=== PATIENT | male | born 1950 | race Caucasian/White ===

== ENCOUNTER 2018-01-31 03:08 | Outpatient (RCR) | payer MEDICARE, SELFPAY ==
[2018-01-31] MEDS: Normal Saline Flush 10 ML SYR IVP (11:20)
[2018-01-31 11:51] LABS: Abs Immature Grans 0.07 k/cumm (0.0-0.09); Absolute Basophil Count 0.04 k/cumm (0.0-0.2); Absolute Eosinophil Count 0.11 k/cumm (0.0-0.7); Absolute Lymphocyte Count 1.79 k/cumm (1.2-3.4); Basophils % 0.3; Eosinophils % 0.9; HCT 38.9 % (40.0-50.0); HGB 12.3 g/dL (13.5-17.5); Immature Grans % 0.6; Lymphocytes % 14.1; Mean Corp. HGB Concentration 31.6 g/dL (32.0-36.0); Mean Corpuscular Hemoglobin 26.9 pg (27.0-33.0); Mean Corpuscular Volume 85.1 fL (80-95); Mean Platelet Volume 9.1 fL (8.0-11.0); Monocytes % 5.8; Neutrophils % 78.3; Platelet Count 329 x1000/uL (130-400); RBC 4.57 m/cumm (4.50-6.00); RBC Distribution Width 17.7 % (11.8-14.1); White Blood Cell Count 12.69 k/cumm (4.4-10.8)
[2018-01-31 11:52] LABS: Absolute Monocyte Count 0.74 k/cumm (0.11-0.7); Absolute Neutrophil Count 9.94 k/cumm (1.2-6.7)
[2018-01-31 12:13] LABS: ALT 17 U/L (12-78); AST 11 U/L (15-37); Albumin 3.2 g/dL (3.4-5.0); Alkaline Phosphatase 107 U/L (46-116); Anion Gap 9.2 mmol/L (3-11); BUN 20 mg/dL (7-18); Bilirubin, Total 0.3 mg/dL (0.2-1.0); CO2 26.8 mmol/L (21.0-32.0); Calcium 8.5 mg/dL (8.5-10.1); Chloride 100 mmol/L (98-107); Estimated GFR 55.23 (mL/min/1.73m2); Glucose 131 mg/dL (70-100); Potassium 3.9 mmol/L (3.5-5.1); Sodium 136 mmol/L (136-145); TSH 0.89 uIU/mL (0.358-3.74)
[2018-01-31 12:23] LABS: T4 9.8 ug/dL (4.5-12.5)
[2018-02-14] MEDS: Normal Saline Flush 10 ML SYR IVP (07:15)
[2018-02-14 07:40] LABS: Abs Immature Grans 0.07 k/cumm (0.0-0.09); Absolute Basophil Count 0.06 k/cumm (0.0-0.2); Absolute Lymphocyte Count 1.52 k/cumm (1.2-3.4); Absolute Monocyte Count 0.84 k/cumm (0.11-0.7); Absolute Neutrophil Count 7.67 k/cumm (1.2-6.7); Basophils % 0.6; Eosinophils % 1.9; HCT 41.3 % (40.0-50.0); Immature Grans % 0.7; Lymphocytes % 14.7; Mean Corp. HGB Concentration 31.5 g/dL (32.0-36.0); Mean Corpuscular Hemoglobin 26.9 pg (27.0-33.0); Mean Corpuscular Volume 85.3 fL (80-95); Mean Platelet Volume 8.8 fL (8.0-11.0); Monocytes % 8.1; Platelet Count 347 x1000/uL (130-400); RBC 4.84 m/cumm (4.50-6.00); RBC Distribution Width 17.9 % (11.8-14.1); White Blood Cell Count 10.36 k/cumm (4.4-10.8)
[2018-02-14 07:58] LABS: ALT 16 U/L (12-78); AST 11 U/L (15-37); Albumin 3.3 g/dL (3.4-5.0); Alkaline Phosphatase 96 U/L (46-116); Anion Gap 8.2 mmol/L (3-11); BUN 23 mg/dL (7-18); Bilirubin, Total 0.4 mg/dL (0.2-1.0); CO2 25.8 mmol/L (21.0-32.0); CREATININE 1.34 mg/dL (0.70-1.30); Calcium 8.8 mg/dL (8.5-10.1); Chloride 99 mmol/L (98-107); Estimated GFR 53.33 (mL/min/1.73m2); Glucose 138 mg/dL (70-100); Potassium 4.1 mmol/L (3.5-5.1); Sodium 133 mmol/L (136-145); TSH 1.32 uIU/mL (0.358-3.74); Total Protein 8.3 g/dL (6.4-8.2)
[2018-02-14 08:09] LABS: T4 8.8 ug/dL (4.5-12.5)
== END 2018-02-15 ==
LOC: INF 02-14 01:49
PROVIDERS: Visit Provider Internal Medicine Medical Oncology
DX: E03.2 Hypothyroidism due to medicaments and other exogenous substances (principal); C34.91 Malignant neoplasm of unspecified part of right bronchus or lung; Z45.2 Encounter for adjustment and management of vascular access device
CPT/HCPCS: 36591 ×2; 80053; 84436; 84443; 85025

== ENCOUNTER 2018-03-14 01:38 | Outpatient (RCR) | payer MEDICARE, OTHER, SELFPAY ==
[2018-02-28] MEDS: Normal Saline Flush 10 ML SYR IVP (09:45)
[2018-02-28 10:08] LABS: Abs Immature Grans 0.06 k/cumm (0.0-0.09); Absolute Basophil Count 0.04 k/cumm (0.0-0.2); Absolute Eosinophil Count 0.11 k/cumm (0.0-0.7); Absolute Lymphocyte Count 1.66 k/cumm (1.2-3.4); Basophils % 0.4; HCT 40.4 % (40.0-50.0); HGB 12.8 g/dL (13.5-17.5); Immature Grans % 0.6; Lymphocytes % 15.6; Mean Corp. HGB Concentration 31.7 g/dL (32.0-36.0); Mean Corpuscular Hemoglobin 26.9 pg (27.0-33.0); Mean Corpuscular Volume 84.9 fL (80-95); Mean Platelet Volume 8.8 fL (8.0-11.0); Monocytes % 6.6; Neutrophils % 75.8; Platelet Count 356 x1000/uL (130-400); RBC 4.76 m/cumm (4.50-6.00); RBC Distribution Width 17.6 % (11.8-14.1); White Blood Cell Count 10.67 k/cumm (4.4-10.8)
[2018-02-28 10:34] LABS: ALT 18 U/L (12-78); AST 12 U/L (15-37); Albumin 3.1 g/dL (3.4-5.0); Alkaline Phosphatase 98 U/L (46-116); Anion Gap 7.5 mmol/L (3-11); BUN 20 mg/dL (7-18); Bilirubin, Total 0.3 mg/dL (0.2-1.0); CO2 26.5 mmol/L (21.0-32.0); CREATININE 1.31 mg/dL (0.70-1.30); Calcium 8.7 mg/dL (8.5-10.1); Chloride 100 mmol/L (98-107); Estimated GFR 54.74 (mL/min/1.73m2); Glucose 154 mg/dL (70-100); Potassium 4.1 mmol/L (3.5-5.1); Sodium 134 mmol/L (136-145); TSH 1.36 uIU/mL (0.358-3.74); Total Protein 8.1 g/dL (6.4-8.2)
[2018-03-14] MEDS: Normal Saline Flush 10 ML SYR IVP (08:25)
[2018-03-14 08:30] LABS: Abs Immature Grans 0.09 k/cumm (0.0-0.09); Absolute Basophil Count 0.04 k/cumm (0.0-0.2); Absolute Lymphocyte Count 1.67 k/cumm (1.2-3.4); Absolute Monocyte Count 0.68 k/cumm (0.11-0.7); Absolute Neutrophil Count 7.66 k/cumm (1.2-6.7); Basophils % 0.4; Eosinophils % 1.9; HCT 40.8 % (40.0-50.0); HGB 12.6 g/dL (13.5-17.5); Immature Grans % 0.9; Lymphocytes % 16.2; Mean Corp. HGB Concentration 30.9 g/dL (32.0-36.0); Mean Corpuscular Hemoglobin 26.6 pg (27.0-33.0); Mean Corpuscular Volume 86.3 fL (80-95); Mean Platelet Volume 8.6 fL (8.0-11.0); Monocytes % 6.6; Platelet Count 346 x1000/uL (130-400); RBC 4.73 m/cumm (4.50-6.00); RBC Distribution Width 17.6 % (11.8-14.1); White Blood Cell Count 10.34 k/cumm (4.4-10.8)
[2018-03-14 08:51] LABS: ALT 19 U/L (12-78); AST 14 U/L (15-37); Albumin 3.2 g/dL (3.4-5.0); Alkaline Phosphatase 98 U/L (46-116); BUN 19 mg/dL (7-18); Bilirubin, Total 0.2 mg/dL (0.2-1.0); CREATININE 1.35 mg/dL (0.70-1.30); Calcium 8.5 mg/dL (8.5-10.1); Chloride 102 mmol/L (98-107); Estimated GFR 52.88 (mL/min/1.73m2); Glucose 153 mg/dL (70-100); Potassium 4.1 mmol/L (3.5-5.1); Sodium 137 mmol/L (136-145); T4 9.1 ug/dL (4.5-12.5); TSH 1.47 uIU/mL (0.358-3.74); Total Protein 7.7 g/dL (6.4-8.2)
== END 2018-03-17 23:59 | disposition home or self-care (01) ==
LOC: INF 01:38
PROVIDERS: Visit Provider Internal Medicine Medical Oncology
DX: C34.91 Malignant neoplasm of unspecified part of right bronchus or lung (principal); E03.2 Hypothyroidism due to medicaments and other exogenous substances; Z45.2 Encounter for adjustment and management of vascular access device
CPT/HCPCS: 36591; 80053; 84436; 84443; 85025

== ENCOUNTER 2018-04-10 01:33 | Outpatient (CLI) | payer OTHER, MEDICARE, SELFPAY ==
[2018-04-10] MEDS: Breeza Beverage 473 ML BTL PO ×2 (12:42→12:48)
[2018-04-10] MEDS: Omnipaque 350 MG/ML 50 ML BTL PO (12:44)
--- NOTE | 2018-04-10 13:49 | DI.CT_ITS ---
SYMPTOMS/DIAGNOSIS: METS LUNG CA, ON TARGETED THERAPY, RESTAGING, C34.91 CT OF THE CHEST, ABDOMEN AND PELVIS: Comparison is made with [id number]. CHEST CT: There is a stable moderate sized right pleural effusion. There has been no significant change in opacities in the right upper lobe. There is right sided volume loss. There is no change in a 10 mm right paratracheal lymph node. No pericardial effusion or left pleural effusion is seen. No new pulmonary nodules are seen. ABDOMEN AND PELVIS CT: There is a stable tiny hypodensity in the posterior left lobe of the liver. The liver is somewhat enlarged and shows diffuse fatty infiltration. The gallbladder , spleen and left adrenal are unremarkable. There are two stable right adrenal masses. The pancreas is unremarkable. There is mild bilateral renal scarring and a few tiny cysts. The bladder is unremarkable. The prostate is slightly enlarged. No bowel dilatation or inflammatory changes are seen. There is no evidence of ascites. Degenerative changes are seen in the spine. IMPRESSION: Stable appearance of the right perihilar mass and stable right pleural effusion. No metastatic disease is identified in the abdomen or pelvis.
[2018-04-10] MEDS: Omnipaque 350 MG/ML 100 ML BTL IJ (14:00)
== END 2018-04-10 01:53 ==
PROVIDERS: Visit Provider Nurse Practitioner Adult Health
DX: C34.91 Malignant neoplasm of unspecified part of right bronchus or lung (principal); J90 Pleural effusion, not elsewhere classified; R16.0 Hepatomegaly, not elsewhere classified; K76.0 Fatty (change of) liver, not elsewhere classified; Z12.89 Encounter for screening for malignant neoplasm of other sites
CPT/HCPCS: 74177; 71260; J3490; Q9967

== ENCOUNTER 2018-04-10 01:39 | Outpatient (RCR) | payer MEDICARE, OTHER, SELFPAY ==
[2018-03-28] MEDS: Normal Saline Flush 10 ML SYR IVP (10:25)
[2018-03-28 10:46] LABS: Abs Immature Grans 0.05 k/cumm (0.0-0.09); Absolute Basophil Count 0.04 k/cumm (0.0-0.2); Absolute Eosinophil Count 0.15 k/cumm (0.0-0.7); Absolute Lymphocyte Count 1.51 k/cumm (1.2-3.4); Absolute Monocyte Count 0.65 k/cumm (0.11-0.7); Absolute Neutrophil Count 8.82 k/cumm (1.2-6.7); Basophils % 0.4; Eosinophils % 1.3; HCT 40.7 % (40.0-50.0); HGB 12.9 g/dL (13.5-17.5); Immature Grans % 0.4; Lymphocytes % 13.5; Mean Corp. HGB Concentration 31.7 g/dL (32.0-36.0); Mean Corpuscular Hemoglobin 27.1 pg (27.0-33.0); Mean Corpuscular Volume 85.5 fL (80-95); Mean Platelet Volume 8.8 fL (8.0-11.0); Monocytes % 5.8; Neutrophils % 78.6; Platelet Count 322 x1000/uL (130-400); RBC 4.76 m/cumm (4.50-6.00); White Blood Cell Count 11.22 k/cumm (4.4-10.8)
[2018-03-28 11:08] LABS: ALT 20 U/L (12-78); AST 15 U/L (15-37); Albumin 3.3 g/dL (3.4-5.0); Alkaline Phosphatase 95 U/L (46-116); Anion Gap 12.3 mmol/L (3-11); BUN 21 mg/dL (7-18); Bilirubin, Total 0.3 mg/dL (0.2-1.0); CO2 25.7 mmol/L (21.0-32.0); CREATININE 1.38 mg/dL (0.70-1.30); Calcium 8.4 mg/dL (8.5-10.1); Chloride 100 mmol/L (98-107); Estimated GFR 51.55 (mL/min/1.73m2); Glucose 141 mg/dL (70-100); Potassium 4.1 mmol/L (3.5-5.1); Sodium 138 mmol/L (136-145); T4 8.8 ug/dL (4.5-12.5); TSH 1.75 uIU/mL (0.358-3.74); Total Protein 7.9 g/dL (6.4-8.2)
[2018-04-10] MEDS: Normal Saline Flush 10 ML SYR IVP (12:30)
[2018-04-10 12:39] LABS: Abs Immature Grans 0.05 k/cumm (0.0-0.09); Absolute Basophil Count 0.05 k/cumm (0.0-0.2); Absolute Eosinophil Count 0.19 k/cumm (0.0-0.7); Absolute Lymphocyte Count 1.64 k/cumm (1.2-3.4); Absolute Monocyte Count 0.65 k/cumm (0.11-0.7); Absolute Neutrophil Count 8.01 k/cumm (1.2-6.7); Basophils % 0.5; Eosinophils % 1.8; HCT 40.9 % (40.0-50.0); HGB 12.8 g/dL (13.5-17.5); Immature Grans % 0.5; Lymphocytes % 15.5; Mean Corp. HGB Concentration 31.3 g/dL (32.0-36.0); Mean Corpuscular Hemoglobin 26.7 pg (27.0-33.0); Mean Corpuscular Volume 85.4 fL (80-95); Mean Platelet Volume 8.8 fL (8.0-11.0); Monocytes % 6.1; Neutrophils % 75.6; Platelet Count 344 x1000/uL (130-400); RBC 4.79 m/cumm (4.50-6.00); RBC Distribution Width 16.8 % (11.8-14.1); White Blood Cell Count 10.59 k/cumm (4.4-10.8)
[2018-04-10 12:59] LABS: ALT 19 U/L (12-78); AST 13 U/L (15-37); Alkaline Phosphatase 77 U/L (46-116); Anion Gap 9.8 mmol/L (3-11); BUN 23 mg/dL (7-18); Bilirubin, Total 0.3 mg/dL (0.2-1.0); CO2 25.2 mmol/L (21.0-32.0); CREATININE 1.25 mg/dL (0.70-1.30); Calcium 8.3 mg/dL (8.5-10.1); Chloride 102 mmol/L (98-107); Estimated GFR 57.79 (mL/min/1.73m2); Glucose 105 mg/dL (70-100); Potassium 3.9 mmol/L (3.5-5.1); Sodium 137 mmol/L (136-145); T4 7.8 ug/dL (4.5-12.5); TSH 2.42 uIU/mL (0.358-3.74); Total Protein 7.3 g/dL (6.4-8.2)
[2018-04-10] MEDS: Heparin 500 UNITS/5 ML SYRINGE IV (14:00)
== END 2018-04-17 23:59 | disposition home or self-care (01) ==
LOC: INF 01:39
PROVIDERS: Visit Provider Internal Medicine Medical Oncology
DX: C34.91 Malignant neoplasm of unspecified part of right bronchus or lung (principal); E03.2 Hypothyroidism due to medicaments and other exogenous substances; Z45.2 Encounter for adjustment and management of vascular access device
CPT/HCPCS: 36591; 74177; 80053; 71260; 84436; 84443; 85025; J3490; Q9967

== ENCOUNTER 2018-05-10 00:44 | Outpatient (RCR) | payer MEDICARE, OTHER, SELFPAY ==
[2018-04-25] MEDS: Normal Saline Flush 10 ML SYR IVP (12:05)
[2018-04-25 12:30] LABS: Abs Immature Grans 0.07 k/cumm (0.0-0.09); Absolute Basophil Count 0.05 k/cumm (0.0-0.2); Absolute Eosinophil Count 0.17 k/cumm (0.0-0.7); Absolute Lymphocyte Count 1.64 k/cumm (1.2-3.4); Absolute Monocyte Count 0.61 k/cumm (0.11-0.7); Absolute Neutrophil Count 7.53 k/cumm (1.2-6.7); Basophils % 0.5; Eosinophils % 1.7; HCT 41.1 % (40.0-50.0); Immature Grans % 0.7; Lymphocytes % 16.3; Mean Corp. HGB Concentration 31.6 g/dL (32.0-36.0); Mean Corpuscular Volume 85.3 fL (80-95); Mean Platelet Volume 8.9 fL (8.0-11.0); Monocytes % 6.1; Neutrophils % 74.7; Platelet Count 338 x1000/uL (130-400); RBC 4.82 m/cumm (4.50-6.00); RBC Distribution Width 16.7 % (11.8-14.1); White Blood Cell Count 10.07 k/cumm (4.4-10.8)
[2018-04-25 13:10] LABS: ALT 13 U/L (12-78); AST 14 U/L (15-37); Albumin 3.2 g/dL (3.4-5.0); Alkaline Phosphatase 86 U/L (46-116); Anion Gap 11.1 mmol/L (3-11); BUN 19 mg/dL (7-18); Bilirubin, Total 0.3 mg/dL (0.2-1.0); CO2 23.9 mmol/L (21.0-32.0); CREATININE 1.35 mg/dL (0.70-1.30); Calcium 8.5 mg/dL (8.5-10.1); Chloride 100 mmol/L (98-107); Estimated GFR 52.88 (mL/min/1.73m2); Glucose 135 mg/dL (70-100); Potassium 4.3 mmol/L (3.5-5.1); Sodium 135 mmol/L (136-145); T4 8.7 ug/dL (4.5-12.5); TSH 2.15 uIU/mL (0.358-3.74); Total Protein 7.6 g/dL (6.4-8.2)
[2018-05-10] MEDS: Normal Saline Flush 10 ML SYR IVP (09:00)
[2018-05-10 09:13] LABS: Abs Immature Grans 0.06 k/cumm (0.0-0.09); Absolute Basophil Count 0.03 k/cumm (0.0-0.2); Absolute Eosinophil Count 0.16 k/cumm (0.0-0.7); Absolute Lymphocyte Count 1.52 k/cumm (1.2-3.4); Absolute Monocyte Count 0.65 k/cumm (0.11-0.7); Absolute Neutrophil Count 7.41 k/cumm (1.2-6.7); Basophils % 0.3; Eosinophils % 1.6; HCT 41.2 % (40.0-50.0); HGB 12.9 g/dL (13.5-17.5); Immature Grans % 0.6; Lymphocytes % 15.5; Mean Corp. HGB Concentration 31.3 g/dL (32.0-36.0); Mean Corpuscular Hemoglobin 26.5 pg (27.0-33.0); Mean Corpuscular Volume 84.6 fL (80-95); Monocytes % 6.6; Neutrophils % 75.4; Platelet Count 339 x1000/uL (130-400); RBC 4.87 m/cumm (4.50-6.00); RBC Distribution Width 16.5 % (11.8-14.1); White Blood Cell Count 9.83 k/cumm (4.4-10.8)
[2018-05-10 09:34] LABS: ALT 18 U/L (12-78); AST 14 U/L (15-37); Albumin 3.2 g/dL (3.4-5.0); Alkaline Phosphatase 85 U/L (46-116); BUN 21 mg/dL (7-18); Bilirubin, Total 0.4 mg/dL (0.2-1.0); CREATININE 1.54 mg/dL (0.70-1.30); Calcium 8.9 mg/dL (8.5-10.1); Chloride 97 mmol/L (98-107); Estimated GFR 45.42 (mL/min/1.73m2); Glucose 123 mg/dL (70-100); Potassium 4.3 mmol/L (3.5-5.1); Sodium 133 mmol/L (136-145); T4 8.4 ug/dL (4.5-12.5); TSH 1.51 uIU/mL (0.358-3.74); Total Protein 7.9 g/dL (6.4-8.2)
== END 2018-05-17 23:59 | disposition home or self-care (01) ==
LOC: INF 00:44
PROVIDERS: Visit Provider Internal Medicine Medical Oncology
DX: C34.91 Malignant neoplasm of unspecified part of right bronchus or lung (principal); E03.2 Hypothyroidism due to medicaments and other exogenous substances; Z45.2 Encounter for adjustment and management of vascular access device
CPT/HCPCS: 36591; 80053; 84436; 84443; 85025

== ENCOUNTER 2018-06-06 08:15 | Outpatient (RCR) | payer MEDICARE, OTHER, SELFPAY ==
[2018-05-23] MEDS: Normal Saline Flush 10 ML SYR IVP (08:50)
[2018-05-23 09:26] LABS: Abs Immature Grans 0.06 k/cumm (0.0-0.09); Absolute Basophil Count 0.03 k/cumm (0.0-0.2); Absolute Eosinophil Count 0.13 k/cumm (0.0-0.7); Absolute Lymphocyte Count 1.58 k/cumm (1.2-3.4); Absolute Monocyte Count 0.64 k/cumm (0.11-0.7); Absolute Neutrophil Count 10.18 k/cumm (1.2-6.7); Basophils % 0.2; HGB 13.3 g/dL (13.5-17.5); Immature Grans % 0.5; Lymphocytes % 12.5; Mean Corp. HGB Concentration 31.7 g/dL (32.0-36.0); Mean Corpuscular Volume 85.4 fL (80-95); Monocytes % 5.1; Neutrophils % 80.7; Platelet Count 343 x1000/uL (130-400); RBC 4.92 m/cumm (4.50-6.00); RBC Distribution Width 16.8 % (11.8-14.1); White Blood Cell Count 12.62 k/cumm (4.4-10.8)
[2018-05-23 10:06] LABS: ALT 19 U/L (12-78); AST 13 U/L (15-37); Albumin 3.3 g/dL (3.4-5.0); Alkaline Phosphatase 89 U/L (46-116); Anion Gap 11.3 mmol/L (3-11); BUN 23 mg/dL (7-18); Bilirubin, Total 0.4 mg/dL (0.2-1.0); CO2 25.7 mmol/L (21.0-32.0); CREATININE 1.47 mg/dL (0.70-1.30); Chloride 102 mmol/L (98-107); Estimated GFR 47.93 (mL/min/1.73m2); Glucose 144 mg/dL (70-100); Potassium 4.5 mmol/L (3.5-5.1); Sodium 139 mmol/L (136-145); T4 8.9 ug/dL (4.5-12.5); Total Protein 7.9 g/dL (6.4-8.2)
[2018-06-06] MEDS: Normal Saline Flush 10 ML SYR IVP (08:47)
[2018-06-06 08:49] LABS: Abs Immature Grans 0.05 k/cumm (0.0-0.09); Absolute Basophil Count 0.04 k/cumm (0.0-0.2); Absolute Eosinophil Count 0.14 k/cumm (0.0-0.7); Absolute Lymphocyte Count 1.03 k/cumm (1.2-3.4); Absolute Monocyte Count 0.53 k/cumm (0.11-0.7); Absolute Neutrophil Count 8.44 k/cumm (1.2-6.7); Basophils % 0.4; Eosinophils % 1.4; Immature Grans % 0.5; Lymphocytes % 10.1; Mean Corp. HGB Concentration 31.7 g/dL (32.0-36.0); Mean Corpuscular Hemoglobin 27.1 pg (27.0-33.0); Mean Corpuscular Volume 85.6 fL (80-95); Mean Platelet Volume 8.5 fL (8.0-11.0); Monocytes % 5.2; Neutrophils % 82.4; Platelet Count 316 x1000/uL (130-400); RBC 4.79 m/cumm (4.50-6.00); RBC Distribution Width 17.4 % (11.8-14.1); White Blood Cell Count 10.23 k/cumm (4.4-10.8)
[2018-06-06 09:15] LABS: ALT 23 U/L (12-78); AST 14 U/L (15-37); Albumin 3.2 g/dL (3.4-5.0); Alkaline Phosphatase 90 U/L (46-116); Anion Gap 11.8 mmol/L (3-11); BUN 19 mg/dL (7-18); Bilirubin, Total 0.3 mg/dL (0.2-1.0); CO2 25.2 mmol/L (21.0-32.0); CREATININE 1.41 mg/dL (0.70-1.30); Calcium 8.7 mg/dL (8.5-10.1); Chloride 101 mmol/L (98-107); Estimated GFR 50.29 (mL/min/1.73m2); Glucose 149 mg/dL (70-100); Potassium 4.2 mmol/L (3.5-5.1); Sodium 138 mmol/L (136-145); TSH 1.64 uIU/mL (0.358-3.74); Total Protein 7.8 g/dL (6.4-8.2)
[2018-06-06 14:15] LABS: T4 8.5 ug/dL (4.5-12.5)
== END 2018-06-17 23:59 | disposition home or self-care (01) ==
LOC: INF 08:15
PROVIDERS: Internal Medicine Hematology & Oncology; Visit Provider Internal Medicine Medical Oncology
DX: C34.91 Malignant neoplasm of unspecified part of right bronchus or lung (principal); E03.2 Hypothyroidism due to medicaments and other exogenous substances; Z45.2 Encounter for adjustment and management of vascular access device
CPT/HCPCS: 36415; 36591; 80053; 96523; 84436; 84443; 85025

== ENCOUNTER 2018-07-18 01:29 | Outpatient (RCR) | payer OTHER, MEDICARE, SELFPAY ==
[2018-06-20] MEDS: Normal Saline Flush 10 ML SYR IVP (10:27)
[2018-06-20 10:34] LABS: Abs Immature Grans 0.08 k/cumm (0.0-0.09); Absolute Basophil Count 0.04 k/cumm (0.0-0.2); Absolute Eosinophil Count 0.16 k/cumm (0.0-0.7); Absolute Lymphocyte Count 1.65 k/cumm (1.2-3.4); Absolute Monocyte Count 0.64 k/cumm (0.11-0.7); Absolute Neutrophil Count 8.19 k/cumm (1.2-6.7); Basophils % 0.4; Eosinophils % 1.5; HCT 40.5 % (40.0-50.0); HGB 12.9 g/dL (13.5-17.5); Immature Grans % 0.7; Lymphocytes % 15.3; Mean Corp. HGB Concentration 31.9 g/dL (32.0-36.0); Mean Corpuscular Hemoglobin 27.3 pg (27.0-33.0); Mean Corpuscular Volume 85.6 fL (80-95); Mean Platelet Volume 8.5 fL (8.0-11.0); Monocytes % 5.9; Neutrophils % 76.2; Platelet Count 349 x1000/uL (130-400); RBC 4.73 m/cumm (4.50-6.00); RBC Distribution Width 17.4 % (11.8-14.1); White Blood Cell Count 10.76 k/cumm (4.4-10.8)
[2018-06-20 10:48] LABS: ALT 20 U/L (12-78); AST 14 U/L (15-37); Albumin 3.1 g/dL (3.4-5.0); Alkaline Phosphatase 90 U/L (46-116); BUN 23 mg/dL (7-18); Bilirubin, Total 0.3 mg/dL (0.2-1.0); CREATININE 1.46 mg/dL (0.70-1.30); Calcium 8.7 mg/dL (8.5-10.1); Chloride 101 mmol/L (98-107); Estimated GFR 48.31 (mL/min/1.73m2); Glucose 130 mg/dL (70-100); Potassium 4.1 mmol/L (3.5-5.1); Sodium 138 mmol/L (136-145); Total Protein 7.7 g/dL (6.4-8.2)
[2018-07-04] MEDS: Normal Saline Flush 10 ML SYR IVP (10:29)
[2018-07-04 10:48] LABS: Abs Immature Grans 0.06 k/cumm (0.0-0.09); Absolute Basophil Count 0.05 k/cumm (0.0-0.2); Absolute Eosinophil Count 0.19 k/cumm (0.0-0.7); Absolute Monocyte Count 0.68 k/cumm (0.11-0.7); Absolute Neutrophil Count 8.66 k/cumm (1.2-6.7); Basophils % 0.4; Eosinophils % 1.7; HCT 41.1 % (40.0-50.0); HGB 13.1 g/dL (13.5-17.5); Immature Grans % 0.5; Mean Corp. HGB Concentration 31.9 g/dL (32.0-36.0); Mean Corpuscular Hemoglobin 27.3 pg (27.0-33.0); Mean Corpuscular Volume 85.8 fL (80-95); Mean Platelet Volume 8.6 fL (8.0-11.0); Neutrophils % 76.4; Platelet Count 351 x1000/uL (130-400); RBC 4.79 m/cumm (4.50-6.00); RBC Distribution Width 17.6 % (11.8-14.1); White Blood Cell Count 11.34 k/cumm (4.4-10.8)
[2018-07-04 11:01] LABS: ALT 18 U/L (12-78); AST 12 U/L (15-37); Albumin 3.2 g/dL (3.4-5.0); Alkaline Phosphatase 90 U/L (46-116); Anion Gap 11.8 mmol/L (3-11); BUN 20 mg/dL (7-18); Bilirubin, Total 0.3 mg/dL (0.2-1.0); CO2 26.2 mmol/L (21.0-32.0); CREATININE 1.44 mg/dL (0.70-1.30); Calcium 8.7 mg/dL (8.5-10.1); Chloride 101 mmol/L (98-107); Estimated GFR 49.08 (mL/min/1.73m2); Glucose 155 mg/dL (70-100); Potassium 3.8 mmol/L (3.5-5.1); Sodium 139 mmol/L (136-145); Total Protein 7.9 g/dL (6.4-8.2)
[2018-07-18] MEDS: Normal Saline Flush 10 ML SYR IVP (09:25)
[2018-07-18 09:47] LABS: Abs Immature Grans 0.07 k/cumm (0.0-0.09); Absolute Basophil Count 0.05 k/cumm (0.0-0.2); Absolute Eosinophil Count 0.15 k/cumm (0.0-0.7); Absolute Lymphocyte Count 1.77 k/cumm (1.2-3.4); Absolute Monocyte Count 0.65 k/cumm (0.11-0.7); Basophils % 0.4; Eosinophils % 1.2; HCT 40.8 % (40.0-50.0); Immature Grans % 0.6; Lymphocytes % 14.4; Mean Corp. HGB Concentration 31.9 g/dL (32.0-36.0); Mean Corpuscular Hemoglobin 27.4 pg (27.0-33.0); Mean Corpuscular Volume 85.9 fL (80-95); Mean Platelet Volume 8.6 fL (8.0-11.0); Monocytes % 5.3; Neutrophils % 78.1; Platelet Count 323 x1000/uL (130-400); RBC 4.75 m/cumm (4.50-6.00); RBC Distribution Width 17.9 % (11.8-14.1); White Blood Cell Count 12.29 k/cumm (4.4-10.8)
[2018-07-18 10:10] LABS: ALT 19 U/L (12-78); AST 14 U/L (15-37); Alkaline Phosphatase 86 U/L (46-116); Anion Gap 9.6 mmol/L (3-11); BUN 17 mg/dL (7-18); Bilirubin, Total 0.4 mg/dL (0.2-1.0); CO2 27.4 mmol/L (21.0-32.0); Calcium 8.7 mg/dL (8.5-10.1); Chloride 97 mmol/L (98-107); Estimated GFR 50.55 (mL/min/1.73m2); Glucose 219 mg/dL (70-100); Sodium 134 mmol/L (136-145); T4 8.5 ug/dL (4.5-12.5); TSH 1.32 uIU/mL (0.358-3.74); Total Protein 7.8 g/dL (6.4-8.2)
== END 2018-07-18 23:59 | disposition home or self-care (01) ==
LOC: INF 01:29
PROVIDERS: Internal Medicine Hematology & Oncology; Visit Provider Internal Medicine Hematology & Oncology
DX: C34.91 Malignant neoplasm of unspecified part of right bronchus or lung (principal); E03.2 Hypothyroidism due to medicaments and other exogenous substances; Z45.2 Encounter for adjustment and management of vascular access device
CPT/HCPCS: 36591; 80053; 84436; 84443; 85025

== ENCOUNTER 2018-07-18 14:20 | Outpatient (CLI) | payer OTHER, SELFPAY ==
--- NOTE | 2018-07-18 14:27 | DI.RAD_ITS ---
SYMPTOM/DIAGNOSIS: SEVERELY CONGESTED, H/O LUNG CA, HYPERTENSION, GERD PA AND LATERAL CHEST: Comparison is made with 07/13/17. Scarring and post surgical changes are seen in the right chest. A port is again noted on the right. The left lung appears clear. There is mediastinal shift toward the right due to post surgical volume loss. No acute infiltrate, effusion or pulmonary edema is seen. IMPRESSION: Post surgical changes of the right chest, greatest in the right upper lobe. No definite superimposed acute abnormality is seen.
== END 2018-07-18 14:40 ==
PROVIDERS: Visit Provider Nurse Practitioner Primary Care
DX: I10 Essential (primary) hypertension (principal); K21.9 Gastro-esophageal reflux disease without esophagitis; R09.89 Other specified symptoms and signs involving the circulatory and respiratory systems; Z85.118 Personal history of other malignant neoplasm of bronchus and lung
CPT/HCPCS: 71046

== ENCOUNTER 2018-08-01 01:40 | Outpatient (RCR) | payer MEDICARE, SELFPAY ==
[2018-08-01] MEDS: Normal Saline Flush 10 ML SYR IVP (12:04)
[2018-08-01 12:14] LABS: Abs Immature Grans 0.11 k/cumm (0.0-0.09); Absolute Basophil Count 0.05 k/cumm (0.0-0.2); Absolute Eosinophil Count 0.18 k/cumm (0.0-0.7); Absolute Lymphocyte Count 2.28 k/cumm (1.2-3.4); Basophils % 0.4; Eosinophils % 1.5; HCT 41.1 % (40.0-50.0); HGB 12.8 g/dL (13.5-17.5); Immature Grans % 0.9; Lymphocytes % 19.3; Mean Corp. HGB Concentration 31.1 g/dL (32.0-36.0); Mean Corpuscular Hemoglobin 27.2 pg (27.0-33.0); Mean Corpuscular Volume 87.3 fL (80-95); Mean Platelet Volume 8.8 fL (8.0-11.0); Monocytes % 6.8; Neutrophils % 71.1; Platelet Count 380 x1000/uL (130-400); RBC 4.71 m/cumm (4.50-6.00); RBC Distribution Width 18.1 % (11.8-14.1); White Blood Cell Count 11.79 k/cumm (4.4-10.8)
[2018-08-01 12:18] LABS: Absolute Neutrophil Count 8.38 k/cumm (1.2-6.7)
[2018-08-01 12:27] LABS: Anisocytosis 1+; Diff Comment RBC Morph Reviewed
[2018-08-01 12:33] LABS: ALT 17 U/L (12-78); AST 11 U/L (15-37); Albumin 3.1 g/dL (3.4-5.0); Alkaline Phosphatase 83 U/L (46-116); Anion Gap 12.8 mmol/L (3-11); BUN 20 mg/dL (7-18); Bilirubin, Total 0.3 mg/dL (0.2-1.0); CO2 25.2 mmol/L (21.0-32.0); CREATININE 1.38 mg/dL (0.70-1.30); Calcium 8.9 mg/dL (8.5-10.1); Chloride 98 mmol/L (98-107); Glucose 158 mg/dL (70-100); Potassium 3.5 mmol/L (3.5-5.1); Sodium 136 mmol/L (136-145); T4 8.3 ug/dL (4.5-12.5); TSH 1.54 uIU/mL (0.358-3.74); Total Protein 7.9 g/dL (6.4-8.2)
== END 2018-08-15 23:59 | disposition home or self-care (01) ==
LOC: INF 01:40
PROVIDERS: Visit Provider Internal Medicine Hematology & Oncology
DX: C34.91 Malignant neoplasm of unspecified part of right bronchus or lung (principal); E03.2 Hypothyroidism due to medicaments and other exogenous substances; Z45.2 Encounter for adjustment and management of vascular access device
CPT/HCPCS: 36591; 80053; 84436; 84443; 85025

== ENCOUNTER 2018-09-02 00:44 | Outpatient (CLI) | payer OTHER, SELFPAY ==
--- NOTE | 2018-09-02 13:18 | DI.CT_ITS ---
SYMPTOM/DIAGNOSIS: F/U LUNG CANCER, PRIMARY LUNG ADENOCARCINOMA C34.91 CT CHEST: CT scan of the chest was performed following the uneventful administration of intravenous contrast material. Comparison are 01/15/18 and 04/10/18. There is atherosclerosis of the thoracic aorta but no aneurysmal dilatation is seen. The heart size is within normal limits. No significant pericardial effusion seen. Coronary artery calcifications are present. The upper abdominal images again show nodules in the right adrenal gland which appears stable. There is diffuse decreased attenuation of the liver consistent with hepatic steatosis. There is a small hiatal hernia present. Central lobular and paraseptal emphysematous changes are present in the lungs. The left lung is clear. The air space opacities in the right lung appear stable. There is again seen loss of volume of the right lung and a right pleural effusion. Stable chronic changes are seen in the spine. No aggressive osseous lesions are present. IMPRESSION: No change in appearance of the CT scan of the chest since 04/10/18.
[2018-09-02] MEDS: Omnipaque 350 MG/ML 100 ML BTL IV (13:20)
== END 2018-09-02 01:04 ==
PROVIDERS: Visit Provider Internal Medicine Hematology & Oncology
DX: C34.91 Malignant neoplasm of unspecified part of right bronchus or lung (principal); K76.0 Fatty (change of) liver, not elsewhere classified; K44.9 Diaphragmatic hernia without obstruction or gangrene
CPT/HCPCS: 71260; J3490

== ENCOUNTER 2018-09-02 01:21 | Outpatient (RCR) | payer OTHER, SELFPAY ==
[2018-08-22] MEDS: Normal Saline Flush 10 ML SYR IVP (12:13)
[2018-08-22 12:20] LABS: Abs Immature Grans 0.07 k/cumm (0.0-0.09); Absolute Basophil Count 0.03 k/cumm (0.0-0.2); Absolute Eosinophil Count 0.13 k/cumm (0.0-0.7); Absolute Lymphocyte Count 1.35 k/cumm (1.2-3.4); Absolute Monocyte Count 0.43 k/cumm (0.11-0.7); Absolute Neutrophil Count 7.49 k/cumm (1.2-6.7); Basophils % 0.3; Eosinophils % 1.4; HCT 38.3 % (40.0-50.0); HGB 12.3 g/dL (13.5-17.5); Immature Grans % 0.7; Lymphocytes % 14.2; Mean Corp. HGB Concentration 32.1 g/dL (32.0-36.0); Mean Corpuscular Volume 87.2 fL (80-95); Mean Platelet Volume 8.9 fL (8.0-11.0); Monocytes % 4.5; Neutrophils % 78.9; Platelet Count 325 x1000/uL (130-400); RBC 4.39 m/cumm (4.50-6.00); RBC Distribution Width 17.5 % (11.8-14.1)
[2018-08-22 12:42] LABS: ALT 19 U/L (12-78); AST 17 U/L (15-37); Albumin 3.1 g/dL (3.4-5.0); Alkaline Phosphatase 82 U/L (46-116); Anion Gap 8.6 mmol/L (3-11); BUN 22 mg/dL (7-18); Bilirubin, Total 0.3 mg/dL (0.2-1.0); CO2 26.4 mmol/L (21.0-32.0); CREATININE 1.43 mg/dL (0.70-1.30); Calcium 8.8 mg/dL (8.5-10.1); Chloride 99 mmol/L (98-107); Estimated GFR 49.33 (mL/min/1.73m2); Glucose 134 mg/dL (70-100); Potassium 3.6 mmol/L (3.5-5.1); Sodium 134 mmol/L (136-145); T4 8.4 ug/dL (4.5-12.5); TSH 1.17 uIU/mL (0.358-3.74); Total Protein 7.5 g/dL (6.4-8.2)
[2018-09-02 12:12] LABS: Abs Immature Grans 0.03 k/cumm (0.0-0.09); Absolute Basophil Count 0.03 k/cumm (0.0-0.2); Absolute Eosinophil Count 0.14 k/cumm (0.0-0.7); Absolute Lymphocyte Count 1.52 k/cumm (1.2-3.4); Absolute Monocyte Count 0.48 k/cumm (0.11-0.7); Absolute Neutrophil Count 8.92 k/cumm (1.2-6.7); Basophils % 0.3; Eosinophils % 1.3; HCT 39.4 % (40.0-50.0); HGB 12.5 g/dL (13.5-17.5); Immature Grans % 0.3; Lymphocytes % 13.7; Mean Corp. HGB Concentration 31.7 g/dL (32.0-36.0); Mean Corpuscular Hemoglobin 27.8 pg (27.0-33.0); Mean Corpuscular Volume 87.8 fL (80-95); Mean Platelet Volume 8.9 fL (8.0-11.0); Monocytes % 4.3; Neutrophils % 80.1; Platelet Count 324 x1000/uL (130-400); RBC 4.49 m/cumm (4.50-6.00); White Blood Cell Count 11.13 k/cumm (4.4-10.8)
[2018-09-02] MEDS: Normal Saline Flush 10 ML SYR IVP (12:17)
[2018-09-02] MEDS: Heparin 500 UNITS/5 ML SYRINGE IV (12:17)
[2018-09-02 12:36] LABS: ALT 18 U/L (12-78); AST 15 U/L (15-37); Albumin 3.2 g/dL (3.4-5.0); Alkaline Phosphatase 88 U/L (46-116); Anion Gap 10.5 mmol/L (3-11); BUN 18 mg/dL (7-18); Bilirubin, Total 0.5 mg/dL (0.2-1.0); CO2 27.5 mmol/L (21.0-32.0); CREATININE 1.29 mg/dL (0.70-1.30); Calcium 9.1 mg/dL (8.5-10.1); Chloride 97 mmol/L (98-107); Estimated GFR 55.56 (mL/min/1.73m2); Glucose 114 mg/dL (70-100); Sodium 135 mmol/L (136-145); T4 7.8 ug/dL (4.5-12.5); TSH 1.46 uIU/mL (0.358-3.74); Total Protein 7.8 g/dL (6.4-8.2)
== END 2018-09-15 23:59 | disposition home or self-care (01) ==
LOC: INF 01:21
PROVIDERS: Visit Provider Internal Medicine Hematology & Oncology
DX: C34.91 Malignant neoplasm of unspecified part of right bronchus or lung (principal); E03.2 Hypothyroidism due to medicaments and other exogenous substances; Z45.2 Encounter for adjustment and management of vascular access device
CPT/HCPCS: 36591; 80053; 84436; 84443; 85025

== ENCOUNTER 2018-11-19 00:51 | Outpatient (CLI) | payer OTHER, SELFPAY ==
--- NOTE | 2018-11-19 13:00 | DI.CT_ITS ---
SYMPTOMS/DIAGNOSIS: PRIMARY RIGHT LUNG ADENOCARCINOMA, C34.91, F/U LUNG CA CHEST CT: CT examination of the chest was performed with a bolus infusion of 80 cc of Omnipaque 350. Images obtained through the upper abdomen again show two stable right adrenal masses, unchanged from 04/10/18. These measure about 45 mm and 22 mm in greatest diameter, respectively. Small low attenuation stable right hepatic lobe lesion noted consistent with benign disease. Spleen and pancreas are unremarkable in appearance. Visualized portions of the kidneys are unremarkable. Note is again made of previously described right upper lobe consolidative pulmonary radiodensities, unchanged from examination of 09/02/18 in a patient with a history of right-sided lung carcinoma. Right pleural effusion again noted and unchanged. No new left intrapulmonary nodule or pleural effusion seen. Scattered mediastinal nodes, the largest a 14 mm right paratracheal node, are unchanged. CONCLUSION: Stable appearance of the chest in comparison with previous CT of 09/02/2018. The patient reportedly has a history of metastatic lung carcinoma.
[2018-11-19] MEDS: Omnipaque 350 MG/ML 100 ML BTL IJ (13:46)
== END 2018-11-19 01:11 ==
PROVIDERS: Visit Provider Internal Medicine Hematology & Oncology
DX: C34.91 Malignant neoplasm of unspecified part of right bronchus or lung (principal); J90 Pleural effusion, not elsewhere classified; R59.0 Localized enlarged lymph nodes
CPT/HCPCS: 71260; J3490

== ENCOUNTER 2018-11-28 01:54 | Outpatient (RCR) | payer OTHER, SELFPAY ==
[2018-11-19 12:56] LABS: Abs Immature Grans 0.05 k/cumm (0.0-0.09); Absolute Basophil Count 0.02 k/cumm (0.0-0.2); Absolute Eosinophil Count 0.16 k/cumm (0.0-0.7); Absolute Lymphocyte Count 1.74 k/cumm (1.2-3.4); Absolute Monocyte Count 0.73 k/cumm (0.11-0.7); Absolute Neutrophil Count 8.55 k/cumm (1.2-6.7); Basophils % 0.2; Eosinophils % 1.4; HCT 42.1 % (40.0-50.0); HGB 13.3 g/dL (13.5-17.5); Immature Grans % 0.4; Lymphocytes % 15.5; Mean Corp. HGB Concentration 31.6 g/dL (32.0-36.0); Mean Corpuscular Hemoglobin 27.8 pg (27.0-33.0); Mean Corpuscular Volume 88.1 fL (80-95); Mean Platelet Volume 9.7 fL (8.0-11.0); Monocytes % 6.5; Platelet Count 307 x1000/uL (130-400); RBC 4.78 m/cumm (4.50-6.00); RBC Distribution Width 16.5 % (11.8-14.1); White Blood Cell Count 11.25 k/cumm (4.4-10.8)
[2018-11-19 13:09] LABS: ALT 26 U/L (12-78); AST 15 U/L (15-37); Albumin 3.2 g/dL (3.4-5.0); Alkaline Phosphatase 87 U/L (46-116); Anion Gap 11.8 mmol/L (3-11); BUN 22 mg/dL (7-18); Bilirubin, Total 0.3 mg/dL (0.2-1.0); CO2 25.2 mmol/L (21.0-32.0); CREATININE 1.29 mg/dL (0.70-1.30); Chloride 96 mmol/L (98-107); Estimated GFR 55.56 (mL/min/1.73m2); Glucose 162 mg/dL (70-100); Potassium 3.1 mmol/L (3.5-5.1); Sodium 133 mmol/L (136-145); Total Protein 7.6 g/dL (6.4-8.2)
[2018-11-19 13:22] LABS: Calcium 9.2 mg/dL (8.5-10.1)
[2018-11-19] MEDS: Heparin 500 UNITS/5 ML SYRINGE IV (14:08)
[2018-11-19] MEDS: Normal Saline Flush 10 ML SYR IVP (14:09)
== END 2018-12-15 23:59 | disposition home or self-care (01) ==
LOC: INF 01:54
PROVIDERS: Visit Provider Internal Medicine Hematology & Oncology
DX: C34.91 Malignant neoplasm of unspecified part of right bronchus or lung (principal); Z45.2 Encounter for adjustment and management of vascular access device
CPT/HCPCS: 36591; 80053; 85025

== ENCOUNTER 2019-03-06 01:21 | Outpatient (RCR) | payer OTHER, SELFPAY | END 2019-03-17 23:59 | disposition home or self-care (01) | LOC: INF 01:21 | PROVIDERS: Visit Provider Internal Medicine Hematology & Oncology | DX: R69 Illness, unspecified (principal) ==

== ENCOUNTER 2019-03-20 04:01 | Outpatient (RCR) | payer OTHER, SELFPAY ==
[2019-03-20 10:21] LABS: Abs Immature Grans 0.03 k/cumm (0.0-0.09); Absolute Basophil Count 0.03 k/cumm (0.0-0.2); Absolute Eosinophil Count 0.26 k/cumm (0.0-0.7); Absolute Lymphocyte Count 1.23 k/cumm (1.2-3.4); Absolute Monocyte Count 0.58 k/cumm (0.11-0.7); Absolute Neutrophil Count 6.92 k/cumm (1.2-6.7); Basophils % 0.3; Eosinophils % 2.9; HCT 38.1 % (40.0-50.0); HGB 11.8 g/dL (13.5-17.5); Immature Grans % 0.3; Lymphocytes % 13.6; Mean Corpuscular Hemoglobin 26.5 pg (27.0-33.0); Mean Corpuscular Volume 85.6 fL (80-95); Mean Platelet Volume 9.4 fL (8.0-11.0); Monocytes % 6.4; Neutrophils % 76.5; Platelet Count 338 x1000/uL (130-400); RBC 4.45 m/cumm (4.50-6.00); RBC Distribution Width 16.6 % (11.8-14.1); White Blood Cell Count 9.05 k/cumm (4.4-10.8)
[2019-03-20 10:38] LABS: ALT 22 U/L (16-63); AST 19 U/L (15-37); Albumin 3.3 g/dL (3.4-5.0); Alkaline Phosphatase 84 U/L (46-116); BUN 16 mg/dL (7-18); Bilirubin, Total 0.5 mg/dL (0.2-1.0); CREATININE 1.23 mg/dL (0.70-1.30); Calcium 9.1 mg/dL (8.5-10.1); Chloride 102 mmol/L (98-107); Estimated GFR 58.69 (mL/min/1.73m2); Glucose 120 mg/dL (70-100); Potassium 4.8 mmol/L (3.5-5.1); Sodium 137 mmol/L (136-145); Total Protein 7.9 g/dL (6.4-8.2)
[2019-03-20] MEDS: Heparin 500 UNITS/5 ML SYRINGE IV (10:45)
[2019-03-20] MEDS: Normal Saline Flush 10 ML SYR IVP (10:45)
== END 2019-04-17 23:59 | disposition home or self-care (01) ==
LOC: INF 04:01
PROVIDERS: Visit Provider Internal Medicine Hematology & Oncology
DX: C34.91 Malignant neoplasm of unspecified part of right bronchus or lung (principal); Z45.2 Encounter for adjustment and management of vascular access device
CPT/HCPCS: 36415; 36591; 80053; 96523; 85025

== ENCOUNTER 2019-06-23 01:23 | Outpatient (CLI) | payer OTHER, SELFPAY ==
[2019-06-23] MEDS: Omnipaque 350 MG/ML 100 ML BTL IV (15:35)
--- NOTE | 2019-06-23 15:41 | DI.CT_ITS ---
EXAM: CT CHEST WO/W CLINICAL HISTORY: [place] AUTH #[id number], LUNG ADENOCARCINOMA, RT C34.91 TECHNIQUE: Pre and post IV contrast. COMPARISON: XR CHEST 2V PA LATERAL from 07/18/2018 CT CHEST W from 11/19/2018 FINDINGS: There has been interval increase in size of the previously noted right pleural effusion. There has be en no significant change in right-sided volume loss. There are now mass-like densities along the pleu ra in the upper, mid and lower right lung which were not seen on the previous exam. There is some sof t tissue density around the right hilum which appears increased when compared with the previous exam. No adenopathy is seen. There is no pericardial effusion or left pleural effusion. A port is again no jaguar over the right pectoral muscle. There are stable masses in the right adrenal gland. The left adre nal gland is unremarkable. The pancreas, spleen and upper portions of the kidneys are unremarkable. T here is a stable tiny low density lesion in the posterior right lobe of the liver, likely a cyst. No destructive lesions are seen in the spine or ribs. IMPRESSION: Interval increase in size of right pleural effusion. Interval increase in soft tissue density around the right hilum as well as new pleural based masses.
== END 2019-06-23 01:43 ==
PROVIDERS: Visit Provider Internal Medicine Hematology & Oncology
DX: C34.91 Malignant neoplasm of unspecified part of right bronchus or lung (principal); J90 Pleural effusion, not elsewhere classified; R91.8 Other nonspecific abnormal finding of lung field
CPT/HCPCS: 71270; J3490

== ENCOUNTER 2019-06-23 14:32 | Outpatient (RCR) | payer OTHER, SELFPAY ==
[2019-06-23 15:02] LABS: Abs Immature Grans 0.05 k/cumm (0.0-0.09); Absolute Basophil Count 0.03 k/cumm (0.0-0.2); Absolute Eosinophil Count 0.14 k/cumm (0.0-0.7); Basophils % 0.2; Eosinophils % 1.1; HCT 39.7 % (40.0-50.0); HGB 12.5 g/dL (13.5-17.5); Immature Grans % 0.4 %; Lymphocytes % 12.9; Mean Corp. HGB Concentration 31.5 g/dL (32.0-36.0); Mean Corpuscular Hemoglobin 25.5 pg (27.0-33.0); Mean Platelet Volume 8.9 fL (8.0-11.0); Neutrophils % 79.4; Platelet Count 376 x1000/uL (130-400); RBC Distribution Width 17.4 % (11.8-14.1); White Blood Cell Count 12.59 k/cumm (4.4-10.8)
[2019-06-23 15:03] LABS: Absolute Lymphocyte Count 1.62 k/cumm (1.2-3.4); Absolute Monocyte Count 0.76 k/cumm (0.11-0.7)
[2019-06-23] MEDS: Normal Saline Flush 10 ML SYR 20 ML IVP (15:06)
[2019-06-23 15:27] LABS: ALT 16 U/L (16-63); AST 10 U/L (15-37); Albumin 3.2 g/dL (3.4-5.0); Alkaline Phosphatase 91 U/L (46-116); Anion Gap 14.1 mmol/L (3-11); BUN 30 mg/dL (7-18); Bilirubin, Total 0.3 mg/dL (0.2-1.0); CO2 22.9 mmol/L (21.0-32.0); CREATININE 1.52 mg/dL (0.70-1.30); Calcium 8.6 mg/dL (8.5-10.1); Chloride 99 mmol/L (98-107); Estimated GFR 45.97 (mL/min/1.73m2); Glucose 116 mg/dL (74-106); Potassium 3.7 mmol/L (3.5-5.1); Sodium 136 mmol/L (136-145); TSH 2.38 uIU/mL (0.36-3.74); Total Protein 8.2 g/dL (6.4-8.2)
== END 2019-07-18 23:59 | disposition home or self-care (01) ==
LOC: INF 14:32
PROVIDERS: Visit Provider Internal Medicine Hematology & Oncology
DX: C34.91 Malignant neoplasm of unspecified part of right bronchus or lung (principal)
CPT/HCPCS: 36415; 80053; 84436; 84443; 85025

== ENCOUNTER 2019-11-05 21:14 | Outpatient (REF) | payer OTHER, SELFPAY ==
[2019-11-05 18:29] LABS: BUN 24 mg/dL (7-18); CREATININE 1.49 mg/dL (0.70-1.30); Vancomycin, Trough 13.4 ug/mL (10.0-20.0)
== END 2019-11-05 21:34 ==
LOC: LBN 21:14
PROVIDERS: Visit Provider Internal Medicine
DX: Z45.2 Encounter for adjustment and management of vascular access device (principal); C34.91 Malignant neoplasm of unspecified part of right bronchus or lung; Z79.2 Long term (current) use of antibiotics
CPT/HCPCS: 84520; 80202; 82565

== ENCOUNTER → 2021-12-06 00:21 | Outpatient (CLI) | payer OTHER, SELFPAY | PROVIDERS: Visit Provider Internal Medicine Hematology & Oncology ==

== ENCOUNTER 2021-12-06 01:01 | Outpatient (CLI) | payer OTHER, SELFPAY | END 2021-12-06 01:02 | disposition home or self-care (01) | LOC: LBO 01:02 | PROVIDERS: Visit Provider Internal Medicine Hematology & Oncology ==

== ENCOUNTER 2022-02-09 02:35 | Outpatient (RCR) | payer MEDICARE, SELFPAY ==
--- OUTSIDE RECORDS SUMMARY | 2022-01-19 07:35 | XMS_ITS | Encounter Summary ---
:1950 Author Organization [facility] [place] [address] Care Team Providers Name Role Phone Farzaneh Winkler APRN Primary Care Provider Encounter Details Date Type Department Care Team Description 08/05/2021 Telephone Neurosurgery at [facility] Otf Lucas PA [facility] [place] [address] NEUROSURGERY [phone] [place], [place] [address] (Wo rk) Social History Tobacco Use Types Packs/Day Years Used Date Former Smoker Cigarettes 2 1969 - 2015 Smokeless Tobacco: Former User Chew Q uit: 1975 Comments: 2016 quit Alcohol Use Standard Drinks/Week Comments No 0 (1 standard drink = 0.6 oz pure usd to drink heavily ( 12 pck/day) alcohol) quit 2015 Alcohol Habits Answer Date Recorded How often do you have a drink Not asked containing alcohol? How many drinks containing alcohol do Not asked you have on a typical day when you are drinking? How often do you have six or more Not asked drinks on one occasion? Comment: usd to drink heavily ( 12 pck/day) 07/02 quit 2016 Sex Assigned at Date Recorded Not on file documented as of this encounter Miscellaneous Notes Telephone Encounter - Isela Cameron - 10/21/2021 3:57 PM EDT Called pt he has not started PT as of 10/21 he just saw his new PCP and will call us when ready to f/uwith DPS provided NS # to call back. 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 [address] 01/19/2022 Infusion Hematology and Oncology Canc eled (F-ARIA CANCEL) 01/25/2022 Hospital Gastroenterology Jose Clark MD [facility] [place] [address] 01/25/2022 Surgery Gastroenterology Jose Clark UPPE R GI R, MD ENDOSCOPY [facility] [place] [address] 01/26/2022 Office Visit Hematology and Oncology Fabian Cameron MD [facility] DR HEMATOLOGY/[place] [address] Loan Burton APRN [facility] HEMATOLOGY/[place] [address] 01/26/2022 Infusion Hematology and Oncology 02/02/2022 Office Visit Hematology and Oncology Fabian Cameron MD [facility] HEMATOLOGY/[place] [address] 02/02/2022 Infusion Hematology and Oncology 02/22/2022 Telephone Hematology and Oncology Siena Lloyd RD [facility] DRIVE HEMATOLOGY [place] [address] Scheduled Procedures Name Priority Associated Diagnoses Date/Time EGD, UPPER GI ENDOSCOPY EGD with stent vs 2021 12:00 PM EDT cryotherapy. documented as of this encounter Visit Diagnoses Not on filedocumented in this encounter Care Teams Reversal Print Inspector Relationship Specialty Start Date End Date Farzaneh Winkler APRN PCP - General General Internal Medicine 06/05/[address] [place] [id number] documented as of this encounter
--- OUTSIDE RECORDS SUMMARY | 2022-01-19 07:35 | XMS_ITS | Encounter Summary ---
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 [address] Referral ID Status Reason Start Date Expiration Date Visits V isits Requested Authorized [id number] Closed Specialty 12/29/2021 07/01/2023 1 1 Service Requested Encounter Details Date Type Department Care Team Description 01/17/2022 Hospital Encounter Radiology at [facility] Fabian Cameron, Pre-op testing; [facility] Malignant neoplasm of lung, unspecified laterality, unspecified part of lung; Drive [facility] Malignant neoplasm of lower third of esophagus; [facility] DR Liver metastases [phone] HEMATOLOGY/ONCOL [phone] [place] [address] Social History Tobacco Use Types Packs/Day Years Used Date Former Smoker Cigarettes 2 1969 - 2015 Smokeless Tobacco: Former User Chew Q uit: 1975 Comments: 2016 quit Alcohol Use Standard Drinks/Week Comments No 0 (1 standard drink = 0.6 oz pure usd to drink heavily ( 12 pck/day) alcohol) quit 2016 Alcohol Habits Answer Date Recorded How often do you have a drink Not asked containing alcohol? How many drinks containing alcohol do Not asked you have on a typical day when you are drinking? How often do you have six or more Not asked drinks on one occasion? Comment: usd to drink heavily ( 12 pck/day) 07/02 quit 2015 Sex Assigned at Date Recorded Not on file documented as of this encounter Last Filed Vital Signs Vital Sign Reading Time Taken Comments Blood Pressure 128/66 01/17/2022 3:00 PM EDT Pulse 97 01/17/2022 2:40 PM EDT Temperature 36.5 ??C (97.7 ??F) 01/17/2022 2:45 PM EDT Respiratory Rate 18 01/17/2022 2:45 PM EDT Oxygen Saturation 94% 01/17/2022 3:12 PM EDT Inhaled Oxygen Concentration - - Weight - - Height - - Body Mass Index - - documented in this encounter Discharge Instructions Discharge InstructionsEnoch Mckeon RN - 01/17/2022 12:41 PM EDT Images from the original note were not included. [facility] Department of Vascular and Interventional Radiology Discharge Instructions for your Chest Port You have received a ???Power Port?? , which provides access for infusions and blood draws. What makes this a ???Power Port?? is the unique ability to ???power inject?? contrast (intravenous dye) through the port when getting a CT scan, which produces superior images (pictures). Patients who don???thave these special ports need to have an IV started if they need dye injected for their CT scan. Your port is printed with the letters ???CT?? which can be detected by x- ray to identify it as a ???Power Port?? . You will be provided with an ID card stating the huc ob and type of port you have. Please carry this with you in a safe place. Bandage: There is a sterile dressing over the port site consisting of small gauze with a clear dressing (Tegaderm or [id number] ). This dressing should be left in place for 48 hours. If the clear dressing becomes loose you should place tape over the edges to secure it in place. Note: If you have steri-strips beneath your dressing, simply allow them to fall off. Do not peel them off. There may be Kahite-monson (skin glue) also, allow this to flake off. Pain: Apply ice bag to site (s) at 30 minute intervals (30 minutes on and 30 minutes off) for 24 hours?? . May use as needed for pain and/or bruising after 24 hours. Bathing: Do not take a shower until 48 hours after your port is placed; after this time you may shower with the dressing in place, then remove it and pat your skin dry. After 48 hours, we recommend that you cover the area with THE AQUA GUARD PROVIDED for 1 week while showering, facing away from the shower stream. You may use a bandaid to cover the site after the 48 hours are up if there is any drainage. No tub baths, whirlpools or swimming for one week following port placement. Flushing the mediport: If your port has not been used, it must be flushed every 30 days. What to expect when your port is accessed: 1. You may feel tenderness the first few times it is accessed but generally this subsides over time.Ask your healthcare provider to use a local anesthetic on the site if discomfort is a problem for you. You may ask for a prescription for a topical cream (EMLA) from your clinician; you may apply at home prior to your appointments, to help numb the skin over your port. 2. The clinician should be wearing sterile gloves and a mask during the access procedure. Anyone in the room with you should also have a mask on. 3. The skin over and 2 inches around the port should be cleaned with a disinfectant 4. Tell the clinician if you would like the skin numbed (lidocaine) before the access needle is placed. 5. Unless you are unable to take heparin (blood thinner), the port should be injected with a heparinsolution before deaccess (at end of each treatment or blood draw). When to call your healthcare provider: If you notice bleeding from the puncture site in your neck, or from the port incision on your chest,you should apply firm pressure over the site for 10-15 minutes, keeping the site covered. Call if you are still bleeding after 10-15 minutes. If you develop pain, redness, drainage or swelling at or around the port site, or the puncture site in the neck If you develop fever (elevation of more than 2 degrees or greater than 101F) and/or shaking chills When to call the Interventional Radiology Department: Please call with any questions or concerns. Ifit is during regular office hours, please call [phone]. If it is after regular office hours, oron weekends or holidays, please call [phone] and ask to speak to the Visual Manager on callfor Interventional Radiology. You have received medication during your procedure to help lessen anxiety and keep you comfortable. These medications affect judgement and reaction time. We recommend that you do not drive, operate equipment, sign any important documents, or smoke unattended for 24 hours following your procedure. Because of the sedation, be careful on stairs, as you may be unsteady on your feet. You may resume your regular diet as tolerated. IV site -- slight redness, or tenderness is normal, you can use a warm compress. If tenderness and redness increases or foul drainage occurs, please contact your M. D. Revised 04/03/19 [facility] Vascular and Interventional Radiology Discharge Instructions for your Chest Port Removal Activity: Relax for the next 24 hours Diet: Drink plenty of fluids. Resume your regular diet Bandage: There is a sterile dressing consisting of small gauze with a clear dressing (Tegaderm or [id number]). This dressing should be left in place for 48 hours. If the clear dressing becomes loose you should place tape over the edges to secure it in place. No tub baths, swimming or whirlpools for 1 week. No showering for 48 hours. Note: If you have steri-strips beneath your dressing, simply allow them to fall off. Do not peel them off. There may be Kahite-monson (skin glue) also, allow this to flake off. Do not pick this off. Bathing: Do not take a shower until 48 hours after your port is removed; after this time you may shower with the dressing in place, then remove it and pat your skin dry. After 48 hours, we recommend that you cover the area with THE AQUA GUARD PROVIDED for 1 week while showering, facing away from the shower stream. You may use a bandaid to cover the site after the 48 hours are up if there is any drainage. No tub baths, whirlpools or swimming for one week following port removal. Pain: Apply ice bag to site (s) at 30 minute intervals (30 minutes on and 30 minutes off) for 24 hours?? . May use as needed for pain and/or bruising after 24 hours. When to call your healthcare provider: If you notice bleeding from the incision on your chest, you should lie flat and apply firm pressure over the site for 10-15 minutes, keeping the site covered and call your doctor. If you are still bleeding after 10-15 minutes, reapply pressure, and have someone drive you to the nearest Emergency Department, or call 911. If you develop pain, redness, drainage or swelling at or around chest incision site. If you develop a fever equal to or greater than 101 degrees Fahrenheit. When to call the Interventional Radiology Department: Please call with any questions or concerns. Ifit is during regular office hours, please call [phone]. If it is after regular office hours, oron weekends or holidays, please call [phone] and ask to speak to the Visual Manager on callfor Interventional Radiology. You have received medication during your procedure to help lessen anxiety and keep you comfortable.These medications affect judgement and reaction time. We recommend that you do not drive, operate equipment, sign any important documents, or smoke unattended for 24 hours following your procedure. Because of the sedation, be careful on stairs, as you may be unsteady on your feet. You may resume your regular diet as tolerated. IV site -- slight redness, or tenderness is normal, you can use a warm compress. If tenderness and redness increases or foul drainage occurs, please contact your M. D. Revised 04/03/19 documented in this encounter Medications at Time of Discharge Medication Sig Dispensed Refills Start Date End Date famotidine (Pepcid) 20 mg Take 10 mg by mouth 2 0 Tablet times daily. sertraline (ZOLOFT) 100 Daily. 0 mg Tablet diclofenac sodium (Diclo Apply 1 Application 0 Gel) 1 % Kit topically as needed. sertraline (Zoloft) 50 mg Take 150 mg by mouth 0 Tablet daily. senna (Senokot) 8.6 mg Take 2 tablets by 60 tablet 11 2019 Tablet mouth every evening. amLODIPine (Norvasc) 10 Take 10 mg by mouth 0 mg Tablet daily. budesonide-formoteroL Inhale 2 puffs twice a 0 (Symbicort) 160-4.5 day by inhalation mcg/actuation HFA Aerosol route. Inhaler fluticasone/vilanterol Inhale 1 Dose into the 0 (BREO ELLIPTA INHL) lungs daily. cholecalciferol, Vitamin Take 2,000 Units by 0 D3, 2,000 unit Tablet mouth daily. loperamide (Imodium A-D) Take 2 mg by mouth 4 0 2 mg Capsule times daily as needed for Diarrhea. losartan (COZAAR) 25 mg Take 25 mg by mouth 0 Tablet daily. chlorthalidone (HYGROTEN) Take 25 mg by mouth 0 25 mg Tablet daily. ALBUTEROL INHL Inhale into the lungs 0 every 4 hours as needed. triamcinolone (KENALOG) Apply topically 2 0 0.1 % Cream times daily as needed. documented as of this encounter Progress Notes Janet Swanson RN - 01/17/2022 11:59 PM EDT Interventional and Vascular Radiology Post-Procedure Call Name: Lucas Meek Age: 71 y.o. Sex: Male Date of : 1950 Telephone Number: [phone] (home) Telephone Information: PCP Farzaneh Winkler APRN [phone] Date/Time of call: January 18, 2022/8:16 AM Procedure: Mediport Removal/Placement Procedural Provider: [place] Contact with patient or if not, with whom? Yes Are you having pain related to your procedure now? [X] Yes Are you having any swelling or bleeding from the site? No Are you having any other problems related to your procedure? No Did you understand the discharge instructions given and do you have any questions? Yes and no Do you have any comments about your Nurse or Provider or the care you received? [X] No Comments (if applicable): Odessa Mcgovern RN - 01/17/2022 1:19 PM EDT [facility]GIO NURSING DATABASE Name: LUCAS MEEK Date of : 1950 AGE: 71 y.o. Address: [address] [address] (home) Mobile: No relevant phone numbers on file. Referring Provider: Fabian Cameron REASON FOR VISIT: Order Questions Answers Where will study be performed? [facility] Radiology [120] Is the patient on anticoagulant / antiplatelet therapy ? No Reason for exam and clinical history: esophageal cancer, needs new port. old non-functioning port should be removed Planned procedure: Chest Port Revision (Removal and New Placement) Labs to be performed day of procedure: PLT; Coags Sedation: Moderate (Conscious sedation) Prophylactic antibiotic : Ancef Contrast: No contrast Additional medications for procedure: Lidocaine Planned access site: Right IJ Position: Supine Consent: Pending Medications to discontinue (and days held): None Case Urgency:: G- Other (non E or F elective cases) Allergies Allergen Reactions ??? Lisinopril Angioedema Lips got swollen Other reaction(s): Lip swelling Pertinent PMH: Patient Active Problem List Diagnosis Code ??? 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 Benign essential hypertension I10 ??? Chronic obstructive lung disease J44.9 ??? Morbid obesity E66.01 ??? Primary malignant neoplasm of lung C34.90 ??? Pain in joint M25.50 ??? Low back pain M54.50 ??? Lung cancer C34.90 ??? Hx of pleural effusion Z87.09 Date/Procedure Meds Given/Comments 01/17/22 Mediport Removal; Mediport Placement Versed 2mg IV; Fentanyl 100mcg IV, Ancef 2g IV 1313 to procedure room 1 via stretcher. Onto table supine. All monitors, O2, safety strap in place. Meds per protocol. Laboratory Results: Lab Results Component Value Date CREATININE 1.31 11/02/2019 Lab Results Component Value Date K 4.1 11/02/2019 Lab Results Component Value Date PLATELET 405 (H) 11/01/2019 documented in this encounter H&P Notes Taz Mahoney MD - 01/17/2022 12:27 PM EDT INTERVENTIONAL RADIOLOGY FOCUSED H&P: Procedure: Port removal and Port implant The patient's history and physical exam have been reviewed and completed. There has been no intervalchange from that of the pre-operative history and physical exam done within the last 30 days. Physical Exam: Cardiovascular: Regular, Normal Pulmonary: Breath sounds clear to auscultation The planned procedure (and sedation plan if appropriate) , its benefits and risks, and alternatives were discussed with the patient. The patient consented to the procedure. PRE-SEDATION ASSESSMENT: Sedation Plan: moderate (conscious sedation) ASA: 3: Patient with severe systemic disease Mallampati: II: tonsillar pillars are blocked by the tongue Taz Mahoney MD Interventional Radiology PGY4 01/17/22 Source Note - Otf Cox, - 12/31/2021 11:36 AM EDT Images from the original note were not included. INTERVENTIONAL RADIOLOGY FOCUSED H&P and PRE-PROCEDURE NOTE: PCP: Farzaneh Winkler APRN Referring Provider: Kaya Cameron Planned Procedure: Planned procedure: Chest Port Revision (Removal and New Placement) Procedure Indication: Esophageal Carcinoma with Hepatic Metastases. Nonfunctional previously placed chest port. Need for port exchange / revision. Need for durable, long-term venous access for chemotherapy. Procedure Request: Procedure request received through the Interventional Radiology eDH order queue. Presenting Diagnosis/ Complaint: Lucas Meek is a 71 y.o. male presenting to IR for chest port removal and new placement (chest port revision). Past medical history is significant for Lung Carcinoma diagnosed May 2017, now with new diagnosis of metastatic esophageal carcinoma. A Chest Port was placed by an outside institution ~early 2017. Now with inability to flush or aspirate port. Request for port revision given new diagnosis of metastatic esophageal cancer with plan for systemic therapy. On review of prior CT examination port catheter tip is retracted to the in internal jugular vein; internal jugular vein is also stenotic at the venotomy site. IR History: None at [facility]. Antiplatelets: None. Anticoagulants: None. Recent Laboratories: ??? None in our system nor in scanned documents. ??? Getting Laboratories Before Procedure: Yes - Platelet Count and Coagulation Panel. Allergies: None pertinent. Past Medical/Surgical History: Patient Active Problem List Diagnosis Code ??? 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 Benign essential hypertension I10 ??? Chronic obstructive lung disease J44.9 ??? Morbid obesity E66.01 ??? Primary malignant neoplasm of lung C34.90 ??? Pain in joint M25.50 ??? Low back pain M54.50 ??? Lung cancer C34.90 ??? Hx of pleural effusion Z87.09 Past Medical History: Diagnosis Date ??? Adenocarcinoma, lung, right ??? COPD (chronic obstructive pulmonary disease) ??? DJD (degenerative joint disease) ??? HTN (hypertension), benign ??? PAC (premature atrial contraction) Past Surgical History: Procedure Laterality Date ??? LUMBAR DISC SURGERY ??? PRO BRONCHOSCOPY, DIAGNOSTIC N/A 09/05/2019 BRONCHOSCOPY, DIAGNOSTIC (WRVU 2.78) performed by Stan Bernal MD at [facility] MAIN OR ? ? PRO INJECTION ANES AGENT &/ STEROID INTERCOSTAL NERVE EA ADDL LEVEL Right 09/05/2019 NERVE BLOCK, INTERCOSTAL NERVE, MULTIPLE (WRVU 1.68) performed by Stan Bernal MD at [facility] OR ??? PRO INSERTION OF INDWELLING TUNNELED PLEURAL CATHETER Right 09/05/2019 INSERTION INDWELLING PLEURAL CATHETER W\CUFF (WRVU 4.17) performed by Stan Bernal MD at [facility] OR ??? PRO THORACOSCOPY WITH BIOPSY OF PLEURA Right 09/05/2019 THORACOSCOPY; WITH BIOPSY(IES) OF PLEURA (WRVU 4.58) performed by Stan Bernal MD at [facility] OR ??? SUBTOTAL COLECTOMY 05/23/2016 ??? TOTAL KNEE ARTHROPLASTY Right ??? UMBILICAL HERNIA REPAIR Medications: Current Outpatient Medications on File Prior to Visit Medication Sig Dispense Refill ??? famotidine (Pepcid) 20 mg Tablet Take 10 mg by mouth 2 times daily. ??? sertraline (ZOLOFT) 100 mg Tablet Daily. ??? diclofenac sodium (Diclo Gel) 1 % Kit Apply 1 Application topically as needed. ??? sertraline (Zoloft) 50 mg Tablet Take 150 mg by mouth daily. ??? senna (Senokot) 8.6 mg Tablet Take 2 tablets by mouth every evening. (Patient not taking: Reported on 12/29/2021) 60 tablet 11 ??? amLODIPine (Norvasc) 10 mg Tablet Take 10 mg by mouth daily. ??? budesonide-formoteroL (Symbicort) 160-4.5 mcg/actuation HFA Aerosol Inhaler Inhale 2 puffs twicea day by inhalation route. ??? fluticasone/vilanterol (BREO ELLIPTA INHL) Inhale 1 Dose into the lungs daily. ??? cholecalciferol, Vitamin D3, 2,000 unit Tablet Take 2,000 Units by mouth daily. ??? loperamide (Imodium A-D) 2 mg Capsule Take 2 mg by mouth 4 times daily as needed for Diarrhea. ??? losartan (COZAAR) 25 mg Tablet Take 25 mg by mouth daily. ??? chlorthalidone (HYGROTEN) 25 mg Tablet Take 25 mg by mouth daily. ??? ALBUTEROL INHL Inhale into the lungs every 4 hours as needed. ??? triamcinolone (KENALOG) 0.1 % Cream Apply topically 2 times daily as needed. No current facility-administered medications on file prior to visit. Allergies: Lisinopril Social History and Habits: Social History Socioeconomic History ??? Marital status: Spouse name: Stephanie ??? Number of children: Not on file ??? Years of education: Not on file ??? Highest education level: Not on file Occupational History ??? Occupation: [employer] Comment: for 8 months ??? 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 Smoking status: Former Smoker Packs/day: 2.00 Types: Cigarettes Start date: 1969 Quit date: 2016 Years since quittin.5 ??? Smokeless tobacco: Former User Types: Chew Quit date: 1974 ??? Tobacco comment: 2015 quit Vaping Use ??? Vaping Use: Never used Substance and Sexual Activity ??? Alcohol use: No Comment: usd to drink heavily ( 12 pck/day) quit 2015 ??? Drug use: No ??? Sexual activity: Not on file Other Topics Concern ??? Not on file Social History Narrative ??? Not on file Social Determinants of Health Financial Resource Strain: Not on file Food Insecurity: Not on file Transportation Needs: Not on file Physical Activity: Not on file Housing Stability: Not on file Significant Family History: Family History Problem Relation Age of Onset ??? Cancer Brother throat Pertinent ROS: as per HPI Labs: Lab Results Component Value Date WBC 11.0 (H) 11/01/2019 HCT 37.1 (L) 11/01/2019 PLATELET 405 (H) 11/01/2019 BUN 21 (H) 11/02/2019 CREATININE 1.31 11/02/2019 ALKPHOS 84 08/26/2019 AST 12 08/26/2019 ALBUMIN 3.9 08/26/2019 BILITOT 0.4 08/26/2019 ALT 12 08/26/2019 PROT 8.0 08/26/2019 K 4.1 11/02/2019 Imaging: Physical Exam: Pending (to be performed in angio the day of procedure) ASA: Pending (to be assessed in angio the day of procedure) Mallampati Class: Pending (to be assessed in angio the day of procedure) Assessment: 71 y.o. male presenting to IR for chest port removal and new placement (chest port revision). Past medical history is significant for Lung Carcinoma diagnosed May 2017, now with new diagnosis of metastatic esophageal carcinoma. A Chest Port was placed by an outside institution ~early 2 018. Now with inability to flush or aspirate port. Request for port revision given new diagnosis of metastatic esophageal cancer with plan for systemic therapy. Reviewed with Attending: Dr. Cox Plan: Planned procedure: Chest Port Revision (Removal and New Placement) Labs to be performed day of procedure: PLT; Coags Sedation: Moderate (Conscious sedation) Prophylactic antibiotic : Ancef Contrast: No contrast Additional medications for procedure: Lidocaine Planned access site: Right IJ Position: Supine Consent: Pending Medications to discontinue (and days held): None Case Urgency:: G- Other (non E or F elective cases) 12/31/2021 documented in this encounter Plan of Treatment Upcoming Encounters Date Type Specialty Care Team Description 01/19/2022 Office Visit Hematology and Oncology Loan Burton, NOLAN [facility] HEMATOLOGY/[place] [address] 01/19/2022 Infusion Hematology and Oncology Canc eled (F-ARIA CANCEL) 01/25/2022 Hospital Gastroenterology Jose Clark MD [facility] [place] [address] 01/25/2022 Surgery Gastroenterology Jose Clark EGD, LOLA Ytaes MD ENDOSCOPY [facility] [place] [address] 01/26/2022 Office Visit Hematology and Oncology Fabian Cameron MD [facility] DR HEMATOLOGY/[place] [address] Loan Burton, INTERNAL SALES ENGINEER [facility] HEMATOLOGY/[place] [address] 01/26/2022 Infusion Hematology and Oncology 02/02/2022 Office Visit Hematology and Oncology Fabian Cameron MD [facility] DR HEMATOLOGY/[place] [address] 02/02/2022 Infusion Hematology and Oncology 02/22/2022 Telephone Hematology and Oncology Siena Lloyd, MUKUND [facility] [address] [address] Scheduled Procedures Name Priority Associated Diagnoses Date/Time EGD, UPPER GI ENDOSCOPY EGD with stent vs 2021 12:00 PM EDT cryotherapy. documented as of this encounter Procedures Procedure Name Priority Date/Time Associated Diagnosis Comme nts IR MEDIPORT Routine 01/17/2022 2:47 PM Malignant neoplasm Res ults for this PLACEMENT EDT of lower third of procedure are in esophagus the results Liver metastases section. IR MEDIPORT REMOVAL Routine 01/17/2022 2:47 PM Malignant neopl asm Results for this EDT of lower third of procedure are in esophagus the results Liver metastases section. documented in this encounter Results IR Mediport Removal (01/17/2022 2:47 PM EDT) Anatomical Region Laterality Modality X-Ray Angiography Specimen (Source) Anatomical Location Collection Method / Collectio n Time Received Time / Laterality Volume Impressions 01/18/2022 11:08 PM EDT : ??Successful right brachiocephalic recanalization and exchange of R chest single lumen port, tip at rig ht atrium. ?? Recommendation: Port ready for use. ? Attending: ??I, Dr. Blackwood was present t hroughout the procedure. I was present during the intraservice ti me as documented by the IR Nurse.?? Narrative 01/18/2022 11:08 PM EDT IR PROCEDURE NOTE: Tunneled R chest port-catheter exchange, catheter tip reposition ?? INDICATION: ?? esophageal cancer, liver metastases, needs durable central venous access for chemotherapy. ??Existi ng non-functioning port. ?? TECHNIQUE: After discussing risks (inclu ding infection, hemorrhage, port occlusion), and benefits, patient consen jaguar to the procedure. ??Due to the painful nature of the procedure, split d oses of fentanyl and versed were administered by the IR nurse during cont inuous monitoring of pulse, blood pressure and oxygen saturation. ? Maximal sterile barrier technique was ut ilized. After sterile preparation of the right neck and upper chest, 10 cc 1% lidocaine and 10 cc bipuvicaine SQ were administered for ane sthesia around the port. ??Spot image obtained. ??A 1 inch incision was made with a 15 blade, sutures to chest wall released and the port blunt d issected free. ??An 0.035 inch guidewire was advanced through the nikia ter, but would not pass beyond the tip. ??Catheter removed, and 7 Fr sheath advanced. ??4 Fr Berenstein catheter advanced, and through this, an .035 inch angled glidewire was able to pass into the SVC. ??Due to odd course, catheter advanced and contrast study confirmed. ? New port catheter cut to length and adva nced over .035 Nguyen wire, but would not pass level of end of original catheter. ??Catheter removed, and 8 Fr dilator advanced. ??8Fr peelaway morris th advanced, and new port catheter advanced into SVC. ??Catheter secured to port, and placed into pocket. ?? Sutured in with 2-0 prolene. ?? Ports as pirated and flushed with 5 cc 100 U/cc heparin. ??Pocket closed with 2-0 d eep and 4-0 running vicryl subcuticular suture, and indermil. ?? Sp ot image obtained. ??Patient tolerated the procedure well. ??There we re no immediate complications. ?? Contrast: 15 cc Visipaque administered I V. ?? EBL: ?? 5 cc ?? FINDINGS: ?? Existing catheter buckled a nd tip in central brachiocephalic vein. Stenotic at tip. Stenosis dilated, and new port catheter placed, with catheter tip in mid SVC. ?? Fabian Cameron MD IMG IR ORDERABLES IR Mediport Placement (01/17/2022 2:47 PM EDT) Anatomical Region Laterality Modality X-Ray Angiography Specimen (Source) Anatomical Location Collection Method / Collectio n Time Received Time / Laterality Volume Impressions 01/17/2022 4:59 PM EDT : ??Successful right brachiocephalic recanalization and exchange of R chest single lumen port, tip at rig ht atrium. Recommendation: Port ready for use. Attending: ??I, Dr. Blackwood was present t hroughout the procedure. I was present during the intraservice ti me as documented by the IR Nurse. ?? Narrative 01/17/2022 4:59 PM EDT IR PROCEDURE NOTE: Tunneled R chest port-catheter exchange, catheter tip reposition INDICATION: ?? esophageal cancer, liver metastases, needs durable central venous access for chemotherapy. ??Existi ng non-functioning port. TECHNIQUE: After discussing risks (inclu ding infection, hemorrhage, port occlusion), and benefits, patient consen jaguar to the procedure. ??Due to the painful nature of the procedure, split d oses of fentanyl and versed were administered by the IR nurse during cont inuous monitoring of pulse, blood pressure and oxygen saturation. ?? Maximal sterile barrier technique was ut ilized. After sterile preparation of the right neck and upper chest, 10 cc 1% lidocaine and 10 cc bipuvicaine SQ were administered for ane sthesia around the port. ??Spot image obtained. ??A 1 inch incision was made with a 15 blade, sutures to chest wall released and the port blunt d issected free. ??An 0.035 inch guidewire was advanced through the nikia ter, but would not pass beyond the tip. ??Catheter removed, and 7 Fr sheath advanced. ??4 Fr Berenstein catheter advanced, and through this, an .035 inch angled glidewire was able to pass into the SVC. ??Due to odd course, catheter advanced and contrast study confirmed. ?? New port catheter cut to length and adva nced over .035 Nguyen wire, but would not pass level of end of original catheter. ??Catheter removed, and 8 Fr dilator advanced. ??8Fr peelaway morris th advanced, and new port catheter advanced into SVC. ??Catheter secured to port, and placed into pocket. ?? Sutured in with 2-0 prolene. ?? Ports as pirated and flushed with 5 cc 100 U/cc heparin. ??Pocket closed with 2-0 d eep and 4-0 running vicryl subcuticular suture, and indermil. ?? Sp ot image obtained. ??Patient tolerated the procedure well. ??There we re no immediate complications. Contrast: 15 cc Visipaque administered I V. ?? EBL: ?? 5 cc FINDINGS: ?? Existing catheter buckled a nd tip in central brachiocephalic vein. Stenotic at tip. Stenosis dilated, and new port catheter placed, with catheter tip in mid SVC. Fabian Cameron MD IMG IR ORDERABLES (ABNORMAL) Prothrombin Time (01/17/2022 10:46 AM EDT) P athologist Signature PT 12.6 (H) 9.4 - 12.5 [facility] LABORATORY INR 1.1 [facility] LABORATORY Comment: An INR <2.0 indicates adequate procoagul ant activity for hemostasis in most patients without underlying bleeding dis orders, though the INR may not adequately reflect hemostatic capacity i n patients with liver disease and synthetic impairment. The recommended ta rget INR range for therapeutic anticoagulation is 2.0 ? 3.0 for most applications, though lower and higher ranges may be appropriate depending on c linical circumstances. Specimen Anatomical Collection Method Collection Time Receive d Time (Source) Location / / Volume Laterality Blood 01/17/2022 10:46 01/17/2022 AM EDT 10:54 AM EDT Resulting Agency Comment Spec In Lab Fabian Cameron MD HEMATOLOGY ORDERABLES Performing Organization Address City/State/[place] [address] Platelet count (01/17/2022 10:46 AM EDT) P athologist Signature Platelets 254 145 - 357 SRI ANGUIANO x10(3)/[facility] LABORATORY Plat Immature 1.2 0.0 - 7.4 SRI ANGUIANO % % [facility] LABORATORY Comment: Limitation of the Immature Platelet Frac tion (IPF)-May be less reliable when the platelet count is less than 88h283/u L due to statistical imprecision. The IPF value provides an assessment of the Bone Marrow production status. ??It is useful in differentiating Thrombocyto penia caused by platelet destruction/consumption versus decreased production. It also helps to determine the imminent release of platelets and ca n be therefore a helpful parameter in Chemotherapy and Bone marrow transplant patients. ELEVATED IPF value: ?? When the bone marrow is in a state of over production such as when increased destruction and consumption are the unde rlying issue. ?? When the marrow is recovering post ch emotherapy or bone marrow transplant. LOW to NORMAL IPF value: ?? When the bone marrow in not respondin g and is in a decreased state of production. References: [employer] The Clinical Value of the Immature Platelet Fraction (IPF) in Cell Recovery Document Number 10-1143 11/2010 [employer] The Role of the Imm ature Platelet Fraction (IPF) in the Differential Diagnosis of Thrombocytopen ia, Document [id number] V010/27/13 P010/29 Specimen Anatomical Collection Method Collection Time Receive d Time (Source) Location / / Volume Laterality Blood 01/17/2022 10:46 01/17/2022 AM EDT 10:54 AM EDT Resulting Agency Comment Spec In Lab Fabian Cameron MD HEMATOLOGY ORDERABLES Performing Organization Address City/State/[place] [address] documented in this encounter Visit Diagnoses Diagnosis Pre-op testing Preoperative examination, unspecified Malignant neoplasm of lung, unspecified laterality, unspecified part of lung 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 Redose every 8 hours if CrCl is less than 20., Angio/IR (Day of Procedure), Indication for (Active or Suspected): Prophylaxis fentaNYL (pf) (50 mcg/mL) multi-dose Given 01/17/2022 2:27 PM ED T 25 mcg injection 25-50 mcg 25-50 mcg, Intravenous, EVERY 3 MIN PRN, Starting on Sun01/17/22 at 1240, Until Sun01/17/22 at 1514, Pain, per unit protocol, - Start dose 50 mcg (reduce dose to 25 mcg if history of sedation sensitivity). - Titration dose 25-50 mcg IV, (based on patient response) every 3 minutes PRN, to maintain procedural pain less than 2 per pain Scale. Maximum dose: 50 mcg/dose, 250 mcg/hour For use in Interventional Radiology (IR) only for procedural sedation with direct provider supervision and verbal order., Angio/IR (Intra-Procedure), Routine Given 01/17/2022 1:42 PM EDT 50 mcg Given 01/17/2022 1:23 PM EDT 25 mcg lidocaine-EPINEPHrine (1% - 1:100,000) Given 01/17/2022 1:00 PM EDT 50 mLs injection 50 mL 50 mL, Intradermal, ONCE, 1 dose, On Sun01/17/22 at 1300, For use in Interventional Radiology (IR) only for Radiofrequency Ablation of Saphenous Vein procedure with direct provider supervision and verbal order., Angio/IR (Intra-Procedure), Routine midazolam (pf) (Versed) (1 mg/mL) multi-dose Given 07/2021 2:27 PM EDT 0.5 mg injection 0.5-1 mg 0.5-1 mg, Intravenous, EVERY 3 MIN PRN, Starting on Sun01/17/22 at 1240, Until Sun01/17/22 at 1514, Sleep, - Start dose; 1 mg (Reduce dose to 0.5 mg if history of sedation sensitivity). - Titration dose: 0.5 mg - 1 mg (based on patient response) every 3 minutes PRN to obtain RASS score of -3. Maximum dose: 1 mg per dose, 5 mg/hour. For use in Interventional Radiology (IR) only for procedural sedation with direct provider supervision and verbal order., Angio/IR (Intra-Procedure), Routine Given 01/17/2022 1:42 PM EDT 1 mg Given 01/17/2022 1:23 PM EDT 0.5 mg sodium chloride 0.9 % (flush) (BD PosiFlush Given 01/17/2022 1:0 0 PM EDT 5 mLs Normal Saline 0.9) flush 5 mL 5 mL, Intravenous, 2 TIMES DAILY, First dose on Sun01/17/22 at 1300, Until Discontinued, Routine documented in this encounter Care Teams Film Technician Relationship Specialty Start Date End Date Farzaneh Winkler, INTERNAL SALES ENGINEER PCP - General General Internal Medicine 06/05/[address] [place] [id number] documented as of this encounter
--- OUTSIDE RECORDS SUMMARY | 2022-01-19 07:35 | XMS_ITS | Encounter Summary ---
:1950 Author Organization [facility] [address] Care Team Providers Name Role Phone Farzaneh Winkler APRN Primary Care Provider Encounter Details Date Type Department Care Team Description 01/17/2022 Laboratory Appointment Lab 3L [facility] Pre-op testing; [facility] Malignant neoplasm of lung, unspecified laterality, [place] [id number] Social History Tobacco Use Types Packs/Day Years [...] on file documented as of this encounter Plan of Treatment Upcoming Encounters Date Type Specialty Care Team Description 01/19/2022 Office Visit Hematology and Oncology Loan Burton APRN [facility] HEMATOLOGY/[place] [address] 01/19/2022 Infusion Hematology and Oncology Canc eled (F-ARIA CANCEL) 01/25/2022 Hospital Gastroenterology Jose Clark MD [facility] [place] [address] 01/25/2022 Surgery Gastroenterology Jose Clark EGD, LOLA Yates MD ENDOSCOPY [facility] [place] [address] 01/26/2022 Office Visit Hematology and Oncology Fabian Cameron MD [facility] DR HEMATOLOGY/[place] [address] Loan Burton APRN [facility] HEMATOLOGY/[place] [address] 01/26/2022 Infusion Hematology and Oncology 02/02/2022 Office Visit Hematology and Oncology Fabian Cameron MD [facility] HEMATOLOGY/[place] [address] 02/02/2022 Infusion Hematology and Oncology 02/22/2022 Telephone Hematology and Oncology Siena Lloyd, RD [facility] [address]IVE H[place]OLOGY [place] [address] Scheduled Procedures Name Priority Associated Diagnoses Date/Time EGD, UPPER GI ENDOSCOPY EGD with stent vs 2021 12:00 PM EDT cryotherapy. documented as of this encounter Procedures Procedure Name Priority Date/Time Associated Diagnosis Comme nts HC VENIPUNCTURE STAT 01/17/2022 10:46 AM Pre-op testi ng Results for this EDT Malignant neoplasm of proced ure are in lung, unspecified the result s laterality, section. unspecified part of lung HC PLATELET COUNT STAT 01/17/2022 10:46 AM Pre-op carlos ting Results for this EDT Malignant neoplasm of proced ure are in lung, unspecified the result s laterality, section. unspecified part of lung documented in this encounter Results Platelet count (01/17/2022 10:46 AM EDT) athologist Signature Platelets 254 145 - 357 SRI ANGUIANO x10(3)/[facility] LABORATORY Plat Immature 1.2 0.0 - 7.4 [facility] % [facility] LABORATORY Comment: Limitation of the Immature Platelet Frac tion (IPF)-May be less reliable when the platelet count is less than 26x622/u L due to statistical imprecision. The IPF [...] in a decreased state of production. References: [employer] The Clinical Value of the Immature Platelet Fraction (IPF) in Cell Recovery Document Number [id number] 11/2010 [employer] The Role of the Imm ature [...] Organization Address City/State/ZIP [place] [address] (ABNORMAL) Prothrombin Time (01/17/2022 10:46 AM EDT) P athologist Signature PT 12.6 (H) 9.4 - 12.5 [facility] LABORATORY INR 1.1 [facility] LABORATORY Comment: An INR <2.0 indicates adequate [...] Organization Address City/State/ZIP [place] [address] documented in this encounter Visit Diagnoses Diagnosis Pre-op testing Preoperative examination, unspecified Malignant neoplasm of lung, unspecified laterality, unspecified part of lung documented in this encounter Care Teams Exchange Teller Relationship Specialty Start Date End Date Farzaneh Winkler, POURED WALL FOREMAN PCP - General General Internal Medicine 06/05/[address] [place] [id number] documented as of this encounter
--- OUTSIDE RECORDS SUMMARY | 2022-01-19 07:35 | XMS_ITS | Encounter Summary ---
:1950 Author Organization [facility] [place] [address] Care Team Providers Name Role Phone Farzaneh Winkler APRN Primary Care Provider Encounter Details Date Type Department Care Team Description 01/18/2022 Telephone Hematology/Oncology at S[address] Lloyd [address] HEMATOLOGY AND ONCOLOGY [place], [place] [phone] [place] [address] [phone] (Wo rk) Social History Tobacco Use Types [...] this encounter Miscellaneous Notes Telephone Encounter - Siena Lloyd RD - 01/18/2022 11:24 AM EDT [facility] Initial Assessment Patient Name: Alin Meek Diagnosis: Esophageal carcinoma with mets to liver, history of stage 3 NSCLC Assessment: HPI Patient Active Problem List Diagnosis Code ??? 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 Benign essential hypertension I10 ??? Chronic obstructive lung disease J44.9 ??? Morbid obesity E66.01 ??? Primary malignant neoplasm of lung C34.90 ??? Pain in joint M25.50 ??? Low back pain M54.50 ??? Lung cancer C34.90 ??? Hx of pleural effusion Z87.09 Estimated body mass index is 33.17 kg/m?? as calculated from the following: Height as of 12/29/21: 180.4 cm (5' 11.02). Weight as of 12/29/21: 108 kg (238 lb). Wt Readings from Last 3 Encounters: 12/29/21 108 kg (238 lb) 06/09/21 133.8 kg (295 lb) 12/02/19 (!) 137.1 kg (302 lb 4.8 oz) 57# weight loss in the past 7 months (19.3% body weight)--severe Medications: Pepcid, zoloft, senna, amlodipine, vitamin D3, imodium, cozaar, chlorthalidone Palliative chemotherapy is being considered by Dr. Cameron, pending final pathology and PET scan. Patient is scheduled for endoscopy with stent placement on 01/25/22. He is 5.5 years out from treatment for NSCLC. Labs 01/12: BG 98. No other recent labs Nutrition Screen 01/18/2022 12/29/2021 Reason for assessment Unintentional weight loss;Symptom management - Total MST Score - 1 Functional Status 01/18/2022 Appetite Reduced compared to usual intake Odynophagia Present Epigastric pain Present Patient reports that he feels full quickly when eating. And he also has pain in abdomen and esophagus while eating. He sticks to eating soft foods. Food History, Access and Intake 01/18/2022 Use of oral nutritional supplements Ensure Plus Spoke with Pierre over the phone today. He lives with his in [place]. Patient has had difficulty with early satiety and abdominal/esophageal pain when he eats, so has been eating soft foods. He eats mashed potato with gravy, pudding, jello, ramen, hamburger. He wishes he could eat some steak andis hopeful that eating well be easier after stent is placed next week. He drinks 2- 3 Ensure Plus perday (700-1050 kcal, 32-48 g protein), which is provided by the [place]. Nutrition Diagnosis 01/18/2022 Problems Swallowing difficulty Etiology (related to) Near obstructing esophageal tumor Signs and Symptoms Odynophagia;Weight loss 57# weight loss in the past 7 months (19.3% body weight)--severe Estimated needs based on 108 k kcals (25 kcal/kg) weight loss, BMI 33.17 108-140 g protein (1-1.3 g/kg) 1 ml/kcal Nutrition Intervention: * Encouraged continuing 2-3 Ensure Plus per day to provide 700-1050 kcal, 32-48 g protein. * Encouraged increasing frequency of meals/snacks/Ensure due to early satiety and weight loss. * Continue with soft foods, encouraging sources of protein (soft meats, cheese, eggs). Monitoring and Evaluation: Will follow up with Pierre in one month to re-evaluate. I have provided him with my card and contact information should he have any questions in the meantime. Thank you for this consult. Siena Lloyd RD documented in this encounter Plan of Treatment Upcoming Encounters Date Type Specialty Care Team Description 01/19/2022 Office Visit Hematology and Oncology Loan Burton APRN [facility] HEMATOLOGY/[place] [address] 01/19/2022 Infusion Hematology and Oncology Canc eled (F-ARIA CANCEL) 01/25/2022 Hospital Gastroenterology Jose Clark MD [facility] [place] [address] 01/25/2022 Surgery Gastroenterology Jose Clark UPPE R GI R, MD ENDOSCOPY [facility] [place] [address] 01/26/2022 Office Visit Hematology and Oncology Fabian Cameron MD [facility] DR HEMATOLOGY/[place] [address] Loan Burton APRN [facility] HEMATOLOGY/[place] [address] 01/26/2022 Infusion Hematology and Oncology 02/02/2022 Office Visit Hematology and Oncology Fabian Cameron MD [facility] HEMATOLOGY/[place] [address] 02/02/2022 Infusion Hematology and Oncology 02/22/2022 Telephone Hematology and Oncology Siena Lloyd RD [facility] DRIVE HEMATOLOGY [place] [address] Scheduled Procedures Name Priority Associated Diagnoses Date/Time EGD, UPPER GI ENDOSCOPY EGD with stent vs 2021 12:00 PM EDT cryotherapy. documented as of this encounter Visit Diagnoses Not on filedocumented in this encounter Care Teams Senior Cytotechnologist Relationship Specialty Start Date End Date Farzaneh Winkler APRN PCP - General General Internal Medicine 06/05/[address] [place] [phone] documented as of this encounter
--- OUTSIDE RECORDS SUMMARY | 2022-01-19 07:35 | XMS_ITS | Encounter Summary ---
:1950 Author Organization [facility] Address [address] [place] [address] Care Team Providers Name Role Phone Unavailable Primary Care Provider Unavailable Encounter Details Date Type Department Care Team Description 04/25/2013 Results Only [facility] Jet Urr[place] , Laboratory Services - [address] YAMILETH CUEVA [address] [place] [address] [place] [address] [phone] Social History Tobacco Use Types Packs/Day Years Used Date Never Assessed Sex Assigned at Date Recorded Not on file documented as of this encounter Plan of Treatment Not on filedocumented as of this encounter Procedures Procedure Name Priority Date/Time Associated Diagnosis Comme [facility] SURGICAL PATHOLOGY Routine 04/25/2013 9:38 EST Re sults for this procedure are i n the results section. documented in this encounter Results SURGICAL PATHOLOGY (04/25/2013 9:38 EST) Pathology Report: SURGICAL PATHOLOGY REPORT MARIELA ELIZONDO Reports generated via electronic interface contain natalie ginal data; LAB however they are lacking the format of the original re port. Caution should be taken when reading/interpreting unfo rmatted reports. Name: ? ALIN MEEK ? Accession #: ? [id number] ? : ? 1950 (Age: 62) ??M ? Collect Date: ? 04/25/2013 ? Location: ? [facility] ? Receive Date: ? 013 ? Provider: JET URRUTIA DO Copy to: BENJAMIN VELASQUEZ MD ? Final Pathologic Diagnosis: A. CECUM, POLYP, BIOPSY: - ??Tubular adenoma. ??See comment. B. COLON, TRANSVERSE, POLYP, BIOPSY: - ??Tubular adenoma. C. COLON, DESCENDING, POLYP, BIOPSY: - ??Tubular adenoma. Comment: ? Field Services Director sectio ns of this case were reviewed at the intradepartmental consultation conference. ?? Document reviewed and electronically signed by: BARBARA SOFIA MD Report ??Date: 04/29/2013 15:32 By the signature above, the attending physician certif ies that he/she has personally conducted a gross and/or microscopic examin ation of the described specimens and rendered or confirmed the above diagnosi s. Specimen(s) Received: A. ?Cecum polyp B. ? Transverse colon polyp C. ? Descending colon polyp Clinical History: Screening Gross Description: A. ?Received in formalin labelled with proper p atient identification (initials H, D) and 1. cecu m polyp is a single pink-boyd tissue fragment (0.8 x 0.6 x 0.3 cm). ??The excisional margin is inked black and the specimen is trisected. ??Entirely submitted in A1. B. ?Received in formalin labelled with proper p atient identification (initials H, D) and 2. transverse colon polyp is a s cali pink-boyd tissue fragment (0.4 x 0.2 x 0.2 cm). Submitted intact in B1. C. ?Received in formalin labelled with proper p atient identification (initials H, D) and 3. descending colon polyp is a s cali pink-boyd tissue fragment (0.5 x 0.3 x 0.2 cm). ??The excisional margin is inked black and the specimen is bisected. ??Entirely submitted in C1. Dr. Reyes 04/26/2013 12:33 PM End of Report Specimen Performing Organization Address City/State/ZIP Code Phon e Number [facility] [address] [place] [address] SERVICES [facility] [address] [place] [address] documented in this encounter Visit Diagnoses Not on filedocumented in this encounter
--- OUTSIDE RECORDS SUMMARY | 2022-01-19 07:35 | XMS_ITS | Encounter Summary ---
:1950 Author Organization [facility] [place] [address] Care Team Providers Name Role Phone Farzaneh Winkler APRN Primary Care Provider Encounter Details Date Type Department Care Team Description 12/05/2021 [facility] [address] [phone] Social History Tobacco Use Types Packs/Day Years [...] Visit Hematology and Oncology Loan Burton APRN [facility] HEMATOLOGY/[place] [address] 01/19/2022 Infusion Hematology and Oncology Canc eled (F-ARIA CANCEL) 01/25/2022 Hospital Gastroenterology oJse Clark MD [facility] [place] [address] 01/25/2022 Surgery Gastroenterology Jose Clark, LOLA Yates MD ENDOSCOPY [facility] [place] [address] 01/26/2022 Office Visit Hematology and Oncology Fabian Cameron MD [facility] DR HEMATOLOGY/[place] [address] Loan Burton APRN [facility] HEMATOLOGY/[place] [address] 01/26/2022 Infusion Hematology and Oncology 02/02/2022 Office Visit Hematology and Oncology Fabian Cameron MD [facility] DR HEMATOLOGY/[place] [address] 02/02/2022 Infusion Hematology and Oncology 02/22/2022 Telephone Hematology and Oncology Siena Lloyd, MUKUND [facility] [address] [place] [address] Scheduled Procedures Name Priority Associated Diagnoses Date/Time EGD, UPPER GI ENDOSCOPY EGD with stent vs 2021 12:00 PM EDT cryotherapy. documented as of this encounter Visit Diagnoses Not on filedocumented in this encounter Care Teams Certified Registered Nurse Practitioner Relationship Specialty Start Date End Date Farzaneh Winkler, HOSPITAL SECURITY OFFICER PCP - General General Internal Medicine 06/05/[address] [place] [id number] documented as of this encounter
--- OUTSIDE RECORDS SUMMARY | 2022-01-19 07:35 | XMS_ITS | Encounter Summary ---
:1950 Author Organization [facility] Address [address] [place] [address] Care Team Providers Name Role Phone Anca Monsivais MD Primary Care Provider Encounter Details Date Type Department Care Team Description 10/27/2019 Lab Requisition [facility] Outr Resulting Lab, Pathology & Laboratory Provider [facility] [address], [place] [address] Social History Tobacco Use Types Packs/Day Years Used Date Never Assessed Sex Assigned at Date Recorded Not on file documented as of this encounter Plan of Treatment Not on filedocumented as of this encounter Procedures Procedure Name Priority Date/Time Associated Diagnosis Comme nts COVID-19 TEST [facility] Today 10/27/2019 11:02 LAB PCR EDT COVID-19 TESTING Routine 10/27/2019 11:02 Results for this EDT procedure are i n the results section. documented in this encounter Results COVID-19 TEST [facility] LAB PCR (10/27/2019 11:02 EDT) Specimen Swab - Entire nasopharynx (body structur e) Performing Organization Address City/State/ZIP Code Phon e Number [facility] [address] [place] [address] SERVICES COVID-19 TESTING (10/27/2019 11:02 EDT) COVID-19 rt-PCR Negative Negative [facility] Result Comment: [facility] This test has not been FDA c leared or approved. This test has been authorized by FDA under an EUA for use by authorized laboratories. This test has been authorized only for detection of nucleic acid fro SERVICES m 2018-nCo, not for any oth er viruses or pathogens. This test is only authorized for the duration of the declaration that circumstances exist justifying the authorization of emergency use of in vitro d iagnostic tests for detectio n and/or diagnosis of 2019-nCoV under section 564(b)(1) of Act, 21 U.S.C ?? 360bbb-3(b) (1), unless the authorization is terminated or revoked sooner. Negative results do not prec lude 2019-nCoV infection and should not be used as the sole basis for treatment or other patient management decisions. Negative results must be combined with clinical observa tions, patient history, and epidemiological informatio n. Performed on the Celect Fusion instrument Performing Lab [facility] Lab [facility] SERVICES Specimen Swab - Entire nasopharynx (body structur e) Performing Organization Address City/State/ZIP Code Phon e Number [facility] [address] [place] [address] SERVICES documented in this encounter Visit Diagnoses Not on filedocumented in this encounter Care Teams [employer] Truck [employer] Relationship Specialty Start Date End Date Anca Monsivais MD PCP - General 04/30/[address] [place] [id number] documented as of this encounter
--- OUTSIDE RECORDS SUMMARY | 2022-01-19 07:35 | XMS_ITS | Clinical Summary ---
:1950 Author Organization [facility] [place] [address] Care Team Providers Name Role Phone Farzaneh Winkler APRN Primary Care Provider Allergies Active Allergy Reactions Severity Noted Date Comments Lisinopril Angioedema High 11/30/2016 Lips got swolle n Other reaction( s): Lip swelling Medications Medication Sig Dispensed Refills Start Date End Date Status losartan (COZAAR) 25 Take 25 mg by 0 Active mg Tablet mouth daily. chlorthalidone Take 25 mg by 0 A ctive (HYGROTEN) 25 mg mouth daily. Tablet ALBUTEROL INHL Inhale into the 0 Active lungs every 4 hours as needed. triamcinolone Apply topically 2 0 Active (KENALOG) 0.1 % Cream times daily as needed. loperamide (Imodium Take 2 mg by mouth 0 Active A-D) 2 mg Capsule 4 times daily as needed for Diarrhea. cholecalciferol, Take 2,000 Units 0 Active Vitamin D3, 2,000 unit by mouth daily. Tablet fluticasone/vilanterol Inhale 1 Dose into 0 Active (BREO ELLIPTA INHL) the lungs daily. amLODIPine (Norvasc) Take 10 mg by 0 Active 10 mg Tablet mouth daily. budesonide-formoteroL Inhale 2 puffs 0 08/04/2019 Active (Symbicort) 160-4.5 twice a day by mcg/actuation HFA inhalation route. Aerosol Inhaler senna (Senokot) 8.6 mg Take 2 tablets by 60 tablet 11 0 Active Tablet mouth every evening. Additional Information Patient not taking. Reported on 12/29/2021 diclofenac sodium (Diclo Gel) 1 % Apply 1 Application topically as 0 Active Kit needed. sertraline (Zoloft) 50 mg Tablet Take 150 mg by mouth daily. 0 Active sertraline (ZOLOFT) 100 mg Tablet Daily. 0 Active famotidine (Pepcid) 20 mg Tablet Take 10 mg by mouth 2 times daily. 0 Active Active Problems Problem Noted Date Hx of pleural effusion 10/27/2019 Lung cancer 08/26/2019 Pain in joint 05/23/2018 Low back pain 05/23/2018 Benign essential hypertension 04/11/2018 Overview: No comments entered for problem. Chronic obstructive lung disease 04/11/2018 Overview: No comments entered for problem. Morbid obesity 04/11/2018 Overview: No comments entered for problem. Primary malignant neoplasm of lung 04/11/2018 Overview: No comments entered for problem. Hypothyroidism due to drugs 08/21/2017 Primary lung adenocarcinoma, right 07/02/2017 Cancer Staging: Clinical: cT2, cN2, cM0 - Signed by Alden Ramos MD on 07/02/2017 Encounters Date Type Specialty Care Team Description 01/19/2022 Infusion Hematology and Oncology Canc eled (F-ARIA CANCEL) 01/18/2022 Telephone Hematology and Oncology Siena Lloyd, MUKUND 01/18/2022 Telephone Hematology and Oncology Siena Lloyd, MUKUND 01/17/2022 Hospital Encounter Fabian Kovacs, Pre-op testing; Malignant neopl asm of lung, unspecified laterality, unspecified part of lung; Malignant neopl asm of lower third of esophagus; Liver metastase s 01/17/2022 Laboratory Lab Pre-op testing; Appointment Malignant neopl asm of lung, unspecified laterality, unspecified part of lung 01/13/2022 Telephone Gastroenterology Arcelia Alexander 01/12/2022 Hospital Encounter Fabian Kovacs Arrived MD 01/12/2022 Hospital Encounter Fabian Kovacs, Maligntaisha nt neoplasm of lower third of esophagus; Liver metastase s 12/31/2021 Notes Only Radiology Otf Cox, 12/30/2021 Orders Only Hematology and Oncology Fabian Cameron, Pr imary lung adenocarcinoma, right; Malignant neopl asm of lower third of esophagus; Liver metastase s 12/29/2021 Office Visit Hematology and Oncology Fabian Cameron Pr imary lung adenocarcinoma, right; Malignant neoplasm of lower third of eso phagus; Loan Burton Liver metastase s D, RADIOCHEMICAL TECHNICIAN 12/06/2021 Telephone Hematology and Oncology Juliet Whitaker 12/05/2021 Telephone Hematology and Oncology Juliet Whitaker 11/29/2021 Telephone Hematology and Oncology Juliet Whitaker 11/25/2021 Telephone Hematology and Oncology Juliet Whitaker from Last 3 Months Immunizations Name Administration Dates Next Due Pneumococcal Polyvalent 23 05/28/2003 Family History Medical History Relation Comments Cancer Brother throat Relation Status Comments Brother Alive Mother Alive Social History Tobacco Use Types Packs/Day Years [...] Assigned at Date Recorded Not on file Last Filed Vital Signs Vital Sign Reading Time Taken Comments Blood Pressure 128/66 01/17/2022 3:00 PM EDT Pulse 97 01/17/2022 2:40 PM EDT Temperature 36.5 ??C (97.7 ??F) 01/17/2022 2:45 PM EDT Respiratory Rate 18 01/17/2022 2:45 PM EDT Oxygen Saturation 94% 01/17/2022 3:12 PM EDT Inhaled Oxygen Concentration - - Weight 108 kg (238 lb) 12/29/2021 9:02 AM EDT Height 180.4 cm (5' 11.02) 12/29/2021 9:02 AM EDT Body Mass Index 33.17 12/29/2021 9:02 AM EDT Plan of Treatment Upcoming Encounters Date Type Specialty Care Team Description 01/19/2022 Office Visit Hematology and Oncology Loan Burton APRN [facility] HEMATOLOGY/[place] [address] 01/19/2022 Infusion Hematology and Oncology Canc eled (F-ARIA CANCEL) 01/25/2022 Hospital Gastroenterology Jose Clark MD [facility] [place] [address] 01/25/2022 Surgery Gastroenterology Jose Clark UPPE R GI R, MD ENDOSCOPY [facility] [place] [address] 01/26/2022 Office Visit Hematology and Oncology Fabian Cameron MD [facility] HEMATOLOGY/[place] [address] Loan Burton APRN [facility] HEMATOLOGY/[place] [address] 01/26/2022 Infusion Hematology and Oncology 02/02/2022 Office Visit Hematology and Oncology Fabian Cameron MD [facility] HEMATOLOGY/[place] [address] 02/02/2022 Infusion Hematology and Oncology 02/22/2022 Telephone Hematology and Oncology Siena Lloyd RD [facility] DRIVE H[place]ATOLOGY [place] [address] Scheduled Procedures Name Priority Associated Diagnoses Date/Time EGD, UPPER GI ENDOSCOPY EGD with stent vs 2021 12:00 PM EDT cryotherapy. Health Maintenance Due Date Last Done Comments Covid-19 Vaccine (#1) 1956 Hepatitis C Screening 1969 Lipid Screening 1969 Tdap adult 1970 Tetanus vaccine 1970 Colonoscopy 1996 Zoster vaccine (1 of 2) 2001 Pneumoccocal Vaccine: 65+ (2 - 05/28/2004 05/28/2003 PCV) Advance Directive 2006 AAA Screen 2016 Influenza (Flu) vaccine (1 of 1 - 02/16/2022 Influenza standard series) Diabetes Screening (HgbA1C or 11/01/2022 11/02/2019, 2019, Glucose) 10/31/2019, Additional history exists Medical Devices Implanted Type Area Cloth Sponger Device Shelf Model / Identifier Expiration Serial / Date Lot Port Infusion 6fr Cath Power Lp Ct Plastic Dignity ([id number]) -01/17/2022 IMPLANTS Right: [employer] - 12/16/2023 [id number] / Implanted: Qty: 1 on 01/17/2022 by Fuentes Blackwood MD Chest MEDCOMP IN / Wall [id number] Procedures Procedure Name Priority Date/Time Associated Diagnosis Comme nts IR MEDIPORT REMOVAL Routine 01/17/2022 2:47 PM Malignant neopl asm Results for this EDT of lower third of procedure are in esophagus the results Liver metastases section. IR MEDIPORT PLACEMENT Routine 01/17/2022 2:47 PM Malignant john plasm Results for this EDT of lower third of procedure are in esophagus the results Liver metastases section. HC PLATELET COUNT STAT 01/17/2022 10:46 Pre-op testin g Results for this AM EDT Malignant neoplasm procedure are in of lung, unspecified the res ults laterality, section. unspecified part of lung HC VENIPUNCTURE STAT 01/17/2022 10:46 Pre-op testing Results for this AM EDT Malignant neoplasm procedure are in of lung, unspecified the res ults laterality, section. unspecified part of lung NM PET CT SKULL BASE Routine 01/12/2022 2:30 PM Malignant neop lasm Results for this TO MID-THIGH ([facility]) EDT of lower third of pro cedure are in esophagus the results Liver metastases section. POCT GLUCOSE Routine 01/12/2022 1:26 PM Results f or this EDT procedure are i n the results section. MRI/MRA SCAN 12/22/2021 12:00 Results for this AM EDT procedure are i n the results section. from Last 3 Months Results IR Mediport Placement (01/17/2022 2:47 PM EDT) [...] SVC. Fabian Cameron MD IMG IR ORDERABLES IR Mediport Removal (01/17/2022 2:47 PM EDT) [...] ?? Fabian Cameron MD IMG IR ORDERABLES (ABNORMAL) Prothrombin Time (01/17/2022 10:46 AM EDT) P athologist Signature PT 12.6 (H) 9.4 - 12.5 [facility] LABORATORY INR 1.1 [facility] LABORATORY Comment: An INR <2.0 indicates adequate procoagul ant activity for hemostasis in most patients without underlying bleeding dis orders, though the INR may not adequately reflect hemostatic capacity i n patients with liver disease and synthetic impairment. The recommended ta et INR range for therapeutic anticoagulation is 2.0 [...] Organization Address City/State/[place] [address] Platelet count (01/17/2022 10:46 AM EDT) P athologist Signature Platelets 254 145 - 357 [facility] x10(3)/[facility] LABORATORY Plat Immature 1.2 0.0 - 7.4 [facility] % % [facility] LABOR[facility] Comment: Limitation of the Immature Platelet Frac tion (IPF)-May be less reliable when the platelet count is less than 44j812/u L due to statistical imprecision. The IPF [...] in a decreased state of production. References: [employer] The Clinical Value of the Immature Platelet Fraction (IPF) in Cell Recovery Document Number 10-1143 11/2010 [employer] The Role of the Imm ature [...] Organization Address City/State/[place] [address] NM PET CT Skull Base to Mid-thigh (01/12/2022 2:30 PM EDT) Anatomical Region Laterality Modality Positron Emission To mography (PET) Specimen (Source) Anatomical Location Collection Method / Collectio n Time Received Time / Laterality Volume Impressions 01/13/2022 1:41 PM EDT 1. ??New, large FDG avid mass in the distal esophagus consistent with a primary esophageal malignancy. 2. ??Numerous FDG avid metastases throug hout the liver. 3. ??New left adrenal metastasis. 4. ??Osseous metastasis in the posterior right eighth rib. 5. ??New mildly FDG avid consolidative a nd nodular opacities in the right lung base consistent with an infectious/infla mmatory process, favored aspiration pneumonia/pneumonitis, in the setting of an esophageal mass and endoluminal debris in the mainstem bronchi. 6. ??Right chest wall port with catheter tip terminating in the right jugular vein above the brachiocephalic confluenc e. This is unchanged compared to remote PET/CT of 03/06/2020. I have personally reviewed the image(s) and the resident's interpretation and agree with the findings, Sherie Payton at 01/13/2022 1:41 PM Thank you for letting us participate in the care of this patient. ??If you are a health care provider and have any questi ons regarding this report, please contact the number below. ??For patients who have questions please contact the health auto care center manager that requested your imaging first. ? Narrative 01/13/2022 1:41 PM EDT EXAMINATION: NM PET CT STANDARD SKULL BASE TO MID-THIGH CLINICAL HISTORY: Colorectal cancer, ass ess treatment response; Gastrointestinal cancer, staging. 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 TECHNIQUE: Following IV injection of 18- unvsul-2-wsqmnbgjrcpu (FDG) a standard uptake of approximately 60 minutes, a no ncontrast CT scan followed by a PET scan were acquired from the base of the skull to mid thighs. The noncontrast CT was used for anatomic localization and photo n attenuation correction of the PET scan. Blood glucose level: 98 (mg/dL) FDG dose: 16.3 mCi COMPARISON: Chest CT 2021 and PET/CT 03/06/2020 FINDINGS: HEAD/NECK: Normal activity in all soft tissue regio ns of the neck and visualized lower head. No adenopathy. Unchanged lipoma of the right paraspinal musculature. CHEST: FDG avid mass in the distal esophagus me asuring approximately 5 cm in length. Again noted is mildly FDG avid consolida tion with traction bronchiectasis and associated volume loss in the right lung consistent with postradiation change. This has overall decreased FDG avidity c ompared to 2019 PET/CT. New mildly avid mixed nodular and consol idative opacities in the right lung base. Small focus of FDG avidity in the right hilum (axial image 94), favored to represent posttreatment inflammation. Trace bilateral non-FDG avid pleural eff usions. ?? Endoluminal debris in the bilateral main stem bronchi. Apical predominant centrilobular emphysema. Coronary artery and aortic calcifications. Trace pericardial effusion. Right chest wall p ort with catheter tip terminating in the right jugular vein above the brachioceph alic confluence unchanged compared to prior PET/CT. ABDOMEN/PELVIS: Numerous FDG avid hypodense lesions thro ughout the liver. FDG avid adenopathy in the gastrohepatic and periportal regions. New 1.7 cm FDG avid left adrenal nodule. Stable right adrenal nodules without sig nificant uptake above-referenced liver background, consistent with benign adeno mas. SKELETON/EXTREMITIES: FDG avid osseous lesion in the posterior right eighth rib without CT correlate (axial image 118).. Decreased marrow activity in the thoraci c spine consistent with postradiation change. Procedure Note Fabian Cruz MD - 01/13/2022Formatti ng of this note might be different from the original. EXAMINATION: NM PET CT STANDARD SKULL BA SE TO MID-THIGH CLINICAL HISTORY: Colorectal cancer, ass ess treatment response; Gastrointestinal cancer, staging. 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 TECHNIQUE: Following IV injection of 18- qmiust-1-aochabpmjaqp (FDG) a standard uptake of approximately 60 minutes, a no ncontrast CT scan followed by a PET scan were acquired from the base of the skull to mid thighs. The noncontrast CT was used for anatomic localization and photo n attenuation correction of the PET scan. Blood glucose level: 98 (mg/dL) FDG dose: 16.3 mCi COMPARISON: Chest CT 2021 and PET/CT 03/06/2020 FINDINGS: HEAD/NECK: Normal activity in all soft tissue regio ns of the neck and visualized lower head. No adenopathy. Unchanged lipoma of the right paraspinal musculature. CHEST: FDG avid mass in the distal esophagus me asuring approximately 5 cm in length. Again noted is mildly FDG avid consolida tion with traction bronchiectasis and associated volume loss in the right lung consistent with postradiation change. This has overall decreased FDG avidity c ompared to 2019 PET/CT. New mildly avid mixed nodular and consol idative opacities in the right lung base. Small focus of FDG avidity in the right hilum (axial image 94), favored to represent posttreatment inflammation. Trace bilateral non-FDG avid pleural eff usions. Endoluminal debris in the bilateral main stem bronchi. Apical predominant centrilobular emphysema. Coronary artery and aortic calcifications. Trace pericardial effusion. Right chest wall p ort with catheter tip terminating in the right jugular vein above the brachioceph alic confluence unchanged compared to prior PET/CT. ABDOMEN/PELVIS: Numerous FDG avid hypodense lesions thro ughout the liver. FDG avid adenopathy in the gastrohepatic and periportal regions. New 1.7 cm FDG avid left adrenal nodule. Stable right adrenal nodules without sig nificant uptake above-referenced liver background, consistent with benign adeno mas. SKELETON/EXTREMITIES: FDG avid osseous lesion in the posterior right eighth rib without CT correlate (axial image 118).. Decreased marrow activity in the thoraci c spine consistent with postradiation change. IMPRESSION 1. New, large FDG avid mass in the dista l esophagus consistent with a primary esophageal malignancy. 2. Numerous FDG avid metastases througho ut the liver. 3. New left adrenal metastasis. 4. Osseous metastasis in the posterior r ight eighth rib. 5. New mildly FDG avid consolidative and nodular opacities in the right lung base consistent with an infectious/infla mmatory process, favored aspiration pneumonia/pneumonitis, in the setting of an esophageal mass and endoluminal debris in the mainstem bronchi. 6. Right chest wall port with catheter t ip terminating in the right jugular vein above the brachiocephalic confluenc e. This is unchanged compared to remote PET/CT of 03/06/2020. I have personally reviewed the image(s) and the resident's interpretation and agree with the findings, Sherie Payton at 01/13/2022 1:41 PM Thank you for letting us participate in the care of this patient. If you are a health care provider and have any questi ons regarding this report, please contact the number below. For patients w ho have questions please contact the health auto care center manager that requested your imaging first. Electronically signed by: Fabian Cruz MD, [facility] ([phone]), at 01/13/2022 1:41 PM Fabian Cameron MD IMG PET ORDERABLES POCT Glucose (01/12/2022 1:26 PM EDT) P athologist Signature POC Glucose 98 65 - 199 [facility] mg/dL [facility] LABOR[facility] Comment: Supplemental ranges: <140 mg/dL before meals <180 mg/dL all other times of the day Specimen Anatomical Collection Method Collection Time Receive d Time (Source) Location / / Volume Laterality Blood 01/12/2022 1:26 PM 2 1:26 EDT PM EDT Fabian Cameron MD POINT OF CARE TEST ORDERABLE S Performing Organization Address City/State/[place] [address] SCAN DOC: MRI/MRA (12/22/2021 12:00 AM EDT) Narrative This result has an attachment that is no t available. Unknown MEDIA MGR SCAN EXT ORDR/RSLT from Last 3 Months Insurance Payer Benefit Plan / Subscriber ID Effective Dates Phone Addre ss Type Group VAC[employer] OPTUM [place] OPTUM [id number] 2019-Pres [phone] [address] [facility] [address] [place] [address] AAR MANAGED [employer] [facility] [id number] 2021-Miguel [phone] [address] [address] MEDICARE MANAGED t [address] [place], [place] [address] Advance Directives Latest Code Status on File Code Status Date Activated Date Inactivated Comments Attempt Cardiopulmonary Resuscitation - 01/17/2022 12:27 PM 01/19/20 22 4:38 AM Inpatient Code Status decision made by: Patient Full Code 10/27/2019 8:31 PM 11/03/2019 3:53 PM Does patient have capacity to make decision: Yes Full Code 09/05/2019 9:04 AM 09/05/2019 6:39 PM Does patient have capacity to make decision: Yes Care Teams Hand Deicer Element Winder Relationship Specialty Start Date End Date Farzaneh Winkler, RADIOCHEMICAL TECHNICIAN PCP - General General Internal Medicine 06/05/[address] [place] [id number]
--- OUTSIDE RECORDS SUMMARY | 2022-01-19 07:35 | XMS_ITS | Encounter Summary ---
:1950 Author Organization [facility] Address [facility] [place] [address] Care Team Providers Name Role Phone Farzaneh Winkler APRN Primary Care Provider Encounter Details Date Type Department Care Team Description 12/30/2021 Orders Only Hematology/Oncology at RakeshFabian florence MD Primary lung adenocarcinoma, right; [facility] [place] neoplasm of lower third of esophagus; [address] [place] [address] [address] Liver metastases [place], [place] HEMATOLOGY/ONCOLOG [id number] Y DEPT. [phone] [place], [place] [address] Social History Tobacco Use Types Packs/Day Years [...] Visit Hematology and Oncology Loan Burton APRN [facility] HEMATOLOGY/[place] [address] 01/19/2022 Infusion Hematology and Oncology Canc eled (F-ARIA CANCEL) 01/25/2022 Hospital Gastroenterology Jose Clark MD [facility] [place] [address] 01/25/2022 Surgery Gastroenterology Jose Clark EGD, LOLA Yates MD ENDOSCOPY [facility] [place] [address] 01/26/2022 Office Visit Hematology and Oncology Fabian Cameron MD [facility] DR HEMATOLOGY/[place] [address] Loan Burton APRN [facility] HEMATOLOGY/[place] [address] 01/26/2022 Infusion Hematology and Oncology 02/02/2022 Office Visit Hematology and Oncology Fabian Cameron MD [facility] HEMATOLOGY/[place] [address] 02/02/2022 Infusion Hematology and Oncology 02/22/2022 Telephone Hematology and Oncology Siena Lloyd, MUKUND [facility] DR[place] [address] Scheduled Orders Name Type Priority Associated Diagnoses Order S chedule Specimen to Pathology Pathology/Cytol Routine Primary lung Ord ered: 12/30/2021 Additional Testing ogy adenocarcinom a, right Malignant neoplasm of lower third of esophagus Liver metastases Scheduled Procedures Name Priority Associated Diagnoses Date/Time EGD, UPPER GI ENDOSCOPY EGD with stent vs 2021 12:00 PM EDT cryotherapy. documented as of this encounter Visit Diagnoses Diagnosis Primary lung adenocarcinoma, right Malignant neoplasm of lower third of eso phagus Liver metastases Secondary malignant neoplasm of liver documented in this encounter Care Teams Rod Mill Tender Relationship Specialty Start Date End Date Farzaneh Winkler, ADVERTISING ASSISTANT MANAGER PCP - General General Internal Medicine 06/05/[address] [place], [place] [id number] documented as of this encounter
--- OUTSIDE RECORDS SUMMARY | 2022-01-19 07:35 | XMS_ITS | Encounter Summary ---
:1950 Author Organization [place] [address] Care Team Providers Name Role Phone Farzaneh Winkler APRN Primary Care Provider Encounter Details Date Type Department Care Team Description 11/29[facility]2021 [facility] [address] [phone] Social History Tobacco Use [...] Hematology and Oncology Loan Burton APRN [facility] HEMATOLOGY/[place] [address] 01/19/2022 Infusion Hematology and Oncology Canc eled (F-ARIA CANCEL) 01/25/2022 Hospital Gastroenterology Jose Clark MD [facility] [place] [address] 01/25/2022 Surgery Gastroenterology Jose Clark, LOLA Yates MD ENDOSCOPY [facility] [place] [address] 01/26/2022 Office Visit Hematology and Oncology Fabian Cameron MD [facility] DR HEMATOLOGY/[place] [address] Loan Burton APRN [facility] HEMATOLOGY/[place] [address] 01/26/2022 Infusion Hematology and Oncology 02/02/2022 Office Visit Hematology and Oncology Fabian Cameron MD [facility] DR HEMATOLOGY/[place] [address] 02/02/2022 Infusion Hematology and Oncology 02/22/2022 Telephone Hematology and Oncology Siena Lloyd, MUKUND [facility] DR[place] [address] Scheduled Procedures Name Priority Associated Diagnoses Date/Time EGD, UPPER GI ENDOSCOPY EGD with stent vs 2021 12:00 PM EDT cryotherapy. documented as of this encounter Visit Diagnoses Not on filedocumented in this encounter Care Teams Drosser Relationship Specialty Start Date End Date Farzaneh Winkler, DINKEY OPERATOR SLATE PCP - General General Internal Medicine 06/05/[address] [place] [id number] documented as of this encounter
--- OUTSIDE RECORDS SUMMARY | 2022-01-19 07:35 | XMS_ITS | Encounter Summary ---
:1950 Author Organization [facility] [place] [address] Care Team Providers Name Role Phone Farzaneh Winkler APRN Primary Care Provider Reason for Visit Consultation (Routine) - Authorized Specialty Diagnoses / Procedures Referred By Contact Refer red To Contact Hematology and Oncology Diagnoses Personal history of other malignant neoplasm of bronchus and lung personal history of other milgnant neoplasm of bronchus and lung Farzaneh Winkler, [facility] Hem Onc Office Procedures CHEMO IMMIGRATION GUARD [address] [place] [address] [phone] Fax: Referral ID Status Reason Start Date Expiration Date Visits V isits Requested Authorized [id number] Authorized 05/17/2021 05/17/2022 99 99 Encounter Details Date Type Department Care Team Description 01/19/2022 Infusion Hematology Oncology at [facility] (F-ARIA CANCEL) [address] [phone] Social History Tobacco Use [...] Burton APRN [facility] HEMATOLOGY/[place] [address] 01/25/2022 Hospital Gastroenterology Jose Clark MD [facility] [place] [address] 01/25/2022 Surgery Gastroenterology Jose Clark EGD, LOLA Yates MD ENDOSCOPY [facility] [place] [address] 01/26/2022 Office Visit Hematology and Oncology Fabian Cameron MD [facility] HEMATOLOGY/[place] [address] Loan Burton, NOLAN [facility] HEMATOLOGY/[place] [address] 01/26/2022 Infusion Hematology and Oncology 02/02/2022 Office Visit Hematology and Oncology Fabian Cameron MD [facility] HEMATOLOGY/[place] [address] 02/02/2022 Infusion Hematology and Oncology 02/22/2022 Telephone Hematology and Oncology Siena Lloyd RD [facility] [address] [place] [address] Scheduled Procedures Name Priority Associated Diagnoses Date/Time EGD, UPPER GI ENDOSCOPY EGD with stent vs 08/10/ 2022 12:00 PM EDT cryotherapy. documented as of this encounter Visit Diagnoses Not on filedocumented in this encounter Care Teams Registered Nurse Fetal Relationship Specialty Start Date End Date Farzaneh Winkler, IMMIGRATION GUARD PCP - General General Internal Medicine 06/05/[address] [place] [phone] documented as of this encounter
--- OUTSIDE RECORDS SUMMARY | 2022-01-19 07:35 | XMS_ITS | Encounter Summary ---
:1950 Author Organization [facility] Address [address] [place] [address] Care Team Providers Name Role Phone Unavailable Primary Care Provider Unavailable Encounter Details Date Type Department Care Team Description 09/16/2008 Before PRISM [facility] Reed Marques, Converted Visit Yuni keith MD (Yuni) [address] [facility] [address] [place] [address] [place], [place] [phone] (Wo rk) Social History Tobacco Use Types Packs/Day Years Used Date Never Assessed Sex Assigned at Date Recorded Not on file documented as of this encounter Plan of Treatment Not on filedocumented as of this encounter Procedures Procedure Name Priority Date/Time Associated Diagnosis Comme [facility] SURGICAL PATHOLOGY Routine 09/16/2008 0:00 EDT Re sults for this procedure are i n the results section. documented in this encounter Results SURGICAL PATHOLOGY (09/16/2008 0:00 EDT) Pathology Report: SURGICAL PATHOLOGY REPORT ? MARIELA GEORGES Reports generated via electr Re2you interface contain original data; ? LAB however they are lacking the format of the original report. ? Caution should be taken when reading/interpreting unformatted reports. ? Name: ? MEEK, LUCAS N ? Accession #: ? [id number] ? : ? 1950 (Age: 58) ??M ? Collec t Date: ? 09/16/2008 ? Location: ? [facility] ? R eceive Date: ? 09/16/2008 ? Provider: REED D DREISBACH MD ? Copy to: SHAYLA MAXWELL MD ? Final Pathologic Diagnosis: ? Soft tissue, right kn ee, biopsy: ? - ??Chronic synovitis. ??See comment. ? Comment: ? Histologic sections o f the specimen show synovial-lined fibrovascular ? tissue and adipose tissue. ? ?There is mild, chronic inflammation. ??No features of rheumatoid arthritis are ezio ntified. ??(Dr. Villafana)/mpl ? Document reviewed and electr onically signed by: ? Papo Villafana, ? Report ??Date: 09/18/2008 14 :40 ? By the signature above, the attending physician certifies that he/she has ? personally conducted a gross and/or microscopic examination of the described ? specimens and rendered or co nfirmed the above diagnosis. ? Specimen(s) Received: ? Rt knee synovium ? Clinical History: ? R/O rheumatoid arthri tis; E.S.O.A. Rt knee ? Gross Description: ? Received in formalin labelled Meek, Lucas and right knee synovium ?? are five yellow-boyd, irregul ar soft tissue fragments ranging in size from 0.4 x 0.4 x 0.3 cm to 3.8 x 1.5 x 1.0 cm. ??Approximately 75% of the specimen is ? submitted in one cassette. ( T. Morgan)/mpl ? End of Report ? Specimen Performing Organization Address City/State/ZIP Code Phon e Number [facility] [address] [place] [address] SERVICES [facility] [address] [place] [address] documented in this encounter Visit Diagnoses Not on filedocumented in this encounter
--- OUTSIDE RECORDS SUMMARY | 2022-01-19 07:35 | XMS_ITS | Encounter Summary ---
:1950 Author Organization [facility] [place] [address] Care Team Providers Name Role Phone Farzaneh Winkler APRN Primary Care Provider Encounter Details Date Type Department Care Team Description 01/13/2022 Telephone Gastroenterology at [facility] [place] [place] [phone] Social History Tobacco Use Types Packs/Day Years [...] this encounter Miscellaneous Notes Telephone Encounter - Ar[place]ia [place] E - 01/13/2022 8:39 AM EDT Alin Meek [id number] Diagnosis/Indication: EGD with stent vs cryotherapy. Please review patient chart to confirm if previous Endoscopy procedure was performed within system. If yes, take note of Anesthesia type used. If previous procedure found, and with MAC/propofol Anesthesia support was used, schedule this procedure with Anesthesia and skip the Anesthesia portion of qu estions. If not performed within system, not performed at all, or performed with IVCS, ask Anesthesia questions. SCHEDULING QUESTIONS (ask all patient these questions) 1. Have you ever had a/an Upper Endoscopy before? Yes: Date at the [facility] If yes, did you have any problems with the procedure (such as waking up during the procedure, pain or difficulties afterwards, etc.)? No What type of sedation was used: General Anesthesia 2. Do you take any blood thinners or have you been diagnosed with a bleeding disorder that increasesyour risk of bleeding with procedures? No 3. Do you have a Pacemaker or Defibrillator device? If yes, send pool message to Cardiology with patient information and date or procedure. No 4. Are you a diabetic? If yes, call PCP/managing provider to discuss use of prep and any questions or concerns related to. No 5. Do you take any iron supplements or vitamins that contain iron? No 6. Do you have a preference regarding the gender of your provider? No ANESTHESIA QUESTIONS (YES to any question, please book with Anesthesia support) 7. Have you ever been diagnosed with any of the following: Pulmonary Hypertension, Atrial Fibrillation (A-Fib) and/or Congential Heart Disease? No 8. Have you ever had an allergic or adverse reaction to Fentanyl or Versed? No 9. Have you had a problem with sedation or anesthesia? (Waking up during procedure, extreme confusion after, etc.) No 10. Do you have a diagnosis of Obstructive Sleep Apnea? No 11. Do you use a c-pap machine? Neither 12. Do you use an oxygen tank at home? No 13. Do you use a rescue inhaler more than twice per day? (COPD, severe asthma) No 14. Do you experience breathing problems when you lay flat for a period of time? No 15. Do you take prescription narcotic pain medications, including suboxone or methodone? No SCHEDULING CONFIRMATIONS: Please note any and all parts of your conversation with the patient here. 16. We offer all new patients an opportunity to have an appointment with one of our associate care providers to learn more about your upcoming procedure, ask questions and get answers. These appointments are offered via telehealth. Would you be interested in scheduling this appointment? (Only ask if NEW referral patient; skip this question if [facility] provider ordered the procedure.) No 17. Is there any other information or concerns you would like to us to share with your care team in relation to your upcoming scheduled procedure? No 18. You must have a responsible republican who will drive you to your procedure, stay on campus for the entire duration of your procedure, and drive you home from your procedure. Who will likely be your spike driver for the procedure? *Please Verify the height and weight, and adjust if height and/or weight have changed* Estimated body mass index is 33.17 kg/m?? as calculated from the following: Height as of 12/29/21: 180.4 cm (5' 11.02). Weight as of 12/29/21: 108 kg (238 lb). Age:71 y.o. documented in this encounter Plan of Treatment Upcoming Encounters Date Type Specialty Care Team Description 01/19/2022 Office Visit Hematology and Oncology Loan Burton, NOLAN [facility] HEMATOLOGY/[place] [address] 01/19/2022 Infusion Hematology and Oncology Canc eled (F-ARIA CANCEL) 01/25/2022 Hospital Gastroenterology Jose Clark MD [facility] [place] [address] 01/25/2022 Surgery Gastroenterology Jose Clark, UPREENA Yates MD ENDOSCOPY [facility] [place] [address] 01/26/2022 Office Visit Hematology and Oncology Fabian Cameron MD [facility] HEMATOLOGY/[place] [address] Loan Burton APRN [facility] HEMATOLOGY/[place] [address] 01/26/2022 Infusion Hematology and Oncology 02/02/2022 Office Visit Hematology and Oncology Fabian Cameron MD [facility] HEMATOLOGY/[place] [address] 02/02/2022 Infusion Hematology and Oncology 02/22/2022 Telephone Hematology and Oncology Siena Lloyd RD [facility] [address]IVE [place] [address] Scheduled Procedures Name Priority Associated Diagnoses Date/Time EGD, UPPER GI ENDOSCOPY EGD with stent vs 2021 12:00 PM EDT cryotherapy. documented as of this encounter Visit Diagnoses Not on filedocumented in this encounter Care Teams Speech Pathology Teacher Relationship Specialty Start Date End Date Farzaneh Winkler, EDUCATIONAL PROGRAM DIRECTOR PCP - General General Internal Medicine 06/05/[address] [place] [id number] documented as of this encounter
--- OUTSIDE RECORDS SUMMARY | 2022-01-19 07:35 | XMS_ITS | Encounter Summary ---
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 [address] Referral ID Status Reason Start Date Expiration Visits Visits Date Requested Authorized [id number] Authorized Consult, 12/29/2021 06/27/2022 1 1 Test & Treat Non PCP urgical (Urgent) - Closed Specialty Diagnoses / Procedures Referred By Contact Refer red To Contact Gastroenterology Diagnoses Malignant neoplasm of lower third of esophagus new esoph cancer, metastatic. he would probably benefit from a stent Fabian Cameron MD [facility] Endoscopy 4t Procedures EGD would offer that with Kendell or me for EGD with stent vs cryotherapy. [facility] HEMATOLOGY/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 [address] Referral ID Status Reason Start Date Expiration Date Visits V isits Requested Authorized [id number] Closed Specialty 05/17/2021 05/17/2022 1 1 Service Requested Encounter Details Date Type Department Care Team Description 12/29/2021 Office Visit Hematology/Oncology Cadence Cameron MD [facility] HEMATOLOGY/[place] [address] Primary lung adenocarcinoma, right; at [facility] Loan Burton, NOLAN [facility] DR HEMATOLOGY/[place] [address] Malignant neoplasm of lower third of eso phagus; [address] [place] [address] Social History Tobacco Use Types Packs/Day Years [...] Sign Reading Time Taken Comments Blood Pressure 106/79 12/29/2021 9:02 AM EDT Pulse 93 12/29/2021 9:02 AM EDT Temperature 36.8 ??C (98.2 ??F) 12/29/2021 9:02 AM EDT Respiratory Rate 24 12/29/2021 9:02 AM EDT Oxygen Saturation 98% 12/29/2021 9:02 AM EDT Inhaled Oxygen Concentration - - Weight 108 kg (238 lb) 12/29/2021 9:02 AM EDT Height 180.4 cm (5' 11.02) 12/29/2021 9:02 AM EDT Body Mass Index 33.17 12/29/2021 9:02 AM EDT documented in this encounter Progress Notes Cassi Martinez RN - 12/29/2021 9:00 AM EDT . J New Patient Medical Oncology Note SOCIAL ASSESSMENT: See EDH social assessment information entered. 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 Potential hospice in near future Housing: [ x ] home [ ] assisted living [ ] other [ ] alone [x ] caregiver/roommate/spouse Support Systems: Lives with his . Has 3 children all living near or within the State Transportation plan: [x ]private vehicle [ ] RCT needs Social Work referral [ ] Unknown at this time needs Social Work referral PCP: [facility] Rx insurance? [ x ] yes [ ] no. [place] FUNCTIONAL SCREENING: Balance difficulty: [ ]no [x ]yes At risk for fall: [ ] no [x ] yes If yes, actions implemented to prevent fall. Patient/family instructed to avoid independent ambulation. Use wheelchair and ask for assistance of staff while in the clinic. ADL [ ] no limits [x ] needs dressing assistance [ x ] needs meal assistance Assistive device:[ ]none [ x ]cane [ ]walker [ x ]wheelchair [ ]other: explain PAIN ASSESSMENT: [4-5 ] out of 10. Mid epigastric and R ribs from recent fall at home Location: Description: [c ] Dull [ ] Sharp [ ] Burning [ ] Throbbing [ ] Radiating [ ] Continuous [ c ] Intermittent Aggravating Factors: [ c ] Movement [c ] Position [ ] Immobility [ ] Other Alleviating Factors: [ ] Medication [ c ] Positioning [ ] Other Current Pain Management Plan: [ c ] Satisfied [ ] Not satisfied LEARNING STYLE: Learning Needs Assessment up to date (yearly) [12/29/21 ] TEACHING: __ NCI ???Chemotherapy and You?? and folder given x__ Specific chemotherapy literature provided and reviewed with patient. Carboplatin/Paclitaxel (3 hour) VASCULAR ACCESS ASSESSMENT: getting chemo? [ x ]yes [ ]no Need port? [ x ] yes [ ] no. This has been discussed and ordered. Fabian Paz MD - 12/29/2021 9:00 AM EDT Subjective: Patient ID: Alin Meek is a 71 y.o. male. HPI Stage IIIa adenocarcinoma of right lung 06/03 Not a surgical candidate EGFR/ALK negative PDL 1+ at 90% Definitive RT with carbo docetaxel 07/12-08/21 achieved a IA radiographically Durvalumab times 1 year completed 09/04/[address] scan 11/19/18 stable with IA Empyema 09/04 w/ corynbacterium No evidence cancer recurrence Lost to f/u in oncology Presents 06/07 for onc f/u Last CT chest stable 07/09 The patient returns to the [facility] in follow-up for his stage IIIa lung cancer. He came to clinic for his regularly scheduled lung cancer follow-up where he is now about 5-1/2 years out from hisdefinitive therapy. Unfortunately we were able to obtain records and interview and examined the patient and his talk with . He was admitted at the [facility] for an apparent aspiration pneumonia. He had evidence of adistal esophageal lesion which was biopsied and consistent with his primary esophageal carcinoma. Staging revealed metastatic disease in the liver as well as abdominal adenopathy. We were able to call the pathology office. HER2 studies are being done at the [facility] lab. NGS wasnot ordered. The patient is now home. He completed a course of antibiotics for the aspiration pneumonia. Still has a difficult time with eating. He is lost 60 to 70 pounds. He is still up taking care of his activities of daily living independently. Patient Active Problem List Diagnosis Code ??? 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 Benign essential hypertension I10 ??? Chronic obstructive lung disease J44.9 ??? Morbid obesity E66.01 ??? Primary malignant neoplasm of lung C34.90 ??? Pain in joint M25.50 ??? Low back pain M54.50 ??? Lung cancer C34.90 ??? Hx of pleural effusion Z87.09 Current Outpatient Medications: ??? famotidine (Pepcid) 20 mg Tablet, Take 10 mg by mouth 2 times daily., Disp: , Rfl: ??? sertraline (ZOLOFT) 100 mg Tablet, Daily., Disp: , Rfl: ??? sertraline (Zoloft) 50 mg Tablet, Take 150 mg by mouth daily., Disp: , Rfl: ??? amLODIPine (Norvasc) 10 mg Tablet, Take 10 mg by mouth daily., Disp: , Rfl: ??? budesonide-formoteroL (Symbicort) 160-4.5 mcg/actuation HFA Aerosol Inhaler, Inhale 2 puffs twice a day by inhalation route., Disp: , Rfl: ??? fluticasone/vilanterol (BREO ELLIPTA INHL), Inhale 1 Dose into the lungs daily., Disp: , Rfl: ??? cholecalciferol, Vitamin D3, 2,000 unit Tablet, Take 2,000 Units by mouth daily., Disp: , Rfl: ??? loperamide (Imodium A-D) 2 mg Capsule, Take 2 mg by mouth 4 times daily as needed for Diarrhea.,Disp: , Rfl: ??? losartan (COZAAR) 25 mg Tablet, Take 25 mg by mouth daily., Disp: , Rfl: ??? chlorthalidone (HYGROTEN) 25 mg Tablet, Take 25 mg by mouth daily., Disp: , Rfl: ??? ALBUTEROL INHL, Inhale into the lungs every 4 hours as needed., Disp: , Rfl: ??? triamcinolone (KENALOG) 0.1 % Cream, Apply topically 2 times daily as needed., Disp: , Rfl: ??? diclofenac sodium (Diclo Gel) 1 % Kit, Apply 1 Application topically as needed., Disp: , Rfl: ??? senna (Senokot) 8.6 mg Tablet, Take 2 tablets by mouth every evening. (Patient not taking: Reported on 12/29/2021), Disp: 60 tablet, Rfl: 11 Allergies Allergen Reactions ??? Lisinopril Angioedema Lips got swollen Other reaction(s): Lip swelling Review of Systems Constitutional: Negative for fatigue, fever and unexpected weight change. HENT: Negative for nosebleeds. Respiratory: Negative for cough and shortness of breath. Cardiovascular: Negative for chest pain and palpitations. Gastrointestinal: Negative for abdominal pain and diarrhea. Musculoskeletal: Negative for back pain. Skin: Negative for rash. Neurological: Negative for speech difficulty. Hematological: Negative for adenopathy. Does not bruise/bleed easily. All other systems reviewed and are negative. Objective: Physical Exam Constitutional: General: He is not in acute distress. HENT: Mouth/Throat: Pharynx: No oropharyngeal exudate. Eyes: General: No scleral icterus. Cardiovascular: Rate and Rhythm: Normal rate and regular rhythm. Heart sounds: Normal heart sounds. Pulmonary: Effort: No respiratory distress. Breath sounds: Wheezing present. Abdominal: General: Bowel sounds are normal. Palpations: Abdomen is soft. There is no splenomegaly. Tenderness: There is no abdominal tenderness. Lymphadenopathy: Cervical: No cervical adenopathy. Lower Body: No right inguinal adenopathy. No left inguinal adenopathy. Neurological: Mental Status: He is oriented to person, place, and time. Pathology report from the [place] confirms signet ring adenocarcinoma Assessment and Plan: 70-year-old man who presented with a stage IIIa adenocarcinoma of the right lung. He was not a surgical candidate. He received definitive radiation with concurrent chemotherapy completing that in August2017. He achieved a partial remission by radiographic CT scan. Subsequently he was initiated on every 2 week immunotherapy with Durvalumab. He completed 1 year of that in 08/31. At this point he shows no evidence of recurrence of this cancer. Unfortunately he has a an apparent new esophageal adenocarcinoma with metastatic disease in the liver and abdominal nodes. His performance status is borderline. I think it is possible he is a candidate for systemic chemotherapy in the palliative setting. I think it is more important now to try to palliate some of his symptoms mechanically if we can. I think given his recent aspiration and the difficulties having swallowing and esophageal stent should be considered. I will consult with the GI group at [facility] to see if they can place one for him. We are still awaiting the final pathology report to see if he has HER2 positive disease. It may alsobe reasonable to do next generation sequencing because I think he would be a candidate for immunotherapy more likely than chemotherapy if he had microsatellite instable disease. I would also like to complete his staging with a PET scan. Today we did initiate discussions regarding end-of-life decisions. We talked about palliative care and I did make a referral. I estimated if he does not take therapy or does not respond to therapy he probably only has a few months to live. We are hopeful that we can impact that but he does have advanced disease. I will plan to see him back in a couple of weeks to see if we have enough data to make a decision about recommending therapy. If he has no targetable mutation we will assess whether he is a candidate for carboplatinum with Taxol as systemic palliative therapy. In addition he never did get his port out which we recommended a while ago. It is a nonfunctioning for so that we will need to be removed and we will need to place a new port to facilitate chemotherapy. I will make a referral to interventional radiology at [facility] to help set that up. documented in this encounter Plan of Treatment Upcoming Encounters Date Type Specialty Care Team Description 01/19/2022 Office Visit Hematology and Oncology Loan Burton, NOLAN [facility] HEMATOLOGY/[place] [address] 01/19/2022 Infusion Hematology and Oncology Canc eled (F-ARIA CANCEL) 01/25/2022 Hospital Gastroenterology Jose Clark MD [facility] [place] [address] 01/25/2022 Surgery Gastroenterology Jose Clark UPPE R GI R, MD ENDOSCOPY [facility] [place] [address] 01/26/2022 Office Visit Hematology and Oncology Fabian Cameron MD [facility] HEMATOLOGY/[place] [address] Loan Burton, NOLAN [facility] HEMATOLOGY/[place] [address] 01/26/2022 Infusion Hematology and Oncology 02/02/2022 Office Visit Hematology and Oncology Fabian Cameron MD [facility] HEMATOLOGY/[place] [address] 02/02/2022 Infusion Hematology and Oncology 02/22/2022 Telephone Hematology and Oncology [facility] DRIVE [place] [address] Scheduled Procedures Name Priority Associated Diagnoses Date/Time EGD, UPPER GI ENDOSCOPY EGD with stent vs 2021 12:00 PM EDT cryotherapy. Scheduled Referrals Name Type Priority Associated Order Schedule Diagnoses Referral to Outpatient STAT Malignant neoplasm Ordered: Gastroenterology Referral of lower third of 2021 esophagus Referral to Palliative Outpatient Routine Malignant neoplasm Ordered: Care Referral of lower third of 12/29/2021 esophagus Liver metastases documented as of this encounter Results IR Mediport Removal (01/17/2022 [...] SVC. Fabian Cameron MD IMG IR ORDERABLES NM PET CT Skull Base to Mid-thigh [...] who have questions please contact the health doggy daycare activities director that requested your imaging first. ? Electronically signed by: [facility] ([phone]), at 01/13/2022 1:41 PM Narrative 01/13/2022 1:41 PM EDT EXAMINATION: NM PET CT STANDARD SKULL BASE TO MID-THIGH CLINICAL HISTORY: Colorectal cancer, ass ess treatment response; Gastrointestinal cancer, staging. 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 TECHNIQUE: Following IV injection of 18- eeirso-9-ivkrycgqsclb (FDG) a standard uptake of approximately 60 [...] carcinoma. TECHNIQUE: Following IV injection of 18- wkuylz-4-vigyznytfwld (FDG) a standard uptake of approximately 60 [...] ho have questions please contact the health doggy daycare activities director that requested your imaging first. Electronically signed by: Fabian Cruz MD, [facility] ([phone]), at 01/13/2022 1:41 PM Fabian Cameron MD IMG PET ORDERABLES documented in this encounter Visit Diagnoses Diagnosis Primary lung adenocarcinoma, right Malignant neoplasm of lower third of eso phagus Liver metastases Secondary malignant neoplasm of liver Malignant neoplasm of lower third of eso phagus Liver metastases Secondary malignant neoplasm of liver Pre-op testing Preoperative examination, unspecified Malignant neoplasm of lung, unspecified laterality, unspecified part of lung Malignant neoplasm of lower third of eso phagus Liver metastases Secondary malignant neoplasm of liver documented in this encounter Care Teams Back Office Medical Assistant Relationship Specialty Start Date End Date Farzanhe Winkler, COOLER TENDER PCP - General General Internal Medicine 06/05/[address] [place] [address] documented as of this encounter
--- OUTSIDE RECORDS SUMMARY | 2022-01-19 07:35 | XMS_ITS | Clinical Summary ---
:1950 Author Organization [facility] Address [address] [place] [address] Care Team Providers Name Role Phone Anca Monsivais MD Primary Care Provider Social History Tobacco Use Types Packs/Day Years Used Date Never Assessed Sex Assigned at Date Recorded Not on file Plan of Treatment Health Maintenance Due Date Last Done Comments Fall Risk Screening 2016 Care Teams Industrial Roof Plumber Relationship Specialty Start Date End Date Anca Monsivais MD PCP - General 04/30/[address] [place] [id number]
--- OUTSIDE RECORDS SUMMARY | 2022-01-19 07:35 | XMS_ITS | Encounter Summary ---
:1950 Author Organization [facility] [place] [address] Care Team Providers Name Role Phone Farzaneh Winkler APRN Primary Care Provider Encounter Details Date Type Department Care Team Description 01/18/2022 Telephone Hematology/Oncology at [address] HEMATOLOGY AND ONCOLOGY [place], [place] [address] [place] [address] [phone] (Wo rk) Social History Tobacco Use Types [...] Encounter - [address] - 01/18/2022 10:40 AM EDT Please see other note from today. documented in this encounter Plan of Treatment Upcoming Encounters Date Type Specialty Care Team Description 01/19/2022 Office Visit Hematology and Oncology Loan Burton, NOLAN [facility] HEMATOLOGY/[place] [address] 01/19/2022 Infusion Hematology and Oncology Can eled (F-ARIA CANCEL) 01/25/2022 Hospital Gastroenterology Jose Clark MD [facility] [place] [address] 01/25/2022 Surgery Gastroenterology Jose Clark UPPE R GI R, MD ENDOSCOPY [facility] [place] [address] 01/26/2022 Office Visit Hematology and Oncology Fabian Cameron MD [facility] HEMATOLOGY/[place] [address] Loan Burton, NOLAN [facility] HEMATOLOGY/[place] [address] 01/26/2022 Infusion Hematology and Oncology 02/02/2022 Office Visit Hematology and Oncology Fabian Cameron MD [facility] HEMATOLOGY/[place] [address] 02/02/2022 Infusion Hematology and Oncology 02/22/2022 Telephone Hematology and Oncology [address] [facility] DRIVE [place] [address] Scheduled Procedures Name Priority Associated Diagnoses Date/Time EGD, UPPER GI ENDOSCOPY EGD with stent vs 2021 12:00 PM EDT cryotherapy. documented as of this encounter Visit Diagnoses Not on filedocumented in this encounter Care Teams Warehouser Relationship Specialty Start Date End Date Farzaneh Winkler, NOLAN PCP - General General Internal Medicine 06/05/[address] [place], [place] [id number] documented as of this encounter
--- OUTSIDE RECORDS SUMMARY | 2022-01-19 07:35 | XMS_ITS | Encounter Summary ---
:1950 [place] [address] Care Team Providers Name Role Phone Farzaneh Winkler APRN Primary Care Provider Encounter Details Date Type Department Care Team Description 12/31/2021 Notes Only Radiology [place] [facility] Otf Cox DO [facility] [place] [address] RADIOLOGY [phone] [place] [id number] (Wo rk) Social History Tobacco Use Types [...] on file documented as of this encounter H&P Notes Otf Cox DO - 12/31/2021 11:36 AM EDT Images from [...] Procedure request received through the Interventional Radiology [facility] order queue. Presenting Diagnosis/ Complaint: Alin Meek is a 71 y.o. male presenting [...] the venotomy site. IR History: None at [facility]. Antiplatelets: None. Anticoagulants: None. Recent Laboratories: ??? [...] 2.78) performed by Stan Bernal MD at [facility] MAIN OR ? ? PRO INJECTION ANES AGENT &/ STEROID INTERCOSTAL NERVE EA ADDL LEVEL Right 09/05/2019 NERVE BLOCK, INTERCOSTAL NERVE, MULTIPLE (WRVU 1.68) performed by Stan Bernal MD at [facility] MAIN OR ??? PRO INSERTION OF INDWELLING TUNNELED PLEURAL CATHETER Right 09/05/2019 INSERTION INDWELLING PLEURAL CATHETER W\CUFF (WRVU 4.17) performed by Stan Bernal MD at [facility] MAIN OR ??? PRO THORACOSCOPY WITH BIOPSY OF PLEURA Right 09/05/2019 THORACOSCOPY; WITH BIOPSY(IES) OF PLEURA (WRVU 4.58) performed by Stan Bernal MD at [facility] MAIN OR ??? SUBTOTAL COLECTOMY 05/23/2016 ??? TOTAL [...] Comment: for 8 months ??? 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 Smoking status: Former Smoker Packs/day: 2.00 Types: Cigarettes Start date: 1969 Quit date: 2016 Years since quittin.5 ??? Smokeless tobacco: Former User Types: Chew Quit date: 1974 ??? Tobacco comment: 2016 quit Vaping Use ??? Vaping Use: Never [...] [facility] HEMATOLOGY/[place] [address] 01/19/2022 Infusion Hematology and Oncology Canc eled (F-ARIA CANCEL) 01/25/2022 Hospital Gastroenterology Jose Clark MD [facility] [place] [address] 01/25/2022 Surgery Gastroenterology Jose Clark UPPE R GI R, MD ENDOSCOPY [facility] [place] [address] 01/26/2022 Office Visit Hematology and Oncology Fabian Cameron MD [facility] HEMATOLOGY/[place] [address] Loan Burton, NOLAN [facility] HEMATOLOGY/[place] [address] 01/26/2022 Infusion Hematology and Oncology 02/02/2022 Office Visit Hematology and Oncology Fabian Cameron MD [facility] DR HEMATOLOGY/[place] [address] 02/02/2022 Infusion Hematology and Oncology 02/22/2022 Telephone Hematology and Oncology Siena Lloyd RD [facility] DRIVE [place]OLOGY [place] [address] Scheduled Procedures Name Priority Associated Diagnoses Date/Time EGD, UPPER GI ENDOSCOPY EGD with stent vs 2021 12:00 PM EDT cryotherapy. documented as of this encounter Visit Diagnoses Not on filedocumented in this encounter Care Teams Chief Scientist Relationship Specialty Start Date End Date Farzaneh Winkler, SUPERVISOR [employer] PCP - General General Internal Medicine 06/05/[address] [place] [address] documented as of this encounter
--- OUTSIDE RECORDS SUMMARY | 2022-01-19 07:35 | XMS_ITS | Encounter Summary ---
:1950 Author Organization [facility] [place] [address] Care Team Providers Name Role Phone Farzaneh Winkler APRN Primary Care Provider Encounter Details Date Type Department Care Team Description 12/06[facility] [address] [phone] Social History Tobacco Use [...] Visit Hematology and Oncology Loan Burton APRN [facility] HEMATOLOGY/[place] [address] 01/19/2022 Infusion Hematology and Oncology Canc eled (F-ARIA CANCEL) 01/25/2022 Hospital Gastroenterology Jose Clark MD [facility] [place] [address] 01/25/2022 Surgery Gastroenterology Jose Clark, LOLA Yates MD ENDOSCOPY [facility] [place] [address] 01/26/2022 Office Visit Hematology and Oncology Fabian Cameron MD [facility] DR HEMATOLOGY/[place] [address] Loan Burton APRN [facility] HEMATOLOGY/[place] [address] 01/26/2022 Infusion Hematology and Oncology 02/02/2022 Office Visit Hematology and Oncology Fabian Cameron MD [facility] DR HEMATOLOGY/[place] [address] 02/02/2022 Infusion Hematology and Oncology 02/22/2022 Telephone Hematology and Oncology Siena Lloyd, MUKUND [facility] DRIVE HEMATOLOGY [place] [address] Scheduled Procedures Name Priority Associated Diagnoses Date/Time EGD, UPPER GI ENDOSCOPY EGD with stent vs 2021 12:00 PM EDT cryotherapy. documented as of this encounter Visit Diagnoses Not on filedocumented in this encounter Care Teams Cadmium Liquor Maker Relationship Specialty Start Date End Date Farzaneh Winkler, RECYCLING CENTER OPERATOR PCP - General General Internal Medicine 06/05/[address] [place] [id number] documented as of this encounter
--- OUTSIDE RECORDS SUMMARY | 2022-01-19 07:35 | XMS_ITS | Encounter Summary ---
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 Rad Nuclear Med Procedures NM PET CT Skull Base to Mid-thigh [facility] HEMATOLOGY/[place] [address] 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 Rad Nuclear Med Procedures NM PET CT Skull Base to Mid-thigh [facility] HEMATOLOGY/[place] [address] [place] [address] Referral ID Status Reason Start Date Expiration Date Visits V isits Requested Authorized [id number] Closed Specialty 05/17/2021 05/17/2022 1 1 Service Requested Encounter Details Date Type Department Care Team Description 01/12/2022 Hospital Encounter Nuclear Medicine at Fabian Cameron, Malignant neoplasm of lower third of esophagus; Sri Burks MD Liver metastases [facility] [address] [place], [place] HEMATOLOGY/ONCOL [address] [facility] DEPT. [phone] [place] [address] Social History Tobacco Use Types Packs/Day Years [...] on file documented as of this encounter Medications at Time of Discharge [...] as needed. documented as of this encounter Plan of Treatment Upcoming Encounters Date Type Specialty Care Team Description 01/19/2022 Office Visit Hematology and Oncology Loan Burton, NOLAN [facility] HEMATOLOGY/[place] [address] 01/19/2022 Infusion Hematology and Oncology Canc eled (F-ARIA CANCEL) 01/25/2022 Hospital Gastroenterology Jose Clark MD [facility] [place] [address] 01/25/2022 Surgery Gastroenterology Jose Clark UPPE R GI R, MD ENDOSCOPY [facility] [place] [address] 01/26/2022 Office Visit Hematology and Oncology Fabian Cameron MD [facility] HEMATOLOGY/[place] [address] Loan Burton, NOLAN [facility] HEMATOLOGY/[place] [address] 01/26/2022 Infusion Hematology and Oncology 02/02/2022 Office Visit Hematology and Oncology Fabian Cameron MD [facility] HEMATOLOGY/[place] [address] 02/02/2022 Infusion Hematology and Oncology 02/22/2022 Telephone Hematology and Oncology Page, Siena Samayoa RD [facility] HEMATOLOGY AND ONCOLOGY [place] [phone] Scheduled Procedures Name Priority Associated Diagnoses Date/Time EGD, UPPER GI ENDOSCOPY EGD with stent vs 2021 12:00 PM EDT cryotherapy. documented as of this encounter Procedures Procedure Name Priority Date/Time Associated Diagnosis Comme nts NM PET CT SKULL Routine 01/12/2022 2:30 PM Malignant neoplasm Results for this BASE TO MID-THIGH EDT of lower third of proce dure are in (LCSR) esophagus the results Liver metastases section. POCT GLUCOSE Routine 01/12/2022 1:26 PM Results f or this EDT procedure are i n the results section. documented in this encounter Results NM PET CT Skull Base to Mid-thigh [...] who have questions please contact the health director of patient care that requested your imaging first. ? Narrative 01/13/2022 1:41 PM EDT EXAMINATION: NM PET CT STANDARD SKULL BASE TO MID-THIGH CLINICAL HISTORY: Colorectal cancer, ass ess treatment response; Gastrointestinal cancer, staging. 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 TECHNIQUE: Following IV injection of 18- uyjfyx-5-xowsrjkbgbam (FDG) a standard uptake of approximately 60 [...] carcinoma. TECHNIQUE: Following IV injection of 18- oqtqhb-0-ffvwbadnkple (FDG) a standard uptake of approximately 60 [...] ho have questions please contact the health director of patient care that requested your imaging first. Fabian Cameron MD IMG PET ORDERABLES POCT Glucose (01/12/2022 1:26 PM EDT) P athologist Signature POC Glucose 98 65 - 199 SRI BURKS mg/dL [facility] Comment: Supplemental ranges: <140 mg/dL before meals <180 mg/dL all other times of the day Specimen Anatomical Collection Method Collection Time Receive d Time (Source) Location / / Volume Laterality Blood 01/12/2022 1:26 PM 2 1:26 EDT PM EDT Fabian Cameron MD POINT OF CARE TEST ORDERABLE S Performing Organization Address City/State/[place] [address] documented in this encounter Visit Diagnoses Diagnosis Malignant neoplasm of lower third of eso phagus Liver metastases Secondary malignant neoplasm of liver documented in this encounter Administered Medications Inactive Administered Medications - up to 3 most recent administrations Medication Order MAR Action Action Date Dose Rate Site fludeoxyglucose (F-18) FDG Given 01/12/2022 1:37 PM 16.3 mCi Right Arm injection 0-20 mCi EDT 0-20 mCi, Intravenous, ONCE PRN, 1 dose, Starting on Stephanie 01/12/22 at 1339, Until Stephanie 01/12/22 at 1337, Per Protocol, Radiology Contrast, Routine documented in this encounter Care Teams Talent Acquisition Specialist Relationship Specialty Start Date End Date Farzaneh Winkler, INVESTMENT BANKING ASSOCIATE PCP - General General Internal Medicine 06/05/[address] [place] [address] documented as of this encounter
--- OUTSIDE RECORDS SUMMARY | 2022-01-19 07:35 | XMS_ITS | Encounter Summary ---
:1950 Author Organization [facility] [place] [address] Care Team Providers Name Role Phone Farzaneh Winkler APRN Primary Care Provider Encounter Details Date Type Department Care Team Description 11/25[facility]20[facility] [address] [phone] Social History Tobacco Use [...] Visit Hematology and Oncology Loan Burton APRN [facility] HEMATOLOGY/[place] [address] 01/19/2022 Infusion Hematology and Oncology Canc eled (F-ARIA CANCEL) 01/25/2022 Hospital Gastroenterology Jose Clark MD [facility] [place]STRO[place]OLOG [place] [address] 01/25/2022 Surgery Gastroenterology Jose Clark, LOLA Yates MD ENDOSCOPY [facility] GASTRO[place] [address] 01/26/2022 Office Visit Hematology and Oncology Fabian Cameron MD [facility] DR HEMATOLOGY/[place] [address] Loan Burton APRN [facility] HEMATOLOGY/[place] [address] 01/26/2022 Infusion Hematology and Oncology 02/02/2022 Office Visit Hematology and Oncology Fabian Cameron MD [facility] DR HEMATOLOGY/[place] [address] 02/02/2022 Infusion Hematology and Oncology 02/22/2022 Telephone Hematology and Oncology Siena Lloyd, MUKUND [facility] DRIVE HEMATOLOGY [place] [address] Scheduled Procedures Name Priority Associated Diagnoses Date/Time EGD, UPPER GI ENDOSCOPY EGD with stent vs 2021 12:00 PM EDT cryotherapy. documented as of this encounter Visit Diagnoses Not on filedocumented in this encounter Care Teams Whiskey Filterer Relationship Specialty Start Date End Date Farzaneh Winkler, LANDSCAPE CREW LEADER PCP - General General Internal Medicine 06/05/[address] [place] [phone] documented as of this encounter
--- OUTSIDE RECORDS SUMMARY | 2022-01-19 07:35 | XMS_ITS | Encounter Summary ---
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 [address] Referral ID Status Reason Start Date Expiration Date Visits V isits Requested Authorized [id number] Closed Specialty 05/17/2021 05/17/2022 1 1 Service Requested Encounter Details Date Type Department Care Team Description 01/12/2022 Hospital Encounter Nuclear Medicine at Fabian Cameron MD [facility] HEMATOLOGY/[place] [address] DEPT. [phone] [place], [place] [address] (Wo rk) Social History Tobacco [...] Visit Hematology and Oncology Loan Burton, NOLAN [facility] HEMATOLOGY/[place] [address] 01/19/2022 Infusion Hematology and Oncology Canc maira (CARLOS MESACEL) 01/25/2022 Hospital Gastroenterology Jose Clark MD [facility] [place] [address] 01/25/2022 Surgery Gastroenterology Jose Clark EGD, LOLA Yates MD ENDOSCOPY [facility] [place] [address] 01/26/2022 Office Visit Hematology and Oncology Fabian Cameron MD [facility] DR HEMATOLOGY/[place] [address] Loan Burton APRN [facility] HEMATOLOGY/[place] [address] 01/26/2022 Infusion Hematology and Oncology 02/02/2022 Office Visit Hematology and Oncology Fabian Cameron MD [facility] DR HEMATOLOGY/[place] [address] 02/02/2022 Infusion Hematology and Oncology 02/22/2022 Telephone Hematology and Oncology Siena Lloyd, MUKUND [facility] DRIVE [place] [address] Scheduled Procedures Name Priority Associated Diagnoses Date/Time [...] (LCSR) esophagus the results Liver metastases section. documented in this encounter Results NM [...] who have questions please contact the health healthcare recruiter that requested your imaging first. ? Narrative 01/13/2022 1:41 PM EDT EXAMINATION: NM PET CT STANDARD SKULL BASE TO MID-THIGH CLINICAL HISTORY: Colorectal cancer, ass ess treatment response; Gastrointestinal cancer, staging. 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 TECHNIQUE: Following IV injection of 18- qmhxxl-4-cztduscsjscx (FDG) a standard uptake of approximately 60 [...] carcinoma. TECHNIQUE: Following IV injection of 18- btnler-1-ktpivupodaof (FDG) a standard uptake of approximately 60 [...] ho have questions please contact the health healthcare recruiter that requested your imaging first. Fabian Cameron MD IMG PET ORDERABLES documented in this encounter Visit Diagnoses Not on filedocumented in this encounter Care Teams Forensic Science Examiner Relationship Specialty Start Date End Date Farzaneh Winkler, EXPANSION ENVELOPE MAKER HAND PCP - General General Internal Medicine 06/05/[address] [place] [phone] documented as of this encounter
--- OUTSIDE RECORDS SUMMARY | 2022-01-19 07:36 | XMS_ITS | Encounter Summary ---
:1950 Author Organization [facility] [place] [address] Care Team Providers Name Role Phone PetersonFarzaneh Daria FRANCISCO Primary Care Provider Encounter Details Date Type Department Care Team Description 11/05/2019 Telephone Thoracic Surgery at [facility] Adrianne Shah, [place] [address] Social History Tobacco Use Types Packs/Day [...] this encounter Miscellaneous Notes Telephone Encounter - Adrianne Shah RN - 11/05/2019 11:03 AM EDT Thoracic Surgery Nursing Post-operative Follow up: Hx: stage IIIA lung adenocarcinoma s/p R VATS pleural bx and pleurX placement for recurrent right sided effusion who is admitted with concerns of clogged pleurX. 6 cycles of TPA/dornase. D/c home on 11/02 w/ PleurX catheter, IV abx followed by OPAT. Patient of Dr. Jose General statement: I'm doing pretty good. Pain: Denies GI: Denies D or Constipation. Respiratory: Little bit of cough, but not much. Scant clear sputum Activity: Walking regularly Integumentary: Denies any skin issues. PleurX: We tried to drain it yesterday and nothing came out. He is draining 1 time daily. IV abx: Spouse giving abx at home with teaching and observation by [facility]. Plan: Mr. Meek will plan to return to Thoracic for follow up on 11/18/19. He is pleased with how well he feels. He will continue to empty the PleurX. I encouraged him to call with any questions regarding PleurX or anything he isn't getting the help he needs. He agreed and I will let Dr. Jose and Judith Thoracic RN know about his output. documented in this encounter Plan of Treatment Upcoming Encounters Date Type Specialty Care Team Description 01/19/2022 Office Visit Hematology and Oncology Loan Burton, NOLAN [facility] HEMATOLOGY/[place] [address] 01/19/2022 Infusion Hematology and Oncology Canc eled (F-ARIA CANCEL) 01/25/2022 Hospital Gastroenterology Jose Clark MD [facility] [place] [address] 01/25/2022 Surgery Gastroenterology Jose Clark UPREENA Yates GI MD [place] ENDOSCOPY [facility] [place] [address] 01/26/2022 Office Visit Hematology and Oncology Fabian Cameron MD [facility] HEMATOLOGY/[place] [address] Loan Burton, NOLAN [facility] HEMATOLOGY/[place] [address] 01/26/2022 Infusion Hematology and Oncology 02/02/2022 Office Visit Hematology and Oncology Fabian Cameron MD [facility] HEMATOLOGY/[place] [address] 02/02/2022 Infusion Hematology and Oncology 02/22/2022 Telephone Hematology and Oncology Siena Lloyd RD [facility] DRIVE [place] [address] Scheduled Procedures Name Priority Associated Diagnoses Date/Time EGD, UPPER GI ENDOSCOPY EGD with stent vs 2021 12:00 PM EDT cryotherapy. documented as of this encounter Visit Diagnoses Not on filedocumented in this encounter Care Teams Real Estate Loan Processor Relationship Specialty Start Date End Date Farzaneh Winkler, LABELING STRATEGIST PCP - General General Internal Medicine 06/05/[address] [place] [phone] documented as of this encounter
--- OUTSIDE RECORDS SUMMARY | 2022-01-19 07:36 | XMS_ITS | Encounter Summary ---
:1950 Author Organization [facility] Address [place] [id number] Care Team Providers Name Role Phone Farzaneh Winkler Daria FRANCISCO Primary Care Provider Reason for Referral Diagnostic Test (Routine) - Pending Review Specialty Diagnoses / Procedures Referred By Contact Refer red To Contact Radiology Diagnoses Primary lung adenocarcinoma, right Fabian Cameron MD Procedures CT Chest w Contrast [facility] DR HEMATOLOGY/[place] [address] Referral ID Status Reason Start Expiration Visits Visits Date Date Requested Authorized [id number] Pending Specialty 12/08/2022 1 1 Review Service 1 Requested onsultation (Routine) - Closed Specialty Diagnoses / Procedures Referred By Contact Refer red To Contact Diagnoses Primary lung adenocarcinoma, right Fabian Cameron MD [facility] R HEMATOLOGY/[place] [address] Referral ID Status Reason Start Date Expiration Date Visits V isits Requested Authorized [id number] Closed Consult, 06/09/2021 12/06/2021 1 1 Test & Treat Non PCP iagnostic Test (Routine) - New Request Specialty Diagnoses / Procedures Referred By Contact Refer red To Contact Radiology Diagnoses Primary lung adenocarcinoma, right Fabian Cameron MD Procedures CT Chest w Contrast [facility] DR HEMATOLOGY/[place] [address] Referral ID Status Reason Start Expiration Visits Visits Date Date Requested Authorized [id number] New Request Specialty 12/08/2022 1 1 Service 1 Requested Reason for Visit Consultation (Routine) - Authorized Specialty Diagnoses / Procedures Referred By Contact Refer red To Contact Hematology and Oncology Diagnoses Personal history of other malignant neoplasm of bronchus and lung personal history of other milgnant neoplasm of bronchus and lung Farzaneh Winkler, [facility] Office Procedures CHEMO ROUSTABOUT CREW LEADER [address] [place] [phone] Fax: Referral ID Status Reason Start Date Expiration Date Visits V isits Requested Authorized [id number] Authorized 05/17/2021 05/17/2022 99 99 Encounter Details Date Type Department Care Team Description 06/09/2021 Office Visit Hematology/Oncology Cadence Cameron MD Primary lung at [facility] adenocarcinoma, right [address] [place], [place] HEMATOLOGY/ONCOLOG [address] Y DEPT. [phone] [place], [place] [address] Social History Tobacco Use Types [...] Sign Reading Time Taken Comments Blood Pressure 128/68 06/09/2021 8:03 AM EST Pulse 108 06/09/2021 8:03 AM EST Temperature 37 ??C (98.6 ??F) 06/09/2021 8:03 AM EST Respiratory Rate 22 06/09/2021 8:03 AM EST Oxygen Saturation 99% 06/09/2021 8:03 AM EST Inhaled Oxygen Concentration - - Weight 133.8 kg (295 lb) 06/09/2021 8:03 AM EST Height 180.4 cm (5' 11.02) 06/09/2021 8:03 AM EST Body Mass Index 41.12 06/09/2021 8:03 AM EST documented in this encounter Progress Notes Fabian Cameron MD - 06/09/2021 8:00 AM EST Subjective: Patient ID: Alin Meek is a 70 y.o. male. HPI Stage IIIa adenocarcinoma of right lung 06/03 Not a surgical candidate EGFR/ALK negative PDL 1+ at 90% Definitive RT with carbo docetaxel 07/12-08/21 achieved a MD radiographically Durvalumab times 1 year completed 09/04/[address] scan 11/19/18 stable with MD Empyema 09/04 w/ corynbacterium No evidence cancer recurrence Lost to f/u in oncology Presents 06/07 for onc f/u Last CT chest stable 09/05 The patient returns to the [facility] in follow-up for his stage IIIa lung cancer. We have not seen him in the medical oncology clinic for over a year now. He was rereferred by his primary care doctor. Generally he is doing well. No evidence of recurrence. He is overdue for a CT scan of his chest. He still has his port in but it is not being used. Patient Active Problem List Diagnosis Code ??? [...] pleural effusion Z87.09 Current Outpatient Medications: ??? acetaminophen (Tylenol) 325 mg Tablet, Take 2 tablets by mouth every 6 hours as needed for Pain.(Patient not taking: Reported on 11/06/2019), Disp: 30 tablet, Rfl: 1 ??? polyethylene glycol (Miralax) 17 gram Powder in Packet, Take 17 g by mouth 2 times daily., Disp:14 each, Rfl: 0 ??? senna (Senokot) 8.6 mg Tablet, Take 2 tablets by mouth every evening. (Patient not taking: Reported on 11/06/2019), Disp: 60 tablet, Rfl: 11 ??? amLODIPine (Norvasc) 10 mg Tablet, Take 10 mg by mouth daily., Disp: , Rfl: ??? budesonide-formoteroL (Symbicort) 160-4.5 mcg/actuation HFA Aerosol Inhaler, Inhale 2 puffs twice a day by inhalation route., Disp: , Rfl: ??? folic acid (Folvite) 1 mg Tablet, Take 1 mg by mouth daily., Disp: , Rfl: ??? fluticasone/vilanterol (BREO ELLIPTA INHL), Inhale 1 Dose into the lungs daily., Disp: , Rfl: ??? UNKNOWN TO PATIENT, Take 1 tablet by mouth daily. Indications: anxiety pill [facility] ordered. Don't know what it is., Disp: , Rfl: ??? cholecalciferol, Vitamin D3, 2,000 unit Tablet, Take 2,000 Units by mouth daily., Disp: , Rfl: ??? b complex vitamins Capsule, Take 1 capsule by mouth daily., Disp: , Rfl: ??? loperamide (IMODIUM A-D) 2 mg Capsule, Take 2 mg [...] times daily as needed., Disp: , Rfl: Allergies Allergen Reactions ??? Lisinopril Angioedema Lips [...] is oriented to person, place, and time. Assessment and Plan: 70-year-old man who presented [...] he shows no evidence of recurrence of his cancer. I see no significant residual toxicity of treatment. We will continue to follow him. He is due for a CAT scan now. We will go ahead and arrange that for him and let him know the results. We will plan to see him back in 6 months for another CAT scan. He needs to continue these until he is 5 years out from his diagnosis. We will make a referral to surgery in [facility] for him for his port removal. documented in this encounter Plan of Treatment Upcoming Encounters Date Type Specialty Care Team Description 01/19/2022 Office Visit Hematology and Oncology Loan Burton, NOLAN [facility] HEMATOLOGY/[place] [address] 01/19/2022 Infusion Hematology and Oncology Can eled (F-ARIA CANCEL) 01/25/2022 Hospital Gastroenterology Jose Clark MD [facility] [place] [address] 01/25/2022 Surgery Gastroenterology Jose Clark UPPE R GI R, MD ENDOSCOPY [facility] [place] [address] 01/26/2022 Office Visit Hematology and Oncology Fabian Cameron MD [facility] HEMATOLOGY/[place] [address] Loan Burton APRN [facility] HEMATOLOGY/[place] [address] 01/26/2022 Infusion Hematology and Oncology 02/02/2022 Office Visit Hematology and Oncology Fabian Cameron MD [facility] HEMATOLOGY/[place] [address] 02/02/2022 Infusion Hematology and Oncology 02/22/2022 Telephone Hematology and Oncology Siena Lloyd RD [facility] [address]IVE [place] [address] Scheduled Orders Name Type Priority Associated Diagnoses Order S chedule CT Chest w Contrast Imaging Routine Primary lung Expected : adenocarcinoma, right 2020, Expires: 12/16/2021 CT Chest w Contrast Imaging Routine Primary lung Expected : adenocarcinoma, right 2021, Expires: 06/09/2022 CBC (with Diff) Lab STAT Primary lung Expected: adenocarcinoma, right 2021, Expires: 06/09/2022 Comprehensive metabolic Lab STAT Primary lung Expe cted: panel (non-fasting) adenocarcinoma, right 12/08/2021, Expires: 06/09/2022 Scheduled Procedures Name Priority Associated Diagnoses Date/Time EGD, UPPER GI ENDOSCOPY EGD with stent vs 2021 12:00 PM EDT cryotherapy. Scheduled Referrals Name Type Priority Associated Diagnoses Order S chedule Referral to Outpatient Referral Routine Primary lung Ordered: General Surgery adenocarcinoma, 1 right documented as of this encounter Visit Diagnoses Diagnosis Primary lung adenocarcinoma, right documented in this encounter Care Teams Beef Cattle Specialist Relationship Specialty Start Date End Date Farzaneh Winkler, ROUSTABOUT CREW LEADER PCP - General General Internal Medicine 06/05/[address] [place] [phone] documented as of this encounter
--- OUTSIDE RECORDS SUMMARY | 2022-01-19 07:36 | XMS_ITS | Encounter Summary ---
:1950 Author Organization [facility] [place] [address] Care Team Providers Name Role Phone Farzaneh Winkler [facility] Primary Care Provider Reason for Referral Physical Therapy (Routine) - Closed Specialty Diagnoses / Procedures Referred By Contact Refer red To Contact Physical Therapy Diagnoses Spinal stenosis of lumbar region with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 Otf Lucas PA Physical Therapy, [facility] [address] [place], [place] [id number] [place] [phone] Fax: Referral ID Status Reason Start Date Expiration Date Visits V isits Requested Authorized [id number] Closed Evaluate and 08/03/2021 01/30/2022 12 12 Treat [facility] PCP Reason for Visit Consultation (Routine) - Closed Specialty Diagnoses / Procedures Referred By Contact Refer red To Contact Neurosurgery Diagnoses Spinal stenosis, lumbar region with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 Farzaneh Winkler, [facility] Neurosurgery 3c FINANCIAL OPERATIONS ANALYST [address] [phone] [place] [address] Referral ID Status Reason Start Date Expiration Date Visits V isits Requested Authorized [id number] Closed Consult, Test 05/18/2021 11/14/2021 1 [facility] PCP Updated and/or Approved Encounter Details Date Type Department Care Team Description 08/03/2021 TH Visit Neurosurgery at [facility] Otf Lucas, Spinal stenosis of (TeleHealth) [facility] lumbar region [place] [address] beckman [phone] [place] [address] Social History Tobacco Use Types Packs/Day Years Used Date Former Smoker Cigarettes 2 1969 - 2015 Smokeless Tobacco: Former User Chew Q uit: 1975 Comments: 2015 quit Alcohol Use Standard Drinks/Week Comments No [...] on file documented as of this encounter Progress Notes Otf Lucas, PA - 08/03/2021 2:15 PM EST Images from the original note were not included. Section of Neurosurgery Initial Consultation Note - Telephone Office Visit 08/03/2021 Farzaneh Winkler, FINANCIAL OPERATIONS ANALYST [address] [place] [address] RE: Alin Meek : [address] Winkler: Thank you for referring your patient Alin Meek to the Neurosurgery Clinic at [facility] for evaluation of lumbar spinal stenosis. Mr. Meek is a pleasant 71 y.o. male with PMH DM (elevated HgA1C per records, value not reported), HTN, COPD, obesity, lung CA, depression, and L4-5 diskectomy (>30 years ago) who presents with lowback pain. Patient reports he cannot stand or walk very long before low back begins to hurt. He estimates a tolerance of about 1-2 minutes with each activity. Symptoms have been progressively getting worse over the last 2-3 years. Initially leaning over a shopping cart was helpful, but no longer. Sitting down alleviates the symptoms. He denies radiating leg pain, but admits to generalized weakness in the legs. Denies focal motor weakness. Denies numbness - feet feel sensitive. Denies bowel or bladder dysfunction. LESI at [facility] which gave about 1 weeks worth of relief. Tried [employer]. Otherwise he has used ibuprofen for pain management. No physical therapy. MRI lumbar spine 10/2020 demonstrates severe L3-4 central canal stenosis due to degenerative changes. 71 yo M with exercise induced low back pain in the setting of L3-4 severe central canal stenosis Patient complains of predominantly low back pain with standing/walking, progressive over time, alleviated with sitting down and initially with forward flexion (leaning over shopping cart). There is a paucity of leg symptoms, but nevertheless symptoms do sound very consistent with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. We discussed the natural course of lumbar stenosis +/-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 with and without treatment. Treatment options were discussed including conservative and more invasive approaches such as injections and surgery. The typical stepwise approach to treatment was discussed and rationale for beginning less invasive and moving onto more invasive therapies for failure of conservative management. To this end I have recommended a trial of physical therapy before considering surgical treatment which which analy place him at increased risk of complications due to his h/o COPD, morbid obesity, andDM. He has already had a LESI which gave him about a weeks worth of relief. We will send a PT referral to the location of his choosing and will follow up in 2-3 months to evaluate his progress; sooner on an as needed basis. PAST MEDICAL HISTORY: Patient Active Problem List Diagnosis ??? Hx of pleural effusion ??? Lung cancer ??? Pain in joint ??? Low back pain ??? Benign essential hypertension Overview Note: No comments entered for problem. ??? Chronic obstructive lung disease Overview Note: No comments entered for problem. ??? Morbid obesity Overview Note: No comments entered for problem. ??? Primary malignant neoplasm of lung Overview Note: No comments entered for problem. ??? Hypothyroidism due to drugs ??? Primary lung adenocarcinoma, right Past Medical History: Diagnosis Date ??? Adenocarcinoma, lung, right ??? COPD (chronic obstructive pulmonary disease) ??? DJD (degenerative joint disease) ??? HTN (hypertension), benign ??? PAC (premature atrial contraction) PAST SURGICAL HISTORY: Past Surgical History: Procedure Laterality Date ??? LUMBAR DISC SURGERY ??? PRO BRONCHOSCOPY, DIAGNOSTIC N/A 09/05/2019 BRONCHOSCOPY, DIAGNOSTIC (WRVU 2.78) performed by Stan Bernal MD at [facility] OR ? ? PRO INJECTION ANES AGENT &/ STEROID INTERCOSTAL NERVE EA ADDL LEVEL Right 09/05/2019 NERVE BLOCK, INTERCOSTAL NERVE, MULTIPLE (WRVU 1.68) performed by Stan Bernal MD at [facility] OR ??? PRO INSERTION OF INDWELLING TUNNELED PLEURAL CATHETER Right 09/05/2019 INSERTION INDWELLING PLEURAL CATHETER W\CUFF (WRVU 4.17) performed by Stan Bernal MD at [facility] OR ??? PRO THORACOSCOPY WITH BIOPSY OF PLEURA Right 09/05/2019 THORACOSCOPY; WITH BIOPSY(IES) OF PLEURA (WRVU 4.58) performed by Stan Bernal MD at [facility] OR ??? SUBTOTAL COLECTOMY 05/23/2016 ??? TOTAL KNEE ARTHROPLASTY Right ??? UMBILICAL HERNIA REPAIR SOCIAL HISTORY: Social History Tobacco Use ??? Smoking status: Former Smoker Packs/day: 2.00 Types: Cigarettes Start date: 1969 Quit date: 2016 Years since quittin.1 ??? Smokeless tobacco: Former User Types: Chew Quit date: 1974 ??? Tobacco comment: 2016 quit Vaping Use ??? Vaping Use: Never used Substance Use Topics ??? Alcohol use: No Comment: usd to drink heavily ( 12 pck/day) quit 2016 ??? Drug use: No FAMILY HISTORY: Family History Problem Relation Age of Onset ??? Cancer Brother throat CURRENT MEDICATIONS: ??? sertraline (ZOLOFT) 100 mg Tablet ??? diclofenac sodium (Diclo Gel) 1 % Kit ??? metFORMIN (Glucophage) 500 mg Tablet ??? sertraline (Zoloft) 50 mg Tablet ??? senna (Senokot) 8.6 mg Tablet ??? amLODIPine (Norvasc) 10 mg Tablet ??? budesonide-formoteroL (Symbicort) 160-4.5 mcg/actuation HFA Aerosol Inhaler ??? fluticasone/vilanterol (BREO ELLIPTA INHL) ??? cholecalciferol, Vitamin D3, 2,000 unit Tablet ??? b complex vitamins Capsule ??? loperamide (Imodium A-D) 2 mg Capsule ??? losartan (COZAAR) 25 mg Tablet ??? chlorthalidone (HYGROTEN) 25 mg Tablet ??? ALBUTEROL INHL ??? triamcinolone (KENALOG) 0.1 % Cream ALLERGIES: Allergies Allergen Reactions ??? Lisinopril Angioedema Lips got swollen Other reaction(s): Lip swelling REVIEW OF SYSTEMS: Per HPI It was my pleasure to have consulted with Mr. Meek today. Thank you again for your referral. Please don't hesitate to contact me if you have any further questions. Patient verbally consents to this telephone visit and understands that this visit may be billed, similar to a clinic office visit. I provided care to the patient today via telephone call. The total time associated with this visit was 45 minutes. Sincerely, Otf Lucas PA-C, MS Physician [employer] Director [facility] Department of Neurosurgery [address] [place] [phone] CC: Farzaneh Winkler APRN CC: Farzaneh Winkler APRN [address] [place] [address] This message is confidential, intended only for the named recipient(s) and may contain information that is privileged or exempt from disclosure under applicable law. If you are not the intended recipient(s), you are notified that the dissemination, distribution or copying of this information is strictly prohibited. If you received this message in error, please notify the sender then delete this message. documented in this encounter Plan of Treatment Upcoming Encounters Date Type Specialty Care Team Description 01/19/2022 Office Visit Hematology and Oncology Loan Burton APRN [facility] HEMATOLOGY/[place] [address] 01/19/2022 Infusion Hematology and Oncology Canc eled (F-ARIA CANCEL) 01/25/2022 Hospital Gastroenterology Jose Clark MD [facility] GASTROENTEROLOG [place] [address] 01/25/2022 Surgery Gastroenterology Jose Clark UPPE R GI R, MD ENDOSCOPY [facility] [place]STROENTER[place] [address] 01/26/2022 Office Visit Hematology and Oncology Fabian Cameron MD [facility] HEMATOLOGY/[place] [address] Loan Burton APRN [facility] HEMATOLOGY/[place] [address] 01/26/2022 Infusion Hematology and Oncology 02/02/2022 Office Visit Hematology and Oncology Fabian Cameron MD [facility] HEMATOLOGY/[place] [address] 02/02/2022 Infusion Hematology and Oncology 02/22/2022 Telephone Hematology and Oncology Siena Lloyd RD [facility] HEMATOLOGY [place] [address] Scheduled Procedures Name Priority Associated Diagnoses Date/Time EGD, UPPER GI ENDOSCOPY EGD with stent vs 2021 12:00 PM EDT cryotherapy. Scheduled Referrals Name Type Priority Associated Diagnoses Order S chedule Referral to Outpatient Referral Routine Spinal stenosis of Or dered: Physical Therapy lumbar region with 08/03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 documented as of this encounter Visit Diagnoses Diagnosis Spinal stenosis of lumbar region with ne urogenic claudication Spinal stenosis, lumbar region, with matheus rogenic claudication documented in this encounter Care Teams Merchant Tailor Relationship Specialty Start Date End Date Farzaneh Winkler, FINANCIAL OPERATIONS ANALYST PCP - General General Internal Medicine 06/05/[address] [place] [phone] documented as of this encounter
--- OUTSIDE RECORDS SUMMARY | 2022-01-19 07:36 | XMS_ITS | Encounter Summary ---
:1950 Author Organization [facility] [address] Care Team Providers Name Role Phone PetersonFarzaneh Daria FRANCISCO Primary Care Provider Reason for Referral Diagnostic Test (Routine) - Closed Specialty Diagnoses / Procedures Referred By Contact Refer red To Contact Radiology Diagnoses Pleural empyema Belen Burns PA [facility] Rad Ct Scan Procedures CT Chest w Contrast [facility] [place] [address] [place] [address] Referral ID Status Reason Start Date Expiration Date Visits V isits Requested Authorized [id number] Closed Specialty 11/18/2019 05/19/2021 1 1 Service Requested Reason for Visit Diagnostic Test (Routine) - Closed Specialty Diagnoses / Procedures Referred By Contact Refer red To Contact Radiology Diagnoses Pleural empyema Belen Burns PA [facility] Rad Ct Scan Procedures CT Chest w Contrast [facility] [place] [address] [place] [address] Referral ID Status Reason Start Date Expiration Date Visits V isits Requested Authorized [id number] Closed Specialty 11/18/2019 05/19/2021 1 1 Service Requested Encounter Details Date Type Department Care Team Description 12/02/[address] Scan at [facility] Otf Jose, Pleural empyema [facility] [place] [address] THORACIC SURGERY [phone] [place], [place] [address] Social History Tobacco Use Types [...] Sig Dispensed Refills Start Date End Date senna (Senokot) 8.6 mg Take 2 tablets by 60 tablet 11 2019 Tablet mouth every evening. amLODIPine (Norvasc) 10 Take 10 mg by mouth 0 mg Tablet daily. budesonide-formoteroL Inhale 2 puffs twice 0 07/19 (Symbicort) 160-4.5 a day by inhalation mcg/actuation HFA Aerosol route. Inhaler fluticasone/vilanterol Inhale 1 Dose into 0 (BREO ELLIPTA INHL) the lungs daily. cholecalciferol, Vitamin Take 2,000 Units by 0 D3, 2,000 unit Tablet mouth daily. loperamide (Imodium A-D) Take 2 mg by mouth 4 0 2 mg Capsule times daily as needed for Diarrhea. losartan (COZAAR) 25 mg Take 25 mg by mouth 0 Tablet daily. chlorthalidone (HYGROTEN) Take 25 mg by mouth 0 25 mg Tablet daily. ALBUTEROL INHL Inhale into the 0 lungs every 4 hours as needed. triamcinolone (KENALOG) Apply topically 2 0 0.1 % Cream times daily as needed. folic acid (Folvite) 1 mg Take 1 mg by mouth 0 06/09/2021 Tablet daily. b complex vitamins Take 1 capsule by 0 12/29/2021 Capsule mouth daily. documented as of this encounter Plan of Treatment Upcoming Encounters Date Type Specialty Care Team Description 01/19/2022 Office Visit Hematology and Oncology Loan Burton APRN [facility] HEMATOLOGY/[place] [address] 01/19/2022 Infusion Hematology and Oncology Canc eled (F-ARIA CANCEL) 01/25/2022 Hospital Gastroenterology Jose Clark MD [facility] [place] [address] 01/25/2022 Surgery Gastroenterology Jose Clark UPPE R GI R, MD ENDOSCOPY [facility] [place] [address] 01/26/2022 Office Visit Hematology and Oncology Fabian Cameron MD [facility] HEMATOLOGY/[place] [address] Loan Burton APRN [facility] HEMATOLOGY/[place] [address] 01/26/2022 Infusion Hematology and Oncology 02/02/2022 Office Visit Hematology and Oncology Fabian Cameron MD [facility] HEMATOLOGY/[place] [address] 02/02/2022 Infusion Hematology and Oncology 02/22/2022 Telephone Hematology and Oncology Siena Lloyd RD [facility] DRIVE [place] [address] Scheduled Procedures Name Priority Associated Diagnoses Date/Time EGD, UPPER GI ENDOSCOPY EGD with stent vs 2021 12:00 PM EDT cryotherapy. documented as of this encounter Procedures Procedure Name Priority Date/Time Associated Diagnosis Comme nts CT CHEST W CONTRAST Routine 12/02/2019 12:55 PM Pleural empyem a Results for this EDT procedure are i n the results section. documented in this encounter Results CT Chest w Contrast (12/02/2019 12:55 PM EDT) Anatomical Region Laterality Modality Chest Computed Tomography Specimen (Source) Anatomical Location Collection Method / Collectio n Time Received Time / Laterality Volume Impressions 12/02/2019 1:31 PM EDT 1. ??Slightly decreased pleural fluid and minimal residual scattered air post right Pleurx removal. 2. ??Stable post treatment change/fibros is in right lung. 3. ??Unchanged right adrenal adenomas. Thank you for letting us participate in the care of this patient. For questions regarding this report, please contact e number below. ? Narrative 12/02/2019 1:31 PM EDT EXAMINATION: CT CHEST W CONTRAST CLINICAL HISTORY: Pleural effusion h/o stage IIIA lung cancer s/p pleurx c/ b empyema tx w tpa/dornase, pleurx removed. please eval effusion/changes TECHNIQUE: 3.75 mm thick axial contiguou s sections were obtained through the chest via helical acquisition after the intravenous administration of 60 cc of Omnipaque-350. Thin-section reconstructi ons as well as coronal and sagittal reformatted images were generated. COMPARISON: 10/31/2019. FINDINGS: Pulmonary parenchyma: Dense parenchymal fibrosis and volume loss in the right lung, consistent with post treatment/rad iation change, as before. No new findings in either lung. Airways: No endobronchial opacity. Uncha nged traction bronchiectasis on the right. Pleura: Pleurx removed. Slightly decreas ed pleural fluid. Minimal residual scattered pockets of air. Lymph nodes:No interval lymph node enlar gement. Heart, pericardium, and great vessels: N o new findings. Other mediastinal structures: No new fin dings. Lower neck: No new findings. Upper abdomen: Unchanged right adrenal n odules. No new findings. Body wall soft tissues: No new findings. Skeletal structures: No new findings. Procedure Note Temitope Guerrier MD - 12/02/2019Formatt ing of this note might be different from the original. EXAMINATION: CT CHEST W CONTRAST CLINICAL HISTORY: Pleural effusion h/o stage IIIA lung cancer s/p pleurx c/ b empyema tx w tpa/dornase, pleurx removed. please eval effusion/changes TECHNIQUE: 3.75 mm thick axial contiguou s sections were obtained through the chest via helical acquisition after the intravenous administration of 60 cc of Omnipaque-350. Thin-section reconstructi ons as well as coronal and sagittal reformatted images were generated. COMPARISON: 10/31/2019. FINDINGS: Pulmonary parenchyma: Dense parenchymal fibrosis and volume loss in the right lung, consistent with post treatment/rad iation change, as before. No new findings in either lung. Airways: No endobronchial opacity. Uncha nged traction bronchiectasis on the right. Pleura: Pleurx removed. Slightly decreas ed pleural fluid. Minimal residual scattered pockets of air. Lymph nodes:No interval lymph node enlar gement. Heart, pericardium, and great vessels: N o new findings. Other mediastinal structures: No new fin dings. Lower neck: No new findings. Upper abdomen: Unchanged right adrenal n odules. No new findings. Body wall soft tissues: No new findings. Skeletal structures: No new findings. IMPRESSION 1. Slightly decreased pleural fluid and minimal residual scattered air post right Pleurx removal. 2. Stable post treatment change/fibrosis in right lung. 3. Unchanged right adrenal adenomas. Thank you for letting us participate in the care of this patient. For questions regarding this report, please contact e number below. Electronically signed by: Temitope Guerrier [facility] ([phone]), at 12/02/2019 1:31 PM Otf Jose MD IMG CT ORDERABLES documented in this encounter Visit Diagnoses Diagnosis Pleural empyema Empyema without mention of fistula documented in this encounter Administered Medications Inactive Administered Medications - up to 3 most recent administrations Medication Order MAR Action Action Date Dose Rate Site alteplase (CATHFLO) injection 2 mg Given 12/02/2019 12:50 PM EDT 2 mg 2 mg, INTRA-CATHETER, ONCE, 1 dose, On e 12/02/19 at 1300, Instill into occluded lumen as directed., Routine iohexoL (OMNIPAQUE) 350 mg/mL solution 0-200 Given 12:50 PM EDT 60 mLs mL 0-200 mL, Intravenous, ONCE PRN, 1 dose, Starting on Sun12/02/19 at 1223, Until Sun12/02/19 at 1250, Per Protocol, Warning Vesicant/Irritant Medication , Radiology Contrast, Routine documented in this encounter Care Teams Packing And Stamping Machine Operator Relationship Specialty Start Date End Date Farzaneh Winkler, BARREL POLISHER INSIDE PCP - General General Internal Medicine 06/05/[address] [place] [address] documented as of this encounter
--- OUTSIDE RECORDS SUMMARY | 2022-01-19 07:36 | XMS_ITS | Encounter Summary ---
:1950 [place] [address] Care Team Providers Name Role Phone Farzaneh Winkler PAPER CONE MACHINE TENDER Primary Care Provider Encounter Details Date Type Department Care Team Description 11/11/2020 Ancillary Procedure Radiology Library at [place] Winkler, [facility] PAPER CONE MACHINE TENDER [address] [address] [place] [address] [phone] Social History Tobacco Use Types Packs/Day Years [...] Office Visit Hematology and Oncology Loan Burton, PAPER CONE MACHINE TENDER [facility] HEMATOLOGY/[place] [address] 01/19/2022 Infusion Hematology and Oncology Canc eled (F-ARIA CANCEL) 01/25/2022 Hospital Gastroenterology Jose Clark MD [facility] [place] [address] 01/25/2022 Surgery Gastroenterology Jose Clark EGD, LOLA Yates MD ENDOSCOPY [facility] [place] [address] 01/26/2022 Office Visit Hematology and Oncology Fabian Cameron MD [facility] DR HEMATOLOGY/[place] [address] Loan Burton APRN [facility] HEMATOLOGY/[place] [address] 01/26/2022 Infusion Hematology and Oncology 02/02/2022 Office Visit Hematology and Oncology Fabian Cameron MD [facility] DR HEMATOLOGY/[place] [address] 02/02/2022 Infusion Hematology and Oncology 02/22/2022 Telephone Hematology and Oncology Siena Lloyd, RD [facility] DRIVE [place] [address] Scheduled Procedures Name Priority Associated Diagnoses Date/Time EGD, UPPER GI ENDOSCOPY EGD with stent vs 2021 12:00 PM EDT cryotherapy. documented as of this encounter Procedures Procedure Name Priority Date/Time Associated Diagnosis Comme nts FILM LIBRARY Routine 11/11/2020 12:00 AM Results for this STORAGE ONLY MR EDT procedure ar e in SPINE the results section. documented in this encounter Results Film Library- Storage Only MR Spine (11/11/2020 12:00 AM EDT) Specimen (Source) Anatomical Location Collection Method / Collectio n Time Received Time / Laterality Volume Narrative DH RAD - 07/27/2021 2:13 PM EST This exam is auto-finalizing. It's purpo se is for storage only. Farzaneh Winkler APRN [facility] FILM LIBRARY ORDERABLES Performing Organization Address City/State/ZIP Code Phon e Number [place], [place] documented in this encounter Visit Diagnoses Not on filedocumented in this encounter Care Teams 8Th Grade Teacher Relationship Specialty Start Date End Date Farzaneh Winkler APRN PCP - General General Internal Medicine 06/05/[address] [place] [address] documented as of this encounter
--- OUTSIDE RECORDS SUMMARY | 2022-01-19 07:36 | XMS_ITS | Encounter Summary ---
:1950 Author Organization [facility] [place] [address] Care Team Providers Name Role Phone Farzaneh Winkler APRN Primary Care Provider Encounter Details Date Type Department Care Team Description 11/06/2019 Hospital Encounter XRay at [facility] [address] [place] [address] Social History Tobacco Use Types Packs/Day [...] 160-4.5 a day by inhalation mcg/actuation HFA route. Aerosol Inhaler fluticasone/vilanterol Inhale 1 Dose into 0 (BREO ELLIPTA INHL) the lungs daily. cholecalciferol, Vitamin Take 2,000 Units by 0 D3, 2,000 unit Tablet mouth daily. loperamide (Imodium A-D) Take 2 mg by mouth 4 0 2 mg Capsule times daily as needed for Diarrhea. losartan (COZAAR) 25 mg Take 25 mg by mouth 0 Tablet daily. chlorthalidone Take 25 mg by mouth 0 (HYGROTEN) 25 mg Tablet daily. ALBUTEROL INHL Inhale into the 0 lungs every 4 hours as needed. triamcinolone (KENALOG) Apply topically 2 0 0.1 % Cream times daily as needed. amoxicillin (AMOXIL) 500 Take 1 tablet by 54 tablet 0 11/0511/24/2019 mg TabletIndications: mouth 3 times daily Empyema of pleura for 18 days. docusate sodium (Colace) Take 1 capsule by 20 capsule 0 10/1611/13/2019 100 mg Capsule mouth 3 times daily for 10 days. folic acid (Folvite) 1 Take 1 mg by mouth 0 06/09/2021 mg Tablet daily. b complex vitamins Take 1 capsule by 0 12/29/2021 Capsule mouth daily. documented as of this encounter Plan of Treatment Upcoming Encounters Date Type Specialty Care Team Description 01/19/2022 Office Visit Hematology and Oncology Loan Burton, NOLAN [facility] HEMATOLOGY/[place] [address] 01/19/2022 Infusion Hematology and Oncology Canc eled (F-ARIA CANCEL) 01/25/2022 Hospital Gastroenterology Jose Clark MD [facility] [place] [address] 01/25/2022 Surgery Gastroenterology Jose Clark UPPE R GI R, MD ENDOSCOPY [facility] [place] [address] 01/26/2022 Office Visit Hematology and Oncology Fabian Cameron MD [facility] HEMATOLOGY/[place] [address] Loan Burton APRN [facility] HEMATOLOGY/[place] [address] 01/26/2022 Infusion Hematology and Oncology 02/02/2022 Office Visit Hematology and Oncology Fabian Cameron MD [facility] HEMATOLOGY/[place] [address] 02/02/2022 Infusion Hematology and Oncology 02/22/2022 Telephone Hematology and Oncology Siena Lloyd RD [facility] DRIVE [place] [address] Scheduled Procedures Name Priority Associated Diagnoses Date/Time EGD, UPPER GI ENDOSCOPY EGD with stent vs 2021 12:00 PM EDT cryotherapy. documented as of this encounter Visit Diagnoses Not on filedocumented in this encounter Care Teams Filenet Architect Relationship Specialty Start Date End Date Farzaneh Winkler APRN PCP - General General Internal Medicine 06/05/[address] [place] [address] documented as of this encounter
--- OUTSIDE RECORDS SUMMARY | 2022-01-19 07:36 | XMS_ITS | Encounter Summary ---
:1950 Author Organization [facility] [place] [address] Care Team Providers Name Role Phone PetersonRamónrubio Huff APRN Primary Care Provider Reason for Visit Reason Onset Date Comments Other 11/11/2019 call to check in Encounter Details Date Type Department Care Team Description 11/11/2019 Telephone Thoracic Surgery at [facility] (call to check in [facility] RN ) [place] [address] Social History Tobacco Use Types Packs/Day [...] this encounter Miscellaneous Notes Telephone Encounter - [facility] Ervin RN - 11/11/2019 12:16 PM EDT TC to Mr. Meek Unable to reach Mr. Meek, unable to leave a message to check in since PleurX catheter removed 11/06/19 and changed to oral antibiotics per ID. documented in this encounter Plan of Treatment Upcoming Encounters Date Type Specialty Care Team Description 01/19/2022 Office Visit Hematology and Oncology Loan Burton APRN [facility] HEMATOLOGY/[place] [address] 01/19/2022 Infusion Hematology and Oncology Canc eled (F-ARIA CANCEL) 01/25/2022 Hospital Gastroenterology Jose Clark MD [facility] GASTROENTEROLOG [place] [address] 01/25/2022 Surgery Gastroenterology Jose Clark UPPE R GI R, MD ENDOSCOPY [facility] GASTROENTEROLOG [place] [address] 01/26/2022 Office Visit Hematology and Oncology Fabian Cameron MD [facility] HEMATOLOGY/[place] [address] Loan Burton APRN [facility] HEMATOLOGY/[place] [address] 01/26/2022 Infusion Hematology and Oncology 02/02/2022 Office Visit Hematology and Oncology Fabian Cameron MD [facility] HEMATOLOGY/[place] [address] 02/02/2022 Infusion Hematology and Oncology 02/22/2022 Telephone Hematology and Oncology Siena Lloyd RD [facility] HEMATOLOGY [place] [address] Scheduled Procedures Name Priority Associated Diagnoses Date/Time EGD, UPPER GI ENDOSCOPY EGD with stent vs 2021 12:00 PM EDT cryotherapy. documented as of this encounter Visit Diagnoses Not on filedocumented in this encounter Care Teams Brass Buffer Relationship Specialty Start Date End Date Farzaneh Winkler, NOLAN PCP - General General Internal Medicine 06/05/[address] [place], [place] [id number] documented as of this encounter
--- OUTSIDE RECORDS SUMMARY | 2022-01-19 07:36 | XMS_ITS | Encounter Summary ---
:1950 Author Organization [place] [address] Care Team Providers Name Role Phone Peterson Farzaneh Huff APRN Primary Care Provider Encounter Details Date Type Department Care Team Description 02/10/2021 Clinical Support Dermatology at [facility], Flakito arredondo [address] cell [address] MD [place] carcinoma, ear, [address] [facility] [address] [facility] [phone] [place] [address] Social History Tobacco Use Types Packs/Day Years [...] documented as of this encounter Progress Notes Carol Roberto LPN - 02/10/2021 10:15 AM EDT Mohs consultation and preoperative note (H&P) Patient Name: Alin Meek Age: 70 y.o. Date of : 1950 Today's Date: 02/10/2021 REFERRING PROVIDER: Phuong Hensley MD CC: Mohs micrographic surgery for treatment of a cutaneous tumor HPI: Alin Meek is a 70 y.o. male presenting for biopsy-proven Basal Cell Carcinoma,micronodular,location on the Right Scapha.. The dermatologic preoperative information sheet was reviewed with pertinent positive and negative as below. DERMATOLOGIC PRE-OPERATIVE EVALUATION AND REVIEW OF SYSTEMS Had his Vaccine History of Mohs surgery- No Pacemaker/Defibrillator-No Joint replacement or other implantable devices (e.g. Cochlear implant)-Yes Right Knee Replacement Do you take a blood thinner-No History of organ transplant-No History of artificial valve or stroke-No History of liver disease or bleeding disorder-No Do you have any medical problems that may affect your upcoming surgery-COPD,Bad back Do you have any concerns regarding your upcoming surgery-No We ask patients to discontinue Fish oil/Multivitamin/Vit E/?? supplements and natural medicines not prescribed by a physician 1 week prior to surgery. SOCIAL HISTORY: Makes Own Decisions Yes Hearing aid or other devices: No Relevant travel history or future plans: No Tobacco use (amount per day, type of tobacco.):No Do you have any physical limitations that may affect your surgery- Unable to walk long distances PAST MEDICAL HISTORY Past medical history reviewed PAST SURGICAL HISTORY Past surgical history reviewed ALLERGIES: Allergies reviewed MEDICATIONS: Medications reviewed documented in this encounter Plan of Treatment Upcoming Encounters Date Type Specialty Care Team Description 01/19/2022 Office Visit Hematology and Oncology Loan Burton, NOLAN [facility] HEMATOLOGY/[place] [address] 01/19/2022 Infusion Hematology and Oncology Canc eled (F-ARIA CANCEL) 01/25/2022 Hospital Gastroenterology Jose Clark MD [facility] GASTROENTER[place] [address] 01/25/2022 Surgery Gastroenterology Jose Clark, LOLA Yates MD ENDOSCOPY [facility] DR GASTROENTEROLOG [place] [address] 01/26/2022 Office Visit Hematology and Oncology Fabian Cameron MD [facility] HEMATOLOGY/[place] [address] Loan Burton APRN [facility] HEMATOLOGY/[place] [address] 01/26/2022 Infusion Hematology and Oncology 02/02/2022 Office Visit Hematology and Oncology Fabian Cameron MD [facility] HEMATOLOGY/[place] [address] 02/02/2022 Infusion Hematology and Oncology 02/22/2022 Telephone Hematology and Oncology Siena Llyod RD [facility] DRIVE HEMATOLOGY [place] [address] Scheduled Procedures Name Priority Associated Diagnoses Date/Time EGD, UPPER GI ENDOSCOPY EGD with stent vs 2021 12:00 PM EDT cryotherapy. documented as of this encounter Visit Diagnoses Diagnosis Basal cell carcinoma, ear, right documented in this encounter Care Teams Digital Proofing And Platemaker Relationship Specialty Start Date End Date Farzaneh Winkler APRN PCP - General General Internal Medicine 06/05/[address] [place] [id number] documented as of this encounter
--- OUTSIDE RECORDS SUMMARY | 2022-01-19 07:36 | XMS_ITS | Encounter Summary ---
:1950 Author Organization [facility] [place] [address] Care Team Providers Name Role Phone PetersonRamónrubio Huff APRN Primary Care Provider Reason for Referral Diagnostic Test (Routine) - Closed Specialty Diagnoses / Procedures Referred By Contact Refer red To Contact Radiology Diagnoses Pleural empyema Belen Burns PA [facility] Rad Ct Scan Procedures CT Chest w Contrast [facility] [place] [address] [place] [address] Referral ID Status Reason Start Date Expiration Date Visits V isits Requested Authorized [id number] Closed Specialty 11/18/2019 05/19/2021 1 1 Service Requested Reason for Visit Reason Comments Lung Cancer Effusion Encounter Details Date Type Department Care Team Description 11/18/2019 Office Visit Thoracic Surgery at Candice Tolliver, Prim pilar lung adenocarcinoma, right[place] [facility] [place]; [facility] Mor bid obesity; Drive Pleural empyema [place], [place] THORACIC SURGERY [phone] [place] [address] Social History Tobacco Use Types [...] Sign Reading Time Taken Comments Blood Pressure 151/89 11/18/2019 11:18 AM EDT Pulse 93 11/18/2019 11:18 AM EDT Temperature 36.8 ??C (98.3 ??F) 11/18/2019 11:18 AM EDT Respiratory Rate 20 11/18/2019 11:18 AM EDT Oxygen Saturation 97% 11/18/2019 11:18 AM EDT Inhaled Oxygen Concentration - - Weight 137.3 kg (302 lb 12.8 oz) 11/18/2019 11:18 AM EDT Height 182.9 cm (6') 11/18/2019 11:18 AM EDT Body Mass Index 41.07 11/18/2019 11:18 AM EDT documented in this encounter Patient Instructions Patient InstructionsAdrianne Shah RN - 11/18/2019 11:45 AM EDT Thank you for seeing Dr. Tolliver. He will have you come back on December [address] scan of your chest with contrast and he will see you in his clinic after the CT scan. Complete your course of antibiotics as ordered. Please continue exercising daily for 30 minutes each day. Please follow up with your primary care provider as scheduled. Call for cough, fever, chills, shortness of breath or any worsening of your symptoms. Please call Thoracic Surgery at with any questions or concerns. documented in this encounter Progress Notes Karma Oneill LPN - 11/18/2019 11:45 AM EDT Patient Guidelines for Self-Care after PICC (Peripherally Inserted Central Catheter) Removal Your PICC was removed on 11/06/19___at 1200____ An antibiotic ointment was applied to the insertion site (where the PICC went into your skin). Betadine ointment was used (a dark reddish brown color, and should not be confused with blood) _X___Bacitracin ointment was used. (a clear ointment). The nurse applied gauze and a transparent ( see-through) dressing over the insertion site. To help your PICC insertion site heal: *Avoid heavy lifting (for example, no more than a gallon of milk) or vigorous activities for 24 hours * Keep the dressing over the insertion site dry for 24 hours * You can remove the dressing after 24 hours. Call your doctor after your PICC has been removed if you experience any of the following: * Fever (temperature over 100.1F) * Chills * Drainage from the insertion site ( including bleeding). Remember the Betadine antibiotic ointment, if used, was to protect your skin when the PICC was removed, can look like blood! *Redness, warmth, pain, swelling, or a pink/red streak going up your arm *A knot at the insertion site or anywhere in the arm *If bleeding should occur, hold firm pressure for 3-5 minutes. Do not remove the dressing that the nurse put on when the PICC was removed.. If needed, apply another dressing over the first dressing. If bleeding does not stop, call or seek medical attention. Candice Tolliver MD - 11/18/2019 11:45 AM EDT Thoracic Surgery Attending Outpatient Follow Up Note MD Belen Cast PA-C [place] [id number] FAX: Pre Op Dx: FDG avid right pleural based??nodules??and loculated effusion with h/o stage IIIA lung cancer ?? Post Op Dx: h/o stage IIIA lung cancer, recurrent effusion and trapped lung ?? Procedure (09/05/2019): bronchoscopy, R VATS pleural biopsies and pleurx catheter placement ?? Pathology (09/05/2019): Pleural fluid: A few atypical epithelioid cells are noted; the possibility of neoplasia is not absolutely excluded. RIGHT posterior pleura - Fibrous pleurisy. Inferior RIGHT pleural biopsy - Fibrous and focal fibrinous pleurisy ?? Complications: empyema ?? Treatment: intrapleural fibrinolytics, IV abx, removal of pleurx ?? HPI: Alin Meek is a 69 y.o. 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 He was discharged home on HD7 on continued IV vancomycin via PICC. He was evaluated by us on 11/05 and his pleurx was removed and ID discontinued his PICC and transitioned him to Amoxicillin 500mg PO TID x 18 days. He presents today for follow up with repeat imaging. He reports he is doing well and has no complaints. His breathing feels slightly better and he only has a very occasional cough that is productive of clear sputum. He denies f/c/n/v/CP. He continues to take his abx as prescribed without difficulty. Medications: Current Outpatient Medications on File Prior to Visit Medication Sig Dispense Refill ??? amoxicillin (AMOXIL) 500 mg Tablet Take 1 tablet by mouth 3 times daily for 18 days. 54 tablet 0 ??? polyethylene glycol (Miralax) 17 gram Powder in Packet Take 17 g by mouth 2 times daily. 14 each0 ??? amLODIPine (Norvasc) 10 mg Tablet Take 10 mg by mouth daily. ??? budesonide-formoteroL (Symbicort) 160-4.5 mcg/actuation HFA Aerosol Inhaler Inhale 2 puffs twicea day by inhalation route. ??? folic acid (Folvite) 1 mg Tablet Take 1 mg by mouth daily. ??? fluticasone/vilanterol (BREO ELLIPTA INHL) Inhale 1 Dose into the lungs daily. ??? UNKNOWN TO PATIENT Take 1 tablet by mouth daily. Indications: anxiety pill [facility] ordered. Don't know what it is. ??? cholecalciferol, Vitamin D3, 2,000 unit Tablet Take 2,000 Units by mouth daily. ??? b complex vitamins Capsule Take 1 capsule by mouth daily. ??? loperamide (IMODIUM A-D) 2 mg Capsule Take 2 mg [...] Apply topically 2 times daily as needed. ??? acetaminophen (Tylenol) 325 mg Tablet Take 2 tablets by mouth every 6 hours as needed for Pain. (Patient not taking: Reported on 11/06/2019) 30 tablet 1 ??? senna (Senokot) 8.6 mg Tablet Take 2 tablets by mouth every evening. (Patient not taking: Reported on 11/06/2019) 60 tablet 11 No current facility-administered medications on file prior to visit. Physical Exam: BP 151/89 (Patient Position: Sitting) Pulse 93 Temp 36.8 ??C (98.3 ??F) (Temporal) Resp 20 Ht 182.9 cm (6') Wt (!) 137.3 kg (302 lb 12.8 oz) SpO2 97% BMI 41.07 kg/m?? General Appearance: Alert, cooperative, no distress, appears stated age Nk: Supple, symmetrical, trachea midline, no palpable cervical adenopathy Lungs: Clear to auscultation left, absent breath sounds right base and decreased right mid, clear right upper field. respirations unlabored, no wheezes, crackles or ronchi. Heart: Regular rate and rhythm, S1 and S2 normal, no murmur, rub, or gallop Abdomen: Obese, soft, non-tender Extremities: Extremities normal, atraumatic, no cyanosis or edema Wound/Incision: Right pleurx site clean, dry, intact, with evidence of good wound healing Imaging: I have independently visualized the following studies: CXR (11/18/2019): Similar appearance to the post Pleurx changes in the RIGHT hemithorax. Slight increased aeration in the RIGHT midlung field. No evidence for pneumothorax. Persistent short air-fluid level at the RIGHT lung base. Assessment: Alin Meek is a 69 y.o. male with a h/o stage IIIA lung adenocarcinoma, s/p R VATS pleural biopsies and pleurX catheter placement for benign recurrent pleural effusion with associated trapped lung c/b empyema s/p intrapleural fibrinolytics. He is currently recovering well and without signs/symptoms of active infection. Plan: 1. Complete abx as prescribed per ID 2. 30 minutes of exercise daily at a minimum 3. RTC in [address] Chest with contrast 4. Call with any questions or if signs/symptoms of infection present (fevers/chill/worsening cough/hemoptysis/pain). Belen Burns PA-C 11/18/2019 Thoracic Surgery [facility] I have seen the patient and reviewed the PA/resident's above history and I agree with the details aswritten. The assessment and plan were formulated in discussion with me and I agree with them as documented. Assessment: Alin Meek is a 69 y.o. male with a h/o stage IIIA lung adenocarcinoma, s/p R VATS pleural biopsies and pleurX catheter placement for benign recurrent pleural effusion with associated trapped lung c/b empyema s/p intrapleural fibrinolytics. He is currently recovering well and without signs/symptoms of active infection and his pleurx was removed >1 week ago. Plan: 1. Complete abx as prescribed per ID 2. 30 minutes of exercise daily at a minimum -- we had a long talk about this and why it is important. He said he will listen to his 's nagging. 3. RTC in [address] Chest with contrast. This will be about 1 week after stopping abx. 4. Follow up with his PCP as scheduled 5. Call with any questions or if signs/symptoms of infection present (fevers/chill/worsening cough/hemoptysis/pain). CANDICE TOLLIVER MD documented in this encounter Plan of Treatment Upcoming Encounters Date Type Specialty Care Team Description 01/19/2022 Office Visit Hematology and Oncology Loan Burton, NOLAN [facility] HEMATOLOGY/[place] [address] 01/19/2022 Infusion Hematology and Oncology Can eled (F-ARIA CANCEL) 01/25/2022 Hospital Gastroenterology Jose Clark MD [facility] [place] [address] 01/25/2022 Surgery Gastroenterology Jose Clark UPPE R GI R, MD ENDOSCOPY [facility] [place] [address] 01/26/2022 Office Visit Hematology and Oncology Fabian Cameron MD [facility] HEMATOLOGY/[place] [address] Loan Burton APRN [facility] HEMATOLOGY/[place] [address] 01/26/2022 Infusion Hematology and Oncology 02/02/2022 Office Visit Hematology and Oncology Fabian Cameron MD [facility] HEMATOLOGY/[place] [address] 02/02/2022 Infusion Hematology and Oncology 02/22/2022 Telephone Hematology and Oncology Siena Lloyd RD [facility] [address] [place] [address] Scheduled Procedures Name Priority Associated Diagnoses Date/Time EGD, UPPER GI ENDOSCOPY EGD with stent vs 2021 12:00 PM EDT cryotherapy. documented as of this encounter Results CT Chest w Contrast [...] this report, please contact e number below. Candice Tolliver MD IMG CT ORDERABLES documented in this encounter Visit Diagnoses Diagnosis Primary lung adenocarcinoma, right Hx of pleural effusion Personal history of other diseases of re spiratory system Morbid obesity Pleural empyema Empyema without mention of fistula Pleural empyema Empyema without mention of fistula documented in this encounter Care Teams Tour Conductor Relationship Specialty Start Date End Date Farzaneh Winkler, CARD FIXER PCP - General General Internal Medicine 06/05/[address] [place] [phone] documented as of this encounter
--- OUTSIDE RECORDS SUMMARY | 2022-01-19 07:36 | XMS_ITS | Encounter Summary ---
:1950 Author Organization [facility] [place] [address] Care Team Providers Name Role Phone Farzaneh Winkler APRN Primary Care Provider Encounter Details Date Type Department Care Team Description 02/07/2021 Telephone Dermatology at [facility] NaseemMonty MD [address] [place] [address] [facility]-DERMATOLOGY [phone] [place], [place] [address] (Wo rk) Social History Tobacco Use Types [...] this encounter Miscellaneous Notes Telephone Encounter - Carol Roberto LPN - 02/07/2021 3:49 PM EDT Called and left a detailed message asking him to call the office to answer some pre-op questions prior to his appointment on the January. documented in this encounter Plan of Treatment Upcoming Encounters Date Type Specialty Care Team Description 01/19/2022 Office Visit Hematology and Oncology Loan Burton APRN [facility] HEMATOLOGY/[place] [address] 01/19/2022 Infusion Hematology and Oncology Canc eled (F-ARIA CANCEL) 01/25/2022 Hospital Gastroenterology Jose Clark MD [facility] GASTROENTER[place] [address] 01/25/2022 Surgery Gastroenterology Jose Clark UPPE R GI R, MD ENDOSCOPY [facility] [place] [address] 01/26/2022 Office Visit Hematology and Oncology Fabian Cameron MD [facility] HEMATOLOGY/[place] [address] Loan Burton APRN [facility] HEMATOLOGY/[place] [address] 01/26/2022 Infusion Hematology and Oncology 02/02/2022 Office Visit Hematology and Oncology Fabian Cameron MD [facility] HEMATOLOGY/[place] [address] 02/02/2022 Infusion Hematology and Oncology 02/22/2022 Telephone Hematology and Oncology Siena Lloyd, MUKUND [facility] [address] HEMATOLOGY [place] [address] Scheduled Procedures Name Priority Associated Diagnoses Date/Time EGD, UPPER GI ENDOSCOPY EGD with stent vs 2021 12:00 PM EDT cryotherapy. documented as of this encounter Visit Diagnoses Not on filedocumented in this encounter Care Teams Vice President Of Academic Affairs Relationship Specialty Start Date End Date Farzaneh Winkler, NOLAN PCP - General General Internal Medicine 06/05/[address] [place] [id number] documented as of this encounter
--- OUTSIDE RECORDS SUMMARY | 2022-01-19 07:36 | XMS_ITS | Encounter Summary ---
:1950 Author Organization [facility] [place] [address] Care Team Providers Name Role Phone PetersonRamónrubio Huff APRN Primary Care Provider Encounter Details Date Type Department Care Team Description 10/04/2020 Ext Surgery or [facility] Antony Coleman Dy spnea, unspecified Single Event Hospital MD type [address] [facility] [place], [place], [place] [phone] Social History Tobacco Use Types Packs/Day Years [...] Office Visit Hematology and Oncology Loan Burton, FRYER LINE HELPER [facility] HEMATOLOGY/[place] [address] 01/19/2022 Infusion Hematology and Oncology Canc eled (F-ARIA CANCEL) 01/25/2022 Hospital Gastroenterology Jose Clark MD [facility] [place] [address] 01/25/2022 Surgery Gastroenterology Jose Clark, LOLA Yates MD ENDOSCOPY [facility] [place] [address] 01/26/2022 Office Visit Hematology and Oncology Fabian Cameron MD [facility] HEMATOLOGY/[place] [address] Loan Burton APRN [facility] HEMATOLOGY/[place] [address] 01/26/2022 Infusion Hematology and Oncology 02/02/2022 Office Visit Hematology and Oncology Fabian Cameron MD [facility] HEMATOLOGY/[place] [address] 02/02/2022 Infusion Hematology and Oncology 02/22/2022 Telephone Hematology and Oncology Siena Lloyd, MUKUND [facility] DRIVE [place] [address] Scheduled Procedures Name Priority Associated Diagnoses Date/Time EGD, UPPER GI ENDOSCOPY EGD with stent vs 2021 12:00 PM EDT cryotherapy. documented as of this encounter Procedures Procedure Name Priority Date/Time Associated Diagnosis Comme nts ECHO SCAN (SCAN) 10/04/2020 12:00 AM Resu lts for this EDT procedure are i n the results section. documented in this encounter Results SCAN DOC: ECHO (10/04/2020 12:00 AM EDT) Narrative 10/04/2020 12:00 AM EDT This result has an attachment that is no t available. Ordered by an unspecified provider. Scanning Provider MEDIA MGR SCAN EXT ORDR/RSLT documented in this encounter Visit Diagnoses Diagnosis Dyspnea, unspecified type documented in this encounter Care Teams Skip Tender Relationship Specialty Start Date End Date Farzaneh Winkler, FRYER LINE HELPER PCP - General General Internal Medicine 06/05/[address] [place] [id number] documented as of this encounter
--- OUTSIDE RECORDS SUMMARY | 2022-01-19 07:36 | XMS_ITS | Encounter Summary ---
:1950 Author Organization [facility] [place] [address] Care Team Providers Name Role Phone Peterson Farzanehrubio Huff APRN Primary Care Provider Reason for Visit Consultation (Routine) - Closed Specialty Diagnoses / Procedures Referred By Contact Refer red To Contact Dermatology Diagnoses BCC (basal cell carcinoma), ear, right BCC, RIGHT SCAPHA Ayden, MD Naseem Arana Matthew R, MD [address] [place] [address] DR CAREY DOYLE [facility] [id number] [place] [phone] Fax: Referral ID Status Reason Start Date Expiration Date Visits Requ ested Visits Authorized [id number] Closed 12/27/2020 12/27/2021 1 1 Encounter Details Date Type Department Care Team Description 02/10/2021 Procedure visit Dermatology at [facility] Basal cell carcinoma Akbar Yates MD of right ear [address] [facility] [id number] [facility] [phone] [address]-DERMATOLOGY [place] [id number] Social History Tobacco Use Types Packs/Day Years [...] Sign Reading Time Taken Comments Blood Pressure 129/53 02/10/2021 10:08 AM EDT Pulse 95 02/10/2021 10:08 AM EDT Temperature - - Respiratory Rate - - Oxygen Saturation - - Inhaled Oxygen Concentration - - Weight - - Height - - Body Mass Index - - documented in this encounter Patient Instructions Patient InstructionsTravoFreya yates RN - 02/10/2021 10:30 AM EDT Your staff surgeon today was Monty Gusman MD, PhD. SECOND INTENTION HEALING Second intention healing means healing on its own. It was decided that your wound will heal by nature, on its own, without reconstruction or significant stitching. Your wound may heal within days if it is small, shallow, and if you are a fast healer. However, a larger and deeper wound may take weeks to months to completely heal. One of the advantages of a wound healing on its own, is that you do not have many physical restrictions. You may want to take it easy for the first 48 hours after surgery to prevent bleeding, but youmay otherwise resume exercise and return to work. You may begin showering 48 hours after surgery but avoid direct water pressure from the shower head to your wound to prevent bleeding and tenderness/pain. Keep below as a reference while caring for your wound(s): Wound Care ??? Gently remove your initial bandage (after 48 hours from surgery). It is normal to have swelling and bruising. ??? Begin wound care as below. ??? If your initial bandage only stayed on for 24 hours (for example, falls off sooner), this is okay. Resume your wound care and bandaging instructions as below. ??? Change your bandage once a day (and whenever it becomes wet or soaks through) until wound is healed. ??? For bandage changes: o Wash hands with soap and water, or use gloves that you can purchase at a local pharmacy or drug store. o Clean the surgical area with cotton-tipped swabs or soft gauze dipped in soapy water (recommend liquid soap in clean room temperature water). Roll the cotton swab over the incision with soapy water, then with plain water, and then gently pat dry. Do not scrub the area with a washcloth. Do not put direct shower water pressure onto your wound. Do not pick off any scabs. It is okay to allow soapy water to run over your wound in the shower, however, as an alternative means of cleaning your wound. o If you cannot remove any bloody or crusted areas, you may soak the area with wet gauze first for 15 to 20 minutes to help soften it o Pat the area dry with clean gauze or cotton swabs. Do not rub. o Use a cotton swab or two to apply a generous layer of petrolatum over the incision lines and any open-wound areas. If it is difficult to get the patrolatum onto your wound, you can try applying it tothe non-stick bandage itself and then putting the bandage over the wound. o Make sure your tube or jar of petrolatum is new or unused to prevent prior contamination from entering your wound. Avoid double dipping. o After applying petrolatum, use a clean nonstick gauze or other nonstick dressing, such as Telfa. This may be purchased over the counter at a drug store. Do not use regular gauze as it will stick to your wound and can peel off healing skin with bandage changes. o Secure the bandage with paper tape or a bandage. Band-aids are okay, but typically have more adhesive that can irritate the skin compared to paper tape. This can be purchased at a drug store. o Continue this wound care daily until your wound has healed or until otherwise specified by your doctor. o Keep in mind that if you do not want to use a bandage at all due to difficulty, irritation of skin, cost, or inconvenience --- you can certainly avoid bandages altogether. However, it is imperative that you continue with topical petrolatum (plain, fragrance-free). This may need to be applied several times daily if it gets wiped off, washed off, or dries out. Things to purchase for wound care: -Nonstick gauze -A tube or tub of petrolatum jelly (fragrance-free, no dye, not lotion) -paper tape -cotton swabs -gloves (optional) -Dial or other antibacterial liquid soap After Surgery 1. Avoid tobacco, smoking/vapors, and cannabis (marijuana) for at least 3 weeks after your surgery. Smoking impairs healing and leads to worse scarring. Even cutting back on tobacco is helpful if you cannot stop or avoid this completely. 2. Limit alcohol intake to one drink per day over the next 3 days. 3. Do not participate in athletic activities or heavy chores, or lift anything heavier than 10 pounds, for 2 days. Avoid climbing the stairs unless necessary during this time as well. You may resume your activities as usual after 2 days 4. Avoid swimming, hot tubs, and direct water pressure for 3 weeks after surgery. You may shower once your initial bandage comes off in 48 hours, however. If you do choose to swim in a pool, pond, stone, or ocean while your wound is still open, please make sure to wash the wound with soapy water immedia tely. There is also the option to apply a gauze soaked in diluted vinegar for 15 minutes immediatelyafter swimming (see recipe at the bottom of our instructions). The vinegar soak can help prevent infection, and can also help if you think your wound is getting smelly. Vinegar soaks are especially helpful for healing ear wounds. 5. Avoid antibiotic ointments such as triple antibiotic creams. Stick with your wound care instructions, please. 6. Whenever possible, it is helpful to take photographs with your camera or cell phone of any problems or concerns you see with your wound. We often ask for photos when you call with questions. 7. Your wound will first develop is squishy yellowish substance at the bottom of the wound called granulation. This is your healing flesh. Once the inside of your wound has healed in, then the skin edges will begin to follow by getting closer and closer together until the wound has closed completely. The rate of how fast you heal is highly variable, but doing proper wound care will help you heal morequickly. 8. Keep your follow-up appointments and make sure to continue to have your skin checked, as often asis recommended by your weight guesser, for new skin cancers. This is once per year for most patients. 9. Your can expect your scar to be red for several weeks with gradual fading of the redness over thenext few months. 10. To optimize your scar, and best cosmetic result, please avoid direct sunlight to your healed scar for the first 6 months following surgery. UV ray exposure from the sun may cause the redness to last longer, or to cause permanent darkening of your scar. You can avoid sun by covering your incision wi th a bandage when outdoors, or wearing SPF 30 to 50 sunscreen (broad spectrum). 11. Bruising. It is very common to have bruising and swelling of the eyelids or other areas of face if you had surgery on the forehead, temples, cheeks, or nose. This is expected in most patients and will gradually resolve. 12. If you have severe pain not resolving with over the counter medicines, please call us. 13. You can use ice packs or a bag of frozen peas for 15-20 minutes 3-4 times daily to any areas of swelling but do not get bandages wet or dirty. Use caution not to put the icy item directly on your wound, directly onto your skin as this can damage skin, and avoid prolonged use more than 20 minutes. The best way to use ice packs is over the bandage, or a light cloth/paper towel between the ice pack and your skin. You can ice for as many days as needed until swelling has resolved. Antibiotics: If you were given antibiotic prescription, it is important to start them the evening of your surgerydate. Most patients do not need antibiotics after surgery. For pain: Most patients of different ages do not require pain medications. If you do feel soreness or pain, start by taking over the counter extra strength acetaminophen (up to 3000 mg in a 24 hour period). Generally, we like you to avoid NSAIDS (non-steroid anti-inflammatory drugs such as ibuprofen) for the first 48 hours after surgery as this can increase risk of bleeding. However, if acetaminophen is not helping with pain, you can alternate acetaminophen with iburpofen (ibuprofen 400 mg every 4 hours.) Icepacks over your bandage without getting your bandage wet can also help with pain and swelling, for up to 20 minutes at a time (20 minutes off between icing sessions). Frozen peas work well as ice packs. THIS IS AN EXAMPLE OF A PAIN TREATMENT SCHEDULE: 1) You can take 500 mg acetaminophen one tablet by mouth at 6:00pm. This is over the counter. 2) You can take 400 mg of ibuprofen two hours later, at 8:00 pm, or other NSAID such as naproxen, aslong as it does not interact with your other medications and your other doctors have not told you toavoid this. This is over the counter. Check to see how many milligrams (mg) each of your ibuprofen tablets are. Most of the time, ibuprofen comes in 200 mg tablets, so 400 mg would mean taking two of these tablets or capsules. 3) You can take 500 mg of acetaminophen at 10:00 pm. Keep track of your total acetaminophen in a 24 hour period as your maximum should be 3000 mg total in a 24 hour period of this medication. 4) At midnight, you can take another 400 mg of ibuprofen. 5) you can continue on this schedule over the next 2 days, making sure to keep tabs of your total acetaminophen. If you are still in pain after trying the above, please call us. When to call your surgeon: ??? Fever of 100.4 degrees Fahrenheit or higher ??? Bleeding not controlled with direct firm pressure to your wound. Bleeding is most common in the first 48 hours. ??? Pain that is worsening and not relieved by over the counter medications such as acetaminophen (up to 3000 mg in a 24 hour period) ??? Wound reopening after stitching ??? Pus or bad odor from your wound ??? Worsening redness and warmth around your wound ??? If you think your surgery site is infected, please call us before seeking care or antibiotics from other providers ??? Please call us before seeking care in an emergency room or primary care. ??? If you do call, please leave your full name, phone number, date of , date of surgery, and medical record number if you have it. IF YOU ARE TRYING TO REACH US AFTER HOURS (before 8am, after 5pm, or on the weekends): Call the filling machine operator or [phone] and ask for the weight guesser on-call. If you have any non-urgent questions or concerns, please feel free to call my office or contact me through our patient portal, [email or web address], at [email or web address] How to contact us during business hours Mohs scheduling or Mohs follow-up appointments: [phone] documented in this encounter Progress Notes Monty Gusman MD - 02/10/2021 10:30 AM EDT Images from the original note were not included. Summary of Procedure(s): Site: right scapha Tumor Type: Basal Cell Carcinoma, micronodular Stages to clear tumor: 1 Repair: granulation Images: The patient was asked to call with any issues and is aware that I am available 08/01 should questionsarise. Monty Gusman MD PhD Mohs Micrographic Surgery and Dermatologic Oncology Department of Dermatology Please note that I have reviewed the preoperative checklist from today's nursing visit including relevant social history and medications. I have reviewed the preoperative photos if available and the biopsy report. VITAL SIGNS: BP 129/53 (BP Location (NBP): Right arm) Pulse 95 PHYSICAL EXAMINATION: General: patient is awake, alert, oriented and in no acute distress. Skin: Focused examination of surgical site(s) performed which shows a well healed biopsy site with surrounding poorly defined pearly plaque. PHYSICIAN REVIEW OF REPORTS, RECORDS, IMAGES: 1) The accompanying pathology report(s) associated with aforementioned biopsy slide(s) were/was alsoreviewed. Assessment: Alin Meek is a 70 y.o. male presenting for: 1. Biopsy-proven basal cell carcinoma, micronodular located on the right scapha. Plan: 1. Findings from the biopsy report, today's clinical exam, and other pertinent details were reviewedwith patient today. All questions were answered. 2. Discussed treatment options based on the above findings. We recommended Mohs micrographic surgeryfor treatment of this tumor. Mohs micrographic surgery was indicated due to patient, site and/or tumor characteristics (see operative report for specific indication). 3. We discussed risks, benefits, and alternative treatment options to the Mohs micrographic surgery procedure and pertinent information including but not limited to the following: ?? Risks include bleeding, infection, scar, recurrence, incomplete tumor removal or inability to cure with surgery alone if the tumor features are more aggressive than the initial pathology indicates. Occasionally, additional adjuvant treatments may be recommended. Additional risks include large wound, prolonged wound and healing, pain, swelling, bruising, increased appearance of vessels or worseningerythema of baseline skin; more rarely risks include damage to underlying structures such as nerves,cartilage, or muscle which could lead to temporary or permanent loss of sensation or motor function. ?? Benefit is precise tumor removal ?? If reconstruction is performed, it is specific to the patient and defect. ?? Discussed that the shape, size, depth of the wound is often not known until the tumor is cleared and thus the reconstruction options are sometimes not known until after tumor clearance. Occasionally, referrals to other providers may be recommended for reconstruction based on patient preference and need. ?? Reviewed the pros and cons of common reconstructions used for this tumor type, size, and location, and that reconstruction may lead to change in appearance. ?? Natural history of scar was discussed, including that the scar will continue to mature for 1-2 years. Recommended avoidance of special ointments or scar creams, and avoidance of direct sun exposure to the scar for optimal recovery. ?? Reviewed that there are some aspects of cosmesis that are dependent on patient's characteristics such as age, skin laxity/texture factors, inflammatory skin diseases such as rosacea, prior surgery/radiation, degree of actinic damage, smoking status, strength of the patient's immune system, diligentwound care, medications, and genetics. ?? Having Mohs surgery may lead to physical limitations for optimal healing, such as restricted physical activity and heavy lifting. 4. The nature of sun-induced photo-aging and skin cancers was discussed. Recommended sun avoidance when possible, especially peak hours of sun 10 am to 2pm, protective clothing such as wide-brimmed hats and long-sleeved clothing, and the use of SPF broad-spectrum sunscreen SPF 50 or higher. 5. Signs and symptoms of skin cancer reviewed. Patient to report any new, changing, or symptomatic lesions and follow up with his or her weight guesser or other skin provider. 6. Discussed avoiding direct sun exposure to scars for best cosmetic result. Note initiated by MADISYN TaoRIK BAILEY has performed the documentation for this encounter in the presence of andacting as a scribe for Dr. Gusman I performed the above scribed service and agree with the accuracy of the documentation in this encounter. Reviewed and signed by: Monty Gusman MD - 02/10/2021 10:30 AM EDT Mohs micrographic Surgery Operative Report Patient name: Alin Meek : 1950 Date: 02/10/2021 Staff Surgeon: Monty Gusman MD PhD Nursing/Telegraph Service Clerk(s): Sandra Perez RN, Krys Alexander CMA, Carol Roberto LPN, Freya Hoffman RN Screen Printing Paster (s): Julee Barraza Pre-operative diagnosis: Basal Cell Carcinoma, micronodular Post-operative diagnosis: same Location/Site: [facility] Procedure: Mohs micrographic surgery Indication(s) for Mohs micrographic surgery: Anatomic location for tissue conservation Stages: 1 Preoperative size of tumor: 1.1 x 1.0 cm Stage I The nature and purpose of the procedure, associated risks, possible consequences and complications,and alternative forms of treatment were explained in detail. We reviewed the possible repairs based on the clinical appearance of tumor but discussed that often the repair options may not be known until the tumor has jaren extirpated. Informed consent and permission to take photographs were obtained. The site was confirmed with the patient/authorized telephone services sales representative/referring physician and/or a photograph form time of biopsy. A pre-operative time-out (procedural pause) was conducted with no unresolved d iscrepancies noted. Local anesthesia was obtained with 1% lidocaine with 1:100,000 epinephrine. The surgical site was prepped and draped in the usual sterile manner. With all visible gross tumor completely excised, the borders of the tumor and 2-3 mm margins were excised as a complete layer. Hemostasis was achieved by electrocoagulation. The excised tissue was oriented and divided into 1 sections, chromacoded, and submitted for frozen sections. The patient tolerated the procedure well and without complications. On microscopic evaluation of the frozen sections, no residual tumor was identified on the deep or outer border of the sections. The final size of the defect after complete tumor removal was 1.3 x 1.2 cm, extending to level of perichondrium. Monty Gusman MD PhD Mohs Micrographic Surgery and Dermatologic Oncology Department of Dermatology [address] [place], [place] [id number] Repair Operative Report (Second intention) Patient name: Alin Meek : 1950 Date: 02/10/2021 Staff Surgeon: Monty Gusman MD PhD Apparatus Cleaner(s): Same as above Clinical Diagnosis: 1.3 x 1.2 cm surgical defect secondary to Mohs micrographic surgery Location/Site: right scapha Procedure: Second intention After reviewing the reconstruction options including primary closure, local flaps, skin graft, and second intention healing, the patient elected to have the post Mohs defect heal by second intention. The surgical site was cleaned and any bleeding hemostasis achieved with electrosurgery. White petrolatum with a nonstick gauze pressure dressing was applied. The patient tolerated the procedure well and without complications and was given both verbal and written instruction on postoperative wound care. The patient was discharged in good condition. Total local anesthesia with 1% lidocaine with 1:100,000 epinephrine used: 3cc Total local with 0.25% bupivacaine used: 3cc Note initiated by Sandra Perez, RN Sandra Perez, RN has performed the documentation for this encounter in the presence of and acting as a scribe for Dr. Gusman I performed the above scribed service and agree with the accuracy of the documentation in this encounter. Reviewed and signed by: Monty Gusman Dermatology [facility] Monty Gusman MD PhD Mohs Micrographic Surgery and Dermatologic Oncology Department of Dermatology [address] [place] [phone] documented in this encounter Plan of Treatment Upcoming Encounters Date Type Specialty Care Team Description 01/19/2022 Office Visit Hematology and Oncology Loan Burton, [facility] HEMATOLOGY/[place] [address] 01/19/2022 Infusion Hematology and Oncology Canc eled (F-ARIA CANCEL) 01/25/2022 Hospital Gastroenterology Jose Clark MD [facility] [place] [address] 01/25/2022 Surgery Gastroenterology Jose Clark EGD, LOLA Yates MD ENDOSCOPY [facility] [place] [address] 01/26/2022 Office Visit Hematology and Oncology Fabian Cameron MD [facility] DR HEMATOLOGY/[place] [address] Loan Burton APRN [facility] HEMATOLOGY/[place] [address] 01/26/2022 Infusion Hematology and Oncology 02/02/2022 Office Visit Hematology and Oncology Fabian Cameron MD [facility] HEMATOLOGY/[place] [address] 02/02/2022 Infusion Hematology and Oncology 02/22/2022 Telephone Hematology and Oncology Siena Lloyd, [facility] DRIVE HEMATOLOGY [place] [address] Scheduled Procedures Name Priority Associated Diagnoses Date/Time EGD, UPPER GI ENDOSCOPY EGD with stent vs 2021 12:00 PM EDT cryotherapy. documented as of this encounter Visit Diagnoses Diagnosis Basal cell carcinoma of right ear documented in this encounter Care Teams Processing Technician Relationship Specialty Start Date End Date Farzaneh Winkler, HOUSING PROPERTY MANAGER PCP - General General Internal Medicine 06/05/[address] [place] [id number] documented as of this encounter
--- OUTSIDE RECORDS SUMMARY | 2022-01-19 07:36 | XMS_ITS | Encounter Summary ---
:1950 Author Organization [facility] [place] [address] Care Team Providers Name Role Phone Farzaneh Winkler APRN Primary Care Provider Encounter Details Date Type Department Care Team Description 11/18/2019 Hospital Encounter XRay at [facility] Pleural empyema [address] [place] [address] [place] [address] Social History Tobacco Use Types Packs/Day [...] daily Empyema of pleura for 18 days. folic acid (Folvite) 1 mg Take 1 mg by mouth 0 06/09/2021 Tablet daily. b complex vitamins Take 1 capsule by 0 12/29/2021 Capsule mouth daily. documented as of this encounter Plan of Treatment Upcoming Encounters Date Type Specialty Care Team Description 01/19/2022 Office Visit Hematology and Oncology Loan Burton, NOLAN [facility] HEMATOLOGY/[place] [address] 01/19/2022 [facility] Hematology and Oncology Canc eled (F-ARIA CANCEL) 01/25/2022 Hospital Gastroenterology Jose Clark MD [facility] [place] [address] 01/25/2022 Surgery Gastroenterology Jose Clark UPPE R GI MD [place] ENDOSCOPY [facility] [place] [address] 01/26/2022 Office Visit Hematology and Oncology Fabian Cameron MD [facility] HEMATOLOGY/[place] [address] Loan Burton, NOLAN [facility] HEMATOLOGY/[place] [address] 01/26/2022 Infusion Hematology and Oncology 02/02/2022 Office Visit Hematology and Oncology Fabian Cameron MD [facility] HEMATOLOGY/[place] [address] 02/02/2022 Infusion Hematology and Oncology 02/22/2022 Telephone Hematology and Oncology Siena Lloyd RD [facility] DRIVE [place] [address] Scheduled Procedures Name Priority Associated Diagnoses Date/Time EGD, UPPER GI ENDOSCOPY EGD with stent vs 2021 12:00 PM EDT cryotherapy. documented as of this encounter Procedures Procedure Name Priority Date/Time Associated Diagnosis Comme nts XR CHEST PA AND Routine 11/18/2019 9:57 AM Pleural empyema Res ults for this LATERAL EDT procedure are i n the results section. documented in this encounter Results XR Chest PA & Lateral (Generic) (11/18/2019 9:57 AM EDT) Anatomical Region Laterality Modality Chest N/A Digital Radiography Specimen (Source) Anatomical Location Collection Method / Collectio n Time Received Time / Laterality Volume Impressions 11/18/2019 10:11 AM EDT Similar appearance to the post Pleurx changes in the RIGHT hemithorax. Slight increased aeration in the RIGHT midlung field. No evidence for pneumothorax. Persistent short air-fluid level at the RIGHT lung base. Thank you for letting us participate in the care of this patient. For questions regarding this report, please contact e number below. ? Narrative 11/18/2019 10:11 AM EDT EXAMINATION: XR CHEST PA AND LATERAL (GENERIC) CLINICAL HISTORY: Pleurx in place, re-ev al right sided effusion TECHNIQUE: PA and lateral views of the chest COMPARISON: Prior chest 11/01/2019 and 11/06/2019 FINDINGS: Mediport catheter is not changed in its appearance. The RIGHT PICC line has been removed. Minimally decreased pleural and parenchymal opacity in the mid hemithorax. Persistent air-fluid levels at the RIGHT lung base. The LEFT lung is clear. Visualized portion of the cardiom ediastinal silhouette is unchanged. The appearance of the LEFT pulmonary bharathi is unchanged. Procedure Note Emily Sams MD - 11/18/2019Forma tting of this note might be different from the original. EXAMINATION: XR CHEST PA AND LATERAL (GE NERIC) CLINICAL HISTORY: Pleurx in place, re-ev al right sided effusion TECHNIQUE: PA and lateral views of the chest COMPARISON: Prior chest 11/01/2019 and 11/06/2019 FINDINGS: Mediport catheter is not changed in its appearance. The RIGHT PICC line has been removed. Minimally decreased pleural and parenchymal opacity in the mid hemithorax. Persistent air-fluid levels at the RIGHT lung base. The LEFT lung is clear. Visualized portion of the cardiom ediastinal silhouette is unchanged. The appearance of the LEFT pulmonary bharathi is unchanged. IMPRESSION Similar appearance to the post Pleurx ch anges in the RIGHT hemithorax. Slight increased aeration in the RIGHT midlung field. No evidence for pneumothorax. Persistent short air-fluid level at the RIGHT lung base. Thank you for letting us participate in the care of this patient. For questions regarding this report, please contact e number below. Otf Jsoe MD IMG DX ORDERABLES documented in this encounter Visit Diagnoses Diagnosis Pleural empyema Empyema without mention of fistula documented in this encounter Care Teams Spa Receptionist Relationship Specialty Start Date End Date Farzaneh Winkler, CREDIT REVIEW MANAGER PCP - General General Internal Medicine 06/05/[address] [place] [address] documented as of this encounter
--- OUTSIDE RECORDS SUMMARY | 2022-01-19 07:36 | XMS_ITS | Encounter Summary ---
:1950 Author Organization [facility] [place] [address] Care Team Providers Name Role Phone Farzaneh iWnkler Daria REPAIRER CONTROLLER TESTER Primary Care Provider Encounter Details Date Type Department Care Team Description 11/06/2019 Orders Only Infectious Disease de Otf Caro ma of pleura; at [facility] MD Carolina Escobar of Corynebacterium infection [facility] [address] [place], [place], [place] [id number] [phone] Social History Tobacco Use Types Packs/Day Years [...] Office Visit Hematology and Oncology Loan Burton, REPAIRER CONTROLLER TESTER [facility] HEMATOLOGY/[place] [address] 01/19/2022 Infusion Hematology and Oncology Canc eled (F-ARIA CANCEL) 01/25/2022 Hospital Gastroenterology Jose Clark MD [facility] GASTROENTEROLOG [place] [address] 01/25/2022 Surgery Gastroenterology Jose Clark, LOLA Yates MD ENDOSCOPY [facility] GASTROENTEROLOG [place] [address] 01/26/2022 Office Visit Hematology and Oncology Fabian Cameron MD [facility] DR HEMATOLOGY/[place] [address] Lona Burton REPAIRER CONTROLLER TESTER [facility] HEMATOLOGY/[place] [address] 01/26/2022 Infusion Hematology and Oncology 02/02/2022 Office Visit Hematology and Oncology Fabian Cameron MD [facility] HEMATOLOGY/[place] [address] 02/02/2022 Infusion Hematology and Oncology 02/22/2022 Telephone Hematology and Oncology Siena Lloyd RD [facility] DRIVE HEMATOLOGY [place] [address] Scheduled Procedures Name Priority Associated Diagnoses Date/Time EGD, UPPER GI ENDOSCOPY EGD with stent vs 2021 12:00 PM EDT cryotherapy. documented as of this encounter Visit Diagnoses Diagnosis Empyema of pleura Empyema without mention of fistula Sequela of Corynebacterium infection documented in this encounter Care Teams Asset Protection Manager Relationship Specialty Start Date End Date Farzaneh Winkler, REPAIRER CONTROLLER TESTER PCP - General General Internal Medicine 06/05/[address] [place] [phone] documented as of this encounter
--- OUTSIDE RECORDS SUMMARY | 2022-01-19 07:36 | XMS_ITS | Encounter Summary ---
:1950 Author Organization [facility] [place] [address] Care Team Providers Name Role Phone PetersonRamónrubio Huff APRN Primary Care Provider Encounter Details Date Type Department Care Team Description 11/21/2019 Telephone Thoracic Surgery at [facility] Caprice Barrow LNA [facility] [place] [address] Social History Tobacco Use Types Packs/Day [...] this encounter Miscellaneous Notes Telephone Encounter - Caprice Barrow LNA - 11/21/2019 10:35 AM EDT Call made, message left with appointment details. documented in this encounter Plan of Treatment Upcoming Encounters Date Type Specialty Care Team Description 01/19/2022 Office Visit Hematology and Oncology Loan Burton, NOLAN [facility] HEMATOLOGY/[place] [address] 01/19/2022 Infusion Hematology and Oncology Canc eled (F-ARIA CANCEL) 01/25/2022 Hospital Gastroenterology Jose Clark MD [facility] [place]STROENTER[place] [address] 01/25/2022 Surgery Gastroenterology Jose Clark EGLOLA Escobar MD ENDOSCOPY [facility] [place]STR[place] [address] 01/26/2022 Office Visit Hematology and Oncology Fabian Cameron MD [facility] HEMATOLOGY/[place] [address] Loan Burton APRN [facility] HEMATOLOGY/[place] [address] 01/26/2022 Infusion Hematology and Oncology 02/02/2022 Office Visit Hematology and Oncology Fabian Cameron MD [facility] HEMATOLOGY/[place] [address] 02/02/2022 Infusion Hematology and Oncology 02/22/2022 Telephone Hematology and Oncology Siena Lloyd, MUKUND [facility] DRIVE HEMATOLOGY [place] [address] Scheduled Procedures Name Priority Associated Diagnoses Date/Time EGD, UPPER GI ENDOSCOPY EGD with stent vs 2021 12:00 PM EDT cryotherapy. documented as of this encounter Visit Diagnoses Not on filedocumented in this encounter Care Teams Straightening Press Operator Helper Relationship Specialty Start Date End Date Farzaneh Winkler, MECHANICAL INTERN PCP - General General Internal Medicine 06/05/[address] [place] [address] documented as of this encounter
--- OUTSIDE RECORDS SUMMARY | 2022-01-19 07:36 | XMS_ITS | Encounter Summary ---
:1950 Author Organization [facility] [place] [address] Care Team Providers Name Role Phone Farzaneh Winkler APRN Primary Care Provider Encounter Details Date Type Department Care Team Description 06/03/2021 Hospital [place] [address] Social History Tobacco Use Types Packs/Day [...] [facility] HEMATOLOGY/[place] [address] 01/19/2022 Infusion Hematology and Oncology Canc eled (F-ARIA CANCEL) 01/25/2022 Hospital Gastroenterology Jose Clark MD [facility] [place] [address] 01/25/2022 Surgery Gastroenterology Jose Clark UPPE R GI R, MD ENDOSCOPY [facility] DR [place] [address] 01/26/2022 Office Visit Hematology and Oncology Fabian Cameron MD [facility] HEMATOLOGY/[place] [address] Loan Burton, NEEDLE CONTROL CHENILLER [facility] HEMATOLOGY/[place] [address] 01/26/2022 Infusion Hematology and Oncology 02/02/2022 Office Visit Hematology and Oncology Fabian Cameron MD [facility] DR HEMATOLOGY/[place] [address] 02/02/2022 Infusion Hematology and Oncology 02/22/2022 Telephone Hematology and Oncology Siena Lloyd RD [facility] DRIVE [place] [address] Scheduled Procedures Name Priority Associated Diagnoses Date/Time EGD, UPPER GI ENDOSCOPY EGD with stent vs 2021 12:00 PM EDT cryotherapy. documented as of this encounter Procedures Procedure Name Priority Date/Time Associated Diagnosis Comme nts SURGICAL PATHOLOGY Routine 06/03/2021 3:23 PM Res ults for this REPORT EST procedure are i n the results section. documented in this encounter Results Surgical Pathology Report (06/03/2021 3:23 PM EST) Component Value Ref Test Analysis Performed At [facility] Range Method Time Signature Surgical [id number] ? Location: [facility] Pathology [place] Report The signing pathologist has (i) examined the relevant preparation(s) for the [facility] specimen(s) and (ii) rendered or confirmed the diagnosis(es) . HOSPITAL LABORATORY . ?Surgic al Pathology DIAGNOSIS CONSULTATION CASE 1. Outside slide(s) labeled [id number], collection date 09/2020. A. Left upper back, shave biopsy: - ??Basal cell carcinoma, terry perficial type, present at the peripheral specimen edge B. Right mid helix, shave biopsy: - ??Basal cell carcinoma, no dular type, extends near but does not involve the base of the specimen on the available plane of sectioning C. Left medial upper chest, shave ?? biopsy: - ??Basal cell carcinoma, no dular and infiltrating type, present at the peripheral and deep specimen edges D. Right medial upper chest, shave ?? biopsy: - ??Basal cell carcinoma, ?? nodular and infiltrating type, ??extends to the peripheral and deep specimen edges CONSULTATION CASE 2. Outside slide(s) labeled [id number], collection date 11/17. A. Left medial upper chest, skin excision: - Residual ??basal cell carcinoma, margins negative - ??Dermal scar and operative site changes B. Right medial chest, skin excision: - ??Negative for residual ??basal cell carcinoma - ??Dermal scar and procedure site changes CONSULTATION CASE 3. Outside slide(s) labeled [id number], collection date 11/17. A. Right scapha, shave ?? biopsy: - ??Basal cell carcinoma, no dular and micronodular type, ?? present at the deep specimen edge Electronically signed by: ?Luther CISNEROS, Juan Jose Samayoa Verified: ??06/06/2021 14:33 ??Dermatopathologist Performed at: ??[facility] Dept. of Pathology, [place], [place] SPECIMEN(S) SUBMITTED CONSULTATION CASE A - 4 slide(s) labeled [id number], collection date 1. B - 19 slide(s) labeled [id number], collection date 12/14/19 21. C - 1 slide(s) labeled [id number], collection date 1. [id number] Report to: [facility] Department of Pathology . SPECIMEN(S) SUBMITTED [address] [place] [address] ??[phone] , Ext [phone] CLINICAL INFORMATION No prior history of NMSC, melanie ordonez actively picking skin. Long history of sun exposure SPECIMEN PROCESSING [facility] ([place]) ?? pa thology slide(s) are reviewed. ??Refer to Diagnosis and Specimen Submitted for specific case information. Specimen (Source) Anatomical Collection Method Collection Time Re ceived Time Location / / Volume Laterality 06/03/2021 3:23 PM EST Fabian Cameron MD PATHOLOGY/CYTOLOGY ORDERABLE S Performing Organization Address City/State/[place] [address] documented in this encounter Visit Diagnoses Not on filedocumented in this encounter Care Teams Light Industrial Supervisor Relationship Specialty Start Date End Date Farzaneh Winkler, NOLAN PCP - General General Internal Medicine 06/05/[address] [place] [phone] documented as of this encounter
--- OUTSIDE RECORDS SUMMARY | 2022-01-19 07:36 | XMS_ITS | Encounter Summary ---
:1950 Author Organization [facility] [place] [address] Care Team Providers Name Role Phone Peterson Farzaneh Huff APRN Primary Care Provider Encounter Details Date Type Department Care Team Description 11/06/2019 Hospital Encounter XRay at [facility] Otf Jose, Pleural effusion [address] [facility] [address] [facility] [id number] [place] [phone] THORACIC SURGERY [place], [place] [address] Social History Tobacco Use Types [...] Visit Hematology and Oncology Loan Burton APRN [facility] HEMATOLOGY/[place] [address] 01/19/2022 Infusion Hematology and Oncology Canc eled (F-ARIA CANCEL) 01/25/2022 Hospital Gastroenterology Jose Clark MD [facility] GASTROENTEROLOG [place] [address] 01/25/2022 Surgery Gastroenterology Jose Clark UPPE R GI R, MD ENDOSCOPY [facility] GASTROENTEROLOG [place] [address] 01/26/2022 Office Visit Hematology and Oncology Fabian Cameron MD [facility] DR HEMATOLOGY/[place] [address] Loan Burton APRN [facility] HEMATOLOGY/[place] [address] 01/26/2022 Infusion Hematology and Oncology 02/02/2022 Office Visit Hematology and Oncology Fabian Cameron MD [facility] DR HEMATOLOGY/[place] [address] 02/02/2022 Infusion Hematology and Oncology 02/22/2022 Telephone Hematology and Oncology Siena Lloyd RD [facility] DRIVE HEMATOLOGY [place] [address] Scheduled Procedures Name Priority Associated Diagnoses Date/Time EGD, UPPER GI ENDOSCOPY EGD with stent vs 2021 12:00 PM EDT cryotherapy. documented as of this encounter Procedures Procedure Name Priority Date/Time Associated Diagnosis Comme nts XR CHEST PA AND Routine 11/06/2019 12:25 PM Pleural effusion R esults for this LATERAL EDT procedure are i n the results section. documented in this encounter Results XR Chest PA & Lateral (Generic) (11/06/2019 12:25 PM EDT) Anatomical Region Laterality Modality Chest N/A Digital Radiography Specimen (Source) Anatomical Location Collection Method / Collectio n Time Received Time / Laterality Volume Impressions 11/06/2019 1:14 PM EDT Similar appearance of the right hemithorax compared to prior except slightly decreased pleural-parenchymal o pacity in upper to mid hemithorax, but minimally increased fluid at the base. Thank you for letting us participate in the care of this patient. For questions regarding this report, please contact e number below. ? Narrative 11/06/2019 1:14 PM EDT EXAMINATION: XR CHEST PA AND LATERAL (GENERIC) CLINICAL HISTORY: hx of pleural effusion with pleurX catheter in place, please eval for changes, ptx, effusion TECHNIQUE: PA and lateral views of the c hest. COMPARISON: 11/01/2019. FINDINGS: Recurrent extremity PICC tip p osition compatible with mid to lower SVC. Other equipment in unchanged positi on. Slightly decreased pleural-parenchymal opacity in the right upper to mid hemithorax, minimally increased fluid at the base. Persistent air-fluid levels consistent with hydropneumothorax. Left lung is clear. U nchanged partially-obscured cardiomediastinal silhouette. Procedure Note Temitope Guerrier MD - 11/06/2019Formatt ing of this note might be different from the original. EXAMINATION: XR CHEST PA AND LATERAL (GE NERIC) CLINICAL HISTORY: hx of pleural effusion with pleurX catheter in place, please eval for changes, ptx, effusion TECHNIQUE: PA and lateral views of the c hest. COMPARISON: 11/01/2019. FINDINGS: Recurrent extremity PICC tip p osition compatible with mid to lower SVC. Other equipment in unchanged positi on. Slightly decreased pleural-parenchymal opacity in the right upper to mid hemithorax, minimally increased fluid at the base. Persistent air-fluid levels consistent with hydropneumothorax. Left lung is clear. U nchanged partially-obscured cardiomediastinal silhouette. IMPRESSION Similar appearance of the right hemithor ax compared to prior except slightly decreased pleural-parenchymal o pacity in upper to mid hemithorax, but minimally increased fluid at the base. Thank you for letting us participate in the care of this patient. For questions regarding this report, please contact e number below. Otf Jose MD IMG DX ORDERABLES documented in this encounter Visit Diagnoses Diagnosis Pleural effusion Unspecified pleural effusion documented in this encounter Care Teams Manager Paper Relationship Specialty Start Date End Date Farzaneh Winkler, MOTOR BLOCK MECHANIC PCP - General General Internal Medicine 06/05/[address] [place] [address] documented as of this encounter
--- OUTSIDE RECORDS SUMMARY | 2022-01-19 07:36 | XMS_ITS | Encounter Summary ---
:1950 Author Organization [facility] [place] [address] Care Team Providers Name Role Phone PetersonRamónrubio Huff APRN Primary Care Provider Encounter Details Date Type Department Care Team Description 11/12/2019 Telephone Thoracic Surgery at [facility] Mariana Ervin, [place] [address] Social History Tobacco Use Types Packs/Day [...] Telephone Encounter - Mariana Ervin RN - 11/12/2019 4:51 PM EDT TC to Mr. Meek Hx: stage IIIA lung adenocarcinoma s/p R VATS pleural bx and pleurX placement for recurrent right sided effusion who is admitted with concerns of clogged pleurX.??6 cycles of TPA/dornase. ??D/c home on11/02 w/ PleurX catheter, IV abx followed by OPAT, PICC line and PleurX removed on 11/06/19. Call to check and remind about appointments. Mr. Meek is doing well. His PleurX catheter site is without any redness, swelling, drainage. Denies fevers, chills, sweats. Tolerating PO antibiotics well as prescribed by ID. I am doing well except for the humidity. He is aware of appointments on SundayNovember 17 and knows to call with any questions or concerns. documented in this encounter Plan of Treatment Upcoming Encounters Date Type Specialty Care Team Description 01/19/2022 Office Visit Hematology and Oncology Loan Burton, NOLAN [facility] HEMATOLOGY/[place] [address] 01/19/2022 Infusion Hematology and Oncology Canc eled (F-ARIA CANCEL) 01/25/2022 Hospital Gastroenterology Jose Clark MD [facility] [place] [address] 01/25/2022 Surgery Gastroenterology Jose Clark UPPE R GI R, MD ENDOSCOPY [facility] [place] [address] 01/26/2022 Office Visit Hematology and Oncology Fabian Cameron MD [facility] HEMATOLOGY/[place] [address] Loan Burton APRN [facility] HEMATOLOGY/[place] [address] 01/26/2022 Infusion Hematology and Oncology 02/02/2022 Office Visit Hematology and Oncology Fabian Cameron MD [facility] HEMATOLOGY/[place] [address] 02/02/2022 Infusion Hematology and Oncology 02/22/2022 Telephone Hematology and Oncology Siena Lloyd RD [facility] [place] [address] Scheduled Procedures Name Priority Associated Diagnoses Date/Time EGD, UPPER GI ENDOSCOPY EGD with stent vs 2021 12:00 PM EDT cryotherapy. documented as of this encounter Visit Diagnoses Not on filedocumented in this encounter Care Teams Crop Production Advisor Relationship Specialty Start Date End Date Farzaneh Winkler APRN PCP - General General Internal Medicine 06/05/[address] [place] [phone] documented as of this encounter
--- OUTSIDE RECORDS SUMMARY | 2022-01-19 07:36 | XMS_ITS | Encounter Summary ---
:1950 Author Organization [facility] [address] Care Team Providers Name Role Phone JoenamanFarzaneh Daria FRANCISCO Primary Care Provider Reason for Visit Reason Comments Effusion Encounter Details Date Type Department Care Team Description 12/02/2019 Office Visit Thoracic Surgery at [place], Candice Link, Hx o f pleural effusion; [facility] adenocarcinoma, right [facility] [address] [place] TH[place]IC SURG[place] [address] [place] [address] [phone] Social History Tobacco Use Types Packs/Day Years [...] Sign Reading Time Taken Comments Blood Pressure 149/68 12/02/2019 1:26 PM EDT Pulse 98 12/02/2019 1:26 PM EDT Temperature 36.7 ??C (98.1 ??F) 12/02/2019 1:26 PM EDT Respiratory Rate 20 12/02/2019 1:26 PM EDT Oxygen Saturation 97% 12/02/2019 1:26 PM EDT Inhaled Oxygen Concentration - - Weight 137.1 kg (302 lb 4.8 oz) 12/02/2019 1:26 PM EDT Height 183 cm (6' 0.05) 12/02/2019 1:26 PM EDT Body Mass Index 40.95 12/02/2019 1:26 PM EDT documented in this encounter Patient Instructions Patient InstructionsMariana Ervin RN - 12/02/2019 1:45 PM EDT Thank you for visiting Dr. Tolliver in clinic 12/04/19 Dr. Tolliver has stated that you are now on an as needed basis with Thoracic Surgery. Please follow up with your Rigging Up Man. Please call Thoracic surgery at with any questions or concerns. documented in this encounter Progress Notes Candice Tolliver MD - 12/02/2019 1:45 PM EDT Thoracic Surgery Attending Outpatient Follow Up Note MD Marbella Cast APRN-C [place] [address] FAX: Pre Op Dx:??FDG avid right pleural based??nodules??and loculated effusion??with h/o stage IIIA lung cancer ?? Post Op Dx:??h/o stage IIIA lung cancer, recurrent effusion and trapped lung ?? Procedure (09/05/2019):??bronchoscopy, R VATS pleural biopsies and pleurx catheter placement ?? Pathology (09/05/2019):?? Pleural fluid: A few atypical epithelioid cells are noted; the possibility of neoplasia is not absolutely excluded. RIGHT posterior pleura -??Fibrous pleurisy. Inferior RIGHT pleural biopsy - Fibrous and focal fibrinous pleurisy ?? Complications:??empyema ?? Treatment:??intrapleural fibrinolytics, IV abx, removal of pleurx ? HPI:??Alin N Meek??is a??69 y.o.??male??with a h/o stage IIIA lung adenocarcinoma, now s/p R VATS pleural biopsies and pleurX catheter placement for recurrent pleural effusion with cytology showing atypical cells but no overt malingnancy and associated trapped lung c/b empyema (micro showing Coryn ebacterium species) requiring intrapleural fibrinolytics and IV abx. He has completed his abx as prescribed per ID and denies symptoms related to persistent infection such as fatigue, fevers, chills. He reports that he has increased his exercise to walking a 2 minute loop 1-2 times per day. He denies f/c/n/v/worsening SOB/CP. Medications: Current Outpatient Medications on File Prior to Visit Medication Sig Dispense Refill ??? polyethylene glycol (Miralax) 17 gram Powder [...] 2,000 Units by mouth daily. ??? loperamide (IMODIUM A-D) [...] taking: Reported on 11/06/2019) 60 tablet 11 ??? b complex vitamins Capsule Take 1 capsule by mouth daily. Current Facility-Administered Medications on File Prior to Visit Medication Dose Route Frequency Provider Last Rate Last Dose ??? [COMPLETED] iohexoL (OMNIPAQUE) 350 mg/mL solution 0-200 mL 0-200 mL Intravenous Once PRN Candice Mcconnell MD 60 mL at 12/02/19 1250 ??? [COMPLETED] alteplase (CATHFLO) injection 2 mg 2 mg INTRA-CATHETER Once Candice Tolliver MD 2 mgat 12/02/19 1250 Physical Exam: BP 149/68 (Patient Position: Sitting) Pulse 98 Temp 36.7 ??C (98.1 ??F) (Temporal) Resp 20 Ht 183 cm (6' 0.05) Wt (!) 137.1 kg (302 lb 4.8 oz) SpO2 97% BMI 40.95 kg/m?? General Appearance: Alert, cooperative, no distress, appears stated age Nk: Supple, symmetrical, trachea midline, no palpable cervical adenopathy; thyroid: not enlarged, symmetric, no tenderness/mass/nodules Lungs: Clear to auscultation bilaterally, diminished on Right side., respirations unlabored, no wheezes, crackles or ronchi. Heart: Regular rate and rhythm, S1 and S2 normal, no murmur, rub, or gallop Abdomen: Soft, non-tender, rounded, bowel sounds active all four quadrants, no masses, no organomegaly Extremities: Extremities normal, atraumatic, no cyanosis or edema Wound/Incision: Clean, dry, intact, with evidence of good wound healing Imaging: I have independently visualized the following studies: CT Chest (12/02/2019): 1. Slightly decreased pleural fluid and minimal residual scattered air post right Pleurx removal. 2. Stable post treatment change/fibrosis in right lung. 3. Unchanged right adrenal adenomas. Assessment: Alin Meek is a 69 y.o. male with a h/o stage IIIA lung adenocarcinoma, s/p R VATS pleural biopsies and pleurX catheter placement for benign recurrent pleural effusion with associated trapped lung c/b empyema s/p intrapleural fibrinolytics. He is currently recovering well and without signs/symptoms of active infection. Plan: 1. Continue to abstain from smoking 2. 30 minutes of exercise daily at a minimum 3. RTC PRN 4. Follow up with Medical Oncology as scheduled 5. Call with any questions or concerns Gabriel Jarrell APRN I have seen the patient and reviewed [...] associated trapped lung c/b empyema s/p intrapleural fibrinolytics (pleurx catheter removed). He is currently recovering well and without signs/symptoms of active infection. Plan: 1. Continue to abstain from smoking 2. 30 minutes of exercise daily at a minimum -- he needs to really increase the frequency and intensity of his exercise 3. RTC PRN 4. Follow up with Dr. Sepulveda as scheduled 5. Follow up with his PCP as scheduled 6. Weight loss program -- he should try to eat a healthy diet and with an exercise program can achieve a 1-2 lbs weight loss per week. 7. Call with any questions or concerns CANDICE TOLLIVER MD documented in this encounter Plan of Treatment Upcoming Encounters Date Type Specialty Care Team Description 01/19/2022 Office Visit Hematology and Oncology Loan Burton, CHILDBIRTH AND INFANT CARE TEACHER [facility] HEMATOLOGY/[place] [address] 01/19/2022 Infusion Hematology and Oncology Canc eled (F-ARIA CANCEL) 01/25/2022 Hospital Gastroenterology Jose Clark MD [facility] GASTROENTEROLOG [place] [address] 01/25/2022 Surgery Gastroenterology Jose Clark EGD, LOLA Yates MD ENDOSCOPY [facility] DR GASTROENTEROLOG [place] [address] 01/26/2022 Office Visit Hematology and Oncology Fabian Cameron MD [facility] DR HEMATOLOGY/[place] [address] Loan Burton, CHILDBIRTH AND INFANT CARE TEACHER [facility] HEMATOLOGY/[place] [address] 01/26/2022 Infusion Hematology and Oncology 02/02/2022 Office Visit Hematology and Oncology Fabian Cameron MD [facility] HEMATOLOGY/[place] [address] 02/02/2022 Infusion Hematology and Oncology 02/22/2022 Telephone Hematology and Oncology Siena Lloyd, MUKUND [facility] DRIVE HEMATOLOGY [place] [address] Scheduled Procedures Name Priority Associated Diagnoses Date/Time EGD, UPPER GI ENDOSCOPY EGD with stent vs 2021 12:00 PM EDT cryotherapy. documented as of this encounter Visit Diagnoses Diagnosis Hx of pleural effusion Personal history of other diseases of re spiratory system Primary lung adenocarcinoma, right documented in this encounter Care Teams Weigher And Charger Relationship Specialty Start Date End Date Farzaneh Winkler, CHILDBIRTH AND INFANT CARE TEACHER PCP - General General Internal Medicine 06/05/[address] [place] [id number] documented as of this encounter
--- OUTSIDE RECORDS SUMMARY | 2022-01-19 07:36 | XMS_ITS | Encounter Summary ---
:1950 Author Organization [facility] [place] [address] Care Team Providers Name Role Phone Peterson Farzaneh Huff APRN Primary Care Provider Encounter Details Date Type Department Care Team Description 11/01/2020 Ext Surgery or [facility] Antony Coleman Dy spnea, unspecified Single Event Hospital MD type [address] [facility] Coleman, [place] [phone] Social History Tobacco Use Types [...] documented as of this encounter Progress Notes Antony Coleman MD - 11/01/2020 9:20 AM EDT Lexiscan MIBI Stress Test- Final Report Alin Meek 1950 [facility] Referring: Peterson Indication: dyspnea Date: 11/01/2020 Clinical: Max Exercise: Lexiscan 0.4mg IV Symptoms: None NB: This was a possible 2-day stress test due to body habitus EKG Baseline: nsr Ischemic Changes: none Arrhythmias: none Details: Stress Images: 27.0 mC MIBI, SPECT: -no perfusion deficit Gated Images: no wall motion abnormalities, EF normal, no TID IMPRESSION: No perfusion deficit on stress-only imaging; thus no evidence of inducible ischemia nor infarct. Rest images not required. Preserved LV systolic function. Electronically Signed: Antony Coleman MD, 11/01/2020 1:42 PM documented in this encounter Plan of Treatment Upcoming Encounters Date Type Specialty Care Team Description 01/19/2022 Office Visit Hematology and Oncology Loan Burton APRN [facility] HEMATOLOGY/[place] [address] 01/19/2022 Infusion Hematology and Oncology Canc eled (F-ARIA CANCEL) 01/25/2022 Hospital Gastroenterology Jose Clark MD [facility] [place] [address] 01/25/2022 Surgery Gastroenterology Jose Clark UPPE R GI R, MD ENDOSCOPY [facility] [place] [address] 01/26/2022 Office Visit Hematology and Oncology Fabian Cameron MD [facility] HEMATOLOGY/[place] [address] Loan Burton APRN [facility] HEMATOLOGY/[place] [address] 01/26/2022 Infusion Hematology and Oncology 02/02/2022 Office Visit Hematology and Oncology Fabian Cameron MD [facility] HEMATOLOGY/[place] [address] 02/02/2022 Infusion Hematology and Oncology 02/22/2022 Telephone Hematology and Oncology Siena Lloyd RD [facility] DRIVE [place]ATOLOGY [place] [address] Scheduled Procedures Name Priority Associated Diagnoses Date/Time EGD, UPPER GI ENDOSCOPY EGD with stent vs 2021 12:00 PM EDT cryotherapy. documented as of this encounter Procedures Procedure Name Priority Date/Time Associated Diagnosis Comme nts STRESS TEST SCAN 11/01/2020 12:00 AM Resu lts for this EDT procedure are i n the results section. ECG SCAN 11/01/2020 12:00 AM Results for this EDT procedure are i n the results section. documented in this encounter Results SCAN DOC: STRESS TEST (11/01/2020 12:00 AM EDT) Narrative 11/01/2020 12:00 AM EDT This result has an attachment that is no t available. Ordered by an unspecified provider. Scanning Provider MEDIA MGR SCAN EXT ORDR/RSLT SCAN DOC: ECG (11/01/2020 12:00 AM EDT) Narrative 11/01/2020 12:00 AM EDT This result has an attachment that is no t available. Ordered by an unspecified provider. Scanning Provider MEDIA MGR SCAN EXT ORDR/RSLT documented in this encounter Visit Diagnoses Diagnosis Dyspnea, unspecified type documented in this encounter Care Teams Lever Miller Relationship Specialty Start Date End Date Farzaneh Winkler APRN PCP - General General Internal Medicine 06/05/[address] [place] [id number] documented as of this encounter
--- OUTSIDE RECORDS SUMMARY | 2022-01-19 07:36 | XMS_ITS | Encounter Summary ---
:1950 [place] [address] Care Team Providers Name Role Phone Farzaneh Winkler SENIOR GRAPHIC DESIGNER Primary Care Provider Encounter Details Date Type Department Care Team Description 2021 Ancillary Procedure Radiology Library at [place] Winkler, [facility] SENIOR GRAPHIC DESIGNER [address] [address] [place] [address] [phone] Social History Tobacco Use Types Packs/Day Years [...] Office Visit Hematology and Oncology Loan Burton, SENIOR GRAPHIC DESIGNER [facility] HEMATOLOGY/[place] [address] 01/19/2022 Infusion Hematology and Oncology Canc eled (F-ARIA CANCEL) 01/25/2022 Hospital Gastroenterology Jose Clark MD [facility] [place] [address] 01/25/2022 Surgery Gastroenterology Jose Clark EGD, LOLA Yates MD ENDOSCOPY [facility] [place] [address] 01/26/2022 Office Visit Hematology and Oncology Fabian Cameron MD [facility] DR HEMATOLOGY/[place] [address] Loan Burton APRN [facility] HEMATOLOGY/[place] [address] 01/26/2022 Infusion Hematology and Oncology 02/02/2022 Office Visit Hematology and Oncology Fabian Cameron MD [facility] DR HEMATOLOGY/[place] [address] 02/02/2022 Infusion Hematology and Oncology 02/22/2022 Telephone Hematology and Oncology Siena Lloyd, MUKUND [facility] DRIVE [place] [address] Scheduled Procedures Name Priority Associated Diagnoses Date/Time EGD, UPPER GI ENDOSCOPY EGD with stent vs 2021 12:00 PM EDT cryotherapy. documented as of this encounter Procedures Procedure Name Priority Date/Time Associated Diagnosis Comme nts FILM LIBRARY Routine 2021 12:05 AM Results for this STORAGE ONLY CT EST procedure ar e in CHEST the results section. documented in this encounter Results Film Library- Storage Only CT Chest (2021 12:05 AM EST) Specimen (Source) Anatomical Location Collection Method / Collectio n Time Received Time / Laterality Volume Narrative [facility] - 07/08/2021 8:50 AM EST This exam is auto-finalizing. It's purpo se is for storage only. Farzaneh Winkler APRN [employer] FILM LIBRARY ORDERABLES Performing Organization Address City/State/ZIP Code Phon e Number [facility] [place], [place] documented in this encounter Visit Diagnoses Not on filedocumented in this encounter Care Teams Inseam Trimmer Relationship Specialty Start Date End Date Farzaneh Winkler APRN PCP - General General Internal Medicine 06/05/[address] [place] [phone] documented as of this encounter
--- OUTSIDE RECORDS SUMMARY | 2022-01-19 07:36 | XMS_ITS | Encounter Summary ---
:1950 Author Organization [facility] [place] [address] Care Team Providers Name Role Phone PetersonRamónrubio Huff APRN Primary Care Provider Reason for Visit Reason Comments Follow-up Encounter Details Date Type Department Care Team Description 11/06/2019 Office Visit Thoracic Surgery at [place]; [facility] MD Luz Primary lung adenocarcinoma, right [facility] [address] [place] Thoracic Surgery [address] [place] [address] [phone] Social History Tobacco Use Types Packs/Day Years [...] Sign Reading Time Taken Comments Blood Pressure 152/69 11/06/2019 1:42 PM EDT Pulse 103 11/06/2019 1:42 PM EDT Temperature 37 ??C (98.6 ??F) 11/06/2019 1:42 PM EDT Respiratory Rate - - Oxygen Saturation 93% 11/06/2019 1:42 PM EDT Inhaled Oxygen Concentration - - Weight 135.9 kg (299 lb 9.6 11/06/2019 1:42 PM with tsering es oz) EDT Height 186.9 cm (6' 1.58) 11/06/2019 1:42 PM withs tsering es EDT Body Mass Index 38.9 11/06/2019 1:42 PM EDT documented in this encounter Patient Instructions Patient InstructionsMariana Ervin RN - 11/06/2019 1:45 PM EDT Thank you for visiting Dr. Bernal in clinic 11/06/19 Dr. Bernal would like for you to see Dr. Jose on you scheduled Hospital Check appointment of Sunday. ?? Exercise each day for 30 minutes or longer. Daily aerobic exercise for at least 30 minutes will help improve your endurance and improve the breathing capacity of your lungs. This means that you are breathing hard, your heart is beating fast and that you are sweating. Examples of this include walking, biking, swimming, and using a treadmill or stationary bike. Please call Thoracic surgery at with any questions or concerns. documented in this encounter Progress Notes Marbella Jarrell APRN - 11/06/2019 1:45 PM EDT Thoracic Surgery Attending Outpatient Consultation Note Stan Bernal MD [place] [address] FAX: Today we saw Mr. Alin Meek in follow-up from his tpa/dornase for a clogged pleurX catheter withpleural fluid positive for Corynebacterium. He was discharged on 11/03/19 and presents today in follow up. He reports draining a very small amount from his pleurX for the last 3 days. He last drained his pleurx this morning. He is breathing comfortably and denies fevers. He is walking daily at home andstates that his energy has been better since being home. On physical examination today, his height is 186.9 cm (6' 1.58) and weight is 135.9 kg (299 lb 9.6 oz). His temporal temperature is 37 ??C (98.6 ??F). His blood pressure is 152/69 and his pulse is 103(abnormal). His oxygen saturation is 93%. Body mass index is 38.9 kg/m??. In general, he is in no acute distress. His pupils are reactive. His lungs are clear to auscultation bilaterally. His heart hasa regular rate with no murmurs. His incisions are healing well with no erythema or drainage. His abdomen is rounded, soft and nontender. His extremities are warm with no edema. Neurologically, he is grossly intact. His pleurx site is dry and intact with no evidence of infection. CXR 11/06/2019: Similar appearance of the right hemithorax compared to prior except slightly decreased pleural-parenchymal opacity in upper to mid hemithorax, but minimally increased fluid at the base. In summary, Mr. Alin Meek has made a good recovery from his 6 cycles of tpa/dornase for a clogged pleurx catheter. He has had very little output from his pleurX catheter and it was therefore removed today in clinic. He was seen by Infectious Disease today also and he will have his PICC removed and transition to oral antibiotics. We reviewed with him the recommended follow-up imaging plan of a CXR with contrast for which he will return to see Dr Jose in 2 weeks. This patient was seen and examined with Dr Bernal. Marbella Jarrell APRN 11/06/2019 Thoracic Surgery [facility] I have seen the patient and reviewed the COAT PRESSER's above note and I agree with the details as written. I have personally reviewed the relevant imaging. The assessment and plan were formulated in discussion with me and I agree with them as documented. Stan Bernal MD documented in this encounter Procedure Notes Marbella Jarrell APRN - 11/06/2019 1:45 PM EDTProcedure(s): REMOVAL OF INDWELLING PLEURAL CATHETER Pre-Procedure Diagnose(s): Pleural effusion Post-Procedure Diagnose(s): Pleural effusion PleurX catheter removal procedure note: Consent was signed in clinic. Patient was positioned on exam table with Right side up. The area surrounding the Right PleurX was prepped with chlorhexidine. The field was draped with sterile towels. Approximately 10 cc of 1% lidocaine was administered around the PleurX insertion site. A hemostat was then used to dissect adjacent the cuff of the PleurX in order to circumferentially release the adhesions between the PleurX cuff and subcutaneous tissues. The patient was asked to perform a valsalva and the PleurX catheter was removed. A sterile dressing was applied and pressure was held for approximately 3 minutes. No evidence of bleeding noted. Marbella Jarrell APRN 11/06/2019 As the attending, I was present and immediately available throughout the procedure. Stan Bernal MD documented in this encounter Plan of Treatment Upcoming Encounters Date Type Specialty Care Team Description 01/19/2022 Office Visit Hematology and Oncology Loan Burton APRN [facility] HEMATOLOGY/[place] [address] 01/19/2022 Infusion Hematology and Oncology Canc eled (F-ARIA CANCEL) 01/25/2022 Hospital Gastroenterology Jose Clark MD [facility] [place] [address] 01/25/2022 Surgery Gastroenterology Jose Clark UPREENA Yates GI MD [place] ENDOSCOPY [facility] [place] [address] 01/26/2022 Office Visit Hematology and Oncology Fabian Cmaeron MD [facility] HEMATOLOGY/[place] [address] Loan Burton APRN [facility] HEMATOLOGY/[place] [address] 01/26/2022 Infusion Hematology and Oncology 02/02/2022 Office Visit Hematology and Oncology Fabian Cameron MD [facility] HEMATOLOGY/[place] [address] 02/02/2022 Infusion Hematology and Oncology 02/22/2022 Telephone Hematology and Oncology Siena Lloyd RD [facility]IVE [place] [address] Scheduled Procedures Name Priority Associated Diagnoses Date/Time EGD, UPPER GI ENDOSCOPY EGD with stent vs 2021 12:00 PM EDT cryotherapy. documented as of this encounter Visit Diagnoses Diagnosis Pleural effusion Unspecified pleural effusion Primary lung adenocarcinoma, right documented in this encounter Care Teams Road Builder Relationship Specialty Start Date End Date Farzaneh Winkler, COAT PRESSER PCP - General General Internal Medicine 06/05/[address] [place] [phone] documented as of this encounter
--- OUTSIDE RECORDS SUMMARY | 2022-01-19 07:36 | XMS_ITS | Encounter Summary ---
:1950 Author Organization [facility] [place] [address] Care Team Providers Name Role Phone Peterson Farzaneh Huff APRN Primary Care Provider Reason for Visit Reason Onset Date Comments Other 11/06/2019 PleurX drainage upda te Encounter Details Date Type Department Care Team Description 11/06/2019 Telephone Thoracic Surgery at [facility] (PleurX drainage [facility] RN update) [place] [address] Social History Tobacco Use Types Packs/Day [...] Telephone Encounter - Mariana Ervin RN - 11/06/2019 9:14 AM EDT TC from Mrs. Meek Hx: stage IIIA lung adenocarcinoma s/p R VATS pleural bx and pleurX placement for recurrent right sided effusion who is admitted with concerns of clogged pleurX. 6 cycles of TPA/dornase. D/c home on 11/02 w/ PleurX catheter, IV abx followed by OPAT. Mrs. Meek is calling today to ask about Mr. Meek's IV antibiotics. Explained that she needs to call either ID or [facility] in [place] to obtain more antibiotic bulbs to continue as stated until 11/24/2019 per ID. Mr. Meek denies any SOB, difficulty breathing, fevers, chills, sweats, redness at site. I feel the best than I have ever felt. Mr. Meek's output from his PleurX Tu11/03 - 2 drops Wed 11/04 - drops Th11/05 - nothing Per Dr. Jose will bring in today as they cannot get to [facility] tomorrow, for CXR and most likely PleurX removal. Mrs. Meek is aware of plan and knows of appointment times. She knows to call with any questions or concerns. documented in this encounter Plan of Treatment Upcoming Encounters Date Type Specialty Care Team Description 01/19/2022 Office Visit Hematology and Oncology Loan Burton, NOLAN [facility] HEMATOLOGY/[place] [address] 01/19/2022 Infusion Hematology and Oncology Canc eled (F-ARIA CANCEL) 01/25/2022 Hospital Gastroenterology Jose Clark MD [facility] [place] [address] 01/25/2022 Surgery Gastroenterology Jose Clark UPPE R GI R, MD ENDOSCOPY [facility] [place] [address] 01/26/2022 Office Visit Hematology and Oncology Fabian Cameron MD [facility] HEMATOLOGY/[place] [address] Loan Burton, CHROME TANNING DRUM OPERATOR [facility] HEMATOLOGY/[place] [address] 01/26/2022 Infusion Hematology and Oncology 02/02/2022 Office Visit Hematology and Oncology Fabian Cameron MD [facility] HEMATOLOGY/[place] [address] 02/02/2022 Infusion Hematology and Oncology 02/22/2022 Telephone Hematology and Oncology Siena Lloyd RD [facility] DRIVE [place] [address] Scheduled Procedures Name Priority Associated Diagnoses Date/Time EGD, UPPER GI ENDOSCOPY EGD with stent vs 2021 12:00 PM EDT cryotherapy. documented as of this encounter Results XR Chest PA & [...] Diagnoses Diagnosis Pleural effusion Unspecified pleural effusion Pleural effusion Unspecified pleural effusion documented in this encounter Care Teams International Freight Forwarder Relationship Specialty Start Date End Date Farzaneh Winkler, CHROME TANNING DRUM OPERATOR PCP - General General Internal Medicine 06/05/[address] [place] [address] documented as of this encounter
--- OUTSIDE RECORDS SUMMARY | 2022-01-19 07:36 | XMS_ITS | Encounter Summary ---
:1950 Author Organization [facility] [place] [address] Care Team Providers Name Role Phone Farzaneh Winkler Daria FRANCISCO Primary Care Provider Encounter Details Date Type Department Care Team Description 11/06/2019 Unscheduled Infectious Disease Elizabeth Peresma o f pleura; Encounter at [facility] Otf Escobar MD Sequela of Corynebacterium infection [facility] [address], [place] [id number] [phone] Social History Tobacco Use Types Packs/Day Years [...] as of this encounter Progress Notes Otf Peres MD - 11/06/2019 2:43 PM EDT INFECTIOUS DISEASE CLINIC FOLLOW-UP Background: Empyema in setting of right sided PleurX Subjective: Doing well since discharge home on 11/02. Has been getting vancomycin via PICC without problems. Breathing well. Per thoracic surgeon Dr. Petty, PleurX will be removed today. Physical Exam: General Looks great, alert and engaged Extremities Right arm PICC Laboratory Data: Lab Results Component Value Date WBC 11.0 (H) 11/01/2019 HGB 11.5 (L) 11/01/2019 HCT 37.1 (L) 11/01/2019 MCV 77.6 (L) 11/01/2019 PLATELET 405 (H) 11/01/2019 Lab Results Component Value Date CREATININE 1.31 11/02/2019 Microbiology: 10/27 pleural fluid from PleurX Corynebacterium species MINIMUM INHIBITORY CONCENTRATION Ciprofloxacin 1 Sensitive Clindamycin 1 Intermediate Penicillin 0.064 Sensitive Vancomycin 1 Sensitive Imaging/Studies/Procedures: CXR Similar appearance of the right hemithorax compared to prior except slightly decreased pleural-parenchymal opacity in upper to mid hemithorax, but minimally increased fluid at the base. Impression: Doing well after recent admission for clogged PleurX for stage IIIa lung cancer s/p right VATS. Clinically, he did not have signs of serenity infection, but considering his leukocytosis and a pleural fluid culture obtained from the PleurX which grew Corynebacterium, we felt it to be prudent to treat for an empyema. He seemed to improve on vancomycin and we had planned of 4 week course, but the organism was reported to be penicillin and fluoroquinolone susceptible after his discharge. I recommend stopping vancomycin and completing the remaining 18 days of antibiotic therapy (for a total 4 week course) with oral amoxicillin 500 mg PO TID. Now that the PleurX is removed, the corynebacterium is less of a concern. Therefore, I do not think that we need a fluoroquinolone and can use amox icillin, which has a much more benign side effect profile. I notified the vascular access team to remove the PICC. Prescription sent to [facility] pharmacy. I am not scheduling dedicated ID clinic follow-up, but please reach out if we can be of help. Otf Peres MD Infectious Disease Attending I spent a total of 40 minutes, 30 minutes of which were spent on counseling and coordination of care. documented in this encounter Plan of Treatment Upcoming Encounters Date Type Specialty Care Team Description 01/19/2022 Office Visit Hematology and Oncology Loan Burton, NOLAN [facility] HEMATOLOGY/[place] [address] 01/19/2022 Infusion Hematology and Oncology Canc eled (F-ARIA CANCEL) 01/25/2022 Hospital Gastroenterology Jose Clark MD [facility] [place] [address] 01/25/2022 Surgery Gastroenterology Jose Clark UPPE R GI R, MD ENDOSCOPY [facility] [place] [address] 01/26/2022 Office Visit Hematology and Oncology Fabian Cameron MD [facility] HEMATOLOGY/[place] [address] Loan Burton APRN [facility] HEMATOLOGY/[place] [address] 01/26/2022 Infusion Hematology and Oncology 02/02/2022 Office Visit Hematology and Oncology Fabian Cameron MD [facility] HEMATOLOGY/[place] [address] 02/02/2022 Infusion Hematology and Oncology 02/22/2022 Telephone Hematology and Oncology Siena Lloyd RD [facility] DRIVE [place] [address] Scheduled Procedures Name Priority Associated Diagnoses Date/Time EGD, UPPER GI ENDOSCOPY EGD with stent vs 2021 12:00 PM EDT cryotherapy. documented as of this encounter Visit Diagnoses Diagnosis Empyema of pleura Empyema without mention of fistula Sequela of Corynebacterium infection documented in this encounter Care Teams Family Member Caretaker Relationship Specialty Start Date End Date Farzaneh Winkler, INSPECTING AND TESTING LEAD HAND PCP - General General Internal Medicine 06/05/[address] [place] [address] documented as of this encounter
--- OUTSIDE RECORDS SUMMARY | 2022-01-19 07:36 | XMS_ITS | Encounter Summary ---
:1950 Author Organization [facility] [place] [address] Care Team Providers Name Role Phone Farzaneh Winkler Daria FRANCISCO Primary Care Provider Encounter Details Date Type Department Care Team Description 11/07/2019 Notes Only Infectious Disease a t [facility] Gali Jones, [place] [address] Social History Tobacco Use Types Packs/Day [...] documented as of this encounter Progress Notes Gali Jones, RN - 11/07/2019 11:12 AM EDT OPAT: Order / Recommendation for Post Discharge IV Antibiotic Management To: Otf Jarvis [phone] Specialty: ID Diagnosis: Infected PleurX Catheter, Empyema Microorganisms being treated: Corynebacterium Antibiotic Allergies: No Known Antibiotic Drug Allergies Antibiotic: Vancomycin 750 mg IV Every 12 Hours Special Instructions: Vancomycin Trough Goal: 10-15. Please draw Vancomyin Trough, BUN/Cr 30 minutesprior to Vancomycin dose. Start date: 10/27/2019 Anticipated stop date: 11/24/2019 Labs: Q Sunday: CBC/Diff, CMP Labs: Q Sunday Vancomycin trough Labs: Other Labs: Other: see Additional Labs: Please obtain 1st Vancomycin Trough, BUN/Cr on 11/05/2019, then change toweekly labs on Sunday based on results Last documented weight (kg): 133 kg (293 lb 4.8 oz) Last documented height (cm): 182.9 cm (6') Infectious Disease Attending: Otf Butler Late Entry: Per Dr. Oft Jarvis, Mr. Meek no longer needs IV Vancomycin therapy and may stop his infusions as of 11/06/2019. Plan for 18 days of oral Amoxicillin 500 mg, 1 tablet 3x/day. PICC line removal order was entered in eD-H. Vascular Access Team notified and the PICC line was removed at [facility] while Mr. Meek was at , Unit C, Room 12. [facility] Care notified of completion of IV Vancomycin therapy on 11/05. 11/07/19: [facility] notified that the IV Vancomycin course had been ended and that the PICC line had been removed. Gali Jones RN, OPAT Program Pager: [phone] documented in this encounter Plan of Treatment Upcoming Encounters Date Type Specialty Care Team Description 01/19/2022 Office Visit Hematology and Oncology Loan Burton, NOLAN [facility] HEMATOLOGY/[place] [address] 01/19/2022 Infusion Hematology and Oncology Canc eled (F-ARIA CANCEL) 01/25/2022 Hospital Gastroenterology Jose Clark MD [facility] [place] [address] 01/25/2022 Surgery Gastroenterology Jose Clark UPPE R GI R, MD ENDOSCOPY [facility] [place] [address] 01/26/2022 Office Visit Hematology and Oncology Fabian Cameron MD [facility] DR HEMATOLOGY/[place] [address] Loan Burton [employer]ORTS JOURNALIST [facility] HEMATOLOGY/[place] [address] 01/26/2022 Infusion Hematology and Oncology 02/02/2022 Office Visit Hematology and Oncology Fabian Cameron MD [facility] HEMATOLOGY/[place] [address] 02/02/2022 Infusion Hematology and Oncology 02/22/2022 Telephone Hematology and Oncology Siena Lloyd, MUKUND [facility] [address] [place] [address] Scheduled Procedures Name Priority Associated Diagnoses Date/Time EGD, UPPER GI ENDOSCOPY EGD with stent vs 2021 12:00 PM EDT cryotherapy. documented as of this encounter Visit Diagnoses Not on filedocumented in this encounter Care Teams It Director Relationship Specialty Start Date End Date Farzaneh Winkler APRN PCP - General General Internal Medicine 06/05/[address] [place] [address] documented as of this encounter
--- OUTSIDE RECORDS SUMMARY | 2022-01-19 07:36 | XMS_ITS | Encounter Summary ---
:1950 Author Organization [facility] [place] [address] Care Team Providers Name Role Phone Farzaneh Winkler APRN Primary Care Provider Encounter Details Date Type Department Care Team Description 04/02/2020 TH Visit Radiation Oncology Lily Akhtar, Charlene rojas neoplasm of (TeleHealth) at [facility] NOLAN lung, unspecified [address] [place] [address] [place] [id number] RADIATION lung [phone] ONCOLOGY [place] [id number] Social History Tobacco Use Types Packs/Day Years [...] documented as of this encounter Progress Notes Lily Akhtar APRN - 04/02/2020 1:45 PM EDT No charge patient in the hospital. documented in this encounter Plan of Treatment Upcoming Encounters Date Type Specialty Care Team Description 01/19/2022 Office Visit Hematology and Oncology Loan Burton APRN [facility] HEMATOLOGY/[place] [address] 01/19/2022 Infusion Hematology and Oncology Canc eled (F-ARIA CANCEL) 01/25/2022 Hospital Gastroenterology Jose Clark MD [facility] [place] [address] 01/25/2022 Surgery Gastroenterology Jose Clark UPPE R GI R, MD ENDOSCOPY [facility] [place] [address] 01/26/2022 Office Visit Hematology and Oncology Fabian Cameron MD [facility] HEMATOLOGY/[place] [address] Loan Burton APRN [facility] HEMATOLOGY/[place] [address] 01/26/2022 Infusion Hematology and Oncology 02/02/2022 Office Visit Hematology and Oncology Fabian Cameron MD [facility] HEMATOLOGY/[place] [address] 02/02/2022 Infusion Hematology and Oncology 02/22/2022 Telephone Hematology and Oncology Siena Lloyd RD [facility] [place] [address] Scheduled Procedures Name Priority Associated Diagnoses Date/Time EGD, UPPER GI ENDOSCOPY EGD with stent vs 2021 12:00 PM EDT cryotherapy. documented as of this encounter Visit Diagnoses Diagnosis Malignant neoplasm of lung, unspecified laterality, unspecified part of lung documented in this encounter Care Teams Winch Driver Relationship Specialty Start Date End Date Farzaneh Winkler, COLLEGE HIRE PCP - General General Internal Medicine 06/05/[address] [place] [phone] documented as of this encounter
--- OUTSIDE RECORDS SUMMARY | 2022-01-19 07:36 | XMS_ITS | Encounter Summary ---
:1950 Author Organization [facility] [place] [address] Care Team Providers Name Role Phone Farzaneh Winkler APRN Primary Care Provider Encounter Details Date Type Department Care Team Description 03/06/2020 Ancillary Procedure Radiology Library at [place] Winkler, [facility] TIRE MAKER [address] [address] [place] [address] [phone] Social History Tobacco Use Types Packs/Day Years [...] Office Visit Hematology and Oncology Loan Burton, TIRE MAKER [facility] HEMATOLOGY/[place] [address] 01/19/2022 Infusion Hematology and Oncology Canc eled (F-ARIA CANCEL) 01/25/2022 Hospital Gastroenterology Jose Clark MD [facility] GASTROENTEROLOG [place] [address] 01/25/2022 Surgery Gastroenterology Jose Clark EGD, UPREENA Yates MD ENDOSCOPY [facility] GASTROENTEROLOG [place] [address] 01/26/2022 Office Visit Hematology and Oncology Fabian Cameron MD [facility] DR HEMATOLOGY/[place] [address] Loan Burton APRN [facility] HEMATOLOGY/[place] [address] 01/26/2022 Infusion Hematology and Oncology 02/02/2022 Office Visit Hematology and Oncology Fabian Cameron MD [facility] DR HEMATOLOGY/[place] [address] 02/02/2022 Infusion Hematology and Oncology 02/22/2022 Telephone Hematology and Oncology Siena Lloyd, MUKUND [facility] HEMATOLOGY [place] [address] Scheduled Procedures Name Priority Associated Diagnoses Date/Time EGD, UPPER GI ENDOSCOPY EGD with stent vs 2021 12:00 PM EDT cryotherapy. documented as of this encounter Procedures Procedure Name Priority Date/Time Associated Diagnosis Comme nts FILM LIBRARY Routine 03/06/2020 12:00 AM Results for this STORAGE ONLY NM EDT procedure ar e in PET/CT the results section. documented in this encounter Results Film Library- Storage Only NM Pet / CT (03/06/2020 12:00 AM EDT) Specimen (Source) Anatomical Location Collection Method / Collectio n Time Received Time / Laterality Volume Narrative DH RAD - 03/17/2020 2:38 PM EDT This exam is auto-finalizing. It's purpo se is for storage only. Farzaneh Winkler APRN [employer] FILM LIBRARY ORDERABLES Performing Organization Address City/State/ZIP Code Phon e Number [place], [place] documented in this encounter Visit Diagnoses Not on filedocumented in this encounter Care Teams Tobacco Drying Machine Operator Relationship Specialty Start Date End Date Farzaneh Winkler APRN PCP - General General Internal Medicine 06/05/[address] [place] [address] documented as of this encounter
--- OUTSIDE RECORDS SUMMARY | 2022-01-19 07:37 | XMS_ITS | Encounter Summary ---
:1950 Author Organization [facility] [place] [address] Care Team Providers Name Role Phone Farzaneh Winkler Daria FRANCISCO Primary Care Provider Reason for Visit Reason Comments Lung Cancer Encounter Details Date Type Department Care Team Description 10/21/2019 Office Visit Thoracic Surgery at [facility] Prim ary lung [facility] adenocarcinoma, right On license of [facility] [address] [place] TH[place] SURGERY [id number] [place] [id number] [phone] Social History Tobacco Use Types Packs/Day Years [...] Sign Reading Time Taken Comments Blood Pressure 116/69 10/21/2019 10:45 AM EDT Pulse 104 10/21/2019 10:45 AM EDT Temperature 36.7 ??C (98.1 ??F) 10/21/2019 10:45 AM EDT Respiratory Rate 20 10/21/2019 10:45 AM EDT Oxygen Saturation 97% 10/21/2019 10:45 AM EDT Inhaled Oxygen Concentration - - Weight 138.8 kg (306 lb) 10/21/2019 10:35 AM EDT Height 182 cm (5' 11.65) 10/21/2019 10:40 AM EDT Body Mass Index 41.9 10/21/2019 10:35 AM EDT documented in this encounter Patient Instructions Patient InstructionsMariana Ervin RN - 10/21/2019 12:15 PM EDT Thank you for visiting Dr. Tolliver in clinic 10/27/19 Dr. Tolliver would like you to drain your PleurX catheter twice a day for at least one week. Please call with outputs. You will receive a letter in the mail to schedule this appointment. ?? Exercise each day for 30 minutes [...] encounter Progress Notes Candice Tolliver MD - 10/21/2019 12:15 PM EDT Images from the original note were not included. Thoracic Surgery Attending Outpatient Follow Up Note MD Belen Cast PA-C [place] [id number] FAX: Pre Op Dx: FDG avid right pleural based nodules and loculated effusion with h/o stage IIIA lung cancer Post Op Dx: h/o stage IIIA lung cancer, recurrent effusion and trapped lung Procedure (09/05/2019): bronchoscopy, R VATS pleural biopsies and pleurx catheter placement Pathology (09/05/2019): Pleural fluid: A few atypical epithelioid cells are noted; the possibility of neoplasia is not absolutely excluded. RIGHT posterior pleura - Fibrous pleurisy. (see Discussion.) Inferior RIGHT pleural biopsy - Fibrous and focal fibrinous pleurisy Complications: none Treatment: attempted tpa into pleurx catheter HPI: Alin Meek is a 69 y.o. male with a h/o stage IIIA lung adenocarcinoma, now s/p R VATS pleural biopsies and pleurX catheter placement for recurrent pleural effusion with cytology showing atypical cells but no overt malingnancy and associated trapped lung who presents to discuss removal of pl eurx. His output has decreased over the last two weeks to nearly zero over currently. His breathing feels overall the same but is still not great. The pleurx insertion site is erythematous and appears irritated. His has been wiping the area with alcohol wipes but is not washing it with soap and water. He denies f/c/n/v/CP. Medications: Current Outpatient Medications on File Prior to Visit Medication Sig Dispense Refill ??? amLODIPine (Norvasc) 10 mg Tablet Take [...] Take 2,000 Units by mouth daily. ??? losartan (COZAAR) 25 mg Tablet Take 25 mg by mouth daily. ??? chlorthalidone (HYGROTEN) 25 mg Tablet Take 25 mg by mouth daily. ??? ALBUTEROL INHL Inhale into the lungs every 4 hours as needed. ??? triamcinolone (KENALOG) 0.1 % Cream Apply topically 2 times daily as needed. ??? [DISCONTINUED] amLODIPine (NORVASC) 10 mg Tablet Take 10 mg by mouth daily. ??? folic acid (Folvite) 1 mg Tablet Take 1 mg by mouth daily. ??? b complex vitamins Capsule Take 1 capsule by mouth daily. ??? loperamide (IMODIUM A-D) 2 mg Capsule Take 2 mg by mouth 4 times daily as needed for Diarrhea. No current facility-administered medications on file prior to visit. Physical Exam: BP 116/69 (Patient Position: Sitting) Pulse (!) 104 Temp 36.7 ??C (98.1 ??F) (Temporal) Resp 20 Ht 182 cm (5' 11.65) Wt (!) 138.8 kg (306 lb) SpO2 97% BMI 41.90 kg/m?? General Appearance: Alert, cooperative, no distress, appears stated age Nk: Supple, symmetrical, trachea midline Lungs: Decreased at the right base, clear to auscultation left, respirations unlabored, no wheezes, crackles or ronchi. Heart: Regular rate and rhythm, S1 and S2 normal, no murmur, rub, or gallop Abdomen: Obese, soft, non-tender, bowel sounds active all four quadrants, no masses, no organomegaly Extremities: Extremities normal, atraumatic, no cyanosis or edema Wound/Incision: pleurx insertion site as above. Imaging: I have independently visualized the following studies: CXR (10/21/2019): Loculated right sided pleural effusion has reaccumulated. The pneumothorax has resolved. Assessment: Alin Meek is a 69 y.o. male with a h/o stage IIIA lung adenocarcinoma, now s/p R VATS pleuralbiopsies and pleurX catheter placement for recurrent effusion and trapped lung. CXR with increased effusion and the pleurx is not draining. It is likely clogged. Will administer intrapleural tpa in an attempt to drain effusion. Plan: 1. Intrapleural tpa 10mg in 30ml , given via right pleurx and flushed with 30cc sterile saline givenlength of tubing. pleurx capped and pt provided strict instructions to drain once at home and call with output/issues. 2. 30 minutes of exercise daily at a minimum 3. RTC pending pleurx output 4. Please wash insertion site with soap and water and pat dry. 5. Call with any questions Belen Burns PA-C 10/21/2019 Thoracic Surgery [facility] I have seen the patient and reviewed the PA/resident's above history and I agree with the details aswritten. The assessment and plan were formulated in discussion with me and I agree with them as documented. Assessment: Alin Meek is a 69 y.o. male with a h/o stage IIIA lung adenocarcinoma (tx with definitive chemo/XRT), now s/p R VATS pleural biopsies and pleurX catheter placement for recurrent effusion and trapped lung. CXR with increased effusion and the pleurx is not draining. It is likely clogged. Will administer intrapleural tpa in an attempt to drain effusion. The site does not appear infected, just irritated. Plan: 1. Intrapleural tpa 10mg in 30ml , given via right pleurx and flushed with 30cc sterile saline givenlength of tubing. pleurx capped and pt provided strict instructions to drain once at home and call with output/issues. 2. 30 minutes of exercise daily at a minimum 3. RTC pending pleurx output -- he should call with outputs and let us know. Drain BID for a week 4. Please wash insertion site with soap and water and pat dry. He can use abx ointment at site as well. 5. Call with any questions CANDICE TOLLIVER MD documented in this encounter Plan of Treatment Upcoming Encounters Date Type Specialty Care Team Description 01/19/2022 Office Visit Hematology and Oncology Loan Burton, NOLAN [facility] HEMATOLOGY/[place] [address] 01/19/2022 Infusion Hematology and Oncology Canc eled (F-ARIA CANCEL) 01/25/2022 Hospital Gastroenterology Jose Clark MD [facility] [place] [address] 01/25/2022 Surgery Gastroenterology Jose Clark UPPE R GI R, MD ENDOSCOPY [facility] [place] [address] 01/26/2022 Office Visit Hematology and Oncology Fabian Cameron MD [facility] DR HEMATOLOGY/[place] [address] Loan Burton APRN [facility] HEMATOLOGY/[place] [address] 01/26/2022 Infusion Hematology and Oncology 02/02/2022 Office Visit Hematology and Oncology Fabian Cameron MD [facility] HEMATOLOGY/[place] [address] 02/02/2022 Infusion Hematology and Oncology 02/22/2022 Telephone Hematology and Oncology Siena Lloyd RD [facility] [address]IVE [place] [address] Scheduled Procedures Name Priority Associated Diagnoses Date/Time EGD, UPPER GI ENDOSCOPY EGD with stent vs 2021 12:00 PM EDT cryotherapy. documented as of this encounter Visit Diagnoses Diagnosis Primary lung adenocarcinoma, right documented in this encounter Care Teams Windows Vmware Engineer Relationship Specialty Start Date End Date Farzaneh Winkler APRN PCP - General General Internal Medicine 06/05/[address] [place] [id number] documented as of this encounter
--- OUTSIDE RECORDS SUMMARY | 2022-01-19 07:37 | XMS_ITS | Encounter Summary ---
:1950 Author Organization [facility] [place] [address] Care Team Providers Name Role Phone PetersonRamónrubio Huff APRN Primary Care Provider Reason for Visit Auth/Cert Specialty Diagnoses / Procedures Referred By Contact Refer red To Contact Diagnoses Lung cancer Lung cancer with right pleural effusion Procedures PRO THORACOSCOPY WITH BIOPSY OF PLEURA PRO BRONCHOSCOPY, DIAGNOSTIC PRO INSERTION INDWELLING TUNNELED PLEURAL CATHETER PRO THORACOSCOPY SURG W/PLEURODESIS THORACOSCOPY; WITH BIOPSY(IES) OF PLEURA (WRVU 4.58) BRONCHOSCOPY, DIAGNOSTIC (WR VU 2.78) INSERTION INDWELLING PLEURAL CATHETER W\CUFF (WRVU 4.17) @THORACOSCOPY, SURG; W PLEURODESIS (WRVU 10.83) Referral ID Status Reason Start Date Expiration Date Visits Requ ested Visits Authorized [id number] 1 1 Encounter Details Date Type Department Care Team Description 09/05/2019 Surgery Main Operating Room Stan Kirby T HORACOSCOPY; WITH Bria Rincon MD BIOPSY(IES) OF PLEURA [facility] (WRVU 4.58) [facility] [address] [place] [address] [place] [address] [phone] (Wo rk) Social History Tobacco Use Types Packs/Day Years Used Date Former Smoker Cigarettes 2 1970 - 2015 Smokeless Tobacco: Former User Chew [...] Reading Time Taken Comments Blood Pressure 128/68 09/05/2019 8:35 AM EDT Pulse 89 09/05/2019 8:35 AM EDT Temperature 37 ??C (98.6 ??F) 09/05/2019 8:35 AM EDT Respiratory Rate 18 09/05/2019 8:35 AM EDT Oxygen Saturation 99% 09/05/2019 8:35 AM EDT Inhaled Oxygen Concentration - - Weight 138.8 kg (306 lb) 09/05/2019 8:35 AM EDT Height 181.6 cm (5' 11.5) 09/05/2019 8:35 AM EDT Body Mass Index 42.08 09/05/2019 8:35 AM EDT documented in this encounter Discharge Summaries Romina Tinsley PA - 09/05/2019 3:13 PM EDT Department of Thoracic Surgery - Discharge Summary Patient Name: Alin Meek Patient Age: 69 y.o. Birthdate: 1950 Admit date: 09/05/2019 Discharge date: 09/05/2019 Attending Physician: Stan Kirby MD Discharge Diagnoses (Hospital Problems) and Secondary Diagnoses (Chronic Problems): Active Hospital Problems Diagnosis ??? Lung cancer Resolved Hospital Problems No resolved problems to display. Active Non-Hospital Problems Diagnosis ??? Pain in joint ??? Low back pain ??? Benign essential hypertension No comments entered for problem. ??? Chronic obstructive lung disease No comments entered for problem. ??? Morbid obesity No comments entered for problem. ??? Primary malignant neoplasm of lung No comments entered for problem. ??? Hypothyroidism due to drugs ??? Primary lung adenocarcinoma, right Operations/Major Procedures: Operations: Case Date: 09/05/2019 Surgeon: Surgeon(s) and Role: * Stan Kirby MD - Primary * Lula Nichole PA - Physician Outcomes Specialist Procedure: Procedure(s) with comments: THORACOSCOPY; WITH BIOPSY(IES) OF PLEURA (WRVU 4.58) - Bronch, right VATS, pleural biopsy with pleurx catheter placement. 1.5 hours BRONCHOSCOPY, DIAGNOSTIC (WRVU 2.78) INSERTION INDWELLING PLEURAL CATHETER W\CUFF (WRVU 4.17) NERVE BLOCK, INTERCOSTAL NERVE, MULTIPLE (WRVU 1.68) History of Presentation: Alin Meek is a 69 y.o. male with FDG avid right pleural based nodules and loculated effusion in the setting of known Right lung adenocarcinoma, stage IIIA (s/p definitive chemo/xrt (carbo/docetaxel and adjuvant immunotherapy with durvalumab completed 09/04/18)) who presents to discuss diagnosticand therapeutic options. Her PMHx is additionally significant for HTN, obesity, COPD and DM. ?? He was last seen here in 2017 at the time of his original diagnosis and has since been followed by Hematology Oncology. On surveillance imaging, he was noted to have right pleural based nodularities and right pleural effusion. Today, he notes his dyspnea has worsening to the point where he has trouble taking a shower. He does have CHENG at baseline and is overall sedentary. He state he can walk some but has difficulty 2/2 chronic back pain as well. He denies cough, hemoptysis, wheeze, chest pain, fever, chills, weight loss. ?? He is a former smoker at 1.5-2 PPD x 48 years but quit 3.5 years ago. He stopped drinking ~3.5 yearsago as well. He denies illicit drug use. (From Dr. Jose's office note on 08/26/2019) Hospital Course: Alin Meek was admitted to [facility] on 09/05/2019 via the Same Day Program. He was brought to the operating room on 09/05/[address] Stan Kirby performed surgery as described above. He tolerated the procedure well and was brought to the Post Anesthesia Care Unit for recovery. After a brief period of time he was transferred to the floor for continued rehabilitation. The right PleurX chest tube was initially connected to an atrium. Post-op CXRwas stable and the Pleurx was capped. He received appropriate PleruX teaching and VNA was arranged. By postoperative day #0, he had met all criteria for discharge to home. Pain was controlled on oral medications. He was tolerating a regular diet and was passing flatus. Vital signs: Vital Signs Temp: 36.3 ??C (97.3 ??F) Temp src: Temporal Heart Rate from SpO2: 68 bpm Heart Rate: 71 Heart Rate Source: Monitor Resp: 12 BP: 127/66 MAP (NBP): 83 mmHg BP Method: Automatic SpO2: 95 % O2 Flow Rate (L/min): 2 L/min O2 Device: None (Room air) Admission Wt: 138.8 kg Last Wt: Wt Readings from Last 3 Encounters: 09/05/19 (!) 138.8 kg (306 lb) 08/26/19 (!) 138.3 kg (304 lb 12.8 oz) 07/24/19 (!) 137.9 kg (304 lb) Pertinent physical exam findings prior to discharge: Gen: NAD, pleasant, sitting on stretcher HEENT: normocephalic, atraumatic Neck: supple, trachea midline Card: RRR, no M/R/G appreciated Pulm: CTAB, no wheeze/ronchi/rales appreciated, non-labored breathing on room air, PleurX dressing CDI Abd: soft, NT, BS+ Ext: warm, dry, no edema Neuro: A&Ox3, nonfocal, conversant Important Lab Data: Lab Results Component Value Date WBC 10.9 (H) 08/26/2019 HGB 12.7 (L) 08/26/2019 HCT 42.2 08/26/2019 MCV 82.9 08/26/2019 Lab Results Component Value Date NA 132 (L) 08/26/2019 K 4.4 08/26/2019 CL 97 (L) 08/26/2019 CO2 24 08/26/2019 Lab Results Component Value Date CREATININE 1.00 08/26/2019 Lab Results Component Value Date BUN 21 (H) 08/26/2019 No results found for: PREALBUMIN No results for input(s): PT, PTT, INR in the last 168 hours. Studies: CXR 09/05/2019 Post-Op New right-sided pneumothorax, similar in extent to the previously present and now drained pleural fluid. Right-sided volume loss and mediastinal shift to the right is seen again. Left lung remains clear. Pending Studies and Lab Data: No current labs Discharge Conditions/Prognosis: Stable Discharge to: Home Discharge Medications: Your Medications Continued medications, unchanged Dose Details ALBUTEROL INHL Inhale into the lungs every 4 hours as needed. Refills: 0 amLODIPine 10 mg Tab Commonly known as: Norvasc Take 10 mg by mouth daily. 10 mg Refills: 0 b complex vitamins Cap Take 1 capsule by mouth daily. 1 capsule Refills: 0 BREO ELLIPTA INHL Inhale 1 Dose into the lungs daily. 1 Dose Refills: 0 chlorthalidone 25 mg Tab Commonly known as: Hygroten Take 25 mg by mouth daily. 25 mg Refills: 0 cholecalciferol (Vitamin D3) 50 mcg (2,000 unit) Tab Take 2,000 Units by mouth daily. 2,000 Units Refills: 0 folic acid 1 mg Tab Commonly known as: Folvite Take 1 mg by mouth daily. 1 mg Refills: 0 Imodium A-D 2 mg Cap Take 2 mg by mouth 4 times daily as needed for Diarrhea. Generic drug: loperamide 2 mg Refills: 0 losartan 25 mg Tab Commonly known as: Cozaar Take 25 mg by mouth daily. 25 mg Refills: 0 triamcinolone 0.1 % Crea Commonly known as: KENALOG Apply topically 2 times daily as needed. Refills: 0 UNKNOWN TO PATIENT Take 1 tablet by mouth daily. Indications: anxiety pill [facility] ordered. Don't know what it is. 1 tablet Refills: 0 Updated Allergies/ADRs: Allergies Allergen Reactions ??? Lisinopril Angioedema Lips got swollen Instructions Given to Patient at Discharge: Patient Instructions Call if you have a fever of greater than 101 degrees, shaking chills, develop redness or drainage from your incision site(s), or if you have questions. During normal business hours, Sunday- Sunday 8:00a.m.-5:00 p.m., please call to speak to a nurse in the Thoracic Clinic at [phone]. After hours or on weekends or holidays please call: [phone] and ask to speak to the Thoracic Surgeon general surgeon. Exercise & Activity Level: As you recover from surgery exercise at least 30 minutes a day. This can be broken up into several times a day to achieve this goal at first, but you will be able to workup to doing all 30 minutes at once. Walking, treadmill, stationary bike, elliptical machine or therestationary exercise equipment is appropriate. Take your incentive spirometer home with you. You should use this every hour while awake, 10 times each. This helps you to exercise your respiratory muscles and to breathe deeply. Taking purposeful deep breaths can be just as effective. Do not lift more than 10 pounds for 2 weeks (nothing heavier than a gallon of milk). Don???t exhaustyourself. Rest between activities as you recover from your procedure. Diet: You should follow a regular diet. Driving: No driving for 1 week or while taking narcotic pain medication. Shower/Bath: You may shower daily, no bathing or swimming until your follow-up appointment. When youshower you should have an adhesive dressing covering the drain site on your skin. Incision care: Wash your incision(s) daily with soap and rinse well, pat dry. Assess for any signs of infection such as increased redness, pain, warmth or drainage. If you have steri-strips over an incision site, these will remain in place for 7-10 days. You may shower with them, and they will fall off naturally in 7-10 days. If they do not fall off by 10 days, you may remove them. Pain: Pain after surgery is normal. The goal is for you to be able to tolerate pain so you can complete your daily activities. You may notice a burning or numbness on the side of your incision that mayinclude your breast area. This should improve over time but there may be areas that remain numb. Youmay use a heating pad set on low or medium, over your incision to help relax the muscles in the areaand decrease discomfort. Please take your medication as prescribed. If you are not having good pain control, please call and speak to the nurse in the Thoracic Clinic or the Thoracic Surgeon general surgeon after hours. Please take over the counter Tylenol and Ibuprofen in an alternating fashion, as instructed, for baseline pain coverage. Sleep: Try to establish normal sleep patterns. Long naps during the day may make it hard for you to sleep at night. Use the pain medication at bedtime for the first week at home if needed. Bowel Movements: After surgery, your bowel movements may not be regular for you, but you should be able to get back to your daily routine quickly. Please make sure to take the stool softeners or mild laxatives as prescribed to get back to your normal routine. If you do not have a bowel movement for more than 2 days, please call the office. Follow up appointments: We will call you at home to ask about the output amount and character from the catheter. Please call if there are any issues or questions. You should arrange to see your primarycare physician, in two weeks. No future appointments. General Instructions None No flowsheet data found. Ailn Meek is being prescribed a prescription opioid for the treatment of acute post-operativepain related to surgery. Alin Meek has been advised to take the smallest dose possible to control their pain and as their pain improves to take smaller doses and increase the time between doses. In addition to this medication, non-opioid medications have been prescribed for adjunct treatment oftheir pain. Non-pharmacological treatment such as ice, elevation and activity modification have beenrecommended as appropriate. The Acute Opioid Therapy Informed Consent form has been completed and sent to medical records for scanning to chart. Future Appointments and Orders Future Orders Complete By Expires Referral to Home Health - at DISCHARGE [[id number] CPT(R)] As directed Process Instructions: Scheduling Instructions: Comments: DOCUMENTATION FOR VNA SERVICES (INCLUDING THOSE PATIENTS WITH MEDICARE COVERAGE REQUIRING HOME VNA SERVICES AND/OR HOSPICE SERVICES) PATIENT'S LOCATION: Alin Meek [address] [place] [address] (home) Cell: No relevant phone numbers on file. High Risk Case Manager's Name:self/patient In discussion with the attending physician, it is certified that this patient is under their care and that they, or a Nurse Practitioner,Clinical Nurse specialist or Physician Outcomes Specialist who is working directly with them, had a face to face encounter that meets the physician face to face encounter requirements with this patient on 09/05/2019 The encounter with the patient was in whole, or in part, for the following medical condition, which is the primary reason for home health care services: Lung Cancer: plueRx Tube placed 09/04/18 In discussion with the provider, it is certified that, based on their findings, the following services are medically necessary for home health services. To provide the following care/treatments with the clinical findings supporting the need for servicesas follows: HOME CARE ORDERS: RN ORDERS:Assess wound or incision, vital signs, cardiopulmonary status, nutrition, hydration, elimination, meds effectiveness and management; reinforce education re health issues SPECIFIC RN ORDERS if needed: n/a PleurX Drainage System Placement Site: Thoracic Vacuum Bottle Size: 500ml Number of Bottles available at discharge: 10 Frequency of Draining: Twice daily and PRN It takes approximately 5 to 15 minutes to drain fluid. IMPORTANT: Do NOT drain more than 1000mL from your chest or 2000mL from your abdomen at any one time. Please contact Dr. Kirby at for any questions or concerns HOME HEALTH CARE AGENCY: [facility] [address], [place] [address] Start of care: 09/06/2019 FOR MEDICARE ONLY: (please delete this section if not Medicare) In discussion with the attending physician, it is certified that the clinical findings support that this patient is homebound because absences from home require considerable and taxing effort due to: requires assistance of another to navigate community surfaces Please note that any additional orders needs or changes will need to be obtained from this patient'sPCP: Farzaneh Winkler APRN [address] [facility] [id number] All VNA agencies which cover the area of patient's residence have been reviewed, either verbally or in writing, and patient/family have chosen the home health care agency noted Questions: [facility] location post discharge: home What services are requested: Registered Nurse Start date: Responsible MD post discharge contact info: Provider Contact Information: Primary Care Provider: Farzaneh Winkler APRN [phone] Discharge References/Attachments: Discharge References/Attachments None For questions regarding this document or issues relating to this hospitalization on the Thoracic Surgery Service, please contact Dr. Kirby's office at . Signed: TIARA Clarke 09/05/2019 Thoracic Surgery [facility] CC: PCP: Farzaneh Winkler APRN Referring: Shayna Sepulveda Md [facility] [address] [place] [address] documented in this encounter Discharge Instructions Discharge InstructionsIsabel Diaz RN - 09/05/2019 3:49 PM EDT Next tylenol may be taken at 3:00pm today if needed. POST ANESTHESIA INSTRUCTIONS Go home, rest, use caution on stairs. Change positions slowly. Do not smoke if you are alone. Diet light to regular as tolerated today. If nausea occurs start with clear liquids and progress slowly. No driving, operating machinery, alcoholic beverages and no important decisions for 24 hours. Monitor IV site for signs and symptoms of infection: increasing redness, swelling, foul drainage, ifoccurs contact M.D. Patients who have had endotrachial tubes (this tube, used by anesthesia department, is passed down your throat after you are asleep, to ensure safe air passage during your operation). A sore throat is normal due to the tube. Cold liquids or soothing lozenges will help ease the discomfort. The generalized muscle aches are due to the medication given to you just before the tube is inserted. As the medication wears off, you may develop muscle soreness, which usually goes away in 12-24 hours. Patient InstructionsCottTamir suresh MD - 09/05/2019 3:11 PM EDT Call if you have a fever of greater than 101 degrees, shaking chills, develop redness or drainage from your incision site(s), or if you have questions. During normal business hours, Sunday- Sunday 8:00a.m.-5:00 p.m., please call to speak to a nurse in the Thoracic Clinic at [phone]. After hours or on weekends or holidays please call: [phone] and ask to speak to the Thoracic Surgeon general surgeon. Exercise & Activity Level: As you recover from surgery exercise at least 30 minutes a day. This can be broken up into several times a day to achieve this goal at first, but you will be able to workup to doing all 30 minutes at once. Walking, treadmill, stationary bike, elliptical machine or therestationary exercise equipment is appropriate. Take your incentive spirometer home with you. You should use this every hour while awake, 10 times each. This helps you to exercise your respiratory muscles and to breathe deeply. Taking purposeful deep breaths can be just as effective. Do not lift more than 10 pounds for 2 weeks (nothing heavier than a gallon of milk). Don???t exhaustyourself. Rest between activities as you recover from your procedure. Diet: You should follow a regular diet. Driving: No driving for 1 week or while taking narcotic pain medication. Shower/Bath: You may shower daily, no bathing or swimming until your follow-up appointment. When youshower you should have an adhesive dressing covering the drain site on your skin. Incision care: Wash your incision(s) daily with soap and rinse well, pat dry. Assess for any signs of infection such as increased redness, pain, warmth or drainage. If you have steri-strips over an incision site, these will remain in place for 7-10 days. You may shower with them, and they will fall off naturally in 7-10 days. If they do not fall off by 10 days, you may remove them. Pain: Pain after surgery is normal. The goal is for you to be able to tolerate pain so you can complete your daily activities. You may notice a burning or numbness on the side of your incision that mayinclude your breast area. This should improve over time but there may be areas that remain numb. Youmay use a heating pad set on low or medium, over your incision to help relax the muscles in the areaand decrease discomfort. Please take your medication as prescribed. If you are not having good pain control, please call and speak to the nurse in the Thoracic Clinic or the Thoracic Surgeon general surgeon after hours. Please take over the counter Tylenol and Ibuprofen in an alternating fashion, as instructed, for baseline pain coverage. Sleep: Try to establish normal sleep patterns. Long naps during the day may make it hard for you to sleep at night. Use the pain medication at bedtime for the first week at home if needed. Bowel Movements: After surgery, your bowel movements may not be regular for you, but you should be able to get back to your daily routine quickly. Please make sure to take the stool softeners or mild laxatives as prescribed to get back to your normal routine. If you do not have a bowel movement for more than 2 days, please call the office. Follow up appointments: We will call you at home to ask about the output amount and character from the catheter. Please call if there are any issues or questions. You should arrange to see your primarycare physician, in two weeks. No future appointments. documented in this encounter Medications at Time of Discharge Medication Sig Dispensed Refills Start Date End Date budesonide-formoteroL Inhale 2 puffs twice 0 07/19 [...] capsule by 0 12/29/2021 Capsule mouth daily. amLODIPine (NORVASC) 10 Take 10 mg by mouth 0 10/21/2019 mg Tablet daily. documented as of this encounter Progress Notes Isabel Diaz RN - 09/05/2019 4:27 PM EDT Patient and watched pleurex video prior to inpatient RN Renetta coming by to review with patient & how to use pleurex and change dressing. Discharge instructions reviewed with patient and and are aware that VNA has been set up by SANDY Blount. 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 A letter describing our affiliations was reviewed with them and theywere educated about their right to choose where referrals are placed. Patient requests referral to [facility]. PHONE: [phone] FAX: [phone] RN PlueRx chest tube management and education Expected date of discharge: TODAY from [facility] had pre-op teaching, reviewing DVD and care of PlueRx with SDP RN Isabel kumar. RN to call report to . [facility] will fax PlueRX form if needed to [facility]. Fax number noted above. Referral routed to the Lead Section Supervisor for matching with agency/vendor and to provide any required information. Past Medical History: Diagnosis Date ??? Adenocarcinoma, lung, right ??? COPD (chronic obstructive pulmonary disease) ??? DJD (degenerative joint disease) ??? HTN (hypertension), benign ??? PAC (premature atrial contraction) Patient Active Problem List Diagnosis Code ??? 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 Benign essential hypertension I10 ??? Chronic obstructive lung disease J44.9 ??? Morbid obesity E66.01 ??? Primary malignant neoplasm of lung C34.90 ??? Pain in joint M25.50 ??? Low back pain M54.5 ??? Lung cancer C34.90 Social History Social History Narrative ??? Not on file Extended Emergency Contact Information Primary Emergency Contact: Stephanie Meek Address: [address] [place] [address] [facility] Relation: Spouse ?? Code status: Full Code [facility][id number] - [place], [place] - [address] [place] [address] AT SEC OF [facility] & [address] [address] Plan: Care Management will continue to monitor progress, follow for continuity of care, and assist with discharge planning. ?? PCP: Farzaneh Winkler, COMPANY DRIVER, No future appointments. Dayna Buck RN - 09/05/2019 2:50 PM EDT Office of Care Management/Initial Assessment CDU/SDP/Emergency Department Automobile Tester RN Mine Buck RN, BSN, ACM Pager # [phone] Patient: Alin Meek : 1950 (69 y.o.) Home: [facility] [address] LOS: 1 day Problem List Items Addressed This Visit Primary lung adenocarcinoma, right Relevant Orders BRONCHOSCOPY,DIAGNOSTIC (Completed) INSERTION INDWELLING PLEURAL CATHETER W\CUFF (Completed) Referral to Home Health - at DISCHARGE NERVE BLOCK, INTERCOSTAL NERVE, MULTIPLE (Completed) [facility]. PHONE: [phone] FAX: [phone] Follow up completed. Past Medical History: Diagnosis Date ??? Adenocarcinoma, lung, right ??? COPD (chronic obstructive pulmonary disease) ??? DJD (degenerative joint disease) ??? HTN (hypertension), benign ??? PAC (premature atrial contraction) Patient Active Problem List Diagnosis Code ??? 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 Benign essential hypertension I10 ??? Chronic obstructive lung disease J44.9 ??? Morbid obesity E66.01 ??? Primary malignant neoplasm of lung C34.90 ??? Pain in joint M25.50 ??? Low back pain M54.5 ??? Lung cancer C34.90 Social History Social History Narrative ??? Not on file Extended Emergency Contact Information Primary Emergency Contact: Stephanie Meek Address: [address] [place] [address] [facility] Relation: Spouse [id number] - [place], [place] - [address] [place] [address] AT SEC OF [facility] & [address] [address] Plan: Care Management will continue to monitor progress, follow for continuity of care, and assist with discharge planning. ?? PCP: Farzaneh Winkler, NOLAN, No future appointments. Edyta Mcgregor RN - 09/05/2019 12:56 PM EDT 1203) Patient into PACU from OR. Attached to monitors, alarms on and appropriate for patient. Patient awakening a little disoriented. Giselle RN 1215) Orientation returned to normal. Giselle RN 1245) CXray obtained. Giselle RN 1255) Thoracic service paged to read xray and perhaps change pigtail reservoir so patient can go back to [facility]. Giselle RN 1405) Thoracic oks cxray and comes bedside to cap pleurex tube. Oks dc to home. Giselle RN 1420) Handoff given to [facility] and patient transported to [facility]. Uneventful recovery. Giselle RN Loan Greer RN - 09/05/2019 12:51 PM EDT This author reviewed a list of Home Health Agencies/DME vendors which serve their preferred geographic area. Affiliations were reviewed with them and they were educated about their right to choose where referrals are placed. Patient requests referral to [facility] [address] [place] [address] Expected date of discharge: 09/05/2019 Tabby Fry RN - 09/05/2019 8:43 AM EDT Images from the original note were not included. Patient Name: Alin Meek Patient Age: 69 y.o. Birthdate: 1950 Admit date: 09/05/2019 Attending Physician: Stan Kirby MD Skin: documented in this encounter H&P Notes Lula Nichole PA - 09/05/2019 9:04 AM EDT Patient Name: Alin Meek Patient Age: 69 y.o. Birthdate: 1950 Admit date: 09/05/2019 Attending Physician: Stan Kirby MD Thoracic Surgery Preop NAME: Alin Meek DATE: 09/05/19 SURGEON: STAN KIRBY PROCEDURE: Bronchoscopy, R VATS pleural biopsy, possible pleurodesis versus pleurx catheter placement BRIEF HISTORY: Alin Meek is a 69 y.o. male with FDG avid right pleural based nodules and plerual effusion in the setting of known right adenocarcinoma, stage IIIA concerning for recurrent disease. The patient reports no interval change. There has been no interval medical illness or hospitalizations. Questions have been addressed. Smoking HX: Social History Tobacco Use Smoking Status Former Smoker ??? Packs/day: 2.00 ??? Types: Cigarettes ??? Start date: 1969 ??? Last attempt to quit: 2015 ??? Years since quittin.2 Smokeless Tobacco Former User ??? Types: Chew ??? Quit date: 1974 Tobacco Comment 2016 quit PMH: Patient Active Problem List Diagnosis Date Noted ??? Lung cancer 08/26/2019 ??? Pain in joint 05/23/2018 ??? Low back pain 05/23/2018 ??? Benign essential hypertension 04/11/2018 ??? Chronic obstructive lung disease 04/11/2018 ??? Morbid obesity 04/11/2018 ??? Primary malignant neoplasm of lung 04/11/2018 ??? 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 Primary lung adenocarcinoma, right 07/02/2017 PSH: Past Surgical History: Procedure Laterality Date ??? LUMBAR DISC SURGERY ??? SUBTOTAL COLECTOMY 05/23/2016 ??? TOTAL KNEE ARTHROPLASTY Right ??? UMBILICAL HERNIA REPAIR MEDS: No current facility-administered medications on file prior to encounter. Current Outpatient Medications on File Prior to Encounter Medication Sig Dispense Refill ??? fluticasone/vilanterol (BREO ELLIPTA INHL) Inhale 1 Dose into the lungs daily. ??? chlorthalidone (HYGROTEN) 25 mg Tablet Take 25 mg by mouth daily. ??? amLODIPine (NORVASC) 10 mg Tablet Take 10 mg by mouth daily. ??? ALBUTEROL INHL Inhale into the lungs every 4 hours as needed. ??? folic acid (Folvite) 1 mg Tablet Take 1 mg by mouth daily. ??? UNKNOWN TO PATIENT Take 1 [...] Take 25 mg by mouth daily. ??? triamcinolone (KENALOG) 0.1 % Cream Apply topically 2 times daily as needed. ALL: Allergies Allergen Reactions ??? Lisinopril Angioedema Lips got swollen Physical Exam Most Recent Vitals: 09/05/19 0835 BP: 128/68 Pulse: 89 Resp: 18 Temp: 37 ??C (98.6 ??F) SpO2: 99% Gen: NAD, pleasant, sitting up in bed HEENT: normocephalic, atraumatic Neck: supple, trachea midline Card: RRR, no M/R/G appreciated Pulm: Absent breath sounds right base to mid lung field, clear at right apex, left CTA, no wheeze/ronchi/rales appreciated, non-labored breathing on RA Abd: Obese, soft, NT, BS+ Ext: warm, dry, no edema Neuro: A&Ox3, CN II-XII grossly intact, nonfocal, conversant LABS: Lab Results Component Value Date WBC 10.9 (H) 08/26/2019 RBC 5.09 08/26/2019 HGB 12.7 (L) 08/26/2019 HCT 42.2 08/26/2019 MCV 82.9 08/26/2019 MCH 25.0 (L) 08/26/2019 MCHC 30.1 (L) 08/26/2019 PLATELET 310 08/26/2019 RDWCV 16.9 (H) 08/26/2019 Lab Results Component Value Date/Time NA 132 (L) 08/26/2019 11:04 AM K 4.4 08/26/2019 11:04 AM CL 97 (L) 08/26/2019 11:04 AM CO2 24 08/26/2019 11:04 AM BUN 21 (H) 08/26/2019 11:04 AM CREATININE 1.00 08/26/2019 11:04 AM PET (07/22/2019): 1. ??Multiple mildly FDG avid pleural-based RIGHT lung nodules, concerning for recurrent disease. 2. ??Consolidated/fibrotic lung adjacent to the RIGHT hilum is favored to represent postradiation change. 3. ??Persistent partially loculated moderate RIGHT pleural effusion. EKG: (08/26/2019): Normal sinus rhythm Normal ECG No previous ECGs available MED/CARD CLEARANCE/MIBI/VQ SCAN FILM ON PACS: Yes CONSENT: Yes/EMR - Yes Assessment/Plan: Alin Meek is a 69 y.o. male presenting today for planned bronchoscopy, R VATS pleural biopsy, possible pleurodesis versus pleurx catheter placement due to FDG avid right pleuralbased nodules and plerual effusion in the setting of known right adenocarcinoma, stage IIIA concerning for recurrent disease. Consent signed and confirmed in chart. Questions addressed. Will proceed with planned surgery. TIARA Cat 09/05/2019 Thoracic Surgery Service Pager [phone] Associated attestation - Stan Kirby MD - 09/05/2019 10:10 AM EDT I have seen the patient and reviewed the PA resident's above note and I agree with the details as written. The assessment and plan were formulated in discussion with me and I agree with them as documented. Questions answered. Plan reviewed. To OR for planned procedure. Stan Kirby MD 09/05/2019 documented in this encounter Miscellaneous Notes Care Management - Felicia Shah, RN - 09/05/2019 4:33 PM EDT Received call from Liz Wolfe MD who said that tried to reach out to A to make sure thatthey were coming today. She told MD that they were not aware of the referral. RS contacted [facility]. PHONE: [phone] FAX: [phone] And said that they did not receive the d/c summary. RS took care of this and the Home Health serviceis ready to see patient today. MD to call for follow-up and to confirm start of service. Covering pager #[phone] for today. Op Note - Stan Kirby MD - 09/05/2019 1:10 PM EDT [facility] Operative Note Patient Name: Alin Meek : [id number] MR#: [id number] Case Date: 09/05/2019 Surgeon: Surgeon(s) and Role: * Stan Kirby MD - Primary * Lula Nichole PA - Physician Outcomes Specialist Preoperative diagnosis: Lung cancer with right pleural effusion Postoperative diagnosis: Lung cancer with right pleural effusion Procedure(s) (LRB): THORACOSCOPY; WITH BIOPSY(IES) OF PLEURA (WRVU 4.58) (Right) BRONCHOSCOPY, DIAGNOSTIC (WRVU 2.78) (N/A) INSERTION INDWELLING PLEURAL CATHETER W\CUFF (WRVU 4.17) (Right) NERVE BLOCK, INTERCOSTAL NERVE, MULTIPLE (WRVU 1.68) (Right) Findings: Extrinsic compression of the right lower and middle lobes on bronchoscopy. Approximately 1300cc of serous right pleural effusion. Trapped lung in the middle and lower lobes. Inflammatory versus malignant plaques on the chest wall and lung. Biopsies of the parietal pleura were performed and fluid sent for cytology. A pleurX catheter was placed given the trapped lung. Anesthesia: General Estimated Blood Loss: 5cc Specimens removed during surgery: Order Name Source Comment Collection Info Order Time CYTOPATHOLOGY NON-GYNECOLOGICAL OR 09/05/2019 11:24 AM Pertinent clinical data and significant therapy: Lung cancer with right pleural effusion Clinical impression: RIGHT pleural fluid Procedure Type: Other (please specify in Comments Field below) Specimen Type: Pleural fluid (thoracentesis) SPECIMEN TO PATHOLOGY OR Lung cancer with right pleural effusion RIGHT posterior pleura biopsy 09/05/2019 11:29 AM Time specimen removed from patient: 11:29 AM Number of tissue samples (in container) 1 SPECIMEN TO PATHOLOGY OR Lung cancer with right pleural effusion Inferior RIGHT pleural biopsy biopsy 09/05/2019 11:32 AM Time specimen removed from patient: 11:32 AM Number of tissue samples (in container) 1 Drains: PleurX catheter placement Surgical Closure: Primary Closure - skin incision is completely closed without any wires, elvi, drains or other devices Disposition: awakened from anesthesia, extubated and taken to the recovery room in a stable condition, having suffered no apparent untoward event. Condition: stable (Please see the Surgical Encounter Summary for any Implant and Specimen details pertinent to this patient.) HPI/Surgical Indications: 69y/o male with prior stage III lung cancer presents with right pleural effusion symptomatic of severe dyspnea. Procedure Description: The patient was identified in the preoperative holding area. He was brought to the operating room. A second verification process including the patient's name, medical record number, date of and planned procedure was performed. He is placed supine on the operating room table. He was then sat in the semi-mccormick position in order to improve his breathing. Sequential pressuredevices and subcutaneous heparin were administered. He received appropriate prophylactic IV antibiotics prior to the incision. General anesthesia was induced by the anesthesiology staff with a double-lumen endotracheal tube. This was confirmed to be in the appropriate position bronchoscopically. A timeout was performed. Flexible diagnostic bronchoscope was inserted down the tracheal lumen. This demonstrated no evidence of any endobronchial abnormality in the mid or distal trachea. The micah was sharp. Scope was advanced into the right mainstem bronchus and then sequentially into the right upper, middle, and lower lobes. There was evidence of prior radiation in the right lobar bronchi. There appeared to be evidence of extrinsic compression of the subsegmental bronchi in the right middle and lowerlobes. There is no additional endobronchial abnormality noted. The scope was removed. The scope was advanced down the bronchial lumen. There is no evidence of any endobronchial abnormality in the mid or distal left mainstem bronchus. There is a large amount of mucus that was present in the left lower lobe orifice. This was suctioned out. There is no additional endobronchial abnormality noted to the level of the subsegmental bronchi in the left upper or lower lobes. The scope was removed. The patientwas rotated into the left lateral decubitus position. He is appropriately padded in all areas. He was prepped and draped in usual sterile fashion, including an Ioban drape. 5 mm incision was made below the tip of the scapula. Blunt dissection was used to enter the right pleural space. This occurred following isolation of the right lung. A 5 mm thoracoscopic port was inserted. The thoracoscope was inserted. This demonstrated entry into the pleural space with significant effusion that was present. The thoracoscope was removed. The suction catheter was inserted through theport and the majority of the pleural effusion was evacuated. A portion of this was sent for cytology. In total approximately 1.3 L of serous fluid were removed. The thoracoscope was then inserted. An additional port was then placed in the seventh intercostal space in the anterior axillary line. Inspection of the pleural space demonstrated significant amount of scar tissue on the middle and lower lobes of the right lung. It was difficult to determine if this was inflammatory in nature or malignant. There were a variety of plaques that were present throughout the pleural space. There did not appear to be any obvious nodularity that would be only consistent with metastatic disease. Biopsies of the parietal pleura were taken and sent for permanent histology. We attempted to inflate the right lung under direct vision. However, there was significant trapping of the middle and lower lobes. Consequently, it was felt that a talk pleurodesis would not be beneficial. The decision was made to proceed with a Pleurx catheter placement. A site in the right upper quadrant below the costal margin was chosen. The tract was anesthetized with 0.5% Marcaine and Exparel. A multilevel intercostal nerve block with Exparel was also performed. The skin incision was made in the right upper quadrant and tunneled to the more anterior port site. Pleurx catheter was tunneled through this area and then placed into the right pleural space under direct vision. We made sure to ensure that the last hole in the catheter was well inside the chest. The cuff of the catheter was brought to rest directly beneath the skin incision. The catheter was secured to the skin with an 0 silk suture. We then attempted to reinflate the right lung under direct vision. P ortions of the right lung expanded well. The thoracoscope was removed. There is no bleeding from theport sites. The remaining incisions were closed in layers with 2-0 Vicryl suture in the deep dermal tissue and 4-0 Monocryl in the skin. Sterile dressings of Dermabond were applied to the incisions. A sterile dressing was applied to the Pleurx catheter exit site. The Pleurx catheter was placed to an atrium. The patient tolerated the procedure well. There were no apparent complications. All sponge instrument counts were correct at the end of the case. He was awoken from general anesthesia and extubated in the operating room. He was taken to the recovery room. I was present and scrubbed for the entire procedure. I was assisted in this procedure by Lula Nichole PA-C as no qualified resident was available to assist me. Infection Bundle used? No Stan Kirby MD 09/05/2019 documented in this encounter Plan of Treatment Upcoming Encounters Date Type Specialty Care Team Description 01/19/2022 Office Visit Hematology and Oncology Loan Burton, NOLAN [facility] HEMATOLOGY/[place] [address] 01/19/2022 Infusion Hematology and Oncology Canc eled (F-ARIA CANCEL) 01/25/2022 Hospital Gastroenterology Jose Clark MD [facility] [place] [address] 01/25/2022 Surgery Gastroenterology Jose Clark EGD, LOLA Yates MD ENDOSCOPY [facility] DR [place] [address] 01/26/2022 Office Visit Hematology and Oncology Fabian Cameron MD [facility] DR HEMATOLOGY/[place] [address] Loan Burton, [employer] DRIVER [facility] DR HEMATOLOGY/[place] [address] 01/26/2022 Infusion Hematology and Oncology 02/02/2022 Office Visit Hematology and Oncology Fabian Cameron MD [facility] DR HEMATOLOGY/[place] [address] 02/02/2022 Infusion Hematology and Oncology 02/22/2022 Telephone Hematology and Oncology Siena Lloyd, RD [facility] DRIVE H[place]ATOLOGY [place] [address] Scheduled Procedures Name Priority Associated Diagnoses Date/Time EGD, UPPER GI ENDOSCOPY EGD with stent vs 2021 12:00 PM EDT cryotherapy. documented as of this encounter Procedures Procedure Name Priority Date/Time Associated Comments Diagnosis POCT GLUCOSE Routine 09/05/2019 3:21 PM Results f or this EDT procedure are i n the results section. NERVE BLOCK, Routine 09/05/2019 1:22 PM Primary lung INTERCOSTAL NERVE, EDT adenocarcinoma, MULTIPLE right XR CHEST ONE VIEW Routine 09/05/2019 12:52 Result s for this PM EDT procedure are i n the results section. SPECIMEN TO PATHOLOGY Routine 09/05/2019 11:33 Re sults for this AM EDT procedure are i n the results section. SURGICAL PATHOLOGY Routine 09/05/2019 11:29 Resul ts for this REPORT AM EDT procedure are i n the results section. SPECIMEN TO PATHOLOGY Routine 09/05/2019 11:29 Re sults for this AM EDT procedure are i n the results section. NON-LAP GRINDER FINAL REPORT Routine 09/05/2019 11:24 Res ults for this AM EDT procedure are i n the results section. CYTOPATHOLOGY Routine 09/05/2019 11:24 Results fo r this NON-GYNECOLOGICAL AM EDT procedure are in the results section. NERVE BLOCK, 09/05/2019 10:32 Primary lung INTERCOSTAL NERVE, AM EDT adenocarcinoma, MULTIPLE (WRVU 1.68) right INSERTION INDWELLING 09/05/2019 10:32 Primary lung PLEURAL CATHETER AM EDT adenocarcinoma, W\CUFF (WRVU 4.17) right BRONCHOSCOPY, 09/05/2019 10:32 Primary lung DIAGNOSTIC (WRVU 2.78) AM EDT adenocarcinoma, right THORACOSCOPY; WITH 09/05/2019 10:32 Primary lung BIOPSY(IES) OF PLEURA AM EDT adenocarcinoma, (WRVU 4.58) right INSERTION INDWELLING Routine 09/05/2019 8:24 AM Primary lung PLEURAL CATHETER EDT adenocarcinoma, W\CUFF right BRONCHOSCOPY,DIAGNOSTI Routine 09/05/2019 8:24 AM Primary lung C EDT adenocarcinoma, right documented in this encounter Results POCT Glucose (09/05/2019 3:21 PM EDT) P athologist Signature POC Glucose 109 65 - 199 [place] mg/dL [facility] Comment: Supplemental ranges: <140 mg/dL before meals <180 mg/dL all other times of the day Specimen Anatomical Collection Method Collection Time Receive d Time (Source) Location / / Volume Laterality Blood specimen 09/05/2019 3:21 PM 020 3:21 (specimen) EDT PM EDT Stan Kirby MD POINT OF CARE TEST ORDERABLE S Performing Organization Address City/State/[place] [address] XR Chest One View (09/05/2019 12:52 PM EDT) Anatomical Region Laterality Modality Chest N/A Digital Radiography Specimen (Source) Anatomical Location Collection Method / Collectio n Time Received Time / Laterality Volume Impressions 09/05/2019 1:31 PM EDT New right-sided pneumothorax, similar in extent to the previously present and now drained pleural fluid. Right-sided volume loss and mediastinal shift to the right is seen again. Left lung remains clear. Thank you for letting us participate in the care of this patient. For questions regarding this report, please contact e number below. ? Narrative 09/05/2019 1:31 PM EDT EXAMINATION: XR CHEST ONE VIEW CLINICAL HISTORY: s/p rvats pleurx nikia ter placement TECHNIQUE: 1 view of the chest COMPARISON: PET/CT 07/22/2019. FINDINGS: Stable right-sided volume loss with medi astinal shift to the right. Interval placement of a right-sided chest tube. T he previously seen right-sided pleural fluid has been drained, and there is now air within the respective right-sided pleural space. No interval osseous change. Procedure Note Keysha Cox MD - 2019 EXAMINATION: XR CHEST ONE VIEW CLINICAL HISTORY: s/p rvats pleurx nikia ter placement TECHNIQUE: 1 view of the chest COMPARISON: PET/CT 07/22/2019. FINDINGS: Stable right-sided volume loss with medi astinal shift to the right. Interval placement of a right-sided chest tube. T he previously seen right-sided pleural fluid has been drained, and there is now air within the respective right-sided pleural space. No interval osseous change. IMPRESSION New right-sided pneumothorax, similar in extent to the previously present and now drained pleural fluid. Right-sided volume loss and mediastinal shift to the right is seen again. Left lung remains clear. Thank you for letting us participate in the care of this patient. For questions regarding this report, please contact e number below. Stan Kirby MD IMG DX ORDERABLES Specimen to Pathology (09/05/2019 11:33 AM EDT) Specimen Anatomical Collection Method Collection Time Receive d Time (Source) Location / / Volume Laterality AP Specimen 09/05/2019 11:33 09/05/2019 AM EDT 11:33 AM EDT Narrative [facility] - 09/05/2019 11:33 AM EDT Specimen requisition ordered. ??Separate Pathology report to follow Stan Kirby MD PATHOLOGY/CYTOLOGY ORDERABLE S Performing Organization Address City/State/[place] [address] Surgical Pathology Report (09/05/2019 11:29 AM EDT) Component Value Ref Test Analysis Performed At [facility] gist Range Method Time Signature Surgical [id number] ? Location: [facility]; [facility]; A [facility] Report The signing pathologist has (i) examined the relevant preparation(s) for the [facility] specimen(s) and (ii) rendered or confirmed the diagnosis(es) . HOSPITAL [facility] . ?Surgic al Pathology DIAGNOSIS A - RIGHT posterior pleura - - Fibrous pleurisy. (see Discussion.) B - Inferior RIGHT pleural biopsy - - Fibrous and focal fibrinous pleurisy - (see Discussion.) Electronically signed by: ??Radha Petty DO Verified: ??09/09/2019 ?Pathologist Performed at: ??-[facility] Dept. of Pathology, [place], [place] DISCUSSION No lung carcinoma is seen in the biopsies (TTF-1 negative). ??The cells present appear to be mesothelial (c alretinin and Cytokeratin positive) or inflammatory (LCA positive). The bland morphology of the mesothelial cells appears consistent with reactive fibrous pleurisy. ??No inva sive pattern is noted. ??Desmoplastic mesothelioma, if suspected, may require mult iple biopsies to prove malignancy as well as clinical correlation. ADDITIONAL STUDIES Immunohistochemistry Studies: Formalin-fixed, paraffin-emb edded tissue sections are studied using the polymer technique with appropriate positive and negative controls. ?These IHC studies provide the pathologist wit h adjunctive diagnostic information. Antibody specificity has been verified by testin g antibodies on a series of in-house tissues with known immunohistochemical perform ance characteristics. The clinical interpretation of any antibody positive stain ing or its absence is evaluated within the context of clinical presentation, morp hology, histopathological criteria and other diagnostic tests. Block ? Antibody ?Result (Positive /Negative) A1 ? TTF-1 ?Negative B1 ? TTF-1 ?Negative ? LCA ?Positive in ly mphocytes ? CKAE1/3 ?Positive in meso thelial cells ? Calretinin ? Positive in mesoth elial cells CLINICAL INFORMATION Specimen Submitted: A - RIGHT posterior pleura B - Inferior RIGHT pleural biopsy Clinical History and Diagnosis: Lung cancer with right pleural effusion SPECIMEN PROCESSING A - Labeled/Fixative: Right posterior pleura, fresh. Quantity/Size: ??Two, 0.5-0.8 cm. Tissue Description: [place]arten-white, rubbery membranous tissue fr agments. Sections/Processing: Submitted en toto ??in 1 cassette labeled A1. B - Labeled/Fixative: Inferior right pleural biopsy, fresh. . SPECIMEN PROCESSING Quantity/Size: ??Single, 2.2 x 1.5 x 0.1 cm. Tissue Description: [place]-white, rubbery membranous tissue fr agment. Sections/Processing: Serially sectioned and entirely submitted in 1 cassette labe led B1. ??jennifer Specimen (Source) Anatomical Collection Method Collection Time Re ceived Time Location / / Volume Laterality 09/05/2019 11:29 AM EDT Stan Kirby MD PATHOLOGY/CYTOLOGY ORDERABLE S Performing Organization Address City/[facility]/ZIP [place] [address] Specimen to Pathology (09/05/2019 11:29 AM EDT) Specimen Anatomical Collection Method Collection Time Receive d Time (Source) Location / / Volume Laterality AP Specimen 09/05/2019 11:29 09/05/2019 AM EDT 11:29 AM EDT Narrative [facility] - 09/05/2019 11:29 AM EDT Specimen requisition ordered. ??Separate Pathology report to follow Stan Kirby MD PATHOLOGY/CYTOLOGY ORDERABLE S Performing Organization Address City/[facility]/[place]IP [place] [address] Non-Project Manager/Team Coach Final Report (09/05/2019 11:24 AM EDT) Component Value Ref Test Analysis Performed At [facility] gist Range Method Time Signature Non-Project Manager/Team Coach [id number] ? Location: [facility]; [facility]; [facility] Final Report [place] The signing pathologist has (i) examined the relevant preparation(s) for the [facility] specimen(s) and (ii) rendered or confirmed the diagnosis(es) . HOSPITAL LABORATORY . ? No n-Project Manager/Team Coach Final DIAGNOSIS Atypical Electronically signed by: ??Luther CISNEROS, Sergio Link Verified: ??09/09/2019 ?Cytopathologist Performed at: ??-[facility] Dept. of Pathology, [place], [place] DISCUSSION Pleural fluid (thoracentesis): A few aty pical epithelioid cells are noted; the possibility of neoplasia is not absolutely excluded. See also the pleural biopsies, [id number]. --- Immunohistochemistry Studies --- Interpretation: ? Immunohistochemical a ssays were performed (on paraffin-embedded cell block sections fixed in 10% neutr al buffered formalin for 6-72 hours) using the polymer technique with appropriate controls. The sections are studied for TTF-1 and calretinin. No specific positive staining seen for TTF-1 or calretinin. These immunohistochemical st udies provide ancillary information and are used only in conjunction with standard diagnostic procedures. CLINICAL INFORMATION Specimen Source : Pleural fluid (thoracentesis) Pertinent Clinical Data and Significant Therapy: Lung cancer with right pleural effusion Clinical Impression : Right pleural fluid Pertinent Radiologic Findings ??: (not provided) Gross Description: Received ??fresh approximately 35 mL total volume of ? ? cloudy, betty fluid. Total Preparation: Liquid-Based Prep 1; Cell Block 1. Specimen (Source) Anatomical Collection Method Collection Time Re ceived Time Location / / Volume Laterality 09/05/2019 11:24 AM EDT Stan Kirby MD PATHOLOGY/CYTOLOGY ORDERABLE S Performing Organization Address City/[facility]/ZIP [place] [address] Cytopathology Non-Gynecological (09/05/2019 11:24 AM EDT) Specimen Anatomical Collection Method Collection Time Receive d Time (Source) Location / / Volume Laterality AP Specimen 09/05/2019 11:24 09/05/2019 AM EDT 11:24 AM EDT Narrative [facility] - 09/05/2019 11:24 AM EDT Specimen requisition ordered. ??Separate Pathology report to follow Stan Kirby MD PATHOLOGY/CYTOLOGY ORDERABLE S Performing Organization Address City/[facility]/ZIP [facility] [place] [address] documented in this encounter Visit Diagnoses Diagnosis Primary lung adenocarcinoma, right Lung cancer Malignant neoplasm of bronchus and lung, unspecified site Primary lung adenocarcinoma, right documented in this encounter Admitting Diagnoses Diagnosis Lung cancer Malignant neoplasm of bronchus and lung, unspecified site documented in this encounter Administered Medications Inactive Administered Medications - up to 3 most recent administrations Medication Order MAR Action Action Date Dose Rate Site BUpivacaine (PF) Given 09/05/2019 11:44 AM 14 mLs 19- Surgical Site (MARCAINE) 0.5 % (5 EDT mg/mL) injection ONCE PRN, Starting on Sun09/05/19 at 1144, Until Sun09/05/19 at 1834, Intra-Operative (Intra-Procedure), Routine BUpivacaine liposome (PF) Given 09/05/2019 11:44 AM 20 mLs 19- Surgical Site (EXPAREL) 1.3 % (13.3 mg/mL) EDT injection for infiltration ONCE PRN, Starting on Sun09/05/19 at 1144, Until Sun09/05/19 at 1834, Intra-Operative (Intra-Procedure) documented in this encounter Active and Recently Administered Medications Times are shown in EDT. Scheduled Medication Order 09/03/2019 09/04/2019 09/05/2019 acetaminophen (Tylenol) tablet 1,000 mg (COMPLETED) 0849 (Given - Provider: Tabby Fry, MADISYN) 1,000 mg, Oral, ONCE, 1 dose, Sun 0 at 0900, Administer with SIP of H2O only., Day of Surgery (Day of Procedure), Routine ceFAZolin (Ancef) 2g in dextrose 5% 100 mL (2 x 1g/50mL premix b ags) IV 1059 (Canceled Entry - Provider: Kenia Chandra MD) 2 g, Intravenous, BUSINESS SUPPORT PROFESSIONAL TO O.R., 1 dos e, Sun09/05/19 at 0930, Administer over 30 Minutes, Total dose of ceFAZolin 2 grams, administered using two ceFAZolin 1g/50mL IV bags. Infuse each ceFAZolin 1g/50 mL bag over 30 minutes (100 ml/hr) for t otal infusion time of 60 minutes. On the MAR, document administration of first bag using New Bag (1 of 2) MAR action for dose of 1g. On the MAR, document admini stration of second bag using Next Bag ( 2 of 2) MAR action for dose of 1g (resulting in total dose of 2g)., Indication for (Active or Suspected): Prophylaxis heparin (Porcine) subcutaneous injection 5,000 Units (COMPLETED) 1017 (Given - Provider: Tabby Fry, MADISYN) 5,000 Units, Subcutaneous, ONCE, 1 dose, Sun09/05/19 at 0930, Please administer prior to induction of anesthesia, Routine Continuous Medication Order 09/03/2019 09/04/2019 09/05/2019 lactated ringers infusion (CANCELED) 0850 (New Bag - Provider: Tabby Fry RN) 1,000 mL, at 100 mL/hr, Intravenous, CON TINUOUS, Starting Sun09/05/19 at 0900, Until Sun09/05/19 at 1432, Day of Surgery (Day of Procedure) PRN Medication Order 09/03/2019 09/04/2019 09/05/2019 BUpivacaine (PF) (MARCAINE) 0.5 % (5 mg/mL) injection (CANCELED) 1144 (Given - Provider: Stan Kirby MD) ONCE PRN, Starting Sun09/05/19 at 1144, Until Sun09/05/19 at 1834, Intra- Operative (Intra-Procedure), Routine BUpivacaine liposome (PF) (EXPAREL) 1.3 % (13.3 mg/mL) injection for infiltration (CANCELED) 1144 (Given - Pr ovider: Stan Kirby MD) ONCE PRN, Starting Sun09/05/19 at 1144, Until Sun09/05/19 at 1834, Intra- Operative (Intra-Procedure), Routine documented in this encounter Care Teams Food Broker Relationship Specialty Start Date End Date Farzaneh Winkler, COMPANY DRIVER PCP - General General Internal Medicine 06/05/[address] [place] [address] documented as of this encounter
--- OUTSIDE RECORDS SUMMARY | 2022-01-19 07:37 | XMS_ITS | Encounter Summary ---
:1950 Author Organization [facility] [place] [address] Care Team Providers Name Role Phone Farzaneh Winkler Daria FRANCISCO Primary Care Provider Encounter Details Date Type Department Care Team Description 09/09/2019 Telephone Thoracic Surgery at [facility] Stan Bernal MD [facility] [place] [address] Thoracic Surgery [phone] [place] [address] (Wo rk) Social History Tobacco Use Types [...] this encounter Miscellaneous Notes Telephone Encounter - Stan Bernal MD - 09/09/2019 4:56 PM EDT I called and spoke with Pierre regarding the results of his biopsy from last week. This showed inflammation of the biopsies of the pleura and no overt signs of malignancy. The pleural fluid also showed no overt cancer cells, but did show some atypical epitheliod cells and a diagnosis of malignancy couldnot definitively be ruled out. We discussed that often when there is a lot of scar tissue in the chest we see atypical cells on pleural fluid cytology and it does not necessarily indicated malignancy. I will forward this information to Dr. Jose and Dr. Cameron for their input. He is draining his PleurX twice daily, and this is going well. Stan Bernal MD 09/09/2019 documented in this encounter Plan of Treatment Upcoming Encounters Date Type Specialty Care Team Description 01/19/2022 Office Visit Hematology and Oncology Loan Burton, NOLAN [facility] HEMATOLOGY/[place] [address] 01/19/2022 Infusion Hematology and Oncology Canc eled (F-ARIA CANCEL) 01/25/2022 Hospital Gastroenterology Jose Clark MD [facility] GASTROENTER[place] [address] 01/25/2022 Surgery Gastroenterology Jose Clark UPPE R GI R, MD ENDOSCOPY [facility] GASTROENTER[place] [address] 01/26/2022 Office Visit Hematology and Oncology Fabian Camreon MD [facility] HEMATOLOGY/[place] [address] Loan Burton APRN [facility] HEMATOLOGY/[place] [address] 01/26/2022 Infusion Hematology and Oncology 02/02/2022 Office Visit Hematology and Oncology Fabian Cameron MD [facility] HEMATOLOGY/[place] [address] 02/02/2022 Infusion Hematology and Oncology 02/22/2022 Telephone Hematology and Oncology Siena Lloyd RD [facility] HEMATOLOGY [place] [address] Scheduled Procedures Name Priority Associated Diagnoses Date/Time EGD, UPPER GI ENDOSCOPY EGD with stent vs 2021 12:00 PM EDT cryotherapy. documented as of this encounter Visit Diagnoses Not on filedocumented in this encounter Care Teams Registered Pharmacist Relationship Specialty Start Date End Date Farzaneh Winkler APRN PCP - General General Internal Medicine 06/05/[address] [place] [id number] documented as of this encounter
--- OUTSIDE RECORDS SUMMARY | 2022-01-19 07:37 | XMS_ITS | Encounter Summary ---
:1950 Author Organization [place] [address] Care Team Providers Name Role Phone Farzaneh Winkler APRN Primary Care Provider Reason for Visit Diagnostic Test (Routine) - Closed Specialty Diagnoses / Procedures Referred By Contact Refer red To Contact Radiology Diagnoses Primary lung adenocarcinoma, right Phuong Faulkner, NOLAN [facility] Rad Nuclear Med Procedures NM PET CT Skull Base to Mid-thigh [address] [place] [address] [facility] [place] [address] [place], [place] [address] Referral ID Status Reason Start Date Expiration Date Visits V isits Requested Authorized [id number] Closed Specialty 06/26/2019 12/24/2020 1 1 Service Requested Encounter Details Date Type Department Care Team Description 07/08/2019 Hospital Encounter Nuclear Medicine at [facility] , Canceled Bria Burks APRN (P-INCONVENIENT DATE [address] OR TIME) [facility] [place] [id number] [phone] Social History Tobacco Use Types Packs/Day Years [...] Sig Dispensed Refills Start Date End Date fluticasone/vilanterol Inhale 1 Dose into 0 (BREO ELLIPTA INHL) the lungs daily. cholecalciferol, Vitamin Take 2,000 Units by 0 D3, 2,000 unit Tablet mouth daily. loperamide (Imodium A-D) Take 2 mg by mouth 0 2 mg Capsule 4 times daily as needed for Diarrhea. losartan (COZAAR) 25 mg Take 25 mg by mouth 0 Tablet daily. chlorthalidone (HYGROTEN) Take 25 mg by mouth 0 25 mg Tablet daily. ALBUTEROL INHL Inhale into the 0 lungs every 4 hours as needed. triamcinolone (KENALOG) Apply topically 2 0 0.1 % Cream times daily as needed. metHOTREXate 2.5 mg Take 12.5 mg by 0 09/04/2019 Tablet mouth once a week. On Sunday b complex vitamins Take 1 capsule by 0 12/29/2021 Capsule mouth daily. omeprazole (PRILOSEC) 40 Take daily, 1/2 30 capsule 3 201709/04/2019 mg Capsule, Delayed hour prior to Release(E.C.) breakfast on an empty stomach. amLODIPine (NORVASC) 10 Take 10 mg by mouth 0 10/21/2019 mg Tablet daily. documented as of this encounter Plan of Treatment Upcoming Encounters Date Type Specialty Care Team Description 01/19/2022 Office Visit Hematology and Oncology Loan Burton APRN [facility] HEMATOLOGY/[place] [address] 01/19/2022 Infusion Hematology and Oncology Canc eled (F-ARIA CANCEL) 01/25/2022 Hospital Gastroenterology Jose Clark MD [facility] GASTROENTEROLOG Y DEPT. [place], [place] [id number] 01/25/2022 Surgery Gastroenterology Jose ClarkD, LOLA Yates MD ENDOSCOPY [facility] [place] [address] 01/26/2022 Office Visit Hematology and Oncology Fabian Cameron MD [facility] DR HEMATOLOGY/[place] [address] Loan Burton APRN [facility] HEMATOLOGY/[place] [address] 01/26/2022 Infusion Hematology and Oncology 02/02/2022 Office Visit Hematology and Oncology Fabian Cameron MD [facility] DR HEMATOLOGY/[place] [address] 02/02/2022 Infusion Hematology and Oncology 02/22/2022 Telephone Hematology and Oncology Siena Lloyd, MUKUND [facility] DR[place] [address] Scheduled Procedures Name Priority Associated Diagnoses Date/Time EGD, UPPER GI ENDOSCOPY EGD with stent vs 2021 12:00 PM EDT cryotherapy. documented as of this encounter Visit Diagnoses Not on filedocumented in this encounter Care Teams Clinical Rehabilitation Specialist Relationship Specialty Start Date End Date Farzaneh Winkler APRN PCP - General General Internal Medicine 06/05/[address] [place] [id number] documented as of this encounter
--- OUTSIDE RECORDS SUMMARY | 2022-01-19 07:37 | XMS_ITS | Encounter Summary ---
:1950 Author Organization [employer] [place] [address] Care Team Providers Name Role Phone Peterson [...] Expiration Date Visits Requ ested Visits Authorized [id number] 1 1 Encounter Details Date Type Department Care Team Description 09/05/2019 Hospital Encounter Same Day Program at Rajeev Kirby Primary lung Bria Escobar MD adenocarcinoma, [facility] [place] [phone] Social History Tobacco Use Types Packs/Day Years [...] Sign Reading Time Taken Comments Blood Pressure 139/67 09/05/2019 3:15 PM EDT Pulse 74 09/05/2019 3:15 PM EDT Temperature 36.3 ??C (97.3 ??F) 09/05/2019 2:37 PM EDT Respiratory Rate 12 09/05/2019 12:45 PM EDT Oxygen Saturation 96% 09/05/2019 3:15 PM EDT Inhaled Oxygen Concentration - - [...] Primary * Lula Nichole PA - Physician Telephone Station Repairer Procedure: Procedure(s) with comments: THORACOSCOPY; WITH BIOPSY(IES) [...] Hospital Course: Alin Meek was admitted to [facility] on 09/05/2019 via the Same Day [...] a nurse in the Thoracic Clinic at [phone]. After hours or on weekends or holidays please call: [phone] and ask to speak to the Thoracic Surgeon utility worker production. Exercise & Activity Level: As you recover [...] the Thoracic Clinic or the Thoracic Surgeon utility worker production after hours. Please take over the counter [...] General Instructions None No flowsheet data found. Alin Meek is being prescribed a prescription opioid [...] Referral to Home Health - at DISCHARGE [XFO4359 CPT(R)] As directed Process Instructions: Scheduling Instructions: Comments: DOCUMENTATION FOR VNA SERVICES (INCLUDING THOSE PATIENTS WITH MEDICARE COVERAGE REQUIRING HOME VNA SERVICES AND/OR HOSPICE SERVICES) PATIENT'S LOCATION: Alin Meek [address] [place] [address] (home) Cell: No relevant phone numbers on file. Hydrographic Engineer's Name:self/patient In discussion with the attending physician, it is certified that this patient is under their care and that they, or a Nurse Practitioner,Clinical Nurse specialist or Physician Telephone Station Repairer who is working directly with them, had [...] questions or concerns HOME HEALTH CARE AGENCY: [facility] [address], [place] [address] Start of care: 09/06/2019 FOR MEDICARE ONLY: [...] from this patient'sPCP: Farzaneh Winkler APRN [address] [facility] [address] All A agencies which cover the area of patient's residence have been reviewed, either verbally or in writing, and patient/family have chosen the home health care agency noted Questions: [facility] post discharge: home What services are requested: Registered Nurse Start date: Responsible MD post discharge contact info: Provider Contact Information: Primary Care Provider: Farzaneh Winkler APRN [phone] Discharge References/Attachments: Discharge References/Attachments None For questions regarding this document or issues relating to this hospitalization on the Thoracic Surgery Service, please contact Dr. Kirby's office at . Signed: TIARA Clarke 09/05/2019 Thoracic Surgery [facility] CC: PCP: Farzaneh Winkler APRN Referring: Shayna Sepulveda Md Pulmonary Health Service [address] [place] [address] documented in this encounter Discharge Instructions Discharge [...] usually goes away in 12-24 hours. Patient InstructionsCoTamir hermosillo MD - 09/05/2019 3:11 PM EDT Call if you have a fever of greater than 101 degrees, shaking chills, develop redness or drainage from your incision site(s), or if you have questions. During normal business hours, Sunday- Sunday 8:00a.m.-5:00 p.m., please call to speak to a nurse in the Thoracic Clinic at [phone]. After hours or on weekends or holidays please call: [phone] and ask to speak to the Thoracic Surgeon utility worker production. Exercise & Activity Level: As you recover [...] the Thoracic Clinic or the Thoracic Surgeon utility worker production after hours. Please take over the counter [...] Office of Care Management/Initial Assessment CDU/SDP/Emergency Department Private Branch Exchange Installer RN Mine Buck RN, BSN, ACM Pager # [phone] Patient: Alin Meek : 1950 (69 y.o.) [place]: [place] [address] LOS: 0 days Problem List Items Addressed This Visit Primary lung adenocarcinoma, right Relevant Orders BRONCHOSCOPY,DIAGNOSTIC INSERTION INDWELLING PLEURAL CATHETER W\CUFF NERVE BLOCK, INTERCOSTAL NERVE, MULTIPLE The patient/customer contact representative has been provided a list of Home Health Agencies/DME vendors which serve their preferred geographic area. A letter describing our affiliations was reviewed with them and theywere educated about their right to choose where referrals are placed. Patient requests referral to [facility]. PHONE: [phone] FAX: [phone] RN PlueRx chest tube management and education Expected date of discharge: TODAY from [facility] had pre-op teaching, reviewing DVD and care of PlueRx with SDP RN Isabel kumar. RN to call report to . [facility] will fax PlueRX form if needed to [facility]. Fax number noted above. Referral routed to the Clinical Product Manager for matching with agency/vendor and to provide [...] Contact: Stephanie Meek Address: [address] [place] [address] [facility] Relation: Spouse ?? Code status: Full Code [id number] - [place], [place] - [address] [place] [address] AT SEC OF [facility] & [address] [address] Plan: Care Management will continue to monitor progress, follow for continuity of care, and assist with discharge planning. ?? PCP: Farzaneh Winkler, INSECTICIDE MIXER, No future appointments. Dayna Buck RN - 09/05/2019 2:50 PM EDT Office of Care Management/Initial Assessment CDU/SDP/Emergency Department Private Branch Exchange Installer RN Mine Buck RN, BSN, ACM Pager # [phone] Patient: Alin Meek : 1950 (69 y.o.) [place] [facility] [place] [address] LOS: 1 day Problem List Items Addressed This Visit Primary lung adenocarcinoma, right Relevant Orders BRONCHOSCOPY,DIAGNOSTIC (Completed) INSERTION INDWELLING PLEURAL CATHETER W\CUFF (Completed) Referral to Home Health - at DISCHARGE NERVE BLOCK, INTERCOSTAL NERVE, MULTIPLE (Completed) [facility]. PHONE: [phone] FAX: [phone] Follow up completed. Past Medical History: Diagnosis [...] Emergency Contact: Stephanie Meek Address: [address] [place] [address] [facility] Relation: Spouse [id number] - [place], [place] - [address] [place] [address] AT [address] [facility] & [address] [address] Plan: Care Management will continue to monitor progress, follow for continuity of care, and assist with discharge planning. ?? PCP: Farzaneh Winkler, INSECTICIDE MIXER, No future appointments. Edyta Mcgregor RN - 09/05/2019 12:56 PM EDT 1203) Patient into PACU from OR. Attached to monitors, alarms on and appropriate for patient. Patient awakening a little disoriented. Giselle RN 1215) Orientation returned to normal. Giselle RN 1245) CXray obtained. Giselle RN 1255) Thoracic service paged to read xray and perhaps change pigtail reservoir so patient can go back to SDP. Giselle RN 1405) Thoracic oks cxray and comes bedside to cap pleurex tube. Oks dc to home. Giselle RN 1420) Handoff given to CO and patient transported to CO 44. Uneventful recovery. Giselle MARS Loan Greer RN - 09/05/2019 12:51 PM EDT This author reviewed a list of Home Health Agencies/DME vendors which serve their preferred geographic area. Affiliations were reviewed with them and they were educated about their right to choose where referrals are placed. Patient requests referral to [facility] [address], [place] [address] Expected date of discharge: 09/05/2019 Tabby Fry [...] TIARA Cat 09/05/2019 Thoracic Surgery Service Pager [phone] Associated attestation - Stan Kirby MD - [...] not aware of the referral. RS contacted [facility]. PHONE: [phone] FAX: [phone] And said that they did not receive the d/c summary. RS took care of this and the Home Health serviceis ready to see patient today. MD to call for follow-up and to confirm start of service. Covering pager #[phone] for today. Op Note - Stan Kirby MD - 09/05/2019 1:10 PM EDT [facility] Operative Note Patient Name: Alin Meek : [id number] MR#: [id number] Case Date: 09/05/2019 Surgeon: Surgeon(s) and Role: * Stan Kirby MD - Primary * Lula Nichole PA - Physician Telephone Station Repairer Preoperative diagnosis: Lung cancer with right pleural [...] [facility] HEMATOLOGY/[place] [address] 01/19/2022 Infusion Hematology and Oncology Canc eled (F-ARIA CANCEL) 01/25/2022 Hospital Gastroenterology Jose Clark MD [facility] GASTROENTEROLOG [place] [address] 01/25/2022 Surgery Gastroenterology Jose Clark EGD, LOLA Yates MD ENDOSCOPY [facility] DR GASTROENTEROLOG [place] [address] 01/26/2022 Office Visit Hematology and Oncology Fabian Cameron MD [facility] DR HEMATOLOGY/[place] [address] Loan Burton, NOLAN [facility] HEMATOLOGY/[place] [address] 01/26/2022 Infusion Hematology and Oncology 02/02/2022 Office Visit Hematology and Oncology Fabian Cameron MD [facility] DR HEMATOLOGY/[place] [address] 02/02/2022 Infusion Hematology and Oncology 02/22/2022 Telephone Hematology and Oncology Prema, Siena Samayoa, RD [facility] DRIVE HEMATOLOGY [place] [address] Scheduled Procedures Name Priority Associated Diagnoses Date/Time [...] procedure are i n the results section. NON-ENGINEERING OPERATIONS LEADER FINAL REPORT Routine 09/05/2019 11:24 Res ults [...] Signature POC Glucose 109 65 - 199 [facility] mg/dL [facility] Comment: Supplemental ranges: <140 mg/dL before meals <180 mg/dL all other times of the day Specimen Anatomical Collection Method Collection Time Receive d Time (Source) Location / / Volume Laterality Blood specimen 09/05/2019 3:21 PM 020 3:21 (specimen) EDT PM EDT Stan Kirby MD POINT OF CARE TEST ORDERABLE S Performing Organization Address City/State/[place] [address] XR Chest One View [...] For questions regarding this report, please contact th e number below. ? Electronically signed by: JUDITH Dotson [facility] ([phone]), at 09/05/2019 1:31 PM Narrative 09/05/2019 1:31 PM EDT EXAMINATION: XR [...] 09/05/2019 AM EDT 11:33 AM EDT Narrative [facility] - 09/05/2019 11:33 AM EDT Specimen requisition ordered. ??Separate Pathology report to follow Stan Kirby MD PATHOLOGY/CYTOLOGY ORDERABLE S Performing Organization Address City/State/[place] [address] Surgical Pathology Report (09/05/2019 11:29 AM EDT) Component Value Ref Test Analysis Performed At [facility] gist Range Method Time Signature Surgical [id number] ? Location: [facility]; A [facility] Report The signing pathologist has (i) examined the relevant preparation(s) for the [facility] specimen(s) and (ii) rendered or confirmed the diagnosis(es) . HOSPITAL LABORATORY . ?Surgic al Pathology DIAGNOSIS A - RIGHT posterior pleura - - Fibrous pleurisy. (see Discussion.) B - Inferior RIGHT pleural biopsy - - Fibrous and focal fibrinous pleurisy - (see Discussion.) Electronically signed by: ??Radha Petty DO Verified: ??09/09/2019 ?Pathologist Performed at: ??-[facility] Dept. of Pathology, [place], [place] DISCUSSION No lung carcinoma is seen [...] fresh. Quantity/Size: ??Two, 0.5-0.8 cm. Tissue Description: [place]-white, rubbery membranous tissue fr agments. Sections/Processing: Submitted en toto ??in 1 cassette labeled A1. B - Labeled/Fixative: Inferior right pleural biopsy, fresh. . SPECIMEN PROCESSING Quantity/Size: ??Single, 2.2 x 1.5 x 0.1 cm. Tissue Description: [place]-white, rubbery membranous tissue fr agment. Sections/Processing: Serially sectioned and entirely submitted in 1 cassette labe led B1. ??jennifer Specimen (Source) Anatomical Collection Method Collection Time Re ceived Time Location / / Volume Laterality 09/05/2019 11:29 AM EDT Stan Kirby MD PATHOLOGY/CYTOLOGY ORDERABLE S Performing Organization Address City/[facility]/ZIP [place] [address] Specimen to Pathology (09/05/2019 11:29 AM EDT) Specimen Anatomical Collection Method Collection Time Receive d Time (Source) Location / / Volume Laterality AP Specimen 09/05/2019 11:29 09/05/2019 AM EDT 11:29 AM EDT Narrative [facility] - 09/05/2019 11:29 AM EDT Specimen requisition ordered. ??Separate Pathology report to follow Stan Kirby MD PATHOLOGY/CYTOLOGY ORDERABLE S Performing Organization Address City/[facility]/[place]IP [place] [address] Non-Production Planning Supervisor Final Report (09/05/2019 11:24 AM EDT) Component Value Ref Test Analysis Performed At [facility] Range Method Time Signature Non-Production Planning Supervisor [id number] ? Location: [facility]; A [facility] Final Report [place] The signing pathologist has (i) examined the relevant preparation(s) for the [facility] specimen(s) and (ii) rendered or confirmed the diagnosis(es) . HOSPITAL LABORATORY . ? No n-Production Planning Supervisor Final DIAGNOSIS Atypical Electronically signed by: ??Sergio Sloan MD Verified: ??09/09/2019 ?Cytopathologist Performed at: ??-[facility] Dept. of Pathology, [place], [place] DISCUSSION Pleural fluid (thoracentesis): A few aty pical epithelioid cells are noted; the possibility of neoplasia is not absolutely excluded. See also the pleural biopsies, [id number]. --- Immunohistochemistry Studies --- Interpretation: ? Immunohistochemical [...] Organization Address City/State/[place] [address] Cytopathology Non-Gynecological (09/05/2019 11:24 AM EDT) Specimen Anatomical Collection Method Collection Time Receive d Time (Source) Location / / Volume Laterality AP Specimen 09/05/2019 11:24 09/05/2019 AM EDT 11:24 AM EDT Narrative [facility] - 09/05/2019 11:24 AM EDT Specimen requisition ordered. ??Separate Pathology report to follow Stan Kirby MD PATHOLOGY/CYTOLOGY ORDERABLE S Performing Organization Address City/State/ZIP [facility] [place] [address] documented in this encounter Visit Diagnoses Diagnosis Primary lung adenocarcinoma, right Lung cancer Malignant neoplasm of bronchus and lung, unspecified site documented in this encounter Admitting Diagnoses Diagnosis Lung cancer Malignant neoplasm of bronchus and lung, unspecified site documented in this encounter Administered Medications Inactive Administered Medications - up to 3 most recent administrations Medication Order MAR Action Action Date Dose Rate Site acetaminophen (Tylenol) tablet Given 09/05/2019 8:49 AM EDT 1,00 0 mg 1,000 mg 1,000 mg, Oral, ONCE, 1 dose, On Sun09/05/19 at 0900, Administer with SIP of H2O only., Day of Surgery (Day of Procedure), Routine heparin (Porcine) subcutaneous Given 09/05/2019 10:17 AM EDT 5,0 00 Units injection 5,000 Units 5,000 Units, Subcutaneous, ONCE, 1 dose, On Sun09/05/19 at 0930, Please administer prior to induction of anesthesia, Routine lactated ringers infusion New Bag 09/05/2019 8:50 AM EDT 1,000 mLs 100 mL/hr 1,000 mL, at 100 mL/hr, Intravenous, CONTINUOUS, Starting on Sun09/05/19 at 0900, Until Sun09/05/19 at 1432, Day of Surgery (Day of Procedure) documented in this encounter Active and Recently Administered Medications Times are shown in EDT. Scheduled Medication Order 09/03/2019 09/04/2019 09/05/2019 acetaminophen (Tylenol) tablet 1,000 mg (COMPLETED) 0849 (Given - Provider: Tabby Fry RN) 1,000 mg, Oral, ONCE, 1 dose, Sun 0 at 0900, Administer with SIP of H2O only., Day of Surgery (Day of Procedure), Routine ceFAZolin (Ancef) 2g in dextrose 5% 100 mL (2 x 1g/50mL premix b ags) IV 1059 (Canceled Entry - Provider: Kenia Chandra MD) 2 g, Intravenous, HAT IRONER TO O.R., 1 dos e, Sun09/05/19 at [...] Units (COMPLETED) 1017 (Given - Provider: Tabby Fry RN) 5,000 Units, Subcutaneous, ONCE, 1 dose, Sun09/05/19 at 0930, Please administer prior to induction of anesthesia, Routine Continuous Medication Order 09/03/2019 09/04/2019 09/05/2019 lactated ringers infusion (CANCELED) 0850 (New Bag - Provider: Tabby Fry, MADISYN) 1,000 mL, at 100 mL/hr, Intravenous, CON [...] Routine documented in this encounter Care Teams Lead Presser Relationship Specialty Start Date End Date Farzaneh Winkler, NOLAN PCP - General General Internal Medicine 06/05/[address] [place] [address] documented as of this encounter
--- OUTSIDE RECORDS SUMMARY | 2022-01-19 07:37 | XMS_ITS | Encounter Summary ---
:1950 Author Organization [facility] [place] [address] Care Team Providers Name Role Phone Farzaneh Winkler APRN Primary Care Provider Reason for Visit Reason Onset Date Comments Other 10/23/2019 PleurX catheter outp ut Encounter Details Date Type Department Care Team Description 10/23/2019 Telephone Thoracic Surgery at [facility] Er[facility] Othe r (PleurX catheter [facility] RN output ) [place] [address] Social History Tobacco Use Types Packs/Day [...] Telephone Encounter - Mariana Ervin RN - 10/23/2019 12:10 PM EDT TC to Mrs. Meek Hx: PleurX catheter placement for recurrent pleural effusion - now s/p TPA x 1 dose in clinic on 10/21/19. Calling to check in about plan for PleurX drainage. Per Dr. Jose will need to do twice a day drainage for 1 full week. Will connect next with drainage amounts. 10/21/19 once at home - drained 525 mls (beet colored drainage) 10/22/19 once at home - drained 550 mls (beet colored drainage) Has not drained yet today due to only having 3 kits left. She was able to call and place an order today for more kits. Explained that Dr. Jose recommends twice a day drainage for 1 full week. I am worried that I will not have enough kits. Again asked if she needed assistance ordering kits, she stated I did call this morning to have themsend 10. How long will this go on for, how long will we have to continue to drain or will he need this? Explained that there is not a known end at this time as we were just able to get this draining again. She knows to call with any questions or concerns. documented in this encounter Plan of Treatment Upcoming Encounters Date Type Specialty Care Team Description 01/19/2022 Office Visit Hematology and Oncology Loan Burton, NOLAN [facility] HEMATOLOGY/[place] [address] 01/19/2022 Infusion Hematology and Oncology Canc eled (F-ARIA CANCEL) 01/25/2022 Hospital Gastroenterology Jose Clark MD [facility] [place] [address] 01/25/2022 Surgery Gastroenterology Jose Clark UPPE R GI R, MD ENDOSCOPY [facility] [place] [address] 01/26/2022 Office Visit Hematology and Oncology Fabian Cameron MD [facility] HEMATOLOGY/[place] [address] Loan Burton, NOLAN [facility] HEMATOLOGY/[place] [address] 01/26/2022 Infusion Hematology and Oncology 02/02/2022 Office Visit Hematology and Oncology Fabian Cameron MD [facility] HEMATOLOGY/[place] [address] 02/02/2022 Infusion Hematology and Oncology 02/22/2022 Telephone Hematology and Oncology Siena Lloyd RD [facility] DRIVE [place] [address] Scheduled Procedures Name Priority Associated Diagnoses Date/Time EGD, UPPER GI ENDOSCOPY EGD with stent vs 2021 12:00 PM EDT cryotherapy. documented as of this encounter Visit Diagnoses Not on filedocumented in this encounter Care Teams Jig Boring Machine Set Up Operator Relationship Specialty Start Date End Date Farzaneh Winkler, LAY OUT WORKER PCP - General General Internal Medicine 06/05/[address] [place] [address] documented as of this encounter
--- OUTSIDE RECORDS SUMMARY | 2022-01-19 07:37 | XMS_ITS | Encounter Summary ---
:1950 Author Organization [facility] [place] [address] Care Team Providers Name Role Phone JoenamanFarzaneh Daria FRANCISCO Primary Care Provider Encounter Details Date Type Department Care Team Description 09/26/2019 Telephone Thoracic Surgery at [facility] [place]iana [place]vin, [place] [address] Social History Tobacco Use Types Packs/Day [...] Telephone Encounter - Mariana Ervin RN - 09/26/2019 3:25 PM EDT TC to Mrs Meek Hx: PleurX catheter placement for recurrent pleural effusion Mrs. Meek is stating that PleurX drainage from Sunday09/22/19 - was 350 mls betty colored less bubbles noted (09/17- 09/21) 09/25/19 - was 25 mls betty colored again less bubbles noted. Next drainage will be Sun09/29/19 to determine next plan. Will call to check in on Sunday. Mr. Meek is still feeling much better. Denies SOB, difficulty breathing, fevers, cough. They know to call with any questions or concerns. documented in this encounter Plan of Treatment Upcoming Encounters Date Type Specialty Care Team Description 01/19/2022 Office Visit Hematology and Oncology Loan Burton, NOLAN [facility] HEMATOLOGY/[place] [address] 01/19/2022 Infusion Hematology and Oncology Canc eled (F-ARIA CANCEL) 01/25/2022 Hospital Gastroenterology Jose Clark MD [facility] [place] [address] 01/25/2022 Surgery Gastroenterology Jose Clark EGDLOLA MD ENDOSCOPY [facility] [place] [address] 01/26/2022 Office Visit Hematology and Oncology Fabian Cameron MD [facility] HEMATOLOGY/[place] [address] Loan Burton, NOLAN [facility] HEMATOLOGY/[place] [address] 01/26/2022 Infusion Hematology and Oncology 02/02/2022 Office Visit Hematology and Oncology Fabian Cameron MD [facility] HEMATOLOGY/[place] [address] 02/02/2022 Infusion Hematology and Oncology 02/22/2022 Telephone Hematology and Oncology Siena Lloyd RD [facility] [place] [address] Scheduled Procedures Name Priority Associated Diagnoses Date/Time EGD, UPPER GI ENDOSCOPY EGD with stent vs 2021 12:00 PM EDT cryotherapy. documented as of this encounter Visit Diagnoses Not on filedocumented in this encounter Care Teams Unix Manager Relationship Specialty Start Date End Date Farzaneh Winkler, SEWING MACHINE MAINTENANCE MECHANIC PCP - General General Internal Medicine 06/05/[address] [place] [address] documented as of this encounter
--- OUTSIDE RECORDS SUMMARY | 2022-01-19 07:37 | XMS_ITS | Encounter Summary ---
:1950 Author Organization [facility] [place] [address] Care Team Providers Name Role Phone Farzaneh Winkler Daria FRANCISCO Primary Care Provider Reason for Visit Reason Comments Lung Cancer Consultation (Routine) - Closed Specialty Diagnoses / Procedures Referred By Contact Refer red To Contact Thoracic Surgery Diagnoses Thoracoscopic evaluation Shayna Sepulveda Finley, David J, MD MD [facility] DR [address] [place] [address] [place] [phone] Fax: Referral ID Status Reason Start Date Expiration Date Visits V isits Requested Authorized [id number] Closed Consult, 08/18/2019 08/17/2020 1 1 Test & Treat Encounter Details Date Type Department Care Team Description 08/26/2019 Office Visit Thoracic Surgery at Candice Tolliver Prim ary lung [facility] adenocarcinoma, right [facility] [address] [place] THORACIC SURGERY [address] [place] [address] [phone] Social History Tobacco Use Types Packs/Day Years [...] Sign Reading Time Taken Comments Blood Pressure 121/61 08/26/2019 8:51 AM EDT Pulse 90 08/26/2019 8:51 AM EDT Temperature 37 ??C (98.6 ??F) 08/26/2019 8:51 AM EDT Respiratory Rate 22 08/26/2019 8:51 AM EDT Oxygen Saturation 98% 08/26/2019 8:51 AM EDT Inhaled Oxygen Concentration - - Weight 138.3 kg (304 lb 12.8 oz) 08/26/2019 8:51 AM EDT Height 182.6 cm (5' 11.9) 08/26/2019 8:51 AM EDT Body Mass Index 41.45 08/26/2019 8:51 AM EDT documented in this encounter Patient Instructions Patient InstructionsMariana Ervin RN - 08/26/2019 9:00 AM EDT Thank you for visiting Dr. Tolliver in clinic 08/26/19 Dr. Tolliver would like to schedule you for your Bronchoscopy, R VATS pleural biopsies, pleurX catheter or talc pleurodesis. This is scheduled on Sunday. Your procedure is scheduled for Sunday. You will receive a phone call from the OR nurses on August after 2pm through 6 pm. They will confirm your arrival time, review what medications to take and when to stop eating and drinking. Your procedure will occur in receptionare 4W. The PleurX catheter system is designed to allow drainage of fluid that has accumulated in the chest.A tunneled catheter is placed under the skin of the chest and secured in place with a suture. A PleurX catheter is beneficial for patients who suffer from frequent pleural effusions. This system allowspatients to drain fluid from the comfort of their own home and reduces the need for frequent trips to the hospital or doctors office. You will be taught how to use the drainage kits that kit the PleurX catheter. You may have Visiting Nurses come to your house as well to assist you with emptying your PleurX catheter. If you have any questions or concerns regarding your PleurX catheter, please call Thoracic Surgery at [phone]. ?? Exercise each day for 30 minutes [...] questions or concerns. documented in this encounter H&P Notes Candice Tolliver MD - 08/26/2019 9:00 AM EDT Thoracic Surgery Attending Outpatient Consultation Note MD Belen Cast PA-C [place] [id number] FAX: Date of Consultation: 08/26/2019 This consultation has been requested by PCP: Farzaneh Winkler APRN Referring Provider: Shayna Ames MD Purpose for Consultation: FDG avid right pleural based nodules and loculated effusion HPI: Alin Meek is a 69 y.o. male with FDG avid right pleural based nodules and loculated effusion in the setting of known Right lung adenocarcinoma, stage IIIA (s/p definitive chemo/xrt (carbo/docetaxel and adjuvant immunotherapy with durvalumab completed 09/04/18)) who presents to discuss diagnostic and therapeutic options. Her PMHx is additionally significant for HTN, obesity, COPD and DM. He was last seen here in 2017 [...] wheeze, chest pain, fever, chills, weight loss. He is a former smoker at 1.5-2 PPD x 48 years but quit 3.5 years ago. He stopped drinking ~3.5 yearsago as well. He denies illicit drug use. Past Medical History: Patient Active Problem List Diagnosis Date Noted ??? Pain in joint 05/23/2018 ??? Low back pain 05/23/2018 ??? Benign essential hypertension 04/11/2018 ??? Chronic obstructive lung disease 04/11/2018 ??? Morbid obesity 04/11/2018 ??? Primary malignant neoplasm of lung 04/11/2018 ??? 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 Primary lung adenocarcinoma, right 07/02/2017 Past Medical History: Diagnosis Date ??? Adenocarcinoma, lung, right ??? COPD (chronic obstructive pulmonary disease) ??? DJD (degenerative joint disease) ??? HTN (hypertension), benign ??? PAC (premature atrial contraction) Past Surgical History: Past Surgical History: Procedure Laterality Date ??? LUMBAR DISC SURGERY ??? SUBTOTAL COLECTOMY 05/23/2016 ??? TOTAL KNEE ARTHROPLASTY Right ??? UMBILICAL HERNIA REPAIR Medications: Outpatient Medications Marked as Taking for the 08/26/19 encounter (Office Visit) with Candice Tolliver MD Medication Sig Dispense Refill ??? folic acid (Folvite) 1 mg Tablet Take 1 mg by mouth daily. ??? UNKNOWN TO PATIENT Take 1 tablet by mouth daily. Indications: anxiety pill [facility] ordered. Don't know what it is. ??? cholecalciferol, Vitamin D3, 2,000 unit Tablet Take 2,000 Units by mouth daily. ??? b complex vitamins Capsule Take 1 capsule by mouth daily. ??? amLODIPine (NORVASC) 10 mg Tablet Take 10 mg by mouth daily. ??? ALBUTEROL INHL Inhale into the lungs every 4 hours as needed. ??? triamcinolone (KENALOG) 0.1 % Cream Apply topically 2 times daily as needed. Allergies: Allergies Allergen Reactions ??? Lisinopril Angioedema Lips got swollen Family History: Family History Problem Relation Age of Onset ??? Cancer Brother throat Social History: Social History Socioeconomic History ??? Marital status: Spouse name: Stephanie ??? Number of children: Not on file ??? Years of education: Not on file ??? Highest education level: Not on file Occupational History ??? Occupation: [employer] Comment: for 8 months ??? 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 Financial resource strain: Not on file ??? Food insecurity Worry: Not on file Inability: Not on file ??? Transportation needs Medical: Not on file Non-medical: Not on file Tobacco Use ??? Smoking status: Former Smoker Packs/day: 2.00 Types: Cigarettes Start date: 1969 Last attempt to quit: 2016 Years since quittin.1 ??? Smokeless tobacco: Former User Types: Chew Quit date: 1974 ??? Tobacco comment: 2016 quit Substance and Sexual Activity ??? Alcohol use: No Comment: usd to drink heavily ( 12 pck/day) quit 2015 ??? Drug use: No ??? Sexual activity: Not on file Lifestyle ??? Physical activity Days per week: Not on file Minutes per session: Not on file ??? Stress: Not on file Relationships ??? Social connections Talks on phone: Not on file Gets together: Not on file Attends shinto service: Not on file Active member of club or organization: Not on file Attends meetings of clubs or organizations: Not on file Relationship status: Not on file ??? Intimate partner violence Fear of current or ex partner: Not on file Emotionally abused: Not on file Physically abused: Not on file Forced sexual activity: Not on file Other Topics Concern ??? Not on file Social History Narrative ??? Not on file REVIEW OF SYSTEMS: General: Denies fatigue, weight loss, chills, night sweats. Neuro: Denies seizure, TIA, CVA, BLEDSOE, visual changes, diplopia, weakness/numbness in extremities Psychiatric: Denies psychiatric diagnoses Cardiovascular: Denies CAD, family history of cardiac disease, CHF, hyperlipidemia. H/o PAC Respiratory: Denies asthma, cough, hemoptysis, respiratory infection, TB or exposure to TB. GI: denies change in bowel habits : denies change in voiding habits Hematologic: Denies history of DVT, PE Endocrine: denies thyroid disease. +DM Musculoskeletal: + R knee replacement and back surgery Integument: Denies skin cancer. Physical Exam: BP 121/61 (Patient Position: Sitting) Pulse 90 Temp 37 ??C (98.6 ??F) (Temporal) Resp 22 Ht 182.6 cm (5' 11.9) Wt (!) 138.3 kg (304 lb 12.8 oz) SpO2 98% BMI 41.45 kg/m?? General Appearance: Alert, cooperative, no distress, appears stated age, presets in wheelchair HEENT: PERRL, MMM, non-icteric Neck: Supple, symmetrical, trachea midline, no palpable cervical adenopathy Lungs: Absent breath sounds right base to mid lung field, clear at right apex, left CTA, respirations unlabored, no wheezes, crackles or ronchi. Heart: Regular rate and rhythm, S1 and S2 normal, no murmur, rub, or gallop Abdomen: Obese, soft, non-tender, bowel sounds normo-active in all four quadrants. Difficult to assess organomegaly/mass 2/2 body habitus Extremities: Extremities normal, no cyanosis, clubbing. Trace b/l edema Neurologic: A+Ox3, cranial nerves II-XII grossly intact Musculoskeletal: 5/5 throughout with normal gait Diagnostics: I have independently visualized all relevant imaging studies, including: PET (07/22/2019): 1. Multiple mildly FDG avid pleural-based RIGHT lung nodules, concerning for recurrent disease. 2. Consolidated/fibrotic lung adjacent to the RIGHT hilum is favored to represent postradiation change. 3. Persistent partially loculated moderate RIGHT pleural effusion. Assessment: This is a 69 y.o. male with FDG avid right pleural based nodules and plerual effusion inthe setting of known right adenocarcinoma, stage IIIA concerning for recurrent disease. Plan of Management: 1. Bronchoscopy, R VATS pleural biopsy, possible pleurodesis versus pleurx catheter placement. Consent signed. Scheduled for 09/05/2019. 2. CBC/BMP/EKG pre-op 3. 30 minutes of aerobic exercise daily, at minimum. Discussed importance of this prior to and during treatment. 4. Call with any questions Belen Burns PA-C 08/26/2019 Thoracic Surgery [facility] I have seen the patient and reviewed the PA/resident's above history and I agree with the details aswritten. The assessment and plan were formulated in discussion with me and I agree with them as documented. Assessment: This is a 69 y.o. male with h/o Stage IIIA lung cancer tx with definitive chemo/XRT withnew FDG avid right pleural based nodules and recurrent plerual effusion and severe SOB. This is concerning for recurrent lung cancer. Plan of Management: 1. Bronchoscopy, R VATS pleural biopsy, possible pleurodesis versus pleurx catheter placement. I explained that if his lung expands, we will do a pleurodesis, if not, we will place a pleurx catheter --he understands and agrees with the plan. Consent signed. Scheduled for 09/05/2019. 2. CBC/BMP/EKG pre-op 3. 30 minutes of aerobic exercise daily, at minimum. Discussed importance of this prior to and during treatment as best as tolerated. 4. Follow up with med onc after biopsy results back and with Pulm for ongoing care. 5. Call with any questions CANDICE TOLLIVER MD documented in this encounter Plan of Treatment Upcoming Encounters Date Type Specialty Care Team Description 01/19/2022 Office Visit Hematology and Oncology Loan Burton, NOLAN [facility] HEMATOLOGY/[place] [address] 01/19/2022 Infusion Hematology and Oncology Canc eled (F-ARIA CANCEL) 01/25/2022 Hospital Gastroenterology Jose Clark MD [facility] [place] [address] 01/25/2022 Surgery Gastroenterology Jose Clark UPPE R GI R, MD ENDOSCOPY [facility] [place] [address] 01/26/2022 Office Visit Hematology and Oncology Fabian Cameron MD [facility] HEMATOLOGY/[place] [address] Loan Burton APRN [facility] HEMATOLOGY/[place] [address] 01/26/2022 Infusion Hematology and Oncology 02/02/2022 Office Visit Hematology and Oncology Fabian Cameron MD [facility] HEMATOLOGY/[place] [address] 02/02/2022 Infusion Hematology and Oncology 02/22/2022 Telephone Hematology and Oncology Siena Lloyd RD [facility] DRIVE [place] [address] Scheduled Procedures Name Priority Associated Diagnoses Date/Time EGD, UPPER GI ENDOSCOPY EGD with stent vs 2021 12:00 PM EDT cryotherapy. documented as of this encounter Procedures Procedure Name Priority Date/Time Associated Diagnosis Comme nts EKG 12-LEAD Routine 08/26/2019 9:55 AM Primary lung Results f or this EDT adenocarcinoma, procedure ar e in right the results section. THORACOSCOPY; WITH Routine 08/26/2019 9:36 AM Primary lung BIOPSY(IES) OF EDT adenocarcinoma, PLEURA right documented in this encounter Results (ABNORMAL) Comprehensive metabolic panel (non-fasting) (08/26/2019 11:04 AM EDT) athologist Signature Glucose Lvl 91 65 - 199 [facility] mg/dL [facility] Comment: Diabetes: >=200 mg/dL plus symp toms BUN 21 (H) 10 - 20 mg/dL [facility] Creatinine 1.00 0.80 - 1.50 mg/dL [facility] Sodium 132 (L) 135 - 145 mmol/L [facility] Potassium 4.4 3.5 - 5.0 mmol/L [facility] Comment: Please note: ??Patients with WBC >100,00 0 may have falsely elevated Potassium levels. ??For accurate Potassium quantif ication in these patients send serum separator tube (gold top) for subsequent determinations. ??Contact the Clinical Chemistry Laboratory if there are any qu estions. Chloride 97 (L) 98 - 107 mmol/L [facility] CO2 24 22 - 31 mmol/L [facility] Anion Gap 11 5 - 15 mmol/L [facility] Calcium 9.4 8.5 - 10.5 mg/dL [facility] Total Protein 8.0 6.1 - 8.0 gm/dL [facility] Albumin 3.9 3.2 - 5.2 gm/dL [facility] AST 12 0 - 39 unit/L [facility] ALT 12 0 - 55 unit/L [facility] Alk Phos 84 40 - 130 unit/L [facility] Total Bilirubin 0.4 0.2 - 1.3 mg/dL [facility] Estimated GFR 77 >=60 mL/min/1.73 m?? [facility] Comment: The eGFR was calculated using the CKD-EP I equation. As with all creatinine based estimates of kidney function, eGFR values calculated with the CKD-EPI equation are not accurate in patients wi th acute kidney failure, extremes of body mass or the acutely ill. [email or web address]/[facility] eGFR 89 >=60 mL/min/1.73 m?? [facility] Comment: The eGFR was calculated using the CKD-EP I equation. As with all creatinine based estimates of kidney function, eGFR values calculated with the CKD-EPI equation are not accurate in patients wi th acute kidney failure, extremes of body mass or the acutely ill. [email or web address]/[facility] Specimen Anatomical Collection Method Collection Time Receive d Time (Source) Location / / Volume Laterality Blood specimen 08/26/2019 11:04 0 (specimen) AM EDT 11:15 AM EDT Resulting Agency Comment Spec In Lab Candice Tolliver MD CHEMISTRY ORDERABLES Performing Organization Address City/State/[place] [address] EKG 12 Lead (08/26/2019 9:55 AM EDT) [facility] gist Method Time Signature Ventricular rate 89 BPM MUSE SYSTEM Atrial Rate 89 BPM MUSE SYSTEM P-R Interval 148 ms MUSE SYSTEM QRS Duration 88 ms MUSE SYSTEM Q-T Interval 370 ms MUSE SYSTEM QTC Calculated 450 ms MUSE SYSTEM (Bezet) Calculated P [place]lew 12 degrees MUSE SYSTEM Calculated R [place] 12 degrees MUSE SYSTEM Calculated T [place] 35 degrees MUSE SYSTEM INTERPRETATION Normal sinus rhythm MUSE SYSTEM Normal ECG No previous ECGs available Confirmed by MD Alison, Ramone Henry ([id number]) on 08/26/2019 1 2:50:56 PM Specimen Anatomical Collection Method Collection Time Receive d Time (Source) Location / / Volume Laterality 08/26/2019 9:55 AM 0 EDT 12:50 PM EDT Candice Tolliver MD ECG ORDERABLES Performing Organization Address City/State/ZIP Code Phon e Number MUSE SYSTEM documented in this encounter Visit Diagnoses Diagnosis Primary lung adenocarcinoma, right documented in this encounter Care Teams Public Health Teacher Relationship Specialty Start Date End Date Farzaneh Winkler, NOLAN PCP - General General Internal Medicine 06/05/[address] [place] [phone] documented as of this encounter
--- OUTSIDE RECORDS SUMMARY | 2022-01-19 07:37 | XMS_ITS | Encounter Summary ---
:1950 Author Organization [facility] [place] [address] Care Team Providers Name Role Phone Farzaneh Winkler APRN Primary Care Provider Reason for Visit Reason Onset Date Comments Other 10/13/2019 calling to check in PleurX catheter Encounter Details Date Type Department Care Team Description 10/13/2019 Telephone Thoracic Surgery at Mariana Ervin [facility] (calling to check [facility] RN in PleurX catheter) [place] [address] Social History Tobacco Use Types Packs/Day Years [...] Telephone Encounter - Mariana Ervin RN - 10/13/2019 2:15 PM EDT TC back to Mrs. Meek Hx: PleurX catheter placement for recurrent pleural effusion Spoke with Mrs. Meek who stated that the PleurX drainage was on 09/28 - 300 mls 10/01 - 25 mls 10/05 - 10 mls 10/08 - a few drops 10/11 - zero She is going to next drain him on 10/19/19 If there is no output, will have PleurX removed after CXR. Mrs. Meek was in agreement with this plan. She knows to call with any questions or concerns documented in this encounter Plan of Treatment Upcoming Encounters Date Type Specialty Care Team Description 01/19/2022 Office Visit Hematology and Oncology Loan Burton, NOLAN [facility] HEMATOLOGY/[place] [address] 01/19/2022 Infusion Hematology and Oncology Canc eled (F-ARIA CANCEL) 01/25/2022 Hospital Gastroenterology Jose Clark MD [facility] [place] [address] 01/25/2022 Surgery Gastroenterology Jose Clark EGLOLA Escobar GI MD [place] ENDOSCOPY [facility] [place] [address] 01/26/2022 Office Visit Hematology and Oncology Fabian Cameron MD [facility] DR HEMATOLOGY/[place] [address] Loan Burton APRN [facility] HEMATOLOGY/[place] [address] 01/26/2022 Infusion Hematology and Oncology 02/02/2022 Office Visit Hematology and Oncology Fabian Cameron MD [facility] HEMATOLOGY/[place] [address] 02/02/2022 Infusion Hematology and Oncology 02/22/2022 Telephone Hematology and Oncology Siena Lloyd RD [facility] [place] [address] Scheduled Procedures Name Priority Associated Diagnoses Date/Time EGD, UPPER GI ENDOSCOPY EGD with stent vs 2021 12:00 PM EDT cryotherapy. documented as of this encounter Visit Diagnoses Not on filedocumented in this encounter Care Teams Library Technical Assistant Relationship Specialty Start Date End Date Farzaneh Winkler, DIP TANKER PCP - General General Internal Medicine 06/05/[address] [place] [id number] documented as of this encounter
--- OUTSIDE RECORDS SUMMARY | 2022-01-19 07:37 | XMS_ITS | Encounter Summary ---
:1950 Author Organization [facility] [place] [address] Care Team Providers Name Role Phone PetersonFarzaneh Daria FRANCISCO Primary Care Provider Reason for Visit Reason Onset Date Comments Other 08/15/2019 Encounter Details Date Type Department Care Team Description 08/15/2019 Telephone [facility] [facility] [place] [address] Social History Tobacco Use Types Packs/Day Years [...] this encounter Miscellaneous Notes Telephone Encounter - Aldo Larose Trixie - 08/15/2019 3:39 PM EST Caller and relationship to patient (if other than patient): Dr. Zayda Sepulveda, Transit Operator at [facility]. option 3 Best time to reach caller: the office closes at 4pm today. Message or Reason for Call: Dr. Jedlovszky needs to speak with Dr. Jose Appt Needed and Reason: na Provider: Damon documented in this encounter Plan of Treatment Upcoming Encounters Date Type Specialty Care Team Description 01/19/2022 Office Visit Hematology and Oncology oLan Burton, NOLAN [facility] HEMATOLOGY/[place] [address] 01/19/2022 Infusion Hematology and Oncology Canc eled (F-ARIA CANCEL) 01/25/2022 Hospital Gastroenterology Jose Clark MD [facility] [place] [address] 01/25/2022 Surgery Gastroenterology Jose Clark UPPE R GI R, MD ENDOSCOPY [facility] [place] [address] 01/26/2022 Office Visit Hematology and Oncology Fabian Cameron MD [facility] HEMATOLOGY/[place] [address] Loan Burton, NOLAN [facility] HEMATOLOGY/[place] [address] 01/26/2022 Infusion Hematology and Oncology 02/02/2022 Office Visit Hematology and Oncology Fabian Cameron MD [facility] HEMATOLOGY/[place] [address] 02/02/2022 Infusion Hematology and Oncology 02/22/2022 Telephone Hematology and Oncology Siena Lloyd RD [facility] DRIVE [place]OLOGY [place] [address] Scheduled Procedures Name Priority Associated Diagnoses Date/Time EGD, UPPER GI ENDOSCOPY EGD with stent vs 2021 12:00 PM EDT cryotherapy. documented as of this encounter Visit Diagnoses Not on filedocumented in this encounter Care Teams Photo Manager Relationship Specialty Start Date End Date Farzaneh Winkler, SALES EXECUTIVE PCP - General General Internal Medicine 06/05/[address] [place] [phone] documented as of this encounter
--- OUTSIDE RECORDS SUMMARY | 2022-01-19 07:37 | XMS_ITS | Encounter Summary ---
:1950 Author Organization [facility] [place] [address] Care Team Providers Name Role Phone Farzaneh Winkler APRN Primary Care Provider Encounter Details Date Type Department Care Team Description 10/21/2019 Hospital Encounter XRay at [facility] Primary lung adenocarcinoma, right; [address] [place] [address] Social History Tobacco Use Types Packs/Day [...] Sig Dispensed Refills Start Date End Date amLODIPine (Norvasc) 10 Take 10 mg by [...] Hematology and Oncology Loan Burton APRN [facility] HEMATOLOGY/[place] [address] 01/19/2022 Infusion Hematology and Oncology Canc eled (F-ARIA CANCEL) 01/25/2022 Hospital Gastroenterology Jose Clark MD [facility] [place] [address] 01/25/2022 Surgery Gastroenterology Jose Clark UPPE R GI R, MD ENDOSCOPY [facility] DR [place] [address] 01/26/2022 Office Visit Hematology and Oncology Fabian Cameron MD [facility] HEMATOLOGY/[place] [address] Loan Burton APRN [facility] HEMATOLOGY/[place] [address] 01/26/2022 Infusion Hematology and Oncology 02/02/2022 Office Visit Hematology and Oncology Fabian Cameron MD [facility] DR HEMATOLOGY/[place] [address] 02/02/2022 Infusion Hematology and Oncology 02/22/2022 Telephone Hematology and Oncology Siena Lloyd RD [facility] [address]IVE HEMATOLOGY [place] [address] Scheduled Procedures Name Priority Associated Diagnoses Date/Time EGD, UPPER GI ENDOSCOPY EGD with stent vs 2021 12:00 PM EDT cryotherapy. documented as of this encounter Procedures Procedure Name Priority Date/Time Associated Diagnosis Comme nts XR CHEST PA AND Routine 10/21/2019 10:19 AM Primary lung Resul ts for this LATERAL EDT adenocarcinoma, procedure ar e in right the results Pleural effusion section. documented in this encounter Results XR Chest PA & Lateral (Generic) (10/21/2019 10:19 AM EDT) Anatomical Region Laterality Modality Chest N/A Digital Radiography Specimen (Source) Anatomical Location Collection Method / Collectio n Time Received Time / Laterality Volume Impressions 10/21/2019 10:24 AM EDT Loculated right sided pleural effusion has reaccumulated. The pneumothorax has resolved. Thank you for letting us participate in the care of this patient. For questions regarding this report, please contact e number below. ? Narrative 10/21/2019 10:24 AM EDT EXAMINATION: XR CHEST PA AND LATERAL (GENERIC) CLINICAL HISTORY: hx of pleural effusion with PleurX catheter in place, please eval for changes, ptx, effusion TECHNIQUE: PA and lateral views of the chest COMPARISON: 09/05/2019 FINDINGS: There is a moderate loculated right-side d pleural effusion with increase in accumulation of pleural fluid compared t o prior. The pneumothorax component has resolved. There is a right-sided Pleurx catheter with tip terminating near the right upper lobe. Right-sided Port-A-Cat h tip was seen to be in the right subclavian vein on chest CT from June 2019, unchanged in position. Mediastinal shift to the right is unchan ged. No left-sided pneumothorax or pleural effusion. There is partial atele ctasis of the right lung. Procedure Note Sulaiman Cagle MD - 10/21/2019Formatting o f this note might be different from the original. EXAMINATION: XR CHEST PA AND LATERAL ([facility]) CLINICAL HISTORY: hx of pleural effusion with PleurX catheter in place, please eval for changes, ptx, effusion TECHNIQUE: PA and lateral views of the chest COMPARISON: 09/05/2019 FINDINGS: There is a moderate loculated right-side d pleural effusion with increase in accumulation of pleural fluid compared t o prior. The pneumothorax component has resolved. There is a right-sided Pleurx catheter with tip terminating near the right upper lobe. Right-sided Port-A-Cat h tip was seen to be in the right subclavian vein on chest CT from June 2019, unchanged in position. Mediastinal shift to the right is unchan ged. No left-sided pneumothorax or pleural effusion. There is partial atele ctasis of the right lung. IMPRESSION Loculated right sided pleural effusion h as reaccumulated. The pneumothorax has resolved. Thank you for letting us participate in the care of this patient. For questions regarding this report, please contact e number below. Electronically signed by: Sulaiman Cagle [facility] ([phone]), at 10/21/2019 10:24 AM Otf Jose MD IMG DX ORDERABLES documented in this encounter Visit Diagnoses Diagnosis Primary lung adenocarcinoma, right Pleural effusion Unspecified pleural effusion documented in this encounter Care Teams Train Driver Relationship Specialty Start Date End Date Farzaneh Winkler, HAND BRIM IRONER PCP - General General Internal Medicine 06/05/[address] [place] [address] documented as of this encounter
--- OUTSIDE RECORDS SUMMARY | 2022-01-19 07:37 | XMS_ITS | Encounter Summary ---
:1950 Author Organization [facility] [place] [address] Care Team Providers Name Role Phone PetersonFarzaneh Daria FRANCISCO Primary Care Provider Reason for Visit Reason Onset Date Comments Other 10/20/2019 pleurX catheter outp uts Encounter Details Date Type Department Care Team Description 10/20/2019 Telephone Thoracic Surgery at [facility] (pleurX catheter [facility] RN outputs) [place] [address] Social History Tobacco Use Types Packs/Day [...] Telephone Encounter - Mariana Ervin RN - 10/20/2019 9:46 AM EDT TC from Mrs. Meek in regards to Mr. Meek PleurX catheter ?? Hx: PleurX catheter placement for recurrent pleural effusion ?? Spoke with Mrs. Meek who stated that the PleurX drainage was on 09/28 - 300 mls 4/16 - 25 mls 10/05 - 10 mls 10/08 - a few drops 10/11 - zero 10/19/19 - drops Will discuss with Dr. Bernal/Dr. Jose and most likely CXR and appt this Sunday. documented in this encounter Plan of Treatment Upcoming Encounters Date Type Specialty Care Team Description 01/19/2022 Office Visit Hematology and Oncology Loan Burton APRN [facility] HEMATOLOGY/[place] [address] 01/19/2022 Infusion Hematology and Oncology Canc eled (F-ARIA CANCEL) 01/25/2022 Hospital Gastroenterology Jose Clark MD [facility] [place] [address] 01/25/2022 Surgery Gastroenterology Jose Clark EGLuz, UPREENA Yates MD ENDOSCOPY [facility] [place] [address] 01/26/2022 Office Visit Hematology and Oncology Fabian Cameron MD [facility] HEMATOLOGY/[place] [address] Loan Burton APRN [facility] HEMATOLOGY/[place] [address] 01/26/2022 Infusion Hematology and Oncology 02/02/2022 Office Visit Hematology and Oncology Fabian Cameron MD [facility] HEMATOLOGY/[place] [address] 02/02/2022 Infusion Hematology and Oncology 02/22/2022 Telephone Hematology and Oncology Siena Lloyd RD [facility] [place]OLOGY [place] [address] Scheduled Procedures Name Priority Associated Diagnoses Date/Time EGD, UPPER GI ENDOSCOPY EGD with stent vs 2021 12:00 PM EDT cryotherapy. documented as of this encounter Visit Diagnoses Not on filedocumented in this encounter Care Teams Front Man Relationship Specialty Start Date End Date Farzaneh Winkler, MARINE PAINTER PCP - General General Internal Medicine 06/05/[address] [place] [address] documented as of this encounter
--- OUTSIDE RECORDS SUMMARY | 2022-01-19 07:37 | XMS_ITS | Encounter Summary ---
:1950 Author Organization [facility] [place] [address] Care Team Providers Name Role Phone PetersonRamónrubio Huff APRN Primary Care Provider Reason for Visit Reason Onset Date Comments Other 09/09/2019 pleurX catheter kits Encounter Details Date Type Department Care Team Description 09/09/2019 Telephone Thoracic Surgery at [facility] (pleurX catheter [facility] RN kits) [place] [address] Social History Tobacco Use Types Packs/Day [...] Telephone Encounter - [facility] Ervin RN - 09/09/2019 12:39 PM EDT TC to Mr. Meek Hx: pleurX catheter placement Mr. Meek is doing well. Only getting a very small amount of honey colored drainage (barely fills the bottom). Calling Mr. Meek with an update regarding PleurX catheter kits. Spoke with Opal at [facility] - [phone] Who stated that they have received the orders for Mr. Meek and that Megan was working on getting him started with a shipment. Mr. Meek is aware of the plan above and knows to call if he does not hear from [facility] by tomorrow. documented in this encounter Plan of Treatment Upcoming Encounters Date Type Specialty Care Team Description 01/19/2022 Office Visit Hematology and Oncology Loan Burton APRN [facility] HEMATOLOGY/[place] [address] 01/19/2022 Infusion Hematology and Oncology Canc eled (F-ARIA CANCEL) 01/25/2022 Hospital Gastroenterology Jose Clark MD [facility] [place] [address] 01/25/2022 Surgery Gastroenterology Jose Clark UPPE R GI R, MD ENDOSCOPY [facility] [place] [address] 01/26/2022 Office Visit Hematology and Oncology Fabian Cameron MD [facility] DR HEMATOLOGY/[place] [address] Loan Burton APRN [facility] HEMATOLOGY/[place] [address] 01/26/2022 Infusion Hematology and Oncology 02/02/2022 Office Visit Hematology and Oncology Fabian Cameron MD [facility] HEMATOLOGY/[place] [address] 02/02/2022 Infusion Hematology and Oncology 02/22/2022 Telephone Hematology and Oncology Siena Lloyd RD [facility] [place] [address] Scheduled Procedures Name Priority Associated Diagnoses Date/Time EGD, UPPER GI ENDOSCOPY EGD with stent vs 2021 12:00 PM EDT cryotherapy. documented as of this encounter Visit Diagnoses Not on filedocumented in this encounter Care Teams Tip Stretcher Relationship Specialty Start Date End Date Farzaneh Winkler, PHOTO MASK CLEANER PCP - General General Internal Medicine 06/05/[address] [place] [address] documented as of this encounter
--- OUTSIDE RECORDS SUMMARY | 2022-01-19 07:37 | XMS_ITS | Encounter Summary ---
:1950 Author Organization [facility] [place] [address] Care Team Providers Name Role Phone PetersonFarzaneh Daria FRANCISCO Primary Care Provider Reason for Visit Reason Onset Date Comments Other 09/18/2019 PleurX Encounter Details Date Type Department Care Team Description 09/18/2019 Telephone Thoracic Surgery at [facility] Mariana Ervin RN Other (PleurX ) [place] [address] Social History Tobacco Use Types Packs/Day [...] Telephone Encounter - Mariana Ervin RN - 09/18/2019 3:43 PM EDT TC from Mrs. Meek Hx: PleurX catheter placement for recurrent pleural effusion Mrs. Meek is calling to state that his pleurX drainage has been: 09/13/19 - 50 mls 09/14/19 - 40 mls 09/15/19 - 35 mls 09/16/19 - 50 mls 09/17/19 - 10 mls 09/18/19 - 5 mls I had to pay out of pocket for the last delivery of kits and we just can't afford that. It was $250.00 Call to [facility] Spoke with Opal She ran a new order and the cost would be $90.30 Call back to Mrs. Meek To explain the reason for the first payment of $250.00 And the next payment would be $90.30. She stated this is a lot better now. She knows to drain on Sunday and call on Sunday with report. May go to every 2 to 3 days. She is in agreement with this plan. documented in this encounter Plan of Treatment Upcoming Encounters Date Type Specialty Care Team Description 01/19/2022 Office Visit Hematology and Oncology Loan Burton, NOLAN [facility] HEMATOLOGY/[place] [address] 01/19/2022 Infusion Hematology and Oncology Canc eled (F-ARIA CANCEL) 01/25/2022 Hospital Gastroenterology Jose Clark MD [facility] GASTROENTEROLOG [place] [address] 01/25/2022 Surgery Gastroenterology Jose Clark UPPE R GI R, MD ENDOSCOPY [facility] DR GASTROENTEROLOG [place] [address] 01/26/2022 Office Visit Hematology and Oncology Fabian Cameron MD [facility] HEMATOLOGY/[place] [address] Loan Burton, NOLAN [facility] HEMATOLOGY/[place] [address] 01/26/2022 Infusion Hematology and Oncology 02/02/2022 Office Visit Hematology and Oncology Fabian Cameron MD [facility] HEMATOLOGY/[place] [address] 02/02/2022 Infusion Hematology and Oncology 02/22/2022 Telephone Hematology and Oncology Siena Lloyd RD [facility] DRIVE HEMATOLOGY [place] [address] Scheduled Procedures Name Priority Associated Diagnoses Date/Time EGD, UPPER GI ENDOSCOPY EGD with stent vs 2021 12:00 PM EDT cryotherapy. documented as of this encounter Visit Diagnoses Not on filedocumented in this encounter Care Teams Diamond Setter Apprentice Relationship Specialty Start Date End Date Farzaneh Winkler, PIE ICER MACHINE PCP - General General Internal Medicine 06/05/[address] [place] [address] documented as of this encounter
--- OUTSIDE RECORDS SUMMARY | 2022-01-19 07:37 | XMS_ITS | Encounter Summary ---
:1950 Author Organization [facility] [place] [address] Care Team Providers Name Role Phone Farzaneh Winkler APRN Primary Care Provider Encounter Details Date Type Department Care Team Description 08/26/2019 Laboratory Appointment Lab 3L [facility] adenocarcinoma, [place] [id number] Social History Tobacco Use Types Packs/Day Years [...] Visit Hematology and Oncology Loan Burton APRN [facility] HEMATOLOGY/[place] [address] 01/19/2022 Infusion Hematology and Oncology Canc eled (F-ARIA CANCEL) 01/25/2022 Hospital Gastroenterology Jose Clark MD [facility] [place] [address] 01/25/2022 Surgery Gastroenterology Jose Clark EGD, LOLA Yates MD ENDOSCOPY [facility] DR [place]STROENTER[place] [address] 01/26/2022 Office Visit Hematology and Oncology Fabian Cameron MD [facility] DR HEMATOLOGY/[place] [address] Loan Burton APRN [facility] HEMATOLOGY/[place] [address] 01/26/2022 Infusion Hematology and Oncology 02/02/2022 Office Visit Hematology and Oncology Fabian Cameron MD [facility] DR HEMATOLOGY/[place] [address] 02/02/2022 Infusion Hematology and Oncology 02/22/2022 Telephone Hematology and Oncology Siena Lloyd, RD [facility] DRIVE HEMATOLOGY [place] [address] Scheduled Procedures Name Priority Associated Diagnoses Date/Time EGD, UPPER GI ENDOSCOPY EGD with stent vs 2021 12:00 PM EDT cryotherapy. documented as of this encounter Procedures Procedure Name Priority Date/Time Associated Comments Diagnosis HEMOGRAM Routine 08/26/2019 11:04 Primary lung Results for this AM EDT adenocarcinoma, procedure ar e in right the results section. DIFFERENTIAL, Routine 08/26/2019 11:04 Primary lung Results fo r this AUTOMATED AM EDT adenocarcinoma, procedure ar e in right the results section. HC CBC,PLT & AUTO Routine 08/26/2019 11:04 Primary lung DIFF AM EDT adenocarcinoma, right HC VENIPUNCTURE Routine 08/26/2019 11:04 Primary lung Results for this AM EDT adenocarcinoma, procedure ar e in right the results section. documented in this encounter Results (ABNORMAL) Differential, Automated (08/26/2019 11:04 AM EDT) Patholo gist Method Time Signature Neutrophils % 75.8 % [facility] LABOR[facility]ORY Neutr Abs (ANC) 8.27 (H) 1.70 - [facility] 6.10 [facility] x10(3)/[facility] LABORATORY Lymphocytes % 15.5 % [facility] Lymphocytes Abs 1.7 0.9 - 3.2 [facility] x10(3)/[facility] LABORATORY Monocytes % 6.4 % [facility] Monocyte Abs 0.7 0.3 - 0.9 [facility] x10(3)/[facility] LABORATORY Eosinophils % 1.3 % [facility] Eosinophils Abs 0.1 0.0 - 0.4 [facility] x10(3)/[facility] LABORATORY Basophils % 0.5 % [facility] Basophils Abs 0.1 0.0 - 0.1 [facility] x10(3)/[facility] LABORATORY Immature Gran % 0.50 % [facility] Comment: Immature granulocytes(IG's)percentage an d absolute count will include metamyelocytes, myelocytes, and promyelo cytes. Blood smears from CBCs yielding IG's will be scanned manually for concor dance. If this scan disagrees with the automated IG or if promyelocytes are not ed, a manual differential will be performed. Marylin Gran Abs 0.05 (H) 0.00 - 0.04 x10(3)/[facility] LABORATORY Specimen Anatomical Collection Method Collection Time Receive d Time (Source) Location / / Volume Laterality Blood specimen 08/26/2019 11:04 0 (specimen) AM EDT 11:15 AM EDT Resulting Agency Comment Spec In Lab Otf Jose MD HEMATOLOGY ORDERABLES Performing Organization Address City/State/[place] [address] (ABNORMAL) Hemogram (08/26/2019 11:04 AM EDT) Analysis Performed At Patho logist Time Signature WBC 10.9 (H) 4.0 - 9.5 [facility] x10(3)/[facility] LABORATORY RBC 5.09 4.58 - [facility] JEFFRE[facility]ILVIO 5.54 [facility] x10(6)/[facility] LABORATORY Hemoglobin 12.7 (L) 13.7 - [facility] 16.5 gm/dL [facility] Hematocrit 42.2 40.5 - [facility] 48.5 % [facility] MCV 82.9 82.9 - [facility] 93.1 [facility] LABORATORY MCH 25.0 (L) 27.5 - [facility] 32.1 pg [facility] MCHC 30.1 (L) 32.0 - [facility] 35.7 gm/dL [facility] Platelets 310 145 - 357 [facility] x10(3)/[facility] LABORATORY RDWSD 51.0 (H) 36.0 - [facility] 45.0 [facility] LABORATORY RDWCV 16.9 (H) 11.4 - [facility] 13.8 % [facility] MPV 8.8 7.6 - 12.9 [facility] LABORATORY nRBC % Auto 0.0 % [facility]OR[facility]ORY nRBC Abs Auto 0.000 0.000 - [facility] 0.000 [facility] x10(3)/[facility] LABORATORY Specimen Anatomical Collection Method Collection Time Receive d Time (Source) Location / / Volume Laterality Blood specimen 08/26/2019 11:04 0 (specimen) AM EDT 11:15 AM EDT Resulting Agency Comment Spec In Lab Otf Jose MD HEMATOLOGY ORDERABLES Performing Organization Address City/State/[place] [address] (ABNORMAL) Comprehensive metabolic panel (non-fasting) (08/26/2019 11:04 AM EDT) P athologist Signature Glucose Lvl 91 65 - 199 [facility] mg/dL [facility] Comment: Diabetes: >=200 mg/dL plus symp toms BUN 21 (H) 10 - 20 mg/dL [facility] Creatinine 1.00 0.80 - 1.50 mg/dL [facility] Sodium 132 (L) 135 - 145 mmol/L [facility] Potassium 4.4 3.5 - 5.0 mmol/L [facility] Comment: Please note: ??Patients with WBC >100,00 0 may have falsely elevated Potassium levels. ??For accurate Potassium quantif ication in these patients send serum separator tube (gold top) for subsequent determinations. ??Contact the Clinical Chemistry Laboratory if there are any qu estions. Chloride 97 (L) 98 - 107 mmol/L [facility] CO2 24 22 - 31 mmol/L [facility] Anion Gap 11 5 - 15 mmol/L [facility] Calcium 9.4 8.5 - 10.5 mg/dL [facility] Total Protein 8.0 6.1 - 8.0 gm/dL [facility] Albumin 3.9 3.2 - 5.2 gm/dL [facility] AST 12 0 - 39 unit/L [facility] ALT 12 0 - 55 unit/L [facility] Alk Phos 84 40 - 130 unit/L [facility] Total Bilirubin 0.4 0.2 - 1.3 mg/dL [facility] Estimated GFR 77 >=60 mL/min/1.73 m?? [facility] Comment: The eGFR was calculated using the CKD-EP I equation. As with all creatinine based estimates of kidney function, eGFR values calculated with the CKD-EPI equation are not accurate in patients wi th acute kidney failure, extremes of body mass or the acutely ill. http://[employer] eGFR 89 >=60 mL/min/1.73 m?? [facility] Comment: The eGFR was calculated using the CKD-EP I equation. As with all creatinine based estimates of kidney function, eGFR values calculated with the CKD-EPI equation are not accurate in patients wi th acute kidney failure, extremes of body mass or the acutely ill. http://[employer] Specimen Anatomical Collection Method Collection Time Receive d Time (Source) Location / / Volume Laterality Blood specimen 08/26/2019 11:04 0 (specimen) AM EDT 11:15 AM EDT Resulting Agency Comment Spec In Lab Otf Jose MD CHEMISTRY ORDERABLES Performing Organization Address City/State/[place] [address] documented in this encounter Visit Diagnoses Diagnosis Primary lung adenocarcinoma, right documented in this encounter Care Teams Aircraft Captain Relationship Specialty Start Date End Date Farzaneh Winkler, NOLAN PCP - General General Internal Medicine 06/05/[address] [place] [address] documented as of this encounter
--- OUTSIDE RECORDS SUMMARY | 2022-01-19 07:37 | XMS_ITS | Encounter Summary ---
:1950 Author Organization [place] [address] Care Team Providers Name Role Phone Farzaneh Winkler APRN Primary Care Provider Encounter Details Date Type Department Care Team Description 06/27/2019 Orders Only Hematology/Oncology Phuong Faulkner, Prim pilar lung at [facility] OPERATIONS INSPECTOR adenocarcinoma, right [address] [facility], [place]ICAL [place]COLOG [place] [address] [place], [place] [phone] (Wo rk) Social History Tobacco Use Types [...] Oncology Loan Burton APRN [facility] HEMATOLOGY/[place] [address] 01/19/2022 Infusion Hematology and Oncology Canc eled (F-ARIA CANCEL) 01/25/2022 Hospital Gastroenterology Jose Clark MD [facility] [place] [address] 01/25/2022 Surgery Gastroenterology Jose Clark EGD, LOLA Yates MD ENDOSCOPY [facility] [place] [address] 01/26/2022 Office Visit Hematology and Oncology Fabian Cameron MD [facility] DR HEMATOLOGY/[place] [address] Loan Burton APRN [facility] HEMATOLOGY/[place] [address] 01/26/2022 Infusion Hematology and Oncology 02/02/2022 Office Visit Hematology and Oncology Fabian Cameron MD [facility] HEMATOLOGY/[place] [address] 02/02/2022 Infusion Hematology and Oncology 02/22/2022 Telephone Hematology and Oncology Siena Lloyd RD [facility] DRIVE [place] [address] Scheduled Procedures Name Priority Associated Diagnoses Date/Time EGD, UPPER GI ENDOSCOPY EGD with stent vs 2021 12:00 PM EDT cryotherapy. documented as of this encounter Visit Diagnoses Diagnosis Primary lung adenocarcinoma, right documented in this encounter Care Teams Bottle Blowing Machine Tender Relationship Specialty Start Date End Date Farzaneh Winkler, OPERATIONS INSPECTOR PCP - General General Internal Medicine 06/05/[address] [place] [id number] documented as of this encounter
--- OUTSIDE RECORDS SUMMARY | 2022-01-19 07:37 | XMS_ITS | Encounter Summary ---
:1950 Author Organization [facility] [place] [address] Care Team Providers Name Role Phone PetersonRamónrubio Huff APRN Primary Care Provider Encounter Details Date Type Department Care Team Description 07/08/2019 Hospital Encounter Nuclear Medicine at [place], Estrella Benavidesed Bria CampbellKimmiediann FRANCISCO (P-INCONVENIENT DATE [address] OR TIME) [facility] [place] [id number] [phone] Social History Tobacco Use Types Packs/Day Years [...] mouth daily. omeprazole (PRILOSEC) 40 Take daily, 06/19 30 capsule 3 201709/04/2019 mg Capsule, Delayed hour prior to Release(E.C.) breakfast on an empty stomach. amLODIPine (NORVASC) 10 Take 10 mg by mouth 0 10/21/2019 mg Tablet daily. documented as of this encounter Plan of Treatment Upcoming Encounters Date Type Specialty Care Team Description 01/19/2022 Office Visit Hematology and Oncology Loan Burton, NOLAN [facility] HEMATOLOGY/[place] [address] 01/19/2022 Infusion Hematology and Oncology Canc eled (F-ARIA CANCEL) 01/25/2022 Hospital Gastroenterology Jose Clark MD [facility] [place] [address] 01/25/2022 Surgery Gastroenterology Jose Clark, [facility] [place] [facility]OS[facility] [place] [address] 01/26/2022 Office Visit Hematology and Oncology Fabian Cameron MD [facility] HEMATOLOGY/[place] [address] Loan Burton, NOLAN [facility] HEMATOLOGY/[place] [address] 01/26/2022 Infusion Hematology and Oncology 02/02/2022 Office Visit Hematology and Oncology Fabian Cameron MD [facility] HEMATOLOGY/[place] [address] 02/02/2022 Infusion Hematology and Oncology 02/22/2022 Telephone Hematology and Oncology Siena Lloyd RD [facility] DRIVE [place] [address] Scheduled Procedures Name Priority Associated Diagnoses Date/Time EGD, UPPER GI ENDOSCOPY EGD with stent vs 2021 12:00 PM EDT cryotherapy. documented as of this encounter Visit Diagnoses Not on filedocumented in this encounter Care Teams Senior Internet Sales Consultant Relationship Specialty Start Date End Date Farzaneh Winkler, CUSTODIAN PCP - General General Internal Medicine 06/05/[address] [place] [id number] documented as of this encounter
--- OUTSIDE RECORDS SUMMARY | 2022-01-19 07:37 | XMS_ITS | Encounter Summary ---
:1950 Author Organization [facility] [place] [address] Care Team Providers Name Role Phone Farzaneh Winkler NOLAN Primary Care Provider Reason for Referral Consultation (Routine) - Closed Specialty Diagnoses / Procedures Referred By Contact Refer red To Contact Infectious Diseases Diagnoses Pleural empyema Sequela of Corynebacterium infection Otf Peres, Otf Peres MD MD [facility] [place] [address] [place] [address] [place] [phone] Fax: Referral ID Status Reason Start Date Expiration Date Visits V isits Requested Authorized [id number] Closed Assume 11/03/2019 11/02/2020 1 1 Subset of Care Reason for Visit Reason Comments Shortness of Breath Auth/Cert Specialty Diagnoses / Procedures Referred By Contact Refer red To Contact Diagnoses Pleural effusion, malignant Hx of pleural effusion Procedures ER IPI Admit Referral ID Status Reason Start Date Expiration Date Visits Requ ested Visits Authorized [id number] 1 1 Encounter Details Date Type Department Care Team Description 10/27/2019 - [address] Isidro Castro MD [facility] [place] [address] Pleural effusion, malignant; 11/03/2019 Encounter [facility] Otf Jose MD [facility] [place] [address] Pleural empyema; Hospital Sequela [place] [id number] Social History Tobacco Use Types Packs/Day Years [...] Sign Reading Time Taken Comments Blood Pressure 112/50 11/03/2019 11:00 AM EDT Pulse 90 11/03/2019 11:00 AM EDT Temperature 36.6 ??C (97.9 ??F) 11/03/2019 11:00 AM EDT Respiratory Rate 18 11/03/2019 11:00 AM EDT Oxygen Saturation 92% 11/03/2019 11:00 AM EDT Inhaled Oxygen Concentration - - Weight 133 kg (293 lb 4.8 oz) 11/03/2019 5:30 AM EDT Height 182.9 cm (6') 11/02/2019 7:32 PM EDT Body Mass Index 39.78 11/02/2019 7:32 PM EDT documented in this encounter Discharge Summaries Romina Tinsley PA - 11/03/2019 10:02 AM EDT Department of Thoracic Surgery - Discharge Summary Patient Name: Alin Meek Patient Age: 69 y.o. Birthdate: 1950 Admit date: 10/27/2019 Discharge date: 11/06/2019 Attending Physician: No att. providers found Discharge Diagnoses (Hospital Problems) and Secondary Diagnoses (Chronic Problems): Active Hospital Problems Diagnosis ??? Hx of pleural effusion Resolved Hospital Problems No resolved problems to display. Active Non-Hospital Problems Diagnosis ??? Lung cancer ??? Pain in joint ??? Low back pain ??? Benign essential hypertension No comments entered for problem. ??? Chronic obstructive lung disease No comments entered for problem. ??? Morbid obesity No comments entered for problem. ??? Primary malignant neoplasm of lung No comments entered for problem. ??? Hypothyroidism due to drugs ??? Primary lung adenocarcinoma, right Operations/Major Procedures: n/a Operations: n/a Case Date: Surgeon: * Surgery not found * Procedure: * No surgery found * Other Major Procedures: n/a History of Presentation: Alin Meek is a 69 y.o. male with PMHx significant for stage IIIA lung adenocarcinoma s/p R VATS pleural biopsies and pleurX catheter placement for recurrent pleural effusion with cytology showing atypical cells but no overt malingnancy and associated trapped lung. He presents to the ED with concern for clogged pleurX catheter. Prior to admission the patient was draining less fluid from his pleurx catheter and made the decision to drain his pleurx less frequently. Since then his pleurx has seemed to clog. ?? tPA administration was performed in the office with 500ccs of output. ON interview the patient does endorse some fevers/chills this past week. SOB has not been above his baseline. (Authored by Jet Browne MD) Hospital Course: Alin Meek was admitted to [facility] on 10/27/2019 via the ED. He was admitted with concerns of a clogged pleurX. Fluid culture was positive for Corynebacterium. Pleurx was placed to an atrium and he underwent a full 6 cycles of tpa/dornase with excellentresponse. Follow up CT chest showed significant improvement. He was seen by Infectious disease, a PICC line was placed and he was sent home on IV antibiotics. By hospital day # 7 he had met all criteria for discharge to home. Pain was controlled on oral medications. He had walked 5 minutes. He was tolerating a regular diet and had had a bowel movement. Vital signs: Vital Signs Temp: 36.6 ??C (97.9 ??F) Temp src: Oral Heart Rate from SpO2: 93 bpm Heart Rate: 90 Heart Rate Source: Monitor Resp: 18 BP: 112/50 MAP (NBP): 71 mmHg BP Method: Automatic BP Location: Left arm Patient Position: Lying SpO2: 92 % O2 Device: None (Room air) Admission Wt: Last Wt: Wt Readings from Last 3 Encounters: 11/03/19 133 kg (293 lb 4.8 oz) 10/21/19 (!) 138.8 kg (306 lb) 09/05/19 (!) 138.8 kg (306 lb) Pertinent physical exam findings prior to discharge: Gen: NAD, pleasant, laying in bed HEENT: normocephalic, atraumatic Neck: supple, trachea midline Card: RRR Pulm: Diminished on right, otherwise CTAB, no wheeze/ronchi/rales appreciated, non-labored breathingon room air, R PleurX to pleurovac on suction with no airleak appreciated, serous fluid draining Abd: obese, soft, NT, bowel sounds present Ext: warm, dry, no edema Neuro: A&Ox3, CN II-XII grossly intact, nonfocal, conversant Important Lab Data: Lab Results Component Value Date WBC 11.0 (H) 11/01/2019 HGB 11.5 (L) 11/01/2019 HCT 37.1 (L) 11/01/2019 MCV 77.6 (L) 11/01/2019 Lab Results Component Value Date NA 132 (L) 11/02/2019 K 4.1 11/02/2019 CL 95 (L) 11/02/2019 CO2 26 11/02/2019 Lab Results Component Value Date CREATININE 1.31 11/02/2019 Lab Results Component Value Date BUN 21 (H) 11/02/2019 No results found for: PREALBUMIN No results for input(s): PT, PTT, INR in the last 168 hours. Studies: CXR 11/01/19: Persistent right hydropneumothorax with increased opacification of the right mid to lower hemithorax likely representing a combination of increased pleural effusion with underlying atelectasis or consolidation. ?? CT Chest 10/31/19: 1. ??Right-sided pleural effusion is significantly decreased in size since June 2019 with partial reexpansion of the right lung. The effusion contains multiple foci of air consistent with continued loculation. Right-sided drainage catheter remains in place with tip in lung apex. 2. ??Rightward cardiomediastinal shift has increased in the setting of the decreased effusion. The right lung may not have reexpanded further related to scarring. 3. ??There are 2 stable right adrenal adenomas. ?? CXR 10/30/19 Redemonstrated RIGHT hydropneumothorax, with mild change in air and fluid components (probably mildly decreased fluid component). Similar nonspecific streaky LEFT basilar opacity. Persistent rightward mediastinal shift. RIGHT Pleurx drain redemonstrated. RIGHT Mediport similar, with catheter tip projecting over the upper chest. ?? CXR 10/29/2019: Right-sided hydropneumothorax, decrease in fluid component and increase in air component. New left lower lobe opacity, concerning for pneumonia. ?? CXR 10/28/2019 Decreased right-sided pleural fluid at the base, with air now present within the pleural space ?? CXR 10/27/2019 Unchanged appearance to loculated RIGHT pleural fluid collections with a slight increase in the RIGHT lung base pleural fluid. Loss in the RIGHT lung. No pneumothorax. Pleurx catheter is in unchanged location. Pending Studies and Lab Data: No current labs Discharge Conditions/Prognosis: Stable Discharge to: home Discharge Medications: Your Medications New Medications Dose Details acetaminophen 325 mg Tab Commonly known as: Tylenol Take 2 tablets by mouth every 6 hours as needed for Pain. 650 mg Quantity: 30 tablet Refills: 1 docusate sodium 100 mg Cap Commonly known as: Colace Take 1 capsule by mouth 3 times daily for 10 days. 100 mg Quantity: 20 capsule Refills: 0 polyethylene glycoL 17 gram Pwpk Commonly known as: Miralax Take 17 g by mouth 2 times daily. 17 g Quantity: 14 each Refills: 0 senna 8.6 mg Tab Commonly known as: Senokot Take 2 tablets by mouth every evening. 2 tablet Quantity: 60 tablet Refills: 11 vancomycin 1,000 mg Solr Commonly known as: VANCOCIN Inject 750 mg into the vein every 12 hours for 28 days. Per OPAT order 750 mg Quantity: 1 each Refills: 0 Continued medications, unchanged Dose Details ALBUTEROL INHL [...] by mouth daily. 25 mg Refills: 0 Symbicort 160-4.5 mcg/actuation Hfaa Inhale 2 puffs twice a day by inhalation route. Generic drug: budesonide-formoteroL Refills: 0 triamcinolone 0.1 % Crea Commonly known as: KENALOG Apply topically 2 times daily as needed. Refills: 0 UNKNOWN TO PATIENT Take 1 tablet by mouth daily. Indications: anxiety pill [facility] ordered. Don't know what it is. 1 tablet Refills: 0 Updated Allergies/ADRs: Allergies Allergen Reactions ??? Lisinopril Angioedema Lips got swollen Instructions Given to Patient at Discharge: Patient Instructions You had fibrinolytic therapy (tpa/dornase) through your pleurX catheter to help with clogging. Call if you have difficulty breathing, shortness of breath, chest pain, a fever of greater than 101 degrees, shaking chills, or if you have questions. Call if you have redness or drainage from your chest tube site. During normal business hours, Sunday- Sunday 8:00 a.m.-5:00 p.m., please call [phone] to speak to a nurse in the Thoracic Clinic. If you get an answering machine or it is after hours or on weekends or holidays please call [phone] and ask to speak to the Thoracic Physician luncheonette manager. Diet: You should follow a regular, healthy diet as tolerated. Antibiotics: You are being sent home with an intravenous (IV) catheter (PICC line), and IV antibiotics. You have been shown how to use this catheter. If you have any questions, please contact your infectious disease doctor. You will need to have your first blood draw for antibiotic level on Saturday 11/04. Smoking: If you are a smoker, please avoid smoking. If you are a smoker who needs help quitting, please call the thoracic surgery clinic at [phone]. Pain: You may have some soreness at your tube site. The goal is for you to be able to tolerate pain so you can complete your daily activities. You may take over the counter pain medication such as acetaminophen or ibuprofen. If you are not having good pain control, please call and speak to the nurse in the Thoracic Clinic or the luncheonette manager Attending Physician after hours. The PleurX catheter system is designed to [...] assist you with emptying your PleurX catheter. Please drain the pleurX catheter every day and record the amount and quality of the fluid in a log. If you have any questions or concerns regarding your PleurX catheter, please call Thoracic Surgery at [phone]. Follow up appointments: You will follow up with Dr. Jose 1 week before you finish your IV antibiotics for removal of your PleurX. You will have a chest X ray done at this time. The thoracic surgery clinic will schedule your follow up and/or surgery. Please call the thoracic clinic at [phone] to confirm/reschedule your appointment. You will also likely get an appointment/surgery confirmation inthe mail. Future Appointments and Orders Future Orders Complete By Expires CBC (with Diff) [NWY500 Custom] 11/05/2019 12/04/2019 Process Instructions: Scheduling Instructions: Comments: Questions: Comprehensive metabolic panel (non-fasting) [LAB17 Custom] 11/05/2019 (Approximate) 12/04/2019 Process Instructions: Scheduling Instructions: Comments: Questions: Vancomycin, trough [LAB39 Custom] 11/05/2019 12/04/2019 Process Instructions: Scheduling Instructions: Comments: Questions: XR Chest PA & Lateral (Generic) [[id number] Custom] 11/17/2019 (Approximate) 12/04/2019 Process Instructions: Scheduling Instructions: Questions: Where will study be performed?: [facility] Radiology Portable exam?: Reason for exam and clinical history: Pleurx in place, re-eval right sided effusion Clinical information / benito questions: Stat read required?: Date of injury if applicable: Requested Time: OPAT: Order / Recommendation for Post Discharge IV Antibiotic Management [MXY877 CPT(R)] As directed Process Instructions: If no progress note charted, please enter Clinical details in comments. Scheduling Instructions: Comments: Please Fax all results to: OPAT Program Infectious Disease Section [facility] [place] [place], [place] [address] FAX: After hours, please contact the Infectious Disease Physician luncheonette manager at . If this order was signed greater than 72 hours prior to [facility] [place] [place] discharge, please call to confirm the accuracy of this order. Line care instructions Adult PICC Flush protocol with medication infusion (SASH): Before Med: 10ml Normal Saline After Med: 10ml Normal Saline then 3 ml Heparin (10 units/ml) Flush protocol after blood withdrawal: Before: 10 ml Normal Saline Draw blood After: 20 ml Normal Saline then 3 ml Heparin (10 units/ml) Flush without med: Flush 2x's daily & prn: 10 ml Normal Saline then 3 ml heparin (10 units/ml) PICC Dressing Change weekly and PRN Please use CHG or Bio Patch Please draw weekly & PRN labs from PICC Line in addition to weekly & PRN PICC line dressing changes Catheter Occlusion Management Instill reconstituted Cathflo 2mg per instillation (based on the volume of the catheter lumen). May repeat x1 per occlusion incident. Questions: ID Diagnosis: Infected PleurX Catheter, Empyema Microorganisms being treated: Efrenbacterium Antibiotic Allergies: No Known Antibiotic Drug Allergies Antibiotic: Vancomycin 750 mg IV Every 12 Hours Special Instructions: Vancomycin Trough Goal: 10-15. Please draw Vancomyin Trough, BUN/Cr 30 minutes prior to Vancomycin dose. Start date: 10/27/2019 Anticipated stop date: 11/24/2019 Labs: Q Sunday: CBC/Diff, CMP Q Sunday Vancomycin trough Other Labs: Other: see Additional Labs: Please obtain 1st Vancomycin Trough, BUN/Cr on 11/05/2019, then change to weekly labs on Sunday based on results Last documented weight (kg): 133 kg (293 lb 4.8 oz) Last documented height (cm): 182.9 cm (6') Infectious Disease Attending: Otf Butler Referral to Home Health - at DISCHARGE [[id number] CPT(R)] As directed Process Instructions: Scheduling Instructions: Comments: DOCUMENTATION FOR VNA SERVICES PATIENT'S LOCATION: Alin Odom [address] [address] (home) Kitchen Chef's Name: patient and In discussion with the attending physician, it is certified that this patient is under their care and that they, or a Nurse Practitioner,Clinical Nurse specialist or Physician Armament Installer who is working directly with them, had a face to face encounter that meets the physician face to face encounter requirements with this patient on 11/02/19. The encounter with the patient was in whole, or in part, for the following medical condition, which is the primary reason for home health care services: Lung cancer with empyema and post VATS In discussion with the prov ider, it is certified that, based on their findings, the following serv ices are medically necessary for home health services. To provide the following care/treatments with the clinical findings supporting the need for serv ices as follows: HOME CARE ORDERS: RN ORDERS: Assess incision, vital signs, cardiopulmonary status, nutrition, hydration, elimination, meds effectiv eness and management; reinforce education re health issues Ongoing education and assistance with IV antibiotic administration and flushes; PICC line care PleurX Drainage System Placement Site: Right Thoracic Vacuum Bottle Size: 500ml Number of Bottles av ailable at discharge: 10 kits Frequency of Draining: daily and PRN It takes approximately 5 to 15 minutes to drain fluid. IMPORTANT: Do NOT drain more than 1000mL from your chest or 2000mL from your abdomen at any one time. Please contact Dr. Jose at for any questions or concerns PT ORDERS: Continue rehab for endurance, gait stability and strength with mobility and transfers. Home safety evaluation. Home exercise program if appropriate. HOME HEALTH CARE AGENCY: [facility] PHONE: [phone] FAX : [phone] Start of care: Please plan first home visit to coordinate with initial home infusion-on 11/02/19. In discussion with the attending physician, it is certified that the clinical findings support that this patient is homebound because absences from home require considerable and taxing effort due to: requires assist of another person and walker to leav e home. On IV antibiotic and has pleurex drain. Please note that any additional orders needs or changes will need to be obtained from this patient's PCP: Farzaneh Winkler, EMPLOYMENT MANAGER [address] [facility] [address] All VNA agencies which cov er the area of patient's residence hav e been rev iewed, either verbally or in writing, and patient/family hav e chosen the home health care agency noted Questions: Agency name and contact information: [facility] Patient location post discharge: Home What services are requested: Start date: Responsible MD post discharge contact info: PCP If you have any questions or concerns during normal business hours, Sunday- Sunday 8:00 a.m.-5:00 p.m., please call [phone] to speak to a nurse in the Thoracic Surgery Clinic. If you get an answering machine or it is after hours or on weekends or holidays please call [phone] and ask to speakto the Thoracic Surgeon luncheonette manager. General Instructions None Future Appointments and Orders Future Appointments and Orders Future Appointments Provider Department Dept Phone 11/18/2019 11:00 AM [facility] XRAY ROOM 1 XRay at [facility] [place] [place] Arrive at: [facility] [phone] Please go to Strip C[facility] ([place] Location). 11/18/2019 11:45 AM Otf Jose MD Thoracic Surgery at [facility] [place] [place] Arrive at: [facility] [phone] 11/18/2019 1:00 PM Barber Finch MD Infectious Disease at [facility] [place] [place] Arrive at: Strip Cutter Area [phone] Future Orders Complete By Expires CBC (with Diff) [[id number] Custom] 11/05/2019 12/04/2019 Process Instructions: Scheduling Instructions: Comments: Questions: Comprehensive metabolic panel (non-fasting) [LAB17 Custom] 11/05/2019 (Approximate) 12/04/2019 Process Instructions: Scheduling Instructions: Comments: Questions: Vancomycin, trough [LAB39 Custom] 11/05/2019 12/04/2019 Process Instructions: Scheduling Instructions: Comments: Questions: XR Chest PA & Lateral (Generic) [[id number] Custom] 11/17/2019 (Approximate) 12/04/2019 Process Instructions: Scheduling Instructions: Questions: Where will study be performed?: [facility] Radiology Portable exam?: Reason for exam and clinical history: Pleurx in place, re-eval right sided effusion Clinical information / benito questions: Stat read required?: Date of injury if applicable: Requested Time: OPAT: Order / Recommendation for Post Discharge IV Antibiotic Management [ABX209 CPT(R)] As directed Process Instructions: If no progress note charted, please enter Clinical details in comments. Scheduling Instructions: Comments: Please Fax all results to: OPAT Program Infectious Disease Section [facility] [place] [place], [place] [address] FAX: After hours, please contact the Infectious Disease Physician luncheonette manager at . If this order was signed greater than 72 hours prior to [facility] [place] [place] discharge, please call to confirm the accuracy of this order. Line care instructions Adult PICC Flush protocol with medication infusion (SASH): Before Med: 10ml Normal Saline After Med: 10ml Normal Saline then 3 ml Heparin (10 units/ml) Flush protocol after blood withdrawal: Before: 10 ml Normal Saline Draw blood After: 20 ml Normal Saline then 3 ml Heparin (10 units/ml) Flush without med: Flush 2x's daily & prn: 10 ml Normal Saline then 3 ml heparin (10 units/ml) PICC Dressing Change weekly and PRN Please use CHG or Bio Patch Please draw weekly & PRN labs from PICC Line in addition to weekly & PRN PICC line dressing changes Catheter Occlusion Management Instill reconstituted Cathflo 2mg per instillation (based on the volume of the catheter lumen). May repeat x1 per occlusion incident. Questions: ID Diagnosis: Infected PleurX Catheter, Empyema Microorganisms being treated: Corynebacterium Antibiotic Allergies: No Known Antibiotic Drug Allergies Antibiotic: Vancomycin 750 mg IV Every 12 Hours Special Instructions: Vancomycin Trough Goal: 10-15. Please draw Vancomyin Trough, BUN/Cr 30 minutes prior to Vancomycin dose. Start date: 10/27/2019 Anticipated stop date: 11/24/2019 Labs: Q Sunday: CBC/Diff, CMP Q Sunday Vancomycin trough Other Labs: Other: see Additional Labs: Please obtain 1st Vancomycin Trough, BUN/Cr on 11/05/2019, then change to weekly labs on Sunday based on results Last documented weight (kg): 133 kg (293 lb 4.8 oz) Last documented height (cm): 182.9 cm (6') Infectious Disease Attending: Otf Butler Referral to Home Health - at DISCHARGE [[id number] CPT(R)] As directed Process Instructions: Scheduling Instructions: Comments: DOCUMENTATION FOR VNA SERVICES PATIENT'S LOCATION: Alin Meek [address] [facility] [address] (home) Kitchen Chef's Name: patient and In discussion with the attending physician, it is certified that this patient is under their care and that they, or a Nurse Practitioner,Clinical Nurse specialist or Physician Armament Installer who is working directly with them, had a face to face encounter that meets the physician face to face encounter requirements with this patient on 11/02/19. The encounter with the patient was in whole, or in part, for the following medical condition, which is the primary reason for home health care services: Lung cancer with empyema and post VATS In discussion with the prov ider, it is certified that, based on their findings, the following serv ices are medically necessary for home health services. To provide the following care/treatments with the clinical findings supporting the need for serv ices as follows: HOME CARE ORDERS: RN ORDERS: Assess incision, vital signs, cardiopulmonary status, nutrition, hydration, elimination, meds effectiv eness and management; reinforce education re health issues Ongoing education and assistance with IV antibiotic administration and flushes; PICC line care PleurX Drainage System Placement Site: Right Thoracic Vacuum Bottle Size: 500ml Number of Bottles av ailable at discharge: 10 kits Frequency of Draining: daily and PRN It takes approximately 5 to 15 minutes to drain fluid. IMPORTANT: Do NOT drain more than 1000mL from your chest or 2000mL from your abdomen at any one time. Please contact Dr. Jose at [phone] for any questions or concerns PT ORDERS: Continue rehab for endurance, gait stability and strength with mobility and transfers. Home safety evaluation. Home exercise program if appropriate. HOME HEALTH CARE AGENCY: [facility] PHONE: [phone] FAX : [phone] Start of care: Please plan first home visit to coordinate with initial home infusion-on 11/02/19. In discussion with the attending physician, it is certified that the clinical findings support that this patient is homebound because absences from home require considerable and taxing effort due to: requires assist of another person and walker to leav e home. On IV antibiotic and has pleurex drain. Please note that any additional orders needs or changes will need to be obtained from this patient's PCP: Farzaneh Winkler APRN [address] [facility] [place] [address] All VNA agencies which cov er the area of patient's residence hav e been rev iewed, either verbally or in writing, and patient/family hav e chosen the home health care agency noted Questions: Agency name and contact information: [facility] Patient location post discharge: Home What services are requested: Start date: Responsible MD post discharge contact info: PCP Provider Contact Information: Primary Care Provider: Farzaneh Winkler APRN [phone] Discharge References/Attachments: Discharge References/Attachments None For questions regarding this document or issues relating to this hospitalization on the Thoracic Surgery Service, please contact Dr. Jose's office at . Signed: TIARA Clarke 11/06/2019 CC: PCP: Farzaneh Winkler APRN Referring: No referring provider defined for this encounter. documented in this encounter Discharge Instructions Patient InstructionsPaproRomina mcneil PA - 11/03/2019 8:19 AM EDT You had fibrinolytic therapy (tpa/dornase) through your pleurX catheter to help with clogging. Call if you have difficulty breathing, shortness of breath, chest pain, a fever of greater than 101 degrees, shaking chills, or if you have questions. Call if you have redness or drainage from your chest tube site. During normal business hours, Sunday- Sunday 8:00 a.m.-5:00 p.m., please call [phone] to speak to a nurse in the Thoracic Clinic. If you get an answering machine or it is after hours or on weekends or holidays please call [phone] and ask to speak to the Thoracic Physician luncheonette manager. Diet: You should follow a regular, healthy diet as tolerated. Antibiotics: You are being sent home with an intravenous (IV) catheter (PICC line), and IV antibiotics. You have been shown how to use this catheter. If you have any questions, please contact your infectious disease doctor. You will need to have your first blood draw for antibiotic level on Saturday 11/04. Smoking: If you are a smoker, please avoid smoking. If you are a smoker who needs help quitting, please call the thoracic surgery clinic at [phone]. Pain: You may have some soreness at your tube site. The goal is for you to be able to tolerate pain so you can complete your daily activities. You may take over the counter pain medication such as acetaminophen or ibuprofen. If you are not having good pain control, please call and speak to the nurse in the Thoracic Clinic or the luncheonette manager Attending Physician after hours. The PleurX catheter system is designed to [...] assist you with emptying your PleurX catheter. Please drain the pleurX catheter every day and record the amount and quality of the fluid in a log. If you have any questions or concerns regarding your PleurX catheter, please call Thoracic Surgery at [phone]. Follow up appointments: You will follow up with Dr. Jose 1 week before you finish your IV antibiotics for removal of your PleurX. You will have a chest X ray done at this time. The thoracic surgery clinic will schedule your follow up and/or surgery. Please call the thoracic clinic at [phone] to confirm/reschedule your appointment. You will also likely get an appointment/surgery confirmation inthe mail. Future Appointments and Orders Future Orders Complete By Expires CBC (with Diff) [NLI219 Custom] 11/05/2019 12/04/2019 Process Instructions: Scheduling Instructions: Comments: Questions: Comprehensive metabolic panel (non-fasting) [LAB17 Custom] 11/05/2019 (Approximate) 12/04/2019 Process Instructions: Scheduling Instructions: Comments: Questions: Vancomycin, trough [LAB39 Custom] 11/05/2019 12/04/2019 Process Instructions: Scheduling Instructions: Comments: Questions: XR Chest PA & Lateral (Generic) [[id number] Custom] 11/17/2019 (Approximate) 12/04/2019 Process Instructions: Scheduling Instructions: Questions: Where will study be performed?: [facility] Radiology Portable exam?: Reason for exam and clinical history: Pleurx in place, re-eval right sided effusion Clinical information / benito questions: Stat read required?: Date of injury if applicable: Requested Time: OPAT: Order / Recommendation for Post Discharge IV Antibiotic Management [CMY161 CPT(R)] As directed Process Instructions: If no progress note charted, please enter Clinical details in comments. Scheduling Instructions: Comments: Please Fax all results to: OPAT Program Infectious Disease Section [facility] [place] [place], [place] [id number] FAX: After hours, please contact the Infectious Disease Physician luncheonette manager at . If this order was signed greater than 72 hours prior to [facility] [place] [place] discharge, please call to confirm the accuracy of this order. Line care instructions Adult PICC Flush protocol with medication infusion (SASH): Before Med: 10ml Normal Saline After Med: 10ml Normal Saline then 3 ml Heparin (10 units/ml) Flush protocol after blood withdrawal: Before: 10 ml Normal Saline Draw blood After: 20 ml Normal Saline then 3 ml Heparin (10 units/ml) Flush without med: Flush 2x's daily & prn: 10 ml Normal Saline then 3 ml heparin (10 units/ml) PICC Dressing Change weekly and PRN Please use CHG or Bio Patch Please draw weekly & PRN labs from PICC Line in addition to weekly & PRN PICC line dressing changes Catheter Occlusion Management Instill reconstituted Cathflo 2mg per instillation (based on the volume of the catheter lumen). May repeat x1 per occlusion incident. Questions: ID Diagnosis: Infected PleurX Catheter, Empyema Microorganisms being treated: Corynebacterium Antibiotic Allergies: No Known Antibiotic Drug Allergies Antibiotic: Vancomycin 750 mg IV Every 12 Hours Special Instructions: Vancomycin Trough Goal: 10-15. Please draw Vancomyin Trough, BUN/Cr 30 minutes prior to Vancomycin dose. Start date: 10/27/2019 Anticipated stop date: 11/24/2019 Labs: Q Sunday: CBC/Diff, CMP Q Sunday Vancomycin trough Other Labs: Other: see Additional Labs: Please obtain 1st Vancomycin Trough, BUN/Cr on 11/05/2019, then change to weekly labs on Sunday based on results Last documented weight (kg): 133 kg (293 lb 4.8 oz) Last documented height (cm): 182.9 cm (6') Infectious Disease Attending: Otf Butler Referral to Home Health - at DISCHARGE [QDE2941 CPT(R)] As directed Process Instructions: Scheduling Instructions: Comments: DOCUMENTATION FOR VNA SERVICES PATIENT'S LOCATION: Alin Meek [address] [facility] [address] (home) Kitchen Chef's Name: patient and In discussion with the attending physician, it is certified that this patient is under their care and that they, or a Nurse Practitioner,Clinical Nurse specialist or Physician Armament Installer who is working directly with them, had a face to face encounter that meets the physician face to face encounter requirements with this patient on 11/02/19. The encounter with the patient was in whole, or in part, for the following medical condition, which is the primary reason for home health care services: Lung cancer with empyema and post VATS In discussion with the prov ider, it is certified that, based on their findings, the following serv ices are medically necessary for home health services. To provide the following care/treatments with the clinical findings supporting the need for serv ices as follows: HOME CARE ORDERS: RN ORDERS: Assess incision, vital signs, cardiopulmonary status, nutrition, hydration, elimination, meds effectiv eness and management; reinforce education re health issues Ongoing education and assistance with IV antibiotic administration and flushes; PICC line care PleurX Drainage System Placement Site: Right Thoracic Vacuum Bottle Size: 500ml Number of Bottles av ailable at discharge: 10 kits Frequency of Draining: daily and PRN It takes approximately 5 to 15 minutes to drain fluid. IMPORTANT: Do NOT drain more than 1000mL from your chest or 2000mL from your abdomen at any one time. Please contact Dr. Jose at [phone] for any questions or concerns PT ORDERS: Continue rehab for endurance, gait stability and strength with mobility and transfers. Home safety evaluation. Home exercise program if appropriate. HOME HEALTH CARE AGENCY: [facility] PHONE: [phone] FAX : [phone] Start of care: Please plan first home visit to coordinate with initial home infusion-on 11/02/19. In discussion with the attending physician, it is certified that the clinical findings support that this patient is homebound because absences from home require considerable and taxing effort due to: requires assist of another person and walker to leav e home. On IV antibiotic and has pleurex drain. Please note that any additional orders needs or changes will need to be obtained from this patient's PCP: Farzaneh Winkler, EMPLOYMENT MANAGER [address] [place] [id number] All A agencies which cov er the area of patient's residence hav e been rev iewed, either verbally or in writing, and patient/family hav e chosen the home health care agency noted Questions: Agency name and contact information: [facility] Patient location post discharge: Home What services are requested: Start date: Responsible MD post discharge contact info: PCP If you have any questions or concerns during normal business hours, Sunday- Sunday 8:00 a.m.-5:00 p.m., please call [phone] to speak to a nurse in the Thoracic Surgery Clinic. If you get an answering machine or it is after hours or on weekends or holidays please call [phone] and ask to speakto the Thoracic Surgeon luncheonette manager. documented in this encounter Medications at Time [...] 0.1 % Cream times daily as needed. vancomycin (VANCOCIN) Inject 750 mg into 1 each 0 201911/06/2019 1,000 mg Recon Soln the vein every 12 hours for 28 days. Per OPAT order docusate sodium (Colace) Take 1 capsule by 20 capsule 0 10/1611/13/2019 100 mg Capsule mouth 3 times daily for 10 days. folic acid (Folvite) 1 Take 1 mg by mouth 0 06/09/2021 mg Tablet daily. b complex vitamins Take 1 capsule by 0 12/29/2021 Capsule mouth daily. documented as of this encounter Progress Notes Cheyenne Downs RN - 11/03/2019 1:40 PM EDT Patient Name: Alin Meek Patient Age: 69 y.o. Birthdate: 1950 Admit date: 10/27/2019 Attending Physician: Otf Jose MD Pierre was discharged today at approximately 1300. His was allowed to the floor, they watched an informative video related to his medication administration once he goes home. His VNA and medication delivery have been set up to begin at 1700 tonight. AVS was provided and explained, questions were enc ouraged and answered. Both pt and his expressed understanding of all information provided. He was brought down to his wifes vehicle via wheelchair with staff assist of one. Betty Woods RN - 11/03/2019 12:45 PM EDT OFFICE OF CARE MANAGEMENT Juvenile Court Liaison DISCHARGE NOTE: Discussed Plan for discharge with primary team and pt's family. Plan for Discharge: Home with VNA and [facility] for ABX supple's Homecare services provided by: [facility] PHONE: [phone] FAX: [phone] [facility]: Paramjit: 08/01 RN & [facility] Contact: Maria Luisa Carcamo or Tor Lau Tuttle Delivery confirmed for 5pm today and VNA also confirmed for 5pm visit today . and have Video to review . They have done ABX infusion at home before and are comfortable with the discharge plan. Homecare orders have been pended for MD to review and include in discharge summary. Pt is medically ready for discharge home with services outlined above. Due to current public health concerns, I discussed Medicare Discharge Rights with verbally deliveredon 11/03/19 @ 11am to Pierre . Patient verbalizes understanding of right to appeal this discharge if feeling not medically ready. Offered a copy of this letter. Juvenile Court Liaison to follow until discharged if any new needs arise. Betty Woods RNCM Pager: # [phone] Kari Garcia MD - 11/03/2019 9:12 AM EDT ID OPAT INTAKE __ This note is delineating a preliminary antibiotic plan to facilitate discharge planning and is NOT an official OPAT order. Final plans and acceptance into the OPAT program depend on a comprehensive discharge plan. __ Diagnosis: Infected pluerX catheter Empyema Organism: Corynebacterium Antibiotic(s): Vancomycin 750mg IV Q12H Start date: 10/27/2019 Anticipated end date: 11/24/2019 Desired labs: Weekly CBC CMP Vancomycin trough (target 10-15). Please obtain first set of labs on 11/04 am. Then can change to weekly labs on Sunday based on results. Desired timing of first appointment: Week of November 17 2019 Other specialty appointments to coordinate with? [ xx ] yes: which specialty? Thoracic surgery [ ] no Imaging needed? [ ] yes: if so, what study? [ ] no Timing of imaging desired? [ ] same day as ID appointment [ ] same day as other appointment? What specialty? Weekly infusion at [facility] [place] [place]? [ ] yes: if so, please indicate day of week: [ ] no Robb Cardenas RN - 11/02/2019 10:09 AM EDT Office of Care Management mechanical apprentice Robb Cardenas (pager [phone]) Patient: Alin Meek : 1950 (69 y.o.) Home: [facility] [address] LOS: 6 days Olive from Cardiothoracic Surgery 5015 that patient is medically ready for discharge home today. According to 10/31/19 Care Management discharge plans, the [facility] ([facility]) needs to be involved to confirm financial coverage of home IV antibiotics and they are not available on the weekend; and [facility] is scheduled to teach patient and via video ed system on . Advised team that I am not able to set up home care needs today, and that patient can be safely discharged tomorrow Thursday 11/02 with all home care needs in place. Patient Active Problem List Diagnosis Code ??? 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 Benign essential hypertension I10 ??? Chronic obstructive lung disease J44.9 ??? Morbid obesity E66.01 ??? Primary malignant neoplasm of lung C34.90 ??? Pain in joint M25.50 ??? Low back pain M54.5 ??? Lung cancer C34.90 ??? Hx of pleural effusion Z87.09 Care Management will continue to monitor progress, follow for continuity of care, and assist with discharge planning. Lula Nichole PA - 11/02/2019 8:[address] [facility] Department of Thoracic Surgery Inpatient Progress Note Patient Name: Alin Meek Patient : 1950 Patient Patient Location: [address] [place] [address] Attending Surgeon: SOLO MCCABE DAVID J ID: Alin Meek is a 69 y.o. male with stage IIIA lung adenocarcinoma s/p R VATS pleural bx andpleurX placement for recurrent right sided effusion who is admitted with concerns of clogged pleurX.Undergoing fibrinolytic therapy. 24 Hour Events / Subjective: - PICC placed for IV abx upon d/c - Pleural cx with corynebacterium growing, remains afebrile, ID following, critical vanc trough, vanc decreased to 1g bid. - NAEON Vitals: Temp: [36.6 ??C (97.9 ??F)-37 ??C (98.6 ??F)] Heart Rate: [77-84] Resp: [14-18] BP: (98-118)/(42-52) SpO2: [93 %-95 %] Heart Rate from SpO2: [74 bpm-87 bpm] Wt & BMI By Encounter Date ED to Hosp-Admission (Current) from 10/27/[address] [place] [address] Office Visit from 10/21/2019 in Thoracic Surgery at [facility] [place] [place] Weight 133 kg (293 lb 4.8 oz) 1 11/03/2019 0530 (!) 138.8 kg (306 lb) 1 10/21/2019 1035 BMI 40 1 11/02/2019 1932 -- Physical Exam: Gen: NAD, pleasant, sitting up on side of bed HEENT: normocephalic, atraumatic Neck: supple, trachea midline Card: Regular rate via tele Pulm: Non-labored breathing on room air, R PleurX to -20mmHg suction with no airleak appreciated, serous fluid draining Abd: obese, soft, NT, bowel sounds present Ext: warm, dry, no edema Neuro: A&Ox3, CN II-XII grossly intact, nonfocal, conversant I/O: I/O last 3 completed shifts: In: 1310 [P.O.:860; IV Piggyback:450] Out: 2695 [Urine:2625; Other:70] R PleurX Chest tube: 50cc in 24 hours Labs: Recent Results (from the past 72 hour(s)) Body Fluid Culture, Aerobic Result Value Ref Range Body Fluid Culture No growth to date. Gram Stain Cytocentrifuge Gram Stain performed Neutrophils No microorganisms seen. Anaerobic Culture Result Value Ref Range Anaerobic Culture No anaerobic organisms isolated to date Vancomycin, trough Result Value Ref Range Vanc Trough 18.1 mg/L Basic Metabolic Panel (non-fasting) Result Value Ref Range Glucose Lvl 120 65 - 199 mg/dL BUN 17 10 - 20 mg/dL Creatinine 1.11 0.80 - 1.50 mg/dL Sodium 131 (L) 135 - 145 mmol/L Potassium 4.2 3.5 - 5.0 mmol/L Chloride 97 (L) 98 - 107 mmol/L CO2 24 22 - 31 mmol/L Anion Gap 10 5 - 15 mmol/L Calcium 8.8 8.5 - 10.5 mg/dL eGFR 68 >=60 mL/min/1.73 m?? eGFR 79 >=60 mL/min/1.73 m?? Hemogram Result Value Ref Range WBC 11.0 (H) 4.0 - 9.5 x10(3)/mcL RBC 4.78 4.58 - 5.54 x10(6)/mcL Hemoglobin 11.5 (L) 13.7 - 16.5 gm/dL Hematocrit 37.1 (L) 40.5 - 48.5 % MCV 77.6 (L) 82.9 - 93.1 fL MCH 24.1 (L) 27.5 - 32.1 pg MCHC 31.0 (L) 32.0 - 35.7 gm/dL Platelets 405 (H) 145 - 357 x10(3)/mcL RDWSD 47.3 (H) 36.0 - 45.0 fL RDWCV 16.7 (H) 11.4 - 13.8 % MPV 8.4 7.6 - 12.9 fL nRBC % Auto 0.0 % nRBC Abs Auto 0.000 0.000 - 0.000 x10(3)/mcL Differential, Automated Result Value Ref Range Neutrophils % 81.6 % Neutr Abs (ANC) 8.99 (H) 1.70 - 6.10 x10(3)/mcL Lymphocytes % 7.2 % Lymphocytes Abs 0.8 (L) 0.9 - 3.2 x10(3)/mcL Monocytes % 6.8 % Monocyte Abs 0.8 0.3 - 0.9 x10(3)/mcL Eosinophils % 3.1 % Eosinophils Abs 0.3 0.0 - 0.4 x10(3)/mcL Basophils % 0.6 % Basophils Abs 0.1 0.0 - 0.1 x10(3)/mcL Immature Gran % 0.70 % Marylin Gran Abs 0.08 (H) 0.00 - 0.04 x10(3)/mcL Vancomycin, trough Result Value Ref Range Vanc Trough 23.9 (CRIT) mg/L Basic Metabolic Panel (non-fasting) Result Value Ref Range Glucose Lvl 119 65 - 199 mg/dL BUN 21 (H) 10 - 20 mg/dL Creatinine 1.31 0.80 - 1.50 mg/dL Sodium 132 (L) 135 - 145 mmol/L Potassium 4.1 3.5 - 5.0 mmol/L Chloride 95 (L) 98 - 107 mmol/L CO2 26 22 - 31 mmol/L Anion Gap 11 5 - 15 mmol/L Calcium 8.7 8.5 - 10.5 mg/dL eGFR 56 (L) >=60 mL/min/1.73 m?? eGFR 64 >=60 mL/min/1.73 m?? Vancomycin, trough Result Value Ref Range Vanc Trough 23.0 (CRIT) mg/L Diagnostics: CXR 11/01/19: Persistent right hydropneumothorax with increased opacification of the right mid to lower hemithorax likely representing a combination of increased pleural effusion with underlying atelectasis or consolidation. CT Chest 10/31/19: 1. Right-sided pleural effusion is significantly decreased in size since June 2019 with partial reexpansion of the right lung. The effusion contains multiple foci of air consistent with continued loculation. Right-sided drainage catheter remains in place with tip in lung apex. 2. Rightward cardiomediastinal shift has increased in the setting of the decreased effusion. The right lung may not have reexpanded further related to scarring. 3. There are 2 stable right adrenal adenomas. CXR 10/30/19 Redemonstrated RIGHT hydropneumothorax, with mild change in air and fluid components (probably mildly decreased fluid component). Similar nonspecific streaky LEFT basilar opacity. Persistent rightward mediastinal shift. RIGHT Pleurx drain redemonstrated. RIGHT Mediport similar, with catheter tip projecting over the upper chest. CXR 10/29/2019: Right-sided hydropneumothorax, decrease in fluid component and increase in air component. New left lower lobe opacity, concerning for pneumonia. CXR 10/28/2019 Decreased right-sided pleural fluid at the base, with air now present within the pleural space CXR 10/27/2019 Unchanged appearance to loculated RIGHT pleural fluid collections with a slight increase in the RIGHT lung base pleural fluid. Loss in the RIGHT lung. No pneumothorax. Pleurx catheter is in unchanged location. ?? Micro: Body Fluid Culture, Aerobic [[id number]] (Abnormal) Collected: 10/28/19 0900 Lab Status: Preliminary result Specimen: Pleural Fluid Updated: 10/31/19 1238 Body Fluid Culture One colony of Corynebacterium species probable contaminantAbnormal Gram Stain --Abnormal Cytocentrifuge Gram Stain performed No Neutrophils seen. Rare Gram Positive Rods Assessment: Alin Meek is a 69 y.o. male with stage IIIA lung adenocarcinoma and recurrent effusion s/p Pleurx placement. Completed x6 cycles of tpa/dornase o/n 10/29. CT chest with decreased effusion and partially re-expanded right lung, no surgical intervention recommended at this time. Pleural culture growing corynebacterium with ID following and recommending 4 wks of IV vanc and replacement of pleurx catheter. Plan to dc likely tomorrow with IV abx x4 weeks with removal of pleurx catheter in 3 weeks. Re-assess infection after 4 weeks of IV abx. ID following, critical vanc trough with ID/Pharm decreasing abx to 1g. Will re-assess vanc trough at NE for final home abx recommendations. Plan: NEURO: Tylenol for pain CV: home HTN meds, holding BLADE inhibitor PULM: Continue home inhalers, IS/cough/deep breathe/OOB/ambulate. Continue right pleurx to suction, monitor output. GI: Diabetic diet. senna/colace, miralax, dulcolax supp PRN : monitor uop, voiding FEK: Lytes PRN ID: IV Vanc per pharmacy, ID following. Recheck vanc trough HEME: SQH ENDO: LINDA PROPHYLAXIS: SQH DISPO: 4W, inpatient floor status, plan for likely d/c tomorrow TIARA Cat 11/03/2019 Thoracic Surgery Service Pager [phone] Diana Reddy RN - 11/02/2019 5:14 AM EDT Fantasma had a quite night. AxO.RA. Denies any pain. Chest tube to suction. PICC line placed yesterday. On IV ABX. Ambulates with one assist. Vanco level 11/01 @ 8:30. Continue monitor pt. Lula Nichole PA - 11/01/2019 10:[address] [facility] Department of Thoracic Surgery Inpatient Progress Note Patient Name: Alin Meek Patient : 1950 Patient Patient Location: 410/410-B Attending Surgeon: SOLO MCCABE DAVID J ID: Alin Meek is a 69 y.o. male with stage IIIA lung adenocarcinoma s/p R VATS pleural bx andpleurX placement for recurrent right sided effusion who is admitted with concerns of clogged pleurX.Undergoing fibrinolytic therapy. 24 Hour Events / Subjective: - Completed x6 cycles tpa/dornase 10/29 o/n. CT chest completed with decreased right pleural effusionnoted and partial re-expansion of right lung as well as rightward mediastinal shift. - Pleural cx with GPR growing, final results pending - Improving leukocytosis to 11, from 12.3, afebrile. - ID recommendation appreciated, see note Vitals: Temp: [36.4 ??C (97.5 ??F)-36.8 ??C (98.2 ??F)] Heart Rate: [82-89] Resp: [15-18] BP: (104-126)/(52-79) SpO2: [92 %-95 %] Heart Rate from SpO2: [82 bpm-109 bpm] Wt & BMI By Encounter Date ED to Hosp-Admission (Current) from 10/27/[address] [place] [address] Office Visit from 10/21/2019 in Thoracic Surgery at [facility] [place] [place] Weight 134.8 kg (297 lb 3.2 oz) 1 10/31/2019 0453 (!) 138.8 kg (306 lb) 1 10/21/2019 1035 Physical Exam: Gen: NAD, pleasant, sitting up on side of bed HEENT: normocephalic, atraumatic Neck: supple, trachea midline Card: RRR Pulm: Diminished on right, otherwise CTAB, no wheeze/ronchi/rales appreciated, non-labored breathingon room air, R PleurX to pleurovac on suction with no airleak appreciated, serous fluid draining Abd: obese, soft, NT, bowel sounds present Ext: warm, dry, no edema Neuro: A&Ox3, CN II-XII grossly intact, nonfocal, conversant I/O: I/O last 3 completed shifts: In: 1930 [P.O.:288.8; I.V.:268; IV Piggyback:1374.2] Out: 4234 [Urine:3175; Other:1060] R PleurX Chest tube: 610cc in 24 hours from 1.2L Labs: Recent Results (from the past 72 hour(s)) Vancomycin, trough Result Value Ref Range Vanc Trough 13.6 mg/L Basic Metabolic Panel (non-fasting) Result Value Ref Range Glucose Lvl 114 65 - 199 mg/dL BUN 14 10 - 20 mg/dL Creatinine 0.90 0.80 - 1.50 mg/dL Sodium 131 (L) 135 - 145 mmol/L Potassium 4.4 3.5 - 5.0 mmol/L Chloride 98 98 - 107 mmol/L CO2 23 22 - 31 mmol/L Anion Gap 10 5 - 15 mmol/L Calcium 8.7 8.5 - 10.5 mg/dL eGFR 87 >=60 mL/min/1.73 m?? eGFR 101 >=60 mL/min/1.73 m?? Hemogram Result Value Ref Range WBC 9.7 (H) 4.0 - 9.5 x10(3)/mcL RBC 4.35 (L) 4.58 - 5.54 x10(6)/mcL Hemoglobin 10.4 (L) 13.7 - 16.5 gm/dL Hematocrit 34.1 (L) 40.5 - 48.5 % MCV 78.4 (L) 82.9 - 93.1 fL MCH 23.9 (L) 27.5 - 32.1 pg MCHC 30.5 (L) 32.0 - 35.7 gm/dL Platelets 379 (H) 145 - 357 x10(3)/mcL RDWSD 47.5 (H) 36.0 - 45.0 fL RDWCV 16.6 (H) 11.4 - 13.8 % MPV 8.6 7.6 - 12.9 fL nRBC % Auto 0.0 % nRBC Abs Auto 0.000 0.000 - 0.000 x10(3)/mcL Differential, Automated Result Value Ref Range Neutrophils % 78.8 % Neutr Abs (ANC) 7.66 (H) 1.70 - 6.10 x10(3)/mcL Lymphocytes % 8.6 % Lymphocytes Abs 0.8 (L) 0.9 - 3.2 x10(3)/mcL Monocytes % 7.6 % Monocyte Abs 0.7 0.3 - 0.9 x10(3)/mcL Eosinophils % 3.8 % Eosinophils Abs 0.4 0.0 - 0.4 x10(3)/mcL Basophils % 0.6 % Basophils Abs 0.1 0.0 - 0.1 x10(3)/mcL Immature Gran % 0.60 % Marylin Gran Abs 0.06 (H) 0.00 - 0.04 x10(3)/mcL Hemogram Result Value Ref Range WBC 12.3 (H) 4.0 - 9.5 x10(3)/mcL RBC 5.07 4.58 - 5.54 x10(6)/mcL Hemoglobin 12.1 (L) 13.7 - 16.5 gm/dL Hematocrit 39.6 (L) 40.5 - 48.5 % MCV 78.1 (L) 82.9 - 93.1 fL MCH 23.9 (L) 27.5 - 32.1 pg MCHC 30.6 (L) 32.0 - 35.7 gm/dL Platelets 412 (H) 145 - 357 x10(3)/mcL RDWSD 47.7 (H) 36.0 - 45.0 fL RDWCV 16.9 (H) 11.4 - 13.8 % MPV 8.4 7.6 - 12.9 fL nRBC % Auto 0.0 % nRBC Abs Auto 0.000 0.000 - 0.000 x10(3)/mcL Basic Metabolic Panel (non-fasting) Result Value Ref Range Glucose Lvl 125 65 - 199 mg/dL BUN 16 10 - 20 mg/dL Creatinine 1.06 0.80 - 1.50 mg/dL Sodium 132 (L) 135 - 145 mmol/L Potassium 4.6 3.5 - 5.0 mmol/L Chloride 96 (L) 98 - 107 mmol/L CO2 23 22 - 31 mmol/L Anion Gap 13 5 - 15 mmol/L Calcium 8.9 8.5 - 10.5 mg/dL eGFR 72 >=60 mL/min/1.73 m?? eGFR 83 >=60 mL/min/1.73 m?? Vancomycin, trough Result Value Ref Range Vanc Trough 24.8 (CRIT) mg/L Body Fluid Culture, Aerobic Result Value Ref Range Body Fluid Culture No growth to date. Gram Stain Cytocentrifuge Gram Stain performed Neutrophils No microorganisms seen. Vancomycin, trough Result Value Ref Range Vanc Trough 18.1 mg/L Basic Metabolic Panel (non-fasting) Result Value Ref Range Glucose Lvl 120 65 - 199 mg/dL BUN 17 10 - 20 mg/dL Creatinine 1.11 0.80 - 1.50 mg/dL Sodium 131 (L) 135 - 145 mmol/L Potassium 4.2 3.5 - 5.0 mmol/L Chloride 97 (L) 98 - 107 mmol/L CO2 24 22 - 31 mmol/L Anion Gap 10 5 - 15 mmol/L Calcium 8.8 8.5 - 10.5 mg/dL eGFR 68 >=60 mL/min/1.73 m?? eGFR 79 >=60 mL/min/1.73 m?? Hemogram Result Value Ref Range WBC 11.0 (H) 4.0 - 9.5 x10(3)/mcL RBC 4.78 4.58 - 5.54 x10(6)/mcL Hemoglobin 11.5 (L) 13.7 - 16.5 gm/dL Hematocrit 37.1 (L) 40.5 - 48.5 % MCV 77.6 (L) 82.9 - 93.1 fL MCH 24.1 (L) 27.5 - 32.1 pg MCHC 31.0 (L) 32.0 - 35.7 gm/dL Platelets 405 (H) 145 - 357 x10(3)/mcL RDWSD 47.3 (H) 36.0 - 45.0 fL RDWCV 16.7 (H) 11.4 - 13.8 % MPV 8.4 7.6 - 12.9 fL nRBC % Auto 0.0 % nRBC Abs Auto 0.000 0.000 - 0.000 x10(3)/mcL Differential, Automated Result Value Ref Range Neutrophils % 81.6 % Neutr Abs (ANC) 8.99 (H) 1.70 - 6.10 x10(3)/mcL Lymphocytes % 7.2 % Lymphocytes Abs 0.8 (L) 0.9 - 3.2 x10(3)/mcL Monocytes % 6.8 % Monocyte Abs 0.8 0.3 - 0.9 x10(3)/mcL Eosinophils % 3.1 % Eosinophils Abs 0.3 0.0 - 0.4 x10(3)/mcL Basophils % 0.6 % Basophils Abs 0.1 0.0 - 0.1 x10(3)/mcL Immature Gran % 0.70 % Marylin Gran Abs 0.08 (H) 0.00 - 0.04 x10(3)/mcL Diagnostics: CXR 11/01/19: Persistent right hydropneumothorax with increased opacification of the right mid to lower hemithorax likely representing a combination of increased pleural effusion with underlying atelectasis or consolidation. CT Chest 10/31/19: 1. Right-sided pleural effusion is significantly decreased in size since June 2019 with partial reexpansion of the right lung. The effusion contains multiple foci of air consistent with continued loculation. Right-sided drainage catheter remains in place with tip in lung apex. 2. Rightward cardiomediastinal shift has increased in the setting of the decreased effusion. The right lung may not have reexpanded further related to scarring. 3. There are 2 stable right adrenal adenomas. CXR 10/30/19 Redemonstrated RIGHT hydropneumothorax, with mild change in air and fluid components (probably mildly decreased fluid component). Similar nonspecific streaky LEFT basilar opacity. Persistent rightward mediastinal shift. RIGHT Pleurx drain redemonstrated. RIGHT Mediport similar, with catheter tip projecting over the upper chest. CXR 10/29/2019: Right-sided hydropneumothorax, decrease in fluid component and increase in air component. New left lower lobe opacity, concerning for pneumonia. CXR 10/28/2019 Decreased right-sided pleural fluid at the base, with air now present within the pleural space CXR 10/27/2019 Unchanged appearance to loculated RIGHT pleural fluid collections with a slight increase in the RIGHT lung base pleural fluid. Loss in the RIGHT lung. No pneumothorax. Pleurx catheter is in unchanged location. ?? Micro: Body Fluid Culture, Aerobic [[id number]] (Abnormal) Collected: 10/28/19 0900 Lab Status: Preliminary result Specimen: Pleural Fluid Updated: 10/31/19 1238 Body Fluid Culture One colony of Corynebacterium species probable contaminantAbnormal Gram Stain --Abnormal Cytocentrifuge Gram Stain performed No Neutrophils seen. Rare Gram Positive Rods Assessment: Alin Meek is a 69 y.o. male with stage IIIA lung adenocarcinoma and recurrent effusion s/p Pleurx placement. Completed x6 cycles of tpa/dornase o/n 10/29. CT chest with decreased effusion and partially re-expanded right lung, no surgical intervention recommended at this time. Pleural culture growing corynebacterium with ID following and recommending 4 wks of IV vanc and replacement of pleurx catheter. Plan to dc likely tomorrow with IV abx x4 weeks with removal of pleurx catheter in 3 weeks. Re-assess infection after 4 weeks of IV abx. OPAT orders signed by ID who will be following labs o/p. Chest tube with 610 cc serous output and no airleak. Overall recovering well, CXR this AM stable. Plan: NEURO: Tylenol for pain CV: home HTN meds, holding BLADE inhibitor PULM: Continue home inhalers, IS/cough/deep breathe/OOB/ambulate. Continue right pleurx to suction, monitor output. GI: Diabetic diet. senna/colace, miralax, dulcolax supp PRN : monitor uop, voiding FEK: Lytes PRN ID: IV Vanc per pharmacy, ID following. HEME: SQH ENDO: LINDA PROPHYLAXIS: SQH DISPO: 4W, inpatient floor status, plan for likely d/c tomorrow TIARA Cat 11/01/2019 Thoracic Surgery Service Pager [phone] Associated attestation - Angel Bragg MD - 11/02/2019 5:05 PM EDT I have seen the patient and reviewed the resident's above history and I agree with the details as written. The assessment and plan were formulated in discussion with me and I agree with them as documented. Plan: Mr. Meek was seen by me. He is stable. Will need PICC and OPAT plan. Preparing for dischargetomorrow. Angel Bragg MD Thoracic Surgery Rhonda Claire MD - 10/31/2019 4:17 PM EDT ID OPAT INTAKE __ This note is delineating a preliminary antibiotic plan to facilitate discharge planning and is NOT an official OPAT order. Final plans and acceptance into the OPAT program depend on a comprehensive discharge plan. __ Diagnosis: Infected pluerX catheter Empyema Organism: Corynebacterium Antibiotic(s): Vancomycin 1.5gm Q12H Start date: 10/27/2019 Anticipated end date: 11/24/2019 Desired labs: Weekly CBC CMP Vancomycin trough (target 10-15) Desired timing of first appointment: Week of November 17 2019 Other specialty appointments to coordinate with? [ xx ] yes: which specialty? Thoracic surgery [ ] no Imaging needed? [ ] yes: if so, what study? [ ] no Timing of imaging desired? [ ] same day as ID appointment [ ] same day as other appointment? What specialty? Weekly infusion at [facility] [place] [place]? [ ] yes: if so, please indicate day of week: [ ] no Rhonda Claire MD - 10/31/2019 3:57 PM EDT INFECTIOUS DISEASE FOLLOW-UP NOTE Active ID Issue(s): - Infected pluerX catheter - Empyema with corynebacterium spp Antimicrobial Therapy: - Ceftriaxone 2gm IV Daily - Vancomycin 1.5gm IV Q12H Intercurrent Events/Subjective Data: - no acute events overnight - no acute complaints - cultures with one colony of corynebacterium spp Physical Exam: Last value Range last 24 hrs Temperature Temp: 36.6 ??C (97.9 ??F) Temp: [36.6 ??C (97.9 ??F)-36.8 ??C (98.2 ??F)] Heart Rate Heart Rate: 89 Heart Rate: [78-95] Blood Pressure BP: 118/58 BP: (98-132)/(52-67) Respiratory Rate Resp: 16 Resp: [16-20] SpO2 SpO2: 92 % SpO2: [92 %-96 %] General: NAD Head: NC AT EENT: EOMI MMM Neck: no obvious JVD Cardiovascular: Pulmonary: nonlabored respirations, decreased breath sounds at the R base Abdomen: ND NT Ext: UE and LE WWP Skin: No obvious rashes Neuro: No facial droop or slurring of speech Laboratory: Lab Results Component Value Date WBC 12.3 (H) 10/31/2019 HGB 12.1 (L) 10/31/2019 HCT 39.6 (L) 10/31/2019 PLATELET 412 (H) 10/31/2019 Lab Results Component Value Date CREATININE 1.06 10/31/2019 Lab Results Component Value Date ALT 12 08/26/2019 AST 12 08/26/2019 ALKPHOS 84 08/26/2019 BILITOT 0.4 08/26/2019 No results found for: SEDRATE No results found for: CRP Micro: Date and Time: 10/28/2019 Status: Preliminary result ??-- AbnormalAbnormal Specimen Information: Pleural Fluid ?? Component Value Body Fluid Culture Abnormal One colony of Corynebacterium species probable contaminant Gram Stain Abnormal Cytocentrifuge Gram Stain performed No Neutrophils seen. Rare Gram Positive Rods Therapeutic agent Dose and interval Start date End date?? Piperacillin tazobactam 3.375gm Q8h 10/26 10/28 Vancomycin 2000mg Q24H 10/26 Present Ceftriaxone 2gm IV Q24H 10/28 Present Scheduled Meds: ??? Vancomycin Level - MAR Order Reminder NOT APPLICABLE Once ??? polyethylene glycol (MIRALAX)oral powder 17 g Oral BID ??? cefTRIAXone 2 g Intravenous Q24H ??? Vancomycin Level - MAR Order Reminder NOT APPLICABLE Once ??? amLODIPine 10 mg Oral Daily ??? budesonide-formoteroL 2 Inhalation Inhalation BID ??? chlorthalidone 25 mg Oral Daily ??? folic acid 1 mg Oral Daily ??? sodium chloride 0.9 % (flush) 5 mL Intravenous BID ??? senna 17.2 mg Oral QPM ??? docusate sodium 100 mg Oral TID ??? heparin (Porcine) 5,000 Units Subcutaneous Q8H CECE Continuous Infusions: PRN Meds:.vancomycin- intermittent dosing per levels, bisacodyL, acetaminophen, loperamide, sodium chloride 0.9 % (flush), lidocaine, ipratropium-albuteroL Radiology/Studies/Procedures: CT scan 10/31/2019 1. Right-sided pleural effusion is significantly decreased in size since June 2019 with partial reexpansion of the right lung. The effusion contains multiple foci of air consistent with continued loculation. Right-sided drainage catheter remains in place with tip in lung apex. 2. Rightward cardiomediastinal shift has increased in the setting of the decreased effusion. The right lung may not have reexpanded further related to scarring. 3. There are 2 stable right adrenal adenomas. Impression: Alin Meek is a 69 y.o.male with a history of with a history of COPD, Morbid obesity,HTN, and stage IIIA lung adenocarcinoma, s/p R pleurX catheter placement for recurrent pleural effusion in august 2019 (with cytology showing atypical cells) who is currently admitted due to a empyema with GPRs on gram stain. It appears only one colony of corynebacterium is growing- given the clotting and re clotting of the pleurX we are inclined to believe the pluerX is infected. Ideally we would want the catheter to be exchanged. For antimicrobials, Corynebacterium spp have varying susceptibilities- vancomycin does cover most. Given this, we recommend vancomycin 1.5gm Q12H for approximately 4 weeks time. While on this therapy, the patient should have weekly CBC CMP Vancomycin trough. Recommendations: 1. Stop ceftriaxone 2. Continue with Vancomycin 1.5gm Q12H with a tentative end date of 11/24/2019 3. While on this therapy please monitor weekly CBC CMP Vancomycin trough (target 10-15) 4. Please follow up with infectious disease the week of week of November 17 2019 Patient discussed with ID attending . Recommendations discussed with primary treating team. ID consult service will sign off. Please do not hesitate to page with any questions or concerns. Rhonda Claire MD 10/31/2019 3:59 PM 3163 Associated attestation - Otf Peres MD - 11/01/2019 12:05 PM EDT I have seen and examined the patient and discussed the assessment and plan with the fellow. I reviewed the fellow's note and I agree with the documented findings and recommendations. Concern for right sided empyema/infected PleurX catheter in this patient with stage IIIa lung cancer. The dataset is not conclusive: reported fevers at home but Tmax here only 100; WBC 15.2 declined to11; viscous drainage/clogging of catheter; pleural fluid on admission with GPR on gram stain but no WBC, culture only grew 1 colony of corynebacterium species. Given his underlying immunosuppression and emerging concern for corynebacterium as a pathogen, especially associated with hardware like his PleurX, we are in favor of treating. We strongly recommend exchanging the PleurX catheter and recommend treatment with vancomycin IV as outlined in Dr. Claire's note. Otf Peres MD ID Staff Physician Romina Tinsley PA - 10/31/2019 11:[address] [facility] Department of Thoracic Surgery Inpatient Progress Note Patient Name: Alin Meek Patient : [id number] Patient Patient Location: 410/410-B Attending Surgeon: SOLO MCCABE DAVID J ID: Alin Meek is a 69 y.o. male with stage IIIA lung adenocarcinoma s/p R VATS pleural bx andpleurX placement for recurrent right sided effusion who is admitted with concerns of clogged pleurX.Undergoing fibrinolytic therapy. 24 Hour Events / Subjective: - Received x6 cycles of tpa/dornase with good response of 1.3 L output in last 24hrs, (4.8L out total) - Gram stain from pleural fluid showing GPR - NAEON, AFVSS - WBC up to 12.3 from 9.7 - +BM yesterday after miralax Vitals: Temp: [36.6 ??C (97.9 ??F)-37.2 ??C (99 ??F)] Heart Rate: [78-95] Resp: [16-20] BP: (98-132)/(52-70) SpO2: [93 %-96 %] Heart Rate from SpO2: [76 bpm-95 bpm] Wt & BMI By Encounter Date ED to Hosp-Admission (Current) from 10/27/[address] [place] [id number] Office Visit from 10/21/2019 in Thoracic Surgery at [facility] [place] [place] Weight 134.8 kg (297 lb 3.2 oz) 1 10/31/2019 0453 (!) 138.8 kg (306 lb) 1 10/21/2019 1035 Physical Exam: Gen: NAD, pleasant, sitting up on side of bed HEENT: normocephalic, atraumatic Neck: supple, trachea midline Card: RRR Pulm: Diminished on right, otherwise CTAB, no wheeze/ronchi/rales appreciated, non-labored breathingon room air, R PleurX to pleurovac on suction with no airleak appreciated, serous fluid draining Abd: obese, soft, NT, bowel sounds present Ext: warm, dry, no edema Neuro: A&Ox3, CN II-XII grossly intact, nonfocal, conversant I/O: I/O last 3 completed shifts: In: 3295 [P.O.:868.8; IV Piggyback:2426.2] Out: 5316 [Urine:3550; Other:1766] PleurX Chest tube: 1296/450cc o/n from 1.2L Labs: Recent Results (from the past 72 hour(s)) Basic Metabolic Panel (non-fasting) Result Value Ref Range Glucose Lvl 117 65 - 199 mg/dL BUN 14 10 - 20 mg/dL Creatinine 1.20 0.80 - 1.50 mg/dL Sodium 132 (L) 135 - 145 mmol/L Potassium 4.5 3.5 - 5.0 mmol/L Chloride 96 (L) 98 - 107 mmol/L CO2 22 22 - 31 mmol/L Anion Gap 14 5 - 15 mmol/L Calcium 8.5 8.5 - 10.5 mg/dL eGFR 62 >=60 mL/min/1.73 m?? eGFR 72 >=60 mL/min/1.73 m?? Hemogram Result Value Ref Range WBC 11.6 (H) 4.0 - 9.5 x10(3)/mcL RBC 4.32 (L) 4.58 - 5.54 x10(6)/mcL Hemoglobin 10.3 (L) 13.7 - 16.5 gm/dL Hematocrit 33.8 (L) 40.5 - 48.5 % MCV 78.2 (L) 82.9 - 93.1 fL MCH 23.8 (L) 27.5 - 32.1 pg MCHC 30.5 (L) 32.0 - 35.7 gm/dL Platelets 341 145 - 357 x10(3)/mcL RDWSD 47.8 (H) 36.0 - 45.0 fL RDWCV 16.6 (H) 11.4 - 13.8 % MPV 8.6 7.6 - 12.9 fL nRBC % Auto 0.0 % nRBC Abs Auto 0.000 0.000 - 0.000 x10(3)/mcL Differential, Automated Result Value Ref Range Neutrophils % 84.3 % Neutr Abs (ANC) 9.78 (H) 1.70 - 6.10 x10(3)/mcL Lymphocytes % 7.2 % Lymphocytes Abs 0.8 (L) 0.9 - 3.2 x10(3)/mcL Monocytes % 5.7 % Monocyte Abs 0.7 0.3 - 0.9 x10(3)/mcL Eosinophils % 1.7 % Eosinophils Abs 0.2 0.0 - 0.4 x10(3)/mcL Basophils % 0.5 % Basophils Abs 0.1 0.0 - 0.1 x10(3)/mcL Immature Gran % 0.60 % Marylin Gran Abs 0.07 (H) 0.00 - 0.04 x10(3)/mcL Basic Metabolic Panel (non-fasting) Result Value Ref Range Glucose Lvl 224 (H) 65 - 199 mg/dL BUN 15 10 - 20 mg/dL Creatinine 1.15 0.80 - 1.50 mg/dL Sodium 133 (L) 135 - 145 mmol/L Potassium 4.4 3.5 - 5.0 mmol/L Chloride 97 (L) 98 - 107 mmol/L CO2 22 22 - 31 mmol/L Anion Gap 14 5 - 15 mmol/L Calcium 8.8 8.5 - 10.5 mg/dL eGFR 65 >=60 mL/min/1.73 m?? eGFR 75 >=60 mL/min/1.73 m?? Hemogram Result Value Ref Range WBC 9.9 (H) 4.0 - 9.5 x10(3)/mcL RBC 4.55 (L) 4.58 - 5.54 x10(6)/mcL Hemoglobin 11.1 (L) 13.7 - 16.5 gm/dL Hematocrit 35.9 (L) 40.5 - 48.5 % MCV 78.9 (L) 82.9 - 93.1 fL MCH 24.4 (L) 27.5 - 32.1 pg MCHC 30.9 (L) 32.0 - 35.7 gm/dL Platelets 340 145 - 357 x10(3)/mcL RDWSD 47.7 (H) 36.0 - 45.0 fL RDWCV 16.8 (H) 11.4 - 13.8 % MPV 8.5 7.6 - 12.9 fL nRBC % Auto 0.0 % nRBC Abs Auto 0.000 0.000 - 0.000 x10(3)/mcL Differential, Automated Result Value Ref Range Neutrophils % 86.2 % Neutr Abs (ANC) 8.55 (H) 1.70 - 6.10 x10(3)/mcL Lymphocytes % 6.0 % Lymphocytes Abs 0.6 (L) 0.9 - 3.2 x10(3)/mcL Monocytes % 3.5 % Monocyte Abs 0.4 0.3 - 0.9 x10(3)/mcL Eosinophils % 3.1 % Eosinophils Abs 0.3 0.0 - 0.4 x10(3)/mcL Basophils % 0.5 % Basophils Abs 0.0 0.0 - 0.1 x10(3)/mcL Immature Gran % 0.70 % Marylin Gran Abs 0.07 (H) 0.00 - 0.04 x10(3)/mcL Vancomycin, trough Result Value Ref Range Vanc Trough 13.6 mg/L Basic Metabolic Panel (non-fasting) Result Value Ref Range Glucose Lvl 114 65 - 199 mg/dL BUN 14 10 - 20 mg/dL Creatinine 0.90 0.80 - 1.50 mg/dL Sodium 131 (L) 135 - 145 mmol/L Potassium 4.4 3.5 - 5.0 mmol/L Chloride 98 98 - 107 mmol/L CO2 23 22 - 31 mmol/L Anion Gap 10 5 - 15 mmol/L Calcium 8.7 8.5 - 10.5 mg/dL eGFR 87 >=60 mL/min/1.73 m?? eGFR 101 >=60 mL/min/1.73 m?? Hemogram Result Value Ref Range WBC 9.7 (H) 4.0 - 9.5 x10(3)/mcL RBC 4.35 (L) 4.58 - 5.54 x10(6)/mcL Hemoglobin 10.4 (L) 13.7 - 16.5 gm/dL Hematocrit 34.1 (L) 40.5 - 48.5 % MCV 78.4 (L) 82.9 - 93.1 fL MCH 23.9 (L) 27.5 - 32.1 pg MCHC 30.5 (L) 32.0 - 35.7 gm/dL Platelets 379 (H) 145 - 357 x10(3)/mcL RDWSD 47.5 (H) 36.0 - 45.0 fL RDWCV 16.6 (H) 11.4 - 13.8 % MPV 8.6 7.6 - 12.9 fL nRBC % Auto 0.0 % nRBC Abs Auto 0.000 0.000 - 0.000 x10(3)/mcL Differential, Automated Result Value Ref Range Neutrophils % 78.8 % Neutr Abs (ANC) 7.66 (H) 1.70 - 6.10 x10(3)/mcL Lymphocytes % 8.6 % Lymphocytes Abs 0.8 (L) 0.9 - 3.2 x10(3)/mcL Monocytes % 7.6 % Monocyte Abs 0.7 0.3 - 0.9 x10(3)/mcL Eosinophils % 3.8 % Eosinophils Abs 0.4 0.0 - 0.4 x10(3)/mcL Basophils % 0.6 % Basophils Abs 0.1 0.0 - 0.1 x10(3)/mcL Immature Gran % 0.60 % Marylin Gran Abs 0.06 (H) 0.00 - 0.04 x10(3)/mcL Hemogram Result Value Ref Range WBC 12.3 (H) 4.0 - 9.5 x10(3)/mcL RBC 5.07 4.58 - 5.54 x10(6)/mcL Hemoglobin 12.1 (L) 13.7 - 16.5 gm/dL Hematocrit 39.6 (L) 40.5 - 48.5 % MCV 78.1 (L) 82.9 - 93.1 fL MCH 23.9 (L) 27.5 - 32.1 pg MCHC 30.6 (L) 32.0 - 35.7 gm/dL Platelets 412 (H) 145 - 357 x10(3)/mcL RDWSD 47.7 (H) 36.0 - 45.0 fL RDWCV 16.9 (H) 11.4 - 13.8 % MPV 8.4 7.6 - 12.9 fL nRBC % Auto 0.0 % nRBC Abs Auto 0.000 0.000 - 0.000 x10(3)/mcL Basic Metabolic Panel (non-fasting) Result Value Ref Range Glucose Lvl 125 65 - 199 mg/dL BUN 16 10 - 20 mg/dL Creatinine 1.06 0.80 - 1.50 mg/dL Sodium 132 (L) 135 - 145 mmol/L Potassium 4.6 3.5 - 5.0 mmol/L Chloride 96 (L) 98 - 107 mmol/L CO2 23 22 - 31 mmol/L Anion Gap 13 5 - 15 mmol/L Calcium 8.9 8.5 - 10.5 mg/dL eGFR 72 >=60 mL/min/1.73 m?? eGFR 83 >=60 mL/min/1.73 m?? Vancomycin, trough Result Value Ref Range Vanc Trough 24.8 (CRIT) mg/L Diagnostics: CXR 10/30/19 Redemonstrated RIGHT hydropneumothorax, with mild change in air and fluid components (probably mildly decreased fluid component). Similar nonspecific streaky LEFT basilar opacity. Persistent rightward mediastinal shift. RIGHT Pleurx drain redemonstrated. RIGHT Mediport similar, with catheter tip projecting over the upper chest. CXR 10/29/2019: Right-sided hydropneumothorax, decrease in fluid component and increase in air component. New left lower lobe opacity, concerning for pneumonia. CXR 10/28/2019 Decreased right-sided pleural fluid at the base, with air now present within the pleural space CXR 10/27/2019 Unchanged appearance to loculated RIGHT pleural fluid collections with a slight increase in the RIGHT lung base pleural fluid. Loss in the RIGHT lung. No pneumothorax. Pleurx catheter is in unchanged location. ?? Micro: Pleural Cx 10/28/2019: Preliminary with +gram positive rods Assessment: Alin Meek is a 69 y.o. male with stage IIIA lung adenocarcinoma and recurrent effusion s/p Pleurx placement, now with gram stain showing GPR c/w empyema and currently undergoing intrapleural fibrinolytic therapy with appropriate response. Will continue with full 6 cycles at this time. Remains af ebrile, although WBC up to 12.3 from 9.7. Plan: NEURO: Tylenol for pain CV: home HTN meds, holding BLADE inhibitor PULM: Continue home inhalers, CT Chest today to re-evaluate effusion. IS/cough/deep breathe/OOB/ambulate. Continue right pleurx to suction, monitor output. GI: NPO pending CT chest results, senna/colace, miralax, dulcolax supp PRN : monitor uop, voiding FEK: Lytes PRN ID: Vanc per cornelius, Juany f/u pleural fluid cultures from 10/27- [facility]'s, will send new set of pleural fluid cultures today. Appreciate ID involvement. HEME: SQH ENDO: LINDA PROPHYLAXIS: SQ DISPO: 4W, inpatient floor status TIARA Clarke 10/31/2019 Thoracic Surgery Service Pager [phone] Juan Jordan RN - 10/31/2019 1:16 AM EDT A+O x 4. VSS. Pain was controlled with resting in the bed. Continued on I.V abx as ordered. Alteplase 10 mg given at 2110 and Dornase 5 mg given at 0007 per MD at bedside. Time out done each time of medication administration by RN and MD. Right pigtail to -20 mm H2O suction with minimal output. Pt voided adequate amount of urine. NPO after MN as ordered. Will continue to monitor. Vancomycin level checked at 0530 as ordered. @0634: paged primary team for critical vancomycin level 24.8. Scheduled vancomycin infusion paused at the same time. Carol Mata RN - 10/30/2019 4:05 PM EDT Chart reviewed, care reviewed with primary team. Mr Meek continues to require acute hospital care following VATS. Ongoing issues include ?? Lung cancer/post VATS ?? Intrapleural fibrinolytic therapy completing tomorrow AM ?? Empyema on IV ceftriaxone and IV vanco-followed by ID and awaiting final cultures for IV abx plan. ?? Hydropneumothorax with pleurex drain Functional status prior to admission: Was living at home with who provided assistance to get upfrom chair and then independent with a cane. He was driving. At this time he is independent with hiscane and supervision in the hospital environment. Plan for discharge is home with IV antibiotics and pleurex drain. Spoke to Melissa at [employer] who let me know that she is on leave starting tomorrow and lana Smart will be following to assist with coverage of IV abx by [employer]. She states that the [facility] will cover the cost of the antibiotic and administration equipment and his follow up with continue through OPAT. She will want a contact number for OPAT at the time of placing the order. His VNA care and OPAT follow up will go through his Medicare. I have asked Geovanny to place his Medicare insurance as secondary on his demographics. Notified by Dr Jose that patient will require home IV antibiotics on discharge. Earlier today, team communicated potential discharge tomorrow or Sunday, but now changed to his being here over the weekend. ID consult order in place and ID following cultures to determine final antibiotics. PICC line is not in place. I have sent secure chat to resident to order line. Met with patient to discuss home IV antibiotic process and role of [facility] in providing services or coordinating with an infusion company within patient's insurance network to identify a vendor that can provide these services. Patient is a [facility] patient and I spoke to Melissa at the [facility] clinic-she will be on leave starting tomorrow and her covering person will be Lana Smart and can be reached at [phone]. I reviewed a list of Home Health Agencies with patient which serve the preferred geographic area. A letter describing our affiliations was reviewed and education provided about the right to choose where referrals are placed. Patient requests referral to [facility] PHONE: [phone] FAX: [phone] Expected date of discharge: 11/02 at the earliest. I have notified intake at [facility] to anticipate discharge early next week. Referral routed to the Building Code Administrator for matching with agency and notifying [facility] through [employer] and to provide any required information. Email to OPAT RN that patient will need OPAT orders and coordination for discharge home. CM will continue to follow and assist with discharge planning and coordination of care as indicated. Marbella Jarrell APRN - 10/30/2019 9:[address] [facility] Department of Thoracic Surgery Inpatient Progress Note Patient Name: Alin Meek Patient : 1950 Patient Patient Location: [address] [place] [address] Attending Surgeon: SOLO MCCABE DAVID J ID: Alin Meek is a 69 y.o. male with stage IIIA lung adenocarcinoma s/p R VATS pleural bx andpleurX placement for recurrent right sided effusion who is admitted with concerns of clogged pleurX.Undergoing fibrinolytic therapy. 24 Hour Events / Subjective: - Received x4 cycles of tpa/dornase with good response of 1.2 L output - Gram stain from pleural fluid showing GPR - NAEON, AFVSS - Report constipation and last BM Sunday Vitals: Temp: [36.3 ??C (97.3 ??F)-37 ??C (98.6 ??F)] Heart Rate: [85-91] Resp: [17-18] BP: (95-125)/(47-66) SpO2: [93 %-95 %] Heart Rate from SpO2: [76 bpm-91 bpm] Wt & BMI By Encounter Date ED to Hosp-Admission (Current) from 10/27/[address] [place] [address] Office Visit from 10/21/2019 in Thoracic Surgery at [facility] [place] [place] Weight 135.7 kg (299 lb 2.6 oz) 1 10/30/2019 0511 (!) 138.8 kg (306 lb) 1 10/21/2019 1035 Physical Exam: Gen: NAD, pleasant, sitting up on side of bed HEENT: normocephalic, atraumatic Neck: supple, trachea midline Card: RRR Pulm: Diminished on right, otherwise CTAB, no wheeze/ronchi/rales appreciated, non-labored breathingon room air, R PleurX to pleurovac on suction with no airleak appreciated, serous fluid draining Abd: obese, soft, NT, bowel sounds present Ext: warm, dry, no edema Neuro: A&Ox3, CN II-XII grossly intact, nonfocal, conversant I/O: I/O last 3 completed shifts: In: 3257 [P.O.:1703; IV Piggyback:1554] Out: 3905 [Urine:2375; Other:1530] PleurX Chest tube: 1180/470cc o/n from 1.5L total Labs: Recent Results (from the past 72 hour(s)) EKG 12 Lead Result Value Ref Range Ventricular rate 97 BPM Atrial Rate 97 BPM P-R Interval 126 ms QRS Duration 86 ms Q-T Interval 356 ms QTC Calculated (Bezet) 452 ms Calculated P [place] -19 degrees Calculated T [place] 30 degrees INTERPRETATION Sinus rhythm with marked sinus arrhythmia Nonspecific ST abnormality Abnormal ECG When compared with ECG of 26-AUG-2019 09:55, No significant change was found Confirmed by Rosibel Bearden ([email or web address]) on 10/28/2019 9:44:33 AM Blood Gas Venous Result Value Ref Range pH Ray 7.41 7.32 - 7.42 pCO2 Ray 39 (L) 41 - 51 mmHg pO2 Ray 34 25 - 40 mmHg HCO3 Ray 24.1 mmol/L BE Ray -0.6 mmol/L Hgb Blood Gas 11.9 (L) 13.7 - 16.5 gm/dL O2HB Ray 62.7 % COHB Ray 1.5 % METHB Ray 0.3 <=1.5 % Na Whole Blood 130 (L) 135 - 145 mmol/L K Whole Blood 4.4 3.5 - 5.0 mmol/L ICa Whole Blood 1.14 (L) 1.15 - 1.33 mmol/L CL Whole Blood 97 (L) 98 - 107 mmol/L Gluc Whole Bld 106 65 - 199 mg/dL Lactate WB 1.3 0.5 - 2.2 mmol/L BGas Source Venous Basic Metabolic Panel (non-fasting) Result Value Ref Range Glucose Lvl 102 65 - 199 mg/dL BUN 14 10 - 20 mg/dL Creatinine 1.04 0.80 - 1.50 mg/dL Sodium 129 (L) 135 - 145 mmol/L Potassium 4.4 3.5 - 5.0 mmol/L Chloride 94 (L) 98 - 107 mmol/L CO2 24 22 - 31 mmol/L Anion Gap 11 5 - 15 mmol/L Calcium 9.1 8.5 - 10.5 mg/dL eGFR 73 >=60 mL/min/1.73 m?? eGFR 85 >=60 mL/min/1.73 m?? Troponin Result Value Ref Range Troponin-T <0.01 0.00 - 0.00 ng/mL Hemogram Result Value Ref Range WBC 15.2 (H) 4.0 - 9.5 x10(3)/mcL RBC 4.44 (L) 4.58 - 5.54 x10(6)/mcL Hemoglobin 10.8 (L) 13.7 - 16.5 gm/dL Hematocrit 34.4 (L) 40.5 - 48.5 % MCV 77.5 (L) 82.9 - 93.1 fL MCH 24.3 (L) 27.5 - 32.1 pg MCHC 31.4 (L) 32.0 - 35.7 gm/dL Platelets 357 145 - 357 x10(3)/mcL RDWSD 46.6 (H) 36.0 - 45.0 fL RDWCV 16.5 (H) 11.4 - 13.8 % MPV 8.7 7.6 - 12.9 fL nRBC % Auto 0.0 % nRBC Abs Auto 0.000 0.000 - 0.000 x10(3)/mcL Differential, Automated Result Value Ref Range Neutrophils % 84.1 % Neutr Abs (ANC) 12.78 (H) 1.70 - 6.10 x10(3)/mcL Lymphocytes % 8.0 % Lymphocytes Abs 1.2 0.9 - 3.2 x10(3)/mcL Monocytes % 6.2 % Monocyte Abs 0.9 0.3 - 0.9 x10(3)/mcL Eosinophils % 0.5 % Eosinophils Abs 0.1 0.0 - 0.4 x10(3)/mcL Basophils % 0.3 % Basophils Abs 0.0 0.0 - 0.1 x10(3)/mcL Immature Gran % 0.90 % Marylin Gran Abs 0.13 (H) 0.00 - 0.04 x10(3)/mcL Gold Tube HOLD Result Value Ref Range Gold Hold Sample in lab. Blue Tube HOLD Result Value Ref Range Blue Hold Sample in lab. Blood culture Result Value Ref Range Blood Culture No growth at 2 days. Body Fluid Culture, Aerobic Result Value Ref Range Body Fluid Culture No growth to date. (A) Gram Stain (A) Cytocentrifuge Gram Stain performed No Neutrophils seen. Rare Gram Positive Rods Results called to and read back by Rhonda Jolly Organism Gram Positive Rods (A) Anaerobic Culture Result Value Ref Range Anaerobic Culture No anaerobic organisms isolated to date Fungus culture Result Value Ref Range Fungus Culture No Fungus isolated to date Calcofluor White Stain Result Value Ref Range Calcofluor Stain Calcofluor White Preparation: Negative Basic Metabolic Panel (non-fasting) Result Value Ref Range Glucose Lvl 117 65 - 199 mg/dL BUN 14 10 - 20 mg/dL Creatinine 1.20 0.80 - 1.50 mg/dL Sodium 132 (L) 135 - 145 mmol/L Potassium 4.5 3.5 - 5.0 mmol/L Chloride 96 (L) 98 - 107 mmol/L CO2 22 22 - 31 mmol/L Anion Gap 14 5 - 15 mmol/L Calcium 8.5 8.5 - 10.5 mg/dL eGFR 62 >=60 mL/min/1.73 m?? eGFR 72 >=60 mL/min/1.73 m?? Hemogram Result Value Ref Range WBC 11.6 (H) 4.0 - 9.5 x10(3)/mcL RBC 4.32 (L) 4.58 - 5.54 x10(6)/mcL Hemoglobin 10.3 (L) 13.7 - 16.5 gm/dL Hematocrit 33.8 (L) 40.5 - 48.5 % MCV 78.2 (L) 82.9 - 93.1 fL MCH 23.8 (L) 27.5 - 32.1 pg MCHC 30.5 (L) 32.0 - 35.7 gm/dL Platelets 341 145 - 357 x10(3)/mcL RDWSD 47.8 (H) 36.0 - 45.0 fL RDWCV 16.6 (H) 11.4 - 13.8 % MPV 8.6 7.6 - 12.9 fL nRBC % Auto 0.0 % nRBC Abs Auto 0.000 0.000 - 0.000 x10(3)/mcL Differential, Automated Result Value Ref Range Neutrophils % 84.3 % Neutr Abs (ANC) 9.78 (H) 1.70 - 6.10 x10(3)/mcL Lymphocytes % 7.2 % Lymphocytes Abs 0.8 (L) 0.9 - 3.2 x10(3)/mcL Monocytes % 5.7 % Monocyte Abs 0.7 0.3 - 0.9 x10(3)/mcL Eosinophils % 1.7 % Eosinophils Abs 0.2 0.0 - 0.4 x10(3)/mcL Basophils % 0.5 % Basophils Abs 0.1 0.0 - 0.1 x10(3)/mcL Immature Gran % 0.60 % Marylin Gran Abs 0.07 (H) 0.00 - 0.04 x10(3)/mcL Basic Metabolic Panel (non-fasting) Result Value Ref Range Glucose Lvl 224 (H) 65 - 199 mg/dL BUN 15 10 - 20 mg/dL Creatinine 1.15 0.80 - 1.50 mg/dL Sodium 133 (L) 135 - 145 mmol/L Potassium 4.4 3.5 - 5.0 mmol/L Chloride 97 (L) 98 - 107 mmol/L CO2 22 22 - 31 mmol/L Anion Gap 14 5 - 15 mmol/L Calcium 8.8 8.5 - 10.5 mg/dL eGFR 65 >=60 mL/min/1.73 m?? eGFR 75 >=60 mL/min/1.73 m?? Hemogram Result Value Ref Range WBC 9.9 (H) 4.0 - 9.5 x10(3)/mcL RBC 4.55 (L) 4.58 - 5.54 x10(6)/mcL Hemoglobin 11.1 (L) 13.7 - 16.5 gm/dL Hematocrit 35.9 (L) 40.5 - 48.5 % MCV 78.9 (L) 82.9 - 93.1 fL MCH 24.4 (L) 27.5 - 32.1 pg MCHC 30.9 (L) 32.0 - 35.7 gm/dL Platelets 340 145 - 357 x10(3)/mcL RDWSD 47.7 (H) 36.0 - 45.0 fL RDWCV 16.8 (H) 11.4 - 13.8 % MPV 8.5 7.6 - 12.9 fL nRBC % Auto 0.0 % nRBC Abs Auto 0.000 0.000 - 0.000 x10(3)/mcL Differential, Automated Result Value Ref Range Neutrophils % 86.2 % Neutr Abs (ANC) 8.55 (H) 1.70 - 6.10 x10(3)/mcL Lymphocytes % 6.0 % Lymphocytes Abs 0.6 (L) 0.9 - 3.2 x10(3)/mcL Monocytes % 3.5 % Monocyte Abs 0.4 0.3 - 0.9 x10(3)/mcL Eosinophils % 3.1 % Eosinophils Abs 0.3 0.0 - 0.4 x10(3)/mcL Basophils % 0.5 % Basophils Abs 0.0 0.0 - 0.1 x10(3)/mcL Immature Gran % 0.70 % Marylin Gran Abs 0.07 (H) 0.00 - 0.04 x10(3)/mcL Vancomycin, trough Result Value Ref Range Vanc Trough 13.6 mg/L Basic Metabolic Panel (non-fasting) Result Value Ref Range Glucose Lvl 114 65 - 199 mg/dL BUN 14 10 - 20 mg/dL Creatinine 0.90 0.80 - 1.50 mg/dL Sodium 131 (L) 135 - 145 mmol/L Potassium 4.4 3.5 - 5.0 mmol/L Chloride 98 98 - 107 mmol/L CO2 23 22 - 31 mmol/L Anion Gap 10 5 - 15 mmol/L Calcium 8.7 8.5 - 10.5 mg/dL eGFR 87 >=60 mL/min/1.73 m?? eGFR 101 >=60 mL/min/1.73 m?? Hemogram Result Value Ref Range WBC 9.7 (H) 4.0 - 9.5 x10(3)/mcL RBC 4.35 (L) 4.58 - 5.54 x10(6)/mcL Hemoglobin 10.4 (L) 13.7 - 16.5 gm/dL Hematocrit 34.1 (L) 40.5 - 48.5 % MCV 78.4 (L) 82.9 - 93.1 fL MCH 23.9 (L) 27.5 - 32.1 pg MCHC 30.5 (L) 32.0 - 35.7 gm/dL Platelets 379 (H) 145 - 357 x10(3)/mcL RDWSD 47.5 (H) 36.0 - 45.0 fL RDWCV 16.6 (H) 11.4 - 13.8 % MPV 8.6 7.6 - 12.9 fL nRBC % Auto 0.0 % nRBC Abs Auto 0.000 0.000 - 0.000 x10(3)/mcL Differential, Automated Result Value Ref Range Neutrophils % 78.8 % Neutr Abs (ANC) 7.66 (H) 1.70 - 6.10 x10(3)/mcL Lymphocytes % 8.6 % Lymphocytes Abs 0.8 (L) 0.9 - 3.2 x10(3)/mcL Monocytes % 7.6 % Monocyte Abs 0.7 0.3 - 0.9 x10(3)/mcL Eosinophils % 3.8 % Eosinophils Abs 0.4 0.0 - 0.4 x10(3)/mcL Basophils % 0.6 % Basophils Abs 0.1 0.0 - 0.1 x10(3)/mcL Immature Gran % 0.60 % Marylin Gran Abs 0.06 (H) 0.00 - 0.04 x10(3)/mcL Diagnostics: CXR 10/30/19 Redemonstrated RIGHT hydropneumothorax, with mild change in air and fluid components (probably mildly decreased fluid component). Similar nonspecific streaky LEFT basilar opacity. Persistent rightward mediastinal shift. RIGHT Pleurx drain redemonstrated. RIGHT Mediport similar, with catheter tip projecting over the upper chest. CXR 10/29/2019: Right-sided hydropneumothorax, decrease in fluid component and increase in air component. New left lower lobe opacity, concerning for pneumonia. CXR 10/28/2019 Decreased right-sided pleural fluid at the base, with air now present within the pleural space CXR 10/27/2019 Unchanged appearance to loculated RIGHT pleural fluid collections with a slight increase in the RIGHT lung base pleural fluid. Loss in the RIGHT lung. No pneumothorax. Pleurx catheter is in unchanged location. ?? Micro: Pleural Cx 10/28/2019: Preliminary with +gram positive rods Assessment: Alin Meek is a 69 y.o. male with stage IIIA lung adenocarcinoma and recurrent effusion s/p Pleurx placement, now with gram stain showing GPR c/w empyema and currently undergoing intrapleural fibrinolytic therapy with appropriate response. Will continue with full 6 cycles at this time. Remains af ebrile, without leukocytosis and HDN. Plan: NEURO: Tylenol for pain CV: home HTN meds, holding BLADE inhibitor PULM: Continue home inhalers, continue tpa/dornase today (5&6 of 6), CT Chest tomorrow to evaluate effusion. IS/cough/deep breathe/OOB/ambulate. Continue right pleurx to suction, monitor output. GI: Regular diet, RBO, add miralax BID and Dulcolax PRN : monitor uop, voiding FEK: Lytes PRN ID: Vanc per pharmacy, Zosyn, f/u pleural fluid cultures. ID consult HEME: SQH ENDO: LINDA PROPHYLAXIS: SQH DISPO: 4W, inpatient floor status Marbella Jarrell, EMPLOYMENT MANAGER 10/30/2019 Thoracic Surgery Service Pager [phone] Betty Woods RN - 10/29/2019 1:38 PM EDT Office of Care Management (OCM /Caremanger (CM)/ Discharge planning ) Service Pager # [phone]. Report received from IDDRs Patient plan of care discussed with Team and Nursing to assessment for continuing care and dischargeneeds. [facility]: 2 DECISION MAKER: Full Code, <no information> Has capacity Patient continues to require hospitalization.For at least 48 more Hours he is getting a run of TPA dornase . Showing good response to treatment . Id has been consulted . Current Referral in place: None at this time PR bottle caser is Bria White [phone] listed on demographic is [facility] MD Barriers to Discharge: Watch for ABX need / [facility] Is primary insurance Family Concerns: None at this time Anticipate Transport at time of discharge: Plan: CM will continue to follow for coordination of care and to facilitate discharge planning. Betty Woods RN CM Pager # [phone] Belen Burns PA - 10/29/2019 8:[address] [facility] Department of Thoracic Surgery Inpatient Progress Note Patient Name: Alin Meek Patient : 1950 Patient [facility] Attending Surgeon: SOLO MCCABE DAVID J ID: Alin Meek is a 69 y.o. male with stage IIIA lung adenocarcinoma s/p R VATS pleural bx andpleurX placement for recurrent right sided effusion who is admitted with concerns of clogged pleurX.Undergoing fibrinolytic therapy. 24 Hour Events / Subjective: - Received x2 cycles of tpa/dornase with good response of 1.5 L output - gram stain from pleural fluid showing GPR - NAEON Vitals: Temp: [36.2 ??C (97.2 ??F)-37.2 ??C (99 ??F)] Heart Rate: [91-103] Resp: [16-17] BP: (102-136)/(47-82) SpO2: [93 %-96 %] Heart Rate from SpO2: [70 bpm-103 bpm] Wt & BMI By Encounter Date ED to Hosp-Admission (Current) from 10/27/[address] [place] [address] Office Visit from 10/21/2019 in Thoracic Surgery at [facility] [place] [place] Weight 135.2 kg (298 lb 1 oz) 1 10/29/2019 0500 (!) 138.8 kg (306 lb) 1 10/21/2019 1035 Physical Exam: Gen: NAD, pleasant, sitting up on side of bed HEENT: normocephalic, atraumatic Neck: supple, trachea midline Card: RRR Pulm: Diminished on right, otherwise CTAB, no wheeze/ronchi/rales appreciated, non-labored breathingon room air, R PleurX to pleurovac on suction with no airleak appreciated, serous fluid draining Abd: obese, soft, NT Ext: warm, dry, no edema Neuro: A&Ox3, CN II-XII grossly intact, nonfocal, conversant I/O: I/O last 3 completed shifts: In: 2355.6 [P.O.:1040; I.V.:584.6; IV Piggyback:731] Out: 4715 [Urine:2325; Other:2390] PleurX Chest tube: right side, 1480/350cc o/n from 910cc total Labs: Recent Results (from the past 72 hour(s)) EKG 12 Lead Result Value Ref Range Ventricular rate 97 BPM Atrial Rate 97 BPM P-R Interval 126 ms QRS Duration 86 ms Q-T Interval 356 ms QTC Calculated (Bezet) 452 ms Calculated P [place] -19 degrees Calculated T [place] 30 degrees INTERPRETATION Sinus rhythm with marked sinus arrhythmia Nonspecific ST abnormality Abnormal ECG When compared with ECG of 26-AUG-2019 09:55, No significant change was found Confirmed by Rosibel Bearden ([id number]) on 10/28/2019 9:44:33 AM Blood Gas Venous Result Value Ref Range pH Ray 7.41 7.32 - 7.42 pCO2 Ray 39 (L) 41 - 51 mmHg pO2 Ray 34 25 - 40 mmHg HCO3 Ray 24.1 mmol/L BE Ray -0.6 mmol/L Hgb Blood Gas 11.9 (L) 13.7 - 16.5 gm/dL O2HB Ray 62.7 % COHB Ray 1.5 % METHB Ray 0.3 <=1.5 % Na Whole Blood 130 (L) 135 - 145 mmol/L K Whole Blood 4.4 3.5 - 5.0 mmol/L ICa Whole Blood 1.14 (L) 1.15 - 1.33 mmol/L CL Whole Blood 97 (L) 98 - 107 mmol/L Gluc Whole Bld 106 65 - 199 mg/dL Lactate WB 1.3 0.5 - 2.2 mmol/L BGas Source Venous Basic Metabolic Panel (non-fasting) Result Value Ref Range Glucose Lvl 102 65 - 199 mg/dL BUN 14 10 - 20 mg/dL Creatinine 1.04 0.80 - 1.50 mg/dL Sodium 129 (L) 135 - 145 mmol/L Potassium 4.4 3.5 - 5.0 mmol/L Chloride 94 (L) 98 - 107 mmol/L CO2 24 22 - 31 mmol/L Anion Gap 11 5 - 15 mmol/L Calcium 9.1 8.5 - 10.5 mg/dL eGFR 73 >=60 mL/min/1.73 m?? eGFR 85 >=60 mL/min/1.73 m?? Troponin Result Value Ref Range Troponin-T <0.01 0.00 - 0.00 ng/mL Hemogram Result Value Ref Range WBC 15.2 (H) 4.0 - 9.5 x10(3)/mcL RBC 4.44 (L) 4.58 - 5.54 x10(6)/mcL Hemoglobin 10.8 (L) 13.7 - 16.5 gm/dL Hematocrit 34.4 (L) 40.5 - 48.5 % MCV 77.5 (L) 82.9 - 93.1 fL MCH 24.3 (L) 27.5 - 32.1 pg MCHC 31.4 (L) 32.0 - 35.7 gm/dL Platelets 357 145 - 357 x10(3)/mcL RDWSD 46.6 (H) 36.0 - 45.0 fL RDWCV 16.5 (H) 11.4 - 13.8 % MPV 8.7 7.6 - 12.9 fL nRBC % Auto 0.0 % nRBC Abs Auto 0.000 0.000 - 0.000 x10(3)/mcL Differential, Automated Result Value Ref Range Neutrophils % 84.1 % Neutr Abs (ANC) 12.78 (H) 1.70 - 6.10 x10(3)/mcL Lymphocytes % 8.0 % Lymphocytes Abs 1.2 0.9 - 3.2 x10(3)/mcL Monocytes % 6.2 % Monocyte Abs 0.9 0.3 - 0.9 x10(3)/mcL Eosinophils % 0.5 % Eosinophils Abs 0.1 0.0 - 0.4 x10(3)/mcL Basophils % 0.3 % Basophils Abs 0.0 0.0 - 0.1 x10(3)/mcL Immature Gran % 0.90 % Marylin Gran Abs 0.13 (H) 0.00 - 0.04 x10(3)/mcL Gold Tube HOLD Result Value Ref Range Gold Hold Sample in lab. Blue Tube HOLD Result Value Ref Range Blue Hold Sample in lab. Blood culture Result Value Ref Range Blood Culture No growth at 1 day. Body Fluid Culture, Aerobic Result Value Ref Range Body Fluid Culture No growth to date. (A) Gram Stain (A) Cytocentrifuge Gram Stain performed No Neutrophils seen. Rare Gram Positive Rods Results called to and read back by Rhonda Jolly Organism Gram Positive Rods (A) Fungus culture Result Value Ref Range Fungus Culture No Fungus isolated to date Calcofluor White Stain Result Value Ref Range Calcofluor Stain Calcofluor White Preparation: Negative Basic Metabolic Panel (non-fasting) Result Value Ref Range Glucose Lvl 117 65 - 199 mg/dL BUN 14 10 - 20 mg/dL Creatinine 1.20 0.80 - 1.50 mg/dL Sodium 132 (L) 135 - 145 mmol/L Potassium 4.5 3.5 - 5.0 mmol/L Chloride 96 (L) 98 - 107 mmol/L CO2 22 22 - 31 mmol/L Anion Gap 14 5 - 15 mmol/L Calcium 8.5 8.5 - 10.5 mg/dL eGFR 62 >=60 mL/min/1.73 m?? eGFR 72 >=60 mL/min/1.73 m?? Hemogram Result Value Ref Range WBC 11.6 (H) 4.0 - 9.5 x10(3)/mcL RBC 4.32 (L) 4.58 - 5.54 x10(6)/mcL Hemoglobin 10.3 (L) 13.7 - 16.5 gm/dL Hematocrit 33.8 (L) 40.5 - 48.5 % MCV 78.2 (L) 82.9 - 93.1 fL MCH 23.8 (L) 27.5 - 32.1 pg MCHC 30.5 (L) 32.0 - 35.7 gm/dL Platelets 341 145 - 357 x10(3)/mcL RDWSD 47.8 (H) 36.0 - 45.0 fL RDWCV 16.6 (H) 11.4 - 13.8 % MPV 8.6 7.6 - 12.9 fL nRBC % Auto 0.0 % nRBC Abs Auto 0.000 0.000 - 0.000 x10(3)/mcL Differential, Automated Result Value Ref Range Neutrophils % 84.3 % Neutr Abs (ANC) 9.78 (H) 1.70 - 6.10 x10(3)/mcL Lymphocytes % 7.2 % Lymphocytes Abs 0.8 (L) 0.9 - 3.2 x10(3)/mcL Monocytes % 5.7 % Monocyte Abs 0.7 0.3 - 0.9 x10(3)/mcL Eosinophils % 1.7 % Eosinophils Abs 0.2 0.0 - 0.4 x10(3)/mcL Basophils % 0.5 % Basophils Abs 0.1 0.0 - 0.1 x10(3)/mcL Immature Gran % 0.60 % Marylin Gran Abs 0.07 (H) 0.00 - 0.04 x10(3)/mcL Diagnostics: CXR 10/29/2019: Right-sided hydropneumothorax, decrease in fluid component and increase in air component. ?? New left lower lobe opacity, concerning for pneumonia. CXR 10/28/2019 Decreased right-sided pleural fluid at the base, with air now present within the pleural space CXR 10/27/2019 Unchanged appearance to loculated RIGHT pleural fluid collections with a slight increase in the RIGHT lung base pleural fluid. Loss in the RIGHT lung. No pneumothorax. Pleurx catheter is in unchanged location. ?? Micro: Pleural Cx 10/28/2019: Preliminary with +gram positive rods Assessment: Alin Meek is a 69 y.o. male with stage IIIA lung adenocarcinoma and recurrent effusion s/p Pleurx placement, now with gram stain showing GPR c/w empyema and currently undergoing intrapleural fibrinolytic therapy with appropriate response. Will continue with full 6 cycles at this time. Remains af ebrile, without leukocytosis and HDN. Plan: NEURO: tylenol for pain CV: home HTN meds, holding BLADE inhibitor PULM: Continue home inhalers, continue tpa/dornase today (3&4 of 6), AM CXR. IS/cough/deep breathe/OOB/ambulate. Continue right pleurx to suction, monitor output. GI: Regular diet, rbo prn :monitor uop FEK: Lytes PRN ID: Vanc per pharmacy, Zosyn, f/u pleural fluid cultures. ID consult HEME: LINDA ENDO: LINDA PROPHYLAXIS: SQH DISPO: 4W, inpatient floor status TIARA Seth 10/29/2019 Thoracic Surgery Service Pager [phone] Baltazar Kuhn - 10/28/2019 3:04 PM EDT Narrative:Visited to introduce and assess acceptance of Videotape Recording Engineer services. Pt was not available for visit and I will visit an other time. Assessment: Outcome: Follow up: Time; Romina Tinsley PA - 10/28/2019 1:[address] [facility] Department of Thoracic Surgery Inpatient Progress Note Patient Name: Alin Meek Patient : 1950 Patient Patient Location: [facility] Attending Surgeon: SOLO MCCABE DAVID J ID: Alin Meek is a 69 y.o. male with stage IIIA lung adenocarcinoma s/p R VATS pleural bx andpleurX placement for recurrent right sided effusion who is admitted with concerns of clogged pleurX.Undergoing fibrinolytic therapy. 24 Hour Events / Subjective: - Received 1 cycle of tpa/dornase yesterday with pleurX output 910 - Saturating well on room air - Feels well this morning, no SOB Vitals: Temp: [36.6 ??C (97.9 ??F)-37.8 ??C (100 ??F)] Heart Rate: [94-107] Resp: [16-26] BP: (98-129)/(42-87) SpO2: [92 %-97 %] Heart Rate from SpO2: [79 bpm-97 bpm] Wt & BMI By Encounter Date ED to Hosp-Admission (Current) from 10/27/[address] [place] [address] Office Visit from 10/21/2019 in Thoracic Surgery at [facility] [place] [place] Weight 136.1 kg (300 lb) 1 10/27/2019 1428 (!) 138.8 kg (306 lb) 1 10/21/2019 1035 Physical Exam: Gen: NAD, pleasant, sitting in bed HEENT: normocephalic, atraumatic Neck: supple, trachea midline Card: RRR, no M/R/G appreciated Pulm: Diminished on right, otherwise CTAB, no wheeze/ronchi/rales appreciated, non-labored breathingon room air, R PleurX CT: to suction with no airleak appreciated, serous fluid draining Abd: soft, NT, BS+ Ext: warm, dry, no edema Neuro: A&Ox3, CN II-XII grossly intact, nonfocal, conversant I/O: I/O last 3 completed shifts: In: 75 [IV Piggyback:75] Out: 1435 [Urine:525; Other:910] PleurX Chest tube: right side, 910cc total Labs: Recent Results (from the past 72 hour(s)) EKG 12 Lead Result Value Ref Range Ventricular rate 97 BPM Atrial Rate 97 BPM P-R Interval 126 ms QRS Duration 86 ms Q-T Interval 356 ms QTC Calculated (Bezet) 452 ms Calculated P [place] -19 degrees Calculated T [place] 30 degrees INTERPRETATION Sinus rhythm with marked sinus arrhythmia Nonspecific ST abnormality Abnormal ECG When compared with ECG of 26-AUG-2019 09:55, No significant change was found Confirmed by Rosibel Bearden ([id number]) on 10/28/2019 9:44:33 AM Blood Gas Venous Result Value Ref Range pH Ray 7.41 7.32 - 7.42 pCO2 Ray 39 (L) 41 - 51 mmHg pO2 Ray 34 25 - 40 mmHg HCO3 Ray 24.1 mmol/L BE Ray -0.6 mmol/L Hgb Blood Gas 11.9 (L) 13.7 - 16.5 gm/dL O2HB Ray 62.7 % COHB Ray 1.5 % METHB Ray 0.3 <=1.5 % Na Whole Blood 130 (L) 135 - 145 mmol/L K Whole Blood 4.4 3.5 - 5.0 mmol/L ICa Whole Blood 1.14 (L) 1.15 - 1.33 mmol/L CL Whole Blood 97 (L) 98 - 107 mmol/L Gluc Whole Bld 106 65 - 199 mg/dL Lactate WB 1.3 0.5 - 2.2 mmol/L BGas Source Venous Basic Metabolic Panel (non-fasting) Result Value Ref Range Glucose Lvl 102 65 - 199 mg/dL BUN 14 10 - 20 mg/dL Creatinine 1.04 0.80 - 1.50 mg/dL Sodium 129 (L) 135 - 145 mmol/L Potassium 4.4 3.5 - 5.0 mmol/L Chloride 94 (L) 98 - 107 mmol/L CO2 24 22 - 31 mmol/L Anion Gap 11 5 - 15 mmol/L Calcium 9.1 8.5 - 10.5 mg/dL eGFR 73 >=60 mL/min/1.73 m?? eGFR 85 >=60 mL/min/1.73 m?? Troponin Result Value Ref Range Troponin-T <0.01 0.00 - 0.00 ng/mL Hemogram Result Value Ref Range WBC 15.2 (H) 4.0 - 9.5 x10(3)/mcL RBC 4.44 (L) 4.58 - 5.54 x10(6)/mcL Hemoglobin 10.8 (L) 13.7 - 16.5 gm/dL Hematocrit 34.4 (L) 40.5 - 48.5 % MCV 77.5 (L) 82.9 - 93.1 fL MCH 24.3 (L) 27.5 - 32.1 pg MCHC 31.4 (L) 32.0 - 35.7 gm/dL Platelets 357 145 - 357 x10(3)/mcL RDWSD 46.6 (H) 36.0 - 45.0 fL RDWCV 16.5 (H) 11.4 - 13.8 % MPV 8.7 7.6 - 12.9 fL nRBC % Auto 0.0 % nRBC Abs Auto 0.000 0.000 - 0.000 x10(3)/mcL Differential, Automated Result Value Ref Range Neutrophils % 84.1 % Neutr Abs (ANC) 12.78 (H) 1.70 - 6.10 x10(3)/mcL Lymphocytes % 8.0 % Lymphocytes Abs 1.2 0.9 - 3.2 x10(3)/mcL Monocytes % 6.2 % Monocyte Abs 0.9 0.3 - 0.9 x10(3)/mcL Eosinophils % 0.5 % Eosinophils Abs 0.1 0.0 - 0.4 x10(3)/mcL Basophils % 0.3 % Basophils Abs 0.0 0.0 - 0.1 x10(3)/mcL Immature Gran % 0.90 % Marylin Gran Abs 0.13 (H) 0.00 - 0.04 x10(3)/mcL Gold Tube HOLD Result Value Ref Range Gold Hold Sample in lab. Blue Tube HOLD Result Value Ref Range Blue Hold Sample in lab. Body Fluid Culture, Aerobic Result Value Ref Range Gram Stain (A) Cytocentrifuge Gram Stain performed No Neutrophils seen. Rare Gram Positive Rods Results called to and read back by Rhonda Jolly Organism Gram Positive Rods (A) Basic Metabolic Panel (non-fasting) Result Value Ref Range Glucose Lvl 117 65 - 199 mg/dL BUN 14 10 - 20 mg/dL Creatinine 1.20 0.80 - 1.50 mg/dL Sodium 132 (L) 135 - 145 mmol/L Potassium 4.5 3.5 - 5.0 mmol/L Chloride 96 (L) 98 - 107 mmol/L CO2 22 22 - 31 mmol/L Anion Gap 14 5 - 15 mmol/L Calcium 8.5 8.5 - 10.5 mg/dL eGFR 62 >=60 mL/min/1.73 m?? eGFR 72 >=60 mL/min/1.73 m?? Hemogram Result Value Ref Range WBC 11.6 (H) 4.0 - 9.5 x10(3)/mcL RBC 4.32 (L) 4.58 - 5.54 x10(6)/mcL Hemoglobin 10.3 (L) 13.7 - 16.5 gm/dL Hematocrit 33.8 (L) 40.5 - 48.5 % MCV 78.2 (L) 82.9 - 93.1 fL MCH 23.8 (L) 27.5 - 32.1 pg MCHC 30.5 (L) 32.0 - 35.7 gm/dL Platelets 341 145 - 357 x10(3)/mcL RDWSD 47.8 (H) 36.0 - 45.0 fL RDWCV 16.6 (H) 11.4 - 13.8 % MPV 8.6 7.6 - 12.9 fL nRBC % Auto 0.0 % nRBC Abs Auto 0.000 0.000 - 0.000 x10(3)/mcL Differential, Automated Result Value Ref Range Neutrophils % 84.3 % Neutr Abs (ANC) 9.78 (H) 1.70 - 6.10 x10(3)/mcL Lymphocytes % 7.2 % Lymphocytes Abs 0.8 (L) 0.9 - 3.2 x10(3)/mcL Monocytes % 5.7 % Monocyte Abs 0.7 0.3 - 0.9 x10(3)/mcL Eosinophils % 1.7 % Eosinophils Abs 0.2 0.0 - 0.4 x10(3)/mcL Basophils % 0.5 % Basophils Abs 0.1 0.0 - 0.1 x10(3)/mcL Immature Gran % 0.60 % Marylin Gran Abs 0.07 (H) 0.00 - 0.04 x10(3)/mcL Diagnostics: CXR 10/28/2019 Decreased right-sided pleural fluid at the base, with air now present within the pleural space CXR 10/27/2019 Unchanged appearance to loculated RIGHT pleural fluid collections with a slight increase in the RIGHT lung base pleural fluid. Loss in the RIGHT lung. No pneumothorax. Pleurx catheter is in unchanged location. ?? Micro: Pleural Cx 10/28/2019: Preliminary with +gram positive rods Assessment: Alin Meek is a 69 y.o. male with stage IIIA lung adenocarcinoma and recurrent effusion s/p Pleurx placement no with concerns of clogging. Has received 1 cycle of tpa/dornase with great response.Continuing with second cycle today. Will re-evaluate with AM CXR. Plan: NEURO: tylenol for pain CV: home HTN meds, holding BLADE inhibitor PULM: Continue home inhalers, continue tpa/dornase today, AM CXR GI: Regular diet :LINDA FEK: Lytes PRN ID: Vanc, Zosyn, f/u pleural fluid cultures HEME: LINDA ENDO: LINDA PROPHYLAXIS: SQH DISPO: 4W, inpatient floor status TIARA Clarke 10/28/2019 Thoracic Surgery Service Pager [phone] documented in this encounter H&P Notes Jet Browne MD - 10/27/2019 5:[address] [facility] Department of Thoracic Surgery Inpatient Consultation Note [place] [phone] FAX: Patient Name: Alin Meek Patient : 1950 Patient Patient Location: ED13/ED13 This consultation request was made by: SOLO MCCABE Consulting thoracic surgery attending: Damon HPI: Alin Meek is a 69 y.o. male with PMHx significant for stage IIIA lung adenocarcinoma s/p R VATS pleural biopsies and pleurX catheter placement for recurrent pleural effusion with cytology showing atypical cells but no overt malingnancy and associated trapped lung. He presents to the ED with concern for clogged pleurX catheter. Prior to admission the patient was draining less fluid from his pleurx catheter and made the decision to drain his pleurx less frequently. Since then his pleurx has seemed to clog. tPA administration was performed in the office with 500ccs of output. ON interview the patient does endorse some fevers/chills this past week. SOB has not been above his baseline. Past Medical History: Patient Active Problem List [...] 2.78) performed by Stan Bernal MD at [facility] MAIN OR ? ? PRO INJECTION ANES AGENT &/ STEROID INTERCOSTAL NERVE EA ADDL LEVEL Right 09/05/2019 NERVE BLOCK, INTERCOSTAL NERVE, MULTIPLE (WRVU 1.68) performed by Stan Bernal MD at [facility] OR ??? PRO INSERTION INDWELLING TUNNELED PLEURAL CATHETER Right 09/05/2019 INSERTION INDWELLING PLEURAL CATHETER W\CUFF (WRVU 4.17) performed by Stan Bernal MD at [facility] OR ??? PRO THORACOSCOPY WITH BIOPSY OF PLEURA Right 09/05/2019 THORACOSCOPY; WITH BIOPSY(IES) OF PLEURA (WRVU 4.58) performed by Stan Bernal MD at [facility] OR ??? SUBTOTAL COLECTOMY 05/23/2016 ??? TOTAL KNEE ARTHROPLASTY Right ??? UMBILICAL HERNIA REPAIR Medications: No outpatient medications have been marked as taking for the 10/27/19 encounter (Hospital Encounter). Allergies: Allergies Allergen Reactions ??? Lisinopril Angioedema [...] Comment: for 8 months ??? 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 Financial resource strain: Not on file ??? Food insecurity Worry: Not on file Inability: Not on file ??? Transportation needs Medical: Not on file Non-medical: Not on file Tobacco Use ??? Smoking status: Former Smoker Packs/day: 2.00 Types: Cigarettes Start date: 1969 Last attempt to quit: 2016 Years since quittin.3 ??? Smokeless tobacco: Former User Types: Chew [...] file Gets together: Not on file Attends caodaism service: Not on file Active member of [...] Social History Narrative ??? Not on file Review of Systems: Negative except as above Vitals: Temp: [37.3 ??C (99.1 ??F)] Heart Rate: [107] Resp: [26] BP: (129)/(61) SpO2: [97 %] Heart Rate from SpO2: -- Wt & BMI By Encounter Date ED from 10/27/2019 in Emergency Department [facility] Office Visit from 10/21/2019 in Thoracic Surgery at [facility] [place] [place] Weight 136.1 kg (300 lb) 1 10/27/2019 1428 (!) 138.8 kg (306 lb) 1 10/21/2019 1035 Physical Exam: Gen: NAD, pleasant, sitting HEENT: normocephalic, atraumatic, EOMI, sclerae anicteric Neck: supple, trachea midline Card: RRR, no M/R/G appreciated Pulm: CTAB, no wheeze/ronchi/rales appreciated, non-labored breathing on Room air, *pleurx in place Abd: soft, NT, BS+ Ext: warm, dry, no edema Neuro: A&Ox3, CN II-XII grossly intact, nonfocal, conversant I/O: No intake/output data recorded. Labs: Recent Results (from the past 72 hour(s)) Blood Gas Venous Result Value Ref Range pH Ray 7.41 7.32 - 7.42 pCO2 Ray 39 (L) 41 - 51 mmHg pO2 Ray 34 25 - 40 mmHg HCO3 Ray 24.1 mmol/L BE Ray -0.6 mmol/L Hgb Blood Gas 11.9 (L) 13.7 - 16.5 gm/dL O2HB Ray 62.7 % COHB Ray 1.5 % METHB Ray 0.3 <=1.5 % Na Whole Blood 130 (L) 135 - 145 mmol/L K Whole Blood 4.4 3.5 - 5.0 mmol/L ICa Whole Blood 1.14 (L) 1.15 - 1.33 mmol/L CL Whole Blood 97 (L) 98 - 107 mmol/L Gluc Whole Bld 106 65 - 199 mg/dL Lactate WB 1.3 0.5 - 2.2 mmol/L BGas Source Venous Basic Metabolic Panel (non-fasting) Result Value Ref Range Glucose Lvl 102 65 - 199 mg/dL BUN 14 10 - 20 mg/dL Creatinine 1.04 0.80 - 1.50 mg/dL Sodium 129 (L) 135 - 145 mmol/L Potassium 4.4 3.5 - 5.0 mmol/L Chloride 94 (L) 98 - 107 mmol/L CO2 24 22 - 31 mmol/L Anion Gap 11 5 - 15 mmol/L Calcium 9.1 8.5 - 10.5 mg/dL eGFR 73 >=60 mL/min/1.73 m?? eGFR 85 >=60 mL/min/1.73 m?? Hemogram Result Value Ref Range WBC 15.2 (H) 4.0 - 9.5 x10(3)/mcL RBC 4.44 (L) 4.58 - 5.54 x10(6)/mcL Hemoglobin 10.8 (L) 13.7 - 16.5 gm/dL Hematocrit 34.4 (L) 40.5 - 48.5 % MCV 77.5 (L) 82.9 - 93.1 fL MCH 24.3 (L) 27.5 - 32.1 pg MCHC 31.4 (L) 32.0 - 35.7 gm/dL Platelets 357 145 - 357 x10(3)/mcL RDWSD 46.6 (H) 36.0 - 45.0 fL RDWCV 16.5 (H) 11.4 - 13.8 % MPV 8.7 7.6 - 12.9 fL nRBC % Auto 0.0 % nRBC Abs Auto 0.000 0.000 - 0.000 x10(3)/mcL Differential, Automated Result Value Ref Range Neutrophils % 84.1 % Neutr Abs (ANC) 12.78 (H) 1.70 - 6.10 x10(3)/mcL Lymphocytes % 8.0 % Lymphocytes Abs 1.2 0.9 - 3.2 x10(3)/mcL Monocytes % 6.2 % Monocyte Abs 0.9 0.3 - 0.9 x10(3)/mcL Eosinophils % 0.5 % Eosinophils Abs 0.1 0.0 - 0.4 x10(3)/mcL Basophils % 0.3 % Basophils Abs 0.0 0.0 - 0.1 x10(3)/mcL Immature Gran % 0.90 % Marylin Gran Abs 0.13 (H) 0.00 - 0.04 x10(3)/mcL Gold Tube HOLD Result Value Ref Range Gold Hold Sample in lab. Blue Tube HOLD Result Value Ref Range Blue Hold Sample in lab. Diagnostics: CXR 10/27/19 Unchanged appearance to loculated RIGHT pleural fluid collections with a slight increase in the RIGHT lung base pleural fluid. Loss in the RIGHT lung. No pneumothorax. Pleurx catheter is in unchanged location. Micro: None Assessment: Alin Meek is a 69 y.o. male with PMHx significant for stage IIIA lung cancer c/b recurrent effusion and trapped lung. He had good response to tPA administration in the office. To that end we will do 2 cycles of tPA/dornase and decide if the patient needs to be taken to the OR based on output and imaging. Plan: NEURO: tylenol for pain CV: home HTN meds, holding BLADE inhibitor PULM: Continue home inhalers, start 2 cycles of tPA dornase GI: Regular diet, NPO at MN :LINDA FEK: Lytes PRN ID: Soila Harrington HEME: LINDA ENDO: LINDA PROPHYLAXIS: SQH DISPO: 4W, inpatient floor status All plans formulated in discussion with and directed by attending thoracic surgeon Dr. Jose. Jet Browne MD 10/27/2019 Thoracic Surgery Service Pager [phone] documented in this encounter Procedure Notes Kym Amaral RN - 11/01/2019 11:27 AM EDTAssociated Order(s): PLACE PICC LINE: CONTACT VASCULAR ACCESS PICC/Midline Insertion Procedure Note Indications: Anti-infective and Access This insertion was not to replace a malfunctioning catheter. This insertion was not due to a suspected line-associated infection. Location of Procedure: X-Ray Room 11 Risks and Benefits: The risks and benefits of this procedure were reviewed and informed consent was obtained obtained. Time Out: Prior to the start of the procedure, the patient's identity, intended procedure, site/side, correct patient positioning and presence of the site clement was confirmed as applicable. The medical history and chart were reviewed to rule out potential contraindications to the planned procedure. Hand Hygiene: The set up and lay out inspector did perform hand hygiene prior to line insertion. Catheter type: PICC Lot number: [id number] Procedure Technique: Skin was prepped with chlorhexidine. Skin preparation agent was completely dry at the time of first skin puncture. The following barrier precaution methods were used:large sterile drape, maske/eye shield, large sterile gown, sterile gloves and cap. 2 ml of 1% Lidocaine was used for skin wheal. Ultrasound was used for guidance. Radiographic contrast agent was not injected for vein identification. Procedure Details: Order received for catheter placement. A 4 Fr. single lumen Bard Power catheter was placed into the right basilic vein over a 0.018 inch guidewire using modified seldinger technique and fluoroscopy. Arm circumference was 43 cm at 2 cm above the insertion site. Final catheter length (with trimming): 45 cm Internal: 45 cm External: 0 cm Tip in SVC per DR MELENDREZ. The line was not placed over a guidewire. Post Procedure: Diagnosis: EMPYEMA Blood return noted on aspiration of line after placement confirmed. 5 mls of normal saline infused free flowing to gravity via PICC after insertion. Sterile dressing applied: CHG Impregnated Tegaderm. Findings: The patient did tolerate the procedure well. No Complications. Procedure Comments: KYM AMARAL RN 11/01/2019 documented in this encounter ED Notes Solo Mccabe MD - 10/27/2019 5:38 PM EDT Brief Attending Note I cared for the patient with the resident physician. Please see Dr. Cheng's note, associated withthe encounter, for more details. HPI: Alin Meek is a 69 y.o., with a past medical history of lung cancer now with Pleurx catheter placed in August, who presents to the ED with a chief complaint of dyspnea. Notably the patient comes from outpatient clinic with the same chief complaint, had a chest x-ray which demonstrated a large right pleural effusion. The patient notes decreased drainage from his Pleurx over the pastseveral days. Notably the patient had TPA flushed into his Pleurx on 10/21/2019, with improvement in drainage however he states it is now not draining well again. He also reports intermittent fever and chills. He states that his dyspnea is improved when lying on his right side. It is worse when sitting up or lying flat. He reports associated cough productive of sputum without hemoptysis. He reports mild congestion. No cardiac chest pain or palpitations. No nausea or vomiting. No changes to p.o. He denies a history of kidney failure or renal failure. No VTE history and the patient is not anticoagulated. He denies any new extremity edema or rash. No history of diabetes. No history of heart failure. ROS: Pertinent positives and negatives are included in the history of present illness, otherwise 10 systems are reviewed and negative Allergies: Allergies Allergen Reactions ??? Lisinopril Angioedema Lips got swollen Past Medical, Past Surgical, Family/Social History: reviewed in chart. Patient Vitals for the past 8 hrs: BP Temp Temp src Pulse Resp SpO2 Weight 10/27/19 1428 129/61 37.3 ??C (99.1 ??F) Oral (!) 107 26 97 % 136.1 kg (300 lb) Gen: Annette ill-appearing but nontoxic. HENT: atraumatic, OP clear, mmm Pulm: Decreased breath sounds on the right, mildly increased respiratory effort, most notable after moving from supine to sitting. Card: Tachycardic, regular rhythm. Abd: soft, nt. Well-heeled midline abdominal scar. Skin: warm and dry. X catheter noted at base of right chest wall with clean dry dressing in place and no surrounding erythema. Neuro: speech fluent, no obvious deficit MS: 1+ pitting edema in his lower extremities. Psych: Normal mood Bedside Ultrasound During ED Visit: Point of Care Emergency Department Limited Thoracic Ultrasound Indication: Shortness of breath Procedure Detail: Using a Transducers: Curvilinear transducer, the bilateral hemithoraces were evaluated independently at three positions: anterior-superior, anterior-inferior, lateral-posterior. Therewas Presence of lung sliding in the bilateral hemithorax. There was Presence of pleural effusion right hemithorax. There was Absence of B-lines bilateral hemithorax. Other findings or limitations: None Impression: Point of care limited thoracic ultrasound without presence of bilateral pneumothorax, with evidence of pleural effusion, without evidence of interstitial syndrome. This study was performed by an ultrasound credentialed emergency physician. These images were archived digitally and I independently interpreted the images at the bedside and agree with the documented results. Assessment: 69 y.o. male presenting with large pleural effusion and his right thorax and decreased drainage from his Pleurx catheter as well as infectious symptoms including fever and chills at home. Lizandro primarily concerned about the possibility of infected pleural effusion. The patient arrival here was done by cardiothoracic surgery who will be admitting to their service. Basic screening labs were sent from triage. We will discuss antibiosis with cardiothoracics but I would have a low threshold for giving her first dose of antibiotics here given new leukocytosis, dyspnea and fevers at home. Patient will be admitted to cardiothoracic surgery for further management. ED Course as of Oct 26 2220 Mon October 27, 2019 182 Patient admitted to thoracic surgery. We will start vancomycin and Zosyn. Krauthamer, [place] M, MD 10/27/194 Callie Lockhart RN - 10/27/2019 4:27 PM EDT IV attempt x1 and unsuccessful but labs drawn. Pt to xray at this time and will attempt iv upon return Mau Velazquez MD - 10/27/2019 4:04 PM EDT ED Resident Note Alin Meek is an 69 y.o. male who presents to the ED with: Chief Complaint Patient presents with ??? Shortness of Breath I saw this patient on 10/27/2019. History is from patient and chart review. HPI Alin Meek is a 69 y.o. male with history of adenocarcinoma in R lung, COPD, morbid obesity, HTN who presents to the Emergency Department with SOB and c/f blocked R pleural drainage catheter. Says he was told come down here by Dr. Jose because he has fluid around his R lung. Was seen at [facility] earlier today for regular checkup, got surveillance CXR leading to his phone calling telling him to come in. Had his R pleurex catheter flushed with tPA for possible plugging last . Says it drained well last and but has slowed down drainage considerably since then. Unsure if breathing is worse than last Sunday but states it's sure not getting any better. Is extremely SOB withexertion. Has been having some subjective chills recently at home. Had temp to 100 and something earlier today. No new cough. No chest pain. No new BLEDSOE, blurry vision. Good PO intake. No constipation/diarrhea/dysuria. PMH: Past Medical History: Diagnosis Date ??? Adenocarcinoma, lung, right ??? COPD (chronic obstructive pulmonary disease) ??? DJD (degenerative joint disease) ??? HTN (hypertension), benign ??? PAC (premature atrial contraction) SocHx: Social History Socioeconomic History ??? Marital status: Spouse name: Stephanie ??? Number of children: None ??? Years of education: None ??? Highest education level: None Occupational History ??? Occupation: [employer] Comment: for 8 months ??? 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 Financial resource strain: None ??? Food insecurity Worry: None Inability: None ??? Transportation needs Medical: None Non-medical: None Tobacco Use ??? Smoking status: Former Smoker Packs/day: 2.00 Types: Cigarettes Start date: 1969 Last attempt to quit: 2016 Years since quittin.3 ??? Smokeless tobacco: Former User Types: Chew Quit date: 1974 ??? Tobacco comment: 2016 quit Substance and Sexual Activity ??? Alcohol use: No Comment: usd to drink heavily ( 12 pck/day) quit 2015 ??? Drug use: No ??? Sexual activity: None Lifestyle ??? Physical activity Days per week: None Minutes per session: None ??? Stress: None Relationships ??? Social connections Talks on phone: None Gets together: None Attends caodaism service: None Active member of club or organization: None Attends meetings of clubs or organizations: None Relationship status: None ??? Intimate partner violence Fear of current or ex partner: None Emotionally abused: None Physically abused: None Forced sexual activity: None Other Topics Concern ??? None Social History Narrative ??? None Review of Systems: A 10 point review of systems was performed and was negative except as noted in the HPI. Physical Exam: Temp: [37.3 ??C (99.1 ??F)-37.8 ??C (100 ??F)] Heart Rate: [95-107] Resp: [19-26] BP: (104-129)/(56-87) SpO2: [92 %-97 %] Heart Rate from SpO2: [84 bpm-97 bpm] General: AAOx4, in NAD HEENT: normocephalic/atraumatic, EOMI Cardiovascular: RRR Pulmonary: Diminished breath sounds and crackles to R lung. Abdomen: Pleurex catheter covered with bandage to R side, not hooked to connector. Otherwise soft, nondistended, no TTP, no rebound/guarding Skin: [place], warm, dry Extremities: No deformities. Neuro: No grossly obvious deficits. Psych: normal mood and thought pattern. Assessment and Plan: 69 y.o. male with history of adenoCa in R lung, COPD, morbid obesity, HTN presents with SOB and c/f blocked R pleural drainage catheter. Given he had chest x-ray at outside hospital this morning and was called by thoracic surgery attending and told to come to ED for probable admission I have low concern for other acute pathology. My exam is consistent with right-sided pleural effusion. I am reassuredhe is satting 97% on room air on my initial assessment and does not require supplemental oxygen or other acute resuscitation in the ED. It is possible the patient has infection given reports of fever at home and subjective chills and leukocytosis. I will start IV antibiotics at this time for further ma nagement of possible infection. I will consult thoracic surgery for further evaluation and management. Other management decisions discussed below in the ED course section per labs and discussion with thoracic. ED Course: - Patient seen under the supervision of the attending physician. - Medications, allergies, and past medical history reviewed. Recent Results (from the past 24 hour(s)) Blood Gas Venous Result Value Ref Range pH Ray 7.41 7.32 - 7.42 pCO2 Ray 39 (L) 41 - 51 mmHg pO2 Ray 34 25 - 40 mmHg HCO3 Ray 24.1 mmol/L BE Ray -0.6 mmol/L Hgb Blood Gas 11.9 (L) 13.7 - 16.5 gm/dL O2HB Ray 62.7 % COHB Ray 1.5 % METHB Ray 0.3 <=1.5 % Na Whole Blood 130 (L) 135 - 145 mmol/L K Whole Blood 4.4 3.5 - 5.0 mmol/L ICa Whole Blood 1.14 (L) 1.15 - 1.33 mmol/L CL Whole Blood 97 (L) 98 - 107 mmol/L Gluc Whole Bld 106 65 - 199 mg/dL Lactate WB 1.3 0.5 - 2.2 mmol/L BGas Source Venous Basic Metabolic Panel (non-fasting) Result Value Ref Range Glucose Lvl 102 65 - 199 mg/dL BUN 14 10 - 20 mg/dL Creatinine 1.04 0.80 - 1.50 mg/dL Sodium 129 (L) 135 - 145 mmol/L Potassium 4.4 3.5 - 5.0 mmol/L Chloride 94 (L) 98 - 107 mmol/L CO2 24 22 - 31 mmol/L Anion Gap 11 5 - 15 mmol/L Calcium 9.1 8.5 - 10.5 mg/dL eGFR 73 >=60 mL/min/1.73 m?? eGFR 85 >=60 mL/min/1.73 m?? Troponin Result Value Ref Range Troponin-T <0.01 0.00 - 0.00 ng/mL Hemogram Result Value Ref Range WBC 15.2 (H) 4.0 - 9.5 x10(3)/mcL RBC 4.44 (L) 4.58 - 5.54 x10(6)/mcL Hemoglobin 10.8 (L) 13.7 - 16.5 gm/dL Hematocrit 34.4 (L) 40.5 - 48.5 % MCV 77.5 (L) 82.9 - 93.1 fL MCH 24.3 (L) 27.5 - 32.1 pg MCHC 31.4 (L) 32.0 - 35.7 gm/dL Platelets 357 145 - 357 x10(3)/mcL RDWSD 46.6 (H) 36.0 - 45.0 fL RDWCV 16.5 (H) 11.4 - 13.8 % MPV 8.7 7.6 - 12.9 fL nRBC % Auto 0.0 % nRBC Abs Auto 0.000 0.000 - 0.000 x10(3)/mcL Differential, Automated Result Value Ref Range Neutrophils % 84.1 % Neutr Abs (ANC) 12.78 (H) 1.70 - 6.10 x10(3)/mcL Lymphocytes % 8.0 % Lymphocytes Abs 1.2 0.9 - 3.2 x10(3)/mcL Monocytes % 6.2 % Monocyte Abs 0.9 0.3 - 0.9 x10(3)/mcL Eosinophils % 0.5 % Eosinophils Abs 0.1 0.0 - 0.4 x10(3)/mcL Basophils % 0.3 % Basophils Abs 0.0 0.0 - 0.1 x10(3)/mcL Immature Gran % 0.90 % Marylin Gran Abs 0.13 (H) 0.00 - 0.04 x10(3)/mcL Gold Tube HOLD Result Value Ref Range Gold Hold Sample in lab. Blue Tube HOLD Result Value Ref Range Blue Hold Sample in lab. ED Course as of Oct 26 2226 Mon October 27, 2019 1648 Thoracic surgery paged Thoracic surgery evaluated the patient. They state they will admit the patient to their service for further management. Starting IV antibiotics here. Patient remained stable throughout his time in the ED. Imaging: - XR Chest PA & Lateral (Generic) Final Result Unchanged appearance to loculated RIGHT pleural fluid collections with a slight increase in the RIGHT lung base pleural fluid. Loss in the RIGHT lung. No pneumothorax. Pleurx catheter is in unchanged location. Thank you for letting us participate in the care of this patient. For questions regarding this report, please contact the number below. Consults: - Thoracic surgery as above Medications given: Medications sodium chloride 0.9 % (flush) flush 5 mL (has no administration in time range) sodium chloride 0.9 % (flush) flush 5-20 mL (has no administration in time range) lidocaine (XYLOCAINE) 10 mg/mL (1 %) injection 3 mg (has no administration in time range) senna (Senokot) tablet 17.2 mg (has no administration in time range) docusate sodium (Colace) capsule 100 mg (has no administration in time range) heparin (Porcine) subcutaneous injection 5,000 Units (has no administration in time range) alteplase (CATHFLO) 10 mg in sodium chloride 0.9% 30 mL (has no administration in time range) And dornase alpha (PULMOZYME) 5 mg in sodium chloride 0.9% 30 mL (has no administration in time range) ipratropium-albuteroL (DUONEB) 0.5 mg-3 mg(2.5 mg base)/3 mL nebulizer solution 3 mL (has no administration in time range) piperacillin-tazobactam (ZOSYN) 3.375 g vial attach to sodium chloride 0.9% 50 mL Mini-Bag Plus (hasno administration in time range) vancomycin 2 g in sodium chloride 0.9% 500 mL (2 g Intravenous New Bag 10/27/19 9517) piperacillin-tazobactam (ZOSYN) 4.5 g vial attach to sodium chloride 0.9% 100 mL Mini-Bag Plus (0 g Intravenous Stopped 10/27/19 6229) Patient admitted to thoracic surgery for further evaluation and management. I performed the following procedure(s): adult medical resuscitation. Mau Velazquez MD Resident 10/27/192227 Associated attestation - Solo Mccabe MD - 10/27/2019 10:41 PM EDT The patient was seen in conjunction with Dr. Cheng, the resident physician. I have independently performed the benito portions of the history and physical exam. I have reviewed the nursing notes, vitalsigns, and all diagnostic studies personally including labs, imaging studies and EKGs. I have discussed the details of the case with the resident and agree with the assessment and plan as described in the resident note above unless noted otherwise below as well as filed in my separately written note. Tamir Mascorro PA - 10/27/2019 2:25 PM EDT 69 y/o M with hx of adenocarcinoma in the right lung, COPD, Morbid obesity, and HTN presents with shortness of breath. He has an indwelling pleural catheter in place which has not been draining like itusually does. He has had fevers and chills. Denies any chest pain. Patient in no distress in triage. Basic labs ordered including blood cultures given hx of fevers. Tamir Mascorro PA 10/27/19 1431 documented in this encounter Miscellaneous Notes Plan of Care - Diana Reddy RN - 11/03/2019 3:38 AM EDT Problem: Patient Care Overview Goal: Plan of Care Review Outcome: Ongoing (Interventions Implemented as Appropriate) 10/28/19 1632 11/02/192045 Coping/Psychosocial Plan Of Care Reviewed With -- patient Plan of Care Review Progress progress toward functional goals as expected -- OUTCOME EVALUATION NOTE: OUTCOME SUMMARY: Pt AxO x 4. VSS.RA. Denies any pain overnight. Right pigtail to -20 suction maintained with low output. Pt voided adequately in urinal.IV vancomycin Q12hr continued. PLAN MOVING FORWARD: Encourage mobility INDIVIDUALIZED FALL PREVENTION INTERVENTIONS: Patient-specific fall risk factors per assessment: [current deficits]: Generalized weakness. Assistance [level of assistance required for transfers and ambulation]: 1 assist with cane Supervision [direct monitoring required during toileting and ADLs]: Hands on. Surveillance [continuous indirect monitoring]: Purposeful rounding done, call padilla within reach, lights adjusted Patient-specific fall prevention interventions for sensory deficits provided, if applicable: [X] N/A CPG GOAL OUTCOME EVALUATION: Ongoing Goal: Fall Prevention-Safe Patient Handling Outcome: Ongoing (Interventions Implemented as Appropriate) 11/02/19 0800 11/02/192045 Daily Care Interventions Self-Care Promotion independence encouraged;BADL personal objects within reach -- Bell Fall Risk History of Falling -- 0 Secondary Diagnosis -- 15 Ambulatory Aids -- 15 Intravenous Therapy/Heparin/Saline Lock -- 20 Gait/Transferring -- 10 Mental Status -- 0 Score -- 60 OTHER Bell Fall Risk -- High Restraint Interventions Safety Promotion/Fall Prevention -- activity supervised Positioning Body Position -- independent Activity Activity Type -- activity adjusted per tolerance Activity Assistance Provided -- assistance, 1 person Assistive Device Utilized -- cane Goal: Infection Control Outcome: Ongoing (Interventions Implemented as Appropriate) 11/02/192045 Safety Interventions Isolation Precautions standard precautions maintained Infection Prevention rest/sleep promoted Coping Strategies Supportive Measures active listening utilized Goal: Discharge Needs Assessment Outcome: Ongoing (Interventions Implemented as Appropriate) 10/28/19 160 Discharge Needs Assessment Concerns To Be Addressed no discharge needs identified Readmission Within The Last 30 Days previous discharge plan unsuccessful Provider Choice List(s) Given no Equipment Needed After Discharge none Discharge Disposition still a patient Current Health Anticipated Changes Related to Illness none Activity/Self Care Review of Systems Equipment Currently Used at Home none Living Environment Transportation Available family or friend will provide Goal: Interdisciplinary Rounds/Family Conf Outcome: Ongoing (Interventions Implemented as Appropriate) 10/28/19 160 Interdisciplinary Rounds/Family Conf Participants family;nursing;patient;pharmacy;physician;bottle caser Plan of Care - Cheyenne Downs RN - 11/02/2019 6:36 PM EDT Problem: Patient Care Overview Goal: Interdisciplinary Rounds/Family Conf Outcome: Ongoing (Interventions Implemented as Appropriate) 10/28/19 1606 Interdisciplinary Rounds/Family Conf Participants family;nursing;patient;pharmacy;physician;bottle caser OUTCOME EVALUATION NOTE: OUTCOME SUMMARY: Pierre has had a pretty good day, he was a little disappointed to find out he was not going home todaybut is excited to leave tomorrow. No c/o pain, VSS, CT in place, dressing cdi. His vanc trough this morning was critical at 23.4, his AM vanc dose was held and the next dose was changed to 1g. He has asingle lumen PICC in place to go home with on Vanco. He refused all walks today, will continue to monitor. PLAN MOVING FORWARD: Encourage activity, DC tomorrow INDIVIDUALIZED FALL PREVENTION INTERVENTIONS: Patient-specific fall risk factors per assessment: [current deficits]: Generalized weakness Assistance [level of assistance required for transfers and ambulation]: SBA with cane Supervision [direct monitoring required during toileting and ADLs]: independent Surveillance [continuous indirect monitoring]: Call padilla within reach, room near unit station, [facility] Patient-specific fall prevention interventions for sensory deficits provided, if applicable: no CPG GOAL OUTCOME EVALUATION: Consult Note - Monty Mora, [facility] - 11/02/2019 9:48 AM EDT Clinical Pharmacist Note-Vanc Alin Meek [id number] 1950 Alin Meek is a 69 y.o. male is being monitored due to antibiotic therapy which includes intravenous vancomycin. Regimen: Vancomycin 1500 mg every 12 hours Indication: empiric coverage of empyema infection Initiation Date:10/27/19 Day of Therapy:7 Targeted Goal Range: 15 - 20 mcg/mL Pharmacokinetic information: Wt Readings from Last 1 Encounters: 11/02/19 133.8 kg (295 lb) Ht Readings from Last 1 Encounters: 10/21/19 182 cm (5' 11.65) Labs: Vancomycin: Vanc Trough (mg/L) Date Value 11/02/2019 23.9 (CRIT) Creatinine clearance: Creatinine (mg/dL) Date Value 11/01/2019 1.11 Estimated Half-Life (T1/2) = 11.2 hours: Estimated Volume of distribution (Vd) = 66.9 Liters Recommendations: Dosing recommendations: ?? Based on this information a dose of 1000 mg every 12 hours, to start at 1300 (time) on 11/02/2019should achieve an estimated trough level of 15 - 20 mcg/mL. Monitoring recommendations: ?? A new steady state level should be achieved after 4 half-lives. I suggest rechecking a vancomycintrough level (30 minutes prior to a scheduled dose) at 0030 (time) on 11/04/2019. We will continue to monitor the patient as long as he remains on vancomycin therapy. Please watch SCr, BUN and fluid status closely. Please page the care area pharmacist with any questions you may have. Alternately, during off-hours you may call [phone] to contact a pharmacist. Monty Mora RPH Pager [phone] Plan of Care - Kym Amaral RN - 11/01/2019 12:29 PM EDT Problem: Health Knowledge, Opportunity to Enhance (Adult,NICU,,Obstetrics,Pediatric) Goal: Knowledgeable about Health Subject/Topic Patient will demonstrate the desired outcomes by discharge/transition of care. Peripherally Inserted Central Catheter (PICC) Teaching Sheet Peripherally inserted central catheters (icbc-wy-mjod) (PICC) are used when you need IV (intravenous) medicines and fluids. A catheter is a small flexible plastic tube. The catheter is put in through avein under your skin. A vein is a tube inside your body that carries blood from the body to the heart. The catheter is usually put into a vein on the inside of your upper arm. Then it is threaded up this vein and ends in the blood vessel near your heart. The PICC catheter may be used for taking blood for laboratory tests. You may also get IV fluids and medicines quickly and easily. Having the catheter may keep your arm from being stuck many times with a needle. The catheter will have 1-3 small tails (tubes) coming from your arm where the catheter was put in. Why do I need a PICC line or midline catheter? PICC lines are used for extermination supervisor treatments. PICC lines may be used for up to a year. They are often put in to give you IV medicines at home. You may need a PICC catheter because caregivers cannotuse smaller veins in your body. Smaller veins may be damaged, or they may have poor blood flow. ??? Catheters are also used in case of emergency when you would need medicines or fluids very quickly. ??? The following are medicines and treatments you may get when you have a PICC line. ? Antibiotics. These are medicines to prevent infection. ? Frequent blood sample collection. ? IV medicines that would make your smaller veins sore or damaged. ? Receiving IV fluids for a long period of time. ? Pain medicine. ? Total Parenteral Nutrition: This is also called TPN. TPN is a special liquid food that goes directly into your veins. ? Blood ? Chemotherapy (Medicine for cancer) What are the benefits of having a PICC line put in? Having a PICC line may keep your arm from being stuck many times with a needle to draw blood or start an IV (intravenous catheter) . ??? Through a PICC catheter, you may have blood taken for tests. You may also get IV fluids and medicines quickly and easily. ??? Small veins can be damaged or irritated by certain drugs or nutritional solutions. A PICC line helps to decrease vein irritation from antibiotics, IV pain drugs, or IV cancer drugs. ??? A PICC line can be left in place when you go home. If you go home with a PICC line in place, home care can be set up via the nurse [address] Liaison to help you. What are possible complications of having a PICC line put in? Some possible complications are: ??? bruising, swelling, or infection in the arm with the PICC line ??? mal-positioned catheter (catheter tip in wrong place) ??? occlusion (blocked catheter) ??? mechanical phlebitis (vein irritation) and thrombosis (clot) Your doctor is the person you should talk to if you have questions about what would happen if you donot choose to have a PICC line put in. Your doctor can talk to you about other choices you may have. What should I expect when it is put in? A written consent that gives your ok to have it put in needs to be signed after you understand that you are going to have a PICC put in, and all your questions about the procedure have been answered toyour satisfaction. This is a safety feature that the hospital practices before doing procedures. An experienced nurse who has been through special training and education will be putting this catheter in. The procedure is done in a specially equipped room in Interventional Radiology on the third floor. The PICC nurse will first talk to you about any questions that you may have. The PICC nurse willexplain to you what is going to be done before starting. Once you arrive in the procedure room in Interventional Radiology, the PICC nurse will then set up for the procedure. She will unwrap the sterile kit and open the needed supplies. A gown and mask and gloves will be worn while putting it in. An ultrasound machine will be used to help guide the catheterin the right place. This machine uses a handle with sound waves to find the vein. The area on your arm where the catheter will be put in is then numbed with a medicine put under yourskin with a tiny needle. The nurse will then put in the catheter using fluoroscopy (a type of x-ray)as a guide. Once the catheter is in your vein, it will be threaded up your arm to the area before your heart. While it is being threaded, you may be asked to turn your head. When the catheter is in, the nurse will place a small dressing on the site along with a little lea which will help keep the catheter in place. After the procedure is done, a radiologist (doctor in x-ray department) will look at your x-ray to make sure that the end of the catheter is in proper position to give your fluids and/or medications. What should I expect in the care of my PICC? A dressing that is specially made to prevent infections will be put on. After this, the dressing will only be changed once a week unless it needs it sooner. If you go home with the catheter in, you may take a shower as long as you keep the site dry. You fermin this by wearing a specially fitted PICC protector that will be provided to you before discharge from the hospital. The dressing at the site must be kept clean and dry. It is important that you watch for signs of infection at the site. Your healthcare provider should be notified if these occur: ??? Redness ??? Swelling ??? Pus ??? Pain at the site Other reasons to notify your healthcare provider are: ??? Catheter becomes partially or totally removed ??? Unable to infuse medication/fluid ??? Unable to draw back blood from the catheter. This may be an early sign that a clot is forming onthe end of the catheter. If this occurs, a medicine called Cathflo may be used to dissolve this clot. Ask the PICC nurse or your doctor, any questions you may have so you feel secure in consenting to having a PICC line. References: Vascular Access Device Selection, Insertion, and Management, [employer] 03/22. A Review of the Efficacy, Safety, Use, and Administration of Cathflo, [employer] 2005 Plan of Care - Laura Harvey RN - 11/01/2019 3:51 AM EDT Problem: Patient Care Overview Goal: Plan of Care Review Outcome: Ongoing (Interventions Implemented as Appropriate) 11/01/19 0347 Coping/Psychosocial Plan Of Care Reviewed With patient OUTCOME EVALUATION NOTE: OUTCOME SUMMARY: Denies pain, Vancomycin changed to 1.5 mg per trough result. Chest tube to -20 suction. Able to sleep at intervals. ?? PLAN MOVING FORWARD: Continue with antibiotic. INDIVIDUALIZED FALL PREVENTION INTERVENTIONS: Patient-specific fall risk factors per assessment: [current deficits]: Mobility aid at home,needs assistance getting in and out of bed or chair ?? Assistance [level of assistance required for transfers and ambulation]: Cane, Non-skid slippers, stand by. Supervision [direct monitoring required during toileting and ADLs]: Arms reach . Surveillance [continuous indirect monitoring]: Purposeful rounding; call light in reach,Bed/chair alarm Patient-specific fall prevention interventions for sensory deficits provided, if applicable: Glasses,Lighting adjusted for safety. CPG GOAL OUTCOME EVALUATION: ?? Consult Note - Frances Sanchez [facility] - 10/31/2019 7:41 PM EDT Clinical Pharmacist Note-Vanc Alin Meek [id number] 1950 Alin Meek is a 69 y.o. male is being monitored due to antibiotic therapy which includes intravenous vancomycin. Regimen: Vancomycin 2000 mg every 12 hours Indication: empiric coverage of empyema infection Initiation Date:10/27/19 Day of Therapy:5 Targeted Goal Range: 15 - 20 mcg/mL Pharmacokinetic information: Wt Readings from Last 1 Encounters: 10/31/19 134.8 kg (297 lb 3.2 oz) Ht Readings from Last 1 Encounters: 10/21/19 182 cm (5' 11.65) Labs: Vancomycin: Vanc Trough (mg/L) Date Value 10/31/2019 18.1 Creatinine clearance: Creatinine (mg/dL) Date Value 10/31/2019 1.06 Recommendations: Dosing recommendations: ?? Based on this information a dose of 1500 mg every 12 hours, to start at next scheduled dose should achieve an estimated trough level of 15 - 20 mcg/mL. Monitoring recommendations: ?? A new steady state level should be achieved after 4 half-lives. I suggest rechecking a vancomycintrough level (30 minutes prior to a scheduled dose) at 0830 (time) on 11/02/19. We will continue to monitor the patient as long as he remains on vancomycin therapy. Please watch SCr, BUN and fluid status closely. Please page the care area pharmacist with any questions you may have. Alternately, during off-hours you may call [phone] to contact a pharmacist. Frances Sanchez RPH Plan of Care - Moon Mix RN - 10/31/2019 6:45 PM EDT OUTCOME EVALUATION NOTE: OUTCOME SUMMARY: Pierre had a good day. A/OX4; pleasant. VSS, afebrile on RA. Pt able to ambulate in callaway X2. Pt sent for CT to monitor air leak. Pain well controlled w/ scheduled meds. Pt using IS independently. Encouraged to sit in chair. Pigtail remains in place to LCWS @ -20. IV abx continued. Will continue to monitor. PLAN MOVING FORWARD: IV abx. Encourage ambulation. Encourage IS. Up to chair. INDIVIDUALIZED FALL PREVENTION INTERVENTIONS: Patient-specific fall risk factors per assessment: [current deficits]: Lines, drains, unfamiliar environment. Assistance [level of assistance required for transfers and ambulation]: SBA w/ cane Supervision [direct monitoring required during toileting and ADLs]: Arms reach Surveillance [continuous indirect monitoring]: Purposeful hourly rounding, call padilla in reach, belongings in reach. Patient-specific fall prevention interventions for sensory deficits provided, if applicable: [X] N/A CPG GOAL OUTCOME EVALUATION: Ongoing Consult Note - Rogerio Cuellar RPH - 10/31/2019 9:09 AM EDT Clinical Pharmacist Note-Vancomycin Alin Meek [id number] 1950 Alin Meek is a 69 y.o. male is being monitored due to antibiotic therapy which includes intravenous vancomycin. Regimen: Vancomycin 2000 mg every 12 hours Targeted Goal Range: 15 - 20 mcg/mL Pharmacokinetic information: Wt Readings from Last 1 Encounters: 10/31/19 134.8 kg (297 lb 3.2 oz) Ht Readings from Last 1 Encounters: 10/21/19 182 cm (5' 11.65) Labs: Vancomycin: Vanc Trough (mg/L) Date Value 10/31/2019 24.8 (CRIT) Drawn appropriately Creatinine clearance: Creatinine (mg/dL) Date Value 10/31/2019 1.06 Recommendations: Dosing recommendations: ?? Patient received ~ 750 mg of his AM vancomcyin dose before level resulted. ?? Based on this information, hold vancomycin and recheck a level tonight at 18:00. We will continue to monitor the patient as long as he remains on vancomycin therapy. Please watch SCr, BUN and fluid status closely. Please page the care area pharmacist with any questions you may have. Alternately, during off-hours you may call [phone] to contact a pharmacist. ROGERIO CUELLAR RPH Pager [phone] Plan of Care - Moon Mix RN - 10/30/2019 2:37 PM EDT OUTCOME EVALUATION NOTE: OUTCOME SUMMARY: Pierre had a good day. A/OX4; VSS, afebrile on RA. Pigtail remains in place. Fibrinolytic therapy continued; admin by MD per protocol. Pain well controlled w/ scheduled Tylenol. AUOP; yellow. BMX1; large, soft and brown. Pigtail drsg CDI. Pt able to ambulate in callaway w/ cane X 3. Pt using IS. Will continue to monitor. PLAN MOVING FORWARD: Fibrinolytic therapy. Pain management. Encourage IS. Encourage ambulation. INDIVIDUALIZED FALL PREVENTION INTERVENTIONS: Patient-specific fall risk factors per assessment: [current deficits]: Lines, drains, weakness. Assistance [level of assistance required for transfers and ambulation]: 1A w/ cane Supervision [direct monitoring required during toileting and ADLs]: Arms reach Surveillance [continuous indirect monitoring]: Purposeful hourly rounding, call padilla in reach, belongings in reach. Patient-specific fall prevention interventions for sensory deficits provided, if applicable: [X] N/A CPG GOAL OUTCOME EVALUATION: Ongoing Plan of Care - Moon Mix RN - 10/29/2019 3:10 PM EDT Problem: Patient Care Overview Goal: Plan of Care Review Outcome: Ongoing (Interventions Implemented as Appropriate) 10/28/19 1632 10/29/19 0834 Coping/Psychosocial Plan Of Care Reviewed With -- patient Plan of Care Review Progress progress toward functional goals as expected -- OUTCOME EVALUATION NOTE: OUTCOME SUMMARY: Pierre had a good day. A/OX4, VSS, afebrile on RA. Pt able to ambulate in callaway w/ staff. Pain well controlled w/o meds. CT remains intact. TPA and dornase instilled into tube by per protocol. Pt quietwatching TV for most of shift. AUOP. Passing flatus. No BM this shift. Will continue to monitor. PLAN MOVING FORWARD: TPA/Dornase to CT. Encourage ambulation. INDIVIDUALIZED FALL PREVENTION INTERVENTIONS: Patient-specific fall risk factors per assessment: [current deficits]: Lines, drains, weakness. Assistance [level of assistance required for transfers and ambulation]: SBA w/ FWW Supervision [direct monitoring required during toileting and ADLs]: Arms reach Surveillance [continuous indirect monitoring]: Purposrful hourly rounding, call padilla in reach, belongings in reach. Patient-specific fall prevention interventions for sensory deficits provided, if applicable: [X] N/A CPG GOAL OUTCOME EVALUATION: Ongoing Consult Note - Rhonda Claire MD - 10/29/2019 9:18 AM EDT INFECTIOUS DISEASE CONSULTATION NOTE Reason for Consult: Empyema Consulting Service: CT surgery Consulting Attending: Otf Jose MD Admission Date: 10/27/2019 History of Present Illness: 69 y.o. male with a history of COPD, Morbid obesity,HTN, and stage IIIA lung adenocarcinoma, s/p R pleurX catheter placement for recurrent pleural effusion in august 2019 (with cytology showing atypicalcells) who is currently admitted due to a empyema (GPRs on gram stain) where ID was consulted for antimicrobial optimization and eventual OPAT. On 10/20 went in for follow up mentioned pleurex not draining during that visit. He had a CXR with increase effusion. Due to this finding intrapleural tpa was successfully administered in an attempt todrain effusion. Then on 10/26 he presented with shortness of breath to the Emergency department. He mentioned being seen at [facility] earlier that day where he had a CXR done- CT sx called relating he should go to the ED for further eval. He mentioned having fevers and chills that started that day along with marked dyspnea on exertion. He had a Tmax of 37.8 ??C, O2 saturation between 92-97% on RA.On physical exam he had diminished breath sounds and crackles to R lung. Leukocytosis to 15.2, hb 10.8, plt 357. Na 129, Cl 94, Cr 1.04. He was admitted for further evaluation and mgmt. While inpatient, he was continued on broad spectrum abx with vancomycin and piperacillin-tazobactam.He is receiving tpa/dornase s/p 2 cycles with approx 1.5L output. The plerual fluid was sampled withGPR on gram stain. No organisms growing on plates yet. Upon interview, he mentions having some improvement to the dyspnea. Denies having obvious chest pain, PND, n/v/d. Review of Systems: Pertinent positives and negatives noted in HPI. 14 point ROS otherwise negative Past Medical History: Past Medical History: Diagnosis Date ??? Adenocarcinoma, lung, right ??? COPD (chronic obstructive pulmonary disease) ??? DJD (degenerative joint disease) ??? HTN (hypertension), benign ??? PAC (premature atrial contraction) Past Surgical History: Past Surgical History: Procedure Laterality Date ??? LUMBAR DISC SURGERY ??? PRO BRONCHOSCOPY, DIAGNOSTIC N/A 09/05/2019 BRONCHOSCOPY, DIAGNOSTIC (WRVU 2.78) performed by Stan Bernal MD at [facility] MAIN OR ? ? PRO INJECTION ANES AGENT &/ STEROID INTERCOSTAL NERVE EA ADDL LEVEL Right 09/05/2019 NERVE BLOCK, INTERCOSTAL NERVE, MULTIPLE (WRVU 1.68) performed by Stan Bernla MD at [facility] MAIN OR ??? PRO INSERTION INDWELLING TUNNELED PLEURAL CATHETER Right 09/05/2019 INSERTION INDWELLING PLEURAL CATHETER W\CUFF (WRVU 4.17) performed by Stan Bernal MD at [facility] OR ??? PRO THORACOSCOPY WITH BIOPSY OF PLEURA Right 09/05/2019 THORACOSCOPY; WITH BIOPSY(IES) OF PLEURA (WRVU 4.58) performed by Stan Bernal MD at [facility] MAIN OR ??? SUBTOTAL COLECTOMY 05/23/2016 ??? TOTAL KNEE ARTHROPLASTY Right ??? UMBILICAL HERNIA REPAIR Medications: ??? alteplase (CATHFLO) 10 mg in sodium chloride 0.9% 30 mL AND dornase alpha (PULMOZYME) 5 mg in sodium chloride 0.9% 30 mL ??? Vancomycin Level - MAR Order Reminder ??? cefTRIAXone (ROCEPHIN) 2 g vial attach to sodium chloride 0.9% 50 mL Mini- Bag Plus ??? vancomycin 2 g in sodium chloride 0.9% 500 mL AND Vancomycin, trough AND [START ON 10/31/2019] Vancomycin Level - MAR Order Reminder ??? acetaminophen (Tylenol) tablet 650 mg ??? amLODIPine (Norvasc) tablet 10 mg ??? budesonide-formoteroL (SYMBICORT) 160-4.5 mcg/actuation inhaler 2 Inhalation ??? chlorthalidone (Hygroten) tablet 25 mg ??? folic acid (Folvite) tablet 1,000 mcg ??? loperamide (Imodium A-D) capsule 2 mg ??? sodium chloride 0.9 % (flush) flush 5 mL ??? sodium chloride 0.9 % (flush) flush 5-20 mL ??? lidocaine (XYLOCAINE) 10 mg/mL (1 %) injection 3 mg ??? senna (Senokot) tablet 17.2 mg ??? docusate sodium (Colace) capsule 100 mg ??? heparin (Porcine) subcutaneous injection 5,000 Units ??? ipratropium-albuteroL (DUONEB) 0.5 mg-3 mg(2.5 mg base)/3 mL nebulizer solution 3 mL Allergies: Allergies Allergen Reactions ??? Lisinopril Angioedema Lips got swollen Family History: Older brother: liver cancer, Mother: alive, DJD Social History: Lives in 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 Physical Exam: Last value Range last 24 hrs Temperature Temp: 36.4 ??C (97.5 ??F) Temp: [36.2 ??C (97.2 ??F)-37.2 ??C (99 ??F)] Heart Rate Heart Rate: 85 Heart Rate: [85-91] Blood Pressure BP: 125/66 BP: (95-125)/(47-66) Respiratory Rate Resp: 18 Resp: [16-18] SpO2 SpO2: 95 % SpO2: [93 %-95 %] General: NAD Head: NC AT EENT: EOMI MMM Neck: no obvious JVD Cardiovascular: Pulmonary: nonlabored respirations, decreased breath sounds at the R base Abdomen: ND NT Ext: UE and LE WWP Skin: No obvious rashes Neuro: No facial droop or slurring of speech Laboratory: Recent Labs 10/29/19 0929 10/28/19 1139 10/27/19 1624 WBC 9.9* 11.6* 15.2* HGB 11.1* 10.3* 10.8* HCT 35.9* 33.8* 34.4* PLATELET 340 341 357 Recent Labs 10/29/19 0929 10/28/19 1139 10/27/19 1624 NA 133* 132* 129* K 4.4 4.5 4.4 CL 97* 96* 94* CO2 22 22 24 BUN 15 14 14 CREATININE 1.15 1.20 1.04 No results for input(s): AST, ALT, ALKPHOS, BILITOT, BILIDIR in the last 168 hours. No results found for: CRP No results found for: SEDRATE No results found for: SPGRAVITYUA, PHUADIP, PROTEINUADIP, GLUCOSEU, KETONESUA, UROBILIUADIP, BLOODUADIP, NITRATEUA, LEUKOESTERUA, WBCUA, RBCUA, BILIRUBINUA Micro: Blood culture 10/26 NGTD Body Fluid Culture: 10/27 Specimen Information: Pleural Fluid ?? Component Value Body Fluid Culture Abnormal No growth to date. Gram Stain Abnormal Cytocentrifuge Gram Stain performed No Neutrophils seen. Rare Gram Positive Rods Results called to and read back by Rhonda Jolly Therapeutic agent Dose and interval Start date End date Piperacillin tazobactam 3.375gm Q8h 10/26 Present Vancomycin 2000mg Q24H 10/26 Present Scheduled Meds: ??? alteplase (CATHFLO) 10 mg in 20 mL sodium chloride 0.9% 10 mg Alternative Route- Specify in Admin Instructions Q12H And ??? dornase josafat (PULMOZYME) 5 mg in 25 mL sodium chloride 0.9% 5 mg Alternative Route- Specify in Admin Instructions Q12H ??? Vancomycin Level - MAR Order Reminder NOT APPLICABLE Once ??? cefTRIAXone 2 g Intravenous Q24H ??? vancomycin 2,000 mg Intravenous Q12H And ??? [START ON 10/31/2019] Vancomycin Level - MAR Order Reminder NOT APPLICABLE Once ??? amLODIPine 10 mg Oral Daily ??? budesonide-formoteroL 2 Inhalation Inhalation BID ??? chlorthalidone 25 mg Oral Daily ??? folic acid 1 mg Oral Daily ??? sodium chloride 0.9 % (flush) 5 mL Intravenous BID ??? senna 17.2 mg Oral QPM ??? docusate sodium 100 mg Oral TID ??? heparin (Porcine) 5,000 Units Subcutaneous Q8H CECE Continuous Infusions: PRN Meds:.acetaminophen, loperamide, sodium chloride 0.9 % (flush), lidocaine, ipratropium-albuteroL Radiology/Studies/Procedures: CXR 10/27 IMPRESSION Right-sided hydropneumothorax, decrease in fluid component and increase in air component. Impression: Alin Meek is a 69 y.o. male with a history of with a history of COPD, Morbid obesity,HTN, andstage IIIA lung adenocarcinoma, s/p R pleurX catheter placement for recurrent pleural effusion in august 2019 (with cytology showing atypical cells) who is currently admitted due to a empyema with GPRs on gram stain. The Gram positive bacilli on gram stain can be a multitude of organisms including bacillus species, corynebacterium, listeria. As they each have variable susceptibilities I would recommend continuing the patient on broad- spectrum antimicrobial therapy with the caveat of transitioning thepiperacillin- tazobactam to ceftriaxone. Recommendations: 1. Stop piperacillin-tazobactam 2. Start ceftriaxone 2gm Q24H 3. Continue with Vancomycin 2gm Q12H 4. Continue to follow cultures as they result This patient was discussed with ID attending . Recommendations discussed with primary treating team. Thank you very much for this interesting consult and allowing me to participate in this patient's care. The Infectious Disease consult service will continue to follow patient. Do not hesitate to page withany further questions or concerns. Rhonda Claire MD 10/29/2019 6:44 PM [id number] Associated attestation - Otf Peres MD - 10/30/2019 10:29 AM EDT I have seen and examined the patient and discussed the assessment and plan with the fellow. I reviewed the fellow's note and I agree with the documented findings and recommendations. Empyema due to infected PleurX for malignant pleural effusion, GPR on gram stain. Would narrow empiric treatment to ceftriaxone and vancomycin, to be further adjusted based on species identification and drug susceptibility testing. Otf Peres MD ID Staff Physician Plan of Care - Laura Harvey RN - 10/29/2019 4:56 AM EDT Problem: Patient Care Overview Goal: Plan of Care Review Outcome: Ongoing (Interventions Implemented as Appropriate) 10/29/19 0447 Coping/Psychosocial Plan Of Care Reviewed With patient OUTCOME EVALUATION NOTE: OUTCOME SUMMARY: 1938-C/O 08/25 pain on his back, given Tylenol with relief, Chest tube canister changed with serous drainage... ?? PLAN MOVING FORWARD: Chest X-ray in am. INDIVIDUALIZED FALL PREVENTION INTERVENTIONS: Patient-specific fall risk factors per assessment: [current deficits]: needs assistance getting in and out of bed or chair, pain with movement/ ambulation. ?? Assistance [level of assistance required for transfers and ambulation]:Cane, Non-skid slippers, stand by. Supervision [direct monitoring required during toileting and ADLs]: Eyes on . Surveillance [continuous indirect monitoring]: Purposeful rounding; call light in reach, Bed/chair alarm Patient-specific fall prevention interventions for sensory deficits provided, if applicable: Lighting adjusted for safety. CPG GOAL OUTCOME EVALUATION: ?? Plan of Care - Rhonda Jolly RN - 10/28/2019 4:43 PM EDT Problem: Patient Care Overview Goal: Plan of Care Review Outcome: Ongoing (Interventions Implemented as Appropriate) 10/28/19 0850 10/28/19 1632 Coping/Psychosocial Plan Of Care Reviewed With patient -- Plan of Care Review Progress -- progress toward functional goals as expected OUTCOME EVALUATION NOTE: OUTCOME SUMMARY: Pt had an ok day today- VSS on RA, no SOB reported and pt denied pain throughout most of the shift. He did report some back pain present w/ movement/standing/ambulation- MD notified for request for tylenol- ordered. Voided fair, concentrated/betty amounts of urine in urinal. Reported N/T in extremities per his baseline. Pt went for 1 walk (1 lap) in the hallway while pleurex was clamped after dornase administration. MD and nursing completed TPN administration @ 1230 and dornase administration @ 1530- OP recorded inflowsheets. Pleurex dressing CDI, no air leak/fluctuation noted, and drainage device remained on -20 H2O suctionin between 1 hr clamping sessions after TPA/dornase. Will continue to monitor. PLAN MOVING FORWARD: Monitor I&O, promote ambulation, coughing/deep breathing INDIVIDUALIZED FALL PREVENTION INTERVENTIONS: Patient-specific fall risk factors per assessment: [current deficits]: IV therapy, generalized weakness, numbness/tingling in extremities, R pleurex catheter Assistance [level of assistance required for transfers and ambulation]: 1 a w/ cane Supervision [direct monitoring required during toileting and ADLs]: Eyes on, arms reach, hands on Surveillance [continuous indirect monitoring]: Frequent rounding, bed alarm, visual checks, Masimo Patient-specific fall prevention interventions for sensory deficits provided, if applicable: [X] N/A CPG GOAL OUTCOME EVALUATION: Continues to progress towards functional goals Initial Assessments - Betty Woods RN - 10/28/2019 3:08 PM EDT Office of Care Management Initial Assessment Face to Face Case Management visits deferred at this time r/t Covid-19 pandemic, exposure reduction and conserving PPE. Betty Woods RN reviewed record and discussed patient with Care Team. Source of Information: Thoracic Team, bedside nurse, chart review, interviewing patient. Introduced self/reviewed role; services accepted. Reason for Hospitalization: <principal problem not specified> note: 69 y.o. male with stage IIIA lung adenocarcinoma s/p R VATS pleural bx and pleurX placement for recurrent right sided effusion who is admitted with concerns of clogged pleurX. Undergoing fibrinolytic therapy. 10/28/19~Romina Tinsley PA Past Medical History: Diagnosis Date ??? Adenocarcinoma, lung, right ??? COPD (chronic obstructive pulmonary disease) ??? DJD (degenerative joint disease) ??? HTN (hypertension), benign ??? PAC (premature atrial contraction) Hospitalizations Within the Past 30 Days:No [facility] [place] [place] admits in last 30 days. Anticipated Length Of Stay (If known): Vs TBD Current Decision-Making Capacity: Patient is A&Ox4 Has current decision making capacity. Advance Care Planning: Full Code No AD in EPIC. If AD's have not been completed would be surrogate decision maker per [place] surrogate decision making law. Current Coping/Education/Information Needs: Current coping questions and concerns have been addressed. Current Functional Ability: Using cane With assist, OT/PT consults ordered Functional Status Prior to Admission: Used cane at home needed help getting out of chairs , does drive and take care of personal needs . Behavioral Health History: None stated above in medical history Substance Use/Abuse: Social History Tobacco Use ??? Smoking status: Former Smoker Packs/day: 2.00 Types: Cigarettes Start date: 1969 Last attempt to quit: 2016 Years since quittin.3 ??? Smokeless tobacco: Former User Types: Chew Quit date: 1974 ??? Tobacco comment: 2015 quit Substance Use Topics ??? Alcohol use: No Comment: usd to drink heavily ( 12 pck/day) quit 2015 ??? Drug use: No Home Environment: [address] [place] [address] [address] [facility] [address] Social & Family Supports/Community Resources: Family are supportive Extended Emergency Contact Information Primary Emergency Contact: Stephanie Meek Address: [address] [address] [facility] Relation: Spouse Health/Prescription Coverage: Primary Insurance: [employer] Secondary Insurance: N/A Prescription Coverage: yes gets meds through [place] Preferred Pharmacy: [id number] [facility] [address] [address] Other: none Primary Care Provider: Farzaneh Winkler, EMPLOYMENT MANAGER [phone] Patient/Caregiver Goals of Treatment: Want to get better and get home Potential Needs for Transition of Care: Rehab/SNF: None anticipated Home Health: may need depending on drains or tubes at discharge ( [facility] ) DME: Has cane at home Dialysis: None anticipated Community Resources: None anticipated Transportation: family Anticipated Barriers to Discharge/Special Considerations: none vs anticipated barriers to arise as hospitalization continues. Assessment: Home with VNA vs home watch for pt needs as well Plan: A member of the Care Management team will continue to monitor progress, follow for continuity of care and assist with transition of care planning. Betty Woods RN CM [facility] Liaison Pager # [phone] Consult Note - Rogerio Cuellar RPH - 10/28/2019 11:53 AM EDT Clinical Pharmacist Note - Vancomycin Alin Meek [id number] Alin Meek is a 69 y.o. male who is starting antibiotic therapy which includes intravenous vancomycin. Based on a review of the patient???s chart and/or conversation with the patient???s providers vancomycin is being used for empiric coverage of pneumonia with a targeted goal of 15 - 20 mcg/mL. The following Pharmacokinetic data has been evaluated: Wt Readings from Last 1 Encounters: 10/27/19 136.1 kg (300 lb) Ht Readings from Last 1 Encounters: 10/21/19 182 cm (5' 11.65) Labs: Creatinine clearance: Creatinine (mg/dL) Date Value 10/27/2019 1.04 CrCl ~ 85 mL/minute Vd = 95 Liters T1/2 = 9 hours Dosing recommendations: ??? Based on this information, vancomycin therapy will be initiated at a dose of 2000 mg IV every 8 hours to start now. ??? We will check a vancomycin trough prior to the morning dose on , October 29 We will continue to monitor the patient as long as he remains on vancomycin therapy. Thank you for this consult and please page the care area pharmacist with any questions you may have. Alternately, during off-hours (9p-7a) you may call [phone] to contact a pharmacist. ROGERIO CUELLAR RPH Plan of Care - Laura Harvey RN - 10/28/2019 7:47 AM EDT Problem: Patient Care Overview Goal: Plan of Care Review Outcome: Ongoing (Interventions Implemented as Appropriate) 10/28/19 0742 Coping/Psychosocial Plan Of Care Reviewed With patient OUTCOME EVALUATION NOTE: OUTCOME SUMMARY: 2001-Transferred from ED, with Pleurex drain on right lateral. Chest which stop draining which make him SOB. 0000-Chest tube to -20 suction, given Alteplase per protocol by MD Bell after Time-out. 0300-Given Dornase per protocol witjh 900 ml serous sanguinous output from Chest tube which makes Pierre feel a lot better. PLAN MOVING FORWARD: Will give another cycle of Alteplase and Dornase. INDIVIDUALIZED FALL PREVENTION INTERVENTIONS: Patient-specific fall risk factors per assessment: [current deficits]: Mobility aid at home, pressures, needs assistance getting in and out of bed or chair ?? Assistance [level of assistance required for transfers and ambulation]: Cane, Non-skid slippers, stand by. Supervision [direct monitoring required during toileting and ADLs]: Arms reach . Surveillance [continuous indirect monitoring]: Purposeful rounding; call light in reach, Bed/chair alarm Patient-specific fall prevention interventions for sensory deficits provided, if applicable: Lighting adjusted for safety. CPG GOAL OUTCOME EVALUATION: ?? ED Triage - Isak Velazquez RN - 10/27/2019 2:26 PM EDT Co SOB for the past year. I have fluid on my right lung, I have a drain placed but it's not draining. A+O. documented in this encounter Plan of Treatment Upcoming Encounters Date Type Specialty Care Team Description 01/19/2022 Office Visit Hematology and Oncology Loan Burton, EMPLOYMENT MANAGER [facility] HEMATOLOGY/ONCO LOGY DEPT. [place] [address] 01/19/2022 Infusion Hematology and Oncology Canc eled (F-ARIA CANCEL) 01/25/2022 Hospital Gastroenterology Jose Clark MD [facility] [place] [address] 01/25/2022 Surgery Gastroenterology Jose Clark, LOLA Yates MD ENDOSCOPY [facility] [place] [address] 01/26/2022 Office Visit Hematology and Oncology Fabian Cameron MD [facility] DR HEMATOLOGY/[place] [address] Loan Burton APRN [facility] DR HEMATOLOGY/[place] [address] 01/26/2022 Infusion Hematology and Oncology 02/02/2022 Office Visit Hematology and Oncology Fabian Cameron MD [facility] DR HEMATOLOGY/[place] [address] 02/02/2022 Infusion Hematology and Oncology 02/22/2022 Telephone Hematology and Oncology Siena Lloyd, RD [facility] DRIVE [place] [address] Scheduled Procedures Name Priority Associated Diagnoses Date/Time EGD, UPPER GI ENDOSCOPY EGD with stent vs 2021 12:00 PM EDT cryotherapy. Scheduled Referrals Name Type Priority Associated Diagnoses Order S chedule OPAT: Order / Outpatient Routine Pleural empyema Ordered: Recommendation for Referral Sequela of 0 Post Discharge IV Corynebacterium Antibiotic Management infection documented as of this encounter Procedures Procedure Name Priority Date/Time Associated Comments Diagnosis HC VANCOMYCIN Timed 11/03/2019 8:50 AM Results for this EDT procedure are i n the results section. BASIC METABOLIC PANEL Routine 11/02/2019 10:45 Re sults for this (NON-FASTING) AM EDT procedure are in the results section. HC VANCOMYCIN Timed 11/02/2019 7:55 AM Results for this EDT procedure are i n the results section. XR PICC PLACEMENT Routine 11/01/2019 12:22 Result s for this OVER 5 YEARS (IV PM EDT procedure a re in TEAM) the results section. PLACE PICC LINE: Routine 11/01/2019 11:27 Results for this CONTACT VASCULAR AM EDT procedure a re in ACCESS the results section. XR CHEST PA AND Routine 11/01/2019 7:25 AM Result s for this LATERAL EDT procedure are i n the results section. HEMOGRAM Routine 11/01/2019 6:12 AM Results f or this EDT procedure are i n the results section. DIFFERENTIAL, Routine 11/01/2019 6:12 AM Results for this AUTOMATED EDT procedure are i n the results section. HC VENIPUNCTURE Routine 11/01/2019 6:12 AM EDT BASIC METABOLIC PANEL Routine 11/01/2019 6:12 AM Results for this (NON-FASTING) EDT procedure are in the results section. HC VENIPUNCTURE Timed 10/31/2019 5:52 PM Result s for this EDT procedure are i n the results section. CT CHEST WO CONTRAST Routine 10/31/2019 12:34 Res ults for this (GENERIC) PM EDT procedure are i n the results section. ANAEROBIC CULTURE Routine 10/31/2019 10:40 Result s for this AM EDT procedure are i n the results section. HC CULTURE ANAEROBE Routine 10/31/2019 10:40 PRESUMPTIVE AM EDT BODY FLUID CULTURE, Routine 10/31/2019 10:40 Resu lts for this AEROBIC AM EDT procedure are i n the results section. HC VENIPUNCTURE Routine 10/31/2019 5:26 AM Result s for this EDT procedure are i n the results section. HC VANCOMYCIN Timed 10/31/2019 5:26 AM Results for this EDT procedure are i n the results section. BASIC METABOLIC PANEL Routine 10/31/2019 5:26 AM Results for this (NON-FASTING) EDT procedure are in the results section. XR CHEST PA AND Routine 10/30/2019 5:22 AM Result s for this LATERAL EDT procedure are i n the results section. HEMOGRAM Routine 10/30/2019 4:13 AM Results f or this EDT procedure are i n the results section. DIFFERENTIAL, Routine 10/30/2019 4:13 AM Results for this AUTOMATED EDT procedure are i n the results section. HC CBC,PLT & AUTO Routine 10/30/2019 4:13 AM DIFF EDT BASIC METABOLIC PANEL Routine 10/30/2019 4:13 AM Results for this (NON-FASTING) EDT procedure are in the results section. HC VANCOMYCIN Timed 10/29/2019 1:39 PM Results for this EDT procedure are i n the results section. HEMOGRAM Routine 10/29/2019 9:29 AM Results f or this EDT procedure are i n the results section. DIFFERENTIAL, Routine 10/29/2019 9:29 AM Results for this AUTOMATED EDT procedure are i n the results section. HC CBC,PLT & AUTO Routine 10/29/2019 9:29 AM DIFF EDT BASIC METABOLIC PANEL Routine 10/29/2019 9:29 AM Results for this (NON-FASTING) EDT procedure are in the results section. XR CHEST PA AND Routine 10/29/2019 6:31 AM Result s for this LATERAL EDT procedure are i n the results section. HEMOGRAM Routine 10/28/2019 11:39 Results for this AM EDT procedure are i n the results section. DIFFERENTIAL, Routine 10/28/2019 11:39 Results fo r this AUTOMATED AM EDT procedure are i n the results section. HC VENIPUNCTURE Routine 10/28/2019 11:39 AM EDT BASIC METABOLIC PANEL Routine 10/28/2019 11:39 Re sults for this (NON-FASTING) AM EDT procedure are in the results section. XR CHEST PA AND Routine 10/28/2019 10:46 Results for this LATERAL AM EDT procedure are i n the results section. HC CALCOFLUOR FUNGAL Routine 10/28/2019 9:00 AM STAIN EDT ANAEROBIC CULTURE Routine 10/28/2019 9:00 AM Resu lts for this EDT procedure are i n the results section. HC BODY FLUID CULTURE Routine 10/28/2019 9:00 AM EDT FUNGAL STAIN Routine 10/28/2019 9:00 AM Results f or this EDT procedure are i n the results section. BODY FLUID CULTURE, Routine 10/28/2019 9:00 AM Re sults for this AEROBIC EDT procedure are i n the results section. FUNGUS CULTURE Routine 10/28/2019 9:00 AM Results for this EDT procedure are i n the results section. HC BLOOD CULTURE- STAT 10/27/2019 5:39 PM Resu lts for this EDT procedure are i n the results section. XR CHEST PA AND STAT 10/27/2019 4:34 PM Result s for this LATERAL EDT procedure are i n the results section. HEMOGRAM STAT 10/27/2019 4:24 PM Results f or this EDT procedure are i n the results section. DIFFERENTIAL, STAT 10/27/2019 4:24 PM Results for this AUTOMATED EDT procedure are i n the results section. GOLD TUBE HOLD STAT 10/27/2019 4:24 PM Results for this EDT procedure are i n the results section. BLUE TUBE HOLD STAT 10/27/2019 4:24 PM Results for this EDT procedure are i n the results section. HC CBC,PLT & AUTO STAT 10/27/2019 4:24 PM DIFF EDT HC TROPONIN T STAT 10/27/2019 4:24 PM Results for this EDT procedure are i n the results section. BASIC METABOLIC PANEL STAT 10/27/2019 4:24 PM Results for this (NON-FASTING) EDT procedure are in the results section. BLOOD GAS VENOUS Routine 10/27/2019 4:20 PM Resul ts for this ([facility]) EDT procedure are i n the results section. EKG 12-LEAD STAT 10/27/2019 3:42 PM Results f or this EDT procedure [...] report, please contact th e number below. Otf Jose MD IMG DX ORDERABLES (ABNORMAL) Vancomycin, trough (11/03/2019 8:50 AM EDT) athologist Signature Vanc Trough 23.0 mg/L [facility] (Critical) [facility] Comment: Called by: TF, Read back by: kristie greene, Date/Time:11/03/19 09:34. Therapeutic range for complicated infect ions such as bacteremia, endocarditis, osteomyelitis, meningitis, and hospital- acquired pneumonia caused by S. aureus: 15-20 mg/L Therapeutic range for other indications: 10-15 mg/L Toxic: >20 mg/L Reference: Vancomycin Therapeutic Monitoring: Laisha arredondo and Recommendations from the ASHP, IDSA and SIDP Task Force. ??Am J Health- Syst Pharm. 2009; 66:82-98 Specimen Anatomical Collection Method Collection Time Receive d Time (Source) Location / / Volume Laterality Blood specimen 11/03/2019 8:50 AM 020 8:56 (specimen) EDT AM EDT Resulting Agency Comment Spec In Lab Otf Jose MD CHEMISTRY ORDERABLES Performing Organization Address City/State/ZIP [place] [address] (ABNORMAL) Basic Metabolic Panel (non-fasting) (11/02/2019 10:45 AM EDT) athologist Signature Glucose Lvl 119 65 - 199 [facility] mg/dL [facility] Comment: Diabetes: >=200 mg/dL plus symp toms BUN 21 (H) 10 - 20 mg/dL [facility] Creatinine 1.31 0.80 - 1.50 mg/dL [facility] Sodium 132 (L) 135 - 145 mmol/L [facility] Potassium 4.1 3.5 - 5.0 mmol/L [facility] Comment: Please note: ??Patients with WBC >100,00 0 may have falsely elevated Potassium levels. ??For accurate Potassium quantif ication in these patients send serum separator tube (gold top) for subsequent determinations. ??Contact the Clinical Chemistry Laboratory if there are any qu estions. Chloride 95 (L) 98 - 107 mmol/L [facility] CO2 26 22 - 31 mmol/L [facility] Anion Gap 11 5 - 15 mmol/L [facility] Calcium 8.7 8.5 - 10.5 mg/dL [facility] Estimated GFR 56 (L) >=60 mL/min/1.73 m?? [facility] Comment: The eGFR was calculated using the CKD-EP I equation. As with all creatinine based estimates of kidney function, eGFR values calculated with the CKD-EPI equation are not accurate in patients wi th acute kidney failure, extremes of body mass or the acutely ill. [email or web address] eGFR 64 >=60 mL/min/1.73 m?? [facility] Comment: The eGFR was calculated using the CKD-EP I equation. As with all creatinine based estimates of kidney function, eGFR values calculated with the CKD-EPI equation are not accurate in patients wi th acute kidney failure, extremes of body mass or the acutely ill. [email or web address] Specimen Anatomical Collection Method Collection Time Receive d Time (Source) Location / / Volume Laterality Blood specimen 11/02/2019 10:45 0 (specimen) AM EDT 10:56 AM EDT Resulting Agency Comment Spec In Lab Otf Jose MD CHEMISTRY ORDERABLES Performing Organization Address City/State/[place] [address] (ABNORMAL) Vancomycin, trough (11/02/2019 7:55 AM EDT) P athologist Signature Vanc Trough 23.9 mg/L [facility] (Critical) [facility] Comment: Called by: MMRead back by: Milvia Downs at 11/02/19 09:34 Therapeutic range for complicated infect ions such as bacteremia, endocarditis, osteomyelitis, meningitis, and hospital- acquired pneumonia caused by S. aureus: 15-20 mg/L Therapeutic range for other indications: 10-15 mg/L Toxic: >20 mg/L Reference: Vancomycin Therapeutic Monitoring: Laisha arredondo and Recommendations from the ASHP, IDSA and SIDP Task Force. ??Am J Health- Syst Pharm. 2009; 66:82-98 Specimen Anatomical Collection Method Collection Time Receive d Time (Source) Location / / Volume Laterality Blood specimen 11/02/2019 7:55 AM 020 8:04 (specimen) EDT AM EDT Resulting Agency Comment Spec In Lab Otf Jose MD CHEMISTRY ORDERABLES Performing Organization Address City/State/ZIP Code Phon e Number [place] [id number] XR PICC Placement Over 5 Years with Imaging Guidance (IV Team) (11/01/2019 12:22 PM EDT) Anatomical Region Laterality Modality N/A Radio Fluoroscopy Specimen (Source) Anatomical Location Collection Method / Collectio n Time Received Time / Laterality Volume Impressions 11/01/2019 1:37 PM EDT Intraprocedural frontal radiograph of the mediastinum demonstrates a Right PICC, with the catheter tip projec jaguar at the mid SVC. Thank you for letting us participate in the care of this patient. For questions regarding this report, please contact [facility] number below. ? Narrative 11/01/2019 1:37 PM EDT EXAMINATION: XR PICC PLACEMENT OVER 5 YEARS WITH IMAGING GUIDANCE (IV TEAM) CLINICAL HISTORY: Confirmation of PICC l ine placement TECHNIQUE: C-arm placement of PICC. Limi jaguar view of the line tip only. COMPARISON: Chest radiograph October 31 0, CT of the chest dated October 31, 2019. FINDINGS: See impression. Procedure Note Eliot Salguero MD - 11/01/2019For matting of this note might be different from the original. EXAMINATION: XR PICC PLACEMENT OVER 5 YE ARS WITH IMAGING GUIDANCE (IV TEAM) CLINICAL HISTORY: Confirmation of PICC l ine placement TECHNIQUE: C-arm placement of PICC. Limi jaguar view of the line tip only. COMPARISON: Chest radiograph October 31 0, CT of the chest dated October 31, 2019. FINDINGS: See impression. IMPRESSION Intraprocedural frontal radiograph of [facility] mediastinum demonstrates a Right PICC, with the catheter tip projec jaguar at the mid SVC. Thank you for letting us participate in the care of this patient. For questions regarding this report, please contact [facility] number below. Otf Jose MD IMG FLUORO ORDERABLES Place PICC Line: Contact Vascular Access Page [phone] Extremity to exclude: No restrictions; Is PICC procedure required PRIOR to patients discharge? Yes (11/01/2019 11:27 AM EDT) Narrative Kym Amaral RN - 11/01/2019 11:27 AM EDT Kym Amaral RN ? 11/01/2019 12:27 PM PICC/Midline Insertion Procedure Note Indications: Anti-infective and Access This insertion was not to replace a malf unctioning catheter. This insertion was not due to a suspecte d line-associated infection. Location of Procedure: X-Ray Room 11 Risks and Benefits: The risks and benefits of this procedure were reviewed and informed consent was obtained obtained. Time Out: Prior to the start of the procedure, the patient's identity, intended procedure, site/side, correct p atient positioning and presence of the site clement was confirmed as applicable. The medical history and chart were reviewed to rule out potential contraindications to the planned procedu re. Hand Hygiene: The set up and lay out inspector did perform hand hygiene pr ior to line insertion. Catheter type: PICC Lot number: [id number] Procedure Technique: Skin was prepped with chlorhexidine. Skin preparation agent was completely dr y at the time of first skin puncture. The following barrier precaution methods were used:large sterile drape, maske/eye shield, large sterile g own, sterile gloves and cap. 2 ml of 1% Lidocaine was used for skin w heal. Ultrasound was used for guidance. ??Radiographic contrast ag ent was not injected for vein identification. Procedure Details: Order received for catheter placement. A 4 Fr. single lumen Bard Power catheter was placed into the right basilic vein over a 0.018 inch guidewire using modified seld tono technique and fluoroscopy. Arm circumference was 43 cm at 2 cm above the insertion site. Final catheter length (with trimming): 4 5 cm Internal: 45 cm External: 0 cm Tip in SVC per DR MELENDREZ. The line was not placed over a guidewire . Post Procedure: Diagnosis: EMPYEMA Blood return noted on aspiration of line after placement confirmed. 5 mls of normal saline infuse d free flowing to gravity via PICC after insertion. Sterile dressi ng applied: CHG Impregnated Tegaderm. Findings: The patient did tolerate the procedure w ell. No Complications. Procedure Comments: KYM AMARAL RN 11/01/2019 Otf Jose MD PROCEDURE/MINOR SURGICAL ORD ERABLES XR Chest PA & Lateral (Generic) (11/01/2019 7:25 AM EDT) Anatomical Region Laterality Modality Chest N/A Digital Radiography Specimen (Source) Anatomical Location Collection Method / Collectio n Time Received Time / Laterality Volume Impressions 11/01/2019 8:02 AM EDT Persistent right hydropneumothorax with increased opacification of the right mid to lower hemithorax likely representing a combination of increased pleural effusion with underlying atelectasis or consolidation. I have personally reviewed the image(s) and the resident's interpretation and agree with the findings, Galina Hunter at 11/01/2019 8:02 AM Thank you for letting us participate in the care of this patient. For questions regarding this report, please contact e number below. ? Narrative 11/01/2019 8:02 AM EDT EXAMINATION: XR CHEST PA AND LATERAL (GENERIC) CLINICAL HISTORY: s/p tpa/dornase for lo culated right pleural effusion, please eval for changes/ptx/effusion TECHNIQUE: PA and lateral views of the chest COMPARISON: Chest CT 10/31/2019, chest radiograph 10/30/2019 FINDINGS: A right Mediport catheter is unchanged i n position with tip projecting in the upper SVC. A right chest tube is also in unchanged position with tip projecting in the right upper hemithorax. Persistent right hydropneumothorax with increased hazy opacity of the right mid/lower lung, likely reflecting a comb ination of increased effusion with underlying atelectasis. Similar degree o f right lung volume loss. Unchanged mildly hyperexpanded left lung without e ffusion or pneumothorax. Cardiac silhouette is partially obscured but roma ssly unchanged. Procedure Note Galina Hunter MD - 11/01/2019 EXAMINATION: XR CHEST PA AND LATERAL (GE NERIC) CLINICAL HISTORY: s/p tpa/dornase for lo culated right pleural effusion, please eval for changes/ptx/effusion TECHNIQUE: PA and lateral views of the chest COMPARISON: Chest CT 10/31/2019, chest radiograph 10/30/2019 FINDINGS: A right Mediport catheter is unchanged i n position with tip projecting in the upper SVC. A right chest tube is also in unchanged position with tip projecting in the right upper hemithorax. Persistent right hydropneumothorax with increased hazy opacity of the right mid/lower lung, likely reflecting a comb ination of increased effusion with underlying atelectasis. Similar degree o f right lung volume loss. Unchanged mildly hyperexpanded left lung without e ffusion or pneumothorax. Cardiac silhouette is partially obscured but roma ssly unchanged. IMPRESSION Persistent right hydropneumothorax with increased opacification of the right mid to lower hemithorax likely representing a combination of increased pleural effusion with underlying atelectasis or consolidation. I have personally reviewed the image(s) and the resident's interpretation and agree with the findings, Galina Hunter at 11/01/2019 8:02 AM Thank you for letting us participate in the care of this patient. For questions regarding this report, please contact e number below. NOLAN De La Rosa DX ORDERABLES (ABNORMAL) Differential, Automated (11/01/2019 6:12 AM EDT) [facility] Method Time Signature Neutrophils % 81.6 % [facility] Neutr Abs (ANC) 8.99 (H) 1.70 - [facility] 6.10 [facility] x10(3)/[facility] L LABORATORY Lymphocytes % 7.2 % [facility] Lymphocytes Abs 0.8 (L) 0.9 - 3.2 [facility] x10(3)/[facility] LABORATORY Monocytes % 6.8 % [facility] Monocyte Abs 0.8 0.3 - 0.9 [facility] x10(3)/[facility] LABORATORY Eosinophils % 3.1 % [facility] Eosinophils Abs 0.3 0.0 - 0.4 [facility] x10(3)/[facility] LABORATORY Basophils % 0.6 % [facility] Basophils Abs 0.1 0.0 - 0.1 [facility] x10(3)/[facility] LABORATORY Immature Gran % 0.70 % [facility] Comment: Immature granulocytes(IG's)percentage an d absolute count will include metamyelocytes, myelocytes, and promyelo cytes. Blood smears from CBCs yielding IG's will be scanned manually for concor dance. If this scan disagrees with the automated IG or if promyelocytes are not ed, a manual differential will be performed. Marylin Gran Abs 0.08 (H) 0.00 - 0.04 x10(3)/[facility] LABORATORY Specimen Anatomical Collection Method Collection Time Receive d Time (Source) Location / / Volume Laterality Blood specimen 11/01/2019 6:12 AM 020 6:16 (specimen) EDT AM EDT Resulting Agency Comment Spec In Lab Lula MENJIVAR HEMATOLOGY ORDERABLES Performing Organization Address City/State/ZIP [place] [address] (ABNORMAL) Hemogram (11/01/2019 6:12 AM EDT) Analysis Performed At Patho logist Time Signature WBC 11.0 (H) 4.0 - 9.5 [facility] x10(3)/[facility] LABORATORY RBC 4.78 4.58 - BRIA SILVIO 5.54 [facility] x10(6)/[facility] LABORATORY Hemoglobin 11.5 (L) 13.7 - [facility] 16.[facility] g[facility]/dL [facility] Hematocrit 37.1 (L) 40.5 - [facility] 48.5 % [facility] MCV 77.6 (L) 82.9 - [facility] 93.1 [facility] LABORATORY MCH 24.1 (L) 27.5 - [facility] 32.1 pg [facility] MCHC 31.0 (L) 32.0 - [facility] 35.7 gm/dL [facility] Platelets 405 (H) 145 - 357 [facility] x10(3)/[facility] LABORATORY RDWSD 47.3 (H) 36.0 - [facility] 45.0 [facility] LABORATORY RDWCV 16.7 (H) 11.4 - [facility] 13.8 % [facility] LAB[facility] MPV 8.4 7.6 - 12.9 [facility] LABORATORY nRBC % Auto 0.0 % [facility] nRBC Abs Auto 0.000 0.000 - [facility] 0.000 [facility] x10(3)/[facility] LABORATORY Specimen Anatomical Collection Method Collection Time Receive d Time (Source) Location / / Volume Laterality Blood specimen 11/01/2019 6:12 AM 020 6:16 (specimen) EDT AM EDT Resulting Agency Comment Spec In Lab Lula MENJIVAR HEMATOLOGY ORDERABLES Performing Organization Address City/State/ZIP [place] [address] (ABNORMAL) Basic Metabolic Panel (non-fasting) (11/01/2019 6:12 AM EDT) P athologist Signature Glucose Lvl 120 65 - 199 [facility] mg/dL [facility] Comment: Diabetes: >=200 mg/dL plus symp toms BUN 17 10 - 20 mg/dL [facility] Creatinine 1.11 0.80 - 1.50 mg/dL [facility] LABOR[facility]ORY Sodium 131 (L) 135 - 145 mmol/L [facility] Potassium 4.2 3.5 - 5.0 mmol/L [facility] Comment: Please note: ??Patients with WBC >100,00 0 may have falsely elevated Potassium levels. ??For accurate Potassium quantif ication in these patients send serum separator tube (gold top) for subsequent determinations. ??Contact the Clinical Chemistry Laboratory if there are any qu estions. Chloride 97 (L) 98 - 107 mmol/L [facility] CO2 24 22 - 31 mmol/L [facility] Anion Gap 10 5 - 15 mmol/L [facility] Calcium 8.8 8.5 - 10.5 mg/dL [facility] Estimated GFR 68 >=60 mL/min/1.73 m?? [facility] Comment: The eGFR was calculated using the CKD-EP I equation. As with all creatinine based estimates of kidney function, eGFR values calculated with the CKD-EPI equation are not accurate in patients wi th acute kidney failure, extremes of body mass or the acutely ill. [email or web address] eGFR 79 >=60 mL/min/1.73 m?? [facility] Comment: The eGFR was calculated using the CKD-EP I equation. As with all creatinine based estimates of kidney function, eGFR values calculated with the CKD-EPI equation are not accurate in patients wi th acute kidney failure, extremes of body mass or the acutely ill. [email or web address], [email or web address] Specimen Anatomical Collection Method Collection Time Receive d Time (Source) Location / / Volume Laterality Blood specimen 11/01/2019 6:12 AM 020 6:16 (specimen) EDT AM EDT Resulting Agency Comment Spec In Lab Otf Jose MD CHEMISTRY ORDERABLES Performing Organization Address City/[facility]/ZIP Code Phon e Number [address] Vancomycin, trough (10/31/2019 5:52 PM EDT) P athologist Signature Vanc Trough 18.1 mg/L [facility] Comment: Therapeutic range for complicated infect ions such as bacteremia, endocarditis, osteomyelitis, meningitis, and hospital- acquired pneumonia caused by S. aureus: 15-20 mg/L Therapeutic range for other indications: 10-15 mg/L Toxic: >20 mg/L Reference: Vancomycin Therapeutic Monitoring: Laisha arredondo and Recommendations from the ASHP, IDSA and SIDP Task Force. ??Am J Health- Syst Pharm. 2009; 66:82-98 Specimen Anatomical Collection Method Collection Time Receive d Time (Source) Location / / Volume Laterality Blood specimen 10/31/2019 5:52 PM 020 5:57 (specimen) EDT PM EDT Resulting Agency Comment Spec In Lab Otf Jose MD CHEMISTRY ORDERABLES Performing Organization Address City/[facility]/[place] [address] Chest wo Contrast (Generic) (10/31/2019 12:34 PM EDT) Anatomical Region Laterality Modality Chest Computed Tomography Specimen (Source) Anatomical Location Collection Method / Collectio n Time Received Time / Laterality Volume Impressions 10/31/2019 2:09 PM EDT 1. ??Right-sided pleural effusion is significantly decreased in size since June 2019 with partial reexpansion of the right lung. The effusion contains multiple foci of air consistent with con tinued loculation. Right-sided drainage catheter remains in place with tip in mago ng apex. 2. ??Rightward cardiomediastinal shift h as increased in the setting of the decreased effusion. The right lung may n ot have reexpanded further related to scarring. 3. ??There are 2 stable right adrenal ad enomas. Thank you for letting us participate in the care of this patient. For questions regarding this report, please contact e number below. ? Narrative 10/31/2019 2:09 PM EDT EXAMINATION: CT CHEST WO CONTRAST (GENERIC) CLINICAL HISTORY: Pleural effusion s/p 6 cycles of tpa/dornase through pleu rX, re-eval for loculated effusion TECHNIQUE: 3.75mm thick axial contiguous sections were obtained through the chest via helical acquisition without in travenous contrast administration. Thin-section reconstructions as well as coronal and sagittal reformatted images were generated. COMPARISON: None FINDINGS: Pulmonary parenchyma: The left lung declan ins clear. The aerated right lung parenchyma contains multifocal areas of opacity with air bronchograms which could be related to atelectasis given th e somewhat similar appearance. Airways: No significant findings. Pleura: Large right-sided pneumothorax p reviously seen on the June 2019 CT scan has significantly decreased in size with a small amount of residual for which a drainage catheter remains in babita ce with tip near the right lung apex. Loculated foci of air remain throughout the effusion. The right lung is correspondingly partially reexpanded. Lymph nodes:No significant findings. Heart, pericardium, and great vessels: R ightward cardiomediastinal shift has increased. Other mediastinal structures: No signifi cant findings. Lower neck: No significant findings. Upper abdomen: There are 2 stable right adrenal nodules, the smaller measuring 2.2 cm and the larger measuring 4.3 cm i n the axial plane, both containing fat consistent with adrenal adenomas. Body wall soft tissues: No significant f indings. Skeletal structures: Multilevel degenera tive changes again seen. Procedure Note Jaylyn Esteban MD - 10/31/2019Formatting o f this note might be different from the original. EXAMINATION: CT CHEST WO CONTRAST (GENER IC) CLINICAL HISTORY: Pleural effusion s/p 6 cycles of tpa/dornase through pleu rX, re-eval for loculated effusion TECHNIQUE: 3.75mm thick axial contiguous sections were obtained through the chest via helical acquisition without in travenous contrast administration. Thin-section reconstructions as well as coronal and sagittal reformatted images were generated. COMPARISON: None FINDINGS: Pulmonary parenchyma: The left lung declan ins clear. The aerated right lung parenchyma contains multifocal areas of opacity with air bronchograms which could be related to atelectasis given th e somewhat similar appearance. Airways: No significant findings. Pleura: Large right-sided pneumothorax p reviously seen on the June 2019 CT scan has significantly decreased in size with a small amount of residual for which a drainage catheter remains in babita ce with tip near the right lung apex. Loculated foci of air remain throughout the effusion. The right lung is correspondingly partially reexpanded. Lymph nodes:No significant findings. Heart, pericardium, and great vessels: R ightward cardiomediastinal shift has increased. Other mediastinal structures: No signifi cant findings. Lower neck: No significant findings. Upper abdomen: There are 2 stable right adrenal nodules, the smaller measuring 2.2 cm and the larger measuring 4.3 cm i n the axial plane, both containing fat consistent with adrenal adenomas. Body wall soft tissues: No significant f indings. Skeletal structures: Multilevel degenera tive changes again seen. IMPRESSION 1. Right-sided pleural effusion is signi ficantly decreased in size since June 2019 with partial reexpansion of the right lung. The effusion contains multiple foci of air consistent with con tinued loculation. Right-sided drainage catheter remains in place with tip in mago ng apex. 2. Rightward cardiomediastinal shift has increased in the setting of the decreased effusion. The right lung may n ot have reexpanded further related to scarring. 3. There are 2 stable right adrenal enrique omas. Thank you for letting us participate in the care of this patient. For questions regarding this report, please contact [facility] number below. Otf Jose MD IMG CT ORDERABLES Anaerobic Culture (10/31/2019 10:40 AM EDT) [facility] Method Time Signature Anaerobic No anaerobic [facility] Culture organisms [facility] LABORATORY Specimen Anatomical Collection Method Collection Time Receive d Time (Source) Location / / Volume Laterality Pleural fluid 10/31/2019 10:40 10/31/2019 2:30 specimen AM EDT PM EDT (specimen) Comment: RIGHT PLEURX Resulting Agency Comment Spec In Lab Romina MENJIVAR MICROBIOLOGY - GENERAL ORDER [place] Performing Organization Address City/[facility]/ZIP Code Phon e Number [address] Body Fluid Culture, Aerobic (10/31/2019 10:40 AM EDT) Component Value Ref Test Analysis Performed At Patholo gist Range Method Time Signature Body Fluid No growth [facility] LABORATORY Gram Stain Cytocentrifuge Gram Stain performed [facility] No microorganisms seen. [facility] LABORATORY Specimen Anatomical Collection Method Collection Time Receive d Time (Source) Location / / Volume Laterality Pleural fluid 10/31/2019 10:40 10/31/2019 specimen AM EDT 11:20 AM EDT (specimen) Comment: RIGHT PLEURX Resulting Agency Comment Spec In Lab Romina MENJIVAR MICROBIOLOGY - GENERAL ORDER [place]ORE Performing Organization Address City/[facility]/[place] [address] (ABNORMAL) Vancomycin, trough (10/31/2019 5:26 AM EDT) P athologist Signature Vanc Trough 24.8 mg/L [facility] (Critical) [facility] Comment: Called by: ssd, Read back by: Juan abbott, Date/Time:10/31/19 06:28. Therapeutic range for complicated infect ions such as bacteremia, endocarditis, osteomyelitis, meningitis, and hospital- acquired pneumonia caused by S. aureus: 15-20 mg/L Therapeutic range for other indications: 10-15 mg/L Toxic: >20 mg/L Reference: Vancomycin Therapeutic Monitoring: Laisha arredondo and Recommendations from the ASHP, IDSA and SIDP Task Force. ??Am J Health- Syst Pharm. 2009; 66:82-98 Specimen Anatomical Collection Method Collection Time Receive d Time (Source) Location / / Volume Laterality Blood specimen 10/31/2019 5:26 AM 020 5:43 (specimen) EDT AM EDT Resulting Agency Comment Spec In Lab Otf Jose MD CHEMISTRY ORDERABLES Performing Organization Address City/State/ZIP [place] [address] (ABNORMAL) Basic Metabolic Panel (non-fasting) (10/31/2019 5:26 AM EDT) P athologist Signature Glucose Lvl 125 65 - 199 [facility] mg/dL [facility] Comment: Diabetes: >=200 mg/dL plus symp toms BUN 16 10 - 20 mg/dL [facility] Creatinine 1.06 0.80 - 1.50 mg/dL [facility] LAB[facility] Sodium 132 (L) 135 - 145 mmol/L [facility] Potassium 4.6 3.5 - 5.0 mmol/L [facility] Comment: Please note: ??Patients with WBC >100,00 0 may have falsely elevated Potassium levels. ??For accurate Potassium quantif ication in these patients send serum separator tube (gold top) for subsequent determinations. ??Contact the Clinical Chemistry Laboratory if there are any qu estions. Chloride 96 (L) 98 - 107 mmol/L [facility] CO2 23 22 - 31 mmol/L [facility] Anion Gap 13 5 - 15 mmol/L [facility] Calcium 8.9 8.5 - 10.5 mg/dL [facility] Estimated GFR 72 >=60 mL/min/1.73 m?? [facility] Comment: The eGFR was calculated using the CKD-EP I equation. As with all creatinine based estimates of kidney function, eGFR values calculated with the CKD-EPI equation are not accurate in patients wi th acute kidney failure, extremes of body mass or the acutely ill. [email or web address] eGFR 83 >=60 mL/min/1.73 m?? [facility] Comment: The eGFR was calculated using the CKD-EP I equation. As with all creatinine based estimates of kidney function, eGFR values calculated with the CKD-EPI equation are not accurate in patients wi th acute kidney failure, extremes of body mass or the acutely ill. [email or web address] Specimen Anatomical Collection Method Collection Time Receive d Time (Source) Location / / Volume Laterality Blood specimen 10/31/2019 5:26 AM 020 5:43 (specimen) EDT AM EDT Resulting Agency Comment Spec In Lab Otf Jose MD CHEMISTRY ORDERABLES Performing Organization Address City/State/ZIP [place] [address] (ABNORMAL) Hemogram (10/31/2019 5:26 AM EDT) Analysis Performed At Patho logist Time Signature WBC 12.3 (H) 4.0 - 9.5 [facility] x[facility](3[facility] LABORATORY RBC 5.07 4.58 - [facility]54 [facility] x10(6)/[facility] LABORATORY Hemoglobin 12.1 (L) 13.7 - [facility] 16.5 gm/dL [facility] LABORATORY Hematocrit 39.6 (L) 40.5 - [facility] 48.5 % [facility] LABORATORY MCV 78.1 (L) 82.9 - [facility] 93.1 [facility] LABORATORY MCH 23.9 (L) 27.5 - [facility] 32.1 pg [facility] LABORATORY MCHC 30.6 (L) 32.0 - [facility] 35.7 gm/dL [facility] LABORATORY Platelets 412 (H) 145 - 357 [facility] x10(3)/[facility] LABORATORY RDWSD 47.7 (H) 36.0 - [place] 45.0 [facility] LABORATORY RDWCV 16.9 (H) 11.4 - [place] 13.8 % [facility] LABORATORY MPV 8.4 7.6 - 12.9 [facility] LABORATORY nRBC % Auto 0.0 % [facility] LABORATORY nRBC Abs Auto 0.000 0.000 - [place] 0.000 [facility] x10(3)/[facility] LABORATORY Specimen Anatomical Collection Method Collection Time Receive d Time (Source) Location / / Volume Laterality Blood specimen 10/31/2019 5:26 AM 020 5:43 (specimen) EDT AM EDT Resulting Agency Comment Spec In Lab Otf Jose MD HEMATOLOGY ORDERABLES Performing Organization Address City/State/ZIP Code [facility] e [place] [id number] XR Chest PA & Lateral (Generic) (10/30/2019 5:22 AM EDT) Anatomical Region Laterality Modality Chest N/A Digital Radiography Specimen (Source) Anatomical Location Collection Method / Collectio n Time Received Time / Laterality Volume Impressions 10/30/2019 6:26 AM EDT FINDINGS/IMPRESSION: Redemonstrated RIGHT hydropneumothorax, with mild change in air and fluid components (probably mildly decreased fl uid component). Similar nonspecific streaky LEFT basilar opacity. Persistent rightward mediastinal shift. RIGHT Pleurx drain redemonstrated. RIGHT Medip ort similar, with catheter tip projecting over the upper chest. Thank you for letting us participate in the care of this patient. For questions regarding this report, please contact e number below. ? Narrative 10/30/2019 6:26 AM EDT EXAMINATION: XR CHEST PA AND LATERAL (GENERIC) CLINICAL HISTORY: h/o lung cancer w recu rrent pleural effusion s/p pleurx c/b empyema, now s/p tpa/dornase, please marleen l changes/effusion/ptx TECHNIQUE: PA and lateral views of the chest COMPARISON: October 29, 2019 Procedure Note Sandip Frias MD - 10/30/2019 EXAMINATION: XR CHEST PA AND LATERAL (GE NERIC) CLINICAL HISTORY: h/o lung cancer w recu rrent pleural effusion s/p pleurx c/b empyema, now s/p tpa/dornase, please marleen l changes/effusion/ptx TECHNIQUE: PA and lateral views of the chest COMPARISON: October 29, 2019 IMPRESSION FINDINGS/IMPRESSION: Redemonstrated RIGHT hydropneumothorax, with mild change in air and fluid components (probably mildly decreased fl uid component). Similar nonspecific streaky LEFT basilar opacity. Persistent rightward mediastinal shift. RIGHT Pleurx drain redemonstrated. RIGHT Medip ort similar, with catheter tip projecting over the upper chest. Thank you for letting us participate in the care of this patient. For questions regarding this report, please contact e number below. Otf Jose MD IMG DX ORDERABLES (ABNORMAL) Differential, Automated (10/30/2019 4:13 AM EDT) [facility] Method Time Signature Neutrophils % 78.8 % [facility] LABORATORY Neutr Abs (ANC) 7.66 (H) 1.70 - [facility] 6.10 [facility] x10(3)/[facility] L LABORATORY Lymphocytes % 8.6 % [facility] LABORATORY Lymphocytes Abs 0.8 (L) 0.9 - 3.2 [facility] x10(3)/[facility] LABORATORY Monocytes % 7.6 % [facility] LABORATORY Monocyte Abs 0.7 0.3 - 0.9 [facility] x10(3)/[facility] LABORATORY Eosinophils % 3.8 % [facility] LABORATORY Eosinophils Abs 0.4 0.0 - 0.4 [facility] x10(3)/[facility] LABORATORY Basophils % 0.6 % [facility] LABORATORY Basophils Abs 0.1 0.0 - 0.1 [facility] x10(3)/[facility] LABORATORY Immature Gran % 0.60 % [facility] LABORATORY Comment: Immature granulocytes(IG's)percentage an d absolute count will include metamyelocytes, myelocytes, and promyelo cytes. Blood smears from CBCs yielding IG's will be scanned manually for tiffani castro. If this scan disagrees with the automated IG or if promyelocytes are not ed, a manual differential will be performed. Marylin [place] Abs 0.06 (H) 0.00 - 0.04 x10(3)/[facility] LABORATORY Specimen Anatomical Collection Method Collection Time Receive d Time (Source) Location / / Volume Laterality Blood specimen 10/30/2019 4:13 AM 020 4:34 (specimen) EDT AM EDT Resulting Agency Comment Spec In Lab Belen MENJIVAR HEMATOLOGY ORDERABLES Performing Organization Address City/State/ZIP [place] [address] (ABNORMAL) Hemogram (10/30/2019 4:13 AM EDT) Analysis Performed At Patho logist Time Signature WBC 9.7 (H) 4.0 - 9.5 [facility] x10(3)/[facility] LABORATORY RBC 4.35 (L) 4.58 - [facility] 5.54 [facility] x10(6)/[facility] LABORATORY Hemoglobin 10.4 (L) 13.7 - [facility] 16[facility] gm/dL [facility] LABORATORY Hematocrit 34.1 (L) 40.5 - [facility] 48.5 % [facility] LABORATORY MCV 78.4 (L) 82.9 - [facility] 93.1 [facility] LABORATORY MCH 23.9 (L) 27.5 - [facility] SILVIO 32.1 pg [facility] LABORATORY MCHC 30.5 (L) 32.0 - [facility] 35.7 gm/dL [facility] LABORATORY Platelets 379 (H) 145 - 357 [facility] x10(3)/[facility] LABORATORY RDWSD 47.5 (H) 36.0 - [facility] 45.0 [facility] LABORATORY RDWCV 16.6 (H) 11.4 - [facility] SILVIO 13.8 % [facility] LABORATORY MPV 8.6 7.6 - 12.9 [facility] LABORATORY nRBC % Auto 0.0 % [facility] LABORATORY nRBC Abs Auto 0.000 0.000 - [facility] 0.000 [facility] x10(3)/[facility] LABORATORY Specimen Anatomical Collection Method Collection Time Receive d Time (Source) Location / / Volume Laterality Blood specimen 10/30/2019 4:13 AM 020 4:34 (specimen) EDT AM EDT Resulting Agency Comment Spec In Lab Belen MENJIVAR HEMATOLOGY ORDERABLES Performing Organization Address City/State/ZIP [place] [address] (ABNORMAL) Basic Metabolic Panel (non-fasting) (10/30/2019 4:13 AM EDT) athologist Signature Glucose Lvl 114 65 - 199 [facility] mg/dL [facility] LABORATORY Comment: Diabetes: >=200 mg/dL plus symp toms BUN 14 10 - 20 mg/dL [facility] LABORATORY Creatinine 0.90 0.80 - 1.50 mg/dL [facility] LABORATORY Sodium 131 (L) 135 - 145 mmol/L [facility] LABORATORY Potassium 4.4 3.5 - 5.0 mmol/L [facility] LABORATORY Comment: Please note: ??Patients with WBC >100,00 0 may have falsely elevated Potassium levels. ??For accurate Potassium quantif ication in these patients send serum separator tube (gold top) for subsequent determinations. ??Contact the Clinical Chemistry Laboratory if there are any qu estions. Chloride 98 98 - 107 mmol/L [facility] LABORATORY CO2 23 22 - 31 mmol/L [facility] LABORATORY Anion Gap 10 5 - 15 mmol/L [facility] LABORATORY Calcium 8.7 8.5 - 10.5 mg/dL [facility] LABORATORY Estimated GFR 87 >=60 mL/min/1.73 m?? [facility] LABORATORY Comment: The eGFR was calculated using the CKD-EP I equation. As with all creatinine based estimates of kidney function, eGFR values calculated with the CKD-EPI equation are not accurate in patients wi th acute kidney failure, extremes of body mass or the acutely ill. [email or web address] eGFR 101 >=60 mL/min/1.73 m?? [facility] LABORATORY Comment: The eGFR was calculated using the CKD-EP I equation. As with all creatinine based estimates of kidney function, eGFR values calculated with the CKD-EPI equation are not accurate in patients wi th acute kidney failure, extremes of body mass or the acutely ill. [email or web address] [email or web address], [email or web address] Specimen Anatomical Collection Method Collection Time Receive d Time (Source) Location / / Volume Laterality Blood specimen 10/30/2019 4:13 AM 020 4:34 (specimen) EDT AM EDT Resulting Agency Comment Spec In Lab Otf Jose MD CHEMISTRY ORDERABLES Performing Organization Address [facility]/ZIP Code Phon e Number [address] Vancomycin, trough (10/29/2019 1:39 PM EDT) athologist Signature Vanc Trough 13.6 mg/L [facility] LABORATORY Comment: Therapeutic range for complicated infect ions such as bacteremia, endocarditis, osteomyelitis, meningitis, and hospital- acquired pneumonia caused by S. aureus: 15-20 mg/L Therapeutic range for other indications: 10-15 mg/L Toxic: >20 mg/L Reference: Vancomycin Therapeutic Monitoring: Laisha arredondo and Recommendations from the ASHP, IDSA and SIDP Task Force. ??Am J Health- Syst Pharm. 2009; 66:82-98 Specimen Anatomical Collection Method Collection Time Receive d Time (Source) Location / / Volume Laterality Blood specimen 10/29/2019 1:39 PM 020 1:44 (specimen) EDT PM EDT Resulting Agency Comment Spec In Lab Otf Jose MD CHEMISTRY ORDERABLES Performing Organization Address City/[facility]/ZIP Code Phon e Number [address] (ABNORMAL) Differential, Automated (10/29/2019 9:29 AM EDT) Patholo gist Method Time Signature Neutrophils % 86.2 % [facility] LABORATORY Neutr Abs (ANC) 8.55 (H) 1.70 - [facility] 6.10 [facility] x10(3)/[facility] L LABORATORY Lymphocytes % 6.0 % [facility] LABORATORY Lymphocytes Abs 0.6 (L) 0.9 - 3.2 [facility] x10(3)/[facility] LABORATORY Monocytes % 3.5 % [facility] LABORATORY Monocyte Abs 0.4 0.3 - 0.9 [facility] x10(3)/[facility] LABORATORY Eosinophils % 3.1 % [facility] LABORATORY Eosinophils Abs 0.3 0.0 - 0.4 [facility] x10(3)/[facility] LABORATORY Basophils % 0.5 % [facility] LABORATORY Basophils Abs 0.0 0.0 - 0.1 [facility] x10(3)/[facility] LABORATORY Immature Gran % 0.70 % [facility] LABORATORY Comment: Immature granulocytes(IG's)percentage an d absolute count will include metamyelocytes, myelocytes, and promyelo cytes. Blood smears from CBCs yielding IG's will be scanned manually for concor dance. If this scan disagrees with the automated IG or if promyelocytes are not ed, a manual differential will be performed. Marylin Gran Abs 0.07 (H) 0.00 - 0.04 x10(3)/[facility] LABORATORY Specimen Anatomical Collection Method Collection Time Receive d Time (Source) Location / / Volume Laterality Blood specimen 10/29/2019 9:29 AM 020 9:40 (specimen) EDT AM EDT Resulting Agency Comment Spec In Lab Bel[place] MENJIVAR HEMATOLOGY ORDERABLES Performing Organization Address City/State/ZIP [place] [address] (ABNORMAL) Hemogram (10/29/2019 9:29 AM EDT) Analysis Performed At Patho logist Time Signature WBC 9.9 (H) 4.0 - 9.5 [facility] x10(3)/[facility] LABORATORY RBC 4.55 (L) 4.58 - [facility] 5.54 [facility] x10(6)/[facility] LABORATORY Hemoglobin 11.1 (L) 13.7 - [facility] 16.5 gm/dL [facility] LABORATORY Hematocrit 35.9 (L) 40.5 - [facility] 48.5 % [facility] LABORATORY MCV 78.9 (L) 82.9 - [facility] 93.1 [facility] LABORATORY MCH 24.4 (L) 27.5 - [place] 32.1 pg [facility] LABORATORY MCHC 30.9 (L) 32.0 - [facility] SILVIO 35.7 gm/dL [facility] LABORATORY Platelets 340 145 - 357 [facility] x10(3)/[facility] LABORATORY RDWSD 47.7 (H) 36.0 - [facility] 45.0 [facility] LABORATORY RDWCV 16.8 (H) 11.4 - [facility] 13.8 % [facility] LABORATORY MPV 8.5 7.6 - 12.9 [facility] LABORATORY nRBC % Auto 0.0 % [facility] LABORATORY nRBC Abs Auto 0.000 0.000 - [facility] 0.000 [facility] x10(3)/[facility] LABORATORY Specimen Anatomical Collection Method Collection Time Receive d Time (Source) Location / / Volume Laterality Blood specimen 10/29/2019 9:29 AM 020 9:40 (specimen) EDT AM EDT Resulting Agency Comment Spec In Lab Belen MENJIVAR HEMATOLOGY ORDERABLES Performing Organization Address City/State/ZIP [place] [address] (ABNORMAL) Basic Metabolic Panel (non-fasting) (10/29/2019 9:29 AM EDT) P athologist Signature Glucose Lvl 224 (H) 65 - 199 [facility] mg/dL [facility] LABORATORY Comment: Diabetes: >=200 mg/dL plus symp toms BUN 15 10 - 20 mg/dL [facility] LABORATORY Creatinine 1.15 0.80 - 1.50 mg/dL [facility] LABORATORY Sodium 133 (L) 135 - 145 mmol/L [facility] LABORATORY Potassium 4.4 3.5 - 5.0 mmol/L [facility] LABORATORY Comment: Please note: ??Patients with WBC >100,00 0 may have falsely elevated Potassium levels. ??For accurate Potassium quantif ication in these patients send serum separator tube (gold top) for subsequent determinations. ??Contact the Clinical Chemistry Laboratory if there are any qu estions. Chloride 97 (L) 98 - 107 mmol/L [facility] LABORATORY CO2 22 22 - 31 mmol/L [facility] LABORATORY Anion Gap 14 5 - 15 mmol/L [facility] LABORATORY Calcium 8.8 8.5 - 10.5 mg/dL [facility] LABORATORY Estimated GFR 65 >=60 mL/min/1.73 m?? [facility] LABORATORY Comment: The eGFR was calculated using the CKD-EP I equation. As with all creatinine based estimates of kidney function, eGFR values calculated with the CKD-EPI equation are not accurate in patients wi th acute kidney failure, extremes of body mass or the acutely ill. [email or web address] [email or web address], [email or web address] eGFR 75 >=60 mL/min/1.73 m?? [facility] LABORATORY Comment: The eGFR was calculated using the CKD-EP I equation. As with all creatinine based estimates of kidney function, eGFR values calculated with the CKD-EPI equation are not accurate in patients wi th acute kidney failure, extremes of body mass or the acutely ill. [email or web address] [email or web address], [email or web address] Specimen Anatomical Collection Method Collection Time Receive d Time (Source) Location / / Volume Laterality Blood specimen 10/29/2019 9:29 AM 020 9:40 (specimen) EDT AM EDT Resulting Agency Comment Spec In Lab Otf Jose MD CHEMISTRY ORDERABLES Performing Organization Address City/State/ZIP [place] [address] XR Chest PA & Lateral (Generic) (10/29/2019 6:31 AM EDT) Anatomical Region Laterality Modality Chest N/A Digital Radiography Specimen (Source) Anatomical Location Collection Method / Collectio n Time Received Time / Laterality Volume Impressions 10/29/2019 8:10 AM EDT Right-sided hydropneumothorax, decrease in fluid component and increase in air component. New left lower lobe opacity, concerning for pneumonia. Thank you for letting us participate in the care of this patient. For questions regarding this report, please contact e number below. ? Narrative 10/29/2019 8:10 AM EDT EXAMINATION: XR CHEST PA AND LATERAL (GENERIC) CLINICAL HISTORY: s/p x2 cycles tpa/khari ase, eval drainage/eff/changes TECHNIQUE: PA and lateral views of the chest COMPARISON: 10/28/2019 FINDINGS: Right-sided Port-A-Cath unchanged in pos ition. Right-sided pleural drainage catheter unchanged in position. There is a large right hydropneumothorax with decrease in fluid component and increase in air component. Cardiomediastinal silhouette is unchanged. No left pneumot horax or left pleural effusion. There is a new subtle left lower lobe opacity. Procedure Note Sulaiman Cagle MD - 10/29/2019Formatting o f this note might be different from the original. EXAMINATION: XR CHEST PA AND LATERAL (GE NERIC) CLINICAL HISTORY: s/p x2 cycles tpa/khari ase, eval drainage/eff/changes TECHNIQUE: PA and lateral views of the chest COMPARISON: 10/28/2019 FINDINGS: Right-sided Port-A-Cath unchanged in pos ition. Right-sided pleural drainage catheter unchanged in position. There is a large right hydropneumothorax with decrease in fluid component and increase in air component. Cardiomediastinal silhouette is unchanged. No left pneumot horax or left pleural effusion. There is a new subtle left lower lobe opacity. IMPRESSION Right-sided hydropneumothorax, decrease in fluid component and increase in air component. New left lower lobe opacity, concerning for pneumonia. Thank you for letting us participate in the care of this patient. For questions regarding this report, please contact e number below. Otf Jose MD IMG DX ORDERABLES (ABNORMAL) Differential, Automated (10/28/2019 11:39 AM EDT) [facility] Method Time Signature Neutrophils % 84.3 % [facility] LABORATORY Neutr Abs (ANC) 9.78 (H) 1.70 - [facility] 6.10 [facility] x10(3)/[facility] LABORATORY Lymphocytes % 7.2 % [facility] LABORATORY Lymphocytes Abs 0.8 (L) 0.9 - 3.2 [facility] x10(3)/[facility] LABORATORY Monocytes % 5.7 % [facility] LABORATORY Monocyte Abs 0.7 0.3 - 0.9 [facility] x10(3)/[facility] LABORATORY Eosinophils % 1.7 % [facility] LABORATORY Eosinophils Abs 0.2 0.0 - 0.4 [facility] x10(3)/[facility] LABORATORY Basophils % 0.5 % [facility] LABORATORY Basophils Abs 0.1 0.0 - 0.1 [facility] x10(3)/[facility] LABORATORY Immature Gran % 0.60 % [facility] LABORATORY Comment: Immature granulocytes(IG's)percentage an d absolute count will include metamyelocytes, myelocytes, and promyelo cytes. Blood smears from CBCs yielding IG's will be scanned manually for concor dance. If this scan disagrees with the automated IG or if promyelocytes are not ed, a manual differential will be performed. Marylin Gran Abs 0.07 (H) 0.00 - 0.04 x10(3)/[facility] LABORATORY Specimen Anatomical Collection Method Collection Time Receive d Time (Source) Location / / Volume Laterality Blood specimen 10/28/2019 11:39 0 (specimen) AM EDT 11:47 AM EDT Resulting Agency Comment Spec In Lab Lula MENJIVAR HEMATOLOGY ORDERABLES Performing Organization Address City/State/[place] [address] (ABNORMAL) Hemogram (10/28/2019 11:39 AM EDT) Analysis Performed At Patho logist Time Signature WBC 11.6 (H) 4.0 - 9.5 [facility] SILVIO x10(3)/[facility] LABORATORY RBC 4.32 (L) 4.58 - [place] 5.54 [facility] x10(6)/[facility] LABORATORY Hemoglobin 10.3 (L) 13.7 - [facility] 16.[facility] gm/dL [facility] LABORATORY Hematocrit 33.8 (L) 40.5 - [facility] 48.5 % [facility] LABORATORY MCV 78.2 (L) 82.9 - [facility] 93.1 [facility] LABORATORY MCH 23.8 (L) 27.5 - [place] 32.1 pg [facility] LABORATORY MCHC 30.5 (L) 32.0 - [place] 35.7 gm/dL [facility] LABORATORY Platelets 341 145 - 357 [facility] x10(3)/[facility] LABORATORY RDWSD 47.8 (H) 36.0 - [facility] SILVIO 45.0 [facility] LABORATORY RDWCV 16.6 (H) 11.4 - [facility] SILVIO 13.8 % [facility] LABORATORY MPV 8.6 7.6 - 12.9 [facility] SILVIO [facility] LABORATORY nRBC % Auto 0.0 % [facility] LABORATORY nRBC Abs Auto 0.000 0.000 - [place] 0.000 [facility] x10(3)/[facility] LABORATORY Specimen Anatomical Collection Method Collection Time Receive d Time (Source) Location / / Volume Laterality Blood specimen 10/28/2019 11:39 0 (specimen) AM EDT 11:47 AM EDT Resulting Agency Comment Spec In Lab Lula MENJIVAR HEMATOLOGY ORDERABLES Performing Organization Address City/State/[place] [address] (ABNORMAL) Basic Metabolic Panel (non-fasting) (10/28/2019 11:39 AM EDT) P athologist Signature Glucose Lvl 117 65 - 199 [facility] mg/dL [facility] LABORATORY Comment: Diabetes: >=200 mg/dL plus symp toms BUN 14 10 - 20 mg/dL [facility] LABORATORY Creatinine 1.20 0.80 - 1.50 mg/dL [facility] LABORATORY Sodium 132 (L) 135 - 145 mmol/L [facility] LABORATORY Potassium 4.5 3.5 - 5.0 mmol/L [facility] LABORATORY Comment: Please note: ??Patients with WBC >100,00 0 may have falsely elevated Potassium levels. ??For accurate Potassium quantif ication in these patients send serum separator tube (gold top) for subsequent determinations. ??Contact the Clinical Chemistry Laboratory if there are any qu estions. Chloride 96 (L) 98 - 107 mmol/L [facility] LABORATORY CO2 22 22 - 31 mmol/L [facility] LABORATORY Anion Gap 14 5 - 15 mmol/L [facility] LABORATORY Calcium 8.5 8.5 - 10.5 mg/dL [facility] LABORATORY Estimated GFR 62 >=60 mL/min/1.73 m?? [facility] LABORATORY Comment: The eGFR was calculated using the CKD-EP I equation. As with all creatinine based estimates of kidney function, eGFR values calculated with the CKD-EPI equation are not accurate in patients wi th acute kidney failure, extremes of body mass or the acutely ill. [email or web address] [email or web address], [email or web address] eGFR 72 >=60 mL/min/1.73 m?? [facility] LABORATORY Comment: The eGFR was calculated using the CKD-EP I equation. As with all creatinine based estimates of kidney function, eGFR values calculated with the CKD-EPI equation are not accurate in patients wi th acute kidney failure, extremes of body mass or the acutely ill. [email or web address] Specimen Anatomical Collection Method Collection Time Receive d Time (Source) Location / / Volume Laterality Blood specimen 10/28/2019 11:39 0 (specimen) AM EDT 11:47 AM EDT Resulting Agency Comment Spec In Lab Otf Jose MD CHEMISTRY ORDERABLES Performing Organization Address City/State/ZIP [place] [address] XR Chest PA & Lateral (Generic) (10/28/2019 10:46 AM EDT) Anatomical Region Laterality Modality Chest N/A Digital Radiography Specimen (Source) Anatomical Location Collection Method / Collectio n Time Received Time / Laterality Volume Impressions 10/28/2019 10:51 AM EDT Decreased right-sided pleural fluid at the base, with air now present within the pleural space. Thank you for letting us participate in the care of this patient. For questions regarding this report, please contact e number below. ? Narrative 10/28/2019 10:51 AM EDT EXAMINATION: XR CHEST PA AND LATERAL (GENERIC) CLINICAL HISTORY: s/p x1 cycle tpa dorna se to RCT, eval change/eff/ptx TECHNIQUE: AP and lateral views of the c hest. COMPARISON: 10/27/2019. FINDINGS: Mediport catheter in unchanged position. Right-sided chest tube is poorly visible on the frontal view, bett er demonstrated on the lateral view. Increased right hemithorax volume loss w ith greater ipsilateral cardiomediastinal shift. Decreased pleur al fluid at the right base, with a small amount of air now present within the ple ural space, projecting by the lower right lateral hemithorax. Left lung is c lear. No pleural fluid on the left. Procedure Note Temitope Guerrier MD - 10/28/2019Formatt ing of this note might be different from the original. EXAMINATION: XR CHEST PA AND LATERAL (GE NERIC) CLINICAL HISTORY: s/p x1 cycle tpa dorna se to RCT, eval change/eff/ptx TECHNIQUE: AP and lateral views of the c hest. COMPARISON: 10/27/2019. FINDINGS: Mediport catheter in unchanged position. Right-sided chest tube is poorly visible on the frontal view, bett er demonstrated on the lateral view. Increased right hemithorax volume loss w ith greater ipsilateral cardiomediastinal shift. Decreased pleur al fluid at the right base, with a small amount of air now present within the ple ural space, projecting by the lower right lateral hemithorax. Left lung is c lear. No pleural fluid on the left. IMPRESSION Decreased right-sided pleural fluid at t he base, with air now present within the pleural space. Thank you for letting us participate in the care of this patient. For questions regarding this report, please contact e number below. Otf Jose MD IMG DX ORDERABLES Calcofluor White Stain (10/28/2019 9:00 AM EDT) [facility] Method Time Signature Calcofluor Calcofluor BRIA Stain White SILVIO Preparation: [facility] LABORATORY Specimen Anatomical Collection Method Collection Time Receive d Time (Source) Location / / Volume Laterality Pleural fluid 10/28/2019 9:00 AM 10/28/19 20 specimen EDT 11:22 AM EDT (specimen) Comment: RIGHT Resulting Agency Comment Spec In Lab Lula MENJIVAR MICROBIOLOGY - GENERAL ORDER LENORE Performing Organization Address City/State/ZIP [place] [address] Fungus culture (10/28/2019 9:00 AM EDT) [facility] Method Time Signature Fungus No Fungus [facility] Culture isolated [facility] Specimen Anatomical Collection Method Collection Time Receive d Time (Source) Location / / Volume Laterality Pleural fluid 10/28/2019 9:00 AM 10/28/19 20 specimen EDT 11:22 AM EDT (specimen) Comment: RIGHT Resulting Agency Comment Spec In Lab Lula MENJIVAR MICROBIOLOGY - GENERAL ORDER LENORE Performing Organization Address City/[facility]/ZIP Code Phon e Number [address] Anaerobic Culture (10/28/2019 9:00 AM EDT) Patholo gist Method Time Signature Anaerobic No anaerobic BRIA SILVIO Culture organisms [facility] LABORATORY Specimen Anatomical Collection Method Collection Time Receive d Time (Source) Location / / Volume Laterality Pleural fluid 10/28/2019 9:00 AM 10/28/19 20 specimen EDT 11:22 AM EDT (specimen) Comment: RIGHT Resulting Agency Comment Spec In Lab Lula MENJIVAR MICROBIOLOGY - GENERAL ORDER LENORE Performing Organization Address City/[facility] Code Phon e Number [address] (ABNORMAL) Body Fluid Culture, Aerobic (10/28/2019 9:00 AM EDT) Component Value Ref Test Analysis Performed At [facility] Shop2 Range Method Time Signature Body Fluid One colony of BRIA Culture Corynebacterium SILVIO species probable [facility] contaminant () [facility] LABORATORY Gram Stain Cytocentrifuge Gram Stain performed BRIA No Neutrophils seen. SILVIO Rare Gram Positive [facility] Results called to and read back by [facility] () LABORATORY Organism Corynebacterium BRIA species (A) [facility] LABORATORY Specimen Anatomical Collection Method Collection Time Receive d Time (Source) Location / / Volume Laterality Pleural fluid 10/28/2019 9:00 AM 10/28/19 20 specimen EDT 11:22 AM EDT (specimen) Comment: RIGHT Resulting Agency Comment Spec In Lab Organism Antibiotic Method Susceptibility Corynebacterium species Ciprofloxacin MINIMUM INHIBITORY 1: Se nsitive CONCENTRATION Corynebacterium species Clindamycin MINIMUM INHIBITORY 1: In termediate CONCENTRATION Corynebacterium species Penicillin MINIMUM INHIBITORY 0.064 : Sensitive CONCENTRATION Corynebacterium species Vancomycin MINIMUM INHIBITORY 1: Se nsitive CONCENTRATION Lula MENJIVAR MICROBIOLOGY - GENERAL ORDER LENORE Performing Organization Address City/[facility]/ZIP Code Phon e Number [address] Blood culture (10/27/2019 5:39 PM EDT) [facility] Method Time Signature Blood Culture No growth BRIA ANGUIANO at 5 days. [facility] LABORATORY Specimen Anatomical Collection Method Collection Time Receive d Time (Source) Location / / Volume Laterality Blood specimen 10/27/2019 5:39 PM 020 6:19 (specimen) EDT PM EDT Comment: #1 LAC Resulting Agency Comment Spec In Lab Monty Cunningham MD MICROBIOLOGY - BLOOD ORDERAB LES Performing Organization Address City/State/ZIP Code Phon [place] [address] XR Chest PA & Lateral (Generic) (10/27/2019 4:34 PM EDT) Anatomical Region Laterality Modality Chest N/A Digital Radiography Specimen (Source) Anatomical Location Collection Method / Collectio n Time Received Time / Laterality Volume Impressions 10/27/2019 4:39 PM EDT Unchanged appearance to loculated RIGHT pleural fluid collections with a slight increase in the RIGHT lung base pleural fluid. Loss in the RIGHT lung. No pneumothorax. Pleurx catheter is in unchanged location. Thank you for letting us participate in the care of this patient. For questions regarding this report, please contact e number below. ? Narrative 10/27/2019 4:39 PM EDT EXAMINATION: XR CHEST PA AND LATERAL (GENERIC) CLINICAL HISTORY: History of pleural eff usion with Pleurx catheter in place. Effusion TECHNIQUE: PA and lateral views of the chest COMPARISON: Prior chest 2 views 10/27/2019, [facility]. FINDINGS: Rotated to the RIGHT with volume loss in the RIGHT hemithorax, loculated pleural fluid. Fluid tracking over the RIGHT jerald g apex. Pleurx catheter with tip in unchanged position. The right-sided Medi port catheter is also unchanged position. LEFT lung is clear. There is loss of the RIGHT cardiac silhouette, likely related to some combination of loculated pleural fluid and basilar atelectasis or consolidation. Procedure Note Emily Sams MD - 10/27/2019Forma tting of this note might be different from the original. EXAMINATION: XR CHEST PA AND LATERAL (GE NERIC) CLINICAL HISTORY: History of pleural eff usion with Pleurx catheter in place. Effusion TECHNIQUE: PA and lateral views of the chest COMPARISON: Prior chest 2 views 10/27/2019, [facility]. FINDINGS: Rotated to the RIGHT with volume loss in the RIGHT hemithorax, loculated pleural fluid. Fluid tracking over the RIGHT jerald g apex. Pleurx catheter with tip in unchanged position. The right-sided Medi port catheter is also unchanged position. LEFT lung is clear. There is loss of the RIGHT cardiac silhouette, likely related to some combination of loculated pleural fluid and basilar atelectasis or consolidation. IMPRESSION Unchanged appearance to loculated RIGHT pleural fluid collections with a slight increase in the RIGHT lung base pleural fluid. Loss in the RIGHT lung. No pneumothorax. Pleurx catheter is in unchanged location. Thank you for letting us participate in the care of this patient. For questions regarding this report, please contact th e number below. Otf Jose MD IMG DX ORDERABLES Blue Tube HOLD (10/27/2019 4:24 PM EDT) athologist Signature Blue Hold Sample in [facility]. [facility] LABORATORY Specimen Anatomical Collection Method Collection Time Receive d Time (Source) Location / / Volume Laterality Blood specimen Venous Draw / 10/27/2019 4:24 PM 2019 4:33 (specimen) Unknown EDT PM EDT Tamir MENJIVAR HEMATOLOGY ORDERABLES Performing Organization Address City/State/ZIP [place] [address] Gold Tube HOLD (10/27/2019 4:24 PM EDT) P athologist Signature Gold Hold Sample in [facility]. [facility] LABORATORY Specimen Anatomical Collection Method Collection Time Receive d Time (Source) Location / / Volume Laterality Blood specimen Venous Draw / 10/27/2019 4:24 PM 2019 4:32 (specimen) Unknown EDT PM EDT Tamir MENJIVAR CHEMISTRY ORDERABLES Performing Organization Address City/State/ZIP Code Phon e Number [address] (ABNORMAL) Differential, Automated (10/27/2019 4:24 PM EDT) Patholo gist Method Time Signature Neutrophils % 84.1 % [facility] LABORATORY Neutr Abs (ANC) 12.78 (H) 1.70 - [facility] 6.10 [facility] x10(3)/[facility] LABORATORY Lymphocytes % 8.0 % [facility] LABORATORY Lymphocytes Abs 1.2 0.9 - 3.2 [facility] x10(3)/[facility] LABORATORY Monocytes % 6.2 % [facility] LABORATORY Monocyte Abs 0.9 0.3 - 0.9 [facility] x10(3)/[facility] LABORATORY Eosinophils % 0.5 % [facility] Eosinophils Abs 0.1 0.0 - 0.4 [facility] x10(3)/[facility] LABORATORY Basophils % 0.3 % [facility] LABORATORY Basophils Abs 0.0 0.0 - 0.1 [facility] x10(3)/[facility] LABORATORY Immature Gran % 0.90 % [facility] LABORATORY Comment: Immature granulocytes(IG's)percentage an d absolute count will include metamyelocytes, myelocytes, and promyelo cytes. Blood smears from CBCs yielding IG's will be scanned manually for concor dance. If this scan disagrees with the automated IG or if promyelocytes are not ed, a manual differential will be performed. Marylin Gran Abs 0.13 (H) 0.00 - 0.04 x10(3)/[facility] LABORATORY Specimen Anatomical Collection Method Collection Time Receive d Time (Source) Location / / Volume Laterality Blood specimen 10/27/2019 4:24 PM 020 4:32 (specimen) EDT PM EDT Resulting Agency Comment Spec In Lab Tamir MENJIVAR HEMATOLOGY ORDERABLES Performing Organization Address City/State/ZIP [place] [address] (ABNORMAL) Hemogram (10/27/2019 4:24 PM EDT) Analysis Performed At Patho logist Time Signature WBC 15.2 (H) 4.0 - 9.5 [facility] x10(3)/[facility] LABORATORY RBC 4.44 (L) 4.58 - [facility] 5.54 [facility] x10(6)/[facility] LABORATORY Hemoglobin 10.8 (L) 13.7 - [facility] 16.[facility] gm/dL [facility] LABORATORY Hematocrit 34.4 (L) 40.5 - [facility] 48.5 % [facility] LABORATORY MCV 77.5 (L) 82.9 - [facility] 93.1 [facility] LABORATORY MCH 24.3 (L) 27.5 - [facility] 32.1 pg [facility] LABORATORY MCHC 31.4 (L) 32.0 - [facility] 35.7 gm/dL [facility] LABORATORY Platelets 357 145 - 357 [facility] x10(3)/[facility] LABORATORY RDWSD 46.6 (H) 36.0 - [facility] 45.0 [facility] LABORATORY RDWCV 16.5 (H) 11.4 - [facility] 13.8 % [facility] LABORATORY MPV 8.7 7.6 - 12.9 [facility] LABORATORY nRBC % Auto 0.0 % [facility] LABORATORY nRBC Abs Auto 0.000 0.000 - [facility] 0.000 [facility] x10(3)/[facility] LABORATORY Specimen Anatomical Collection Method Collection Time Receive d Time (Source) Location / / Volume Laterality Blood specimen 10/27/2019 4:24 PM 020 4:32 (specimen) EDT PM EDT Resulting Agency Comment Spec In Lab Tamir MENJIVAR HEMATOLOGY ORDERABLES Performing Organization Address City/[facility]/[place] [address] Troponin (10/27/2019 4:24 PM EDT) athologist Signature Troponin-T <0.01 0.00 - 0.00 [facility] ng/mL [facility] LABORATORY Comment: The 99th percentile for Troponin T is le ss than 0.01 ng/mL, any detectable cTnT concentration using this assay should be considered elevated. According to the third universal definit ion of myocardial infarction the following criteria with a clinical prese ntation consistent with acute myocardial ischemia meets the diagnosis for a myocardial infarction ([place]). Detection of a rise and/or fall of cTnT, with at least one value greater than the 99th percentile (> or = 0.01) and wi th at least one of the following ?? Symptoms of ischemia ?? New or presumed new significant ST-se gment-T wave (ST-T) changes or new left bundle branch block (LBBB) ?? Development of pathologic Q waves in the ECG ?? Imaging evidence of new loss of viabl e myocardium or new regional wall motion abnormality ?? Identification of an intracoronary th rombus by angiography or autopsy Samples for cTnT testing should be obtai misael serially upon first assessment and again 3 to 6 hours later. If the clinica l suspicion is high and previous samples have been negative an additional sample may be indicated. Reference: Third [place] Definition of Myocardial Infarction. Journal of the [place] [employer] 2012;60:1581-98 Specimen Anatomical Collection Method Collection Time Receive d Time (Source) Location / / Volume Laterality Blood specimen 10/27/2019 4:24 PM 020 4:32 (specimen) EDT PM EDT Resulting Agency Comment Spec In Lab Monty Cunningham MD CHEMISTRY ORDERABLES Performing Organization Address City/[facility]/[place] [address] (ABNORMAL) Basic Metabolic Panel (non-fasting) (10/27/2019 4:24 PM EDT) athologist Signature Glucose Lvl 102 65 - 199 [facility] mg/dL [facility] LABORATORY Comment: Diabetes: >=200 mg/dL plus symp toms BUN 14 10 - 20 mg/dL [facility] LABORATORY Creatinine 1.04 0.80 - 1.50 mg/dL [facility] LABORATORY Sodium 129 (L) 135 - 145 mmol/L [facility] LABORATORY Potassium 4.4 3.5 - 5.0 mmol/L [facility] LABORATORY Comment: Please note: ??Patients with WBC >100,00 0 may have falsely elevated Potassium levels. ??For accurate Potassium quantif ication in these patients send serum separator tube (gold top) for subsequent determinations. ??Contact the Clinical Chemistry Laboratory if there are any qu estions. Chloride 94 (L) 98 - 107 mmol/L [facility] LABORATORY CO2 24 22 - 31 mmol/L [facility] LABORATORY Anion Gap 11 5 - 15 mmol/L [facility] LABORATORY Calcium 9.1 8.5 - 10.5 mg/dL [facility] LABORATORY Estimated GFR 73 >=60 mL/min/1.73 m?? [facility] LABORATORY Comment: The eGFR was calculated using the CKD-EP I equation. As with all creatinine based estimates of kidney function, eGFR values calculated with the CKD-EPI equation are not accurate in patients wi th acute kidney failure, extremes of body mass or the acutely ill. [email or web address], [email or web address] eGFR 85 >=60 mL/min/1.73 m?? [facility] LABORATORY Comment: The eGFR was calculated using the CKD-EP I equation. As with all creatinine based estimates of kidney function, eGFR values calculated with the CKD-EPI equation are not accurate in patients wi th acute kidney failure, extremes of body mass or the acutely ill. [email or web address], [email or web address] Specimen Anatomical Collection Method Collection Time Receive d Time (Source) Location / / Volume Laterality Blood specimen 10/27/2019 4:24 PM 020 4:32 (specimen) EDT PM EDT Resulting Agency Comment Spec In Lab Monty Cunningham MD CHEMISTRY ORDERABLES Performing Organization Address City/State/ZIP [place] [address] (ABNORMAL) Blood Gas Venous (10/27/2019 4:20 PM EDT) Analysis Performed At Patho logist Time Signature pH Ray 7.41 7.32 - [facility] 7.42 [facility] LABORATORY pCO2 Ray 39 (L) 41 - 51 [facility] LABORATORY pO2 Ray 34 25 - 40 [facility] LABORATORY HCO3 Ray 24.1 mmol/L [facility]ORAT[facility] BE Ray -0.6 mmol/L [facility] LABORATORY Hgb Blood Gas 11.9 (L) 13.7 - [facility] 16.5 gm/dL [facility] LABORATORY O2HB Ray 62.7 % [facility] LABORATORY COHB Ray 1.5 % [facility] LABORATORY Comment: Nonsmokers: 0.5-1.5% COHB Smokers: Variable, but usually less than 10% Toxic: 20-30% COHB Lethal: Greater than 60% COHB METHB Ray 0.3 <=1.5 % [facility] LABORATORY Na Whole Blood 130 (L) 135 - 145 mmol/L [facility] LABORATORY K Whole Blood 4.4 3.5 - 5.0 mmol/L [facility] LABORATORY Comment: Please note: Patients with WBC >100,000 may have falsely elevated Potassium levels. Contact the Clinical Chemistry L aboratory if there are any questions. ICa Whole Blood 1.14 (L) 1.15 - 1.33 mmol/L [facility] LABORATORY Comment: Note: ??Total bilirubin higher than 20 m g/dL may lead to falsely low ionized calcium. CL Whole Blood 97 (L) 98 - 107 mmol/L [facility] LABORATORY Gluc Whole Bld 106 65 - 199 mg/dL [facility] LABORATORY Comment: Diabetes: >=200 mg/dL plus symp toms Lactate WB 1.3 0.5 - 2.2 mmol/L [facility] LABORATORY BGas Source Venous [facility] LABORATORY Specimen Anatomical Collection Method Collection Time Receive d Time (Source) Location / / Volume Laterality Blood specimen Venous Draw / 10/27/2019 4:20 PM 2019 4:30 (specimen) Unknown EDT PM EDT Resulting Agency Comment Spec In Lab Tamir MENJIVAR CHEMISTRY ORDERABLES Performing Organization Address City/State/ZIP [place] [address] EKG 12 Lead (10/27/2019 3:42 PM EDT) Component Value Ref Range Test Analysis Performed Pathologis t Method Time At Signature Ventricular rate 97 BPM MUSE SYSTEM Atrial Rate 97 BPM MUSE SYSTEM P-R Interval 126 ms MUSE SYSTEM QRS Duration 86 ms MUSE SYSTEM Q-T Interval 356 ms MUSE SYSTEM QTC Calculated 452 ms MUSE SYSTEM (Bezet) Calculated P [place] -19 degrees MUSE SYSTEM Calculated T [place] 30 degrees MUSE SYSTEM INTERPRETATION Sinus rhythm with marked sinus arrhythmia MUSE SYSTEM Nonspecific ST abnormality Abnormal ECG When compared with ECG of 26-AUG-2019 09:55, No significant change was found Confirmed by Rosibel Bearden ([id number]) on 10/28/2019 9:44:33 A M Specimen Anatomical Collection Method Collection Time Receive d Time (Source) Location / / Volume Laterality 10/27/2019 3:42 PM 0 9:44 EDT AM EDT Solo Mccabe MD ECG ORDERABLES Performing Organization Address City/State/ZIP Code Phon e Number MUSE SYSTEM documented in this encounter Visit Diagnoses Diagnosis Pleural effusion, malignant Malignant pleural effusion Pleural empyema Empyema without mention of fistula Sequela of Corynebacterium infection Hx of pleural effusion Personal history of other diseases of re spiratory system Pleural empyema Empyema without mention of fistula documented in this encounter Admitting Diagnoses Diagnosis Hx of pleural effusion Personal history of other diseases of re spiratory system documented in this encounter Administered Medications Inactive Administered Medications - up to 3 most recent administrations Medication Order MAR Action Action Date Dose Rate Site acetaminophen (Tylenol) tablet 650 Given 10/30/2019 1:57 PM EDT 650 mg mg 650 mg, Oral, EVERY 6 HOURS PRN, Starting on Tu10/28/19 at 1647, Until Sun11/03/19 at 1548, Pain, Maximum dose of acetaminophen is 4000 mg from all sources in 24 hours., Routine Given 10/28/2019 7:40 PM EDT 650 mg alteplase (CATHFLO) 10 mg in sodium chloride Given 05/2020 12:34 PM EDT 10 mg 0.9% 30 mL 10 mg, Alternative Route- Specify in Admin Instructions, EVERY 12 HOURS, 6 doses, First dose on 10/27/19 at 2100, Last dose on Stephanie 10/30/19 at 1200, Administration is limited to physicians, physician assistants and nurse practitioners. Intrapleural. Administer alteplase via chest tube, then clamp chest tube. Allow alteplase to dwell in chest tube for 1 hour. Unclamp chest tube and allow at least 2 hours of draining, with or without suction., Please specify the medical team approving this medication: Thoracic Surgery, Please specify the TEAM pager of the group who is administering this medication: Chel, Please indicate the name & specialty of the Attending Provider who authorized the use of this medication: Damon Given 10/28/2019 12:04 AM EDT 10 mg alteplase (CATHFLO) 10 mg in sodium chloride Given 0 9:10 PM EDT 10 mg 0.9% 30 mL 10 mg, Alternative Route- Specify in Admin Instructions, EVERY 12 HOURS, 4 doses, First dose on Sun10/29/19 at 0830, Last dose on Sun10/31/19 at 0000, Please contact pharmacy to prepare medications prior to administration . Administration is limited to physicians, physician assistants or nurse practitioners. Intrapleural. Administer alteplase via chest tube, then clamp chest tube. Allow alteplase to dwell in chest tube for 1 hour. Unclamp chest tube and allow at least 2 hours of draining, with or without suction., Please indicate the name & specialty of the Attending Provider who authorized the use of this medication: Damon [id number] Given 10/30/2019 11:42 AM EDT 10 mg Given 10/29/2019 10:43 PM EDT 10 mg amLODIPine (Norvasc) tablet 10 mg Given 11/03/2019 8:39 AM EDT 10 mg 10 mg, Oral, DAILY, First dose on Sun10/28/19 at 0900, Until Discontinued, Routine Given 11/02/2019 10:08 AM EDT 10 mg Given 11/01/2019 9:27 AM EDT 10 mg bisacodyL (Dulcolax) suppository 10 mg 10 mg, Rectal, DAILY PRN, Starting on Sun10/30/19 at 0 831, Until Sun11/03/19 at 1548, Constipation, Routine budesonide-formoteroL (SYMBICORT) Given 11/03/2019 8:39 AM EDT 2 Inhalation 160-4.5 mcg/actuation inhaler 2 Inhalation 2 Inhalation, Inhalation, 2 TIMES DAILY, First dose on Sun10/28/19 at 0000, Until Discontinued, Routine Given 11/02/2019 8:43 PM EDT 2 Inhalation Given 11/01/2019 9:03 PM EDT 2 Inhalation cefTRIAXone (ROCEPHIN) 2 g vial attach New Bag 11/01/2019 3:17 PM EDT 2 g 100 mL/hr to sodium chloride 0.9% 50 mL Mini-Bag Plus 2 g, Intravenous, EVERY 24 HOURS, First dose on Sun10/29/19 at 1545, Until Discontinued, Administer over 30 Minutes, Indication for (Active or Suspected): Other (See comment) New Bag 10/31/2019 3:26 PM EDT 2 g 100 mL/hr New Bag 10/30/2019 3:24 PM EDT 2 g 100 mL/hr chlorthalidone (Hygroten) tablet 25 mg Given 11/03/2019 8:39 AM EDT 25 mg 25 mg, Oral, DAILY, First dose on Sun10/28/19 at 0900, Until Discontinued, Routine Given 11/02/2019 10:10 AM EDT 25 mg Given 11/01/2019 9:27 AM EDT 25 mg docusate sodium (Colace) capsule 100 mg Given 11/03/2019 8:39 AM EDT 100 mg 100 mg, Oral, 3 TIMES DAILY, First dose on Sun10/27/19 at 2100, Until Discontinued, Routine Given 11/02/2019 10:10 AM EDT 100 mg Given 11/01/2019 3:18 PM EDT 100 mg dornase alpha (PULMOZYME) 5 mg in sodium Given 10/28/2019 3:34 P M EDT 5 mg chloride 0.9% 30 mL 5 mg, Alternative Route- Specify in Admin Instructions, EVERY 12 HOURS, 6 doses, First dose on Sun10/27/19 at 2100, Last dose on Sun10/30/19 at 1500, Administration is limited to physicians, physician assistants and nurse practitioners.. Intrapleural. Wait until chest tube has drained for 2 hours after alteplase administration. Administer Dornase via chest tube, then clamp chest tube. Allow Dornase to dwell in chest tube for 1 hour. Unclamp chest tube and allow at least 2 hours of draining, with or without suction., Please specify the medical team approving this medication: Thoracic Surgery, Please specify the TEAM pager of the group who is administering this medication: Chel, Please indicate the name & specialty of the Attending Provider who authorized the use of this medication: Damon Given 10/28/2019 2:56 AM EDT 5 mg dornase alpha (PULMOZYME) 5 mg in sodium Given 10/31/2019 12:07 AM EDT 5 mg chloride 0.9% 30 mL 5 mg, Alternative Route- Specify in Admin Instructions, EVERY 12 HOURS, 4 doses, First dose on Sun10/29/19 at 1100, Last dose on Sun10/31/19 at 0300, Please contact pharmacy to prepare medications prior to administration . Administration is limited to physicians, physician assistants or nurse practitioners. Intrapleural. Wait until chest tube has drained for 2 hours after alteplase administration. Administer Dornase via chest tube, then clamp chest tube. Allow Dornase to dwell in chest tube for 1 hour. Unclamp chest tube and allow at least 2 hours of draining, with or without suction., Please indicate the name & specialty of the Attending Provider who authorized the use of this medication: Damon Munoz thoracic [id number] Given 10/30/2019 3:03 PM EDT 5 mg Given 10/30/2019 1:42 AM EDT 5 mg folic acid (Folvite) tablet 1,000 mcg Given 11/03/2019 8:39 AM EDT 1,000 mcg 1,000 mcg (1 mg), Oral, DAILY, First dose on Sun10/28/19 at 0900, Until Discontinued, Routine Given 11/02/2019 10:10 AM EDT 1,000 mcg Given 11/01/2019 9:27 AM EDT 1,000 mcg heparin (Porcine) subcutaneous injection Given 020 6:19 AM EDT 5,000 Units 5,000 Units 5,000 Units, Subcutaneous, EVERY 8 HOURS SCHEDULED, First dose on Sun10/27/19 at 2200, Until Discontinued, Routine Given 11/02/2019 10:11 PM EDT 5,000 Units Given 11/02/2019 1:29 PM EDT 5,000 Units piperacillin-tazobactam (ZOSYN) New Bag 10/29/2019 1:43 PM 3.375 g 12.5 mL/hr 3.375 g vial attach to sodium EDT chloride 0.9% 50 mL Mini-Bag Plus 3.375 g, Intravenous, EVERY 8 HOURS, First dose on Sun10/27/19 at 2100, Until Discontinued, Administer over 4 Hours, Warning Vesicant/Irritant Medication Do not administer or Y-site with lactated ringers., Indication for (Active or Suspected): Pneumonia (Community) New Bag 10/29/2019 5:48 AM EDT 3.375 g 12.5 mL/hr New Bag 10/28/2019 9:01 PM EDT 3.375 g 12.5 mL/hr piperacillin-tazobactam (ZOSYN) 4.5 New Bag 10/27/2019 6:03 PM EDT 4.5 g 200 mL/hr g vial attach to sodium chloride 0.9% 100 mL Mini-Bag Plus 4.5 g, Intravenous, ONCE, 1 dose, On Sun10/27/19 at 1759, Administer over 0.5 Hours, Warning Vesicant/Irritant Medication Do not administer or Y-site with lactated ringers., Indication for (Active or Suspected): Bacteremia/Sepsis polyethylene glycol (Miralax) packet 17 g Given 10/31/2019 9:29 PM EDT 17 g 17 g, Oral, 2 TIMES DAILY, First dose on Sun10/30/19 at 0900, Until Discontinued, Routine Given 10/31/2019 9:36 AM EDT 17 g Given 10/30/2019 8:21 PM EDT 17 g senna (Senokot) tablet 17.2 mg Given 11/02/2019 6:06 PM EDT 17.2 mg 17.2 mg, Oral, EVERY EVENING, First dose on Sun10/28/19 at 1700, Until Discontinued, Routine Given 10/31/2019 5:39 PM EDT 17.2 mg Given 10/30/2019 5:40 PM EDT 17.2 mg sodium chloride 0.9 % (flush) flush 5 mL Given 11/03/2019 8:43 AM EDT 5 mLs 5 mL, Intravenous, 2 TIMES DAILY, First dose on Sun10/27/19 at 2100, Until Discontinued, Recovery (Recovery-Hospital Unit), Routine Given 11/02/2019 8:44 PM EDT 5 mLs Given 11/02/2019 10:11 AM EDT 5 mLs vancomycin 1 g in 0.9 % sodium New Bag 11/03/2019 2:07 AM EDT 1 g 200 mL/hr chloride 200 mL 1 g, Intravenous, EVERY 12 HOURS, First dose on Sun11/02/19 at 1300, Until Discontinued, Administer over 60 Minutes, Maximum infusion rate is 1 gram/hour. If flushing of the face, neck, upper body, arms, and/or back occurs decrease infusion rate by 50% to reduce the severity of symptoms. This medication may have an associated drug lab level. Please see MAR for scheduled level. Warning Vesicant/Irritant Medication , Indication for (Active or Suspected): Other (See comment) New Bag 11/02/2019 1:29 PM EDT 1 g 200 mL/hr vancomycin 1.5 g in sodium New Bag 11/01/2019 9:04 PM EDT 1.5 g 166.7 mL/hr chloride 0.9% 250 mL 1.5 g, Intravenous, EVERY 12 HOURS, First dose on Sun10/31/19 at 2100, Until Discontinued, Administer over 90 Minutes, Maximum infusion rate is 1 gram/hour. If flushing of the face, neck, upper body, arms, and/or back occurs decrease infusion rate by 50% to reduce the severity of symptoms. This medication may have an associated drug lab level. Please see MAR for scheduled level. Warning Vesicant/Irritant Medication , Indication for (Active or Suspected): Other (See comment) New Bag 11/01/2019 9:27 AM EDT 1.5 g 166.7 mL/hr New Bag 10/31/2019 9:34 PM EDT 1.5 g 166.7 mL/hr vancomycin 2 g in sodium chloride 0.9% New Bag 10/27/2019 6:57 PM EDT 2 g 250 mL/hr 500 mL 2 g, Intravenous, ONCE, 1 dose, On Sun10/27/19 at 1759, Administer over 120 Minutes, Warning Vesicant/Irritant Medication , Indication for (Active or Suspected): Bacteremia/Sepsis vancomycin 2 g in sodium New Bag 10/29/2019 12:02 AM EDT 2,000 mg 250 mL/hr chloride 0.9% 500 mL 2,000 mg, Intravenous, EVERY 12 HOURS, First dose on Sun10/28/19 at 1030, Until Discontinued, Administer over 120 Minutes, Maximum infusion rate is 1 gram/hour. If flushing of the face, neck, upper body, arms, and/or back occurs decrease infusion rate by 50% to reduce the severity of symptoms. This medication may have an associated drug lab level. Please see MAR for scheduled level. Warning Vesicant/Irritant Medication , Indication for (Active or Suspected): Other (See comment) New Bag 10/28/2019 11:13 AM EDT 2,000 mg 250 mL/hr vancomycin 2 g in sodium chloride New Bag 10/31/2019 5:45 AM E DT 2,000 mg 250 mL/hr 0.9% 500 mL 2,000 mg, Intravenous, EVERY 12 HOURS, First dose (after last reorder) on Sun10/29/19 at 1800, Until Discontinued, Administer over 120 Minutes, Maximum infusion rate is 1 gram/hour. If flushing of the face, neck, upper body, arms, and/or back occurs decrease infusion rate by 50% to reduce the severity of symptoms. This medication may have an associated drug lab level. Please see MAR for scheduled level. Warning Vesicant/Irritant Medication , Indication for (Active or Suspected): Other (See comment) New Bag 10/30/2019 5:41 PM EDT 2,000 mg 250 mL/hr New Bag 10/30/2019 5:37 AM EDT 2,000 mg 250 mL/hr vancomycin 750 mg in 0.9% sodium chlorid e 150 mL 750 mg, Intravenous, EVERY 12 HOURS, Fir st dose (after last modification) on Sun11/03/19 at 1400, Until Discontinued, Adm inister over 45 Minutes, Maximum infusion rate is 1 gram/hour. If flushing of the face, neck, upper body, arms, and/or back occurs decrease infusion rate by 50% to reduce the sev erity of symptoms. This medication may have an associated drug lab level. Plea se see MAR for scheduled level. Warning Vesicant/Irritant Medication , In dication for (Active or Suspected): Other (See comment) Vancomycin Level - MAR Order Reminder NOT APPLICABLE, ONCE, On Sun11/04/19 at 1330, 1 dose, This alert will be scheduled by a pharmacist after order placement. T his order is a reminder to nursing staff to release and draw the PRN drug level at t he specified time. It may be necessary to contact phlebotomy 60 minutes prior to t he scheduled due time to assure a timely blood draw. documented in this encounter Active and Recently Administered Medications Times are shown in EDT. Scheduled Medication Order 11/01/2019 11/02/2019 11/03/2019 amLODIPine (Norvasc) tablet 10 mg 0927 (Given - Provider: Cliff Owens RN) 1008 (Given - Provider: Cheyenne Downs RN) 0839 (Given - Provider: Cheyenne Downs RN) 10 mg, Oral, DAILY, First dose on 06/06 at 0900, Until Discontinued, Routine budesonide-formoteroL (SYMBICORT) 160-4.5 mcg/actuatio n inhaler 2 Inhalation 0952 (Given - Provider: Julee Owens RN)210 (Given - Provider: Diana Reddy RN) 0900 (Not Given - Provider: Cheyenne contreras RN - Reason: Patient/family refused)2042 (Given - Provider: Diana Reddy RN) 0839 (Given - Provider: Cheyenne Downs RN) 2 Inhalation, Inhalation, 2 TIMES DAILY, First dose on Sun10/28/19 at 0000, Until Discontinued, Routine cefTRIAXone (ROCEPHIN) 2 g vial attach t o sodium chloride 0.9% 50 mL Mini-Bag Plus (CANCELED) 1517 (New Bag - Provider: Julee contreras RN)1547 (Stopped - Provider: Julee Owens RN) 2 g, Intravenous, EVERY 24 HOURS, First dose on Sun10/29/19 at 1545, Until Discontinued, Administer over 30 Minutes, Indication for (Active or Suspected): Other (See comment) chlorthalidone (Hygroten) tablet 25 mg 0927 (Given - P rovider: Julee Owens RN) 1010 (Given - Provider: Cheyenne Downs RN) 0839 (Give n - Provider: Cheyenne Downs RN) 25 mg, Oral, DAILY, First dose on 06/06 at 0900, Until Discontinued, Routine docusate sodium (Colace) capsule 100 mg 0927 (Given - Provider: Julee Owens RN)1518 (Given - Provider: Julee Owens RN)2100 (Not Given - Provider: Diana Reddy RN - Reason: Patient/family refused) 1010 (Given - Provider: Cheyenne Downs RN)1500 (Not Given - Provider: Cheyenne Downs RN - Reason: Patient/family refused)2100 (Not Given - Provider: Diana Reddy RN - Reason: Patient/family refused) 0839 (Given - Provider: Cheyenne Downs RN) 100 mg, Oral, 3 TIMES DAILY, First dose on Sun10/27/19 at 2100, Until Discontinued, Routine folic acid (Folvite) tablet 1,000 mcg 926 (Given - Pr ovider: Julee Owens RN) 1010 (Given - Provider: Cheyenne Downs RN) 0839 (Give n - Provider: Cheyenne Downs RN) 1,000 mcg (1 mg), Oral, DAILY, First dos e on Sun10/28/19 at 0900, Until Discontinued, Routine heparin (Porcine) subcutaneous injection 5,000 Units 0 620 (Given - Provider: Laura Harvey RN)1352 (Given - Provider: Julee Owens RN)2112 (Given - Provider: Diana Reddy RN) 0601 (Given - Provider: Diana Reddy, MADISYN)1329 (Given - Provider: Cheyenne Downs RN)2211 (Given - Provider: Diana Reddy RN) 0619 (Given - Provider: Diana Reddy RN) 5,000 Units, Subcutaneous, EVERY 8 HOURS SCHEDULED, First dose on Sun10/27/19 at 2200, Until Discontinued, Routine polyethylene glycol (Miralax) packet 17 g 09 (Not Gi ray - Provider: Julee Owens RN - Reason: Patient/family refused)2100 (Not Given - Provider: Diana Reddy RN - Reason: Patient/family refused) 0900 (Not Given - Provider: Cheyenne Downs RN - Reason: Patient/family refused)2100 (Not Given - Provider: Diana Reddy RN - Reason: Patient/family refused) 0900 (Not Given - Provider: Cheyenne Downs RN - Reason: Patient/family refused) 17 g, Oral, 2 TIMES DAILY, First dose on Stephanie 10/30/19 at 0900, Until Discontinued, Routine senna (Senokot) tablet 17.2 mg 1700 (Not Given - Provi nik: Julee Owens RN - Reason: Order parameters not met) 1806 (Given - Provider: Cheyenne Downs RN) 17.2 mg, Oral, EVERY EVENING, First dose on Sun10/28/19 at 1700, Until Discontinued, Routine sodium chloride 0.9 % (flush) flush 5 mL 0929 (Given - Provider: Julee Owens RN)2104 (Given - Provider: Diana Reddy RN) 1011 (Given - Provider: Cheyenne Downs RN)2044 (Given - Provider: Diana Reddy RN) 0843 (Given - Provider: Cheyenne Downs RN) 5 mL, Intravenous, 2 TIMES DAILY, First dose on 10/27/19 at 2100, Until Discontinued, Recovery (Recovery-Hospital Unit), Routine vancomycin 1 g in 0.9 % sodium chloride 200 mL (CANCELED) 1329 (New Bag - Provider: Cheyenne Downs RN)1429 (Stopped - Provider: Cheyenne Downs RN) 0207 (New Bag - Provider: Diana Reddy RN)0307 (Stopped - Provider: Diana Reddy RN) 1 g, Intravenous, EVERY 12 HOURS, First dose on Sun11/02/19 at 1300, Until Discontinued, Administer over 60 Minutes, Maximum infusion rate is 1 gram/hour. If flushing of the face, neck, upper body, arms , and/or back occurs decrease infusion r ate by 50% to reduce the severity of symptoms. This medication may have an associated drug lab level. Please see MAR for scheduled level. Warning Vesicant/Irri tant Medication , Indication for (Active or Suspected): O ther (See comment) vancomycin 1.5 g in sodium chloride 0.9% 250 mL (CANCE LED) 0927 (New Bag - Provider: Julee Owens, RN)1057 (Stopped - Provider: Julee Owens, RN)2104 (New Bag - Provider: Diana Reddy RN)2234 (Stopped - Provider: Diana Reddy RN) 0900 (Not Given - Provider: Cheyenne Downs RN - Reason: Medication Discontinued) 1.5 g, Intravenous, EVERY 12 HOURS, Firs t dose on Sun10/31/19 at 2100, Until Discontinued, Administer over 90 Minutes, Maximum infusion rate is 1 gram/hour. If flushing of the face, neck, upper body, ar ms, and/or back occurs decrease infusion rate by 50% to reduce the severity of symptoms. This medication may have an associated drug lab level. Please see MAR for scheduled level. Warning Vesicant/Ir ritant Medication , Indication for (A ctive or Suspected): Other (See comment) vancomycin 750 mg in 0.9% sodium chloride 150 mL 750 mg, Intravenous, EVERY 12 HOURS, Fir st dose (after last modification) on Sun11/03/19 at 1400, Until Discontinued, Administer over 45 Minutes, Maximum infusion rate is 1 gram/hour. If flushing of the face, neck, upper body, arms, and/or ba ck occurs decrease infusion rate by 50% to reduce the severity of symptoms. This medication may have an associated drug lab level. Please see MAR for scheduled le josi. Warning Vesicant/Irritant Medica tion , Indication for (Active or Suspected): Other (See comment) Vancomycin Level - MAR Order Reminder NOT APPLICABLE, ONCE, Sun11/04/19 at 133 0, 1 dose, This alert will be scheduled by a pharmacist after order placement. This order is a reminder to nursing staff to release and draw the PRN drug level at the specified time. It may be necessary to contact phlebotomy 60 minutes prior to the scheduled due time to assure a timely blood draw. PRN Medication Order 11/01/2019 11/02/2019 11/03/2019 acetaminophen (Tylenol) tablet 650 mg 650 mg, Oral, EVERY 6 HOURS PRN, Startin g 10/28/19 at 1647, Until 11/03/19 at 1548, Pain, Maximum dose of acetaminophen is 4000 mg from all sources in 24 hours., Routine bisacodyL (Dulcolax) suppository 10 mg 10 mg, Rectal, DAILY PRN, Starting Stephanie at 0831, Until 11/03/19 at 1548, Constipation, Routine ipratropium-albuteroL (DUONEB) 0.5 mg-3 mg(2.5 mg base)/3 mL nebulizer solution 3 mL 3 mL, Nebulization, EVERY 4 HOURS PRN, S tarting 10/27/19 at 2031, Until 11/03/19 at 1548, Wheezing, Routine lidocaine (XYLOCAINE) 10 mg/mL (1 %) injection 3 mg 3 mg (0.3 mL), Subcutaneous, ONCE PRN, 1 dose, Starting 10/27/19 at 2031, Until 11/03/19 at 1548, for discomfort with PIV insertion, Recovery (Recovery-Hospital Unit), Routine loperamide (Imodium A-D) capsule 2 mg 2 mg, Oral, 4 TIMES DAILY PRN, Starting 10/27/19 at 2338, Until 11/03/19 at 1548, Diarrhea, Do not exceed 16 mg/day., Routine sodium chloride 0.9 % (flush) flush 5-20 mL 5-20 mL, Intravenous, EVERY 1 MIN PRN, S tarting 10/27/19 at 2031, Until 11/03/19 at 1548, flush, Flush pertains to all indwelling lines. Flush per protocol found in the job aid using the link prov ided on this medication record., Recovery (Recovery-Hospital Uni t), Routine documented in this encounter Care Teams Roll Shop Supervisor Relationship Specialty Start Date End Date Farzaneh Winkler, EMPLOYMENT MANAGER PCP - General General Internal Medicine 06/05/[address] [place] [address] documented as of this encounter
--- OUTSIDE RECORDS SUMMARY | 2022-01-19 07:37 | XMS_ITS | Encounter Summary ---
:1950 Author Organization [facility] [place] [address] Care Team Providers Name Role Phone Peterson Farzaneh Huff APRN Primary Care Provider Encounter Details Date Type Department Care Team Description 10/21/2019 Orders Only Thoracic Surgery at [place], Mariana L, Prim pilar lung adenocarcinoma, right[place] [facility] [place] [address] Social History Tobacco Use Types Packs/Day [...] Loan Burton APRN [facility] HEMATOLOGY/[place] [address] 01/19/2022 Infusion Hematology and Oncology Canc eled (F-ARIA CANCEL) 01/25/2022 Hospital Gastroenterology Jose Clark MD [facility] [place] [address] 01/25/2022 Surgery Gastroenterology Jose ClarkD, LOLA Yates MD ENDOSCOPY [facility] [place] [address] 01/26/2022 Office Visit Hematology and Oncology Fabian Cameron MD [facility] HEMATOLOGY/[place] [address] Loan Burton, CHIEF MERCHANDISING OFFICER [facility] HEMATOLOGY/[place] [address] 01/26/2022 Infusion Hematology and Oncology 02/02/2022 Office Visit Hematology and Oncology Fabian Cameron MD [facility] HEMATOLOGY/[place] [address] 02/02/2022 Infusion Hematology and Oncology 02/22/2022 Telephone Hematology and Oncology Siena Lloyd, RD [facility] [address]IVE [place]OLOGY [place] [address] Scheduled Procedures Name Priority Associated Diagnoses Date/Time [...] adenocarcinoma, right Pleural effusion Unspecified pleural effusion Primary lung adenocarcinoma, right Pleural effusion Unspecified pleural effusion documented in this encounter Care Teams Forest Practices Field Coordinator Relationship Specialty Start Date End Date Farzaneh Winkler, CHIEF MERCHANDISING OFFICER PCP - General General Internal Medicine 06/05/[address] [place] [address] documented as of this encounter
--- OUTSIDE RECORDS SUMMARY | 2022-01-19 07:37 | XMS_ITS | Encounter Summary ---
:1950 Author Organization [facility] [place] [address] Care Team Providers Name Role Phone Farzaneh Winkler APRN Primary Care Provider Reason for Referral Diagnostic Test (Routine) - Closed Specialty Diagnoses / Procedures Referred By Contact Refer red To Contact Radiology Diagnoses Primary lung adenocarcinoma, right Phuong Faulkner APRN [facility] Rad Nuclear Med Procedures NM PET CT Skull Base to Mid-thigh [address] [place] [address] [place] [address] [place], [place] [address] Referral ID Status Reason Start Date Expiration Date Visits V isits Requested Authorized [id number] Closed Specialty 06/26/2019 12/24/2020 1 1 Service Requested Reason for Visit Diagnostic Test (Routine) - Closed Specialty Diagnoses / Procedures Referred By Contact Refer red To Contact Radiology Diagnoses Primary lung adenocarcinoma, right Phuong Faulkner APRN [facility] Rad Nuclear Med Procedures NM PET CT Skull Base to Mid-thigh [address] [place] [address] [place] [address] [place], [place] [address] Referral ID Status Reason Start Date Expiration Date Visits V isits Requested Authorized [id number] Closed Specialty 06/26/2019 12/24/2020 1 1 Service Requested Encounter Details Date Type Department Care Team Description 07/22/2019 Hospital Encounter Nuclear Medicine at [place], Phuong Marcum , Primary lung Bria Burks CIVIL SERVICE CLERK adenocarcinoma, [address] right [place] [address] [phone] Social History Tobacco Use Types Packs/Day Years [...] [facility] HEMATOLOGY/[place] [address] 01/19/2022 Infusion Hematology and Oncology Canc eled (F-ARIA CANCEL) 01/25/2022 Hospital Gastroenterology Jose Clark MD [facility] [place]STR[place] [address] 01/25/2022 Surgery Gastroenterology Jose Clark EGDLOLA MD ENDOSCOPY [facility] [place] [address] 01/26/2022 Office Visit Hematology and Oncology Fabian Cameron MD [facility] HEMATOLOGY/[place] [address] Loan Burton APRN [facility] HEMATOLOGY/[place] [address] 01/26/2022 Infusion Hematology and Oncology 02/02/2022 Office Visit Hematology and Oncology Fabian Cameron MD [facility] HEMATOLOGY/[place] [address] 02/02/2022 Infusion Hematology and Oncology 02/22/2022 Telephone Hematology and Oncology Siena Lloyd RD [facility] DRIVE HEMATOLOGY [place] [address] Scheduled Procedures Name Priority Associated Diagnoses Date/Time EGD, UPPER GI ENDOSCOPY EGD with stent vs 2021 12:00 PM EDT cryotherapy. documented as of this encounter Procedures Procedure Name Priority Date/Time Associated Diagnosis Comme nts NM PET CT SKULL Routine 07/22/2019 11:54 AM Primary lung Resul ts for this BASE TO MID-THIGH EST adenocarcinoma, procedu re are in ([facility]) right the results section. documented in this encounter Results NM PET CT Skull Base to Mid-thigh (07/22/2019 11:54 AM EST) Anatomical Region Laterality Modality Positron Emission To mography (PET) Specimen (Source) Anatomical Location Collection Method / Collectio n Time Received Time / Laterality Volume Impressions 07/22/2019 3:48 PM EST 1. ??Multiple mildly FDG avid pleural-based RIGHT lung nodules, concerning for recurrent disease. 2. ??Consolidated/fibrotic lung adjacent to the RIGHT hilum is favored to represent postradiation change. 3. ??Persistent partially loculated mode rate RIGHT pleural effusion. Preliminary report signed by: Mo contreras at 07/22/2019 3:38 PM I have personally reviewed the image(s) and the resident's interpretation and agree with the findings, Ari Rose at 07/22/2019 3:48 PM Thank you for letting us participate in the care of this patient. For questions regarding this report, please contact e number below. ? Narrative 07/22/2019 3:48 PM EST EXAMINATION: NM PET CT SKULL BASE TO MID-THIGH ? CLINICAL HISTORY: Non-small cell lung ca ncer, non-metastatic, assess treatment response CT scan 06/24/19 showed increase in pleura l effusion on right and new pleural based masses TECHNIQUE: Following IV injection of 18- mbdond-0-gyyseqegudcl (FDG) a standard uptake of approximately 60 minutes, a no ncontrast CT scan followed by a PET scan were acquired from the base of the skull to mid thighs. The noncontrast CT was used for anatomic localization and photo n attenuation correction of the PET scan. Blood glucose level: 97 (mg/dL) FDG dose: 18.2 mCi COMPARISON: CT chest 06/23/2019; CT chest and pelvis 1 ; CT chest 05/04/2017 FINDINGS: HEAD/NECK: Normal activity in all soft tissue regio ns of the neck and visualized lower head. No significant lymphadenopathy. Nonobstructing mucus retention cyst with in the RIGHT maxillary sinus. CHEST: Multiple mildly FDG avid RIGHT pleural-b ased nodules within the RIGHT lung which are stable since CT 06/23/2019, however ne w since CT 09/02/2018 (axial images 92, 108, and 116). FDG avid atelectasis/consolidation withi n the RIGHT lung, similar to CT from 06/23/[address] 9, which has avidity similar to that of the mediastinal blood pool. This corresp onds with the region of prior radiation therapy. No metabolically active mediastinal lymp h nodes above the background mediastinum. Right-sided Mediport with tip terminatin g in the right brachiocephalic vein. Unchanged complex moderate RIGHT pleural effusion with a loculated component since most recent CT. Stable volume loss within the RIGHT hemithorax Coronary artery and aortic calcification s. ABDOMEN/PELVIS: Normal activity in all soft tissue regio ns. Small CT identified hypoattenuating focu s within the inferior posterior RIGHT hepatic lobe is stable since at least and likely a benign hepatic cyst. Status post partial colectomy. Pos tsurgical FDG avid soft tissue scarring in the region of the umbilicus. Small hi atal hernia. Stable non-FDG avid RIGHT adrenal masses since CT 05/04/2017, the largest of which measures 42 x 34 mm (axial image 1 48) and 8 Hounsfield units which is most consistent with benign adenoma. The smal ler RIGHT adrenal mass measures 23 x 18 mm (axial image 152) and 16 Hounsfield u nits, which given stability is also consistent with a benign adenoma. Abdominal vascular calcifications. Diffu se hypoattenuating liver parenchyma, measuring 32 Hounsfield units, consisten t with fatty infiltration. There is a 5 mm exophytic lesion of the RIGHT kidney, stable since at least 04/10/2018, and favored a benign hyperdense cyst. SKELETON/EXTREMITIES: Decreased activity in the thoracic spine is secondary to prior radiation. Small focus of increased FDG uptake within the T9-T10 disc, consistent with degenerative change. Procedure Note Ari Rose MD - 07/22/2019 EXAMINATION: NM PET CT SKULL BASE TO MID -THIGH CLINICAL HISTORY: Non-small cell lung ca ncer, non-metastatic, assess treatment response CT scan 06/24/19 showed increase in pleura l effusion on right and new pleural based masses TECHNIQUE: Following IV injection of 18- yyyivh-6-xtusddfjabio (FDG) a standard uptake of approximately 60 minutes, a no ncontrast CT scan followed by a PET scan were acquired from the base of the skull to mid thighs. The noncontrast CT was used for anatomic localization and photo n attenuation correction of the PET scan. Blood glucose level: 97 (mg/dL) FDG dose: 18.2 mCi COMPARISON: CT chest 06/23/2019; CT chest and pelvis 1 ; CT chest 05/04/2017 FINDINGS: HEAD/NECK: Normal activity in all soft tissue regio ns of the neck and visualized lower head. No significant lymphadenopathy. Nonobstructing mucus retention cyst with in the RIGHT maxillary sinus. CHEST: Multiple mildly FDG avid RIGHT pleural-b ased nodules within the RIGHT lung which are stable since CT 06/23/2019, however ne w since CT 09/02/2018 (axial images 92, 108, and 116). FDG avid atelectasis/consolidation withi n the RIGHT lung, similar to CT from 06/23/[address] 9, which has avidity similar to that of the mediastinal blood pool. This corresp onds with the region of prior radiation therapy. No metabolically active mediastinal lymp h nodes above the background mediastinum. Right-sided Mediport with tip terminatin g in the right brachiocephalic vein. Unchanged complex moderate RIGHT pleural effusion with a loculated component since most recent CT. Stable volume loss within the RIGHT hemithorax Coronary artery and aortic calcification s. ABDOMEN/PELVIS: Normal activity in all soft tissue regio ns. Small CT identified hypoattenuating focu s within the inferior posterior RIGHT hepatic lobe is stable since at least and likely a benign hepatic cyst. Status post partial colectomy. Pos tsurgical FDG avid soft tissue scarring in the region of the umbilicus. Small hi atal hernia. Stable non-FDG avid RIGHT adrenal masses since CT 05/04/2017, the largest of which measures 42 x 34 mm (axial image 1 48) and 8 Hounsfield units which is most consistent with benign adenoma. The smal ler RIGHT adrenal mass measures 23 x 18 mm (axial image 152) and 16 Hounsfield u nits, which given stability is also consistent with a benign adenoma. Abdominal vascular calcifications. Diffu se hypoattenuating liver parenchyma, measuring 32 Hounsfield units, consisten t with fatty infiltration. There is a 5 mm exophytic lesion of the RIGHT kidney, stable since at least 04/10/2018, and favored a benign hyperdense cyst. SKELETON/EXTREMITIES: Decreased activity in the thoracic spine is secondary to prior radiation. Small focus of increased FDG uptake within the T9-T10 disc, consistent with degenerative change. IMPRESSION 1. Multiple mildly FDG avid pleural-base d RIGHT lung nodules, concerning for recurrent disease. 2. Consolidated/fibrotic lung adjacent t o the RIGHT hilum is favored to represent postradiation change. 3. Persistent partially loculated modera te RIGHT pleural effusion. Preliminary report signed by: Mo contreras at 07/22/2019 3:38 PM I have personally reviewed the image(s) and the resident's interpretation and agree with the findings, Ari Rose at 07/22/2019 3:48 PM Thank you for letting us participate in the care of this patient. For questions regarding this report, please contact e number below. Phuong Faulkner APRN IMG PET ORDERABLES documented in this encounter Visit Diagnoses Diagnosis Primary lung adenocarcinoma, right documented in this encounter Administered Medications Inactive Administered Medications - up to 3 most recent administrations Medication Order MAR Action Action Date Dose Rate Site fludeoxyglucose (F-18) FDG Given 07/22/2019 10:40 AM 18.2 mCi Right Arm injection 0-20 mCi EST 0-20 mCi, Intravenous, ONCE PRN, 1 dose, Starting on Sun07/22/19 at 1043, Until Sun07/22/19 at 1040, Per Protocol, Radiology Contrast, Routine documented in this encounter Care Teams Reporting Lead Relationship Specialty Start Date End Date Farzaneh Winkler, CIVIL SERVICE CLERK PCP - General General Internal Medicine 06/05/[address] [place] [address] documented as of this encounter
--- OUTSIDE RECORDS SUMMARY | 2022-01-19 07:37 | XMS_ITS | Encounter Summary ---
:1950 Author Organization [facility] [place] [place] [address] Care Team Providers Name Role Phone PetersonRamónrubio Huff APRN Primary Care Provider Encounter Details Date Type Department Care Team Description 10/27/2019 Ancillary Procedure Radiology Library at [place], Otf Link MD [facility] [place] [address] [place] [address] [phone] (Wo rk) Social History Tobacco Use Types [...] [facility] HEMATOLOGY/[place] [address] 01/19/2022 Infusion Hematology and Oncology Canc eleseema (F-ARIA CANCEL) 01/25/2022 Hospital Gastroenterology Jose Clark MD [facility] [place] [address] 01/25/2022 Surgery Gastroenterology Jose Clark EGD, LOLA Yates MD ENDOSCOPY [facility] [place] [address] 01/26/2022 Office Visit Hematology and Oncology Fabian Cameron MD [facility] DR HEMATOLOGY/[place] [address] Loan Burton APRN [facility] HEMATOLOGY/[place] [address] 01/26/2022 Infusion Hematology and Oncology 02/02/2022 Office Visit Hematology and Oncology Fabian Cameron MD [facility] DR HEMATOLOGY/[place] [address] 02/02/2022 Infusion Hematology and Oncology 02/22/2022 Telephone Hematology and Oncology Siena Lloyd, MUKUND [facility] [address] [place] [address] Scheduled Procedures Name Priority Associated Diagnoses Date/Time EGD, UPPER GI ENDOSCOPY EGD with stent vs 2021 12:00 PM EDT cryotherapy. documented as of this encounter Procedures Procedure Name Priority Date/Time Associated Diagnosis Comme nts FILM LIBRARY Routine 10/27/2019 1:53 PM Results f or this STORAGE ONLY DX EDT procedure ar e in CHEST the results section. documented in this encounter Results Film Library- Storage Only DX Chest (10/27/2019 1:53 PM EDT) Specimen (Source) Anatomical Location Collection Method / Collectio n Time Received Time / Laterality Volume Narrative [facility] RAD - 10/27/2019 1:53 PM EDT This exam is auto-finalizing. It's purpo se is for storage only. Otf Jose MD IMG FILM LIBRARY ORDERABLES Performing Organization Address City/State/ZIP Code Phon e Number [place], [place] documented in this encounter Visit Diagnoses Not on filedocumented in this encounter Care Teams Roller Mill Tender Relationship Specialty Start Date End Date Farzaneh Winkler, PLUG STITCHER PCP - General General Internal Medicine 06/05/[address] [place] [address] documented as of this encounter
--- OUTSIDE RECORDS SUMMARY | 2022-01-19 07:37 | XMS_ITS | Encounter Summary ---
:1950 Author Organization [facility] [place] [address] Care Team Providers Name Role Phone PetersonRamónrubio [...] Expiration Date Visits Requ ested Visits Authorized [id number] 1 1 Encounter Details Date Type Department Care Team Description 09/05/2019 Anesthesia Event Main Operating Room Evaristo Luna MD [facility] [place] [address] [facility] (Former[facility]) Kayla Galvez MD [facility] [address] [facility] [place] [address] Anesthesia Record Procedure Summary Procedure Name Responsible Anesthesia Start Anesthesia Stop Time Anesthesiologist Time THORACOSCOPY; WITH Evarsito Alatorre MD 09/05/19 1030 09/05/19 1209 BIOPSY(IES) OF PLEURA (WRVU 4.58) (Right Chest) Events Date Time Event Comment 09/05/2019 1007 1030 Start 1034 AN Verify 1034 An Start Data 1043 An Induction 1052 An Intubation 1055 FO Bronchoscopy 1059 Anesthesia Ready 1110 An one lung vent 1140 An Dual Lung Vent 1157 Extubation/LMA Out 1200 an stop data 1209 Recovery or ICU Handoff Patient care was transferred to the destination unit staff after review of the patient's medica l history, current anesthetic/surgi gaurang status and plan, according to the Provider Handoff Checklist. 1209 Stop Name Total fentaNYL 25 mcg IV Lidocaine 80 mg Propofol 200 mg Rocuronium 70 mg Neostigmine 6 mg Glycopyrrolate 0.8 mg ceFAZolin 3 g Dexmedetomidine 32 mcg Lactated Ringers 500 mL Agents Name O2 Air N2O Sevoflurane (et) Blood No blood administrations on file. Lines, Drains, and Airways Type Details Placement Removal Incision 09/05/19; 1118; abdomen; 09/05/19 1118 by laparoscopic punctures Juliet Burrows, (specify) (Multiple trocar RN sites.) Chest Tube 09/05/19; 1135; Right; 09/05/19 1135 by lateral; 5th intercostal Mau Dia, RN space; Pleurx 15.5 german Implanted Port - 07/13/17; 1436; 07/13/17 1436 by 01/17/22 1400 by Single Lumen infraclavicular fossa, Dina Miranda, Odessa Varela, (non-apheresis) right; power injectable RN port; Luigi Burrows DO L; 01/17/22; 1400 PIV 09/05/19; 0846; metacarpal 09/05/19 0846 by 08/17 1626 by vein (top of hand), right; Tabby Fry RN Isabel Diaz, RN [id number] catheter system; 20 gauge, 1 in length; Fracisco MARS; distraction, tolerated well, appears comfortable, intradermal injection; 0; 09/05/19; 1626 ETT Mask Ventilation: Easy 09/05/19 1052 by 09/05/19 1157 by (1); ETT Type: Cuffed, Evaristo Alatorre Ostlesley , Kenia Oral; Double Lumen: 39 Fr; MD Fariba Mac Blade: 4; Notes: Asleep, Cricoid Pressure, Stylette; Attempts: 1; Laryngoscopy Grade: 1; ETT Placement Verified By: Auscultation, Visual (FOB); Inserted by: LO documented in this encounter Social History Tobacco Use Types Packs/Day Years [...] on file documented as of this encounter OR Notes Anesthesia Postprocedure Evaluation - Evaristo Alatorre - 09/05/2019 1:59 PM EDT Department of Anesthesiology Post-procedure Note Patient: Alin Meek Procedure Summary Date: 09/05/19 Room / Location: [facility] OR [address] [place] [address] MAIN OR Anesthesia Start: 1030 Anesthesia Stop: 1209 Procedures: THORACOSCOPY; WITH BIOPSY(IES) OF PLEURA (WRVU 4.58) (Right Chest) BRONCHOSCOPY, DIAGNOSTIC (WRVU 2.78) (N/A ) INSERTION INDWELLING PLEURAL CATHETER W\CUFF (WRVU 4.17) (Right Chest) NERVE BLOCK, INTERCOSTAL NERVE, MULTIPLE (WRVU 1.68) (Right ) Diagnosis: Primary lung adenocarcinoma, right (Lung cancer with right pleural effusion) Surgeon: Stan Bernal MD Responsible Provider: Evaristo Alatorre MD Anesthesia Type: general ASA Status: 3 All Anesthesia Providers: Anesthesiologist: Evaristo Alatorre MD Network Technician: Kenia Chandra MD Vitals Value Taken Time BP 115/59 09/05/2019 1:45 PM Temp 36.4 ??C (97.5 ??F) 09/05/2019 12:03 PM Pulse 67 09/05/2019 1:56 PM Resp 12 09/05/2019 12:45 PM SpO2 97 % 09/05/2019 1:56 PM Pain Level Vitals shown include unvalidated device data. Patient Location: PACU/[facility] Level of Consciousness: Conscious but Sleepy Pain Management: Satisfactory Analgesia PONV: None Cardiovascular Status: At Baseline Respiratory Status: At Baseline Postoperative Fluid Status: Intravascular EUvolemia Possible Anesthetic Complications: NONE apparent at time of evaluation Final Primary Anesthesia Type: General (The anesthetic type performed was the same as planned.) Comments: Anesthesia Preprocedure Evaluation - Evaristo Alatorre - 09/04/2019 3:14 PM EDT Pre-Anesthesia Evaluation for: Alin Meek a 69 y.o. male. Procedure(s): THORACOSCOPY; WITH BIOPSY(IES) OF PLEURA (WRVU 4.58) BRONCHOSCOPY, DIAGNOSTIC (WRVU 2.78) INSERTION INDWELLING PLEURAL CATHETER W\CUFF (WRVU 4.17) @THORACOSCOPY, SURG; W PLEURODESIS (WRVU 10.83) Patient Active Problem List Diagnosis ??? Lung cancer ??? Pain in [...] KNEE ARTHROPLASTY Right ??? UMBILICAL HERNIA REPAIR Social History Tobacco Use ??? Smoking status: Former Smoker Packs/day: 2.00 Types: Cigarettes Start date: 1969 Last attempt to quit: 2016 Years since quittin.2 ??? Smokeless tobacco: Former User Types: Chew Quit date: 1974 ??? Tobacco comment: 2015 quit Substance Use Topics ??? Alcohol use: No Comment: usd to drink heavily ( 12 pck/day) quit 2016 Social History Substance and Sexual Activity Drug Use No Allergies Allergen Reactions ??? Lisinopril Angioedema Lips got swollen Medications: MAR and/or home medications have been reviewed. Physical Exam: There were no vitals filed for this visit. There is no height or weight on file to calculate BMI. Airway Assessment: Mallampati: III TM distance: >3 FB Neck ROM: full Cardiovascular Assessment: Rhythm: regular Rate: normal (-) murmur Pulmonary Assessment: (+) decreased breath sounds Dental Assessment: (+) upper dentures and lower dentures Misc Assessment: IV access: Peripheral line Other exam findings: No peripheral edema Anesthesia Plan: ASA 3 general, with a(n) intravenous induction 69 y.o. male with hx of right lung adenocarcinoma s/p chemo/radiation now presenting with severe SOBand evidence of right pleural nodules and loculated effusion scheduled for thoracoscopy and VATS w/ Dr. Jose. Last February 2019, big open abdominal surgery at [facility]. Medical History: HTN, HLD, COPD, obesity Surgery History: open abdomen surgeries x2, knee surgery, spine pain procedures, back surgery, lung biopsy, colonoscopies Anesthetic History: no airway records PFT: mixed obstructive/restrictive pattern, reduced FEV1 and FVC Allergies reviewed Labs reviewed Exercise tolerance: Limited by SOB and by back pain EKG: NSR Echocardiogram: none on file NPO Status: Sprite this am, otherwise nothing to eat since MDN No recent fever, no recent changes in cough Anesthetic Plan: GA w/ ETT, LISBETH Standard ASA monitoring PIV access +/- arterial line Lucia Jhaveri MD 09/04/2019 Region - Intrathoracic Non-Cardiac Informed Consent: Anesthetic plan and risks discussed with patient. Use of blood products discussed with patient who consented to blood products. Plan discussed with attending and resident. PAT Clinic Note documented in this encounter Plan of Treatment Upcoming Encounters Date Type Specialty Care Team Description 01/19/2022 Office Visit Hematology and Oncology Loan Burton, FITNESS SUPERVISOR [facility] HEMATOLOGY/[place] [address] 01/19/2022 Infusion Hematology and Oncology Canc eled (F-ARIA CANCEL) 01/25/2022 Hospital Gastroenterology Jose Clark MD [facility] [place] [address] 01/25/2022 Surgery Gastroenterology Jose Clark EGD, LOLA Yates MD ENDOSCOPY [facility] [place] [address] 01/26/2022 Office Visit Hematology and Oncology Fabian Cameron MD [facility] DR HEMATOLOGY/[place] [address] Loan Burton APRN [facility] HEMATOLOGY/[place] [address] 01/26/2022 Infusion Hematology and Oncology 02/02/2022 Office Visit Hematology and Oncology Fabian Cameron MD [facility] HEMATOLOGY/[place] [address] 02/02/2022 Infusion Hematology and Oncology 02/22/2022 Telephone Hematology and Oncology Siena Lloyd RD [facility] DRIVE [place] [address] Scheduled Procedures Name Priority Associated Diagnoses Date/Time EGD, UPPER GI ENDOSCOPY EGD with stent vs 2021 12:00 PM EDT cryotherapy. documented as of this encounter Visit Diagnoses Not on filedocumented in this encounter Administered Medications Inactive Administered Medications - up to 3 most recent administrations Medication Order MAR Action Action Date Dose Rate Site ceFAZolin (ANCEF) 1g in dextrose 5% Given 09/05/2019 10:55 AM ED T 3 g 50mL PRN, Starting on Sun09/05/19 at 1055, Until Sun09/05/19 at 1210, Administer over 30 Minutes, Anesthesia Intra-op dexmedetomidine (PRECEDEX) injection Given 09/05/2019 11:50 AM EDT 12 mcg PRN, Starting on Sun09/05/19 at 1030, Until Sun09/05/19 at 1211, Anesthesia Intra-op, Routine Given 09/05/2019 11:09 AM EDT 8 mcg Given 09/05/2019 10:37 AM EDT 8 mcg fentaNYL 50 mcg/mL multi-dose injection Given 09/05/2019 11:10 AM EDT 25 mcg PRN, Starting on Sun09/05/19 at 1110, Until Sun09/05/19 at 1210, Anesthesia Intra-op, Routine glycopyrrolate (ROBINUL) multi-dose Given 09/05/2019 11:50 AM ED T 0.8 mg injection PRN, Starting on Sun09/05/19 at 1150, Until Sun09/05/19 at 1210, Anesthesia Intra-op, Routine lactated ringers infusion New Bag 09/05/2019 10:34 AM EDT CONTINUOUS PRN, Starting on Sun09/05/19 at 1034, Until Sun09/05/19 at 1210, Anesthesia Intra-op lidocaine (PF) (XYLOCAINE) 100 mg/5 mL (2 %) Given 10:43 AM EDT 80 mg injection PRN, Starting on Sun09/05/19 at 1043, Until Sun09/05/19 at 1210, Anesthesia Intra-op, Routine neostigmine (BLOXIVERZ) injection Given 09/05/2019 11:50 AM EDT 6 mg PRN, Starting on Sun09/05/19 at 1150, Until Sun09/05/19 at 1210, Anesthesia Intra-op, Routine propofol (DIPRIVAN) 10 mg/mL bolus injection Given 10:43 AM EDT 200 mg (Anesthesia) PRN, Starting on Sun09/05/19 at 1043, Until Sun09/05/19 at 1210, Anesthesia Intra-op rocuronium (ZEMURON) multi-dose injectio n Given 09/05/2019 10:47 AM EDT 70 mg PRN, Starting on Sun09/05/19 at 1047, Until Sun09/05/19 at 1210, Anesthesia Intra-op, Routine documented in this encounter Care Teams Physician Interventional Cardiologist Relationship Specialty Start Date End Date Farzaneh Winkler, NOLAN PCP - General General Internal Medicine 06/05/[address] [place] [address] documented as of this encounter
--- OUTSIDE RECORDS SUMMARY | 2022-01-19 07:37 | XMS_ITS | Encounter Summary ---
:1950 Author Organization [place] [address] Care Team Providers Name Role Phone Peterson Farzaneh Huff APRN Primary Care Provider Reason for Visit Reason Onset Date Comments Other 09/08/2019 PleurX catheter kits Encounter Details Date Type Department Care Team Description 09/08/2019 Telephone Thoracic Surgery at [facility] (PleurX catheter [facility] [place] kits[place] [phone] Social History Tobacco Use Types Packs/Day [...] Telephone Encounter - Mariana Ervin RN - 09/08/2019 9:30 AM EDT TC from Mrs. Meek Hx: PleurX catheter placed 09/05/19 Mrs. Meek was notified by the [facility] that they would not be supplying the pleurX catheter kits and isin need of supplies. Faxed orders to [facility] for MONI new patient Thoracic Surgery Nursing Post-operative Follow up: Hx: PleurX catheter placement for recurrent pleural effusion POD#: 3 General statement: Pierre leaked all the way home but is doing well. Pain: denies pain GI: appetite: good Hydration: good Voiding: without any difficulty BM: without any difficulty Respiratory: using IS as directed SOB: denies Coughing with or without sputum: denies Activity: up and about Integumentary: Incisions without any redness, swelling, drainage, fevers, chills, sweats, site hot to touch PleurX catheter: Drainage output: Sat 09/05 was 200 mls Sun 09/06 am - 200 mls Sun 09/06 pm - 50 mls Plan: Check in with drainage output documented in this encounter Plan of Treatment Upcoming Encounters Date Type Specialty Care Team Description 01/19/2022 Office Visit Hematology and Oncology Loan Burton, NOLAN [facility] HEMATOLOGY/[place] [address] 01/19/2022 Infusion Hematology and Oncology Canc eled (F-ARIA CANCEL) 01/25/2022 Hospital Gastroenterology Jose Clark MD [facility] [place]STROENTER[place] [address] 01/25/2022 Surgery Gastroenterology Jose Clark UPPE R GI R, MD ENDOSCOPY [facility] GASTROENTEROLOG [place] [address] 01/26/2022 Office Visit Hematology and Oncology Fabian Cameron MD [facility] HEMATOLOGY/[place] [address] Loan Burton, NOLAN [facility] HEMATOLOGY/[place] [address] 01/26/2022 Infusion Hematology and Oncology 02/02/2022 Office Visit Hematology and Oncology Fabian Cameron MD [facility] DR HEMATOLOGY/[place] [address] 02/02/2022 Infusion Hematology and Oncology 02/22/2022 Telephone Hematology and Oncology Siena Lloyd RD [facility] DRIVE HEMATOLOGY [place] [address] Scheduled Procedures Name Priority Associated Diagnoses Date/Time EGD, UPPER GI ENDOSCOPY EGD with stent vs 2021 12:00 PM EDT cryotherapy. documented as of this encounter Visit Diagnoses Not on filedocumented in this encounter Care Teams Bristle Machine Operator Relationship Specialty Start Date End Date Farzaneh Winkler, SENIOR STAFF ACCOUNTANT PCP - General General Internal Medicine 06/05/[address] [place] [id number] documented as of this encounter
--- OUTSIDE RECORDS SUMMARY | 2022-01-19 07:37 | XMS_ITS | Encounter Summary ---
:1950 Author Organization [facility] [place] [address] Care Team Providers Name Role Phone Peterson Farzaneh Daria FRANCISCO Primary Care Provider Reason for Visit Reason Onset Date Comments Other 10/22/2019 Encounter Details Date Type Department Care Team Description 10/22/2019 Telephone Thoracic Surgery at [facility] [place] [place] [phone] Social History Tobacco Use Types Packs/Day [...] Telephone Encounter - Adrianne Shah RN - 10/22/2019 10:16 AM EDT Dave Stephanie's call: 525 mL's fluid from Pleurex Catheter today. Ms. Meek would like to know how often she should emptythe drain. She has four kits left, expecting a delivery in the next 4-5 days of more kits. I don't have enough to emtpy more than once per day. I will run this by Dr. Jose and get back to Stephanie with an answer or have Judith call tomorrow if necessary. Stephanie agreed with this. Telephone Encounter - Taya Marsh - 10/22/2019 8:10 AM EDT Caller and relationship to patient (if other than patient): Stephanie- Best time to reach caller: any Message or Reason for Call: Patient's is calling asking to speak to Judith to follow up from yesterday Appt Needed and Reason: Provider: documented in this encounter Plan of Treatment Upcoming Encounters Date Type Specialty Care Team Description 01/19/2022 Office Visit Hematology and Oncology Loan Burton, NOLAN [facility] HEMATOLOGY/[place] [address] 01/19/2022 Infusion Hematology and Oncology Canc eled (F-ARIA CANCEL) 01/25/2022 Hospital Gastroenterology Jose Clark MD [facility] [place] [address] 01/25/2022 Surgery Gastroenterology Jose Clark UPPE R GI R, MD ENDOSCOPY [facility] [place] [address] 01/26/2022 Office Visit Hematology and Oncology Fabian Cameron MD [facility] HEMATOLOGY/[place] [address] Loan Burton, NOLAN [facility] HEMATOLOGY/[place] [address] 01/26/2022 Infusion Hematology and Oncology 02/02/2022 Office Visit Hematology and Oncology Fabian Cameron MD [facility] DR HEMATOLOGY/[place] [address] 02/02/2022 Infusion Hematology and Oncology 02/22/2022 Telephone Hematology and Oncology Siena Lloyd RD [facility] DR[place] [address] Scheduled Procedures Name Priority Associated Diagnoses Date/Time EGD, UPPER GI ENDOSCOPY EGD with stent vs 2021 12:00 PM EDT cryotherapy. documented as of this encounter Visit Diagnoses Not on filedocumented in this encounter Care Teams International Organizer Relationship Specialty Start Date End Date Farzaneh Winkler, MACHINE FARMWORKER PCP - General General Internal Medicine 06/05/[address] [place] [id number] documented as of this encounter
--- OUTSIDE RECORDS SUMMARY | 2022-01-19 07:37 | XMS_ITS | Encounter Summary ---
:1950 Author Organization [facility] [place] [address] Care Team Providers Name Role Phone Farzaneh Winkler APRN Primary Care Provider Reason for Visit Consultation (Routine) - Specialty Diagnoses / Procedures Referred By Contact Refer red To Contact Hematology and Diagnoses Malignant neoplasm of unspecified part of right bronchus or lung Anisa [facility] Hem Onc Office Oncology [address] [address] [place] [address] Referral ID Status Reason Start Date Expiration Date Visits V isits Requested Authorized [id number] Consult, Test 05/29/2019 06/15/2020 999 [facility] PCP Updated and/or Approved Encounter Details Date Type Department Care Team Description 07/24/2019 Office Visit Hematology/Oncology Cadence Cameron MD [facility] DR HEMATOLOGY/[place] [address] Primary lung at [facility] Phuong Faulkner APRN [address] [place] [address] [place] [address] adenocarcinoma, right [address] [place] [phone] Social History Tobacco Use Types Packs/Day Years Used Date Former Smoker Cigarettes 2 1970 - 2016 Smokeless Tobacco: Former User Chew Q uit: [...] Sign Reading Time Taken Comments Blood Pressure 136/64 07/24/2019 10:35 AM EST Pulse 100 07/24/2019 10:35 AM EST Temperature 36.7 ??C (98.1 ??F) 07/24/2019 10:35 AM EST Respiratory Rate 20 07/24/2019 10:35 AM EST Oxygen Saturation 98% 07/24/2019 10:35 AM EST Inhaled Oxygen Concentration - - Weight 137.9 kg (304 lb) 07/24/2019 10:35 AM EST Height 180 cm (5' 10.87) 07/24/2019 10:35 AM EST Body Mass Index 42.56 07/24/2019 10:35 AM EST documented in this encounter Progress Notes Phuong Faulkner, LITHOGRAPH PRESS FEEDER - 07/24/2019 11:00 AM EST Subjective: Patient ID: Alin Meek is a 69 y.o. male. HPI Stage IIIa adenocarcinoma of right lung 06/03 Not a surgical candidate EGFR/ALK negative PDL 1+ at 90% Definitive RT with carbo docetaxel 07/12-08/21 achieved a [place] radiographically Durvalumab times 1 year completed 09/04/[address] as [address] therapy Last CT scan 11/19/18 stable with [place] The patient returns to the [facility] in follow-up for his stage IIIa lung cancer. He is now over a year and a half out from a diagnosis of a stage IIIa adenocarcinoma of the right lung. He was treated with combined modality therapy and then finished a year of adjuvant immunotherapy. Since we last saw him he did have a abdominal surgery to remove a polyp. Recovering fine from that. Returns to clinic today accompanied by his . Overall doing OK. Denies any fevers, chills or signs of infection. Loose nonproductive cough, no hemoptysis. Denies any new pain. He struggles with chronic back pain that has been a longstanding issue. No changes in appetite or unusual fatigue. He is seeing a registered phlebotomist part time for his COPD. He is dyspneic with exertion but doesn't feel it is any worse. They are here today to review PET scan results. Patient Active Problem List Diagnosis Code ??? 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 Benign essential hypertension I10 ??? Chronic obstructive lung disease J44.9 ??? Morbid obesity E66.01 ??? Primary malignant neoplasm of lung C34.90 ??? Pain in joint M25.50 ??? Low back pain M54.5 Current Outpatient Medications: ??? fluticasone/vilanterol (BREO ELLIPTA INHL), Inhale 1 [...] as needed for Diarrhea.,Disp: , Rfl: ??? chlorthalidone (HYGROTEN) 25 mg Tablet, Take 25 mg by mouth daily., Disp: , Rfl: ??? amLODIPine (NORVASC) 10 mg Tablet, Take 10 mg by mouth daily., Disp: , Rfl: ??? ALBUTEROL INHL, Inhale into the lungs every 4 hours as needed., Disp: , Rfl: ??? triamcinolone (KENALOG) 0.1 % Cream, Apply topically 2 times daily as needed., Disp: , Rfl: ??? metHOTREXate 2.5 mg Tablet, Take 12.5 mg by mouth once a week. On Sunday, Disp: , Rfl: ??? omeprazole (PRILOSEC) 40 mg Capsule, Delayed Release(E.C.), Take daily, 1/2 hour prior to breakfast on an empty stomach. (Patient not taking: Reported on 07/24/2019), Disp: 30 capsule, Rfl: 3 ??? losartan (COZAAR) 25 mg Tablet, Take 25 mg by mouth daily., Disp: , Rfl: Allergies Allergen Reactions ??? Lisinopril Angioedema Lips got swollen Review of Systems Constitutional: Negative for fatigue, fever and unexpected weight change. HENT: Negative for nosebleeds. Respiratory: Positive for cough. Negative for shortness of breath. Occasional cough-non productive,no hemoptysis Cardiovascular: Negative for chest pain and palpitations. Gastrointestinal: Negative for abdominal pain and diarrhea. Musculoskeletal: Positive for back pain. Chronic back pain Skin: Negative for rash. Neurological: Negative for speech difficulty. Hematological: Negative for adenopathy. Does not bruise/bleed easily. All other systems reviewed and are negative. Objective: Physical Exam Constitutional: He is oriented to person, place, and time. He appears well- nourished. No distress. HENT: Mouth/Throat: No oropharyngeal exudate. Eyes: No scleral icterus. Cardiovascular: Normal rate, regular rhythm and normal heart sounds. Pulmonary/Chest: No respiratory distress. He has wheezes. Right chest with diminshed breath sounds. Left with coarse BS throughout. Abdominal: Soft. Bowel sounds are normal. There is no splenomegaly. There is no abdominal tenderness. Musculoskeletal: General: No edema. Lymphadenopathy: He has no cervical adenopathy. He has no axillary adenopathy. Right: No inguinal adenopathy present. Left: No inguinal adenopathy present. Neurological: He is oriented to person, place, and time. White count 9.0, hemoglobin 11.8, platelets 338 Creatinine 1.23, alk phos 84 07/24/19- PET scan reviewed with Dr. Cameron and discussed with patient and his . CHEST: Multiple mildly FDG avid RIGHT pleural-based nodules within the RIGHT lung which are stable since CT 06/23/2019, however new since CT 09/02/2018 (axial images 92, 108, and 116). ?? FDG avid atelectasis/consolidation within the RIGHT lung, similar to CT from 06/23/[address] 09/02/2018, which has avidity similar to that of the mediastinal blood pool. This corresponds with the region of prior radiation therapy. Assessment and Plan: 68-year-old man who presented with a stage IIIa adenocarcinoma of the right lung. He was not a surgical candidate. He received definitive radiation with concurrent chemotherapy completing that in August2017. He achieved a partial remission by radiographic CT scan. Subsequently he was initiated on every 2 week immunotherapy with Durvalumab. He completed 1 year of that in 08/31. Recent PET scan on 07/24/19 shows mildly FDG avid right pleural based nodules that have remained stable since 06/23/19. He has some FDG avid atelectasis/consolidation within the right lung increased since CT 09/02/18. Plan is to repeat the PET scan in 3 months. Will schedule a follow up PET scan and have patient return for follow up with labs once PET has beencompleted. They understand they can call sooner if anything changes. documented in this encounter Plan of Treatment Upcoming Encounters Date Type Specialty Care Team Description 01/19/2022 Office Visit Hematology and Oncology Loan Burton APRN [facility] HEMATOLOGY/[place] [address] 01/19/2022 Infusion Hematology and Oncology Canc eled (F-ARIA CANCEL) 01/25/2022 Hospital Gastroenterology Jose Clark MD [facility] [place] [address] 01/25/2022 Surgery Gastroenterology Jose Clark UPPE R GI R, MD ENDOSCOPY [facility] [place] [address] 01/26/2022 Office Visit Hematology and Oncology Fabian Cameron MD [facility] HEMATOLOGY/[place] [address] Loan Burton APRN [facility] HEMATOLOGY/[place] [address] 01/26/2022 Infusion Hematology and Oncology 02/02/2022 Office Visit Hematology and Oncology Fabian Cameron MD [facility] HEMATOLOGY/[place] [address] 02/02/2022 Infusion Hematology and Oncology 02/22/2022 Telephone Hematology and Oncology Siena Lloyd RD [facility] DRIVE [place]OLOGY [place] [address] Scheduled Procedures Name Priority Associated Diagnoses Date/Time EGD, UPPER GI ENDOSCOPY EGD with stent vs 2021 12:00 PM EDT cryotherapy. documented as of this encounter Visit Diagnoses Diagnosis Primary lung adenocarcinoma, right documented in this encounter Care Teams Fish Straightener Relationship Specialty Start Date End Date Farzaneh Winkler, LITHOGRAPH PRESS FEEDER PCP - General General Internal Medicine 06/05/[address] [place] [address] documented as of this encounter
--- OUTSIDE RECORDS SUMMARY | 2022-01-19 07:37 | XMS_ITS | Encounter Summary ---
:1950 Author Organization [facility] [place] [address] Care Team Providers Name Role Phone Farzaneh Winkler APRN Primary Care Provider Reason for Visit Diagnostic Test (Routine) - Closed Specialty Diagnoses / Procedures Referred By Contact Refer red To Contact Radiology Diagnoses Primary lung adenocarcinoma, right Phuong Faulkner APRN [facility] Rad Nuclear Med Procedures NM PET CT Skull Base to Mid-thigh [address] [place] [address] [place] [address] [place], [place] [address] Referral ID Status Reason Start Date Expiration Date Visits V isits Requested Authorized [id number] Closed Specialty 06/26/2019 12/24/2020 1 1 Service Requested Encounter Details Date Type Department Care Team Description 07/22/2019 Hospital Encounter Nuclear Medicine at Phuong Faulkner Mary Hitchcock APRN [address] [place] [address] [place], [place] [phone] (Wo rk) Social History Tobacco Use Types [...] mouth daily. omeprazole (PRILOSEC) 40 Take daily, / 30 capsule 3 201709/04/2019 mg Capsule, Delayed hour prior to Release(E.C.) breakfast on an empty stomach. amLODIPine (NORVASC) 10 Take 10 mg by mouth 0 10/21/2019 mg Tablet daily. documented as of this encounter Plan of Treatment Upcoming Encounters Date Type Specialty Care Team Description 01/19/2022 Office Visit Hematology and Oncology Loan Burton, NOLAN [facility] HEMATOLOGY/[place] [address] 01/19/2022 Infusion Hematology and Oncology Canc maira (F-ARIA CANCEL) 01/25/2022 Hospital Gastroenterology Jose Clark Encounter RMD [facility] [place]STROENTER[place] [address] 01/25/2022 Surgery Gastroenterology Jose Clark EGD, LOLA Yates MD ENDOSCOPY [facility] DR GASTROENTEROLOG [place] [address] 01/26/2022 Office Visit Hematology and Oncology Fabian Cameron MD [facility] DR HEMATOLOGY/[place] [address] Loan Burton, CORRESPONDENCE DICTATOR [facility] HEMATOLOGY/[place] [address] 01/26/2022 Infusion Hematology and Oncology 02/02/2022 Office Visit Hematology and Oncology Fabian Cameron MD [facility] DR HEMATOLOGY/[place] [address] 02/02/2022 Infusion Hematology and Oncology 02/22/2022 Telephone Hematology and Oncology Siena Lloyd, RD [facility] DRIVE HEMATOLOGY [place] [address] Scheduled Procedures Name Priority Associated Diagnoses Date/Time EGD, UPPER GI ENDOSCOPY EGD with stent vs 2021 12:00 PM EDT cryotherapy. documented as of this encounter Procedures Procedure Name Priority Date/Time Associated Diagnosis Comme nts NM PET CT SKULL Routine 07/22/2019 11:54 AM Primary lung Resul ts for this BASE TO MID-THIGH EST adenocarcinoma, procedu re are in ([facility]) right the results section. POCT GLUCOSE Routine 07/22/2019 10:38 AM Results for this EST procedure are i n the results section. documented in this encounter Results POCT Glucose (07/22/2019 10:38 AM EST) P athologist Signature POC Glucose 97 65 - 199 [facility] mg/dL [facility] Comment: Supplemental ranges: <140 mg/dL before meals <180 mg/dL all other times of the day Specimen Anatomical Collection Method Collection Time Receive d Time (Source) Location / / Volume Laterality Blood specimen 07/22/2019 10:38 0 (specimen) AM EST 10:38 AM EST Phuong Faulkner APRN POINT OF CARE TEST ORDERABLE S Performing Organization Address City/State/[place] [address] documented in this encounter Visit Diagnoses Not on filedocumented in this encounter Care Teams Day Guard Relationship Specialty Start Date End Date Farzaneh Winkler APRN PCP - General General Internal Medicine 06/05/[address] [place] [address] documented as of this encounter
--- OUTSIDE RECORDS SUMMARY | 2022-01-19 07:38 | XMS_ITS | Encounter Summary ---
:1950 Author Organization [facility] [place] [address] Care Team Providers Name Role Phone PetersonRamónrubio Huff APRN Primary Care Provider Encounter Details Date Type Department Care Team Description 06/23/2019 Ancillary Procedure Radiology Library at RakeshFabian florence MD [facility] HEMATOLOGY/[place] [address] DEPT. [phone] [place], [place] [address] (Wo rk) Social History Tobacco [...] Visit Hematology and Oncology Loan Burton APRN [facility] HEMATOLOGY/[place] [address] 01/19/2022 Infusion Hematology and Oncology Canc eled (F-ARIA CANCEL) 01/25/2022 Hospital Gastroenterology Jose Clark MD [facility] [place] [address] 01/25/2022 Surgery Gastroenterology Jose Clark, LOLA Yates MD ENDOSCOPY [facility] [place] [address] 01/26/2022 Office Visit Hematology and Oncology Fabian Cameron MD [facility] DR HEMATOLOGY/[place] [address] Loan Burton APRN [facility] HEMATOLOGY/[place] [address] 01/26/2022 Infusion Hematology and Oncology 02/02/2022 Office Visit Hematology and Oncology Fabian Cameron MD [facility] HEMATOLOGY/[place] [address] 02/02/2022 Infusion Hematology and Oncology 02/22/2022 Telephone Hematology and Oncology Siena Lloyd RD [facility] DRIVE [place] [address] Scheduled Procedures Name Priority Associated Diagnoses Date/Time EGD, UPPER GI ENDOSCOPY EGD with stent vs 2021 12:00 PM EDT cryotherapy. documented as of this encounter Procedures Procedure Name Priority Date/Time Associated Diagnosis Comme nts FILM LIBRARY Routine 06/23/2019 12:00 AM Results for this STORAGE ONLY CT EST procedure ar e in CHEST the results section. documented in this encounter Results Film Library- Storage Only CT Chest (06/23/2019 12:00 AM EST) Specimen (Source) Anatomical Location Collection Method / Collectio n Time Received Time / Laterality Volume Narrative [facility] - 06/24/2019 9:50 AM EST This exam is auto-finalizing. It's purpo se is for storage only. Fabian Cameron MD IMG FILM LIBRARY ORDERABLES Performing Organization Address City/State/ZIP Code Phon e Number [facility] [place], [place] documented in this encounter Visit Diagnoses Not on filedocumented in this encounter Care Teams Optical Effects Camera Operator Relationship Specialty Start Date End Date Farzaneh Winkler, BLENDING TECHNICIAN PCP - General General Internal Medicine 06/05/[address] [place] [address] documented as of this encounter
--- OUTSIDE RECORDS SUMMARY | 2022-01-19 07:38 | XMS_ITS | Encounter Summary ---
:1950 Author Organization [facility] [place] [address] Care Team Providers Name Role Phone Farzaneh Winkler APRN Primary Care Provider Reason for Visit Reason Comments IV Access Port flush Encounter Details Date Type Department Care Team Description 10/31/2018 Infusion Hematology Oncology at [facility] lung adenocarcinoma[address] [phone] Social History Tobacco Use [...] documented as of this encounter Progress Notes Cassi Martinez RN - 10/31/2018 9:00 AM EDT INFUSION THERAPY ADMINISTRATION NOTES TIME TREATMENT STARTED: 849 TIME TREATMENT ENDED: 854 DIAGNOSIS: NSCLC REASON FOR VISIT: MEDIPORT FLUSH ONLY IV ACCESS: Mediport GAUGE: 19G BLOOD RETURN: yes ANY S/S OF INFECTION/EXTRAVASATIONS: no signs of IV complications observed IV FLUSHED WITH: 20cc NS and 500 units Heparin IV DISCONTINUED: yes ASSESSMENT: Patient tolerated treatment well. PLAN: Return to clinic per routine. documented in this encounter Plan of Treatment Upcoming Encounters Date Type Specialty Care Team Description 01/19/2022 Office Visit Hematology and Oncology Loan Burton, NOLAN [facility] HEMATOLOGY/[place] [address] 01/19/2022 Infusion Hematology and Oncology Canc eled (F-ARIA CANCEL) 01/25/2022 Hospital Gastroenterology Jose Clark MD [facility] GASTROENTEROLOG [place] [address] 01/25/2022 Surgery Gastroenterology Jose Clark EGLuz, LOLA Yates MD ENDOSCOPY [facility] GASTROENTEROLOG [place] [address] 01/26/2022 Office Visit Hematology and Oncology Fabian Cameron MD [facility] HEMATOLOGY/[place] [address] Loan Burton, NOLAN [facility] HEMATOLOGY/[place] [address] 01/26/2022 Infusion Hematology and Oncology 02/02/2022 Office Visit Hematology and Oncology Fabian Cameron MD [facility] HEMATOLOGY/[place] [address] 02/02/2022 Infusion Hematology and Oncology 02/22/2022 Telephone Hematology and Oncology Siena Lloyd RD [facility] DRIVE HEMATOLOGY [place] [address] Scheduled Procedures Name Priority Associated Diagnoses Date/Time EGD, UPPER GI ENDOSCOPY EGD with stent vs 2021 12:00 PM EDT cryotherapy. documented as of this encounter Visit Diagnoses Diagnosis Primary lung adenocarcinoma, right documented in this encounter Care Teams Greens Picker Relationship Specialty Start Date End Date Farzaneh Winkler, COLLISION ESTIMATOR PCP - General General Internal Medicine 06/05/[address] [place] [address] documented as of this encounter
--- OUTSIDE RECORDS SUMMARY | 2022-01-19 07:38 | XMS_ITS | Encounter Summary ---
:1950 Author Organization [facility] [place] [address] Care Team Providers Name Role Phone Farzaneh Winkler Daria FRANCISCO Primary Care Provider Encounter Details Date Type Department Care Team Description 05/22/2018 Orders Only Hematology/Oncology Cadence Cameron MD Primary lung adenocarcinoma, right; at [facility] due to drugs [address] [place] [address] [facility] [place] HEMATOLOGY/ONCOLO [address] [place] DEPT. [phone] [place], [place] [address] Social History Tobacco Use Types [...] Visit Hematology and Oncology Loan Burton, NOLAN [facility] HEMATOLOGY/[place] [address] 01/19/2022 Infusion Hematology and Oncology Canc eled (F-ARIA CANCEL) 01/25/2022 Hospital Gastroenterology Jose Clark MD [facility] GASTROENTEROLOG [place] [address] 01/25/2022 Surgery Gastroenterology Jose Clark, LOLA Yates MD ENDOSCOPY [facility] GASTROENTEROLOG [place] [address] 01/26/2022 Office Visit Hematology and Oncology Fabian Cameron MD [facility] DR HEMATOLOGY/[place] [address] Loan Burton APRN [facility] HEMATOLOGY/[place] [address] 01/26/2022 Infusion Hematology and Oncology 02/02/2022 Office Visit Hematology and Oncology Fabian Cameron MD [facility] HEMATOLOGY/[place] [address] 02/02/2022 Infusion Hematology and Oncology 02/22/2022 Telephone Hematology and Oncology Siena Lloyd RD [facility] DRIVE HEMATOLOGY [place] [address] Scheduled Procedures Name Priority Associated Diagnoses Date/Time EGD, UPPER GI ENDOSCOPY EGD with stent vs 2021 12:00 PM EDT cryotherapy. 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
--- OUTSIDE RECORDS SUMMARY | 2022-01-19 07:38 | XMS_ITS | Encounter Summary ---
:1950 Author Organization [facility] [place] [address] Care Team Providers Name Role Phone Farzaneh Winkler Daria FRANCISCO Primary Care Provider Encounter Details Date Type Department Care Team Description 07/18/2018 Office Visit Hematology/Oncology Cadence Cameron MD Primary lung adenocarcinoma, right; at [facility] Hypothyroidism due to drugs [address] [place] [address] [facility] [place] [address] DEPT. [phone] [place] [address] Social History Tobacco Use Types Packs/Day Years [...] Sign Reading Time Taken Comments Blood Pressure 146/79 07/18/2018 10:24 AM EST Pulse 82 07/18/2018 10:24 AM EST Temperature 36.8 ??C (98.3 ??F) 07/18/2018 10:24 AM EST Respiratory Rate 24 07/18/2018 10:24 AM EST Oxygen Saturation 98% 07/18/2018 10:24 AM EST Inhaled Oxygen Concentration - - Weight 146.3 kg (322 lb 9.6 oz) 07/18/2018 10:24 AM EST Height 180 cm (5' 10.87) 07/18/2018 10:24 AM copied EST Body Mass Index 45.16 07/18/2018 10:24 AM EST documented in this encounter Progress Notes Fabian Cameron MD - 07/18/2018 10:30 AM EST Subjective: Patient ID: Alin Meek is a 68 y.o. male. HPI Stage IIIa adenocarcinoma of right lung 06/03 Not a surgical candidate EGFR/ALK negative PDL 1+ at 90% Definitive RT with carbo docetaxel 07/12-08/21 achieved a NM radiographically Durvalumab times 1 year initiated 09/[address] adjuvant therapy Last CT scan 04/04 stable with NM The patient returns to the [facility] in follow-up for his ongoing immunotherapy for his stage IIIa lung cancer. He had a radiographic response to initial treatment and has remained stable with ongoing immunotherapy. He has been tolerating immunotherapy without signs of toxicity. No diarrhea. He still is short of breath. He thinks his dyspnea on exertion is a little bit worse. No shortness of breath at rest. No orthopnea. He is coughing and wheezing. Not using his albuterol inhaler much. No fevers. No hemoptysis. Patient Active Problem List Diagnosis Code ??? 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 Benign essential hypertension I10 ??? Chronic obstructive lung disease J44.9 ??? Morbid obesity E66.01 ??? Primary malignant neoplasm of lung C34.90 ??? Pain in joint M25.50 ??? Low back pain M54.5 Current Outpatient Medications: ??? metHOTREXate 2.5 mg Tablet, Take 12.5 mg by mouth once a week. On Sunday, Disp: , Rfl: ??? cholecalciferol, Vitamin D3, 2,000 unit Tablet, Take 2,000 Units by mouth daily., Disp: , Rfl: ??? b complex vitamins Capsule, Take 1 capsule by mouth daily., Disp: , Rfl: ??? budesonide-formoterol (SYMBICORT) 160-4.5 mcg/actuation HFA Aerosol Inhaler, INHALE 2 PUFFS BY MOUTH TWICE A DAY, Disp: , Rfl: ??? gabapentin (NEURONTIN) 300 mg Capsule, Take 300 mg by mouth 2 times daily., Disp: , Rfl: ??? omeprazole (PRILOSEC) 40 mg Capsule, Delayed Release(E.C.), Take daily, 1/2 hour prior to breakfast on an empty stomach., Disp: 30 capsule, Rfl: 3 ??? losartan [...] daily as needed., Disp: , Rfl: ??? prochlorperazine (COMPAZINE) 10 mg Tablet, TAKE ONE TABLET BY MOUTH EVERY SIX HOURS NEEDED FOR NAUSEA/VOMITING, Disp: , Rfl: ??? loperamide (IMODIUM A-D) 2 mg Capsule, Take 2 mg by mouth 4 times daily as needed for Diarrhea.,Disp: , Rfl: Allergies Allergen Reactions ??? Lisinopril [...] Pulmonary/Chest: No respiratory distress. He has wheezes. Abdominal: Soft. Bowel sounds are normal. There is no splenomegaly. There is no tenderness. Musculoskeletal: He exhibits no edema. Lymphadenopathy: He has no cervical adenopathy. He has no axillary adenopathy. Right: No inguinal adenopathy present. Left: No inguinal adenopathy present. Neurological: He is oriented to person, place, and time. White count 12.3, hemoglobin 13.0, platelets 323 Creatinine 1.4 TSH 1.3 Assessment and Plan: 68-year-old man who presented with a stage IIIa adenocarcinoma of the right lung. He was not a surgical candidate. He received definitive radiation with concurrent chemotherapy completing that in August2017. He achieved a partial remission by radiographic CT scan. Subsequently he was initiated on every 2 week immunotherapy with Durvalumab. He is planning to complete 1 year of that. So far he is doing well with that with no signs of immuno toxicity. I recommend that he continue with every 2 week infusions. He will finish his year of therapy sometime in August. I plan to obtain a CTscan at that point we will see him every 3 months in follow-up. His breathing seems a little bit worse. I suspect this is a flare of his COPD. I did recommend that we get a chest x-ray to be sure there is no new pneumonia or other signs of immune O toxicity. We will set that up through the [place] at his request. He will continue to return every 2 weeks. He is visiting his brother at the end of July in [place] so we will delay his therapy scheduled for 08/15 until 08/22. I will plan to see him back in 09/05 which will be his last dose of treatment. We will plan to get a Chest CT scan right before that visit. documented in this encounter Plan of Treatment Upcoming Encounters Date Type Specialty Care Team Description 01/19/2022 Office Visit Hematology and Oncology Loan Burton, [facility] HEMATOLOGY/[place] [address] 01/19/2022 Infusion Hematology and Oncology Canc maira (F-ARIA CANCEL) 01/25/2022 Hospital Gastroenterology Jose Clark MD [facility] [place] [address] 01/25/2022 Surgery Gastroenterology Jose Clark EGD, UPPE Milan Yates MD ENDOSCOPY [facility] [place] [address] 01/26/2022 Office Visit Hematology and Oncology Fabian Cameron MD [facility] HEMATOLOGY/[place] [address] Loan Burton APRN [facility] HEMATOLOGY/[place] [address] 01/26/2022 Infusion Hematology and Oncology 02/02/2022 Office Visit Hematology and Oncology Fabian Cameron MD [facility] HEMATOLOGY/[place] [address] 02/02/2022 Infusion Hematology and Oncology 02/22/2022 Telephone Hematology and Oncology Siena Lloyd RD [facility] DRIVE [place] [address] Scheduled Procedures Name Priority Associated Diagnoses Date/Time EGD, UPPER GI ENDOSCOPY EGD with stent vs 2021 12:00 PM EDT cryotherapy. 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
--- OUTSIDE RECORDS SUMMARY | 2022-01-19 07:38 | XMS_ITS | Encounter Summary ---
:1950 Author Organization [facility] [place] [address] Care Team Providers Name Role Phone PetersonFarzaneh Daria REVIEW SPECIALIST Primary Care Provider Encounter Details Date Type Department Care Team Description 03/28/2018 Office Visit Hematology/Oncology Shadi Duke, Prim pilar lung at [facility] REVIEW SPECIALIST adenocarcinoma, right [address] [place], [place] [address] [place] [id number] (Wo rk) Social History Tobacco Use Types Packs/Day Years Used Date Former Smoker Cigarettes 2 1969 - 2015 Smokeless Tobacco: Former User Chew Q uit: 1975 Alcohol Use Standard Drinks/Week Comments No 0 [...] Sign Reading Time Taken Comments Blood Pressure 144/68 03/28/2018 11:38 AM EDT Pulse 97 03/28/2018 11:38 AM EDT Temperature 36.8 ??C (98.2 ??F) 03/28/2018 11:38 AM EDT Respiratory Rate 16 03/28/2018 11:38 AM EDT Oxygen Saturation 96% 03/28/2018 11:38 AM EDT Inhaled Oxygen Concentration - - Weight 142.9 kg (315 lb) 03/28/2018 11:38 AM EDT Height 180 cm (5' 10.87) 03/28/2018 11:38 AM EDT Body Mass Index 44.1 03/28/2018 11:38 AM EDT documented in this encounter Progress Notes Santa Shadi A, REVIEW SPECIALIST - 03/28/2018 11:45 AM EDT Diagnosis: 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 CT scan of the chest done at [facility] 01/15/18 demonstrates that the mass is gone down further now down to 2.1 cm. The lymph nodes are all less than 1 cm. He continues to have 2 stable masses on the right adrenal that may not be metastatic tumor and does have now post radiation a moderate asymptomatic right effusion. Subjective: Alin comes in today for his 14th infusion of durvalumab. He has no new symptoms to report and specifically denies changes in his breathing, bowels, or skin. He continues to tolerate therapy very well. His main issue is low back pain that is chronic since he had back surgery many years ago. Past medical history and social history are reviewed and unchanged Past Medical History: Diagnosis Date ??? Adenocarcinoma, lung, right ??? COPD (chronic obstructive pulmonary disease) ??? DJD (degenerative joint disease) ??? HTN (hypertension), benign ??? PAC (premature atrial contraction) Past Surgical History: Procedure Laterality Date ??? LUMBAR DISC SURGERY ??? SUBTOTAL COLECTOMY 05/23/2016 ??? TOTAL KNEE ARTHROPLASTY Right ??? UMBILICAL HERNIA REPAIR Allergies Allergen Reactions ??? Lisinopril Angioedema Lips got swollen Medications 07/02/17 1417 Medication Sig Taking? losartan (COZAAR) 25 mg Tablet Take 25 mg by mouth daily. chlorthalidone (HYGROTEN) 25 mg Tablet Take 25 mg by mouth daily. amLODIPine (NORVASC) 10 mg Tablet Take 10 mg by mouth daily. BUDESONIDE/FORMOTEROL FUMARATE (SYMBICORT INHL) Inhale into the lungs 2 times daily. ALBUTEROL INHL Inhale into the lungs every 4 hours as needed. triamcinolone (KENALOG) 0.1 % Cream Apply topically 2 times daily as needed. Family History Problem Relation Age of Onset ??? Cancer Brother throat Social History Social History ??? Marital status: Unknown Spouse name: Stephanie ??? Number of children: N/A ??? Years of education: N/A Occupational History ??? [employer] 8 months ??? 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 Smoking status: Former Smoker Packs/day: 2.00 Types: Cigarettes Start date: 1969 Quit date: 2015 ??? Smokeless tobacco: Former User Types: Chew Quit date: 1974 ??? Alcohol use No Comment: usd to drink heavily ( 12 pck/day) quit 2015 ??? Drug use: No ??? Sexual activity: Not on file Other Topics Concern ??? Not on file Social History Narrative Review of Systems Constitutional: Negative for fever, chills, activity change, fatigue and unexpected weight change. Morbidly obese. HENT: Negative for sore throat, mouth sores and trouble swallowing. Eyes: Negative. Respiratory: Occasional cough, shortness of breath and wheezing when he exerts himself Cardiovascular: Negative for chest pain, palpitations and leg swelling. Gastrointestinal: Negative for nausea, vomiting, abdominal pain, diarrhea, constipation and abdominal distention. Genitourinary: Negative for dysuria and difficulty urinating. Musculoskeletal: Chronic LBP unchanged Skin: Negative. Neurological: Negative. Hematological: Negative for adenopathy. BP 144/68 (Patient Position: Sitting) Pulse 97 Temp 36.8 ??C (98.2 ??F) (Oral) Resp 16 Ht 180 cm (5' 10.87) Wt (!) 142.9 kg (315 lb) SpO2 96% BMI 44.1 kg/m2 Wt Readings from Last 3 Encounters: 03/28/18 (!) 142.9 kg (315 lb) 03/14/18 (!) 142.4 kg (314 lb) 02/28/18 (!) 141.1 kg (311 lb) Physical Exam Constitutional: He is oriented to person, place, and time. He appears well- developed and well-nourished. HENT: Head: Normocephalic. Mouth/Throat: Oropharynx is clear and moist. No oropharyngeal exudate. Eyes: Conjunctivae and EOM are normal. Pupils are equal, round, and reactive to light. No scleral icterus. Neck: Normal range of motion. Neck supple. Cardiovascular: Normal rate and regular rhythm. Pulmonary/Chest: Effort normal. He has wheezes. Abdominal: Soft. There is no guarding. Exam limited by obesity Musculoskeletal: Normal range of motion. He exhibits edema. Lymphadenopathy: He has no cervical adenopathy. He has no axillary adenopathy. Right: No supraclavicular adenopathy present. Left: No supraclavicular adenopathy present. Neurological: He is alert and oriented to person, place, and time. Skin: Skin is warm and dry. Psychiatric: He has a normal mood and affect. His behavior is normal. Labs: 03/28/18 CBC: WBC 11.22 hemoglobin 12.9 platelets 322 CMP: Sodium 138 potassium 4.1 BUN 21 creatinine 1.38 glucose 141 calcium 8.4 total bili 0.3 AST 15 ALT 20 alk phos 95 total protein 7.9 albumin 3.3 TSH 1.75 Thyroxine 8.8 ONCBCN ONCOLOGY (AMB) 03/14/2018 Day, Cycle Day 1, Cycle 14 CARBOplatin (PARAPLATIN) IV DOCEtaxel (TAXOTERE) IV durvalumab (Imfinzi) IV 1,240 mg Assessment/plan: 1. NSCLC s/p carbo/docetaxel with concurrent XRT completed 08/22/17: Alin is continuing to do well with the durvalumab. Plan for C15 today. Will be due for restaging 04/17/18 so I will set him up for that for his next cycle in 2wks. 2. Pleural effusion: post XRT treatment - will follow. May resolve on its own. Shadi Duke, MSN, SENIOR TALENT ACQUISITION SPECIALIST, AOCN Hematology/Oncology Nurse Practitioner [place], [place] [phone] documented in this encounter Miscellaneous Notes Addendum Note - Shadi Duke APRN - 03/28/2018 12:19 PM EDT Addended by: SHADI DUKE on: 03/28/2018 12:19 PM Modules accepted: Orders documented in this encounter Plan of Treatment Upcoming Encounters Date Type Specialty Care Team Description 01/19/2022 Office Visit Hematology and Oncology Loan Burton APRN [facility] HEMATOLOGY/[place] [address] 01/19/2022 Infusion Hematology and Oncology Canc eled (F-ARIA CANCEL) 01/25/2022 Hospital Gastroenterology Jose Clark MD [facility] GASTROENTEROLOG [place] [address] 01/25/2022 Surgery Gastroenterology Jose Clark UPPE R GI R, MD ENDOSCOPY [facility] [place]STROENTER[place] [address] 01/26/2022 Office Visit Hematology and Oncology Fabian Cameron MD [facility] HEMATOLOGY/[place] [address] Loan Burton APRN [facility] HEMATOLOGY/[place] [address] 01/26/2022 Infusion Hematology and Oncology 02/02/2022 Office Visit Hematology and Oncology Fabian Cameron MD [facility] HEMATOLOGY/[place] [address] 02/02/2022 Infusion Hematology and Oncology 02/22/2022 Telephone Hematology and Oncology Siena Lloyd RD [facility] DRIVE HEMATOLOGY [place] [address] Scheduled Procedures Name Priority Associated Diagnoses Date/Time EGD, UPPER GI ENDOSCOPY EGD with stent vs 2021 12:00 PM EDT cryotherapy. documented as of this encounter Procedures Procedure Name Priority Date/Time Associated Diagnosis Comme nts LAB SCAN 03/14/2018 12:00 AM Results for this EDT procedure are i n the results section . documented in this encounter Results SCAN DOC: LAB (03/14/2018 12:00 AM EDT) Narrative 03/14/2018 12:00 AM EDT This result has an attachment that is no t available. Ordered by an unspecified provider. Scanning Provider MEDIA MGR SCAN EXT ORDR/RSLT documented in this encounter Visit Diagnoses Diagnosis Primary lung adenocarcinoma, right documented in this encounter Care Teams Conche Operator Relationship Specialty Start Date End Date Farzaneh Winkler, REVIEW SPECIALIST PCP - General General Internal Medicine 06/05/[address] [place], [place] [id number] documented as of this encounter
--- OUTSIDE RECORDS SUMMARY | 2022-01-19 07:38 | XMS_ITS | Encounter Summary ---
:1950 Author Organization [facility] [place] [address] Care Team Providers Name Role Phone Farzaneh Winkler APRN Primary Care Provider Reason for Visit Reason Comments Chemotherapy Cycle 24, Day 1 Durvalumab Treatment/Therapy Plan Authorization (Routine) - Closed Specialty Diagnoses / Procedures Referred By Contact Refer red To Contact Diagnoses Primary lung adenocarcinoma, right Jonathan Bishop MD [facility] Hem Onc Infusion Procedures [place] CHEMOTHERAPY DRUG IMFINZI (DURVALUMAB) [address] [place] [address] [address] [place] [address] Phone: Fax: Referral ID Status Reason Start Date Expiration Date Visits Requ ested Visits Authorized [id number] Closed 08/21/2017 09/07/2023 50 50 Encounter Details Date Type Department Care Team Description 08/01/2018 Infusion Hematology Oncology at [facility] lung adenocarcinoma, [facility] right [address] [place] [phone] Social History Tobacco Use Types [...] Sign Reading Time Taken Comments Blood Pressure 109/56 08/01/2018 12:50 PM EST Pulse 100 08/01/2018 12:50 PM EST Temperature 36.7 ??C (98.1 ??F) 08/01/2018 12:50 PM EST Respiratory Rate 20 08/01/2018 12:50 PM EST Oxygen Saturation 97% 08/01/2018 12:50 PM EST Inhaled Oxygen Concentration - - Weight 145.2 kg (320 lb) 08/01/2018 12:50 PM EST Height 180 cm (5' 10.87) 08/01/2018 12:50 PM EST copie d Body Mass Index 44.8 08/01/2018 12:50 PM EST documented in this encounter Progress Notes Tena Leblanc RN - 08/01/2018 1:00 PM EST INFUSION THERAPY ADMINISTRATION NOTES CYCLE #24, Day 1 REASON FOR VISIT: Durvalumab infusion SUBJECTIVE: Pierre offers no complaints. OBJECTIVE LAB DATA: done today at [facility] -- WBC 11.79, Hgb 12.8, Hct 41.1, PLT 380k, ANC 8.38, BUN 20, Cr 1.38, TSH 1.54, T4 8.3 IV ACCESS: Port already accessed by OSH for lab draw; dressing CDI, flushes easily with excellent blood return noted. Port flushed with 20cc NS and 500 units Heparin then de-accessed after completion of treatment. Pre administration: Chemotherapy orders independently verified for drug name, route, and dosage per patient's height, weight and BSA by Tena Leblanc, MADISYN and On-site pharmacist. REACTIONS (DESCRIPTION, TIME, INTERVENTION AND EFFECTIVENESS) none ASSESSMENT: Alin was awake, alert and tolerated treatment well. PLAN: Return to clinic as schedualed. documented in this encounter Plan of Treatment Upcoming Encounters Date Type Specialty Care Team Description 01/19/2022 Office Visit Hematology and Oncology Loan Burton, SUBSURFACE AUGMENTEE ELINT OPERATOR [facility] HEMATOLOGY/[place] [address] 01/19/2022 Infusion Hematology and Oncology Canc eled (F-ARIA CANCEL) 01/25/2022 Hospital Gastroenterology Jose Clark MD [facility] [place] [address] 01/25/2022 Surgery Gastroenterology Jose Clark UPPE R GI R, MD ENDOSCOPY [facility] [place] [address] 01/26/2022 Office Visit Hematology and Oncology Fabian Cameron MD [facility] HEMATOLOGY/[place] [address] Loan Burton APRN [facility] HEMATOLOGY/[place] [address] 01/26/2022 Infusion Hematology and Oncology 02/02/2022 Office Visit Hematology and Oncology Fabian Cameron MD [facility] HEMATOLOGY/[place] [address] 02/02/2022 Infusion Hematology and Oncology 02/22/2022 Telephone Hematology and Oncology Siena Lloyd, MUUKND [facility] DRIVE [place] [address] Scheduled Procedures Name Priority Associated Diagnoses Date/Time EGD, UPPER GI ENDOSCOPY EGD with stent vs 2021 12:00 PM EDT cryotherapy. documented as of this encounter Visit Diagnoses Diagnosis Primary lung adenocarcinoma, right documented in this encounter Administered Medications Inactive Administered Medications - up to 3 most recent administrations Medication Order MAR Action Action Date Dose Rate Site durvalumab (Imfinzi) 1,360 New Bag 08/01/2018 1:39 PM EST 1,360 mg 277 mL/hr mg in sodium chloride 0.9% 277.2 mL infusion 1,360 mg, Intravenous, ONCE, 1 dose, On Stephanie 08/01/18 at 1415, Administer over 60 Minutes, No dose adjustments., Dose Ordered = 1433 mg (10 mg/kg). Pharmacist rounded dose per procedure. heparin, porcine 100 unit/mL flush 500 Given 08/01/2018 2:45 PM EST 500 Units Units 500 Units, Intravenous, ONCE PRN, Starting on Stephanie 08/01/18 at 1254, Until Stephanie 08/01/18 at 1657, Line Care, Refer to Intravenous (IV) Procedure: Accessing Implanted Vascular Access Devices (654) procedure and/or Intravenous (IV) Job Aid: Adult Flushing & Catheter Care (2830) job aid for additional information regarding guidelines and administration., Routine sodium chloride 0.9 % flush 5-20 mL Given 08/01/2018 2:45 PM EST 20 mLs 5-20 mL, Intravenous, EVERY 1 MIN PRN, Starting on Stephanie 08/01/18 at 1254, Until Stephanie 08/01/18 at 1657, Line Care, Flush pertains to all indwelling lines. Flush per protocol found in the job aid using the link provided on this medication record. Refer to Intravenous (IV) Job Aid: Adult Flushing & Catheter Care (8860) job aid for additional information regarding guidelines and administration., Routine documented in this encounter Care Teams Accountant Manager Relationship Specialty Start Date End Date Farzaneh Winkler, SUBSURFACE AUGMENTEE ELINT OPERATOR PCP - General General Internal Medicine 06/05/[address] [place] [address] documented as of this encounter
--- OUTSIDE RECORDS SUMMARY | 2022-01-19 07:38 | XMS_ITS | Encounter Summary ---
:1950 Author Organization [facility] [place] [address] Care Team Providers Name Role Phone Farzaneh Winkler APRN Primary Care Provider Reason for Visit Reason Comments Chemotherapy Durvalumab, Cycle 22, Day 1 Treatment/Therapy Plan Authorization (Routine) - Closed Specialty Diagnoses / Procedures Referred By Contact Refer red To Contact Diagnoses Primary lung adenocarcinoma, right Jonathan Bishop MD [facility] Hem Onc Infusion Procedures [place] CHEMOTHERAPY DRUG IMFINZI (DURVALUMAB) [address] [place] [address] 466 36 [place] [address] Phone: Fax: Referral ID Status Reason Start Date Expiration Date Visits Requ ested Visits Authorized [id number] Closed 08/21/2017 09/07/2023 50 50 Encounter Details Date Type Department Care Team Description 07/04/2018 Infusion Hematology Oncology at [facility] lung adenocarcinoma, [facility] right [address] [place] [address] [phone] Social History Tobacco Use Types [...] Sign Reading Time Taken Comments Blood Pressure 138/64 07/04/2018 11:20 AM EST Pulse 79 07/04/2018 11:20 AM EST Temperature 36.4 ??C (97.5 ??F) 07/04/2018 11:20 AM EST Respiratory Rate 20 07/04/2018 11:20 AM EST Oxygen Saturation 98% 07/04/2018 11:20 AM EST Inhaled Oxygen Concentration - - Weight 144.2 kg (318 lb) 07/04/2018 11:20 AM EST Height 180 cm (5' 10.87) 07/04/2018 11:20 AM EST copie d Body Mass Index 44.52 07/04/2018 11:20 AM EST documented in this encounter Progress Notes Javon Chery RN - 07/04/2018 11:30 AM EST INFUSION THERAPY ADMINISTRATION NOTES CYCLE #22, Day 1 REASON FOR VISIT: Durvalumab infusion SUBJECTIVE: Pierre offers no complaints. OBJECTIVE LAB DATA: WNL for today's infusion. IV ACCESS: Port already accessed by OSH for lab draw; dressing CDI, flushes easily with excellent blood return noted. Port flushed with 20cc NS and 500 units Heparin then de-accessed after completion of treatment. Pre administration: Chemotherapy orders independently verified for drug name, route, and dosage per patient's height, weight and BSA by JAVON CHERY RN and On-site pharmacist. REACTIONS (DESCRIPTION, TIME, INTERVENTION AND EFFECTIVENESS) none ASSESSMENT: Alin was awake, alert and tolerated treatment well. PLAN: Return to clinic as schedualed. documented in this encounter Plan of Treatment Upcoming Encounters Date Type Specialty Care Team Description 01/19/2022 Office Visit Hematology and Oncology Loan Burton, SAFETY SCIENTIST [facility] HEMATOLOGY/[place] [address] 01/19/2022 Infusion Hematology and Oncology Canc eled (CARLOS CANCEL) 01/25/2022 Hospital Gastroenterology Jose Clark MD [facility] [place] [address] 01/25/2022 Surgery Gastroenterology Jose Clark EGD, LOLA Yates MD ENDOSCOPY [facility] [place] [address] 01/26/2022 Office Visit Hematology and Oncology Fabian Cameron MD [facility] DR HEMATOLOGY/[place] [address] Loan Burton APRN [facility] HEMATOLOGY/[place] [address] 01/26/2022 Infusion Hematology and Oncology 02/02/2022 Office Visit Hematology and Oncology Fabian Cameron MD [facility] DR HEMATOLOGY/[place] [address] 02/02/2022 Infusion Hematology and Oncology 02/22/2022 Telephone Hematology and Oncology Siena Lloyd RD [facility] DRIVE HEMATOLOGY [place] [address] Scheduled Procedures Name Priority Associated Diagnoses Date/Time EGD, UPPER GI ENDOSCOPY EGD with stent vs 2021 12:00 PM EDT cryotherapy. documented as of this encounter Visit Diagnoses Diagnosis Primary lung adenocarcinoma, right documented in this encounter Administered Medications Inactive Administered Medications - up to 3 most recent administrations Medication Order MAR Action Action Date Dose Rate Site durvalumab (Imfinzi) 1,360 New Bag 07/04/2018 12:21 PM EST 1,360 m g 277 mL/hr mg in sodium chloride 0.9% 277.2 mL infusion 1,360 mg, Intravenous, ONCE, 1 dose, On Stephanie 07/04/18 at 1245, Administer over 60 Minutes, No dose adjustments., Dose Ordered = 1433 mg (10 mg/kg). Pharmacist rounded dose per procedure. heparin, porcine 100 unit/mL flush 500 Given 07/04/2018 1:33 PM EST 500 Units Units 500 Units, Intravenous, ONCE PRN, Starting on Stephanie 07/04/18 at 1130, Until Stephanie 07/04/18 at 1544, Line Care, Refer to Intravenous (IV) Procedure: Accessing Implanted Vascular Access Devices (654) procedure and/or Intravenous (IV) Job Aid: Adult Flushing & Catheter Care (5771) job aid for additional information regarding guidelines and administration., Routine sodium chloride 0.9 % flush 5-20 mL Given 07/04/2018 1:33 PM EST 20 mLs 5-20 mL, Intravenous, EVERY 1 MIN PRN, Starting on Stephanie 07/04/18 at 1130, Until Stephanie 07/04/18 at 1544, Line Care, Flush pertains to all indwelling lines. Flush per protocol found in the job aid using the link provided on this medication record. Refer to Intravenous (IV) Job Aid: Adult Flushing & Catheter Care (3890) job aid for additional information regarding guidelines and administration., Routine documented in this encounter Care Teams Manager Event Relationship Specialty Start Date End Date Farzaneh Winkler APRN PCP - General General Internal Medicine 06/05/[address] [place] [phone] documented as of this encounter
--- OUTSIDE RECORDS SUMMARY | 2022-01-19 07:38 | XMS_ITS | Encounter Summary ---
:1950 Author Organization [facility] [place] [address] Care Team Providers Name Role Phone Farzaneh Winkler APRN Primary Care Provider Reason for Visit Reason Comments Chemotherapy Cycle 17 Day 1 Treatment/Therapy Plan Authorization (Routine) - Closed Specialty Diagnoses / Procedures Referred By Contact Refer red To Contact Diagnoses Primary lung adenocarcinoma, right Jonathan Bishop MD [facility] Hem Onc Infusion Procedures [place] CHEMOTHERAPY DRUG IMFINZI (DURVALUMAB) [address] [place] [address] 055 [address] [place] [address] Phone: Fax: Referral ID Status Reason Start Date Expiration Date Visits Requ ested Visits Authorized [id number] Closed 08/21/2017 09/07/2023 50 50 Encounter Details Date Type Department Care Team Description 04/25/2018 Infusion Hematology Oncology at [facility] lung [facility] right [address] [place], [place] [phone] Social History Tobacco Use Types Packs/Day [...] documented as of this encounter Progress Notes Janett Wilks RN - 04/25/2018 2:00 PM EST INFUSION THERAPY ADMINISTRATION NOTES DIAGNOSIS: NSCLC CYCLE #14 REASON FOR VISIT: Durvalumab infusion SUBJECTIVE: Pierre offers no complaints. OBJECTIVE LAB DATA: WNL IV ACCESS: Port already accessed by OSH for lab draw; dressing CDI, flushes easily with excellent blood return noted. Port flushed with 20cc NS and 500 units Heparin then de-accessed after completion of treatment. Pre administration: Chemotherapy orders independently verified for drug name, route, and dosage per patient's height, weight and BSA by JANETT WILKS, MADISYN and On-site pharmacist. REACTIONS (DESCRIPTION, TIME, INTERVENTION AND EFFECTIVENESS) none ASSESSMENT: Alin was awake, alert and tolerated treatment well. PLAN: Return to clinic as schedualed. documented in this encounter Plan of Treatment Upcoming Encounters Date Type Specialty Care Team Description 01/19/2022 Office Visit Hematology and Oncology Loan Burton APRN [facility] HEMATOLOGY/[place] [address] 01/19/2022 Infusion Hematology and Oncology Canc eled (F-ARIA CANCEL) 01/25/2022 Hospital Gastroenterology Jose Clark MD [facility] [place] [address] 01/25/2022 Surgery Gastroenterology Jose Clark UPPE R GI R, MD ENDOSCOPY [facility] [place] [address] 01/26/2022 Office Visit Hematology and Oncology Fabian Cameron MD [facility] HEMATOLOGY/[place] [address] Loan Burton APRN [facility] HEMATOLOGY/[place] [address] 01/26/2022 Infusion Hematology and Oncology 02/02/2022 Office Visit Hematology and Oncology Fabian Cameron MD [facility] HEMATOLOGY/[place] [address] 02/02/2022 Infusion Hematology and Oncology 02/22/2022 Telephone Hematology and Oncology Siena Lloyd RD [facility] DRIVE [place] [address] Scheduled Procedures Name Priority Associated Diagnoses Date/Time EGD, UPPER GI ENDOSCOPY EGD with stent vs 2021 12:00 PM EDT cryotherapy. documented as of this encounter Procedures Procedure Name Priority Date/Time Associated Diagnosis Comme nts LAB SCAN 04/25/2018 12:00 AM Results for this EST procedure are i n the results section . documented in this encounter Results SCAN DOC: LAB (04/25/2018 12:00 AM EST) Narrative 04/25/2018 12:00 AM EST This result has an attachment that is no t available. Ordered by an unspecified provider. Scanning Provider MEDIA MGR SCAN EXT ORDR/RSLT documented in this encounter Visit Diagnoses Diagnosis Primary lung adenocarcinoma, right documented in this encounter Administered Medications Inactive Administered Medications - up to 3 most recent administrations Medication Order MAR Action Action Date Dose Rate Site durvalumab (Imfinzi) 1,360 New Bag 04/25/2018 3:44 PM EST 1,360 mg 277.2 mL/hr mg in sodium chloride 0.9% 277.2 mL infusion 1,360 mg, Intravenous, ONCE, 1 dose, On Stephanie 04/25/18 at 1630, Administer over 60 Minutes, No dose adjustments., Dose Ordered = 1433mg (10 mg/kg). Pharmacist rounded dose per procedure. heparin, porcine 100 unit/mL flush 500 Given 04/25/2018 4:50 PM EST 500 Units Units 500 Units, Intravenous, ONCE PRN, Starting on Stephanie 04/25/18 at 1508, Until Stephanie 04/25/18 at 1949, Line Care, Refer to Intravenous (IV) Procedure: Accessing Implanted Vascular Access Devices (654) procedure and/or Intravenous (IV) Job Aid: Adult Flushing & Catheter Care (6439) job aid for additional information regarding guidelines and administration., Routine sodium chloride 0.9 % flush 5-20 mL Given 04/25/2018 4:50 PM EST 20 mLs 5-20 mL, Intravenous, EVERY 1 MIN PRN, Starting on Stephanie 04/25/18 at 1508, Until Stephanie 04/25/18 at 1949, Line Care, Flush pertains to all indwelling lines. Flush per protocol found in the job aid using the link provided on this medication record. Refer to Intravenous (IV) Job Aid: Adult Flushing & Catheter Care (8966) job aid for additional information regarding guidelines and administration., Routine documented in this encounter Care Teams Talent Analyst Relationship Specialty Start Date End Date Farzaneh Winkler, PAYROLL BOOKKEEPER PCP - General General Internal Medicine 06/05/[address] [place] [address] documented as of this encounter
--- OUTSIDE RECORDS SUMMARY | 2022-01-19 07:38 | XMS_ITS | Encounter Summary ---
:1950 Author Organization [facility] [place] [address] Care Team Providers Name Role Phone Farzaneh Winkler Daria FRANCISCO Primary Care Provider Encounter Details Date Type Department Care Team Description 07/04/2018 Clinical Support Hematology/Oncology Adrian Gold Prim pilar lung at [facility] MUKUND [place] adenocarcinoma, right [address] [place] [address] Social History Tobacco Use Types [...] documented as of this encounter Progress Notes Adrian Gold RD - 07/04/2018 11:30 AM EST [facility] Dietitian Follow Up Assessment Seen By: Katt Gold MS, RD, PIANO REGULATOR, LD Patient and diagnosis:Mr. Meek completed definitive RT with carbo docetaxel 07/12-08/21 achieved a PRradiographically. Durvalumab times 1 year initiated 09/11 as adjuvant therapy. Assessment: HPI: Patient Active Problem List Diagnosis Code ??? 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 Benign essential hypertension I10 ??? Chronic obstructive lung disease J44.9 ??? Morbid obesity E66.01 ??? Primary malignant neoplasm of lung C34.90 ??? Pain in joint M25.50 ??? Low back pain M54.5 Meds: reviewed Labs: reviewed, NA 132 Ht: Oncology Vitals 07/26/2017 Height 180 cm Wt:Gain Wt Readings from Last 3 Encounters: 06/20/18 (!) 143.8 kg (317 lb) 06/06/18 (!) 144.4 kg (318 lb 6.4 oz) 05/23/18 (!) 142 kg (313 lb) Wt Hx: UBW: % UBW: IBW: +/- 10% % IBW: BMI: 42 ___ Edema ___ Ascites ___Muscle wasting Calorie needs: Protein needs: Fluid needs: Food Intake: one meal/d is baseline. Not eating as much. Snacking more through the day now, instead of one meal/d. Am: Seldom eats. Not yet today, typically left overs from dinner. Noon: Hasn't eaten yet. Pm: kielbasa and mac and cheese Snacks: back to chips and dips Fluids: Decaf, unsweetened iced tea - about ~ 1 g/d. water: 1 cup or more/d. Supplements/Frequency: Denies ___ Ensure/Plus ___ Boost/Plus - thinking about getting him some ___ CIB - has in the past ___ Other: Teas, vitamins, or other nutritional supplements: one/d for men Food allergies or avoidances: doesn't like avocado Appetite:deines issues likes spicy stuff, but gets heartburn. Nausea: +, compazine on hand. Vomiting: denies Chewing: deines Dentition: Swallowing: denies Taste Changes: Too good. Bowels: deniees Food availability/purchasing, meal planning and preparation: He usually did, and does more now. Depression: Social Support: Economic Issues: Physical Activity: plays solitaire and poker Level of Motivation/Readiness to Change: Nutrition Diagnosis: [facility]. 07/04/17: Weight stable with gain since our last visit. He is 2 months from completion of his year ofimmunotherapy. Offers no nutritional complaints or barriers for intake. He is at low-minimal nutrition risk. 08/03/17: Weight down minimally. Nausea improved with dose reduction of carboplatin, increased fluids. Eating one meal/d. Added powerade to his beverage intake. Discussed diluting this to add additionalfluids. Bowels continue to be loose. Discussed the need for at least one cup of PO fluid for every loose BM. We discussed the concept of food as medicine and the importance of eating small, frequent, calorically dense, protein-rich meals and snacks throughout the day. Reviewed lower fiber foods that may help to slow bowel transit time. Bowels are improving. Difficult to determine if diarrhea is a viral component, as chavez ramesh had GI bug. Will follow up in one week to review bowels. 08/16/17: Weight down 1.6% in two weeks. Reports appetite is lower, offering him snacks throughout the day. Recommended high calorie, high protein supplement such as Ensure or CIB to help stabilize weight. asked if they should be concerned with weight loss. Explained that there are studies to support increased side effects and in-patient stays, and slower recovery in obese patients with significant weight loss during treatment. Discussed the overall goal is to maintain weight during treatment and after recovery, he can return for guidance on weight loss. 09/27/17: Weight down moderately in 2.5 weeks. Decreased appetite. Eating more throughout the day versus sticking to usual one meal/d. Recommended high calorie/high protein liquid supplement every day. Provided him with Ensure Plus sample kit. 11/08/17: Weight rebounded. Not taking supplements, continues to eat more frequently than per baseline. Eating more varied diet and now able to return to foods he typically eats that have some spice. Minimal nutritional risk at this time. Nutrition Intervention: ? Increase caloric needs: discussed ? Modify diet consistency: ? Increase frequency of meals and snacks: q 2-3 hrs ? Need for supplements: once/d Nutrition Goals: weight stability and LBM preseravation Educational Handouts provided: -- Other Recommendations: ? Monitoring and Evaluation: Will follow up with florence Sneed I have provided him with my card and contact information should he have any questions in the mean time. Thank you for this consult. documented in this encounter Plan of Treatment Upcoming Encounters Date Type Specialty Care Team Description 01/19/2022 Office Visit Hematology and Oncology Loan Burton APRN [facility] HEMATOLOGY/[place] [address] 01/19/2022 Infusion Hematology and Oncology Canc eled (F-ARIA CANCEL) 01/25/2022 Hospital Gastroenterology Jose Clark MD [facility] [place] [address] 01/25/2022 Surgery Gastroenterology Jose Clark UPPE R GI R, MD ENDOSCOPY [facility] [place] [address] 01/26/2022 Office Visit Hematology and Oncology Fabian Cameron MD [facility] HEMATOLOGY/[place] [address] Loan Burton APRN [facility] HEMATOLOGY/[place] [address] 01/26/2022 Infusion Hematology and Oncology 02/02/2022 Office Visit Hematology and Oncology Fabian Cameron MD [facility] HEMATOLOGY/[place] [address] 02/02/2022 Infusion Hematology and Oncology 02/22/2022 Telephone Hematology and Oncology Siena Lloyd RD [facility] DRIVE [place] [address] Scheduled Procedures Name Priority Associated Diagnoses Date/Time EGD, UPPER GI ENDOSCOPY EGD with stent vs 2021 12:00 PM EDT cryotherapy. documented as of this encounter Procedures Procedure Name Priority Date/Time Associated Diagnosis Comme nts LAB SCAN 07/04/2018 12:00 AM Results for this EST procedure are i n the results section . documented in this encounter Results SCAN DOC: LAB (07/04/2018 12:00 AM EST) Narrative 07/04/2018 12:00 AM EST This result has an attachment that is no t available. Ordered by an unspecified provider. Scanning Provider MEDIA MGR SCAN EXT ORDR/RSLT documented in this encounter Visit Diagnoses Diagnosis Primary lung adenocarcinoma, right documented in this encounter Care Teams Engine Repairer Service Relationship Specialty Start Date End Date Farzaneh Winkler, SQUIRREL MAN PCP - General General Internal Medicine 06/05/[address] [place] [address] documented as of this encounter
--- OUTSIDE RECORDS SUMMARY | 2022-01-19 07:38 | XMS_ITS | Encounter Summary ---
:1950 Author Organization [facility] [place] [address] Care Team Providers Name Role Phone JoeFarzaneh florence Daria FRANCISCO Primary Care Provider Encounter Details Date Type Department Care Team Description 05/22/2019 Orders Only Hematology and Oncology at TnFabian dobbs MD [facility] Luz bolivar HEMATOLOGY/[place] [address] DEPT. [phone] [place], [place] [address] (Wo rk) Social History Tobacco [...] [facility] HEMATOLOGY/[place] [address] 01/19/2022 Infusion Hematology and Oncology Canc eled (F-ARIA CANCEL) 01/25/2022 Hospital Gastroenterology Jose Clark MD [facility] [place] [address] 01/25/2022 Surgery Gastroenterology Jose Clark EGD, LOLA Yates MD ENDOSCOPY [facility] [place] [address] 01/26/2022 Office Visit Hematology and Oncology Fabian Cameron MD [facility] DR HEMATOLOGY/[place] [address] Loan Burton APRN [facility] HEMATOLOGY/[place] [address] 01/26/2022 Infusion Hematology and Oncology 02/02/2022 Office Visit Hematology and Oncology Fabian Cameron MD [facility] HEMATOLOGY/[place] [address] 02/02/2022 Infusion Hematology and Oncology 02/22/2022 Telephone Hematology and Oncology Siena Lloyd RD [facility] DR[place] [address] Scheduled Procedures Name Priority Associated Diagnoses Date/Time EGD, UPPER GI ENDOSCOPY EGD with stent vs 2021 12:00 PM EDT cryotherapy. documented as of this encounter Visit Diagnoses Not on filedocumented in this encounter Care Teams Cement Production 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 Relationship Specialty Start Date End Date Farzaneh Winkler, SAUTE CHEF PCP - General General Internal Medicine 06/05/[address] [place] [phone] documented as of this encounter
--- OUTSIDE RECORDS SUMMARY | 2022-01-19 07:38 | XMS_ITS | Encounter Summary ---
:1950 Author Organization [facility] [place] [address] Care Team Providers Name Role Phone Farzaneh Winkler Daria FRANCISCO Primary Care Provider Encounter Details Date Type Department Care Team Description 06/06/2018 Office Visit Hematology/Oncology Cadence Cameron MD Primary lung adenocarcinoma, right; at [facility] Hypothyroidism due to drugs; [address] [place] [address] DR Morbid obesity [place], [place] HEMATOLOGY/ONCOLO [address] [place] DEPT. [phone] [place] [id number] Social History Tobacco Use Types Packs/Day Years [...] Sign Reading Time Taken Comments Blood Pressure 128/57 06/06/2018 9:48 AM EST Pulse 96 06/06/2018 9:48 AM EST Temperature 36.8 ??C (98.2 ??F) 06/06/2018 9:48 AM EST Respiratory Rate 20 06/06/2018 9:48 AM EST Oxygen Saturation 97% 06/06/2018 9:48 AM EST Inhaled Oxygen Concentration - - Weight 144.4 kg (318 lb 6.4 oz) 06/06/2018 9:48 AM EST Height 180 cm (5' 10.87) 06/06/2018 9:48 AM EST copied Body Mass Index 44.58 06/06/2018 9:48 AM EST documented in this encounter Progress Notes Fabian Cameron MD - 06/06/2018 9:30 AM EST Subjective: Patient ID: Alin Meek is a 67 y.o. male. HPI Stage IIIa adenocarcinoma of right lung 06/03 Not a surgical candidate EGFR/ALK negative PDL 1+ at 90% Definitive RT with carbo docetaxel 07/12-08/21 achieved a CO radiographically Durvalumab times 1 year initiated 09/[address] scan 04/04 stable with CO The patient returns to the [facility] in follow-up for his ongoing immunotherapy for his stage IIIa lung cancer. He had a radiographic response to initial treatment and has remained stable over thelast 6 months of immunotherapy. He has been tolerating immunotherapy without signs of toxicity. No diarrhea. He still is short of breath. He does have significant rheumatoid arthritis and recently started on methotrexate under the direction of his rheumatoid team at the [facility] in [place]. Generally feels well with no new events. Patient Active Problem List Diagnosis Code ??? 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 Benign essential hypertension I10 ??? Chronic obstructive lung disease J44.9 ??? Morbid obesity E66.01 ??? Primary malignant neoplasm of lung C34.90 ??? Pain in joint M25.50 ??? Low back pain M54.5 Current Outpatient Medications: ??? sertraline (ZOLOFT) 50 mg Tablet, TAKE ONE TABLET BY MOUTH EVERY DAY FOR DEPRESSION OR ANXIETY, Disp: , Rfl: ??? prochlorperazine (COMPAZINE) 10 mg Tablet, TAKE ONE TABLET BY MOUTH EVERY SIX HOURS NEEDED FOR NAUSEA/VOMITING, Disp: , Rfl: ??? budesonide-formoterol (SYMBICORT) 160-4.5 mcg/actuation HFA Aerosol Inhaler, INHALE 2 PUFFS BY MOUTH TWICE A DAY, Disp: , Rfl: ??? gabapentin (NEURONTIN) 300 mg Capsule, Take 300 mg by mouth 2 times daily., Disp: , Rfl: ??? loperamide (IMODIUM A-D) 2 mg Capsule, Take 2 mg by mouth 4 times daily as needed for Diarrhea.,Disp: , Rfl: ??? omeprazole (PRILOSEC) 40 mg [...] regular rhythm and normal heart sounds. Pulmonary/Chest: Breath sounds normal. He has no wheezes. Abdominal: Soft. Bowel sounds are normal. There is no splenomegaly. There is no tenderness. Musculoskeletal: He exhibits no edema. Lymphadenopathy: He has no cervical adenopathy. He has no axillary adenopathy. Right: No inguinal adenopathy present. Left: No inguinal adenopathy present. Neurological: He is oriented to person, place, and time. White count 10.2, hemoglobin 13.0, platelets 316 Creatinine 1.4, alk phos 90, TSH 1.64 Assessment and Plan: 67-year-old man who presented with a stage IIIa [...] he continue with every 2 week infusions. We will have him return in 2 weeks and 4 weeks for labs and infusion only. In 6 weeks we will plan to see him with another clinic visit and labs in infusion. I would recommend holding off until he completes his year of therapy in August to repeat his CT scansand then we can embark on observation. documented in this encounter Plan of Treatment Upcoming Encounters Date Type Specialty Care Team Description 01/19/2022 Office Visit Hematology and Oncology Loan Burton APRN [facility] HEMATOLOGY/[place] [address] 01/19/2022 Infusion Hematology and Oncology Canc eled (F-ARIA CANCEL) 01/25/2022 Hospital Gastroenterology Jose Clark MD [facility] [place] [address] 01/25/2022 Surgery Gastroenterology Jose Clark UPPE R GI R, MD ENDOSCOPY [facility] [place] [address] 01/26/2022 Office Visit Hematology and Oncology Fabian Cameron MD [facility] HEMATOLOGY/[place] [address] Loan Burton APRN [facility] HEMATOLOGY/[place] [address] 01/26/2022 Infusion Hematology and Oncology 02/02/2022 Office Visit Hematology and Oncology Fabian Cameron MD [facility] HEMATOLOGY/[place] [address] 02/02/2022 Infusion Hematology and Oncology 02/22/2022 Telephone Hematology and Oncology Siena Lloyd RD [facility] DRIVE [place] [address] Scheduled Procedures Name Priority Associated Diagnoses Date/Time EGD, UPPER GI ENDOSCOPY EGD with stent vs 2021 12:00 PM EDT cryotherapy. documented as of this encounter Visit Diagnoses Diagnosis Primary lung adenocarcinoma, right Hypothyroidism due to drugs Other iatrogenic hypothyroidism Morbid obesity documented in this encounter Care Teams Housekeeper Home Relationship Specialty Start Date End Date Farzaneh Winkler APRN PCP - General General Internal Medicine 06/05/[address] [place] [address] documented as of this encounter
--- OUTSIDE RECORDS SUMMARY | 2022-01-19 07:38 | XMS_ITS | Encounter Summary ---
:1950 Author Organization [facility] [place] [address] Care Team Providers Name Role Phone Farzaneh Winkler Daria FRANCISCO Primary Care Provider Encounter Details Date Type Department Care Team Description 09/05/2018 Office Visit Hematology/Oncology Cadence Cameron MD Primary lung at [facility] adenocarcinoma, right [address] [place], [place] HEMATOLOGY/ONCOLOG [address] Y DEPT. [phone] [place] [id number] Social History Tobacco Use Types Packs/Day Years [...] Sign Reading Time Taken Comments Blood Pressure 144/76 09/05/2018 11:26 AM EDT Pulse 93 09/05/2018 11:26 AM EDT Temperature 36.4 ??C (97.5 ??F) 09/05/2018 11:26 AM EDT Respiratory Rate 22 09/05/2018 11:26 AM EDT Oxygen Saturation 98% 09/05/2018 11:26 AM EDT Inhaled Oxygen Concentration - - Weight 145.2 kg (320 lb) 09/05/2018 11:26 AM EDT Height 180 cm (5' 10.87) 09/05/2018 11:26 AM EDT sandeep stephenson Body Mass Index 44.8 09/05/2018 11:26 AM EDT documented in this encounter Progress Notes Fabian Cameron MD - 09/05/2018 11:30 AM EDT Images from the original note were not included. Subjective: Patient ID: Alin Meek is a 68 y.o. male. HPI Stage IIIa adenocarcinoma of right lung 06/03 Not a surgical candidate EGFR/ALK negative PDL 1+ at 90% Definitive RT with carbo docetaxel 07/12-08/21 achieved a MD radiographically Durvalumab times 1 year completed 09/04/[address] therapy Last CT scan 09/04/18 stable with MD The patient returns to the [facility] in follow-up for his ongoing immunotherapy for his stage IIIa lung cancer. He had a radiographic response to initial treatment and has remained stable with ongoing immunotherapy. He has been tolerating immunotherapy without signs of toxicity. No diarrhea. He still is short of breath but no major change. No fevers. No hemoptysis. He is here for his last dose of immunotherapy. Patient Active Problem List Diagnosis Code ??? [...] to person, place, and time. White count 11.1, hemoglobin 12.5, platelets 324 Creatinine 1.[address] scan of the chest from 09/02/18 No change in appearance of the CT of the chest Assessment and Plan: 68-year-old man who presented with a stage IIIa adenocarcinoma of the right lung. He was not a surgical candidate. He received definitive radiation with concurrent chemotherapy completing that in August2017. He achieved a partial remission by radiographic CT scan. Subsequently he was initiated on every 2 week immunotherapy with Durvalumab. Today will be his last planned dose of this treatment. At this point he will be followed up per NCC and guidelines. We will plan to see him every [address] scan every 3-6 months over the next 4 years or so. We did talk about his port. He does not want to have it removed yet in case he needs to use it with recurrent disease. He will get it flushed once a month. See NCC and guidelines below. We will see him back in [address] scan of the chest and laboratory studies. NCCN Guidelines: documented in this encounter Plan of Treatment Upcoming Encounters Date Type Specialty Care Team Description 01/19/2022 Office Visit Hematology and Oncology Loan Burton, NOLAN [facility] HEMATOLOGY/[place] [address] 01/19/2022 Infusion Hematology and Oncology Canc eled (F-ARIA CANCEL) 01/25/2022 Hospital Gastroenterology Jose Clark MD [facility] [place] [address] 01/25/2022 Surgery Gastroenterology Jose Clark UPPE R GI R, MD ENDOSCOPY [facility] [place] [address] 01/26/2022 Office Visit Hematology and Oncology Fabian Cameron MD [facility] DR HEMATOLOGY/[place] [address] Loan Burton, NOLAN [facility] HEMATOLOGY/[place] [address] 01/26/2022 Infusion Hematology and Oncology 02/02/2022 Office Visit Hematology and Oncology Fabian Cameron MD [facility] HEMATOLOGY/[place] [address] 02/02/2022 Infusion Hematology and Oncology 02/22/2022 Telephone Hematology and Oncology Siena Lloyd RD [facility] [address]IVE [place] [address] Scheduled Procedures Name Priority Associated Diagnoses Date/Time EGD, UPPER GI ENDOSCOPY EGD with stent vs 2021 12:00 PM EDT cryotherapy. documented as of this encounter Visit Diagnoses Diagnosis Primary lung adenocarcinoma, right documented in this encounter Care Teams Visual Education Director Relationship Specialty Start Date End Date Farzaneh Winkler, NOLAN PCP - General General Internal Medicine 06/05/[address] [place] [address] documented as of this encounter
--- OUTSIDE RECORDS SUMMARY | 2022-01-19 07:38 | XMS_ITS | Encounter Summary ---
:1950 Author Organization [facility] [address] Care Team Providers Name Role Phone PetersonRamónrubio Huff BOAT DRIVER Primary Care Provider Encounter Details Date Type Department Care Team Description 05/10/2018 Office Visit Hematology/Oncology Julee Pratt, Prim pilar lung at [facility] BOAT DRIVER adenocarcinoma, right [address] [place], [place] [address] [place] [phone] (Wo rk) Social History Tobacco Use Types [...] Sign Reading Time Taken Comments Blood Pressure 129/71 05/10/2018 10:23 AM EST Pulse 91 05/10/2018 9:47 AM EST Temperature 36.4 ??C (97.5 ??F) 05/10/2018 9:47 AM EST Respiratory Rate 24 05/10/2018 9:47 AM EST Oxygen Saturation 97% 05/10/2018 9:47 AM EST Inhaled Oxygen Concentration - - Weight 142.9 kg (315 lb) 05/10/2018 9:47 AM EST Height - - Body Mass Index 44.1 04/25/2018 1:25 PM EST documented in this encounter Progress Notes Julee Pratt, BOAT DRIVER - 05/10/2018 9:45 AM EST Diagnosis: 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 CT scan of the chest done at [facility] 01/15/18 demonstrates that the mass is gone down further now down to 2.1 cm. The lymph nodes are all less than 1 cm. He continues to have 2 stable masses on the right adrenal that may not be metastatic tumor and does have now post radiation a moderate asymptomatic right effusion. Subjective: Alin comes in today for his 18th infusion of durvalumab. He continues having lower back pain which is chronic for him. It has not changed. He has no weakness, numbness or tingling in his hands or feet, or bowel or bladder changes. Denies any changes in his breathing. He has an appointment next week with his PCP and we discussed the possibility of physical therapy. He will discuss it with her when he sees her. Past medical history and social history are [...] Onset ??? Cancer Brother throat Social History Socioeconomic History ??? Marital status: Unknown Spouse name: Stephanie ??? Number of children: Not on file ??? Years of education: Not on file ??? Highest education level: Not on file Social Needs ??? Financial resource strain: Not on file ??? Food insecurity - worry: Not on file ??? Food insecurity - inability: Not on file ??? Transportation needs - medical: Not on file ??? Transportation needs - non-medical: Not on file Occupational History ??? Occupation: [employer] Comment: for 8 months ??? 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 Smoking status: Former Smoker Packs/day: 2.00 Types: Cigarettes Start date: 1969 Last attempt to quit: 2016 Years since quittin.8 ??? Smokeless tobacco: Former User Types: Chew Quit date: 1974 ??? Tobacco comment: 2015 quit Substance and Sexual Activity ??? Alcohol use: No Comment: usd to drink heavily ( 12 pck/day) quit 2015 ??? Drug use: No ??? Sexual activity: Not on file Other Topics Concern ??? Not on file Social History Narrative ??? Not on file Review of Systems Constitutional: Negative for fever, [...] Neurological: Negative. Hematological: Negative for adenopathy. BP 129/71 Pulse 91 Temp 36.4 ??C (97.5 ??F) (Oral) Resp 24 Wt (!) 142.9 kg (315 lb) SpO2 97% BMI 44.10 kg/m?? Wt Readings from Last 3 Encounters: 05/10/18 (!) 142.9 kg (315 lb) 04/25/18 (!) 144.2 kg (318 lb) 04/11/18 (!) 143.3 kg (316 lb) Physical Exam Constitutional: He is oriented [...] regular rhythm. Pulmonary/Chest: Effort normal. He has decreased breath sounds (mild decrease). Abdominal: Soft. There is no guarding. Exam limited by obesity Musculoskeletal: Normal range of motion. He exhibits edema (mild LE bilat). Lymphadenopathy: He has no cervical adenopathy. He has no axillary adenopathy. Right: No supraclavicular adenopathy present. Left: No supraclavicular adenopathy present. Neurological: He is alert and oriented to person, place, and time. Skin: Skin is warm and dry. Psychiatric: He has a normal mood and affect. His behavior is normal. Labs: 05/10/2018 CBC: WBC 9.83 hemoglobin 12.9 platelets 339 CMP: Sodium 133 potassium 4.3 BUN 21 creatinine 1.54 glucose 123 calcium 8.9 total bili 0.4 AST 14 ALT 18 alk phos 85 total protein 7.9 albumin 3.2 TSH 1[address]: 04/10/2018 Impression: Stable appearance of the right perihilar mass and stable right pleural effusion. No metastatic disease is identified in the abdomen or pelvis. ONCBCN ONCOLOGY (AMB) 04/25/2018 Day, Cycle Day 1, Cycle 17 CARBOplatin (PARAPLATIN) IV DOCEtaxel (TAXOTERE) IV durvalumab (Imfinzi) IV 1,360 mg Assessment/plan: 1. NSCLC s/p carbo/docetaxel with concurrent XRT completed 08/22/17: Alin is continuing to do well with the durvalumab. Breathing is stable. Plan for C18 today. Creatinine up today- we can continue this treatment until it reaches >1.5x upper limit of normal = 1.2. Previous restaging CT demonstrated stable disease. He continues to be asymptomatic from treatment. Plan to restage in 3mo which would be at the end of June. 2. Pleural effusion: post XRT treatment - will follow. May resolve on its own but is stable for now. 3. Decreased renal fx: Cr/BUN elevated-in discussion with him it appears he has been drinking quite a bit of caffeinated tea and soda. I have asked him to stop that and switch to decaf which will hopefully bring his creatinine down and maintain his hydration status somewhat better. Julee Pratt, MSN, PACKAGING CLERK, AOCN Hematology/Oncology Nurse Practitioner [place], [place] [phone] documented in this encounter Plan of Treatment Upcoming Encounters Date Type Specialty Care Team Description 01/19/2022 Office Visit Hematology and Oncology Loan Burton APRN [facility] HEMATOLOGY/[place] [address] 01/19/2022 Infusion Hematology and Oncology Canc eled (F-ARIA CANCEL) 01/25/2022 Hospital Gastroenterology Jose Clark MD [facility] [place]OENTER[place] [address] 01/25/2022 Surgery Gastroenterology Jose Clark UPPE R GI R, MD ENDOSCOPY [facility] DR GASTROENTEROLOG [place] [address] 01/26/2022 Office Visit Hematology and Oncology Fabian Cameron MD [facility] HEMATOLOGY/[place] [address] Loan Burton, NOLAN [facility] HEMATOLOGY/[place] [address] 01/26/2022 Infusion Hematology and Oncology 02/02/2022 Office Visit Hematology and Oncology Fabian Cameron MD [facility] DR HEMATOLOGY/[place] [address] 02/02/2022 Infusion Hematology and Oncology 02/22/2022 Telephone Hematology and Oncology Siena Lloyd RD [facility] DRIVE HEMATOLOGY [place] [address] Scheduled Procedures Name Priority Associated Diagnoses Date/Time EGD, UPPER GI ENDOSCOPY EGD with stent vs 2021 12:00 PM EDT cryotherapy. documented as of this encounter Visit Diagnoses Diagnosis Primary lung adenocarcinoma, right documented in this encounter Care Teams Tandem Mill Roller Relationship Specialty Start Date End Date Farzaneh Winkler, BOAT DRIVER PCP - General General Internal Medicine 06/05/[address] [place] [address] documented as of this encounter
--- OUTSIDE RECORDS SUMMARY | 2022-01-19 07:38 | XMS_ITS | Encounter Summary ---
:1950 Author Organization [facility] [place] [address] Care Team Providers Name Role Phone Farzaneh Winkler Daria FRANCISCO Primary Care Provider Encounter Details Date Type Department Care Team Description 11/28/2018 Office Visit Hematology/Oncology Cadence Cameron MD Primary lung at [facility] adenocarcinoma, right [address] [place], [place] HEMATOLOGY/ONCOLOG [address] Y DEPT. [phone] [place] [id number] Social History Tobacco Use Types Packs/Day Years [...] Sign Reading Time Taken Comments Blood Pressure 142/71 11/28/2018 2:26 PM EDT Pulse 123 11/28/2018 2:26 PM irr, after re st down EDT to 93 Temperature 36.7 ??C (98.1 ??F) 11/28/2018 2:26 PM EDT Respiratory Rate 22 11/28/2018 2:26 PM EDT Oxygen Saturation 97% 11/28/2018 2:26 PM EDT Inhaled Oxygen - - Concentration Weight 142.4 kg (314 lb) 11/28/2018 2:26 PM EDT Height 180 cm (5' 10.87) 11/28/2018 2:26 PM copied EDT Body Mass Index 43.96 11/28/2018 2:26 PM EDT documented in this encounter Progress Notes Fabian Cameron MD - 11/28/2018 2:30 PM EDT Images from the original note were not included. Subjective: Patient ID: Alin Meek is a 68 y.o. male. HPI Stage IIIa adenocarcinoma of right lung 06/03 Not a surgical candidate EGFR/ALK negative PDL 1+ at 90% Definitive RT with carbo docetaxel 07/12-08/21 achieved a IL radiographically Durvalumab times 1 year completed 09/04/[address] as [address] therapy Last CT scan 11/19/18 stable with IL The patient returns to the [facility] in follow-up for his stage IIIa lung cancer. He is now about a year and a half out from a diagnosis of a stage IIIa adenocarcinoma of the right lung. He was treated with combined modality therapy and then finished a year of adjuvant immunotherapy. Overall doing about the same. He has started methotrexate for his arthritis and psoriasis. Still getting some GI follow-up. Most of this is being done through the [place] hospital. He has not had a change in his cough. No weight loss. He has not noted any lumps or bumps. [place]ters. Patient Active Problem List Diagnosis Code ??? [...] by mouth daily., Disp: , Rfl: ??? gabapentin (NEURONTIN) 300 [...] to person, place, and time. White count 11.5, hemoglobin 13.3, platelets 307 Creatinine 1.[address] scan of the chest from 11/19/18 No change in appearance of the CT [...] We will continue to follow him. He will return in 3 months for labs and physical exam. We will plan to repeat her CAT scan in about 6 months which will be his 2- year anniversary from his diagnosis. He has more problems I would be happy to see him sooner. See NCCN guidelines below. NCCN Guidelines: documented in this encounter Plan of Treatment Upcoming Encounters Date Type Specialty Care Team Description 01/19/2022 Office Visit Hematology and Oncology Loan Burton, NOLAN [facility] HEMATOLOGY/[place] [address] 01/19/2022 Infusion Hematology and Oncology Canc eled (F-ARIA CANCEL) 01/25/2022 Hospital Gastroenterology Jose Clark MD [facility] [place] [address] 01/25/2022 Surgery Gastroenterology Jose Clark UPPE R GI R, MD ENDOSCOPY [facility] [place] [address] 01/26/2022 Office Visit Hematology and Oncology Fabian Cameron MD [facility] DR HEMATOLOGY/[place] [address] Loan Burton, QA ENGINEER [facility] HEMATOLOGY/[place] [address] 01/26/2022 Infusion Hematology and Oncology 02/02/2022 Office Visit Hematology and Oncology Fabian Cameron MD [facility] HEMATOLOGY/[place] [address] 02/02/2022 Infusion Hematology and Oncology 02/22/2022 Telephone Hematology and Oncology Siena Lloyd RD [facility] DRIVE [place] [address] Scheduled Procedures Name Priority Associated Diagnoses Date/Time EGD, UPPER GI ENDOSCOPY EGD with stent vs 2021 12:00 PM EDT cryotherapy. documented as of this encounter Procedures Procedure Name Priority Date/Time Associated Diagnosis Comme nts CT SCAN (SCAN) 11/19/2018 12:00 AM Result s for this EDT procedure are i n the results section . documented in this encounter Results SCAN DOC: CT SCAN (11/19/2018 12:00 AM EDT) Narrative 11/19/2018 12:00 AM EDT This result has an attachment that is no t available. Ordered by an unspecified provider. Scanning Provider MEDIA MGR SCAN EXT ORDR/RSLT documented in this encounter Visit Diagnoses Diagnosis Primary lung adenocarcinoma, right documented in this encounter Care Teams Kiln Charger Relationship Specialty Start Date End Date Farzaneh Winkler, QA ENGINEER PCP - General General Internal Medicine 06/05/[address] [place] [id number] documented as of this encounter
--- OUTSIDE RECORDS SUMMARY | 2022-01-19 07:38 | XMS_ITS | Encounter Summary ---
:1950 Author Organization [facility] [address] Care Team Providers Name Role Phone Farzaneh Winkler APRN Primary Care Provider Reason for Visit Reason Comments Chemotherapy Durvalumab, Cycle 25, Day 1 Treatment/Therapy Plan Authorization (Routine) - Closed Specialty Diagnoses / Procedures Referred By Contact Refer red To Contact Diagnoses Primary lung adenocarcinoma, right Jonathan Bishop MD [facility] Hem Onc Infusion Procedures [place] CHEMOTHERAPY DRUG IMFINZI (DURVALUMAB) [address] [place] [address] 8[address] [place] [address] Phone: Fax: Referral ID Status Reason Start Date Expiration Date Visits Requ ested Visits Authorized [id number] Closed 08/21/2017 09/07/2023 50 50 Encounter Details Date Type Department Care Team Description 08/22/2018 Infusion Hematology Oncology at [facility] lung adenocarcinoma, [facility] right [address] [place] [address] [phone] Social History Tobacco Use Types [...] Sign Reading Time Taken Comments Blood Pressure 121/74 08/22/2018 12:40 PM EST Pulse 78 08/22/2018 12:40 PM EST Temperature 36.4 ??C (97.5 ??F) 08/22/2018 12:40 PM EST Respiratory Rate 20 08/22/2018 12:40 PM EST Oxygen Saturation 98% 08/22/2018 12:40 PM EST Inhaled Oxygen Concentration - - Weight 143.2 kg (315 lb 9.6 oz) 08/22/2018 12:40 PM EST Height 180 cm (5' 10.87) 08/22/2018 12:40 PM EST Body Mass Index 44.18 08/22/2018 12:40 PM EST documented in this encounter Progress Notes Javon Chery RN - 08/22/2018 1:00 PM EST INFUSION THERAPY ADMINISTRATION NOTES CYCLE #25, Day 1 REASON FOR VISIT: Durvalumab infusion [...] Office Visit Hematology and Oncology Loan Burton, EMERGENCY DEPARTMENT DIRECTOR [facility] HEMATOLOGY/[place] [address] 01/19/2022 Infusion Hematology and Oncology Canc eled (F-RONAKA CANCEL) 01/25/2022 Hospital Gastroenterology Jose Clark MD [facility] [place] [address] 01/25/2022 Surgery Gastroenterology Jose Clark EGD, LOLA Yates MD ENDOSCOPY [facility] [place] [address] 01/26/2022 Office Visit Hematology and Oncology Fabian Cameron MD [facility] DR HEMATOLOGY/[place] [address] Loan Burton APRN [facility] HEMATOLOGY/[place] [address] 01/26/2022 Infusion Hematology and Oncology 02/02/2022 Office Visit Hematology and Oncology Fabian Cameron MD [facility] DR HEMATOLOGY/[place] [address] 02/02/2022 Infusion Hematology and Oncology 02/22/2022 Telephone Hematology and Oncology Siena Lloyd, MUKUND [facility] DR[place] [address] Scheduled Procedures Name Priority Associated Diagnoses Date/Time EGD, UPPER GI ENDOSCOPY EGD with stent vs 2021 12:00 PM EDT cryotherapy. documented as of this encounter Visit Diagnoses Diagnosis Primary lung adenocarcinoma, right documented in this encounter Administered Medications Inactive Administered Medications - up to 3 most recent administrations Medication Order MAR Action Action Date Dose Rate Site durvalumab (Imfinzi) 1,360 New Bag 08/22/2018 1:47 PM EST 1,360 mg 277.2 mL/hr mg in sodium chloride 0.9% 277.2 mL infusion 1,360 mg, Intravenous, ONCE, 1 dose, On Stephanie 08/22/18 at 1415, Administer over 60 Minutes, No dose adjustments., Dose Ordered = 1433mg (10 mg/kg). Pharmacist rounded dose per procedure. heparin, porcine 100 unit/mL flush 500 Given 08/22/2018 2:55 PM EST 500 Units Units 500 Units, Intravenous, ONCE PRN, Starting on Stephanie 08/22/18 at 1252, Until Stephanie 08/22/18 at 1656, Line Care, Refer to Intravenous (IV) Procedure: Accessing Implanted Vascular Access Devices (654) procedure and/or Intravenous (IV) Job Aid: Adult Flushing & Catheter Care (3940) job aid for additional information regarding guidelines and administration., Routine sodium chloride 0.9 % flush 5-20 mL Given 08/22/2018 2:55 PM EST 20 mLs 5-20 mL, Intravenous, EVERY 1 MIN PRN, Starting on Stephanie 08/22/18 at 1252, Until Stephanie 08/22/18 at 1656, Line Care, Flush pertains to all indwelling lines. Flush per protocol found in the job aid using the link provided on this medication record. Refer to Intravenous (IV) Job Aid: Adult Flushing & Catheter Care (5871) job aid for additional information regarding guidelines and administration., Routine documented in this encounter Care Teams Inspector Precision Assembly Relationship Specialty Start Date End Date Farzaneh Winkler APRN PCP - General General Internal Medicine 06/05/[address] [place] [address] documented as of this encounter
--- OUTSIDE RECORDS SUMMARY | 2022-01-19 07:38 | XMS_ITS | Encounter Summary ---
:1950 Author Organization [facility] [place] [address] Care Team Providers Name Role Phone PetersonRamónrubio Huff APRN Primary Care Provider Encounter Details Date Type Department Care Team Description 07/18/2018 Ancillary Procedure [facility] [place] [facility] HEMATOLOGY[facility] [address] DEPT. [phone] [place], [place] [address] (Wo rk) Social History Tobacco [...] Visit Hematology and Oncology Loan Burton APRN [facility] HEMATOLOGY/[place] [address] 01/19/2022 Infusion Hematology and Oncology Canc eled (F-ARIA CANCEL) 01/25/2022 Hospital Gastroenterology Jose Clark MD [facility] [place] [address] 01/25/2022 Surgery Gastroenterology Jose Clark, LOLA Yates MD ENDOSCOPY [facility] [place] [address] 01/26/2022 Office Visit Hematology and Oncology Fabian Cameron MD [facility] DR HEMATOLOGY/[place] [address] Loan Burton APRN [facility] HEMATOLOGY/[place] [address] 01/26/2022 Infusion Hematology and Oncology 02/02/2022 Office Visit Hematology and Oncology Fabian Cameron MD [facility] HEMATOLOGY/[place] [address] 02/02/2022 Infusion Hematology and Oncology 02/22/2022 Telephone Hematology and Oncology Siena Lloyd RD [facility] DRIVE [place] [address] Scheduled Procedures Name Priority Associated Diagnoses Date/Time EGD, UPPER GI ENDOSCOPY EGD with stent vs 2021 12:00 PM EDT cryotherapy. documented as of this encounter Procedures Procedure Name Priority Date/Time Associated Diagnosis Comme nts FILM LIBRARY Routine 07/18/2018 12:00 AM Results for this STORAGE ONLY DX EST procedure ar e in CHEST the results section. documented in this encounter Results Film Library- Storage Only DX Chest (07/18/2018 12:00 AM EST) Specimen (Source) Anatomical Location Collection Method / Collectio n Time Received Time / Laterality Volume Narrative [facility] - 07/19/2018 7:37 AM EST This exam is for storage only and is aut o-finalizing. Fabian Cameron MD IMG FILM LIBRARY ORDERABLES Performing Organization Address City/State/ZIP Code Phon e Number [facility] [place], [place] documented in this encounter Visit Diagnoses Not on filedocumented in this encounter Care Teams Investment Associate Relationship Specialty Start Date End Date Farzaneh Winkler, NOLAN PCP - General General Internal Medicine 06/05/[address] [place] [address] documented as of this encounter
--- OUTSIDE RECORDS SUMMARY | 2022-01-19 07:38 | XMS_ITS | Encounter Summary ---
:1950 Author Organization [facility] [place] [address] Care Team Providers Name Role Phone Farzaneh Winkler APRN Primary Care Provider Reason for Visit Reason Comments Chemotherapy Cycle 20 Day 1 Treatment/Therapy Plan Authorization (Routine) - Closed Specialty Diagnoses / Procedures Referred By Contact Refer red To Contact Diagnoses Primary lung adenocarcinoma, right Jonathan Bishop MD [facility] Hem Onc Infusion Procedures [place] CHEMOTHERAPY DRUG IMFINZI (DURVALUMAB) [address] [place] [address] [address] [place] [address] Phone: Fax: Referral ID Status Reason Start Date Expiration Date Visits Requ ested Visits Authorized [id number] Closed 08/21/2017 09/07/2023 50 50 Encounter Details Date Type Department Care Team Description 06/06/2018 Infusion Hematology Oncology at [facility] lung [facility] right [address] [place], [place] [id number] [phone] Social History Tobacco Use Types Packs/Day [...] documented as of this encounter Progress Notes Dina Miranda RN - 06/06/2018 10:00 AM EST INFUSION THERAPY ADMINISTRATION NOTES CYCLE #20, Day 1 REASON FOR VISIT: Durvalumab infusion SUBJECTIVE: Pierre offers no complaints. OBJECTIVE LAB DATA: WNL, reviewed with provider in clinic IV ACCESS: Port already accessed by OSH for lab draw; dressing CDI, flushes easily with no blood return noted.Cathflo instilled with 45 min dwell time.Good blood return after cath kim. Port flushed with 20cc NS and 500 units Heparin then de-accessed after completion of treatment. Pre administration: Chemotherapy orders independently verified for drug name, route, and dosage per patient's height, weight and BSA by DINA MIRANDA RN and On-site pharmacist. REACTIONS (DESCRIPTION, TIME, INTERVENTION AND EFFECTIVENESS) none ASSESSMENT: Alin was awake, alert and tolerated treatment well. PLAN: Return to clinic as schedualed. documented in this encounter Plan of Treatment Upcoming Encounters Date Type Specialty Care Team Description 01/19/2022 Office Visit Hematology and Oncology Loan Burton APRN [facility] HEMATOLOGY/[place] [address] 01/19/2022 Infusion Hematology and Oncology Canc eled (F-ARIA CANCEL) 01/25/2022 Hospital Gastroenterology Jose Clark MD [facility] [place] [address] 01/25/2022 Surgery Gastroenterology Jose Clark UPPE R GI R, MD ENDOSCOPY [facility] [place] [address] 01/26/2022 Office Visit Hematology and Oncology Fabian Cameron MD [facility] HEMATOLOGY/[place] [address] Loan Burton APRN [facility] HEMATOLOGY/[place] [address] 01/26/2022 Infusion Hematology and Oncology 02/02/2022 Office Visit Hematology and Oncology Fabian Cameron MD [facility] HEMATOLOGY/[place] [address] 02/02/2022 Infusion Hematology and Oncology 02/22/2022 Telephone Hematology and Oncology Siena Lloyd RD [facility] DRIVE [place] [address] Scheduled Procedures Name Priority Associated Diagnoses Date/Time EGD, UPPER GI ENDOSCOPY EGD with stent vs 2021 12:00 PM EDT cryotherapy. documented as of this encounter Visit Diagnoses Diagnosis Primary lung adenocarcinoma, right documented in this encounter Administered Medications Inactive Administered Medications - up to 3 most recent administrations Medication Order MAR Action Action Date Dose Rate Site alteplase (CATHFLO) injection 2 mg Given 06/06/2018 10:30 AM EST 2 mg 2 mg, Intravenous, ONCE PRN, Starting on Stephanie 06/06/18 at 1026, Until Stephanie 06/06/18 at 1726, Line Occlusion, Refer to Cathflo Activase (Alteplase) Administration policy for additional information regarding guidelines and administration., Routine durvalumab (Imfinzi) 1,360 mg New Bag 06/06/2018 12:24 PM EST 1,360 mg 277.2 mL/hr in sodium chloride 0.9% 277.2 mL infusion 1,360 mg, Intravenous, ONCE, 1 dose, On Stephanie 06/06/18 at 1230, Administer over 60 Minutes, No dose adjustments., Dose Ordered = 1433 mg (10 mg/kg). Pharmacist rounded dose per procedure. documented in this encounter Care Teams Wide Area Network Systems Administrator Relationship Specialty Start Date End Date Farzaneh Winkler, SENIOR TECHNICAL SUPPORT ENGINEER PCP - General General Internal Medicine 06/05/[address] [place] [address] documented as of this encounter
--- OUTSIDE RECORDS SUMMARY | 2022-01-19 07:38 | XMS_ITS | Encounter Summary ---
:1950 Author Organization [facility] [address] Care Team Providers Name Role Phone Farzaneh Winkler APRN Primary Care Provider Reason for Visit Reason Comments Chemotherapy Cycle 23 Day 1 Treatment/Therapy Plan Authorization (Routine) - Closed Specialty Diagnoses / Procedures Referred By Contact Refer red To Contact Diagnoses Primary lung adenocarcinoma, right Jonathan Bishop MD [facility] Hem Onc Infusion Procedures [place] CHEMOTHERAPY DRUG IMFINZI (DURVALUMAB) [address] [place] [address] [address] [place] [address] Phone: Fax: Referral ID Status Reason Start Date Expiration Date Visits Requ ested Visits Authorized [id number] Closed 08/21/2017 09/07/2023 50 50 Encounter Details Date Type Department Care Team Description 07/18/2018 [facility] [address] [place], [place] [phone] Social History Tobacco Use Types Packs/Day [...] encounter Progress Notes Dina Miranda RN - 07/18/2018 11:00 AM EST INFUSION THERAPY ADMINISTRATION NOTES CYCLE #23, Day 1 REASON FOR VISIT: Durvalumab infusion [...] [facility] [address] 01/19/2022 Infusion Hematology and Oncology Canc eled (F-ARIA CANCEL) 01/25/2022 Hospital Gastroenterology Jose Clark MD [facility] [place] [address] 01/25/2022 Surgery Gastroenterology Jose Clark UPPE R GI R, MD ENDOSCOPY [facility] [place] [address] 01/26/2022 Office Visit Hematology and Oncology Fabian Cameron MD [facility] HEMATOLOGY/[place] [address] Loan Burton APRN [facility] HEMATOLOGY/[place] [address] 01/26/2022 Infusion Hematology and Oncology 02/02/2022 Office Visit Hematology and Oncology Fabian Cameron MD [facility] HEMATOLOGY/[place] [address] 02/02/2022 Infusion Hematology and Oncology 02/22/2022 Telephone Hematology and Oncology Siena Lloyd RD [facility] DR[place] [address] Scheduled Procedures Name Priority Associated Diagnoses Date/Time EGD, UPPER GI ENDOSCOPY EGD with stent vs 2021 12:00 PM EDT cryotherapy. documented as of this encounter Procedures Procedure Name Priority Date/Time Associated Diagnosis Comme nts LAB SCAN 07/18/2018 12:00 AM Results for this EST procedure are i n the results section . documented in this encounter Results SCAN DOC: LAB (07/18/2018 12:00 AM EST) Narrative 07/18/2018 12:00 AM EST This result has an [...] Rate Site durvalumab (Imfinzi) 1,360 New Bag 07/18/2018 12:08 PM 1,360 mg 277.2 mL/hr mg in sodium chloride 0.9% EST 277.2 mL infusion 1,360 mg, Intravenous, ONCE, 1 dose, On Stephanie 07/18/18 at 1230, Administer over 60 Minutes, No dose adjustments. Dose Ordered = 1329 mg (10 mg/kg). Pharmacist rounded dose per procedure. heparin, porcine 100 unit/mL flush 500 Given 07/18/2018 1:09 PM EST 500 Units Units 500 Units, Intravenous, ONCE PRN, Starting on Stephanie 07/18/18 at 1111, Until Stephanie 07/18/18 at 1600, Line Care, Refer to Intravenous (IV) Procedure: Accessing Implanted Vascular Access Devices (654) procedure and/or Intravenous (IV) Job Aid: Adult Flushing & Catheter Care (8283) job aid for additional information regarding guidelines and administration., Routine sodium chloride 0.9 % flush 5-20 mL Given 07/18/2018 1:09 PM EST 20 mLs 5-20 mL, Intravenous, EVERY 1 MIN PRN, Starting on Stephanie 07/18/18 at 1111, Until Stephanie 07/18/18 at 1600, Line Care, Flush pertains to all indwelling lines. Flush per protocol found in the job aid using the link provided on this medication record. Refer to Intravenous (IV) Job Aid: Adult Flushing & Catheter Care (4886) job aid for additional information regarding guidelines and administration., Routine documented in this encounter Care Teams License Inspector Relationship Specialty Start Date End Date Farzaneh Winkler, SYSTEM SUPPORT DEVELOPER PCP - General General Internal Medicine 06/05/[address] [place] [address] documented as of this encounter
--- OUTSIDE RECORDS SUMMARY | 2022-01-19 07:38 | XMS_ITS | Encounter Summary ---
:1950 Author Organization [facility] [place] [address] Care Team Providers Name Role Phone Farzaneh Winkler APRN Primary Care Provider Encounter Details Date Type Department Care Team Description 06/27/2019 Orders Only Hematology/Oncology at [address] [phone] Social History Tobacco Use [...] Visit Hematology and Oncology Loan Burton APRN [facility] HEMATOLOGY/[place] [address] 01/19/2022 Infusion Hematology and Oncology Canc eled (F-ARIA CANCEL) 01/25/2022 Hospital Gastroenterology Jose Clark MD [facility] [place] [address] 01/25/2022 Surgery Gastroenterology Jose Clark EGD, LOLA Yates MD ENDOSCOPY [facility] DR GASTROENTER[place] [address] 01/26/2022 Office Visit Hematology and Oncology Fabian Cameron MD [facility] DR HEMATOLOGY/[place] [address] Loan Burton APRN [facility] HEMATOLOGY/[place] [address] 01/26/2022 Infusion Hematology and Oncology 02/02/2022 Office Visit Hematology and Oncology Fabian Cameron MD [facility] DR HEMATOLOGY/[place] [address] 02/02/2022 Infusion Hematology and Oncology 02/22/2022 Telephone Hematology and Oncology Siena Lloyd, MUKUND [facility] DRIVE HEMATOLOGY [place] [address] Scheduled Procedures Name Priority Associated Diagnoses Date/Time EGD, UPPER GI ENDOSCOPY EGD with stent vs 2021 12:00 PM EDT cryotherapy. documented as of this encounter Visit Diagnoses Not on filedocumented in this encounter Care Teams Intellectual Property Counsel Relationship Specialty Start Date End Date Farzaneh Winkler, BEHAVIORAL MODIFICATION ASSISTANT PCP - General General Internal Medicine 06/05/[address] [place] [address] documented as of this encounter
--- OUTSIDE RECORDS SUMMARY | 2022-01-19 07:38 | XMS_ITS | Encounter Summary ---
:1950 Author Organization [facility] Address [facility] [place] [address] Care Team Providers Name Role Phone Farzaneh Winkler APRN Primary Care Provider Encounter Details Date Type Department Care Team Description 07/18/2018 Orders Only [facility] [place] [facility] Primary lung [facility] adenocarcinoma, right [address] [facility] HEMATOLOGY/ONCOLOG [address] Y DEPT. [phone] [place], [place] [address] Social History Tobacco Use Types [...] Visit Hematology and Oncology Loan Burton APRN [facility] HEMATOLOGY/[place] [address] 01/19/2022 Infusion Hematology and Oncology Canc eled (F-ARIA CANCEL) 01/25/2022 Hospital Gastroenterology Jose Clark MD [facility] GASTROENTER[place] [address] 01/25/2022 Surgery Gastroenterology Jose Clark EGD, LOLA Yates MD ENDOSCOPY [facility] [place]STROENTER[place] [address] 01/26/2022 Office Visit Hematology and Oncology Fabian Cameron MD [facility] HEMATOLOGY/[place] [address] Loan Burton APRN [facility] HEMATOLOGY/[place] [address] 01/26/2022 Infusion Hematology and Oncology 02/02/2022 Office Visit Hematology and Oncology Fabian Cameron MD [facility] HEMATOLOGY/[place] [address] 02/02/2022 Infusion Hematology and Oncology 02/22/2022 Telephone Hematology and Oncology Siena Lloyd RD [facility] DRIVE HEMATOLOGY [place] [address] Scheduled Procedures Name Priority Associated Diagnoses Date/Time EGD, UPPER GI ENDOSCOPY EGD with stent vs 2021 12:00 PM EDT cryotherapy. documented as of this encounter Visit Diagnoses Diagnosis Primary lung adenocarcinoma, right documented in this encounter Care Teams Career Development Counselor Relationship Specialty Start Date End Date Farzaneh Winkler, LINK WIRE FABRIC MACHINE TENDER PCP - General General Internal Medicine 06/05/[address] [place] [address] documented as of this encounter
--- OUTSIDE RECORDS SUMMARY | 2022-01-19 07:38 | XMS_ITS | Encounter Summary ---
:1950 Author Organization [facility] [address] Care Team Providers Name Role Phone Farzaneh Winkler APRN Primary Care Provider Reason for Visit Reason Comments Chemotherapy Cycle 15, Day 1 -- Durvaluam b Treatment/Therapy Plan Authorization (Routine) - Closed Specialty Diagnoses / Procedures Referred By Contact Refer red To Contact Diagnoses Primary lung adenocarcinoma, right Jonathan Bishop MD [facility] Hem Onc Infusion Procedures [place] CHEMOTHERAPY DRUG IMFINZI (DURVALUMAB) [address] [place] [address] 362 70 [place] [address] Phone: Fax: Referral ID Status Reason Start Date Expiration Date Visits Requ ested Visits Authorized [id number] Closed 08/21/2017 09/07/2023 50 50 Encounter Details Date Type Department Care Team Description 03/28/2018 Infusion Hematology Oncology at [facility] lung adenocarcinoma, [facility] [place] [facility] right [address] [place], [place] [address] [phone] Social History Tobacco Use Types Packs/Day Years Used Date Former Smoker Cigarettes 2 1969 - 2016 Smokeless Tobacco: Former User Chew [...] encounter Progress Notes Cassi Martinez RN - 03/28/2018 12:30 PM EDT INFUSION THERAPY ADMINISTRATION NOTES DIAGNOSIS: NSCLC CYCLE #: Cycle 15, Day 1 -- Durvalumab REASON FOR VISIT: To receive chemotherapy. SUBJECTIVE: Alin offers no complaints. OBJECTIVE: VSS. Seen by provider. Ready to treat. LAB DATA: WBC - 11.22, H/H - 12.9/40.7, Plt Ct - 322, ANC - 8.82, Lytes wnl, BUN/CR - 21/1.38 IV ACCESS: Port accessed off site, flushes readily with brisk blood return. Pre administration: Chemotherapy orders independently verified for drug name, route, and dosage per patient's height, weight and BSA by Mike Martinez RN and Kaya Lang [facility]. REACTIONS (DESCRIPTION, TIME, INTERVENTION AND EFFECTIVENESS) none ASSESSMENT: Alin was awake, alert and tolerated treatment well. Port flushed with 20 cc of NS and 500 units of heparin and de-accessed. PLAN: Return to clinic per routine. documented in this encounter Plan of Treatment Upcoming Encounters Date Type Specialty Care Team Description 01/19/2022 Office Visit Hematology and Oncology Loan Burton, DECKHAND CLAM DREDGE [facility] HEMATOLOGY/[place] [address] 01/19/2022 Infusion Hematology and Oncology Canc eled (F-ARIA CANCEL) 01/25/2022 Hospital Gastroenterology Jose Clark MD [facility] [place] [address] 01/25/2022 Surgery Gastroenterology Jose Clark, UPREENA Yates MD ENDOSCOPY [facility] [place] [address] 01/26/2022 Office Visit Hematology and Oncology Fabian Cameron MD [facility] DR HEMATOLOGY/[place] [address] Loan Burton APRN [facility] HEMATOLOGY/[place] [address] 01/26/2022 Infusion Hematology and Oncology 02/02/2022 Office Visit Hematology and Oncology Fabian Cameron MD [facility] DR HEMATOLOGY/[place] [address] 02/02/2022 Infusion Hematology and Oncology 02/22/2022 Telephone Hematology and Oncology Siena Lloyd RD [facility] DRIVE [place] [address] Scheduled Procedures Name Priority Associated Diagnoses Date/Time EGD, UPPER GI ENDOSCOPY EGD with stent vs 2021 12:00 PM EDT cryotherapy. documented as of this encounter Visit Diagnoses Diagnosis Primary lung adenocarcinoma, right documented in this encounter Administered Medications Inactive Administered Medications - up to 3 most recent administrations Medication Order MAR Action Action Date Dose Rate Site durvalumab (Imfinzi) 1,360 New Bag 03/28/2018 1:04 PM EDT 1,360 mg 277 mL/hr mg in sodium chloride 0.9% 277.2 mL infusion 1,360 mg, Intravenous, ONCE, 1 dose, On Stephanie 03/28/18 at 1345, Administer over 60 Minutes, No dose adjustments. Dose Ordered = 1329 mg (10 mg/kg). Pharmacist rounded dose per procedure. heparin, porcine 100 unit/mL flush 500 Given 03/28/2018 2:05 PM EDT 500 Units Units 500 Units, Intravenous, ONCE PRN, Starting on Stephanie 03/28/18 at 1226, Until Stephanie 03/28/18 at 1714, Line Care, Refer to Intravenous (IV) Procedure: Accessing Implanted Vascular Access Devices (654) procedure and/or Intravenous (IV) Job Aid: Adult Flushing & Catheter Care (0942) job aid for additional information regarding guidelines and administration., Routine sodium chloride 0.9 % flush 5-20 mL Given 03/28/2018 2:05 PM EDT 20 mLs 5-20 mL, Intravenous, EVERY 1 MIN PRN, Starting on Stephanie 03/28/18 at 1226, Until Stephanie 03/28/18 at 1714, Line Care, Flush pertains to all indwelling lines. Flush per protocol found in the job aid using the link provided on this medication record. Refer to Intravenous (IV) Job Aid: Adult Flushing & Catheter Care (8185) job aid for additional information regarding guidelines and administration., Routine documented in this encounter Care Teams Jacquard Loom Card Changer Relationship Specialty Start Date End Date Farzaneh Winkler, NOLAN PCP - General General Internal Medicine 06/05/[address] [place] [id number] documented as of this encounter
--- OUTSIDE RECORDS SUMMARY | 2022-01-19 07:38 | XMS_ITS | Encounter Summary ---
:1950 Author Organization [facility] [place] [address] Care Team Providers Name Role Phone Farzaneh Winkler APRN Primary Care Provider Reason for Visit Reason Comments Chemotherapy Cycle 26, Day 1; Durvalumab Treatment/Therapy Plan Authorization (Routine) - Closed Specialty Diagnoses / Procedures Referred By Contact Refer red To Contact Diagnoses Primary lung adenocarcinoma, right Jonathan Bishop MD [facility] Hem Onc Infusion Procedures [place] CHEMOTHERAPY DRUG IMFINZI (DURVALUMAB) [address] [place] [address] 352 98 [place] [address] Phone: Fax: Referral ID Status Reason Start Date Expiration Date Visits Requ ested Visits Authorized [id number] Closed 08/21/2017 09/07/2023 50 50 Encounter Details Date Type Department Care Team Description 09/05/2018 Infusion Hematology Oncology at [facility] lung adenocarcinoma, [facility] right [address] [place] [address] [phone] Social History Tobacco Use Types [...] documented as of this encounter Progress Notes Crissy Rodriguez RN - 09/05/2018 12:00 PM EDT INFUSION THERAPY ADMINISTRATION NOTES CYCLE #26, Day 1 REASON FOR VISIT: Durvalumab infusion [...] per patient's height, weight and BSA by CRISSY RODRIGUEZ, MADISYN and On-site pharmacist. REACTIONS (DESCRIPTION, TIME, INTERVENTION AND EFFECTIVENESS) none ASSESSMENT: Alin was awake, alert and tolerated treatment well. PLAN: Return to clinic as schedualed. documented in this encounter Plan of Treatment Upcoming Encounters Date Type Specialty Care Team Description 01/19/2022 Office Visit Hematology and Oncology Loan Burton, NOLAN [facility] HEMATOLOGY/[place] [address] 01/19/2022 Infusion Hematology and Oncology Canc eled (F-ARIA CANCEL) 01/25/2022 Hospital Gastroenterology Jose Clark MD [facility] GASTROENTEROLOG [place] [address] 01/25/2022 Surgery Gastroenterology Jose Clark UPPE R GI R, MD ENDOSCOPY [facility] GASTROENTEROLOG [place] [address] 01/26/2022 Office Visit Hematology and Oncology Fabian Cameron MD [facility] HEMATOLOGY/[place] [address] Loan Burton APRN [facility] HEMATOLOGY/[place] [address] 01/26/2022 Infusion Hematology and Oncology 02/02/2022 Office Visit Hematology and Oncology Fabian Cameron MD [facility] HEMATOLOGY/[place] [address] 02/02/2022 Infusion Hematology and Oncology 02/22/2022 Telephone Hematology and Oncology Siena Lloyd RD [facility] DRIVE HEMATOLOGY [place] [address] Scheduled Procedures Name Priority Associated Diagnoses Date/Time EGD, UPPER GI ENDOSCOPY EGD with stent vs 2021 12:00 PM EDT cryotherapy. documented as of this encounter Visit Diagnoses Diagnosis Primary lung adenocarcinoma, right documented in this encounter Administered Medications Inactive Administered Medications - up to 3 most recent administrations Medication Order MAR Action Action Date Dose Rate Site durvalumab (Imfinzi) 1,360 New Bag 09/05/2018 12:39 PM EDT 1,360 m g 277 mL/hr mg in sodium chloride 0.9% 277.2 mL infusion 1,360 mg, Intravenous, ONCE, 1 dose, On Stephanie 09/05/18 at 1330, Administer over 60 Minutes, No dose adjustments. Dose Ordered = 1329 mg (10 mg/kg). Pharmacist rounded dose per procedure. heparin, porcine 100 unit/mL flush 500 Given 09/05/2018 1:40 PM EDT 500 Units Units 500 Units, Intravenous, ONCE PRN, Starting on Stephanie 09/05/18 at 1207, Until Stephanie 09/05/18 at 1731, Line Care, Refer to Intravenous (IV) Procedure: Accessing Implanted Vascular Access Devices (404) procedure and/or Intravenous (IV) Job Aid: Adult Flushing & Catheter Care (4925) job aid for additional information regarding guidelines and administration., Routine sodium chloride 0.9 % flush 5-20 mL Given 09/05/2018 1:40 PM EDT 20 mLs 5-20 mL, Intravenous, EVERY 1 MIN PRN, Starting on Stephanie 09/05/18 at 1207, Until Stephanie 09/05/18 at 1731, Line Care, Flush pertains to all indwelling lines. Flush per protocol found in the job aid using the link provided on this medication record. Refer to Intravenous (IV) Job Aid: Adult Flushing & Catheter Care (7542) job aid for additional information regarding guidelines and administration., Routine documented in this encounter Care Teams Stocklayer Relationship Specialty Start Date End Date Farzaneh Winkler, CAR SALES REPRESENTATIVE PCP - General General Internal Medicine 06/05/[address] [place] [address] documented as of this encounter
--- OUTSIDE RECORDS SUMMARY | 2022-01-19 07:38 | XMS_ITS | Encounter Summary ---
:1950 Author Organization [facility] [place] [address] Care Team Providers Name Role Phone Farzaneh Winkler Daria BIOSOLIDS MANAGEMENT TECHNICIAN Primary Care Provider Encounter Details Date Type Department Care Team Description 05/23/2018 Office Visit Hematology/Oncology Julee Pratt, Morb id obesity; at [facility] BIOSOLIDS MANAGEMENT TECHNICIAN Primary lung adenocarcinoma, right [address] [place] [address] [address] [place], [place] [address] [place] [id number] [phone] (Wo rk) Social History Tobacco Use Types [...] Sign Reading Time Taken Comments Blood Pressure 142/59 05/23/2018 10:30 AM EST Pulse 95 05/23/2018 10:30 AM EST Temperature 36.6 ??C (97.9 ??F) 05/23/2018 10:30 AM EST Respiratory Rate 20 05/23/2018 10:30 AM EST Oxygen Saturation 98% 05/23/2018 10:30 AM EST Inhaled Oxygen Concentration - - Weight 142 kg (313 lb) 05/23/2018 10:30 AM EST Height 180 cm (5' 10.87) 05/23/2018 10:30 AM EST Body Mass Index 43.82 05/23/2018 10:30 AM EST documented in this encounter Progress Notes Santa Julee A, BIOSOLIDS MANAGEMENT TECHNICIAN - 05/23/2018 10:15 AM EST Diagnosis: 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 CT scan of the chest done at [facility] 01/15/18 demonstrates that the mass is gone [...] Denies any changes in his breathing. He had an appointment with his PCP who he states would like him to start methotrexate for his arthritis. Other than that he maintains his baseline status. His kidney function is slightly better as he reports he has stopped caffeine. Past medical history and social history are [...] Comment: for 8 months ??? 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 Smoking status: Former Smoker Packs/day: 2.00 Types: Cigarettes Start date: 1969 Last attempt to quit: 2016 Years since quittin.9 ??? Smokeless tobacco: Former User Types: Chew [...] Neurological: Negative. Hematological: Negative for adenopathy. BP 142/59 (Patient Position: Sitting) Pulse 95 Temp 36.6 ??C (97.9 ??F) (Oral) Resp 20 Ht 180 cm (5' 10.87) Wt (!) 142 kg (313 lb) SpO2 98% BMI 43.82 kg/m?? Wt Readings from Last 3 Encounters: 05/23/18 (!) 142 kg (313 lb) 05/10/18 (!) 142.9 kg (315 lb) 04/25/18 (!) 144.2 kg (318 lb) Physical Exam Constitutional: He is oriented [...] and affect. His behavior is normal. Labs: 05/23/2018 CBC: WBC 12.62 hemoglobin 13.3 platelets 343 CMP: Sodium 139 potassium 4.5 BUN 23 creatinine 1.47 glucose 144 calcium 9.0 total bili 0.4 AST 13 ALT 19 alk phos 89 total protein 7.9 albumin 3.3 TSH 1[address]: 04/10/2018 Impression: Stable appearance of the [...] be asymptomatic from treatment. Plan to restage 3mo interval which would be at the end of June. WBC somewhat elevated today but he typically runs high. 2. Pleural effusion: post XRT treatment - [...] hydration status somewhat better. Julee Pratt, MSN, LABOR UNION BUSINESS REPRESENTATIVE, AOCN Hematology/Oncology Nurse Practitioner [place], [place] [phone] documented in this encounter Plan of Treatment Upcoming Encounters Date Type Specialty Care Team Description 01/19/2022 Office Visit Hematology and Oncology Loan Burton, NOLAN [facility] HEMATOLOGY/[place] [address] 01/19/2022 Infusion Hematology and Oncology Canc eled (F-ARIA CANCEL) 01/25/2022 Hospital Gastroenterology Jose Clark MD [facility] GASTROENTEROLOG [place] [address] 01/25/2022 Surgery Gastroenterology Jose Clark UPPE R GI R, MD ENDOSCOPY [facility] GASTROENTEROLOG [place] [address] 01/26/2022 Office Visit Hematology and Oncology Fabian Cameron MD [facility] HEMATOLOGY/[place] [address] Loan Burton, NOLAN [facility] HEMATOLOGY/[place] [address] 01/26/2022 Infusion Hematology and Oncology 02/02/2022 Office Visit Hematology and Oncology Fabian Cameron MD [facility] HEMATOLOGY/[place] [address] 02/02/2022 Infusion Hematology and Oncology 02/22/2022 Telephone Hematology and Oncology Siena Lloyd RD [facility] DRIVE HEMATOLOGY [place] [address] Scheduled Procedures Name Priority Associated Diagnoses Date/Time EGD, UPPER GI ENDOSCOPY EGD with stent vs 2021 12:00 PM EDT cryotherapy. documented as of this encounter Visit Diagnoses Diagnosis Morbid obesity Primary lung adenocarcinoma, right documented in this encounter Care Teams Unit Manager Relationship Specialty Start Date End Date Farzaneh Winkler, NOLAN PCP - General General Internal Medicine 06/05/[address] [place] [phone] documented as of this encounter
--- OUTSIDE RECORDS SUMMARY | 2022-01-19 07:38 | XMS_ITS | Encounter Summary ---
:1950 Author Organization [place] [address] Care Team Providers Name Role Phone Farzaneh Winkler APRN Primary Care Provider Reason for Visit Reason Comments Chemotherapy Durvalumab, Cycle 16, Day 1 Treatment/Therapy Plan Authorization (Routine) - Closed Specialty Diagnoses / Procedures Referred By Contact Refer red To Contact Diagnoses Primary lung adenocarcinoma, right Jonathan Bishop MD [facility] Hem Onc Infusion Procedures [place] CHEMOTHERAPY DRUG IMFINZI (DURVALUMAB) [address] [place] [address] 814 [address] [place] [address] Phone: Fax: Referral ID Status Reason Start Date Expiration Date Visits Requ ested Visits Authorized [id number] Closed 08/21/2017 09/07/2023 50 50 Encounter Details Date Type Department Care Team Description 04/11/2018 Infusion Hematology Oncology at [facility] lung adenocarcinoma, [facility] right [address] [place] [address] [phone] Social History Tobacco Use Types [...] documented as of this encounter Progress Notes Carrie Chery RN - 04/11/2018 10:00 AM EDT INFUSION THERAPY ADMINISTRATION NOTES DIAGNOSIS: NSCLC CYCLE #16, Day 1 REASON FOR VISIT: Durvalumab infusion SUBJECTIVE: Pierre offers no complaints. OBJECTIVE: Seen by provider. Ready to treat. LAB DATA: WNL for today's infusion. IV ACCESS: Mediport Pre administration: Chemotherapy orders independently verified for drug name, route, and dosage per patient's height, weight and BSA by Carrie Chery RN and On-site pharmacist. REACTIONS (DESCRIPTION, TIME, INTERVENTION AND EFFECTIVENESS) none ASSESSMENT: Alin was awake, alert and tolerated treatment well. Port flushed with 20 cc of NS and 500 units of heparin and de-accessed. PLAN: Return to clinic in 2 weeks. documented in this encounter Plan of Treatment Upcoming Encounters Date Type Specialty Care Team Description 01/19/2022 Office Visit Hematology and Oncology Loan Burton APRN [facility] HEMATOLOGY/[place] [address] 01/19/2022 Infusion Hematology and Oncology Canc eled (F-ARIA CANCEL) 01/25/2022 Hospital Gastroenterology Jose Clark MD [facility] [place] [address] 01/25/2022 Surgery Gastroenterology Jose Clark UPPE R GI R, MD ENDOSCOPY [facility] [place] [address] 01/26/2022 Office Visit Hematology and Oncology Fabian Cameron MD [facility] HEMATOLOGY/[place] [address] Loan Burton APRN [facility] HEMATOLOGY/[place] [address] 01/26/2022 Infusion Hematology and Oncology 02/02/2022 Office Visit Hematology and Oncology Fabian Cameron MD [facility] HEMATOLOGY/[place] [address] 02/02/2022 Infusion Hematology and Oncology 02/22/2022 Telephone Hematology and Oncology Siena Lloyd RD [facility] [address] [address] Scheduled Procedures Name Priority Associated Diagnoses Date/Time EGD, UPPER GI ENDOSCOPY EGD with stent vs 2021 12:00 PM EDT cryotherapy. documented as of this encounter Visit Diagnoses Diagnosis Primary lung adenocarcinoma, right documented in this encounter Administered Medications Inactive Administered Medications - up to 3 most recent administrations Medication Order MAR Action Action Date Dose Rate Site durvalumab (Imfinzi) 1,360 New Bag 04/11/2018 10:44 AM EDT 1,360 m g 277 mL/hr mg in sodium chloride 0.9% 277.2 mL infusion 1,360 mg, Intravenous, ONCE, 1 dose, On Stephanie 04/11/18 at 1130, Administer over 60 Minutes, No dose adjustments. Dose Ordered = 1329 mg (10 mg/kg). Pharmacist rounded dose per procedure. heparin, porcine 100 unit/mL flush 500 Given 04/11/2018 11:53 AM EDT 500 Units Units 500 Units, Intravenous, ONCE PRN, Starting on Stephanie 04/11/18 at 1008, Until Stephanie 04/11/18 at 1354, Line Care, Refer to Intravenous (IV) Procedure: Accessing Implanted Vascular Access Devices (254) procedure and/or Intravenous (IV) Job Aid: Adult Flushing & Catheter Care (7283) job aid for additional information regarding guidelines and administration., Routine sodium chloride 0.9 % flush 5-20 mL Given 04/11/2018 11:53 AM EDT 20 mLs 5-20 mL, Intravenous, EVERY 1 MIN PRN, Starting on Stephanie 04/11/18 at 1008, Until Stephanie 04/11/18 at 1354, Line Care, Flush pertains to all indwelling lines. Flush per protocol found in the job aid using the link provided on this medication record. Refer to Intravenous (IV) Job Aid: Adult Flushing & Catheter Care (5670) job aid for additional information regarding guidelines and administration., Routine documented in this encounter Care Teams Before And After School Daycare Worker Relationship Specialty Start Date End Date Farzaneh Winkler, MAINTENANCE PORTER PCP - General General Internal Medicine 06/05/[address] [place] [address] documented as of this encounter
--- OUTSIDE RECORDS SUMMARY | 2022-01-19 07:38 | XMS_ITS | Encounter Summary ---
:1950 Author Organization [facility] [place] [address] Care Team Providers Name Role Phone Farzaneh Winkler APRN Primary Care Provider Reason for Referral Diagnostic Test (Routine) - Closed Specialty Diagnoses / Procedures Referred By Contact Refer red To Contact Radiology Diagnoses Primary lung adenocarcinoma, right Phuong Faulkner APRN [facility] Rad Nuclear Med Procedures NM PET CT Skull Base to Mid-thigh [address] [place] [address] [place] [address] [place], [place] [address] Referral ID Status Reason Start Date Expiration Date Visits V isits Requested Authorized [id number] Closed Specialty 06/26/2019 12/24/2020 1 1 Service Requested Reason for Visit Consultation (Routine) - Specialty Diagnoses / Procedures Referred By Contact Refer red To Contact Hematology and Diagnoses Malignant neoplasm of unspecified part of right bronchus or lung [facility] Hem Onc Office Oncology [address] [address] [place] [address] Referral ID Status Reason Start Date Expiration Date Visits V isits Requested Authorized [id number] Consult, Test 05/29/2019 06/15/2020 999 [facility] PCP Updated and/or Approved Encounter Details Date Type Department Care Team Description 06/26/2019 Office Visit Hematology/Oncology Cadence Cameron MD [facility] DR HEMATOLOGY/[place] [address] Primary lung at [facility] Phuong Faulkner, GAMING WORKER [address] [place] [address] [place] [address] adenocarcinoma, right [address] [place] [phone] Social History Tobacco Use Types Packs/Day [...] Sign Reading Time Taken Comments Blood Pressure 157/63 06/26/2019 2:58 PM EST Pulse 100 06/26/2019 2:58 PM EST Temperature 36.9 ??C (98.4 ??F) 06/26/2019 2:58 PM EST Respiratory Rate 20 06/26/2019 2:58 PM EST Oxygen Saturation 98% 06/26/2019 2:58 PM EST Inhaled Oxygen Concentration - - Weight 141.1 kg (311 lb) 06/26/2019 2:58 PM EST Height 180 cm (5' 10.87) 06/26/2019 2:58 PM EST Body Mass Index 43.54 06/26/2019 2:58 PM EST documented in this encounter Progress Notes Phuong Faulkner, NOLAN - 06/26/2019 3:00 PM EST Subjective: Patient ID: Alin Meek is a 68 y.o. male. HPI Stage IIIa adenocarcinoma of right lung 06/03 Not a surgical candidate EGFR/ALK negative PDL 1+ at 90% Definitive RT with carbo docetaxel 07/12-08/21 achieved a ME radiographically Durvalumab times 1 year completed 09/04/[address] therapy Last CT scan 11/19/18 stable with ME The patient returns to the [facility] in follow-up for his stage IIIa lung [...] accompanied by his . Overall doing OK. He took a fall on the back steps which aggravated his chronic back pain. Denies any fevers, chills or signs of infection. Loose nonproductive cough, no hemoptysis. Denies any new pain. No changes in appetite or unusual fatigue. He is seeing a economics analyst for his COPD. He is dyspneic with exertion but doesn't feel it is any worse. Patient Active Problem List Diagnosis Code ??? 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 Benign essential hypertension I10 ??? Chronic obstructive lung disease J44.9 ??? Morbid obesity E66.01 ??? Primary malignant neoplasm of lung C34.90 ??? Pain in joint M25.50 ??? Low back pain M54.5 Current Outpatient Medications: ??? folic acid (FOLVITE) 1 mg Tablet, TAKE ONE TABLET BY MOUTH EVERY DAY VITAMIN/NUTRITION SUPPLEMENT, Disp: , Rfl: ??? fluticasone/vilanterol (BREO ELLIPTA [...] a week. On Sunday, Disp: , Rfl: Allergies Allergen Reactions ??? [...] platelets 338 Creatinine 1.23, alk phos 84 Assessment and Plan: 68-year-old man who presented with a stage IIIa adenocarcinoma of the right lung. He was not a surgical candidate. He received definitive radiation with concurrent chemotherapy completing that in August2017. He achieved a partial remission by radiographic CT scan. Subsequently he was initiated on every 2 week immunotherapy with Durvalumab. He completed 1 year of that in 08/31. Recent CT chest done on 06/23/19 show interval increase in size of right pleural effusion. Interval increase in soft tissue density around the right hilum as well as new pleural based masses. Reviewed with Dr. Cameron-we will get a follow up PET scan to assess changes. Will schedule a follow up PET scan and have patient return for follow up with labs once PET has beencompleted. They understand they can call sooner if anything changes. documented in this encounter Plan of Treatment Upcoming Encounters Date Type Specialty Care Team Description 01/19/2022 Office Visit Hematology and Oncology Loan Burton APRN [facility] HEMATOLOGY/[place] [address] 01/19/2022 Infusion Hematology and Oncology Canc eled (F-ARIA CANCEL) 01/25/2022 Hospital Gastroenterology Jose Clark MD [facility] [place] [address] 01/25/2022 Surgery Gastroenterology Jose Clark UPPE R GI R, MD ENDOSCOPY [facility] [place] [address] 01/26/2022 Office Visit Hematology and Oncology Fabian Cameron MD [facility] HEMATOLOGY/[place] [address] Loan Burton APRN [facility] HEMATOLOGY/[place] [address] 01/26/2022 Infusion Hematology and Oncology 02/02/2022 Office Visit Hematology and Oncology Fabian Cameron MD [facility] HEMATOLOGY/[place] [address] 02/02/2022 Infusion Hematology and Oncology 02/22/2022 Telephone Hematology and Oncology Siena Lloyd RD [facility] DRIVE [place] [address] Scheduled Procedures Name Priority Associated Diagnoses Date/Time EGD, UPPER GI ENDOSCOPY EGD with stent vs 2021 12:00 PM EDT cryotherapy. documented as of this encounter Results NM PET CT Skull [...] report, please contact e number below. ? Electronically signed by: Luz Cuellar Replaced By [facility] ([phone]), at 07/22/2019 3:48 PM Narrative 07/22/2019 3:48 PM EST EXAMINATION: NM PET CT SKULL BASE TO MID-THIGH ? CLINICAL HISTORY: Non-small cell lung ca ncer, non-metastatic, assess treatment response CT scan 06/24/19 showed increase in pleura l effusion on right and new pleural based masses TECHNIQUE: Following IV injection of 18- hjsmdx-5-oysgqarsqxgq (FDG) a standard uptake of approximately 60 [...] masses TECHNIQUE: Following IV injection of 18- gdmxag-6-rcddbxaeuogy (FDG) a standard uptake of approximately 60 [...] pleural effusion. Preliminary report signed by: Mo Cain on at 07/22/2019 3:38 PM I have personally reviewed the image(s) and the resident's interpretation and agree with the findings, Ari Rose at 07/22/2019 3:48 PM Thank you for letting us participate in the care of this patient. For questions regarding this report, please contact e number below. Electronically signed by: Luz Cuellar Replaced By [facility] ([phone]), at 07/22/2019 3:48 PM Phuong Faulkner APRN IMG PET ORDERABLES documented in this encounter Visit Diagnoses Diagnosis Primary lung adenocarcinoma, right Primary lung adenocarcinoma, right documented in this encounter Care Teams Mixing Engineer Relationship Specialty Start Date End Date Farzanhe Winkler, GAMING WORKER PCP - General General Internal Medicine 06/05/[address] [place] [address] documented as of this encounter
--- OUTSIDE RECORDS SUMMARY | 2022-01-19 07:38 | XMS_ITS | Encounter Summary ---
:1950 Author Organization [facility] [place] [address] Care Team Providers Name Role Phone JoeFarzaneh florence Daria FRANCISCO Primary Care Provider Encounter Details Date Type Department Care Team Description 06/23/2019 Orders Only Hematology/Oncology Cadence Cameron MD Primary lung adenocarcinoma, right; at [facility] [place] [facility] due to drugs [address] [place] [address] [facility] [place] HEMATOLOGY/ONCOLO [address] [place] DEPT. [phone] [place], [place] [address] Social History Tobacco Use Types [...] Visit Hematology and Oncology Loan Burton, NOLAN [facility] HEMATOLOGY/[place] [address] 01/19/2022 Infusion Hematology and Oncology Canc eled (F-ARIA CANCEL) 01/25/2022 Hospital Gastroenterology Jose Clark MD [facility] [place] [address] 01/25/2022 Surgery Gastroenterology Jose Clark, LOLA Yates MD ENDOSCOPY [facility] [place] [address] 01/26/2022 Office Visit Hematology and Oncology Fabian Cameron MD [facility] DR HEMATOLOGY/[place] [address] Loan Burton APRN [facility] HEMATOLOGY/[place] [address] 01/26/2022 Infusion Hematology and Oncology 02/02/2022 Office Visit Hematology and Oncology Fabian Cameron MD [facility] HEMATOLOGY/[place] [address] 02/02/2022 Infusion Hematology and Oncology 02/22/2022 Telephone Hematology and Oncology Siena Lloyd RD [facility] DRIVE [place] [address] Scheduled Procedures Name Priority Associated Diagnoses Date/Time EGD, UPPER GI ENDOSCOPY EGD with stent vs 2021 12:00 PM EDT cryotherapy. documented as of this encounter Visit Diagnoses Diagnosis Primary lung adenocarcinoma, right Hypothyroidism due to drugs Other iatrogenic hypothyroidism documented in this encounter Care Teams House Superintendent Relationship Specialty Start Date End Date Farzaneh Winkler, NOLAN PCP - General General Internal Medicine 06/05/[address] [place] [address] documented as of this encounter
--- OUTSIDE RECORDS SUMMARY | 2022-01-19 07:38 | XMS_ITS | Encounter Summary ---
:1950 Author Organization [facility] [place] [address] Care Team Providers Name Role Phone Farzaneh Winkler APRN Primary Care Provider Encounter Details Date Type Department Care Team Description 04/10/2018 [facility] NOLAN [facility] [address] [facility] [place] [address] [place] [address] [phone] (Wo rk) Social History Tobacco Use Types [...] Sig Dispensed Refills Start Date End Date loperamide (Imodium A-D) Take 2 mg by [...] 0.1 % Cream times daily as needed. sertraline (ZOLOFT) 50 mg TAKE ONE TABLET BY 0 06/30/2018 Tablet MOUTH EVERY DAY FOR DEPRESSION OR ANXIETY prochlorperazine TAKE ONE TABLET BY 0 07/20/2017 07/21/2018 (COMPAZINE) 10 mg Tablet MOUTH EVERY SIX HOURS NEEDED FOR NAUSEA/VOMITING budesonide-formoterol INHALE 2 PUFFS BY 0 018 11/08/2018 (SYMBICORT) 160-4.5 MOUTH TWICE A DAY mcg/actuation HFA Aerosol Inhaler gabapentin (NEURONTIN) Take 300 mg by 0 03/20/2019 300 mg Capsule mouth 2 times daily. prochlorperazine Take 1 tablet by 30 tablet 3 07/19/2017 (COMPAZINE) 10 mg mouth every 6 hours TabletIndications: as needed for Primary lung Nausea. adenocarcinoma, right SERTRALINE HCL (ZOLOFT Take by mouth 0 04/24/2018 ORAL) daily. omeprazole (PRILOSEC) 40 Take daily, 1/2 30 capsule 3 201709/04/2019 mg Capsule, Delayed hour prior to Release(E.C.) breakfast on an empty stomach. amLODIPine (NORVASC) 10 Take 10 mg by mouth 0 10/21/2019 mg Tablet daily. BUDESONIDE/FORMOTEROL Inhale into the 0 04/24/2018 FUMARATE (SYMBICORT INHL) lungs 2 times daily. documented as of this encounter Plan of Treatment Upcoming Encounters Date Type Specialty Care Team Description 01/19/2022 Office Visit Hematology and Oncology Loan Burton, WATER SUPERVISOR [facility] HEMATOLOGY/[place] [address] 01/19/2022 Infusion Hematology and Oncology Canc eleseema (F-ARIA CANCEL) 01/25/2022 Hospital Gastroenterology Jose Clark Encounter RMD [facility] [place] [address] 01/25/2022 Surgery Gastroenterology Jsoe Clark EGD, LOLA Yates MD ENDOSCOPY [facility] DR [place] [address] 01/26/2022 Office Visit Hematology and Oncology Fabian Cameron MD [facility] DR HEMATOLOGY/[place] [address] Loan Burton WATER SUPERVISOR [facility] HEMATOLOGY/[place] [address] 01/26/2022 Infusion Hematology and Oncology 02/02/2022 Office Visit Hematology and Oncology Fabian Cameron MD [facility] HEMATOLOGY/[place] [address] 02/02/2022 Infusion Hematology and Oncology 02/22/2022 Telephone Hematology and Oncology Siena Lloyd, MUKUND [facility] DRIVE [place] [address] Scheduled Procedures Name Priority Associated Diagnoses Date/Time EGD, UPPER GI ENDOSCOPY EGD with stent vs 2021 12:00 PM EDT cryotherapy. documented as of this encounter Procedures Procedure Name Priority Date/Time Associated Diagnosis Comme nts FILM LIBRARY Routine 04/10/2018 12:00 AM Results for this STORAGE ONLY CT EDT procedure ar e in CHEST ABDOMEN the results PELVIS section. documented in this encounter Results Film Library- Storage Only CT Chest Abdomen Pelvis (04/10/2018 12:00 AM EDT) Specimen (Source) Anatomical Location Collection Method / Collectio n Time Received Time / Laterality Volume Narrative EUNICE - 04/11/2018 9:11 AM EDT This exam is for storage only and is aut o-finalizing. Julee Pratt [facility] FILM LIBRARY ORDERABLES Performing Organization Address City/State/ZIP Code Phon e Number [place], [place] documented in this encounter Visit Diagnoses Not on filedocumented in this encounter Care Teams Heat Treat Furnace Operator Relationship Specialty Start Date End Date Farzaneh Winkler APRN PCP - General General Internal Medicine 06/05/[address] [place] [address] documented as of this encounter
--- OUTSIDE RECORDS SUMMARY | 2022-01-19 07:38 | XMS_ITS | Encounter Summary ---
:1950 Author Organization [facility] [place] [address] Care Team Providers Name Role Phone Farzaneh Winkler APRN Primary Care Provider Encounter Details Date Type Department Care Team Description 04/25/2018 Office Visit Hematology/Oncology at Teresita Pratt APRN Morbid obesity [address] INTERNAL MEDICINE [place] [phone] Social History Tobacco Use Types Packs/Day Years [...] Sign Reading Time Taken Comments Blood Pressure 144/61 04/25/2018 1:25 PM EST Pulse 99 04/25/2018 1:25 PM EST Temperature 36.8 ??C (98.2 ??F) 04/25/2018 1:25 PM EST Respiratory Rate 16 04/25/2018 1:25 PM EST Oxygen Saturation 98% 04/25/2018 1:25 PM EST Inhaled Oxygen Concentration - - Weight 144.2 kg (318 lb) 04/25/2018 1:25 PM EST Height 180 cm (5' 10.87) 04/25/2018 1:25 PM EST Body Mass Index 44.52 04/25/2018 1:25 PM EST documented in this encounter Progress Notes [place] Jule[place] A, CURER ACID DRUM - 04/25/2018 1:30 PM EST Diagnosis: 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 CT scan of the chest done at [facility] 01/15/18 demonstrates that the mass is gone down further now down to 2.1 cm. The lymph nodes are all less than 1 cm. He continues to have 2 stable masses on the right adrenal that may not be metastatic tumor and does have now post radiation a moderate asymptomatic right effusion. Subjective: Alin comes in today for his 17th infusion of durvalumab. Past medical history and social history are [...] Comment: for 8 months ??? 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 Smoking status: [...] Neurological: Negative. Hematological: Negative for adenopathy. BP 144/61 (Patient Position: Sitting) Pulse 99 Temp 36.8 ??C (98.2 ??F) (Oral) Resp 16 Ht 180 cm (5' 10.87) Wt (!) 144.2 kg (318 lb) SpO2 98% BMI 44.52 kg/m?? Wt Readings from Last 3 Encounters: 04/25/18 (!) 144.2 kg (318 lb) 04/11/18 (!) 143.3 kg (316 lb) 03/28/18 (!) 142.9 kg (315 lb) Physical Exam Constitutional: He is oriented [...] and affect. His behavior is normal. Labs: 04/25/2018 CBC: WBC 10.07 hemoglobin 13.0 platelets 338 CMP: Sodium 135 potassium 4.3 BUN 19 creatinine 1.35 glucose 135 calcium 8.5 total bili 0.3 AST 14 ALT 13 alk phos 86 total protein 7.6 albumin 3.2 TSH 2.15 T4 8.7 ONCBCN ONCOLOGY (AMB) 04/11/2018 Day, Cycle Day 1, Cycle 16 CARBOplatin (PARAPLATIN) IV DOCEtaxel (TAXOTERE) IV durvalumab (Imfinzi) IV 1,[address]: 04/10/2018 Impression: Stable appearance of the right perihilar mass and stable right pleural effusion. No metastatic disease is identified in the abdomen or pelvis. Assessment/plan: 1. NSCLC s/p carbo/docetaxel with concurrent XRT completed 08/22/17: Alin is continuing to do well with the durvalumab. Breathing is stable. Plan for C17 today. Dose increased slightly when readjustedfor weight. Restaging CT demonstrates stable disease. He continues to be asymptomatic from treatment. Plan to restage in 3mo which would be at the end of June. 2. Pleural effusion: post XRT treatment - will follow. May resolve on its own but is stable for now. Julee Pratt, MSN, LOGISTICIAN, AOCN Hematology/Oncology Nurse Practitioner [place], [place] [phone] documented in this encounter Plan of Treatment Upcoming Encounters Date Type Specialty Care Team Description 01/19/2022 Office Visit Hematology and Oncology Loan Burton, NOLAN [facility] HEMATOLOGY/[place] [address] 01/19/2022 Infusion Hematology and Oncology Canc eled (F-ARIA CANCEL) 01/25/2022 Hospital Gastroenterology Jose Clark MD [facility] [place] [address] 01/25/2022 Surgery Gastroenterology Jose Clark UPPE R GI R, MD ENDOSCOPY [facility] [place] [address] 01/26/2022 Office Visit Hematology and Oncology Fabian Cameron MD [facility] DR HEMATOLOGY/[place] [address] Loan Burton APRN [facility] HEMATOLOGY/[place] [address] 01/26/2022 Infusion Hematology and Oncology 02/02/2022 Office Visit Hematology and Oncology Fabian Cameron MD [facility] HEMATOLOGY/[place] [address] 02/02/2022 Infusion Hematology and Oncology 02/22/2022 Telephone Hematology and Oncology Siena Lloyd RD [facility] DRIVE [place] [address] Scheduled Procedures Name Priority Associated Diagnoses Date/Time EGD, UPPER GI ENDOSCOPY EGD with stent vs 2021 12:00 PM EDT cryotherapy. documented as of this encounter Visit Diagnoses Diagnosis Morbid obesity documented in this encounter Care Teams Check And Transfer Beader Relationship Specialty Start Date End Date Farzaneh Winkler, CURER ACID DRUM PCP - General General Internal Medicine 06/05/[address] [place] [phone] documented as of this encounter
--- OUTSIDE RECORDS SUMMARY | 2022-01-19 07:38 | XMS_ITS | Encounter Summary ---
:1950 Author Organization [facility] [place] [address] Care Team Providers Name Role Phone Farzaneh Winkler APRN Primary Care Provider Reason for Visit Reason Comments Chemotherapy Durvalumab, cycle 19, Day 1 Treatment/Therapy Plan Authorization (Routine) - Closed Specialty Diagnoses / Procedures Referred By Contact Refer red To Contact Diagnoses Primary lung adenocarcinoma, right Jonathan Bishop MD [facility] Hem Onc Infusion Procedures AR CHEMOTHERAPY DRUG IMFINZI (DURVALUMAB) [address] [place] [address] 16 [place] [address] Phone: Fax: Referral ID Status Reason Start Date Expiration Date Visits Requ ested Visits Authorized [id number] Closed 08/21/2017 09/07/2023 50 50 Encounter Details Date Type Department Care Team Description 05/23/2018 Infusion Hematology Oncology at [facility] lung adenocarcinoma, [facility] right [address] [place] [phone] Social History Tobacco Use Types [...] documented as of this encounter Progress Notes Javon Chery RN - 05/23/2018 11:00 AM EST INFUSION THERAPY ADMINISTRATION NOTES CYCLE #19, Day 1 REASON FOR VISIT: Durvalumab infusion [...] patient's height, weight and BSA by JAVON CHERY, MADISYN and On-site pharmacist. REACTIONS (DESCRIPTION, TIME, INTERVENTION AND EFFECTIVENESS) none ASSESSMENT: Alin was awake, alert and tolerated treatment well. PLAN: Return to clinic as schedualed. documented in this encounter Plan of Treatment Upcoming Encounters Date Type Specialty Care Team Description 01/19/2022 Office Visit Hematology and Oncology Loan Burton APRN [facility] HEMATOLOGY/[place] [address] 01/19/2022 Infusion Hematology and Oncology Canc eled (F-ARIA CANCEL) 01/25/2022 Hospital Gastroenterology Jose Clark MD [facility] GASTROENTEROLOG [place] [address] 01/25/2022 Surgery Gastroenterology Jose Clark UPPE R GI R, MD ENDOSCOPY [facility] GASTROENTEROLOG [place] [address] 01/26/2022 Office Visit Hematology and Oncology Fabian Cameron MD [facility] HEMATOLOGY/[place] [address] Loan Burton APRN [facility] HEMATOLOGY/[place] [address] 01/26/2022 Infusion Hematology and Oncology 02/02/2022 Office Visit Hematology and Oncology Fabian Cameron MD [facility] HEMATOLOGY/[place] [address] 02/02/2022 Infusion Hematology and Oncology 02/22/2022 Telephone Hematology and Oncology Siena Lloyd RD [facility] DRIVE HEMATOLOGY [place] [address] Scheduled Procedures Name Priority Associated Diagnoses Date/Time EGD, UPPER GI ENDOSCOPY EGD with stent vs 2021 12:00 PM EDT cryotherapy. documented as of this encounter Visit Diagnoses Diagnosis Primary lung adenocarcinoma, right documented in this encounter Administered Medications Inactive Administered Medications - up to 3 most recent administrations Medication Order MAR Action Action Date Dose Rate Site durvalumab (Imfinzi) 1,360 New Bag 05/23/2018 12:18 PM EST 1,360 m g 277 mL/hr mg in sodium chloride 0.9% 277.2 mL infusion 1,360 mg, Intravenous, ONCE, 1 dose, On Stephanie 05/23/18 at 1215, Administer over 60 Minutes, No dose adjustments., Dose Ordered = 1433 mg (10 mg/kg). Pharmacist rounded dose per procedure. heparin, porcine 100 unit/mL flush 500 Given 05/23/2018 1:20 PM EST 500 Units Units 500 Units, Intravenous, ONCE PRN, Starting on Stephanie 05/23/18 at 1059, Until Stephanie 05/23/18 at 1618, Line Care, Refer to Intravenous (IV) Procedure: Accessing Implanted Vascular Access Devices (624) procedure and/or Intravenous (IV) Job Aid: Adult Flushing & Catheter Care (1792) job aid for additional information regarding guidelines and administration., Routine sodium chloride 0.9 % flush 5-20 mL Given 05/23/2018 1:20 PM EST 20 mLs 5-20 mL, Intravenous, EVERY 1 MIN PRN, Starting on Stephanie 05/23/18 at 1059, Until Stephanie 05/23/18 at 1618, Line Care, Flush pertains to all indwelling lines. Flush per protocol found in the job aid using the link provided on this medication record. Refer to Intravenous (IV) Job Aid: Adult Flushing & Catheter Care (8239) job aid for additional information regarding guidelines and administration., Routine documented in this encounter Care Teams Refuse Laborer Relationship Specialty Start Date End Date Farzaneh Winkler, CUSTOMER SUPPORT AGENT PCP - General General Internal Medicine 06/05/[address] [place] [address] documented as of this encounter
--- OUTSIDE RECORDS SUMMARY | 2022-01-19 07:38 | XMS_ITS | Encounter Summary ---
:1950 Author Organization [facility] [place] [address] Care Team Providers Name Role Phone Farzaneh Winkler APRN Primary Care Provider Reason for Visit Reason Comments Chemotherapy Cycle 14 Durvalumab Treatment/Therapy Plan Authorization (Routine) - Closed Specialty Diagnoses / Procedures Referred By Contact Refer red To Contact Diagnoses Primary lung adenocarcinoma, right Jonathan Bishop MD [facility] Hem Onc Infusion Procedures [place] CHEMOTHERAPY DRUG IMFINZI (DURVALUMAB) [address] [place] [address] 711 [address] [place] [address] Phone: Fax: Referral ID Status Reason Start Date Expiration Date Visits Requ ested Visits Authorized [id number] Closed 08/21/2017 09/07/2023 50 50 Encounter Details Date Type Department Care Team Description 03/14/2018 [facility] [address] [place] [address] [phone] Social History Tobacco Use Types [...] Sign Reading Time Taken Comments Blood Pressure 125/59 03/14/2018 9:32 AM EDT Pulse 93 03/14/2018 9:32 AM EDT Temperature 36.7 ??C (98.1 ??F) 03/14/2018 9:32 AM EDT Respiratory Rate 20 03/14/2018 9:32 AM EDT Oxygen Saturation 95% 03/14/2018 9:32 AM EDT Inhaled Oxygen Concentration - - Weight 142.4 kg (314 lb) 03/14/2018 9:32 AM EDT Height 180 cm (5' 10.87) 03/14/2018 9:32 AM EDT Body Mass Index 43.96 03/14/2018 9:32 AM EDT documented in this encounter Progress Notes Tena Leblanc RN - 03/14/2018 9:30 AM EDT INFUSION THERAPY ADMINISTRATION NOTES DIAGNOSIS: NSCLC CYCLE #14 REASON FOR VISIT: Durvalumab infusion SUBJECTIVE: Pierre offers no complaints. OBJECTIVE LAB DATA: WBC 10.34, Hgb 12.6, Hct 40.8, PLT 346k, ANC 7.66, BUN 19, Cr 1.35 IV ACCESS: Port already accessed by OSH for lab draw; dressing CDI, flushes easily with excellent blood return noted. Port flushed with 20cc NS and 500 units Heparin then de-accessed after completion of treatment. Pre administration: Chemotherapy orders independently verified for drug name, route, and dosage per patient's height, weight and BSA by Tena Leblanc RN and On-site pharmacist. REACTIONS (DESCRIPTION, TIME, INTERVENTION AND EFFECTIVENESS) none ASSESSMENT: Alin was awake, alert and tolerated treatment well. PLAN: Return to clinic as schedualed. documented in this encounter Plan of Treatment Upcoming Encounters Date Type Specialty Care Team Description 01/19/2022 Office Visit Hematology and Oncology Loan Burton, COOKER SYRUP [facility] HEMATOLOGY/[place] [address] 01/19/2022 Infusion Hematology and Oncology Canc eled (F-ARIA CANCEL) 01/25/2022 Hospital Gastroenterology Jose Clark MD [facility] GASTROENTEROLOG [place] [address] 01/25/2022 Surgery Gastroenterology Jose Clark UPPE R GI R, MD ENDOSCOPY [facility] DR GASTROENTEROLOG [place] [address] 01/26/2022 Office Visit Hematology and Oncology Fabian Cameron MD [facility] HEMATOLOGY/[place] [address] Loan Burton APRN [facility] HEMATOLOGY/[place] [address] 01/26/2022 Infusion Hematology and Oncology 02/02/2022 Office Visit Hematology and Oncology Fabian Cameron MD [facility] HEMATOLOGY/[place] [address] 02/02/2022 Infusion Hematology and Oncology 02/22/2022 Telephone Hematology and Oncology Siena Lloyd, MUKUND [facility] DRIVE HEMATOLOGY [place] [address] Scheduled Procedures Name Priority Associated Diagnoses Date/Time EGD, UPPER GI ENDOSCOPY EGD with stent vs 2021 12:00 PM EDT cryotherapy. documented as of this encounter Visit Diagnoses Diagnosis Primary lung adenocarcinoma, right documented in this encounter Administered Medications Inactive Administered Medications - up to 3 most recent administrations Medication Order MAR Action Action Date Dose Rate Site durvalumab (Imfinzi) 1,240 New Bag 03/14/2018 11:06 AM EDT 1,240 m g 275 mL/hr mg in sodium chloride 0.9% 274.8 mL infusion 1,240 mg, Intravenous, ONCE, 1 dose, On Stephanie 03/14/18 at 1115, Administer over 60 Minutes, No dose adjustments. heparin, porcine 100 unit/mL flush 500 Given 03/14/2018 12:10 PM EDT 500 Units Units 500 Units, Intravenous, ONCE PRN, Starting on Stephanie 03/14/18 at 0956, Until Stephanie 03/14/18 at 1603, Line Care, Refer to Intravenous (IV) Procedure: Accessing Implanted Vascular Access Devices (654) procedure and/or Intravenous (IV) Job Aid: Adult Flushing & Catheter Care (0677) job aid for additional information regarding guidelines and administration., Routine sodium chloride 0.9 % flush 5-20 mL Given 03/14/2018 12:10 PM EDT 20 mLs 5-20 mL, Intravenous, EVERY 1 MIN PRN, Starting on Stephanie 03/14/18 at 0956, Until Stephanie 03/14/18 at 1603, Line Care, Flush pertains to all indwelling lines. Flush per protocol found in the job aid using the link provided on this medication record. Refer to Intravenous (IV) Job Aid: Adult Flushing & Catheter Care (2123) job aid for additional information regarding guidelines and administration., Routine documented in this encounter Care Teams Environmental Compliance Engineer Relationship Specialty Start Date End Date Farzaneh Winkler, COOKER SYRUP PCP - General General Internal Medicine 06/05/[address] [place] [address] documented as of this encounter
--- OUTSIDE RECORDS SUMMARY | 2022-01-19 07:38 | XMS_ITS | Encounter Summary ---
:1950 Author Organization [facility] [place] [address] Care Team Providers Name Role Phone PetersonRamónrubio Huff APRN Primary Care Provider Encounter Details Date Type Department Care Team Description 11/19/2018 Ancillary Procedure Radiology Library at [facility] florence MD [facility] HEMATOLOGY/[place] [address] DEPT. [phone] [place], [place] 0[address] (Wo rk) Social History Tobacco [...] Visit Hematology and Oncology Loan Burton APRN [facility] HEMATOLOGY/[place] [address] 01/19/2022 Infusion Hematology and Oncology Canc eled (F-ARIA CANCEL) 01/25/2022 Hospital Gastroenterology Jose Clark MD [facility] GASTROENTEROLOG [place] [address] 01/25/2022 Surgery Gastroenterology Jose Clark, LOLA Yates MD ENDOSCOPY [facility] GASTROENTEROLOG [place] [address] 01/26/2022 Office Visit Hematology and Oncology Fabian Cameron MD [facility] DR HEMATOLOGY/[place] [address] Loan Burton APRN [facility] HEMATOLOGY/[place] [address] 01/26/2022 Infusion Hematology and Oncology 02/02/2022 Office Visit Hematology and Oncology Fabian Cameron MD [facility] HEMATOLOGY/[place] [address] 02/02/2022 Infusion Hematology and Oncology 02/22/2022 Telephone Hematology and Oncology Siena Lloyd RD [facility] DRIVE HEMATOLOGY [place] [address] Scheduled Procedures Name Priority Associated Diagnoses Date/Time EGD, UPPER GI ENDOSCOPY EGD with stent vs 2021 12:00 PM EDT cryotherapy. documented as of this encounter Procedures Procedure Name Priority Date/Time Associated Diagnosis Comme nts FILM LIBRARY Routine 11/19/2018 12:00 AM Results for this STORAGE ONLY CT EDT procedure ar e in CHEST the results section. documented in this encounter Results Film Library- Storage Only CT Chest (11/19/2018 12:00 AM EDT) Specimen (Source) Anatomical Location Collection Method / Collectio n Time Received Time / Laterality Volume Narrative DH RAD - 08/04/2019 4:28 PM EST This exam is auto-finalizing. It's purpo se is for storage only. Fabian Cameron MD IMG FILM LIBRARY ORDERABLES Performing Organization Address City/State/ZIP Code Phon e Number [place], [place] documented in this encounter Visit Diagnoses Not on filedocumented in this encounter Care Teams Photo Journalist Relationship Specialty Start Date End Date Farzaneh Winkler, CD [employer]OR[employer] MATERIAL[employer] MAKE UP HELPER PCP - General General Internal Medicine 06/05/[address] [place] [phone] documented as of this encounter
--- OUTSIDE RECORDS SUMMARY | 2022-01-19 07:38 | XMS_ITS | Encounter Summary ---
:1950 Author Organization [facility] [place] [address] Care Team Providers Name Role Phone Farzaneh Winkler Daria TROUT FARMER Primary Care Provider Encounter Details Date Type Department Care Team Description 04/11/2018 Office Visit Hematology/Oncology Julee Pratt, Prim pilar lung adenocarcinoma, right; at [facility] TROUT FARMER Hypothyroidism due to drugs [address] [place] [address] [address], [place] [address] [place] [address] [phone] Social History Tobacco Use Types Packs/Day Years [...] Sign Reading Time Taken Comments Blood Pressure 139/65 04/11/2018 9:33 AM EDT Pulse 88 04/11/2018 9:33 AM EDT Temperature 36.7 ??C (98.1 ??F) 04/11/2018 9:33 AM EDT Respiratory Rate 20 04/11/2018 9:33 AM EDT Oxygen Saturation 97% 04/11/2018 9:33 AM EDT Inhaled Oxygen Concentration - - Weight 143.3 kg (316 lb) 04/11/2018 9:33 AM EDT Height 180 cm (5' 10.87) 04/11/2018 9:33 AM EDT Body Mass Index 44.24 04/11/2018 9:33 AM EDT documented in this encounter Progress Notes Julee Pratt, TROUT FARMER - 04/11/2018 9:30 AM EDT Diagnosis: 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 CT scan of the chest done at [facility] 01/15/18 demonstrates that the mass is gone down further now down to 2.1 cm. The lymph nodes are all less than 1 cm. He continues to have 2 stable masses on the right adrenal that may not be metastatic tumor and does have now post radiation a moderate asymptomatic right effusion. Subjective: Alin comes in today for his 16th infusion of durvalumab. He has no new symptoms to report and specifically denies changes in his breathing, bowels, or skin. He continues to tolerate therapy very well. Ct demonstrates stable disease. He was hoping it would begone but we discussed that for us, control is a good thing. Past medical history and social history are [...] Comment: for 8 months ??? 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 Smoking status: Former Smoker Packs/day: 2.00 Types: Cigarettes Start date: 1969 Last attempt to quit: 2016 Years since quittin.8 ??? Smokeless tobacco: Former User Types: Chew Quit date: 1974 Substance and Sexual Activity ??? Alcohol use: [...] Neurological: Negative. Hematological: Negative for adenopathy. BP 139/65 (Patient Position: Sitting) Pulse 88 Temp 36.7 ??C (98.1 ??F) (Oral) Resp 20 Ht 180 cm (5' 10.87) Wt (!) 143.3 kg (316 lb) SpO2 97% BMI 44.24 kg/m?? Wt Readings from Last 3 Encounters: 04/11/18 (!) 143.3 kg (316 lb) 03/28/18 (!) 142.9 kg (315 lb) 03/14/18 (!) 142.4 kg (314 lb) Physical Exam Constitutional: He is oriented [...] and affect. His behavior is normal. Labs: 04/10/2018 CBC: WBC 10.59 hemoglobin 12.8 platelets 344 Sodium 137 potassium 3.9 BUN 23 creatinine 1.25 glucose 105 calcium 8.3 total bili 0.3 AST 13 ALT 19alk phos 77 albumin 3.0 TSH 2.42 T4 7.8 ONCBCN ONCOLOGY (AMB) 03/28/2018 Day, Cycle Day 1, Cycle 15 CARBOplatin (PARAPLATIN) IV DOCEtaxel (TAXOTERE) IV durvalumab (Imfinzi) IV 1,[address]: 04/10/2018 Impression: Stable appearance of the right perihilar mass and stable right pleural effusion. No metastatic disease is identified in the abdomen or pelvis. Assessment/plan: 1. NSCLC s/p carbo/docetaxel with concurrent XRT completed 08/22/17: Alin is continuing to do well with the durvalumab. Breathing is stable. Plan for C16 today. Dose increased slightly when readjustedfor weight. Restaging CT demonstrates stable disease. Plan to restage in 3mo which would be at the end of June. 2. Pleural effusion: post XRT treatment - will follow. May resolve on its own but is stable for now. Julee Pratt, MSN, C D STILL OPERATOR, AOCN Hematology/Oncology Nurse Practitioner [place], [place] [phone] documented in this encounter Plan of Treatment Upcoming Encounters Date Type Specialty Care Team Description 01/19/2022 Office Visit Hematology and Oncology Loan Burton APRN [facility] HEMATOLOGY/[place] [address] 01/19/2022 Infusion Hematology and Oncology Canc eled (F-ARIA CANCEL) 01/25/2022 Hospital Gastroenterology Jose Clark MD [facility] [place]STROENTER[place] [address] 01/25/2022 Surgery Gastroenterology Jose Clark EGLOLA Escobar MD ENDOSCOPY [facility] [place] [address] 01/26/2022 Office Visit Hematology and Oncology Fabian Cameron MD [facility] DR HEMATOLOGY/[place] [address] Loan Burton, NOLAN [facility] HEMATOLOGY/[place] [address] 01/26/2022 Infusion Hematology and Oncology 02/02/2022 Office Visit Hematology and Oncology Fabian Cameron MD [facility] HEMATOLOGY/[place] [address] 02/02/2022 Infusion Hematology and Oncology 02/22/2022 Telephone Hematology and Oncology Page, Siena Samayoa RD [facility] HEMATOLOGY [place] [address] Scheduled Procedures Name Priority Associated Diagnoses Date/Time EGD, UPPER GI ENDOSCOPY EGD with stent vs 2021 12:00 PM EDT cryotherapy. documented as of this encounter Procedures Procedure Name Priority Date/Time Associated Diagnosis Comme nts CT SCAN (SCAN) 04/10/2018 12:00 AM Result s for this EDT procedure are i n the results section . LAB SCAN 04/10/2018 12:00 AM Results for this EDT procedure are i n the results section . documented in this encounter Results SCAN DOC: CT SCAN (04/10/2018 12:00 AM EDT) Narrative 04/10/2018 12:00 AM EDT This result has an attachment that is no t available. Ordered by an unspecified provider. Scanning Provider MEDIA MGR SCAN EXT ORDR/RSLT SCAN DOC: LAB (04/10/2018 12:00 AM EDT) Narrative 04/10/2018 12:00 AM EDT This result has an attachment that is no t available. Ordered by an unspecified provider. 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
--- OUTSIDE RECORDS SUMMARY | 2022-01-19 07:38 | XMS_ITS | Encounter Summary ---
:1950 Author Organization [facility] [place] [address] Care Team Providers Name Role Phone Peterson Farzaneh Huff APRN Primary Care Provider Reason for Visit Reason Comments IV Access Port Flush--Cathflo Encounter Details Date Type Department Care Team Description 01/07/2019 Infusion Hematology Oncology at [facility] lung adenocarcinoma[address] [phone] Social History Tobacco Use [...] documented as of this encounter Progress Notes Conchita Munroe RN - 01/07/2019 1:30 PM EDT INFUSION THERAPY ADMINISTRATION NOTES TIME TREATMENT STARTED: 1400 TIME TREATMENT ENDED: 1530 DIAGNOSIS: NSCLC REASON FOR VISIT: MEDIPORT FLUSH & Cathflo IV ACCESS: Mediport GAUGE: 19G BLOOD RETURN: no--cathflo given---no result from cathflo after 1 hr..the patient had to leave to meat pickler . 1cc withdrawn and port flushed. ANY S/S OF INFECTION/EXTRAVASATIONS: no signs of IV complications observed IV FLUSHED WITH: 20cc NS and 500 units Heparin IV DISCONTINUED: yes ASSESSMENT: Patient tolerated treatment well. PLAN: Return to clinic per routine. documented in this encounter Plan of Treatment Upcoming Encounters Date Type Specialty Care Team Description 01/19/2022 Office Visit Hematology and Oncology Loan Burton APRN [facility] HEMATOLOGY/[place] [address] 01/19/2022 Infusion Hematology and Oncology Canc eled (F-ARIA CANCEL) 01/25/2022 Hospital Gastroenterology Jose Clark MD [facility] GASTROENTEROLOG [place] [address] 01/25/2022 Surgery Gastroenterology Jose Clark EGD, UPPE Milan Yates MD ENDOSCOPY [facility] GASTROENTEROLOG [place] [address] 01/26/2022 Office Visit Hematology and Oncology Fabian Cameron MD [facility] HEMATOLOGY/[place] [address] Loan Burton APRN [facility] HEMATOLOGY/[place] [address] 01/26/2022 Infusion Hematology and Oncology 02/02/2022 Office Visit Hematology and Oncology Fabian Cameron MD [facility] HEMATOLOGY/[place] [address] 02/02/2022 Infusion Hematology and Oncology 02/22/2022 Telephone Hematology and Oncology Siena Lloyd RD [facility] HEMATOLOGY [place] [address] Scheduled Procedures Name Priority Associated Diagnoses Date/Time EGD, UPPER GI ENDOSCOPY EGD with stent vs 2021 12:00 PM EDT cryotherapy. documented as of this encounter Visit Diagnoses Diagnosis Primary lung adenocarcinoma, right documented in this encounter Administered Medications Inactive Administered Medications - up to 3 most recent administrations Medication Order MAR Action Action Date Dose Rate Site alteplase (CATHFLO) injection 2 mg Given 01/07/2019 2:07 PM EDT 2 mg 2 mg, Intravenous, ONCE, 1 dose, On e 01/07/19 at 1415, Instill into occluded lumen as directed., Routine documented in this encounter Care Teams Martial Arts Instructor Relationship Specialty Start Date End Date Farzaneh Winkler, ORDER ENTRY PCP - General General Internal Medicine 06/05/[address] [place] [phone] documented as of this encounter
--- OUTSIDE RECORDS SUMMARY | 2022-01-19 07:38 | XMS_ITS | Encounter Summary ---
:1950 Author Organization [facility] [place] [address] Care Team Providers Name Role Phone Farzaneh Winkler APRN Primary Care Provider Reason for Visit Reason Comments Chemotherapy Durvalumab, Cycle 21, Day 1 Treatment/Therapy Plan Authorization (Routine) - Closed Specialty Diagnoses / Procedures Referred By Contact Refer red To Contact Diagnoses Primary lung adenocarcinoma, right Jonathan Bishop MD [facility] Hem Onc Infusion Procedures [place] CHEMOTHERAPY DRUG IMFINZI (DURVALUMAB) [address] [place] [address] 965 [address] [place] [address] Phone: Fax: Referral ID Status Reason Start Date Expiration Date Visits Requ ested Visits Authorized [id number] Closed 08/21/2017 09/07/2023 50 50 Encounter Details Date Type Department Care Team Description 06/20/2018 Infusion Hematology Oncology at [facility] lung adenocarcinoma, [facility] right [address] [place] [phone] Social History Tobacco Use Types [...] Sign Reading Time Taken Comments Blood Pressure 147/88 06/20/2018 11:09 AM EST Pulse 90 06/20/2018 11:09 AM EST Temperature 36.7 ??C (98.1 ??F) 06/20/2018 11:09 AM EST Respiratory Rate 20 06/20/2018 11:09 AM EST Oxygen Saturation 98% 06/20/2018 11:09 AM EST Inhaled Oxygen Concentration - - Weight 143.8 kg (317 lb) 06/20/2018 11:09 AM EST Height 180 cm (5' 10.87) 06/20/2018 11:09 AM EST Body Mass Index 44.38 06/20/2018 11:09 AM EST documented in this encounter Progress Notes Javon Chery RN - 06/20/2018 11:30 AM EST INFUSION THERAPY ADMINISTRATION NOTES CYCLE #21, Day 1 REASON FOR VISIT: Durvalumab infusion [...] [facility] [address] 01/19/2022 Infusion Hematology and Oncology Canc eled (F-ARIA CANCEL) 01/25/2022 Hospital Gastroenterology Jose Clark MD [facility] [place] [address] 01/25/2022 Surgery Gastroenterology Jose Clark EGD, LOLA Yates MD ENDOSCOPY [facility] [place] [address] 01/26/2022 Office Visit Hematology and Oncology Fabian Cameron MD [facility] DR HEMATOLOGY/[place] [address] Loan Burton APRN [facility] HEMATOLOGY/[place] [address] 01/26/2022 Infusion Hematology and Oncology 02/02/2022 Office Visit Hematology and Oncology Fabian Cameron MD [facility] DR HEMATOLOGY/[place] [address] 02/02/2022 Infusion Hematology and Oncology 02/22/2022 Telephone Hematology and Oncology Siena Lloyd, MUKUND [facility] DR[place] [address] Scheduled Procedures Name Priority Associated Diagnoses Date/Time EGD, UPPER GI ENDOSCOPY EGD with stent vs 2021 12:00 PM EDT cryotherapy. documented as of this encounter Visit Diagnoses Diagnosis Primary lung adenocarcinoma, right documented in this encounter Administered Medications Inactive Administered Medications - up to 3 most recent administrations Medication Order MAR Action Action Date Dose Rate Site durvalumab (Imfinzi) 1,360 New Bag 06/20/2018 11:58 AM EST 1,360 m g 277 mL/hr mg in sodium chloride 0.9% 277.2 mL infusion 1,360 mg, Intravenous, ONCE, 1 dose, On Stephanie 06/20/18 at 1245, Administer over 60 Minutes, No dose adjustments., Dose Ordered = 1433 mg (10 mg/kg). Pharmacist rounded dose per procedure. heparin, porcine 100 unit/mL flush 500 Given 06/20/2018 1:07 PM EST 500 Units Units 500 Units, Intravenous, ONCE PRN, Starting on Stephanie 06/20/18 at 1117, Until Stephanie 06/20/18 at 1514, Line Care, Refer to Intravenous (IV) Procedure: Accessing Implanted Vascular Access Devices (654) procedure and/or Intravenous (IV) Job Aid: Adult Flushing & Catheter Care (2249) job aid for additional information regarding guidelines and administration., Routine sodium chloride 0.9 % flush 5-20 mL Given 06/20/2018 1:07 PM EST 20 mLs 5-20 mL, Intravenous, EVERY 1 MIN PRN, Starting on Stephanie 06/20/18 at 1117, Until Stephanie 06/20/18 at 1514, Line Care, Flush pertains to all indwelling lines. Flush per protocol found in the job aid using the link provided on this medication record. Refer to Intravenous (IV) Job Aid: Adult Flushing & Catheter Care (6713) job aid for additional information regarding guidelines and administration., Routine documented in this encounter Care Teams Substation Technician Relationship Specialty Start Date End Date Farzaneh Winkler, NOLAN PCP - General General Internal Medicine 06/05/[address] [place] [phone] documented as of this encounter
--- OUTSIDE RECORDS SUMMARY | 2022-01-19 07:38 | XMS_ITS | Encounter Summary ---
:1950 Author Organization [facility] [place] [address] Care Team Providers Name Role Phone Farzaneh Winkler Daria FRANCISCO Primary Care Provider Encounter Details Date Type Department Care Team Description 03/20/2019 Office Visit Hematology/Oncology Cadence Cameron MD Primary lung at [facility] adenocarcinoma, right [address] [place], [place] HEMATOLOGY/ONCOLOG [address] Y DEPT. [phone] [place] [id number] Social History Tobacco Use Types Packs/Day Years [...] Sign Reading Time Taken Comments Blood Pressure 145/76 03/20/2019 10:26 AM EDT Pulse 106 03/20/2019 10:26 AM EDT Temperature 36.7 ??C (98.1 ??F) 03/20/2019 10:26 AM EDT Respiratory Rate 20 03/20/2019 10:26 AM EDT Oxygen Saturation 98% 03/20/2019 10:26 AM EDT Inhaled Oxygen Concentration - - Weight 139.9 kg (308 lb 6.4 oz) 03/20/2019 10:26 AM EDT Height 180 cm (5' 10.87) 03/20/2019 10:26 AM copied EDT Body Mass Index 43.18 03/20/2019 10:26 AM EDT documented in this encounter Progress Notes Fabian Cameron MD - 03/20/2019 10:30 AM EDT Subjective: Patient ID: Alin Meek is a 68 y.o. male. HPI Stage IIIa adenocarcinoma of right lung 06/03 Not a surgical candidate EGFR/ALK negative PDL 1+ at 90% Definitive RT with carbo docetaxel 07/12-08/21 achieved a OH radiographically Durvalumab times 1 year completed 09/04/[address] as [address] therapy Last CT scan 11/19/18 stable with OH The patient returns to the [facility] in follow-up for his stage IIIa lung cancer. He is now over a year and a half out from a diagnosis of a stage IIIa adenocarcinoma of the right lung. He was treated with combined modality therapy and then finished a year of adjuvant immunotherapy. Since we last saw him he did have a abdominal surgery to remove the polyp. Recovering fine from that. He still has his port in although were not using it. It does not work to draw labs out of. I recommended that we remove that. Patient Active Problem List Diagnosis Code ??? [...] empty stomach. (Patient not taking: Reported on 03/20/2019), Disp: 30 capsule, Rfl: 3 ??? losartan [...] physical exam. We will plan to repeat his CAT scan then which will be his 2-year anniversary from his diagnosis. I would recommend that the port come out since we are not using it at this point. See NCCN guidelines below. NCCN Guidelines: documented in this encounter Miscellaneous Notes Addendum Note - Fabian Cameron MD - 03/20/2019 10:30 AM EDT Addended by: FABIAN CAMERON on: 03/20/2019 12:21 PM Modules accepted: Orders documented in this encounter Plan of Treatment Upcoming Encounters Date Type Specialty Care Team Description 01/19/2022 Office Visit Hematology and Oncology Loan Burton, NOLAN [facility] HEMATOLOGY/[place] [address] 01/19/2022 Infusion Hematology and Oncology Canc eled (F-ARIA CANCEL) 01/25/2022 Hospital Gastroenterology Jose Clark MD [facility] [place] [address] 01/25/2022 Surgery Gastroenterology Jose ClarkD, LOLA Yates MD ENDOSCOPY [facility] [place] [address] 01/26/2022 Office Visit Hematology and Oncology Fabian Cameron MD [facility] DR HEMATOLOGY/[place] [address] Loan Burton APRN [facility] HEMATOLOGY/[place] [address] 01/26/2022 Infusion Hematology and Oncology 02/02/2022 Office Visit Hematology and Oncology Fabian Cameron MD [facility] DR HEMATOLOGY/[place] [address] 02/02/2022 Infusion Hematology and Oncology 02/22/2022 Telephone Hematology and Oncology Siena Lloyd, MUKUND [facility] [address] [address] Scheduled Procedures Name Priority Associated Diagnoses Date/Time EGD, UPPER GI ENDOSCOPY EGD with stent vs 2021 12:00 PM EDT cryotherapy. documented as of this encounter Visit Diagnoses Diagnosis Primary lung adenocarcinoma, right documented in this encounter Care Teams Data Control Clerk Relationship Specialty Start Date End Date Farzaneh Winkler APRN PCP - General General Internal Medicine 06/05/[address] [place] [id number] documented as of this encounter
--- OUTSIDE RECORDS SUMMARY | 2022-01-19 07:38 | XMS_ITS | Encounter Summary ---
:1950 Author Organization [facility] [place] [address] Care Team Providers Name Role Phone Farzaneh Winkler APRN Primary Care Provider Reason for Visit Reason Comments Chemotherapy Cycle 18 Durvalumab Treatment/Therapy Plan Authorization (Routine) - Closed Specialty Diagnoses / Procedures Referred By Contact Refer red To Contact Diagnoses Primary lung adenocarcinoma, right Jonathan Bishop MD [facility] Hem Onc Infusion Procedures [place] CHEMOTHERAPY DRUG IMFINZI (DURVALUMAB) [address] [place] [address] [address] [place] [address] Phone: Fax: Referral ID Status Reason Start Date Expiration Date Visits Requ ested Visits Authorized [id number] Closed 08/21/2017 09/07/2023 50 50 Encounter Details Date Type Department Care Team Description 05/10/2018 [facility] [address] [place] [address] [phone] Social History Tobacco Use Types [...] documented as of this encounter Progress Notes Tena Leblanc RN - 05/10/2018 10:30 AM EST INFUSION THERAPY ADMINISTRATION NOTES DIAGNOSIS: NSCLC CYCLE #18 REASON FOR VISIT: Durvalumab infusion SUBJECTIVE: Pierre [...] [facility] HEMATOLOGY/[place] [address] 01/19/2022 Infusion Hematology and Oncology Canc eled (F-ARIA CANCEL) 01/25/2022 Hospital Gastroenterology Jose Clark MD [facility] GASTROENTEROLOG [place] [address] 01/25/2022 Surgery Gastroenterology Jose Clark UPPE R GI R, MD ENDOSCOPY [facility] GASTROENTEROLOG [place] [address] 01/26/2022 Office Visit Hematology and Oncology Fabian Cameron MD [facility] HEMATOLOGY/[place] [address] Loan Burton APRN [facility] DR HEMATOLOGY/[place] [address] 01/26/2022 Infusion Hematology and Oncology 02/02/2022 Office Visit Hematology and Oncology Fabian Cameron MD [facility] HEMATOLOGY/[place] [address] 02/02/2022 Infusion Hematology and Oncology 02/22/2022 Telephone Hematology and Oncology Siena Lloyd, MUKUND [facility] DRIVE HEMATOLOGY [place] [address] Scheduled Procedures Name Priority Associated Diagnoses Date/Time EGD, UPPER GI ENDOSCOPY EGD with stent vs 2021 12:00 PM EDT cryotherapy. documented as of this encounter Procedures Procedure Name Priority Date/Time Associated Diagnosis Comme nts LAB SCAN 05/10/2018 12:00 AM Results for this EST procedure are i n the results section . documented in this encounter Results SCAN DOC: LAB (05/10/2018 12:00 AM EST) Narrative 05/10/2018 12:00 AM EST This result has an [...] Rate Site durvalumab (Imfinzi) 1,360 New Bag 05/10/2018 11:53 AM EST 1,360 m g 277 mL/hr mg in sodium chloride 0.9% 277.2 mL infusion 1,360 mg, Intravenous, ONCE, 1 dose, On Sun05/10/18 at 1200, Administer over 60 Minutes, No dose adjustments., Dose Ordered = 1433 mg (10 mg/kg). Pharmacist rounded dose per procedure. heparin, porcine 100 unit/mL flush 500 Given 05/10/2018 1:00 PM EST 500 Units Units 500 Units, Intravenous, ONCE PRN, Starting on Sun05/10/18 at 1044, Until Sun05/10/18 at 1851, Line Care, Refer to Intravenous (IV) Procedure: Accessing Implanted Vascular Access Devices (654) procedure and/or Intravenous (IV) Job Aid: Adult Flushing & Catheter Care (8514) job aid for additional information regarding guidelines and administration., Routine sodium chloride 0.9 % flush 5-20 mL Given 05/10/2018 1:00 PM EST 20 mLs 5-20 mL, Intravenous, EVERY 1 MIN PRN, Starting on Sun05/10/18 at 1044, Until Sun05/10/18 at 1851, Line Care, Flush pertains to all indwelling lines. Flush per protocol found in the job aid using the link provided on this medication record. Refer to Intravenous (IV) Job Aid: Adult Flushing & Catheter Care (3263) job aid for additional information regarding guidelines and administration., Routine documented in this encounter Care Teams Dixonac Operator Relationship Specialty Start Date End Date Farzaneh Winkler, FROZEN MEAT CUTTER PCP - General General Internal Medicine 06/05/[address] [place] [id number] documented as of this encounter
--- OUTSIDE RECORDS SUMMARY | 2022-01-19 07:38 | XMS_ITS | Encounter Summary ---
:1950 Author Organization [facility] [place] [address] Care Team Providers Name Role Phone PetersonRamónrubio Huff APRN Primary Care Provider Encounter Details Date Type Department Care Team Description 09/02/2018 Ancillary Procedure Radiology Library at RakeshFabian florence MD [facility] HEMATOLOGY/[place] [address] DEPT. [phone] [place], [place] [address] (Wo rk) Social History Tobacco [...] Visit Hematology and Oncology Loan Burton APRN [facility] HEMATOLOGY/[place] [address] 01/19/2022 Infusion Hematology and Oncology Canc eled (F-ARIA CANCEL) 01/25/2022 Hospital Gastroenterology Jose Clark MD [facility] [place] [address] 01/25/2022 Surgery Gastroenterology Jose Clark, LOLA Yates MD ENDOSCOPY [facility] [place] [address] 01/26/2022 Office Visit Hematology and Oncology Fabian Cameron MD [facility] DR HEMATOLOGY/[place] [address] Loan Burton APRN [facility] HEMATOLOGY/[place] [address] 01/26/2022 Infusion Hematology and Oncology 02/02/2022 Office Visit Hematology and Oncology Fabian Cameron MD [facility] HEMATOLOGY/[place] [address] 02/02/2022 Infusion Hematology and Oncology 02/22/2022 Telephone Hematology and Oncology Siena Lloyd RD [facility] DRIVE H[place]ATOLOGY [place] [address] Scheduled Procedures Name Priority Associated Diagnoses Date/Time EGD, UPPER GI ENDOSCOPY EGD with stent vs 2021 12:00 PM EDT cryotherapy. documented as of this encounter Procedures Procedure Name Priority Date/Time Associated Diagnosis Comme nts CT SCAN (SCAN) 09/02/2018 12:00 AM Result s for this EDT procedure are i n the results section. FILM LIBRARY Routine 09/02/2018 12:00 AM Results for this STORAGE ONLY CT EDT procedure ar e in CHEST the results section. documented in this encounter Results SCAN DOC: CT SCAN (09/02/2018 12:00 AM EDT) Narrative 09/02/2018 12:00 AM EDT This result has an attachment that is no t available. Ordered by an unspecified provider. Scanning Provider MEDIA MGR SCAN EXT ORDR/RSLT Film Library- Storage Only CT Chest (09/02/2018 12:00 AM EDT) Specimen (Source) Anatomical Location Collection Method / Collectio n Time Received Time / Laterality Volume Narrative RAD - 09/03/2018 9:11 AM EDT This exam is auto-finalizing. It's purpo se is for storage only. Fabian Cameron MD IMG FILM LIBRARY ORDERABLES Performing Organization Address City/State/ZIP Code Phon e Number [place], [place] documented in this encounter Visit Diagnoses Not on filedocumented in this encounter Care Teams Turbine Measurements Engineer Relationship Specialty Start Date End Date Farzaneh Winkler APRN PCP - General General Internal Medicine 06/05/[address] [place] [address] documented as of this encounter
--- OUTSIDE RECORDS SUMMARY | 2022-01-19 07:39 | XMS_ITS | Encounter Summary ---
:1950 Author Organization [facility] [place] [address] Care Team Providers Name Role Phone Farzaneh Winkler Daria FRANCISCO Primary Care Provider Encounter Details Date Type Department Care Team Description 09/11/2017 Notes Only Hematology Oncology at Carol Shook MSW [facility] OFFICE OF CARE [address] [place] [phone] Social History Tobacco Use Types Packs/Day Years [...] as of this encounter Progress Notes Carol Shook MSW - 09/11/2017 1:21 PM EDT Follow up with pt during infusion. He requested information to apply for financial assistance through [facility] as he is concerned about out of pocket medical expenses and the [facility] may not be covering what hethought they would. Gave pt a NSA application and contact information to [employer]. documented in this encounter Plan of Treatment Upcoming Encounters Date Type Specialty Care Team Description 01/19/2022 Office Visit Hematology and Oncology Loan Burton APRN [facility] HEMATOLOGY/[place] [address] 01/19/2022 Infusion Hematology and Oncology Canc eled (F-ARIA CANCEL) 01/25/2022 Hospital Gastroenterology Jose Clark MD [facility] [place] [address] 01/25/2022 Surgery Gastroenterology Jose Clark UPPE R GI R, MD ENDOSCOPY [facility] [place] [address] 01/26/2022 Office Visit Hematology and Oncology Fabian Cameron MD [facility] HEMATOLOGY/[place] [address] Loan Burton APRN [facility] HEMATOLOGY/[place] [address] 01/26/2022 Infusion Hematology and Oncology 02/02/2022 Office Visit Hematology and Oncology Fabian Cameron MD [facility] HEMATOLOGY/[place] [address] 02/02/2022 Infusion Hematology and Oncology 02/22/2022 Telephone Hematology and Oncology Siena Lloyd, MUKUND [facility] DRIVE H[place] [address] Scheduled Procedures Name Priority Associated Diagnoses Date/Time EGD, UPPER GI ENDOSCOPY EGD with stent vs 2021 12:00 PM EDT cryotherapy. documented as of this encounter Visit Diagnoses Not on filedocumented in this encounter Care Teams Fern Cutter Relationship Specialty Start Date End Date Farzaneh Winkler, NOLAN PCP - General General Internal Medicine 06/05/[address] [place] [id number] documented as of this encounter
--- OUTSIDE RECORDS SUMMARY | 2022-01-19 07:39 | XMS_ITS | Encounter Summary ---
:1950 Author Organization [place] [address] Care Team Providers Name Role Phone Farzaneh Winkler APRN Primary Care Provider Reason for Visit Reason Comments Lung Cancer Encounter Details Date Type Department Care Team Description 09/11/2017 Office Visit Hematology/Oncology Jonathan Bishop, Hyp othyroidism due to drugs; at [facility] Primary lung adenocarcinoma, right [address], [place] [address] [phone] Social History Tobacco Use Types Packs/Day Years [...] Sign Reading Time Taken Comments Blood Pressure 141/75 09/11/2017 10:45 AM EDT Pulse 103 09/11/2017 10:45 AM EDT Temperature 36.5 ??C (97.7 ??F) 09/11/2017 10:45 AM EDT Respiratory Rate 22 09/11/2017 10:45 AM EDT Oxygen Saturation 99% 09/11/2017 10:45 AM EDT Inhaled Oxygen Concentration - - Weight 131.1 kg (289 lb) 09/11/2017 10:45 AM EDT Height 180 cm (5' 10.87) 09/11/2017 10:45 AM EDT sandeep stephenson Body Mass Index 40.46 09/11/2017 10:45 AM EDT documented in this encounter Progress Notes Jonathan Bishop MD - 09/11/2017 11:00 AM EDT Images from the original note were not included. 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 He is clinically responded and is breathing better and not having much in the way of esophagitis or swallowing problems. We did hold 1 weeks treatment but are able to get in a 6 weekly treatment. That week was held because of low blood counts but they did recover and I am pleased to tell him today is his counts have held up and we can give him his final chemotherapy today. We have discussed starting a checkpoint inhibitor posttreatment in view of the new data showing that patients that are treated in this way post response to chemoradiation therapy do much better with delayed recurrence and higher cure rates. Durvalumab was used and it was givenevery 3 weeks for a year. This is particularly attractive and him with a tumor that is highly PDL 1 positive. Clinically he has responded so should be eligible for this but we will check a baseline CT scan at the CT before starting. Review of systems is otherwise negative. Past medical history and social history are reviewed and unchanged from when I saw him last week. Past Medical History: Diagnosis Date ??? Adenocarcinoma, [...] [employer] for 8 months ??? 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 Smoking [...] activity change, fatigue and unexpected weight change. HENT: Negative for sore throat, mouth sores and trouble swallowing. Eyes: Negative. Respiratory: Negative for cough, shortness of breath and wheezing. Cardiovascular: Negative for chest pain, palpitations and leg swelling. Gastrointestinal: Negative for nausea, vomiting, abdominal pain, diarrhea, constipation and abdominal distention. Genitourinary: Negative for dysuria and difficulty urinating. Musculoskeletal: Negative. Skin: Negative. Neurological: Negative. Hematological: Negative for adenopathy. There were no vitals taken for this visit. Head: Normocephalic, without obvious abnormality, atraumatic Eyes: PERRL, conjunctiva/corneas clear, EOM's intact, fundi benign, both eyes Ears: Normal TM's and external ear canals, both ears Nose: Nares normal, septum midline, mucosa normal, no drainage or sinus tenderness Throat: Lips, mucosa, and tongue normal; teeth and gums normal Neck: Supple, symmetrical, trachea midline, no adenopathy, thyroid: not enlarged, symmetric, no tenderness/mass/nodules, no carotid bruit or JVD Back: Symmetric, no curvature, ROM normal, no CVA tenderness Lungs: Clear to auscultation bilaterally, respirations unlabored Chest Wall: No tenderness or deformity Heart: Regular rate and rhythm, S1, S2 normal, no murmur, rub or gallop Abdomen: Soft, non-tender, bowel sounds active all four quadrants, no masses, no organomegaly Extremities: Extremities normal, atraumatic, no cyanosis or edema Pulses: 2+ and symmetric Skin: Skin color, texture, turgor normal, no rashes or lesions Lymph nodes: Cervical, supraclavicular, and axillary nodes normal Neurologic: Normal Pathology on the bronchoscopy specimen showed nondiagnostic material in the left hilar and subcarinal lymph nodes but Poorly Differentiated Adenocarcinoma in the 4R lymph node ? Molecular Genetics RESULTS CONSULTATION CASE Outside case labeled [id number] ([id number]), collection date 05/28/2017. [facility] Tracking #: [id number] Report to: [facility] Department of Pathology [address] [place] [address] ??[id number] , , Ext [phone] Submitted for molecular testing only. ??This case has not been reviewed in ??its ??entirety. SPECIMEN ANALYZED: ?? [id number] (outside [id number]) Analysis: ??Examination of DNA extracted from formalin-fixed paraffin-embedded tumor ??tissue for somatic mutation analysis. Results: ??The following gene variants were identified in the submitted tissue: CLINICALLY ACTIONABLE VARIANTS: BRAF: ??NEGATIVE EGFR: ??NEGATIVE KRAS: ??MUTATION c.35G> T p.G12V Exon 2 PIK3CA: ??NEGATIVE OTHER DETECTED VARIANTS: N/A Interpretation: ?? After review of the pathology report and slides, the specimen ([id number]) was selected for mutation analysis from a panel of 50 genes. ??The ??results of this test indicate that tumor cells comprising 80% of the tissue specimen ??analyzed were normal for hotspots in the BRAF, EGFR, PIK3CA, and 46 other genes. ?? 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 The G12V mutation ??suggests that this patient may not benefit from anti-EGFR therapy. Recent studies ??have shown that patients with G12V or G12C mutations have increased sensitivity ??to MEK inhibitors compared with tumors carrying other KRAS mutations (Rocco et al, ??2015). ??Therapeutic options related to the presence or absence of mutations should ??be carefully??assessed. Availability of other therapeutic indications and clinical ??trials may be possible. ? Surgical Pathology DIAGNOSIS CONSULTATION CASE Outside stained slide and 2 unstained slide(s) labeled [id number] ([id number]). Submitted for PD-L1 testing only. ??This case has not been reviewed in its ? entirety. Tumor Proportion Score (TPS): ? % Expression: 90% Interpretation Table: PD-L1 assay (22C3 pharmDX) for Keytruda (pembrolizumab) Tumor Proportion Score (TPS): ? <1% ?PD-L1 Negative ? >1% ? PD-L1 Expression ?? > 50% ? PD-L1 High Expression ONCBCN ONCOLOGY (AMB) 07/12/2017 Day, Cycle Day 1, Cycle 1 CARBOplatin (PARAPLATIN) IV 294 mg DOCEtaxel (TAXOTERE) IV 20 mg/m2/dose = 53 mg Laboratory today is r ONCBCN ONCOLOGY (AMB) 07/19/2017 Day, Cycle Day 8, Cycle 1 CARBOplatin (PARAPLATIN) IV 294 mg DOCEtaxel (TAXOTERE) IV 20 mg/m2/dose = 53 mg ONCBCN ONCOLOGY (AMB) 07/26/2017 Day, Cycle Day 15, Cycle 1 CARBOplatin (PARAPLATIN) IV 208 mg DOCEtaxel (TAXOTERE) IV 20 mg/m2/dose = 53 mg ONCN ONCOLOGY (AMB) 08/02/2017 Day, Cycle Day 22, Cycle 1 CARBOplatin (PARAPLATIN) IV 292 mg DOCEtaxel (TAXOTERE) IV 20 mg/m2/dose = 53 mg ONCBCN ONCOLOGY (AMB) 08/16/2017 Day, Cycle Day 29, Cycle 1 CARBOplatin (PARAPLATIN) IV 292 mg DOCEtaxel (TAXOTERE) IV 20 mg/m2/dose = 53 mg Laboratory today shows white count of 2.15 hemoglobin 10 hematocrit 31.3 and platelet count of 311,000. Absolute neutrophil count 1.41. CMP shows a sodium of 132 normal electrolytes with a potassium 4.4 creatinine of 1.16 ALP of 100 and calcium of 8.9 albumin is 2.6. Assessment/plan: Alin is doing exceptionally well and is fine today for his final systemic chemotherapy given concurrently with his radiation therapy. We will go ahead with that today and arrange for CT scan and labprior to visit in 3 weeks to consider starting Durvalumab. He does have some chemotherapy associatedanemia which is start recovering. His neutrophil count is adequate but low and that should get better as well. We did give him some written information on the new drug and discussed why we would recommend that. He does wish to proceed with treatment and does have a good understanding of the potential side effects but also the potential benefits. Chemotherapy teaching was done. Follow-up is arranged as noted. He will call if there is issues or problems in the interim. Jonathan Bishop MD - 09/11/2017 11:00 AM EDT Images from the original note were not included. Diagnosis: Stage IIIa adenocarcinoma right upper lobe EGFR and ALK negative but PDL-1 90% positive Subjective: Alin comes in today for consideration of his first infusion of durvalumab. We have discussed starting a checkpoint inhibitor posttreatment in view of the new data showing that patients that are treated in this way post response to chemoradiation therapy do much better with delayed recurrence and higher cure rates. Durvalumab was used and it was given every 2 weeks for a year. This is particularly attractive and him with a tumor that is highly PDL 1 positive. We have checked a CT scan and it does show some response to treatment although his primary tumor mass is about the same size. It is more distinct and is easier to measure it currently so I think it probably actually represents response. We do now have a baseline scan for further comparison now at [facility] Clinically he has responded but still has some dyspnea on exertion and cough on occasion so should be eligible for this. Review of systems is otherwise negative. Past medical history and social history are reviewed and unchanged from when I saw him last week. Past Medical History: Diagnosis Date ??? Adenocarcinoma, [...] [employer] for 8 months ??? 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 Smoking [...] activity change, fatigue and unexpected weight change. HENT: Negative for sore throat, mouth sores and trouble swallowing. Eyes: Negative. Respiratory: Negative for cough, shortness of breath and wheezing. Cardiovascular: Negative for chest pain, palpitations and leg swelling. Gastrointestinal: Negative for nausea, vomiting, abdominal pain, diarrhea, constipation and abdominal distention. Genitourinary: Negative for dysuria and difficulty urinating. Musculoskeletal: Negative. Skin: Negative. Neurological: Negative. Hematological: Negative for adenopathy. There were no vitals taken for this visit. Head: Normocephalic, without obvious abnormality, atraumatic Eyes: PERRL, conjunctiva/corneas clear, EOM's intact, fundi benign, both eyes Ears: Normal TM's and external ear canals, both ears Nose: Nares normal, septum midline, mucosa normal, no drainage or sinus tenderness Throat: Lips, mucosa, and tongue normal; teeth and gums normal Neck: Supple, symmetrical, trachea midline, no adenopathy, thyroid: not enlarged, symmetric, no tenderness/mass/nodules, no carotid bruit or JVD Back: Symmetric, no curvature, ROM normal, no CVA tenderness Lungs: Clear to auscultation bilaterally, respirations unlabored Chest Wall: No tenderness or deformity Heart: Regular rate and rhythm, S1, S2 normal, no murmur, rub or gallop Abdomen: Soft, non-tender, bowel sounds active all four quadrants, no masses, no organomegaly Extremities: Extremities normal, atraumatic, no cyanosis or edema Pulses: 2+ and symmetric Skin: Skin color, texture, turgor normal, no rashes or lesions Lymph nodes: Cervical, supraclavicular, and axillary nodes normal Neurologic: Normal Pathology on the bronchoscopy specimen showed nondiagnostic material in the left hilar and subcarinal lymph nodes but Poorly Differentiated Adenocarcinoma in the 4R lymph node ? Molecular Genetics RESULTS CONSULTATION CASE Outside case labeled [id number] ([id number]), collection date 05/28/2017. [facility] Tracking #: [id number] Report to: [facility] Department of Pathology [address] [place] [address], [place] ??[address] , , Ext [phone] Submitted for molecular testing only. ??This case has not been reviewed in ??its ??entirety. SPECIMEN ANALYZED: ?? [id number] (outside [id number]) Analysis: ??Examination of DNA extracted from formalin-fixed paraffin-embedded tumor ??tissue for somatic mutation analysis. Results: ??The following gene variants were identified in the submitted tissue: CLINICALLY ACTIONABLE VARIANTS: BRAF: ??NEGATIVE EGFR: ??NEGATIVE KRAS: ??MUTATION c.35G> T p.G12V Exon 2 PIK3CA: ??NEGATIVE OTHER DETECTED VARIANTS: N/A Interpretation: ?? After review of the pathology report and slides, the specimen ([id number]) was selected for mutation analysis from a panel of 50 genes. ??The ??results of this test indicate that tumor cells comprising 80% of the tissue specimen ??analyzed were normal for hotspots in the BRAF, EGFR, PIK3CA, and 46 other genes. ?? 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 The G12V mutation ??suggests that this patient may not benefit from anti-EGFR therapy. Recent studies ??have shown that patients with G12V or G12C mutations have increased sensitivity ??to MEK inhibitors compared with tumors carrying other KRAS mutations (Rocco et al, ??2015). ??Therapeutic options related to the presence or absence of mutations should ??be carefully??assessed. Availability of other therapeutic indications and clinical ??trials may be possible. ? Surgical Pathology DIAGNOSIS CONSULTATION CASE Outside stained slide and 2 unstained slide(s) labeled [id number] ([id number]). Submitted for PD-L1 testing only. ??This case has not been reviewed in its ? entirety. Tumor Proportion Score (TPS): ? % Expression: 90% Interpretation Table: PD-L1 assay (22C3 pharmDX) for Keytruda (pembrolizumab) Tumor Proportion Score (TPS): ? <1% ?PD-L1 Negative ? >1% ? PD-L1 Expression ?? > 50% ? PD-L1 High Expression ONCN ONCOLOGY (AMB) 07/12/2017 Day, Cycle Day 1, Cycle 1 CARBOplatin (PARAPLATIN) IV 294 mg DOCEtaxel (TAXOTERE) IV 20 mg/m2/dose = 53 mg Laboratory today is r ONCBCN ONCOLOGY (AMB) 07/19/2017 Day, Cycle Day 8, Cycle 1 CARBOplatin (PARAPLATIN) IV 294 mg DOCEtaxel (TAXOTERE) IV 20 mg/m2/dose = 53 mg ONCBCN ONCOLOGY (AMB) 07/26/2017 Day, Cycle Day 15, Cycle 1 CARBOplatin (PARAPLATIN) IV 208 mg DOCEtaxel (TAXOTERE) IV 20 mg/m2/dose = 53 mg ONCBCN ONCOLOGY (AMB) 08/02/2017 Day, Cycle Day 22, Cycle 1 CARBOplatin (PARAPLATIN) IV 292 mg DOCEtaxel (TAXOTERE) IV 20 mg/m2/dose = 53 mg ONCBCN ONCOLOGY (AMB) 08/16/2017 Day, Cycle Day 29, Cycle 1 CARBOplatin (PARAPLATIN) IV 292 mg DOCEtaxel (TAXOTERE) IV 20 mg/m2/dose = 53 mg ONCN ONCOLOGY (AMB) 08/21/2017 Day, Cycle Day 36, Cycle 1 CARBOplatin (PARAPLATIN) IV 300 mg DOCEtaxel (TAXOTERE) IV 20 mg/m2/dose = 53 mg Review of his CT scan of the chest done at [facility] on 09/05/2017 show that the primary mass is gone down in one direction but is a bit larger and the other however the margins are more distinct. Masses measuring 5.6 x 3.6 cm. There is a large node that is gone down in size from 14 mm to 11 mm and the adrenal mass has gone down in size from 4.2 x 3.7 cm to 4.1 x 3.6 cm. Laboratory is reviewed today. Electrolytes are normal potassium 4.1 creatinine 1.45 which is baseline for him. Liver tests are normal with an AST of 18 and ALT of 28 TSH is 2.01 and T4 9.5 CBC shows a white count of 8.48 hemoglobin 11.1 hematocrit 34.4 and platelet count of 119 Assessment/plan: Alin is shown a definite response to treatment although still has a lot of bulk to residual disease. It is early though after his treatment and one would expect tumors to continue to respond and shrink over the next month or 2. I do think however there is enough residual disease that considering heis a responder of one would consider a checkpoint inhibitor. He is also strongly PDL 1 positive. We will start durvalumab every 2 weeks today. I went over risks and side effects in detail today and they know to call if he is having any significant autoimmune effects. We will plan on repeating a scan if symptoms worsen or in 3 months time to see how things are going. He will call if there is issues orproblems in the interim. documented in this encounter Plan of Treatment Upcoming Encounters Date Type Specialty Care Team Description 01/19/2022 Office Visit Hematology and Oncology Loan Burton APRN [facility] HEMATOLOGY/[place] [address] 01/19/2022 Infusion Hematology and Oncology Canc eled (F-ARIA CANCEL) 01/25/2022 Hospital Gastroenterology Jose Clark MD [facility] [place] [address] 01/25/2022 Surgery Gastroenterology Jose Clark UPPE R GI R, MD ENDOSCOPY [facility] [place] [address] 01/26/2022 Office Visit Hematology and Oncology Fabian Cameron MD [facility] HEMATOLOGY/[place] [address] Loan Burton APRN [facility] HEMATOLOGY/[place] [address] 01/26/2022 Infusion Hematology and Oncology 02/02/2022 Office Visit Hematology and Oncology Fabian Cameron MD [facility] HEMATOLOGY/[place] [address] 02/02/2022 Infusion Hematology and Oncology 02/22/2022 Telephone Hematology and Oncology Siena Lloyd RD [facility] DRIVE [place] [address] Scheduled Procedures Name Priority Associated Diagnoses Date/Time EGD, UPPER GI ENDOSCOPY EGD with stent vs 2021 12:00 PM EDT cryotherapy. documented as of this encounter Visit Diagnoses Diagnosis Hypothyroidism due to drugs Other iatrogenic hypothyroidism Primary lung adenocarcinoma, right documented in this encounter Care Teams Senior Supply Chain Analyst Relationship Specialty Start Date End Date Farzaneh Winkler, NOLAN PCP - General General Internal Medicine 06/05/[address] [place] [id number] documented as of this encounter
--- OUTSIDE RECORDS SUMMARY | 2022-01-19 07:39 | XMS_ITS | Encounter Summary ---
:1950 Author Organization [facility] [place] [address] Care Team Providers Name Role Phone Farzaneh Winkler APRN Primary Care Provider Reason for Visit Reason Comments Chemotherapy Cycle 6 Day 1 Treatment/Therapy Plan Authorization (Routine) - Closed Specialty Diagnoses / Procedures Referred By Contact Refer red To Contact Diagnoses Primary lung adenocarcinoma, right Jonathan Bishop MD [facility] Hem Onc Infusion Procedures [place] CHEMOTHERAPY DRUG IMFINZI (DURVALUMAB) [address] [place] [address] 346 [address] [place] [address] Phone: Fax: Referral ID Status Reason Start Date Expiration Date Visits Requ ested Visits Authorized [id number] Closed 08/21/2017 09/07/2023 50 50 Encounter Details Date Type Department Care Team Description 11/22/2017 [facility] [address] [place], [place] [phone] Social History Tobacco Use Types Packs/Day [...] encounter Progress Notes Dina Miranda RN - 11/22/2017 11:30 AM EDT INFUSION THERAPY ADMINISTRATION NOTES DIAGNOSIS: NSCLC CYCLE #: 6 REASON FOR VISIT: Durvalumab infusion SUBJECTIVE: Pierre offers no complaints. OBJECTIVE: Seen by provider and ready to treat. LAB DATA: WNL for today's [...] and BSA by DINA MIRANDA RN and on-site pharmacist. REACTIONS (DESCRIPTION, TIME, INTERVENTION AND EFFECTIVENESS) none ASSESSMENT: Alin was awake, alert and tolerated treatment well. PLAN: Return to clinic in 2 weeks. documented in this encounter Plan of Treatment Upcoming Encounters Date Type Specialty Care Team Description 01/19/2022 Office Visit Hematology and Oncology Loan Burton, NOLAN [facility] HEMATOLOGY/[place] [address] 01/19/2022 Infusion Hematology and Oncology Canc eled (F-ARIA CANCEL) 01/25/2022 Hospital Gastroenterology Jose Clark MD [facility] [place] [address] 01/25/2022 Surgery Gastroenterology Jose Clark UPPE R GI R, MD ENDOSCOPY [facility] [place] [address] 01/26/2022 Office Visit Hematology and Oncology Fabian Cameron MD [facility] HEMATOLOGY/[place] [address] Loan Burton APRN [facility] HEMATOLOGY/[place] [address] 01/26/2022 Infusion Hematology and Oncology 02/02/2022 Office Visit Hematology and Oncology Fabian Cameron MD [facility] HEMATOLOGY/[place] [address] 02/02/2022 Infusion Hematology and Oncology 02/22/2022 Telephone Hematology and Oncology Siena Lloyd RD [facility] [address] [address] Scheduled Procedures Name Priority Associated Diagnoses Date/Time EGD, UPPER GI ENDOSCOPY EGD with stent vs 2021 12:00 PM EDT cryotherapy. documented as of this encounter Visit Diagnoses Diagnosis Primary lung adenocarcinoma, right documented in this encounter Administered Medications Inactive Administered Medications - up to 3 most recent administrations Medication Order MAR Action Action Date Dose Rate Site durvalumab (Imfinzi) 1,240 New Bag 11/22/2017 12:36 PM 1,240 mg 274.8 mL/hr mg in sodium chloride 0.9% EDT 274.8 mL infusion 1,240 mg, Intravenous, ONCE, 1 dose, On Stephanie 11/22/17 at 1300, Administer over 60 Minutes, No dose adjustments., Dose Ordered = 1329 mg (10 mg/kg). Pharmacist rounded dose per procedure. heparin, porcine 100 unit/mL flush 500 Given 11/22/2017 1:00 PM EDT 500 Units Units 500 Units, Intravenous, ONCE PRN, Starting on Stephanie 11/22/17 at 1133, Until Stephanie 11/22/17 at 1734, Line Care, Refer to Intravenous (IV) Procedure: Accessing Implanted Vascular Access Devices (484) procedure and/or Intravenous (IV) Job Aid: Adult Flushing & Catheter Care (1485) job aid for additional information regarding guidelines and administration., Routine sodium chloride 0.9 % flush 5-20 mL Given 11/22/2017 1:36 PM EDT 20 mLs 5-20 mL, Intravenous, EVERY 1 MIN PRN, Starting on Stephanie 11/22/17 at 1133, Until Stephanie 11/22/17 at 1734, Line Care, Flush pertains to all indwelling lines. Flush per protocol found in the job aid using the link provided on this medication record. Refer to Intravenous (IV) Job Aid: Adult Flushing & Catheter Care (7705) job aid for additional information regarding guidelines and administration., Routine documented in this encounter Care Teams Chart Computer Relationship Specialty Start Date End Date Farzaneh Winkler, AUTOMATIC FABRIC CUTTER PCP - General General Internal Medicine 06/05/[address] [place] [address] documented as of this encounter
--- OUTSIDE RECORDS SUMMARY | 2022-01-19 07:39 | XMS_ITS | Encounter Summary ---
:1950 Author Organization [facility] [place] [address] Care Team Providers Name Role Phone Farzaneh Winkler Daria FRANCISCO Primary Care Provider Encounter Details Date Type Department Care Team Description 08/23/2017 Notes Only Radiation Oncology at Alden Ramos MD [address] RADIATION ONCOLOGY [place], [place] [phone] [place] [address] (Wo rk) Social History Tobacco Use Types [...] documented as of this encounter Progress Notes Alden Ramos MD - 08/23/2017 12:54 PM EST Images from the original note were not included. RADIATION THERAPY COMPLETION NOTE IDENTIFICATION: Alin Meek is a 67 y.o. 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 Details of his radiation treatment course are as below. TREATMENT INTENT: Definitive (Curative) REFERRING PROVIDER: Dr. Winkler (PCP) RADIATION TREATMENT DETAILS: Treatment Site RUL and mediastinum Prescribed Dose 60 Gy in 30 fractions Treatment Start Date 07/11/17 Treatment Completion Date 08/22/17 Ground Products Director Newsome from Current Plan (minimum 60 Gy isodose volume shown): ?? SPECIAL TECHNICAL CONSIDERATIONS: The patient was simulated on a CT simulator. Customized newsome were designed to encompass the targetvolume and identify organs at risk and with the intent of minimizing normal tissue toxicity. TREATMENT TOLERANCE: With regard to side effects noted during radiotherapy, the patient tolerated treatment extremely well with no significant acute (Grade 3 or above) toxicity. TREATMENT RESPONSE: The patient's response to treatment was undetermined, as he was largely asymptomatic at the time of presentation. FOLLOWUP: Follow-up visit with Radiation Oncology in [facility] will be arranged on a prn basis as he will be following primarily with Dr. Bishop of Medical Oncology for systemic therapy; he has received instructions to call this office or seek the help of the local emergency room if any further problems should arise prior to followup. documented in this encounter Plan of Treatment Upcoming Encounters Date Type Specialty Care Team Description 01/19/2022 Office Visit Hematology and Oncology Loan Burton, NOLAN [facility] HEMATOLOGY/[place] [address] 01/19/2022 Infusion Hematology and Oncology Canc eled (F-ARIA CANCEL) 01/25/2022 Hospital Gastroenterology Jose Clark MD [facility] GASTROENTEROLOG [place] [address] 01/25/2022 Surgery Gastroenterology Jose Clark UPPE R GI R, MD ENDOSCOPY [facility] GASTROENTEROLOG [place] [address] 01/26/2022 Office Visit Hematology and Oncology Fabian Cameron MD [facility] DR HEMATOLOGY/[place] [address] Loan Burton APRN [facility] HEMATOLOGY/[place] [address] 01/26/2022 Infusion Hematology and Oncology 02/02/2022 Office Visit Hematology and Oncology Fabian Cameron MD [facility] HEMATOLOGY/[place] [address] 02/02/2022 Infusion Hematology and Oncology 02/22/2022 Telephone Hematology and Oncology Siena Lloyd RD [facility] DRIVE HEMATOLOGY [place] [address] Scheduled Procedures Name Priority Associated Diagnoses Date/Time EGD, UPPER GI ENDOSCOPY EGD with stent vs 2021 12:00 PM EDT cryotherapy. documented as of this encounter Visit Diagnoses Not on filedocumented in this encounter Care Teams Hydrostatic Tester Relationship Specialty Start Date End Date Farzaneh Winkler APRN PCP - General General Internal Medicine 06/05/[address] [place] [phone] documented as of this encounter
--- OUTSIDE RECORDS SUMMARY | 2022-01-19 07:39 | XMS_ITS | Encounter Summary ---
:1950 Author Organization [facility] [place] [address] Care Team Providers Name Role Phone Farzaneh Winkler APRN Primary Care Provider Reason for Visit Reason Comments Chemotherapy Cycle 11 Treatment/Therapy Plan Authorization (Routine) - Closed Specialty Diagnoses / Procedures Referred By Contact Refer red To Contact Diagnoses Primary lung adenocarcinoma, right Jonathan Bishop MD [facility] Hem Onc Infusion Procedures [place] CHEMOTHERAPY DRUG IMFINZI (DURVALUMAB) [address] [place] [address] [place] [address] Phone: Fax: Referral ID Status Reason Start Date Expiration Date Visits Requ ested Visits Authorized [id number] Closed 08/21/2017 09/07/2023 50 50 Encounter Details Date Type Department Care Team Description 01/31/2018 [facility] [address] [place] [phone] Social History Tobacco Use Types [...] Reading Time Taken Comments Blood Pressure 142/59 01/31/2018 1:01 PM EDT Pulse 105 01/31/2018 1:01 PM EDT Temperature 36.9 ??C (98.4 ??F) 01/31/2018 1:01 PM EDT Respiratory Rate 20 01/31/2018 1:01 PM EDT Oxygen Saturation 97% 01/31/2018 1:01 PM EDT Inhaled Oxygen Concentration - - Weight 138.8 kg (306 lb 1.6 oz) 01/31/2018 1:01 PM EDT Height 180 cm (5' 10.87) 01/31/2018 1:01 PM EDT Body Mass Index 42.85 01/31/2018 1:01 PM EDT documented in this encounter Plan of Treatment Upcoming Encounters Date Type Specialty Care Team Description 01/19/2022 Office Visit Hematology and Oncology Loan Burton, NOLAN [facility] HEMATOLOGY/[place] [address] 01/19/2022 Infusion Hematology and Oncology Canc eled (F-ARIA CANCEL) 01/25/2022 Hospital Gastroenterology Jose Clark MD [facility] [place] [address] 01/25/2022 Surgery Gastroenterology Jose Clark UPPE R GI R, MD ENDOSCOPY [facility] [place] [address] 01/26/2022 Office Visit Hematology and Oncology Fabian Cameron MD [facility] HEMATOLOGY/[place] [address] Loan Burton, LOG HAUL CHAIN FEEDER [facility] HEMATOLOGY/[place] [address] 01/26/2022 Infusion Hematology and Oncology 02/02/2022 Office Visit Hematology and Oncology Fabian Cameron MD [facility] HEMATOLOGY/[place] [address] 02/02/2022 Infusion Hematology and Oncology 02/22/2022 Telephone Hematology and Oncology Siena Lloyd RD [facility] DR[place] [address] Scheduled Procedures Name Priority Associated Diagnoses Date/Time EGD, UPPER GI ENDOSCOPY EGD with stent vs 2021 12:00 PM EDT cryotherapy. documented as of this encounter Visit Diagnoses Diagnosis Primary lung adenocarcinoma, right documented in this encounter Administered Medications Inactive Administered Medications - up to 3 most recent administrations Medication Order MAR Action Action Date Dose Rate Site durvalumab (Imfinzi) 1,240 New Bag 01/31/2018 2:32 PM EDT 1,240 mg 275 mL/hr mg in sodium chloride 0.9% 274.8 mL infusion 1,240 mg, Intravenous, ONCE, 1 dose, On Stephanie 01/31/18 at 1445, Administer over 60 Minutes, No dose adjustments. heparin, porcine 100 unit/mL flush 500 Given 01/31/2018 3:40 PM EDT 500 Units Units 500 Units, Intravenous, ONCE PRN, Starting on Stephanie 01/31/18 at 1320, Until Stephanie 01/31/18 at 1738, Line Care, Refer to Intravenous (IV) Procedure: Accessing Implanted Vascular Access Devices (064) procedure and/or Intravenous (IV) Job Aid: Adult Flushing & Catheter Care (9203) job aid for additional information regarding guidelines and administration., Routine sodium chloride 0.9 % flush 5-20 mL Given 01/31/2018 3:40 PM EDT 20 mLs 5-20 mL, Intravenous, EVERY 1 MIN PRN, Starting on Stephanie 01/31/18 at 1320, Until Stephanie 818 at 1738, Line Care, Flush pertains to all indwelling lines. Flush per protocol found in the job aid using the link provided on this medication record. Refer to Intravenous (IV) Job Aid: Adult Flushing & Catheter Care (7026) job aid for additional information regarding guidelines and administration., Routine documented in this encounter Care Teams Driver Relationship Specialty Start Date End Date Farzaneh Winkler, NOLAN PCP - General General Internal Medicine 06/05/[address] [place] [address] documented as of this encounter
--- OUTSIDE RECORDS SUMMARY | 2022-01-19 07:39 | XMS_ITS | Encounter Summary ---
:1950 Author Organization [facility] [place] [address] Care Team Providers Name Role Phone Farzaneh Winkler APRN Primary Care Provider Reason for Visit Reason Comments Lung Cancer Encounter Details Date Type Department Care Team Description 01/03/2018 Office Visit Hematology/Oncology Jonathan Bishop, Hyp othyroidism due to drugs; at [facility] Primary lung adenocarcinoma, right [address] [place], [place] [address] [phone] Social History Tobacco Use Types Packs/Day Years [...] Sign Reading Time Taken Comments Blood Pressure 134/60 01/03/2018 12:34 PM EDT Pulse 93 01/03/2018 12:34 PM EDT Temperature 36.8 ??C (98.2 ??F) 01/03/2018 12:34 PM EDT Respiratory Rate 20 01/03/2018 12:34 PM EDT Oxygen Saturation 96% 01/03/2018 12:34 PM EDT Inhaled Oxygen Concentration - - Weight 139.3 kg (307 lb) 01/03/2018 12:34 PM EDT Height 180 cm (5' 10.87) 01/03/2018 12:34 PM EDT sandeep stephenson Body Mass Index 42.98 01/03/2018 12:34 PM EDT documented in this encounter Progress Notes Jonathan Bishop MD - 01/03/2018 12:30 PM EDT Images from the original note were not included. Diagnosis: Stage IIIa adenocarcinoma right upper lobe EGFR and ALK negative but PDL-1 90% positive Subjective: Alin comes in today for his 9th infusion of durvalumab. He continues to tolerate the infusions well without difficulty. He is not having any diarrhea no skin problems no dry mouth or other difficulties. He is not coughing and really feels well overall. Review of systems is basically negative. Past medical history and social history are reviewed and unchanged from when I saw him 2 weeks ago. Past Medical History: Diagnosis Date ??? Adenocarcinoma, [...] [employer] for 8 months ??? 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 Smoking [...] Neurological: Negative. Hematological: Negative for adenopathy. BP 134/60 (Patient Position: Sitting) Pulse 93 Temp 36.8 ??C (98.2 ??F) (Oral) Resp 20 Ht 180 cm (5' 10.87) Comment: copied Wt (!) 139.3 kg (307 lb) SpO2 96% BMI 42.98 kg/m2 Head: Normocephalic, without obvious abnormality, atraumatic Eyes: [...] Lungs: Clear to auscultation bilaterally, respirations unlabored although his breath sounds are diminished bilaterally I do hear good breath sounds at both bases Chest Wall: No tenderness or deformity Heart: [...] Genetics RESULTS CONSULTATION CASE Outside case labeled [id number] ([id number]), collection date 05/28/2017. [facility] Tracking #: [id number] Report to: [facility] Department of Pathology [address] [place] [address] ??[phone] , , Ext [phone] Submitted for molecular testing only. ??This case has not been reviewed in ??its ??entirety. SPECIMEN ANALYZED: ?? [id number] (outside [id number]) Analysis: ??Examination of DNA extracted from formalin-fixed paraffin-embedded tumor ??tissue for somatic mutation analysis. Results: ??The following gene variants were identified in the submitted tissue: CLINICALLY ACTIONABLE VARIANTS: BRAF: ??NEGATIVE EGFR: ??NEGATIVE KRAS: ??MUTATION c.35G> T p.G12V Exon 2 PIK3CA: ??NEGATIVE OTHER DETECTED VARIANTS: N/A Interpretation: ?? After review of the pathology report and slides, the specimen ([id number]) was selected for mutation analysis from [...] stained slide and 2 unstained slide(s) labeled [id number] ([id number]). Submitted for PD-L1 testing only. ??This case [...] mg/m2/dose = 53 mg ONCBCN ONCOLOGY (AMB) 08/21/2017 Day, Cycle Day 36, Cycle 1 CARBOplatin (PARAPLATIN) IV 300 mg DOCEtaxel (TAXOTERE) IV 20 mg/m2/dose = 53 mg ONCBCN ONCOLOGY (AMB) 09/11/2017 Day, Cycle Day 1, Cycle 1 CARBOplatin (PARAPLATIN) IV DOCEtaxel (TAXOTERE) IV durvalumab (Imfinzi) IV 1,240 mg ONCBCN ONCOLOGY (AMB) 09/27/2017 Day, Cycle Day 1, Cycle 2 CARBOplatin (PARAPLATIN) IV DOCEtaxel (TAXOTERE) IV durvalumab (Imfinzi) IV 1,240 mg ONCBCN ONCOLOGY (AMB) 10/11/2017 10/25/2017 11/08/2017 Day, Cycle Day 1, Cycle 3 Day 1, Cycle 4 Day 1, Cycle 5 CARBOplatin (PARAPLATIN) IV DOCEtaxel (TAXOTERE) IV durvalumab (Imfinzi) IV 1,240 mg 1,240 mg 1,240 mg ONCBCN ONCOLOGY (AMB) 11/22/2017 Day, Cycle Day 1, Cycle 6 CARBOplatin (PARAPLATIN) IV DOCEtaxel (TAXOTERE) IV durvalumab (Imfinzi) IV 1,240 mg ONCBCN ONCOLOGY (AMB) 12/06/2017 Day, Cycle Day 1, Cycle 7 CARBOplatin (PARAPLATIN) IV DOCEtaxel (TAXOTERE) IV durvalumab (Imfinzi) IV 1,240 mg ONCBCN ONCOLOGY (AMB) 12/20/2017 Day, Cycle Day 1, Cycle 8 CARBOplatin (PARAPLATIN) IV DOCEtaxel (TAXOTERE) IV durvalumab (Imfinzi) IV 1,240 mg Review of his CT scan of the chest done at [facility] on 09/05/2017 show that the primary mass is gone downin one direction but is a bit larger and the other however the margins are more distinct. Masses measuring 5.6 x 3.6 cm. There is a large node that is gone down in size from 14 mm to 11 mm and the adrenal mass has gone down in size from 4.2 x 3.7 cm to 4.1 x 3.6 cm. Laboratory today shows shows a white count of 11.75 hemoglobin 12.3 hematocrit 39.5 platelets 340,000. CMP shows normal electrolytes a creatinine of 1.34 a AST of 20 ALT of 22 bilirubin 0.3 TSH 1.74 and T4 9.1. Calcium is 8.8 Assessment/plan: Alin is tolerating the checkpoint inhibitor quite well. We will go ahead with infusion today and see him back in 2 weeks for another infusion. There is no evidence at all for any autoimmune effects with no GI toxicity skin toxicity or any endorgan problems notable on lab. His chemotherapies associated anemia has continued to improve and is near normal at the current time. He will call if there is issues or problems in the interim documented in this encounter Plan of Treatment Upcoming Encounters Date Type Specialty Care Team Description 01/19/2022 Office Visit Hematology and Oncology Loan Burton, NOLAN [facility] HEMATOLOGY/[place] [address] 01/19/2022 Infusion Hematology and Oncology Canc eled (F-ARIA CANCEL) 01/25/2022 Hospital Gastroenterology Jose Clark MD [facility] [place] [address] 01/25/2022 Surgery Gastroenterology Jose Clark UPPE R GI R, MD ENDOSCOPY [facility] [place] [address] 01/26/2022 Office Visit Hematology and Oncology Fabian Cameron MD [facility] HEMATOLOGY/[place] [address] Loan Burton, NOLAN [facility] HEMATOLOGY/[place] [address] 01/26/2022 Infusion Hematology and Oncology 02/02/2022 Office Visit Hematology and Oncology Fabian Cameron MD [facility] HEMATOLOGY/[place] [address] 02/02/2022 Infusion Hematology and Oncology 02/22/2022 Telephone Hematology and Oncology Siena Lloyd RD [facility] DRIVE [place] [address] Scheduled Procedures Name Priority Associated Diagnoses Date/Time EGD, UPPER GI ENDOSCOPY EGD with stent vs 2021 12:00 PM EDT cryotherapy. documented as of this encounter Procedures Procedure Name Priority Date/Time Associated Diagnosis Comme nts LAB SCAN 01/03/2018 12:00 AM Results for this EDT procedure are i n the results section . documented in this encounter Results SCAN DOC: LAB (01/03/2018 12:00 AM EDT) Narrative 01/03/2018 12:00 AM EDT This result has an attachment that is no t available. Ordered by an unspecified provider. 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
--- OUTSIDE RECORDS SUMMARY | 2022-01-19 07:39 | XMS_ITS | Encounter Summary ---
:1950 Author Organization [facility] [place] [address] Care Team Providers Name Role Phone Farzaneh Winkler APRN Primary Care Provider Reason for Visit Reason Comments Chemotherapy Cycle 13 Durvalumab Treatment/Therapy Plan Authorization (Routine) - Closed Specialty Diagnoses / Procedures Referred By Contact Refer red To Contact Diagnoses Primary lung adenocarcinoma, right Jonathan Bishop MD [facility] Hem Onc Infusion Procedures [place] CHEMOTHERAPY DR[place] IMFINZI (DURVALUMAB) [address] [place] [address] [address] [place] [address] Phone: Fax: Referral ID Status Reason Start Date Expiration Date Visits Requ ested Visits Authorized [id number] Closed 08/21/2017 09/07/2023 50 50 Encounter Details Date Type Department Care Team Description 02/28/2018 [facility] [address] [place] [phone] Social History Tobacco Use Types [...] encounter Progress Notes Tena Leblanc RN - 02/28/2018 11:30 AM EDT INFUSION THERAPY ADMINISTRATION NOTES DIAGNOSIS: NSCLC CYCLE #13 REASON FOR VISIT: Durvalumab infusion SUBJECTIVE: Pierre offers no complaints. OBJECTIVE LAB DATA: WNL for today's infusion, reviewed by MD in clinic IV ACCESS: Port already accessed [...] [facility] HEMATOLOGY/[place] [address] 01/19/2022 Infusion Hematology and Oncology Canc eled (F-ARIA CANCEL) 01/25/2022 Hospital Gastroenterology Jose Clark MD [facility] [place] [address] 01/25/2022 Surgery Gastroenterology Jose Clark UPPE R GI R, MD ENDOSCOPY [facility] [place] [address] 01/26/2022 Office Visit Hematology and Oncology Fabian Cameron MD [facility] DR HEMATOLOGY/[place] [address] Loan Burton APRN [facility] DR HEMATOLOGY/[place] [address] 01/26/2022 Infusion Hematology and Oncology 02/02/2022 Office Visit Hematology and Oncology Fabian Cameron MD [facility] HEMATOLOGY/[place] [address] 02/02/2022 Infusion Hematology and Oncology 02/22/2022 Telephone Hematology and Oncology Siena Lloyd RD [facility] DRIVE [place] [address] Scheduled Procedures Name Priority Associated Diagnoses Date/Time EGD, UPPER GI ENDOSCOPY EGD with stent vs 2021 12:00 PM EDT cryotherapy. documented as of this encounter Procedures Procedure Name Priority Date/Time Associated Diagnosis Comme nts LAB SCAN 02/28/2018 12:00 AM Results for this EDT procedure are i n the results section . documented in this encounter Results SCAN DOC: LAB (02/28/2018 12:00 AM EDT) Narrative 02/28/2018 12:00 AM EDT This result has an [...] Rate Site durvalumab (Imfinzi) 1,240 New Bag 02/28/2018 12:26 PM EDT 1,240 m g 275 mL/hr mg in sodium chloride 0.9% 274.8 mL infusion 1,240 mg, Intravenous, ONCE, 1 dose, On Stephanie 02/28/18 at 1300, Administer over 60 Minutes, No dose adjustments. heparin, porcine 100 unit/mL flush 500 Given 02/28/2018 1:30 PM EDT 500 Units Units 500 Units, Intravenous, ONCE PRN, Starting on Stephanie 02/28/18 at 1140, Until Stephanie 02/28/18 at 1834, Line Care, Refer to Intravenous (IV) Procedure: Accessing Implanted Vascular Access Devices (654) procedure and/or Intravenous (IV) Job Aid: Adult Flushing & Catheter Care (9723) job aid for additional information regarding guidelines and administration., Routine sodium chloride 0.9 % flush 5-20 mL Given 02/28/2018 1:30 PM EDT 20 mLs 5-20 mL, Intravenous, EVERY 1 MIN PRN, Starting on Stephanie 02/28/18 at 1140, Until Stephanie 02/28/18 at 1834, Line Care, Flush pertains to all indwelling lines. Flush per protocol found in the job aid using the link provided on this medication record. Refer to Intravenous (IV) Job Aid: Adult Flushing & Catheter Care (8113) job aid for additional information regarding guidelines and administration., Routine documented in this encounter Care Teams Senior Foreman Relationship Specialty Start Date End Date Farzaneh Winkler, DIGITAL MARKETER PCP - General General Internal Medicine 06/05/[address] [place] [address] documented as of this encounter
--- OUTSIDE RECORDS SUMMARY | 2022-01-19 07:39 | XMS_ITS | Encounter Summary ---
:1950 Author Organization [facility] [place] [address] Care Team Providers Name Role Phone Farzaneh Winkler APRN Primary Care Provider Reason for Visit Reason Comments Lung Cancer Encounter Details Date Type Department Care Team Description 11/22/2017 Office Visit Hematology/Oncology Jonathan Bishop, [facility] lung adenocarcinoma, right; at [facility] Hypothyroidism due to drugs [address] [facility], [place] [address] [phone] Social History Tobacco Use Types Packs/Day Years [...] Sign Reading Time Taken Comments Blood Pressure 114/59 11/22/2017 10:51 AM EDT Pulse 103 11/22/2017 10:51 AM EDT Temperature 36.6 ??C (97.9 ??F) 11/22/2017 10:51 AM EDT Respiratory Rate 20 11/22/2017 10:51 AM EDT Oxygen Saturation 97% 11/22/2017 10:51 AM EDT Inhaled Oxygen Concentration - - Weight 134.7 kg (297 lb) 11/22/2017 10:51 AM EDT Height 180 cm (5' 10.87) 11/22/2017 10:51 AM EDT sandeep stephenson Body Mass Index 41.58 11/22/2017 10:51 AM EDT documented in this encounter Progress Notes Jonathan Bishop MD - 11/22/2017 11:00 AM EDT Images from the original note were not included. 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 Is actually tolerating the treatment quite well. He has some back discomfort but that has been a long-standing problem for him and there is nothing different about it that makes one have any concern. Overall he is feeling better. His breathing is fine a bit of a cough still but nothing getting worse and nothing productive. He has no hemoptysis. His bowels are doing well he has no stomatitis no sore mouth no arthritis symptoms other than his back discomfort. He is not having any skin issues. Review of systems is otherwise negative Past medical history and social history are [...] [employer] for 8 months ??? 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 Smoking [...] Neurological: Negative. Hematological: Negative for adenopathy. BP 114/59 (Patient Position: Sitting) Pulse (!) 103 Temp 36.6 ??C (97.9 ??F) (Oral) Resp 20 Ht 180 cm (5' 10.87) Comment: copied Wt 134.7 kg (297 lb) SpO2 97% BMI 41.58 kg/m2 Head: Normocephalic, without obvious abnormality, atraumatic [...] Genetics RESULTS CONSULTATION CASE Outside case labeled [id number] ([id number]), collection date 05/28/2017. [facility] [place] #: [id number] Report to: [facility] Department of Pathology [address] [place] [address] ??[id number] , , Ext Submitted for molecular testing only. ??This case has not been reviewed in ??its ??entirety. SPECIMEN ANALYZED: ?? [id number] ([id number]) Analysis: ??Examination of DNA extracted from formalin-fixed paraffin-embedded tumor ??tissue for somatic mutation analysis. Results: ??The following gene variants were identified in the submitted tissue: CLINICALLY ACTIONABLE VARIANTS: BRAF: ??NEGATIVE EGFR: ??NEGATIVE KRAS: ??MUTATION c.35G> T p.G12V Exon 2 PIK3CA: ??NEGATIVE OTHER DETECTED VARIANTS: N/A Interpretation: ?? After review of the pathology report and slides, the specimen ( [id number]) was selected for mutation analysis from [...] stained slide and 2 unstained slide(s) labeled [id number] ([id number]). Submitted for PD-L1 testing only. ??This case [...] IV 1,240 mg 1,240 mg 1,240 mg Review of his CT scan of the chest done at [facility] on 09/05/2017 show that the primary mass [...] 3.7 cm to 4.1 x 3.6 cm. The patient's laboratory is reviewed. His white count is 11.1 hemoglobin 11.2 hematocrit 36.5 and platelets are 384 neutrophil count 8.8 CMP shows normal electrolytes sodium 136 creatinine 1.18 ALP of 82 with an AST of 14 and an ALT of 17 TSH is 1.11 and T4 7.9 Assessment/plan: Alin is tolerating his checkpoint inhibitor quite well. He has no autoimmune effects at all. His chemotherapy associated anemia now that he is off chemotherapy is slowly improving. Thyroid function is fine and we discussed restaging him after a couple more months. Really treating him try to improvehis chances of cure and not for actual progressive recurrent cancer so I would favor basically scanning him as we would routinely post combined chemoradiation therapy. He will call if there is any issues or problems in the interim but otherwise we will see him back in 2 Weeks with routine laboratory and thyroid studies documented in this encounter Plan of Treatment Upcoming Encounters Date Type Specialty Care Team Description 01/19/2022 Office Visit Hematology and Oncology Loan Burton APRN [facility] HEMATOLOGY/[place] [address] 01/19/2022 Infusion Hematology and Oncology Canc eled (F-ARIA CANCEL) 01/25/2022 Hospital Gastroenterology Jose Clark MD [facility] [place] [address] 01/25/2022 Surgery Gastroenterology Jose Clark UPPE R GI R, MD ENDOSCOPY [facility] [place] [address] 01/26/2022 Office Visit Hematology and Oncology Fabian Cameron MD [facility] HEMATOLOGY/[place] [address] Loan Burton APRN [facility] HEMATOLOGY/[place] [address] 01/26/2022 Infusion Hematology and Oncology 02/02/2022 Office Visit Hematology and Oncology Fabian Cameron MD [facility] HEMATOLOGY/[place] [address] 02/02/2022 Infusion Hematology and Oncology 02/22/2022 Telephone Hematology and Oncology Prema, Siena Samayoa, [facility] [place] [address] Scheduled Procedures Name Priority Associated Diagnoses Date/Time EGD, UPPER GI ENDOSCOPY EGD with stent vs 2021 12:00 PM EDT cryotherapy. documented as of this encounter Procedures Procedure Name Priority Date/Time Associated Diagnosis Comme nts LAB SCAN 11/22/2017 12:00 AM Results for this EDT procedure are i n the results section . documented in this encounter Results SCAN DOC: LAB (11/22/2017 12:00 AM EDT) Narrative 11/22/2017 12:00 AM EDT This result has an attachment that is no t available. Ordered by an unspecified provider. 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
--- OUTSIDE RECORDS SUMMARY | 2022-01-19 07:39 | XMS_ITS | Encounter Summary ---
:1950 Author Organization [facility] [place] [address] Care Team Providers Name Role Phone Farzaneh Winkler APRN Primary Care Provider Reason for Visit Reason Comments Chemotherapy Durvalumab, Cycle 2, Day 1 Treatment/Therapy Plan Authorization (Routine) - Closed Specialty Diagnoses / Procedures Referred By Contact Refer red To Contact Diagnoses Primary lung adenocarcinoma, right Jonathan Bishop MD [facility] Hem Onc Infusion Procedures [place] CHEMOTHERAPY DRUG IMFINZI (DURVALUMAB) [address] [place] [address] 9[address] [place] [address] Phone: Fax: Referral ID Status Reason Start Date Expiration Date Visits Requ ested Visits Authorized [id number] Closed 08/21/2017 09/07/2023 50 50 Encounter Details Date Type Department Care Team Description 09/27/2017 Infusion Hematology Oncology at [facility] lung adenocarcinoma, [facility] right [address] [place] [phone] Social History Tobacco Use Types [...] encounter Progress Notes Carrie Chery RN - 09/27/2017 1:00 PM EDT INFUSION THERAPY ADMINISTRATION NOTES DIAGNOSIS: NSCLC CYCLE #: Cycle 2, Day 1 REASON FOR VISIT: Durvalumab infusion SUBJECTIVE: Pierre offers no complaints. OBJECTIVE: Seen by provider. Ready to treat. LAB DATA: WNL for today's infusion. IV ACCESS: Mediport Pre administration: Chemotherapy orders independently verified for drug name, route, and dosage per patient's height, weight and BSA by Carrie Chery, MADISYN and Sonny Velázquez [facility]. REACTIONS (DESCRIPTION, TIME, INTERVENTION AND EFFECTIVENESS) none [...] APRN [facility] HEMATOLOGY/[place] [address] 01/19/2022 Infusion Hematology and Oncology Canc eled (F-ARIA CANCEL) 01/25/2022 Hospital Gastroenterology Jose Clark MD [facility] [place] [address] 01/25/2022 Surgery Gastroenterology Jose Clark UPPE R GI R, MD ENDOSCOPY [facility] [place] [address] 01/26/2022 Office Visit Hematology and Oncology Fabian Cameron MD [facility] HEMATOLOGY/[place] [address] Loan Burton APRN [facility] HEMATOLOGY/[place] [address] 01/26/2022 Infusion Hematology and Oncology 02/02/2022 Office Visit Hematology and Oncology Fabian Cameron MD [facility] HEMATOLOGY/[place] [address] 02/02/2022 Infusion Hematology and Oncology 02/22/2022 Telephone Hematology and Oncology Siena Lloyd RD [facility] DRIVE HEMATOLOGY [place] [address] Scheduled Procedures Name Priority Associated Diagnoses Date/Time EGD, UPPER GI ENDOSCOPY EGD with stent vs 2021 12:00 PM EDT cryotherapy. documented as of this encounter Visit Diagnoses Diagnosis Primary lung adenocarcinoma, right documented in this encounter Administered Medications Inactive Administered Medications - up to 3 most recent administrations Medication Order MAR Action Action Date Dose Rate Site durvalumab (Imfinzi) 1,240 New Bag 09/27/2017 1:57 PM EDT 1,240 mg 274.8 mL/hr mg in sodium chloride 0.9% 274.8 mL infusion 1,240 mg, Intravenous, ONCE, 1 dose, On Stephanie 09/27/17 at 1415, Administer over 60 Minutes, No dose adjustments. heparin, porcine 100 unit/mL flush 500 Given 09/27/2017 3:00 PM EDT 500 Units Units 500 Units, Intravenous, ONCE PRN, Starting on Stephanie 09/27/17 at 1302, Until Stephanie 09/27/17 at 1704, Line Care, Refer to Intravenous (IV) Procedure: Accessing Implanted Vascular Access Devices (134) procedure and/or Intravenous (IV) Job Aid: Adult Flushing & Catheter Care (9424) job aid for additional information regarding guidelines and administration., Routine sodium chloride 0.9 % flush 5-20 mL Given 09/27/2017 3:00 PM EDT 20 mLs 5-20 mL, Intravenous, EVERY 1 MIN PRN, Starting on Stephanie 09/27/17 at 1302, Until Stephanie 09/27/17 at 1704, Line Care, Flush pertains to all indwelling lines. Flush per protocol found in the job aid using the link provided on this medication record. Refer to Intravenous (IV) Job Aid: Adult Flushing & Catheter Care (8510) job aid for additional information regarding guidelines and administration., Routine documented in this encounter Care Teams Bone Grinder Relationship Specialty Start Date End Date Farzaneh Winkler APRN PCP - General General Internal Medicine 06/05/[address] [place] [id number] documented as of this encounter
--- OUTSIDE RECORDS SUMMARY | 2022-01-19 07:39 | XMS_ITS | Encounter Summary ---
:1950 Author Organization [facility] [place] [address] Care Team Providers Name Role Phone Farzaneh Winkler Daria FRANCISCO Primary Care Provider Encounter Details Date Type Department Care Team Description 11/08/2017 Clinical Support Hematology/Oncology at [facility] [place] [place] [address] Social History Tobacco Use Types [...] encounter Progress Notes Adrian Gold RD - 11/08/2017 11:30 AM EDT [facility] Dietitian Follow Up Assessment Seen By: Katt Gold, , RD, WRIST CLOSER, LD Referred by: BROOKE Miranda Reason for visit: new lung start, diarrhea Patient and diagnosis: Alin comes in today for week 3 carboplatin and docetaxel and the concurrent treatment with radiation therapy of his lung cancer. Assessment: HPI: Patient Active Problem List Diagnosis Code ??? Mass of right lung R91.8 ??? 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 Hypothyroidism due to drugs E03.2 Meds: reviewed Labs: reviewed, NA 132 Ht: Oncology Vitals 07/26/2017 Height 180 cm Wt: 3.2% decr in 2.5 weeks; Moderate Wt Readings from Last 3 Encounters: 11/08/17 132.9 kg (293 lb) 10/25/17 134.3 kg (296 lb) 10/11/17 130.6 kg (288 lb) Wt Hx: UBW: % UBW: IBW: [...] Snacks: back to chips and dips Fluids: mostly diet gingerale or coke with 48-60 oz water/d. 2, 32 ounce bottle of powerade, water: 1 cup or more/d. Supplements/Frequency: Denies ___ Ensure/Plus ___ Boost/Plus - thinking about getting him some ___ CIB - has in the past ___ Other: Teas, vitamins, or other nutritional supplements: one/d for men Food allergies or avoidances: doesn't like avocado Appetite: likes spicy stuff, but gets heartburn. Nausea: +, compazine on hand. Vomiting: denies Chewing: deines Dentition: Swallowing: denies Taste Changes: Too good. Bowels: deniees Food availability/purchasing, meal planning and preparation: He usually did, and does more now. Depression: Social Support: Economic Issues: Physical Activity: plays solitaire and poker Level of Motivation/Readiness to Change: Nutrition Diagnosis: [facility]. 08/03/17: Weight down minimally. Nausea improved with [...] if diarrhea is a viral component, as house hold had GI bug. Will follow up in [...] Monitoring and Evaluation: Will follow up with Mr. Meek in 8-12 week (s) to re-evaluate. I have provided him with my card and contact information should he have any questions in the mean time. Thank you for this consult. documented in this encounter Plan of Treatment Upcoming Encounters Date Type Specialty Care Team Description 01/19/2022 Office Visit Hematology and Oncology Loan Burton, [place] [facility] HEMATOLOGY/ONCO [place]NYY DEPT. [place], [place] [id number] 01/19/2022 Infusion Hematology and Oncology Canc eled (F-ARIA CANCEL) 01/25/2022 Hospital Gastroenterology Jose Clark MD [facility] [place] [address] 01/25/2022 Surgery Gastroenterology Jose Clark EGD, LOLA Yates MD ENDOSCOPY [facility] [place] [address] 01/26/2022 Office Visit Hematology and Oncology Fabian Cameron MD [facility] DR HEMATOLOGY/[place] [address] Loan Burton APRN [facility] HEMATOLOGY/[place] [address] 01/26/2022 Infusion Hematology and Oncology 02/02/2022 Office Visit Hematology and Oncology Fabian Cameron MD [facility] HEMATOLOGY/[place] [address] 02/02/2022 Infusion Hematology and Oncology 02/22/2022 Telephone Hematology and Oncology Siena Lloyd RD [facility] DRIVE [place]OLOGY [place] [address] Scheduled Procedures Name Priority Associated Diagnoses Date/Time EGD, UPPER GI ENDOSCOPY EGD with stent vs 2021 12:00 PM EDT cryotherapy. documented as of this encounter Visit Diagnoses Diagnosis Dietary counseling Dietary surveillance and counseling documented in this encounter Care Teams Table And Desk Finisher Relationship Specialty Start Date End Date Farzaneh Winkler, RESEARCH SUPPORT SPECIALIST PCP - General General Internal Medicine 06/05/[address] [place] [id number] documented as of this encounter
--- OUTSIDE RECORDS SUMMARY | 2022-01-19 07:39 | XMS_ITS | Encounter Summary ---
:1950 Author Organization [facility] [place] [address] Care Team Providers Name Role Phone Peterson Farzaneh Huff APRN Primary Care Provider Encounter Details Date Type Department Care Team Description 08/22/2017 Notes Only Radiation Oncology at Meredith Benton RN [address] [phone] Social History Tobacco Use [...] documented as of this encounter Progress Notes Meredith Benton RN - 08/22/2017 11:13 AM EST Radiation Oncology Nursing Completion of Treatment Note Pt completed 30 Fxs totaling 6000 cGY to RUL/mediastinum for lung cancer. . Side effects/problems noted today: Continues to feel pretty well overall. Manageable fatigue. Esophagitis improved, now denies pain. States that he does continue to eat softer bland foods and avoiding spicy foods that he loves for now. Using carafate prn but not requiring BMX. No new cough or shortness of breath. Stable dyspnea on exertion. Teaching and discharge instructions reviewed: Instructed to continue as he is with avoiding spicy foods, bland diet until healed from xrt. . He is aware that effects of radiation will continue for a few weeks after today. Instructed to call with any new or worsening symptoms. Expected follow up/referrals: Per Dr. Ramos. Patient has our contact numbers Patient/family response to instructions: Patient verbalized understanding of these instructions. documented in this encounter Plan of Treatment Upcoming Encounters Date Type Specialty Care Team Description 01/19/2022 Office Visit Hematology and Oncology Loan Burton APRN [facility] HEMATOLOGY[place] [address] 01/19/2022 Infusion Hematology and Oncology Canc eled (F-ARIA CANCEL) 01/25/2022 Hospital Gastroenterology Jose Clark MD [facility] [place] [address] 01/25/2022 Surgery Gastroenterology Jose Clark UPPE R GI R, MD ENDOSCOPY [facility] [place] [address] 01/26/2022 Office Visit Hematology and Oncology Fabian Cameron MD [facility] HEMATOLOGY/[place] [address] Loan Burton APRN [facility] HEMATOLOGY/[place] [address] 01/26/2022 Infusion Hematology and Oncology 02/02/2022 Office Visit Hematology and Oncology Fabian Cameron MD [facility] HEMATOLOGY/[place] [address] 02/02/2022 Infusion Hematology and Oncology 02/22/2022 Telephone Hematology and Oncology Siena Lloyd RD [facility] [place] [address] Scheduled Procedures Name Priority Associated Diagnoses Date/Time EGD, UPPER GI ENDOSCOPY EGD with stent vs 2021 12:00 PM EDT cryotherapy. documented as of this encounter Visit Diagnoses Not on filedocumented in this encounter Care Teams Criminal Defense Attorney Relationship Specialty Start Date End Date Farzaneh Winkler APRN PCP - General General Internal Medicine 06/05/[address] [place] [address] documented as of this encounter
--- OUTSIDE RECORDS SUMMARY | 2022-01-19 07:39 | XMS_ITS | Encounter Summary ---
:1950 Author Organization [facility] [place] [address] Care Team Providers Name Role Phone Farzaneh Winkler APRN Primary Care Provider Reason for Visit Reason Comments Chemotherapy Cycle 4, Day 1 -- Durvalumab Treatment/Therapy Plan Authorization (Routine) - Closed Specialty Diagnoses / Procedures Referred By Contact Refer red To Contact Diagnoses Primary lung adenocarcinoma, right Jonathan Bishop MD [facility] Hem Onc Infusion Procedures DE CHEMOTHERAPY DRUG IMFINZI (DURVALUMAB) [address] [place] [address] 831 [address] [place] [address] Phone: Fax: Referral ID Status Reason Start Date Expiration Date Visits Requ ested Visits Authorized [id number] Closed 08/21/2017 09/07/2023 50 50 Encounter Details Date Type Department Care Team Description 10/25/2017 Infusion Hematology Oncology at [facility] lung adenocarcinoma, [facility] right [address] [place] [address] [phone] Social History Tobacco Use Types [...] Sign Reading Time Taken Comments Blood Pressure 140/65 10/25/2017 1:48 PM EDT Pulse 86 10/25/2017 1:48 PM EDT Temperature 36.3 ??C (97.3 ??F) 10/25/2017 1:48 PM EDT Respiratory Rate 22 10/25/2017 1:48 PM EDT Oxygen Saturation 98% 10/25/2017 1:48 PM EDT Inhaled Oxygen Concentration - - Weight 134.3 kg (296 lb) 10/25/2017 1:48 PM EDT Height 180 cm (5' 10.87) 10/25/2017 1:48 PM EDT copied Body Mass Index 41.44 10/25/2017 1:48 PM EDT documented in this encounter Progress Notes Cassi Martinez RN - 10/25/2017 2:00 PM EDT INFUSION THERAPY ADMINISTRATION NOTES DIAGNOSIS: NSCLC CYCLE #: Cycle 4, day 1 -- Durvalumab REASON FOR VISIT: To receive chemotherapy. SUBJECTIVE: Alin offers no complaints. He states he feels better and has more energy. Denies side effects from immunotherapy. OBJECTIVE: VSS. Weight is up. LAB DATA: WBC - 12.09, H/H - 10.3/33.1, Plt Ct - 388, ANC - 9.50, Lytes wnl (NA+ 133), BUN/CR - 18/1.25 IV ACCESS: Port accessed off site, flushes readily with brisk blood return. Pre administration: Chemotherapy orders independently verified for drug name, route, and dosage per patient's height, weight and BSA by Mike Martinez RN and Kaya Lang [facility]. REACTIONS (DESCRIPTION, TIME, INTERVENTION AND EFFECTIVENESS) none ASSESSMENT: Alin was awake, alert and tolerated treatment well.Port flushed with 20 cc of NS and 500 units ofheparin and de-accessed. PLAN: Return to clinic per routine. documented in this encounter Plan of Treatment Upcoming Encounters Date Type Specialty Care Team Description 01/19/2022 Office Visit Hematology and Oncology Loan Burton APRN [facility] HEMATOLOGY/[place] [address] 01/19/2022 Infusion Hematology and Oncology Canc eled (F-ARIA CANCEL) 01/25/2022 Hospital Gastroenterology Jose Clark MD [facility] GASTROENTEROLOG [place] [address] 01/25/2022 Surgery Gastroenterology Jose Clark UPPE R GI R, MD ENDOSCOPY [facility] GASTROENTEROLOG [place] [address] 01/26/2022 Office Visit Hematology and Oncology Fabian Cameron MD [facility] HEMATOLOGY/[place] [address] Loan Burton APRN [facility] HEMATOLOGY/[place] [address] 01/26/2022 Infusion Hematology and Oncology 02/02/2022 Office Visit Hematology and Oncology Fabian Cameron MD [facility] HEMATOLOGY/[place] [address] 02/02/2022 Infusion Hematology and Oncology 02/22/2022 Telephone Hematology and Oncology Siena Lloyd RD [facility] DRIVE HEMATOLOGY [place] [address] Scheduled Procedures Name Priority Associated Diagnoses Date/Time EGD, UPPER GI ENDOSCOPY EGD with stent vs 2021 12:00 PM EDT cryotherapy. documented as of this encounter Visit Diagnoses Diagnosis Primary lung adenocarcinoma, right documented in this encounter Administered Medications Inactive Administered Medications - up to 3 most recent administrations Medication Order MAR Action Action Date Dose Rate Site durvalumab (Imfinzi) 1,240 New Bag 10/25/2017 2:58 PM EDT 1,240 mg 275 mL/hr mg in sodium chloride 0.9% 274.8 mL infusion 1,240 mg, Intravenous, ONCE, 1 dose, On Stephanie 10/25/17 at 1515, Administer over 60 Minutes, No dose adjustments., Dose Ordered = 1329mg (10 mg/kg). Pharmacist rounded dose per procedure. heparin, porcine 100 unit/mL flush 500 Given 10/25/2017 4:00 PM EDT 500 Units Units 500 Units, Intravenous, ONCE PRN, Starting on Stephanie 10/25/17 at 1357, Until Stephanie 10/25/17 at 1834, Line Care, Refer to Intravenous (IV) Procedure: Accessing Implanted Vascular Access Devices (654) procedure and/or Intravenous (IV) Job Aid: Adult Flushing & Catheter Care (9590) job aid for additional information regarding guidelines and administration., Routine sodium chloride 0.9 % flush 5-20 mL Given 10/25/2017 4:00 PM EDT 20 mLs 5-20 mL, Intravenous, EVERY 1 MIN PRN, Starting on Stephanie 10/25/17 at 1357, Until Stephanie 10/25/17 at 1834, Line Care, Flush pertains to all indwelling lines. Flush per protocol found in the job aid using the link provided on this medication record. Refer to Intravenous (IV) Job Aid: Adult Flushing & Catheter Care (6902) job aid for additional information regarding guidelines and administration., Routine documented in this encounter Care Teams Certified Driver Examiner Relationship Specialty Start Date End Date Farzaneh Winkler, DIVISIONAL STOREKEEPER PCP - General General Internal Medicine 06/05/[address] [place] [id number] documented as of this encounter
--- OUTSIDE RECORDS SUMMARY | 2022-01-19 07:39 | XMS_ITS | Encounter Summary ---
:1950 Author Organization [facility] [place] [address] Care Team Providers Name Role Phone Farzaneh Winkler APRN Primary Care Provider Reason for Visit Reason Comments Lung Cancer Encounter Details Date Type Department Care Team Description 12/20/2017 Office Visit Hematology/Oncology Jonathan Bishop, [facility] lung adenocarcinoma, right; at [facility] Hypothyroidism due to drugs [address] [facility] [address] [facility], [place] [address] [phone] Social History Tobacco Use Types Packs/Day Years [...] Sign Reading Time Taken Comments Blood Pressure 140/75 12/20/2017 1:03 PM EDT Pulse 102 12/20/2017 1:03 PM EDT Temperature 36.9 ??C (98.4 ??F) 12/20/2017 1:03 PM EDT Respiratory Rate 18 12/20/2017 1:03 PM EDT Oxygen Saturation 97% 12/20/2017 1:03 PM EDT Inhaled Oxygen Concentration - - Weight 137.4 kg (303 lb) 12/20/2017 1:03 PM EDT Height 180 cm (5' 10.87) 12/20/2017 1:03 PM EDT Body Mass Index 42.42 12/20/2017 1:03 PM EDT documented in this encounter Progress Notes Jonathan Bishop MD - 12/20/2017 1:00 PM EDT Images from the original note were not included. 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 He continues to tolerate [...] [employer] for 8 months ??? 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 Smoking [...] Genetics RESULTS CONSULTATION CASE Outside case labeled [id number] ([id number]), collection date 05/28/2017. [facility] Tracking #: [id number] Report to: [facility] Department of Pathology [address] [place] [address], [place] ??[address] , , Ext [phone] Submitted for molecular testing only. ??This case has not been reviewed in ??its ??entirety. SPECIMEN ANALYZED: ?? [id number] ([id number]) Analysis: ??Examination of DNA extracted from formalin-fixed paraffin-embedded tumor ??tissue for somatic mutation analysis. Results: ??The following gene variants were identified in the submitted tissue: CLINICALLY ACTIONABLE VARIANTS: BRAF: ??NEGATIVE EGFR: ??NEGATIVE KRAS: ??MUTATION c.35G> T p.G12V Exon 2 PIK3CA: ??NEGATIVE OTHER DETECTED VARIANTS: N/A Interpretation: ?? After review of the pathology report and slides, the specimen ([id number]) was selected for mutation analysis from [...] stained slide and 2 unstained slide(s) labeled [id number] ([id number]). Submitted for PD-L1 testing only. ??This case [...] CT scan of the chest done at [facility] on 09/05/2017 show that the primary mass [...] 4.1 x 3.6 cm. Laboratory today shows normal electrolytes with a slight decrease in sodium at 134 potassium is 4.0 creatinine is 1.41 liver tests are normal with a bilirubin of 0.2 AST 16 ALT 23 calcium is 8.5 TSH 1.14 and T4 7.8 CBC shows white count of 10.5 hemoglobin 11.4 hematocrit 36.8 platelet count is 363 with a neutrophil count of 8.10 Assessment/plan: Alin is tolerating the checkpoint inhibitor quite well. It has been 3 months since his last staging study and it makes sense to go ahead and look again at this point to make sure were doing well. Even if CT scan showed some enlargement of the tumor, since he is doing extremely well clinically one would have to argue that it could be a flare reaction. Nonetheless though it would be nice to know where he is at. Certainly if he had areas of new disease one would consider a different treatment strategy at this point. We will go ahead and get the CT scan of the chest with contrast before his next visit in 2 weeks. He is fine today for his durvalumab and will see him back with appropriate lab and thyroid studies in 2 weeks. documented in this encounter Plan of Treatment Upcoming Encounters Date Type Specialty Care Team Description 01/19/2022 Office Visit Hematology and Oncology Loan Burton APRN [facility] HEMATOLOGY/[place] [address] 01/19/2022 Infusion Hematology and Oncology Canc eled (F-ARIA CANCEL) 01/25/2022 Hospital Gastroenterology Jose Clark MD [facility] [place] [address] 01/25/2022 Surgery Gastroenterology Jose Clark UPPE R GI R, MD ENDOSCOPY [facility] [place] [address] 01/26/2022 Office Visit Hematology and Oncology Fabian Cameron MD [facility] HEMATOLOGY/[place] [address] Loan Burton APRN [facility] HEMATOLOGY/[place] [address] 01/26/2022 Infusion Hematology and Oncology 02/02/2022 Office Visit Hematology and Oncology Fabian Cameron MD [facility] HEMATOLOGY/[place] [address] 02/02/2022 Infusion Hematology and Oncology 02/22/2022 Telephone Hematology and Oncology Siena Lloyd RD [facility] [place] [address] Scheduled Procedures Name Priority Associated Diagnoses Date/Time EGD, UPPER GI ENDOSCOPY EGD with stent vs 2021 12:00 PM EDT cryotherapy. documented as of this encounter Procedures Procedure Name Priority Date/Time Associated Diagnosis Comme nts LAB SCAN 12/20/2017 12:00 AM Results for this EDT procedure are i n the results section . documented in this encounter Results SCAN DOC: LAB (12/20/2017 12:00 AM EDT) Narrative 12/20/2017 12:00 AM EDT This result has an attachment that is no t available. Ordered by an unspecified provider. 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
--- OUTSIDE RECORDS SUMMARY | 2022-01-19 07:39 | XMS_ITS | Encounter Summary ---
:1950 Author Organization [facility] [place] [address] Care Team Providers Name Role Phone Farzaneh Winkler APRN Primary Care Provider Reason for Visit Reason Comments Chemotherapy Cycle 1, Day 29 Docetaxel/Ca rboplatin Treatment/Therapy Plan Authorization (Routine) - Closed Specialty Diagnoses / Procedures Referred By Contact Refer red To Contact Diagnoses Primary lung adenocarcinoma, right Jonathan Bishop MD [facility] Hem Onc Office [address] [place] [address] 660 [address] [place] [address] Phone: Fax: Referral ID Status Reason Start Date Expiration Date Visits Requ ested Visits Authorized [id number] Closed 07/10/2017 07/10/2018 1 1 Encounter Details Date Type Department Care Team Description 08/16/2017 [facility] [address] [place] [address] [phone] Social History Tobacco Use Types [...] encounter Progress Notes Tena Leblanc RN - 08/16/2017 11:00 AM EST INFUSION THERAPY ADMINISTRATION NOTES DIAGNOSIS: Lung Cancer CYCLE #1: Day 29 REASON FOR VISIT: Docetaxel/Carboplatin SUBJECTIVE Alin Meek offers no complaints. OBJECTIVE LAB DATA: adequate for treatment, reviewed by Dr. Bishop IV ACCESS: Port already accessed by OSH for lab draw; dressing CDI, flushes easily with excellent blood return noted. Port flushed with 20cc NS and 500 units Heparin then de-accessed after completion of treatment. Pre administration: Chemotherapy orders independently verified for drug name, route, and dosage per patient's height, weight and BSA by Tena Leblanc, RN & Pharmacist on site. REACTIONS (DESCRIPTION, TIME, INTERVENTION AND EFFECTIVENESS) none ASSESSMENT Alin Meek was awake, alert and tolerated treatment well. He goes to XRT afterwards. PLAN Return to clinic as scheduled. documented in this encounter Plan of Treatment Upcoming Encounters Date Type Specialty Care Team Description 01/19/2022 Office Visit Hematology and Oncology Loan Burton, [facility] HEMATOLOGY/[place] [address] 01/19/2022 Infusion Hematology and Oncology Canc eled (F-ARIA CANCEL) 01/25/2022 Hospital Gastroenterology Jose Clark MD [facility] GASTROENTEROLOG [place] [address] 01/25/2022 Surgery Gastroenterology Jose Clark UPPE R GI R, MD ENDOSCOPY [facility] GASTR[place]ENTER[place] [address] 01/26/2022 Office Visit Hematology and Oncology Fabian Cameron MD [facility] HEMATOLOGY/[place] [address] Loan Burton APRN [facility] HEMATOLOGY/[place] [address] 01/26/2022 Infusion Hematology and Oncology 02/02/2022 Office Visit Hematology and Oncology Fabian Cameron MD [facility] HEMATOLOGY/[place] [address] 02/02/2022 Infusion Hematology and Oncology 02/22/2022 Telephone Hematology and Oncology Siena Lloyd RD [facility] DRIVE HEMATOLOGY [place] [address] Scheduled Procedures Name Priority Associated Diagnoses Date/Time EGD, UPPER GI ENDOSCOPY EGD with stent vs 2021 12:00 PM EDT cryotherapy. documented as of this encounter Visit Diagnoses Diagnosis Primary lung adenocarcinoma, right documented in this encounter Administered Medications Inactive Administered Medications - up to 3 most recent administrations Medication Order MAR Action Action Date Dose Rate Site CARBOplatin (PARAPLATIN) 292 New Bag 08/16/2017 1:58 PM EST 292 mg 558 mL/hr mg in dextrose 5% 279.2 mL chemo infusion 292 mg (Target AUC = 2), Intravenous, WEEKLY, First dose on Stephanie 08/16/17 at 1230, Until Discontinued, Administer over 30 Minutes, Hold Parameters: CARBOplatin, Call provider for serum creatinine less than (mg/dL): .2, Call provider for serum creatinine greater than (mg/dL): 2, External serum creatinine results used to calculate dose? Yes, Enter serum creatinine value (mg/dL): 1.21, Enter serum creatinine result date: 06/29/2017 dexamethasone (DECADRON) injection 10 mg Given 08/16/2017 11:35 AM EST 10 mg 10 mg, Intravenous, ONCE, 1 dose, On Stephanie 08/16/17 at 1130, Administer 60 minutes prior to DOCEtaxel diphenhydrAMINE (BENADRYL) injection 25 mg Given 08/16/2017 11:33 AM EST 25 mg 25 mg, Intravenous, ONCE, 1 dose, On Stephanie 08/16/17 at 1130, Administer 60 minutes prior to DOCEtaxel, Routine DOCEtaxel (TAXOTERE) 53 mg in New Bag 08/16/2017 12:50 PM EST 53 m g 103 mL/hr sodium chloride 0.9% Non-PVC 102.65 mL chemo infusion 53 mg (rounded from 53.4 mg = 20 mg/m2/dose ? 2.67 m2 Treatment Plan BSA from Recorded weight), Intravenous, ONCE, 1 dose, On Stephanie 08/16/17 at 1230, Administer over 60 Minutes, Warning Vesicant/Irritant Medication famotidine (PEPCID) injection 20 mg Given 08/16/2017 11:32 AM EST 20 mg 20 mg, Intravenous, ONCE, 1 dose, On Stephanie 08/16/17 at 1130, Administer 60 minutes prior to DOCEtaxel fosaprepitant (EMEND) 150 mg in New Bag 08/16/2017 11:39 AM ES T 150 mg 310 mL/hr sodium chloride 0.9% 155 mL infusion 150 mg, Intravenous, at 310 mL/hr, ONCE, 1 dose, On Stephanie 08/16/17 at 1130, Routine heparin, porcine 100 unit/mL flush 500 Given 08/16/2017 2:35 PM EST 500 Units Units 500 Units, Intravenous, ONCE PRN, Starting on Stephanie 08/16/17 at 1101, Until Stephanie 08/16/17 at 1755, Line Care, Refer to Intravenous (IV) Procedure: Accessing Implanted Vascular Access Devices (104) procedure and/or Intravenous (IV) Job Aid: Adult Flushing & Catheter Care (3120) job aid for additional information regarding guidelines and administration., Routine palonosetron (ALOXI) injection 0.25 mg Given 08/16/2017 11:37 AM EST 0.25 mg 0.25 mg, Intravenous, ONCE, 1 dose, On Stephanie 08/16/17 at 1130, Administer over 30 seconds., Routine sodium chloride 0.9 % flush 5-20 mL Given 08/16/2017 2:35 PM EST 20 mLs 5-20 mL, Intravenous, EVERY 1 MIN PRN, Starting on Stephanie 08/16/17 at 1101, Until Stephanie 3/1/18 at 1755, Line Care, Flush pertains to all indwelling lines. Flush per protocol found in the job aid using the link provided on this medication record. Refer to Intravenous (IV) Job Aid: Adult Flushing & Catheter Care (5904) job aid for additional information regarding guidelines and administration., Routine sodium chloride 0.9% infusion New Bag 08/16/2017 11:00 AM EST 500 mLs 500 mL, Intravenous, ONCE, 1 dose, On Stephanie 08/16/17 at 1130 documented in this encounter Care Teams Die Trimmer Relationship Specialty Start Date End Date Farzaneh Winkler, EMPLOYEE RELATIONS ADVISOR PCP - General General Internal Medicine 06/05/[address] [place] [address] documented as of this encounter
--- OUTSIDE RECORDS SUMMARY | 2022-01-19 07:39 | XMS_ITS | Encounter Summary ---
:1950 Author Organization [facility] [place] [address] Care Team Providers Name Role Phone Farzaneh Winkler APRN Primary Care Provider Encounter Details Date Type Department Care Team Description 01/15/2018 Hospital Encounter Radiology Library at [facility], Jonathan Huff MD [address] [facility] [address] [place] [phone] Social History Tobacco Use Types Packs/Day Years [...] Office Visit Hematology and Oncology Loan Burton, NLOAN [facility] HEMATOLOGY/[place] [address] 01/19/2022 Infusion Hematology and Oncology Canc eled (F-ARIA CANCEL) 01/25/2022 Hospital Gastroenterology Jose Calrk Encounter RMD [facility] GASTROENTEROLOG [place] [address] 01/25/2022 Surgery Gastroenterology Jose Clark EGD, LOLA Yates MD ENDOSCOPY [facility] DR GASTROENTEROLOG [place] [address] 01/26/2022 Office Visit Hematology and Oncology Fabian Cameron MD [facility] DR HEMATOLOGY/[place] [address] Loan Burton, NOLAN [facility] HEMATOLOGY/[place] [address] 01/26/2022 Infusion Hematology and Oncology 02/02/2022 Office Visit Hematology and Oncology Fabian Cameron MD [facility] HEMATOLOGY/[place] [address] 02/02/2022 Infusion Hematology and Oncology 02/22/2022 Telephone Hematology and Oncology Siena Lloyd, [place] [facility] DRIVE HEMATOLOGY [place] [address] Scheduled Procedures Name Priority Associated Diagnoses Date/Time EGD, UPPER GI ENDOSCOPY EGD with stent vs 2021 12:00 PM EDT cryotherapy. documented as of this encounter Procedures Procedure Name Priority Date/Time Associated Diagnosis Comme nts FILM LIBRARY Routine 01/15/2018 12:00 AM Results for this STORAGE ONLY CT EDT procedure ar e in CHEST the results section. documented in this encounter Results Film Library- Storage Only CT Chest (01/15/2018 12:00 AM EDT) Specimen (Source) Anatomical Location Collection Method / Collectio n Time Received Time / Laterality Volume Narrative RAD - 01/17/2018 6:40 PM EDT This exam is for storage only and is aut o-finalizing. Jonathan Bishop MD IMG FILM LIBRARY ORDERABLES Performing Organization Address City/State/ZIP Code Phon e Number [place], [place] documented in this encounter Visit Diagnoses Not on filedocumented in this encounter Care Teams Snow Ranger Relationship Specialty Start Date End Date Farzaneh Winkler, TELEPHONE COIN BOX COLLECTOR PCP - General General Internal Medicine 06/05/[address] [place], [place] [id number] documented as of this encounter
--- OUTSIDE RECORDS SUMMARY | 2022-01-19 07:39 | XMS_ITS | Encounter Summary ---
:1950 Author Organization [facility] [place] [address] Care Team Providers Name Role Phone Farzaneh Winkler Daria FRANCISCO Primary Care Provider Encounter Details Date Type Department Care Team Description 08/16/2017 Office Visit Radiation Oncology at [facility] Ramos A denocarcinoma, lung, [facility] [address] [place] RADIATION ONCOL OGY [address] [place], [place] [phone] (Wo rk) Social History Tobacco Use Types [...] encounter Progress Notes Alden Ramos MD - 08/16/2017 2:30 PM EST Images from the original note were not included. 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 Bishop) - ON HOLD INTENT OF THERAPY: Definitive (Curative) RADIATION TREATMENT DETAILS: Treatment Site RUL / mediastinum Prescribed Dose 60 Gy in 30 fractions Current Dose: 52 Gy in 26 fractions Potato Loader [place] from Current Plan (minimum 60 Gy isodose volume shown): INTERVAL HISTORY Subjective: General - No significant changes since last seen. Overall feels well. Resp - Progressive esophagitis, rated 3/10 with swallowing. Eating softer / blander foods but not yet using BMX / carafate. Otherwise no new cough / SOB. Ongoing CHENG. Pain: Pain score as above. Nutrition: Weight at start of therapy was 307 lbs --> 307lbs --> 298 --> 293 lbs today. Medications 08/16/17 1433 Medication Sig Taking? ciprofloxacin (CIPRO) 500 mg Tablet Take 1 tablet by mouth 2 times daily. loperamide (IMODIUM A-D) 2 mg Capsule Take 2 mg by mouth 4 times daily as needed for Diarrhea. prochlorperazine (COMPAZINE) 10 mg Tablet Take 1 tablet by mouth every 6 hours as needed for Nausea. SERTRALINE HCL (ZOLOFT ORAL) Take by mouth daily. omeprazole (PRILOSEC) 40 mg Capsule, Delayed Release(E.C.) Take daily, 1/2 hour prior to breakfast on an empty stomach. diphenhydrAMINE/aluminum-magnesium hydroxide with simethicone/lidocaine (BMX) oral suspension Swallow 10 mls every 3h as needed for esophageal pain. Patient not taking: Reported on 08/16/2017 sucralfate (CARAFATE) 1 gram Tablet Dissolve in 5ml of water and swallow for esophageal pain. You can take this every 3hours as needed. Patient not taking: Reported on 08/16/2017 losartan (COZAAR) 25 mg Tablet Take 25 [...] Apply topically 2 times daily as needed. Interval Imaging / Laboratory Studies: I have personally reviewed this patient's interval portal imaging to confirm accurate positioning and alignment which matches the patient's original approved treatment planning images. EXAM: Vitals 08/16/2017 SYSTOLIC 114 DIASTOLIC 66 BP Location PULSE 112 TEMPERATURE 99.7 RESPIRATIONS 20 Height (Chinese) 5' 10.866 Height (Metric) 180 cm Weight (Chinese) 293 lbs Weight (Metric) 132.904 kg BODY MASS INDEX 41.02 kg/m2 Constitutional: he appears well-developed and well-nourished. No distress. Performance Status: KPS Score ECOG Grade Definition 90-100 0 Fully active, able to carry on all pre-disease performance without restriction 70-80 1 Restricted in physically strenuous activity but ambulatory and able to carry out work of a light or sedentary nature, e.g., light house work, office work X 50-60 2 Ambulatory and capable of all selfcare but unable to carry out any work activities; up andabout more than 50% of waking hours 30-40 3 Capable of only limited selfcare; confined to bed or chair more than 50% of waking hours 10-20 4 Completely disabled; cannot carry on any selfcare; totally confined to bed or chair IMPRESSION/PLAN Impression: Tolerating radiotherapy as anticipated. +Weight loss / esophagitis. Plan: Continue treatment as planned. Patient to see RD today. Encouraged use of BMX / carafate + simply thick. documented in this encounter Plan of Treatment Upcoming Encounters Date Type Specialty Care Team Description 01/19/2022 Office Visit Hematology and Oncology Loan Burton, FRENCH CORD BINDER [facility] HEMATOLOGY/[place] [address] 01/19/2022 Infusion Hematology and Oncology Canc eled (F-ARIA CANCEL) 01/25/2022 Hospital Gastroenterology Jose Clark MD [facility] [place] [address] 01/25/2022 Surgery Gastroenterology Jose Clark, LOLA Yates MD ENDOSCOPY [facility] [place] [address] 01/26/2022 Office Visit Hematology and Oncology Fabian Cameron MD [facility] HEMATOLOGY/[place] [address] Loan Burton APRN [facility] HEMATOLOGY/[place] [address] 01/26/2022 Infusion Hematology and Oncology 02/02/2022 Office Visit Hematology and Oncology Fabian Cameron MD [facility] HEMATOLOGY/[place] [address] 02/02/2022 Infusion Hematology and Oncology 02/22/2022 Telephone Hematology and Oncology Siena Lloyd, MUKUND [facility] DRIVE [place] [address] Scheduled Procedures Name Priority Associated Diagnoses Date/Time EGD, UPPER GI ENDOSCOPY EGD with stent vs 2021 12:00 PM EDT cryotherapy. documented as of this encounter Procedures Procedure Name Priority Date/Time Associated Diagnosis Comme nts LAB SCAN 08/16/2017 12:00 AM Results for this EST procedure are i n the results section . documented in this encounter Results SCAN DOC: LAB (08/16/2017 12:00 AM EST) Narrative 08/16/2017 12:00 AM EST This result has an attachment that is no t available. Ordered by an unspecified provider. Scanning Provider MEDIA MGR SCAN EXT ORDR/RSLT documented in this encounter Visit Diagnoses Diagnosis Adenocarcinoma, lung, right documented in this encounter Care Teams Engineering Teacher Relationship Specialty Start Date End Date Farzaneh Winkler, FRENCH CORD BINDER PCP - General General Internal Medicine 06/05/[address] [place] [address] documented as of this encounter
--- OUTSIDE RECORDS SUMMARY | 2022-01-19 07:39 | XMS_ITS | Encounter Summary ---
:1950 Author Organization [facility] [place] [address] Care Team Providers Name Role Phone Farzaneh Winkler APRN Primary Care Provider Reason for Visit Reason Comments Chemotherapy Cycle 7 Day 1 Treatment/Therapy Plan Authorization (Routine) - Closed Specialty Diagnoses / Procedures Referred By Contact Refer red To Contact Diagnoses Primary lung adenocarcinoma, right Jonathan Bishop MD [facility] Hem Onc Infusion Procedures [place] CHEMOTHERAPY DRUG IMFINZI (DURVALUMAB) [address] [place] [address] 983 95 [place] [address] Phone: Fax: Referral ID Status Reason Start Date Expiration Date Visits Requ ested Visits Authorized [id number] Closed 08/21/2017 09/07/2023 50 50 Encounter Details Date Type Department Care Team Description 12/06/2017 [facility] [address] [place], [place] [phone] Social History Tobacco Use Types Packs/Day [...] encounter Progress Notes Janett Wilks RN - 12/06/2017 9:00 AM EDT INFUSION THERAPY ADMINISTRATION NOTES DIAGNOSIS: NSCLC CYCLE #: 7 REASON FOR VISIT: Durvalumab infusion SUBJECTIVE: Pierre [...] and BSA by JANETT WILKS, MADISYN and on-site pharmacist. REACTIONS (DESCRIPTION, TIME, INTERVENTION AND EFFECTIVENESS) none ASSESSMENT: Alin was awake, alert and tolerated treatment well. PLAN: Return to clinic in 2 weeks. documented in this encounter Plan of Treatment Upcoming Encounters Date Type Specialty Care Team Description 01/19/2022 Office Visit Hematology and Oncology Loan Burton APRN [facility] HEMATOLOGY/[place] [address] 01/19/2022 Infusion Hematology and Oncology Canc eled (F-ARIA CANCEL) 01/25/2022 Hospital Gastroenterology Jose Clark MD [facility] GASTROENTEROLOG [place] [address] 01/25/2022 Surgery Gastroenterology Jose Clark UPPE R GI R, MD ENDOSCOPY [facility] GASTROENTER[place] [address] 01/26/2022 Office Visit Hematology and Oncology Fabian Cameron MD [facility] HEMATOLOGY/[place] [address] Loan Burton, NOLAN [facility] DR HEMATOLOGY/[place] [address] 01/26/2022 Infusion Hematology and Oncology 02/02/2022 Office Visit Hematology and Oncology Fabian Cameron MD [facility] HEMATOLOGY/[place] [address] 02/02/2022 Infusion Hematology and Oncology 02/22/2022 Telephone Hematology and Oncology Siena Lloyd RD [facility] DRIVE HEMATOLOGY [place] [address] Scheduled Procedures Name Priority Associated Diagnoses Date/Time EGD, UPPER GI ENDOSCOPY EGD with stent vs 2021 12:00 PM EDT cryotherapy. documented as of this encounter Visit Diagnoses Diagnosis Primary lung adenocarcinoma, right documented in this encounter Administered Medications Inactive Administered Medications - up to 3 most recent administrations Medication Order MAR Action Action Date Dose Rate Site durvalumab (Imfinzi) 1,240 New Bag 12/06/2017 9:58 AM EDT 1,240 mg 275 mL/hr mg in sodium chloride 0.9% 274.8 mL infusion 1,240 mg, Intravenous, ONCE, 1 dose, On Stephanie 12/06/17 at 1015, Administer over 60 Minutes, No dose adjustments., 10 mg/kg dosing rounded by MD. documented in this encounter Care Teams Director Of Retail Marketing Relationship Specialty Start Date End Date Farzaneh Winkler, CHAPLAIN PCP - General General Internal Medicine 06/05/[address] [place] [address] documented as of this encounter
--- OUTSIDE RECORDS SUMMARY | 2022-01-19 07:39 | XMS_ITS | Encounter Summary ---
:1950 Author Organization [facility] [place] [address] Care Team Providers Name Role Phone Farzaneh Winkler APRN Primary Care Provider Encounter Details Date Type Department Care Team Description 09/05/2017 Hospital Encounter Radiology Library at [facility], Jonathan Huff MD [address] [facility] [id number] [place] [phone] Social History Tobacco Use Types Packs/Day Years [...] MOUTH EVERY SIX HOURS NEEDED FOR NAUSEA/VOMITING ciprofloxacin (CIPRO) 500 Take 1 tablet by 14 tablet 0 06/201709/11/2017 mg TabletIndications: mouth 2 times Primary lung daily. adenocarcinoma, right prochlorperazine Take 1 tablet by 30 tablet 3 07/19/2017 (COMPAZINE) 10 mg mouth every 6 hours TabletIndications: as needed for Primary lung Nausea. adenocarcinoma, right SERTRALINE HCL (ZOLOFT Take by mouth 0 04/24/2018 ORAL) daily. omeprazole (PRILOSEC) 40 Take daily, / 30 capsule 3 201709/04/2019 mg Capsule, Delayed hour prior to Release(E.C.) breakfast on an empty stomach. diphenhydrAMINE/aluminum- Swallow 10 mls 250 mL 3 201711/08/2017 magnesium hydroxide with every 3h as needed simethicone/lidocaine for esophageal (BMX) oral suspension pain. sucralfate (CARAFATE) 1 Dissolve in 5ml of 30 tablet 3 06/1811/08/2017 gram Tablet water and swallow for esophageal pain. You can take this every 3hours as needed. amLODIPine (NORVASC) 10 Take 10 mg by mouth 0 10/21/2019 mg Tablet daily. BUDESONIDE/FORMOTEROL Inhale into the 0 04/24/2018 FUMARATE (SYMBICORT INHL) lungs 2 times daily. documented as of this encounter Plan of Treatment Upcoming Encounters Date Type Specialty Care Team Description 01/19/2022 Office Visit Hematology and Oncology Loan Burton, GAGGERMAN [facility] HEMATOLOGY/[place] [address] 01/19/2022 Infusion Hematology and Oncology Canc eled (F-ARIA CANCEL) 01/25/2022 Hospital Gastroenterology Jose Clark MD [facility] [place] [address] 01/25/2022 Surgery Gastroenterology Jose Clark EGLuz, LOLA Yates MD ENDOSCOPY [facility] [place] [address] 01/26/2022 Office Visit Hematology and Oncology Fabian Cameron MD [facility] DR HEMATOLOGY/[place] [address] Loan Burton APRN [facility] HEMATOLOGY/[place] [address] 01/26/2022 Infusion Hematology and Oncology 02/02/2022 Office Visit Hematology and Oncology Fabian Cameron MD [facility] HEMATOLOGY/[place] [address] 02/02/2022 Infusion Hematology and Oncology 02/22/2022 Telephone Hematology and Oncology Page, Siena Samayoa, MUKUND [facility] DR[address] [place] [address] Scheduled Procedures Name Priority Associated Diagnoses Date/Time EGD, UPPER GI ENDOSCOPY EGD with stent vs 2021 12:00 PM EDT cryotherapy. documented as of this encounter Procedures Procedure Name Priority Date/Time Associated Diagnosis Comme nts FILM LIBRARY Routine 09/05/2017 12:00 AM Results for this STORAGE ONLY CT EDT procedure ar e in CHEST the results section. documented in this encounter Results Film Library- Storage Only CT Chest (09/05/2017 12:00 AM EDT) Specimen (Source) Anatomical Location Collection Method / Collectio n Time Received Time / Laterality Volume Narrative DH RAD - 09/11/2017 5:08 PM EDT This exam is for storage only and is aut o-finalizing. Jonathan Bishop MD IMG FILM LIBRARY ORDERABLES Performing Organization Address City/State/ZIP Code Phon e Number [place], [place] documented in this encounter Visit Diagnoses Not on filedocumented in this encounter Care Teams Critical Care Educator Relationship Specialty Start Date End Date Farzaneh Winkler, NOLAN PCP - General General Internal Medicine 06/05/[address] [place] [phone] documented as of this encounter
--- OUTSIDE RECORDS SUMMARY | 2022-01-19 07:39 | XMS_ITS | Encounter Summary ---
:1950 Author Organization [facility] [place] [address] Care Team Providers Name Role Phone Farzaneh Winkler APRN Primary Care Provider Reason for Visit Reason Comments Chemotherapy Cycle 3 Durvalumab Treatment/Therapy Plan Authorization (Routine) - Closed Specialty Diagnoses / Procedures Referred By Contact Refer red To Contact Diagnoses Primary lung adenocarcinoma, right Jonathan Bishop MD [facility] Hem Onc Infusion Procedures [place] CHEMOTHERAPY DRUG IMFINZI (DURVALUMAB) [address] [place] [address] 067 [address] [place] [address] Phone: Fax: Referral ID Status Reason Start Date Expiration Date Visits Requ ested Visits Authorized [id number] Closed 08/21/2017 09/07/2023 50 50 Encounter Details Date Type Department Care Team Description 10/11/2017 [facility] [address] [place] [address] [phone] Social History Tobacco Use Types [...] encounter Progress Notes Tena Leblanc RN - 10/11/2017 11:30 AM EDT INFUSION THERAPY ADMINISTRATION NOTES DIAGNOSIS: NSCLC CYCLE #: 3 REASON FOR VISIT: Durvalumab infusion SUBJECTIVE: Pierre offers no complaints. OBJECTIVE: Seen by provider. Ready to treat. LAB DATA: WNL for today's infusion. IV ACCESS: Mediport Pre administration: Chemotherapy orders independently verified for drug name, route, and dosage per patient's height, weight and BSA by Tena Leblanc, MADISYN and on-site pharmacist. REACTIONS (DESCRIPTION, TIME, [...] Burton APRN [facility] HEMATOLOGY/[place] [address] 01/19/2022 Infusion Hematology and Oncology Canc eled (F-ARIA CANCEL) 01/25/2022 Hospital Gastroenterology Jose Clark MD [facility] GASTROENTEROLOG [place] [address] 01/25/2022 Surgery Gastroenterology Jose Clark UPPE R GI R, MD ENDOSCOPY [facility] GASTROENTER[place] [address] 01/26/2022 Office Visit Hematology and Oncology Fabian Cameron MD [facility] HEMATOLOGY/[place] [address] Loan Burton APRN [facility] HEMATOLOGY/[place] [address] 01/26/2022 Infusion Hematology and Oncology 02/02/2022 Office Visit Hematology and Oncology Fabian Cameron MD [facility] HEMATOLOGY/[place] [address] 02/02/2022 Infusion Hematology and Oncology 02/22/2022 Telephone Hematology and Oncology Siena Lloyd RD [facility] DRIVE HEMATOLOGY [place] [address] Scheduled Procedures Name Priority Associated Diagnoses Date/Time EGD, UPPER GI ENDOSCOPY EGD with stent vs 2021 12:00 PM EDT cryotherapy. documented as of this encounter Visit Diagnoses Diagnosis Primary lung adenocarcinoma, right documented in this encounter Administered Medications Inactive Administered Medications - up to 3 most recent administrations Medication Order MAR Action Action Date Dose Rate Site durvalumab (Imfinzi) 1,240 New Bag 10/11/2017 12:44 PM EDT 1,240 m g 275 mL/hr mg in sodium chloride 0.9% 274.8 mL infusion 1,240 mg, Intravenous, ONCE, 1 dose, On Stephanie 10/11/17 at 1245, Administer over 60 Minutes, No dose adjustments., Dose Ordered = 1329 mg (10 mg/kg). Pharmacist rounded dose per procedure. heparin, porcine 100 unit/mL flush 500 Given 10/11/2017 1:50 PM EDT 500 Units Units 500 Units, Intravenous, ONCE PRN, Starting on Stephanie 10/11/17 at 1142, Until Stephanie 10/11/17 at 1730, Line Care, Refer to Intravenous (IV) Procedure: Accessing Implanted Vascular Access Devices (314) procedure and/or Intravenous (IV) Job Aid: Adult Flushing & Catheter Care (4880) job aid for additional information regarding guidelines and administration., Routine sodium chloride 0.9 % flush 5-20 mL Given 10/11/2017 1:50 PM EDT 20 mLs 5-20 mL, Intravenous, EVERY 1 MIN PRN, Starting on Stephanie 10/11/17 at 1142, Until Stephanie 10/11/17 at 1730, Line Care, Flush pertains to all indwelling lines. Flush per protocol found in the job aid using the link provided on this medication record. Refer to Intravenous (IV) Job Aid: Adult Flushing & Catheter Care (4570) job aid for additional information regarding guidelines and administration., Routine documented in this encounter Care Teams Mixed Livestock Farm Worker Relationship Specialty Start Date End Date Farzaneh Winkler, NOLAN PCP - General General Internal Medicine 06/05/[address] [place] [address] documented as of this encounter
--- OUTSIDE RECORDS SUMMARY | 2022-01-19 07:39 | XMS_ITS | Encounter Summary ---
:1950 Author Organization [facility] [place] [address] Care Team Providers Name Role Phone Farzaneh Winkler APRN Primary Care Provider Reason for Visit Reason Comments Chemotherapy Cycle 5 Durvalumab Treatment/Therapy Plan Authorization (Routine) - Closed Specialty Diagnoses / Procedures Referred By Contact Refer red To Contact Diagnoses Primary lung adenocarcinoma, right Jonathan Bishop MD [facility] Hem Onc Infusion Procedures [place] CHEMOTHERAPY DRUG IMFINZI (DURVALUMAB) [address] [place] [address] 378 63 [place] [address] Phone: Fax: Referral ID Status Reason Start Date Expiration Date Visits Requ ested Visits Authorized [id number] Closed 08/21/2017 09/07/2023 50 50 Encounter Details Date Type Department Care Team Description 11/08/2017 [facility] [address] [place] [address] [phone] Social History Tobacco Use Types [...] encounter Progress Notes Tena Leblanc RN - 11/08/2017 11:30 AM EDT INFUSION THERAPY ADMINISTRATION NOTES DIAGNOSIS: NSCLC CYCLE #: 5 REASON FOR VISIT: Durvalumab infusion SUBJECTIVE: Pierre [...] [facility] HEMATOLOGY/[place] [address] 01/19/2022 Infusion Hematology and Oncology Canc eled (F-ARIA CANCEL) 01/25/2022 Hospital Gastroenterology Jose Clark MD [facility] GASTROENTER[place] [address] 01/25/2022 Surgery Gastroenterology Jose Clark UPPE R GI R, MD ENDOSCOPY [facility] GASTROENTER[place] [address] 01/26/2022 Office Visit Hematology and Oncology Fabian Cameron MD [facility] DR HEMATOLOGY/[place] [address] Loan Burton APRN [facility] HEMATOLOGY/[place] [address] 01/26/2022 Infusion Hematology and Oncology 02/02/2022 Office Visit Hematology and Oncology Fabian Cameron MD [facility] HEMATOLOGY/[place] [address] 02/02/2022 Infusion Hematology and Oncology 02/22/2022 Telephone Hematology and Oncology Siena Lloyd RD [facility] DRIVE HEMATOLOGY [place] [address] Scheduled Procedures Name Priority Associated Diagnoses Date/Time EGD, UPPER GI ENDOSCOPY EGD with stent vs 2021 12:00 PM EDT cryotherapy. documented as of this encounter Visit Diagnoses Diagnosis Primary lung adenocarcinoma, right documented in this encounter Administered Medications Inactive Administered Medications - up to 3 most recent administrations Medication Order MAR Action Action Date Dose Rate Site durvalumab (Imfinzi) 1,240 New Bag 11/08/2017 12:03 PM EDT 1,240 m g 275 mL/hr mg in sodium chloride 0.9% 274.8 mL infusion 1,240 mg, Intravenous, ONCE, 1 dose, On Stephanie 11/08/17 at 1230, Administer over 60 Minutes, No dose adjustments., Dose Ordered = 1329mg (10 mg/kg). Pharmacist rounded dose per procedure. heparin, porcine 100 unit/mL flush 500 Given 11/08/2017 1:10 PM EDT 500 Units Units 500 Units, Intravenous, ONCE PRN, Starting on Stephanie 11/08/17 at 1109, Until Stephanie 11/08/17 at 1527, Line Care, Refer to Intravenous (IV) Procedure: Accessing Implanted Vascular Access Devices (784) procedure and/or Intravenous (IV) Job Aid: Adult Flushing & Catheter Care (1585) job aid for additional information regarding guidelines and administration., Routine sodium chloride 0.9 % flush 5-20 mL Given 11/08/2017 1:10 PM EDT 20 mLs 5-20 mL, Intravenous, EVERY 1 MIN PRN, Starting on Stephanie 11/08/17 at 1109, Until Stephanie 11/08/17 at 1527, Line Care, Flush pertains to all indwelling lines. Flush per protocol found in the job aid using the link provided on this medication record. Refer to Intravenous (IV) Job Aid: Adult Flushing & Catheter Care (2100) job aid for additional information regarding guidelines and administration., Routine documented in this encounter Care Teams Cheese Grader Relationship Specialty Start Date End Date Farzaneh Winkler, EXCEL SPECIALIST PCP - General General Internal Medicine 06/05/[address] [place] [address] documented as of this encounter
--- OUTSIDE RECORDS SUMMARY | 2022-01-19 07:39 | XMS_ITS | Encounter Summary ---
:1950 Author Organization [facility] [place] [address] Care Team Providers Name Role Phone Farzaneh Winkler APRN Primary Care Provider Reason for Visit Reason Comments Chemotherapy Durvalumab Treatment/Therapy Plan Authorization (Routine) - Closed Specialty Diagnoses / Procedures Referred By Contact Refer red To Contact Diagnoses Primary lung adenocarcinoma, right Jonathan Bishop MD [facility] Hem Onc Infusion Procedures [place] CHEMOTHERAPY DRUG IMFINZI (DURVALUMAB) [address] [place] [address] [address] [place] [address] Phone: Fax: Referral ID Status Reason Start Date Expiration Date Visits Requ ested Visits Authorized [id number] Closed 08/21/2017 09/07/2023 50 50 Encounter Details Date Type Department Care Team Description 12/20/2017 [facility] [address] [place], [place] [address] [phone] Social History Tobacco Use Types Packs/Day [...] usd to drink heavily ( 12 pck/day) 01/15 /2018 quit 2015 Sex Assigned at Date Recorded Not on file documented as of this encounter Progress Notes Dina Miranda RN - 12/20/2017 1:00 PM EDT INFUSION THERAPY ADMINISTRATION NOTES DIAGNOSIS: NSCLC CYCLE #: 8 REASON FOR VISIT: Durvalumab infusion SUBJECTIVE: Pierre [...] per patient's height, weight and BSA by DIAN MIRANDA RN and on-site pharmacist. REACTIONS (DESCRIPTION, TIME, INTERVENTION AND EFFECTIVENESS) none ASSESSMENT: Alin was awake, alert and tolerated treatment well. PLAN: Return to clinic in 2 weeks. documented in this encounter Plan of Treatment Upcoming Encounters Date Type Specialty Care Team Description 01/19/2022 Office Visit Hematology and Oncology Loan Burton, NOLAN [facility] HEMATOLOGY/[place] [address] 01/19/2022 Infusion Hematology and Oncology Canc eled (F-ARIA CANCEL) 01/25/2022 Hospital Gastroenterology Jose Clark MD [facility] GASTROENTEROLOG [place] [address] 01/25/2022 Surgery Gastroenterology Jose Clark UPPE R GI R, MD ENDOSCOPY [facility] GASTROENTEROLOG [place] [address] 01/26/2022 Office Visit Hematology and Oncology Fabian Cameron MD [facility] HEMATOLOGY/[place] [address] Loan Burton APRN [facility] HEMATOLOGY/[place] [address] 01/26/2022 Infusion Hematology and Oncology 02/02/2022 Office Visit Hematology and Oncology Fabian Cameron MD [facility] HEMATOLOGY/[place] [address] 02/02/2022 Infusion Hematology and Oncology 02/22/2022 Telephone Hematology and Oncology Siena Lloyd RD [facility] DRIVE HEMATOLOGY [place] [address] Scheduled Procedures Name Priority Associated Diagnoses Date/Time EGD, UPPER GI ENDOSCOPY EGD with stent vs 2021 12:00 PM EDT cryotherapy. documented as of this encounter Visit Diagnoses Diagnosis Primary lung adenocarcinoma, right documented in this encounter Administered Medications Inactive Administered Medications - up to 3 most recent administrations Medication Order MAR Action Action Date Dose Rate Site durvalumab (Imfinzi) 1,240 New Bag 12/20/2017 2:39 PM EDT 1,240 mg 274.8 mL/hr mg in sodium chloride 0.9% 274.8 mL infusion 1,240 mg, Intravenous, ONCE, 1 dose, On Stephanie 12/20/17 at 1500, Administer over 60 Minutes, No dose adjustments., Dose Ordered = 1329 mg (10 mg/kg). Pharmacist rounded dose per procedure. heparin, porcine 100 unit/mL flush 500 Given 12/20/2017 3:40 PM EDT 500 Units Units 500 Units, Intravenous, ONCE PRN, Starting on Stephanie 12/20/17 at 1335, Until Stephanie 12/20/17 at 1800, Line Care, Refer to Intravenous (IV) Procedure: Accessing Implanted Vascular Access Devices (274) procedure and/or Intravenous (IV) Job Aid: Adult Flushing & Catheter Care (4663) job aid for additional information regarding guidelines and administration., Routine sodium chloride 0.9 % flush 5-20 mL Given 12/20/2017 3:40 PM EDT 20 mLs 5-20 mL, Intravenous, EVERY 1 MIN PRN, Starting on Stephanie 12/20/17 at 1335, Until Stephanie 12/20/17 at 1800, Line Care, Flush pertains to all indwelling lines. Flush per protocol found in the job aid using the link provided on this medication record. Refer to Intravenous (IV) Job Aid: Adult Flushing & Catheter Care (1907) job aid for additional information regarding guidelines and administration., Routine documented in this encounter Care Teams Controller Coal Or Ore Relationship Specialty Start Date End Date Farzaneh Winkler, NOLAN PCP - General General Internal Medicine 06/05/[address] [place] [address] documented as of this encounter
--- OUTSIDE RECORDS SUMMARY | 2022-01-19 07:39 | XMS_ITS | Encounter Summary ---
:1950 Author Organization [place] [address] Care Team Providers Name Role Phone Farzaneh Winkler APRN Primary Care Provider Reason for Visit Reason Comments Chemotherapy Cycle 1, Day 1 -- Durvalumab Treatment/Therapy Plan Authorization (Routine) - Closed Specialty Diagnoses / Procedures Referred By Contact Refer red To Contact Diagnoses Primary lung adenocarcinoma, right Jonathan Bishop MD [facility] Hem Onc Infusion Procedures [place] CHEMOTHERAPY DRUG IMFINZI (DURVALUMAB) [address] [place] [address] 343 [address] [place] [address] Phone: Fax: Referral ID Status Reason Start Date Expiration Date Visits Requ ested Visits Authorized [id number] Closed 08/21/2017 09/07/2023 50 50 Encounter Details Date Type Department Care Team Description 09/11/2017 Infusion Hematology Oncology at [facility] lung adenocarcinoma, [facility] right [address] [place] [address] [phone] Social History Tobacco Use Types [...] encounter Progress Notes Cassi Martinez RN - 09/11/2017 11:30 AM EDT INFUSION THERAPY ADMINISTRATION NOTES DIAGNOSIS: NSCLC CYCLE #: Cycle 1, Day 1 -- Durvalumab REASON FOR VISIT: To receive chemotherapy SUBJECTIVE: Pierre offers no complaints. He does exhibit a frequent, congested cough. OBJECTIVE: Seen by provider. Ready to treat. LAB DATA: WBC - 8.48, H/H - 11.1/34.4, Plt Ct - 119, ANC - 6.51, Lytes wnl, BUN/CR - 23/1.45 IV ACCESS: Port accessed off site, flushes readily with brisk blood return. Pre administration: Chemotherapy orders independently verified for drug name, route, and dosage per patient's height, weight and BSA by Mike Martinez RN and Sonny Velázquez [facility]. REACTIONS (DESCRIPTION, TIME, INTERVENTION AND EFFECTIVENESS) none ASSESSMENT: Alin was awake, alert and tolerated treatment well. Port flushed with 20 cc of NS and 500 units of heparin and de-accessed. PLAN: Return to clinic in 2 weeks. documented in this encounter Plan of Treatment Upcoming Encounters Date Type Specialty Care Team Description 01/19/2022 Office Visit Hematology and Oncology Loan Burton, DITCHER OPERATOR [facility] HEMATOLOGY/[place] [address] 01/19/2022 Infusion Hematology and Oncology Canc eled (F-ARIA CANCEL) 01/25/2022 Hospital Gastroenterology Jose Clark MD [facility] [place] [address] 01/25/2022 Surgery Gastroenterology Jose Clark UPPE R GI R, MD ENDOSCOPY [facility] [place] [address] 01/26/2022 Office Visit Hematology and Oncology Fabian Cameron MD [facility] DR HEMATOLOGY/[place] [address] Loan Burton APRN [facility] HEMATOLOGY/[place] [address] 01/26/2022 Infusion Hematology and Oncology 02/02/2022 Office Visit Hematology and Oncology Fabian Cameron MD [facility] HEMATOLOGY/[place] [address] 02/02/2022 Infusion Hematology and Oncology 02/22/2022 Telephone Hematology and Oncology Siena Lloyd RD [facility] DRIVE HEMATOLOGY [place] [address] Scheduled Procedures Name Priority Associated Diagnoses Date/Time EGD, UPPER GI ENDOSCOPY EGD with stent vs 2021 12:00 PM EDT cryotherapy. documented as of this encounter Procedures Procedure Name Priority Date/Time Associated Diagnosis Comme nts LAB SCAN 09/11/2017 12:00 AM Results for this EDT procedure are i n the results section . CT SCAN (SCAN) 09/05/2017 12:00 AM Result s for this EDT procedure are i n the results section . documented in this encounter Results SCAN DOC: LAB (09/11/2017 12:00 AM EDT) Narrative 09/11/2017 12:00 AM EDT This result has an attachment that is no t available. Ordered by an unspecified provider. Scanning Provider MEDIA MGR SCAN EXT ORDR/RSLT SCAN DOC: CT SCAN (09/05/2017 12:00 AM EDT) Narrative 09/05/2017 12:00 AM EDT This result has an [...] Rate Site durvalumab (Imfinzi) 1,240 New Bag 09/11/2017 12:02 PM EDT 1,240 m g 275 mL/hr mg in sodium chloride 0.9% 274.8 mL infusion 1,240 mg, Intravenous, ONCE, 1 dose, On Sun09/11/17 at 1245, Administer over 60 Minutes, No dose adjustments. documented in this encounter Care Teams Napkin Machine Operator Relationship Specialty Start Date End Date Farzaneh Winkler APRN PCP - General General Internal Medicine 06/05/[address] [place] [address] documented as of this encounter
--- OUTSIDE RECORDS SUMMARY | 2022-01-19 07:39 | XMS_ITS | Encounter Summary ---
:1950 Author Organization [facility] [place] [address] Care Team Providers Name Role Phone Farzaneh Winkler APRN Primary Care Provider Reason for Visit Reason Comments Chemotherapy Cycle 12, Day 1; Durvalumab Treatment/Therapy Plan Authorization (Routine) - Closed Specialty Diagnoses / Procedures Referred By Contact Refer red To Contact Diagnoses Primary lung adenocarcinoma, right Jonathan Bishop MD [facility] Hem Onc Infusion Procedures [place] CHEMOTHERAPY DRUG IMFINZI (DURVALUMAB) [address] [place] [address] 8[address] [place] [address] Phone: Fax: Referral ID Status Reason Start Date Expiration Date Visits Requ ested Visits Authorized [id number] Closed 08/21/2017 09/07/2023 50 50 Encounter Details Date Type Department Care Team Description 02/14/2018 Infusion Hematology Oncology at [facility] lung adenocarcinoma, [facility] right [address] [place] [address] [phone] Social History Tobacco Use Types [...] Sign Reading Time Taken Comments Blood Pressure 138/66 02/14/2018 8:41 AM EDT Pulse 103 02/14/2018 8:41 AM EDT Temperature 36.5 ??C (97.7 ??F) 02/14/2018 8:41 AM EDT Respiratory Rate 20 02/14/2018 8:41 AM EDT Oxygen Saturation 95% 02/14/2018 8:41 AM EDT Inhaled Oxygen Concentration - - Weight 139.2 kg (306 lb 12.8 oz) 02/14/2018 8:41 AM EDT Height 180 cm (5' 10.87) 02/14/2018 8:41 AM EDT Body Mass Index 42.95 02/14/2018 8:41 AM EDT documented in this encounter Progress Notes Crissy Rodriguez RN - 02/14/2018 8:30 AM EDT INFUSION THERAPY ADMINISTRATION NOTES DIAGNOSIS: NSCLC CYCLE #12, Day 1 REASON FOR VISIT: Durvalumab infusion SUBJECTIVE: Pierre offers no complaints. OBJECTIVE LAB DATA: WNL for today's infusion, reviewed by nursing IV ACCESS: Mediport Accessed by OSH for labs, Brisk blood return. Pre administration: Chemotherapy orders independently verified for drug name, route, and dosage per patient's height, weight and BSA by CRISSY RODRIGUEZ, RN and On-site pharmacist. REACTIONS (DESCRIPTION, TIME, INTERVENTION AND EFFECTIVENESS) none ASSESSMENT: Alin was awake, alert and tolerated treatment well. Port flushed with 20 cc of NS and 500 units of heparin and de-accessed. PLAN: Return to clinic as schedualed. documented in this encounter Plan of Treatment Upcoming Encounters Date Type Specialty Care Team Description 01/19/2022 Office Visit Hematology and Oncology Loan Burton, POUCH MAKING MACHINE OPERATOR [facility] HEMATOLOGY/[place] [address] 01/19/2022 Infusion Hematology and Oncology Canc eleseema (Priya-ZACHERY MESACEL) 01/25/2022 Hospital Gastroenterology Jose Clark MD [facility] GASTROENTEROLOG [place] [address] 01/25/2022 Surgery Gastroenterology Jose Clark EGD, LOLA Yates MD ENDOSCOPY [facility] GASTROENTEROLOG [place] [address] 01/26/2022 Office Visit Hematology and Oncology Fabian Cameron MD [facility] DR HEMATOLOGY/[place] [address] Loan Burton APRN [facility] HEMATOLOGY/[place] [address] 01/26/2022 Infusion Hematology and Oncology 02/02/2022 Office Visit Hematology and Oncology Fabian Cameron MD [facility] DR HEMATOLOGY/[place] [address] 02/02/2022 Infusion Hematology and Oncology 02/22/2022 Telephone Hematology and Oncology Siena Lloyd, MUKUND [facility] DRIVE HEMATOLOGY [place] [address] Scheduled Procedures Name Priority Associated Diagnoses Date/Time EGD, UPPER GI ENDOSCOPY EGD with stent vs 2021 12:00 PM EDT cryotherapy. documented as of this encounter Visit Diagnoses Diagnosis Primary lung adenocarcinoma, right documented in this encounter Administered Medications Inactive Administered Medications - up to 3 most recent administrations Medication Order MAR Action Action Date Dose Rate Site durvalumab (Imfinzi) 1,240 New Bag 02/14/2018 9:38 AM EDT 1,240 mg 274.8 mL/hr mg in sodium chloride 0.9% 274.8 mL infusion 1,240 mg, Intravenous, ONCE, 1 dose, On Stephanie 02/14/18 at 1000, Administer over 60 Minutes, No dose adjustments. Dose Ordered = 1329 mg (10 mg/kg). Pharmacist rounded dose per procedure. heparin, porcine 100 unit/mL flush 500 Given 02/14/2018 10:51 AM EDT 500 Units Units 500 Units, Intravenous, ONCE PRN, Starting on Stephanie 02/14/18 at 0845, Until Stephanie 02/14/18 at 1303, Line Care, Refer to Intravenous (IV) Procedure: Accessing Implanted Vascular Access Devices (654) procedure and/or Intravenous (IV) Job Aid: Adult Flushing & Catheter Care (0009) job aid for additional information regarding guidelines and administration., Routine sodium chloride 0.9 % flush 5-20 mL Given 02/14/2018 10:51 AM EDT 20 mLs 5-20 mL, Intravenous, EVERY 1 MIN PRN, Starting on Stephanie 02/14/18 at 0845, Until Stephanie 02/14/18 at 1303, Line Care, Flush pertains to all indwelling lines. Flush per protocol found in the job aid using the link provided on this medication record. Refer to Intravenous (IV) Job Aid: Adult Flushing & Catheter Care (3198) job aid for additional information regarding guidelines and administration., Routine documented in this encounter Care Teams Blow Moulding Machine Operator Relationship Specialty Start Date End Date Farzaneh Winkler, NOLAN PCP - General General Internal Medicine 06/05/[address] [place] [id number] documented as of this encounter
--- OUTSIDE RECORDS SUMMARY | 2022-01-19 07:39 | XMS_ITS | Encounter Summary ---
:1950 Author Organization [facility] [place] [address] Care Team Providers Name Role Phone Farzaneh Winkler APRN Primary Care Provider Encounter Details Date Type Department Care Team Description 01/15/2018 Orders Only Hematology Oncology at [facility], Daria She[facility] lung [facility] RN adenocarcinoma, right [address] [place] [address] Social History Tobacco Use Types [...] Loan Burton APRN [facility] HEMATOLOGY/[place] [address] 01/19/2022 Infusion Hematology and Oncology Canc eled (F-ARIA CANCEL) 01/25/2022 Hospital Gastroenterology Jose Clark MD [facility] GASTROENTEROLOG [place] [address] 01/25/2022 Surgery Gastroenterology Jose Clark, LOLA Yates MD ENDOSCOPY [facility] DR GASTROENTEROLOG [place] [address] 01/26/2022 Office Visit Hematology and Oncology Fabian Cameron MD [facility] DR HEMATOLOGY/[place] [address] Loan Burton APRN [facility] DR HEMATOLOGY/[place] [address] 01/26/2022 Infusion Hematology and Oncology 02/02/2022 Office Visit Hematology and Oncology Fabian Cameron MD [facility] DR HEMATOLOGY/[place] [address] 02/02/2022 Infusion Hematology and Oncology 02/22/2022 Telephone Hematology and Oncology Siena Lloyd, MUKUND [facility] DRIVE HEMATOLOGY [place] [address] Scheduled Procedures Name Priority Associated Diagnoses Date/Time EGD, UPPER GI ENDOSCOPY EGD with stent vs 2021 12:00 PM EDT cryotherapy. documented as of this encounter Visit Diagnoses Diagnosis Primary lung adenocarcinoma, right documented in this encounter Care Teams Rack Loader Relationship Specialty Start Date End Date Farzaneh Winkler, PROGRAM DIRECTOR CABLE TELEVISION PCP - General General Internal Medicine 06/05/[address] [place] [phone] documented as of this encounter
--- OUTSIDE RECORDS SUMMARY | 2022-01-19 07:39 | XMS_ITS | Encounter Summary ---
:1950 Author Organization [facility] [place] [address] Care Team Providers Name Role Phone Farzaneh Winkler APRN Primary Care Provider Reason for Visit Reason Comments Lung Cancer Encounter Details Date Type Department Care Team Description 09/27/2017 Office Visit Hematology/Oncology Jonathan Bishop, Hyp othyroidism due to drugs; at [facility] Primary lung adenocarcinoma, right [address], [place] [address] [phone] Social History Tobacco Use Types Packs/Day Years [...] Sign Reading Time Taken Comments Blood Pressure 130/72 09/27/2017 12:45 PM EDT Pulse 116 09/27/2017 12:45 PM irr-irr apic al EDT Temperature 36.3 ??C (97.3 ??F) 09/27/2017 12:45 PM EDT Respiratory Rate 20 09/27/2017 12:45 PM EDT Oxygen Saturation 98% 09/27/2017 12:45 PM EDT Inhaled Oxygen Concentration - - Weight 127 kg (280 lb) 09/27/2017 12:45 PM EDT Height 180 cm (5' 10.87) 09/27/2017 12:45 PM copied EDT Body Mass Index 39.2 09/27/2017 12:45 PM EDT documented in this encounter Progress Notes Jonathan Bishop MD - 09/27/2017 12:30 PM EDT Images from the original note were not included. Diagnosis: Stage IIIa adenocarcinoma right upper lobe EGFR and ALK negative but PDL-1 90% positive Subjective: Alin comes in today for his second infusion of durvalumab. His first infusion was 2 weeks ago andwent well. He is continued to lose some weight however and simply notes that although he gets hungryhe gets Fallot's sooner so his meals have been smaller. He is also a bit more short of breath when he exerts. He is not having fever or chills no discomfort swallowing. He has a moderate amount of fatigue still. Review of systems though is negative for any other auto immune effects. His psoriasis is not flared. He has no skin rash. He is not having any nausea or vomiting and no diarrhea or other GI symptoms. His mouth is moist and there is no stomatitis and no eye problems either. Review of systems is otherwise negative. 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 [...] Negative. Neurological: Negative. Hematological: Negative for adenopathy. 09/27/17 09/11/17 08/21/17 Weight 127 kg (280 lb) 131.1 kg (289 lb) 132.9 kg (293 lb) Height 180 cm () [copied] 180 cm () [copied] 180 cm () [copied] BSA (Calculated - sq m) 2.52 sq meters 2.56 sq meters 2.58 sq meters BMI (Calculated) 39.2 40.46 41.02 Temp 36.3 ??C (97.3 ??F) 36.5 ??C (97.7 ??F) 36.7 ??C (98.1 ??F) Temp src Oral Oral Oral Heart Rate 116 [irr-irr apical] 103 110 Resp 20 22 21 BP 130/72 141/75 118/59 SpO2 98 % 99 % 97 % Karnofsky Score 70 80 80 Head: Normocephalic, without obvious abnormality, atraumatic Eyes: [...] Genetics RESULTS CONSULTATION CASE Outside case labeled [id number] ([id number]), collection date 05/28/2017. [facility] Tracking #: [id number] Report to: [facility] Department of Pathology [address] [place] [address] [place]., [place] ??[address] , , Ext [phone] Submitted for molecular testing only. ??This case has not been reviewed in ??its ??entirety. SPECIMEN ANALYZED: ?? [id number] (outside [id number]) Analysis: ??Examination of DNA extracted from formalin-fixed paraffin-embedded tumor ??tissue for somatic mutation analysis. Results: ??The following gene variants were identified in the submitted tissue: CLINICALLY ACTIONABLE VARIANTS: BRAF: ??NEGATIVE EGFR: ??NEGATIVE KRAS: ??MUTATION c.35G> T p.G12V Exon 2 PIK3CA: ??NEGATIVE OTHER DETECTED VARIANTS: N/A Interpretation: ?? After review of the pathology report and slides, the specimen ( [id number]) was selected for mutation analysis from [...] stained slide and 2 unstained slide(s) labeled [id number] ([id number]). Submitted for PD-L1 testing only. ??This case [...] CT scan of the chest done at [facility] on 09/05/2017 show that the [...] 3.6 cm. Laboratory today shows normal electrolytes except for slight decrease in sodium at 131 creatinine is1.23 which is improved ALP is 88 AST 13 ALT 19 TSH is 0.95 and T4 8.4 CBC shows white count of 5.0 hemoglobin 9.9 hematocrit 31.2 and platelet count 446 with a neutrophil count of 3.40 Assessment/plan: Alin is tolerating the durvalumab well with no autoimmune effects that I can tell. He does have aslight increase in the degree of anemia he has related to his chemotherapy and radiation therapy. That could cause a slight worsening of his dyspnea on exertion. I do not have a good explanation on exam or by history of why he is feeling more short of breath though however. We will continue to follow that closely. As far as the durvalumab he is fine today for treatment and will go ahead with that as planned. We will see him back in 2 weeks with labs and thyroid studies. documented in this encounter Plan of Treatment Upcoming Encounters Date Type Specialty Care Team Description 01/19/2022 Office Visit Hematology and Oncology Loan Burton, NOLAN [facility] HEMATOLOGY/[place] [address] 01/19/2022 Infusion Hematology and Oncology Canc eled (F-ARIA CANCEL) 01/25/2022 Hospital Gastroenterology Jose Clark MD [facility] [place] [address] 01/25/2022 Surgery Gastroenterology Jose Clark UPPE R GI R, MD ENDOSCOPY [facility] [place] [address] 01/26/2022 Office Visit Hematology and Oncology Fabian Cameron MD [facility] HEMATOLOGY/[place] [address] Loan Burton, NOLAN [facility] HEMATOLOGY/[place] [address] 01/26/2022 Infusion Hematology and Oncology 02/02/2022 Office Visit Hematology and Oncology Fabian Cameron MD [facility] HEMATOLOGY/[place] [address] 02/02/2022 Infusion Hematology and Oncology 02/22/2022 Telephone Hematology and Oncology Siena Lloyd RD [facility] DR[place] [address] Scheduled Procedures Name Priority Associated Diagnoses Date/Time EGD, UPPER GI ENDOSCOPY EGD with stent vs 2021 12:00 PM EDT cryotherapy. documented as of this encounter Procedures Procedure Name Priority Date/Time Associated Diagnosis Comme nts CT SCAN (SCAN) 09/05/2017 12:00 AM Result s for this EDT procedure are i n the results section . documented in this encounter Results SCAN DOC: CT SCAN (09/05/2017 12:00 AM EDT) Narrative 09/05/2017 12:00 AM EDT This result has an attachment that is no t available. Ordered by an unspecified provider. 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
--- OUTSIDE RECORDS SUMMARY | 2022-01-19 07:39 | XMS_ITS | Encounter Summary ---
:1950 Author Organization [facility] [place] [address] Care Team Providers Name Role Phone Farzaneh Winkler APRN Primary Care Provider Reason for Visit Reason Comments Lung Cancer Encounter Details Date Type Department Care Team Description 08/21/2017 Office Visit Hematology/Oncology Jonathan Bishop, [facility] lung adenocarcinoma, right; at [facility] Hypothyroidism due to drugs [address] [facility] [address] [facility] [place] [address] [phone] Social History Tobacco Use Types Packs/Day Years [...] Sign Reading Time Taken Comments Blood Pressure 118/59 08/21/2017 8:23 AM EST Pulse 110 08/21/2017 8:23 AM EST Temperature 36.7 ??C (98.1 ??F) 08/21/2017 8:23 AM EST Respiratory Rate 21 08/21/2017 8:23 AM EST Oxygen Saturation 97% 08/21/2017 8:23 AM EST Inhaled Oxygen Concentration - - Weight 132.9 kg (293 lb) 08/21/2017 8:23 AM EST Height 180 cm (5' 10.87) 08/21/2017 8:23 AM EST copied Body Mass Index 41.02 08/21/2017 8:23 AM EST documented in this encounter Progress Notes Jonathan Bishop MD - 08/21/2017 8:30 AM EST Images from the original note were [...] check a baseline CT scan at the [facility] before starting. 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 [...] Neurological: Negative. Hematological: Negative for adenopathy. BP 118/59 (Patient Position: Sitting) Pulse (!) 110 Temp 36.7 ??C (98.1 ??F) (Oral) Resp 21 Ht 180 cm (5' 10.87) Comment: copied Wt 132.9 kg (293 lb) SpO2 97% BMI 41.02 kg/m2 Head: Normocephalic, without obvious abnormality, atraumatic [...] Genetics RESULTS CONSULTATION CASE Outside case labeled [id number] ([id number]), collection date 05/28/2017. [facility] #: [id number] Report to: [facility] Department of Pathology [address] [place] [address] ??[id number] , , Ext [phone] Submitted for molecular testing only. ??This case has not been reviewed in ??its ??entirety. SPECIMEN ANALYZED: ?? [id number] (outside [id number]) Analysis: ??Examination of DNA extracted from formalin-fixed paraffin-embedded tumor ??tissue for somatic mutation analysis. Results: ??The following gene variants were identified in the submitted tissue: CLINICALLY ACTIONABLE VARIANTS: BRAF: ??NEGATIVE EGFR: ??NEGATIVE KRAS: ??MUTATION c.35G> T p.G12V Exon 2 PIK3CA: ??NEGATIVE OTHER DETECTED VARIANTS: N/A Interpretation: ?? After review of the pathology report and slides, the specimen ([id number]) was selected for mutation analysis from [...] stained slide and 2 unstained slide(s) labeled [id number] ([id number]). Submitted for PD-L1 testing only. ??This case [...] is issues or problems in the interim. documented in this encounter Miscellaneous Notes Addendum Note - Jonathan Bishop MD - 08/21/2017 1:15 PM EST Addended by: JONATHAN BISHOP on: 08/21/2017 01:15 PM Modules accepted: Orders documented in this encounter Plan of Treatment Upcoming Encounters Date Type Specialty Care Team Description 01/19/2022 Office Visit Hematology and Oncology Loan Burton, NOLAN [facility] HEMATOLOGY/[place] [address] 01/19/2022 Infusion Hematology and Oncology Can eled (F-ARIA CANCEL) 01/25/2022 Hospital Gastroenterology Jose Clark MD [facility] [place] [address] 01/25/2022 Surgery Gastroenterology Jose Clark UPPE R GI R, MD ENDOSCOPY [facility] [place] [address] 01/26/2022 Office Visit Hematology and Oncology Fabian Cameron MD [facility] HEMATOLOGY/[place] [address] Loan Burton APRN [facility] HEMATOLOGY/[place] [address] 01/26/2022 Infusion Hematology and Oncology 02/02/2022 Office Visit Hematology and Oncology Fabian Cameron MD [facility] HEMATOLOGY/[place] [address] 02/02/2022 Infusion Hematology and Oncology 02/22/2022 Telephone Hematology and Oncology Siena Lloyd RD [facility] DR[place] [address] Scheduled Procedures Name Priority Associated Diagnoses Date/Time EGD, UPPER GI ENDOSCOPY EGD with stent vs 2021 12:00 PM EDT cryotherapy. documented as of this encounter Procedures Procedure Name Priority Date/Time Associated Diagnosis Comme nts LAB SCAN 08/21/2017 12:00 AM Results for this EST procedure are i n the results section . documented in this encounter Results SCAN DOC: LAB (08/21/2017 12:00 AM EST) Narrative 08/21/2017 12:00 AM EST This result has an attachment that is no t available. Ordered by an unspecified provider. 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
--- OUTSIDE RECORDS SUMMARY | 2022-01-19 07:39 | XMS_ITS | Encounter Summary ---
:1950 Author Organization [facility] [place] [address] Care Team Providers Name Role Phone Farzaneh Winkler APRN Primary Care Provider Reason for Visit Reason Comments Chemotherapy Durvalumab, Cycle 10, Day 1 Treatment/Therapy Plan Authorization (Routine) - Closed Specialty Diagnoses / Procedures Referred By Contact Refer red To Contact Diagnoses Primary lung adenocarcinoma, right Jonathan Bishop MD [facility] Hem Onc Infusion Procedures [place] CHEMOTHERAPY DRUG IMFINZI (DURVALUMAB) [address] [place] [address] 7[address] [place] [address] Phone: Fax: Referral ID Status Reason Start Date Expiration Date Visits Requ ested Visits Authorized [id number] Closed 08/21/2017 09/07/2023 50 50 Encounter Details Date Type Department Care Team Description 01/17/2018 Infusion Hematology Oncology at [facility] lung adenocarcinoma, [facility] right [address] [place] [phone] Social History Tobacco Use Types [...] encounter Progress Notes Carrie Chery RN - 01/17/2018 2:00 PM EDT INFUSION THERAPY ADMINISTRATION NOTES DIAGNOSIS: NSCLC CYCLE #10, Day 1 REASON FOR VISIT: Durvalumab infusion SUBJECTIVE: Pierre hollis no complaints. OBJECTIVE: Seen by provider. Ready [...] Visit Hematology and Oncology Loan Burton APRN [facility] HEMATOLOGY/[place] [address] 01/19/2022 Infusion Hematology and Oncology Canc eled (F-ARIA CANCEL) 01/25/2022 Hospital Gastroenterology Jose Clark MD [facility] [place] [address] 01/25/2022 Surgery Gastroenterology Jose Clark UPPE R GI R, MD ENDOSCOPY [facility] [place] [address] 01/26/2022 Office Visit Hematology and Oncology Fabian Cameron MD [facility] HEMATOLOGY/[place] [address] Loan Burton APRN [facility] HEMATOLOGY/[place] [address] 01/26/2022 Infusion Hematology and Oncology 02/02/2022 Office Visit Hematology and Oncology Fabian Cameron MD [facility] HEMATOLOGY/[place] [address] 02/02/2022 Infusion Hematology and Oncology 02/22/2022 Telephone Hematology and Oncology Siena Lloyd RD [facility] DRIVE [place] [address] Scheduled Procedures Name Priority Associated Diagnoses Date/Time EGD, UPPER GI ENDOSCOPY EGD with stent vs 2021 12:00 PM EDT cryotherapy. documented as of this encounter Visit Diagnoses Diagnosis Primary lung adenocarcinoma, right documented in this encounter Administered Medications Inactive Administered Medications - up to 3 most recent administrations Medication Order MAR Action Action Date Dose Rate Site durvalumab (Imfinzi) 1,240 New Bag 01/17/2018 2:34 PM EDT 1,240 mg 274.8 mL/hr mg in sodium chloride 0.9% 274.8 mL infusion 1,240 mg, Intravenous, ONCE, 1 dose, On Stephanie 18 at 1515, Administer over 60 Minutes, No dose adjustments., Dose Ordered = 1329 mg (10 mg/kg). Pharmacist rounded dose per procedure. heparin, porcine 100 unit/mL flush 500 Given 01/17/2018 3:44 PM EDT 500 Units Units 500 Units, Intravenous, ONCE PRN, Starting on Stephanie 818 at 1356, Until Stephanie 818 at 1745, Line Care, Refer to Intravenous (IV) Procedure: Accessing Implanted Vascular Access Devices (294) procedure and/or Intravenous (IV) Job Aid: Adult Flushing & Catheter Care (6313) job aid for additional information regarding guidelines and administration., Routine sodium chloride 0.9 % flush 5-20 mL Given 01/17/2018 3:44 PM EDT 20 mLs 5-20 mL, Intravenous, EVERY 1 MIN PRN, Starting on Stephanie 01/17/18 at 1356, Until Stephanie 01/17/18 at 1745, Line Care, Flush pertains to all indwelling lines. Flush per protocol found in the job aid using the link provided on this medication record. Refer to Intravenous (IV) Job Aid: Adult Flushing & Catheter Care (8480) job aid for additional information regarding guidelines and administration., Routine documented in this encounter Care Teams Experimental Psychologist Relationship Specialty Start Date End Date Farzaneh Winkler, METAL FURNITURE PANEL COVERER PCP - General General Internal Medicine 06/05/[address] [place] [address] documented as of this encounter
--- OUTSIDE RECORDS SUMMARY | 2022-01-19 07:39 | XMS_ITS | Encounter Summary ---
:1950 Author Organization [facility] [place] [address] Care Team Providers Name Role Phone Farzaneh Winkler APRN Primary Care Provider Reason for Visit Reason Comments Lung Cancer Encounter Details Date Type Department Care Team Description 10/11/2017 Office Visit Hematology/Oncology Jonathan Bishop, [facility] lung adenocarcinoma, right; at [facility] Hypothyroidism due to drugs [address] [facility] [address] [facility], [place] [address] [phone] Social History Tobacco Use Types Packs/Day Years [...] Sign Reading Time Taken Comments Blood Pressure 123/62 10/11/2017 10:52 AM EDT Pulse 107 10/11/2017 10:52 AM EDT Temperature 36.3 ??C (97.3 ??F) 10/11/2017 10:52 AM EDT Respiratory Rate 24 10/11/2017 10:52 AM EDT Oxygen Saturation 98% 10/11/2017 10:52 AM EDT Inhaled Oxygen Concentration - - Weight 130.6 kg (288 lb) 10/11/2017 10:52 AM EDT Height 180 cm (5' 10.87) 10/11/2017 10:52 AM EDT sandeep stephenson Body Mass Index 40.32 10/11/2017 10:52 AM EDT documented in this encounter Progress Notes Jonathan Bishop MD - 10/11/2017 11:00 AM EDT Images from the original note were not included. Diagnosis: Stage IIIa adenocarcinoma right upper lobe EGFR and ALK negative but PDL-1 90% positive Subjective: Alin comes in today for his third infusion of durvalumab. His first infusion was 4 weeks ago and went well. Swallowing is better and his weight is coming back up to baseline. He has a little bit of a cough but no hemoptysis no wheezing no increased shortness of breath. His bowels are fine has nothing to suggest any colitis or enteritis. He is not having any itching rashes or other problems no dry mouth and no dry eyes. Review of systems is otherwise negative. Past [...] [employer] for 8 months ??? 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 [...] Negative. Neurological: Negative. Hematological: Negative for adenopathy. 10/11/17 09/27/17 09/11/17 Weight 130.6 kg (288 lb) 127 kg (280 lb) 131.1 kg (289 lb) Height 180 cm (5' 10.87) [copied] 180 cm (5' 10.87) [copied] 180 cm (5' 10.87) [copied] BSA (Calculated - sq m) 2.56 sq meters 2.52 sq meters 2.56 sq meters BMI (Calculated) 40.32 39.2 40.46 Temp 36.3 ??C (97.3 ??F) 36.3 ??C (97.3 ??F) 36.5 ??C (97.7 ??F) Temp src Oral Oral Oral Heart Rate 107 116 [irr-irr apical] 103 Resp 24 20 22 BP 123/62 130/72 141/75 SpO2 98 % 98 % 99 % Pain Level 6 [chronic low back pain, no better, no worse] 6 [chronic lower back pain] 6 [lower back pain] Karnofsky Score 80 70 80 Head: Normocephalic, without obvious abnormality, atraumatic [...] Genetics RESULTS CONSULTATION CASE Outside case labeled [id number] ([id number]), collection date 05/28/2017. [facility] [place] Tracking #: [id number] Report to: [facility] Department of Pathology [address] [place], [place] [address]., [place] ??[id number] , , Ext [phone] Submitted for molecular testing only. ??This case has not been reviewed in ??its ??entirety. SPECIMEN ANALYZED: ?? [id number] (outside [id number]) Analysis: ??Examination of DNA extracted from formalin-fixed paraffin-embedded tumor ??tissue for somatic mutation analysis. Results: ??The following gene variants were identified in the submitted tissue: CLINICALLY ACTIONABLE VARIANTS: BRAF: ??NEGATIVE EGFR: ??NEGATIVE KRAS: ??MUTATION c.35G> T p.G12V Exon 2 PIK3CA: ??NEGATIVE OTHER DETECTED VARIANTS: N/A Interpretation: ?? After review of the pathology report and slides, the specimen ([facility] [id number]) was selected for mutation analysis from [...] stained slide and 2 unstained slide(s) labeled [id number] ([id number]). Submitted for PD-L1 testing only. ??This case [...] = 53 mg Laboratory today is r [facility] ONCOLOGY (AMB) 07/19/2017 Day, Cycle Day 8, [...] mg/m2/dose = 53 mg [facility] ONCOLOGY (AMB) 08/16/2017 Day, Cycle Day 29, Cycle 1 CARBOplatin (PARAPLATIN) IV 292 mg DOCEtaxel (TAXOTERE) IV 20 mg/m2/dose = 53 mg [facility] ONCOLOGY (AMB) 08/21/2017 Day, Cycle Day 36, Cycle 1 CARBOplatin (PARAPLATIN) IV 300 mg DOCEtaxel (TAXOTERE) IV 20 mg/m2/dose = 53 mg [facility] ONCOLOGY (AMB) 09/11/2017 Day, Cycle Day 1, Cycle 1 CARBOplatin (PARAPLATIN) IV DOCEtaxel (TAXOTERE) IV durvalumab (Imfinzi) IV 1,240 mg [facility] ONCOLOGY (AMB) 09/27/2017 Day, Cycle Day 1, Cycle 2 CARBOplatin (PARAPLATIN) IV DOCEtaxel (TAXOTERE) IV durvalumab (Imfinzi) IV 1,240 mg Review of his CT scan of the chest done at [facility] on 09/05/2017 show that the primary [...] 3.7 cm to 4.1 x 3.6 cm. Review of his lab today shows improvement in his CBC with a white count of 11.6 hemoglobin is back up to 10.9 hematocrit 34.3 and platelets 499 absolute neutrophil count 8.6 CMP shows improvement in sodium to 133 normal electrolytes otherwise creatinine is 1.37 calcium 9.3 and liver tests normal with AST of 16 and ALT of 16 T4 is 8.3 TSH last time was 0.95 Assessment/plan: Alin is fine today for a third infusion of durvalumab. We will go ahead with that. He is exhibiting no autoimmune effects at all and his respiratory status is stable to slightly improved. Certainly his blood counts are recovering now that he is getting away from the systemic chemoradiation therapy and is now only on the checkpoint inhibitor. We will go ahead with today's infusion set one up for 2 weeks from now and see him back in a month for recheck. Plans are reviewed and we will be restaging him after 3 months on the checkpoint inhibitor. documented in this encounter Miscellaneous Notes Addendum Note - Jonathan Bishop MD - 10/11/2017 11:39 AM EDT Addended by: JONATHAN BISHOP on: 10/11/2017 11:39 AM Modules accepted: Orders documented in this encounter Plan of Treatment Upcoming Encounters Date Type Specialty Care Team Description 01/19/2022 Office Visit Hematology and Oncology Loan Burton, NOLAN [facility] HEMATOLOGY/[place] [address] 01/19/2022 Infusion Hematology and Oncology Canc eled (F-ARIA CANCEL) 01/25/2022 Hospital Gastroenterology Jose Clark MD [facility] [place] [address] 01/25/2022 Surgery Gastroenterology Jose Clark UPPE R GI R, MD ENDOSCOPY [facility] [place] [address] 01/26/2022 Office Visit Hematology and Oncology Fabian Cameron MD [facility] DR HEMATOLOGY/[place] [address] Loan Burton APRN [facility] HEMATOLOGY/[place] [address] 01/26/2022 Infusion Hematology and Oncology 02/02/2022 Office Visit Hematology and Oncology Fabian Cameron MD [facility] DR HEMATOLOGY/[place] [address] 02/02/2022 Infusion Hematology and Oncology 02/22/2022 Telephone Hematology and Oncology Siena Lloyd RD [facility] DRIVE HEMATOLOGY [place] [address] Scheduled Procedures Name Priority Associated Diagnoses Date/Time EGD, UPPER GI ENDOSCOPY EGD with stent vs 2021 12:00 PM EDT cryotherapy. documented as of this encounter Procedures Procedure Name Priority Date/Time Associated Diagnosis Comme nts LAB SCAN 10/11/2017 12:00 AM Results for this EDT procedure are i n the results section . LAB SCAN 10/11/2017 12:00 AM Results for this EDT procedure are i n the results section . documented in this encounter Results SCAN DOC: LAB (10/11/2017 12:00 AM EDT) Narrative 10/11/2017 12:00 AM EDT This result has an attachment that is no t available. Ordered by an unspecified provider. Scanning Provider MEDIA MGR SCAN EXT ORDR/RSLT SCAN DOC: LAB (10/11/2017 12:00 AM EDT) Narrative 10/11/2017 12:00 AM EDT This result has an attachment that is no t available. Ordered by an unspecified provider. 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
--- OUTSIDE RECORDS SUMMARY | 2022-01-19 07:39 | XMS_ITS | Encounter Summary ---
:1950 Author Organization [facility] [place] [address] Care Team Providers Name Role Phone Farzaneh Winkler APRN Primary Care Provider Reason for Visit Reason Comments Lung Cancer Encounter Details Date Type Department Care Team Description 12/06/2017 Office Visit Hematology/Oncology Jonathan Bishop, [facility] lung adenocarcinoma, right; at [facility] Hypothyroidism due to drugs [address] [facility] [place] [address] [phone] Social History Tobacco Use Types Packs/Day Years [...] Reading Time Taken Comments Blood Pressure 136/64 12/06/2017 8:27 AM EDT Pulse 92 12/06/2017 8:27 AM EDT Temperature 36.3 ??C (97.3 ??F) 12/06/2017 8:27 AM EDT Respiratory Rate 18 12/06/2017 8:27 AM EDT Oxygen Saturation 97% 12/06/2017 8:27 AM EDT Inhaled Oxygen Concentration - - Weight 136.5 kg (301 lb) 12/06/2017 8:27 AM EDT Height 180 cm (5' 10.87) 12/06/2017 8:27 AM EDT copied Body Mass Index 42.14 12/06/2017 8:27 AM EDT documented in this encounter Progress Notes Jonathan Bishop MD - 12/06/2017 8:30 AM EDT Images from the original note were not included. 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 He continues to do well and really notes no side effects whatsoever from the infusions. He is not having any skin rashes no mouth sores of mouth dryness abdominal discomfort whatsoever. He has no diarrhea with basically a negative review of systems. Past medical history and social history are reviewed and unchanged from when I saw him 4 weeks ago. 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 [...] Neurological: Negative. Hematological: Negative for adenopathy. BP 136/64 (Patient Position: Sitting) Pulse 92 Temp 36.3 ??C (97.3 ??F) (Oral) Resp 18 Ht 180 cm (5' 10.87) Comment: copied Wt (!) 136.5 kg (301 lb) SpO2 97% BMI 42.14 kg/m2 Head: Normocephalic, without obvious abnormality, atraumatic [...] Genetics RESULTS CONSULTATION CASE Outside case labeled [id number] ([id number]), collection date 05/28/2017. [facility] Tracking #: [id number] Report to: [facility] Department of Pathology [address] [place] [address] ??[id number] , , Ext [phone] Submitted for molecular testing only. ??This case has not been reviewed in ??its ??entirety. SPECIMEN ANALYZED: ?? [id number] (outside [id number]) Analysis: ??Examination of DNA extracted from formalin-fixed paraffin-embedded tumor ??tissue for somatic mutation analysis. Results: ??The following gene variants were identified in the submitted tissue: CLINICALLY ACTIONABLE VARIANTS: BRAF: ??NEGATIVE EGFR: ??NEGATIVE KRAS: ??MUTATION c.35G> T p.G12V Exon 2 PIK3CA: ??NEGATIVE OTHER DETECTED VARIANTS: N/A Interpretation: ?? After review of the pathology report and slides, the specimen ([id number]) was selected for mutation analysis from [...] stained slide and 2 unstained slide(s) labeled [id number] ([id number]). Submitted for PD-L1 testing only. ??This case [...] CT scan of the chest done at [facility] on 09/05/2017 show that the [...] 4.1 x 3.6 cm. Review of his laboratory today shows a white count of 11.69 hemoglobin 11.3 hematocrit 36.1 and platelet count 370,000. Absolute neutrophil count 9730. CMP shows normal electrolytes a creatinine of 1.12 glucose 105 calcium 8.6 albumin of 2.7 T4 is 8.0 with a TSH of 1.38 Assessment/plan: Alin is fine today for another infusion of durvalumab. We discussed restaging after the completion of his combined chemoradiation therapy this past August. I had like to give it 4 months before repeating another PET scan in the need to get that [facility] so we discussed today doing the study at the [place] in mid December. We will hold off on ordering that until we get closer to the date. He is certainly tolerating the checkpoint inhibitor without any autoimmune effects right now and his breathingis certainly been fine with no new pulmonary symptoms or other difficulties. We will see him back rocio couple weeks with lab including thyroid studies. His treatment associated anemia is slowly improving with rest of his lab doing quite well. Liver tests are also fine so there is no evidence for any autoimmune problems or thyroid dysfunction. documented in this encounter Plan of Treatment Upcoming Encounters Date Type Specialty Care Team Description 01/19/2022 Office Visit Hematology and Oncology Loan Burton, [facility] HEMATOLOGY/[place] [address] 01/19/2022 Infusion Hematology and Oncology Canc eled (F-ARIA CANCEL) 01/25/2022 Hospital Gastroenterology Jose Clark MD [facility] [place] [address] 01/25/2022 Surgery Gastroenterology Jose Clark UPPE R GI R, MD ENDOSCOPY [facility] [place] [address] 01/26/2022 Office Visit Hematology and Oncology Fabian Cameron MD [facility] HEMATOLOGY/[place] [address] Loan Burton, [facility] HEMATOLOGY/[place] [address] 01/26/2022 Infusion Hematology and Oncology 02/02/2022 Office Visit Hematology and Oncology Fabian Cameron MD [facility] HEMATOLOGY/[place] [address] 02/02/2022 Infusion Hematology and Oncology 02/22/2022 Telephone Hematology and Oncology Siena Lloyd RD [facility] DRIVE [place] [address] Scheduled Procedures Name Priority Associated Diagnoses Date/Time EGD, UPPER GI ENDOSCOPY EGD with stent vs 2021 12:00 PM EDT cryotherapy. 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
--- OUTSIDE RECORDS SUMMARY | 2022-01-19 07:39 | XMS_ITS | Encounter Summary ---
:1950 Author Organization [facility] [place] [address] Care Team Providers Name Role Phone JoenamanFarzaneh Daria TRUCK SALES REPRESENTATIVE Primary Care Provider Encounter Details Date Type Department Care Team Description 11/08/2017 Office Visit Hematology/Oncology Julee Pratt, Prim pilar lung at [facility] TRUCK SALES REPRESENTATIVE adenocarcinoma, right [address] [place], [place] [address] [place] [phone] (Wo rk) Social History Tobacco Use Types [...] Sign Reading Time Taken Comments Blood Pressure 149/66 11/08/2017 10:41 AM EDT Pulse 101 11/08/2017 10:41 AM EDT Temperature 36.7 ??C (98.1 ??F) 11/08/2017 10:41 AM EDT Respiratory Rate 16 11/08/2017 10:41 AM EDT Oxygen Saturation 96% 11/08/2017 10:41 AM EDT Inhaled Oxygen Concentration - - Weight 132.9 kg (293 lb) 11/08/2017 10:41 AM EDT Height 180 cm (5' 10.87) 11/08/2017 10:41 AM EDT Body Mass Index 41.02 11/08/2017 10:41 AM EDT documented in this encounter Progress Notes Santa Julee A, TRUCK SALES REPRESENTATIVE - 11/08/2017 11:00 AM EDT Diagnosis: Stage IIIa adenocarcinoma right upper lobe EGFR and ALK negative but PDL-1 90% positive Subjective: Alin comes in today for his 4th infusion of durvalumab. His first infusion was 4 weeks ago and went well. Swallowing is better and his weight is coming backup to baseline. He has a little bit of a clear but relatively non productive cough but no hemoptysisno wheezing no increased shortness of breath and in fact thinks it might be a little better. 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 Smoking [...] Neurological: Negative. Hematological: Negative for adenopathy. BP 149/66 (Patient Position: Sitting) Pulse (!) 101 Temp 36.7 ??C (98.1 ??F) (Oral) Resp 16 Ht 180 cm (5' 10.87) Wt 132.9 kg (293 lb) SpO2 96% BMI 41.02 kg/m2 Wt Readings from Last 3 Encounters: 11/08/17 132.9 kg (293 lb) 10/25/17 134.3 kg (296 lb) 10/11/17 130.6 kg (288 lb) Physical Exam Constitutional: He is oriented to person, place, and time. He appears well-developed. Morbidly obese HENT: Head: Normocephalic. Eyes: Conjunctivae are normal. Pupils are equal, round, and reactive to light. Neck: Normal range of motion. Neck supple. Cardiovascular: Normal rate and regular rhythm. Pulmonary/Chest: Effort normal and breath sounds normal. Abdominal: Soft. There is no tenderness. Musculoskeletal: Normal range of motion. He exhibits no edema. Lymphadenopathy: He has no cervical adenopathy. Neurological: He is alert and oriented to person, place, and time. He has normal reflexes. Skin: Skin is warm and dry. Psychiatric: He has a normal mood and affect. His behavior is normal. Labs: 11/08/17 WBC 10.95 hemoglobin 11.4 platelets 379 ANC 8.67 CMP: Sodium 133 potassium 4.4 BUN 12 creatinine 1.33 glucose 111 calcium 9.1 total bili 0.4 AST 15 ALT 17 alk phos 83 total protein 8.1 albumin 3.0 TSH 1.11 T4 8.2 [facility] 09/11/2017 09/27/2017 10/11/2017 Day, Cycle Day 1, Cycle 1 Day 1, Cycle 2 Day 1, Cycle 3 CARBOplatin (PARAPLATIN) IV DOCEtaxel (TAXOTERE) IV durvalumab (Imfinzi) IV 1,240 mg 1,240 mg 1,240 mg [facility] (AMB) 10/25/2017 Day, Cycle Day 1, Cycle 4 CARBOplatin (PARAPLATIN) IV DOCEtaxel (TAXOTERE) IV durvalumab (Imfinzi) IV 1,240 mg Assessment/plan: Alin is here today for his 4th infusion of durvalumab. We will go ahead with that. He is exhibiting no autoimmune effects at all and his respiratory statusis stable to slightly improved with respect to his breathing. Blood counts are recovering now that he is getting away from the systemic chemoradiation therapy and is now only on the checkpoint inhibitor q2wks. We will go ahead with today's infusion set one up for 2 weeks from now [facility]. Plans are reviewed and we will be restaging him after 3 months on the checkpoint inhibitor. Julee Pratt, MSN, FINANCIAL REPORTING ADVISOR, AOCN Hematology/Oncology Nurse Practitioner [place], [place] [phone] documented in this encounter Plan of Treatment Upcoming Encounters Date Type Specialty Care Team Description 01/19/2022 Office Visit Hematology and Oncology Loan Burton APRN [facility] HEMATOLOGY/[place] [address] 01/19/2022 Infusion Hematology and Oncology Canc eled (F-ARIA CANCEL) 01/25/2022 Hospital Gastroenterology Jose Clark MD [facility] [place] [address] 01/25/2022 Surgery Gastroenterology Jose Clark UPPE R GI R, MD ENDOSCOPY [facility] [place] [address] 01/26/2022 Office Visit Hematology and Oncology Fabian Cameron MD [facility] HEMATOLOGY/[place] [address] Loan Burton APRN [facility] HEMATOLOGY/[place] [address] 01/26/2022 Infusion Hematology and Oncology 02/02/2022 Office Visit Hematology and Oncology Fabian Cameron MD [facility] HEMATOLOGY/[place] [address] 02/02/2022 Infusion Hematology and Oncology 02/22/2022 Telephone Hematology and Oncology Siena Lloyd, [facility] DRIVE [place] [address] Scheduled Procedures Name Priority Associated Diagnoses Date/Time EGD, UPPER GI ENDOSCOPY EGD with stent vs 2021 12:00 PM EDT cryotherapy. documented as of this encounter Procedures Procedure Name Priority Date/Time Associated Diagnosis Comme nts LAB SCAN 11/08/2017 12:00 AM Results for this EDT procedure are i n the results section . LAB SCAN 10/25/2017 12:00 AM Results for this EDT procedure are i n the results section . documented in this encounter Results SCAN DOC: LAB (11/08/2017 12:00 AM EDT) Narrative 11/08/2017 12:00 AM EDT This result has an attachment that is no t available. Ordered by an unspecified provider. Scanning Provider MEDIA MGR SCAN EXT ORDR/RSLT SCAN DOC: LAB (10/25/2017 12:00 AM EDT) Narrative 10/25/2017 12:00 AM EDT This result has an attachment that is no t available. Ordered by an unspecified provider. Scanning Provider MEDIA MGR SCAN EXT ORDR/RSLT documented in this encounter Visit Diagnoses Diagnosis Primary lung adenocarcinoma, right documented in this encounter Care Teams Search Developer Relationship Specialty Start Date End Date Farzaneh Winkler, TRUCK SALES REPRESENTATIVE PCP - General General Internal Medicine 06/05/[address] [place] [phone] documented as of this encounter
--- OUTSIDE RECORDS SUMMARY | 2022-01-19 07:39 | XMS_ITS | Encounter Summary ---
:1950 Author Organization [facility] [place] [address] Care Team Providers Name Role Phone Farzaneh Winkler APRN Primary Care Provider Reason for Visit Reason Comments Lung Cancer Encounter Details Date Type Department Care Team Description 01/17/2018 Office Visit Hematology/Oncology Jonathan Bishop, [facility] lung adenocarcinoma, right; at [facility] Hypothyroidism due to drugs [address] [facility] [place] [address] [phone] Social History Tobacco Use Types Packs/Day Years [...] Sign Reading Time Taken Comments Blood Pressure 122/77 01/17/2018 1:12 PM EDT Pulse 106 01/17/2018 1:12 PM EDT Temperature 37.2 ??C (99 ??F) 01/17/2018 1:12 PM EDT Respiratory Rate 22 01/17/2018 1:12 PM EDT Oxygen Saturation 96% 01/17/2018 1:12 PM EDT Inhaled Oxygen Concentration - - Weight 137.9 kg (304 lb) 01/17/2018 1:12 PM EDT Height 180 cm (5' 10.87) 01/17/2018 1:12 PM EDT copied Body Mass Index 42.56 01/17/2018 1:12 PM EDT documented in this encounter Progress Notes Jonathan Bishop MD - 01/17/2018 1:30 PM EDT Images from the original note [...] [employer] for 8 months ??? 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 Hematological: Negative for adenopathy. BP 122/77 (Patient Position: Sitting) Pulse (!) 106 Temp 37.2 ??C (99 ??F) (Oral) Resp 22 Ht180 cm (5' 10.87) Comment: copied Wt (!) 137.9 kg (304 lb) SpO2 96% BMI 42.56 kg/m2 Head: Normocephalic, without obvious abnormality, atraumatic [...] Genetics RESULTS CONSULTATION CASE Outside case labeled [id number] ([id number]), collection date 05/28/2017. [facility] Tracking #: [id number] Report to: [facility] Department of Pathology [address] [place] [address] ??[id number] , , Ext [phone] Submitted for molecular testing only. ??This case has not been reviewed in ??its ??entirety. SPECIMEN ANALYZED: ?? [id number] (outside [id number]) Analysis: ??Examination of DNA extracted from formalin-fixed paraffin-embedded tumor ??tissue for somatic mutation analysis. Results: ??The following gene variants were identified in the submitted tissue: CLINICALLY ACTIONABLE VARIANTS: BRAF: ??NEGATIVE EGFR: ??NEGATIVE KRAS: ??MUTATION c.35G> T p.G12V Exon 2 PIK3CA: ??NEGATIVE OTHER DETECTED VARIANTS: N/A Interpretation: ?? After review of the pathology report and slides, the specimen ([id number]) was selected for mutation analysis from [...] stained slide and 2 unstained slide(s) labeled [id number] ([id number]). Submitted for PD-L1 testing only. ??This case [...] (Imfinzi) IV 1,240 mg [facility] ONCOLOGY (AMB) 01/03/2018 Day, Cycle Day 1, Cycle 9 CARBOplatin (PARAPLATIN) IV DOCEtaxel (TAXOTERE) IV durvalumab (Imfinzi) IV 1,240 mg Review of his CT scan of the chest done at [facility] on 09/05/2017 show that the [...] 3.7 cm to 4.1 x 3.[address] scan done a few days ago at [facility] shows that the mass is gone down further now down to 2.1cm. The lymph nodes are all less than 1 cm. He continues to have 2 stable masses on the right adrenal that may not be metastatic tumor and does have now post radiation a moderate asymptomatic right effusion. Laboratory today shows normal electrolytes creatinine 1.43 which is baseline ALP of 101 TSH of 1.0 T4 of 9.2. CBC shows a white count of 2.02 hemoglobin 12.3 hematocrit 39.1 and platelet count of 356 absolute neutrophil count is 9.18. Assessment/plan: Alin is continuing to do exceedingly well with the treatment. The tumor mass in his lung has continued to shrink and it has actually shrunk more than one would expect if that was simply a continuation of the response from chemotherapy and radiation therapy. In that regard he may be getting some benefit from the durvalumab. I think the effusion needs to be watched but at this point in time it certainly could be treatment related as far as his radiation therapy goes. Further evaluation would be indicated if he becomes symptomatic with that and it worsens. As far as autoimmune effects from the treatment there is really no problems there and he certainly tolerating things well. We will set him up for the next few treatments and continue follow-up checking lab prior to each infusion. He will call if there is issues in the interim. Laboratory today shows shows a white count [...] Hematology and Oncology Loan Burton APRN [facility] HEMATOLOGY/[place] [address] 01/19/2022 Infusion Hematology and Oncology Canc eled (F-ARIA CANCEL) 01/25/2022 Hospital Gastroenterology Jose Clark MD [facility] [place] [address] 01/25/2022 Surgery Gastroenterology Jose Clark UPPE R GI R, MD ENDOSCOPY [facility] [place] [address] 01/26/2022 Office Visit Hematology and Oncology Fabian Cameron MD [facility] HEMATOLOGY/[place] [address] Loan Burton APRN [facility] HEMATOLOGY/[place] [address] 01/26/2022 Infusion Hematology and Oncology 02/02/2022 Office Visit Hematology and Oncology Fabian Cameron MD [facility] HEMATOLOGY/[place] [address] 02/02/2022 Infusion Hematology and Oncology 02/22/2022 Telephone Hematology and Oncology Siena Lloyd RD [facility] DRIVE [place] [address] Scheduled Procedures Name Priority Associated Diagnoses Date/Time EGD, UPPER GI ENDOSCOPY EGD with stent vs 2021 12:00 PM EDT cryotherapy. documented as of this encounter Procedures Procedure Name Priority Date/Time Associated Diagnosis Comme nts LAB SCAN 01/31/2018 12:00 AM Results for this EDT procedure are i n the results section . CT SCAN (SCAN) 01/15/2018 12:00 AM Result s for this EDT procedure are i n the results section . LAB SCAN 01/15/2018 12:00 AM Results for this EDT procedure are i n the results section . documented in this encounter Results SCAN DOC: LAB (01/31/2018 12:00 AM EDT) Narrative 01/31/2018 12:00 AM EDT This result has an attachment that is no t available. Ordered by an unspecified provider. Scanning Provider MEDIA MGR SCAN EXT ORDR/RSLT SCAN DOC: CT SCAN (01/15/2018 12:00 AM EDT) Narrative 01/15/2018 12:00 AM EDT This result has an attachment that is no t available. Ordered by an unspecified provider. Scanning Provider MEDIA MGR SCAN EXT ORDR/RSLT SCAN DOC: LAB (01/15/2018 12:00 AM EDT) Narrative 01/15/2018 12:00 AM EDT This result has an attachment that is no t available. Ordered by an unspecified provider. 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
--- OUTSIDE RECORDS SUMMARY | 2022-01-19 07:39 | XMS_ITS | Encounter Summary ---
:1950 Author Organization [facility] [place] [address] Care Team Providers Name Role Phone Farzaneh Winkler APRN Primary Care Provider Reason for Visit Reason Comments Chemotherapy Durvalumab, Cycle 9, Day 1 Treatment/Therapy Plan Authorization (Routine) - Closed Specialty Diagnoses / Procedures Referred By Contact Refer red To Contact Diagnoses Primary lung adenocarcinoma, right Jonathan Bishop MD [facility] Hem Onc Infusion Procedures [place] CHEMOTHERAPY DRUG IMFINZI (DURVALUMAB) [address] [place] [address] 048 [address] [place] [address] Phone: Fax: Referral ID Status Reason Start Date Expiration Date Visits Requ ested Visits Authorized [id number] Closed 08/21/2017 09/07/2023 50 50 Encounter Details Date Type Department Care Team Description 01/03/2018 Infusion Hematology Oncology at [facility] lung adenocarcinoma, [facility] right [address] [place] [phone] Social History Tobacco Use Types [...] encounter Progress Notes Carrie Chery RN - 01/03/2018 1:00 PM EDT INFUSION THERAPY ADMINISTRATION NOTES DIAGNOSIS: NSCLC CYCLE #: Cycle 9, Day 1 REASON FOR VISIT: Durvalumab infusion SUBJECTIVE: Pierre offers no complaints. OBJECTIVE: Seen by provider. Ready to treat. LAB DATA: WNL for today's infusion. IV ACCESS: Mediport Pre administration: Chemotherapy orders independently verified for drug name, route, and dosage per patient's height, weight and BSA by Carrie Chery, MADISYN and Sonny Velázquez [facility]. REACTIONS (DESCRIPTION, TIME, INTERVENTION [...] APRN [facility] HEMATOLOGY/[place] [address] 01/19/2022 Infusion Hematology and Oncology Canc eled (F-ARIA CANCEL) 01/25/2022 Hospital Gastroenterology Jose Clark MD [facility] [place] [address] 01/25/2022 Surgery Gastroenterology Jose Clark UPPE R GI R, MD ENDOSCOPY [facility] [place] [address] 01/26/2022 Office Visit Hematology and Oncology Fabian Cameron MD [facility] HEMATOLOGY/[place] [address] Loan Burton APRN [facility] HEMATOLOGY/[place] [address] 01/26/2022 Infusion Hematology and Oncology 02/02/2022 Office Visit Hematology and Oncology Fabian Cameron MD [facility] HEMATOLOGY/[place] [address] 02/02/2022 Infusion Hematology and Oncology 02/22/2022 Telephone Hematology and Oncology Siena Lloyd RD [facility] DRIVE [place] [address] Scheduled Procedures Name Priority Associated Diagnoses Date/Time EGD, UPPER GI ENDOSCOPY EGD with stent vs 2021 12:00 PM EDT cryotherapy. documented as of this encounter Visit Diagnoses Diagnosis Primary lung adenocarcinoma, right documented in this encounter Administered Medications Inactive Administered Medications - up to 3 most recent administrations Medication Order MAR Action Action Date Dose Rate Site durvalumab (Imfinzi) 1,240 New Bag 01/03/2018 1:39 PM EDT 1,240 mg 274.8 mL/hr mg in sodium chloride 0.9% 274.8 mL infusion 1,240 mg, Intravenous, ONCE, 1 dose, On Stephanie 01/03/18 at 1430, Administer over 60 Minutes, No dose adjustments., Dose Ordered = 1329 mg (10 mg/kg). Pharmacist rounded dose per procedure. heparin, porcine 100 unit/mL flush 500 Given 01/03/2018 2:47 PM EDT 500 Units Units 500 Units, Intravenous, ONCE PRN, Starting on Stephanie 01/03/18 at 1304, Until Stephanie 01/03/18 at 1648, Line Care, Refer to Intravenous (IV) Procedure: Accessing Implanted Vascular Access Devices (204) procedure and/or Intravenous (IV) Job Aid: Adult Flushing & Catheter Care (0995) job aid for additional information regarding guidelines and administration., Routine sodium chloride 0.9 % flush 5-20 mL Given 01/03/2018 2:47 PM EDT 20 mLs 5-20 mL, Intravenous, EVERY 1 MIN PRN, Starting on Stephanie 01/03/18 at 1304, Until Stephanie 01/03/18 at 1648, Line Care, Flush pertains to all indwelling lines. Flush per protocol found in the job aid using the link provided on this medication record. Refer to Intravenous (IV) Job Aid: Adult Flushing & Catheter Care (6624) job aid for additional information regarding guidelines and administration., Routine documented in this encounter Care Teams Planning Technician Relationship Specialty Start Date End Date Farzaneh Winkler, SLIMER PCP - General General Internal Medicine 06/05/[address] [place] [address] documented as of this encounter
--- OUTSIDE RECORDS SUMMARY | 2022-01-19 07:39 | XMS_ITS | Encounter Summary ---
:1950 Author Organization [facility] [place] [address] Care Team Providers Name Role Phone Farzaneh Winkler Daria FRANCISCO Primary Care Provider Encounter Details Date Type Department Care Team Description 09/27/2017 Clinical Support Hematology/Oncology at [facility] MUKUND [address] [place] [address] Social History Tobacco Use Types [...] encounter Progress Notes Adrian Gold RD - 09/27/2017 2:00 PM EDT [facility] Dietitian Follow Up Assessment Seen By: Katt Gold, , RD, ROCK STAR, LD Referred by: BROOKE Miranda Reason for [...] Moderate Wt Readings from Last 3 Encounters: 09/27/17 127 kg (280 lb) 09/11/17 131.1 kg (289 lb) 08/21/17 132.9 kg (293 lb) Wt Hx: UBW: % UBW: IBW: +/- 10% % IBW: BMI: 42 ___ Edema ___ Ascites ___Muscle wasting Calorie needs: Protein needs: Fluid needs: Food Intake: one meal/d is baseline. Not eating as much. Snacking more through the day now, instead of one meal/d Am: Seldom eats. Apple fritter with 1% glass of milk Noon: Chips and dip Pm: Pork ribs, rice Snacks: used to eat chips and dips, but now laying off that. Fluids: mostly diet gingerale or coke with 48-60 oz water/d. 2, 32 ounce bottle of powerade. Supplements/Frequency: Denies ___ Ensure/Plus ___ Boost/Plus - thinking about getting him some ___ CIB - has in the past ___ Other: Teas, vitamins, or other nutritional supplements: one/d for men Food allergies or avoidances: doesn't like avocado Appetite: likes spicy stuff, but gets heartburn Nausea: +, compazine on hand. Vomiting: denies Chewing: deines Dentition: Swallowing: denies Taste Changes: Too good Bowels: deniees Food availability/purchasing, meal planning and preparation: He usually did, and does more now. Depression: Social Support: Economic Issues: Physical Activity: plays solitaire and poker Level of Motivation/Readiness to Change: Nutrition Diagnosis: [facility]. 08/03/17: Weight down minimally. Nausea improved with [...] Provided him with Ensure Plus sample kit. Nutrition Intervention: ? Increase caloric needs: discussed ? Modify diet consistency: ? Increase frequency of meals and snacks: q 2-3 hrs ? Need for supplements: once/d Nutrition Goals: weight stability and LBM preseravation Educational Handouts provided: -- Other Recommendations: ? Monitoring and Evaluation: Will follow up with Mr. Meek in 3 week (s) to re-evaluate. I have provided him with my card and contact information should he have any questions in the mean time. Thank you for this consult. documented in this encounter Plan of Treatment Upcoming Encounters Date Type Specialty Care Team Description 01/19/2022 Office Visit Hematology and Oncology Loan Burton APRN [facility] HEMATOLOGY/[place] [address] 01/19/2022 Infusion Hematology and Oncology Canc eled (F-ARIA CANCEL) 01/25/2022 Hospital Gastroenterology Jose Clark RMD [facility] DR [place] [address] 01/25/2022 Surgery Gastroenterology Jose Clark EGD, LOLA Yates MD ENDOSCOPY [facility] [place] [address] 01/26/2022 Office Visit Hematology and Oncology Fabian Cameron MD [facility] DR HEMATOLOGY/[place] [address] Loan Burton MOBILE QA TESTER [facility] HEMATOLOGY/[place] [address] 01/26/2022 Infusion Hematology and Oncology 02/02/2022 Office Visit Hematology and Oncology Fabian Cameron MD [facility] DR HEMATOLOGY/[place] [address] 02/02/2022 Infusion Hematology and Oncology 02/22/2022 Telephone Hematology and Oncology Siena Lloyd, MUKUND [facility] DRIVE [place] [address] Scheduled Procedures Name Priority Associated Diagnoses Date/Time EGD, UPPER GI ENDOSCOPY EGD with stent vs 2021 12:00 PM EDT cryotherapy. documented as of this encounter Procedures Procedure Name Priority Date/Time Associated Diagnosis Comme nts LAB SCAN 09/27/2017 12:00 AM Results for this EDT procedure are i n the results section . documented in this encounter Results SCAN DOC: LAB (09/27/2017 12:00 AM EDT) Narrative 09/27/2017 12:00 AM EDT This result has an attachment that is no t available. Ordered by an unspecified provider. Scanning Provider MEDIA MGR SCAN EXT ORDR/RSLT documented in this encounter Visit Diagnoses Diagnosis Dietary counseling Dietary surveillance and counseling documented in this encounter Care Teams Contact Center Specialist Relationship Specialty Start Date End Date Farzaneh Winkler, MOBILE QA TESTER PCP - General General Internal Medicine 06/05/[address] [place] [phone] documented as of this encounter
--- OUTSIDE RECORDS SUMMARY | 2022-01-19 07:39 | XMS_ITS | Encounter Summary ---
:1950 Author Organization [facility] [place] [address] Care Team Providers Name Role Phone Farzaneh Winkler APRN Primary Care Provider Reason for Visit Reason Comments Chemotherapy Cycle 1 Day 36 Docetaxel, Ca rboplatin Treatment/Therapy Plan Authorization (Routine) - Closed Specialty Diagnoses / Procedures Referred By Contact Refer red To Contact Diagnoses Primary lung adenocarcinoma, right Jonathan Bishop MD [facility] Hem Onc Office [address] [place] [address] 719 35 [place] [address] Phone: Fax: Referral ID Status Reason Start Date Expiration Date Visits Requ ested Visits Authorized [id number] Closed 07/10/2017 07/10/2018 1 1 Encounter Details Date Type Department Care Team Description 08/21/2017 [facility] [address] [place] [phone] Social History Tobacco Use Types [...] encounter Progress Notes Conchita Munroe RN - 08/21/2017 9:00 AM EST INFUSION THERAPY ADMINISTRATION NOTES DIAGNOSIS: Lung Cancer CYCLE #1: Day 36 REASON FOR VISIT: Docetaxel/Carboplatin SUBJECTIVE Alin Meek [...] per patient's height, weight and BSA by Conchita Munroe, RN & Pharmacist on site. REACTIONS (DESCRIPTION, TIME, INTERVENTION AND EFFECTIVENESS) none ASSESSMENT Alin Meek was awake, alert and tolerated treatment well. He goes to XRT afterwards. PLAN Return to clinic as scheduled. documented in this encounter Plan of Treatment Upcoming Encounters Date Type Specialty Care Team Description 01/19/2022 Office Visit Hematology and Oncology Loan Burton, NOLAN [facility] HEMATOLOGY/[place] [address] 01/19/2022 Infusion Hematology and Oncology Canc eled (F-ARIA CANCEL) 01/25/2022 Hospital Gastroenterology Jose Clark MD [facility] [place] [address] 01/25/2022 Surgery Gastroenterology Jose Clark UPPE R GI R, MD ENDOSCOPY [facility] [place] [address] 01/26/2022 Office Visit Hematology and Oncology Fabian Cameron MD [facility] HEMATOLOGY/[place] [address] Loan Burton APRN [facility] HEMATOLOGY/[place] [address] 01/26/2022 Infusion Hematology and Oncology 02/02/2022 Office Visit Hematology and Oncology Fabian Cameron MD [facility] HEMATOLOGY/[place] [address] 02/02/2022 Infusion Hematology and Oncology 02/22/2022 Telephone Hematology and Oncology Siena Lloyd RD [facility] DRIVE [place] [address] Scheduled Procedures Name Priority Associated Diagnoses Date/Time EGD, UPPER GI ENDOSCOPY EGD with stent vs 2021 12:00 PM EDT cryotherapy. documented as of this encounter Visit Diagnoses Diagnosis Primary lung adenocarcinoma, right documented in this encounter Administered Medications Inactive Administered Medications - up to 3 most recent administrations Medication Order MAR Action Action Date Dose Rate Site CARBOplatin (PARAPLATIN) 300 New Bag 08/21/2017 11:28 AM EST 300 m g 560 mL/hr mg in dextrose 5% 280 mL chemo infusion 300 mg (Target AUC = 2), Intravenous, WEEKLY, First dose on Sun08/21/17 at 1015, Until Discontinued, Administer over 30 Minutes, Hold Parameters: CARBOplatin, Call provider for serum creatinine less than (mg/dL): .2, Call provider for serum creatinine greater than (mg/dL): 2, External serum creatinine results used to calculate dose? Yes, Enter serum creatinine value (mg/dL): 1.16, Enter serum creatinine result date: 08/21/2017 dexamethasone (DECADRON) injection 10 mg Given 08/21/2017 9:15 AM EST 10 mg 10 mg, Intravenous, ONCE, 1 dose, On Sun08/21/17 at 0915, Administer 60 minutes prior to DOCEtaxel diphenhydrAMINE (BENADRYL) injection 25 mg Given 08/21/2017 9:17 AM EST 25 mg 25 mg, Intravenous, ONCE, 1 dose, On Sun08/21/17 at 0915, Administer 60 minutes prior to DOCEtaxel, Routine DOCEtaxel (TAXOTERE) 53 mg in New Bag 08/21/2017 10:22 AM EST 53 m g 103 mL/hr sodium chloride 0.9% Non-PVC 102.65 mL chemo infusion 53 mg (rounded from 53.4 mg = 20 mg/m2/dose ? 2.67 m2 Treatment Plan BSA from Recorded weight), Intravenous, ONCE, 1 dose, On Sun08/21/17 at 1015, Administer over 60 Minutes, Warning Vesicant/Irritant Medication famotidine (PEPCID) injection 20 mg Given 08/21/2017 9:19 AM EST 20 mg 20 mg, Intravenous, ONCE, 1 dose, On Sun08/21/17 at 0915, Administer 60 minutes prior to DOCEtaxel fosaprepitant (EMEND) 150 mg in New Bag 08/21/2017 9:23 AM EST 150 mg 510 mL/hr sodium chloride 0.9% 255 mL infusion 150 mg, Intravenous, at 510 mL/hr, ONCE, 1 dose, On Sun08/21/17 at 0915, Routine heparin, porcine 100 unit/mL flush 500 Given 08/21/2017 12:05 PM EST 500 Units Units 500 Units, Intravenous, ONCE PRN, Starting on Sun08/21/17 at 0856, Until Sun08/21/17 at 1310, Line Care, Refer to Intravenous (IV) Procedure: Accessing Implanted Vascular Access Devices (364) procedure and/or Intravenous (IV) Job Aid: Adult Flushing & Catheter Care (0007) job aid for additional information regarding guidelines and administration., Routine palonosetron (ALOXI) injection 0.25 mg Given 08/21/2017 9:20 AM EST 0.25 mg 0.25 mg, Intravenous, ONCE, 1 dose, On Sun08/21/17 at 0915, Administer over 30 seconds., Routine sodium chloride 0.9 % flush 5-20 mL Given 08/21/2017 12:05 PM EST 20 mLs 5-20 mL, Intravenous, EVERY 1 MIN PRN, Starting on Sun08/21/17 at 0856, Until Sun08/21/17 at 1310, Line Care, Flush pertains to all indwelling lines. Flush per protocol found in the job aid using the link provided on this medication record. Refer to Intravenous (IV) Job Aid: Adult Flushing & Catheter Care (9347) job aid for additional information regarding guidelines and administration., Routine sodium chloride 0.9% infusion New Bag 08/21/2017 9:12 AM EST 500 mLs 500 mL, Intravenous, ONCE, 1 dose, On Sun08/21/17 at 0915 documented in this encounter Care Teams Tip Length Checker Relationship Specialty Start Date End Date Farzaneh Winkler, NOLAN PCP - General General Internal Medicine 06/05/[address] [place] [address] documented as of this encounter
--- OUTSIDE RECORDS SUMMARY | 2022-01-19 07:39 | XMS_ITS | Encounter Summary ---
:1950 Author Organization [place] [address] Care Team Providers Name Role Phone Farzaneh Winkler APRN Primary Care Provider Reason for Visit Reason Comments Lung Cancer Encounter Details Date Type Department Care Team Description 02/28/2018 Office Visit Hematology/Oncology Jonathan Bishop, [facility] lung adenocarcinoma, right; at [facility] Hypothyroidism due to drugs [address] [facility] [place] [address] [phone] Social History Tobacco Use Types Packs/Day Years [...] Sign Reading Time Taken Comments Blood Pressure 120/54 02/28/2018 11:03 AM EDT Pulse 96 02/28/2018 11:03 AM EDT Temperature 36.8 ??C (98.2 ??F) 02/28/2018 11:03 AM EDT Respiratory Rate 22 02/28/2018 11:03 AM EDT Oxygen Saturation 98% 02/28/2018 11:03 AM EDT Inhaled Oxygen Concentration - - Weight 141.1 kg (311 lb) 02/28/2018 11:03 AM EDT Height 180 cm (5' 10.87) 02/28/2018 11:03 AM EDT sandeep stephenson Body Mass Index 43.54 02/28/2018 11:03 AM EDT documented in this encounter Progress Notes Jonathan Bishop MD - 02/28/2018 11:00 AM EDT Images from the original note were not included. Diagnosis: Stage IIIa adenocarcinoma right upper lobe EGFR and ALK negative but PDL-1 90% positive Subjective: Alin comes in today for his 13th infusion of durvalumab. He continues to tolerate [...] [employer] for 8 months ??? 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 [...] Neurological: Negative. Hematological: Negative for adenopathy. BP 120/54 (Patient Position: Sitting) Pulse 96 Temp 36.8 ??C (98.2 ??F) (Oral) Resp 22 Ht 180 cm (5' 10.87) Comment: copied Wt (!) 141.1 kg (311 lb) SpO2 98% BMI 43.54 kg/m2 Head: Normocephalic, without obvious abnormality, atraumatic [...] Genetics RESULTS CONSULTATION CASE Outside case labeled [id number] ([id number]), collection date 05/28/2017. [employer] Tracking #: [id number] Report to: [facility] Department of Pathology [address] [place] [address] ??[id number] , , Ext [id number] Submitted for molecular testing only. ??This case has not been reviewed in ??its ??entirety. SPECIMEN ANALYZED: ?? [id number] (outside [id number]) Analysis: ??Examination of DNA extracted from formalin-fixed paraffin-embedded tumor ??tissue for somatic mutation analysis. Results: ??The following gene variants were identified in the submitted tissue: CLINICALLY ACTIONABLE VARIANTS: BRAF: ??NEGATIVE EGFR: ??NEGATIVE KRAS: ??MUTATION c.35G> T p.G12V Exon 2 PIK3CA: ??NEGATIVE OTHER DETECTED VARIANTS: N/A Interpretation: ?? After review of the pathology report and slides, the specimen ([id number]) was selected for mutation analysis from [...] stained slide and 2 unstained slide(s) labeled [id number] ([id number]). Submitted for PD-L1 testing only. ??This case [...] (Imfinzi) IV 1,240 mg ONCBCN ONCOLOGY (AMB) 01/17/2018 01/31/2018 02/14/2018 Day, Cycle Day 1, Cycle 10 Day 1, Cycle 11 Day 1, Cycle 12 CARBOplatin (PARAPLATIN) IV DOCEtaxel (TAXOTERE) IV durvalumab (Imfinzi) IV 1,240 mg 1,240 mg 1,240 mg Review of his CT scan of the chest done at [facility] on 09/05/2017 show that the primary mass [...] scan done a few days ago at [facility] 8 shows that the mass is gone down further now down to 2.1cm. The lymph nodes are all less than 1 cm. He continues to have 2 stable masses on the right adrenal that may not be metastatic tumor and does have now post radiation a moderate asymptomatic right effusion. Laboratory today shows white count of 10.67 hemoglobin 12.8 hematocrit 40.4 platelet count 356 neutrophil count 8.10 CMP shows normal electrolytes a creatinine 1.31 calcium of 8.7 TSH of 1.36 with a T4of 9.0 liver tests are normal with an AST of 12 and ALT of 18 Assessment/plan: Alin is continuing to do exceedingly [...] he certainly tolerating things well. We will Him back in 2 weeks with lab for his next infusion documented in this encounter Plan of Treatment Upcoming Encounters Date Type Specialty Care Team Description 01/19/2022 Office Visit Hematology and Oncology Loan Burton, NOLAN [facility] HEMATOLOGY/[place] [address] 01/19/2022 Infusion Hematology and Oncology Canc eled (F-ARIA CANCEL) 01/25/2022 Hospital Gastroenterology Jose Clark MD [facility] [place] [address] 01/25/2022 Surgery Gastroenterology Jose Clark, LOLA Yates MD ENDOSCOPY [facility] [place] [address] 01/26/2022 Office Visit Hematology and Oncology Fabian Cameron MD [facility] DR HEMATOLOGY/[place] [address] Loan Burton APRN [facility] HEMATOLOGY/[place] [address] 01/26/2022 Infusion Hematology and Oncology 02/02/2022 Office Visit Hematology and Oncology Fabian Cameron MD [facility] HEMATOLOGY/[place] [address] 02/02/2022 Infusion Hematology and Oncology 02/22/2022 Telephone Hematology and Oncology Siena Lloyd, MUKUND [facility] DRIVE [place] [address] Scheduled Procedures Name Priority Associated Diagnoses Date/Time EGD, UPPER GI ENDOSCOPY EGD with stent vs 2021 12:00 PM EDT cryotherapy. 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
--- OUTSIDE RECORDS SUMMARY | 2022-01-19 07:40 | XMS_ITS | Encounter Summary ---
:1950 Author Organization [facility] [place] [address] Care Team Providers Name Role Phone Peterson Farzaneh Huff APRN Primary Care Provider Encounter Details Date Type Department Care Team Description 07/12/2017 Notes Only Hematology Oncology at AntolinCarol durant MSW [facility] OFFICE OF CARE [address] [place] [address] [phone] Social History Tobacco Use Types Packs/Day Years [...] encounter Progress Notes Carol Shook MSW - 07/12/2017 12:17 PM EST Follow up with pt during his first infusion. Inquired if pt able to manage transportation as was a potential concern when SALES ESTIMATOR met him last week. Pt reports his son dropped him off and his will pick up worker. Pt states between his , son and daughter in law his rides will be covered. Reminded pt of my availability and will continue to follow. documented in this encounter Plan of Treatment Upcoming Encounters Date Type Specialty Care Team Description 01/19/2022 Office Visit Hematology and Oncology Loan Burton, NOLAN [facility] HEMATOLOGY/[place] [address] 01/19/2022 Infusion Hematology and Oncology Canc eled (F-ARIA CANCEL) 01/25/2022 Hospital Gastroenterology Jose Clark MD [facility] [place] [address] 01/25/2022 Surgery Gastroenterology Jose Clark EGD, LOLA Yates MD ENDOSCOPY [facility] [place] [address] 01/26/2022 Office Visit Hematology and Oncology Fabian Cameron MD [facility] HEMATOLOGY/[place] [address] Loan Burton, NOLAN [facility] HEMATOLOGY/[place] [address] 01/26/2022 Infusion Hematology and Oncology 02/02/2022 Office Visit Hematology and Oncology Fabian Cameron MD [facility] HEMATOLOGY/[place] [address] 02/02/2022 Infusion Hematology and Oncology 02/22/2022 Telephone Hematology and Oncology Siena Lloyd RD [facility] [address]IVE [place] [address] Scheduled Procedures Name Priority Associated Diagnoses Date/Time EGD, UPPER GI ENDOSCOPY EGD with stent vs 2021 12:00 PM EDT cryotherapy. documented as of this encounter Visit Diagnoses Not on filedocumented in this encounter Care Teams Multineedle Shirrer Relationship Specialty Start Date End Date Farzaneh Winkler, BLANKET BINDER PCP - General General Internal Medicine 06/05/[address] [place] [phone] documented as of this encounter
--- OUTSIDE RECORDS SUMMARY | 2022-01-19 07:40 | XMS_ITS | Encounter Summary ---
:1950 Author Organization [facility] [address] Care Team Providers Name Role Phone Peterson Farzaneh Huff APRN Primary Care Provider Encounter Details Date Type Department Care Team Description 07/04/2017 Office Visit Radiation Oncology at [facility], Maryann Marsh denocarcinoma, lung, [facility] [address] [place] [address] [facility], [place] RADIATION ONCOL OGY [address] [place], [place] [phone] (Wo rk) Social History Tobacco Use Types [...] Sign Reading Time Taken Comments Blood Pressure 131/74 07/04/2017 12:00 PM EST Pulse 92 07/04/2017 12:00 PM EST Temperature 36.8 ??C (98.3 ??F) 07/04/2017 12:00 PM EST Respiratory Rate 20 07/04/2017 12:00 PM EST Oxygen Saturation 98% 07/04/2017 12:00 PM EST Inhaled Oxygen Concentration - - Weight - - Height - - Body Mass Index - - documented in this encounter Patient Instructions Patient InstructionsMadina Wall RN - 07/04/2017 12:30 PM EST General instructions for Radiation therapy Radiation Oncology Team ?? Radiation Oncologist -The doctor who will direct all aspects of your radiation treatments ?? Nurse Practitioner - They assist your doctor in treating your side effects and with follow up appointments. ?? Registered Nurse - They assist you in learning about you radiation treatments, , and things you can do to help manage the side effects. ?? Touch Up Carver - They take the doctors radiation prescription and customize it into doses (or days of treatments) specific for you. ?? Physicist - They make sure all the machines are operating correctly and double check calculationsfor your treatment. ?? Radiation Technologists - They operate the machines which deliver your radiation. You see them daily and they schedule your treatments. ?? Simulation CT/ Planning Session- Your first step after deciding to start radiation treatments is done on a special CT scanner in radiation oncology. The images obtained are used to plan your treatments. This may be scheduled the sameday you meet your doctor or in a separate visit. This usually takes between 30 minutes to one hour. You may need an IV for contrast. If so our nurse will let you know that day along with any other special instructions. During this visit we may clement Your skin with a tiny ???tattoos?? , take pictures ormake special molds or masks to help us place you in the exact treatment position every day. After this session it takes up to two weeks for your plan to be developed and checked by your doctor, the dosimetrists and the physicist. ?? Skin Care - Your nurse/physician will provide you with the necessary creams and supplies as you need them during your treatments. Please make sure to keep the treatment area clean and dry. Be sure to notice if your clothing rubs or digs into the treatment area and try to wear clothes which are less abrasive, like cotton or loosefitting. Do not use harsh soaps, ointments, deodorants or tapes in the treatment area unless directed by your nurse or doctor. Keep the treatment area out of the sun during treatments. There is a possibility that your esophagus ( The tube your food travels down to your stomach) will be in the radiation field. Therefore, you may experience some pain with swallowing once your treatments have started. If so, it is important that you inform your doctor or nurse You will find that you will better tolerate low roughage, soft foods that are low in acid. Avoid tomato and citrus products. ?? General precautions- DO NOT USE heating pads, hot water bottles, hot poultices, heat lamps, heat in any form, or ice packs to the area of your body being treated. It is common to start feeling fatigue after a few weeks of being treated. You can help minimize this by getting regular exercise or walking and getting plenty of rest. In general a well balanced diet is recommended. The senior cisco network engineer and nurse will inform you of any special diet requirements. Avoid shaving the treatment area with a razor. If you must shave use an electric razor. Our Contact numbers Section of Radiation Oncology Our normal business hours are: Sunday - Sunday: 8:00 AM to 5:00 PM [facility]: [facility]: If you have questions about your radiation appointments please ask to speak to one of our pocket secretary assembler staff. If you have questions for a nurse/doctor about radiation treatments, radiation side effects or you are not feeling well it is best to call early in the day. This allows a nurse to return your call by 5PM the same day. If you call after 4 PM, a nurse will return your call by 5 PM the following day unless it is emergent. If you experience any of the following you need to seek emergency care immediately by calling 911 1. Sudden and unexpected breathing difficulty without any exertion 2. Sudden onset of chest pain 3. Sudden onset of severe pain or uncontrolled pain 4. Sudden onset of severe weakness and/or unable to ambulate 5. Sudden new onset of a seizure 6. Fall resulting in injury ?? A Radiation Oncology doctor is percussion teacher after our normal hours and on weekends. ?? To call for urgent medical issues from radiation treatments that can not wait until normal business hours: ?? Call for either location and have the ruling machine operator page the Radiation Oncologist percussion teacher. documented in this encounter Progress Notes Madina Wall RN - 07/04/2017 12:30 PM EST Section of Radiation Oncology Contrast Information Safety Questions 1. Has the patient ever had an x-ray study before which involved injection of a contrast agent or x-ray dye? yes If yes, did the patient have any reaction to the injection? no If yes, please describe the reaction: na 2. Is the patient allergic to any foods, medicines, or other substances? yes Allergies Allergen Reactions ??? Lisinopril Angioedema Lips got swollen 3. Has the patient received any contrast within the past 48 hours? no 4. Does the patient have any procedures scheduled in the next 48 hours? no 5. Does the patient have a history of renal/kidney problems or kidney surgery? no 6. Does the patient have diabetes? no 7. Does the patient have high blood pressure? yes 8. Is the patient currently being treated for gout? no 9. If the answer to any of the questions #5-8 was yes, has the patient had a creatinine level drawn within the past 45 days? yes 06/29/17 1.2 See scanned [facility] of [facility] If no, when will it be drawn? na A creatinine less than or equal to 1.6 and a eGFR of 45 or greater is suitable for IV contrast. If the creatinine is greater than 1.6 and the eGFR is less than 45, consult with the ordering provider. If an eGFR is less than 30, IV contrast should not be administered and another contrast agent may beordered by the provider (Visipaque). 10. Is the patient currently taking any of the following medications? (Actoplus Met, Avandamet, Glucovance, Janumet, Jendadueto, Kombiglyze, Metaglip, PrandiMet, Glugophage, Glumetza, Riomet, Metformin) [x} No If yes, when was last dose taken? na 9. If patient is on any of the medications in question #10, consult with the ordering provider if the patient needs to stop the medication and if they will require further lab studies. Alden Ramos MD - 07/04/2017 12:30 PM EST Radiation Oncology Established Patient Followup [place] [address] Patient Identification: Alin Meek is a 66 y.o. year old male with Stage IIIA lung cancer. INTERVAL HISTORY I am seeing him prior to the simulation procedure to review his interval medical history, the treatment plan, logistics of therapy, and answer his questions. Since last seen, Mr. Meek reports no change in his overall medical condition and is here today forradiation planning CT simulation. We discussed the recommendation of the tumor board for chemoradiation, and reviewed informed consent. OBJECTIVE Constitutional: he appears well-developed and well-nourished. No distress. Medications 07/04/17 1236 Medication Sig Taking? losartan (COZAAR) 25 mg Tablet Take 25 mg by mouth daily. Yes chlorthalidone (HYGROTEN) 25 mg Tablet Take 25 mg by mouth daily. Yes amLODIPine (NORVASC) 10 mg Tablet Take 10 mg by mouth daily. Yes BUDESONIDE/FORMOTEROL FUMARATE (SYMBICORT INHL) Inhale into the lungs 2 times daily. Yes ALBUTEROL INHL Inhale into the lungs every 4 hours as needed. Yes triamcinolone (KENALOG) 0.1 % Cream Apply topically 2 times daily as needed. Yes Performance Status: KPS Score ECOG Grade Definition [...] selfcare; totally confined to bed or chair ASSESSMENT / PLAN Proceed with CT simulation per orders in [facility]. Informed consent obtained for radiotherapy to the lung, 30 fractions to be delivered in [facility]. Simulation scheduled for later today, anticipate RT to start next week. At least 15 of this 25 minute visit was spent with the patient [id number] reviewing his interval medical history and answering questions related to his lung cancer. documented in this encounter Miscellaneous Notes Addendum Note - Alden Ramos MD - 07/04/2017 1:11 PM EST Addended by: ALDEN RAMOS on: 07/04/2017 01:11 PM Modules accepted: Orders documented in this encounter Plan of Treatment Upcoming Encounters Date Type Specialty Care Team Description 01/19/2022 Office Visit Hematology and Oncology Loan Burton APRN [facility] HEMATOLOGY/[place] [address] 01/19/2022 Infusion Hematology and Oncology Canc eled (F-ARIA CANCEL) 01/25/2022 Hospital Gastroenterology Jose Clark MD [facility] [place] [address] 01/25/2022 Surgery Gastroenterology Jose Clark UPPE R GI R, MD ENDOSCOPY [facility] [place] [address] 01/26/2022 Office Visit Hematology and Oncology Fabian Cameron MD [facility] HEMATOLOGY/[place] [address] Loan Burton APRN [facility] HEMATOLOGY/[place] [address] 01/26/2022 Infusion Hematology and Oncology 02/02/2022 Office Visit Hematology and Oncology Fabian Cameron MD [facility] HEMATOLOGY/[place] [address] 02/02/2022 Infusion Hematology and Oncology 02/22/2022 Telephone Hematology and Oncology Siena Lloyd RD [facility] DRIVE [place] [address] Scheduled Procedures Name Priority Associated Diagnoses Date/Time EGD, UPPER GI ENDOSCOPY EGD with stent vs 2021 12:00 PM EDT cryotherapy. documented as of this encounter Procedures Procedure Name Priority Date/Time Associated Diagnosis Comme nts LAB SCAN 06/25/2017 12:00 AM Results for this EST procedure are i n the results section . documented in this encounter Results SCAN DOC: LAB (06/25/2017 12:00 AM EST) Narrative 06/25/2017 12:00 AM EST This result has an attachment that is no t available. Ordered by an unspecified provider. Scanning Provider MEDIA MGR SCAN EXT ORDR/RSLT documented in this encounter Visit Diagnoses Diagnosis Adenocarcinoma, lung, right documented in this encounter Care Teams Acute Care Nursing Assistant Relationship Specialty Start Date End Date Farzaneh Winkler, FURNACE MASON PCP - General General Internal Medicine 06/05/[address] [place] [id number] documented as of this encounter
--- OUTSIDE RECORDS SUMMARY | 2022-01-19 07:40 | XMS_ITS | Encounter Summary ---
:1950 Author Organization [facility] [place] [address] Care Team Providers Name Role Phone Farzaneh Winkler APRN Primary Care Provider Reason for Visit Reason Comments Chemotherapy Cycle 1, Day 22 Docetaxel/Ca rboplatin Treatment/Therapy Plan Authorization (Routine) - Closed Specialty Diagnoses / Procedures Referred By Contact Refer red To Contact Diagnoses Primary lung adenocarcinoma, right Jonathan Bishop MD [facility] Hem Onc Office [address] [place] [address] 338 80 [place] [address] Phone: Fax: Referral ID Status Reason Start Date Expiration Date Visits Requ ested Visits Authorized [id number] Closed 07/10/2017 07/10/2018 1 1 Encounter Details Date Type Department Care Team Description 08/02/2017 [facility] [address] [place] [address] [phone] Social History Tobacco Use Types [...] encounter Progress Notes Tena Leblanc RN - 08/02/2017 11:00 AM EST INFUSION THERAPY ADMINISTRATION NOTES DIAGNOSIS: Lung Cancer CYCLE #1: Day 22 REASON FOR VISIT: Docetaxel/Carboplatin SUBJECTIVE Alin Meek [...] weight and BSA by Tena Leblanc, MADISYN & Pharmacist on site REACTIONS (DESCRIPTION, TIME, INTERVENTION AND EFFECTIVENESS) none ASSESSMENT Alin Meek was awake, alert and tolerated treatment well. He goes to XRT afterwards. PLAN Return to clinic as scheduled. documented in this encounter Plan of Treatment Upcoming Encounters Date Type Specialty Care Team Description 01/19/2022 Office Visit Hematology and Oncology Loan Burton APRN [facility] HEMATOLOGY/[place] [address] 01/19/2022 Infusion Hematology and Oncology Canc eled (F-ARIA CANCEL) 01/25/2022 Hospital Gastroenterology Jose Clark MD [facility] GASTROENTEROLOG [place] [address] 01/25/2022 Surgery Gastroenterology Jose Clark UPPE R GI R, MD ENDOSCOPY [facility] GASTROENTER[place] [address] 01/26/2022 Office Visit Hematology and Oncology Fabian Cameron MD [facility] HEMATOLOGY/[place] [address] Loan Burton APRN [facility] DR HEMATOLOGY/[place] [address] 01/26/2022 Infusion Hematology and Oncology 02/02/2022 Office Visit Hematology and Oncology Fabian Cameron MD [facility] HEMATOLOGY/[place] [address] 02/02/2022 Infusion Hematology and Oncology 02/22/2022 Telephone Hematology and Oncology Siena Lloyd RD [facility] DRIVE HEMATOLOGY [place] [address] Scheduled Procedures Name Priority Associated Diagnoses Date/Time EGD, UPPER GI ENDOSCOPY EGD with stent vs 2021 12:00 PM EDT cryotherapy. documented as of this encounter Visit Diagnoses Diagnosis Primary lung adenocarcinoma, right documented in this encounter Administered Medications Inactive Administered Medications - up to 3 most recent administrations Medication Order MAR Action Action Date Dose Rate Site CARBOplatin (PARAPLATIN) 292 New Bag 08/02/2017 1:56 PM EST 292 mg 558 mL/hr mg in sodium chloride 0.9% 279.2 mL chemo infusion 292 mg (Target AUC = 2), Intravenous, WEEKLY, 1 dose, First dose on Stephanie 08/02/17 at 1215, Administer over 30 Minutes, Hold Parameters: CARBOplatin, Call provider for serum creatinine less than (mg/dL): .2, Call provider for serum creatinine greater than (mg/dL): 2, External serum creatinine results used to calculate dose? Yes, Enter serum creatinine value (mg/dL): 1.21, Enter serum creatinine result date: 06/29/2017 dexamethasone (DECADRON) injection 10 mg Given 08/02/2017 11:26 AM EST 10 mg 10 mg, Intravenous, ONCE, 1 dose, On Stephanie 08/02/17 at 1115, Administer 60 minutes prior to DOCEtaxel diphenhydrAMINE (BENADRYL) injection 25 mg Given 08/02/2017 11:29 AM EST 25 mg 25 mg, Intravenous, ONCE, 1 dose, On Stephanie 08/02/17 at 1115, Administer 60 minutes prior to DOCEtaxel, Routine DOCEtaxel (TAXOTERE) 53 mg in New Bag 08/02/2017 12:47 PM EST 53 m g 103 mL/hr sodium chloride 0.9% Non-PVC 102.65 mL chemo infusion 53 mg (rounded from 53.4 mg = 20 mg/m2/dose ? 2.67 m2 Treatment Plan BSA from Recorded weight), Intravenous, ONCE, 1 dose, On Stephanie 08/02/17 at 1215, Administer over 60 Minutes, Warning Vesicant/Irritant Medication famotidine (PEPCID) injection 20 mg Given 08/02/2017 11:25 AM EST 20 mg 20 mg, Intravenous, ONCE, 1 dose, On Stephanie 08/02/17 at 1115, Administer 60 minutes prior to DOCEtaxel fosaprepitant (EMEND) 150 mg in New Bag 08/02/2017 11:37 AM ES T 150 mg 310 mL/hr sodium chloride 0.9% 155 mL infusion 150 mg, Intravenous, at 310 mL/hr, ONCE, 1 dose, On Stephanie 08/02/17 at 1115, Routine heparin, porcine 100 unit/mL flush 500 Given 08/02/2017 2:30 PM EST 500 Units Units 500 Units, Intravenous, ONCE PRN, Starting on Stephanie 08/02/17 at 1049, Until Stephanie 08/02/17 at 1638, Line Care, Refer to Intravenous (IV) Procedure: Accessing Implanted Vascular Access Devices (054) procedure and/or Intravenous (IV) Job Aid: Adult Flushing & Catheter Care (1149) job aid for additional information regarding guidelines and administration., Routine palonosetron (ALOXI) injection 0.25 mg Given 08/02/2017 11:24 AM EST 0.25 mg 0.25 mg, Intravenous, ONCE, 1 dose, On Stephanie 08/02/17 at 1115, Administer over 30 seconds., Routine sodium chloride 0.9 % flush 5-20 mL Given 08/02/2017 2:30 PM EST 20 mLs 5-20 mL, Intravenous, EVERY 1 MIN PRN, Starting on Stephanie 08/02/17 at 1049, Until Stephanie 08/02/17 at 1638, Line Care, Flush pertains to all indwelling lines. Flush per protocol found in the job aid using the link provided on this medication record. Refer to Intravenous (IV) Job Aid: Adult Flushing & Catheter Care (0821) job aid for additional information regarding guidelines and administration., Routine sodium chloride 0.9% infusion New Bag 08/02/2017 12:07 PM EST 500 mLs 500 mL, Intravenous, ONCE, 1 dose, On Stephanie 08/02/17 at 1115 documented in this encounter Care Teams Hand Rug Braider Relationship Specialty Start Date End Date Farzaneh Winkler, NOLAN PCP - General General Internal Medicine 06/05/[address] [place] [address] documented as of this encounter
--- OUTSIDE RECORDS SUMMARY | 2022-01-19 07:40 | XMS_ITS | Encounter Summary ---
:1950 Author Organization [facility] [place] [address] Care Team Providers Name Role Phone Farzaneh Winkler APRN Primary Care Provider Reason for Visit Reason Comments IV Access SIM start Encounter Details Date Type Department Care Team Description 07/04/2017 Infusion Hematology Oncology at [facility] lung adenocarcinoma[address] [phone] Social History Tobacco Use [...] as of this encounter Progress Notes Cassi Martinez, MADISYN - 07/04/2017 1:30 PM EST Patient arrived in infusion at 1230. #20g PIV placed without difficulty in left arm. Positive blood return noted. Stat-Lock appliance applied. Report given to [facility] Oncology, Madina Wall RN. documented in this encounter Plan of Treatment Upcoming Encounters Date Type Specialty Care Team Description 01/19/2022 Office Visit Hematology and Oncology Loan Burton APRN [facility] HEMATOLOGY/[place] [address] 01/19/2022 Infusion Hematology and Oncology Canc eled (F-ARIA CANCEL) 01/25/2022 Hospital Gastroenterology Jose Clark MD [facility] GASTROENTEROLOG [place] [address] 01/25/2022 Surgery Gastroenterology Jose Clark UPPE R GI R, MD ENDOSCOPY [facility] GASTROENTEROLOG [place] [address] 01/26/2022 Office Visit Hematology and Oncology Fabian Cameron MD [facility] HEMATOLOGY/[place] [address] Loan Burton APRN [facility] HEMATOLOGY/[place] [address] 01/26/2022 Infusion Hematology and Oncology 02/02/2022 Office Visit Hematology and Oncology Fabian Cameron MD [facility] HEMATOLOGY/[place] [address] 02/02/2022 Infusion Hematology and Oncology 02/22/2022 Telephone Hematology and Oncology Siena Lloyd RD [facility] DRIVE HEMATOLOGY [place] [address] Scheduled Procedures Name Priority Associated Diagnoses Date/Time EGD, UPPER GI ENDOSCOPY EGD with stent vs 2021 12:00 PM EDT cryotherapy. documented as of this encounter Visit Diagnoses Diagnosis Primary lung adenocarcinoma, right documented in this encounter Care Teams Tax Record Clerk Relationship Specialty Start Date End Date Farzaneh Winkler APRN PCP - General General Internal Medicine 06/05/[address] [place], [place] [id number] documented as of this encounter
--- OUTSIDE RECORDS SUMMARY | 2022-01-19 07:40 | XMS_ITS | Encounter Summary ---
:1950 Author Organization [facility] [place] [address] Care Team Providers Name Role Phone Farzaneh Winkler APRN Primary Care Provider Encounter Details Date Type Department Care Team Description 07/25/2017 [facility] [address] [phone] Social History Tobacco Use [...] this encounter Miscellaneous Notes Telephone Encounter - Meredith Benton RN - 07/25/2017 1:46 PM EST Telephone call returned to me by Farzaneh Winkler APRN. I Informed her of patient's recent history of diarrhea, exposure to family members with similar symptoms and today's orthostatic vitals as described below. She would like patient to hold both lisinopril and amlodipine if Systolic BP is less than 110 or if he is dizzy. She would like to be sure that he has a home BP cuff so that he can monitor and would like to be called back ([phone]) if he does not as she will have one provided. I let her know that our plan is to assess his status again tomorrow and that I will call him with her instructions. Telephone Encounter - Meredith Benton RN - 07/25/2017 1:07 PM EST Background: Please see otv note from today. Note orthostatic vitals: Sitting (left) BP- 81/55, pulse-61. Standing BP- 84/46 pulse -56. Patient did complain of mild dizziness while standing which quickly resolved. Dr. Ramos asked that I contact PCP to inform of patient vitals today, let them know we will recheck tomorrow and inquire as to what antihypertensives they might want held. Telephone call to MD clinic. Spoke with Mirna who took reason for call and states that provider not currently available. She took my contact information and will have provider return call. documented in this encounter Plan of Treatment Upcoming Encounters Date Type Specialty Care Team Description 01/19/2022 Office Visit Hematology and Oncology Loan Burton, MEDICAL APPOINTMENT CLERK [facility] HEMATOLOGY/[place] [address] 01/19/2022 Infusion Hematology and Oncology Canc eled (F-ARIA CANCEL) 01/25/2022 Hospital Gastroenterology Jose Clark MD [facility] [place] [address] 01/25/2022 Surgery Gastroenterology Jose Clark UPPE R GI R, MD ENDOSCOPY [facility] [place] [address] 01/26/2022 Office Visit Hematology and Oncology Fabian Cameron MD [facility] HEMATOLOGY/[place] [address] Loan Burton APRN [facility] HEMATOLOGY/[place] [address] 01/26/2022 Infusion Hematology and Oncology 02/02/2022 Office Visit Hematology and Oncology Fabian Cameron MD [facility] HEMATOLOGY/[place] [address] 02/02/2022 Infusion Hematology and Oncology 02/22/2022 Telephone Hematology and Oncology Siena Lloyd RD [facility] DRIVE [place]OLOG[place] [address] Scheduled Procedures Name Priority Associated Diagnoses Date/Time EGD, UPPER GI ENDOSCOPY EGD with stent vs 2021 12:00 PM EDT cryotherapy. documented as of this encounter Visit Diagnoses Not on filedocumented in this encounter Care Teams Dianeticist Relationship Specialty Start Date End Date Farzaneh Winkler APRN PCP - General General Internal Medicine 06/05/[address] [place] [phone] documented as of this encounter
--- OUTSIDE RECORDS SUMMARY | 2022-01-19 07:40 | XMS_ITS | Encounter Summary ---
:1950 Author Organization [facility] [place] [address] Care Team Providers Name Role Phone Peterson Farzaneh Huff APRN Primary Care Provider Reason for Visit Reason Comments IV Access Port Flush Encounter Details Date Type Department Care Team Description 08/09/2017 Infusion Hematology Oncology at [facility] lung adenocarcinoma[address] [phone] Social History Tobacco Use [...] as of this encounter Progress Notes Janett Dukes RN - 08/09/2017 11:00 AM EST REASON FOR VISIT: MEDIPORT FLUSH ONLY IV [...] and Oncology Loan Burton APRN [facility] HEMATOLOGY/[place] [address] 01/19/2022 Infusion Hematology and Oncology Canc eled (F-ARIA CANCEL) 01/25/2022 Hospital Gastroenterology Jose Clark MD [facility] [place] [address] 01/25/2022 Surgery Gastroenterology Jose Clark UPPE R GI R, MD ENDOSCOPY [facility] [place] [address] 01/26/2022 Office Visit Hematology and Oncology Fabian Cameron MD [facility] HEMATOLOGY/[place] [address] Loan Burton APRN [facility] HEMATOLOGY/[place] [address] 01/26/2022 Infusion Hematology and Oncology 02/02/2022 Office Visit Hematology and Oncology Fabian Cameron MD [facility] HEMATOLOGY/[place] [address] 02/02/2022 Infusion Hematology and Oncology 02/22/2022 Telephone Hematology and Oncology Siena Lloyd RD [facility] DRIVE [place] [address] Scheduled Procedures Name Priority Associated Diagnoses Date/Time EGD, UPPER GI ENDOSCOPY EGD with stent vs 2021 12:00 PM EDT cryotherapy. documented as of this encounter Visit Diagnoses Diagnosis Primary lung adenocarcinoma, right documented in this encounter Care Teams Analytics Manager Relationship Specialty Start Date End Date Farzaneh Winkler, LAYDOWN MACHINE OPERATOR PCP - General General Internal Medicine 06/05/[address] [place] [address] documented as of this encounter
--- OUTSIDE RECORDS SUMMARY | 2022-01-19 07:40 | XMS_ITS | Encounter Summary ---
:1950 Author Organization [place] [place] [address] Care Team Providers Name Role Phone Farzaneh Winkler APRN Primary Care Provider Reason for Visit Reason Comments Lung Cancer Consultation (Routine) - Closed Specialty Diagnoses / Procedures Referred By Contact Refer red To Contact Hematology and Diagnoses Malignant neoplasm of unspecified part of right bronchus or lung Farzaneh Winkler, Jonathan Bishop MD Oncology Procedures Treatment Options [address] [phone] Fax: Referral ID Status Reason Start Date Expiration Date Visits Requ ested Visits Authorized [id number] Closed 06/21/2017 06/21/2018 1 1 Encounter Details Date Type Department Care Team Description 07/02/2017 Office Visit Hematology/Oncology Jonathan Bishop [facility] lung at [facility] adenocarcinoma, right [address] [place] [phone] (Wo rk) Social History Tobacco Use Types [...] Sign Reading Time Taken Comments Blood Pressure 140/71 07/02/2017 2:03 PM EST Pulse 112 07/02/2017 2:03 PM EST Temperature 36.7 ??C (98.1 ??F) 07/02/2017 2:03 PM EST Respiratory Rate 20 07/02/2017 2:03 PM EST Oxygen Saturation 98% 07/02/2017 2:03 PM EST Inhaled Oxygen Concentration - - Weight 142.4 kg (314 lb) 07/02/2017 2:03 PM EST Height 180 cm (5' 10.87) 07/02/2017 2:03 PM EST copied Body Mass Index 43.96 07/02/2017 2:03 PM EST documented in this encounter Progress Notes Cassi Martinez RN - 07/02/2017 3:00 PM EST MEDICAL ONCOLOGY INITIAL NURSING ASSESSMENT ADVANCE DIRECTIVES: In EDH [ ] Has documents [ ] Will bring in [ ] . Not discussed today. IF NO: Advance Directive pamphlet provided : Referral to Care Management : PRESENTING SYSTEMS and PATHOLOGY: as per Dr. Bishop REVIEW OF SYSTEMS: as per Dr. Bishop Prior Radiotherapy: no[ x ] Yes[ ]Site Date Facility Prior Chemotherapy: no[x ] Yes[ ] Drug: Oncologist- LastTreatment: NO: YES: Claustrophobia or requires sedation for MRIs x Allergy to CT or MRI contrast agent or iodine or shellfish x Diabetic and on metformin x Metal in body, implanted device, worked with metal, body piercings,braces x Dentures or hearing device x Pacemaker x Difficulty breathing while lying flat x Kidney problems/creatinine x Balance difficulty: [ ]no [ x ]yes At risk for fall: [ ] no [ x ] yes If yes, actions implemented to prevent fall. Patient/family instructed to avoid independent ambulation. Use wheelchair and ask for assistance of staff while in the clinic. ADL [ ] no limits [ ] needs dressing assistance [ ] needs meal assistance Assistive device:[ ]none [x ]cane [ ]walker [ ]wheelchair [ ]other: explain PAIN ASSESSMENT: [ 0 ] out of 10 Location: Description: [ ] Dull [ ] Sharp [ ] Burning [ ] Throbbing [ ] Radiating [ ] Continuous [ ]Intermittent Aggravating Factors: [ ] Movement [ ] Position [ ]Immobility [ ]Other Alleviating Factors: [ ]Medication [ ] Positioning [ ] Other Current Pain Management Plan: [ x ]Satisfied [ ] Not satisfied SOCIAL ASSESSMENT: See ED social assessment information entered. Support Systems: transportation plan: [x ]private vehicle [ ] RCT needs Social Work referral [ ] Unknown at this time needs Social Work referral Barriers to treatment: Referrals/Interventions: LEARNING STYLE: Visual and verbal, wants written material and verbal discussion. TEACHING: __ NCI ???Chemotherapy and You?? and folder given. NA __ Specific chemotherapy literature provided and reviewed with patient. Discussion on possible chemotherapy. Awaiting recommendation from thoracic surgeons Jonathan Bishop MD - 07/02/2017 3:00 PM EST Images from the original note were not included. 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 Subsequent staging indicates he has a poorly differentiated 3a adenocarcinoma of the lung that is PD-L1 90% positive. He has been seen by radiation therapy and is here for a medical oncology consultation in regards to his tumor and the possibility of either neoadjuvant therapy and surgery versus combined chemoradiation therapy. The patient's PET scanning shows a right lower paratracheal node that measures 1.6 x 1.4 cm, along with an 8 x 5.5 cm right upper lobe mass. The patient had a bronchoscopy and biopsy of his R4 lymph node confirmed the adenocarcinoma. He has also had a CT scan of the brain as he is quite claustrophobic, that did not show any evidence of REWIND OPERATOR metastasis. This was done on May 25. Recent review of laboratory from the [place] shows he runs a slightly high white count of 14.5, hemoglobin of 13.3, and platelet count of 396. CMP showed a normal creatinine and liver test. He is here today with his to discuss the situation, having met with Radiation Oncology. Their recommendations were to consider having a surgery consultation and if the possibility of surgery is entertained, consider neoadjuvant treatment with either chemotherapy or possibly a clinical trial that is going on at [facility] with a PD-L1 inhibitor as initial neoadjuvant treatment. The patient still continues to cough. He does not have any significant weight loss. He has noticed an occasional meng of blood in the sputum since his bronchoscopy and biopsy. He is not having any significant overt bleeding. He does tell me he is reluctant to do much traveling and would like to do as much treatment and follow-up here locally as possible. I spent a significant time today explaining the difference between neoadjuvant treatment and surgery with possible radiation as follow up to that, versus concurrent chemoradiation therapy as a treatment option. I also spent some time talking about the differences between immunotherapy and chemotherapy. I believe he and his left here with a good explanation of things, the plan, and he would like to see the surgeon and be evaluated for the clinical trial. Past Medical History: Diagnosis Date ??? Adenocarcinoma, lung, right ??? COPD (chronic obstructive pulmonary disease) ??? DJD (degenerative joint disease) ??? HTN (hypertension), benign Past Surgical History: Procedure Laterality Date ??? LUMBAR DISC SURGERY ??? SUBTOTAL COLECTOMY 05/23/2016 ??? TOTAL KNEE ARTHROPLASTY Right ??? UMBILICAL HERNIA REPAIR Allergies Allergen Reactions ??? Lisinopril Angioedema Lips got swlloen Medications 07/02/17 1417 Medication Sig Taking? losartan [...] [employer] for 8 months ??? 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 Smoking [...] Neurological: Negative. Hematological: Negative for adenopathy. BP 140/71 (Patient Position: Sitting) Pulse (!) 112 Temp 36.7 ??C (98.1 ??F) (Oral) Resp 20 Ht 180 cm (5' 10.87) Comment: copied Wt (!) 142.4 kg (314 lb) SpO2 98% BMI 43.96 kg/m2 Head: Normocephalic, without obvious abnormality, atraumatic [...] Genetics RESULTS CONSULTATION CASE Outside case labeled [id number] ([id number]), collection date 05/28/2017. [facility] [place] Tracking #: [id number] Report to: [facility] Department of Pathology [address] [place] [address] ??[id number] , , Ext [phone] Submitted for molecular testing only. ??This case has not been reviewed in ??its ??entirety. SPECIMEN ANALYZED: ?? [id number] ([id number]) Analysis: ??Examination of DNA extracted from formalin-fixed paraffin-embedded tumor ??tissue for somatic mutation analysis. Results: ??The following gene variants were identified in the submitted tissue: CLINICALLY ACTIONABLE VARIANTS: BRAF: ??NEGATIVE EGFR: ??NEGATIVE KRAS: ??MUTATION c.35G> T p.G12V Exon 2 PIK3CA: ??NEGATIVE OTHER DETECTED VARIANTS: N/A Interpretation: ?? After review of the pathology report and slides, the specimen ([id number]) was selected for mutation analysis from [...] stained slide and 2 unstained slide(s) labeled [id number] ([id number]). Submitted for PD-L1 testing only. ??This case has not been reviewed in its ? entirety. Tumor Proportion Score (TPS): ? % Expression: 90% Interpretation Table: PD-L1 assay (22C3 pharmDX) for Keytruda (pembrolizumab) Tumor Proportion Score (TPS): ? <1% ?PD-L1 Negative ? >1% ? PD-L1 Expression ?? > 50% ? PD-L1 High Expression ASSESSMENT/PLAN: Alin has a stage 3a adenocarcinoma that is PD-L1 positive at 90%. If he is a surgical candidate, then it certainly would make sense to consider neoadjuvant treatment on trial with a checkpoint inhibitor, although another approach would be to consider neoadjuvant treatment with a more standard chemotherapy regimen such as carboplatin and Alimta or carboplatin and then Taxol. He is a somewhat reluctant patient, so I would favor not using Cisplatin although there is some data that suggests it might be superior. I think he would be at risk if he has significant side effects for quitting treatment. All that being said, he is going to be seen by the surgeon at [facility] [place] and I have discussed the case with one of my partners at [facility] who will talk to him about whether or not he would be eligible for the clinical trial. He has been put on the Tumor Board for discussion tomorrow and we will see him back as necessary. He would, if possible, like to do some of his follow-up here locally, even if he goes on the clinical trial and I told him that would be a good question to discuss with the oncologist at the main [facility]. They are very interested in trying to keep their travels down to a minimum. One other sticking point could be his severe claustrophobia which has prevented him from getting a MRI of the brain. He is not completely unwilling to do this but would require anesthesia to undergo the procedure and that is certainly possibly, although the CT scan hopefully will be adequate as far as that goes. We will see him back depending on how this evolves. documented in this encounter Plan of Treatment Upcoming Encounters Date Type Specialty Care Team Description 01/19/2022 Office Visit Hematology and Oncology Loan Burton, NOLAN [facility] HEMATOLOGY/[place] [address] 01/19/2022 Infusion Hematology and Oncology Canc eled (F-ARIA CANCEL) 01/25/2022 Hospital Gastroenterology Jose Clark MD [facility] [place] [address] 01/25/2022 Surgery Gastroenterology Jose Clark UPPE R GI R, MD ENDOSCOPY [facility] [place] [address] 01/26/2022 Office Visit Hematology and Oncology Fabian Cameron MD [facility] HEMATOLOGY/[place] [address] Loan Burton, NOLAN [facility] HEMATOLOGY/[place] [address] 01/26/2022 Infusion Hematology and Oncology 02/02/2022 Office Visit Hematology and Oncology Fabian Cameron MD [facility] HEMATOLOGY/[place] [address] 02/02/2022 Infusion Hematology and Oncology 02/22/2022 Telephone Hematology and Oncology Siena Lloyd RD [facility] DRIVE [place] [address] Scheduled Procedures Name Priority Associated Diagnoses Date/Time EGD, UPPER GI ENDOSCOPY EGD with stent vs 2021 12:00 PM EDT cryotherapy. documented as of this encounter Visit Diagnoses Diagnosis Primary lung adenocarcinoma, right documented in this encounter Care Teams Vacuum Applicator Operator Relationship Specialty Start Date End Date Farzaneh Winkler, CENTRALIZED TRAFFIC CONTROL OPERATOR PCP - General General Internal Medicine 06/05/[address] [place] [address] documented as of this encounter
--- OUTSIDE RECORDS SUMMARY | 2022-01-19 07:40 | XMS_ITS | Encounter Summary ---
:1950 Author Organization [facility] [place] [address] Care Team Providers Name Role Phone Farzaneh Winkler Daria FRANCISCO Primary Care Provider Encounter Details Date Type Department Care Team Description 07/12/2017 Office Visit Radiation Oncology at [facility] A denocarcinoma, lung, [facility] [address] [place] RADIATION ONCOL OGY [address] [place], [place] [phone] (Wo rk) Social History Tobacco Use Types [...] encounter Progress Notes Alden Ramos MD - 07/12/2017 2:45 PM EST Images from the original note were not included. RADIATION ONCOLOGY - Weekly On Treatment Visit Note 07/12/17 Alden Ramos MD, MS Radiation Oncology [facility] [phone] (paging scrap crane operator) PATIENT IDENTIFICATION NAME: Alin Meek DATE OF : 1950 DIAGNOSIS: Primary lung adenocarcinoma, right Staging form: Lung, AJCC 8th Edition - Clinical: cT2, cN2, cM0 - Signed by Alden Ramos MD on 07/02/2017 CONCURRENT THERAPY: Carbo/ Taxol (from Dr. Bishop) INTENT OF THERAPY: Definitive (Curative) RADIATION TREATMENT DETAILS: Treatment Site RUL / mediastinum Prescribed Dose 60 Gy in 30 fractions Current Dose: 4 Gy in 2 fractions Custodial Worker Newsome from Current Plan (minimum 60 Gy isodose volume shown): INTERVAL HISTORY Subjective: General - No changes since last seen. Started this week. Resp - Isolated episode of hemoptysis on Sunday. Otherwise no new cough / SOB. Ongoing CHENG. Pain: Pain score today is 0/10. Nutrition: Weight today at start of therapy is 307 lbs. Eating normal diet. Medications 07/12/17 8189 Medication Sig Taking? SERTRALINE HCL (ZOLOFT ORAL) Take by mouth daily. Yes losartan (COZAAR) 25 mg Tablet Take 25 [...] topically 2 times daily as needed. Yes omeprazole (PRILOSEC) 40 mg Capsule, Delayed Release(E.C.) Take daily, 1/2 hour prior to breakfast on an empty stomach. Patient not taking: Reported on 07/12/2017 diphenhydrAMINE/aluminum-magnesium hydroxide with simethicone/lidocaine (BMX) oral suspension Swallow 10 mls every 3h as needed for esophageal pain. Patient not taking: Reported on 07/12/2017 sucralfate (CARAFATE) 1 gram Tablet Dissolve in 5ml of water and swallow for esophageal pain. You can take this every 3hours as needed. Patient not taking: Reported on 07/12/2017 Interval Imaging / Laboratory Studies: I have personally reviewed this patient's interval portal imaging to confirm accurate positioning and alignment which matches the patient's original approved treatment planning images. EXAM: Vitals 07/12/2017 SYSTOLIC 106 DIASTOLIC 61 BP Location PULSE 91 TEMPERATURE 97.9 RESPIRATIONS 18 Height (Polish) 5' 10.866 Height (Metric) 180 cm Weight (Polish) 307 lbs Weight (Metric) 139.254 kg BODY MASS INDEX 42.98 kg/m2 Constitutional: he appears well-developed and well-nourished. [...] chair IMPRESSION/PLAN Impression: Tolerating radiotherapy as anticipated. Plan: Continue treatment as planned. documented in this encounter Plan of Treatment Upcoming Encounters Date Type Specialty Care Team Description 01/19/2022 Office Visit Hematology and Oncology Loan Burton, NOLAN [facility] HEMATOLOGY/[place] [address] 01/19/2022 Infusion Hematology and Oncology Canc eled (F-ARIA CANCEL) 01/25/2022 Hospital Gastroenterology Jose Clark MD [facility] GASTROENTEROLOG [place] [address] 01/25/2022 Surgery Gastroenterology Jose Clark UPPE R GI R, MD ENDOSCOPY [facility] GASTROENTEROLOG [place] [address] 01/26/2022 Office Visit Hematology and Oncology Fabian Cameron MD [facility] HEMATOLOGY/[place] [address] Loan Burton, CARE SERVICES MANAGER [facility] HEMATOLOGY/[place] [address] 01/26/2022 Infusion Hematology and Oncology 02/02/2022 Office Visit Hematology and Oncology Fabian Cameron MD [facility] DR HEMATOLOGY/[place] [address] 02/02/2022 Infusion Hematology and Oncology 02/22/2022 Telephone Hematology and Oncology Siena Lloyd, MUKUND [facility] DRIVE HEMATOLOGY [place] [address] Scheduled Procedures Name Priority Associated Diagnoses Date/Time EGD, UPPER GI ENDOSCOPY EGD with stent vs 2021 12:00 PM EDT cryotherapy. documented as of this encounter Visit Diagnoses Diagnosis Adenocarcinoma, lung, right documented in this encounter Care Teams Service Desk Agent Relationship Specialty Start Date End Date Farzaneh Winkler, CARE SERVICES MANAGER PCP - General General Internal Medicine 06/05/[address] [place] [address] documented as of this encounter
--- OUTSIDE RECORDS SUMMARY | 2022-01-19 07:40 | XMS_ITS | Encounter Summary ---
:1950 Author Organization [facility] [place] [address] Care Team Providers Name Role Phone Farzaneh Winkler APRN Primary Care Provider Encounter Details Date Type Department Care Team Description 07/12/2017 Orders Only Hematology and Oncology at Julee Langle[place]N [facility] [address] [facility] [place] [address] [place] [address] [phone] (Wo rk) Social History Tobacco Use Types [...] 01/19/2022 Office Visit Hematology and Oncology Loan uBrton, CASHIER PARKING LOT [facility] HEMATOLOGY/[place] [address] 01/19/2022 Infusion Hematology and Oncology Canc eled (F-ARIA CANCEL) 01/25/2022 Hospital Gastroenterology Jose Clark MD [facility] [place] [address] 01/25/2022 Surgery Gastroenterology Jose Clark EGD, LOLA Yates MD ENDOSCOPY [facility] [place] [address] 01/26/2022 Office Visit Hematology and Oncology Fabian Cameron MD [facility] DR HEMATOLOGY/[place] [address] Loan Burton APRN [facility] HEMATOLOGY/[place] [address] 01/26/2022 Infusion Hematology and Oncology 02/02/2022 Office Visit Hematology and Oncology Fabian Cameron MD [facility] HEMATOLOGY/[place] [address] 02/02/2022 Infusion Hematology and Oncology 02/22/2022 Telephone Hematology and Oncology Siena Lloyd, MUKUND [facility] DRIVE [place] [address] Scheduled Procedures Name Priority Associated Diagnoses Date/Time EGD, UPPER GI ENDOSCOPY EGD with stent vs 2021 12:00 PM EDT cryotherapy. documented as of this encounter Visit Diagnoses Not on filedocumented in this encounter Care Teams Hand Flesher Relationship Specialty Start Date End Date Farzaneh Winkler, CASHIER [employer] PCP - General General Internal Medicine 06/05/[address] [place] [address] documented as of this encounter
--- OUTSIDE RECORDS SUMMARY | 2022-01-19 07:40 | XMS_ITS | Encounter Summary ---
:1950 Author Organization [facility] [place] [address] Care Team Providers Name Role Phone Farzaneh Winkler APRN Primary Care Provider Encounter Details Date Type Department Care Team Description 07/25/2017 Telephone Radiation Oncology at GemaMeredith salinas RN [address] [phone] Social History Tobacco Use [...] Encounter - Meredith Benton RN - 07/25/2017 1:59 PM EST Telephone call to patient to advise regarding new instructions from PCP. Please see my previous telephone encounter. Left voicemail mail for patient that he should not take either amlodipine or lisinopril if systolic BP is less than 110 or if he is dizzy. Informed that PCP wonders if he has a home BP cuff so that he can monitor his own BP at home. Also reminded that we will want to see him again tomorrow when he is here to assess his status at that time. Lastly, left my call back information with request for call back should he have any questions. documented in this encounter Plan of Treatment Upcoming Encounters Date Type Specialty Care Team Description 01/19/2022 Office Visit Hematology and Oncology Loan Burton APRN [facility] HEMATOLOGY/[place] [address] 01/19/2022 Infusion Hematology and Oncology Canc eled (F-ARIA CANCEL) 01/25/2022 Hospital Gastroenterology Jose Clark MD [facility] [place] [address] 01/25/2022 Surgery Gastroenterology Jose Clark UPPE R GI R, MD ENDOSCOPY [facility] [place] [address] 01/26/2022 Office Visit Hematology and Oncology Fabian Cameron MD [facility] HEMATOLOGY/[place] [address] Loan Burton APRN [facility] HEMATOLOGY/[place] [address] 01/26/2022 Infusion Hematology and Oncology 02/02/2022 Office Visit Hematology and Oncology Fabian Cameron MD [facility] HEMATOLOGY/[place] [address] 02/02/2022 Infusion Hematology and Oncology 02/22/2022 Telephone Hematology and Oncology Siena Lloyd RD [facility] DRIVE [place] [address] Scheduled Procedures Name Priority Associated Diagnoses Date/Time EGD, UPPER GI ENDOSCOPY EGD with stent vs 2021 12:00 PM EDT cryotherapy. documented as of this encounter Visit Diagnoses Not on filedocumented in this encounter Care Teams Detective Youth Bureau Relationship Specialty Start Date End Date Farzaneh Winkler, NOLAN PCP - General General Internal Medicine 06/05/[address] [place] [address] documented as of this encounter
--- OUTSIDE RECORDS SUMMARY | 2022-01-19 07:40 | XMS_ITS | Encounter Summary ---
:1950 Author Organization [facility] [place] [address] Care Team Providers Name Role Phone PetersonFarzaneh Daria FRANCISCO Primary Care Provider Reason for Visit Reason Onset Date Comments Diarrhea 07/23/2017 Encounter Details Date Type Department Care Team Description 07/23/2017 Telephone Radiation Oncology at GemaMeredith salinas RN [address] [phone] Social History Tobacco Use [...] Telephone Encounter - Meredith Benton RN - 07/23/2017 9:21 AM EST Background: Dr. Ramos advised that patient can take imodium. Telephone call to patient. Instructed per Dr. Ramos to try otc imodium. Encouraged him to continueto drink water, non caffeine fluids. He verbalized good understanding of instructions. Telephone Encounter - Meredith Benton RN - 07/23/2017 8:16 AM EST Background: Alerted by radiation cancellation trillian that patient called and won't be in for xrt as he has been having diarrhea. He would like a call back. Telephone call returned to patient. He reports that started to have diarrhea on Sunday which was worse yesterday and today. It is clear, watery without any blood. Too many movements to count. Doesnot have any cramping or fever. Denies nausea Sunday or Sunday but reports that he now does have some nausea. No vomiting. He had been eating but everything just goes through so he has backed off on foods. Is drinking water. He did check his temperature tympanic during phone call-97.4. He does Notfeel that he can drive to the clinic due to watery stools and wonders if there is something that he can take. He has not tried anything yet because his wouldn't let him do to possible interactions with his treatments. He has not spoken with any health urgent care technician prior to this phone call. His grandson is currently sick with similar symptoms and his recently was as well. I let him knowthat I will update his oncologists and return call to him. He states that anything that would be called in for [facility] [place] [facility] could [facility] prescriptions to [facility] in [place]. Dr. Ramos and Dario updated with this note. documented in this encounter Plan of Treatment Upcoming Encounters Date Type Specialty Care Team Description 01/19/2022 Office Visit Hematology and Oncology Loan Burton, ELECTRONIC PUBLICATIONS SPECIALIST [facility] HEMATOLOGY/[place] [address] 01/19/2022 Infusion Hematology and Oncology Can eled (F-ARIA CANCEL) 01/25/2022 Hospital Gastroenterology Jose Clark MD [facility] DR GASTROENTEROLOG [place] [address] 01/25/2022 Surgery Gastroenterology Jose Clark, LOLA Yates MD ENDOSCOPY [facility] DR GASTROENTEROLOG [place] [address] 01/26/2022 Office Visit Hematology and Oncology Fabian Cameron MD [facility] DR HEMATOLOGY/[place] [address] Loan Burton ELECTRONIC PUBLICATIONS SPECIALIST [facility] HEMATOLOGY/[place] [address] 01/26/2022 Infusion Hematology and Oncology 02/02/2022 Office Visit Hematology and Oncology Fabian Cameron MD [facility] DR HEMATOLOGY/[place] [address] 02/02/2022 Infusion Hematology and Oncology 02/22/2022 Telephone Hematology and Oncology Siena Lloyd, MUKUND [facility] DRIVE HEMATOLOGY [place] [address] Scheduled Procedures Name Priority Associated Diagnoses Date/Time EGD, UPPER GI ENDOSCOPY EGD with stent vs 2021 12:00 PM EDT cryotherapy. documented as of this encounter Visit Diagnoses Not on filedocumented in this encounter Care Teams Pulp Mill Operator Relationship Specialty Start Date End Date Farzaneh Winkler, ELECTRONIC PUBLICATIONS SPECIALIST PCP - General General Internal Medicine 06/05/[address] [place] [address] documented as of this encounter
--- OUTSIDE RECORDS SUMMARY | 2022-01-19 07:40 | XMS_ITS | Encounter Summary ---
:1950 Author Organization [facility] [place] [address] Care Team Providers Name Role Phone Farzaneh Winkler APRN Primary Care Provider Encounter Details Date Type Department Care Team Description 07/26/2017 Telephone Radiation Oncology at GemaMeredith salinas RN [address] [phone] Social History Tobacco Use [...] Telephone Encounter - Meredith Benton RN - 07/26/2017 2:30 PM EST Background: Please see my encounter, telephone call notes from yesterday. I met briefly with patient while he is here today in clinic. He reports that he did receive my message yesterday and has held his antihypertensives and his BP improved today. He reports that he does not have a BP cuff at home to use. I let him know that I will call PCP to let her know this. [facility] Left voicemail stating that patient does not have a home BP cuff available for him to monitor his BP along with my contact information. documented in this encounter Plan of Treatment Upcoming Encounters Date Type Specialty Care Team Description 01/19/2022 Office Visit Hematology and Oncology Loan Burton, NOLAN [facility] HEMATOLOGY/[place] [address] 01/19/2022 Infusion Hematology and Oncology Canc eled (F-ARIA CANCEL) 01/25/2022 Hospital Gastroenterology Jose Clark MD [facility] GASTROENTEROLOG [place] [address] 01/25/2022 Surgery Gastroenterology Jose Clark, LOLA Yates MD ENDOSCOPY [facility] GASTROENTEROLOG [place] [address] 01/26/2022 Office Visit Hematology and Oncology Fabian Cameron MD [facility] HEMATOLOGY/[place] [address] Loan Burton, NOLAN [facility] HEMATOLOGY/[place] [address] 01/26/2022 Infusion Hematology and Oncology 02/02/2022 Office Visit Hematology and Oncology Fabian Cameron MD [facility] HEMATOLOGY/[place] [address] 02/02/2022 Infusion Hematology and Oncology 02/22/2022 Telephone Hematology and Oncology Siena Lloyd RD [facility] DRIVE HEMATOLOGY [place] [address] Scheduled Procedures Name Priority Associated Diagnoses Date/Time EGD, UPPER GI ENDOSCOPY EGD with stent vs 2021 12:00 PM EDT cryotherapy. documented as of this encounter Visit Diagnoses Not on filedocumented in this encounter Care Teams Cue Selector Relationship Specialty Start Date End Date Farzaneh Winkler, NOLAN PCP - General General Internal Medicine 06/05/[address] [place] [address] documented as of this encounter
--- OUTSIDE RECORDS SUMMARY | 2022-01-19 07:40 | XMS_ITS | Encounter Summary ---
:1950 Author Organization [facility] [place] [address] Care Team Providers Name Role Phone Farzaneh Winkler Daria FRANCISCO Primary Care Provider Encounter Details Date Type Department Care Team Description 08/16/2017 Clinical Support Hematology/Oncology at [facility] [place] [address] [place] [phone] Social History Tobacco Use Types [...] as of this encounter Progress Notes Adrian Gold, MUKUND - 08/16/2017 1:00 PM EST [facility] Dietitian Follow Up Assessment Seen By: Katt Gold, , RD, INTERNATIONAL BANK MANAGER, LD Referred by: BROOKE Miranda Reason for visit: new lung start, diarrhea Patient and diagnosis: Alin comes in today for week 3 carboplatin and docetaxel and the concurrent treatment with radiation therapy of his lung cancer. Assessment: HPI: Patient Active Problem List Diagnosis Code ??? Mass of right lung R91.8 ??? Primary lung adenocarcinoma, right C34.91 Meds: reviewed Labs: reviewed, NA 132 Ht: Oncology Vitals 07/26/2017 Height 180 cm Wt: Wt Readings from Last 3 Encounters: 08/16/17 132.9 kg (293 lb) 08/09/17 135.2 kg (298 lb) 08/02/17 134.7 kg (297 lb) Wt Hx: UBW: % UBW: IBW: +/- 10% % IBW: BMI: 42 ___ Edema ___ Ascites ___Muscle wasting Calorie needs: Protein needs: Fluid needs: Food Intake: one meal/d is baseline. Am: Seldom eats. May have toast or doughnut Noon: Chips during infusion Pm: [employer]ur[employer] sandwich w/ cyr and ramen Snacks: used to eat chips and dips, but now laying off that. Fluids: mostly diet gingerale or coke with 48-60 oz water/d. 2, 32 ounce bottle of powerade. Supplements/Frequency: ___ Ensure/Plus ___ Boost/Plus ___ CIB - has in the past ___ Other: Teas, vitamins, or other nutritional supplements: one/d for men Food allergies or avoidances: doesn't like avocado Appetite: likes spicy stuff, but gets heartburn Nausea: +, compazine on hand. Vomiting: denies Chewing: deines Dentition: Swallowing: denies Taste Changes: Too good Bowels: could have had a GI bug two weeks or so ago. Now firm. Food availability/purchasing, meal planning and preparation: He usually did, and does more now. Depression: Social Support: Economic Issues: Physical Activity: plays [employer] and [employer] Level of Motivation/Readiness to Change: Nutrition Diagnosis: [facility]. 08/03/17: Weight down minimally. Nausea improved with [...] can return for guidance on weight loss. Nutrition Intervention: ? Increase caloric needs ? Modify diet consistency: ? Increase frequency of meals and snacks ? Need for supplements Nutrition Goals: weight stability and LBM preseravation Educational Handouts provided: -- Other Recommendations: ? Monitoring and Evaluation: Will follow up with Mr. Meek in 2-4 week (s) to re-evaluate. I have provided him with my card and contact information should he have any questions in the mean time. Thank you for this consult. documented in this encounter Plan of Treatment Upcoming Encounters Date Type Specialty Care Team Description 01/19/2022 Office Visit Hematology and Oncology Loan Burton, NOLAN [facility] HEMATOLOGY/[place] [address] 01/19/2022 Infusion Hematology and Oncology Canc eled (F-ARIA CANCEL) 01/25/2022 Hospital Gastroenterology Jose Clark MD [facility] [place] [address] 01/25/2022 Surgery Gastroenterology Jose Clark UPPE R GI R, MD ENDOSCOPY [facility] [place] [address] 01/26/2022 Office Visit Hematology and Oncology Fabian Cameron MD [facility] HEMATOLOGY/[place] [address] Loan Burton, BOAT ASSEMBLER [facility] DR HEMATOLOGY/[place] [address] 01/26/2022 Infusion Hematology and Oncology 02/02/2022 Office Visit Hematology and Oncology Fabian Cameron MD [facility] HEMATOLOGY/[place] [address] 02/02/2022 Infusion Hematology and Oncology 02/22/2022 Telephone Hematology and Oncology Siena Lloyd, MUKUND [facility] DRIVE [place] [address] Scheduled Procedures Name Priority Associated Diagnoses Date/Time EGD, UPPER GI ENDOSCOPY EGD with stent vs 2021 12:00 PM EDT cryotherapy. documented as of this encounter Procedures Procedure Name Priority Date/Time Associated Diagnosis Comme nts LAB SCAN 08/09/2017 12:00 AM Results for this EST procedure are i n the results section . documented in this encounter Results SCAN DOC: LAB (08/09/2017 12:00 AM EST) Narrative 08/09/2017 12:00 AM EST This result has an attachment that is no t available. Ordered by an unspecified provider. Scanning Provider MEDIA MGR SCAN EXT ORDR/RSLT documented in this encounter Visit Diagnoses Not on filedocumented in this encounter Care Teams Frozen Pie Maker Relationship Specialty Start Date End Date Farzaneh Winkler, BOAT ASSEMBLER PCP - General General Internal Medicine 06/05/[address] [place] [address] documented as of this encounter
--- OUTSIDE RECORDS SUMMARY | 2022-01-19 07:40 | XMS_ITS | Encounter Summary ---
:1950 Author Organization [facility] [place] [address] Care Team Providers Name Role Phone Farzaneh Winkler APRN Primary Care Provider Reason for Visit Reason Comments Lung Cancer Encounter Details Date Type Department Care Team Description 07/26/2017 Office Visit Hematology/Oncology Jonathan Bishop, [facility] lung at [facility] adenocarcinoma, right [address] [facility] [place] [phone] (Wo rk) Social History Tobacco Use Types [...] Sign Reading Time Taken Comments Blood Pressure 142/84 07/26/2017 10:41 AM EST Pulse 81 07/26/2017 10:41 AM irregular EST Temperature 36.6 ??C (97.9 ??F) 07/26/2017 10:41 AM EST Respiratory Rate 18 07/26/2017 10:41 AM EST Oxygen Saturation 99% 07/26/2017 10:41 AM EST Inhaled Oxygen Concentration - - Weight 136.4 kg (300 lb 9.6 oz) 07/26/2017 10:41 AM EST Height 180 cm (5' 10.87) 07/26/2017 10:41 AM copied EST Body Mass Index 42.08 07/26/2017 10:41 AM EST documented in this encounter Progress Notes Jonathan Bishop MD - 07/26/2017 10:30 AM EST Images from the original note were not included. Diagnosis: Stage IIIa adenocarcinoma right upper lobe EGFR and ALK negative but PDL-1 90% positive Subjective: Alin comes in today for week 3 carboplatin and docetaxel and the concurrent treatment with radiation therapy of his lung cancer. Dosing is such that we are hoping to cure this cancer. He did have some problems with nausea vomiting and hydration. We switched his oral antiemetics and set him up to get some additional IV medications on Sunday. He was having diarrhea however and did not come in that day. Fortunately that has resolved. Currently there is a viral syndrome going around at home. He is juve little bit lightheaded and has gotten behind a bit on his fluids. Other than that though review ofsystems shows no change in his breathing no difficulties with swallowing no numbness in his hands orfeet he did not have an infusion reaction this past time. Past medical history and social history are reviewed and unchanged from when I saw him last week Past Medical History: Diagnosis Date ??? Adenocarcinoma, [...] [employer] for 8 months ??? 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 [...] Neurological: Negative. Hematological: Negative for adenopathy. BP 142/84 (Patient Position: Sitting) Pulse 81 Comment: irregular Temp 36.6 ??C (97.9 ??F) (Oral) Resp 18 Ht 180 cm (5' 10.87) Comment: copied Wt (!) 136.4 kg (300 lb 9.6 oz) SpO2 99% BMI 42.08 kg/m2 Head: Normocephalic, without obvious abnormality, atraumatic [...] Genetics RESULTS CONSULTATION CASE Outside case labeled [id number] ([id number]), collection date 05/28/2017. [facility] [place] #: [id number] Report to: [facility] Department of Pathology [address] [place] [address] ??[id number] , , Ext [phone] Submitted for molecular testing only. ??This case has not been reviewed in ??its ??entirety. SPECIMEN ANALYZED: ?? [id number] ([id number]) Analysis: ??Examination of DNA extracted from formalin-fixed paraffin-embedded tumor ??tissue for somatic mutation analysis. Results: ??The following gene variants were identified in the submitted tissue: CLINICALLY ACTIONABLE VARIANTS: BRAF: ??NEGATIVE EGFR: ??NEGATIVE KRAS: ??MUTATION c.35G> T p.G12V Exon 2 PIK3CA: ??NEGATIVE OTHER DETECTED VARIANTS: N/A Interpretation: ?? After review of the pathology report and slides, the specimen ([id number]) was selected for mutation analysis from [...] stained slide and 2 unstained slide(s) labeled [id number] ([id number]). Submitted for PD-L1 testing only. ??This case [...] mg/m2/dose = 53 mg Review of his laboratory today does show he is dehydrated. Creatinine is 1.85 up from 1.31. Potassium is 3.0 calcium 8.3 liver tests show slight increase in ALT of 71 ALP though is 99 albumin stable at3.0 CBC shows white count of 9.86 hemoglobin 12.8 hematocrit 38.9 and platelet count of 225 Assessment/plan: Alin is fine today for week 3 treatment. He is a bit on the dehydrated side and will go ahead andgive him an additional 500 cc of fluid. With the diarrhea stopped she should go ahead and normalize his potassium. His carboplatin dose and will need adjustment for his current creatinine level and so we will go ahead and make those changes today. With the new antiemetic he does not think he needs to come in for additional IV antiemetics but I did tell him if he thinks is getting dehydrated again he certainly showed requests hydration. We could do that daily if necessary. We will see him back in a week with lab sooner if there is issues in the interim. documented in this encounter Plan of Treatment Upcoming Encounters Date Type Specialty Care Team Description 01/19/2022 Office Visit Hematology and Oncology Loan Burton, NOLAN [facility] HEMATOLOGY/[place] [address] 01/19/2022 Infusion Hematology and Oncology Canc eled (F-ARIA CANCEL) 01/25/2022 Hospital Gastroenterology Jose Calrk MD [facility] [place]STRO[place] [address] 01/25/2022 Surgery Gastroenterology Jose Clark UPPE R GI R, MD ENDOSCOPY [facility] [place]STROENTER[place] [address] 01/26/2022 Office Visit Hematology and Oncology Fabian Cameron MD [facility] HEMATOLOGY/[place] [address] Loan Burton, NOLAN [facility] HEMATOLOGY/[place] [address] 01/26/2022 Infusion Hematology and Oncology 02/02/2022 Office Visit Hematology and Oncology Fabian Cameron MD [facility] HEMATOLOGY/[place] [address] 02/02/2022 Infusion Hematology and Oncology 02/22/2022 Telephone Hematology and Oncology Siena Lloyd RD [facility] DRIVE HEMATOLOGY [place] [address] Scheduled Procedures Name Priority Associated Diagnoses Date/Time EGD, UPPER GI ENDOSCOPY EGD with stent vs 2021 12:00 PM EDT cryotherapy. documented as of this encounter Visit Diagnoses Diagnosis Primary lung adenocarcinoma, right documented in this encounter Care Teams Staff Mechanical Engineer Relationship Specialty Start Date End Date Farzaneh Winkler, SECURITY SYSTEMS TECHNICIAN PCP - General General Internal Medicine 06/05/[address] [place] [address] documented as of this encounter
--- OUTSIDE RECORDS SUMMARY | 2022-01-19 07:40 | XMS_ITS | Encounter Summary ---
:1950 Author Organization [place] [address] Care Team Providers Name Role Phone PetersonFarzaneh Daria FRANCISCO Primary Care Provider Encounter Details Date Type Department Care Team Description 07/04/2017 Notes Only Radiation Oncology at Carol Shook MSW [facility] OFFICE OF CARE [address] [place] [address] [phone] Social History Tobacco Use Types Packs/Day Years [...] encounter Progress Notes Carol Shook MSW - 07/04/2017 11:59 PM EST Reason for Referral: Brief assessment of social and emotional needs. Met with pt after his sim on 07-04-17 Social Supports:Pt's primary support is his . Their son lives with them. Pt also has 2 daughtersin [facility]. Living Situation/Daily Activities/Transportation: Pt and manage their daily chores and activities. He can drive himself. His son will be his back up patient transportation driver. Son works 3pm to midnight so hopefully appointments will work with his schedule. Work/Finances/Insurance: Pt is retired. He has Medicare and the [facility] for insurance. He reports the [facility] is paying for his treatments here. Advance Directives: Pt indicated he has completed his advance directive. Requested a copy for his record. [place] Status: Pt is a and is connected the the [facility]. Utilization of Community Resources: None at this time. Adjustment to Illness/Mental Health Issues: Pt indicated he is coping the best he can. Need to assess further. Identified Needs: Transportation may be an issue if son's work schedule conflicts with treatments times. Requested pt inform [facility] [facility] if it becomes an issue. Referrals: None at this time. Plan: Informed pt of my availability and will follow for support and resources. documented in this encounter Plan of Treatment Upcoming Encounters Date Type Specialty Care Team Description 01/19/2022 Office Visit Hematology and Oncology Loan Burton, ACUPRESSURE THERAPIST [facility] HEMATOLOGY/[place] [address] 01/19/2022 Infusion Hematology and Oncology Canc eled (F-ARIA CANCEL) 01/25/2022 Hospital Gastroenterology Jose Clark MD [facility] [place] [address] 01/25/2022 Surgery Gastroenterology Jose Clark UPPE R GI R, MD ENDOSCOPY [facility] [place] [address] 01/26/2022 Office Visit Hematology and Oncology Fabian Cameron MD [facility] HEMATOLOGY/[place] [address] Loan Burton, ACUPRESSURE THERAPIST [facility] HEMATOLOGY/[place] [address] 01/26/2022 Infusion Hematology and Oncology 02/02/2022 Office Visit Hematology and Oncology Fabian Cameron MD [facility] HEMATOLOGY/[place] [address] 02/02/2022 Infusion Hematology and Oncology 02/22/2022 Telephone Hematology and Oncology Siena Lloyd RD [facility] DR[place] [address] Scheduled Procedures Name Priority Associated Diagnoses Date/Time EGD, UPPER GI ENDOSCOPY EGD with stent vs 2021 12:00 PM EDT cryotherapy. documented as of this encounter Visit Diagnoses Not on filedocumented in this encounter Care Teams Machine Cloth Measurer Relationship Specialty Start Date End Date Farzaneh Winkler APRN PCP - General General Internal Medicine 06/05/[address] [place] [phone] documented as of this encounter
--- OUTSIDE RECORDS SUMMARY | 2022-01-19 07:40 | XMS_ITS | Encounter Summary ---
:1950 Author Organization [facility] [place] [address] Care Team Providers Name Role Phone Peterson Farzaneh Huff APRN Primary Care Provider Encounter Details Date Type Department Care Team Description 07/25/2017 Office Visit Radiation Oncology at [facility], Maryann Marsh denocarcinoma, lung, [facility] [address] [place] [address] [facility], [place] RADIATION ONCOL OGY [address] [place], [place] [phone] (Wo rk) Social History Tobacco Use Types [...] Sign Reading Time Taken Comments Blood Pressure 84/46 07/25/2017 12:51 PM EST Pulse 56 07/25/2017 12:51 PM EST Temperature 36.7 ??C (98.1 ??F) 07/25/2017 12:00 PM EST Respiratory Rate 16 07/25/2017 12:00 PM EST Oxygen Saturation 98% 07/25/2017 12:00 PM EST Inhaled Oxygen Concentration - - Weight 134.4 kg (296 lb 3.2 oz) 07/25/2017 12:51 PM EST Height - - Body Mass Index 41.47 07/19/2017 10:38 AM EST documented in this encounter Progress Notes Alden Ramos MD - 07/25/2017 1:00 PM EST Images from the original note were not included. RADIATION ONCOLOGY - Weekly On Treatment Visit Note 07/25/17 Alden Ramos MD, MS Radiation Oncology [facility] [phone] (paging automatic oven operator) PATIENT IDENTIFICATION NAME: Alin Meek DATE OF : 1950 DIAGNOSIS: Primary lung adenocarcinoma, right Staging form: Lung, AJCC 8th Edition - Clinical: cT2, cN2, cM0 - Signed by Alden Ramos MD on 07/02/2017 CONCURRENT THERAPY: Carbo/ Taxol (from Dr. Bishop) INTENT OF THERAPY: Definitive (Curative) RADIATION TREATMENT DETAILS: Treatment Site RUL / mediastinum Prescribed Dose 60 Gy in 30 fractions Current Dose: 20 Gy in 10 fractions Workers Compensation Coordinator [place] from Current Plan (minimum 60 Gy isodose volume shown): INTERVAL HISTORY Subjective: General - Overall feels fair. Resp - Mild esophagitis. He has BMX / carafate which he finds helpful. Otherwise no new cough / SOB.Ongoing CHENG. Pain: Pain score today is 0/10. Nutrition: Weight at start of therapy was 307 lbs --> 307lbs today. Eating normal diet. Medications 07/25/17 1231 Medication Sig Taking? SERTRALINE HCL (ZOLOFT ORAL) [...] lungs every 4 hours as needed. Yes prochlorperazine (COMPAZINE) 10 mg Tablet Take 1 tablet by mouth every 6 hours as needed for Nausea. Patient not taking: Reported on 07/25/2017 omeprazole (PRILOSEC) 40 mg Capsule, Delayed Release(E.C.) Take daily, 1/2 hour prior to breakfast on an empty stomach. Patient not taking: Reported on 07/19/2017 diphenhydrAMINE/aluminum-magnesium hydroxide with simethicone/lidocaine (BMX) oral suspension Swallow 10 mls every 3h as needed for esophageal pain. Patient not taking: Reported on 07/12/2017 sucralfate (CARAFATE) 1 gram Tablet Dissolve in 5ml of water and swallow for esophageal pain. You can take this every 3hours as needed. Patient not taking: Reported on 07/25/2017 triamcinolone (KENALOG) 0.1 % Cream Apply topically 2 times daily as needed. Interval Imaging / Laboratory Studies: I have personally reviewed this patient's interval portal imaging to confirm accurate positioning and alignment which matches the patient's original approved treatment planning images. EXAM: BP (!) 84/46 Pulse 56 Temp 36.7 ??C (98.1 ??F) Resp 16 Wt 134.4 kg (296 lb 3.2 oz) SpO2 98% BMI 41.47 kg/m2 . Orthostatics were checked today - negative. Constitutional: he appears well-developed and well-nourished. No [...] chair IMPRESSION/PLAN Impression: Tolerating radiotherapy as anticipated. Hypotensive 2/2 diarrhea. Will notify PCP to discuss holdinganti-htn meds. Plan: Continue treatment as planned. documented in this encounter Plan of Treatment Upcoming Encounters Date Type Specialty Care Team Description 01/19/2022 Office Visit Hematology and Oncology Loan Burton APRN [facility] HEMATOLOGY/[place] [address] 01/19/2022 Infusion Hematology and Oncology Canc eled (F-ARIA CANCEL) 01/25/2022 Hospital Gastroenterology Jose Clark MD [facility] [place] [address] 01/25/2022 Surgery Gastroenterology Jose Clark UPPE R GI R, MD ENDOSCOPY [facility] [place] [address] 01/26/2022 Office Visit Hematology and Oncology Fabian Cameron MD [facility] HEMATOLOGY/[place] [address] Loan Burton APRN [facility] HEMATOLOGY/[place] [address] 01/26/2022 Infusion Hematology and Oncology 02/02/2022 Office Visit Hematology and Oncology Fabian Cameron MD [facility] HEMATOLOGY/[place] [address] 02/02/2022 Infusion Hematology and Oncology 02/22/2022 Telephone Hematology and Oncology Siena Lloyd RD [facility] DRIVE HEMATOLOGY [place] [address] Scheduled Procedures Name Priority Associated Diagnoses Date/Time EGD, UPPER GI ENDOSCOPY EGD with stent vs 2021 12:00 PM EDT cryotherapy. documented as of this encounter Visit Diagnoses Diagnosis Adenocarcinoma, lung, right documented in this encounter Care Teams Carton Inspector Relationship Specialty Start Date End Date Farzaneh Winkler, MAILROOM PERSONNEL PCP - General General Internal Medicine 06/05/[address] [place] [address] documented as of this encounter
--- OUTSIDE RECORDS SUMMARY | 2022-01-19 07:40 | XMS_ITS | Encounter Summary ---
:1950 Author Organization [facility] [place] [address] Care Team Providers Name Role Phone Farzaneh Winkler Daria FRANCISCO Primary Care Provider Encounter Details Date Type Department Care Team Description 08/02/2017 Clinical Support Hematology/Oncology at Adrina Gold [facility] M[address] [place] [address] Social History Tobacco Use Types [...] encounter Progress Notes Adrian Gold RD - 08/02/2017 11:30 AM EST [facility] Dietitian Follow Up Assessment Seen By: Katt Gold, , RD, GUARD MUSEUM, LD Referred by: BROOKE Miranda Reason for visit: new lung start, diarrhea Patient and diagnosis: Alin comes in today for week 3 carboplatin and docetaxel and the concurrent treatment with radiation therapy of his lung cancer. Assessment: HPI: Patient Active Problem List Diagnosis Code ??? Mass of right lung R91.8 ??? Primary lung adenocarcinoma, right C34.91 Meds: reviewed Labs: reviewed Ht: Oncology Vitals 07/26/2017 Height 180 cm Wt: Wt Readings from Last 3 Encounters: 08/02/17 134.7 kg (297 lb) 07/26/17 (!) 136.4 kg (300 lb 9.6 oz) 07/25/17 134.4 kg (296 lb 3.2 oz) Wt Hx: UBW: % UBW: IBW: +/- 10% % IBW: BMI: 42 ___ Edema ___ Ascites ___Muscle wasting Calorie needs: Protein needs: Fluid needs: Food Intake: one meal/d is baseline. Am: Seldom eats. May have toast or doughnut Noon: Pm: Beef stew Snacks: used to eat chips and dips, but now laying off that. Fluids: mostly diet gingerale or coke with 48-60 oz water/d. 1, 32 ounce bottle of powerade, Supplements/Frequency: ___ Ensure/Plus ___ Boost/Plus ___ CIB ___ Other: Teas, vitamins, or other nutritional supplements: one/d for men Food allergies or avoidances: doesn't like avocado Appetite: likes spicy stuff, but gets heartburn Nausea: +, compazine on hand. Vomiting: denies Chewing: deines Dentition: Swallowing: denies Taste Changes: Too good Bowels: could have had a GI bug a week or so ago. Had diarrhea, continues to improve. Food availability/purchasing, meal planning and preparation: He usually did, and does more now. Depression: Social Support: Economic Issues: Physical Activity: plays [employer] and [employer] Level of Motivation/Readiness to Change: Nutrition Diagnosis: [facility]. 08/03/17: Weight down minimally. Nausea improved [...] up in one week to review bowels. Nutrition Intervention: ? Increase caloric needs ? Modify diet consistency: ? Increase frequency of meals and snacks ? Need for supplements Nutrition Goals: weight stability and LBM preseravation Educational Handouts provided: -- Other Recommendations: ? Monitoring and Evaluation: Will follow up with Mr. Meek in two week (s) to re-evaluate. I have provided him with my card and contact information should he have any questions in the mean time. Thank you for this consult. documented in this encounter Plan of Treatment Upcoming Encounters Date Type Specialty Care Team Description 01/19/2022 Office Visit Hematology and Oncology Loan Burton APRN [facility] HEMATOLOGY/[place] [address] 01/19/2022 Infusion Hematology and Oncology Canc eled (F-ARIA CANCEL) 01/25/2022 Hospital Gastroenterology Jose Clark MD [facility] [place] [address] 01/25/2022 Surgery Gastroenterology Jose Clark UPPE R GI R, MD ENDOSCOPY [facility] [place] [address] 01/26/2022 Office Visit Hematology and Oncology Fabian Cameron MD [facility] HEMATOLOGY/[place] [address] Loan Burton APRN [facility] HEMATOLOGY/[place] [address] 01/26/2022 Infusion Hematology and Oncology 02/02/2022 Office Visit Hematology and Oncology Fabian Cameron MD [facility] HEMATOLOGY/[place] [address] 02/02/2022 Infusion Hematology and Oncology 02/22/2022 Telephone Hematology and Oncology Siena Lloyd RD [facility] DRIVE [place] [address] Scheduled Procedures Name Priority Associated Diagnoses Date/Time EGD, UPPER GI ENDOSCOPY EGD with stent vs 2021 12:00 PM EDT cryotherapy. documented as of this encounter Visit Diagnoses Diagnosis Dietary counseling Dietary surveillance and counseling documented in this encounter Care Teams Escrow Manager Relationship Specialty Start Date End Date Farzaneh Winkler, FRUIT PEELER PCP - General General Internal Medicine 06/05/[address] [place] [address] documented as of this encounter
--- OUTSIDE RECORDS SUMMARY | 2022-01-19 07:40 | XMS_ITS | Encounter Summary ---
:1950 Author Organization [facility] [place] [address] Care Team Providers Name Role Phone Peterson Farzaneh Huff APRN Primary Care Provider Encounter Details Date Type Department Care Team Description 07/03/2017 Telephone Radiation Oncology at [facility], Madina Marcum RN [address] [phone] Social History Tobacco Use [...] this encounter Miscellaneous Notes Telephone Encounter - Madina Wall RN - 07/03/2017 12:08 PM EST Radiation Oncology Nurse Telephone Note [facility] [place] [place] telephone call to patient regarding tomorrow's plan for CT SIM with IV contrast. Patient notified of arrival time to our clinic at 12:00. He was instructed to drink 64 oz fluids today, tomorrow and to adequately hydrate him and to flush his kidneys of the IV contrast. Patient verbalized understanding of these instructions. An order was place for CREA to be done prior per order of Dr Ramos, however patient states that [facility] last Abdi and asked if we can get it from them. Plan: Will ask our elementary secretary to obtain recent CREA from the [facility] and arrange for draw at [facility] if a CREA was not done. documented in this encounter Plan of Treatment Upcoming Encounters Date Type Specialty Care Team Description 01/19/2022 Office Visit Hematology and Oncology Loan Burton APRN [facility] HEMATOLOGY/[place] [address] 01/19/2022 Infusion Hematology and Oncology Canc eled (F-ARIA CANCEL) 01/25/2022 Hospital Gastroenterology Jose Clark MD [facility] [place]STRO[place] [address] 01/25/2022 Surgery Gastroenterology Jose Clark UPPE R GI R, MD ENDOSCOPY [facility] GASTROENTER[place] [address] 01/26/2022 Office Visit Hematology and Oncology Fabian Cameron MD [facility] HEMATOLOGY/[place] [address] Loan Burton APRN [facility] HEMATOLOGY/[place] [address] 01/26/2022 Infusion Hematology and Oncology 02/02/2022 Office Visit Hematology and Oncology Fabian Cameron MD [facility] HEMATOLOGY/[place] [address] 02/02/2022 Infusion Hematology and Oncology 02/22/2022 Telephone Hematology and Oncology Siena Lloyd RD [facility] [place]ATOLOGY [place] [address] Scheduled Procedures Name Priority Associated Diagnoses Date/Time EGD, UPPER GI ENDOSCOPY EGD with stent vs 2021 12:00 PM EDT cryotherapy. documented as of this encounter Visit Diagnoses Diagnosis Adenocarcinoma, lung, right documented in this encounter Care Teams Vascular Technologist Sonographer Relationship Specialty Start Date End Date Farzaneh Winkler, TAPE MAKER PCP - General General Internal Medicine 06/05/[address] [place] [address] documented as of this encounter
--- OUTSIDE RECORDS SUMMARY | 2022-01-19 07:40 | XMS_ITS | Encounter Summary ---
:1950 Author Organization [facility] [place] [address] Care Team Providers Name Role Phone Farzaneh Winkler APRN Primary Care Provider Encounter Details Date Type Department Care Team Description 07/19/2017 Telephone Hematology/Oncology at Cassi Martinez RN [address] [phone] Social History Tobacco Use [...] this encounter Miscellaneous Notes Telephone Encounter - Cassi Martinez RN - 07/19/2017 4:47 PM EST Signed prescription for compazine faxed to [facility]. Fax number [phone]. Confirmation page received. Patient notified that the prescription had been sent and he should be receiving the medication. Paperwork kept in my file drawer. documented in this encounter Plan of Treatment Upcoming Encounters Date Type Specialty Care Team Description 01/19/2022 Office Visit Hematology and Oncology Loan Burton APRN [facility] HEMATOLOGY/[place] [address] 01/19/2022 Infusion Hematology and Oncology Canc eled (F-ARIA CANCEL) 01/25/2022 Hospital Gastroenterology Jose Clark MD [facility] [place] [address] 01/25/2022 Surgery Gastroenterology Jose Clark UPPE R GI R, MD ENDOSCOPY [facility] [place] [address] 01/26/2022 Office Visit Hematology and Oncology Fabian Cameron MD [facility] HEMATOLOGY/[place] [address] Loan Burton APRN [facility] HEMATOLOGY/[place] [address] 01/26/2022 Infusion Hematology and Oncology 02/02/2022 Office Visit Hematology and Oncology Fabian Cameron MD [facility] HEMATOLOGY/[place] [address] 02/02/2022 Infusion Hematology and Oncology 02/22/2022 Telephone Hematology and Oncology Siena Lloyd RD [facility] DRIVE [place] [address] Scheduled Procedures Name Priority Associated Diagnoses Date/Time EGD, UPPER GI ENDOSCOPY EGD with stent vs 2021 12:00 PM EDT cryotherapy. documented as of this encounter Visit Diagnoses Not on filedocumented in this encounter Care Teams Mobile Sales Technician Relationship Specialty Start Date End Date Rodier, Farzaneh P, TOOL GRINDER OPERATOR SURFACE PCP - General General Internal Medicine 06/05/[address] [place] [address] documented as of this encounter
--- OUTSIDE RECORDS SUMMARY | 2022-01-19 07:40 | XMS_ITS | Encounter Summary ---
:1950 Author Organization [facility] [place] [address] Care Team Providers Name Role Phone Farzaneh Winkler APRN Primary Care Provider Reason for Visit Reason Comments Chemotherapy Cycle 1 Day 1 Treatment/Therapy Plan Authorization (Routine) - Closed Specialty Diagnoses / Procedures Referred By Contact Refer red To Contact Diagnoses Primary lung adenocarcinoma, right Jonathan Bishop MD [facility] Hem Onc Office [address] [place] [address] 458 [address] [place] [address] Phone: Fax: Referral ID Status Reason Start Date Expiration Date Visits Requ ested Visits Authorized [id number] Closed 07/10/2017 07/10/2018 1 1 Encounter Details Date Type Department Care Team Description 07/12/2017 [place] [place] [place] [facility] [address] [place] [address] [phone] Social History Tobacco Use Types [...] Sign Reading Time Taken Comments Blood Pressure 106/61 07/12/2017 11:06 AM EST Pulse 91 07/12/2017 11:06 AM EST Temperature 36.6 ??C (97.9 ??F) 07/12/2017 11:06 AM EST Respiratory Rate 18 07/12/2017 11:06 AM EST Oxygen Saturation 100% 07/12/2017 11:06 AM EST Inhaled Oxygen Concentration - - Weight 139.3 kg (307 lb) 07/12/2017 11:06 AM EST Height 180 cm (5' 10.87) 07/12/2017 11:06 AM EST Body Mass Index 42.98 07/12/2017 11:06 AM EST documented in this encounter Progress Notes Dina Miranda RN - 07/12/2017 11:00 AM EST INFUSION THERAPY ADMINISTRATION NOTES DIAGNOSIS: Lung Cancer CYCLE #:1 Day 1 REASON FOR VISIT: Docetaxel/Carboplatin SUBJECTIVE Alin Meek offers no complaints. OBJECTIVE LAB DATA: adequate for treatment IV ACCESS: PIV R hand. Good blood return. Discontinued at end of treatment Pre administration: Chemotherapy orders independently verified for drug name, route, and dosage per patient's height, weight and BSA by Bev MARS & Pharmacist on site REACTIONS (DESCRIPTIO, fN, TIME, INTERVENTION AND EFFECTIVENESS) 12:43: c/o feeling hot and slightly labored breathing, face red 12:44 Docetaxel stopped, 16.2 infused. NS open 12:46 142/70 HR 75 Sat 94 on RA resp20. Symptoms resolving. 12:48: Denis BURKP @ bedside Orders received for Benedryl 25 mg IV and Dexamethasone 10 MG IV and to wait 30 minutes after meds to restart 13:00Symptoms Completely resolved 13:11 Benedryl 25/ Dex 10 IV given IVP over 5 minutes 13:45 docetaxel restarted. ASSESSMENT Alin Meek was awake, alert and tolerated remainder of treatment well. Pt. chemo teaching instructions included: During clinic hours (8am-5pm Sunday-Sunday): pt. can call [phone] with questions or concerns. After clinic hours (5pm-8am Sunday-Sunday and weekends) pt can call [phone] and ask for the carpenter supervisor wooden ship/oncologist composition professor. Alin Meek verbalized understanding of potential chemotherapy side effects and home care including but not limited to- handwashing to prevent infection, signs and symptoms of low blood counts (fever, fatigue, bleeding), to call with a fever of 100.4 or greater, any significant constipation/diarrhea, importance of nutrition and fluid intake (drinking at least 32-64 ounces of non-caffeinated beverages/day), mouth care. Alin Meek verbalized understanding of how to take prescription medications given for home use after chemotherapy. Has prescription for Compazine. PLAN Return to clinic per routine. documented in this encounter Plan of Treatment Upcoming Encounters Date Type Specialty Care Team Description 01/19/2022 Office Visit Hematology and Oncology Loan Burton, NOLAN [facility] HEMATOLOGY/[place] [address] 01/19/2022 Infusion Hematology and Oncology Canc eled (F-ARIA CANCEL) 01/25/2022 Hospital Gastroenterology Jose Clark MD [facility] [place] [address] 01/25/2022 Surgery Gastroenterology Jose Clark UPPE R GI R, MD ENDOSCOPY [facility] [place] [address] 01/26/2022 Office Visit Hematology and Oncology Fabian Cameron MD [facility] HEMATOLOGY/[place] [address] Loan Burton, NOLAN [facility] HEMATOLOGY/[place] [address] 01/26/2022 Infusion Hematology and Oncology 02/02/2022 Office Visit Hematology and Oncology Fabian Cameron MD [facility] HEMATOLOGY/[place] [address] 02/02/2022 Infusion Hematology and Oncology 02/22/2022 Telephone Hematology and Oncology Siena Lloyd RD [facility] DRIVE HEMATOLOGY [place] [address] Scheduled Procedures Name Priority Associated Diagnoses Date/Time EGD, UPPER GI ENDOSCOPY EGD with stent vs 2021 12:00 PM EDT cryotherapy. documented as of this encounter Visit Diagnoses Diagnosis Primary lung adenocarcinoma, right documented in this encounter Administered Medications Inactive Administered Medications - up to 3 most recent administrations Medication Order MAR Action Action Date Dose Rate Site CARBOplatin (PARAPLATIN) 294 New Bag 07/12/2017 2:48 PM EST 294 mg 559 mL/hr mg in sodium chloride 0.9% 279.4 mL chemo infusion 294 mg (Target AUC = 2), Intravenous, WEEKLY, 1 dose, First dose on Stephanie 07/12/17 at 1230, Administer over 30 Minutes, Hold Parameters: CARBOplatin, Call provider for serum creatinine less than (mg/dL): .2, Call provider for serum creatinine greater than (mg/dL): 2, External serum creatinine results used to calculate dose? Yes, Enter serum creatinine value (mg/dL): 1.2, Enter serum creatinine result date: 06/29/2017 dexamethasone (DECADRON) injection 10 mg Given 07/12/2017 11:40 AM EST 10 mg 10 mg, Intravenous, ONCE, 1 dose, On Stephanie 07/12/17 at 1130, Administer 60 minutes prior to DOCEtaxel dexamethasone (DECADRON) injection 10 mg Given 07/12/2017 1:14 PM EST 10 mg 10 mg, Intravenous, ONCE, 1 dose, On Stephanie 07/12/17 at 1330, Extra 10mg of dex for infusion reaction, Routine diphenhydrAMINE (BENADRYL) injection 25 mg Given 07/12/2017 11:28 AM EST 25 mg 25 mg, Intravenous, ONCE, 1 dose, On Stephanie 07/12/17 at 1130, Administer 60 minutes prior to DOCEtaxel, Routine diphenhydrAMINE (BENADRYL) injection 25 mg Given 07/12/2017 1:11 PM EST 25 mg 25 mg, Intravenous, ONCE, 1 dose, On Stephanie 07/12/17 at 1330, Routine DOCEtaxel (TAXOTERE) 53 mg in Restarted 07/12/2017 1:45 PM EST 5 3 mg 102.7 mL/hr sodium chloride 0.9% Non-PVC 102.65 mL chemo infusion 53 mg (rounded from 53.4 mg = 20 mg/m2/dose ? 2.67 m2 Treatment Plan BSA from Recorded weight), Intravenous, ONCE, 1 dose, On Stephanie 07/12/17 at 1230, Administer over 60 Minutes, Warning Vesicant/Irritant Medication New Bag 07/12/2017 12:34 PM EST 53 mg 103 mL/hr famotidine (PEPCID) injection 20 mg Given 07/12/2017 11:30 AM EST 20 mg 20 mg, Intravenous, ONCE, 1 dose, On Stephanie 07/12/17 at 1130, Administer 60 minutes prior to DOCEtaxel fosaprepitant (EMEND) 150 mg in New Bag 07/12/2017 11:44 AM ES T 150 mg 310 mL/hr sodium chloride 0.9% 155 mL infusion 150 mg, Intravenous, at 310 mL/hr, ONCE, 1 dose, On Stephanie 07/12/17 at 1130, Routine palonosetron (ALOXI) injection 0.25 mg Given 07/12/2017 11:36 AM EST 0.25 mg 0.25 mg, Intravenous, ONCE, 1 dose, On Stephanie 07/12/17 at 1130, Administer over 30 seconds., Routine documented in this encounter Care Teams Grain Combiner Relationship Specialty Start Date End Date Farzaneh Winkler APRN PCP - General General Internal Medicine 06/05/[address] [place], [place] [id number] documented as of this encounter
--- OUTSIDE RECORDS SUMMARY | 2022-01-19 07:40 | XMS_ITS | Encounter Summary ---
:1950 Author Organization [facility] [place] [address] Care Team Providers Name Role Phone Farzaneh Winkler APRN Primary Care Provider Reason for Visit Reason Comments Lung Cancer Encounter Details Date Type Department Care Team Description 08/02/2017 Office Visit Hematology/Oncology Jonathan Bishop, [facility] lung at [facility] adenocarcinoma, right [address] [facility], [place] [phone] (Wo rk) Social History Tobacco Use Types [...] Sign Reading Time Taken Comments Blood Pressure 135/73 08/02/2017 10:11 AM EST Pulse 76 08/02/2017 10:11 AM EST Temperature 36.6 ??C (97.8 ??F) 08/02/2017 10:11 AM EST Respiratory Rate 20 08/02/2017 10:11 AM EST Oxygen Saturation 100% 08/02/2017 10:11 AM EST Inhaled Oxygen Concentration - - Weight 134.7 kg (297 lb) 08/02/2017 10:11 AM EST Height 180 cm (5' 10.87) 08/02/2017 10:11 AM EST sandeep stephenson Body Mass Index 41.58 08/02/2017 10:11 AM EST documented in this encounter Progress Notes Jonathan Bishop MD - 08/02/2017 10:30 AM EST Images from the original note were not included. Diagnosis: Stage IIIa adenocarcinoma right upper lobe EGFR and ALK negative but PDL-1 90% positive Directive: Alin comes in today for week for concurrent chemotherapy with radiation therapy and the definitive treatment of his stage III lung cancer. He has tumor near the esophagus but so far has not had any esophageal symptoms. When I saw him last week he was having trouble being hydrated and we needed to dose reduce his carboplatin dose because he was actually a bit dehydrated by lab. Gave him some extra fluid and over the past week he has done a lot better on nausea control and is feeling well now. He is not having any swallowing problems and his breathing has been fine. Review of systems is otherwise quite negative. Past medical history and social history [...] [employer] for 8 months ??? 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 [...] Genetics RESULTS CONSULTATION CASE Outside case labeled [id number] ([id number]), collection date 05/28/2017. [facility] Tracking #: [id number] Report to: [facility] Department of Pathology [address] [place] [address] ??[phone] , , Ext [phone] Submitted for molecular testing only. ??This case has not been reviewed in ??its ??entirety. SPECIMEN ANALYZED: ?? [id number] (outside [id number]) Analysis: ??Examination of DNA extracted from formalin-fixed paraffin-embedded tumor ??tissue for somatic mutation analysis. Results: ??The following gene variants were identified in the submitted tissue: CLINICALLY ACTIONABLE VARIANTS: BRAF: ??NEGATIVE EGFR: ??NEGATIVE KRAS: ??MUTATION c.35G> T p.G12V Exon 2 PIK3CA: ??NEGATIVE OTHER DETECTED VARIANTS: N/A Interpretation: ?? After review of the pathology report and slides, the specimen ( [id number]) was selected for mutation analysis from [...] stained slide and 2 unstained slide(s) labeled [id number] ([id number]). Submitted for PD-L1 testing only. ??This case has not been reviewed in its ? entirety. Tumor Proportion Score (TPS): ? % Expression: 90% Interpretation Table: PD-L1 assay (22C3 pharmDX) for Keytruda (pembrolizumab) Tumor Proportion Score (TPS): ? <1% ?PD-L1 Negative ? >1% ? PD-L1 Expression ?? > 50% ? PD-L1 High [facility] 07/12/2017 Day, Cycle Day 1, Cycle 1 CARBOplatin (PARAPLATIN) IV 294 mg DOCEtaxel (TAXOTERE) IV 20 mg/m2/dose = 53 mg Laboratory today is r [facility] ([facility]) 07/19/2017 Day, Cycle Day 8, Cycle 1 CARBOplatin (PARAPLATIN) IV 294 mg DOCEtaxel (TAXOTERE) IV 20 mg/m2/dose = 53 mg [facility] ([facility]) 07/26/2017 Day, Cycle Day 15, Cycle 1 CARBOplatin (PARAPLATIN) IV 208 mg DOCEtaxel (TAXOTERE) IV 20 mg/m2/dose = 53 mg Laboratory today shows a marked improvement in creatinine down to 1.21. Electrolytes are normal witha subtle decrease in potassium at 3.3. Liver tests are normal with an ALP of 99 and a bilirubin of 0.46 albumin is slightly lower at 2.9. CBC shows white count of 6.17 hemoglobin 11.8 hematocrit 36.2 and platelet count of 178 his absolute neutrophil count is 5.06 Assessment/plan: Alin is fine today for treatment. We went ahead and adjusted his carboplatin dosing for his improved creatinine. His blood counts are fine although he has some chemotherapy associated anemia which will continue to watch. He is asymptomatic so there is no need for transfusion. As noted his antiemetics seem to be working and there is no adjustments made there. We will go ahead and set him up for week 5 treatment next week with lab prior to that visit. He will let us know if there is issues or problems in the interim. Plans are for 6 weekly treatments. documented in this encounter Plan of Treatment Upcoming Encounters Date Type Specialty Care Team Description 01/19/2022 Office Visit Hematology and Oncology Loan Burton APRN [facility] HEMATOLOGY/[place] [address] 01/19/2022 Infusion Hematology and Oncology Canc eled (F-ARIA CANCEL) 01/25/2022 Hospital Gastroenterology Jose Clark MD [facility] [place] [address] 01/25/2022 Surgery Gastroenterology Jose Clark UPPE R GI R, MD ENDOSCOPY [facility] [place] [address] 01/26/2022 Office Visit Hematology and Oncology Fabian Cameron MD [facility] HEMATOLOGY/[place] [address] Loan Burton APRN [facility] HEMATOLOGY/[place] [address] 01/26/2022 Infusion Hematology and Oncology 02/02/2022 Office Visit Hematology and Oncology Fabian Cameron MD [facility] HEMATOLOGY/[place] [address] 02/02/2022 Infusion Hematology and Oncology 02/22/2022 Telephone Hematology and Oncology Siena Lloyd RD [facility] [place]ATOLOGY [place] [address] Scheduled Procedures Name Priority Associated Diagnoses Date/Time EGD, UPPER GI ENDOSCOPY EGD with stent vs 2021 12:00 PM EDT cryotherapy. documented as of this encounter Visit Diagnoses Diagnosis Primary lung adenocarcinoma, right documented in this encounter Care Teams Assembler Dc Field Ring Relationship Specialty Start Date End Date Farzaneh Winkler, INSURANCE CLERK PCP - General General Internal Medicine 06/05/[address] [place] [address] documented as of this encounter
--- OUTSIDE RECORDS SUMMARY | 2022-01-19 07:40 | XMS_ITS | Encounter Summary ---
:1950 Author Organization [facility] [place] [address] Care Team Providers Name Role Phone Farzaneh Winkler APRN Primary Care Provider Encounter Details Date Type Department Care Team Description 06/08/2017 Telephone Thoracic Surgery at [facility] [place] [address] Social History Tobacco Use Types Packs/Day Years Used Date Never Assessed Sex Assigned at Date Recorded Not on file documented as of this encounter Miscellaneous Notes Telephone Encounter - Felipa Rooney LNA - 06/08/2017 11:28 AM EST Called patient, left message to return call. Mr. Meek needs to schedule an MRI. If he want to havehis imaging done at the [facility]. His PCP Farzaneh Winkler APRN is willing to write this order and expedite scheduling. We would need to fax the order to [phone] [facility] urgent on order. documented in this encounter Plan of Treatment Upcoming Encounters Date Type Specialty Care Team Description 01/19/2022 Office Visit Hematology and Oncology Loan Burton APRN [facility] HEMATOLOGY/[place] [address] 01/19/2022 Infusion Hematology and Oncology Canc eled (F-ARIA CANCEL) 01/25/2022 Hospital Gastroenterology Jose Clark MD [facility] GASTROENTEROLOG [place] [address] 01/25/2022 Surgery Gastroenterology Jose Clark EGD, LOLA Yates MD ENDOSCOPY [facility] GASTROENTEROLOG [place] [address] 01/26/2022 Office Visit Hematology and Oncology Fabian Cameron MD [facility] DR HEMATOLOGY/[place] [address] Loan Burton APRN [facility] HEMATOLOGY/[place]COLOG[place] [address] 01/26/2022 Infusion Hematology and Oncology 02/02/2022 Office Visit Hematology and Oncology Fabian Cameron MD [facility] HEMATOLOGY/[place]CO [place] [address] 02/02/2022 Infusion Hematology and Oncology 02/22/2022 Telephone Hematology and Oncology Siena Lloyd, MUKUND [facility] [address] HEMATOLOGY [place] [address] Scheduled Procedures Name Priority Associated Diagnoses Date/Time EGD, UPPER GI ENDOSCOPY EGD with stent vs 2021 12:00 PM EDT cryotherapy. documented as of this encounter Visit Diagnoses Not on filedocumented in this encounter Care Teams Hide Shaker Relationship Specialty Start Date End Date Farzaneh Winkler, MEETING PLANNER PCP - General General Internal Medicine 06/05/[address] [place] [phone] documented as of this encounter
--- OUTSIDE RECORDS SUMMARY | 2022-01-19 07:40 | XMS_ITS | Encounter Summary ---
:1950 Author Organization [facility] [place] [address] Care Team Providers Name Role Phone Farzaneh Winkler NOLAN Primary Care Provider Encounter Details Date Type Department Care Team Description 06/01/2017 Multidisciplinary Care Thoracic Surgery Otf Jose of right lung Committee at [facility] MD Fariba [facility] [place] [address] SURGERY [phone] [place] [address] Social History Tobacco Use Types Packs/Day Years Used Date Never Assessed Sex Assigned at Date Recorded Not on file documented as of this encounter Progress Notes Otf Jose MD - 06/01/2017 10:20 AM EST Thoracic - Tumor Board Note Date Presented: Presenting Physician: Sonny Jose Diagnosis/Tumor Site: Right lung mass Is this Metastatic Disease: no Synopsis of History/HPI: 66 y/o male with right lung mass Imaging: CT chest Pathology/Histology: Unknown Stage: At least Stage IIIA Clinical Data (Exams, Labs, etc.): Molecular Pathology Results: Clinical Trial Availability: Unknown Options Discussed: chemo/surgery vs. Chemo/XRT Recommendations: Complete staging work-up, review path, discuss options with patient. DISCLAIMER: The patient was discussed and the tumor board made recommendations but it is ultimately up to the treatment provider(s) and the patient to determine the patient???s care. documented in this encounter Plan of Treatment Upcoming Encounters Date Type Specialty Care Team Description 01/19/2022 Office Visit Hematology and Oncology Loan Burton, NOLAN [facility] HEMATOLOGY/[place] [address] 01/19/2022 Infusion Hematology and Oncology Canc eled (F-ARIA CANCEL) 01/25/2022 Hospital Gastroenterology Jose Clark MD [facility] GASTROENTEROLOG [place] [address] 01/25/2022 Surgery Gastroenterology Jose Clark UPPE R GI R, MD ENDOSCOPY [facility] GASTROENTER[place] [address] 01/26/2022 Office Visit Hematology and Oncology Fabian Cameron MD [facility] HEMATOLOGY/[place] [address] Loan Burton APRN [facility] HEMATOLOGY/[place] [address] 01/26/2022 Infusion Hematology and Oncology 02/02/2022 Office Visit Hematology and Oncology Fabian Cameron MD [facility] HEMATOLOGY/[place] [address] 02/02/2022 Infusion Hematology and Oncology 02/22/2022 Telephone Hematology and Oncology Siena Lolyd RD [facility] DRIVE HEMATOLOGY [place] [address] Scheduled Procedures Name Priority Associated Diagnoses Date/Time EGD, UPPER GI ENDOSCOPY EGD with stent vs 2021 12:00 PM EDT cryotherapy. documented as of this encounter Visit Diagnoses Diagnosis Mass of right lung documented in this encounter Care Teams Career Center Director Relationship Specialty Start Date End Date Farzaneh Winkler, RESEARCH & INSIGHTS EXECUTIVE PCP - General General Internal Medicine 06/05/[address] [place] [address] documented as of this encounter
--- OUTSIDE RECORDS SUMMARY | 2022-01-19 07:40 | XMS_ITS | Encounter Summary ---
:1950 Author Organization [facility] [place] [address] Care Team Providers Name Role Phone Farzaneh Winkler APRN Primary Care Provider Reason for Visit Reason Comments Lung Cancer Encounter Details Date Type Department Care Team Description 07/19/2017 Office Visit Hematology/Oncology Jonathan Bishop, [facility] lung at [facility] adenocarcinoma, right [address] [facility] [place] [id number] [phone] (Wo rk) Social History Tobacco Use Types [...] Sign Reading Time Taken Comments Blood Pressure 114/84 07/19/2017 10:38 AM EST Pulse 89 07/19/2017 10:38 AM EST irr/irr Temperature 36.7 ??C (98.1 ??F) 07/19/2017 10:38 AM EST Respiratory Rate 18 07/19/2017 10:38 AM EST Oxygen Saturation 100% 07/19/2017 10:38 AM EST Inhaled Oxygen Concentration - - Weight 139.3 kg (307 lb) 07/19/2017 10:38 AM EST Height 180 cm (5' 10.87) 07/19/2017 10:38 AM EST Body Mass Index 42.98 07/19/2017 10:38 AM EST documented in this encounter Progress Notes Jonathan Bishop MD - 07/19/2017 10:30 AM EST Images from the original note were not included. 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 He is getting concurrent therapy. He has done reasonably well this past week but did have a little bit of problem with shortness of breath with the docetaxel infusion. Holding the infusion for short time and reinstituting it seemed to be enough to get him to tolerate that. Additionally he has had some nausea throughout the week and [facility]. He is not having any swallowing difficulties or pain with swallowing. Breathing is about the same no particular cough. He is not constipated and is grateful for that. Review of systems otherwise negative. We did talk about giving him additional IV nausea medicine this next Sunday and he is fine with that plan. Hehas a support in place and is happy with that. Past Medical History: Diagnosis Date ??? 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 Smoking [...] Genetics RESULTS CONSULTATION CASE Outside case labeled [id number] ([id number]), collection date 05/28/2017. [facility] [place] #: [id number] Report to: Health System Department of Pathology [address] [place] [address] ??[phone] , , Ext [phone] Submitted for molecular testing only. ??This case has not been reviewed in ??its ??entirety. SPECIMEN ANALYZED: ?? [id number] (outside [id number]) Analysis: ??Examination of DNA extracted from formalin-fixed paraffin-embedded tumor ??tissue for somatic mutation analysis. Results: ??The following gene variants were identified in the submitted tissue: CLINICALLY ACTIONABLE VARIANTS: BRAF: ??NEGATIVE EGFR: ??NEGATIVE KRAS: ??MUTATION c.35G> T p.G12V Exon 2 PIK3CA: ??NEGATIVE OTHER DETECTED VARIANTS: N/A Interpretation: ?? After review of the pathology report and slides, the specimen ([id number]) was selected for mutation analysis from [...] stained slide and 2 unstained slide(s) labeled [id number] ([id number]). Submitted for PD-L1 testing only. ??This case [...] mg/m2/dose = 53 mg Laboratory today is reviewed. Electrolytes are normal creatinine is 1.31 alkaline phosphatase 81 calcium normal at 8.8 CBC shows a white count of 12.38 hemoglobin 12.9 hematocrit 39.8 and platelet count 349,000. Absolute neutrophil count is 9.9 Assessment/plan: Alin is tolerating the combined treatment reasonably well and is fine today for treatment. He is having a bit more nausea than I like to see and we can arrange for him to have both Aloxi and dexamethasone repeated on Sunday which should help. Hopefully he will get his oral medications from the [place] and they will prove adequate to control his nausea during the week. His creatinine is about the same so no dose adjustments are necessary. He is not having any esophageal symptoms with the current time and his bowel function has been fine. We will arrange for the additional antiemetics IV on Sunday and a return appointment for week 3 treatment in a week. He will let us know if there is issues or problems in the interim. documented in this encounter Miscellaneous Notes Addendum Note - Cassi Martinez RN - 07/19/2017 11:14 AM EST Addended by: CASSI MARTINEZ on: 07/19/2017 11:14 AM Modules accepted: Orders documented in this encounter Plan of Treatment Upcoming Encounters Date Type Specialty Care Team Description 01/19/2022 Office Visit Hematology and Oncology Loan Burton, NOLAN [facility] HEMATOLOGY/[place] [address] 01/19/2022 Infusion Hematology and Oncology Canc eled (F-ARIA CANCEL) 01/25/2022 Hospital Gastroenterology Jose Clark MD [facility] [place] [address] 01/25/2022 Surgery Gastroenterology Jose Clark UPPE R GI R, MD ENDOSCOPY [facility] [place] [address] 01/26/2022 Office Visit Hematology and Oncology Fabian Cameron MD [facility] HEMATOLOGY/[place] [address] Loan Burton, NOLAN [facility] HEMATOLOGY/[place] [address] 01/26/2022 Infusion Hematology and Oncology 02/02/2022 Office Visit Hematology and Oncology Rakesh, Fabian, MD [facility] HEMATOLOGY/[place] [address] 02/02/2022 Infusion Hematology and Oncology 02/22/2022 Telephone Hematology and Oncology Siena Lloyd RD [facility] DRIVE [place] [address] Scheduled Procedures Name Priority Associated Diagnoses Date/Time EGD, UPPER GI ENDOSCOPY EGD with stent vs 2021 12:00 PM EDT cryotherapy. documented as of this encounter Visit Diagnoses Diagnosis Primary lung adenocarcinoma, right documented in this encounter Care Teams Storekeeper Helper Relationship Specialty Start Date End Date Farzaneh Winkler, GUN FERTILIZER PCP - General General Internal Medicine 06/05/[address] [place] [address] documented as of this encounter
--- OUTSIDE RECORDS SUMMARY | 2022-01-19 07:40 | XMS_ITS | Encounter Summary ---
:1950 Author Organization [facility] [place] [address] Care Team Providers Name Role Phone Farzaneh Winkler Daria FRANCISCO Primary Care Provider Encounter Details Date Type Department Care Team Description 07/26/2017 Clinical Support Hematology/Oncology at Adrian Gold [facility] [address] [place] [address] Social History Tobacco Use Types [...] encounter Progress Notes Adrian Gold RD - 07/26/2017 2:30 PM EST [facility] Initial Dietitian Assessment Seen By: Katt Gold, , RD, CHARTERED ACCOUNTANT, LD Referred by: BROOKE Miranda Reason for [...] Wt: Wt Readings from Last 3 Encounters: 07/26/17 (!) 136.4 kg (300 lb 9.6 oz) 07/25/17 134.4 kg (296 lb 3.2 oz) 07/19/17 (!) 139.3 kg (307 lb) Wt Hx: UBW: % UBW: IBW: +/- 10% % IBW: BMI: 42 ___ Edema ___ Ascites ___Muscle wasting Calorie needs: Protein needs: Fluid needs: Food Intake: Am: bites of left overs: creamed tuna on rice. Noon: Pm: Snacks: used to eat chips and dips, but now laying off that. Fluids: mostly diet gingerale or coke with 48-60 oz water/d Supplements/Frequency: ___ Ensure/Plus ___ Boost/Plus ___ CIB ___ Other: Teas, vitamins, or other nutritional supplements: one/d for men Food allergies or avoidances: doesn't like avocado Appetite: likes spicy stuff, but gets heartburn Nausea: + Vomiting: denies Chewing: deines Dentition: Swallowing: denies Taste Changes: Too good Bowels: could have had a GI bug a week or so ago. Had diarrhea. Food availability/purchasing, meal planning and preparation: He usually did, and does more now. Depression: Social Support: Economic Issues: Physical Activity: plays solitaire and poker Level of Motivation/Readiness to Change: Nutrition Diagnosis: [facility]. We discussed the concept of food as [...] Monitoring and Evaluation: Will follow up with Ramakrishna Meek in one week (s) to re-evaluate. I have provided him with my card and contact information should he have any questions in the mean time. Thank you for this consult. documented in this encounter Plan of Treatment Upcoming Encounters Date Type Specialty Care Team Description 01/19/2022 Office Visit Hematology and Oncology Loan Burton, NOLAN [facility] HEMATOLOGY/[place] [address] 01/19/2022 Infusion Hematology and Oncology Canc eled (F-ARIA CANCEL) 01/25/2022 Hospital Gastroenterology Jose Clark MD [facility] [place] [address] 01/25/2022 Surgery Gastroenterology Jose Clark, LOLA Yates MD ENDOSCOPY [facility] [place] [address] 01/26/2022 Office Visit Hematology and Oncology Fabian Cameron MD [facility] HEMATOLOGY/[place] [address] Loan Burton, NOLAN [facility] HEMATOLOGY/[place] [address] 01/26/2022 Infusion Hematology and Oncology 02/02/2022 Office Visit Hematology and Oncology Fabian Cameron MD [facility] HEMATOLOGY/[place] [address] 02/02/2022 Infusion Hematology and Oncology 02/22/2022 Telephone Hematology and Oncology Siena Lloyd RD [facility] DRIVE H[place]ATOLOGY [place] [address] Scheduled Procedures Name Priority Associated Diagnoses Date/Time EGD, UPPER GI ENDOSCOPY EGD with stent vs 2021 12:00 PM EDT cryotherapy. documented as of this encounter Visit Diagnoses Diagnosis Dietary counseling Dietary surveillance and counseling documented in this encounter Care Teams Country Printer Apprentice Relationship Specialty Start Date End Date Farzaneh Winkler, NOLAN PCP - General General Internal Medicine 06/05/[address] [place] [address] documented as of this encounter
--- OUTSIDE RECORDS SUMMARY | 2022-01-19 07:40 | XMS_ITS | Encounter Summary ---
:1950 Author Organization [facility] [place] [address] Care Team Providers Name Role Phone Farzaneh Winkler Daria FRNACISCO Primary Care Provider Encounter Details Date Type Department Care Team Description 08/02/2017 Office Visit Radiation Oncology at Alden Ramos A denocarcinoma, lung, [facility] [address] [place], [place] RADIATION ONCOL OGY [address] [place], [place] [phone] (Wo rk) Social History Tobacco Use Types [...] encounter Progress Notes Alden Ramos MD - 08/02/2017 2:30 PM EST Images from the original note were not included. RADIATION ONCOLOGY - Weekly On Treatment Visit Note 08/02/17 Alden Ramos MD, [place] Radiation Oncology [facility] [phone] (paging lumber carrier operator) PATIENT IDENTIFICATION NAME: Alin Meek DATE OF : 1950 DIAGNOSIS: Primary lung adenocarcinoma, right Staging form: Lung, AJCC 8th Edition - Clinical: cT2, cN2, cM0 - Signed by Alden Ramos MD on 07/02/2017 CONCURRENT THERAPY: Carbo/ Taxol (from Dr. Bishop) INTENT OF THERAPY: Definitive (Curative) RADIATION TREATMENT DETAILS: Treatment Site RUL / mediastinum Prescribed Dose 60 Gy in 30 fractions Current Dose: 32 Gy in 16 fractions Gluer Machine Operator Newsome from Current Plan (minimum 60 Gy isodose volume shown): INTERVAL HISTORY Subjective: General - Overall continues to feel well. Has had low BP's, anti-htn meds are being held. Resp - Mild esophagitis. He has BMX / carafate which he finds helpful. Otherwise no new cough / SOB.Ongoing CHENG. GI - Diarrhea has resolved. Pain: Pain score today is 0/10. Nutrition: Weight at start of therapy was 307 lbs --> 307lbs today. Eating normal diet. Medications 08/02/17 1521 Medication Sig Taking? loperamide (IMODIUM A-D) 2 mg Capsule Take 2 mg by mouth 4 times daily as needed for Diarrhea. Yes prochlorperazine (COMPAZINE) 10 mg Tablet Take 1 tablet by mouth every 6 hours as needed for Nausea.Yes omeprazole (PRILOSEC) 40 mg Capsule, Delayed Release(E.C.) Take daily, 1/2 hour prior to breakfast on an empty stomach. Yes amLODIPine (NORVASC) 10 mg Tablet Take 10 mg by mouth daily. Yes BUDESONIDE/FORMOTEROL FUMARATE (SYMBICORT INHL) Inhale into the lungs 2 times daily. Yes ALBUTEROL INHL Inhale into the lungs every 4 hours as needed. Yes SERTRALINE HCL (ZOLOFT ORAL) Take by mouth daily. diphenhydrAMINE/aluminum-magnesium hydroxide with simethicone/lidocaine (BMX) oral suspension Swallow 10 mls every 3h as needed for esophageal pain. Patient not taking: Reported on 07/12/2017 sucralfate (CARAFATE) 1 gram Tablet Dissolve in 5ml of water and swallow for esophageal pain. You can take this every 3hours as needed. Patient not taking: Reported on 07/25/2017 losartan (COZAAR) 25 mg Tablet Take 25 mg by mouth daily. chlorthalidone (HYGROTEN) 25 mg Tablet Take 25 mg by mouth daily. triamcinolone (KENALOG) 0.1 % Cream Apply topically 2 times daily as needed. Interval Imaging / Laboratory Studies: I have personally reviewed this patient's interval portal imaging to confirm accurate positioning and alignment which matches the patient's original approved treatment planning images. EXAM: Vitals 08/02/2017 SYSTOLIC 135 DIASTOLIC 73 BP Location PULSE 76 TEMPERATURE 97.8 RESPIRATIONS 20 Height (Latvian) 5' 10.866 Height (Metric) 180 cm Weight (Latvian) 297 lbs Weight (Metric) 134.718 kg BODY MASS INDEX 41.58 kg/m2 Constitutional: he appears well-developed and well-nourished. [...] [facility] HEMATOLOGY/[place] [address] 01/19/2022 Infusion Hematology and Oncology Canc eled (F-ARIA CANCEL) 01/25/2022 Hospital Gastroenterology Jose Clark MD [facility] [place] [address] 01/25/2022 Surgery Gastroenterology Jose Clark UPPE R GI R, MD ENDOSCOPY [facility] [place]STR[place] [address] 01/26/2022 Office Visit Hematology and Oncology Fabian Cameron MD [facility] HEMATOLOGY/[place] [address] Loan Burton APRN [facility] HEMATOLOGY/[place] [address] 01/26/2022 Infusion Hematology and Oncology 02/02/2022 Office Visit Hematology and Oncology Fabian Cameron MD [facility] HEMATOLOGY/[place] [address] 02/02/2022 Infusion Hematology and Oncology 02/22/2022 Telephone Hematology and Oncology Siena Lloyd RD [facility] DRIVE [place] [address] Scheduled Procedures Name Priority Associated Diagnoses Date/Time EGD, UPPER GI ENDOSCOPY EGD with stent vs 2021 12:00 PM EDT cryotherapy. documented as of this encounter Visit Diagnoses Diagnosis Adenocarcinoma, lung, right documented in this encounter Care Teams Government Employee Relationship Specialty Start Date End Date Farzaneh Winkler, FOREIGN SERVICE TEACHER PCP - General General Internal Medicine 06/05/[address] [place] [address] documented as of this encounter
--- OUTSIDE RECORDS SUMMARY | 2022-01-19 07:40 | XMS_ITS | Encounter Summary ---
:1950 Author Organization [place] [address] Care Team Providers Name Role Phone Farzaneh Winkler APRN Primary Care Provider Reason for Visit Reason Comments Lung Cancer Encounter Details Date Type Department Care Team Description 08/09/2017 Office Visit Hematology/Oncology Jonathan Bishop, [facility] lung at [facility] adenocarcinoma, right [address] 1080 [facility] [place] [address] [phone] (Wo rk) Social History Tobacco Use Types [...] Sign Reading Time Taken Comments Blood Pressure 113/62 08/09/2017 10:39 AM EST Pulse 54 08/09/2017 10:39 AM EST Temperature 36.5 ??C (97.7 ??F) 08/09/2017 10:39 AM EST Respiratory Rate 18 08/09/2017 10:39 AM EST Oxygen Saturation 98% 08/09/2017 10:39 AM EST Inhaled Oxygen Concentration - - Weight 135.2 kg (298 lb) 08/09/2017 10:39 AM EST Height 180 cm (5' 10.87) 08/09/2017 10:39 AM EST sandeep stephenson Body Mass Index 41.72 08/09/2017 10:39 AM EST documented in this encounter Progress Notes Jonathan Bishop MD - 08/09/2017 10:30 AM EST Images from the original note were not included. 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 He is receiving concurrent treatment with chemotherapy and radiation therapy. His clinical course is complicated by some renal insufficiency which has waxed and waned significantly during treatment. Last week with improving renal function we adjusted upwards his carboplatin dose. He tolerated it well but his blood counts do show a significant thrombocytopenia today. He is not having significant esophagitis and is tolerating the treatment well with no significant nausea or vomiting or neuropathy or other symptoms. We also spent time today talking about the new indications for durvalumab post combined chemoradiation therapy in patients who have responded tocombined treatment. This therapy is particularly attractive in Alin because of his high PDL 1 positivity. He would be willing to consider that. Past medical history and social history are [...] [employer] for 8 months ??? 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 Smoking [...] Neurological: Negative. Hematological: Negative for adenopathy. BP 113/62 (Patient Position: Sitting) Pulse 54 Temp 36.5 ??C (97.7 ??F) (Oral) Resp 18 Ht 180 cm (5' 10.87) Comment: copied Wt 135.2 kg (298 lb) SpO2 98% BMI 41.72 kg/m2 Head: Normocephalic, without obvious abnormality, atraumatic [...] Genetics RESULTS CONSULTATION CASE Outside case labeled [id number] ([id number]), [place]/28/2017. [facility] [place]: [id number] Report to: [facility] Department of Pathology [address] [place] [address] ??[phone] , , Ext [phone] Submitted for molecular testing only. ??This case has not been reviewed in ??its ??entirety. SPECIMEN ANALYZED: ?? [id number] (outside [id number]) Analysis: ??Examination of DNA extracted from formalin-fixed paraffin-embedded tumor ??tissue for somatic mutation analysis. Results: ??The following gene variants were identified in the submitted tissue: CLINICALLY ACTIONABLE VARIANTS: BRAF: ??NEGATIVE EGFR: ??NEGATIVE KRAS: ??MUTATION c.35G> T p.G12V Exon 2 PIK3CA: ??NEGATIVE OTHER DETECTED VARIANTS: N/A Interpretation: ?? After review of the pathology report and slides, the specimen ( [id number]) was selected for mutation analysis from [...] stained slide and 2 unstained slide(s) labeled [id number] ([id number]). Submitted for PD-L1 testing only. ??This case [...] (TAXOTERE) IV 20 mg/m2/dose = 53 mg Blood counts today show white count of 4.33 absolute neutrophil count of 3.53 hemoglobin of 11 hematocrit 33.8 platelets though are 89,000. CMP shows normal electrolytes his creatinine is now down to 1.05 but is fluctuated between the current level and 1.85. Calcium is 9.0 ALP is 95 liver tests otherwise normal calcium 9.0 Assessment/plan: Alin his counts are too low today for treatment. He is going to be treated through August 22 and inthat regard I would favor simply holding today's treatment to allow his platelets to recover and then try to get in cycle 6 during the final week of radiation therapy. We will leave the dosing word is especially in view of his improved creatinine. I think perhaps the Frontier formula may be over estimating his creatinine clearance a bit and that is why we are seeing the thrombocytopenia. As noted we did discuss continuing on with durvalumab every 2 weeks after the completion of chemoradiation therapy. I have asked radiation oncology to comment on whether or not his treatment planning feels are showing any response as the drug is indicated for patients that have had a response to combined therapy. Almost all patients though do respond with only a rare minority of patients progressing on combined treatment. As noted with a 90% positive PDL 1 tumor a checkpoint inhibitor is particularly attractive to consider in an adjuvant setting. I went over some of the potential side effects of the medication and potential benefits as well. He is inclined to consider that. Follow-up is arranged for 1 week withlab. documented in this encounter Plan of Treatment Upcoming Encounters Date Type Specialty Care Team Description 01/19/2022 Office Visit Hematology and Oncology Loan Burton, NOLAN [facility] HEMATOLOGY/[place] [address] 01/19/2022 Infusion Hematology and Oncology Canc eled (F-ARIA CANCEL) 01/25/2022 Hospital Gastroenterology Jose Clark MD [facility] [place] [address] 01/25/2022 Surgery Gastroenterology Jose Clark EGD, LOLA Yates MD ENDOSCOPY [facility] [place] [address] 01/26/2022 Office Visit Hematology and Oncology Fabian Cameron MD [facility] DR HEMATOLOGY/[place] [address] Loan Burton APRN [facility] HEMATOLOGY/[place] [address] 01/26/2022 Infusion Hematology and Oncology 02/02/2022 Office Visit Hematology and Oncology Fabian Cameron MD [facility] HEMATOLOGY/[place] [address] 02/02/2022 Infusion Hematology and Oncology 02/22/2022 Telephone Hematology and Oncology Siena Lloyd RD [facility] DRIVE H[place]ATOLOGY [place] [address] Scheduled Procedures Name Priority Associated Diagnoses Date/Time EGD, UPPER GI ENDOSCOPY EGD with stent vs 2021 12:00 PM EDT cryotherapy. documented as of this encounter Visit Diagnoses Diagnosis Primary lung adenocarcinoma, right documented in this encounter Care Teams Senior Internal Auditor Relationship Specialty Start Date End Date Farzaneh Winkler, POLISHER HAND PCP - General General Internal Medicine 06/05/[address] [place] [phone] documented as of this encounter
--- OUTSIDE RECORDS SUMMARY | 2022-01-19 07:40 | XMS_ITS | Encounter Summary ---
:1950 Author Organization [facility] [place] [address] Care Team Providers Name Role Phone Farzaneh Winkler Daria FRANCISCO Primary Care Provider Encounter Details Date Type Department Care Team Description 07/19/2017 Office Visit Radiation Oncology at Alden Ramos A denocarcinoma, lung, [facility] [address] [place] RADIATION ONCOL OGY [address] [place], [place] [phone] (Wo rk) Social History Tobacco Use Types [...] encounter Progress Notes Alden Ramos MD - 07/19/2017 3:00 PM EST Images from the original note were not included. RADIATION ONCOLOGY - Weekly On Treatment Visit Note 07/19/17 Alden Ramos MD, MS Radiation Oncology [facility] [phone] (paging head stock operator) PATIENT IDENTIFICATION NAME: Alin Meek DATE OF : 1950 DIAGNOSIS: Primary lung adenocarcinoma, right Staging form: Lung, AJCC 8th Edition - Clinical: cT2, cN2, cM0 - Signed by Alden Ramos MD on 07/02/2017 CONCURRENT THERAPY: Carbo/ Taxol (from Dr. Bishop) INTENT OF THERAPY: Definitive (Curative) RADIATION TREATMENT DETAILS: Treatment Site RUL / mediastinum Prescribed Dose 60 Gy in 30 fractions Current Dose: 14 Gy in 7 fractions [facility] [place] from Current Plan (minimum 60 Gy isodose volume shown): INTERVAL HISTORY Subjective: General - Overall feels fair. Resp - Mild esophagitis. He has BMX / carafate which he finds helpful. Otherwise no new cough / SOB.Ongoing CHENG. Pain: Pain score today is 0/10. Nutrition: Weight at start of therapy was 307 lbs --> 307lbs today. Eating normal diet. Medications 07/19/17 1512 Medication Sig Taking? prochlorperazine (COMPAZINE) 10 mg Tablet Take 1 [...] can take this every 3hours as needed. losartan (COZAAR) 25 mg Tablet Take 25 [...] original approved treatment planning images. EXAM: Vitals 07/19/2017 SYSTOLIC 114 DIASTOLIC 84 BP Location PULSE 89 TEMPERATURE 98.1 RESPIRATIONS 18 Height (Scottish) 5' 10.866 Height (Metric) 180 cm Weight (Scottish) 307 lbs Weight (Metric) 139.254 kg BODY [...] Visit Hematology and Oncology Loan Burton, [facility] HEMATOLOGY/[place] [address] 01/19/2022 Infusion Hematology and Oncology Canc eled (F-ARIA CANCEL) 01/25/2022 Hospital Gastroenterology Jose Clark MD [facility] [place] [address] 01/25/2022 Surgery Gastroenterology Jose Clark UPPE R GI R, MD ENDOSCOPY [facility] [place] [address] 01/26/2022 Office Visit Hematology and Oncology Fabian Cameron MD [facility] HEMATOLOGY/[place] [address] Loan Burton APRN [facility] HEMATOLOGY/[place] [address] 01/26/2022 Infusion Hematology and Oncology 02/02/2022 Office Visit Hematology and Oncology Fabian Cameron MD [facility] HEMATOLOGY/[place] [address] 02/02/2022 Infusion Hematology and Oncology 02/22/2022 Telephone Hematology and Oncology Siena Lloyd, [facility] DRIVE [place]Y [place] [address] Scheduled Procedures Name Priority Associated Diagnoses Date/Time EGD, UPPER GI ENDOSCOPY EGD with stent vs 2021 12:00 PM EDT cryotherapy. documented as of this encounter Visit Diagnoses Diagnosis Adenocarcinoma, lung, right documented in this encounter Care Teams Sane Rn Relationship Specialty Start Date End Date Farzaneh Winkler, MALARIOLOGIST PCP - General General Internal Medicine 06/05/[address] [place] [phone] documented as of this encounter
--- OUTSIDE RECORDS SUMMARY | 2022-01-19 07:40 | XMS_ITS | Encounter Summary ---
:1950 Author Organization [facility] [place] [address] Care Team Providers Name Role Phone Peterson Farzanehrubio Huff APRN Primary Care Provider Reason for Visit Consultation (Routine) - Closed Specialty Diagnoses / Procedures Referred By Contact Refer red To Contact Radiation Oncology Diagnoses Adenocarcinoma, lung, right Alden Ramos MD [facility] Office Procedures Simulation for Radiation Therapy Planning [address] [place] [address] [place] [phone] Referral ID Status Reason Start Date Expiration Date Visits V isits Requested Authorized [id number] Closed Consult, 07/03/2017 07/03/2018 1 1 Test & Treat Encounter Details Date Type Department Care Team Description 07/04/2017 Ancillary Appointment Radiation Oncology at Lei Ramos [facility] [address] [place] [address] [place], [place] RADIATION ONCOL OGY [address] [place], [place] [phone] (Wo rk) Social History Tobacco Use Types [...] encounter Progress Notes Alden Ramos MD - 07/04/2017 1:00 PM EST Simulation Note for External Beam Radiation Treatment Planning [facility] Daniele Meek is a 66 y.o. year old male with Stage IIIA NSCLC who was simulated for definitive radiotherapy to the right lung, hilum and mediastinum today. No changes were made from the plan as documented in the original simulation order and instructions. Briefly, he was immobilized using a vacloc bag and prior to the scan oral and IV contrast (100ml @ 300mg/ml iohexol solution) were administered. A 2.5mm slice thickness CT scan of the patient's chest was then obtained. This scan was performed to delineate both target volumes and organs/structures at risk. These images will be used to create a customized treatment plan employing multileaf collimators and beams-eye view to treat the target to prescription dose while maximally sparing organs at risk, with the overall goal of maximizing the likelihood of a favorable disease response while minimizing the likelihood of any short term side effects or custodial complications of therapy. In addition, respiratory gating was used to determine the extent of target motion during the normal respiratory cycle. During the planning process, a determination will be made regarding whether an internal target volume (ITV) or gated plan will be necessary to treat this patient. I anticipate his prescription dose will be 60 Gy to the lung tumor and regional lymph nodes, delivered in daily 2 Gy fractions over the course of 6 weeks. Anticipate therapy to begin within the next 7-10 days. Furthermore, I anticipate this patient will require 3D conformal treatment planning as multiple conformal portals will be contructed to adequately cover the critical structures of interest (in this case, the tumor) with close margins that protect immediately adjacent sensitive structures (including his esophagus, normal lung, heart, skin and spinal cord). If dosimetric constraints for a safe and efficacious radiotherapy plan cannot be met using 3D conformal therapy, a IMRT or VMAT approach will be considered. The patient tolerated this procedure well, and was provided instructions with regard to upcoming appointments. Madina Hernandez RN - 07/04/2017 1:00 PM EST Radiation Oncology CT IV Contrast Simulation Nursing Note [place] Diagnosis: Lung ca IV Access site: Left forearm Performed by:Yao Martinez RN Gauge:20 Blood return:checked by RTT staff CT Simulation of: chest Pre-contrast qustionnaire completed prior to IV insertion : Simulation steam blocker assessed IV line patency prior to IV contrast dye : Time contrast administered: 1355 By: Gorge Mccarthy [facility] N Richard CISNEROS and Trixie Wall RN present for contrast injection and 5 minutes after: Volume of Contrast injected by radiation therpaist: 100ml of Omnipaque 300mg/ml Volume of Contrast wasted: none Procedure done in [facility] Radiation Oncology Simulator Room. Reaction:[ ] Yes : explain reaction [x ] none: No adverse reaction / Patient tolerated procedure well Signs and symptoms or infiltration/extravastion: None Time IV discontinued: 1405 Patient teaching: Patient instructed to drink 2 liters of water over the next 48 hours post IV contrast simulation. Patient verbalized understanding of these instructions. Madina Hernandez RN - 07/04/2017 1:00 PM EST Radiation Oncology Simulation Note Mr Humphrey is here for radiation planning , undergoing a simulation to the chest For lung cancer treatment . Usual radiation oncology routines and purpose of on treatment visits were explained. Jeans cream provided and instructions for use reviewed Anticipatory Guidance: Dr Ramos ordered omeprazole, BMX and carafate in anticipation of radiation induced esophagitis and giving [facility] time to [facility] and [facility] to [facility]. [facility]: this note and printed prescriptions. Barriers to Treatment/ Compliance issues identified: none Patient confirms that he has no difficulties lying flat. pre- medication plan made: n/a Referrals: willow worker on day per routine. IFER documented in this encounter Plan of Treatment Upcoming Encounters Date Type Specialty Care Team Description 01/19/2022 Office Visit Hematology and Oncology Loan Burton, [facility] HEMATOLOGY/[place] [address] 01/19/2022 Infusion Hematology and Oncology Can eled (F-ARIA CANCEL) 01/25/2022 Hospital Gastroenterology Jose Clark MD [facility] [place] [address] 01/25/2022 Surgery Gastroenterology Jose Clark UPPE R GI R, MD ENDOSCOPY [facility] [place] [address] 01/26/2022 Office Visit Hematology and Oncology Fabian Cameron MD [facility] HEMATOLOGY/[place] [address] Loan Burton APRN [facility] HEMATOLOGY/[place] [address] 01/26/2022 Infusion Hematology and Oncology 02/02/2022 Office Visit Hematology and Oncology Fabian Cameron MD [facility] HEMATOLOGY/[place] [address] 02/02/2022 Infusion Hematology and Oncology 02/22/2022 Telephone Hematology and Oncology Siena Lloyd RD [facility] DRIVE H[place]ATOLOGY [place] [address] Scheduled Procedures Name Priority Associated Diagnoses Date/Time EGD, UPPER GI ENDOSCOPY EGD with stent vs 2021 12:00 PM EDT cryotherapy. documented as of this encounter Procedures Procedure Name Priority Date/Time Associated Diagnosis Comme nts LAB SCAN 06/29/2017 12:00 AM Results for this EST procedure are i n the results section . documented in this encounter Results SCAN DOC: LAB (06/29/2017 12:00 AM EST) Narrative 06/29/2017 12:00 AM EST This result has an attachment that is no t available. Ordered by an unspecified provider. Scanning Provider MEDIA MGR SCAN EXT ORDR/RSLT documented in this encounter Visit Diagnoses Not on filedocumented in this encounter Care Teams Lime Burner Relationship Specialty Start Date End Date Farzaneh Winkler, REINFORCED IRONWORKER PCP - General General Internal Medicine 06/05/[address] [place] [phone] documented as of this encounter
--- OUTSIDE RECORDS SUMMARY | 2022-01-19 07:40 | XMS_ITS | Encounter Summary ---
:1950 Author Organization [facility] [place] [address] Care Team Providers Name Role Phone Farzaneh Winkler APRN Primary Care Provider Reason for Referral Consultation (Routine) - Specialty Diagnoses / Procedures Referred By Contact Refer red To Contact General Surgery Diagnoses Primary lung adenocarcinoma, right Jonathan Bishop MD [address] Campbell [id number] [place] [phone] Phone: Fax: Referral ID Status Reason Start Date Expiration Date Visits V isits Requested Authorized [id number] Consult, 07/10/2017 01/06/2018 1 1 Test & Treat Reason for Visit Reason Comments Lung Cancer Encounter Details Date Type Department Care Team Description 07/10/2017 Office Visit Hematology/Oncology Jonathan Bishop Pri meenu lung at [facility] adenocarcinoma, right [address] [place] [phone] (Wo rk) Social History Tobacco Use Types [...] Sign Reading Time Taken Comments Blood Pressure 156/78 07/10/2017 3:30 PM EST Pulse 105 07/10/2017 3:30 PM EST Temperature 36.3 ??C (97.3 ??F) 07/10/2017 3:30 PM EST Respiratory Rate 22 07/10/2017 3:30 PM EST Oxygen Saturation 99% 07/10/2017 3:30 PM EST Inhaled Oxygen Concentration - - Weight 142.9 kg (315 lb) 07/10/2017 3:30 PM EST Height - - Body Mass Index 44.1 07/02/2017 2:03 PM EST documented in this encounter Progress Notes Jonathan Bishop MD - 07/10/2017 3:30 PM EST Images from the original note were not included. Diagnosis: Stage IIIa adenocarcinoma right upper lobe EGFR and ALK negative but PDL-1 90% positive Subjective: Alin comes in today to discuss concurrent chemoradiation therapy and the definitive treatment of his stage III lung cancer. He was evaluated [place] the general [place] at [place] [facility] and discussed at tumor board and felt that he was not a good candidate for surgical resection so recommendations were madefor concurrent therapy and attempt to cure this tumor. I had him come in today in anticipation of his first chemotherapy on to discuss what it involves to do chemotherapy teaching and answer any questions you might have in regards to that. Nursing feels he may need a port so we will tentatively set him up for that but he is hoping he will not need to have that done. I think he left today with a good understanding of things. We did do some chemotherapy teaching went over potential risks and side effects of weekly chemotherapy with carboplatinum and docetaxel. We will make sure he has some Compazine on hand as a as needed antiemetic and I told him we be using both Aloxi and Emend to help control the nausea both from the chemotherapy and from radiation therapy. We talked about potential esophagitis the particular side effects of each chemotherapy doing the possibility of an allergic reaction or rash or edema with the docetaxel. Most patients get by without having those problems. We talkedabout fatigue with treatment and also discussed the fact that the main treatment is the radiation therapy with chemotherapy being added only to improve the cure rates with radiation. We also discussed follow-up. Frequently CAT scans or PET scans do not completely go back to normal post therapy so it can sometimes take a while to get comfortable that residual findings on scanning do not represent cancer. Most patients if they get out 2 years are probably cured if they do not have a recurrence by then. Also spent some time talking about the fact that he has a PDL 1 positive tumor which makes the chance of second line therapy being effective higher but does not guarantee that and even in patients that have durable complete responses it is not certain at this point that that is a curative therapy. Inregards to that we tend to be as aggressive as possible and trying to cure this with upfront combined treatment. Past Medical History: Diagnosis Date ??? Adenocarcinoma, [...] [employer] for 8 months ??? 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 Smoking status: Former Smoker Packs/day: 2.00 Types: Cigarettes Start date: 1969 Quit date: 2015 ??? Smokeless tobacco: Former User Types: Chew Quit date: 1974 ??? Alcohol use No Comment: usd to drink heavily ( 12 pck/day) quit 2016 ??? Drug use: No ??? Sexual activity: [...] Genetics RESULTS CONSULTATION CASE Outside case labeled [id number] ([id number]), collection date 05/28/2017. [facility] Tracking #: [id number] Report to: [facility] Department of Pathology [address] [place] [address]., [place] ??[address] , , Ext [phone] Submitted for molecular testing only. ??This case has not been reviewed in ??its ??entirety. SPECIMEN ANALYZED: ?? [id number] (outside [place] [id number]) Analysis: ??Examination of DNA extracted from formalin-fixed paraffin-embedded tumor ??tissue for somatic mutation analysis. Results: ??The following gene variants were identified in the submitted tissue: CLINICALLY ACTIONABLE VARIANTS: BRAF: ??NEGATIVE EGFR: ??NEGATIVE KRAS: ??MUTATION c.35G> T p.G12V Exon 2 PIK3CA: ??NEGATIVE OTHER DETECTED VARIANTS: N/A Interpretation: ?? After review of the pathology report and slides, the specimen ([id number]) was selected for mutation analysis from [...] stained slide and 2 unstained slide(s) labeled [id number] ([id number]). Submitted for PD-L1 testing only. ??This case has not been reviewed in its ? entirety. Tumor Proportion Score (TPS): ? % Expression: 90% Interpretation Table: PD-L1 assay (22C3 pharmDX) for Keytruda (pembrolizumab) Tumor Proportion Score (TPS): ? <1% ?PD-L1 Negative ? >1% ? PD-L1 Expression ?? > 50% ? PD-L1 High Expression Patient's laboratory is reviewed from May 29. His creatinine was 1.2 at that time electrolytes normal. White count 12.3 hemoglobin 12.8 hematocrit 41.4 and platelet count 394 with an absolute neutrophil count of 8.5. Liver tests were otherwise normal with a ALP of 73 and normal transaminases. ASSESSMENT/PLAN: Alin has a stage 3a adenocarcinoma that is PD-L1 positive at 90%. Since he is not a surgical candidate consideration is being given to combined treatment with radiation therapy and chemotherapy withcarboplatinum and docetaxel given weekly. This can be a curative treatment and around 35-40% of patients and approaches the cure rate seen with patients who have surgery in this clinical situation. Alin would like to start his therapy and his radiation is going to begin tomorrow. We will make arrangements for his first chemotherapy on and then I will see him the following week with lab for week 2 of 6 to potentially 7 weekly treatments. Will check lab prior to each subsequent chemotherapy week 2 through 7. If he develops esophagitis will consider a combination of Carafate and simply thick which seems to prolong the action of the Carafate. Radiation oncology often will use lidocaine slurries in that situation. In view of the combined therapy will use both Aloxi and Emend to try and prevent any nausea with treatment and he will get premedication with Decadron Benadryl and Pepcid to tryand prevent any allergic reaction to the docetaxel. We will tentatively set him up for a port although if his IV chemotherapy goes well and he has better access than expected we can put that off. I think because of the potential for esophagitis which can result in dehydration and difficulty with venous access it makes most sense to consider report in this clinical situation. documented in this encounter Plan of Treatment Upcoming Encounters Date Type Specialty Care Team Description 01/19/2022 Office Visit Hematology and Oncology Loan Burton, N[facility] HEMATOLOGY/[place] [address] 01/19/2022 Infusion Hematology and Oncology Canc eled (F-ARIA CANCEL) 01/25/2022 Hospital Gastroenterology Jose Clark MD [facility] [place] [address] 01/25/2022 Surgery Gastroenterology Jose Clark UPPE R GI R, MD ENDOSCOPY [facility] [place] [address] 01/26/2022 Office Visit Hematology and Oncology Fabian Cameron MD [facility] DR HEMATOLOGY/[place] [address] Loan Burton APRN [facility] HEMATOLOGY/[place] [address] 01/26/2022 Infusion Hematology and Oncology 02/02/2022 Office Visit Hematology and Oncology Fabian Cameron MD [facility] HEMATOLOGY/[place] [address] 02/02/2022 Infusion Hematology and Oncology 02/22/2022 Telephone Hematology and Oncology Siena Lloyd RD [facility] [place] [address] Scheduled Procedures Name Priority Associated Diagnoses Date/Time EGD, UPPER GI ENDOSCOPY EGD with stent vs 2021 12:00 PM EDT cryotherapy. Scheduled Referrals Name Type Priority Associated Diagnoses Order S chedule Referral to Outpatient Referral Routine Primary lung Ordered: General Surgery adenocarcinoma, 8 right documented as of this encounter Visit Diagnoses Diagnosis Primary lung adenocarcinoma, right documented in this encounter Care Teams Adjunct Physical Education Instructor Relationship Specialty Start Date End Date Farzaneh Winkler, ECHO TECHNICIAN PCP - General General Internal Medicine 06/05/[address] [place] [phone] documented as of this encounter
--- OUTSIDE RECORDS SUMMARY | 2022-01-19 07:40 | XMS_ITS | Encounter Summary ---
:1950 Author Organization [facility] [place] [address] Care Team Providers Name Role Phone Farzaneh Winkler APRN Primary Care Provider Encounter Details Date Type Department Care Team Description 06/21/2017 Telephone Hematology/Oncology at [facility] Kaylene Medina [address] [place] [phone] Social History Tobacco Use Types Packs/Day Years Used Date Never Assessed Sex Assigned at Date Recorded Not on file documented as of this encounter Miscellaneous Notes Telephone Encounter - Kaylene Medina - 06/21/2017 10:31 AM EST Spoke with Alin re his new patient appts on 07/02. He was okay with those appts. documented in this encounter Plan of Treatment Upcoming Encounters Date Type Specialty Care Team Description 01/19/2022 Office Visit Hematology and Oncology Loan Burton APRN [facility] HEMATOLOGY/[place] [address] 01/19/2022 Infusion Hematology and Oncology Canc eled (F-ARIA CANCEL) 01/25/2022 Hospital Gastroenterology Jose Clark MD [facility] [place] [address] 01/25/2022 Surgery Gastroenterology Jose Clark UPPE R GI R, MD ENDOSCOPY [facility] [place] [address] 01/26/2022 Office Visit Hematology and Oncology Fabian Cameron MD [facility] HEMATOLOGY/[place] [address] Loan Burton RADIO ARTIST [facility] HEMATOLOGY/[place] [address] 01/26/2022 Infusion Hematology and Oncology 02/02/2022 Office Visit Hematology and Oncology Fabian Cameron MD [facility] HEMATOLOGY/[place] [address] 02/02/2022 Infusion Hematology and Oncology 02/22/2022 Telephone Hematology and Oncology Siena Lloyd RD [facility] DRIVE [place] [address] Scheduled Procedures Name Priority Associated Diagnoses Date/Time EGD, UPPER GI ENDOSCOPY EGD with stent vs 2021 12:00 PM EDT cryotherapy. documented as of this encounter Visit Diagnoses Not on filedocumented in this encounter Care Teams Vocational Rehabilitation Technician Relationship Specialty Start Date End Date Farzaneh Winkler, RADIO ARTIST PCP - General General Internal Medicine 06/05/[address] [place] [phone] documented as of this encounter
--- OUTSIDE RECORDS SUMMARY | 2022-01-19 07:40 | XMS_ITS | Encounter Summary ---
:1950 Author Organization [place] [place] [address] Care Team Providers Name Role Phone PetersonRamónrubio Huff APRN Primary Care Provider Encounter Details Date Type Department Care Team Description 06/08/2017 Orders Only [place] [facility] [place] [address] Social History Tobacco Use Types Packs/Day Years Used Date Never Assessed Sex Assigned at Date Recorded Not on file documented as of this encounter Plan of Treatment Upcoming Encounters Date Type Specialty Care Team Description 01/19/2022 Office Visit Hematology and Oncology Loan Burton APRN [facility] HEMATOLOGY/[place] [address] 01/19/2022 Infusion Hematology and Oncology Canc eled (F-ARIA CANCEL) 01/25/2022 Hospital Gastroenterology Jose Clark MD [facility] [place] [address] 01/25/2022 Surgery Gastroenterology Jose Clark UPPE R GI R, MD ENDOSCOPY [facility] [place] [address] 01/26/2022 Office Visit Hematology and Oncology Fabian Cameron MD [facility] HEMATOLOGY/[place] [address] Loan Burton APRN [facility] HEMATOLOGY/[place] [address] 01/26/2022 Infusion Hematology and Oncology 02/02/2022 Office Visit Hematology and Oncology Fabian Cameron MD [facility] HEMATOLOGY/[place] [address] 02/02/2022 Infusion Hematology and Oncology 02/22/2022 Telephone Hematology and Oncology Siena Lloyd RD [facility] DRIVE H[place]OLOG[place] [address] Scheduled Procedures Name Priority Associated Diagnoses Date/Time EGD, UPPER GI ENDOSCOPY EGD with stent vs 2021 12:00 PM EDT cryotherapy. documented as of this encounter Visit Diagnoses Diagnosis Lung mass Swelling, mass, or lump in chest documented in this encounter Care Teams Mortgage Loan Officer Originator Relationship Specialty Start Date End Date Farzaneh Winkler APRN PCP - General General Internal Medicine 06/05/[address] [place] [id number] documented as of this encounter
--- OUTSIDE RECORDS SUMMARY | 2022-01-19 07:40 | XMS_ITS | Encounter Summary ---
:1950 Author Organization [facility] [place] [address] Care Team Providers Name Role Phone Farzaneh Winkler APRN Primary Care Provider Reason for Visit Reason Comments Lung Cancer Encounter Details Date Type Department Care Team Description 08/16/2017 Office Visit Hematology/Oncology Jonathan Bishop, [facility] lung at [facility] adenocarcinoma, right [address] [facility] [place] [phone] (Wo rk) Social History Tobacco Use Types [...] Sign Reading Time Taken Comments Blood Pressure 114/66 08/16/2017 10:28 AM EST Pulse 112 08/16/2017 10:28 AM EST Temperature 37.6 ??C (99.7 ??F) 08/16/2017 10:28 AM EST Respiratory Rate 20 08/16/2017 10:28 AM EST Oxygen Saturation 98% 08/16/2017 10:28 AM EST Inhaled Oxygen Concentration - - Weight 132.9 kg (293 lb) 08/16/2017 10:28 AM EST Height 180 cm (5' 10.87) 08/16/2017 10:28 AM EST sandeep stephenson Body Mass Index 41.02 08/16/2017 10:28 AM EST documented in this encounter Progress Notes Jonathan Bisohp MD - 08/16/2017 10:30 AM EST Images from the original note were not included. Diagnosis: Stage IIIa adenocarcinoma right upper lobe EGFR and ALK negative but PDL-1 90% positive Subjective: Alin comes in today for consideration of 1/5 weekly treatment with carboplatin and docetaxel being given concurrent with radiation therapy and the definitive treatment of his lung cancer. He is coming down with a cold and notes a runny nose this morning but not much cough. He is having minimal discomfort swallowing. His radiation therapy stopped next week so we talked about giving him his sixth and final dose of chemotherapy next Sunday. He is fine with that. Additionally there is a new study showing patients that have responded to chemo therapy and radiation therapy have a better cure rate jess more durable response even when not cured by the addition of Atezolizumab. Considering Alin is 90% PDL 1 positive it makes very good sense to consider that in him. He is fine with doing that. Past medical history and social history [...] [employer] 8 months ??? 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 Hematological: Negative for adenopathy. BP 114/66 (Patient Position: Sitting) Pulse (!) 112 Temp 37.6 ??C (99.7 ??F) (Temporal) Resp 20 Ht 180 cm (5' 10.87) Comment: copied Wt 132.9 kg (293 lb) SpO2 98% BMI 41.02 kg/m2 Head: Normocephalic, without obvious [...] Genetics RESULTS CONSULTATION CASE Outside case labeled [id number] ([id number]), collection date 05/28/2017. [facility] [place] Tracking #: [id number] Report to: [facility] Department of Pathology [address] [place] [address] ??[id number] , , Ext [phone] Submitted for molecular testing only. ??This case has not been reviewed in ??its ??entirety. SPECIMEN ANALYZED: ?? [id number] ([id number]) Analysis: ??Examination of DNA extracted from formalin-fixed paraffin-embedded tumor ??tissue for somatic mutation analysis. Results: ??The following gene variants were identified in the submitted tissue: CLINICALLY ACTIONABLE VARIANTS: BRAF: ??NEGATIVE EGFR: ??NEGATIVE KRAS: ??MUTATION c.35G> T p.G12V Exon 2 PIK3CA: ??NEGATIVE OTHER DETECTED VARIANTS: N/A Interpretation: ?? After review of the pathology report and slides, the specimen ( [id number]) was selected for mutation analysis from [...] stained slide and 2 unstained slide(s) labeled [id number] ([id number]). Submitted for PD-L1 testing only. ??This case [...] mg/m2/dose = 53 mg Review of his blood counts today show his platelets have rebounded to 187 hemoglobin is 3.5 to hematocrit 10.5 hematocrit 32.3 absolute neutrophil count 2.78. CMP shows normal electrolytes random glucose of 140 a creatinine of 1.24 alkaline phosphatase of 112 and a calcium of 8.9 Assessment/plan: Alin is fine today for week 5 carboplatinum and docetaxel being given concurrent with his radiation therapy. We will go ahead with that as planned. Even if platelets are a little bit below 100,000 for the last cycle of treatment next Sunday we will go ahead with it. The systemic chemotherapy part of the treatment will be then completed and will then after that arranged to check a chest x-ray to confirm response and plan on starting Atezolizumab every 3 weeks at that point in time. We will spend more time at next week's visit discussing risks and side effects of the checkpoint inhibitors. It certainly makes sense especially in this patient with a strongly PDL 1 positive tumor. 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 His esophagitis is doing reasonable with topical treatment. With his upper respiratory symptoms and a strong desire to keep him on track on his chemotherapywe will prophylactically start him on Cipro 500 mg twice daily for 1 week. He will call if there is i ssues or problems in the interim. documented in this encounter Plan of Treatment Upcoming Encounters Date Type Specialty Care Team Description 01/19/2022 Office Visit Hematology and Oncology Loan Burton, NOL[facility] HEMATOLOGY/[place] [address] 01/19/2022 Infusion Hematology and Oncology Canc eled (F-ARIA CANCEL) 01/25/2022 Hospital Gastroenterology Jose Clark MD [facility] DR GASTROENTEROLOG [place] [address] 01/25/2022 Surgery Gastroenterology Jose Clark EGD, LOLA Yates MD ENDOSCOPY [facility] DR GASTROENTEROLOG [place] [address] 01/26/2022 Office Visit Hematology and Oncology Fabian Cameron MD [facility] DR HEMATOLOGY/[place] [address] Loan Burton, HAIR DRESSER [facility] DR HEMATOLOGY/[place] [address] 01/26/2022 Infusion Hematology and Oncology 02/02/2022 Office Visit Hematology and Oncology Fabian Cameron MD [facility] DR HEMATOLOGY/[place] [address] 02/02/2022 Infusion Hematology and Oncology 02/22/2022 Telephone Hematology and Oncology Siena Lloyd, RD [facility] DRIVE HEMATOLOGY [place] [address] Scheduled Procedures Name Priority Associated Diagnoses Date/Time EGD, UPPER GI ENDOSCOPY EGD with stent vs 2021 12:00 PM EDT cryotherapy. documented as of this encounter Procedures Procedure Name Priority Date/Time Associated Comments Diagnosis LAB SCAN 08/02/2017 12:00 Results for this AM EST procedure are i n the results section. LAB SCAN 07/26/2017 12:00 Results for this AM EST procedure are i n the results section. IMPLANTABLE DEVICES 07/26/2017 12:00 Resu lts for this SCAN AM EST procedure are i n the results section. LAB SCAN 07/19/2017 12:00 Results for this AM EST procedure are i n the results section. IMPLANTABLE DEVICES 07/13/2017 12:00 Resu lts for this SCAN AM EST procedure are i n the results section. LAB SCAN 06/29/2017 12:00 Results for this AM EST procedure are i n the results section. documented in this encounter Results SCAN DOC: LAB (08/02/2017 12:00 AM EST) Narrative 08/02/2017 12:00 AM EST This result has an attachment that is no t available. Ordered by an unspecified provider. Scanning Provider MEDIA MGR SCAN EXT ORDR/RSLT SCAN DOC: IMPLANTABLE DEVICES (07/26/2017 12:00 AM EST) Narrative 07/26/2017 12:00 AM EST This result has an attachment that is no t available. Ordered by an unspecified provider. Scanning Provider MEDIA MGR SCAN EXT ORDR/RSLT SCAN DOC: LAB (07/26/2017 12:00 AM EST) Narrative 07/26/2017 12:00 AM EST This result has an attachment that is no t available. Ordered by an unspecified provider. Scanning Provider MEDIA MGR SCAN EXT ORDR/RSLT SCAN DOC: LAB (07/19/2017 12:00 AM EST) Narrative 07/19/2017 12:00 AM EST This result has an attachment that is no t available. Ordered by an unspecified provider. Scanning Provider MEDIA MGR SCAN EXT ORDR/RSLT SCAN DOC: IMPLANTABLE DEVICES (07/13/2017 12:00 AM EST) Narrative 07/13/2017 12:00 AM EST This result has an attachment that is no t available. Ordered by an unspecified provider. Scanning Provider MEDIA MGR SCAN EXT ORDR/RSLT SCAN DOC: LAB (06/29/2017 12:00 AM EST) Narrative 06/29/2017 12:00 AM EST This result has an attachment that is no t available. Ordered by an unspecified provider. Scanning Provider MEDIA MGR SCAN EXT ORDR/RSLT documented in this encounter Visit Diagnoses Diagnosis Primary lung adenocarcinoma, right documented in this encounter Care Teams Filling Mixer Relationship Specialty Start Date End Date Farzaneh Winkler, HAIR DRESSER PCP - General General Internal Medicine 06/05/[address] [place] [id number] documented as of this encounter
--- OUTSIDE RECORDS SUMMARY | 2022-01-19 07:40 | XMS_ITS | Encounter Summary ---
:1950 Author Organization [facility] [place] [address] Care Team Providers Name Role Phone Peterson Farzanehrubio Huff APRN Primary Care Provider Reason for Referral Consultation (Routine) - Closed Specialty Diagnoses / Procedures Referred By Contact Refer red To Contact Radiation Oncology Diagnoses Adenocarcinoma, lung, right Alden Ramos MD [facility] Rad Onc Office Procedures Simulation for Radiation Therapy Planning [address] [place] [address] [place] [phone] Referral ID Status Reason Start Date Expiration Date Visits V isits Requested Authorized [id number] Closed Consult, 07/03/2017 07/03/2018 1 1 Test & Treat Consultation (Routine) - Closed Specialty Diagnoses / Procedures Referred By Contact Refer red To Contact Hematology and Oncology Diagnoses Adenocarcinoma, lung, right Alden Ramos MD Shirai, Keisuke, MD [address] [place] [address] RADIATION ONCOLOGY [place] HEMATOLOGY/ONCO LOGY [address] [place] [address] Phone: Fax: Referral ID Status Reason Start Date Expiration Date Visits V isits Requested Authorized [id number] Closed Assume 07/02/2017 07/02/2018 1 1 Subset of Care Consultation (Routine) - Canceled Specialty Diagnoses / Procedures Referred By Contact Refer red To Contact Thoracic Surgery Diagnoses Adenocarcinoma, lung, right Alden Ramos MD [facility] Thoracic Surg [address] [place] [address] [place], [place] [address] [place] [phone] Fax: Referral ID Status Reason Start Date Expiration Date Visits V isits Requested Authorized [id number] Canceled Consult, 07/02/2017 07/02/2018 1 1 Test & Treat Reason for Visit Consultation (Routine) - Closed Specialty Diagnoses / Procedures Referred By Contact Refer red To Contact Radiation Oncology Diagnoses Malignant neoplasm of unspecified part of right bronchus or lung Farzaneh Winkler, Alden Ramos MD Procedures Treatment Options [address] [place] [address] [place] [address] Phone: Fax: Referral ID Status Reason Start Date Expiration Date Visits Requ ested Visits Authorized [id number] Closed 06/21/2017 06/21/2018 1 1 Encounter Details Date Type Department Care Team Description 07/02/2017 Office Visit Radiation Oncology at Alden Ramos A denocarcinoma, lung, [facility] [address] [place], [place] RADIATION ONCOL OGY [address] [place], [place] [phone] (Wo rk) Social History Tobacco Use Types [...] Time Taken Comments Blood Pressure 140/71 07/02/2017 1:00 PM EST Pulse 112 07/02/2017 1:00 PM EST Temperature 36.7 ??C (98 ??F) 07/02/2017 1:00 PM EST Respiratory Rate 20 07/02/2017 1:00 PM EST Oxygen Saturation 98% 07/02/2017 1:00 PM EST Inhaled Oxygen Concentration - - Weight 142.4 kg (314 lb) 07/02/2017 1:00 PM EST Height 180 cm (5' 10.87) 07/02/2017 1:00 PM EST Body Mass Index 43.96 07/02/2017 1:00 PM EST documented in this encounter Patient Instructions Patient InstructionsAlden Ramos MD - 07/02/2017 2:00 PM EST Dear Mr. Meek, Dr. Martinez asked for me to see you to discuss how radiation therapy can be used to treat your lung cancer and this note is to recap our discussion regarding use of radiation treatments. As your radiationoncologist, I work closely with your other healthcare providers and most importantly, with you to make sure that the treatments we discuss and offer keep your personal preferences and goals in mind. We discussed the following next steps as part of your cancer evaluation and/or treatment: ?? Treatment for Stage 3a lung cancer: Based on the biopsies, PET scan and CAT scan you had so far, it seems that the cancer is limited to the lung and lymph nodes in the chest. Typical treatment options include either chemotherapy followed by surgery, or combination chemotherapy and radiation treatments. ?? Clinical Trial: There is currently a clinical trial that he might be open for at [facility], whichis looking at the use of the new chemotherapy drug which may be more active for cancers like yours, followed by surgery. When you go down there to meet the surgeons, we will see if you can see one of the chemo doctors who can discuss this trial in more detail on the same day. ?? Referrals: I have made referrals to both medical oncology as well as surgical oncology to look into the option of chemotherapy followed by surgery. If it is not felt that surgery is a good option for you, then we will proceed with combined chemotherapy radiation here in [facility]. Please do not hesitate to call me at [phone] with any other questions or concerns you have. If I am not here, one of our radiation oncology nurses can assist you or help you get in touch with me. A Radiation Oncology doctor is also recreation leader after our normal hours and on weekends for urgent questions or concerns related to radiation treatments that can not wait until normal business hours. To reach the on-call doctor after-hours, just call and have the profile saw operator page the Radiation Oncologist recreation leader. And, as always, if you experience any life-threatening emergencies which any include the following, you need to seek emergency care immediately by calling 911: 1. Sudden and unexpected breathing difficulty without any exertion 2. Sudden onset of chest pain 3. Sudden onset of severe pain or uncontrolled pain 4. Sudden onset of severe weakness and/or unable to walk 5. Sudden new onset of a seizure 6. Fall resulting in injury 7. Uncontrollable bleeding Alden Cleary MD Pewter Finisherstaff midwife Radiation Oncology [facility] documented in this encounter Progress Notes Madina Wall RN - 07/02/2017 2:00 PM EST RADIATION ONCOLOGY NURSING INITIAL NURSING ASSESSMENT IDENTIFICATION: Alin Meek is a 66 y.o. year-old male with lung cancer REVIEW OF SYSTEMS:see scanned docs IN THE PAST 12 MONTHS HAVE YOU: Fallen more than one time? No Injured yourself as result of the fall? No Experienced difficulty with walking/problems with balance? No Do you use any assistive devices? YES, uses cane on icy days Any Implanted Devices/Hardware: right knee replacement, mesh umbilical hernia repair If yes please put alert in ARIA patient summary Prior Radiotherapy: No [x] Yes [] Site: Date: Physician/Location: Prior Chemotherapy: No [x] Yes [] Drug(s): Physician/Location: Date of last treatment: Prior Hormone Therapy: No [x] Yes [] Drug(s): Physician/Location: Other: Patient denies history of sclera derma and Lupus RADIOLOGY SAFETY QUESTIONS REVIEWED: If applicable MRICTSAFETYQUESTIONS LEARNING ASSESSMENT REVIEWED: yes ADVANCED DIRECTIVE: Not discussed today. PAIN ASSESSMENT: [4] out of 10 *eD-H Adult PCS Flow Sheet if 4 or above Chronic arthritis pain SOCIAL ASSESSMENT: See EDH social assessment information entered. Support Systems: lives with , Stephanie Barriers to treatment: none Referrals/Interventions: material worker on day per routine. RADIATION SPECIFIC TEACHING:Will provide the following information on day [facility] Radiation Therapy and You Site specific teaching : chest Other: PLAN: Per Dr Ramos's note Alden Ramos MD - 07/02/2017 2:00 PM EST Images from the original note were not included. Radiation Oncology Consult Note Alden Ramos MD, MS [facility] [phone] PATIENT IDENTIFICATION: PATIENT NAME: Alin Meek DATE OF : 1950 REFERRING PROVIDER: Farzaneh Winkler, NOLAN [address] [place] [address] REASON FOR CONSULTATION : Primary lung adenocarcinoma, right Staging form: Lung, AJCC 8th Edition - Clinical: cT2, cN2, cM0 - Signed by Alden Ramos MD on 07/02/2017 HISTORY OF PRESENT ILLNESS: Alin Meek is a 66 y.o. recently diagnosed with a stage IIIA lung cancer. He was seen inthe setting of worsening shortness of breath, and CT chest on 05/04 showed a large right hilar mass with associated atelectasis of the right lung as well as lymphadenopathy at 4R, 7 and the contralateral hilum. PFTs were measured 05/08, FEV1 65% and DLCO 72%. PET/CT on 05/22 showed FDG avidity in the contiguous right upper lobe and hilar mass, as well as the right paratracheal lymph node. There was no appreciable FDG avidity at the subcarinal station or contralateral hilum. EBUS 05/[address] Spann showed adenocarcinoma that was strongly PDL 1 positive. Biopsies from 7 and 11L were negative. His case was discussed at [facility] on 06/01 with recommendation of completion staging MRI to be followedby referrals for consideration of chemoradiation versus chemotherapy by surgery. He is here today to discuss the option of chemoradiation for his newly diagnosed locally advanced lung cancer. REVIEW OF SYSTEMS: On further questioning, he reports ongoing dyspnea and poor exercise tolerance. He had some hemoptysis after his biopsy that has since resolved. He also describes some wheezing with exertion. He has recently gained weight and has chronic pruritus. His primary complaint today is chronic backache due tolong- standing back injury while he was in the service. He also has generalized arthritis and stiffness. A comprehensive 14 point review of systems was conducted with this patient and is otherwise negative except as documented above. This patient reported questionnaire is available for review in 'scanned documents.' PAST MEDICAL HISTORY Past Medical History: Diagnosis Date ??? Adenocarcinoma, lung, right ??? COPD (chronic obstructive pulmonary disease) ??? DJD (degenerative joint disease) ??? HTN (hypertension), benign Past Surgical History: Procedure Laterality Date ??? LUMBAR DISC SURGERY ??? SUBTOTAL COLECTOMY 05/23/2016 ??? TOTAL KNEE ARTHROPLASTY Right ??? UMBILICAL HERNIA REPAIR CONTRAINDICATIONS TO RADIATION THERAPY: None ?? Prior radiation therapy: No ?? Active Lupus: No ?? Systemic Scleroderma: No MEDICATIONS AND ALLERGIES: Medications <Not Reviewed> Medication Sig Taking? amlodipine (NORVASC) 5 mg tablet 5mg, PO, Once daily sildenafil (VIAGRA) 100 mg tablet 50MG, PO, PRN Allergies Allergen Reactions ??? 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 Smoking: Quit 03/2016, 100+ pyh Alcohol Prior heavy (12 beers / day); Quit 03/2016 Illicits: Denies FAMILY HISTORY: Reviewed with the patient and/or in the medical system and for the above diagnosis and is notable for the following cancers in his family members: Brother - H/N cancer PHYSICAL EXAM BP 140/71 Pulse (!) 112 Temp 36.7 ??C (98 ??F) Resp 20 Ht 180 cm (5' 10.87) Wt (!) 142.4 kg (314 lb) SpO2 98% BMI 43.96 kg/m2 General: alert, well appearing, and in no distress sitting in exam room with at side CV - regular Resp -diffuse respiratory rales and expiratory wheeze, bilateral Abd -obese, well-healed midline surgery scar Physical Exam TODAY'S PERFORMANCE STATUS: KPS Score ECOG Grade Definition 90-100 0 [...] selfcare; totally confined to bed or chair PATHOLOGY REVIEW: Pathology was reviewed in the medical record and is summarized below: Site: [facility] 05/28/17 (Dr. Spann) Histology / Grade: 4R: Adenocarcinoma 7, 11L: negative Margin / Westley status: n/a Other prognostic factors: PDL-1 (+) Reviewed at [facility] Y IMAGING REVIEW: I have personally reviewed the following scans, and interpret them as follows. FDG avid right lung / hilar mass. Cook Apprentice Pastry imaging copied below. ASSESSMENT / PLAN: Alin Meek is a 66 y.o. male diagnosed with stage IIIa adenocarcinoma of the right lung. He has had a negative CT of the brain, though refuses MRI due to concerns of claustrophobia. I discussed with Mr. Meek that treatment approaches for stage III lung cancer are somewhat controversial. Given that there is some clinical equipoise between the options of chemoradiation versus chemotherapy followed by surgery, I reviewed the logistics, toxicities and complications associated with c hemoradiotherapy and suggested that he do the same with one of our thoracic surgeons at [facility]. He may also be eligible for a clinical trial investigating preoperative trial investigating atezolizumab or pembrolizumab, and we will try to arrange a coordinated visit with Dr. Wang in one of the surgeons. To be sure, I am not certain that he will be felt to be surgical candidate or a trial candidate. His PFTs seem to be relatively well-preserved, however he is rather obese with at best marginal seeming exercise tolerance. As far as further testing goes, he has refused an MRI, though I imagine that quantitative PFT or an exercise stress test will be necessary. I will leave that to the discretion of thoracic surgery. He does seem inclined towards surgery, based on information he has previously received from friends and family members. For that reason we will arrange a consultation, and if surgery is felt not to be possible, then we will proceed with chemoradiation here in [facility]. All of this patient's questions were answered to his fullest satisfaction, and we have provided him with our contact information should any further questions or concerns arise. SUMMARY OF PLAN / RECOMMENDATION: 1. Intent of therapy: Curative 2. Clinical Trial Availability: TBD - pending eval with Dr. Wang or Elroy 3. Thoracic Surgery referral TIME ATTESTATION: Greater than 50% of this 60 minute visit was spent with the patient [id number] reviewing his interval medical history and answering questions related to his lung cancer. ALDEN RAMOS MD, MS ADDENDUM 07/03/17 8:57AM: Case discussed at [facility]. Surgeons present (Drs. Bernal and Scotty) indicated that based on burden of hilar disease, Alin would require a pneumonectomy which he is unlikely to tolerate. We will therefore cancel appointments with thoracic surgery and Dr. Wang and instead arrange to proceed with chemoRT in [facility]. I have contacted Alin and notified him of the change in plan. documented in this encounter Miscellaneous Notes Addendum Note - Alden Ramos MD - 07/03/2017 8:59 AM EST Addended by: ALDEN RAMOS on: 07/03/2017 08:59 AM Modules accepted: Orders documented in this encounter Plan of Treatment Upcoming Encounters Date Type Specialty Care Team Description 01/19/2022 Office Visit Hematology and Oncology Loan Burton, INDUSTRIAL EDUCATION INSTRUCTOR [facility] HEMATOLOGY/[place] [address] 01/19/2022 Infusion Hematology and Oncology Canc eled (F-ARIA CANCEL) 01/25/2022 Hospital Gastroenterology Jose Clark MD [facility] [place] [address] 01/25/2022 Surgery Gastroenterology Jose Clark UPPE R GI R, MD ENDOSCOPY [facility] [place] [address] 01/26/2022 Office Visit Hematology and Oncology Fabian Cameron MD [facility] HEMATOLOGY/[place] [address] Loan Burton APRN [facility] HEMATOLOGY/[place] [address] 01/26/2022 Infusion Hematology and Oncology 02/02/2022 Office Visit Hematology and Oncology Fabian Cameron MD [facility] HEMATOLOGY/[place] [address] 02/02/2022 Infusion Hematology and Oncology 02/22/2022 Telephone Hematology and Oncology Siena Lloyd, MUKUND [facility] [address] H[place]ATOLOGY [place] [address] Scheduled Orders Name Type Priority Associated Diagnoses Order S chedule Simulation for Procedures Routine Adenocarcinoma, lung, Orde red: 07/03/2017 Radiation Therapy right Planning Scheduled Procedures Name Priority Associated Diagnoses Date/Time EGD, UPPER GI ENDOSCOPY EGD with stent vs 2021 12:00 PM EDT cryotherapy. Scheduled Referrals Name Type Priority Associated Order Schedule Diagnoses Referral to Thoracic Outpatient Referral Routine Adenocarcinom a, Ordered: Surgery lung, right 07/02/2017 Referral to Outpatient Referral Routine Adenocarcinoma, Order ed: Hematology and lung, right 07/02/2017 Oncology documented as of this encounter Visit Diagnoses Diagnosis Adenocarcinoma, lung, right documented in this encounter Care Teams Bench Assembler Operator Relationship Specialty Start Date End Date Farzaneh Winkler, INDUSTRIAL EDUCATION INSTRUCTOR PCP - General General Internal Medicine 06/05/[address] [place] [id number] documented as of this encounter
--- OUTSIDE RECORDS SUMMARY | 2022-01-19 07:40 | XMS_ITS | Encounter Summary ---
:1950 Author Organization [facility] [place] [address] Care Team Providers Name Role Phone Farzaneh Winkler APRN Primary Care Provider Reason for Visit Reason Comments Chemotherapy Cycle 1 day 15 Treatment/Therapy Plan Authorization (Routine) - Closed Specialty Diagnoses / Procedures Referred By Contact Refer red To Contact Diagnoses Primary lung adenocarcinoma, right Jonathan Bishop MD [facility] [address] [place] [address] 182 [address] [place] [address] Phone: Fax: Referral ID Status Reason Start Date Expiration Date Visits Requ ested Visits Authorized [id number] Closed 07/10/2017 07/10/2018 1 1 Encounter Details Date Type Department Care Team Description 07/26/2017 [facility] [address] [place] [phone] Social History Tobacco Use Types [...] to drink heavily ( 12 pck/day) 01/15 2015 Sex Assigned at Date Recorded Not on file documented as of this encounter Progress Notes Janett Wilks RN - 07/26/2017 11:00 AM EST INFUSION THERAPY ADMINISTRATION NOTES DIAGNOSIS: Lung Cancer CYCLE #:1 Day 15 REASON FOR VISIT: Docetaxel/Carboplatin SUBJECTIVE Alin Meek offers no complaints. OBJECTIVE LAB DATA: adequate for treatment, reviewed by Dr. Bishop IV ACCESS: Mediport Positive blood return. Flushed and deaccessed at completeion of treatment Pre administration: Chemotherapy orders independently verified for drug name, route, and dosage per patient's height, weight and BSA by JANETT WILKS, MADISYN & Pharmacist on site REACTIONS (DESCRIPTIO, fN, TIME, INTERVENTION AND EFFECTIVENESS) none ASSESSMENT Alin Meek was awake, alert and tolerated treatment well. PLAN Return to clinic as scheduled documented in this encounter Plan of Treatment Upcoming Encounters Date Type Specialty Care Team Description 01/19/2022 Office Visit Hematology and Oncology Loan Burton, NOLAN [facility] HEMATOLOGY/[place] [address] 01/19/2022 Infusion Hematology and Oncology Canc eled (F-ARIA CANCEL) 01/25/2022 Hospital Gastroenterology Jose Clark MD [facility] [place] [address] 01/25/2022 Surgery Gastroenterology Jose Clark UPPE R GI R, MD ENDOSCOPY [facility] [place] [address] 01/26/2022 Office Visit Hematology and Oncology Fabian Cameron MD [facility] HEMATOLOGY/[place] [address] Loan Burton, NOLAN [facility] HEMATOLOGY/[place] [address] 01/26/2022 Infusion Hematology and Oncology 02/02/2022 Office Visit Hematology and Oncology Fabian Cameron MD [facility] HEMATOLOGY/[place] [address] 02/02/2022 Infusion Hematology and Oncology 02/22/2022 Telephone Hematology and Oncology Siena Lloyd RD [facility] DRIVE [place] [address] Scheduled Procedures Name Priority Associated Diagnoses Date/Time EGD, UPPER GI ENDOSCOPY EGD with stent vs 2021 12:00 PM EDT cryotherapy. documented as of this encounter Visit Diagnoses Diagnosis Primary lung adenocarcinoma, right documented in this encounter Administered Medications Inactive Administered Medications - up to 3 most recent administrations Medication Order MAR Action Action Date Dose Rate Site CARBOplatin (PARAPLATIN) 208 New Bag 07/26/2017 2:18 PM EST 208 mg 541.6 mL/hr mg in sodium chloride 0.9% 270.8 mL chemo infusion 208 mg (rounded from 208.2 mg, Target AUC = 2), Intravenous, WEEKLY, First dose on Stephanie 07/26/17 at 1230, Until Discontinued, Administer over 30 Minutes, Hold Parameters: CARBOplatin, Call provider for serum creatinine less than (mg/dL): .2, Call provider for serum creatinine greater than (mg/dL): 2, External serum creatinine results used to calculate dose? Yes, Enter serum creatinine value (mg/dL): 1.85, Enter serum creatinine result date: 06/29/2017 dexamethasone (DECADRON) injection 10 mg Given 07/26/2017 11:36 AM EST 10 mg 10 mg, Intravenous, ONCE, 1 dose, On Stephanie 07/26/17 at 1130, Administer 60 minutes prior to DOCEtaxel diphenhydrAMINE (BENADRYL) injection 25 mg Given 07/26/2017 11:44 AM EST 25 mg 25 mg, Intravenous, ONCE, 1 dose, On Stephanie 07/26/17 at 1130, Administer 60 minutes prior to DOCEtaxel, Routine DOCEtaxel (TAXOTERE) 53 mg in New Bag 07/26/2017 1:12 PM EST 53 mg 102.7 mL/hr sodium chloride 0.9% Non-PVC 102.65 mL chemo infusion 53 mg (rounded from 53.4 mg = 20 mg/m2/dose ? 2.67 m2 Treatment Plan BSA from Recorded weight), Intravenous, ONCE, 1 dose, On Stephanie 07/26/17 at 1230, Administer over 60 Minutes, Warning Vesicant/Irritant Medication famotidine (PEPCID) injection 20 mg Given 07/26/2017 11:41 AM EST 20 mg 20 mg, Intravenous, ONCE, 1 dose, On Stephanie 07/26/17 at 1130, Administer 60 minutes prior to DOCEtaxel fosaprepitant (EMEND) 150 mg in New Bag 07/26/2017 11:55 AM ES T 150 mg 310 mL/hr sodium chloride 0.9% 155 mL infusion 150 mg, Intravenous, at 310 mL/hr, ONCE, 1 dose, On Stephanie 07/26/17 at 1130, Routine heparin, porcine 100 unit/mL flush 500 Given 07/26/2017 3:05 PM EST 500 Units Units 500 Units, Intravenous, ONCE PRN, Starting on Stephanie 07/26/17 at 1102, Until Stephanie 18 at 1755, Line Care, Refer to Intravenous (IV) Procedure: Accessing Implanted Vascular Access Devices (844) procedure and/or Intravenous (IV) Job Aid: Adult Flushing & Catheter Care (4785) job aid for additional information regarding guidelines and administration., Routine palonosetron (ALOXI) injection 0.25 mg Given 07/26/2017 11:39 AM EST 0.25 mg 0.25 mg, Intravenous, ONCE, 1 dose, On Stephanie 07/26/17 at 1130, Administer over 30 seconds., Routine sodium chloride 0.9 % flush 5-20 mL Given 07/26/2017 3:05 PM EST 20 mLs 5-20 mL, Intravenous, EVERY 1 MIN PRN, Starting on Stephanie 07/26/17 at 1102, Until Stephanie 218 at 1755, Line Care, Flush pertains to all indwelling lines. Flush per protocol found in the job aid using the link provided on this medication record. Refer to Intravenous (IV) Job Aid: Adult Flushing & Catheter Care (1167) job aid for additional information regarding guidelines and administration., Routine sodium chloride 0.9% infusion New Bag 07/26/2017 3:00 PM EST 500 mLs 500 mL, Intravenous, ONCE, 1 dose, On Stephanie 07/26/17 at 1130 New Bag 07/26/2017 11:30 AM EST 500 mLs documented in this encounter Care Teams Freight Car Inspector Relationship Specialty Start Date End Date Farzaneh Winkler, TEACHER INSTRUMENTAL PCP - General General Internal Medicine 06/05/[address] [place], [place] [id number] documented as of this encounter
--- OUTSIDE RECORDS SUMMARY | 2022-01-19 07:40 | XMS_ITS | Encounter Summary ---
:1950 Author Organization [facility] [place] [address] Care Team Providers Name Role Phone Farzaneh Winkler APRN Primary Care Provider Reason for Visit Reason Comments Chemotherapy Cycle 1 Day 8 Treatment/Therapy Plan Authorization (Routine) - Closed Specialty Diagnoses / Procedures Referred By Contact Refer red To Contact Diagnoses Primary lung adenocarcinoma, right Jonathan Bishop MD [facility] Hem Onc Office [address] [place] [address] [phone] [place] [address] Phone: Fax: Referral ID Status Reason Start Date Expiration Date Visits Requ ested Visits Authorized [id number] Closed 07/10/2017 07/10/2018 1 1 Encounter Details Date Type Department Care Team Description 07/19/2017 [facility] [address] [place] [address] [phone] Social History Tobacco Use Types [...] encounter Progress Notes Dina Miranda RN - 07/19/2017 11:00 AM EST INFUSION THERAPY ADMINISTRATION NOTES DIAGNOSIS: Lung Cancer CYCLE #:1 Day 8 REASON FOR VISIT: Docetaxel/Carboplatin SUBJECTIVE Alin Meek offers no complaints. States had some nausea after Day 1 OBJECTIVE LAB DATA: adequate for treatment IV ACCESS: Mediport Good blood return. Flushed and deaccessed at end of treatment Pre administration: Chemotherapy orders independently verified for drug name, route, and dosage per patient's height, weight and BSA by Bev MARS & Pharmacist on site REACTIONS (DESCRIPTIO, fN, TIME, INTERVENTION AND EFFECTIVENESS) none ASSESSMENT Alin Meek was awake, alert and tolerated treatment well. PLAN Return to clinic Sunday for Aloxi per Dr. Bishop documented in this encounter Plan of Treatment Upcoming Encounters Date Type Specialty Care Team Description 01/19/2022 Office Visit Hematology and Oncology Loan Burton, NOLAN [facility] HEMATOLOGY/[place] [address] 01/19/2022 Infusion Hematology and Oncology Canc eled (F-ARIA CANCEL) 01/25/2022 Hospital Gastroenterology Jose Clark MD [facility] [place] [address] 01/25/2022 Surgery Gastroenterology Jose Clark UPPE R GI R, MD ENDOSCOPY [facility] [place] [address] 01/26/2022 Office Visit Hematology and Oncology Fabian Cameron MD [facility] HEMATOLOGY/[place] [address] Loan Burton, NOLAN [facility] HEMATOLOGY/[place] [address] 01/26/2022 Infusion Hematology and Oncology 02/02/2022 Office Visit Hematology and Oncology Fabian Cameron MD [facility] HEMATOLOGY/[place] [address] 02/02/2022 Infusion Hematology and Oncology 02/22/2022 Telephone Hematology and Oncology Siena Lloyd RD [facility] DRIVE HEMATOLOGY [place] [address] Scheduled Procedures Name Priority Associated Diagnoses Date/Time EGD, UPPER GI ENDOSCOPY EGD with stent vs 2021 12:00 PM EDT cryotherapy. documented as of this encounter Visit Diagnoses Diagnosis Primary lung adenocarcinoma, right documented in this encounter Administered Medications Inactive Administered Medications - up to 3 most recent administrations Medication Order MAR Action Action Date Dose Rate Site CARBOplatin (PARAPLATIN) 294 New Bag 07/19/2017 1:56 PM EST 294 mg 358.8 mL/hr mg in sodium chloride 0.9% 179.4 mL chemo infusion 294 mg (Target AUC = 2), Intravenous, WEEKLY, First dose (after last modification) on Stephanie 07/19/17 at 1230, Until Discontinued, Administer over 30 Minutes, Hold Parameters: CARBOplatin, Call provider for serum creatinine less than (mg/dL): .2, Call provider for serum creatinine greater than (mg/dL): 2, External serum creatinine results used to calculate dose? Yes, Enter serum creatinine value (mg/dL): 1.2, Enter serum creatinine result date: 06/29/2017 dexamethasone (DECADRON) injection 10 mg Given 07/19/2017 11:36 AM EST 10 mg 10 mg, Intravenous, ONCE, 1 dose, On Stephanie 07/19/17 at 1130, Administer 60 minutes prior to DOCEtaxel diphenhydrAMINE (BENADRYL) injection 25 mg Given 07/19/2017 11:39 AM EST 25 mg 25 mg, Intravenous, ONCE, 1 dose, On Stephanie 07/19/17 at 1130, Administer 60 minutes prior to DOCEtaxel, Routine DOCEtaxel (TAXOTERE) 53 mg in New Bag 07/19/2017 12:46 PM EST 53 m g 103 mL/hr sodium chloride 0.9% Non-PVC 102.65 mL chemo infusion 53 mg (rounded from 53.4 mg = 20 mg/m2/dose ? 2.67 m2 Treatment Plan BSA from Recorded weight), Intravenous, ONCE, 1 dose, On Stephanie 18 at 1230, Administer over 60 Minutes, Warning Vesicant/Irritant Medication famotidine (PEPCID) injection 20 mg Given 07/19/2017 11:41 AM EST 20 mg 20 mg, Intravenous, ONCE, 1 dose, On Stephanie 07/19/17 at 1130, Administer 60 minutes prior to DOCEtaxel fosaprepitant (EMEND) 150 mg in New Bag 07/19/2017 11:49 AM ES T 150 mg 310 mL/hr sodium chloride 0.9% 155 mL infusion 150 mg, Intravenous, at 310 mL/hr, ONCE, 1 dose, On Stephanie 07/19/17 at 1130, Routine heparin, porcine 100 unit/mL flush 500 Given 07/19/2017 2:30 PM EST 500 Units Units 500 Units, Intravenous, ONCE PRN, Starting on Stephanie 07/19/17 at 1110, Until Stephanie 07/19/17 at 1746, Line Care, Refer to Intravenous (IV) Procedure: Accessing Implanted Vascular Access Devices (114) procedure and/or Intravenous (IV) Job Aid: Adult Flushing & Catheter Care (6079) job aid for additional information regarding guidelines and administration., Routine palonosetron (ALOXI) injection 0.25 mg Given 07/19/2017 11:44 AM EST 0.25 mg 0.25 mg, Intravenous, ONCE, 1 dose, On Stephanie 07/19/17 at 1130, Administer over 30 seconds., Routine sodium chloride 0.9 % flush 5-20 mL Given 07/19/2017 2:30 PM EST 20 mLs 5-20 mL, Intravenous, EVERY 1 MIN PRN, Starting on Stephanie 07/19/17 at 1110, Until Stephanie 18 at 1746, Line Care, Flush pertains to all indwelling lines. Flush per protocol found in the job aid using the link provided on this medication record. Refer to Intravenous (IV) Job Aid: Adult Flushing & Catheter Care (0148) job aid for additional information regarding guidelines and administration., Routine documented in this encounter Care Teams Machine Splitter Relationship Specialty Start Date End Date Farzaneh Winkler APRN PCP - General General Internal Medicine 06/05/[address] [place] [address] documented as of this encounter
--- OUTSIDE RECORDS SUMMARY | 2022-01-19 07:40 | XMS_ITS | Encounter Summary ---
:1950 Author Organization [facility] [place] [address] Care Team Providers Name Role Phone Farzaneh Winkler Daria FRANCISCO Primary Care Provider Encounter Details Date Type Department Care Team Description 06/13/2017 Telephone Thoracic Surgery at [facility] Felipa Rooney [facility] [facility] [address] Social History Tobacco Use Types Packs/Day Years Used Date Never Assessed Sex Assigned at Date Recorded Not on file documented as of this encounter Miscellaneous Notes Telephone Encounter - Felipa Rooney LNA - 06/13/2017 4:29 PM EST Mr. Meek is scheduled to have his MRI done on 06/25/2017 at 3:00. [facility] documented in this encounter Plan of Treatment Upcoming Encounters Date Type Specialty Care Team Description 01/19/2022 Office Visit Hematology and Oncology Loan Burton APRN [facility] HEMATOLOGY/[place] [address] 01/19/2022 Infusion Hematology and Oncology Canc eleseema (F-ARIA CANCEL) 01/25/2022 Hospital Gastroenterology Jose Clark Encounter RMD [facility] [place] [address] 01/25/2022 Surgery Gastroenterology Jose Clark EGD, LOLA Yates MD ENDOSCOPY [facility] [place] [address] 01/26/2022 Office Visit Hematology and Oncology Fabian Cameron MD [facility] DR HEMATOLOGY/[place] [address] Loan Burton TODDLER LEAD TEACHER [facility] HEMATOLOGY/[place] [address] 01/26/2022 Infusion Hematology and Oncology 02/02/2022 Office Visit Hematology and Oncology Fabian Cameron MD [facility] DR HEMATOLOGY/[place] [address] 02/02/2022 Infusion Hematology and Oncology 02/22/2022 Telephone Hematology and Oncology Siena Lloyd, MUKUND [facility] DRIVE [place] [address] Scheduled Procedures Name Priority Associated Diagnoses Date/Time EGD, UPPER GI ENDOSCOPY EGD with stent vs 2021 12:00 PM EDT cryotherapy. documented as of this encounter Visit Diagnoses Not on filedocumented in this encounter Care Teams Clinical Laboratory Medical Director Relationship Specialty Start Date End Date Farzaneh Winkler, TODDLER LEAD TEACHER PCP - General General Internal Medicine 06/05/[address] [place] [address] documented as of this encounter
--- OUTSIDE RECORDS SUMMARY | 2022-01-19 07:40 | XMS_ITS | Encounter Summary ---
:1950 Author Organization [facility] [place] [address] Care Team Providers Name Role Phone Farzaneh Winkler Daria FRANCISCO Primary Care Provider Encounter Details Date Type Department Care Team Description 08/09/2017 Office Visit Radiation Oncology at [facility] A denocarcinoma, lung, [facility] [address] [place] RADIATION ONCOL OGY [address] [place], [place] [phone] (Wo rk) Social History Tobacco Use Types [...] encounter Progress Notes [facility]en Ramos MD - 08/09/2017 2:30 PM EST Images from the original note were not included. RADIATION ONCOLOGY - Weekly On Treatment Visit Note 08/09/17 Alden Ramos MD, [place] Radiation Oncology [facility] [phone] (paging classifier operator) PATIENT IDENTIFICATION NAME: Alin Meek DATE [...] 60 Gy in 30 fractions Current Dose: 42 Gy in 21 fractions Service Representative [place] from Current Plan (minimum 60 Gy isodose volume shown): INTERVAL HISTORY Subjective: General - Overall continues to feel well. Chemo held today due to thrombocytopenia. Resp - Somewhat more noticeable esophagitis. He has BMX / carafate but not started using yet. Eatingsofter, milder foods. Otherwise no new cough / SOB. Ongoing CHENG. Pain: Pain score today is 0/10. Nutrition: Weight at start of therapy was 307 lbs --> 307lbs --> 298 lbs today. Eating normal diet. Medications 08/09/17 1049 Medication Sig Taking? loperamide (IMODIUM A-D) 2 [...] every 3h as needed for esophageal pain. sucralfate (CARAFATE) 1 gram Tablet Dissolve in [...] original approved treatment planning images. EXAM: Vitals 08/09/2017 SYSTOLIC 113 DIASTOLIC 62 BP Location PULSE 54 TEMPERATURE 97.7 RESPIRATIONS 18 Height (French) 5' 10.866 Height (Metric) 180 cm Weight (French) 298 lbs Weight (Metric) 135.172 kg BODY MASS INDEX 41.72 kg/m2 Constitutional: he appears well-developed and well-nourished. [...] 01/19/2022 Office Visit Hematology and Oncology oLan Burton APRN [facility] HEMATOLOGY/[place] [address] 01/19/2022 Infusion Hematology and Oncology Canc eled (F-ARIA CANCEL) 01/25/2022 Hospital Gastroenterology Jose Clark MD [facility] [place] [address] 01/25/2022 Surgery Gastroenterology Jose Clark, LOLA Yates MD ENDOSCOPY [facility] [place] [address] 01/26/2022 Office Visit Hematology and Oncology Fabian Cameron MD [facility] DR HEMATOLOGY/[place] [address] Loan Burton INVESTIGATION MANAGER [facility] HEMATOLOGY/[place] [address] 01/26/2022 Infusion Hematology and Oncology 02/02/2022 Office Visit Hematology and Oncology Fabian Cameron MD [facility] DR HEMATOLOGY/[place] [address] 02/02/2022 Infusion Hematology and Oncology 02/22/2022 Telephone Hematology and Oncology Siena Lloyd, MUKUND [facility] DRIVE [place] [address] Scheduled Procedures Name Priority Associated Diagnoses Date/Time EGD, UPPER GI ENDOSCOPY EGD with stent vs 2021 12:00 PM EDT cryotherapy. documented as of this encounter Visit Diagnoses Diagnosis Adenocarcinoma, lung, right documented in this encounter Care Teams [id number] Tank Crewman Relationship Specialty Start Date End Date Farzaneh Winkler, INVESTIGATION MANAGER PCP - General General Internal Medicine 06/05/[address] [place] [address] documented as of this encounter
--- OUTSIDE RECORDS SUMMARY | 2022-01-19 07:40 | XMS_ITS | Encounter Summary ---
:1950 Author Organization [facility] [place] [address] Care Team Providers Name Role Phone Peterson Farzaneh Huff APRN Primary Care Provider Encounter Details Date Type Department Care Team Description 08/03/2017 Notes [facility] [address] [phone] Social History Tobacco Use [...] Sign Reading Time Taken Comments Blood Pressure 118/66 08/03/2017 9:50 AM EST Pulse 114 08/03/2017 9:50 AM EST Temperature - - Respiratory Rate - - Oxygen Saturation 97% 08/03/2017 9:50 AM EST Inhaled Oxygen Concentration - - Weight - - Height - - Body Mass Index - - documented in this encounter Progress Notes Madina Wall RN - 08/03/2017 10:00 AM EST Radiation Oncology Nurse Note [place], [place] Patient was seen after daily radiation treatment today asking that nursing check his BP machine against ours to measure accuracy. He has been noticing that his readings have been lower than ours. Vitals: 08/03/17 0945 08/03/17 0950 BP: 120/74 118/66 BP Location ([facility] Left arm Left arm Patient Position: Sitting Sitting BP Cuff Sizes: Large Adult (32-43 cm) Pulse: (!) 115 (!) 114 SpO2: 97% He demonstrated correct technique in checking his BP with his own machine. We then checked it with our clinic machine. The Sao2 monitor shows pulse that ranges from 114 - 136. radial pulse irregular. He states that he has been told that his pulse has been irregular recently while getting chemo and radiation treatments here. He denies dizziness ( except for when he was recently dehydrated with diarrhea). He states that he is feeling quite well and has no complaints. He states that he sees his PCP, Farzaneh Winkler APRN at the [facility] next Sunday 08:00. He has been thinking of cancelling it because his XRT is the same day at 10:00 and he is afraid he will belate. His PCP's office is 1 hour away from our clinic and she is only there on Fridays. Intervention: I explained the importance that he keep his PCP appt and our radiation staff will workaround this if he runs late. He was instructed to seek emergency medical attention at local ER if he develops chest pain, chest palpations, increase CHENG or any dizziness. Patient verbalized understanding of these instructions and agreed with this plan. 10:25 AM Phone call placed to [facility] office at [phone] . I asked to speak with Farzaneh Winkler or triage nurse, I was transferred and received voice mail to leave a message. I left above information and asked for a call back to discuss his care and to get their fax number so that I can send recent clinic notes. Dr Bishop and Dr Ramos informed of this via this note. Amendment: 13:50 Melissa Barrios RN case manger from [facility], called back I shared above information with her. She mentioned that he has a h/o PACs ( I added this to his history section). She will let Farzaneh know of this and she anticipates that she might order an EKG. She plans to call patient to check on him and confirm with him when he is and is not taking his BP meds. Recent clinic notes faxed to [place] clinic at :[phone] documented in this encounter Plan of Treatment Upcoming Encounters Date Type Specialty Care Team Description 01/19/2022 Office Visit Hematology and Oncology Loan Burton APRN [facility] HEMATOLOGY/[place] [address] 01/19/2022 Infusion Hematology and Oncology Canc eled (F-ARIA CANCEL) 01/25/2022 Hospital Gastroenterology Jose Clark MD [facility] [place] [address] 01/25/2022 Surgery Gastroenterology Jose Clark EGLOLA Escobar MD ENDOSCOPY [facility] [place] [address] 01/26/2022 Office Visit Hematology and Oncology Fabian Cameron MD [facility] HEMATOLOGY/[place] [address] Loan Burton APRN [facility] HEMATOLOGY/[place] [address] 01/26/2022 Infusion Hematology and Oncology 02/02/2022 Office Visit Hematology and Oncology Fabian Cameron MD [facility] HEMATOLOGY/[place] [address] 02/02/2022 Infusion Hematology and Oncology 02/22/2022 Telephone Hematology and Oncology Siena Lloyd RD [facility] HEMATOLOGY [place] [address] Scheduled Procedures Name Priority Associated Diagnoses Date/Time EGD, UPPER GI ENDOSCOPY EGD with stent vs 2021 12:00 PM EDT cryotherapy. documented as of this encounter Visit Diagnoses Not on filedocumented in this encounter Care Teams Instructor Technical Training Relationship Specialty Start Date End Date Farzaneh Winkler, FRONT OFFICE SPEC PCP - General General Internal Medicine 06/05/[address] [place] [address] documented as of this encounter
--- OUTSIDE RECORDS SUMMARY | 2022-01-19 07:40 | XMS_ITS | Encounter Summary ---
:1950 Author Organization [facility] [place] [address] Care Team Providers Name Role Phone PetersonRamónrubio Huff APRN Primary Care Provider Encounter Details Date Type Department Care Team Description 06/05/2017 Hospital Encounter Laboratory [facility] [place] [address] Social History Tobacco Use Types Packs/Day Years Used Date Never Assessed Sex Assigned at Date Recorded Not on file documented as of this encounter Medications at Time of Discharge Medication Sig Dispensed Refills Start Date End Date amlodipine (NORVASC) 5 mg 5mg, PO, Once daily 0 0 08/01/2006 07/02/2017 tablet lisinopril-hydrochlorothi 1 Tablet(s), PO, 0 07/1907/02/2017 azide Once daily (PRINZIDE;ZESTORETIC) 20-12.5 mg per tablet sildenafil (VIAGRA) 100 50MG, PO, PRN 0 08/01/200 7 07/02/2017 mg tablet documented as of this encounter Plan of Treatment Upcoming Encounters Date Type Specialty Care Team Description 01/19/2022 Office Visit Hematology and Oncology Loan Burton APRN [facility] HEMATOLOGY/[place] [address] 01/19/2022 Infusion Hematology and Oncology Canc eled (F-ARIA CANCEL) 01/25/2022 Hospital Gastroenterology Jose Clark MD [facility] GASTROENTEROLOG [place] [address] 01/25/2022 Surgery Gastroenterology Jose Clark, LOLA Yates MD ENDOSCOPY [facility] DR GASTROENTEROLOG [place] [address] 01/26/2022 Office Visit Hematology and Oncology Fabian Cameron MD [facility] DR HEMATOLOGY/[place] [address] Loan Burton [employer]AMP[employer] INTERN [facility] HEMATOLOGY/[place] [address] 01/26/2022 Infusion Hematology and Oncology 02/02/2022 Office Visit Hematology and Oncology Fabian Cameron MD [facility] DR HEMATOLOGY/[place] [address] 02/02/2022 Infusion Hematology and Oncology 02/22/2022 Telephone Hematology and Oncology Siena Lloyd, MUKUND [facility] DRIVE HEMATOLOGY [place] [address] Scheduled Procedures Name Priority Associated Diagnoses Date/Time EGD, UPPER GI ENDOSCOPY EGD with stent vs 2021 12:00 PM EDT cryotherapy. documented as of this encounter Visit Diagnoses Not on filedocumented in this encounter Care Teams Topology Professor Relationship Specialty Start Date End Date Farzaneh Winkler APRN PCP - General General Internal Medicine 06/05/[address] [place] [address] documented as of this encounter
--- OUTSIDE RECORDS SUMMARY | 2022-01-19 07:41 | XMS_ITS | Encounter Summary ---
:1950 [place] [address] Care Team Providers Name Role Phone Malvin ZIEGLER MD, Paul Marcum Primary Care Provider [phone] Encounter Details Date Type Department Care Team Description 05/04/2017 Hospital Encounter Radiology Library at [place], Otf Link MD [facility] [place] [address] [place] [address] [phone] (Wo rk) Social History Tobacco Use Types [...] Office Visit Hematology and Oncology Loan Burton, HAND ICER [facility] HEMATOLOGY/[place] [address] 01/19/2022 Infusion Hematology and Oncology Canc eled (F-ARIA CANCEL) 01/25/2022 Hospital Gastroenterology Jose Clark MD [facility] [place] [address] 01/25/2022 Surgery Gastroenterology Jose Clark EGD, LOLA Yates MD ENDOSCOPY [facility] [place] [address] 01/26/2022 Office Visit Hematology and Oncology Fabian Cameron MD [facility] DR HEMATOLOGY/[place] [address] Loan Burton APRN [facility] HEMATOLOGY/[place] [address] 01/26/2022 Infusion Hematology and Oncology 02/02/2022 Office Visit Hematology and Oncology Fabian Cameron MD [facility] DR HEMATOLOGY/[place] [address] 02/02/2022 Infusion Hematology and Oncology 02/22/2022 Telephone Hematology and Oncology Siena Lloyd, RD [facility] DR[place] [address] Scheduled Procedures Name Priority Associated Diagnoses Date/Time EGD, UPPER GI ENDOSCOPY EGD with stent vs 2021 12:00 PM EDT cryotherapy. documented as of this encounter Procedures Procedure Name Priority Date/Time Associated Comments Diagnosis FILM LIBRARY STORAGE Routine 05/04/2017 12:00 AM Results for this ONLY ULTRASOUND EST procedure ar e in STUDY the results section. documented in this encounter Results Film Library- Storage Only Ultrasound Study (05/04/2017 12:00 AM EST) Specimen (Source) Anatomical Location Collection Method / Collectio n Time Received Time / Laterality Volume Narrative [facility] - 05/31/2017 12:51 PM EST This exam is for storage only and is aut o-finalizing. Otf Jose MD IMG FILM LIBRARY ORDERABLES Performing Organization Address City/State/ZIP Code Phon e Number RAD [place], [place] documented in this encounter Visit Diagnoses Not on filedocumented in this encounter Care Teams Gas Turbine Powerplant Mechanic Relationship Specialty Start Date End Date Paul Coombs III, MD PCP - General 05/10/10 05/31/17 [address] [place] [address] documented as of this encounter
--- OUTSIDE RECORDS SUMMARY | 2022-01-19 07:41 | XMS_ITS | Encounter Summary ---
:1950 [place] [address] Care Team Providers Name Role Phone Malvin ZIEGLER MD, Paul Marcum Primary Care Provider [phone] Encounter Details Date Type Department Care Team Description 05/28/2017 Hospital Encounter Radiology Library at [place], Otf Link MD [facility] ([facility]) [place] [address] [place] [address] [phone] (Wo rk) Social History Tobacco Use Types [...] Office Visit Hematology and Oncology Loan Burton, FREIGHT ELEVATOR ERECTOR [facility] HEMATOLOGY/[place] [address] 01/19/2022 Infusion Hematology and Oncology Canc eled (F-ARIA CANCEL) 01/25/2022 Hospital Gastroenterology Jose Clark MD [facility] [place] [address] 01/25/2022 Surgery Gastroenterology Jose Clark EGD, LOLA Yates MD ENDOSCOPY [facility] [place] [address] 01/26/2022 Office Visit Hematology and Oncology Fabian Cameron MD [facility] DR HEMATOLOGY/[place] [address] Loan Burton APRN [facility] HEMATOLOGY/[place] [address] 01/26/2022 Infusion Hematology and Oncology 02/02/2022 Office Visit Hematology and Oncology Fabian Cameron MD [facility] DR HEMATOLOGY/[place] [address] 02/02/2022 Infusion Hematology and Oncology 02/22/2022 Telephone Hematology and Oncology Prema, Siena Samayoa, RD [facility] DRIVE [place] [address] Scheduled Procedures Name Priority Associated Diagnoses Date/Time EGD, UPPER GI ENDOSCOPY EGD with stent vs 2021 12:00 PM EDT cryotherapy. documented as of this encounter Procedures Procedure Name Priority Date/Time Associated Diagnosis Comme nts FILM LIBRARY Routine 05/28/2017 12:00 AM Results for this STORAGE ONLY DX EST procedure ar e in CHEST the results section. documented in this encounter Results Film Library- Storage Only DX Chest (05/28/2017 12:00 AM EST) Specimen (Source) Anatomical Location Collection Method / Collectio n Time Received Time / Laterality Volume Narrative DH RAD - 06/06/2017 7:48 PM EST This exam is for storage only and is aut o-finalizing. Otf Jose MD IMG FILM LIBRARY ORDERABLES Performing Organization Address City/State/ZIP Code Phon e Number [facility] RAD RAD [place] documented in this encounter Visit Diagnoses Not on filedocumented in this encounter Care Teams Medical Receptionist Relationship Specialty Start Date End Date Paul Coombs III, MD PCP - General 05/10/10 05/31/17 [address] [place] [address] documented as of this encounter
--- OUTSIDE RECORDS SUMMARY | 2022-01-19 07:41 | XMS_ITS | Encounter Summary ---
:1950 Author Organization [facility] [place] [address] Care Team Providers Name Role Phone Malvin ZIEGLER MD, Paul Marcum Primary Care Provider [phone] Encounter Details Date Type Department Care Team Description 05/25/2017 Hospital Encounter Radiology Library at [place], Otf Link MD [facility] [place] [address] [place] [address] [phone] (Wo rk) Social History Tobacco Use Types [...] Office Visit Hematology and Oncology Loan Burton, CIRCULAR KNIFE CUTTER MACHINE [facility] HEMATOLOGY/[place] [address] 01/19/2022 Infusion Hematology and Oncology Canc eled (F-ARIA CANCEL) 01/25/2022 Hospital Gastroenterology Jose Clark MD [facility] [place] [address] 01/25/2022 Surgery Gastroenterology Jose Clark EGD, LOLA Yates MD ENDOSCOPY [facility] [place] [address] 01/26/2022 Office Visit Hematology and Oncology Fabian Cameron MD [facility] DR HEMATOLOGY/[place] [address] Loan Burton APRN [facility] HEMATOLOGY/[place] [address] 01/26/2022 Infusion Hematology and Oncology 02/02/2022 Office Visit Hematology and Oncology Fabian Cameron MD [facility] DR HEMATOLOGY/[place] [address] 02/02/2022 Infusion Hematology and Oncology 02/22/2022 Telephone Hematology and Oncology Prema, Siena Samayoa, RD [facility] DRIVE [place] [address] Scheduled Procedures Name Priority Associated Diagnoses Date/Time EGD, UPPER GI ENDOSCOPY EGD with stent vs 2021 12:00 PM EDT cryotherapy. documented as of this encounter Procedures Procedure Name Priority Date/Time Associated Diagnosis Comme nts FILM LIBRARY Routine 05/25/2017 12:00 AM Results for this STORAGE ONLY CT EST procedure ar e in HEAD the results section. documented in this encounter Results Film Library- Storage Only CT Head (05/25/2017 12:00 AM EST) Specimen (Source) Anatomical Location Collection Method / Collectio n Time Received Time / Laterality Volume Narrative DH RAD - 06/06/2017 7:50 PM EST This exam is for storage only and is aut o-finalizing. Otf Jose MD IMG FILM LIBRARY ORDERABLES Performing Organization Address City/State/ZIP Code Phon e Number DH RAD RAD [place], [place] documented in this encounter Visit Diagnoses Not on filedocumented in this encounter Care Teams Foundry Helper Relationship Specialty Start Date End Date Paul Coombs III, MD PCP - General 05/10/10 05/31/17 [address] [place] [address] documented as of this encounter
--- OUTSIDE RECORDS SUMMARY | 2022-01-19 07:41 | XMS_ITS | Encounter Summary ---
:1950 Author Organization [facility] [place] [address] Care Team Providers Name Role Phone Malvin ZIEGLER MD, Paul Marcum Primary Care Provider [phone] Encounter Details Date Type Department Care Team Description 05/30/2017 Hospital Encounter Laboratory [facility] [place] [address] Social History Tobacco Use Types Packs/Day [...] Office Visit Hematology and Oncology Loan Burton, CRAB STEAMER [facility] HEMATOLOGY/[place] [address] 01/19/2022 Infusion Hematology and Oncology Canc eled (F-ARIA CANCEL) 01/25/2022 Hospital Gastroenterology Jose Clark MD [facility] [place] [address] 01/25/2022 Surgery Gastroenterology Jose Clark EGD, LOLA Yates MD ENDOSCOPY [facility] [place] [address] 01/26/2022 Office Visit Hematology and Oncology Fabian Cameron MD [facility] DR HEMATOLOGY/[place] [address] Loan Burton, CRAB STEAMER [facility] DR HEMATOLOGY/[place] [address] 01/26/2022 Infusion Hematology and Oncology 02/02/2022 Office Visit Hematology and Oncology Fabian Cameron MD [facility] DR HEMATOLOGY/[place] [address] 02/02/2022 Infusion Hematology and Oncology 02/22/2022 Telephone Hematology and Oncology Siena Lloyd, RD [facility] DRIVE [place] [address] Scheduled Procedures Name Priority Associated Diagnoses Date/Time EGD, UPPER GI ENDOSCOPY EGD with stent vs 2021 12:00 PM EDT cryotherapy. documented as of this encounter Procedures Procedure Name Priority Date/Time Associated Diagnosis Comme nts SURGICAL PATHOLOGY Routine 05/30/2017 3:50 PM Res ults for this REPORT EST procedure are i n the results section. MOLECULAR GENETICS Routine 05/30/2017 7:50 AM Res ults for this REPORT EST procedure are i n the results section. documented in this encounter Results Surgical Pathology Report (05/30/2017 3:50 PM EST) Component Value Ref Test Analysis Performed At [facility] Range Method Time Signature Surgical [id number] ? Location: [facility] Report The signing pathologist has (i) examined the relevant preparation(s) for the [facility] specimen(s) and (ii) rendered or confirmed the diagnosis(es) . HOSPITAL LABORATORY . ?Surgic al Pathology DIAGNOSIS CONSULTATION CASE Outside stained slide and 2 unstained sl ezio(s) labeled [id number] ([id number]). Submitted for PD-L1 testing only. ??This case has not been reviewed in its ? entirety. Tumor Proportion Score (TPS): ?% Expression: 90% Interpretation Table: PD-L1 assay (22C3 pharmDX) for Keytruda (pembrolizumab) Tumor Proportion Score (TPS): ?<1% ?PD-L1 Negative ?1% ?PD-L1 Expression ?50% ? PD-L1 High Expression Electronically signed by: ??Ramiro CISNEROS, Kenia Link Verified: ??06/05/2017 ?Pathologist Performed at: ??-[facility] Dept. of Pathology, [place], [place] CLINICAL INFORMATION Specimen Submitted: CONSULTATION CASE A - 1 stained slide and 2 unstained slide(s) labeled [id number] ([id number]), collection date 05/28/2017. [id number] Report to: [facility] Department of Pathology [address] [place] ??[address] , , Ext [phone] SPECIMEN PROCESSING [facility] ([place]) patho logy slide(s) are reviewed. ??Refer to Diagnosis and Specimen Submitted for specific case information. Specimen (Source) Anatomical Collection Method Collection Time Re ceived Time Location / / Volume Laterality 05/30/2017 3:50 PM EST Flora Bedoya MD PATHOLOGY/CYTOLOGY ORDERABLE S Performing Organization Address City/State/ZIP Code [place] [address] Molecular Genetics Report (05/30/2017 7:50 AM EST) Component Value Ref Test Analysis Performed At [facility] gist Range Method Time Signature Molecular [id number] ? Location: [facility] SRI JEFFREYCHCOCK The signing pathologist has (i) examined the relevant preparation(s) for the [facility] specimen(s) and (ii) rendered or confirmed the diagnosis(es) . HOSPITAL LABORATORY . ?Molecu lar Genetics RESULTS CONSULTATION CASE Outside case labeled [id number] ([id number]), collection date 05/28/2017. [facility] Tracking #: [id number] Report to: [facility] Department of Pathology [address] [place] [address] ??[id number] , , Ext [phone] Submitted for molecular testing only. ??This case has not be en reviewed in its ??entirety. SPECIMEN ANALYZED: ?? [id number] (outside [id number]) Solid Tumor Fusion Panel Analysis: ?? Examination of RNA extracted from formalin-fixed paraffin-embedded tumor tissue for gene fusion analysis. Results: ?? No Gene fusions were identified in the submitted sample. Interpretation: ?? After rev iew of the pathology report and slides, the specimen ([id number]) was selected for fusion analysis using a panel of 53 cancer related genes. Therapeutic options related to the presence or absence of mutations should be carefully assessed. ??Av ailability of other therapeutic indications and clinical trials may be possible. Consider presenting at the [facility] Molecular Tumor Board for further interpretation and discussion by contacting ?? [email or web address] Methods: ?? Solid Tumor Fusi on Panel ??- Hematoxylin and eosin (H ??&E) stained slides for each sample were review ed by an attending pathologist to determine the tumor area and estimate the perce nt of neoplastic cells present in the tissue. ??RNA was extracted from macro-dissec jaguar FFPE tissue sections using the AllPrep DNA/RNA FFPE Kit. ??RNA was converted to cDNA, and sample quality was assessed using a qPCR assay, requiring a minimum cycle t hreshold (Ct) value of 29. ??Preparation of libraries was performed by a fully tr ained [facility] technologist using a clinically validated Voiceit Solid Milagro or Panel assay protocol. ??A total of five Tattoo Designer Checkpoints (QC Checkpoints ) were established: (1) QC1: pre RNA extraction, (2) QC2: RNA quantification, (3) QC3 : RNA quality, (4) QC4: library quantification, and (5) QC5: post-sequencing metrics. Sequencing was performed on an Illumina MiSeq or MiSeqDX instrument using 150bp paired-end sequencing reads with a minimum of 3.0 million sequencing reads per . RESULTS sample. ??The minimum fusio n detection limit was 5%. ??Novel fusions were confirmed using a laboratory develope d procedure. ??Sequencing reads were aligned to the hg19 reference genome build, and analyzed using the Remote Analysis ?TM Software. ??Variant were reviewed and curated u sing both peer-reviewed literature and publicly available databases. ??Sources are li sted below and in the references section of this report. http://www.mycancergenome.org https://ckb.mari.org/gene/grid https://targetedcancercare.massgeneral.org/Ub-Xvevh-Gbgyr.as px The 53 genes assessed by the Solid Tumor Fusion assay include: ? AKT3, ALK, VIWPLN96, ROWDY, BRAF, BRD3, BRD4, EGFR , ERG, ESR1, ETV1, ETV4, ETV5, ETV6, EWSR1, FGFR1, FRFR2, FGFR3, FGR, INSR, MAML2, MA ST1, MAST2, MET, MSMB, MUSK, MYB, NOTCH1, NOTCH2, NRG1, NTRK1, NTRK2, NTRK3, NUMBL, NUTM1, PDGFRA, PDGFRB, PIK3CA, PKN1, PPARG, PRKCA, PRKCB, RAF1, RELA, RET, ROS 1, RSPO2, RSPO3, TERT, TFE3, TFEB, THADA, and TMPRSS2. While DNA testing is very ac curate, rare diagnostic errors due to various pre- and post-analytical variables d o occur. This test was developed and its performance characteristics determined by the Clinical Genomics and Advanced Technology ? (CGAT) Laboratory at [facility]. It has not been cleared or approved by the FDA. The laboratory is regulated under CLIA as qualified to perform high-complexity testing. This test is used for clinical purpos es. It should not be regarded as investigational or for research. Assay Limitations : (1) Muta tions outside the target region and below the limit of detection will not be detected. References: ?1. ??Tarik Powers, Saray Romero, Marilyn Powers. The impact of translocations and gene ? fusions on cancer causation. Nature Reviews Cancer 2007;7:233-245. ?2. ??Marilyn Powers, Derick Romero,Shai Pennington, Tarik Powers. The emerging complexity of ? gene fusions in cancer. Nature Reviews Cancer 2015 ;15:371-381. Reviewed by: Shwetha Almaraz, PhD, CGAT-Online Marketing Strategist Direc tor ?08/23/17 10:09 Electronically signed by: ??Ramiro CISNEROS, Kenia Link Verified: ??08/23/2017 ?Pathologist Performed at: ??-[facility] Dept. of Pathology, [place], [place] ?Molecu lar Genetics RESULTS CONSULTATION CASE Outside case labeled [id number] ([id number]), collection date 05/28/2017. [facility] Tracking #: [id number] Report to: [facility] Department of Pathology [address] [place], [place] [address]., [place] ??[address] , , Ext [phone] Submitted for molecular testing only. ??This case has not be en reviewed in its ??entirety. . RESULTS SPECIMEN ANALYZED: ?? [id number] (outside [place] [id number]) Analysis: ??Examination of D NA extracted from formalin-fixed paraffin-embedded tumor tissue for somatic mutation analysis. Results: ??The following gen e variants were identified in the submitted tissue: CLINICALLY ACTIONABLE VARIANTS: BRAF: ??NEGATIVE EGFR: ??NEGATIVE KRAS: ??MUTATION c.35G> T p.G12V Exon 2 PIK3CA: ??NEGATIVE OTHER DETECTED VARIANTS: N/A Interpretation: ?? After rev iew of the pathology report and slides, the specimen ([id number]) was selected for mutation analysis from a panel of 50 genes. ??The results of this test indica te that tumor cells comprising 80% of the tissue specimen analyzed were normal for ho tspots in the BRAF, EGFR, PIK3CA, and 46 other genes. 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 The G12V mutation suggests that this patient may not benefit from anti-EGFR therapy. Recent studies have shown that patients wi th G12V or G12C mutations have increased sensitivity to MEK inhibitors compared with tumors carrying other KRAS mutations (Rocco et al, 2015). ??Therapeutic option s related to the presence or absence of mutations should be carefully assessed. Avai lability of other therapeutic indications and clinical trials may be possible. These results may indicate clinical trial william crane; consider presenting at the [facility] Molecular Tumor Board for further interpreta tion and discussion by contacting ?. For additional information on clinically actionable variants, please visit the following websites: http://www.mycancergenome.org/content/disease/lung-cancer http://www.nccn.org/professionals/physician_gls/f_guidelines .asp Methods: ??Genomic DNA was e xtracted from formalin-fixed paraffin-embedded tumor tissue. DNA sequencing was performed using the 50-gene Cancer Hotspot Panel ([employer]) for each gene repo rted. ??Sequences were aligned to the hg19 (GRCh37) reference genome. ??This md whitney is designed to examine previously described and recurring somatic mutations in human tumors. ? Next-generation sequencing analysis of these genes was further confirmed by other assays during validation in our CLIA-certified laboratory. ? Normal (non-tumor) tissue from this patient has not been tested, therefore, the possibility of any detected mutations being a germline mutation cannot be ruled out. The genes assessed by the [facility] Hotspot Panel v2 include: ABL1, AKT1, ALK, APC, RO, BRAF, CDH1, CDKN2A, CSF1R, CTNNB1, EGFR, ERBB2, ERBB4, EZH2, FBXW7, FGFR1, FGFR2, . RESULTS FGFR3, FLT3, GNA11, GNAQ, G TALIA, HNF1A, HRAS, IDH1, IDH2, JAK2, JAK3, KDR, KIT, KRAS, MET, MLH1, MPL, NOTCH1, NPM 1, NRAS, PDGFRA, PIK3CA, PTEN, PTPN11, RB1, RET, SMAD4, SMARCB1, SMO, SRC, STK11, TP53, and VHL. While DNA testing is very ac curate, rare diagnostic errors due to various pre- and post-analytical variables d o occur. This test was developed and its performance characteristics determined by the Clinical Genomics and Advanced Technology ? (CGAT) Laboratory at [facility]. It has not been cleared or approved by the FDA. The laboratory is regulated under CLIA as qualified to perform high-complexity testing. This test is used for clinical purpos es. It should not be regarded as investigational or for research. References : ??Les DEGROOT, et a l. J Mol Diagn. 2012 15(2):234-247; Radha C et al. J Mol Diagn 2012 15(2):171-176; Eladio RR et al. J Mol Diagn 2012 15(5):607-622; Lamont GJ, et al. Clin Chem Lab Med May 19 013;13:1-8. Reviewed by: Shwetha Almaraz, PhD, CGAT-Online Marketing Strategist Direc tor ?06/15/17 08:05 Electronically signed by: ??Mikhail CISNEROS, Carroll Yates Verified: ??06/15/2017 ?Pathologist Performed at: ??-[facility] Dept. of Pathology, [place], [place] Specimen (Source) Anatomical Collection Method Collection Time Re ceived Time Location / / Volume Laterality 05/30/2017 7:50 AM EST Flora Bedoya MD PATHOLOGY/CYTOLOGY ORDERABLE S Performing Organization Address City/State/[place] [address] documented in this encounter Visit Diagnoses Not on filedocumented in this encounter Care Teams Intertype Operator Relationship Specialty Start Date End Date Paul Coombs III, MD PCP - General 05/10/10 05/31/17 [address] [place] [address] documented as of this encounter
--- OUTSIDE RECORDS SUMMARY | 2022-01-19 07:41 | XMS_ITS | Encounter Summary ---
:1950 [place] [address] Care Team Providers Name Role Phone Malvin ZIEGLER MD, Paul Marcum Primary Care Provider [phone] Encounter Details Date Type Department Care Team Description 05/22/2017 Hospital Encounter Radiology Library at [place], Otf Link MD [facility] [place] [address] [place] [address] [phone] (Wo rk) Social History Tobacco Use Types [...] Office Visit Hematology and Oncology Loan Burton, NOCTURNIST PHYSICIAN [facility] HEMATOLOGY/[place] [address] 01/19/2022 Infusion Hematology and Oncology Canc eled (F-ARIA CANCEL) 01/25/2022 Hospital Gastroenterology Jose Clark MD [facility] [place] [address] 01/25/2022 Surgery Gastroenterology Jsoe Clark EGD, LOLA Yates MD ENDOSCOPY [facility] [place] [address] 01/26/2022 Office Visit Hematology and Oncology Fabian Cameron MD [facility] DR HEMATOLOGY/[place] [address] Loan Burton APRN [facility] HEMATOLOGY/[place] [address] 01/26/2022 Infusion Hematology and Oncology 02/02/2022 Office Visit Hematology and Oncology Fabian Cameron MD [facility] DR HEMATOLOGY/[place] [address] 02/02/2022 Infusion Hematology and Oncology 02/22/2022 Telephone Hematology and Oncology Prema, Siena Samayoa, MUKUND [facility] [address]IVE [place] [address] Scheduled Procedures Name Priority Associated Diagnoses Date/Time EGD, UPPER GI ENDOSCOPY EGD with stent vs 2021 12:00 PM EDT cryotherapy. documented as of this encounter Procedures Procedure Name Priority Date/Time Associated Diagnosis Comme nts FILM LIBRARY Routine 05/22/2017 12:00 AM Results for this STORAGE ONLY EST procedure are i n NUCLEAR MEDICINE the results section. documented in this encounter Results Film Library- Storage Only nuclear medicine (05/22/2017 12:00 AM EST) Specimen (Source) Anatomical Location Collection Method / Collectio n Time Received Time / Laterality Volume Narrative DH RAD - 06/06/2017 7:59 PM EST This exam is for storage only and is aut o-finalizing. Otf Jose MD IMG FILM LIBRARY ORDERABLES Performing Organization Address City/State/ZIP Code Phon e Number DH RAD RAD [place], [place] documented in this encounter Visit Diagnoses Not on filedocumented in this encounter Care Teams Hose Inspector Relationship Specialty Start Date End Date Paul Coombs III, MD PCP - General 05/10/10 05/31/17 [address] [place] [address] documented as of this encounter
--- OUTSIDE RECORDS SUMMARY | 2022-01-19 07:41 | XMS_ITS | Encounter Summary ---
:1950 [place] [address] Care Team Providers Name Role Phone Malvin ZIEGLER MD, Paul Marcum Primary Care Provider [phone] Encounter Details Date Type Department Care Team Description 05/04/2017 Hospital Encounter Radiology Library at [place], Otf Link MD [facility] [place] [address] [place] [address] [phone] (Wo rk) Social History Tobacco Use Types [...] Office Visit Hematology and Oncology Loan Burton, GUIDEMAN [facility] HEMATOLOGY/[place] [address] 01/19/2022 Infusion Hematology and Oncology Canc eled (F-ARIA CANCEL) 01/25/2022 Hospital Gastroenterology Jose Clark MD [facility] [place] [address] 01/25/2022 Surgery Gastroenterology Jose Clark EGD, LOLA Yates MD ENDOSCOPY [facility] [place] [address] 01/26/2022 Office Visit Hematology and Oncology Fabian Cameron MD [facility] DR HEMATOLOGY/[place] [address] Loan Burton APRN [facility] HEMATOLOGY/[place] [address] 01/26/2022 Infusion Hematology and Oncology 02/02/2022 Office Visit Hematology and Oncology Fabian Cameron MD [facility] DR HEMATOLOGY/[place] [address] 02/02/2022 Infusion Hematology and Oncology 02/22/2022 Telephone Hematology and Oncology Prema, Siena Samayoa, RD [facility] DRIVE [place] [address] Scheduled Procedures Name Priority Associated Diagnoses Date/Time EGD, UPPER GI ENDOSCOPY EGD with stent vs 2021 12:00 PM EDT cryotherapy. documented as of this encounter Procedures Procedure Name Priority Date/Time Associated Diagnosis Comme nts FILM LIBRARY Routine 05/04/2017 12:05 AM Results for this STORAGE ONLY CT EST procedure ar e in CHEST the results section. documented in this encounter Results Film Library- Storage Only CT Chest (05/04/2017 12:05 AM EST) Specimen (Source) Anatomical Location Collection Method / Collectio n Time Received Time / Laterality Volume Narrative [facility] - 05/31/2017 12:53 PM EST This exam is for storage only and is aut o-finalizing. Otf Jose MD IMG FILM LIBRARY ORDERABLES Performing Organization Address City/State/ZIP Code Phon e Number [facility] [place], [place] documented in this encounter Visit Diagnoses Not on filedocumented in this encounter Care Teams Web Content Coordinator Relationship Specialty Start Date End Date Paul Coombs III, MD PCP - General 05/10/10 05/31/17 [address] [place] [address] documented as of this encounter
[2022-01-19] MEDS: Normal Saline Flush 10 ML SYR IVP (07:46)
--- OUTSIDE RECORDS SUMMARY | 2022-01-19 07:47 | XMS_ITS | Encounter Summary ---
:1950 Author Organization [facility] rs Address [address] [place] [id number] Support Name Relationship Address Phone YUSRA AUGUSTE Unavailable [address] [place] [address] YUSRA AUGUSTE Unavailable [address] [place] [address] CLAY MOSLEY Unavailable Unavailable SJ SANTACRUZ Unavailable Unavailable Insurance Providers: All historical and current Section Date Range: From patient's date of to the date document was created.This section includes the names of all active insurance providers for the patient. Insurance Type of Plan Start of End of Group Member Insurance Policy P atient's Provider Coverage Name Policy Policy Number ID Provider's Abarca's Relationship Coverage Coverage Telephone Name to Policy Number Abarca MEDICARE MEDICARE PART Jun 18, PART A [id number] DO KALYANI PATIENT (WNR) (M) A 2016 13A 1 U[place]AS MEDICARE MEDICARE PART Jun 18, PART B [id number] KALYANIDO PATIENT (WNR) (M) B 2016 13A 1 LAS MEDICARE MEDICARE PART Jun 18, PART A [id number] KALYANI ,DO PATIENT (WNR) (M) A 2017 VH81 2 LAS MEDICARE MEDICARE PART Jun 18, PART B [id number] KALYANIDO PATIENT (WNR) (M) B 2017 VH81 2 LAS UNITED MEDICARE MCR(W Jun 18 [id number] Luz AUGUSTE PATIENT HEALTHCARE ADVANTAGE NR) 2021 37 0 [facility] (WNR) Selected Encounter This section includes the information on record at [place] for the Encounter. Date/Time Encounter Type Encounter Description Reason Provider Source May 17, 2021 09:54 Outpatient Encounter ADMIN PAT LILIAM AM (DONALD) IHYao Encounter Template Text not used by [place] Plan of Treatment: Future Appointments (+ 6 months) and Future Tests (+/- 45 days) The Plan of Treatment section includes future care activities for the patient from all [place] treatmentfacilities. This section includes future appointments and future orders which are active, pending orscheduled.Future Appointments This section includes appointments that were scheduled to occur 6 months from the date of the Encounter, up to a maximum of 20 appointments. The data comes from all [place] treatment facilities. Appointment Date/Time Appointment Type Appointment Facili ty Name May 23, 2021 10:00 AM AMBULATORY [place]IC[place] [facility] May 23, 2021 11:30 AM AMBULATORY - MEDICINE [place] [facility] Jun 09, 2021 08:00 AM AMBULATORY - NONE [place] [facility] Jun 13, 2021 09:00 AM AMBULATORY - NONE [place] [facility] Jun 14, 2021 08:30 AM AMBUL[place]ORY - [place]GERY [place] [facility] Jul 01, 2021 08:30 AM [facility] Jul 18, 2021 09:00 AM AMBULATORY - [place]ICINE [place] [facility] Jul 18, 2021 10:30 AM AMBULATORY - MEDICINE [place] [facility] Aug 03, 2021 08:00 AM AMBULATORY - NONE [place] [facility] Sep 05, 2021 08:00 AM AMBULATORY - SURGERY [place] [facility] Sep 19, 2021 08:00 AM [facility] October 18, 2021 02:00 PM AM[facility] - MEDICINE [facility] Lab Results: +/- 30 days of the encounter This section includes the Chemistry and Hematology Lab Results on record with [place] for the patient. Radiology Reports and Pathology Reports are provided separately, in subsequent sections.Lab Results This section contains the Chemistry/Hematology Results that were resulted 30 days before or 30 daysafter the date of the Encounter. Date/Time Source Result Type Result - Unit Interpretation Reference Range Comment May 16, 2021 09:44 [facility] THYROID TESTING Specimen Type: SERUM AM CASCADE Comment: Tests performed on aitainment (405) SN:[id number] TSH within normal limits. Reflex testing not required. Ordering Provid er: ISHMAEL CATES Report Released Date/Time: May 16, 2021 09:42 AM Reporting Lab: [facility] [address] [address] Performing Lab: [facility] [address] [address] TSH 1.08 0.35-5.00 REFLEX TESTING comment May 16, 2021 09:43 [facility] LIPOPROTEIN CHOLESTEROL S pecimen Type: PLASMA AM FRACT. PANEL Comment: Tests performed on Pham Medypal (405) SN:[id number] Ordering Provid er: ISHMAEL CATES Report Released Date/Time: May 16, 2021 09:42 AM Reporting Lab: [facility] [address] [address] Performing Lab: [facility] [address] [address] CHOLESTEROL 208 H 0-199 TRIGLYCERIDE 176 H 0-149 HDL CHOLESTEROL 43 >40 LDL CHOLESTEROL (CALC) 130 H 0-129 May 16, 2021 09:43 AM [facility] LIVER PROFILE Specim en Type: PLASMA Comment: Tests performed on Pham Carpet Cleaning Technician (405) SN:[id number] Ordering Provid er: ISHMAEL CATES Report Released Date/Time: May 16, 2021 09:42 AM Reporting Lab[facility] [address] [address] [address] Performing Lab: [facility] [address] [address] PROTEIN, TOTAL 8.0 6.0-8.5 ALBUMIN 3.9 3.2-5.0 BILIRUBIN, TOTAL 0.6 0.2-1.2 ALKALINE PHOSPHATASE 102 40-150 ALT(SGPT) 18 7-52 AST(SGOT) 15 5-34 May 16, 2021 [facility] P4 GLU,BUN,CREAT,LYTES,CA Sp ecimen Type: PLASMA 09:43 AM Comment: Tests performed on Pham Carpet Cleaning Technician (405) SN:[id number] Ordering Provid er: ISHMAEL CATES Report Released Date/Time: May 16, 2021 09:42 AM Reporting Lab: [facility] [address] [address] Performing Lab: [facility] [address] [facility] [address] UREA NITROGEN 18 7-25 SODIUM 134 L 135-145 POTASSIUM 4.9 3.5-5.0 CHLORIDE 99 L 100-110 CARBON DIOXIDE 21 20-30 ANION GAP 14 4-16 GLUCOSE 108 H 65-100 CREATININE 1.35 0.5-1.5 CALCIUM 9.6 8.5-10.5 eGFR 52 L >60 May 16, 2021 [facility] GLYCOHEMOGLOBIN (A1C ONLY) S pecimen Type: BLOOD 09:43 AM Comment: Tests performed on aitainment (405) SN:[id number] Ordering Provid er: ISHMAEL CATES Report Released Date/Time: May 16, 2021 09:42 AM Reporting Lab: [facility] [address] [address] Performing Lab: [facility] [address] [facility] [address] HEMOGLOBIN A1C 5.8 H 4.0-5.6 May 16, 2021 09:43 AM [facility] CB CBC PROFILE Specim en Type: BLOOD No comment enter ed. Ordering Provid er: ISHMAEL CATES Report Released Date/Time: May 16, 2021 09:42 AM Reporting Lab: [facility] [address] [address] Performing Lab: [facility] [address] [facility] [address] WBC 10.3 4.5-11.0 RBC 5.64 4.23-5.66 HGB 14.2 12.8-17 HEMATOCRIT 47.0 39.2-50.4 MCV 83.3 82-99 MCH 25.2 L 26.2-32.6 MCHC 30.2 L 30.8-35.1 PLT 298 140-360 MPV 8.7 L 9.2-12.4 RDW 17.3 H 12.0-16.0 LYMPH % 13.3 L 14.0-42.3 MONO % 5.9 5.1-13.7 NEUT % 78.9 H 43.7-75.8 EOS % 0.6 0.4-6.8 BASO % 0.8 0.1-2.0 IG % 0.5 0.0-0.7 NUCLEATED RED CELLS 0.0 0.0-0.0 ABSOLUTE IG 0.1 H 0-0.06 ABSOLUTE BASOPHILS 0.1 0.01-0.13 ABSOLUTE EOS. 0.1 0.03-0.44 ABSOLUTE LYMPHOCYTES 1.4 1.0-3.2 ABSOLUTE MONOCYTES 0.6 0.3-1.1 ABSOLUTE GRANULOCYTES 8.1 H 2.2-7.6 ABSOLUTE NRBC 0.00 0-0 Social History: Smoking Status (Most current) and Tobacco Use (All prior to encounter date) This section includes the most current, and the historical, smoking and tobacco-related health factors from the [place] facility where the Encounter took place.Current Smoking Status This section includes the most current smoking, or tobacco-related health factor, from the [place] facility where the Encounter took place. Date/Time Current Smoking Status Comment Facility Apr 01, 2020 01:16 PM QUIT TOBACCO USE 1-7 YEARS AGO [facility] Tobacco Use History This section includes a history of the smoking, or tobacco- related health factors, that were collected on or before the date of the Encounter. The data comes from the [place] facility where the Encounter took place. Date/Time Smoking Status/Tobacco Use Comment [facility] Mar 24, 2020 03:00 PM QUIT TOBACCO USE 1-7 YEARS AGO [facility] Feb 21, 2019 04:11 PM QUIT TOBACCO USE 1-7 YEARS AGO [facility] Feb 20, 2019 03:38 PM QUIT TOBACCO USE 1-7 YEARS AGO [facility] Feb 03, 2019 09:50 AM QUIT TOBACCO USE 1-7 YEARS AGO [facility] May 25, 2016 11:53 PM QUIT TOBACCO USE IN PAST YEAR [facility] May 23, 2016 06:57 PM QUIT TOBACCO USE > 7 YEARS AGO [facility] May 19, 2016 03:55 PM QUIT TOBACCO USE IN PAST YEAR [facility] May 19, 2016 10:29 AM QUIT TOBACCO USE 1-7 YEARS AGO [facility] May 01, 2016 07:26 PM QUIT TOBACCO USE IN PAST YEAR [facility] May 01, 2016 03:11 PM QUIT TOBACCO USE IN PAST YEAR [place] [facility] May 01, 2016 11:19 AM QUIT TOBACCO USE IN PAST YEAR [facility] [place] [facility] Mar 16, 2016 12:50 PM V1-PT DECLINES REF TO TOBACCO [facility] [place] [facility] CESS [facility] Mar 16, 2016 12:50 PM V1-PT THINKING ABOUT QUIT [facility] [place] [facility] TOBACCO USE Aug 12, 2015 08:48 AM CURRENT SMOKER [place] [facility] Encounter Notes: All associated encounter notes This section contains the clinical notes associated to the Encounter. Date/Time Encounter Note(s) Provider Source May 17, 2021 09:54 AM ADMINISTRATIVE NOTE: KATIE WALLIS [place] LOCAL TITLE: Has Admin Note [facility] STANDARD TITLE: ADMINISTRATIVE NOTE DATE OF NOTE: MAY 17, 2021@09:54 ENTRY DATE: MAY 17, 2021@09:54:37 AUTHOR: KATIE WALLIS EXP COSIGNER: URGENCY: STATUS: COMPLETED Reason for call Clinic Name: [facility] 1st call, Letter sent RTC Rodney Hurley MD 10/2021 - # - no res duong, not set up for [facility] but has email address sending information with appt request letter. transfer appt will need 60 mins with [facility] when negotiat caroline /emely/ KATIE WALLIS AMSA Signed: 05/17/2021 10:32
--- OUTSIDE RECORDS SUMMARY | 2022-01-19 07:47 | XMS_ITS | Encounter Summary ---
:1950 Author Organization [facility] Address [address] [place] [id number] Support Name Relationship Address Phone YUSRA AUGUSTE Unavailable [address] [facility] [place] [address] YUSRA AUGUSTE Unavailable [address] [place] [address] CLAY MOSLEY Unavailable Unavailable SJ SANTACRUZ Unavailable [...] MEDICARE MEDICARE PART Jun 18, PART A [id number] DO KALYANI PATIENT (WNR) (M) A 2016 13A 1 U[place]AS MEDICARE MEDICARE PART Jun 18, PART B [id number] KALYANIDO PATIENT (WNR) (M) B 2016 13A 1 LAS MEDICARE MEDICARE PART Jun 18, PART A [id number] KALYANIDO PATIENT (WNR) (M) A 2017 VH81 2 LAS MEDICARE MEDICARE PART Jun 18, PART B [id number] KALYANIDO PATIENT (WNR) (M) B 2016 VH81 2 U[place]AS UNITED MEDICARE MCR(W Jun 18 [id number] Luz AUGUSTE PATIENT HEALTHCARE ADVANTAGE NR) 2021 37 0 [facility] (WNR) Selected Encounter This section includes the information on record at [place] for the Encounter. Date/Time Encounter Type Encounter Reason Provider Source Description Feb 24, 2021 OFFICE O/P EST OPTOMETRY ICD-10-CM Z96.1 CONCHITA BENAVIDEZ 09:30 AM MOD 30-39 MIN Presence of intraocular lens with Provider Comments: Presence of Intraocular Lens (ICD-10-CM Z96.1) IHE Encounter Template Text not used by VA Assessments - Encounter Diagnoses This section includes the primary and secondary diagnoses documented for the Encounter. 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 This section includes future appointments and future orders which are active, pending orscheduled.Future Appointments This section includes appointments that were scheduled to occur 6 months from the date of the Encounter, up to a maximum of 20 appointments. The data comes from all [place] treatment facilities. Appointment Date/Time Appointment Type Appointment Facili ty Name Mar 11, 2021 10:00 AM AMBULATORY - [place]GERY [place] [facility] May 10, 2021 08:15 AM AMBULATORY - NONE [facility] May 16, 2021 08:30 AM AMBULATORY - MEDICINE [facility] May 23, 2021 10:00 AM [facility] May 23, 2021 11:30 AM AMBULATORY - MEDICINE [facility] [facility] Jun 09, 2021 08:00 AM AMBULATORY - NONE CAREY DUFFT [facility] Jun 13, 2021 09:00 AM AMBULATORY - NONE [facility]AREY DOYLE T [facility] Jun 14, 2021 08:30 AM AMBULATORY - [place]GERY [facility] [facility] Jul 01, 2021 08:30 AM [facility]ORY - [facility]INE [facility] Jul 18, 2021 09:00 AM AMBULATORY - MEDICINE [place] [facility] Jul 18, 2021 10:30 AM AMBULATORY - MEDICINE CAREY DOYLE T [facility] Aug 03, 2021 08:00 AM AMBULATORY - NONE CAREY DOYLE T [facility] Social History: Smoking Status (Most current) and Tobacco Use (All prior to encounter date) This section includes the most current, and the historical, smoking and tobacco-related health factors from the [place] facility where the Encounter took place.Current Smoking Status This section includes the most current smoking, or tobacco-related health factor, from the [place] facility where the Encounter took place. Date/Time Current Smoking Status Comment Facility Apr 01, 2020 01:16 PM QUIT TOBACCO USE 1-7 YEARS AGO CAREY DOYLE [facility] Tobacco Use History This section includes a history of the smoking, or tobacco- related health factors, that were collected on or before the date of the Encounter. The data comes from the [place] facility where the Encounter took place. Date/Time Smoking Status/Tobacco Use Comment [facility] Mar 24, 2020 03:00 PM QUIT TOBACCO USE 1-7 YEARS AGO CAREY DOYLE T [facility] Feb 21, 2019 04:11 PM QUIT TOBACCO USE 1-7 YEARS AGO CAREY DOYLE T [facility] Feb 20, 2019 03:38 PM QUIT TOBACCO USE 1-7 YEARS AGO CAREY DOYLE T [facility] Feb 03, 2019 09:50 AM QUIT TOBACCO USE 1-7 YEARS AGO CAREY DOYLE T [facility] May 25, 2016 11:53 PM QUIT TOBACCO USE IN PAST YEAR CAREY DOYLE T [facility] May 23, 2016 06:57 PM QUIT TOBACCO USE > 7 YEARS AGO [facility] May 19, 2016 03:55 PM QUIT TOBACCO USE IN PAST YEAR [facility] May 19, 2016 10:29 AM QUIT TOBACCO USE 1-7 YEARS AGO CAREY DOYLE T [facility] May 01, 2016 07:26 PM QUIT TOBACCO USE IN PAST YEAR CAREY MONTOYA [facility] May 01, 2016 03:11 PM QUIT TOBACCO USE IN PAST YEAR CAREY DOYLE T [facility] May 01, 2016 11:19 AM QUIT TOBACCO USE IN PAST YEAR CAREY DOYLE T [facility] Mar 16, 2016 12:50 PM V1-PT DECLINES REF TO TOBACCO CAREY DOYLE [facility] CESS [facility] Mar 16, 2016 12:50 PM V1-PT THINKING ABOUT QUIT CAREY DOYLE [facility] TOBACCO USE Aug 12, 2015 08:48 AM CURRENT SMOKER CAREY Yates [place] [facility] Encounter Notes: All associated encounter notes This section contains the clinical notes associated to the Encounter. Date/Time Encounter Note(s) Provider Source Feb 24, 2021 09:34 AM EYE CONSULT: GERI MARCUS LOCAL TITLE: Eye Clinic Imaging Note [facility] STANDARD TITLE: EYE CONSULT DATE OF NOTE: FEB 24, 2021@09:34 ENTRY DATE: FEB 24, 2021@09:34:38 AUTHOR: GERI MARCUS EXP COSIGNER: URGENCY: STATUS: COMPLETED This consult note title is used for capturing an ophthalmic diagnostic medical image. Please see other Eye notes in CPR S for additional clinical information and interpretation. /emely/ GERI Hood [place] Signed: 02/24/2021 09:34 Feb 24, 2021 09:24 AM EYE E & M NOTE: CONCHITA BENAVIDEZ LOCAL TITLE: Eye Resident Note/Exam Template [facility] STANDARD TITLE: EYE E & M NOTE DATE OF NOTE: FEB 24, 2021@09:24 ENTRY DATE: FEB 24, 2021@09:24:23 AUTHOR: MARTIN TORRES EXP COSIGNER: CONCHITA GARCIA URGENCY: STATUS: COMPLETED Eye Resident Note/Exam Template Has ADDENDA NEW OR ESTABLISHED PATIENT OPHTHALMIC EX AMINATION CONSULTATION, SPECIALTY CODE OR E/M SERVICE Active Outpatient Medications (excluding Supplie s): Active Outpatient Medications Status 1) ALBUTEROL 90MCG (CFC-F) 200D ORAL INHL INHALE 2 PUFFS ACTIVE BY MOUTH FOUR TIMES DAILY NEEDED FOR BREATHI NG 2) AMLODIPINE BESYLATE 5MG TAB TAKE ONE TABLET B Y MOUTH ACTIVE EVERY DAY FOR BLOOD PRESSURE/HEART, DO NOT TAKE WITH GRAPEFRUIT JUICE 3) AMMONIUM LACTATE 12% LOTION APPLY THIN FILM T OPICALLY ACTIVE EVERY DAY FOR DRY IRRITATED SKIN ON ARMS AND LE GS 4) CLOBETASOL PROPIONATE 0.05% TOP SOLN APPLY SM ALL ACTIVE AMOUNT TOPICALLY TWICE A DAY USE DAILY FOR TWO WEEKS. IF IMPROVEMENT, THEN ONLY USE ON WEEKEND S (SUNDAY/SUNDAY) 5) DICLOFENAC NA 1% TOP GEL APPLY 4 GRAMS TO LOW ER ACTIVE EXTREMITIES TOPICALLY FOUR TIMES DAILY NEEDE D FOR PAIN/INFLAMMATION. *DO NOT EXCEED 16 GRAMS DAILY TO ANY JOINT OF LOWER EXTREMITIES. DO NOT EXCEED 8 GRAMS DAILY TO ANY JOINT OF UPPER EXTREMITIES. DO NOT EXCEED TOTAL DOSE OF 32 GRA MS DAILY OVER ALL JOINTS. 6) HYDROPHILIC (EQV EUCERIN) TOP CREAM APPLY SMA LL ACTIVE AMOUNT TOPICALLY NEEDED 7) LOSARTAN 25MG TAB TAKE ONE-HALF TABLET BY HANNAH TH EVERY ACTIVE DAY FOR BLOOD PRESSURE/HEART 8) METFORMIN HCL 500MG 24HR SA TAB TAKE ONE TABL ET BY ACTIVE MOUTH EVERY DAY WITH A MEAL FOR DIABETES 9) OLODATEROL/TIOTROP 2.5MCG/ACTUAT 60D INH INHA LE 2 ACTIVE PUFFS BY MOUTH EVERY DAY FOR BREATHING 10) SALICYLIC ACID 3% SHAMPOO SHAMPOO SMALL AMOU NT ACTIVE TOPICALLY ON MONDAYS, WEDNESDAYS AND FRIDAYS ; MASSAGE INTO SCALP, LET SIT 10 MIN AND RINSE 11) SERTRALINE HCL 50MG TAB TAKE THREE TABLETS B Y MOUTH ACTIVE EVERY DAY FOR DEPRESSION OR ANXIETY 12) TURMERIC CURCUMIN COMPLEX 500MG CAP/TAB TAKE ONE ACTIVE CAP/TAB BY MOUTH TWICE A DAY Allergies/Adverse Reactions: LISINOPRIL HGB A1C: 6.0 (09/08/20 09:35) GLU: 110 (09/08/20 09:35) BUN: 24 (09/08/20 09:35) B/P: 131/70 (12/13/2020 09:43) BODY MASS INDEX - SEP 08, 2020@08:22:03 41.9 Active problems - Computerized Problem List is t he source for the followin. Low back pain 2. Joint pain 3. Primary malignant neoplasm of lung 4. Morbid obesity 5. Benign essential hypertension 6. Chronic obstructive lung disease 70 year old WHITE MALE, established patient CHIEF COMPLAINT AND HISTORY OF PRESENT ILLNESS ( HPI): Patient here for CEE and RNFL OCT Reports slight blur near > distance OU without g lasses Reports dryness OU -Not currently using ATs frequently Denies: new f/f, pain, JIN, diplopia Neurological and Psychiatric Status: Orientation : Oriented to person, time, place Mood and Affect: normal, no agitation, no anxiety, no depressive behaviors in clinic OCULAR HISTORY: 1. Glaucoma suspect - secondary to asymmetric ON H cupping OS>OD, no family history, borderline IOPs 2. Cataracts - OU 3. Hypertensive angiopathy - OU 4. Blepharitis 5.Refractive error VISUAL ACUITY (with correction) OD: 20/20-2 PH: OS: 20/20 PH: Autorefraction OD: -0.50 -0.50 x018 OS: -0.25 -0.75 x068 REFRACTION and BEST-CORRECTED VISION OD: -0.50 -1.00 x175 20/20 OS: plano -1.00 x072 20/20 Add: +2.50 20/20 OCULAR MOTILITY (EOM): Full without dipl opia or pain OU, pursuits and saccades intact OU CONFRONTATION VIS GOMEZ: full to finger countin g OD & OS PUPILS: PERRL, NO APD PRESENT OU ORBITS/ADNEXA: Normal OU ANTERIOR SEGMENT AND SLIT LAMP EXAM: Lids/Lashes: OD: 1+ MGD OS: 1+ MGD Scleral and Conjunctiva: OD: white and quiet OS: white and quiet Cornea: s/p CE OU OD: clear without staining OS: clear without staining Anterior Chamber: clear and free of cells or fl are OU [place] Angle estimation: OD: 4x4 OS: 4x4 Iris: normal/intact OU/ no neovascularization p resent ou Tonometry: iCare OD 14 OS 15 Time: 0936 DILATION OU: PATIENT EDUCATED ON SIDE EFFECTS OF DILATION PRIOR TO DROP INSTILLATION. SIDE EFFECT DISCUSSED INCLUDE LIGH T SENSITIVITY AND BLURRED VISION AT NEAR. 1 gtt 1% Tropicamide 1 gtt 2.5% Phenylephrine Time: 0937 INTERNAL EYE EXAMINATION BY SLIT LAMP, FUNDUSCOP Y AND BINOCULAR INDIRECT OPHTHALMOSCOPE: Lens: OD: PCIOL well centered and clear OS: PCIOL well centered and clear Vitreous: OD: syneresis present OS: syneresis present Nerve: RIM INTACT AND WITHOUT FOCAL DEFECTS OR PALLOR OU OD C/D: 0.30r, no notching/hemes OS C/D: 0.35v/0.40h, deep, no notching/hemes Macula: Even pigment, NO macular edema OU Vessels: tr tortuosity OU Mid-peripheral and Peripheral Retina: Flat and intact 360 degrees OU Glaucoma Summary - No longer Glaucoma suspect as of 02/24/2021 Family History: unknown Pre-treatment IOP (intra-ocular pressure) or ran ge OD OS Goal IOP (not established) OD OS PACHY 10-25-15 OD 595 SD 3.9 OS 589 SD 2.2 Gonioscopy (date:) 09-08-16 OD CBB 360' OS CBB 360' Ocular surgeries and dates OD OS Date IOP (GAT unless stated) MEDICATIONS/COMMENT S/TESTING 07-27-15 22,22 @0824H DFE 10-25-15 20,21 @0814H [facility] HVF 24-2, HRT, PACHY 09-08-16 19,19 @0900H HVF 24-2, OCTRNFL, GONIO 02/24/21 14,15 @0961 [facility] CEE, RNFL SPECIAL TESTS: Ocular Coherence Tomography/Optic Nerve (OCT) Interpretation and Report Reason for Test: POAG Suspect Technical Acquisition Quality: 30/25 OD: g109, traction, WNL, no thinning 360 OS: g112, traction, WNL, no thinning 360 Progression or Change from Baseline: stable OU ASSESSMENT/PLAN 1. Pseudophakia OU -Stable and well-centered OU //Patient educated on findin gs. No intervention indicated at this time. Continue to monitor. 2. Dry eye syndrome OU - Signs=symptoms // Patient educated on findi ngs. Continue artificial tears prn OU - reordered to be sent to patient. Recommen d warm compresses QD x 5-10minutes. Monitor at next visitor sooner with changes 3. Glaucoma suspect, low risk - 2' asymmetric ON H cupping OS>OD -no family history -IOPs today 1415 on no meds -OCT today (02/23/21): No thinning, all quadrant s OU; stable to previous -HVF 24-2 previous: OD superior paracent ral defect that does not match OCT and OS few scattered defects; no glaucomatous patter n OU -Gonio today open in all quadrants to CBB OU //Edu pt on findings - no further interv ention warranted at this time. Patient NOT glaucoma suspect at this time. Monitor with further testing prn 4. Hypertensive angiopathy, OU -Secondary to history of smoking and HTN -stable today //Edu pt on importance of good BP/cholesterol co ntrol as well as continued care/management with PCP. Monitor 5. Refractive error w/ presbyopia OU //Pt ed on condition. Dispensed new SRx. Monitor RTC ORDER: 1 year DFE PATIENT EDUCATION: as above RESIDENT SUPERVISION: I, Martin Torres, have seen and discussed this patient with my supervising doctor. (x) My supervising doctor was present for and/o r directly examined this patient. (x) My supervising doctor taisha grees with my assessment and plan and is identified as a cosigner on this note. Note complete (xx) Total time spent during this encounter, includin g [id number] and non-face time , was 35 minutes /emely/ Conchita Benavidez OD [facility] Signed: 02/24/2021 10:46 for MARTIN TORRES O.D. Optometry Resident /charmaine Benavidez OD [facility] Cosigned: 02/24/2021 10:46 02/24/2021 ADDENDUM STATUS: COMPLETED I have reviewed the patient's medical history an d above eye exam note. I agree with the assessment and plan. I have discussed these findings with the residen t The following tests were analyzed and reviewed b y the preceptor: [X ] OPTICAL COHERENCE TOMOGRAPHY (OCT) /charmaine Benavidez OD [facility] Signed: 02/24/2021 10:47
--- OUTSIDE RECORDS SUMMARY | 2022-01-19 07:47 | XMS_ITS | Encounter Summary ---
:1950 Author Organization Department [facility] Address [address] [place] [address] Support Name Relationship Address Phone YUSRA AUGUSTE Unavailable [address] [place] [facility] [place] [address] YUSRA AUGUSTE Unavailable [address] [place] [facility] [place] [address] CLAY MOSLEY Unavailable Unavailable SJ SANTACRUZ Unavailable [...] MEDICARE MEDICARE PART Jun 18, PART A [id number] DO KALYANI PATIENT (WNR) (M) A 2016 13A 1 [place] MEDICARE MEDICARE PART Jun 18, PART B [id number] DO KALYANI PATIENT (WNR) (M) B 2016 13A 1 [place] MEDICARE MEDICARE PART Jun 18, PART A [id number] KALYANIDO PATIENT (WNR) (M) A 2017 VH81 2 [place] MEDICARE MEDICARE PART Jun 18, PART B [id number] DO KALYANI PATIENT (WNR) (M) B 2017 VH81 2 [place] UNITED MEDICARE MCR(Jun 18 [id number] Luz AUGUSTE PATIENT HEALTHCARE ADVANTAGE NR) 2021 37 0 [facility] (WNR) Selected Encounter This section includes the information on record at [place] for the Encounter. Date/Time Encounter Type Encounter Description Reason Provider Source Mar 14, 2021 04:18 Outpatient Encounter PRIMARY CARE/MEDICINE PM IHE Encounter Template Text not used by VA Plan of Treatment: Future Appointments (+ 6 months) and Future Tests (+/- 45 days) The Plan of Treatment section includes future care activities for the patient from all [place] [facility]. This section includes future appointments and future orders which are active, pending orscheduled.Future Appointments This section includes appointments that were scheduled to occur 6 months from the date of the Encounter, up to a maximum of 20 appointments. The data comes from all [place] treatment facilities. Appointment Date/Time Appointment Type Appointment Facili ty Name May 10, 2021 08:15 AM AMBULATORY - NONE [facility] May 16, 2021 08:30 AM AMBULATORY - MEDICINE [facility] May 23, 2021 10:00 AM [facility] May 23, 2021 11:30 AM [facility] Jun 09, 2021 08:00 AM AMBULATORY - NONE [place] [facility] Jun 13, 2021 09:00 [facility] Jun 14, 2021 08:30 AM [place] [place] [facility] Jul 01, 2021 08:30 AM AM[facility]ORY - [facility]ICINE [facility] Jul 18, 2021 09:00 AM [facility] Jul 18, 2021 10:30 AM [facility] Aug 03, 2021 08:00 AM AMBULATORY - NONE [place] [facility] Sep 05, 2021 08:00 AM AMBULATORY - [place]GERY [place] [facility] Social History: Smoking Status (Most current) and Tobacco Use (All prior to encounter date) This section includes the most current, and the historical, smoking and tobacco-related health factors from the [facility] facility where the Encounter took place.Current Smoking Status This section includes the most current smoking, or tobacco-related health factor, from the [place] facility where the Encounter took place. Date/Time Current Smoking Status Comment Facility Apr 01, 2020 01:16 PM QUIT TOBACCO USE 1-7 YEARS AGO [facility] Tobacco Use History This section includes a history of the smoking, or tobacco- related health factors, that were collected on or before the date of the Encounter. The data comes from the [place] facility where the Encounter took place. Date/Time Smoking Status/Tobacco Use Comment Facil ity Mar 24, 2020 03:00 PM QUIT TOBACCO USE 1-7 YEARS AGO CAREY MONTOYA [facility] Feb 21, 2019 04:11 PM QUIT TOBACCO USE 1-7 YEARS AGO CAREY DOYLE [facility] Feb 20, 2019 03:38 PM QUIT TOBACCO USE 1-7 YEARS AGO CAREY DOYLE [facility] Feb 03, 2019 09:50 AM QUIT TOBACCO USE 1-7 YEARS AGO CAREY DYOLE [facility] May 25, 2016 11:53 PM QUIT TOBACCO USE IN PAST YEAR CAREY DOYLE [facility] May 23, 2016 06:57 PM QUIT TOBACCO USE > 7 YEARS AGO CAREY DOYLE [facility] May 19, 2016 03:55 PM QUIT TOBACCO USE IN PAST YEAR CAREY [facility] May 19, 2016 10:29 AM QUIT TOBACCO USE 1-7 YEARS AGO CAREY DOYLE [facility] May 01, 2016 07:26 PM QUIT TOBACCO USE IN PAST YEAR CAREY DOYLE [facility] May 01, 2016 03:11 PM QUIT TOBACCO USE IN PAST YEAR CAREY DOYLE [facility] May 01, 2016 11:19 AM QUIT TOBACCO USE IN PAST YEAR CAREY DOYLE [facility] Mar 16, 2016 12:50 PM V1-PT DECLINES REF TO TOBACCO CAREY DOYLE [facility] CESS PRGM Mar 16, 2016 12:50 PM V1-PT THINKING ABOUT QUIT CAREY DOYLE [facility] TOBACCO USE Aug 12, 2015 08:48 AM CURRENT SMOKER CAREY Yates [facility] Encounter Notes: All associated encounter notes This section contains the clinical notes associated to the Encounter. Date/Time Encounter Note(s) Provider Source Mar 14, 2021 04:18 PM PRIMARY CARE ANNUAL EVALUATION NOTE: JULIETA MORAN [facility] LOCAL TITLE: Preventive Health Annual Review STANDARD TITLE: PRIMARY CARE ANNUAL EVALUATION N OTE DATE OF NOTE: MAR 14, 2021@16:18 ENTRY DATE: MAR 14, 2021@16:18:28 AUTHOR: JULIETA MORAN EXP COSIGNER: URGENCY: STATUS: COMPLETED Lipid Screening: Lipid profile ordered at this encounter. Hemoglobin A1C: Order for HBA1C placed. /emely/ JULIETA MORAN Signed: 03/14/2021 16:19
--- OUTSIDE RECORDS SUMMARY | 2022-01-19 07:47 | XMS_ITS | Encounter Summary ---
:1950 Author Organization [facility] Address [address] [place] [id number] Support Name Relationship Address Phone YUSRA AUGUSTE Unavailable [address] [facility] [place] [address] YUSRA AUGUSTE Unavailable [address] [facility] [place] [address] CLAY MOSLEY Unavailable Unavailable SJ SANTACRUZ Unavailable [...] MEDICARE MEDICARE PART Jun 18, PART A [id number] DO KALYANI PATIENT (WNR) (M) A 2016 13A 1 [place] MEDICARE MEDICARE PART Jun 18, PART B [id number] DO KALYANI PATIENT (WNR) (M) B 2016 13A 1 [place] MEDICARE MEDICARE PART Jun 18, PART A [id number] KALYANIDO PATIENT (WNR) (M) A 2017 VH81 2 [place] MEDICARE MEDICARE PART Jun 18, PART B [id number] DO KALYANI PATIENT (WNR) (M) B 2017 VH81 2 [place] UNITED MEDICARE MCR(Jun [id number] Luz AUGUSTE PATIENT HEALTHCARE ADVANTAGE NR) 2021 37 0 [facility] (WNR) Selected Encounter This section includes the information on record at [place] for the Encounter. Date/Time Encounter Type Encounter Reason Provider Source Description Mar 11, 2021 REPAIR & ADJUST OPTOMETRY ICD-10-CM Z46.0 CELESTINA ANSARI 10:00 AM SPECTACLES Encounter for fit/adjst of spectacles and contact lenses with Provider Comments: Encounter for Fitting and Adjustment of Spectacles and Contact Lenses IHE Encounter Template Text not used by [facility] Assessments - Encounter Diagnoses This section includes the primary and secondary diagnoses documented for the Encounter. Date/Time Primary/Secondary Diagnosis Name Provider Source Diagnosis Mar 11, 2021 PRIMARY Encounter for CELESTINA ANSARI 10:19 AM fit/adjst of [facility] spectacles and contact lenses Plan of Treatment: Future Appointments (+ 6 months) and Future Tests (+/- 45 days) The Plan of Treatment section includes future care activities for the patient from all [place] treatmentfacilities. This section includes future appointments and future orders which are active, pending orscheduled.Future Appointments This section includes appointments that were scheduled to occur 6 months from the date of the Encounter, up to a maximum of 20 appointments. The data comes from all [place] treatment facilities. Appointment Date/Time Appointment Type Appointment Facili ty Name May 10, 2021 08:15 AM AMBULATORY - NONE [facility] May 16, 2021 08:30 AM AMBULATORY - MEDICINE [facility] May 23, 2021 10:00 AM [place] [facility] May 23, 2021 11:30 AM [place] [facility] Jun 09, 2021 08:00 AM AMBULATORY - NONE [place] [facility] Jun 13, 2021 09:00 AM AMBULATORY - NONE [place] [facility] Jun 14, 2021 08:30 AM AMBULATORY - [place]GERY [place] [facility] Jul 01, 2021 08:30 AM [facility] Jul 18, 2021 09:00 AM AM[place]UL[place]ORY [place]IC[place] [facility] Jul 18, 2021 10:30 AM AMBULATORY - MEDICINE [place] [facility] Aug 03, 2021 08:00 AM AMBULATORY - NONE [place] [facility] Sep 05, 2021 08:00 AM AMBULATORY - SURGERY [place] [facility] Social History: Smoking Status (Most current) and Tobacco Use (All prior to encounter date) This section includes the most current, and the historical, smoking and tobacco-related health factors from the [place] facility where the Encounter took place.Current Smoking Status This section includes the most current smoking, or tobacco-related health factor, from the [place] facility where the Encounter took place. Date/Time Current Smoking Status Comment Facility Apr 01, 2020 01:16 PM QUIT TOBACCO USE 1-7 YEARS AGO [facility] Tobacco Use History This section includes a history of the smoking, or tobacco- related health factors, that were collected on or before the date of the Encounter. The data comes from the [place] facility where the Encounter took place. Date/Time Smoking Status/Tobacco Use Comment [facility] Mar 24, 2020 03:00 PM QUIT [...] YEAR [facility] May 01, 2016 11:19 AM QUIT TOBACCO USE IN PAST YEAR [facility] Mar 16, 2016 12:50 PM V1-PT DECLINES REF TO TOBACCO [facility] CESS [facility] Mar 16, 2016 12:50 PM V1-PT THINKING ABOUT QUIT [facility] TOBACCO USE Aug 12, 2015 08:48 AM CURRENT [facility] Encounter Notes: All associated encounter notes This section contains the clinical notes associated to the Encounter. Date/Time Encounter Note(s) Provider Source Mar 11, 2021 10:17 AM EYE NOTE: CELESTINA ANSARI [facility] LOCAL TITLE: Eye Optical Fitting Note [facility] STANDARD TITLE: EYE NOTE DATE OF NOTE: MAR 11, 2021@10:17 ENTRY DATE: MAR 11, 2021@10:17:31 AUTHOR: CELESTINA ANSARI EXP COSIGNER: URGENCY: STATUS: COMPLETED was in for repair/refit (05277) of eyegl asses. Repair/refit was made satisfactorily, was having trouble with distance vision but the glasses were sitting way too high causing distortion fro m the seg - readjusted and said MUCH BETTER - will try for 1 week and if still experiewncing issues he will gaurang for an RX check. [place] was informed that he or she may return t o the drop in clinic for fittings, repairs, and adjustments as needed. 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
--- OUTSIDE RECORDS SUMMARY | 2022-01-19 07:47 | XMS_ITS | Encounter Summary ---
:1950 Author Organization [facility] rs Address [address] [place] [id number] Support Name Relationship Address Phone YUSRA MEEK Unavailable [address] [place] [address] YUSRA MEEK Unavailable [address] [place] [address] CLAY MOSLEY Unavailable Unavailable SJ SANTACRUZ Unavailable [...] Abarca MEDICARE MEDICARE PART Jun 18, PART B [id number] DO KALYANI PATIENT (WNR) (M) B 2016 13A 1 UGLAS MEDICARE MEDICARE PART Jun 18, PART A [id number] KALYANIDO PATIENT (WNR) (M) A 2017 VH81 2 UGLAS MEDICARE MEDICARE PART Jun 18, PART A [id number] KALYANIDO PATIENT (WNR) (M) A 2016 13A 1 UGLAS MEDICARE MEDICARE PART Jun 18, PART B [id number] KALYANIDO PATIENT (WNR) (M) B 2017 VH81 2 LAS UNITED MEDICARE MCR(W Jun 18 [id number] Luz MEEK PATIENT HEALTHCARE ADVANTAGE NR) 2021 37 0 [facility] (WNR) Selected Encounter This section includes the information on record at [place] for the Encounter. Date/Time Encounter Type Encounter Reason Provider Source Description May 16, 2021 OFFICE O/P EST PRIMARY ICD-10-CM M48.062 FRANCO CATES 08:30 AM MOD 30-39 MIN CARE/MEDICINE Spinal stenosis, P lumbar region with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 with Provider Comments: Spinal stenosis of lumbar region (SNOMED CT [id number]) IHE Encounter Template Text not used by [facility] Assessments - Encounter Diagnoses This section includes the primary and secondary diagnoses documented for the Encounter. Date/Time Primary/Secondary Diagnosis Name Provider Source Diagnosis May 16, 2021 PRIMARY Spinal stenosis, ISHMAEL CATES URY 09:46 AM lumbar region with P [facility]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 May 16, 2021 SECONDARY Chronic ISHMAEL CATES 09:46 AM obstructive P [facility] pulmonary disease, unspecified May 16, 2021 SECONDARY Encounter for ALFRED CERVANTES Y 09:46 AM immunization [facility] May 16, 2021 SECONDARY Essential ISHMAEL CATES 09:46 AM (primary) [facility] hypertension May 16, 2021 SECONDARY Personal history ISHMAEL CATES URY 09:46 AM of malignant P [facility] neoplasm of bronchus and lung Plan of Treatment: Future Appointments (+ 6 months) and Future Tests (+/- 45 days) The Plan of Treatment section includes future care activities for the patient from all [place] treatmentfacilities. This section includes future appointments and future orders which are active, pending orscheduled.Future Appointments This section includes appointments that were scheduled to occur 6 months from the date of the Encounter, up to a maximum of 20 appointments. The data comes from all [place] treatment facilities. Appointment Date/Time Appointment Type Appointment Facili ty Name May 23, 2021 10:00 AM AMBULATORY - MEDICINE [facility] May 23, 2021 11:30 AM AMBULATORY - MEDICINE [facility] Jun 09, 2021 08:00 AM AMBULATORY - NONE [facility] Jun 13, 2021 09:00 AM AMBULATORY - NONE [facility] Jun 14, 2021 08:30 [facility] Jul 01, 2021 08:30 AM [facility] Jul 18, 2021 09:00 AM [facility] Jul 18, 2021 10:30 AM [facility] Aug 03, 2021 08:00 AM [facility] NONE [facility] Sep 05, 2021 08:00 AM [facility] Sep 19, 2021 08:00 AM AM[facility]ULATORY - MED[facility] October 18, 2021 02:00 PM AMBULATORY - MEDICINE [facility] Lab Results: +/- 30 days of the encounter This section includes the Chemistry and Hematology Lab Results on record with [place] for the patient. Radiology Reports and Pathology Reports are provided separately, in subsequent sections.Lab Results This section contains the Chemistry/Hematology Results that were resulted 30 days before or 30 daysafter the date of the Encounter. Date/Time Source Result Type Result - Unit Interpretation Reference Range Comment May 16, 2021 09:44 [facility] THYROID TESTING Specimen Type: SERUM AM CASCADE Comment: Tests performed on [employer] (405) SN:[id number] TSH within normal limits. Reflex testing not required. Ordering Provid er: ISHMAEL CATES Report Released Date/Time: May 16, 2021 09:42 AM Reporting Lab: [facility] [address] [facility] [address] Performing Lab: [facility] [address] [facility] [address] TSH 1.08 0.35-5.00 REFLEX TESTING comment May 16, 2021 09:43 AM [facility] LIVER PROFILE Specim en Type: PLASMA Comment: Tests performed on [employer] (405) SN:[id number] Ordering Provid er: ISHMAEL CATES Report Released Date/Time: May 16, 2021 09:42 AM Reporting Lab: [facility] [address] [facility] [address] Performing Lab: [facility] [address] [facility] [address] PROTEIN, TOTAL 8.0 6.0-8.5 ALBUMIN 3.9 3.2-5.0 BILIRUBIN, TOTAL 0.6 0.2-1.2 ALKALINE PHOSPHATASE 102 40-150 ALT(SGPT) 18 7-52 AST(SGOT) 15 5-34 May 16, 2021 [facility] P4 GLU,BUN,CREAT,LYTES,CA Sp ecimen Type: PLASMA 09:43 AM Comment: Tests performed on [employer] (405) SN:[id number] Ordering Provid er: ISHMAEL CATES Report Released Date/Time: May 16, 2021 09:42 AM Reporting Lab: [facility] [address] [facility] [address] Performing Lab: [facility] [address] [facility] [address] UREA NITROGEN 18 7-25 SODIUM 134 L 135-145 POTASSIUM 4.9 3.5-5.0 CHLORIDE 99 L 100-110 CARBON DIOXIDE 21 20-30 ANION GAP 14 4-16 GLUCOSE 108 H 65-100 CREATININE 1.35 0.5-1.5 CALCIUM 9.6 8.5-10.5 eGFR 52 L >60 May 16, 2021 09:43 [facility] LIPOPROTEIN CHOLESTEROL S pecimen Type: PLASMA AM FRACT. PANEL Comment: Tests performed on [employer] (405) SN:[id number] Ordering Provid er: ISHMAEL CATES Report Released Date/Time: May 16, 2021 09:42 AM Reporting Lab: [facility] [address] [facility] [address] Performing Lab: [facility] [address] [facility] [address] CHOLESTEROL 208 H 0-199 TRIGLYCERIDE 176 H 0-149 HDL CHOLESTEROL 43 >40 LDL CHOLESTEROL (CALC) 130 H 0-129 May 16, 2021 [facility] GLYCOHEMOGLOBIN (A1C ONLY) S pecimen Type: BLOOD 09:43 AM Comment: Tests performed on [employer] (405) SN:[id number] Ordering Provid er: ISHMAEL CATES Report Released Date/Time: May 16, 2021 09:42 AM Reporting Lab: [facility] [address] [facility] [address] Performing Lab: [facility] [address] [facility] [address] HEMOGLOBIN A1C 5.8 H 4.0-5.6 May 16, 2021 09:43 AM [facility] CBC PROFILE Specim en Type: BLOOD No comment enter ed. Ordering Provid er: ISHMAEL CATES Report Released Date/Time: May 16, 2021 09:42 AM Reporting Lab: [facility] [address] [facility] [address] Performing Lab: [facility] [address] [facility] [address] WBC 10.3 4.5-11.0 RBC 5.64 4.23-5.66 HGB [...] 8.1 H 2.2-7.6 ABSOLUTE NRBC 0.00 0-0 Vital Signs: All taken on the encounter date This section contains inpatient and outpatient Vital Signs collected on the date of the Encounter. Date/Time Temperature Pulse Blood Respiratory SP02 Pain Height Weight Amilcar dy Source Pressure Rate Mass Index May 16 128/68 2020 08:55 mm[Hg] [facility] May 16 94.6 F 100 152/85 24 /min 96 % 0 298.4 41 2020 08:17 /min mm[Hg] lb [facility] Immunizations: All administered on the encounter date This section contains immunizations associated to the Encounter. Immunization Series Date Issued Reaction Comments INFLUENZA VACCINE, QUADRIVALENT, ADJUVANTED Nov 29, 20 21 PNEUMOCOCCAL POLYSACCHARIDE PPV23 May 16, 2021 Social History: Smoking Status (Most current) and Tobacco Use (All prior to encounter date) This section includes the most current, and the historical, smoking and tobacco-related health factors from the [place] facility where the Encounter took place.Current Smoking Status This section includes the most current smoking, or tobacco-related health factor, from the [place] facility where the Encounter took place. Date/Time Current Smoking Status Comment Facility May 16, 2021 08:30 AM VA-TOBACCO FORMER USER [facility] Tobacco Use History This section includes a history of the smoking, or tobacco- related health factors, that were collected on or before the date of the Encounter. The data comes from the [place] facility where the Encounter took place. Date/Time Smoking Status/Tobacco Use Comment [facility] May 16, 2021 08:30 AM VA-TOBACCO QUIT 5 TO < 15 YRS [facility] Mar 05, 2020 09:00 AM VA-TOBACCO FORMER USER [facility] Mar 05, 2020 09:00 AM VA-TOBACCO QUIT 5 TO < 15 YRS [facility] May 23, 2018 09:30 AM VA-TOBACCO FORMER USER [facility] May 23, 2018 09:30 AM VA-TOBACCO QUIT 1 TO < 5 YRS [facility] Encounter Notes: All associated encounter notes This section contains the clinical notes associated to the Encounter. Date/Time Encounter Note(s) Provider Source May 17, 2021 09:15 LETTERS: ISHMAEL CATES [facility] TITLE: Letter to Patient [facility] TITLE: LETTERS DATE OF NOTE: MAY 17, 2021@09:15 ENTRY DATE: MAY 17, 2021@09:15:45 AUTHOR: ISHMAEL CATES EXP COSIGNER: URGENCY: STATUS: COMPLETED Letter to Patient - [place] Has ADDENDA * MAY 17, 2021 MR. LUCAS MEEK [address] [place], [place] [address] Dear Mr. Meek, Your lab results are as follows: NORMAL: Thyroid function liver function [id number] screening-great on current metfor min ABNORMAL: -slight decrease in kidney function-kidneys are working well, please stay hydrated -cholesterol/triglycerides-mildly elevated/stabl e-try to avoid foods with fructose or corn syrup listed in the ingrediants -complete blood count-mildly abnormal, appears s table, needs to be re-checked at your next visit Please don't hesitate to call if you have any qu estions or concerns, . Sincerely, ISHMAEL CATES DNP, [facility] NURSE PRACTITIONER [place] [facility] [address] [place] [address] 05/17/2021 ADDENDUM STATUS: COMPLETED please send lab letter with a copy of the result s to the patient. thnx /emely/ ISHMAEL CATES DNP, [facility] NURSE PRACTITIONER Signed: 05/17/2021 09:21 Receipt Acknowledged By: * AWAITING SIGNATURE * GURPREETSORENSILVANA K May 16, 2021 08:38 PRIMARY CARE NOTE: ISHMAEL CATES [facility] LOCAL TITLE: Primary Care Clinic Note STANDARD TITLE: PRIMARY CARE NOTE DATE OF NOTE: MAY 16, 2021@08:38 ENTRY DATE: MAY 16, 2021@08:38:39 AUTHOR: ISHMAEL CATES EXP COSIGNER: URGENCY: STATUS: COMPLETED LUCAS EMEK ASSESSMENT/PLAN 1. lung cancer- in remission-has PETscan 09/04/20 -imp stable post therapy appearance of right hemithorax wi3th prominent v olume loss and retrax of mediasinum. No obious evidence of recurrent tumo r on unenhanced scan; stable right adrenal nodules pt continues to have sob with exertion-not alexander r or worse recommend pulm rehab-pt declined for now back pain interferes with walking -[employer]PER[employer]-Dr. Vallejo no longer in [place] Plan: pulm consult request placed for [facility] ONC f/u consult placed for Curtis Guevara-due for annual f/u 2. SOB/COPD-no change in status; cont with prese nt inhalers enc to use albuterol prn had walk test about a year ago rec walk test-pt declined at present plan: est care with new pulm at [facility] 3. Hx. irreg HR-due to sob with exertion- Plan: order nuc stress and echo/ekg -ordered for [facility]-reviewed 10/2020 result, no perf/ischem changes noted 4. depression-has noted some increase in his dep ression, denies SI, but does feel down at time. declined MH counseling; under stand availability increase sertraline to 150 mg/day 5. HTN-normotensive today cont amlodipine/losartan 6. low back pain, mult joint pain-has psoriasis, used to be followed by rheum has not been evaluated since dx/treatment of jerald g cancer; has a few psoriatic lesions scatterd, mostly upper trunk ant/post plan: CC rheum chiro MRI with sedation 7. low back pain, hx of back surg, open MRI resu lts -did not come back yet, waiting to obtain -has had pain clinic/epidural in the past with o ne week of relief -has tried Bio-wave treatment -no relief -no relief with chiropractor plan: MRI notes severe spinal stenosis/mod/sever e foraminal stenosis [facility] neurosurg consult placed 8. obesity/elevated HgA1c -has lost 10# -cont low dose metformin RTC 6 months-new provider-will do annual labs to day * Cc: my back has been botheri ng me-I still cannot do much of anything because of my back Immunizations:Up to date []pneu and flu today Smoking [] yes [x] NO 1/2 pack a day quit Alcohol [] yes [x] no [] quit with smoking Depression screen: [x]neg []pos- Dental Exam-n/a Vision:has appt sched in May 2021 HPI: 70 yo w/hx of Stage III lung cancer ,COPD; morbid obesity, psoriatic arthritis and hypertension. Amy durant completed chemoradiation therapy at [facility] and is currently in remission. not sure when next scan yury be scheduled Active problems - Computerized Problem List is t he source for the followin. Low back pain 2. Joint pain 3. Primary malignant neoplasm of lung 4. Morbid obesity 5. Benign essential hypertension 6. Chronic obstructive lung disease OTHER PMH/PSH: hx of right lung ca; treated with chemo/rad-on a nnual f/u and imaging discectomy lower back, no fusion many yrs ago s/p diverticulits with perf of sm colon 05/25/2016 GI/ID note: 65yo Male s/p low anterior resection for sigmoid stricture secondary to diverticulitis. Pelvic abscess noted and debride d intra-op. Cultures show strep bovis and enterococcus faecalis. 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 IF IMPROVEMENT, THEN ONLY USE ON WEEKEND S (SUNDAY/SUNDAY) 6) HYDROPHILIC (EQV EUCERIN) TOP CREAM APPLY [...] ACTIVE CAP/TAB BY MOUTH TWICE A DAY ALLERGIES: LISINOPRIL ROS: Constitutional: No fever, fatigue, unexpected we ight change Resp: No cough, wheezing Cardiac: No chest pain, edema, no increased dysp dannielle on exertion GI: No heartburn, nausea, change in bowels, abdo carlos pain Musculoskeletal: No new joint pain or weakness.c ont severe low back pain, interfering with activities Neurologic: No headache, dizziness OBJ: BP:152/85 (05/16/2021 08:17) HR:100 (05/16/2021 08:17) WT:298.4 lb [135.6 kg] (05/16/2021 08:17) HT: 72 in [182.9 cm] (03/05/2019 11:48) BMI: BODY MASS INDEX - NO HEIGHTS FOUND Pain: 0 (05/16/2021 08:17) R:24 (05/16/2021 08:17) SaO2:05/16/21 @ 0817 PULSE OXIMETRY: 96 T:94.6 F [34.8 C] (05/16/2021 08:17) GENERAL: Well-appearing, comfortable. HEENT: Conjunctiva clear, no scleral icterus. Mu cous memb moist. TMs normal. CARDIOVASCULAR: RRR. No murmurs or gallops. RESP: Lungs clear. ABD: Normal BS. Soft, nontender, no masses, live r/spleen nonpalpable in exam limited by habitus. SKIN: No rash. No suspicious lesions on upper amilcar dy exam. EXTREMITIES/FEET: No edema. MSK: normal gait with cane No focal muscle wasti ng. Neurological: Alert. Memory appears intact. CN 2 -12 grossly intact. ASSESSMENT/PLAN -see top of note RTC - 6 months or PRN Counseling/coordination of care dominates over 5 0% of 35__ min encounter Tobacco Use Screening: The patient is a former tobacco user. The patient quit five to less than fifteen year s ago. Hepatitis B Immunization: The patient declines to receive HBV immunizatio n. Reason: doesn't want, just imm with flu and pne u today Diabetic Eye Exam: Diabetic Eye Exam already scheduled [facility], or patient already in eye clinic recall. COVID-19 Immunization: Vaccine deferred to later date. Reason: has appt at nonSD facility for tomorrow Medication Reconciliation: Outpatient: Has the patient been taking medications as docu mented in the EMLR? YES: The patient has been taking medications as documented in the EMLR. Essential Medication List for Review used to co mplete this medication reconciliation. INCLUDED IN THIS LIST: Alphabetical list of act azar outpatient prescriptions dispensed from this [facility] (local) an d dispensed from another [facility] or [facility] facility (remote) as well as inpatien t orders (local, pending and active), local clinic medications, locally documented non-VA medications, and local prescriptions that have or been discontinued in the past 90 days. - All changes in medications, including all non -VA/Herbal/OTC medications were entered into CPRS. - If there were any medications the patient tsering uld no longer take, they were discontinued. - The patient/caregiver was instructed to updat e this list, discard old lists, and take this list to the next appointme nt, whether with a VA or non-VA provider. Zoster Vaccine (Shingrix): Deferred due to a precaution: Other significant precaution Details: received 2 vaccination today /emely/ ISHMAEL CATES DNP, [employer]- NURSE PRACTITIONER Signed: 05/16/2021 09:46 May 16, 2021 08:27 PRIMARY CARE ANNUAL EVALUATION NOTE: Milan VÁZQUEZ [facility] TITLE: Preventive Health Annual Review STANDARD TITLE: PRIMARY CARE ANNUAL EVALUATION N OTE DATE OF NOTE: MAY 16, 2021@08:27 ENTRY DATE: MAY 16, 2021@08:27:38 AUTHOR: SILVANA VÁZQUEZ EXP COSIGNER: URGENCY: STATUS: COMPLETED Preventive Health Annual Review Has ADDENDA COVID-19 Immunization: Moderna COVID-19 Vaccine given previously Patient received a prior dose of the Moderna CO VID-19 Vaccine. Date: August 31, 2020 [facility] Patient received a prior dose of the Moderna CO VID-19 Vaccine. Date: September 28, 2020 Location: [facility] Provider Alcohol Use Screen (AUDIT-C): Alcohol Screen: SCREEN FOR ALCOHOL (AUDIT-C) An alcohol screening test (AUDIT-C) was negativ e (score=0). 1. How often did you have a drink containing al cohol in the past year? Never 2. How many drinks containing alcohol did you h ave on a typical day when you were drinking in the past year? Response not required due to responses to other questions. 3. How often did you have six or more drinks on one occasion in the past year? Response not required due to responses to other questions. Depression Screening: Perform PHQ-2 A PHQ-2 screen was performed. The score was 0 w hich is a negative screen for depression. Over the past two weeks, how often have you bee n bothered by the following problems? 1. Little interest or pleasure in doing things Not at all 2. Feeling down, depressed, or hopeless Not at all /emely/ SILVANA VÁZQUEZ Cotton Expert Signed: 05/16/2021 08:31 05/16/2021 ADDENDUM STATUS: COMPLETED Influenza Immunization: The patient was given the influenza VIS which l ists the benefits and side effects of the vaccine and which reviews the ri sks of not receiving the flu vaccine. The VIS was reviewed with the patient and they were given an opportunity to ask questions. The patient was p rovided education on how to decrease the risk of influenza infection inc luding social distancing and use of good hand hygiene. The patient denied an y prior severe reaction to the flu vaccine or its components. The patient gave verbal consent to receive the vaccine. The seasonal influenza vaccine VIS given to the patient: VIS version date Jan. The patient received seasonal influenza vaccine today - Influenza, Quadrivalent, Adjuvanted (Fluad) 0.5 ml IM toda y in Left Deltoid. Pot Maker: [employer] Lot # and Expiration Date: Lot # [id number] Exp. (Fluad) Administered by protocol/policy Complications: None Pneumococcal PPSV23 (Pneumovax): The patient received pneumococcal polysaccharid e vaccine PPSV23 (Pneumovax) 0.5ml IM today in Right Deltoid. Pot Maker: [employer]ck Lot # and Expiration Date: [id number] 07/06/22 Administered by protocol/policy Complications: None The pneumococcal polysaccharide vaccine PPSV23 (Pneumovax) VIS was given to the patient today. VIS version date Jan 21 21. /es/ MEGAN CERVANTES Registered Nurse Signed: 05/16/2021 08:44
--- OUTSIDE RECORDS SUMMARY | 2022-01-19 07:47 | XMS_ITS | Continuity of Care Document ---
:1950 Author Organization [facility] Care Team Providers Name Role Phone [facility] Unavailable Unavailable Problems Combined list of problems from Department of Defense and Veterans Affairs facilities. It does not include entries that were removed or entered in error. 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 Psoriasis Active Condition [place] R [place] [facility] Spinal stenosis of Active Condition W L[place] lumbar region [facility] [facility]OC Diagnosis: ICD-10-CM active Diagnosis [facility] C15.9 Malignant CLIN IC neoplasm of esophagus, unspecifiedwith Provider Comments: Adenocarcinoma of oesophagus (SNOMED CT [id number]) Diagnosis: ICD-10-CM active Diagnosis [place] 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 Provider Comments: Malignant neoplasm of lower third of esophagus Diagnosis: ICD-10-CM active Diagnosis [place] Z79.[address] [facility] term (current) drug therapywith Provider Comments: Other Framing And Hanging (Current) Drug Therapy Diagnosis: ICD-10-CM active Diagnosis [place] 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 Provider Comments: Malignant Neop,Esophagus,Lower Third Diagnosis: ICD-10-CM active Diagnosis [place] R13.14 Dysphagia, OMEGA T VAM[facility]OC pharyngoesophageal phasewith Provider Comments: Dysphagia, Pharyngoesophageal Phase Diagnosis: ICD-10-CM active Diagnosis CAREY DOYLE U07.1 COVID-19with J CT [facility]OC Provider Comments: Covid-19 Diagnosis: ICD-10-CM active Diagnosis CAREY DOYLE J18.9 Pneumonia, [place] [facility] unspecified organismwith Provider Comments: Pneumonia, unspecified organism Diagnosis: ICD-10-CM active Diagnosis CAREY DOYLE R13.12 Dysphagia, OMEGA T [facility] oropharyngeal phasewith Provider Comments: Dysphagia, oropharyngeal phase Diagnosis: ICD-10-CM active Diagnosis [place] R13.14 Dysphagia, OMEGA T [facility] pharyngoesophageal phasewith Provider Comments: Dysphagia, pharyngoesophageal phase Diagnosis: ICD-10-CM active Diagnosis CAREY DOYLE J15.9 Unspecified OMEGA T [facility] bacterial pneumoniawith Provider Comments: Unspecified Bacterial Pneumonia Admit Reason: active Diagnosis [place] pneumonia with COVID [place] [facility] + Diagnosis: ICD-10-CM active Diagnosis [facility] K21.9 CLINIC Gastro-esophageal reflux disease without esophagitiswith Provider Comments: Gastro-Esophageal Reflux Disease without Esophagitis Diagnosis: ICD-10-CM active Diagnosis [facility] R63.4 Abnormal weight CLINIC losswith Provider Comments: Abnormal Weight Loss Diagnosis: ICD-10-CM active Diagnosis [facility] Z71.89 Other CLINIC specified counselingwith Provider Comments: Counseling,Specified Diagnosis: ICD-10-CM active Diagnosis CAREY DOYLE C44.629 Squamous cell [place] [facility] carcinoma skin/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, inc shoulderwith Provider Comments: Primary squamous cell carcinoma of skin of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 (SNOMED CT [id number]) Diagnosis: ICD-10-CM active Diagnosis [place] Z71.89 Other [place] [facility] KATHERINE specified counselingwith Provider Comments: Counseling,Oth Specified Diagnosis: ICD-10-CM active Diagnosis CAREY DOYLE C44.629 Squamous cell [place] [facility] carcinoma skin/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, inc shoulderwith Provider Comments: Squamous Cell Carcinoma of Skin of left upper Limb, including Shoulder Diagnosis: ICD-10-CM active Diagnosis [place] M19.91 Primary [place] V [facility] osteoarthritis, unspecified sitewith Provider Comments: Osteoarthritis (SNOMED CT [id number]) Diagnosis: ICD-10-CM active Diagnosis [place] Z85.820 Personal [place] [facility] history of malignant melanoma of skinwith Provider Comments: Personal Hx of Malig Melanoma of Skin Diagnosis: ICD-10-CM active Diagnosis ST. M48.062 Spinal DENNISON BURY stenosis, lumbar CBO C region with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with Provider Comments: Spinal stenosis of lumbar region (SNOMED CT [id number]) Diagnosis: ICD-10-CM active Diagnosis [place] Z46.0 Encounter for [place] [facility] fit/adjst of spectacles and contact lenseswith Provider Comments: Encounter for Fitting and Adjustment of Spectacles and Contact Lenses Diagnosis: ICD-10-CM active Diagnosis [place] Z96.1 Presence of OMEGA T V[facility] intraocular lenswith Provider Comments: Presence of Intraocular Lens (ICD-10-CM Z96.1) Diagnosis: ICD-10-CM active Diagnosis [place] Z48.02 Encounter for [place] [facility] removal of sutureswith Provider Comments: Suture Removal Diagnosis: ICD-10-CM active Diagnosis [place] D48.5 Neoplasm of OMEGA T V[facility]OC uncertain behavior of skinwith Provider Comments: Neoplasm of Uncertain Behavior of other specified sites of the Oral Cavity - Neoplasm of uncertain behavior of skin (ICD-10-CM D48.5) Diagnosis: ICD-10-CM active Diagnosis [place] D48.5 Neoplasm of OMEGA T [facility] uncertain behavior of skinwith Provider Comments: Neoplasm,Skin,Uncerta in Behavior Diagnosis: ICD-10-CM active Diagnosis [place] M25.50 Pain in [place] V [facility]OC unspecified jointwith Provider Comments: Joint pain (SCT [id number]) Diagnosis: ICD-10-CM active Diagnosis [place] L40.9 Psoriasis, [place] [facility] unspecifiedwith Provider Comments: Psoriasis, unspecified Diagnosis: ICD-10-CM active Diagnosis ST. M54.5 Low back JUMA BURY painwith Provider CB OC Comments: Low back pain (SCT [id number]) Medications Combined list of outpatient medications from Department of Defense and Veterans Affairs facilities. Medications provided include 1) outpatient medications from the last 15 months, and 2) patient-reported medications. Medication Details Route Status Patient Prescription Prescription Last Ordering Order Source Instructions Expires Number Dispense Provider Date Date ALBUTEROL INHALE 2 ACTIVE 05/17/2022 [id number] SURAJ CATES 05/19/ ST. 90MCG/ACTUA PUFFS BY 1 RUSSEL Huff 2020 PITER [place] (CFC-F) MOUTH RY CBOC INHL,ORAL,8 FOUR .5GM DOSE TIMES COUNTER DAILY NEEDED FOR BREATHIN G AMLODIPINE TAKE ONE ORAL ACTIVE 05/17/2022 [id number] SURAJ CATES 05/19/ ST. BESYLATE TABLET 2 UREN P 2020 [place] 5MG TAB BY MOUTH RY CBOC EVERY DAY FOR BLOOD PRESSURE /HEART, DO NOT TAKE WITH GRAPEFRU IT JUICE AMLODIPINE TAKE ONE ORAL DISCONT 09/09/2021 [id number] R SURAJ VILLANUEVA 10/28/ ST. BESYLATE TABLET INUED 1 UREN P 2020 [place] 5MG TAB BY MOUTH (EDIT) RY CBOC EVERY DAY FOR BLOOD PRESSURE /HEART, DO NOT TAKE WITH GRAPEFRU IT JUICE AMMONIUM APPLY TOPICA 11/20/2021 [id number] TERMINE,P 11/21/ WHITE LACTATE 12% THIN LLY 1 AULA A 2020 [place] LOTION FILM JCT TOPICALL VAMROC Y EVERY DAY FOR DRY IRRITATE D SKIN ON ARMS AND LEGS CARBOXYMETH INSTILL BOTH ACTIVE 02/25/2022 [id number] STYCZY NSK 02/24/ WHITE YLCELLULOSE ONE DROP EYES 1 I,JANEL 2020 R IVER NA 0.5% IN BOTH L J JCT (PF) EYES [facility]OC SOLN,OPH,0. FOUR 4ML TIMES A DAY FOR DRYNESS CHOLECALCIF TAKE ONE ORAL ACTIVE 05/17/2022 [id number] SURAJ BERNARD 05/19/ ST. VITOR 10MCG TABLET 2 UREN P 2020 [place] (400UNIT) BY MOUTH RY CBOC TAB EVERY DAY CLOBETASOL APPLY TOPICA DISCONT 10/29/2021 [id number] RAKHRA, AM 10/29/ WHITE PROPIONATE SMALL LLY INUED 1 ANDEEP 2020 [place]IVER 0.05% AMOUNT TURNER JCT SOLN,TOP TOPICALL V[facility]OC Y TWICE A DAY USE DAILY FOR TWO WEEKS. IF IMPROVEM ENT, THEN ONLY USE ON WEEKENDS (/SUNDAY ) USE DAILY FOR TWO WEEKS. IF IMPROVEM ENT, THEN ONLY USE ON WEEKENDS (/SUNDAY ) CURCUMA TAKE ONE ORAL 11/02/2021 [id number] FIELD,CA R 11/01/ WHITE CAP/TAB CAP/TAB 1 EY J 2020 [place] BY MOUTH JCT TWICE A [facility]OC DAY DICLOFENAC APPLY 4 TOPICA ACTIVE 05/17/2022 [id number] RUSTY IER,LA 05/20/ ST. NA 1% GRAMS TO LLY 1 UREN P 2020 [place] GEL,TOP LOWER RY CBOC EXTREMIT IES TOPICALL Y FOUR TIMES DAILY NEEDED FOR PAIN/INF LAMMATIO N. *DO NOT EXCEED 16 GRAMS DAILY TO ANY JOINT OF LOWER EXTREMIT IES. DO NOT EXCEED 8 GRAMS DAILY TO ANY JOINT OF UPPER EXTREMIT IES. DO NOT EXCEED TOTAL DOSE OF 32 GRAMS DAILY OVER ALL JOINTS. DICLOFENAC APPLY 4 TOPICA DISCONT 03/06/2021 [id number] RUSTY IER,LA 03/05/ ST. NA 1% GRAMS TO LLY INUE 1 UREN P 2019 [place] GEL,TOP LOWER RY CBOC EXTREMIT IES TOPICALL Y FOUR TIMES DAILY NEEDED FOR PAIN/INF LAMMATIO N. *DO NOT EXCEED 16 GRAMS DAILY TO ANY JOINT OF LOWER EXTREMIT IES. DO NOT EXCEED 8 GRAMS DAILY TO ANY JOINT OF UPPER EXTREMIT IES. DO NOT EXCEED TOTAL DOSE OF 32 GRAMS DAILY OVER ALL JOINTS. ENSURE PLUS TAKE 1 ORAL ACTIVE 12/17/2022 [id number] Alexandra SANTACRUZ OR 12/17/ WHITE LIQUID CAN BY 2 GLENN M 2021 [place] CHOCOLATE MOUTH JCT THREE [facility]OC TIMES A DAY ; DRINK 2-3/DAY ANY FLAVOR ENSURE PLUS TAKE 1 ORAL ACTIVE 12/17/2022 [id number] Alexandra SANTACRUZ OR 12/17/ WHITE LIQUID CAN BY 2 GLENN M 2021 [place] STRAWBERRY MOUTH JCT THREE [facility]OC TIMES A DAY ; DRINK 2-3/DAY ANY FLAVOR ENSURE PLUS TAKE 1 ORAL ACTIVE 12/17/2022 [id number] Alexandra SANTACRUZ OR 12/17/ WHITE LIQUID CAN BY 2 GLENN M 2021 [place] VANILLA MOUTH JCT THREE [facility]OC TIMES A DAY ; DRINK 2-3/DAY ANY FLAVOR FAMOTIDINE TAKE ONE ORAL SUSPEND 01/11/2023 [id number] H ENDERSON 09/18/ LISA 10MG TAB TABLET ED 2 -PICKARD,KAITLIN 2021 [facility]TH [facility] TWICE A DAY FOR STOMACH ACID FAMOTIDINE TAKE ONE ORAL DISCONT 03/15/2022 [id number] CONWA Y,HE 12/15/ WHITE 10MG TAB TABLET INUED 2 ATHER E 2021 [place] BY MOUTH JCT TWICE A [facility]OC DAY FOR STOMACH ACID HYDROPHILIC APPLY TOPICA 10/29/2021 [id number] RAKHRA ,AM 10/29/ WHITE (EQV SMALL LLY 1 ANDEEP 2020 [place] EUCERIN) AMOUNT TURNER JCT CREAM,TOP TOPICALL [facility]AM[facility]OC Y NEEDED LOSARTAN TAKE ORAL ACTIVE 05/17/2022 [id number] RODIER,LA 1 08/15/ ST. 25MG TAB ONE-HALF 2 UREN P 2020 [place] TABLET RY CBOC BY MOUTH EVERY DAY FOR BLOOD PRESSURE /HEART LOSARTAN TAKE ORAL DISCONT 09/09/2021 [id number] RODIER,LA 09/08/ ST. 25MG TAB ONE-HALF INUED 1 UREN P 2020 [place] TABLET (EDIT) RY CBOC BY MOUTH EVERY DAY FOR BLOOD PRESSURE /HEART METFORMIN TAKE ONE ORAL DISCONT 05/17/2022 [id number] RODIER ,LA 06/04/ ST. HCL 500MG TABLET INUED 2 UREN P 2020 [place] 24HR TAB,SA BY MOUTH RY CB OC EVERY DAY WITH A MEAL FOR DIABETES METFORMIN TAKE ONE ORAL DISCONT 09/09/2021 [id number] RODIER ,LA 09/08/ ST. HCL 500MG TABLET INUED 1 UREN P 2020 [place] 24HR TAB,SA BY MOUTH (EDIT) RY C BOC EVERY DAY WITH A MEAL FOR DIABETES OLODATEROL INHALE 2 ACTIVE 05/17/2022 [id number] RODIER ,LA 06/11/ ST. 2.5MCG/TIOT PUFFS BY 2 UREN P 2020 PITER SBU ROPIUM MOUTH RY CBOC 2.5MCG/ACTU EVERY AT DAY FOR INHL,ORAL,6 BREATHIN 0D,4GM G OLODATEROL INHALE 2 DISCONT 09/09/2021 [id number] ABDOUL ER,LA 11/11/ ST. 2.5MCG/TIOT PUFFS BY INUED 1 UREN P 2020 PITER SBU ROPIUM MOUTH (EDIT) RY CBOC 2.5MCG/ACTU EVERY AT DAY FOR INHL,ORAL,6 BREATHIN 0D,4GM G OMEPRAZOLE TAKE ONE ORAL ACTIVE 11/16/2022 [id number] HENDER SON 11/15/ LISA 20MG CAP,EC CAPSULE 2 -PICKARD,2021 [facility] TWICE A DAY 30 MINUTES BEFORE MEALS FOR STOMACH ACID (TAKE HALF-SHANE R BEFORE A MEAL) OMEPRAZOLE TAKE ONE ORAL DISCONT 01/29/2022 [id number] HENDE RSON 10/31/ LISA 20MG CAP,EC CAPSULE INUED 2 -PICKARD,2021 [facility] BY [facility]TH (EDIT) [facility] EVERY MORNING BEFORE BREAKFAS T FOR STOMACH ACID (TAKE HALF-SHANE R BEFORE A MEAL) SALICYLIC SHAMPOO TOPICA 11/20/2021 [id number] TERMIN E,P 11/21/ WHITE ACID 3% SMALL LLY 1 AU2020 [place] SHAMPOO AMOUNT J[place] TOPICALL [facility] Y ON MONDAYS, AND FRIDAYS ; MASSAGE INTO SCALP, LET SIT 10 MIN AND RINSE SALICYLIC APPLY TOPICA 08/17/2021 [id number] TERMINE, P 07/18/ WHITE ACID 40% PLASTER LLY 2 2021 [place] PLASTER TOPICALL JCT Y ON VAMROC MONDAYS, AND FRIDAYS LEFT ELBOW, REPLACE EVERY 2 DAYS. REMOVE THE LOOSE SKIN. SERTRALINE TAKE ORAL ACTIVE 05/17/2022 [id number] DARRYN,LA 07/02/ ST. HCL 50MG THREE 2 UREN P 2021 [place] TAB TABLETS RY CBOC BY MOUTH EVERY DAY FOR DEPRESSI ON OR ANXIETY SERTRALINE TAKE ORAL DISCONT 09/09/2021 [id number] RODIER,L A 09/08/ ST. HCL 50MG THREE INUED 1 UREN P 2020 [place] TAB TABLETS (EDIT) RY CBOC BY MOUTH EVERY DAY FOR DEPRESSI ON OR ANXIETY Allergies, Adverse Reactions, Alerts Combined list of allergies from Department of Defense and Veterans Affairs facilities. It does not include entries that were removed or entered in error. Substance Category Reaction Severity Reaction Status Date Comments S ource type Reported LISINOPRIL Propensity Lip MODERATE Propensity active WHITE to adverse swelling to adverse 7 R IVER reactions to reactions J CT drug to drug [facility] (finding) (finding) Immunizations Combined list of available immunizations from the Department of Defense and Veterans Affairs facilities. 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 VACCINE, 2020 ed DENNISON BU QUADRIVALENT, RY CBOC ADJUVANTED PNEUMOCOCCAL complet ST. POLYSACCHARID 2020 ed [place] E PPV23 RY CBO C COVID-19 2 complet WH ITE (MODERNA), 2020 ed TARA ER MRNA, LNP-S, J CT PF, 100 MCG [facility] OR 50 MCG DOSE COVID-19 1 complet WH ITE (MODERNA), 2020 ed TARA ER MRNA, LNP-S, J CT PF, 100 MCG [facility] OR 50 MCG DOSE INFLUENZA, complet ST. INJECTABLE, 2019 ed KAITLIN HNSBU QUADRIVALENT, RY CBOC PRESERVATIVE FREE ZOSTER [address] RECOMBINANT 2019 ed KAITLIN HNSBU RY CBOC INFLUENZA, complet Site: WHITE TRIVALENT, 2019 ed Left TARA ER ADJUVANTED Deltoid J CT [facility] HEP A-HEP B 2 complet WHITE 2019 ed [place] [facility] INFLUENZA, complet Site: WHITE INJECTABLE, 2018 ed Left RI ANGELES QUADRIVALENT Deltoid [place]CT [facility] PNEUMOCOCCAL complet ST CONJUGATE PCV 2018 ed [place] 13 [facility]Y [facility] HEP A-HEP B 1 complet WHITE 2018 ed [place] [facility] INFLUENZA, complet newpor t WHITE SEASONAL, 2017 ed va RIVE R INJECTABLE [place] [facility] INFLUENZA, complet Site: WHITE UNSPECIFIED 2014 ed Left RI ANGELES FORMULATION Deltoid [place] [facility] PNEUMOCOCCAL 06/17/ ENMA TAPIA 33 compl et WHITE POLYSACCHARID 2014 ed RIVER E PPV23 [place] [facility] TDAP 06/17/ ENMA TAPIA 115 complet WHITE 2014 ed [place] [facility] Results Combined list of recent chemistry, hematology and other laboratory results from Department of Defense and Veterans Affairs, ranging from 15 months to all on record, depending upon the facility. Order Results Value Reference Date Interpretation Specimen Commen ts Source Name Range CBC LEUKOCYTES 5.7 4.5 - 11.0 12/15 Specimen T ype: BLOOD WHITE PROFILE [#/VOLUME] /2021 No comment en tered. R[place] IN BLOOD BY Ordering Pr ovider: ISATU TODD AUTOMATED Report Releas ed Date/Time: Dec 10, 2021 07:22 AM [facility] COUNT Reporting Lab: [place] [facility] [facility] [address] [place] [facility] [place] [address] Performing Lab: [place] [facility] [facility] [address] [place] [facility] [place] [address] CBC ERYTHROCYTE 4.22 4.23 - 12/15 L Specimen Typ e: BLOOD WHITE PROFILE S 5.66 No comment enter ed. RIVER [#/VOLUME] Ordering Pro vider: ISATU TODD JCT IN BLOOD BY Report Rele ased Date/Time: Dec 10, 2021 07:22 AM [facility] AUTOMATED Reporting Lab : [place] [facility] COUNT [address] [place] [facility] [place] [address] Performing Lab: [place] [facility] [address] [place] [facility] [place] [address] CBC HEMOGLOBIN 10.8 12.8 - 17 12/15 L Specimen Ty pe: BLOOD WHITE PROFILE [MASS/VOLUM No comment e ntered. RIVER E] IN BLOOD Ordering Pr ovider: ISATU TODD Report Released Date/Time: Dec 10, 2021 07:22 AM [facility] Reporting Lab: [place] [facility] [address] [place] [facility] [place] [address] Performing Lab: [place] [facility] [address] [place] [facility] [place] [address] CBC HEMATOCRIT 35.0 39.2 - 06/30 L Specimen Type : BLOOD WHITE PROFILE [VOLUME 50.4 /2021 No comment enter ed. RIVER FRACTION] Ordering Prov ider: ISATU TODD OF BLOOD BY Report Rele ased Date/Time: Dec 10, 2021 07:22 AM [facility] AUTOMATED Reporting Lab : [place] [facility] COUNT [address] [facility] [address] Performing Lab: [place] [facility] [address] [facility] [address] CBC MCV 82.9 82 - 99 12/15 Specimen Type: B LOOD WHITE PROFILE [ENTITIC /2021 No comment ente red. RIVER VOLUME] BY Ordering Pro vider: ISATU TODD AUTOMATED Report Releas ed Date/Time: Dec 10, 2021 07:22 AM [facility] COUNT Reporting Lab: [place] [facility] [facility] [address] [facility] [address] Performing Lab: [place] [facility] [address] [facility] [address] CBC MCH 25.6 26.2 - 12/15 L Specimen Type: B LOOD WHITE PROFILE [ENTITIC 32.6 No comment ente red. RIVER MASS] BY Ordering Provi nik: ISATU TODD AUTOMATED Report Releas ed Date/Time: Dec 10, 2021 07:22 AM [facility] COUNT Reporting Lab: [place] [facility] [address] [facility] [address] Performing Lab: [place] [facility] [address] [facility] [address] CBC MCHC 30.9 30.8 - 12/15 Specimen Type: B LOOD WHITE PROFILE [MASS/VOLUM 35.1 No comment e ntered. RIVER E] BY Ordering Provid er: ISATU TODD AUTOMATED Report Releas ed Date/Time: Dec 10, 2021 07:22 AM [facility] COUNT Reporting Lab: [place] [facility] [address] [facility] [address] Performing Lab: [place] [facility] [address] [facility] [address] CBC PLATELETS 172 140 - 360 12/15 Specimen Typ e: BLOOD WHITE PROFILE [#/VOLUME] /2021 No comment en tered. RIVER IN BLOOD BY Ordering Pr ovider: ISATU TODDT AUTOMATED Report Releas ed Date/Time: Dec 10, 2021 07:22 AM [facility] COUNT Reporting Lab: [facility] [facility] [address] [place] [facility] [place] [address] Performing Lab: [facility] [facility] [address] [place] [facility] [place] [address] CBC PLATELET 9.2 9.2 - 12.4 12/15 Specimen Typ e: BLOOD WHITE PROFILE MEAN VOLUME /2021 No comment e ntered. RIVER [ENTITIC Ordering Provi nik: ISATU TODD E OMEGAT VOLUME] IN Report Relea sed Date/Time: Dec 10, 2021 07:22 AM [facility] BLOOD BY Reporting Lab: [place] [facility] [facility] AUTOMATED [address] [facility] [address] COUNT Performing Lab: [facility] [place] [facility] [address] [place] [facility] [place] [address] CBC ERYTHROCYTE 17.2 12.0 - 12/15 H Specimen Typ e: BLOOD WHITE PROFILE DISTRIBUTIO 16.0 /2021 No comment e ntered. RIVER N WIDTH Ordering Provid er: ISATU TODD JCT [RATIO] BY Report Relea sed Date/Time: Dec 10, 2021 07:22 AM [facility] AUTOMATED Reporting Lab : [place] [facility] [facility] COUNT [address] [place] [facility] [place] [address] Performing Lab: [facility] [place] [facility] [address] [place] [facility] [place] [address] CBC LYMPHOCYTES 13.6 14.0 - 12/15 L Specimen Typ e: BLOOD WHITE PROFILE /100 42.3 /2021 No comment enter ed. RIVER LEUKOCYTES Ordering Pro vider: ISATU TODD JCT IN BLOOD BY Report Rele ased Date/Time: Dec 10, 2021 07:22 AM [facility] AUTOMATED Reporting Lab : [place] [facility] [facility] COUNT [address] [place] [facility] [place] [address] Performing Lab: [facility] [place] [facility] [address] [place] [facility] [place] [address] CBC MONOCYTES/1 6.7 5.1 - 13.7 06/30 Specimen Type: BLOOD WHITE PROFILE No comment enter ed. RIVER LEUKOCYTES Ordering Pro vider: ISATU TODD E JCT IN BLOOD BY Report Rele ased Date/Time: Dec 10, 2021 07:22 AM [facility] AUTOMATED Reporting Lab : [place] [facility] [facility] COUNT [address] [place] [facility] [place] [address] Performing Lab: [facility] [address] [place] [facility] [place] [address] CBC GRANULOCYTE 78.3 43.7 - 12/15 H Specimen Typ e: BLOOD WHITE PROFILE S/100 75.8 No comment enter ed. RIVER LEUKOCYTES Ordering Pro vider: ISATU TODD JCT IN BLOOD BY Report Rele ased Date/Time: Dec 10, 2021 07:22 AM [facility] AUTOMATED Reporting Lab : [facility] [facility] COUNT [address] [place] [facility] [place] [address] Performing Lab: [facility] [address] [place] [facility] [place] [address] CBC EOSINOPHILS 0.5 0.4 - 6.8 12/15 Specimen T ype: BLOOD WHITE PROFILE / No comment enter ed. RIVER LEUKOCYTES Ordering Pro vider: ISATU TODD JCT IN BLOOD BY Report Rele ased Date/Time: Dec 10, 2021 07:22 AM [facility] AUTOMATED Reporting Lab : [facility] [place] [facility] COUNT [address] [place] [facility] [place] [address] Performing Lab: [facility] [address] [place] [facility] [place] [address] CBC BASOPHILS/1 0.4 0.1 - 2.0 12/15 Specimen T ype: BLOOD WHITE PROFILE No comment enter ed. RIVER LEUKOCYTES Ordering Pro vider: ISATU TODD E JCT IN BLOOD BY Report Rele ased Date/Time: Dec 10, 2021 07:22 AM [facility] AUTOMATED Reporting Lab : [facility] [place] [facility] COUNT [address] [place] [facility] [place] [address] Performing Lab: [facility] [address] [place] [facility] [place] [address] CBC IMMATURE 0.5 0.0 - 0.7 12/15 Specimen Type : BLOOD WHITE PROFILE GRANULOCYTE /2021 No comment e ntered. RIVER S/100 Ordering Provid er: ISATU TODD LEUKOCYTES Report Relea sed Date/Time: Dec 10, 2021 07:22 AM [facility] IN BLOOD BY Reporting L ab: [facility] [place] AUTOMATED [address] [place] [facility] [place] [address] COUNT Performing Lab: [facility] [address] [place] [facility] [place] [address] CBC NUCLEATED 0.0 0.0 - 0.0 12/15 Specimen Typ e: BLOOD WHITE PROFILE ERYTHROCYTE No comment e ntered. RIVER S Ordering Provid er: ISATU TODD E OMEGAT [#/VOLUME] Report Relea sed Date/Time: Dec 10, 2021 07:22 AM [facility] IN BLOOD BY Reporting L ab: [facility] [place]OMATED [address] [place] [facility] [place] [address] COUNT Performing Lab: [facility] [address] [place] [facility] [place] [address] CBC IMMATURE 0.0 0 - 0.06 12/15 Specimen Type: BLOOD WHITE PROFILE GRANULOCYTE No comment e ntered. RIVER S Ordering Provid er: ISATU TODDT [#/VOLUME] Report Relea sed Date/Time: Dec 10, 2021 07:22 AM [facility] IN BLOOD Reporting Lab: [facility] [address] [place] [facility] [place] [address] Performing Lab: [facility] [address] [place] [facility] [place] [address] CBC BASOPHILS 0.0 0.01 - 06/30 L Specimen Type: BLOOD WHITE PROFILE [#/VOLUME] 0.13 No comment en tered. RIVER IN BLOOD BY Ordering Pr ovider: ISATU TODD E LINDSAY AUTOMATED Report Releas ed Date/Time: Dec 10, 2021 07:22 AM [facility] COUNT Reporting Lab: [facility] [address] [place] [facility] [place] [address] Performing Lab: [facility] [address] [place] [facility] [place] [address] CBC EOSINOPHILS 0.0 0.03 - 06/30 L Specimen Typ e: BLOOD WHITE PROFILE [#/VOLUME] 0.44 /2021 No comment en tered. RIVER IN BLOOD BY Ordering Pr ovider: ISATU TODD E JCT AUTOMATED Report Releas ed Date/Time: Dec 10, 2021 07:22 AM [facility] COUNT Reporting Lab: [facility] [address] [place] [facility] [place] [address] Performing Lab: [facility] [address] [place] [facility] [place] [address] CBC LYMPHOCYTES 0.8 1.0 - 3.2 12/15 L Specimen T ype: BLOOD WHITE PROFILE [#/VOLUME] /2021 No comment en tered. RIVER IN BLOOD BY Ordering Pr ovider: ISATU TODD E JCT AUTOMATED Report Releas ed Date/Time: Dec 10, 2021 07:22 AM [facility] COUNT Reporting Lab: [facility] [address] [place] [facility] [place] [address] Performing Lab: [facility] [address] [place] [facility] [place] [address] CBC MONOCYTES 0.4 0.3 - 1.1 12/15 Specimen Typ e: BLOOD WHITE PROFILE [#/VOLUME] /2021 No comment en tered. RIVER IN BLOOD BY Ordering Pr ovider: ISATU TODD E J[place] AUTOMATED Report Releas ed Date/Time: Dec 10, 2021 07:22 [facility] Reporting Lab: [facility] [address] [place] [facility] [place] [place] [address] Performing Lab: [facility] [address] [place] [facility] [place] [address] CBC NEUTROPHILS 4.4 2.2 - 7.6 12/15 Specimen T ype: BLOOD WHITE PROFILE [#/VOLUME] /2021 No comment en tered. RIVER IN BLOOD BY Ordering Pr ovider: KATHY TODDHER E [place] AUTOMATED Report Releas ed Date/Time: Dec 10, 2021 07:22 [facility] Reporting Lab: [facility] [address] [place] [facility] [place] [address] Performing Lab: [facility] [address] [place] [facility] [place] [address] CBC NUCLEATED 0.00 0 - 0 12/15 Specimen Type: BLOOD WHITE PROFILE ERYTHROCYTE No comment e ntered. RIVER S Ordering Provid er: ISATU TODD [#/VOLUME] Report Relea sed Date/Time: Dec 10, 2021 07:22 AM [facility] IN BLOOD BY Reporting L ab: [facility] [place] [place] [facility] AUTOMATED [address] [facility] [address] COUNT Performing Lab: [facility] [address] [facility] [address] P4 UREA 9 7 - 25 12/15 Specimen Type: P LASMA WHITE GLU,BUN,C NITROGEN /2021 Comment: Garima ts performed on Pham Nurse Licensed Practical (405) SN:[id number] ERMELINDA HINTON [MASS/VOLUM Ordering Provider: ISATU TODD S,CA E] IN SERUM Report Rele ased Date/Time: Dec 11, 2021 07:42 AM [facility] OR PLASMA Reporting Lab : [facility] [facility] [address] [facility] [address] Performing Lab: [facility] [address] [facility] [address] P4 SODIUM 137 135 - 145 12/15 Specimen Type: PLASMA WHITE GLU,BUN,C [MOLES/VOLU /2021 Comment: Tests performed on Pham Nurse Licensed Practical (405) SN:[id number] ERMELINDA HINTON MT] IN Ordering Prov ider: ISATU TODD S,CA SERUM OR Report Release d Date/Time: Dec 11, 2021 07:42 AM [facility] PLASMA Reporting Lab: [facility] [address] [facility] [address] Performing Lab: [facility] [address] [facility] [address] P4 POTASSIUM 3.8 3.5 - 5.0 12/15 Specimen Typ e: PLASMA WHITE GLU,BUN,C [MOLES/VOLU /2021 Comment: Tests performed on Pham Nurse Licensed Practical (405) SN:[id number] ANA MARIA HINTONTE ME] IN Ordering Prov ider: ISATU TODD S,CA SERUM OR Report Release d Date/Time: Dec 11, 2021 07:42 AM [facility] PLASMA Reporting Lab: [facility] [facility] [address] [facility] [address] Performing Lab: [place] [facility] [address] [facility] [address] P4 CHLORIDE 105 100 - 110 12/15 Specimen Type : PLASMA WHITE GLU,BUN,C [MOLES/VOLU /2021 Comment: Tests performed on Pham [employer] (405) SN:[id number] RIVER REAT,LYTE ME] IN Ordering Prov ider: ISATU TODD SCA SERUM OR Report Release d Date/Time: Dec 11, 2021 07:42 AM [facility] PLASMA Reporting Lab: [facility] [facility] [address] [facility] [address] Performing Lab: [facility] [place] [address] [facility] [address] P4 CARBON 26 - 30 12/15 Specimen Type: P LASMA WHITE GLU,BUN,C DIOXIDE, /2021 Comment: Garima ts performed on Pham [employer] (405) SN:[id number] RIVER REAT,LYTE TOTAL Ordering Prov ider: ISATU TODDCA [MOLES/VOLU Report Rele ased Date/Time: Dec 11, 2021 07:42 AM [facility] ME] IN Reporting Lab: [facility] [facility] SERUM OR [address] [facility] [address] PLASMA Performing Lab: [facility] [facility] [address] [facility] [address] P4 ANION GAP 6 4 - 16 12/15 Specimen Type: PLASMA WHITE GLU,BUN,C IN SERUM OR /2021 Comment: Tests performed on Pham [employer] (405) SN:[id number] RIVER REAT,LYTE PLASMA Ordering Prov ider: ISATU TODD SCA Report Released Date/Time: Dec 11, 2021 07:42 AM [facility] Reporting Lab: [place] [facility] [address] [facility] [address] Performing Lab: [facility] [facility] [address] [facility] [address] P4 GLUCOSE 102 65 - 100 12/15 H Specimen Type: PLASMA WHITE GLU,BUN,C [MASS/VOLUM /2021 Comment: Tests performed on Pham Nurse Licensed Practical (405) SN:[id number] RIVER REAT,LYTE E] IN SERUM Ordering Provider: ISATU TODD SCA OR PLASMA Report Releas ed Date/Time: Dec 11, 2021 07:42 AM [facility] Reporting Lab: [place] [facility] [address] [facility] [address] Performing Lab: [place] [facility] [address] [facility] [address] P4 CREATININE 0.64 0.5 - 1.5 12/15 Specimen Ty pe: PLASMA WHITE GLU,BUN,C [MASS/VOLUM /2021 Comment: Tests performed on Pham Nurse Licensed Practical (405) SN:[id number] RIVER RAYMUNDOATLYTE E] IN SERUM Ordering Provider: ISATU TODD SCA OR PLASMA Report Releas ed Date/Time: Dec 11, 2021 07:42 AM [facility] Reporting Lab: [place] [facility] [address] [facility] [address] Performing Lab: [place] [facility] [address] [facility] [address] P4 CALCIUM 8.1 8.5 - 10.5 12/15 L Specimen Type : PLASMA WHITE GLU,BUN,C [MASS/VOLUM /2021 Comment: Tests performed on Pham Nurse Licensed Practical (405) SN:[id number] RIVER RAYMUNDOATLYTE E] IN SERUM Ordering Provider: ISATU TODDCA OR PLASMA Report [facility] ed Date/Time: Dec 11, 2021 07:42 AM [facility] Reporting Lab: [place] [facility] [address] [facility] [address] Performing Lab: [place] [address] [facility] [address] P4 eGFR(CKD-EP >90.0 60 12/15 Specimen Typ e: PLASMA WHITE GLU,BUN,C I /2021 Comment: Test s performed on Pham Nurse Licensed Practical (405) SN:[id number] RIVER CHERYLLYTE Ordering Prov ider: ISATU TODD SCA Report Released Date/Time: Dec 11, 2021 07:42 AM [facility] Reporting Lab: [place] [address] [facility] [address] Performing Lab: [place] [address] [place] [address] CYTOGENET CYTOGENETIC comment 12/14 Specimen T ype: ESOPHAGUS WHITE IC FISH([facility]) /2021 Comment: ~Fo r Test: CYTOGENETIC FISH([facility]) ~FISH HER 2 NUE, FFPE See full report in [place] Image display viewer/tab#LAB-Reference RIVER FISH([facility] Ordering Prov ider: NIURKA MILLER [place] ) Report Released Date/Time: Dec 21, 2021 12:11 PM [facility] Reporting Lab: [place] [facility] [address] [facility] [place] [address] Performing Lab: [place] [facility] [place] CBC LEUKOCYTES 6.0 4.5 - 11.0 12/14 Specimen T ype: BLOOD WHITE PROFILE [#/VOLUME] /2021 No comment en tered. RIVER IN BLOOD BY Ordering Pr ovider: ISATU TODD AUTOMATED Report Releas ed Date/Time: Dec 10, 2021 07:22 AM [facility] COUNT Reporting Lab: [place] [facility] [address] [facility] [place] [address] Performing Lab: [place] [facility] [address] [place] [facility] [place] [address] CBC ERYTHROCYTE 4.29 4.23 - 12/14 Specimen Typ e: BLOOD WHITE PROFILE S 5.66 No comment enter ed. RIVER [#/VOLUME] Ordering Pro vider: ISATU TODDT IN BLOOD BY Report Rele ased Date/Time: Dec 10, 2021 07:22 AM [facility] AUTOMATED Reporting Lab : [place] COUNT [address] [facility] [place] [address] Performing Lab: [facility] [facility] [address] [place] [facility] [place] [address] CBC HEMOGLOBIN 11.2 12.8 - 17 12/14 L Specimen Ty pe: BLOOD WHITE PROFILE [MASS/VOLUM /2021 No comment e ntered. RIVER E] IN BLOOD Ordering Pr ovider: ISATU TODD Report Released Date/Time: Dec 10, 2021 07:22 AM [facility] Reporting Lab: [facility] [address] [facility] [place] [address] Performing Lab: [facility] [place] [facility] [address] [facility] [address] CBC HEMATOCRIT 35.7 39.2 - 12/14 L Specimen Type : BLOOD WHITE PROFILE [VOLUME 50.4 /2021 No comment enter ed. RIVER FRACTION] Ordering Prov ider: ISATU TODD OF BLOOD BY Report Rele ased Date/Time: Dec 10, 2021 07:22 AM [facility] AUTOMATED Reporting Lab : [place] [facility] COUNT [address] [facility] [address] Performing Lab: [place] [facility] [address] [facility] [address] CBC MCV 83.2 82 - 99 12/14 Specimen Type: B LOOD WHITE PROFILE [ENTITIC /2021 No comment ente red. RIVER VOLUME] BY Ordering Pro vider: ISATU TODD AUTOMATED Report Releas ed Date/Time: Dec 10, 2021 07:22 AM [facility] COUNT Reporting Lab: [place] [address] [facility] [address] Performing Lab: [place] [address] [facility] [address] CBC MCH 26.1 26.2 - 12/14 L Specimen Type: B LOOD WHITE PROFILE [ENTITIC 32.6 No comment ente red. RIVER MASS] BY Ordering Provi nik: ISATU TODDT AUTOMATED Report Releas ed Date/Time: Dec 10, 2021 07:22 AM [facility] COUNT Reporting Lab: [place] [facility] [address] [facility] [address] Performing Lab: [place] [address] [facility] [address] CBC MCHC 31.4 30.8 - 12/14 Specimen Type: B LOOD WHITE PROFILE [MASS/VOLUM 35.1 No comment e ntered. RIVER E] BY Ordering Provid er: ISATU TODD JCGorge AUTOMATED Report Releas ed Date/Time: Dec 10, 2021 07:22 AM [facility] COUNT Reporting Lab: [place] [address] [facility] [address] Performing Lab: [facility] [address] [place] [address] CBC PLATELETS 168 140 - 360 12/14 Specimen Typ e: BLOOD WHITE PROFILE [#/VOLUME] /2021 No comment en tered. RIVER IN BLOOD BY Ordering Pr ovider: ISATU TODD [place] AUTOMATED Report Releas ed Date/Time: Dec 10, 2021 07:22 AM [facility] COUNT Reporting Lab: [place] [facility] [address] [place] [facility] [place] [address] Performing Lab: [facility] [facility] [address] [facility] [address] CBC PLATELET 8.8 9.2 - 12.4 12/14 L Specimen Typ e: BLOOD WHITE PROFILE MEAN VOLUME /2021 No comment e ntered. RIVER [ENTITIC Ordering Provi nik: ISATU TODD E [place] VOLUME] IN Report Relea sed Date/Time: Dec 10, 2021 07:22 AM [facility] BLOOD BY Reporting Lab: [place] [facility] [address] [facility] [address] COUNT Performing Lab: [facility] [address] [place] [facility] [place] [address] CBC ERYTHROCYTE 17.3 12.0 - 12/14 H Specimen Typ e: BLOOD WHITE PROFILE DISTRIBUTIO 16.0 /2021 No comment e ntered. RIVER N WIDTH Ordering Provid er: ISATU TODD E [place] [RATIO] BY Report Relea sed Date/Time: Dec 10, 2021 07:22 AM [facility] AUTOMATED Reporting Lab : [place] [facility] COUNT [address] [facility] [address] Performing Lab: [place] [address] [place] [facility] [place] [address] CBC LYMPHOCYTES 14.4 14.0 - 12/14 Specimen Typ e: BLOOD WHITE PROFILE /100 42.3 /2021 No comment enter ed. RIVER LEUKOCYTES Ordering Pro vider: ISATU TODD E [place] IN BLOOD BY Report Rele ased Date/Time: Dec 10, 2021 07:22 AM [facility] AUTOMATED Reporting Lab : [place] [facility] COUNT [address] [place] [facility] [place] [address] Performing Lab: [facility] [facility] [address] [place] [facility] [place] [address] CBC MONOCYTES/1 6.0 5.1 - 13.7 12/14 Specimen Type: BLOOD WHITE PROFILE No comment enter ed. RIVER LEUKOCYTES Ordering Pro vider: ISATU TODD [place] IN BLOOD BY Report Rele ased Date/Time: Dec 10, 2021 07:22 AM [facility] AUTOMATED Reporting Lab : [place] [facility] COUNT [address] [place] [facility] [place] [address] Performing Lab: [facility] [address] [place] [facility] [place] [address] CBC GRANULOCYTE 78.3 43.7 - 12/14 H Specimen Typ e: BLOOD WHITE PROFILE S/100 75. No comment enter ed. RIVER LEUKOCYTES Ordering Pro vider: ISATU TODD [place] IN BLOOD BY Report Rele ased Date/Time: Dec 10, 2021 07:22 AM [facility] AUTOMATED Reporting Lab : [place] [facility] COUNT [address] [facility] [address] Performing Lab: [facility] [facility] [address] [facility] [address] CBC EOSINOPHILS 0.2 0.4 - 6.8 12/14 L Specimen T ype: BLOOD WHITE PROFILE / No comment enter ed. RIVER LEUKOCYTES Ordering Pro vider: ISATU TODD [place] IN BLOOD BY Report Rele ased Date/Time: Dec 10, 2021 07:22 AM [facility] AUTOMATED Reporting Lab : [place] [facility] COUNT [address] [place] [facility] [place] [address] Performing Lab: [facility] [facility] [address] [place] [facility] [place] [address] CBC BASOPHILS/1 0.3 0.1 - 2.0 12/14 Specimen T ype: BLOOD WHITE PROFILE No comment enter ed. RIVER LEUKOCYTES Ordering Pro vider: ISATU TODD [place] IN BLOOD BY Report Rele ased Date/Time: Dec 10, 2021 07:22 AM [facility] AUTOMATED Reporting Lab : [place] [facility] COUNT [address] [place] [facility] [place] [address] Performing Lab: [place] [facility] [address] [place] [facility] [place] [address] CBC IMMATURE 0.8 0.0 - 0.7 12/14 H Specimen Type : BLOOD WHITE PROFILE GRANULOCYTE /2021 No comment e ntered. RIVER S/100 Ordering Provid er: ISATU TODD LEUKOCYTES Report Relea sed Date/Time: Dec 10, 2021 07:22 AM [facility] IN BLOOD BY Reporting L ab: [place] [facility] [address] [place] [facility] [place] [address] COUNT Performing Lab: [facility] [address] [place] [facility] [place] [address] CBC NUCLEATED 0.0 0.0 - 0.0 12/14 Specimen Typ e: BLOOD WHITE PROFILE ERYTHROCYTE No comment e ntered. RIVER S Ordering Provid er: ISATU TODD [#/VOLUME] Report Relea sed Date/Time: Dec 10, 2021 07:22 AM [facility] IN BLOOD BY Reporting L ab: [place] [facility] [address] [place] [facility] [place] [address] COUNT Performing Lab: [facility] [address] [place] [facility] [place] [address] CBC IMMATURE 0.1 0 - 0.06 12/14 H Specimen Type: BLOOD WHITE PROFILE GRANULOCYTE /2021 No comment e ntered. RIVER S Ordering Provid er: ISATU TODD [#/VOLUME] Report Relea sed Date/Time: Dec 10, 2021 07:22 AM [facility] IN BLOOD Reporting Lab: [place] [address] [place] [facility] [place] [address] Performing Lab: [facility] [address] [place] [facility] [place] [address] CBC BASOPHILS 0.0 0.01 - 06 L Specimen Type: BLOOD WHITE PROFILE [#/VOLUME] 0.13 No comment en tered. RIVER IN BLOOD BY Ordering Pr ovider: ISATU TODD AUTOMATED Report Releas ed Date/Time: Dec 10, 2021 07:22 AM [facility] COUNT Reporting Lab: [place] [facility] [address] [place] [facility] [place] [address] Performing Lab: [facility] [facility] [address] [place] [facility] [place] [address] CBC EOSINOPHILS 0.0 0.03 - 06 L Specimen Typ e: BLOOD WHITE PROFILE [#/VOLUME] 0.44 /2021 No comment en tered. RIVER IN BLOOD BY Ordering Pr ovider: ISATU TODD [place] AUTOMATED Report Releas ed Date/Time: Dec 10, 2021 07:22 AM [facility] COUNT Reporting Lab: [place] [facility] [address] [place] [facility] [place] [address] Performing Lab: [facility] [address] [place] [facility] [place] [address] CBC LYMPHOCYTES 0.9 1.0 - 3.2 12/14 L Specimen T ype: BLOOD WHITE PROFILE [#/VOLUME] /2021 No comment en tered. RIVER IN BLOOD BY Ordering Pr ovider: ISATU TODD AUTOMATED Report Releas ed Date/Time: Dec 10, 2021 07:22 AM [facility] COUNT Reporting Lab: [place] [address] [place] [facility] [place] [address] Performing Lab: [facility] [address] [place] [facility] [place] [address] CBC MONOCYTES 0.4 0.3 - 1.1 12/14 Specimen Typ e: BLOOD WHITE PROFILE [#/VOLUME] /2021 No comment en tered. RIVER IN BLOOD BY Ordering Pr ovider: ISATU TODD AUTOMATED Report Releas ed Date/Time: Dec 10, 2021 07:22 AM [facility] COUNT Reporting Lab: [facility] [place] [address] [place] [facility] [place] [address] Performing Lab: [facility] [address] [place] [facility] [place] [address] CBC NEUTROPHILS 4.7 2.2 - 7.6 12/14 Specimen T ype: BLOOD WHITE PROFILE [#/VOLUME] /2021 No comment en tered. RIVER IN BLOOD BY Ordering Pr ovider: ISATU TODDT AUTOMATED Report Releas ed Date/Time: Dec 10, 2021 07:22 AM [facility] COUNT Reporting Lab: [facility] [place] [address] [place] [facility] [place] [address] Performing Lab: [facility] [place] [facility] [address] [place] [facility] [place] [address] CBC NUCLEATED 0.00 0 - 0 12/14 Specimen Type: BLOOD WHITE PROFILE ERYTHROCYTE No comment e ntered. RIVER S Ordering Provid er: ISATU TODD [#/VOLUME] Report Relea sed Date/Time: Dec 10, 2021 07:22 AM [facility] IN BLOOD BY Reporting L ab: [facility] [facility] [address] [facility] [address] COUNT Performing Lab[facility] [address] [facility] [address] P4 UREA 10 - 12/14 Specimen Type: P LASMA WHITE GLU,BUN,C NITROGEN /2021 Comment: Garima ts performed on [employer] (405) SN:[id number] ERMELINDA HINTON [MASS/VOLUM Ordering Provider: ISATU TODD S,CA E] IN SERUM Report Rele ased Date/Time: Dec 11, 2021 07:42 AM [facility] OR PLASMA Reporting Lab : [facility] [place] [facility] [facility] [address] [facility] [address] Performing Lab: [facility] [place] [facility] [facility] [address] [facility] [address] P4 SODIUM 137 135 - 145 12/14 Specimen Type: PLASMA WHITE GLU,BUN,C [MOLES/VOLU /2021 Comment: Tests performed on Pham [employer] (405) SN:[id number] ERMELINDA HINTON MT] IN Ordering Prov ider: ISATU TODD S,CA SERUM OR Report Release d Date/Time: Dec 11, 2021 07:42 AM [facility] PLASMA Reporting Lab: [facility] [facility] [facility] [address] [facility] [address] Performing Lab: [facility] [facility] [facility] [address] [facility] [address] P4 POTASSIUM 4.0 3.5 - 5.0 12/14 Specimen Typ e: PLASMA WHITE GLU,BUN,C [MOLES/VOLU /2021 Comment: Tests performed on [employer] (405) SN:[id number] VIVEK LUNALYTE ME] IN Ordering Prov ider: ISATU TODD S,CA SERUM OR Report Release d Date/Time: Dec 11, 2021 07:42 AM [facility] PLASMA Reporting Lab: [facility] [place] [facility] [facility] [address] [facility] [address] Performing Lab: [place] [facility] [address] [facility] [address] P4 CHLORIDE 104 100 - 110 12/14 Specimen Type : PLASMA WHITE GLU,BUN,C [MOLES/VOLU /2021 Comment: Tests performed on Pham [employer] (405) SN:[id number] RIVER REAT,LYTE ME] IN Ordering Prov ider: ISATU TODD S,CA SERUM OR Report Release d Date/Time: Dec 11, 2021 07:42 AM [facility] PLASMA Reporting Lab: [place] [facility] [address] [facility] [address] Performing Lab: [facility] [place] [facility] [address] [facility] [address] P4 CARBON 25 20 - 30 12/14 Specimen Type: P LASMA WHITE GLU,BUN,C DIOXIDE, /2021 Comment: Garima ts performed on Pham Nurse Licensed Practical (405) SN:[id number] RIVER REAT,LYTE TOTAL Ordering Prov ider: ISATU TODD S,CA [MOLES/VOLU Report Rele ased Date/Time: Dec 11, 2021 07:42 AM [facility] ME] IN Reporting Lab: [facility] [place] [facility] [facility] SERUM OR [address] [facility] [address] PLASMA Performing Lab: [facility] [address] [facility] [address] P4 ANION GAP 8 4 - 16 12/14 Specimen Type: PLASMA WHITE GLU,BUN,C IN SERUM OR /2021 Comment: Tests performed on Pham Nurse Licensed [employer]ractical (405) SN:[id number] RIVER REAT,LYTE PLASMA Ordering Prov ider: ISATU TODD SCA Report Released Date/Time: Dec 11, 2021 07:42 AM [facility] Reporting Lab: [facility] [place] [facility] [address] [place] [facility] [place] [address] Performing Lab: [facility] [place] [facility] [address] [facility] [address] P4 GLUCOSE 99 65 - 100 12/14 Specimen Type: PLASMA WHITE GLU,BUN,C [MASS/VOLUM /2021 Comment: Tests performed on Pham Nurse Licensed [employer]ractical (405) SN:[id number] RIVER REAT,LYTE E] IN SERUM Ordering Provider: ISATU TODD S,CA OR PLASMA Report Releas ed Date/Time: Dec 11, 2021 07:42 AM [facility] Reporting Lab: [place] [facility] [address] [facility] [address] Performing Lab: [place] [facility] [address] [facility] [address] P4 CREATININE 0.67 0.5 - 1.5 12/14 Specimen Ty pe: PLASMA WHITE GLU,BUN,C [MASS/VOLUM /2021 Comment: Tests performed on Pham Nurse Licensed [employer]ractical (405) SN:[id number] RIVER REKATHARINELYTE E] IN SERUM Ordering Provider: ISATU TODD S,CA OR PLASMA Report Releas ed Date/Time: Dec 11, 2021 07:42 AM [facility] Reporting Lab: [place] [facility] [address] [facility] [address] Performing Lab: [place] [facility] [address] [facility] [address] P4 CALCIUM 8.2 8.5 - 10.5 12/14 L Specimen Type : PLASMA WHITE GLU,BUN,C [MASS/VOLUM /2021 Comment: Tests performed on Pham Nurse Licensed Practical (405) SN:[id number] ANA MARIA HINTONTE E] IN SERUM Ordering Provider: ISATU TODD S,CA OR PLASMA Report Releas ed Date/Time: Dec 11, 2021 07:42 AM [facility] Reporting Lab: [facility] [address] [facility] [address] Performing Lab: [place] [facility] [address] [facility] [address] P4 eGFR(CKD-EP >90.0 60 12/14 Specimen Typ e: PLASMA WHITE GLU,BUN,C I /2021 Comment: Test s performed on Pham Nurse Licensed Practical (405) SN:[id number] ANA MARIA HINTONTE Ordering Prov ider: ISATU TODD S,CA Report Released Date/Time: Dec 11, 2021 07:42 AM [facility] Reporting Lab: [place] [place] [facility] [address] [facility] [address] Performing Lab: [facility] [place] [address] [place] [facility] [place] [address] CBC LEUKOCYTES 5.6 4.5 - 11.0 12/13 Specimen T ype: BLOOD WHITE PROFILE [#/VOLUME] /2021 No comment en tered. RIVER IN BLOOD BY Ordering Pr ovider: ISATU TODDT AUTOMATED Report Releas ed Date/Time: Dec 10, 2021 07:22 AM [facility] COUNT Reporting Lab: [facility] [place] [address] [place] [facility] [place] [address] Performing Lab: [facility] [place] [facility] [address] [place] [facility] [place] [address] CBC ERYTHROCYTE 4.28 4.23 - 12/13 Specimen Typ e: BLOOD WHITE PROFILE S 5.66 No comment enter ed. RIVER [#/VOLUME] Ordering Pro vider: ISATU TODDT IN BLOOD BY Report Rele ased Date/Time: Dec 10, 2021 07:22 AM [facility] AUTOMATED Reporting Lab : [place] COUNT [address] [place] [facility] [place] [address] Performing Lab: [facility] [place] [address] [place] [facility] [place] [address] CBC HEMOGLOBIN 11.0 12.8 - 17 12/13 L Specimen Ty pe: BLOOD WHITE PROFILE [MASS/VOLUM /2021 No comment e ntered. RIVER E] IN BLOOD Ordering Pr ovider: ISATU TODD Report Released Date/Time: Dec 10, 2021 07:22 AM [facility] Reporting Lab: [facility] [place] [facility] [address] [place] [facility] [place] [address] Performing Lab: [facility] [place] [address] [place] [facility] [place] [address] CBC HEMATOCRIT 35.4 39.2 - 12/13 L Specimen Type : BLOOD WHITE PROFILE [VOLUME 50.4 No comment enter ed. RIVER FRACTION] Ordering Prov ider: ISATU TODD [place] OF BLOOD BY Report Rele ased Date/Time: Dec 10, 2021 07:22 AM [facility] AUTOMATED Reporting Lab : [place] [facility] COUNT [address] [place] [facility] [place] [address] Performing Lab: [facility] [place] [facility] [address] [facility] [address] CBC MCV 82.7 82 - 99 12/13 Specimen Type: B LOOD WHITE PROFILE [ENTITIC /2021 No comment ente red. RIVER VOLUME] BY Ordering Pro vider: ISATU TODD [employer] AUTOMATED Report Releas ed Date/Time: Dec 10, 2021 07:22 AM [facility] COUNT Reporting Lab: [place] [facility] [address] [facility] [address] Performing Lab: [facility] [place] [facility] [address] [facility] [address] CBC MCH 25.7 26.2 - 12/13 L Specimen Type: B LOOD WHITE PROFILE [ENTITIC 32.6 No comment ente red. RIVER MASS] BY Ordering Provi nik: ISATU TODD AUTOMATED Report Releas ed Date/Time: Dec 10, 2021 07:22 AM [facility] COUNT Reporting Lab: [facility] [place] [facility] [address] [facility] [address] Performing Lab: [facility] [place] [address] [facility] [address] CBC MCHC 31.1 30.8 - 12/13 Specimen Type: B LOOD WHITE PROFILE [MASS/VOLUM 35.1 /2021 No comment e ntered. RIVER E] BY Ordering Provid er: ISATU TODD AUTOMATED Report Releas ed Date/Time: Dec 10, 2021 07:22 AM [facility] COUNT Reporting Lab: [facility] [address] [facility] [address] Performing Lab: [facility] [address] [facility] [address] CBC PLATELETS 165 140 - 360 12/13 Specimen Typ e: BLOOD WHITE PROFILE [#/VOLUME] /2021 No comment en tered. RIVER IN BLOOD BY Ordering Pr ovider: ISATU TODD AUTOMATED Report Releas ed Date/Time: Dec 10, 2021 07:22 AM [facility] COUNT Reporting Lab: [facility] [address] [facility] [address] Performing Lab: [facility] [address] [facility] [address] CBC PLATELET 9.5 9.2 - 12.4 12/13 Specimen Typ e: BLOOD WHITE PROFILE MEAN VOLUME /2021 No comment e ntered. RIVER [ENTITIC Ordering Provi nik: ISATU TODD E [place] VOLUME] IN Report Relea sed Date/Time: Dec 10, 2021 07:22 AM [facility] BLOOD BY Reporting Lab: [facility] [address] [place] [facility] [place] [address] COUNT Performing Lab: [facility] [address] [place] [facility] [place] [address] CBC ERYTHROCYTE 17.2 12.0 - 12/13 H Specimen Typ e: BLOOD WHITE PROFILE DISTRIBUTIO 16.0 No comment e ntered. RIVER N WIDTH Ordering Provid er: ISATU TODD E [place] [RATIO] BY Report Relea sed Date/Time: Dec 10, 2021 07:22 AM [facility] AUTOMATED Reporting Lab : [facility] COUNT [address] [place] [facility] [place] [address] Performing Lab: [facility] [address] [place] [facility] [place] [address] CBC LYMPHOCYTES 13.1 14.0 - 12/13 L Specimen Typ e: BLOOD WHITE PROFILE /100 42.3 /2021 No comment enter ed. RIVER LEUKOCYTES Ordering Pro vider: ISATU TODD E [place] IN BLOOD BY Report Rele ased Date/Time: Dec 10, 2021 07:22 AM [facility] AUTOMATED Reporting Lab : [facility] COUNT [address] [place] [facility] [place] [address] Performing Lab: [facility] [address] [place] [facility] [place] [address] CBC MONOCYTES/1 6.9 5.1 - 13.7 12/13 Specimen Type: BLOOD WHITE PROFILE No comment enter ed. RIVER LEUKOCYTES Ordering Pro vider: ISATU TODD E [place] IN BLOOD BY Report Rele ased Date/Time: Dec 10, 2021 07:22 AM [facility] AUTOMATED Reporting Lab : [facility] [address] [place] [facility] [place] [address] Performing Lab: [facility] [address] [place] [facility] [place] [address] CBC GRANULOCYTE 78.7 43.7 - 12/13 H Specimen Typ e: BLOOD WHITE PROFILE S/100 75.8 /2021 No comment enter ed. RIVER LEUKOCYTES Ordering Pro vider: ISATU TODD [place] IN BLOOD BY Report Rele ased Date/Time: Dec 10, 2021 07:22 AM [facility] AUTOMATED Reporting Lab : [facility] [address] [place] [facility] [place] [address] Performing Lab: [facility] [address] [place] [facility] [place] [address] CBC EOSINOPHILS 0.5 0.4 - 6.8 12/13 Specimen T ype: BLOOD WHITE PROFILE /100 /2021 No comment enter ed. RIVER LEUKOCYTES Ordering Pro vider: ISATU TODD [place] IN BLOOD BY Report Rele ased Date/Time: Dec 10, 2021 07:22 AM [facility] AUTOMATED Reporting Lab : [facility] [address] [place] [facility] [place] [address] Performing Lab: [facility] [address] [place] [facility] [place] [address] CBC BASOPHILS/1 0.4 0.1 - 2.0 12/13 Specimen T ype: BLOOD WHITE PROFILE 00 No comment enter ed. RIVER LEUKOCYTES Ordering Pro vider: ISATU TODD [place] IN BLOOD BY Report Rele ased Date/Time: Dec 10, 2021 07:22 AM [facility] AUTOMATED Reporting Lab : [facility] [address] [place] [facility] [place] [address] Performing Lab: [facility] [address] [place] [facility] [place] [address] CBC IMMATURE 0.4 0.0 - 0.7 12/13 Specimen Type : BLOOD WHITE PROFILE GRANULOCYTE /2021 No comment e ntered. RIVER S/100 Ordering Provid er: ISATU TODD LEUKOCYTES Report Relea sed Date/Time: Dec 10, 2021 07:22 AM [facility] IN BLOOD BY Reporting L ab: [facility] [address] [place] [facility] [place] [address] COUNT Performing Lab: [facility] [address] [place] [facility] [place] [address] CBC NUCLEATED 0.0 0.0 - 0.0 12/13 Specimen Typ e: BLOOD WHITE PROFILE ERYTHROCYTE No comment e ntered. RIVER S Ordering Provid er: ISATU TODDT [#/VOLUME] Report Relea sed Date/Time: Dec 10, 2021 07:22 AM [facility] IN BLOOD BY Reporting L ab: [facility] [address] [place] [facility] [place] [address] COUNT Performing Lab: [facility] [address] [place] [facility] [place] [address] CBC IMMATURE 0.0 0 - 0.06 12/13 Specimen Type: BLOOD WHITE PROFILE No comment e ntered. RIVER S Ordering Provid er: ISATU TODDT [#/VOLUME] Report Relea sed Date/Time: Dec 10, 2021 07:22 AM [facility] IN BLOOD Reporting Lab: [facility] [address] [place] [facility] [place] [address] Performing Lab: [facility] [address] [place] [facility] [place] [address] CBC BASOPHILS 0.0 0.01 - 12/13 L Specimen Type: BLOOD WHITE PROFILE [#/VOLUME] 0.13 No comment en tered. RIVER IN BLOOD BY Ordering Pr ovider: ISATU TODD AUTOMATED Report Releas ed Date/Time: Dec 10, 2021 07:22 AM [facility] COUNT Reporting Lab: [facility] [address] [place] [facility] [place] [address] Performing Lab: [facility] [address] [place] [facility] [place] [address] CBC EOSINOPHILS 0.0 0.03 - 12/13 L Specimen Typ e: BLOOD WHITE PROFILE [#/VOLUME] 0.44 No comment en tered. RIVER IN BLOOD BY Ordering Pr ovider: ISATU TODD AUTOMATED Report Releas ed Date/Time: Dec 10, 2021 07:22 AM [facility] COUNT Reporting Lab: [facility] [address] [place] [facility] [place] [address] Performing Lab: [facility] [address] [place] [facility] [place] [address] CBC LYMPHOCYTES 0.7 1.0 - 3.2 12/13 L Specimen T ype: BLOOD WHITE PROFILE [#/VOLUME] /2021 No comment en tered. RIVER IN BLOOD BY Ordering Pr ovider: ISATU TODD E [place] AUTOMATED Report Releas ed Date/Time: Dec 10, 2021 07:22 AM [facility] COUNT Reporting Lab: [facility] [address] [place] [facility] [place] [address] Performing Lab: [facility] [address] [place] [facility] [place] [address] CBC MONOCYTES 0.4 0.3 - 1.1 12/13 Specimen Typ e: BLOOD WHITE PROFILE [#/VOLUME] /2021 No comment en tered. RIVER IN BLOOD BY Ordering Pr ovider: ISATU TODD [place] AUTOMATED Report Releas ed Date/Time: Dec 10, 2021 07:22 AM [facility] COUNT Reporting Lab: [facility] [address] [facility] [address] Performing Lab: [facility] [address] [facility] [address] CBC NEUTROPHILS 4.4 2.2 - 7.6 12/13 Specimen T ype: BLOOD WHITE PROFILE [#/VOLUME] /2021 No comment en tered. RIVER IN BLOOD BY Ordering Pr ovider: ISATU TODD [place] AUTOMATED Report Releas ed Date/Time: Dec 10, 2021 07:22 AM [facility] COUNT Reporting Lab: [facility] [address] [place] [facility] [place] [address] Performing Lab: [facility] [address] [place] [facility] [place] [address] CBC NUCLEATED 0.00 0 - 0 12/13 Specimen Type: BLOOD WHITE PROFILE ERYTHROCYTE No comment e ntered. RIVER S Ordering Provid er: ISATU TODD [place] [#/VOLUME] Report Relea sed Date/Time: Dec 10, 2021 07:22 AM [facility] IN BLOOD BY Reporting L ab: [facility] [address] [place] [facility] [place] [address] COUNT Performing Lab: [facility] [address] [place] [facility] [place] [address] P4 UREA 12 7 - 12/13 Specimen Type: P LASMA WHITE GLU,BUN,C NITROGEN /2021 Comment: Garima ts performed on Ph[employer] Nurse Licensed Practical (405) SN:[id number] ANA MARIA HINTONTE [MASS/VOLUM Ordering Provider: ISATU TODD SJUDITH E] IN SERUM Report Rele ased Date/Time: Dec 11, 2021 07:42 AM [facility] OR PLASMA Reporting Lab : [facility] [address] [facility] [address] Performing Lab: [facility] [address] [facility] [address] P4 SODIUM 136 135 - 145 12/13 Specimen Type: PLASMA WHITE GLU,BUN,C [MOLES/VOLU /2021 Comment: Tests performed on Pham Nurse Licensed Practical (405) SN:[id number] VIVEK LUNALYTE ME] IN Ordering Prov ider: ISATU TODD S,CA SERUM OR Report Release d Date/Time: Dec 11, 2021 07:42 AM [facility] PLASMA Reporting Lab: [facility] [address] [facility] [address] Performing Lab: [facility] [address] [facility] [address] P4 POTASSIUM 3.9 3.5 - 5.0 12/13 Specimen Typ e: PLASMA WHITE GLU,BUN,C [MOLES/VOLU /2021 Comment: Tests performed on Pham Nurse Licensed Practical (405) SN:[id number] RIVER RAYMUNDOATLYTE ME] IN Ordering Prov ider: ISATU TODD S,CA SERUM OR Report Release d Date/Time: Dec 11, 2021 07:42 AM [facility] PLASMA Reporting Lab: [facility] [place] [facility] [address] [facility] [address] Performing Lab: [facility] [place] [facility] [facility] [address] [facility] [address] P4 CHLORIDE 105 100 - 110 12/13 Specimen Type : PLASMA WHITE GLU,BUN,C [MOLES/VOLU /2021 Comment: Tests performed on Pham Nurse Licensed Practical (405) SN:[id number] RIVER RAYMUNDOATLYTE ME] IN Ordering Prov ider: ISATU TODD S,CA SERUM OR Report Release d Date/Time: Dec 11, 2021 07:42 AM [facility] PLASMA Reporting Lab: [facility] [address] [facility] [address] Performing Lab: [facility] [address] [place] [facility] [place] [address] P4 CARBON 24 20 - 30 12/13 Specimen Type: P LASMA WHITE GLU,BUN,C DIOXIDE, /2021 Comment: Garima ts performed on Pham [employer] (405) SN:[id number] RIVER REAT,LYTE TOTAL Ordering Prov ider: ISATU TODD SCA [MOLES/VOLU Report Rele ased Date/Time: Dec 11, 2021 07:42 AM [facility]] IN Reporting Lab: [facility] [place] [facility] SERUM OR [address] [facility] [address] PLASMA Performing Lab: [facility] [address] [facility] [address] P4 ANION GAP 7 4 - 16 12/13 Specimen Type: PLASMA WHITE GLU,BUN,C IN SERUM OR /2021 Comment: Tests performed on [employer] (405) SN:[id number] RIVER REAT,LYTE PLASMA Ordering Prov ider: ISATU TODD SCA Report Released Date/Time: Dec 11, 2021 07:42 AM [facility] Reporting Lab: [facility] [place] [facility] [address] [facility] [address] Performing Lab: [facility] [address] [facility] [address] P4 GLUCOSE 102 65 - 100 12/13 H Specimen Type: PLASMA WHITE GLU,BUN,C [MASS/VOLUM /2021 Comment: Tests performed on [employer] (405) SN:[id number] RIVER REAT,LYTE E] IN SERUM Ordering Provider: ISATU TODD SCA OR PLASMA Report Releas ed Date/Time: Dec 11, 2021 07:42 AM [facility] Reporting Lab: [facility] [address] [facility] [address] Performing Lab: [facility] [address] [facility] [address] P4 CREATININE 0.66 0.5 - 1.5 12/13 Specimen Ty pe: PLASMA WHITE GLU,BUN,C [MASS/VOLUM /2021 Comment: Tests performed on Pham Nurse Licensed Practical (405) SN:[id number] RIVER REAT,LYTE E] IN SERUM Ordering Provider: ISATU TODD S,CA OR PLASMA Report Releas ed Date/Time: Dec 11, 2021 07:42 AM [facility] Reporting Lab: [facility] [address] [facility] [address] Performing Lab: [facility] [address] [facility] [address] P4 CALCIUM 8.3 8.5 - 10.5 12/13 L Specimen Type : PLASMA WHITE GLU,BUN,C [MASS/VOLUM /2021 Comment: Tests performed on Pham Nurse Licensed Practical (405) SN:[id number] RIVER REAT,LYTE E] IN SERUM Ordering Provider: ISATU TODDT S,CA OR PLASMA Report Releas ed Date/Time: Dec 11, 2021 07:42 AM [facility] Reporting Lab: [facility] [address] [facility] [address] Performing Lab: [facility] [address] [facility] [address] P4 eGFR(CKD-EP >90.0 60 12/13 Specimen Typ e: PLASMA WHITE GLU,BUN,C I 2020) /2021 Comment: Test s performed on Pham Nurse Licensed Practical (405) SN:[id number] RIVER REAT,LYTE Ordering Prov ider: ISATU TODD S,CA Report Released Date/Time: Dec 11, 2021 07:42 AM [facility] Reporting Lab: [facility] [address] [facility] [address] Performing Lab: [facility] [address] [facility] [address] CBC LEUKOCYTES 5.5 4.5 - 11.0 12/12 Specimen T ype: BLOOD WHITE PROFILE [#/VOLUME] /2021 No comment en tered. RIVER IN BLOOD BY Ordering Pr ovider: ISATU TODD AUTOMATED Report Releas ed Date/Time: Dec 10, 2021 07:22 AM [facility] COUNT Reporting Lab: [facility] [address] [facility] [address] Performing Lab: [facility] [address] [place] [facility] [place] [address] CBC ERYTHROCYTE 4.37 4.23 - 12/12 Specimen Typ e: BLOOD WHITE PROFILE S 5.66 No comment enter ed. RIVER [#/VOLUME] Ordering Pro vider: ISATU TODDT IN BLOOD BY Report Rele ased Date/Time: Dec 10, 2021 07:22 AM [facility] AUTOMATED Reporting Lab : [facility] [address] [place] [facility] [place] [address] Performing Lab: [facility] [address] [place] [facility] [place] [address] CBC HEMOGLOBIN 11.1 12.8 - 17 12/12 L Specimen Ty pe: BLOOD WHITE PROFILE [MASS/VOLUM /2021 No comment e ntered. RIVER E] IN BLOOD Ordering Pr ovider: ISATU TODD Report Released Date/Time: Dec 10, 2021 07:22 AM [facility] Reporting Lab: [facility] [address] [place] [facility] [place] [address] Performing Lab: [facility] [address] [place] [facility] [place] [address] CBC HEMATOCRIT 36.4 39.2 - 12/12 L Specimen Type : BLOOD WHITE PROFILE [VOLUME 50.4 No comment enter ed. RIVER FRACTION] Ordering Prov ider: ISATU TODDT OF BLOOD BY Report Rele ased Date/Time: Dec 10, 2021 07:22 AM [facility] AUTOMATED Reporting Lab : [facility] [address] [place] [facility] [place] [address] Performing Lab: [facility] [address] [place] [facility] [place] [address] CBC MCV 83.3 82 - 99 12/12 Specimen Type: B LOOD WHITE PROFILE [ENTITIC /2021 No comment ente red. RIVER VOLUME] BY Ordering Pro vider: ISATU TODD [place] AUTOMATED Report Releas ed Date/Time: Dec 10, 2021 07:22 AM [facility] COUNT Reporting Lab: [facility] [address] [place] [facility] [place] [address] Performing Lab: [facility] [address] [place] [facility] [place] [address] CBC MCH 25.4 26.2 - 12/12 L Specimen Type: B LOOD WHITE PROFILE [ENTITIC 32.6 /2021 No comment ente red. RIVER MASS] BY Ordering Provi nik: ISATU TODD E [place] AUTOMATED Report Releas ed Date/Time: Dec 10, 2021 07:22 AM [facility] COUNT Reporting Lab: [facility] [address] [facility] [address] Performing Lab: [facility] [address] [facility] [address] CBC MCHC 30.5 30.8 - 12/12 L Specimen Type: B LOOD WHITE PROFILE [MASS/VOLUM 35.1 /2021 No comment e ntered. RIVER E] BY Ordering Provid er: ISATU TODD E [place] AUTOMATED Report Releas ed Date/Time: Dec 10, 2021 07:22 AM [facility] COUNT Reporting Lab: [facility] [address] [facility] [address] Performing Lab: [facility] [address] [facility] [address] CBC PLATELETS 165 140 - 360 12/12 Specimen Typ e: BLOOD WHITE PROFILE [#/VOLUME] /2021 No comment en tered. RIVER IN BLOOD BY Ordering Pr ovider: ISATU TODD E [place] AUTOMATED Report Releas ed Date/Time: Dec 10, 2021 07:22 AM [facility] COUNT Reporting Lab: [facility] [address] [facility] [address] Performing Lab: [facility] [address] [facility] [address] CBC PLATELET 9.0 9.2 - 12.4 12/12 L Specimen Typ e: BLOOD WHITE PROFILE MEAN VOLUME /2021 No comment e ntered. RIVER [ENTITIC Ordering Provi nik: ISATU TODD E [place] VOLUME] IN Report Relea sed Date/Time: Dec 10, 2021 07:22 AM [facility] BLOOD BY Reporting Lab: [facility] [place] [address] [facility] [address] COUNT Performing Lab: [facility] [address] [facility] [address] CBC ERYTHROCYTE 17.0 12.0 - 12/12 H Specimen Typ e: BLOOD WHITE PROFILE DISTRIBUTIO 16.0 /2021 No comment e ntered. RIVER N WIDTH Ordering Provid er: ISATU TODD [place] [RATIO] BY Report Armandoa sed Date/Time: Dec 10, 2021 07:22 AM [facility] AUTOMATED Reporting Lab : [facility] [place] [address] [facility] [address] Performing Lab: [facility] [address] [facility] [address] CBC LYMPHOCYTES 12.2 14.0 - 12/12 L Specimen Typ e: BLOOD WHITE PROFILE /100 42.3 /2021 No comment enter ed. RIVER LEUKOCYTES Ordering Pro vider: ISATU TODD [place] IN BLOOD BY Report Rele ased Date/Time: Dec 10, 2021 07:22 AM [facility] AUTOMATED Reporting Lab : [facility] [place] [facility] [address] [facility] [address] Performing Lab: [facility] [address] [facility] [address] CBC MONOCYTES/1 7.5 5.1 - 13.7 12/12 Specimen Type: BLOOD WHITE PROFILE 00 No comment enter ed. RIVER LEUKOCYTES Ordering Pro vider: ISATU TODD [place] IN BLOOD BY Report Rele ased Date/Time: Dec 10, 2021 07:22 AM [facility] AUTOMATED Reporting Lab : [facility] [place] [facility] [address] [facility] [address] Performing Lab: [facility] [address] [facility] [address] CBC GRANULOCYTE 78.9 43.7 - 12/12 H Specimen Typ e: BLOOD WHITE PROFILE S/100 75.8 /2021 No comment enter ed. RIVER LEUKOCYTES Ordering Pro vider: ISATU TODD [place] IN BLOOD BY Report Rele ased Date/Time: Dec 10, 2021 07:22 AM [facility] AUTOMATED Reporting Lab : [facility] [place] [address] [facility] [address] Performing Lab: [facility] [address] [facility] [address] CBC EOSINOPHILS 0.7 0.4 - 6.8 12/12 Specimen T ype: BLOOD WHITE PROFILE /100 /2021 No comment enter ed. RIVER LEUKOCYTES Ordering Pro vider: ISATU TODD [place] IN BLOOD BY Report Rele ased Date/Time: Dec 10, 2021 07:22 AM [facility] AUTOMATED Reporting Lab : [facility] [place] [address] [facility] [address] Performing Lab: [facility] [address] [facility] [address] CBC BASOPHILS/1 0.2 0.1 - 2.0 12/12 Specimen T ype: BLOOD WHITE PROFILE 00 No comment enter ed. RIVER LEUKOCYTES Ordering Pro vider: ISATU TODDT IN BLOOD BY Report Rele ased Date/Time: Dec 10, 2021 07:22 AM [facility] AUTOMATED Reporting Lab : [facility] [place] [address] [facility] [address] Performing Lab: [facility] [address] [facility] [address] CBC IMMATURE 0.5 0.0 - 0.7 12/12 Specimen Type : BLOOD WHITE PROFILE GRANULOCYTE No comment e ntered. RIVER S/100 Ordering Provid er: ISATU TODD LEUKOCYTES Report Relea sed Date/Time: Dec 10, 2021 07:22 AM [facility] IN BLOOD BY Reporting L ab: [facility] [place] [address] [facility] [address] COUNT Performing Lab: [facility] [place] [address] [place] [facility] [place] [address] CBC NUCLEATED 0.0 0.0 - 0.0 12/12 Specimen Typ e: BLOOD WHITE PROFILE No comment e ntered. RIVER S Ordering Provid er: ISATU TODDT [#/VOLUME] Report Relea sed Date/Time: Dec 10, 2021 07:22 AM [facility] IN BLOOD BY Reporting L ab: [facility] [place] [address] [place] [facility] [place] [address] COUNT Performing Lab: [facility] [address] [place] [facility] [place] [address] CBC IMMATURE 0.0 0 - 0.06 12/12 Specimen Type: BLOOD WHITE PROFILE GRANULOCYTE No comment e ntered. RIVER S Ordering Provid er: ISATU TODDT [#/VOLUME] Report Relea sed Date/Time: Dec 10, 2021 07:22 AM [facility] IN BLOOD Reporting Lab: [facility] [address] [place] [facility] [place] [address] Performing Lab: [facility] [place] [address] [place] [facility] [place] [address] CBC BASOPHILS 0.0 0.01 - 12/12 L Specimen Type: BLOOD WHITE PROFILE [#/VOLUME] 0.13 No comment en tered. RIVER IN BLOOD BY Ordering Pr ovider: ISATU TODD AUTOMATED Report Releas ed Date/Time: Dec 10, 2021 07:22 AM [facility] COUNT Reporting Lab: [facility] [address] [place] [facility] [place] [address] Performing Lab: [facility] [address] [place] [facility] [place] [address] CBC EOSINOPHILS 0.0 0.03 - 12/12 L Specimen Typ e: BLOOD WHITE PROFILE [#/VOLUME] 0.44 No comment en tered. RIVER IN BLOOD BY Ordering Pr ovider: ISATU TODD AUTOMATED Report Releas ed Date/Time: Dec 10, 2021 07:22 AM [facility] COUNT Reporting Lab: [facility] [address] [place] [facility] [place] [address] Performing Lab: [facility] [address] [place] [facility] [place] [address] CBC LYMPHOCYTES 0.7 1.0 - 3.2 12/12 L Specimen T ype: BLOOD WHITE PROFILE [#/VOLUME] /2021 No comment en tered. RIVER IN BLOOD BY Ordering Pr ovider: ISATU TODD AUTOMATED Report Releas ed Date/Time: Dec 10, 2021 07:22 AM [facility] COUNT Reporting Lab: [facility] [address] [place] [facility] [place] [address] Performing Lab: [facility] [address] [place] [facility] [place] [address] CBC MONOCYTES 0.4 0.3 - 1.1 12/12 Specimen Typ e: BLOOD WHITE PROFILE [#/VOLUME] /2021 No comment en tered. RIVER IN BLOOD BY Ordering Pr ovider: ISATU TODD AUTOMATED Report Releas ed Date/Time: Dec 10, 2021 07:22 AM [facility] COUNT Reporting Lab: [facility] [address] [facility] [address] Performing Lab: [facility] [place] [address] [facility] [address] CBC NEUTROPHILS 4.3 2.2 - 7.6 12/12 Specimen T ype: BLOOD WHITE PROFILE [#/VOLUME] /2021 No comment en tered. RIVER IN BLOOD BY Ordering Pr ovider: ISATU TODD AUTOMATED Report Releas ed Date/Time: Dec 10, 2021 07:22 AM [facility] COUNT Reporting Lab: [facility] [address] [facility] [address] Performing Lab: [facility] [place] [address] [facility] [address] CBC NUCLEATED 0.00 0 - 0 12/12 Specimen Type: BLOOD WHITE PROFILE ERYTHROCYTE /2021 No comment e ntered. RIVER S Ordering Provid er: ISATU TODD [#/VOLUME] Report Relea sed Date/Time: Dec 10, 2021 07:22 AM [facility] IN BLOOD BY Reporting L ab: [facility] [place] [address] [facility] [address] COUNT Performing Lab: [facility] [address] [facility] [address] P4 UREA 11 - 12/12 Specimen Type: P LASMA WHITE GLU,BUN,C NITROGEN /2021 Comment: Gariam ts performed on [place] Nurse [employer]ractical (405) SN:[id number] RIVER REAT,LYTE [MASS/VOLUM Ordering Provider: ISATU TODD S,CA E] IN SERUM Report Rele ased Date/Time: Dec 11, 2021 07:42 AM [facility] OR PLASMA Reporting Lab : [facility] [address] [place] [facility] [place] [address] Performing Lab: [facility] [address] [facility] [address] P4 SODIUM 139 135 - 145 12/12 Specimen Type: PLASMA WHITE GLU,BUN,C [MOLES/VOLU /2021 Comment: Tests performed on Pham Nurse [employer]ractical (405) SN:[id number] RIVER REAT,LYTE MT] IN Ordering Prov ider: ISATU TODDT S,CA SERUM OR Report Release d Date/Time: Dec 11, 2021 07:42 AM [facility] PLASMA Reporting Lab: [facility] [address] [facility] [address] Performing Lab: [facility] [address] [facility] [address] P4 POTASSIUM 4.1 3.5 - 5.0 12/12 Specimen Typ e: PLASMA WHITE GLU,BUN,C [MOLES/VOLU /2021 Comment: Tests performed on Pham Nurse Licensed [employer]ractical (405) SN:[id number] RIVER REAT,LYTE MT] IN Ordering Prov ider: ISATU TODD S,CA SERUM OR Report Release d Date/Time: Dec 11, 2021 07:42 AM [facility] PLASMA Reporting Lab: [facility] [address] [facility] [address] Performing Lab: [facility] [address] [facility] [address] P4 CHLORIDE 107 100 - 110 12/12 Specimen Type : PLASMA WHITE GLU,BUN,C [MOLES/VOLU /2021 Comment: Tests performed on Pham Nurse Licensed [employer]ractical (405) SN:[id number] RIVER REAT,LYTE MT] IN Ordering Prov ider: ISATU TODD S,CA SERUM OR Report Release d Date/Time: Dec 11, 2021 07:42 AM [facility] PLASMA Reporting Lab: [facility] [address] [facility] [address] Performing Lab: [facility] [address] [facility] [address] P4 CARBON 24 20 - 30 12/12 Specimen Type: P THERESE WHITE GLU,BUN,C DIOXIDE, /2021 Comment: Garima ts performed on Pham Nurse Licensed [employer]ractical (405) SN:[id number] RIVER REAT,LYTE [facility] Ordering Prov ider: ISATU TODDT S,CA [MOLES/VOLU Report Rele ased Date/Time: Dec 11, 2021 07:42 AM [facility] ME] IN Reporting Lab: [facility] SERUM OR [address] [facility] [address] PLASMA Performing Lab: [place] [place] [facility] [facility] [address] [facility] [address] P4 ANION GAP 8 4 - 16 12/12 Specimen Type: PLASMA WHITE GLU,BUN,C IN SERUM OR /2021 Comment: Tests performed on Pham Nurse Licensed [employer]ractical (405) SN:[id number] RIVER REAT,LYTE PLASMA Ordering Prov ider: ISATU TODD S,CA Report Released Date/Time: Dec 11, 2021 07:42 AM [facility] Reporting Lab: [facility] [address] [facility] [address] Performing Lab: [facility] [address] [facility] [address] P4 GLUCOSE 110 65 - 100 12/12 H Specimen Type: PLASMA WHITE GLU,BUN,C [MASS/VOLUM /2021 Comment: Tests performed on Pham Nurse Licensed Practical (405) SN:[id number] RIVER REAT,LYTE E] IN SERUM Ordering Provider: ISATU TODD S,CA OR PLASMA Report Releas ed Date/Time: Dec 11, 2021 07:42 AM [facility] Reporting Lab: [facility] [address] [place] [facility] [place] [place] [address] Performing Lab: [facility] [address] [facility] [address] P4 CREATININE 0.70 0.5 - 1.5 12/12 Specimen Ty pe: PLASMA WHITE GLU,BUN,C [MASS/VOLUM /2021 Comment: Tests performed on Pham Nurse Licensed Practical (405) SN:[id number] RIVER REAT,LYTE E] IN SERUM Ordering Provider: ISATU TODD SCA OR PLASMA Report Releas ed Date/Time: Dec 11, 2021 07:42 AM [facility] Reporting Lab: [facility] [address] [place] [facility] [place] [place] [address] Performing Lab: [facility] [address] [facility] [address] P4 CALCIUM 8.3 8.5 - 10.5 12/12 L Specimen Type : PLASMA WHITE GLU,BUN,C [MASS/VOLUM /2021 Comment: Tests performed on Pham [employer] (405) SN:[id number] RIVER REATLYTE E] IN SERUM Ordering Provider: ISATU TODD S,CA OR PLASMA Report Rele ed Date/Time: Dec 11, 2021 07:42 AM [facility] Reporting Lab: [facility] [address] [facility] [address] Performing Lab: [facility] [address] [facility] [address] P4 eGFR(CKD-EP >90.0 60 12/12 Specimen Typ e: PLASMA WHITE GLU,BUN,C I 2020) /2021 Comment: Test s performed on Pham Nurse Licensed Practical (405) SN:[id number] VIVEK LUNALYTE Ordering Prov ider: ISATU TODD S,CA Report Released Date/Time: Dec 11, 2021 07:42 AM [facility] Reporting Lab: [facility] [address] [facility] [address] Performing Lab: [facility] [address] [facility] [address] MAGNESIUM MAGNESIUM 1.8 1.6 - 2.6 12/12 Specimen T ype: PLASMA WHITE [MASS/VOLUM /2021 Comment: Te sting Performed on Pham Nurse Licensed Practical (405) SN:[id number] RIVER E] IN SERUM Ordering Pr ovider: ISATU TODD OR PLASMA Report [facility] ed Date/Time: Dec 12, 2021 08:24 AM [facility] Reporting Lab: [facility] [address] [facility] [address] Performing Lab: [facility] [address] [facility] [address] Vital Signs Combined list of inpatient and outpatient Vital Signs from [facility] [employer] and [facility] Affairs, ranging from 12 months to all on record, depending upon the facility. Vital Sign Value Date Comments Source SYSTOLIC BLOOD PRESSURE 134 12/15/2021 05:01:23 [facility] DIASTOLIC BLOOD PRESSURE 71 12/15/2021 05:01:23 [facility] PULSE OXIMETRY 97% 12/15/2021 05:01:23 [facility] PAIN 0 12/15/2021 05:01:23 [facility] [place] [facility] TEMPERATURE 96.9 12/15/2021 05:01:23 [facility] [place] [facility] PULSE 93 12/15/2021 05:01:23 [place] [place] [facility] RESPIRATION 18 12/15/2021 05:01:23 [place] [facility] SYSTOLIC BLOOD PRESSURE 135 12/14/2021 05:23:47 [facility] DIASTOLIC BLOOD PRESSURE 68 12/14/2021 05:23:47 [facility] PULSE OXIMETRY 99% 12/14/2021 05:23:47 [facility] PAIN 0 12/14/2021 05:23:47 [place] [facility] TEMPERATURE 97.3 12/14/2021 05:23:47 [place] [place] [facility] PULSE 74 12/14/2021 05:23:47 [place] [place] [facility] RESPIRATION 16 12/14/2021 05:23:47 [place] [place] [facility] SYSTOLIC BLOOD PRESSURE 132 12/13/2021 05:14:59 [facility] DIASTOLIC BLOOD PRESSURE 81 12/13/2021 05:14:59 [facility] PULSE OXIMETRY 98% 12/13/2021 05:14:59 [facility] WEIGHT 232.9 12/13/2021 05:14:59 [facility] [place] [facility] BMI 32kg/m2 12/13/2021 05:14:59 [facility] [place] [facility] PAIN 0 12/13/2021 05:14:59 [facility] [place] [facility] TEMPERATURE 97.8 12/13/2021 05:14:59 [facility] [place] [facility] PULSE 75 12/13/2021 05:14:59 [facility] [place] [facility] RESPIRATION 18 12/13/2021 05:14:59 [facility] [place] [facility] SYSTOLIC BLOOD PRESSURE 128 12/12/2021 05:00:48 [facility] DIASTOLIC BLOOD PRESSURE 74 12/12/2021 05:00:48 [facility] PULSE OXIMETRY 98% 12/12/2021 05:00:48 [facility] WEIGHT 232.2 12/12/2021 05:00:48 [facility] [place] [facility] [facility] BMI 32kg/m2 12/12/2021 05:00:48 [facility] [facility] PAIN 0 12/12/2021 05:00:48 [facility] [facility] TEMPERATURE 97.2 12/12/2021 05:00:48 [facility] [facility] PULSE 95 12/12/2021 05:00:48 [facility] [place] [facility] RESPIRATION 18 12/12/2021 05:00:48 [facility] [place] [facility] SYSTOLIC BLOOD PRESSURE 126 12/11/2021 05:21:07 [facility] DIASTOLIC BLOOD PRESSURE 74 12/11/2021 05:21:07 [facility] PULSE OXIMETRY 97% 12/11/2021 05:21:07 [facility] WEIGHT 231.9 12/11/2021 05:21:07 [place] [facility] BMI 32kg/m2 12/11/2021 05:21:07 [facility] [place] [facility] PAIN 0 12/11/2021 05:21:07 [facility] [place] [facility] TEMPERATURE 97.4 12/11/2021 05:21:07 [facility] PULSE 98 12/11/2021 05:21:07 [facility] RESPIRATION 16 12/11/2021 05:21:07 [facility] [facility] Encounters Combined list of: 1) Encounters from Department of Veterans Affairs facilities going back up to the last 18 months, not all VA inpatient encounters are included; 2) Encounters from the Department of Defense facilities going back up to 280 months. Location Location Encounter Encounter Reason Attending ADM MD Stat us Disposition Source Details Type Number For Provider Date Date Visit Outpatient 54656-5.40 08/31 DENICE Samayoa Encounter [id number] [facility] OFFICE O/P 60073-7.40 UZMA Blanca 09/[address][id number] is: JASON JOHNS 40-54 MIN 35 ICD-10- [facility] CM M54.5 Low back pain
with Provide r Comment s: Low back pain (SCT 9669317 07) Outpatient 92756-9.40 09/08 WHIT E Encounter [id number] [facility] Outpatient 99953-4.40 09/22 WHIT E Encounter [id number] /2020 [facility] Outpatient 38635-9.40 09/22 WHIT E Encounter [id number] /2020 [facility] Outpatient 01047-7.40 09/23 WHIT E Encounter [id number] /2020 [facility] Outpatient 55534-0.40 09/24 WHIT E Encounter [id number] /2020 [facility] Outpatient 56738-7.40 09/27 WHIT E Encounter [id number] /2020 [facility] Outpatient 91787-1.40 09/28 WHIT E Encounter [id number] /2020 [facility] Outpatient 59383-6.40 09/30 WHIT E Encounter [id number] /2020 [facility] Outpatient 56633-6.40 10/19 WHIT E Encounter [id number] /2020 [facility] Outpatient 38650-3.40 10/22 WHIT E Encounter [id number] /2020 [facility] Outpatient 34385-4.40 10/22 WHIT E Encounter [id number] /2020 [facility] OFF[facility] 80306-7.40 Diagnos [facility] 10/28 W LORI [facility]AT[facility] [id number] is: Y J RIVE R ON ICD-10- [place] CM [facility] L40.9 Psorias is, unspeci fied
with Provide r Comment s: Psorias is, unspeci fied MTMS BY Diagnos Amy FORRESTER 10/29 [facility] [id number] is: OLIVIER R /2020 [place] 15 MIN ICD-10- [place] CM [facility] M25.50 Pain in unspeci fied joint<b r/>with Provide r Comment s: Joint pain (SCT 4389440 2) Outpatient 38267-9.40 11/01 WHIT E Encounter [id number] [facility] Outpatient 98584-5.40 11/05 WHIT E Encounter [id number] [facility] Outpatient 15005-1.40 11/11 WH[facility] Encounter [id number] [facility] 62499-4.40 Diagnos TIARA KLEIN 11/19 W [facility] [id number] is: JOSE A RIVE R ON ICD-10- [place] CM [facility] D48.5 Neoplas m of uncerta in behavio r of skin
with Provide r Comment s: Neoplas m,Skin, Uncerta in Behavio r Outpatient 05137-1.40 11/19 [facility] [id number] [place] [facility] 25942-5.40 NATHEN, 11/23 WHITE Encounter [id number] [facility] 34707-3.40 12/09 WH[facility] En[facility] [id number] [facility]/P 65216-6.40 Diagnos WILLIAM,N 12/13 WHITE EST LOW [id number] is: SHANNON J [place] 20-29 MIN ICD-10- [place] CM [facility] D48.5 Neoplas m of uncerta in behavio r of skin
with Provide r Comment s: Neoplas m of Uncerta in Behavio r of other specifi ed sites of the Oral Cavity - Neoplas m of uncerta in behavio r of skin (ICD-10 -CM D48.5) Outpatient 32064-4.40 12/13 WHIT E Encounter [id number] /2021 [facility] Outpatient 51322-1.40 NATHEN, 12/15 WHITE Encounter [id number] [facility] Outpatient 82483-0.40 PAUL, 12/15 WHITE Encounter [id number] [facility] Outpatient 46216-9.40 12/16 WHIT E Encounter [id number] [facility] Outpatient 09558-9.40 12/22 WHIT E Encounter [id number] /2020 [facility] Outpatient Diagnos WILLIAM,N 12/22 WHITE Encounter [id number] is: SHANNON J RIVE R ICD-10- [place] CM [facility] 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
Provide r Comment s: Suture Removal Outpatient 02/10 WH[facility] E Encounter [id number] /2020 [facility] OFFICE O/P Diagnos JORDEN BENAVIDEZ 02/24 WHITE EST MOD 5.52713696 is: NA D [place] 30-39 MIN ICD-10- [place] CM [facility] Z96.1 Presenc e of intraoc ular lens
with Provide r Comment s: Presenc e of Intraoc ular Lens (ICD-10 -CM Z96.1) REPAIR & Diagnos COTYSON 03/11 WHITE ADJUST 5.74611127 is: JA [place] SPECTACLES ICD-10- [place] CM [facility] Z46.0 Encount er for fit/adj st of spectac les and contact lenses< br/>wit h Provide r Comment s: Encount er for Fitting and Adjustm ent of Spectac les and Contact Lenses Outpatient 07783-503/14 WHIT E Encounter [id number] /2020 [facility] OFFICE O/P Diagnos RUSTYMARLOUZMA 05/16 ST. 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<b r/>with Provide r Comment s: Spinal stenosi s of lumbar region (SNOMED CT 6522055 7) Outpatient 00699-805/17 WHIT E Encounter [id number] /2020 [facility] Outpatient 39149-240 05/17 WHIT E Encounter [id number] /2020 [facility] Outpatient 64839-7.40 06/09 WHIT E Encounter [id number] /2020 [facility] Outpatient 14931-040 06/09 WHIT E Encounter [id number] /2020 [facility] Outpatient 46564-8.40 06/13 WHIT E Encounter [id number] /2020 [facility] Outpatient 76413-340 06/13 WHIT E Encounter [id number] /2020 [facility] Outpatient 16281-4.40 07/07 WHIT E Encounter [id number] /2021 [facility] Outpatient 93653-7.40 07/08 WHIT E Encounter [id number] /2021 [facility] Outpatient 38388-8.40 07/08 NEWP ORT Encounter [id number].[id number] /[facility] O/P Diagnos TIARA KLEIN 07/18 WHITE EST MOD 5.55838463 is: JOSE A /2021 [facility] 30-39 MIN ICD-10- [facility] [facility] 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
with Provide r Comment s: Persona l Hx of Malig Melanom a of Skin Outpatient 07/18 WHIT E Encounter [id number] /2021 [facility] OFFICE O/P 89206-0 Diagnos [facility] 07/18 WHITE EST MOD 5.15481641 is: Y J /2021 [place] 30-39 MIN ICD-10- [facility] [facility] M19.91 Primary osteoar thritis , unspeci fied site
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 (SNOMED CT 8930564 1854538 06) Outpatient 54512-8.40 09/05 WHIT E Encounter [id number] /2022 [facility] Outpatient 16934-8.40 PAUL, 09/07 WHITE Encounter [id number] [facility] Outpatient 49098-7.40 09/13 WHIT E Encounter [id number] /2022 [facility] Outpatient 00732-2.40 09/13 WHIT E Encounter [id number] /2022 [facility] Outpatient 33569-5.40 09/15 WHIT E Encounter [id number] /2022 [facility] OFFICE O/P 69779-9.40 Diagnos PETROS,S 09/19 [place] EST [id number] is: USAN V [facility] MINIMAL 59 ICD-10- CLINIC PROB CM 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
with Provide r Comment s: Abnorma l Weight Loss Outpatient 94760-6.40 10/25 WHIT E Encounter [id number] [facility] OFFICE O/P 64720-9.40 Diagnos GAGANDEEPDELMER 11/15 [place] EST LOW [id number].[id number] is: IE [place] 20-29 MIN 64 ICD-10- CLINIC CM K21.9 Gastro- esophag eal reflux disease without esophag itis
with Provide r Comment s: Gastro- Esophag eal Reflux Disease without Esophag itis Outpatient 13490-7.40 11/16 WHIT E Encounter [id number] /2021 [facility] Outpatient 53846-5.40 11/26 WHIT E Encounter [id number] /2021 [facility] Outpatient 91847-6.40 11/28 WHIT E Encounter [id number] /2021 [facility] EMERGENCY 44418-7.40 Diagnos PAVEL SÁNCHEZ 12/06 WHITE DEPT VISIT [id number] is: TER J RIVE R ICD-10- T CM VAOC J18.9 Pneumon ia, unspeci fied organis m
w ith Provide r Comment s: Pneumon ia, unspeci fied organis m Inpatient 00645-6.40 Admit NICO TODD 12/06 12/15 WHITE Encounter [id number] Reason: THER E /2021 [place] pneumon [place] ia with [facility] COVID +
EGD 31410-6.40 Admit NICO TODD 12/06 12/15 WHIT E DIAGNOSTIC [id number] Reason: THER E /2021 R IVER BRUSH WASH pneumon [place] ia with [facility] COVID +
INITIAL 93759-5.40 Diagnos DARLENE VARGHESE 12/06 12/07 [facility] [id number] is: CAROL /2021 [facility] ICD-10- [place] [facility] J15.9 Unspeci fied bacteri al pneumon ia
with Provide r Comment s: Unspeci fied Bacteri al Pneumon ia Inpatient 76466-6.40 12/06 12/06 WHITE Encounter [id number] /2021 [place] [facility] Inpatient 79319-9.40 12/07 12/07 WHITE Encounter [id number] /2021 [place] [facility] Inpatient 18019-2.40 12/07 12/07 WHITE Encounter [id number] /2021 [place] [facility] Inpatient 92813-2.40 12/07 12/07 WHITE Encounter [id number] /2021 [facility] [facility] Inpatient 15982-7.40 12/07 12/07 WHITE Encounter [id number] /2021 [place] [facility] Inpatient 85824-8.40 12/07 12/07 WHITE Encounter [id number] /2021 [place] [facility] Inpatient 52646-4.40 12/07 12/07 WHITE Encounter [id number] /2021 [place] [facility] Inpatient 39261-1.40 12/07 12/07 WHITE Encounter [id number] /2021 [facility] [facility] [facility] Inpatient 27834-3.40 12/07 12/07 WHITE Encounter [id number] /20[place] [address]-5.40 Diagnos Adrian GUZMAN 06/23 06/23 WH[facility] 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
w ith Provide r Comment s: Pneumon ia, unspeci fied organis m ORAL 59268-4.40 Diagnos HERRERA, 12/08 12/08 WH ITE FUNCTION [id number] is: ARYAN /2021 [place] THERAPY ICD-10- [place] [facility] R13.14 Dysphag ia, pharyng oesopha geal phase<b r/>with Provide r Comment s: Dysphag ia, pharyng oesopha geal phase Inpatient 15341-2.40 12/08 12/08 WHITE Encounter [id number] /20[place] [facility] Inpatient 99526-2.40 12/08 12/08 WHITE Encounter [id number] /2021 [place] [facility] Inpatient 84871-2.40 12/08 12/08 WHITE Encounter [id number] /2021 [place] [facility] Inpatient 60497-3.40 12/08 12/08 WHITE Encounter [id number] /2021 [place] [facility] Inpatient 96258-1.40 12/08 12/08 WHITE Encounter [id number] /2021 [place] [facility] ORAL 78400-5.40 Diagnos HERRERA, 12/09 01/15 ITE FUNCTION [id number] is: ARYAN /2021 [place] THERAPY ICD-10- [place] [facility] R13.12 Dysphag ia, orophar yngeal phase<b r/>with Provide r Comment s: Dysphag ia, orophar yngeal phase Inpatient 46797-9.40 12/09 12/09 WHITE Encounter [id number] /2021 [place] [facility] Inpatient 39604-9.40 12/09 12/09 WHITE Encounter [id number] /2021 [place] [facility] Inpatient 24131-0.40 12/09 12/09 WHITE Encounter [id number] /2021 [place] [facility] Inpatient 42680-9.40 12/09 12/09 WHITE Encounter [id number] /2021 [place] [facility] In[facility] 65637-6.40 12/09 12/09 WHITE Encounter [id number] /2021 [place] [facility] PT EVAL 64452-0.40 Diagnos DARYL ANAND 12/09 12/09 WHITE LOW [id number] is: AN B /2021 [place] COMPLEX 20 ICD-10- [place] MIN CM [facility] U07.1 COVID-1 9
w ith Provide r Comment s: Covid-1 9 Inpatient 22239-4.40 12/09 12/09 WHITE Encounter [id number] /2021 [place] [facility] Inpatient 30836-0.40 12/09 12/09 WHITE Encounter [id number] /2021 [place] [facility] Inpatient 27411-4.40 12/09 12/09 WHITE Encounter [id number] /2021 [facility] [facility] Inpatient 31134-7.40 12/10 12/10 WHITE Encounter [id number] /2021 [facility] [facility] Inpatient 68236-0.40 12/10 12/10 WHITE Encounter [id number] /2021 [facility] [facility] Inpatient 82827-9.40 12/10 12/10 WH[place] Encounter [id number] /2021 [facility] [facility] Inpatient 53744-0.40 12/10 12/10 WHITE Encounter [id number] /2021 [place] [facility] Inpatient 76376-8.40 12/10 12/10 WHITE Encounter [id number] /2021 [place] [facility] Inpatient 56838-8.40 12/10 12/10 WHITE Encounter [id number] /2021 [place] [facility] Inpatient 40835-6.40 12/10 12/10 WHITE Encounter [id number] /2021 [place] [facility] Inpatient 96200-9.40 12/10 12/10 WHITE Encounter [id number] /2021 [place] [facility] Inpatient 83785-9.40 12/10 12/10 WHITE Encounter [id number] /2021 [place] [facility] Inpatient 47895-9.40 12/10 12/10 WHITE Encounter [id number] /2021 [place] [facility] Inpatient 17266-2.40 12/10 12/10 WHITE Encounter [id number] /2021 [place] [facility] Inpatient 49624-9.40 12/10 12/10 WHITE Encounter [id number] /20[place] [facility] Inpatient 12271-4.40 12/10 12/10 WHITE Encounter [id number] /20[place] [facility] Inpatient 38277-1.40 12/10 12/10 WHITE Encounter [id number] /20[place] [facility] Inpatient 28849-7.40 12/10 12/10 WHITE Encounter [id number] /20[place] [facility] Inpatient 03411-3.40 12/11 12/11 WHITE Encounter [id number] /20[place] [facility] Inpatient 43746-8.40 12/11 12/11 WHITE Encounter [id number] /2021 [place] [facility] Inpatient 56650-5.40 12/11 12/11 WHITE Encounter [id number] /20[place] [facility] Inpatient 81763-3.40 12/11 12/11 WHITE Encounter [id number] /2021 [place] [facility] Inpatient 98263-9.40 12/11 12/11 WHITE Encounter [id number] /20[place] [facility] Inpatient 19423-6.40 12/11 12/11 WHITE Encounter [id number] /2021 [place] [facility] Inpatient 92955-9.40 12/11 12/11 WHITE Encounter [id number] /2021 [place] [facility] Inpatient 23026-7.40 12/11 12/11 WHITE Encounter [id number] /20[facility] [place] [facility] In[facility] 89006-6.40 12/11 12/11 WHITE Encounter [id number] /2021 [place] [facility] Inpatient 73810-7.40 12/11 12/11 WHITE Encounter [id number] /2021 [place] [facility] Inpatient 72813-9.40 12/11 12/11 WHITE Encounter [id number] /2021 [place] [facility] Inpatient 99476-7.40 12/11 12/11 WHITE Encounter [id number] /2021 [place] [facility] Inpatient 02450-2.40 12/11 12/11 WHITE Encounter [id number] /2021 [place] [facility] Inpatient 96044-5.40 12/11 12/11 WHITE Encounter [id number] /2021 [place] [facility] Inpatient 06370-6.40 12/11 12/11 WHITE Encounter [id number] /2021 [place] [facility] Inpatient 17121-9.40 12/11 12/11 WHITE Encounter [id number] /2021 [place] [facility] Inpatient 62021-7.40 12/11 12/11 WHITE Encounter [id number] /2021 [place] [facility] Inpatient 10445-4.40 12/11 12/11 WHITE Encounter [id number] /20[place] [facility] In[facility] 94166-3.40 12/11 12/11 WHITE Encounter [id number] /20[place] [facility] Inpatient 26370-8.40 12/11 12/11 WHITE Encounter [id number] /20[place] [facility] Inpatient 00449-1.40 12/12 12/12 WHITE Encounter [id number] /20[place] [facility] Inpatient 29784-3.40 12/12 12/12 WH[place] Encounter [id number] /20[place] [facility] Inpatient 76442-7.40 12/12 12/12 WHITE Encounter [id number] /20[place] [facility] Inpatient 50413-9.40 12/12 12/12 WHITE Encounter [id number] /20[place] [facility] Inpatient 66460-8.40 12/12 12/12 WHITE Encounter [id number] /20[place] [facility] Inpatient 91919-8.40 12/12 12/12 WHITE Encounter [id number] /20[place] [facility] Inpatient 45984-9.40 12/12 12/12 WHITE Encounter [id number] /2021 [place] [facility] Inpatient 17727-2.40 12/12 12/12 WHITE Encounter [id number] /2021 [place] [facility] [place] [address]-4.40 Diagnos MEGANS 12/12 12/12 WHITE PHARM EST [id number] is: UANS A /2021 [place] 15 MIN ICD-10- [place] CM [facility] J18.9 Pneumon ia, unspeci fied organis m
w ith Provide r Comment s: Pneumon ia, unspeci fied organis m Inpatient 89170-1.40 12/12 12/12 WHITE Encounter [id number] /2021 [place] [facility] [place] Inpatient 99901-9.40 12/12 12/12 WHITE Encounter [id number] /20[place] [facility] [place] Inpatient 44930-3.40 12/12 12/12 WHITE Encounter [id number] /2021 [place] [facility] [place] Inpatient 44363-0.40 12/12 12/12 WHITE Encounter [id number] /2021 [place] [facility] [place] Inpatient 87607-8.40 12/12 12/12 WHITE Encounter [id number] /2021 [place] [facility] [place] Inpatient 23445-9.40 12/12 12/12 WHITE Encounter [id number] /[place] [facility] Inpatient 86161-5.40 12/12 12/12 WHITE Encounter [id number] /[place] [facility] Inpatient 18264-0.40 12/12 12/12 WHITE Encounter [id number] /[place] [facility] Inpatient 71473-1.40 12/12 12/12 WHITE Encounter [id number] /[place] [facility] Inpatient 65909-2.40 12/12 12/12 WHITE Encounter [id number] /2021 [place] [facility] Inpatient 74891-3.40 12/12 12/12 WHITE Encounter [id number] /2021 [place] [facility] Inpatient 94972-1.40 12/12 12/12 WHITE Encounter [id number] /2021 [place] [facility] Inpatient 58178-1.40 12/12 12/12 WHITE Encounter [id number] /2021 [place] [facility] Inpatient 57465-9.40 12/12 12/12 WHITE Encounter [id number] /2021 [place] [facility] Inpatient 21164-9.40 12/13 12/13 WHITE Encounter [id number] /2021 [place] [facility] Inpatient 15454-4.40 12/13 12/13 WHITE Encounter [id number] /2021 [place] [facility] Inpatient 81018-7.40 12/13 12/13 WHITE Encounter [id number] /2021 [place] [facility] Inpatient 32331-2.40 12/13 12/13 WHITE Encounter [id number] /2021 [place] [facility] Inpatient 16598-7.40 12/13 12/13 WHITE Encounter [id number] /2021 [place] [facility] Inpatient 54921-6.40 12/13 12/13 WHITE Encounter [id number] /20[place] [facility] [place] Inpatient 51722-3.40 12/13 12/13 WHITE Encounter [id number] /2021 [place] [facility] Inpatient 19435-0.40 12/13 12/13 WHITE Encounter [id number] /2021 [place] [facility] Inpatient 98994-1.40 12/13 12/13 WHITE Encounter [id number] /[place]21 [place] [facility] GAIT 09128-1.40 Diagnos DARYL ANAND 12/13 12/13 WH ITE TRAINING [id number] is: AN B /2021 [place] THERAP[place] ICD-10- [place] CM [facility] U07.1 COVID-1 9
w ith Provide r Comment s: Covid-1 9 Inpatient 05165-6.40 12/13 12/13 WHITE Encounter [id number] /[place]21 [place] [facility] [place] Inpatient 00286-8.40 12/13 12/13 WHITE Encounter [id number] /2021 [place] [facility] [place] INPATIENT 71361-9.40 Diagnos MIKAELABOLIVAR 12/13 12/13 WHITE CONSULTATI [id number] is: A /2021 [place] ICD-10- [place] CM [facility] R13.14 Dysphag ia, pharyng oesopha geal phase<b r/>with Provide r Comment s: Dysphag ia, Pharyng oesopha geal Phase Inpatient 69867-8.40 12/13 12/13 WHITE Encounter [id number] /[address] [facility] [place] Inpatient 75023-4.40 12/13 12/13 WHITE Encounter [id number] /[place]21 [place] [facility] [place] Inpatient 20416-6.40 12/13 12/13 WHITE Encounter [id number] /2021 [place] [facility] [place] Inpatient 84752-6.40 12/14 12/14 WHITE Encounter [id number] /2021 [place] [facility] [place] Inpatient 63167-7.40 12/14 12/14 WHITE Encounter [id number] /2021 [place] [facility] [place] Inpatient 94630-4.40 12/14 12/14 WHITE Encounter [id number] /20[place] [facility] [place] Inpatient 44911-3.40 12/14 WHITE Encounter [id number] /2021 [place] [facility] [place] EGD BIOPSY 83159-1.40 Diagnos CARLOTTA CALERO 12/14 12/14 WHITE SINGLE/MUL [id number] is: THAN A /2021 TARA [place] TIPLE ICD-10- J[place] CM [facility] 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
with Provide r Comment s: Maligna nt Neop,Es ophagus ,Lower Third Inpatient 43827-1.40 12/14 12/14 WHITE Encounter [id number] /2021 [place] [facility] Inpatient 37207-1.40 12/14 12/14 WHITE Encounter [id number] /2021 [place] [facility] Inpatient 39232-7.40 12/14 12/14 WHITE Encounter [id number] /2021 [place] [facility] Inpatient 07152-8.40 12/14 12/14 WHITE Encounter [id number] /2021 [place] [facility] Inpatient 47868-2.40 12/14 12/14 WHITE Encounter [id number] /2021 [place] [facility] Inpatient 05011-2.40 12/14 12/14 WHITE Encounter [id number] /2021 [place] [facility] Inpatient 27005-1.40 12/15 12/15 WHITE Encounter [id number] /2021 [place] [facility] Inpatient 39299-1.40 12/15 12/15 WHITE Encounter [id number] /2021 [place] [facility] Inpatient 08769-9.40 12/15 12/15 WHITE Encounter [id number] /2021 [place] [facility] Inpatient 17153-2.40 12/15 12/15 WHITE Encounter [id number] /2021 [place] [facility] [place] [address]-0.40 Diagnos LAF VASQUEZ 12/15 12/17 WHITE PHARM ADDL [id number] is: ORIA /2021 [place] R 15 MIN ICD-10- CHANDU [place] [facility] Z79.899 Other salvage determiner (curren t) drug therapy
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 Outpatient 71144-4.40 12/22 WHIT E Encounter [id number] /2021 [place] [facility] Outpatient 22797-1.40 12/22 WHIT E Encounter [id number] /2021 [place] [facility] Outpatient 88211-0.40 12/22 [place] En[place] [id number] /2021 [facility] Outpatient 69645-9.40 12/23 WHIT E Encounter [id number] /2021 [place] [facility] Outpatient 09109-9.40 12/26 WHIT E Encounter [id number] /2021 [place] [facility] Outpatient 96879-7.40 01/02 WHIT E Encounter [id number] /2021 [place] [facility] Outpatient 74147-1.40 PAUL, 01/03 WHITE Encounter [id number] [place] [facility] Outpatient 35845-5.40 01/06 WHIT E Encounter [id number] /2021 [place] [facility] Outpatient 68854-6.40 Diagnos JAN- 01/10 [place] Encounter [id number] is: ANAHI [facility] ICD-10- [facility] C15.9 Maligna nt neoplas m of esophag us, unspeci fied
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 Procedure Procedure Type Code Date Perfomer Comments Sourc e EGD WITH BIOPSY EGD DIAGNOSTIC 86705 12/14/2021 MICHELLE CALERO BRUSH WASH A [place] [facility] Social History Combined list of available smoking, tobacco, and other social [facility]. Social History Response Date Comment Source Type Tobacco smoking QUIT TOBACCO USE > 12/06/2021 [place] status NHIS 7 YEARS AGO [facility] History of tobacco VA-TOBACCO FORMER 05/16/2021 [facility] use USER History of tobacco QUIT TOBACCO USE 04/01/2020 [place] use 1-7 YEARS AGO [facility] History of tobacco QUIT TOBACCO USE 03/24/2020 [place] use 1-7 YEARS AGO [facility] History of tobacco VA-TOBACCO FORMER 03/05/2020 [facility] use USER History of tobacco QUIT TOBACCO USE 02/21/2019 [place] use 1-7 YEARS AGO [facility] History of tobacco QUIT TOBACCO USE 02/20/2019 [place] use 1-7 YEARS AGO [facility] History of tobacco QUIT TOBACCO USE 02/03/2019 [place] use 1-7 YEARS AGO [facility] History of tobacco VA-TOBACCO QUIT 1 05/23/2018 [facility] use TO < 5 YRS History of tobacco QUIT TOBACCO USE 06/29/2017 quit mar 2016 [facility] use 1-7 YEARS AGO History of tobacco QUIT TOBACCO USE 11/21/2016 oct 31 1916 [facility] use 1-7 YEARS AGO History of tobacco QUIT TOBACCO USE IN 05/25/2016 [place] use PAST [place]AR [facility] History of tobacco QUIT TOBACCO USE > 05/23/2016 [place] use 7 YEARS AGO [facility] History of tobacco QUIT TOBACCO USE IN 05/19/2016 [place] use PAST YEAR [facility] History of tobacco QUIT TOBACCO USE 05/19/2016 [place] use 1-7 YEARS AGO [facility] History of tobacco QUIT TOBACCO USE IN 05/01/2016 [place] use PAST YEAR [facility] History of tobacco QUIT TOBACCO USE IN 05/01/2016 [place] use PAST YEAR [facility] History of tobacco QUIT TOBACCO USE IN 05/01/2016 [place] use PAST YEAR [facility] History of tobacco V1-PT THINKING 03/16/2016 CAREY CHEN JCGorge use ABOUT QUIT TOBACCO [facility] USE History of tobacco CURRENT SMOKER 08/12/2015 [facility] use [facility] Plan of Care List of future care activities from Department of Veterans Affairs facilities. Additional future care activities may be listed in the Assessment and Plan section. Date/Time Care Activity Care Activity Detail Facility 01/24/2022 AMBULATORY - REHAB AMBULATORY - REHAB CAREY MONTOYA [facility] MEDICINE MEDICINE
--- OUTSIDE RECORDS SUMMARY | 2022-01-19 07:48 | XMS_ITS | Encounter Summary ---
:1950 Author Organization [facility] Address [address] [place] [id number] Support Name Relationship Address Phone YUSRA AUGUSTE Unavailable [address] [place] [facility] [address] YUSRA AUGUSTE Unavailable [address] [place] [facility] [address] CLAY MOSLEY Unavailable Unavailable SJ SANTACRUZ Unavailable [...] MEDICARE MEDICARE PART Jun 18, PART A [id number] DO KALYANI PATIENT (WNR) (M) A 2016 13A 1 [place] MEDICARE MEDICARE PART Jun 18, PART B [id number] DO KALYANI PATIENT (WNR) (M) B 2016 13A 1 [place] MEDICARE MEDICARE PART Jun 18, PART A [id number] KALYANIDO PATIENT (WNR) (M) A 2017 VH81 2 [place] MEDICARE MEDICARE PART Jun 18, PART B [id number] DO KALYANI PATIENT (WNR) (M) B 2017 VH81 2 [place] UNITED MEDICARE MCR(Jun [id number] Luz AUGUSTE PATIENT HEALTHCARE ADVANTAGE NR) 2021 37 0 [facility] (WNR) Selected Encounter This section includes the information on record at [place] for the Encounter. Date/Time Encounter Type Encounter Description Reason Provider Source Feb 10, 2021 12:00 Outpatient Encounter COMMUNITY CARE AM CONSULT IHE Encounter Template Text not used by [facility] Plan of Treatment: Future Appointments (+ 6 months) and Future Tests (+/- 45 days) The Plan of Treatment section includes future care activities for the patient from all ID treatmentfacilities. This section includes future appointments and future orders which are active, pending orscheduled.Future Appointments This section includes appointments that were scheduled to occur 6 months from the date of the Encounter, up to a maximum of 20 appointments. The data comes from all ID treatment facilities. Appointment Date/Time Appointment Type Appointment Facili ty Name Feb 24, 2021 09:30 AM AMBULATORY - [place]GERY [place] [facility] Mar 11, 2021 10:00 AM AMBULATORY - SURGERY [place] [facility] May 10, 2021 08:15 AM AMBULATORY - NONE [facility] May 16, 2021 08:30 AM AMBULATORY - MEDICINE [facility] May 23, 2021 10:00 AM AMBUL[place]ORY [place]IC[place] [facility] May 23, 2021 11:30 AM AMBUL[place]ORY - MEDICINE [place] [facility] Jun 09, 2021 08:00 AM AMBULATORY - NONE [place] [facility] Jun 13, 2021 09:00 AM AMBULATORY - NONE [place] [facility] Jun 14, 2021 08:30 AM AMBUL[place]ORY - [place]GERY [place] [facility] Jul 01, 2021 08:30 AM [facility] Jul 18, 2021 09:00 AM [place]UL[place] [place]ICINE [place] [facility] Jul 18, 2021 10:30 AM AMBUL[place]ORY - MEDICINE [place] [facility] Aug 03, 2021 08:00 AM AMBULATORY - NONE [place] [facility] Social History: Smoking Status (Most current) and Tobacco Use (All prior to encounter date) This section includes the most current, and the historical, smoking and tobacco-related health factors from the VA facility where the Encounter took place.Current Smoking Status This section includes the most current smoking, or tobacco-related health factor, from the VA facility where the Encounter took place. Date/Time Current Smoking Status [facility] Apr 01, 2020 01:16 PM QUIT TOBACCO USE 1-7 YEARS AGO [place] [facility] Tobacco Use History This section includes a history of the smoking, or tobacco- related health factors, that were collected on or before the date of the Encounter. The data comes from the ID facility where the Encounter took place. Date/Time Smoking Status/Tobacco Use Comment Facil ity Mar 24, 2020 03:00 PM QUIT TOBACCO USE 1-7 YEARS AGO CAREY DOYLE [facility] Feb 21, 2019 04:11 PM QUIT TOBACCO USE 1-7 YEARS AGO [facility] Feb 20, 2019 03:38 PM QUIT TOBACCO USE 1-7 YEARS AGO [facility] Feb 03, 2019 09:50 AM QUIT TOBACCO USE 1-7 YEARS AGO [facility] May 25, 2016 11:53 PM QUIT TOBACCO USE IN PAST YEAR [facility] May 23, 2016 06:57 PM QUIT TOBACCO USE > 7 YEARS AGO [facility] May 19, 2016 03:55 PM QUIT TOBACCO USE IN PAST YEAR [facility] May 19, 2016 10:29 AM QUIT TOBACCO USE 1-7 YEARS AGO [facility] May 01, 2016 07:26 PM QUIT TOBACCO USE IN PAST YEAR [facility] May 01, 2016 03:11 PM QUIT TOBACCO USE IN PAST YEAR [facility] May 01, 2016 11:19 AM QUIT TOBACCO USE IN PAST YEAR [facility] Mar 16, 2016 12:50 PM V1-PT DECLINES REF TO TOBACCO HUME VIVEK [facility] CESS PRGM Mar 16, 2016 12:50 PM V1-PT THINKING ABOUT QUIT [facility] TOBACCO USE Aug 12, 2015 08:48 AM CURRENT SMOKER CAREY Yates [facility] Encounter Notes: All associated encounter notes This section contains the clinical notes associated to the Encounter. Date/Time Encounter Note(s) Provider Source Feb 10, 2021 12:00 AM NONVA CONSULT: ESTHELA JUAN DAYDAY Yates [facility] LOCAL TITLE: COMMUNITY CARE CONSULT RESULT NOTE STANDARD TITLE: NONVA CONSULT DATE OF NOTE: FEB 10, 2021 ENTRY DATE: FEB 11 021@07:58:07 AUTHOR: ESTHELA JUAN EXP COSIGNER: URGENCY: STATUS: COMPLETED VistA Imaging - Scanned Document COMMUNITY CARE -DERMATOLOGY DATES OF SERVICE: 02/10/21 MOHS/ BASAL CELL CARCINOMA LOCATION OF SERVICE: [facility] /emely/ ESTHELA JUAN Signed: 02/11/2021 07:58
--- OUTSIDE RECORDS SUMMARY | 2022-01-19 07:49 | XMS_ITS | Encounter Summary ---
:1950 Author Organization [facility] Address [address] [place] [address] Support Name Relationship Address Phone YUSRA AUGUSTE Unavailable [address] [place] [address] YUSRA AUGUSTE Unavailable [address] [place] [address] CLAY MOSLEY Unavailable Unavailable SJ SANTACRUZ Unavailable [...] MEDICARE MEDICARE PART Jun 18, PART A [id number] DO KALYANI PATIENT (WNR) (M) A 2016 13A 1 [place] MEDICARE MEDICARE PART Jun 18, PART B [id number] DO KALYANI PATIENT (WNR) (M) B 2016 13A 1 [place] MEDICARE MEDICARE PART Jun 18, PART A [id number] DO KALYANI PATIENT (WNR) (M) A 2017 VH81 2 [place] MEDICARE MEDICARE PART Jun 18, PART B [id number] DO KALYANI PATIENT (WNR) (M) B 2017 VH81 2 [place] UNITED MEDICARE MCR(W Jun [id number] Luz AUGUSTE PATIENT HEALTHCARE ADVANTAGE NR) 2021 37 0 [facility] (WNR) Selected Encounter This section includes the information on record at [place] for the Encounter. Date/Time Encounter Type Encounter Description Reason Provider Source IHE Encounter Template Text not used by VA
--- OUTSIDE RECORDS SUMMARY | 2022-01-19 07:52 | XMS_ITS | Encounter Summary ---
:1950 Author Organization Department [facility] Address [address] [place] [id number] Support Name Relationship Address Phone YUSRA AUGUSTE Unavailable [address] [place] [facility] [place] [address] YUSRA AUGUSTE Unavailable [address] [place] [facility] [place] [address] CLAY MOSLEY Unavailable Unavailable SJ SANTACRUZ Unavailable [...] MEDICARE MEDICARE PART Jun 18, PART A [id number] DO KALYANI PATIENT (WNR) (M) A 2016 13A 1 UGLAS MEDICARE MEDICARE PART Jun 18, PART B [id number] AUGUSTE DO PATIENT (WNR) (M) B 2017 13A 1 [place]AS MEDICARE MEDICARE PART Jun 18, PART B [id number] KALYANIDO PATIENT (WNR) (M) B 2017 VH81 2 UGLAS MEDICARE MEDICARE PART Jun 18, PART A [id number] KALYANIDO PATIENT (WNR) (M) A 2017 VH81 2 LAS UNITED MEDICARE MCR(W Jun 18 [id number] Luz AUGUSTE PATIENT HEALTHCARE ADVANTAGE NR) 2021 37 0 [facility] (WNR) Selected Encounter This section includes the information on record at [place] for the Encounter. Date/Time Encounter Type Encounter Description Reason Provider Source Jun 09, 2021 08:00 Outpatient Encounter PRIMARY CARE/MEDICINE AM IHE Encounter Template Text not used by CO Plan of Treatment: Future Appointments (+ 6 months) and Future Tests (+/- 45 days) The Plan of Treatment section includes future care activities for the patient from all [facility] This section includes future appointments and future orders which are active, pending orscheduled.Future Appointments This section includes appointments that were scheduled to occur 6 months from the date of the Encounter, up to a maximum of 20 appointments. The data comes from all [place] treatment facilities. Appointment Date/Time Appointment Type Appointment Facili ty Name Jun 13, 2021 09:00 AM [place] [facility] Jun 14, 2021 08:30 AM [place] [facility] Jul 01, 2021 08:30 [facility] Jul 18, 2021 09:00 AM [place] [place] [facility] Jul 18, 2021 10:30 AM [place] [facility] Aug 03, 2021 08:00 AM [facility] - NONE [place] [facility] Sep 05, 2021 08:00 AM [place] [facility] Sep 19, 2021 08:00 [facility] October 18, 2021 02:00 PM [facility] November 15, 2021 10:00 AM [facility] Dec 01, 2021 10:30 AM [facility] [place]ONE [place] [facility] Dec 06, 2021 11:40 AM [facility] Lab Results: +/- 30 days of the encounter This section includes the Chemistry and Hematology Lab Results on record with CO for the patient. Radiology Reports and Pathology Reports are provided separately, in subsequent sections.Lab Results This section contains the Chemistry/Hematology Results that were resulted 30 days before or 30 daysafter the date of the Encounter. Date/Time Source Result Type Result - Unit Interpretation Reference Range Comment Jul 01, 2021 08:17 [facility] LIPOPROTEIN CHOLESTEROL S pecimen Type: PLASMA AM FRACT. PANEL Comment: Tests performed on [employer] (405) SN:[id number] Ordering Provid er: ISHMAEL CATES Report Released Date/Time: May 30, 2021 09:07 AM Reporting Lab: [facility] [address] [facility] [address] Performing Lab: [facility] [address] [facility] [address] CHOLESTEROL 187 0-199 TRIGLYCERIDE 153 H 0-149 HDL CHOLESTEROL 44 >40 LDL CHOLESTEROL (CALC) 112 0-129 May 16, 2021 09:44 [facility] CB THYROID TESTING Specimen Type: SERUM AM CASCADE Comment: Tests performed on [employer] (405) SN:[id number] TSH within normal limits. Reflex testing not required. Ordering Provid er: ISHMAEL CATES Report Released Date/Time: May 16, 2021 09:42 AM Reporting Lab: [facility] [address] [facility] [address] Performing Lab: [facility] [address] [facility] [address] TSH 1.08 0.35-5.00 REFLEX TESTING comment May 16, 2021 09:43 [facility] LIPOPROTEIN CHOLESTEROL S pecimen Type: PLASMA AM FRACT. PANEL Comment: Tests performed on [employer] (405) SN:[id number] Ordering Provid er: ISHMAEL CATES Report Released Date/Time: May 16, 2021 09:42 AM Reporting Lab: [facility] [place] [facility] [address] [facility] [address] Performing Lab: [facility] [address] [facility] [address] CHOLESTEROL 208 H 0-199 TRIGLYCERIDE 176 H 0-149 HDL CHOLESTEROL 43 >40 LDL CHOLESTEROL (CALC) 130 H 0-129 May 16, 2021 [facility] GLYCOHEMOGLOBIN (A1C ONLY) S pecimen Type: BLOOD 09:43 AM Comment: Tests performed on [employer] (405) SN:[id number] Ordering Provid er: ISHMAEL CATES Report Released Date/Time: May 16, 2021 09:42 AM Reporting Lab: [facility] [place] [facility] [address] [facility] [address] Performing Lab: [facility] [address] [facility] [address] HEMOGLOBIN A1C 5.8 H 4.0-5.6 May 16, 2021 09:43 AM [facility] CB LIVER PROFILE Specim en Type: PLASMA Comment: Tests performed on [employer] (405) SN:[id number] Ordering Provid er: ISHMAEL CATES Report Released Date/Time: May 16, 2021 09:42 AM Reporting Lab: [facility] [address] [facility] [address] Performing Lab: [facility] [address] [facility] [address] PROTEIN, TOTAL 8.0 6.0-8.5 ALBUMIN 3.9 3.2-5.0 BILIRUBIN, TOTAL 0.6 0.2-1.2 ALKALINE PHOSPHATASE 102 40-150 ALT(SGPT) 18 7-52 AST(SGOT) 15 5-34 May 16, 2021 [facility] P4 GLU,BUN,CREAT,LYTES,CA Sp ecimen Type: PLASMA 09:43 AM Comment: Tests performed on [employer] (405) SN:[id number] Ordering Provid er: ISHMAEL CATES Report Released Date/Time: May 16, 2021 09:42 AM Reporting Lab: [facility] [address] [facility] [address] Performing Lab: [facility] [address] [facility] [address] UREA NITROGEN 18 7-25 SODIUM 134 L 135-145 POTASSIUM 4.9 3.5-5.0 CHLORIDE 99 L 100-110 CARBON DIOXIDE 21 20-30 ANION GAP 14 4-16 GLUCOSE 108 H 65-100 CREATININE 1.35 0.5-1.5 CALCIUM 9.6 8.5-10.5 eGFR 52 L >60 May 16, 2021 09:43 AM [facility] CBC PROFILE Specim en Type: BLOOD No comment enter ed. Ordering Provid er: ISHMAEL CATES Report Released Date/Time: May 16, 2021 09:42 AM Reporting Lab: [facility] [address] [facility] [address] Performing Lab: [facility] [address] [facility] [address] WBC 10.3 4.5-11.0 RBC 5.64 4.23-5.66 HGB [...] smoking and tobacco-related health factors from the [place] facility where the Encounter took place.Current Smoking Status This section includes the most current smoking, or tobacco-related health factor, from the [place] facility where the Encounter took place. Date/Time Current Smoking Status Comment Facility Apr 01, 2020 01:16 PM QUIT TOBACCO USE 1-7 YEARS AGO [facility] Tobacco Use History This section includes a history of the smoking, or tobacco- related health factors, that were collected on or before the date of the Encounter. The data comes from the [place] facility where the Encounter took place. Date/Time Smoking Status/Tobacco Use Comment [facility] Mar 24, 2020 03:00 PM QUIT TOBACCO USE 1-7 YEARS AGO [facility] Feb 21, 2019 04:11 PM QUIT TOBACCO USE 1-7 YEARS AGO [facility] Feb 20, 2019 03:38 PM QUIT TOBACCO USE 1-7 YEARS AGO [facility] Feb 03, 2019 09:50 AM QUIT TOBACCO USE 1-7 YEARS AGO [facility] May 25, 2016 11:53 PM QUIT TOBACCO USE IN PAST YEAR [facility] DOYLE [facility] May 23, 2016 06:57 PM QUIT TOBACCO USE > 7 YEARS AGO [facility] DO[facility] May 19, 2016 03:55 PM QUIT TOBACCO USE IN PAST YEAR [facility] DOYLE [facility] May 19, 2016 10:29 AM QUIT TOBACCO USE 1-7 YEARS AGO [facility] [place] [facility] May 01, 2016 07:26 PM QUIT TOBACCO USE IN PAST YEAR [facility] DOYLE [facility] May 01, 2016 03:11 PM QUIT TOBACCO USE IN PAST YEAR [facility] DOYLE [facility] May 01, 2016 11:19 AM QUIT TOBACCO USE IN PAST YEAR [facility] DO[facility] Mar 16, 2016 12:50 PM V1-PT DECLINES REF TO TOBACCO [facility] DO[facility] CESS PRGM Mar 16, 2016 12:50 PM V1-PT THINKING ABOUT QUIT [facility] DO[facility] TOBACCO USE Aug 12, 2015 08:48 AM CURRENT SMOKER [facility] Yates [facility] Encounter Notes: All associated encounter notes This section contains the clinical notes associated to the Encounter. Date/Time Encounter Note(s) Provider Source Jun 09, 2021 08:00 AM NONVA NOTE: SILVANA VÁZQUEZ [facility] LOCAL TITLE: NonVA Medical Records STANDARD TITLE: NONVA NOTE DATE OF NOTE: JUN 09, 2021@08:00 ENTRY DATE: JUN 14, 2021@12:58:49 AUTHOR: SILVANA VÁZQUEZ EXP COSIGNER: URGENCY: STATUS: COMPLETED Date of Service: 06/09/2021 08:00 Place: [facility] Treating Provider: Fabian Cameron MD Event/Procedure: HPI Stage Miguel adenocarcinoma of right lung 06/03 Not a surgical candidate EGFR/ALK negative PDL 1+ at 90% Definitive RT with carbo docetaxel 07/12-08/21 achi eved a [place] radiographically Durvalumab times 1 year completed 09/04/18 as adj u[address] therapy CT scan 11/19/18 stable with [place] 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 We have not seen him in the medical oncology clinic for over a year now. He was rereferred by his primary care doctor. Generally he is doing well. No evidence of recur rence. He is overdue for a CT scan of his chest. He still has his port in but it is not being used. Assessment snd Plan 70-year-old man who presented with a stage Miguel adenocarcinoma of the right lung. He was not a surgical candidate. He receiv ed definitive radiation with concurrent chemotherapy completing that in August 2017. He achieved a partial remission by radiographic CT scan. Subsequently he was initiated on every 2 week im munotherapy with Durvalumab. He completed 1 year of that in 08/31. At this point he shows no evidence of recurrence of his cancer. I see no significant residual toxicity of treatment. We will continue to follow him. He is du e for a CAT scan now. We will go ahead and arrange that for him and let him know the results. We will plan t o see him back in 6 months for another CAT scan. He needs to contin ue these until he is 5 years out from his diagnosis. We will make a referral to surgery in [facility] for him for his port removal. Document sent to [facility] to be scanned. To view this document open the [employer] tools menu and then open the image display viewer. /emely/ SILVANA VÁZQUEZ [employer] Supervisor Signed: 06/14/2021 13:05
--- OUTSIDE RECORDS SUMMARY | 2022-01-19 07:52 | XMS_ITS | Encounter Summary ---
:[address] [facility] Address [address] [place] [id number] Support Name Relationship Address Phone YUSRA AUGUSTE Unavailable [address] [place] [address] YUSRA AUGUSTE Unavailable [address] [place] [address] CLAY MOSLEY Unavailable Unavailable SJ SANTACRUZ Unavailable [...] MEDICARE MEDICARE PART Jun 18, PART A [id number] DO KALYANI PATIENT (WNR) (M) A 2016 13A 1 [place] MEDICARE MEDICARE PART Jun 18, PART B [id number] DO KALYANI PATIENT (WNR) (M) B 2016 13A 1 [place] MEDICARE MEDICARE PART Jun 18, PART A [id number] KALYANIDO PATIENT (WNR) (M) A 2017 VH81 2 [place] MEDICARE MEDICARE PART Jun 18, PART B [id number] DO KALYANI PATIENT (WNR) (M) B 2017 VH81 2 U[place]AS UNITED MEDICARE MCR(Jun 18 [id number] Luz AUGUSTE PATIENT HEALTHCARE ADVANTAGE NR) 2021 37 0 [facility] (WNR) Selected Encounter This section includes the information on record at [place] for the Encounter. Date/Time Encounter Type Encounter Description Reason Provider Source Jun 09, 2021 01:40 Outpatient Encounter COMMUNITY CARE PM CONSULT IHE Encounter Template Text not used by [place] Plan of Treatment: Future Appointments (+ 6 months) and Future Tests (+/- 45 days) The Plan of Treatment section includes future care activities for the patient from all [place] treatmentfacilities. This section includes future appointments and future orders which are active, pending orscheduled.Future Appointments This section includes appointments that were scheduled to occur 6 months from the date of the Encounter, up to a maximum of 20 appointments. The data comes from all [place] treatment facilities. Appointment Date/Time Appointment Type Appointment Facili ty Name Jun 13, 2021 09:00 AM [place] [facility] Jun 14, 2021 08:30 AM [place] [facility] Jul 01, 2021 08:30 AM [facility] Jul 18, 2021 09:00 AM [place] [facility] Jul 18, 2021 10:30 AM [place]ORY [place]IC[place] [facility] Aug 03, 2021 08:00 AM [place]ORY [place] [facility] Sep 05, 2021 08:00 AM [place] [facility] Sep 19, 2021 08:00 AM [facility] October 18, 2021 02:00 PM [facility] November 15, 2021 10:00 AM [facility] Dec 01, 2021 10:30 AM [place] [facility] Dec 06, 2021 11:40 AM [place] [facility] Lab Results: +/- 30 days of the encounter This section includes the Chemistry and Hematology Lab Results on record with [place] for the patient. Radiology Reports and Pathology Reports are provided separately, in subsequent sections.Lab Results This section contains the Chemistry/Hematology Results that were resulted 30 days before or 30 daysafter the date of the Encounter. Date/Time Source Result Type Result - Unit Interpretation Reference Range Comment Jul 01, 2021 08:17 [facility] LIPOPROTEIN CHOLESTEROL S pecimen Type: PLASMA AM FRACT. PANEL Comment: Tests performed on [employer] (405) SN:[id number] Ordering Provid er: ISHMAEL CATES Report Released Date/Time: May 30, 2021 09:07 AM Reporting Lab: [facility] [address] [facility] [address] Performing Lab: [facility] [address] [facility] [address] CHOLESTEROL 187 0-199 TRIGLYCERIDE 153 H 0-149 HDL CHOLESTEROL 44 >40 LDL CHOLESTEROL (CALC) 112 0-129 May 16, 2021 09:44 [facility] THYROID TESTING Specimen Type: SERUM AM CASCADE Comment: Tests performed on [employer] (405) SN:[id number] TSH within normal limits. Reflex testing not required. Ordering Provid er: ISHMAEL CATES Report Released Date/Time: May 16, 2021 09:42 AM Reporting Lab: [facility] [address] [facility] [address] Performing Lab[facility] [address] [facility] [address] TSH 1.08 0.35-5.00 REFLEX TESTING comment May 16, 2021 [facility] GLYCOHEMOGLOBIN (A1C ONLY) S pecimen Type: BLOOD 09:43 AM Comment: Tests performed on [employer] (405) SN:[id number] Ordering Provid er: ISHMAEL CATES Report Released Date/Time: May 16, 2021 09:42 AM Reporting Lab: [facility] [address] [facility] [address] Performing Lab: [facility] [address] [facility] [address] HEMOGLOBIN A1C 5.8 H 4.0-5.6 May 16, 2021 09:[address] [facility] LIVER PROFILE Specim en Type: PLASMA Comment: Tests performed on [employer] (405) SN:[id number] Ordering Provid er: ISHMAEL CATES Report Released Date/Time: May 16, 2021 09:42 AM Reporting Lab: [facility] [address] [facility] [address] Performing Lab: [facility] [address] [facility] [address] PROTEIN, TOTAL 8.0 6.0-8.5 ALBUMIN 3.9 3.2-5.0 BILIRUBIN, TOTAL 0.6 0.2-1.2 ALKALINE PHOSPHATASE 102 40-150 ALT(SGPT) 18 7-52 AST(SGOT) 15 5-34 May 16, 2021 [facility] P4 GLU,BUN,CREAT,LYTES,CA Sp ecimen Type: PLASMA 09:43 AM Comment: Tests performed on [employer] (405) SN:[id number] Ordering Provid er: ISHMAEL CATES Report Released Date/Time: May 16, 2021 09:42 AM Reporting [facility]: [facility] [address] [facility] [address] Performing Lab: [facility] [address] [facility] [address] UREA NITROGEN 18 7-25 SODIUM 134 L 135-145 POTASSIUM 4.9 3.5-5.0 CHLORIDE 99 L 100-110 CARBON DIOXIDE 21 20-30 ANION GAP 14 4-16 GLUCOSE 108 H 65-100 CREATININE 1.35 0.5-1.5 CALCIUM 9.6 8.5-10.5 eGFR 52 L >60 May 16, 2021 09:43 [facility] LIPOPROTEIN CHOLESTEROL S pecimen Type: PLASMA AM FRACT. PANEL Comment: Tests performed on [employer] (405) SN:[id number] Ordering Provid er: ISHMAEL CATES Report Released Date/Time: May 16, 2021 09:42 AM Reporting Lab: [facility] [address] [facility] [address] Performing Lab: [facility] [address] [facility] [address] CHOLESTEROL 208 H 0-199 TRIGLYCERIDE 176 H 0-149 HDL CHOLESTEROL 43 >40 LDL CHOLESTEROL (CALC) 130 H 0-129 May 16, 2021 09:43 AM [facility] CBC PROFILE Specim en Type: BLOOD No comment enter ed. Ordering Provid er: ISHMAEL CATES Report Released Date/Time: May 16, 2021 09:42 AM Reporting Lab: [facility] [address] [facility] [address] Performing Lab: [facility] [address] [facility] [address] WBC 10.3 4.5-11.0 RBC 5.64 4.23-5.66 HGB [...] smoking and tobacco-related health factors from the [place] facility where the Encounter took place.Current Smoking Status This section includes the most current smoking, or tobacco-related health factor, from the [place] facility where the Encounter took place. Date/Time Current Smoking Status Comment Facility Apr 01, 2020 01:16 PM QUIT TOBACCO USE 1-7 YEARS AGO [facility] Tobacco Use History This section includes a history of the smoking, or tobacco- related health factors, that were collected on or before the date of the Encounter. The data comes from the [place] facility where the Encounter took place. Date/Time Smoking Status/Tobacco Use Comment [facility] Mar 24, 2020 03:00 PM QUIT TOBACCO USE 1-7 YEARS AGO [facility] Feb 21, 2019 04:11 PM QUIT TOBACCO USE 1-7 YEARS AGO [facility] Feb 20, 2019 03:38 PM QUIT TOBACCO USE 1-7 YEARS AGO [facility] Feb 03, 2019 09:50 AM QUIT TOBACCO USE 1-7 YEARS AGO [facility] May 25, 2016 11:53 PM QUIT TOBACCO USE IN PAST YEAR [facility] May 23, 2016 06:57 PM QUIT TOBACCO USE > 7 YEARS AGO [facility] May 19, 2016 03:55 PM QUIT TOBACCO USE IN PAST YEAR [facility] May 19, 2016 10:29 AM QUIT TOBACCO USE 1-7 YEARS AGO [facility] May 01, 2016 07:26 PM QUIT TOBACCO USE IN PAST YEAR [facility] DUFF[facility] May 01, 2016 03:11 PM QUIT TOBACCO USE IN PAST YEAR [facility] DUFFT [facility] May 01, 2016 11:19 AM QUIT TOBACCO USE IN PAST YEAR [facility] DOYLE T [facility] Mar 16, 2016 12:50 PM V1-PT DECLINES REF TO TOBACCO [facility] MONTOYA [facility] CESS PR[facility] Mar 16, 2016 12:50 PM V1-PT THINKING ABOUT QUIT [facility] DOYLE [facility] TOBACCO USE Aug 12, 2015 08:48 AM CURRENT SMOKER CAREY Yates [facility] Encounter Notes: All associated encounter notes This section contains the clinical notes associated to the Encounter. Date/Time Encounter Note(s) Provider Source Jun 09, 2021 01:40 PM NONVA CONSULT: JUDITH PALACIOS LOCAL TITLE: COMMUNITY CARE CONSULT RESULT NOTE [facility] STANDARD TITLE: NONVA CONSULT DATE OF NOTE: JUN 09, 2021@13:40 ENTRY DATE: JUN 22, 2021@13:41:09 AUTHOR: JUDITH PALACIOS COSIGNER: URGENCY: STATUS: COMPLETED VistA Imaging - Scanned Document COMMUNITY CARE-HEMATOLOGY/ONCOLOGY 06/09/2021 FOLLOW-UP FOR STAGE IIIA [place] [facility] [place]iba /emely/ Judith Palacios MRT Signed: 06/22/2021 13:42
--- OUTSIDE RECORDS SUMMARY | 2022-01-19 07:52 | XMS_ITS | Encounter Summary ---
:1950 Author Organization Department [facility] Address [address] [place] [id number] Support Name Relationship Address Phone YUSRA AUGUSTE Unavailable [address] [place] [facility] [place] [address] YUSRA AUGUSTE Unavailable [address] [place] [facility] [place] [address] CLAY MOSLEY Unavailable Unavailable SJ SANTACRUZ Unavailable [...] MEDICARE MEDICARE PART Jun 18, PART A [id number] DO KALYANI PATIENT (WNR) (M) A 2016 13A 1 UGLAS MEDICARE MEDICARE PART Jun 18, PART B [id number] DO KALYANI PATIENT (WNR) (M) B 2016 13A 1 [place]AS MEDICARE MEDICARE PART Jun 18, PART A [id number] KALYANIDO PATIENT (WNR) (M) A 2017 VH81 2 U[place]AS MEDICARE MEDICARE PART Jun 18, PART B [id number] DO KALYANI PATIENT (WNR) (M) B 2017 VH81 2 LAS UNITED MEDICARE MCR(Jun 18 [id number] Luz AUGUSTE PATIENT HEALTHCARE ADVANTAGE NR) 2021 37 0 [facility] (WNR) Selected Encounter This section includes the information on record at [place] for the Encounter. Date/Time Encounter Type Encounter Description Reason Provider Source Jun 13, 2021 09:30 Outpatient Encounter PRIMARY CARE/MEDICINE AM IHE Encounter Template Text not used by [place] Plan of Treatment: Future Appointments (+ 6 months) and Future Tests (+/- 45 days) The Plan of Treatment section includes future care activities for the patient from all [place] [facility]. This section includes future appointments and future orders which are active, pending orscheduled.Future Appointments This section includes appointments that were scheduled to occur 6 months from the date of the Encounter, up to a maximum of 20 appointments. The data comes from all [place] treatment facilities. Appointment Date/Time Appointment Type Appointment Facili ty Name Jun 14, 2021 08:30 AM AMBULATORY [place] [facility] Jul 01, 2021 08:30 AM AM[facility] - [facility]ICINE [facility] Jul 18, 2021 09:00 AM [place] [facility] Jul 18, 2021 10:30 AM [place]UL[place]ORY [place]ICINE [place] [facility] Aug 03, 2021 08:00 AM AMBULATORY - NONE [place] [facility] Sep 05, 2021 08:00 AM AMBUL[facility]ORY - [place]GERY [place] [facility] Sep 19, 2021 08:00 AM [facility] October 18, 2021 02:00 PM AMBUL[facility]ORY - MEDICINE [facility] November 15, 2021 10:00 AM AM[facility] - MEDICINE [facility] Dec 01, 2021 10:30 AM AMBULATORY - NONE [place] [facility] Dec 06, 2021 11:40 AM [place] [facility] Lab Results: +/- 30 days of the encounter This section includes the Chemistry and Hematology Lab Results on record with [place] for the patient. Radiology Reports and Pathology Reports are provided separately, in subsequent sections.Lab Results This section contains the Chemistry/Hematology Results that were resulted 30 days before or 30 daysafter the date of the Encounter. Date/Time Source Result Type Result - Unit Interpretation Reference Range Comment Jul 01, 2021 08:17 [facility] LIPOPROTEIN CHOLESTEROL S pecimen Type: PLASMA AM FRACT. 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 Reflex testing not required. Ordering Provid er: ISHMAEL CATES Report Released Date/Time: May 16, 2021 09:42 AM Reporting Lab: [facility] [address] [facility] [address] Performing Lab: [facility] [address] [facility] [address] TSH 1.08 0.35-5.00 REFLEX TESTING comment May 16, 2021 [facility] GLYCOHEMOGLOBIN (A1C ONLY) S pecimen Type: BLOOD 09:43 AM Comment: Tests performed on [employer] Professional Engineer (405) SN:[id number] Ordering Provid er: ISHMAEL CATES Report Released Date/Time: May 16, 2021 09:42 AM Reporting Lab: [facility] [address] [facility] [address] Performing Lab: [facility] [address] [facility] [address] HEMOGLOBIN A1C 5.8 H 4.0-5.6 May 16, 2021 09:43 [facility] LIPOPROTEIN CHOLESTEROL S pecimen Type: PLASMA AM FRACT. PANEL Comment: Tests performed on [employer] Professional Engineer (405) SN:[id number] Ordering Provid er: ISHMAEL CATES Report Released Date/Time: May 16, 2021 09:42 AM Reporting Lab: [facility] [address] [facility] [address] Performing Lab: [facility] [address] [facility] [address] CHOLESTEROL 208 H 0-199 TRIGLYCERIDE 176 H 0-149 HDL CHOLESTEROL 43 >40 LDL CHOLESTEROL (CALC) 130 H 0-129 May 16, 2021 09:43 AM [facility] LIVER PROFILE Specim en Type: PLASMA Comment: Tests performed on DGTS (405) SN:[id number] Ordering Provid er: ISHMAEL CATES Report Released Date/Time: May 16, 2021 09:42 AM Reporting Lab: [facility] [address] [facility] [address] Performing Lab: [facility] [address] [facility] [address] PROTEIN, TOTAL 8.0 6.0-8.5 ALBUMIN 3.9 3.2-5.0 BILIRUBIN, TOTAL 0.6 0.2-1.2 ALKALINE PHOSPHATASE 102 40-150 ALT(SGPT) 18 7-52 AST(SGOT) 15 5-34 May 16, 2021 [facility] P4 GLU,BUN,CREAT,LYTES,CA Sp ecimen Type: PLASMA 09:43 AM Comment: Tests performed on DGTS (405) SN:[id number] Ordering Provid er: ISHMAEL CATES Report Released Date/Time: May 16, 2021 09:42 AM Reporting Lab: [facility] [address] [facility] [address] Performing Lab: [facility] [address] [facility] [address] UREA NITROGEN 18 7-25 SODIUM 134 L 135-145 POTASSIUM 4.9 3.5-5.0 CHLORIDE 99 L 100-110 CARBON DIOXIDE 21 20-30 ANION GAP 14 4-16 GLUCOSE 108 H 65-100 CREATININE 1.35 0.5-1.5 CALCIUM 9.6 8.5-10.5 eGFR 52 L >60 May 16, 2021 09:43 AM [facility] CBC PROFILE Specim en Type: BLOOD No comment enter ed. Ordering Provid er: ISHMAEL CATES Report Released Date/Time: May 16, 2021 09:42 AM Reporting Lab: [facility] [address] [facility] [address] Performing Lab: [facility] [address] [facility] [address] WBC 10.3 4.5-11.0 RBC 5.64 4.23-5.66 HGB [...] smoking and tobacco-related health factors from the [place] facility where the Encounter took place.Current Smoking Status This section includes the most current smoking, or tobacco-related health factor, from the [place] facility where the Encounter took place. Date/Time Current Smoking Status Comment Facility Apr 01, 2020 01:16 PM QUIT TOBACCO USE 1-7 YEARS AGO [facility] Tobacco Use History This section includes a history of the smoking, or tobacco- related health factors, that were collected on or before the date of the Encounter. The data comes from the [place] facility where the Encounter took place. Date/Time Smoking Status/Tobacco Use Comment [facility] Mar 24, 2020 03:00 PM QUIT TOBACCO USE 1-7 YEARS AGO [facility] Feb 21, 2019 04:11 PM QUIT TOBACCO USE 1-7 YEARS AGO [facility] Feb 20, 2019 03:38 PM QUIT TOBACCO USE 1-7 YEARS AGO [facility] Feb 03, 2019 09:50 AM QUIT TOBACCO USE 1-7 YEARS AGO [facility] May 25, 2016 11:53 PM QUIT TOBACCO USE IN PAST YEAR [facility] DOYLE [facility] May 23, 2016 06:57 PM QUIT TOBACCO USE > 7 YEARS AGO [facility] May 19, 2016 03:55 PM QUIT TOBACCO USE IN PAST YEAR [facility] May 19, 2016 10:29 AM QUIT TOBACCO USE 1-7 YEARS AGO [facility] DOYLE [facility] May 01, 2016 07:26 PM QUIT TOBACCO USE IN PAST YEAR [facility] May 01, 2016 03:11 PM QUIT TOBACCO USE IN PAST YEAR [facility] May 01, 2016 11:19 AM QUIT TOBACCO USE IN PAST YEAR [facility] Mar 16, 2016 12:50 PM V1-PT DECLINES REF TO TOBACCO [facility] CESS PR[facility] Mar 16, 2016 12:50 PM V1-PT THINKING ABOUT QUIT [facility] TOBACCO USE Aug 12, 2015 08:48 AM CURRENT SMOKER CAREY Yates [facility] Encounter Notes: All associated encounter notes This section contains the clinical notes associated to the Encounter. Date/Time Encounter Note(s) Provider Source Jun 13, 2021 09:30 AM NONVA NOTE: SILVANA VÁZQUEZ [facility] LOCAL TITLE: NonVA Medical Records STANDARD TITLE: NONVA NOTE DATE OF NOTE: JUN 13, 2021@09:30 ENTRY DATE: JUN 15, 2021@08:54:22 AUTHOR: SILVANA VÁZQUEZ EXP COSIGNER: URGENCY: STATUS: COMPLETED Date of Service: 06/13/2021 9:30 Place: [facility] Treating Provider: Hawa Louie NP Event/Procedure: Assessment and Plan (1) Type 2 diabetes mellitus with other diabetic neurological complication: E11.49 - Type 2 diabetes ismael litus with other diabetic neurological complication Pt's feet were examined today. Diabetic footcare was discussed with pt. in detail and questions were an swered. Pt advised on proper footwear and protection and to inspect feet daily. Pt also advised to no t attempt self-tx in event of injury, infection, etc. and to call with any que stions or concerns. R6asymon at 6.0 and managedwith oral Metformin. Patient hassignificant lossof protective sensation and should avoid go ing barefoot. Due to his preulcerative callus and kingsley ertoes recommend diabetic shoesw ith offloading?awaiting shoesfrom [employer]. Recommend discussed neuropathy management with medicationssuch as [facility]abap[facility]- He hasapptwith provider in February (2) Onychomycosis: 835.1 - Tinea unguium N ai Is were significantly t hickened and elongated. They were debrided 1 through 5 bilaterally. follow up 3 months or sooner as needed (3) Pre-ulcerative corn or callous: L84 - Corns and callosities Preulcerative callus without subdermal bleeding noted on theright third hammertoe. This was thoroughly debrided with a sterile 15 blade today. Discussed the imp ortance of off loading this area, dailyfoot check and follow-up for any acute changes. Given more cr est toe pads and encouraged to wear at all timeswhen ambulating and avoid walking without shoes or slippers. Discussed importanceo f routinefoot careto prevent complications such as ulcera tions and lossoftoeor limb. follow up 4wksor sooner as needed (4) Kingsley ertoes of both feet: M20.41 - Other hammer toe(s) (acquired), right foot; M20.42 - Other hammer toe (s) (acquired), left foot Significant rigid contractures of toes (5) Hallux nam itus: Laterality: left Qualified Code(s): M20.5X2 - Ot her deformities of toe(s) (acquired), left foot M20.5X9 - Other deformities of toe(s) (acquired) , unspecified foot Left great toe (6) 1 m paired gait and mobility: R26.89 - Other abnormalities of gait and mobilit y Ambulates with acane Document sent to [facility] to be scanned. To view this document open the CPRS tools menu and then open the image display viewer. /emely/ SILVANA VÁZQUEZ Slot Floorperson Signed: 06/15/2021 09:03
--- OUTSIDE RECORDS SUMMARY | 2022-01-19 07:52 | XMS_ITS | Encounter Summary ---
:1950 Author Organization [facility] Address [address] [place] [address] Support Name Relationship Address Phone YUSRA AUGUSTE Unavailable [address] [place] [facility] [place] [address] YUSRA AUGUSTE Unavailable [address] [place] [facility] [place] [address] CLAY MOSLEY Unavailable Unavailable SJ SANTACRUZ Unavailable [...] MEDICARE MEDICARE PART Jun 18, PART A [id number] DO KALYANI PATIENT (WNR) (M) A 2016 13A 1 [place] MEDICARE MEDICARE PART Jun 18, PART B [id number] DO KALYANI PATIENT (WNR) (M) B 2017 13A 1 [place] MEDICARE MEDICARE PART Jun 18, PART B [id number] KALYANIDO PATIENT (WNR) (M) B 2017 VH81 2 [place] MEDICARE MEDICARE PART Jun 18, PART A [id number] DO KALYANI PATIENT (WNR) (M) A 2017 VH81 2 U[place]AS UNITED MEDICARE MCR(W Jun 18 [id number] Luz AUGUSTE PATIENT HEALTHCARE ADVANTAGE NR) 2021 37 0 [facility] (WNR) Selected Encounter This section includes the information on record at [place] for the Encounter. Date/Time Encounter Type Encounter Description Reason Provider Source Jun 13, 2021 03:33 Outpatient Encounter COMMUNITY CARE PM CONSULT IHE Encounter Template Text not used by [place] Plan of Treatment: Future Appointments (+ 6 months) and Future Tests (+/- 45 days) The Plan of Treatment section includes future care activities for the patient from all [place] treatmentfacilities. This section includes future appointments and future orders which are active, pending orscheduled.Future Appointments This section includes appointments that were scheduled to occur 6 months from the date of the Encounter, up to a maximum of 20 appointments. The data comes from all [place] treatment facilities. Appointment Date/Time Appointment Type Appointment Facili ty Name Jun 14, 2021 08:30 AM AMBULATORY [place] [facility] Jul 01, 2021 08:30 AM [facility]INE [facility] Jul 18, 2021 09:00 AM [place]IC[place] [facility] Jul 18, 2021 10:30 AM AMBULATORY - [place]ICINE [place] [facility] Aug 03, 2021 08:00 AM AMBULATORY - NONE [place] [facility] Sep 05, 2021 08:00 AM AMBUL[facility]ORY - [place]GERY [place] [facility] Sep 19, 2021 08:00 AM [facility]INE [facility] October 18, 2021 02:00 PM AM[facility]UL[facility] - MEDICINE [facility] November 15, 2021 10:00 AM AM[facility]UL[facility] - MEDICINE [facility] Dec 01, 2021 10:30 AM [place]ORY - NONE [place] [facility] Dec 06, 2021 11:40 AM [place] [facility] Lab Results: +/- 30 days of the encounter This section includes the Chemistry and Hematology Lab Results on record with [place] for the patient. Radiology Reports and Pathology Reports are provided separately, in subsequent sections.Lab Results This section contains the Chemistry/Hematology Results that were resulted 30 days before or 30 daysafter the date of the Encounter. Date/Time Source Result Type Result - Unit Interpretation Reference Range Comment Jul 01, 2021 08:17 [facility] LIPOPROTEIN CHOLESTEROL S pecimen Type: PLASMA AM FRACT. 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 Reflex testing not required. Ordering Provid er: ISHMAEL CATES Report Released Date/Time: May 16, 2021 09:42 AM Reporting Lab: [facility] [address] [facility] [address] Performing Lab: [facility] [address] [facility] [address] TSH 1.08 0.35-5.00 REFLEX TESTING comment May 16, 2021 09:43 AM [facility] LIVER PROFILE Specim en Type: PLASMA Comment: Tests performed on [employer] Management (405) SN:[id number] Ordering Provid er: ISHMAEL CATES Report Released Date/Time: May 16, 2021 09:42 AM Reporting Lab: [facility] [address] [facility] [address] Performing Lab: [facility] [address] [facility] [address] PROTEIN, TOTAL 8.0 6.0-8.5 ALBUMIN 3.9 3.2-5.0 BILIRUBIN, TOTAL 0.6 0.2-1.2 ALKALINE PHOSPHATASE 102 40-150 ALT(SGPT) 18 7-52 AST(SGOT) 15 5-34 May 16, 2021 [facility] GLYCOHEMOGLOBIN (A1C ONLY) S pecimen Type: BLOOD 09:43 AM Comment: Tests performed on [employer] (405) SN:[id number] Ordering Provid er: ISHMAEL CATES Report Released Date/Time: May 16, 2021 09:42 AM Reporting Lab: [facility] [address] [facility] [address] Performing Lab: [facility] [address] [facility] [address] HEMOGLOBIN A1C 5.8 H 4.0-5.6 May 16, 2021 [facility] P4 GLU,BUN,CREAT,LYTES,CA Sp ecimen Type: PLASMA 09:43 AM Comment: Tests performed on [employer] (405) SN:[id number] Ordering Provid er: ISHMAEL CATES Report Released Date/Time: May 16, 2021 09:42 AM Reporting Lab: [facility] [address] [facility] [address] Performing Lab: [facility] [address] [facility] [address] UREA NITROGEN 18 7-25 SODIUM 134 L 135-145 POTASSIUM 4.9 3.5-5.0 CHLORIDE 99 L 100-110 CARBON DIOXIDE 21 20-30 ANION GAP 14 4-16 GLUCOSE 108 H 65-100 CREATININE 1.35 0.5-1.5 CALCIUM 9.6 8.5-10.5 eGFR 52 L >60 May 16, 2021 09:43 [facility] LIPOPROTEIN CHOLESTEROL S pecimen Type: PLASMA AM FRACT. 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 Ordering Provid er: ISHMAEL CATES Report Released Date/Time: May 16, 2021 09:42 AM Reporting Lab: [facility] [address] [facility] [address] Performing Lab: [facility] [address] [facility] [address] WBC 10.3 4.5-11.0 RBC 5.64 4.23-5.66 HGB [...] smoking and tobacco-related health factors from the [place] facility where the Encounter took place.Current Smoking Status This section includes the most current smoking, or tobacco-related health factor, from the [place] facility where the Encounter took place. Date/Time Current Smoking Status Comment Facility Apr 01, 2020 01:16 PM QUIT TOBACCO USE 1-7 YEARS AGO [facility] Tobacco Use History This section includes a history of the smoking, or tobacco- related health factors, that were collected on or before the date of the Encounter. The data comes from the [place] facility where the Encounter took place. Date/Time Smoking Status/Tobacco Use Comment [facility] Mar 24, 2020 03:00 PM QUIT TOBACCO USE 1-7 YEARS AGO [facility] Feb 21, 2019 04:11 PM QUIT TOBACCO USE 1-7 YEARS AGO [facility] Feb 20, 2019 03:38 PM QUIT TOBACCO USE 1-7 YEARS AGO [facility] Feb 03, 2019 09:50 AM QUIT TOBACCO USE 1-7 YEARS AGO [facility] May 25, 2016 11:53 PM QUIT TOBACCO USE IN PAST YEAR [facility] MONTOYA [facility] May 23, 2016 06:57 PM QUIT TOBACCO USE > 7 YEARS AGO [facility] DUFFT [facility] May 19, 2016 03:55 PM QUIT TOBACCO USE IN PAST YEAR [facility] DUFFT [facility] May 19, 2016 10:29 AM QUIT TOBACCO USE 1-7 YEARS AGO [facility] MONTOYA [facility] May 01, 2016 07:26 PM QUIT TOBACCO USE IN PAST YEAR [facility] MONTOYA [facility] May 01, 2016 03:11 PM QUIT TOBACCO USE IN PAST YEAR C[facility] DUFFT [facility] May 01, 2016 11:19 AM QUIT TOBACCO USE IN PAST YEAR C[facility] MONTOYA [facility] Mar 16, 2016 12:50 PM V1-PT DECLINES REF TO TOBACCO C[facility] MONTOYA [facility] CESS [facility] Mar 16, 2016 12:50 PM V1-PT THINKING ABOUT QUIT [facility] DOYLE [place] [facility] TOBACCO USE Aug 12, 2015 08:48 AM CURRENT SMOKER [facility] MONTOYA [facility] Encounter Notes: All associated encounter notes This section contains the clinical notes associated to the Encounter. Date/Time Encounter Note(s) Provider Source Jun 13, 2021 03:33 PM NONVA CONSULT: JUDITH PALACIOS LOCAL TITLE: COMMUNITY CARE CONSULT RESULT NOTE [facility] [facility] STANDARD TITLE: NONVA CONSULT DATE OF NOTE: JUN 13, 2021@15:33 ENTRY DATE: JUN 21, 2021@15:34:26 AUTHOR: JUDITH PALACIOS COSIGNER: URGENCY: STATUS: COMPLETED VistA Imaging - Scanned Document COMMUNITY CARE-PODIATRY 06/13/2021 CLINIC NOTES/CONTINUED DIABETIC FOOT CARE [facility] // Judith Palacios T Signed: 06/21/2021 15:35
--- OUTSIDE RECORDS SUMMARY | 2022-01-19 07:52 | XMS_ITS | Encounter Summary ---
:1950 Author Organization [facility] Address [address] [place] [id number] Support Name Relationship Address Phone YUSRA MEEK Unavailable [address] [place] [address] YUSRA MEEK Unavailable [address] [place] [address] CLAY MOSLEY Unavailable Unavailable SJ SANTACRUZ Unavailable [...] MEDICARE MEDICARE PART Jun 18, PART A [id number] DO KALYANI PATIENT (WNR) (M) A 2016 13A 1 UGLAS MEDICARE MEDICARE PART Jun 18, PART B [id number] DO KALYANI PATIENT (WNR) (M) B 2016 13A 1 LAS MEDICARE MEDICARE PART Jun 18, PART A [id number] DO KALYANI PATIENT (WNR) (M) A 2017 VH81 2 LAS MEDICARE MEDICARE PART Jun 18, PART B [id number] DO KALYANI PATIENT (WNR) (M) B 2017 VH81 2 UGLAS UNITED MEDICARE MCR(Jun [id number] Luz MEEK PATIENT HEALTHCARE ADVANTAGE NR) [address] [facility] (WNR) Selected Encounter This section includes the information on record at [facility] for the Encounter. Date/Time Encounter Type Encounter Description Reason Provider Source Jul 08, 2021 08:31 Outpatient Encounter PRIMARY CARE/MEDICINE AM [facility] Encounter Template Text not used by AR Plan of Treatment: Future Appointments (+ 6 months) and Future Tests (+/- 45 days) The Plan of Treatment section includes future care activities for the patient from all AR treatmentfacilities. This section includes future appointments and future orders which are active, pending orscheduled.Future Appointments This section includes appointments that were scheduled to occur 6 months from the date of the Encounter, up to a maximum of 20 appointments. The data comes from all AR treatment facilities. Appointment Date/Time Appointment Type Appointment Facili ty Name Jul 18, 2021 09:00 AM AMBULATORY - MEDICINE [facility] Jul 18, 2021 10:30 [facility] Aug 03, 2021 08:00 [facility] Sep 05, 2021 08:00 [facility] Sep 19, 2021 08:00 AM [facility] October 18[facility] 2021 02:00 PM AMBULATORY - MEDICINE [facility] November 15, 2021 10:00 AM AM[facility]ULATORY - MEDICINE [facility] Dec 01, 2021 10:30 [facility] Dec 06, 2021 11:40 [facility] Dec 21, 2021 08:00 AM AMBULATORY - NONE [facility] Lab Results: +/- 30 days of the encounter This section includes the Chemistry and Hematology Lab Results on record with AR for the patient. Radiology Reports and Pathology Reports are provided separately, in subsequent sections.Lab Results This section contains the Chemistry/Hematology Results that were resulted 30 days before or 30 daysafter the date of the Encounter. Date/Time Source Result Type Result - Unit Interpretation Reference Range Comment Jul 01, 2021 08:17 [facility] LIPOPROTEIN CHOLESTEROL S pecimen Type: PLASMA AM FRACT. PANEL Comment: Tests performed on Qb[place] 405 [id number] Ordering Provid er: ISHMAEL CATES Report Released Date/Time: May 30, 2021 09:07 AM Reporting Lab: [facility] [address] [facility] [address] Performing Lab: [facility] [address] [facility] [address] CHOLESTEROL 187 0-199 TRIGLYCERIDE 153 H 0-149 HDL CHOLESTEROL 44 >40 LDL CHOLESTEROL (CALC) 112 0-129 Social History: Smoking Status (Most current) and Tobacco Use (All prior to encounter date) This section includes the most current, and the historical, smoking and tobacco-related health factors from the AR facility where the Encounter took place.Current Smoking Status This section includes the most current smoking, or tobacco-related health factor, from the AR facility where the Encounter took place. Date/Time Current Smoking Status Comment Facility Jun 29, 2017 07:18 AM QUIT TOBACCO USE 1-7 YEARS AGO [facility] quit mar 2016 Tobacco Use History This section includes a history of the smoking, or tobacco- related health factors, that were collected on or before the date of the Encounter. The data comes from the AR facility where the Encounter took place. Date/Time Smoking Status/Tobacco Use Comment [facility] Nov 21, 2016 08:42 AM QUIT TOBACCO USE 1-7 YEARS AGO [facility] apr 17 1916 Pathology Reports: +/- 30 days of the encounter Pathology Reports For cases when an order for pathology services may have been completed prior to the date of the Encounter, the report list includes the Pathology Reports that were completed up to 30 days before date of the Encounter. For cases when an order for pathology services may have been completed after the date of the Encounter, the report list also includes the Pathology Reports that were completed up to 30days after date of the Encounter. The data comes from all AR treatment facilities. Date/Time Pathology Report Provider Source Jul 20, 2021 08:24 AM LR SURGICAL PATHOLOGY REPORT: STEFANY MILLER [facility] LOCAL TITLE: LR SURGICAL PATHOLOGY REPORT [facility] STANDARD TITLE: PATHOLOGY REPORT DATE OF NOTE: JUL 20, 2021@08:24:41 ENTRY DATE: JUL 20, 2021@08:24:41 AUTHOR: NIURKA MILLER EXP COSIGNER: URGENCY: STATUS: COMPLETED $APHDR Reporting Lab: [facility] [CLIA# [id number]] [address] [place] [address] - - - - - - - - - - - - - - - - - - - - - - - - - - - - - - - - - - - - - - - - MEDICAL RECORD SURGICAL PATHOLOGY - - - - - - - - - - - - - - - - - - - - - - - - - - - - - - - - - - - - - - - - PATHOLOGY REPORT Accession No. 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 - - - - - - - - - - - - - - - - - - - - - - - - - - - - - - - - - - - - - - - - PREOPERATIVE DIAGNOSIS: None given - - - - - - - - - - - - - - - - - - - - - - - - - - - - - - - - - - - - - - - - OPERATIVE FINDINGS: Shave biopsy skin, left lateral forearm with a 1.5 cm well-defined heme crusted plaque with surrounding pink erythema - - - - - - - - - - - - - - - - - - - - - - - - - - - - - - - - - - - - - - - - POSTOPERATIVE DIAGNOSIS: BCC versus SCC Surgeon/physician: GUERA KLEIN [employer] =-=-=-=-=-=-=-=-=-=-=-=-=-=- =-=-=-=-=-=-=-=-=-=-=-=-=-=-=-=-=-=-=-=-=-=-=-=-=-= - - - - - - - - - - - - - - - - - - - - - - - - - - - - - - - - - - - - - - - - PATHOLOGY REPORT Accession No. SP [id number] - - - - - - - - - - - - - - - - - - - - - - - - - - - - - - - - - - - - - - - - GROSS DESCRIPTION: Name Label: Lucas Meek Paperwork: Lucas Meek Cassette: S2;.;Luz MEEK;.;405;[phone] Specimen is labeled: left lateral forearm Received in formalin are two shave biopsies of skin, 1.1 x 0.8 and 1.0 x 0.8 cm. Submitted entirely in 1 cassette [id number];.;Luz MEEK;.;405;[phone] 07/18/2021 Microscopic exam: DIAGNOSIS: A. Shave biopsy skin, left lateral forearm: Squamous cell carcinoma, transected The attending pathologist who signature mansoor ears on this report has reviewed all diagnostic slides and has edited t he gross and/or microscopic portion of this report in rendering the final pathologic diagnosis. [address] [address] CPT: 14232 /emely/ NIURKA Yeung MD Signed Jul 20, 2021@08:24 Performing Laboratory: Surgical Pathology Report Performed By: CAREY MONTOYA [facility] [CLIA# [id number]] [address] [place] [address] $FTR - - - - - - - - - - - - - - - - - - - - - - - - - - - - - - - - - - - - - - - - (End of report) NIURKA MILLER MD Date Jul 19, 2021 - - - - - - - - - - - - - - - - - - - - - - - - - - - - - - - - - - - - - - - - LUCAS MEEK STANDARD FORM 515 ID:[id number] SEX:M :1950 AGE: 71 LOC: [facility] PCP: Ishmael Rahman /emely/ NIURKA Yeung MD Signed: 07/20/2021 08:24 Encounter Notes: All associated encounter notes This section contains the clinical notes associated to the Encounter. Date/Time Encounter Note(s) Provider Source Jul 08, 2021 08:31 AM PRIMARY CARE ADMINISTRATIVE NOTE: ANAHI IZAGUIRRE [facility] LOCAL TITLE: Administrative Note/Primary Care P COLLEEN STANDARD TITLE: PRIMARY CARE ADMINISTRATIVE NOTE DATE OF NOTE: JUL 08, 2021@08:31 ENTRY DATE: JUL 08, 2021@08:31:28 AUTHOR: DIPIKA TINOCO EXP COSIGNER: URGENCY: STATUS: COMPLETED Administrative Note/Primary Care Has ADDEND A Please assign patient to [facility] - Saray Landeros MD - Apparently transferring his care to [place]. Thank you. /emely/ SARAY TINOCO MD Staff Physician Signed: 07/08/2021 08:32 Receipt Acknowledged By: 07/11/2021 07:42 /emely/ JANE ALEXANDRE 07/08/2021 09:32 /emely/ KATIE PABLO * AWAITING SIGNATURE * GIDEON IRWIN 07/08/2021 ADDENDUM STATUS: COMPLETED has future appt 11/15/2021 with [facility] scheduled /emely/ KATIE PABLO Signed: 07/08/2021 09:23 07/11/2021 ADDENDUM STATUS: COMPLETED Clio has been assigned per request /emely/ JANE ALEXANDRE Signed: 07/11/2021 07:42
--- OUTSIDE RECORDS SUMMARY | 2022-01-19 07:53 | XMS_ITS | Encounter Summary ---
:1950 Author Organization [facility] Address [address] [place] [id number] Support Name Relationship Address Phone YUSRA MEEK Unavailable [address] [place] [facility] [place] [address] YUSRA MEEK Unavailable [address] [place] [address] CLAY MOSLEY Unavailable Unavailable SJ SANTACRUZ Unavailable [...] MEDICARE MEDICARE PART Jun 18, PART A [id number] DO KALYANI PATIENT (WNR) (M) A 2016 13A 1 UGLAS MEDICARE MEDICARE PART Jun 18, PART B [id number] KALYANIDO PATIENT (WNR) (M) B 2016 13A 1 LAS MEDICARE MEDICARE PART Jun 18, PART A [id number] KALYANIDO PATIENT (WNR) (M) A 2017 VH81 2 LAS MEDICARE MEDICARE PART Jun 18, PART B [id number] KALYANIDO PATIENT (WNR) (M) B 2017 VH81 2 UGLAS UNITED MEDICARE MCR(W Jun 18 [id number] Luz MEEK PATIENT HEALTHCARE ADVANTAGE NR) 2021 37 0 [facility] (WNR) Selected Encounter This section includes the information on record at [place] for the Encounter. Date/Time Encounter Type Encounter Reason Provider Source Description Jul 18, 2021 OFFICE O/P EST DERMATOLOGY ICD-10-CM GUERA KLEIN 09:00 AM MOD 30-39 MIN Z85.820 A Personal history of malignant melanoma of skin with Provider Comments: Personal Hx of Malig Melanoma of Skin IHE Encounter Template Text not used by [facility] Assessments - Encounter Diagnoses This section includes the primary and secondary diagnoses documented for the Encounter. Date/Time Primary/Secondary Diagnosis Name Provider Source Diagnosis Jul 18, 2021 PRIMARY Personal history GUERA KLEIN [place] 09:36 AM of malignant [facility] melanoma of skin Jul 18, 2021 SECONDARY Neoplasm of GUERA KLEIN [place] 09:36 AM uncertain [facility] behavior of skin Jul 18, 2021 SECONDARY Other seborrheic GUERA KLEIN [place] 09:36 AM dermatitis [facility] Jul 18, 2021 SECONDARY Other viral warts GUERA KLEIN [place] 09:36 AM [facility] Jul 18, 2021 SECONDARY Xerosis cutis GUERA KLEIN [place] 09:36 AM [facility] Plan of Treatment: Future Appointments (+ 6 [...] Date/Time Appointment Type Appointment Facili ty Name Aug 03, 2021 08:00 AM AMBULATORY - NONE [place] [facility] Sep 05, 2021 08:00 AM AM[facility] [place] [facility] Sep 19, 2021 08:00 AM [facility] October 18, 2021 02:00 PM AMBULATORY - MEDICINE [facility] November 15, 2021 10:00 AM AM[facility]ULATORY - MEDICINE [facility] Dec 01, 2021 10:30 AM AM[place]UL[place] [place]ONE [place] [facility] Dec 06, 2021 11:40 AM AMBULATORY - MEDICINE [place] [facility] Dec 21, 2021 08:00 AM AMBULATORY - NONE [facility] Jan 06, 2022 02:00 PM AMBULATORY - REHAB MEDICINE [facility] Jan 10, 2022 11:30 AM AM[facility]ULATORY - [facility]ICINE [facility] Lab Results: +/- 30 days of the encounter This section includes the Chemistry and Hematology Lab Results on record with [facility] for the patient. Radiology Reports and Pathology Reports are provided separately, in subsequent sections.Lab Results This section contains the Chemistry/Hematology Results that were resulted 30 days before or 30 daysafter the date of the Encounter. Date/Time Source Result Type Result - Unit Interpretation Reference Range Comment Jul 01, 2021 08:17 [facility] LIPOPROTEIN CHOLESTEROL S pecimen Type: PLASMA AM FRACT. PANEL Comment: Tests performed on Gezlong (405) [id number] Ordering Provid er: ISHMAEL CATES Report Released Date/Time: May 30, 2021 09:07 AM Reporting Lab: [facility] [address] [facility] [address] Performing Lab: [facility] [address] [facility] [address] CHOLESTEROL 187 0-199 TRIGLYCERIDE 153 H 0-149 HDL CHOLESTEROL 44 >40 LDL CHOLESTEROL (CALC) 112 0-129 Vital Signs: All taken on the encounter date This section contains inpatient and outpatient Vital Signs collected on the date of the Encounter. Date/Time Temperature Pulse Blood Respiratory SP02 Pain Height Weight Amilcar dy Source Pressure Rate Mass Index Jul 18, 97.9 F 104 117/80 18 /min 97 % 282.3 38 WHITE 2021 10:03 /min mm[Hg] lb [facility] Social History: Smoking Status (Most current) [...] PM QUIT TOBACCO USE 1-[address] [facility] Tobacco Use History This section includes a history of the smoking, or tobacco- related health factors, that were collected on or before the date of the Encounter. The data comes from the [place] facility where the Encounter took place. Date/Time Smoking Status/Tobacco Use Comment Facil ity Mar 24, 2020 03:00 PM QUIT TOBACCO USE 1-7 YEARS AGO [facility] Feb 21, 2019 04:11 PM QUIT TOBACCO USE 1-7 YEARS AGO [facility] Feb 20, 2019 03:38 PM QUIT TOBACCO USE 1-7 YEARS AGO [facility] Feb 03, 2019 09:50 AM QUIT TOBACCO USE 1-7 YEARS AGO [facility] May 25, 2016 11:53 PM QUIT TOBACCO USE IN PAST YEAR [facility] May 23, 2016 06:57 PM QUIT TOBACCO USE > 7 YEARS AGO [facility] May 19, 2016 03:55 PM QUIT TOBACCO USE IN PAST YEAR [facility] May 19, 2016 10:29 AM QUIT TOBACCO USE 1-7 YEARS AGO [facility] May 01, 2016 07:26 PM QUIT TOBACCO USE IN PAST YEAR [facility] May 01, 2016 03:11 PM QUIT TOBACCO USE IN PAST YEAR [facility] May 01, 2016 11:19 AM QUIT TOBACCO USE IN PAST YEAR [facility] Mar 16, 2016 12:50 PM V1-PT DECLINES REF TO TOBACCO [facility] CESS PRGM Mar 16, 2016 12:50 PM V1-PT THINKING ABOUT QUIT [facility] TOBACCO USE Aug 12, 2015 08:48 AM CURRENT SMOKER [facility] Pathology Reports: +/- 30 days of the [...] the Encounter. The data comes from all [place] treatment facilities. Date/Time Pathology Report Provider Source Jul 20, 2021 08:24 AM LR SURGICAL PATHOLOGY REPORT: STEFANY MILLER [facility] LOCAL TITLE: LR SURGICAL PATHOLOGY REPORT [facility] STANDARD TITLE: PATHOLOGY REPORT DATE OF NOTE: JUL 20, 2021@08:24:41 ENTRY DATE: JUL 20, 2021@08:24:41 AUTHOR: NIURKA MILLER COSIGNER: URGENCY: STATUS: COMPLETED $APHDR Reporting Lab: [facility] [CLIA# [id number]] [address] [place] [address] - - - - - - [...] DIAGNOSIS: BCC versus SCC Surgeon/physician: GUERA KLEIN SALES TEACHER =-=-=-=-=-=-=-=-=-=-=-=-=-=- =-=-=-=-=-=-=-=-=-=-=-=-=-=-=-=-=-=-=-=-=-=-=-=-=-= - - - - - [...] Label: Lucas Meek Paperwork: Lucas Meek Cassette: [id number];.;Luz MEEK;.;405;[id number] Specimen is labeled: left lateral forearm Received in formalin are two shave biopsies of skin, 1.1 x 0.8 and 1.0 x 0.8 cm. Submitted entirely in 1 cassette [id number];.;Luz MEEK;.;405;[id number] 07/18/2021 Microscopic exam: DIAGNOSIS: A. Shave biopsy skin, left lateral forearm: Squamous cell carcinoma, transected The attending pathologist who signature mansoor ears on this report has reviewed all diagnostic slides and has edited t he gross and/or microscopic portion of this report in rendering the final pathologic diagnosis. [address] [address] CPT: 16229 /es/ NIURKA Yeung MD Signed Jul 20, 2021@08:24 Performing Laboratory: Surgical Pathology Report Performed By: [facility] [CLIA# [id number]] [address] [place] [id number] $FTR - - - - - [...] - - LUCAS MEEK STANDARD FORM 515 ID:[id number] SEX:M :1950 AGE: 71 LOC: [facility] PCP: Ishmael Rahman /emely/ NIURKA Yeung MD Signed: 07/20/2021 08:24 Encounter Notes: All associated encounter notes This section contains the clinical notes associated to the Encounter. Date/Time Encounter Note(s) Provider Source Jul 18, 2021 08:22 DERMATOLOGY NOTE: GUERA KLEIN T [facility] TITLE: Dermatology Note V [facility] STANDARD TITLE: DERMATOLOGY NOTE DATE OF NOTE: JUL 18, 2021@08:22 ENTRY DATE: JUL 18, 2021@08:23:01 AUTHOR: GUERA KLEIN EXP COSIGNER: URGENCY: STATUS: COMPLETED Dermatology Note Has ADDENDA F/up derm: Re-eval arms after am-lactin and no p icking skin. PROBLEM LIST (from November 19, 2020-present): review ed and summarized below. S: 71 y/o MALE with PMH lung cancer (05/2018 s/p chemotherapy/radiation/dervalumab, now in [facility]), diverituclitis (partial colonic resection), chronic back pain, COPD, joey io, OA s/p right TKA. Last seen November 2020, 5 biopsy proven skin ca's, all treated. Showers 2x/week, warm water, Dove soap. No moisturizer. Has Amlactin but doesn't use it because his dogs lick it off. Has seat in his shower. -Lesion forearm, lesion: noted at last visit, pt chronically picking, just removed scab while watching tv yesterday. Denies symptoms, no prior tx. -Left elbow: thickened lesion that he picks at r egularly. Also leans on his elbows regularly. Extensive sun exposure, live s in [place]. Played a lot of outdoor sports. Currently, does not spend much time outdoors due to his [employer]OR [employer] D and back pain. ROS: Denies other skin complaints. Feels well, d enies f/c/n/v. Active Outpatient Medications (excluding Supplie s): Active Outpatient Medications Status 1) ALBUTEROL 90MCG (CFC-F) 200D ORAL INHL INHALE 2 PUFFS ACTIVE BY MOUTH FOUR TIMES DAILY NEEDED FOR BREATHI NG 2) AMLODIPINE BESYLATE 5MG TAB TAKE ONE TABLET B Y MOUTH ACTIVE (S) EVERY DAY FOR BLOOD PRESSURE/HEART, DO NOT TAKE WITH GRAPEFRUIT JUICE 3) AMMONIUM LACTATE 12% LOTION APPLY THIN FILM T OPICALLY ACTIVE EVERY DAY FOR DRY IRRITATED SKIN ON ARMS AND LE GS 4) CARBOXYMETHYLCELLULOSE NA 0.5%(PF)OP BOB INST ILL ONE ACTIVE DROP IN BOTH EYES FOUR TIMES A DAY FOR DRYNESS 5) CHOLECALCIF 10MCG (D3-400UNIT) TAB TAKE ONE T ABLET BY ACTIVE MOUTH EVERY DAY 6) DICLOFENAC NA 1% TOP GEL APPLY 4 GRAMS TO LOW ER ACTIVE EXTREMITIES TOPICALLY FOUR TIMES DAILY NEEDE D FOR PAIN/INFLAMMATION. *DO NOT EXCEED 16 GRAMS DAILY TO ANY JOINT OF LOWER EXTREMITIES. DO NOT EXCEED 8 GRAMS DAILY TO ANY JOINT OF UPPER EXTREMITIES. DO NOT EXCEED TOTAL DOSE OF 32 GRA MS DAILY OVER ALL JOINTS. 7) HYDROPHILIC (EQV EUCERIN) TOP CREAM APPLY SMA LL ACTIVE AMOUNT TOPICALLY NEEDED 8) LOSARTAN 25MG TAB TAKE ONE-HALF TABLET BY HANNAH EVERY ACTIVE DAY FOR BLOOD PRESSURE/HEART 9) METFORMIN HCL 500MG 24HR SA TAB TAKE ONE TABL ET BY ACTIVE MOUTH EVERY DAY WITH A MEAL FOR DIABETES 10) OLODATEROL/TIOTROP 2.5MCG/ACTUAT 60D INH INH WARNER 2 ACTIVE PUFFS BY MOUTH EVERY DAY FOR BREATHING 11) SALICYLIC ACID 3% SHAMPOO SHAMPOO SMALL AMOU NT ACTIVE TOPICALLY ON MONDAYS, WEDNESDAYS AND FRIDAYS ; MASSAGE INTO SCALP, LET SIT 10 MIN AND RINSE 12) SERTRALINE HCL 50MG TAB TAKE THREE TABLETS B Y MOUTH ACTIVE EVERY DAY FOR DEPRESSION OR ANXIETY 13) TURMERIC CURCUMIN COMPLEX 500MG CAP/TAB TAKE ONE ACTIVE CAP/TAB BY MOUTH TWICE A DAY Allergies: LISINOPRIL O: WDWN MALE, NAD, A&Ox3. Upper body skin exam: head, neck, helices, back, chest, abdomen, jimmy arms, jimmy hands and fingerna ils. Significant findings: -Scalp: diffuse thick white flakes, mild erythem a. -Shave bx, skin. Left lateral forearm with a 1.5 cm well-defined heme-crusted plaque with surrounding pink erythema. DDx: BCC vs. SCC. -Right scapha: well healed slightly elevated pin k soft scar. -Left upper back: annular slightly hypertrophic pink scar. -Left elbow: -Central upper chest: well healed linear surgica l scar. NER. -Jimmy lower shins: few heme-crusted papules. -Severely dry skin. A/P: #.Shave bx x 1, left lateral forearm. -DDx: BCC vs. SCC -No pacemaker, no blood thinners, no allergies t o lidocaine/epi. -See timeout and procedure note below. #.H/o NMSC: -BCC, micronodular, right sc apha. s/p Mohs 02/10/2021. [facility] [place]/Dr. Richardson. 1 stage. 1.3 x 1.2 cm. Granulation repair. -BCC, superficial, left upper back. s/p ED&C, De rm Surg 12/13/20. -BCC, nodular, right mid-helix. s/p ED&C, DermSu rg 12/13/20. -BCC, nodular and micronodul ar, focal infilitrative features. Left medial upper chest. s/p WLE, DermSurg, 12/13/2020. -BCC, nodular and micronodular type, foc al infiltrating features. Right medial upper chest. s/p WLE, DermSurg, 12/13/2020. #.Seborrheic dermatitis. -Advise to increase bathing/ shampooing from 2x/wk to every other day until scalp is controlled. -Roman Acid shampoo alternating with OTC a nti-fungal shampoo. Massage into scalp with small amount of water, let sit 10 minutes a nd rinse. -Clobetasol 0.05% bob bid prn itch. Pt reports s eldom itch. #.VV, left elbow. -Joint decision to tx with LN2 x 2. Pt chronical ly picking, advised to avoid picking and potentially spreading. -Start Roman Acid 40% tape, cut to size of lesion and replace every 2-3 days. #.Xerosis, diffuse. Severe. -Pt denies itch, does not amilcar ther him. He noticed the flaking skin today and will try to apply the AmLactin lotion at bedtime. -Bathing regimen reviewed, increase to TIW. Blot dry, AmLactin lotion. #.Derrick Follower's nodules, scattered heme-crusted papul es and plaques, forearms, abdomen, lower legs. -Hx of anxiety/depression. Sertraline 150mg ronnell y as prescribed by PCP. Could trial a dose increase to see if it helps with the habitual picking/scratching. #.Onychomycosis. -Pt followed by Podiatry. #. Skin cancer screening -full body skin exam performed -Patient was counselled regarding sun avoidance, daily use of sunscreen with an SPF of 30 or greater, long sleeves, brim med hat, sunglasses. -monthly skin self-exams for lesions changing in size, shape, or color, or non- healing lesions -ABCDs of melanoma reviewed -Last FBSE: 11/19/2020 -Last upper body skin exam: 07/18/2021 RTC: November 2021 for FBSE. PROCEDURE TIME OUT Patient identifiers confirmed with patient: Rocio ent Name, SS#, Date of Confirmed patient allergies: RADIOLOGICAL/CONTRAST MEDIA MAY 28, 2017 (observ ed) Symptoms: None listed LISINOPRIL NOV 30, 2016 (observed) Symptoms: LIP SWELLING Reviewed planned procedure with patient Consent form completed, reviewed with patient an d signed Procedure site identified and marked All relevant images, pathology, and notes review ed. Need for prophylactic antibiotics assessed. SHAVE BIOPSY PROCEDURE NOTE Written and verbal consent o btained after discussion of risks with patient which include, but are not limited to, scar, infection, bleeding. Area identified and confirmed by patient. Area prepped with alcohol; anesthesia was obtain ed with Lidocaine 1% w/epi locally. The lesion was shaved and the specimen was sent to pathology. Hemostasis was obtained with (x ) minor electrod essication and/or ( ) AlCl. A dressing was applied and wound care instructions were given. There were no complications. Pt was instructed to call for res ults. 30 minutes were spent during today's encounter: including face to face, chart and outside documentation review, pt counseling, proedure, communication with other providers, and encounter documentation. /es/ GUERA KLEIN SALES TEACHER Signed: 07/18/2021 09:36 07/27/2021 ADDENDUM STATUS: COMPLETED NIKON IMAGES UPLOADED INTO CPRS /emely/ DMITRIY SHUKLA Registered nurse Signed: 07/27/2021 08:50
--- OUTSIDE RECORDS SUMMARY | 2022-01-19 07:53 | XMS_ITS | Encounter Summary ---
:1950 Author Organization [facility] rs Address [address] [place] [id number] Support Name Relationship Address Phone YUSRA MEEK Unavailable [address] [place] [address] YUSRA MEEK Unavailable [address] [place] [address] CLAY MOSLEY Unavailable Unavailable SJ SANTACRUZ Unavailable [...] MEDICARE MEDICARE PART Jun 18, PART B [id number] DO KALYANI PATIENT (WNR) (M) B 2016 13A 1 UGLAS MEDICARE MEDICARE PART Jun 18, PART A [id number] DO KALYANI PATIENT (WNR) (M) A 2017 VH81 2 LAS MEDICARE MEDICARE PART Jun 18, PART A [id number] DO KALYANI PATIENT (WNR) (M) A 2016 13A 1 UGLAS MEDICARE MEDICARE PART Jun 18, PART B [id number] DO KALYANI PATIENT (WNR) (M) B 2017 VH81 2 UGLAS UNITED MEDICARE MCR(Jun 18 [id number] Luz MEEK PATIENT HEALTHCARE ADVANTAGE NR) 2021 37 0 [facility] (WNR) Selected Encounter This section includes the information on record at [place] for the Encounter. Date/Time Encounter Type Encounter Description Reason Provider Source Jul 18, 2021 09:37 Outpatient Encounter DERMATOLOGY AM IHE Encounter Template Text not used by [facility] Plan of Treatment: Future Appointments (+ 6 months) and Future Tests (+/- 45 days) The Plan of Treatment section includes future care activities for the patient from all [place] treatmentfacilities. This section includes future appointments and future orders which are active, pending orscheduled.Future Appointments This section includes appointments that were scheduled to occur 6 months from the date of the Encounter, up to a maximum of 20 appointments. The data comes from all [place] treatment facilities. Appointment Date/Time Appointment Type Appointment Facili ty Name Aug 03, 2021 08:00 AM AM[place]ORY [place]ONE [place] [facility] Sep 05, 2021 08:00 AM AM[place]ORY [place] [facility] Sep 19, 2021 08:00 AM AMBULATORY - MEDICINE [facility] October 18, 2021 02:00 PM AMBULATORY - MEDICINE [facility] November 15, 2021 10:00 AM AMBULATORY - MEDICINE [facility] Dec 01, 2021 10:30 AM AMBUL[place]ORY [place] NONE [place] [facility] Dec 06, 2021 11:40 AM AM[place]UL[place]ORY [place]ICINE [place] [facility] Dec 21, 2021 08:00 AM AMBUL[place]ORY - NONE [place] [facility] Jan 06, 2022 02:00 PM [place] [facility] Jan 10, 2022 11:30 AM AMBULATORY - MEDICINE [facility] Lab Results: +/- 30 days of the encounter This section includes the Chemistry and Hematology Lab Results on record with [place] for the patient. Radiology Reports and Pathology Reports are provided separately, in subsequent sections.Lab Results This section contains the Chemistry/Hematology Results that were resulted 30 days before or 30 daysafter the date of the Encounter. Date/Time Source Result Type Result - Unit Interpretation Reference Range Comment Jul 01, 2021 08:17 [facility] LIPOPROTEIN CHOLESTEROL S pecimen Type: PLASMA AM FRACT. PANEL Comment: Tests performed on Clevers[employer] (405) [id number] Ordering Provid er: ISHMAEL CATES Report Released Date/Time: May 30, 2021 09:07 AM Reporting Lab: [place] [facility] [address] [facility] [address] Performing Lab: CAREY DOYLE T [facility] [address] [facility] [address] CHOLESTEROL 187 0-199 TRIGLYCERIDE 153 H 0-149 HDL CHOLESTEROL 44 >40 LDL CHOLESTEROL (CALC) 112 0-129 Vital Signs: All taken on the encounter date This section contains inpatient and outpatient Vital Signs collected on the date of the Encounter. Date/Time Temperature Pulse Blood Respiratory SP02 Pain Height Weight Tej dy Source Pressure Rate Mass Index Jul 18, 97.9 F 104 117/80 18 /min 97 % 282.3 38 WHITE 2021 10:03 /min mm[Hg] lb [place] AM T [facility] Social History: Smoking Status (Most current) and Tobacco Use (All prior to encounter date) This section includes the most current, and the historical, smoking and tobacco-related health factors from the [place] facility where the Encounter took place.Current Smoking Status This section includes the most current smoking, or tobacco-related health factor, from the [place] facility where the Encounter took place. Date/Time Current Smoking Status Comment [facility] Apr 01, 2020 01:16 PM QUIT TOBACCO USE 1-7 YEARS AGO [facility] Tobacco Use History This section includes a history of the smoking, or tobacco- related health factors, that were collected on or before the date of the Encounter. The data comes from the [place] facility where the Encounter took place. Date/Time Smoking Status/Tobacco Use Comment [facility] Mar 24, 2020 03:00 PM QUIT TOBACCO USE 1-7 YEARS AGO [place] [facility] Feb 21, 2019 04:11 PM QUIT TOBACCO USE 1-7 YEARS AGO [place] [facility] Feb 20, 2019 03:38 PM QUIT TOBACCO USE 1-7 YEARS AGO [place] [facility] Feb 03, 2019 09:50 AM QUIT TOBACCO USE 1-7 YEARS AGO [place] [facility] May 25, 2016 11:53 PM QUIT TOBACCO USE IN PAST YEAR [place] [facility] May 23, 2016 06:57 PM QUIT TOBACCO USE > 7 YEARS AGO [place] [facility] May 19, 2016 03:55 PM QUIT TOBACCO USE IN PAST YEAR [place] [facility] May 19, 2016 10:29 AM QUIT [facility]BACCO [facility] May 01, 2016 07:26 PM QUIT [facility] May 01, 2016 03:11 PM QUIT TOBACCO USE IN PAST YEAR [facility] May 01, 2016 11:19 AM QUIT TOBACCO USE IN PAST YEAR [facility] Mar 16, 2016 12:50 PM V1-PT DECLINES REF TO TOBACCO [facility] CESS PRGM Mar 16, 2016 12:50 PM V1-PT THINKING ABOUT QUIT [facility] TOBACCO USE Aug 12, 2015 08:48 AM CURRENT SMOKER CAREY Yates [facility] Pathology Reports: +/- 30 days of [...] the Encounter. The data comes from all [facility] facilities. Date/Time Pathology Report Provider Source Jul 20, 2021 08:24 AM LR SURGICAL PATHOLOGY REPORT: STEFANY MILLER [facility] LOCAL TITLE: LR SURGICAL PATHOLOGY REPORT [facility] STANDARD TITLE: PATHOLOGY REPORT DATE OF NOTE: JUL 20, 2021@08:24:41 ENTRY DATE: JUL 20, 2021@08:24:41 AUTHOR: NIURKA MILLER EXP COSIGNER: URGENCY: STATUS: COMPLETED $APHDR Reporting Lab: [facility] [CLIA# [id number]] [address] [place] [address] - - - - - - [...] DIAGNOSIS: BCC versus SCC Surgeon/physician: GUERA KLEIN ENGRAVED ROLLER INSPECTOR =-=-=-=-=-=-=-=-=-=-=-=-=-=- =-=-=-=-=-=-=-=-=-=-=-=-=-=-=-=-=-=-=-=-=-=-=-=-=-= - - - - - [...] Label: Lucas Meek Paperwork: Lucas Meek Cassette: [id number];.;Luz MEEK;.;405;[id number] Specimen is labeled: left lateral forearm Received in formalin are two shave biopsies of skin, 1.1 x 0.8 and 1.0 x 0.8 cm. Submitted entirely in 1 cassette [id number];.;Luz MEEK;.;405;[id number] 07/18/2021 Microscopic exam: DIAGNOSIS: A. Shave biopsy skin, left lateral forearm: Squamous cell carcinoma, transected The attending pathologist who signature mansoor ears on this report has reviewed all diagnostic slides and has edited t he gross and/or microscopic portion of this report in rendering the final pathologic diagnosis. [address] [address] CPT: 13350 /emely/ NIURKA Yeung MD Signed Jul 20, 2021@08:24 Performing Laboratory: Surgical Pathology Report Performed By: CAREY MONTOYA [facility] [CLIA# [id number]] [address] [place] [address] $FTR - - - - - [...] - - LUCAS MEEK STANDARD FORM 515 ID:[id number] SEX:M :1950 AGE: 71 LOC: [facility] PCP: Ishmael Rahman /emely/ NIURKA Yeung MD Signed: 07/20/2021 08:24 Encounter Notes: All associated encounter notes This section contains the clinical notes associated to the Encounter. Date/Time Encounter Note(s) Provider Source Jul 18, 2021 09:38 AM ADMINISTRATIVE NOTE: YAYA PAYNE LOCAL TITLE: Has Admin Note [facility]3] STANDARD TITLE: ADMINISTRATIVE NOTE DATE OF NOTE: JUL 18, 2021@09:38 ENTRY DATE: JUL 18, 2021@09:38:03 AUTHOR: YAYA PAYNE EXP COSIGNER: URGENCY: STATUS: COMPLETED Reason for call Clinic Name:[facility] B2RD RTC 1st call, Letter sent Spoke with patient and negotiated a date/ time f or appt. The appt is scheduled for: Date/Time: Sunday 10:00 AM Clinic: DANN KLEIN B2 Address confirmed and letter sent. /emely/ YAYA PAYNE Advanced MSA Signed: 07/18/2021 09:40
--- OUTSIDE RECORDS SUMMARY | 2022-01-19 07:54 | XMS_ITS | Encounter Summary ---
:1950 Author Organization Department [facility] Address [address] [place] [address] Support Name Relationship Address Phone YUSRA MEEK Unavailable [address] [place] [facility] [place] [address] YUSRA MEEK Unavailable [address] [place] [facility] [place] [address] CLAY MOSLEY Unavailable Unavailable SJ SANTACRUZ Unavailable [...] MEDICARE MEDICARE PART Jun 18, PART A [id number] MEEK DO PATIENT (WNR) (M) A 2016 13A 1 UGLAS MEDICARE MEDICARE PART Jun 18, PART B [id number] MEEK DO PATIENT (WNR) (M) B 2016 13A 1 UGLAS MEDICARE MEDICARE PART Jun 18, PART A [id number] KALYANIDO PATIENT (WNR) (M) A 2017 VH81 2 UGLAS MEDICARE MEDICARE PART Jun 18, PART B [id number] KALYANIDO PATIENT (WNR) (M) B 2017 VH81 2 LAS UNITED MEDICARE MCR(Jun 18 [id number] Luz MEEK PATIENT HEALTHCARE ADVANTAGE NR) 2021 37 0 [facility] (WNR) Selected Encounter This section includes the information on record at [place] for the Encounter. Date/Time Encounter Type Encounter Reason Provider Source Description Jul 20, 2021 08:24 Outpatient EVENT (HISTORICAL) NIURKA MILLER AM Encounter IHE Encounter Template Text not used by [place] Plan of Treatment: Future Appointments (+ 6 months) and Future Tests (+/- 45 days) The Plan of Treatment section includes future care activities for the patient from [facility] [place] [facility] This section includes future appointments and future orders which are active, pending orscheduled.Future Appointments This section includes appointments that were scheduled to occur 6 months from the date of the Encounter, up to a maximum of 20 appointments. The data comes from all [place] treatment facilities. Appointment Date/Time Appointment Type Appointment Facili ty Name Aug 03, 2021 08:00 AM AM[place]ATORY - NONE [place] [facility] Sep 05, 2021 08:00 AM AMBUL[place]ORY - [place]GERY [place] [facility]3] Sep 19, 2021 08:00 AM AMBULATORY - MEDICINE [facility] October 18, 2021 02:00 PM AMBULATORY - MEDICINE [facility] November 15, 2021 10:00 AM AMBULATORY - MEDICINE [facility] Dec 01, 2021 10:30 AM AMBUL[place]ORY - NONE [place] [facility] Dec 06, 2021 11:40 AM [place]IC[place] [facility] Dec 21, 2021 08:00 AM AMBULATORY - NONE [place] [facility] Jan 06, 2022 02:00 PM AMBULATORY - [place] [facility] Jan 10, 2022 11:30 AM AMBULATORY - MEDICINE [facility] Lab Results: +/- 30 days of the encounter This section includes the Chemistry and Hematology Lab Results on record with [place] for the patient. Radiology Reports and Pathology [...] AM FRACT. PANEL Comment: Tests performed on [employer]Pin[employer] (405) [id number] Ordering Provid er: ISHMAEL CATES Report Released Date/Time: May 30, 2021 09:07 AM Reporting Lab: [place] [facility] [address] [facility] [address] Performing Lab: CAREY DOYLE [facility] [address] [facility] [address] CHOLESTEROL 187 0-199 TRIGLYCERIDE 153 H 0-149 HDL CHOLESTEROL 44 >40 LDL CHOLESTEROL (CALC) 112 0-129 Social History: Smoking Status (Most current) and Tobacco Use (All prior to encounter date) This section includes the most current, and the historical, smoking and tobacco-related health factors from the [place] facility where the Encounter took place.Current Smoking Status This section includes the most current smoking, or tobacco-related health factor, from the [place] facility where the Encounter took place. Date/Time Current Smoking Status Comment [facility] Apr 01, 2020 01:16 PM QUIT TOBACCO USE 1-[address] [facility] Tobacco Use History This section includes a history of the smoking, or tobacco- related health factors, that were collected on or before the date of the Encounter. The data comes from the [place] facility where the Encounter took place. Date/Time Smoking Status/Tobacco Use Comment [facility] Mar 24, 2020 03:00 PM QUIT TOBACCO USE 1-[address] [facility] Feb 21, 2019 04:11 PM QUIT TOBACCO USE 1-[address] [facility] Feb 20, 2019 03:38 PM QUIT TOBACCO USE 1-[address] [facility] Feb 03, 2019 09:50 AM QUIT TOBACCO USE 1-[address] [facility] May 25, 2016 11:53 PM QUIT TOBACCO USE IN PAST YEAR [facility] May 23, 2016 06:57 PM QUIT TOBACCO USE > [address] [facility] May 19, 2016 03:55 PM QUIT TOBACCO USE IN PAST YEAR [facility] May 19, 2016 10:29 AM QUIT TOBACCO USE 1-[address] [facility] May 01, 2016 07:26 PM QUIT TOBACCO USE IN PAST YEAR [facility] May 01, 2016 03:11 PM QUIT TOBACCO USE IN PAST YEAR [facility] May 01, 2016 11:19 AM QUIT TOBACCO USE IN PAST YEAR [facility] Mar 16, 2016 12:50 PM V1-PT DECLINES REF TO TOBACCO [facility] CESS PR[facility] Mar 16, 2016 12:50 PM V1-PT THINKING ABOUT QUIT CAREY DOYLE [facility] TOBACCO USE Aug 12, 2015 08:48 AM CURRENT SMOKER CAREY Yates [facility] Pathology Reports: +/- 30 days of the [...] the Encounter. The data comes from all [facility] facilities. Date/Time Pathology Report Provider Source Jul 20, 2021 08:24 AM LR SURGICAL PATHOLOGY REPORT: STEFANY MILLER CAREY DOYLE [facility] LOCAL TITLE: LR SURGICAL PATHOLOGY REPORT [facility] STANDARD TITLE: PATHOLOGY REPORT DATE OF NOTE: JUL 20, 2021@08:24:41 ENTRY DATE: JUL 20, 2021@08:24:41 AUTHOR: NIURKA MILLER EXP COSIGNER: URGENCY: STATUS: COMPLETED $APHDR Reporting Lab: CAREY DOYLE [facility] [CLIA# [id number]] [address] [place] [address] - - - - - - [...] - Specimen (Received Jul 18, 2021 11:24): BRANVE BX SKIN, LEFT LATERAL FOREARM - - [...] DIAGNOSIS: BCC versus SCC Surgeon/physician: GUERA KLEIN INSURANCE CLAIM AUDITOR =-=-=-=-=-=-=-=-=-=-=-=-=-=- =-=-=-=-=-=-=-=-=-=-=-=-=-=-=-=-=-=-=-=-=-=-=-=-=-= - - - - - [...] Lucas Meek Paperwork: Lucas Meek Cassette: S2;.;Luz MEEK;.;405;[id number] Specimen is labeled: left lateral forearm Received in formalin are two shave biopsies of skin, 1.1 x 0.8 and 1.0 x 0.8 cm. Submitted entirely in 1 cassette [id number];.;Luz MEEK;.;405;[id number] 07/18/2021 Microscopic exam: DIAGNOSIS: A. Shave biopsy skin, left lateral forearm: Squamous cell carcinoma, transected The attending pathologist who signature mansoor ears on this report has reviewed all diagnostic slides and has edited t he gross and/or microscopic portion of this report in rendering the final pathologic diagnosis. [address] [address] CPT: 29280 /emely/ NIURKA Yeung MD Signed Jul 20, 2021@08:24 Performing Laboratory: Surgical Pathology Report [facility] By: [facility] [[facility]# [id number]] [address] [place] [address] $FTR - - - - - [...] - - LUCAS MEEK STANDARD FORM 515 ID:[id number] SEX:M :1950 AGE: 71 LOC: [facility] PCP: Ishmael Rahman /emely/ NIURKA Yeung MD Signed: 07/20/2021 08:24 Encounter Notes: All associated encounter notes This section contains the clinical notes associated to the Encounter. Date/Time Encounter Note(s) Provider Source Jul 20, 2021 08:24 AM PATHOLOGY REPORT: NIURKA MILLER [facility] LOCAL TITLE: LR SURGICAL PATHOLOGY REPORT [facility] STANDARD TITLE: PATHOLOGY REPORT DATE OF NOTE: JUL 20, 2021@08:24:41 ENTRY DATE: JUL 20, 2021@08:24:41 AUTHOR: NIURKA MILLER EXP COSIGNER: URGENCY: STATUS: COMPLETED $APHDR Reporting [facility] [id number]] [address] [place] [address] - - - - - - [...] DIAGNOSIS: BCC versus SCC Surgeon/physician: GUERA KLEIN INSURANCE CLAIM AUDITOR =-=-=-=-=-=-=-=-=-=-=-=-=-=- =-=-=-=-=-=-=-=-=-=-=-=-=-=-=-=-=-=-=-=-=-=-=-=-=-= - - - - - [...] Label: Lucas Meek Paperwork: Lucas Meek Cassette: [id number];.;Luz MEEK;.;405;[id number] Specimen is labeled: left lateral forearm Received in formalin are two shave biopsies of skin, 1.1 x 0.8 and 1.0 x 0.8 cm. Submitted entirely in 1 cassette [id number];.;Luz MEEK;.;405;[id number] 07/18/2021 Microscopic exam: DIAGNOSIS: A. Shave biopsy skin, left lateral forearm: Squamous cell carcinoma, transected The attending pathologist who signature mansoor ears on this report has reviewed all diagnostic slides and has edited t he gross and/or microscopic portion of this report in rendering the final pathologic diagnosis. [address] [address] CPT: 51041 /emely/ NIURKA Yeung MD Signed Jul 20, 2021@08:24 Performing Laboratory: Surgical Pathology Report Performed By: CAREY DOYLE [place] [facility] [CLIA# [id number]] [address] [place] [address] $FTR - - - - - [...] - - LUCAS MEEK STANDARD FORM 515 ID:[id number] SEX:M :1950 AGE: 71 LOC: [facility] PCP: Ishmael Rahman /charmaine Yeung MD Signed: 07/20/2021 08:24
--- OUTSIDE RECORDS SUMMARY | 2022-01-19 07:54 | XMS_ITS | Encounter Summary ---
:1950 Author Organization [facility] Address [address] [place] [address] Support Name Relationship Address Phone YUSRA MEEK Unavailable [address] [place] [facility] [place] [address] YUSRA MEEK Unavailable [address] [place] [facility] [place] [place] [address] CLAY MOSLEY Unavailable Unavailable SJ SANTACRUZ Unavailable [...] MEDICARE MEDICARE PART Jun 18, PART A [id number] DO KALYANI PATIENT (WNR) (M) A 2016 13A 1 UGLAS MEDICARE MEDICARE PART Jun 18, PART B [id number] DO KALYANI PATIENT (WNR) (M) B 2016 13A 1 U[place]AS MEDICARE MEDICARE PART Jun 18, PART A [id number] KALYANIDO PATIENT (WNR) (M) A 2017 VH81 2 UGLAS MEDICARE MEDICARE PART Jun 18, PART B [id number] DO KALYANI PATIENT (WNR) (M) B 2017 VH81 2 LAS UNITED MEDICARE MCR(Jun 18 [id number] Luz MEEK PATIENT HEALTHCARE ADVANTAGE NR) 2021 [facility] Selected Encounter This section includes the information on record at [place] for the Encounter. Date/Time Encounter Type Encounter Reason Provider Source Description Jul 22, 2021 Outpatient TELEPHONE/MEDICIN ICD-10-CM GUERA KLEIN 09:41 AM Encounter E C44.629 A Squamous cell carcinoma skin/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, inc shoulder with Provider Comments: Squamous Cell Carcinoma of Skin of left upper Limb, including Shoulder IHE Encounter Template Text not used by [facility] Assessments - Encounter Diagnoses This section includes the primary and secondary diagnoses documented for the Encounter. Date/Time Primary/Secondary Diagnosis Name Provider Source Diagnosis Jul 22, 2021 PRIMARY Squamous cell GUERA KLEIN A CAREY DOYLE 09:41 AM carcinoma skin/ JCT [facility]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, inc shoulder Plan of Treatment: Future Appointments (+ 6 months) and Future Tests (+/- 45 days) The Plan of Treatment section includes future care activities for the patient from all [place] treatmentfacilities. This section includes future appointments and future orders which are active, pending orscheduled.Future Appointments This section includes appointments that were scheduled to occur 6 months from the date of the Encounter, up to a maximum of 20 appointments. The data comes from all [place] treatment facilities. Appointment Date/Time Appointment Type Appointment Facili ty Name Aug 03, 2021 08:00 AM AM[place]ORY [place]ONE [place] [facility] Sep 05, 2021 08:00 AM AMBULATORY [place] [facility] Sep 19, 2021 08:00 AM AM[facility]ULATORY - MEDICINE [facility] October 18, 2021 02:00 PM AMBULATORY - MEDICINE [facility] November 15, 2021 10:00 AM AMBULATORY - MEDICINE [facility] Dec 01, 2021 10:30 AM AMBULATORY - NONE [place] [facility] Dec 06, 2021 11:40 AM AMBULATORY [place]ICINE [place] [facility] Dec 21, 2021 08:00 AM AMBULATORY - NONE [place] [facility] Jan 06, 2022 02:00 PM [place] [facility] Jan 10, 2022 11:30 AM AMBULATORY - MEDICINE [facility] Lab Results: +/- 30 days of the encounter This section includes the Chemistry and Hematology Lab Results on record with [place] for the patient. Radiology Reports and Pathology Reports are provided separately, in subsequent sections.Lab Results This section contains the Chemistry/Hematology Results that were resulted 30 days before or 30 daysafter the date of the Encounter. Date/Time Source Result Type Result - Unit Interpretation Reference Range Comment Jul 01, 2021 08:17 [facility] LIPOPROTEIN CHOLESTEROL S pecimen Type: PLASMA AM FRACT. PANEL Comment: Tests performed on [employer] (203) [id number] Ordering Provid er: ISHMAEL CATES Report Released Date/Time: May 30, 2021 09:07 AM Reporting Lab: [facility] [address] [facility] [address] Performing Lab: [facility] [address] [facility] [address] CHOLESTEROL 187 0-199 TRIGLYCERIDE 153 H 0-149 HDL CHOLESTEROL 44 >40 LDL CHOLESTEROL (CALC) 112 0-129 Social History: Smoking Status (Most current) and Tobacco Use (All prior to encounter date) This section includes the most current, and the historical, smoking and tobacco-related health factors from the [place] facility where the Encounter took place.Current Smoking Status This section includes the most current smoking, or tobacco-related health factor, from the [place] facility where the Encounter took place. Date/Time Current Smoking Status Comment [facility] Apr 01, 2020 01:16 PM QUIT TOBACCO USE 1-7 YEARS AGO [facility] Tobacco Use History This section includes a history of the smoking, or tobacco- related health factors, that were collected on or before the date of the Encounter. The data comes from the [place] facility where the Encounter took place. Date/Time Smoking Status/Tobacco Use Comment [facility] Mar 24, 2020 03:00 PM QUIT TOBACCO USE 1-7 YEARS AGO [facility] Feb 21, 2019 04:11 PM QUIT TOBACCO USE 1-7 YEARS AGO [facility] Feb 20, 2019 03:38 PM QUIT TOBACCO USE 1-7 YEARS AGO [facility] Feb 03, 2019 09:50 AM QUIT TOBACCO USE 1-7 YEARS AGO [facility] May 25, 2016 11:53 PM QUIT TOBACCO USE IN PAST YEAR [facility] May 23, 2016 06:57 PM QUIT TOBACCO USE > 7 YEARS AGO [facility] May 19, 2016 03:55 PM QUIT TOBACCO USE IN PAST YEAR [facility] May 19, 2016 10:29 AM QUIT TOBACCO USE 1-7 YEARS AGO [facility] DO[facility] May 01, 2016 07:26 PM QUIT TOBACCO USE IN PAST YEAR [facility] DOYLE [facility] May 01, 2016 03:11 PM QUIT TOBACCO USE IN PAST YEAR [facility] DOYLE [facility] May 01, 2016 11:19 AM QUIT TOBACCO USE IN PAST YEAR [facility] DOYLE [facility] Mar 16, 2016 12:50 PM V1-PT DECLINES REF TO TOBACCO CAREY DOYLE [facility] CESS PRGM Mar 16, 2016 12:50 PM V1-PT THINKING ABOUT QUIT CAREY DOYLE [facility] TOBACCO USE Aug 12, 2015 08:48 AM CURRENT SMOKER CAREY Yates [facility] Pathology Reports: +/- 30 days of the [...] the Encounter. The data comes from all [facility] facilities. Date/Time Pathology Report Provider Source Jul 20, 2021 08:24 AM LR SURGICAL PATHOLOGY REPORT: STEFANY MILLER CAREY DOYLE [facility] LOCAL TITLE: LR SURGICAL PATHOLOGY REPORT [facility] STANDARD TITLE: PATHOLOGY REPORT DATE OF NOTE: JUL 20, 2021@08:24:41 ENTRY DATE: JUL 20, 2021@08:24:41 AUTHOR: NIURKA MILLER EXP COSIGNER: URGENCY: STATUS: COMPLETED $APHDR Reporting Lab: CAREY DOYLE [facility] [CLIA# [id number]] [address] [place] [address] - - - - - - [...] DIAGNOSIS: BCC versus SCC Surgeon/physician: GUERA KLEIN MINIATURE SET BUILDER =-=-=-=-=-=-=-=-=-=-=-=-=-=- =-=-=-=-=-=-=-=-=-=-=-=-=-=-=-=-=-=-=-=-=-=-=-=-=-= - - - - - [...] Label: Lucas Meek Paperwork: Lucas Meek Cassette: [id number];.;Luz MEEK;.;405;[id number] Specimen is labeled: left lateral forearm Received in formalin are two shave biopsies of skin, 1.1 x 0.8 and 1.0 x 0.8 cm. Submitted entirely in 1 cassette [id number];.;Luz MEEK;.;405;[id number] 07/18/2021 Microscopic exam: DIAGNOSIS: A. Shave biopsy skin, left lateral forearm: Squamous cell carcinoma, transected The attending pathologist who signature mansoor ears on this report has reviewed all diagnostic slides and has edited t he gross and/or microscopic portion of this report in rendering the final pathologic diagnosis. [address] [address] CPT: [id number] /emely/ NIURKA Yeung MD Signed Jul 20, 2021@08:24 Performing Laboratory: Surgical Pathology Report Performed By: CAREY MONTOYA [facility] [CLIA# [id number]] [address] [place] [address] $FTR - - - - - [...] - - LUCAS MEEK STANDARD FORM 515 ID:[id number] SEX:M :1950 AGE: 71 LOC: MINI TER PCP: Ishmael Rahman /emely/ NIURKA Yeung MD Signed: 07/20/2021 08:24 Encounter Notes: All associated encounter notes This section contains the clinical notes associated to the Encounter. Date/Time Encounter Note(s) Provider Source Jul 22, 2021 09:41 AM DERMATOLOGY TELEPHONE ENCOUNTER NOTE: GUERA CABRERA LOCAL TITLE: Telephone Note/Dermatology [facility] STANDARD TITLE: DERMATOLOGY TELEPHONE ENCOUNTER NOTE DATE OF NOTE: JUL 22, 2021@09:41 ENTRY DATE: JUL 22, 2021@09:41:07 AUTHOR: GUERA KLEIN EXP COSIGNER: URGENCY: STATUS: COMPLETED Telephone Note/Dermatology Has ADDENDA Spoke to pt, reviewed pathology and tx options i ncluding WLE vs. Mohs vs. do nothing. Risks/benefis revie wed as well. Pt prefers WLE with Derm Surg. Area is healing well, he has no issues/concerns. Pt agre ed to below date/time for excision. Pre-Sx Checklist: 1. Allergy to: a. Latex - no b. Iodine - no c. Lidocaine - no d. Epinephrine - no 2. Joint replacements - right knee(early ) 3. Artificial Heart Valves - no 4. Pacemaker/Defibrillator - no 5. Abx prior to Dental Work - no 6. Blood Thinners - no Plan: -WLE, Derm Surg. 09/05/2021 at 9am. -Adding Dr. Julee Hidalgo and Dr. Thomas for review prior to procedure date. [id number];.;Luz MEEK;.;405;[id number] 07/18/2021 Microscopic exam: DIAGNOSIS: A. Shave biopsy skin, left lateral forearm: Squamous cell carcinoma, transected 15 min /emely/ GUERA KLEIN MINIATURE SET BUILDER Signed: 07/22/2021 11:10 Receipt Acknowledged By: 08/07/2021 18:51 /emely/ SASHA THOMAS DERMATOLOGY ATTENDING PHYSICIAN 07/28/2021 10:53 /emely/ Julee Hidalgo MD Resident Physician 07/25/2021 ADDENDUM STATUS: COMPLETED Josafat Vick, Are pictures available? I don't see them in Vist richard Ladd /charmaine Hidalgo MD Resident Physician Signed: 07/25/2021 11:41 /emely/ SASHA THOMAS DERMATOLOGY ATTENDING PHYSICIAN Cosigned: 08/07/2021 18:53 07/27/2021 ADDENDUM STATUS: COMPLETED Dr. Hidalgo, they've been uploaded recently by Leonel vincent RN. She's currently detailed and uploading photos when she can. /es/ GUERA KLEIN MINIATURE SET BUILDER Signed: 07/27/2021 18:25 Receipt Acknowledged By: 07/28/2021 08:46 /emely/ Julee Hidalgo MD Resident Physician
--- OUTSIDE RECORDS SUMMARY | 2022-01-19 07:54 | XMS_ITS | Encounter Summary ---
:1950 Author Organization [facility] Address [address] [place] [address] Support Name Relationship Address Phone YUSRA MEEK Unavailable [address] [place] [facility] [place] [address] YUSRA MEEK Unavailable [address] [address] CLAY MOSLEY Unavailable Unavailable SJ SANTACRUZ Unavailable [...] MEDICARE MEDICARE PART Jun 18, PART A [id number] DO KALYANI PATIENT (WNR) (M) A 2016 13A 1 UGLAS MEDICARE MEDICARE PART Jun 18, PART B [id number] KALYANIDO PATIENT (WNR) (M) B 2016 13A 1 LAS MEDICARE MEDICARE PART Jun 18, PART A [id number] KALYANIDO PATIENT (WNR) (M) A 2017 VH81 2 LAS MEDICARE MEDICARE PART Jun 18, PART B [id number] KALYANIDO PATIENT (WNR) (M) B 2017 VH81 2 U[place]AS UNITED MEDICARE MCR(W Jun 18 [id number] Luz MEEK PATIENT HEALTHCARE ADVANTAGE NR) 2021 37 0 [facility] (WNR) Selected Encounter This section includes the information on record at [place] for the Encounter. Date/Time Encounter Type Encounter Reason Provider Source Description Jul 18, 2021 OFFICE O/P EST RHEUMATOLOGY/ART ICD-10-CM M19.91 Alexandra AUSTINSue Fariba 10:30 AM MOD 30-39 MIN HRITIS Primary osteoarthritis, unspecified site with Provider Comments: Osteoarthritis (SNOMED CT 320562122) IHE Encounter Template Text not used by [facility] Assessments - Encounter Diagnoses This section includes the primary and secondary diagnoses documented for the Encounter. Date/Time Primary/Secondary Diagnosis Name Provider Source Diagnosis Jul 18, 2021 PRIMARY Primary RAKHRA,BUNNY [place] 11:01 AM osteoarthritis, [facility] unspecified site Jul 18, 2021 SECONDARY Psoriasis, RAKHRA,BUNNY [place] 11:01 AM unspecified [facility] Plan of Treatment: Future Appointments (+ 6 months) and Future Tests (+/- 45 days) The Plan of Treatment section includes future care activities for the patient from all [place] treatmentfacilities. This section includes future appointments and future orders which are active, pending orscheduled.Future Appointments This section includes appointments that were scheduled to occur 6 months from the date of the Encounter, up to a maximum of 20 appointments. The data comes from all [place] treatment facilities. Appointment Date/Time Appointment Type Appointment Facili ty Name Aug 03, 2021 08:00 AM AM[place]ATORY - NONE [place] [facility] Sep 05, 2021 08:00 AM [place] [facility] Sep 19, 2021 08:00 AM AMBULATORY - MEDICINE [facility] October 18, 2021 02:00 PM AMBULATORY - MEDICINE [facility] November 15, 2021 10:00 AM AMBULATORY - MEDICINE [facility] Dec 01, 2021 10:30 AM AMB[place]ORY - NONE [place] [facility] Dec 06, 2021 11:40 AM [place] [facility] Dec 21, 2021 08:00 AM AMB[place]ATORY - NONE [place] [facility] Jan 06, 2022 02:00 PM AMBULATORY - REHAB MEDICINE CAREY Yates [facility] Jan 10, 2022 11:30 AM AMBULATORY - MEDICINE [facility] Lab Results: +/- 30 days of the encounter This section includes the Chemistry and Hematology Lab Results on record with [place] for the patient. Radiology Reports and Pathology Reports are provided separately, in subsequent sections.Lab Results This section contains the Chemistry/Hematology Results that were resulted 30 days before or 30 daysafter the date of the Encounter. Date/Time Source Result Type Result - Unit Interpretation Reference Range Comment Jul 01, 2021 08:17 [facility] LIPOPROTEIN CHOLESTEROL S pecimen Type: PLASMA AM FRACT. PANEL Comment: Tests performed on [employer] (405) [id number] Ordering Provid er: ISHMAEL CATES Report Released Date/Time: May 30, 2021 09:07 AM Reporting Lab: [facility] [address] [facility] [address] Performing Lab: [facility] [address] [facility] [address] CHOLESTEROL 187 0-199 TRIGLYCERIDE 153 H 0-149 [...] WHITE 2021 10:03 /min mm[Hg] lb [place]PLACED BY [facility] Social History: Smoking Status (Most current) and Tobacco Use (All prior to encounter date) This section includes the most current, and the historical, smoking and tobacco-related health factors from the [place] facility where the Encounter took place.Current Smoking Status This section includes the most current smoking, or tobacco-related health factor, from the [place] facility where the Encounter took place. Date/Time Current Smoking Status Comment Facility Apr 01, 2020 01:16 PM QUIT TOBACCO USE 1-7 YEARS AGO [facility] Tobacco Use History This section includes a history of the smoking, or tobacco- related health factors, that were collected on or before the date of the Encounter. The data comes from the [place] facility where the Encounter took place. Date/Time Smoking Status/Tobacco Use Comment [facility] Mar 24, 2020 03:00 PM QUIT TOBACCO USE 1-7 YEARS AGO [facility] Feb 21, 2019 04:11 PM QUIT TOBACCO USE 1-7 YEARS AGO [facility] Feb 20, 2019 03:38 PM QUIT TOBACCO USE 1-7 YEARS AGO [facility] DO[facility] Feb 03, 2019 09:50 AM QUIT TOBACCO USE 1-7 YEARS AGO [facility] DO[facility] May 25, 2016 11:53 PM QUIT TOBACCO USE IN PAST YEAR [facility] DO[facility] May 23, 2016 06:57 PM QUIT TOBACCO USE > 7 YEARS AGO [facility] DO[facility] May 19, 2016 03:55 PM QUIT TOBACCO USE IN PAST YEAR [facility] DO[facility] May 19, 2016 10:29 AM QUIT TOBACCO USE 1-7 YEARS AGO [facility] May 01, 2016 07:26 PM QUIT TOBACCO USE IN PAST YEAR [facility] May 01, 2016 03:11 PM QUIT TOBACCO USE IN PAST YEAR [facility] May 01, 2016 11:19 AM QUIT TOBACCO USE IN PAST YEAR [facility] DO[facility] Mar 16, 2016 12:50 PM V1-PT DECLINES REF TO TOBACCO C[facility]Y DOYLE [facility] CESS PR[facility] Mar 16, 2016 12:50 PM V1-PT THINKING ABOUT QUIT [facility] TOBACCO USE Aug 12, 2015 08:48 AM CURRENT SMOKER CAREY Yates [facility] Pathology Reports: +/- 30 days of [...] SURGICAL PATHOLOGY REPORT: STEFANY MILLER CARE[facility] DOYLE [facility] LOCAL TITLE: LR SURGICAL PATHOLOGY REPORT 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 Submitted entirely in 1 cassette [id number];.;Luz MEEK;.;405;[id number] 07/18/2021 Microscopic exam: DIAGNOSIS: A. Shave biopsy skin, left lateral forearm: Squamous cell carcinoma, transected The attending pathologist who signature mansoor ears on this report has reviewed all diagnostic slides and has edited t he gross and/or microscopic portion of this report in rendering the final pathologic diagnosis. [address] [address] CPT: [id number] /emely/ NIURKA Yeung MD Signed Jul 20, 2021@08:24 Performing Laboratory: Surgical Pathology Report Performed By: CAREY DOYLE [place] [facility] [CLIA# [id number]] [address] [place] [address] $FTR - - - - - [...] - - LUCAS MEEK STANDARD FORM 515 ID:[id number] SEX:M :1950 AGE: 71 LOC: [place] PCP: Ishmael Morfin /es/ NIURKA MILLER Staff Signed: 07/20/2021 08:24 Encounter Notes: All associated encounter notes This section contains the clinical notes associated to the Encounter. Date/Time Encounter Note(s) Provider Source Jul 18, 2021 10:46 RHEUMATOLOGY NOTE: BUNNY ZAVALETA [place] AM LOCAL TITLE: Rheumatology Note [facility] STANDARD TITLE: RHEUMATOLOGY NOTE DATE OF NOTE: JUL 18, 2021@10:46 ENTRY DATE: JUL 18, 2021@10:46:14 AUTHOR: BUNNY ZAVALETA EXP COSIGNER: DOE HOLMAN URGENCY: STATUS: COMPLETED Rheumatology Note Has ADDENDA Rheumatology Follow Up Note Primary Care Provider: ISHMAEL MORFIN [facility] Pact MD Consult Attending: Date: Jun Rheum Hx: #Psoriasis #Osteoarthritis - previously seen in our clinic October 2018, was di agnosed with PsO, questioned PsA, placed on MTX 12.5mg -> 15mg, but the presc ription ran out and with his concurrent lung cancer, further therapies were w itheld. - MTX helped skin more than joints - planned to add on HCQ but unsure if this was d one - reevaluated October 2020 for a rthralgias, large joint stiffness minimal in AM but pain worse with activity, no swelling, dactylitis, uveitis, or IBD symptoms, did not appear to be PsA - October 2020 xrays left hand mild diffuse MCP narr owing without erosions, +osteophytes with heberden/carola nodes, 1st I P subluxation, distal gurpreet preserved; right hand cystic changes with heberd en/carola, CPPD in TFCC and osteophytes, feet right large calcaneal spur and 1st MTP subluxation - swelling in knee right knee s/p TKA - started on tumeric supplements with PRN diclof enac gel #Chondrocalcinosis - On xrays, asymptomatic INTERVAL HX: - presents for 6 month follow up - overall he is stable, feels turmeric supplemen ts have really helped him - avoiding cold weather, has not felt this has w orsened his joints as of late - no swelling, tenderness of any joints - no dactylitis, uveitis, or IBD symptoms - psoriasis is pretty well controlled with clobe tasol shampoo, follows with dermatology - has foot pain when someone squeezes his toes, no AM pain or discomfort with walking, no swelling - no plantar fasciitis or achilles pain PMHx: Spinal stenosis of lumbar region (SCT 18Low back pain (SCT 915470043) Joint pain (SCT 26047302) Primary malignant neop lasm of lung (SCT 99118240) Morbid obesity (SCT 236928733) Benign essential hypertension (SCT 2947010) Chronic obstructive lung disease (SCT 13 Medications Active Outpatient Medications (excluding Supplie s): Active [...] TH EVERY ACTIVE DAY FOR BLOOD PRESSURE/HEART 9) [...] ACTIVE CAP/TAB BY MOUTH TWICE A DAY Pending Outpatient Medications Status 1) SALICYLIC ACID 40% PLASTER APPLY PLASTER TOPI ARI ON PENDING MONDAYS, WEDNESDAYS AND FRIDAYS 14 Total Medications Allergies: RADIOLOGICAL/CONTRAST MEDIA MAY 28, 2017 (observ ed) Symptoms: None listed LISINOPRIL NOV 30, 2016 (observed) Symptoms: LIP SWELLING Physical Exam: Vitals DATE/TIME TEMP PULSE RESP BP PAIN WEIGHT 07/18/21 @ 1003 97.9 104 18 117/80 282.3 General: Well appearing, NAD HEENT: Conjunctiva clear, MMM, EOMI CV: RRR, no murmurs or gallops Lungs: Decreased breath sounds throughout ABD: Soft, nontender Ext: no edema Skin: dry skin with few AKs UE b/l MSK: Hands: no synovitis or bony abnormalities, full fist and claw, no TTP Wrist: Almost full flexion/extension, no swellin g Elbows: FROM, no swelling Shoulders: FROM Knees: FROM, no effusions Ankles: FROM, no swelling Feet: No DIP/PIP/MCPs synovitis, +MTP compressio n tenderness. Labs: Reviewed LAB RESULTS LAST 24 HRS - NONE FOUND Assessment/Plan: Mr. Lucas Meek is a 71 year old male PMH pso riasis, lung cancer diagnosed 05/2018 s/p chemotherapy/radiation/derva lumab now in remission, diverituclitis s/p partial colonic resection, chronic back pain 2/2 injury s/p discteomy 30+ years ago, COPD, polio in ildhood, OA s/p right TKA 15 years ago who presents for evaluation of arthralgias in the setting of psoriasis. He presents after 6 months and reports d oing well on turmeric. Occasionally he will need diclofenac gel for worsening discomfort in certain joints but this is very rare. He denies inflammatory symptoms such as AM stiffness, dactylitis, enthesitis, uveitis, or IBD symptoms. Ps O is well controlled with topicals. On exam there is no synovitis. He has MTP compressi on tenderness with minimal palpation b/l which has been ongoing for years, but no synovitis, dactylitis, and no TTP and plantar and achilles tend on insertion sites. This also does not bother with either walking o r at rest, only when squeezed, so this could just be neuropathic pain. At this time, it does not appe ar he has psoriatic arthritis but discussed with patient what that would look like and possibility of developing in the future. For now we will contin ue to monitor with turmeric supplements alone. He would like to follow up with us in one year but will call sooner should any change in symptoms or question s arise. PLAN: - Continue turmeric supplements 500mg BID - PsO management per dermatology Follow up 1 year or sooner if needed. The patient was discussed with Dr. Holman. /emely/ BUNNY ZAVALETA Rheumatology Fellow Signed: 07/18/2021 11:01 /emely/ DOE HOLMAN Staff Down Filler Cosigned: 07/18/2021 11:41 07/18/2021 ADDENDUM STATUS: COMPLETED Fellow provided care today. Patient's history an d exam were discussed with me and I am in agreement with the assessment and pl an as written. /emely/ DOE HOLMAN Staff Down Filler Signed: 07/18/2021 11:41
--- OUTSIDE RECORDS SUMMARY | 2022-01-19 07:55 | XMS_ITS | Encounter Summary ---
:1950 Author Organization [facility] Address [address] [place] [id number] Support Name Relationship Address Phone YUSRA AUGUSTE Unavailable [address] [place] [address] YUSRA AUGUSTE Unavailable [address] [place] [facility] [place] [address] CLAY MOSLEY Unavailable Unavailable SJ SANTACRUZ Unavailable [...] MEDICARE MEDICARE PART Jun 18, PART B [id number] DO KALYANI PATIENT (WNR) (M) B 2016 13A 1 UGLAS MEDICARE MEDICARE PART Jun 18, PART A [id number] KALYANIDO PATIENT (WNR) (M) A 2017 VH81 2 LAS MEDICARE MEDICARE PART Jun 18, PART A [id number] KALYANI DO PATIENT (WNR) (M) A 2016 13A 1 UGLAS MEDICARE MEDICARE PART Jun 18, PART B [id number] AUGUSTE DO PATIENT (WNR) (M) B 2017 VH81 2 LAS UNITED MEDICARE MCR(Jun [id number] Luz AUGUSTE PATIENT HEALTHCARE ADVANTAGE NR) 2021 37 0 [facility] (WNR) Selected Encounter This section includes the information on record at ID for the Encounter. Date/Time Encounter Type Encounter Reason Provider Source Description November 15, 2021 OFFICE O/P EST PRIMARY ICD-10-CM K21.9 GEORGE DONIS 10:00 AM LOW 20-29 MIN CARE/MEDICINE Gastro-esophageal reflux disease without esophagitis with Provider Comments: Gastro-Esophageal Reflux Disease without Esophagitis IHE Encounter Template Text not used by ID Assessments - Encounter Diagnoses This section includes the primary and secondary diagnoses documented for the Encounter. Date/Time Primary/Secondary Diagnosis Name Provider Source Diagnosis Nov 16, 2021 PRIMARY Gastro-esophageal [facility] 08:19 PM reflux disease T,[facility] without esophagitis Nov 16, 2021 SECONDARY Encounter for GEORGE DONIS [facility] 08:19 PM immunization CLINIC Nov 16, 2021 SECONDARY Functional [facility] 08:19 PM dyspepsia T,[facility] Nov 16, 2021 SECONDARY Primary [facility] 08:19 PM osteoarthritis, T,[facility] unspecified site Nov 16, 2021 SECONDARY Spinal stenosis, [facility]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,[facility]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 Nov 16, 2021 SECONDARY 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,[facility]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, inc shoulder Plan of [...] Date/Time Appointment Type Appointment Facili ty Name Dec 01, 2021 10:30 AM AMBULATORY - NONE [facility] Dec 06, 2021 11:40 AM AMBULATORY - MEDICINE [facility] Dec 21, 2021 08:00 AM AMBULATORY - NONE [facility] Jan 06, 2022 02:00 PM AM[facility]ATORY [place] [facility] [place] [facility] Jan 10, 2022 11:30 AM AMBULATORY - MEDICINE [facility] Jan 24, 2022 08:00 AM [place] [facility] Feb 21, 2022 10:00 AM [place] [facility] [place] [facility] Mar 21, 2022 10:30 AM AMBULATORY - MEDICINE [facility] CL[facility] C Active, Pending, and Scheduled Orders This section includes a listing of several types of active, pending, and scheduled orders, including clinic medications orders, diagnostic test orders, procedure orders and consult orders; where the start date of the order is 45 days before the date of the Encounter or 45 days after the date of the Encounter. The data comes from all ID treatment facilities. Test Date/Time Test Type Test Details Facility Name October 31, 2021 07:37 AM Consult Order [facility] Cons Traffic Recorder's Choice November 15, 2021 10:37 AM Consult Order [facility] Cons Traffic Recorder's Choice Dec 06, 2021 12:52 PM [place]acy [place] [facility] Dec 06, 2021 03:24 PM [facility]acy - [place] [facility] Dec 06, 2021 03:40 PM [facility]acy [place] [facility] Dec 15, 2021 08:41 AM Consult Order [facility] PATHOLOG[facility] [place] OUT[place] Cons [facility] Traffic Recorder's Choice Lab Results: +/- 30 days of the [...] Result - Unit Interpretation Reference Range Comment Dec 15, 2021 [place] P4 GLU,BUN,CREAT,LYTES,CA Speci men Type: PLASMA 06:43 AM [facility] Comment: Tests performed on Zephyr 405 SN:[id number] Ordering Provid er: ISATU TODD Report Released Date/Time: Dec 11, 2021 07:42 AM Reporting Lab: [facility] [address] [facility] [address] Performing Lab: [facility] [address] [facility] [address] UREA NITROGEN 9 7-25 SODIUM 137 135-145 POTASSIUM 3.8 3.5-5.0 CHLORIDE 105 100-110 CARBON DIOXIDE 26 20-30 ANION GAP 6 4-16 GLUCOSE 102 H 65-100 CREATININE 0.64 0.5-1.5 CALCIUM 8.1 L 8.5-10.5 eGFR(CKD-EPI 2020) >90.0 >60 Dec 15, 2021 06:[address] [facility] CBC PROFILE Sp ecimen Type: BLOOD No comment enter ed. Ordering Provid er: ISATU TODD Report Released Date/Time: Dec 10, 2021 07:22 AM Reporting Lab: [facility] [address] [facility] [address] Performing Lab: [facility] [address] [facility] [address] WBC 5.7 4.5-11.0 RBC 4.22 L 4.23-5.66 HGB 10.8 L 12.8-17 HEMATOCRIT 35.0 L 39.2-50.4 MCV 82.9 82-99 MCH 25.6 L 26.2-32.6 MCHC 30.9 30.8-35.1 PLT 172 140-360 MPV 9.2 9.2-12.4 RDW 17.2 H 12.0-16.0 LYMPH % 13.6 L 14.0-42.3 MONO % 6.7 5.1-13.7 NEUT % 78.3 H 43.7-75.8 EOS % 0.5 0.4-6.8 BASO % 0.4 0.1-2.0 IG % 0.5 0.0-0.7 NUCLEATED RED CELLS 0.0 0.0-0.0 ABSOLUTE IG 0.0 0-0.06 ABSOLUTE BASOPHILS 0.0 L 0.01-0.13 ABSOLUTE EOS. 0.0 L 0.03-0.44 ABSOLUTE LYMPHOCYTES 0.8 L 1.0-3.2 ABSOLUTE MONOCYTES 0.4 0.3-1.1 ABSOLUTE GRANULOCYTES 4.4 2.2-7.6 ABSOLUTE NRBC 0.00 0-0 Dec 14, 2021 [facility] CYTOGENETIC Specimen Type: ESOPHAGUS 02:59 PM [facility] FISH([facility] Comment: ~For T est: CYTOGENETIC FISH([facility]) ~FISH HER 2 NUE, FFPE See full report in [email or web address] Image display [email or web address]#LAB-Reference Ordering Provid er: NIURKA MILLER Report Released Date/Time: Dec 21, 2021 12:11 PM Reporting Lab: [place] [facility] [address] [facility] [address] Performing Lab: [place] [facility] [place] CYTOGENETIC FISH([facility]) comment Dec 14, 2021 [place] P4 GLU,BUN,CREAT,LYTES,CA Speci men Type: PLASMA 06:27 AM [facility] Comment: Tests performed on Zephyr (405) SN:[id number] Ordering Provid er: ISATU TODD Report Released Date/Time: Dec 11, 2021 07:42 AM Reporting Lab: [place] [facility] [address] [facility] [address] Performing Lab: [place] [facility] [address] [facility] [address] UREA NITROGEN 10 7-25 SODIUM 137 135-145 POTASSIUM 4.0 3.5-5.0 CHLORIDE 104 100-110 CARBON DIOXIDE 25 20-30 ANION GAP 8 4-16 GLUCOSE 99 65-100 CREATININE 0.67 0.5-1.5 CALCIUM 8.2 L 8.5-10.5 eGFR(CKD-EPI 2020) >90.0 >60 Dec 14, 2021 06:27 AM [place] [facility] CBC PROFILE Sp ecimen Type: BLOOD No comment enter ed. Ordering Provid er: ISATU TODD Report Released Date/Time: Dec 10, 2021 07:22 AM Reporting Lab: [place] [facility] [address] [facility] [address] Performing Lab: [place] [facility] [address] [facility] [address] WBC 6.0 4.5-11.0 RBC 4.29 4.23-5.66 HGB 11.2 L 12.8-17 HEMATOCRIT 35.7 L 39.2-50.4 MCV 83.2 82-99 MCH 26.1 L 26.2-32.6 MCHC 31.4 30.8-35.1 PLT 168 140-360 MPV 8.8 L 9.2-12.4 RDW 17.3 H 12.0-16.0 LYMPH % 14.4 14.0-42.3 MONO % 6.0 5.1-13.7 NEUT % 78.3 H 43.7-75.8 EOS % 0.2 L 0.4-6.8 BASO % 0.3 0.1-2.0 IG % 0.8 H 0.0-0.7 NUCLEATED RED CELLS 0.0 0.0-0.0 ABSOLUTE IG 0.1 H 0-0.06 ABSOLUTE BASOPHILS 0.0 L 0.01-0.13 ABSOLUTE EOS. 0.0 L 0.03-0.44 ABSOLUTE LYMPHOCYTES 0.9 L 1.0-3.2 ABSOLUTE MONOCYTES 0.4 0.3-1.1 ABSOLUTE GRANULOCYTES 4.7 2.2-7.6 ABSOLUTE NRBC 0.00 0-0 Dec 13, 2021 06:[address] [facility] CBC PROFILE Sp ecimen Type: BLOOD No comment enter ed. Ordering Provid er: ISATU TODD Report Released Date/Time: Dec 10, 2021 07:22 AM Reporting Lab: [facility] [address] [facility] [address] Performing Lab: [facility] [address] [facility] [address] WBC 5.6 4.5-11.0 RBC 4.28 4.23-5.66 HGB 11.0 L 12.8-17 HEMATOCRIT 35.4 L 39.2-50.4 MCV 82.7 82-99 MCH 25.7 L 26.2-32.6 MCHC 31.1 30.8-35.1 PLT 165 140-360 MPV 9.5 9.2-12.4 RDW 17.2 H 12.0-16.0 LYMPH % 13.1 L 14.0-42.3 MONO % 6.9 5.1-13.7 NEUT % 78.7 H 43.7-75.8 EOS % 0.5 0.4-6.8 BASO % 0.4 0.1-2.0 IG % 0.4 0.0-0.7 NUCLEATED RED CELLS 0.0 0.0-0.0 ABSOLUTE IG 0.0 0-0.06 ABSOLUTE BASOPHILS 0.0 L 0.01-0.13 ABSOLUTE EOS. 0.0 L 0.03-0.44 ABSOLUTE LYMPHOCYTES 0.7 L 1.0-3.2 ABSOLUTE MONOCYTES 0.4 0.3-1.1 ABSOLUTE GRANULOCYTES 4.4 2.2-7.6 ABSOLUTE NRBC 0.00 0-0 Dec 13, 2021 [facility] GLU,BUN,CREAT,LYTES,CA Speci men Type: PLASMA 06:34 AM [facility] Comment: Tests performed on Zephyr (405) SN:[id number] Ordering Provid er: ISATU TODD Report Released Date/Time: Dec 11, 2021 07:42 AM Reporting Lab: [facility] [address] [facility] [address] Performing Lab: [facility] [address] [facility] [address] UREA NITROGEN 12 7-25 SODIUM 136 135-145 POTASSIUM 3.9 3.5-5.0 CHLORIDE 105 100-110 CARBON DIOXIDE 24 20-30 ANION GAP 7 4-16 GLUCOSE 102 H 65-100 CREATININE 0.66 0.5-1.5 CALCIUM 8.3 L 8.5-10.5 eGFR(CKD-EPI 2020) >90.0 >60 Dec 12, 2021 [facility] GLU,BUN,CREAT,LYTES,CA Speci men Type: PLASMA 06:21 AM [facility] Comment: Tests performed on Zephyr (405) SN:[id number] Ordering Provid er: ISATU TODD Report Released Date/Time: Dec 11, 2021 07:42 AM Reporting Lab: [facility] [address] [facility] [address] Performing Lab: [facility] [address] [facility] [address] UREA NITROGEN 11 7-25 SODIUM 139 135-145 POTASSIUM 4.1 3.5-5.0 CHLORIDE 107 100-110 CARBON DIOXIDE 24 20-30 ANION GAP 8 4-16 GLUCOSE 110 H 65-100 CREATININE 0.70 0.5-1.5 CALCIUM 8.3 L 8.5-10.5 eGFR(CKD-EPI 2020) >90.0 >60 Dec 12, 2021 06:21 AM [facility] CBC PROFILE Sp ecimen Type: BLOOD No comment enter ed. Ordering Provid er: ISATU TODD Report Released Date/Time: Dec 10, 2021 07:22 AM Reporting Lab: [facility] [address] [facility] [address] Performing Lab[facility] [address] [facility] [address] WBC 5.5 4.5-11.0 RBC 4.37 4.23-5.66 HGB 11.1 L 12.8-17 HEMATOCRIT 36.4 L 39.2-50.4 MCV 83.3 82-99 MCH 25.4 L 26.2-32.6 MCHC 30.5 L 30.8-35.1 PLT 165 140-360 MPV 9.0 L 9.2-12.4 RDW 17.0 H 12.0-16.0 LYMPH % 12.2 L 14.0-42.3 MONO % 7.5 5.1-13.7 NEUT % 78.9 H 43.7-75.8 EOS % 0.7 0.4-6.8 BASO % 0.2 0.1-2.0 IG % 0.5 0.0-0.7 NUCLEATED RED CELLS 0.0 0.0-0.0 ABSOLUTE IG 0.0 0-0.06 ABSOLUTE BASOPHILS 0.0 L 0.01-0.13 ABSOLUTE EOS. 0.0 L 0.03-0.44 ABSOLUTE LYMPHOCYTES 0.7 L 1.0-3.2 ABSOLUTE MONOCYTES 0.4 0.3-1.1 ABSOLUTE GRANULOCYTES 4.3 2.2-7.6 ABSOLUTE NRBC 0.00 0-0 Dec 12, 2021 06:00 AM [facility] MAGNESIUM Sp ecimen Type: PLASMA Comment: Testin g Performed on Zephyr 405 SN:[id number] Ordering Provid er: ISATU TODD Report Released Date/Time: Dec 12, 2021 08:24 AM Reporting Lab: [facility] [address] [facility] [address] Performing Lab: [facility] [address] [facility] [address] MAGNESIUM 1.8 1.6-2.6 Dec 12, 2021 06:00 AM [facility] PHOSPHORUS Sp ecimen Type: PLASMA Comment: Testin g Performed on Pham Aerial Sprayer (405) SN:[id number] Ordering Provid er: ISATU TODD Report Released Date/Time: Dec 12, 2021 08:24 AM Reporting Lab: [facility] [address] [facility] [address] Performing Lab: [facility] [address] [facility] [address] PHOSPHORUS 3.1 2.5-5.0 Dec 11, 2021 06:15 AM [facility] ELECTROLYTES Sp ecimen Type: PLASMA Comment: Tests performed on Pham Aerial Sprayer (405) SN:[id number] Ordering Provid er: ISATU TODD Report Released Date/Time: Dec 10, 2021 07:22 AM Reporting Lab: [facility] [address] [facility] [address] Performing Lab: [facility] [address] [facility] [address] SODIUM 137 135-145 POTASSIUM 4.3 3.5-5.0 CHLORIDE 108 100-110 CARBON DIOXIDE 20 20-30 ANION GAP 9 4-16 Dec 11, 2021 06:15 AM [facility] CBC PROFILE Sp ecimen Type: BLOOD Comment: Result s checked Ordering Provid er: ISATU TODD Report Released Date/Time: Dec 10, 2021 07:22 AM Reporting Lab: [facility] [address] [facility] [address] Performing Lab: [facility] [address] [facility] [address] WBC 5.8 4.5-11.0 RBC 4.37 4.23-5.66 HGB 11.2 L 12.8-17 HEMATOCRIT 37.7 L 39.2-50.4 MCV 86.3 82-99 MCH 25.6 L 26.2-32.6 MCHC 29.7 L 30.8-35.1 PLT 149 140-360 MPV 9.1 L 9.2-12.4 RDW 17.2 H 12.0-16.0 LYMPH % 15.5 14.0-42.3 MONO % 7.7 5.1-13.7 NEUT % 74.8 43.7-75.8 EOS % 1.0 0.4-6.8 BASO % 0.3 0.1-2.0 IG % 0.7 0.0-0.7 NUCLEATED RED CELLS 0.0 0.0-0.0 ABSOLUTE IG 0.0 0-0.06 ABSOLUTE BASOPHILS 0.0 L 0.01-0.13 ABSOLUTE EOS. 0.1 0.03-0.44 ABSOLUTE LYMPHOCYTES 0.9 L 1.0-3.2 ABSOLUTE MONOCYTES 0.5 0.3-1.1 ABSOLUTE GRANULOCYTES 4.3 2.2-7.6 ABSOLUTE NRBC 0.00 0-0 Dec 11, 2021 06:00 AM [place] [facility] PHOSPHORUS Sp ecimen Type: PLASMA Comment: Tests performed on Zephyr (405) SN:[id number] Results checked Ordering Provid er: ISATU TODD Report Released Date/Time: Dec 11, 2021 07:44 AM Reporting Lab: [place] [facility] [address] [facility] [address] Performing Lab: [place] [facility] [address] [facility] [address] PHOSPHORUS 3.0 2.5-5.0 Dec 10, 2021 08:05 AM [place] [facility] MAGNESIUM Sp ecimen Type: PLASMA Comment: Added by Ligia on Dec 10, 2021@08:31 Tests performed on Zephyr (405) SN:[id number] Ordering Provid er: ISATU TODD Report Released Date/Time: Dec 10, 2021 07:22 AM Reporting Lab: [place] [facility] [address] [facility] [address] Performing Lab: [place] [facility] [address] [facility] [address] MAGNESIUM 1.7 1.6-2.6 Dec 10, 2021 08:05 AM [place] [facility] PHOSPHORUS Sp ecimen Type: PLASMA Comment: Added by Ligia on Dec 10, 2021@08:31 Tests performed on Zephyr (405) SN:[id number] Ordering Provid er: ISATU TODD Report Released Date/Time: Dec 10, 2021 07:22 AM Reporting Lab: [place] [facility] [address] [place] [address] Performing Lab: [place] [facility] [address] [facility] [place] [address] PHOSPHORUS 1.8 L 2.5-5.0 Dec 10, 2021 08:05 AM [place] UREA NITROGEN Specimen Type: PLASMA [facility] Comment: [place] [id number] on Dec 10, 2021@08:31 Tests performed on Zephyr (405) SN:[id number] Ordering Provid er: ISATU TODD Report Released Date/Time: Dec 10, 2021 07:22 AM Reporting Lab: [place] [facility] [address] [facility] [place] [address] Performing Lab: [place] [facility] [address] [facility] [address] UREA NITROGEN 8 7-25 Dec 10, 2021 08:05 AM [place] [facility] GLUCOSE Sp ecimen Type: PLASMA Comment: [place] [id number] on Dec 10, 2021@08:31 Tests performed on Zephyr (405) SN:[id number] Ordering Provid er: ISATU TODD Report Released Date/Time: Dec 10, 2021 07:22 AM Reporting Lab: [place] [facility] [address] [facility] [place] [address] Performing Lab: [place] [facility] [address] [facility] [place] [address] GLUCOSE 144 H 65-100 Dec 10, 2021 08:05 AM [place] [facility] CALCIUM Sp ecimen Type: PLASMA Comment: [place] [id number] on Dec 10, 2021@08:31 Tests performed on Zephyr (405) SN:[id number] Ordering Provid er: ISATU TODD Report Released Date/Time: Dec 10, 2021 07:22 AM Reporting Lab: [place] [facility] [address] [facility] [place] [address] Performing Lab: [place] [facility] [address] [facility] [address] CALCIUM 8.3 L 8.5-10.5 Dec 10, 2021 08:05 AM [place] [facility] ELECTROLYTES Sp ecimen Type: PLASMA Comment: [place] [id number] on Dec 10, 2021@08:31 Tests performed on Zephyr (405) SN:[id number] Ordering Provid er: ISATU TODD Report Released Date/Time: Dec 10, 2021 07:22 AM Reporting [facility] [address] [facility] [address] [facility] [address] [facility] [address] SODIUM 139 135-145 POTASSIUM 3.7 3.5-5.0 CHLORIDE 107 100-110 CARBON DIOXIDE 24 20-30 ANION GAP 8 4-16 Dec 10, 2021 08:[address] [facility] CBC PROFILE Sp ecimen Type: BLOOD No comment enter ed. Ordering Provid er: ISATU TODD Report Released Date/Time: Dec 10, 2021 07:22 AM Reporting Lab: [facility] [address] [facility] [address] Performing Lab[facility] [address] [facility] [address] WBC 7.0 4.5-11.0 RBC 4.54 4.23-5.66 HGB 11.6 L 12.8-17 HEMATOCRIT 37.5 L 39.2-50.4 MCV 82.6 82-99 MCH 25.6 L 26.2-32.6 MCHC 30.9 30.8-35.1 PLT 164 140-360 MPV 9.2 9.2-12.4 RDW 16.8 H 12.0-16.0 LYMPH % 4.7 L 14.0-42.3 MONO % 4.3 L 5.1-13.7 NEUT % 89.5 H 43.7-75.8 EOS % 0.7 0.4-6.8 BASO % 0.1 0.1-2.0 IG % 0.7 0.0-0.7 NUCLEATED RED CELLS 0.0 0.0-0.0 ABSOLUTE IG 0.1 H 0-0.06 ABSOLUTE BASOPHILS 0.0 L 0.01-0.13 ABSOLUTE EOS. 0.1 0.03-0.44 ABSOLUTE LYMPHOCYTES 0.3 L 1.0-3.2 ABSOLUTE MONOCYTES 0.3 0.3-1.1 ABSOLUTE GRANULOCYTES 6.2 2.2-7.6 ABSOLUTE NRBC 0.00 0-0 Dec 10, 2021 08:05 [place] CREATININE WITH eGFR Specime n Type: PLASMA AM [facility] PANEL [place]: [place] [id number] on Dec 10, 2021@08:31 Tests performed on Zephyr (405) SN:[id number] Ordering Provid er: ISATU TODD Report Released Date/Time: Dec 10, 2021 07:22 AM Reporting Lab: [place] [facility] [address] [facility] [address] Performing Lab: [place] [facility] [address] [facility] [address] CREATININE 0.78 0.5-1.5 eGFR(CKD-EPI 2020) >90.0 >60 Dec 09, 2021 06:46 AM [place] [facility] MAGNESIUM Sp ecimen Type: PLASMA Comment: Tests performed on Zephyr (405) SN:[id number] Ordering Provid er: ISATU TODD Report Released Date/Time: Dec 08, 2021 10:23 AM Reporting Lab: [facility] [address] [facility] [address] Performing Lab: [facility] [address] [facility] [address] MAGNESIUM 1.6 1.6-2.6 Dec 09, 2021 [place] P4 GLU,BUN,CREAT,LYTES,CA Speci men Type: PLASMA 06:46 AM [facility] Comment: Tests performed on Zephyr (405) SN:[id number] Ordering Provid er: ISATU TODD Report Released Date/Time: Dec 08, 2021 05:00 PM Reporting Lab: [place] [facility] [address] [facility] [address] Performing Lab: [place] [facility] [address] [facility] [address] UREA NITROGEN 6 L 7-25 SODIUM 134 L 135-145 POTASSIUM 3.7 3.5-5.0 CHLORIDE 103 100-110 CARBON DIOXIDE 23 20-30 ANION GAP 8 4-16 GLUCOSE 112 H 65-100 CREATININE 0.70 0.5-1.5 CALCIUM 8.1 L 8.5-10.5 eGFR(CKD-EPI 2020) >90.0 >60 Dec 09, 2021 06:46 AM [place] [facility] CBC PROFILE Sp ecimen Type: BLOOD No comment enter ed. Ordering Provid er: ISATU TODD Report Released Date/Time: Dec 08, 2021 05:00 PM Reporting Lab: [facility] [address] [facility] [address] Performing Lab: [place] [facility] [address] [facility] [address] WBC 7.1 4.5-11.0 RBC 4.40 4.23-5.66 HGB 11.3 L 12.8-17 HEMATOCRIT 35.8 L 39.2-50.4 MCV 81.4 L 82-99 MCH 25.7 L 26.2-32.6 MCHC 31.6 30.8-35.1 PLT 158 140-360 MPV 8.8 L 9.2-12.4 RDW 16.4 H 12.0-16.0 LYMPH % 6.9 L 14.0-42.3 MONO % 5.1 5.1-13.7 NEUT % 86.0 H 43.7-75.8 EOS % 0.7 0.4-6.8 BASO % 0.3 0.1-2.0 IG % 1.0 H 0.0-0.7 NUCLEATED RED CELLS 0.0 0.0-0.0 ABSOLUTE IG 0.1 H 0-0.06 ABSOLUTE BASOPHILS 0.0 L 0.01-0.13 ABSOLUTE EOS. 0.1 0.03-0.44 ABSOLUTE LYMPHOCYTES 0.5 L 1.0-3.2 ABSOLUTE MONOCYTES 0.4 0.3-1.1 ABSOLUTE GRANULOCYTES 6.1 2.2-7.6 ABSOLUTE NRBC 0.00 0-0 Dec 08, 2021 06:39 AM [facility] Sp ecimen Type: PLASMA Comment: Testin g Performed on Zephyr 405) SN:[id number] Ordering Provid er: ISATU TODD Report Released Date/Time: Dec 07, 2021 10:32 AM Reporting Lab: [facility] [address] [facility] [address] Performing Lab: [facility] [address] [facility] [address] MAGNESIUM 1.5 L 1.6-2.6 Dec 08, 2021 06:39 AM [facility] CBC PROFILE Sp ecimen Type: BLOOD No comment enter ed. Ordering Provid er: ISATU TODD Report Released Date/Time: Dec 07, 2021 10:32 AM Reporting Lab: [facility] [address] [facility] [address] Performing Lab: [facility] [address] [facility] [address] WBC 8.4 4.5-11.0 RBC 4.75 4.23-5.66 HGB 12.1 L 12.8-17 HEMATOCRIT 38.2 L 39.2-50.4 MCV 80.4 L 82-99 MCH 25.5 L 26.2-32.6 MCHC 31.7 30.8-35.1 PLT 185 140-360 MPV 9.2 9.2-12.4 RDW 16.4 H 12.0-16.0 LYMPH % 5.7 L 14.0-42.3 MONO % 3.9 L 5.1-13.7 NEUT % 89.4 H 43.7-75.8 EOS % 0.2 L 0.4-6.8 BASO % 0.2 0.1-2.0 IG % 0.6 0.0-0.7 NUCLEATED RED CELLS 0.0 0.0-0.0 ABSOLUTE IG 0.1 H 0-0.06 ABSOLUTE BASOPHILS 0.0 L 0.01-0.13 ABSOLUTE EOS. 0.0 L 0.03-0.44 ABSOLUTE LYMPHOCYTES 0.5 L 1.0-3.2 ABSOLUTE MONOCYTES 0.3 0.3-1.1 ABSOLUTE GRANULOCYTES 7.5 2.2-7.6 ABSOLUTE NRBC 0.00 0-0 Dec 08, 2021 [place] P4 GLU,BUN,CREAT,LYTES,CA Speci men Type: PLASMA 06:39 AM [facility] Comment: Testin g Performed on Zephyr (405) SN:[id number] Ordering Provid er: ISATU TODD Report Released Date/Time: Dec 07, 2021 10:32 AM Reporting Lab: [facility] [address] [facility] [address] Performing [facility]: [facility] [address] [facility] [address] UREA NITROGEN 6 L 7-25 SODIUM 136 135-145 POTASSIUM 3.3 L 3.5-5.0 CHLORIDE 104 100-110 CARBON DIOXIDE 22 20-30 ANION GAP 10 4-16 GLUCOSE 133 H 65-100 CREATININE 0.76 0.5-1.5 CALCIUM 8.4 L 8.5-10.5 eGFR(CKD-EPI 2020) >90.0 >60 Dec 07, 2021 [facility] GLU,BUN,CREAT,LYTES,CA Speci men Type: PLASMA 06:42 AM [facility] Comment: Tests performed on Pham Aerial Sprayer (405) SN:[id number] Ordering Provid er: PORFIRIO WALTERS Report Released Date/Time: Dec 06, 2021 06:57 PM Reporting Lab: [facility] [address] [facility] [address] Performing Lab: [place] [facility] [address] [facility] [address] UREA NITROGEN 9 7-25 SODIUM 135 135-145 POTASSIUM 3.5 3.5-5.0 CHLORIDE 103 100-110 CARBON DIOXIDE 22 20-30 ANION GAP 10 4-16 GLUCOSE 92 65-100 CREATININE 0.73 0.5-1.5 CALCIUM 8.0 L 8.5-10.5 eGFR(CKD-EPI 2020) >90.0 >60 Dec 07, 2021 06:42 [place] LIVER PROFILE Specimen Typ e: PLASMA AM [facility] Comment: Tests performed on Pham Aerial Sprayer (405) SN:[id number] Ordering Provid er: PORFIRIO WALTERS Report Released Date/Time: Dec 06, 2021 06:57 PM Reporting Lab: [place] [facility] [address] [facility] [address] Performing Lab: [facility] [address] [facility] [address] PROTEIN, TOTAL 5.7 L 6.0-8.5 ALBUMIN 2.4 L 3.2-5.0 BILIRUBIN, TOTAL 0.4 0.2-1.2 ALKALINE PHOSPHATASE 109 40-150 ALT(SGPT) 10 7-52 AST(SGOT) 15 5-34 FIB-4 SCORE 1.92 <2.67 Dec 07, 2021 06:42 AM [place] CBC PROFILE Specimen Type: BLOOD [facility] No comment enter ed. Ordering Provid er: PORFIRIO WALTERS Report Released Date/Time: Dec 06, 2021 06:57 PM Reporting Lab: [facility] [address] [facility] [address] Performing Lab: [facility] [address] [facility] [address] WBC 5.7 4.5-11.0 RBC 4.15 L 4.23-5.66 HGB 10.7 L 12.8-17 HEMATOCRIT 33.3 L 39.2-50.4 MCV 80.2 L 82-99 MCH 25.8 L 26.2-32.6 MCHC 32.1 30.8-35.1 PLT 173 140-360 MPV 9.0 L 9.2-12.4 RDW 16.4 H 12.0-16.0 LYMPH % 12.7 L 14.0-42.3 MONO % 7.0 5.1-13.7 NEUT % 78.3 H 43.7-75.8 EOS % 0.4 0.4-6.8 BASO % 0.4 0.1-2.0 IG % 1.2 H 0.0-0.7 NUCLEATED RED CELLS 0.0 0.0-0.0 ABSOLUTE IG 0.1 H 0-0.06 ABSOLUTE BASOPHILS 0.0 L 0.01-0.13 ABSOLUTE EOS. 0.0 L 0.03-0.44 ABSOLUTE LYMPHOCYTES 0.7 L 1.0-3.2 ABSOLUTE MONOCYTES 0.4 0.3-1.1 ABSOLUTE GRANULOCYTES 4.5 2.2-7.6 ABSOLUTE NRBC 0.00 0-0 Dec 07, 2021 [facility] RETICULOCYTE CT (ABS & Specimen Type: BLOOD 06:00 AM [facility] %) AUTOMATED Comment: Tests performed on Zephyr (405) SN:[id number] Ordering Provid er: ISATU TODD Report Released Date/Time: Dec 07, 2021 10:28 AM Reporting Lab: [facility] [address] [facility] [address] Performing Lab: [facility] [address] [facility] [address] RETICULOCYTES (%) AUTOMATED 1.23 0. 6-2.0 RETICULOCYTES (ABS) AUTOMATED 0.052 0.030-0.090 Dec 06, 2021 09:45 [facility] MRSA SURVL NARES Specimen Ty pe: NARES PM [facility] DNA No comment enter ed. Ordering Provid er: ALVARO VARGHESE Report Released Date/Time: Dec 07, 2021 02:20 AM Reporting Lab: [facility] [address] [facility] [address] Performing Lab: [facility] [address] [facility] [address] MRSA SURVL NARES DNA NEGATIVE NEGATIVE Dec 06, 2021 06:00 [facility] URINALYSIS W/REFLEX TO Speci men Type: URINE PM [facility] CULTURE No comment enter ed. Ordering Provid er: JELANI SÁNCHEZ Report Released Date/Time: Dec 06, 2021 11:57 AM Reporting Lab: [facility] [address] [facility] [address] Performing Lab: [facility] [address] [facility] [address] URINE COLOR Arlin YELLOW SPECIFIC GRAVITY 1.029 1.003-1.030 UROBILINOGEN <2.0 <2.0 URINE BILIRUBIN NEG NEG URINE KETONES 5 NEG URINE GLUCOSE NEG NEG PROTEIN, URINE 30 NEG URINE PH 5.0 5-8 WHITE BLOOD CELL/URINE 3 0-5 MUCOUS/URINE MANY <MANY HYALINE CAST 5 H 0-2 RED BLOOD CELL/URINE <1 0-3 CLARITY HAZY Clear URINE BLOOD NEG NEG NITRITE, URINE NEG NEG WBC SCREEN NEG NEG [facility] SARS-COV-2 Specimen Type: NASOPHARYNX VARIANT Comment: https://www.cdc.gov/coronavirus/2019-ncov/cases-updates/variant- surveillance/variant-info.html The Kigo AmpliSeq SARS CoV 2 Insight Research Assay-GX is a next-generation sequencing (NGS) assa 2021 [facility] SEQUENCING y that determine s the complete genome sequence of the SARS-CoV-2 virus. The assay contains variant-tolerant primers to broaden and improve the coverage for variant detection and increase the sensitivity 12:00 [facility] PNL(WH) of the panel to enable detection from lower viral titer samples. The assay is run on the Incanthera Sequencer, which performs automated library preparation, sequencing, analysis, and reporting. PM The sequence an alysis includes determination of viral phylogenetic lineage by comparison to the reference strain Wu[place]-Hu-1, GenBank: [id number]. Sequence determination may not be possible owing to inade quate quantity o r quality of the viral RNA in the original specimen. Sequencing will not be attempted if the SARS-CoV-2 PCR assay result has a Ct > 30. Note that phylogenetic lineage assignment in so me cases may pauly nge over time for the same sequence as the virus continues to evolve and new sub lineages are created. The reported result will reflect the lineage assignment only at the time of initial sequence determ ination. This test was developed, and its performance characteristics determined by the [facility] Molecular Diagnostics Laboratory, which is certified under the Clinical Laboratory Improveme nt Amendments (C MARCO) as qualified to perform high complexity clinical laboratory testing. This test is validated for clinical use at [facility] and should not be regarded as investigational or for research. The FDA does not require this test to go through premarket FDA review, and therefore it has not been cleared or approved by the FDA. This report was reviewed and approved by the on-service pathologist. Ordering Provid er: JELANI SÁNCHEZ Report Released Date/Time: Dec 06, 2021 01:13 PM Reporting Lab: [facility] [address] [facility] [address] Performing Lab: [facility] [address] [facility] [address] SARS-CoV-2 CLADE() 22C (OMICRON) SARS-CoV-2 LINEAGE() BA.2.12.1 Dec 06, 2021 12:00 [facility] COVID-19 AG SCREEN Specimen Type: NASAL CAVITY PM [facility] PANEL BINAX(405) Comment: Testi ng Performed By: Mike Briscoe Ordering Provid er: JELANI SÁNCHEZ Report Released Date/Time: Dec 08, 2021 08:23 AM Reporting Lab: [facility] [address] [facility] [address] Performing Lab: [facility] [address] [facility] [address] COVID-19 AG SCRN(j BINAX) POSITIVE HH NE G Dec 06, 2021 12:00 PM [facility] TROPONIN II Sp ecimen Type: PLASMA Comment: Tests performed on Pham Aerial Sprayer (405) SN:[id number] Ordering Provid er: JELANI SÁNCHEZ Report Released Date/Time: Dec 06, 2021 11:57 AM Reporting Lab: [facility] [address] [facility] [address] Performing Lab: [facility] [address] [facility] [address] TROPONIN II 0.03 0.00-0.29 Dec 06, 2021 [facility] P4 GLU,BUN,CREAT,LYTES,CA Speci men Type: PLASMA 12:00 PM [facility] Comment: Testin g Performed on Pham MDVIP (405) SN:[id number] Ordering Provid er: JELANI SÁNCHEZ Report Released Date/Time: Dec 06, 2021 11:57 AM Reporting Lab: [facility] [address] [facility] [address] Performing Lab: [facility] [address] [facility] [address] UREA NITROGEN 13 7-25 SODIUM 138 135-145 POTASSIUM 3.8 3.5-5.0 CHLORIDE 103 100-110 CARBON DIOXIDE 23 20-30 ANION GAP 12 4-16 GLUCOSE 105 H 65-100 CREATININE 0.90 0.5-1.5 CALCIUM 8.7 8.5-10.5 eGFR(CKD-EPI 2020) >90.0 >60 Dec 06, 2021 12:00 PM [facility] LIVER PROFILE Sp ecimen Type: PLASMA Comment: Testin g Performed on Pham Aerial Sprayer (405) SN:[id number] Ordering Provid er: JELANI SÁNCHEZ Report Released Date/Time: Dec 06, 2021 11:57 AM Reporting Lab: [facility] [address] [facility] [address] Performing Lab: [facility] [address] [facility] [address] PROTEIN, TOTAL 6.6 6.0-8.5 ALBUMIN 2.8 L 3.2-5.0 BILIRUBIN, TOTAL 0.6 0.2-1.2 ALKALINE PHOSPHATASE 134 40-150 ALT(SGPT) 13 7-52 AST(SGOT) 18 5-34 FIB-4 SCORE 1.94 <2.67 Dec 06, 2021 [place] COVID-19+FLU/RSV DIAGNOSTIC Spe cimen Type: NASOPHARYNX 12:00 PM [facility] PANEL(405) Comment: Tests performed on PayPal Genexpert (405) Critical results called to and read back by: ALESHIA WILKINSON RN 12/06/21 @ 1312 Ordering Provid er: JELANI SÁNCHEZ Report Released Date/Time: Dec 06, 2021 11:57 AM Reporting Lab: [place] [facility] [address] [facility] [address] Performing Lab: [place] [facility] [address] [facility] [address] FLU A(PCR) NEGATIVE NEGATIVE FLU B(PCR) NEGATIVE NEGATIVE RSV(PCR) NEGATIVE NEGATIVE COVID-19([id number]) DETECTED HH NO T DETECTED Dec 06, 2021 12:00 PM [place] [facility] BNP(P) Sp ecimen Type: PLASMA Comment: Tests performed on Pham Aerial Sprayer (405) SN:[id number] Ordering Provid er: JELANI SÁNCHEZ Report Released Date/Time: Dec 06, 2021 11:57 AM Reporting Lab: [place] [facility] [address] [facility] [address] Performing Lab: [facility] [address] [facility] [address] BNP(P) 224.8 H 10-100 Dec 06, 2021 12:00 PM [place] [facility] CBC PROFILE Sp ecimen Type: BLOOD No comment enter ed. Ordering Provid er: JELANI SÁNCHEZ Report Released Date/Time: Dec 06, 2021 11:57 AM Reporting Lab: [place] [facility] [address] [facility] [place] [address] Performing Lab: [place] [facility] [address] [facility] [address] WBC 7.2 4.5-11.0 RBC 4.86 4.23-5.66 HGB 12.4 L 12.8-17 HEMATOCRIT 39.6 39.2-50.4 MCV 81.5 L 82-99 MCH 25.5 L 26.2-32.6 MCHC 31.3 30.8-35.1 PLT 180 140-360 MPV 9.1 L 9.2-12.4 RDW 16.2 H 12.0-16.0 LYMPH % 9.7 L 14.0-42.3 MONO % 7.0 5.1-13.7 NEUT % 82.1 H 43.7-75.8 EOS % 0.1 L 0.4-6.8 BASO % 0.3 0.1-2.0 IG % 0.8 H 0.0-0.7 NUCLEATED RED CELLS 0.0 0.0-0.0 ABSOLUTE IG 0.1 H 0-0.06 ABSOLUTE BASOPHILS 0.0 L 0.01-0.13 ABSOLUTE EOS. 0.0 L 0.03-0.44 ABSOLUTE LYMPHOCYTES 0.7 L 1.0-3.2 ABSOLUTE MONOCYTES 0.5 0.3-1.1 ABSOLUTE GRANULOCYTES 5.9 2.2-7.6 ABSOLUTE NRBC 0.00 0-0 Vital Signs: All taken on the encounter date This section contains inpatient and outpatient Vital Signs collected on the date of the Encounter. Date/Time Temperature Pulse Blood Respiratory SP02 Pain Height Weight Amilcar dy Source Pressure Rate Mass Index November 15, 99.5 F 111 133/71 96 % [place] 2021 10:27 /min mm[Hg] [facility] Immunizations: All administered on the encounter date This section contains immunizations associated to the Encounter. Immunization Series Date Issued Reaction Comments ZOSTER RECOMBINANT 2 November 15, 2021 Social History: Smoking Status (Most current) and Tobacco Use (All prior to encounter date) This section includes the most current, and the historical, smoking and tobacco-related health factors from the ID facility where the Encounter took place.Current Smoking Status This section includes the most current smoking, or tobacco-related health factor, from the ID facility where the Encounter took place. Date/Time Current Smoking Status Comment Facility Jun 29, 2017 07:18 AM QUIT TOBACCO USE 1-7 YEARS AGO [facility] quit mar 2016 Tobacco Use History This section includes a history of the smoking, or tobacco- related health factors, that were collected on or before the date of the Encounter. The data comes from the ID facility where the Encounter took place. Date/Time Smoking Status/Tobacco Use Comment [facility] Nov 21, 2016 08:42 AM QUIT TOBACCO USE 1-7 YEARS AGO [facility] apr 17 1916 Radiology Reports: +/- 30 days of the encounter Radiology Reports For cases when an order for radiology services may have been completed prior to the date of the Encounter, the report list includes the Radiology Reports that were completed up to 30 days before date of the Encounter. For cases when an order for radiology services may have been completed after the date of the Encounter, the report list also includes the Radiology Reports that were completed up to 30days after date of the Encounter. The data comes from all ID treatment facilities. Date/Time Radiology Report Provider Source Dec 13, 2021 12:57 PM MRI ABDOMEN W/WO CONTRAST: M[facility]E[place]EN [place] LUCAS AUGUSTE N [id number] -1950 M [facility] Exm Date: DEC 13, 2021@12:57 Req Phys: ISATU TODD Loc: OP Unknown/0 12-15-2021@13:20 Img Loc: MRI IMAGING (OOS) Service: GENERAL MEDICINE (Case [id number] COMPLETE) MRI ABDOMEN W/WO CONTRAST (M RI Detailed) CPT:61761 Reason for Study: further characterization of a bnormal liver findings on CT Clinical History: SERVICE OEF/OIF LOCATION: N/A SERVICE CONNECTED % - NONE FOUND PROCEDURE REQUESTED: MRI abdomen for further ch aracterization of cirrhosis/Multilobular gastrohepatic soft ti ssue seen on recent CT abdomen CLINICAL HISTORY/REASON FOR REQUEST: 71 yo male with history of stage II mago ng adenocarcinoma and new weight loss, dysphagia, and CT findings concerning for distal esophageal thickening and new lyphadenopathy REQUESTING MD: Isatu Todd PAGER: [phone] PHONE: [phone] Weight: 232.2 lb [105.32 kg] (12/12/2021 05:00) eGFT, BUN, Creatinine (Last 5) Collection DT Sp ec BUN CREATI eGFR(CK 12/12/2021 06:00 PLASM 11 0.70 > 90.0 12/10/2021 08:05 PLASM 8 0.78 >90.0 12/09/2021 06:00 PLASM 6 L 0.70 >90.0 12/08/2021 06:00 PLASM 6 L 0.76 >90.0 12/07/2021 06:00 PLASM 9 0.73 >90.0 The MRI scanner is a very powerful magnet & may be harmful to your patients if they have ferromagnetic metallic ob ject(s) in or on their bodies. DOES THE PATIENT HAVE ANY OF THE FOLLOWING DAYA PRATIBHA OR ITEMS? 1. Does the patient have a cardiac pacemaker or defibrillator? No If yes, please consider an alternative imaging modality or find out whether the device is MRI-conditional (comp atible) by asking to see the patient's wallet-sized device ID car d, which provides the make, model,implantation date of the device and whether it's MRI-conditional Or, provide the hospital's name where the devic e was implanted & the approximate year of implantation: Some of the newer pacemakers or ICDs are MRI-co nditional. To find out whether it is MRI-conditional, please see the link below and type in pacemaker,ICD or another word i n the Search Word Field: 2. Does the patient have an intracranial aneury sm clip, coil, or ventricular shunt? No 3. Does the patient have any shrapnel, bullets, or metallic foreign body in the eyes or any other body part ? Do not know 4. Any surgical implants in the eyes or ears? D o not know 5. Does the patient have a bone growth stimulator,neurostimulator, medication pump, or any other electronic device or leads/wires? Do not know 6. Any implanted vascular stents, coils, filter s, or valves? Do not know 7. Any clips placed in the GI tract for bleedin g or marking? Do not know 8. Is the patient claustrophobic? Yes If yes, kseha donnelly prescribe an oral anxiolytic (such as Ativan) for the patien t to take with him/her to the MRI appointment.The patient will need to arrange for a tow 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 to take him/her home after the MRI appointment. 9. Does the patient have an allergy to MRI cont rast media (Gadolinium)? Do not know 10. Is the patient on dialysis? (Strong relativ e contraindication for Gadolinium) No 11. Is the patient in acute renal failure? (Str judith relative contraindication for Gadolinium) No 12. Is the patient or ? ( Relative contraindication for Gadolinium) No Report Status: Verified Date Reported: DEC 15, 2021 Date Verified: DEC 15, 2021 Cardiac Nurse Practitioner E-Sig:/ES/MARYELLEN LONG Report: MRI ABDOMEN W/WO CONTRAST 12/13/2021 12:57 PM COMPARISON: 12/10/2021 abdomen/pelvis CT, [address] INDICATION: further characterization of abnorma l liver findings on CT TECHNIQUE: Multiplanar multiphasic MR sequences of the abdomen were obtained without and with 19 mL Clariscan IV contrast. FINDINGS: Lung bases: An airspace opacity is again seen i n the right lower lobe, concerning for pneumonia. Hepatobiliary: The liver has smooth contour wit hout fatty infiltration. There are multiple ring-enhancing masses with associated restricted diffusion in the right an d left hepatic lobes as well as in the caudate lobe, concernin g for metastases, the 2 largest each measuring 5.0 cm in the righ t hepatic lobe. The gallbladder remains contracted, limiting it s evaluation. No biliary duct dilatation. Spleen: Measures 12.6 cm in length and is mildl y prominent. There are several well-circumscribed subcentime ter T2 hyperintense, T1 hypointense simple appearing c ysts in the spleen. Pancreas: Atrophic but otherwise unremarkable Adrenal glands: There are a 2.0 cm enhancing ri ght adrenal nodule and a 1.1 cm enhancing left adrenal nodu le without signal loss on the out of phase sequence, concerning f or metastases. tract: Multiple small well-circumscribed T2 hyperintense, T1 hypointense nonenhancing simple cysts in the bi lateral kidneys with a possible Bosniak type II cyst with a thi n hairline internal septation in the right lower renal joey e. Kidneys are otherwise normal. No hydronephrosis. GI tract: Small hiatal hernia is again seen. No dilated bowel loop or bowel obstruction. Vascular/Lymphatics: The splenic, portal, and h epatic veins are widely patent. The IVC and abdominal aorta are patent. No abdominal aortic aneurysm. Probable enlarged ga strohepatic lymph node as described below. Miscellaneous: There is an approximately 4.6 x 4.1 x 6.5 cm (AP x TR x CC) multilobulated, heterogeneously enha ncing mass with associated restricted diffusion in the gastrohe patic region, abutting the caudate lobe, likely a metastatic lymph node. No other enlarged lymph node is seen. Musculoskeletal: No suspicious bone marrow sign al abnormality. Multilevel degenerative disc disease in the lum bosacral spine and visualized portions of the thoracic spine. Impression: 1. Right lower lobe airspace opacity again seen , concerning for pneumonia. 2. Multiple hepatic metastases, the 2 largest e ach measuring 5.0 cm in the right hepatic lobe. Further evaluatio n with a PET scan and ultrasound-guided liver biopsy are suggeste d. 3. An approximately 4.6 x 4.1 x 6.5 cm (AP x TR x CC) multilobulated, heterogeneously enhancing mass with associated restricted diffusion in the gastrohepatic regio n, abutting the caudate lobe, likely a metastatic lymph node. N o other enlarged lymph node. 4. A 2.0 cm enhancing right adrenal nodule and a 1.1 cm enhancing left adrenal nodule without signal loss on the out of phase sequence, concerning for metastases. Please see the saved Mahna Image(s) at the end of this study for pertinent findings. Findings reviewed with the medicine team on 11/17. Primary Diagnostic Code: SIGNIFICANT ABNORMALIT Y ATTENTION NEEDED Secondary Diagnostic Codes: POSSIBLE MALIGNANCY Primary Interpreting Staff: Staff AMELIA THOMAS (Cardiac Nurse Practitioner) / Dec 10, 2021 09:[address] ABDOMEN & PELVIS: RADIOLOGY,OUTSIDE [facility] [place] LUCAS AUGUSTE N [id number] -1950 [facility] Exm Date: DEC 10, 2021@09:30 Req Phys: ISATU TODD Loc: 1S MED/12-10@10:57 Img Loc: CT SCAN (OOS) Service: [facility] MEDICINE (Case [id number] COMPLETE) CT ABD & PELVIS WITHOUT CONT RAST (CT Detailed) CPT:90487 Reason for Study: 71 yo male with dysphagia ?es ophageal anatomy Clinical History: No contrast allergy BUN: 8 (12/10/21 08:05) CREATI: 0.78 (12/10/21 08:05) eGFR Last 3 Results Collection DT Spec CREATI e GFR(CK 12/10/2021 08:05 PLASM 0.78 >90.0 12/09/2021 06 :00 PLASM 0.70 >90.0 12/08/2021 06:00 PLASM 0.76 >90.0 Weight: 233.7 lb [106.00 kg] (12/06/2021 21:43) BODY MASS INDEX - NO HEIGHTS FOUND Pager number: [phone] STAT orders MUST be call ed to RADIOLOGY [phone] to speak to the appropriate point of care technician. Report Status: Verified Date Reported: DEC 10, 2021 Date Verified: DEC 10, 2021 Cardiac Nurse Practitioner E-Sig: Report: EXAM: CT abdomen and pelvis without contrast COMPARISON: CT abdomen and pelvis dated 05/01/2016. HISTORY: dysphagia ?esophageal anatomy TECHNIQUE: Contiguous axial images of the abdomen and pelv is were obtained without intravenous contrast. Coronal and sagit caitlin reformatted images were also obtained. Total number of imag es submitted = [phone]. Total DLP (mGy*cm): 773.80 IV contrast: Not administered FINDINGS: The absence of oral and intravenous contrast li mits the exam. Lung Bases: New incompletely imaged loculated p leural fluid with surrounding pleural thickening in the posterior right base. Trace pericardial fluid. Liver: Mildly enlarged, measuring 21 cm, which has increased since the prior exam. Multilobular gastrohepati c soft tissue, which is new since the prior exam and difficult to separate from the caudate lobe without intravenous contrast. Biliary: Limited evaluation of the gallbladder due to contraction and streak artifact related to barium within ad jacent colon. Spleen: Mildly enlarged, measuring 13 cm, which has increased since the prior exam. Pancreas: Unchanged mild diffuse pancreatic atr ophy. Adrenal glands: Slight decrease in size of two right adrenal nodules, currently measuring 1.7 x 1.7 cm and 3 .7 x 3.0 cm. Previously, the nodules measured 2.1 x 2.5 cm a nd 4.5 x 3.4 cm. New 1.1 x 1.2 cm left adrenal nodule.. : No renal, ureteral or bladder calculi. No h ydronephrosis or hydroureter. A probable subcentimeter exophytic hemorrhagic or proteinaceous right lower pole renal cyst has n ot significantly changed. Slight bladder wall thickening, probab ly due to incomplete distention. Upper limits of normal s ize prostate. Abdominal Aorta: Extensive aortoiliac calcified plaque. No aneurysm. Lymph Nodes: Multiple celiac and portocaval tsering tty lymph nodes, which have increased in size. GI: Small hiatal hernia with mild distal esopha geal wall thickening. Unchanged 8 mm lipoma within the 3r d portion of the duodenum. Residual contrast within the colon. A n apparent right hemicolectomy has been performed since the prio r exam. Mild fat stranding adjacent to the hepatic flexure and l iver may represent scarring or nonspecific trace ascites. No bowel obstruction. Status post midline anterior abdominal wall her rachel repair with mesh placement. Bones: Multilevel degenerative change within th e spine. Unchanged minimal L4-L5 anterolisthesis. No suspicious amilcar ne lesions. Other: Unchanged small fat-containing bilateral inguinal hernias. Impression: 1. Small hiatal hernia with nonspecific distal esophageal wall thickening, which could be due to incomplete di stention, esophagitis or neoplasm. Esophagram may be help ful to further evaluate. 2. Multilobular gastrohepatic soft tissue, whic h is new since 2016 and difficult to separate from the caudate lobe without intravenous contrast. This could represent hype rtrophy of the caudate lobe, which can be seen with cirrhosis, but lymphadenopathy or neoplasm cannot be completel y excluded. Nonemergent MRI of the liver is recommended. 3. Slight decrease in size of right adrenal nod ules, but new left adrenal nodule. Attention to this on the follow -up MRI is suggested. 4. Mild hepatosplenomegaly. 5. Shotty nonspecific celiac and portocaval lym ph nodes. READING PHYSICIAN: Ramone Munoz D.O. [phone] 12/10/2021 10:55 EDT [facility] [employer] [facility] [phone] (For Medical Practitioner Use Only ) [address] [place] [address], [place] [address], [address] [place] [address] Attention Patients / Veterans: If you have ques tions or concerns about these test results, please contact your o rdering provider or primary care team. Primary Diagnostic Code: SIGNIFICANT ABNORMALIT Y, ATTN NEEDED Primary Interpreting Staff: RADIOLOGY,OUTSIDE SERVICE, Staff Physician / Dec 09, 2021 07:34 AM BASW (MODIFIED): JESSIE CHENEY [place] LUCAS AUGUSTE N [id number] -1950 [facility] Ex Date: DEC 09, 2021@07:34 Req Phys: ISATU TODD Loc: 1S MED/12-09@11:26 Img Loc: XRAY (OOS) Service: [facility] MEDICINE (Case [id number] COMPLETE) BASW (MODIFIED) (EUNICE stephenson) CPT:11471 Contrast Media : Barium Reason for Study: dysphagia ?esophageal spasm Clinical History: Report Status: Verified Date Reported: DEC 09, 2021 Date Verified: DEC 09, 2021 Cardiac Nurse Practitioner E-Sig:/ES/JESSIE CHENEY Report: OLIW (MODIFIED) , 12/09/2021 TECHNIQUE: Real-time fluoroscopic images acquir ed after the patient ingested varying consistencies of bariu m. INDICATION: dysphagia ?esophageal spasm COMPARISON: Chest CT 12/06/2021 Fluoroscopy time: 2 minutes and 57 seconds Dose : 22.73mGy FINDINGS: The patient demonstrates early large volume aspiration and consistent penetration. The aspiration was silent without a cough reflex elicited. The patient also demonst rates prolonged chewing and piecemeal swallowing of the ingeste d barium. Moderate residue remains the vallecula and piriform sinu ses. A large column of barium persists in the esopha dagoberto. There is to and fro motion and slow clearing of the ingeste d barium from the patient's esophagus. A barium tablet was not administered as the pat ient felt unwell. Impression: 1. Gross, silent aspiration. 2. Large column of barium remained in the patient's esophagus. The patient mention ed that after he eats he often will lay recumbent. This change i n posture along with the large amount of ingested material that remains in the esophagus as additional risk for larger volume aspiration. 3. Please refer to speech pathology's note for add itional details and recommendations. Primary Diagnostic Code: NO IMMEDIATE ATTENTION REQUIRED Primary Interpreting Staff: JESSIE CHENEY, RADIOLOGIST (Cardiac Nurse Practitioner) /TLC Dec 06, 2021 12:[address] CHEST (INCLUDES ADRENALS): JESSIE CHENEY [facility] LUCAS AUGUSTE N [id number] -1950 M [facility] Exm Date: DEC 06, 2021@12:59 Req Phys: JELANI SÁNCHEZ Pat Loc: [facility] ED DAYS M 1RD (Req'g Loc) Img Loc: CT SCAN (OOS) Service: Unknown (Case [id number] COMPLETE) CT THORAX W/O CONT (CT Detai led) CPT:57280 Reason for Study: Opacification right chest Clinical History: No contrast allergy BUN: 13 (12/06/21 12:00) CREATI: 0.90 (12/06/21 12:00) eGFR 05/16/21 09:43 52 L Weight: 232.6 lb [105.51 kg] (12/06/2021 11:40) BODY MASS INDEX - NO HEIGHTS FOUND Pager number: [phone] STAT orders MUST be called t o RADIOLOGY [phone] to speak to the appropriate point of care technician. Indications - Other: Opacification right chest, covid positive, lung cancer histo Report Status: Verified Date Reported: DEC 06, 2021 Date Verified: DEC 06, 2021 Cardiac Nurse Practitioner E-Sig:/ES/JESSIE CHENEY Report: CT THORAX W/O CONT COMPARISON: chest CT 06/23/2019, 05/04/2017 . INDICATION: Opacification right chest TECHNIQUE: Chest CT was obtained without intrav enous contrast. FINDINGS: A right-sided Mediport is in place wi th the tip terminating in the proximal SVC. Airways/Lungs/Pleura: There is volume loss in t he right hemithorax with compensatory hyperinflation of the left lung, progressed from prior. The right main stem bronchus is completely occl uded as are all remaining bronchioles distal to the right main stem bronchus. The residual aerated pulmonary parenchymal demonstr ates scattered consolidative and mixed attenuation opacities a long with scattered, basilar predominant calcifications. The left lung is clear. No pneumothorax. Cardiomediastinum, Mal[place], lymph nodes and soft t issues: Significant rightward mediastinal shift, previo usly mild. No pathologically enlarged mediastinal lymph nodes . Mediastinal fat is preserved. Normal noncontrast appearance of the esophagus with a small hiatal hernia. Normal cardiac size. Sca ttered coronary artery and aortic calcifications. No thoracic a ortic aneurysm. Upper Abdomen: New 1.5 cm soft tissue density l eft adrenal lesion, (series 4 image 306). Decreased size of 2 right adrenal gland lesions, measuring 1.9 and 3.3 cm respect ively, previously 2.3 and 4.4 cm respectively, (series 4 images 3 01 and 273). Miscellaneous: None Musculoskeletal: No suspicious lytic or blastic osseous lesions. No acute osseous findings. Similar multilevel d egenerative changes of the visualized thoracolumbar spine, most prominent from T4 to T10 with flowing anterolateral enthe sophytes, facet arthropathy and mild disc space narrowing. No a cute osseous findings. Impression: 1. A probable majority of the new, abnormal pul monary parenchymal findings in the residual right lung is related to a large volume aspiration event, possibly acute o n chronic. Other processes such as malignancy cannot entirely be excluded but would not adequately be evaluated by imaging un til the abnormalities related to the patient's aspirati on/aspiration pneumonitis have resolved. Consider modified ba rium swallow with speech pathology to evaluate patient's airway p rotection abilities and aspiration risk as this examinati on suggests the patient is highly susceptible to aspiration jeffrey nts. 2. New 1.4 cm left adrenal solid lesion. Consider multipha se CT or MRI for more definitive characterization. Primary Diagnostic Code: NO IMMEDIATE ATTENTION REQUIRED Primary Interpreting Staff: JESSIE CHENEY, RADIOLOGIST (Cardiac Nurse Practitioner) Primary Interpreting Resident: PRINCE CHAMPION, Resident /BR Dec 06, 2021 11:58 AM CHEST SINGLE VIEW: JESSIE CHENEY LUCAS AUGUSTE N [id number] -1950 M [facility] Exm Date: DEC 06, 2021@11:58 Req Phys: JELANI SÁNCHEZ Pat Loc: [facility] ED DAYS M 1RD (Req'g Loc) Img Loc: XRAY (OOS) Service: Unknown (Case [id number] COMPLETE) CHEST SINGLE VIEW (RAD Detai led) CPT:03503 Proc Modifiers : PORTABLE EXAM Reason for Study: SOB, home covid test positive Clinical History: Report Status: Verified Date Reported: DEC 06, 2021 Date Verified: DEC 06, 2021 Cardiac Nurse Practitioner E-Sig:/ES/JESSIE CHENEY Report: Exam type: Chest x-ray TECHNIQUE: Frontal view Reason for study: Shortness of breath home Covi d test positive COMPARISON: Chest x-ray 05/01/[address] 06/23/2019 DATE: FINDINGS: A right-sided Mediport is in place wi th the tip projecting over the region of the innominate ve in, similar to CT. There is near complete opacification of the rig ht hemithorax with associated volume loss and ipsilateral mediasti nal shift. A small amount of the right upper lung zone remains aer ated. The compensatorily hyperinflated left lung is clear . No pneumothorax. The trachea is deviated towards the right side. Visualized osseous structures demonstrate moder ate acromioclavicular arthropathy.. Impression: Near complete opacification of the right hemith orax likely due to a combination of pleural fluid and associated c ompressive atelectasis. A superimposed infectious process cannot entirely be excluded. The left lung is clear. Primary Diagnostic Code: NO IMMEDIATE ATTENTION REQUIRED Primary Interpreting Staff: JESSIE CHENEY, RADIOLOGIST (Cardiac Nurse Practitioner) /TLC Pathology Reports: +/- 30 days of the [...] the Encounter. The data comes from all ID treatment facilities. Date/Time Pathology Report Provider Source Dec 06, 2021 03:30 PM LR MICROBIOLOGY REPORT: [facility] Reporting Lab: [facility] [CLIA# [id number]] [address] [place] [address] Accession [UID]: [id number] [[id number]] Receiv ed: Dec 06, 2021@16:14 Collection sample: BLOOD CUL T BOTTLE(NIRMAL/AERO)Collection date: Dec 06, 2021 15:30 Site/Specimen: BLOOD Provider: JELANI SÁNCHEZ Comment on specimen: LAC Test(s) ordered: BLOOD CULTURE ANAEROBI C....... completed: Dec 12, 2021 06:18 * BACTERIOLOGY FINAL REPORT => Dec 12, 2021 06:1 8 TECH CODE: [id number] Bacteriology Remark(s): NO GROWTH IN 5 DAYS =--=--=--=--=--=--=--=--=--=--=--=--=--= --=--=--=--=--=--=--=--=--=--=--=--=-- Performing Laboratory: Bacteriology Report Performed By: [facility] [CLIA# [id number]] [address] [place] [address] Dec 06, 2021 03:30 PM LR MICROBIOLOGY REPORT: [facility] Reporting Lab: [facility] [CLIA# [id number]] [address] [place] [address] Accession [UID]: [id number] [[id number]] Receiv ed: Dec 06, 2021@16:14 Collection sample: BLOOD CUL T BOTTLE(NIRMAL/AERO)Collection date: Dec 06, 2021 15:30 Site/Specimen: BLOOD Provider: JELANI SÁNCHEZ Comment on specimen: LAC Test(s) ordered: BLOOD CULTURE AEROBIC. ........ completed: Dec 12, 2021 06:17 * BACTERIOLOGY FINAL REPORT => Dec 12, 2021 06:1 7 TECH CODE: [id number] Bacteriology Remark(s): NO GROWTH IN 5 DAYS =--=--=--=--=--=--=--=--=--=--=--=--=--= --=--=--=--=--=--=--=--=--=--=--=--=-- Performing Laboratory: Bacteriology Report Performed By: [facility] [CLIA# [id number]] [address] [place] [address] Encounter Notes: All associated encounter notes This section contains the clinical notes associated to the Encounter. Date/Time Encounter Note(s) Provider Source November 15, 2021 10:27 PRIMARY CARE NOTE: KAITLIN TINOCO [facility] LOCAL TITLE: Primary Care Clinic Note [facility] STANDARD TITLE: PRIMARY CARE NOTE DATE OF NOTE: NOVEMBER 15, 2021@10:27 ENTRY DATE: NOVEMBER 15, 2021@10:27:20 AUTHOR: DIPIKA TINOCO EXP COSIGNER: URGENCY: STATUS: COMPLETED Primary Care Clinic Note HPI LUCAS AUGUSTE is a 71 year old MALE with hist ory of psoriasis, lung cancer 04/2018 s/p chemotherapy/radx/dervalumab now in remission, diverticulitis s/p partial colonic resection, chronic low back pain w/ spinal stenosis s/p discectomy (remote), COPD, OA s/p R TKA () presenting for primary care follow-up. This appointment was initial ly scheduled as new patient intake, but then he was able to be seen on 10/18/21. We kept the appointme nt for EGD follow-up, but unfortunately it has not happened yet. [facility] EGD has not happened an d he hasn't heard anything. He called [facility] and they don't have the referral. Today Pierre is also requesting that his p ort be taken out. We reviewed the [facility] for his oncology care and it covers this. He agr ees to speak with his oncologist. Since last appointment. Swallowing bothe ring a little bit now. Hurting pain in the esophagus. Usually after eating lower chest pain. The Omeprazole is not helping at all. No vomiting, but has nausea and poor appetite and has been losing weight. +Early satiety. ASSESSMENT AND PLAN # # Anorexia, Nausea Presenting with sevearl jolanta h history of epigastric pain with tendenress on exam and anorexia with poor PO appetite and n ausea. No vomiting Feels better laying down. Also sensation of food getting stuck in th e lower 1/3 of esophagus- no serenity dysphagia w/ coughing after swallowing. Food stuck is solid more likel y. In general symptoms not clearly associated w/ paritcular food groups. +W eight loss 22 pounds in 6 months. A/ Suspect GERD but alarming symptoms w/ weight loss May need a swallow study, but based on symptoms will first start with EGD and PPI. HP testing stool if possible P/ - EGD 1-2 weeks - Discussion today about going t o [facility] if cannot get scheduled at [facility]. - Continue Omeprazole 20mg BID 30-60 minutes bef ore meals - Pending results of EGD will exapnd unintention al weight loss work-up and possibly obtain CTAP. - Discussed today againt to figure out i f any dysphagia component and does not sound to be much - will defe r WANIGAN CLERK evaluation at this time, but consider for the future if those symptoms are present. # Low Back Pain s/p NSGY discectomy remotely. On chart review / prior PCP notes - had pain cli fidencio referral. No relief from biowave. No relief w/ chiropractery. Prior MRI n otes severe psinal stenosis, with moderate-severe foramin al stenosis. Prior PCP placed a consult to [facility] 07/2021. He was told over phone appointment to [facility]. I cannot see these records, so we will need to get in future, but f irst needs to do PT. Long discussion today about [facility]CC [place] vs [place]. - Renew PT referral - accidentally not p laced last clinic visit. Placed today. # COPD # Prior Lung Cancer Last PCP placed referral for [facility] Pulm f ollow-up as Dr. Vallejo left, as well as [facility] He does not want to come to [facility]. He has appointment 01/18/22. - Continue Oncologic surveillance care - referra [place]inas is in - Asked him to tell his Oncology team that the r eferral covers port removal # Depression - Continue Sertraline 150mg daily # Obesity # Prediabetes - Continue Metformin # Podiatry Has been following chronically for onychomycosis and foot pain - Renewed Podiatry consult # Tobacco Use Disorder - Quit 6 years ago Previously smoked 1.5ppd. # RTC 3 months OBJECTIVE 1) Vital Signs Temp: 97.1 F [36.2 C] (10/18/2021 14:06) Pulse: 100 (10/18/2021 14:06) B/P: 116/84 (10/18/2021 14:06) Resp 18 (10/18/2021 14:06) Height 72 in [182.9 cm] (03/05/2019 11:48) Wt: 276 lb [125.19 kg] (10/18/2021 14:06) BMI: BODY MASS INDEX - NO HEIGHTS FOUND 2) Physical Exam - General Appearance: no acute distress.. - Psych: Alert, oriented, pleasant and cooperati ve. 3) Pertinent Labs GLU,BUN,CREAT,LYTES GLUCOSE BUN CREAT SODIUM K C HLOR CO2 05/16/21 09:43 108 H 18 1.35 134 L 4.9 99 L 21 GLU,BUN,CREAT,LYTES ANION eGFR 05/16/21 09:43 14 52 L HGB A1C: 5.8 (05/16/21 09:43) HCT: 47.0 (05/16/21 09:43) HGB: 14.2 (05/16/21 09:43) Collection DT Specimen Test Name Result Units Re f Range 05/16/2021 09:43 PLASMA!! ALBUMIN 3.9 g/dL 3.2 - 5.0 05/16/2021 09:43 PLASMA!! BILIRUBIN, TOTAL 0.6 m g/dL 0.2 - 1.2 05/16/2021 09:43 PLASMA!! ALKALINE PHOSPHAT 102 U/L 40 - 150 05/16/2021 09:43 PLASMA!! ALT(SGPT) 18 U/L 7 - 5 2 05/16/2021 09:43 PLASMA!! AST(SGOT) 15 U/L 5 - 3 4 !! Indicates COMMENTS AVAILABLE...Refer to Inter im Lab Report. CHOL: 187 (07/01/21 08:17) HDL: 44 (07/01/21 08:17) LDL: 112 (07/01/21 08:17) TRI (07/01/21 08:17) B12 - NONE FOUND TSH: 1.08 (05/16/21 09:44) PSA (BALANCE SHEET ANALYST) - NONE FOUND HIV: Collection DT Spec HIV SCR 05/17/2018 11:19 SERUM Non-Reactive Occult Blood Fit: Collection DT Spec FIT 06/1805/01/2016 08:00 FECES Negative MEDICATIONS Active Outpatient Medications (excluding Supplie s): Active [...] GRA MS DAILY OVER ALL JOINTS. 7) LOSARTAN 25MG TAB TAKE ONE-HALF TABLET BY HANNAH TH EVERY ACTIVE DAY FOR BLOOD PRESSURE/HEART 8) METFORMIN HCL 500MG 24HR SA TAB TAKE ONE TABL ET BY ACTIVE MOUTH EVERY DAY WITH A MEAL FOR DIABETES 9) OLODATEROL/TIOTROP 2.5MCG/ACTUAT 60D INH INHA LE 2 ACTIVE PUFFS BY MOUTH EVERY DAY FOR BREATHING 10) OMEPRAZOLE 20MG EC CAP TAKE ONE CAPSULE BY M OUTH ACTIVE EVERY MORNING BEFORE BREAKFAST FOR STOMACH ACID (TAKE HALF-HOUR BEFORE A MEAL) 11) SALICYLIC ACID 3% SHAMPOO SHAMPOO SMALL AMOU NT ACTIVE TOPICALLY ON MONDAYS, WEDNESDAYS AND FRIDAYS ; MASSAGE INTO SCALP, LET SIT 10 MIN AND RINSE 12) SERTRALINE HCL 50MG TAB TAKE THREE TABLETS B Y MOUTH ACTIVE EVERY DAY FOR DEPRESSION OR ANXIETY UPCOMING APPOINTMENTS Future Appointments - Jan@10:00 [facility] DERM TERMINE B2RD Feb@10:00 [facility] B3RF Jul@10:00 [facility] ARTH FELLOW 4 M2RE Diabetic Eye Exam: Patient declines diabetic eye exam at this time . DM/PVD/ESRD Foot Exam: [facility] [place] DECLINED Diabetic/PVD/End Stage Rick al Disease Foot Exam at this time. COVID-19 Immunization: The patient declines an additional dose of vacc ine at this time. Melanoma Follow-up: Patient is already being followed by Dermatolog y specifically for melanoma F/U. LAST Appointment: July 08, 2021 Medication Reconciliation: Outpatient: Has the patient been taking medications as docu mented in the EMLR? YES: The patient has been taking medications as documented in the EMLR. Essential Medication List for Review used to co mplete this medication reconciliation. INCLUDED IN THIS LIST: Alphabetical list of act azar outpatient prescriptions dispensed from this [facility] (local) an d dispensed from another VA or [facility]D facility (remote) as well as inpatien t [...] whether with a VA or non-VA provider. Allergies/ADRs (Tool #5) FACILITY ALLERGY/ADR -------- No Remote Allergy/ADR [facility] Med Recon NoGlossary (Tool #1) INCLUDED IN THIS LIST: Alphabetical list of act azar outpatient prescriptions dispensed from this VA (local) an d dispensed from another ID or [facility] facility (remote) as well as inpatien t orders (local pending and active), local clinic medications, locally docu mented non-VA medications, and local prescriptions that have or be en discontinued in the past 90 days. Non-VA Meds Last Documented On: Aug 16, 2017 NOTE The display of VA prescriptions disp ensed from another ID or [facility] facility (remote) is limited to active outp atient prescription entries matched to National Drug File at the [facility] site and may not include some items such as investigational drugs, compo unds, etc. NOT INCLUDED IN THIS LIST: Medications self-ent ered by the patient into personal health records (i.e. [employer]) ar e NOT included in this list. Non-VA medications documented outside [facility] s ID, remote inpatient orders (regardless of status) and remote clinic medications are NOT included in this list. The patient and provider must always discuss medications the patient is taking, regardless o f where the medication was dispensed or obtained. OUTPT ALBUTEROL 90MCG (CFC-F) 200D ORAL INHL (S tatus = Active) INHALE 2 PUFFS BY MOUTH FOUR TIMES DAILY NEE DED FOR BREATHING Rx# [id number] Last Released: 05/20/21 Qty/Days Borges pply: Rx Expiration Date: 05/17/22 Refills Remainin OUTPT AMLODIPINE BESYLATE 5MG TAB (Status = Act azar) TAKE ONE TABLET BY MOUTH EVERY DAY FOR BLOOD VA ESSURE/HEART, DO NOT TAKE WITH GRAPEFRUIT JUICE Rx# [id number] Last Released: 08/02/21 Qty/Days Sup ply: 90/90 Rx Expiration Date: 05/17/22 Refills Remainin OUTPT AMMONIUM LACTATE 12% LOTION (Status = Act azar) APPLY THIN FILM TOPICALLY EVERY DAY FOR DRY IRR ITATED SKIN ON ARMS AND LEGS Rx# [id number] Last Released: 05/18/21 Qty/Days Sup ply: 240/30 Rx Expiration Date: 11/20/21 Refills Remainin OUTPT CARBOXYMETHYLCELLULOSE NA 0.5%(PF)OP BOB (Status = Active) INSTILL ONE DROP IN BOTH EYES FOUR TIMES A DAY FOR DRYNESS Rx# [id number] Last Released: 05/11/21 Qty/Days Borges pply: 60/30 Rx Expiration Date: 02/25/22 Refills Remainin OUTPT CHOLECALCIF 10MCG (D3-400UNIT) TAB (Statu s = Active) TAKE ONE TABLET BY MOUTH EVERY DAY Rx# [id number] Last Released: 08/25/21 Qty/Days Sup ply: 100/90 Rx Expiration Date: 05/17/22 Refills Remainin OUTPT DICLOFENAC NA 1% TOP GEL (Status = Active ) APPLY 4 GRAMS TO LOWER EXTREMITIES TOPICALLY FO UR TIMES DAILY NEEDED FOR PAIN/INFLAMMATION. *DO NOT EXCEED 16 GRAMS DAILY TO ANY JOINT OF LOWER EXTREMITIES. DO NOT EXCEED 8 GRAMS DAILY TO ANY JOINT OF UPPER EXTREMITIES. DO NOT EXCEED T OTAL DOSE OF 32 GRAMS DAILY OVER ALL JOINTS. Rx# [id number] Last Released: 05/20/21 Qty/Days Borges pply: 100/30 Rx Expiration Date: 05/17/22 Refills Remainin OUTPT HYDROPHILIC (EQV EUCERIN) TOP CREAM (Stat us = ) APPLY SMALL AMOUNT TOPICALLY NEEDED Rx# [id number] Last Released: 05/17/21 Qty/Days Borges pply: 454/30 Rx Expiration Date: 10/29/21 Refills Remainin OUTPT LOSARTAN 25MG TAB (Status = Active) TAKE ONE-HALF TABLET BY MOUTH EVERY DAY FOR BLO OD PRESSURE/HEART Rx# [id number] Last Released: 08/29/21 Qty/Days Sup ply: 45/90 Rx Expiration Date: 05/17/22 Refills Remainin OUTPT METFORMIN HCL 500MG 24HR SA TAB (Status = Active) TAKE ONE TABLET BY MOUTH EVERY DAY WITH A MEAL FOR DIABETES Rx# [id number] Last Released: 08/25/21 Qty/Days Sup ply: 90/90 Rx Expiration Date: 05/17/22 Refills Remainin OUTPT OLODATEROL/TIOTROP 2.5MCG/ACTUAT 60D INH (Status = Active) INHALE 2 PUFFS BY MOUTH EVERY DAY FOR BREATHING Rx# [id number] Last Released: 10/04/21 Qty/Days Sup ply: 3 Rx Expiration Date: 05/17/22 Refills Remainin OUTPT OMEPRAZOLE 20MG EC CAP (Status = Disconti nued) TAKE ONE CAPSULE BY MOUTH EVERY MORNING BEFORE BREAKFAST FOR STOMACH ACID (TAKE HALF-HOUR BEFORE A MEAL) Rx# [id number] Last Released: 11/02/21 Qty/Days Sup ply: 90/90 Rx Expiration Date: 01/29/22 Refills Remainin OUTPT OMEPRAZOLE 20MG EC CAP (Status = Active) TAKE ONE CAPSULE BY MOUTH TWICE A DAY 30 MINUTE S BEFORE MEALS FOR STOMACH ACID (TAKE HALF-HOUR BEFORE A MEAL) Rx# [id number] Last Released: 11/16/21 Qty/Days Supp ly: 180/90 Rx Expiration Date: 11/16/22 Refills Remainin OUTPT SALICYLIC ACID 3% SHAMPOO (Status = Activ e) SHAMPOO SMALL AMOUNT TOPICALLY ON MONDAYS, AND FRIDAYS ; MASSAGE INTO SCALP, LET SIT 10 MIN AND RINSE Rx# [id number] Last Released: 04/02/21 Qty/Days Borges pply: 240/30 Rx Expiration Date: 11/20/21 Refills Remainin OUTPT SERTRALINE HCL 50MG TAB (Status = Active) TAKE THREE TABLETS BY MOUTH EVERY DAY FOR DEPRE SSION OR ANXIETY Rx# [id number] Last Released: 09/20/21 Qty/Days Supp ly: 270/90 Rx Expiration Date: 05/17/22 Refills Remainin OUTPT TURMERIC CURCUMIN COMPLEX 500MG CAP/TAB ( Status = ) TAKE ONE CAP/TAB BY MOUTH TWICE A DAY Rx# [id number] Last Released: 05/16/21 Qty/Days Borges pply: 180/90 Rx Expiration Date: 11/02/21 Refills Remainin SUPPLIES Suicide Screen: C-SSRS Screening [place]-Suicide Severity Rating Scale (C-SSRS Screener) 1. Over the past month, have you wished you wer e or wished you could go to sleep and not wake up? No 2. Over the past month, have you had any actual thoughts of killing yourself? No 3. Over the past month, have you been thinking about how you might do this? Response not required due to responses to other questions. 4. Over the past month, have you had these thou ghts and had some intention of acting on them? Response not required due to responses to other questions. 5. Over the past month, have you started to wor k out or worked out the details of how to kill yourself? Response not required due to responses to other questions. 6. If yes, at any time in the past month did yo u intend to carry out this plan? Response not required due to responses to other questions. 7. In your lifetime, have you ever done anythin g, started to do anything, or prepared to do anything to end you r life (for example, collected pills, obtained a gun, gave away valu lane, went to the roof but didn't jump)? No 8. If YES, was this within the past 3 months? Response not required due to responses to other questions. /emely/ KAITLIN TINOCO MD Staff Physician Signed: 11/16/2021 20:19 November 15, 2021 10:12 PRIMARY CARE ANNUAL EVALUATION NOTE: Teresita DONIS [facility] LOCAL TITLE: Preventive Health Annual Review CLINIC STANDARD TITLE: PRIMARY CARE ANNUAL EVALUATION N OTE DATE OF NOTE: NOVEMBER 15, 2021@10:12 ENTRY DATE: NOVEMBER 15, 2021@10:12:25 AUTHOR: GEORGE DONIS EXP COSIGNER: URGENCY: STATUS: COMPLETED Herpes Zoster (Shingles) Vaccine: The patient received recombinant zoster vaccine (RZV) 0.5 ml IM in Right deltoid. Flamer Sealer: Media Radar Lot#s and Expiration Date: 0621alk150 exp 09/16 Administered by protocol/policy Complications: None The VIS for the recombinant zoster vaccine (RZV ) dated Jul was given to the patient. /emely/ GEORGE DONIS Signed: 11/15/2021 10:26 Aug 08, 2021 09:24 NONVA NOTE: KAITLIN TINOCO [facility] LOCAL TITLE: NonVA Medical Records [facility] STANDARD TITLE: NONVA NOTE DATE OF NOTE: AUG 08, 2021@21:24 ENTRY DATE: AUG 08, 2021@21:24:22 AUTHOR: DIPIKA TINOCO EXP COSIGNER: URGENCY: STATUS: COMPLETED Re[facility] CT [facility] indication: primary lung adenocarcinoma Findings: peristent volume loss in the R chest p ain again noted. Stable rightwards mediastinal shift . Persistetn R lung volume loss with prominent areas of perihilar consolidation w ith air bronchograms. Stable right basilar scarring and atelectasis. Stable righ t-sided paraseptal emphysematous changes, unchagned from prior exam. Stable left apical para emphysematous changes, unchanged from prior exam. no suspicious nodules or mass identi fied within the left lung. Stable R-sided superior pleural fluid ag ain noted. Small hiatial hernia. Round 1l8cm R adrenal mass. Unchanged from prior exas. No thoracic LAD. Stable indetmerinate R adrenal masses. /emely/ KAITLIN TINOCO MD Staff Physician Signed: 08/08/2021 21:27
--- OUTSIDE RECORDS SUMMARY | 2022-01-19 07:56 | XMS_ITS | Encounter Summary ---
:1950 Author Organization Department [facility] Address [address] [place] [id number] Support Name Relationship Address Phone YUSRA MEEK Unavailable [address] [facility] [place] [address] YUSRA MEEK Unavailable [address] [facility] [place] [address] CLAY MOSLEY Unavailable Unavailable SJ SANTACRUZ Unavailable [...] MEDICARE MEDICARE PART Jun 18, PART A [id number] DO KALYANI PATIENT (WNR) (M) A 2016 13A 1 UGLAS MEDICARE MEDICARE PART Jun 18, PART B [id number] DO KALYANI PATIENT (WNR) (M) B 2016 13A 1 [place]AS MEDICARE MEDICARE PART Jun 18, PART A [id number] KALYANIDO PATIENT (WNR) (M) A 2017 VH81 2 [place]GLAS MEDICARE MEDICARE PART Jun 18, PART B [id number] DO KALYANI PATIENT (WNR) (M) B 2017 VH81 2 LAS UNITED MEDICARE MCR(Jun 18 [id number] Luz MEEK PATIENT HEALTHCARE ADVANTAGE NR) 2021 37 0 [facility] (WNR) Selected Encounter This section includes the information on record at AL for the Encounter. Date/Time Encounter Type Encounter Description Reason Provider Source 2021 09:57 Outpatient Encounter PRIMARY CARE/MEDICINE AM IHE Encounter Template Text not used by AL Plan of Treatment: Future Appointments (+ 6 months) and Future Tests (+/- 45 days) The Plan of Treatment section includes future care activities for the patient [facility] This section includes future appointments and future orders which are active, pending orscheduled.Future Appointments This section includes appointments that were scheduled to occur 6 months from the date of the Encounter, up to a maximum of 20 appointments. The data comes from all AL treatment facilities. Appointment Date/Time Appointment Type Appointment Facili ty Name Jul 18, 2021 09:00 AM AMBULATORY - MEDICINE [facility] Jul 18, 2021 10:30 AM AMBULATORY - MEDICINE [facility] Aug 03, 2021 08:00 AM [facility] Sep 05, 2021 08:00 AM AMBULATORY - SURGERY [facility] Sep 19, 2021 08:00 AM [facility] October 18, 2021 02:00 PM AM[facility] November 15, 2021 10:00 AM [facility] - [facility]INE [facility] Dec 01, 2021 10:30 AM AM[facility]UL[facility]ORY - NONE [place] [facility] Dec 06, 2021 11:40 AM AMBULATORY - MEDICINE [facility] Dec 21, 2021 08:00 AM AMBULATORY - NONE [facility] Lab Results: +/- 30 days of the encounter This section includes the Chemistry and Hematology Lab Results on record with AL for the patient. Radiology Reports and Pathology Reports are provided separately, in subsequent sections.Lab Results This section contains the Chemistry/Hematology Results that were resulted 30 days before or 30 daysafter the date of the Encounter. Date/Time Source Result Type Result - Unit Interpretation Reference Range Comment Jul 01, 2021 08:17 [facility] LIPOPROTEIN CHOLESTEROL S pecimen Type: PLASMA AM FRACT. PANEL Comment: Tests performed on Novalux 405 [id number] Ordering Provid er: ISHMAEL CATES Report Released Date/Time: May 30, 2021 09:07 AM Reporting Lab: [facility] [address] [facility] [address] Performing Lab: [facility] MONTOYA [facility] [address] [facility] [address] CHOLESTEROL 187 0-199 TRIGLYCERIDE 153 H 0-149 HDL CHOLESTEROL 44 >40 LDL CHOLESTEROL (CALC) 112 0-129 Social History: Smoking Status (Most current) and Tobacco Use (All prior to encounter date) This section includes the most current, and the historical, smoking and tobacco-related health factors from the AL facility where the Encounter took place.Current Smoking Status This section includes the most current smoking, or tobacco-related health factor, from the AL facility where the Encounter took place. Date/Time Current Smoking Status Comment [facility] Apr 01, 2020 01:16 PM QUIT TOBACCO USE 1-7 YEARS AGO [facility] Tobacco Use History This section includes a history of the smoking, or tobacco- related health factors, that were collected on or before the date of the Encounter. The data comes from the AL facility where the Encounter took place. Date/Time Smoking Status/Tobacco Use Comment [facility] Mar 24, 2020 03:00 PM QUIT TOBACCO USE 1-7 YEARS AGO [facility] Feb 21, 2019 04:11 PM QUIT TOBACCO USE 1-7 YEARS AGO [facility] Feb 20, 2019 03:38 PM QUIT TOBACCO USE 1-[address] [facility] Feb 03, 2019 09:50 AM QUIT TOBACCO USE 1-7 YEARS AGO [facility] May 25, 2016 11:53 PM QUIT TOBACCO USE IN [facility]ST [facility]AR [facility] May 23, 2016 06:57 PM QUIT TOBACCO USE > 7 YEARS AGO [facility] May 19, 2016 03:55 PM QUIT TOBACCO USE IN [facility]ST [facility]AR [facility] May 19, 2016 10:29 AM QUIT TOBACCO USE 1-7 YEARS AGO [facility] May 01, 2016 07:26 PM QUIT TOBACCO USE IN PAST YEAR [facility] May 01, 2016 03:11 PM QUIT TOBACCO USE IN [facility]ST [facility]AR [facility] May 01, 2016 11:19 AM QUIT TOBACCO USE IN PAST YEAR [facility] DUFFT [facility] Mar 16, 2016 12:50 PM V1-PT DECLINES REF TO TOBACCO [facility] Mar 16, 2016 12:50 PM V1-PT THINKING ABOUT QUIT [facility] TOBACCO USE Aug 12, 2015 08:48 AM CURRENT SMOKER [facility] Yates [facility] Pathology Reports: +/- 30 days of the [...] the Encounter. The data comes from all [facility] facilities. Date/Time Pathology Report Provider Source Jul 20, 2021 08:24 AM LR SURGICAL PATHOLOGY REPORT: STEFANY MILLER [facility] LOCAL TITLE: LR SURGICAL PATHOLOGY REPORT [facility] STANDARD TITLE: PATHOLOGY REPORT DATE OF NOTE: JUL 20, 2021@08:24:41 ENTRY DATE: JUL 20, 2021@08:24:41 AUTHOR: NIURKA MILLER EXP COSIGNER: URGENCY: STATUS: COMPLETED $APHDR Reporting Lab: [facility] [CLIA# [id number]] [address] [place] [address] - - - - - - [...] DIAGNOSIS: BCC versus SCC Surgeon/physician: GUERA KLEIN PLANISHING PRESS OPERATOR =-=-=-=-=-=-=-=-=-=-=-=-=-=- =-=-=-=-=-=-=-=-=-=-=-=-=-=-=-=-=-=-=-=-=-=-=-=-=-= - - - - - [...] Lucas Meek Paperwork: Lucas Meek Cassette: S2;.;Luz MEEK;.;405;[phone] Specimen is labeled: left lateral forearm Received in formalin are two shave biopsies of skin, 1.1 x 0.8 and 1.0 x 0.8 cm. Submitted entirely in 1 cassette [id number];.;Luz MEEK;.;141;[phone] 07/18/2021 Microscopic exam: DIAGNOSIS: A. Shave biopsy skin, left lateral forearm: Squamous cell carcinoma, transected The attending pathologist who signature mansoor ears on this report has reviewed all diagnostic slides and has edited t he gross and/or microscopic portion of this report in rendering the final pathologic diagnosis. [address] [address] CPT: [id number] /emely/ NIURKA eYung MD Signed Jul 20, 2021@08:24 Performing Laboratory: Surgical Pathology Report Performed By: [facility] [CLIA# [id number]] [address] [place] [id number] $FTR - - - - - [...] - - LUCAS MEEK STANDARD FORM 515 ID:[id number] SEX:M :1950 AGE: 71 LOC: [facility] PCP: Ishmael Rahman /emely/ NIURKA Yeung MD Signed: 07/20/2021 08:24 Encounter Notes: All associated encounter notes This section contains the clinical notes associated to the Encounter. Date/Time Encounter Note(s) Provider Source 2021 09:57 AM NON[facility] NOTE: SILVANA VÁZQUEZ [facility] LOCAL TITLE: NonVA Medical Records STANDARD TITLE: NONVA NOTE DATE OF NOTE: 2021@09:57 ENTRY DATE: AUG 15, 2021@11:44:52 AUTHOR: SILVANA VÁZQUEZ EXP COSIGNER: URGENCY: STATUS: COMPLETED Date of Service: 2021 09:57 Place: [facility] Treating Provider: Fabian Cameron MD Event/Procedure: CT Chest w/ Contrast ABNORMAL FINDING PROCEDURE INFORMATION: Exam: CT Chest With Contrast; Diagnostic Exam date and time: 2021 9:21 AM Age: 71 years old Clinical indication: Primary lung adenocarcinoma TECHNIQUE: Imaging protocol: Diagnostic computed tomography of the chest with contrast. Radiation optimization: All CT scans at this facility use at least one of these dose optimization techniques: automated exposure control; mA and/or kV adjustment per patient size (includes targeted e xams where dose is matched to clinical indication); or iterative reconstructio n. Contrast material: OMNIPAQUE 350; Contrast volum e: 90 ml; Contrast route: INTRAVENOUS (IV); COMPARISON: CT CHEST WO CONTRAST 09/03/2020 10:18 AM FINDINGS: Lungs: Persistent volume loss in the right chest again noted. Stable rightward mediastinal shift. Persistent right mago ng volume loss with prominent areas of perihilar consolidation with air bronchograms. Stable right basilar scarring and atelectasis. S table right-sided paraseptal emphysematous changes, unchanged from prior exam. Stable left apical para emphysematous changes, unchange d from prior exam. No suspicious nodules or mass identified within the left lung. Pleural spaces: Stable right-sided superior pleu ral fluid again noted. Heart: Unremarkable. No cardiomegaly. No pericar dial effusion. Aorta: Unremarkable. No aortic aneurysm. Lymph nodes: Unremarkable. No enlarged lymph nod es. Diaphragm: Small hiatal hernia again noted. Adrenal glands: 4.1 x3.1 cm right adrenal mass m easuring 62 Hounsfield units. Round 1.8 cm right adrenal mas s measuring 60 Hounsfield units. This is unchanged from prior e xams. Bones/joints: Multilevel degenerative changes in the spine again noted. Soft tissues: Scarring along the partially visua lized right anterior abdominal wall in the partially visualized upper abdomen, unchanged from prior exam. IMPRESSION: 1.No significant change from prior exam. Stable right thoracic pulmonary volume loss with rightward mediastinal shift. 2.Stable areas of consolidation and atelectasis in the right lung. 3. Stable small right-sided superior pleural flu id again noted. 4.No suspicious pulmonary nodules identified in the left lung. 5.No significant thoracic lymphadenopathy. 6.Stable indeterminate right adrenal masses. Report signed by: Otf Rondon On 2021 11: 22:07 Document sent to [facility] to be scanned. To view this document open the [employer] tools menu and then open the image display viewer. /es/ SILVANA VÁZQUEZ Intelligence Manager Signed: 08/15/2021 12:31
--- OUTSIDE RECORDS SUMMARY | 2022-01-19 07:56 | XMS_ITS | Encounter Summary ---
:1950 Author Organization [facility] Address [address] [place] [id number] Support Name Relationship Address Phone YUSRA MEEK Unavailable [address] [place] [address] YUSRA MEEK Unavailable [address] [place] [address] CLAY MOSLEY Unavailable Unavailable SJ SANTACRUZ Unavailable [...] MEDICARE MEDICARE PART Jun 18, PART A [id number] DO KALYANI PATIENT (WNR) (M) A 2016 13A 1 UGLAS MEDICARE MEDICARE PART Jun 18, PART A [id number] DO KALYANI PATIENT (WNR) (M) A 2017 VH81 2 [place]AS MEDICARE MEDICARE PART Jun 18, PART B [id number] DO KALYANI PATIENT (WNR) (M) B 2017 VH81 2 [place]AS MEDICARE MEDICARE PART Jun 18, PART B [id number] DO KALYANI PATIENT (WNR) (M) B 2016 13A 1 UGLAS UNITED MEDICARE MCR(Jun 18 [id number] Luz MEEK PATIENT HEALTHCARE ADVANTAGE NR) 2021 [id number] 0 UGLAS [facility] (WNR) Selected Encounter This section includes the information on record at [place] for the Encounter. Date/Time Encounter Type Encounter Reason Provider Source Description Sep 05, 2021 INTMD RPR DERMATOLOGY ICD-10-CM SASHA THOMAS 08:00 AM S/TR/EXT C44.629 J 7.6-12.5 Squamous cell carcinoma skin/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, inc shoulder with Provider Comments: Primary squamous cell carcinoma of skin of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 (SNOMED CT [id number] 6) IHE Encounter Template Text not used by [facility] Assessments - Encounter Diagnoses This section includes the primary and secondary diagnoses documented for the Encounter. Date/Time Primary/Secondary Diagnosis Name Provider Source Diagnosis Sep 05, 2021 PRIMARY Squamous cell SASHA THOMAS 06:02 PM carcinoma skin/ J T [facility]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, inc shoulder Plan of Treatment: Future Appointments (+ 6 months) and Future Tests (+/- 45 days) The Plan of Treatment section includes future care activities for the patient from all [place] treatmentfacilities. This section includes future appointments and future orders which are active, pending orscheduled.Future Appointments This section includes appointments that were scheduled to occur 6 months from the date of the Encounter, up to a maximum of 20 appointments. The data comes from all [place] treatment facilities. Appointment Date/Time Appointment Type Appointment Facili ty Name Sep 19, 2021 08:00 AM AMBULATORY - MEDICINE [facility] October 18, 2021 02:00 PM AMBULATORY - MEDICINE [facility] November 15, 2021 10:00 AM AMBULATORY - MEDICINE [facility] Dec 01, 2021 10:30 AM [place]ORY [place]ONE [place] [facility] Dec 06, 2021 11:40 AM AM[place]ORY [place]ICINE [place] [facility] Dec 21, 2021 08:00 AM AMBULATORY - NONE [place] [facility] Jan 06, 2022 02:00 PM [place] [facility] Jan 10, 2022 11:30 AM AMBULATORY - MEDICINE [facility] Jan 24, 2022 08:00 AM [place] [facility] Feb 21, 2022 10:00 AM AMBUL[place]ORY - [place]GERY [place] [facility] Vital Signs: All taken on the encounter date This section contains inpatient and outpatient Vital Signs collected on the date of the Encounter. Date/Time Temperature Pulse Blood Respiratory SP02 Pain Height Weight Tej dy Source Pressure Rate Mass Index Sep 05, 97.7 F 78 139/74 16 /min 95 % 0 275.1 37 WHITE 2021 12:37 /min mm[Hg] lb [facility] Social History: Smoking Status (Most current) and Tobacco Use (All prior to encounter date) This section includes the most current, and the historical, smoking and tobacco-related health factors from the [place] facility where the Encounter took place.Current Smoking Status This section includes the most current smoking, or tobacco-related health factor, from the [place] facility where the Encounter took place. Date/Time Current Smoking Status Comment Facility Apr 01, 2020 01:16 PM QUIT TOBACCO USE 1-7 YEARS AGO [facility] Tobacco Use History This section includes a history of the smoking, or tobacco- related health factors, that were collected on or before the date of the Encounter. The data comes from the [place] facility where the Encounter took place. Date/Time Smoking Status/Tobacco Use Comment [facility] Mar 24, 2020 03:00 PM QUIT TOBACCO USE 1-7 YEARS AGO [facility] Feb 21, 2019 04:11 PM QUIT TOBACCO USE 1-7 YEARS AGO [facility] Feb 20, 2019 03:38 PM QUIT TOBACCO USE 1-7 YEARS AGO [facility] Feb 03, 2019 09:50 AM QUIT TOBACCO USE 1-7 YEARS AGO [facility] May 25, 2016 11:53 PM QUIT TOBACCO USE IN PAST YEAR [facility] May 23, 2016 06:57 PM QUIT TOBACCO USE > 7 YEARS AGO [facility] May 19, 2016 03:55 PM QUIT TOBACCO USE IN PAST YEAR [facility] May 19, 2016 10:29 AM QUIT TOBACCO USE 1-7 YEARS AGO [facility] May 01, 2016 07:26 PM QUIT TOBACCO USE IN PAST YEAR [facility] May 01, 2016 03:11 PM QUIT TOBACCO USE IN PAST YEAR [facility] May 01, 2016 11:19 AM QUIT TOBACCO USE IN PAST YEAR [facility] Mar 16, 2016 12:50 PM V1-PT DECLINES REF TO TOBACCO [facility] CESS [facility] Mar 16, 2016 12:50 [...] the Encounter. The data comes from all [facility] facilities. Date/Time Pathology Report Provider Source Sep 07, 2021 10:54 AM LR SURGICAL PATHOLOGY REPORT: STEFANY MILLER [facility] LOCAL TITLE: LR SURGICAL PATHOLOGY REPORT [facility] STANDARD TITLE: PATHOLOGY REPORT DATE OF NOTE: SEP 07, 2021@10:54:25 ENTRY DATE: SEP 07, 2021@10:54:25 AUTHOR: NIURKA MILLER EXP COSIGNER: URGENCY: STATUS: COMPLETED $APHDR Reporting Lab: [facility] [CLIA# [id number]] [address] [place] [address] - - - - - - [...] - PATHOLOGY REPORT Accession No. [id number] - - - - - - - - - - - - - - - - - - - - - - - - - - - - - - - - - - - - - - - - $TEXT Submitted by: JULEE RODGERS Date obtained: Sep 05, 2021 12:10 - - - - - - - - - - - - - - - - - - - - - - - - - - - - - - - - - - - - - - - - Specimen (Received Sep 05, 2021 12:11): SKIN, WLE OF BIOPSY PROVEN SCC; LEFT LATERAL FOR EARM - - - - - - - - - - - - - - - - - - - - - - - - - - - - - - - - - - - - - - - - BRIEF CLINICAL HISTORY: - - - - - - - - - - - - - - - - - - - - - - - - - - - - - - - - - - - - - - - - PREOPERATIVE DIAGNOSIS: - - - - - - - - - - - - - - - - - - - - - - - - - - - - - - - - - - - - - - - - OPERATIVE FINDINGS: - - - - - - - - - - - - - - - - - - - - - - - - - - - - - - - - - - - - - - - - POSTOPERATIVE DIAGNOSIS: Surgeon/physician: JULEE RODGERS =-=-=-=-=-=-=-=-=-=-=-=-=-=- =-=-=-=-=-=-=-=-=-=-=-=-=-=-=-=-=-=-=-=-=-=-=-=-=-= - - - - - - - - - - - - - - - - - - - - - - - - - - - - - - - - - - - - - - - - PATHOLOGY REPORT Accession No. SP [id number] - - - - - - - - - - - - - - - - - - - - - - - - - - - - - - - - - - - - - - - - GROSS DESCRIPTION: The specimen is received in formalin, labelled with the patient name, , SSN, and left forearm and contains an or iented elliptical excision of boyd hair-bearing skin measuring 8 x 2.5 x 0. 5 cm, with one orienting suture designated by the grosser as 12 oclock. There is a central 1.1 cm elevated brown lesion and another elevated boyd 0.4 x 0.4 cm papule near the 6 oclock tip (submitted in A11). 12 oclock to 6 oclock is inked blue and 6 oclock to 12 oclock is inked green. Rafi scott submitted in 11 blocks. A1: 12 oclock tip A2: 6 oclock tip A3-A11: remainder of specimen, submitted from [facility] to 6 oclock 09/05/21 Microscopic exam: DIAGNOSIS: A. Left lateral forearm, excision: Residual squamous cell carcinoma Negative resection margins Note: A focus suggestive of seborrheic keratosi s is also present. The attending pathologist who signature mansoor ears on this report has reviewed all diagnostic slides and has edited t he gross and/or microscopic portion of this report in rendering the final pathologic diagnosis. [address] [address] CPT: [id number] /emely/ NIURKA Yeung MD Signed Sep 07, 2021@10:54 Performing Laboratory: Surgical Pathology Report Performed By: C[facility] MONTOYA [facility] [CLIA# [id number]] [address] [place] [address] $FTR - - - - - - - - - - - - - - - - - - - - - - - - - - - - - - - - - - - - - - - - (End of report) NIURKA MILLER MD Date Sep 07, 2021 - - - - - - - - - - - - - - - - - - - - - - - - - - - - - - - - - - - - - - - - LUCAS MEEK STANDARD FORM 515 ID:[id number] SEX:M :1950 AGE: 71 LOC: [facility] PCP: Farzaneh Rahman /emely/ NIURKA Yeung MD Signed: 09/07/2021 10:54 Encounter Notes: All associated encounter notes This section contains the clinical notes associated to the Encounter. Date/Time Encounter Note(s) Provider Source Sep 08, 2021 11:54 AM LETTERS: JULEE RODGERS LOCAL TITLE: Dermatology Patient Letter [facility] STANDARD TITLE: LETTERS DATE OF NOTE: SEP 08, 2021@11:54 ENTRY DATE: SEP 08, 2021@11:54:47 AUTHOR: JULEE RODGERS EXP COSIGNER: URGENCY: STATUS: COMPLETED SEP 08, 2021 MR. LUCAS MEEK [address] [place] [address] Dear Mr. Meek: It appears after examination of the skin removed from your left forearm that all skin cancer was removed. I hope you continue to heal well. We should continue to monito r for new lesions or possible recurrences. If you do not already have an appointment scheduled, pleas e call the number below to schedule an appointment time with Dermatology . If you have any questions, please call Shiela camarena at [phone] x [phone]. Sincerely, Julee Rodgers MD Resident Physician Dermatology Sep 04, 2021 08:44 PM DERMATOLOGY NOTE: JULEE RODGERS [place] LOCAL TITLE: Dermatology Note [facility] STANDARD TITLE: DERMATOLOGY NOTE DATE OF NOTE: SEP 04, 2021@20:44 ENTRY DATE: SEP 04, 2021@20:44:45 AUTHOR: JULEE RODGERS EXP COSIGNER: SASHA THOMAS URGENCY: STATUS: COMPLETED Dermatology Note Has ADDENDA Procedure Note: Skin excision with intermediate repair Surgeons: Diagnosis: SCC Accession No. [id number] Site: left lateral forearm 1. Original lesion size, 1.8 cm 2: Lesion with margins, 3.0 cm 3. Intermediate repair, 10 cm DIAGNOSIS: A. Shave biopsy skin, left lateral forearm: Squamous cell carcinoma, transected Responses to pre-operative survey: - Any allergy to latex, iodine, lidocaine, or ep inephrine? [] - History of joint replacements? [right knee, 13 years ago] - History of artificial heart valve? [] - Pacemaker or defibrillator? [] - History of need for antibiotics prior to [place] work? [] - Patient on blood thinners? (aspirin, Coumadin, Plavix, other)? [] - Other indication for antibiotic therapy? [] DENIES THOSE NOT MARKED ABOVE [X] ROS: Patient denies recent illness, fevers, nigh t sweats, unexplained weight loss, shortness of breath, recent infecion. Vital signs: T 97.7 HR 78 RR 16 BP 139/74 PROCEDURE TIME OUT Patient identifiers confirmed with patient: Rocio ent Name, SS#, Date of Confirmed patient allergies: RADIOLOGICAL/CONTRAST MEDIA MAY 28, 2017 (observ ed) Symptoms: None listed LISINOPRIL NOV 30, 2016 (observed) Symptoms: LIP SWELLING Reviewed planned procedure with patient. Consent form completed, reviewed with patient and signed. Procedure site identified and marked. Site photo graphs, relevant notes and original pathology report reviewed (where releva nt)and checked with site identified and marked. Need for prophylactic ant ibiotics assessed. Discussed treatment, expectations, need for foll ow-up. Informed consent obtained. Sterile skin prep performed. L ocal anesthesia: buffered 1% lidocaine with 1/100,000 epinephrine. The excision was designed with clear-appearing m argins of at least 0.5 cm in order to remove the lesion and any subclinical e xtension. The lesion was excised in an eliptical fashion down to the leve l of subcutaneous fat. Wound margins were undermined using sharp dissection i n order to mobilize tissue for closure. Hemostasis was obtained with (X) minor electrodessication and/or ( ) AlCl and/or ( ) ve ssel ligation. A layered closure was perfor med. Multiple buried absorbable sutures were placed to reappose deep tissue (4-0, vicryl). The epide rmis and dermis were then reapposed using interupted/running sutures(4-0, prolene). There were no complications; the patient tolerat ed the procedure well. Specimen to Pathology. Wound dressed; wound care and activity restrictions reviewed. Suture removal 14 days. Pt may have sutures jevon segundo [place]. I have seen and discussed the patient with my terry pervising practitioner, Dr. Thomas who agrees with my assessment and p chikis. /charmaine Rodgers MD Resident Physician Signed: 09/05/2021 18:02 /charmaine THOMAS DERMATOLOGY ATTENDING PHYSICIAN Cosigned: 09/09/2021 15:34 09/09/2021 ADDENDUM STATUS: COMPLETED I assisted and supervised the entire procedure. /charmaine THOMAS DERMATOLOGY ATTENDING PHYSICIAN Signed: 09/09/2021 15:38 Sep 04, 2021 08:43 PM DERMATOLOGY TELEPHONE ENCOUNTER NOTE: Teresita RODGERS [facility] LOCAL TITLE: Telephone Note/Dermatology [facility] STANDARD TITLE: DERMATOLOGY TELEPHONE ENCOUNTER NOTE DATE OF NOTE: SEP 04, 2021@20:43 ENTRY DATE: SEP 04, 2021@20:43:50 AUTHOR: JULEE RODGERS EXP COSIGNER: SASHA THOMAS URGENCY: STATUS: COMPLETED Called patient to confirm appointment, no answer LVM. Pt scheduled for [facility]LE 09/05/21 at 8AM. DIAGNOSIS: A. Shave biopsy skin, left lateral forearm: Squamous cell carcinoma, transected /charmaine Rodgers MD Resident Physician Signed: 09/04/2021 20:44 /charmaine THOMAS DERMATOLOGY ATTENDING PHYSICIAN Cosigned: 09/04/2021 23:09
--- OUTSIDE RECORDS SUMMARY | 2022-01-19 07:56 | XMS_ITS | Encounter Summary ---
:1950 Author Organization [facility] Address [address] [place] [address] Support Name Relationship Address Phone YUSRA MEEK Unavailable [address] [place] [address] YUSRA MEEK Unavailable [address] [place] [address] CLAY MOSLEY Unavailable Unavailable SJ SANTACRUZ Unavailable [...] MEDICARE MEDICARE PART Jun 18, PART A [id number] DO KALYANI PATIENT (WNR) (M) A 2016 13A 1 U[place]AS MEDICARE MEDICARE PART Jun 18, PART B [id number] DO KALYANI PATIENT (WNR) (M) B 2016 13A 1 [place]AS MEDICARE MEDICARE PART Jun 18, PART A [id number] KALYANIDO PATIENT (WNR) (M) A 2017 VH81 2 [place]AS MEDICARE MEDICARE PART Jun 18, PART B [id number] DO KALYANI PATIENT (WNR) (M) B 2017 VH81 2 [place]AS UNITED MEDICARE MCR(Jun 18 [id number] Luz MEEK PATIENT HEALTHCARE ADVANTAGE NR) 2021 37 0 [facility] (WNR) Selected Encounter This section includes the information on record at [place] for the Encounter. Date/Time Encounter Type Encounter Reason Provider Source Description Aug 22, 2021 Outpatient TELEPHONE/MEDICIN ICD-10-CM Z71.89 Lei THOMAS 03:03 PM Encounter E Other specified J counseling with Provider Comments: Counseling,Oth Specified IHE Encounter Template Text not used by [facility] Assessments - Encounter Diagnoses This section includes the primary and secondary diagnoses documented for the Encounter. Date/Time Primary/Secondary Diagnosis Name Provider Source Diagnosis Aug 22, 2021 PRIMARY Other specified JULEE RODGERS 03:03 PM counseling [facility] Plan of Treatment: Future Appointments (+ 6 months) and Future Tests (+/- 45 days) The Plan of Treatment section includes future care activities for the patient from all [place] [facility]. This section includes future appointments and future orders which are active, pending orscheduled.Future Appointments This section includes appointments that were scheduled to occur 6 months from the date of the Encounter, up to a maximum of 20 appointments. The data comes from all [place] treatment facilities. Appointment Date/Time Appointment Type Appointment Facili ty Name Sep 05, 2021 08:00 AM AMBULATORY - [place] [facility] Sep 19, 2021 08:00 AM AMBULATORY - MEDICINE [facility] October 18, 2021 02:00 PM AMBULATORY - MEDICINE [facility] November 15, 2021 10:00 AM AMBULATORY - MEDICINE [facility] Dec 01, 2021 10:30 AM [place]ORY - NONE [place] [facility] Dec 06, 2021 11:40 AM AM[place]ORY [place]IC[place] [facility] Dec 21, 2021 08:00 AM AMBULATORY - NONE [place] [facility] Jan 06, 2022 02:00 PM [place] [facility] Jan 10, 2022 11:30 AM AMBULATORY - MEDICINE [facility] Jan 24, 2022 08:00 AM [place] [facility] Feb 21, 2022 10:00 AM AMBULATORY - SURGERY [place] [facility] Social History: Smoking Status (Most current) and [...] QUIT TOBACCO USE 1-7 YEARS AGO [facility] Tobacco Use History This section includes a history of the smoking, or tobacco- related health factors, that were collected on or before the date of the Encounter. The data comes from the [place] facility where the Encounter took place. Date/Time Smoking Status/Tobacco Use Comment [facility] Mar 24, 2020 03:00 PM QUIT TOBACCO USE 1-7 YEARS AGO [facility] Feb 21, 2019 04:11 PM QUIT TOBACCO USE 1-7 YEARS AGO [facility] Feb 20, 2019 03:38 PM QUIT TOBACCO USE 1-7 YEARS AGO [facility] Feb 03, 2019 09:50 AM QUIT TOBACCO USE 1-7 YEARS AGO [facility] May 25, 2016 11:53 PM QUIT TOBACCO USE IN PAST YEAR [facility] May 23, 2016 06:57 PM QUIT TOBACCO USE > 7 YEARS AGO [facility] May 19, 2016 03:55 PM QUIT TOBACCO USE IN PAST YEAR [facility] May 19, 2016 10:29 AM QUIT TOBACCO USE 1-7 YEARS AGO [facility] May 01, 2016 07:26 PM QUIT TOBACCO USE IN PAST YEAR [facility] May 01, 2016 03:11 PM QUIT TOBACCO USE IN PAST YEAR [facility] May 01, 2016 11:19 AM QUIT TOBACCO USE IN PAST YEAR [facility] Mar 16, 2016 12:50 PM V1-PT DECLINES REF TO TOBACCO [facility] CESS [facility] Mar 16, 2016 12:50 PM V1-PT THINKING ABOUT QUIT [facility] TOBACCO USE Aug 12, 2015 08:48 AM CURRENT SMOKER [facility]ates [facility] Pathology Reports: +/- 30 days of [...] treatment facilities. Date/Time Pathology Report Provider Source Sep 07, 2021 10:54 AM LR SURGICAL PATHOLOGY REPORT: STEFANY MILLER [facility] LOCAL TITLE: LR SURGICAL PATHOLOGY REPORT [facility] STANDARD TITLE: PATHOLOGY REPORT DATE OF NOTE: SEP 07, 2021@10:54:25 ENTRY DATE: SEP 07, 2021@10:54:25 AUTHOR: NIURKA MILLER EXP COSIGNER: URGENCY: STATUS: COMPLETED $APHDR Reporting Lab: [facility] [CLIA# [id number]] [address] [place] [address] - - - - - - [...] - - - POSTOPERATIVE DIAGNOSIS: Surgeon/physician: JULEE Rehman LY =-=-=-=-=-=-=-=-=-=-=-=-=-=- =-=-=-=-=-=-=-=-=-=-=-=-=-=-=-=-=-=-=-=-=-=-=-=-=-= - - - - - [...] tip A3-A11: remainder of specimen, submitted from 1 2 to 6 oclock 09/05/21 Microscopic exam: DIAGNOSIS: [...] in rendering the final pathologic diagnosis. [address] [place] [address] CPT: [id number] /es/ NIURKA Yeung MD Signed Sep 07, 2021@10:54 Performing Laboratory: Surgical Pathology Report Performed By: [facility] [CLIA# [id number]] [address] [place] [address] $FTR - - - - - [...] - - LUCAS MEEK STANDARD FORM 515 ID:[id number] SEX:M :1950 AGE: 71 LOC: [facility] PCP: Farzaneh Rahman /emely/ NIURKA Yeung MD Signed: 09/07/2021 10:54 Encounter Notes: All associated encounter notes This section contains the clinical notes associated to the Encounter. Date/Time Encounter Note(s) Provider Source Aug 22, 2021 03:03 PM DERMATOLOGY TELEPHONE ENCOUNTER NOTE: Teresita RODGERS [facility] LOCAL TITLE: Telephone Note/Dermatology STANDARD TITLE: DERMATOLOGY TELEPHONE ENCOUNTER NOTE DATE OF NOTE: AUG 22, 2021@15:03 ENTRY DATE: AUG 22, 2021@15:03:26 AUTHOR: JULEE RODGERS EXP COSIGNER: SASHA THOMAS URGENCY: STATUS: COMPLETED Telephone Note/Dermatology Has ADDENDA Called patient to reschedule WLE from 9AM to 8AM as 9AM is unavailable. Patient agreed to schedule change. C C'ing MSA to add pt to [facility] for 09/05 at 8AM. Instructed patient to arrive 15 minutes ear ly. All questions answered. Pre-Sx Checklist: 1. Allergy to: a. Latex - no b. Iodine - no c. Lidocaine - no d. Epinephrine - no 2. Joint replacements - right knee(early 1999s) 3. Artificial Heart Valves - no 4. Pacemaker/Defibrillator - no 5. Abx prior to Dental Work - no 6. Blood Thinners - no /emely/ Julee Rodgers MD Resident Physician Signed: 08/22/2021 15:04 /emely/ SASHA THOMAS DERMATOLOGY ATTENDING PHYSICIAN Cosigned: 09/01/2021 17:05 Receipt Acknowledged By: 08/22/2021 15:40 /charmaine VILLANUEVA 08/22/2021 15:32 /emely/ YAYA Rajan MSA 08/22/2021 ADDENDUM STATUS: COMPLETED Left voice message esperanza sumner return call to Telephone Ext.: [phone]. This patient needs to be scheduled for their nik m surg res appt. Letter sent. /emely/ YAYA Rajan MSA Signed: 08/22/2021 15:38 09/01/2021 ADDENDUM STATUS: COMPLETED It does not appear Mr Meek has been scheduled yet in [place] for 09/05/21 DERM SURG RES 8am? /emely/ SASHA LONGIDE DERMATOLOGY ATTENDING PHYSICIAN Signed: 09/01/2021 17:15 Receipt Acknowledged By: 09/02/2021 08:20 /emely/ ZAK VILLANUEVA * AWAITING SIGNATURE * JULEE RODGERS * AWAITING SIGNATURE * GUERA KLEIN 09/02/2021 ADDENDUM STATUS: COMPLETED Pt is scheduled. /emely/ ZAK VILLANUEVA Signed: 09/02/2021 08:20
--- OUTSIDE RECORDS SUMMARY | 2022-01-19 07:57 | XMS_ITS | Encounter Summary ---
:1950 Author Organization [facility] Address [address] [place] [address] Support Name Relationship Address Phone YUSRA AUGUSTE Unavailable [address] [place] [facility] [address] YUSRA AUGUSTE Unavailable [address] [place] [facility] [address] CLAY MOSLEY Unavailable Unavailable SJ SANTACRUZ Unavailable [...] MEDICARE MEDICARE PART Jun 18, PART A [id number] AUGUSTE DO PATIENT (WNR) (M) A 2016 13A 1 UGLAS MEDICARE MEDICARE PART Jun 18, PART B [id number] AUGUSTE DO PATIENT (WNR) (M) B 2016 13A 1 UGLAS MEDICARE MEDICARE PART Jun 18, PART A [id number] KALYANIDO PATIENT (WNR) (M) A 2017 VH81 2 UGLAS MEDICARE MEDICARE PART Jun 18, PART B [id number] KALYANIDO PATIENT (WNR) (M) B 2017 VH81 2 LAS UNITED MEDICARE MCR(Jun [id number] Luz AUGUSTE PATIENT HEALTHCARE ADVANTAGE NR) 2021 37 0 [facility] (WNR) Selected Encounter This section includes the information on record at [place] for the Encounter. Date/Time Encounter Type Encounter Reason Provider Source Description Sep 07, 2021 10:54 Outpatient EVENT (HISTORICAL) NIURKA MILLER AM Encounter IHE Encounter Template Text not used by [place] Plan of Treatment: Future Appointments (+ 6 months) and Future Tests (+/- 45 days) The Plan of Treatment section includes future care activities for the patient from all [place] [facility]. This section includes future appointments and future orders which are active, pending orscheduled.Future Appointments This section includes appointments that were scheduled to occur 6 months from the date of the Encounter, up to a maximum of 20 appointments. The data comes from all [place] treatment facilities. Appointment Date/Time Appointment Type Appointment Facili ty Name Sep 19, 2021 08:00 AM AMBULATORY - MEDICINE [facility] October 18, 2021 02:00 PM AMBULATORY - MEDICINE [facility] November 15, 2021 10:00 AM AMBULATORY - MEDICINE [facility] Dec 01, 2021 10:30 AM [place] [facility] Dec 06, 2021 11:40 AM [place] [facility] Dec 21, 2021 08:00 AM [place]ORY - NONE [place] [facility] Jan 06, 2022 02:00 PM [place] [facility] Jan 10, 2022 11:30 AM AM[facility]ULATORY - MEDICINE [facility] Jan 24, 2022 08:00 AM [place] [facility] Feb 21, 2022 10:00 AM [place] [facility] Social History: Smoking Status (Most current) and Tobacco Use (All prior to encounter date) This section includes the most current, and the historical, smoking and tobacco-related health factors from the [place] facility where the Encounter took place.Current Smoking Status This section includes the most current smoking, or tobacco-related health factor, from the [place] facility where the Encounter took place. Date/Time Current Smoking Status [facility] Facility Apr 01, 2020 01:16 PM QUIT TOBACCO USE 1-7 YEARS AGO [facility] Tobacco Use History This section includes a history of the smoking, or tobacco- related health factors, that were collected on or before the date of the Encounter. The data comes from the [place] facility where the Encounter took place. Date/Time Smoking Status/Tobacco Use Comment Facil ity Mar 24, 2020 03:00 PM QUIT TOBACCO USE 1-7 YEARS AGO [facility] Feb 21, 2019 04:11 PM QUIT TOBACCO USE 1-7 YEARS AGO [facility] Feb 20, 2019 03:38 PM QUIT [...] PAST YEAR [facility] May 01, 2016 03:11 PM QUIT TOBACCO USE IN PAST YEAR [facility] May 01, 2016 11:19 AM QUIT TOBACCO USE IN PAST YEAR [facility] Mar 16, 2016 12:50 PM V1-PT DECLINES REF TO TOBACCO [facility] CESS PRGM Mar 16, 2016 12:50 PM V1-PT THINKING ABOUT QUIT [facility] TOBACCO USE Aug 12, 2015 08:48 [...] the Encounter. The data comes from all [place] treatment facilities. Date/Time Pathology Report Provider Source Sep 07, 2021 10:54 AM LR SURGICAL PATHOLOGY REPORT: STEFANY MILLER [facility] LOCAL TITLE: LR SURGICAL PATHOLOGY REPORT [facility] STANDARD TITLE: PATHOLOGY REPORT DATE OF NOTE: SEP 07, 2021@10:54:25 ENTRY DATE: SEP 07, 2021@10:54:25 AUTHOR: NIURKA MILLER EXP COSIGNER: URGENCY: STATUS: COMPLETED $APHDR Reporting Lab: [facility] [CLIA# [id number]] [address] [facility] [place] [address] - - - - - - [...] - - - - $TEXT Submitted by: SHADI RODGERS Date obtained: Sep 05, 2021 12:10 [...] - - - - POSTOPERATIVE DIAGNOSIS: Surgeon/physician: SHADI RODGERS =-=-=-=-=-=-=-=-=-=-=-=-=-=- =-=-=-=-=-=-=-=-=-=-=-=-=-=-=-=-=-=-=-=-=-=-=-=-=-= - - - - [...] report in rendering the final pathologic diagnosis. [address] [address] CPT: 58400 /es/ NIURKA Yeung MD Signed Sep 07, 2021@10:54 Performing Laboratory: Surgical Pathology Report Performed By: CAREY MONTOYA [facility] [CLIA# [id number]] [address] [place] [address] $FTR - - - - - [...] - - - - - - - AUGUSTELUCAS Lei STANDARD FORM 515 ID:[id number] SEX:M :1950 AGE: 71 LOC: [facility] PCP: Farzaneh Rahman /emely/ NIURKA MILLER Staff Signed: 09/07/2021 10:54 Encounter Notes: All associated encounter notes This section contains the clinical notes associated to the Encounter. Date/Time Encounter Note(s) Provider Source Sep 07, 2021 10:54 AM PATHOLOGY REPORT: NIURKA MILLER [facility] LOCAL TITLE: SURGICAL PATHOLOGY REPORT [facility] STANDARD TITLE: PATHOLOGY REPORT DATE OF NOTE: SEP 07, 2021@10:54:25 ENTRY DATE: SEP 07, 2021@10:54:25 AUTHOR: NIURKA MILLER EXP COSIGNER: URGENCY: STATUS: COMPLETED $APHDR Reporting Lab: [facility] [CLIA# [id number]] [address] [place] [address] - - - - - - [...] - - - - $TEXT Submitted by: SHADI RODGERS Date obtained: Sep 05, 2021 12:10 [...] - - - - POSTOPERATIVE DIAGNOSIS: Surgeon/physician: SHADI RODGERS =-=-=-=-=-=-=-=-=-=-=-=-=-=- =-=-=-=-=-=-=-=-=-=-=-=-=-=-=-=-=-=-=-=-=-=-=-=-=-= - - - - [...] tip A3-A11: remainder of specimen, submitted from 2 to 6 oclock 09/05/21 Microscopic exam: [...] report in rendering the final pathologic diagnosis. [address] [address] CPT: 47005 /emely/ NIURKA Yeung MD Signed Sep 07, 2021@10:54 Performing Laboratory: Surgical Pathology Report [facility]: [facility] [CLIA# [id number]] [address] [place] [address] $FTR - - - - - [...] - - - - - - LUCAS AUGUSTE STANDARD FORM 515 ID:[id number] SEX:M :1950 AGE: 71 LOC: [facility] PCP: Farzaneh Rahman /charmaine Yeung MD Signed: 09/07/2021 10:54
--- OUTSIDE RECORDS SUMMARY | 2022-01-19 07:57 | XMS_ITS | Encounter Summary ---
:1950 Author Organization [facility] Address [address] [place] [address] Support Name Relationship Address Phone YUSRA AUGUSTE Unavailable [address] [place] [address] YUSRA AUGUSTE Unavailable [address] [place] [address] CLAY MOSLEY Unavailable Unavailable SJ SANTACRUZ Unavailable [...] MEDICARE MEDICARE PART Jun 18, PART A [id number] DO KALYANI PATIENT (WNR) (M) A 2016 13A 1 UGLAS MEDICARE MEDICARE PART Jun 18, PART A [id number] AUGUSTE DO PATIENT (WNR) (M) A 2017 VH81 2 [place]AS MEDICARE MEDICARE PART Jun 18, PART B [id number] KALYANIDO PATIENT (WNR) (M) B 2016 13A 1 [place]AS MEDICARE MEDICARE PART Jun 18, PART B [id number] KALYANIDO PATIENT (WNR) (M) B 2017 VH81 2 LAS UNITED MEDICARE MCR(Jun 18 [id number] Luz AUGUSTE PATIENT HEALTHCARE ADVANTAGE NR) 2021 37 0 [facility] (WNR) Selected Encounter This section includes the information on record at [place] for the Encounter. Date/Time Encounter Type Encounter Description Reason Provider Source Sep 05, 2021 08:07 Outpatient Encounter EVENT (HISTORICAL) AM IHE Encounter Template Text not used by [place] Plan of Treatment: Future Appointments (+ 6 months) and Future Tests (+/- 45 days) The Plan of Treatment section includes future care activities for the patient from all [place] [facility]. This section includes future appointments and future orders which are active, pending orscheduled.Future Appointments This section includes appointments that were scheduled to occur 6 months from the date of the Encounter, up to a maximum of 20 appointments. The data comes from all [place] treatment facilities. Appointment Date/Time Appointment Type Appointment Facili ty Name Sep 19, 2021 08:00 AM AMBULATORY - MEDICINE [facility] October 18, 2021 02:00 PM AMBULATORY - MEDICINE [facility] November 15, 2021 10:00 AM AMBULATORY - MEDICINE [facility] Dec 01, 2021 10:30 AM [place]ATORY - NONE [place] [facility] Dec 06, 2021 11:40 AM [place] [facility] Dec 21, 2021 08:00 AM AMBULATORY - NONE [place] [facility] Jan 06, 2022 02:00 PM [place] [facility] Jan 10, 2022 11:30 AM [facility] Jan 24, 2022 08:00 AM [place] [place] [facility] Feb 21, 2022 10:00 AM [place] [place] [facility] Vital Signs: All taken on the encounter date This section contains inpatient and outpatient Vital Signs collected on the date of the Encounter. Date/Time Temperature Pulse Blood Respiratory SP02 Pain Height Weight Tej dy Source Pressure Rate Mass Index Sep 05, 97.7 F 78 139/74 16 /min 95 % 0 275.1 37 WHITE 2021 12:37 /min mm[Hg] lb [facility] Social History: Smoking Status (Most current) and Tobacco Use (All prior to encounter date) This section includes the most current, and the historical, smoking and tobacco-related health factors from the [place] facility where the Encounter took place.Current Smoking Status This section includes the most current smoking, or tobacco-related health factor, from the [place] facility where the Encounter took place. Date/Time Current Smoking Status Comment Facility Apr 01, 2020 01:16 PM QUIT TOBACCO USE 1-7 YEARS AGO [facility] Tobacco Use History This section includes a history of the smoking, or tobacco- related health factors, that were collected on or before the date of the Encounter. The data comes from the [place] facility where the Encounter took place. Date/Time Smoking Status/Tobacco Use Comment [facility] Mar 24, 2020 03:00 PM QUIT TOBACCO USE 1-7 YEARS AGO [facility] Feb 21, 2019 04:11 PM QUIT [...] 2015 08:48 AM CURRENT SMOKER [facility] Pathology Reports: +/- 30 days of the [...] the Encounter. The data comes from all [place] treatment facilities. Date/Time Pathology Report Provider Source Sep 07, 2021 10:54 AM LR SURGICAL PATHOLOGY REPORT: STEFANY MILLER [facility] LOCAL TITLE: LR SURGICAL PATHOLOGY REPORT [facility] STANDARD TITLE: PATHOLOGY REPORT DATE OF NOTE: SEP 07, 2021@10:54:25 ENTRY DATE: SEP 07, 2021@10:54:25 AUTHOR: NIURKA MILLER EXP COSIGNER: URGENCY: STATUS: COMPLETED $APHDR Reporting Lab: [facility] [CLIA# [id number]] [address] [place] [address] - - - - - - [...] - - - POSTOPERATIVE DIAGNOSIS: Surgeon/physician: SHADI Rehman LY =-=-=-=-=-=-=-=-=-=-=-=-=-=- =-=-=-=-=-=-=-=-=-=-=-=-=-=-=-=-=-=-=-=-=-=-=-=-=-= - - - [...] report in rendering the final pathologic diagnosis. [address] [place] [id number] CPT: 21002 /es/ NIURKA Yeung MD Signed Sep 07, 2021@10:54 Performing Laboratory: Surgical Pathology Report Performed By: [facility] [CLIA# [id number]] [address] [place] [facility] [place] [address] $FTR - - - - - [...] - - LUCAS AUGUSTE STANDARD FORM 515 ID:[id number] SEX:M :1950 AGE: 71 LOC: [facility] PCP: Farzaneh Rahman /emely/ NIURKA Yeung MD Signed: 09/07/2021 10:54
--- OUTSIDE RECORDS SUMMARY | 2022-01-19 07:58 | XMS_ITS | Encounter Summary ---
:1950 Author Organization [facility] Address [address] [place] [address] Support Name Relationship Address Phone YUSRA AUGUSTE Unavailable [address] [place] [address] YUSRA AUGUSTE Unavailable [address] [place] [address] CLAY MOSLEY Unavailable Unavailable SJ SANTACRUZ Unavailable [...] MEDICARE MEDICARE PART Jun 18, PART A [id number] DO KALYANI PATIENT (WNR) (M) A 2016 13A 1 UGLAS MEDICARE MEDICARE PART Jun 18, PART A [id number] KALYANIDO PATIENT (WNR) (M) A 2017 VH81 2 [place] MEDICARE MEDICARE PART Jun 18, PART B [id number] KALYANIDO PATIENT (WNR) (M) B 2017 VH81 2 [place]AS MEDICARE MEDICARE PART Jun 18, PART B [id number] KALYANIDO PATIENT (WNR) (M) B 2016 13A 1 U[place]AS UNITED MEDICARE MCR(W Jun 18 [id number] Luz AUGUSTE PATIENT HEALTHCARE ADVANTAGE NR) 2021 37 0 [facility]AS [facility] (WNR) Selected Encounter This section includes the information on record at [place] for the Encounter. Date/Time Encounter Type Encounter Description Reason Provider Source Sep 13, 2021 03:44 Outpatient Encounter ADMIN PAT ACTIVOCTAVIO PM (DONALD) CORNELIUS Encounter Template Text not used by [place] Plan of Treatment: Future Appointments (+ 6 months) and Future Tests (+/- 45 days) The Plan of Treatment section includes future care activities for the patient from all [place] [facility] This section includes future appointments and future orders which are active, pending orscheduled.Future Appointments This section includes appointments that were scheduled to occur 6 months from the date of the Encounter, up to a maximum of 20 appointments. The data comes from all [place] treatment facilities. Appointment Date/Time Appointment Type Appointment Facili ty Name Sep 19, 2021 08:00 AM AMBULATORY - MEDICINE [facility] October 18, 2021 02:00 PM AMBULATORY - MEDICINE [facility] November 15, 2021 10:00 AM AMBULATORY - MEDICINE [facility] Dec 01, 2021 10:30 AM [place] [facility] Dec 06, 2021 11:40 AM [place] [facility] Dec 21, 2021 08:00 AM [place] NONE [place] [facility] Jan 06, 2022 02:00 PM [place] [facility] Jan 10, 2022 11:30 AM [facility] Jan 24, 2022 08:00 AM [place] [facility] Feb 21, 2022 10:00 AM [place] [facility] Social History: Smoking Status (Most [...] Encounter took place. Date/Time Current Smoking Status [facility] Facility Apr 01, 2020 01:16 PM QUIT TOBACCO USE 1-7 YEARS AGO [facility] Tobacco Use History This section includes a history of the smoking, or tobacco- related health factors, that were collected on or before the date of the Encounter. The data comes from the [place] facility where the Encounter took place. Date/Time Smoking Status/Tobacco Use Comment Facil ity Mar 24, 2020 03:00 PM QUIT TOBACCO USE 1-7 YEARS AGO [facility] Feb 21, 2019 04:11 PM QUIT TOBACCO USE 1-7 YEARS AGO [facility] Feb 20, 2019 03:38 PM QUIT TOBACCO USE 1-7 YEARS AGO [facility] Feb 03, 2019 09:50 AM QUIT TOBACCO USE 1-7 YEARS AGO [facility] May 25, 2016 11:53 PM QUIT TOBACCO USE IN PAST YEAR [facility] May 23, 2016 06:57 PM QUIT TOBACCO USE > 7 YEARS AGO [facility] May 19, 2016 03:55 PM QUIT TOBACCO USE IN PAST YEAR [facility] May 19, 2016 10:29 AM QUIT TOBACCO USE 1-7 YEARS AGO [facility] May 01, 2016 07:26 PM QUIT TOBACCO USE IN PAST YEAR [facility] May 01, 2016 03:11 PM QUIT TOBACCO USE IN PAST YEAR [facility] May 01, 2016 11:19 AM QUIT TOBACCO USE IN PAST YEAR [facility] Mar 16, 2016 12:50 PM V1-PT DECLINES REF TO TOBACCO [facility] CESS PRGM Mar 16, 2016 12:50 PM V1-PT THINKING ABOUT QUIT [facility] TOBACCO USE Aug 12, 2015 08:48 AM CURRENT SMOKER [facility] Pathology Reports: +/- 30 days of the [...] the Encounter. The data comes from all [place] treatment facilities. Date/Time Pathology Report Provider Source Sep 07, 2021 10:54 AM LR SURGICAL PATHOLOGY REPORT: STEFANY MILLER [facility] [place] LOCAL TITLE: LR SURGICAL PATHOLOGY REPORT [facility] STANDARD TITLE: PATHOLOGY REPORT DATE OF NOTE: SEP 07, 2021@10:54:25 ENTRY DATE: SEP 07, 2021@10:54:25 AUTHOR: NIURKA MILLER EXP COSIGNER: URGENCY: STATUS: COMPLETED $APHDR Reporting Lab: [facility] [CLIA# [id number]] [address] [place] [facility] [address] - - - - - - [...] report in rendering the final pathologic diagnosis. [address] [address] CPT: [id number] /es/ NIURKA Yeung MD Signed Sep 07, 2021@10:54 Performing Laboratory: Surgical Pathology Report Performed By: C[facility]Y MONTOYA [facility] [CLIA# [id number]] [address] [place] [address] $FTR - - - - - [...] - - LUCAS AUGUSTE STANDARD FORM 515 ID:[id number] SEX:M :1950 AGE: 71 LOC: [facility] PCP: Farzaneh patricia/ NIURKA Yeung MD Signed: 09/07/2021 10:54 Encounter Notes: All associated encounter notes This section contains the clinical notes associated to the Encounter. Date/Time Encounter Note(s) Provider Source Sep 13, 2021 03:44 PM ADMINISTRATIVE NOTE: JANE PAREKH [facility] LOCAL TITLE: Has Admin Note [facility] [place] TITLE: ADMINISTRATIVE NOTE DATE OF NOTE: SEP 13, 2021@15:44 ENTRY DATE: SEP 13, 2021@15:45:21 AUTHOR: JANE PAREKH EXP COSIGNER: URGENCY: STATUS: COMPLETED Reason for call Clinic Name: [facility] Nurse RTC 1st call- on ROM /emely/ JANE PAREKH Signed: 09/13/2021 15:46
--- OUTSIDE RECORDS SUMMARY | 2022-01-19 07:58 | XMS_ITS | Encounter Summary ---
:1950 Author Organization [facility] Address [address] [place] [address] Support Name Relationship Address Phone YUSRA AUGUSTE Unavailable [address] [place] [facility] [place] [address] YUSRA AUGUSTE Unavailable [address] [place] [facility] [place] [address] CLAY MOSLEY Unavailable Unavailable SJ SANTACRUZ Unavailable [...] MEDICARE MEDICARE PART Jun 18, PART B [id number] KALYANI PATIENT (WNR) (M) B 2016 13A 1 UGLAS MEDICARE MEDICARE PART Jun 18, PART A [id number] AUGUSTE DO PATIENT (WNR) (M) A 2017 VH81 2 UGLAS MEDICARE MEDICARE PART Jun 18, PART B [id number] KALYANIDO PATIENT (WNR) (M) B 2017 VH81 2 UGLAS MEDICARE MEDICARE PART Jun 18, PART A [id number] DO KALYANI PATIENT (WNR) (M) A 2016 13A 1 UGLAS UNITED MEDICARE MCR(Jun 18 [id number] Luz AUGUSTE PATIENT HEALTHCARE ADVANTAGE NR) 2021 37 0 UGLAS MCR (WNR) Selected Encounter This section includes the information on record at [place] for the Encounter. Date/Time Encounter Type Encounter Description Reason Provider Source Sep 13, 2021 02:02 Outpatient Encounter COMMUNITY CARE PM CONSULT IHE Encounter Template Text not used by [place] Plan of Treatment: Future Appointments (+ 6 months) and Future Tests (+/- 45 days) The Plan of Treatment section includes future care activities for the patient from all [place] [facility]. This section includes future appointments and future orders which are active, pending orscheduled.Future Appointments This section includes appointments that were scheduled to occur 6 months from the date of the Encounter, up to a maximum of 20 appointments. The data comes from all [place] treatment facilities. Appointment Date/Time Appointment Type Appointment Facili ty Name Sep 19, 2021 08:00 AM AMBULATORY - MEDICINE [facility] October 18, 2021 02:00 PM AMBULATORY - MEDICINE [facility] November 15, 2021 10:00 AM AMBULATORY - MEDICINE [facility] Dec 01, 2021 10:30 AM [place] [facility] Dec 06, 2021 11:40 AM [place] [facility] Dec 21, 2021 08:00 AM [place] [facility] Jan 06, 2022 02:00 PM [place] [facility] Jan 10, 2022 11:30 AM [facility] Jan 24, 2022 08:00 AM [place] [facility] Feb 21, 2022 10:00 AM [place] [facility] Social History: Smoking Status (Most current) and Tobacco Use (All prior to encounter date) This section includes the most current, and the historical, smoking and tobacco-related health factors from the [place] facility where the Encounter took place.Current Smoking Status This section includes the most current smoking, or tobacco-related health factor, from the [place] facility where the Encounter took place. Date/Time Current Smoking Status Comment Facility Apr 01, 2020 01:16 PM QUIT TOBACCO USE 1-[address] [facility] Tobacco Use History This section includes a history of the smoking, or tobacco- related health factors, that were collected on or before the date of the Encounter. The data comes from the [place] facility where the Encounter took place. Date/Time Smoking Status/Tobacco Use Comment [facility] Mar 24, 2020 03:00 PM QUIT TOBACCO USE 1-7 YEARS AGO CAREY DOYLE [facility] Feb 21, 2019 04:11 PM QUIT TOBACCO USE 1-7 YEARS AGO CAREY DOYLE [facility] Feb 20, 2019 03:38 PM QUIT TOBACCO USE 1-7 YEARS AGO CAREY DOYLE [facility] Feb 03, 2019 09:50 AM QUIT TOBACCO USE 1-7 YEARS AGO CAREY DOYLE [facility] May 25, 2016 11:53 PM QUIT TOBACCO [...] TO TOBACCO CAREY DOYLE [facility] CESS PR Mar 16, 2016 12:50 PM V1-PT THINKING [...] the Encounter. The data comes from all [place] treatment facilities. Date/Time Pathology Report Provider Source Sep 07, 2021 10:54 AM LR SURGICAL PATHOLOGY REPORT: STEFANY MILLER CAREY DOYLE [place] LOCAL TITLE: LR SURGICAL PATHOLOGY REPORT [facility] STANDARD TITLE: PATHOLOGY REPORT DATE OF NOTE: SEP 07, 2021@10:54:25 ENTRY DATE: SEP 07, 2021@10:54:25 AUTHOR: HIRSCHMAN,NIURKA EXP COSIGNER: URGENCY: STATUS: COMPLETED $APHDR Reporting Lab: [facility] [CLIA# [id number]] [address] [place] [address] - - - - - - [...] report in rendering the final pathologic diagnosis. [address] [address] CPT: [id number] /es/ NIURKA Yeung MD Signed Sep 07, 2021@10:54 Performing Laboratory: Surgical Pathology Report Performed By: CAREY MONTOYA [facility] [CLIA# [id number]] [address] [place] [phone] $FTR - - - - - [...] - - LUCAS AUGUSTE STANDARD FORM 515 ID:[id number] SEX:M :1950 AGE: 71 LOC: [place] PCP: Farzaneh Rahman /emely/ NIURKA Yeung MD Signed: 09/07/2021 10:54 Encounter Notes: All associated encounter notes This section contains the clinical notes associated to the Encounter. Date/Time Encounter Note(s) Provider Source Sep 13, 2021 02:02 PM NONVA NOTE: DAVE HUGHES T LOCAL TITLE: COMMUNITY CARE OUTPATIENT NOTE [facility] STANDARD TITLE: NONVA NOTE DATE OF NOTE: SEP 13, 2021@14:02 ENTRY DATE: SEP 13, 2021@14:02:53 AUTHOR: DAVE HUGHES EXP COSIGNER: URGENCY: STATUS: COMPLETED NO SHOW LETTER TO JACOBY SIFUENTES /emely/ peter Bladder Blower Signed: 09/13/2021 14:03
--- OUTSIDE RECORDS SUMMARY | 2022-01-19 07:59 | XMS_ITS | Encounter Summary ---
:1950 Author Organization Department [facility] Address [address] [place] [address] Support Name Relationship Address Phone YUSRA AUGUSTE Unavailable [address] [place] [facility] [place] [address] YUSRA AUGUSTE Unavailable [address] [place] [facility] [place] [address] CLAY MOSLEY Unavailable Unavailable SJ SANTACRUZ Unavailable [...] MEDICARE MEDICARE PART Jun 18, PART A [id number] AUGUSTE PATIENT (WNR) (M) A 2016 13A 1 UGLAS MEDICARE MEDICARE PART Jun 18, PART A [id number] KALYANIDO PATIENT (WNR) (M) A 2017 VH81 2 UGLAS MEDICARE MEDICARE PART Jun 18, PART B [id number] AUGUSTE DO PATIENT (WNR) (M) B 2016 13A 1 UGLAS MEDICARE MEDICARE PART Jun 18, PART B [id number] AUGUSTE DO PATIENT (WNR) (M) B 2017 VH81 2 LAS UNITED MEDICARE MCR(Jun 18 [id number] Luz AUGUSTE PATIENT HEALTHCARE ADVANTAGE NR) 2021 37 0 [facility] MCR (WNR) Selected Encounter This section includes the information on record at [place] for the Encounter. Date/Time Encounter Type Encounter Reason Provider Source Description Sep 19, 2021 OFFICE O/P EST PRIMARY ICD-10-CM Z71.89 ELFEGO MORRELL Lei 08:00 AM MINIMAL PROB CARE/MEDICINE Other specified V counseling with Provider Comments: Counseling,Speci fied IHE Encounter Template Text not used by [facility] Assessments - Encounter Diagnoses This section includes the primary and secondary diagnoses documented for the Encounter. Date/Time Primary/Secondary Diagnosis Name Provider Source Diagnosis Sep 19, 2021 PRIMARY Other specified ZAK MORRELL [facility] 08:30 AM counseling V CLINIC Plan of Treatment: Future Appointments (+ 6 months) and Future Tests (+/- 45 days) The Plan of Treatment section includes future care activities for the patient from all [place] [facility]. This section includes future appointments and future orders which are active, pending orscheduled.Future Appointments This section includes appointments that were scheduled to occur 6 months from the date of the Encounter, up to a maximum of 20 appointments. The data comes from all [place] treatment facilities. Appointment Date/Time Appointment Type Appointment Facili ty Name October 18, 2021 02:00 PM AMBULATORY - MEDICINE [facility] November 15, 2021 10:00 AM AMBULATORY - MEDICINE [facility] Dec 01, 2021 10:30 AM [place] [facility] Dec 06, 2021 11:40 AM [place] [facility] Dec 21, 2021 08:00 AM [place]ORY - NONE [place] [facility] Jan 06, 2022 02:00 PM [place]ORY [place] [facility] Jan 10, 2022 11:30 AM AMBULATORY - MEDICINE [facility] Jan 24, 2022 08:00 AM [place] [facility] Feb 21, 2022 10:00 AM [place] [facility] Mar 21, 2022 10:30 AM AMBULATORY - MEDICINE [facility] Active, Pending, and Scheduled Orders This section includes a listing of several types of active, pending, and scheduled orders, including clinic medications orders, diagnostic test orders, procedure orders and consult orders; where the start date of the order is 45 days before the date of the Encounter or 45 days after the date of the Encounter. The data comes from all [facility]. Test Date/Time Test Type Test Details Facility Name October 31, 2021 07:37 AM Consult Order COMMUNITY CARE-EGD Cons [facility] Social History: Smoking Status (Most current) and Tobacco Use (All prior to encounter date) This section includes the most current, and the historical, smoking and tobacco-related health factors from the [place] facility where the Encounter took place.Current Smoking Status This section includes the most current smoking, or tobacco-related health factor, from the [facility] where the Encounter took place. Date/Time Current Smoking Status Comment Facility Jun 29, 2017 07:18 AM QUIT TOBACCO USE 1-7 YEARS AGO [facility] quit mar 2016 Tobacco Use History This section includes a history of the smoking, or tobacco- related health factors, that were collected on or before the date of the Encounter. The data comes from the [place] facility where the Encounter took place. Date/Time Smoking Status/Tobacco Use Comment [facility] Nov 21, 2016 08:42 AM QUIT TOBACCO USE 1-7 YEARS AGO [facility] apr 17 1916 Pathology Reports: +/- 30 [...] the Encounter. The data comes from all [facility]. Date/Time Pathology Report Provider Source Sep 07, 2021 10:54 AM LR SURGICAL PATHOLOGY REPORT: STEFANY MILLER LOCAL TITLE: LR SURGICAL PATHOLOGY REPORT [facility] STANDARD TITLE: PATHOLOGY REPORT DATE OF NOTE: SEP 07, 2021@10:54:25 ENTRY DATE: SEP 07, 2021@10:54:25 AUTHOR: NIURKA MILLER EXP COSIGNER: URGENCY: STATUS: COMPLETED $APHDR Reporting Lab: CAREY MONTOYA [facility] [CLIA# [id number]] [address] [place] [address] - - - - - - [...] report in rendering the final pathologic diagnosis. [address] [address] CPT: [id number] /es/ NIURKA Yeung MD Signed Sep 07, 2021@10:54 Performing Laboratory: Surgical Pathology Report Performed By: CAREY DOYLE [facility] [CLIA# [id number]] [address] [place] [phone] $FTR - - - - - [...] - - LUCAS AUGUSTE STANDARD FORM 515 ID:[id number] SEX:M :1950 AGE: 71 LOC: [place] PCP: Farzaneh Rahman /emely/ NIURKA Yeung MD Signed: 09/07/2021 10:54 Encounter Notes: All associated encounter notes This section contains the clinical notes associated to the Encounter. Date/Time Encounter Note(s) Provider Source Sep 19, 2021 08:26 AM PRIMARY CARE NOTE: ZAK MORRELL [facility] LOCAL TITLE: Ui Lead Developer Note STANDARD TITLE: PRIMARY CARE NOTE DATE OF NOTE: SEP 19, 2021@08:26 ENTRY DATE: SEP 19, 2021@08:26:41 AUTHOR: ZAK MORRELL V EXP COSIGNER: URGENCY: STATUS: COMPLETED Presents for suture removal left lateral forearm Removed sutures. Denies pain or tenderness. Cleansed with NaCl 0.9%. Covered with dry dressing, telfa + deana. Will call with any other questions or concerns. /emely/ ZAK MORRELL REGISTERED NURSE Signed: 09/19/2021 08:30
--- OUTSIDE RECORDS SUMMARY | 2022-01-19 07:59 | XMS_ITS | Encounter Summary ---
:1950 Author Organization [facility] rs Address [address] [place] [address] Support Name Relationship Address Phone YUSRA AUGUSTE Unavailable [address] [place] [address] YUSRA AUGUSTE Unavailable [address] [place] [address] CLAY MOSLEY Unavailable Unavailable SJ SANTACRUZ Unavailable [...] MEDICARE MEDICARE PART Jun 18, PART A [id number] DO KALYANI PATIENT (WNR) (M) A 2016 13A 1 UGLAS MEDICARE MEDICARE PART Jun 18, PART A [id number] KALYANIDO PATIENT (WNR) (M) A 2017 VH81 2 U[place]AS MEDICARE MEDICARE PART Jun 18, PART B [id number] KALYANIDO PATIENT (WNR) (M) B 2017 VH81 2 U[place]AS MEDICARE MEDICARE PART Jun 18, PART B [id number] KALYANIDO PATIENT (WNR) (M) B 2016 13A 1 UGLAS UNITED MEDICARE MCR(W Jun 18 [id number] Luz AUGUSTE PATIENT HEALTHCARE ADVANTAGE NR) 2021 37 0 UGLAS [facility] (WNR) Selected Encounter This section includes the information on record at [place] for the Encounter. Date/Time Encounter Type Encounter Description Reason Provider Source Sep 15, 2021 02:13 Outpatient Encounter ADMIN PAT ACTIVOCTAVIO PM (DONALD) CORNELIUS Encounter Template Text not used by [place] Plan of Treatment: Future Appointments (+ 6 months) and Future Tests (+/- 45 days) The Plan of Treatment section includes future care activities for the patient from all [place] [facility]. This section includes future appointments and future orders which are active, pending orscheduled.Future Appointments This section includes appointments that were scheduled to occur 6 months from the date of the Encounter, up to a maximum of 20 appointments. The data comes from all [place] treatment facilities. Appointment Date/Time Appointment Type Appointment Facili ty Name Sep 19, 2021 08:00 AM AMBULATORY - MEDICINE [facility] October 18, 2021 02:00 PM AMBULATORY - MEDICINE [facility] November 15, 2021 10:00 AM AMBULATORY - MEDICINE [facility] Dec 01, 2021 10:30 AM [place] [facility] Dec 06, 2021 11:40 AM [place] [facility] Dec 21, 2021 08:00 AM [place] [facility] Jan 06, 2022 02:00 PM [place] [facility] Jan 10, 2022 11:30 AM [facility] Jan 24, 2022 08:00 AM [place] [facility] Feb 21, 2022 10:00 AM [place] [facility] Social History: Smoking Status (Most [...] Encounter took place. Date/Time Current Smoking Status [facility] Facility Apr 01, 2020 01:16 PM QUIT TOBACCO USE 1-7 YEARS AGO [facility] Tobacco Use History This section includes a history of the smoking, or tobacco- related health factors, that were collected on or before the date of the Encounter. The data comes from the [place] facility where the Encounter took place. Date/Time Smoking Status/Tobacco Use Comment Facil ity Mar 24, 2020 03:00 PM QUIT TOBACCO USE 1-7 YEARS A[address] [facility]TOYA [facility] Feb 21, 2019 04:11 PM QUIT TOBACCO USE 1-7 YEARS AGO CAREY DOYLE [facility] Feb 20, 2019 03:38 PM QUIT TOBACCO USE 1-7 YEARS AGO CAREY DOYLE [facility] Feb 03, 2019 09:50 AM QUIT TOBACCO USE 1-7 YEARS AGO CAREY DOYLE [facility] May 25, 2016 11:53 PM QUIT TOBACCO USE IN PAST YEAR CAREY DOYLE [facility] May 23, 2016 06:57 PM QUIT TOBACCO USE > 7 YEARS AGO CAREY DOYLE [facility] May 19, 2016 03:55 PM QUIT TOBACCO USE IN PAST YEAR CAREY DOYLE [facility] May 19, 2016 10:29 AM QUIT TOBACCO USE 1-7 YEARS AGO CAREY DOYLE [facility] May 01, 2016 07:26 PM QUIT TOBACCO USE IN PAST YEAR CAREY DOYLE [facility] May 01, 2016 03:11 PM QUIT TOBACCO USE IN PAST YEAR CAREY DOYLE [facility] May 01, 2016 11:19 AM QUIT TOBACCO USE IN PAST YEAR CAREY DOYLE [facility] Mar 16, 2016 12:50 PM V1-PT DECLINES REF TO TOBACCO CAREY DOYLE [facility] CESS PRGM Mar 16, 2016 12:50 PM V1-PT THINKING ABOUT QUIT CAREY DOYLE [facility] TOBACCO USE Aug 12, 2015 08:48 AM CURRENT SMOKER CAREY Yates [facility] Pathology Reports: +/- 30 days of [...] [place] LOCAL TITLE: LR SURGICAL PATHOLOGY REPORT [facility] STANDARD TITLE: PATHOLOGY REPORT DATE OF NOTE: SEP 07, 2021@10:54:25 ENTRY DATE: SEP 07, 2021@10:54:25 AUTHOR: NIURKA MILLER EXP COSIGNER: URGENCY: STATUS: COMPLETED $APHDR Reporting Lab: [facility] [CLIA# [id number]] [address] [place] [facility] [place] [address] - - - - - - [...] report in rendering the final pathologic diagnosis. [address] [address] CPT: [id number] /es/ NIURKA Yeung MD Signed Sep 07, 2021@10:54 Performing Laboratory: Surgical Pathology Report Performed By: CAREY MONTOYA [facility] [CLIA# [id number]] [address] [place] [address] $FTR - - - - - [...] - - LUCAS AUGUSTE STANDARD FORM 515 ID:[id number] SEX:M :1950 AGE: 71 LOC: [place] PCP: Farzaneh Rahman /emely/ NIURKA Yeung MD Signed: 09/07/2021 10:54 Encounter Notes: All associated encounter notes This section contains the clinical notes associated to the Encounter. Date/Time Encounter Note(s) Provider Source Sep 15, 2021 02:13 PM ADMINISTRATIVE NOTE: ZAK VILLANUEVA LOCAL TITLE: Has Admin Note [facility] STANDARD TITLE: ADMINISTRATIVE NOTE DATE OF NOTE: SEP 15, 2021@14:13 ENTRY DATE: SEP 15, 2021@14:13:12 AUTHOR: ZAK VILLANUEVA EXP COSIGNER: URGENCY: STATUS: COMPLETED Reason for call Clinic Name: Pt declines appt at this time. /emely/ ZAK VILLANUEVA Signed: 09/15/2021 14:13
--- OUTSIDE RECORDS SUMMARY | 2022-01-19 08:00 | XMS_ITS | Encounter Summary ---
:1950 [facility] Address [address] [place] [address] Support Name Relationship Address Phone YUSRA AUGUSTE Unavailable [address] [place] [facility] [place] [place] [address] YUSRA AUGUSTE Unavailable [address] [place] [facility] [place] [address] CLAY MOSLEY Unavailable Unavailable SJ SANTACRUZ Unavailable [...] MEDICARE MEDICARE PART Jun 18, PART A [id number] DO KALYANI PATIENT (WNR) (M) A 2016 13A 1 UGLAS MEDICARE MEDICARE PART Jun 18, PART B [id number] DO KALYANI PATIENT (WNR) (M) B 2016 13A 1 LAS MEDICARE MEDICARE PART Jun 18, PART A [id number] KALYANIDO PATIENT (WNR) (M) A 2017 VH81 2 LAS MEDICARE MEDICARE PART Jun 18, PART B [id number] DO KALYANI PATIENT (WNR) (M) B 2017 VH81 2 UGLAS UNITED MEDICARE MCR(Jun 18 [id number] Luz AUGUSTE PATIENT HEALTHCARE ADVANTAGE NR) 2021 37 0 LAS [facility] (WNR) Selected Encounter This section includes the information on record at [place] for the Encounter. Date/Time Encounter Type Encounter Description Reason Provider Source Oct 14, 2021 08:59 Outpatient Encounter TELEPHONE TRIAGE AM IHE Encounter Template Text not used by [place] Plan of Treatment: Future Appointments (+ 6 months) and Future Tests (+/- 45 days) The Plan of Treatment section includes future care activities for the patient from all [place] treatmentfacilities. This section includes future appointments and future orders which are active, pending orscheduled.Future Appointments This section includes appointments that were scheduled to occur 6 months from the date of the Encounter, up to a maximum of 20 appointments. The data comes from all [place] treatment [facility]. Appointment Date/Time Appointment Type Appointment Facili ty Name October 18, 2021 02:00 PM AMBULATORY - MEDICINE [facility] November 15, 2021 10:00 [facility] Dec 01, 2021 10:30 AM [place] [facility] Dec 06, 2021 11:40 AM [place] [facility] Dec 21, 2021 08:00 AM [place]ORY - [place]ONE [place] [facility] Jan 06, 2022 02:00 PM [place] [facility] Jan 10, 2022 11:30 AM AMBULATORY - [facility]ICINE [facility] Jan 24, 2022 08:00 AM [place] [facility] Feb 21, 2022 10:00 AM [place] [facility] Mar 21, 2022 10:30 AM [facility] Active, Pending, and Scheduled Orders This section includes a listing of several types of active, pending, and scheduled orders, including clinic medications orders, diagnostic test orders, procedure orders and consult orders; where the start date of the order is 45 days before the date of the Encounter or 45 days after the date of the Encounter. The data comes from all [place] treatment [facility]. Test Date/Time Test Type Test Details Facility Name October 31, 2021 07:37 AM Consult Order COMMUNITY CARE-EGD Cons [facility] [employer] November 15, 2021 10:37 AM Consult Order COMMUNITY CARE-PODIATRY Co ns [facility] [employer] Social History: Smoking Status (Most current) and Tobacco Use (All prior to encounter date) This section includes the most current, and the historical, smoking and tobacco-related health factors from the [place] facility where the Encounter took place.Current Smoking Status This section includes the most current smoking, or tobacco-related health factor, from the [place] facility where the Encounter took place. Date/Time Current Smoking Status Comment Facility Apr 01, 2020 01:16 PM QUIT TOBACCO USE 1-7 YEARS AGO [facility] Tobacco Use History This section includes a history of the smoking, or tobacco- related health factors, that were collected on or before the date of the Encounter. The data comes from the [place] facility where the Encounter took place. Date/Time Smoking Status/Tobacco Use Comment [facility] Mar 24, 2020 03:00 PM QUIT TOBACCO USE 1-7 YEARS AGO [facility] Feb 21, 2019 04:11 PM QUIT [...] 12:50 PM V1-PT DECLINES REF TO TOBACCO [facility] CESS PRGM Mar 16, 2016 12:50 PM V1-PT THINKING ABOUT QUIT [facility] TOBACCO USE Aug 12, 2015 08:48 AM CURRENT SMOKER CAREY Yates [facility] Encounter Notes: All associated encounter notes This section contains the clinical notes associated to the Encounter. Date/Time Encounter Note(s) Provider Source Oct 14, 2021 08:59 AM PRIMARY CARE ADMINISTRATIVE NOTE: KATIE MEDEL [facility] LOCAL TITLE: Administrative Note/Primary Care STANDARD TITLE: PRIMARY CARE ADMINISTRATIVE NOTE DATE OF NOTE: OCT 14, 2021@08:59 ENTRY DATE: OCT 14, 2021@08:59:39 AUTHOR: KATIE WALLIS EXP COSIGNER: URGENCY: STATUS: COMPLETED Pt called with triage issue. trouble with stomch everytime time he eats - he feels pain Pt has the following symptoms - stomach pain, ti red Forwarded call to [facility] Call Center Telephone Tria nirav line @ Ext. [phone] [x ] Adding PACT RN and PACT JOINER HELPER /emely/ KATIE WALLIS AMSA Signed: 10/14/2021 09:03 Receipt Acknowledged By: * AWAITING SIGNATURE * ISATU NUNEZ
--- OUTSIDE RECORDS SUMMARY | 2022-01-19 08:01 | XMS_ITS | Encounter Summary ---
:1950 Author Organization [facility] Address [address] [place] [id number] Support Name Relationship Address Phone YUSRA AUGUSTE Unavailable [address] [place] [facility] [place] [address] YUSRA AUGUSTE Unavailable [address] [place] [facility] [place] [address] CLAY MOSLEY Unavailable Unavailable SJ SANTACRUZ Unavailable [...] MEDICARE MEDICARE PART Jun 18, PART A [id number] DO KALYANI PATIENT (WNR) (M) A 2016 13A 1 UGLAS MEDICARE MEDICARE PART Jun 18, PART B [id number] KALYANIDO PATIENT (WNR) (M) B 2016 13A 1 LAS MEDICARE MEDICARE PART Jun 18, PART A [id number] KALYANIDO PATIENT (WNR) (M) A 2017 VH81 2 LAS MEDICARE MEDICARE PART Jun 18, PART B [id number] KALYANIDO PATIENT (WNR) (M) B 2017 VH81 2 LAS UNITED MEDICARE MCR(Jun 18 [id number] Luz AUGUSTE PATIENT HEALTHCARE ADVANTAGE NR) 2021 37 0 LAS [facility] (WNR) Selected Encounter This section includes the information on record at [place] for the Encounter. Date/Time Encounter Type Encounter Reason Provider Source Description October 18, 2021 OFFICE O/P EST PRIMARY ICD-10-CM SABINA 02:00 PM MOD 30-39 MIN CARE/MEDICINE R63.4 Abnormal T,[facility] weight loss with Provider Comments: Abnormal Weight Loss IHE Encounter Template Text not used by [facility] Assessments - Encounter Diagnoses This section includes the primary and secondary diagnoses documented for the Encounter. 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,[facility] and lung October 31, 2021 SECONDARY Essential [facility] 07:39 AM (primary) T,[facility] hypertension October 31, 2021 SECONDARY Nausea [facility] 07:39 AM T[facility] October 31, 2021 SECONDARY Obesity, [facility] 07:39 AM unspecified [facility] October 31, 2021 SECONDARY Spinal stenosis, [facility] V A 07:39 AM lumbar region with T,[facility]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 October 31, 2021 SECONDARY Squamous cell [facility] 07:39 AM carcinoma skin/ T,[facility]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, inc shoulder Plan of Treatment: Future Appointments (+ 6 months) and Future Tests (+/- 45 days) The Plan of Treatment section includes future care activities for the patient from all [place] treatmentfacilities. This section includes future appointments and future orders which are active, pending orscheduled.Future Appointments This section includes appointments that were scheduled to occur 6 months from the date of the Encounter, up to a maximum of 20 appointments. The data comes from all [place] treatment facilities. Appointment Date/Time Appointment Type Appointment Facili ty Name November 15, 2021 10:00 AM AMBULATORY - MEDICINE [facility] Dec 01, 2021 10:30 [facility] Dec 06, 2021 11:40 [facility] Dec 21, 2021 08:00 AM [facility] - [facility] Jan 06, 2022 02:00 PM AMBULATORY - REHAB MEDICINE [facility]ARE[facility] Yates [facility] Jan 10, 2022 11:30 AM AM[facility] - [facility]ICINE [facility] Jan 24, 2022 08:00 AM AMBULATORY - [place] [facility] Feb 21, 2022 10:00 AM AMBULATORY - [place] [facility] Mar 21, 2022 10:30 AM [facility] - MEDICINE [facility] Active, Pending, and Scheduled [...] the Encounter. The data comes from all [place] treatment facilities. Test Date/Time Test Type Test Details Facility Name October 31, 2021 07:37 AM Consult Order COMMUNITY CARE-EGD Cons NE [facility] November 15, 2021 10:37 AM Consult Order COMMUNITY CARE-PODIATRY Co ns [facility] Vital Signs: All taken on the encounter date This section contains inpatient and outpatient Vital Signs collected on the date of the Encounter. Date/Time Temperature Pulse Blood Respiratory SP02 Pain Height Weight Tej dy Source Pressure Rate Mass Index October 18 97.1 F 100 116/84 18 /min 96 % 5 276 lb 38 LISA 2021 02:06 /min mm[Hg] [facility] Social History: Smoking Status (Most current) and Tobacco Use (All prior to encounter date) This section includes the most current, and the historical, smoking and tobacco-related health factors from the [place] facility where the Encounter took place.Current Smoking Status This section includes the most current smoking, or tobacco-related health factor, from the [place] facility where the Encounter took place. Date/Time Current Smoking Status Comment Facility Jun 29, 2017 07:18 AM QUIT TOBACCO USE 1-7 YEARS AGO [facility] quit mar 2016 Tobacco Use History This section includes a history of the smoking, or tobacco- related health factors, that were collected on or before the date of the Encounter. The data comes from the [place] facility where the Encounter took place. Date/Time Smoking Status/Tobacco Use Comment Subhash walltodd Nov 21, 2016 08:42 AM QUIT TOBACCO USE 1-7 YEARS AGO [facility] apr 17 1916 Encounter Notes: All associated encounter notes This section contains the clinical notes associated to the Encounter. Date/Time Encounter Note(s) Provider Source October 18, 2021 02:08 PRIMARY CARE ANNUAL EVALUATION NOTE: Yao ROMAN [facility] LOCAL TITLE: Preventive Health Annual Review CLINIC STANDARD TITLE: PRIMARY CARE ANNUAL EVALUATION N OTE DATE OF NOTE: OCTOBER 18, 2021@14:08 ENTRY DATE: OCTOBER 18, 2021@14:08:39 AUTHOR: JULIETA ROMAN EXP COSIGNER: URGENCY: STATUS: COMPLETED Pt here for f2f with PCP Advance Directive Screen: Patient has an up-to-date Advance Directive at an outside, non-va facility and was asked to forward a copy to his /her clinician. Diabetic Eye Exam: Diabetic Eye Exam already scheduled inside/outs [facility], or patient already in eye clinic recall. COVID-19 Immunization: Moderna COVID-19 Vaccine given previously Patient received a prior dose of the Moderna [place] VID-19 Vaccine. Date: May 17, 2021 Series: Series 3 Location: [facility] Vaccine:COVID-19, mRNA LNP-S, PF, Moderna Date: 05/17/2021 Practice/Source: [facility] [facility] ([place]) #[id number] Route: Intramuscular Heel Sewer/Cred.: - Site: Left Arm MFR: Moderna [employer] Exp. Date: 05/17/2021 Lot: [id number] /es/ JULIETA ROMAN [facility] Signed: 10/18/2021 14:10 October 18, 2021 02:00 PRIMARY CARE NOTE: KAITLIN TINOCO [facility] LOCAL TITLE: Primary Care Clinic Note [facility] STANDARD TITLE: PRIMARY CARE NOTE DATE OF NOTE: OCTOBER 18, 2021@14:00 ENTRY DATE: OCTOBER 24, 2021@23:56:18 AUTHOR: DIPIKA TINOCO EXP COSIGNER: URGENCY: STATUS: COMPLETED Primary Care Clinic Note HPI LUCAS AUGUSTE is a 71 year old MALE with hist ory of psoriasis, lung cancer s/p chemotherapy/radx/dervaluma b now in remission, diverticulitis s/p partial colonic resection, chronic low back pain w/ spinal stenosis s/p discectomy (remote), COPD, OA s/p R TKA () presenting for primary care follow-up. This is our first meeting as he is switching his care to [facility]. He previously followed with PROTOTYPE MODEL MAKER Peterson. Prefers to be called Pierre. See below for main concerns - uncontrolled pain and anorexia/epigastric pain/nausea/unintentional weight loss. ASSESSMENT AND PLAN # Anorexia, Nausea Presenting with sevearl jolanta h history of epigastric pain with tendenress on exam and anorexia with poor PO appetite and n ausea. No vomiting Feels better laying down. Also sensation of food getting stuck - no serenity dysphagia w/ coughing after swallowing. [...] possible P/ - EGD 1-2 weeks - requesting to be done locally - will place OCC GI referral w/ comments - Start Omeprazole - Pending results of EGD will exapnd unintention al weight loss work-up and possibly obtain CTAP # Low Back Pain s/p NSGY discectomy remotely. On chart review / prior PCP notes - had pain cli fidencio referral. No relief from biowave. No relief w/ chiropractery. Prior MRI n otes severe psinal stenosis, with moderate-severe foramin al stenosis. Prior PCP placed a consult to [facility] 07/2021. - Renew PT referral # COPD # Prior Lung Cancer Last PCP placed referral [facility] Pulm f ollow-up as Dr. Vallejo left, as well as On[facility] He does not want to come to [facility]. He has appointment 01/18/22. # Depression Not addressed much today. - Continue Sertraline 150mg daily # Obesity # Prediabetes - Continue Metformin # Podiatry Has been following chronically for onychomycosis and foot pain # Tobacco Use Disorder - Quit 6 [...] Physical Exam - General Appearance: no acute distress. - Cardiovascular: RR, NR with normal S1 and S2; no murmur, gallop, rub. - Extremities: Warm, no LE edema bilaterally. - Resp: Clear to auscultation bilaterally. - GI: Normoactive BS, soft, non-distended, tende r to palpation in epigastrum - Psych: Alert, oriented, pleasant and cooperati [...] NONE FOUND TSH: 1.08 (05/16/21 09:44) PSA (LAST MODEL DEPARTMENT SUPERVISOR) - NONE FOUND HIV: Collection DT Spec [...] ACTIVE CAP/TAB BY MOUTH TWICE A DAY UPCOMING APPOINTMENTS Future Appointments - October@10:00 BUFFY BAUITSTA MD Jan@10:00 [facility] DERM TERMINE B2Feb@10:00 [facility] EYE KOSKEY B3RF Jul@10:00 [facility] ARTH FELLOW 4 M2RE /emely/ KAITLIN TINOCO MD Staff Physician Signed: 10/31/2021 07:39
--- OUTSIDE RECORDS SUMMARY | 2022-01-19 08:01 | XMS_ITS | Encounter Summary ---
:1950 Author Organization [facility] Address [address] [place] [id number] Support Name Relationship Address Phone YUSRA AUGUSTE Unavailable [address] [place] [facility] [place] [address] YUSRA AUGUSTE Unavailable [address] [place] [facility] [place] [address] CLAY MOSLEY Unavailable Unavailable SJ SANTACRUZ Unavailable [...] MEDICARE MEDICARE PART Jun 18, PART A [id number] DO KALYANI PATIENT (WNR) (M) A 2016 13A 1 UGLAS MEDICARE MEDICARE PART Jun 18, PART B [id number] DO KALYANI PATIENT (WNR) (M) B 2016 13A 1 LAS MEDICARE MEDICARE PART Jun 18, PART A [id number] KALYANIDO PATIENT (WNR) (M) A 2017 VH81 2 LAS MEDICARE MEDICARE PART Jun 18, PART B [id number] DO KALYANI PATIENT (WNR) (M) B 2017 VH81 2 U[place]AS UNITED MEDICARE MCR(Jun 18 [id number] Luz AUGUSTE PATIENT HEALTHCARE ADVANTAGE NR) 2021 37 0 LAS [facility] (WNR) Selected Encounter This section includes the information on record at NH for the Encounter. Date/Time Encounter Type Encounter Reason Provider Source Description Oct 14, 2021 09:35 Outpatient TELEPHONE TRIAGE RUDY ZAMBRANO AM Encounter IHE Encounter Template Text not used by NH Plan of Treatment: Future Appointments (+ 6 months) and Future Tests (+/- 45 days) The Plan of Treatment section includes future care activities for the patient from all [place] treatment[facility]. This section includes future appointments and future orders which are active, pending orscheduled.Future Appointments This section includes appointments that were scheduled to occur 6 months from the date of the Encounter, up to a maximum of 20 appointments. The data comes from all NH treatment [facility]. Appointment Date/Time Appointment Type Appointment Facili ty Name October 18, 2021 02:00 PM AMBULATORY - MEDICINE [facility] November 15, 2021 10:00 AM AMBULATORY MEDICINE [facility] Dec 01, 2021 10:30 AM AMBULATORY - NONE [place] [facility] Dec 06, 2021 11:40 AM [place] [facility] Dec 21, 2021 08:00 AM AMBULATORY - NONE [place] [facility] Jan 06, 2022 02:00 PM [place] [facility] Jan 10, 2022 11:30 AM AMBULATORY - MEDICINE [facility] Jan 24, 2022 08:00 AM AM[place]UL[place] [facility] Feb 21, 2022 10:00 AM AMBULATORY - SURGERY [place] [facility] Mar 21, 2022 10:30 AM AMBULATORY - MEDICINE [facility] Active, Pending, and Scheduled Orders This section includes a listing of several types of active, pending, and scheduled orders, including clinic medications orders, diagnostic test orders, procedure orders and consult orders; where the start date of the order is 45 days before the date of the Encounter or 45 days after the date of the Encounter. The data comes from all [facility]. Test Date/Time Test Type Test Details Facility Name October 31, 2021 07:37 AM Consult Order COMMUNITY CARE-EGD Cons [facility] November 15, 2021 10:37 AM Consult Order COMMUNITY CARE-PODIATRY Co ns [facility] Social History: Smoking Status (Most current) and Tobacco Use (All prior to encounter date) This section includes the most current, and the historical, smoking and tobacco-related health factors from the NH facility where the Encounter took place.Current Smoking Status This section includes the most current smoking, or tobacco-related health factor, from the NH facility where the Encounter took place. Date/Time Current Smoking Status Comment Facility Apr 01, 2020 01:16 PM QUIT TOBACCO USE 1-7 YEARS AGO [facility] Tobacco Use History This section includes a history of the smoking, or tobacco- related health factors, that were collected on or before the date of the Encounter. The data comes from the NH facility where the Encounter took place. Date/Time Smoking Status/Tobacco Use Comment [facility] Mar 24, 2020 03:00 PM QUIT TOBACCO USE 1-7 YEARS AGO [facility] Feb 21, 2019 04:11 PM QUIT TOBACCO USE 1-7 YEARS AGO [facility] Feb 20, 2019 03:38 PM QUIT TOBACCO USE 1-7 YEARS AGO [facility] Feb 03, 2019 09:50 AM QUIT TOBACCO USE 1-7 YEARS AGO [facility] May 25, 2016 11:53 PM QUIT TOBACCO USE IN PAST YEAR [facility] May 23, 2016 06:57 PM QUIT TOBACCO USE > 7 YEARS AGO [facility] May 19, 2016 03:55 PM QUIT TOBACCO USE IN PAST YEAR [facility] May 19, 2016 10:29 AM QUIT TOBACCO USE 1-7 YEARS AGO [facility] May 01, 2016 07:26 PM QUIT TOBACCO USE IN PAST YEAR [facility] May 01, 2016 03:11 PM QUIT TOBACCO USE IN PAST YEAR [facility] May 01, 2016 11:19 AM QUIT TOBACCO USE IN PAST YEAR [facility] Mar 16, 2016 12:50 PM V1-PT DECLINES REF TO TOBACCO [facility] CESS PR[facility] Mar 16, 2016 12:50 PM V1-PT THINKING ABOUT QUIT [facility] TOBACCO USE Aug 12, 2015 08:48 AM CURRENT SMOKER CAREY Yates [facility] Encounter Notes: All associated encounter notes This section contains the clinical notes associated to the Encounter. Date/Time Encounter Note(s) Provider Source Oct 14, 2021 09:35 AM RN PROGRESS NOTE: HARDY ZAMBRANO [place] LOCAL TITLE: CCC: CLINICAL TRIAGE [facility] STANDARD TITLE: RN PROGRESS NOTE DATE OF NOTE: OCT 14, 2021@09:35:18 ENTRY DATE: OCT 14, 2021@09:35:18 AUTHOR: HARDY ZAMBRANO EXP COSIGNER: URGENCY: STATUS: COMPLETED CCC: CLINICAL TRIAGE Has ADDENDA Patient Demographics Patient Name: LUCAS AUGUSTE Patient Primary Address: [place] [address] Patient : 1950 Patient Age: 71 Emergency Contact: YUSRA AUGUSTE Emergency Contact Patient Primary Phone: [phone] SSN: [id number] Caller Relationship: Self Triage Summary Nurse Summary: declines ER Now-states ma ybe he could go later after gets home from work Upper abdominal pain x 1 1/2 months Forwarding to PC Team for f/u please Conducted triage/discussed symptoms Chief Complaint: Abdominal Pain System WHEN: Now System WHERE: Emergency department Pain Score: 4 Utilized the Triage Tool: Yes Nurse's Recommendation / WHEN: Now Nurse's Recommendation / WHERE: ED [facility] Patient Disposition Patient/Caregiver agrees to plan of care: No Other - Patient Where Disposition: declines Er N ow Patient WHEN: Other Other - Patient When Disposition: may go later t fan Summary of Actions Other course(s) of action Generated msg to PACT/Provider Clinical Contact Center Codes Clinic/Location: [facility] PHONE CCC RN TXCC Triage Complete Triage Note: Phone Triage 14 Oct 2021 13:25:51 +0000 [facility] Demographics 71 y/o Male Results CC: Abdominal Pain Nurse selected: Now Nurse selected follow-up location: Emergency de partment Software suggested: Now Software suggested follow-up location: Emergenc y department Values and Measures Duration of CC: 1 Months Alerts 1) This is a HIGHER COMPLEXITY patient. Positive Responses HPI: abdominal pain, localized to upper abdomen HPI: lightheadedness and abdominal pain, durati on longer than 5 minutes Negative Responses Denies: HPI: abdominal pain, severe Denies: HPI: diaphoresis, with abdominal pain Denies: HPI: dyspnea, with abdominal pain Denies: HPI: neck or jaw pain with abdominal pa in Denies: HPI: palpitations, with abdominal pain Denies: HPI: syncope, with abdominal pain Denies: HPI: weakness, with abdominal pain, dur ation longer than 5 minutes Denies: PMH: abdominal aortic aneurysm Denies: PMH: angina Denies: PMH: diabetes Denies: PMH: heart attack Education Verbal Education Provided: Based on your responses, you should be treated in the emergency room. Take action: You need to see a provider now or your conditio n could worsen. Consider calling an ambulance. Chew on one adult regular strength aspirin (325 mg). Do not use aspirin if any of the following is t rue: You are allergic to aspirin You have vomited blood within the last 30 days You have had stool that has been black or red w ithin the last month /emely/ HARDY ZAMBRANO Clinical Contact Center shuttle fixer Signed: 10/14/2021 09:35 Receipt Acknowledged By: 10/14/2021 12:30 /charmaine NUNEZ LPN for ZAK MORRELL * AWAITING SIGNATURE * ISATU NUNEZ 10/14/2021 ADDENDUM STATUS: COMPLETED called back with VS- B/P 139/72 p-77 Is expecting call back from his PC team /emely/ HARDY ZAMBRANO Clinical Contact Center shuttle fixer Signed: 10/14/2021 09:39 Receipt Acknowledged By: 10/14/2021 12:31 /emely/ ISATU NUNEZ LPN for ZAK MORRELL 10/14/2021 ADDENDUM STATUS: COMPLETED I called patient and no answer. Left voicemail a sking him to return my call. /emely/ KAITLIN TINOCO MD Staff Physician Signed: 10/14/2021 12:35 10/14/2021 ADDENDUM STATUS: COMPLETED Called again no answer. Susp ect does not need ER, but will try to discuss w/ him over virtual appointment. I'm also free to see him in [place] as an overbook this PM if he prefers. Could be seen at 330pm. /charmaine TINOCO MD Staff Physician Signed: 10/14/2021 12:38 10/14/2021 ADDENDUM STATUS: COMPLETED SPoke with patient who decli sarath an appointment today as he would not be able to make it. Reports his symptoms have not worsened but have not improved. States he could see provider next week o n Sunday if that is an option. States if his ssx worsen over the weekend or be fore he is able to speak with provider he will follow [facility] triage nurse recommendation o f emergency medical care. /emely/ ISATU NUNEZ LPN Signed: 10/14/2021 15:27 10/17/2021 ADDENDUM STATUS: COMPLETED vm from - at time of vm left he has yet received a call from provider # /emely/ KATIE PABLO Signed: 10/17/2021 08:14 Receipt Acknowledged By: 10/17/2021 08:19 /es/ ZAK MORRELL REGISTERED NURSE 10/17/2021 ADDENDUM STATUS: COMPLETED negotiated 14:00 on 10/18 with . /emely/ KATIE PABLO Signed: 10/17/2021 08:22
--- OUTSIDE RECORDS SUMMARY | 2022-01-19 08:01 | XMS_ITS | Encounter Summary ---
:1950 Author Organization [facility] Address [address] [place] [id number] Support Name Relationship Address Phone YUSRA AUGUSTE Unavailable [address] [place] [address] YUSRA AUGUSTE Unavailable [address] [place] [facility] [place] [address] CLAY MOSLEY Unavailable Unavailable SJ SANTACRUZ Unavailable [...] MEDICARE MEDICARE PART Jun 18, PART A [id number] DO KALYANI PATIENT (WNR) (M) A 2016 13A 1 UGLAS MEDICARE MEDICARE PART Jun 18, PART B [id number] DO KALYANI PATIENT (WNR) (M) B 2016 13A 1 LAS MEDICARE MEDICARE PART Jun 18, PART A [id number] KALYANIDO PATIENT (WNR) (M) A 2017 VH81 2 LAS MEDICARE MEDICARE PART Jun 18, PART B [id number] DO KALYANI PATIENT (WNR) (M) B 2017 VH81 2 UGLAS UNITED MEDICARE MCR(Jun 18 [id number] Luz AUGUSTE PATIENT HEALTHCARE ADVANTAGE NR) 2021 37 0 LAS [facility] (WNR) Selected Encounter This section includes the information on record at [place] for the Encounter. Date/Time Encounter Type Encounter Description Reason Provider Source October 17, 2021 03:07 Outpatient Encounter TELEPHONE TRIAGE PM IHE Encounter Template Text not used by [place] Plan of Treatment: Future Appointments (+ 6 months) and Future Tests (+/- 45 days) The Plan of Treatment section includes future care activities for the patient from all [place] treatmentfacilities. This section includes future appointments and future orders which are active, pending orscheduled.Future Appointments This section includes appointments that were scheduled to occur 6 months from the date of the Encounter, up to a maximum of 20 appointments. The data comes from all [place] treatment [facility]. Appointment Date/Time Appointment Type Appointment Facili ty Name October 18, 2021 02:00 PM AMBULATORY - MEDICINE [facility] November 15, 2021 10:00 AM AMBULATORY - MEDICINE [facility] Dec 01, 2021 10:30 AM [place] [facility] Dec 06, 2021 11:40 AM [place] [facility] Dec 21, 2021 08:00 AM AM[place]ULATORY - NONE [place] [facility] Jan 06, 2022 02:00 PM [place] [facility] Jan 10, 2022 11:30 AM AMBULATORY - MEDICINE [facility] Jan 24, 2022 08:00 AM [place] [facility] Feb 21, 2022 10:00 AM AM[place]UL[place]ORY [place] [facility] Mar 21, 2022 10:30 AM [facility] Active, Pending, and Scheduled Orders This section includes a listing of several types of active, pending, and scheduled orders, including clinic medications orders, diagnostic test orders, procedure orders and consult orders; where the start date of the order is 45 days before the date of the Encounter or 45 days after the date of the Encounter. The data comes from all [place] treatment [facility]. Test Date/Time Test Type Test Details Facility Name October 31, 2021 07:37 AM Consult Order COMMUNITY CARE-EGD Cons [facility] [employer] Telephone Clerk's Choice November 15, 2021 10:37 AM Consult Order COMMUNITY CARE-PODIATRY Co ns [facility] Telegraph [employer] Telephone Clerk's Choice Social History: Smoking Status (Most current) and Tobacco Use (All prior to encounter date) This section includes the most current, and the historical, smoking and tobacco-related health factors from the [place] facility where the Encounter took place.Current Smoking Status This section includes the most current smoking, or tobacco-related health factor, from the [place] facility where the Encounter took place. Date/Time Current Smoking Status Comment Facility Apr 01, 2020 01:16 PM QUIT TOBACCO USE 1-7 YEARS AGO [facility] Tobacco Use History This section includes a history of the smoking, or tobacco- related health factors, that were collected on or before the date of the Encounter. The data comes from the [place] facility where the Encounter took place. Date/Time Smoking Status/Tobacco Use Comment [facility] Mar 24, 2020 03:00 PM QUIT TOBACCO USE 1-7 YEARS AGO [facility] Feb 21, 2019 04:11 PM QUIT TOBACCO USE 1-7 YEARS AGO [facility] Feb 20, 2019 03:38 PM QUIT TOBACCO USE 1-7 YEARS AGO [facility] Feb 03, 2019 09:50 AM QUIT TOBACCO USE 1-7 YEARS AGO [facility] May 25, 2016 11:53 PM QUIT TOBACCO USE IN PAST YEAR [facility] May 23, 2016 06:57 PM QUIT TOBACCO USE > 7 YEARS AGO [facility] May 19, 2016 03:55 PM QUIT TOBACCO USE IN PAST YEAR [facility] May 19, 2016 10:29 AM QUIT TOBACCO USE 1-7 YEARS AGO [facility] May 01, 2016 07:26 PM QUIT TOBACCO USE IN PAST YEAR [facility] May 01, 2016 03:11 PM QUIT TOBACCO USE IN PAST YEAR [facility] May 01, 2016 11:19 AM QUIT TOBACCO USE IN PAST YEAR [facility] Mar 16, 2016 12:50 PM V1-PT DECLINES REF TO TOBACCO [facility] CESS PRGM Mar 16, 2016 12:50 PM V1-PT THINKING ABOUT QUIT [facility] TOBACCO USE Aug 12, 2015 08:48 AM CURRENT SMOKER CAREY Yates [facility] Encounter Notes: All associated encounter notes This section contains the clinical notes associated to the Encounter. Date/Time Encounter Note(s) Provider Source October 17, 2021 03:07 PM ADMINISTRATIVE NOTE: JANE PAREKH [facility] LOCAL TITLE: Has Admin Note STANDARD TITLE: ADMINISTRATIVE NOTE DATE OF NOTE: OCTOBER 17, 2021@15:07 ENTRY DATE: OCTOBER 17, 2021@15:07:25 AUTHOR: JANE PAREKH EXP COSIGNER: URGENCY: STATUS: COMPLETED Mailed Means Test Paperwork to [place] /es/ JANE PAREKH Signed: 10/17/2021 15:07
[2022-01-19 08:02] LABS: Abs Immature Grans 0.02 10^3/uL (0.0-0.06); Absolute Basophil Count 0.01 10^3/uL (0.0-0.2); Absolute Eosinophil Count 0.02 10^3/uL (0.0-0.7); Absolute Lymphocyte Count 0.69 10^3/uL (1.2-3.4); Absolute Monocyte Count 0.45 10^3/uL (0.1-0.8); Absolute Neutrophil Count 5.85 10^3/uL (1.2-6.7); Basophils % 0.1; Eosinophils % 0.3; HCT 37.9 % (40.0-50.0); HGB 11.6 g/dL (13.5-17.5); Immature Grans % 0.3; Lymphocytes % 9.8; MCH 26.5 pg (27.0-33.0); MCHC 30.6 % (32.0-36.0); MCV 87 fL (80-95); MPV 9.2 fL (8.0-11.0); Monocytes % 6.4; Neutrophils % 83.1; Platelet Count 225 10^3/uL (130-400); RBC 4.38 10^6/uL (4.36-5.78); RDW 17.2 % (11.8-14.1); RDW-SD 54.1 fL; WBC 7.04 10^3/uL (4.4-10.8)
--- OUTSIDE RECORDS SUMMARY | 2022-01-19 08:02 | XMS_ITS | Encounter Summary ---
:1950 Author Organization [facility] Address [address] [place] [phone] Support Name Relationship Address Phone YUSRA AUGUSTE Unavailable [address] [place] [address] YUSRA AUGUSTE Unavailable [address] [place] [facility] [place] [address] CLAY MOSLEY Unavailable Unavailable SJ SANTACRUZ Unavailable [...] MEDICARE MEDICARE PART Jun 18, PART A [id number] DO KALYANI PATIENT (WNR) (M) A 2016 13A 1 UGLAS MEDICARE MEDICARE PART Jun 18, PART B [id number] DO KALYANI PATIENT (WNR) (M) B 2016 13A 1 LAS MEDICARE MEDICARE PART Jun 18, PART A [id number] KALYANIDO PATIENT (WNR) (M) A 2017 VH81 2 LAS MEDICARE MEDICARE PART Jun 18, PART B [id number] DO KALYANI PATIENT (WNR) (M) B 2017 VH81 2 UGLAS UNITED MEDICARE MCR(Jun 18 [id number] Luz AUGUSTE PATIENT HEALTHCARE ADVANTAGE NR) 2021 37 0 LAS [facility] (WNR) Selected Encounter This section includes the information on record at [place] for the Encounter. Date/Time Encounter Type Encounter Description Reason Provider Source October 25, 2021 09:05 Outpatient Encounter TELEPHONE TRIAGE AM IHE Encounter Template Text not used by [place] Plan of Treatment: Future Appointments (+ 6 months) and Future Tests (+/- 45 days) The Plan of Treatment section includes future care activities for the patient from all [place] treatmentfacilities. This section includes future appointments and future orders which are active, pending orscheduled.Future Appointments This section includes appointments that were scheduled to occur 6 months from the date of the Encounter, up to a maximum of 20 appointments. The data comes from all [place] treatment [facility]. Appointment Date/Time Appointment Type Appointment Facili ty Name November 15, 2021 10:00 AM AMBULATORY - MEDICINE [facility] Dec 01, 2021 10:30 AM AMBUL[place]ORY - NONE [place] [facility] Dec 06, 2021 11:40 AM AM[place]ORY [place]IC[place] [facility] Dec 21, 2021 08:00 AM AMBULATORY - NONE [place] [facility] Jan 06, 2022 02:00 PM AM[place] [facility] Jan 10, 2022 11:30 AM AMBULATORY - MEDICINE [facility] Jan 24, 2022 08:00 AM [place] [facility] Feb 21, 2022 10:00 AM AMBUL[place]ORY [place] [facility] Mar 21, 2022 10:30 AM AMBULATORY - MEDICINE [facility] Active, Pending, and Scheduled [...] the Encounter. The data comes from all [place] treatment [facility]. Test Date/Time Test Type Test Details Facility Name October 31, 2021 07:37 AM Consult Order [facility] C[facility]EGD [facility] Cons Guest Services Representative's Choice November 15, 2021 10:37 AM Consult Order [facility] CARE-PODIATRY Cons Guest Services Representative's Choice Dec 06, 2021 12:52 PM [place] Infusion Order [facility] Dec 06, 2021 03:24 PM Pharmacy [place] [facility] [facility] Dec 06, 2021 03:40 PM Pharmacy - Clinic [facility] Infusion Order [facility] Social History: Smoking Status (Most current) and Tobacco Use (All prior to encounter date) This section includes the most current, and the historical, smoking and tobacco-related health factors from the [place] facility where the Encounter took place.Current Smoking Status This section includes the most current smoking, or tobacco-related health factor, from the [place] facility where the Encounter took place. Date/Time Current Smoking Status Comment Facility Apr 01, 2020 01:16 PM QUIT TOBACCO USE 1-7 YEARS AGO [facility] Tobacco Use History This section includes a history of the smoking, or tobacco- related health factors, that were collected on or before the date of the Encounter. The data comes from the [place] facility where the Encounter took place. Date/Time Smoking Status/Tobacco Use Comment [facility] Mar 24, 2020 03:00 PM QUIT TOBACCO USE 1-7 YEARS AGO [facility] Feb 21, 2019 04:11 PM QUIT TOBACCO USE 1-7 YEARS AGO [facility] Feb 20, 2019 03:38 PM QUIT TOBACCO USE 1-7 YEARS AGO [facility] Feb 03, 2019 09:50 AM QUIT TOBACCO USE 1-7 YEARS AGO [facility] May 25, 2016 11:53 PM QUIT TOBACCO USE IN PAST YEAR [facility] May 23, 2016 06:57 PM QUIT TOBACCO USE > 7 YEARS AGO [facility] May 19, 2016 03:55 PM QUIT TOBACCO USE IN PAST YEAR [facility] May 19, 2016 10:29 AM QUIT TOBACCO USE 1-7 YEARS AGO [facility] May 01, 2016 07:26 PM QUIT TOBACCO USE IN PAST YEAR [facility] May 01, 2016 03:11 PM QUIT TOBACCO USE IN PAST YEAR [facility] May 01, 2016 11:19 AM QUIT TOBACCO USE IN PAST YEAR [facility] Mar 16, 2016 12:50 PM V1-PT DECLINES REF TO TOBACCO [facility] CESS PRGM Mar 16, 2016 12:50 PM V1-PT THINKING ABOUT QUIT [facility] TOBACCO USE Aug 12, 2015 08:48 AM CURRENT SMOKER [facility] Encounter Notes: All associated encounter notes This section contains the clinical notes associated to the Encounter. Date/Time Encounter Note(s) Provider Source October 25, 2021 09:05 AM PRIMARY CARE ADMINISTRATIVE NOTE: KATIE MEDEL [facility] LOCAL TITLE: Administrative Note/Primary Care STANDARD TITLE: PRIMARY CARE ADMINISTRATIVE NOTE DATE OF NOTE: OCTOBER 25, 2021@09:05 ENTRY DATE: OCTOBER 25, 2021@09:05:38 AUTHOR: AKTIE WALLIS EXP COSIGNER: URGENCY: STATUS: COMPLETED Administrative Note/Primary Care Has ADDEND A vm left by vetean - following up with medication from appt last week- has yet received thru mail and has yet been contactd for nor heard about scheduling other procedures discussed - # /emely/ KATIE PABLO Signed: 10/25/2021 09:07 Receipt Acknowledged By: * AWAITING SIGNATURE * LIZZIE TINOCO * AWAITING SIGNATURE * ISATU NUNEZ 10/27/2021 13:35 /emely/ GEORGE DONIS 10/26/2021 ADDENDUM STATUS: COMPLETED will discuss with PCP and return patient call. /emely/ ISATU NUNEZ LPN Signed: 10/26/2021 08:11 10/27/2021 ADDENDUM STATUS: COMPLETED vm left from a female - wanting answers - attemp t to call back # - vm left team is awaiting provider dis cussion and will call with information /emely/ KATIE PABLO Signed: 10/27/2021 08:05 10/27/2021 ADDENDUM STATUS: COMPLETED advised spouse that PCP is working on orders. Pe r PCP EGD at [facility] and PPI for medication. She is concerned that it is taking d ays to get ordered. /emely/ GEORGE DONIS Signed: 10/27/2021 13:35
--- OUTSIDE RECORDS SUMMARY | 2022-01-19 08:02 | XMS_ITS | Encounter Summary ---
:1950 Author Organization Department [facility] Address [address] [place] [id number] Support Name Relationship Address Phone YUSRA AUGUSTE Unavailable [address] [place] [facility] [place] [address] YUSRA AUGUSTE Unavailable [address] [place] [facility] [place] [address] CLAY MOSLEY Unavailable Unavailable SJ SANTACRUZ Unavailable [...] MEDICARE MEDICARE PART Jun 18, PART A [id number] AUGUSTE DO PATIENT (WNR) (M) A 2016 13A 1 UGLAS MEDICARE MEDICARE PART Jun 18, PART B [id number] AUGUSTE DO PATIENT (WNR) (M) B 2017 13A 1 UGLAS MEDICARE MEDICARE PART Jun 18, PART B [id number] KALYANIDO PATIENT (WNR) (M) B 2017 VH81 2 UGLAS MEDICARE MEDICARE PART Jun 18, PART A [id number] KALYANIDO PATIENT (WNR) (M) A 2017 VH81 2 LAS UNITED MEDICARE MCR(W Jun 18 [id number] Luz AUGUSTE PATIENT HEALTHCARE ADVANTAGE NR) 2021 37 0 [facility] (WNR) Selected Encounter This section includes the information on record at [place] for the Encounter. Date/Time Encounter Type Encounter Description Reason Provider Source May 17, 2021 12:00 Outpatient Encounter EVENT (HISTORICAL) AM IHE Encounter Template Text not used by [facility] Plan of Treatment: Future Appointments (+ 6 months) and Future Tests (+/- 45 days) The Plan of Treatment section includes future care activities for the patient from all [place] [facility]. This section includes future appointments and future [...] AMBULATORY [place]IC[place] [facility] May 23, 2021 11:30 AM AMBULATORY [place]ICINE [place] [facility] Jun 09, 2021 08:00 AM AMBULATORY - NONE [place] [facility] Jun 13, 2021 09:00 AM AMBULATORY - NONE [place] [facility] Jun 14, 2021 08:30 AM AMB[place]ORY - [place]GERY [place] [facility] Jul 01, 2021 08:30 AM AMBULATORY - MEDICINE [facility] Jul 18, 2021 09:00 AM AMBUL[place]ORY [place]ICINE [place] [facility] Jul 18, 2021 10:30 AM AMBULATORY - [place]ICINE [place] [facility] Aug 03, 2021 08:00 AM AMBULATORY - NONE [place] [facility] Sep 05, 2021 08:00 AM AMBUL[place]ORY - [place]GERY [place] [facility] Sep 19, 2021 08:00 AM AMBULATORY - MEDICINE [facility] October 18, 2021 02:00 PM AMBULATORY - MEDICINE [facility] Lab Results: +/- 30 days of the encounter This section includes the Chemistry and Hematology Lab Results on record with [place] for the patient. Radiology Reports and Pathology Reports are provided separately, in subsequent sections.Lab Results This section contains the Chemistry/Hematology Results that were resulted 30 days before or 30 daysafter the date of the Encounter. Date/Time Source Result Type Result - Unit Interpretation Reference Range Comment May 16, 2021 09:44 [facility] THYROID TESTING Specimen Type: SERUM AM CASCADE Comment: Tests performed on TidePool (405) SN:[id number] TSH within normal limits. Reflex testing not required. Ordering Provid er: ISHMAEL CATES Report Released Date/Time: May 16, 2021 09:42 AM Reporting Lab: [facility] [address] [facility] [address] Performing Lab: [facility] [address] [facility] [address] TSH 1.08 0.35-5.00 REFLEX TESTING comment May 16, 2021 [facility] GLYCOHEMOGLOBIN (A1C ONLY) S pecimen Type: BLOOD 09:43 AM Comment: Tests performed on Hpam Manager Production (405) [id number] Ordering Provid er: ISHMAEL CATES Report Released Date/Time: May 16, 2021 09:42 AM Reporting Lab: [facility] [address] [facility] [address] Performing Lab: [facility] [address] [facility] [address] HEMOGLOBIN A1C 5.8 H 4.0-5.6 May 16, 2021 09:43 [facility] LIPOPROTEIN CHOLESTEROL S pecimen Type: PLASMA AM FRACT. PANEL Comment: Tests performed on Pham [employer] (405) [id number] Ordering Provid er: ISHMAEL CATES Report Released Date/Time: May 16, 2021 09:42 AM Reporting Lab: [facility] [address] [facility] [address] Performing Lab: [facility] [address] [facility] [address] CHOLESTEROL 208 H 0-199 TRIGLYCERIDE 176 H 0-149 HDL CHOLESTEROL 43 >40 LDL CHOLESTEROL (CALC) 130 H 0-129 May 16, 2021 [facility] P4 GLU,BUN,CREAT,LYTES,CA Sp ecimen Type: PLASMA 09:43 AM Comment: Tests performed on Pham Manager Production (405) [id number] Ordering Provid er: ISHMAEL CATES Report Released Date/Time: May 16, 2021 09:42 AM Reporting Lab: [facility] [address] [facility] [address] Performing Lab: [facility] [address] [facility] [address] UREA NITROGEN 18 7-25 SODIUM 134 L 135-145 POTASSIUM 4.9 3.5-5.0 CHLORIDE 99 L 100-110 CARBON DIOXIDE 21 20-30 ANION GAP 14 4-16 GLUCOSE 108 H 65-100 CREATININE 1.35 0.5-1.5 CALCIUM 9.6 8.5-10.5 eGFR 52 L >60 May 16, 2021 09:43 AM [facility] LIVER PROFILE Specim en Type: PLASMA Comment: Tests performed on TidePool (405) SN:[id number] Ordering Provid er: ISHMAEL CATES Report Released Date/Time: May 16, 2021 09:42 AM Reporting Lab: [facility] [address] [facility] [address] Performing Lab: [facility] [address] [facility] [address] PROTEIN, TOTAL 8.0 6.0-8.5 ALBUMIN 3.9 3.2-5.0 BILIRUBIN, TOTAL 0.6 0.2-1.2 ALKALINE PHOSPHATASE 102 40-150 ALT(SGPT) 18 7-52 AST(SGOT) 15 5-34 May 16, 2021 09:43 AM [facility] CBC PROFILE Specim en Type: BLOOD No comment enter ed. Ordering Provid er: ISHMAEL CATES Report Released Date/Time: May 16, 2021 09:42 AM Reporting Lab: [facility] [address] [facility] [address] Performing Lab: [facility] [address] [facility] [address] WBC 10.3 4.5-11.0 RBC 5.64 4.23-5.66 HGB [...] 8.1 H 2.2-7.6 ABSOLUTE NRBC 0.00 0-0 Immunizations: All administered on the encounter date This section contains immunizations associated to the Encounter. Immunization Series Date Issued Reaction Comments COVID-19 (MODERNA), MRNA, LNP-S, PF, 100 3 May 17, 2021 MCG/0.5ML DOSE OR 50 MCG/0.25ML DOSE Social History: Smoking Status (Most current) and Tobacco Use (All prior to encounter date) This section includes the most current, and the historical, smoking and tobacco-related health factors from the [place] facility where the Encounter took place.Current Smoking Status This section includes the most current smoking, or tobacco-related health factor, from the [place] facility where the Encounter took place. Date/Time Current Smoking Status Comment Facility Apr 01, 2020 01:16 PM QUIT TOBACCO USE 1-7 YEARS AGO [facility] Tobacco Use History This section includes a history of the smoking, or tobacco- related health factors, that were collected on or before the date of the Encounter. The data comes from the [place] facility where the Encounter took place. Date/Time Smoking Status/Tobacco Use Comment [facility] Mar 24, 2020 03:00 PM QUIT TOBACCO USE 1-7 YEARS AGO [facility] Feb 21, 2019 04:11 PM QUIT TOBACCO USE 1-7 YEARS AGO [facility] Feb 20, 2019 03:38 PM QUIT TOBACCO USE 1-7 YEARS AGO [facility] Feb 03, 2019 09:50 AM QUIT TOBACCO USE 1-7 YEARS AGO [facility] May 25, 2016 11:53 PM QUIT TOBACCO USE IN PAST YEAR [facility] May 23, 2016 06:57 PM QUIT TOBACCO USE > 7 YEARS AGO [facility] May 19, 2016 03:55 PM QUIT TOBACCO USE IN PAST YEAR [facility] May 19, 2016 10:29 AM QUIT TOBACCO USE 1-7 YEARS AGO [facility] May 01, 2016 07:26 PM QUIT TOBACCO USE IN PAST YEAR [facility] May 01, 2016 03:11 PM QUIT TOBACCO USE IN PAST YEAR [facility] May 01, 2016 11:19 AM QUIT TOBACCO USE IN PAST YEAR [facility] Mar 16, 2016 12:50 PM V1-PT DECLINES REF TO TOBACCO [facility] CESS PRGM Mar 16, 2016 12:50 PM V1-PT THINKING ABOUT QUIT [facility] TOBACCO USE Aug 12, 2015 08:48 AM CURRENT SMOKER CAREY Yates [facility]
--- OUTSIDE RECORDS SUMMARY | 2022-01-19 08:03 | XMS_ITS | Encounter Summary ---
:1950 Author Organization Department [facility] Address [address] [place] [id number] Support Name Relationship Address Phone YUSRA MEEK Unavailable [address] [place] [facility] [place] [address] YUSRA MEEK Unavailable [address] [place] [facility] [place] [place] [address] CLAY MOSLEY Unavailable Unavailable SJ SANTACRUZ Unavailable [...] MEDICARE MEDICARE PART Jun 18, PART A [id number] MEEK DO PATIENT (WNR) (M) A 2016 13A 1 [place] MEDICARE MEDICARE PART Jun 18, PART B [id number] MEEK DO PATIENT (WNR) (M) B 2017 13A 1 [place] MEDICARE MEDICARE PART Jun 18, PART B [id number] KALYANIDO PATIENT (WNR) (M) B 2017 VH81 2 [place]AS MEDICARE MEDICARE PART Jun 18, PART A [id number] KALYANIDO PATIENT (WNR) (M) A 2017 VH81 2 [place]AS UNITED MEDICARE MCR(W Jun 18 [id number] Luz MEEK PATIENT HEALTHCARE ADVANTAGE NR) 2021 37 0 [facility] (WNR) Selected Encounter This section includes the information on record at [facility] for the Encounter. Date/Time Encounter Type Encounter Description Reason Provider Source Jul 08, 2021 12:00 Outpatient Encounter EVENT (HISTORICAL) AM [facility] Encounter Template Text not used by [facility] Plan of Treatment: Future Appointments (+ 6 months) and Future Tests (+/- 45 days) The Plan of Treatment section includes future care activities for the patient from all [facility] treatmentfacilities. This section includes future appointments and future orders which are active, pending orscheduled.Future Appointments This section includes appointments that were scheduled to occur 6 months from the date of the Encounter, up to a maximum of 20 appointments. The data comes from all [facility] treatment facilities. Appointment Date/Time Appointment Type Appointment Facili ty Name Jul 18, 2021 09:00 AM AMBULATORY - MEDICINE [facility] Jul 18, 2021 10:30 AM [facility] Aug 03, 2021 08:00 AM AMBULATORY - NONE [facility] Sep 05, 2021 08:00 AM [facility] Sep 19, 2021 08:00 AM [facility]ICINE [facility] October 18, 2021 02:00 PM AMBULATORY - MEDICINE [facility] November 15, 2021 10:00 AM AMBULATORY - MEDICINE [facility] Dec 01, 2021 10:30 AM [facility] Dec 06, 2021 11:40 AM [facility] Dec 21, 2021 08:00 AM AMBULATORY - NONE [facility] Lab Results: +/- 30 days of the encounter This section includes the Chemistry and Hematology Lab Results on record with [facility] for the patient. Radiology Reports and Pathology Reports are provided separately, in subsequent sections.Lab Results This section contains the Chemistry/Hematology Results that were resulted 30 days before or 30 daysafter the date of the Encounter. Date/Time Source Result Type Result - Unit Interpretation Reference Range Comment Jul 01, 2021 08:17 [facility] LIPOPROTEIN CHOLESTEROL S pecimen Type: PLASMA AM FRACT. PANEL Comment: Tests performed on Shoplins 405 [id number] Ordering Provid er: ISHMAEL CATES Report Released Date/Time: May 30, 2021 09:07 AM Reporting Lab: [facility] [address] [facility] [id number] Performing Lab: CAREY MONTOYA [facility] [address] [facility] [address] CHOLESTEROL 187 0-199 TRIGLYCERIDE 153 H 0-149 HDL CHOLESTEROL 44 >40 LDL CHOLESTEROL (CALC) 112 0-129 Social History: Smoking Status (Most current) and Tobacco Use (All prior to encounter date) This section includes the most current, and the historical, smoking and tobacco-related health factors from the [facility] facility where the Encounter took place.Current Smoking Status This section includes the most current smoking, or tobacco-related health factor, from the [facility] facility where the Encounter took place. Date/Time Current Smoking Status Comment [facility] Apr 01, 2020 01:16 PM QUIT TOBACCO USE 1-7 YEARS AGO [facility] DOYLE [facility] Tobacco Use History This section includes a history of the smoking, or tobacco- related health factors, that were collected on or before the date of the Encounter. The data comes from the [facility] facility where the Encounter took place. Date/Time Smoking Status/Tobacco Use Comment [facility] Mar 24, 2020 03:00 PM QUIT TOBACCO USE 1-7 YEARS AGO [facility]Y DOYLE [facility] Feb 21, 2019 04:11 PM QUIT TOBACCO USE 1-7 YEARS AGO [facility] DOYLE [facility] Feb 20, 2019 03:38 PM QUIT TOBACCO USE 1-[address] [facility] Feb 03, 2019 09:50 AM QUIT TOBACCO USE 1-7 YEARS AGO [facility] DOYLE [facility] May 25, 2016 11:53 PM QUIT TOBACCO USE IN PAST [facility]AR [facility] May 23, 2016 06:57 PM QUIT TOBACCO USE > 7 YEARS AGO [facility] DOYLE [facility] May 19, 2016 03:55 PM QUIT TOBACCO USE IN PAST [facility]AR [facility] May 19, 2016 10:29 AM QUIT TOBACCO USE 1-7 YEARS AGO [facility] DOYLE [facility] May 01, 2016 07:26 PM QUIT TOBACCO USE IN PAST YEAR [facility] DOYLE [facility] May 01, 2016 03:11 PM QUIT TOBACCO USE IN PAST [facility]AR [facility] May 01, 2016 11:19 AM QUIT TOBACCO USE IN PAST YEAR C[facility]Y DUFFT [facility] Mar 16, 2016 12:50 PM V1-PT DECLINES REF TO TOBACCO [facility] Mar 16, 2016 12:50 PM V1-PT THINKING ABOUT QUIT [facility] TOBACCO USE Aug 12, 2015 08:48 AM CURRENT SMOKER CAREY Yates [facility] Pathology Reports: +/- 30 days of [...] the Encounter. The data comes from all [facility] facilities. Date/Time Pathology Report Provider Source Jul 20, 2021 08:24 AM LR SURGICAL PATHOLOGY REPORT: STEFANY MILLER [facility] LOCAL TITLE: LR SURGICAL PATHOLOGY REPORT [facility] STANDARD TITLE: PATHOLOGY REPORT DATE OF NOTE: JUL 20, 2021@08:24:41 ENTRY DATE: JUL 20, 2021@08:24:41 AUTHOR: NIURKA MILLER EXP COSIGNER: URGENCY: STATUS: COMPLETED $APHDR Reporting Lab: [facility] [CLIA# [id number]] [address] [place] [address] - - - - - - [...] DIAGNOSIS: BCC versus SCC Surgeon/physician: GUERA KLEIN LUMBER TALLIER =-=-=-=-=-=-=-=-=-=-=-=-=-=- =-=-=-=-=-=-=-=-=-=-=-=-=-=-=-=-=-=-=-=-=-=-=-=-=-= - - - - - [...] Lucas Meek Paperwork: Lucas Meek Cassette: S2;.;Luz MEEK;.;405;[id number] Specimen is labeled: left lateral forearm Received in formalin are two shave biopsies of skin, 1.1 x 0.8 and 1.0 x 0.8 cm. Submitted entirely in 1 cassette [id number];.;Luz MEEK;.;015;[id number] 07/18/2021 Microscopic exam: DIAGNOSIS: A. Shave biopsy skin, left lateral forearm: Squamous cell carcinoma, transected The attending pathologist who signature mansoor ears on this report has reviewed all diagnostic slides and has edited t he gross and/or microscopic portion of this report in rendering the final pathologic diagnosis. [address] [address] CPT: 85438 /emely/ NIURKA Yeung MD Signed Jul 20, 2021@08:24 Performing Laboratory: Surgical Pathology Report Performed By: [facility] [CLIA# [id number]] [address] [place] [phone] $FTR - - - - - [...] - - - - - - - LCUAS MEEK STANDARD FORM 515 ID:[id number] SEX:M :1950 AGE: 71 LOC: MINI TER PCP: Ishmael Rahman /emely/ NIURKA Yeung MD Signed: 07/20/2021 08:24
--- OUTSIDE RECORDS SUMMARY | 2022-01-19 08:03 | XMS_ITS ---
:1950 Author Organization [facility] rs Address [address] [place] [id number] Support Name Relationship Address Phone YUSRA AUGUSTE Unavailable [address] [place] [address] YUSRA AUGUSTE Unavailable [address] [place] [place] [address] CLAY MOSLEY Unavailable Unavailable SJ SANTACRUZ Unavailable [...] MEDICARE MEDICARE PART Jun 18, PART A [id number] DO KALYANI PATIENT (WNR) (M) A 2016 13A 1 UGLAS MEDICARE MEDICARE PART Jun 18, PART B [id number] KALYANIDO PATIENT (WNR) (M) B 2016 13A 1 LAS MEDICARE MEDICARE PART Jun 18, PART A [id number] KALYANI ,DO PATIENT (WNR) (M) A 2017 VH81 2 LAS MEDICARE MEDICARE PART Jun 18, PART B [id number] KALYANIDO PATIENT (WNR) (M) B 2017 VH81 2 LAS UNITED MEDICARE MCR(W Jun 18 [id number] Luz AUGUSTE PATIENT HEALTHCARE ADVANTAGE NR) 2021 37 0 [facility] (WNR) Selected Encounter This section includes the information on record at [place] for the Encounter. Date/Time Encounter Type Encounter Description Reason Provider Source Nov 16, 2021 10:36 Outpatient Encounter ADMIN PAT LILIAM COLON (CHITO SHIELDS Encounter Template Text not used by [place] Plan of Treatment: Future Appointments (+ 6 months) and Future Tests (+/- 45 days) The Plan of Treatment section includes future care activities for the patient from all [place] treatmentfacilities. This section includes future appointments and [...] AMBULATORY - NONE [place] [facility] Dec 06, 2021 11:40 AM [place]IC[place] [facility] Dec 21, 2021 08:00 AM AMBULATORY - NONE [place] [facility] Jan 06, 2022 02:00 PM [place] [facility] Jan 10, 2022 11:30 AM [facility] - [facility]INE [facility] Jan 24, 2022 08:00 AM [place] [facility] Feb 21, 2022 10:00 AM [facility] [place] [facility] Mar 21, 2022 10:30 AM [facility]UL[facility] - MEDICINE [facility] Active, Pending, and Scheduled Orders This section includes a listing of several types of active, pending, and scheduled orders, including clinic medications orders, diagnostic test orders, procedure orders and consult orders; where the start date of the order is 45 days before the date of the Encounter or 45 days after the date of the Encounter. The data comes from all [place] treatment [facility]. Test Date/Time Test Type Test Details Facility Name October 31, 2021 07:37 AM Consult Order [facility] Cons Interior Design Director's Choice November 15, 2021 10:37 AM Consult Order [facility] CARE-PODIATRY Cons Interior Design Director's Choice Dec 06, 2021 12:52 PM [place] [facility] [place] [facility] Dec 06, 2021 03:24 PM [place] [facility] Dec 06, 2021 03:40 PM [place] [facility] Dec 15, 2021 08:41 AM Consult Order SPEECH PATHOLOGY [place] Cons [facility] Interior Design Director's Choice Lab Results: +/- 30 days of [...] Interpretation Reference Range Comment Dec 15, 2021 [place] GLU,BUN,CREAT,LYTES,CA Speci men Type: PLASMA 06:43 AM [facility] Comment: Tests performed on Cloud Sustainability (405) SN:[id number] Ordering Provid er: ISATU TODD Report Released Date/Time: Dec 11, 2021 07:42 AM Reporting Lab[facility] [address] [address] Performing Lab: [facility] [address] [address] UREA NITROGEN 9 7-25 SODIUM 137 135-145 [...] Dec 10, 2021 07:22 AM Reporting Lab: [facility] [address] [address] Performing Lab: [facility] [address] [address] WBC 5.7 4.5-11.0 RBC 4.22 L 4.23-5.66 [...] ABSOLUTE NRBC 0.00 0-0 Dec 14, 2021 [facility] CYTOGENETIC Specimen Type: ESOPHAGUS 02:59 PM [facility] Comment: ~For T est: CYTOGENETIC FISH([facility] ~FISH HER 2 NUE, FFPE See full report in [email or web address] Image display viewer/tab#LAB-Reference Ordering Provid er: NIURKA MILLER Report Released Date/Time: Dec 21, 2021 12:11 PM Reporting Lab: [facility] [address] [address] Performing Lab: [facility] CYTOGENETIC FISH([facility] comment Dec 14, 2021 [facility] P4 GLU,BUN,CREAT,LYTES,CA Speci men Type: PLASMA 06:27 AM [facility] Comment: Tests performed on Cloud Sustainability (405) SN:[id number] Ordering Provid er: ISATU TODD Report Released Date/Time: Dec 11, 2021 07:42 AM Reporting Lab: [facility] [address] [address] Performing Lab: [facility] [address] [address] UREA NITROGEN 10 7-25 SODIUM 137 135-145 POTASSIUM 4.0 3.5-5.0 CHLORIDE 104 100-110 CARBON DIOXIDE 25 20-30 ANION GAP 8 4-16 GLUCOSE 99 65-100 CREATININE 0.67 0.5-1.5 CALCIUM 8.2 L 8.5-10.5 eGFR(CKD-EPI 2020) >90.0 >60 Dec 14, 2021 06:[address] [facility] CBC PROFILE Sp ecimen Type: BLOOD No comment enter ed. Ordering Provid er: ISATU TODD Report Released Date/Time: Dec 10, 2021 07:22 AM Reporting Lab: [facility] [address] [address] Performing Lab: [facility] [address] [address] WBC 6.0 4.5-11.0 RBC 4.29 4.23-5.66 HGB [...] ABSOLUTE NRBC 0.00 0-0 Dec 13, 2021 [facility] P4 GLU,BUN,CREAT,LYTES,CA Speci men Type: PLASMA 06:34 AM [facility] Comment: Tests performed on Cloud Sustainability 405 SN:[id number] Ordering Provid er: ISATU TODD Report Released Date/Time: Dec 11, 2021 07:42 AM Reporting Lab: [facility] [address] [address] Performing Lab: [facility] [address] [address] UREA NITROGEN 12 7-25 SODIUM 136 135-145 POTASSIUM 3.9 3.5-5.0 CHLORIDE 105 100-110 CARBON DIOXIDE 24 20-30 ANION GAP 7 4-16 GLUCOSE 102 H 65-100 CREATININE 0.66 0.5-1.5 CALCIUM 8.3 L 8.5-10.5 eGFR(CKD-EPI 2020) >90.0 >60 Dec 13, 2021 06:[address] [facility] CBC PROFILE Sp ecimen Type: BLOOD No comment enter ed. Ordering Provid er: ISATU TODD Report Released Date/Time: Dec 10, 2021 07:22 AM Reporting Lab: [facility] [address] [address] Performing Lab: [facility] [address] [address] WBC 5.6 4.5-11.0 RBC 4.28 4.23-5.66 HGB [...] 4.4 2.2-7.6 ABSOLUTE NRBC 0.00 0-0 Dec 12, 2021 [facility] P4 GLU,BUN,CREAT,LYTES,CA Speci men Type: PLASMA 06:21 AM [facility] Comment: Tests performed on Cloud Sustainability (405) SN:[id number] Ordering Provid er: ISATU TODD Report Released Date/Time: Dec 11, 2021 07:42 AM Reporting Lab: [facility] [address] [address] Performing Lab: [facility] [address] [address] UREA NITROGEN 11 7-25 SODIUM 139 135-145 POTASSIUM 4.1 3.5-5.0 CHLORIDE 107 100-110 CARBON DIOXIDE 24 20-30 ANION GAP 8 4-16 GLUCOSE 110 H 65-100 CREATININE 0.70 0.5-1.5 CALCIUM 8.3 L 8.5-10.5 eGFR(CKD-EPI 2020) >90.0 >60 Dec 12, 2021 06:[address] [facility] CBC PROFILE Sp ecimen Type: BLOOD No comment enter ed. Ordering Provid er: ISATU TODD Report Released Date/Time: Dec 10, 2021 07:22 AM Reporting Lab: [facility] [address] [address] Performing Lab: [facility] [address] [address] WBC 5.5 4.5-11.0 RBC 4.37 4.23-5.66 HGB [...] 0.00 0-0 Dec 12, 2021 06:00 AM [place] [facility] MAGNESIUM Sp ecimen Type: PLASMA Comment: Testin g Performed on Pham Quitbit (405) SN:[id number] Ordering Provid er: ISATU TODD Report Released Date/Time: Dec 12, 2021 08:24 AM Reporting Lab: [facility] [address] [address] Performing Lab: [facility] [address] [address] MAGNESIUM 1.8 1.6-2.6 Dec 12, 2021 06:00 AM [facility] PHOSPHORUS Sp ecimen Type: PLASMA Comment: Testin g Performed on Cloud Sustainability (405) SN:[id number] Ordering Provid er: ISATU TODD Report Released Date/Time: Dec 12, 2021 08:24 AM Reporting Lab: [facility] [address] [address] Performing Lab: [facility] [address] [address] PHOSPHORUS 3.1 2.5-5.0 Dec 11, 2021 06:15 AM [facility] ELECTROLYTES Sp ecimen Type: PLASMA Comment: Tests performed on Cloud Sustainability (405) SN:[id number] Ordering Provid er: ISATU TODD Report Released Date/Time: Dec 10, 2021 07:22 AM Reporting Lab: [facility] [address] [address] Performing Lab: [facility] [address] [address] SODIUM 137 135-145 POTASSIUM 4.3 3.5-5.0 CHLORIDE 108 100-110 CARBON DIOXIDE 20 20-30 ANION GAP 9 4-16 Dec 11, 2021 06:15 AM [facility] CBC PROFILE Sp ecimen Type: BLOOD Comment: Result s checked Ordering Provid er: ISATU TODD Report Released Date/Time: Dec 10, 2021 07:22 AM Reporting Lab: [facility] [address] [address] Performing Lab: [facility] [address] [address] WBC 5.8 4.5-11.0 RBC 4.37 4.23-5.66 HGB [...] 0.00 0-0 Dec 11, 2021 06:00 AM [facility] PHOSPHORUS Sp ecimen Type: PLASMA Comment: Tests performed on Cloud Sustainability (323) SN:[id number] Results checked Ordering Provid er: ISATU TODD Report Released Date/Time: Dec 11, 2021 07:44 AM Reporting Lab: [facility] [address] [address] Performing Lab: [facility] [address] [place] [facility] [place] [address] PHOSPHORUS 3.0 2.5-5.0 Dec 10, 2021 08:05 AM [place] [facility] MAGNESIUM Sp ecimen Type: PLASMA Comment: [place] [id number] on Dec 10, 2021@08:31 Tests performed on Cloud Sustainability (405) SN:[id number] Ordering Provid er: ISATU TODD Report Released Date/Time: Dec 10, 2021 07:22 AM Reporting Lab: [place] [facility] [address] [place] [facility] [place] [address] Performing Lab: [place] [facility] [address] [place] [facility] [place] [address] MAGNESIUM 1.7 1.6-2.6 Dec 10, 2021 08:05 AM [place] [facility] PHOSPHORUS Sp ecimen Type: PLASMA Comment: [place] [id number] on Dec 10, 2021@08:31 Tests performed on Cloud Sustainability (405) SN:[id number] Ordering Provid er: ISATU TODD Report Released Date/Time: Dec 10, 2021 07:22 AM Reporting Lab: [place] [facility] [address] [place] [facility] [place] [address] Performing Lab: [place] [facility] [address] [place] [facility] [place] [address] PHOSPHORUS 1.8 L 2.5-5.0 Dec 10, 2021 08:05 AM [place] UREA NITROGEN Specimen Type: PLASMA [facility] Comment: [place] [id number] on Dec 10, 2021@08:31 Tests performed on Cloud Sustainability (405) SN:[id number] Ordering Provid er: ISATU TODD Report Released Date/Time: Dec 10, 2021 07:22 AM Reporting Lab: [place] [facility] [address] [place] [facility] [place] [address] Performing Lab: [place] [facility] [address] [place] [facility] [place] [address] UREA NITROGEN 8 7-Dec 10, 2021 08:05 AM [place] [facility] CALCIUM Sp ecimen Type: PLASMA Comment: [place] [id number] on Dec 10, 2021@08:31 Tests performed on Cloud Sustainability (405) SN:[id number] Ordering Provid er: TODD,ISATU E Report Released Date/Time: Dec 10, 2021 07:22 AM Reporting Lab: [place] [facility] [address] [place] [facility] [place] [address] Performing Lab: [place] [facility] [address] [address] CALCIUM 8.3 L 8.5-10.5 Dec 10, 2021 08:05 AM [place] [facility] GLUCOSE Sp ecimen Type: PLASMA Comment: [place] [id number] on Dec 10, 2021@08:31 Tests performed on Pham Quitbit (405) SN:[id number] Ordering Provid er: ISATU TODD Report Released Date/Time: Dec 10, 2021 07:22 AM Reporting Lab: [place] [facility] [address] [address] Performing Lab: [place] [facility] [address] [address] GLUCOSE 144 H 65-100 Dec 10, 2021 08:05 AM [place] [facility] ELECTROLYTES Sp ecimen Type: PLASMA Comment: [place] [id number] on Dec 10, 2021@08:31 Tests performed on Cloud Sustainability (405) SN:[id number] Ordering Provid er: ISATU TODD Report Released Date/Time: Dec 10, 2021 07:22 AM Reporting Lab: [place] [facility] [address] [address] Performing Lab: [place] [facility] [address] [address] SODIUM 139 135-145 POTASSIUM 3.7 3.5-5.0 CHLORIDE 107 100-110 CARBON DIOXIDE 24 20-30 ANION GAP 8 4-16 Dec 10, 2021 08:05 [place] CREATININE WITH eGFR Specime n Type: PLASMA AM [facility] PANEL Comment: [place] [id number] on Dec 10, 2021@08:31 Tests performed on Pham Quitbit (405) SN:[id number] Ordering Provid er: ISATU TODD Report Released Date/Time: Dec 10, 2021 07:22 AM Reporting Lab: [place] [facility] [address] [address] Performing Lab: [place] [facility] [address] [address] CREATININE 0.78 0.5-1.5 eGFR(CKD-EPI 2020) >90.0 >60 Dec 10, 2021 08:05 AM [facility] CBC PROFILE Sp ecimen Type: BLOOD No comment enter ed. Ordering Provid er: ISATU TODD Report Released Date/Time: Dec 10, 2021 07:22 AM Reporting Lab: [facility] [address] [address] Performing Lab: [facility] [address] [address] WBC 7.0 4.5-11.0 RBC 4.54 4.23-5.66 HGB [...] 6.2 2.2-7.6 ABSOLUTE NRBC 0.00 0-0 Dec 09, 2021 06:46 AM [facility] MAGNESIUM Sp ecimen Type: PLASMA Comment: Tests performed on Cloud Sustainability 405 SN:[id number] Ordering Provid er: ISATU TODD Report Released Date/Time: Dec 08, 2021 10:23 AM Reporting Lab: [facility] [address] [address] Performing Lab: [facility] [address] [address] MAGNESIUM 1.6 1.6-2.6 Dec 09, 2021 [facility] P4 GLU,BUN,CREAT,LYTES,CA Speci men Type: PLASMA 06:46 AM [facility] Comment: Tests performed on Cloud Sustainability (405) SN:[id number] Ordering Provid er: ISATU TODD Report Released Date/Time: Dec 08, 2021 05:00 PM Reporting Lab: [facility] [address] [address] Performing Lab: [facility] [address] [address] UREA NITROGEN 6 L 7-25 SODIUM 134 L 135-145 POTASSIUM 3.7 3.5-5.0 CHLORIDE 103 100-110 CARBON DIOXIDE 23 20-30 ANION GAP 8 4-16 GLUCOSE 112 H 65-100 CREATININE 0.70 0.5-1.5 CALCIUM 8.1 L 8.5-10.5 eGFR(CKD-EPI 2020) >90.0 >60 Dec 09, 2021 06:46 AM [facility] CBC PROFILE Sp ecimen Type: BLOOD No comment enter ed. Ordering Provid er: ISATU TODD Report Released Date/Time: Dec 08, 2021 05:00 PM Reporting Lab: [facility] [address] [address] Performing Lab: [facility] [address] [address] WBC 7.1 4.5-11.0 RBC 4.40 4.23-5.66 HGB [...] 0.00 0-0 Dec 08, 2021 06:39 AM [place] [facility] MAGNESIUM Sp ecimen Type: PLASMA Comment: Testin g Performed on Pham Water Pump Operator (405) SN:[id number] Ordering Provid er: ISATU TODD Report Released Date/Time: Dec 07, 2021 10:32 AM Reporting Lab: [place] [facility] [address] [address] Performing Lab: [facility] [address] [address] MAGNESIUM 1.5 L 1.6-2.6 Dec 08, 2021 [place] P4 GLU,BUN,CREAT,LYTES,CA Speci men Type: PLASMA 06:39 AM [facility] Comment: Testin g Performed on Cloud Sustainability (405) SN:[id number] Ordering Provid er: ISATU TODD Report Released Date/Time: Dec 07, 2021 10:32 AM Reporting Lab: [place] [facility] [address] [address] Performing Lab: [place] [facility] [address] [address] UREA NITROGEN 6 L 7-25 SODIUM 136 135-145 POTASSIUM 3.3 L 3.5-5.0 CHLORIDE 104 100-110 CARBON DIOXIDE 22 20-30 ANION GAP 10 4-16 GLUCOSE 133 H 65-100 CREATININE 0.76 0.5-1.5 CALCIUM 8.4 L 8.5-10.5 eGFR(CKD-EPI 2020) >90.0 >60 Dec 08, 2021 06:39 AM [place] [facility] CBC PROFILE Sp ecimen Type: BLOOD No comment enter ed. Ordering Provid er: ISATU TODD Report Released Date/Time: Dec 07, 2021 10:32 AM Reporting Lab: [facility] [address] [address] Performing Lab: [facility] [address] [address] WBC 8.4 4.5-11.0 RBC 4.75 4.23-5.66 HGB [...] 7.5 2.2-7.6 ABSOLUTE NRBC 0.00 0-0 Dec 07, 2021 [facility] P4 GLU,BUN,CREAT,LYTES,CA Speci men Type: PLASMA 06:42 AM [facility] Comment: Tests performed on Cloud Sustainability 405 SN:[id number] Ordering Provid er: PORFIRIO WALTERS Report Released Date/Time: Dec 06, 2021 06:57 PM Reporting Lab: [facility] [address] [address] Performing Lab: [facility] [address] [address] UREA NITROGEN 9 7-25 SODIUM 135 135-145 POTASSIUM 3.5 3.5-5.0 CHLORIDE 103 100-110 CARBON DIOXIDE 22 20-30 ANION GAP 10 4-16 GLUCOSE 92 65-100 CREATININE 0.73 0.5-1.5 CALCIUM 8.0 L 8.5-10.5 eGFR(CKD-EPI 2020) >90.0 >60 Dec 07, 2021 06:42 [place] LIVER PROFILE Specimen Typ e: PLASMA AM [facility] Comment: Tests performed on Cloud Sustainability (405) SN:[id number] Ordering Provid er: PORFIRIO WALTERS Report Released Date/Time: Dec 06, 2021 06:57 PM Reporting Lab: [facility] [address] [address] Performing Lab: [facility] [address] [address] PROTEIN, TOTAL 5.7 L 6.0-8.5 ALBUMIN 2.4 L 3.2-5.0 BILIRUBIN, TOTAL 0.4 0.2-1.2 ALKALINE PHOSPHATASE 109 40-150 ALT(SGPT) 10 7-52 AST(SGOT) 15 5-34 FIB-4 SCORE 1.92 <2.67 Dec 07, 2021 06:42 AM [facility] CBC PROFILE Specimen Type: BLOOD [facility] No comment enter ed. Ordering Provid er: PORFIRIO WALTERS Report Released Date/Time: Dec 06, 2021 06:57 PM Reporting Lab: [facility] [address] [address] Performing Lab: [facility] [address] [address] WBC 5.7 4.5-11.0 RBC 4.15 L 4.23-5.66 [...] ABSOLUTE NRBC 0.00 0-0 Dec 07, [address] [place] [address] (ABS & Specimen Type: BLOOD 06:00 AM [facility] %) AUTOMATED Comment: Tests performed on Cloud Sustainability (405) SN:[id number] Ordering Provid er: ISATU TODD Report Released Date/Time: Dec 07, 2021 10:28 AM Reporting Lab: [place] [facility] [address] [address] Performing Lab: [place] [facility] [address] [address] RETICULOCYTES (%) AUTOMATED 1.23 0. 6-2.0 RETICULOCYTES (ABS) AUTOMATED 0.052 0.030-0.090 Dec 06, 2021 09:45 [place] MRSA SURVL NARES Specimen Ty pe: NARES PM [facility] DNA No comment enter ed. Ordering Provid er: ALVARO VARGHESE Report Released Date/Time: Dec 07, 2021 02:20 AM Reporting Lab: [place] [facility] [address] [address] Performing Lab: [place] [facility] [address] [place] [facility] [place] [place] [address] MRSA SURVL NARES DNA NEGATIVE NEGATIVE Dec 06, 2021 06:00 [place] URINALYSIS W/REFLEX TO Speci men Type: URINE PM [facility] CULTURE No comment enter ed. Ordering Provid er: JELANI SÁNCHEZ Report Released Date/Time: Dec 06, 2021 11:57 AM Reporting Lab: [place] [facility] [address] [address] Performing Lab: [place] [facility] [address] [address] URINE COLOR Arlin YELLOW SPECIFIC GRAVITY 1.029 [...] URINE NEG NEG WBC SCREEN NEG NEG Tom WHITE SARS-COV-2 Specimen Type: NASOPHARYNX 21, RIVER VARIANT Comment: https://www.cdc.gov/coronavirus/2019-ncov/cases-updates/variant- surveillance/variant-info.html The KIXEYE SARS CoV 2 [employer] Assay-GX is a next-generation sequencing (NGS) assa 2021 [facility] SEQUENCING y that determine s the complete genome sequence of the SARS-CoV-2 virus. The assay contains variant-tolerant primers to broaden and improve the coverage for variant detection and increase the sensitivity 12:00 [facility] PNL(WH) of the panel to enable detection from lower viral titer samples. The assay is run on the Long Tail Sequencer, which performs automated library preparation, sequencing, analysis, and reporting. PM The sequence an alysis includes determination of viral phylogenetic lineage by comparison to the reference strain Wuhan-Hu-1, GenBank: [id number]. Sequence determination may not be possible owing [...] and its performance characteristics determined by the [facility] Molecular Diagnostics Laboratory, which is certified under the Clinical Laboratory Improveme nt Amendments (C MARCO) as qualified to perform high complexity clinical laboratory testing. This test is validated for clinical use at [facility] and should not be regarded as investigational or for research. The FDA does not require this test to go through premarket FDA review, and therefore it has not been cleared or approved by the FDA. This report was reviewed and approved by the on-service pathologist. Ordering Provid er: JELANI SÁNCHEZ Report Released Date/Time: Dec 06, 2021 01:13 PM Reporting Lab: [facility] [address] [address] Performing Lab: [facility] [address] [facility] [address] SARS-CoV-2 CLADE() 22C (OMICRON) SARS-CoV-2 LINEAGE() BA.2.12.1 Dec 06, 2021 12:00 [facility] COVID-19 AG SCREEN Specimen Type: NASAL CAVITY PM [facility] PANEL BINAX(405) Comment: Testi ng Performed By: Mike Briscoe Ordering Provid er: JELANI SÁNCHEZ Report Released Date/Time: Dec 08, 2021 08:23 AM Reporting Lab: [facility] [address] [address] Performing Lab: [facility] [address] [address] COVID-19 AG SCRN(wrj BINAX) POSITIVE HH NE G Dec 06, 2021 12:00 PM [facility] LIVER PROFILE Sp ecimen Type: PLASMA Comment: Testin g Performed on [employer] Water Pump Operator (405) [id number] Ordering Provid er: JELANI SÁNCHEZ Report Released Date/Time: Dec 06, 2021 11:57 AM Reporting Lab: [facility] [address] [address] Performing Lab: [facility] [address] [address] PROTEIN, TOTAL 6.6 6.0-8.5 ALBUMIN 2.8 L 3.2-5.0 BILIRUBIN, TOTAL 0.6 0.2-1.2 ALKALINE PHOSPHATASE 134 40-150 ALT(SGPT) 13 7-52 AST(SGOT) 18 5-34 FIB-4 SCORE 1.94 <2.67 Dec 06, 2021 12:00 PM [facility] TROPONIN II Sp ecimen Type: PLASMA Comment: Tests performed on [employer] Pump Operator (405) [id number] Ordering Provid er: JELANI SÁNCHZE Report Released Date/Time: Dec 06, 2021 11:57 AM Reporting Lab: [facility] [address] [address] Performing Lab: [facility] [address] [address] TROPONIN II 0.03 0.00-0.29 Dec 06, 2021 [facility]T P4 GLU,BUN,CREAT,LYTES,CA Speci men Type: PLASMA 12:00 PM [facility] Comment: Testin g Performed on [employer] Pump Operator (405) [id number] Ordering Provid er: JELANI SÁNCHEZ Report Released Date/Time: Dec 06, 2021 11:57 AM Reporting Lab: [facility] [address] [address] Performing Lab: [facility] [address] [address] UREA NITROGEN 13 7-25 SODIUM 138 135-145 POTASSIUM 3.8 3.5-5.0 CHLORIDE 103 100-110 CARBON DIOXIDE 23 20-30 ANION GAP 12 4-16 GLUCOSE 105 H 65-100 CREATININE 0.90 0.5-1.5 CALCIUM 8.7 8.5-10.5 eGFR(CKD-EPI 2020) >90.0 >60 Dec 06, 2021 12:00 PM [facility] BNP(P[facility] Sp ecimen Type: PLASMA Comment: Tests performed on Pham Water Pump Operator (405) [id number] Ordering Provid er: JELANI SÁNCHEZ Report Released Date/Time: Dec 06, 2021 11:57 AM Reporting Lab: [facility] [address] [address] Performing [facility]: [facility] [address] [address] BNP(P) 224.8 H 10-100 Dec 06, 2021 [facility] COVID-[facility]+FLU/RSV DIAGNOSTIC Spe cimen Type: NASOPHARYNX 12:00 PM [facility] PANEL(405) Comment: Tests performed on discoapi Genexpert (405) Critical results called to and read back by: ALESHIA WILKINSON RN 12/06/21 @ 1312 Ordering Provid er: JELANI SÁNCHEZ Report Released Date/Time: Dec 06, 2021 11:57 AM Reporting Lab: [place] [facility] [address] [address] [facility] [address] [address] FLU A(PCR) NEGATIVE NEGATIVE FLU B(PCR) NEGATIVE NEGATIVE RSV(PCR) NEGATIVE NEGATIVE COVID-19(VJV-okd-XJBVLRESA) DETECTED HH NO T DETECTED Dec 06, 2021 12:[address] [facility] CBC PROFILE Sp ecimen Type: BLOOD No comment enter ed. Ordering Provid er: JELANI SÁNCHEZ Report Released Date/Time: Dec 06, 2021 11:57 AM Reporting Lab: [facility] [address] [address] Performing Lab: [facility] [address] [address] WBC 7.2 4.5-11.0 RBC 4.86 4.23-5.66 HGB [...] GRANULOCYTES 5.9 2.2-7.6 ABSOLUTE NRBC 0.00 0-0 Social History: [...] the Encounter. The data comes from the [facility] where the Encounter took place. Date/Time Smoking Status/Tobacco Use Comment [facility] Mar 24, 2020 03:00 PM QUIT TOBACCO USE 1-[address] [facility] Feb 21, 2019 04:11 PM QUIT TOBACCO USE 1-[address] [facility] Feb 20, 2019 03:38 PM QUIT TOBACCO USE 1-[address] [facility] Feb 03, 2019 09:50 AM QUIT TOBACCO USE 1-[address] [facility] May 25, 2016 11:53 PM QUIT TOBACCO USE IN PAST YEAR [facility] May 23, 2016 06:57 PM QUIT TOBACCO USE > [address] [facility] May 19, 2016 03:55 PM QUIT TOBACCO USE IN PAST YEAR [facility] May 19, 2016 10:29 AM QUIT TOBACCO USE 1-[address] [facility] May 01, 2016 07:26 PM QUIT TOBACCO USE IN PAST YEAR [facility] May 01, 2016 03:11 PM QUIT TOBACCO USE IN PAST YEAR [facility] May 01, 2016 11:19 AM QUIT TOBACCO USE IN PAST YEAR [facility] Mar 16, 2016 12:50 PM V1-PT DECLINES REF TO TOBACCO [facility] CESS PRGM Mar 16, 2016 12:50 PM V1-PT THINKING ABOUT QUIT [facility] TOBACCO USE Aug 12, 2015 08:48 AM CURRENT SMOKER [facility] Radiology Reports: +/- 30 days of the [...] the Encounter. The data comes from all [place] treatment facilities. Date/Time Radiology Report Provider Source Dec 13, 2021 12:57 PM MRI ABDOMEN W/WO CONTRAST: MARYELLEN LONG [place] [facility] N [id number] -1950 M [facility] Exm Date: DEC 13, 2021@12:57 Req Phys: ISATU TODD Loc: OP Unknown/0 12-15-2021@13:20 Img Loc: MRI IMAGING (OOS) Service: [facility]GENERAL MEDICINE (Case [id number] COMPLETE) MRI ABDOMEN W/WO CONTRAST (M RI Detailed) CPT:43428 Reason for Study: further characterization of a [...] new lyphadenopathy REQUESTING MD: Isatu Todd PAGER: [phone] PHONE: [phone] Weight: 232.2 lb [105.32 kg] (12/12/2021 05:00) [...] Is the patient claustrophobic? Yes If yes, kesha donnelly prescribe an oral anxiolytic (such as Ativan) for the patien t to take with him/her to the MRI appointment.The patient will need to arrange for a equipment driver to take him/her home after the [...] 15, 2021 Date Verified: DEC 15, 2021 Classified Ad Taker E-Sig:/ES/MARYELLEN LONG Report: MRI ABDOMEN W/WO CONTRAST [...] concerning for metastases. Please see the saved Mahan Image(s) at the end of this study for pertinent findings. Findings reviewed with the medicine team on 11/17. Primary Diagnostic Code: SIGNIFICANT ABNORMALIT Y ATTENTION NEEDED Secondary Diagnostic Codes: POSSIBLE MALIGNANCY Primary Interpreting Staff: MARYELLEN LONG Staff (Classified Ad Taker) / Dec 10, 2021 09:[address] ABDOMEN & PELVIS: RADIOLOGY,OUTSIDE [facility] LUC[place] AUGUSTE N [id number] -1950 [facility] Exm Date: DEC 10, 2021@09:30 Req Phys: ISATU TODD Loc: 1S MED/12-10@10:57 Img Loc: CT SCAN (OOS) Service: [facility] MEDICINE (Case [id number] COMPLETE) CT ABD & PELVIS WITHOUT CONT RAST (CT Detailed) CPT:21602 Reason for Study: 71 yo male with [...] INDEX - NO HEIGHTS FOUND Pager number: [phone] STAT orders MUST be call ed to RADIOLOGY [phone] to speak to the appropriate regulatory and compliance technician. Report Status: Verified Date Reported: DEC 10, 2021 Date Verified: DEC 10, 2021 Classified Ad Taker E-Sig: Report: EXAM: CT abdomen and pelvis [...] ph nodes. READING PHYSICIAN: Ramone Munoz D.O. [phone] 12/10/2021 10:55 EDT [facility] [employer] [facility] [phone] (For Medical Practitioner Use Only ) [address] [place] [address], [place] [address], [address] [place] [address] Attention Patients / Veterans: If you have ques tions or concerns about these test results, please contact your o rdering provider or primary care team. Primary Diagnostic Code: SIGNIFICANT ABNORMALIT Y, ATTN NEEDED Primary Interpreting Staff: RADIOLOGY,OUTSIDE SERVICE, Staff Physician / Dec 09, 2021 07:34 AM BASW (MODIFIED): JESSIE CHENEY [facility] LUC[place] AUGUSTE N [id number] -1950 [facility] Exm Date: DEC 09, 2021@07:34 Req Phys: ISATU TODD Loc: 1S MED/12-09@11:26 Img Loc: XRAY (OOS) Service: [facility] MEDICINE (Case [id number] COMPLETE) BASW (MODIFIED) (EUNICE stephenson) CPT:01674 Contrast Media : Barium Reason for Study: dysphagia ?esophageal spasm Clinical History: Report Status: Verified Date Reported: DEC 09, 2021 Date Verified: DEC 09, 2021 Classified Ad Taker E-Sig:/ES/JESSIE CHENEY Report: BASW (MODIFIED) , 12/09/2021 TECHNIQUE: Real-time fluoroscopic images [...] REQUIRED Primary Interpreting Staff: JESSIE CHENEY, RADIOLOGIST (Classified Ad Taker) /TLC Dec 06, 2021 12:[address] CHEST (INCLUDES ADRENALS): JESSIE CHENEY T LUCAS AUGUSTE N [id number] -1950 M [facility] Exm Date: DEC 06, 2021@12:59 Req Phys: JELANI SÁNCHEZ Pat Loc: [facility] ED DAYS M 1RD (Req'g Loc) Img Loc: CT SCAN (OOS) Service: Unknown (Case [id number] COMPLETE) CT THORAX W/O CONT (CT Detai led) CPT:22359 Reason for Study: Opacification right chest Clinical History: No contrast allergy BUN: 13 (12/06/21 12:00) CREATI: 0.90 (12/06/21 12:00) eGFR 05/16/21 09:43 52 L Weight: 232.6 lb [105.51 kg] (12/06/2021 11:40) BODY MASS INDEX - NO HEIGHTS FOUND Pager number: [phone] STAT orders MUST be called t o RADIOLOGY [phone] to speak to the appropriate regulatory and compliance technician. Indications - Other: Opacification right chest, covid positive, lung cancer histo Report Status: Verified Date Reported: DEC 06, 2021 Date Verified: DEC 06, 2021 Classified Ad Taker E-Sig:/ES/JESSIE CHENEY Report: CT THORAX W/O CONT [...] REQUIRED Primary Interpreting Staff: JESSIE CHENEY, RADIOLOGIST (Classified Ad Taker) Primary Interpreting Resident: PRINCE CHAMPION, Resident /BR Dec 06, 2021 11:58 AM CHEST SINGLE VIEW: JESSIE CHENEY LUC[place] AUGUSTE N [id number] -1950 M [facility] Exm Date: DEC 06, 2021@11:58 Req Phys: JELANI SÁNCHEZ Loc: [facility] ED DAYS M 1RD (Req'g Loc) Img Loc: XRAY (OOS) Service: Unknown (Case [id number] COMPLETE) CHEST SINGLE VIEW (RAD Detai led) CPT:99421 Proc Modifiers : PORTABLE EXAM Reason for Study: SOB, home covid test positive Clinical History: Report Status: Verified Date Reported: DEC 06, 2021 Date Verified: DEC 06, 2021 Classified Ad Taker E-Sig:/ES/JESSIE CHENEY Report: Exam type: Chest x-ray [...] REQUIRED Primary Interpreting Staff: JESSIE CHENEY, RADIOLOGIST (Classified Ad Taker) /TLC Pathology Reports: +/- 30 days of [...] the Encounter. The data comes from all [facility] facilities. Date/Time Pathology Report Provider Source Dec 06, 2021 03:30 PM LR MICROBIOLOGY REPORT: [facility] Reporting Lab: [facility] [CLIA# [id number]] [address] [place] [address] Accession [UID]: [id number] [[id number]] Receiv ed: Dec 06, 2021@16:14 Collection sample: BLOOD CUL T BOTTLE(NIRMAL/AERO)Collection date: Dec 06, 2021 15:30 Site/Specimen: BLOOD Provider: JELANI SÁNCHEZ Comment on specimen: LAC Test(s) ordered: BLOOD CULTURE ANAEROBI C....... completed: Dec 12, 2021 06:18 * BACTERIOLOGY FINAL REPORT => Dec 12, 2021 06:1 8 TECH CODE: [id number] Bacteriology Remark(s): NO GROWTH IN 5 DAYS =--=--=--=--=--=--=--=--=--=--=--=--=--= --=--=--=--=--=--=--=--=--=--=--=--=-- Performing Laboratory: Bacteriology Report Performed By: [facility] [CLIA# [id number]] [address] [place] [address] Dec 06, 2021 03:30 PM LR MICROBIOLOGY REPORT: [facility] Reporting Lab: [facility] [CLIA# [id number]] [address] [place] [address] Accession [UID]: [id number] [[id number]] Receiv ed: Dec 06, 2021@16:14 Collection sample: BLOOD CUL T BOTTLE(NIRMAL/AERO)Collection date: Dec 06, 2021 15:30 Site/Specimen: BLOOD Provider: JELANI SÁNCHEZ Comment on specimen: LAC Test(s) ordered: BLOOD CULTURE AEROBIC. ........ completed: Dec 12, 2021 06:17 * BACTERIOLOGY FINAL REPORT => Dec 12, 2021 06:1 7 TECH CODE: [id number] Bacteriology Remark(s): NO GROWTH IN 5 DAYS =--=--=--=--=--=--=--=--=--=--=--=--=--= --=--=--=--=--=--=--=--=--=--=--=--=-- Performing Laboratory: Bacteriology Report Performed By: [facility] [CLIA# [id number]] [address] [place] [address] Encounter Notes: All associated encounter notes This section contains the clinical notes associated to the Encounter. Date/Time Encounter Note(s) Provider Source Nov 16, 2021 10:36 AM ADMINISTRATIVE NOTE: JANE PAREKH [facility] BECKY MONTOYA LOCAL TITLE: Has Admin Note [facility] TITLE: ADMINISTRATIVE NOTE DATE OF NOTE: NOV 16, 2021@10:36 ENTRY DATE: NOV 16, 2021@10:36:54 AUTHOR: JANE PAREKH EXP COSIGNER: URGENCY: STATUS: COMPLETED Reason for call Clinic Name: [facility] MD RTC 1st call-LM on VM /emely/ JANE PAREKH Signed: 11/16/2021 10:37
--- OUTSIDE RECORDS SUMMARY | 2022-01-19 08:04 | XMS_ITS ---
:1950 Author Organization [facility] rs Address [address] [place] [id number] Support Name Relationship Address Phone YUSRA MEEK Unavailable [address] [place] [address] YUSRA MEEK Unavailable [address] [place] [address] CLAY MOSLEY Unavailable Unavailable SJ SANTACRUZ Unavailable [...] MEDICARE MEDICARE PART Jun 18, PART A [id number] DO KALYANI PATIENT (WNR) (M) A 2016 13A 1 LAS MEDICARE MEDICARE PART Jun 18, PART A [id number] KALYANIDO PATIENT (WNR) (M) A 2017 VH81 2 LAS MEDICARE MEDICARE PART Jun 18, PART B [id number] KALYANIDO PATIENT (WNR) (M) B 2016 13A 1 LAS MEDICARE MEDICARE PART Jun 18, PART B [id number] KALYANIDO PATIENT (WNR) (M) B 2017 VH81 2 UGLAS UNITED MEDICARE MCR(W Jun 18 [id number] Luz MEEK PATIENT HEALTHCARE ADVANTAGE NR) 2021 37 0 [facility] (WNR) Selected Encounter This section includes the information on record at [place] for the Encounter. Date/Time Encounter Type Encounter Description Reason Provider Source Nov 28, 2021 04:53 Outpatient Encounter ADMIN PAT ACTIVTIES PM (DONALD) CORNELIUS Encounter Template Text not used by [place] Plan of Treatment: Future Appointments (+ 6 months) and Future Tests (+/- 45 days) The Plan of Treatment section includes future care activities for the patient from all [place] treatmentfacilities. This section includes future appointments and future orders which are active, pending orscheduled.Future Appointments This section includes appointments that were scheduled to occur 6 months from the date of the Encounter, up to a maximum of 20 appointments. The data comes from all [place] treatment facilities. Appointment Date/Time Appointment Type Appointment Facili ty Name Dec 01, 2021 10:30 AM AM[place]ORY [place] NONE [place] [facility] Dec 06, 2021 11:40 AM [place] [facility] Dec 21, 2021 08:00 AM AMBULATORY - NONE [place] [facility] Jan 06, 2022 02:00 PM [place] [facility] Jan 10, 2022 11:30 AM [facility] Jan 24, 2022 08:00 AM [place] [facility] Feb 21, 2022 10:00 AM [facility] [place] [facility] Mar 21, 2022 10:30 AM [facility] Active, Pending, and Scheduled [...] the Encounter. The data comes from all [place] treatment [facility]. Test Date/Time Test Type Test Details Facility Name October 31, 2021 07:37 AM Consult Order [facility]ITY [facility]ARE-EGD [facility] Cons [facility] November 15, 2021 10:37 AM Consult Order [facility] CARE-PODIATRY Cons [facility] Dec 06, 2021 12:52 PM [place] [facility] Dec 06, 2021 03:24 PM [place] [facility] Dec 06, 2021 03:40 PM [place] [facility] Dec 15, 2021 08:41 AM Consult Order SPEECH PATHOLOGY [place] OUTPATIENT Cons [facility] [employer] [facility] Lab Results: +/- 30 days of [...] GLU,BUN,CREAT,LYTES,CA Speci men Type: PLASMA 06:[address] [facility] Comment: Tests performed on OptTown (405) SN:[id number] Ordering Provid er: ISATU TODD Report Released Date/Time: Dec 11, 2021 07:42 AM Reporting [facility] [address] [facility] [address] Performing [facility]: [facility] [address] [facility] [address] UREA NITROGEN 9 7-25 SODIUM 137 135-145 POTASSIUM 3.8 3.5-5.0 CHLORIDE 105 100-110 CARBON DIOXIDE 26 20-30 ANION GAP 6 4-16 GLUCOSE 102 H 65-100 CREATININE 0.64 0.5-1.5 CALCIUM 8.1 L 8.5-10.5 eGFR(CKD-EPI 2020) >90.0 >60 Dec 15, 2021 06:[address] [facility] CBC PROFILE Sp ecimen Type: BLOOD No comment enter ed. Ordering Provid er: ISATU TODD Report Released Date/Time: Dec 10, 2021 07:22 AM Reporting [facility]: [facility] [address] [facility] [address] Per[facility] [address] [facility] [address] WBC 5.7 4.5-11.0 RBC 4.22 L 4.23-5.66 [...] ABSOLUTE NRBC 0.00 0-0 Dec 14, 2021 [facility] CYTOGENETIC Specimen Type: ESOPHAGUS 02:59 PM VAOC FISH([facility] [place] Comment: ~For T est: CYTOGENETIC FISH([facility] [place] ~FISH HER 2 NUE, FFPE See full report in V2contact Image display viewer/tab#LAB-Reference Ordering Provid er: NIURKA MILLER Report Released Date/Time: Dec 21, 2021 12:11 PM Reporting Lab: [facility] [address] [facility] [address] Performing Lab: [facility] CYTOGENETIC FISH([facility] [place] comment Dec 14, 2021 [facility] P4 GLU,BUN,CREAT,LYTES,CA Speci men Type: PLASMA 06:[address] [facility] Comment: Tests performed on OptTown (405) SN:[id number] Ordering Provid er: ISATU TODD Report Released Date/Time: Dec 11, 2021 07:42 AM Reporting Lab: [facility] [address] [facility] [address] Performing Lab: [facility] [address] [facility] [address] UREA NITROGEN 10 7-25 SODIUM 137 135-145 POTASSIUM 4.0 3.5-5.0 CHLORIDE 104 100-110 CARBON DIOXIDE 25 20-30 ANION GAP 8 4-16 GLUCOSE 99 65-100 CREATININE 0.67 0.5-1.5 CALCIUM 8.2 L 8.5-10.5 eGFR(CKD-EPI 2020) >90.0 >60 Dec 14, 2021 06:[address] [facility] CBC PROFILE Sp ecimen Type: BLOOD No comment enter ed. Ordering Provid er: ISATU TODD Report Released Date/Time: Dec 10, 2021 07:22 AM Reporting [facility] [address] [facility] [address] Performing Lab: [facility] [address] [facility] [facility] [address] WBC 6.0 4.5-11.0 RBC 4.29 4.23-5.66 HGB [...] ABSOLUTE NRBC 0.00 0-0 Dec 13, 2021 [facility] P4 GLU,BUN,CREAT,LYTES,CA Speci men Type: PLASMA 06:[address] [facility] Comment: Tests performed on OptTown 405 SN:[id number] Ordering Provid er: ISATU TODD Report Released Date/Time: Dec 11, 2021 07:42 AM Reporting Lab: [facility] [address] [facility] [address] Performing Lab: [facility] [address] [facility] [facility] [address] UREA NITROGEN 12 7-25 SODIUM 136 135-145 POTASSIUM 3.9 3.5-5.0 CHLORIDE 105 100-110 CARBON DIOXIDE 24 20-30 ANION GAP 7 4-16 GLUCOSE 102 H 65-100 CREATININE 0.66 0.5-1.5 CALCIUM 8.3 L 8.5-10.5 eGFR(CKD-EPI 2020) >90.0 >60 Dec 13, 2021 06:[address] [facility] CBC PROFILE Sp ecimen Type: BLOOD No comment enter ed. Ordering Provid er: ISATU TODD Report Released Date/Time: Dec 10, 2021 07:22 AM Reporting Lab: [facility] [address] [facility] [address] Performing Lab: [facility] [address] [facility] [address] WBC 5.6 4.5-11.0 RBC 4.28 4.23-5.66 HGB [...] ABSOLUTE NRBC 0.00 0-0 Dec 12, 2021 [facility] P4 GLU,BUN,CREAT,LYTES,CA Speci men Type: PLASMA 06:[address] [facility] Comment: Tests performed on OptTown (405) SN:[id number] Ordering Provid er: ISATU TODD Report Released Date/Time: Dec 11, 2021 07:42 AM Reporting Lab: [facility] [address] [facility] [address] Performing Lab: [facility] [address] [facility] [address] UREA NITROGEN 11 7-25 SODIUM 139 135-145 POTASSIUM 4.1 3.5-5.0 CHLORIDE 107 100-110 CARBON DIOXIDE 24 20-30 ANION GAP 8 4-16 GLUCOSE 110 H 65-100 CREATININE 0.70 0.5-1.5 CALCIUM 8.3 L 8.5-10.5 eGFR(CKD-EPI 2020) >90.0 >60 Dec 12, 2021 06:[address] [facility] CBC PROFILE Sp ecimen Type: BLOOD No comment enter ed. Ordering Provid er: ISATU TODD Report Released Date/Time: Dec 10, 2021 07:22 AM Reporting Lab: [facility] [address] [facility] [address] Performing Lab: [facility] [address] [facility] [facility] [address] WBC 5.5 4.5-11.0 RBC 4.37 4.23-5.66 HGB [...] PLASMA Comment: Testin g Performed on Pham SmartPill (405) SN:[id number] Ordering Provid er: ISATU TODD Report Released Date/Time: Dec 12, 2021 08:24 AM Reporting [facility]: [facility] [address] [facility] [address] Performing Lab: [facility] [address] [facility] [address] MAGNESIUM 1.8 1.6-2.6 Dec 12, 2021 06:00 AM [facility] PHOSPHORUS Sp ecimen Type: PLASMA Comment: Testin g Performed on OptTown (405) SN:[id number] Ordering Provid er: ISATU TODD Report Released Date/Time: Dec 12, 2021 08:24 AM Reporting Lab: [facility] [address] [facility] [address] Performing Lab: [facility] [address] [facility] [address] PHOSPHORUS 3.1 2.5-5.0 Dec 11, 2021 06:15 AM [facility] ELECTROLYTES Sp ecimen Type: PLASMA Comment: Tests performed on OptTown (405) SN:[id number] Ordering Provid er: ISATU TODD Report Released Date/Time: Dec 10, 2021 07:22 AM Reporting Lab: [facility] [address] [facility] [address] Performing Lab[facility] [address] [facility] [address] SODIUM 137 135-145 POTASSIUM 4.3 3.5-5.0 CHLORIDE 108 100-110 CARBON DIOXIDE 20 20-30 ANION GAP 9 4-16 Dec 11, 2021 06:15 AM [facility] CBC PROFILE Sp ecimen Type: BLOOD Comment: Result s checked Ordering Provid er: ISATU TODD Report Released Date/Time: Dec 10, 2021 07:22 AM Reporting Lab: [facility] [address] [facility] [address] Performing Lab: [facility] [address] [facility] [address] WBC 5.8 4.5-11.0 RBC 4.37 4.23-5.66 HGB [...] 0.00 0-0 Dec 11, 2021 06:00 AM [facility] PHOSPHORUS Sp ecimen Type: PLASMA Comment: Tests performed on OptTown (005) SN:[id number] Results checked Ordering Provid er: ISATU TODD Report Released Date/Time: Dec 11, 2021 07:44 AM Reporting Lab: [facility] [address] [facility] [address] Performing [facility]: [facility] [address] [place] [facility] [place] [place] [address] PHOSPHORUS 3.0 2.5-5.0 Dec 10, 2021 08:05 AM [place] [facility] MAGNESIUM Sp ecimen Type: PLASMA Comment: [place] [id number] on Dec 10, 2021@08:31 Tests performed on OptTown (405) SN:[id number] Ordering Provid er: ISATU TODD Report Released Date/Time: Dec 10, 2021 07:22 AM Reporting Lab: [place] [facility] [address] [place] [facility] [place] [place] [address] Performing Lab: [place] [facility] [address] [place] [facility] [place] [place] [address] MAGNESIUM 1.7 1.6-2.6 Dec 10, 2021 08:05 AM [place] [facility] PHOSPHORUS Sp ecimen Type: PLASMA Comment: [place] [id number] on Dec 10, 2021@08:31 Tests performed on OptTown (405) SN:[id number] Ordering Provid er: ISATU TODD Report Released Date/Time: Dec 10, 2021 07:22 AM Reporting Lab: [place] [facility] [address] [place] [facility] [place] [place] [address] Performing Lab: [place] [facility] [address] [place] [facility] [place] [place] [address] PHOSPHORUS 1.8 L 2.5-5.0 Dec 10, 2021 08:05 AM [place] UREA NITROGEN Specimen Type: PLASMA [facility] Comment: [place] [id number] on Dec 10, 2021@08:31 Tests performed on OptTown (405) SN:[id number] Ordering Provid er: ISATU TODD Report Released Date/Time: Dec 10, 2021 07:22 AM Reporting Lab: [place] [facility] [address] [place] [facility] [place] [place] [address] Performing Lab: [place] [facility] [address] [place] [facility] [place] [place] [address] UREA NITROGEN 8 7-Dec 10, 2021 08:05 AM [place] [facility] GLUCOSE Sp ecimen Type: PLASMA Comment: [place] [id number] on Dec 10, 2021@08:31 Tests performed on OptTown (405) SN:[id number] Ordering Provid er: TODD,ISATU E Report Released Date/Time: Dec 10, 2021 07:22 AM Reporting Lab: [place] [facility] [address] [place] [facility] [place] [place] [address] Performing Lab: [place] [facility] [address] [place] [facility] [place] [place] [address] GLUCOSE 144 H 65-100 Dec 10, 2021 08:05 [place] CREATININE WITH eGFR Specime n Type: PLASMA AM [facility] PANEL Comment: [place] [id number] on Dec 10, 2021@08:31 Tests performed on [employer] Librarian (405) SN:[id number] Ordering Provid er: ISATU TODD Report Released Date/Time: Dec 10, 2021 07:22 AM Reporting Lab: [place] [facility] [address] [facility] [address] Performing Lab: [place] [facility] [address] [facility] [address] CREATININE 0.78 0.5-1.5 eGFR(CKD-EPI 2020) >90.0 >60 Dec 10, 2021 08:05 AM [place] [facility] ELECTROLYTES Sp ecimen Type: PLASMA Comment: [place] [id number] on Dec 10, 2021@08:31 Tests performed on Pham SmartPill (405) SN:[id number] Ordering Provid er: ISATU TODD Report Released Date/Time: Dec 10, 2021 07:22 AM Reporting Lab: [place] [facility] [address] [place] [facility] [place] [place] [address] Performing Lab: [place] [facility] [address] [place] [facility] [place] [place] [address] SODIUM 139 135-145 POTASSIUM 3.7 3.5-5.0 CHLORIDE 107 100-110 CARBON DIOXIDE 24 20-30 ANION GAP 8 4-16 Dec 10, 2021 08:05 AM [place] [facility] CALCIUM Sp ecimen Type: PLASMA Comment: [place] [id number] on Dec 10, 2021@08:31 Tests performed on [employer]ibrarian (405) SN:[id number] Ordering Provid er: ISATU TODD Report Released Date/Time: Dec 10, 2021 07:22 AM Reporting Lab: [place] [facility] [address] [facility] [address] Performing Lab: [place] [facility] [address] [facility] [address] CALCIUM 8.3 L 8.5-10.5 Dec 10, 2021 08:05 AM [facility] CBC PROFILE Sp ecimen Type: BLOOD No comment enter ed. Ordering Provid er: ISATU TODD Report Released Date/Time: Dec 10, 2021 07:22 AM Reporting Lab: [facility] [address] [facility] [address] Performing Lab: [facility] [address] [facility] [address] WBC 7.0 4.5-11.0 RBC 4.54 4.23-5.66 HGB [...] 0.00 0-0 Dec 09, 2021 06:46 AM [facility] MAGNESIUM Sp ecimen Type: PLASMA Comment: Tests performed on OptTown (750) SN:[id number] Ordering Provid er: ISATU TODD Report Released Date/Time: Dec 08, 2021 10:23 AM Reporting Lab: [facility] [address] [facility] [address] Performing Lab: [facility] [address] [facility] [address] MAGNESIUM 1.6 1.6-2.6 Dec 09, 2021 [facility] P4 GLU,BUN,CREAT,LYTES,CA Speci men Type: PLASMA 06:[address] [facility] Comment: Tests performed on OptTown (405) SN:[id number] Ordering Provid er: ISATU TODD Report Released Date/Time: Dec 08, 2021 05:00 PM Reporting Lab: [facility] [address] [facility] [address] Performing Lab: [facility] [address] [facility] [address] UREA NITROGEN 6 L 7-25 SODIUM 134 L 135-145 POTASSIUM 3.7 3.5-5.0 CHLORIDE 103 100-110 CARBON DIOXIDE 23 20-30 ANION GAP 8 4-16 GLUCOSE 112 H 65-100 CREATININE 0.70 0.5-1.5 CALCIUM 8.1 L 8.5-10.5 eGFR(CKD-EPI 2020) >90.0 >60 Dec 09, 2021 06:46 AM [facility] CBC PROFILE Sp ecimen Type: BLOOD No comment enter ed. Ordering Provid er: ISATU TODD Report Released Date/Time: Dec 08, 2021 05:00 PM Reporting Lab: [facility] [address] [facility] [address] Performing Lab: [facility] [address] [facility] [address] WBC 7.1 4.5-11.0 RBC 4.40 4.23-5.66 HGB [...] PLASMA Comment: Testin g Performed on [employer] Librarian (405) SN:[id number] Ordering Provid er: ISATU TODD Report Released Date/Time: Dec 07, 2021 10:32 AM Reporting Lab: [place] [facility] [address] [facility] [address] Performing Lab: [facility] [address] [facility] [address] MAGNESIUM 1.5 L 1.6-2.6 Dec 08, 2021 [place] P4 GLU,BUN,CREAT,LYTES,CA Speci men Type: PLASMA 06:39 AM [facility] Comment: Testin g Performed on OptTown (405) SN:[id number] Ordering Provid er: ISATU TODD Report Released Date/Time: Dec 07, 2021 10:32 AM Reporting Lab: [place] [facility] [address] [facility] [address] Performing Lab: [place] [facility] [address] [facility] [address] UREA NITROGEN 6 L 7-25 SODIUM 136 135-145 POTASSIUM 3.3 L 3.5-5.0 CHLORIDE 104 100-110 CARBON DIOXIDE 22 20-30 ANION GAP 10 4-16 GLUCOSE 133 H 65-100 CREATININE 0.76 0.5-1.5 CALCIUM 8.4 L 8.5-10.5 eGFR(CKD-EPI 2020) >90.0 >60 Dec 08, 2021 06:39 AM [place] [facility] CBC PROFILE Sp ecimen Type: BLOOD No comment enter ed. Ordering Provid er: ISATU TODD Report Released Date/Time: Dec 07, 2021 10:32 AM Reporting Lab: [facility] [address] [facility] [address] Performing Lab: [facility] [address] [facility] [address] WBC 8.4 4.5-11.0 RBC 4.75 4.23-5.66 HGB [...] ABSOLUTE NRBC 0.00 0-0 Dec 07, 2021 [facility] P4 GLU,BUN,CREAT,LYTES,CA Speci men Type: PLASMA 06:[address] [facility] Comment: Tests performed on OptTown 405 SN:[id number] Ordering Provid er: PORFIRIO WALTERS Report Released Date/Time: Dec 06, 2021 06:57 PM Reporting Lab: [facility] [address] [facility] [address] Performing Lab: [facility] [address] [facility] [address] UREA NITROGEN 9 7-25 SODIUM 135 135-145 POTASSIUM 3.5 3.5-5.0 CHLORIDE 103 100-110 CARBON DIOXIDE 22 20-30 ANION GAP 10 4-16 GLUCOSE 92 65-100 CREATININE 0.73 0.5-1.5 CALCIUM 8.0 L 8.5-10.5 eGFR(CKD-EPI 2020) >90.0 >60 Dec 07, 2021 06:42 [place] PROFILE Specimen Typ e: PLASMA AM [facility] Comment: Tests performed on OptTown (405) SN:[id number] Ordering Provid er: PORFIRIO WALTERS Report Released Date/Time: Dec 06, 2021 06:57 PM Reporting Lab: [facility] [address] [facility] [address] Per[facility]: [facility] [address] [facility] [address] PROTEIN, TOTAL 5.7 L 6.0-8.5 ALBUMIN 2.4 L 3.2-5.0 BILIRUBIN, TOTAL 0.4 0.2-1.2 ALKALINE PHOSPHATASE 109 40-150 ALT(SGPT) 10 7-52 AST(SGOT) 15 5-34 FIB-4 SCORE 1.92 <2.67 Dec 07, 2021 06:42 AM [place] CBC PROFILE Specimen Type: BLOOD [facility] No comment enter ed. Ordering Provid er: PORFIRIO WALTERS Report Released Date/Time: Dec 06, 2021 06:57 PM Reporting Lab: [facility] [address] [facility] [address] Per[facility]: [facility] [address] [facility] [address] WBC 5.7 4.5-11.0 RBC 4.15 L 4.23-5.66 [...] [facility] %) AUTOMATED Comment: Tests performed on OptTown (405) SN:[id number] Ordering Provid er: ISATU TODD Report Released Date/Time: Dec 07, 2021 10:28 AM Reporting Lab: [place] [facility] [address] [facility] [address] Performing Lab: [place] [facility] [address] [facility] [address] RETICULOCYTES (%) AUTOMATED 1.23 0. 6-2.0 RETICULOCYTES (ABS) AUTOMATED 0.052 0.030-0.090 Dec 06, 2021 09:45 [place] MRSA SURVL NARES Specimen Ty pe: NARES PM [facility] DNA No comment enter ed. Ordering Provid er: ALVARO VARGHESE Report Released Date/Time: Dec 07, 2021 02:20 AM Reporting Lab: [place] [facility] [address] [facility] [address] Performing Lab: [place] [facility] [address] [place] [facility] [place] [place] [address] MRSA SURVL NARES DNA NEGATIVE NEGATIVE Dec 06, 2021 06:00 [place] URINALYSIS W/REFLEX TO Speci men Type: URINE PM [facility] CULTURE No comment enter ed. Ordering Provid er: JELANI SÁNCHEZ Report Released Date/Time: Dec 06, 2021 11:57 AM Reporting Lab: [place] [facility] [address] [facility] [address] Performing Lab: [place] [facility] [address] [facility] [address] URINE COLOR Arlin YELLOW SPECIFIC GRAVITY 1.029 [...] 21, R[place] VARIANT Comment: https://www.cdc.gov/coronavirus/2019-ncov/cases-updates/variant- surveillance/variant-info.html The [employer] SARS CoV 2 [employer] Assay-GX is a next-generation sequencing (NGS) assa 2021 [facility] SEQUENCING y that determine s the complete genome sequence of the SARS-CoV-2 virus. The assay contains variant-tolerant primers to broaden and improve the coverage for variant detection and increase the sensitivity 12:00 [facility] PNL(WH) of the panel to enable detection from lower viral titer samples. The assay is run on the Babybe Sequencer, which performs automated library preparation, sequencing, analysis, and reporting. PM The sequence an alysis includes determination of viral phylogenetic lineage by comparison to the reference strain Wuhan-Hu-1, GenBank: [id number]. Sequence determination may not be possible owing [...] and its performance characteristics determined by the [facility] Molecular Diagnostics Laboratory, which is certified under the Clinical Laboratory Improveme nt Amendments (C MARCO) as qualified to perform high complexity clinical laboratory testing. This test is validated for clinical use at [facility] and should not be regarded as investigational or for research. The FDA does not require this test to go through premarket FDA review, and therefore it has not been cleared or approved by the FDA. This report was reviewed and approved by the on-service pathologist. Ordering Provid er: JELANI SÁNCHEZ Report Released Date/Time: Dec 06, 2021 01:13 PM Reporting Lab: [facility] [address] [facility] [address] Performing Lab: [facility] [address] [facility] [address] SARS-CoV-2 CLADE() 22C (OMICRON) SARS-CoV-2 LINEAGE() BA.2.12.1 Dec 06, 2021 12:00 [facility] COVID-19 AG SCREEN Specimen Type: NASAL CAVITY PM [facility] PANEL BINAX(405) Comment: Testi ng Performed By: Mike Briscoe Ordering Provid er: JELANI SÁNCHEZ Report Released Date/Time: Dec 08, 2021 08:23 AM Reporting Lab: [facility] [address] [facility] [address] Performing Lab: [facility] [address] [facility] [address] COVID-19 AG SCRN(wrj BINAX) POSITIVE HH NE G Dec 06, 2021 12:00 PM [facility] LIVER PROFILE Sp ecimen Type: PLASMA Comment: Testin g Performed on [employer] (405) [id number] Ordering Provid er: JELANI SÁNCHEZ Report Released Date/Time: Dec 06, 2021 11:57 AM Reporting Lab: [facility] [address] [facility] [address] Performing Lab: [facility] [address] [facility] [address] PROTEIN, TOTAL 6.6 6.0-8.5 ALBUMIN 2.8 L 3.2-5.0 BILIRUBIN, TOTAL 0.6 0.2-1.2 ALKALINE PHOSPHATASE 134 40-150 ALT(SGPT) 13 7-52 AST(SGOT) 18 5-34 FIB-4 SCORE 1.94 <2.67 Dec 06, 2021 12:00 PM [facility] VAOC TROPONIN II Sp ecimen Type: PLASMA Comment: Tests performed on [employer] (405) [id number] Ordering Provid er: JELANI SÁNCHEZ Report Released Date/Time: Dec 06, 2021 11:57 AM Reporting Lab: [facility] [address] [facility] [address] Performing Lab: [facility] [address] [facility] [address] TROPONIN II 0.03 0.00-0.29 Dec 06, 2021 [facility] P[facility] GLU,BUN,CREAT,LYTES,CA Speci men Type: PLASMA 12:00 PM [facility] Comment: Testin g Performed on [employer] (405) [id number] Ordering Provid er: JELANI SÁNCHEZ Report Released Date/Time: Dec 06, 2021 11:57 AM Reporting Lab: [facility] [address] [facility] [address] Performing Lab: [facility] [facility] [address] [facility] [address] UREA NITROGEN 13 7-25 SODIUM 138 135-145 POTASSIUM 3.8 3.5-5.0 CHLORIDE 103 100-110 CARBON DIOXIDE 23 20-30 ANION GAP 12 4-16 GLUCOSE 105 H 65-100 CREATININE 0.90 0.5-1.5 CALCIUM 8.7 8.5-10.5 eGFR(CKD-EPI 2020) >90.0 >60 Dec 06, 2021 12:00 PM [facility] BNP(P[facility] Sp ecimen Type: PLASMA Comment: Tests performed on [employer] Librarian (405) SN:[id number] Ordering Provid er: JELANI SÁNCHEZ Report Released Date/Time: Dec 06, 2021 11:57 AM Reporting Lab: [facility] [address] [facility] [address] Performing Lab: [facility] [address] [facility] [address] BNP(P) 224.8 H 10-100 Dec 06, 2021 [facility] COVID-19+FLU/RSV DIAGNOSTIC Spe cimen Type: NASOPHARYNX 12:00 PM [facility] PANEL(405) Comment: Tests performed on [employer] Genexpert (405) Critical results called to and read back by: ALESHIA WILKINSON RN 12/06/21 @ 1312 Ordering Provid er: JELANI SÁNCHEZ Report Released Date/Time: Dec 06, 2021 11:57 AM Reporting Lab: [place] [facility] [address] [facility] [address] [facility]: [facility] [address] [facility] [facility] [address] FLU A(PCR) NEGATIVE NEGATIVE FLU B(PCR) NEGATIVE NEGATIVE RSV(PCR) NEGATIVE NEGATIVE COVID-19(RCF-[id number]-[id number]) DETECTED HH NO T DETECTED Dec 06, 2021 12:[address] [facility] CBC PROFILE Sp ecimen Type: BLOOD No comment enter ed. Ordering Provid er: JELANI SÁNCHEZ Report Released Date/Time: Dec 06, 2021 11:57 AM Reporting Lab: [facility] [address] [facility] [facility] [address] Performing Lab: [facility] [address] [facility] [facility] [address] WBC 7.2 4.5-11.0 RBC 4.86 4.23-5.66 HGB [...] smoking and tobacco-related health factors from the [place] facility where the Encounter took place.Current Smoking Status This section includes the most current smoking, or tobacco-related health factor, from the [place] facility where the Encounter took place. Date/Time Current Smoking Status Comment Facility Apr 01, 2020 01:16 PM QUIT TOBACCO USE 1-[address] [facility] Tobacco Use History This section includes a history of the smoking, or tobacco- related health factors, that were collected on or before the date of the Encounter. The data comes from the [facility] where the Encounter took place. Date/Time Smoking Status/Tobacco Use Comment [facility] Mar 24, 2020 03:00 PM QUIT TOBACCO USE 1-[address] [facility] Feb 21, 2019 04:11 PM QUIT TOBACCO USE 1-[address] [facility] Feb 20, 2019 03:38 PM QUIT TOBACCO USE 1-[address] [facility] Feb 03, 2019 09:50 AM QUIT TOBACCO USE 1-[address] [facility] May 25, 2016 11:53 PM QUIT TOBACCO USE IN PAST YEAR [facility] May 23, 2016 06:57 PM QUIT TOBACCO USE > [address] [facility] May 19, 2016 03:55 PM QUIT TOBACCO USE IN PAST YEAR [facility] May 19, 2016 10:29 AM QUIT TOBACCO USE 1-[address] [facility] May 01, 2016 07:26 PM QUIT TOBACCO USE IN PAST YEAR [facility] May 01, 2016 03:11 PM QUIT TOBACCO USE IN PAST YEAR [facility] May 01, 2016 11:19 AM QUIT TOBACCO USE IN PAST YEAR [facility] Mar 16, 2016 12:50 PM V1-PT DECLINES REF TO TOBACCO [facility] CESS PRGM Mar 16, 2016 12:50 PM V1-PT THINKING ABOUT QUIT [facility] TOBACCO USE Aug 12, 2015 08:48 AM CURRENT SMOKER [facility] Y[facility] Radiology Reports: +/- 30 days of [...] the Encounter. The data comes from all [place] treatment facilities. Date/Time Radiology Report Provider Source Dec 13, 2021 12:57 PM MRI ABDOMEN W/WO CONTRAST: MARYELLEN LONG [place] LUCAS MEEK N [id number] -1950 M [facility] Exm Date: DEC 13, 2021@12:57 Req Phys: ISATU TODD Loc: OP Unknown/0 12-15-2021@13:20 Img Loc: MRI IMAGING (OOS) Service: [facility]ZGENERAL MEDICINE (Case [id number] COMPLETE) MRI ABDOMEN W/WO CONTRAST (M RI Detailed) CPT:44245 Reason for Study: further characterization of a [...] new lyphadenopathy REQUESTING MD: Isatu Todd PAGER: [phone] PHONE: [phone] Weight: 232.2 lb [105.32 kg] (12/12/2021 05:00) [...] patient will need to arrange for a sales route driver to take him/her home after the [...] 15, 2021 Date Verified: DEC 15, 2021 Contract Negotiation Manager E-Sig:/ES/MARYELLEN LONG Report: MRI ABDOMEN W/WO CONTRAST [...] MALIGNANCY Primary Interpreting Staff: MARYELLEN LONG Staff (Contract Negotiation Manager) / Dec 10, 2021 09:[address] ABDOMEN & PELVIS: RADIOLOGY,OUTSIDE [facility] [place] LUCAS MEEK N [id number] -1950 M [facility] Exm Date: DEC 10, 2021@09:30 Req Phys: ISATU TODD Loc: 1S MED/12-10@10:57 Img Loc: CT SCAN (OOS) Service: [facility] MEDICINE (Case [id number] COMPLETE) CT ABD & PELVIS WITHOUT CONT RAST (CT Detailed) CPT:32999 Reason for Study: 71 yo male with [...] RADIOLOGY [phone] to speak to the appropriate biology specimen technician. Report Status: Verified Date Reported: DEC 10, 2021 Date Verified: DEC 10, 2021 Contract Negotiation Manager E-Sig: Report: EXAM: CT abdomen and pelvis [...] ph nodes. READING PHYSICIAN: Ramone Munoz D.O. [phone] 12/10/2021 10:55 EDT [facility] [employer] [facility]eler[employer] Program [phone] (For Medical Practitioner Use Only ) [address] [place] [address], [place] [address], [address] [place] [address] Attention Patients / Veterans: If you have ques tions or concerns about these test results, please contact your o rdering provider or primary care team. Primary Diagnostic Code: SIGNIFICANT ABNORMALIT Y, ATTN NEEDED Primary Interpreting Staff: RADIOLOGY,OUTSIDE SERVICE, Staff Physician / Dec 09, 2021 07:34 AM BASW (MODIFIED): JESSIE CHENEY [facility] N [id number] -1950 [facility] Exm Date: DEC 09, 2021@07:34 Req Phys: ISATU TODD Loc: 1S MED/12-09@11:26 Img Loc: XRAY (OOS) Service: [facility] MEDICINE (Case [id number] COMPLETE) BASW (MODIFIED) (EUNICE stephenson) CPT:72973 Contrast Media : Barium Reason for Study: dysphagia ?esophageal spasm Clinical History: Report Status: Verified Date Reported: DEC 09, 2021 Date Verified: DEC 09, 2021 Contract Negotiation Manager E-Sig:/ES/JESSIE CHENEY Report: BASW (MODIFIED) , 12/09/2021 [...] REQUIRED Primary Interpreting Staff: JESSIE CHENEY, RADIOLOGIST (Contract Negotiation Manager) /TLC Dec 06, 2021 12:[address] CHEST (INCLUDES ADRENALS): JESSIE CHENEY T LUCAS MEEK N [id number] -1950 M [facility] Exm Date: DEC 06, 2021@12:59 Req Phys: JELANI SÁNCHEZ Pat Loc: [facility] ED DAYS M 1RD (Req'g Loc) Img Loc: CT SCAN (OOS) Service: Unknown (Case [id number] COMPLETE) CT THORAX W/O CONT (CT Detai led) CPT:86561 Reason for Study: Opacification right chest Clinical History: No contrast allergy BUN: 13 (12/06/21 12:00) CREATI: 0.90 (12/06/21 12:00) eGFR 05/16/21 09:43 52 L Weight: 232.6 lb [105.51 kg] (12/06/2021 11:40) BODY MASS INDEX - NO HEIGHTS FOUND Pager number: [phone] STAT orders MUST be called t o RADIOLOGY [phone] to speak to the appropriate biology specimen technician. Indications - Other: Opacification right chest, covid positive, lung cancer histo Report Status: Verified Date Reported: DEC 06, 2021 Date Verified: DEC 06, 2021 Contract Negotiation Manager E-Sig:/ES/JESSIE CHENEY Report: CT THORAX W/O CONT [...] REQUIRED Primary Interpreting Staff: JESSIE CHENEY, RADIOLOGIST (Contract Negotiation Manager) Primary Interpreting Resident: PRINCE CHAMPION, Resident /BR Dec 06, 2021 11:58 AM CHEST SINGLE VIEW: JESSIE CHENEY LUCAS MEEK N [id number] -1950 M [facility] Exm Date: DEC 06, 2021@11:58 Req Phys: JELANI SÁNCHEZ Loc: [facility] ED DAYS M 1RD (Req'g Loc) Img Loc: XRAY (OOS) Service: Unknown (Case [id number] COMPLETE) CHEST SINGLE VIEW (RAD Detai led) CPT:67094 Proc Modifiers : PORTABLE EXAM Reason for Study: SOB, home covid test positive Clinical History: Report Status: Verified Date Reported: DEC 06, 2021 Date Verified: DEC 06, 2021 Contract Negotiation Manager E-Sig:/ES/JESSIE CHENEY Report: Exam type: Chest x-ray [...] REQUIRED Primary Interpreting Staff: JESSIE CHENEY, RADIOLOGIST (Contract Negotiation Manager) /TLC Pathology Reports: +/- 30 days of [...] the Encounter. The data comes from all [facility] facilities. Date/Time Pathology Report Provider Source Dec 21, 2021 11:46 AM LR SURGICAL PATHOLOGY REPORT: STEFANY MILLER [facility] LOCAL TITLE: LR SURGICAL PATHOLOGY REPORT [facility] STANDARD TITLE: PATHOLOGY REPORT DATE OF NOTE: DEC 21, 2021@11:46:59 ENTRY DATE: DEC 21, 2021@11:46:59 AUTHOR: NIURKA MILLER EXP COSIGNER: URGENCY: STATUS: COMPLETED $APHDR Reporting Lab: [facility] [CLIA# [id number]] [address] [place] [address] - - - - - - [...] - PATHOLOGY REPORT Accession No. SP [id number] - - - - - - - - - - - - - - - - - - - - - - - - - - - - - - - - - - - - - - - - $TEXT Submitted by: ISATU TODD Date obtained: Marizol rojas 2021 14:59 - - - - - - - - - - - - - - - - - - - - - - - - - - - - - - - - - - - - - - - - Specimen (Received Dec 14, 2021 15:00): ESOPHAGUS BIOPSIES - - - - - - - - - - - - - - - - - - - - - - - - - - - - - - - - - - - - - - - - BRIEF CLINICAL HISTORY: Grossly irregular esophagus c/f malignancy - - - - - - - - - - - - - - - - - - - - - - - - - - - - - - - - - - - - - - - - PREOPERATIVE DIAGNOSIS: EARLY SATIETY Information automatically d ocumented from SURGERY package case #[id number] Field (#32) PRINCIPAL PRE-OP DIAGNOSIS, (#.72) OTHER PREOP DIAGNOSIS - - - - - - - - - - - - - - - - - - - - - - - - - - - - - - - - - - - - - - - - OPERATIVE FINDINGS: Grossly irregular esophagus c/f malignancy - - - - - - - - - - - - - - - - - - - - - - - - - - - - - - - - - - - - - - - - POSTOPERATIVE DIAGNOSIS: EARLY SATIETY Information automatically d ocumented from SURGERY package case #[id number] Field (#34) PRINCIPAL POST-OP DIAG, (#.74) OTHER POSTOP DIAGS Esophageal cancer Surgeon/physician: MICHELLE CALERO Attending Surgeon: Kyle Saenz MD =-=-=-=-=-=-=-=-=-=-=-=-=-=- =-=-=-=-=-=-=-=-=-=-=-=-=-=-=-=-=-=-=-=-=-=-=-=-=-= - - - - - - - - - - - - - - - - - - - - - - - - - - - - - - - - - - - - - - - - PATHOLOGY REPORT Accession No. SP [id number] - - - - - - - - - - - - - - - - - - - - - - - - - - - - - - - - - - - - - - - - GROSS DESCRIPTION: Name Label: Lucas Meek Paperwork: Lucas Meek Cassette: [id number];..;KALYANI;.;914;[phone] Specimen is labeled: ES bx Received in formalin are several pieces of pale boyd and brown tissue, 1.2 x 0.7 cm in aggregate. Submitted entirely in 1 cassette [id number];..;KALYANI;.;965;[phone] SAW 12/15/2021 Microscopic exam: DIAGNOSIS: A. 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 Kendell long. TIARA Coombs was notified on 12/21/21. The attending pathologist who signature mansoor ears on this report has reviewed all diagnostic slides and has edited t he gross and/or microscopic portion of this report in rendering the final pathologic diagnosis. [address] [address] CPT: 87648 /emely/ NIURKA Yeung MD Signed Dec 21, 2021@11:46 Performing Laboratory: Surgical Pathology Report Performed By: [facility] [CLIA# [id number]] [address] [place] [address] $FTR - - - - - - - - - - - - - - - - - - - - - - - - - - - - - - - - - - - - - - - - (End of report) NIURKA MILLER MD sh Date Dec 20, 2021 - - - - - - - - - - - - - - - - - - - - - - - - - - - - - - - - - - - - - - - - LUCAS MEEK STANDARD FORM 515 ID:[id number] SEX:M :1950 AGE: 71 LOC: [facility] PCP: Isatu Todd /emely/ NIURKA Yeung MD Signed: 12/21/2021 11:46 Dec 06, 2021 03:30 PM LR MICROBIOLOGY REPORT: [facility] Reporting Lab: [facility] [CLIA# [id number]] [address] [place] [address] Accession [UID]: [id number] [[id number]] Receiv ed: Dec 06, 2021@16:14 Collection sample: BLOOD CUL T BOTTLE(NIRMAL/AERO)Collection date: Dec 06, 2021 15:30 Site/Specimen: BLOOD Provider: JELANI SÁNCHEZ Comment on specimen: LAC Test(s) ordered: BLOOD CULTURE ANAEROBI C....... completed: Dec 12, 2021 06:18 * BACTERIOLOGY FINAL REPORT => Dec 12, 2021 06:1 8 TECH CODE: [id number] Bacteriology Remark(s): NO GROWTH IN 5 DAYS =--=--=--=--=--=--=--=--=--=--=--=--=--= --=--=--=--=--=--=--=--=--=--=--=--=-- Performing Laboratory: Bacteriology Report Performed By: [facility] [CLIA# [id number]] [address] [place] [address] Dec 06, 2021 03:30 PM LR MICROBIOLOGY REPORT: [facility] Reporting Lab: [facility] [CLIA# [id number]] [address] [place] [address] Accession [UID]: [id number] [[id number]] Receiv ed: Dec 06, 2021@16:14 Collection sample: BLOOD CUL T BOTTLE(NIRMAL/AERO)Collection date: Dec 06, 2021 15:30 Site/Specimen: BLOOD Provider: JELANI SÁNCHEZ Comment on specimen: LAC Test(s) ordered: BLOOD CULTURE AEROBIC. ........ completed: Dec 12, 2021 06:17 * BACTERIOLOGY FINAL REPORT => Dec 12, 2021 06:1 7 TECH CODE: [id number] Bacteriology Remark(s): NO GROWTH IN 5 DAYS =--=--=--=--=--=--=--=--=--=--=--=--=--= --=--=--=--=--=--=--=--=--=--=--=--=-- Performing Laboratory: Bacteriology Report Performed By: [facility] [CLIA# [id number]] [address] [place] [address] Encounter Notes: All associated encounter notes This section contains the clinical notes associated to the Encounter. Date/Time Encounter Note(s) Provider Source Nov 28, 2021 04:54 PM LETTERS: EVARISTO GARCIA LOCAL TITLE: Letter To Patient [facility] STANDARD TITLE: LETTERS DATE OF NOTE: NOV 28, 2021@16:54 ENTRY DATE: NOV 28, 2021@16:54:42 AUTHOR: EVARISTO GARICA EXP COSIGNER: URGENCY: STATUS: COMPLETED [facility] [address] [place] [address] NOV 28, 2021 ARTHRITIS/RHEUMATOLOGY MR. LUCAS MEEK [address] [place], [place] [address] Dear Mr. Lucas Meek: The [facility] in [facility] is trying to reach you to schedule an appointment. If you have already been in cont act with the clinic and scheduled an appointment you may disregard this letter. If we do not hear from you w ithin 14 days we will assume you no longer desire an appointment. Please call one of the numbers provided below so that we may find a suitable date for you: Direct: [phone] Ext [phone] Toll Free: [phone] Ext [phone] We look forward to hearing from you. Sincerely, Clinical Operations Nov 28, 2021 04:53 PM ADMINISTRATIVE NOTE: EVARISTO GARCIA [facility] TITLE: Has Admin Note [facility] KATHERINE STANDARD TITLE: ADMINISTRATIVE NOTE DATE OF NOTE: NOV 28, 2021@16:53 ENTRY DATE: NOV 28, 2021@16:53:41 AUTHOR: EVARISTO GARCIA COSIGNER: URGENCY: STATUS: COMPLETED Reason for call Clinic Name:[facility] 4 M2RE RTC 1st call, Letter sent left a voicemail to call and schedule for 07/21/19 23. /emely/ EVARISTO GARCIA Signed: 11/28/2021 16:54
--- OUTSIDE RECORDS SUMMARY | 2022-01-19 08:05 | XMS_ITS ---
DAILY HOSPITALIZATION DATA [facility] Encounter Summary Created on:December 15, 2021 Patient:LUCAS MEEK Sex:Male :1950 Author Organization [facility] Address [address] [place] [id number] Support Name Relationship Address Phone YUSRA MEEK Unavailable [address] [place] [place] [address] YUSRA MEEK Unavailable [address] [place] [facility] [place] [address] CLAY MOSLEY Unavailable Unavailable SJ SANTACRUZ Unavailable [...] MEDICARE MEDICARE PART Jun 18, PART B [id number] DO KALYANI PATIENT (WNR) (M) B 2016 13A 1 UGLAS MEDICARE MEDICARE PART Jun 18, PART A [id number] DO KALYANI PATIENT (WNR) (M) A 2016 13A 1 [place]AS MEDICARE MEDICARE PART Jun 18, PART A [id number] KALYANIDO PATIENT (WNR) (M) A 2017 VH81 2 UGLAS MEDICARE MEDICARE PART Jun 18, PART B [id number] DO KALYANI PATIENT (WNR) (M) B 2017 VH81 2 LAS UNITED MEDICARE MCR(Jun [id number] Luz MEEK PATIENT HEALTHCARE ADVANTAGE NR) 2021 37 0 [facility] (WNR) Selected Encounter This section includes the information on record at [place] for the Encounter. Date/Time Encounter Type Encounter Description Reason Provider Source Dec 15, 2021 05:47 Inpatient Visit DAILY HOSPITALIZATION DATA AM [facility] Encounter Template Text not used by [place] Plan of Treatment: Future Appointments (+ 6 months) and Future Tests (+/- 45 days) The Plan of Treatment section includes future care activities for the patient from all [place] treatmentfacilities. This section includes future appointments and future orders which are active, pending orscheduled.Future Appointments This section includes appointments that were scheduled to occur 6 months from the date of the Encounter, up to a maximum of 20 appointments. The data comes from all [place] treatment facilities. Appointment Date/Time Appointment Type Appointment Facili ty Name Dec 21, 2021 08:00 AM [place] [facility] Jan 06, 2022 02:00 PM [place] [facility] Jan 10, 2022 11:30 AM AMBULATORY - MEDICINE [facility] Jan 24, 2022 08:00 AM [place] [facility] Feb 21, 2022 10:00 AM [place] [facility] Mar 21, 2022 10:30 AM AMBULATORY - MEDICINE [facility] Active, Pending, and Scheduled [...] the Encounter. The data comes from all [place] treatment [facility]. Test Date/Time Test Type Test Details Facility Name October 31, 2021 07:37 AM Consult Order [facility]ITY [facility]-EGD [facility] Cons Counselor Education Professor's Choice November 15, 2021 10:37 AM Consult Order [facility] CARE-PODIATRY Cons Counselor Education Professor's Choice Dec 06, 2021 12:52 PM Pharmacy [place] Infusion Order [facility] Dec 06, 2021 03:24 PM Pharmacy [place] [facility] Dec 06, 2021 03:40 PM Pharmacy [place] Order [facility] Dec 15, 2021 08:41 AM Consult Order SPEECH PATHOLOGY [place] OUT[place] Cons [facility] Counselor Education Professor's Choice Jan 15, 2022 10:08 PM Consult Order [facility] CARE-PALLIATIVE CARE Cons Counselor Education Professor's Choice Lab Results: +/- 30 days of [...] Reference Range Comment Dec 15, 2021 [place] P4 GLU,BUN,CREAT,LYTES,CA Speci men Type: PLASMA 06:43 AM [facility] Comment: Tests performed on Sand Sign (405) SN:[id number] Ordering Provid er: ISATU TODD Report Released Date/Time: Dec 11, 2021 07:42 AM Reporting Lab: [facility] T [facility] [address] [facility] [address] Performing Lab: [facility] [address] [facility] [address] UREA NITROGEN 9 7-25 SODIUM 137 135-145 POTASSIUM 3.8 3.5-5.0 CHLORIDE 105 100-110 CARBON DIOXIDE 26 20-30 ANION GAP 6 4-16 GLUCOSE 102 H 65-100 CREATININE 0.64 0.5-1.5 CALCIUM 8.1 L 8.5-10.5 eGFR(CKD-EPI 2020) >90.0 >60 Dec 15, 2021 06:43 AM [facility] CBC PROFILE Sp ecimen Type: BLOOD No comment enter ed. Ordering Provid er: ISATU TODD Report Released Date/Time: Dec 10, 2021 07:22 AM Reporting Lab: [facility] [address] [facility] [address] Performing Lab: [facility] [address] [facility] [address] WBC 5.7 4.5-11.0 RBC 4.22 L 4.23-5.66 [...] ABSOLUTE NRBC 0.00 0-0 Dec 14, 2021 [facility] CYTOGENETIC Specimen Type: ESOPHAGUS 02:59 PM [facility] FISH([facility] Comment: ~For T est: CYTOGENETIC FISH([facility]) ~FISH HER 2 NUE, FFPE See full report in [employer] Image display viewer/tab#LAB-Reference Ordering Provid er: NIURKA MILLER Report Released Date/Time: Dec 21, 2021 12:11 PM Reporting Lab: [facility] [address] [facility] [address] Performing Lab: [facility] CYTOGENETIC FISH([facility]) comment Dec 14, 2021 [facility] P4 GLU,BUN,CREAT,LYTES,CA Speci men Type: PLASMA 06:27 AM [facility] Comment: Tests performed on Sand Sign (405) SN:[id number] Ordering Provid er: ISATU TODD Report Released Date/Time: Dec 11, 2021 07:42 AM Reporting Lab: [facility] [address] [facility] [address] Performing Lab: [facility] [address] [facility] [address] UREA NITROGEN 10 7-25 SODIUM 137 135-145 POTASSIUM 4.0 3.5-5.0 CHLORIDE 104 100-110 CARBON DIOXIDE 25 20-30 ANION GAP 8 4-16 GLUCOSE 99 65-100 CREATININE 0.67 0.5-1.5 CALCIUM 8.2 L 8.5-10.5 eGFR(CKD-EPI 2020) >90.0 >60 Dec 14, 2021 06:27 AM [facility] Sp ecimen Type: BLOOD No comment enter ed. Ordering Provid er: ISATU TODD Report Released Date/Time: Dec 10, 2021 07:22 AM Reporting [facility]: [facility] [address] [facility] [address] Performing Lab: [facility] [address] [facility] [address] WBC 6.0 4.5-11.0 RBC 4.29 4.23-5.66 HGB [...] 0.00 0-0 Dec 13, 2021 06:34 AM [facility] CBC PROFILE Sp ecimen Type: BLOOD No comment enter ed. Ordering Provid er: ISATU TODD Report Released Date/Time: Dec 10, 2021 07:22 AM Reporting Lab: [facility] [address] [facility] [address] Performing Lab: [facility] [address] [facility] [address] WBC 5.6 4.5-11.0 RBC 4.28 4.23-5.66 HGB [...] ABSOLUTE NRBC 0.00 0-0 Dec 13, 2021 [facility] P4 GLU,BUN,CREAT,LYTES,CA Speci men Type: PLASMA 06:34 AM [facility] Comment: Tests performed on Sand Sign (405) SN:[id number] Ordering Provid er: ISATU TODD Report Released Date/Time: Dec 11, 2021 07:42 AM Reporting Lab: [facility] [address] [facility] [address] Performing Lab: [facility] [address] [facility] [address] UREA NITROGEN 12 7-25 SODIUM 136 135-145 POTASSIUM 3.9 3.5-5.0 CHLORIDE 105 100-110 CARBON DIOXIDE 24 20-30 ANION GAP 7 4-16 GLUCOSE 102 H 65-100 CREATININE 0.66 0.5-1.5 CALCIUM 8.3 L 8.5-10.5 eGFR(CKD-EPI 2020) >90.0 >60 Dec 12, 2021 [facility] GLU,BUN,CREAT,LYTES,CA Speci men Type: PLASMA 06:21 AM [facility] Comment: Tests performed on Sand Sign (405) SN:[id number] Ordering Provid er: ISATU TODD Report Released Date/Time: Dec 11, 2021 07:42 AM Reporting Lab: [facility] [address] [facility] [address] Performing Lab: [facility] [address] [facility] [address] UREA NITROGEN 11 7-25 SODIUM 139 135-145 POTASSIUM 4.1 3.5-5.0 CHLORIDE 107 100-110 CARBON DIOXIDE 24 20-30 ANION GAP 8 4-16 GLUCOSE 110 H 65-100 CREATININE 0.70 0.5-1.5 CALCIUM 8.3 L 8.5-10.5 eGFR(CKD-EPI 2020) >90.0 >60 Dec 12, 2021 06:21 AM [facility] CBC PROFILE Sp ecimen Type: BLOOD No comment enter ed. Ordering Provid er: ISATU TODD Report Released Date/Time: Dec 10, 2021 07:22 AM Reporting Lab: [facility] [address] [facility] [address] Performing Lab: [facility] [address] [facility] [address] WBC 5.5 4.5-11.0 RBC 4.37 4.23-5.66 HGB [...] 0.00 0-0 Dec 12, 2021 06:00 AM [employer] MAGNESIUM Sp ecimen Type: PLASMA Comment: Testin g Performed on Sand Sign (405) SN:[id number] Ordering Provid er: ISATU TODD Report Released Date/Time: Dec 12, 2021 08:24 AM Reporting Lab: [place] [facility] [address] [facility] [address] Performing Lab: [facility] [place] [facility] [address] [facility] [address] MAGNESIUM 1.8 1.6-2.6 Dec 12, 2021 06:00 AM [employer] PHOSPHORUS Sp ecimen Type: PLASMA Comment: Testin g Performed on Sand Sign (405) SN:[id number] Ordering Provid er: ISTAU TODD Report Released Date/Time: Dec 12, 2021 08:24 AM Reporting Lab: [place] [facility] [address] [facility] [address] Performing Lab: [place] [facility] [address] [facility] [address] PHOSPHORUS 3.1 2.5-5.0 Dec 11, 2021 06:15 AM [place] [facility] [employer] ELECTROLYTES Sp ecimen Type: PLASMA Comment: Tests performed on Sand Sign (405) SN:[id number] Ordering Provid er: ISATU TODD Report Released Date/Time: Dec 10, 2021 07:22 AM Reporting Lab: [place] [facility] [address] [facility] [address] Performing Lab: [place] [facility] [address] [facility] [address] SODIUM 137 135-145 POTASSIUM 4.3 3.5-5.0 CHLORIDE 108 100-110 CARBON DIOXIDE 20 20-30 ANION GAP 9 4-16 Dec 11, 2021 06:15 AM [facility] [employer] CBC PROFILE Sp ecimen Type: BLOOD Comment: Result s checked Ordering Provid er: ISATU TODD Report Released Date/Time: Dec 10, 2021 07:22 AM Reporting Lab: [place] [facility] [address] [facility] [address] Performing Lab: [place] [facility] [address] [facility] [address] WBC 5.8 4.5-11.0 RBC 4.37 4.23-5.66 HGB [...] 0.00 0-0 Dec 11, 2021 06:00 AM [facility] PHOSPHORUS Sp ecimen Type: PLASMA Comment: Tests performed on Sand Sign (135) SN:[id number] Results checked Ordering Provid er: ISATU TODD Report Released Date/Time: Dec 11, 2021 07:44 AM Reporting Lab: [facility] [place] [facility] [address] [facility] [address] Performing Lab: [place] [facility] [address] [facility] [address] PHOSPHORUS 3.0 2.5-5.0 Dec 10, 2021 08:05 AM [place] [facility] MAGNESIUM Sp ecimen Type: PLASMA Comment: [place] [id number] on Dec 10, 2021@08:31 Tests performed on Sand Sign (405) SN:[id number] Ordering Provid er: ISATU TODD Report Released Date/Time: Dec 10, 2021 07:22 AM Reporting Lab: [place] [facility] [address] [place] [facility] [place] [address] Performing Lab: [place] [facility] [address] [place] [facility] [place] [place] [place] [address] MAGNESIUM 1.7 1.6-2.6 Dec 10, 2021 08:05 AM [place] [facility] PHOSPHORUS Sp ecimen Type: PLASMA Comment: [place] [id number] on Dec 10, 2021@08:31 Tests performed on Sand Sign (405) SN:[id number] Ordering Provid er: ISATU TODD Report Released Date/Time: Dec 10, 2021 07:22 AM Reporting Lab: [place] [facility] [address] [place] [facility] [place] [place] [place] [address] Performing Lab: [place] [facility] [address] [place] [facility] [place] [place] [address] PHOSPHORUS 1.8 L 2.5-5.0 Dec 10, 2021 08:05 AM [place] UREA NITROGEN Specimen Type: PLASMA [facility] Comment: [place] [id number] on Dec 10, 2021@08:31 Tests performed on Sand Sign (405) SN:[id number] Ordering Provid er: ISATU TODD Report Released Date/Time: Dec 10, 2021 07:22 AM Reporting Lab: [place] [facility] [address] [place] [facility] [place] [place] [address] Performing Lab: [place] [facility] [address] [place] [facility] [place] [place] [place] [address] UREA NITROGEN 8 7-25 Dec 10, 2021 08:05 AM [place] [facility] GLUCOSE Sp ecimen Type: PLASMA Comment: [place] [id number] on Dec 10, 2021@08:31 Tests performed on Sand Sign (405) SN:[id number] Ordering Provid er: ISATU TODD Report Released Date/Time: Dec 10, 2021 07:22 AM Reporting Lab: [place] [facility] [address] [facility] [address] Performing Lab: [place] [facility] [address] [facility] [address] GLUCOSE 144 H 65-100 Dec 10, 2021 08:05 AM [place] [facility] CALCIUM Sp ecimen Type: PLASMA Comment: [place] [id number] on Dec 10, 2021@08:31 Tests performed on Sand Sign (405) SN:[id number] Ordering Provid er: ISATU TODD Report Released Date/Time: Dec 10, 2021 07:22 AM Reporting Lab: [place] [facility] [address] [facility] [address] Performing Lab: [place] [facility] [address] [facility] [address] CALCIUM 8.3 L 8.5-10.5 Dec 10, 2021 08:05 AM [place] [facility] ELECTROLYTES Sp ecimen Type: PLASMA Comment: [place] [id number] on Dec 10, 2021@08:31 Tests performed on Sand Sign (405) SN:[id number] Ordering Provid er: ISATU TODD Report Released Date/Time: Dec 10, 2021 07:22 AM Reporting Lab: [place] [facility] [address] [facility] [address] Performing Lab: [place] [facility] [address] [facility] [address] SODIUM 139 135-145 POTASSIUM 3.7 3.5-5.0 CHLORIDE 107 100-110 CARBON DIOXIDE 24 20-30 ANION GAP 8 4-16 Dec 10, 2021 08:05 AM [place] [facility] CBC PROFILE Sp ecimen Type: BLOOD No comment enter ed. Ordering Provid er: ISATU TODD Report Released Date/Time: Dec 10, 2021 07:22 AM Reporting Lab: [place] [facility] [address] [facility] [address] Performing Lab: [place] [facility] [address] [facility] [address] WBC 7.0 4.5-11.0 RBC 4.54 4.23-5.66 HGB [...] PLASMA AM [facility] PANEL [place]: [place] [id number] on Dec 10, 2021@08:31 Tests performed on Sand Sign (405) SN:[id number] Ordering Provid er: ISATU TODD Report Released Date/Time: Dec 10, 2021 07:22 AM Reporting Lab: [facility] [address] [facility] [address] Performing Lab: [facility] [address] [facility] [address] CREATININE 0.78 0.5-1.5 eGFR(CKD-EPI 2020) >90.0 >60 Dec 09, 2021 06:46 AM [place] [facility] MAGNESIUM Sp ecimen Type: PLASMA Comment: Tests performed on Sand Sign (405) SN:[id number] Ordering Provid er: ISATU TODD Report Released Date/Time: Dec 08, 2021 10:23 AM Reporting Lab: [place] [facility] [address] [facility] [address] Performing Lab: [place] [facility] [address] [facility] [address] MAGNESIUM 1.6 1.6-2.6 Dec 09, 2021 [facility] P4 GLU,BUN,CREAT,LYTES,CA Speci men Type: PLASMA 06:46 AM [facility] Comment: Tests performed on Sand Sign (405) SN:[id number] Ordering Provid er: ISATU TODD Report Released Date/Time: Dec 08, 2021 05:00 PM Reporting Lab: [facility] [address] [facility] [address] Performing Lab: [facility] [address] [facility] [address] UREA NITROGEN 6 L 7-25 SODIUM 134 L 135-145 POTASSIUM 3.7 3.5-5.0 CHLORIDE 103 100-110 CARBON DIOXIDE 23 20-30 ANION GAP 8 4-16 GLUCOSE 112 H 65-100 CREATININE 0.70 0.5-1.5 CALCIUM 8.1 L 8.5-10.5 eGFR(CKD-EPI 2020) >90.0 >60 Dec 09, 2021 06:46 AM [facility] CBC PROFILE Sp ecimen Type: BLOOD No comment enter ed. Ordering Provid er: ISATU TODD Report Released Date/Time: Dec 08, 2021 05:00 PM Reporting Lab: [facility] [address] [facility] [address] Performing Lab: [facility] [address] [facility] [address] WBC 7.1 4.5-11.0 RBC 4.40 4.23-5.66 HGB [...] 0-0 Dec 08, 2021 06:39 AM [facility] MAGNESIUM Sp ecimen Type: PLASMA Comment: Testin g Performed on Sand Sign (405) SN:[id number] Ordering Provid er: ISATU TODD Report Released Date/Time: Dec 07, 2021 10:32 AM Reporting Lab: [facility] [address] [facility] [address] Performing Lab: [facility] [address] [facility] [address] MAGNESIUM 1.5 L 1.6-2.6 Dec 08, 2021 06:39 AM [facility] CBC PROFILE Sp ecimen Type: BLOOD No comment enter ed. Ordering Provid er: ISATU TODD Report Released Date/Time: Dec 07, 2021 10:32 AM Reporting Lab: [facility] [address] [facility] [address] Performing Lab: [facility] [address] [facility] [address] WBC 8.4 4.5-11.0 RBC 4.75 4.23-5.66 HGB [...] ABSOLUTE NRBC 0.00 0-0 Dec 08, 2021 [facility] P4 GLU,BUN,CREAT,LYTES,CA Speci men Type: PLASMA 06:39 AM [facility] Comment: Testin g Performed on Pham Satispay (405) SN:[id number] Ordering Provid er: ISATU TODD Report Released Date/Time: Dec 07, 2021 10:32 AM Reporting Lab: [facility] [address] [facility] [address] Performing Lab: [facility] [address] [facility] [address] UREA NITROGEN 6 L 7-25 SODIUM 136 135-145 POTASSIUM 3.3 L 3.5-5.0 CHLORIDE 104 100-110 CARBON DIOXIDE 22 20-30 ANION GAP 10 4-16 GLUCOSE 133 H 65-100 CREATININE 0.76 0.5-1.5 CALCIUM 8.4 L 8.5-10.5 eGFR(CKD-EPI 2020) >90.0 >60 Dec 07, 2021 [facility] P4 GLU,BUN,CREAT,LYTES,CA Speci men Type: PLASMA 06:42 AM [facility] Comment: Tests performed on Pham Satispay (405) SN:[id number] Ordering Provid er: PORFIRIO WALTERS Report Released Date/Time: Dec 06, 2021 06:57 PM Reporting Lab: [place] [facility] [address] [facility] [address] Performing Lab: [facility] [address] [facility] [address] UREA NITROGEN 9 7-25 SODIUM 135 135-145 POTASSIUM 3.5 3.5-5.0 CHLORIDE 103 100-110 CARBON DIOXIDE 22 20-30 ANION GAP 10 4-16 GLUCOSE 92 65-100 CREATININE 0.73 0.5-1.5 CALCIUM 8.0 L 8.5-10.5 eGFR(CKD-EPI 2020) >90.0 >60 Dec 07, 2021 06:42 [place] LIVER PROFILE Specimen Typ e: PLASMA AM [facility] Comment: Tests performed on Gungroo Pack Press Operator (405) SN:[id number] Ordering Provid er: PORFIRIO WALTERS Report Released Date/Time: Dec 06, 2021 06:57 PM Reporting Lab: [facility] [address] [facility] [address] Performing Lab: [facility] [address] [facility] [address] PROTEIN, TOTAL 5.7 L 6.0-8.5 ALBUMIN 2.4 L 3.2-5.0 BILIRUBIN, TOTAL 0.4 0.2-1.2 ALKALINE PHOSPHATASE 109 40-150 ALT(SGPT) 10 7-52 AST(SGOT) 15 5-34 FIB-4 SCORE 1.92 <2.67 Dec 07, 2021 06:42 AM [place] [facility] CBC PROFILE Specimen Type: BLOOD [facility] No comment enter ed. Ordering Provid er: PORFIRIO WALTERS Report Released Date/Time: Dec 06, 2021 06:57 PM Reporting Lab: [facility] [address] [facility] [address] Performing Lab: [facility] [address] [facility] [address] WBC 5.7 4.5-11.0 RBC 4.15 L 4.23-5.66 [...] [facility] %) AUTOMATED Comment: Tests performed on Sand Sign (405) SN:[id number] Ordering Provid er: ISATU TODD Report Released Date/Time: Dec 07, 2021 10:28 AM Reporting Lab: [place] [facility] [address] [facility] [address] Performing Lab: [place] [facility] [address] [facility] [address] RETICULOCYTES (%) AUTOMATED 1.23 0. 6-2.0 RETICULOCYTES (ABS) AUTOMATED 0.052 0.030-0.090 Dec 06, 2021 09:45 [place] MRSA SURVL NARES Specimen Ty pe: NARES PM [facility] DNA No comment enter ed. Ordering Provid er: ALVARO VARGHESE Report Released Date/Time: Dec 07, 2021 02:20 AM Reporting Lab: [place] [facility] [address] [facility] [address] Performing Lab: [place] [facility] [address] [facility] [address] MRSA SURVL NARES DNA NEGATIVE NEGATIVE Dec 06, 2021 06:00 [place] URINALYSIS W/REFLEX TO Speci men Type: URINE PM [facility] CULTURE No comment enter ed. Ordering Provid er: JELANI SÁNCHEZ Report Released Date/Time: Dec 06, 2021 11:57 AM Reporting Lab: [place] [facility] [address] [facility] [address] Performing Lab: [place] [facility] [address] [facility] [address] URINE COLOR Arlin YELLOW SPECIFIC GRAVITY 1.029 [...] 21, RIVER VARIANT Comment: https://www.cdc.gov/coronavirus/2019-ncov/cases-updates/variant- surveillance/variant-info.html The [employer] SARS CoV 2 [employer] Assay-GX is a next-generation sequencing (NGS) assa [address] [facility] SEQUENCING y that determine s the complete genome sequence of the SARS-CoV-2 virus. The assay contains variant-tolerant primers to broaden and improve the coverage for variant detection and increase the sensitivity 12:00 [facility] PNL(WH) of the panel to enable detection from lower viral titer samples. The assay is run on the [employer]band Sequencer, which performs automated library preparation, sequencing, analysis, and reporting. PM The sequence an alysis includes determination of viral phylogenetic lineage by comparison to the reference strain Wuhan-Hu-1, GenBank: [id number]. Sequence determination may not be possible owing [...] and its performance characteristics determined by the [facility] Molecular Diagnostics Laboratory, which is certified under the Clinical Laboratory Improveme nt Amendments (C MARCO) as qualified to perform high complexity clinical laboratory testing. This test is validated for clinical use at [facility] and should not be regarded as investigational or for research. The FDA does not require this test to go through premarket FDA review, and therefore it has not been cleared or approved by the FDA. This report was reviewed and approved by the on-service pathologist. Ordering Provid er: JELANI SÁNCHEZ Report Released Date/Time: Dec 06, 2021 01:13 PM Reporting Lab: [facility] [address] [facility] [address] Performing Lab: [facility] [address] [facility] [address] SARS-CoV-2 CLADE() 22C (OMICRON) SARS-CoV-2 LINEAGE() BA.2.12.1 Dec 06, 2021 12:00 [facility] COVID-19 AG SCREEN Specimen Type: NASAL CAVITY PM [facility] PANEL BINAX(405) Comment: Testi ng Performed By: Mike Briscoe Ordering Provid er: JELANI SÁNCHEZ Report Released Date/Time: Dec 08, 2021 08:23 AM Reporting Lab: [facility] [address] [facility] [address] Per[facility]: [facility] [address] [facility] [address] COVID-19 AG SCRN(wrj BINAX) POSITIVE HH NE G Dec 06, 2021 12:00 PM [facility] TROPONIN II Sp ecimen Type: PLASMA Comment: Tests performed on Pham Pack Press Operator (405) [id number] Ordering Provid er: JELANI SÁNCHEZ Report Released Date/Time: Dec 06, 2021 11:57 AM Reporting [facility] [address] [facility] [address] Performing Lab: [facility] [address] [facility] [address] TROPONIN II 0.03 0.00-0.29 Dec 06, 2021 [place] P4 GLU,BUN,CREAT,LYTES,CA Speci men Type: PLASMA 12:00 PM [facility] Comment: Testin g Performed on [employer] Operator (405) [id number] Ordering Provid er: JELANI SÁNCHEZ Report Released Date/Time: Dec 06, 2021 11:57 AM Reporting Lab: [place] [facility] [address] [facility] [address] Performing Lab: [place] [facility] [address] [facility] [address] UREA NITROGEN 13 7-25 SODIUM 138 135-145 POTASSIUM 3.8 3.5-5.0 CHLORIDE 103 100-110 CARBON DIOXIDE 23 20-30 ANION GAP 12 4-16 GLUCOSE 105 H 65-100 CREATININE 0.90 0.5-1.5 CALCIUM 8.7 8.5-10.5 eGFR(CKD-EPI 2020) >90.0 >60 Dec 06, 2021 12:00 PM [facility] LIVER PROFILE Sp ecimen Type: PLASMA Comment: Testin g Performed on [employer] Operator (405) [id number] Ordering Provid er: JELANI SÁNCHEZ Report Released Date/Time: Dec 06, 2021 11:57 AM Reporting Lab: [facility] [facility] [address] [facility] [address] Performing Lab: [facility] [address] [facility] [address] PROTEIN, TOTAL 6.6 6.0-8.5 ALBUMIN 2.8 L 3.2-5.0 BILIRUBIN, TOTAL 0.6 0.2-1.2 ALKALINE PHOSPHATASE 134 40-150 ALT(SGPT) 13 7-52 AST(SGOT) 18 5-34 FIB-4 SCORE 1.94 <2.67 Dec 06, 2021 12:00 PM [facility] BNP(P) Sp ecimen Type: PLASMA Comment: Tests performed on Pham Pack Press Operator (405) [id number] Ordering Provid er: JELANI SÁNCHEZ Report Released Date/Time: Dec 06, 2021 11:57 AM Reporting Lab: [facility] [address] [facility] [address] Performing [facility]: [facility] [address] [facility] [address] BNP(P) 224.8 H 10-100 Dec 06, 2021 [facility] COVID-19+FLU/RSV DIAGNOSTIC Spe cimen Type: NASOPHARYNX 12:00 PM [facility] PANEL(405) Comment: Tests performed on D8A Group Genexpert (405) Critical results called to and read back by: ALESHIA WILKINSON RN 12/06/21 @ 1312 Ordering Provid er: JELANI SÁNCHEZ Report Released Date/Time: Dec 06, 2021 11:57 AM Reporting Lab: [facility] [address] [facility] [address] Performing Lab: [place] [facility] [address] [facility] [address] FLU A(PCR) NEGATIVE NEGATIVE FLU B(PCR) NEGATIVE NEGATIVE RSV(PCR) NEGATIVE NEGATIVE COVID-19(TNP-rod-DCBBSZSRL) DETECTED HH NO T DETECTED Dec 06, 2021 12[facility] Sp ecimen Type: BLOOD No comment enter ed. Ordering Provid er: JELANI SÁNCHEZ Report Released Date/Time: Dec 06, 2021 11:57 AM Reporting Lab: [facility] [address] [facility] [address] Performing Lab: [facility] [address] [facility] [address] WBC 7.2 4.5-11.0 RBC 4.86 4.23-5.66 HGB [...] Amilcar dy Source Pressure Rate Mass Index Dec 15, 98.1 F 99 136/67 18 /min 98 % 0 [place] 2021 11:35 /min mm[Hg] [facility] Nov 30, 0 [place] 2021 08:00 [facility] Dec 15, 96.9 F 93 134/71 18 /min 97 % 0 [place] 2021 05:01 /min mm[Hg] [facility] Social History: Smoking Status (Most current) and Tobacco Use (All prior to encounter date) This section includes the most current, and the historical, smoking and tobacco-related health factors from the [place] facility where the Encounter took place.Current Smoking Status This section includes the most current smoking, or tobacco-related health factor, from the [place] facility where the Encounter took place. Date/Time Current Smoking Status Comment Facility Dec 06, 2021 11:40 AM QUIT TOBACCO USE > 7 YEARS AGO [facility] Tobacco Use History This section includes a history of the smoking, or tobacco- related health factors, that were collected on or before the date of the Encounter. The data comes from the [place] facility where the Encounter took place. Date/Time Smoking Status/Tobacco Use Comment [facility] Apr 01, 2020 01:16 PM QUIT TOBACCO USE 1-7 YEARS AGO [facility] Mar 24, 2020 03:00 PM QUIT TOBACCO [...] CURRENT SMOKER [facility] Yates [facility] Radiology Reports: +/- 30 days of [...] the Encounter. The data comes from all [place] treatment facilities. Date/Time Radiology Report Provider Source Dec 13, 2021 12:57 PM MRI ABDOMEN W/WO CONTRAST: MARYELLEN LONG [facility] LUCAS MEEK N [id number] -1950 [facility] Exm Date: DEC 13, 2021@12:57 Req Phys: ISATU TODD Loc: OP Unknown/0 12-15-2021@13:20 Img Loc: MRI IMAGING (OOS) Service: [facility]GENERAL MEDICINE (Case [id number] COMPLETE) MRI ABDOMEN W/WO CONTRAST (M RI Detailed) CPT:13090 Reason for Study: further characterization of a [...] new lyphadenopathy REQUESTING MD: Isatu Todd PAGER: [phone] PHONE: [phone] Weight: 232.2 lb [105.32 kg] (12/12/2021 05:00) [...] patient will need to arrange for a patient transportation driver to take him/her home after the [...] 15, 2021 Date Verified: DEC 15, 2021 Frame Opener E-Sig:/EMELY/MARYELLEN LONG Report: MRI ABDOMEN W/WO CONTRAST 12/13/2021 12:57 PM COMPARISON: 12/10/2021 abdomen/pelvis CT, chest CT. INDICATION: further characterization of abnorma [...] MALIGNANCY Primary Interpreting Staff: Staff AMELIA THOMAS (Frame Opener) / Dec 10, 2021 09:[address] ABDOMEN & PELVIS: RADIOLOGY,OUTSIDE [facility] [place] LUCAS MEEK N [id number] -1950 M [facility] Ex Date: DEC 10, 2021@09:30 Req Phys: ISATU TODD E Josseline Loc: 1S MED/12-10@10:57 Img Loc: CT SCAN (OOS) Service: [facility] (Case [id number] COMPLETE) CT ABD & PELVIS WITHOUT CONT RAST (CT Detailed) CPT:26560 Reason for Study: 71 yo male with [...] RADIOLOGY [phone] to speak to the appropriate records technician. Report Status: Verified Date Reported: DEC 10, 2021 Date Verified: DEC 10, 2021 Frame Opener E-Sig: Report: EXAM: CT abdomen and pelvis [...] ph nodes. READING PHYSICIAN: Ramone Munoz D.O. -[phone] 12/10/2021 10:55 EDT [facility] National Teleradiology Program [phone] (For Medical Practitioner Use Only ) [address], [facility] [address], [address] [place] [address] Attention Patients / Veterans: If you have ques tions or concerns about these test results, please contact your o rdering provider or primary care team. Primary Diagnostic Code: SIGNIFICANT ABNORMALIT Y, ATTN NEEDED Primary Interpreting Staff: RADIOLOGY,OUTSIDE SERVICE, Staff Physician / Dec 09, 2021 07:34 AM BASW (MODIFIED): JESSIE CHENEY [facility] [place] LUCAS MEEK N [id number] -1950 [facility] Ex Date: DEC 09, 2021@07:34 Req Phys: ISATU TODD Pat Loc: 1S MED/12-09@11:26 Img Loc: XRAY (OOS) Service: [facility] MEDICINE (Case [id number] COMPLETE) BASW (MODIFIED) (EUNICE Alex d) CPT:26856 Contrast Media : Barium Reason for Study: dysphagia ?esophageal spasm Clinical History: Report Status: Verified Date Reported: DEC 09, 2021 Date Verified: DEC 09, 2021 Frame Opener E-Sig:/ES/JESSIE CHENEY Report: BASW (MODIFIED) , 12/09/2021 [...] REQUIRED Primary Interpreting Staff: JESSIE CHENEY, RADIOLOGIST (Frame Opener) /TLC Dec 06, 2021 12:[address] CHEST (INCLUDES ADRENALS): JESSIE CHENEY LUCAS LARES [id number] -1950 M [facility] Exm Date: DEC 06, 2021@12:59 Req Phys: JELANI SÁNCHEZ Pat Loc: [facility] ED DAYS M 1RD (Req'g Loc) Img Loc: CT SCAN (OOS) Service: Unknown (Case [id number] COMPLETE) CT THORAX W/O CONT (CT Detai led) CPT:37396 Reason for Study: Opacification right chest Clinical History: No contrast allergy BUN: 13 (12/06/21 12:00) CREATI: 0.90 (12/06/21 12:00) eGFR 05/16/21 09:43 52 L Weight: 232.6 lb [105.51 kg] (12/06/2021 11:40) BODY MASS INDEX - NO HEIGHTS FOUND Pager number: [phone] STAT orders MUST be called t o RADIOLOGY [phone] to speak to the appropriate records technician. Indications - Other: Opacification right chest, covid positive, lung cancer histo Report Status: Verified Date Reported: DEC 06, 2021 Date Verified: DEC 06, 2021 Frame Opener E-Sig:/ES/JESSIE CHENEY Report: CT THORAX W/O CONT [...] REQUIRED Primary Interpreting Staff: JESSIE CHENEY, RADIOLOGIST (Frame Opener) Primary Interpreting Resident: PRINCE CHAMPION, Resident /BR Dec 06, 2021 11:58 AM CHEST SINGLE VIEW: JESSIE CHENEYLUCAS N [id number] -1950 M [facility] Exm Date: DEC 06, 2021@11:58 Req Phys: JELANI SÁNCHEZ Pat Loc: [facility] ED DAYS M 1RD (Req'g Loc) Img Loc: XRAY (OOS) Service: Unknown (Case [id number] COMPLETE) CHEST SINGLE VIEW (RAD Detai led) CPT:52699 Proc Modifiers : PORTABLE EXAM Reason for Study: SOB, home covid test positive Clinical History: Report Status: Verified Date Reported: DEC 06, 2021 Date Verified: DEC 06, 2021 Frame Opener E-Sig:/ES/JESSIE CHENEY Report: Exam type: Chest x-ray [...] REQUIRED Primary Interpreting Staff: JESSIE CHENEY, RADIOLOGIST (Frame Opener) /TLC Pathology Reports: +/- 30 days of [...] the Encounter. The data comes from all [place] treatment facilities. Date/Time Pathology Report Provider Source Jan 03, 2022 10:28 AM LR SURGICAL PATHOLOGY REPORT: STEFANY MILLER [place] LOCAL TITLE: LR SURGICAL PATHOLOGY REPORT [facility] STANDARD TITLE: PATHOLOGY REPORT DATE OF NOTE: JAN 03, 2022@10:28:01 ENTRY DATE: JAN 03, 2022@10:28:01 AUTHOR: NIURKA MILLER EXP COSIGNER: URGENCY: STATUS: COMPLETED $APHDR Reporting Lab: [facility] [CLIA# [id number]] [address] [place] [address] - - - - - - [...] (Received Dec 14, 2021 15:00): ESOPHAGUS BIOPSIES *+*+*+*+*+*+*+*+*+*+*+*+*+*+*+ MODIFIED REPORT * +*+*+*+*+*+*+*+*+*+*+*+*+*+*+ - - - - - - - [...] automatically d ocumented from SURGERY package case #[id number] Field (#32) PRINCIPAL PRE-OP DIAGNOSIS, (#.72) OTHER [...] automatically d ocumented from SURGERY package case #[id number] Field (#34) PRINCIPAL POST-OP DIAG, (#.74) OTHER [...] Label: Lucas Meek Paperwork: Lucas Meek Cassette: [id number];..;KALYANI;.;405;[id number] Specimen is labeled: ES bx Received in formalin are several pieces of pale boyd and brown tissue, 1.2 x 0.7 cm in aggregate. Submitted entirely in 1 cassette [id number];..;KALYANI;.;405;[id number] SAW 12/15/2021 Microscopic exam: *+* MODIFIED REPORT *+* (Last modified: JAN 03, 2022@09:30:20 typed by NIURKA WADDELL) DIAGNOSIS: A. 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 Kendell long. TIARA Coombs was notified on 12/21/21. Modified on 01/03/22 to include report from [facility] stating that tumor is NEGATIVE for her2/ matheus amplification. The attending pathologist who signature mansoor ears on this report has reviewed all diagnostic slides and has edited t he gross and/or microscopic portion of this report in rendering the final pathologic diagnosis. [address] [address] CPT: 76098 /emely/ NIURKA Yeung MD Signed Jan 03, 2022@10:28 Performing Laboratory: Surgical Pathology Report Performed By: [facility] [CLIA# [id number]] [address] [place] [address] $FTR - - - - - - - - - - - - - - - - - - - - - - - - - - - - - - - - - - - - - - - - (End of report) NIURKA MILLER MD Date Dec 20, 2021 - - - - - - - - - - - - - - - - - - - - - - - - - - - - - - - - - - - - - - - - LUCAS MEEK STANDARD FORM 515 ID:[id number] SEX:M :1950 AGE: 71 LOC: SDM END PCP: Isatu Todd /emely/ NIURKA MILLER Staff Signed: 01/03/2022 10:28 Dec 21, 2021 11:46 AM LR SURGICAL PATHOLOGY REPORT: STEFANY MILLER [facility] DO[place] LOCAL TITLE: LR SURGICAL PATHOLOGY REPORT [facility] STANDARD TITLE: PATHOLOGY REPORT DATE OF NOTE: DEC 21, 2021@11:46:59 ENTRY DATE: DEC 21, 2021@11:46:59 AUTHOR: NIURKA MILLER EXP COSIGNER: URGENCY: STATUS: COMPLETED $APHDR Reporting Lab: [facility] [CLIA# [id number]] [address] [place] [facility] [address] - - - - - - [...] automatically d ocumented from SURGERY package case #[id number] Field (#32) PRINCIPAL PRE-OP DIAGNOSIS, (#.72) OTHER [...] automatically d ocumented from SURGERY package case #[id number] Field (#34) PRINCIPAL POST-OP DIAG, (#.74) OTHER [...] Label: Lucas Meek Paperwork: Lucas Meek Cassette: [id number];..;KALYANI;.;405;[id number] Specimen is labeled: ES bx Received in formalin are several pieces of pale boyd and brown tissue, 1.2 x 0.7 cm in aggregate. Submitted entirely in 1 cassette [id number];..;KALYANI;.;405;[id number] SAW 12/15/2021 Microscopic exam: DIAGNOSIS: A. 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 Kendell longTIARA Barba was notified on 12/21/21. The attending pathologist who signature mansoor ears on this report has reviewed all diagnostic slides and has edited t he gross and/or microscopic portion of this report in rendering the final pathologic diagnosis. [address] [address] CPT: 60045 /emely/ NIURKA Yeung MD Signed Dec 21, 2021@11:46 Performing Laboratory: Surgical Pathology Report Performed By: [facility] [CLIA# [id number]] [address] [place] [address] $FTR - - - - - - - - - - - - - - - - - - - - - - - - - - - - - - - - - - - - - - - - (End of report) NIURKA MILLER MD Date Dec 20, 2021 - - - - - - - - - - - - - - - - - - - - - - - - - - - - - - - - - - - - - - - - LUCAS MEEK STANDARD FORM 515 ID:[id number] SEX:M :1950 AGE: 71 LOC: SDM END PCP: Isatu Todd /emely/ NIURKA Yeung MD Signed: 12/21/2021 11:46 Dec 06, 2021 03:30 PM LR MICROBIOLOGY RE[facility]: [facility] Reporting Lab: [facility] [CLIA# [id number]] [address] [place] [address] Accession [UID]: [id number] [[id number]] Receiv ed: Dec 06, 2021@16:14 Collection sample: BLOOD CUL T BOTTLE(NIRMAL/AERO)Collection date: Dec 06, 2021 15:30 Site/Specimen: BLOOD Provider: EJLANI SÁNCHEZ Comment on specimen: LAC Test(s) ordered: BLOOD CULTURE ANAEROBI C....... completed: Dec 12, 2021 06:18 * BACTERIOLOGY FINAL REPORT => Dec 12, 2021 06:1 8 TECH CODE: 71006 Bacteriology Remark(s): NO GROWTH IN 5 DAYS =--=--=--=--=--=--=--=--=--=--=--=--=--= --=--=--=--=--=--=--=--=--=--=--=--=-- Performing Laboratory: Bacteriology Report Performed By: [facility] [CLIA# [id number]] [address] [place] [address] Dec 06, 2021 03:30 PM LR MICROBIOLOGY REPORT: [facility] Reporting Lab: [facility] [CLIA# [id number]] [address] [place] [address] Accession [UID]: [id number] [[id number]] Receiv ed: Dec 06, 2021@16:14 Collection sample: BLOOD CUL T BOTTLE(NIRMAL/AERO)Collection date: Dec 06, 2021 15:30 Site/Specimen: BLOOD Provider: JELANI SÁNCHEZ Comment on specimen: LAC Test(s) ordered: BLOOD CULTURE AEROBIC. ........ completed: Dec 12, 2021 06:17 * BACTERIOLOGY FINAL REPORT => Dec 12, 2021 06:1 7 TECH CODE: [id number] Bacteriology Remark(s): NO GROWTH IN 5 DAYS =--=--=--=--=--=--=--=--=--=--=--=--=--= --=--=--=--=--=--=--=--=--=--=--=--=-- Performing Laboratory: Bacteriology Report Performed By: [facility] [CLIA# [id number]] [address] [place] [address]
--- OUTSIDE RECORDS SUMMARY | 2022-01-19 08:05 | XMS_ITS ---
DAILY HOSPITALIZATION DATA [facility] Encounter Summary Created on:December 15, 2021 Patient:LUCAS MEEK Sex:Male :1950 Author Organization [facility] Address [address] [place] [id number] Support Name Relationship Address Phone YUSRA MEEK Unavailable [address] [place] [place] [address] YUSRA MEEK Unavailable [address] [place] [facility] [place] [address] CLAY MOSLEY Unavailable Unavailable SJ SANTACRUZ Unavailable [...] MEDICARE MEDICARE PART Jun 18, PART A [id number] DO KALYANI PATIENT (WNR) (M) A 2016 13A 1 UGLAS MEDICARE MEDICARE PART Jun 18, PART A [id number] DO KALYANI PATIENT (WNR) (M) A 2017 VH81 2 LAS MEDICARE MEDICARE PART Jun 18, PART B [id number] DO KALYANI PATIENT (WNR) (M) B 2016 13A 1 UGLAS MEDICARE MEDICARE PART Jun 18, PART B [id number] DO KALYANI PATIENT (WNR) (M) B 2017 VH81 2 UGLAS UNITED MEDICARE MCR(Jun 18 [id number] Luz MEEK PATIENT HEALTHCARE ADVANTAGE NR) 2021 37 0 [facility] (WNR) Selected Encounter This section includes the information on record at [place] for the Encounter. Date/Time Encounter Type Encounter Description Reason Provider Source Dec 15, 2021 08:29 Inpatient Visit DAILY HOSPITALIZATION DATA AM [facility] Encounter Template Text not used by [place] Plan of Treatment: Future Appointments (+ 6 months) and Future Tests (+/- 45 days) The Plan of Treatment section includes future care activities for the patient from all [place] treatmentfacilities. This section includes future appointments and future orders which are active, pending orscheduled.Future Appointments This section includes appointments that were scheduled to occur 6 months from the date of the Encounter, up to a maximum of 20 appointments. The data comes from all [place] treatment facilities. Appointment Date/Time Appointment Type Appointment Facili ty Name Dec 21, 2021 08:00 AM AM[place] [facility] Jan 06, 2022 02:00 PM [place] [facility] Jan 10, 2022 11:30 AM AMBULATORY - MEDICINE [facility] Jan 24, 2022 08:00 AM [place] [facility] Feb 21, 2022 10:00 AM [place]ORY [place] [facility]] Mar 21, 2022 10:30 AM AMBULATORY - [...] the Encounter. The data comes from all [place] treatment [facility]. Test Date/Time Test Type Test Details Facility Name October 31, 2021 07:37 AM Consult Order [facility] Cons Data Manager's Choice November 15, 2021 10:37 AM Consult Order [facility] CARE-PODIATRY Cons Data Manager's Choice Dec 06, 2021 12:52 PM Pharmacy - [place] Infusion Order [facility] Dec 06, 2021 03:24 PM Pharmacy - [place] [facility] Dec 06, 2021 03:40 PM Pharmacy - [place] Order [facility] Dec 15, 2021 08:41 AM Consult Order SPEECH PATHOLOGY [place] OUTPATIENT Cons [facility] Data Manager's Choice Jan 15, 2022 10:08 PM Consult Order [facility] CARE-PALLIATIVE CARE Cons Data Manager's Choice Lab Results: +/- 30 days of [...] Reference Range Comment Dec 15, 2021 [place] P4 GLU,BUN,CREAT,LYTES,CA Speci men Type: PLASMA 06:43 AM [facility] Comment: Tests performed on EcoSynth (405) SN:[id number] Ordering Provid er: ISATU TODD Report Released Date/Time: Dec 11, 2021 07:42 AM Reporting Lab: [facility] [address] [facility] [address] Performing Lab: [facility] [address] [facility] [address] UREA NITROGEN 9 7-25 SODIUM 137 135-145 POTASSIUM 3.8 3.5-5.0 CHLORIDE 105 100-110 CARBON DIOXIDE 26 20-30 ANION GAP 6 4-16 GLUCOSE 102 H 65-100 CREATININE 0.64 0.5-1.5 CALCIUM 8.1 L 8.5-10.5 eGFR(CKD-EPI 2020) >90.0 >60 Dec 15, 2021 06:43 AM [facility] CBC PROFILE Sp ecimen Type: BLOOD No comment enter ed. Ordering Provid er: ISATU TODD Report Released Date/Time: Dec 10, 2021 07:22 AM Reporting Lab: [facility] [address] [facility] [address] Performing Lab: [facility] [address] [facility] [address] WBC 5.7 4.5-11.0 RBC 4.22 L 4.23-5.66 [...] ABSOLUTE NRBC 0.00 0-0 Dec 14, 2021 [facility] CYTOGENETIC Specimen Type: ESOPHAGUS 02:59 PM [facility] FISH([facility]) Comment: ~For T est: CYTOGENETIC FISH([facility]) ~FISH HER 2 NUE, FFPE See full report in [employer] Image display viewer/tab#LAB-Reference Ordering Provid er: NIURKA MILLER Report Released Date/Time: Dec 21, 2021 12:11 PM Reporting Lab: [facility] [address] [facility] [address] Performing Lab: [facility] CYTOGENETIC FISH([facility]) comment Dec 14, 2021 [facility] P4 GLU,BUN,CREAT,LYTES,CA Speci men Type: PLASMA 06:27 AM [facility] Comment: Tests performed on EcoSynth (405) SN:[id number] Ordering Provid er: ISATU TODD Report Released Date/Time: Dec 11, 2021 07:42 AM Reporting Lab: [facility] [address] [facility] [address] Performing Lab: [facility] [address] [facility] [address] UREA NITROGEN 10 7-25 SODIUM 137 135-145 POTASSIUM 4.0 3.5-5.0 CHLORIDE 104 100-110 CARBON DIOXIDE 25 20-30 ANION GAP 8 4-16 GLUCOSE 99 65-100 CREATININE 0.67 0.5-1.5 CALCIUM 8.2 L 8.5-10.5 eGFR(CKD-EPI 2020) >90.0 >60 Dec 14, 2021 06:27 AM [facility] CBC [facility] Sp ecimen Type: BLOOD No comment enter ed. Ordering Provid er: ISATU TODD Report Released Date/Time: Dec 10, 2021 07:22 AM Reporting Lab: [facility] [address] [facility] [address] Performing Lab: [facility] [address] [facility] [address] WBC 6.0 4.5-11.0 RBC 4.29 4.23-5.66 HGB [...] 0.00 0-0 Dec 13, 2021 06:34 AM [facility] CBC PROFILE Sp ecimen Type: BLOOD No comment enter ed. Ordering Provid er: ISATU TODD Report Released Date/Time: Dec 10, 2021 07:22 AM Reporting Lab: [facility] [address] [facility] [address] Performing Lab: [facility] [address] [facility] [address] WBC 5.6 4.5-11.0 RBC 4.28 4.23-5.66 HGB [...] NRBC 0.00 0-0 Dec 13, 2021 [facility] P4 GLU,BUN,CREAT,LYTES,CA Speci men Type: PLASMA 06:34 AM [facility] Comment: Tests performed on EcoSynth (405) SN:[id number] Ordering Provid er: ISATU TODD Report Released Date/Time: Dec 11, 2021 07:42 AM Reporting Lab: [facility] [address] [facility] [address] Performing Lab: [facility] [address] [facility] [address] UREA NITROGEN 12 7-25 SODIUM 136 135-145 POTASSIUM 3.9 3.5-5.0 CHLORIDE 105 100-110 CARBON DIOXIDE 24 20-30 ANION GAP 7 4-16 GLUCOSE 102 H 65-100 CREATININE 0.66 0.5-1.5 CALCIUM 8.3 L 8.5-10.5 eGFR(CKD-EPI 2020) >90.0 >60 Dec 12, 2021 [facility] P4 GLU,BUN,CREAT,LYTES,CA Speci men Type: PLASMA 06:21 AM [facility] Comment: Tests performed on EcoSynth (405) SN:[id number] Ordering Provid er: ISATU TODD Report Released Date/Time: Dec 11, 2021 07:42 AM Reporting Lab: [facility] [address] [facility] [address] Performing Lab: [facility] [address] [facility] [address] UREA NITROGEN 11 7-25 SODIUM 139 135-145 POTASSIUM 4.1 3.5-5.0 CHLORIDE 107 100-110 CARBON DIOXIDE 24 20-30 ANION GAP 8 4-16 GLUCOSE 110 H 65-100 CREATININE 0.70 0.5-1.5 CALCIUM 8.3 L 8.5-10.5 eGFR(CKD-EPI 2020) >90.0 >60 Dec 12, 2021 06:21 AM [facility] CBC PROFILE Sp ecimen Type: BLOOD No comment enter ed. Ordering Provid er: ISATU TODD Report Released Date/Time: Dec 10, 2021 07:22 AM Reporting Lab: [facility] [address] [facility] [address] Performing Lab: [facility] [address] [facility] [address] WBC 5.5 4.5-11.0 RBC 4.37 4.23-5.66 HGB [...] 0.00 0-0 Dec 12, 2021 06:00 AM [facility] MAGNESIUM Sp ecimen Type: PLASMA Comment: Testin g Performed on EcoSynth (405) SN:[id number] Ordering Provid er: ISATU TODD Report Released Date/Time: Dec 12, 2021 08:24 AM Reporting Lab: [facility] [employer] [address] [facility] [address] Performing Lab: [employer] [place] [facility] [address] [facility] [address] MAGNESIUM 1.8 1.6-2.6 Dec 12, 2021 06:00 AM [facility]T [employer] PHOSPHORUS Sp ecimen Type: PLASMA Comment: Testin g Performed on EcoSynth (405) SN:[id number] Ordering Provid er: ISATU TODD Report Released Date/Time: Dec 12, 2021 08:24 AM Reporting Lab: [facility] [employer] [address] [facility] [address] Performing Lab: [place] [employer] [address] [facility] [address] PHOSPHORUS 3.1 2.5-5.0 Dec 11, 2021 06:15 AM [employer] [place] [employer]T [employer] ELECTROLYTES Sp ecimen Type: PLASMA Comment: Tests performed on EcoSynth (405) SN:[id number] Ordering Provid er: ISATU TODD Report Released Date/Time: Dec 10, 2021 07:22 AM Reporting Lab: [place] [employer] [address] [facility] [address] Performing Lab: [facility] [employer] [facility] [address] [facility] [address] SODIUM 137 135-145 POTASSIUM 4.3 3.5-5.0 CHLORIDE 108 100-110 CARBON DIOXIDE 20 20-30 ANION GAP 9 4-16 Dec 11, 2021 06:15 AM [place] [employer] [facility] CBC PROFILE Sp ecimen Type: BLOOD Comment: Result s checked Ordering Provid er: ISATU TODD Report Released Date/Time: Dec 10, 2021 07:22 AM Reporting Lab: [facility] O[facility] [address] [facility] [address] Performing Lab: [facility] OMEGAT [facility] [address] [facility] [address] WBC 5.8 4.5-11.0 RBC 4.37 4.23-5.66 HGB [...] 0.00 0-0 Dec 11, 2021 06:00 AM [facility] PHOSPHORUS Sp ecimen Type: PLASMA Comment: Tests performed on EcoSynth (682) SN:[id number] Results checked Ordering Provid er: ISATU TODD Report Released Date/Time: Dec 11, 2021 07:44 AM Reporting Lab: [facility] DU[facility] [address] [facility] [address] Performing Lab: [facility]ME[facility] [address] [facility] [address] PHOSPHORUS 3.0 2.5-5.0 Dec 10, 2021 08:05 AM [place] [facility] MAGNESIUM Sp ecimen Type: PLASMA Comment: [place] [id number] on Dec 10, 2021@08:31 Tests performed on EcoSynth (405) SN:[id number] Ordering Provid er: ISATU TODD Report Released Date/Time: Dec 10, 2021 07:22 AM Reporting Lab: [place] [facility] [address] [place] [facility] [place] [address] Performing Lab: [place] [facility] [address] [place] [facility] [place] [address] MAGNESIUM 1.7 1.6-2.6 Dec 10, 2021 08:05 AM [place] [facility] PHOSPHORUS Sp ecimen Type: PLASMA Comment: [place] [id number] on Dec 10, 2021@08:31 Tests performed on EcoSynth (405) SN:[id number] Ordering Provid er: ISATU TODD Report Released Date/Time: Dec 10, 2021 07:22 AM Reporting Lab: [place] [facility] [address] [place] [facility] [place] [address] Performing Lab: [place] [facility] [address] [place] [facility] [place] [address] PHOSPHORUS 1.8 L 2.5-5.0 Dec 10, 2021 08:05 AM [place] UREA NITROGEN Specimen Type: PLASMA [facility] Comment: [place] [id number] on Dec 10, 2021@08:31 Tests performed on EcoSynth (405) SN:[id number] Ordering Provid er: ISATU TODD Report Released Date/Time: Dec 10, 2021 07:22 AM Reporting Lab: [place] [facility] [address] [place] [facility] [place] [address] Performing Lab: [place] [facility] [address] [place] [facility] [place] [address] UREA NITROGEN 8 7-25 Dec 10, 2021 08:05 AM [place] [facility] GLUCOSE Sp ecimen Type: PLASMA Comment: [place] [id number] on Dec 10, 2021@08:31 Tests performed on EcoSynth (405) SN:[id number] Ordering Provid er: ISATU TODD Report Released Date/Time: Dec 10, 2021 07:22 AM Reporting Lab: [place] [facility] [address] [facility] [address] Performing Lab: [place] [facility] [address] [facility] [address] GLUCOSE 144 H 65-100 Dec 10, 2021 08:05 AM [place] [facility] ELECTROLYTES Sp ecimen Type: PLASMA Comment: [place] [id number] on Dec 10, 2021@08:31 Tests performed on EcoSynth (405) SN:[id number] Ordering Provid er: ISATU TODD Report Released Date/Time: Dec 10, 2021 07:22 AM Reporting Lab: [place] [facility] [address] [facility] [address] Performing Lab: [place] [facility] [address] [facility] [address] SODIUM 139 135-145 POTASSIUM 3.7 3.5-5.0 CHLORIDE 107 100-110 CARBON DIOXIDE 24 20-30 ANION GAP 8 4-16 Dec 10, 2021 08:05 [place] CREATININE WITH eGFR Specime n Type: PLASMA AM [facility] PANEL Comment: [place] [id number] on Dec 10, 2021@08:31 Tests performed on Pham Divergence (405) SN:[id number] Ordering Provid er: ISATU TODD Report Released Date/Time: Dec 10, 2021 07:22 AM Reporting Lab: [place] [facility] [address] [facility] [address] Performing Lab: [place] [facility] [address] [facility] [address] CREATININE 0.78 0.5-1.5 eGFR(CKD-EPI 2020) >90.0 >60 Dec 10, 2021 08:05 AM [place] [facility] CBC PROFILE Sp ecimen Type: BLOOD No comment enter ed. Ordering Provid er: ISATU TODD Report Released Date/Time: Dec 10, 2021 07:22 AM Reporting Lab: [place] [facility] [address] [facility] [address] Performing Lab: [place] [facility] [address] [facility] [address] WBC 7.0 4.5-11.0 RBC 4.54 4.23-5.66 HGB [...] NRBC 0.00 0-0 Dec 10, 2021 08:05 AM [facility] CALCIUM Sp ecimen Type: PLASMA Comment: [place] [id number] on Dec 10, 2021@08:31 Tests performed on EcoSynth (405) SN:[id number] Ordering Provid er: ISATU TODD Report Released Date/Time: Dec 10, 2021 07:22 AM Reporting Lab: [facility] [address] [facility] [address] Performing Lab: [facility] [address] [facility] [address] CALCIUM 8.3 L 8.5-10.5 Dec 09, 2021 06:46 AM [place] [employer] MAGNESIUM Sp ecimen Type: PLASMA Comment: Tests performed on EcoSynth (405) SN:[id number] Ordering Provid er: ISATU TODD Report Released Date/Time: Dec 08, 2021 10:23 AM Reporting Lab: [facility] [address] [facility] [address] Performing Lab: [facility] [address] [facility] [address] MAGNESIUM 1.6 1.6-2.6 Dec 09, 2021 [facility] P4 GLU,BUN,CREAT,LYTES,CA Speci men Type: PLASMA 06:46 AM [facility] Comment: Tests performed on EcoSynth (405) SN:[id number] Ordering Provid er: ISATU TODD Report Released Date/Time: Dec 08, 2021 05:00 PM Reporting Lab: [facility] [address] [facility] [address] Performing Lab: [facility] [address] [facility] [address] UREA NITROGEN 6 L 7-25 SODIUM 134 L 135-145 POTASSIUM 3.7 3.5-5.0 CHLORIDE 103 100-110 CARBON DIOXIDE 23 20-30 ANION GAP 8 4-16 GLUCOSE 112 H 65-100 CREATININE 0.70 0.5-1.5 CALCIUM 8.1 L 8.5-10.5 eGFR(CKD-EPI 2020) >90.0 >60 Dec 09, 2021 06:46 AM [facility] CBC PROFILE Sp ecimen Type: BLOOD No comment enter ed. Ordering Provid er: ISATU TODD Report Released Date/Time: Dec 08, 2021 05:00 PM Reporting Lab: [facility] [address] [facility] [address] Performing Lab: [facility] [address] [facility] [address] WBC 7.1 4.5-11.0 RBC 4.40 4.23-5.66 HGB [...] 0.00 0-0 Dec 08, 2021 06:39 AM [place] [facility] MAGNESIUM Sp ecimen Type: PLASMA Comment: Testin g Performed on EcoSynth (405) SN:[id number] Ordering Provid er: ISATU TODD Report Released Date/Time: Dec 07, 2021 10:32 AM Reporting Lab: [facility] [address] [facility] [address] Performing Lab: [facility] [address] [facility] [address] MAGNESIUM 1.5 L 1.6-2.6 Dec 08, 2021 [place] P4 GLU,BUN,CREAT,LYTES,CA Speci men Type: PLASMA 06:39 AM [facility] Comment: Testin g Performed on EcoSynth (405) SN:[id number] Ordering Provid er: ISATU TODD Report Released Date/Time: Dec 07, 2021 10:32 AM Reporting Lab: [facility] T [facility] [address] [facility] [address] Performing Lab: [facility] [address] [facility] [address] UREA NITROGEN 6 L 7-25 SODIUM 136 135-145 POTASSIUM 3.3 L 3.5-5.0 CHLORIDE 104 100-110 CARBON DIOXIDE 22 20-30 ANION GAP 10 4-16 GLUCOSE 133 H 65-100 CREATININE 0.76 0.5-1.5 CALCIUM 8.4 L 8.5-10.5 eGFR(CKD-EPI 2020) >90.0 >60 Dec 08, 2021 06:39 AM [place] [facility] CBC PROFILE Sp ecimen Type: BLOOD No comment enter ed. Ordering Provid er: ISATU TODD Report Released Date/Time: Dec 07, 2021 10:32 AM Reporting Lab: [facility] [address] [facility] [address] Performing Lab: [facility] [address] [facility] [address] WBC 8.4 4.5-11.0 RBC 4.75 4.23-5.66 HGB [...] ABSOLUTE NRBC 0.00 0-0 Dec 07, 2021 [facility] P4 GLU,BUN,CREAT,LYTES,CA Speci men Type: PLASMA 06:42 AM [facility] Comment: Tests performed on EcoSynth (405 SN:[id number] Ordering Provid er: PORFIRIO WALTERS Report Released Date/Time: Dec 06, 2021 06:57 PM Reporting Lab: [facility] [address] [facility] [address] Performing Lab: [facility] [address] [facility] [address] UREA NITROGEN 9 7-25 SODIUM 135 135-145 POTASSIUM 3.5 3.5-5.0 CHLORIDE 103 100-110 CARBON DIOXIDE 22 20-30 ANION GAP 10 4-16 GLUCOSE 92 65-100 CREATININE 0.73 0.5-1.5 CALCIUM 8.0 L 8.5-10.5 eGFR(CKD-EPI 2020) >90.0 >60 Dec 07, 2021 06:42 [place] LIVER PROFILE Specimen Typ e: PLASMA AM [facility] Comment: Tests performed on AdaptiveMobile Wireline Supervisor (405) SN:[id number] Ordering Provid er: PORFIRIO WALTERS Report Released Date/Time: Dec 06, 2021 06:57 PM Reporting Lab: [facility] [address] [facility] [address] Performing Lab: [facility] [address] [facility] [address] PROTEIN, TOTAL 5.7 L 6.0-8.5 ALBUMIN 2.4 L 3.2-5.0 BILIRUBIN, TOTAL 0.4 0.2-1.2 ALKALINE PHOSPHATASE 109 40-150 ALT(SGPT) 10 7-52 AST(SGOT) 15 5-34 FIB-4 SCORE 1.92 <2.67 Dec 07, 2021 06:[address] [facility] CBC PROFILE Specimen Type: BLOOD [facility] No comment enter ed. Ordering Provid er: PORFIRIO WALTERS Report Released Date/Time: Dec 06, 2021 06:57 PM Reporting Lab: [facility] [address] [facility] [address] Performing Lab: [facility] [address] [facility] [address] WBC 5.7 4.5-11.0 RBC 4.15 L 4.23-5.66 [...] VAM[facility]OC %) AUTOMATED Comment: Tests performed on EcoSynth (405) SN:[id number] Ordering Provid er: ISATU TODD Report Released Date/Time: Dec 07, 2021 10:28 AM Reporting Lab: [place] [facility] [address] [facility] [address] Performing Lab: [place] [facility] [address] [facility] [address] RETICULOCYTES (%) AUTOMATED 1.23 0. 6-2.0 RETICULOCYTES (ABS) AUTOMATED 0.052 0.030-0.090 Dec 06, 2021 09:45 [place] MRSA SURVL NARES Specimen Ty pe: NARES PM [facility] DNA No comment enter ed. Ordering Provid er: ALVARO VARGHESE Report Released Date/Time: Dec 07, 2021 02:20 AM Reporting Lab: [place] [facility] [address] [facility] [address] Performing Lab: [place] [facility] [address] [facility] [address] MRSA SURVL NARES DNA NEGATIVE NEGATIVE Dec 06, 2021 06:00 [place] URINALYSIS W/REFLEX TO Speci men Type: URINE PM [facility] CULTURE No comment enter ed. Ordering Provid er: JELANI SÁNCHEZ Report Released Date/Time: Dec 06, 2021 11:57 AM Reporting Lab: [place] [facility] [address] [facility] [address] Performing Lab: [place] [facility] [address] [facility] [address] URINE COLOR Arlin YELLOW SPECIFIC GRAVITY 1.029 [...] 21, R[place] VARIANT Comment: https://www.cdc.gov/coronavirus/2019-ncov/cases-updates/variant- surveillance/variant-info.html The [employer] SARS CoV 2 [employer] Assay-GX is a next-generation sequencing (NGS) assa 2021 [facility] SEQUENCING y that determine s the complete genome sequence of the SARS-CoV-2 virus. The assay contains variant-tolerant primers to broaden and improve the coverage for variant detection and increase the sensitivity 12:00 [facility] PNL(WH) of the panel to enable detection from lower viral titer samples. The assay is run on the [employer] Sequencer, which performs automated library preparation, sequencing, analysis, and reporting. PM The sequence an alysis includes determination of viral phylogenetic lineage by comparison to the reference strain Wu[place]-Hu-1, GenBank: [id number]. Sequence determination may not be possible owing [...] Dec 06, 2021 01:13 PM Reporting Lab: [facility] [address] [facility] [address] Performing Lab: [facility] [address] [facility] [address] SARS-CoV-2 CLADE() 22C (OMICRON) SARS-CoV-2 LINEAGE() BA.2.12.1 Dec 06, 2021 12:00 [facility] COVID-19 AG SCREEN Specimen Type: NASAL CAVITY PM [facility] PANEL BINAX(405) Comment: Testi ng Performed By: Mike Briscoe Ordering Provid er: JELANI SÁNCHEZ Report Released Date/Time: Dec 08, 2021 08:23 AM Reporting Lab: [facility] [address] [facility] [address] Performing Lab: [facility] [address] [facility] [address] COVID-19 AG SCRN(wrj BINAX) POSITIVE HH NE G Dec 06, 2021 12:00 PM [facility] LIVER PROFILE Sp ecimen Type: PLASMA Comment: Testin g Performed on Pham Wireline Supervisor (405) [id number] Ordering Provid er: JELANI SÁNCHEZ Report Released Date/Time: Dec 06, 2021 11:57 AM Reporting Lab: [facility] [address] [facility] [address] Performing Lab: [facility] [address] [facility] [address] PROTEIN, TOTAL 6.6 6.0-8.5 ALBUMIN 2.8 L 3.2-5.0 BILIRUBIN, TOTAL 0.6 0.2-1.2 ALKALINE PHOSPHATASE 134 40-150 ALT(SGPT) 13 7-52 AST(SGOT) 18 5-34 FIB-4 SCORE 1.94 <2.67 Dec 06, 2021 12:00 PM [facility] Sp ecimen Type: PLASMA Comment: Tests performed on Pham Wireline Supervisor (405) [id number] Ordering Provid er: JELANI SÁNCHEZ Report Released Date/Time: Dec 06, 2021 11:57 AM Reporting Lab: [facility] [address] [facility] [address] Performing Lab: [facility] [address] [facility] [address] TROPONIN II 0.03 0.00-0.29 Dec 06, 2021 [facility] P4 GLU,BUN,CREAT,LYTES,CA Speci men Type: PLASMA 12:00 PM [facility] Comment: Testin g Performed on Pham Wireline Supervisor (405) SN:[id number] Ordering Provid er: JELANI SÁNCHEZ Report Released Date/Time: Dec 06, 2021 11:57 AM Reporting Lab: [facility] [address] [facility] [address] Performing Lab: [facility] [address] [facility] [address] UREA NITROGEN 13 7-25 SODIUM 138 135-145 POTASSIUM 3.8 3.5-5.0 CHLORIDE 103 100-110 CARBON DIOXIDE 23 20-30 ANION GAP 12 4-16 GLUCOSE 105 H 65-100 CREATININE 0.90 0.5-1.5 CALCIUM 8.7 8.5-10.5 eGFR(CKD-EPI 2020) >90.0 >60 Dec 06, 2021 12:00 PM [facility] BNP(P) Sp ecimen Type: PLASMA Comment: Tests performed on Pham Wireline Supervisor (405) [id number] Ordering Provid er: JELANI SÁNCHEZ Report Released Date/Time: Dec 06, 2021 11:57 AM Reporting Lab: [facility] [address] [facility] [address] Performing Lab: [facility] [address] [facility] [address] BNP(P) 224.8 H 10-100 Dec 06, 2021 [facility] [place] COVID-19+FLU/RSV DIAGNOSTIC Spe cimen Type: NASOPHARYNX 12:00 PM [facility] PANEL(405) Comment: Tests performed on Tapjoyxpert (405) Critical results called to and read back by: ALESHIA WILKINSON RN 12/06/21 @ 1312 Ordering Provid er: JELANI SÁNCHEZ Report Released Date/Time: Dec 06, 2021 11:57 AM Reporting Lab: [facility] [address] [facility] [address] Performing Lab: [place] [facility] [address] [facility] [address] FLU A(PCR) NEGATIVE NEGATIVE FLU B(PCR) NEGATIVE NEGATIVE RSV(PCR) NEGATIVE NEGATIVE COVID-19(INR-nit-CZKVTVMOD) DETECTED HH NO T DETECTED Dec 06, 2021 12:00 [facility] Sp ecimen Type: BLOOD No comment enter ed. Ordering Provid er: JELANI SÁNCHEZ Report Released Date/Time: Dec 06, 2021 11:57 AM Reporting Lab: [facility] [address] [facility] [address] Performing Lab: [facility] [address] [facility] [address] WBC 7.2 4.5-11.0 RBC 4.86 4.23-5.66 HGB [...] 99 136/67 18 /min 98 % 0 WELCH 2021 11:35 /min mm[Hg] [facility] Nov 30, 0 WELCH 2021 08:00 [facility] Dec 15, 96.9 F 93 134/71 18 /min 97 % 0 WELCH 2021 05:01 /min mm[Hg] [facility] Social History: Smoking Status (Most current) and Tobacco Use (All prior to encounter date) This section includes the most current, and the historical, smoking and tobacco-related health factors from the [place] facility where the Encounter took place.Current Smoking Status This section includes the most current smoking, or tobacco-related health factor, from the MI facility where the Encounter took place. Date/Time Current Smoking Status Comment Facility Dec 06, 2021 11:40 AM QUIT TOBACCO USE > 7 YEARS AGO [facility] Tobacco Use History This section includes a history of the smoking, or tobacco- related health factors, that were collected on or before the date of the Encounter. The data comes from the MI facility where the Encounter took place. Date/Time Smoking Status/Tobacco Use Comment [facility] Apr 01, 2020 01:16 PM QUIT TOBACCO USE 1-7 YEARS AGO [facility] Mar 24, 2020 03:00 PM [...] 1-7 YEARS AGO [facility] May 01, 2016 07:26 PM QUIT TOBACCO USE IN PAST YEAR [facility] May 01, 2016 03:11 PM QUIT TOBACCO USE IN PAST YEAR [facility] May 01, 2016 11:19 AM QUIT TOBACCO USE IN PAST YEAR [facility] Mar 16, 2016 12:50 PM V1-PT DECLINES REF TO TOBACCO [facility] CESS PRGM Mar 16, 2016 12:50 PM V1-PT THINKING ABOUT QUIT [facility] DO[facility] TOBACCO USE Aug 12, 2015 08:48 AM CURRENT SMOKER [facility]Y Yates [facility] Radiology Reports: +/- 30 days of [...] the Encounter. The data comes from all MI treatment facilities. Date/Time Radiology Report Provider Source Dec 13, 2021 12:57 PM MRI ABDOMEN W/WO CONTRAST: MARYELLEN LONG [facility] LUCAS MEEK N [id number] -1950 [facility] Exm Date: DEC 13, 2021@12:57 Req Phys: ISATU TODD Loc: OP Unknown/0 12-15-2021@13:20 Img Loc: MRI IMAGING (OOS) Service: [facility]GENERAL MEDICINE (Case [id number] COMPLETE) MRI ABDOMEN W/WO CONTRAST (M RI Detailed) CPT:96406 Reason for Study: further characterization of a [...] new lyphadenopathy REQUESTING MD: Isatu Todd PAGER: [phone] PHONE: [phone] Weight: 232.2 lb [105.32 kg] (12/12/2021 05:00) [...] patient will need to arrange for a vibratory pile driver to take him/her home after the [...] 15, 2021 Date Verified: DEC 15, 2021 Parachute Panel Joiner E-Sig:/EMELY/MARYELLEN LONG Report: MRI ABDOMEN W/WO CONTRAST [...] MALIGNANCY Primary Interpreting Staff: Staff AMELIA THOMAS (Parachute Panel Joiner) / Dec 10, 2021 09:[address] ABDOMEN & PELVIS: RADIOLOGY,OUTSIDE [facility] [place] LUCAS MEEK N [id number] -1950 M SERVICE [facility] Ex Date: DEC 10, 2021@09:30 Req Phys: ISATU TODD E Josseline Loc: 1S MED/12-10@10:57 Img Loc: CT SCAN (OOS) Service: [facility] (Case [id number] COMPLETE) CT ABD & PELVIS WITHOUT CONT RAST (CT Detailed) CPT:60118 Reason for Study: 71 yo male with [...] RADIOLOGY [phone] to speak to the appropriate global position system technician. Report Status: Verified Date Reported: DEC 10, 2021 Date Verified: DEC 10, 2021 Parachute Panel Joiner E-Sig: Report: EXAM: CT abdomen and pelvis [...] ph nodes. READING PHYSICIAN: Ramone Munoz D.O. [phone] 12/10/2021 10:55 EDT [facility] National Teleradiology Program [phone] (For Medical Practitioner Use Only ) [address] [facility] [facility] [address] [place] [address] Attention Patients / Veterans: If you have ques tions or concerns about these test results, please contact your o rdering provider or primary care team. Primary Diagnostic Code: SIGNIFICANT ABNORMALIT Y, ATTN NEEDED Primary Interpreting Staff: RADIOLOGY,OUTSIDE SERVICE, Staff Physician / Dec 09, 2021 07:34 AM BASW (MODIFIED): JESSIE CHENEY [facility] [place] LUCAS MEEK N [id number] -1950 [facility] Ex Date: DEC 09, 2021@07:34 Req Phys: ISATU TODD Pat Loc: 1S MED/12-09@11:26 Img Loc: XRAY (OOS) Service: [facility] MEDICINE (Case [id number] COMPLETE) BASW (MODIFIED) (EUNICE Alex d) CPT:81319 Contrast Media : Barium Reason for Study: dysphagia ?esophageal spasm Clinical History: Report Status: Verified Date Reported: DEC 09, 2021 Date Verified: DEC 09, 2021 Parachute Panel Joiner E-Sig:/ES/JESSIE CHENEY Report: BASW (MODIFIED) , 12/09/2021 [...] REQUIRED Primary Interpreting Staff: JESSIE CHENEY, RADIOLOGIST (Parachute Panel Joiner) /TLC Dec 06, 2021 12:[address] CHEST (INCLUDES ADRENALS): JESSIE CHENEY LUCAS LARES [id number] -1950 M [facility] Exm Date: DEC 06, 2021@12:59 Req Phys: JELANI SÁNCHEZ Pat Loc: [facility] ED DAYS M 1RD (Req'g Loc) Img Loc: CT SCAN (OOS) Service: Unknown (Case [id number] COMPLETE) CT THORAX W/O CONT (CT Detai led) CPT:02399 Reason for Study: Opacification right chest Clinical History: No contrast allergy BUN: 13 (12/06/21 12:00) CREATI: 0.90 (12/06/21 12:00) eGFR 05/16/21 09:43 52 L Weight: 232.6 lb [105.51 kg] (12/06/2021 11:40) BODY MASS INDEX - NO HEIGHTS FOUND Pager number: [phone] STAT orders MUST be called t o RADIOLOGY [phone] to speak to the appropriate global position system technician. Indications - Other: Opacification right chest, covid positive, lung cancer histo Report Status: Verified Date Reported: DEC 06, 2021 Date Verified: DEC 06, 2021 Parachute Panel Joiner E-Sig:/ES/JESSIE CHENEY Report: CT THORAX W/O CONT [...] REQUIRED Primary Interpreting Staff: JESSIE CHENEY, RADIOLOGIST (Parachute Panel Joiner) Primary Interpreting Resident: PRINCE CHAMPION, Resident /BR Dec 06, 2021 11:58 AM CHEST SINGLE VIEW: JESSIE CHENEYLUCAS N [id number] -1950 M [facility] Exm Date: DEC 06, 2021@11:58 Req Phys: JELANI SÁNCHEZ Pat Loc: [facility] ED DAYS M 1RD (Req'g Loc) Img Loc: XRAY (OOS) Service: Unknown (Case [id number] COMPLETE) CHEST SINGLE VIEW (RAD Detai led) CPT:50678 Proc Modifiers : PORTABLE EXAM Reason for Study: SOB, home covid test positive Clinical History: Report Status: Verified Date Reported: DEC 06, 2021 Date Verified: DEC 06, 2021 Parachute Panel Joiner E-Sig:/ES/JESSIE CHENEY Report: Exam type: Chest x-ray [...] REQUIRED Primary Interpreting Staff: JESSIE CHENEY, RADIOLOGIST (Parachute Panel Joiner) /TLC Pathology Reports: +/- 30 days of [...] the Encounter. The data comes from all [place] treatment facilities. Date/Time Pathology Report Provider Source Jan 03, 2022 10:28 AM LR SURGICAL PATHOLOGY REPORT: STEFANY MILLER [place] LOCAL TITLE: LR SURGICAL PATHOLOGY REPORT [facility] STANDARD TITLE: PATHOLOGY REPORT DATE OF NOTE: JAN 03, 2022@10:28:01 ENTRY DATE: JAN 03, 2022@10:28:01 AUTHOR: NIURKA MILLER EXP COSIGNER: URGENCY: STATUS: COMPLETED $APHDR Reporting Lab: [facility] [CLIA# [id number]] [address] [place] [address] - - - - - - [...] automatically d ocumented from SURGERY package case #[id number] Field (#32) PRINCIPAL PRE-OP DIAGNOSIS, (#.72) OTHER [...] automatically d ocumented from SURGERY package case #[id number] Field (#34) PRINCIPAL POST-OP DIAG, (#.74) OTHER [...] Label: Lucas Meek Paperwork: Lucas Meek Cassette: [id number];..;KALYANI;.;405;[id number] Specimen is labeled: ES bx Received in formalin are several pieces of pale boyd and brown tissue, 1.2 x 0.7 cm in aggregate. Submitted entirely in 1 cassette [id number];..;KALYANI;.;405;[id number] SAW 12/15/2021 Microscopic exam: *+* MODIFIED REPORT *+* (Last modified: JAN 03, 2022@09:30:20 typed by NIURKA WADDELL) DIAGNOSIS: A. 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 Kendell long. TIARA Coombs was notified on 12/21/21. Modified on 01/03/22 to include report from [facility] stating that tumor is NEGATIVE for her2/ matheus amplification. The attending pathologist who signature mansoor ears on this report has reviewed all diagnostic slides and has edited t he gross and/or microscopic portion of this report in rendering the final pathologic diagnosis. [address] [address] CPT: 16427 /emely/ NIURKA Yeung MD Signed Jan 03, 2022@10:28 Performing Laboratory: Surgical Pathology Report Performed By: [facility] [CLIA# [id number]] [address] [place] [address] $FTR - - - - - [...] - - LUCAS MEEK STANDARD FORM 515 ID:[id number] SEX:M :1950 AGE: 71 LOC: SDM END PCP: Isatu Todd /emely/ NIURKA MILLER Staff Signed: 01/03/2022 10:28 Dec 21, 2021 11:46 AM LR SURGICAL PATHOLOGY REPORT: STEFANY MILLER [facility] [place] LOCAL TITLE: LR SURGICAL PATHOLOGY REPORT [facility] STANDARD TITLE: PATHOLOGY REPORT DATE OF NOTE: DEC 21, 2021@11:46:59 ENTRY DATE: DEC 21, 2021@11:46:59 AUTHOR: NIURKA MILLER EXP COSIGNER: URGENCY: STATUS: COMPLETED $APHDR Reporting Lab: [facility] [CLIA# [id number]] [address] [place] [facility] [place] [address] - - - - - - [...] automatically d ocumented from SURGERY package case #[id number] Field (#32) PRINCIPAL PRE-OP DIAGNOSIS, (#.72) OTHER [...] automatically d ocumented from SURGERY package case #[id number] Field (#34) PRINCIPAL POST-OP DIAG, (#.74) OTHER [...] Label: Lucas Meek Paperwork: Lucas Meek Cassette: [id number];..;KALYANI;.;405;[id number] Specimen is labeled: ES bx Received in formalin are several pieces of pale boyd and brown tissue, 1.2 x 0.7 cm in aggregate. Submitted entirely in 1 cassette [id number];..;KALYANI;.;405;[id number] SAW 12/15/2021 Microscopic exam: DIAGNOSIS: A. 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 Kendell longTIARA Barba was notified on 12/21/21. The attending pathologist who signature mansoor ears on this report has reviewed all diagnostic slides and has edited t he gross and/or microscopic portion of this report in rendering the final pathologic diagnosis. [address] [address] CPT: 74892 /emely/ NIURKA Yeung MD Signed Dec 21, 2021@11:46 Performing Laboratory: Surgical Pathology Report Performed By: [facility] [CLIA# [id number]] [address] [place] [address] $FTR - - - - - [...] - - LUCAS MEEK STANDARD FORM 515 ID:[id number] SEX:M :1950 AGE: 71 LOC: SDM END PCP: Isatu Todd /emely/ NIURKA Yeung MD Signed: 12/21/2021 11:46 Dec 06, 2021 03:30 PM LR MICROBIOLOGY RE[facility] Reporting Lab: [facility] [CLIA# [id number]] [address] [place] [address] Accession [UID]: [id number] [[id number]] Receiv ed: Dec 06, 2021@16:14 Collection sample: BLOOD CUL T BOTTLE(NIRMAL/AERO)Collection date: Dec 06, 2021 15:30 Site/Specimen: BLOOD Provider: JELANI SÁNCHEZ Comment on specimen: LAC Test(s) ordered: BLOOD CULTURE ANAEROBI C....... completed: Dec 12, 2021 06:18 * BACTERIOLOGY FINAL REPORT => Dec 12, 2021 06:1 8 TECH CODE: [id number] Bacteriology Remark(s): NO GROWTH IN 5 DAYS =--=--=--=--=--=--=--=--=--=--=--=--=--= --=--=--=--=--=--=--=--=--=--=--=--=-- Performing Laboratory: Bacteriology Report Performed By: [facility] [CLIA# [id number]] [address] [place] [address] Dec 06, 2021 03:30 PM LR MICROBIOLOGY REPORT: [facility] Reporting Lab: [facility] [CLIA# [id number]] [address] [place] [address] Accession [UID]: [id number] [[id number]] Receiv ed: Dec 06, 2021@16:14 Collection sample: BLOOD CUL T BOTTLE(NIRMAL/AERO)Collection date: Dec 06, 2021 15:30 Site/Specimen: BLOOD Provider: JELANI SÁNCHEZ Comment on specimen: LAC Test(s) ordered: BLOOD CULTURE AEROBIC. ........ completed: Dec 12, 2021 06:17 * BACTERIOLOGY FINAL REPORT => Dec 12, 2021 06:1 7 TECH CODE: [id number] Bacteriology Remark(s): NO GROWTH IN 5 DAYS =--=--=--=--=--=--=--=--=--=--=--=--=--= --=--=--=--=--=--=--=--=--=--=--=--=-- Performing Laboratory: Bacteriology Report Performed By: [facility] [CLIA# [id number]] [address] [place] [address]
--- OUTSIDE RECORDS SUMMARY | 2022-01-19 08:06 | XMS_ITS ---
DAILY HOSPITALIZATION DATA [facility] Encounter Summary Created on:December 15, 2021 Patient:LUCAS MEEK Sex:Male :1950 Author Organization [facility] Address [address] [place] [id number] Support Name Relationship Address Phone YUSRA MEEK Unavailable [address] [place] [address] YUSRA MEEK Unavailable [address] [place] [address] CLAY MOSLEY Unavailable Unavailable SJ SANTACRUZ Unavailable [...] MEDICARE MEDICARE PART Jun 18, PART A [id number] DO KALYANI PATIENT (WNR) (M) A 2016 13A 1 UGLAS MEDICARE MEDICARE PART Jun 18, PART A [id number] DO KALYANI PATIENT (WNR) (M) A 2017 VH81 2 LAS MEDICARE MEDICARE PART Jun 18, PART B [id number] DO KALYANI PATIENT (WNR) (M) B 2016 13A 1 UGLAS MEDICARE MEDICARE PART Jun 18, PART B [id number] DO KALYANI PATIENT (WNR) (M) B 2017 VH81 2 UGLAS UNITED MEDICARE MCR(Jun 18 [id number] Luz MEEK PATIENT HEALTHCARE ADVANTAGE NR) 2021 37 0 [facility] (WNR) Selected Encounter This section includes the information on record at [place] for the Encounter. Date/Time Encounter Type Encounter Description Reason Provider Source Dec 15, 2021 10:39 Inpatient Visit DAILY HOSPITALIZATION DATA AM [facility] Encounter Template Text not used by [place] [...] AM AMBUL[place]ORY - NONE [place] [facility] Jan 06, 2022 02:00 PM [place] [facility] Jan 10, 2022 11:30 AM AMBULATORY - MEDICINE [facility] Jan 24, 2022 08:00 AM [place] [facility] Feb 21, 2022 10:00 AM AMBULATORY - SURG[place] [facility] Mar 21, 2022 10:30 AM [...] The data comes from all [place] treatment [facility]. Test Date/Time Test Type Test Details Facility Name October 31, 2021 07:37 AM Consult Order COMMUNITY CARE-EGD [facility] Cons [facility]on [facility] November 15, 2021 10:37 AM Consult Order [facility] CARE-PODIATRY Cons [place] [facility] Dec 06, 2021 12:52 PM [place]acy [place] Infusion Order [facility] Dec 06, 2021 03:24 PM [place]acy [place] Order [facility] Dec 06, 2021 03:40 PM [place]acy [place] Order [facility] Dec 15, 2021 08:41 AM Consult Order SPEECH PATHOLOGY [place] OUTPAT[place] Cons [facility] Ne[facility] [facility] Jan 15, 2022 10:08 PM Consult Order [facility] CARE-PALLIATIVE CARE Cons [place] [facility] Lab Results: +/- 30 days of [...] Interpretation Reference Range Comment Dec 15, 2021 [place] P4 GLU,BUN,CREAT,LYTES,CA Speci men Type: PLASMA 06:43 AM [facility] Comment: Tests performed on Kaleidoscope (405) SN:[id number] Ordering Provid er: ISATU TODD Report Released Date/Time: Dec 11, 2021 07:42 AM Reporting Lab: [facility] [address] [facility] [address] Performing Lab: [facility] [address] [facility] [address] UREA NITROGEN 9 7-25 SODIUM 137 135-145 POTASSIUM 3.8 3.5-5.0 CHLORIDE 105 100-110 CARBON DIOXIDE 26 20-30 ANION GAP 6 4-16 GLUCOSE 102 H 65-100 CREATININE 0.64 0.5-1.5 CALCIUM 8.1 L 8.5-10.5 eGFR(CKD-EPI 2020) >90.0 >60 Dec 15, 2021 06:43 AM [facility] CBC PROFILE Sp ecimen Type: BLOOD No comment enter ed. Ordering Provid er: ISATU TODD Report Released Date/Time: Dec 10, 2021 07:22 AM Reporting Lab: [facility] [address] [facility] [address] Performing Lab: [facility] [address] [facility] [address] WBC 5.7 4.5-11.0 RBC 4.22 L 4.23-5.66 [...] ABSOLUTE NRBC 0.00 0-0 Dec 14, 2021 [facility] CYTOGENETIC Specimen Type: ESOPHAGUS 02:59 PM [facility] Comment: ~For T est: CYTOGENETIC FISH([facility]) ~FISH HER 2 NUE, FFPE See full report in Promoboxx Image display viewer/tab#LAB-Reference Ordering Provid er: NIURKA MILLER Report Released Date/Time: Dec 21, 2021 12:11 PM Reporting Lab: [facility] [address] [facility] [address] Performing Lab: [facility] CYTOGENETIC FISH([facility]) comment Dec 14, 2021 [facility] P4 GLU,BUN,CREAT,LYTES,CA Speci men Type: PLASMA 06:27 AM [facility] Comment: Tests performed on Kaleidoscope (405) SN:[id number] Ordering Provid er: ISATU TODD Report Released Date/Time: Dec 11, 2021 07:42 AM Reporting Lab: [facility] [address] [facility] [address] Performing Lab: [facility] [address] [facility] [address] UREA NITROGEN 10 7-25 SODIUM 137 135-145 POTASSIUM 4.0 3.5-5.0 CHLORIDE 104 100-110 CARBON DIOXIDE 25 20-30 ANION GAP 8 4-16 GLUCOSE 99 65-100 CREATININE 0.67 0.5-1.5 CALCIUM 8.2 L 8.5-10.5 eGFR(CKD-EPI 2020) >90.0 >60 Dec 14, 2021 06:27 AM [facility] CBC PROFILE Sp ecimen Type: BLOOD No comment enter ed. Ordering Provid er: ISATU TODD Report Released Date/Time: Dec 10, 2021 07:22 AM Reporting Lab: [facility] [address] [facility] [address] Performing Lab: [facility] [address] [facility] [address] WBC 6.0 4.5-11.0 RBC 4.29 4.23-5.66 HGB [...] ABSOLUTE NRBC 0.00 0-0 Dec 13, 2021 [facility] P4 GLU,BUN,CREAT,LYTES,CA Speci men Type: PLASMA 06:34 AM [facility] Comment: Tests performed on Kaleidoscope (405) SN:[id number] Ordering Provid er: ISATU TODD Report Released Date/Time: Dec 11, 2021 07:42 AM Reporting Lab: [facility] [address] [facility] [address] Performing Lab: [facility] [address] [facility] [address] UREA NITROGEN 12 7-25 SODIUM 136 135-145 POTASSIUM 3.9 3.5-5.0 CHLORIDE 105 100-110 CARBON DIOXIDE 24 20-30 ANION GAP 7 4-16 GLUCOSE 102 H 65-100 CREATININE 0.66 0.5-1.5 CALCIUM 8.3 L 8.5-10.5 eGFR(CKD-EPI 2020) >90.0 >60 Dec 13, 2021 06:34 AM [facility] CBC PROFILE Sp ecimen Type: BLOOD No comment enter ed. Ordering Provid er: ISATU TODD Report Released Date/Time: Dec 10, 2021 07:22 AM Reporting Lab: [facility] [address] [facility] [address] Performing Lab: [facility] [address] [facility] [address] WBC 5.6 4.5-11.0 RBC 4.28 4.23-5.66 HGB [...] ABSOLUTE NRBC 0.00 0-0 Dec 12, 2021 [facility] P4 GLU,BUN,CREAT,LYTES,CA Speci men Type: PLASMA 06:21 AM [facility] Comment: Tests performed on Kaleidoscope (405) SN:[id number] Ordering Provid er: ISATU TODD Report Released Date/Time: Dec 11, 2021 07:42 AM Reporting Lab: [facility] [address] [facility] [address] Performing [facility]: [facility] [address] [facility] [address] UREA NITROGEN 11 7-25 SODIUM 139 135-145 POTASSIUM 4.1 3.5-5.0 CHLORIDE 107 100-110 CARBON DIOXIDE 24 20-30 ANION GAP 8 4-16 GLUCOSE 110 H 65-100 CREATININE 0.70 0.5-1.5 CALCIUM 8.3 L 8.5-10.5 eGFR(CKD-EPI 2020) >90.0 >60 Dec 12, 2021 06:21 AM [facility] CBC PROFILE Sp ecimen Type: BLOOD No comment enter ed. Ordering Provid er: ISATU TODD Report Released Date/Time: Dec 10, 2021 07:22 AM Reporting Lab: [facility] [address] [facility] [address] Performing Lab: [facility] [address] [facility] [address] WBC 5.5 4.5-11.0 RBC 4.37 4.23-5.66 HGB [...] 0.00 0-0 Dec 12, 2021 06:00 AM [facility] MAGNESIUM Sp ecimen Type: PLASMA Comment: Testin g Performed on Kaleidoscope (405) SN:[id number] Ordering Provid er: ISATU TODD Report Released Date/Time: Dec 12, 2021 08:24 AM Reporting Lab: [facility] [address] [facility] [address] Performing Lab: [employer] [place] [facility] [address] [facility] [address] MAGNESIUM 1.8 1.6-2.6 Dec 12, 2021 06:00 AM [facility] PHOSPHORUS Sp ecimen Type: PLASMA Comment: Testin g Performed on Kaleidoscope (405) SN:[id number] Ordering Provid er: ISATU TODD Report Released Date/Time: Dec 12, 2021 08:24 AM Reporting Lab: [facility] [employer] [address] [facility] [address] Performing Lab: [employer] [facility] [address] [facility] [address] PHOSPHORUS 3.1 2.5-5.0 Dec 11, 2021 06:15 AM [employer] [place] [employer] ELECTROLYTES Sp ecimen Type: PLASMA Comment: Tests performed on Kaleidoscope (405) SN:[id number] Ordering Provid er: ISATU TODD Report Released Date/Time: Dec 10, 2021 07:22 AM Reporting Lab: [facility] [employer] [address] [facility] [address] Performing Lab: [facility] [employer] [facility] [address] [facility] [address] SODIUM 137 135-145 POTASSIUM 4.3 3.5-5.0 CHLORIDE 108 100-110 CARBON DIOXIDE 20 20-30 ANION GAP 9 4-16 Dec 11, 2021 06:15 AM [facility] [employer] [facility] CBC PROFILE Sp ecimen Type: BLOOD Comment: Result s checked Ordering Provid er: ISATU TODD Report Released Date/Time: Dec 10, 2021 07:22 AM Reporting Lab: [facility] [address] [facility] [address] Performing Lab: [facility] [facility] [address] [facility] [address] WBC 5.8 4.5-11.0 RBC 4.37 4.23-5.66 HGB [...] 0.00 0-0 Dec 11, 2021 06:00 AM [facility] PHOSPHORUS Sp ecimen Type: PLASMA Comment: Tests performed on Kaleidoscope (301) SN:[id number] Results checked Ordering Provid er: ISATU TODD Report Released Date/Time: Dec 11, 2021 07:44 AM Reporting Lab: [facility] [address] [facility] [address] Performing Lab: [facility] [address] [facility] [address] PHOSPHORUS 3.0 2.5-5.0 Dec 10, 2021 08:05 AM [place] [facility] MAGNESIUM Sp ecimen Type: PLASMA Comment: [place] [id number] on Dec 10, 2021@08:31 Tests performed on Kaleidoscope (405) SN:[id number] Ordering Provid er: ISATU TODD Report Released Date/Time: Dec 10, 2021 07:22 AM Reporting Lab: [place] [facility] [address] [place] [facility] [place] [address] Performing Lab: [place] [facility] [address] [place] [facility] [place] [address] MAGNESIUM 1.7 1.6-2.6 Dec 10, 2021 08:05 AM [place] [facility] PHOSPHORUS Sp ecimen Type: PLASMA Comment: [place] [id number] on Dec 10, 2021@08:31 Tests performed on Kaleidoscope (405) SN:[id number] Ordering Provid er: ISATU TODD Report Released Date/Time: Dec 10, 2021 07:22 AM Reporting Lab: [place] [facility] [address] [place] [facility] [place] [address] Performing Lab: [place] [facility] [address] [place] [facility] [place] [address] PHOSPHORUS 1.8 L 2.5-5.0 Dec 10, 2021 08:05 AM [place] UREA NITROGEN Specimen Type: PLASMA [facility] Comment: [place] [id number] on Dec 10, 2021@08:31 Tests performed on Kaleidoscope (405) SN:[id number] Ordering Provid er: ISATU TODD Report Released Date/Time: Dec 10, 2021 07:22 AM Reporting Lab: [place] [facility] [address] [place] [facility] [place] [address] Performing Lab: [place] [facility] [address] [place] [facility] [place] [address] UREA NITROGEN 8 7-25 Dec 10, 2021 08:05 AM [place] [facility] GLUCOSE Sp ecimen Type: PLASMA Comment: [place] [id number] on Dec 10, 2021@08:31 Tests performed on Kaleidoscope (405) SN:[id number] Ordering Provid er: ISATU TODD Report Released Date/Time: Dec 10, 2021 07:22 AM Reporting Lab: [place] [facility] [address] [facility] [address] Performing Lab: [place] [facility] [address] [place] [facility] [place] [address] GLUCOSE 144 H 65-100 Dec 10, 2021 08:05 [place] CREATININE WITH eGFR Specime n Type: PLASMA AM [facility] PANEL Comment: [place] [id number] on Dec 10, 2021@08:31 Tests performed on [employer] (405) SN:[id number] Ordering Provid er: ISATU TODD Report Released Date/Time: Dec 10, 2021 07:22 AM Reporting Lab: [place] [facility] [address] [facility] [address] Performing Lab: [place] [facility] [address] [facility] [address] CREATININE 0.78 0.5-1.5 eGFR(CKD-EPI 2020) >90.0 >60 Dec 10, 2021 08:05 AM [place] [facility] ELECTROLYTES Sp ecimen Type: PLASMA Comment: [place] [id number] on Dec 10, 2021@08:31 Tests performed on [employer] (405) SN:[id number] Ordering Provid er: ISATU TODD Report Released Date/Time: Dec 10, 2021 07:22 AM Reporting Lab: [place] [facility] [address] [facility] [address] Performing Lab: [place] [facility] [address] [facility] [address] SODIUM 139 135-145 POTASSIUM 3.7 3.5-5.0 CHLORIDE 107 100-110 CARBON DIOXIDE 24 20-30 ANION GAP 8 4-16 Dec 10, 2021 08:05 AM [place] [facility] CALCIUM Sp ecimen Type: PLASMA Comment: [place] [id number] on Dec 10, 2021@08:31 Tests performed on [employer] (405) SN:[id number] Ordering Provid er: ISATU TODD Report Released Date/Time: Dec 10, 2021 07:22 AM Reporting Lab: [place] [facility] [address] [facility] [address] Performing Lab: [place] [facility] [address] [facility] [address] CALCIUM 8.3 L 8.5-10.5 Dec 10, 2021 08:05 AM [place] [facility] [facility] CBC PROFILE Sp ecimen Type: BLOOD No comment enter ed. Ordering Provid er: ISATU TODD Report Released Date/Time: Dec 10, 2021 07:22 AM Reporting Lab: [facility] [facility] [address] [facility] [address] Performing Lab: [facility] [address] [facility] [address] WBC 7.0 4.5-11.0 RBC 4.54 4.23-5.66 HGB [...] 0.00 0-0 Dec 09, 2021 06:46 AM [facility] MAGNESIUM Sp ecimen Type: PLASMA Comment: Tests performed on Kaleidoscope (343) SN:[id number] Ordering Provid er: ISATU TODD Report Released Date/Time: Dec 08, 2021 10:23 AM Reporting Lab: [place] [facility]MEGAT [facility] [address] [facility] [address] Performing Lab: [facility] [address] [facility] [address] MAGNESIUM 1.6 1.6-2.6 Dec 09, 2021 [facility] P4 GLU,BUN,CREAT,LYTES,CA Speci men Type: PLASMA 06:46 AM [facility] Comment: Tests performed on Kaleidoscope (405) SN:[id number] Ordering Provid er: ISATU TODD Report Released Date/Time: Dec 08, 2021 05:00 PM Reporting Lab: [facility] [address] [facility] [address] Performing Lab: [facility] [address] [facility] [address] UREA NITROGEN 6 L 7-25 SODIUM 134 L 135-145 POTASSIUM 3.7 3.5-5.0 CHLORIDE 103 100-110 CARBON DIOXIDE 23 20-30 ANION GAP 8 4-16 GLUCOSE 112 H 65-100 CREATININE 0.70 0.5-1.5 CALCIUM 8.1 L 8.5-10.5 eGFR(CKD-EPI 2020) >90.0 >60 Dec 09, 2021 06:46 AM [facility] CBC PROFILE Sp ecimen Type: BLOOD No comment enter ed. Ordering Provid er: ISATU TODD Report Released Date/Time: Dec 08, 2021 05:00 PM Reporting Lab: [facility] [address] [facility] [address] Performing Lab: [facility] [address] [facility] [address] WBC 7.1 4.5-11.0 RBC 4.40 4.23-5.66 HGB [...] 0.00 0-0 Dec 08, 2021 06:39 AM [employer] T [facility] MAGNESIUM Sp ecimen Type: PLASMA Comment: Testin g Performed on Kaleidoscope (405) SN:[id number] Ordering Provid er: ISATU TODD Report Released Date/Time: Dec 07, 2021 10:32 AM Reporting Lab: [facility] [address] [facility] [address] Per[facility]: [facility] [address] [facility] [address] MAGNESIUM 1.5 L 1.6-2.6 Dec 08, 2021 [place] [employer] T P4 GLU,BUN,CREAT,LYTES,CA Speci men Type: PLASMA 06:39 AM [facility] Comment: Testin g Performed on Kaleidoscope (405) SN:[id number] Ordering Provid er: ISATU TODD Report Released Date/Time: Dec 07, 2021 10:32 AM Reporting Lab: [employer] T [facility] [address] [facility] [address] Performing Lab: [facility] [address] [facility] [address] UREA NITROGEN 6 L 7-25 SODIUM 136 135-145 POTASSIUM 3.3 L 3.5-5.0 CHLORIDE 104 100-110 CARBON DIOXIDE 22 20-30 ANION GAP 10 4-16 GLUCOSE 133 H 65-100 CREATININE 0.76 0.5-1.5 CALCIUM 8.4 L 8.5-10.5 eGFR(CKD-EPI 2020) >90.0 >60 Dec 08, 2021 06:39 AM [place] [employer] T [facility] CBC PROFILE Sp ecimen Type: BLOOD No comment enter ed. Ordering Provid er: ISATU TODD Report Released Date/Time: Dec 07, 2021 10:32 AM Reporting Lab: [facility] [address] [facility] [address] Performing Lab: [facility] [address] [facility] [address] WBC 8.4 4.5-11.0 RBC 4.75 4.23-5.66 HGB [...] ABSOLUTE NRBC 0.00 0-0 Dec 07, 2021 [facility] P4 GLU,BUN,CREAT,LYTES,CA Speci men Type: PLASMA 06:42 AM [facility] Comment: Tests performed on Kaleidoscope (405 SN:[id number] Ordering Provid er: PORFIRIO WALTERS Report Released Date/Time: Dec 06, 2021 06:57 PM Reporting Lab: [facility] [address] [facility] [address] Performing Lab: [facility] [address] [facility] [address] UREA NITROGEN 9 7-25 SODIUM 135 135-145 POTASSIUM 3.5 3.5-5.0 CHLORIDE 103 100-110 CARBON DIOXIDE 22 20-30 ANION GAP 10 4-16 GLUCOSE 92 65-100 CREATININE 0.73 0.5-1.5 CALCIUM 8.0 L 8.5-10.5 eGFR(CKD-EPI 2020) >90.0 >60 Dec 07, 2021 06:42 [place] LIVER PROFILE Specimen Typ e: PLASMA AM [facility] Comment: Tests performed on [employer] (405) SN:[id number] Ordering Provid er: PORFIRIO WALTERS Report Released Date/Time: Dec 06, 2021 06:57 PM Reporting Lab: [facility] [address] [facility] [address] Performing Lab: [facility] [address] [facility] [address] PROTEIN, TOTAL 5.7 L 6.0-8.5 ALBUMIN 2.4 L 3.2-5.0 BILIRUBIN, TOTAL 0.4 0.2-1.2 ALKALINE PHOSPHATASE 109 40-150 ALT(SGPT) 10 7-52 AST(SGOT) 15 5-34 FIB-4 SCORE 1.92 <2.67 Dec 07, 2021 06:42 AM [facility] CBC PROFILE Specimen Type: BLOOD [facility] No comment enter ed. Ordering Provid er: PORFIRIO WALTERS Report Released Date/Time: Dec 06, 2021 06:57 PM Reporting Lab: [facility] [address] [facility] [address] Per[facility]: [facility] [address] [facility] [address] WBC 5.7 4.5-11.0 RBC 4.15 L 4.23-5.66 [...] [facility]AM[facility] %) AUTOMATED Comment: Tests performed on Kaleidoscope (405) SN:[id number] Ordering Provid er: ISATU TODD Report Released Date/Time: Dec 07, 2021 10:28 AM Reporting Lab: [place] [facility] [address] [facility] [address] Performing Lab: [place] [facility] [address] [facility] [address] RETICULOCYTES (%) AUTOMATED 1.23 0. 6-2.0 RETICULOCYTES (ABS) AUTOMATED 0.052 0.030-0.090 Dec 06, 2021 09:45 [place] MRSA SURVL NARES Specimen Ty pe: NARES PM [facility] DNA No comment enter ed. Ordering Provid er: ALVARO VARGHESE Report Released Date/Time: Dec 07, 2021 02:20 AM Reporting Lab: [place] [facility] [address] [facility] [address] Performing Lab: [place] [facility] [address] [facility] [address] MRSA SURVL NARES DNA NEGATIVE NEGATIVE Dec 06, 2021 06:00 [place] URINALYSIS W/REFLEX TO Speci men Type: URINE PM [facility] CULTURE No comment enter ed. Ordering Provid er: JELANI SÁNCHEZ Report Released Date/Time: Dec 06, 2021 11:57 AM Reporting Lab: [place] [facility] [address] [facility] [address] Performing Lab: [place] [facility] [address] [facility] [address] URINE COLOR Arlin YELLOW SPECIFIC GRAVITY 1.029 [...] 21, R[place] VARIANT Comment: https://www.cdc.gov/coronavirus/2019-ncov/cases-updates/variant- surveillance/variant-info.html The [employer] SARS CoV 2 [employer] Assay-GX is a next-generation sequencing (NGS) assa 2021 [facility] SEQUENCING y that determine s the complete genome sequence of the SARS-CoV-2 virus. The assay contains variant-tolerant primers to broaden and improve the coverage for variant detection and increase the sensitivity 12:00 [facility] PNL(WH) of the panel to enable detection from lower viral titer samples. The assay is run on the [employer] Sequencer, which performs automated library preparation, sequencing, analysis, and reporting. PM The sequence an alysis includes determination of viral phylogenetic lineage by comparison to the reference strain Wuhan-Hu-1, GenBank: [id number]. Sequence determination may not be possible owing [...] and its performance characteristics determined by the [facility] Molecular Diagnostics Laboratory, which is certified under the Clinical Laboratory Improveme nt Amendments (C MARCO) as qualified to perform high complexity clinical laboratory testing. This test is validated for clinical use at [facility] and should not be regarded as investigational or for research. The FDA does not require this test to go through premarket FDA review, and therefore it has not been cleared or approved by the FDA. This report was reviewed and approved by the on-service pathologist. Ordering Provid er: JELANI SÁNCHEZ Report Released Date/Time: Dec 06, 2021 01:13 PM Reporting Lab: [facility] [address] [facility] [address] Performing Lab: [facility] [address] [facility] [address] SARS-CoV-2 CLADE() 22C (OMICRON) SARS-CoV-2 LINEAGE() BA.2.12.1 Dec 06, 2021 12:00 [facility] COVID-19 AG SCREEN Specimen Type: NASAL CAVITY [facility] PANEL BINAX(405) Comment: Testi ng Performed By: Mike Briscoe Ordering Provid er: JELANI SÁNCHEZ Report Released Date/Time: Dec 08, 2021 08:23 AM Reporting Lab: [facility] [address] [facility] [address] Performing [facility]: [facility] [address] [facility] [address] COVID-19 AG SCRN(wrj BINAX) POSITIVE HH NE G Dec 06, 2021 12:00 PM [facility] TROPONIN II Sp ecimen Type: PLASMA Comment: Tests performed on [employer] (405) [id number] Ordering Provid er: JELANI SÁNCHEZ Report Released Date/Time: Dec 06, 2021 11:57 AM Reporting Lab: [facility] [address] [place] [facility] [place] [address] Performing Lab: [facility] [address] [facility] [address] TROPONIN II 0.03 0.00-0.29 Dec 06, 2021 12:00 PM [facility] LIVER PROFILE Sp ecimen Type: PLASMA Comment: Testin g Performed on [employer] (405) [id number] Ordering Provid er: JELANI SÁNCHEZ Report Released Date/Time: Dec 06, 2021 11:57 AM Reporting [facility]: [facility] [address] [facility] [address] Performing Lab[facility] [address] [facility] [address] PROTEIN, TOTAL 6.6 6.0-8.5 ALBUMIN 2.8 L 3.2-5.0 BILIRUBIN, TOTAL 0.6 0.2-1.2 ALKALINE PHOSPHATASE 134 40-150 ALT(SGPT) 13 7-52 AST(SGOT) 18 5-34 FIB-4 SCORE 1.94 <2.67 Dec 06, 2021 [facility] [place] P4 GLU,BUN,CREAT,LYTES,CA Speci men Type: PLASMA 12:00 PM [facility] Comment: Testin g Performed on [employer] (405) SN:[id number] Ordering Provid er: JELANI SÁNCHEZ Report Released Date/Time: Dec 06, 2021 11:57 AM Reporting Lab: [facility] [address] [facility] [address] Performing Lab: [facility] [address] [facility] [address] UREA NITROGEN 13 7-25 SODIUM 138 135-145 POTASSIUM 3.8 3.5-5.0 CHLORIDE 103 100-110 CARBON DIOXIDE 23 20-30 ANION GAP 12 4-16 GLUCOSE 105 H 65-100 CREATININE 0.90 0.5-1.5 CALCIUM 8.7 8.5-10.5 eGFR(CKD-EPI 2020) >90.0 >60 Dec 06, 2021 12:00 PM [facility] BNP(P) Sp ecimen Type: PLASMA Comment: Tests performed on [employer] (405) SN:[id number] Ordering Provid er: JELANI SÁNCHEZ Report Released Date/Time: Dec 06, 2021 11:57 AM Reporting Lab: [facility] [address] [facility] [address] Performing Lab: [facility] [address] [facility] [address] BNP(P) 224.8 H 10-100 Dec 06, 2021 [facility] [place] COVID-19+FLU/RSV DIAGNOSTIC Spe cimen Type: NASOPHARYNX 12:00 PM [facility] PANEL(405) Comment: Tests performed on [employer] (405) Critical results called to and read back by: ALESHIA WILKINSON RN 12/06/21 @ 1312 Ordering Provid er: JELANI SÁNCHEZ Report Released Date/Time: Dec 06, 2021 11:57 AM Reporting Lab: [facility] DO[facility] T [facility] [address] [facility] [address] Performing Lab: [place] [facility] [address] [facility] [address] FLU A(PCR) NEGATIVE NEGATIVE FLU B(PCR) NEGATIVE NEGATIVE RSV(PCR) NEGATIVE NEGATIVE COVID-19(APN-dwn-[id number]) DETECTED HH NO T DETECTED Dec 06, 2021 12:00 PM [facility] Sp ecimen Type: BLOOD No comment enter ed. Ordering Provid er: JELANI SÁNCHEZ Report Released Date/Time: Dec 06, 2021 11:57 AM Reporting Lab: [facility] [address] [facility] [address] Performing Lab: [facility] [address] [facility] [address] WBC 7.2 4.5-11.0 RBC 4.86 4.23-5.66 HGB [...] 99 136/67 18 /min 98 % 0 [place]WLER 2021 11:35 /min mm[Hg] [facility] Nov 30, 0 [place] 2021 08:00 [facility] Dec 15, 96.9 F 93 134/71 18 /min 97 % 0 [place] 2021 05:01 /min mm[Hg] [facility] AM [facility] Social History: Smoking Status (Most current) [...] 7 YEARS AGO [facility] Tobacco Use History This section includes a history of the smoking, or tobacco- related health factors, that were collected on or before the date of the Encounter. The data comes from the [place] facility where the Encounter took place. Date/Time Smoking Status/Tobacco Use Comment [facility] Apr 01, 2020 01:16 PM QUIT TOBACCO USE 1-7 YEARS AGO [facility] Mar 24, 2020 03:00 PM QUIT [...] IN PAST YEAR CAREY DOYLE [facility] Mar 16, 2016 12:50 PM V1-PT DECLINES REF TO TOBACCO CAREY DOYLE [facility] CESS PRGM Mar 16, 2016 12:50 PM V1-PT THINKING ABOUT QUIT CAREY DOYLE [facility] TOBACCO USE Aug 12, 2015 08:48 AM CURRENT SMOKER CAREY Yates [facility] Radiology Reports: +/- 30 days of [...] PM MRI ABDOMEN W/WO CONTRAST: MARYELLEN LONG [facility] LUCAS MEEK N [id number] -1950 [facility] Exm Date: DEC 13, 2021@12:57 Req Phys: ISATU TODD Loc: OP Unknown/0 12-15-2021@13:20 Img Loc: MRI IMAGING (OOS) Service: [facility]ZGENERAL MEDICINE (Case [id number] COMPLETE) MRI ABDOMEN W/WO CONTRAST (M RI Detailed) CPT:61727 Reason for Study: further characterization of a [...] new lyphadenopathy REQUESTING MD: Isatu Todd PAGER: [phone] PHONE: [phone] Weight: 232.2 lb [105.32 kg] (12/12/2021 05:00) [...] patient will need to arrange for a dedicated driver to take him/her home after the [...] 15, 2021 Date Verified: DEC 15, 2021 Museum Attendant E-Sig:/EMELY/MARYELLEN LONG Report: MRI ABDOMEN W/WO CONTRAST [...] MALIGNANCY Primary Interpreting Staff: Staff AMELIA THOMAS (Museum Attendant) / Dec 10, 2021 09:[address] ABDOMEN & PELVIS: RADIOLOGY,OUTSIDE [facility] [place] LUCAS MEEK N [id number] -1950 M SERVICE [facility] Ex Date: DEC 10, 2021@09:30 Req Phys: ISATU TODD E Josseline Loc: 1S MED/12-10@10:57 Img Loc: CT SCAN (OOS) Service: [facility] (Case [id number] COMPLETE) CT ABD & PELVIS WITHOUT CONT RAST (CT Detailed) CPT:30515 Reason for Study: 71 yo male with [...] RADIOLOGY [phone] to speak to the appropriate pc network technician. Report Status: Verified Date Reported: DEC 10, 2021 Date Verified: DEC 10, 2021 Museum Attendant E-Sig: Report: EXAM: CT abdomen and pelvis [...] ph nodes. READING PHYSICIAN: Ramone Munoz D.O. [phone] 12/10/2021 10:55 EDT [facility] National Teleradiology Program [phone] (For Medical Practitioner Use Only ) [address] [facility], [facility] [address] [place] [address] Attention Patients / Veterans: If you have ques tions or concerns about these test results, please contact your o rdering provider or primary care team. Primary Diagnostic Code: SIGNIFICANT ABNORMALIT Y, ATTN NEEDED Primary Interpreting Staff: RADIOLOGY,OUTSIDE SERVICE, Staff Physician / Dec 09, 2021 07:34 AM BASW (MODIFIED): JESSIE CHENEY [facility] [place] LUCAS MEEK N [id number] -1950 [facility] Ex Date: DEC 09, 2021@07:34 Req Phys: ISATU TODD Pat Loc: 1S MED/12-09@11:26 Img Loc: XRAY (OOS) Service: [facility] MEDICINE (Case [id number] COMPLETE) BASW (MODIFIED) (EUNICE Alex d) CPT:44411 Contrast Media : Barium Reason for Study: dysphagia ?esophageal spasm Clinical History: Report Status: Verified Date Reported: DEC 09, 2021 Date Verified: DEC 09, 2021 Museum Attendant E-Sig:/ES/JESSIE CHENEY Report: BASW (MODIFIED) , 12/09/2021 [...] REQUIRED Primary Interpreting Staff: JESSIE CHENEY, RADIOLOGIST (Museum Attendant) /TLC Dec 06, 2021 12:[address] CHEST (INCLUDES ADRENALS): JESSIE CHENEY LUCAS LARES [id number] -1950 M [facility] Exm Date: DEC 06, 2021@12:59 Req Phys: JELANI SÁNCHEZ Pat Loc: [facility] ED DAYS M 1RD (Req'g Loc) Img Loc: CT SCAN (OOS) Service: Unknown (Case [id number] COMPLETE) CT THORAX W/O CONT (CT Detai led) CPT:48220 Reason for Study: Opacification right chest Clinical History: No contrast allergy BUN: 13 (12/06/21 12:00) CREATI: 0.90 (12/06/21 12:00) eGFR 05/16/21 09:43 52 L Weight: 232.6 lb [105.51 kg] (12/06/2021 11:40) BODY MASS INDEX - NO HEIGHTS FOUND Pager number: [phone] STAT orders MUST be called t o RADIOLOGY [phone] to speak to the appropriate pc network technician. Indications - Other: Opacification right chest, covid positive, lung cancer histo Report Status: Verified Date Reported: DEC 06, 2021 Date Verified: DEC 06, 2021 Museum Attendant E-Sig:/ES/JESSIE CHENEY Report: CT THORAX W/O CONT [...] REQUIRED Primary Interpreting Staff: JESSIE CHENEY, RADIOLOGIST (Museum Attendant) Primary Interpreting Resident: PRINCE CHAMPION, Resident /BR Dec 06, 2021 11:58 AM CHEST SINGLE VIEW: JESSIE CHENEYLUCAS N [id number] -1950 M [facility] Exm Date: DEC 06, 2021@11:58 Req Phys: JELANI SÁNCHEZ Pat Loc: [facility] ED DAYS M 1RD (Req'g Loc) Img Loc: XRAY (OOS) Service: Unknown (Case [id number] COMPLETE) CHEST SINGLE VIEW (RAD Detai led) CPT:18185 Proc Modifiers : PORTABLE EXAM Reason for Study: SOB, home covid test positive Clinical History: Report Status: Verified Date Reported: DEC 06, 2021 Date Verified: DEC 06, 2021 Museum Attendant E-Sig:/ES/JESSIE CHENEY Report: Exam type: Chest x-ray [...] REQUIRED Primary Interpreting Staff: JESSIE CHENEY, RADIOLOGIST (Museum Attendant) /TLC Pathology Reports: +/- 30 days of [...] comes from all [place] treatment facilities. Date/Time Pathology Report Provider Source Jan 03, 2022 10:28 AM LR SURGICAL PATHOLOGY REPORT: STEFANY MILLER [place] LOCAL TITLE: LR SURGICAL PATHOLOGY REPORT [facility] STANDARD TITLE: PATHOLOGY REPORT DATE OF NOTE: JAN 03, 2022@10:28:01 ENTRY DATE: JAN 03, 2022@10:28:01 AUTHOR: NIURKA MILLER EXP COSIGNER: URGENCY: STATUS: COMPLETED $APHDR Reporting Lab: [facility] [CLIA# [id number]] [address] [place] [address] - - - - - - [...] automatically d ocumented from SURGERY package case #[id number] Field (#32) PRINCIPAL PRE-OP DIAGNOSIS, (#.72) OTHER [...] automatically d ocumented from SURGERY package case #[id number] Field (#34) PRINCIPAL POST-OP DIAG, (#.74) OTHER [...] Label: Lucas Meek Paperwork: Lucas Meek Cassette: [id number];..;KALYANI;.;405;[phone] Specimen is labeled: ES bx Received in formalin are several pieces of pale boyd and brown tissue, 1.2 x 0.7 cm in aggregate. Submitted entirely in 1 cassette [id number];..;KALYANI;.;405;[phone] SAW 12/15/2021 Microscopic exam: *+* MODIFIED REPORT *+* (Last modified: JAN 03, 2022@09:30:20 typed by NIURKA WADDELL) DIAGNOSIS: A. 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 Kendell long. TIARA Coombs was notified on 12/21/21. Modified on 01/03/22 to include report from [facility] stating that tumor is NEGATIVE for her2/ matheus amplification. The attending pathologist who signature mansoor ears on this report has reviewed all diagnostic slides and has edited t he gross and/or microscopic portion of this report in rendering the final pathologic diagnosis. [address] [address] CPT: 34648 /emely/ NIURKA Yeung MD Signed Jan 03, 2022@10:28 Performing Laboratory: Surgical Pathology Report Performed By: CAREY MONTOYA [facility] [CLIA# [id number]] [address] [place] [address] $FTR - - - - - [...] - - LUCAS MEEK STANDARD FORM 515 ID:[id number] SEX:M :1950 AGE: 71 LOC: SDM END PCP: Isatu Todd /emely/ NIURKA MILLER Staff Signed: 01/03/2022 10:28 Dec 21, 2021 11:46 AM LR SURGICAL PATHOLOGY REPORT: STEFANY MILLER CAREY DOYLE [place] LOCAL TITLE: LR SURGICAL PATHOLOGY REPORT [facility] STANDARD TITLE: PATHOLOGY REPORT DATE OF NOTE: DEC 21, 2021@11:46:59 ENTRY DATE: DEC 21, 2021@11:46:59 AUTHOR: NIURKA MILLER EXP COSIGNER: URGENCY: STATUS: COMPLETED $APHDR Reporting Lab: [facility]Y MONTOYA [facility] [CLIA# [id number]] [address] [place] [facility] [address] - - - - - - [...] automatically d ocumented from SURGERY package case #[id number] Field (#32) PRINCIPAL PRE-OP DIAGNOSIS, (#.72) OTHER [...] automatically d ocumented from SURGERY package case #[id number] Field (#34) PRINCIPAL POST-OP DIAG, (#.74) OTHER [...] Label: Lucas Meek Paperwork: Lucas Meek Cassette: [id number];..;KALYANI;.;405;[phone] Specimen is labeled: ES bx Received in formalin are several pieces of pale boyd and brown tissue, 1.2 x 0.7 cm in aggregate. Submitted entirely in 1 cassette [id number];..;KALYANI;.;405;[phone] SAW 12/15/2021 Microscopic exam: DIAGNOSIS: A. 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 Kendell longTIARA Barba was notified on 12/21/21. The attending pathologist who signature mansoor ears on this report has reviewed all diagnostic slides and has edited t he gross and/or microscopic portion of this report in rendering the final pathologic diagnosis. [address] [address] CPT: 33047 /emely/ NIURKA Yeung MD Signed Dec 21, 2021@11:46 Performing Laboratory: Surgical Pathology Report Performed By: [facility] [CLIA# [id number]] [address] [place] [address] $FTR - - - - - [...] - - LUCAS MEEK STANDARD FORM 515 ID:[id number] SEX:M :1950 AGE: 71 LOC: SDM END PCP: Isatu Todd /emely/ NIURKA Yeung MD Signed: 12/21/2021 11:46 Dec 06, 2021 03:30 PM LR [facility] Reporting Lab: [facility] [CLIA# [id number]] [address] [place] [address] Accession [UID]: [id number] [[id number]] Receiv ed: Dec 06, 2021@16:14 Collection sample: BLOOD CUL T BOTTLE(NIRMAL/AERO)Collection date: Dec 06, 2021 15:30 Site/Specimen: BLOOD Provider: JELANI SÁNCHEZ Comment on specimen: LAC Test(s) ordered: BLOOD CULTURE ANAEROBI C....... completed: Dec 12, 2021 06:18 * BACTERIOLOGY FINAL REPORT => Dec 12, 2021 06:1 8 TECH CODE: 15419 Bacteriology Remark(s): NO GROWTH IN 5 DAYS =--=--=--=--=--=--=--=--=--=--=--=--=--= --=--=--=--=--=--=--=--=--=--=--=--=-- Performing Laboratory: Bacteriology Report Performed By: [facility] [CLIA# [id number]] [address] [place] [address] Dec 06, 2021 03:30 PM LR MICROBIOLOGY REPORT: [facility] Reporting Lab: [facility] [CLIA# [id number]] [address] [place] [address] Accession [UID]: [id number] [[id number]] Receiv ed: Dec 06, 2021@16:14 Collection sample: BLOOD CUL T BOTTLE(NIRMAL/AERO)Collection date: Dec 06, 2021 15:30 Site/Specimen: BLOOD Provider: JELANI SÁNCHEZ Comment on specimen: LAC Test(s) ordered: BLOOD CULTURE AEROBIC. ........ completed: Dec 12, 2021 06:17 * BACTERIOLOGY FINAL REPORT => Dec 12, 2021 06:1 7 TECH CODE: 56509 Bacteriology Remark(s): NO GROWTH IN 5 DAYS =--=--=--=--=--=--=--=--=--=--=--=--=--= --=--=--=--=--=--=--=--=--=--=--=--=-- Performing Laboratory: Bacteriology Report Performed By: [facility] [CLIA# [id number]] [address] [place] [address]
--- OUTSIDE RECORDS SUMMARY | 2022-01-19 08:06 | XMS_ITS | Encounter Summary ---
:1950 Author Organization [facility] Address [address] [place] [id number] Support Name Relationship Address Phone YUSRA MEEK Unavailable [address] [facility] [place] [address] YUSRA MEEK Unavailable [address] [place] [address] CLAY MOSLEY Unavailable Unavailable SJ SANTACRUZ Unavailable [...] MEDICARE MEDICARE PART Jun 18, PART A [id number] DO KALYANI PATIENT (WNR) (M) A 2016 13A 1 UGLAS MEDICARE MEDICARE PART Jun 18, PART B [id number] DO KALYANI PATIENT (WNR) (M) B 2016 13A 1 LAS MEDICARE MEDICARE PART Jun 18, PART A [id number] KALYANIDO PATIENT (WNR) (M) A 2017 VH81 2 LAS MEDICARE MEDICARE PART Jun 18, PART B [id number] DO KALYANI PATIENT (WNR) (M) B 2017 VH81 2 UGLAS UNITED MEDICARE MCR(Jun 18 [id number] Luz MEEK PATIENT HEALTHCARE ADVANTAGE NR) 2021 37 0 LAS [facility] (WNR) Selected Encounter This section includes the information on record at [place] for the Encounter. Date/Time Encounter Type Encounter Reason Provider Source Description Dec 15, 2021 [facility] BY PHARM CLINICAL PHARMACY ICD-10-CM ISABELA VASQUEZ 08:40 AM ADDL 15 MIN Z79.899 [facility] group [facility] (current) drug therapy with Provider Comments: Other [facility] (Current) Drug Therapy IHE Encounter Template Text not used by [place] Assessments - Encounter Diagnoses This section includes the primary and secondary diagnoses documented for the Encounter. 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 therapy Plan of Treatment: Future Appointments (+ 6 months) and Future Tests (+/- 45 days) The Plan of Treatment section includes future care activities for the patient from all [place] treatmentfacilities. This section includes future appointments and future orders which are active, pending orscheduled.Future Appointments This section includes appointments that were scheduled to occur 6 months from the date of the Encounter, up to a maximum of 20 appointments. The data comes from all [place] treatment facilities. Appointment Date/Time Appointment Type Appointment Facili ty Name Dec 21, 2021 08:00 AM AMBULATORY - NONE CARYE DOYLE T [facility] Jan 06, 2022 02:00 PM AMBULATORY - REHAB MEDICINE WHITE [facility] R T [facility] Jan 10, 2022 11:30 AM AMBULATORY - MEDICINE [facility] Jan 24, 2022 08:00 AM [place]AT[place] [facility] Feb 21, 2022 10:00 AM [facility] Mar 21, 2022 10:30 AM AMBULATORY - [...] the Encounter. The data comes from all [place] treatment [facility]. Test Date/Time Test Type Test Details Facility Name October 31, 2021 07:37 AM Consult Order [facility] Cons Commercial Lines Manager's Choice November 15, 2021 10:37 AM Consult Order [facility] CARE-PODIATRY Cons Commercial Lines Manager's Choice Dec 06, 2021 12:52 PM Pharmacy - [place] Infusion Order [facility] Dec 06, 2021 03:24 PM Pharmacy - [place] [facility] Dec 06, 2021 03:40 PM Pharmacy - [place]fusion Order [facility] Dec 15, 2021 08:41 AM Consult Order SPEECH PATHOLOGY [place] OUTPATIENT Cons [facility] Commercial Lines Manager's Choice Jan 15, 2022 10:08 PM Consult Order [facility] CARE-PALLIATIVE CARE Cons Commercial Lines Manager's Choice Lab Results: +/- 30 days of the encounter This section includes the Chemistry and Hematology Lab Results on record with [place] for the patient. Radiology Reports and Pathology Reports are provided separately, in subsequent sections.Lab Results This section contains the Chemistry/Hematology Results that were resulted 30 days before or 30 daysafter the date of the Encounter. Date/Time Source Result Type Result - Unit Interpretation Reference Range Comment Dec 15, 2021 [place] P4 GLU,BUN,CREAT,LYTES,CA Speci men Type: PLASMA 06:43 AM [facility] Comment: Tests performed on [employer] (405) SN:[id number] Ordering Provid er: ISATU TODD Report Released Date/Time: Dec 11, 2021 07:42 AM Reporting Lab: [facility] [address] [facility] [address] Performing Lab: [facility] [address] [facility] [address] UREA NITROGEN 9 7-25 SODIUM 137 135-145 POTASSIUM 3.8 3.5-5.0 CHLORIDE 105 100-110 CARBON DIOXIDE 26 20-30 ANION GAP 6 4-16 GLUCOSE 102 H 65-100 CREATININE 0.64 0.5-1.5 CALCIUM 8.1 L 8.5-10.5 eGFR(CKD-EPI 2020) >90.0 >60 Dec 15, 2021 06:43 AM [facility] Sp ecimen Type: BLOOD No comment enter ed. Ordering Provid er: ISATU TODD Report Released Date/Time: Dec 10, 2021 07:22 AM Reporting Lab: [facility] [address] [facility] [address] Performing Lab: [place] [facility] [address] [facility] [address] WBC 5.7 4.5-11.0 RBC 4.22 L 4.23-5.66 [...] ABSOLUTE NRBC 0.00 0-0 Dec 14, 2021 [place] [facility] CYTOGENETIC Specimen Type: ESOPHAGUS 02:59 PM VAOC FISH([facility]) Comment: ~For T est: CYTOGENETIC FISH([facility]) ~FISH HER 2 NUE, FFPE See full report in Make My plate Image display viewer/tab#LAB-Reference Ordering Provid er: NIURKA MILLER Report Released Date/Time: Dec 21, 2021 12:11 PM Reporting Lab: [place] [facility] [address] [facility] [address] Performing Lab: [facility] CYTOGENETIC FISH([facility]) comment Dec 14, 2021 [place] P4 GLU,BUN,CREAT,LYTES,CA Speci men Type: PLASMA 06:27 AM [facility] Comment: Tests performed on Comic Rocket (405) SN:[id number] Ordering Provid er: ISATU TODD Report Released Date/Time: Dec 11, 2021 07:42 AM Reporting Lab: [place] [facility] [address] [facility] [address] Performing Lab: [facility] [address] [facility] [address] UREA NITROGEN 10 7-25 SODIUM 137 135-145 POTASSIUM 4.0 3.5-5.0 CHLORIDE 104 100-110 CARBON DIOXIDE 25 20-30 ANION GAP 8 4-16 GLUCOSE 99 65-100 CREATININE 0.67 0.5-1.5 CALCIUM 8.2 L 8.5-10.5 eGFR(CKD-EPI 2020) >90.0 >60 Dec 14, 2021 06:27 AM [facility] CBC PROFILE Sp ecimen Type: BLOOD No comment enter ed. Ordering Provid er: ISATU TODD Report Released Date/Time: Dec 10, 2021 07:22 AM Reporting Lab: [facility] [address] [facility] [address] Performing Lab: [facility] [address] [facility] [address] WBC 6.0 4.5-11.0 RBC 4.29 4.23-5.66 HGB [...] ABSOLUTE NRBC 0.00 0-0 Dec 13, 2021 [facility] P4 GLU,BUN,CREAT,LYTES,CA Speci men Type: PLASMA 06:34 AM [facility] Comment: Tests performed on [employer]ocket (405) SN:[id number] Ordering Provid er: ISATU TODD Report Released Date/Time: Dec 11, 2021 07:42 AM Reporting Lab: [facility] [address] [facility] [address] Performing Lab: [facility] [address] [facility] [address] UREA NITROGEN 12 7-25 SODIUM 136 135-145 POTASSIUM 3.9 3.5-5.0 CHLORIDE 105 100-110 CARBON DIOXIDE 24 20-30 ANION GAP 7 4-16 GLUCOSE 102 H 65-100 CREATININE 0.66 0.5-1.5 CALCIUM 8.3 L 8.5-10.5 eGFR(CKD-EPI 2020) >90.0 >60 Dec 13, 2021 06:34 AM [facility] CBC PROFILE Sp ecimen Type: BLOOD No comment enter ed. Ordering Provid er: ISATU TODD Report Released Date/Time: Dec 10, 2021 07:22 AM Reporting Lab: [facility] [address] [facility] [address] Performing Lab: [facility] [address] [facility] [address] WBC 5.6 4.5-11.0 RBC 4.28 4.23-5.66 HGB [...] ABSOLUTE NRBC 0.00 0-0 Dec 12, 2021 [facility] P4 GLU,BUN,CREAT,LYTES,CA Speci men Type: PLASMA 06:21 AM [facility] Comment: Tests performed on [employer] (405) SN:[id number] Ordering Provid er: ISATU TODD Report Released Date/Time: Dec 11, 2021 07:42 AM Reporting Lab: [facility] [address] [facility] [address] Performing Lab: [facility] [address] [facility] [address] UREA NITROGEN 11 7-25 SODIUM 139 135-145 POTASSIUM 4.1 3.5-5.0 CHLORIDE 107 100-110 CARBON DIOXIDE 24 20-30 ANION GAP 8 4-16 GLUCOSE 110 H 65-100 CREATININE 0.70 0.5-1.5 CALCIUM 8.3 L 8.5-10.5 eGFR(CKD-EPI 2020) >90.0 >60 Dec 12, 2021 06:21 AM [facility] CBC PROFILE Sp ecimen Type: BLOOD No comment enter ed. Ordering Provid er: ISATU TODD Report Released Date/Time: Dec 10, 2021 07:22 AM Reporting Lab: [facility] [address] [facility] [address] Performing Lab: [facility] [address] [facility] [address] WBC 5.5 4.5-11.0 RBC 4.37 4.23-5.66 HGB [...] Type: PLASMA Comment: Testin g Performed on Comic Rocket (405) SN:[id number] Ordering Provid er: ISATU TODD Report Released Date/Time: Dec 12, 2021 08:24 AM Reporting Lab: [place] [facility] [address] [facility] [address] Performing Lab: [place] [facility] [address] [facility] [address] MAGNESIUM 1.8 1.6-2.6 Dec 12, 2021 06:00 AM [place] [employer] [facility] PHOSPHORUS Sp ecimen Type: PLASMA Comment: Testin g Performed on [employer] (405) SN:[id number] Ordering Provid er: ISATU TODD Report Released Date/Time: Dec 12, 2021 08:24 AM Reporting Lab: [place] [facility] [address] [facility] [address] Performing Lab: [place] [facility] [address] [facility] [address] PHOSPHORUS 3.1 2.5-5.0 Dec 11, 2021 06:15 AM [place] [facility] ELECTROLYTES Sp ecimen Type: PLASMA Comment: Tests performed on [employer] (405) SN:[id number] Ordering Provid er: ISATU TODD Report Released Date/Time: Dec 10, 2021 07:22 AM Reporting Lab: [facility] [address] [facility] [address] Performing Lab: [facility] [address] [facility] [address] SODIUM 137 135-145 POTASSIUM 4.3 3.5-5.0 CHLORIDE 108 100-110 CARBON DIOXIDE 20 20-30 ANION GAP 9 4-16 Dec 11, 2021 06:15 AM [facility] CBC PROFILE Sp ecimen Type: BLOOD Comment: Result s checked Ordering Provid er: ISATU TODD Report Released Date/Time: Dec 10, 2021 07:22 AM Reporting Lab: [facility] [address] [facility] [address] Performing Lab: [facility] [address] [place] [id number] WBC 5.8 4.5-11.0 RBC 4.37 4.23-5.66 HGB [...] 0.00 0-0 Dec 11, 2021 06:00 AM [facility] PHOSPHORUS Sp ecimen Type: PLASMA Comment: Tests performed on [employer]ocket (405) SN:[id number] Results checked Ordering Provid er: SIATU TODD Report Released Date/Time: Dec 11, 2021 07:44 AM Reporting Lab: [place] [facility] [address] [place] [facility] [place] [place] [address] Performing Lab: [place] [facility] [address] [place] [facility] [place] [facility] [place] [address] PHOSPHORUS 3.0 2.5-5.0 Dec 10, 2021 08:05 AM [place] [facility] MAGNESIUM Sp ecimen Type: PLASMA Comment: [place] [id number] on Dec 10, 2021@08:31 Tests performed on [employer] (405) SN:[id number] Ordering Provid er: ISATU TODD Report Released Date/Time: Dec 10, 2021 07:22 AM Reporting Lab: [place] [facility] [address] [place] [facility] [place] [facility] [place] [address] Performing Lab: [place] [facility] [address] [place] [facility] [place] [address] MAGNESIUM 1.7 1.6-2.6 Dec 10, 2021 08:05 AM [place] [facility] PHOSPHORUS Sp ecimen Type: PLASMA Comment: [place] [id number] on Dec 10, 2021@08:31 Tests performed on [employer] (405) SN:[id number] Ordering Provid er: ISATU TODD Report Released Date/Time: Dec 10, 2021 07:22 AM Reporting Lab: [place] [facility] [address] [facility] [place] [address] Performing Lab: [place] [facility] [address] [place] [facility] [place] [address] PHOSPHORUS 1.8 L 2.5-5.0 Dec 10, 2021 08:05 AM [place] UREA NITROGEN Specimen Type: PLASMA [facility] Comment: [place] [id number] on Dec 10, 2021@08:31 Tests performed on [employer] (405) SN:[id number] Ordering Provid er: ISATU TODD Report Released Date/Time: Dec 10, 2021 07:22 AM Reporting Lab: [place] [facility] [address] [facility] [place] [address] Performing Lab: [place] [facility] [address] [place] [facility] [place] [address] UREA NITROGEN 8 7-25 Dec 10, 2021 08:05 AM [place] [facility] GLUCOSE Sp ecimen Type: PLASMA Comment: [place] [id number] on Dec 10, 2021@08:31 Tests performed on [employer] (405) SN:[id number] Ordering Provid er: ISATU TODD Report Released Date/Time: Dec 10, 2021 07:22 AM Reporting Lab: [place] [facility] [address] [facility] [address] Performing Lab: [place] [facility] [address] [facility] [address] GLUCOSE 144 H 65-100 Dec 10, 2021 08:05 AM [place] [facility] CALCIUM Sp ecimen Type: PLASMA Comment: [place] [id number] on Dec 10, 2021@08:31 Tests performed on [employer] (405) SN:[id number] Ordering Provid er: ISATU TODD Report Released Date/Time: Dec 10, 2021 07:22 AM Reporting Lab: [place] [facility] [address] [facility] [address] Performing Lab: [place] [facility] [address] [place] [facility] [place] [address] CALCIUM 8.3 L 8.5-10.5 Dec 10, 2021 08:05 AM [place] [facility] ELECTROLYTES Sp ecimen Type: PLASMA Comment: [place] [id number] on Dec 10, 2021@08:31 Tests performed on [employer] (405) SN:[id number] Ordering Provid er: ISATU TODD Report Released Date/Time: Dec 10, 2021 07:22 AM Reporting Lab: [place] [facility] [address] [place] [facility] [place] [address] Performing Lab: [place] [facility] [address] [place] [facility] [place] [address] SODIUM 139 135-145 POTASSIUM 3.7 3.5-5.0 CHLORIDE 107 100-110 CARBON DIOXIDE 24 20-30 ANION GAP 8 4-16 Dec 10, 2021 08:05 [place] CREATININE WITH eGFR Specime n Type: PLASMA AM [facility] PANEL Comment: [place] [id number] on Dec 10, 2021@08:31 Tests performed on [employer] (405) SN:[id number] Ordering Provid er: ISATU TODD Report Released Date/Time: Dec 10, 2021 07:22 AM Reporting Lab: [facility] [address] [facility] [address] Performing Lab: [facility] [address] [facility] [address] CREATININE 0.78 0.5-1.5 eGFR(CKD-EPI 2020) >90.0 >60 Dec 10, 2021 08:05 AM [facility] CBC PROFILE Sp ecimen Type: BLOOD No comment enter ed. Ordering Provid er: ISATU TODD Report Released Date/Time: Dec 10, 2021 07:22 AM Reporting Lab: [facility] [address] [facility] [address] Performing Lab: [facility] [address] [facility] [address] WBC 7.0 4.5-11.0 RBC 4.54 4.23-5.66 HGB [...] 0.00 0-0 Dec 09, 2021 06:46 AM [facility] MAGNESIUM Sp ecimen Type: PLASMA Comment: Tests performed on [employer] (405) SN:[id number] Ordering Provid er: ISATU TODD Report Released Date/Time: Dec 08, 2021 10:23 AM Reporting Lab: [facility] [address] [facility] [address] Performing Lab: [facility] [address] [facility] [address] MAGNESIUM 1.6 1.6-2.6 Dec 09, 2021 [place] P4 GLU,BUN,CREAT,LYTES,CA Speci men Type: PLASMA 06:46 AM [facility] Comment: Tests performed on [employer] (405) SN:[id number] Ordering Provid er: ISATU TODD Report Released Date/Time: Dec 08, 2021 05:00 PM Reporting Lab: [place] [facility] [address] [facility] [address] Performing Lab: [facility] [address] [facility] [address] UREA NITROGEN 6 L 7-25 SODIUM 134 L 135-145 POTASSIUM 3.7 3.5-5.0 CHLORIDE 103 100-110 CARBON DIOXIDE 23 20-30 ANION GAP 8 4-16 GLUCOSE 112 H 65-100 CREATININE 0.70 0.5-1.5 CALCIUM 8.1 L 8.5-10.5 eGFR(CKD-EPI 2020) >90.0 >60 Dec 09, 2021 06:46 AM [place] [facility] CBC PROFILE Sp ecimen Type: BLOOD No comment enter ed. Ordering Provid er: ISATU TODD Report Released Date/Time: Dec 08, 2021 05:00 PM Reporting Lab: [place] [facility] [address] [facility] [address] Performing Lab: [place] [facility] [address] [facility] [address] WBC 7.1 4.5-11.0 RBC 4.40 4.23-5.66 HGB [...] 0.00 0-0 Dec 08, 2021 06:39 AM [facility] MAGNESIUM Sp ecimen Type: PLASMA Comment: Testin g Performed on [employer] (405) SN:[id number] Ordering Provid er: ISATU TODD Report Released Date/Time: Dec 07, 2021 10:32 AM Reporting Lab: [facility] [address] [facility] [address] Performing Lab: [facility] [address] [facility] [address] MAGNESIUM 1.5 L 1.6-2.6 Dec 08, 2021 [facility] P4 GLU,BUN,CREAT,LYTES,CA Speci men Type: PLASMA 06:39 AM [facility] Comment: Testin g Performed on [employer] (405) SN:[id number] Ordering Provid er: ISATU TODD Report Released Date/Time: Dec 07, 2021 10:32 AM Reporting Lab: [place] [employer] [facility] [address] [facility] [address] Performing Lab: [facility] [address] [facility] [address] UREA NITROGEN 6 L 7-25 SODIUM 136 135-145 POTASSIUM 3.3 L 3.5-5.0 CHLORIDE 104 100-110 CARBON DIOXIDE 22 20-30 ANION GAP 10 4-16 GLUCOSE 133 H 65-100 CREATININE 0.76 0.5-1.5 CALCIUM 8.4 L 8.5-10.5 eGFR(CKD-EPI 2020) >90.0 >60 Dec 08, 2021 06:39 AM [facility] CBC PROFILE Sp ecimen Type: BLOOD No comment enter ed. Ordering Provid er: ISATU TODD Report Released Date/Time: Dec 07, 2021 10:32 AM Reporting Lab: [facility] [address] [facility] [address] Performing Lab: [facility] [address] [facility] [address] WBC 8.4 4.5-11.0 RBC 4.75 4.23-5.66 HGB [...] ABSOLUTE NRBC 0.00 0-0 Dec 07, 2021 [facility] P4 GLU,BUN,CREAT,LYTES,CA Speci men Type: PLASMA 06:42 AM [facility] Comment: Tests performed on [employer] (405) SN:[id number] Ordering Provid er: PORFIRIO WALTERS Report Released Date/Time: Dec 06, 2021 06:57 PM Reporting Lab: [facility] [address] [facility] [address] Performing Lab: [place] [facility] [address] [facility] [address] UREA NITROGEN 9 7-25 SODIUM 135 135-145 POTASSIUM 3.5 3.5-5.0 CHLORIDE 103 100-110 CARBON DIOXIDE 22 20-30 ANION GAP 10 4-16 GLUCOSE 92 65-100 CREATININE 0.73 0.5-1.5 CALCIUM 8.0 L 8.5-10.5 eGFR(CKD-EPI 2020) >90.0 >60 Dec 07, 2021 06:42 [place] LIVER PROFILE Specimen Typ e: PLASMA AM [facility] Comment: Tests performed on [employer] (405) SN:[id number] Ordering Provid er: PORFIRIO WALTERS Report Released Date/Time: Dec 06, 2021 06:57 PM Reporting Lab: [facility] [address] [facility] [address] Performing Lab: [facility] [address] [facility] [address] PROTEIN, TOTAL 5.7 L 6.0-8.5 ALBUMIN 2.4 L 3.2-5.0 BILIRUBIN, TOTAL 0.4 0.2-1.2 ALKALINE PHOSPHATASE 109 40-150 ALT(SGPT) 10 7-52 AST(SGOT) 15 5-34 FIB-4 SCORE 1.92 <2.67 Dec 07, 2021 06:42 AM [place] CBC PROFILE Specimen Type: BLOOD [facility] No comment enter ed. Ordering Provid er: PORFIRIO WALTERS Report Released Date/Time: Dec 06, 2021 06:57 PM Reporting Lab: [facility] [address] [facility] [address] Performing Lab: [facility] [address] [facility] [address] WBC 5.7 4.5-11.0 RBC 4.15 L 4.23-5.66 [...] [facility] %) AUTOMATED Comment: Tests performed on [employer] (405) SN:[id number] Ordering Provid er: ISATU TODD Report Released Date/Time: Dec 07, 2021 10:28 AM Reporting Lab: [place] [facility] [address] [facility] [address] Performing Lab: [place] [facility] [address] [facility] [address] RETICULOCYTES (%) AUTOMATED 1.23 0. 6-2.0 RETICULOCYTES (ABS) AUTOMATED 0.052 0.030-0.090 Dec 06, 2021 09:45 [place] MRSA SURVL NARES Specimen Ty pe: NARES PM [facility] DNA No comment enter ed. Ordering Provid er: ALVARO VARGHESE Report Released Date/Time: Dec 07, 2021 02:20 AM Reporting Lab: [place] [facility] [address] [facility] [address] Performing Lab: [place] [facility] [address] [facility] [address] MRSA SURVL NARES DNA NEGATIVE NEGATIVE Dec 06, 2021 06:00 [place] URINALYSIS W/REFLEX TO Speci men Type: URINE PM [facility] CULTURE No comment enter ed. Ordering Provid er: JELANI SÁNCHEZ Report Released Date/Time: Dec 06, 2021 11:57 AM Reporting Lab: [facility] [address] [facility] [address] Per[facility] Lab: [facility] [address] [facility] [address] URINE COLOR Arlin YELLOW SPECIFIC GRAVITY 1.029 [...] 21, [place] Comment: https://www.cdc.gov/coronavirus/2019-ncov/cases-updates/variant- surveillance/variant-info.html The [employer] SARS CoV 2 [employer] Research Assay-GX is a next-generation sequencing (NGS) assa 2021 [facility] SEQUENCING y that determine s the complete genome sequence of the SARS-CoV-2 virus. The assay contains variant-tolerant primers to broaden and improve the coverage for variant detection and increase the sensitivity 12:00 [facility] PNL() of the panel to enable detection from lower viral titer samples. The assay is run on the [employer] Sky Sequencer, which performs automated library preparation, sequencing, analysis, and reporting. PM The sequence an alysis includes determination of viral phylogenetic lineage by comparison to the reference strain Wuhan-Hu-1, GenBank: [id number]. Sequence determination may not be possible owing [...] and its performance characteristics determined by the [facility] Molecular [facility]ostics Laboratory, which is certified under the Clinical Laboratory Improveme nt Amendments (C MARCO) as qualified to perform high complexity clinical laboratory testing. This test is validated for clinical use at [facility] and should not be regarded as investigational or for research. The FDA does not require this test to go through premarket FDA review, and therefore it has not been cleared or approved by the FDA. This report was reviewed and approved by the on-service pathologist. Ordering Provid er: JELANI SÁNCHEZ Report Released Date/Time: Dec 06, 2021 01:13 PM Reporting Lab: [facility] [address] [facility] [address] Performing Lab: [facility] [address] [facility] [address] SARS-CoV-2 CLADE() 22C (OMICRON) SARS-CoV-2 LINEAGE() [id number] Dec 06, 2021 12:00 [place] [facility] COVID-19 AG SCREEN Specimen Type: NASAL CAVITY [facility] PANEL BINAX(405) Comment: Testi ng Performed By: Mike Briscoe Ordering Provid er: JELANI SÁNCHEZ Report Released Date/Time: Dec 08, 2021 08:23 AM Reporting Lab: [facility] [address] [facility] [id number] Performing Lab: [facility] [address] [facility] [address] COVID-19 AG SCRN(wrj BINAX) POSITIVE HH NE G Dec 06, 2021 12:00 PM [facility] TROPONIN II Sp ecimen Type: PLASMA Comment: Tests performed on Comic Rocket (405) [id number] Ordering Provid er: JELANI SÁNCHEZ Report Released Date/Time: Dec 06, 2021 11:57 AM Reporting Lab: [facility] [address] [facility] [address] Performing Lab: [facility] [address] [facility] [address] TROPONIN II 0.03 0.00-0.29 Dec 06, 2021 12:00 PM [facility] BNP(P) Sp ecimen Type: PLASMA Comment: Tests performed on Pham Ply Splicer (405) SN:[id number] Ordering Provid er: JELANI SÁNCHEZ Report Released Date/Time: Dec 06, 2021 11:57 AM Reporting Lab: [facility] [address] [facility] [address] Performing Lab: [facility] [address] [facility] [address] BNP(P) 224.8 H 10-100 Dec 06, 2021 [facility] P[facility] GLU,BUN,CREAT,LYTES,CA Speci men Type: PLASMA 12:00 PM [facility] Comment: Testin g Performed on Pahm Ply Splicer (405) SN:[id number] Ordering Provid er: JELANI SÁNCHEZ Report Released Date/Time: Dec 06, 2021 11:57 AM Reporting Lab: [facility] [address] [facility] [address] Performing Lab: [facility] [address] [facility] [address] UREA NITROGEN 13 7-25 SODIUM 138 135-145 POTASSIUM 3.8 3.5-5.0 CHLORIDE 103 100-110 CARBON DIOXIDE 23 20-30 ANION GAP 12 4-16 GLUCOSE 105 H 65-100 CREATININE 0.90 0.5-1.5 CALCIUM 8.7 8.5-10.5 eGFR(CKD-EPI 2020) >90.0 >60 Dec 06, 2021 12:00 PM [facility] LIVER PROFILE Sp ecimen Type: PLASMA Comment: Testin g Performed on Pham Ply Splicer (405) SN:[id number] Ordering Provid er: JELANI SÁNCHEZ Report Released Date/Time: Dec 06, 2021 11:57 AM Reporting Lab: [facility] [address] [facility] [address] Performing Lab: [facility] [address] [facility] [address] PROTEIN, TOTAL 6.6 6.0-8.5 ALBUMIN 2.8 L 3.2-5.0 BILIRUBIN, TOTAL 0.6 0.2-1.2 ALKALINE PHOSPHATASE 134 40-150 ALT(SGPT) 13 7-52 AST(SGOT) 18 5-34 FIB-4 SCORE 1.94 <2.67 Dec 06, 2021 [facility] COVID-19+FLU/RSV DIAGNOSTIC Spe cimen Type: NASOPHARYNX 12:00 PM [facility] PANEL(405) Comment: Tests performed on [employer] Genexpert (405) Critical results called to and read back by: ALESHIA WILKINSON RN 12/06/21 @ 1312 Ordering Provid er: JELANI SÁNCHEZ Report Released Date/Time: Dec 06, 2021 11:57 AM Reporting Lab: [facility] [address] [facility] [address] Performing Lab: [facility] [address] [facility] [address] FLU A(PCR) NEGATIVE NEGATIVE FLU B(PCR) NEGATIVE NEGATIVE RSV(PCR) NEGATIVE NEGATIVE COVID-19(KOT-arh-TCITNZEBI) DETECTED HH NO T DETECTED Dec 06, 2021 12:00 PM [facility] CBC PROFILE Sp ecimen Type: BLOOD No comment enter ed. Ordering Provid er: JELANI SÁNCHEZ Report Released Date/Time: Dec 06, 2021 11:57 AM Reporting Lab: [facility] [address] [facility] [address] Performing Lab: [facility] [address] [facility] [address] WBC 7.2 4.5-11.0 RBC 4.86 4.23-5.66 HGB [...] 99 136/67 18 /min 98 % 0 [facility] 2021 11:35 /min mm[Hg] [facility] Dec 15, 0 [facility] 2021 08:00 [facility] Dec 15, 96.9 F 93 134/71 18 /min 97 % 0 [facility] 2021 05:01 /min mm[Hg] [facility] Social History: Smoking Status (Most current) and Tobacco Use (All prior to encounter date) This section includes the most current, and the historical, smoking and tobacco-related health factors from the [place] facility where the Encounter took place.Current Smoking Status This section includes the most current smoking, or tobacco-related health factor, from the [place] facility where the Encounter took place. Date/Time Current Smoking Status Comment Facility Dec 06, 2021 11:40 AM QUIT TOBACCO USE > 7 YEARS AGO [facility] Tobacco Use History This section includes a history of the smoking, or tobacco- related health factors, that were collected on or before the date of the Encounter. The data comes from the [place] facility where the Encounter took place. Date/Time Smoking Status/Tobacco Use Comment [facility] Apr 01, 2020 01:16 PM QUIT TOBACCO USE 1-7 YEARS AGO [facility] Mar 24, 2020 03:00 PM QUIT [...] USE IN PAST YEAR CAREY DOYLE [facility] May 19, 2016 10:29 AM QUIT TOBACCO USE 1-7 YEARS AGO CAREY DOYLE [facility] May 01, 2016 07:26 PM QUIT TOBACCO USE IN PAST YEAR CAREY DOYLE [facility] May 01, 2016 03:11 PM QUIT TOBACCO USE IN PAST YEAR CAREY DOYLE [facility] May 01, 2016 11:19 AM QUIT TOBACCO USE IN PAST YEAR CAREY DOYLE [facility] Mar 16, 2016 12:50 PM V1-PT DECLINES REF TO TOBACCO CAREY DOYLE [facility] CESS PRGM Mar 16, 2016 12:50 PM V1-PT THINKING ABOUT QUIT CAREY DOYLE [facility] TOBACCO USE Aug 12, 2015 08:48 AM CURRENT SMOKER CAREY Yates [facility] Radiology Reports: +/- 30 days of [...] the Encounter. The data comes from all [place] treatment facilities. Date/Time Radiology Report Provider Source Dec 13, 2021 12:57 PM MRI ABDOMEN W/WO CONTRAST: MARYELLEN LONG LUCAS LARES N [id number] -1950 [facility] Exm Date: DEC 13, 2021@12:57 Req Phys: ISATU TODD Loc: OP Unknown/0 12-15-2021@13:20 Img Loc: MRI IMAGING (OOS) Service: ZZGENERAL MEDICINE (Case [id number] COMPLETE) MRI ABDOMEN W/WO CONTRAST (M RI Detailed) CPT:88550 Reason for Study: further characterization of a [...] new lyphadenopathy REQUESTING MD: Isatu Todd PAGER: [phone] PHONE: [phone] Weight: 232.2 lb [105.32 kg] (12/12/2021 05:00) [...] Is the patient claustrophobic? Yes If yes, p cony prescribe an oral anxiolytic (such as Ativan) for the patien t to take with him/her to the MRI appointment.The patient will need to arrange for a road driver to take him/her home after the [...] 15, 2021 Date Verified: DEC 15, 2021 [employer] E-Sig:/ES/MARYELLEN LONG Report: MRI ABDOMEN W/WO CONTRAST [...] MALIGNANCY Primary Interpreting Staff: Staff AMELIA THOMAS (S[employer]ing Machine [employer]) / Dec 10, 2021 09:[address] ABDOMEN & PELVIS[facility] LUC[facility]EEK N [id number] -1950 M [facility] Exm Date: DEC 10, 2021@09:30 Req Phys: ISATU TODD Loc: [facility]/12-10@10:57 Img Loc: CT SCAN (OOS) Service: ZZGENERAL MEDICINE (Case [id number] COMPLETE) CT ABD & PELVIS WITHOUT CONT RAST (CT Detailed) CPT:88297 Reason for Study: 71 yo male with [...] RADIOLOGY [phone] to speak to the appropriate integration technician. Report Status: Verified Date Reported: DEC 10, 2021 Date Verified: DEC 10, 2021 [employer] E-Sig: Report: EXAM: CT abdomen and pelvis [...] ph nodes. READING PHYSICIAN: Ramone Munoz D.O. [phone] 12/10/2021 10:55 EDT [facility] [phone] (For Medical Practitioner Use Only ) [address] [facility] [facility] [address] [place] [address] Attention Patients / Veterans: If you have ques tions or concerns about these test results, please contact your o rdering provider or primary care team. Primary Diagnostic Code: SIGNIFICANT ABNORMALIT Y, ATTN NEEDED Primary Interpreting Staff: RADIOLOGY,OUTSIDE SERVICE, Staff Physician / Dec 09, 2021 07:34 AM BASPrincess (MODIFIED): JESSIE CHENEY [facility] LUCAS MEEK N [id number] -1950 M [facility] Exm Date: DEC 09, 2021@07:34 Req Phys: ISATU TODD E Pat Loc: 1S MED/12-09@11:26 Img Loc: XRAY (OOS) Service: [facility] MEDICINE (Case [id number] COMPLETE) BASPrincess (MODIFIED) (EUNICE stephenson) CPT:50862 Contrast Media : Barium Reason for Study: dysphagia ?esophageal spasm Clinical History: Report Status: Verified Date Reported: DEC 09, 2021 Date Verified: DEC 09, 2021 [employer] E-Sig:/ES/JESSIE CHENEY Report: DELISA (MODIFIED) , 12/09/2021 TECHNIQUE: Real-time fluoroscopic images [...] REQUIRED Primary Interpreting Staff: JESSIE CHENEY, RADIOLOGIST (Sewing Machine Operator [employer]) /TLC Dec 06, 2021 12:[address] CHEST (INCLUDES ADRENALS): [facility] LUCAS MEEK N [id number] -1950 M [facility] Exm Date: DEC 06, 2021@12:59 Req Phys: JELANI SÁNHCEZ Loc: [facility] ED DAYS M 1RD (Req'g Loc) Img Loc: CT SCAN (OOS) Service: Unknown (Case [id number] COMPLETE) CT THORAX W/O CONT (CT Detai led) CPT:60503 Reason for Study: Opacification right chest Clinical History: No contrast allergy BUN: 13 (12/06/21 12:00) CREATI: 0.90 (12/06/21 12:00) eGFR 05/16/21 09:43 52 L Weight: 232.6 lb [105.51 kg] (12/06/2021 11:40) BODY MASS INDEX - NO HEIGHTS FOUND Pager number: [phone] STAT orders MUST be called t o RADIOLOGY [phone] to speak to the appropriate integration technician. Indications - Other: Opacification right chest, covid positive, lung cancer histo Report Status: Verified Date Reported: DEC 06, 2021 Date Verified: DEC 06, 2021 [employer] E-Sig:/ES/JESSIE CHENEY Report: CT THORAX W/O CONT [...] REQUIRED Primary Interpreting Staff: JESSIE CHENEY, RADIOLOGIST (Sewing Machine Operator Paper [employer]ags) Primary Interpreting Resident: PRINCE CHAMPION, Resident /BR Dec 06, 2021 11:58 AM CHEST SINGLE VIEW: JESSIE CHENEY LUCAS LARES N [id number] -1950 M [facility] Exm Date: DEC 06, 2021@11:58 Req Phys: JELANI SÁNCHEZ Pat Loc: [facility] ED DAYS M 1RD (Req'g Loc) Img Loc: XRAY (OOS) Service: Unknown (Case [id number] COMPLETE) CHEST SINGLE VIEW (RAD Detai led) CPT:97463 Proc Modifiers : PORTABLE EXAM Reason for Study: SOB, home covid test positive Clinical History: Report Status: Verified Date Reported: DEC 06, 2021 Date Verified: DEC 06, 2021 [employer] E-Sig:/ES/JESSIE CHENEY Report: Exam type: Chest x-ray [...] REQUIRED Primary Interpreting Staff: JESSIE CHENEY, RADIOLOGIST (Sewing Machine Operator Paper [employer]ags) /[facility] Pathology Reports: +/- 30 days of [...] the Encounter. The data comes from all [place] treatment facilities. Date/Time Pathology Report Provider Source Jan 03, 2022 10:28 AM LR SURGICAL PATHOLOGY REPORT: STEFANY MILLER LOCAL TITLE: LR SURGICAL PATHOLOGY REPORT [facility] STANDARD TITLE: PATHOLOGY REPORT DATE OF NOTE: JAN 03, 2022@10:28:01 ENTRY DATE: JAN 03, 2022@10:28:01 AUTHOR: NIURKA MILLER EXP COSIGNER: URGENCY: STATUS: COMPLETED $APHDR Reporting Lab: [facility]Y MONTOYA [facility] [CLIA# [id number]] [address] [place] [address] - - - - - - [...] automatically d ocumented from SURGERY package case #[id number] Field (#32) PRINCIPAL PRE-OP DIAGNOSIS, (#.72) OTHER [...] automatically d ocumented from SURGERY package case #[id number] Field (#34) PRINCIPAL POST-OP DIAG, (#.74) OTHER [...] Label: Lucas Meek Paperwork: Lucas Meek Cassette: [id number];..;KALYANI;.;405;[id number] Specimen is labeled: ES bx Received in formalin are several pieces of pale boyd and brown tissue, 1.2 x 0.7 cm in aggregate. Submitted entirely in 1 cassette [id number];..;KALYANI;.;405;[id number] SAW 12/15/2021 Microscopic exam: *+* MODIFIED REPORT *+* (Last modified: JAN 03, 2022@09:30:20 typed by NIURKA WADDELL) DIAGNOSIS: A. 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 Kendell long. TIARA Coombs was notified on 12/21/21. Modified on 01/03/22 to include report from [facility] stating that tumor is NEGATIVE for her2/ matheus amplification. The attending pathologist who signature mansoor ears on this report has reviewed all diagnostic slides and has edited t he gross and/or microscopic portion of this report in rendering the final pathologic diagnosis. [address] [address] CPT: 71937 /emely/ NIURKA Yeung MD Signed Jan 03, 2022@10:28 Performing Laboratory: Surgical Pathology Report Performed By: [facility] [CLIA# [id number]] [address] [place] [facility] [place] [address] $FTR - - - - - [...] - - LUCAS MEEK STANDARD FORM 515 ID:[id number] SEX:M :1950 AGE: 71 LOC: [facility] END PCP: Isatu Todd /emely/ NIURKA MILLER Staff Signed: 01/03/2022 10:28 Dec 21, 2021 11:46 AM LR SURGICAL PATHOLOGY REPORT: STEFANY MILLER E[facility] LINDSAY LOCAL TITLE: LR SURGICAL PATHOLOGY REPORT [facility] STANDARD TITLE: PATHOLOGY REPORT DATE OF NOTE: DEC 21, 2021@11:46:59 ENTRY DATE: DEC 21, 2021@11:46:59 AUTHOR: NIURKA MILLER EXP COSIGNER: URGENCY: STATUS: COMPLETED $APHDR Reporting Lab: [facility] [IA# [id number]] [address] [place] [facility] [place] [address] - - - - - - [...] automatically d ocumented from SURGERY package case #[id number] Field (#32) PRINCIPAL PRE-OP DIAGNOSIS, (#.72) OTHER [...] automatically d ocumented from SURGERY package case #[id number] Field (#34) PRINCIPAL POST-OP DIAG, (#.74) OTHER [...] Label: Lucas Meek Paperwork: Lucas Meek Cassette: [id number];..;KALYANI;.;405;[phone] Specimen is labeled: ES bx Received in formalin are several pieces of pale boyd and brown tissue, 1.2 x 0.7 cm in aggregate. Submitted entirely in 1 cassette [id number];..;KALYANI;.;405;[id number] SAW 12/15/2021 Microscopic exam: DIAGNOSIS: A. 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 Kendell long. TIARA Coombs was notified on 12/21/21. The attending pathologist who signature mansoor ears on this report has reviewed all diagnostic slides and has edited t he gross and/or microscopic portion of this report in rendering the final pathologic diagnosis. [address] [address] CPT: 20492 /emely/ NIURKA Yeung MD Signed Dec 21, 2021@11:46 Performing Laboratory: Surgical Pathology Report Performed By: C[facility]Y MONTOYA [facility] [CLIA# [id number]] [address] [place] [address] $FTR - - - - - [...] - - LUCAS MEEK STANDARD FORM 515 ID:[id number] SEX:M :1950 AGE: 71 LOC: [facility] PCP: Isatu Todd /charmaine Yeung MD Signed: 12/21/2021 11:46 Dec 06, 2021 03:30 PM LR MICROBIOLOGY REPORT: LILLY JOHNSONYao VIVEK MONTOYA [facility] Reporting Lab: [facility] [CLIA# [id number]] [address] [place] [address] Accession [UID]: [id number] [[id number]] Receiv ed: Dec 06, 2021@16:14 Collection sample: BLOOD CUL T BOTTLE(NIRMAL/AERO)Collection date: Dec 06, 2021 15:30 Site/Specimen: BLOOD Provider: JELANI SÁNCHEZ Comment on specimen: LAC Test(s) ordered: BLOOD CULTURE ANAEROBI C....... completed: Dec 12, 2021 06:18 * BACTERIOLOGY FINAL REPORT => Dec 12, 2021 06:1 8 TECH CODE: [id number] Bacteriology Remark(s): NO GROWTH IN 5 DAYS =--=--=--=--=--=--=--=--=--=--=--=--=--= --=--=--=--=--=--=--=--=--=--=--=--=-- Performing Laboratory: Bacteriology Report Performed By: [facility] [CLIA# [id number]] [address] [place] [address] Dec 06, 2021 03:30 PM LR MICROBIOLOGY REPORT: [facility] Reporting Lab: [facility] [CLIA# [id number]] [address] [place] [address] Accession [UID]: [id number] [[id number]] Receiv ed: Dec 06, 2021@16:14 Collection sample: BLOOD CUL T BOTTLE(NIRMAL/AERO)Collection date: Dec 06, 2021 15:30 Site/Specimen: BLOOD Provider: JELANI SÁNCHEZ Comment on specimen: LAC Test(s) ordered: BLOOD CULTURE AEROBIC. ........ completed: Dec 12, 2021 06:17 * BACTERIOLOGY FINAL REPORT => Dec 12, 2021 06:1 7 TECH CODE: [id number] Bacteriology Remark(s): NO GROWTH IN 5 DAYS =--=--=--=--=--=--=--=--=--=--=--=--=--= --=--=--=--=--=--=--=--=--=--=--=--=-- Performing Laboratory: Bacteriology Report Performed By: [facility] [CLIA# [id number]] [address] [place] [address] Encounter Notes: All associated encounter notes This section contains the clinical notes associated to the Encounter. Date/Time Encounter Note(s) Provider Source Dec 15, 2021 08:40 PHARMACY DISCHARGE NOTE: ROXANNE VASQUEZ [facility] TITLE: Discharge Note/Pharmacy [facility] STANDARD TITLE: PHARMACY DISCHARGE NOTE DATE OF NOTE: DEC 15, 2021@08:40 ENTRY DATE: DEC 15, 2021@08:40:18 AUTHOR: ROXANNE VASQUEZ EXP COSIGNER: URGENCY: STATUS: COMPLETED MEEKLUCAS N Discharge to Home. Medication review/reconciliation was performed p rior to discharge through chart review and discussion with the discharging provider. The following is a reconciled list of this patient's medications up on discharge: DISCHARGE MEDICATIONS Active and Recently Outpatient Medicatio ns (including Supplies): Active Outpatient Medications Status 1) ALBUTEROL 90MCG (CFC-F) 200D ORAL INHL INHALE 2 PUFFS ACTIVE BY MOUTH FOUR TIMES DAILY NEEDED FOR BREATHI NG 2) AMLODIPINE BESYLATE 5MG TAB TAKE ONE TABLET B Y MOUTH ACTIVE EVERY DAY FOR BLOOD PRESSURE/HEART, DO NOT TAKE WITH GRAPEFRUIT JUICE 3) CARBOXYMETHYLCELLULOSE NA 0.5%(PF)OP BOB INST ILL ONE ACTIVE DROP IN BOTH EYES FOUR TIMES A DAY FOR DRYNESS 4) CHOLECALCIF 10MCG (D3-400UNIT) TAB TAKE ONE T ABLET BY ACTIVE MOUTH EVERY DAY 5) DICLOFENAC NA 1% TOP GEL APPLY 4 GRAMS TO LOW ER ACTIVE EXTREMITIES TOPICALLY FOUR TIMES DAILY NEEDE D FOR PAIN/INFLAMMATION. *DO NOT EXCEED 16 GRAMS DAILY TO ANY JOINT OF LOWER EXTREMITIES. DO NOT EXCEED 8 GRAMS DAILY TO ANY JOINT OF UPPER EXTREMITIES. DO NOT EXCEED TOTAL DOSE OF 32 GRA MS DAILY OVER ALL JOINTS. 6) FAMOTIDINE 10MG TAB TAKE ONE TABLET BY MOUTH TWICE A ACTIVE (NEW) DAY FOR STOMACH ACID 7) LOSARTAN 25MG TAB TAKE ONE-HALF TABLET BY HANNAH EVERY ACTIVE DAY FOR BLOOD PRESSURE/HEART 8) METFORMIN HCL 500MG 24HR SA TAB TAKE ONE TABL ET BY ACTIVE MOUTH EVERY DAY WITH A MEAL FOR DIABETES 9) OLODATEROL/TIOTROP 2.5MCG/ACTUAT 60D INH INHA LE 2 ACTIVE PUFFS BY MOUTH EVERY DAY FOR BREATHING 10) OMEPRAZOLE 20MG EC CAP TAKE ONE CAPSULE BY M OUTH ACTIVE TWICE A DAY 30 MINUTES BEFORE MEALS FOR STOMACH ACID (TAKE HALF-HOUR BEFORE A MEAL) 11) SERTRALINE HCL 50MG TAB TAKE THREE TABLETS B Y MOUTH ACTIVE EVERY DAY FOR DEPRESSION OR ANXIETY Inactive Outpatient Medications Status 1) AMMONIUM LACTATE 12% LOTION APPLY THIN FILM T OPICALLY EVERY DAY FOR DRY IRRITATED SKIN ON ARMS AND LE GS 2) SALICYLIC ACID 3% SHAMPOO SHAMPOO SMALL AMOUN T TOPICALLY ON MONDAYS, WEDNESDAYS AND FRIDAYS ; MASSAGE INTO SCALP, LET SIT 10 MIN AND RINSE 13 Total Medications No Active Remote Medications for this patient Medication refills requested at discharge Yes [ ] No [x] Home medications returned to pt upon discharge: Yes [x] No [ ] Inpatient multi-dose bulk medications prepared f or discharge: Yes [ ] No [x] - COVID+ Medications provided to patient at discharge: Mariano s [ ] No [x] Qty:1Rx - FAMOTIDINE 10MG TAB New Medications: - FAMOTIDINE 10MG TAB TAKE ONE TABLET BY MOUTH T WICE A DAY FOR STOMACH ACID Changed Medications: - None Discontinued Medications: (Please discard home s upply of medications to minimize confusion) - None Active problems - Computerized Problem List is t he source for the followin. Former smoker 2. 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 Osteoarthritis 4. Psoriasis 5. Spinal stenosis of lumbar region 6. Low back pain 7. Joint pain 8. Primary malignant neoplasm of lung 9. Morbid obesity 10. Benign essential hypertension 11. Chronic obstructive lung disease Allergies: LISINOPRIL Patient's most recent CrCl: 75.44ml/min AST: Collection DT Specimen Test Name Result Units Re f Range 12/07/2021 06:00 PLASMA!! AST(SGOT) 15 U/L 5 - 3 4 ALT: Collection DT Specimen Test Name Result Units Re f Range 12/07/2021 06:00 PLASMA!! ALT(SGPT) 10 U/L 7 - 5 2 Drug-Drug Interactions (via Lexicomp Drug Intera 2021) No significant Drug Interactions requiring manag ement. /emely/ ROXANNE VASQUEZ CLINICAL PHARMACIST Signed: 12/17/2021 14:01
--- OUTSIDE RECORDS SUMMARY | 2022-01-19 08:06 | XMS_ITS ---
DAILY HOSPITALIZATION DATA [facility] Encounter Summary Created on:December 15, 2021 Patient:LUCAS MEEK Sex:Male :1950 Author Organization [facility] Address [address] [place] [id number] Support Name Relationship Address Phone YUSRA MEEK Unavailable [address] [place] [address] YUSRA MEEK Unavailable [address] [facility] [place] [address] CLAY MOSLEY Unavailable Unavailable SJ SANTACRUZ Unavailable [...] MEDICARE MEDICARE PART Jun 18, PART A [id number] DO KALYANI PATIENT (WNR) (M) A 2016 13A 1 UGLAS MEDICARE MEDICARE PART Jun 18, PART A [id number] DO KALYANI PATIENT (WNR) (M) A 2017 VH81 2 LAS MEDICARE MEDICARE PART Jun 18, PART B [id number] DO KALYANI PATIENT (WNR) (M) B 2016 13A 1 UGLAS MEDICARE MEDICARE PART Jun 18, PART B [id number] DO KALYANI PATIENT (WNR) (M) B 2017 VH81 2 UGLAS UNITED MEDICARE MCR(Jun 18 [id number] Luz MEEK PATIENT HEALTHCARE ADVANTAGE NR) 2021 37 0 [facility] (WNR) Selected Encounter This section includes the information on [place] at [place] for the Encounter. Date/Time Encounter Type Encounter Description Reason Provider Source Dec 15, 2021 08:00 Inpatient Visit DAILY HOSPITALIZATION DATA AM [facility] Encounter Template Text not used by [place] [...] AM AMBUL[place]ORY - N[place] [facility] Jan 06, 2022 02:00 PM [place] [facility] Jan 10, 2022 11:30 AM [facility] - [facility] Jan 24, 2022 08:00 [place] [facility] Feb 21, 2022 10:00 AM [place]UL[place]ORY [place] [facility] Mar 21, 2022 10:30 AM [facility] - MEDICINE [facility] Active, Pending, and Scheduled [...] The data comes from all [place] treatment [facility]. Test Date/Time Test Type Test Details Facility Name October 31, 2021 07:37 AM Consult Order [facility]-EGD [facility] Cons Graphotype Operator's Choice November 15, 2021 10:37 AM Consult Order [facility]ODIAT[facility] Cons Graphotype Operator's Choice Dec 06, 2021 12:52 PM [place]acy [place] Infusion Order [facility] Dec 06, 2021 03:24 PM Pharmacy - [place] [facility] Dec 06, 2021 03:40 PM Pharmacy [place] Order [facility] Dec 15, 2021 08:41 AM Consult Order SPEECH PATHOLOGY [place] OUTPATIENT Cons [facility] Graphotype Operator's Choice Jan 15, 2022 10:08 PM Consult Order [facility] CARE-PALLIATIVE CARE Cons Graphotype Operator's Choice Lab Results: +/- 30 days of [...] Reference Range Comment Dec 15, 2021 [place] P4 GLU,BUN,CREAT,LYTES,CA Speci men Type: PLASMA 06:43 AM [facility] Comment: Tests performed on Zendrive (405) SN:[id number] Ordering Provid er: ISATU TODD Report Released Date/Time: Dec 11, 2021 07:42 AM Reporting Lab: [facility] [address] [facility] [address] Performing Lab: [facility] [address] [facility] [address] UREA NITROGEN 9 7-25 SODIUM 137 135-145 POTASSIUM 3.8 3.5-5.0 CHLORIDE 105 100-110 CARBON DIOXIDE 26 20-30 ANION GAP 6 4-16 GLUCOSE 102 H 65-100 CREATININE 0.64 0.5-1.5 CALCIUM 8.1 L 8.5-10.5 eGFR(CKD-EPI 2020) >90.0 >60 Dec 15, 2021 06:43 AM [facility] CBC PROFILE Sp ecimen Type: BLOOD No comment enter ed. Ordering Provid er: ISATU TODD Report Released Date/Time: Dec 10, 2021 07:22 AM Reporting Lab: [facility] [address] [facility] [address] Performing Lab: [facility] [address] [facility] [address] WBC 5.7 4.5-11.0 RBC 4.22 L 4.23-5.66 [...] CYTOGENETIC Specimen Type: ESOPHAGUS 02:59 PM [facility]) Comment: ~For T est: CYTOGENETIC FISH([facility]) ~FISH HER 2 NUE, FFPE See full report in [employer] Image display viewer/tab#LAB-Reference Ordering Provid er: NIURKA MILLER Report Released Date/Time: Dec 21, 2021 12:11 PM Reporting Lab: [facility] [address] [facility] [address] Performing Lab: [facility] CYTOGENETIC FISH([facility]) comment Dec 14, 2021 [facility] P4 GLU,BUN,CREAT,LYTES,CA Speci men Type: PLASMA 06:27 AM [facility] Comment: Tests performed on Zendrive (405) SN:[id number] Ordering Provid er: ISATU TODD Report Released Date/Time: Dec 11, 2021 07:42 AM Reporting Lab: [facility] [address] [facility] [address] Performing Lab: [facility] [address] [facility] [address] UREA NITROGEN 10 7-25 SODIUM 137 135-145 POTASSIUM 4.0 3.5-5.0 CHLORIDE 104 100-110 CARBON DIOXIDE 25 20-30 ANION GAP 8 4-16 GLUCOSE 99 65-100 CREATININE 0.67 0.5-1.5 CALCIUM 8.2 L 8.5-10.5 eGFR(CKD-EPI 2020) >90.0 >60 Dec 14, 2021 06:27 AM [facility] CBC PROFILE Sp ecimen Type: BLOOD No comment enter ed. Ordering Provid er: ISATU TODD Report Released Date/Time: Dec 10, 2021 07:22 AM Reporting Lab: [facility] [address] [facility] [address] Performing Lab: [facility] [address] [facility] [address] WBC 6.0 4.5-11.0 RBC 4.29 4.23-5.66 HGB [...] GLU,BUN,CREAT,LYTES,CA Speci men Type: PLASMA 06:34 AM [facility] Comment: Tests performed on Zendrive (405) SN:[id number] Ordering Provid er: ISATU TODD Report Released Date/Time: Dec 11, 2021 07:42 AM Reporting Lab: [facility] [address] [facility] [address] Performing Lab: [facility] [address] [facility] [address] UREA NITROGEN 12 7-25 SODIUM 136 135-145 POTASSIUM 3.9 3.5-5.0 CHLORIDE 105 100-110 CARBON DIOXIDE 24 20-30 ANION GAP 7 4-16 GLUCOSE 102 H 65-100 CREATININE 0.66 0.5-1.5 CALCIUM 8.3 L 8.5-10.5 eGFR(CKD-EPI 2020) >90.0 >60 Dec 13, 2021 06:34 AM [facility] CBC PROFILE Sp ecimen Type: BLOOD No comment enter ed. Ordering Provid er: ISATU TODD Report Released Date/Time: Dec 10, 2021 07:22 AM Reporting Lab: [facility] [address] [facility] [address] Performing Lab: [facility] [address] [facility] [address] WBC 5.6 4.5-11.0 RBC 4.28 4.23-5.66 HGB [...] GLU,BUN,CREAT,LYTES,CA Speci men Type: PLASMA 06:21 AM [facility] Comment: Tests performed on Zendrive (405) SN:[id number] Ordering Provid er: ISATU TODD Report Released Date/Time: Dec 11, 2021 07:42 AM Reporting Lab: [facility] [address] [facility] [address] Performing Lab: [facility] [address] [facility] [address] UREA NITROGEN 11 7-25 SODIUM 139 135-145 POTASSIUM 4.1 3.5-5.0 CHLORIDE 107 100-110 CARBON DIOXIDE 24 20-30 ANION GAP 8 4-16 GLUCOSE 110 H 65-100 CREATININE 0.70 0.5-1.5 CALCIUM 8.3 L 8.5-10.5 eGFR(CKD-EPI 2020) >90.0 >60 Dec 12, 2021 06:21 AM [facility] CBC PROFILE Sp ecimen Type: BLOOD No comment enter ed. Ordering Provid er: ISATU TODD Report Released Date/Time: Dec 10, 2021 07:22 AM Reporting Lab: [facility] [address] [facility] [address] Performing Lab: [facility] [address] [facility] [address] WBC 5.5 4.5-11.0 RBC 4.37 4.23-5.66 HGB [...] 0.00 0-0 Dec 12, 2021 06:00 AM [facility]T [facility] MAGNESIUM Sp ecimen Type: PLASMA Comment: Testin g Performed on Zendrive (405) SN:[id number] Ordering Provid er: ISATU TODD Report Released Date/Time: Dec 12, 2021 08:24 AM Reporting Lab: [place] [facility] [address] [facility] [address] Performing Lab: [employer] [place] [employer] [facility] [facility] [address] [facility] [address] MAGNESIUM 1.8 1.6-2.6 Dec 12, 2021 06:00 AM [facility] [place] [facility] PHOSPHORUS Sp ecimen Type: PLASMA Comment: Testin g Performed on Zendrive (405) SN:[id number] Ordering Provid er: ISATU TODD Report Released Date/Time: Dec 12, 2021 08:24 AM Reporting Lab: [place] [facility] [address] [facility] [address] Performing Lab: [place] [employer] [place] [facility] [address] [facility] [address] PHOSPHORUS 3.1 2.5-5.0 Dec 11, 2021 06:15 AM [employer] [place] [employer] [place] [facility]ula[facility] ELECTROLYTES Sp ecimen Type: PLASMA Comment: Tests performed on Zendrive (405) SN:[id number] Ordering Provid er: ISATU TODD Report Released Date/Time: Dec 10, 2021 07:22 AM Reporting Lab: [place] [facility] [address] [facility] [address] Performing Lab: [place] [facility] [address] [facility] [address] SODIUM 137 135-145 POTASSIUM 4.3 3.5-5.0 CHLORIDE 108 100-110 CARBON DIOXIDE 20 20-30 ANION GAP 9 4-16 Dec 11, 2021 06:15 AM [place] [facility] CBC PROFILE Sp ecimen Type: BLOOD Comment: Result s checked Ordering Provid er: ISATU TODD Report Released Date/Time: Dec 10, 2021 07:22 AM Reporting Lab: [place] OMEGAT [facility] [address] [facility] [address] Performing Lab: [place] [facility] [facility] [address] [facility] [address] WBC 5.8 4.5-11.0 RBC 4.37 4.23-5.66 HGB [...] 0.00 0-0 Dec 11, 2021 06:00 AM [facility] PHOSPHORUS Sp ecimen Type: PLASMA Comment: Tests performed on Zendrive (348) SN:[id number] Results checked Ordering Provid er: ISATU TODD Report Released Date/Time: Dec 11, 2021 07:44 AM Reporting Lab: [facility] [place] [facility] [address] [facility] [address] Performing Lab: [place] OMEGAT ILMROC [address] [facility] [address] PHOSPHORUS 3.0 2.5-5.0 Dec 10, 2021 08:05 AM [place] [facility] MAGNESIUM Sp ecimen Type: PLASMA Comment: [place] [id number] on Dec 10, 2021@08:31 Tests performed on Zendrive (405) SN:[id number] Ordering Provid er: ISATU TODD Report Released Date/Time: Dec 10, 2021 07:22 AM Reporting Lab: [place] [facility] [address] [place] [facility] [place] [address] Performing Lab: [place] [facility] [address] [place] [facility] [place] [address] MAGNESIUM 1.7 1.6-2.6 Dec 10, 2021 08:05 AM [place] [facility] PHOSPHORUS Sp ecimen Type: PLASMA Comment: [place] [id number] on Dec 10, 2021@08:31 Tests performed on Zendrive (405) SN:[id number] Ordering Provid er: ISATU TODD Report Released Date/Time: Dec 10, 2021 07:22 AM Reporting Lab: [place] [facility] [address] [place] [facility] [place] [address] Performing Lab: [place] [facility] [address] [place] [facility] [place] [address] PHOSPHORUS 1.8 L 2.5-5.0 Dec 10, 2021 08:05 AM [place] UREA NITROGEN Specimen Type: PLASMA [facility] Comment: [place] [id number] on Dec 10, 2021@08:31 Tests performed on Zendrive (405) SN:[id number] Ordering Provid er: ISATU TODD Report Released Date/Time: Dec 10, 2021 07:22 AM Reporting Lab: [place] [facility] [address] [place] [facility] [place] [address] Performing Lab: [place] [facility] [address] [place] [facility] [place] [address] UREA NITROGEN 8 7-25 Dec 10, 2021 08:05 AM [place] [facility] CALCIUM Sp ecimen Type: PLASMA Comment: [place] [id number] on Dec 10, 2021@08:31 Tests performed on Zendrive (405) SN:[id number] Ordering Provid er: ISATU TODD Report Released Date/Time: Dec 10, 2021 07:22 AM Reporting Lab: [place] [facility] [address] [facility] [address] Performing Lab: [place] [facility] [address] [facility] [address] CALCIUM 8.3 L 8.5-10.5 Dec 10, 2021 08:05 AM [place] [facility] ELECTROLYTES Sp ecimen Type: PLASMA Comment: [place] [id number] on Dec 10, 2021@08:31 Tests performed on Pham Jackpocket (405) SN:[id number] Ordering Provid er: ISATU TODD Report Released Date/Time: Dec 10, 2021 07:22 AM Reporting Lab: [place] [facility] [address] [facility] [address] Performing Lab: [place] [facility] [address] [facility] [address] SODIUM 139 135-145 POTASSIUM 3.7 3.5-5.0 CHLORIDE 107 100-110 CARBON DIOXIDE 24 20-30 ANION GAP 8 4-16 Dec 10, 2021 08:05 [place] CREATININE WITH eGFR Specime n Type: PLASMA AM [facility] PANEL Comment: [place] [id number] on Dec 10, 2021@08:31 Tests performed on Pham Jackpocket (405) SN:[id number] Ordering Provid er: ISATU TODD Report Released Date/Time: Dec 10, 2021 07:22 AM Reporting Lab: [place] [facility] [address] [facility] [address] Performing Lab: [place] [facility] [address] [facility] [address] CREATININE 0.78 0.5-1.5 eGFR(CKD-EPI 2020) >90.0 >60 Dec 10, 2021 08:05 AM [place] [facility] CBC PROFILE Sp ecimen Type: BLOOD No comment enter ed. Ordering Provid er: ISATU TODD Report Released Date/Time: Dec 10, 2021 07:22 AM Reporting Lab: [place] [facility] [address] [facility] [address] Performing Lab: [place] [facility] [address] [facility] [address] WBC 7.0 4.5-11.0 RBC 4.54 4.23-5.66 HGB [...] 0.00 0-0 Dec 10, 2021 08:05 AM [place] [facility] GLUCOSE Sp ecimen Type: PLASMA Comment: [place] [id number] on Dec 10, 2021@08:31 Tests performed on Zendrive (405) SN:[id number] Ordering Provid er: ISATU TODD Report Released Date/Time: Dec 10, 2021 07:22 AM Reporting Lab: [place] [facility] [address] [facility] [address] Performing Lab: [place] [facility] [address] [facility] [address] GLUCOSE 144 H 65-100 Dec 09, 2021 06:46 AM [place] [employer] MAGNESIUM Sp ecimen Type: PLASMA Comment: Tests performed on Zendrive (405) SN:[id number] Ordering Provid er: ISATU TODD Report Released Date/Time: Dec 08, 2021 10:23 AM Reporting Lab: [place] [facility] [address] [facility] [address] Performing Lab: [facility] [address] [facility] [address] MAGNESIUM 1.6 1.6-2.6 Dec 09, 2021 [facility] P4 GLU,BUN,CREAT,LYTES,CA Speci men Type: PLASMA 06:46 AM [facility] Comment: Tests performed on Zendrive (405) SN:[id number] Ordering Provid er: ISATU TODD Report Released Date/Time: Dec 08, 2021 05:00 PM Reporting Lab: [facility] [address] [facility] [address] Performing Lab: [facility] [address] [facility] [address] UREA NITROGEN 6 L 7-25 SODIUM 134 L 135-145 POTASSIUM 3.7 3.5-5.0 CHLORIDE 103 100-110 CARBON DIOXIDE 23 20-30 ANION GAP 8 4-16 GLUCOSE 112 H 65-100 CREATININE 0.70 0.5-1.5 CALCIUM 8.1 L 8.5-10.5 eGFR(CKD-EPI 2020) >90.0 >60 Dec 09, 2021 06:46 AM [facility] CBC PROFILE Sp ecimen Type: BLOOD No comment enter ed. Ordering Provid er: ISATU TODD Report Released Date/Time: Dec 08, 2021 05:00 PM Reporting Lab: [facility] [address] [facility] [address] Performing Lab: [facility] [address] [facility] [address] WBC 7.1 4.5-11.0 RBC 4.40 4.23-5.66 HGB [...] 0.00 0-0 Dec 08, 2021 06:39 AM [place] [employer] T [facility] MAGNESIUM Sp ecimen Type: PLASMA Comment: Testin g Performed on Zendrive (405) SN:[id number] Ordering Provid er: ISATU TODD Report Released Date/Time: Dec 07, 2021 10:32 AM Reporting Lab: [facility] [address] [facility] [address] Performing Lab: [facility] [address] [facility] [address] MAGNESIUM 1.5 L 1.6-2.6 Dec 08, 2021 [place] [employer] T P4 GLU,BUN,CREAT,LYTES,CA Speci men Type: PLASMA 06:39 AM [facility] Comment: Testin g Performed on Zendrive (405) SN:[id number] Ordering Provid er: ISATU TODD Report Released Date/Time: Dec 07, 2021 10:32 AM Reporting Lab: [employer] T [facility] [address] [facility] [address] Performing Lab: [facility] [address] [facility] [address] UREA NITROGEN 6 L 7-25 SODIUM 136 135-145 POTASSIUM 3.3 L 3.5-5.0 CHLORIDE 104 100-110 CARBON DIOXIDE 22 20-30 ANION GAP 10 4-16 GLUCOSE 133 H 65-100 CREATININE 0.76 0.5-1.5 CALCIUM 8.4 L 8.5-10.5 eGFR(CKD-EPI 2020) >90.0 >60 Dec 08, 2021 06:39 AM [place] [employer] T [facility] CBC PROFILE Sp ecimen Type: BLOOD No comment enter ed. Ordering Provid er: ISATU TODD Report Released Date/Time: Dec 07, 2021 10:32 AM Reporting Lab: [facility] [address] [facility] [address] Performing Lab: [facility] [address] [facility] WBC 8.4 4.5-11.0 RBC 4.75 4.23-5.66 HGB [...] ABSOLUTE NRBC 0.00 0-0 Dec 07, 2021 06:42 [facility] LIVER PROFILE Specimen Typ e: PLASMA AM [facility] Comment: Tests performed on Zendrive (405 SN:[id number] Ordering Provid er: PORFIRIO WALTERS Report Released Date/Time: Dec 06, 2021 06:57 PM Reporting Lab: [facility] [address] [facility] [address] Performing Lab: [facility] [address] [facility] [address] PROTEIN, TOTAL 5.7 L 6.0-8.5 ALBUMIN 2.4 L 3.2-5.0 BILIRUBIN, TOTAL 0.4 0.2-1.2 ALKALINE PHOSPHATASE 109 40-150 ALT(SGPT) 10 7-52 AST(SGOT) 15 5-34 FIB-4 SCORE 1.92 <2.67 Dec 07, 2021 [facility] P4 GLU,BUN,CREAT,LYTES,CA Speci men Type: PLASMA 06:42 AM [facility] Comment: Tests performed on Zendrive (405) SN:[id number] Ordering Provid er: PORFIRIO WALTERS Report Released Date/Time: Dec 06, 2021 06:57 PM Reporting Lab: [place] [facility] [address] [facility] [address] Performing Lab: [place] [facility] [address] [facility] [address] UREA NITROGEN 9 7-25 SODIUM 135 135-145 POTASSIUM 3.5 3.5-5.0 CHLORIDE 103 100-110 CARBON DIOXIDE 22 20-30 ANION GAP 10 4-16 GLUCOSE 92 65-100 CREATININE 0.73 0.5-1.5 CALCIUM 8.0 L 8.5-10.5 eGFR(CKD-EPI 2020) >90.0 >60 Dec 07, 2021 06:42 AM [place] CBC PROFILE Specimen Type: BLOOD [facility] No comment enter ed. Ordering Provid er: PORFIRIO WALTERS Report Released Date/Time: Dec 06, 2021 06:57 PM Reporting Lab: [place] [facility] [address] [facility] [address] Performing Lab: [facility] [address] [facility] [address] WBC 5.7 4.5-11.0 RBC 4.15 L 4.23-5.66 [...] VAM[facility]OC %) AUTOMATED Comment: Tests performed on Zendrive (405) SN:[id number] Ordering Provid er: ISATU TODD Report Released Date/Time: Dec 07, 2021 10:28 AM Reporting Lab: [place] [facility] [address] [facility] [address] Performing Lab: [place] [facility] [address] [facility] [address] RETICULOCYTES (%) AUTOMATED 1.23 0. 6-2.0 RETICULOCYTES (ABS) AUTOMATED 0.052 0.030-0.090 Dec 06, 2021 09:45 [place] MRSA SURVL NARES Specimen Ty pe: NARES PM [facility] DNA No comment enter ed. Ordering Provid er: ALVARO VARGHESE Report Released Date/Time: Dec 07, 2021 02:20 AM Reporting Lab: [place] [facility] [address] [facility] [address] Performing Lab: [place] [facility] [address] [facility] [address] MRSA SURVL NARES DNA NEGATIVE NEGATIVE Dec 06, 2021 06:00 [place] URINALYSIS W/REFLEX TO Speci men Type: URINE PM [facility] CULTURE No comment enter ed. Ordering Provid er: JELANI SÁNCHEZ Report Released Date/Time: Dec 06, 2021 11:57 AM Reporting Lab: [place] [facility] [address] [facility] [address] Performing Lab: [place] [facility] [address] [facility] [address] URINE COLOR Arlin YELLOW SPECIFIC GRAVITY 1.029 [...] 21, RIVER VARIANT Comment: https://www.cdc.gov/coronavirus/2019-ncov/cases-updates/variant- surveillance/variant-info.html The [employer] SARS CoV 2 embraase Research Assay-GX is a next-generation sequencing (NGS) assa 2021 [facility] SEQUENCING y that determine s the complete genome sequence of the SARS-CoV-2 virus. The assay contains variant-tolerant primers to broaden and improve the coverage for variant detection and increase the sensitivity 12:00 [facility] PNL(WH) of the panel to enable detection from lower viral titer samples. The assay is run on the [employer] Sequencer, which performs automated library preparation, sequencing, analysis, and reporting. PM The sequence an alysis includes determination of viral phylogenetic lineage by comparison to the reference strain Wu[place]-Hu-1, GenBank: [id number]. Sequence determination may not be possible owing [...] Dec 06, 2021 01:13 PM Reporting Lab: [facility] [address] [facility] [address] Performing Lab: [facility] [address] [facility] [address] SARS-CoV-2 CLADE() 22C (OMICRON) SARS-CoV-2 LINEAGE() BA.2.12.1 Dec 06, 2021 12:00 [facility] COVID-19 AG SCREEN Specimen Type: NASAL CAVITY PM [facility] PANEL BINAX(405) Comment: Testi ng Performed By: Mike Briscoe Ordering Provid er: JELANI SÁNCHEZ Report Released Date/Time: Dec 08, 2021 08:23 AM Reporting Lab: [facility] [address] [facility] [address] Performing Lab: [facility] [address] [facility] [address] COVID-19 AG SCRN(wrj BINAX) POSITIVE HH NE G Dec 06, 2021 12:00 PM [facility] LIVER PROFILE Sp ecimen Type: PLASMA Comment: Testin g Performed on Pham Physicist Nuclear (405) SN:[id number] Ordering Provid er: JELANI SÁNCHEZ Report Released Date/Time: Dec 06, 2021 11:57 AM Reporting Lab: [facility] [address] [facility] [address] Performing Lab: [facility] [address] [facility] [id number] PROTEIN, TOTAL 6.6 6.0-8.5 ALBUMIN 2.8 L 3.2-5.0 BILIRUBIN, TOTAL 0.6 0.2-1.2 ALKALINE PHOSPHATASE 134 40-150 ALT(SGPT) 13 7-52 AST(SGOT) 18 5-34 FIB-4 SCORE 1.94 <2.67 Dec 06, 2021 [facility] GLU,BUN,CREAT,LYTES,CA Speci men Type: PLASMA 12:00 PM [facility] Comment: Testin g Performed on Pham Physicist Nuclear (405) SN:[id number] Ordering Provid er: JELANI SÁNCHEZ Report Released Date/Time: Dec 06, 2021 11:57 AM Reporting Lab: [place] [facility] [address] [facility] [address] Performing Lab: [facility] [place] [facility] [address] [facility] [address] UREA NITROGEN 13 7-25 SODIUM 138 135-145 POTASSIUM 3.8 3.5-5.0 CHLORIDE 103 100-110 CARBON DIOXIDE 23 20-30 ANION GAP 12 4-16 GLUCOSE 105 H 65-100 CREATININE 0.90 0.5-1.5 CALCIUM 8.7 8.5-10.5 eGFR(CKD-EPI 2020) >90.0 >60 Dec 06, 2021 12:00 PM [facility] TROPONIN II Sp ecimen Type: PLASMA Comment: Tests performed on Pham Physicist Nuclear (405) SN:[id number] Ordering Provid er: JELANI SÁNCHEZ Report Released Date/Time: Dec 06, 2021 11:57 AM Reporting Lab: [facility] [address] [facility] [address] Performing Lab: [facility] [address] [facility] [address] TROPONIN II 0.03 0.00-0.29 Dec 06, 2021 12:00 PM [facility] BNP(P[facility] Sp ecimen Type: PLASMA Comment: Tests performed on Pham Physicist Nuclear (405) SN:[id number] Ordering Provid er: JELANI SÁNCHEZ Report Released Date/Time: Dec 06, 2021 11:57 AM Reporting Lab: [facility] [address] [facility] [address] Performing Lab: [facility] [address] [facility] [address] BNP(P) 224.8 H 10-100 Dec 06, 2021 [facility] [place] COVID-19+FLU/RSV DIAGNOSTIC Spe cimen Type: NASOPHARYNX 12:00 PM [facility] PANEL(405) Comment: Tests performed on Stamp.it Genexpert (405) Critical results called to and read back by: ALESHIA WILKINSON RN 12/06/21 @ 1312 Ordering Provid er: JELANI SÁNCHEZ Report Released Date/Time: Dec 06, 2021 11:57 AM Reporting Lab: [facility] [address] [facility] [address] Performing Lab: [place] [facility] [address] [facility] [address] FLU A(PCR) NEGATIVE NEGATIVE FLU B(PCR) NEGATIVE NEGATIVE RSV(PCR) NEGATIVE NEGATIVE COVID-19(HCW-gsl-DIYTHYCHI) DETECTED HH NO T DETECTED Dec 06, 2021 12:00 PM [facility] PRO[facility] Sp ecimen Type: BLOOD No comment enter ed. Ordering Provid er: JELANI SÁNCHEZ Report Released Date/Time: Dec 06, 2021 11:57 AM Reporting Lab: [facility] [address] [facility] [address] Performing Lab: [facility] [address] [facility] [address] WBC 7.2 4.5-11.0 RBC 4.86 4.23-5.66 HGB [...] 99 136/67 18 /min 98 % 0 MEQUON 2021 11:35 /min mm[Hg] [facility] Nov 30, 0 MEQUON 2021 08:00 [facility] Dec 15, 96.9 F 93 134/71 18 /min 97 % 0 MEQUON 2021 05:01 /min mm[Hg] [facility] Social History: Smoking Status (Most current) and [...] QUIT TOBACCO USE > 7 YEARS AGO [facility] Tobacco Use History This section includes a history of the smoking, or tobacco- related health factors, that were collected on or before the date of the Encounter. The data comes from the [place] facility where the Encounter took place. Date/Time Smoking Status/Tobacco Use Comment [facility] Apr 01, 2020 01:16 PM QUIT TOBACCO USE 1-7 YEARS AGO [facility] Mar 24, 2020 03:00 PM QUIT TOBACCO USE 1-7 YEARS AGO [facility] Feb 21, 2019 04:11 PM QUIT TOBACCO USE 1-7 YEARS AGO [facility] Feb 20, 2019 03:38 PM QUIT TOBACCO USE 1-7 YEARS AGO [facility] Feb 03, 2019 09:50 AM QUIT TOBACCO USE 1-7 YEARS AGO [facility] May 25, 2016 11:53 PM QUIT TOBACCO USE IN PAST YEAR [facility] May 23, 2016 06:57 PM QUIT TOBACCO USE > 7 YEARS AGO [facility] May 19, 2016 03:55 PM QUIT TOBACCO USE IN PAST YEAR [facility] May 19, 2016 10:29 AM QUIT TOBACCO USE 1-7 YEARS AGO [facility] May 01, 2016 07:26 PM QUIT TOBACCO USE IN PAST YEAR [facility] May 01, 2016 03:11 PM QUIT TOBACCO USE IN PAST YEAR [facility] May 01, 2016 11:19 AM QUIT TOBACCO USE IN PAST YEAR [facility] Mar 16, 2016 12:50 PM V1-PT DECLINES REF TO TOBACCO [facility] CESS PRGM Mar 16, 2016 12:50 PM V1-PT THINKING ABOUT QUIT [facility] TOBACCO USE Aug 12, 2015 08:48 AM CURRENT SMOKER [facility] Radiology Reports: +/- 30 days of the [...] PM MRI ABDOMEN W/WO CONTRAST: MARYELLEN LONG [facility] LUCAS MEEK N [id number] -1950 [facility] Exm Date: DEC 13, 2021@12:57 Req Phys: ISATU TODD Loc: OP Unknown/0 12-15-2021@13:20 Img Loc: MRI IMAGING (OOS) Service: [facility]ZGENERAL MEDICINE (Case [id number] COMPLETE) MRI ABDOMEN W/WO CONTRAST (M RI Detailed) CPT:66353 Reason for Study: further characterization of a [...] new lyphadenopathy REQUESTING MD: Isatu Todd PAGER: [phone] PHONE: [phone] Weight: 232.2 lb [105.32 kg] (12/12/2021 05:00) [...] patient will need to arrange for a line driver to take him/her home after the [...] 15, 2021 Date Verified: DEC 15, 2021 [employer] E-Sig:/EMELY/MARYELLEN LONG Report: MRI ABDOMEN W/WO CONTRAST [...] MALIGNANCY Primary Interpreting Staff: Staff AMELIA THOMAS ([employer]) / Dec 10, 2021 09:[address] ABDOMEN & PELVIS: RADIOLOGY,OUTSIDE [facility] [place] LUCAS MEEK N [id number] -1950 M SERVICE [facility] Ex Date: DEC 10, 2021@09:30 Req Phys: ISATU TODD E Josseline Loc: 1S MED/12-10@10:57 Img Loc: CT SCAN (OOS) Service: [facility] (Case [id number] COMPLETE) CT ABD & PELVIS WITHOUT CONT RAST (CT Detailed) CPT:14969 Reason for Study: 71 yo male with [...] RADIOLOGY [phone] to speak to the appropriate master technician. Report Status: Verified Date Reported: DEC 10, 2021 Date Verified: DEC 10, 2021 [employer] E-Sig: Report: EXAM: CT abdomen and pelvis [...] ph nodes. READING PHYSICIAN: Ramone Munoz D.O. [phone] 12/10/2021 10:55 EDT [facility] National Teleradiology Program [phone] (For Medical Practitioner Use Only ) [address], [facility] [address] [place] [address] Attention Patients / Veterans: If you have ques tions or concerns about these test results, please contact your o rdering provider or primary care team. Primary Diagnostic Code: SIGNIFICANT ABNORMALIT Y, ATTN NEEDED Primary Interpreting Staff: RADIOLOGY,OUTSIDE SERVICE, Staff Physician / Dec 09, 2021 07:34 AM BASW (MODIFIED): JESSIE CHENEY [facility] [place] LUCAS MEEK N [id number] -1950 [facility] Ex Date: DEC 09, 2021@07:34 Req Phys: ISATU TODD Pat Loc: 1S MED/12-09@11:26 Img Loc: XRAY (OOS) Service: [facility] MEDICINE (Case [id number] COMPLETE) BASW (MODIFIED) (EUNICE Alex d) CPT:17394 Contrast Media : Barium Reason for Study: dysphagia ?esophageal spasm Clinical History: Report Status: Verified Date Reported: DEC 09, 2021 Date Verified: DEC 09, 2021 [employer] E-Sig:/ES/JESSIE CHENEY Report: BASW (MODIFIED) , 12/09/2021 [...] REQUIRED Primary Interpreting Staff: JESSIE CHENEY, RADIOLOGIST ([employer]) /TLC Dec 06, 2021 12:[address] CHEST (INCLUDES ADRENALS): JESSIE CHENYE LUCAS LARES [id number] -1950 M [facility] Exm Date: DEC 06, 2021@12:59 Req Phys: JELANI SÁNCHEZ Pat Loc: [facility] ED DAYS M 1RD (Req'g Loc) Img Loc: CT SCAN (OOS) Service: Unknown (Case [id number] COMPLETE) CT THORAX W/O CONT (CT Detai led) CPT:24933 Reason for Study: Opacification right chest Clinical History: No contrast allergy BUN: 13 (12/06/21 12:00) CREATI: 0.90 (12/06/21 12:00) eGFR 05/16/21 09:43 52 L Weight: 232.6 lb [105.51 kg] (12/06/2021 11:40) BODY MASS INDEX - NO HEIGHTS FOUND Pager number: [phone] STAT orders MUST be called t o RADIOLOGY [phone] to speak to the appropriate master technician. Indications - Other: Opacification right chest, covid positive, lung cancer histo Report Status: Verified Date Reported: DEC 06, 2021 Date Verified: DEC 06, 2021 [employer] E-Sig:/ES/JESSIE CHENEY Report: CT THORAX W/O CONT [...] REQUIRED Primary Interpreting Staff: JESSIE CHENEY, RADIOLOGIST ([employer]) Primary Interpreting Resident: PRINCE CHAMPION, Resident /BR Dec 06, 2021 11:58 AM CHEST SINGLE VIEW: JESSIE CHENEYLUCAS N [id number] -1950 M [facility] Exm Date: DEC 06, 2021@11:58 Req Phys: JELANI SÁNCHEZ Pat Loc: [facility] ED DAYS M 1RD (Req'g Loc) Img Loc: XRAY (OOS) Service: Unknown (Case [id number] COMPLETE) CHEST SINGLE VIEW (RAD Detai led) CPT:52369 Proc Modifiers : PORTABLE EXAM Reason for Study: SOB, home covid test positive Clinical History: Report Status: Verified Date Reported: DEC 06, 2021 Date Verified: DEC 06, 2021 [employer] E-Sig:/ES/JESSIE CHENEY Report: Exam type: Chest x-ray [...] REQUIRED Primary Interpreting Staff: JESSIE CHENEY, RADIOLOGIST ([employer]) /TLC Pathology Reports: +/- 30 days of [...] [place] LOCAL TITLE: LR SURGICAL PATHOLOGY REPORT [facility] STANDARD TITLE: PATHOLOGY REPORT DATE OF NOTE: JAN 03, 2022@10:28:01 ENTRY DATE: JAN 03, 2022@10:28:01 AUTHOR: NIURKA MILLER EXP COSIGNER: URGENCY: STATUS: COMPLETED $APHDR Reporting Lab: [facility] [CLIA# [id number]] [address] [place] [address] - - - - - - [...] automatically d ocumented from SURGERY package case #[id number] Field (#32) PRINCIPAL PRE-OP DIAGNOSIS, (#.72) OTHER [...] automatically d ocumented from SURGERY package case #[id number] Field (#34) PRINCIPAL POST-OP DIAG, (#.74) OTHER [...] Label: Lucas Meek Paperwork: Lucas Meek Cassette: [id number];..;KALYANI;.;405;[phone] Specimen is labeled: ES bx Received in formalin are several pieces of pale boyd and brown tissue, 1.2 x 0.7 cm in aggregate. Submitted entirely in 1 cassette [id number];..;KALYANI;.;405;[id number] SAW 12/15/2021 Microscopic exam: *+* MODIFIED REPORT *+* (Last modified: JAN 03, 2022@09:30:20 typed by NIURKA WADDELL) DIAGNOSIS: A. 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 Kendell long. TIARA Coombs was notified on 12/21/21. Modified on 01/03/22 to include report from [facility] stating that tumor is NEGATIVE for her2/ matheus amplification. The attending pathologist who signature mansoor ears on this report has reviewed all diagnostic slides and has edited t he gross and/or microscopic portion of this report in rendering the final pathologic diagnosis. [address] [address] CPT: 54268 /emely/ NIURKA Yeung MD Signed Jan 03, 2022@10:28 Performing Laboratory: Surgical Pathology Report Performed By: [facility] [CLIA# [id number]] [address] [place] [address] $FTR - - - - - [...] - - LUCAS MEEK STANDARD FORM 515 ID:[id number] SEX:M :1950 AGE: 71 LOC: SDM END PCP: Isatu Todd /emely/ NIURKA MILLER Staff Signed: 01/03/2022 10:28 Dec 21, 2021 11:46 AM LR SURGICAL PATHOLOGY REPORT: STEFANY MILLER [facility] [place] LOCAL TITLE: LR SURGICAL PATHOLOGY REPORT [facility] STANDARD TITLE: PATHOLOGY REPORT DATE OF NOTE: DEC 21, 2021@11:46:59 ENTRY DATE: DEC 21, 2021@11:46:59 AUTHOR: NIURKA MILLER EXP COSIGNER: URGENCY: STATUS: COMPLETED $APHDR Reporting Lab: [facility] [CLIA# [id number]] [address] [facility] [place] [address] - - - - - - [...] automatically d ocumented from SURGERY package case #[id number] Field (#32) PRINCIPAL PRE-OP DIAGNOSIS, (#.72) OTHER [...] automatically d ocumented from SURGERY package case #[id number] Field (#34) PRINCIPAL POST-OP DIAG, (#.74) OTHER [...] Label: Lucas Meek Paperwork: Lucas Meek Cassette: [id number];..;KALYANI;.;405;[id number] Specimen is labeled: ES bx Received in formalin are several pieces of pale boyd and brown tissue, 1.2 x 0.7 cm in aggregate. Submitted entirely in 1 cassette [id number];..;KALYANI;.;405;[phone] SAW 12/15/2021 Microscopic exam: DIAGNOSIS: A. 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 Kendell longTIARA Barba was notified on 12/21/21. The attending pathologist who signature mansoor ears on this report has reviewed all diagnostic slides and has edited t he gross and/or microscopic portion of this report in rendering the final pathologic diagnosis. [address] [address] CPT: 11769 /emely/ NIURKA Yeung MD Signed Dec 21, 2021@11:46 Performing Laboratory: Surgical Pathology Report Performed By: [facility] [CLIA# [id number]] [address] [place] [address] $FTR - - - - - [...] - - LUCAS MEEK STANDARD FORM 515 ID:[id number] SEX:M :1950 AGE: 71 LOC: SDM END PCP: Isatu Todd /emely/ NIURKA Yeung MD Signed: 12/21/2021 11:46 Dec 06, 2021 03:30 PM LR [facility] Reporting Lab: [facility] [CLIA# [id number]] [address] [place] [address] Accession [UID]: [id number] [[id number]] Receiv ed: Dec 06, 2021@16:14 Collection sample: BLOOD CUL T BOTTLE(NIRMAL/AERO)Collection date: Dec 06, 2021 15:30 Site/Specimen: BLOOD Provider: JELANI SÁNCHEZ Comment on specimen: LAC Test(s) ordered: BLOOD CULTURE ANAEROBI C....... completed: Dec 12, 2021 06:18 * BACTERIOLOGY FINAL REPORT => Dec 12, 2021 06:1 8 TECH CODE: [id number] Bacteriology Remark(s): NO GROWTH IN 5 DAYS =--=--=--=--=--=--=--=--=--=--=--=--=--= --=--=--=--=--=--=--=--=--=--=--=--=-- Performing Laboratory: Bacteriology Report Performed By: [facility] [CLIA# [id number]] [address] [place] [address] Dec 06, 2021 03:30 PM LR MICROBIOLOGY REPORT: [facility] Reporting Lab: [facility] [CLIA# [id number]] [address] [place] [address] Accession [UID]: [id number] [[id number]] Receiv ed: Dec 06, 2021@16:14 Collection sample: BLOOD CUL T BOTTLE(NIRMAL/AERO)Collection date: Dec 06, 2021 15:30 Site/Specimen: BLOOD Provider: JELANI SÁNCHEZ Comment on specimen: LAC Test(s) ordered: BLOOD CULTURE AEROBIC. ........ completed: Dec 12, 2021 06:17 * BACTERIOLOGY FINAL REPORT => Dec 12, 2021 06:1 7 TECH CODE: [id number] Bacteriology Remark(s): NO GROWTH IN 5 DAYS =--=--=--=--=--=--=--=--=--=--=--=--=--= --=--=--=--=--=--=--=--=--=--=--=--=-- Performing Laboratory: Bacteriology Report Performed By: [facility] [CLIA# [id number]] [address] [place] [address]
--- OUTSIDE RECORDS SUMMARY | 2022-01-19 08:08 | XMS_ITS | Encounter Summary ---
:1950 Author Organization [facility] Address [address] [place] [id number] Support Name Relationship Address Phone YUSRA MEEK Unavailable [address] [place] [facility] [place] [address] YUSRA MEEK Unavailable [address] [place] [facility] [place] [address] CLAY MOSLEY Unavailable Unavailable SJ SANTACRUZ Unavailable [...] MEDICARE MEDICARE PART Jun 18, PART A [id number] DO KALYANI PATIENT (WNR) (M) A 2016 13A 1 UGLAS MEDICARE MEDICARE PART Jun 18, PART A [id number] DO KALYANI PATIENT (WNR) (M) A 2017 VH81 2 LAS MEDICARE MEDICARE PART Jun 18, PART B [id number] DO KALYANI PATIENT (WNR) (M) B 2016 13A 1 UGLAS MEDICARE MEDICARE PART Jun 18, PART B [id number] DO KALYANI PATIENT (WNR) (M) B 2017 VH81 2 UGLAS UNITED MEDICARE MCR(Jun 18 [id number] Luz MEEK PATIENT HEALTHCARE ADVANTAGE NR) 2021 37 0 [facility] (WNR) Selected Encounter This section includes the information on record at CT for the Encounter. Date/Time Encounter Type Encounter Description Reason Provider Source Dec 15, 2021 03:50 Outpatient Encounter TELEPHONE CASE PM MANAGEMENT IHE Encounter Template Text not used by CT Plan of Treatment: Future Appointments (+ 6 months) and Future Tests (+/- 45 days) The Plan of Treatment section includes future care activities for the patient from all CT treatmentfacilities. This section includes future appointments and future orders which are active, pending orscheduled.Future Appointments This section includes appointments that were scheduled to occur 6 months from the date of the Encounter, up to a maximum of 20 appointments. The data comes from all CT treatment facilities. Appointment Date/Time Appointment Type Appointment Facili ty Name Dec 21, 2021 08:00 AM AM[place] [facility] Jan 06, 2022 02:00 PM [place] [facility] Jan 10, 2022 11:30 AM AMBULATORY - MEDICINE [facility] Jan 24, 2022 08:00 AM [place] [facility] Feb 21, 2022 10:00 AM [place]UL[place] [facility] Mar 21, 2022 10:30 AM AMBULATORY - MEDICINE [facility] Active, Pending, and Scheduled [...] the Encounter. The data comes from all CT treatment [facility]. Test Date/Time Test Type Test Details Facility Name October 31, 2021 07:37 AM Consult Order COMMUNITY CARE-EGD [facility] Cons Balloon Artist's Choice November 15, 2021 10:37 AM Consult Order [facility] CARE-PODIATRY Cons Balloon Artist's Choice Dec 06, 2021 12:52 PM [place]acy [place] Infusion Order [facility] Dec 06, 2021 03:24 PM Pharmacy [place] [facility] Dec 06, 2021 03:40 PM Pharmacy [place] [facility] Dec 15, 2021 08:41 AM Consult Order SPEECH PATHOLOGY [place] OUTPATIENT Cons [facility] Balloon Artist's Choice Jan 15, 2022 10:08 PM Consult Order [facility] CARE-PALLIATIVE CARE Cons Balloon Artist's Choice Lab Results: +/- 30 days of [...] Reference Range Comment Dec 15, 2021 [place] P4 GLU,BUN,CREAT,LYTES,CA Speci men Type: PLASMA 06:43 AM [facility] Comment: Tests performed on Bambisa (405) SN:[id number] Ordering Provid er: ISATU TODD Report Released Date/Time: Dec 11, 2021 07:42 AM Reporting Lab: [facility] T [facility] [address] [facility] [address] Performing Lab: [facility] [address] [facility] [address] UREA NITROGEN 9 7-25 SODIUM 137 135-145 POTASSIUM 3.8 3.5-5.0 CHLORIDE 105 100-110 CARBON DIOXIDE 26 20-30 ANION GAP 6 4-16 GLUCOSE 102 H 65-100 CREATININE 0.64 0.5-1.5 CALCIUM 8.1 L 8.5-10.5 eGFR(CKD-EPI 2020) >90.0 >60 Dec 15, 2021 06:43 AM [facility] CBC PROFILE Sp ecimen Type: BLOOD No comment enter ed. Ordering Provid er: ISATU TODD Report Released Date/Time: Dec 10, 2021 07:22 AM Reporting Lab: [place] [facility] [facility] [address] [facility] [address] Performing Lab: [facility] [address] [facility] [address] WBC 5.7 4.5-11.0 RBC 4.22 L 4.23-5.66 [...] 0.00 0-0 Dec 14, 2021 [facility] CYTOGENETIC Specimen Type: ESOPHAGUS 02:59 PM VA[facility] FISH([facility] Comment: ~For T est: CYTOGENETIC FISH([facility]) ~FISH HER 2 NUE, FFPE See full report in Prezma Image display viewer/tab#LAB-Reference Ordering Provid er: NIURKA MILLER Report Released Date/Time: Dec 21, 2021 12:11 PM Reporting Lab: [facility] [address] [facility] [address] Performing Lab: [facility] CYTOGENETIC FISH([facility]) comment Dec 14, 2021 [facility] P4 GLU,BUN,CREAT,LYTES,CA Speci men Type: PLASMA 06:27 AM [facility] Comment: Tests performed on Bambisa (405) SN:[id number] Ordering Provid er: ISATU TODD Report Released Date/Time: Dec 11, 2021 07:42 AM Reporting Lab: [facility] [address] [facility] [address] Performing Lab: [facility] [address] [facility] [address] UREA NITROGEN 10 7-25 SODIUM 137 135-145 POTASSIUM 4.0 3.5-5.0 CHLORIDE 104 100-110 CARBON DIOXIDE 25 20-30 ANION GAP 8 4-16 GLUCOSE 99 65-100 CREATININE 0.67 0.5-1.5 CALCIUM 8.2 L 8.5-10.5 eGFR(CKD-EPI 2020) >90.0 >60 Dec 14, 2021 06:27 AM [facility] CBC PROFILE Sp ecimen Type: BLOOD No comment enter ed. Ordering Provid er: ISATU TODD Report Released Date/Time: Dec 10, 2021 07:22 AM Reporting Lab: [facility] [address] [facility] [address] Performing Lab: [facility] [address] [facility] [address] WBC 6.0 4.5-11.0 RBC 4.29 4.23-5.66 HGB [...] 0.00 0-0 Dec 13, 2021 [facility] P4 GLU,BUN,CREAT,LYTES,CA Speci men Type: PLASMA 06:34 AM [facility] Comment: Tests performed on Bambisa (405) SN:[id number] Ordering Provid er: ISATU TODD Report Released Date/Time: Dec 11, 2021 07:42 AM Reporting Lab: [facility] [address] [facility] [address] Performing Lab: [facility] [address] [facility] [address] UREA NITROGEN 12 7-25 SODIUM 136 135-145 POTASSIUM 3.9 3.5-5.0 CHLORIDE 105 100-110 CARBON DIOXIDE 24 20-30 ANION GAP 7 4-16 GLUCOSE 102 H 65-100 CREATININE 0.66 0.5-1.5 CALCIUM 8.3 L 8.5-10.5 eGFR(CKD-EPI 2020) >90.0 >60 Dec 13, 2021 06:34 AM [facility] CBC PROFILE Sp ecimen Type: BLOOD No comment enter ed. Ordering Provid er: ISATU TODD Report Released Date/Time: Dec 10, 2021 07:22 AM Reporting Lab: [facility] [address] [facility] [address] Performing Lab: [facility] [address] [facility] [address] WBC 5.6 4.5-11.0 RBC 4.28 4.23-5.66 HGB [...] 0.00 0-0 Dec 12, 2021 [facility] P4 GLU,BUN,CREAT,LYTES,CA Speci men Type: PLASMA 06:21 AM [facility] Comment: Tests performed on Bambisa (405) SN:[id number] Ordering Provid er: ISATU TODD Report Released Date/Time: Dec 11, 2021 07:42 AM Reporting Lab: [facility] [address] [facility] [address] Performing Lab: [facility] [address] [facility] [address] UREA NITROGEN 11 7-25 SODIUM 139 135-145 POTASSIUM 4.1 3.5-5.0 CHLORIDE 107 100-110 CARBON DIOXIDE 24 20-30 ANION GAP 8 4-16 GLUCOSE 110 H 65-100 CREATININE 0.70 0.5-1.5 CALCIUM 8.3 L 8.5-10.5 eGFR(CKD-EPI 2020) >90.0 >60 Dec 12, 2021 06:21 AM [facility] CBC PROFILE Sp ecimen Type: BLOOD No comment enter ed. Ordering Provid er: ISATU TODD Report Released Date/Time: Dec 10, 2021 07:22 AM Reporting Lab: [facility] [address] [facility] [address] Performing Lab: [facility] [address] [facility] [address] WBC 5.5 4.5-11.0 RBC 4.37 4.23-5.66 HGB [...] 0.00 0-0 Dec 12, 2021 06:00 AM [facility] MAGNESIUM Sp ecimen Type: PLASMA Comment: Testin g Performed on Bambisa (405) SN:[id number] Ordering Provid er: ISATU TODD Report Released Date/Time: Dec 12, 2021 08:24 AM Reporting Lab: [place] [employer] [address] [facility] [address] Performing Lab: [facility] [place] [employer] [address] [facility] [address] MAGNESIUM 1.8 1.6-2.6 Dec 12, 2021 06:00 AM [facility] PHOSPHORUS Sp ecimen Type: PLASMA Comment: Testin g Performed on Bambisa (405) SN:[id number] Ordering Provid er: ISATU TODD Report Released Date/Time: Dec 12, 2021 08:24 AM Reporting Lab: [place] [employer] [address] [facility] [address] Performing Lab: [place] [employer] [address] [facility] [address] PHOSPHORUS 3.1 2.5-5.0 Dec 11, 2021 06:15 AM [facility] [place] [employer] [facility] ELECTROLYTES Sp ecimen Type: PLASMA Comment: Tests performed on Bambisa (405) SN:[id number] Ordering Provid er: ISATU TODD Report Released Date/Time: Dec 10, 2021 07:22 AM Reporting Lab: [place] [employer] [address] [facility] [address] Performing Lab: [place] [employer] [address] [facility] [address] SODIUM 137 135-145 POTASSIUM 4.3 3.5-5.0 CHLORIDE 108 100-110 CARBON DIOXIDE 20 20-30 ANION GAP 9 4-16 Dec 11, 2021 06:15 AM [place] [facility] CBC PROFILE Sp ecimen Type: BLOOD Comment: Result s checked Ordering Provid er: ISATU TODD Report Released Date/Time: Dec 10, 2021 07:22 AM Reporting Lab: [place] [address] [facility] [address] Performing Lab: [place] [facility] [address] [facility] [address] WBC 5.8 4.5-11.0 RBC 4.37 4.23-5.66 HGB [...] 0.00 0-0 Dec 11, 2021 06:00 AM [facility] PHOSPHORUS Sp ecimen Type: PLASMA Comment: Tests performed on Bambisa (118) SN:[id number] Results checked Ordering Provid er: ISATU TODD Report Released Date/Time: Dec 11, 2021 07:44 AM Reporting Lab: [place] [facility] [address] [facility] [address] Performing Lab: [place] [facility]MEGAT CTMR[facility] [address] [facility] [address] PHOSPHORUS 3.0 2.5-5.0 Dec 10, 2021 08:05 AM [place] [facility] MAGNESIUM Sp ecimen Type: PLASMA Comment: [place] [id number] on Dec 10, 2021@08:31 Tests performed on Bambisa (405) SN:[id number] Ordering Provid er: ISATU TODD Report Released Date/Time: Dec 10, 2021 07:22 AM Reporting Lab: [place] [facility] [address] [facility] [place] [place] [address] Performing Lab: [place] [facility] [address] [facility] [place] [place] [address] MAGNESIUM 1.7 1.6-2.6 Dec 10, 2021 08:05 AM [place] [facility] PHOSPHORUS Sp ecimen Type: PLASMA Comment: [place] [id number] on Dec 10, 2021@08:31 Tests performed on Bambisa (405) SN:[id number] Ordering Provid er: ISATU TODD Report Released Date/Time: Dec 10, 2021 07:22 AM Reporting Lab: [place] [facility] [address] [facility] [place] [address] Performing Lab: [place] [facility] [address] [facility] [place] [address] PHOSPHORUS 1.8 L 2.5-5.0 Dec 10, 2021 08:05 AM [place] UREA NITROGEN Specimen Type: PLASMA [facility] Comment: [place] [id number] on Dec 10, 2021@08:31 Tests performed on Bambisa (405) SN:[id number] Ordering Provid er: ISATU TODD Report Released Date/Time: Dec 10, 2021 07:22 AM Reporting Lab: [place] [facility] [address] [facility] [place] [address] Performing Lab: [place] [facility] [address] [facility] [place] [address] UREA NITROGEN 8 7-25 Dec 10, 2021 08:05 AM [place] [facility] GLUCOSE Sp ecimen Type: PLASMA Comment: [place] [id number] on Dec 10, 2021@08:31 Tests performed on Bambisa (405) SN:[id number] Ordering Provid er: ISATU TODD Report Released Date/Time: Dec 10, 2021 07:22 AM Reporting Lab: [place] [facility] [address] [facility] [address] Performing Lab: [place] [facility] [address] [facility] [address] GLUCOSE 144 H 65-100 Dec 10, 2021 08:05 AM [place] [facility] CALCIUM Sp ecimen Type: PLASMA Comment: [place] [id number] on Dec 10, 2021@08:31 Tests performed on Bambisa (405) SN:[id number] Ordering Provid er: ISATU TODD Report Released Date/Time: Dec 10, 2021 07:22 AM Reporting Lab: [place] [facility] [address] [facility] [address] Performing Lab: [place] [facility] [address] [facility] [address] CALCIUM 8.3 L 8.5-10.5 Dec 10, 2021 08:05 AM [place] [facility] ELECTROLYTES Sp ecimen Type: PLASMA Comment: [place] [id number] on Dec 10, 2021@08:31 Tests performed on Pham LiveStories (405) SN:[id number] Ordering Provid er: ISATU TODD Report Released Date/Time: Dec 10, 2021 07:22 AM Reporting Lab: [place] [facility] [address] [facility] [address] Performing Lab: [place] [facility] [address] [facility] [address] SODIUM 139 135-145 POTASSIUM 3.7 3.5-5.0 CHLORIDE 107 100-110 CARBON DIOXIDE 24 20-30 ANION GAP 8 4-16 Dec 10, 2021 08:05 [place] CREATININE WITH eGFR Specime n Type: PLASMA AM [facility] PANEL [place]: [place] [id number] on Dec 10, 2021@08:31 Tests performed on Bambisa (405) SN:[id number] Ordering Provid er: ISATU TODD Report Released Date/Time: Dec 10, 2021 07:22 AM Reporting Lab: [place] [facility] [address] [facility] [address] Performing Lab: [place] [facility] [address] [facility] [address] CREATININE 0.78 0.5-1.5 eGFR(CKD-EPI 2020) >90.0 >60 Dec 10, 2021 08:05 AM [facility] CBC PROFILE Sp ecimen Type: BLOOD No comment enter ed. Ordering Provid er: ISATU TODD Report Released Date/Time: Dec 10, 2021 07:22 AM Reporting Lab: [place] [facility] [address] [facility] [address] Performing Lab: [place] [facility] [address] [facility] [address] WBC 7.0 4.5-11.0 RBC 4.54 4.23-5.66 HGB [...] 0.00 0-0 Dec 09, 2021 06:46 AM [facility] MAGNESIUM Sp ecimen Type: PLASMA Comment: Tests performed on Bambisa (548) SN:[id number] Ordering Provid er: ISATU TODD Report Released Date/Time: Dec 08, 2021 10:23 AM Reporting Lab: [facility] [address] [facility] [address] Performing Lab: [facility] [address] [facility] [address] MAGNESIUM 1.6 1.6-2.6 Dec 09, 2021 [facility] P4 GLU,BUN,CREAT,LYTES,CA Speci men Type: PLASMA 06:46 AM [facility] Comment: Tests performed on Bambisa (405) SN:[id number] Ordering Provid er: ISATU TODD Report Released Date/Time: Dec 08, 2021 05:00 PM Reporting Lab: [facility] [address] [facility] [address] Performing Lab: [facility] [address] [facility] [address] UREA NITROGEN 6 L 7-25 SODIUM 134 L 135-145 POTASSIUM 3.7 3.5-5.0 CHLORIDE 103 100-110 CARBON DIOXIDE 23 20-30 ANION GAP 8 4-16 GLUCOSE 112 H 65-100 CREATININE 0.70 0.5-1.5 CALCIUM 8.1 L 8.5-10.5 eGFR(CKD-EPI 2020) >90.0 >60 Dec 09, 2021 06:46 AM [facility] CBC PROFILE Sp ecimen Type: BLOOD No comment enter ed. Ordering Provid er: ISATU TODD Report Released Date/Time: Dec 08, 2021 05:00 PM Reporting Lab: [facility] [address] [facility] [address] Performing Lab: [facility] [address] [facility] [address] WBC 7.1 4.5-11.0 RBC 4.40 4.23-5.66 HGB [...] 0.00 0-0 Dec 08, 2021 06:39 AM [facility] [employer] [facility] MAGNESIUM Sp ecimen Type: PLASMA Comment: Testin g Performed on Bambisa (405) SN:[id number] Ordering Provid er: ISATU TODD Report Released Date/Time: Dec 07, 2021 10:32 AM Reporting Lab: [facility] [address] [facility] [address] Performing Lab: [facility] [address] [facility] [address] MAGNESIUM 1.5 L 1.6-2.6 Dec 08, 2021 [place] [employer] T P4 GLU,BUN,CREAT,LYTES,CA Speci men Type: PLASMA 06:39 AM [facility] Comment: Testin g Performed on Bambisa (405) SN:[id number] Ordering Provid er: ISATU TODD Report Released Date/Time: Dec 07, 2021 10:32 AM Reporting Lab: [employer] T [facility] [address] [facility] [address] Performing Lab: [facility] [address] [facility] [address] UREA NITROGEN 6 L 7-25 SODIUM 136 135-145 POTASSIUM 3.3 L 3.5-5.0 CHLORIDE 104 100-110 CARBON DIOXIDE 22 20-30 ANION GAP 10 4-16 GLUCOSE 133 H 65-100 CREATININE 0.76 0.5-1.5 CALCIUM 8.4 L 8.5-10.5 eGFR(CKD-EPI 2020) >90.0 >60 Dec 08, 2021 06:39 AM [place] [facility] [facility] CBC PROFILE Sp ecimen Type: BLOOD No comment enter ed. Ordering Provid er: ISATU TODD Report Released Date/Time: Dec 07, 2021 10:32 AM Reporting Lab: [facility] [address] [facility] [address] Performing Lab: [facility] [address] [facility] WBC 8.4 4.5-11.0 RBC 4.75 [...] 0-0 Dec 07, 2021 06:42 [facility] LIVER PROFILE Specimen Typ e: PLASMA AM [facility] Comment: Tests performed on Bambisa (405 SN:[id number] Ordering Provid er: PORFIRIO WALTERS Report Released Date/Time: Dec 06, 2021 06:57 PM Reporting Lab: [facility] [address] [facility] [address] Performing Lab: [facility] [address] [facility] [address] PROTEIN, TOTAL 5.7 L 6.0-8.5 ALBUMIN 2.4 L 3.2-5.0 BILIRUBIN, TOTAL 0.4 0.2-1.2 ALKALINE PHOSPHATASE 109 40-150 ALT(SGPT) 10 7-52 AST(SGOT) 15 5-34 FIB-4 SCORE 1.92 <2.67 Dec 07, 2021 [facility] P4 GLU,BUN,CREAT,LYTES,CA Speci men Type: PLASMA 06:42 AM [facility] Comment: Tests performed on Bambisa (405) SN:[id number] Ordering Provid er: PORFIRIO WALTERS Report Released Date/Time: Dec 06, 2021 06:57 PM Reporting Lab: [place] [facility] [address] [facility] [address] Performing Lab: [place] [facility] [address] [facility] [address] UREA NITROGEN 9 7-25 SODIUM 135 135-145 POTASSIUM 3.5 3.5-5.0 CHLORIDE 103 100-110 CARBON DIOXIDE 22 20-30 ANION GAP 10 4-16 GLUCOSE 92 65-100 CREATININE 0.73 0.5-1.5 CALCIUM 8.0 L 8.5-10.5 eGFR(CKD-EPI 2020) >90.0 >60 Dec 07, 2021 06:42 AM [place] CBC PROFILE Specimen Type: BLOOD [facility] No comment enter ed. Ordering Provid er: PORFIRIO WALTERS Report Released Date/Time: Dec 06, 2021 06:57 PM Reporting Lab: [place] [facility] [address] [facility] [address] Performing Lab: [facility] [address] [facility] [address] WBC 5.7 4.5-11.0 RBC 4.15 L 4.23-5.66 [...] [facility] %) AUTOMATED Comment: Tests performed on Bambisa (405) SN:[id number] Ordering Provid er: ISATU TODD Report Released Date/Time: Dec 07, 2021 10:28 AM Reporting Lab: [place] [facility] [address] [facility] [address] Performing Lab: [place] [facility] [address] [facility] [address] RETICULOCYTES (%) AUTOMATED 1.23 0. 6-2.0 RETICULOCYTES (ABS) AUTOMATED 0.052 0.030-0.090 Dec 06, 2021 09:45 [place] MRSA SURVL NARES Specimen Ty pe: NARES PM [facility] DNA No comment enter ed. Ordering Provid er: ALVARO VARGHESE Report Released Date/Time: Dec 07, 2021 02:20 AM Reporting Lab: [place] [facility] [address] [facility] [address] Performing Lab: [place] [facility] [address] [facility] [address] MRSA SURVL NARES DNA NEGATIVE NEGATIVE Dec 06, 2021 06:00 [place] URINALYSIS W/REFLEX TO Speci men Type: URINE PM [facility] CULTURE No comment enter ed. Ordering Provid er: JELANI SÁNCHEZ Report Released Date/Time: Dec 06, 2021 11:57 AM Reporting Lab: [place] [facility] [address] [facility] [address] Performing Lab: [place] [facility] [address] [facility] [address] URINE COLOR Arlin YELLOW SPECIFIC GRAVITY 1.029 [...] 21, RIVER VARIANT Comment: https://www.cdc.gov/coronavirus/2019-ncov/cases-updates/variant- surveillance/variant-info.html The [employer] SARS CoV 2 [employer] Assay-GX is a next-generation sequencing (NGS) assa 2021 [facility] SEQUENCING y that determine s the complete genome sequence of the SARS-CoV-2 virus. The assay contains variant-tolerant primers to broaden and improve the coverage for variant detection and increase the sensitivity 12:00 [facility] PNL(WH) of the panel to enable detection from lower viral titer samples. The assay is run on the i[employer]ardChart Sequencer, which performs automated library preparation, sequencing, analysis, and reporting. PM The sequence an alysis includes determination of viral phylogenetic lineage by comparison to the reference strain Wu[place]-Hu-1, GenBank: [id number]. Sequence determination may not be possible owing [...] and its performance characteristics determined by the [facility] Molecular Diagnostics Laboratory, which is certified under the Clinical Laboratory Improveme nt Amendments (C MARCO) as qualified to perform high complexity clinical laboratory testing. This test is validated for clinical use at [facility] and should not be regarded as investigational or for research. The FDA does not require this test to go through premarket FDA review, and therefore it has not been cleared or approved by the FDA. This report was reviewed and approved by the on-service pathologist. Ordering Provid er: JELANI SÁNCHEZ Report Released Date/Time: Dec 06, 2021 01:13 PM Reporting Lab: [place] [facility] [address] [facility] [address] Performing Lab: [facility] [address] [facility] [address] SARS-CoV-2 CLADE() 22C (OMICRON) SARS-CoV-2 LINEAGE() BA.2.12.1 Dec 06, 2021 12:00 [facility] COVID-19 AG SCREEN Specimen Type: NASAL CAVITY PM [facility] PANEL BINAX(405) Comment: Testi ng Performed By: Mike Briscoe Ordering Provid er: JELANI SÁNCHEZ Report Released Date/Time: Dec 08, 2021 08:23 AM Reporting Lab: [facility] [address] [facility] [address] Performing Lab: [facility] [address] [facility] [address] COVID-19 AG SCRN(wrj BINAX) POSITIVE HH NE G Dec 06, 2021 12:00 PM [facility] BNP(P) Sp ecimen Type: PLASMA Comment: Tests performed on [employer] (405) [id number] Ordering Provid er: JELANI SÁNCHEZ Report Released Date/Time: Dec 06, 2021 11:57 AM Reporting Lab: [place] [facility] [address] [facility] [address] Performing Lab: [place] [facility] [address] [facility] [address] BNP(P) 224.8 H 10-100 Dec 06, 2021 [place] P4 GLU,BUN,CREAT,LYTES,CA Speci men Type: PLASMA 12:00 PM [facility] Comment: Testin g Performed on [employer] (405) [id number] Ordering Provid er: JELANI SÁNCHEZ Report Released Date/Time: Dec 06, 2021 11:57 AM Reporting Lab: [place] [facility] [address] [facility] [address] Performing Lab: [place] [facility] [address] [facility] [address] UREA NITROGEN 13 7-25 SODIUM 138 135-145 POTASSIUM 3.8 3.5-5.0 CHLORIDE 103 100-110 CARBON DIOXIDE 23 20-30 ANION GAP 12 4-16 GLUCOSE 105 H 65-100 CREATININE 0.90 0.5-1.5 CALCIUM 8.7 8.5-10.5 eGFR(CKD-EPI 2020) >90.0 >60 Dec 06, 2021 12:00 PM [facility] LIVER PROFILE Sp ecimen Type: PLASMA Comment: Testin g Performed on [employer] (405) SN:[id number] Ordering Provid er: JELANI SÁNCHEZ Report Released Date/Time: Dec 06, 2021 11:57 AM Reporting Lab: [facility] [address] [facility] [address] Performing Lab: [facility] [address] [facility] [address] PROTEIN, TOTAL 6.6 6.0-8.5 ALBUMIN 2.8 L 3.2-5.0 BILIRUBIN, TOTAL 0.6 0.2-1.2 ALKALINE PHOSPHATASE 134 40-150 ALT(SGPT) 13 7-52 AST(SGOT) 18 5-34 FIB-4 SCORE 1.94 <2.67 Dec 06, 2021 12:00 PM [facility] TROPONIN II Sp ecimen Type: PLASMA Comment: Tests performed on [employer] (405) SN:[id number] Ordering Provid er: JELANI SÁNCHEZ Report Released Date/Time: Dec 06, 2021 11:57 AM Reporting Lab: [facility] [address] [facility] [address] Performing Lab: [facility] [address] [facility] [address] TROPONIN II 0.03 0.00-0.29 Dec 06, 2021 [facility] COVID-19+FLU/RSV DIAGNOSTIC Spe cimen Type: NASOPHARYNX 12:00 PM [facility] PANEL(405) Comment: Tests performed on Skysheet Genexpert (405) Critical results called to and read back by: ALESHIA WILKINSON RN 12/06/21 @ 1312 Ordering Provid er: JELANI SÁNCHEZ Report Released Date/Time: Dec 06, 2021 11:57 AM Reporting Lab: [facility] [address] [facility] [address] Performing Lab: [place] [facility] [address] [facility] [address] FLU A(PCR) NEGATIVE NEGATIVE FLU B(PCR) NEGATIVE NEGATIVE RSV(PCR) NEGATIVE NEGATIVE COVID-19([id number]-[id number]) DETECTED HH NO T DETECTED Dec 06, 2021 12:00 PM [facility] Sp ecimen Type: BLOOD No comment enter ed. Ordering Provid er: JELANI SÁNCHEZ Report Released Date/Time: Dec 06, 2021 11:57 AM Reporting Lab: [facility] [address] [facility] [address] Performing Lab: [facility] [address] [facility] [address] WBC 7.2 4.5-11.0 RBC 4.86 4.23-5.66 HGB [...] 99 136/67 18 /min 98 % 0 SHILOH 2021 11:35 /min mm[Hg] [facility] Nov 30, 0 SHILOH 2021 08:00 [facility] Dec 15, 96.9 F 93 134/71 18 /min 97 % 0 SHILOH 2021 05:01 /min mm[Hg] [facility] Social History: Smoking Status (Most current) and Tobacco Use (All prior to encounter date) This section includes the most current, and the historical, smoking and tobacco-related health factors from the CT facility where the Encounter took place.Current Smoking Status This section includes the most current smoking, or tobacco-related health factor, from the CT facility where the Encounter took place. Date/Time Current Smoking Status Comment Facility Dec 06, 2021 11:40 AM QUIT TOBACCO USE > 7 YEARS AGO [facility] Tobacco Use History This section includes a history of the smoking, or tobacco- related health factors, that were collected on or before the date of the Encounter. The data comes from the CT facility where the Encounter took place. Date/Time Smoking Status/Tobacco Use Comment [facility] Apr 01, 2020 01:16 PM QUIT TOBACCO USE 1-7 YEARS AGO [facility] Mar 24, 2020 03:00 PM QUIT TOBACCO USE 1-7 YEARS AGO [facility] Feb 21, 2019 04:11 PM QUIT TOBACCO USE 1-7 YEARS AGO [facility] Feb 20, 2019 03:38 PM QUIT TOBACCO USE 1-7 YEARS AGO [facility] Feb 03, 2019 09:50 AM QUIT TOBACCO USE 1-7 YEARS AGO [facility] May 25, 2016 11:53 PM QUIT TOBACCO USE IN PAST YEAR [facility] May 23, 2016 06:57 PM QUIT TOBACCO USE > 7 YEARS AGO [facility] May 19, 2016 03:55 PM QUIT TOBACCO USE IN PAST YEAR [facility] May 19, 2016 10:29 AM QUIT TOBACCO USE 1-7 YEARS AGO [facility] May 01, 2016 07:26 PM QUIT TOBACCO USE IN PAST YEAR [facility] May 01, 2016 03:11 PM QUIT TOBACCO USE IN PAST YEAR [facility] May 01, 2016 11:19 AM QUIT [...] SMOKER CAREY Yates [facility] Radiology Reports: +/- 30 days of [...] the Encounter. The data comes from all CT treatment facilities. Date/Time Radiology Report Provider Source Dec 13, 2021 12:57 PM MRI ABDOMEN W/WO CONTRAST: MARYELLEN LONG [facility] LUCAS MEEK N [id number] -1950 [facility] Exm Date: DEC 13, 2021@12:57 Req Phys: ISATU TODD Loc: OP Unknown/0 12-15-2021@13:20 Img Loc: MRI IMAGING (OOS) Service: [facility]IC[facility] (Case [id number] COMPLETE) MRI ABDOMEN W/WO CONTRAST (M RI Detailed) CPT:25433 Reason for Study: further characterization of a [...] new lyphadenopathy REQUESTING MD: Isatu Todd PAGER: [phone] PHONE: [phone] Weight: 232.2 lb [105.32 kg] (12/12/2021 05:00) [...] patient will need to arrange for a assembly line driver to take him/her home after [...] 15, 2021 Date Verified: DEC 15, 2021 Adjunct Physical Education Instructor E-Sig:/EMELY/MARYELLEN LONG Report: MRI ABDOMEN W/WO CONTRAST [...] MALIGNANCY Primary Interpreting Staff: Staff AMELIA THOMAS (Adjunct Physical Education Instructor) / Dec 10, 2021 09:[address] ABDOMEN & PELVIS: RADIOLOGY,OUTSIDE [facility] [place] LUCAS MEEK N [id number] -1950 M SERVICE [facility] Ex Date: DEC 10, 2021@09:30 Req Phys: ISATU TODD E Josseline Loc: 1S MED/12-10@10:57 Img Loc: CT SCAN (OOS) Service: [facility] (Case [id number] COMPLETE) CT ABD & PELVIS WITHOUT CONT RAST (CT Detailed) CPT:72579 Reason for Study: 71 yo male with [...] RADIOLOGY [phone] to speak to the appropriate electrical power station technician. Report Status: Verified Date Reported: DEC 10, 2021 Date Verified: DEC 10, 2021 Adjunct Physical Education Instructor E-Sig: Report: EXAM: CT abdomen and pelvis [...] ph nodes. READING PHYSICIAN: Ramone Munoz D.O. -[phone] [phone] 12/10/2021 10:55 EDT [facility] National Teleradiology Program [phone] (For Medical Practitioner Use Only ) [address] [facility], [facility] [address], [address] [place] [address] Attention Patients / Veterans: If you have ques tions or concerns about these test results, please contact your o rdering provider or primary care team. Primary Diagnostic Code: SIGNIFICANT ABNORMALIT Y, ATTN NEEDED Primary Interpreting Staff: RADIOLOGY,OUTSIDE SERVICE, Staff Physician / Dec 09, 2021 07:34 AM BASW (MODIFIED): JESSIE CHENEY [facility] [place] LUCAS MEEK N [id number] -1950 [facility] Ex Date: DEC 09, 2021@07:34 Req Phys: ISATU TODD Pat Loc: 1S MED/12-09@11:26 Img Loc: XRAY (OOS) Service: [facility] MEDICINE (Case [id number] COMPLETE) BASW (MODIFIED) (EUNICE Alex d) CPT:35040 Contrast Media : Barium Reason for Study: dysphagia ?esophageal spasm Clinical History: Report Status: Verified Date Reported: DEC 09, 2021 Date Verified: DEC 09, 2021 Adjunct Physical Education Instructor E-Sig:/ES/JESSIE CHENEY Report: BASW (MODIFIED) , 12/09/2021 [...] REQUIRED Primary Interpreting Staff: JESSIE CHENEY, RADIOLOGIST (Adjunct Physical Education Instructor) /TLC Dec 06, 2021 12:[address] CHEST (INCLUDES ADRENALS): JESSIE CHENEY LUCAS LARES [id number] -1950 M [facility] Exm Date: DEC 06, 2021@12:59 Req Phys: JELANI SÁNCHEZ Pat Loc: [facility] ED DAYS M 1RD (Req'g Loc) Img Loc: CT SCAN (OOS) Service: Unknown (Case [id number] COMPLETE) CT THORAX W/O CONT (CT Detai led) CPT:95202 Reason for Study: Opacification right chest Clinical History: No contrast allergy BUN: 13 (12/06/21 12:00) CREATI: 0.90 (12/06/21 12:00) eGFR 05/16/21 09:43 52 L Weight: 232.6 lb [105.51 kg] (12/06/2021 11:40) BODY MASS INDEX - NO HEIGHTS FOUND Pager number: [phone] STAT orders MUST be called t o RADIOLOGY [phone] to speak to the appropriate electrical power station technician. Indications - Other: Opacification right chest, covid positive, lung cancer histo Report Status: Verified Date Reported: DEC 06, 2021 Date Verified: DEC 06, 2021 Adjunct Physical Education Instructor E-Sig:/ES/JESSIE CHENEY Report: CT THORAX W/O CONT [...] REQUIRED Primary Interpreting Staff: JESSIE CHENEY, RADIOLOGIST (Adjunct Physical Education Instructor) Primary Interpreting Resident: PRINCE CHAMPION, Resident /BR Dec 06, 2021 11:58 AM CHEST SINGLE VIEW: JESSIE CHENEYLUCAS N [id number] -1950 M [facility] Exm Date: DEC 06, 2021@11:58 Req Phys: JELANI SÁNCHEZ Pat Loc: [facility] ED DAYS M 1RD (Req'g Loc) Img Loc: XRAY (OOS) Service: Unknown (Case [id number] COMPLETE) CHEST SINGLE VIEW (RAD Detai led) CPT:56623 Proc Modifiers : PORTABLE EXAM Reason for Study: SOB, home covid test positive Clinical History: Report Status: Verified Date Reported: DEC 06, 2021 Date Verified: DEC 06, 2021 Adjunct Physical Education Instructor E-Sig:/ES/JESSIE CHENEY Report: Exam type: Chest x-ray [...] REQUIRED Primary Interpreting Staff: JESSIE CHENEY, RADIOLOGIST (Adjunct Physical Education Instructor) /TLC Pathology Reports: +/- 30 days of [...] the Encounter. The data comes from all CT treatment facilities. Date/Time Pathology Report Provider Source Jan 03, 2022 10:28 AM LR SURGICAL PATHOLOGY REPORT: STEFANY MILLER [place] LOCAL TITLE: LR SURGICAL PATHOLOGY REPORT [facility] STANDARD TITLE: PATHOLOGY REPORT DATE OF NOTE: JAN 03, 2022@10:28:01 ENTRY DATE: JAN 03, 2022@10:28:01 AUTHOR: NIURKA MILLER EXP COSIGNER: URGENCY: STATUS: COMPLETED $APHDR Reporting Lab: [facility] [CLIA# [id number]] [address] [place] [address] - - - - - - [...] automatically d ocumented from SURGERY package case #[id number] Field (#32) PRINCIPAL PRE-OP DIAGNOSIS, (#.72) OTHER [...] automatically d ocumented from SURGERY package case #[id number] Field (#34) PRINCIPAL POST-OP DIAG, (#.74) OTHER [...] Label: Lucas Meek Paperwork: Lucas Meek Cassette: [id number];..;KALYANI;.;405;[id number] Specimen is labeled: ES bx Received in formalin are several pieces of pale boyd and brown tissue, 1.2 x 0.7 cm in aggregate. Submitted entirely in 1 cassette [id number];..;KALYANI;.;405;[id number] SAW 12/15/2021 Microscopic exam: *+* MODIFIED REPORT *+* (Last modified: JAN 03, 2022@09:30:20 typed by NIURKA WADDELL) DIAGNOSIS: A. 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 Kendell long. TIARA Coombs was notified on 12/21/21. Modified on 01/03/22 to include report from [facility] stating that tumor is NEGATIVE for her2/ matheus amplification. The attending pathologist who signature mansoor ears on this report has reviewed all diagnostic slides and has edited t he gross and/or microscopic portion of this report in rendering the final pathologic diagnosis. [address] [address] CPT: 94394 /emely/ NIURKA Yeung MD Signed Jan 03, 2022@10:28 Performing Laboratory: Surgical Pathology Report Performed By: C[facility]Y [facility]TO[facility] [CLIA# [id number]] [address] [place] [address] $FTR - - - - - [...] - - LUCAS MEEK STANDARD FORM 515 ID:[id number] SEX:M :1950 AGE: 71 LOC: SDM END PCP: Isatu Todd /emely/ NIURKA MILLER Staff Signed: 01/03/2022 10:28 Dec 21, 2021 11:46 AM LR SURGICAL PATHOLOGY REPORT: STEFANY MILLER CAREY DOYLE [place] LOCAL TITLE: LR SURGICAL PATHOLOGY REPORT [facility] STANDARD TITLE: PATHOLOGY REPORT DATE OF NOTE: DEC 21, 2021@11:46:59 ENTRY DATE: DEC 21, 2021@11:46:59 AUTHOR: NIURKA MILLER EXP COSIGNER: URGENCY: STATUS: COMPLETED $APHDR Reporting Lab: [facility] [CLIA# [id number]] [address] [place] [facility] [place] [address] - - - - - - [...] automatically d ocumented from SURGERY package case #[id number] Field (#32) PRINCIPAL PRE-OP DIAGNOSIS, (#.72) OTHER [...] automatically d ocumented from SURGERY package case #[id number] Field (#34) PRINCIPAL POST-OP DIAG, (#.74) OTHER [...] Label: Lucas Meek Paperwork: Lucas Meek Cassette: [id number];..;KALYANI;.;405;[id number] Specimen is labeled: ES bx Received in formalin are several pieces of pale boyd and brown tissue, 1.2 x 0.7 cm in aggregate. Submitted entirely in 1 cassette [id number];..;KALYANI;.;405;[id number] SAW 12/15/2021 Microscopic exam: DIAGNOSIS: A. 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 Kendell longTIARA Barba was notified on 12/21/21. The attending pathologist who signature mansoor ears on this report has reviewed all diagnostic slides and has edited t he gross and/or microscopic portion of this report in rendering the final pathologic diagnosis. [address] [address] CPT: 77597 /emely/ NIURKA Yeung MD Signed Dec 21, 2021@11:46 Performing Laboratory: Surgical Pathology Report Performed By: [facility] [CLIA# [id number]] [address] [place] [address] $FTR - - - - - [...] - - LUCAS MEEK STANDARD FORM 515 ID:[id number] SEX:M :1950 AGE: 71 LOC: SDM END PCP: Isatu Todd /emely/ NIURKA Yeung MD Signed: 12/21/2021 11:46 Dec 06, 2021 03:30 PM LR [facility]OLOGY [facility] Reporting Lab: [facility] [CLIA# [id number]] [address] [place] [address] Accession [UID]: [id number] [[id number]] Receiv ed: Dec 06, 2021@16:14 Collection sample: BLOOD CUL T BOTTLE(NIRMAL/AERO)Collection date: Dec 06, 2021 15:30 Site/Specimen: BLOOD Provider: JELANI SÁNCHEZ Comment on specimen: LAC Test(s) ordered: BLOOD CULTURE ANAEROBI C....... completed: Dec 12, 2021 06:18 * BACTERIOLOGY FINAL REPORT => Dec 12, 2021 06:1 8 TECH CODE: [id number] Bacteriology Remark(s): NO GROWTH IN 5 DAYS =--=--=--=--=--=--=--=--=--=--=--=--=--= --=--=--=--=--=--=--=--=--=--=--=--=-- Performing Laboratory: Bacteriology Report Performed By: [facility] [CLIA# [id number]] [address] [place] [address] Dec 06, 2021 03:30 PM LR MICROBIOLOGY REPORT: [facility] Reporting Lab: [facility] [CLIA# [id number]] [address] [place] [address] Accession [UID]: [id number] [[id number]] Receiv ed: Dec 06, 2021@16:14 Collection sample: BLOOD CUL T BOTTLE(NIRMAL/AERO)Collection date: Dec 06, 2021 15:30 Site/Specimen: BLOOD Provider: JELANI SÁNCHEZ Comment on specimen: LAC Test(s) ordered: BLOOD CULTURE AEROBIC. ........ completed: Dec 12, 2021 06:17 * BACTERIOLOGY FINAL REPORT => Dec 12, 2021 06:1 7 TECH CODE: [id number] Bacteriology Remark(s): NO GROWTH IN 5 DAYS =--=--=--=--=--=--=--=--=--=--=--=--=--= --=--=--=--=--=--=--=--=--=--=--=--=-- Performing Laboratory: Bacteriology Report Performed By: [facility] [CLIA# [id number]] [address] [place] [address] Encounter Notes: All associated encounter notes This section contains the clinical notes associated to the Encounter. Date/Time Encounter Note(s) Provider Source Dec 15, 2021 03:50 PM PALLIATIVE CARE NURSING NOTE: IRVIN MELÉNDEZ [facility] LOCAL TITLE: PALLIATIVE CARE CAT OPERATOR NOTE [facility] STANDARD TITLE: PALLIATIVE CARE NURSING NOTE DATE OF NOTE: DEC 15, 2021@15:50 ENTRY DATE: DEC 15, 2021@15:50:28 AUTHOR: TIERRA MELÉNDEZ EXP COSIGNER: URGENCY: STATUS: COMPLETED RNCM met with this 89 y/o patient, with medical diagnosis of Stage IIIa adenocarcinoma of the lung n ow s/p treatment for aspiration pneumonia, found to have imaging and EGD finding s consistent with metastatic malignancy. Purpose of visit to provide introduction to palliative care program and services available. Patient is alert and oriented to pers on, place and time; verbally interactive, able to maintain eye contac t and engage in sustained conversation for ~ 1/2 hour. Assessed patient's understanding of palliative care. Per patient, he has had no prior experience with palliative care, and no ideas about what palliative care means or what it would have to offer him. RNCM provided basic education about purpose and goals of palli ative care and outpatient palliative team and services available at [facility]. Patient asked appropriate questions, verbalized understanding, and able to repeat back information accurately. He demonstrated good understanding of his current medical status and next steps in his treatment plan. He states that he had been experiencing pain, nausea, trouble breathing, but it's all doing be tter now. Per his understanding of prognosis: they need to wait f or tests...it doesn't look good...just need to hope for the best and prepare for the worst. He states that he has a follow-up appointme nt with his primary care provider, Dr. Gaspar, on 12/20/2021, and will be seeing his Oncologist at [facility], Dr. Fabian Cameron, when an appointment can be s cheduled. He expresses concern about his : I'm the optimist, she's the pessimist...she's anxiou s about all this. He does acknowledge feeling down and willingness to co ntinue on an antidepressant (currently on Sertraline) . Per patient he lives in small home on [place] in [place], with his , ronen rojas, [id number], granddaughter, and grandson. He also has a dog. He reports that he also has two older granddaughters who live with their mother. His immediate goals are to re turn home, and to spend time with family and at camp in [place]; he verbal ized that it is his granddaughter's birthday thi s weekend, and he is happy to be discharged from the hospital so he can be there. PLAN: 1. Outpatient Palliative Care consult 2. Per Inpatient Concrete Paving Supervisor, home care services kisha renteria (to be provided at patient's camp location) /emely/ TIERRA MELÉNDEZ Registered Nurse, [facility] Signed: 12/15/2021 15:54
--- OUTSIDE RECORDS SUMMARY | 2022-01-19 08:10 | XMS_ITS | Encounter Summary ---
:1950 Author Organization [facility] Address [address] [place] [id number] Support Name Relationship Address Phone YUSRA MEEK Unavailable [address] [facility] [place] [place] [address] YUSRA MEEK Unavailable [address] [facility] [place] [facility] [place] [address] CLAY MOSLEY Unavailable Unavailable SJ SANTACRUZ Unavailable [...] MEDICARE MEDICARE PART Jun 18, PART A [id number] DO KALYANI PATIENT (WNR) (M) A 2016 13A 1 UGLAS MEDICARE MEDICARE PART Jun 18, PART A [id number] MEEK DO PATIENT (WNR) (M) A 2017 VH81 2 UGLAS MEDICARE MEDICARE PART Jun 18, PART B [id number] KALYANIDO PATIENT (WNR) (M) B 2016 13A 1 UGLAS MEDICARE MEDICARE PART Jun 18, PART B [id number] KALYANIDO PATIENT (WNR) (M) B 2017 VH81 2 LAS UNITED MEDICARE MCR(Jun 18 [id number] Luz MEEK PATIENT HEALTHCARE ADVANTAGE NR) 2021 37 0 [facility] (WNR) Selected Encounter This section includes the information on record at [place] for the Encounter. Date/Time Encounter Type Encounter Reason Provider Source Description Dec 21, 2021 11:46 Outpatient EVENT (HISTORICAL) NIURKA MILLER AM Encounter [...] Date/Time Appointment Type Appointment Facili ty Name Jan 06, 2022 02:00 PM [place] [facility] Jan 10, 2022 11:30 AM AMB[facility] - MEDICINE [facility] Jan 24, 2022 08:00 AM [place] [facility] Feb 21, 2022 10:00 AM [...] The data comes from all [place] treatment [facility]. Test Date/Time Test Type Test Details Facility Name November 15, 2021 10:37 AM Consult Order [facility] CARE-PODIATRY Cons Human Relations Manager's Choice Dec 06, 2021 12:52 PM [place] [facility] Dec 06, 2021 03:24 PM [facility] [place] [facility] Dec 06, 2021 03:40 PM [place] In[place] Order [facility] Dec 15, 2021 08:41 AM Consult Order SPEECH PATHOLOG[place] OUTPATIENT Cons [facility] Human Relations Manager's Choice Jan 15, 2022 10:08 PM Consult Order [facility] CARE-PALLIATIVE CARE Cons Human Relations Manager's Choice Lab Results: +/- 30 days [...] Reference Range Comment Dec 15, 2021 [place] P4 GLU,BUN,CREAT,LYTES,CA Speci men Type: PLASMA 06:[address] [facility] Comment: Tests performed on JK-Group (405) SN:[id number] Ordering Provid er: ISATU TODD Report Released Date/Time: Dec 11, 2021 07:42 AM Reporting Lab: [facility] [facility] [address] [facility] [address] Performing Lab: [facility] T [facility] [address] [facility] [address] UREA NITROGEN 9 7-25 SODIUM 137 135-145 POTASSIUM 3.8 3.5-5.0 CHLORIDE 105 100-110 CARBON DIOXIDE 26 20-30 ANION GAP 6 4-16 GLUCOSE 102 H 65-100 CREATININE 0.64 0.5-1.5 CALCIUM 8.1 L 8.5-10.5 eGFR(CKD-EPI 2020) >90.0 >60 Dec 15, 2021 06:[address] [facility] CBC PROFILE Sp ecimen Type: BLOOD No comment enter ed. Ordering Provid er: ISATU TODD Report Released Date/Time: Dec 10, 2021 07:22 AM Reporting Lab: [place] [facility] [address] [facility] [address] Performing Lab: [place] [facility] [address] [facility] [address] WBC 5.7 4.5-11.0 RBC 4.22 L 4.23-5.66 [...] ABSOLUTE NRBC 0.00 0-0 Dec 14, 2021 [facility] CYTOGENETIC Specimen Type: ESOPHAGUS 02:59 PM [facility] FISH([facility] Comment: ~For T est: CYTOGENETIC FISH([facility]) ~FISH HER 2 NUE, FFPE See full report in [employer] Image display viewer/tab#LAB-Reference Ordering Provid er: NIURKA MILLER Report Released Date/Time: Dec 21, 2021 12:11 PM Reporting Lab: [facility] [address] [facility] [address] Performing Lab: [facility] CYTOGENETIC FISH([facility]) comment Dec 14, 2021 [facility] P4 GLU,BUN,CREAT,LYTES,CA Speci men Type: PLASMA 06:[address] [facility] Comment: Tests performed on JK-Group (405) SN:[id number] Ordering Provid er: ISATU TODD Report Released Date/Time: Dec 11, 2021 07:42 AM Reporting Lab: [facility] [address] [facility] [address] Performing Lab: [facility] [address] [facility] [address] UREA NITROGEN 10 7-25 SODIUM 137 135-145 POTASSIUM 4.0 3.5-5.0 CHLORIDE 104 100-110 CARBON DIOXIDE 25 20-30 ANION GAP 8 4-16 GLUCOSE 99 65-100 CREATININE 0.67 0.5-1.5 CALCIUM 8.2 L 8.5-10.5 eGFR(CKD-EPI 2020) >90.0 >60 Dec 14, 2021 06:27 AM [place] [facility] CBC PROFILE Sp ecimen Type: BLOOD No comment enter ed. Ordering Provid er: ISATU TODD Report Released Date/Time: Dec 10, 2021 07:22 AM Reporting Lab: [facility] [address] [facility] [address] Performing Lab: [facility] [address] [facility] [address] WBC 6.0 4.5-11.0 RBC 4.29 4.23-5.66 HGB [...] ABSOLUTE NRBC 0.00 0-0 Dec 13, 2021 [facility] GLU,BUN,CREAT,LYTES,CA Speci men Type: PLASMA 06:[address] [facility] Comment: Tests performed on JK-Group (242) SN:[id number] Ordering Provid er: ISATU TODD Report Released Date/Time: Dec 11, 2021 07:42 AM Reporting Lab: [facility] [address] [facility] [address] Performing Lab: [facility] [address] [facility] [address] UREA NITROGEN 12 7-25 SODIUM 136 135-145 [...] AM Reporting Lab: [facility] [address] [facility] [address] Performing Lab: [facility] [address] [facility] [address] WBC 5.6 4.5-11.0 RBC 4.28 4.23-5.66 HGB [...] ABSOLUTE NRBC 0.00 0-0 Dec 12, 2021 [facility] P4 GLU,BUN,CREAT,LYTES,CA Speci men Type: PLASMA 06:[address] [facility] Comment: Tests performed on JK-Group (405) SN:[id number] Ordering Provid er: ISATU TODD Report Released Date/Time: Dec 11, 2021 07:42 AM Reporting Lab: [facility] [address] [facility] [address] Performing Lab: [facility] [address] [facility] [address] UREA NITROGEN 11 7-25 SODIUM 139 135-145 [...] 2021 07:22 AM Reporting Lab: [facility] [address] [facility] [address] Performing Lab: [facility] [address] [facility] [address] WBC 5.5 4.5-11.0 RBC 4.37 4.23-5.66 HGB [...] Type: PLASMA Comment: Testin g Performed on JK-Group (405) SN:[id number] Ordering Provid er: ISATU TODD Report Released Date/Time: Dec 12, 2021 08:24 AM Reporting Lab: [place] [facility] [address] [facility] [address] Performing Lab: [place] [facility] [address] [facility] [address] MAGNESIUM 1.8 1.6-2.6 Dec 12, 2021 06:00 AM [place] [facility] PHOSPHORUS Sp ecimen Type: PLASMA Comment: Testin g Performed on JK-Group (405) SN:[id number] Ordering Provid er: ISATU TODD Report Released Date/Time: Dec 12, 2021 08:24 AM Reporting Lab: [place] [facility] [address] [place] [facility] [place] [address] Performing Lab: [place] [facility] [address] [place] [facility] [place] [address] PHOSPHORUS 3.1 2.5-5.0 Dec 11, 2021 06:15 AM [place] [facility] ELECTROLYTES Sp ecimen Type: PLASMA Comment: Tests performed on JK-Group (405) SN:[id number] Ordering Provid er: ISATU TODD Report Released Date/Time: Dec 10, 2021 07:22 AM Reporting Lab: [place] [facility] [address] [facility] [address] Performing Lab: [place] [facility] [address] [facility] [address] SODIUM 137 135-145 POTASSIUM 4.3 3.5-5.0 CHLORIDE 108 100-110 CARBON DIOXIDE 20 20-30 ANION GAP 9 4-16 Dec 11, 2021 06:15 AM [place] [facility] CBC PROFILE Sp ecimen Type: BLOOD Comment: Result s checked Ordering Provid er: ISATU TODD Report Released Date/Time: Dec 10, 2021 07:22 AM Reporting Lab: [place] [facility] [address] [facility] [address] Performing Lab: [facility] [address] [facility] [address] WBC 5.8 4.5-11.0 RBC 4.37 4.23-5.66 HGB [...] 0.00 0-0 Dec 11, 2021 06:00 AM [facility] PHOSPHORUS Sp ecimen Type: PLASMA Comment: Tests performed on JK-Group (969) SN:[id number] Results checked Ordering Provid er: ISATU TODD Report Released Date/Time: Dec 11, 2021 07:44 AM Reporting Lab: [place] [facility] [address] [facility] [address] Performing Lab: [place] [facility] [facility] [address] [facility] [address] PHOSPHORUS 3.0 2.5-5.0 Dec 10, 2021 08:05 AM [facility] PHOSPHORUS Sp ecimen Type: PLASMA Comment: [place] [id number] on Dec 10, 2021@08:31 Tests performed on Pham Songvice (405) SN:[id number] Ordering Provid er: ISATU TODD Report Released Date/Time: Dec 10, 2021 07:22 AM Reporting Lab: [place] [facility] [address] [place] [facility] [place] [address] Performing Lab: [place] [facility] [address] [place] [facility] [place] [address] PHOSPHORUS 1.8 L 2.5-5.0 Dec 10, 2021 08:05 AM [place] UREA NITROGEN Specimen Type: PLASMA [facility] Comment: [place] [id number] on Dec 10, 2021@08:31 Tests performed on Pham Songvice (405) SN:[id number] Ordering Provid er: ISATU TODD Report Released Date/Time: Dec 10, 2021 07:22 AM Reporting Lab: [place] [facility] [address] [place] [facility] [place] [address] Performing Lab: [place] [facility] [address] [place] [facility] [place] [address] UREA NITROGEN 8 7-25 Dec 10, 2021 08:05 AM [place] [facility] MAGNESIUM Sp ecimen Type: PLASMA Comment: [place] [id number] on Dec 10, 2021@08:31 Tests performed on Pham Songvice (405) SN:[id number] Ordering Provid er: ISATU TODD Report Released Date/Time: Dec 10, 2021 07:22 AM Reporting Lab: [place] [facility] [address] [place] [facility] [place] [address] Performing Lab: [place] [facility] [address] [place] [facility] [place] [address] MAGNESIUM 1.7 1.6-2.6 Dec 10, 2021 08:05 AM [place] [facility] GLUCOSE Sp ecimen Type: PLASMA Comment: [place] [id number] on Dec 10, 2021@08:31 Tests performed on Pham Songvice (405) SN:[id number] Ordering Provid er: ISATU TODD Report Released Date/Time: Dec 10, 2021 07:22 AM Reporting Lab: [place] [facility] [address] [place] [facility] [place] [address] Performing Lab: [place] [facility] [address] [place] [facility] [place] [address] GLUCOSE 144 H 65-100 Dec 10, 2021 08:05 AM [place] [facility] ELECTROLYTES Sp ecimen Type: PLASMA Comment: [place] [id number] on Dec 10, 2021@08:31 Tests performed on JK-Group (405) SN:[id number] Ordering Provid er: ISATU TODD Report Released Date/Time: Dec 10, 2021 07:22 AM Reporting Lab: [place] [facility] [address] [facility] [address] Performing Lab: [place] [facility] [address] [facility] [address] SODIUM 139 135-145 POTASSIUM 3.7 3.5-5.0 CHLORIDE 107 100-110 CARBON DIOXIDE 24 20-30 ANION GAP 8 4-16 Dec 10, 2021 08:05 AM [place] [facility] CALCIUM Sp ecimen Type: PLASMA Comment: [place] [id number] on Dec 10, 2021@08:31 Tests performed on JK-Group (405) SN:[id number] Ordering Provid er: ISATU TODD Report Released Date/Time: Dec 10, 2021 07:22 AM Reporting Lab: [place] [facility] [address] [facility] [address] Performing Lab: [place] [facility] [address] [facility] [address] CALCIUM 8.3 L 8.5-10.5 Dec 10, 2021 08:05 [place] CREATININE WITH eGFR Specime n Type: PLASMA AM [facility] PANEL Comment: [place] [id number] on Dec 10, 2021@08:31 Tests performed on JK-Group (405) SN:[id number] Ordering Provid er: ISATU TODD Report Released Date/Time: Dec 10, 2021 07:22 AM Reporting Lab: [place] [facility] [address] [facility] [address] Performing Lab: [place] [facility] [address] [facility] [address] CREATININE 0.78 0.5-1.5 eGFR(CKD-EPI 2020) >90.0 >60 Dec 10, 2021 08:05 AM [place] [facility] CBC PROFILE Sp ecimen Type: BLOOD No comment enter ed. Ordering Provid er: ISATU TODD Report Released Date/Time: Dec 10, 2021 07:22 AM Reporting Lab: [facility] [address] [facility] [address] Performing Lab: [facility] [address] [facility] [address] WBC 7.0 4.5-11.0 RBC 4.54 4.23-5.66 HGB [...] 0.00 0-0 Dec 09, 2021 06:46 AM [facility] MAGNESIUM Sp ecimen Type: PLASMA Comment: Tests performed on JK-Group 405 SN:[id number] Ordering Provid er: ISATU TODD Report Released Date/Time: Dec 08, 2021 10:23 AM Reporting Lab: [facility] [address] [facility] [address] Performing [facility]: [facility] [address] [facility] [address] MAGNESIUM 1.6 1.6-2.6 Dec 09, 2021 06:46 AM [facility] CBC PROFILE Sp ecimen Type: BLOOD No comment enter ed. Ordering Provid er: ISATU TODD Report Released Date/Time: Dec 08, 2021 05:00 PM Reporting Lab: [facility] [place] [facility] [address] [facility] [address] Performing Lab: [facility] [address] [facility] [address] WBC 7.1 4.5-11.0 RBC 4.40 4.23-5.66 HGB [...] 6.1 2.2-7.6 ABSOLUTE NRBC 0.00 0-0 Dec 09, 2021 [place] P4 GLU,BUN,CREAT,LYTES,CA Speci men Type: PLASMA 06:[address] [facility] Comment: Tests performed on JK-Group (405) SN:[id number] Ordering Provid er: ISATU TODD Report Released Date/Time: Dec 08, 2021 05:00 PM Reporting Lab: [facility] [address] [facility] [address] Performing Lab: [facility] [address] [facility] [address] UREA NITROGEN 6 L 7-25 SODIUM 134 L 135-145 POTASSIUM 3.7 3.5-5.0 CHLORIDE 103 100-110 CARBON DIOXIDE 23 20-30 ANION GAP 8 4-16 GLUCOSE 112 H 65-100 CREATININE 0.70 0.5-1.5 CALCIUM 8.1 L 8.5-10.5 eGFR(CKD-EPI 2020) >90.0 >60 Dec 08, 2021 06:39 AM [place] [facility] MAGNESIUM Sp ecimen Type: PLASMA Comment: Testin g Performed on JK-Group (405) SN:[id number] Ordering Provid er: ISATU TODD Report Released Date/Time: Dec 07, 2021 10:32 AM Reporting Lab: [facility] [address] [facility] [address] Performing Lab: [facility] [address] [facility] [address] MAGNESIUM 1.5 L 1.6-2.6 Dec 08, 2021 06:39 AM [place] [facility] CBC PROFILE Sp ecimen Type: BLOOD No comment enter ed. Ordering Provid er: ISATU TODD Report Released Date/Time: Dec 07, 2021 10:32 AM Reporting Lab: [facility] [address] [facility] [address] Performing Lab: [facility] [address] [facility] [address] WBC 8.4 4.5-11.0 RBC 4.75 4.23-5.66 HGB [...] ABSOLUTE NRBC 0.00 0-0 Dec 08, 2021 [facility] P4 GLU,BUN,CREAT,LYTES,CA Speci men Type: PLASMA 06:39 AM [facility] Comment: Testin g Performed on Pham Songvice (405) SN:[id number] Ordering Provid er: ISATU TODD Report Released Date/Time: Dec 07, 2021 10:32 AM Reporting Lab: [facility] [address] [facility] [address] Per[facility]: [facility] [address] [facility] [address] UREA NITROGEN 6 L 7-25 SODIUM 136 135-145 POTASSIUM 3.3 L 3.5-5.0 CHLORIDE 104 100-110 CARBON DIOXIDE 22 20-30 ANION GAP 10 4-16 GLUCOSE 133 H 65-100 CREATININE 0.76 0.5-1.5 CALCIUM 8.4 L 8.5-10.5 eGFR(CKD-EPI 2020) >90.0 >60 Dec 07, 2021 06:42 [facility] LIVER PROFILE Specimen Typ e: PLASMA AM [facility] Comment: Tests performed on Pham Songvice (405) SN:[id number] Ordering Provid er: PORFIRIO WALTERS Report Released Date/Time: Dec 06, 2021 06:57 PM Reporting Lab: [facility] [address] [facility] [address] Performing Lab: [facility] [address] [facility] [address] PROTEIN, TOTAL 5.7 L 6.0-8.5 ALBUMIN 2.4 L 3.2-5.0 BILIRUBIN, TOTAL 0.4 0.2-1.2 ALKALINE PHOSPHATASE 109 40-150 ALT(SGPT) 10 7-52 AST(SGOT) 15 5-34 FIB-4 SCORE 1.92 <2.67 Dec 07, 2021 [facility] P4 GLU,BUN,CREAT,LYTES,CA Speci men Type: PLASMA 06:42 AM [facility] Comment: Tests performed on Pham Songvice (405) SN:[id number] Ordering Provid er: PORFIRIO WALTERS Report Released Date/Time: Dec 06, 2021 06:57 PM Reporting Lab: [facility] [address] [facility] [address] Performing Lab: [facility] [address] [facility] [address] UREA NITROGEN 9 7-25 SODIUM 135 135-145 POTASSIUM 3.5 3.5-5.0 CHLORIDE 103 100-110 CARBON DIOXIDE 22 20-30 ANION GAP 10 4-16 GLUCOSE 92 65-100 CREATININE 0.73 0.5-1.5 CALCIUM 8.0 L 8.5-10.5 eGFR(CKD-EPI 2020) >90.0 >60 Dec 07, 2021 06:42 AM [facility] CBC PROFILE Specimen Type: BLOOD [facility] No comment enter ed. Ordering Provid er: PORFIRIO WALTERS Report Released Date/Time: Dec 06, 2021 06:57 PM Reporting Lab: [facility] [address] [facility] [address] Performing Lab: [facility] [address] [facility] [address] WBC 5.7 4.5-11.0 RBC 4.15 L 4.23-5.66 [...] [facility] %) AUTOMATED Comment: Tests performed on JK-Group (405) SN:[id number] Ordering Provid er: ISATU TODD Report Released Date/Time: Dec 07, 2021 10:28 AM Reporting Lab: [place] [facility] [address] [facility] [address] Performing Lab: [place] [facility] [address] [facility] [address] RETICULOCYTES (%) AUTOMATED 1.23 0. 6-2.0 RETICULOCYTES (ABS) AUTOMATED 0.052 0.030-0.090 Dec 06, 2021 09:45 [place] MRSA SURVL NARES Specimen Ty pe: NARES PM [facility] DNA No comment enter ed. Ordering Provid er: ALVARO VARGHESE Report Released Date/Time: Dec 07, 2021 02:20 AM Reporting Lab: [place] [facility] [address] [facility] [address] Performing Lab: [place] [facility] [address] [facility] [address] MRSA SURVL NARES DNA NEGATIVE NEGATIVE Dec 06, 2021 06:00 [place] URINALYSIS W/REFLEX TO Speci men Type: URINE PM [facility] CULTURE No comment enter ed. Ordering Provid er: JELANI SÁNCHEZ Report Released Date/Time: Dec 06, 2021 11:57 AM Reporting Lab: [place] [facility] [address] [facility] [address] Performing Lab: [place] [facility] [address] [facility] [address] URINE COLOR Arlin YELLOW SPECIFIC GRAVITY 1.029 [...] 21, R[place] VARIANT Comment: https://www.cdc.gov/coronavirus/2019-ncov/cases-updates/variant- surveillance/variant-info.html The Microstaq SARS CoV 2 PredicSis Research Assay-GX is a next-generation sequencing (NGS) assa 2021 [facility] SEQUENCING y that determine s the complete genome sequence of the SARS-CoV-2 virus. The assay contains variant-tolerant primers to broaden and improve the coverage for variant detection and increase the sensitivity 12:00 [facility] PNL() of the panel to enable detection from lower viral titer samples. The assay is run on the [employer] Sequencer, which performs automated library preparation, sequencing, analysis, and reporting. PM The sequence an alysis includes determination of viral phylogenetic lineage by comparison to the reference strain Wuhan-Hu-1, GenBank: [id number]. Sequence determination may not be possible owing [...] and its performance characteristics determined by the [facility] Molecular Diagnostics Laboratory, which is certified under the Clinical Laboratory Improveme nt Amendments (C MARCO) as qualified to perform high complexity clinical laboratory testing. This test is validated for clinical use at [facility] and should not be regarded as investigational or for research. The FDA does not require this test to go through premarket FDA review, and therefore it has not been cleared or approved by the FDA. This report was reviewed and approved by the on-service pathologist. Ordering Provid er: JELANI SÁNCHEZ Report Released Date/Time: Dec 06, 2021 01:13 PM Reporting Lab: [facility] [address] [facility] [address] Performing Lab: [facility] [address] [place] [address] SARS-CoV-2 CLADE() 22C (OMICRON) SARS-CoV-2 LINEAGE() BA.2.12.1 Dec 06, 2021 12:00 [facility] COVID-19 AG SCREEN Specimen Type: NASAL CAVITY PM [facility] PANEL BINAX(405) Comment: Testi ng Performed By: Mike Briscoe Ordering Provid er: JELANI SÁNCHEZ Report Released Date/Time: Dec 08, 2021 08:23 AM Reporting Lab: [place] [facility] [address] [facility] [address] Performing Lab: [facility] [address] [facility] [address] COVID-19 AG SCRN(j BINAX) POSITIVE HH NE G Dec 06, 2021 12:00 PM [facility] TROPONIN II Sp ecimen Type: PLASMA Comment: Tests performed on Pham [employer] (405) SN:[id number] Ordering Provid er: JELANI SÁNCHEZ Report Released Date/Time: Dec 06, 2021 11:57 AM Reporting Lab: [place] [facility] [address] [facility] [address] Performing Lab: [facility] [address] [facility] [address] TROPONIN II 0.03 0.00-0.29 Dec 06, 2021 [facility] P4 GLU,BUN,CREAT,LYTES,CA Speci men Type: PLASMA 12:00 PM [facility] Comment: Testin g Performed on [employer] (405) SN:[id number] Ordering Provid er: JELANI SÁNCHEZ Report Released Date/Time: Dec 06, 2021 11:57 AM Reporting Lab: [place] [facility] [address] [facility] [address] Performing Lab: [facility] [address] [facility] [address] UREA NITROGEN 13 7-25 SODIUM 138 135-145 POTASSIUM 3.8 3.5-5.0 CHLORIDE 103 100-110 CARBON DIOXIDE 23 20-30 ANION GAP 12 4-16 GLUCOSE 105 H 65-100 CREATININE 0.90 0.5-1.5 CALCIUM 8.7 8.5-10.5 eGFR(CKD-EPI 2020) >90.0 >60 Dec 06, 2021 12:00 PM [facility] BNP(P) Sp ecimen Type: PLASMA Comment: Tests performed on [employer] (405) [id number] Ordering Provid er: JELANI SÁNCHEZ Report Released Date/Time: Dec 06, 2021 11:57 AM Reporting Lab: [facility] [address] [facility] [address] Performing Lab: [facility] [address] [facility] [address] BNP(P) 224.8 H 10-100 Dec 06, 2021 12:00 PM [facility] LIVER PROFILE Sp ecimen Type: PLASMA Comment: Testin g Performed on [employer] (405) [id number] Ordering Provid er: JELANI SÁNCHEZ Report Released Date/Time: Dec 06, 2021 11:57 AM Reporting Lab: [facility] [address] [facility] [address] Performing Lab: [facility] [address] [place] [facility] [place] [address] PROTEIN, TOTAL 6.6 6.0-8.5 ALBUMIN 2.8 L 3.2-5.0 BILIRUBIN, TOTAL 0.6 0.2-1.2 ALKALINE PHOSPHATASE 134 40-150 ALT(SGPT) 13 7-52 AST(SGOT) 18 5-34 FIB-4 SCORE 1.94 <2.67 Dec 06, 2021 [facility] COVID-19+FLU/RSV DIAGNOSTIC Spe cimen Type: NASOPHARYNX 12:00 PM [facility] PANEL(405) Comment: Tests performed on [employer] (405) Critical results called to and read back by: ALESHIA WILKINSON RN 12/06/21 @ 1312 Ordering Provid er: JELANI SÁNCHEZ Report Released Date/Time: Dec 06, 2021 11:57 AM Reporting Lab: [facility] [address] [facility] [address] Performing Lab: [facility] [address] [facility] [address] FLU A(PCR) NEGATIVE NEGATIVE FLU B(PCR) NEGATIVE NEGATIVE RSV(PCR) NEGATIVE NEGATIVE COVID-19(VCF-equ-IRDUBOIJD) DETECTED HH NO T DETECTED Dec 06, 2021 12:00 PM [facility] CBC PROFILE Sp ecimen Type: BLOOD No comment enter ed. Ordering Provid er: JELANI SÁNCHEZ Report Released Date/Time: Dec 06, 2021 11:57 AM Reporting Lab: [facility] [address] [facility] [address] [facility] [address] [facility] [address] WBC 7.2 4.5-11.0 RBC 4.86 4.23-5.66 HGB [...] place. Date/Time Smoking Status/Tobacco Use Comment [facility] Apr 01, 2020 01:16 PM QUIT [...] AM QUIT TOBACCO USE IN PAST YEAR [facility] Mar 16, 2016 12:50 PM V1-PT DECLINES REF TO TOBACCO [facility] CESS [facility] Mar 16, 2016 12:50 PM V1-PT THINKING ABOUT QUIT [facility] TOBACCO USE Aug 12, 2015 08:48 AM CURRENT SMOKER [facility] Radiology Reports: +/- 30 days of [...] comes from all [place] treatment facilities. Date/Time Radiology Report Provider Source Dec 13, 2021 12:57 PM MRI ABDOMEN W/WO CONTRAST: MARYELLEN LONG [place] LUCAS MEEK N [id number] -1950 M [facility] Exm Date: DEC 13, 2021@12:57 Req Phys: ISATU TODD Loc: OP Unknown/0 12-15-2021@13:20 Img Loc: MRI IMAGING (OOS) Service: ZZGENERAL MEDICINE (Case [id number] COMPLETE) MRI ABDOMEN W/WO CONTRAST (M RI Detailed) CPT:01850 Reason for Study: further characterization of a [...] new lyphadenopathy REQUESTING MD: Isatu Todd PAGER: [phone] PHONE: [phone] Weight: 232.2 lb [105.32 kg] (12/12/2021 05:00) [...] patient will need to arrange for a fence post driver to take him/her home after the [...] 15, 2021 Date Verified: DEC 15, 2021 [place] E-Sig:/ES/MARYELLEN LONG Report: MRI ABDOMEN W/WO CONTRAST [...] hepatic lobe. The gallbladder remains contracted, limiting i ts evaluation. No biliary duct dilatation. Spleen: Measures [...] MALIGNANCY Primary Interpreting Staff: Staff AMELIA THOMAS ([place]) / Dec 10, 2021 09:[address] ABDOMEN & PELVIS: [facility]UC[facility] N [id number] -1950 [facility] Exm Date: DEC 10, 2021@09:30 Req Phys: ISATU TODD Loc: 1S MED/12-10@10:57 Img Loc: CT SCAN (OOS) Service: [facility] MEDICINE (Case [id number] COMPLETE) CT ABD & PELVIS WITHOUT CONT RAST (CT Detailed) CPT:23797 Reason for Study: 71 yo male with [...] INDEX - NO HEIGHTS FOUND Pager number: [phone] STAT orders MUST be call ed to RADIOLOGY [phone] to speak to the appropriate all terrain vehicle technician. Report Status: Verified Date Reported: DEC 10, 2021 Date Verified: DEC 10, 2021 [place] E-Sig: Report: EXAM: CT abdomen and pelvis [...] ph nodes. READING PHYSICIAN: Ramone Munoz D.O. -[phone] 12/10/2021 10:55 EDT [facility] [phone] (For Medical Practitioner Use Only ) [address] [place] [address], [place] [address], [address] [place] [address] Attention Patients / Veterans: If you have ques tions or concerns about these test results, please contact [facility] or primary care team. Primary Diagnostic Code: SIGNIFICANT ABNORMALIT Y, ATTN NEEDED Primary Interpreting Staff: RADIOLOGY,OUTSIDE SERVICE, Staff Physician / Dec 09, 2021 07:34 AM BASW (MODIFIED): JESSIE CHENEY [facility] LUCAS MEEK N [id number] -1950 [facility] Exm Date: DEC 09, 2021@07:34 Req Phys: ISATU TODD Loc: 1S MED/12-09@11:26 Img Loc: XRAY (OOS) Service: GENERAL MEDICINE (Case [id number] COMPLETE) BASW (MODIFIED) (EUNICE Alex d) CPT:95633 Contrast Media : Barium Reason for Study: dysphagia ?esophageal spasm Clinical History: Report Status: Verified Date Reported: DEC 09, 2021 Date Verified: DEC 09, 2021 [place] E-Sig:/ES/JESSIE CHENEY Report: BASW (MODIFIED) , 12/09/2021 [...] REQUIRED Primary Interpreting Staff: JESSIE CHENEY, RADIOLOGIST ([place]) /[facility] Dec 06, 2021 12:[address] CHEST (INCLUDES ADRENALS): JESSIE CHENEY [facility] LUCAS MEEK N [id number] -[address] [facility] Exm Date: DEC 06, 2021@12:59 Req Phys: JELANI SÁNCHEZ [facility] Loc: [facility] ED DAYS M 1RD (Req'g Loc) Img Loc: CT SCAN (OOS) Service: Unknown (Case [id number] COMPLETE) CT THORAX W/O CONT (CT Detai led) CPT:43907 Reason for Study: Opacification right chest Clinical History: No contrast allergy BUN: 13 (12/06/21 12:00) CREATI: 0.90 (12/06/21 12:00) eGFR 05/16/21 09:43 52 L Weight: 232.6 lb [105.51 kg] (12/06/2021 11:40) BODY MASS INDEX - NO HEIGHTS FOUND Pager number: [phone] STAT orders MUST be called t o RADIOLOGY [phone] to speak to the appropriate all terrain vehicle technician. Indications - Other: Opacification right chest, covid positive, lung cancer histo Report Status: Verified Date Reported: DEC 06, 2021 Date Verified: DEC 06, 2021 [place] E-Sig:/ES/JESSIE CHENEY Report: CT THORAX W/O CONT [...] REQUIRED Primary Interpreting Staff: JESSIE CHENEY, RADIOLOGIST ([place]) Primary Interpreting Resident: PRINCE CHAMPION, Resident /BR Dec 06, 2021 11:58 AM CHEST SINGLE VIEW: JESSIE CHENEY [place] LUCAS MEEK N [id number] -1950 M [facility] Exm Date: DEC 06, 2021@11:58 Req Phys: JELANI SÁNCHEZ Pat Loc: [facility] ED DAYS M 1RD (Req'g Loc) Img Loc: XRAY (OOS) Service: Unknown (Case [id number] COMPLETE) CHEST SINGLE VIEW (RAD Detai led) CPT:69520 Proc Modifiers : PORTABLE EXAM Reason for Study: SOB, home covid test positive Clinical History: Report Status: Verified Date Reported: DEC 06, 2021 Date Verified: DEC 06, 2021 [place] E-Sig:/ES/JESSIE CHENEY Report: Exam type: Chest x-ray [...] IMMEDIATE ATTENTION REQUIRED Primary Interpreting Staff: JESSIE CHENEY RADIOLOGIST ([place]) /[facility] Pathology Reports: +/- 30 days of the [...] MILLER LOCAL TITLE: LR SURGICAL PATHOLOGY REPORT [facility] STANDARD TITLE: PATHOLOGY REPORT DATE OF NOTE: JAN 03, 2022@10:28:01 ENTRY DATE: JAN 03, 2022@10:28:01 AUTHOR: NIURKA MILLER EXP COSIGNER: URGENCY: STATUS: COMPLETED $APHDR Reporting Lab: [facility] [CLIA# [id number]] [address] [place] [address] - - - - - - [...] Submitted by: ISATU TODD Date obtained: Marizol 2021 14:59 - - - - - [...] automatically d ocumented from SURGERY package case #[id number] Field (#32) PRINCIPAL PRE-OP DIAGNOSIS, (#.72) OTHER [...] automatically d ocumented from SURGERY package case #[id number] Field (#34) PRINCIPAL POST-OP DIAG, (#.74) OTHER [...] Label: Lucas Meek Paperwork: Lucas Meek Cassette: [id number];..;KALYANI;.;405;[phone] Specimen is labeled: ES bx Received in formalin are several pieces of pale boyd and brown tissue, 1.2 x 0.7 cm in aggregate. Submitted entirely in 1 cassette [id number];..;KALYANI;.;405;[id number] SAW 12/15/2021 Microscopic exam: *+* MODIFIED REPORT *+* (Last modified: JAN 03, 2022@09:30:20 typed by NIURKA WADDELL) DIAGNOSIS: A. 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 Kendell long. TIARA Coombs was notified on 12/21/21. Modified on 01/03/22 to include report from [facility] stating that tumor is NEGATIVE for her2/ matheus amplification. The attending pathologist who signature mansoor ears on this report has reviewed all diagnostic slides and has edited t he gross and/or microscopic portion of this report in rendering the final pathologic diagnosis. [address] [address] CPT: 39734 /emely/ NIURKA Yeung MD Signed Jan 03, 2022@10:28 Performing Laboratory: Surgical Pathology Report Performed By: [facility] [CLIA# [id number]] [address] [place] [address] $FTR - - - - - [...] - - LUCAS MEEK STANDARD FORM 515 ID:[id number] SEX:M :1950 AGE: 71 LOC: SDM END PCP: Isatu Todd /charmaine Yeung MD Signed: 01/03/2022 10:28 Dec 21, 2021 11:46 AM LR SURGICAL PATHOLOGY REPORT: STEFANY MILLER LOCAL TITLE: LR SURGICAL PATHOLOGY REPORT [facility] STANDARD TITLE: PATHOLOGY REPORT DATE OF NOTE: DEC 21, 2021@11:46:59 ENTRY DATE: DEC 21, 2021@11:46:59 AUTHOR: NIURKA MILLER EXP COSIGNER: URGENCY: STATUS: COMPLETED $APHDR Reporting Lab: [facility] [CLIA# [id number]] [address] [place] [facility] [address] - - - - - - [...] automatically d ocumented from SURGERY package case #[id number] Field (#32) PRINCIPAL PRE-OP DIAGNOSIS, (#.72) OTHER [...] automatically d ocumented from SURGERY package case #[id number] Field (#34) PRINCIPAL POST-OP DIAG, (#.74) OTHER [...] Label: Lucas Meek Paperwork: Lucas Meek Cassette: [id number];..;KALYANI;.;405;[id number] Specimen is labeled: ES bx Received in formalin are several pieces of pale boyd and brown tissue, 1.2 x 0.7 cm in aggregate. Submitted entirely in 1 cassette [id number];..;KALYANI;.;405;[id number] SAW 12/15/2021 Microscopic exam: DIAGNOSIS: A. 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 Kendell long. TIARA Coombs was notified on 12/21/21. The attending pathologist who signature mansoor ears on this report has reviewed all diagnostic slides and has edited t he gross and/or microscopic portion of this report in rendering the final pathologic diagnosis. [address] [address] CPT: 52948 /emely/ NIURKA Yeung MD Signed Dec 21, 2021@11:46 Performing Laboratory: Surgical Pathology Report Performed By: [facility] [CLIA# [id number]] [address] [place] [address] $FTR - - - - - [...] - - LUCAS MEEK STANDARD FORM 515 ID:[id number] SEX:M :1950 AGE: 71 LOC: SDM END PCP: Isatu Todd /emely/ NIURKA Yeung MD Signed: 12/21/2021 11:46 Dec 06, 2021 03:30 PM LR MICROBIOLOGY REPORT: [facility] Reporting Lab: [facility] [CLIA# [id number]] [address] [place] [address] Accession [UID]: [id number] [[id number]] Receiv ed: Dec 06, 2021@16:14 Collection sample: BLOOD CUL T BOTTLE(NIRMAL/AERO)Collection date: Dec 06, 2021 15:30 Site/Specimen: BLOOD Provider: JELANI SÁNCHEZ Comment on specimen: LAC Test(s) ordered: BLOOD CULTURE ANAEROBI C....... completed: Dec 12, 2021 06:18 * BACTERIOLOGY FINAL REPORT => Dec 12, 2021 06:1 8 TECH CODE: [id number] Bacteriology Remark(s): NO GROWTH IN 5 DAYS =--=--=--=--=--=--=--=--=--=--=--=--=--= --=--=--=--=--=--=--=--=--=--=--=--=-- Performing Laboratory: Bacteriology Report Performed By: [facility] [CLIA# [id number]] [address] [place] [address] Dec 06, 2021 03:30 PM LR MICROBIOLOGY REPORT: [facility] Reporting Lab: [facility] [CLIA# [id number]] [address] [place] [address] Accession [UID]: [id number] [[id number]] Receiv ed: Dec 06, 2021@16:14 Collection sample: BLOOD CUL T BOTTLE(NIRMAL/AERO)Collection date: Dec 06, 2021 15:30 Site/Specimen: BLOOD Provider: JELANI SÁNCHEZ Comment on specimen: LAC Test(s) ordered: BLOOD CULTURE AEROBIC. ........ completed: Dec 12, 2021 06:17 * BACTERIOLOGY FINAL REPORT => Dec 12, 2021 06:1 7 TECH CODE: [id number] Bacteriology Remark(s): NO GROWTH IN 5 DAYS =--=--=--=--=--=--=--=--=--=--=--=--=--= --=--=--=--=--=--=--=--=--=--=--=--=-- Performing Laboratory: Bacteriology Report [facility] [CLIA# [id number]] [address] [place] [address] Encounter Notes: All associated encounter notes This section contains the clinical notes associated to the Encounter. Date/Time Encounter Note(s) Provider Source Dec 21, 2021 11:46 AM PATHOLOGY REPORT: NIURKA MILLER [facility] LOCAL TITLE: SURGICAL PATHOLOGY REPORT [facility] STANDARD TITLE: PATHOLOGY REPORT DATE OF NOTE: DEC 21, 2021@11:46:59 ENTRY DATE: DEC 21, 2021@11:46:59 AUTHOR: NIURKA MILLER EXP COSIGNER: URGENCY: STATUS: COMPLETED $APHDR Reporting Lab: [facility] [CLIA# [id number]] [address] [place] [address] - - - - - - [...] automatically d ocumented from SURGERY package case #[id number] Field (#32) PRINCIPAL PRE-OP DIAGNOSIS, (#.72) OTHER [...] automatically d ocumented from SURGERY package case #[id number] Field (#34) PRINCIPAL POST-OP DIAG, (#.74) OTHER [...] Name Label: Lucas Meek Paperwork: Lucas Meek Lei Cassette: [id number];..;KALYANI;.;405;[id number] Specimen is labeled: ES bx Received in formalin are several pieces of pale boyd and brown tissue, 1.2 x 0.7 cm in aggregate. Submitted entirely in 1 cassette [id number];..;KALYANI;.;405;[id number] SAW 12/15/2021 Microscopic exam: DIAGNOSIS: A. 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 Kendell long. TIARA Coombs was notified on 12/21/21. The attending pathologist who signature mansoor ears on this report has reviewed all diagnostic slides and has edited t he gross and/or microscopic portion of this report in rendering the final pathologic diagnosis. [address] [address] CPT: 81404 /emely/ NIURKA Yeung MD Signed Dec 21, 2021@11:46 Performing Laboratory: Surgical Pathology Report Performed By: [facility] [CLIA# [id number]] [address] [place] [address] $FTR - - - - - [...] - - LUCAS MEEK STANDARD FORM 515 ID:[id number] SEX:M :1950 AGE: 71 LOC: SDM END PCP: Isatu Todd /charmaine Yeung MD Signed: 12/21/2021 11:46
--- OUTSIDE RECORDS SUMMARY | 2022-01-19 08:11 | XMS_ITS | Encounter Summary ---
:1950 Author Organization [facility] Address [address] [place] [id number] Support Name Relationship Address Phone YUSRA MEEK Unavailable [address] [place] [facility] [place] [address] YUSRA MEEK Unavailable [address] [place] [facility] [place] [address] CLAY MOSLEY Unavailable Unavailable SJ SANTACRUZ Unavailable [...] MEDICARE MEDICARE PART Jun 18, PART A [id number] DO KALYANI PATIENT (WNR) (M) A 2016 13A 1 UGLAS MEDICARE MEDICARE PART Jun 18, PART B [id number] DO KALYANI PATIENT (WNR) (M) B 2016 13A 1 LAS MEDICARE MEDICARE PART Jun 18, PART A [id number] KALYANIDO PATIENT (WNR) (M) A 2017 VH81 2 LAS MEDICARE MEDICARE PART Jun 18, PART B [id number] DO KALYANI PATIENT (WNR) (M) B 2017 VH81 2 UGLAS UNITED MEDICARE MCR(Jun 18 [id number] Luz MEEK PATIENT HEALTHCARE ADVANTAGE NR) 2021 37 0 [facility] (WNR) Selected Encounter This section includes the [place] at [place] for the Encounter. Date/Time Encounter Type Encounter Description Reason Provider Source Dec 22, 2021 08:46 Outpatient Encounter TELEPHONE TRIAGE AM IHE Encounter [...] - [place] [facility] Jan 10, 2022 11:30 AM AMBULATORY - MEDICINE [facility] Jan 24, 2022 08:00 AM [place] [facility] Feb 21, 2022 10:00 AM [place] [facility] Mar 21, 2022 10:30 AM AMBULATORY [...] The data comes from all [place] treatment [facility]. Test Date/Time Test Type Test Details Facility Name November 15, 2021 10:37 AM Consult Order [facility] CARE-PODIATRY Cons Supervisor Doping's Choice Dec 06, 2021 12:52 PM Pharmacy [place] Infusion Order [facility] Dec 06, 2021 03:24 PM [place]acy [place] [facility] Dec 06, 2021 03:40 PM [place]acy [place] [facility] Dec 15, 2021 08:41 AM Consult Order SPEECH PATHOLOGY [place] OUTPATIENT Cons [facility] Supervisor Doping's Choice Jan 15, 2022 10:08 PM Consult Order [facility] CARE-PALLIATIVE CARE Cons Supervisor Doping's Choice Lab Results: +/- 30 days of [...] GLU,BUN,CREAT,LYTES,CA Speci men Type: PLASMA 06:43 AM [facility] Comment: Tests performed on Cloakware (405) SN:[id number] Ordering Provid er: ISATU TODD Report Released Date/Time: Dec 11, 2021 07:42 AM Reporting Lab: [facility] [address] [facility] [facility] [address] Performing Lab: [facility] [address] [facility] [facility] [address] UREA NITROGEN 9 7-25 SODIUM 137 135-145 POTASSIUM 3.8 3.5-5.0 CHLORIDE 105 100-110 CARBON DIOXIDE 26 20-30 ANION GAP 6 4-16 GLUCOSE 102 H 65-100 CREATININE 0.64 0.5-1.5 CALCIUM 8.1 L 8.5-10.5 eGFR(CKD-EPI 2020) >90.0 >60 Dec 15, 2021 06:43 AM [place] [facility] CBC PROFILE Sp ecimen Type: BLOOD No comment enter ed. Ordering Provid er: ISATU TODD Report Released Date/Time: Dec 10, 2021 07:22 AM Reporting Lab: [facility] [address] [facility] [address] Performing Lab: [facility] [address] [facility] [address] WBC 5.7 4.5-11.0 RBC 4.22 L 4.23-5.66 [...] ABSOLUTE NRBC 0.00 0-0 Dec 14, 2021 [facility] CYTOGENETIC Specimen Type: ESOPHAGUS 02:59 PM [facility] FISH([facility] Comment: ~For T est: CYTOGENETIC FISH([facility]) ~FISH HER 2 NUE, FFPE See full report in [employer] Image display viewer/tab#LAB-Reference Ordering Provid er: NIURKA MILLER Report Released Date/Time: Dec 21, 2021 12:11 PM Reporting Lab: [facility] [address] [facility] [facility] [address] Performing Lab: [facility] CYTOGENETIC FISH([facility]) comment Dec 14, 2021 [facility] P4 GLU,BUN,CREAT,LYTES,CA Speci men Type: PLASMA 06:27 AM [facility] Comment: Tests performed on Cloakware (405) SN:[id number] Ordering Provid er: ISATU TODD Report Released Date/Time: Dec 11, 2021 07:42 AM Reporting Lab: [facility] [address] [facility] [facility] [address] [facility] [address] [facility] [facility] [address] UREA NITROGEN 10 7-25 SODIUM 137 135-145 [...] 2021 07:22 AM Reporting Lab: [facility] [address] [facility] [facility] [address] Performing Lab: [facility] [address] [facility] [facility] [address] WBC 6.0 4.5-11.0 RBC 4.29 4.23-5.66 HGB [...] NRBC 0.00 0-0 Dec 13, 2021 [facility] GLU,BUN,CREAT,LYTES,CA Speci men Type: PLASMA 06:34 AM [facility] Comment: Tests performed on Cloakware 405 SN:[id number] Ordering Provid er: ISATU TODD Report Released Date/Time: Dec 11, 2021 07:42 AM Reporting Lab: [facility] [address] [facility] [facility] [address] Performing Lab: [facility] [address] [facility] [facility] [address] UREA NITROGEN 12 7-25 SODIUM 136 135-145 [...] Lab: [facility] [address] [facility] [facility] [address] Performing Lab: [facility] [address] [facility] [address] WBC 5.6 4.5-11.0 RBC 4.28 4.23-5.66 HGB [...] GLU,BUN,CREAT,LYTES,CA Speci men Type: PLASMA 06:21 AM [facility] Comment: Tests performed on Cloakware (405) SN:[id number] Ordering Provid er: ISATU TODD Report Released Date/Time: Dec 11, 2021 07:42 AM Reporting Lab: [facility] [address] [facility] [facility] [address] Performing Lab: [facility] [address] [facility] [facility] [address] UREA NITROGEN 11 7-25 SODIUM 139 135-145 [...] 10, 2021 07:22 AM Reporting Lab: [facility] [address] [facility] [facility] [address] Performing Lab: [facility] [address] [facility] [facility] [address] WBC 5.5 4.5-11.0 RBC 4.37 4.23-5.66 HGB [...] Type: PLASMA Comment: Testin g Performed on Cloakware (405) SN:[id number] Ordering Provid er: ISATU TODD Report Released Date/Time: Dec 12, 2021 08:24 AM Reporting Lab: [place] [facility] [address] [facility] [facility] [address] Performing Lab: [place] [facility] [address] [facility] [address] MAGNESIUM 1.8 1.6-2.6 Dec 12, 2021 06:00 AM [place] [facility] PHOSPHORUS Sp ecimen Type: PLASMA Comment: Testin g Performed on Cloakware (405) SN:[id number] Ordering Provid er: ISATU TODD Report Released Date/Time: Dec 12, 2021 08:24 AM Reporting Lab: [place] [facility] [address] [facility] [address] Performing Lab: [place] [facility] [address] [facility] [address] PHOSPHORUS 3.1 2.5-5.0 Dec 11, 2021 06:15 AM [place] [facility] ELECTROLYTES Sp ecimen Type: PLASMA Comment: Tests performed on Cloakware (405) SN:[id number] Ordering Provid er: ISATU TODD Report Released Date/Time: Dec 10, 2021 07:22 AM Reporting Lab: [place] [facility] [address] [facility] [address] Performing Lab: [place] [facility] [address] [facility] [address] SODIUM 137 135-145 POTASSIUM 4.3 3.5-5.0 CHLORIDE 108 100-110 CARBON DIOXIDE 20 20-30 ANION GAP 9 4-16 Dec 11, 2021 06:15 AM [place] [facility] CBC PROFILE Sp ecimen Type: BLOOD Comment: Result s checked Ordering Provid er: ISATU TODD Report Released Date/Time: Dec 10, 2021 07:22 AM Reporting Lab: [place] [facility] [address] [facility] [address] Performing Lab: [place] [facility] [address] [facility] [facility] [address] WBC 5.8 4.5-11.0 RBC 4.37 4.23-5.66 HGB [...] 0.00 0-0 Dec 11, 2021 06:00 AM [place] [facility] PHOSPHORUS Sp ecimen Type: PLASMA Comment: Tests performed on Cloakware (405) SN:[id number] Results checked Ordering Provid er: ISATU TODD Report Released Date/Time: Dec 11, 2021 07:44 AM Reporting Lab: [place] [facility] [facility] [address] [facility] [address] Performing Lab: [place] [facility] [address] [facility] PHOSPHORUS 3.0 2.5-5.0 Dec 10, 2021 08:05 AM [place] [facility] MAGNESIUM Sp ecimen Type: PLASMA Comment: [place] [id number] on Dec 10, 2021@08:31 Tests performed on Pham Manager Client Support (405) SN:[id number] Ordering Provid er: ISATU TODD Report Released Date/Time: Dec 10, 2021 07:22 AM Reporting Lab: [place] [facility] [address] [facility] [place] [address] Performing Lab: [place] [facility] [address] [place] [facility] [place] [address] MAGNESIUM 1.7 1.6-2.6 Dec 10, 2021 08:05 AM [place] [facility] PHOSPHORUS Sp ecimen Type: PLASMA Comment: [place] [id number] on Dec 10, 2021@08:31 Tests performed on Pham Manager Client Support (405) SN:[id number] Ordering Provid er: ISATU TODD Report Released Date/Time: Dec 10, 2021 07:22 AM Reporting Lab: [place] [facility] [address] [place] [facility] [place] [address] Performing Lab: [place] [facility] [address] [place] [facility] [place] [address] PHOSPHORUS 1.8 L 2.5-5.0 Dec 10, 2021 08:05 AM [place] UREA NITROGEN Specimen Type: PLASMA [facility] Comment: [place] [id number] on Dec 10, 2021@08:31 Tests performed on Pham Manager Client Support (405) SN:[id number] Ordering Provid er: ISATU TODD Report Released Date/Time: Dec 10, 2021 07:22 AM Reporting Lab: [place] [facility] [address] [place] [facility] [place] [address] Performing Lab: [place] [facility] [address] [place] [facility] [place] [address] UREA NITROGEN 8 7-25 Dec 10, 2021 08:05 AM [place] [facility] GLUCOSE Sp ecimen Type: PLASMA Comment: [place] [id number] on Dec 10, 2021@08:31 Tests performed on Pham Manager Client Support (405) SN:[id number] Ordering Provid er: ISATU TODD Report Released Date/Time: Dec 10, 2021 07:22 AM Reporting Lab: [place] [facility] [address] [place] [facility] [place] [address] Performing Lab: [place] [facility] [address] [place] [facility] [place] [address] GLUCOSE 144 H 65-100 Dec 10, 2021 08:05 AM [place] [facility] ELECTROLYTES Sp ecimen Type: PLASMA Comment: [place] [id number] on Dec 10, 2021@08:31 Tests performed on Cloakware (405) SN:[id number] Ordering Provid er: ISATU TODD Report Released Date/Time: Dec 10, 2021 07:22 AM Reporting Lab: [place] [facility] [address] [facility] [facility] [address] Performing Lab: [place] [facility] [address] [facility] [facility] [address] SODIUM 139 135-145 POTASSIUM 3.7 3.5-5.0 CHLORIDE 107 100-110 CARBON DIOXIDE 24 20-30 ANION GAP 8 4-16 Dec 10, 2021 08:05 [place] CREATININE WITH eGFR Specime n Type: PLASMA AM [facility] PANEL Comment: [place] [id number] on Dec 10, 2021@08:31 Tests performed on Pham [employer] (405) SN:[id number] Ordering Provid er: ISATU TODD Report Released Date/Time: Dec 10, 2021 07:22 AM Reporting Lab: [place] [facility] [address] [facility] [address] Performing Lab: [place] [facility] [address] [facility] [address] CREATININE 0.78 0.5-1.5 eGFR(CKD-EPI 2020) >90.0 >60 Dec 10, 2021 08:05 AM [place] [facility] CBC PROFILE Sp ecimen Type: BLOOD No comment enter ed. Ordering Provid er: ISATU TODD Report Released Date/Time: Dec 10, 2021 07:22 AM Reporting Lab: [place] [facility] [address] [facility] [address] Performing Lab: [place] [facility] [address] [facility] [address] WBC 7.0 4.5-11.0 RBC 4.54 4.23-5.66 HGB [...] 0-0 Dec 10, 2021 08:05 AM [place] [facility] CALCIUM Sp ecimen Type: PLASMA Comment: [place] [id number] on Dec 10, 2021@08:31 Tests performed on Cloakware (405) SN:[id number] Ordering Provid er: ISATU TODD Report Released Date/Time: Dec 10, 2021 07:22 AM Reporting Lab: [facility] [address] [facility] [address] Performing Lab: [facility] [address] [facility] [address] CALCIUM 8.3 L 8.5-10.5 Dec 09, 2021 06:46 AM [facility] MAGNESIUM Sp ecimen Type: PLASMA Comment: Tests performed on Cloak[employer] (405) SN:[id number] Ordering Provid er: ISATU TODD Report Released Date/Time: Dec 08, 2021 10:23 AM Reporting Lab: [facility] [address] [facility] [address] Performing Lab: [facility] [address] [facility] [address] MAGNESIUM 1.6 1.6-2.6 Dec 09, 2021 [place] P4 GLU,BUN,CREAT,LYTES,CA Speci men Type: PLASMA 06:46 AM [facility] Comment: Tests performed on Cloak[employer] (405) SN:[id number] Ordering Provid er: ISATU TODD Report Released Date/Time: Dec 08, 2021 05:00 PM Reporting Lab: [facility] [address] [facility] [facility] [address] Performing Lab: [facility] [address] [facility] [facility] [address] UREA NITROGEN 6 L 7-25 SODIUM 134 [...] Lab: [facility] [address] [facility] [facility] [address] Performing Lab: [facility] [address] [facility] [facility] [address] WBC 7.1 4.5-11.0 RBC 4.40 4.23-5.66 HGB [...] 0-0 Dec 08, 2021 06:39 AM [place] [facility] MAGNESIUM Sp ecimen Type: PLASMA Comment: Testin g Performed on Cloakware (405) SN:[id number] Ordering Provid er: ISAUT TODD Report Released Date/Time: Dec 07, 2021 10:32 AM Reporting Lab: [place] [facility] [address] [facility] [address] Performing Lab: [place] [facility] [address] [facility] [address] MAGNESIUM 1.5 L 1.6-2.6 Dec 08, 2021 [place] P4 GLU,BUN,CREAT,LYTES,CA Speci men Type: PLASMA 06:39 AM [facility] Comment: Testin g Performed on Cloakware (405) SN:[id number] Ordering Provid er: ISATU TODD Report Released Date/Time: Dec 07, 2021 10:32 AM Reporting Lab: [place] [facility] [address] [facility] [address] Performing Lab: [place] [facility] [address] [facility] [address] UREA NITROGEN 6 L 7-25 SODIUM 136 135-145 POTASSIUM 3.3 L 3.5-5.0 CHLORIDE 104 100-110 CARBON DIOXIDE 22 20-30 ANION GAP 10 4-16 GLUCOSE 133 H 65-100 CREATININE 0.76 0.5-1.5 CALCIUM 8.4 L 8.5-10.5 eGFR(CKD-EPI 2020) >90.0 >60 Dec 08, 2021 06:39 AM [place] [facility] CBC PROFILE Sp ecimen Type: BLOOD No comment enter ed. Ordering Provid er: ISATU TODD Report Released Date/Time: Dec 07, 2021 10:32 AM Reporting Lab: [place] [facility] [address] [facility] [address] Performing Lab: [place] [facility] [address] [facility] [address] WBC 8.4 4.5-11.0 RBC 4.75 4.23-5.66 HGB [...] ABSOLUTE NRBC 0.00 0-0 Dec 07, 2021 [facility] P4 GLU,BUN,CREAT,LYTES,CA Speci men Type: PLASMA 06:42 AM [facility] Comment: Tests performed on Cloakware (405) SN:[id number] Ordering Provid er: PORFIRIO WALTERS Report Released Date/Time: Dec 06, 2021 06:57 PM Reporting Lab: [facility] [address] [facility] [address] Performing Lab: [facility] [address] [facility] [facility] [address] UREA NITROGEN 9 7-25 SODIUM 135 135-145 POTASSIUM 3.5 3.5-5.0 CHLORIDE 103 100-110 CARBON DIOXIDE 22 20-30 ANION GAP 10 4-16 GLUCOSE 92 65-100 CREATININE 0.73 0.5-1.5 CALCIUM 8.0 L 8.5-10.5 eGFR(CKD-EPI 2020) >90.0 >60 Dec 07, 2021 06:42 [facility] LIVER PROFILE Specimen Typ e: PLASMA AM [facility] Comment: Tests performed on Cloakware 405 SN:[id number] Ordering Provid er: PORFIRIO WALTERS Report Released Date/Time: Dec 06, 2021 06:57 PM Reporting Lab: [facility] [address] [facility] [facility] [address] Performing Lab: [facility] [address] [facility] [facility] [address] PROTEIN, TOTAL 5.7 L 6.0-8.5 ALBUMIN 2.4 L 3.2-5.0 BILIRUBIN, TOTAL 0.4 0.2-1.2 ALKALINE PHOSPHATASE 109 40-150 ALT(SGPT) 10 7-52 AST(SGOT) 15 5-34 FIB-4 SCORE 1.92 <2.67 Dec 07, 2021 06:42 AM [facility] CBC PROFILE Specimen Type: BLOOD [facility] No comment enter ed. Ordering Provid er: PORFIRIO WALTERS Report Released Date/Time: Dec 06, 2021 06:57 PM Reporting Lab: [facility] [address] [facility] [facility] [address] Performing Lab: [facility] [address] [facility] [address] WBC 5.7 4.5-11.0 RBC 4.15 L 4.23-5.66 [...] [facility] %) AUTOMATED Comment: Tests performed on Cloak[employer] (405) SN:[id number] Ordering Provid er: ISATU TODD Report Released Date/Time: Dec 07, 2021 10:28 AM Reporting Lab: [place] [facility] [address] [facility] [address] Performing Lab: [place] [facility] [address] [facility] [address] RETICULOCYTES (%) AUTOMATED 1.23 0. 6-2.0 RETICULOCYTES (ABS) AUTOMATED 0.052 0.030-0.090 Dec 06, 2021 09:45 [place] MRSA SURVL NARES Specimen Ty pe: NARES PM [facility] DNA No comment enter ed. Ordering Provid er: ALVARO VARGHESE Report Released Date/Time: Dec 07, 2021 02:20 AM Reporting Lab: [place] [facility] [address] [facility] [address] Performing Lab: [place] [facility] [address] [facility] [address] MRSA SURVL NARES DNA NEGATIVE NEGATIVE Dec 06, 2021 06:00 [place] URINALYSIS W/REFLEX TO Speci men Type: URINE PM [facility] CULTURE No comment enter ed. Ordering Provid er: JELANI SÁNCHEZ Report Released Date/Time: Dec 06, 2021 11:57 AM Reporting Lab: [place] [facility] [address] [facility] [address] Performing Lab: [place] [facility] [address] [facility] [address] URINE COLOR Arlin YELLOW SPECIFIC GRAVITY 1.029 [...] NEG NEG WBC SCREEN NEG NEG Tom PATINO SARS-COV-2 Specimen Type: NASOPHARYNX 21, [place]IANT Comment: https://www.cdc.gov/coronavirus/2019-ncov/cases-updates/variant- surveillance/variant-info.html The [employer]obee[employer] SARS CoV 2 YuMe Research Assay-GX is a next-generation sequencing (NGS) assa 2021 [facility] SEQUENCING y that determine s the complete genome sequence of the SARS-CoV-2 virus. The assay contains variant-tolerant primers to broaden and improve the coverage for variant detection and increase the sensitivity 12:00 [facility] PNL() of the panel to enable detection from lower viral titer samples. The assay is run on the [employer] Sequencer, which performs automated library preparation, sequencing, analysis, and reporting. PM The sequence an alysis includes determination of viral phylogenetic lineage by comparison to the reference strain Wuhan-Hu-1, GenBank: [id number]. Sequence determination may not be possible owing [...] and its performance characteristics determined by the [facility], which is certified under the Clinical Laboratory Improveme nt Amendments (C MARCO) as qualified to perform high complexity clinical laboratory testing. This test is validated for clinical use at [facility] and should not be regarded as investigational or for research. The FDA does not require this test to go through premarket FDA review, and therefore it has not been cleared or approved by the FDA. This report was reviewed and approved by the on-service pathologist. Ordering Provid er: JELANI SÁNCHEZ Report Released Date/Time: Dec 06, 2021 01:13 PM Reporting Lab: [facility] [address] [facility] [facility] [address] Performing Lab: [facility] [address] [facility] [address] SARS-CoV-2 CLADE() 22C (OMICRON) SARS-CoV-2 LINEAGE() BA.2.12.1 Dec 06, 2021 12:00 [facility] AG SCREEN Specimen Type: NASAL CAVITY PM [facility] PANEL BINAX(405) Comment: Testi ng Performed By: Mike Briscoe Ordering Provid er: JELANI SÁNCHEZ Report Released Date/Time: Dec 08, 2021 08:23 AM Reporting Lab: [place] [facility] [address] [place] [facility] [place] [address] Performing Lab: [facility] [address] [facility] [facility] [address] COVID-19 AG SCRN(j BINAX) POSITIVE HH NE G Dec 06, 2021 12:00 PM [facility] TROPONIN II Sp ecimen Type: PLASMA Comment: Tests performed on Pham Manager Client Support (405) SN:[id number] Ordering Provid er: JELANI SÁNCHEZ Report Released Date/Time: Dec 06, 2021 11:57 AM Reporting Lab: [place] [facility] [address] [place] [facility] [place] [address] Performing Lab: [facility] [address] [place] [facility] [place] [address] TROPONIN II 0.03 0.00-0.29 Dec 06, 2021 12:00 PM [facility] LIVER PROFILE Sp ecimen Type: PLASMA Comment: Testin g Performed on Pham Manager Client Support (405) SN:[id number] Ordering Provid er: JELANI SÁNCHEZ Report Released Date/Time: Dec 06, 2021 11:57 AM Reporting Lab: [place] [facility] [address] [place] [facility] [place] [address] Performing [facility]: [facility] [address] [place] [facility] [place] [address] PROTEIN, TOTAL 6.6 6.0-8.5 ALBUMIN 2.8 L 3.2-5.0 BILIRUBIN, TOTAL 0.6 0.2-1.2 ALKALINE PHOSPHATASE 134 40-150 ALT(SGPT) 13 7-52 AST(SGOT) 18 5-34 FIB-4 SCORE 1.94 <2.67 Dec 06, 2021 [place] P4 GLU,BUN,CREAT,LYTES,CA Speci men Type: PLASMA 12:00 PM [facility] Comment: Testin g Performed on Pham Manager Client Support (405) SN:[id number] Ordering Provid er: JELANI SÁNCHEZ Report Released Date/Time: Dec 06, 2021 11:57 AM Reporting Lab: [facility] [address] [facility] [address] Performing Lab: [facility] [address] [facility] [address] UREA NITROGEN 13 7-25 SODIUM 138 135-145 POTASSIUM 3.8 3.5-5.0 CHLORIDE 103 100-110 CARBON DIOXIDE 23 20-30 ANION GAP 12 4-16 GLUCOSE 105 H 65-100 CREATININE 0.90 0.5-1.5 CALCIUM 8.7 8.5-10.5 eGFR(CKD-EPI 2020) >90.0 >60 Dec 06, 2021 12:00 PM [facility] BNP(P) Sp ecimen Type: PLASMA Comment: Tests performed on Pham Manager Client Support (405) SN:[id number] Ordering Provid er: JELANI SÁNCHEZ Report Released Date/Time: Dec 06, 2021 11:57 AM Reporting Lab: [facility] [address] [facility] [address] Performing Lab: [facility] [address] [facility] [address] BNP(P) 224.8 H 10-100 Dec 06, 2021 [facility] COVID-19+FLU/RSV DIAGNOSTIC Spe cimen Type: NASOPHARYNX 12:00 PM [facility] PANEL(405) Comment: Tests performed on [employer] Genexpert (405) Critical results called to and read back by: ALESHIA WILKINSON RN 12/06/21 @ 1312 Ordering Provid er: JELANI SÁNCHEZ Report Released Date/Time: Dec 06, 2021 11:57 AM Reporting Lab: [facility] [address] [facility] [facility] [address] Performing Lab: [place] [facility] [address] [facility] [facility] [address] FLU A(PCR) NEGATIVE NEGATIVE FLU B(PCR) NEGATIVE NEGATIVE RSV(PCR) NEGATIVE NEGATIVE COVID-19(LNS-flo-MPUFMARHE) DETECTED HH NO T DETECTED Dec 06, 2021 12:00 PM [facility] CBC PROFILE Sp ecimen Type: BLOOD No comment enter ed. Ordering Provid er: JELANI SÁNCHEZ Report Released Date/Time: Dec 06, 2021 11:57 AM Reporting [facility] [address] [facility] [facility] [address] Performing [facility] [address] [facility] [facility] [address] WBC 7.2 4.5-11.0 RBC 4.86 4.23-5.66 HGB [...] Date/Time Smoking Status/Tobacco Use Comment Facil ity Apr 01, 2020 01:16 PM QUIT TOBACCO [...] 2015 08:48 AM CURRENT [facility]MO[facility] Radiology Reports: +/- 30 days of the [...] CONTRAST: [place]EN [place] LUCAS MEEK N [id number] -1950 M [facility] Exm Date: DEC 13, 2021@12:57 Req Phys: ISATU TODD Loc: OP Unknown/0 12-15-2021@13:20 Img Loc: MRI IMAGING (OOS) Service: [facility] MEDICINE (Case [id number] COMPLETE) MRI ABDOMEN W/WO CONTRAST (M RI Detailed) CPT:29298 Reason for Study: further characterization of a [...] new lyphadenopathy REQUESTING MD: Isatu Todd PAGER: [phone] PHONE: [phone] Weight: 232.2 lb [105.32 kg] (12/12/2021 05:00) [...] patient will need to arrange for a construction driver to take him/her home after the [...] 15, 2021 Date Verified: DEC 15, 2021 Ceramics Technician E-Sig:/ES/MARYELLEN LONG Report: MRI ABDOMEN W/WO CONTRAST [...] MALIGNANCY Primary Interpreting Staff: Staff AMELIA THOMAS (Ceramics Technician) / Dec 10, 2021 09:[address] ABDOMEN & PELVIS: RADIOLOGY,OUTSIDE [facility] [place] LUCAS MEEK N [id number] -1950 M [facility] Exm Date: DEC 10, 2021@09:30 Req Phys: ISATU TODD Loc: 1S MED/12-10@10:57 Img Loc: CT SCAN (OOS) Service: [facility] MEDICINE (Case [id number] COMPLETE) CT ABD & PELVIS WITHOUT CONT RAST (CT Detailed) CPT:44073 Reason for Study: 71 yo male with [...] INDEX - NO HEIGHTS FOUND Pager number: [phone] STAT orders MUST be call ed to RADIOLOGY [phone] to speak to the appropriate test technician. Report Status: Verified Date Reported: DEC 10, 2021 Date Verified: DEC 10, 2021 Ceramics Technician E-Sig: Report: EXAM: CT abdomen and pelvis [...] ph nodes. READING PHYSICIAN: Ramone Munoz D.O. [phone] 12/10/2021 10:55 EDT [facility] Networks[facility] Program [phone] (For Medical Practitioner Use Only ) [address] [place] [address], [place] [address], [address] [place] [address] Attention Patients / Veterans: If you have ques tions or concerns about these test results, please contact your [facility] provider or primary care team. Primary Diagnostic Code: SIGNIFICANT ABNORMALIT Y, ATTN NEEDED Primary Interpreting Staff: RADIOLOGY,OUTSIDE SERVICE, Staff Physician / Dec 09, 2021 07:34 AM BASW (MODIFIED): [facility] KALYANILUCAS N [id number] -1950 [facility] Exm Date: DEC 09, 2021@07:34 Req Phys: ISATU TODD Loc: MED/12-09@11:26 Img Loc: XRAY (OOS) Service: [facility] [place] (Case [id number] COMPLETE) BASW (MODIFIED) (RAD Detaile d) CPT:57647 Contrast Media : Barium Reason for Study: dysphagia ?esophageal spasm Clinical History: Report Status: Verified Date Reported: DEC 09, 2021 Date Verified: DEC 09, 2021 Ceramics Technician E-Sig:/ES/JESSIE CHENEY Report: DELISA (MODIFIED) , 12/09/2021 [...] REQUIRED Primary Interpreting Staff: JESSIE CHENEY, RADIOLOGIST (Ceramics Technician) /TLC Dec 06, 2021 12:[address] CHEST (INCLUDES ADRENALS): [facility] LUCAS MEEK N [id number] -1950 [facility] Exm Date: DEC 06, 2021@12:59 Req Phys: JELANI SÁNCHEZ Pat Loc: [facility] ED DAYS M 1RD (Req'g Loc) Img Loc: CT SCAN (OOS) Service: Unknown (Case [id number] COMPLETE) CT THORAX W/O CONT (CT Detai led) CPT:99260 Reason for Study: Opacification right chest Clinical History: No contrast allergy BUN: 13 (12/06/21 12:00) CREATI: 0.90 (12/06/21 12:00) eGFR 05/16/21 09:43 52 L Weight: 232.6 lb [105.51 kg] (12/06/2021 11:40) BODY MASS INDEX - NO HEIGHTS FOUND Pager number: [phone] STAT orders MUST be called t o RADIOLOGY [phone] to speak to the appropriate test technician. 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 E-Sig:/ES/JESSIE CHENEY Report: CT THORAX W/O CONT [...] REQUIRED Primary Interpreting Staff: JESSIE CHENEY, RADIOLOGIST (Ceramics Technician) Primary Interpreting Resident: PRINCE CHAMPION, Resident /ABBI Dec 06, 2021 11:58 AM CHEST SINGLE VIEW: JESSIE CHENEY LUCAS MEEK N [id number] -1950 M [facility] Exm Date: DEC 06, 2021@11:58 Req Phys: JELANI SÁNCHEZ Pat Loc: [facility] ED DAYS M 1RD (Req'g Loc) Img Loc: XRAY (OOS) Service: Unknown (Case [id number] COMPLETE) CHEST SINGLE VIEW (RAD Detai led) CPT:81524 Proc Modifiers : PORTABLE EXAM Reason for Study: SOB, home covid test positive Clinical History: Report Status: Verified Date Reported: DEC 06, 2021 Date Verified: DEC 06, 2021 Ceramics Technician E-Sig:/ES/JESSIE CHENEY Report: Exam type: Chest x-ray [...] REQUIRED Primary Interpreting Staff: JESSIE CHENEY RADIOLOGIST (Ceramics Technician) /TLC Pathology Reports: +/- 30 days of [...] MILLER LOCAL TITLE: LR SURGICAL PATHOLOGY REPORT [facility] STANDARD TITLE: PATHOLOGY REPORT DATE OF NOTE: JAN 03, 2022@10:28:01 ENTRY DATE: JAN 03, 2022@10:28:01 AUTHOR: NIURKA MILLER EXP COSIGNER: URGENCY: STATUS: COMPLETED $APHDR Reporting Lab: [facility] [CLIA# [id number]] [address] [place] [address] - - - - - - [...] automatically d ocumented from SURGERY package case #[id number] Field (#32) PRINCIPAL PRE-OP DIAGNOSIS, (#.72) OTHER [...] automatically d ocumented from SURGERY package case #[id number] Field (#34) PRINCIPAL POST-OP DIAG, (#.74) OTHER [...] Label: Lucas Meek Paperwork: Lucas Meek Cassette: [id number];..;KALYANI;.;537;[id number] Specimen is labeled: ES bx Received in formalin are several pieces of pale boyd and brown tissue, 1.2 x 0.7 cm in aggregate. Submitted entirely in 1 cassette [id number];..;KALYANI;.;408;[id number] SAW 12/15/2021 Microscopic exam: *+* MODIFIED REPORT *+* (Last modified: JAN 03, 2022@09:30:20 typed by NIURKA WADDELL) DIAGNOSIS: A. 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 Kendell long. TIARA Coombs was notified on 12/21/21. Modified on 01/03/22 to include report from [facility] stating that tumor is NEGATIVE for her2/ matheus amplification. The attending pathologist who signature mansoor ears on this report has reviewed all diagnostic slides and has edited t he gross and/or microscopic portion of this report in rendering the final pathologic diagnosis. [address] [address] CPT: 78364 /emely/ NIUKRA Yeung MD Signed Jan 03, 2022@10:28 Performing Laboratory: Surgical Pathology Report Performed By: [facility] [CLIA# [id number]] [address] [place] [address] $FTR - - - - - [...] - - LUCAS MEEK STANDARD FORM 515 ID:[id number] SEX:M :1950 AGE: 71 LOC: SDM END PCP: Isatu Todd /charmaine Yeung MD Signed: 01/03/2022 10:28 Dec 21, 2021 11:46 AM LR SURGICAL PATHOLOGY REPORT: STEFANY MILLER LOCAL TITLE: LR SURGICAL PATHOLOGY REPORT [facility] STANDARD TITLE: PATHOLOGY REPORT DATE OF NOTE: DEC 21, 2021@11:46:59 ENTRY DATE: DEC 21, 2021@11:46:59 AUTHOR: NIURKA MILLER EXP COSIGNER: URGENCY: STATUS: COMPLETED $APHDR Reporting Lab: [facility] [CLIA# [id number]] [address] [place] [address] - - - - - - [...] automatically d ocumented from SURGERY package case #[id number] Field (#32) PRINCIPAL PRE-OP DIAGNOSIS, (#.72) OTHER [...] automatically d ocumented from SURGERY package case #[id number] Field (#34) PRINCIPAL POST-OP DIAG, (#.74) OTHER [...] Label: Lucas Meek Paperwork: Lucas Meek Cassette: [id number];..;KALYANI;.;405;[id number] Specimen is labeled: ES bx Received in formalin are several pieces of pale boyd and brown tissue, 1.2 x 0.7 cm in aggregate. Submitted entirely in 1 cassette [id number];..;KALYANI;.;405;[id number] SAW 12/15/2021 Microscopic exam: DIAGNOSIS: A. 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 Kendell long. TIARA Coombs was notified on 12/21/21. The attending pathologist who signature mansoor ears on this report has reviewed all diagnostic slides and has edited t he gross and/or microscopic portion of this report in rendering the final pathologic diagnosis. [address] [address] CPT: 24380 /emely/ NIURKA Yeung MD Signed Dec 21, 2021@11:46 Performing Laboratory: Surgical Pathology Report Performed By: [facility] [CLIA# [id number]] [address] [place] [address] $FTR - - - - - [...] - - LUCAS MEEK STANDARD FORM 515 ID:[id number] SEX:M :1950 AGE: 71 LOC: SDM END PCP: Isatu Todd /emely/ NIURKA Yeung MD Signed: 12/21/2021 11:46 Dec 06, 2021 03:30 PM LR MICROBIOLOGY REPORT: [facility] Reporting Lab: [facility] [CLIA# [id number]] [address] [place] [address] Accession [UID]: [id number] [[id number]] Receiv ed: Dec 06, 2021@16:14 Collection sample: BLOOD CUL T BOTTLE(NIRMAL/AERO)Collection date: Dec 06, 2021 15:30 Site/Specimen: BLOOD Provider: JELANI SÁNCHEZ Comment on specimen: LAC Test(s) ordered: BLOOD CULTURE ANAEROBI C....... completed: Dec 12, 2021 06:18 * BACTERIOLOGY FINAL REPORT => Dec 12, 2021 06:1 8 TECH CODE: [id number] Bacteriology Remark(s): NO GROWTH IN 5 DAYS =--=--=--=--=--=--=--=--=--=--=--=--=--= --=--=--=--=--=--=--=--=--=--=--=--=-- Performing Laboratory: Bacteriology Report Performed By: [facility] [CLIA# [id number]] [address] [place] [address] Dec 06, 2021 03:30 PM LR MICROBIOLOGY REPORT: [facility] Reporting Lab: [facility] [CLIA# [id number]] [address] [place] [address] Accession [UID]: [id number] [[id number]] Receiv ed: Dec 06, 2021@16:14 Collection sample: BLOOD CUL T BOTTLE(NIRMAL/AERO)Collection date: Dec 06, 2021 15:30 Site/Specimen: BLOOD Provider: JELANI SÁNCHEZ Comment on specimen: LAC Test(s) ordered: BLOOD CULTURE AEROBIC. ........ completed: Dec 12, 2021 06:17 * BACTERIOLOGY FINAL REPORT => Dec 12, 2021 06:1 7 TECH CODE: [id number] Bacteriology Remark(s): NO GROWTH IN 5 DAYS =--=--=--=--=--=--=--=--=--=--=--=--=--= --=--=--=--=--=--=--=--=--=--=--=--=-- Performing Laboratory: Bacteriology Report Performed By: [facility] [CLIA# [id number]] [address] [place] [address] Encounter Notes: All associated encounter notes This section contains the clinical notes associated to the Encounter. Date/Time Encounter Note(s) Provider Source Dec 22, 2021 08:46 AM PRIMARY CARE TELEPHONE ENCOUNTER NOTE: KATIE TODD [facility] LOCAL TITLE: Telephone Note-Primary Care STANDARD TITLE: PRIMARY CARE TELEPHONE ENCOUNTER NOTE DATE OF NOTE: DEC 22, 2021@08:46 ENTRY DATE: DEC 22, 2021@08:46:39 AUTHOR: KATIE WALLIS EXP COSIGNER: URGENCY: STATUS: COMPLETED Telephone Note-Primary Care Has ADDENDA reports has spent pa st 8 days in hospital was [facility]- looking for follow up with pcp negotiated Work Phone: NONE Cell phone: /emely/ KATIE PABLO Signed: 12/22/2021 08:49 Receipt Acknowledged By: 12/22/2021 18:39 /emely/ KAITLIN TINOCO MD Staff Physician * AWAITING SIGNATURE * ZAK MORRELL V 12/22/2021 ADDENDUM STATUS: COMPLETED I returned call and offered sooner appt in . No answer when I called x3. Also tried emergency contact info. /es/ KAITLIN TINOCO MD Staff Physician Signed: 12/22/2021 18:39
--- OUTSIDE RECORDS SUMMARY | 2022-01-19 08:11 | XMS_ITS | Encounter Summary ---
:1950 Author Organization [facility] Address [address] [place] [id number] Support Name Relationship Address Phone YUSRA MEEK Unavailable [address] [place] [facility] [place] [address] YUSRA MEEK Unavailable [address] - [place] [facility] [place] [address] CLAY MOSLEY Unavailable Unavailable SJ SANTACRUZ Unavailable [...] MEDICARE MEDICARE PART Jun 18, PART B [id number] DO KALYANI PATIENT (WNR) (M) B 2016 13A 1 UGLAS MEDICARE MEDICARE PART Jun 18, PART A [id number] DO KALYANI PATIENT (WNR) (M) A 2016 13A 1 U[place]AS MEDICARE MEDICARE PART Jun 18, PART A [id number] KALYANIDO PATIENT (WNR) (M) A 2017 VH81 2 UGLAS MEDICARE MEDICARE PART Jun 18, PART B [id number] DO KALYANI PATIENT (WNR) (M) B 2017 VH81 2 LAS UNITED MEDICARE MCR(Jun [id number] Luz MEEK PATIENT HEALTHCARE ADVANTAGE NR) 2021 37 0 [facility] (WNR) Selected Encounter This section includes the information on record at [place] for the Encounter. Date/Time Encounter Type Encounter Reason Provider Source Description Dec 21, 2021 Outpatient TELEPHONE/MEDICINE ICD-10-CM C15.5 YAMEL HILL 01:57 PM Encounter Malignant neoplasm of lower third of esophagus with Provider Comments: Malignant neoplasm of lower third of esophagus IHE Encounter Template Text not used by [place] Assessments - Encounter Diagnoses This section includes the primary and secondary diagnoses documented for the Encounter. Date/Time Primary/Secondary Diagnosis Name Provider Source Diagnosis Dec 21, 2021 01:57 PRIMARY Malignant YAMEL HILL TAAR ER PM neoplasm of lower [place] [facility] third of esophagus Plan of Treatment: Future Appointments (+ 6 months) and Future Tests (+/- 45 days) The Plan of Treatment section includes future care activities for the patient from all [place] treatmentfacilities. This section includes future appointments and future orders which are active, pending orscheduled.Future Appointments This section includes appointments that were scheduled to occur 6 months from the date of the Encounter, up to a maximum of 20 appointments. The data comes from all [place] treatment facilities. Appointment Date/Time Appointment Type Appointment Facili ty Name Jan 06, 2022 02:00 PM [place] [facility] Jan 10, 2022 11:30 AM [facility] Jan 24, 2022 08:00 AM [place] [facility] Feb 21, 2022 10:00 AM [place] [facility] Mar 21, 2022 10:30 AM [facility] Active, Pending, and Scheduled [...] the Encounter. The data comes from all [place] treatment facilities. Test Date/Time Test Type Test Details Facility Name November 15, 2021 10:37 AM Consult Order [facility] Cons [facility] Service's Choice Dec 06, 2021 12:52 PM [place] In[place] Order [facility] Dec 06, 2021 03:24 PM Pharmacy [place] [facility] Dec 06, 2021 03:40 PM [place]acy [place] [facility] Dec 15, 2021 08:41 AM Consult Order [facility]CH PATHOLOG[place] Cons [facility] Chief Optometry Service's Choice Jan 15, 2022 10:08 PM Consult Order [facility]ALLIATIVE CARE Cons [facility] Service's Choice Lab Results: +/- 30 days of [...] GLU,BUN,CREAT,LYTES,CA Speci men Type: PLASMA 06:43 AM [facility] Comment: Tests performed on Asktourism (405) SN:[id number] Ordering Provid er: ISATU TODD Report Released Date/Time: Dec 11, 2021 07:42 AM Reporting Lab: [place] [facility] [address] [facility] [address] Performing Lab: [place] [facility] [address] [facility] [address] UREA NITROGEN 9 7-25 SODIUM 137 135-145 POTASSIUM 3.8 3.5-5.0 CHLORIDE 105 100-110 CARBON DIOXIDE 26 20-30 ANION GAP 6 4-16 GLUCOSE 102 H 65-100 CREATININE 0.64 0.5-1.5 CALCIUM 8.1 L 8.5-10.5 eGFR(CKD-EPI 2020) >90.0 >60 Dec 15, 2021 06:43 [facility] CBC PROFILE Sp ecimen Type: BLOOD No comment enter ed. Ordering Provid er: ISATU TODD Report Released Date/Time: Dec 10, 2021 07:22 AM Reporting Lab: [place] [facility] [address] [facility] [address] Performing Lab: [place] [facility] [address] [facility] [address] WBC 5.7 4.5-11.0 RBC 4.22 L 4.23-5.66 [...] ABSOLUTE NRBC 0.00 0-0 Dec 14, 2021 [facility] CYTOGENETIC Specimen Type: ESOPHAGUS 02:59 PM [facility] FISH([facility]) Comment: ~For T est: CYTOGENETIC FISH([facility]) ~FISH HER 2 NUE, FFPE See full report in [employer] Image display viewer/tab#LAB-Reference Ordering Provid er: NIURKA MILLER Report Released Date/Time: Dec 21, 2021 12:11 PM Reporting Lab: [facility] [address] [facility] [address] Performing Lab: [facility] CYTOGENETIC FISH([facility]) comment Dec 14, 2021 [facility] P4 GLU,BUN,CREAT,LYTES,CA Speci men Type: PLASMA 06:27 AM [facility] Comment: Tests performed on Asktourism (405) SN:[id number] Ordering Provid er: ISATU TODD Report Released Date/Time: Dec 11, 2021 07:42 AM Reporting Lab: [facility] [address] [facility] [address] Performing Lab: [facility] [address] [facility] [address] UREA NITROGEN 10 7-25 SODIUM 137 135-145 POTASSIUM 4.0 3.5-5.0 CHLORIDE 104 100-110 CARBON DIOXIDE 25 20-30 ANION GAP 8 4-16 GLUCOSE 99 65-100 CREATININE 0.67 0.5-1.5 CALCIUM 8.2 L 8.5-10.5 eGFR(CKD-EPI 2020) >90.0 >60 Dec 14, 2021 06:27 AM [facility] CBC PROFILE Sp ecimen Type: BLOOD No comment enter ed. Ordering Provid er: ISATU TODD Report Released Date/Time: Dec 10, 2021 07:22 AM Reporting Lab: [facility] [address] [facility] [address] Performing Lab: [facility] [address] [facility] [address] WBC 6.0 4.5-11.0 RBC 4.29 4.23-5.66 HGB [...] ABSOLUTE NRBC 0.00 0-0 Dec 13, 2021 [facility] P4 GLU,BUN,CREAT,LYTES,CA Speci men Type: PLASMA 06:34 AM [facility] Comment: Tests performed on [employer] Setup Worker (405) SN:[id number] Ordering Provid er: ISATU TODD Report Released Date/Time: Dec 11, 2021 07:42 AM Reporting Lab: [facility] [address] [facility] [address] Performing Lab: [facility] [address] [facility] [address] UREA NITROGEN 12 7-25 SODIUM 136 135-145 POTASSIUM 3.9 3.5-5.0 CHLORIDE 105 100-110 CARBON DIOXIDE 24 20-30 ANION GAP 7 4-16 GLUCOSE 102 H 65-100 CREATININE 0.66 0.5-1.5 CALCIUM 8.3 L 8.5-10.5 eGFR(CKD-EPI 2020) >90.0 >60 Dec 13, 2021 06:34 AM [facility] CBC PROFILE Sp ecimen Type: BLOOD No comment enter ed. Ordering Provid er: ISATU TODD Report Released Date/Time: Dec 10, 2021 07:22 AM Reporting Lab: [facility] [address] [facility] [address] Performing Lab: [facility] [address] [facility] [address] WBC 5.6 4.5-11.0 RBC 4.28 4.23-5.66 HGB [...] ABSOLUTE NRBC 0.00 0-0 Dec 12, 2021 [facility] P4 GLU,BUN,CREAT,LYTES,CA Speci men Type: PLASMA 06:21 AM [facility] Comment: Tests performed on Asktourism (405) SN:[id number] Ordering Provid er: ISATU TODD Report Released Date/Time: Dec 11, 2021 07:42 AM Reporting Lab: [facility] [address] [facility] [address] Performing Lab: [facility] [address] [facility] [address] UREA NITROGEN 11 7-25 SODIUM 139 135-145 POTASSIUM 4.1 3.5-5.0 CHLORIDE 107 100-110 CARBON DIOXIDE 24 20-30 ANION GAP 8 4-16 GLUCOSE 110 H 65-100 CREATININE 0.70 0.5-1.5 CALCIUM 8.3 L 8.5-10.5 eGFR(CKD-EPI 2020) >90.0 >60 Dec 12, 2021 06:21 AM [facility] CBC PROFILE Sp ecimen Type: BLOOD No comment enter ed. Ordering Provid er: ISATU TODD Report Released Date/Time: Dec 10, 2021 07:22 AM Reporting Lab: [facility] [address] [facility] [address] Performing Lab: [facility] [address] [facility] [address] WBC 5.5 4.5-11.0 RBC 4.37 4.23-5.66 HGB [...] Type: PLASMA Comment: Testin g Performed on Asktourism (405) SN:[id number] Ordering Provid er: ISATU TODD Report Released Date/Time: Dec 12, 2021 08:24 AM Reporting Lab: [facility] [address] [facility] [address] Performing Lab: [facility] [address] [facility] [address] MAGNESIUM 1.8 1.6-2.6 Dec 12, 2021 06:00 AM [facility] PHOSPHORUS Sp ecimen Type: PLASMA Comment: Testin g Performed on Asktourism (405) SN:[id number] Ordering Provid er: ISATU TODD Report Released Date/Time: Dec 12, 2021 08:24 AM Reporting Lab: [place] [facility] [address] [facility] [address] Performing Lab: [place] [facility] [address] [facility] [address] PHOSPHORUS 3.1 2.5-5.0 Dec 11, 2021 06:15 AM [place] [facility] ELECTROLYTES Sp ecimen Type: PLASMA Comment: Tests performed on Asktourism (405) SN:[id number] Ordering Provid er: ISATU TODD Report Released Date/Time: Dec 10, 2021 07:22 AM Reporting Lab: [place] [facility] [address] [facility] [address] Performing Lab: [place] [facility] [address] [facility] [address] SODIUM 137 135-145 POTASSIUM 4.3 3.5-5.0 CHLORIDE 108 100-110 CARBON DIOXIDE 20 20-30 ANION GAP 9 4-16 Dec 11, 2021 06:15 AM [facility] CBC PROFILE Sp ecimen Type: BLOOD Comment: Result s checked Ordering Provid er: ISATU TODD Report Released Date/Time: Dec 10, 2021 07:22 AM Reporting Lab: [facility] [address] [facility] [address] Performing Lab: [facility] [address] [facility] [address] WBC 5.8 4.5-11.0 RBC 4.37 4.23-5.66 HGB [...] 0.00 0-0 Dec 11, 2021 06:00 AM [facility] PHOSPHORUS Sp ecimen Type: PLASMA Comment: Tests performed on Asktourism 405 SN:[id number] Results checked Ordering Provid er: ISATU TODD Report Released Date/Time: Dec 11, 2021 07:44 AM Reporting Lab: [facility] [address] [place] [address] Performing Lab: [place] [facility] [address] [place] [facility] [place] [address] PHOSPHORUS 3.0 2.5-5.0 Dec 10, 2021 08:05 AM [place] [facility] MAGNESIUM Sp ecimen Type: PLASMA Comment: [place] [id number] on Dec 10, 2021@08:31 Tests performed on Asktourism (405) SN:[id number] Ordering Provid er: ISATU TODD Report Released Date/Time: Dec 10, 2021 07:22 AM Reporting Lab: [place] [facility] [address] [place] [facility] [place] [address] Performing Lab: [place] [facility] [address] [facility] [address] MAGNESIUM 1.7 1.6-2.6 Dec 10, 2021 08:05 AM [place] [facility] PHOSPHORUS Sp ecimen Type: PLASMA Comment: [place] [id number] on Dec 10, 2021@08:31 Tests performed on Asktourism (405) SN:[id number] Ordering Provid er: ISATU TODD Report Released Date/Time: Dec 10, 2021 07:22 AM Reporting Lab: [place] [facility] [address] [facility] [address] Performing Lab: [place] [facility] [address] [facility] [address] PHOSPHORUS 1.8 L 2.5-5.0 Dec 10, 2021 08:05 AM [place] UREA NITROGEN Specimen Type: PLASMA [facility] Comment: [place] [id number] on Dec 10, 2021@08:31 Tests performed on Asktourism (405) SN:[id number] Ordering Provid er: ISATU TODD Report Released Date/Time: Dec 10, 2021 07:22 AM Reporting Lab: [place] [facility] [address] [place] [facility] [place] [address] Performing Lab: [place] [facility] [address] [facility] [address] UREA NITROGEN 8 7-Dec 10, 2021 08:05 AM [place] [facility] GLUCOSE Sp ecimen Type: PLASMA Comment: [place] [id number] on Dec 10, 2021@08:31 Tests performed on Asktourism (405) SN:[id number] Ordering Provid er: ISATU TODD Report Released Date/Time: Dec 10, 2021 07:22 AM Reporting Lab: [place] [facility] [address] [facility] [address] Performing Lab: [place] [facility] [address] [place] [facility] [place] [address] GLUCOSE 144 H 65-100 Dec 10, 2021 08:05 AM [place] [facility] ELECTROLYTES Sp ecimen Type: PLASMA Comment: [place] [id number] on Dec 10, 2021@08:31 Tests performed on [employer]am [employer] (405) SN:[id number] Ordering Provid er: ISATU TODD Report Released Date/Time: Dec 10, 2021 07:22 AM Reporting Lab: [place] [facility] [address] [facility] [address] Performing Lab : [place] [facility] [address] [facility] [address] SODIUM 139 135-145 POTASSIUM 3.7 3.5-5.0 CHLORIDE 107 100-110 CARBON DIOXIDE 24 20-30 ANION GAP 8 4-16 Dec 10, 2021 08:05 [place] CREATININE WITH eGFR Specime n Type: PLASMA AM [facility] PANEL Comment: [place] [id number] on Dec 10, 2021@08:31 Tests performed on Pham [employer] (405) SN:[id number] Ordering Provid er: ISATU TODD Report Released Date/Time: Dec 10, 2021 07:22 AM Reporting Lab: [place] [facility] [address] [place] [facility] [place] [address] Performing Lab: [place] [facility] [address] [place] [facility] [place] [address] CREATININE 0.78 0.5-1.5 eGFR(CKD-EPI 2020) >90.0 >60 Dec 10, 2021 08:05 AM [place] [facility] CBC PROFILE Sp ecimen Type: BLOOD No comment enter ed. Ordering Provid er: ISATU TODD Report Released Date/Time: Dec 10, 2021 07:22 AM Reporting Lab: [place] [facility] [address] [facility] [address] Performing Lab: [place] [facility] [address] [facility] [address] WBC 7.0 4.5-11.0 RBC 4.54 4.23-5.66 HGB [...] 0.00 0-0 Dec 10, 2021 08:05 AM [facility] CALCIUM Sp ecimen Type: PLASMA Comment: [place] [id number] on Dec 10, 2021@08:31 Tests performed on Asktourism (405) SN:[id number] Ordering Provid er: ISATU TODD Report Released Date/Time: Dec 10, 2021 07:22 AM Reporting Lab: [place] [facility] [address] [facility] [address] Performing Lab: [facility] [address] [facility] [address] CALCIUM 8.3 L 8.5-10.5 Dec 09, 2021 06:46 AM [facility] MAGNESIUM Sp ecimen Type: PLASMA Comment: Tests performed on Asktourism (405) SN:[id number] Ordering Provid er: ISATU TODD Report Released Date/Time: Dec 08, 2021 10:23 AM Reporting Lab: [place] [facility] [address] [facility] Performing Lab: [place] [facility] [address] [facility] [address] MAGNESIUM 1.6 1.6-2.6 Dec 09, 2021 [place] P4 GLU,BUN,CREAT,LYTES,CA Speci men Type: PLASMA 06:46 AM [facility] Comment: Tests performed on Asktourism (405) SN:[id number] Ordering Provid er: ISATU TODD Report Released Date/Time: Dec 08, 2021 05:00 PM Reporting Lab: [place] [facility] [address] [facility] Performing Lab: [facility] [address] [facility] UREA NITROGEN 6 L 7-25 SODIUM 134 L 135-145 POTASSIUM 3.7 3.5-5.0 CHLORIDE 103 100-110 CARBON DIOXIDE 23 20-30 ANION GAP 8 4-16 GLUCOSE 112 H 65-100 CREATININE 0.70 0.5-1.5 CALCIUM 8.1 L 8.5-10.5 eGFR(CKD-EPI 2020) >90.0 >60 Dec 09, 2021 06:46 AM [facility] CBC PROFILE Sp ecimen Type: BLOOD No comment enter ed. Ordering Provid er: ISATU TODD Report Released Date/Time: Dec 08, 2021 05:00 PM Reporting Lab: [facility] [place] [facility] [address] [facility] Performing Lab: [place] [facility] [address] [facility] WBC 7.1 4.5-11.0 RBC 4.40 4.23-5.66 HGB [...] 0.00 0-0 Dec 08, 2021 06:39 AM [facility] MAGNESIUM Sp ecimen Type: PLASMA Comment: Testin g Performed on Asktourism (405) SN:[id number] Ordering Provid er: ISATU TODD Report Released Date/Time: Dec 07, 2021 10:32 AM Reporting Lab: [facility] [address] [facility] [address] Performing Lab: [facility] [address] [facility] [address] MAGNESIUM 1.5 L 1.6-2.6 Dec 08, 2021 [facility] P4 GLU,BUN,CREAT,LYTES,CA Speci men Type: PLASMA 06:39 AM [facility] Comment: Testin g Performed on Asktourism (405) SN:[id number] Ordering Provid er: ISATU TODD Report Released Date/Time: Dec 07, 2021 10:32 AM Reporting Lab: [facility] [address] [facility] [address] Performing Lab: [facility] [address] [facility] [address] UREA NITROGEN 6 L 7-25 SODIUM 136 135-145 POTASSIUM 3.3 L 3.5-5.0 CHLORIDE 104 100-110 CARBON DIOXIDE 22 20-30 ANION GAP 10 4-16 GLUCOSE 133 H 65-100 CREATININE 0.76 0.5-1.5 CALCIUM 8.4 L 8.5-10.5 eGFR(CKD-EPI 2020) >90.0 >60 Dec 08, 2021 06:39 AM [facility] CBC PROFILE Sp ecimen Type: BLOOD No comment enter ed. Ordering Provid er: ISATU TODD Report Released Date/Time: Dec 07, 2021 10:32 AM Reporting Lab: [facility] [address] [facility] [address] Performing Lab: [facility] [address] [facility] [address] WBC 8.4 4.5-11.0 RBC 4.75 4.23-5.66 HGB [...] ABSOLUTE NRBC 0.00 0-0 Dec 07, 2021 [place] P4 GLU,BUN,CREAT,LYTES,CA Speci men Type: PLASMA 06:42 AM [facility] Comment: Tests performed on Asktourism (211) SN:[id number] Ordering Provid er: PORFIRIO WALTERS Report Released Date/Time: Dec 06, 2021 06:57 PM Reporting Lab: [facility] [address] [facility] [address] Performing Lab: [facility] [address] [facility] [address] UREA NITROGEN 9 7-25 SODIUM 135 135-145 POTASSIUM 3.5 3.5-5.0 CHLORIDE 103 100-110 CARBON DIOXIDE 22 20-30 ANION GAP 10 4-16 GLUCOSE 92 65-100 CREATININE 0.73 0.5-1.5 CALCIUM 8.0 L 8.5-10.5 eGFR(CKD-EPI 2020) >90.0 >60 Dec 07, 2021 06:42 [place] LIVER PROFILE Specimen Typ e: PLASMA AM [facility] Comment: Tests performed on Asktourism (405) SN:[id number] Ordering Provid er: PORFIRIO WALTERS Report Released Date/Time: Dec 06, 2021 06:57 PM Reporting Lab: [facility] [address] [facility] [address] Performing Lab: [facility] [address] [facility] [address] PROTEIN, TOTAL 5.7 L 6.0-8.5 ALBUMIN 2.4 L 3.2-5.0 BILIRUBIN, TOTAL 0.4 0.2-1.2 ALKALINE PHOSPHATASE 109 40-150 ALT(SGPT) 10 7-52 AST(SGOT) 15 5-34 FIB-4 SCORE 1.92 <2.67 Dec 07, 2021 06:42 AM [facility] CBC PROFILE Specimen Type: BLOOD [facility] No comment enter ed. Ordering Provid er: PORFIRIO WALTERS Report Released Date/Time: Dec 06, 2021 06:57 PM Reporting Lab: [facility] [address] [facility] [address] Performing Lab: [facility] [address] [facility] [address] WBC 5.7 4.5-11.0 RBC 4.15 L 4.23-5.66 [...] [facility] %) AUTOMATED Comment: Tests performed on Asktourism (405) SN:[id number] Ordering Provid er: ISATU TODD Report Released Date/Time: Dec 07, 2021 10:28 AM Reporting Lab: [place] [facility] [address] [facility] [address] Performing Lab: [place] [facility] [address] [place] [facility] [place] [address] RETICULOCYTES (%) AUTOMATED 1.23 0. 6-2.0 RETICULOCYTES (ABS) AUTOMATED 0.052 0.030-0.090 Dec 06, 2021 09:45 [place] MRSA SURVL NARES Specimen Ty pe: NARES PM [facility] DNA No comment enter ed. Ordering Provid er: ALVARO VARGHESE Report Released Date/Time: Dec 07, 2021 02:20 AM Reporting Lab: [place] [facility] [address] [place] [facility] [place] [address] Performing Lab: [place] [facility] [address] [place] [facility] [place] [address] MRSA SURVL NARES DNA NEGATIVE NEGATIVE Dec 06, 2021 06:00 [place] URINALYSIS W/REFLEX TO Speci men Type: URINE PM [facility] CULTURE No comment enter ed. Ordering Provid er: JELANI SÁNCHEZ Report Released Date/Time: Dec 06, 2021 11:57 AM Reporting Lab: [place] [facility] [address] [facility] [address] Performing Lab: [place] [facility] [address] [facility] [place] [facility] [address] URINE COLOR Arlin YELLOW SPECIFIC GRAVITY 1.029 [...] 21, R[place] VARIANT Comment: https://www.cdc.gov/coronavirus/2019-ncov/cases-updates/variant- surveillance/variant-info.html The [employer] SARS CoV 2 Wiser (formerly [employer]) Research Assay-GX is a next-generation sequencing (NGS) assa 2021 [facility] SEQUENCING y that determine s the complete genome sequence of the SARS-CoV-2 virus. The assay contains variant-tolerant primers to broaden and improve the coverage for variant detection and increase the sensitivity 12:00 [facility] PNL() of the panel to enable detection from lower viral titer samples. The assay is run on the [employer] Sequencer, which performs automated library preparation, sequencing, analysis, and reporting. PM The sequence an alysis includes determination of viral phylogenetic lineage by comparison to the reference strain Wuhan-Hu-1, GenBank: [id number]. Sequence determination may not be possible owing [...] performance characteristics determined by the [facility] Molecular Diagnostics Laboratory, which is certified under the Clinical Laboratory Improveme nt Amendments (C MARCO) as qualified to perform high complexity clinical laboratory testing. This test is validated for clinical use at [facility] and should not be regarded as investigational or for research. The FDA does not require this test to go through premarket FDA review, and therefore it has not been cleared or approved by the FDA. This report was reviewed and approved by the on-service pathologist. Ordering Provid er: JELANI SÁNCHEZ Report Released Date/Time: Dec 06, 2021 01:13 PM Reporting [facility] [address] [facility] [address] Performing Lab[facility] [address] [facility] [address] SARS-CoV-2 CLADE() 22C (OMICRON) SARS-CoV-2 LINEAGE() BA.2.12.1 Dec 06, 2021 12:00 [facility] COVID-19 AG SCREEN Specimen Type: NASAL CAVITY [facility] PANEL BINAX(405) Comment: Testi ng Performed By: Mike Briscoe Ordering Provid er: JELANI SÁNCHEZ Report Released Date/Time: Dec 08, 2021 08:23 AM Reporting Lab[facility] [address] [facility] [address] Performing Lab: [facility] [address] [facility] [address] COVID-19 AG SCRN(wrj BINAX) POSITIVE HH NE G Dec 06, 2021 12:00 PM [facility] LIVER PROFILE Sp ecimen Type: PLASMA Comment: Testin g Performed on Pham [employer]estage (405) [id number] Ordering Provid er: JELANI SÁNCHEZ Report Released Date/Time: Dec 06, 2021 11:57 AM Reporting Lab: [facility] [address] [facility] [address] Performing Lab: [facility] [address] [facility] [address] PROTEIN, TOTAL 6.6 6.0-8.5 ALBUMIN 2.8 L 3.2-5.0 BILIRUBIN, TOTAL 0.6 0.2-1.2 ALKALINE PHOSPHATASE 134 40-150 ALT(SGPT) 13 7-52 AST(SGOT) 18 5-34 FIB-4 SCORE 1.94 <2.67 Dec 06, 2021 12:00 PM [facility] TROPONIN II Sp ecimen Type: PLASMA Comment: Tests performed on Pham Recording [employer] Setup Worker (405) SN:[id number] Ordering Provid er: JELANI SÁNCHEZ Report Released Date/Time: Dec 06, 2021 11:57 AM Reporting [facility] [address] [facility] [address] Performing Lab: [facility] [address] [facility] [address] TROPONIN II 0.03 0.00-0.29 Dec 06, 2021 [facility] P4 GLU,BUN,CREAT,LYTES,CA Speci men Type: PLASMA 12:00 PM [facility] Comment: Testin g Performed on Pham Recording Studio Setup Worker (405) SN:[id number] Ordering Provid er: JELANI SÁNCHEZ Report Released Date/Time: Dec 06, 2021 11:57 AM Reporting Lab: [facility] [address] [facility] [address] Performing Lab: [facility] [address] [facility] [address] UREA NITROGEN 13 7-25 SODIUM 138 135-145 POTASSIUM 3.8 3.5-5.0 CHLORIDE 103 100-110 CARBON DIOXIDE 23 20-30 ANION GAP 12 4-16 GLUCOSE 105 H 65-100 CREATININE 0.90 0.5-1.5 CALCIUM 8.7 8.5-10.5 eGFR(CKD-EPI 2020) >90.0 >60 Dec 06, 2021 12:00 PM [facility] BNP(P) Sp ecimen Type: PLASMA Comment: Tests performed on Pham Rec[employer] Studio Setup Worker (405) SN:[id number] Ordering Provid er: JELANI SÁNCHEZ Report Released Date/Time: Dec 06, 2021 11:57 AM Reporting Lab: [facility] [address] [facility] [address] Performing Lab: [facility] [address] [facility] [address] BNP(P) 224.8 H 10-100 Dec 06, 2021 [facility] COVID-19+FLU/RSV DIAGNOSTIC Spe cimen Type: NASOPHARYNX 12:00 PM [facility] PANEL(405) Comment: Tests performed on [employer] (405) Critical results called to and read back by: ALESHIA WILKINSON RN 12/06/21 @ 1312 Ordering Provid er: JELANI SÁNCHEZ Report Released Date/Time: Dec 06, 2021 11:57 AM Reporting Lab: [facility] [address] [facility] [address] Performing Lab: [facility] [address] [place] [id number] FLU A(PCR) NEGATIVE NEGATIVE FLU B(PCR) NEGATIVE NEGATIVE RSV(PCR) NEGATIVE NEGATIVE COVID-19([id number]) DETECTED HH NO T DETECTED Dec 06, 2021 12:00 PM [facility] CBC PROFILE Sp ecimen Type: BLOOD No comment enter ed. Ordering Provid er: JELANI SÁNCHEZ Report Released Date/Time: Dec 06, 2021 11:57 AM Reporting [facility]: [facility] [address] [facility] [address] Performing Lab: [facility] [address] [facility] [address] WBC 7.2 4.5-11.0 RBC 4.86 4.23-5.66 HGB [...] smoking and tobacco-related health factors from the [place] facility where the Encounter took place.Current Smoking Status This section includes the most current smoking, or tobacco-related health factor, from the [place] facility where the Encounter took place. Date/Time Current Smoking Status Comment Facility Dec 06, 2021 11:40 AM QUIT TOBACCO USE > 7 YEARS AGO [facility] Tobacco Use History This section includes a history of the smoking, or tobacco- related health factors, that were collected on or before the date of the Encounter. The data comes from the [place] facility where the Encounter took place. Date/Time Smoking Status/Tobacco Use Comment [facility] Apr 01, 2020 01:16 PM QUIT TOBACCO USE 1-7 YEARS AGO [facility] Mar 24, 2020 03:00 PM QUIT TOBACCO USE 1-7 YEARS AGO [facility] Feb 21, 2019 04:11 PM QUIT TOBACCO USE 1-7 YEARS AGO [facility] Feb 20, 2019 03:38 PM QUIT TOBACCO USE 1-7 YEARS AGO [facility] Feb 03, 2019 09:50 AM QUIT TOBACCO USE 1-7 YEARS AGO [facility] May 25, 2016 11:53 PM QUIT TOBACCO USE IN PAST YEAR [facility] May 23, 2016 06:57 PM QUIT TOBACCO USE > 7 YEARS AGO [facility] May 19, 2016 03:55 PM QUIT TOBACCO USE IN PAST YEAR [facility] May 19, 2016 10:29 AM QUIT TOBACCO USE 1-7 YEARS AGO [facility] May 01, 2016 07:26 PM QUIT TOBACCO USE IN PAST YEAR [facility] May 01, 2016 03:11 PM QUIT TOBACCO USE IN PAST YEAR [facility] May 01, 2016 11:19 AM QUIT TOBACCO USE IN PAST YEAR [facility] Mar 16, 2016 12:50 PM V1-PT DECLINES REF TO TOBACCO [facility] CESS PRGM Mar 16, 2016 12:50 PM V1-PT THINKING ABOUT QUIT [facility] TOBACCO USE Aug 12, 2015 08:48 AM CURRENT SMOKER CAREY Yates [facility] Radiology Reports: +/- 30 days of the [...] the Encounter. The data comes from all [place] treatment facilities. Date/Time Radiology Report Provider Source Dec 13, 2021 12:57 PM MRI ABDOMEN W/WO CONTRAST: MARYELLEN LONG JCT LUCAS MEEK N [id number] -1950 M [facility] Exm Date: DEC 13, 2021@12:57 Req Phys: ISATU TODD Loc: OP Unknown/0 12-15-2021@13:20 Img Loc: MRI IMAGING (OOS) Service: [facility] MEDICINE (Case [id number] COMPLETE) MRI ABDOMEN W/WO CONTRAST (M RI Detailed) CPT:58445 Reason for Study: further characterization of a [...] new lyphadenopathy REQUESTING MD: Isatu Todd PAGER: [phone] PHONE: [phone] Weight: 232.2 lb [105.32 kg] (12/12/2021 05:00) [...] patient will need to arrange for a driver trainer to take him/her home after the MRI [...] 15, 2021 Date Verified: DEC 15, 2021 Telephone Ad Taker E-Sig:/ES/MARYELLEN LONG Report: MRI ABDOMEN [...] MALIGNANCY Primary Interpreting Staff: MARYELLEN LONG Staff (Telephone Ad Taker) / Dec 10, 2021 09:[address] ABDOMEN & PELVIS: [facility] LUCAS [facility]EEK N [id number] -1950 M SERVICE [facility] Exm Date: DEC 10, 2021@09:30 Req Phys: ISATU TODD Loc: 1S MED/12-10@10:57 Img Loc: CT SCAN (OOS) Service: [facility] MEDICINE (Case [id number] COMPLETE) CT ABD & PELVIS WITHOUT CONT RAST (CT Detailed) CPT:01116 Reason for Study: 71 yo male with [...] INDEX - NO HEIGHTS FOUND Pager number: [phone] STAT orders MUST be call ed to RADIOLOGY [phone] to speak to the appropriate criminalist technician. Report Status: Verified Date Reported: DEC 10, 2021 Date Verified: DEC 10, 2021 Telephone Ad Taker E-Sig: Report: EXAM: CT abdomen [...] ph nodes. READING PHYSICIAN: Ramone Munoz D.O. -[phone] 12/10/2021 10:55 EDT [facility] National Teleradiology Program [phone] (For Medical Practitioner Use Only ) [address] [place] [address], [place] [address], [address] [place] [address] Attention Patients / Veterans: If you have ques tions or concerns about these test results, please contact your o rdering provider or primary care team. Primary Diagnostic Code: SIGNIFICANT ABNORMALIT Y, ATTN NEEDED Primary Interpreting Staff: RADIOLOGY,OUTSIDE SERVICE, Staff Physician / Dec 09, 2021 07:34 AM BASW (MODIFIED): JESSIE CHENEY [facility] T LUCAS MEEK N [id number] -1950 M [facility] Exm Date: DEC 09, 2021@07:34 Req Phys: ISATU TODD Loc: 1S MED/12-09@11:26 Img Loc: XRAY (OOS) Service: [facility] (Case [id number] COMPLETE) BASW (MODIFIED) (RAD Detaile d) CPT:59853 Contrast Media : Barium Reason for Study: dysphagia ?esophageal spasm Clinical History: Report Status: Verified Date Reported: DEC 09, 2021 Date Verified: DEC 09, 2021 Telephone Ad Taker E-Sig:/ES/JESSIE CHENEY Report: BASW (MODIFIED) [...] REQUIRED Primary Interpreting Staff: JESSIE CHENEY, RADIOLOGIST (Telephone Ad Taker) /TLC Dec 06, 2021 12:[address] CHEST (INCLUDES ADRENALS): JESSIE CHENEY [facility] LUCAS MEEK N [id number] -1950 M [facility] Exm Date: DEC 06, 2021@12:59 Req Phys: JELANI SÁNCHEZ Pat Loc: [facility] ED DAYS M 1RD (Req'g Loc) Img Loc: CT SCAN (OOS) Service: Unknown (Case [id number] COMPLETE) CT THORAX W/O CONT (CT Detai led) CPT:91310 Reason for Study: Opacification right chest Clinical History: No contrast allergy BUN: 13 (12/06/21 12:00) CREATI: 0.90 (12/06/21 12:00) eGFR 05/16/21 09:43 52 L Weight: 232.6 lb [105.51 kg] (12/06/2021 11:40) BODY MASS INDEX - NO HEIGHTS FOUND Pager number: [phone] STAT orders MUST be called t o RADIOLOGY [phone] to speak to the appropriate criminalist technician. Indications - Other: Opacification right chest, covid positive, lung cancer histo Report Status: Verified Date Reported: DEC 06, 2021 Date Verified: DEC 06, 2021 Telephone Ad Taker E-Sig:/ES/JESSIE CHENEY Report: CT THORAX [...] REQUIRED Primary Interpreting Staff: JESSIE CHENEY, RADIOLOGIST (Telephone Ad Taker) Primary Interpreting Resident: PRINCE CHAMPION, Resident /BR Dec 06, 2021 11:58 AM CHEST SINGLE VIEW: JESSIE CHENEYLUCAS N [id number] -1950 M [facility] Exm Date: DEC 06, 2021@11:58 Req Phys: JELANI SÁNCHEZ Pat Loc: [facility] ED DAYS M 1RD (Req'g Loc) Img Loc: XRAY (OOS) Service: Unknown (Case [id number] COMPLETE) CHEST SINGLE VIEW (RAD Detai led) CPT:06413 Proc Modifiers : PORTABLE EXAM Reason for Study: SOB, home covid test positive Clinical History: Report Status: Verified Date Reported: DEC 06, 2021 Date Verified: DEC 06, 2021 Telephone Ad Taker E-Sig:/ES/JESSIE CHENEY Report: Exam type: [...] REQUIRED Primary Interpreting Staff: JESSIE CHENEY, RADIOLOGIST (Telephone Ad Taker) /TLC Pathology Reports: +/- 30 [...] the Encounter. The data comes from all [place] treatment facilities. Date/Time Pathology Report Provider Source Jan 03, 2022 10:28 AM LR SURGICAL PATHOLOGY REPORT: STEFANY MILLER [place] LOCAL TITLE: LR SURGICAL PATHOLOGY REPORT [facility] STANDARD TITLE: PATHOLOGY REPORT DATE OF NOTE: JAN 03, 2022@10:28:01 ENTRY DATE: JAN 03, 2022@10:28:01 AUTHOR: NIURKA MILLER EXP COSIGNER: URGENCY: STATUS: COMPLETED $APHDR Reporting Lab: [facility] [CLIA# [id number]] [address] [place] [address] - - - - - - [...] automatically d ocumented from SURGERY package case #[id number] Field (#32) PRINCIPAL PRE-OP DIAGNOSIS, (#.72) OTHER [...] automatically d ocumented from SURGERY package case #[id number] Field (#34) PRINCIPAL POST-OP DIAG, (#.74) OTHER POSTOP DIAGS Esophageal cancer Surgeon/physician: MICHELLE CALERO Attending Surgeon: Yamel Hill MD =-=-=-=-=-=-=-=-=-=-=-=-=-=- =-=-=-=-=-=-=-=-=-=-=-=-=-=-=-=-=-=-=-=-=-=-=-=-=-= - - - - [...] GROSS DESCRIPTION: Name Label: Lucas Meek Paperwork: MeekPierreLucas N Cassette: [id number];..;MEEK;.;405;[id number] Specimen is labeled: ES bx Received in formalin are several pieces of pale boyd and brown tissue, 1.2 x 0.7 cm in aggregate. Submitted entirely in 1 cassette [id number];..;MEEK;.;405;[id number] SAW 12/15/2021 Microscopic exam: *+* MODIFIED REPORT *+* (Last modified: JAN 03, 2022@09:30:20 typed by NIURKA WADDELL) DIAGNOSIS: A. 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 Kendell long. TIARA Coombs was notified on 12/21/21. Modified on 01/03/22 to include report from [facility] stating that tumor is NEGATIVE for her2/ matheus amplification. The attending pathologist who signature mansoor ears on this report has reviewed all diagnostic slides and has edited t he gross and/or microscopic portion of this report in rendering the final pathologic diagnosis. [address] [address] CPT: 92012 /emely/ NIURKA Yeung MD Signed Jan 03, 2022@10:28 Performing Laboratory: Surgical Pathology Report Performed By: [facility] MONTO[facility] [CLIA# [id number]] [address] [place] [address] $FTR - - - - - [...] - - LUCAS MEEK STANDARD FORM 515 ID:[id number] SEX:M :1950 AGE: 71 LOC: SDM END PCP: Isatu Todd /charmaine Yeung MD Signed: 01/03/2022 10:28 Dec 21, 2021 11:46 AM LR SURGICAL PATHOLOGY REPORT: STEFANY MILLER [facility] LOC[facility] TITLE: LR SURGICAL PATHOLOGY REPORT [facility] STANDARD TITLE: PATHOLOGY REPORT DATE OF NOTE: DEC 21, 2021@11:46:59 ENTRY DATE: DEC 21, 2021@11:46:59 AUTHOR: NIURKA MILLER EXP COSIGNER: URGENCY: STATUS: COMPLETED $APHDR Reporting Lab: [facility] [CLIA# [id number]] [address] [place] [address] - - - - - - [...] automatically d ocumented from SURGERY package case #[id number] Field (#32) PRINCIPAL PRE-OP DIAGNOSIS, (#.72) OTHER [...] automatically d ocumented from SURGERY package case #[id number] Field (#34) PRINCIPAL POST-OP DIAG, (#.74) OTHER POSTOP DIAGS Esophageal cancer Surgeon/physician: MICHELLE CALERO Attending Surgeon: Yamel Hill MD =-=-=-=-=-=-=-=-=-=-=-=-=-=- =-=-=-=-=-=-=-=-=-=-=-=-=-=-=-=-=-=-=-=-=-=-=-=-=-= - - - - [...] Label: Lucas Meek Paperwork: Lucas Meek Cassette: [id number];..;KALYANI;.;405;[id number] Specimen is labeled: ES bx Received in formalin are several pieces of pale boyd and brown tissue, 1.2 x 0.7 cm in aggregate. Submitted entirely in 1 cassette [id number];..;KALYANI;.;405;[id number] SAW 12/15/2021 Microscopic exam: DIAGNOSIS: A. 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 Kendell long. TIARA Coombs was notified on 12/21/21. The attending pathologist who signature mansoor ears on this report has reviewed all diagnostic slides and has edited t he gross and/or microscopic portion of this report in rendering the final pathologic diagnosis. [address] [place] [address] CPT: 24482 /emely/ NIURKA Yeung MD Signed Dec 21, 2021@11:46 Performing Laboratory: Surgical Pathology Report Performed By: [facility] [CLIA# [id number]] [address] [place] [address] $FTR - - - - - [...] - - LUCAS MEEK STANDARD FORM 515 ID:[id number] SEX:M :1950 AGE: 71 LOC: SDM END PCP: Isatu Todd /emely/ NIURKA Yeung MD Signed: 12/21/2021 11:46 Dec 06, 2021 03:30 PM LR MICROBIOLOGY REPORT: [facility] Reporting Lab: [facility] [CLIA# [id number]] [address] [place] [address] Accession [UID]: [id number] [[id number]] Receiv ed: Dec 06, 2021@16:14 Collection sample: BLOOD CUL T BOTTLE(NIRMAL/AERO)Collection date: Dec 06, 2021 15:30 Site/Specimen: BLOOD Provider: JELANI SÁNCHEZ Comment on specimen: LAC Test(s) ordered: BLOOD CULTURE ANAEROBI C....... completed: Dec 12, 2021 06:18 * BACTERIOLOGY FINAL REPORT => Dec 12, 2021 06:1 8 TECH CODE: 40768 Bacteriology Remark(s): NO GROWTH IN 5 DAYS =--=--=--=--=--=--=--=--=--=--=--=--=--= --=--=--=--=--=--=--=--=--=--=--=--=-- Performing Laboratory: Bacteriology Report Performed By: [facility] [CLIA# [id number]] [address] [place] [address] Dec 06, 2021 03:30 PM LR MICROBIOLOGY REPORT: BANG DOYLE [facility] Reporting Lab: [facility] [CLIA# [id number]] [address] [place] [address] Accession [UID]: [id number] [[id number]] Receiv ed: Dec 06, 2021@16:14 Collection sample: BLOOD CUL T BOTTLE(NIRMAL/AERO)Collection date: Dec 06, 2021 15:30 Site/Specimen: BLOOD Provider: JELANI SÁNCHEZ Comment on specimen: LAC Test(s) ordered: BLOOD CULTURE AEROBIC. ........ completed: Dec 12, 2021 06:17 * BACTERIOLOGY FINAL REPORT => Dec 12, 2021 06:1 7 TECH CODE: 11570 Bacteriology Remark(s): NO GROWTH IN 5 DAYS =--=--=--=--=--=--=--=--=--=--=--=--=--= --=--=--=--=--=--=--=--=--=--=--=--=-- Performing Laboratory: Bacteriology Report Performed By: [facility] DOYLE [facility] [CLIA# [id number]] [address] [place] [address] Encounter Notes: All associated encounter notes This section contains the clinical notes associated to the Encounter. Date/Time Encounter Note(s) Provider Source Dec 21, 2021 01:57 PM GASTROENTEROLOGY TELEPHONE ENCOUNTER NOTE: YAMEL HILL [facility] LOCAL TITLE: Gastroenterology Telephone Note [facility] STANDARD TITLE: GASTROENTEROLOGY TELEPHONE ENCOU NTER NOTE DATE OF NOTE: DEC 21, 2021@13:57 ENTRY DATE: DEC 21, 2021@13:57:47 AUTHOR: YAMEL HILL EXP COSIGNER: URGENCY: STATUS: COMPLETED Gastroenterology Telephone Note Has ADDENDA called pt to inform about the results of recent EGD with biopsies. Not available, left msg and call back number. Path: Microscopic exam: DIAGNOSIS: A. 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 Rdz concurs. TIARA Coombs was notified on 12/21/21. 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 Above results from ulcerated esophageal mass are c/w met esophageal adenocarcinoma. Pt is followed for his lung cancer locally (see palliative care note), therefore will not submit onc referral. He had a recent MRI abd and CT a/p. Will cc palliative care who planned on f /u with pt. (If palliative care think, he should be seen by onc here at the [place], I'd ask them to put in a referral; thanks). /charmaine Yeung MD Signed: 12/21/2021 14:14 Receipt Acknowledged By: 12/21/2021 16:29 /emely/ TIERRA MELÉNDEZ Registered Nurse, [facility] 12/26/2021 ADDENDUM STATUS: COMPLETED reached pt today, Informed him about the biopsy results. He expected to cofirmation of cancer. He will f/u with his oncologist Dr. Sequeira in [place] on 01/18. Will cc palliative care, to see if there is anyt edilma else that we (at the [place]) can do for the pt. /charmaine Yeung MD Signed: 12/26/2021 12:40 Receipt Acknowledged By: * AWAITING SIGNATURE * TIERRA MELÉNDEZ
--- OUTSIDE RECORDS SUMMARY | 2022-01-19 08:12 | XMS_ITS | Encounter Summary ---
:1950 Author Organization [facility] Address [address] [place] [id number] Support Name Relationship Address Phone YUSRA MEEK Unavailable [address] - [facility] [place] [address] YUSRA MEEK Unavailable [address] - [facility] [place] [address] CLAY MOSLEY Unavailable Unavailable SJ SANTACRUZ Unavailable [...] MEDICARE MEDICARE PART Jun 18, PART A [id number] DO KALYANI PATIENT (WNR) (M) A 2016 13A 1 UGLAS MEDICARE MEDICARE PART Jun 18, PART B [id number] DO KALYANI PATIENT (WNR) (M) B 2016 13A 1 U[place]AS MEDICARE MEDICARE PART Jun 18, PART A [id number] KALYANIDO PATIENT (WNR) (M) A 2017 VH81 2 UGLAS MEDICARE MEDICARE PART Jun 18, PART B [id number] DO KALYANI PATIENT (WNR) (M) B 2017 VH81 2 LAS UNITED MEDICARE MCR(Jun 18 [id number] Luz MEEK PATIENT HEALTHCARE ADVANTAGE NR) 2021 37 0 [facility] (WNR) Selected Encounter This section includes the information on record at [place] for the Encounter. Date/Time Encounter Type Encounter Description Reason Provider Source Dec 22, 2021 12:49 Outpatient Encounter TELEPHONE CASE PM MANAGEMENT IHE [...] 10, 2022 11:30 AM [facility] Jan 24, 2022 08:00 AM [place] [facility] Feb 21, 2022 10:00 AM [place] [facility] Mar 21, 2022 10:30 [facility] Active, Pending, and Scheduled Orders This [...] The data comes from all [place] treatment [facility]. Test Date/Time Test Type Test Details Facility Name November 15, 2021 10:37 AM Consult Order [facility] CARE-PODIATRY Cons Type Inspector's Choice Dec 06, 2021 12:52 PM [place]acy [place] Infusion Order [facility] Dec 06, 2021 03:24 PM Pharmacy [place] [facility] Dec 06, 2021 03:40 PM [place]acy [place] [facility] Dec 15, 2021 08:41 AM Consult Order SPEECH PATHOLOGY [place] OUTPAT[place] Cons [facility] Type Inspector's Choice Jan 15, 2022 10:08 PM Consult Order [facility] CARE-PALLIATIVE CARE Cons Type Inspector's Choice Lab Results: +/- 30 days of [...] GLU,BUN,CREAT,LYTES,CA Speci men Type: PLASMA 06:43 AM [facility] Comment: Tests performed on [employer] (405) SN:[id number] Ordering Provid er: ISATU TODD Report Released Date/Time: Dec 11, 2021 07:42 AM Reporting Lab: [facility] [address] [facility] [address] Performing Lab: [facility] [address] [facility] [address] UREA NITROGEN 9 7-25 SODIUM 137 135-145 POTASSIUM 3.8 3.5-5.0 CHLORIDE 105 100-110 CARBON DIOXIDE 26 20-30 ANION GAP 6 4-16 GLUCOSE 102 H 65-100 CREATININE 0.64 0.5-1.5 CALCIUM 8.1 L 8.5-10.5 eGFR(CKD-EPI 2020) >90.0 >60 Dec 15, 2021 06:43 [facility] CBC PROFILE Sp ecimen Type: BLOOD No comment enter ed. Ordering Provid er: ISATU TODD Report Released Date/Time: Dec 10, 2021 07:22 AM Reporting Lab: [facility] [address] [facility] [address] Performing Lab: [facility] [address] [facility] [address] WBC 5.7 4.5-11.0 RBC 4.22 L 4.23-5.66 [...] ABSOLUTE NRBC 0.00 0-0 Dec 14, 2021 [facility] CYTOGENETIC Specimen Type: ESOPHAGUS 02:59 PM [facility] FISH([facility]) Comment: ~For T est: CYTOGENETIC FISH([facility]) ~FISH HER 2 NUE, FFPE See full report in [employer] Image display viewer/tab#LAB-Reference Ordering Provid er: NIURKA MILLER Report Released Date/Time: Dec 21, 2021 12:11 PM Reporting Lab: [facility] [address] [facility] [address] Performing Lab: [facility] CYTOGENETIC FISH([facility]) comment Dec 14, 2021 [facility] P4 GLU,BUN,CREAT,LYTES,CA Speci men Type: PLASMA 06:27 AM [facility] Comment: Tests performed on [employer]ights (405) SN:[id number] Ordering Provid er: ISATU TODD Report Released Date/Time: Dec 11, 2021 07:42 AM Reporting Lab: [facility] [address] [facility] [address] Performing Lab: [facility] [address] [facility] [address] UREA NITROGEN 10 7-25 SODIUM 137 135-145 [...] 10, 2021 07:22 AM Reporting Lab: [facility] [address] [facility] [address] Performing Lab: [facility] [address] [facility] [address] WBC 6.0 4.5-11.0 RBC 4.29 4.23-5.66 HGB [...] NRBC 0.00 0-0 Dec 13, 2021 [facility] GLU,BUN,CREAT,LYTES,CA Speci men Type: PLASMA 06:34 AM [facility] Comment: Tests performed on [employer]ights (085) SN:[id number] Ordering Provid er: ISATU TODD Report Released Date/Time: Dec 11, 2021 07:42 AM Reporting Lab: [facility] [address] [facility] [address] Performing [facility]: [facility] [address] [facility] [address] UREA NITROGEN 12 7-25 SODIUM 136 135-145 [...] AM Reporting Lab: [facility] [address] [facility] [address] Performing Lab: [facility] [address] [facility] [address] WBC 5.6 4.5-11.0 RBC 4.28 4.23-5.66 HGB [...] ABSOLUTE NRBC 0.00 0-0 Dec 12, 2021 [facility] P4 GLU,BUN,CREAT,LYTES,CA Speci men Type: PLASMA 06:21 AM [facility] Comment: Tests performed on [employer] (405) SN:[id number] Ordering Provid er: ISATU TODD Report Released Date/Time: Dec 11, 2021 07:42 AM Reporting Lab: [facility] [address] [facility] [address] Performing Lab: [facility] [address] [facility] [address] UREA NITROGEN 11 7-25 SODIUM 139 135-145 [...] AM Reporting Lab: [facility] [address] [facility] [address] Performing Lab: [facility] [address] [facility] [address] WBC 5.5 4.5-11.0 RBC 4.37 4.23-5.66 HGB [...] Type: PLASMA Comment: Testin g Performed on [employer]ights (405) SN:[id number] Ordering Provid er: ISATU TODD Report Released Date/Time: Dec 12, 2021 08:24 AM Reporting Lab: [place] [facility] [address] [facility] [address] Performing Lab: [place] [facility] [address] [facility] [address] MAGNESIUM 1.8 1.6-2.6 Dec 12, 2021 06:00 AM [place] [facility] PHOSPHORUS Sp ecimen Type: PLASMA Comment: Testin g Performed on [employer] (405) SN:[id number] Ordering Provid er: ISATU TODD Report Released Date/Time: Dec 12, 2021 08:24 AM Reporting Lab: [place] [facility] [address] [facility] [address] Performing Lab: [place] [facility] [address] [facility] [address] PHOSPHORUS 3.1 2.5-5.0 Dec 11, 2021 06:15 AM [place] [facility] ELECTROLYTES Sp ecimen Type: PLASMA Comment: Tests performed on [employer] (405) SN:[id number] Ordering Provid er: ISATU TODD Report Released Date/Time: Dec 10, 2021 07:22 AM Reporting Lab: [place] [facility] [address] [facility] [address] Performing Lab: [place] [facility] [address] [facility] [address] SODIUM 137 135-145 POTASSIUM 4.3 3.5-5.0 CHLORIDE 108 100-110 CARBON DIOXIDE 20 20-30 ANION GAP 9 4-16 Dec 11, 2021 06:15 AM [place] [facility] CBC PROFILE Sp ecimen Type: BLOOD Comment: Result s checked Ordering Provid er: ISATU TODD Report Released Date/Time: Dec 10, 2021 07:22 AM Reporting Lab: [place] [facility] [address] [facility] [address] Performing Lab: [place] [facility] [address] [facility] [address] WBC 5.8 4.5-11.0 RBC 4.37 4.23-5.66 HGB [...] 0.00 0-0 Dec 11, 2021 06:00 AM [facility] PHOSPHORUS Sp ecimen Type: PLASMA Comment: Tests performed on [employer] (405) SN:[id number] Results checked Ordering Provid er: ISATU TODD Report Released Date/Time: Dec 11, 2021 07:44 AM Reporting Lab: [place] [facility] [address] [facility] [address] Performing Lab: [place] [facility] [address] [facility] [address] PHOSPHORUS 3.0 2.5-5.0 Dec 10, 2021 08:05 AM [facility] MAGNESIUM Sp ecimen Type: PLASMA Comment: [place] [id number] on Dec 10, 2021@08:31 Tests performed on [employer] (405) SN:[id number] Ordering Provid er: ISATU TODD Report Released Date/Time: Dec 10, 2021 07:22 AM Reporting Lab: [place] [facility] [address] [place] [facility] [place] [place] [address] Performing Lab: [place] [facility] [address] [place] [facility] [place] [address] MAGNESIUM 1.7 1.6-2.6 Dec 10, 2021 08:05 AM [place] [facility] PHOSPHORUS Sp ecimen Type: PLASMA Comment: [place] [id number] on Dec 10, 2021@08:31 Tests performed on [employer] (405) SN:[id number] Ordering Provid er: ISATU TODD Report Released Date/Time: Dec 10, 2021 07:22 AM Reporting Lab: [place] [facility] [address] [place] [facility] [place] [address] Performing Lab: [place] [facility] [address] [place] [facility] [place] [address] PHOSPHORUS 1.8 L 2.5-5.0 Dec 10, 2021 08:05 AM [place] UREA NITROGEN Specimen Type: PLASMA [facility] Comment: [place] [id number] on Dec 10, 2021@08:31 Tests performed on [employer] (405) SN:[id number] Ordering Provid er: ISATU TODD Report Released Date/Time: Dec 10, 2021 07:22 AM Reporting Lab: [place] [facility] [address] [place] [facility] [place] [address] Performing Lab: [place] [facility] [address] [place] [facility] [place] [address] UREA NITROGEN 8 7-25 Dec 10, 2021 08:05 AM [place] [facility] CALCIUM Sp ecimen Type: PLASMA Comment: [place] [id number] on Dec 10, 2021@08:31 Tests performed on [employer] (405) SN:[id number] Ordering Provid er: ISATU TODD Report Released Date/Time: Dec 10, 2021 07:22 AM Reporting Lab: [place] [facility] [address] [place] [facility] [place] [address] Performing Lab: [place] [facility] [address] [place] [facility] [place] [address] CALCIUM 8.3 L 8.5-10.5 Dec 10, 2021 08:05 AM [place] [facility] ELECTROLYTES Sp ecimen Type: PLASMA Comment: [place] [id number] on Dec 10, 2021@08:31 Tests performed on [employer] (405) SN:[id number] Ordering Provid er: ISATU TODD Report Released Date/Time: Dec 10, 2021 07:22 AM Reporting Lab: [place] [facility] [address] [facility] [address] Performing Lab: [place] [facility] [address] [facility] [address] SODIUM 139 135-145 POTASSIUM 3.7 3.5-5.0 CHLORIDE 107 100-110 CARBON DIOXIDE 24 20-30 ANION GAP 8 4-16 Dec 10, 2021 08:05 AM [place] [facility] GLUCOSE Sp ecimen Type: PLASMA Comment: [place] [id number] on Dec 10, 2021@08:31 Tests performed on [employer] (405) SN:[id number] Ordering Provid er: ISATU TODD Report Released Date/Time: Dec 10, 2021 07:22 AM Reporting Lab: [place] [facility] [address] [facility] [address] Performing Lab: [place] [facility] [address] [facility] [address] GLUCOSE 144 H 65-100 Dec 10, 2021 08:05 [place] CREATININE WITH eGFR Specime n Type: PLASMA AM [facility] PANEL Comment: [place] [id number] on Dec 10, 2021@08:31 Tests performed on [employer] (405) SN:[id number] Ordering Provid er: ISATU TODD Report Released Date/Time: Dec 10, 2021 07:22 AM Reporting Lab: [place] [facility] [address] [facility] [address] Performing Lab: [place] [facility] [address] [facility] [address] CREATININE 0.78 0.5-1.5 eGFR(CKD-EPI 2020) >90.0 >60 Dec 10, 2021 08:05 AM [place] [facility] CBC PROFILE Sp ecimen Type: BLOOD No comment enter ed. Ordering Provid er: ISATU TODD Report Released Date/Time: Dec 10, 2021 07:22 AM [facility] [address] [facility] [address] Performing Lab: [facility] [address] [facility] WBC 7.0 4.5-11.0 RBC 4.54 4.23-5.66 HGB [...] ecimen Type: PLASMA Comment: Tests performed on [employer] (405) SN:[id number] Ordering Provid er: ISATU TODD Report Released Date/Time: Dec 08, 2021 10:23 AM Reporting [facility] [address] [facility] [address] Performing Lab: [facility] [address] [facility] [address] MAGNESIUM 1.6 1.6-2.6 Dec 09, 2021 [facility] P4 GLU,BUN,CREAT,LYTES,CA Speci men Type: PLASMA 06:46 AM [facility] Comment: Tests performed on [employer] (405) SN:[id number] Ordering Provid er: ISATU TODD Report Released Date/Time: Dec 08, 2021 05:00 PM Reporting Lab: [facility] [address] [facility] [address] Performing Lab: [facility] [address] [facility] [address] UREA NITROGEN 6 L 7-25 SODIUM 134 [...] 08, 2021 05:00 PM Reporting Lab: [facility] [address] [facility] [address] Performing Lab: [facility] [address] [facility] [address] WBC 7.1 4.5-11.0 RBC 4.40 4.23-5.66 HGB [...] Type: PLASMA Comment: Testin g Performed on [employer] (405) SN:[id number] Ordering Provid er: ISATU TODD Report Released Date/Time: Dec 07, 2021 10:32 AM Reporting Lab: [place] [facility] [address] [facility] [address] Performing Lab: [place] [facility] [address] [facility] [address] MAGNESIUM 1.5 L 1.6-2.6 Dec 08, 2021 [place] P4 GLU,BUN,CREAT,LYTES,CA Speci men Type: PLASMA 06:39 AM [facility] Comment: Testin g Performed on [employer] (405) SN:[id number] Ordering Provid er: ISATU TODD Report Released Date/Time: Dec 07, 2021 10:32 AM Reporting Lab: [place] [facility] [address] [facility] [address] Performing Lab: [place] [facility] [address] [facility] [address] UREA NITROGEN 6 L 7-25 SODIUM 136 135-145 POTASSIUM 3.3 L 3.5-5.0 CHLORIDE 104 100-110 CARBON DIOXIDE 22 20-30 ANION GAP 10 4-16 GLUCOSE 133 H 65-100 CREATININE 0.76 0.5-1.5 CALCIUM 8.4 L 8.5-10.5 eGFR(CKD-EPI 2020) >90.0 >60 Dec 08, 2021 06:39 AM [place] [facility] CBC PROFILE Sp ecimen Type: BLOOD No comment enter ed. Ordering Provid er: ISATU TODD Report Released Date/Time: Dec 07, 2021 10:32 AM Reporting Lab: [place] [facility] [address] [facility] [address] Performing Lab: [place] [facility] [address] [facility] [address] WBC 8.4 4.5-11.0 RBC 4.75 4.23-5.66 HGB [...] ABSOLUTE NRBC 0.00 0-0 Dec 07, 2021 [facility] P4 GLU,BUN,CREAT,LYTES,CA Speci men Type: PLASMA 06:42 AM [facility] Comment: Tests performed on [employer] (405) SN:[id number] Ordering Provid er: PORFIRIO WALTERS Report Released Date/Time: Dec 06, 2021 06:57 PM Reporting Lab: [facility] [address] [facility] [address] Performing Lab: [facility] [address] [facility] [address] UREA NITROGEN 9 7-25 SODIUM 135 135-145 POTASSIUM 3.5 3.5-5.0 CHLORIDE 103 100-110 CARBON DIOXIDE 22 20-30 ANION GAP 10 4-16 GLUCOSE 92 65-100 CREATININE 0.73 0.5-1.5 CALCIUM 8.0 L 8.5-10.5 eGFR(CKD-EPI 2020) >90.0 >60 Dec 07, 2021 06:42 [place] LIVER PROFILE Specimen Typ e: PLASMA AM [facility] Comment: Tests performed on [employer] (405 SN:[id number] Ordering Provid er: PORFIRIO WALTERS Report Released Date/Time: Dec 06, 2021 06:57 PM Reporting Lab: [facility] [address] [facility] [address] Performing Lab: [facility] [address] [facility] [address] PROTEIN, TOTAL 5.7 L 6.0-8.5 ALBUMIN 2.4 L 3.2-5.0 BILIRUBIN, TOTAL 0.4 0.2-1.2 ALKALINE PHOSPHATASE 109 40-150 ALT(SGPT) 10 7-52 AST(SGOT) 15 5-34 FIB-4 SCORE 1.92 <2.67 Dec 07, 2021 06:42 AM [facility] CBC PROFILE Specimen Type: BLOOD [facility] No comment enter ed. Ordering Provid er: PORFIRIO WALTERS Report Released Date/Time: Dec 06, 2021 06:57 PM Reporting Lab: [facility] [address] [facility] [address] Performing Lab: [facility] [address] [facility] [address] WBC 5.7 4.5-11.0 RBC 4.15 L 4.23-5.66 [...] [facility] %) AUTOMATED Comment: Tests performed on [employer] (405) SN:[id number] Ordering Provid er: ISATU TODD Report Released Date/Time: Dec 07, 2021 10:28 AM Reporting Lab: [place] [facility] [address] [facility] [address] Performing Lab: [place] [facility] [address] [facility] [address] RETICULOCYTES (%) AUTOMATED 1.23 0. 6-2.0 RETICULOCYTES (ABS) AUTOMATED 0.052 0.030-0.090 Dec 06, 2021 09:45 [place] MRSA SURVL NARES Specimen Ty pe: NARES PM [facility] DNA No comment enter ed. Ordering Provid er: ALVARO VARGHESE Report Released Date/Time: Dec 07, 2021 02:20 AM Reporting Lab: [place] [facility] [address] [facility] [address] Performing Lab: [place] [facility] [address] [facility] [address] MRSA SURVL NARES DNA NEGATIVE NEGATIVE Dec 06, 2021 06:00 [place] URINALYSIS W/REFLEX TO Speci men Type: URINE PM [facility] CULTURE No comment enter ed. Ordering Provid er: JELANI SÁNCHEZ Report Released Date/Time: Dec 06, 2021 11:57 AM Reporting Lab: [place] [facility] [address] [facility] [address] Performing Lab: [place] [facility] [address] [facility] [address] URINE COLOR Arlin YELLOW SPECIFIC GRAVITY 1.029 [...] 21, R[place] VARIANT Comment: https://www.cdc.gov/coronavirus/2019-ncov/cases-updates/variant- surveillance/variant-info.html The [employer]Seq SARS CoV 2 Patient Conversation Media Research Assay-GX is a next-generation sequencing (NGS) assa 2021 [facility] SEQUENCING y that determine s the complete genome sequence of the SARS-CoV-2 virus. The assay contains variant-tolerant primers to broaden and improve the coverage for variant detection and increase the sensitivity 12:00 [facility] PNL() of the panel to enable detection from lower viral titer samples. The assay is run on the Accurence Sequencer, which performs automated library preparation, sequencing, analysis, and reporting. PM The sequence an alysis includes determination of viral phylogenetic lineage by comparison to the reference strain Wuhan-Hu-1, GenBank: [id number]. Sequence determination may not be possible owing [...] and its performance characteristics determined by the [facility] Molecular Diagnostics Laboratory, which is certified under the Clinical Laboratory Improveme nt Amendments (C MARCO) as qualified to perform high complexity clinical laboratory testing. This test is validated for clinical use at [facility] and should not be regarded as investigational or for research. The FDA does not require this test to go through premarket FDA review, and therefore it has not been cleared or approved by the FDA. This report was reviewed and approved by the on-service pathologist. Ordering Provid er: JELANI SÁNCHEZ Report Released Date/Time: Dec 06, 2021 01:13 PM Reporting Lab: [facility] [address] [facility] [address] Performing Lab: [facility] [address] [facility] [address] SARS-CoV-2 CLADE() 22C (OMICRON) SARS-CoV-2 LINEAGE() BA.2.12.1 Dec 06, 2021 12:00 [facility] S[facility] Specimen Type: NASAL CAVITY PM [facility] PANEL BINAX(405) Comment: Testi ng Performed By: Mike Briscoe Ordering Provid er: JELANI SÁNCHEZ Report Released Date/Time: Dec 08, 2021 08:23 AM Reporting Lab: [place] [facility] [address] [place] [facility] [place] [address] Performing Lab: [place] [facility] [address] [facility] [address] COVID-19 AG SCRN(wrj BINAX) POSITIVE HH NE G Dec 06, 2021 12:00 PM [place] [facility] LIVER PROFILE Sp ecimen Type: PLASMA Comment: Testin g Performed on [employer] (405) SN:[id number] Ordering Provid er: JELANI SÁNCHEZ Report Released Date/Time: Dec 06, 2021 11:57 AM Reporting Lab: [place] [facility] [address] [place] [facility] [place] [address] Performing Lab: [place] [facility] [address] [place] [facility] [place] [address] PROTEIN, TOTAL 6.6 6.0-8.5 ALBUMIN 2.8 L 3.2-5.0 BILIRUBIN, TOTAL 0.6 0.2-1.2 ALKALINE PHOSPHATASE 134 40-150 ALT(SGPT) 13 7-52 AST(SGOT) 18 5-34 FIB-4 SCORE 1.94 <2.67 Dec 06, 2021 12:00 [facility] BNP(P) Sp ecimen Type: PLASMA Comment: Tests performed on [employer] (405) SN:[id number] Ordering Provid er: JELANI SÁNCHEZ Report Released Date/Time: Dec 06, 2021 11:57 AM Reporting Lab: [place] [facility] [address] [place] [facility] [place] [address] Performing Lab: [place] [facility] [address] [place] [facility] [place] [address] BNP(P) 224.8 H 10-100 Dec 06, 2021 12:00 PM [facility] TROPONIN II Sp ecimen Type: PLASMA Comment: Tests performed on [employer] (405) SN:[id number] Ordering Provid er: JELANI SÁNCHEZ Report Released Date/Time: Dec 06, 2021 11:57 AM Reporting Lab: [facility] [address] [facility] [address] Performing Lab: [facility] [address] [facility] [address] TROPONIN II 0.03 0.00-0.29 Dec 06, 2021 [facility] P4 GLU,BUN,CREAT,LYTES,CA Speci men Type: PLASMA 12:00 PM [facility] Comment: Testin g Performed on [employer] (405) SN:[id number] Ordering Provid er: JELANI SÁNHCEZ Report Released Date/Time: Dec 06, 2021 11:57 AM Reporting Lab: [facility] [address] [facility] [address] Per[facility]: [facility] [address] [facility] [address] UREA NITROGEN 13 7-25 SODIUM 138 135-145 POTASSIUM 3.8 3.5-5.0 CHLORIDE 103 100-110 CARBON DIOXIDE 23 20-30 ANION GAP 12 4-16 GLUCOSE 105 H 65-100 CREATININE 0.90 0.5-1.5 CALCIUM 8.7 8.5-10.5 eGFR(CKD-EPI 2020) >90.0 >60 Dec 06, 2021 [facility]+FLU/RSV DIAGNOSTIC Spe cimen Type: NASOPHARYNX 12:00 PM [facility] PANEL(405) Comment: Tests performed on [employer] (405) Critical results called to and read back by: ALESHIA WILKINSON RN 12/06/21 @ 1312 Ordering Provid er: JELANI SÁNCHEZ Report Released Date/Time: Dec 06, 2021 11:57 AM Reporting [facility]: [facility] [address] [facility] [address] Performing Lab: [facility] [address] [facility] [address] FLU A(PCR) NEGATIVE NEGATIVE FLU B(PCR) NEGATIVE NEGATIVE RSV(PCR) NEGATIVE NEGATIVE COVID-19(XVB-eke-MBDLMVXST) DETECTED HH NO T DETECTED Dec 06, 2021 12:00 PM [facility] CBC PROFILE Sp ecimen Type: BLOOD No comment enter ed. Ordering Provid er: JELANI SÁNCHEZ Report Released Date/Time: Dec 06, 2021 11:57 AM Reporting Lab: [facility] [address] [facility] [address] Performing Lab: [facility] [address] [facility] [address] WBC 7.2 4.5-11.0 RBC 4.86 4.23-5.66 HGB [...] QUIT TOBACCO USE 1-7 YEARS AGO [facility] Mar 24, 2020 [...] AM CURRENT SMOKER CAREY Yates [facility] Radiology Reports: +/- 30 days of [...] CONTRAST: MARYELLEN LONG [place] LUCAS MEEK N [id number] M [facility] Exm Date: DEC 13, 2021@12:57 Req Phys: ISATU TODD Loc: OP Unknown/0 12-15-2021@13:20 Img Loc: MRI IMAGING ([facility]) Service: ZZGENERAL MEDICINE (Case [id number] COMPLETE) MRI ABDOMEN W/WO CONTRAST (M RI Detailed) CPT:87307 Reason for Study: further characterization of a [...] new lyphadenopathy REQUESTING MD: Isatu Todd PAGER: [phone] PHONE: [phone] Weight: 232.2 lb [105.32 kg] (12/12/2021 05:00) [...] will need to arrange for a driver merchandiser to take him/her home after the MRI [...] 15, 2021 Date Verified: DEC 15, 2021 [employer] E-Sig:/ES/MARYELLEN LONG Report: MRI ABDOMEN W/WO CONTRAST [...] MALIGNANCY Primary Interpreting Staff: Staff AMELIA THOMAS ([employer]) / Dec 10, 2021 09:[address] ABDOMEN & PELVIS: RADIOLOGY,OUTSIDE [place] [facility] LUC[facility] N [id number] -1950 M [facility] Exm Date: DEC 10, 2021@09:30 Req Phys: ISATU TODD Loc: 1S MED/12-10@10:57 Img Loc: CT SCAN (OOS) Service: [facility] MEDICINE (Case [id number] COMPLETE) CT ABD & PELVIS WITHOUT CONT RAST (CT Detailed) CPT:56681 Reason for Study: 71 yo male with [...] INDEX - NO HEIGHTS FOUND Pager number: [phone] STAT orders MUST be call ed to RADIOLOGY [phone] to speak to the appropriate environmental laboratory technician. Report Status: Verified Date Reported: DEC 10, 2021 Date Verified: DEC 10, 2021 [employer] E-Sig: Report: EXAM: CT abdomen and pelvis [...] ph nodes. READING PHYSICIAN: Ramone Munoz D.O. [phone] 12/10/2021 10:55 EDT [facility] [phone] (For Medical Practitioner Use Only ) [address] [place] [address], [address] [place] [address] Attention Patients / Veterans: If you have ques tions or concerns about these test results, please contact your o [facility] provider or primary care team. Primary Diagnostic Code: SIGNIFICANT ABNORMALIT Y, ATTN NEEDED Primary Interpreting Staff: RADIOLOGY,OUTSIDE SERVICE, Staff Physician / Dec 09, 2021 07:34 AM BASW (MODIFIED): JESSIE CHENEY [facility] LUCAS MEEK N [id number] -1950 [facility] Exm Date: DEC 09, 2021@07:34 Req Phys: ISATU TODD Loc: MED/12-09@11:26 Img Loc: XRAY (OOS) Service: [facility] MEDICINE (Case [id number] COMPLETE) BASW (MODIFIED) (EUNICE Detaile d) CPT:71224 Contrast Media : Barium Reason for Study: dysphagia ?esophageal spasm Clinical History: Report Status: Verified Date Reported: DEC 09, 2021 Date Verified: DEC 09, 2021 [employer] E-Sig:/ES/JESSIE CHENEY Report: DELISA (MODIFIED) , 12/09/2021 [...] REQUIRED Primary Interpreting Staff: JESSIE CHENEY, RADIOLOGIST (Aircraft Fueler) /TLC Dec 06, 2021 12:[address] CHEST (INCLUDES ADRENALS): [facility] [id number] -1950 M [facility] Exm Date: DEC 06, 2021@12:59 Req Phys: JELANI SÁNCHEZ Loc: [facility] ED DAYS M 1RD (Req'g Loc) Img Loc: CT SCAN (OOS) Service: Unknown (Case [id number] COMPLETE) CT THORAX W/O CONT (CT Detai led) CPT:82385 Reason for Study: Opacification right chest Clinical History: No contrast allergy BUN: 13 (12/06/21 12:00) CREATI: 0.90 (12/06/21 12:00) eGFR 05/16/21 09:43 52 L Weight: 232.6 lb [105.51 kg] (12/06/2021 11:40) BODY MASS INDEX - NO HEIGHTS FOUND Pager number: [phone] STAT orders MUST be called t o RADIOLOGY [phone] to speak to the appropriate environmental laboratory technician. Indications - Other: Opacification right chest, covid positive, lung cancer histo Report Status: Verified Date Reported: DEC 06, 2021 Date Verified: DEC 06, 2021 [employer] E-Sig:/ES/JESSIE CHENEY Report: CT THORAX W/O CONT [...] REQUIRED Primary Interpreting Staff: JESSIE CHENEY RADIOLOGIST (Aircraft Fueler) Primary Interpreting Resident: PRINCE CHAMPION, Resident /ABBI Dec 06, 2021 11:58 AM CHEST SINGLE VIEW: JESSIE CHENEY LUCAS MEEK [id number] -1950 M [facility] Exm Date: DEC 06, 2021@11:58 Req Phys: JELANI SÁNCHEZ Pat Loc: [facility] ED DAYS M 1RD (Req'g Loc) Img Loc: XRAY (OOS) Service: Unknown (Case [id number] COMPLETE) CHEST SINGLE VIEW (RAD Detai led) CPT:24873 Proc Modifiers : PORTABLE EXAM Reason for Study: SOB, home covid test positive Clinical History: Report Status: Verified Date Reported: DEC 06, 2021 Date Verified: DEC 06, 2021 [employer] E-Sig:/ES/JESSIE CHENEY Report: Exam type: Chest x-ray [...] REQUIRED Primary Interpreting Staff: JESSIE CHENEY RADIOLOGIST (Aircraft Fueler) /TLC Pathology Reports: +/- 30 days of [...] MILLER LOCAL TITLE: LR SURGICAL PATHOLOGY REPORT [facility] STANDARD TITLE: PATHOLOGY REPORT DATE OF NOTE: JAN 03, 2022@10:28:01 ENTRY DATE: JAN 03, 2022@10:28:01 AUTHOR: NIURKA MILLER EXP COSIGNER: URGENCY: STATUS: COMPLETED $APHDR Reporting Lab: [facility] [CLIA# [id number]] [address] [place] [address] - - - - - - [...] automatically d ocumented from SURGERY package case #[id number] Field (#32) PRINCIPAL PRE-OP DIAGNOSIS, (#.72) OTHER [...] automatically d ocumented from SURGERY package case #[id number] Field (#34) PRINCIPAL POST-OP DIAG, (#.74) OTHER [...] Label: Lucas Meek Paperwork: Lucas Meek Cassette: [id number];..;KALYANI;.;550;[phone] Specimen is labeled: ES bx Received in formalin are several pieces of pale boyd and brown tissue, 1.2 x 0.7 cm in aggregate. Submitted entirely in 1 cassette [id number];..;KALYANI;.;710;[phone] SAW 12/15/2021 Microscopic exam: *+* MODIFIED REPORT *+* (Last modified: JAN 03, 2022@09:30:20 typed by NIURKA WADDELL) DIAGNOSIS: A. 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 Kendell long. TIARA Coombs was notified on 12/21/21. Modified on 01/03/22 to include report from [facility] stating that tumor is NEGATIVE for her2/ matheus amplification. The attending pathologist who signature mansoor ears on this report has reviewed all diagnostic slides and has edited t he gross and/or microscopic portion of this report in rendering the final pathologic diagnosis. [address] [address] CPT: 30481 /emely/ NIURKA Yeung MD Signed Jan 03, 2022@10:28 Performing Laboratory: Surgical Pathology Report Performed By: [facility] [CLIA# [id number]] [address] [place] [address] $FTR - - - - - [...] - - LUCAS MEEK STANDARD FORM 515 ID:[id number] SEX:M :1950 AGE: 71 LOC: SDM END PCP: Isatu Todd /charmaine Yeung MD Signed: 01/03/2022 10:28 Dec 21, 2021 11:46 AM LR SURGICAL PATHOLOGY REPORT: STEFANY MILLER LOCAL TITLE: LR SURGICAL PATHOLOGY REPORT [facility] STANDARD TITLE: PATHOLOGY REPORT DATE OF NOTE: DEC 21, 2021@11:46:59 ENTRY DATE: DEC 21, 2021@11:46:59 AUTHOR: NIURKA MILLER EXP COSIGNER: URGENCY: STATUS: COMPLETED $APHDR Reporting Lab: [facility] [CLIA# [id number]] [address] [place] [facility] [place] [address] - - - - - - [...] automatically d ocumented from SURGERY package case #[id number] Field (#32) PRINCIPAL PRE-OP DIAGNOSIS, (#.72) OTHER [...] automatically d ocumented from SURGERY package case #[id number] Field (#34) PRINCIPAL POST-OP DIAG, (#.74) OTHER [...] Label: Lucas Meek Paperwork: Lucas Meek Cassette: [id number];..;KALYANI;.;405;[phone] Specimen is labeled: ES bx Received in formalin are several pieces of pale boyd and brown tissue, 1.2 x 0.7 cm in aggregate. Submitted entirely in 1 cassette [id number];..;KALYANI;.;405;[id number] SAW 12/15/2021 Microscopic exam: DIAGNOSIS: A. 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 Kendell long. TIARA Coombs was notified on 12/21/21. The attending pathologist who signature mansoor ears on this report has reviewed all diagnostic slides and has edited t he gross and/or microscopic portion of this report in rendering the final pathologic diagnosis. [address] [address] CPT: 63627 /emely/ NIURKA Yeung MD Signed Dec 21, 2021@11:46 Performing Laboratory: Surgical Pathology Report Performed By: [facility] [CLIA# [id number]] [address] [place] [address] $FTR - - - - - [...] - - LUCAS MEEK STANDARD FORM 515 ID:[id number] SEX:M :1950 AGE: 71 LOC: SDM END PCP: Isatu Todd /emely/ NIURKA MILLER Staff Signed: 12/21/2021 11:46 Dec 06, 2021 03:30 PM LR MICROBIOLOGY [facility]: [facility] Reporting Lab: [facility] [CLIA# [id number]] [address] [place] [address] Accession [UID]: [id number] [[id number]] Receiv ed: Dec 06, 2021@16:14 Collection sample: BLOOD CUL T BOTTLE(NIRMAL/AERO)Collection date: Dec 06, 2021 15:30 Site/Specimen: BLOOD Provider: JELANI SÁNCHEZ Comment on specimen: LAC Test(s) ordered: BLOOD CULTURE ANAEROBI C....... completed: Dec 12, 2021 06:18 * BACTERIOLOGY FINAL REPORT => Dec 12, 2021 06:1 8 TECH CODE: [id number] Bacteriology Remark(s): NO GROWTH IN 5 DAYS =--=--=--=--=--=--=--=--=--=--=--=--=--= --=--=--=--=--=--=--=--=--=--=--=--=-- Performing Laboratory: Bacteriology Report Performed By: [facility] [CLIA# [id number]] [address] [place] [address] Dec 06, 2021 03:30 PM LR MICROBIOLOGY REPORT: [facility] Reporting Lab: [facility] [CLIA# [id number]] [address] [place] [address] Accession [UID]: [id number] [[id number]] Receiv ed: Dec 06, 2021@16:14 Collection sample: BLOOD CUL T BOTTLE(NIRMAL/AERO)Collection date: Dec 06, 2021 15:30 Site/Specimen: BLOOD Provider: JELANI SÁNCHEZ Comment on specimen: LAC Test(s) ordered: BLOOD CULTURE AEROBIC. ........ completed: Dec 12, 2021 06:17 * BACTERIOLOGY FINAL REPORT => Dec 12, 2021 06:1 7 TECH CODE: [id number] Bacteriology Remark(s): NO GROWTH IN 5 DAYS =--=--=--=--=--=--=--=--=--=--=--=--=--= --=--=--=--=--=--=--=--=--=--=--=--=-- Performing Laboratory: Bacteriology Report Performed By: [facility] [CLIA# [id number]] [address] [place] [address] Encounter Notes: All associated encounter notes This section contains the clinical notes associated to the Encounter. Date/Time Encounter Note(s) Provider Source Dec 22, 2021 12:49 PM PALLIATIVE CARE NURSING NOTE: IRVIN MELÉNDEZ LOCAL TITLE: PALLIATIVE CARE CROSSING GUARD NOTE [facility] STANDARD TITLE: PALLIATIVE CARE NURSING NOTE DATE OF NOTE: DEC 22, 2021@12:49 ENTRY DATE: DEC 22, 2021@12:49:46 AUTHOR: TIERRA MELÉNDEZ EXP COSIGNER: URGENCY: STATUS: COMPLETED This RNCM called patient ([phone]) [facility] to check in regarding current status and outpatient palliative care follow-up. Left M with this CM's name, number and request for call back. /emely/ TIERRA MELÉNDEZ Registered Nurse, CCM Signed: 12/22/2021 12:52
--- OUTSIDE RECORDS SUMMARY | 2022-01-19 08:12 | XMS_ITS | Encounter Summary ---
:1950 Author Organization [facility] Address [address] [place] [id number] Support Name Relationship Address Phone YUSRA MEEK Unavailable [address] [place] [address] YUSRA MEEK Unavailable [address] [place] [address] CLAY MOSLEY Unavailable Unavailable SJ SANTACRUZ Unavailable [...] MEDICARE MEDICARE PART Jun 18, PART A [id number] DO KALYANI PATIENT (WNR) (M) A 2016 13A 1 UGLAS MEDICARE MEDICARE PART Jun 18, PART B [id number] DO KALYANI PATIENT (WNR) (M) B 2016 13A 1 LAS MEDICARE MEDICARE PART Jun 18, PART A [id number] DO KALYANI PATIENT (WNR) (M) A 2017 VH81 2 LAS MEDICARE MEDICARE PART Jun 18, PART B [id number] DO KALYANI PATIENT (WNR) (M) B 2017 VH81 2 UGLAS UNITED MEDICARE MCR(Jun 18 [id number] Luz MEEK PATIENT HEALTHCARE ADVANTAGE NR) 2021 37 0 LAS [facility] (WNR) Selected Encounter This section includes the information on record at [place] for the Encounter. Date/Time Encounter Type Encounter Description Reason Provider Source Dec 22, 2021 06:34 Outpatient Encounter PRIMARY CARE/MEDICINE PM IHE Encounter Template Text not used by [place] Plan of Treatment: Future Appointments (+ 6 [...] - [place] [facility] Jan 10, 2022 11:30 AM AMBULATORY - MEDICINE [facility] Jan 24, 2022 08:00 AM [place] [facility] Feb 21, 2022 10:00 AM [place] [facility] Mar 21, 2022 10:30 AM AMBULATORY - [...] the Encounter. The data comes from all [place] treatment [facility]. Test Date/Time Test Type Test Details Facility Name November 15, 2021 10:[address] [facility] CARE-PODIATRY Cons [employer] Manager's Choice Dec 06, 2021 12:52 PM Pharmacy - [place] Infusion Order [facility] Dec 06, 2021 03:24 PM Pharmacy [place] [facility] Dec 06, 2021 03:40 PM Pharmacy [place] [facility] Dec 15, 2021 08:41 AM Consult Order SPEECH PATHOLOGY [place] OUTPATIENT Cons [facility] Homeowner Association Manager's Choice Jan 15, 2022 10:[address] [facility] CARE-PALLIATIVE CARE Cons [employer] Manager's Choice Lab Results: +/- 30 days [...] GLU,BUN,CREAT,LYTES,CA Speci men Type: PLASMA 06:43 AM [facility] Comment: Tests performed on [employer] (405) SN:[id number] Ordering Provid er: ISATU TODD Report Released Date/Time: Dec 11, 2021 07:42 AM Reporting Lab: [facility] [address] [facility] [address] Performing Lab: [facility] [address] [facility] [address] UREA NITROGEN 9 7-25 SODIUM 137 135-145 POTASSIUM 3.8 3.5-5.0 CHLORIDE 105 100-110 CARBON DIOXIDE 26 20-30 ANION GAP 6 4-16 GLUCOSE 102 H 65-100 CREATININE 0.64 0.5-1.5 CALCIUM 8.1 L 8.5-10.5 eGFR(CKD-EPI 2020) >90.0 >60 Dec 15, 2021 06:43 AM [facility] CBC PROFILE Sp ecimen Type: BLOOD No comment enter ed. Ordering Provid er: ISATU TODD Report Released Date/Time: Dec 10, 2021 07:22 AM Reporting Lab: [facility] [address] [facility] [address] Performing Lab: [facility] [address] [facility] [address] WBC 5.7 4.5-11.0 RBC 4.22 L 4.23-5.66 [...] CYTOGENETIC Specimen Type: ESOPHAGUS 02:59 PM [facility] FISH([facility]) Comment: ~For T est: CYTOGENETIC FISH([facility]) ~FISH HER 2 NUE, FFPE See full report in myfab5 Image display viewer/tab#LAB-Reference Ordering Provid er: NIURKA MILLER Report Released Date/Time: Dec 21, 2021 12:11 PM Reporting Lab: [facility] [address] [facility] [address] Performing Lab: [facility] CYTOGENETIC FISH([facility]) comment Dec 14, 2021 [facility] P4 GLU,BUN,CREAT,LYTES,CA Speci men Type: PLASMA 06:27 AM [facility] Comment: Tests performed on [employer] (405) SN:[id number] Ordering Provid er: ISATU TODD Report Released Date/Time: Dec 11, 2021 07:42 AM Reporting Lab: [facility] [address] [facility] [address] Performing Lab: [facility] [address] [facility] [address] UREA NITROGEN 10 7-25 SODIUM 137 135-145 POTASSIUM 4.0 3.5-5.0 CHLORIDE 104 100-110 CARBON DIOXIDE 25 20-30 ANION GAP 8 4-16 GLUCOSE 99 65-100 CREATININE 0.67 0.5-1.5 CALCIUM 8.2 L 8.5-10.5 eGFR(CKD-EPI 2020) >90.0 >60 Dec 14, 2021 06:27 AM [facility] CBC PROFILE Sp ecimen Type: BLOOD No comment enter ed. Ordering Provid er: ISATU TODD Report Released Date/Time: Dec 10, 2021 07:22 AM Reporting Lab: [facility] [address] [facility] [address] Performing Lab: [facility] [address] [facility] [address] WBC 6.0 4.5-11.0 RBC 4.29 4.23-5.66 HGB [...] 0.00 0-0 Dec 13, 2021 06:34 AM [facility] CBC PROFILE Sp ecimen Type: BLOOD No comment enter ed. Ordering Provid er: ISATU TODD Report Released Date/Time: Dec 10, 2021 07:22 AM Reporting Lab: [facility] [address] [facility] [address] Performing Lab: [facility] [address] [facility] [address] WBC 5.6 4.5-11.0 RBC 4.28 4.23-5.66 HGB [...] ABSOLUTE NRBC 0.00 0-0 Dec 13, 2021 [facility] P4 GLU,BUN,CREAT,LYTES,CA Speci men Type: PLASMA 06:34 AM [facility] Comment: Tests performed on [employer] (405) SN:[id number] Ordering Provid er: ISATU TODD Report Released Date/Time: Dec 11, 2021 07:42 AM Reporting Lab: [facility] [address] [facility] [address] Performing Lab: [facility] [address] [facility] [address] UREA NITROGEN 12 7-25 SODIUM 136 135-145 POTASSIUM 3.9 3.5-5.0 CHLORIDE 105 100-110 CARBON DIOXIDE 24 20-30 ANION GAP 7 4-16 GLUCOSE 102 H 65-100 CREATININE 0.66 0.5-1.5 CALCIUM 8.3 L 8.5-10.5 eGFR(CKD-EPI 2020) >90.0 >60 Dec 12, 2021 [facility] P4 GLU,BUN,CREAT,LYTES,CA Speci men Type: PLASMA 06:21 AM [facility] Comment: Tests performed on [employer] (405) SN:[id number] Ordering Provid er: ISATU TODD Report Released Date/Time: Dec 11, 2021 07:42 AM Reporting Lab: [facility] [address] [facility] [address] Performing Lab: [facility] [address] [facility] [address] UREA NITROGEN 11 7-25 SODIUM 139 135-145 POTASSIUM 4.1 3.5-5.0 CHLORIDE 107 100-110 CARBON DIOXIDE 24 20-30 ANION GAP 8 4-16 GLUCOSE 110 H 65-100 CREATININE 0.70 0.5-1.5 CALCIUM 8.3 L 8.5-10.5 eGFR(CKD-EPI 2020) >90.0 >60 Dec 12, 2021 06:21 AM [facility] CBC PROFILE Sp ecimen Type: BLOOD No comment enter ed. Ordering Provid er: ISATU TODD Report Released Date/Time: Dec 10, 2021 07:22 AM Reporting Lab: [facility] [address] [facility] [address] Performing Lab: [facility] [address] [facility] [address] WBC 5.5 4.5-11.0 RBC 4.37 4.23-5.66 HGB [...] Type: PLASMA Comment: Testin g Performed on [employer] (405) SN:[id number] Ordering Provid er: ISATU TODD Report Released Date/Time: Dec 12, 2021 08:24 AM Reporting Lab: [place] [facility] [address] [facility] [address] Performing Lab: [place] [facility] [address] [facility] [address] MAGNESIUM 1.8 1.6-2.6 Dec 12, 2021 06:00 AM [place] [facility] PHOSPHORUS Sp ecimen Type: PLASMA Comment: Testin g Performed on [employer] (405) SN:[id number] Ordering Provid er: ISATU TODD Report Released Date/Time: Dec 12, 2021 08:24 AM Reporting Lab: [place] [facility] [address] [facility] [address] Performing Lab: [place] [facility] [address] [facility] [address] PHOSPHORUS 3.1 2.5-5.0 Dec 11, 2021 06:15 AM [place] [facility] ELECTROLYTES Sp ecimen Type: PLASMA Comment: Tests performed on [employer] (405) SN:[id number] Ordering Provid er: ISATU TODD Report Released Date/Time: Dec 10, 2021 07:22 AM Reporting Lab: [place] [facility] [address] [facility] [address] Performing Lab: [place] [facility] [address] [facility] [address] SODIUM 137 135-145 POTASSIUM 4.3 3.5-5.0 CHLORIDE 108 100-110 CARBON DIOXIDE 20 20-30 ANION GAP 9 4-16 Dec 11, 2021 06:15 AM [place] [facility] CBC PROFILE Sp ecimen Type: BLOOD Comment: Result s checked Ordering Provid er: ISATU TODD Report Released Date/Time: Dec 10, 2021 07:22 AM Reporting Lab: [place] [facility] [address] [facility] [address] Performing Lab: [place] [facility] [address] [facility] [address] WBC 5.8 4.5-11.0 RBC 4.37 4.23-5.66 HGB [...] 0.00 0-0 Dec 11, 2021 06:00 AM [place] [facility] PHOSPHORUS Sp ecimen Type: PLASMA Comment: Tests performed on [employer] (405) SN:[id number] Results checked Ordering Provid er: ISATU TODD Report Released Date/Time: Dec 11, 2021 07:44 AM Reporting Lab: [place] [facility] [address] [facility] [address] Performing Lab: [place] [facility] [address] [facility] PHOSPHORUS 3.0 2.5-5.0 Dec 10, 2021 08:05 AM [facility] MAGNESIUM Sp ecimen Type: PLASMA Comment: [place] [id number] on Dec 10, 2021@08:31 Tests performed on [employer] (405) SN:[id number] Ordering Provid er: ISATU TODD Report Released Date/Time: Dec 10, 2021 07:22 AM Reporting Lab: [place] [facility] [address] [place] [facility] [facility] [place] [address] Performing Lab: [place] [facility] [address] [place] [facility] [place] [address] MAGNESIUM 1.7 1.6-2.6 Dec 10, 2021 08:05 AM [place] [facility] PHOSPHORUS Sp ecimen Type: PLASMA Comment: [place] [id number] on Dec 10, 2021@08:31 Tests performed on [employer] (405) SN:[id number] Ordering Provid er: ISATU TODD Report Released Date/Time: Dec 10, 2021 07:22 AM Reporting Lab: [place] [facility] [address] [place] [facility] [place] [address] Performing Lab: [place] [facility] [address] [place] [facility] [place] [address] PHOSPHORUS 1.8 L 2.5-5.0 Dec 10, 2021 08:05 AM [place] UREA NITROGEN Specimen Type: PLASMA [facility] Comment: [place] [id number] on Dec 10, 2021@08:31 Tests performed on [employer] (405) SN:[id number] Ordering Provid er: ISATU TODD Report Released Date/Time: Dec 10, 2021 07:22 AM Reporting Lab: [place] [facility] [address] [place] [facility] [place] [address] Performing Lab: [place] [facility] [address] [place] [facility] [place] [address] UREA NITROGEN 8 7-25 Dec 10, 2021 08:05 AM [place] [facility] GLUCOSE Sp ecimen Type: PLASMA Comment: [place] [id number] on Dec 10, 2021@08:31 Tests performed on [employer] (405) SN:[id number] Ordering Provid er: ISATU TODD Report Released Date/Time: Dec 10, 2021 07:22 AM Reporting Lab: [place] [facility] [address] [place] [facility] [facility] [place] [address] Performing Lab: [place] [facility] [address] [place] [facility] [place] [address] GLUCOSE 144 H 65-100 Dec 10, 2021 08:05 AM [place] [facility] CALCIUM Sp ecimen Type: PLASMA Comment: [place] [id number] on Dec 10, 2021@08:31 Tests performed on [employer] (405) SN:[id number] Ordering Provid er: ISATU TODD Report Released Date/Time: Dec 10, 2021 07:22 AM Reporting Lab: [place] [facility] [address] [facility] [address] Performing Lab: [place] [facility] [address] [facility] [address] CALCIUM 8.3 L 8.5-10.5 Dec 10, 2021 08:05 AM [place] [facility] ELECTROLYTES Sp ecimen Type: PLASMA Comment: [place] [id number] on Dec 10, 2021@08:31 Tests performed on [employer] (405) SN:[id number] Ordering Provid er: ISATU TODD Report Released Date/Time: Dec 10, 2021 07:22 AM Reporting Lab: [place] [facility] [address] [place] [facility] [place] [address] Performing Lab: [place] [facility] [address] [place] [facility] [place] [address] SODIUM 139 135-145 POTASSIUM 3.7 3.5-5.0 CHLORIDE 107 100-110 CARBON DIOXIDE 24 20-30 ANION GAP 8 4-16 Dec 10, 2021 08:05 [place] CREATININE WITH eGFR Specime n Type: PLASMA AM [facility] PANEL Comment: [place] [id number] on Dec 10, 2021@08:31 Tests performed on [employer] (405) SN:[id number] Ordering Provid er: ISATU TODD Report Released Date/Time: Dec 10, 2021 07:22 AM Reporting Lab: [place] [facility] [address] [place] [facility] [place] [address] Performing Lab: [place] [facility] [address] [place] [facility] [place] [address] CREATININE 0.78 0.5-1.5 eGFR(CKD-EPI 2020) >90.0 >60 Dec 10, 2021 08:05 AM [place] [facility] CBC PROFILE Sp ecimen Type: BLOOD No comment enter ed. Ordering Provid er: ISATU TODD Report Released Date/Time: Dec 10, 2021 07:22 AM Reporting Lab: [facility] [address] [facility] Performing Lab: [facility] [address] [facility] WBC 7.0 4.5-11.0 RBC 4.54 4.23-5.66 [...] 0.00 0-0 Dec 09, 2021 06:46 AM [facility] MAGNESIUM Sp ecimen Type: PLASMA Comment: Tests performed on [employer] (405) SN:[id number] Ordering Provid er: ISATU TODD Report Released Date/Time: Dec 08, 2021 10:23 AM Reporting Lab: [facility] [address] [facility] [address] Performing Lab: [facility] [address] [facility] [address] MAGNESIUM 1.6 1.6-2.6 Dec 09, 2021 [facility] P4 GLU,BUN,CREAT,LYTES,CA Speci men Type: PLASMA 06:46 AM [facility] Comment: Tests performed on [employer] (405) SN:[id number] Ordering Provid er: ISATU TODD Report Released Date/Time: Dec 08, 2021 05:00 PM Reporting Lab: [facility] [address] [facility] [address] Performing Lab: [facility] [address] [facility] [address] UREA NITROGEN 6 L 7-25 SODIUM 134 L 135-145 POTASSIUM 3.7 3.5-5.0 CHLORIDE 103 100-110 CARBON DIOXIDE 23 20-30 ANION GAP 8 4-16 GLUCOSE 112 H 65-100 CREATININE 0.70 0.5-1.5 CALCIUM 8.1 L 8.5-10.5 eGFR(CKD-EPI 2020) >90.0 >60 Dec 09, 2021 06:46 AM [facility] CBC PROFILE Sp ecimen Type: BLOOD No comment enter ed. Ordering Provid er: ISATU TODD Report Released Date/Time: Dec 08, 2021 05:00 PM Reporting [facility] [address] [facility] [address] Performing Lab: [facility] [address] [facility] [address] WBC 7.1 4.5-11.0 RBC 4.40 4.23-5.66 HGB [...] 0-0 Dec 08, 2021 06:39 AM [facility] MAGNESIUM Sp ecimen Type: PLASMA Comment: Testin g Performed on [employer] (405) SN:[id number] Ordering Provid er: ISATU TODD Report Released Date/Time: Dec 07, 2021 10:32 AM Reporting Lab: [facility] [address] [facility] [address] Performing Lab: [facility] [address] [facility] [address] MAGNESIUM 1.5 L 1.6-2.6 Dec 08, 2021 06:39 AM [facility] CBC PROFILE Sp ecimen Type: BLOOD No comment enter ed. Ordering Provid er: ISATU TODD Report Released Date/Time: Dec 07, 2021 10:32 AM Reporting Lab: [facility] [address] [facility] [address] Performing Lab: [facility] [address] [facility] [address] WBC 8.4 4.5-11.0 RBC 4.75 4.23-5.66 HGB [...] ABSOLUTE NRBC 0.00 0-0 Dec 08, 2021 [facility] P[facility] GLU,BUN,CREAT,LYTES,CA Speci men Type: PLASMA 06:39 AM [facility] Comment: Testin g Performed on [employer] (405) SN:[id number] Ordering Provid er: ISATU TODD Report Released Date/Time: Dec 07, 2021 10:32 AM Reporting Lab: [facility] [address] [facility] [address] Performing Lab: [facility] [address] [facility] [address] UREA NITROGEN 6 L 7-25 SODIUM 136 135-145 POTASSIUM 3.3 L 3.5-5.0 CHLORIDE 104 100-110 CARBON DIOXIDE 22 20-30 ANION GAP 10 4-16 GLUCOSE 133 H 65-100 CREATININE 0.76 0.5-1.5 CALCIUM 8.4 L 8.5-10.5 eGFR(CKD-EPI 2020) >90.0 >60 Dec 07, 2021 [facility] P4 GLU,BUN,CREAT,LYTES,CA Speci men Type: PLASMA 06:42 AM [facility] Comment: Tests performed on [employer] (405) SN:[id number] Ordering Provid er: PORFIRIO WALTERS Report Released Date/Time: Dec 06, 2021 06:57 PM Reporting Lab: [facility] [address] [facility] [address] Performing Lab: [place] [facility] [address] [facility] [address] UREA NITROGEN 9 7-25 SODIUM 135 135-145 POTASSIUM 3.5 3.5-5.0 CHLORIDE 103 100-110 CARBON DIOXIDE 22 20-30 ANION GAP 10 4-16 GLUCOSE 92 65-100 CREATININE 0.73 0.5-1.5 CALCIUM 8.0 L 8.5-10.5 eGFR(CKD-EPI 2020) >90.0 >60 Dec 07, 2021 06:42 [facility] PROFILE Specimen Typ e: PLASMA AM [facility] Comment: Tests performed on [employer] (405 SN:[id number] Ordering Provid er: PORFIRIO WALTERS Report Released Date/Time: Dec 06, 2021 06:57 PM Reporting Lab: [facility] [address] [facility] [address] Performing Lab: [facility] [address] [facility] [address] PROTEIN, TOTAL 5.7 L 6.0-8.5 ALBUMIN 2.4 L 3.2-5.0 BILIRUBIN, TOTAL 0.4 0.2-1.2 ALKALINE PHOSPHATASE 109 40-150 ALT(SGPT) 10 7-52 AST(SGOT) 15 5-34 FIB-4 SCORE 1.92 <2.67 Dec 07, 2021 06:42 AM [facility] CBC PROFILE Specimen Type: BLOOD [facility] No comment enter ed. Ordering Provid er: PORFIRIO WALTERS Report Released Date/Time: Dec 06, 2021 06:57 PM Reporting Lab: [facility] [address] [facility] [address] Performing Lab: [facility] [address] [facility] [address] WBC 5.7 4.5-11.0 RBC 4.15 L 4.23-5.66 [...] [facility] %) AUTOMATED Comment: Tests performed on [employer] (405) SN:[id number] Ordering Provid er: ISATU TODD Report Released Date/Time: Dec 07, 2021 10:28 AM Reporting Lab: [place] [facility] [address] [facility] [address] Performing Lab: [place] [facility] [address] [facility] [address] RETICULOCYTES (%) AUTOMATED 1.23 0. 6-2.0 RETICULOCYTES (ABS) AUTOMATED 0.052 0.030-0.090 Dec 06, 2021 09:45 [place] MRSA SURVL NARES Specimen Ty pe: NARES PM [facility] DNA No comment enter ed. Ordering Provid er: ALVARO VARGHESE Report Released Date/Time: Dec 07, 2021 02:20 AM Reporting Lab: [place] [facility] [address] [facility] [address] Performing Lab: [place] [facility] [address] [facility] [address] MRSA SURVL NARES DNA NEGATIVE NEGATIVE Dec 06, 2021 06:00 [place] URINALYSIS W/REFLEX TO Speci men Type: URINE PM [facility] CULTURE No comment enter ed. Ordering Provid er: JELANI SÁNCHEZ Report Released Date/Time: Dec 06, 2021 11:57 AM Reporting Lab: [place] [facility] [address] [facility] [address] Performing Lab: [place] [facility] [address] [facility] [address] URINE COLOR Arlin YELLOW SPECIFIC GRAVITY 1.029 [...] NEG NEG WBC SCREEN NEG NEG Tom [facility] SARS-COV-2 Specimen Type: NASOPHARYNX 21, RIVER VARIANT Comment: https://www.cdc.gov/coronavirus/2019-ncov/cases-updates/variant- surveillance/variant-info.html The [employer] PharmaiSeq SARS CoV 2 [employer] Research Assay-GX is a next-generation sequencing (NGS) assa 2021 [facility] SEQUENCING y that determine s the complete genome sequence of the SARS-CoV-2 virus. The assay contains variant-tolerant primers to broaden and improve the coverage for variant detection and increase the sensitivity 12:00 [facility] PNL() of the panel to enable detection from lower viral titer samples. The assay is run on the [employer] Sequencer, which performs automated library preparation, sequencing, analysis, and reporting. PM The sequence an alysis includes determination of viral phylogenetic lineage by comparison to the reference strain Wuhan-Hu-1, GenBank: [id number]. Sequence determination may not be possible owing [...] and its performance characteristics determined by the [facility] Molecular [facility]ostics Laboratory, which is certified under the Clinical Laboratory Improveme nt Amendments (C MARCO) as qualified to perform high complexity clinical laboratory testing. This test is validated for clinical use at [facility] and should not be regarded as investigational or for research. The FDA does not require this test to go through premarket FDA review, and therefore it has not been cleared or approved by the FDA. This report was reviewed and approved by the on-service pathologist. Ordering Provid er: JELANI SÁNCHEZ Report Released Date/Time: Dec 06, 2021 01:13 PM Reporting Lab: [facility] [address] [facility] [address] Performing Lab: [facility] [address] [place] [address] SARS-CoV-2 CLADE() 22C (OMICRON) SARS-CoV-2 LINEAGE() BA.2.12.1 Dec 06, 2021 12:00 [facility] COVID-19 AG SCREEN Specimen Type: NASAL CAVITY PM [facility] PANEL BINAX(405) Comment: Testi ng Performed By: Mike Briscoe Ordering Provid er: JELANI SÁNCHEZ Report Released Date/Time: Dec 08, 2021 08:23 AM Reporting Lab: [place] [facility] [address] [facility] [address] Performing Lab: [facility] [address] [facility] [address] COVID-19 AG SCRN(j BINAX) POSITIVE HH NE G Dec 06, 2021 12:00 PM [facility] TROPONIN II Sp ecimen Type: PLASMA Comment: Tests performed on [employer] (405) SN:[id number] Ordering Provid er: JELANI SÁNCHEZ Report Released Date/Time: Dec 06, 2021 11:57 AM Reporting Lab: [place] [facility] [address] [place] [facility] [place] [address] Performing Lab: [facility] [address] [place] [facility] [place] [address] TROPONIN II 0.03 0.00-0.29 Dec 06, 2021 12:00 PM [facility] LIVER PROFILE Sp ecimen Type: PLASMA Comment: Testin g Performed on [employer] (405) SN:[id number] Ordering Provid er: JELANI SÁNCHEZ Report Released Date/Time: Dec 06, 2021 11:57 AM Reporting Lab: [place] [facility] [address] [place] [facility] [place] [address] Performing Lab: [facility] [address] [place] [facility] [place] [address] PROTEIN, TOTAL 6.6 6.0-8.5 ALBUMIN 2.8 L 3.2-5.0 BILIRUBIN, TOTAL 0.6 0.2-1.2 ALKALINE PHOSPHATASE 134 40-150 ALT(SGPT) 13 7-52 AST(SGOT) 18 5-34 FIB-4 SCORE 1.94 <2.67 Dec 06, 2021 [facility] GLU,BUN,CREAT,LYTES,CA Speci men Type: PLASMA 12:00 PM [facility] Comment: Testin g Performed on [employer]ester (405) [id number] Ordering Provid er: JELANI SÁNCHEZ Report Released Date/Time: Dec 06, 2021 11:57 AM Reporting [facility] [address] [facility] [address] Performing [facility]: [facility] [address] [facility] [address] UREA NITROGEN 13 7-25 SODIUM 138 135-145 POTASSIUM 3.8 3.5-5.0 CHLORIDE 103 100-110 CARBON DIOXIDE 23 20-30 ANION GAP 12 4-16 GLUCOSE 105 H 65-100 CREATININE 0.90 0.5-1.5 CALCIUM 8.7 8.5-10.5 eGFR(CKD-EPI 2020) >90.0 >60 Dec 06, 2021 [facility] COVID-[facility]+FLU/RSV DIAGNOSTIC Spe cimen Type: NASOPHARYNX 12:00 PM [facility] PANEL(405) Comment: Tests performed on [employer] Gen[employer]pert (405) Critical results called to and read back by: ALESHIA WILKINSON RN 12/06/21 @ 1312 Ordering Provid er: JELANI SÁNCHEZ Report Released Date/Time: Dec 06, 2021 11:57 AM Reporting [facility]: [facility] [address] [facility] [address] Performing Lab: [facility] [address] [facility] [address] FLU A(PCR) NEGATIVE NEGATIVE FLU B(PCR) NEGATIVE NEGATIVE RSV(PCR) NEGATIVE NEGATIVE COVID-19(AOM-kem-GZXBLCKGO) DETECTED HH NO T DETECTED Dec 06, 2021 12:00 PM [facility] B[facility](P[facility] Sp ecimen Type: PLASMA Comment: Tests performed on [employer] Instrument Tester (405) [id number] Ordering Provid er: JELANI SÁNCHEZ Report Released Date/Time: Dec 06, 2021 11:57 AM Reporting Lab: [facility] [address] [facility] [address] Performing Lab: [facility] [address] [facility] [address] BNP(P) 224.8 H 10-100 Dec 06, 2021 12:00 PM [facility] CBC PROFILE Sp ecimen Type: BLOOD No comment enter ed. Ordering Provid er: JELANI SÁNCHEZ Report Released Date/Time: Dec 06, 2021 11:57 AM Reporting Lab: [facility] [address] [facility] [address] Performing Lab: [facility] [address] [facility] [address] WBC 7.2 4.5-11.0 RBC 4.86 4.23-5.66 HGB [...] AM QUIT TOBACCO USE 1-7 YEARS AGO [facility] quit mar 2016 Tobacco Use History This section includes a history of the smoking, or tobacco- related health factors, that were collected on or before the date of the Encounter. The data comes from the [place] facility where the Encounter took place. Date/Time Smoking Status/Tobacco Use Comment Subhash [email or web address] Nov 21, 2016 08:42 AM QUIT TOBACCO USE 1-7 YEARS AGO [facility] apr 17 1916 Radiology Reports: +/- 30 [...] the Encounter. The data comes from all [place] treatment facilities. Date/Time Radiology Report Provider Source Dec 13, 2021 12:57 PM MRI ABDOMEN W/WO CONTRAST: MARYELLEN LONG [facility] LUCAS MEEK N [id number] -1950 [facility] Exm Date: DEC 13, 2021@12:57 Req Phys: ISATU TODD Loc: OP Unknown/0 12-15-2021@13:20 Img Loc: MRI IMAGING (OOS) Service: [facility]ZGENERAL MEDICINE (Case [id number] COMPLETE) MRI ABDOMEN W/WO CONTRAST (M [place] Detailed) CPT:50176 Reason for Study: further characterization of a [...] new lyphadenopathy REQUESTING MD: Isatu Todd PAGER: [phone] PHONE: [phone] Weight: 232.2 lb [105.32 kg] (12/12/2021 05:00) [...] patient will need to arrange for a tractor driver to take him/her home after the [...] 15, 2021 Date Verified: DEC 15, 2021 Medical Information Officer E-Sig:/ES/MARYELLEN LONG Report: MRI ABDOMEN W/WO CONTRAST [...] MALIGNANCY Primary Interpreting Staff: MARYELLEN LONG Staff (Medical Information Officer) / Dec 10, 2021 09:[address] ABDOMEN & PELVIS: [facility]TSIDE [facility] LUCAS MEEK N [id number] -1950 M SERVICE [facility] Ex Date: DEC 10, 2021@09:30 Req Phys: ISATU TODD Loc: 1S MED/12-10@10:57 Img Loc: CT SCAN (OOS) Service: [facility] MEDICINE (Case [id number] COMPLETE) CT ABD & PELVIS WITHOUT CONT RAST (CT Detailed) CPT:51277 Reason for Study: 71 yo male with [...] RADIOLOGY [phone] to speak to the appropriate utility locate technician. Report Status: Verified Date Reported: DEC 10, 2021 Date Verified: DEC 10, 2021 Medical Information Officer E-Sig: Report: EXAM: CT abdomen and pelvis [...] ph nodes. READING PHYSICIAN: Ramone Munoz D.O. [phone] 12/10/2021 10:55 EDT [facility] National Teleradiology Program [phone] (For Medical Practitioner Use Only ) [address] [facility], [facility] [address], [address] [place] [address] Attention Patients / Veterans: If you have ques tions or concerns about these test results, please contact [facility] or primary care team. Primary Diagnostic Code: SIGNIFICANT ABNORMALIT Y, ATTN NEEDED Primary Interpreting Staff: RADIOLOGY,OUTSIDE SERVICE, Staff Physician / Dec 09, 2021 07:34 AM BASW (MODIFIED): JESSIE CHENEY [facility] LUCAS MEEK N [id number] -1950 [facility] Exm Date: DEC 09, 2021@07:34 Req Phys: ISATU TODD Pat Loc: 1S MED/12-09@11:26 Img Loc: XRAY (OOS) Service: [facility] (Case [id number] COMPLETE) BASW (MODIFIED) (RAD Detaile d) CPT:48706 Contrast Media : Barium Reason for Study: dysphagia ?esophageal spasm Clinical History: Report Status: Verified Date Reported: DEC 09, 2021 Date Verified: DEC 09, 2021 Medical Information Officer E-Sig:/ES/JESSIE CHENEY Report: BASW (MODIFIED) , 12/09/2021 [...] REQUIRED Primary Interpreting Staff: JESSIE CHENEY, RADIOLOGIST (Medical Information Officer) /TLC Dec 06, 2021 12:[address] CHEST (INCLUDES ADRENALS): JESSIE CHENEY [place] MEEKLUCAS N [id number] -1950 [facility] Exm Date: DEC 06, 2021@12:59 Req Phys: JELANI SÁNCHEZ Pat Loc: [facility] ED DAYS M 1RD (Req'g Loc) Img Loc: CT SCAN (OOS) Service: Unknown (Case [id number] COMPLETE) CT THORAX W/O CONT (CT Detai led) CPT:15630 Reason for Study: Opacification right chest Clinical History: No contrast allergy BUN: 13 (12/06/21 12:00) CREATI: 0.90 (12/06/21 12:00) eGFR 05/16/21 09:43 52 L Weight: 232.6 lb [105.51 kg] (12/06/2021 11:40) BODY MASS INDEX - NO HEIGHTS FOUND Pager number: [phone] STAT orders MUST be called t o RADIOLOGY [phone] to speak to the appropriate utility locate technician. Indications - Other: Opacification right chest, covid positive, lung cancer histo Report Status: Verified Date Reported: DEC 06, 2021 Date Verified: DEC 06, 2021 Medical Information Officer E-Sig:/ES/JESSIE CHENEY Report: CT THORAX W/O CONT [...] REQUIRED Primary Interpreting Staff: JESSIE CHENEY, RADIOLOGIST (Medical Information Officer) Primary Interpreting Resident: PRINCE CHAMPION, Resident /BR Dec 06, 2021 11:58 AM CHEST SINGLE VIEW: JESSIE CHENEY LUCAS MEEK N [id number] -1950 [facility] Exm Date: DEC 06, 2021@11:58 Req Phys: JELANI SÁNCHEZ Pat Loc: [facility] ED DAYS M 1RD (Req'g Loc) Img Loc: XRAY (OOS) Service: Unknown (Case [id number] COMPLETE) CHEST SINGLE VIEW (RAD Detai led) CPT:16934 Proc Modifiers : PORTABLE EXAM Reason for Study: SOB, home covid test positive Clinical History: Report Status: Verified Date Reported: DEC 06, 2021 Date Verified: DEC 06, 2021 Medical Information Officer E-Sig:/ES/JESSIE CHENEY Report: Exam type: Chest x-ray [...] REQUIRED Primary Interpreting Staff: JESSIE CHENEY, RADIOLOGIST (Medical Information Officer) /TLC Pathology Reports: +/- 30 days of [...] the Encounter. The data comes from all [place] treatment facilities. Date/Time Pathology Report Provider Source Jan 03, 2022 10:28 AM LR SURGICAL PATHOLOGY REPORT: STEFANY MILLER LOCAL TITLE: LR SURGICAL PATHOLOGY REPORT [facility] STANDARD TITLE: PATHOLOGY REPORT DATE OF NOTE: JAN 03, 2022@10:28:01 ENTRY DATE: JAN 03, 2022@10:28:01 AUTHOR: NIURKA MILLER EXP COSIGNER: URGENCY: STATUS: COMPLETED $APHDR Reporting Lab: CAREY MONTOYA [facility] [CLIA# [id number]] [address] [place] [address] - - - - - - [...] automatically d ocumented from SURGERY package case #[id number] Field (#32) PRINCIPAL PRE-OP DIAGNOSIS, (#.72) OTHER [...] automatically d ocumented from SURGERY package case #[id number] Field (#34) PRINCIPAL POST-OP DIAG, (#.74) OTHER [...] Label: Lucas Meek Paperwork: Lucas Meek Cassette: [id number];..;KALYANI;.;405;[phone] Specimen is labeled: ES bx Received in formalin are several pieces of pale boyd and brown tissue, 1.2 x 0.7 cm in aggregate. Submitted entirely in 1 cassette [id number];..;KALYANI;.;405;[id number] SAW 12/15/2021 Microscopic exam: *+* MODIFIED REPORT [...] report in rendering the final pathologic diagnosis. [address] [address] CPT: 91064 /emely/ NIURKA Yeung MD Signed Jan 03, 2022@10:28 Performing Laboratory: Surgical Pathology Report Performed By: CAREY DOYLE Gorge [facility] [CLIA# [id number]] [address] [place] [address] $FTR - - - - - [...] - - LUCAS MEEK STANDARD FORM 515 ID:[id number] SEX:M :1950 AGE: 71 LOC: SDM END PCP: Isatu Todd /emely/ NIURKA MILLER Staff Signed: 01/03/2022 10:28 Dec 21, 2021 11:46 AM LR SURGICAL PATHOLOGY REPORT: STEFANY MILLER [facility] LOCAL TITLE: LR SURGICAL PATHOLOGY REPORT [facility] STANDARD TITLE: PATHOLOGY REPORT DATE OF NOTE: DEC 21, 2021@11:46:59 ENTRY DATE: DEC 21, 2021@11:46:59 AUTHOR: NIURKA MILLER EXP COSIGNER: URGENCY: STATUS: COMPLETED $APHDR Reporting Lab: [facility] [CLIA# [id number]] [address] [place] [facility] [address] - - - - - - [...] automatically d ocumented from SURGERY package case #[id number] Field (#32) PRINCIPAL PRE-OP DIAGNOSIS, (#.72) OTHER [...] automatically d ocumented from SURGERY package case #[id number] Field (#34) PRINCIPAL POST-OP DIAG, (#.74) OTHER [...] Label: Lucas Meek Paperwork: Lucas Meek Cassette: [id number];..;KALYANI;.;086;[id number] Specimen is labeled: ES bx Received in formalin are several pieces of pale boyd and brown tissue, 1.2 x 0.7 cm in aggregate. Submitted entirely in 1 cassette [id number];..;KALYANI;.;660;[id number] SAW 12/15/2021 Microscopic exam: DIAGNOSIS: A. 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 Kendell long. TIARA Coombs was notified on 12/21/21. The attending pathologist who signature mansoor ears on this report has reviewed all diagnostic slides and has edited t he gross and/or microscopic portion of this report in rendering the final pathologic diagnosis. [address] [address] CPT: 53349 /emely/ NIURKA Yeung MD Signed Dec 21, 2021@11:46 Performing Laboratory: Surgical Pathology Report Performed By: [facility] [CLIA# [id number]] [address] [place] [address] $FTR - - - - - [...] - - LUCAS MEEK STANDARD FORM 515 ID:[id number] SEX:M :1950 AGE: 71 LOC: SDM END PCP: Isatu Todd /emely/ NIURKA Yeung MD Signed: 12/21/2021 11:46 Dec 06, 2021 03:30 PM LR MICROBIOLOGY REPORT: [facility] Reporting Lab: [facility] [CLIA# [id number]] [address] [place] [address] Accession [UID]: [id number] [[id number]] Receiv ed: Dec 06, 2021@16:14 Collection sample: BLOOD CUL T BOTTLE(NIRMAL/AERO)Collection date: Dec 06, 2021 15:30 Site/Specimen: BLOOD Provider: JELANI SÁNCHEZ Comment on specimen: LAC Test(s) ordered: BLOOD CULTURE ANAEROBI C....... completed: Dec 12, 2021 06:18 * BACTERIOLOGY FINAL REPORT => Dec 12, 2021 06:1 8 TECH CODE: 01933 Bacteriology Remark(s): NO GROWTH IN 5 DAYS =--=--=--=--=--=--=--=--=--=--=--=--=--= --=--=--=--=--=--=--=--=--=--=--=--=-- Performing Laboratory: Bacteriology Report Performed By: [facility] [CLIA# [id number]] [address] [place] [address] Dec 06, 2021 03:30 PM LR MICROBIOLOGY REPORT: [facility] Reporting Lab: [facility] [CLIA# [id number]] [address] [place] [address] Accession [UID]: [id number] [[id number]] Receiv ed: Dec 06, 2021@16:14 Collection sample: BLOOD CUL T BOTTLE(NIRMAL/AERO)Collection date: Dec 06, 2021 15:30 Site/Specimen: BLOOD Provider: JELANI SÁNCHEZ Comment on specimen: LAC Test(s) ordered: BLOOD CULTURE AEROBIC. ........ completed: Dec 12, 2021 06:17 * BACTERIOLOGY FINAL REPORT => Dec 12, 2021 06:1 7 TECH CODE: 03979 Bacteriology Remark(s): NO GROWTH IN 5 DAYS =--=--=--=--=--=--=--=--=--=--=--=--=--= --=--=--=--=--=--=--=--=--=--=--=--=-- Performing Laboratory: Bacteriology Report Performed By: [facility] [CLIA# [id number]] [address] [place] [address] Encounter Notes: All associated encounter notes This section contains the clinical notes associated to the Encounter. Date/Time Encounter Note(s) Provider Source Dec 22, 2021 06:34 PM PRIMARY CARE ADMINISTRATIVE NOTE: ANAHI IZAGUIRRE [facility] LOCAL TITLE: Administrative Note/Primary [facility] TITLE: PRIMARY CARE ADMINISTRATIVE NOTE DATE OF NOTE: DEC 22, 2021@18:34 ENTRY DATE: DEC 22, 2021@18:34:29 AUTHOR: DIPIKA TINOCO EXP COSIGNER: URGENCY: STATUS: COMPLETED I called patient x3 no answer. I left a voicemail - offered sooner appointment (overbook 12 12/27/21) if int erested. If he calls back, please offer an overbook in my schedule for 12/27/21 at noon.) /emely/ KAITLIN TINOCO MD Staff Physician Signed: 12/22/2021 18:35
--- OUTSIDE RECORDS SUMMARY | 2022-01-19 08:13 | XMS_ITS | Encounter Summary ---
:1950 Author Organization [facility] Address [address] [place] [address] Support Name Relationship Address Phone YUSRA MEEK Unavailable [address] [place] [place] [address] YUSRA MEEK Unavailable [address] [place] [address] CLAY MOSLEY Unavailable Unavailable SJ SANTACRUZ Unavailable [...] MEDICARE MEDICARE PART Jun 18, PART B [id number] DO KALYANI PATIENT (WNR) (M) B 2016 13A 1 UGLAS MEDICARE MEDICARE PART Jun 18, PART A [id number] DO KALYANI PATIENT (WNR) (M) A 2016 13A 1 [place]AS MEDICARE MEDICARE PART Jun 18, PART A [id number] KALYANIDO PATIENT (WNR) (M) A 2017 VH81 2 UGLAS MEDICARE MEDICARE PART Jun 18, PART B [id number] DO KALYANI PATIENT (WNR) (M) B 2017 VH81 2 LAS UNITED MEDICARE MCR(Jun 18 [id number] Luz MEEK PATIENT HEALTHCARE ADVANTAGE NR) 2021 37 0 [facility] (WNR) Selected Encounter This section includes the information on record at [place] for the Encounter. Date/Time Encounter Type Encounter Description Reason Provider Source Dec 23, 2021 01:05 Outpatient Encounter TELEPHONE/ANCILLARY PM IHE Encounter Template Text not used by [place] Plan of Treatment: Future Appointments (+ 6 [...] AMBULATORY - [place] [facility] Mar 21, 2022 10:30 [facility] Active, Pending, and Scheduled [...] the Encounter. The data comes from all [place] treatment [facility]. 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 Jan 15, 2022 10:08 PM Consult Order [facility] CARE-PALLIATIVE CARE Cons Fl[employer] Hel[facility] Choice Lab Results: +/- 30 days of [...] [facility] Comment: Tests performed on TraceSecurity (405) SN:[id number] Ordering Provid er: ISATU TODD Report Released Date/Time: Dec 11, 2021 07:42 AM Reporting Lab: [facility] [address] [facility] [address] Performing Lab: [facility] [address] [facility] [address] UREA NITROGEN 9 7-25 SODIUM 137 135-145 POTASSIUM 3.8 3.5-5.0 CHLORIDE 105 100-110 CARBON DIOXIDE 26 20-30 ANION GAP 6 4-16 GLUCOSE 102 H 65-100 CREATININE 0.64 0.5-1.5 CALCIUM 8.1 L 8.5-10.5 eGFR(CKD-EPI 2020) >90.0 >60 Dec 15, 2021 06:43 AM [facility] Sp ecimen Type: BLOOD No comment enter ed. Ordering Provid er: ISATU TODD Report Released Date/Time: Dec 10, 2021 07:22 AM Reporting Lab: [facility] [address] [facility] [address] Performing Lab: [facility] [address] [facility] [address] WBC 5.7 4.5-11.0 RBC 4.22 L 4.23-5.66 [...] ABSOLUTE NRBC 0.00 0-0 Dec 14, 2021 [facility] CYTOGENETIC Specimen Type: ESOPHAGUS 02:59 PM [facility] FISH([place]) Comment: ~For T est: CYTOGENETIC FISH([place]) ~FISH HER 2 NUE, FFPE See full report in G[employer] Mobile Image display viewer/tab#LAB-Reference Ordering Provid er: NIURKA MILLER Report Released Date/Time: Dec 21, 2021 12:11 PM Reporting Lab: [facility] [address] [facility] [address] Performing Lab: [facility] CYTOGENETIC FISH([place]) comment Dec 14, 2021 [facility] P4 GLU,BUN,CREAT,LYTES,CA Speci men Type: PLASMA 06:27 AM [facility] Comment: Tests performed on TraceSecurity (405) SN:[id number] Ordering Provid er: ISATU TODD Report Released Date/Time: Dec 11, 2021 07:42 AM Reporting Lab: [facility] [address] [facility] [address] Performing Lab: [facility] [address] [facility] [address] UREA NITROGEN 10 7-25 SODIUM 137 135-145 POTASSIUM 4.0 3.5-5.0 CHLORIDE 104 100-110 CARBON DIOXIDE 25 20-30 ANION GAP 8 4-16 GLUCOSE 99 65-100 CREATININE 0.67 0.5-1.5 CALCIUM 8.2 L 8.5-10.5 eGFR(CKD-EPI 2020) >90.0 >60 Dec 14, 2021 06:27 AM [facility] CBC PROFILE Sp ecimen Type: BLOOD No comment enter ed. Ordering Provid er: ISATU TODD Report Released Date/Time: Dec 10, 2021 07:22 AM Reporting Lab: [facility] [address] [facility] [address] Performing Lab: [facility] [address] [facility] [address] WBC 6.0 4.5-11.0 RBC 4.29 4.23-5.66 HGB [...] NRBC 0.00 0-0 Dec 13, 2021 [facility] P4 GLU,BUN,CREAT,LYTES,CA Speci men Type: PLASMA 06:34 AM [facility] Comment: Tests performed on TraceSecurity (581) SN:[id number] Ordering Provid er: ISATU TODD Report Released Date/Time: Dec 11, 2021 07:42 AM Reporting Lab: [facility] [address] [facility] [address] Performing Lab: [facility] [address] [facility] [address] UREA NITROGEN 12 7-25 SODIUM 136 135-145 POTASSIUM 3.9 3.5-5.0 CHLORIDE 105 100-110 CARBON DIOXIDE 24 20-30 ANION GAP 7 4-16 GLUCOSE 102 H 65-100 CREATININE 0.66 0.5-1.5 CALCIUM 8.3 L 8.5-10.5 eGFR(CKD-EPI 2020) >90.0 >60 Dec 13, 2021 06:34 AM [facility] CBC PROFILE Sp ecimen Type: BLOOD No comment enter ed. Ordering Provid er: ISATU TODD Report Released Date/Time: Dec 10, 2021 07:22 AM Reporting Lab: [facility] [address] [facility] [address] Performing Lab: [facility] [address] [facility] [address] WBC 5.6 4.5-11.0 RBC 4.28 4.23-5.66 HGB [...] ABSOLUTE NRBC 0.00 0-0 Dec 12, 2021 [facility] P4 GLU,BUN,CREAT,LYTES,CA Speci men Type: PLASMA 06:21 AM [facility] Comment: Tests performed on TraceSecurity (405) SN:[id number] Ordering Provid er: ISATU TODD Report Released Date/Time: Dec 11, 2021 07:42 AM Reporting Lab: [facility] [address] [facility] [address] Performing Lab: [facility] [address] [facility] [address] UREA NITROGEN 11 7-25 SODIUM 139 135-145 POTASSIUM 4.1 3.5-5.0 CHLORIDE 107 100-110 CARBON DIOXIDE 24 20-30 ANION GAP 8 4-16 GLUCOSE 110 H 65-100 CREATININE 0.70 0.5-1.5 CALCIUM 8.3 L 8.5-10.5 eGFR(CKD-EPI 2020) >90.0 >60 Dec 12, 2021 06:21 AM [facility] CBC PROFILE Sp ecimen Type: BLOOD No comment enter ed. Ordering Provid er: ISATU TODD Report Released Date/Time: Dec 10, 2021 07:22 AM Reporting Lab: [facility] [address] [facility] [address] Performing Lab: [facility] [address] [facility] [address] WBC 5.5 4.5-11.0 RBC 4.37 4.23-5.66 HGB [...] Type: PLASMA Comment: Testin g Performed on TraceSecurity (405) SN:[id number] Ordering Provid er: ISATU TODD Report Released Date/Time: Dec 12, 2021 08:24 AM Reporting Lab: [place] [facility] [address] [facility] [address] Performing Lab: [place] [facility] [address] [facility] [address] MAGNESIUM 1.8 1.6-2.6 Dec 12, 2021 06:00 AM [place] [facility] PHOSPHORUS Sp ecimen Type: PLASMA Comment: Testin g Performed on TraceSecurity (405) SN:[id number] Ordering Provid er: ISATU TODD Report Released Date/Time: Dec 12, 2021 08:24 AM Reporting Lab: [place] [facility] [address] [facility] [address] Performing Lab: [place] [facility] [address] [facility] [address] PHOSPHORUS 3.1 2.5-5.0 Dec 11, 2021 06:15 AM [place] [facility] ELECTROLYTES Sp ecimen Type: PLASMA Comment: Tests performed on TraceSecurity (405) SN:[id number] Ordering Provid er: ISATU TODD Report Released Date/Time: Dec 10, 2021 07:22 AM Reporting Lab: [place] [facility] [address] [facility] [address] Performing Lab: [place] [facility] [address] [facility] [address] SODIUM 137 135-145 POTASSIUM 4.3 3.5-5.0 CHLORIDE 108 100-110 CARBON DIOXIDE 20 20-30 ANION GAP 9 4-16 Dec 11, 2021 06:15 AM [place] [facility] CBC PROFILE Sp ecimen Type: BLOOD Comment: Result s checked Ordering Provid er: ISATU TODD Report Released Date/Time: Dec 10, 2021 07:22 AM Reporting Lab: [place] [facility] [address] [facility] [address] Performing Lab: [place] [facility] [address] [facility] [address] WBC 5.8 4.5-11.0 RBC 4.37 4.23-5.66 HGB [...] ecimen Type: PLASMA Comment: Tests performed on TraceSecurity (405) SN:[id number] Results checked Ordering Provid er: ISATU TODD Report Released Date/Time: Dec 11, 2021 07:44 AM Reporting Lab: [place] [facility] [address] [facility] [address] Performing Lab: [facility] [place] [facility] [address] [facility] PHOSPHORUS 3.0 2.5-5.0 Dec 10, 2021 08:05 AM [facility] MAGNESIUM Sp ecimen Type: PLASMA Comment: [place] [id number] on Dec 10, 2021@08:31 Tests performed on Pham Skilled Laborer (405) SN:[id number] Ordering Provid er: ISATU TODD Report Released Date/Time: Dec 10, 2021 07:22 AM Reporting Lab: [place] [facility] [address] [place] [facility] [place] [place] [address] Performing Lab: [place] [facility] [address] [facility] [place] [place] [address] MAGNESIUM 1.7 1.6-2.6 Dec 10, 2021 08:05 AM [place] [facility] PHOSPHORUS Sp ecimen Type: PLASMA Comment: [place] [id number] on Dec 10, 2021@08:31 Tests performed on Pham Skilled Laborer (405) SN:[id number] Ordering Provid er: ISATU TODD Report Released Date/Time: Dec 10, 2021 07:22 AM Reporting Lab: [place] [facility] [address] [facility] [place] [address] Performing Lab: [place] [facility] [address] [facility] [place] [address] PHOSPHORUS 1.8 L 2.5-5.0 Dec 10, 2021 08:05 AM [place] UREA NITROGEN Specimen Type: PLASMA [facility] Comment: [place] [id number] on Dec 10, 2021@08:31 Tests performed on Pham Skilled Laborer (405) SN:[id number] Ordering Provid er: ISATU TODD Report Released Date/Time: Dec 10, 2021 07:22 AM Reporting Lab: [place] [facility] [address] [facility] [place] [place] [address] Performing Lab: [place] [facility] [address] [facility] [place] [address] UREA NITROGEN 8 7-25 Dec 10, 2021 08:05 AM [place] [facility] GLUCOSE Sp ecimen Type: PLASMA Comment: [place] [id number] on Dec 10, 2021@08:31 Tests performed on Pham Skilled Laborer (405) SN:[id number] Ordering Provid er: ISATU TODD Report Released Date/Time: Dec 10, 2021 07:22 AM Reporting Lab: [place] [facility] [address] [place] [facility] [place] [address] Performing Lab: [place] [facility] [address] [facility] [place] [address] GLUCOSE 144 H 65-100 Dec 10, 2021 08:05 AM [place] [facility] CALCIUM Sp ecimen Type: PLASMA Comment: [place] [id number] on Dec 10, 2021@08:31 Tests performed on TraceSecurity (405) SN:[id number] Ordering Provid er: ISATU TODD Report Released Date/Time: Dec 10, 2021 07:22 AM Reporting Lab: [place] [facility] [address] [facility] [address] Performing Lab: [place] [facility] [address] [facility] [place] [address] CALCIUM 8.3 L 8.5-10.5 Dec 10, 2021 08:05 AM [place] [facility] ELECTROLYTES Sp ecimen Type: PLASMA Comment: [place] [id number] on Dec 10, 2021@08:31 Tests performed on TraceSecurity (405) SN:[id number] Ordering Provid er: ISATU TODD Report Released Date/Time: Dec 10, 2021 07:22 AM Reporting Lab: [place] [facility] [address] [facility] [place] [address] Performing Lab: [place] [facility] [address] [facility] [place] [address] SODIUM 139 135-145 POTASSIUM 3.7 3.5-5.0 CHLORIDE 107 100-110 CARBON DIOXIDE 24 20-30 ANION GAP 8 4-16 Dec 10, 2021 08:05 [place] CREATININE WITH eGFR Specime n Type: PLASMA AM [facility] PANEL Comment: [place] [id number] on Dec 10, 2021@08:31 Tests performed on TraceSecurity (405) SN:[id number] Ordering Provid er: ISATU TODD Report Released Date/Time: Dec 10, 2021 07:22 AM Reporting Lab: [place] [facility] [address] [facility] [place] [address] Performing Lab: [place] [facility] [address] [facility] [place] [place] [address] CREATININE 0.78 0.5-1.5 eGFR(CKD-EPI 2020) >90.0 >60 Dec 10, 2021 08:05 AM [place] [facility] CBC PROFILE Sp ecimen Type: BLOOD No comment enter ed. Ordering Provid er: ISATU TODD Report Released Date/Time: Dec 10, 2021 07:22 AM Reporting Lab: [facility] [address] [facility] [address] Performing Lab: [facility] [address] [facility] WBC 7.0 4.5-11.0 RBC 4.54 4.23-5.66 HGB [...] 0.00 0-0 Dec 09, 2021 06:46 AM [facility] MAGNESIUM Sp ecimen Type: PLASMA Comment: Tests performed on TraceSecurity (405) SN:[id number] Ordering Provid er: ISATU TODD Report Released Date/Time: Dec 08, 2021 10:23 AM Reporting Lab: [facility] [address] [facility] [address] Performing Lab: [facility] [address] [facility] [address] MAGNESIUM 1.6 1.6-2.6 Dec 09, 2021 [facility] P4 GLU,BUN,CREAT,LYTES,CA Speci men Type: PLASMA 06:46 AM [facility] Comment: Tests performed on TraceSecurity (405) SN:[id number] Ordering Provid er: ISATU TODD Report Released Date/Time: Dec 08, 2021 05:00 PM Reporting Lab: [facility] [address] [facility] [address] Performing Lab: [facility] [address] [facility] [address] UREA NITROGEN 6 L 7-25 SODIUM 134 L 135-145 POTASSIUM 3.7 3.5-5.0 CHLORIDE 103 100-110 CARBON DIOXIDE 23 20-30 ANION GAP 8 4-16 GLUCOSE 112 H 65-100 CREATININE 0.70 0.5-1.5 CALCIUM 8.1 L 8.5-10.5 eGFR(CKD-EPI 2020) >90.0 >60 Dec 09, 2021 06:46 AM [facility] CBC PROFILE Sp ecimen Type: BLOOD No comment enter ed. Ordering Provid er: ISATU TODD Report Released Date/Time: Dec 08, 2021 05:00 PM Reporting Lab: [facility] [address] [facility] [address] Performing Lab: [facility] [address] [facility] [address] WBC 7.1 4.5-11.0 RBC 4.40 4.23-5.66 HGB [...] Type: PLASMA Comment: Testin g Performed on TraceSecurity (405) SN:[id number] Ordering Provid er: ISATU TODD Report Released Date/Time: Dec 07, 2021 10:32 AM Reporting Lab: [place] [facility] [address] [facility] [address] Performing Lab: [place] [facility] [address] [facility] [address] MAGNESIUM 1.5 L 1.6-2.6 Dec 08, 2021 [place] P4 GLU,BUN,CREAT,LYTES,CA Speci men Type: PLASMA 06:39 AM [facility] Comment: Testin g Performed on TraceSecurity (405) SN:[id number] Ordering Provid er: ISATU TODD Report Released Date/Time: Dec 07, 2021 10:32 AM Reporting Lab: [place] [facility] [address] [facility] [address] Performing Lab: [place] [facility] [address] [facility] [address] UREA NITROGEN 6 L 7-25 SODIUM 136 135-145 POTASSIUM 3.3 L 3.5-5.0 CHLORIDE 104 100-110 CARBON DIOXIDE 22 20-30 ANION GAP 10 4-16 GLUCOSE 133 H 65-100 CREATININE 0.76 0.5-1.5 CALCIUM 8.4 L 8.5-10.5 eGFR(CKD-EPI 2020) >90.0 >60 Dec 08, 2021 06:39 AM [place] [facility] CBC PROFILE Sp ecimen Type: BLOOD No comment enter ed. Ordering Provid er: ISATU TODD Report Released Date/Time: Dec 07, 2021 10:32 AM Reporting Lab: [place] [facility] [address] [facility] [address] Performing Lab: [place] [facility] [address] [facility] [address] WBC 8.4 4.5-11.0 RBC 4.75 4.23-5.66 HGB [...] ABSOLUTE NRBC 0.00 0-0 Dec 07, 2021 [facility] P4 GLU,BUN,CREAT,LYTES,CA Speci men Type: PLASMA 06:42 AM [facility] Comment: Tests performed on TraceSecurity (405) SN:[id number] Ordering Provid er: PORFIRIO WALTERS Report Released Date/Time: Dec 06, 2021 06:57 PM Reporting Lab: [facility] [address] [facility] [address] Performing Lab: [facility] [address] [facility] [address] UREA NITROGEN 9 7-25 SODIUM 135 135-145 POTASSIUM 3.5 3.5-5.0 CHLORIDE 103 100-110 CARBON DIOXIDE 22 20-30 ANION GAP 10 4-16 GLUCOSE 92 65-100 CREATININE 0.73 0.5-1.5 CALCIUM 8.0 L 8.5-10.5 eGFR(CKD-EPI 2020) >90.0 >60 Dec 07, 2021 06:42 [place] LIVER PROFILE Specimen Typ e: PLASMA AM [facility] Comment: Tests performed on TraceSecurity (405 SN:[id number] Ordering Provid er: PORFIRIO WALTERS Report Released Date/Time: Dec 06, 2021 06:57 PM Reporting Lab: [facility] [address] [facility] [address] Performing Lab: [facility] [address] [facility] [address] PROTEIN, TOTAL 5.7 L 6.0-8.5 ALBUMIN 2.4 L 3.2-5.0 BILIRUBIN, TOTAL 0.4 0.2-1.2 ALKALINE PHOSPHATASE 109 40-150 ALT(SGPT) 10 7-52 AST(SGOT) 15 5-34 FIB-4 SCORE 1.92 <2.67 Dec 07, 2021 06:42 AM [facility] CBC PROFILE Specimen Type: BLOOD [facility] No comment enter ed. Ordering Provid er: PORFIRIO WALTERS Report Released Date/Time: Dec 06, 2021 06:57 PM Reporting Lab: [facility] [address] [facility] [address] Performing Lab: [facility] [address] [facility] [address] WBC 5.7 4.5-11.0 RBC 4.15 L 4.23-5.66 [...] [facility] %) AUTOMATED Comment: Tests performed on TraceSecurity (405) SN:[id number] Ordering Provid er: ISATU TODD Report Released Date/Time: Dec 07, 2021 10:28 AM Reporting Lab: [place] [facility] [address] [facility] [address] Performing Lab: [place] [facility] [address] [facility] [address] RETICULOCYTES (%) AUTOMATED 1.23 0. 6-2.0 RETICULOCYTES (ABS) AUTOMATED 0.052 0.030-0.090 Dec 06, 2021 09:45 [place] MRSA SURVL NARES Specimen Ty pe: NARES PM [facility] DNA No comment enter ed. Ordering Provid er: ALVARO VARGHESE Report Released Date/Time: Dec 07, 2021 02:20 AM Reporting Lab: [place] [facility] [address] [facility] [address] Performing Lab: [place] [facility] [address] [facility] [address] MRSA SURVL NARES DNA NEGATIVE NEGATIVE Dec 06, 2021 06:00 [place] URINALYSIS W/REFLEX TO Speci men Type: URINE PM [facility] CULTURE No comment enter ed. Ordering Provid er: JELANI SÁNCHEZ Report Released Date/Time: Dec 06, 2021 11:57 AM Reporting Lab: [place] [facility] [address] [facility] [address] Performing Lab: [place] [facility] [address] [facility] [address] URINE COLOR Arlin YELLOW SPECIFIC GRAVITY 1.029 [...] 21, [place] VARIANT Comment: https://www.cdc.gov/coronavirus/2019-ncov/cases-updates/variant- surveillance/variant-info.html The ClothiaiSeq SARS CoV 2 [employer] Assay-GX is a next-generation sequencing (NGS) assa 2021 [facility] SEQUENCING y that determine s the complete genome sequence of the SARS-CoV-2 virus. The assay contains variant-tolerant primers to broaden and improve the coverage for variant detection and increase the sensitivity 12:00 [facility] PNL() of the panel to enable detection from lower viral titer samples. The assay is run on the [employer] Sequencer, which performs automated library preparation, sequencing, analysis, and reporting. PM The sequence an alysis includes determination of viral phylogenetic lineage by comparison to the reference strain Wuhan-Hu-1, GenBank: [id number]. Sequence determination may not be possible owing [...] and its performance characteristics determined by the [facility] Molecular Diagnostics Laboratory, which is certified under the Clinical Laboratory Improveme nt Amendments (C MARCO) as qualified to perform high complexity clinical laboratory testing. This test is validated for clinical use at [facility] and should not be [...] 06, 2021 01:13 PM Reporting Lab: [facility] [address] [facility] [address] Performing Lab: [facility] [address] [facility] [address] SARS-CoV-2 CLADE() 22C (OMICRON) SARS-CoV-2 LINEAGE() BA.2.12.1 Dec 06, 2021 12:00 [facility] COVID-19 AG SCREEN Specimen Type: NASAL CAVITY PM [facility] PANEL BINAX(405) Comment: Testi ng Performed By: Mike Briscoe Ordering Provid er: JELANI SÁNCHEZ Report Released Date/Time: Dec 08, 2021 08:23 AM Reporting Lab: [place] [facility] [address] [facility] [place] [address] Performing Lab: [place] [facility] [address] [facility] [address] COVID-19 AG SCRN(wrj BINAX) POSITIVE HH NE G Dec 06, 2021 12:00 PM [place] [facility] LIVER PROFILE Sp ecimen Type: PLASMA Comment: Testin g Performed on Pham Skilled Laborer (405) SN:[id number] Ordering Provid er: JELANI SÁNCHEZ Report Released Date/Time: Dec 06, 2021 11:57 AM Reporting Lab: [place] [facility] [address] [facility] [place] [address] Performing Lab: [facility] [address] [facility] [place] [address] PROTEIN, TOTAL 6.6 6.0-8.5 ALBUMIN 2.8 L 3.2-5.0 BILIRUBIN, TOTAL 0.6 0.2-1.2 ALKALINE PHOSPHATASE 134 40-150 ALT(SGPT) 13 7-52 AST(SGOT) 18 5-34 FIB-4 SCORE 1.94 <2.67 Dec 06, 2021 12:00 PM [facility] TROPONIN II Sp ecimen Type: PLASMA Comment: Tests performed on Pham Skilled Laborer (405) SN:[id number] Ordering Provid er: JELANI SÁNCHEZ Report Released Date/Time: Dec 06, 2021 11:57 AM Reporting Lab: [place] [facility] [address] [facility] [place] [address] Performing Lab: [facility] [address] [facility] [place] [address] TROPONIN II 0.03 0.00-0.29 Dec 06, 2021 [facility] P4 GLU,BUN,CREAT,LYTES,CA Speci men Type: PLASMA 12:00 PM [facility] Comment: Testin g Performed on [employer] Skilled Laborer (405) [id number] Ordering Provid er: JELANI SÁNCHEZ Report Released Date/Time: Dec 06, 2021 11:57 AM Reporting Lab: [facility] [address] [facility] [address] Performing Lab: [facility] [address] [facility] [address] UREA NITROGEN 13 7-25 SODIUM 138 135-145 POTASSIUM 3.8 3.5-5.0 CHLORIDE 103 100-110 CARBON DIOXIDE 23 20-30 ANION GAP 12 4-16 GLUCOSE 105 H 65-100 CREATININE 0.90 0.5-1.5 CALCIUM 8.7 8.5-10.5 eGFR(CKD-EPI 2020) >90.0 >60 Dec 06, 2021 12:00 PM [facility] BNP(P) Sp ecimen Type: PLASMA Comment: Tests performed on [employer] Skilled Laborer (405) [id number] Ordering Provid er: JELANI SÁNCHEZ Report Released Date/Time: Dec 06, 2021 11:57 AM Reporting Lab: [facility] [address] [facility] [address] Performing Lab: [facility] [address] [facility] [address] BNP(P) 224.8 H 10-100 Dec 06, 2021 [facility] COVID-19+FLU/RSV DIAGNOSTIC Spe cimen Type: NASOPHARYNX 12:00 PM [facility] PANEL(405) Comment: Tests performed on [employer] Genexpert (405) Critical results called to and read back by: ALESHIA WILKINSON RN 12/06/21 @ 1312 Ordering Provid er: JELANI SÁNCHEZ Report Released Date/Time: Dec 06, 2021 11:57 AM Reporting Lab: [facility] [address] [facility] [address] Performing Lab: [facility] [address] [facility] [address] FLU A(PCR) NEGATIVE NEGATIVE FLU B(PCR) NEGATIVE NEGATIVE RSV(PCR) NEGATIVE NEGATIVE COVID-19(HCP-vmb-NWISSIDPC) DETECTED HH NO T DETECTED Dec 06, 2021 12:00 PM [facility] CBC PROFILE Sp ecimen Type: BLOOD No comment enter ed. Ordering Provid er: JELANI SÁNCHEZ Report Released Date/Time: Dec 06, 2021 11:57 AM Reporting Lab: [facility] [address] [facility] [address] Performing Lab: [facility] [address] [facility] [address] WBC 7.2 4.5-11.0 RBC 4.86 4.23-5.66 HGB [...] > 7 YEARS AGO [facility] Tobacco Use History This section includes a history of the smoking, or tobacco- related health factors, that were collected on or before the date of the Encounter. The data comes from the [place] facility where the Encounter took place. Date/Time Smoking Status/Tobacco Use Comment Facil ity Apr 01, 2020 01:16 PM QUIT TOBACCO USE 1-7 YEARS AGO [facility] Mar 24, 2020 03:00 PM QUIT TOBACCO [...] 1-7 YEARS AGO [facility] May 01, 2016 07:26 PM QUIT TOBACCO USE IN PAST YEAR [facility] May 01, 2016 03:11 PM QUIT TOBACCO USE IN PAST YEAR [facility] May 01, 2016 11:19 AM QUIT TOBACCO USE IN PAST YEAR [facility] Mar 16, 2016 12:50 PM V1-PT DECLINES REF TO TOBACCO [facility] CESS PR[facility] Mar 16, 2016 12:50 PM V1-PT THINKING ABOUT QUIT [facility] TOBACCO USE Aug 12, 2015 08:48 AM CURRENT SMOKER [facility] Radiology Reports: +/- 30 days of [...] the Encounter. The data comes from all [place] treatment facilities. Date/Time Radiology Report Provider Source Dec 13, 2021 12:57 PM MRI ABDOMEN W/WO CONTRAST: MARYELLEN LONG JCT LUCAS MEEK N [id number] -1950 M [facility] Exm Date: DEC 13, 2021@12:57 Req Phys: ISATU TODD Loc: OP Unknown/0 12-15-2021@13:20 Img Loc: MRI IMAGING (OOS) Service: ZZGENERAL MEDICINE (Case [id number] COMPLETE) MRI ABDOMEN W/WO CONTRAST (M RI Detailed) CPT:02890 Reason for Study: further characterization of a [...] new lyphadenopathy REQUESTING MD: Isatu Todd PAGER: [phone] PHONE: [phone] Weight: 232.2 lb [105.32 kg] (12/12/2021 05:00) [...] patient will need to arrange for a paratransit driver to take him/her home after the [...] 15, 2021 Date Verified: DEC 15, 2021 Director Software Development E-Sig:/ES/MARYELLEN LONG Report: MRI ABDOMEN W/WO CONTRAST [...] MALIGNANCY Primary Interpreting Staff: Staff AMELIA THOMAS (Director Software Development) / Dec 10, 2021 09:[address] ABDOMEN & PELVIS: [facility] LUCAS [facility] N [id number] -1950 M [facility] Exm Date: DEC 10, 2021@09:30 Req Phys: ISATU TODD Loc: 1S MED/12-10@10:57 Img Loc: CT SCAN (OOS) Service: [facility] MEDICINE (Case [id number] COMPLETE) CT ABD & PELVIS WITHOUT CONT RAST (CT Detailed) CPT:79380 Reason for Study: 71 yo male with [...] INDEX - NO HEIGHTS FOUND Pager number: [phone] STAT orders MUST be call ed to RADIOLOGY [phone] to speak to the appropriate dialysis equipment technician. Report Status: Verified Date Reported: DEC 10, 2021 Date Verified: DEC 10, 2021 Director Software Development E-Sig: Report: EXAM: CT abdomen and pelvis [...] ph nodes. READING PHYSICIAN: Ramone Munoz D.O. [phone] 12/10/2021 10:55 EDT [facility] [employer] Program [phone] (For Medical Practitioner Use Only ) [address] [place] [address], [address] [place] [address] Attention Patients / Veterans: If you have ques tions or concerns about these test results, please contact your o [facility] provider or primary care team. Primary Diagnostic Code: SIGNIFICANT ABNORMALIT Y, ATTN NEEDED Primary Interpreting Staff: RADIOLOGY,OUTSIDE SERVICE, Staff Physician / Dec 09, 2021 07:34 AM BASW (MODIFIED): JESSIE CHENEY [facility] LUCAS MEEK N [id number] -1950 [facility] Exm Date: DEC 09, 2021@07:34 Req Phys: ISATU TODD Loc: MED/12-09@11:26 Img Loc: XRAY (OOS) Service: [facility] MEDICINE (Case [id number] COMPLETE) BASW (MODIFIED) (EUNICE Detaile d) CPT:26003 Contrast Media : Barium Reason for Study: dysphagia ?esophageal spasm Clinical History: Report Status: Verified Date Reported: DEC 09, 2021 Date Verified: DEC 09, 2021 Director Software Development E-Sig:/ES/JESSIE CHENEY Report: DELISA (MODIFIED) , 12/09/2021 [...] REQUIRED Primary Interpreting Staff: JESSIE CHENEY, RADIOLOGIST (Director Software Development) /TLC Dec 06, 2021 12:[address] CHEST (INCLUDES ADRENALS): JESSIE CHENEY [facility] MEEKLUC[facility] N [id number] -1950 M [facility] Exm Date: DEC 06, 2021@12:59 Req Phys: JELANI SÁNCHEZ Loc: [facility] ED DAYS M 1RD (Req'g Loc) Img Loc: CT SCAN (OOS) Service: Unknown (Case [id number] COMPLETE) CT THORAX W/O CONT (CT Detai led) CPT:28411 Reason for Study: Opacification right chest Clinical History: No contrast allergy BUN: 13 (12/06/21 12:00) CREATI: 0.90 (12/06/21 12:00) eGFR 05/16/21 09:43 52 L Weight: 232.6 lb [105.51 kg] (12/06/2021 11:40) BODY MASS INDEX - NO HEIGHTS FOUND Pager number: [phone] STAT orders MUST be called t o RADIOLOGY [phone] to speak to the appropriate dialysis equipment technician. Indications - Other: Opacification right chest, covid positive, lung cancer histo Report Status: Verified Date Reported: DEC 06, 2021 Date Verified: DEC 06, 2021 Director Software Development E-Sig:/ES/JESSIE CHENEY Report: CT THORAX W/O CONT [...] REQUIRED Primary Interpreting Staff: JESSIE CHENEY RADIOLOGIST (Director Software Development) Primary Interpreting Resident: PRINCE CHAMPION, Resident /ABBI Dec 06, 2021 11:58 AM CHEST SINGLE VIEW: JESSIE CHENEY LUCAS MEEK [id number] -1950 M [facility] Exm Date: DEC 06, 2021@11:58 Req Phys: JELANI SÁNCHEZ Pat Loc: [facility] ED DAYS M 1RD (Req'g Loc) Img Loc: XRAY (OOS) Service: Unknown (Case [id number] COMPLETE) CHEST SINGLE VIEW (RAD Detai led) CPT:58961 Proc Modifiers : PORTABLE EXAM Reason for Study: SOB, home covid test positive Clinical History: Report Status: Verified Date Reported: DEC 06, 2021 Date Verified: DEC 06, 2021 Director Software Development E-Sig:/ES/JESSIE CHENEY Report: Exam type: Chest x-ray [...] REQUIRED Primary Interpreting Staff: JESSIE CHENEY RADIOLOGIST (Director Software Development) /TLC Pathology Reports: +/- 30 days of [...] the Encounter. The data comes from all [place] treatment facilities. Date/Time Pathology Report Provider Source Jan 03, 2022 10:28 AM LR SURGICAL PATHOLOGY REPORT: STEFANY MILLER LOCAL TITLE: LR SURGICAL PATHOLOGY REPORT [facility] STANDARD TITLE: PATHOLOGY REPORT DATE OF NOTE: JAN 03, 2022@10:28:01 ENTRY DATE: JAN 03, 2022@10:28:01 AUTHOR: NIURKA MILLER EXP COSIGNER: URGENCY: STATUS: COMPLETED $APHDR Reporting Lab: [facility] [CLIA# [id number]] [address] [place] [address] - - - - - - [...] automatically d ocumented from SURGERY package case #[id number] Field (#32) PRINCIPAL PRE-OP DIAGNOSIS, (#.72) OTHER [...] automatically d ocumented from SURGERY package case #[id number] Field (#34) PRINCIPAL POST-OP DIAG, (#.74) OTHER [...] Label: Lucas Meek Paperwork: Lucas Meek Cassette: [id number];..;KALYANI;.;930;[phone] Specimen is labeled: ES bx Received in formalin are several pieces of pale boyd and brown tissue, 1.2 x 0.7 cm in aggregate. Submitted entirely in 1 cassette [id number];..;KALYANI;.;782;[phone] SAW 12/15/2021 Microscopic exam: *+* MODIFIED REPORT *+* (Last modified: JAN 03, 2022@09:30:20 typed by NIURKA WADDELL) DIAGNOSIS: A. 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 Kendell long. TIARA Coombs was notified on 12/21/21. Modified on 01/03/22 to include report from [facility] stating that tumor is NEGATIVE for her2/ matheus amplification. The attending pathologist who signature mansoor ears on this report has reviewed all diagnostic slides and has edited t he gross and/or microscopic portion of this report in rendering the final pathologic diagnosis. [address] [address] CPT: 40021 /emely/ NIURKA Yeung MD Signed Jan 03, 2022@10:28 Performing Laboratory: Surgical Pathology Report Performed By: [facility] [CLIA# [id number]] [address] [place] [address] $FTR - - - - - [...] - - LUCAS MEEK STANDARD FORM 515 ID:[id number] SEX:M :1950 AGE: 71 LOC: SDM END PCP: Isatu Todd /charmaine Yeung MD Signed: 01/03/2022 10:28 Dec 21, 2021 11:46 AM LR SURGICAL PATHOLOGY REPORT: STEFANY MILLER LOCAL TITLE: LR SURGICAL PATHOLOGY REPORT [facility] STANDARD TITLE: PATHOLOGY REPORT DATE OF NOTE: DEC 21, 2021@11:46:59 ENTRY DATE: DEC 21, 2021@11:46:59 AUTHOR: NIURKA MILLER EXP COSIGNER: URGENCY: STATUS: COMPLETED $APHDR Reporting Lab: [facility] [CLIA# [id number]] [address] [place] [place] [address] - - - - - - [...] automatically d ocumented from SURGERY package case #[id number] Field (#32) PRINCIPAL PRE-OP DIAGNOSIS, (#.72) OTHER [...] automatically d ocumented from SURGERY package case #[id number] Field (#34) PRINCIPAL POST-OP DIAG, (#.74) OTHER [...] Label: Lucas Meek Paperwork: Lucas Meek Cassette: [id number];..;KALYANI;.;405;[phone] Specimen is labeled: ES bx Received in formalin are several pieces of pale boyd and brown tissue, 1.2 x 0.7 cm in aggregate. Submitted entirely in 1 cassette [id number];..;KALYANI;.;405;[id number] SAW 12/15/2021 Microscopic exam: DIAGNOSIS: A. 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 Kendell long. TIARA Coombs was notified on 12/21/21. The attending pathologist who signature mansoor ears on this report has reviewed all diagnostic slides and has edited t he gross and/or microscopic portion of this report in rendering the final pathologic diagnosis. [address] [address] CPT: 93048 /emely/ NIURKA Yeung MD Signed Dec 21, 2021@11:46 Performing Laboratory: Surgical Pathology Report Performed By: [facility] [CLIA# [id number]] [address] [place] [address] $FTR - - - - - [...] - - LUCAS MEEK STANDARD FORM 515 ID:[id number] SEX:M :1950 AGE: 71 LOC: SDM END PCP: Isatu Todd /emely/ NIURKA MILLER Staff Signed: 12/21/2021 11:46 Dec 06, 2021 03:30 PM LR MICROBIOLOGY REPORT: [facility] Reporting Lab: [facility] [CLIA# [id number]] [address] [place] [address] Accession [UID]: [id number] [[id number]] Receiv ed: Dec 06, 2021@16:14 Collection sample: BLOOD CUL T BOTTLE(NIRMAL/AERO)Collection date: Dec 06, 2021 15:30 Site/Specimen: BLOOD Provider: JELANI SÁNCHEZ Comment on specimen: LAC Test(s) ordered: BLOOD CULTURE ANAEROBI C....... completed: Dec 12, 2021 06:18 * BACTERIOLOGY FINAL REPORT => Dec 12, 2021 06:1 8 TECH CODE: [id number] Bacteriology Remark(s): NO GROWTH IN 5 DAYS =--=--=--=--=--=--=--=--=--=--=--=--=--= --=--=--=--=--=--=--=--=--=--=--=--=-- Performing Laboratory: Bacteriology Report Performed By: [facility] [CLIA# [id number]] [address] [place] [address] Dec 06, 2021 03:30 PM LR MICROBIOLOGY REPORT: [facility] Reporting Lab: [facility] [CLIA# [id number]] [address] [place] [address] Accession [UID]: [id number] [[id number]] Receiv ed: Dec 06, 2021@16:14 Collection sample: BLOOD CUL T BOTTLE(NIRMAL/AERO)Collection date: Dec 06, 2021 15:30 Site/Specimen: BLOOD Provider: JELANI SÁNCHEZ Comment on specimen: LAC Test(s) ordered: BLOOD CULTURE AEROBIC. ........ completed: Dec 12, 2021 06:17 * BACTERIOLOGY FINAL REPORT => Dec 12, 2021 06:1 7 TECH CODE: [id number] Bacteriology Remark(s): NO GROWTH IN 5 DAYS =--=--=--=--=--=--=--=--=--=--=--=--=--= --=--=--=--=--=--=--=--=--=--=--=--=-- Performing Laboratory: Bacteriology Report Performed By: [facility] [CLIA# [id number]] [address] [place] [address] Encounter Notes: All associated encounter notes This section contains the clinical notes associated to the Encounter. Date/Time Encounter Note(s) Provider Source Dec 23, 2021 01:05 PM NUTRITION DIETETICS TELEPHONE ENCOUNTE R NOTE: CONY SANTACRUZ [facility] LOCAL TITLE: Nutrition Telephone Note STANDARD TITLE: NUTRITION DIETETICS TELEPHONE EN COUNTER NOTE DATE OF NOTE: DEC 23, 2021@13:05 ENTRY DATE: DEC 23, 2021@13:05:15 AUTHOR: CONY SANTACRUZ EXP COSIGNER: URGENCY: STATUS: COMPLETED Called pt as f/u to his recent admission. Do see bx confirmed esophageal adenocarcinoma. T/w placed the outpt order for E nsure plus lat week which was sent out earlier this week. F/u call was to [facility] in how he has tolerated the diet he d/c'd on, f/u on Ensure and his need for thickener. was left asking for a return call. Do see recent notes show [facility] providers have tried to reach pt with no luck. He has a new pt appt with his PACT on 01/10, if he does not return t/w call will f/u on info from this a ppt. /es/ Cony Santacruz RD Clinical Dietitian Signed: 12/23/2021 13:09
--- OUTSIDE RECORDS SUMMARY | 2022-01-19 08:13 | XMS_ITS | Encounter Summary ---
:1950 Author Organization Department [facility] Address [address] [place] [id number] Support Name Relationship Address Phone STEPHANIE MEEK Unavailable [address] [place] [facility] [place] [address] STEPHANIE MEEK Unavailable [address] - [place] [facility] [place] [address] CLAY MOSLEY Unavailable Unavailable SJ SANTACRUZ Unavailable [...] MEDICARE MEDICARE PART Jun 18, PART A [id number] DO KALYANI PATIENT (WNR) (M) A 2016 13A 1 [place] MEDICARE MEDICARE PART Jun 18, PART B [id number] DO KALYANI PATIENT (WNR) (M) B 2016 13A 1 [place]AS MEDICARE MEDICARE PART Jun 18, PART A [id number] KALYANIDO PATIENT (WNR) (M) A 2017 VH81 2 [place]AS MEDICARE MEDICARE PART Jun 18, PART B [id number] DO KALYANI PATIENT (WNR) (M) B 2017 VH81 2 LAS UNITED MEDICARE MCR(Jun 18 [id number] Luz MEEK PATIENT HEALTHCARE ADVANTAGE NR) 2021 37 0 [facility] (WNR) Selected Encounter This section includes the information on record at NH for the Encounter. Date/Time Encounter Type Encounter Reason Provider Source Description Dec 06, 2021 EMERGENCY DEPT EMERGENCY DEPT ICD-10-CM J18.9 PAVEL SÁNCHEZ CHANTAL 11:40 AM VISIT Pneumonia, J unspecified organism with Provider Comments: Pneumonia, unspecified organism IHE Encounter Template Text not used by NH Assessments - Encounter Diagnoses This section includes the primary and secondary diagnoses documented for the Encounter. Date/Time Primary/Secondary Diagnosis Name Provider Source Diagnosis Dec 06, 2021 PRIMARY Pneumonia, FILI JONES 09:40 PM unspecified A [facility] organism Plan of Treatment: Future Appointments (+ 6 months) and Future Tests (+/- 45 days) The Plan of Treatment section includes future care activities for the patient from all NH treatmentfacilities. This section includes future appointments and future orders which are active, pending orscheduled.Future Appointments This section includes appointments that were scheduled to occur 6 months from the date of the Encounter, up to a maximum of 20 appointments. The data comes from all NH treatment facilities. Appointment Date/Time Appointment Type Appointment Facili ty Name Dec 21, 2021 08:00 AM AMBULATORY - NONE CAREY DOYLE T [facility] Jan 06, 2022 02:00 PM AMBULATORY - REHAB MEDICINE C[facility]Y NAYLOR R T [facility] Jan 10, 2022 11:30 AM AMBULATORY - MEDICINE [facility] Jan 24, 2022 08:00 AM AMBULATORY - REHAB MEDICINE [facility] N[facility]LOR R T [facility] Feb 21, 2022 10:00 AM AMBULATORY - SURGERY CAREY DOYLE T [facility] Mar 21, 2022 10:30 AM [...] the Encounter. The data comes from all NH treatment facilities. Test Date/Time Test Type Test Details Facility Name October 31, 2021 07:37 AM Consult Order [facility] [employer] [employer] November 15, 2021 10:37 AM Consult Order [facility]OD[facility] Cons [employer] Dec 06, 2021 12:52 PM [place]acy [place] [facility] Dec 06, 2021 03:24 PM Pharmacy [place] [facility] Dec 06, 2021 03:40 PM [place]acy [place] Order [facility] Dec 15, 2021 08:41 AM Consult Order [facility]ECH PATHOLOG[facility] [place] [facility] [employer] Jan 15, 2022 10:08 PM Consult Order [facility] CARE-PALLIATIVE CARE Cons [employer] Lab Results: +/- 30 days of [...] Range Comment Dec 15, 2021 [place] P4 GLU,BUN,CREAT,LYTES,CA Speci men Type: PLASMA 06:43 AM [facility] Comment: Tests performed on nVoq (405) SN:[id number] Ordering Provid er: ASHLY TODD Report Released Date/Time: Dec 11, 2021 07:42 AM Reporting Lab: [place] [facility] [address] [facility] [address] Performing Lab: [place] [facility] [address] [facility] [address] UREA NITROGEN 9 7-25 SODIUM 137 135-145 POTASSIUM 3.8 3.5-5.0 CHLORIDE 105 100-110 CARBON DIOXIDE 26 20-30 ANION GAP 6 4-16 GLUCOSE 102 H 65-100 CREATININE 0.64 0.5-1.5 CALCIUM 8.1 L 8.5-10.5 eGFR(CKD-EPI 2020) >90.0 >60 Dec 15, 2021 06:43 AM [facility] CBC PROFILE Sp ecimen Type: BLOOD No comment enter ed. Ordering Provid er: ASHLY TODD Report Released Date/Time: Dec 10, 2021 07:22 AM Reporting Lab: [place] [facility] [address] [facility] [address] Performing Lab: [place] [facility] [address] [facility] [address] WBC 5.7 4.5-11.0 RBC 4.22 L 4.23-5.66 [...] ABSOLUTE NRBC 0.00 0-0 Dec 14, 2021 [facility] CYTOGENETIC Specimen Type: ESOPHAGUS 02:59 PM [facility] Comment: ~For T est: CYTOGENETIC FISH([facility]) ~FISH HER 2 NUE, FFPE See full report in [place] Image display viewer/tab#LAB-Reference Ordering Provid er: NIURKA MILLER Report Released Date/Time: Dec 21, 2021 12:11 PM Reporting Lab: [facility] [address] [facility] [address] Performing Lab: [facility] CYTOGENETIC FISH([facility]) comment Dec 14, 2021 [facility] P4 GLU,BUN,CREAT,LYTES,CA Speci men Type: PLASMA 06:27 AM [facility] Comment: Tests performed on nVoq (405) SN:[id number] Ordering Provid er: ASHLY TODD Report Released Date/Time: Dec 11, 2021 07:42 AM Reporting Lab: [facility] [address] [facility] [address] Performing Lab: [facility] [address] [facility] [address] UREA NITROGEN 10 7-25 SODIUM 137 135-145 POTASSIUM 4.0 3.5-5.0 CHLORIDE 104 100-110 CARBON DIOXIDE 25 20-30 ANION GAP 8 4-16 GLUCOSE 99 65-100 CREATININE 0.67 0.5-1.5 CALCIUM 8.2 L 8.5-10.5 eGFR(CKD-EPI 2020) >90.0 >60 Dec 14, 2021 06:27 AM [facility] CBC PROFILE Sp ecimen Type: BLOOD No comment enter ed. Ordering Provid er: ASHLY TODD Report Released Date/Time: Dec 10, 2021 07:22 AM Reporting Lab: [facility] [address] [facility] [address] Performing Lab: [facility] [address] [facility] [address] WBC 6.0 4.5-11.0 RBC 4.29 4.23-5.66 HGB [...] ABSOLUTE NRBC 0.00 0-0 Dec 13, 2021 [place] P4 GLU,BUN,CREAT,LYTES,CA Speci men Type: PLASMA 06:34 AM [facility] Comment: Tests performed on nVoq (405) SN:[id number] Ordering Provid er: ASHLY TODD Report Released Date/Time: Dec 11, 2021 07:42 AM Reporting Lab: [facility] [address] [facility] [address] Performing Lab: [facility] [address] [facility] [address] UREA NITROGEN 12 7-25 SODIUM 136 135-145 POTASSIUM 3.9 3.5-5.0 CHLORIDE 105 100-110 CARBON DIOXIDE 24 20-30 ANION GAP 7 4-16 GLUCOSE 102 H 65-100 CREATININE 0.66 0.5-1.5 CALCIUM 8.3 L 8.5-10.5 eGFR(CKD-EPI 2020) >90.0 >60 Dec 13, 2021 06:34 AM [facility] CBC PROFILE Sp ecimen Type: BLOOD No comment enter ed. Ordering Provid er: ASHLY TODD Report Released Date/Time: Dec 10, 2021 07:22 AM Reporting Lab: [facility] [address] [facility] [address] Performing Lab: [facility] [address] [facility] [address] WBC 5.6 4.5-11.0 RBC 4.28 4.23-5.66 HGB [...] ABSOLUTE NRBC 0.00 0-0 Dec 12, 2021 [facility] P4 GLU,BUN,CREAT,LYTES,CA Speci men Type: PLASMA 06:21 AM [facility] Comment: Tests performed on nVoq (405) SN:[id number] Ordering Provid er: ASHLY TODD Report Released Date/Time: Dec 11, 2021 07:42 AM Reporting Lab: [facility] [address] [facility] [address] Performing Lab: [facility] [address] [facility] [address] UREA NITROGEN 11 7-25 SODIUM 139 135-145 POTASSIUM 4.1 3.5-5.0 CHLORIDE 107 100-110 CARBON DIOXIDE 24 20-30 ANION GAP 8 4-16 GLUCOSE 110 H 65-100 CREATININE 0.70 0.5-1.5 CALCIUM 8.3 L 8.5-10.5 eGFR(CKD-EPI 2020) >90.0 >60 Dec 12, 2021 06:21 AM [facility] CBC PROFILE Sp ecimen Type: BLOOD No comment enter ed. Ordering Provid er: ASHLY TODD Report Released Date/Time: Dec 10, 2021 07:22 AM Reporting Lab: [facility] [address] [facility] [address] Performing Lab: [facility] [address] [facility] [address] WBC 5.5 4.5-11.0 RBC 4.37 4.23-5.66 HGB [...] Type: PLASMA Comment: Testin g Performed on nVoq (405) SN:[id number] Ordering Provid er: ASHLY TODD Report Released Date/Time: Dec 12, 2021 08:24 AM Reporting Lab: [facility] [address] [facility] [address] Performing Lab: [facility] [address] [facility] [address] MAGNESIUM 1.8 1.6-2.6 Dec 12, 2021 06:00 AM [place] [facility] PHOSPHORUS Sp ecimen Type: PLASMA Comment: Testin g Performed on nVoq (405) SN:[id number] Ordering Provid er: ASHLY TODD Report Released Date/Time: Dec 12, 2021 08:24 AM Reporting Lab: [facility] [address] [facility] [address] Performing Lab: [facility] [address] [facility] [address] PHOSPHORUS 3.1 2.5-5.0 Dec 11, 2021 06:15 AM [place] [facility] ELECTROLYTES Sp ecimen Type: PLASMA Comment: Tests performed on nVoq (405) SN:[id number] Ordering Provid er: ASHLY TODD Report Released Date/Time: Dec 10, 2021 07:22 AM Reporting Lab: [facility] [address] [facility] [address] Performing Lab: [facility] [address] [facility] [address] SODIUM 137 135-145 POTASSIUM 4.3 3.5-5.0 CHLORIDE 108 100-110 CARBON DIOXIDE 20 20-30 ANION GAP 9 4-16 Dec 11, 2021 06:15 AM [facility] CBC PROFILE Sp ecimen Type: BLOOD Comment: Result s checked Ordering Provid er: ASHLY TODD E Report Released Date/Time: Dec 10, 2021 07:22 AM Reporting Lab: [facility] [address] [facility] [address] Performing Lab: [facility] [address] [facility] [address] WBC 5.8 4.5-11.0 RBC 4.37 4.23-5.66 HGB [...] 0.00 0-0 Dec 11, 2021 06:00 AM [facility] PHOSPHORUS Sp ecimen Type: PLASMA Comment: Tests performed on nVoq (405) SN:[id number] Results checked Ordering Provid er: ASHLY TODD Report Released Date/Time: Dec 11, 2021 07:44 AM Reporting Lab: [place] [facility] [address] [facility] [place] [address] Performing Lab: [place] [facility] [address] [facility] [place] [address] PHOSPHORUS 3.0 2.5-5.0 Dec 10, 2021 08:05 AM [place] [facility] MAGNESIUM Sp ecimen Type: PLASMA Comment: [place] [id number] on Dec 10, 2021@08:31 Tests performed on Pham Orchestra Director (405) SN:[id number] Ordering Provid er: ASHLY TODD Report Released Date/Time: Dec 10, 2021 07:22 AM Reporting Lab: [place] [facility] [address] [place] [facility] [address] Performing Lab: [place] [facility] [address] [facility] [place] [address] MAGNESIUM 1.7 1.6-2.6 Dec 10, 2021 08:05 AM [place] [facility] PHOSPHORUS Sp ecimen Type: PLASMA Comment: [place] [id number] on Dec 10, 2021@08:31 Tests performed on Pham Orchestra Director (405) SN:[id number] Ordering Provid er: ASHLY TODD Report Released Date/Time: Dec 10, 2021 07:22 AM Reporting Lab: [place] [facility] [address] [place] [facility] [address] Performing Lab: [place] [facility] [address] [place] [facility] [place] [address] PHOSPHORUS 1.8 L 2.5-5.0 Dec 10, 2021 08:05 AM [place] UREA NITROGEN Specimen Type: PLASMA [facility] Comment: [place] [id number] on Dec 10, 2021@08:31 Tests performed on nVoq (405) SN:[id number] Ordering Provid er: ASHLY TODD Report Released Date/Time: Dec 10, 2021 07:22 AM Reporting Lab: [place] [facility] [address] [facility] [place] [address] Performing Lab: [place] [facility] [address] [place] [facility] [place] [address] UREA NITROGEN 8 7-Dec 10, 2021 08:05 AM [place] [facility] GLUCOSE Sp ecimen Type: PLASMA Comment: [place] [id number] on Dec 10, 2021@08:31 Tests performed on nVoq (405) SN:[id number] Ordering Provid er: ASHLY TODD Report Released Date/Time: Dec 10, 2021 07:22 AM Reporting Lab: [place] [facility] [address] [facility] [address] Performing Lab: [place] [facility] [address] [facility] [address] GLUCOSE 144 H 65-100 Dec 10, 2021 08:05 AM [place] [facility] ELECTROLYTES Sp ecimen Type: PLASMA Comment: [place] [id number] on Dec 10, 2021@08:31 Tests performed on nVoq (405) SN:[id number] Ordering Provid er: ASHLY TODD Report Released Date/Time: Dec 10, 2021 07:22 AM Reporting Lab: [place] [facility] [address] [facility] [address] Performing Lab: [place] [facility] [address] [place] [facility] [place] [address] SODIUM 139 135-145 POTASSIUM 3.7 3.5-5.0 CHLORIDE 107 100-110 CARBON DIOXIDE 24 20-30 ANION GAP 8 4-16 Dec 10, 2021 08:05 [place] CREATININE WITH eGFR Specime n Type: PLASMA AM [facility] PANEL [place]: [place] [id number] on Dec 10, 2021@08:31 Tests performed on nVoq (405) SN:[id number] Ordering Provid er: ASHLY TODD Report Released Date/Time: Dec 10, 2021 07:22 AM Reporting Lab: [place] [facility] [address] [place] [facility] [place] [address] Performing Lab: [place] [facility] [address] [facility] [address] CREATININE 0.78 0.5-1.5 eGFR(CKD-EPI 2020) >90.0 >60 Dec 10, 2021 08:05 AM [place] [facility] CBC PROFILE Sp ecimen Type: BLOOD No comment enter ed. Ordering Provid er: ASHLY TODD Report Released Date/Time: Dec 10, 2021 07:22 AM Reporting Lab: [place] [facility] [address] [facility] [address] Performing Lab: [facility] [address] [facility] [address] WBC 7.0 4.5-11.0 RBC 4.54 4.23-5.66 HGB [...] 0.00 0-0 Dec 10, 2021 08:05 AM [facility] CALCIUM Sp ecimen Type: PLASMA Comment: [place] [id number] on Dec 10, 2021@08:31 Tests performed on nVoq (405) SN:[id number] Ordering Provid er: ASHLY TODD Report Released Date/Time: Dec 10, 2021 07:22 AM Reporting Lab: [facility] [address] [facility] [address] Performing Lab: [facility] [address] [facility] [address] CALCIUM 8.3 L 8.5-10.5 Dec 09, 2021 06:46 AM [facility] MAGNESIUM Sp ecimen Type: PLASMA Comment: Tests performed on Pham Orchestra Director (405) SN:[id number] Ordering Provid er: ASHLY TODD Report Released Date/Time: Dec 08, 2021 10:23 AM Reporting Lab: [facility] [address] [facility] [address] Performing Lab: [facility] [address] [facility] [address] MAGNESIUM 1.6 1.6-2.6 Dec 09, 2021 [place] P4 GLU,BUN,CREAT,LYTES,CA Speci men Type: PLASMA 06:46 AM [facility] Comment: Tests performed on Pham Orchestra Director (405) SN:[id number] Ordering Provid er: ASHLY TODD Report Released Date/Time: Dec 08, 2021 05:00 PM Reporting Lab: [facility] [address] [facility] [address] Performing Lab: [facility] [address] [facility] [address] UREA NITROGEN 6 L 7-25 SODIUM 134 L 135-145 POTASSIUM 3.7 3.5-5.0 CHLORIDE 103 100-110 CARBON DIOXIDE 23 20-30 ANION GAP 8 4-16 GLUCOSE 112 H 65-100 CREATININE 0.70 0.5-1.5 CALCIUM 8.1 L 8.5-10.5 eGFR(CKD-EPI 2020) >90.0 >60 Dec 09, 2021 06:46 AM [place] [facility] CBC PROFILE Sp ecimen Type: BLOOD No comment enter ed. Ordering Provid er: ASHLY TODD Report Released Date/Time: Dec 08, 2021 05:00 PM Reporting Lab: [place] [facility] [address] [facility] [address] Performing Lab: [place] [facility] [address] [facility] [address] WBC 7.1 4.5-11.0 RBC 4.40 4.23-5.66 HGB [...] 0.00 0-0 Dec 08, 2021 06:39 AM [place] [facility] MAGNESIUM Sp ecimen Type: PLASMA Comment: Testin g Performed on nVoq (405) SN:[id number] Ordering Provid er: ASHLY TODD Report Released Date/Time: Dec 07, 2021 10:32 AM Reporting Lab: [facility] [address] [facility] [address] Performing Lab: [facility] [address] [facility] [address] MAGNESIUM 1.5 L 1.6-2.6 Dec 08, 2021 [place] P4 GLU,BUN,CREAT,LYTES,CA Speci men Type: PLASMA 06:39 AM [facility] Comment: Testin g Performed on nVoq (405) SN:[id number] Ordering Provid er: ASHLY TODD Report Released Date/Time: Dec 07, 2021 10:32 AM Reporting Lab: [place] [facility] [address] [facility] [address] Performing Lab: [place] [facility] [address] [facility] [address] UREA NITROGEN 6 L 7-25 SODIUM 136 135-145 POTASSIUM 3.3 L 3.5-5.0 CHLORIDE 104 100-110 CARBON DIOXIDE 22 20-30 ANION GAP 10 4-16 GLUCOSE 133 H 65-100 CREATININE 0.76 0.5-1.5 CALCIUM 8.4 L 8.5-10.5 eGFR(CKD-EPI 2020) >90.0 >60 Dec 08, 2021 06:39 AM [facility] CBC PROFILE Sp ecimen Type: BLOOD No comment enter ed. Ordering Provid er: ASHLY TODD Report Released Date/Time: Dec 07, 2021 10:32 AM Reporting Lab: [facility] [address] [facility] [address] Performing Lab: [facility] [address] [facility] [address] WBC 8.4 4.5-11.0 RBC 4.75 4.23-5.66 HGB [...] ABSOLUTE NRBC 0.00 0-0 Dec 07, 2021 [facility] P4 GLU,BUN,CREAT,LYTES,CA Speci men Type: PLASMA 06:42 AM [facility] Comment: Tests performed on nVoq (405 SN:[id number] Ordering Provid er: PORFIRIO WALTERS Report Released Date/Time: Dec 06, 2021 06:57 PM Reporting Lab: [facility] [address] [facility] [address] Performing Lab: [facility] [address] [facility] [address] UREA NITROGEN 9 7-25 SODIUM 135 135-145 POTASSIUM 3.5 3.5-5.0 CHLORIDE 103 100-110 CARBON DIOXIDE 22 20-30 ANION GAP 10 4-16 GLUCOSE 92 65-100 CREATININE 0.73 0.5-1.5 CALCIUM 8.0 L 8.5-10.5 eGFR(CKD-EPI 2020) >90.0 >60 Dec 07, 2021 06:42 [facility] LIVER PROFILE Specimen Typ e: PLASMA AM [facility] Comment: Tests performed on nVoq (405) SN:[id number] Ordering Provid er: PORFIRIO WALTERS Report Released Date/Time: Dec 06, 2021 06:57 PM Reporting Lab: [facility] [address] [facility] [address] Performing Lab[facility] [address] [facility] [address] PROTEIN, TOTAL 5.7 L 6.0-8.5 ALBUMIN 2.4 L 3.2-5.0 BILIRUBIN, TOTAL 0.4 0.2-1.2 ALKALINE PHOSPHATASE 109 40-150 ALT(SGPT) 10 7-52 AST(SGOT) 15 5-34 FIB-4 SCORE 1.92 <2.67 Dec 07, 2021 06:42 AM [facility] CBC PROFILE Specimen Type: BLOOD [facility] No comment enter ed. Ordering Provid er: PORFIRIO WALTERS Report Released Date/Time: Dec 06, 2021 06:57 PM Reporting Lab: [facility] [address] [facility] [address] Performing Lab: [facility] [address] [facility] [address] WBC 5.7 4.5-11.0 RBC 4.15 L 4.23-5.66 [...] [facility] %) AUTOMATED Comment: Tests performed on nVoq (405) SN:[id number] Ordering Provid er: ASHLY TODD Report Released Date/Time: Dec 07, 2021 10:28 AM Reporting Lab: [place] [facility] [address] [facility] [address] Performing Lab: [place] [facility] [address] [facility] [address] RETICULOCYTES (%) AUTOMATED 1.23 0. 6-2.0 RETICULOCYTES (ABS) AUTOMATED 0.052 0.030-0.090 Dec 06, 2021 09:45 [place] MRSA SURVL NARES Specimen Ty pe: NARES PM [facility] DNA No comment enter ed. Ordering Provid er: ALVARO VARGHESE Report Released Date/Time: Dec 07, 2021 02:20 AM Reporting Lab: [place] [facility] [address] [facility] [address] Performing Lab: [place] [facility] [address] [facility] [address] MRSA SURVL NARES DNA NEGATIVE NEGATIVE Dec 06, 2021 06:00 [place] URINALYSIS W/REFLEX TO Speci men Type: URINE PM [facility] CULTURE No comment enter ed. Ordering Provid er: JELANI SÁNCHEZ Report Released Date/Time: Dec 06, 2021 11:57 AM Reporting Lab: [facility] [address] [facility] [address] Performing Lab: [facility] [address] [facility] [address] URINE COLOR Arlin YELLOW SPECIFIC GRAVITY 1.029 [...] 21, [place] Comment: https://www.cdc.gov/coronavirus/2019-ncov/cases-updates/variant- surveillance/variant-info.html The [employer] SARS CoV 2 [employer] Assay-GX is a next-generation sequencing (NGS) assa 2021 [facility] SEQUENCING y that determine s the complete genome sequence of the SARS-CoV-2 virus. The assay contains variant-tolerant primers to broaden and improve the coverage for variant detection and increase the sensitivity 12:00 [facility] PNL() of the panel to enable detection from lower viral titer samples. The assay is run on the [employer] Sequencer, which performs automated library preparation, sequencing, analysis, and reporting. PM The sequence an alysis includes determination of viral phylogenetic lineage by comparison to the reference strain Wuhan-Hu-1, GenBank: [id number]. Sequence determination may not be possible owing [...] and its performance characteristics determined by the [facility] Molecular Diagnostics Laboratory, which is certified under the Clinical Laboratory Improveme nt Amendments (C MARCO) as qualified to perform high complexity clinical laboratory testing. This test is validated for clinical use at [facility] and should not be regarded as investigational or for research. The FDA does not require this test to go through premarket FDA review, and therefore it has not been cleared or approved by the FDA. This report was reviewed and approved by the on-service pathologist. Ordering Provid er: JELANI SÁNCHEZ Report Released Date/Time: Dec 06, 2021 01:13 PM Reporting Lab: [facility] [address] [facility] [address] Performing Lab: [facility] [address] [id number] SARS-CoV-2 CLADE() 22C (OMICRON) SARS-CoV-2 LINEAGE() [id number] Dec 06, 2021 12:00 [facility] COVID-19 AG SCREEN Specimen Type: NASAL CAVITY PM [facility] PANEL BINAX(405) Comment: Testi ng Performed By: Mike Scott Ordering Provid er: JELANI SÁNCHEZ Report Released Date/Time: Dec 08, 2021 08:23 AM Reporting [facility] [address] [facility] [address] Performing Lab: [facility] [address] [facility] [address] COVID-19 AG SCRN(wrj BINAX) POSITIVE HH NE G Dec 06, 2021 12:00 PM [facility] LIVER PROFILE Sp ecimen Type: PLASMA Comment: Testin g Performed on [employer] Director (405) [id number] Ordering Provid er: JELANI SÁNCHEZ Report Released Date/Time: Dec 06, 2021 11:57 AM Reporting Lab: [facility] [address] [facility] [address] Performing Lab: [facility] [address] [facility] [id number] PROTEIN, TOTAL 6.6 6.0-8.5 ALBUMIN 2.8 L 3.2-5.0 BILIRUBIN, TOTAL 0.6 0.2-1.2 ALKALINE PHOSPHATASE 134 40-150 ALT(SGPT) 13 7-52 AST(SGOT) 18 5-34 FIB-4 SCORE 1.94 <2.67 Dec 06, 2021 12:00 PM [facility] TROPONIN II Sp ecimen Type: PLASMA Comment: Tests performed on [employer]am [employer] [employer] ([employer]) (405) [id number] Ordering Provid er: JELANI SÁNCHEZ Report Released Date/Time: Dec 06, 2021 11:57 AM Reporting Lab: [facility] [address] [facility] [address] Performing Lab: [facility] [address] [facility] [address] TROPONIN II 0.03 0.00-0.29 Dec 06, 2021 [facility] P[facility] GLU,BUN,CREAT,LYTES,CA Speci men Type: PLASMA 12:00 PM [facility] Comment: Testin g Performed on nVoq (405) SN:[id number] Ordering Provid er: JELANI SÁNCHEZ Report Released Date/Time: Dec 06, 2021 11:57 AM Reporting Lab: [facility] [address] [facility] [address] Performing Lab: [facility] [address] [facility] [address] UREA NITROGEN 13 7-25 SODIUM 138 135-145 POTASSIUM 3.8 3.5-5.0 CHLORIDE 103 100-110 CARBON DIOXIDE 23 20-30 ANION GAP 12 4-16 GLUCOSE 105 H 65-100 CREATININE 0.90 0.5-1.5 CALCIUM 8.7 8.5-10.5 eGFR(CKD-EPI 2020) >90.0 >60 Dec 06, 2021 12:00 PM [facility] BNP(P) Sp ecimen Type: PLASMA Comment: Tests performed on [employer] [place] [employer] ([employer]) (405) SN:[id number] Ordering Provid er: JELANI SÁNCHEZ Report Released Date/Time: Dec 06, 2021 11:57 AM Reporting Lab: [place] [facility] [address] [facility] [address] Performing Lab: [facility] [address] [facility] [address] BNP(P) 224.8 H 10-100 Dec 06, 2021 [facility] COVID-19+FLU/RSV DIAGNOSTIC Spe cimen Type: NASOPHARYNX 12:00 PM [facility] PANEL(405) Comment: Tests performed on [employer] (405) Critical results called to and read back by: ALESHIA WILKINSON RN 12/06/21 @ 1312 Ordering Provid er: JELANI SÁNCHEZ Report Released Date/Time: Dec 06, 2021 11:57 AM Reporting Lab: [facility] [address] [facility] [address] Performing Lab: [place] [facility] [address] [facility] [address] FLU A(PCR) NEGATIVE NEGATIVE FLU B(PCR) NEGATIVE NEGATIVE RSV(PCR) NEGATIVE NEGATIVE COVID-19([id number]) DETECTED HH NO T DETECTED Dec 06, 2021 12:00 PM [place] [facility] CBC PROFILE Sp ecimen Type: BLOOD No comment enter ed. Ordering Provid er: JELANI SÁNCHEZ Report Released Date/Time: Dec 06, 2021 11:57 AM Reporting Lab: [facility] [address] [facility] [address] Performing Lab: [facility] [address] [facility] [address] WBC 7.2 4.5-11.0 RBC 4.86 4.23-5.66 HGB [...] Tej dy Source Pressure Rate Mass Index Dec 06, 233.7 32 WHITE 2021 09:43 lb [facility] Dec 06, 98.2 F 91 134/59 16 /min 98 % 0 WHITE 2021 09:37 /min mm[Hg] [facility] Dec 06, 114 129/69 21 /min 97 % WHITE 2021 06:00 /min mm[Hg] [facility] Dec 06, 99 139/68 24 /min 96 % WHITE 2021 05:30 /min mm[Hg] [facility] Dec 06, 98.8 F 110 120/68 23 /min 94 % 0 [place] 2021 04:16 /min mm[Hg] [facility] Social History: Smoking Status (Most [...] place. Date/Time Smoking Status/Tobacco Use Comment [facility] Apr 01, 2020 01:16 PM [...] 1-7 YEARS AGO CAREY DOYLE [facility] May 25, 2016 11:53 PM QUIT TOBACCO USE IN PAST YEAR CAREY DOYLE [facility] May 23, 2016 06:57 PM QUIT TOBACCO USE > 7 YEARS AGO CAREY DOYLE [facility] May 19, 2016 03:55 PM QUIT TOBACCO USE IN PAST YEAR CAREY DOYLE [facility] May 19, 2016 10:29 AM QUIT TOBACCO USE 1-7 YEARS AGO CAREY DOYLE [facility] May 01, 2016 07:26 PM QUIT TOBACCO USE IN PAST YEAR CAREY DOYLE [facility] May 01, 2016 03:11 PM QUIT TOBACCO USE IN PAST YEAR CAREY DOYLE [facility] May 01, 2016 11:19 AM QUIT TOBACCO USE IN PAST YEAR CAREY DOYLE [facility] Mar 16, 2016 12:50 PM V1-PT DECLINES REF TO TOBACCO CAREY DOYLE [facility] CESS PRGM Mar 16, 2016 12:50 PM V1-PT THINKING ABOUT QUIT CAREY DOYLE [facility] TOBACCO USE Aug 12, 2015 08:48 AM CURRENT SMOKER CAREY Yates [facility] Radiology Reports: +/- 30 days of [...] the Encounter. The [facility]. Date/Time Radiology Report Provider Source Dec 13, 2021 12:57 PM MRI ABDOMEN W/WO CONTRAST: MARYELLEN LONG [place] MEEKLUCAS N [id number] -1950 [facility] Exm Date: DEC 13, 2021@12:57 Req Phys: ASHLY TODD Loc: OP Unknown/0 12-15-2021@13:20 Img Loc: MRI IMAGING (OOS) [facility] (Case [id number] COMPLETE) MRI ABDOMEN W/WO CONTRAST (M RI Detailed) CPT:15544 Reason for Study: further characterization of a [...] esophageal thickening and new lyphadenopathy REQUESTING MD: Ashly Todd PAGER: [phone] PHONE: [phone] Weight: 232.2 lb [105.32 kg] (12/12/2021 05:00) [...] patient will need to arrange for a hearse driver to take him/her home after the [...] 15, 2021 Date Verified: DEC 15, 2021 Land Leases And Rentals Manager E-Sig:/ES/MARYELLEN LONG Report: MRI ABDOMEN W/WO [...] MALIGNANCY Primary Interpreting Staff: Staff AMELIA THOMAS (Land Leases And Rentals Manager) / Dec 10, 2021 09:[address] ABDOMEN & PELVIS: [facility]EEK N [id number] -1950 [facility] Exm Date: DEC 10, 2021@09:30 Req Phys: ASHLY TODD E Josseline Loc: 1S MED/12-10@10:57 Img Loc: CT SCAN (OOS) Service: [facility] (Case [id number] COMPLETE) CT ABD & PELVIS WITHOUT CONT RAST (CT Detailed) CPT:06617 Reason for Study: 71 yo male with [...] INDEX - NO HEIGHTS FOUND Pager number: [phone] STAT orders MUST be call ed to RADIOLOGY [phone] to speak to the appropriate alarm technician. Report Status: Verified Date Reported: DEC 10, 2021 Date Verified: DEC 10, 2021 Land Leases And Rentals Manager E-Sig: Report: EXAM: CT abdomen and [...] spine. Unchanged minimal L4-L5 anterolisthesis. No suspicious tej ne lesions. Other: Unchanged small fat-containing bilateral [...] and portocaval lym ph nodes. READING PHYSICIAN: aRmone Munoz D.O. -[phone] 12/10/2021 10:55 EDT [facility] National Teleradiology Program [phone] (For Medical Practitioner Use Only ) [address], [facility] [address], [address] [place] [address] Attention Patients / Veterans: If you have ques tions or concerns about these test results, please contact your o rdering provider or primary care team. Primary Diagnostic Code: SIGNIFICANT ABNORMALIT Y, ATTN NEEDED Primary Interpreting Staff: RADIOLOGY,OUTSIDE SERVICE, Staff Physician / Dec 09, 2021 07:34 AM BASW (MODIFIED): JESSIE CHENEY [facility] [place] LUCAS MEEK N [id number] -1950 M [facility] Exm Date: DEC 09, 2021@07:34 Req Phys: ASHLY TODD Loc: 1S MED/12-09@11:26 Img Loc: XRAY (OOS) Service: [facility] (Case [id number] COMPLETE) BASW (MODIFIED) (EUNICE stephenson) CPT:34981 Contrast Media : Barium Reason for Study: dysphagia ?esophageal spasm Clinical History: Report Status: Verified Date Reported: DEC 09, 2021 Date Verified: DEC 09, 2021 Land Leases And Rentals Manager E-Sig:/ES/JESSIE CHENEY Report: BASW (MODIFIED) , [...] REQUIRED Primary Interpreting Staff: JESSIE CHENEY, RADIOLOGIST (Land Leases And Rentals Manager) /TLC Dec 06, 2021 12:[address] CHEST (INCLUDES ADRENALS): JESSIE [facility]ENEY [facility] LUCAS MEEK N [id number] -1950 [facility] Exm Date: DEC 06, 2021@12:59 Req Phys: JELANI SÁNCHEZ Pat Loc: [facility] ED DAYS M 1RD (Req'g Loc) Img Loc: CT SCAN (OOS) Service: Unknown (Case [id number] COMPLETE) CT THORAX W/O CONT (CT Detai led) CPT:01199 Reason for Study: Opacification right chest Clinical History: No contrast allergy BUN: 13 (12/06/21 12:00) CREATI: 0.90 (12/06/21 12:00) eGFR 05/16/21 09:43 52 L Weight: 232.6 lb [105.51 kg] (12/06/2021 11:40) BODY MASS INDEX - NO HEIGHTS FOUND Pager number: [phone] STAT orders MUST be called t o RADIOLOGY [phone] to speak to the appropriate alarm technician. Indications - Other: Opacification right chest, covid positive, lung cancer histo Report Status: Verified Date Reported: DEC 06, 2021 Date Verified: DEC 06, 2021 Land Leases And Rentals Manager E-Sig:/ES/JESSIE CHENEY Report: CT THORAX W/O [...] REQUIRED Primary Interpreting Staff: JESSIE CHENEY, RADIOLOGIST (Land Leases And Rentals Manager) Primary Interpreting Resident: PRINCE CHAMPION, Resident /BR Dec 06, 2021 11:58 AM CHEST SINGLE VIEW: JESSIE CHENEY DOUGLAS N [id number] -1950 M [facility] Exm Date: DEC 06, 2021@11:58 Req Phys: JELANI SÁNCHEZ Loc: [facility] ED DAYS M 1RD (Req'g Loc) Img Loc: XRAY (OOS) Service: Unknown (Case [id number] COMPLETE) CHEST SINGLE VIEW (RAD Detai led) CPT:01124 Proc Modifiers : PORTABLE EXAM Reason for Study: SOB, home covid test positive Clinical History: Report Status: Verified Date Reported: DEC 06, 2021 Date Verified: DEC 06, 2021 Land Leases And Rentals Manager E-Sig:/ES/JESSIE CHENEY Report: Exam type: Chest [...] REQUIRED Primary Interpreting Staff: JESSIE CHENEY, RADIOLOGIST (Abdifatah) /TLC Pathology Reports: +/- 30 days of [...] the Encounter. The data comes from all [facility] facilities. Date/Time Pathology Report Provider Source Jan 03, 2022 10:28 AM LR SURGICAL PATHOLOGY REPORT: STEFANY MILLER LOCAL TITLE: LR SURGICAL PATHOLOGY REPORT [facility] STANDARD TITLE: PATHOLOGY REPORT DATE OF NOTE: JAN 03, 2022@10:28:01 ENTRY DATE: JAN 03, 2022@10:28:01 AUTHOR: NIURKA MILLER EXP COSIGNER: URGENCY: STATUS: COMPLETED $APHDR Reporting Lab: [facility] [CLIA# [id number]] [address] [facility] [place] [address] - - - - - - [...] - - - - $TEXT Submitted by: ASHLY TODD Date obtained: Marizol rojas 2021 14:59 [...] automatically d ocumented from SURGERY package case #[id number] Field (#32) PRINCIPAL PRE-OP DIAGNOSIS, (#.72) OTHER [...] automatically d ocumented from SURGERY package case #[id number] Field (#34) PRINCIPAL POST-OP DIAG, (#.74) OTHER [...] Label: Lucas Meek Paperwork: Lucas Meek Cassette: [id number];..;KALYANI;.;548;[phone] Specimen is labeled: ES bx Received in formalin are several pieces of pale boyd and brown tissue, 1.2 x 0.7 cm in aggregate. Submitted entirely in 1 cassette [id number];..;KALYANI;.;405;[id number] SAW 12/15/2021 Microscopic exam: *+* MODIFIED REPORT *+* (Last modified: JAN 03, 2022@09:30:20 typed by NIURKA WADDELL) DIAGNOSIS: A. 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 Kendell long. TIARA Coombs was notified on 12/21/21. Modified on 01/03/22 to include report from [facility] stating that tumor is NEGATIVE for her2/ matheus amplification. The attending pathologist who signature mansoor ears on this report has reviewed all diagnostic slides and has edited t he gross and/or microscopic portion of this report in rendering the final pathologic diagnosis. [facility] [address] [address] CPT: 81241 /emely/ NIURKA Yeung MD Signed Jan 03, 2022@10:28 Performing Laboratory: Surgical Pathology Report Performed By: [facility] [place] [facility] [CLIA# [id number]] [address] [place] [address] $FTR - - - - - [...] - - LUCAS MEEK STANDARD FORM 515 ID:[id number] SEX:M :1950 AGE: 71 LOC: SDM END PCP: Ashly Todd /emely/ NIURKA Yeung MD Signed: 01/03/2022 10:28 Dec 21, 2021 11:46 AM LR SURGICAL PATHOLOGY RE[facility] TITLE: LR SURGICAL PATHOLOGY REPORT [facility] STANDARD TITLE: PATHOLOGY REPORT DATE OF NOTE: DEC 21, 2021@11:46:59 ENTRY DATE: DEC 21, 2021@11:46:59 AUTHOR: NIURKA MILLER EXP COSIGNER: URGENCY: STATUS: COMPLETED $APHDR Reporting Lab: [facility] [CLIA# [id number]] [address] [place] [address] - - - - - - [...] - - - - $TEXT Submitted by: ASHLY TODD Date obtained: Marizol rojas 2021 14:59 [...] automatically d ocumented from SURGERY package case #[id number] Field (#32) PRINCIPAL PRE-OP DIAGNOSIS, (#.72) OTHER [...] automatically d ocumented from SURGERY package case #[id number] Field (#34) PRINCIPAL POST-OP DIAG, (#.74) OTHER [...] - - - GROSS DESCRIPTION: Name Label: Meek Lucas Rojas Paperwork: Lucas Meek Cassette: [id number];..;KALYANI;.;405;[phone] Specimen is labeled: ES bx Received in formalin are several pieces of pale boyd and brown tissue, 1.2 x 0.7 cm in aggregate. Submitted entirely in 1 cassette [id number];..;KALYANI;.;405;[id number] SAW 12/15/2021 Microscopic exam: DIAGNOSIS: A. 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 Kendell long. TIARA Coombs was notified on 12/21/21. The attending pathologist who signature mansoor ears on this report has reviewed all diagnostic slides and has edited t he gross and/or microscopic portion of this report in rendering the final pathologic diagnosis. [address] [address] CPT: 98643 /emely/ NIURKA Yeung MD Signed Dec 21, 2021@11:46 Performing Laboratory: Surgical Pathology Report Performed By: [place] [facility] [CLIA# [id number]] [address] [place] [address] $FTR - - - - - [...] - - LUCAS MEEK STANDARD FORM 515 ID:[id number] SEX:M :1950 AGE: 71 LOC: SDM END PCP: Ashly Todd /charmaine Yeung MD Signed: 12/21/2021 11:46 Dec 06, 2021 03:30 PM LR MICROBIOLOGY REPORT: [facility] Reporting Lab: [facility] [CLIA# [id number]] [address] [place] [address] Accession [UID]: [id number] [[id number]] Receiv ed: Dec 06, 2021@16:14 Collection sample: BLOOD CUL T BOTTLE(NIRMAL/AERO)Collection date: Dec 06, 2021 15:30 Site/Specimen: BLOOD Provider: JELANI SÁNCHEZ Comment on specimen: LAC Test(s) ordered: BLOOD CULTURE ANAEROBI C....... completed: Dec 12, 2021 06:18 * BACTERIOLOGY FINAL REPORT => Dec 12, 2021 06:1 8 TECH CODE: [id number] Bacteriology Remark(s): NO GROWTH IN 5 DAYS =--=--=--=--=--=--=--=--=--=--=--=--=--= --=--=--=--=--=--=--=--=--=--=--=--=-- Performing Laboratory: Bacteriology Report Performed By: [facility] [CLIA# [id number]] [address] [place] [address] Dec 06, 2021 03:30 PM LR MICROBIOLOGY REPORT: [facility] Reporting Lab: [facility] [CLIA# [id number]] [address] [place] [address] Accession [UID]: [id number] [[id number]] Receiv ed: Dec 06, 2021@16:14 Collection sample: BLOOD CUL T BOTTLE(NIRMAL/AERO)Collection date: Dec 06, 2021 15:30 Site/Specimen: BLOOD Provider: JELANI SÁNCHEZ Comment on specimen: LAC Test(s) ordered: BLOOD CULTURE AEROBIC. ........ completed: Dec 12, 2021 06:17 * BACTERIOLOGY FINAL REPORT => Dec 12, 2021 06:1 7 TECH CODE: [id number] Bacteriology Remark(s): NO GROWTH IN 5 DAYS =--=--=--=--=--=--=--=--=--=--=--=--=--= --=--=--=--=--=--=--=--=--=--=--=--=-- Performing Laboratory: Bacteriology Report Performed By: [facility] [CLIA# [id number]] [address] [place] [address] Encounter Notes: All associated encounter notes This section contains the clinical notes associated to the Encounter. Date/Time Encounter Note(s) Provider Source Dec 06, 2021 04:47 INFECTIOUS DISEASE CONSULT: FILI JONES LOCAL TITLE: CONSULT: Infectious Disease [facility] STANDARD TITLE: INFECTIOUS DISEASE CONSULT DATE OF NOTE: DEC 06, 2021@16:47 ENTRY DATE: DEC 06, 2021@16:47:41 AUTHOR: FILI JONES EXP COSIGNER: URGENCY: STATUS: COMPLETED ID Note 71 yo man with history of resected lung cancer u ndergoing recent work-up for esphophageal complaints presents with nausea and weakness. On November 15 reported to his PCP: Swallowi ng bothering a little bit now. Hurting pain in the esophagus. Usually after eating lowe r chest pain. Reports that 10 days ago he tested positive for COVID-19. At that time he had cough and URI symptoms. Came to the ED with SOB, nausea, fatigue. He is vaccinated and boosted. In ED he had normal O2 saturation on RA. BP: 108/92 (12/06/2021 11:40) Pulse: 91 (12/06/2021 11:40) Temp: 98.5 F [36.9 C] (12/06/2021 11:40) Resp: 20 (12/06/2021 11:40) Data: Unremarkable. No leukocytosis but slight L shft with 82% polys CT reviewed in detail - there is evidence of asp iration in the R mainstem and there are parenchymal abnormalities dist al to that. The L lung has no evidence of GGOs or infiltrate. A/P This is a patient with a recent COVID-19 inf ection with onset approx. 10 days ago who presents now with fatigue, nausea, weakness with findings suggestive of aspiration on the CT chest. I thin k he lacks evidence of an aspiration pneumonia or absc ess (AF, normal WBC except for mild L shift) at this time but some would choose to treat (or more precisely provide prophylaxis) to help prevent aspiration pneu monia in this more fragile host. Such a strategy is reasonable here. As for a complication of COVID-19, there is no evidence of COVID PNA on the CT scan and no O2 requirement that would terry ggest the need for steroids. Since the cycle threshold is quite low and he is at increa sed risk for complications, I would recommend remdesivir for a 5 day course. - Ceftriaxone 2 g/day + metronidazole 500 mg IV/ PO q 8 - Remdesivir 200 mg IV once and 100 mg IV qd x 4 more days - Respiratory isolation - Speech and swallow evaluation /es/ FILI JONES Infectious Diseases Signed: 12/06/2021 16:51 Dec 06, 2021 01:48 NURSING EMERGENCY DEPT NOTE: PATRICIA SCOTT T LOCAL TITLE: ED RN NOTE/EMERGENCY DEPARTMENT NO TE [facility] STANDARD TITLE: NURSING EMERGENCY DEPT NOTE DATE OF NOTE: DEC 06, 2021@13:48 ENTRY DATE: DEC 06, 2021@13:48:10 AUTHOR: PATRICIA SCOTT EXP COSIGNER: URGENCY: STATUS: COMPLETED ED RN NOTE/EMERGENCY DEPARTMENT NOTE Has CORA MTZ Full ED Note Documentation System Review: * Falls Patient greater than 70 years old? Yes ----- Falls - Stopping Elderly Accidents, s & Injuries (STEADI) ----- Perform Screen Have you fallen in the past year? Yes How many times have you fallen? 1 Were you inju red? yes Do you feel unsteady when standing or walking? No Do you worry about falling? Yes Did the patient answer yes to any of the above questions? Yes STEADI Fall Risk Screen Positive To order PHYSICAL THERAPY-FALLS CLINIC OUTPT *Pain Assessment Pain Details: Level of pain: 0 Location of pain: Pain Description: Medications received: Response to meds: Other therapies utilized to relieve pain: rest, positioning Comment: Effectiveness: 0/10 Neurological: Alert: Yes Oriented to: person: Yes place: Yes time: Yes situation: Yes PERRLA: RIGHT Pupil Size: LEFT Pupil Size: Speech clear: Yes Facial symmetry: Yes NARAYNAAN: History of head trauma? When? Respiratory: Lung Sounds: Left: Right: Unlabored: Yes Cough: Yes Rate/Rhythm: Cardiac: Chest Pain: No Edema: No JVD: No Pulse: Heart Rate/Rhythm: KUN (Angina/n-stemi) score: GI: ABD: Soft: Tender: Bowel sounds: Incontinent: Last BM: N/V/D: Yes +n-v-d Treatment/Diagnostic Testing: IV Catheters Peripheral Site: RAC Type: 18 g PIV inserted by Minerva Vu RN LABEL: YES IV inserted this shift, Dressing intact, Site w ithout redness, swelling and/or drainage Disposition: Admitted to inpatient unit 1330 Pt arrived c/o nausea, SOB, pt is known covid + and pt has a known history of lung cancer. Pt was brought to room 5 after t tommie where he was placed on the complete continuous monitoring analyst with c ontinuous pulse oximetry and automatic NIBP monitoring. IV access obt ained and bloodwork drawn, LIQUOR BRIDGE OPERATOR HELPER swab for a Covid PCR test was obtained, and a 12- lead EKG was also obtained. A BinaxNOW rapid Covid antigen test was also obtained which was positive. Comfort measures are HOB elevated, pillow, blanket. Call padilla wit hin reach. Pt to CT scan transported by [facility]. 1351 Pt is back in room, drinking water. 1609 Two sets of blood cultures were drawn prior to starting antibiotics. Medical admitting team at bedside. 1626 Report to Minerva Vu RN Time patient discharged from ED: To Be Determin ed /emely/ PATRICIA SCOTT Registered Nurse Signed: 12/06/2021 16:26 12/06/2021 ADDENDUM STATUS: COMPLETED 1630 Disregard transfer of care. T/W remaining kesha obrien RN for this shift for now. A low-carb meal tray has been ordered for t he vet. 1800 Pt has been medicated as ordered. Provided low-carb meal tray with a chocolate Glucerna for the vet. 1814 Pt urinated 150 mLs of dark clear urine. A specimen was collected and sent to the lab. 1902 Report to Yudelka Clements RN. /emely/ PATRICIA SCOTT Registered Nurse Signed: 12/06/2021 19:03 12/06/2021 ADDENDUM STATUS: COMPLETED 1914, pt report received, pt intordution done, pt in room resting on his right side in position of comfort. pt reports having no copmplaints at this time and he is pleased with plan of care for admi blanca. pt reports no SOB, but does have CHENG when getting up to the B R to void. pt skin is P/W/D, call padilla in reach and pt will alert staff to any needs. 2029 pt resting in room awaiting bed asighnment. 2114 report givne to MADISYN Pinto. pt transfered to unit via w/c with SALES PROMOTER. AOD cleared, pt pleased with plan of care. /emely/ RAMIREZ CLEMENTS Registered Nurse Signed: 12/06/2021 21:29 Dec 06, 2021 01:45 EMERGENCY DEPT NOTE: JELANI SÁNCHEZ [place] LOCAL TITLE: ED MD Note/Emergency Department Ph ysician Note [facility] STANDARD TITLE: EMERGENCY DEPT NOTE DATE OF NOTE: DEC 06, 2021@13:45 ENTRY DATE: DEC 06, 2021@13:45:32 AUTHOR: JELANI SÁNCHEZ EXP COSIGNER: URGENCY: STATUS: COMPLETED CHIEF COMPLAINT: Nausea, weight loss, covid posi tive HISTORY and PHYSICAL EXAMINATION: HPI: 71 yr old female with the complaint of naus ea over 6 months, poor appetite, and about 100 pound weight loss over t his time. The patient reports that he developed a cough, runny nose, and feeli ng weak about 10 days ago. He states that he took a home covid test 10 days ago and it was positive. He came here today because he just is feeling very weak. The patient denies fever, chills. He has had nausea, and weakness, and is just not feeling well. He reports that he had lung cancer back in 2016. He states that he was given radiation and chemo, a nd since then has had q6 month ct scans to follow . The patient denies leg pain, swelling. He has no t been. ROS: Constitutional: neg fever Eyes: ENT: Lungs: positive cough, some SOB Heart: neg chest pain Neurologic: GI: positive nausea and weight loss : Skin: neg rash MSK: Endocrine: Hem/Lymph/Imm: Psych: All/Imm: [X] Other than pertinent positives and negatives noted above and in HPI, all other systems on complete review are negative. PMH: Primary squamous cell carcinoma of skin Ost eoarthritis ([facility] [id number]) Psoriasis ([facility] [id number]) Spinal stenosis of lumba r region ([facility] [id number]) Low back pain ([facility] [id number]) Joint pain ([facility] [id number]) Primary malignant neoplasm of lung ([facility] Morbid o besity ([facility] [id number]) Benign essential hypertension ([facility] [id number] obstructive lung disease ([facility] [id number]) Meds: Active and Recently Outpat ient Medications (including Supplies): Active Outpatient Medications Status 1) [...] GRA MS DAILY OVER ALL JOINTS. 6) LOSARTAN 25MG TAB TAKE ONE-HALF TABLET BY HANNAH TH EVERY ACTIVE DAY FOR BLOOD PRESSURE/HEART 7) METFORMIN HCL 500MG 24HR SA TAB TAKE ONE TABL ET BY ACTIVE MOUTH EVERY DAY WITH A MEAL FOR DIABETES 8) OLODATEROL/TIOTROP 2.5MCG/ACTUAT 60D INH INHA LE 2 ACTIVE PUFFS BY MOUTH EVERY DAY FOR BREATHING 9) OMEPRAZOLE 20MG EC CAP TAKE ONE CAPSULE BY MO UTH ACTIVE TWICE A DAY 30 MINUTES BEFORE MEALS FOR STOMACH ACID (TAKE HALF-HOUR BEFORE A MEAL) 10) SERTRALINE HCL 50MG TAB TAKE THREE TABLETS [...] SCALP, LET SIT 10 MIN AND RINSE 12 Total Medications Allergies: LISINOPRIL PSH: neg SH: Tobacco: neg Alcohol: neg Illicit drugs: FH: neg Physical Exam: Vitals: DATE/TIME TEMP PULSE RESP BP PAIN WEIGHT 12/06/21 @ 1326 BP: 139/60 (12/06/2021 13:00) Pulse: 108 (12/06/2021 13:00) Temp: 97.8 F [36.6 C] (12/06/2021 13:00) Resp: 24 (12/06/2021 13:00) HT(in): 72 in [182.9 cm] (03/05/2019 11:48) WT(lbs):232.6 lb [105.51 kg] (12/06/2021 11:40) 12/06/21 @ 1300 PULSE OXIMETRY: 97 0 General/Constitutional: alert, cooperative Eyes: EOMI ENT: NC/AT Lungs: CTA Heart: RRR without murmur or patsy. Neurologic: CN 2-12 grossly intact, strength 5/5 , sensory grossly intact. GI: soft, non tender : Skin: warm and dry MSK: no leg swelling or pain Hem/Lymph/Imm: Psych: alert, cooperative. DIAGNOSTIC INFORMATION: Labs:BNP(P): 224.8 H WBC: 7.2 RBC: 4.86 HGB: 12.4 L HCT: 39.6 MCV: 81.5 L MCH: 25.5 L MCHC: 31.3 RDW: 16.2 H PLT: 180 MPV: 9.1 L ALTERNATE LYMPHS: 9.7 L JAMAR MONO %: 7.0 JAMAR GRAN %: 82.1 H JAMAR BASO %: 0.3 JAMAR EOS %: 0.1 L IMMATURE GRANULOCYTES: 0.8 H NRBC: 0.0 ABS I.1 H RDW-SD: 47.8 ABSOLUTE BASO: 0.0 L ABSOLUTE EOS: 0.0 L ABSOLUTE LYMPH: 0.7 L ABSOLUTE MONO: 0.5 ABSOLUTE NEUT: 5.9 ABSOLUTE NRBC: 0.00 TROPONIN II: 0.03 GLUCOSE: 105 H UREA NITROGEN: 13 CREATININE: 0.90 SODIUM: 138 POTASSIUM: 3.8 CHLORIDE: 103 CO2: 23 PROTEIN,TOTAL: 6.6 ALBUMIN: 2.8 L BILIRUBIN,TOTAL: 0.6 ANION GAP: 12 ASTRA CA: 8.7 ALKALINE PHOSPHATASE (251977): 134 ALT (011801): 13 AST (137897): 18 FIB4 SCORE: 1.94 eGFR CKD-EPI 2020: >90.0 FLU-A: NEGATIVE FLU-B: NEGATIVE RSV: NEGATIVE SARS COV2 : DETECTED H* EKG: CXR: Clinical History: Report Status: Verified Date Reported: DEC 06, 2021 Date Verified: DEC 06, 2021 Land Leases And Rentals Manager E-Sig:/ES/JESSIE CHENEY Report: Exam type: Chest [...] REQUIRED Primary Interpreting Staff: JESSIE CHENEY, RADIOLOGIST (Land Leases And Rentals Manager) /TLC IMPRESSION:Covid peumonia, right hilar mass MANAGEMENT AND CLINICAL COURSE: 71 yr old male with recurrence of right hilar m ass, covid pneumonia, and possible aspiration pneumonia. He has had signif icant weight loss as well. I have spoken with Dr Jones and also Dr Luz daniels, and they recommend admission to medicine. Zosyn ordered, and also Remdesivir per Dr Jones. Case discussed with Hospitalists for admission. PERSONAL PROTECTIVE EQUIPMENT (PPE): Patient was in mask on arrival, MD/PA/LIQUOR BRIDGE OPERATOR HELPER used PPE during every encounter , Gown, Gloves, Other: PAPR PATIENT INSTRUCTIONS: see the Emergency Departme nt Discharge Instructions Note DISPOSITION: [ ] DISCHARGED [ ] TRANSFERRED TO: [ ] LEFT AGAINST MEDICAL ADVICE [ ] ADMITTED TO: CONDITION: [ ] IMPROVED [ ] SATISFACTORY [ ] UNCHANGED Police were called for intervention/observation during this visit: No [x ] I have added the Primar y Care Provider as an additional signer to this note /es/ JELANI SÁNCHEZ MD Signed: 12/06/2021 18:07 Dec 06, 2021 12:14 INFECTIOUS DISEASE NOTE: PATRICIA SCOTT [facility] LOCAL TITLE: COVID-19 POC ANTIGEN RESULTS NOTE [facility] STANDARD TITLE: INFECTIOUS DISEASE NOTE DATE OF NOTE: DEC 06, 2021@12:14 ENTRY DATE: DEC 06, 2021@12:14:58 AUTHOR: PATRICIA SCOTT EXP COSIGNER: URGENCY: STATUS: COMPLETED COVID-19 Point of Care (POC) Antigen Results POC COVID-19 Antigen testing done for a symptoma tic patient. POSITIVE result ++Patient notified this is considered definitiv e testing.++ Patient with positive COVID-19 antigen result w as advised to: - Stay at home except to get medical care that cannot be provided by a telephone or video visit. - Get rest and stay hydrated. - Call ahead before visiting your doctor and te ll them that you have or may have COVID-19. - Wear a facemask if you are around others. - Cover your coughs and sneezes. - Clean your hands often. - Keep a six-foot distance from others in your home, ideally in a separate room. Isolate in a private room with a separate bathroom, if available. - Avoid sharing household items. - Clean and disinfect high touch surfaces daily , ideally with a product that kills cold and flu viruses. - If symptoms worsen, call 911. - Contact [facility] nurse telephone hotline for any ne w or concerning symptoms at X [phone]. /emely/ PATRICIA SCOTT Registered Nurse Signed: 12/06/2021 12:15 Dec 06, 2021 11:44 EMERGENCY DEPT TRIAGE NOTE: SAMRA GERONIMO [facility] [place] [facility] LOCAL TITLE: EMERGENCY DEPT TRIAGE NOTE [facility] STANDARD TITLE: EMERGENCY DEPT TRIAGE NOTE DATE OF NOTE: DEC 06, 2021@11:44 ENTRY DATE: DEC 06, 2021@11:44:55 AUTHOR: SAMRA GERONIMO EXP COSIGNER: URGENCY: STATUS: COMPLETED Emergency Department/Urgent Care Center Triage Patient age: 71 Sex: MALE On arrival patient was: WHEELCHAIR Location Patient came from: home with Stephanie Meek Patient phone number: Preferred Name: Pronouns: He/Him Have you traveled recently No Allergies: LISINOPRIL Subjective/Chief Complaint: Acute on chronic nausea and SOB. Pt repo rts on-going nausea relating to 100lbs weight loss over 6 months to 1 year and SOB related to lung cancer. Pt reports these symptoms became worse approximately 10 day s ago when pt tested positive for COVID-19 on a home test. Pt again tested pos itive last noc. Pt denies vomiting. Reports chronic diarrhea that is not d ifferent/worse than usual. Objective: A+Ox4, 71yo, male pt wheeled into ED for above C C. Pt in NAD. The patient is not a fall risk. Vital Signs * BP: 108/92 (12/06/2021 11:40) Pulse: 91 (12/06/2021 11:40) Temp: 98.5 F [36.9 C] (12/06/2021 11:40) Resp: 20 (12/06/2021 11:40) HT(in): 72 in [182.9 cm] (03/05/2019 11:48) WT(lbs):232.6 lb [105.51 kg] (12/06/2021 11:40) 12/06/21 @ 1140 PULSE OXIMETRY: 97 Pain: 0 (12/06/2021 11:40) Emergency Severity Index (NICOL) level Level 3 Current Medications: Active Outpatient Medications (excluding Supplie s): Active [...] GRA MS DAILY OVER ALL JOINTS. 6) LOSARTAN 25MG TAB TAKE ONE-HALF TABLET BY HANNAH TH EVERY ACTIVE DAY FOR BLOOD PRESSURE/HEART 7) METFORMIN HCL 500MG 24HR SA TAB TAKE ONE TABL ET BY ACTIVE MOUTH EVERY DAY WITH A MEAL FOR DIABETES 8) OLODATEROL/TIOTROP 2.5MCG/ACTUAT 60D INH INHA LE 2 ACTIVE PUFFS BY MOUTH EVERY DAY FOR BREATHING 9) OMEPRAZOLE 20MG EC CAP TAKE ONE CAPSULE BY MO UTH ACTIVE TWICE A DAY 30 MINUTES BEFORE MEALS FOR STOMACH ACID (TAKE HALF-HOUR BEFORE A MEAL) 10) SERTRALINE HCL 50MG TAB TAKE THREE TABLETS B Y MOUTH ACTIVE EVERY DAY FOR DEPRESSION OR ANXIETY Current Problems: Active problems - Computerized Problem List is t he source for the followin. 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 Osteoarthritis 3. Psoriasis 4. Spinal stenosis of lumbar region 5. Low back pain 6. Joint pain 7. Primary malignant neoplasm of lung 8. Morbid obesity 9. Benign essential hypertension 10. Chronic obstructive lung disease Coronavirus Disease 2019 (COVID-19) Screen The patient was asked if in the last 14 days the y have had new onset of any COVID-19 symptoms. They report the following: Nausea Shortness of Breath (Dyspnea) Within the past 14 days, the patient reports no exposure to someone with a febrile/respiratory illness or someone with a kn own or suspected case of COVID-19 (within 6 feet for > 15 minutes). Result: Patient has a positive symptom or exposure and requires further evaluation. Nurse/Provider/Other notified: Mike Scott Date of the earliest symptom: Date: November 26, 2021 Suicide Screen: Door Suicide Severity Rating Scale (C-SSRS) screener 1. Over the past month, have you wished you wer e or wished you could go to sleep and not wake up? No 2. Over the past month, have you had an y actual thoughts of killing yourself? No 3. Over the past month, have you been thinking about how you might do this? Response not required due to responses to other questions. 4. Over the past month, have you had th yari thoughts and had some intention of acting on [...] or prepared to do anything to end your life (for e xample, collected pills, obtained a gun, gave away valuables, went to th e roof but didn't jump)? No 8. If YES, was this within the past 3 months? Response not required due to responses to other questions. Sepsis Screening *SUSPECTED INFECTION No How often did you have a drink containing alcoh ol in the past year? Perform AUDIT-C An alcohol screening test (AUDIT-C) was negativ [...] required due to responses to other questions. Have you smoke or use tobacco products in the la st 30 days? Patient reports quitting smoking/tobacco use mo re than 7 years ago. Type, amount, quite date: quit smoking 2005 Drug use: No How much per day? Any recent injuries ? No Patient Disposition: Pt wheeled to ED bed 5. Pt able to self-transfer to bed. 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
--- OUTSIDE RECORDS SUMMARY | 2022-01-19 08:13 | XMS_ITS | Encounter Summary ---
:1950 Author Organization Department [facility] Address [address] [place] [id number] Support Name Relationship Address Phone YUSRA MEEK Unavailable [address] [place] [facility] [place] [place] [address] YUSRA MEEK Unavailable [address] - [place] [facility] [place] [place] [address] CLAY MOSLEY Unavailable Unavailable SJ SANTACRUZ Unavailable [...] MEDICARE MEDICARE PART Jun 18, PART A [id number] KALYANI PATIENT (WNR) (M) A 2016 13A 1 UGLAS MEDICARE MEDICARE PART Jun 18, PART B [id number] MEEK DO PATIENT (WNR) (M) B 2017 13A 1 UGLAS MEDICARE MEDICARE PART Jun 18, PART B [id number] KALYANIDO PATIENT (WNR) (M) B 2017 VH81 2 UGLAS MEDICARE MEDICARE PART Jun 18, PART A [id number] KALYANIDO PATIENT (WNR) (M) A 2017 VH81 2 LAS UNITED MEDICARE MCR(W Jun 18 [id number] Luz MEEK PATIENT HEALTHCARE ADVANTAGE NR) 2021 37 0 [facility] (WNR) Selected Encounter This section includes the information on record at [place] for the Encounter. Date/Time Encounter Type Encounter Description Reason Provider Source Nov 26, 2021 12:00 Outpatient Encounter EVENT (HISTORICAL) AM IHE Encounter Template Text not used by CO Plan of Treatment: Future Appointments (+ 6 months) and Future Tests (+/- 45 days) The Plan of Treatment section includes future care activities for the patient [facility] This section includes future appointments and future orders which are active, pending orscheduled.Future Appointments This section includes appointments that were scheduled to occur 6 months from the date of the Encounter, up to a maximum of 20 appointments. The data comes from all [place] treatment [facility]. Appointment Date/Time Appointment Type Appointment Facili ty Name Dec 01, 2021 10:30 AM [facility] Dec 06, 2021 11:40 AM [place] [facility] Dec 21, 2021 08:00 AM [place] [facility] Jan 06, 2022 02:00 PM [place] [facility] Jan 10, 2022 11:30 AM [facility] Jan 24, 2022 08:00 AM [place] [facility] Feb 21, 2022 10:00 AM [facility] [place] [facility] Mar 21, 2022 10:30 AM [facility] Active, Pending, and Scheduled Orders This section includes a listing of several types of active, pending, and scheduled orders, including clinic medications orders, diagnostic test orders, procedure orders and consult orders; where the start date of the order is 45 days before the date of the Encounter or 45 days after the date of the Encounter. The data comes from all [facility]. Test Date/Time Test Type Test Details Facility Name October 31, 2021 07:37 AM Consult Order COMMUNITY CARE-EGD [facility] Cons Special Weapons Unit Officer's Choice November 15, 2021 10:37 AM Consult Order [facility] CARE-PODIATRY Cons Special Weapons Unit Officer's Choice Dec 06, 2021 12:52 PM [place]acy [place] Infusion Order [facility] Dec 06, 2021 03:24 PM [place]acy [place] [facility] Dec 06, 2021 03:40 PM [place] [facility] Dec 15, 2021 08:41 AM Consult Order SPEECH PATHOLOGY [place] OUT[place] Cons [facility] Special Weapons Unit Officer's Choice Lab Results: +/- 30 days of [...] Reference Range Comment Dec 15, 2021 [facility] P4 GLU,BUN,CREAT,LYTES,CA Speci men Type: PLASMA 06:43 AM [facility] Comment: Tests performed on Conversion Innovations (405) SN:[id number] Ordering Provid er: ISATU TODD Report Released Date/Time: Dec 11, 2021 07:42 AM Reporting Lab: [facility] [address] [facility] [address] Performing Lab: [facility] [address] [facility] [address] UREA NITROGEN 9 7-25 SODIUM 137 135-145 POTASSIUM 3.8 3.5-5.0 CHLORIDE 105 100-110 CARBON DIOXIDE 26 20-30 ANION GAP 6 4-16 GLUCOSE 102 H 65-100 CREATININE 0.64 0.5-1.5 CALCIUM 8.1 L 8.5-10.5 eGFR(CKD-EPI 2020) >90.0 >60 Dec 15, 2021 06:43 AM [facility] CBC PROFILE Sp ecimen Type: BLOOD No comment enter ed. Ordering Provid er: ISATU TODD Report Released Date/Time: Dec 10, 2021 07:22 AM Reporting Lab: [facility] [address] [facility] [address] Performing Lab: [facility] [address] [facility] [address] WBC 5.7 4.5-11.0 RBC 4.22 L 4.23-5.66 [...] ABSOLUTE NRBC 0.00 0-0 Dec 14, 2021 [facility] CYTOGENETIC Specimen Type: ESOPHAGUS 02:59 PM [facility] Comment: ~For T est: CYTOGENETIC FISH([facility]) ~FISH HER 2 NUE, FFPE See full report in [employer] Image display viewer/tab#LAB-Reference Ordering Provid er: NIURKA MILLER Report Released Date/Time: Dec 21, 2021 12:11 PM Reporting [facility]: [facility] [address] [facility] [address] Performing Lab: [facility] CYTOGENETIC FISH([facility]) comment Dec 14, 2021 [facility] P4 GLU,BUN,CREAT,LYTES,CA Speci men Type: PLASMA 06:27 AM [facility] Comment: Tests performed on Conversion Innovations (405) SN:[id number] Ordering Provid er: ISATU TODD Report Released Date/Time: Dec 11, 2021 07:42 AM Reporting Lab: [facility] [address] [facility] [address] Performing Lab: [facility] [address] [facility] [address] UREA NITROGEN 10 7-25 SODIUM 137 135-145 [...] 2021 07:22 AM Reporting Lab: [facility] [address] [facility] [address] Performing Lab: [facility] [address] [facility] [address] WBC 6.0 4.5-11.0 RBC 4.29 4.23-5.66 HGB [...] NRBC 0.00 0-0 Dec 13, 2021 [facility] P4 GLU,BUN,CREAT,LYTES,CA Speci men Type: PLASMA 06:34 AM [facility] Comment: Tests performed on Conversion Innovations (405) SN:[id number] Ordering Provid er: ISATU TODD Report Released Date/Time: Dec 11, 2021 07:42 AM Reporting Lab: [facility] [address] [facility] [address] Performing Lab: [facility] [address] [facility] [address] UREA NITROGEN 12 7-25 SODIUM 136 135-145 [...] Reporting Lab: [facility] [address] [facility] [address] Performing Lab: [facility] [address] [facility] [address] WBC 5.6 4.5-11.0 RBC 4.28 4.23-5.66 HGB [...] ABSOLUTE NRBC 0.00 0-0 Dec 12, 2021 [facility] P4 GLU,BUN,CREAT,LYTES,CA Speci men Type: PLASMA 06:21 AM [facility] Comment: Tests performed on Conversion Innovations (405) SN:[id number] Ordering Provid er: ISATU TODD Report Released Date/Time: Dec 11, 2021 07:42 AM Reporting Lab: [facility] [address] [facility] [address] Performing Lab: [facility] [address] [facility] [address] UREA NITROGEN 11 7-25 SODIUM 139 135-145 [...] Reporting Lab: [facility] [address] [facility] [address] Performing Lab: [facility] [address] [facility] [address] WBC 5.5 4.5-11.0 RBC 4.37 4.23-5.66 HGB [...] Dec 12, 2021 06:00 AM [place] [employer] MAGNESIUM Sp ecimen Type: PLASMA Comment: Testin g Performed on Conversion Innovations (405) SN:[id number] Ordering Provid er: ISATU TODD Report Released Date/Time: Dec 12, 2021 08:24 AM Reporting Lab: [facility] [address] [facility] [address] Performing Lab: [facility] [address] [facility] [address] MAGNESIUM 1.8 1.6-2.6 Dec 12, 2021 06:00 AM [place] [employer] [facility] PHOSPHORUS Sp ecimen Type: PLASMA Comment: Testin g Performed on Conversion Innovations (405) SN:[id number] Ordering Provid er: ISATU TODD Report Released Date/Time: Dec 12, 2021 08:24 AM Reporting Lab: [place] [employer] [address] [facility] [address] Performing Lab: [facility] [address] [facility] [address] PHOSPHORUS 3.1 2.5-5.0 Dec 11, 2021 06:15 AM [place] [employer] [facility] ELECTROLYTES Sp ecimen Type: PLASMA Comment: Tests performed on Conversion Innovations (405) SN:[id number] Ordering Provid er: ISATU TODD Report Released Date/Time: Dec 10, 2021 07:22 AM Reporting Lab: [place] [employer] [address] [facility] [address] Performing Lab: [facility] [address] [facility] [address] SODIUM 137 135-145 POTASSIUM 4.3 3.5-5.0 CHLORIDE 108 100-110 CARBON DIOXIDE 20 20-30 ANION GAP 9 4-16 Dec 11, 2021 06:15 AM [facility] CBC PROFILE Sp ecimen Type: BLOOD Comment: Result s checked Ordering Provid er: ISATU TODD Report Released Date/Time: Dec 10, 2021 07:22 AM Reporting Lab: [facility] [address] [facility] [address] Performing Lab: [facility] [address] [facility] [address] WBC 5.8 4.5-11.0 RBC 4.37 4.23-5.66 HGB [...] 0.00 0-0 Dec 11, 2021 06:00 AM [facility] PHOSPHORUS Sp ecimen Type: PLASMA Comment: Tests performed on Conversion Innovations (018) SN:[id number] Results checked Ordering Provid er: ISATU TODD Report Released Date/Time: Dec 11, 2021 07:44 AM Reporting Lab: [facility] [address] [facility] [address] Performing Lab: [facility] [address] [facility] [address] PHOSPHORUS 3.0 2.5-5.0 Dec 10, 2021 08:05 AM [place] [facility] MAGNESIUM Sp ecimen Type: PLASMA Comment: [place] [id number] on Dec 10, 2021@08:31 Tests performed on Conversion Innovations (405) SN:[id number] Ordering Provid er: ISATU TODD Report Released Date/Time: Dec 10, 2021 07:22 AM Reporting Lab: [place] [facility] [address] [facility] [address] Performing Lab: [place] [facility] [address] [facility] [address] MAGNESIUM 1.7 1.6-2.6 Dec 10, 2021 08:05 AM [place] UREA NITROGEN Specimen Type: PLASMA [facility] Comment: [place] [id number] on Dec 10, 2021@08:31 Tests performed on Conversion Innovations (405) SN:[id number] Ordering Provid er: ISATU TODD Report Released Date/Time: Dec 10, 2021 07:22 AM Reporting Lab: [place] [facility] [address] [facility] [address] Performing Lab: [place] [facility] [address] [facility] [address] UREA NITROGEN 8 7-25 Dec 10, 2021 08:05 AM [place] [facility] PHOSPHORUS Sp ecimen Type: PLASMA Comment: [place] [id number] on Dec 10, 2021@08:31 Tests performed on Conversion Innovations (405) SN:[id number] Ordering Provid er: ISATU TODD Report Released Date/Time: Dec 10, 2021 07:22 AM Reporting Lab: [place] [facility] [address] [facility] [address] Performing Lab: [place] [facility] [address] [facility] [address] PHOSPHORUS 1.8 L 2.5-5.0 Dec 10, 2021 08:05 AM [place] [facility] GLUCOSE Sp ecimen Type: PLASMA Comment: [place] [id number] on Dec 10, 2021@08:31 Tests performed on Conversion Innovations (405) SN:[id number] Ordering Provid er: ISATU TODD Report Released Date/Time: Dec 10, 2021 07:22 AM Reporting Lab: [place] [facility] [address] [facility] [place] [address] Performing Lab: [place] [facility] [address] [facility] [place] [address] GLUCOSE 144 H 65-100 Dec 10, 2021 08:05 AM [place] [facility] ELECTROLYTES Sp ecimen Type: PLASMA Comment: [place] [id number] on Dec 10, 2021@08:31 Tests performed on Pham Shell Sieve Operator (405) SN:[id number] Ordering Provid er: ISATU TODD Report Released Date/Time: Dec 10, 2021 07:22 AM Reporting Lab: [place] [facility] [address] [facility] [address] Performing Lab: [place] [facility] [address] [facility] [address] SODIUM 139 135-145 POTASSIUM 3.7 3.5-5.0 CHLORIDE 107 100-110 CARBON DIOXIDE 24 20-30 ANION GAP 8 4-16 Dec 10, 2021 08:05 AM [place] [facility] CALCIUM Sp ecimen Type: PLASMA Comment: [place] [id number] on Dec 10, 2021@08:31 Tests performed on Pham [employer] (405) SN:[id number] Ordering Provid er: ISATU TODD Report Released Date/Time: Dec 10, 2021 07:22 AM Reporting Lab: [place] [facility] [address] [facility] [place] [address] Performing Lab: [place] [facility] [address] [facility] [address] CALCIUM 8.3 L 8.5-10.5 Dec 10, 2021 08:05 [place] CREATININE WITH eGFR Specime n Type: PLASMA AM [facility] PANEL Comment: [place] [id number] on Dec 10, 2021@08:31 Tests performed on Pham [employer] (405) SN:[id number] Ordering Provid er: ISATU TODD Report Released Date/Time: Dec 10, 2021 07:22 AM Reporting Lab: [place] [facility] [address] [facility] [place] [address] Performing Lab: [place] [facility] [address] [facility] [address] CREATININE 0.78 0.5-1.5 eGFR(CKD-EPI 2020) >90.0 >60 Dec 10, 2021 08:05 AM [facility] CBC PROFILE Sp ecimen Type: BLOOD No comment enter ed. Ordering Provid er: ISATU TODD Report Released Date/Time: Dec 10, 2021 07:22 AM Reporting Lab: [facility] [address] [facility] [address] Performing Lab: [facility] [address] [facility] [address] WBC 7.0 4.5-11.0 RBC 4.54 4.23-5.66 HGB [...] 0.00 0-0 Dec 09, 2021 06:46 AM [facility] MAGNESIUM Sp ecimen Type: PLASMA Comment: Tests performed on Conversion Innovations (561) SN:[id number] Ordering Provid er: ISATU TODD Report Released Date/Time: Dec 08, 2021 10:23 AM Reporting Lab: [facility] [address] [facility] [address] Performing Lab: [facility] [address] [facility] [address] MAGNESIUM 1.6 1.6-2.6 Dec 09, 2021 [facility] P4 GLU,BUN,CREAT,LYTES,CA Speci men Type: PLASMA 06:46 AM [facility] Comment: Tests performed on Conversion Innovations (405) SN:[id number] Ordering Provid er: ISATU TODD Report Released Date/Time: Dec 08, 2021 05:00 PM Reporting Lab: [facility] [address] [facility] [address] Performing Lab: [facility] [address] [facility] [address] UREA NITROGEN 6 L 7-25 SODIUM 134 L 135-145 POTASSIUM 3.7 3.5-5.0 CHLORIDE 103 100-110 CARBON DIOXIDE 23 20-30 ANION GAP 8 4-16 GLUCOSE 112 H 65-100 CREATININE 0.70 0.5-1.5 CALCIUM 8.1 L 8.5-10.5 eGFR(CKD-EPI 2020) >90.0 >60 Dec 09, 2021 06:46 AM [facility] CBC PROFILE Sp ecimen Type: BLOOD No comment enter ed. Ordering Provid er: ISATU TODD Report Released Date/Time: Dec 08, 2021 05:00 PM Reporting Lab: [facility] [address] [facility] [address] Performing Lab: [facility] [address] [facility] [address] WBC 7.1 4.5-11.0 RBC 4.40 4.23-5.66 HGB [...] 0.00 0-0 Dec 08, 2021 06:39 AM [place] [facility] MAGNESIUM Sp ecimen Type: PLASMA Comment: Testin g Performed on Conversion Innovations (405) SN:[id number] Ordering Provid er: ISATU TODD Report Released Date/Time: Dec 07, 2021 10:32 AM Reporting Lab: [facility] [address] [facility] [address] Performing Lab: [facility] [address] [facility] [address] MAGNESIUM 1.5 L 1.6-2.6 Dec 08, 2021 [place] P4 GLU,BUN,CREAT,LYTES,CA Speci men Type: PLASMA 06:39 AM [facility] Comment: Testin g Performed on Conversion Innovations (405) SN:[id number] Ordering Provid er: ISATU TODD Report Released Date/Time: Dec 07, 2021 10:32 AM Reporting Lab: [place] [facility] [address] [facility] [address] Performing Lab: [facility] [address] [facility] [address] UREA NITROGEN 6 L 7-25 SODIUM 136 135-145 POTASSIUM 3.3 L 3.5-5.0 CHLORIDE 104 100-110 CARBON DIOXIDE 22 20-30 ANION GAP 10 4-16 GLUCOSE 133 H 65-100 CREATININE 0.76 0.5-1.5 CALCIUM 8.4 L 8.5-10.5 eGFR(CKD-EPI 2020) >90.0 >60 Dec 08, 2021 06:39 AM [place] [facility] CBC PROFILE Sp ecimen Type: BLOOD No comment enter ed. Ordering Provid er: ISATU TODD Report Released Date/Time: Dec 07, 2021 10:32 AM Reporting Lab: [facility] [address] [facility] [address] Performing Lab: [facility] [address] [facility] [address] WBC 8.4 4.5-11.0 RBC 4.75 4.23-5.66 HGB [...] NRBC 0.00 0-0 Dec 07, 2021 06:42 [facility] LIVER PROFILE Specimen Typ e: PLASMA AM [facility] Comment: Tests performed on Conversion Innovations (405 SN:[id number] Ordering Provid er: PORFIRIO WALTERS Report Released Date/Time: Dec 06, 2021 06:57 PM Reporting Lab: [facility] [address] [facility] [address] Performing Lab: [facility] [address] [facility] [address] PROTEIN, TOTAL 5.7 L 6.0-8.5 ALBUMIN 2.4 L 3.2-5.0 BILIRUBIN, TOTAL 0.4 0.2-1.2 ALKALINE PHOSPHATASE 109 40-150 ALT(SGPT) 10 7-52 AST(SGOT) 15 5-34 FIB-4 SCORE 1.92 <2.67 Dec 07, 2021 [facility] P4 GLU,BUN,CREAT,LYTES,CA Speci men Type: PLASMA 06:42 [facility] Comment: Tests performed on Conversion Innovations (405) SN:[id number] Ordering Provid er: PORFIRIO WALTERS Report Released Date/Time: Dec 06, 2021 06:57 PM Reporting Lab: [facility] [address] [facility] [address] Performing Lab: [facility] [address] [facility] [address] UREA NITROGEN 9 7-25 SODIUM 135 135-145 POTASSIUM 3.5 3.5-5.0 CHLORIDE 103 100-110 CARBON DIOXIDE 22 20-30 ANION GAP 10 4-16 GLUCOSE 92 65-100 CREATININE 0.73 0.5-1.5 CALCIUM 8.0 L 8.5-10.5 eGFR(CKD-EPI 2020) >90.0 >60 Dec 07, 2021 06:42 AM [facility] CBC PROFILE Specimen Type: BLOOD [facility] No comment enter ed. Ordering Provid er: PORFIRIO WALTERS Report Released Date/Time: Dec 06, 2021 06:57 PM Reporting Lab: [facility] [address] [facility] [address] Performing Lab: [facility] [address] [facility] [address] WBC 5.7 4.5-11.0 RBC 4.15 L 4.23-5.66 [...] [facility] %) AUTOMATED Comment: Tests performed on Conversion Innovations (405) SN:[id number] Ordering Provid er: ISATU TODD Report Released Date/Time: Dec 07, 2021 10:28 AM Reporting Lab: [place] [facility] [address] [facility] [address] Performing Lab: [place] [facility] [address] [facility] [address] RETICULOCYTES (%) AUTOMATED 1.23 0. 6-2.0 RETICULOCYTES (ABS) AUTOMATED 0.052 0.030-0.090 Dec 06, 2021 09:45 [place] MRSA SURVL NARES Specimen Ty pe: NARES PM [facility] DNA No comment enter ed. Ordering Provid er: ALVARO VARGHESE Report Released Date/Time: Dec 07, 2021 02:20 AM Reporting Lab: [place] [facility] [address] [facility] [address] Performing Lab: [place] [facility] [address] [facility] [place] [address] MRSA SURVL NARES DNA NEGATIVE NEGATIVE Dec 06, 2021 06:00 [place] URINALYSIS W/REFLEX TO Speci men Type: URINE PM [facility] CULTURE No comment enter ed. Ordering Provid er: JELANI SÁNCHEZ Report Released Date/Time: Dec 06, 2021 11:57 AM Reporting Lab: [place] [facility] [address] [facility] [address] Performing Lab: [place] [facility] [address] [facility] [address] URINE COLOR Arlin YELLOW SPECIFIC GRAVITY 1.029 [...] 21, RIVER VARIANT Comment: https://www.cdc.gov/coronavirus/2019-ncov/cases-updates/variant- surveillance/variant-info.html The [employer] SARS CoV 2 [employer] Assay-GX is a next-generation sequencing (NGS) assa 2021 [facility] SEQUENCING y that determine s the complete genome sequence of the SARS-CoV-2 virus. The assay contains variant-tolerant primers to broaden and improve the coverage for variant detection and increase the sensitivity 12:00 [facility] PNL(WH) of the panel to enable detection from lower viral titer samples. The assay is run on the [employer] Digital Sequencer, which performs automated library preparation, sequencing, analysis, and reporting. PM The sequence an alysis includes determination of viral phylogenetic lineage by comparison to the reference strain Wuhan-Hu-1, GenBank: [id number]. Sequence determination may not be possible owing [...] and its performance characteristics determined by the [facility], which is certified under the Clinical Laboratory Improveme nt Amendments (C MARCO) as qualified to perform high complexity clinical laboratory testing. This test is validated for clinical use at [facility] and should not be regarded as investigational or for research. The FDA does not require this test to go through premarket FDA review, and therefore it has not been cleared or approved by the FDA. This report was reviewed and approved by the on-service pathologist. Ordering Provid er: JELANI SÁNCHEZ Report Released Date/Time: Dec 06, 2021 01:13 PM Reporting Lab: [place] [facility] [address] [facility] [place] [address] Performing Lab: [facility] [address] [facility] [address] SARS-CoV-2 CLADE() 22C (OMICRON) SARS-CoV-2 LINEAGE() BA.2.12.1 Dec 06, 2021 12:00 [facility] COVID-19 AG SCREEN Specimen Type: NASAL CAVITY PM [facility] PANEL BINAX(405) Comment: Testi ng Performed By: Mike Briscoe Ordering Provid er: JELANI SÁNCHEZ Report Released Date/Time: Dec 08, 2021 08:23 AM Reporting Lab: [place] [facility] [address] [facility] [place] [address] Performing Lab: [facility] [address] [facility] [address] COVID-19 AG SCRN(wrj BINAX) POSITIVE HH NE G Dec 06, 2021 12:00 PM [facility] TROPONIN II Sp ecimen Type: PLASMA Comment: Tests performed on Pham Shell Sieve Operator (405) SN:[id number] Ordering Provid er: JELANI SÁNCHEZ Report Released Date/Time: Dec 06, 2021 11:57 AM Reporting Lab: [place] [facility] [address] [facility] [place] [address] Performing Lab: [facility] [address] [facility] [place] [address] TROPONIN II 0.03 0.00-0.29 Dec 06, 2021 12:00 PM [place] [facility] LIVER PROFILE Sp ecimen Type: PLASMA Comment: Testin g Performed on Pham Shell Sieve Operator (405) SN:[id number] Ordering Provid er: JELANI SÁNCHEZ Report Released Date/Time: Dec 06, 2021 11:57 AM Reporting Lab: [place] [facility] [address] [facility] [facility] [place] [address] Performing Lab: [facility] [address] [facility] [place] [address] PROTEIN, TOTAL 6.6 6.0-8.5 ALBUMIN 2.8 L 3.2-5.0 BILIRUBIN, TOTAL 0.6 0.2-1.2 ALKALINE PHOSPHATASE 134 40-150 ALT(SGPT) 13 7-52 AST(SGOT) 18 5-34 FIB-4 SCORE 1.94 <2.67 Dec 06, 2021 [place] P4 GLU,BUN,CREAT,LYTES,CA Speci men Type: PLASMA 12:00 PM [facility] Comment: Testin g Performed on Pham Shell Sieve Operator (405) [id number] Ordering Provid er: JELANI SÁNCHEZ Report Released Date/Time: Dec 06, 2021 11:57 AM Reporting Lab: [facility] [address] [facility] [address] Performing Lab: [facility] [address] [facility] [address] UREA NITROGEN 13 7-25 SODIUM 138 135-145 POTASSIUM 3.8 3.5-5.0 CHLORIDE 103 100-110 CARBON DIOXIDE 23 20-30 ANION GAP 12 4-16 GLUCOSE 105 H 65-100 CREATININE 0.90 0.5-1.5 CALCIUM 8.7 8.5-10.5 eGFR(CKD-EPI 2020) >90.0 >60 Dec 06, 2021 12:00 PM [facility] BNP(P) Sp ecimen Type: PLASMA Comment: Tests performed on Pham Shell Sieve Operator (405) SN:[id number] Ordering Provid er: JELANI SÁNHCEZ Report Released Date/Time: Dec 06, 2021 11:57 AM Reporting Lab: [facility] [place] [facility] [address] [facility] [address] Performing Lab: [place] [facility] [address] [facility] [address] BNP(P) 224.8 H 10-100 Dec 06, 2021 [facility] [place] COVID-19+FLU/RSV DIAGNOSTIC Spe cimen Type: NASOPHARYNX 12:00 PM [facility] PANEL(405) Comment: Tests performed on Wrightspeedxpert (405) Critical results called to and read back by: ALESHIA WILKINSON RN 12/06/21 @ 1312 Ordering Provid er: JELANI SÁNCHEZ Report Released Date/Time: Dec 06, 2021 11:57 AM Reporting Lab: [place] [facility] [address] [facility] [address] Performing Lab: [facility] [address] [facility] [address] FLU A(PCR) NEGATIVE NEGATIVE FLU B(PCR) NEGATIVE NEGATIVE RSV(PCR) NEGATIVE NEGATIVE COVID-19([id number]) DETECTED HH NO T DETECTED Dec 06, 2021 12:00 PM [facility] CBC PROFILE Sp ecimen Type: BLOOD No comment enter ed. Ordering Provid er: JELANI SÁNCHEZ Report Released Date/Time: Dec 06, 2021 11:57 AM Reporting Lab: [facility] [address] [facility] [address] Performing Lab: [facility] [address] [facility] [address] WBC 7.2 4.5-11.0 RBC 4.86 4.23-5.66 HGB [...] TOBACCO USE 1-[address] [facility] [facility] Tobacco Use History This section includes a history of the smoking, or tobacco- related health factors, that were collected on or before the date of the Encounter. The data comes from the [place] facility where the Encounter took place. Date/Time Smoking Status/Tobacco Use Comment [facility] Mar 24, 2020 03:00 PM QUIT TOBACCO USE 1-[address] [facility] [facility] Feb 21, 2019 04:11 PM QUIT TOBACCO USE 1-7 YEARS AGO [facility] Feb 20, 2019 03:38 PM QUIT TOBACCO USE 1-7 YEARS AGO [facility] Feb 03, 2019 09:50 AM QUIT TOBACCO USE 1-[address] [facility] May 25, 2016 11:53 [...] 12:50 PM V1-PT DECLINES REF TO TOBACCO [place] [facility] Mar 16, 2016 12:50 PM V1-PT THINKING ABOUT QUIT [facility] TOBACCO USE Aug 12, 2015 08:48 AM CURRENT SMOKER [facility] Radiology Reports: +/- 30 days of [...] the Encounter. The data comes from all [place] treatment facilities. Date/Time Radiology Report Provider Source Dec 13, 2021 12:57 PM MRI ABDOMEN W/WO CONTRAST: MARYELLEN [facility] [place] LUC[place] MEEK N [id number] -1950 M [facility] Exm Date: DEC 13, 2021@12:57 Req Phys: ISATU TODD Loc: OP Unknown/0 12-15-2021@13:20 Img Loc: MRI IMAGING (OOS) Service: [facility]ZGENERAL MEDICINE (Case [id number] COMPLETE) MRI ABDOMEN W/WO CONTRAST (M RI Detailed) CPT:84035 Reason for Study: further characterization of a [...] new lyphadenopathy REQUESTING MD: Isatu Todd PAGER: [phone] PHONE: [phone] Weight: 232.2 lb [105.32 kg] (12/12/2021 05:00) [...] patient will need to arrange for a wheat combine driver to take him/her home after the [...] 15, 2021 Date Verified: DEC 15, 2021 Service Delivery Analyst E-Sig:/ES/MARYELLEN LONG Report: MRI ABDOMEN W/WO CONTRAST [...] MALIGNANCY Primary Interpreting Staff: Staff AMELIA THOMAS (Service Delivery Analyst) / Dec 10, 2021 09:[address] ABDOMEN & PELVIS: RADIOLOGY,OUTSIDE [facility] [place] LUCAS MEEK N [id number] -1950 M [facility] Exm Date: DEC 10, 2021@09:30 Req Phys: ISATU TODD Loc: MED/12-10@10:57 Img Loc: CT SCAN (OOS) Service: [facility] MEDICINE (Case [id number] COMPLETE) CT ABD & PELVIS WITHOUT CONT RAST (CT Detailed) CPT:73479 Reason for Study: 71 yo male with [...] INDEX - NO HEIGHTS FOUND Pager number: [phone] STAT orders MUST be call ed to RADIOLOGY [phone] to speak to the appropriate bmw service technician. Report Status: Verified Date Reported: DEC 10, 2021 Date Verified: DEC 10, 2021 Service Delivery Analyst E-Sig: Report: EXAM: CT abdomen and pelvis [...] ph nodes. READING PHYSICIAN: Ramone Munoz D.O. [phone] 12/10/2021 10:55 EDT [facility] [phone] (For Medical Practitioner Use Only ) [address] [place] [address], [place] [address], [address] [place] [address] Attention Patients / Veterans: If you have ques tions or concerns about these test results, please contact your [facility] provider or primary care team. Primary Diagnostic Code: SIGNIFICANT ABNORMALIT Y, ATTN NEEDED Primary Interpreting Staff: RADIOLOGY,OUTSIDE SERVICE, Staff Physician / Dec 09, 2021 07:34 AM BASW (MODIFIED): JESSIE CHENEY [facility] [place] LUCAS MEEK N [id number] -1950 [facility] Exm Date: DEC 09, 2021@07:34 Req Phys: ISATU TODD Loc: 1S MED/12-09@11:26 Img Loc: XRAY (OOS) Service: [facility] MEDICINE (Case [id number] COMPLETE) BASW (MODIFIED) (EUNICE stephenson) CPT:04251 Contrast Media : Barium Reason for Study: dysphagia ?esophageal spasm Clinical History: Report Status: Verified Date Reported: DEC 09, 2021 Date Verified: DEC 09, 2021 Service Delivery Analyst E-Sig:/ES/JESSIE CHENEY Report: DELISA (MODIFIED) , 12/09/2021 [...] REQUIRED Primary Interpreting Staff: JESSIE CHENEY, RADIOLOGIST (Service Delivery Analyst) /TLC Dec 06, 2021 12:[address] CHEST (INCLUDES ADRENALS): [facility] N [id number] -1950 [facility] Exm Date: DEC 06, 2021@12:59 Req Phys: JELANI SÁNCHEZ Pat Loc: [facility] ED DAYS M 1RD (Req'g Loc) Img Loc: CT SCAN (OOS) Service: Unknown (Case [id number] COMPLETE) CT THORAX W/O CONT (CT Detai led) CPT:60349 Reason for Study: Opacification right chest Clinical History: No contrast allergy BUN: 13 (12/06/21 12:00) CREATI: 0.90 (12/06/21 12:00) eGFR 05/16/21 09:43 52 L Weight: 232.6 lb [105.51 kg] (12/06/2021 11:40) BODY MASS INDEX - NO HEIGHTS FOUND Pager number: [phone] STAT orders MUST be called t o RADIOLOGY [phone] to speak to the appropriate bmw service technician. Indications - Other: Opacification right chest, covid positive, lung cancer histo Report Status: Verified Date Reported: DEC 06, 2021 Date Verified: DEC 06, 2021 Service Delivery Analyst E-Sig:/ES/JESSIE CHENEY Report: CT THORAX W/O CONT [...] IMMEDIATE ATTENTION REQUIRED Primary Interpreting Staff: JESSIE CHNEEY, RADIOLOGIST (Service Delivery Analyst) Primary Interpreting Resident: PRINCE CHAMPION, Resident /BR Dec 06, 2021 11:58 AM CHEST SINGLE VIEW: JESSIE CHENEY LUCAS MEEK N [id number] -1950 M [facility] Exm Date: DEC 06, 2021@11:58 Req Phys: JELANI SÁNCHEZ Pat Loc: [facility] ED DAYS M 1RD (Req'g Loc) Img Loc: XRAY (OOS) Service: Unknown (Case [id number] COMPLETE) CHEST SINGLE VIEW (RAD Detai led) CPT:45516 Proc Modifiers : PORTABLE EXAM Reason for Study: SOB, home covid test positive Clinical History: Report Status: Verified Date Reported: DEC 06, 2021 Date Verified: DEC 06, 2021 Service Delivery Analyst E-Sig:/ES/JESSIE CHENEY Report: Exam type: Chest x-ray [...] REQUIRED Primary Interpreting Staff: JESSIE CHENEY, RADIOLOGIST (Service Delivery Analyst) /[facility] Pathology Reports: +/- 30 days [...] the Encounter. The data comes from all [facility] facilities. Date/Time Pathology Report Provider Source Dec 21, 2021 11:46 AM LR SURGICAL PATHOLOGY REPORT: STEFANY MILLER [facility] LOCAL TITLE: LR SURGICAL PATHOLOGY REPORT [facility] STANDARD TITLE: PATHOLOGY REPORT DATE OF NOTE: DEC 21, 2021@11:46:59 ENTRY DATE: DEC 21, 2021@11:46:59 AUTHOR: NIURKA MILLER EXP COSIGNER: URGENCY: STATUS: COMPLETED $APHDR Reporting Lab: [facility] [CLIA# [id number]] [address] [place] [address] - - - - - - [...] automatically d ocumented from SURGERY package case #[id number] Field (#32) PRINCIPAL PRE-OP DIAGNOSIS, (#.72) OTHER [...] automatically d ocumented from SURGERY package case #[id number] Field (#34) PRINCIPAL POST-OP DIAG, (#.74) OTHER [...] Label: Lucas Meek Paperwork: Lucas Meek Cassette: [id number];..;KALYANI;.;848;[phone] Specimen is labeled: ES bx Received in formalin are several pieces of pale boyd and brown tissue, 1.2 x 0.7 cm in aggregate. Submitted entirely in 1 cassette [id number];..;KALYANI;.;378;[phone] SAW 12/15/2021 Microscopic exam: DIAGNOSIS: A. 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 Kendell long. TIARA Coombs was notified on 12/21/21. The attending pathologist who signature mansoor ears on this report has reviewed all diagnostic slides and has edited t he gross and/or microscopic portion of this report in rendering the final pathologic diagnosis. [address] [address] CPT: 46442 /emely/ NIURKA Yeung MD Signed Dec 21, 2021@11:46 Performing Laboratory: Surgical Pathology Report Performed By: [facility] [CLIA# [id number]] [address] [place] [address] $FTR - - - - - [...] - - LUCAS MEEK STANDARD FORM 515 ID:[id number] SEX:M :1950 AGE: 71 LOC: [facility] END PCP: Isatu Todd /emely/ NIURKA Yeung MD Signed: 12/21/2021 11:46 Dec 06, 2021 03:30 PM LR MICROBIOLOGY REPORT: [facility] Reporting Lab: [facility] [CLIA# [id number]] [address] [place] [address] Accession [UID]: [id number] [[id number]] Receiv ed: Dec 06, 2021@16:14 Collection sample: BLOOD CUL T BOTTLE(NIRMAL/AERO)Collection date: Dec 06, 2021 15:30 Site/Specimen: BLOOD Provider: JELANI SÁNCHEZ Comment on specimen: LAC Test(s) ordered: BLOOD CULTURE ANAEROBI C....... completed: Dec 12, 2021 06:18 * BACTERIOLOGY FINAL REPORT => Dec 12, 2021 06:1 8 TECH CODE: 21697 Bacteriology Remark(s): NO GROWTH IN 5 DAYS =--=--=--=--=--=--=--=--=--=--=--=--=--= --=--=--=--=--=--=--=--=--=--=--=--=-- Performing Laboratory: Bacteriology Report Performed By: [facility] [CLIA# [id number]] [address] [place] [address] Dec 06, 2021 03:30 PM LR MICROBIOLOGY REPORT: [facility] Reporting Lab: [facility] [CLIA# [id number]] [address] [place] [address] Accession [UID]: [id number] [[id number]] Receiv ed: Dec 06, 2021@16:14 Collection sample: BLOOD CUL T BOTTLE(NIRMAL/AERO)Collection date: Dec 06, 2021 15:30 Site/Specimen: BLOOD Provider: JELANI SÁNCHEZ Comment on specimen: LAC Test(s) ordered: BLOOD CULTURE AEROBIC. ........ completed: Dec 12, 2021 06:17 * BACTERIOLOGY FINAL REPORT => Dec 12, 2021 06:1 7 TECH CODE: 01958 Bacteriology Remark(s): NO GROWTH IN 5 DAYS =--=--=--=--=--=--=--=--=--=--=--=--=--= --=--=--=--=--=--=--=--=--=--=--=--=-- Performing Laboratory: Bacteriology Report Performed By: [facility] [CLIA# [id number]] [address] [place] [address]
--- OUTSIDE RECORDS SUMMARY | 2022-01-19 08:15 | XMS_ITS | Encounter Summary ---
:1950 Author Organization [facility] Address [address] [place] [id number] Support Name Relationship Address Phone YUSRA MEEK Unavailable [address] [place] [facility] [place] [address] YUSRA MEEK Unavailable [address] [place] [facility] [place] [address] CLAY MOSLEY Unavailable Unavailable SJ SANTACRUZ Unavailable [...] MEDICARE MEDICARE PART Jun 18, PART A [id number] DO KALYANI PATIENT (WNR) (M) A 2016 13A 1 [place] MEDICARE MEDICARE PART Jun 18, PART B [id number] DO KALYANI PATIENT (WNR) (M) B 2016 13A 1 [place] MEDICARE MEDICARE PART Jun 18, PART A [id number] KALYANIDO PATIENT (WNR) (M) A 2017 VH81 2 [place] MEDICARE MEDICARE PART Jun 18, PART B [id number] DO KALYANI PATIENT (WNR) (M) B 2017 VH81 2 [place] UNITED MEDICARE MCR(Jun 18 [id number] Luz MEEK PATIENT HEALTHCARE ADVANTAGE NR) [address] [facility] (WNR) Selected Encounter This section includes the information on record at NH for the Encounter. Date/Time Encounter Type Encounter Reason Provider Source Description Dec 06, 2021 INITIAL GENERAL INTERNAL ICD-10-CM J15.9 GEORGE VARGHESE 05:28 PM HOSPITAL CARE MEDICINE Unspecified bacterial pneumonia with Provider Comments: Unspecified Bacterial Pneumonia IHE Encounter Template Text not used by NH Assessments - Encounter Diagnoses This section includes the primary and secondary diagnoses documented for the Encounter. 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 Dec 07, 2021 SECONDARY Psoriasis, ABIMAEL,ALVARO [place] 11:16 AM unspecified [place] [facility] Dec 07, 2021 SECONDARY Spinal stenosis, 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 Test Date/Time Test Type Test Details Facility Name October 31, 2021 07:37 AM Consult Order [facility] Cons Electronics Repair Technician's Choice November 15, 2021 10:37 AM Consult Order [facility] CARE-PODIATRY Cons Electronics Repair Technician's Choice Dec 06, 2021 12:52 PM Pharmacy - [place] Infusion Order [facility] Dec 06, 2021 03:24 PM Pharmacy - [place] Order [facility] Dec 06, 2021 03:40 PM Pharmacy - [place] Order [facility] Dec 15, 2021 08:41 AM Consult Order SPEECH PATHOLOGY [place] OUTPATIENT Cons [facility] Electronics Repair Technician's Choice Jan 15, 2022 10:08 PM Consult Order [facility] CARE-PALLIATIVE CARE Cons Electronics Repair Technician's Choice Lab Results: +/- 30 days of [...] Interpretation Reference Range Comment Dec 15, 2021 [facility] P4 GLU,BUN,CREAT,LYTES,CA Speci men Type: PLASMA 06:43 AM [facility] Comment: Tests performed on Spectraseis (405) SN:[id number] Ordering Provid er: ISATU TODD Report Released Date/Time: Dec 11, 2021 07:42 AM Reporting Lab: [facility] [address] [facility] [address] Performing Lab: [facility] [address] [facility] [address] UREA NITROGEN 9 7-25 SODIUM 137 135-145 POTASSIUM 3.8 3.5-5.0 CHLORIDE 105 100-110 CARBON DIOXIDE 26 20-30 ANION GAP 6 4-16 GLUCOSE 102 H 65-100 CREATININE 0.64 0.5-1.5 CALCIUM 8.1 L 8.5-10.5 eGFR(CKD-EPI 2020) >90.0 >60 Dec 15, 2021 06:43 AM [facility] CBC PROFILE Sp ecimen Type: BLOOD No comment enter ed. Ordering Provid er: ISATU TODD Report Released Date/Time: Dec 10, 2021 07:22 AM Reporting Lab: [facility] [address] [facility] [address] Performing Lab: [facility] [address] [facility] [address] WBC 5.7 4.5-11.0 RBC 4.22 L 4.23-5.66 [...] ABSOLUTE NRBC 0.00 0-0 Dec 14, 2021 [facility] CYTOGENETIC Specimen Type: ESOPHAGUS 02:59 PM [facility] FISH([facility]) Comment: ~For T est: CYTOGENETIC FISH([facility]) ~FISH HER 2 NUE, FFPE See full report in BiOWiSH Image display viewer/tab#LAB-Reference Ordering Provid er: NIURKA MILLER Report Released Date/Time: Dec 21, 2021 12:11 PM Reporting Lab: [facility] [address] [facility] [address] Performing Lab: [facility] [place] CYTOGENETIC FISH([facility]) comment Dec 14, 2021 [place] P4 GLU,BUN,CREAT,LYTES,CA Speci men Type: PLASMA 06:27 AM [facility] Comment: Tests performed on Spectraseis (405) SN:[id number] Ordering Provid er: ISATU TODD Report Released Date/Time: Dec 11, 2021 07:42 AM Reporting Lab: [place] [facility] [address] [facility] [address] Performing Lab: [facility] [address] [facility] [address] UREA NITROGEN 10 7-25 SODIUM 137 135-145 POTASSIUM 4.0 3.5-5.0 CHLORIDE 104 100-110 CARBON DIOXIDE 25 20-30 ANION GAP 8 4-16 GLUCOSE 99 65-100 CREATININE 0.67 0.5-1.5 CALCIUM 8.2 L 8.5-10.5 eGFR(CKD-EPI 2020) >90.0 >60 Dec 14, 2021 06:27 AM [facility] CBC PROFILE Sp ecimen Type: BLOOD No comment enter ed. Ordering Provid er: ISATU TODD Report Released Date/Time: Dec 10, 2021 07:22 AM Reporting Lab: [facility] [address] [facility] [address] Performing Lab: [facility] [address] [facility] [address] WBC 6.0 4.5-11.0 RBC 4.29 4.23-5.66 HGB [...] NRBC 0.00 0-0 Dec 13, 2021 [facility] P4 GLU,BUN,CREAT,LYTES,CA Speci men Type: PLASMA 06:34 AM [facility] Comment: Tests performed on Spectraseis (405) SN:[id number] Ordering Provid er: ISATU TODD Report Released Date/Time: Dec 11, 2021 07:42 AM Reporting Lab: [facility] [address] [facility] [address] Performing Lab: [facility] [address] [facility] [address] UREA NITROGEN 12 7-25 SODIUM 136 135-145 POTASSIUM 3.9 3.5-5.0 CHLORIDE 105 100-110 CARBON DIOXIDE 24 20-30 ANION GAP 7 4-16 GLUCOSE 102 H 65-100 CREATININE 0.66 0.5-1.5 CALCIUM 8.3 L 8.5-10.5 eGFR(CKD-EPI 2020) >90.0 >60 Dec 13, 2021 06:34 AM [facility] CBC PROFILE Sp ecimen Type: BLOOD No comment enter ed. Ordering Provid er: ISATU TODD Report Released Date/Time: Dec 10, 2021 07:22 AM Reporting Lab: [facility] [address] [facility] [address] Performing Lab: [facility] [address] [facility] [address] WBC 5.6 4.5-11.0 RBC 4.28 4.23-5.66 HGB [...] ABSOLUTE NRBC 0.00 0-0 Dec 12, 2021 [facility] P4 GLU,BUN,CREAT,LYTES,CA Speci men Type: PLASMA 06:21 AM [facility] Comment: Tests performed on Spectraseis (405) SN:[id number] Ordering Provid er: ISATU TODD Report Released Date/Time: Dec 11, 2021 07:42 AM Reporting Lab: [facility] [address] [facility] [address] Performing Lab: [facility] [address] [facility] [address] UREA NITROGEN 11 7-25 SODIUM 139 135-145 POTASSIUM 4.1 3.5-5.0 CHLORIDE 107 100-110 CARBON DIOXIDE 24 20-30 ANION GAP 8 4-16 GLUCOSE 110 H 65-100 CREATININE 0.70 0.5-1.5 CALCIUM 8.3 L 8.5-10.5 eGFR(CKD-EPI 2020) >90.0 >60 Dec 12, 2021 06:21 AM [facility] CBC PROFILE Sp ecimen Type: BLOOD No comment enter ed. Ordering Provid er: ISATU TODD Report Released Date/Time: Dec 10, 2021 07:22 AM Reporting [facility] [address] [facility] [address] [facility]forming Lab: [facility] [address] [facility] WBC 5.5 4.5-11.0 RBC 4.37 4.23-5.66 HGB [...] 0.00 0-0 Dec 12, 2021 06:00 AM [facility] MAGNESIUM Sp ecimen Type: PLASMA Comment: Testin g Performed on Spectraseis (405) SN:[id number] Ordering Provid er: ISATU TODD Report Released Date/Time: Dec 12, 2021 08:24 AM Reporting [facility] [address] [facility] [address] Performing Lab: [facility] [address] [facility] [address] MAGNESIUM 1.8 1.6-2.6 Dec 12, 2021 06:00 AM [facility] PHOSPHORUS Sp ecimen Type: PLASMA Comment: Testin g Performed on Spectraseis (405) SN:[id number] Ordering Provid er: ISATU TODD Report Released Date/Time: Dec 12, 2021 08:24 AM Reporting Lab: [facility] [address] [facility] [address] Performing Lab: [facility] [address] [facility] [address] PHOSPHORUS 3.1 2.5-5.0 Dec 11, 2021 06:15 AM [place] [facility] ELECTROLYTES Sp ecimen Type: PLASMA Comment: Tests performed on Spectraseis (405) SN:[id number] Ordering Provid er: ISATU TODD Report Released Date/Time: Dec 10, 2021 07:22 AM Reporting Lab: [facility] [address] [facility] [address] Performing Lab: [facility] [address] [facility] [address] SODIUM 137 135-145 POTASSIUM 4.3 3.5-5.0 CHLORIDE 108 100-110 CARBON DIOXIDE 20 20-30 ANION GAP 9 4-16 Dec 11, 2021 06:15 AM [facility] CBC PROFILE Sp ecimen Type: BLOOD Comment: Result s checked Ordering Provid er: ISATU TODD Report Released Date/Time: Dec 10, 2021 07:22 AM Reporting Lab: [facility] [address] [facility] [address] Performing Lab: [facility] [address] [facility] [address] WBC 5.8 4.5-11.0 RBC 4.37 4.23-5.66 HGB [...] Type: PLASMA Comment: Tests performed on Pham Wool Puller (405) SN:[id number] Results checked Ordering Provid er: ISATU TODD Report Released Date/Time: Dec 11, 2021 07:44 AM Reporting Lab: [place] [facility] [address] [facility] [address] Performing Lab: [place] [facility] [address] [facility] [address] PHOSPHORUS 3.0 2.5-5.0 Dec 10, 2021 08:05 AM [place] [facility] MAGNESIUM Sp ecimen Type: PLASMA Comment: [place] [id number] on Dec 10, 2021@08:31 Tests performed on Pham Notorious (405) SN:[id number] Ordering Provid er: ISATU TODD Report Released Date/Time: Dec 10, 2021 07:22 AM Reporting Lab: [place] [facility] [address] [place] [facility] [place] [address] Performing Lab: [place] [facility] [address] [place] [facility] [place] [address] MAGNESIUM 1.7 1.6-2.6 Dec 10, 2021 08:05 AM [place] UREA NITROGEN Specimen Type: PLASMA [facility] Comment: [place] [id number] on Dec 10, 2021@08:31 Tests performed on Pham Notorious (405) SN:[id number] Ordering Provid er: ISATU TODD Report Released Date/Time: Dec 10, 2021 07:22 AM Reporting Lab: [place] [facility] [address] [place] [facility] [place] [address] Performing Lab: [place] [facility] [address] [facility] [address] UREA NITROGEN 8 7-25 Dec 10, 2021 08:05 AM [place] [facility] PHOSPHORUS Sp ecimen Type: PLASMA Comment: [place] [id number] on Dec 10, 2021@08:31 Tests performed on Spectraseis (405) SN:[id number] Ordering Provid er: ISATU TODD Report Released Date/Time: Dec 10, 2021 07:22 AM Reporting Lab: [place] [facility] [address] [facility] [address] Performing Lab: [place] [facility] [address] [facility] [address] PHOSPHORUS 1.8 L 2.5-5.0 Dec 10, 2021 08:05 AM [place] [facility] GLUCOSE Sp ecimen Type: PLASMA Comment: [place] [id number] on Dec 10, 2021@08:31 Tests performed on Spectraseis (405) SN:[id number] Ordering Provid er: ISATU TODD Report Released Date/Time: Dec 10, 2021 07:22 AM Reporting Lab: [place] [facility] [address] [facility] [address] Performing Lab: [place] [facility] [address] [facility] [address] GLUCOSE 144 H 65-100 Dec 10, 2021 08:05 AM [place] [facility] CALCIUM Sp ecimen Type: PLASMA Comment: [place] [id number] on Dec 10, 2021@08:31 Tests performed on Spectraseis (405) SN:[id number] Ordering Provid er: ISATU TODD Report Released Date/Time: Dec 10, 2021 07:22 AM Reporting Lab: [place] [facility] [address] [place] [facility] [place] [address] Performing Lab: [place] [facility] [address] [facility] [address] CALCIUM 8.3 L 8.5-10.5 Dec 10, 2021 08:05 AM [place] [facility] ELECTROLYTES Sp ecimen Type: PLASMA Comment: [place] [id number] on Dec 10, 2021@08:31 Tests performed on Spectraseis (405) SN:[id number] Ordering Provid er: ISATU TODD Report Released Date/Time: Dec 10, 2021 07:22 AM Reporting Lab: [place] [facility] [address] [facility] [address] Performing Lab: [facility] [address] [facility] [address] SODIUM 139 135-145 POTASSIUM 3.7 3.5-5.0 CHLORIDE 107 100-110 CARBON DIOXIDE 24 20-30 ANION GAP 8 4-16 Dec 10, 2021 08:05 [place] CREATININE WITH eGFR Specime n Type: PLASMA AM [facility] PANEL Comment: [place] [id number] on Dec 10, 2021@08:31 Tests performed on Spectraseis (405) SN:[id number] Ordering Provid er: ISATU TODD Report Released Date/Time: Dec 10, 2021 07:22 AM Reporting Lab: [facility] [address] [facility] [address] Performing Lab: [facility] [address] [facility] [address] CREATININE 0.78 0.5-1.5 eGFR(CKD-EPI 2020) >90.0 >60 Dec 10, 2021 08:05 AM [facility] CBC PROFILE Sp ecimen Type: BLOOD No comment enter ed. Ordering Provid er: ISATU TODD Report Released Date/Time: Dec 10, 2021 07:22 AM Reporting Lab: [facility] [facility] [address] [facility] [address] Performing Lab: [facility] [address] [facility] [address] WBC 7.0 4.5-11.0 RBC 4.54 4.23-5.66 HGB [...] 0.00 0-0 Dec 09, 2021 06:46 AM [place] [facility] MAGNESIUM Sp ecimen Type: PLASMA Comment: Tests performed on Spectraseis (405) SN:[id number] Ordering Provid er: ISATU TODD Report Released Date/Time: Dec 08, 2021 10:23 AM Reporting Lab: [facility] [address] [facility] [address] Performing Lab: [facility] [address] [facility] [address] MAGNESIUM 1.6 1.6-2.6 Dec 09, 2021 [place] P4 GLU,BUN,CREAT,LYTES,CA Speci men Type: PLASMA 06:46 AM [facility] Comment: Tests performed on Spectraseis (405) SN:[id number] Ordering Provid er: ISATU TODD Report Released Date/Time: Dec 08, 2021 05:00 PM Reporting Lab: [place] [facility] [address] [facility] [address] Performing Lab: [facility] [address] [facility] [address] UREA NITROGEN 6 L 7-25 SODIUM 134 L 135-145 POTASSIUM 3.7 3.5-5.0 CHLORIDE 103 100-110 CARBON DIOXIDE 23 20-30 ANION GAP 8 4-16 GLUCOSE 112 H 65-100 CREATININE 0.70 0.5-1.5 CALCIUM 8.1 L 8.5-10.5 eGFR(CKD-EPI 2020) >90.0 >60 Dec 09, 2021 06:46 AM [place] [facility] CBC PROFILE Sp ecimen Type: BLOOD No comment enter ed. Ordering Provid er: ISATU TODD Report Released Date/Time: Dec 08, 2021 05:00 PM Reporting Lab: [facility] [address] [facility] [address] Performing Lab: [facility] [address] [facility] [address] WBC 7.1 4.5-11.0 RBC 4.40 4.23-5.66 HGB [...] 0.00 0-0 Dec 08, 2021 06:39 AM [facility] MAGNESIUM Sp ecimen Type: PLASMA Comment: Testin g Performed on Spectraseis (405) SN:[id number] Ordering Provid er: ISATU TODD Report Released Date/Time: Dec 07, 2021 10:32 AM Reporting Lab: [facility] [address] [facility] [address] [facility]forming Lab: [facility] [address] [facility] [address] MAGNESIUM 1.5 L 1.6-2.6 Dec 08, 2021 [facility] P4 GLU,BUN,CREAT,LYTES,CA Speci men Type: PLASMA 06:39 AM [facility] Comment: Testin g Performed on Pham Wool Puller (405) SN:[id number] Ordering Provid er: ISATU TODD Report Released Date/Time: Dec 07, 2021 10:32 AM Reporting Lab: [facility] [address] [facility] [address] Performing Lab: [facility] [address] [facility] [address] UREA NITROGEN 6 L 7-25 SODIUM 136 135-145 POTASSIUM 3.3 L 3.5-5.0 CHLORIDE 104 100-110 CARBON DIOXIDE 22 20-30 ANION GAP 10 4-16 GLUCOSE 133 H 65-100 CREATININE 0.76 0.5-1.5 CALCIUM 8.4 L 8.5-10.5 eGFR(CKD-EPI 2020) >90.0 >60 Dec 08, 2021 06:39 AM [facility] CBC PROFILE Sp ecimen Type: BLOOD No comment enter ed. Ordering Provid er: ISATU TODD Report Released Date/Time: Dec 07, 2021 10:32 AM Reporting Lab: [facility] [address] [facility] [address] Performing Lab: [facility] [address] [facility] [address] WBC 8.4 4.5-11.0 RBC 4.75 4.23-5.66 HGB [...] NRBC 0.00 0-0 Dec 07, 2021 06:42 [place] LIVER PROFILE Specimen Typ e: PLASMA AM [facility] Comment: Tests performed on Pham Notorious (405) SN:[id number] Ordering Provid er: PORFIRIO WALTERS Report Released Date/Time: Dec 06, 2021 06:57 PM Reporting Lab: [place] [facility] [address] [facility] [address] Performing Lab: [facility] [address] [facility] [address] PROTEIN, TOTAL 5.7 L 6.0-8.5 ALBUMIN 2.4 L 3.2-5.0 BILIRUBIN, TOTAL 0.4 0.2-1.2 ALKALINE PHOSPHATASE 109 40-150 ALT(SGPT) 10 7-52 AST(SGOT) 15 5-34 FIB-4 SCORE 1.92 <2.67 Dec 07, 2021 [facility] P4 GLU,BUN,CREAT,LYTES,CA Speci men Type: PLASMA 06:42 AM [facility] Comment: Tests performed on Pham Wool Puller (405) SN:[id number] Ordering Provid er: PORFIRIO WALTERS Report Released Date/Time: Dec 06, 2021 06:57 PM Reporting Lab: [facility] [address] [facility] [address] Performing Lab: [facility] [address] [facility] [address] UREA NITROGEN 9 7-25 SODIUM 135 135-145 POTASSIUM 3.5 3.5-5.0 CHLORIDE 103 100-110 CARBON DIOXIDE 22 20-30 ANION GAP 10 4-16 GLUCOSE 92 65-100 CREATININE 0.73 0.5-1.5 CALCIUM 8.0 L 8.5-10.5 eGFR(CKD-EPI 2020) >90.0 >60 Dec 07, 2021 06:42 AM [place] CBC PROFILE Specimen Type: BLOOD [facility] No comment enter ed. Ordering Provid er: PORFIRIO WALTERS Report Released Date/Time: Dec 06, 2021 06:57 PM Reporting Lab: [facility] [address] [facility] [address] Performing Lab: [facility] [address] [facility] [address] WBC 5.7 4.5-11.0 RBC 4.15 L 4.23-5.66 [...] ABSOLUTE NRBC 0.00 0-0 Dec 07, 2021 [facility] RETICULOCYTE CT (ABS & Specimen Type: BLOOD 06:00 AM [facility] %) AUTOMATED Comment: Tests performed on Spectraseis (155) SN:[id number] Ordering Provid er: ISATU TODD Report Released Date/Time: Dec 07, 2021 10:28 AM Reporting Lab: [facility] [address] [facility] [address] Performing Lab: [facility] [address] [facility] [address] RETICULOCYTES (%) AUTOMATED 1.23 0. 6-2.0 RETICULOCYTES (ABS) AUTOMATED 0.052 0.030-0.090 Dec 06, 2021 09:45 [place] MRSA SURVL NARES Specimen Ty pe: NARES PM [facility] DNA No comment enter ed. Ordering Provid er: ALVARO VARGHESE Report Released Date/Time: Dec 07, 2021 02:20 AM Reporting Lab: [facility] [address] [facility] [address] Performing Lab: [facility] [address] [facility] [address] MRSA SURVL NARES DNA NEGATIVE NEGATIVE Dec 06, 2021 06:00 [facility] URINALYSIS W/REFLEX TO Speci men Type: URINE PM [facility] CULTURE No comment enter ed. Ordering Provid er: JELANI SÁNCHEZ Report Released Date/Time: Dec 06, 2021 11:57 AM Reporting Lab: [facility] [address] [facility] [address] Performing Lab: [facility] [address] [facility] [address] URINE COLOR Arlin YELLOW SPECIFIC GRAVITY 1.029 [...] 21, R[place] VARIANT Comment: https://www.cdc.gov/coronavirus/2019-ncov/cases-updates/variant- surveillance/variant-info.html The X[employer]ore MobilityiSeq SARS CoV 2 Insight Research Assay-GX is a next-generation sequencing (NGS) assa 2021 [facility] SEQUENCING y that determine s the complete genome sequence of the SARS-CoV-2 virus. The assay contains variant-tolerant primers to broaden and improve the coverage for variant detection and increase the sensitivity 12:00 [facility] PNL() of the panel to enable detection from lower viral titer samples. The assay is run on the [employer] Sequencer, which performs automated library preparation, sequencing, analysis, and reporting. PM The sequence an alysis includes determination of viral phylogenetic lineage by comparison to the reference strain Wuhan-Hu-1, GenBank: [id number]. Sequence determination may not be possible owing [...] and its performance characteristics determined by the [facility], which is certified under the Clinical Laboratory Improveme nt Amendments (C MARCO) as qualified to perform high complexity clinical laboratory testing. This test is validated for clinical use at [facility] and should not be regarded as investigational or for research. The FDA does not require this test to go through premarket FDA review, and therefore it has not been cleared or approved by the FDA. This report was reviewed and approved by the on-service pathologist. Ordering Provid er: JELANI SÁNCHEZ Report Released Date/Time: Dec 06, 2021 01:13 PM Reporting Lab: [facility] [address] [facility] [address] Performing Lab: [facility] [address] [facility] [id number] SARS-CoV-2 CLADE(wh) 22C (OMICRON) SARS-CoV-2 LINEAGE(wh) BA.2.12.1 Dec 06, 2021 12:00 [facility] COVID-19 AG SCREEN Specimen Type: NASAL CAVITY [facility] PANEL BINAX(405) Comment: Testi ng Performed By: Mike Briscoe Ordering Provid er: JELANI SÁNCHEZ Report Released Date/Time: Dec 08, 2021 08:23 AM Reporting Lab: [place] [facility] [address] [facility] [address] Performing Lab: [facility] [address] [facility] [address] COVID-19 AG SCRN(wrj BINAX) POSITIVE HH NE G Dec 06, 2021 12:00 PM [place] [facility] BNP(P) Sp ecimen Type: PLASMA Comment: Tests performed on Pham Wool Puller (405) [id number] Ordering Provid er: JELANI SÁNCHEZ Report Released Date/Time: Dec 06, 2021 11:57 AM Reporting Lab: [place] [facility] [address] [facility] [address] Performing Lab: [place] [facility] [address] [facility] [address] BNP(P) 224.8 H 10-100 Dec 06, 2021 12:00 PM [place] [facility] LIVER PROFILE Sp ecimen Type: PLASMA Comment: Testin g Performed on Pham Wool Puller (405) [id number] Ordering Provid er: JELANI SÁNCHEZ Report Released Date/Time: Dec 06, 2021 11:57 AM Reporting Lab: [place] [facility] [address] [facility] [address] Performing Lab: [place] [facility] [address] [facility] [address] PROTEIN, TOTAL 6.6 6.0-8.5 ALBUMIN 2.8 L 3.2-5.0 BILIRUBIN, TOTAL 0.6 0.2-1.2 ALKALINE PHOSPHATASE 134 40-150 ALT(SGPT) 13 7-52 AST(SGOT) 18 5-34 FIB-4 SCORE 1.94 <2.67 Dec 06, 2021 12:00 PM [facility] TROPONIN II Sp ecimen Type: PLASMA Comment: Tests performed on Pham Wool Puller (405) SN:[id number] Ordering Provid er: JELANI SÁNCHEZ Report Released Date/Time: Dec 06, 2021 11:57 AM Reporting Lab: [place] [facility] [address] [facility] [address] Performing Lab: [place] [facility] [address] [facility] [address] TROPONIN II 0.03 0.00-0.29 Dec 06, 2021 [place] [facility] GLU,BUN,CREAT,LYTES,CA Speci men Type: PLASMA 12:00 PM [facility] Comment: Testin g Performed on Pham Wool Puller (405) SN:[id number] Ordering Provid er: JELANI SÁNCHEZ Report Released Date/Time: Dec 06, 2021 11:57 AM Reporting Lab: [place] [facility] [address] [facility] Performing Lab: [facility] [address] [facility] UREA NITROGEN 13 7-25 SODIUM 138 135-145 POTASSIUM 3.8 3.5-5.0 CHLORIDE 103 100-110 CARBON DIOXIDE 23 20-30 ANION GAP 12 4-16 GLUCOSE 105 H 65-100 CREATININE 0.90 0.5-1.5 CALCIUM 8.7 8.5-10.5 eGFR(CKD-EPI 2020) >90.0 >60 Dec 06, 2021 [facility] COVID-19+FLU/RSV DIAGNOSTIC Spe cimen Type: NASOPHARYNX 12:00 PM [facility] PANEL(405) Comment: Tests performed on [employer] Genexpert (405) Critical results called to and read back by: ALESHIA WILKINSON RN 12/06/21 @ 1312 Ordering Provid er: JELANI SÁNCHEZ Report Released Date/Time: Dec 06, 2021 11:57 AM Reporting Lab: [facility] [address] [facility] Performing Lab: [facility] [address] [facility] FLU A(PCR) NEGATIVE NEGATIVE FLU B(PCR) NEGATIVE NEGATIVE RSV(PCR) NEGATIVE NEGATIVE COVID-19(YES-clu-LFOSCJWLN) DETECTED HH NO T DETECTED Dec 06, 2021 12:00 PM [facility] CBC PROFILE Sp ecimen Type: BLOOD No comment enter ed. Ordering Provid er: EJLANI SÁNCHEZ Report Released Date/Time: Dec 06, 2021 11:57 AM Reporting Lab: [facility] [address] [facility] Performing Lab: [facility] [address] [facility] [address] WBC 7.2 4.5-11.0 RBC 4.86 4.23-5.66 HGB [...] 233.7 32 [facility] 2021 09:43 lb [facility] Dec 06 98.2 F 91 134/59 16 /min 98 % 0 WH[facility] 2021 09:37 /min mm[Hg] [facility] Dec 06 114 129/69 21 /min 97 % [facility] 2021 06:00 /min mm[Hg] [facility] Dec 06 99 139/68 24 /min 96 % [facility] 2021 05:30 /min mm[Hg] [facility] Dec 06 98.8 F 110 120/68 23 /min 94 % 0 [facility] 2021 04:16 /min mm[Hg] [facility] Social History: Smoking Status (Most current) [...] Encounter took place. Date/Time Current Smoking Status [facility] Dec 06, 2021 11:40 AM QUIT TOBACCO USE > 7 YEARS AGO [facility] Tobacco Use History This section includes a history of the smoking, or tobacco- related health factors, that were collected on or before the date of the Encounter. The data comes from the NH facility where the Encounter took place. Date/Time Smoking Status/Tobacco Use Comment Facil ity Apr 01, 2020 01:16 PM QUIT TOBACCO USE 1-7 YEARS AGO [facility] Mar 24, 2020 03:00 PM QUIT TOBACCO USE 1-7 YEARS AGO [facility] Feb 21, 2019 04:11 PM QUIT TOBACCO USE 1-7 YEARS AGO [facility] Feb 20, 2019 03:38 PM QUIT TOBACCO USE 1-7 YEARS AGO [facility] Feb 03, 2019 09:50 AM QUIT TOBACCO USE 1-7 YEARS AGO [facility] May 25, 2016 11:53 PM QUIT TOBACCO USE IN PAST YEAR [facility] May 23, 2016 06:57 PM QUIT TOBACCO USE > [address] [facility] May 19, 2016 03:55 PM QUIT TOBACCO USE IN PAST YEAR [facility] May 19, 2016 10:29 AM QUIT TOBACCO USE 1-7 YEARS AGO [facility] May 01, 2016 07:26 PM QUIT TOBACCO USE IN PAST YEAR [facility] May 01, 2016 03:11 PM QUIT TOBACCO USE IN PAST YEAR [facility] May 01, 2016 11:19 AM QUIT TOBACCO USE IN PAST YEAR [facility] Mar 16, 2016 12:50 PM V1-PT DECLINES REF TO TOBACCO [facility] CESS PRGM Mar 16, 2016 12:50 PM V1-PT THINKING ABOUT QUIT [place] [facility] TOBACCO USE Aug 12, 2015 08:48 AM CURRENT SMOKER [facility] Yates [facility] Radiology Reports: +/- 30 days of [...] comes from all NH treatment facilities. Date/Time Radiology Report Provider Source Dec 13, 2021 12:57 PM MRI ABDOMEN W/WO CONTRAST: ETHAN,MARYELLEN [place] LUCAS MEEK N [id number] -1950 M [facility] Exm Date: DEC 13, 2021@12:57 Req Phys: ISATU TODD Loc: OP Unknown/0 12-15-2021@13:20 Img Loc: MRI IMAGING (OOS) Service: [facility] MEDICINE (Case [id number] COMPLETE) MRI ABDOMEN W/WO CONTRAST (M RI Detailed) CPT:58162 Reason for Study: further characterization of a [...] new lyphadenopathy REQUESTING MD: Isatu Todd PAGER: [phone] PHONE: [phone] Weight: 232.2 lb [105.32 kg] (12/12/2021 05:00) [...] patient will need to arrange for a car driver to take him/her home after the [...] 15, 2021 Date Verified: DEC 15, 2021 Spectroscopist E-Sig:/ES/MARYELLEN LONG Report: MRI ABDOMEN W/WO CONTRAST [...] MALIGNANCY Primary Interpreting Staff: Staff AMELIA THOMAS (Spectroscopist) / Dec 10, 2021 09:[address] ABDOMEN & PELVIS: RADIOLOGY,OUTSIDE [facility] [place] LUCAS MEEK N [id number] -1950 M [facility] Exm Date: DEC 10, 2021@09:30 Req Phys: ISATU TODD Loc: 1S MED/12-10@10:57 Img Loc: CT SCAN (OOS) Service: [facility] MEDICINE (Case [id number] COMPLETE) CT ABD & PELVIS WITHOUT CONT RAST (CT Detailed) CPT:35680 Reason for Study: 71 yo male with [...] INDEX - NO HEIGHTS FOUND Pager number: [phone] STAT orders MUST be call ed to RADIOLOGY [phone] to speak to the appropriate liquified natural gas technician. Report Status: Verified Date Reported: DEC 10, 2021 Date Verified: DEC 10, 2021 Spectroscopist E-Sig: Report: EXAM: CT abdomen and pelvis [...] ph nodes. READING PHYSICIAN: Ramone Munoz D.O. -[phone] 12/10/2021 10:55 EDT [facility] [phone] (For Medical Practitioner Use Only ) [address] [place] [address], [place] [address], [address] [place] [address] Attention Patients / Veterans: If you have ques tions or concerns about these test results, please contact your o rdering provider or primary care team. Primary Diagnostic Code: SIGNIFICANT ABNORMALIT Y, ATTN NEEDED Primary Interpreting Staff: RADIOLOGY,OUTSIDE SERVICE, Staff Physician / Dec 09, 2021 07:34 AM BASW (MODIFIED): [facility] N [id number] -1950 [facility] Exm Date: DEC 09, 2021@07:34 Req Phys: ISATU TODD Loc: 1S MED/12-09@11:26 Img Loc: XRAY (OOS) Service: [facility] MEDICINE (Case [id number] COMPLETE) BASPrincess (MODIFIED) (RAD Detaile d) CPT:64968 Contrast Media : Barium Reason for Study: dysphagia ?esophageal spasm Clinical History: Report Status: Verified Date Reported: DEC 09, 2021 Date Verified: DEC 09, 2021 Spectroscopist E-Sig:/ES/JESSIE CHENEY Report: DELISA (MODIFIED) , 12/09/2021 [...] REQUIRED Primary Interpreting Staff: JESSIE CHENEY, RADIOLOGIST (Spectroscopist) /TLC Dec 06, 2021 12:[address] CHEST (INCLUDES ADRENALS): [facility] N [id number] -1950 M [facility] Exm Date: DEC 06, 2021@12:59 Req Phys: JELANI SÁNCHEZ Loc: [facility] ED DAYS M 1RD (Req'g Loc) Img Loc: CT SCAN (OOS) Service: Unknown (Case [id number] COMPLETE) CT THORAX W/O CONT (CT Detai led) CPT:65420 Reason for Study: Opacification right chest Clinical History: No contrast allergy BUN: 13 (12/06/21 12:00) CREATI: 0.90 (12/06/21 12:00) eGFR 05/16/21 09:43 52 L Weight: 232.6 lb [105.51 kg] (12/06/2021 11:40) BODY MASS INDEX - NO HEIGHTS FOUND Pager number: [phone] STAT orders MUST be called t o RADIOLOGY [phone] to speak to the appropriate liquified natural gas technician. Indications - Other: Opacification right chest, covid positive, lung cancer histo Report Status: Verified Date Reported: DEC 06, 2021 Date Verified: DEC 06, 2021 Spectroscopist E-Sig:/ES/JESSIE CHENEY Report: CT THORAX W/O CONT [...] REQUIRED Primary Interpreting Staff: JESSIE CHENEY, RADIOLOGIST (Spectroscopist) Primary Interpreting Resident: PRINCE CHAMPION, Resident /BR Dec 06, 2021 11:58 AM CHEST SINGLE VIEW: JESSIE CHENEY LUC[place] MEEK Lei [id number] -1950 M [facility] Exm Date: DEC 06, 2021@11:58 Req Phys: JELANI SÁNCHEZ Pat Loc: [facility] ED DAYS M 1RD (Req'g Loc) Img Loc: XRAY (OOS) Service: Unknown (Case [id number] COMPLETE) CHEST SINGLE VIEW (RAD Detai led) CPT:84019 Proc Modifiers : PORTABLE EXAM Reason for Study: SOB, home covid test positive Clinical History: Report Status: Verified Date Reported: DEC 06, 2021 Date Verified: DEC 06, 2021 Spectroscopist E-Sig:/ES/JESSIE CHENEY Report: Exam type: Chest x-ray [...] REQUIRED Primary Interpreting Staff: JESSIE CHENEY, RADIOLOGIST (Spectroscopist) /AC Pathology Reports: +/- 30 days of the [...] AM LR SURGICAL PATHOLOGY REPORT: STEFANY MILLER [facility] LOCAL TITLE: LR SURGICAL PATHOLOGY REPORT [facility] STANDARD TITLE: PATHOLOGY REPORT DATE OF NOTE: JAN 03, 2022@10:28:01 ENTRY DATE: JAN 03, 2022@10:28:01 AUTHOR: NIURKA MILLER EXP COSIGNER: URGENCY: STATUS: COMPLETED $APHDR Reporting Lab: [facility] [CLIA# [id number]] [address] [place] [address] - - - - - - [...] automatically d ocumented from SURGERY package case #[id number] Field (#32) PRINCIPAL PRE-OP DIAGNOSIS, (#.72) OTHER [...] automatically d ocumented from SURGERY package case #[id number] Field (#34) PRINCIPAL POST-OP DIAG, (#.74) OTHER [...] Label: Lucas Meek Paperwork: Lucas Meek Cassette: [id number];..;KALYANI;.;405;[id number] Specimen is labeled: ES bx Received in formalin are several pieces of pale boyd and brown tissue, 1.2 x 0.7 cm in aggregate. Submitted entirely in 1 cassette [id number];..;KALYANI;.;990;[id number] SAW 12/15/2021 Microscopic exam: *+* MODIFIED REPORT *+* (Last modified: JAN 03, 2022@09:30:20 typed by NIURKA WADDELL) DIAGNOSIS: A. 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 Kendell long. TIARA Coombs was notified on 12/21/21. Modified on 01/03/22 to include report from [facility] stating that tumor is NEGATIVE for her2/ matheus amplification. The attending pathologist who signature mansoor ears on this report has reviewed all diagnostic slides and has edited t he gross and/or microscopic portion of this report in rendering the final pathologic diagnosis. [address] [address] CPT: 46948 /emely/ NIURKA Yeung MD Signed Jan 03, 2022@10:28 Performing Laboratory: Surgical Pathology Report Performed By: [facility] MONTO[facility] [CLIA# [id number]] [address] [place] [address] $FTR - - - - - - - - - - - - - - - - - - - - - - - - - - - - - - - - - - - - - - - - (End of report) NIRUKA MILLER MD Date Dec 20, 2021 - - - - - - - - - - - - - - - - - - - - - - - - - - - - - - - - - - - - - - - - LUCAS MEEK STANDARD FORM 515 ID:[id number] SEX:M :1950 AGE: 71 LOC: SDM END PCP: Isatu Todd /charmaine Yeung MD Signed: 01/03/2022 10:28 Dec 21, 2021 11:46 AM LR SURGICAL PATHOLOGY REPORT: STEFANY MILLER LOCAL TITLE: LR SURGICAL PATHOLOGY REPORT [facility] STANDARD TITLE: PATHOLOGY REPORT DATE OF NOTE: DEC 21, 2021@11:46:59 ENTRY DATE: DEC 21, 2021@11:46:59 AUTHOR: NIURKA MILLER EXP COSIGNER: URGENCY: STATUS: COMPLETED $APHDR Reporting Lab: [facility] [CLIA# [id number]] [address] [place] [address] - - - - - - [...] automatically d ocumented from SURGERY package case #[id number] Field (#32) PRINCIPAL PRE-OP DIAGNOSIS, (#.72) OTHER [...] automatically d ocumented from SURGERY package case #[id number] Field (#34) PRINCIPAL POST-OP DIAG, (#.74) OTHER [...] Label: Lucas Meek Paperwork: Lucas Meek Cassette: [id number];..;KALYANI;.;101;[id number] Specimen is labeled: ES bx Received in formalin are several pieces of pale boyd and brown tissue, 1.2 x 0.7 cm in aggregate. Submitted entirely in 1 cassette [id number];..;KALYANI;.;405;[id number] SAW 12/15/2021 Microscopic exam: DIAGNOSIS: A. 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 Kendell long. TIARA Coombs was notified on 12/21/21. The attending pathologist who signature mansoor ears on this report has reviewed all diagnostic slides and has edited t he gross and/or microscopic portion of this report in rendering the final pathologic diagnosis. [address] [address] CPT: 72544 /emely/ NIURKA Yeung MD Signed Dec 21, 2021@11:46 Performing Laboratory: Surgical Pathology Report Performed By: [facility]Y DO[facility] [place] [facility] [CLIA# [id number]] [address] [place] [address] $FTR - - - - - [...] - - LUCAS MEEK STANDARD FORM 515 ID:[id number] SEX:M :1950 AGE: 71 LOC: [facility] END PCP: Isatu Todd /emely/ NIURKA MILLER Staff Signed: 12/21/2021 11:46 Dec 06, 2021 03:30 PM LR MICROBIOLOGY REPORT: [facility] Reporting Lab: [facility] [CLIA# [id number]] [address] [place] [address] Accession [UID]: [id number] [[id number]] Receiv ed: Dec 06, 2021@16:14 Collection sample: BLOOD CUL T BOTTLE(NIRMAL/AERO)Collection date: Dec 06, 2021 15:30 Site/Specimen: BLOOD Provider: JELANI SÁNCHEZ Comment on specimen: LAC Test(s) ordered: BLOOD CULTURE ANAEROBI C....... completed: Dec 12, 2021 06:18 * BACTERIOLOGY FINAL REPORT => Dec 12, 2021 06:1 8 TECH CODE: [id number] Bacteriology Remark(s): NO GROWTH IN 5 DAYS =--=--=--=--=--=--=--=--=--=--=--=--=--= --=--=--=--=--=--=--=--=--=--=--=--=-- Performing Laboratory: Bacteriology Report Performed By: [facility] [CLIA# [id number]] [address] [place] [address] Dec 06, 2021 03:30 PM LR MICROBIOLOGY REPORT: [facility] Reporting Lab: [facility] [CLIA# [id number]] [address] [place] [address] Accession [UID]: [id number] [[id number]] Receiv ed: Dec 06, 2021@16:14 Collection sample: BLOOD CUL T BOTTLE(NIRMAL/AERO)Collection date: Dec 06, 2021 15:30 Site/Specimen: BLOOD Provider: JELANI SÁNCHEZ Comment on specimen: LAC Test(s) ordered: BLOOD CULTURE AEROBIC. ........ completed: Dec 12, 2021 06:17 * BACTERIOLOGY FINAL REPORT => Dec 12, 2021 06:1 7 TECH CODE: [id number] Bacteriology Remark(s): NO GROWTH IN 5 DAYS =--=--=--=--=--=--=--=--=--=--=--=--=--= --=--=--=--=--=--=--=--=--=--=--=--=-- Performing Laboratory: Bacteriology Report Performed By: CAREY MONTOYA [facility] [CLIA# [id number]] [address] [place] [address] Encounter Notes: All associated encounter notes This section contains the clinical notes associated to the Encounter. Date/Time Encounter Note(s) Provider Source Dec 06, 2021 05:30 INTERNAL MEDICINE ATTENDING NOTE: JACOB VARGHESE NDA C[facility]Y MONTOYA LOCAL TITLE: Attending Note Medical Service [facility] STANDARD TITLE: INTERNAL MEDICINE ATTENDING NOTE DATE OF NOTE: DEC 06, 2021@17:30 ENTRY DATE: DEC 06, 2021@17:31:01 AUTHOR: ALVARO VARGHESE EXP COSIGNER: URGENCY: STATUS: COMPLETED Mr Meek was brought to the [facility] ED today with w orsening fatigue, nausea and SOB. He reports a 6+ month hx of chest-->epigastric p ain with/after eating (not swallowing per se, as he describes it), 3 loose stools a day, and a 70+ pound weight loss over that time. 10 days ago he started feeli ng even weaker than usual, fatigued, and his SOB has progressed over this time period. His wi fe had COVID and so tested him at home and it was positive. Of note, his covid PCR is s till + today on presentation. No fevers/chills/sweats, cough is not productive , no hemoptysis. He has eaten and drank little over the last few days. CXR and CT done today reveal large area of non-a erated right lung, rightward tracheal deviation (see full report below). PROBLEM LIST: 1. 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 Cameron). -known volume loss, rightward tracheal deviatio n -Last CT scan--05/2021 2. COPD -auite tobacco 2015 3. Anorexia, nausea, near constant chest pain (? worse with swallowing) with marked weight loss -PCP trialed omeprazole starting October 2021 and o rdered EGD (not yet done) 4. Low Back Pain s/p NSGY discectomy remotely. 5. Depression --on Sertraline 6. HTN -pm Losartan, Amlodipine 7. s/p partial colectomy secondary to diverticul itis ALLERGIES: LISINOPRIL Active Inpatient Medications Status 1) ALBUTEROL INHL,ORAL 2 PUFFS INHALATION ORAL Q ID PRN ACTIVE for breathing 2) AMLODIPINE TAB 5MG PO QD please hold if systo lic <90 ACTIVE 3) CARBOXYMETHYLCELLULOSE 0.5% SOLN,OPH ONE DROP OU QID ACTIVE 4) CEFTRIAXONE 2GM/DEXTROSE 5% 50ML INJ,SOLN in ACTIVE CEFTRIAXONE 2GM/D5W 50 ML INFUSE OVER 30 MINUTE S IV QD 5) CEFTRIAXONE 2GM/DEXTROSE 5% 50ML INJ,SOLN in ACTIVE CEFTRIAXONE 2GM/D5W 50 ML INFUSE OVER 30 MINUTE S IV NOW 6) CHOLECALCIFEROL TAB 10MCG PO QD ACTIVE 7) DICLOFENAC 1% GEL,TOP 4 GRAMS TO LOWER EXTREM ITIES ACTIVE TOP QID PRN for pain/inflammation 8) LOSARTAN TAB 12.5MG PO QD please hold if syst olic ACTIVE <90 9) METRONIDAZOLE TAB 500MG PO NOW ACTIVE 10) OLODATEROL/TIOTROPIUM INHL,ORAL 2 PUFFS INHA LATION ACTIVE ORAL QD 11) OMEPRAZOLE CAP,EC 20MG PO BID-AC ACTIVE 12) REMDESIVIR INJ REMDESIVIR 100 MG in SODIUM C HLORIDE ACTIVE 0.9% INJ 100 ML INFUSE OVER 60 MINUTES IV QD 13) SERTRALINE TAB 150MG PO QD ACTIVE Pending Inpatient Medications Status 1) METRONIDAZOLE TAB 500MG PO BID PENDING EXAM: Vitals Enter at: Dec 06, 2021@16:16:48 BP: 120/68 P: 110 R: 23 T: 98.8 02: 96% RA Gen -Ill appearing 71 yo man, a and o, in NAD Lungs -No breath sounds right; scattered rhonchi left Heart -S1 S2 RRR, distant Abdomen -soft, epigastric tenderness, no rebound or guarding Ext -no c/e RELEVANT LABS: WBC: 7.2 (12/06/21 12:00) HCT: 39.6 (12/06/21 12:00) HGB: 12.4 (12/06/21 12:00) PLT: 180 (12/06/21 12:00) K: 3.8 (12/06/21 12:00) BUN: 13 (12/06/21 12:00) CREATI: 0.90 (12/06/21 12:00) HGB A1C: 5.8 (05/16/21 09:43) TSH: 1.08 (05/16/21 09:44) LFT's wnl BC pending BNP: 224 TRop:.03 Flu - COVID + CT thorax 12/06/21: Impression 1. A probable majority of the new, abnormal pul monary parenchymal findings in the residual right lung is related to a larg e volume aspiration event, possibly acute on chronic. Other proces ses such as malignancy cannot entirely be excluded but would not adequately be evaluat ed by imaging until the abnormalities related to the patient's aspiration/aspiration pneumonitis have resolved. Consider modified barium swallow with speech pathology to evaluate patient's airway protection abilities a nd aspiration risk as this examination suggests the patient is highly susceptible to a spiration events. 2. New 1.4 cm left adrenal solid lesion. [place] [facility] [place] or MRI for more definitive characterization. DISCUSSION: 71 yo man with hx right lung adenocarcinoma (dx 2016, followed at [facility]) with known volume loss and tracheal shift, as well as chronic SOB, presenting with worsening of SOB and worseni ng fatigue and weakness, with findings on CT and CXR concerning for a probable large volume aspiratio n event (although malignancy progression cannot be excluded). In addition, he has a 6 month hx of anorexia and near constant chest pain radiating to epigastric area (some sense of food getting stuck at times, but pain not clearly related to eating), with marked weight loss He was recently trialed on PPI without benefit, and was schedule d for EGD (but hasn't yet occurred). Unclear from history if this is a GI process, or more generalized result of his pulmonary findings. PLAN: 1. Right lung obstruction/volume loss with worse jerome SOB -ID is involved and has suggested Ceftriaxone a nd Metronidazole for probable aspiration pneumonia -Pulmonary team has been consulted--appreciate recommendations for next steps. -Speech/swllow study requested 2. COVID+--(initial positive test at home ~ 10 d ays ago) -as per ID suggestions, Remdesivir started toda y (200 today, 100 x 4 days. -if requiring 02, will add Dexamethasone 3. Anorexia, chest/epigastric pain -continue to monitor, consider further esophage al evaluation Mr. Meek is a full code. /emely/ ALVARO VARGHESE MD DIRECTOR OF AMBULATORY CARDIOLOGY Signed: 12/07/2021 11:16
--- OUTSIDE RECORDS SUMMARY | 2022-01-19 08:16 | XMS_ITS ---
DAILY HOSPITALIZATION DATA [facility] Encounter Summary Created on:December 07, 2021 Patient:LUCAS MEEK Sex:Male :1950 Author Organization [facility] Address [address] [place] [id number] Support Name Relationship Address Phone YUSRA MEEK Unavailable [address] [place] [address] YUSRA MEEK Unavailable [address] [place] [address] CLAY MOSLEY Unavailable Unavailable SJ SANTACRUZ Unavailable [...] MEDICARE MEDICARE PART Jun 18, PART B [id number] DO KALYANI PATIENT (WNR) (M) B 2016 13A 1 UGLAS MEDICARE MEDICARE PART Jun 18, PART A [id number] DO KALYANI PATIENT (WNR) (M) A 2016 13A 1 [place]AS MEDICARE MEDICARE PART Jun 18, PART A [id number] KALYANIDO PATIENT (WNR) (M) A 2017 VH81 2 [place]AS MEDICARE MEDICARE PART Jun 18, PART B [id number] DO KALYANI PATIENT (WNR) (M) B 2017 VH81 2 LAS UNITED MEDICARE MCR(Jun [id number] Luz MEEK PATIENT HEALTHCARE ADVANTAGE NR) 2021 37 0 [facility] (WNR) Selected Encounter This section includes the information on record at [place] for the Encounter. Date/Time Encounter Type Encounter Description Reason Provider Source Dec 07, 2021 12:28 Inpatient Visit DAILY HOSPITALIZATION DATA AM [facility] Encounter Template Text not used by [place] Plan of Treatment: Future Appointments (+ 6 [...] - [place] [facility] Jan 10, 2022 11:30 AM AM[facility]ATORY - [facility]INE [facility] Jan 24, 2022 08:00 AM [place] [facility] Feb 21, 2022 10:00 AM [place] [facility] Mar 21, 2022 10:30 AM AM[facility]ULATORY - MEDICINE [facility] Active, Pending, and Scheduled [...] the Encounter. The data comes from all [place] treatment [facility]. Test Date/Time Test Type Test Details Facility Name October 31, 2021 07:37 AM Consult Order COMMUNITY CARE-EGD [facility] Cons [facility] November 15, 2021 10:37 AM Consult Order [facility] CARE-PODIATRY Cons [facility] Dec 06, 2021 12:52 PM Pharmacy [place] Infusion Order [facility] Dec 06, 2021 03:24 PM Pharmacy - [place] [facility] Dec 06, 2021 03:40 PM Pharmacy [place] Order [facility] Dec 15, 2021 08:41 AM Consult Order SPEECH PATHOLOGY [place] OUT[place] Cons [facility] Jan 15, 2022 10:08 PM Consult Order [facility] CARE-PALLIATIVE CARE Cons [facility] Lab Results: +/- 30 days of [...] Reference Range Comment Dec 15, 2021 [place] P4 GLU,BUN,CREAT,LYTES,CA Speci men Type: PLASMA 06:43 AM [facility] Comment: Tests performed on Bombfell (405) SN:[id number] Ordering Provid er: ISATU TODD Report Released Date/Time: Dec 11, 2021 07:42 AM Reporting Lab: [facility] [address] [facility] [address] Performing Lab: [facility] [address] [facility] [address] UREA NITROGEN 9 7-25 SODIUM 137 135-145 POTASSIUM 3.8 3.5-5.0 CHLORIDE 105 100-110 CARBON DIOXIDE 26 20-30 ANION GAP 6 4-16 GLUCOSE 102 H 65-100 CREATININE 0.64 0.5-1.5 CALCIUM 8.1 L 8.5-10.5 eGFR(CKD-EPI 2020) >90.0 >60 Dec 15, 2021 06:43 AM [facility] CBC PROFILE Sp ecimen Type: BLOOD No comment enter ed. Ordering Provid er: ISATU TODD Report Released Date/Time: Dec 10, 2021 07:22 AM Reporting Lab: [facility] [address] [facility] [address] Performing Lab: [facility] [address] [facility] [address] WBC 5.7 4.5-11.0 RBC 4.22 L 4.23-5.66 [...] ABSOLUTE NRBC 0.00 0-0 Dec 14, 2021 [facility] CYTOGENETIC Specimen Type: ESOPHAGUS 02:59 PM [facility] Comment: ~For T est: CYTOGENETIC FISH([facility] [place]) ~FISH HER 2 NUE, FFPE See full report in 24x7 Learning Image display viewer/tab#LAB-Reference Ordering Provid er: NIURKA MILLER Report Released Date/Time: Dec 21, 2021 12:11 PM Reporting Lab: [facility] [address] [facility] [address] Performing Lab: [facility] CYTOGENETIC FISH([facility]) comment Dec 14, 2021 [facility] P4 GLU,BUN,CREAT,LYTES,CA Speci men Type: PLASMA 06:27 AM [facility] Comment: Tests performed on Bombfell (405) SN:[id number] Ordering Provid er: ISATU TODD Report Released Date/Time: Dec 11, 2021 07:42 AM Reporting Lab: [facility] [address] [facility] [address] Performing Lab: [facility] [address] [facility] [address] UREA NITROGEN 10 7-25 SODIUM 137 135-145 POTASSIUM 4.0 3.5-5.0 CHLORIDE 104 100-110 CARBON DIOXIDE 25 20-30 ANION GAP 8 4-16 GLUCOSE 99 65-100 CREATININE 0.67 0.5-1.5 CALCIUM 8.2 L 8.5-10.5 eGFR(CKD-EPI 2020) >90.0 >60 Dec 14, 2021 06:27 AM [facility] CBC PROFILE Sp ecimen Type: BLOOD No comment enter ed. Ordering Provid er: ISATU TODD Report Released Date/Time: Dec 10, 2021 07:22 AM Reporting Lab: [facility] [address] [facility] [address] Performing Lab: [facility] [address] [facility] [address] WBC 6.0 4.5-11.0 RBC 4.29 4.23-5.66 HGB [...] ABSOLUTE NRBC 0.00 0-0 Dec 13, 2021 [facility] P4 GLU,BUN,CREAT,LYTES,CA Speci men Type: PLASMA 06:34 AM [facility] Comment: Tests performed on Bombfell (405) SN:[id number] Ordering Provid er: ISATU TODD Report Released Date/Time: Dec 11, 2021 07:42 AM Reporting Lab: [facility] [address] [facility] [address] Performing Lab: [facility] [address] [facility] [address] UREA NITROGEN 12 7-25 SODIUM 136 135-145 POTASSIUM 3.9 3.5-5.0 CHLORIDE 105 100-110 CARBON DIOXIDE 24 20-30 ANION GAP 7 4-16 GLUCOSE 102 H 65-100 CREATININE 0.66 0.5-1.5 CALCIUM 8.3 L 8.5-10.5 eGFR(CKD-EPI 2020) >90.0 >60 Dec 13, 2021 06:34 AM [facility] CBC PROFILE Sp ecimen Type: BLOOD No comment enter ed. Ordering Provid er: ISATU TODD Report Released Date/Time: Dec 10, 2021 07:22 AM Reporting Lab: [facility] [address] [facility] [address] Performing Lab: [facility] [address] [facility] [address] WBC 5.6 4.5-11.0 RBC 4.28 4.23-5.66 HGB [...] ABSOLUTE NRBC 0.00 0-0 Dec 12, 2021 [facility] P4 GLU,BUN,CREAT,LYTES,CA Speci men Type: PLASMA 06:21 AM [facility] Comment: Tests performed on Bombfell (405) SN:[id number] Ordering Provid er: ISATU TODD Report Released Date/Time: Dec 11, 2021 07:42 AM Reporting Lab: [facility] [address] [facility] [address] Performing Lab: [facility] [address] [facility] [address] UREA NITROGEN 11 7-25 SODIUM 139 135-145 POTASSIUM 4.1 3.5-5.0 CHLORIDE 107 100-110 CARBON DIOXIDE 24 20-30 ANION GAP 8 4-16 GLUCOSE 110 H 65-100 CREATININE 0.70 0.5-1.5 CALCIUM 8.3 L 8.5-10.5 eGFR(CKD-EPI 2020) >90.0 >60 Dec 12, 2021 06:21 AM [facility] CBC PROFILE Sp ecimen Type: BLOOD No comment enter ed. Ordering Provid er: ISATU TODD Report Released Date/Time: Dec 10, 2021 07:22 AM Reporting Lab: [facility] [address] [facility] [address] Performing Lab: [facility] [address] [facility] [address] WBC 5.5 4.5-11.0 RBC 4.37 4.23-5.66 HGB [...] 0.00 0-0 Dec 12, 2021 06:00 AM [facility] MAGNESIUM Sp ecimen Type: PLASMA Comment: Testin g Performed on Bombfell (405) SN:[id number] Ordering Provid er: ISATU TODD Report Released Date/Time: Dec 12, 2021 08:24 AM Reporting Lab: [place] [facility] [address] [facility] [address] Performing Lab: [employer] [place] [facility]Up[facility] [address] [facility] [address] MAGNESIUM 1.8 1.6-2.6 Dec 12, 2021 06:00 AM [employer]T [facility] PHOSPHORUS Sp ecimen Type: PLASMA Comment: Testin g Performed on Bombfell (405) SN:[id number] Ordering Provid er: ISATU TODD Report Released Date/Time: Dec 12, 2021 08:24 AM Reporting Lab: [place] [facility] [address] [facility] [address] Performing Lab: [place] [facility] [address] [facility] [address] PHOSPHORUS 3.1 2.5-5.0 Dec 11, 2021 06:15 AM [employer] [place] [facility]T [facility] ELECTROLYTES Sp ecimen Type: PLASMA Comment: Tests performed on Bombfell (405) SN:[id number] Ordering Provid er: ISATU TODD Report Released Date/Time: Dec 10, 2021 07:22 AM Reporting Lab: [place] [facility] [address] [facility] [address] Performing Lab: [place] [facility] [address] [facility] [address] SODIUM 137 135-145 POTASSIUM 4.3 3.5-5.0 CHLORIDE 108 100-110 CARBON DIOXIDE 20 20-30 ANION GAP 9 4-16 Dec 11, 2021 06:15 AM [place] InQ BiosciencesT [facility] CBC PROFILE Sp ecimen Type: BLOOD Comment: Result s checked Ordering Provid er: ISATU TODD Report Released Date/Time: Dec 10, 2021 07:22 AM Reporting Lab: [place] OMEGAT [facility] [address] [facility] [address] Performing Lab: [facility] [place] OMEGAT [facility] [address] [facility] [address] WBC 5.8 4.5-11.0 RBC 4.37 4.23-5.66 HGB [...] 0.00 0-0 Dec 11, 2021 06:[address] [facility] PHOSPHORUS Sp ecimen Type: PLASMA Comment: Tests performed on Bombfell (936) SN:[id number] Results checked Ordering Provid er: ISATU TODD Report Released Date/Time: Dec 11, 2021 07:44 AM Reporting Lab: [facility] [address] [facility] [address] Performing Lab: [place] OMEGAT SD[facility] [address] [facility] [address] PHOSPHORUS 3.0 2.5-5.0 Dec 10, 2021 08:05 AM [place] [facility] MAGNESIUM Sp ecimen Type: PLASMA Comment: [place] [id number] on Dec 10, 2021@08:31 Tests performed on Bombfell (405) SN:[id number] Ordering Provid er: ISATU TODD Report Released Date/Time: Dec 10, 2021 07:22 AM Reporting Lab: [place] [facility] [address] [place] [facility] [place] [address] Performing Lab: [place] [facility] [address] [place] [facility] [place] [address] MAGNESIUM 1.7 1.6-2.6 Dec 10, 2021 08:05 AM [place] [facility] PHOSPHORUS Sp ecimen Type: PLASMA Comment: [place] [id number] on Dec 10, 2021@08:31 Tests performed on Bombfell (405) SN:[id number] Ordering Provid er: ISATU TODD Report Released Date/Time: Dec 10, 2021 07:22 AM Reporting Lab: [place] [facility] [address] [place] [facility] [place] [address] Performing Lab: [place] [facility] [address] [place] [facility] [place] [address] PHOSPHORUS 1.8 L 2.5-5.0 Dec 10, 2021 08:05 AM [place] UREA NITROGEN Specimen Type: PLASMA [facility] Comment: [place] [id number] on Dec 10, 2021@08:31 Tests performed on Bombfell (405) SN:[id number] Ordering Provid er: ISATU TODD Report Released Date/Time: Dec 10, 2021 07:22 AM Reporting Lab: [place] [facility] [address] [place] [facility] [place] [address] Performing Lab: [place] [facility] [address] [place] [facility] [place] [address] UREA NITROGEN 8 7-25 Dec 10, 2021 08:05 AM [place] [facility] CALCIUM Sp ecimen Type: PLASMA Comment: [place] [id number] on Dec 10, 2021@08:31 Tests performed on Bombfell (405) SN:[id number] Ordering Provid er: ISATU TODD Report Released Date/Time: Dec 10, 2021 07:22 AM Reporting Lab: [place] [facility] [address] [facility] [address] Performing Lab: [place] [facility] [address] [facility] [address] CALCIUM 8.3 L 8.5-10.5 Dec 10, 2021 08:05 [place] CREATININE WITH eGFR Specime n Type: PLASMA AM [facility] PANEL Comment[place] [id number] on Dec 10, 2021@08:31 Tests performed on Pham Crowdnetic (405) SN:[id number] Ordering Provid er: ISATU TODD Report Released Date/Time: Dec 10, 2021 07:22 AM Reporting Lab: [place] [facility] [address] [facility] [address] Performing Lab: [place] [facility] [address] [facility] [address] CREATININE 0.78 0.5-1.5 eGFR(CKD-EPI 2020) >90.0 >60 Dec 10, 2021 08:05 AM [place] [facility] GLUCOSE Sp ecimen Type: PLASMA Comment: [place] [id number] on Dec 10, 2021@08:31 Tests performed on Pham Crowdnetic (405) SN:[id number] Ordering Provid er: ISATU TODD Report Released Date/Time: Dec 10, 2021 07:22 AM Reporting Lab: [place] [facility] [address] [facility] [address] Performing Lab: [place] [facility] [address] [facility] [address] GLUCOSE 144 H 65-100 Dec 10, 2021 08:05 AM [place] [facility] CBC PROFILE Sp ecimen Type: BLOOD No comment enter ed. Ordering Provid er: ISATU TODD Report Released Date/Time: Dec 10, 2021 07:22 AM Reporting Lab: [place] [facility] [address] [facility] [address] Performing Lab: [place] [facility] [address] [facility] [address] WBC 7.0 4.5-11.0 RBC 4.54 4.23-5.66 HGB [...] 0.00 0-0 Dec 10, 2021 08:[address] [facility] ELECTROLYTES Sp ecimen Type: PLASMA Comment: [place] [id number] on Dec 10, 2021@08:31 Tests performed on Bombfell (405) SN:[id number] Ordering Provid er: ISATU TODD Report Released Date/Time: Dec 10, 2021 07:22 AM Reporting Lab: [facility] [address] [facility] [address] Performing Lab: [facility] [address] [facility] [address] SODIUM 139 135-145 POTASSIUM 3.7 3.5-5.0 CHLORIDE 107 100-110 CARBON DIOXIDE 24 20-30 ANION GAP 8 4-16 Dec 09, 2021 06:46 AM [place] [facility] MAGNESIUM Sp ecimen Type: PLASMA Comment: Tests performed on Bombfell (405) SN:[id number] Ordering Provid er: ISATU TODD Report Released Date/Time: Dec 08, 2021 10:23 AM Reporting Lab: [place] [facility] [address] [facility] [address] Performing Lab: [facility] [address] [facility] [address] MAGNESIUM 1.6 1.6-2.6 Dec 09, 2021 [facility] P4 GLU,BUN,CREAT,LYTES,CA Speci men Type: PLASMA 06:46 AM [facility] Comment: Tests performed on Bombfell (405) SN:[id number] Ordering Provid er: ISATU TODD Report Released Date/Time: Dec 08, 2021 05:00 PM Reporting Lab: [facility] [address] [facility] [address] Performing Lab: [facility] [address] [facility] [address] UREA NITROGEN 6 L 7-25 SODIUM 134 L 135-145 POTASSIUM 3.7 3.5-5.0 CHLORIDE 103 100-110 CARBON DIOXIDE 23 20-30 ANION GAP 8 4-16 GLUCOSE 112 H 65-100 CREATININE 0.70 0.5-1.5 CALCIUM 8.1 L 8.5-10.5 eGFR(CKD-EPI 2020) >90.0 >60 Dec 09, 2021 06:46 AM [facility] CBC PROFILE Sp ecimen Type: BLOOD No comment enter ed. Ordering Provid er: ISATU TODD Report Released Date/Time: Dec 08, 2021 05:00 PM Reporting Lab: [facility] [address] [facility] [address] Performing Lab: [facility] [address] [facility] [address] WBC 7.1 4.5-11.0 RBC 4.40 4.23-5.66 HGB [...] 0.00 0-0 Dec 08, 2021 06:39 AM [place] [employer] [facility] MAGNESIUM Sp ecimen Type: PLASMA Comment: Testin g Performed on Bombfell (405) SN:[id number] Ordering Provid er: ISATU TODD Report Released Date/Time: Dec 07, 2021 10:32 AM Reporting Lab: [facility] [address] [facility] [address] Performing Lab: [facility] [address] [facility] [address] MAGNESIUM 1.5 L 1.6-2.6 Dec 08, 2021 [place] T P4 GLU,BUN,CREAT,LYTES,CA Speci men Type: PLASMA 06:39 AM [facility] Comment: Testin g Performed on Bombfell (405) SN:[id number] Ordering Provid er: ISATU TODD Report Released Date/Time: Dec 07, 2021 10:32 AM Reporting Lab: [employer] T [facility] [address] [facility] [address] Performing Lab: [facility] [address] [facility] [address] UREA NITROGEN 6 L 7-25 SODIUM 136 135-145 POTASSIUM 3.3 L 3.5-5.0 CHLORIDE 104 100-110 CARBON DIOXIDE 22 20-30 ANION GAP 10 4-16 GLUCOSE 133 H 65-100 CREATININE 0.76 0.5-1.5 CALCIUM 8.4 L 8.5-10.5 eGFR(CKD-EPI 2020) >90.0 >60 Dec 08, 2021 06:39 AM [place] Ed[employer] T [facility] CBC PROFILE Sp ecimen Type: BLOOD No comment enter ed. Ordering Provid er: ISATU TODD Report Released Date/Time: Dec 07, 2021 10:32 AM Reporting Lab: [facility] [address] [facility] [address] Performing Lab: [facility] [address] [facility] [address] WBC 8.4 4.5-11.0 RBC 4.75 4.23-5.66 HGB [...] ABSOLUTE NRBC 0.00 0-0 Dec 07, 2021 [facility] P4 GLU,BUN,CREAT,LYTES,CA Speci men Type: PLASMA 06:42 AM [facility] Comment: Tests performed on Bombfell (405 SN:[id number] Ordering Provid er: PORFIRIO WALTERS Report Released Date/Time: Dec 06, 2021 06:57 PM Reporting Lab: [facility] [address] [facility] [address] Performing Lab: [facility] [address] [facility] [address] UREA NITROGEN 9 7-25 SODIUM 135 135-145 POTASSIUM 3.5 3.5-5.0 CHLORIDE 103 100-110 CARBON DIOXIDE 22 20-30 ANION GAP 10 4-16 GLUCOSE 92 65-100 CREATININE 0.73 0.5-1.5 CALCIUM 8.0 L 8.5-10.5 eGFR(CKD-EPI 2020) >90.0 >60 Dec 07, 2021 06:42 [place] LIVER PROFILE Specimen Typ e: PLASMA AM [facility] Comment: Tests performed on [employer] Founder (405) SN:[id number] Ordering Provid er: PORFIRIO WALTERS Report Released Date/Time: Dec 06, 2021 06:57 PM Reporting Lab: [facility] [address] [facility] [address] Performing Lab: [facility] [address] [facility] [address] PROTEIN, TOTAL 5.7 L 6.0-8.5 ALBUMIN 2.4 L 3.2-5.0 BILIRUBIN, TOTAL 0.4 0.2-1.2 ALKALINE PHOSPHATASE 109 40-150 ALT(SGPT) 10 7-52 AST(SGOT) 15 5-34 FIB-4 SCORE 1.92 <2.67 Dec 07, 2021 06:42 AM [facility] CBC PROFILE Specimen Type: BLOOD [facility] No comment enter ed. Ordering Provid er: PORFIRIO WALTERS Report Released Date/Time: Dec 06, 2021 06:57 PM Reporting Lab: [facility] [address] [facility] [address] Performing Lab: [facility] [address] [facility] [address] WBC 5.7 4.5-11.0 RBC 4.15 L 4.23-5.66 [...] [facility]AM[facility] %) AUTOMATED Comment: Tests performed on Bombfell (405) SN:[id number] Ordering Provid er: ISATU TODD Report Released Date/Time: Dec 07, 2021 10:28 AM Reporting Lab: [place] [facility] [address] [facility] [address] Performing Lab: [place] [facility] [address] [facility] [address] RETICULOCYTES (%) AUTOMATED 1.23 0. 6-2.0 RETICULOCYTES (ABS) AUTOMATED 0.052 0.030-0.090 Dec 06, 2021 09:45 [place] MRSA SURVL NARES Specimen Ty pe: NARES PM [facility] DNA No comment enter ed. Ordering Provid er: ALVARO VARGHESE Report Released Date/Time: Dec 07, 2021 02:20 AM Reporting Lab: [place] [facility] [address] [facility] [address] Performing Lab: [place] [facility] [address] [facility] [address] MRSA SURVL NARES DNA NEGATIVE NEGATIVE Dec 06, 2021 06:00 [place] URINALYSIS W/REFLEX TO Speci men Type: URINE PM [facility] CULTURE No comment enter ed. Ordering Provid er: JELANI SÁNCHEZ Report Released Date/Time: Dec 06, 2021 11:57 AM Reporting Lab: [place] [facility] [address] [facility] [address] Performing Lab: [place] [facility] [address] [facility] [address] URINE COLOR Arlin YELLOW SPECIFIC GRAVITY 1.029 [...] 21, RIVER VARIANT Comment: https://www.cdc.gov/coronavirus/2019-ncov/cases-updates/variant- surveillance/variant-info.html The [employer] SARS CoV 2 [employer] Research Assay-GX is a next-generation sequencing (NGS) assa 2021 [facility] SEQUENCING y that determine s the complete genome sequence of the SARS-CoV-2 virus. The assay contains variant-tolerant primers to broaden and improve the coverage for variant detection and increase the sensitivity 12:00 [facility] PNL(WH) of the panel to enable detection from lower viral titer samples. The assay is run on the ProFib[employer] Sequencer, which performs automated library preparation, sequencing, analysis, and reporting. PM The sequence an alysis includes determination of viral phylogenetic lineage by comparison to the reference strain Wu[place]-Hu-1, GenBank: [id number]. Sequence determination may not be possible owing [...] Dec 06, 2021 01:13 PM Reporting Lab: [facility] [address] [facility] [address] Performing Lab: [facility] [address] [facility] [address] SARS-CoV-2 CLADE() 22C (OMICRON) SARS-CoV-2 LINEAGE() BA.2.12.1 Dec 06, 2021 12:00 [facility] COVID-19 AG SCREEN Specimen Type: NASAL CAVITY PM [facility] PANEL BINAX(405) Comment: Testi ng Performed By: Mike Briscoe Ordering Provid er: JELANI SÁNCHEZ Report Released Date/Time: Dec 08, 2021 08:23 AM Reporting Lab: [facility] [address] [facility] [address] Performing Lab: [facility] [address] [facility] [address] COVID-19 AG SCRN(wrj BINAX) POSITIVE HH NE G Dec 06, 2021 12:[address] [facility] LIVER PROFILE Sp ecimen Type: PLASMA Comment: Testin g Performed on Pham [employer] Founder (405) SN:[id number] Ordering Provid er: JELANI SÁNCHEZ Report Released Date/Time: Dec 06, 2021 11:57 AM Reporting Lab: [facility] [address] [facility] [address] Performing [facility]: [facility] [address] [facility] [address] PROTEIN, TOTAL 6.6 6.0-8.5 ALBUMIN 2.8 L 3.2-5.0 BILIRUBIN, TOTAL 0.6 0.2-1.2 ALKALINE PHOSPHATASE 134 40-150 ALT(SGPT) 13 7-52 AST(SGOT) 18 5-34 FIB-4 SCORE 1.94 <2.67 Dec [facility], [address] [facility] GLU,BUN,CREAT,LYTES,CA Speci men Type: PLASMA 12:00 PM [facility] Comment: Testin g Performed on [employer] (405) SN:[id number] Ordering Provid er: JELANI SÁNCHEZ Report Released Date/Time: Dec 06, 2021 11:57 AM Reporting [facility] [address] [facility] [address] Performing Lab: [facility] [address] [facility] [address] UREA NITROGEN 13 7-25 SODIUM 138 135-145 POTASSIUM 3.8 3.5-5.0 CHLORIDE 103 100-110 CARBON DIOXIDE 23 20-30 ANION GAP 12 4-16 GLUCOSE 105 H 65-100 CREATININE 0.90 0.5-1.5 CALCIUM 8.7 8.5-10.5 eGFR(CKD-EPI 2020) >90.0 >60 Dec 06, 2021 12:[address] [facility] TROPONIN II Sp ecimen Type: PLASMA Comment: Tests performed on Pham [employer] (405) [id number] Ordering Provid er: JELANI SÁNCHEZ Report Released Date/Time: Dec 06, 2021 11:57 AM Reporting [facility] [address] [facility] [address] Performing Lab: [facility] [address] [facility] [address] TROPONIN II 0.03 0.00-0.29 Dec 06, [address] [facility] COVID-19+FLU/RSV DIAGNOSTIC Spe cimen Type: NASOPHARYNX 12:00 PM [facility] PANEL(405) Comment: Tests performed on [employer] (405) Critical results called to and read back by: ALESHIA WILKINSON RN 12/06/21 @ 1312 Ordering Provid er: JELANI SÁNCHEZ Report Released Date/Time: Dec 06, 2021 11:57 AM Reporting [facility] [address] [facility] [address] Performing Lab: [facility] [address] [facility] [address] FLU A(PCR) NEGATIVE NEGATIVE FLU B(PCR) NEGATIVE NEGATIVE RSV(PCR) NEGATIVE NEGATIVE COVID-19(DPA-usp-AVGDMDWXS) DETECTED HH NO T DETECTED Dec 06, 2021 12:[address] [facility] B[facility](P[facility] Sp ecimen Type: PLASMA Comment: Tests performed on [employer] (405) SN:[id number] Ordering Provid er: JELANI SÁNCHEZ Report Released Date/Time: Dec 06, 2021 11:57 AM Reporting Lab: [facility] [address] [facility] [address] Performing Lab: [facility] [address] [facility] [address] BNP(P) 224.8 H 10-100 Dec 06, 2021 12:00 PM [facility] CBC PROFILE Sp ecimen Type: BLOOD No comment enter ed. Ordering Provid er: JELANI SÁNCHEZ Report Released Date/Time: Dec 06, 2021 11:57 AM Reporting Lab: [facility] [address] [facility] [address] [facility] [address] [facility] [address] WBC 7.2 4.5-11.0 RBC 4.86 4.23-5.66 HGB [...] dy Source Pressure Rate Mass Index Dec 07, 97.9 F 100 138/56 16 /min 98 % 0 WHITE 2021 11:00 /min mm[Hg] [facility] Dec 07, 95 144/57 18 /min 98 % 0 WHITE 2021 03:08 /min mm[Hg] R[facility] PM T [facility] Dec 07, 96.3 F WHITE 2021 06:07 [facility] Dec 07, 88 141/85 16 /min 95 % 0 WHITE 2021 06:03 /min mm[Hg] [facility] Dec 07, 6 WHITE 2021 12:47 [facility] Social History: Smoking Status (Most current) [...] > 7 YEARS AGO [facility] Tobacco Use History This section includes a history of the smoking, or tobacco- related health factors, that were collected on or before the date of the Encounter. The data comes from the [place] facility where the Encounter took place. Date/Time Smoking Status/Tobacco Use Comment [facility] Apr 01, 2020 01:16 PM QUIT TOBACCO USE 1-7 YEARS AGO [facility] Mar 24, 2020 03:00 PM QUIT [...] TOBACCO USE IN PAST YEAR [facility] May 01, 2016 03:11 PM QUIT TOBACCO USE IN PAST YEAR [facility] May 01, 2016 11:19 AM QUIT TOBACCO USE IN PAST YEAR [facility] Mar 16, 2016 12:50 PM V1-PT DECLINES REF TO TOBACCO [facility] CESS PRGM Mar 16, 2016 12:50 PM V1-PT THINKING ABOUT QUIT [facility] TOBACCO USE Aug 12, 2015 08:48 AM CURRENT SMOKER [facility] Radiology Reports: +/- 30 days of [...] the Encounter. The data comes from all [place] treatment facilities. Date/Time Radiology Report Provider Source Dec 13, 2021 12:57 PM MRI ABDOMEN W/WO CONTRAST: MARYELLEN LONG LUCAS LARES N [id number] -1950 [facility] Exm Date: DEC 13, 2021@12:57 Req Phys: ISATU TODD Loc: OP Unknown/0 12-15-2021@13:20 Img Loc: MRI IMAGING (OOS) Service: ZZGENERAL MEDICINE (Case [id number] COMPLETE) MRI ABDOMEN W/WO CONTRAST (M RI Detailed) CPT:62112 Reason for Study: further characterization of a [...] new lyphadenopathy REQUESTING MD: Isatu Todd PAGER: [phone] PHONE: [phone] Weight: 232.2 lb [105.32 kg] (12/12/2021 05:00) [...] patient will need to arrange for a boat driver to take him/her home after the [...] 15, 2021 Date Verified: DEC 15, 2021 Steam Fitter Helper E-Sig:/ES/MARYELLEN LONG Report: MRI ABDOMEN W/WO CONTRAST [...] MALIGNANCY Primary Interpreting Staff: Staff AMELIA THOMAS (Steam Fitter Helper) / Dec 10, 2021 09:[address] ABDOMEN & PELVIS: [facility] KALYANILUCAS N [id number] -1950 M [facility] Exm Date: DEC 10, 2021@09:30 Req Phys: ISATU TODD Loc: 1S MED/12-10@10:57 Img Loc: CT SCAN (OOS) Service: [facility] MEDICINE (Case [id number] COMPLETE) CT ABD & PELVIS WITHOUT CONT RAST (CT Detailed) CPT:12621 Reason for Study: 71 yo male with [...] INDEX - NO HEIGHTS FOUND Pager number: [phone] STAT orders MUST be call ed to RADIOLOGY [phone] to speak to the appropriate bicycle technician. Report Status: Verified Date Reported: DEC 10, 2021 Date Verified: DEC 10, 2021 Steam Fitter Helper E-Sig: Report: EXAM: CT abdomen and pelvis [...] ph nodes. READING PHYSICIAN: Ramone Munoz D.O. [phone] 12/10/2021 10:55 EDT [facility] National Teleradiology Program [phone] (For Medical Practitioner Use Only ) [address], [facility] [address] [place] [address] Attention Patients / Veterans: If you have ques tions or concerns about these test results, please contact your o rdering provider or primary care team. Primary Diagnostic Code: SIGNIFICANT ABNORMALIT Y, ATTN NEEDED Primary Interpreting Staff: RADIOLOGY,OUTSIDE SERVICE, Staff Physician / Dec 09, 2021 07:34 AM BASW (MODIFIED): JESSIE CHENEY [facility] LUCAS MEEK N [id number] -1950 M [facility] Exm Date: DEC 09, 2021@07:34 Req Phys: ISATU TODD Loc: 1S /12-09@11:26 Img Loc: XRAY (OOS) Service: [facility] MEDICINE (Case [id number] COMPLETE) BASW (MODIFIED) (RAD Detaile d) CPT:93268 Contrast Media : Barium Reason for Study: dysphagia ?esophageal spasm Clinical History: Report Status: Verified Date Reported: DEC 09, 2021 Date Verified: DEC 09, 2021 Steam Fitter Helper E-Sig:/ES/JESSIE CHENEY Report: BASPrincess (MODIFIED) , 12/09/2021 TECHNIQUE: Real-time fluoroscopic images [...] REQUIRED Primary Interpreting Staff: JESSIE CHENEY, RADIOLOGIST (Steam Fitter Helper) /TLC Dec 06, 2021 12:[address] CHEST (INCLUDES ADRENALS): JESSIE CHENEY [facility] LUCAS MEEK N [id number] -1950 M [facility] Exm Date: DEC 06, 2021@12:59 Req Phys: GONZALOJELANI ORLANDO Loc: [facility] ED DAYS M 1RD (Req'g Loc) Img Loc: CT SCAN (OOS) Service: Unknown (Case [id number] COMPLETE) CT THORAX W/O CONT (CT Detai led) CPT:09641 Reason for Study: Opacification right chest Clinical History: No contrast allergy BUN: 13 (12/06/21 12:00) CREATI: 0.90 (12/06/21 12:00) eGFR 05/16/21 09:43 52 L Weight: 232.6 lb [105.51 kg] (12/06/2021 11:40) BODY MASS INDEX - NO HEIGHTS FOUND Pager number: [phone] STAT orders MUST be called t o RADIOLOGY [phone] to speak to the appropriate bicycle technician. Indications - Other: Opacification right chest, covid positive, lung cancer histo Report Status: Verified Date Reported: DEC 06, 2021 Date Verified: DEC 06, 2021 Steam Fitter Helper E-Sig:/ES/JESSIE CHENEY Report: CT THORAX W/O CONT [...] REQUIRED Primary Interpreting Staff: JESSIE CHENEY, RADIOLOGIST (Steam Fitter Helper) Primary Interpreting Resident: PRINCE CHAMPION, Resident /BR Dec 06, 2021 11:58 AM CHEST SINGLE VIEW: JESSIE CHENEY LUCAS MEEK Lei [id number] -1950 [facility] Exm Date: DEC 06, 2021@11:58 Req Phys: JELANI SÁNCHEZ Pat Loc: [facility] ED DAYS M 1RD (Req'g Loc) Img Loc: XRAY (OOS) Service: Unknown (Case [id number] COMPLETE) CHEST SINGLE VIEW (RAD Detai led) CPT:80305 Proc Modifiers : PORTABLE EXAM Reason for Study: SOB, home covid test positive Clinical History: Report Status: Verified Date Reported: DEC 06, 2021 Date Verified: DEC 06, 2021 Steam Fitter Helper E-Sig:/ES/JESSIE CHENEY Report: Exam type: Chest x-ray [...] REQUIRED Primary Interpreting Staff: JESSIE CHENEY, RADIOLOGIST (Steam Fitter Helper) /TLC Pathology Reports: +/- 30 days of [...] the Encounter. The data comes from all [place] treatment facilities. Date/Time Pathology Report Provider Source Jan 03, 2022 10:28 AM LR SURGICAL PATHOLOGY REPORT: TSEFANY MILLER [place] LOCAL TITLE: LR SURGICAL PATHOLOGY REPORT [facility] STANDARD TITLE: PATHOLOGY REPORT DATE OF NOTE: JAN 03, 2022@10:28:01 ENTRY DATE: JAN 03, 2022@10:28:01 AUTHOR: NIURKA MILLER EXP COSIGNER: URGENCY: STATUS: COMPLETED $APHDR Reporting Lab: [facility] [CLIA# [id number]] [address] [place] [address] - - - - - - [...] automatically d ocumented from SURGERY package case #[id number] Field (#32) PRINCIPAL PRE-OP DIAGNOSIS, (#.72) OTHER [...] automatically d ocumented from SURGERY package case #[id number] Field (#34) PRINCIPAL POST-OP DIAG, (#.74) OTHER [...] Label: Lucas Meek Paperwork: Lucas Meek Cassette: [id number];..;KALYANI;.;405;[phone] Specimen is labeled: ES bx Received in formalin are several pieces of pale boyd and brown tissue, 1.2 x 0.7 cm in aggregate. Submitted entirely in 1 cassette [id number];..;KALYANI;.;405;[phone] SAW 12/15/2021 Microscopic exam: *+* MODIFIED REPORT *+* (Last modified: JAN 03, 2022@09:30:20 typed by NIURKA WADDELL) DIAGNOSIS: A. 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 Kendell long. TIARA Coombs was notified on 12/21/21. Modified on 01/03/22 to include report from [facility] stating that tumor is NEGATIVE for her2/ matheus amplification. The attending pathologist who signature mansoor ears on this report has reviewed all diagnostic slides and has edited t he gross and/or microscopic portion of this report in rendering the final pathologic diagnosis. [address] [address] CPT: 39021 /emely/ NIURKA Yeung MD Signed Jan 03, 2022@10:28 Performing Laboratory: Surgical Pathology Report Performed By: [facility] [CLIA# [id number]] [address] [place] [address] $FTR - - - - - [...] - - LUCAS MEEK STANDARD FORM 515 ID:[id number] SEX:M :1950 AGE: 71 LOC: [facility] END PCP: Isatu Todd /emely/ NIURKA MILLER Staff Signed: 01/03/2022 10:28 Dec 21, 2021 11:46 AM LR SURGICAL PATHOLOGY REPORT: STEFANY MILLER [place] LOCAL TITLE: LR SURGICAL PATHOLOGY REPORT [facility] STANDARD TITLE: PATHOLOGY REPORT DATE OF NOTE: DEC 21, 2021@11:46:59 ENTRY DATE: DEC 21, 2021@11:46:59 AUTHOR: NIURKA MILLER EXP COSIGNER: URGENCY: STATUS: COMPLETED $APHDR Reporting Lab: [facility] [CLIA# [id number]] [address] [place] [address] - - - - - - [...] automatically d ocumented from SURGERY package case #[id number] Field (#32) PRINCIPAL PRE-OP DIAGNOSIS, (#.72) OTHER [...] automatically d ocumented from SURGERY package case #[id number] Field (#34) PRINCIPAL POST-OP DIAG, (#.74) OTHER [...] Label: Lucas Meek Paperwork: Lucas Meek Cassette: [id number];..;KALYANI;.;405;[phone] Specimen is labeled: ES bx Received in formalin are several pieces of pale boyd and brown tissue, 1.2 x 0.7 cm in aggregate. Submitted entirely in 1 cassette [id number];..;KALYANI;.;405;[phone] SAW 12/15/2021 Microscopic exam: DIAGNOSIS: A. 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 Kendell long. TIARA Coombs was notified on 12/21/21. The attending pathologist who signature mansoor ears on this report has reviewed all diagnostic slides and has edited t he gross and/or microscopic portion of this report in rendering the final pathologic diagnosis. [address] [address] CPT: 04504 /emely/ NIURKA Yeung MD Signed Dec 21, 2021@11:46 Performing Laboratory: Surgical Pathology Report Performed By: [facility] [CLIA# [id number]] [address] [place] [address] $FTR - - - - - [...] - - LUCAS MEEK STANDARD FORM 515 ID:[id number] SEX:M :1950 AGE: 71 LOC: [facility] END PCP: Isatu Todd /charmaine Yeung MD Signed: 12/21/2021 11:46 Dec 06, 2021 03:30 PM LR MICROBIOLOGY REPORT: [facility] Reporting Lab: [facility] [CLIA# [id number]] [address] [place] [address] Accession [UID]: [id number] [[id number]] Receiv ed: Dec 06, 2021@16:14 Collection sample: BLOOD CUL T BOTTLE(NIRMAL/AERO)Collection date: Dec 06, 2021 15:30 Site/Specimen: BLOOD Provider: JELANI SÁNCHEZ Comment on specimen: LAC Test(s) ordered: BLOOD CULTURE ANAEROBI C....... completed: Dec 12, 2021 06:18 * BACTERIOLOGY FINAL REPORT => Dec 12, 2021 06:1 8 TECH CODE: 56107 Bacteriology Remark(s): NO GROWTH IN 5 DAYS =--=--=--=--=--=--=--=--=--=--=--=--=--= --=--=--=--=--=--=--=--=--=--=--=--=-- Performing Laboratory: Bacteriology Report Performed By: [facility] [CLIA# [id number]] [address] [place] [address] Dec 06, 2021 03:30 PM LR MICROBIOLOGY REPORT: [facility] Reporting Lab: [facility] [CLIA# [id number]] [address] [place] [address] Accession [UID]: [id number] [[id number]] Receiv ed: Dec 06, 2021@16:14 Collection sample: BLOOD CUL T BOTTLE(NIRMAL/AERO)Collection date: Dec 06, 2021 15:30 Site/Specimen: BLOOD Provider: JELANI SÁNCHEZ Comment on specimen: LAC Test(s) ordered: BLOOD CULTURE AEROBIC. ........ completed: Dec 12, 2021 06:17 * BACTERIOLOGY FINAL REPORT => Dec 12, 2021 06:1 7 TECH CODE: [id number] Bacteriology Remark(s): NO GROWTH IN 5 DAYS =--=--=--=--=--=--=--=--=--=--=--=--=--= --=--=--=--=--=--=--=--=--=--=--=--=-- Performing Laboratory: Bacteriology Report Performed By: [facility] [CLIA# [id number]] [address] [place] [facility] [place] [place] [address]
--- OUTSIDE RECORDS SUMMARY | 2022-01-19 08:16 | XMS_ITS ---
[facility] Encounter Summary Created on:December 06, 2021 Patient:LUCAS MEEK Sex:Male :1950 Author Organization [facility] Address [address] [place] [id number] Support Name Relationship Address Phone SUSAN MEEK Unavailable [address] [place] [address] SUSAN MEEK Unavailable [address] [place] [address] CLAY MOSLEY Unavailable Unavailable SJ SANTACRUZ Unavailable [...] MEDICARE MEDICARE PART Jun 18, PART A [id number] DO KALYANI PATIENT (WNR) (M) A 2016 13A 1 UGLAS MEDICARE MEDICARE PART Jun 18, PART B [id number] DO KALYANI PATIENT (WNR) (M) B 2016 13A 1 LAS MEDICARE MEDICARE PART Jun 18, PART A [id number] DO KALYANI PATIENT (WNR) (M) A 2017 VH81 2 LAS MEDICARE MEDICARE PART Jun 18, PART B [id number] DO KALYANI PATIENT (WNR) (M) B 2017 VH81 2 UGLAS UNITED MEDICARE MCR(Jun 18 [id number] Luz MEEK PATIENT HEALTHCARE ADVANTAGE NR) 2021 37 0 LAS [facility] (WNR) Selected Encounter This section includes the information on record at [place] for the Encounter. Date/Time Encounter Type Encounter Description Reason Provider Source Dec 06, 2021 EGD DIAGNOSTIC HOSPITALIZATION ASHLY TODD 04:44 PM BRUSH WASH E IHE Encounter Template Text not used by [facility] Assessments - Encounter Diagnoses This section includes the primary and secondary diagnoses documented for the Encounter. 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 This section includes future appointments and [...] 2021 08:00 AM AMBULATORY - [place] [facility] Jan 06, 2022 02:00 PM [place] [facility] Jan 10, 2022 11:30 AM AMBULATORY - MEDICINE [facility] Jan 24, 2022 08:00 AM [place] [facility] Feb 21, 2022 10:00 AM [place] [facility] Mar 21, 2022 10:30 AM AMBULATORY - MEDICINE [facility] Active, Pending, and [...] the Encounter. The data comes from all [place] treatment facilities. Test Date/Time Test Type Test Details Facility Name October 31, 2021 07:37 AM Consult Order COMMUNITY CARE-EGD [facility] Cons [employer] Choice November 15, 2021 10:37 AM Consult Order [facility] CARE-PODIATRY Cons [employer] Choice Dec 06, 2021 12:52 PM Pharmacy - [place] Order [facility] Dec 06, 2021 03:24 PM Pharmacy - [place] [facility] Dec 06, 2021 03:40 PM Pharmacy - [place] [facility] Dec 15, 2021 08:41 AM Consult Order SPEECH PATHOLOGY [place] OUTPAT[place] Cons [facility] [employer] Choice Jan 15, 2022 10:08 PM Consult Order [facility] CARE-PALLIATIVE CARE Cons [employer] Surgical Procedures: All associated to the encounter This section includes all Surgical Procedures and Surgical Procedure Notes associated to the Encounter.Surgical Procedures This section includes all Surgical Procedures associated to the Encounter.Surgical Procedure Date/Time Procedure Procedure Type Procedure Provider Source Qualifiers Dec 14, 2021 EGD WITH BIOPSY EGD DIAGNOSTIC [place] C[place] 07:56 AM [place] [facility] Surgical Notes This section includes all S urgical Notes associated to the Procedure. Date/Time Surgical Procedure Note Provider Dec 14, 2021 07:56 AM NURSING OPERATIVE NOTE: ARELY GREGORY LOCAL TITLE: NURSE INTRAOPERATIVE REPOR T STANDARD TITLE: NURSING OPERATIVE NOTE DATE OF NOTE: DEC 14, 2021@07:56 ENTRY D ATE: DEC 14, 2021@08:40:51 AUTHOR: JOSE GREGORY EXP COSIGNER: URGENCY: STATUS: COMPLETED SUBJECT: Case #: [id number] NURSE INTRAOPERATIVE REPORT Has ADD ENDA Operating Room: OR 3 Surgical Priority: ELECTIVE Patient in Hold: NOT ENTERED Patient in OR: DEC 14, 2021 07:56 Operation Begin: DEC 14, 2021 08:15 Oper ation End: DEC 14, 2021 08:32 Patient Out OR: DEC 14, 2021 08:40 Major Operations Performed: Primary: EGD WITH BIOPSY Robotic Assistance (Y/N): NO Wound Classification: CLEAN Operation Disposition: SANCHEZ Discharged Via: LORRI Primary Surgeon: MICHELLE CALERO Assist: N/A Attending Surgeon: YAMEL HILL Ass ist: N/A Automatic Bandsaw Tender: BRITNEY FORBES Hot Mill Shearer Rupal st: N/A OR Support Personnel: Scrubbed Circulating ROSAURA PAYNE () JOSE GREGORY () Preop Mood: ANXIOUS Preop Consc: ALERT-O RIENTED Preop Skin Integ: WARM, DRY & INTACT Pre op [place]: N/A --- Time Out Checklist --- Confirm Correct Patient Identity: YES Confirm Procedure To Be Performed: YES Confirm Site of the Procedure, Including Laterality: YES Confirm Valid Consent: YES, i-MED Confirm Patient Position: YES Confirm Procedure Site has been Marked A ppropriately and that the Site of the Mo is Visible After Prep and Draping: NO Pertinent Medical Images Have Been Confi rmed: N/A Correct Medical Implant(s) is Available: NOT APPLICABLE Availability of Special Equipment: YES Appropriate Antibiotic Prophylaxis: NOT INDICATED Appropriate Deep Vein Thrombosis Prophyl axis: YES Blood Availability: NOT INDICATED Checklist Comment: PT DID NOT HAVE PINK BRACLET ON. SCOPE NUMBER [id number] DR. MICHELLE CALERO VERIFIED INSTRUMENT SWEEP, POST-PROCEDURE SCOPE CHECK BY HIM. Time-Out Document Completed By: Sherie GREGORY Time-Out Completed: DEC 14, 2021@08:05 Preop Surgical Site Hair Removal by: N/A Surgical Site Hair Removal Method: NO MILLS IR REMOVED Hair Removal Comments: NO COMMENTS ENTE RED Surgery Position(s): SUPINE Placed: N/A LATERAL DECUBITUS, LEFT DOWN Placed: N/ A Restraints and Position Aids: PILLOW BETWEEN LEGS Applied By: N/A CALF-LENGTH VENODYNE KIEL. Applied By: N /A WARM BLANKETS AT START Applied By: N/A WARM BLANKETS AT END Applied By: N/A Anesthesia Technique(s): GENERAL Tubes and Drains: N Possible Item Retention: YES Sponge Final Count Correct: NOT APPLICAB LE Sharps Final Count Correct: NOT APPLICAB LE Instrument Final Count Correct: NOT APPL ICABLE Wound Sweep: YES Wound Sweep Comment: NO COMMENTS ENTERED Intra-Operative X-Ray: NO Intra-Operative X-Ray Comment: NO COMMEN TS ENTERED Counter: JOSE GREGORY Counts Verified By: ROSAURA PAYNE Dressing: N Packing: NONE Blood Loss: 0 ml Urine Output: 0 ml Postoperative Mood: RELAXED Postoperative Consciousness: RESTING Postoperative Skin Integrity: WARM, DRY & INTACT Sequential Compression Device: YES Immediate Use Steam Sterilization Episod es: Contamination: 0 SPS Processing/OR Management Issues: 0 Emergency Case: 0 No Better Option: 0 Loaner or Short Notice Instrument: 0 Decontamination of Instruments Contamin ated During the Case: 0 Nursing Care Comments: NO COMMENTS ENTER ED /es/ JOSE GREGORY registered nurse Signed: 12/14/2021 08:47 12/15/2021 ADDENDUM STATUS: COMPLETED The Wound Classification field was smith ed from CLEAN to CLEAN/CONTAMINATED Addendum Comment: [facility] /es/ Rosaura VIERAN union representative Quality Nurse Signed: 12/15/2021 13:12 Lab Results: +/- 30 days of the [...] [facility] Comment: Tests performed on SquareHook (405) SN:[id number] Ordering Provid er: ASHLY TODD Report Released Date/Time: Dec 11, 2021 07:42 AM Reporting Lab: [place] [facility] [address] [facility] [address] Performing Lab: [place] [facility] [address] [facility] [address] UREA NITROGEN 9 7-25 SODIUM 137 135-145 POTASSIUM 3.8 3.5-5.0 CHLORIDE 105 100-110 CARBON DIOXIDE 26 20-30 ANION GAP 6 4-16 GLUCOSE 102 H 65-100 CREATININE 0.64 0.5-1.5 CALCIUM 8.1 L 8.5-10.5 eGFR(CKD-EPI 2020) >90.0 >60 Dec 15, 2021 06:43 AM [place] [facility] CBC PROFILE Sp ecimen Type: BLOOD No comment enter ed. Ordering Provid er: ASHLY TODD Report Released Date/Time: Dec 10, 2021 07:22 AM Reporting Lab: [place] [facility] [address] [facility] [address] Performing Lab: [place] [facility] [address] [facility] [address] WBC 5.7 4.5-11.0 RBC 4.22 L 4.23-5.66 [...] NRBC 0.00 0-0 Dec 14, 2021 [facility] CYTOGENETIC Specimen Type: ESOPHAGUS 02:59 PM [facility] FISH([facility]) Comment: ~For T est: CYTOGENETIC FISH([facility]) ~FISH HER 2 NUE, FFPE See full report in [employer] Image display viewer/tab#LAB-Reference Ordering Provid er: NIURKA MILLER Report Released Date/Time: Dec 21, 2021 12:11 PM Reporting Lab: [facility] [address] [facility] [facility] [address] Performing Lab: [facility] CYTOGENETIC FISH([facility]) comment Dec 14, 2021 [facility] P4 GLU,BUN,CREAT,LYTES,CA Speci men Type: PLASMA 06:27 AM [facility] Comment: Tests performed on SquareHook (405) SN:[id number] Ordering Provid er: ASHLY TODD Report Released Date/Time: Dec 11, 2021 07:42 AM Reporting Lab: [facility] [address] [facility] [address] Performing Lab: [facility] [address] [facility] [address] UREA NITROGEN 10 7-25 SODIUM 137 135-145 POTASSIUM 4.0 3.5-5.0 CHLORIDE 104 100-110 CARBON DIOXIDE 25 20-30 ANION GAP 8 4-16 GLUCOSE 99 65-100 CREATININE 0.67 0.5-1.5 CALCIUM 8.2 L 8.5-10.5 eGFR(CKD-EPI 2020) >90.0 >60 Dec 14, 2021 06:27 AM [facility] CBC PROFILE Sp ecimen Type: BLOOD No comment enter ed. Ordering Provid er: ASHLY TODD Report Released Date/Time: Dec 10, 2021 07:22 AM Reporting Lab: [facility] [address] [facility] [address] Performing Lab: [facility] [address] [facility] [address] WBC 6.0 4.5-11.0 RBC 4.29 4.23-5.66 HGB [...] NRBC 0.00 0-0 Dec 13, 2021 [facility] P4 GLU,BUN,CREAT,LYTES,CA Speci men Type: PLASMA 06:34 AM [facility] Comment: Tests performed on SquareHook (405) SN:[id number] Ordering Provid er: ASHLY TODD Report Released Date/Time: Dec 11, 2021 07:42 AM Reporting Lab: [facility] [address] [facility] [facility] [address] Performing Lab: [facility] [address] [facility] [facility] [address] UREA NITROGEN 12 7-25 SODIUM 136 135-145 POTASSIUM 3.9 3.5-5.0 CHLORIDE 105 100-110 CARBON DIOXIDE 24 20-30 ANION GAP 7 4-16 GLUCOSE 102 H 65-100 CREATININE 0.66 0.5-1.5 CALCIUM 8.3 L 8.5-10.5 eGFR(CKD-EPI 2020) >90.0 >60 Dec 13, 2021 06:34 AM [facility] CBC PROFILE Sp ecimen Type: BLOOD No comment enter ed. Ordering Provid er: ASHLY TODD Report Released Date/Time: Dec 10, 2021 07:22 AM Reporting Lab: [facility] [address] [facility] [address] Performing Lab: [facility] [address] [facility] [address] WBC 5.6 4.5-11.0 RBC 4.28 4.23-5.66 HGB [...] NRBC 0.00 0-0 Dec 12, 2021 [facility] P4 GLU,BUN,CREAT,LYTES,CA Speci men Type: PLASMA 06:21 AM [facility] Comment: Tests performed on SquareHook (405) SN:[id number] Ordering Provid er: ASHLY TODD Report Released Date/Time: Dec 11, 2021 07:42 AM Reporting Lab: [facility] [address] [facility] [address] Performing Lab: [facility] [address] [facility] [address] UREA NITROGEN 11 7-25 SODIUM 139 135-145 POTASSIUM 4.1 3.5-5.0 CHLORIDE 107 100-110 CARBON DIOXIDE 24 20-30 ANION GAP 8 4-16 GLUCOSE 110 H 65-100 CREATININE 0.70 0.5-1.5 CALCIUM 8.3 L 8.5-10.5 eGFR(CKD-EPI 2020) >90.0 >60 Dec 12, 2021 06:21 AM [facility] CBC PROFILE Sp ecimen Type: BLOOD No comment enter ed. Ordering Provid er: ASHLY TODD Report Released Date/Time: Dec 10, 2021 07:22 AM Reporting Lab: [facility] [address] [facility] [address] Performing Lab: [facility] [address] [facility] [facility] [address] WBC 5.5 4.5-11.0 RBC 4.37 4.23-5.66 HGB [...] Type: PLASMA Comment: Testin g Performed on SquareHook (405) SN:[id number] Ordering Provid er: ASHLY TODD Report Released Date/Time: Dec 12, 2021 08:24 AM Reporting Lab: [facility] [address] [facility] [address] Performing Lab: [facility] [address] [facility] [address] MAGNESIUM 1.8 1.6-2.6 Dec 12, 2021 06:00 AM [facility] PHOSPHORUS Sp ecimen Type: PLASMA Comment: Testin g Performed on SquareHook (405) SN:[id number] Ordering Provid er: ASHLY TODD Report Released Date/Time: Dec 12, 2021 08:24 AM Reporting Lab: [place] [facility] [address] [facility] [address] Performing Lab: [facility] [address] [facility] [address] PHOSPHORUS 3.1 2.5-5.0 Dec 11, 2021 06:15 AM [facility] ELECTROLYTES Sp ecimen Type: PLASMA Comment: Tests performed on SquareHook (405) SN:[id number] Ordering Provid er: ASHLY TODD Report Released Date/Time: Dec 10, 2021 07:22 AM Reporting Lab: [facility] [address] [facility] [address] Performing Lab: [facility] [address] [facility] [address] SODIUM 137 135-145 POTASSIUM 4.3 3.5-5.0 CHLORIDE 108 100-110 CARBON DIOXIDE 20 20-30 ANION GAP 9 4-16 Dec 11, 2021 06:15 AM [facility] CBC PROFILE Sp ecimen Type: BLOOD Comment: Result s checked Ordering Provid er: ASHLY TODD Report Released Date/Time: Dec 10, 2021 07:22 AM Reporting Lab: [facility] [address] [facility] [address] Performing Lab: [facility] [address] [facility] [address] WBC 5.8 4.5-11.0 RBC 4.37 4.23-5.66 HGB [...] 0.00 0-0 Dec 11, 2021 06:00 AM [facility] PHOSPHORUS Sp ecimen Type: PLASMA Comment: Tests performed on SquareHook (405) SN:[id number] Results checked Ordering Provid er: ASHLY TODD Report Released Date/Time: Dec 11, 2021 07:44 AM Reporting Lab: [facility] [address] [facility] [facility] [address] Performing Lab: [place] [facility] [address] [place] [facility] [place] [address] PHOSPHORUS 3.0 2.5-5.0 Dec 10, 2021 08:05 AM [place] [facility] MAGNESIUM Sp ecimen Type: PLASMA Comment: [place] [id number] on Dec 10, 2021@08:31 Tests performed on SquareHook (405) SN:[id number] Ordering Provid er: ASHLY TODD Report Released Date/Time: Dec 10, 2021 07:22 AM Reporting Lab: [place] [facility] [address] [place] [facility] [place] [address] Performing Lab: [place] [facility] [address] [facility] [address] MAGNESIUM 1.7 1.6-2.6 Dec 10, 2021 08:05 AM [place] UREA NITROGEN Specimen Type: PLASMA [facility] Comment: [place] [id number] on Dec 10, 2021@08:31 Tests performed on SquareHook (405) SN:[id number] Ordering Provid er: ASHLY TODD Report Released Date/Time: Dec 10, 2021 07:22 AM Reporting Lab: [place] [facility] [address] [place] [facility] [place] [address] Performing Lab: [place] [facility] [address] [place] [facility] [place] [address] UREA NITROGEN 8 7-25 Dec 10, 2021 08:05 AM [place] [facility] PHOSPHORUS Sp ecimen Type: PLASMA Comment: [place] [id number] on Dec 10, 2021@08:31 Tests performed on SquareHook (405) SN:[id number] Ordering Provid er: ASHLY TODD Report Released Date/Time: Dec 10, 2021 07:22 AM Reporting Lab: [place] [facility] [address] [place] [facility] [place] [address] Performing Lab: [place] [facility] [address] [place] [facility] [place] [address] PHOSPHORUS 1.8 L 2.5-5.0 Dec 10, 2021 08:05 AM [place] [facility] GLUCOSE Sp ecimen Type: PLASMA Comment: [place] [id number] on Dec 10, 2021@08:31 Tests performed on SquareHook (405) SN:[id number] Ordering Provid er: ASHLY TODD Report Released Date/Time: Dec 10, 2021 07:22 AM Reporting Lab: [place] [facility] [address] [facility] [address] Performing Lab: [place] [facility] [address] [facility] [address] GLUCOSE 144 H 65-100 Dec 10, 2021 08:05 AM [place] [facility] CALCIUM Sp ecimen Type: PLASMA Comment: [place] [id number] on Dec 10, 2021@08:31 Tests performed on [employer] (405) SN:[id number] Ordering Provid er: ASHLY TODD Report Released Date/Time: Dec 10, 2021 07:22 AM Reporting Lab: [place] [facility] [address] [facility] [address] Performing Lab: [place] [facility] [address] [facility] [address] CALCIUM 8.3 L 8.5-10.5 Dec 10, 2021 08:05 AM [place] [facility] ELECTROLYTES Sp ecimen Type: PLASMA Comment: [place] [id number] on Dec 10, 2021@08:31 Tests performed on [employer] (405) SN:[id number] Ordering Provid er: ASHLY TODD Report Released Date/Time: Dec 10, 2021 07:22 AM Reporting Lab: [place] [facility] [address] [place] [facility] [place] [address] Performing Lab: [place] [facility] [address] [facility] [address] SODIUM 139 135-145 POTASSIUM 3.7 3.5-5.0 CHLORIDE 107 100-110 CARBON DIOXIDE 24 20-30 ANION GAP 8 4-16 Dec 10, 2021 08:05 [place] CREATININE WITH eGFR Specime n Type: PLASMA AM [facility] PANEL Comment: [place] [id number] on Dec 10, 2021@08:31 Tests performed on [employer] (405) SN:[id number] Ordering Provid er: ASHLY TODD Report Released Date/Time: Dec 10, 2021 07:22 AM Reporting Lab: [place] [facility] [address] [facility] [address] Performing Lab: [place] [facility] [address] [facility] [address] CREATININE 0.78 0.5-1.5 eGFR(CKD-EPI 2020) >90.0 >60 Dec 10, 2021 08:05 AM [facility] CBC PROFILE Sp ecimen Type: BLOOD No comment enter ed. Ordering Provid er: ASHLY TODD Report Released Date/Time: Dec 10, 2021 07:22 AM Reporting Lab: [facility] [address] [facility] [address] Performing Lab: [facility] [address] [facility] [address] WBC 7.0 4.5-11.0 RBC 4.54 4.23-5.66 HGB [...] 0.00 0-0 Dec 09, 2021 06:46 AM [place] MAGNESIUM Sp ecimen Type: PLASMA Comment: Tests performed on SquareHook (405 SN:[id number] Ordering Provid er: ASHLY TODD Report Released Date/Time: Dec 08, 2021 10:23 AM Reporting Lab: [facility] [address] [facility] Performing Lab: [place] [facility] [address] [facility] MAGNESIUM 1.6 1.6-2.6 Dec 09, 2021 [place] P4 GLU,BUN,CREAT,LYTES,CA Speci men Type: PLASMA 06:46 AM [facility] Comment: Tests performed on [employer]Hook (405) SN:[id number] Ordering Provid er: ASHLY TODD Report Released Date/Time: Dec 08, 2021 05:00 PM Reporting Lab: [place] [facility] [address] [facility] Performing Lab: [place] [facility] [address] [facility] UREA NITROGEN 6 L 7-25 SODIUM 134 L 135-145 POTASSIUM 3.7 3.5-5.0 CHLORIDE 103 100-110 CARBON DIOXIDE 23 20-30 ANION GAP 8 4-16 GLUCOSE 112 H 65-100 CREATININE 0.70 0.5-1.5 CALCIUM 8.1 L 8.5-10.5 eGFR(CKD-EPI 2020) >90.0 >60 Dec 09, 2021 06:46 AM [facility] CBC PROFILE Sp ecimen Type: BLOOD No comment enter ed. Ordering Provid er: ASHLY TODD Report Released Date/Time: Dec 08, 2021 05:00 PM Reporting Lab: [place] [facility] [address] [facility] Performing Lab: [place] [facility] [address] [facility] WBC 7.1 4.5-11.0 RBC 4.40 4.23-5.66 [...] 0.00 0-0 Dec 08, 2021 06:39 AM [facility] MAGNESIUM Sp ecimen Type: PLASMA Comment: Testin g Performed on [employer] (405) SN:[id number] Ordering Provid er: ASHLY TODD Report Released Date/Time: Dec 07, 2021 10:32 AM Reporting Lab: [facility] [address] [facility] [address] Performing Lab: [facility] [address] [facility] [address] MAGNESIUM 1.5 L 1.6-2.6 Dec 08, 2021 [place] P4 GLU,BUN,CREAT,LYTES,CA Speci men Type: PLASMA 06:39 AM [facility] Comment: Testin g Performed on SquareHook (405) SN:[id number] Ordering Provid er: ASHLY TODD Report Released Date/Time: Dec 07, 2021 10:32 AM Reporting Lab: [facility] [address] [facility] [address] Performing Lab: [place] [facility] [address] [facility] [address] UREA NITROGEN 6 L 7-25 SODIUM 136 135-145 POTASSIUM 3.3 L 3.5-5.0 CHLORIDE 104 100-110 CARBON DIOXIDE 22 20-30 ANION GAP 10 4-16 GLUCOSE 133 H 65-100 CREATININE 0.76 0.5-1.5 CALCIUM 8.4 L 8.5-10.5 eGFR(CKD-EPI 2020) >90.0 >60 Dec 08, 2021 06:39 AM [place] [facility] CBC PROFILE Sp ecimen Type: BLOOD No comment enter ed. Ordering Provid er: ASHLY TDOD Report Released Date/Time: Dec 07, 2021 10:32 AM Reporting Lab: [facility] [address] [facility] [address] Performing Lab: [facility] [address] [facility] [address] WBC 8.4 4.5-11.0 RBC 4.75 4.23-5.66 HGB [...] NRBC 0.00 0-0 Dec 07, 2021 06:42 [facility] LIVER PROFILE Specimen Typ e: PLASMA AM [facility] Comment: Tests performed on SquareHook (062) SN:[id number] Ordering Provid er: ANTONY MCKEON Report Released Date/Time: Dec 06, 2021 06:57 PM Reporting Lab: [facility] [address] [facility] [address] Per[facility] Lab: [facility] [address] [facility] [address] PROTEIN, TOTAL 5.7 L 6.0-8.5 ALBUMIN 2.4 L 3.2-5.0 BILIRUBIN, TOTAL 0.4 0.2-1.2 ALKALINE PHOSPHATASE 109 40-150 ALT(SGPT) 10 7-52 AST(SGOT) 15 5-34 FIB-4 SCORE 1.92 <2.67 Dec 07, 2021 [place] P4 GLU,BUN,CREAT,LYTES,CA Speci men Type: PLASMA 06:42 AM [facility] Comment: Tests performed on [employer] (405) SN:[id number] Ordering Provid er: ANTONY MCKEON Report Released Date/Time: Dec 06, 2021 06:57 PM Reporting Lab: [place] [facility] [address] [facility] [address] Performing Lab: [place] [facility] [address] [facility] [address] UREA NITROGEN 9 7-25 SODIUM 135 135-145 POTASSIUM 3.5 3.5-5.0 CHLORIDE 103 100-110 CARBON DIOXIDE 22 20-30 ANION GAP 10 4-16 GLUCOSE 92 65-100 CREATININE 0.73 0.5-1.5 CALCIUM 8.0 L 8.5-10.5 eGFR(CKD-EPI 2020) >90.0 >60 Dec 07, 2021 06:42 AM [place] CBC PROFILE Specimen Type: BLOOD [facility] No comment enter ed. Ordering Provid er: ANTONY MCKEON Report Released Date/Time: Dec 06, 2021 06:57 PM Reporting Lab: [place] [facility] [address] [facility] [address] Performing Lab: [facility] [place] [facility] [address] [facility] [address] WBC 5.7 4.5-11.0 RBC 4.15 L 4.23-5.66 [...] VAMROC %) AUTOMATED Comment: Tests performed on [employer] (405) [id number] Ordering Provid er: ASHLY TODD Report Released Date/Time: Dec 07, 2021 10:28 AM Reporting Lab: [place] [facility] [address] [facility] [address] Performing Lab: [place] [facility] [address] [place] [facility] [place] [address] RETICULOCYTES (%) AUTOMATED 1.23 0. 6-2.0 RETICULOCYTES (ABS) AUTOMATED 0.052 0.030-0.090 Dec 06, 2021 09:45 [place] MRSA SURVL NARES Specimen Ty pe: NARES PM [facility] DNA No comment enter ed. Ordering Provid er: ALVARO VARGHESE Report Released Date/Time: Dec 07, 2021 02:20 AM Reporting Lab: [place] [facility] [address] [place] [facility] [place] [address] Performing Lab: [place] [facility] [address] [place] [facility] [place] [address] MRSA SURVL NARES DNA NEGATIVE NEGATIVE Dec 06, 2021 06:00 [place] URINALYSIS W/REFLEX TO Speci men Type: URINE PM [facility] CULTURE No comment enter ed. Ordering Provid er: JELANI SÁNCHEZ Report Released Date/Time: Dec 06, 2021 11:57 AM Reporting Lab: [place] [facility] [address] [place] [facility] [place] [address] Performing Lab: [place] [facility] [address] [facility] [address] URINE COLOR Arlin YELLOW SPECIFIC GRAVITY 1.029 [...] 21, RIVER [employer]IANT Comment: https://www.cdc.gov/coronavirus/2019-ncov/cases-updates/variant- surveillance/variant-info.html The [employer] SARS CoV 2 [employer] Assay-GX is a next-generation sequencing (NGS) assa 2021 [facility] SEQUENCING y that determine s the complete genome sequence of the SARS-CoV-2 virus. The assay contains variant-tolerant primers to broaden and improve the coverage for variant detection and increase the sensitivity 12:00 [facility] PNL() of the panel to enable detection from lower viral titer samples. The assay is run on the Cardia Sequencer, which performs automated library preparation, sequencing, analysis, and reporting. PM The sequence an alysis includes determination of viral phylogenetic lineage by comparison to the reference strain Wuhan-Hu-1, GenBank: [id number]. Sequence determination may not be possible owing [...] and its performance characteristics determined by the [facility] Molecular Diagnostics Laboratory, which is certified under the Clinical Laboratory Improveme nt Amendments (C MARCO) as qualified to perform high complexity clinical laboratory testing. This test is validated for clinical use at [facility] and should not be regarded [...] Lab: [place] [facility] [address] [place] [place] [address] Performing Lab: [place] [facility] [address] [facility] [address] SARS-CoV-2 CLADE() 22C (OMICRON) SARS-CoV-2 LINEAGE() BA.2.12.1 Dec 06, 2021 12:00 [place] COVID-19 AG SCREEN Specimen Type: NASAL CAVITY PM [facility] PANEL BINAX(405) Comment: Testi ng Performed By: Mike Briscoe Ordering Provid er: JELANI SÁNCHEZ Report Released Date/Time: Dec 08, 2021 08:23 AM Reporting Lab: [facility] [facility] [address] [place] [facility] [place] [address] Performing Lab: [place] [facility] [address] [place] [facility] [place] [address] COVID-19 AG SCRN(wrj BINAX) POSITIVE HH NE G Dec 06, 2021 12:00 PM [place] [facility] TROPONIN II Sp ecimen Type: PLASMA Comment: Tests performed on Pham Degreasing Solution Reclaimer (405) SN:[id number] Ordering Provid er: JELANI SÁNCHEZ Report Released Date/Time: Dec 06, 2021 11:57 AM Reporting Lab: [place] [facility] [address] [place] [facility] [place] [address] Performing Lab: [place] [facility] [address] [place] [place] [address] TROPONIN II 0.03 0.00-0.29 Dec 06, 2021 12:00 PM [place] [facility] LIVER PROFILE Sp ecimen Type: PLASMA Comment: Testin g Performed on Pham Degreasing Solution Reclaimer (405) SN:[id number] Ordering Provid er: JELANI SÁNCHEZ Report Released Date/Time: Dec 06, 2021 11:57 AM Reporting Lab: [place] [facility] [address] [place] [place] [address] Performing Lab: [place] [facility] [address] [facility] [address] PROTEIN, TOTAL 6.6 6.0-8.5 ALBUMIN 2.8 L 3.2-5.0 BILIRUBIN, TOTAL 0.6 0.2-1.2 ALKALINE PHOSPHATASE 134 40-150 ALT(SGPT) 13 7-52 AST(SGOT) 18 5-34 FIB-4 SCORE 1.94 <2.67 Dec 06, 2021 [place] P4 GLU,BUN,CREAT,LYTES,CA Speci men Type: PLASMA 12:00 PM [facility] Comment: Testin g Performed on Pham Degreasing Solution Reclaimer (405) SN:[id number] Ordering Provid er: JELANI SÁNCHEZ Report Released Date/Time: Dec 06, 2021 11:57 AM Reporting Lab: [facility] [address] [facility] [address] Performing Lab: [facility] [address] [facility] [address] UREA NITROGEN 13 7-25 SODIUM 138 135-145 POTASSIUM 3.8 3.5-5.0 CHLORIDE 103 100-110 CARBON DIOXIDE 23 20-30 ANION GAP 12 4-16 GLUCOSE 105 H 65-100 CREATININE 0.90 0.5-1.5 CALCIUM 8.7 8.5-10.5 eGFR(CKD-EPI 2020) >90.0 >60 Dec 06, 2021 12:00 PM [facility] BNP(P) Sp ecimen Type: PLASMA Comment: Tests performed on Pham Degreasing Solution Reclaimer (405) SN:[id number] Ordering Provid er: JELANI SÁNCHEZ Report Released Date/Time: Dec 06, 2021 11:57 AM Reporting Lab: [place] [facility] [address] [facility] [address] Performing Lab: [facility] [address] [facility] [address] BNP(P) 224.8 H 10-100 Dec 06, 2021 [facility] COVID-19+FLU/RSV DIAGNOSTIC Spe cimen Type: NASOPHARYNX 12:00 PM [facility] PANEL(405) Comment: Tests performed on BuzzSumoxpert (405) Critical results called to and read back by: ALESHIA WILKINSON RN 12/06/21 @ 1312 Ordering Provid er: JELANI SÁNCHEZ Report Released Date/Time: Dec 06, 2021 11:57 AM Reporting Lab: [facility] [address] [facility] [address] Performing Lab: [facility] [address] [facility] [address] FLU A(PCR) NEGATIVE NEGATIVE FLU B(PCR) NEGATIVE NEGATIVE RSV(PCR) NEGATIVE NEGATIVE COVID-19([id number]) DETECTED HH NO T DETECTED Dec 06, 2021 12:00 PM [facility] CBC PROFILE Sp ecimen Type: BLOOD No comment enter ed. Ordering Provid er: JELANI SÁNCHEZ Report Released Date/Time: Dec 06, 2021 11:57 AM Reporting Lab: [facility] [address] [facility] [address] Performing Lab: [facility] [address] [facility] [address] WBC 7.2 4.5-11.0 RBC 4.86 4.23-5.66 HGB [...] 233.7 32 [place] 2021 09:43 lb [facility] Dec 06, 98.2 F 91 134/59 16 /min 98 % 0 [place] 2021 09:37 /min mm[Hg] [facility] Dec 06, 114 129/69 21 /min 97 % [place] 2021 06:00 /min mm[Hg] [facility] Dec 06, 99 139/68 24 /min 96 % [place] 2021 05:30 /min mm[Hg] [facility] Dec 06, 98.8 F 110 120/68 23 /min 94 % 0 [place] 2021 04:16 /min mm[Hg] [facility] Social History: Smoking Status (Most current) [...] USE > 7 YEARS AGO [facility] Tobacco Use History This section includes a history of the smoking, or tobacco- related health factors, that were collected on or before the date of the Encounter. The data comes from the [place] facility where the Encounter took place. Date/Time Smoking Status/Tobacco Use Comment [facility] Apr 01, 2020 01:16 PM QUIT TOBACCO USE 1-7 YEARS AGO [facility] Mar 24, 2020 03:00 PM QUIT [...] USE IN PAST YEAR [facility] May 23, 2016 06:57 PM QUIT TOBACCO USE > 7 YEARS AGO [facility] May 19, 2016 03:55 PM QUIT TOBACCO USE IN PAST YEAR CAREY DOYLE [facility] May 19, 2016 10:29 AM QUIT TOBACCO USE 1-7 YEARS AGO CAREY DOYLE [facility] May 01, 2016 07:26 PM QUIT TOBACCO USE IN PAST YEAR CAREY DOYLE [facility] May 01, 2016 03:11 PM QUIT TOBACCO USE IN PAST YEAR CAREY DOYLE [facility] May 01, 2016 11:19 AM QUIT TOBACCO USE IN PAST YEAR CAREY DOYLE [facility] Mar 16, 2016 12:50 PM V1-PT DECLINES REF TO TOBACCO CAREY DOYLE [facility] CESS PRGM Mar 16, 2016 12:50 PM V1-PT THINKING ABOUT QUIT CAREY DOYLE [facility] TOBACCO USE Aug 12, 2015 08:48 AM CURRENT SMOKER CAREY Yates [facility] Radiology Reports: +/- 30 [...] the Encounter. The data comes from all [place] treatment facilities. Date/Time Radiology Report Provider Source Dec 13, 2021 12:57 PM MRI ABDOMEN W/WO CONTRAST: MARYELLEN LONG LUCAS LARES N [id number] -1950 [facility] Exm Date: DEC 13, 2021@12:57 Req Phys: ASHLY TODD Loc: OP Unknown/0 12-15-2021@13:20 Img Loc: MRI IMAGING (OOS) Service[facility] (Case [id number] COMPLETE) MRI ABDOMEN W/WO CONTRAST (M NE Detailed) CPT:97496 Reason for Study: further characterization of a [...] new lyphadenopathy REQUESTING MD: Ashly Todd PAGER: [phone] PHONE: [phone] Weight: 232.2 lb [105.32 kg] (12/12/2021 05:00) [...] will need to arrange for a driver education instructor to take him/her home after the MRI [...] 15, 2021 Date Verified: DEC 15, 2021 Rail Crew Member E-Sig:/ES/MARYELLEN LONG Report: MRI ABDOMEN W/WO CONTRAST [...] concerning for metastases. Please see the saved Benito Image(s) at the end of this study for pertinent findings. Findings reviewed with the medicine team on 11/17. Primary Diagnostic Code: SIGNIFICANT ABNORMALIT Y ATTENTION NEEDED Secondary Diagnostic Codes: POSSIBLE MALIGNANCY Primary Interpreting Staff: Staff AMELIA THOMAS (Rail Crew Member) / Dec 10, 2021 09:[address] ABDOMEN & PELVIS: RADIOLOGY,OUTSIDE [facility] LINDSAY MEEKLUCAS N [id number] -1950 M SERVICE [facility] Exm Date: DEC 10, 2021@09:30 Req Phys: ASHLY TODD Loc: [facility]/12-10@10:57 Img Loc: CT SCAN (OOS) Service: [facility] (Case [id number] COMPLETE) CT ABD & PELVIS WITHOUT CONT RAST (CT Detailed) CPT:00642 Reason for Study: 71 yo male with [...] RADIOLOGY x5460 to speak to the appropriate septic tank service technician. Report Status: Verified Date Reported: DEC 10, 2021 Date Verified: DEC 10, 2021 Rail Crew Member E-Sig: Report: EXAM: CT abdomen and pelvis without contrast COMPARISON: CT abdomen and pelvis dated 05/01/2016. HISTORY: dysphagia ?esophageal anatomy TECHNIQUE: Contiguous axial images of the abdomen and pelv is were obtained without intravenous contrast. Coronal and sagit emily reformatted images were also obtained. Total number [...] ph nodes. READING PHYSICIAN: Ramone Munoz D.O. [phone] 12/10/2021 10:55 EDT [facility] [employer] Program [phone] (For Medical Practitioner Use Only ) [address] [facility], [facility] [address] [place] [address] Attention Patients / Veterans: If you have ques tions or concerns about these test results, please contact your o rdering provider or primary care team. Primary Diagnostic Code: SIGNIFICANT ABNORMALIT Y, ATTN NEEDED Primary Interpreting Staff: RADIOLOGY,OUTSIDE SERVICE, Staff Physician / Dec 09, 2021 07:34 AM BASPrincess (MODIFIED): JESSIE CHENEY [facility] LUCAS MEEK N [id number] -1950 M [facility] Exm Date: DEC 09, 2021@07:34 Req Phys: ASHLY TODD E Pat Loc: 1S MED/12-09@11:26 Img Loc: XRAY (OOS) Service: [facility] MEDICINE (Case [id number] COMPLETE) DELISA (MODIFIED) (EUNICE stephenson) CPT:82357 Contrast Media : Barium Reason for Study: dysphagia ?esophageal spasm Clinical History: Report Status: Verified Date Reported: DEC 09, 2021 Date Verified: DEC 09, 2021 Rail Crew Member E-Sig:/ES/JESSIE CHENEY Report: DELISA (MODIFIED) , 12/09/2021 [...] REQUIRED Primary Interpreting Staff: JESSIE CHENEY, RADIOLOGIST (Rail Crew Member) /TLC Dec 06, 2021 12:[address] CHEST (INCLUDES ADRENALS): JESSIE CHENEY [facility] LUCAS MEEK N [id number] -1950 M [facility] Exm Date: DEC 06, 2021@12:59 Req Phys: JELANI SÁNCHEZ Loc: [facility] ED DAYS M 1RD (Req'g Loc) Img Loc: CT SCAN (OOS) Service: Unknown (Case [id number] COMPLETE) CT THORAX W/O CONT (CT Detai led) CPT:21584 Reason for Study: Opacification right chest Clinical History: No contrast allergy BUN: 13 (12/06/21 12:00) CREATI: 0.90 (12/06/21 12:00) eGFR 05/16/21 09:43 52 L Weight: 232.6 lb [105.51 kg] (12/06/2021 11:40) BODY MASS INDEX - NO HEIGHTS FOUND Pager number: [phone] STAT orders MUST be called t o RADIOLOGY x5460 to speak to the appropriate septic tank service technician. Indications - Other: Opacification right chest, covid positive, lung cancer histo Report Status: Verified Date Reported: DEC 06, 2021 Date Verified: DEC 06, 2021 Rail Crew Member E-Sig:/ES/JESSIE CHENEY Report: CT THORAX W/O CONT [...] REQUIRED Primary Interpreting Staff: JESSIE CHENEY, RADIOLOGIST (Rail Crew Member) Primary Interpreting Resident: PRINCE CHAMPION, Resident /BR Dec 06, 2021 11:58 AM CHEST SINGLE VIEW: JESSIE CHENEY DOUGLAS N [id number] -1950 M [facility] Exm Date: DEC 06, 2021@11:58 Req Phys: JELANI SÁNCHEZ Pat Loc: [facility] ED DAYS M 1RD (Req'g Loc) Img Loc: XRAY (OOS) Service: Unknown (Case [id number] COMPLETE) CHEST SINGLE VIEW (RAD Detai led) CPT:49271 Proc Modifiers : PORTABLE EXAM Reason for Study: SOB, home covid test positive Clinical History: Report Status: Verified Date Reported: DEC 06, 2021 Date Verified: DEC 06, 2021 Rail Crew Member E-Sig:/ES/JESSIE CHENEY Report: Exam type: Chest x-ray [...] REQUIRED Primary Interpreting Staff: JESSIE CHENEY, RADIOLOGIST (Rail Crew Member) /TLC Pathology Reports: +/- 30 days of [...] the Encounter. The data comes from all [place] treatment facilities. Date/Time Pathology Report Provider Source Jan 03, 2022 10:28 AM LR SURGICAL PATHOLOGY REPORT: STEFANY MILLER LOCAL TITLE: LR SURGICAL PATHOLOGY REPORT [facility] STANDARD TITLE: PATHOLOGY REPORT DATE OF NOTE: JAN 03, 2022@10:28:01 ENTRY DATE: JAN 03, 2022@10:28:01 AUTHOR: NIURKA MILLER EXP COSIGNER: URGENCY: STATUS: COMPLETED $APHDR Reporting Lab: [facility]Y MONTOYA [facility] [CLIA# [id number]] [address] [place] [address] - - - - - - [...] automatically d ocumented from SURGERY package case #[id number] Field (#32) PRINCIPAL PRE-OP DIAGNOSIS, (#.72) OTHER [...] automatically d ocumented from SURGERY package case #[id number] Field (#34) PRINCIPAL POST-OP DIAG, (#.74) OTHER [...] Label: Lucas Meek Paperwork: Lucas Meek Cassette: [id number];..;KALYANI;.;640;[phone] Specimen is labeled: ES bx Received in formalin are several pieces of pale boyd and brown tissue, 1.2 x 0.7 cm in aggregate. Submitted entirely in 1 cassette [id number];..;KALYANI;.;405;[phone] SAW 12/15/2021 Microscopic exam: *+* MODIFIED REPORT *+* (Last modified: JAN 03, 2022@09:30:20 typed by NIURKA WADDELL) DIAGNOSIS: A. 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 Kendell long. TIARA Coombs was notified on 12/21/21. Modified on 01/03/22 to include report from [facility] stating that tumor is NEGATIVE for her2/ matheus amplification. The attending pathologist who signature poonam ears on this report has reviewed all diagnostic slides and has edited t he gross and/or microscopic portion of this report in rendering the final pathologic diagnosis. [facility] [address] [facility] [place] [facility] [place] [address] CPT: 37025 /emely/ NIURKA Yeung MD Signed Jan 03, 2022@10:28 Performing Laboratory: Surgical Pathology Report Performed By: [facility] [CLIA# [id number]] [address] [place] [facility] [place] [address] $FTR - - - - - [...] - - LUCAS MEEK STANDARD FORM 515 ID:[id number] SEX:M :1950 AGE: 71 LOC: [facility] END PCP: Ashly Todd /emely/ NIURKA Yeung MD Signed: 01/03/2022 10:28 Dec 21, 2021 11:46 AM LR SURGICAL PATHOLOGY RE[facility] LOC[facility] TITLE: LR SURGICAL PATHOLOGY REPORT [facility] STANDARD TITLE: PATHOLOGY REPORT DATE OF NOTE: DEC 21, 2021@11:46:59 ENTRY DATE: DEC 21, 2021@11:46:59 AUTHOR: NIURKA MILLER EXP COSIGNER: URGENCY: STATUS: COMPLETED $APHDR Reporting Lab: CAREY VIVEK [facility] [IA# [id number]] [address] [place] [facility] [place] [address] - - - - - - [...] automatically d ocumented from SURGERY package case #[id number] Field (#32) PRINCIPAL PRE-OP DIAGNOSIS, (#.72) OTHER [...] automatically d ocumented from SURGERY package case #[id number] Field (#34) PRINCIPAL POST-OP DIAG, (#.74) OTHER [...] Label: Lucas Meek Paperwork: Lucas Meek Cassette: [id number];..;KALYANI;.;405;[phone] Specimen is labeled: ES bx Received in formalin are several pieces of pale boyd and brown tissue, 1.2 x 0.7 cm in aggregate. Submitted entirely in 1 cassette [id number];..;KALYANI;.;405;[phone] SAW 12/15/2021 Microscopic exam: DIAGNOSIS: A. 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 Kendell long. TIARA Coombs was notified on 12/21/21. The attending pathologist who signature poonam ears on this report has reviewed all diagnostic slides and has edited t he gross and/or microscopic portion of this report in [place] the [place] [address] CPT: 68978 /emely/ NIURKA Yeung MD Signed Dec 21, 2021@11:46 Performing Laboratory: Surgical Pathology Report Performed By: C[facility]Y MONTO[facility] [CLIA# [id number]] [address] [place] [address] $FTR - - - - - [...] - - LUCAS MEEK STANDARD FORM 515 ID:[id number] SEX:M :1950 AGE: 71 LOC: [facility] END PCP: Ashly Todd /charmaine Yeung MD Signed: 12/21/2021 11:46 Dec 06, 2021 03:30 PM LR MICROBIOLOGY REPORT: LILLY JOHNSONYao VIVEK MONTOYA [facility] Reporting Lab: C[facility]Y DOYLE [facility] [CLIA# [id number]] [address] [place] [address] Accession [UID]: [id number] [[id number]] Receiv ed: Dec 06, 2021@16:14 Collection sample: BLOOD CUL T BOTTLE(NIRMAL/AERO)Collection date: Dec 06, 2021 15:30 Site/Specimen: BLOOD Provider: JELANI SÁNCHEZ Comment on specimen: LAC Test(s) ordered: BLOOD CULTURE ANAEROBI C....... completed: Dec 12, 2021 06:18 * BACTERIOLOGY FINAL REPORT => Dec 12, 2021 06:1 8 TECH CODE: 19852 Bacteriology Remark(s): NO GROWTH IN 5 DAYS =--=--=--=--=--=--=--=--=--=--=--=--=--= --=--=--=--=--=--=--=--=--=--=--=--=-- Performing Laboratory: Bacteriology Report Performed By: [facility] [CLIA# [id number]] [address] [place] [address] Dec 06, 2021 03:30 PM LR MICROBIOLOGY REPORT: [facility] Reporting Lab: [facility] [CLIA# [id number]] [address] [place] [address] Accession [UID]: [id number] [[id number]] Receiv ed: Dec 06, 2021@16:14 Collection sample: BLOOD CUL T BOTTLE(NIRMAL/AERO)Collection date: Dec 06, 2021 15:30 Site/Specimen: BLOOD Provider: JELANI SÁNCHEZ Comment on specimen: LAC Test(s) ordered: BLOOD CULTURE AEROBIC. ........ completed: Dec 12, 2021 06:17 * BACTERIOLOGY FINAL REPORT => Dec 12, 2021 06:1 7 TECH CODE: [id number] Bacteriology Remark(s): NO GROWTH IN 5 DAYS =--=--=--=--=--=--=--=--=--=--=--=--=--= --=--=--=--=--=--=--=--=--=--=--=--=-- Performing Laboratory: Bacteriology Report Performed By: [facility] [CLIA# [id number]] [address] [place] [address] Encounter Notes: All associated encounter notes This section contains the clinical notes associated to the Encounter. Date/Time Encounter Note(s) Provider Source Dec 15, 2021 04:52 SCANNED NOTE: ASHLEIGH GRANT VIVEK J CT PM LOCAL TITLE: Scanned Discharge Documents/Ollie peng [facility] STANDARD TITLE: SCANNED NOTE DATE OF NOTE: DEC 15, 2021@16:52 ENTRY DATE: DEC 15, 2021@16:52:53 AUTHOR: ASHLEIGH GRANT EXP COSIGNER: URGENCY: STATUS: COMPLETED Admissions:12.06.21 Discharge:12.15.21@1155 1 [facility] Discharge Documents have been scanned. To view these documents online, click the [employer] Tools menu and choose Imaging Display (Viewer). /es/ ASHLEIGH GRANT [facility] Signed: 12/15/2021 16:53 Dec 15, 2021 11:56 DISCHARGE SUMMARY: ASHLY TODD [place] AM LOCAL TITLE: DISCHARGE SUMMARY [facility] STANDARD TITLE: DISCHARGE SUMMARY DICT DATE: DEC 15, 2021@17:52 ENTRY DATE: NOV 182021@17:53:08 DICTATED BY: ASHLY TODD ATTENDING: SALBADOR TOBAR URGENCY: routine STATUS: COMPLETED DISCHARGE SUMMARY Has ADDENDA ADMIT DATE: December 06, 2021 DISCHARGE DATE: 12/15/2021 FOLLOW UP RECOMMENDATIONS FOR PROVIDERS: -New medications include: famotidine 10 mg BID f or reflux and aspiration pneumonia risk. Added to regimen of BID PPI. No other medi cation changes occured -Thick liquid diet should be followed to reduce risk for ongoing aspiration. Despite significant weight loss prior to admissi on patient's weight was stable while admitted around 230 lbs. This should be mo nitored. -Consider CT chest in 4 weeks to assess for reso lution of aspiration pneumonia and for differentiation between this acute infection and possible recurrence/progression of lung adenocarcinoma in the setting patient being recently lost to Oncology follow up. However thi s may not be necessary with other advanced imaging recommended as below. -In evaluation for etiology of aspiration, patie nt underwent EGD which resulted in grossly abnormal findings concerning for maligna ncy. Biopsies pending at time of discharge, this should be followed up on. These results were communictaed to patient's Oncologist (Dr. Cameron) in [facility] who was following him for his stage III lung adenocarcinoma. A cancer syndrome should be considered -MRI abdomen was obtained due to lymphadenopathy found on CT. Radiology recommendations include PET scan and ultrasound guided liver biopsy for largest lesion seen in the liver -Palliative Care was contacct on day of discharg e for ongoing outpatient moral support. Patient is currently not expereincing s ymptoms related to this esophageal process however this may change. Goal s of care discussion may also need to be re-addressed and further information regarding the underlying diagnosis is obtained. - Patient discontinued metformin prior to admiss ion due to diarrhea which did not improve upon discontinuing this medication. Diarrhea resolved while inpatient and metformin was re-started upon disc harge. PRINCIPAL DIAGNOSIS*: Aspiration pneumonia SECONDARY DIAGNOSES*: Esophageal dysplasia OPERATIONS/PROCEDURES DURING CURRENT ADMISSION*: 12/09 Modfied Barium Swallow eval: Impression: 1. Gross, silent aspiration. 2. Large [...] note for add itional details and recommendations. 12/14 EGD Procedure FINDINGS: - Proximal and mid esophagus were normal from th e incisors to 30 cm. - Upon reaching the 30cm mo and extending to t he GEJ at 40 cm, the esophagus was grossly irregular with luminal narrowing and stricturing. The mucosa of the rig ht side of the esophagus appeared denuded, friable, and ulcerated with bleeding appreciated from minor scope contact. T he left portion of the esophagus demonstrated long, linear, cords of gr ossly irregular tissue (almost having the appearance o f varices), but did not compress with insufflation. These same cords (occuping the left lateral portion of the esopha dagoberto) were firm/hard when biopsied. Multiple biopsies were taken of the di stal esophagus. - The gastric body was regular with healthy appe aring ruggae - Duodenum unremarkable DIAGNOSIS: - 10 cm segment (30-40 cm) of grossly irregular esophagus, concerning for malignancy RECOMMENDATIONS: - Path pending - Return patient to [facility] for ongoing ca re 12/09 Laryngoscopy Per ENT Consult: 71-year-old male seen for flexible laryngoscopy due to gross aspiration of liquids during a recent MBS. Cynthia Hernandez, TECHNICAL SUPPORT AGENT, was present during the examinati on. There is no evidence of neoplasm of the larynx. Both vocal cords appear to be moving well without evidence of vocal cord paralysis. Reassurance wa s provided. -CONSULTS DURING CURRENT ADMISSION: -Pulmonology consult -Infectious Disease Consult -Speech Pathology consult -Physical therapy -ENT consult -Nutrition HISTORY OF PRESENT ILLNESS (from Admission H&P): Mr. Lucas Meek is a 71 year old MALE with a history of Stage IIIa adenocarcinoma EGFR/ALK negative s/p chemotherap y/radiation/dervalumab, COPD, diverticulitis s/p partial colonic resection, ch ronic low back pain s/p discectomy here for a 6 month history of 71 poun d unintentional weight loss, fatigue, weakness, anorexia, odynophagia, myalgi as, intermittent diarrhea and general malaise alongside a 10 day history acute ly of increased sputum production, SOB, and recent COVID+ test on home kit after recent sick contact exposure( had COVID+). The patient i n the last 10 days has felt progressively worse and was implored by his to present to the emegency department given his worsening SOB, nausea, clark ise and odynopahgia. He is followed by Dr. Cameron at [facility] for monitoring o f his hx of lung cancer however the patient reports that he has not seen his oncologist in over 6 months with the most recent chest CT performed a [facility] back in june of 2021. The patient on ED examination was found to have near complete opacification of right hemithorax on chest X-ray; with subsequ ent CT showing evidence of new abnormal pulmonary findings suggestive of a large volume aspiration event. The patient was started on remdesevir and given one dose of pip/tazo 4.5 mg however was subsequently started on empir ic abx treatment(ceftriaxone and metronidazole) with discountination of pip/t azo. His UA was unremarkable, he had blood cultures d rawn X2, his BNP was 224, he had no leukocytosis evident, he had a negative t roponin and his electrolytes were within normal limits. Influenza A and B and RSV were negative however he had a positive COVID test. 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 He denies any recretional drug use or IV drugs. He is COVID vaccinated with one booster. He uses a cane to a mbulate at home and his is a primary support for him. He has a 102 pack year smoking history but quit in 2016. He denies chest pain, chest palpations, acute vi sual changes or fevers chills. He endorses nausea, chronic cough, fatigue, weka ness, but denies presently SOB on medical interview of note. He takes all his medications as prescribed but d id discountinue metformin last week give concern for diarrhea subacutely. HOSPITAL COURSE: #SOB #aspiration PNA Patient initially presented with constellation o f symptoms principally surrounding the recent SOB and weakness which wa s determined to be likely in relation to radiologic evidence of aspiration pn eumonia. The patient was started on Ceftriaxone 2g QD and metronidazole 5 00 mg IV/PO from 12/06 to 12/09 with symptomatic improvement in respiratory stat us. The patient additionally had a speech pathology consult who performed a m odifed barium swallow on 12/09 and determined that the patient needed to be babita cinda on full liquids and mildly thickened due to ongoing aspiration. Pulm onology provider contracting consultant posited that the patient's symptoms likely principally s tem from aspiration pneumonia but repeat CT should be considered in 4 weeks to assess for resolution of infection. The ID provider contracting consultant recommended transit ion to Augmentin(Amoxicillin 875/Clav 125mg) BID for a total duration of anti biotic course of 7 days which he completed while admitted. #COVID+ On day of admission patient states that he teste d positive on home COVID test 10 days prior to ED presentation and ID recommen ded remdesivir 200mg IV once on 12/06 with continued subsequent remdesivir fro m 12/07 onward for a total duration of 4 day at 100mg IV. The patient was r emoved from precautions once appropriate and this was not needed upon dischar ge. #Difficulty Swallowing/Chronic Silent Aspiration Patient was seen by speech pathology and had mod ified barium swallow with report recommending that patient be placed on fu ll liquid and mildly thick diet. The patient received his medications crush ed in pills in the pudding or applesauce as needed. Patient additionally had E NT consult placed which resulted in laryngoscopy with benign findings (n o findings of lesions/masses in upper airway, no vocal chord dysfunction). CT abdomen was done to help characterize anatomy before EGD procedure and fo und a small hiatal hernia and incidental multilocular gastrohepatic soft tissu e and a new left adrenal mass. MRI was obtained to further investigate th e liver abnormality and was found to have multiple metastatic hepatic lesion s with lymphadenopathy. Following MRI, EGD was done to further character ize difficulty swallowing. This result is detailed above. Biopsies were obt ained and results were pending at time of discharge. Patient was contin ued on his previous dose of PPI and H2 raquel was added to this regimen. Nu trition in addition to TECHNICAL SUPPORT AGENT were consulted for recommendations on how to con tinue modified diet upon discharge. #Chronic Back Pain Patient was started on scheduled Tylenol which r esolved his chronic back pain. He was also instructed on using diclofenac gel directly to his back. He used an assisted walking device which mainly for ambulation from his bed to the restroom. #Left Adrenal Mass Patient had an incidental finding on CT of a lef t adrenal mass in addition to his previously known 2 right adrenal lesions. PE T scan for follow up is recommended as this may represent metastatic dis ease. #COPD Patient was continued on home inhaler regimen wi th no further modifications #HTN Patient was continued on home amlodipine and [place] with further modifications #GERD Patient was initially on home PPI home regimen h owever he was switched from PPI to famotidine 10mg PO BID on 12/08 after ther e was discussion of some electrolyte abnormalities(hypokalemia and hypoma gnesemia) likely related to PPI use. We generously repeated potassium and ma gnesium as needed. #depression Patient continued on home sertraline with no fur ther modifications. #Vit D deficiency Patient continued on home cholecalciferol withou t further modifications. SIGNIFICANT LABS/DIAGNOSTICS: HEMATOLOGY: 12/15/2021 06:48 12/14/2021 06:33 12/13/2021 07:12 \ 10.8 / \ 11.2 / \ 11.0 / 5.7 ------ 172 6.0 ------ 168 5.6 ------ 165 / 35.0 \ / 35.7 \ / 35.4 \ PMN: 78.3% H LYMPH: 13.6% L MONO: 6.7% EOS: 0.5% BASO: 0.4% BANDS: 0.5% A.8 L MCV: 82.9 RDW: 17.2 H MCH: 25.6 L RBC: 4.22 L RETICULOCYTES (%) AUTOMATED: 1.23 RETABS: 0.052 @ 12/07/2021 06:00 CHEMISTRY: Dec 15, 2021@07:06 Dec 14, 2021@07:01 137 105 9 / 137 104 10 / 102 - 99 3.8 26 0.64 \ Gap: 10` 4.0 25 0.67 \ Ga p: 12` ` - corrected for albumin eGFR(CKD-EPI 2020): >90.0 Calcium: 8.1 L @ 2021 07:06 Corrected Calcium: 9.4 (alb 2.4 on Dec 07, 2021) @ 12/15/2021 07:06 Phos: 3.1 Ma.8 @ 12/12/2021 06:00 Protein: 5.7 L Albumin: 2.4 L ALK: 109 ALT: 10 @ 12/07/2021 07:15 AST: 15 FIB-4 SCORE: 1.92 TBil: 0.4 @ 12/07/2021 07:15 Diagnostics: 12/06: Chest x-ray Impression: Near complete opacification of the right hemith orax likely due to a combination of pleural fluid and associated c ompressive atelectasis. A superimposed infectious process cannot entirely be excluded. The left lung is clear. 12/06 CT Thorax without constrast Impression: 1. A probable majority of the [...] CT or MRI for more definitive characterization. 12/10 CT abdomen and pelvis wo contrast FINDINGS: The absence of oral and intravenous [...] nonspecific celiac and portocaval lym ph nodes. 12/13 MRI Abdomen WWO Contrast FINDINGS: The absence of oral and intravenous [...] nonspecific celiac and portocaval lym ph nodes. CONDITION ON DISCHARGE: the patient was seen on day of discharge and was found to be safe and appropriate for discharge. CODE STATUS: Full Code DISCHARGE INSTRUCTIONS: Diagnosis:*Aspiration Pneumonia Reason for Hospitalization: *You were admitted to the hospital for an infec tion in your lung due to aspiration which is the process of swallowed fo od and stomach acids going from your digestive tract into your lungs. We t hink this is due to narrowing of the part of your esophagus that connects to your stomach. You had a procedure here called endoscopy that showed us significant abnormalities of your esophagus that makes us concerned for a ne w cancer. Samples from your esophagus were obtained and we are waiting on t he result from this to know more about what next steps would be. It is arcenio g to be very important for you to follow your new diet to reduce your risk of recurrent aspiration events and lung infections. It is also going to be very important for you to follow up with your Oncologist and your Primary Care Provider. DISCHARGE MEDICATIONS HOLD status within this medication list means y ou have an active prescription that will not be filled by pharmacy until you r equest a refill. It is an ACTIVE MEDICATION which you should con tinuing taking unless directed otherwise in these instructions after this medi cation list. Active Outpatient Medications (excluding Suppli es): Active Outpatient Medications Status 1) ALBUTEROL 90MCG (CFC-F) 200D ORAL INHL INHAL E 2 PUFFS ACTIVE BY MOUTH FOUR TIMES DAILY NEEDED FOR BREATHI NG 2) AMLODIPINE BESYLATE 5MG TAB TAKE ONE TABLET BY MOUTH ACTIVE EVERY DAY FOR BLOOD PRESSURE/HEART, DO NOT TAKE WITH GRAPEFRUIT JUICE 3) CARBOXYMETHYLCELLULOSE NA 0.5%(PF)OP BOB INS TILL ONE ACTIVE DROP IN BOTH EYES FOUR TIMES A DAY FOR DRYNESS 4) CHOLECALCIF 10MCG (D3-400UNIT) TAB TAKE ONE TABLET BY ACTIVE MOUTH EVERY DAY 5) DICLOFENAC NA 1% TOP GEL APPLY 4 GRAMS TO LO WER ACTIVE EXTREMITIES TOPICALLY FOUR TIMES DAILY NEEDE D FOR PAIN/INFLAMMATION. *DO NOT EXCEED 16 GRAMS DAILY TO ANY JOINT OF LOWER EXTREMITIES. DO NOT EXCEED 8 GRAMS DAILY TO ANY JOINT OF UPPER EXTREMITIES. DO NOT EXCEED TOTAL DOSE OF 32 GRA MS DAILY OVER ALL JOINTS. 6) FAMOTIDINE 10MG TAB TAKE ONE TABLET BY MOUTH TWICE A ACTIVE DAY FOR STOMACH ACID 7) LOSARTAN 25MG TAB TAKE ONE-HALF TABLET BY MO UT EVERY ACTIVE DAY FOR BLOOD PRESSURE/HEART 8) METFORMIN HCL 500MG 24HR SA TAB TAKE ONE TAB LET BY ACTIVE MOUTH EVERY DAY WITH A MEAL FOR DIABETES 9) OLODATEROL/TIOTROP 2.5MCG/ACTUAT 60D INH INH WARNER 2 ACTIVE PUFFS BY MOUTH EVERY DAY FOR BREATHING 10) OMEPRAZOLE 20MG EC CAP TAKE ONE CAPSULE BY MOUTH ACTIVE TWICE A DAY 30 MINUTES BEFORE MEALS FOR STOMACH ACID (TAKE HALF-HOUR BEFORE A MEAL) 11) SERTRALINE HCL 50MG TAB TAKE THREE TABLETS BY MOUTH ACTIVE EVERY DAY FOR DEPRESSION OR ANXIETY These are the CHANGES which have been made to y our MEDICATIONS. NEW medications: Medication Name Reason for Change and/or Furthe r Instructions Famotidine 10 mg twice daily This is an anti acid medication that will help with your acid reflux symptoms FOLLOW UP NEEDS A nurse will call you to check in 1-3 days afte r you are discharged. On this call, we will review: a. How you have been feeling since discharge, w ith attention to any worrisome symptoms and/or follow-up on any relevant home monitoring. b. Each of your current medications and how you are taking them. c. Whether you have received needed supplies. d. Review benito parts of the care plan, including : i. Follow-up appointment timing and appropriate ness ii. Laboratory and other diagnostic test schedu [facility] Appointments - Dec@08:00 COM CARE-PODIATRY Jan@10:00 [facility] DERM TERMINE B2RD Feb@10:00 [facility] EYE KOSKEY B3RF Mar@10:30 NEW PACT MD Appointments: Appointments TO BE Scheduled: Primary Care with Dr Aaron Jones Oncology with Dr Cameron If you do not receive a hospital follow-up appo intment with your primary care or a covering provider within one week of disch arge, please call toll free at [phone] ( ) IF YOU WOULD LIKE A COVID VACCINATION OR BOOSTE R, PLEASE CALL [phone] TO SCHEDULE AN APPOINTMENT. Labs pending at discharge: Biopsy results pendi ng Future labs or studies needed: SPECIAL INSTRUCTIONS: PHYSICAL ACTIVITY INSTRUCTIONS Activity as tolerated - no restrictions DIETARY INSTRUCTIONS Last diet order: Item Ordered Start Date FULL LIQUID DEC 14, 2021 Post discharge diet: THICKENED LIQUIDS: Thickened liquids are liquid s that are thickeded with a gel. It is not safe to drink regular, thin liqu ids because it could enter your lungs and may lead to pneumonia. The ME wi provide the thickening gel for you to use at home. When you are low on thi ckening gel, call you pharmacy and ask for a refill like you do with your medi cations. PCP: LIZZIE MELTON MD Inpatient Service :*Hospital Medicine Team 3 Inpatient Providers:*Salbador Ortiz, Ashly tirado, Curt Mcmanus CALL YOUR DOCTOR OR GO TO THE EMERGENCY ROOM IF :*you have new chest pain, shortness of breath, worsening ability to swall ow, fevers, chills, inability to have a bowel movement, or any new or concern ing symptoms please return to the Emergency Department If you have any symptoms, questions about medic ations, or other concerns, please call Toll Free at [phone] ) or [phone] extension [phone]. This will direct you to the ME call center. If it has been less than four days since your d ischarge and you would like to speak with one of your hospital providers, annette webster call Toll Free at [phone] ([phone]) or [phone] extension [phone]. Please have the following information readily available when yo u call: your inpatient service, your inpatient provider(s), and your p referred call back number. Your inpatient service and inpatient provider(s ) are listed above. If you would like to start or continue receivin g mental health services at the [facility], please contact or visit the [facility] where you can see both a mental h ealt provider and a therapist. No appointment is necessary. [facility] located in the [facility] and the hours of operation are Mo n-Fri 8 AM to 4 PM. To contact the [facility] by silvestre ne, please call [phone], extension [phone]. If you are a Terrell in crisis, free confidenti al support is available 08/01. To access this, you can call the [employer] Line at and Press 1 to talk to someone, or send a text mess age to [phone] to connect with a ME responder, or start an online chat session at [employer]. Crisis support for the deaf and hard of hearing can be reached at /emely/ ASHLY TODD Resident Physician Signed: 12/15/2021 18:34 /emely/ SALBADOR ORTIZ M.D. 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 Secondary diagnoses: Post-prandial chest pressure, resolved with dysp hagia dietary modification Goals of care Former tobacco use History of lung cancer Obesity COPD HTN Care transition: benito treatment and follow-up babita ns: - Follow up with OP oncology for PET scan - Follow up EGD biopsy for diagnosis - asked pat h to expedite - Consider lung re-imaging pending timing of PET CT - continue to support family and revisit GOC Please see the discharge summary for complete de tails, including medication changes and other plans. Salbador Ortiz MD IM & Pediatrics [facility] Medicine Pager [phone] x [phone] /es/ SALBADOR ORTIZ M.D. Signed: 12/16/2021 17:31 Dec 15, 2021 11:01 NURSING NOTE: TERRANCE ZAMORA J CT AM LOCAL TITLE: NURSING PROGRESS OTHER NOTE [facility] STANDARD TITLE: NURSING NOTE DATE OF NOTE: DEC 15, 2021@11:01 ENTRY DATE: DEC 15, 2021@11:01:08 AUTHOR: TERRANCE ZAMORA EXP COSIGNER: URGENCY: STATUS: COMPLETED Masimo/Safety Net YES - Applied site hand /es/ TERRANCE ZAMORA registered nurse Signed: 12/15/2021 11:01 Receipt Acknowledged By: * AWAITING SIGNATURE * CARLITOS ROLDAN Dec 15, 2021 11:01 NURSING DISCHARGE NOTE: TERRANCE ZAMORA JCT AM LOCAL TITLE: Discharge Note/Nursing [facility] STANDARD TITLE: NURSING DISCHARGE NOTE DATE OF NOTE: DEC 15, 2021@11:01 ENTRY DATE: DEC 15, 2021@11:01:30 AUTHOR: TERRANCE ZAMORA EXP COSIGNER: URGENCY: STATUS: COMPLETED Admission Date: Nov Admission Dx: pneumo rachel with COVID + Admitting Physician: ASHLY TODD Summary of hospitalization (to include treatment s, test preformed, etc: Pneumonia, COVID Patient Discharged with all belongings/supplies Patient discharged with all belongings and supp lies: HOME Condition at time of discharge:stable IV CATHETER STATUS ON DISCHARGE: Type of catheter and site: 20 Left AC IV catheter discontinued prior to transfer/disc harge; site without redness, swelling or drainage. Comments: removed without complications MEDICATION REVIEW: Discharge medications reviewed with the patient/ family. Medication information sheets given to patient. Patient Education: Patient education provided: Medications: List medication(s): see discharge instructions Teaching method utilized: Individual Discussion Patient verbalizes or demonstrates understandin g: States content correctly *Pressure Injury Education: Provided patient/caregiver education regarding causes and prevention of pressure injury. Patient Response to Education: Verbalized/Discu ssed essential concepts. Do you have difficulty reading or understanding what you read? No Family/Caregiver included? Yes Who: and daughter Patient continues to need reinforcement on: None Barriers to learning: None - ready to learn Patient response to education: Verbalizes/Discu sses essential concepts Does the patient have any questions at this dinora e? No Additional goals/planned follow-up: * see discharge instructions Patient needs medications at discharge: Patient given medications prior to discharge: se e discharge instructions WOUND CARE SUPPLIES n/a I have reviewed and resolved all active care babita ns at time of patient discharge. Comments: Patient discharged per current protoco l. Patient in stable condition, VSS, NAD. All belongings returned to patient. Discharge pa perwork reviewed with patient. Staff transported patient in wheelchair to [facility] te transportation; patient discharged without issue. /emely/ TERRANCE ZAMORA registered nurse Signed: 12/15/2021 12:23 Receipt Acknowledged By: 12/15/2021 12:30 /es/ CARLITOS ROLDAN Registered Nurse Dec 15, 2021 10:57 NUTRITION DIETETICS EDUCATION NOTE: CRISTINO SANTACURZ [facility] TITLE: Nutrition Patient Education [facility] STANDARD TITLE: NUTRITION DIETETICS EDUCATION NO TE DATE OF NOTE: DEC 15, 2021@10:57 ENTRY DATE: DEC 15, 2021@10:57:33 AUTHOR: CONY SANTACRUZ EXP COSIGNER: URGENCY: STATUS: COMPLETED EGD yesterday showed significant abnormalities w hich are likely r/t highly suspicious for severe metastatic neoplas itc disease. Team asked for education on modified diet for home, final recs are unclea r so t/w provided info on his current diet. Per pt, he majo lly dislikes the thickened liquids and is unsure if he will cont this at home but was willin g to d/c home with some packets to try at home. I: INTERVENTION/PLAN: - Food/nutrient delivery- Full liquids, mildly t hick with allowance of some minced and moist food items. - Nutrition Education -Full liquid diet -Minced and Moist diet -Additional diet recommendations: * Aim for 5-6 small meals/day * Chew your foods very well * Drink at least 2 Ensure Plus/day, 3 if you can * Choose mostly from the FULL LIQUID diet at [facility]. Choose 1 item from the MINCED AND MOIST diet per meal. - Nutrition Counseling -Discussed the ideal meal pattern and use of Ens ure, reviewed the education materials with pt. 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 He will be working with Palliative care, un sure of his prognosis and/or treatment plans, though if he decides on a more palliative approach less restriction of his diet should be considered for QOL. - Coordination of Nutrition care - medical team, TECHNICAL SUPPORT AGENT COMPREHENSION/MOTIVATION TO LEARN IS ASSESSED : [X ] FAIR, NEEDS PRACTICE [ X] FAIR RETURN DEMON STRATION [ ] GOOD [ ] GOOD COMMENTS, DISCUSSION [ ] EXCELLENT [ ] NO INTEREST IN BEHAVIOR CHANGE [ ] GOOD, NEEDS PRACTICE [ ] REFUSED INFORMATION BARRIERS TO LEARNING INCLUDE: none noted PLAN: --Will place and outpt order for Ensure Plus to be mailed to pt --Will call pt next week to see if he would also like an order for thickener or if he has chosen not to thicken liquids F/u: call in ~ 1 week /emely/ Cony Santacruz RD Clinical Dietitian Signed: 12/15/2021 11:05 Dec 15, 2021 10:39 TREATMENT PLAN DISCHARGE NOTE: ASHLY TODD [facility] LOCAL TITLE: DISCHARGE INSTRUCTION TO PATIENT P ART 1 OF 2 [facility] STANDARD TITLE: TREATMENT PLAN DISCHARGE NOTE DATE OF NOTE: DEC 15, 2021@10:39 ENTRY DATE: DEC 15, 2021@10:39:46 AUTHOR: ASHLY TODD EXP COSIGNER: SALBADOR ORTIZ URGENCY: STATUS: COMPLETED Discharge to Home Date of Discharge:*Nov Diagnosis:*Aspiration Pneumonia Reason for Hospitalization: *You were admitted to the hospital for an infec tion in your lung due to aspiration which is the process of swallowed fo od and stomach acids going from your digestive tract into your lungs. We t hink this is due to narrowing of the part of your esophagus that connects to your stomach. You had a procedure here called endoscopy that showed us significant abnormalities of your esophagus that makes us concerned for a ne w cancer. Samples from your esophagus were obtained and we are waiting on t he result from this to know more about what next steps would be. It is arcenio g to be very important for you to follow your new diet to reduce your risk of recurrent aspiration events and lung infections. It is also going to be very important for you to follow up with your Oncologist and your Primary Care Provider. DISCHARGE MEDICATIONS HOLD status within this medication list means you have an active prescription that will not be filled by pharmacy until you r equest a refill. It is an ACTIVE MEDICATION which you sh ould continuing taking unless directed otherwise in these instructions after this medi cation list. Active Outpatient Medications (excluding Suppli es): Active Outpatient Medications Status 1) ALBUTEROL 90MCG (CFC-F) 200D ORAL INHL INHAL E 2 PUFFS ACTIVE BY MOUTH FOUR TIMES DAILY NEEDED FOR BREATHI NG 2) AMLODIPINE BESYLATE 5MG TAB TAKE ONE TABLET BY MOUTH ACTIVE EVERY DAY FOR BLOOD PRESSURE/HEART, DO NOT TAKE WITH GRAPEFRUIT JUICE 3) CARBOXYMETHYLCELLULOSE NA 0.5%(PF)OP BOB INS TILL ONE ACTIVE DROP IN BOTH EYES FOUR TIMES A DAY FOR DRYNESS 4) CHOLECALCIF 10MCG (D3-400UNIT) TAB TAKE ONE TABLET BY ACTIVE MOUTH EVERY DAY 5) DICLOFENAC NA 1% TOP GEL APPLY 4 GRAMS TO LO WER ACTIVE EXTREMITIES TOPICALLY FOUR TIMES DAILY NEEDE D FOR PAIN/INFLAMMATION. *DO NOT EXCEED 16 GRAMS DAILY TO ANY JOINT OF LOWER EXTREMITIES. DO NOT EXCEED 8 GRAMS DAILY TO ANY JOINT OF UPPER EXTREMITIES. DO NOT EXCEED TOTAL DOSE OF 32 GRA MS DAILY OVER ALL JOINTS. 6) FAMOTIDINE 10MG TAB TAKE ONE TABLET BY MOUTH TWICE A ACTIVE DAY FOR STOMACH ACID 7) LOSARTAN 25MG TAB TAKE ONE-HALF TABLET BY MO UTH EVERY ACTIVE DAY FOR BLOOD PRESSURE/HEART 8) METFORMIN HCL 500MG 24HR SA TAB TAKE ONE TAB LET BY ACTIVE MOUTH EVERY DAY WITH A MEAL FOR DIABETES 9) OLODATEROL/TIOTROP 2.5MCG/ACTUAT 60D INH INH WARNER 2 ACTIVE PUFFS BY MOUTH EVERY DAY FOR BREATHING 10) OMEPRAZOLE 20MG EC CAP TAKE ONE CAPSULE BY MOUTH ACTIVE TWICE A DAY 30 MINUTES BEFORE MEALS FOR STOMACH ACID (TAKE HALF-HOUR BEFORE A MEAL) 11) SERTRALINE HCL 50MG TAB TAKE THREE TABLETS BY MOUTH ACTIVE EVERY DAY FOR DEPRESSION OR ANXIETY These are the CHANGES which have been made to y our MEDICATIONS. NEW medications: Medication Name Reason for Change and/or Furthe r Instructions Famotidine 10 mg twice daily This is an anti acid medication that wi ll help with your acid reflux symptoms FOLLOW UP NEEDS A nurse will call you to check in 1-3 days afte r you are discharged. On this call, we will review: a. How you have been feeling since discharge, w ith attention to any worrisome symptoms and/or follow-up on any relevant home monitoring. b. Each of your current medications and how you are taking them. c. Whether you have received needed supplies. d. Review benito parts of the care plan, including : i. Follow-up appointment timing and appropriate ness ii. Laboratory and other diagnostic test schedu ling Future Appointments - Dec@08:00 [facility] CARE-PODIATRY Jan@10:00 [facility] DERM TERMINE B2RD Feb@10:00 [facility] EYE KOSKEY B3RF Mar@10:30 NEW PACT MD Appointments: Appointments TO BE Scheduled: Primary Care with Dr Aaron Jones Oncology with Dr Cameron If you do not receive a hospital follow -up appointment with your primary care or a covering provider within one week of discharge, please call toll free at [phone] ( ) IF YOU WOULD LIKE A COVID VACCINATION O R BOOSTER, PLEASE CALL [phone] TO SCHEDULE AN APPOINTMENT. Labs pending at discharge: Biopsy results pendi ng Future labs or studies needed: SPECIAL INSTRUCTIONS: PHYSICAL ACTIVITY INSTRUCTIONS Activity as tolerated - no restrictions DIETARY INSTRUCTIONS Last diet order: Item Ordered Start Date FULL LIQUID DEC 14, 2021 Post discharge diet: THICKENED LIQUIDS: Thickened liquids are liquid s that are thickeded with a gel. It is not safe to drink regular, thin liqu ids because it could enter your lungs and may lead to pneumonia. The ME wi ll provide the thickening gel for you to use at home. When you are lo w on thickening gel, call you pharmacy and ask for a refill like you do with your medi cations. PCP: LIZZIE MELTON MD Inpatient Service :*Hospital Medicine Team 3 Inpatient Providers:*Ashly Rizzo, Curt Mcmanus CALL YOUR DOCTOR OR GO TO THE EMERGENCY ROOM IF :*you have new chest pain, shortness of breath, worsening ability to swall ow, fevers, chills, inability to have a bowel movement, or any new or concern ing symptoms please return to the Emergency Department If you have any symptoms, questions about medic ations, or other concerns, please call Toll Free at [phone] ([phone]) or [phone] extension [phone]. This will direct you to the ME call center. If it has been less than four days [facility] e your discharge and you would like to speak with one of your hospital providers, annette webster call Toll Free at [phone] ([phone]) or [phone] extension [phone]. Please have the following information readily available when yo u call: your inpatient service, your inpatient provider(s), and your p referred call back number. Your inpatient service and inpatient provider(s ) are listed above. If you would like to start or continue receivin g mental health services at the [facility], please contact or visit the [facility] where you can see both a mental h ealt provider and a therapist. No appointment is necessary. [facility] located in the [facility] and the hours of operation are -Sun 8 AM to 4 PM. To contact the [facility] by silvestre gómez, please call [phone], extension [phone]. If you are a Terrell in crisis, free confidenti al support is available 08/01. To access this, you can call the [employer] Line at and Press 1 to talk to someone, or send a text mess age to [phone] to connect with a [facility] responder, or start an online chat session at [facility]/Chat. Crisis support for the deaf and hard of hearing can be reached at /es/ ASHLY TODD Resident Physician Signed: 12/15/2021 11:27 /emely/ SALBADOR ORTIZ M.D. Cosigned: 12/15/2021 17:52 Dec 15, 2021 09:12 STUDENT NOTE: CELENA KENNY I [facility] TITLE: Medical Student Note [facility] STANDARD TITLE: STUDENT NOTE DATE OF NOTE: DEC 15, 2021@09:12 ENTRY DATE: DEC 15, 2021@09:13:09 AUTHOR: CELENA KENNY I EXP COSIGNER: KAITLIN ORTIZ URGENCY: STATUS: COMPLETED PROGRESS NOTE ID: Mr. Lucas Meek is a 71 year old male [employer] with a history of Stage IIIa adenocarcinoma of the lung s/p chemotherapy/radiation/dervalumab, COPD, diverti culitis s/p partial colonic resection, chronic low back pain s/p discectomy, 90 pack year hx of smoking, etoh abuse disorder, now s/p treatment for aspir ation pneumonia, found to have imaging and EGD findings consistent with me tastatic malignancy. 24 hours: Yesterday imaging and EGD findings returned high ly suspicious for severe metastatic neoplasitc disease. No acute events o vernihgt and VSS. SUBJECTIVE: This morning Pierre felt fine, about t he same as the last few days, does not endorse any pain at this time, no diffi culty breathing. PE: Vitals: T 97.1, P 98, RR 18, BP 145/80 General: Pleasant older man in no acute distress Head and Neck: supple neck with no evidence of l ymphadenopathy Respiratory: Lungs sounds absent in right base, diminished in left base, improved at the apex bilaterally. Cardiovascular: Irregular rate, normal S1, S2 wi th no murmurs Abdomen/GI/: slightly protruberent, non disten ded slightly tender in the right upper quadrant. Musculoskeletal:no bony deformities Neurological: EOMI, II-XII grossly intact Psychiatric/Mental Status: appropiate affect LABS CBC ths morning still shows stable normocytic an emia of 10.8 (was 11.2 yestersay), no leukocytosis, BMP unremarkable. ASSESSMENT 71 year old MALE with the above history found to be silently aspirating on barium swallow evaluation with imaging and scope findings of distal esophageal soft tisue changes, lymphadenopathy, multiple enhacing lesions of the liver and new L sided adrenal mass concernin g for metastatic malignancy- now s/p treatment of aspiration pneumonia. Pierre is now s/p IV and oral antibtiotics and s/p remdesivir treatment with resolution of his dyspnea and ability to maintai n SPO2>97% on room air, no longer on COVID precautions. He has been afebril e and wihtout leukocytosis since admission. Currently tolerating PO thick liquid diet. 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 ENT found no e vidence suggesting pathology or malignancy of his upper airways. PLAN: #Discharge today - To be seen by SW and palliative care #MRI soft tissue changes/EGD findings - Pathology pending - Will follow up outpatient with Dr. Cameron #DYSPHAGIA - Continue thck liquid diet at home #aspiration - As above - Continue thick liquid diet /es/ CELENA KENNY I Medical Student Signed: 12/15/2021 10:20 /emely/ SALBADOR ORTIZ M.D. Cosigned: 12/15/2021 16:46 Dec 15, 2021 08:29 TREATMENT PLAN DISCHARGE NOTE: [facility]D [facility] TITLE: DISCHARGE INSTRUCTION TO PATIENT P ART 2 OF 2 [facility] STANDARD TITLE: TREATMENT PLAN DISCHARGE NOTE DATE OF NOTE: DEC 15, 2021@08:29 ENTRY DATE: DEC 15, 2021@08:29:25 AUTHOR: ASHLY TODD EXP COSIGNER: SALBADOR ORTIZ URGENCY: STATUS: COMPLETED Additional Discharge Instruction: Required * *TOBACCO USE: We are committed to assisting Veterans with tob acco cessation. We offer outpatient tobacco cessation counselin g and prescription medication to assist you You are a non-smoker or have not smoked in the past 30 days. We support your healthy choice. *ALCOHOL USE: You do not drink alcohol or drink less than 2 d rinks per day for men and 1 drink per day for women. We support your health y choice. *SUICIDE RISK ASSESSMENT [place]-Suicide Severity Rating Scale (C-SSRS Screener) 1. Over [...] to do anything to end your life (fo r example, collected pills, obtained a gun, gave away valuables, matty t to the roof but didn't jump)? No 8. If YES, was this within the past 3 months? Response not required due to responses to other questions. /emely/ ASHLY TODD Resident Physician Signed: 12/15/2021 08:30 /emely/ SALBADOR ORTIZ M.D. Cosigned: 12/15/2021 16:46 Dec 15, 2021 08:00 NURSING NOTE: TERRANCE ZAMORA [facility] LOCAL TITLE: [facility] SKIN INSPECTION/ASSESSMENT [facility] STANDARD TITLE: NURSING NOTE DATE OF NOTE: DEC 15, 2021@08:00 ENTRY DATE: DEC 15, 2021@10:58:53 AUTHOR: TERRANCE ZAMORA EXP COSIGNER: URGENCY: STATUS: COMPLETED SKIN REINSPECTION/REASSESSMENT SKIN INSPECTION: Skin Color: Usual for ethnicity Skin Temperature: Warm Skin Moisture: Normal Skin Turgor: Elastic (normal/immediate) Nate Skin Assessment: The patient's Nate Scale Score is 22. The pat ient is considered not at risk for development of pressure ulcers/injurie s. Sensory perception -- ability to respond meanin gfully to pressure-related discomfort No impairment. Moisture -- degree to which skin is exposed to moisture Rarely moist. Activity -- ability to change and control body position Walks frequently. Mobility -- ability to change and control body position No limitation. Nutrition -- usual food intake patterns Adequate. Friction and shear No apparent problem. INTERVENTIONS: The pressure injury interventions were not need ed - patient/resident is not at risk. RISK FACTORS THAT INCREASE RISK FOR DEVELOPING PRESSURE INJURIES The patient/resident does not have any addition al risk factors. Localized abnormality: Abrasion: Location(s): healing scab on abdomen /emely/ TERRANCE ZAMORA registered nurse Signed: 12/15/2021 11:00 Receipt Acknowledged By: * AWAITING SIGNATURE * CARLITOS ROLDAN Dec 15, 2021 08:00 NURSING INPATIENT NOTE: [facility] LOC[facility] TITLE: VAAES ACUTE INPATIENT NSG SHIFT SESSMENT [facility] STANDARD TITLE: NURSING INPATIENT NOTE DATE OF NOTE: DEC 15, 2021@08:00 ENTRY DATE: DEC 15, 2021@10:53:16 AUTHOR: TERRANCE ZAMORA EXP COSIGNER: URGENCY: STATUS: COMPLETED Version 2.2 Charting in accordance with ME APPROVED ENTERPRI SE STANDARD (MEAES) ACUTE INPATIENT/REHABILITATION KENDRICK SING ADMISSION SCREENING, ASSESSMENT, AND STANDARDS OF CARE ASSESSMENT HANDOFF Bedside report and handoff completed Safety check completed PAIN ASSESSMENT Are you currently experiencing pain? No Pain Score: 0 CHAVEZ FALL SCALE & TIPS PROGRAM Chavez Fall Scale: The Chavez Fall scale was performed and score wa s 20. This is indicative of low risk of falls. History of falling in past 3 months? No Secondary diagnosis: No Ambulatory aid: None/bedrest/nurse assist Intravenous therapy/Heparin lock: Yes Gait/Transferring: Normal/bed rest/immobile Mental Status: Oriented to own ability/knows own limitations Fall Tailoring Interventions for Patient Safety (TIPS) Fall TIPS initiated with patient: Yes Fall TIPS reviewed with patient: Yes ENVIRONMENTAL SAFETY MANAGEMENT Implemented safety standards of care: -[place] to unit & environment -Adequate room lighting -Bed in low and locked position -Call light within reach -Personal items within reach -Traffic path in room free of clutter -Non-slip footwear -Upper/half length side rails up for bed mobili ty -Sensory aids within reach -Encourage patient to utilize sensory support NEUROLOGICAL Neurological Orientation: Oriented x4 Level of Consciousness (AVPU): Alert = Appears aware of and responsive to the environment on their own. Follows commands, open eyes spontaneously, and tract objects. Affect/behavior: Cooperative Calm Reynoso Agitation Sedation Scale (RASS): 0 Alert and calm Neurological-Aspiration Risk Assessment: Other: full liquid diet, mildy thick liquids NEUROMUSCULAR/NEUROVASCULAR EXTREMITIES ASSESSM ENT Strength: Nursing Clinical Director Bilateral: Strong Upper Extremity Bilateral: Full strength Lower Extremity Bilateral: Full strength Sensation: Upper Extremity Sensation Bilateral: Intact Lower Extremity Sensation Bilateral: Intact Temperature: Upper Extremity Temperature Bilateral: Warm Lower Extremity Temperature Bilateral: Warm CARDIOVASCULAR Heart Sounds: Heart Rate/Rhythm (without hall monitor): Irregular Capillary Refill: All 4 extremities, less than or equal to 3 seco nds. Peripheral Pulses: All 4 extremities, 3+ normal. Edema: None Cardiovascular - Embolism Prevention: Comment: enoxaparin RESPIRATORY Respirations: Unlabored Pattern: Regular Breath Sounds Auscultated: Anterior and posterior Left Upper Lobe: Clear Right Upper Lobe: Clear Right Middle Lobe: Clear Left Lower Lobe: Clear Right Lower Lobe: Clear GASTROINTESTINAL Last bowel movement: 12/15/2021 Bowel movement reported by patient-unwitnessed Elimination: Continent Abdominal Description: Protuberant (central obesity) Palpation: Soft, Non-tender Bowel Sounds: RUQ: Active LUQ: Active RLQ: Active LLQ: Active GENITOURINARY Elimination: Continent INTEGUMENTARY/SKIN/WOUND - (INCLUDING NATE) SEE NOTE: VAAES SKIN INPECTION/ASSESSMENT ACTIVITIES OF DAILY LIVING Hygiene ADLs: Eating: Independent Foot Care: Inspection Oral Care: Non-ventilator patient: Swabbing performed-Patient edentulous (lacking teeth) The was educated that poor oral hygiene increases the risk of hospital acquired pneumonia and dental problems like gingivitis and tooth decay. was educated using their preferr ed method and verbalized understanding. Comments: used mouthwash MOBILITY Mobility Status: Independent: Able to stand and step without staff assistance Steady standing balance Gait: Steady IV LINES Peripheral IV: Line #1: Assessment: Location: Left, Forearm Gauge: 20 Dressing Condition: Clean, dry, intact Site Condition: No redness, swelling, pain Line Status: Capped Flushed No blood return PSYCHOSOCIAL Type of Emotional Support Provided: 1:1 discussion, Hospitaliza tion discussion, Ventilation of feelings encouraged ADULT EDUCATION Education provided: Topic 1: Medications Specific Content: Method: Verbal Provided to: Patient Patient understanding of education content: Verbalized understanding /emely/ TERRANCE ZAMORA registered nurse Signed: 12/15/2021 10:58 Receipt Acknowledged By: * AWAITING SIGNATURE * CARLITOS ROLDAN Dec 15, 2021 08:00 NURSING INPATIENT NOTE: TERRANCE ZAMORA [facility] TITLE: [facility] NURSING FREQUENT DOCUMENTATI ON [facility] STANDARD TITLE: NURSING INPATIENT NOTE DATE OF NOTE: DEC 15, 2021@08:00 ENTRY DATE: DEC 15, 2021@11:00:15 AUTHOR: TERRANCE ZAMORA EXP COSIGNER: URGENCY: STATUS: COMPLETED Version 2.4 Charting in accordance with ME APPROVED ENTERPRI SE STANDARD (MEAES) ACUTE INPATIENT/REHABILITATION KENDRICK SING ADMISSION SCREENING, ASSESSMENT, AND STANDARDS OF CARE BRIEF CONFUSION ASSESSMENT METHOD - bCAM Feature 1: Mental Status Change: No change from baseline (bCam negative, no delirium) Feature 2: Inattention Exam Errors: 0-1 error ( bCam negative, no delirium) Feature 3: Altered level of Consciousness: RASS = 0, alert and calm Feature 4: Disorganized thinkin errors bCAM Result: Final Result Negative ORAL INTAKE (PERCENTAGE OF MEAL EATEN) Breakfast: 51% - 75% Patient declined to shower this AM. /es/ TERRANCE Rehman [facility] registered nurse Signed: 12/15/2021 11:00 Receipt Acknowledged By: * AWAITING SIGNATURE * CARLITOS ROLDAN Maryann Dec 15, 2021 05:47 NURSING INPATIENT NOTE: AMY SWEET [place] LOCAL TITLE: [facility] NURSING FREQUENT DOCUMENTATI ON [facility] STANDARD TITLE: NURSING INPATIENT NOTE DATE OF NOTE: DEC 15, 2021@05:47 ENTRY DATE: DEC 15, 2021@05:47:44 AUTHOR: AMY SWEET EXP COSIGNER: URGENCY: STATUS: COMPLETED Version 2.4 Charting in accordance with ME APPROVED ENTERPRI SE STANDARD (MEAES) ACUTE INPATIENT/REHABILITATION KENDRICK SING ADMISSION SCREENING, ASSESSMENT, AND STANDARDS OF CARE ACTIVITIES OF DAILY LIVING Hygiene ADLs: Oral Care: Non-ventilator patient: Patient teeth brushed: Independently BRIEF CONFUSION ASSESSMENT METHOD - bCAM Feature 1: Mental Status Change: No change from baseline (bCam negative, no delirium) Feature 2: Inattention Exam Errors: Feature 3: Altered level of Consciousness: Feature 4: Disorganized thinking: bCAM Result: Final Result Negative ENVIRONMENTAL SAFETY MANAGEMENT Implemented safety standards of care: -[place] to unit & environment -Adequate room lighting -Bed in low and locked position -Call light within reach -Personal items within reach -Traffic path in room free of clutter -Non-slip footwear -Upper/half length side rails up for bed mobili ty -Sensory aids within reach -Encourage patient to utilize sensory support /es/ AMY SWEET Registered Nurse Signed: 12/15/2021 05:48 Dec 15, 2021 02:18 NURSING INPATIENT NOTE: AMY SWEET [facility] TITLE: VAAES ACUTE INPATIENT NSG SHIFT SESSMENT [facility] STANDARD TITLE: NURSING INPATIENT NOTE DATE OF NOTE: DEC 15, 2021@02:18 ENTRY DATE: DEC 15, 2021@02:18:50 AUTHOR: AMY SWEET EXP COSIGNER: URGENCY: STATUS: COMPLETED Version 2.2 Charting in accordance with ME APPROVED ENTERPRI SE STANDARD (VAAES) ACUTE INPATIENT/REHABILITATION KENDRICK SING ADMISSION SCREENING, ASSESSMENT, AND STANDARDS OF CARE REASSESSMENT PAIN ASSESSMENT Are you currently experiencing pain? No ENVIRONMENTAL SAFETY MANAGEMENT Implemented safety standards of care: -[place] to unit & environment -Adequate room lighting -Bed in low and locked position -Call light within reach -Personal items within reach -Traffic path in room free of clutter -Non-slip footwear -Upper/half length side rails up for bed mobili ty -Sensory aids within reach -Encourage patient to utilize sensory support NEUROLOGICAL Neurological Orientation: Level of Consciousness (AVPU): Affect/behavior: Calm CARDIOVASCULAR Peripheral Pulses: Other Pulses: masimo - 82 RESPIRATORY Respirations: Unlabored Pattern: Regular GASTROINTESTINAL No bowel movement reported by patient GENITOURINARY Elimination: Continent INTEGUMENTARY/SKIN/WOUND - (INCLUDING NATE) SEE NOTE: VAAES SKIN INPECTION/ASSESSMENT IV LINES Peripheral IV: Line #1: Assessment: Location: Left, Antecubital Gauge: 20 Dressing Condition: Clean, dry, intact Site Condition: Line Status: Capped Flushed /emely/ AMY SWEET Registered Nurse Signed: 12/15/2021 02:20 Dec 14, 2021 09:38 NURSING NOTE: AMY SWEET [place] [facility] LOCAL TITLE: NURSING PROGRESS OTHER NOTE [facility] STANDARD TITLE: NURSING NOTE DATE OF NOTE: DEC 14, 2021@21:38 ENTRY DATE: DEC 14, 2021@21:38:41 AUTHOR: AMY SWEET EXP COSIGNER: URGENCY: STATUS: COMPLETED Masimo/Safety Net YES - Applied site finger /emely/ AMY SWEET Registered Nurse Signed: 12/14/2021 21:39 Dec 14, 2021 09:33 NURSING INPATIENT NOTE: AMY SWEET [place] LOCAL TITLE: VAAES ACUTE INPATIENT NSG SHIFT SESSMENT [facility] STANDARD TITLE: NURSING INPATIENT NOTE DATE OF NOTE: DEC 14, 2021@21:33 ENTRY DATE: DEC 14, 2021@21:34:03 AUTHOR: AMY SWEET EXP COSIGNER: URGENCY: STATUS: COMPLETED Version 2.2 Charting in accordance with ME APPROVED ENTERPRI SE STANDARD (VAAES) ACUTE INPATIENT/REHABILITATION KENDRICK SING ADMISSION SCREENING, ASSESSMENT, AND STANDARDS OF CARE ASSESSMENT HANDOFF Safety check completed PAIN ASSESSMENT Are you currently experiencing pain? No ENVIRONMENTAL SAFETY MANAGEMENT Implemented safety standards of care: -[place] to unit & environment -Adequate room lighting -Bed in low and locked position -Call light within reach -Personal items within reach -Traffic path in room free of clutter -Non-slip footwear -Upper/half length side rails up for bed mobili ty -Sensory aids within reach -Encourage patient to utilize sensory support NEUROLOGICAL Neurological Orientation: Oriented x4 Level of Consciousness (AVPU): Alert = Appears aware of and responsive to the environment on their own. Follows commands, open eyes spontaneously, and tract objects. Affect/behavior: Cooperative Calm CARDIOVASCULAR Heart Sounds: Normal (S1S2) Heart Rate/Rhythm (without hall monitor): Irregular Peripheral Pulses: All 4 extremities, 3+ normal. Edema: None RESPIRATORY Respirations: Unlabored Pattern: Regular Breath Sounds Auscultated: Posterior only Left Upper Lobe: Clear Right Upper Lobe: Clear Right Middle Lobe: Clear Left Lower Lobe: Clear Right Lower Lobe: Clear GASTROINTESTINAL Last bowel movement: 12/13/2021 Bowel movement reported by patient-unwitnessed Elimination: Continent Abdominal Description: Rounded Protuberant (central obesity) Palpation: Soft Bowel Sounds: RUQ: Active LUQ: Active RLQ: Active LLQ: Active GENITOURINARY Elimination: Continent INTEGUMENTARY/SKIN/WOUND - (INCLUDING NATE) SEE NOTE: VAAES SKIN INPECTION/ASSESSMENT IV LINES Peripheral IV: Line #1: Assessment: Location: Left, Antecubital Gauge: 20 Dressing Condition: Clean, dry, intact Transparent dressing Site Condition: No redness, swelling, pain Line Status: Capped Flushed /es/ AMY SWEET Registered Nurse Signed: 12/14/2021 21:39 Dec 14, 2021 06:31 INTERNAL MEDICINE ATTENDING NOTE: [place]ERNARD[place] ORTIZ [place] [facility] LOCAL TITLE: Attending Note Medical Service [facility] STANDARD TITLE: INTERNAL MEDICINE ATTENDING NOTE DATE OF NOTE: DEC 14, 2021@18:31 ENTRY DATE: DEC 14, 2021@18:31:45 AUTHOR: SALBADOR ORTIZ COSIGNER: URGENCY: STATUS: COMPLETED I have seen and examined this wi the Resident Hospital Medicine Team on rounds, and agree with eir documentation in bulk, emphasized and amended as follows: 1. 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 2. Aspiration pneumonia, s/p abx, with e ffusion, question concommitant role of liver metastases; pending formal read but team r eviewed with radiology today. The etiology of this could be largely obstructiv e in nature (eats, food gets stuck, silently aspirates when supine). His ches t pressure that has been occuring after meals is resolved with diet modif ication. I wonder about role for palliative radiation, excision, or stenting. Path pending from EGD. 3. Transtion; likely home tomorrow; daug hter and coming. Will let outside oncologist know. Patient coping very well but co ncerned about his . Offered telesales representative but reports no strong religio us thread. Will follow closely and offer support and option s for treatment. Rest per resident note. Pager [phone] Hospital medicine /es/ SALBADOR ORTIZ M.D. Signed: 12/14/2021 18:39 Dec 14, 2021 06:07 INTERNAL MEDICINE TRANSFER SUMMARIZATION NOTE: ASHLY TODD [facility] LOC[facility] TITLE: Crosscover Note/[facility] STANDARD TITLE: INTERNAL MEDICINE TRANSFER [facility] RIZATION NOTE DATE OF NOTE: DEC 14, 2021@18:07 ENTRY DATE: DEC 14, 2021@18:07:35 AUTHOR: ASHLY TODD EXP COSIGNER: SALBADOR ORTIZ URGENCY: STATUS: COMPLETED Brief Note reflecting Serious Illness Conversati on Discussed with Pierre today and his Rena (v ia telephone) findings of EGD and MRI abdomen. Conveyed to Pierre and Susan that EGD showed irregular changes of the tissue of the distal esophagus and that t his is concerning for malignancy. Biopsies were ob tained and we will need those results before we can comment further on any poten tial prognostication or treatment options, and that this would be best discussed with an Onc ologist. However, did also inform them of the several liver lesions and lymphadneopathy near that liver that are concerning for metastatic disease. Due to poor connection on the telephone the declan raymundo of the conversation was conducted with Pierre alone. Pierre was able to expr ess understanding of these results. He conveyed that his primary goal right now is to get home for his daughter's birthday on December 19. Quality of life for Pierre includes spending time with his at their camp in [facility]. A t this time Pierre states he would do what he has to do in terms of pursuin g any available treatments. However, he recognizes that this may be my time and he has lived longer than he even expected. He is will ing to continue his modified diet (thick liquid) to help prevent further aspirat ion but admits it may be difficult to continue this diet at home. His greatest worry right now is ho w this will impact his Susan. /es/ ASHLY TODD Resident Physician Signed: 12/14/2021 18:20 /emely/ SALBADOR ORTIZ M.D. Cosigned: 12/14/2021 18:43 Dec 14, 2021 05:19 INTERNAL MEDICINE NOTE: SALBADOR ORTIZ T LOCAL TITLE: General Internal Medicine Note [facility] STANDARD TITLE: INTERNAL MEDICINE NOTE DATE OF NOTE: DEC 14, 2021@17:19 ENTRY DATE: DEC 14, 2021@17:19:40 AUTHOR: CURT MCMANUS EXP COSIGNER: SALBADOR TOBAR URGENCY: STATUS: COMPLETED Date/Time of Admission: Nov 16:44 Allergies: LISINOPRIL Remote Allergy/ADR: RART - Remote Allergy/ADR No Remote Allergy/ADR Data available for this pa tient 24 hour events/subjective: No overnight events Active Inpatient Medications (excluding Supplies ): Active Inpatient Medications Status 1) ACETAMINOPHEN TAB 975MG PO TID ACTIVE 2) ALBUTEROL INHL,ORAL 2 PUFFS INHALATION ORAL Q ID PRN ACTIVE for breathing 3) AMLODIPINE TAB 5MG PO QD please hold if systo lic <90 ACTIVE 4) CARBOXYMETHYLCELLULOSE 0.5% SOLN,OPH ONE DROP OU QID ACTIVE 5) CHOLECALCIFEROL TAB 10MCG PO QD ACTIVE 6) DICLOFENAC 1% GEL,TOP 4 GRAMS TO LOWER EXTREM ITIES ACTIVE TOP QID PRN apply to low back for pain 7) ENOXAPARIN INJ 40MG/0.4ML SQ QD ACTIVE 8) FAMOTIDINE TAB 10MG PO BID ACTIVE 9) LOSARTAN TAB 12.5MG PO QD please hold if syst olic ACTIVE <90 10) MELATONIN CAP/TAB 3MG PO QHS PRN Sleep ACTIV E 11) OLODATEROL/TIOTROPIUM INHL,ORAL 2 PUFFS INHA LATION ACTIVE ORAL QD 12) OMEPRAZOLE CAP,EC 20MG PO BID-AC ACTIVE 13) SERTRALINE TAB 150MG PO QD ACTIVE Physical Exam: Vital signs (include range): DATE/TIME TEMP PULSE RESP BP PAIN WEIGHT 12/14/21 @ 1514 0 12/14/21 @ 1423 97.1 91 20 139/68 12/14/21 @ 1015 0 Ins/Outs: Weight: 234.2 lb [106.23 kg] (12/14/2021 07:22) General: NAD, laying in bed Head and Neck: supple neck Respiratory: Lungs sounds improved in apex of ri ght upper lobe and absent in right lower lobe, no rhonchi appreciated in left field today. Cardiovascular: RRR, no MRG Abdomen/GI/: protuberant but nondisten ded, hyperactive bowel sounds,soft and non tender Musculoskeletal:no bony deformities Neurological: EOMI, II-XII grossly intact Psychiatric/Mental Status: appropiate affect Diagnostics Labs: Imaging: PROCEDURE PERFORMED: EGD - biopsy DESCRIPTION OF PROCEDURE: Patient's medications, allergies, past medical, surgical, social and family histories were reviewed and updated as appropriate. A discussio n of informed consent was had with the patient and/or the patient's family prior to the procedure, including sedation. The alternatives, benefits and risks of the procedure including bu t not limited to perforation, hemorrhage, infection, adverse drug reaction and aspiration were discussed PROCEDURE TECHNIQUE: Informed consent was obtained for the procedure, including sedation. Risks of perforation, hemorrhage, infection, adver se drug reaction and aspiration were discussed. The patient was placed in position. Based on the pre-pro cedure assessment, including review of the patient's medical history, medications , allergies, and review of systems, the patient had been deemed to be an appropriate candidate for conscious sedati on; the patient was therefore sedated with the medications listed. The marilyn ent was monitored continuously with pulse oximetry, blood pressure monitoring, and direct observations. The [id number] was introduced and passed without difficulty to second part of duodenum. A careful inspection was made as the e ndoscope was withdrawn. Findings and interventions are described below: TYPE OF SEDATION: Deep Sedation MEDICATIONS: Per Anesthesia record TOLERANCE: Good TOTAL PROCEDURE TIME: 16 ESTIMATED BLOOD LOSS: None FINDINGS: - Proximal and mid esophagus were normal from th e incisors to 30 cm. - Upon reaching the 30cm mo and extend ing to the GEJ at 40 cm, the esophagus was grossly irregular with luminal narrowing and stricturing. The mucosa of the rig ht side of the esophagus appeared denuded, friable, and ulcerated with bleeding appreciated from minor scope contact. T he left portion of the esophagus demonstrated long, linear, cords of gr ossly irregular tissue (almost hav ing the appearance of varices), but did not compress with insufflation. These same cords (occuping the left lateral portion of the esopha dagoberto) were firm/hard when biopsied. Multiple biopsies were taken of the di stal esophagus. 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 Patient continues to improve from respiratory pe rspective, now off oral antibiotics for aspiration p neumonia. He completed his course of remdesiver, no longer on active COVID treatment or precautions per ID recommendations. MBS showed significant esophage al dysfunction with large amount of barium remai jerome in patient's esophagus. This is concerning for ongoing risk for aspiration. Have reached out to GI consultants about EGD, planned for Sunday. Per their request, obtain ed CT abdomen wo contrast first to better characterize GI anatomy prior to the EGD. CT scan review revealed new left adrenal mass and multi lobular gastrohepatic soft tissue. MRI was then done to assess liver findings which rev ealed ring enhanced lesions consistent with metastasis. Susequent EGD reveal ed findings stated above consistent with malignancy. Patient's acute presentation is best explained b y a silent aspiration event with subsequent development of aspiration pneumonia most likely due to obstruction/infmlammation of . PLAN: #SOB #aspiration PNA -S/p Ceftriaxone 2 g/day + metronidazole 500 mg IV/PO q 8(12/06 - 12/09) -Continue Augmentin 875/125 PO BID until 12/12 to complete 7 day course -appreciate pulmonology consult -appreciate ID consult #COVID+, resolved -Remdesivir 200 mg IV once(12/06) and 100 mg IV q d(12/07-12/09) -Off precautions 12/09 -appreciate ID recs #Difficulty Swallowing/Chronic Silent Aspiration -Appreciate TECHNICAL SUPPORT AGENT consult -CT abdomen wo contrast per GI:small hiatal portia ia with nonspecific distal esophageal wall thickening, multilobular gastroh epatic soft tissue -EGD this week, appreciate GI consult -Continue PPI -Added H2 raquel (famotidine 10 mg BID) -nutrition consult for diet education #Chronic Back Pain -start scheduled Tylenol -uses assisted walking device #Left Adrenal Mass -incidental finding on CT -f/u with nephrology and PET/MRI #Multilobular gastrohepatic sof tissue -incidental finding on CT -MRI this week for further investigation -if MRI not tolerated, plan abdominal ultrasound #COPD -home inhaler regimen #HTN -continue home amlodipine and losartan #GERD -omeprazole 20 mg BID -famotidine 10 mg BID #depression -continue home sertraline #other home meds -continue cholecalciferol -continue diclofenac gel VTE prophylaxis: [ ] Lovenox 40mg SC daily [ ] Lovenox 30mg SC daily (CrCl <30 but not on HD) [ ] Heparin 5000units SC TID (ESRD or other Soniya enox contraindication) [ ] patient declines VTE pharmacologic prophyla xis despite discussion of VTE risk [ ] Other pharmacologic VTE prophylaxis: [ ] Venodynes applied due to: [ ] pharmacologic prophylaxis contraindicated d ue to: [ ] high risk for VTE due to: /emely/ SALBADOR ORTIZ M.D. Signed: 12/16/2021 12:05 for CURT MCMANUS Resident Physician /charmaine ORTIZ M.D. Cosigned: 12/16/2021 12:05 Dec 14, 2021 03:13 NURSING INPATIENT NOTE: CARLITOS ROLDAN [place] PM LOCAL TITLE: VAAES [facility] T[facility]: NURSING INPATIENT NOTE DATE OF NOTE: DEC 14, 2021@15:13 ENTRY DATE: DEC 14, 2021@15:14:05 AUTHOR: CARLITOS ROLDAN COSIGNER: URGENCY: STATUS: COMPLETED Version 2.2 Charting in accordance with [facility] ENTERPRI SE STANDARD (MEAES) ACUTE INPATIENT/REHABILITATION [facility] ADMISSION SCREENING, ASSESSMENT, AND STANDARDS OF CARE REASSESSMENT PAIN ASSESSMENT Are you currently experiencing pain? No Pain Score: 0 ENVIRONMENTAL SAFETY MANAGEMENT Implemented safety standards of care: -[place] to unit & environment -Adequate room lighting -Bed in low and locked position -Call light within reach -Personal items within reach -Traffic path in room free of clutter -Non-slip footwear -Upper/half length side rails up for bed mobili ty -Sensory aids within reach -Encourage patient to utilize sensory support NEUROLOGICAL Neurological Orientation: Oriented x4 Level of Consciousness (AVPU): Alert = Appears aware of and responsive to the environment on their own. Follows commands, open eyes spontaneously, and tract objects. Affect/behavior: Cooperative Calm CARDIOVASCULAR Heart Sounds: Normal (S1S2) Heart Rate/Rhythm (without hall monitor): Irregular RESPIRATORY Respirations: Unlabored Pattern: Regular Breath Sounds Auscultated: Anterior and posterior Right Upper Lobe: Clear Left Upper Lobe: Clear Right Middle Lobe: Diminished Right Lower Lobe: Diminished Left Lower Lobe: Clear Supplemental Respiratory: Continuous Pulse Oximetry INTEGUMENTARY/SKIN/WOUND - (INCLUDING NATE) SEE NOTE: VAAES SKIN INPECTION/ASSESSMENT /es/ CARLITOS ROLDAN Registered Nurse Signed: 12/14/2021 15:15 Dec 14, 2021 01:58 UNDERWRITING SUPPORT SPECIALIST CONSULT: MERVIN REBOLLEDOT LOCAL TITLE: CONSULT - Customer Relations Assistant Home Care ( Inpatient) [facility] STANDARD TITLE: UNDERWRITING SUPPORT SPECIALIST CONSULT DATE OF NOTE: DEC 14, 2021@13:58 ENTRY DATE: DEC 14, 2021@13:58:43 AUTHOR: MERVIN REBOLLEDO COSIGNER: SALBADOR ORTIZ URGENCY: STATUS: COMPLETED CONSULT - Customer Relations Assistant Home Care (Inpatient ) Has ADDENDA TO: [facility] [address] [place] [address] Terrell: MR. LUCAS MEEK [address] [place] [address] [address] [place], [place] [address] Cell Phone: Payment : [place] Send Billing to: [facility] [address] [place] [address] Attn: Fee Services ([id number]) Authorization will be sent by [employer]ee [employer]. Ques tions about payment and authorization are to be directed to [employer]ee [employer] at [phone]. Admitting Diagnosis:pneumonia with COVID + If additional or changes in service(s) or freque ncy of ordered service(s) is necessary Please contact the Customer Relations Assistant: Customer Relations Assistant Point of Care:Génesis Seymour RNCM [phone] [facility] PCP: LIZZIE MELTON MD [phone] Services requested: Start Date:12/21/21 End Date:01/21/22 (X)SKILLED RN ORDERS: 2 hours x1 for initial vis it/ admission. 1 hour x 1-2 visits per week for 2 weeks with total visi ts of 4. Assess , vital signs, cardiopulmonary status , nutrition, hydration, elimination, meds effectiveness a nd management; reinforce education re health issues. (X)PT ORDERS: 1 hour x 1 Visits per week for 2 weeks with total vsits 2. Continue rehab for en durance, gait stability and strength with mobility and transfers. Home safety evaluation. Home exercise program if appropriate. /emely/ MERVIN REBOLLEDO CMSRN Signed: 12/14/2021 14:17 /es/ SALBADOR ORTIZ M.D. Cosigned: 12/14/2021 18:39 Receipt Acknowledged By: 12/15/2021 09:16 /es/ GÉNESIS SEYMOUR Registered Nurse 12/15/2021 ADDENDUM STATUS: COMPLETED ADDENDUM: Corrected VNA:[facility] [address] [place] [address] ([phone] Provide Services at: [facility] [address] [address] Diet:FULL LIQUID Post discharge diet: THICKENED LIQUIDS: Thickened liquids are liquid s that are thickeded with a gel. It is not safe to drink regular, thin liqu ids because it could enter into the lungs and may lead to pneumonia. The V A will provide the thickening gel to use at home. When low on thickening gel, call the [place] pharmacy and ask for a refill . /charmaine REBOLLEDO CMSRN Signed: 12/15/2021 14:33 /emely/ SALBADOR ORTIZ M.D. Cosigned: 12/15/2021 16:46 Dec 14, 2021 01:23 UNDERWRITING SUPPORT SPECIALIST NOTE: MERVIN REBOLLEDO LOCAL TITLE: Case Management Nursing Note [facility] STANDARD TITLE: UNDERWRITING SUPPORT SPECIALIST NOTE DATE OF NOTE: DEC 14, 2021@13:23 ENTRY DATE: DEC 14, 2021@13:23:29 AUTHOR: MERVIN REBOLLEDO COSIGNER: URGENCY: STATUS: COMPLETED This RNCM met bedside with patient known to CM. Patient S/P EGD, results to be discussed between patient and medical team. Patient accepting of recommended home VN A services. Patient requests [facility] for his home or [employer] x for at his camping site on [address] (patient did not know the address). SN and PT yury l be ordered. H/P, demos and pertinent information faxed to [facility] with request to admit to services after Holiday weekend per patient. /charmaine REBOLLEDO CMSRN Signed: 12/14/2021 13:39 Dec 14, 2021 11:50 NURSING NOTE: CARLITOS ROLDAN LOCAL TITLE: VAAES SKIN INSPECTION/ASSESSMENT [facility] STANDARD TITLE: NURSING NOTE DATE OF NOTE: DEC 14, 2021@11:50 ENTRY DATE: DEC 14, 2021@11:51:02 AUTHOR: CARLITOS ROLDAN EXP COSIGNER: URGENCY: STATUS: COMPLETED SKIN REINSPECTION/REASSESSMENT SKIN INSPECTION: Skin Color: Usual for ethnicity Skin Temperature: Warm Skin Moisture: Normal Skin Turgor: Elastic (normal/immediate) Nate Skin Assessment: The patient's Nate Scale Score is 20. The pat ient is considered not at risk for development of pressure ulcers/injurie s. Sensory perception -- ability to respond meanin gfully to pressure-related discomfort No impairment. Moisture -- degree to which skin is exposed to moisture Rarely moist. Activity -- ability to change and control body position Walks occasionally. Mobility -- ability to change and control body position No limitation. Nutrition -- usual food intake patterns Probably inadequate. Friction and shear No apparent problem. INTERVENTIONS: The pressure injury interventions were not need ed - patient/resident is not at risk. RISK FACTORS THAT INCREASE RISK FOR DEVELOPING PRESSURE INJURIES The patient/resident does not have any addition al risk factors. Localized abnormality: Bruising: Location(s): bilateral upper extremities Other: Location(s): mid abdominal scar Comment: small scab to middle of scar. /es/ CARLITOS RODLAN Registered Nurse Signed: 12/14/2021 11:53 Dec 14, 2021 10:50 NURSING INPATIENT NOTE: CARLITOS ROLDAN T LOCAL TITLE: MEAES NURSING FREQUENT DOCUMENTATI ON [facility] STANDARD TITLE: NURSING INPATIENT NOTE DATE OF NOTE: DEC 14, 2021@10:50 ENTRY DATE: DEC 14, 2021@10:50:51 AUTHOR: CARLITOS ROLDAN EXP COSIGNER: URGENCY: STATUS: COMPLETED Version 2.4 Charting in accordance with [place] APPROVED ENTERPRI SE STANDARD (MEAES) ACUTE INPATIENT/REHABILITATION [facility] ADMISSION SCREENING, ASSESSMENT, AND STANDARDS OF CARE ENVIRONMENTAL SAFETY MANAGEMENT Implemented safety standards of care: -[place] to unit & environment -Adequate room lighting -Bed in low and locked position -Call light within reach -Personal items within reach -Traffic path in room free of clutter -Non-slip footwear -Upper/half length side rails up for bed mobili ty -Sensory aids within reach -Encourage patient to utilize sensory support ORAL INTAKE (PERCENTAGE OF MEAL EATEN) Breakfast: None Reasons for Inadequate Intake: NPO /es/ CARLITOS ROLDAN Registered Nurse Signed: 12/14/2021 10:51 Dec 14, 2021 10:15 NURSING INPATIENT NOTE: CARLITOS ROLDAN [place] AM LOCAL TITLE: VAAES ACUTE INPATIENT NSG SHIFT SESSMENT [facility] STANDARD TITLE: NURSING INPATIENT NOTE DATE OF NOTE: DEC 14, 2021@10:15 ENTRY DATE: DEC 14, 2021@10:51:37 AUTHOR: CARLITOS ROLDAN EXP COSIGNER: URGENCY: STATUS: COMPLETED Version 2.2 Charting in accordance with [place] APPROVED ENTERPRI SE STANDARD (VAAES) ACUTE INPATIENT/REHABILITATION NURSING ADMISSION PENNY CANO, ASSESSMENT, AND STANDARDS OF CARE ASSESSMENT PAIN ASSESSMENT Are you currently experiencing pain? No Pain Score: 0 CHAVEZ FALL SCALE & TIPS PROGRAM Chavez Fall Scale: The Chavez Fall scale was performed and score wa s 20. This is indicative of low risk of falls. History of falling in past 3 months? No Secondary diagnosis: No Ambulatory aid: None/bedrest/nurse assist Intravenous therapy/Heparin lock: Yes Gait/Transferring: Normal/bed rest/immobile Mental Status: Oriented to own ability/knows own limitations Fall Tailoring Interventions for Patient Safety (TIPS) Fall TIPS initiated with patient: Yes Fall TIPS reviewed with patient: Yes ENVIRONMENTAL SAFETY MANAGEMENT Implemented safety standards of care: -[place] to unit & environment -Adequate room lighting -Bed in low and locked position -Call light within reach -Personal items within reach -Traffic path in room free of clutter -Non-slip footwear -Upper/half length side rails up for bed mobili ty -Sensory aids within reach -Encourage patient to utilize sensory support NEUROLOGICAL Neurological Orientation: Oriented x4 Level of Consciousness (AVPU): Alert = Appears aware of and responsive to the environment on their own. Follows commands, open eyes spontaneously, and tract objects. Affect/behavior: Cooperative Calm NEUROMUSCULAR/NEUROVASCULAR EXTREMITIES ASSESSM ENT Strength: Nursing Clinical Director Bilateral: Strong Upper Extremity Bilateral: Full strength Lower Extremity Bilateral: Full strength Sensation: Upper Extremity Sensation Bilateral: Intact Lower Extremity Sensation Bilateral: Intact Temperature: Upper Extremity Temperature Bilateral: Warm Lower Extremity Temperature Bilateral: Warm CARDIOVASCULAR Heart Sounds: Normal (S1S2) Heart Rate/Rhythm (without hall monitor): Irregular Peripheral Pulses: All 4 extremities, 3+ normal. Edema: Present Generalized Location: pedal edema bilaterally Cardiovascular - Embolism Prevention: Comment: scheduled lovenox injection RESPIRATORY Respirations: Unlabored Pattern: Regular Breath Sounds Auscultated: Anterior and posterior Right Upper Lobe: Clear Left Upper Lobe: Clear Right Middle Lobe: Clear, Diminished Right Lower Lobe: Clear, Diminished Left Lower Lobe: Clear Symptoms: Cough: Able to clear secretions Supplemental Respiratory: Continuous Pulse Oximetry GASTROINTESTINAL Last bowel movement: 12/13/2021 Bowel movement reported by patient-unwitnessed Stool: Description: Semi-formed Color: Amount: Passing flatus Elimination: Continent Abdominal Description: Protuberant (central obesity) Palpation: Soft, Non-tender Bowel Sounds: RUQ: Active LUQ: Active RLQ: Active LLQ: Active GENITOURINARY Elimination: Continent INTEGUMENTARY/SKIN/WOUND - (INCLUDING NATE) SEE NOTE: VAAES SKIN INPECTION/ASSESSMENT ACTIVITIES OF DAILY LIVING Hygiene ADLs: Eating: Independent Foot Care: Inspection Pericare: Independent Personal Care: Independent Toileting: Independent MOBILITY Mobility Status: Independent: Able to stand and step without staff assistance IV LINES Peripheral IV: Line #1: Assessment: Location: Left, Antecubital Gauge: 20 Dressing Condition: Clean, dry, intact Site Condition: No redness, swelling, pain Line Status: Capped /emely/ CARLITOS ROLDAN Registered Nurse Signed: 12/14/2021 10:57 Dec 14, 2021 08:56 NURSING NOTE: ELISA LUA [place] LOCAL TITLE: PACU/Same Day Recovery Note [facility] STANDARD TITLE: NURSING NOTE DATE OF NOTE: DEC 14, 2021@08:56 ENTRY DATE: DEC 14, 2021@08:56:47 AUTHOR: ELISA LUA EXP COSIGNER: URGENCY: STATUS: COMPLETED PRE-PROCEDURE: ARRIVAL TIME: Nov@08:44 S/P: EGD ANESTHESIA: General: see anesthesia flowsheet for details Airway: ET Tube Fluids In: 300ml LR Fluids Out: EBL: 0 LOC ON ARRIVAL: Drowsy/responds to verbal stimuli *PAIN: 0 Number Rating Scale (NRS) Location: n/a, patient denies PRN Medication: Not Used Effectiveness: n/a CARDIAC/PULMONARY: Rhythm: A-FIB :86-92 Blood Pressure:111-127/63-84 Pulse Oximetry 100 Heart Sounds: irregular Lung sounds: rhonchi in upper airways on arriva l, cleared with coughing. Clear throughout, diminished in R lower lobe. Respiratory rate:15-19 Oxygen: FM 6L Transitioned to room air with SpO2 97-98 CIRCULATION: Color: within normal limits Temperature: cool. 96.8, 97.3 Moisture: dry Comments: warm blankets provided on arrival Venodynes: on b/l lower legs Peripheral Pulses Post-procedure: Left: dorsalis pedis, radial Right: dorsalis pedis, radial Palpation Comments: pulses palpable in all extremities GASTROINTESTINAL: No N/V Abdomen: Soft, Non-Tender D/C OR TRANSFER FLUIDS: Input: P.O. sips of mildly thickened H2O Output: Bladder Scanned for: 200ml at 0930 *IV SITE: Type: PERIPHERAL Gauge: #20 Location: L forearm IV catheter in place, dressing intact, Site wit hout redness, swelling, or drainage, Flushed and patent TRANSFER TO SANCHEZ: Meets [facility] Discharge Criteria for Phase 1 and Phase 2. Phase 2 score of 9 or greater, to move to the inpatient med/surg u nit/or discharge home Score:10 [facility]: 1S MED Attending: SALBADOR ORTIZ LOC: Awake/alert LOP: 0 Spinal: No Meds: none given in PACU Report given to: MADISYN Roldan DISCHARGE TIME: Nov@1000 /es/ ELISA LUA RN Signed: 12/14/2021 10:14 Dec 14, 2021 08:49 NURSING NOTE: JOSE GREGORY [facility] LOCAL TITLE: [facility] OPERATING ROOM/PROCEDURE FI RE RISK ASSESSMEN [facility] STANDARD TITLE: NURSING NOTE DATE OF NOTE: DEC 14, 2021@08:49 ENTRY DATE: DEC 14, 2021@08:49:14 AUTHOR: JOSE GREGORY EXP COSIGNER: URGENCY: STATUS: COMPLETED PROBLEM: FIRE RISK ASSESSMENT EXPECTED OUTCOME: Patient will remain free from injury related to surgical fire/ procedural fire NURSING ASSESSMENT: A. Is an alcohol-based skin antiseptic or other flammable solution being used preoperatively? No B. Is the procedure being performed above the x iphoid process or in the oropharynx? Yes, Interventions Coat head and facial hair near the site with wa ter-soluble surgical lubricant to decrease flammability. Use an adhesive incise drape between the surgic al/procedural site and the oxygen source. If oxygen concentration is greater than 30% con infection control nurse laryngeal mask airway or endotracheal tube. Comments: C. Is open oxygen or nitrous oxide being admini stered (delivery via nasal cannula or face mask)? No D. Is an ESU (Electrical Surgical Unit), laser, or fiber optic cord being used? Yes, Interventions Fiber-optic Light Use Place the light source in standby mode or turn it off when the cable is not in use. Inspect light cables before use and remove them from service if broken light bundles are visible. Connect all fiber-optic light cables before act ivating the light source. Place the light source on standby when disconne cting fiber-optic light cables. Secure the working end (ie, the end that is ins erted into the body) of the endoscope or cord on a moist towel or aw ay from any drapes, sponges, or other flammable materials. Comments: E. Other possible contributors to fire are pres ent (defibrillator, drills, saws, burrs) No OUTCOME: Option 1. Patient is free from fire/burn injury . Additional comments: /emely/ JOSE GREGORY registered nurse Signed: 12/14/2021 08:49 Dec 14, 2021 08:45 CONSENT: CAREY MCCLELLAN [facility] TITLE: CONSENT CLINICAL IMED [facility] STANDARD TITLE: CONSENT DATE OF NOTE: DEC 14, 2021@08:45:14 ENTRY DATE: DEC 14, 2021@07:45:20 AUTHOR: JENNIE LEVY EXP COSIGNER: URGENCY: STATUS: COMPLETED VistA Imaging - Scanned Document Signature Informed Consent for EGD EUS ([facility]) (Esophagogastroduodenoscopy (EGD) with Endoscopic Ultrasound (EUS)) 1. Anatomical Location: See description of treat ment/procedure 2. Informed consent was obtained at 7:39 AM on 12/14/21. The full consent document can be accessed [facility] [employer]. 3. Patient name: LUCAS MEEK 4. The patient HAS decision-making capacity. 5. Surrogate (if applicable): 6. Reason for the treatment (diagnosis, conditio n, or indication): This test is used to look at the digestive trac t and organs close by. It is often used to provide stage information about cancer. It can be used to diagnose other digestive conditions such as ston es. 7. Treatment/procedure: Your doctor will use an endoscope with an ultrasound probe in this test. An endoscope is a thin light ed tube. It is used for looking inside the body. It is also used as a ch ruben for small tools. An ultrasound probe is a tool that makes pictures u sing sound waves. The scope is placed in your mouth. It extends do wn your throat to your stomach and small intestine. The ultrasound prob e is on the tip of the scope. Your doctor may choose to do other procedures du ring the test. Your doctor may: * Remove tissue to be tested for disease. * Stretch narrow areas with balloons or other to ols * Use lasers to treat tissue. * Inject medicines to relieve tightening. * Use heat or medicines to control bleeding. * Inject dye to mo areas where abnormal tissue is present. * Place a tube in the esophagus or windpipe to p rotect your airway. * Place a tube in the esophagus and stomach to c ontrol bleeding. * Create a hole to drain fluid. * Remove pieces of lining tissue. 8. Anesthesia will be administered. A member of the anesthesia care team will visit you before your treatment to discuss the t ype(s) of anesthesia you may need and to give you more in formation about anesthesia. It may become necessary to alter your anesthesia car e plan after this discussion. Devices may be applied to your body and placed in your veins and arteri es to monitor you during your anesthesia. All forms of anesthesia involve some risk. Minor (not life-threatening) risks incl ude: nausea, vomiting, and pain where an injection is given. Although rare, severe complications include: inj ury to blood vessels, drug reactions, bleeding, blood c lots, loss of sensation or limb function, infection, paralysis, stroke, brain damage, heart attack, a nd . Here is a basic description of the major types o f anesthesia including their risks in addition to those described above: General anesthesia involves drugs that are injec jaguar into the bloodstream or breathed into the lungs. A t ube or other device may be inserted into your airway to help you breathe. The expected benefit is jeannette t you will be totally unconscious and you will not feel pain during the procedure. Additional risks include: injury to the teeth, throat, eyes, or lung. In less than one case in a thousand, patients may be aware of activities during their surgery. Spinal or epidural analgesia/anesthesia involves a drug being injected through a needle or catheter placed into the spinal jarad l. The expected benefit is a temporary decreased feeling in the area of surgical incision, allowing surgery to proceed without pain. Additional risks includ e: headache, backache, convulsions, persistent weak ness and or numbness, abnormal heart rhythms, and incomplete pain relief during the operation that may requir e general anesthesia. Major/minor nerve block involves a drug being in jected near nerves providing loss or reduction of sensati on and movement to the area. The expected benefit is a temporary loss of feeling and/or movem ent of a specific limb or area of your body. Additional risks include: convulsions, per sistent weakness and or numbness, and incomplete long n relief during the operation that may require general anesthesia. Monitored anesthesia care involves monitoring of the heart and lungs to make sure that they are functioning adequately during your procedure. A local anesthetic will be injected to prevent pain, and the anesthesia care provider may use drugs to help you relax, and lessen any pain. Yo u may remain conscious throughout your procedure, or you may be given m edications that will make you unconscious. The expected benefit is that you will be comfort able during your operation with a minimum amount of anesthesia. This may re sult in a shorter stay in the hospital. Additional risks i nclude: incomplete pain relief during the operation that may require additional anesthesia. Convulsions from the injected drug are a rare but serious complication. 9. Consent to Blood Products (if applicable): It is not expected that blood products will be used in this treatment/procedure. 10. Practitioner obtaining consent: Yamel Hill MD 11. Supervising practitioner: 12. Practitioner(s) performing or supervising tr eatment/procedure (if not listed above): 13. Witness Name(s): 14. Comments: SCANNED DOCUMENT SIGNATURE NOT REQUIRED Electronically Filed: 12/14/2021 by: JENNIE LEVY Dec 14, 2021 08:42 ANESTHESIOLOGY NOTE: RAMIREZ HILLMAN T LOCAL TITLE: Anesthesia Pre-Induction Note [facility] STANDARD TITLE: ANESTHESIOLOGY NOTE DATE OF NOTE: DEC 14, 2021@08:42 ENTRY DATE: DEC 14, 2021@08:42:09 AUTHOR: RAMIREZ HILLMAN EXP COSIGNER: URGENCY: STATUS: COMPLETED Document is the Anesthesia Flow Sheet today: 11/17 03/09 To view the scanned image cl icks the Tools menu in CPRS under the Image Display Viewer. I have examined patient on the date of surgery a nd agreed with the anesthesia preop evaluation from: 12/13/21 Patient was evaluated in preopholding area and t he patient is alert, oriented and not in any distress. NPO >8 hours. Allergies: as noted in CPRS VS: as noted in CPRS. Airways: Mallampati 3 ; Neck FRM; TMD 3FB; Denti tion: none Lungs: clear to auscultation bilaterally. + coug h Heart: heart tones irreg irreg, no M. ASA status: 3 Risk, Benefits, Assessment, Plan, and Op tions were discussed with the patient. Questions answered. The anesthesia plan: GA RSI Post-operative pain management discussed. The patient transferred to OR 3, the procedure l ocation. Reevaluated immediately prior to induction & start of the ca se. Fit for anesthesia. Present for induction and intubation. I was avai labeulogio during the case. /emely/ RAMIREZ HILLMAN Anesthesiologist Signed: 12/14/2021 08:43 Dec 14, 2021 07:56 NURSING OPERATIVE NOTE: JOSE GREGORY [facility] LOCAL TITLE: [facility]SE INTRAOPER[facility]IVE [facility]PORT [facility] STAND[facility] TITLE: NURSING OPERATIVE NOTE DATE OF NOTE: DEC 14, 2021@07:56 ENTRY DATE: DEC 14, 2021@08:40:51 AUTHOR: JOSE GREGORY EXP COSIGNER: URGENCY: STATUS: COMPLETED SUBJECT: Case #: [id number] NURSE INTRAOPERATIVE REPORT Has ADDENDA Operating Room: OR 3 Surgical Priority: ELECTIVE Patient in Hold: NOT ENTERED Patient in OR: DEC 14, 2021 07:56 Operation Begin: DEC 14, 2021 08:15 Operation En d: DEC 14, 2021 08:32 Patient Out OR: DEC 14, 2021 08:40 Major Operations Performed: Primary: EGD WITH BIOPSY Robotic Assistance (Y/N): NO Wound Classification: CLEAN Operation Disposition: SANCHEZ Discharged Via: STRETCHER Primary Surgeon: MICHELLE CALERO Box Blank Machine Operator: N/A Attending Surgeon: YAMEL HILL Second Assist: N/A Automatic Bandsaw Tender: BRITNEY FORBES [employer] Anesth: N/A OR Support Personnel: Scrubbed Circulating ROSAURA PAYNE () JOSE GREGORY () Preop Mood: ANXIOUS Preop Consc: ALERT-ORIENTED Preop Skin Integ: WARM, DRY & INTACT Preop Conve rse: N/A --- Time Out Checklist --- Confirm Correct Patient Identity: YES Confirm Procedure To Be Performed: YES Confirm Site of the Procedure, Including Lateral ity: YES Confirm Valid Consent: YES, i-MED Confirm Patient Position: YES Confirm Procedure Site has been Marked Nagi vizcaino and that the Site of the Mo is Visible After Prep and Draping: NO Pertinent Medical Images Have Been Confirmed: N/ A Correct Medical Implant(s) is Available: NOT POONAM LICABLE Availability of Special Equipment: YES Appropriate Antibiotic Prophylaxis: NOT INDICATE D Appropriate Deep Vein Thrombosis Prophylaxis: YE S Blood Availability: NOT INDICATED Checklist Comment: PT DID NOT HAVE PINK BRACLET ON. SCOPE NUMBER [id number] DR. MICHELLE CALERO VERIFIED INSTRUMENT SWEEP, P OST-PROCEDURE SCOPE CHECK BY HIM. Time-Out Document Completed By: JOSE GREGORY Time-Out Completed: DEC 14, 2021@08:05 Preop Surgical Site Hair Removal by: N/A Surgical Site Hair Removal Method: NO HAIR REMOV ED Hair Removal Comments: NO COMMENTS ENTERED Surgery Position(s): SUPINE Placed: N/A LATERAL DECUBITUS, LEFT DOWN Placed: N/A Restraints and Position Aids: PILLOW BETWEEN LEGS Applied By: N/A CALF-LENGTH VENODYNE KIEL. Applied By: N/A WARM BLANKETS AT START Applied By: N/A WARM BLANKETS AT END Applied By: N/A Anesthesia Technique(s): GENERAL Tubes and Drains: N Possible Item Retention: YES Sponge Final Count Correct: NOT APPLICABLE Sharps Final Count Correct: NOT APPLICABLE Instrument Final Count Correct: NOT APPLICABLE Wound Sweep: YES Wound Sweep Comment: NO COMMENTS ENTERED Intra-Operative X-Ray: NO Intra-Operative X-Ray Comment: NO COMMENTS ENTER ED Counter: JOSE GREGORY Counts Verified By: ROSAURA PAYNE Dressing: N Packing: NONE Blood Loss: 0 ml Urine Output: 0 ml Postoperative Mood: RELAXED Postoperative Consciousness: RESTING Postoperative Skin Integrity: WARM, DRY & INTACT Sequential Compression Device: YES Immediate Use Steam Sterilization Episodes: Contamination: 0 SPS Processing/OR Management Issues: 0 Emergency Case: 0 No Better Option: 0 Loaner or Short Notice Instrument: 0 Decontamination of Instruments Contaminated Dur ing the Case: 0 Nursing Care Comments: NO COMMENTS ENTERED /emely/ JOSE GREGORY registered nurse Signed: 12/14/2021 08:47 12/15/2021 ADDENDUM STATUS: COMPLETED The Wound Classification field was changed from CLEAN to CLEAN/CONTAMINATED Addendum Comment: vasqip validation /emely/ Rosaura VIERAN union representative Quality Nurse Signed: 12/15/2021 13:12 Dec 14, 2021 07:49 STUDENT NOTE: CELENA KENNY I [place] [facility] LOCAL TITLE: Medical Student Note [facility] STANDARD TITLE: STUDENT NOTE DATE OF NOTE: DEC 14, 2021@07:49 ENTRY DATE: DEC 14, 2021@07:49:38 AUTHOR: CELENA KENNY I EXP COSIGNER: KAITLIN ORTIZ URGENCY: STATUS: COMPLETED PROGRESS NOTE ID: Mr. Lucas Meek is a 71 year old male [employer] with a history of Stage IIIa adenocarcinoma of the lung s/p chemotherapy/radiation/dervalumab, COPD, diverticulitis s/p partial colonic resection, chronic low back pain s/p discectomy, 90 pack year hx of smoking, etoh abuse disorder, here for a subacute history of 70 pound unintentional weight loss, fatigue, weakness, anorexia, a pers istent sharp constant pain in his chest radiating to his abdomen, myalgias, in termittent diarrhea and general malaise over the last six months, alongs ezio an acute 10 day history of increased WOB, fatigue,sputum production, fol lowing recent COVID+ test on home kit after recent sick contact exposure, fou nd to be silently aspirating on barium swallow evaluation with CT imaging findings of distal esophageal soft tissue changes, lymphadenopa thy and new left sided adrenal mass now on hospital day 9 s/p antibiotic treatment for aspiration pn eumonia. 24 hours: Seen by ENT who found no roma ss pathology on felxible laryngoscopy. Official read of yesterday's MRI is pending, preliminary findi ngs highly suspicious for metastatic cancer to the liver and esophagous. E GD this morning showed gross pathology of a 10cm segment of the distal esophagous concerning for malignancy. No acute events overnight, VSS. SUBJECTIVE: This morning Pierre felt fine, about t he same as the last few days, does not endorse any pain at this time, no diffi culty breathing. PE: Vitals: T 97.1, P 98, RR 18, BP 145/80 General: Pleasant older man in no acute distress Head and Neck: supple neck with no evidence of l ymphadenopathy Respiratory: Lungs sounds absent in right base, diminished in left base, improved at the apex bilaterally. Cardiovascular: Irregular rate, normal S1, S2 wi th no murmurs Abdomen/GI/: slightly prot ruberent, non distended slightly tender in the right upper quadrant. Musculoskeletal:no bony deformities Neurological: EOMI, II-XII grossly intact Psychiatric/Mental Status: appropiate affect LABS CBC ths morning still shows stable normocytic an emia of 11.2 (was 11.0 yestersay), no leukocytosis, BMP unremarkable. ASSESSMENT 71 year old MALE with the above history found to be silently aspirating on barium swallow evaluation with imaging a nd scope findings of distal esophageal soft tisue changes, lymphade nopathy and new L sided adrenal mass concerning for malignancy-now s/p treatment of aspiration pneum onia. Pierre is now s/p IV and oral antibtiotics and s/p remdesivir treatment with resolution of his dyspnea and ability to maintai n SPO2>97% on room air, no longer on COVID precautions. He has been afebril e and wihtout leukocytosis since admission. Currently tolerating PO thick liquid diet. 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 Path ology report is pending and outpatient PET evaluation wi ll be more illuminating. ENT consult from yesterday found no evidence suggesting pathology or malign jose armando of his upper airways. PLAN: #MRI soft tissue changes/EGD findings - Pathology pending - Will follow up outpatient with Dr. Cameron #SOB #aspiration PNA -S/p Ceftriaxone 2 g/day + metronidazole 500 mg IV/PO q 8(12/06 - 12/09) -S/p Augmentin 875/125 PO 7 day course #COVID+, resolved -S/P Remdesivir 200 mg IV once(12/06) and 100 mg IV qd(12/07-12/09) -Off precautions 12/09 #DYSPHAGIA - s/p EGD and MRI #aspiration - As above - Continue thick liquid diet #COPD -home inhaler regimen #HTN -continue home amlodipine and losartan #GERD -omeprazole 20 mg BID -famotidine 10 mg BID #depression -continue home sertraline #Chronic Back Pain -start scheduled Tylenol #other home meds -continue cholecalciferol -continue diclofenac gel VTE prophylaxis: [X] Lovenox 40mg SC daily /es/ CELENA KENNY I Medical Student Signed: 12/14/2021 14:16 /es/ SALBADOR ORTIZ M.D. Cosigned: 12/14/2021 18:39 Dec 14, 2021 06:19 NURSING INPATIENT NOTE: AMY SWEET [place] LOCAL TITLE: [facility] NURSING FREQUENT DOCUMENTATI ON [facility] STANDARD TITLE: NURSING INPATIENT NOTE DATE OF NOTE: DEC 14, 2021@06:19 ENTRY DATE: DEC 14, 2021@06:19:04 AUTHOR: AMY SWEET EXP COSIGNER: URGENCY: STATUS: COMPLETED Version 2.4 Charting in accordance with [place] APPROVED ENTERPRI SE STANDARD (MEAES) ACUTE INPATIENT/REHABILITATION KENDRICK SING ADMISSION SCREENING, ASSESSMENT, AND STANDARDS OF CARE ACTIVITIES OF DAILY LIVING Hygiene ADLs: Oral Care: Non-ventilator patient: Patient teeth brushed: Independently BRIEF CONFUSION ASSESSMENT METHOD - bCAM Feature 1: Mental Status Change: No change from baseline (bCam negative, no delirium) Feature 2: Inattention Exam Errors: Feature 3: Altered level of Consciousness: Feature 4: Disorganized thinking: bCAM Result: Final Result Negative ENVIRONMENTAL SAFETY MANAGEMENT Implemented safety standards of care: -[place] to unit & environment -Adequate room lighting -Bed in low and locked position -Call light within reach -Personal items within reach -Traffic path in room free of clutter -Non-slip footwear -Upper/half length side rails up for bed mobili ty -Sensory aids within reach -Encourage patient to utilize sensory support /es/ AMY SWEET Registered Nurse Signed: 12/14/2021 06:19 Dec 14, 2021 05:10 SURGERY NURSING NOTE: [facility] TITLE: Same Day Preop Checklist [facility] STANDARD TITLE: SURGERY NURSING NOTE DATE OF NOTE: DEC 14, 2021@05:10 ENTRY DATE: DEC 14, 2021@05:10:21 AUTHOR: AMY SWEET EXP COSIGNER: URGENCY: STATUS: COMPLETED Same Day Preop Checklist Has ADDENDA PRE-OP SURGICAL CHECK LIST: N/A BinaxNOW covid test completed Result: Yes ID band on patient Consent signed/witnessed within 60 days of surg ajay Consent to be completed in PACU N/A Site marked (if not markable, pink band) Yes History and Physical to be completed Day of Procudure Yes ROM Yes Mental Health status A+Ox4 Yes EKG if patient older than 40 years within 30 days of surgery Yes Chest x-ray Yes Jewelry removed/secured N/A Hairpins/makeup/nail maltese removed Yes Glasses/contacts removed N/A Dentures/partial plate removed N/A Hearing aid(s) removed Yes Patient in IV gown Yes Voided or Catheter inserted N/A Patient will be ATF If yes, PVR prior to OR Result: N/A Type and cross match Has the patient had a transfusion of blood or b lood products in the last 3 months (red blood cells, plasma, platelets, cryoprecipitate, IVIg, Rh Immune Globulin) PLEASE NOTE: If YES or if patient is UNSURE - b lood specimen must be sent to the lab. (If female) Is the patient now or has the patie nt been in the last 3 months (, miscarriage, terminat ion)? PLEASE NOTE: If YES or if patient is UNSURE - b lood specimen must be sent to lab. Side rails up Allergies: LISINOPRIL Vital Signs: Temperature:97.5 F [36.4 C] (12/13/2021 21:20) Blood Pressure: 135/76 (12/13/2021 21:20) Pulse: 86 (12/13/2021 21:20) Pulse Oximetry: 12/13/21 @ 2120 PULSE OXIMETRY: 98 Respiration: 16 (12/13/2021 21:20) Height: 72 in [182.9 cm] (03/05/2019 11:48) Weight: 232.9 lb [105.64 kg] (12/13/2021 05:14) Lung Sounds:clear Heart Sounds:irregular Pain: 0 Location: Pain relieved by: scheduled acetaminophen Non-Pharmacological approaches utilized: Effectiveness: excellent PRN Medication: Not Used Effectiveness: YES NPO status: YES Skin integrity (abrasions/cuts): intact Skin prep with Andrzej Chlorhexidine 2% cloth N/A Do NOT allow 2% chlorhexidine gluconate (CHG) pr oduct to come in contact with the eyes, ears, nose, mucous membranes, genital or rectal areas or any open wounds. NO Any metal in body: YES Any AM blood work ordered: metabolic panel Completed: If female, test ordered: If yes, sent to lab: Active medications reviewed with patient/caregi [place] If NO, Does patient take any anti-coagulants? Yes enoxiparin Indicate last anti-coagulation dose taken: 022 0925 Comment: NO Beta-raquel taken: Time taken: If not taken why: YES Other Medications taken: AM 12/14 - acetamino phen, famotadine, omeprazole NO Diabetic Patient Blood Glucose Level (done in PACU): FS: Time: Insulin given: , Dose: Time: Peripheral Pulses Pre-Procedure: dorsalis pedis, radial dorsalis pedis, radial Palpation Biphasic Comment: Family contact information: FORMS TO BE PLACED IN CHART: N/A Precaution information and referral director or inside of chart N/A Print out of [facility] for day of surgery N/A Patient ID stickers N/A Booking sheet with antibiotic highlighted N/A Time Last Dose of Antibiotic given /emely/ AMY SWEET Registered Nurse Signed: 12/14/2021 05:14 12/14/2021 ADDENDUM STATUS: COMPLETED Pt reports he does have metal in body - states r ight knee replacement /emely/ AMY SWEET Registered Nurse Signed: 12/14/2021 05:28 12/14/2021 ADDENDUM STATUS: COMPLETED Patient arrived to PACU in a W/C occupied by [facility]. VS:97.1-98-18-145/80-SpO2-100% on room air. Adria emely pain. Irregular HR, LS-clear. /emely/ MARLEEN ARSHAD Registered Nurse, BSN Signed: 12/14/2021 07:31 Dec 14, 2021 04:07 NURSING INPATIENT NOTE: AMY SWEET [facility] TITLE: [facility] NURSING FREQUENT DOCUMENTATI ON [facility] STANDARD TITLE: NURSING INPATIENT NOTE DATE OF NOTE: DEC 14, 2021@04:07 ENTRY DATE: DEC 14, 2021@04:08:04 AUTHOR: AMY SWEET EXP COSIGNER: URGENCY: STATUS: COMPLETED Version 2.4 Charting in accordance with [place] APPROVED ENTERPRI SE STANDARD (MEAES) ACUTE INPATIENT/REHABILITATION KENDRICK SING ADMISSION SCREENING, ASSESSMENT, AND STANDARDS OF CARE ENVIRONMENTAL SAFETY MANAGEMENT Implemented safety standards of care: -[place] to unit & environment -Adequate room lighting -Bed in low and locked position -Call light within reach -Personal items within reach -Traffic path in room free of clutter -Non-slip footwear -Upper/half length side rails up for bed mobili ty -Sensory aids within reach -Encourage patient to utilize sensory support /es/ AMY SWEET Registered Nurse Signed: 12/14/2021 04:08 Dec 14, 2021 02:00 NURSING INPATIENT NOTE: [facility] SWEET [facility] [place] [facility] LOCAL TITLE: VAAES [facility] T[facility]: NURSING INPATIENT NOTE DATE OF NOTE: DEC 14, 2021@02:00 ENTRY DATE: DEC 14, 2021@02:00:24 AUTHOR: AMY SWEET EXP COSIGNER: URGENCY: STATUS: COMPLETED Version 2.2 Charting in accordance with [place] APPROVED ENTERPRI SE STANDARD (MEAES) ACUTE INPATIENT/REHABILITATION KENDRICK SING ADMISSION SCREENING, ASSESSMENT, AND STANDARDS OF CARE REASSESSMENT PAIN ASSESSMENT Are you currently experiencing pain? No ENVIRONMENTAL SAFETY MANAGEMENT Implemented safety standards of care: -[place] to unit & environment -Adequate room lighting -Bed in low and locked position -Call light within reach -Personal items within reach -Traffic path in room free of clutter -Non-slip footwear -Upper/half length side rails up for bed mobili ty -Sensory aids within reach -Encourage patient to utilize sensory support NEUROLOGICAL Neurological Orientation: Level of Consciousness (AVPU): Affect/behavior: Calm CARDIOVASCULAR Peripheral Pulses: Other Pulses: masimo - 98 RESPIRATORY Respirations: Unlabored Pattern: Regular GASTROINTESTINAL No bowel movement reported by patient GENITOURINARY Elimination: Continent INTEGUMENTARY/SKIN/WOUND - (INCLUDING NATE) SEE NOTE: VAAES SKIN INPECTION/ASSESSMENT IV LINES Peripheral IV: Line #1: Assessment: Location: Left, Antecubital Gauge: 20 Dressing Condition: Clean, dry, intact Site Condition: Line Status: Capped /emely/ AMY SWEET Registered Nurse Signed: 12/14/2021 02:01 Dec 13, 2021 10:06 NURSING NOTE: AMY SWEET [place] PM LOCAL TITLE: NURSING PROGRESS OTHER NOTE [facility] STANDARD TITLE: NURSING NOTE DATE OF NOTE: DEC 13, 2021@22:06 ENTRY DATE: DEC 13, 2021@22:06:24 AUTHOR: AMY SWEET EXP COSIGNER: URGENCY: STATUS: COMPLETED Masimo/Safety Net YES - Applied site finger /emely/ AMY SWEET Registered Nurse Signed: 12/13/2021 22:06 Dec 13, 2021 09:47 NURSING INPATIENT NOTE: AMY SWEET [place] LOCAL TITLE: VAAES ACUTE INPATIENT NSG SHIFT SESSMENT [facility] STANDARD TITLE: NURSING INPATIENT NOTE DATE OF NOTE: DEC 13, 2021@21:47 ENTRY DATE: DEC 13, 2021@21:47:32 AUTHOR: POLLY-LAKIA,AMY A EXP COSIGNER: URGENCY: STATUS: COMPLETED Version 2.2 Charting in accordance with [place] APPROVED ENTERPRI SE STANDARD (VAAES) ACUTE INPATIENT/REHABILITATION KENDRICK SING ADMISSION SCREENING, ASSESSMENT, AND STANDARDS OF CARE ASSESSMENT HANDOFF Safety check completed PAIN ASSESSMENT Are you currently experiencing pain? No ENVIRONMENTAL SAFETY MANAGEMENT Implemented safety standards of care: -[place] to unit & environment -Adequate room lighting -Bed in low and locked position -Call light within reach -Personal items within reach -Traffic path in room free of clutter -Non-slip footwear -Upper/half length side rails up for bed mobili ty -Sensory aids within reach -Encourage patient to utilize sensory support NEUROLOGICAL Neurological Orientation: Oriented x4 Level of Consciousness (AVPU): Alert = Appears aware of and responsive to the environment on their own. Follows commands, open eyes spontaneously, and tract objects. Affect/behavior: Cooperative Calm CARDIOVASCULAR Heart Sounds: Normal (S1S2) Heart Rate/Rhythm (without hall monitor): Irregular Peripheral Pulses: All 4 extremities, 3+ normal. Edema: None RESPIRATORY Respirations: Unlabored Pattern: Regular Breath Sounds Auscultated: Posterior only Left Upper Lobe: Clear Right Upper Lobe: Clear Right Middle Lobe: Clear Left Lower Lobe: Clear Right Lower Lobe: Clear GASTROINTESTINAL Last bowel movement: 12/12/2021 Abdominal Description: Rounded Protuberant (central obesity) Palpation: Soft, Non-tender Bowel Sounds: RUQ: Active LUQ: Active RLQ: Active LLQ: Active GENITOURINARY Elimination: Continent INTEGUMENTARY/SKIN/WOUND - (INCLUDING NATE) SEE NOTE: VAAES SKIN INPECTION/ASSESSMENT IV LINES Peripheral IV: Line #1: Assessment: Location: Left, Antecubital Gauge: 20 Dressing Condition: Clean, dry, intact Transparent dressing Site Condition: No redness, swelling, pain Line Status: Capped Flushed /es/ AMY MATIAS-LAKIA Registered Nurse Signed: 12/13/2021 22:06 Dec 13, 2021 06:23 NURSING INPATIENT NOTE: BETH BOLTON [place] LOCAL TITLE: MEAES NURSING FREQUENT DOCUMENTATI ON [facility] STANDARD TITLE: NURSING INPATIENT NOTE DATE OF NOTE: DEC 13, 2021@18:23 ENTRY DATE: DEC 13, 2021@18:23:57 AUTHOR: BETH BOLTON EXP COSIGNER: URGENCY: STATUS: COMPLETED Version 2.4 Charting in accordance with [place] APPROVED ENTERPRI SE STANDARD (MEAES) ACUTE INPATIENT/REHABILITATION KENDRICK SING ADMISSION SCREENING, ASSESSMENT, AND STANDARDS OF CARE ENVIRONMENTAL SAFETY MANAGEMENT Implemented safety standards of care: -[place] to unit & environment -Adequate room lighting -Bed in low and locked position -Call light within reach -Personal items within reach -Traffic path in room free of clutter -Non-slip footwear -Upper/half length side rails up for bed mobili ty -Sensory aids within reach -Encourage patient to utilize sensory support ORAL INTAKE (PERCENTAGE OF MEAL EATEN) Lunch: 51% - 75% Dinner: 51% - 75% /emely/ BETH BOLTON Registered Nurse Signed: 12/13/2021 18:24 Receipt Acknowledged By: 12/13/2021 18:34 /emely/ RADHA CUBA REGISTERED NURSE Dec 13, 2021 04:38 NURSING NOTE: BETH BOLTON [place] [facility] PM LOCAL TITLE: VAAES NSG IV INSERTION AND MAINTEN ANCE [facility] STANDARD TITLE: NURSING NOTE DATE OF NOTE: DEC 13, 2021@16:38 ENTRY DATE: DEC 13, 2021@16:38:15 AUTHOR: BETH BOLTON EXP COSIGNER: URGENCY: STATUS: COMPLETED Version 2.2 Charting in accordance with ME APPROVED ENTERPRI SE STANDARD (MEAES) ACUTE INPATIENT/REHABILITATION KENDRICK SING ADMISSION SCREENING, ASSESSMENT, AND STANDARDS OF CARE IV Line Insertion and Maintenance Peripheral IV Line #1: Assessment: Location: Left, Antecubital Gauge: 20 Dressing Condition: Clean, dry, intact Site Condition: No redness, swelling, pain Line Status: Capped Flushed /emely/ BETH BOLTON Registered Nurse Signed: 12/13/2021 16:38 Receipt Acknowledged By: 12/13/2021 16:42 /emely/ RADHA CUBA REGISTERED NURSE Dec 13, 2021 02:44 NURSING INPATIENT NOTE: BETH BOLTON [place] PM LOCAL TITLE: VAAES ACUTE INPATIENT NSG SHIFT SESSMENT [facility] STANDARD TITLE: NURSING INPATIENT NOTE DATE OF NOTE: DEC 13, 2021@14:44 ENTRY DATE: DEC 13, 2021@14:44:34 AUTHOR: BETH BOLTON EXP COSIGNER: URGENCY: STATUS: COMPLETED Version 2.2 Charting in accordance with ME APPROVED ENTERPRI SE STANDARD (VAAES) ACUTE INPATIENT/REHABILITATION KENDRICK SING ADMISSION SCREENING, ASSESSMENT, AND STANDARDS OF CARE REASSESSMENT PAIN ASSESSMENT Are you currently experiencing pain? No Pain Score: 0 ENVIRONMENTAL SAFETY MANAGEMENT Implemented safety standards of care: -[place] to unit & environment -Adequate room lighting -Bed in low and locked position -Call light within reach -Personal items within reach -Traffic path in room free of clutter -Non-slip footwear -Upper/half length side rails up for bed mobili ty -Sensory aids within reach -Encourage patient to utilize sensory support NEUROLOGICAL Neurological Orientation: Oriented x4 Level of Consciousness (AVPU): Alert = Appears aware of and responsive to the environment on their own. Follows commands, open eyes spontaneously, and tract objects. NEUROMUSCULAR/NEUROVASCULAR EXTREMITIES ASSESSM ENT Strength: Nursing Clinical Director Bilateral: Strong Upper Extremity Bilateral: Full strength Lower Extremity Bilateral: Full strength Sensation: Upper Extremity Sensation Bilateral: Intact Lower Extremity Sensation Bilateral: Intact Temperature: Upper Extremity Temperature Bilateral: Warm Lower Extremity Temperature Bilateral: Warm CARDIOVASCULAR Heart Sounds: Normal (S1S2) Heart Rate/Rhythm (without hall monitor): Irregular Capillary Refill: All 4 extremities, less than or equal to 3 seco nds. Peripheral Pulses: All 4 extremities, 3+ normal. Edema: None RESPIRATORY Respirations: Unlabored Pattern: Regular Breath Sounds Auscultated: Left Upper Lobe: Clear Right Upper Lobe: Clear Right Middle Lobe: Clear Left Lower Lobe: Clear Right Lower Lobe: Clear GASTROINTESTINAL Elimination: Continent Palpation: Soft, Non-tender Bowel Sounds: RUQ: Active LUQ: Active RLQ: Active LLQ: Active GENITOURINARY Elimination: Continent /es/ BETH Adrian BOLTON Registered Nurse Signed: 12/13/2021 14:46 Receipt Acknowledged By: 12/13/2021 14:47 /es/ RADHA Sherie CUBA REGISTERED NURSE Dec 13, 2021 11:14 ANESTHESIOLOGY PRE OPERATIVE E & M NOTE: [facility] LOCAL TITLE: Pre Op Note/Anesthesia [facility] STANDARD TITLE: ANESTHESIOLOGY PRE OPERATIVE E & M NOTE DATE OF NOTE: DEC 13, 2021@11:14 ENTRY DATE: DEC 13, 2021@11:14:44 AUTHOR: ANAHI CARBAJAL COSIGNER: URGENCY: STATUS: COMPLETED I. HISTORY PREOP DIAGNOSIS: weight loss/swallowing issue PROPOSED PROCEDURE: EGD Proposed date of surgery/procedure: Nov Age: 71 Sex: MALE HT: 72 in [182.9 cm] (03/05/2019 11:48) WT: 232.9 lb [105.64 kg] (12/13/2021 05:14) BMI: BODY MASS INDEX - NO HEIGHTS FOUND ALLERGIES: LISINOPRIL HISTORY OF PRESENT ILLNESS: see GI/GIM notes Aspiration risk currently being Rx for aspiratio n PNA Significant reflux on an empty stomach GERD/obes ity PAST SURGICAL HISTORY: includes: mult ventral hernia repairs- last OU cataracts ex lap w/ileocecal resection 02/2019 RTKA discetomy EGD/EUS No significant personal/family history of anesth etic complications SOCIAL HISTORY Tobacco Use Smoking >90 Pack-Years Quit smoking 2015 ETOH Yes- Quit 2015 Active Inpatient Medications (excluding Supplies ): Active Inpatient Medications Status 1) ACETAMINOPHEN TAB 975MG PO TID ACTIVE 2) ALBUTEROL INHL,ORAL 2 PUFFS INHALATION ORAL Q ID PRN ACTIVE for breathing 3) AMLODIPINE TAB 5MG PO QD please hold if systo lic <90 ACTIVE 4) CARBOXYMETHYLCELLULOSE 0.5% SOLN,OPH ONE DROP OU QID ACTIVE 5) CHOLECALCIFEROL TAB 10MCG PO QD ACTIVE 6) DICLOFENAC 1% GEL,TOP 4 GRAMS TO LOWER EXTREM ITIES ACTIVE TOP QID PRN apply to low back for pain 7) ENOXAPARIN INJ 40MG/0.4ML SQ QD ACTIVE 8) FAMOTIDINE TAB 10MG PO BID ACTIVE 9) LORAZEPAM TAB 0.5MG PO ONCE To be taken prior to MRI ACTIVE 10) LOSARTAN TAB 12.5MG PO QD please hold if sys tolic ACTIVE <90 11) MELATONIN CAP/TAB 3MG PO QHS PRN Sleep ACTIV E 12) OLODATEROL/TIOTROPIUM INHL,ORAL 2 PUFFS INHA LATION ACTIVE ORAL QD 13) OMEPRAZOLE CAP,EC 20MG PO BID-AC ACTIVE 14) SERTRALINE TAB 150MG PO QD ACTIVE Abnormal Respiratory Findings: COPD: Other Lung Disease(s): lung cancer s/p xrt/chem o Other Respiratory Comments: aspiration pneumoni a Abnormal Cardiac Findings: HTN ECG Result: 12/06/21 NSR, Nonspecific T wave changes, Nonspecific ST segment changes Other comments: PAC Abnormal Neurologic Findings: Mental Health Problems: depression Abnormal Gastroenterology Findings: GERD: early satiety; weight loss Obesity Abnormal Musculoskeletal System Findings: DJD CLBP OA Other Musculoskeletal Findings: SCCA L arm Significant infectious diseases: Other Significant Infectious Disease Findings: + recent COVID s/p remdesivir rx. no longer on precautions per ID II. PHYSICAL EXAM The patient is: to be evaluated by an anesthesiologist prior to the planned procedure Vital Signs: BP: 132/81 (12/13/2021 05:14) Pulse: 75 (12/13/2021 05:14) Sp02: 12/13/21 @ 0514 PULSE OXIMETRY: 98 Resp: 18 (12/13/2021 05:14) Temp: 97.8 F [36.6 C] (12/13/2021 05:14) LATEST LAB RESULTS: WBC: 5.6 (12/13/21 06:00) PLT: 165 (12/13/21 06:00) HCT: 35.4 (12/13/21 06:00) HGB: 11.0 (12/13/21 06:00) NA: 136 (12/13/21 06:00) K: 3.9 (12/13/21 06:00) CL: 105 (12/13/21 06:00) CO2: 24 (12/13/21 06:00) GLU: 102 (12/13/21 06:00) BUN: 12 (12/13/21 06:00) CREATI: 0.66 (12/13/21 06:00) INR: 1.1 (02/12/19 10:09) PT : 12.6 (02/12/19 10:09) PTT.: 33.3 (02/12/19 10:09) Special labs/studies: III. SUMMARY OF THE OVERALL ASSESSMENT: ASA status: 4 ANESTHETIC PLAN, RISKS, BENEFITS AND ALTERNATIVE S including applicable General Anesthesia, Regional Anesthesia and Monitored A nesthesia Care were: discussed with neither the patient nor the [employer] due to circumstances. The patient is unable to give permission for th e above due to circumstances An attempt to accommodate the patient's anesthet ic preference will be made when feasible. The ultimate choice for anesthetic plan is at th e discretion of the anesthesia provider. Instructions given to patient: 1. NPO after midnight before the procedure. 2. Take ONLY the following medications with sip s of water on the morning of the procedure: /emely/ ANAHI CARBAJAL Anesthesiologist Signed: 12/13/2021 11:24 Dec 13, 2021 10:41 NUTRITION DIETETICS NOTE: CONY SANTACRUZ [facility] TITLE: Nutrition Follow-Up Note [facility] STANDARD TITLE: NUTRITION DIETETICS NOTE DATE OF NOTE: DEC 13, 2021@10:41 ENTRY DATE: DEC 13, 2021@10:41:38 AUTHOR: CONY SANTACRUZ EXP COSIGNER: URGENCY: STATUS: COMPLETED Pt is doing fairly well on his current diet, imp roved po overall and not experiencing the same symptoms he was prior. Dis cussed pt with TECHNICAL SUPPORT AGENT and ok to trial 1 Minced and moist isela d item per tray, ie, mashed potato, scrambled eggs, minced meat, etc. Pt was [place] y happy to receive the eggs this morning. MRI today and EGD tomorrow which will help determi ne dispo plan in regard to diet needs. SUBJECTIVE: Appetite: improved N/V/D/C: + nausea at times Chewing/swallowing problems: + dysphagia/odynoph agia per MBS Current Diet: Full liquid, mildly thick IVF: none currently Enteral/Parenteral Nutrition: none Skin Condition: no pressure sores noted Laboratory Data: Reviewed, BG remains well controlled Pertinent Medications: reviewed NUTRITION-FOCUSED PHYSICAL EXAM/ASSESSMENT No obvious wasting noted, ma ybe some near his collar bone, unable to view lower extremities. Large belly, arms appeared normal f or his size/age. Nutrition Vitals: Height: 72 in [182.9 cm] (03/05/2019 11:48) Frame Size: LARGE Weight: 232.9 lbs 12/13 232.2 lbs 12/12 233.7 lb [106.00 kg] (12/06/2021 21:43) Weight Hx: wt loss of 50 lbs in past 5 m onths; 43 lbs in past 3 months (15.5%) HUMAN RESOURCE CONSULTANT. Weight currently seems stable w/ small fluc tuations Hunter Weight: 196 lbs % Hunter Wt: 118% BODY MASS INDEX - 31.56 12/12/21 Estimated Nutrition Needs: for maintenance Kilocalorie requirement: 2500 (28 kcals/kg IBW) Protein requirement: 127 (1.2 gm/kg ABW) Fluid requirement: (30-35 ml/kg) or per Team Nutrition Diagnosis: Unintentional weight loss ( ACTIVE) Related to: anorexia, nausea, diarrhea, SOB, swa llowing difficulty/discomfort with eating As evidenced by: 50 lbs weight loss in p ast 5 months, 43 lbs of that in past 3 months Nutrition Diagnosis: Inadequate oral intake (ACT MARK) Related to: dysphagia/? esophageal dysmo tility, early satiety, restricted diet As evidenced by: significant wt loss HUMAN RESOURCE CONSULTANT, calori e count results showing pt unable to meet est needs ETIOLOGY: Physiological/Metabolic INTERVENTION/PLAN: Nutrition Prescription - Full liquids w/ mildly thick liquids Food/nutrient delivery - --Per TECHNICAL SUPPORT AGENT ok to allow 1 soft solid (minced and m oist texture) at each meal --Likely will need a small, frequent meal patter n --4oz Ensure Plus w/ meals, 8 oz BID between damaso ls (3.5 total/day) --No frozen items per TECHNICAL SUPPORT AGENT, subbed out w/ pudding and high protein jello (is a mildly thick item) Nutrition Education: pending depending on final diet recs at d/c Coordination of Nutrition care - team, TECHNICAL SUPPORT AGENT Monitoring/Evaluation: Food/nutrition related history outcomes - New goal: Pt will consume enough at meals to zulema t at least 75% of his est needs --->Progress made, cont Anthropometric Measurement Outcomes- Avoid wt lo ss of >1.5 lbs/week during admission --->Currently met, cont Recommended f/u: 1 day /es/ Cony Santacruz RD Clinical Dietitian Signed: 12/13/2021 12:33 Dec 13, 2021 08:10 NURSING NOTE: BETH BOLTON [facility] TITLE: NURSING PROGRESS OTHER NOTE [facility] STANDARD TITLE: NURSING NOTE DATE OF NOTE: DEC 13, 2021@08:10 ENTRY DATE: DEC 13, 2021@08:25:26 AUTHOR: BETH BOLTON EXP COSIGNER: URGENCY: STATUS: COMPLETED Masimo/Safety Net YES /emely/ BETH BOLTON Registered Nurse Signed: 12/13/2021 08:25 Receipt Acknowledged By: 12/13/2021 08:26 /es/ RADHA CUBA REGISTERED NURSE Dec 13, 2021 08:07 NURSING INPATIENT NOTE: BETH BOLTON [place] AM LOCAL TITLE: MEAES NURSING FREQUENT DOCUMENTATI ON [facility] STANDARD TITLE: NURSING INPATIENT NOTE DATE OF NOTE: DEC 13, 2021@08:07 ENTRY DATE: DEC 13, 2021@08:24:01 AUTHOR: BETH BOLTON EXP COSIGNER: URGENCY: STATUS: COMPLETED Version 2.4 Charting in accordance with ME APPROVED ENTERPRI SE STANDARD (MEAES) ACUTE INPATIENT/REHABILITATION KENDRICK SING ADMISSION SCREENING, ASSESSMENT, AND STANDARDS OF CARE BRIEF CONFUSION ASSESSMENT METHOD - bCAM Feature 1: Mental Status Change: No change from baseline (bCam negative, no delirium) Feature 2: Inattention Exam Errors: 0-1 error ( bCam negative, no delirium) Feature 3: Altered level of Consciousness: RASS = 0, alert and calm Feature 4: Disorganized thinkin errors bCAM Result: Final Result Negative ORAL INTAKE (PERCENTAGE OF MEAL EATEN) Breakfast: 51% - 75% /emely/ BETH BOLTON Registered Nurse Signed: 12/13/2021 08:24 Receipt Acknowledged By: 12/13/2021 08:26 /emely/ RADHA CUBA REGISTERED NURSE Dec 13, 2021 08:05 NURSING NOTE: BETH BOLTON J CT AM LOCAL TITLE: VAAES SKIN INSPECTION/ASSESSMENT [facility] STANDARD TITLE: NURSING NOTE DATE OF NOTE: DEC 13, 2021@08:05 ENTRY DATE: DEC 13, 2021@08:22:07 AUTHOR: BETH BOLTON EXP COSIGNER: URGENCY: STATUS: COMPLETED SKIN REINSPECTION/REASSESSMENT SKIN INSPECTION: Skin Color: Usual for ethnicity Skin Temperature: Warm Skin Moisture: Normal Skin Turgor: Elastic (normal/immediate) Nate Skin Assessment: The patient's Nate Scale Score is 20. The pat ient is considered not at risk for development of pressure ulcers/injurie s. Sensory perception -- ability to respond meanin gfully to pressure-related discomfort No impairment. Moisture -- degree to which skin is exposed to moisture Rarely moist. Activity -- ability to change and control body position Walks occasionally. Mobility -- ability to change and control body position Slightly limited. Nutrition -- usual food intake patterns Adequate. Friction and shear No apparent problem. INTERVENTIONS: The pressure injury interventions were not need ed - patient/resident is not at risk. Localized abnormality: Bruising: Location(s): scattered BUE Other: Location(s): midline incisional scar /emely/ BETH BOLTON Registered Nurse Signed: 12/13/2021 08:23 Receipt Acknowledged By: 12/13/2021 08:25 /charmaine CUBA REGISTERED NURSE Dec 13, 2021 08:00 NURSING INPATIENT NOTE: BETH BOL[facility] [place] LOCAL TITLE: [facility] ACUTE INPATIENT NSG SHIFT SESSMENT [facility] STANDARD TITLE: NURSING INPATIENT NOTE DATE OF NOTE: DEC 13, 2021@08:00 ENTRY DATE: DEC 13, 2021@08:15:40 AUTHOR: BETH BOLTON EXP COSIGNER: URGENCY: STATUS: COMPLETED Version 2.2 Charting in accordance with [place] APPROVED ENTERPRI SE STANDARD (VAAES) ACUTE INPATIENT/REHABILITATION NURSING ADMISSION SCREE JEROME, ASSESSMENT, AND STANDARDS OF CARE ASSESSMENT HANDOFF Bedside report and handoff completed Safety check completed PAIN ASSESSMENT Are you currently experiencing pain? No Pain Score: 0 CHAVEZ FALL SCALE & TIPS PROGRAM Chavez Fall Scale: The Chavez Fall scale was performed and score wa s 35. This is indicative of moderate risk for falls. History of falling in past 3 months? No Secondary diagnosis: Yes Ambulatory aid: None/bedrest/nurse assist Intravenous therapy/Heparin lock: Yes Gait/Transferring: Normal/bed rest/immobile Mental Status: Oriented to own ability/knows own limitations Fall Tailoring Interventions for Patient Safety (TIPS) Fall TIPS initiated with patient: No Fall TIPS reviewed with patient: Yes ENVIRONMENTAL SAFETY MANAGEMENT Implemented safety standards of care: -[place] to unit & environment -Adequate room lighting -Bed in low and locked position -Call light within reach -Personal items within reach -Traffic path in room free of clutter -Non-slip footwear -Upper/half length side rails up for bed mobili ty -Sensory aids within reach -Encourage patient to utilize sensory support NEUROLOGICAL Neurological Orientation: Oriented x4 Level of Consciousness (AVPU): Alert = Appears aware of and responsive to the environment on their own. Follows commands, open eyes spontaneously, and tract objects. Affect/behavior: Cooperative Calm NEUROMUSCULAR/NEUROVASCULAR EXTREMITIES ASSESSM ENT Strength: Nursing Clinical Director Bilateral: Strong Upper Extremity Bilateral: Full strength Lower Extremity Bilateral: Full strength Sensation: Upper Extremity Sensation Bilateral: Intact Lower Extremity Sensation Bilateral: Intact Temperature: Upper Extremity Temperature Bilateral: Warm Lower Extremity Temperature Bilateral: Warm CARDIOVASCULAR Heart Sounds: Normal (S1S2) Heart Rate/Rhythm (without hall monitor): Irregular Capillary Refill: All 4 extremities, less than or equal to 3 seco nds. Peripheral Pulses: All 4 extremities, 3+ normal. Edema: None Cardiovascular - Embolism Prevention: Comment: enoxaparin inj RESPIRATORY Respirations: Unlabored Pattern: Regular Breath Sounds Auscultated: Left Upper Lobe: Clear Right Upper Lobe: Clear Right Middle Lobe: Clear Left Lower Lobe: Clear Right Lower Lobe: Clear GASTROINTESTINAL Last bowel movement: 12/12/2021 Bowel movement reported by patient-unwitnessed Elimination: Continent Palpation: Soft, Non-tender Bowel Sounds: RUQ: Active LUQ: Active RLQ: Active LLQ: Active GENITOURINARY Elimination: Continent INTEGUMENTARY/SKIN/WOUND - (INCLUDING NATE) SEE NOTE: VAAES SKIN INPECTION/ASSESSMENT ACTIVITIES OF DAILY LIVING Hygiene ADLs: Oral Care: Non-ventilator patient: Patient teeth brushed: Independently [facility] was educated that poor oral hygiene increases the risk of hospital acquired pneumonia and dental problems like gingivitis and tooth decay. was educated using their preferr ed method and verbalized understanding. MOBILITY Mobility Status: Independent IV LINES Peripheral IV: Line #1: Assessment: Location: Left, Antecubital Gauge: 20 Dressing Condition: Clean, dry, intact Site Condition: No redness, swelling, pain Line Status: Capped Flushed /es/ BETH Adrian BOLTON Registered Nurse Signed: 12/13/2021 08:21 Receipt Acknowledged By: 12/13/2021 08:25 /es/ RADHA CUBA REGISTERED NURSE Dec 13, 2021 07:44 STUDENT NOTE: CELENA KENNY J CT AM LOCAL TITLE: Medical Student Note [facility] STANDARD TITLE: STUDENT NOTE DATE OF NOTE: DEC 13, 2021@07:44 ENTRY DATE: DEC 13, 2021@07:44:43 AUTHOR: CELENA KENNY I EXP COSIGNER: KAITLIN ORTIZ URGENCY: STATUS: COMPLETED PROGRESS NOTE ID: Mr. Lucas Meek is a 71 year old male [employer] with a history of Stage IIIa adenocarcinoma of the lung s/p chemotherapy/radiation/dervalumab, COPD, diverti culitis s/p partial colonic resection, chronic low back pain s/p discectomy, 90 pack year hx of smoking, etoh abuse disorder, here for a subacute history of 70 pound unintentional weight loss, fatigue, weakness, anorexia, a pers istent sharp constant pain in his chest radiating to his abdomen, myalgias, in termittent diarrhea and general malaise over the last six months, alongs ezio an acute 10 day history of increased WOB, fatigue,sputum production, fol lowing recent COVID+ test on home kit after recent sick contact exposure, fou nd to be silently aspirating on barium swallow evaluation with concerning CT imaging findings for malignancy now on hospital day 8 being treated f or aspiration pneumonia. 24 hours: No acute events overnight, VSS. Yesterday finish ed his PO course of augmentin. SUBJECTIVE: This morning he says he is feeling g ood in no pain. Last bowel movement was yesterday which he descirbes as noah ng firm and of normal appearance. Tolerating PO diet, reports no odyno phagia-like symptoms. PE: Vitals: T 97.8, P 75, RR 16, BP 132/81 General: Pleasant older man in no acute distress Head and Neck: supple neck with no evidence of l ymphadenopathy Respiratory: Lungs sounds absent in right base, diminished in left base, improved at the apex bilaterally. Cardiovascular: Irregular rate, normal S1, S2 wi th no murmurs Abdomen/GI/: slightly prot ruberent, non distended slightly tender in the right upper quadrant. Musculoskeletal:no bony deformities Neurological: EOMI, II-XII grossly intact Psychiatric/Mental Status: appropiate affect LABS CBC ths morning still shows stable normocytic an emia of 11.0 (was 11.2 yestersay), no leukocytosis, BMP unremarkable. ASSESSMENT 71 year old MALE with a pertientant medical hist ory of Stage IIIa adenocarcinoma COPD, diverticulitis s/p partial colonic resection, here for a 6 month history of 70 pound unintentional weight loss, fatigue, weakness, anorexia, odynophagia, myalgias, intermittent di arrhea and general malaise alongside a 10 day history acutely of increased sputum production, SOB, and recent COVID+, found to be silently aspirating o n barium swallow evaluation here being treated for aspiration penumonia. Now s/p IV and oral antibiotic courses for for a spiration pneumonia as well as s/p remdesevir course for COVID19 with improv ement of subjecive malaise and objective breath sounds, he reports no cough at this time. Etiology of his esophageal dysfunction is still being investigated in house, imaging and history concerni ng for structural abnormality of distal esophagous. Malignancy is high on the differential g iven his history of smoking, drinking, and other malignancy combined with history of we ight loss, malaise and concerning imaging findings such as the esophage al and gastric soft tissue changes and new adrenal mass on CT. Other etiolo gies such as achalasia or diffuse esophageal spasm cou ld be considered at this time, but are less likely. PLAN: #SOB #aspiration PNA -S/p Ceftriaxone 2 g/day + metronidazole 500 mg IV/PO q 8(12/06 - 12/09) -S/p Augmentin 875/125 PO 7 day course #COVID+, resolved -S/P Remdesivir 200 mg IV once(12/06) and 100 mg IV qd(12/07-12/09) -Off precautions 12/09 #DYSPHAGIA - MRI planned for 1pm today - EGD planned for 3pm tomorrow - ENT evaluation today #aspiration - MRI, EGD, ENT as above - Continue thick liquid diet #COPD -home inhaler regimen #HTN -continue home amlodipine and losartan #GERD -omeprazole 20 mg BID -famotidine 10 mg BID #depression -continue home sertraline #Chronic Back Pain -start scheduled Tylenol #other home meds -continue cholecalciferol -continue diclofenac gel VTE prophylaxis: [X] Lovenox 40mg SC daily /emely/ CELENA KENNY I Medical Student Signed: 12/13/2021 11:34 /es/ SALBADOR ORTIZ M.D. Cosigned: 12/13/2021 15:28 Dec 13, 2021 07:31 INTERNAL MEDICINE NOTE: CURT MCMANUS [facility] TITLE: General Internal Medicine Note [facility] STANDARD TITLE: INTERNAL MEDICINE NOTE DATE OF NOTE: DEC 13, 2021@07:31 ENTRY DATE: DEC 13, 2021@07:31:49 AUTHOR: CURT MCMANUS EXP COSIGNER: SALBADOR TOBAR URGENCY: STATUS: COMPLETED General Internal Medicine Note Has ADDENDA Date/Time of Admission: Nov 16:44 Allergies: LISINOPRIL Remote Allergy/ADR: RART - Remote Allergy/ADR No Remote Allergy/ADR Data available for this pa tient 24 hour events/subjective: N o overnight events. Patient has no pain. Patient had 4-5 small, formed bowel movements yesterday with out straining. Active Inpatient Medications (excluding Supplies ): Active Inpatient Medications Status 1) ACETAMINOPHEN TAB 975MG PO TID ACTIVE 2) ALBUTEROL INHL,ORAL 2 PUFFS INHALATION ORAL Q ID PRN ACTIVE for breathing 3) AMLODIPINE TAB 5MG PO QD please hold if systo lic <90 ACTIVE 4) CARBOXYMETHYLCELLULOSE 0.5% SOLN,OPH ONE DROP OU QID ACTIVE 5) CHOLECALCIFEROL TAB 10MCG PO QD ACTIVE 6) DICLOFENAC 1% GEL,TOP 4 GRAMS TO LOWER EXTREM ITIES ACTIVE TOP QID PRN apply to low back for pain 7) ENOXAPARIN INJ 40MG/0.4ML SQ QD ACTIVE 8) FAMOTIDINE TAB 10MG PO BID ACTIVE 9) LORAZEPAM TAB 0.5MG PO ONCE To be taken prior to MRI ACTIVE 10) LOSARTAN TAB 12.5MG PO QD please hold if sys tolic ACTIVE <90 11) OLODATEROL/TIOTROPIUM INHL,ORAL 2 PUFFS INHA LATION ACTIVE ORAL QD 12) OMEPRAZOLE CAP,EC 20MG PO BID-AC ACTIVE 13) SERTRALINE TAB 150MG PO QD ACTIVE Physical Exam: Vital signs (include range): DATE/TIME TEMP PULSE RESP BP PAIN WEIGHT 12/13/21 @ 0518 0 12/13/21 @ 0514 97.8 75 18 132/81 0 232.9 12/12/21 @ 1943 98.3 95 18 121/74 0 Ins/Outs: Weight: 232.9 lb [105.64 kg] (12/13/2021 05:14) General: NAD, laying in bed Head and Neck: supple neck Respiratory: Lungs sounds im proved in apex of right upper lobe and diminished in right lower lobe, no rhonchi appreciated in left field today. Cardiovascular: irregular rhythm, no MRG, no per ipheral edema Abdomen/GI/: protuberant but nondisten ded, hyperactive bowel sounds,soft and non tender Musculoskeletal:no bony deformities Neurological: EOMI, II-XII grossly intact Psychiatric/Mental Status: appropiate affect Diagnostics Labs: HEMATOLOGY: 12/13/2021 07:12 \ 11.0 / 5.6 ------ 165 / 35.4 \ PMN: 78.7% H LYMPH: 13.1% L MONO: 6.9% EOS: 0.5% BASO: 0.4% BANDS: 0.4% A.7 L MCV: 82.7 RDW: 17.2 H MCH: 25.7 L CHEMISTRY: Dec 13, 2021@07:03 136 105 12 / 102 3.9 24 0.66 \ Gap: 7 eGFR(CKD-EPI 2020): >90.0 Calcium: 8.3 L @ 2021 07:03 Imagin12/10/2021 CT ABD & PELVIS WITHOUT CONTRAST CPT Code: 57720 Interpreting Staff: RADIOLOGY,OUTSIDE Exam Case Number: [id number] Exam Status: COMPLETE Rpt Status: VERIFIED Technologist: ROYAL SOLOMON Reason for Study: 71 yo male with dysphagia ?esophageal anatomy History: No contrast allergy BUN: 8 (12/10/21 08:05) CREATI: 0.78 (12/10/21 08:05) eGFR Last 3 Results Collection DT Spec CREATI e GFR(CK 12/10/2021 08:05 PLASM 0.78 >90.0 12/09/2021 06:00 PLASM 0.70 >9 0.0 12/08/2021 06:00 PLASM 0.76 >90.0 Weight: 233.7 lb [106.00 kg] (12/06/2021 21:43) BODY MASS INDEX - NO HEIGHTS FOUND Pager number: [phone] STAT orders MUST be call ed to RADIOLOGY [phone] to speak to the appropriate septic tank service technician. Report: EXAM: CT abdomen and pelvis without contrast COMPARISON: CT abdomen and pelvis dated 05/01/2016. HISTORY: dysphagia ?esophageal anatomy TECHNIQUE: Contiguous axial images of the abdomen and pelv is were obtained without intravenous contrast. Coronal and sagit emily reformatted images were also obtained. Total number of imag es submitted = [phone]. Total DLP (mGy*cm): 773.80 IV contrast: Not administered FINDINGS: The absence of oral and intravenous contrast li mits the exam. Lung Bases: New incompletely imaged loculated p leural fluid with surrounding pleural thickening in the post erior right base. Trace pericardial fluid. Liver: Mildly enlarged, measuring 21 cm, which has increased since the prior exam. Multilobular gastrohepati c soft tissue, which is new since the prior exam and difficult to separate from the caudate lobe without intravenous contr ast. Biliary: Limited evaluation of the gallbladder due to contraction and streak artifact related to ryan um within adjacent colon. Spleen: Mildly enlarged, measuring 13 cm, [...] of the duodenum. Residual contrast within the colo n. An apparent right hemicolectomy has been performed since th e prior exam. Mild fat stranding adjacent to the hepatic flex ure and liver may represent scarring or nonspecific trace asc ites. No bowel obstruction. Status post midline anterior abdom inal wall hernia repair with mesh placement. Bones: Multilevel degenerative change within th e spine. Unchanged minimal L4-L5 anterolisthesis. No valerie picious bone lesions. Other: Unchanged small fat-containing bilateral inguinal [...] adrenal nodule. Attention to this on the f ollow-up MRI is suggested. 4. Mild hepatosplenomegaly. 5. Shotty nonspecific celiac and portocaval lym ph nodes. READING PHYSICIAN: Ramone Munoz D.O. [phone] 12/10/2021 10:55 EDT [facility] Enerpulseradiology Program [phone] (For Medical Practitioner Use Only ) [address] [facility], [facility] [address], [address] [place] [address] Attention Patients / Veterans: If you have ques tions or concerns about these test results, please conta ct your ordering provider or primary care team. DX Codes: SIGNIFICANT ABNORMALITY, ATTN NEEDED Assessment: 71 year old MALE with a history of Stage IIIa adenocarcinoma EGFR/ALK negative s/p chemotherapy/radiation/d ervalumab, COPD, diverticulitis s/p partial colonic resection, chronic low back pain s/p discectomy here for a 6 month history of 70 pound unintentional weight loss, fatigue, weakne ss, anorexia, odynophagia, myalgias, intermittent diarrhea and gene ral malaise alongside a 10 day history acutely of increased sputum production, SOB, and recent COVID+ here with aspiration pneumonia Patient continues to improve from respiratory pe rspective, now on oral antibiotics for aspiration p neumonia. He completed his course of remdesiver, no longer on active COVID treatment or precautions per ID recommendations. MBS showed significant esophagea l dysfunction with large amount of barium remaining in patient's esophagus. This is concerning for o ngoing risk for aspiration. Have reached out to GI consultants about EGD, planned for Sunday. Per their request, obtained CT abdomen wo contrast first to better characterize GI anatomy prior to the EGD. CT scan review revealed new le ft adrenal mass which will be followed outpatient with PET scan. CT al so revealed multilobular gastrohepatic soft tissue to be evaluated with MRI this week. Per TECHNICAL SUPPORT AGENT recommendations, will also work with ENT consultan ts to assess for vocal chord pathology although this seems less likely to be the underlying cause of his dysphagia and ongoing silent aspiration. Today, patient was noted to have irregular rhythm on exam and will receive ECG for further characterization. In add ition, POCUS exam will be performed to assess pleural fluid levels given p atient's history of thoracentesis and chest tube placement for pneum onia in past admission. Of note, patient's acute presentation is best explained by a silent aspiration event with subsequent development of aspiration pneumonia however, he does require close follow up with his oncologist (dr. Cameron) at discharge due to possible progression of lung adenocarcinoma and new left adrenal mass. Plan: #SOB #aspiration PNA -S/p Ceftriaxone 2 g/day + metronidazole 500 mg IV/PO q 8(12/06 - 12/09) -completed course of Augmentin 875/125 PO BID 7 days -appreciate pulmonology consult -appreciate ID consult -US today to assess pleural fluid levels #COVID+, resolved -Remdesivir 200 mg IV once(12/06) and 100 mg IV q d(12/07-12/09) -Off precautions 12/09 -appreciate ID recs #Difficulty Swallowing/Chronic Silent Aspiration -Appreciate TECHNICAL SUPPORT AGENT consult -CT abdomen wo contrast per GI: small hiatal her rachel with nonspecific distal esophageal wall thickening -EGD tomorrow, appreciate GI consult -Continue PPI -Added H2 raquel (famotidine 10 mg BID) -nutrition consult for diet education -ENT to perform larygoscopy #Irregular heart rhythm -asymptomatic -ECG ordered #Left Adrenal Mass -incidental finding on CT -f/u with nephrology and PET/MRI #Multilobular gastrohepatic sof tissue -incidental finding on CT -MRI today for further investigation -if MRI not tolerated, plan abdominal ultrasound #Chronic Back Pain -start scheduled Tylenol -uses assisted walking device #COPD -home inhaler regimen #HTN -continue home amlodipine and losartan #GERD -omeprazole 20 mg BID -famotidine 10 mg BID #depression -continue home sertraline #other home meds -continue cholecalciferol -continue diclofenac gel VTE prophylaxis: [x] Lovenox 40mg SC daily [ ] Lovenox 30mg SC daily (CrCl <30 but not on HD) [ ] Heparin 5000units SC TID (ESRD or other Soniya enox contraindication) [ ] patient declines VTE pharmacologic prophyla xis despite discussion of VTE risk [ ] Other pharmacologic VTE prophylaxis: [ ] Venodynes applied due to: [ ] pharmacologic prophylaxis contraindicated d ue to: [ ] high risk for VTE due to: /emely/ CURT MCMANUS Resident Physician Signed: 12/13/2021 11:39 /emely/ SALBADOR ORTIZ M.D. Cosigned: 12/13/2021 15:28 12/13/2021 ADDENDUM STATUS: COMPLETED I have seen and examined this [facility] the Resident [facility] Medicine Team on rounds, and agree with eir documentation in bulk, emphasized and amended as follows: Clinically feeling well today. RA, upper 90s. St able right sided dullness to auscultation. MRI abdomen done today, pending read; to my review there are multiple discrete liver masses and appears to be irregularity/thic kening at the level of the distal esophagus/GE junction but this area has l ess resolution. EGD tomorrow; I am hopeful M QUINTEN sets stage for tissue acquisition if appropriate after radiology and GI discussion. Developed asymptomatic MAT today with rates in t he 100-110s, reviewed with cardiology; continue to treat/perform wo rkup and will consider AVN blockade if rates climb, symptoms develop, or does not retur n to sinus. We could consider changing amlodipine to carvedilol or simply cecilio ng metoprolol - BP sare very well controlled here, 120-130s systolic. Rest per resident note. Pager [phone] [facility] medicine /es/ SALBADOR ORTIZ M.D. Signed: 12/13/2021 15:28 Dec 13, 2021 07:22 NURSING NOTE: FRANCINE MILLS CB AM LOCAL TITLE: NURSING PROGRESS OTHER NOTE [facility] STANDARD TITLE: NURSING NOTE DATE OF NOTE: DEC 13, 2021@07:22 ENTRY DATE: DEC 13, 2021@07:22:37 AUTHOR: FRANCINE MILLS CB EXP COSIGNER: URGENCY: STATUS: COMPLETED pt. is sitting up on the edge of the bed workin g on eating breakfast. pt. is ind. with feeding himself /emely/ FRANCINE MILLS Staff Nurse Signed: 12/13/2021 07:23 Dec 13, 2021 06:11 NURSING INPATIENT NOTE: FRANCINE MILLS CB [place] AM LOCAL TITLE: [facility] NURSING FREQUENT DOCUMENTATI ON [facility] STANDARD TITLE: NURSING INPATIENT NOTE DATE OF NOTE: DEC 13, 2021@06:11 ENTRY DATE: DEC 13, 2021@06:11:34 AUTHOR: FRANCINE MILLS CB EXP COSIGNER: URGENCY: STATUS: COMPLETED Version 2.4 Charting in accordance with ME APPROVED ENTERPRI SE STANDARD (MEAES) ACUTE INPATIENT/REHABILITATION [facility] ADMISSION SCREENING, ASSESSMENT, AND STANDARDS OF CARE ENVIRONMENTAL SAFETY MANAGEMENT Implemented safety standards of care: -[place] to unit & environment -Adequate room lighting -Bed in low and locked position -Call light within reach -Personal items within reach -Traffic path in room free of clutter -Non-slip footwear -Upper/half length side rails up for bed mobili ty -Sensory aids within reach -Encourage patient to utilize sensory support visual check, pt. is laying in bed watching thin gs on his tablet. pt. with no needs at this time /es/ FRANCINE MILLS Staff Nurse Signed: 12/13/2021 06:12 Dec 13, 2021 05:17 NURSING NOTE: FRANCINE MILLS CB [place] AM LOCAL TITLE: MEAES NSG IV INSERTION AND MAINTEN ANCE [facility] STANDARD TITLE: NURSING NOTE DATE OF NOTE: DEC 13, 2021@05:17 ENTRY DATE: DEC 13, 2021@05:17:15 AUTHOR: FRANCINE MILLS CB EXP COSIGNER: URGENCY: STATUS: COMPLETED Version 2.2 Charting in accordance with ME APPROVED ENTERPRI SE STANDARD (MEAES) ACUTE INPATIENT/REHABILITATION KENDRICK SING ADMISSION SCREENING, ASSESSMENT, AND STANDARDS OF CARE IV Line Insertion and Maintenance Peripheral IV Line #1: Assessment: Location: Left, Forearm Gauge: 20 Dressing Condition: Clean, dry, intact Transparent dressing Site Condition: No redness, swelling, pain Line Status: Ulises /emely/ FRANCINE MILLS Staff Nurse Signed: 12/13/2021 05:17 Dec 13, 2021 05:17 NURSING INPATIENT NOTE: FRANCINE MILLS [place] AM LOCAL TITLE: [facility] NURSING FREQUENT DOCUMENTATI ON [facility] STANDARD TITLE: NURSING INPATIENT NOTE DATE OF NOTE: DEC 13, 2021@05:17 ENTRY DATE: DEC 13, 2021@05:17:37 AUTHOR: FRANCINE MILLS CB EXP COSIGNER: URGENCY: STATUS: COMPLETED Version 2.4 Charting in accordance with [facility] ENTERPRI SE STANDARD (MEAES) ACUTE INPATIENT/REHABILITATION NURSING ADMISSION SCREE JEROME, ASSESSMENT, AND STANDARDS OF CARE ACTIVITIES OF DAILY LIVING Hygiene ADLs: Toileting: Independent ACTIVITY/MOBILIZATION Mobility Status: Independent: Able to stand and step without staff assistance Steady standing balance Gait: Steady [facility] - Highest Level of Mobility achie segundo this shift: 6 - Walked 10 steps or more (walked to restroom ) DETAILED REPOSITIONING Time and Position: Tolerance of Position: Comment: pt. up to the s tanding scale then back to bed ENVIRONMENTAL SAFETY MANAGEMENT Implemented safety standards of care: -[place] to unit & environment -Adequate room lighting -Bed in low and locked position -Call light within reach -Personal items within reach -Traffic path in room free of clutter -Non-slip footwear -Upper/half length side rails up for bed mobili ty -Sensory aids within reach -Encourage patient to utilize sensory support GENITOURINARY Elimination: Continent ORAL INTAKE (PERCENTAGE OF MEAL EATEN) Snacks: % Consumed/Comment: fresh fluids at bedside Pain DVPRS Scale Location: [facility] Pain Rating Scale (DVPRS): Pain Score: 0 Patient's acceptable pain goal: Pain Alleviating Interventions: /emely/ FRANCINE MILLS Staff Nurse Signed: 12/13/2021 05:18 Dec 13, 2021 05:16 NURSING INPATIENT NOTE: FRANCINE MILLS CB [place] LOCAL TITLE: VAAES ACUTE INPATIENT NSG SHIFT SESSMENT [facility] STANDARD TITLE: NURSING INPATIENT NOTE DATE OF NOTE: DEC 13, 2021@05:16 ENTRY DATE: DEC 13, 2021@05:16:08 AUTHOR: FRANCINE MILLS CB EXP COSIGNER: URGENCY: STATUS: COMPLETED Version 2.2 Charting in accordance with ME APPROVED ENTERPRI SE STANDARD (VAAES) ACUTE INPATIENT/REHABILITATION KENDRICK SING ADMISSION SCREENING, ASSESSMENT, AND STANDARDS OF CARE REASSESSMENT NEUROLOGICAL Neurological Orientation: Oriented x4 Level of Consciousness (AVPU): Alert = Appears aware of and responsive to the environment on their own. Follows commands, open eyes spontaneously, and tract objects. Affect/behavior: Cooperative Calm NEUROMUSCULAR/NEUROVASCULAR EXTREMITIES ASSESSM ENT Strength: Nursing Clinical Director Bilateral: Strong Upper Extremity Bilateral: Full strength Lower Extremity Bilateral: Full strength Sensation: Upper Extremity Sensation Bilateral: Intact Lower Extremity Sensation Bilateral: Decreased Temperature: Upper Extremity Temperature Bilateral: Warm Lower Extremity Temperature Bilateral: Warm RESPIRATORY Respirations: Unlabored Pattern: Regular Breath Sounds Auscultated: Anterior and posterior Right Upper Lobe: Clear Left Upper Lobe: Clear Right Middle Lobe: Clear, Diminished Right Lower Lobe: Clear, Diminished Left Lower Lobe: Clear, Diminished GASTROINTESTINAL Palpation: Soft, Non-tender Bowel Sounds: RUQ: Active LUQ: Active RLQ: Active LLQ: Active GENITOURINARY Elimination: Continent /es/ FRANCINE MILLS Staff Nurse Signed: 12/13/2021 05:17 Dec 13, 2021 03:42 NURSING INPATIENT NOTE: FRANCINE MILLS CB [place] AM LOCAL TITLE: VAAES NURSING FREQUENT DOCUMENTATI ON [facility] STANDARD TITLE: NURSING INPATIENT NOTE DATE OF NOTE: DEC 13, 2021@03:42 ENTRY DATE: DEC 13, 2021@03:42:04 AUTHOR: FRANCINE MILLS CB EXP COSIGNER: URGENCY: STATUS: COMPLETED Version 2.4 Charting in accordance with ME APPROVED ENTERPRI SE STANDARD (VAAES) ACUTE INPATIENT/REHABILITATION K[facility]ICK SING ADMISSION SCREENING, ASSESSMENT, AND STANDARDS OF CARE ENVIRONMENTAL SAFETY MANAGEMENT Implemented safety standards of care: -[place] to unit & environment -Adequate room lighting -Bed in low and locked position -Call light within reach -Personal items within reach -Traffic path in room free of clutter -Non-slip footwear -Upper/half length side rails up for bed mobili ty -Sensory aids within reach -Encourage patient to utilize sensory support visual check, pt. is resting quietly in bed with his eyes closed /emely/ FRANCINE MILLS Staff Nurse Signed: 12/13/2021 03:42 Dec 13, 2021 01:53 NURSING INPATIENT NOTE: FRANCINE MILLS CB [facility] TITLE: [facility] NURSING FREQUENT DOCUMENTATI ON [facility] STANDARD TITLE: NURSING INPATIENT NOTE DATE OF NOTE: DEC 13, 2021@01:53 ENTRY DATE: DEC 13, 2021@01:53:08 AUTHOR: FRANCINE MILLS CB EXP COSIGNER: URGENCY: STATUS: COMPLETED Version 2.4 Charting in accordance with ME APPROVED ENTERPRI SE STANDARD (VAAES) ACUTE INPATIENT/REHABILITATION KENDRICK SING ADMISSION SCREENING, ASSESSMENT, AND STANDARDS OF CARE ENVIRONMENTAL SAFETY MANAGEMENT Implemented safety standards of care: -[place] to unit & environment -Adequate room lighting -Bed in low and locked position -Call light within reach -Personal items within reach -Traffic path in room free of clutter -Non-slip footwear -Upper/half length side rails up for bed mobili ty -Sensory aids within reach -Encourage patient to utilize sensory support visual check, pt. is resting quietly in bed with his eyes closed /charmaine MILLS Staff Nurse Signed: 12/13/2021 01:53 Dec 13, 2021 12:41 NURSING INPATIENT NOTE: FRANCINE MILLS CB [facility] TITLE: [facility] NURSING FREQUENT DOCUMENTATI ON [facility] STANDARD TITLE: NURSING INPATIENT NOTE DATE OF NOTE: DEC 13, 2021@00:41 ENTRY DATE: DEC 13, 2021@00:41:29 AUTHOR: FRANCINE MILLS CB EXP COSIGNER: URGENCY: STATUS: COMPLETED Version 2.4 Charting in accordance with ME APPROVED ENTERPRI SE STANDARD ([facility]) ACUTE INPATIENT/REHABILITATION KENDRICK SING ADMISSION SCREENING, ASSESSMENT, AND STANDARDS OF CARE ENVIRONMENTAL SAFETY MANAGEMENT Implemented safety standards of care: -[place] to unit & environment -Adequate room lighting -Bed in low and locked position -Call light within reach -Personal items within reach -Traffic path in room free of clutter -Non-slip footwear -Upper/half length side rails up for bed mobili ty -Sensory aids within reach -Encourage patient to utilize sensory support visual check, pt. is resting quietly in bed with his eyes closed /emely/ FRANCINE MILLS Staff Nurse Signed: 12/13/2021 00:41 Dec 12, 2021 11:37 NURSING INPATIENT NOTE: FRANCINE MILLS CB [place] PM LOCAL TITLE: VAAES NURSING FREQUENT DOCUMENTATI ON [facility] STANDARD TITLE: NURSING INPATIENT NOTE DATE OF NOTE: DEC 12, 2021@23:37 ENTRY DATE: DEC 12, 2021@23:37:34 AUTHOR: FRANCINE MILLS CB EXP COSIGNER: URGENCY: STATUS: COMPLETED Version 2.4 Charting in accordance with ME APPROVED ENTERPRI SE STANDARD (VAAES) ACUTE INPATIENT/REHABILITATION KENDRICK SING ADMISSION SCREENING, ASSESSMENT, AND STANDARDS OF CARE ENVIRONMENTAL SAFETY MANAGEMENT Implemented safety standards of care: -[place] to unit & environment -Adequate room lighting -Bed in low and locked position -Call light within reach -Personal items within reach -Traffic path in room free of clutter -Non-slip footwear -Upper/half length side rails up for bed mobili ty -Sensory aids within reach -Encourage patient to utilize sensory support visual check, pt. is resting quietly in bed with his eyes closed /emely/ FRANCINE MILLS Staff Nurse Signed: 12/12/2021 23:37 Dec 12, 2021 09:40 NURSING INPATIENT NOTE: FRANCINE MILLS CB [place] PM LOCAL TITLE: VAAES NURSING FREQUENT DOCUMENTATI ON [facility] STANDARD TITLE: NURSING INPATIENT NOTE DATE OF NOTE: DEC 12, 2021@21:40 ENTRY DATE: DEC 12, 2021@21:41:02 AUTHOR: FRANCINE MILLS CB EXP COSIGNER: URGENCY: STATUS: COMPLETED Version 2.4 Charting in accordance with ME APPROVED ENTERPRI SE STANDARD (VAAES) ACUTE INPATIENT/REHABILITATION KENDRICK SING ADMISSION SCREENING, ASSESSMENT, AND STANDARDS OF CARE ENVIRONMENTAL SAFETY MANAGEMENT Implemented safety standards of care: -[place] to unit & environment -Adequate room lighting -Bed in low and locked position -Call light within reach -Personal items within reach -Traffic path in room free of clutter -Non-slip footwear -Upper/half length side rails up for bed mobili ty -Sensory aids within reach -Encourage patient to utilize sensory support visual check, pt. is resting in bed watching programs on his tablet. pt. with no needs at this time /emely/ FRANCINE MILLS Staff Nurse Signed: 12/12/2021 21:41 Dec 12, 2021 07:44 NURSING NOTE: FRANCINE MILLS CB [place] PM LOCAL TITLE: [facility] NSG IV INSERTION AND [facility] STANDARD TITLE: NURSING NOTE DATE OF NOTE: DEC 12, 2021@19:44 ENTRY DATE: DEC 12, 2021@19:45:02 AUTHOR: FRANCINE MILLS CB EXP COSIGNER: URGENCY: STATUS: COMPLETED Version 2.2 Charting in accordance with ME APPROVED ENTERPRI SE STANDARD (MEAES) ACUTE INPATIENT/REHABILITATION KENDRICK SING ADMISSION SCREENING, ASSESSMENT, AND STANDARDS OF CARE IV Line Insertion and Maintenance Peripheral IV Line #1: Assessment: Location: Left, Forearm Gauge: 20 Dressing Condition: Clean, dry, intact Transparent dressing Site Condition: No redness, swelling, pain Line Status: Capped Flushed No blood return /es/ FRANCINE MILLS Staff Nurse Signed: 12/12/2021 19:45 Dec 12, 2021 07:39 NURSING INPATIENT NOTE: FRANCINE MILLS CB [place] LOCAL TITLE: VAAES [facility] T[facility]: NURSING INPATIENT NOTE DATE OF NOTE: DEC 12, 2021@19:39 ENTRY DATE: DEC 12, 2021@19:39:49 AUTHOR: FRANCINE MILLS CB EXP COSIGNER: URGENCY: STATUS: COMPLETED Version 2.2 Charting in accordance with ME APPROVED ENTERPRI SE STANDARD (VAAES) ACUTE INPATIENT/REHABILITATION NURSING ADMISSION SCREE JEROME, ASSESSMENT, AND STANDARDS OF CARE ASSESSMENT CHAVEZ FALL SCALE & TIPS PROGRAM Chavez Fall Scale: The Chavez Fall scale was performed and score wa s 35. This is indicative of moderate risk for falls. History of falling in past 3 months? No Secondary diagnosis: Yes Ambulatory aid: None/bedrest/nurse assist Intravenous therapy/Heparin lock: Yes Gait/Transferring: Normal/bed rest/immobile Mental Status: Oriented to own ability/knows own limitations Fall Tailoring Interventions for Patient Safety (TIPS) Fall TIPS initiated with patient: Yes Fall TIPS reviewed with patient: Yes NEUROLOGICAL Neurological Orientation: Oriented x4 Level of Consciousness (AVPU): Alert = Appears aware of and responsive to the environment on their own. Follows commands, open eyes spontaneously, and tract objects. Affect/behavior: Cooperative Calm NEUROMUSCULAR/NEUROVASCULAR EXTREMITIES ASSESSM ENT Strength: Nursing Clinical Director Bilateral: Strong Upper Extremity Bilateral: Full strength Lower Extremity Bilateral: Full strength Sensation: Upper Extremity Sensation Bilateral: Intact Lower Extremity Sensation Bilateral: Decreased Temperature: Upper Extremity Temperature Bilateral: Warm Lower Extremity Temperature Bilateral: Warm RESPIRATORY Respirations: Unlabored Pattern: Regular Breath Sounds Auscultated: Anterior and posterior Right Upper Lobe: Clear Left Upper Lobe: Clear Right Middle Lobe: Clear, Diminished Right Lower Lobe: Clear, Diminished Left Lower Lobe: Clear, Diminished GASTROINTESTINAL Palpation: Soft, Non-tender Bowel Sounds: RUQ: Active LUQ: Active RLQ: Active LLQ: Active GENITOURINARY Elimination: Continent INTEGUMENTARY/SKIN/WOUND - (INCLUDING NATE) SEE NOTE: VAAES SKIN INPECTION/ASSESSMENT PSYCHOSOCIAL Type of Emotional Support Provided: 1:1 discussion, Coping skills discussion, Hospi talization discussion, Ventilation of feelings imelda /emely/ FRANCINE MILLS Staff Nurse Signed: 12/12/2021 19:40 Dec 12, 2021 07:38 NURSING NOTE: FRANCINE MILLS CB [facility] LOCAL TITLE: VAAES SKIN INSPECTION/ASSESSMENT [facility] STANDARD TITLE: NURSING NOTE DATE OF NOTE: DEC 12, 2021@19:38 ENTRY DATE: DEC 12, 2021@19:38:20 AUTHOR: FRANCINE MILLS CB EXP COSIGNER: URGENCY: STATUS: COMPLETED SKIN REINSPECTION/REASSESSMENT SKIN INSPECTION: Skin Color: Usual for ethnicity Skin Temperature: Warm Skin Moisture: Normal Skin Turgor: Elastic (normal/immediate) Nate Skin Assessment: The patient's Nate Scale Score is 20. The pat ient is considered not at risk for development of pressure ulcers/injurie s. Sensory perception -- ability to respond meanin gfully to pressure-related discomfort No impairment. Moisture -- degree to which skin is exposed to moisture Rarely moist. Activity -- ability to change and control body position Walks occasionally. Mobility -- ability to change and control body position Slightly limited. Nutrition -- usual food intake patterns Adequate. Friction and shear No apparent problem. INTERVENTIONS: The pressure injury interventions were not need ed - patient/resident is not at risk. Localized abnormality: Bruising: Location(s): scattered BUE Other: Location(s): midline incisional scar /es/ FRANCINE MILLS Staff Nurse Signed: 12/12/2021 19:38 Dec 12, 2021 07:36 NURSING INPATIENT NOTE: FRANCINE MILLS CB [place] PM LOCAL TITLE: [facility] NURSING FREQUENT DOCUMENTATI ON [facility] STANDARD TITLE: NURSING INPATIENT NOTE DATE OF NOTE: DEC 12, 2021@19:36 ENTRY DATE: DEC 12, 2021@19:36:42 AUTHOR: FRANCINE MILLS CB EXP COSIGNER: URGENCY: STATUS: COMPLETED Version 2.4 Charting in accordance with ME APPROVED ENTERPRI SE STANDARD ([facility]) ACUTE INPATIENT/REHABILITATION NURSING ADMISSION SCREE JEROME, ASSESSMENT, AND STANDARDS OF CARE ACTIVITIES OF DAILY LIVING Hygiene ADLs: Eating: Independent Foot Care: Inspection Oral Care: Non-ventilator patient: Patient teeth brushed: Patient declined pt. declined The was educated that poor oral hygiene increases the risk of hospital acquired pneumonia and dental problems like gingivitis and tooth decay. was educated using their preferr ed method and verbalized understanding. Toileting: Independent ACTIVITY/MOBILIZATION Mobility Status: Independent: Able to stand and step without staff assistance Steady standing balance Gait: Steady Cain Kyle - Highest Level of Mobility achie segundo this shift: 6 - Walked 10 steps or more (walked to restroom ) BRIEF CONFUSION ASSESSMENT METHOD - bCAM Feature 1: Mental Status Change: No change from baseline (bCam negative, no delirium) Feature 2: Inattention Exam Errors: Feature 3: Altered level of Consciousness: Feature 4: Disorganized thinking: bCAM Result: Final Result Negative DETAILED REPOSITIONING Time and Position: Tolerance of Position: Comment: pt. is ind. wit h position changes ENVIRONMENTAL SAFETY MANAGEMENT Implemented safety standards of care: -[place] to unit & environment -Adequate room lighting -Bed in low and locked position -Call light within reach -Personal items within reach -Traffic path in room free of clutter -Non-slip footwear -Upper/half length side rails up for bed mobili ty -Sensory aids within reach -Encourage patient to utilize sensory support GENITOURINARY Elimination: Continent ORAL INTAKE (PERCENTAGE OF MEAL EATEN) Snacks: % Consumed/Comment: fresh fluids at bedside and HS snack provided Pain DVPRS Scale Location: [facility] Pain Rating Scale (DVPRS): Pain Score: 0 Patient's acceptable pain goal: Pain Alleviating Interventions: /emely/ FRANCINE MILLS Staff Nurse Signed: 12/12/2021 19:38 Dec 12, 2021 07:34 NURSING NOTE: FRANCINE MILLS [place] LOCAL TITLE: NURSING PROGRESS OTHER NOTE [facility] STANDARD TITLE: NURSING NOTE DATE OF NOTE: DEC 12, 2021@19:34 ENTRY DATE: DEC 12, 2021@19:34:19 AUTHOR: FRANCINE MILLS CB EXP COSIGNER: URGENCY: STATUS: COMPLETED Masimo/Safety Net YES - Applied site finger /emely/ FRANCINE MILLS Staff Nurse Signed: 12/12/2021 19:34 Dec 12, 2021 05:36 NURSING INPATIENT NOTE: BETH BOLTON [place] PM LOCAL TITLE: VAAES NURSING FREQUENT DOCUMENTATI ON [facility] STANDARD TITLE: NURSING INPATIENT NOTE DATE OF NOTE: DEC 12, 2021@17:36 ENTRY DATE: DEC 12, 2021@17:37:03 AUTHOR: BETH BOLTON EXP COSIGNER: URGENCY: STATUS: COMPLETED Version 2.4 Charting in accordance with [facility] ENTERPRI SE STANDARD (MEAES) ACUTE INPATIENT/REHABILITATION KENDRICK SING ADMISSION SCREENING, ASSESSMENT, AND STANDARDS OF CARE ENVIRONMENTAL SAFETY MANAGEMENT Implemented safety standards of care: -[place] to unit & environment -Adequate room lighting -Bed in low and locked position -Call light within reach -Personal items within reach -Traffic path in room free of clutter -Non-slip footwear -Upper/half length side rails up for bed mobili ty -Sensory aids within reach -Encourage patient to utilize sensory support ORAL INTAKE (PERCENTAGE OF MEAL EATEN) Dinner: 51% - 75% /es/ BETH BOLTON Registered Nurse Signed: 12/12/2021 17:37 Receipt Acknowledged By: 12/12/2021 17:41 /es/ RADHA CUBA REGISTERED NURSE Dec 12, 2021 04:16 INTERNAL MEDICINE NOTE: ASHLY TODD T PM LOCAL TITLE: General Internal Medicine Note [facility] STANDARD TITLE: INTERNAL MEDICINE NOTE DATE OF NOTE: DEC 12, 2021@16:16 ENTRY DATE: DEC 12, 2021@16:17:10 AUTHOR: ASHLY TODD EXP COSIGNER: SALBADOR ORTIZ URGENCY: STATUS: COMPLETED Date/Time of Admission: Nov 16:44 Allergies: LISINOPRIL Remote Allergy/ADR: RART - Remote Allergy/ADR No Remote Allergy/ADR Data available for this pa tient 24 hour events/subjective: No overnight events. Last bowel movement was thi s morning, loose and consistent with other recent bowel movements. Back pain is improved with Tylenol. He is mobile with assisted device but only ambulates to the restroom. Active Inpatient Medications (excluding Supplies ): Active Inpatient Medications Status 1) ACETAMINOPHEN TAB 975MG PO TID ACTIVE 2) ALBUTEROL INHL,ORAL 2 PUFFS INHALATION ORAL Q ID PRN ACTIVE for breathing 3) AMLODIPINE TAB 5MG PO QD please hold if systo lic <90 ACTIVE 4) AMOXICILLIN/CLAVULANATE TAB 1 TABLET PO BID P ills ACTIVE can be crushed into applesauce or substance of similar consistency. stop date 12/12 PM. 5) CARBOXYMETHYLCELLULOSE 0.5% SOLN,OPH ONE DROP OU QID ACTIVE 6) CHOLECALCIFEROL TAB 10MCG PO QD ACTIVE 7) DICLOFENAC 1% GEL,TOP 4 GRAMS TO LOWER EXTREM ITIES ACTIVE TOP QID PRN apply to low back for pain 8) ENOXAPARIN INJ 40MG/0.4ML SQ QD ACTIVE 9) FAMOTIDINE TAB 10MG PO BID ACTIVE 10) LORAZEPAM TAB 0.5MG PO ONCE To be taken prio r to MRI ACTIVE 11) LOSARTAN TAB 12.5MG PO QD please hold if sys tolic ACTIVE <90 12) OLODATEROL/TIOTROPIUM INHL,ORAL 2 PUFFS INHA LATION ACTIVE ORAL QD 13) OMEPRAZOLE CAP,EC 20MG PO BID-AC ACTIVE 14) SERTRALINE TAB 150MG PO QD ACTIVE Physical Exam: Vital signs (include range): DATE/TIME TEMP PULSE RESP BP PAIN WEIGHT 12/12/21 @ 1417 0 12/12/21 @ 1401 98 82 18 127/76 12/12/21 @ 1059 0 Ins/Outs: Weight: 232.2 lb [105.32 kg] (12/12/2021 05:00) General: NAD, laying in bed Head and Neck: supple neck Respiratory: Lungs sounds improved in apex of ri ght upper lobe and absent in right lower lobe, no rhonchi appreciated in left field today. Cardiovascular: RRR, no MRG Abdomen/GI/: protuberant but nondisten ded, hyperactive bowel sounds,soft and non tender Musculoskeletal:no bony deformities Neurological: EOMI, II-XII grossly intact Psychiatric/Mental Status: appropiate affect Diagnostics Labs: HEMATOLOGY: 12/12/2021 06:33 12/11/2021 06:26 12/10/2021 08:05 \ 11.1 / \ 11.2 / \ 11.6 / 5.5 ------ 165 5.8 ------ 149 7.0 ------ 164 / 36.4 \ / 37.7 \ / 37.5 \ PMN: 78.9% H LYMPH: 12.2% L MONO: 7.5% EOS: 0.7% BASO: 0.2% BANDS: 0.5% A.7 L MCV: 83.3 RDW: 17.0 H MCHC: 30.5 L MCH: 25.4 L RETICULOCYTES (%) AUTOMATED: 1.23 RETABS: 0.052 @ 12/07/2021 06:00 CHEMISTRY: Dec 12, 2021@06:52 Dec 11, 2021@06:43 139 107 11 / 137 108 / 110 - 4.1 24 0.70 \ Gap: 12` 4.3 20 \ Gap : 13` ` - corrected for albumin Phos: 3.1 Ma.8 @ 12/12/2021 06:00 eGFR(CKD-EPI 2020): >90.0 Calcium: 8.3 L @ 2021 06:52 Corrected Calcium: 9.6 (alb 2.4 on Dec 07, 2021) @ 12/12/2021 06:52 Protein: 5.7 L Albumin: 2.4 L ALK: 109 ALT: 10 @ 12/07/2021 07:15 AST: 15 FIB-4 SCORE: 1.92 TBil: 0.4 @ 12/07/2021 07:15 BNP(P): 224.8 H TROPONIN II: 0.03 @ 12/06/2021 12 :00 URINE STUDIES: UA: Arlin/n/a LE n/a Protein 5 Ketones <2.0 Urob moe otherwise bland @ 12/06/2021 18:00 CLARITY: HAZY URINE PH: 5.0 PROTEIN, URINE: 30 @ 12/06/2021 18:00 WBC SCREEN: Neg RED BLOOD CELL/URINE: <1 @ 2021 18:00 WHITE BLOOD CELL/URINE: 3 HYALINE CAST: 5 H @ 18:00 MUCOUS/URINE: MANY @ 12/06/2021 18:00 OTHER: MRSA DNA (NARES): Neg @ 12/06/2021 21:45 COVID-19 AG SCRN(wrj BINAX)POSITIVE H* (NASAL CA VITY): Ref: @ 12/06/2021 12:00 FLU A(PCR) (NASOPHARYNX): Neg @ 12/06/2021 12:00 FLU B(PCR) (NASOPHARYNX): Neg @ 12/06/2021 12:00 RSV(PCR) (NASOPHARYNX): Neg @ 12/06/2021 12:00 COVID-19(VPD-[id number]-[id number])DETECTED H* (NASOPHAR YNX): Ref: @ 12/06/2021 12:00 Imagin12/10/2021 CT ABD & PELVIS WITHOUT CONTRAST CPT Code: 47612 Interpreting Staff: RADIOLOGY,OUTSIDE Exam Case Number: [id number] Exam Status: COMPLETE Rpt Status: VERIFIED Technologist: ROYAL SOLOMON Reason for Study: 71 yo male with dysphagia ?esophageal anatomy History: No contrast allergy BUN: 8 (12/10/21 08:05) CREATI: 0.78 (12/10/21 08:05) eGFR Last 3 Results Collection DT Spec CREATI e GFR(CK 12/10/2021 08:05 PLASM 0.78 >90.0 12/09/2021 06:00 PLASM 0.70 >9 0.0 12/08/2021 06:00 PLASM 0.76 >90.0 Weight: 233.7 lb [106.00 kg] (12/06/2021 21:43) BODY MASS INDEX - NO HEIGHTS FOUND Pager number: [phone] STAT orders MUST be call ed to RADIOLOGY [phone] to speak to the appropriate septic tank service technician. Report: EXAM: CT abdomen and pelvis without contrast COMPARISON: CT abdomen and pelvis dated 05/01/2016. HISTORY: dysphagia ?esophageal anatomy TECHNIQUE: Contiguous axial images of the abdomen and pelv is were obtained without intravenous contrast. Coronal and sagit emily reformatted images were also obtained. Total number of imag es submitted = [id number]. Total DLP (mGy*cm): 773.80 IV contrast: Not administered FINDINGS: The absence of oral and intravenous contrast li mits the exam. Lung Bases: New incompletely imaged loculated p leural fluid with surrounding pleural thickening in the post erior right base. Trace pericardial fluid. Liver: Mildly enlarged, measuring 21 cm, which has increased since the prior exam. Multilobular gastrohepati c soft tissue, which is new since the prior exam and difficult to separate from the caudate lobe without intravenous contr ast. Biliary: Limited evaluation of the gallbladder due to contraction and streak artifact related to ryan um within adjacent colon. Spleen: Mildly enlarged, measuring 13 cm, [...] of the duodenum. Residual contrast within the colo n. An apparent right hemicolectomy has been performed since e prior exam. Mild fat stranding adjacent to the hepatic flex ure and liver may represent scarring or nonspecific trace asc ites. No bowel obstruction. Status post midline anterior abdom inal wall hernia repair with mesh placement. Bones: Multilevel degenerative change within e spine. Unchanged minimal L4-L5 anterolisthesis. No valerie picious bone lesions. Other: Unchanged small fat-containing bilateral inguinal [...] adrenal nodule. Attention to this on the f ollow-up MRI is suggested. 4. Mild hepatosplenomegaly. 5. Shotty nonspecific celiac and portocaval lym ph nodes. READING PHYSICIAN: Ramone Munoz D.O. [phone] 12/10/2021 10:55 EDT [facility] Enerpulseradiology Program [phone] (For Medical Practitioner Use Only ) [address], [facility] [address], [address] [place] [address] Attention Patients / Veterans: If you have ques tions or concerns about these test results, please conta ct your ordering provider or primary care team. DX Codes: SIGNIFICANT ABNORMALITY, ATTN NEEDED EKG: Assessment: 71 year old MALE with a history of Stage IIIa adenocarcinoma EGFR/ALK negative s/p chemotherapy/radiation/d ervalumab, COPD, diverticulitis s/p partial colonic resection, chronic low back pain s/p discectomy here for a 6 month history of 70 pound unintentional weight loss, fatigue, weakne ss, anorexia, odynophagia, myalgias, intermittent diarrhea and gene ral malaise alongside a 10 day history acutely of increased sputum production, SOB, and recent COVID+ here with aspiration pneumonia Patient continues to improve from respiratory pe rspective, now on oral antibiotics for aspiration p neumonia. He completed his course of remdesiver, no longer on active COVID treatment or precautions per ID recommendations. MBS showed significant esophagea l dysfunction with large amount of barium remaining in patient's esophagus. This is concerning for o ngoing risk for aspiration. Have reached out to GI consultants about EGD, planned for Sunday. Per their request, obtained CT abdomen wo contrast first to better characterize GI anatomy prior to the EGD. CT scan review revealed new le ft adrenal mass which will be followed outpatient with PET scan. CT al so revealed multilobular gastrohepatic soft tissue to be evaluated with MRI this week. Per TECHNICAL SUPPORT AGENT recommendations, will also work with ENT consultan ts to assess for vocal chord pathology although this seems less likely to be the underlying cause of his dysphagia and ongoing silent aspiration. Of note, patient's acute presentation is best explained by a silent aspiration event with subsequent development of aspiration pneumonia however, he does require close follow up with his oncologist (dr. Cameron) at discharge due to possible progression of lung adenocarcinoma and new left adrenal mass. Plan: #SOB #aspiration PNA -S/p Ceftriaxone 2 g/day + metronidazole 500 mg IV/PO q 8(12/06 - 12/09) -Continue Augmentin 875/125 PO BID until 12/12 to complete 7 day course -appreciate pulmonology consult -appreciate ID consult #COVID+, resolved -Remdesivir 200 mg IV once(12/06) and 100 mg IV q d(12/07-12/09) -Off precautions 12/09 -appreciate ID recs #Difficulty Swallowing/Chronic Silent Aspiration -Appreciate TECHNICAL SUPPORT AGENT consult -CT abdomen wo contrast per GI: small hiatal her rachel with nonspecific distal esophageal wall thickening, multilobular gastroh epatic soft tissue -EGD this week, appreciate GI consult -Continue PPI -Added H2 raquel (famotidine 10 mg BID) -nutrition consult for diet education #Chronic Back Pain -start scheduled Tylenol -uses assisted walking device #Left Adrenal Mass -incidental finding on CT -f/u with nephrology and PET/MRI #Multilobular gastrohepatic sof tissue -incidental finding on CT -MRI this week for further investigation -if MRI not tolerated, plan abdominal ultrasound #COPD -home inhaler regimen #HTN -continue home amlodipine and losartan #GERD -omeprazole 20 mg BID -famotidine 10 mg BID #depression -continue home sertraline #other home meds -continue cholecalciferol -continue diclofenac gel VTE prophylaxis: [X] Lovenox 40mg SC daily [ ] Lovenox 30mg SC daily (CrCl <30 but not on HD) [ ] Heparin 5000units SC TID (ESRD or other Soniya enox contraindication) [ ] patient declines VTE pharmacologic prophyla xis despite discussion of VTE risk [ ] Other pharmacologic VTE prophylaxis: [ ] Venodynes applied due to: [ ] pharmacologic prophylaxis contraindicated d ue to: [ ] high risk for VTE due to: /emely/ ASHLY TODD Resident Physician Signed: 12/12/2021 16:27 /charmaine ORTIZ M.D. Cosigned: 12/12/2021 20:22 Dec 12, 2021 04:14 NURSING NOTE: BETH BOLTON [place] PM LOCAL TITLE: VAAES NSG IV INSERTION AND MAINJEROME LINDE [facility] STANDARD TITLE: NURSING NOTE DATE OF NOTE: DEC 12, 2021@16:14 ENTRY DATE: DEC 12, 2021@16:14:49 AUTHOR: BETH BOLTON EXP COSIGNER: URGENCY: STATUS: COMPLETED Version 2.2 Charting in accordance with ME APPROVED ENTERPRI SE STANDARD (MEAES) ACUTE INPATIENT/REHABILITATION KENDRICK SING ADMISSION SCREENING, ASSESSMENT, AND STANDARDS OF CARE IV Line Insertion and Maintenance Peripheral IV Line #1: Assessment: Location: Left, Antecubital Gauge: 20 Dressing Condition: Clean, dry, intact Site Condition: No redness, swelling, pain Line Status: Capped Flushed /emely/ BETH BOLTON Registered Nurse Signed: 12/12/2021 16:15 Receipt Acknowledged By: 12/12/2021 16:19 /emely/ RADHA CUBA REGISTERED NURSE Dec 12, 2021 03:24 GASTROENTEROLOGY TELEPHONE ENCOUNTER NOTE: MARY BANDA T PM LOCAL TITLE: Gastroenterology Telephone Note JOVI CALLOWAY [facility] STANDARD TITLE: GASTROENTEROLOGY TELEPHONE ENCOU NTER NOTE DATE OF NOTE: DEC 12, 2021@15:24 ENTRY DATE: DEC 12, 2021@15:24:20 AUTHOR: MARY CARTER COSIGNER: URGENCY: STATUS: COMPLETED Gastroenterology Telephone Note Has ADDENDA Called pt to review prep for EGD Sunday. LM on UI VM to return call to GI at ext [phone]. /emely/ MARY CARTER Registered Nurse Signed: 12/12/2021 15:25 12/13/2021 ADDENDUM STATUS: COMPLETED Unaware pt. was inpatient. Called floor to revie w NPO and notify of estimated time for EGD with anesthesia Sunday. /emely/ MARY CARTER Registered Nurse Signed: 12/13/2021 08:20 Dec 12, 2021 02:23 NURSING INPATIENT NOTE: BETH BOLTON [place] LOCAL TITLE: [facility] NURSING FREQUENT DOCUMENTATI ON [facility] STANDARD TITLE: NURSING INPATIENT NOTE DATE OF NOTE: DEC 12, 2021@14:23 ENTRY DATE: DEC 12, 2021@14:23:55 AUTHOR: BETH BOLTON EXP COSIGNER: URGENCY: STATUS: COMPLETED Version 2.4 Charting in accordance with ME APPROVED ENTERPRI SE STANDARD (MEAES) ACUTE INPATIENT/REHABILITATION KENDRICK SING ADMISSION SCREENING, ASSESSMENT, AND STANDARDS OF CARE ORAL INTAKE (PERCENTAGE OF MEAL EATEN) Lunch: 76% - 100% /emely/ BETH BOLTON Registered Nurse Signed: 12/12/2021 14:24 Receipt Acknowledged By: 12/12/2021 14:26 /es/ RADHA CUBA REGISTERED NURSE Dec 12, 2021 02:16 NURSING INPATIENT NOTE: BETH BOLTON [place] PM LOCAL TITLE: VAAES ACUTE INPATIENT NSG SHIFT SESSMENT [facility] STANDARD TITLE: NURSING INPATIENT NOTE DATE OF NOTE: DEC 12, 2021@14:16 ENTRY DATE: DEC 12, 2021@14:16:41 AUTHOR: BETH BOLTON EXP COSIGNER: URGENCY: STATUS: COMPLETED Version 2.2 Charting in accordance with ME APPROVED ENTERPRI SE STANDARD (VAAES) ACUTE INPATIENT/REHABILITATION NURSING ADMISSION SCREE JEROME, ASSESSMENT, AND STANDARDS OF CARE REASSESSMENT PAIN ASSESSMENT Are you currently experiencing pain? No Pain Score: 0 ENVIRONMENTAL SAFETY MANAGEMENT Implemented safety standards of care: -[place] to unit & environment -Adequate room lighting -Bed in low and locked position -Call light within reach -Personal items within reach -Traffic path in room free of clutter -Non-slip footwear -Upper/half length side rails up for bed mobili ty -Sensory aids within reach -Encourage patient to utilize sensory support NEUROLOGICAL Neurological Orientation: Oriented x4 Level of Consciousness (AVPU): Alert = Appears aware of and responsive to the environment on their own. Follows commands, open eyes spontaneously, and tract objects. Affect/behavior: Cooperative Calm NEUROMUSCULAR/NEUROVASCULAR EXTREMITIES ASSESSM ENT Strength: Nursing Clinical Director Bilateral: Strong Upper Extremity Bilateral: Full strength Lower Extremity Bilateral: Full strength Sensation: Upper Extremity Sensation Bilateral: Intact Lower Extremity Sensation Bilateral: Intact Temperature: Upper Extremity Temperature Bilateral: Warm Lower Extremity Temperature Bilateral: Warm CARDIOVASCULAR Heart Sounds: Normal (S1S2) Heart Rate/Rhythm (without hall monitor): Irregular Capillary Refill: All 4 extremities, less than or equal to 3 seco nds. Peripheral Pulses: All 4 extremities, 3+ normal. Edema: None RESPIRATORY Respirations: Unlabored Pattern: Regular Breath Sounds Auscultated: Left Upper Lobe: Clear Right Upper Lobe: Clear Right Middle Lobe: Clear Left Lower Lobe: Clear Right Lower Lobe: Clear GASTROINTESTINAL Elimination: Continent Bowel Sounds: RUQ: Active LUQ: Active RLQ: Active LLQ: Active GENITOURINARY Elimination: Continent /es/ BETH BOLTON Registered Nurse Signed: 12/12/2021 14:19 Receipt Acknowledged By: * AWAITING SIGNATURE * RADHA CUBA Dec 12, 2021 12:26 NURSING NOTE: BETH BOLTON [place] PM LOCAL TITLE: VAAES NSG IV INSERTION AND MAINTEN ANCE [facility] STANDARD TITLE: NURSING NOTE DATE OF NOTE: DEC 12, 2021@12:26 ENTRY DATE: DEC 12, 2021@12:26:37 AUTHOR: BETH BOLTON EXP COSIGNER: URGENCY: STATUS: COMPLETED Version 2.2 Charting in accordance with ME APPROVED ENTERPRI SE STANDARD (VAAES) ACUTE INPATIENT/REHABILITATION KENDRICK SING ADMISSION SCREENING, ASSESSMENT, AND STANDARDS OF CARE IV Line Insertion and Maintenance Peripheral IV Line #1: Assessment: Location: Left, Antecubital Gauge: 20 Dressing Condition: Clean, dry, intact Site Condition: No redness, swelling, pain Line Status: Capped /es/ BETH Adrian BOLTON Registered Nurse Signed: 12/12/2021 12:27 Receipt Acknowledged By: 12/12/2021 12:28 /emely/ RADHA CUBA REGISTERED NURSE Dec 12, 2021 09:39 GASTROENTEROLOGY CONSULT: ERNA HERNANDEZ [facility] TITLE: CONSULT: [facility] STAND[facility] T[facility]: GASTROENTEROLOGY CONSULT DATE OF NOTE: DEC 12, 2021@09:39 ENTRY DATE: DEC 12, 2021@09:40:01 AUTHOR: ERNA HERNANDEZ EXP COSIGNER: URGENCY: STATUS: COMPLETED Gastroenterology Consultation Note Reason for consult: dysphagia and MBS showing la rge volume aspiration wiht complicated esophageal anatomy HPI: Mr. Meek is a 71-year-old male wi th a PMH of Stage IIIa lung cancer s/p chemo/radiation/dervalumab, COPD, former smoker, diverticulitis s/p left hemicolectomy, s/p open ileo cecectomy 2018, chronic LBP s/p discectomy, obesity, and HTN, who presented 12/06 with a 6 month history of 70 lb unintentional weight loss, fatigue/weakness/malai se, anorexia, odynophagia, and acute 10 day history of increased sputum production and worsening SOB . In the ED, he was COVID positive, had a CXR which showed near complete o pacification of the right hemithorax, and had a chest CT with evidence of a large volume aspiration event. He was admitted for treatmen t of COVID infection with remdesevir (completed, off precautions) and aspiration pneumonia (7 day cou rse completed today). Today Mr. Meek confirms he has had several months of poor appetite leading to unintentional weight loss, early satiety, nausea without vomiting, and odynophagia. He denies dysphagia. He reports whe n he eats solid foods, he experiences sharp substernal pain that gradually worsens if he continues to eat and radiates down into his abdomen. Denies radia tion elsewhere. He generally lies down after eating becau se he feels this improves his abdominal pain. Denies dysphagia/odynophagia with pills or liquids (inc luding cold liquids -I drink cold iced tea all the time. ) He reports intermittent acid reflux with no change in any symptoms after starting Omeprazole. He re ports he has been eating primarily soft pastas becaus e eating tougher solid food (meats, sausages) causes him pain. He is edentulous a nd doesn't usually wear his dentures at home because they are old and loose. He had a modified BASW w [facility] inpatient which revealed large volume silent aspirati on and a large column of barium that remained in the patient's esophagus. He reports a long history of smoking and alcohol use but quit both in 2016. His family history is pertinent for a brother with liver cancer. Last EGD 2016 with a hiatal hernia and portal gastropathy. Last col onoscopy 2018 with an unresectable IC valve TA, now s/p ileocectomy. Review of systems: General: denies fever, chills, night sweats, mal aise GI: denies black or bloody stools; current bowel habit is 3-5 BMs daily (previously diarrhea), now it's firming up. Past Medical History: Active problems - Computerized Problem List is t he source for the followin. Former smoker 2. 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 Osteoarthritis 4. Psoriasis 5. Spinal stenosis of lumbar region 6. Low back pain 7. Joint pain 8. Primary malignant neoplasm of lung 9. Morbid obesity 10. Benign essential hypertension 11. Chronic obstructive lung disease Medications: Active Inpatient Medications (excluding Supplies ): Active Inpatient Medications Status 1) ACETAMINOPHEN TAB 975MG PO TID ACTIVE 2) ALBUTEROL INHL,ORAL 2 PUFFS INHALATION ORAL Q ID PRN ACTIVE for breathing 3) AMLODIPINE TAB 5MG PO QD please hold if systo lic <90 ACTIVE 4) AMOXICILLIN/CLAVULANATE TAB 1 TABLET PO BID P ills ACTIVE can be crushed into applesauce or substance of similar consistency. stop date 12/12 PM. 5) CARBOXYMETHYLCELLULOSE 0.5% SOLN,OPH ONE DROP OU QID ACTIVE 6) CHOLECALCIFEROL TAB 10MCG PO QD ACTIVE 7) DICLOFENAC 1% GEL,TOP 4 GRAMS TO LOWER EXTREM ITIES ACTIVE TOP QID PRN apply to low back for pain 8) ENOXAPARIN INJ 40MG/0.4ML SQ QD ACTIVE 9) FAMOTIDINE TAB 10MG PO BID ACTIVE 10) LOSARTAN TAB 12.5MG PO QD please hold if sys tolic ACTIVE <90 11) OLODATEROL/TIOTROPIUM INHL,ORAL 2 PUFFS INHA LATION ACTIVE ORAL QD 12) OMEPRAZOLE CAP,EC 20MG PO BID-AC ACTIVE 13) SERTRALINE TAB 150MG PO QD ACTIVE Allergies: LISINOPRIL Social History: lives with his , has several children Tobacco: ~100 pack year history, quit in 2016 ETOH: self described former alcoholic, quit in 2 016 Marijuana/drug use: denies Family History: brother had liver cancer Physical Examination: Vitals: B/P PULSE WEIGHT BMI SpO2 PAIN 128/74 95 232.2 31.5 98 0 General: Well-appearing obese male, NAD, no shahriar dice or pallor. HEENT: Normocephalic, atraumatic. EOMI, sclera a nicteric. Pulm: Chest rubina and fell symmetrically. Normal work of breathing. Abd: Protuberant, soft, nont jason, nondistended. Large well-healed midline scar. Ext: No edema. Psych: Appropriate mood and affect. Labs: ------ PO4: 3.1 MAGNESIUM (406803): 1.8 GLUCOSE: 110 H UREA NITROGEN: 11 CREATININE: 0.70 SODIUM: 139 POTASSIUM: 4.1 CHLORIDE: 107 CO2: 24 ANION GAP: 8 ASTRA CA: 8.3 L eGFR CKD-EPI 2020: >90.0 WBC: 5.5 RBC: 4.37 HGB: 11.1 L HCT: 36.4 L MCV: 83.3 MCH: 25.4 L MCHC: 30.5 L RDW: 17.0 H PLT: 165 MPV: 9.0 L ALTERNATE LYMPHS: 12.2 L JAMAR MONO %: 7.5 JAMAR GRAN %: 78.9 H JAMAR BASO %: 0.2 JAMAR EOS %: 0.7 IMMATURE GRANULOCYTES: 0.5 NRBC: 0.0 ABS I.0 RDW-SD: 51.6 H ABSOLUTE BASO: 0.0 L ABSOLUTE EOS: 0.0 L ABSOLUTE LYMPH: 0.7 L ABSOLUTE MONO: 0.4 ABSOLUTE NEUT: 4.3 ABSOLUTE NRBC: 0.00 Imaging Studies: 12/10/21 CTAP The absence of oral and intravenous contrast li mits the exam. Liver: Mildly enlarged, measuring 21 cm, which [...] nonspecific celiac and portocaval lym ph nodes. 12/09/21 Modified BASW FINDINGS: The patient demonstrates early large v olume aspiration and consistent penetration. The aspiration was [...] as additional risk for larger volume aspiration. 12/06/21 CT chest FINDINGS: A right-sided Mediport is in place [...] (series 4 images 3 01 and 273). Musculoskeletal: No suspicious lytic or blastic osseous [...] CT or MRI for more definitive characterization. Endoscopic Reports: 12/11/18 Colonoscopy - Unresectable sessile polyp on IC valve 10/02/18 Colonoscopy - 3 TAs - 12mm polypoid lesion on back edge of IC valve, bx (TA) 05/22/16 Colonoscopy - Patchy areas of erythema and mucosal erosion i n sigmoid colon. - Colonic decompression 05/08/16 Colonoscopy - Severe angulation/twist in sigmoid colon about 20cm in. Proximal to this point there was significant disten tion of descending colon witha large amount of fluid remaining. - Largely dilated colon present from sigmoid to cecum. 05/05/16 Colonoscopy - Large amount of semi-solid stool, colonic deco mpression tube left in place 05/02/16 EGD - Hiatal hernia - Portal gastropathy 05/02/16 Flex sig - Colonic decompression Assessment: Mr. Meek is a 71-year-old male with a PMH of S tage IIIa lung cancer s/p chemo/radiation/dervalumab, COPD, former smoker, diverticulitis s/p left hemicolectomy, s/p open ileo cecectomy 2018, chronic LBP s/p discectomy, obesity, and HTN, who presented 12/06 with a 6 month history of 70 lb unintentional weight loss, fatigue/weakness/malai se, anorexia, odynophagia, and acute 10 day history of increased sputum production and worsening SOB . In the ED, he was COVID positive, had a CXR which showed near complete o pacification of the right hemithorax, and had a chest CT with evidence of a large volume aspiration event. He was admitted for treatmen t of COVID infection with remdesevir (completed, off precautions) and aspiration pneumonia (7 day cou rse completed today). GI was consulted to evaluate 6 month history of poor appetite leading to unintentional weight loss, early satiety, nausea without vomiting, and odynophagia with solid food. He had a modified B ASW while inpatient which revealed large volume silent aspiration and a la rge column of barium that remained in the patient's esophagus. CT CAP with a new 1.4 cm left adrenal lesion, small hiatal hernia with distal esophage al wall thickening, new multilobular gastrohepatic soft tissue, mild hep atosplenomegaly, and shotty nonspecific celiac and portocaval lymph nodes. Currently there is a wide differential for Mr. Amy reed's symptoms including: esophageal (severe esophagitis, humberto infection, esophageal spasm/achalasia, malignancy), gastric (malignancy, gastric outflo w obstruction, less likely gastroparesis, PUD), liver ( ?cirrhosis, malignancy). FIB-4 1.92 and APRI 0.3 not highly suggestive of advanced fibrosis. Recommendations: - EGD on Sunday at 3:00 with anesthesia - MRI liver - Continue Omeprazole pending EGD. - If EGD/imaging unremarkabl e, consider outpatient GI evaluation for question of esophageal dysmotility. Patient discussed with Dr. Hill. /emely/ ERNA HERNANDEZ PA-C Signed: 12/12/2021 10:26 Receipt Acknowledged By: * AWAITING SIGNATURE * SERGIOYAMEL NASCIMENTO Dec 12, 2021 08:46 NUTRITION DIETETICS NOTE: CONY SANTACRUZ [facility] TITLE: Nutrition Follow-Up Note [facility] STANDARD TITLE: NUTRITION DIETETICS NOTE DATE OF NOTE: DEC 12, 2021@08:46 ENTRY DATE: DEC 12, 2021@08:46:39 AUTHOR: CONY SANTACRUZ EXP COSIGNER: URGENCY: STATUS: COMPLETED Per calorie counts: 12/09: lunch and dinner meals counted, pt consumed ~610 kcals and 21 gm protein 12/10: 3 meals counted, pt consumed ~1390 kcals a nd 50 gm protein 12/11: only breakfast and lunch counted, pt consu med ~1050 kcals and 39 gm protein The majority of the kcals and protein are coming from the Ensure Plus, he drinks a little milk, juice and sometimes consum es a pudding or soup. At most meals counted the pt is consuming betwee n 400 and 500 calories per meal, again 350 kcals from Ensure. See an EGD is planned for Sun. SUBJECTIVE: Appetite: mostly poor, fair at best N/V/D/C: + nausea at times Chewing/swallowing problems: + dysphagia/odynoph agia per MBS Current Diet: Minced and Moist IVF: none currently Enteral/Parenteral Nutrition: none Skin Condition: no pressure sores noted Laboratory Data: Reviewed, BG has been well controlled Pertinent Medications: Active Inpatient Medications (excluding Supplies ): Active Inpatient Medications Status 4) CEFTRIAXONE 2GM/DEXTROSE 5% 50ML INJ,SOLN in ACTIVE CEFTRIAXONE 2GM/D5W 50 ML INFUSE OVER 30 MINUTE S IV QD 5) CHOLECALCIFEROL TAB 10MCG PO QD ACTIVE 7) ENOXAPARIN INJ 40MG/0.4ML SQ QD ACTIVE 8) FAMOTIDINE TAB 10MG PO BID ACTIVE 9) LOSARTAN TAB 12.5MG PO QD please hold if syst olic ACTIVE <90 10) MAGNESIUM OXIDE TAB 840MG PO ONCE ACTIVE 11) METRONIDAZOLE TAB 500MG PO TID ACTIVE 13) OMEPRAZOLE CAP,EC 20MG PO BID-AC ACTIVE 14) POTASSIUM CHLORIDE LIQUID,ORAL 30MEQ/22.5ML PO ONCE ACTIVE 15) REMDESIVIR INJ REMDESIVIR 100 MG in SODIUM C HLORIDE ACTIVE 0.9% INJ 100 ML INFUSE OVER 60 MINUTES IV QD 16) SERTRALINE TAB 150MG PO QD ACTIVE Food-Drug interactions: reviewed NUTRITION-FOCUSED PHYSICAL EXAM/ASSESSMENT Unable to perform nutrition-focused physical exa m/assessment Nutrition Vitals: Height: 72 in [182.9 cm] (03/05/2019 11:48) Frame Size: LARGE Weight: 232.2 lbs 12/12 233.7 lb [106.00 kg] (12/06/2021 21:43) Weight Hx: wt loss of 50 lbs in past 5 m onths; 43 lbs in past 3 months (15.5%) HUMAN RESOURCE CONSULTANT. Wt is down another 1.5 lbs in 6 days. Hunter Weight: 196 lbs % Hunter Wt: 118% BODY MASS INDEX - 31.56 12/12/21 Estimated Nutrition Needs: Kilocalorie requirement: 2500 (28 kcals/kg IBW) Protein requirement: 127 (1.2 gm/kg ABW) Fluid requirement: (30-35 ml/kg) or per Team Nutrition Diagnosis: Unintentional weight loss ( ACTIVE) Related to: anorexia, nausea, diarrhea, SOB, swa llowing difficulty/discomfort with eating As evidenced by: 50 lbs weight loss in p ast 5 months, 43 lbs of that in past 3 months Nutrition Diagnosis: Inadequate oral intake (ACT MARK) Related to: difficulty/pain w/ swallowing, mostl y poor appetite, nausea and abd discomfort at times, early satiety As evidenced by: significant wt loss HUMAN RESOURCE CONSULTANT, calori e count results showing pt unable to meet est needs ETIOLOGY: Physiological/Metabolic INTERVENTION/PLAN: Nutrition Prescription - Diet adjusted t o Full liquids w/ mildly thick liquids Food/nutrient delivery - --Ensure Plus w/ meals (instead of Glucerna) as this supplies more kcals and protein and is main source of nutrition --No frozen items per TECHNICAL SUPPORT AGENT, subbed out w/ pudding and high protein jello (is a mildly thick item) --Cont calorie count --Consider nutrition support if pt continues to be unable to meet even 75% of est needs Nutrition Education: pending depending on final diet recs at d/c Coordination of Nutrition care - team, TECHNICAL SUPPORT AGENT Monitoring/Evaluation: Food/nutrition related history outcomes - New goal: Pt will consume enough at meals to zulema t at least 75% of his est needs --->Not met, cont Anthropometric Measurement Outcomes- Avoid wt lo ss of >1.5 lbs/week during admission --->Currently met, cont Recommended f/u: 1 day /es/ Cony Santacruz RD Clinical Dietitian Signed: 12/12/2021 13:02 Dec 12, 2021 08:35 NURSING NOTE: BETH BOLTON J CT AM LOCAL TITLE: NURSING PROGRESS OTHER NOTE [facility] STANDARD TITLE: NURSING NOTE DATE OF NOTE: DEC 12, 2021@08:35 ENTRY DATE: DEC 12, 2021@10:35:56 AUTHOR: BETH BOLTON EXP COSIGNER: URGENCY: STATUS: COMPLETED Masimo/Safety Net YES /emely/ BETH BOLTON Registered Nurse Signed: 12/12/2021 10:36 Receipt Acknowledged By: * AWAITING SIGNATURE * ROSA ELENARADHA Dec 12, 2021 08:30 NURSING INPATIENT NOTE: BETH BOLTON [place] AM LOCAL TITLE: [facility] NURSING FREQUENT DOCUMENTATI ON [facility] STANDARD TITLE: NURSING INPATIENT NOTE DATE OF NOTE: DEC 12, 2021@08:30 ENTRY DATE: DEC 12, 2021@10:34:20 AUTHOR: BETH BOLTON EXP COSIGNER: URGENCY: STATUS: COMPLETED Version 2.4 Charting in accordance with ME APPROVED ENTERPRI SE STANDARD (VAAES) ACUTE INPATIENT/REHABILITATION KENDRICK SING ADMISSION SCREENING, ASSESSMENT, AND STANDARDS OF CARE BRIEF CONFUSION ASSESSMENT METHOD - bCAM Feature 1: Mental Status Change: No change from baseline (bCam negative, no delirium) Feature 2: Inattention Exam Errors: 0-1 error ( bCam negative, no delirium) Feature 3: Altered level of Consciousness: RASS = 0, alert and calm Feature 4: Disorganized thinkin errors bCAM Result: Final Result Negative ORAL INTAKE (PERCENTAGE OF MEAL EATEN) Breakfast: 76% - 100% /es/ BETH BOLTON Registered Nurse Signed: 12/12/2021 10:35 Receipt Acknowledged By: * AWAITING SIGNATURE * RADHA CUBA Dec 12, 2021 08:25 NURSING NOTE: BETH BOLTON [facility] TITLE: VAAES SKIN INSPECTION/ASSESSMENT [facility] STANDARD TITLE: NURSING NOTE DATE OF NOTE: DEC 12, 2021@08:25 ENTRY DATE: DEC 12, 2021@10:30:50 AUTHOR: BETH BOLTON EXP COSIGNER: URGENCY: STATUS: COMPLETED SKIN REINSPECTION/REASSESSMENT SKIN INSPECTION: Skin Color: Usual for ethnicity Skin Temperature: Warm Skin Moisture: Normal Skin Turgor: Elastic (normal/immediate) Nate Skin Assessment: The patient's Nate Scale Score is 20. The pat ient is considered not at risk for development of pressure ulcers/injurie s. Sensory perception -- ability to respond meanin gfully to pressure-related discomfort No impairment. Moisture -- degree to which skin is exposed to moisture Rarely moist. Activity -- ability to change and control body position Walks occasionally. Mobility -- ability to change and control body position Slightly limited. Nutrition -- usual food intake patterns Adequate. Friction and shear No apparent problem. INTERVENTIONS: The pressure injury interventions were not need ed - patient/resident is not at risk. Localized abnormality: Bruising: Location(s): scattered BUE Other: Location(s): midline incisional scar /emely/ BETH BOLTON Registered Nurse Signed: 12/12/2021 10:33 Receipt Acknowledged By: 12/12/2021 10:42 /emely/ RADHA CUBA REGISTERED NURSE Dec 12, 2021 08:21 NURSING INPATIENT NOTE: [facility] BOLTON [facility] TITLE: VAAES [facility] T[facility]: NURSING INPATIENT NOTE DATE OF NOTE: DEC 12, 2021@08:21 ENTRY DATE: DEC 12, 2021@10:58:56 AUTHOR: BETH BOLTON EXP COSIGNER: URGENCY: STATUS: COMPLETED Version 2.2 Charting in accordance with ME APPROVED ENTERPRI SE STANDARD (MEAES) ACUTE INPATIENT/REHABILITATION KENDRICK SING ADMISSION SCREENING, ASSESSMENT, AND STANDARDS OF CARE ASSESSMENT HANDOFF Bedside report and handoff completed Safety check completed PAIN ASSESSMENT Are you currently experiencing pain? No Pain Score: 0 CHAVEZ FALL SCALE & TIPS PROGRAM Chavez Fall Scale: The Chavez Fall scale was performed and score wa s 35. This is indicative of moderate risk for falls. History of falling in past 3 months? No Secondary diagnosis: Yes Ambulatory aid: None/bedrest/nurse assist Intravenous therapy/Heparin lock: Yes Gait/Transferring: Normal/bed rest/immobile Mental Status: Oriented to own ability/knows own limitations Fall Tailoring Interventions for Patient Safety (TIPS) Fall TIPS initiated with patient: No Fall TIPS reviewed with patient: Yes ENVIRONMENTAL SAFETY MANAGEMENT Implemented safety standards of care: -[place] to unit & environment -Adequate room lighting -Bed in low and locked position -Call light within reach -Personal items within reach -Traffic path in room free of clutter -Non-slip footwear -Upper/half length side rails up for bed mobili ty -Sensory aids within reach -Encourage patient to utilize sensory support NEUROLOGICAL Neurological Orientation: Oriented x4 Level of Consciousness (AVPU): Alert = Appears aware of and responsive to the environment on their own. Follows commands, open eyes spontaneously, and tract objects. Affect/behavior: Cooperative Calm NEUROMUSCULAR/NEUROVASCULAR EXTREMITIES ASSESSM ENT Strength: Nursing Clinical Director Bilateral: Strong Upper Extremity Bilateral: Full strength Lower Extremity Bilateral: Full strength Sensation: Upper Extremity Sensation Bilateral: Intact Lower Extremity Sensation Bilateral: Intact Temperature: Upper Extremity Temperature Bilateral: Warm Lower Extremity Temperature Bilateral: Warm CARDIOVASCULAR Heart Sounds: Normal (S1S2) Heart Rate/Rhythm (without hall monitor): Irregular Capillary Refill: All 4 extremities, less than or equal to 3 seco nds. Peripheral Pulses: All 4 extremities, 3+ normal. Edema: None Cardiovascular - Embolism Prevention: Comment: enoxaparin inj RESPIRATORY Respirations: Unlabored Pattern: Regular Breath Sounds Auscultated: Left Upper Lobe: Clear Right Upper Lobe: Clear Right Middle Lobe: Clear Left Lower Lobe: Clear Right Lower Lobe: Clear GASTROINTESTINAL Last bowel movement: 12/12/2021 Elimination: Continent Palpation: Soft, Non-tender Bowel Sounds: RUQ: Active LUQ: Active RLQ: Active LLQ: Active GENITOURINARY Elimination: Continent INTEGUMENTARY/SKIN/WOUND - (INCLUDING NATE) SEE NOTE: VAAES SKIN INPECTION/ASSESSMENT ACTIVITIES OF DAILY LIVING Hygiene ADLs: Oral Care: Non-ventilator patient: Patient teeth brushed: Independently The Terrell was educated that poor oral hygiene increases the risk of hospital acquired pneumonia and dental problems like gingivitis and tooth decay. Terrell was educated using their preferr ed method and verbalized understanding. IV LINES Peripheral IV: Line #1: Assessment: Location: Left, Antecubital Gauge: 20 Dressing Condition: Clean, dry, intact Site Condition: No redness, swelling, pain Line Status: Capped Flushed ADULT EDUCATION Education provided: Topic 1: Importance of sitting up in bed while eating or drinking and for a couple hours after Specific Content: Method: Verbal Provided to: Patient Patient understanding of education content: Verbalized understanding /emely/ BETH BOLTON Registered Nurse Signed: 12/12/2021 11:01 Receipt Acknowledged By: 12/12/2021 11:02 /emely/ RADHA CUBA REGISTERED NURSE Dec 12, 2021 07:50 INTERNAL MEDICINE NOTE: SALBADOR ORTIZ [facility] TITLE: General Internal Medicine Note [facility] STANDARD TITLE: INTERNAL MEDICINE NOTE DATE OF NOTE: DEC 12, 2021@07:50 ENTRY DATE: DEC 12, 2021@07:51:21 AUTHOR: CURT MCMANUS COSIGNER: SALBADOR TOBAR URGENCY: STATUS: COMPLETED Date/Time of Admission: Nov 16:44 Allergies: LISINOPRIL Remote Allergy/ADR: RART - Remote Allergy/ADR No Remote Allergy/ADR Data available for this pa tient 24 hour events/subjective:No overnight events. L ast bowel movement was this morning, loose and consistent with other recent bowel movements. Back pain is improved with Tylenol. He is mobile with assisted device but only ambulates to the restroom. Active Inpatient Medications (excluding Supplies ): Active Inpatient Medications Status 1) ACETAMINOPHEN TAB 975MG PO TID ACTIVE 2) ALBUTEROL INHL,ORAL 2 PUFFS INHALATION ORAL Q ID PRN ACTIVE for breathing 3) AMLODIPINE TAB 5MG PO QD please hold if systo lic <90 ACTIVE 4) AMOXICILLIN/CLAVULANATE TAB 1 TABLET PO BID P ills ACTIVE can be crushed into applesauce or substance of similar consistency. stop date 12/12 PM. 5) CARBOXYMETHYLCELLULOSE 0.5% SOLN,OPH ONE DROP OU QID ACTIVE 6) CHOLECALCIFEROL TAB 10MCG PO QD ACTIVE 7) DICLOFENAC 1% GEL,TOP 4 GRAMS TO LOWER EXTREM ITIES ACTIVE TOP QID PRN apply to low back for pain 8) ENOXAPARIN INJ 40MG/0.4ML SQ QD ACTIVE 9) FAMOTIDINE TAB 10MG PO BID ACTIVE 10) LOSARTAN TAB 12.5MG PO QD please hold if sys tolic ACTIVE <90 11) OLODATEROL/TIOTROPIUM INHL,ORAL 2 PUFFS INHA LATION ACTIVE ORAL QD 12) OMEPRAZOLE CAP,EC 20MG PO BID-AC ACTIVE 13) SERTRALINE TAB 150MG PO QD ACTIVE Physical Exam: Vital signs (include range): DATE/TIME TEMP PULSE RESP BP PAIN WEIGHT 12/12/21 @ 0528 0 12/12/21 @ 0500 97.2 95 18 128/74 0 232.2 12/11/21 @ 1956 98.3 92 18 121/65 3 Ins/Outs: Weight: 232.2 lb [105.32 kg] (12/12/2021 05:00) General: NAD, laying in bed Head and Neck: supple neck Respiratory: Lungs sounds improved in apex of ri ght upper lobe and absent in right lower lobe, no rhonchi appreciated in left field today. Cardiovascular: RRR, no MRG Abdomen/GI/: protuberant but nondisten ded, hyperactive bowel sounds,soft and non tender Musculoskeletal:no bony deformities Neurological: EOMI, II-XII grossly intact Psychiatric/Mental Status: appropiate affect Diagnostics Labs: HEMATOLOGY: 12/12/2021 06:33 \ 11.1 / 5.5 ------ 165 / 36.4 \ PMN: 78.9% H LYMPH: 12.2% L MONO: 7.5% EOS: 0.7% BASO: 0.2% BANDS: 0.5% A.7 L MCV: 83.3 RDW: 17.0 H MCHC: 30.5 L MCH: 25.4 L CHEMISTRY: Dec 12, 2021@06:52 139 107 11 / 110 4.1 24 0.70 \ Gap: 8 eGFR(CKD-EPI 2020): >90.0 Calcium: 8.3 L @ 2021 06:52 Imagin12/10/2021 CT ABD & PELVIS WITHOUT CONTRAST CPT Code: 14401 Interpreting Staff: RADIOLOGY,OUTSIDE Exam Case Number: [id number] Exam Status: COMPLETE Rpt Status: VERIFIED Technologist: ROYAL SOLOMON Reason for Study: 71 yo male with dysphagia ?esophageal anatomy History: No contrast allergy BUN: 8 (12/10/21 08:05) CREATI: 0.78 (12/10/21 08:05) eGFR Last 3 Results Collection DT Spec CREATI e GFR(CK 12/10/2021 08:05 PLASM 0.78 >90.0 12/09/2021 06:00 PLASM 0.70 >9 0.0 12/08/2021 06:00 PLASM 0.76 >90.0 Weight: 233.7 lb [106.00 kg] (12/06/2021 21:43) BODY MASS INDEX - NO HEIGHTS FOUND Pager number: [phone] STAT orders MUST be call ed to RADIOLOGY [phone] to speak to the appropriate septic tank service technician. Report: EXAM: CT abdomen and pelvis without contrast COMPARISON: CT abdomen and pelvis dated 05/01/2016. HISTORY: dysphagia ?esophageal anatomy TECHNIQUE: Contiguous axial images of the abdomen and pelv is were obtained without intravenous contrast. Coronal and sagit emily reformatted images were also obtained. Total number of imag es submitted = [id number]. Total DLP (mGy*cm): 773.80 IV contrast: Not administered FINDINGS: The absence of oral and intravenous contrast li mits the exam. Lung Bases: New incompletely imaged loculated p leural fluid with surrounding pleural thickening in the post erior right base. Trace pericardial fluid. Liver: Mildly enlarged, measuring 21 cm, which has increased since the prior exam. Multilobular gastrohepati c soft tissue, which is new since the prior exam and difficult to separate from the caudate lobe without intravenous contr ast. Biliary: Limited evaluation of the gallbladder due to contraction and streak artifact related to ryan um within adjacent colon. Spleen: Mildly enlarged, measuring 13 cm, [...] of the duodenum. Residual contrast within the colo n. An apparent right hemicolectomy has been performed since e prior exam. Mild fat stranding adjacent to the hepatic flex ure and liver may represent scarring or nonspecific trace asc ites. No bowel obstruction. Status post midline anterior abdom inal wall hernia repair with mesh placement. Bones: Multilevel degenerative change within e spine. Unchanged minimal L4-L5 anterolisthesis. No valerie picious bone lesions. Other: Unchanged small fat-containing bilateral inguinal [...] adrenal nodule. Attention to this on the f ollow-up MRI is suggested. 4. Mild hepatosplenomegaly. 5. Shotty nonspecific celiac and portocaval lym ph nodes. READING PHYSICIAN: Ramone Munoz D.O. [phone] 12/10/2021 10:55 EDT [facility] Enerpulseradiology [facility] [phone] (For Medical Practitioner Use Only ) [address], [facility] [address], [address] [place] [address] Attention Patients / Veterans: If you have ques tions or concerns about these test results, please conta ct your ordering provider or primary care team. DX Codes: SIGNIFICANT ABNORMALITY, ATTN NEEDED Assessment: 71 year old MALE with a history of Stage IIIa adenocarcinoma EGFR/ALK negative s/p chemotherapy/radiation/d ervalumab, COPD, diverticulitis s/p partial colonic resection, chronic low back pain s/p discectomy here for a 6 month history of 70 pound unintentional weight loss, fatigue, weakne ss, anorexia, odynophagia, myalgias, intermittent diarrhea and gene ral malaise alongside a 10 day history acutely of increased sputum production, SOB, and recent COVID+ here with aspiration penumonia. Patient continues to improve from respiratory pe rspective, now on oral antibiotics for aspiration p neumonia. He completed his course of remdesiver, no longer on active COVID treatment or precautions per ID recommendations. MBS showed significant esophage al dysfunction with large amount of barium remai jerome in patient's esophagus. This is concerning for ongoing risk for aspiration. Have reached out to GI consultants about EGD, planned for Sunday. Per their request, obtain ed CT abdomen wo contrast first to better characterize GI anatomy prior to the EGD. CT scan review revealed new left adrenal ma ss which will be followed outpatient with PET scan. CT also revealed multilobula r gastrohepatic soft tissue to be evaluated with MRI this week. Per TECHNICAL SUPPORT AGENT recommendations, will also wo rk with ENT consultants to assess for vocal chord pathology although this s eems less likely to be the underlying cause of his dysphagia and ongoing si lent aspiration. Of note, patient's acute presentation is best explained by a silent aspiration event with subsequent development of aspiration pneumonia however, he does require close follow up with his oncologist (dr. Cameron) at discharge due to possible progression of lung adenocarcinoma and new left adrenal mass. PLAN: #SOB #aspiration PNA -S/p Ceftriaxone 2 g/day + metronidazole 500 mg IV/PO q 8(12/06 - 12/09) -Continue Augmentin 875/125 PO BID until 12/12 to complete 7 day course -appreciate pulmonology consult -appreciate ID consult #COVID+, resolved -Remdesivir 200 mg IV once(12/06) and 100 mg IV q d(12/07-12/09) -Off precautions 12/09 -appreciate ID recs #Difficulty Swallowing/Chronic Silent Aspiration -Appreciate TECHNICAL SUPPORT AGENT consult -CT abdomen wo contrast per GI:small hiatal portia ia with nonspecific distal esophageal wall thickening, multilobular gastroh epatic soft tissue -EGD this week, appreciate GI consult -Continue PPI -Added H2 raquel (famotidine 10 mg BID) -nutrition consult for diet education #Chronic Back Pain -start scheduled Tylenol -uses assisted walking device #Left Adrenal Mass -incidental finding on CT -f/u with nephrology and PET/MRI #Multilobular gastrohepatic sof tissue -incidental finding on CT -MRI this week for further investigation -if MRI not tolerated, plan abdominal ultrasound #COPD -home inhaler regimen #HTN -continue home amlodipine and losartan #GERD -omeprazole 20 mg BID -famotidine 10 mg BID #depression -continue home sertraline #other home meds -continue cholecalciferol -continue diclofenac gel VTE prophylaxis: [x] Lovenox 40mg SC daily [ ] Lovenox 30mg SC daily (CrCl <30 but not on HD) [ ] Heparin 5000units SC TID (ESRD or other Soniya enox contraindication) [ ] patient declines VTE pharmacologic prophyla xis despite discussion of VTE risk [ ] Other pharmacologic VTE prophylaxis: [ ] Venodynes applied due to: [ ] pharmacologic prophylaxis contraindicated d ue to: [ ] high risk for VTE due to: /emely/ SALBADOR ORTIZ M.D. Signed: 12/16/2021 12:05 for CURT MCMANUS Resident Physician /charmaine ORTIZ M.D. Cosigned: 12/16/2021 12:05 Dec 12, 2021 07:06 NURSING INPATIENT NOTE: FRANCINE MILLS CB, AM LOCAL TITLE: [facility] NURSING FREQUENT DOCUMENTATI ON [facility] STANDARD TITLE: NURSING INPATIENT NOTE DATE OF NOTE: DEC 12, 2021@07:06 ENTRY DATE: DEC 12, 2021@07:06:24 AUTHOR: FRANCINE MILLS CB EXP COSIGNER: URGENCY: STATUS: COMPLETED Version 2.4 Charting in accordance with ME APPROVED ENTERPRI SE STANDARD ([facility]) ACUTE INPATIENT/REHABILITATION KENDRICK SING ADMISSION SCREENING, ASSESSMENT, AND STANDARDS OF CARE ENVIRONMENTAL SAFETY MANAGEMENT Implemented safety standards of care: -[place] to unit & environment -Adequate room lighting -Bed in low and locked position -Call light within reach -Personal items within reach -Traffic path in room free of clutter -Non-slip footwear -Upper/half length side rails up for bed mobili ty -Sensory aids within reach -Encourage patient to utilize sensory support visual check, pt. is laying in bed watching TV. pt. with no needs a this time /emely/ FRANCINE MILLS Staff Nurse Signed: 12/12/2021 07:06 Dec 12, 2021 06:55 INTERNAL MEDICINE ATTENDING NOTE: BERNARDO ORTIZ AM LOCAL TITLE: Attending Note Medical Service [facility] STANDARD TITLE: INTERNAL MEDICINE ATTENDING NOTE DATE OF NOTE: DEC 12, 2021@06:55 ENTRY DATE: DEC 12, 2021@06:55:14 AUTHOR: SALBADOR ORTIZ EXP COSIGNER: URGENCY: STATUS: COMPLETED I have seen and examined this Terrell wi the Resident Hospital Medicine Team on rounds, and agree with eir documentation in bulk, emphasized and amended as follows: PCP [facility]ito problems: 1. Aspiration and resultant R sided pneumonia/lo culated effusion Stable on RA, with ongoing right sided dullness and decreased fremitus in the lower 2/3 of the lung field, ongoing CHENG. 12/09 b arium swallow showed gross silent aspiration and slow clearance of barium from the esophagus, suggesting possible distal o bstruction; on CT there is distal gastroesophageal thickening poorly elucid ated without contrast. TECHNICAL SUPPORT AGENT thought this was more likely historically consis tent with esophageal dysmotility/spasm (pressure /pain with po of solids>liquids but it also occured with ice cold water but not with room temp water ), though gastroesophageal malignancy is a major consideration. Tendency to lie supine after eating is modifiable; frustrated by di etary modification, will have nutrition help us work with him to identify what fo ods he might eat with little or minimal modification as we work up further. No obvious neurologic cau se. - GI for EGD to assess for stricture/mass versus esophageal dysmotility +/- esophageal spasm - continue augmentin through today day 12/22 - PET as below - ENT for laryngoscopy - need to change to inpat ient; predominantly for penetration early in swallow study, question largyngeal lesion or other factor. 2. Loculated pleural effusion secondary to the a bhavna. - as above - Consider re-imaging timeline for this; questio n role for drainage for diagnostic purposes pending EGD; less likely to be revelatory/related to GI findings. 3. Post-prandial discomfort, anorexia/food avoid ance, weight loss, new left adrenal nodule and gastrohepatic soft tissue fin dings with adenopathy; decreasing R adrenal nodules ; history of lung adenocarcinoma and >100 py tobacco use. Ominous for maligancy but esophagit is and other causes remain possible as the predominant agent of weight loss/chest disco mfort. Doubt vascular cause such as chronic mesenteric ischemia based on sym ptoms and other findings. - EGD and then MRI abdomen MONI - PET CT scan with OP oncologist for con tinuity of radiographic monitoring and image storage 4. COVID 19 AG+ Unclear but likely minimal r ole in current presentation; s/p remdesivir x5 days per ID, who felt the pneumonia was the predomina nt factor. 5. Goals of care Followed by oncology at [facility]. Will explore once we have more information to inform discussions; however, palliative care introduction may be reasonable this admission, as well as formulatin g/reinforcing a good plan for communication across systems; will connect with Dr Melton later this week. Rest per resident note. Pager [phone] [facility] medicine /es/ SALBADOR ORTIZ M.D. Signed: 12/12/2021 13:28 Dec 12, 2021 06:55 STUDENT NOTE: CELENA KENNY [facility] TITLE: Medical Student Note [facility] STANDARD TITLE: STUDENT NOTE DATE OF NOTE: DEC 12, 2021@06:55 ENTRY DATE: DEC 12, 2021@06:56:11 AUTHOR: CELENA KENNY I EXP COSIGNER: KAITLIN ORTIZ URGENCY: STATUS: COMPLETED PROGRESS NOTE ID: Mr. Lucas Meek is a 71 year old male [employer] with a history of Stage IIIa adenocarcinoma of the lung s/p chemot herapy/radiation/dervalumab, COPD, diverticulitis s/p partial colonic resecti on, chronic low back pain s/p discectomy, 90 pack year hx of smoking, etoh abuse disorder, here for a subacute history of 70 pound unintentional weight loss, f atigue, weakness, anorexia, a persistent sharp constant pain in his chest radi ating to his abdomen, myalgias, persistant diarrhea and general malais e over the last six months, alongside an acute 10 day history of increased W OB, fatigue, sputum production, following recent COVID+ test on home kit after recent sick contact exposure, found to be silently a spirating on barium swallow evaluation now on hospital day 7 being treated for aspirati on pneumonia vs malignancy. 24 hours: No acute events overnight, VSS. SUBJECTIVE: This morning he says he is feeling g ood in no pain. Last bowel movement was yesterday which he descirbes as noah ng loose. Tolerating PO diet, reports improved odynophagia-like symptoms. PE: Vitals: T 97.2, P 95, RR 16, BP 128/74 General: Tired appearing, in no acute distress Head and Neck: supple neck with no evidence of l ymphadenopathy Respiratory: Lungs sounds ab sent in right base, improved at the apex, normal on the left Cardiovascular: Slightly tachycardic on exam, no murmurs Abdomen/GI/: slightly protruberent, non disten ded non tender Musculoskeletal:no bony deformities Neurological: EOMI, II-XII grossly intact Psychiatric/Mental Status: appropiate affect LABS CBC ths morning still shows stable normo cytic anemia of 11.2, no leukocytosis, BMP unremarkable. ASSESSMENT 71 year old MALE with a pert ientant medical history of Stage IIIa adenocarcinoma COPD, diverticulitis s/p partial colonic resection, here for a 6 month history of 70 pound unintentional we ight loss, fatigue, weakness, anorexia, odynophagia, myalgias, intermittent diarrhea and gene ral malaise alongside a 10 day history acutely of increased sputum production, SOB, and recent COVID+ test here with aspiration penumonia. Now on oral antibiotics for aspiration p neumonia after completing 5 day course of IV ceftriaxone and metronidazole. He completed his course of remdesiver, no longer on active COVID treatment or precautions per ID recommendations. MBS showed significant esophagea l dysfunction with large amount of barium remaining in patient's esophagus. This is concerning for o ngoing risk for aspiration. Abdominal CT showed multiple concerning markers of potental neoplastic occurance (new adrenal mass, lymphadeneppathy, hepatosplen omegaly, hepatogastric soft tissue changes). Pierre's improved respiratory status and s ubjective feelings of improved malaise afer completing IV antibioti cs and findings of silent aspiration are consistent with an acute picture of asp iration pneumonia, despite his lack of leukocytosis and fever. 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 His normocytic anemia is likely anemia of chroni c illness vs. decreased nutritional intake over his 6 month subacute his tory. Will need to be followed up in the outpatient se tting with PET scan as per oncology reccomendation. Have reached ou t to GI consultants about EGD, planned for next week. Per TECHNICAL SUPPORT AGENT recommendations, will also work with ENT consultants to assess for vocal chord pathology although this s eems less likely to be the underlying cause of his dysphagia and ongoing si lent aspiration. PLAN: #SOB #aspiration PNA -S/p Ceftriaxone 2 g/day + metronidazole 500 mg IV/PO q 8(12/06 - 12/09) -Continue Augmentin 875/125 PO BID until 12/12 to complete 7 day course -appreciate pulmonology consult -appreciate ID consult #COVID+, resolved -Remdesivir 200 mg IV once(12/06) and 100 mg IV q d(12/07-12/09) -Off precautions 12/09 -appreciate ID recs #[id number] -Appreciate TECHNICAL SUPPORT AGENT consult -EGD this week, appreciate GI consult -Continue PPI -Added H2 raquel (famotidine 10 mg BID) #COPD -home inhaler regimen #HTN -continue home amlodipine and losartan #GERD -omeprazole 20 mg BID -famotidine 10 mg BID #depression -continue home sertraline #Chronic Back Pain -start scheduled Tylenol #other home meds -continue cholecalciferol -continue diclofenac gel VTE prophylaxis: [X] Lovenox 40mg SC daily /emely/ CELENA KENNY I Medical Student Signed: 12/12/2021 10:53 /es/ SALBADOR ORTIZ M.D. Cosigned: 12/12/2021 14:10 Dec 12, 2021 06:13 NURSING INPATIENT NOTE: FRANCINE MILLS CB [facility] TITLE: MEAES NURSING FREQUENT DOCUMENTATI ON [facility] STANDARD TITLE: NURSING INPATIENT NOTE DATE OF NOTE: DEC 12, 2021@06:13 ENTRY DATE: DEC 12, 2021@06:13:56 AUTHOR: FRANCINE MILLS CB EXP COSIGNER: URGENCY: STATUS: COMPLETED Version 2.4 Charting in accordance with ME APPROVED ENTERPRI SE STANDARD (MEAES) ACUTE INPATIENT/REHABILITATION KENDRICK SING ADMISSION SCREENING, ASSESSMENT, AND STANDARDS OF CARE ENVIRONMENTAL SAFETY MANAGEMENT Implemented safety standards of care: -[place] to unit & environment -Adequate room lighting -Bed in low and locked position -Call light within reach -Personal items within reach -Traffic path in room free of clutter -Non-slip footwear -Upper/half length side rails up for bed mobili ty -Sensory aids within reach -Encourage patient to utilize sensory support visual check, pt. is laying in bed watching TV. pt. with no needs a this time /es/ FRANCINE MILLS Staff Nurse Signed: 12/12/2021 06:14 Dec 12, 2021 05:27 NURSING INPATIENT NOTE: FRANCINE MILLS [place] LOCAL TITLE: MEAES NURSING FREQUENT DOCUMENTATI ON [facility] STANDARD TITLE: NURSING INPATIENT NOTE DATE OF NOTE: DEC 12, 2021@05:27 ENTRY DATE: DEC 12, 2021@05:27:27 AUTHOR: FRANCINE MILLS CB EXP COSIGNER: URGENCY: STATUS: COMPLETED Version 2.4 Charting in accordance with ME APPROVED ENTERPRI SE STANDARD (MEAES) ACUTE INPATIENT/REHABILITATION NURSING ADMISSION SCREE JEROME, ASSESSMENT, AND STANDARDS OF CARE ACTIVITY/MOBILIZATION Mobility Status: Independent: Able to stand and step without staff assistance Steady standing balance Gait: Steady [facility] - Highest Level of Mobility achie segundo this shift: 3 - Sat at edge of bed ENVIRONMENTAL SAFETY MANAGEMENT Implemented safety standards of care: -[place] to unit & environment -Adequate room lighting -Bed in low and locked position -Call light within reach -Personal items within reach -Traffic path in room free of clutter -Non-slip footwear -Upper/half length side rails up for bed mobili ty -Sensory aids within reach -Encourage patient to utilize sensory support GASTROINTESTINAL Last bowel movement: 12/12/2021 Bowel movement reported by patient-unwitnessed Stool: Description: Soft Color: Brown Amount: Medium Elimination: Continent GENITOURINARY Elimination: Continent ORAL INTAKE (PERCENTAGE OF MEAL EATEN) Snacks: % Consumed/Comment: fresh fluids at bedside Pain DVPRS Scale Location: [facility] Pain Rating Scale (DVPRS): Pain Score: 0 Patient's acceptable pain goal: Pain Alleviating Interventions: /emely/ FRANCINE MILLS Staff Nurse Signed: 12/12/2021 05:28 Dec 12, 2021 05:26 NURSING INPATIENT NOTE: FRANCINE MILLS [place] AM LOCAL TITLE: VAAES ACUTE INPATIENT NSG SHIFT SESSMENT [facility] STANDARD TITLE: NURSING INPATIENT NOTE DATE OF NOTE: DEC 12, 2021@05:26 ENTRY DATE: DEC 12, 2021@05:26:07 AUTHOR: FRANCINE MILLS CB EXP COSIGNER: URGENCY: STATUS: COMPLETED Version 2.2 Charting in accordance with ME APPROVED ENTERPRI SE STANDARD (VAAES) ACUTE INPATIENT/REHABILITATION NURSING ADMISSION SCREE JEROME, ASSESSMENT, AND STANDARDS OF CARE REASSESSMENT NEUROLOGICAL Neurological Orientation: Oriented x4 Level of Consciousness (AVPU): Alert = Appears aware of and responsive to the environment on their own. Follows commands, open eyes spontaneously, and tract objects. Affect/behavior: Cooperative Calm NEUROMUSCULAR/NEUROVASCULAR EXTREMITIES ASSESSM ENT Strength: Nursing Clinical Director Bilateral: Strong Upper Extremity Bilateral: Full strength Lower Extremity Bilateral: Full strength Sensation: Upper Extremity Sensation Bilateral: Intact Lower Extremity Sensation Bilateral: Decreased Temperature: Upper Extremity Temperature Bilateral: Warm Lower Extremity Temperature Bilateral: Warm RESPIRATORY Respirations: Unlabored Pattern: Regular Breath Sounds Auscultated: Anterior and posterior Right Upper Lobe: Clear Left Upper Lobe: Clear Right Middle Lobe: Clear, Diminished Right Lower Lobe: Clear, Diminished Left Lower Lobe: Clear, Diminished GASTROINTESTINAL Palpation: Soft, Non-tender Bowel Sounds: RUQ: Active LUQ: Active RLQ: Active LLQ: Active GENITOURINARY Elimination: Continent /es/ FRANCINE MILLS Staff Nurse Signed: 12/12/2021 05:26 Dec 12, 2021 05:25 NURSING NOTE: FRANCINE MILLS CB, AM LOCAL TITLE: MEAES NSG IV INSERTION AND MAINTEN ANCE [facility] STANDARD TITLE: NURSING NOTE DATE OF NOTE: DEC 12, 2021@05:25 ENTRY DATE: DEC 12, 2021@05:25:34 AUTHOR: FRANCINE MILLS CB EXP COSIGNER: URGENCY: STATUS: COMPLETED Version 2.2 Charting in accordance with ME APPROVED ENTERPRI SE STANDARD (MEAES) ACUTE INPATIENT/REHABILITATION KENDRICK SING ADMISSION SCREENING, ASSESSMENT, AND STANDARDS OF CARE IV Line Insertion and Maintenance Peripheral IV Line #1: Assessment: Location: Left, Forearm Gauge: 20 Dressing Condition: Clean, dry, intact Transparent dressing Site Condition: No redness, swelling, pain Line Status: Ulises /emely/ FRANCINE MILLS Staff Nurse Signed: 12/12/2021 05:25 Dec 12, 2021 04:21 NURSING INPATIENT NOTE: FRANCINE MILLS [place] AM LOCAL TITLE: [facility] NURSING FREQUENT DOCUMENTATI ON [facility]OC STANDARD TITLE: NURSING INPATIENT NOTE DATE OF NOTE: DEC 12, 2021@04:21 ENTRY DATE: DEC 12, 2021@04:21:23 AUTHOR: FRANCINE MILLS CB EXP COSIGNER: URGENCY: STATUS: COMPLETED Version 2.4 Charting in accordance with [facility] ENTERPRI SE STANDARD (MEAES) ACUTE INPATIENT/REHABILITATION KENDRICK SING ADMISSION SCREENING, ASSESSMENT, AND STANDARDS OF CARE ENVIRONMENTAL SAFETY MANAGEMENT Implemented safety standards of care: -[place] to unit & environment -Adequate room lighting -Bed in low and locked position -Call light within reach -Personal items within reach -Traffic path in room free of clutter -Non-slip footwear -Upper/half length side rails up for bed mobili ty -Sensory aids within reach -Encourage patient to utilize sensory support visual checks being done every 20-40 min. pt. mills s been resting quietly in bed with his eyes closed. /emely/ FRANCINE MILLS Staff Nurse Signed: 12/12/2021 04:21 Dec 12, 2021 02:14 NURSING INPATIENT NOTE: FRANCINE MILLS CB ITE [facility] LOCAL TITLE: [facility] NURSING FREQUENT DOCUMENTATI ON VAM[facility]OC STANDARD TITLE: NURSING INPATIENT NOTE DATE OF NOTE: DEC 12, 2021@02:14 ENTRY DATE: DEC 12, 2021@02:14:47 AUTHOR: FRANCINE MILLS CB EXP COSIGNER: URGENCY: STATUS: COMPLETED Version 2.4 Charting in accordance with ME APPROVED ENTERPRI SE STANDARD (MEAES) ACUTE INPATIENT/REHABILITATION KENDRICK SING ADMISSION SCREENING, ASSESSMENT, AND STANDARDS OF CARE ENVIRONMENTAL SAFETY MANAGEMENT Implemented safety standards of care: -[place] to unit & environment -Adequate room lighting -Bed in low and locked position -Call light within reach -Personal items within reach -Traffic path in room free of clutter -Non-slip footwear -Upper/half length side rails up for bed mobili ty -Sensory aids within reach -Encourage patient to utilize sensory support visual checks being done every 20-40 min. pt. gene mccray been resting quietly in bed with his eyes closed. /emely/ FRANCINE MILLS Staff Nurse Signed: 12/12/2021 02:14 Dec 12, 2021 12:24 NURSING INPATIENT NOTE: FRANCINE MILLS CB [facility] LOC[facility] TITLE: VAAES NURSING FREQUENT DOCUMENTATI ON [facility]AM[facility]OC STANDARD TITLE: NURSING INPATIENT NOTE DATE OF NOTE: DEC 12, 2021@00:24 ENTRY DATE: DEC 12, 2021@00:24:04 AUTHOR: FRANCINE MILLS CB EXP COSIGNER: URGENCY: STATUS: COMPLETED Version 2.4 Charting in accordance with ME APPROVED ENTERPRI SE STANDARD (MEAES) ACUTE INPATIENT/REHABILITATION KENDRICK SING ADMISSION SCREENING, ASSESSMENT, AND STANDARDS OF CARE ENVIRONMENTAL SAFETY MANAGEMENT Implemented safety standards of care: -[place] to unit & environment -Adequate room lighting -Bed in low and locked position -Call light within reach -Personal items within reach -Traffic path in room free of clutter -Non-slip footwear -Upper/half length side rails up for bed mobili ty -Sensory aids within reach -Encourage patient to utilize sensory support visual checks being done every 20-40 min. pt. gene mccray been resting quietly in bed with his eyes closed. /emely/ FRANCINE MILLS Staff Nurse Signed: 12/12/2021 00:24 Dec 11, 2021 11:41 NURSING INPATIENT NOTE: FRANCINE MILLS CB [facility] LOC[facility] TITLE: VAAES NURSING FREQUENT DOCUMENTATI ON [facility]AM[facility]OC STANDARD TITLE: NURSING INPATIENT NOTE DATE OF NOTE: DEC 11, 2021@23:41 ENTRY DATE: DEC 11, 2021@23:41:27 AUTHOR: FRANCINE MILLS CB EXP COSIGNER: URGENCY: STATUS: COMPLETED Version 2.4 Charting in accordance with ME APPROVED ENTERPRI SE STANDARD (VAAES) ACUTE INPATIENT/REHABILITATION KENDRICK SING ADMISSION SCREENING, ASSESSMENT, AND STANDARDS OF CARE ENVIRONMENTAL SAFETY MANAGEMENT Implemented safety standards of care: -[place] to unit & environment -Adequate room lighting -Bed in low and locked position -Call light within reach -Personal items within reach -Traffic path in room free of clutter -Non-slip footwear -Upper/half length side rails up for bed mobili ty -Sensory aids within reach -Encourage patient to utilize sensory support visual checks being done every 20-40 min. pt. mills s been resting quietly in bed with his eyes closed. /emely/ FRANCINE MILLS Staff Nurse Signed: 12/11/2021 23:42 Dec 11, 2021 07:58 NURSING NOTE: FRANCINE MILLS [place] LOCAL TITLE: VAAES NSG IV INSERTION AND MAINTEN ANCE [facility] STANDARD TITLE: NURSING NOTE DATE OF NOTE: DEC 11, 2021@19:58 ENTRY DATE: DEC 11, 2021@19:58:25 AUTHOR: FRANCINE MILLS CB EXP COSIGNER: URGENCY: STATUS: COMPLETED Version 2.2 Charting in accordance with ME APPROVED ENTERPRI SE STANDARD (VAAES) ACUTE INPATIENT/REHABILITATION KENDRICK SING ADMISSION SCREENING, ASSESSMENT, AND STANDARDS OF CARE IV Line Insertion and Maintenance Peripheral IV Line #1: Assessment: Location: Left, Forearm Gauge: 20 Dressing Condition: Clean, dry, intact Transparent dressing Site Condition: No redness, swelling, pain Line Status: Capped Flushed Positive blood return /es/ FRANCINE MILLS Staff Nurse Signed: 12/11/2021 19:58 Dec 11, 2021 07:50 NURSING NOTE: FRANCINE MILLS CB LOCAL TITLE: [facility] SKIN INSPECTION/ASSESSMENT [facility] STANDARD TITLE: NURSING NOTE DATE OF NOTE: DEC 11, 2021@19:50 ENTRY DATE: DEC 11, 2021@19:50:33 AUTHOR: FRANCINE MILLS CB EXP COSIGNER: URGENCY: STATUS: COMPLETED SKIN REINSPECTION/REASSESSMENT SKIN INSPECTION: Skin Color: Usual for ethnicity Skin Temperature: Warm Skin Moisture: Normal Skin Turgor: Elastic (normal/immediate) Nate Skin Assessment: The patient's Nate Scale Score is 20. The pat ient is considered not at risk for development of pressure ulcers/injurie s. Sensory perception -- ability to respond meanin gfully to pressure-related discomfort No impairment. Moisture -- degree to which skin is exposed to moisture Rarely moist. Activity -- ability to change and control body position Walks occasionally. Mobility -- ability to change and control body position Slightly limited. Nutrition -- usual food intake patterns Adequate. Friction and shear No apparent problem. INTERVENTIONS: The pressure injury interventions were not need ed - patient/resident is not at risk. SKIN INTEGRITY: Intact /es/ FRANCINE MILLS Staff Nurse Signed: 12/11/2021 19:51 Dec 11, 2021 07:49 NURSING INPATIENT NOTE: FRANCINE MILLS CB [place] PM LOCAL TITLE: [facility] ACUTE INPATIENT [facility]G [facility]IFT [facility] STANDARD TITLE: NURSING INPATIENT NOTE DATE OF NOTE: DEC 11, 2021@19:49 ENTRY DATE: DEC 11, 2021@19:49:48 AUTHOR: FRANCINE MILLS CB EXP COSIGNER: URGENCY: STATUS: COMPLETED Version 2.2 Charting in accordance with [facility] ENTERPRI SE STANDARD ([facility]) ACUTE INPATIENT/REHABILITATION NURSING ADMISSION PENNY CANO, ASSESSMENT, AND STANDARDS OF CARE ASSESSMENT CHAVEZ FALL SCALE & TIPS PROGRAM Chavez Fall Scale: The Chavez Fall scale was performed and score wa s 35. This is indicative of moderate risk for falls. History of falling in past 3 months? No Secondary diagnosis: Yes Ambulatory aid: None/bedrest/nurse assist Intravenous therapy/Heparin lock: Yes Gait/Transferring: Normal/bed rest/immobile Mental Status: Oriented to own ability/knows own limitations Fall Tailoring Interventions for Patient Safety (TIPS) Fall TIPS initiated with patient: Yes Fall TIPS reviewed with patient: Yes NEUROLOGICAL Neurological Orientation: Oriented x4 Level of Consciousness (AVPU): Alert = Appears aware of and responsive to the environment on their own. Follows commands, open eyes spontaneously, and tract objects. Affect/behavior: Cooperative Calm NEUROMUSCULAR/NEUROVASCULAR EXTREMITIES ASSESSM ENT Strength: Nursing Clinical Director Bilateral: Strong Upper Extremity Bilateral: Full strength Lower Extremity Bilateral: Full strength Sensation: Upper Extremity Sensation Bilateral: Intact Lower Extremity Sensation Bilateral: Decreased Temperature: Upper Extremity Temperature Bilateral: Warm Lower Extremity Temperature Bilateral: Warm RESPIRATORY Respirations: Unlabored Pattern: Regular Breath Sounds Auscultated: Anterior and posterior Right Upper Lobe: Clear Left Upper Lobe: Clear Right Middle Lobe: Clear, Diminished Right Lower Lobe: Clear, Diminished Left Lower Lobe: Clear, Diminished GASTROINTESTINAL Palpation: Soft, Non-tender Bowel Sounds: RUQ: Active LUQ: Active RLQ: Active LLQ: Active GENITOURINARY Elimination: Continent INTEGUMENTARY/SKIN/WOUND - (INCLUDING NATE) SEE NOTE: VAAES SKIN INPECTION/ASSESSMENT PSYCHOSOCIAL Type of Emotional Support Provided: 1:1 discussion, Coping skills discussion, Hospi talization discussion, Ventilation of feelings encouraged /emely/ FRANCINE MILLS Staff Nurse Signed: 12/11/2021 19:50 Dec 11, 2021 07:47 NURSING NOTE: FRANCINE MILLS [place] LOCAL TITLE: NURSING PROGRESS OTHER NOTE [facility] STANDARD TITLE: NURSING NOTE DATE OF NOTE: DEC 11, 2021@19:47 ENTRY DATE: DEC 11, 2021@19:47:12 AUTHOR: FRANCINE MILLS CB EXP COSIGNER: URGENCY: STATUS: COMPLETED Masimo/Safety Net YES - Applied site finger /emely/ FRANCINE MILLS Staff Nurse Signed: 12/11/2021 19:47 Dec 11, 2021 07:47 NURSING INPATIENT NOTE: FRANCINE MILLS CB [place] LOCAL TITLE: VAAES NURSING FREQUENT DOCUMENTATI ON [facility]OC STANDARD TITLE: NURSING INPATIENT NOTE DATE OF NOTE: DEC 11, 2021@19:47 ENTRY DATE: DEC 11, 2021@19:47:33 AUTHOR: FRANCINE MILLS CB EXP COSIGNER: URGENCY: STATUS: COMPLETED Version 2.4 Charting in accordance with ME APPROVED ENTERPRI SE STANDARD (VAAES) ACUTE INPATIENT/REHABILITATION NURSING ADMISSION PENNY CANO, ASSESSMENT, AND STANDARDS OF CARE ACTIVITIES OF DAILY LIVING Hygiene ADLs: Eating: Independent Foot Care: Inspection Oral Care: Non-ventilator patient: Patient teeth brushed: Patient declined pt. declined The Terrell was educated that poor oral hygiene increases the risk of hospital acquired pneumonia and dental problems like gingivitis and tooth decay. Terrell was educated using their preferr ed method and verbalized understanding. Toileting: Independent ACTIVITY/MOBILIZATION Mobility Status: Independent: Able to stand and step without staff assistance Steady standing balance Gait: [facility] - Highest Level of Mobility achie segundo this shift: 6 - Walked 10 steps or more (walked to restroom ) BRIEF CONFUSION ASSESSMENT METHOD - bCAM Feature 1: Mental Status Change: No change from baseline (bCam negative, no delirium) Feature 2: Inattention Exam Errors: Feature 3: Altered level of Consciousness: Feature 4: Disorganized thinking: bCAM Result: Final Result Negative DETAILED REPOSITIONING Time and Position: Tolerance of Position: Comment: pt. is ind. wit h position changes ENVIRONMENTAL SAFETY MANAGEMENT Implemented safety standards of care: -[place] to unit & environment -Adequate room lighting -Bed in low and locked position -Call light within reach -Personal items within reach -Traffic path in room free of clutter -Non-slip footwear -Upper/half length side rails up for bed mobili ty -Sensory aids within reach -Encourage patient to utilize sensory support GENITOURINARY Elimination: Continent ORAL INTAKE (PERCENTAGE OF MEAL EATEN) Snacks: % Consumed/Comment: fresh fluids at bedside and HS snack provided Pain DVPRS Scale Location: back Defense and Veterans Pain Rating Scale (DVPRS): Pain Score: 3 Patient's acceptable pain goal: Pain Alleviating Interventions: Medication, see ROSENDO Gordon /emely/ FRANCINE MILLS Staff Nurse Signed: 12/11/2021 19:49 Dec 11, 2021 06:41 NURSING INPATIENT NOTE: ARTURO TOVAR [place] LOCAL TITLE: MEAES NURSING FREQUENT DOCUMENTATI ON [facility] STANDARD TITLE: NURSING INPATIENT NOTE DATE OF NOTE: DEC 11, 2021@18:41 ENTRY DATE: DEC 11, 2021@18:41:19 AUTHOR: ARTURO TOVAR EXP COSIGNER: URGENCY: STATUS: COMPLETED Version 2.4 Charting in accordance with ME APPROVED ENTERPRI SE STANDARD (VAAES) ACUTE INPATIENT/REHABILITATION KENDRICK SING ADMISSION SCREENING, ASSESSMENT, AND STANDARDS OF CARE ENVIRONMENTAL SAFETY MANAGEMENT Implemented safety standards of care: -[place] to unit & environment -Adequate room lighting -Bed in low and locked position -Call light within reach -Personal items within reach -Traffic path in room free of clutter -Non-slip footwear -Upper/half length side rails up for bed mobili ty -Sensory aids within reach -Encourage patient to utilize sensory support /es/ ARTURO TOVAR RN Signed: 12/11/2021 18:41 Dec 11, 2021 05:47 NURSING INPATIENT NOTE: [facility]: [facility] NURSING FREQUENT DOCUMENTATI ON [facility]OC STANDARD TITLE: NURSING INPATIENT NOTE DATE OF NOTE: DEC 11, 2021@17:47 ENTRY DATE: DEC 11, 2021@17:47:13 AUTHOR: ARTURO TOVAR EXP COSIGNER: URGENCY: STATUS: COMPLETED Version 2.4 Charting in accordance with ME APPROVED ENTERPRI SE STANDARD (MEAES) ACUTE INPATIENT/REHABILITATION KENDRICK SING ADMISSION SCREENING, ASSESSMENT, AND STANDARDS OF CARE BRIEF CONFUSION ASSESSMENT METHOD - bCAM Feature 1: Mental Status Change: No change from baseline (bCam negative, no delirium) Feature 2: Inattention Exam Errors: 0-1 error ( bCam negative, no delirium) Feature 3: Altered level of Consciousness: RASS = 0, alert and calm Feature 4: Disorganized thinkin errors bCAM Result: Final Result Negative /es/ ARTURO B LA MARS Signed: 12/11/2021 17:47 Dec 11, 2021 05:47 NURSING INPATIENT NOTE: ARTURO OTVAR [place] PM LOCAL TITLE: VAAES NURSING FREQUENT DOCUMENTATI ON [facility] STANDARD TITLE: NURSING INPATIENT NOTE DATE OF NOTE: DEC 11, 2021@17:47 ENTRY DATE: DEC 11, 2021@17:47:57 AUTHOR: ARTURO TOVAR EXP COSIGNER: URGENCY: STATUS: COMPLETED Version 2.4 Charting in accordance with ME APPROVED ENTERPRI SE STANDARD (VAAES) ACUTE INPATIENT/REHABILITATION KENDRICK SING ADMISSION SCREENING, ASSESSMENT, AND STANDARDS OF CARE ORAL INTAKE (PERCENTAGE OF MEAL EATEN) Dinner: 76% - 100% /emely/ ARTURO TOVAR RN Signed: 12/11/2021 17:48 Dec 11, 2021 04:07 NURSING INPATIENT NOTE: ARTURO TOVAR [place] LOCAL TITLE: VAAES NURSING FREQUENT DOCUMENTATI ON [facility] STANDARD TITLE: NURSING INPATIENT NOTE DATE OF NOTE: DEC 11, 2021@16:07 ENTRY DATE: DEC 11, 2021@16:07:46 AUTHOR: ARTURO TOVAR EXP COSIGNER: URGENCY: STATUS: COMPLETED Version 2.4 Charting in accordance with ME APPROVED ENTERPRI SE STANDARD (VAAES) ACUTE INPATIENT/REHABILITATION KENDRICK SING ADMISSION SCREENING, ASSESSMENT, AND STANDARDS OF CARE ENVIRONMENTAL SAFETY MANAGEMENT Implemented safety standards of care: -[place] to unit & environment -Adequate room lighting -Bed in low and locked position -Call light within reach -Personal items within reach -Traffic path in room free of clutter -Non-slip footwear -Upper/half length side rails up for bed mobili ty -Sensory aids within reach -Encourage patient to utilize sensory support /es/ ARTRUO TOVAR RN Signed: 12/11/2021 16:08 Dec 11, 2021 01:57 NURSING INPATIENT NOTE: ARTURO TOVAR [place] LOCAL TITLE: VAAES ACUTE INPATIENT NSG SHIFT SESSMENT [facility] STANDARD TITLE: NURSING INPATIENT NOTE DATE OF NOTE: DEC 11, 2021@13:57 ENTRY DATE: DEC 11, 2021@13:57:23 AUTHOR: ARTURO TOVAR EXP COSIGNER: URGENCY: STATUS: COMPLETED Version 2.2 Charting in accordance with ME APPROVED ENTERPRI SE STANDARD (VAAES) ACUTE INPATIENT/REHABILITATION KENDRICK SING ADMISSION SCREENING, ASSESSMENT, AND STANDARDS OF CARE REASSESSMENT PAIN ASSESSMENT Are you currently experiencing pain? No Pain Score: 0 NEUROLOGICAL Neurological Orientation: Oriented x4 Level of Consciousness (AVPU): Alert = Appears aware of and responsive to the environment on their own. Follows commands, open eyes spontaneously, and tract objects. Affect/behavior: Cooperative Calm NEUROMUSCULAR/NEUROVASCULAR EXTREMITIES ASSESSM ENT Strength: Nursing Clinical Director Bilateral: Strong Upper Extremity Bilateral: Full strength Lower Extremity Bilateral: Full strength Sensation: Upper Extremity Sensation Bilateral: Intact Lower Extremity Sensation Bilateral: Intact Temperature: Upper Extremity Temperature Bilateral: Warm Lower Extremity Temperature Bilateral: Warm CARDIOVASCULAR Heart Sounds: Normal (S1S2) Heart Rate/Rhythm (without hall monitor): Irregular Capillary Refill: All 4 extremities, less than or equal to 3 seco nds. Peripheral Pulses: All 4 extremities, 3+ normal. Edema: None Cardiovascular - Embolism Prevention: Comment: lovenox as ordered sq, daily RESPIRATORY Respirations: Unlabored Pattern: Regular Breath Sounds Auscultated: Anterior and posterior GASTROINTESTINAL Elimination: Continent Abdominal Description: Rounded Palpation: Bowel Sounds: RUQ: Active LUQ: Active RLQ: Active LLQ: Active GENITOURINARY Elimination: Continent INTEGUMENTARY/SKIN/WOUND - (INCLUDING NATE) SEE NOTE: VAAES SKIN INPECTION/ASSESSMENT IV LINES Peripheral IV: Line #1: Assessment: Location: Left, Antecubital Gauge: 20 Dressing Condition: Clean, dry, intact Site Condition: No redness, swelling, pain Line Status: Capped Flushed /es/ ARTURO TOVAR RN Signed: 12/11/2021 14:07 Dec 11, 2021 01:05 NURSING NOTE: ARTURO TOVAR [place] LOCAL TITLE: VAAES NSG IV INSERTION AND MAINTEN ANCE [facility] STANDARD TITLE: NURSING NOTE DATE OF NOTE: DEC 11, 2021@13:05 ENTRY DATE: DEC 11, 2021@13:05:55 AUTHOR: ARTURO TOVAR EXP COSIGNER: URGENCY: STATUS: COMPLETED Version 2.2 Charting in accordance with ME APPROVED ENTERPRI SE STANDARD (VAAES) ACUTE INPATIENT/REHABILITATION KENDRICK SING ADMISSION SCREENING, ASSESSMENT, AND STANDARDS OF CARE IV Line Insertion and Maintenance Peripheral IV Line #1: Assessment: Location: Left, Antecubital Gauge: 20 Dressing Condition: Clean, dry, intact Site Condition: No redness, swelling, pain Line Status: Capped Flushed /es/ ARTURO TOVAR RN Signed: 12/11/2021 13:06 Dec 11, 2021 12:39 NURSING INPATIENT NOTE: ARTURO TOVAR [place] PM LOCAL TITLE: [facility] NURSING FREQUENT DOCUMENTATI ON [facility] STANDARD TITLE: NURSING INPATIENT NOTE DATE OF NOTE: DEC 11, 2021@12:39 ENTRY DATE: DEC 11, 2021@12:39:42 AUTHOR: ARTURO TOVAR EXP COSIGNER: URGENCY: STATUS: COMPLETED Version 2.4 Charting in accordance with [facility] ENTERPRI SE STANDARD (MEAES) ACUTE INPATIENT/REHABILITATION KENDRICK SING ADMISSION SCREENING, ASSESSMENT, AND STANDARDS OF CARE ORAL INTAKE (PERCENTAGE OF MEAL EATEN) Lunch: 76% - 100% /es/ ARTURO Heather TOVAR RN Signed: 12/11/2021 12:40 Dec 11, 2021 10:27 INTERNAL MEDICINE NOTE: ASHLY TODD Raven [facility] TITLE: General Internal Medicine Note [facility] STANDARD TITLE: INTERNAL MEDICINE NOTE DATE OF NOTE: DEC 11, 2021@10:27 ENTRY DATE: DEC 11, 2021@10:27:40 AUTHOR: ASHLY TODD COSIGNER: ALVARO VARGHESE URGENCY: STATUS: COMPLETED General Internal Medicine Note Has ADDENDA Date/Time of Admission: Nov 16:44 Allergies: LISINOPRIL Remote Allergy/ADR: RART - Remote Allergy/ADR No Remote Allergy/ADR Data available for this pa tient 24 hour events/subjective: Patient had no overnight jeffrey nts. He describes continued back pain that improves upon sitting and lying down. Bowel movem ents are non-bloody and loose. He uses assited walking device. Active Inpatient Medications (excluding Supplies ): Active Inpatient Medications Status 1) ALBUTEROL INHL,ORAL 2 PUFFS INHALATION ORAL Q ID PRN ACTIVE for breathing 2) AMLODIPINE TAB 5MG PO QD please hold if systo lic <90 ACTIVE 3) AMOXICILLIN/CLAVULANATE TAB 1 TABLET PO BID P ills ACTIVE can be crushed into applesauce or substance of similar consistency. stop date 12/12 PM. 4) CARBOXYMETHYLCELLULOSE 0.5% SOLN,OPH ONE DROP OU QID ACTIVE 5) CHOLECALCIFEROL TAB 10MCG PO QD ACTIVE 6) DICLOFENAC 1% GEL,TOP 4 GRAMS TO LOWER EXTREM ITIES ACTIVE TOP QID PRN for pain/inflammation 7) ENOXAPARIN INJ 40MG/0.4ML SQ QD ACTIVE 8) FAMOTIDINE TAB 10MG PO BID ACTIVE 9) LOSARTAN TAB 12.5MG PO QD please hold if syst olic ACTIVE <90 10) OLODATEROL/TIOTROPIUM INHL,ORAL 2 PUFFS INHA LATION ACTIVE ORAL QD 11) OMEPRAZOLE CAP,EC 20MG PO BID-AC ACTIVE 12) SERTRALINE TAB 150MG PO QD ACTIVE Physical Exam: Vital signs (include range): DATE/TIME TEMP PULSE RESP BP PAIN WEIGHT 12/11/21 @ 0558 0 12/11/21 @ 0521 97.4 98 16 126/74 0 231.9 12/10/21 @ 2100 98.6 94 18 122/75 0 Ins/Outs: Weight: 231.9 lb [105.19 kg] (12/11/2021 05:21) General: NAD, laying in bed Head and Neck: supple neck Respiratory: Lungs sounds improved in apex of ri ght upper lobe and absent in right lower lobe, no rhonchi appreciated in left field today. Cardiovascular: RRR, no MRG Abdomen/GI/: protuberant but nondisten ded, hyperactive bowel sounds,soft and non tender Musculoskeletal:no bony deformities Neurological: EOMI, II-XII grossly intact Psychiatric/Mental Status: appropiate affect Diagnostics Labs: HEMATOLOGY: 12/11/2021 06:26 12/10/2021 08:05 12/09/2021 07:09 \ 11.2 / \ 11.6 / \ 11.3 / 5.8 ------ 149 7.0 ------ 164 7.1 ------ 158 / 37.7 \ / 37.5 \ / 35.8 \ PMN: 74.8% LYMPH: 15.5% MONO: 7.7% EOS: 1.0% BAS O: 0.3% BANDS: 0.7% A.9 L MCV: 86.3 RDW: 17.2 H MCHC: 29.7 L MCH: 25.6 L RETICULOCYTES (%) AUTOMATED: 1.23 RETABS: 0.052 @ 12/07/2021 06:00 CHEMISTRY: Dec 11, 2021@06:43 Dec 10, 2021@08:05 137 108 / 139 107 8 / - 144 4.3 20 \ Gap: 13` 3.7 24 0.78 \ Gap : 12` ` - corrected for albumin Ref: @ 12/06/2021 12:00 Imagin12/10/2021 CT ABD & PELVIS WITHOUT CONTRAST CPT Code: 39132 Interpreting Staff: RADIOLOGY,OUTSIDE Exam Case Number: [id number] Exam Status: COMPLETE Rpt Status: VERIFIED Technologist: ROYAL SOLOMON RISTOP FINDINGS: The absence of oral and intravenous contrast li mits the exam. Lung Bases: New incompletely imaged loculated p leural fluid with surrounding pleural thickening in the post erior right base. Trace pericardial fluid. Liver: Mildly enlarged, measuring 21 cm, which has increased since the prior exam. Multilobular gastrohepati c soft tissue, which is new since the prior exam and difficult to separate from the caudate lobe without intravenous contr ast. Biliary: Limited evaluation of the gallbladder due to contraction and streak artifact related to ryan um within adjacent colon. Spleen: Mildly enlarged, measuring 13 cm, [...] of the duodenum. Residual contrast within the colo n. An apparent right hemicolectomy has been performed since th e prior exam. Mild fat stranding adjacent to the hepatic flex ure and liver may represent scarring or nonspecific trace asc ites. No bowel obstruction. Status post midline anterior abdom inal wall hernia repair with mesh placement. Bones: Multilevel degenerative change within th e spine. Unchanged minimal L4-L5 anterolisthesis. No valerie picious bone lesions. Other: Unchanged small fat-containing bilateral inguinal [...] adrenal nodule. Attention to this on the f ollow-up MRI is suggested. 4. Mild hepatosplenomegaly. 5. Shotty nonspecific celiac and portocaval lym ph nodes. Assessment: 71 year old MALE with a history of Stage IIIa adenocarcinoma EGFR/ALK negative s/p chemotherapy/radiation/d ervalumab, COPD, diverticulitis s/p partial colonic resection, chronic low back pain s/p discectomy here for a 6 month history of 70 pound unintentional weight loss, fatigue, weakne ss, anorexia, odynophagia, myalgias, intermittent diarrhea and gene ral malaise alongside a 10 day history acutely of increased sputum production, SOB, and recent COVID+ here with aspiration penumonia. Patient continues to improve from respiratory pe rspective, now on oral antibiotics for aspiration p neumonia. He completed his course of remdesiver, no longer on active COVID treatment or precautions per ID recommendations. MBS showed significant esophage al dysfunction with large amount of barium remai jerome in patient's esophagus. This is concerning for ongoing risk for aspiration. Have reached out to GI consultants about EGD, planned for next week. Per their request, obtain ed CT abdomen wo contrast first to better characterize GI anatomy prior to the EGD. CT scan review revealed new left adrenal ma ss which will be followed outpatient with PET scan. Per TECHNICAL SUPPORT AGENT recommendations, [place] also work with ENT consultants to assess for vocal chord pathology although this seems less likely to be the underlying cause of his dysphagia and ongoing silent aspiration. Of note, patient's acute presentation is best explained by a silent aspiration event with subsequent development of aspiration pneumonia however, he does require close follow up with his oncologist (dr. Cameron) at discharge due to possible progression of lung adenocarcinoma and new left adrenal mass. PLAN: #SOB #aspiration PNA -S/p Ceftriaxone 2 g/day + metronidazole 500 mg IV/PO q 8(12/06 - 12/09) -Continue Augmentin 875/125 PO BID until 12/12 to complete 7 day course -appreciate pulmonology consult -appreciate ID consult #COVID+, resolved -Remdesivir 200 mg IV once(12/06) and 100 mg IV q d(12/07-12/09) -Off precautions 12/09 -appreciate ID recs #ODYNOPHAGIA -Appreciate TECHNICAL SUPPORT AGENT consult -CT abdomen wo contrast per GI -EGD this week, appreciate GI consult -Continue PPI -Added H2 raquel (famotidine 10 mg BID) #COPD -home inhaler regimen #HTN -continue home amlodipine and losartan #GERD -omeprazole 20 mg BID -famotidine 10 mg BID #depression -continue home sertraline #Chronic Back Pain -start scheduled Tylenol #other home meds -continue cholecalciferol -continue diclofenac gel VTE prophylaxis: [X] Lovenox 40mg SC daily [ ] Lovenox 30mg SC daily (CrCl <30 but not on HD) [ ] Heparin 5000units SC TID (ESRD or other Soniya enox contraindication) [ ] patient declines VTE pharmacologic prophyla xis despite discussion of VTE risk [ ] Other pharmacologic VTE prophylaxis: [ ] Venodynes applied due to: [ ] pharmacologic prophylaxis contraindicated d ue to: [ ] high risk for VTE due to: /emely/ ASHLY TODD Resident Physician Signed: 12/11/2021 10:34 /emely/ ALVARO VARGHESE MD DIRECTOR OF AMBULATORY CARDIOLOGY Cosigned: 12/12/2021 08:49 12/12/2021 ADDENDUM STATUS: COMPLETED Mr Meek discussed and seen together on rounds. I agree with evaluation, assessment and plan as outlined by Dr. Todd. /emely/ ALVARO VARGHESE MD DIRECTOR OF AMBULATORY CARDIOLOGY Signed: 12/12/2021 08:49 Dec 11, 2021 10:26 NURSING NOTE: ARTURO TOVAR LOCAL TITLE: [facility] SKIN INSPECTION/ASSESSMENT [facility] STANDARD TITLE: NURSING NOTE DATE OF NOTE: DEC 11, 2021@10:26 ENTRY DATE: DEC 11, 2021@10:26:46 AUTHOR: ARTURO TOVAR EXP COSIGNER: URGENCY: STATUS: COMPLETED SKIN REINSPECTION/REASSESSMENT SKIN INSPECTION: Skin Color: Usual for ethnicity Skin Temperature: Warm Skin Moisture: Normal Skin Turgor: Elastic (normal/immediate) Ante Skin Assessment: The patient's Nate Scale Score is 20. The pat ient is considered not at risk for development of pressure ulcers/injurie s. Sensory perception -- ability to respond meanin gfully to pressure-related discomfort No impairment. Moisture -- degree to which skin is exposed to moisture Rarely moist. Activity -- ability to change and control body position Walks occasionally. Mobility -- ability to change and control body position Slightly limited. Nutrition -- usual food intake patterns Adequate. Friction and shear No apparent problem. INTERVENTIONS: The pressure injury interventions were not need ed - patient/resident is not at risk. SKIN INTEGRITY: Intact /emely/ ARTURO TOVAR RN Signed: 12/11/2021 10:27 Dec 11, 2021 08:48 NURSING INPATIENT NOTE: ARTURO TOVAR LOCAL TITLE: [facility] ACUTE INPATIENT NSG SHIFT SESSMENT [facility]OC STANDARD TITLE: NURSING INPATIENT NOTE DATE OF NOTE: DEC 11, 2021@08:48 ENTRY DATE: DEC 11, 2021@08:49 AUTHOR: ARTURO TOVAR EXP COSIGNER: URGENCY: STATUS: COMPLETED Version 2.2 Charting in accordance with [facility] (MEAES) ACUTE INPATIENT/REHABILITATION NURSING ADMISSION PENNY CANO, ASSESSMENT, AND STANDARDS OF CARE ASSESSMENT HANDOFF Bedside report and handoff completed Safety check completed PAIN ASSESSMENT Are you currently experiencing pain? No Pain Score: 0 CHAVEZ FALL SCALE & TIPS PROGRAM Chavez Fall Scale: The Chavez Fall scale was performed and score wa s 85. This is indicative of high risk for falls. History of falling in past 3 months? Yes Secondary diagnosis: Yes Ambulatory aid: Crutches/cane(s)/walker Intravenous therapy/Heparin lock: Yes Gait/Transferring: Weakness Mental Status: Oriented to own ability/knows own limitations Fall Tailoring Interventions for Patient Safety (TIPS) Fall TIPS initiated with patient: Yes Fall TIPS reviewed with patient: Yes ENVIRONMENTAL SAFETY MANAGEMENT Implemented safety standards of care: -[place] to unit & environment -Adequate room lighting -Bed in low and locked position -Call light within reach -Personal items within reach -Traffic path in room free of clutter -Non-slip footwear -Upper/half length side rails up for bed mobili ty -Sensory aids within reach -Encourage patient to utilize sensory support NEUROLOGICAL Neurological Orientation: Oriented x4 Level of Consciousness (AVPU): Alert = Appears aware of and responsive to the environment on their own. Follows commands, open eyes spontaneously, and tract objects. Affect/behavior: Cooperative Calm NEUROMUSCULAR/NEUROVASCULAR EXTREMITIES ASSESSM ENT Strength: Nursing Clinical Director Bilateral: Strong Upper Extremity Bilateral: Full strength Lower Extremity Bilateral: Full strength Sensation: Upper Extremity Sensation Bilateral: Intact Lower Extremity Sensation Bilateral: Intact Temperature: Upper Extremity Temperature Bilateral: Warm Lower Extremity Temperature Bilateral: Warm CARDIOVASCULAR Heart Sounds: Normal (S1S2) Heart Rate/Rhythm (without hall monitor): Irregular Capillary Refill: All 4 extremities, less than or equal to 3 seco nds. Peripheral Pulses: All 4 extremities, 3+ normal. Edema: None Cardiovascular - Embolism Prevention: Comment: lovenox sq 40 mg daily RESPIRATORY Respirations: Unlabored Pattern: Regular Breath Sounds Auscultated: Anterior and posterior Left Upper Lobe: Clear Right Upper Lobe: Clear Right Middle Lobe: Clear Left Lower Lobe: Clear Right Lower Lobe: Clear GASTROINTESTINAL Bowel movement reported by patient-unwitnessed Elimination: Continent Abdominal Description: Distended Palpation: Soft, Non-tender Bowel Sounds: RUQ: Active LUQ: Active RLQ: Active LLQ: Active GENITOURINARY Elimination: Continent INTEGUMENTARY/SKIN/WOUND - (INCLUDING NATE) SEE NOTE: VAAES SKIN INPECTION/ASSESSMENT ACTIVITIES OF DAILY LIVING Hygiene ADLs: Oral Care: Non-ventilator patient: Patient dentures/partial plates cleaned: Patien t declined Pt edentulous, IV LINES Peripheral IV: Line #1: Assessment: Location: Left, Antecubital Gauge: 20 Dressing Condition: Clean, dry, intact Site Condition: No redness, swelling, pain Line Status: Capped Flushed PSYCHOSOCIAL Type of Emotional Support Provided: 1:1 discussion, Treatment discussion ADULT EDUCATION Comment: Instructed pt for the use of the IS, an d purpose of it. /emely/ ARTURO TOVAR RN Signed: 12/11/2021 08:54 Dec 11, 2021 07:55 NURSING NOTE: ARTURO TOVAR AM LOCAL TITLE: NURSING PROGRESS OTHER NOTE [facility] STANDARD TITLE: NURSING NOTE DATE OF NOTE: DEC 11, 2021@07:55 ENTRY DATE: DEC 11, 2021@07:55:14 AUTHOR: ARTURO TOVAR EXP COSIGNER: URGENCY: STATUS: COMPLETED Masimo/Safety Net YES - Applied site /charmaine TOVAR RN Signed: 12/11/2021 07:55 Dec 11, 2021 07:51 NURSING INPATIENT NOTE: ARTURO TOVAR AM LOCAL TITLE: VAAES NURSING FREQUENT DOCUMENTATI ON [facility] STANDARD TITLE: NURSING INPATIENT NOTE DATE OF NOTE: DEC 11, 2021@07:51 ENTRY DATE: DEC 11, 2021@07:51:40 AUTHOR: ARTURO TOVAR EXP COSIGNER: URGENCY: STATUS: COMPLETED Version 2.4 Charting in accordance with [facility] ENTERPRI SE STANDARD (MEAES) ACUTE INPATIENT/REHABILITATION KENDRICK SING ADMISSION SCREENING, ASSESSMENT, AND STANDARDS OF CARE ORAL INTAKE (PERCENTAGE OF MEAL EATEN) Breakfast: 51% - 75% /emely/ ARTURO TOVAR RN Signed: 12/11/2021 07:52 Dec 11, 2021 07:09 NURSING NOTE: FRANCINE MILLS CB, AM LOCAL TITLE: NURSING PROGRESS OTHER NOTE [facility] STANDARD TITLE: NURSING NOTE DATE OF NOTE: DEC 11, 2021@07:09 ENTRY DATE: DEC 11, 2021@07:09:28 AUTHOR: FRANCINE MILLS CB EXP COSIGNER: URGENCY: STATUS: COMPLETED pt. is sitting up on the edge of the bed workin g on eating breakfast. pt. is ind. with feeding himself /emely/ FRANCINE MILLS Staff Nurse Signed: 12/11/2021 07:10 Dec 11, 2021 06:36 NURSING INPATIENT NOTE: FRANCINE MILLS CB [employer] [place] LOCAL TITLE: [facility] NURSING FREQUENT DOCUMENTATI ON [facility] STANDARD TITLE: NURSING INPATIENT NOTE DATE OF NOTE: DEC 11, 2021@06:36 ENTRY DATE: DEC 11, 2021@06:37:02 AUTHOR: FRANCINE MILLS CB EXP COSIGNER: URGENCY: STATUS: COMPLETED Version 2.4 Charting in accordance with [facility] ENTERPRI SE STANDARD ([facility]) ACUTE INPATIENT/REHABILITATION KENDRICK SING ADMISSION SCREENING, ASSESSMENT, AND STANDARDS OF CARE ENVIRONMENTAL SAFETY MANAGEMENT Implemented safety standards of care: -[place] to unit & environment -Adequate room lighting -Bed in low and locked position -Call light within reach -Personal items within reach -Traffic path in room free of clutter -Non-slip footwear -Upper/half length side rails up for bed mobili ty -Sensory aids within reach -Encourage patient to utilize sensory support visual check, pt. is resting in bed watc edilma TV. pt. has no needs at this time /emely/ FRANCINE MILLS Staff Nurse Signed: 12/11/2021 06:37 Dec 11, 2021 05:55 NURSING INPATIENT NOTE: FRANCINE MILLS CB [employer] [place] AM LOCAL TITLE: VAAES NURSING FREQUENT DOCUMENTATI ON [facility] STANDARD TITLE: NURSING INPATIENT NOTE DATE OF NOTE: DEC 11, 2021@05:55 ENTRY DATE: DEC 11, 2021@05:55:42 AUTHOR: FRANCINE MILLS CB COSIGNER: URGENCY: STATUS: COMPLETED Version 2.4 Charting in accordance with ME APPROVED ENTERPRI SE STANDARD (VAAES) ACUTE INPATIENT/REHABILITATION NURSING ADMISSION SCREE JEROME, ASSESSMENT, AND STANDARDS OF CARE ACTIVITIES OF DAILY LIVING Hygiene ADLs: Eating: Independent Toileting: Independent ACTIVITY/MOBILIZATION Mobility Status: Independent: Able to stand and step without staff assistance Steady standing balance Gait: Steady [facility] - Highest Level of Mobility achie segundo this shift: 6 - Walked 10 steps or more (walked to restroom ) DETAILED REPOSITIONING Time and Position: Tolerance of Position: Comment: pt. is ind. wit h position changes in bed ENVIRONMENTAL SAFETY MANAGEMENT Implemented safety standards of care: -[place] to unit & environment -Adequate room lighting -Bed in low and locked position -Call light within reach -Personal items within reach -Traffic path in room free of clutter -Non-slip footwear -Upper/half length side rails up for bed mobili ty -Sensory aids within reach -Encourage patient to utilize sensory support GASTROINTESTINAL Last bowel movement: 12/11/2021 Bowel movement reported by patient-unwitnessed Stool: Description: Semi-formed Color: Brown Amount: Medium Elimination: Continent GENITOURINARY Elimination: Continent Color/Characteristic: Arlin ORAL INTAKE (PERCENTAGE OF MEAL EATEN) Snacks: % Consumed/Comment: fresh fluids at bedside Pain DVPRS Scale Location: [facility] Pain Rating Scale (DVPRS): Pain Score: 0 Patient's acceptable pain goal: Pain Alleviating Interventions: /emely/ FRANCINE MILLS Staff Nurse Signed: 12/11/2021 05:58 Dec 11, 2021 05:48 NURSING INPATIENT NOTE: FRANCINE MILLS [place] AM LOCAL TITLE: VAAES ACUTE INPATIENT NSG SHIFT SESSMENT [facility] STANDARD TITLE: NURSING INPATIENT NOTE DATE OF NOTE: DEC 11, 2021@05:48 ENTRY DATE: DEC 11, 2021@05:48:16 AUTHOR: FRANCINE MILLS CB EXP COSIGNER: URGENCY: STATUS: COMPLETED Version 2.2 Charting in accordance with [facility] APPROVED ENTERPRI SE STANDARD (VAAES) ACUTE INPATIENT/REHABILITATION NURSING ADMISSION SCREE JEROME, ASSESSMENT, AND STANDARDS OF CARE REASSESSMENT NEUROLOGICAL Neurological Orientation: Oriented x4 Level of Consciousness (AVPU): Alert = Appears aware of and responsive to the environment on their own. Follows commands, open eyes spontaneously, and tract objects. Affect/behavior: Cooperative Calm NEUROMUSCULAR/NEUROVASCULAR EXTREMITIES ASSESSM ENT Strength: Nursing Clinical Director Bilateral: Strong Upper Extremity Bilateral: Full strength Lower Extremity Bilateral: Full strength Sensation: Upper Extremity Sensation Bilateral: Intact Lower Extremity Sensation Bilateral: Decreased Temperature: Upper Extremity Temperature Bilateral: Warm Lower Extremity Temperature Bilateral: Warm RESPIRATORY Respirations: Unlabored Pattern: Regular Breath Sounds Auscultated: Anterior and posterior Right Upper Lobe: Clear Left Upper Lobe: Clear Right Middle Lobe: Clear, Diminished Right Lower Lobe: Clear, Diminished Left Lower Lobe: Clear, Diminished GASTROINTESTINAL Palpation: Soft, Non-tender Bowel Sounds: RUQ: Active LUQ: Active RLQ: Active LLQ: Active GENITOURINARY Elimination: Continent /es/ FRANCINE IMLLS Staff Nurse Signed: 12/11/2021 05:48 Dec 11, 2021 05:48 NURSING NOTE: FRANCINE MILLS [place] LOCAL TITLE: VAAES NSG IV INSERTION AND MAINTEN ANCE [facility] STANDARD TITLE: NURSING NOTE DATE OF NOTE: DEC 11, 2021@05:48 ENTRY DATE: DEC 11, 2021@05:48:53 AUTHOR: FRANCINE MILLS CB EXP COSIGNER: URGENCY: STATUS: COMPLETED Version 2.2 Charting in accordance with [facility] STANDARD (MEAES) ACUTE INPATIENT/REHABILITATION KENDRICK SING ADMISSION SCREENING, ASSESSMENT, AND STANDARDS OF CARE IV Line Insertion and Maintenance Peripheral IV Line #1: Assessment: Location: Left, Forearm Gauge: 20 Dressing Condition: Clean, dry, intact Transparent dressing Site Condition: No redness, swelling, pain Line Status: Ulises /emely/ FRANCINE MILLS Staff Nurse Signed: 12/11/2021 05:49 Dec 11, 2021 04:56 NURSING INPATIENT NOTE: FRANCINE MILLS CB, AM LOCAL TITLE: VAAES NURSING FREQUENT DOCUMENTATI ON [facility] STANDARD TITLE: NURSING INPATIENT NOTE DATE OF NOTE: DEC 11, 2021@04:56 ENTRY DATE: DEC 11, 2021@04:56:58 AUTHOR: FRANCINE MILLS CB EXP COSIGNER: URGENCY: STATUS: COMPLETED Version 2.4 Charting in accordance with [place] APPROVED ENTERPRI SE STANDARD (VAAES) ACUTE INPATIENT/REHABILITATION KENDRICK SING ADMISSION SCREENING, ASSESSMENT, AND STANDARDS OF CARE ENVIRONMENTAL SAFETY MANAGEMENT Implemented safety standards of care: -[place] to unit & environment -Adequate room lighting -Bed in low and locked position -Call light within reach -Personal items within reach -Traffic path in room free of clutter -Non-slip footwear -Upper/half length side rails up for bed mobili ty -Sensory aids within reach -Encourage patient to utilize sensory support visual checks being done every 20-40 min. pt. imlls s been resting quietly in bed with his eyes closed /emely/ FRANCINE MILLS Staff Nurse Signed: 12/11/2021 04:57 Dec 11, 2021 01:52 NURSING INPATIENT NOTE: FRANCINE MILLS CB [facility] TITLE: [facility] NURSING FREQUENT DOCUMENTATI ON [facility] STANDARD TITLE: NURSING INPATIENT NOTE DATE OF NOTE: DEC 11, 2021@01:52 ENTRY DATE: DEC 11, 2021@01:52:50 AUTHOR: FRANCINE MILLS CB EXP COSIGNER: URGENCY: STATUS: COMPLETED Version 2.4 Charting in accordance with [place] APPROVED ENTERPRI SE STANDARD (VAAES) ACUTE INPATIENT/REHABILITATION KENDRICK SING ADMISSION SCREENING, ASSESSMENT, AND STANDARDS OF CARE ENVIRONMENTAL SAFETY MANAGEMENT Implemented safety standards of care: -[place] to unit & environment -Adequate room lighting -Bed in low and locked position -Call light within reach -Personal items within reach -Traffic path in room free of clutter -Non-slip footwear -Upper/half length side rails up for bed mobili ty -Sensory aids within reach -Encourage patient to utilize sensory support visual checks being done every 20-40 min. pt. mills s been resting quietly in bed with his eyes closed /emely/ FRANCINE MILLS Staff Nurse Signed: 12/11/2021 01:53 Dec 11, 2021 12:05 NURSING INPATIENT NOTE: FRANCINE MILLS [place] AM LOCAL TITLE: MEAES NURSING FREQUENT DOCUMENTATI ON [facility] STANDARD TITLE: NURSING INPATIENT NOTE DATE OF NOTE: DEC 11, 2021@00:05 ENTRY DATE: DEC 11, 2021@00:05:15 AUTHOR: FRANCINE MILLS CB EXP COSIGNER: URGENCY: STATUS: COMPLETED Version 2.4 Charting in accordance with [place] APPROVED ENTERPRI SE STANDARD (MEAES) ACUTE INPATIENT/REHABILITATION KENDRICK SING ADMISSION SCREENING, ASSESSMENT, AND STANDARDS OF CARE ENVIRONMENTAL SAFETY MANAGEMENT Implemented safety standards of care: -[place] to unit & environment -Adequate room lighting -Bed in low and locked position -Call light within reach -Personal items within reach -Traffic path in room free of clutter -Non-slip footwear -Upper/half length side rails up for bed mobili ty -Sensory aids within reach -Encourage patient to utilize sensory support pt. woke by masimo alarm goi ng off. new masimo monitor placed a this time as the one that was on him had stopped working /emely/ FRANCINE MILLS Staff Nurse Signed: 12/11/2021 00:06 Dec 10, 2021 10:15 NURSING INPATIENT NOTE: FRANCINE MILLS [place] PM LOCAL TITLE: VAAES NURSING FREQUENT DOCUMENTATI ON [facility] STANDARD TITLE: NURSING INPATIENT NOTE DATE OF NOTE: DEC 10, 2021@22:15 ENTRY DATE: DEC 10, 2021@22:15:17 AUTHOR: FRANCINE MILLS CB EXP COSIGNER: URGENCY: STATUS: COMPLETED Version 2.4 Charting in accordance with [place] APPROVED ENTERPRI SE STANDARD (MEAES) ACUTE INPATIENT/REHABILITATION KENDRICK SING ADMISSION SCREENING, ASSESSMENT, AND STANDARDS OF CARE ENVIRONMENTAL SAFETY MANAGEMENT Implemented safety standards of care: -[place] to unit & environment -Adequate room lighting -Bed in low and locked position -Call light within reach -Personal items within reach -Traffic path in room free of clutter -Non-slip footwear -Upper/half length side rails up for bed mobili ty -Sensory aids within reach -Encourage patient to utilize sensory support visual check, pt. is resting quietly in bed with his eyes closed /emely/ FRANCINE MILLS Staff Nurse Signed: 12/10/2021 22:15 Dec 10, 2021 09:01 NURSING NOTE: FRANCINE MILLS [place] LOCAL TITLE: VAAES NSG IV INSERTION AND MAINTEN ANCE [facility] STANDARD TITLE: NURSING NOTE DATE OF NOTE: DEC 10, 2021@21:01 ENTRY DATE: DEC 10, 2021@21:01:08 AUTHOR: FRANCINE MILLS CB EXP COSIGNER: URGENCY: STATUS: COMPLETED Version 2.2 Charting in accordance with [facility] STANDARD (MEAES) ACUTE INPATIENT/REHABILITATION KENDRICK SING ADMISSION SCREENING, ASSESSMENT, AND STANDARDS OF CARE IV Line Insertion and Maintenance Peripheral IV Line #1: Assessment: Location: Left, Antecubital Gauge: 20 Dressing Condition: Clean, dry, intact Transparent dressing Site Condition: No redness, swelling, pain Line Status: Capped Flushed Positive blood return /es/ FRANCINE MILLS Staff Nurse Signed: 12/10/2021 21:03 Dec 10, 2021 09:00 NURSING NOTE: FRANCINE MILLS CB LOCAL TITLE: [facility] SKIN INSPECTION/ASSESSMENT [facility] STANDARD TITLE: NURSING NOTE DATE OF NOTE: DEC 10, 2021@21:00 ENTRY DATE: DEC 10, 2021@21:00:38 AUTHOR: FRANCINE MILLS CB EXP COSIGNER: URGENCY: STATUS: COMPLETED SKIN REINSPECTION/REASSESSMENT SKIN INSPECTION: Skin Color: Usual for ethnicity Skin Temperature: Warm Skin Moisture: Normal Skin Turgor: Elastic (normal/immediate) Nate Skin Assessment: The patient's Nate Scale Score is 20. The pat ient is considered not at risk for development of pressure ulcers/injurie s. Sensory perception -- ability to respond meanin gfully to pressure-related discomfort No impairment. Moisture -- degree to which skin is exposed to moisture Rarely moist. Activity -- ability to change and control body position Walks occasionally. Mobility -- ability to change and control body position Slightly limited. Nutrition -- usual food intake patterns Adequate. Friction and shear No apparent problem. INTERVENTIONS: The pressure injury interventions were not need ed - patient/resident is not at risk. SKIN INTEGRITY: Intact /emely/ FRANCINE MILLS Staff Nurse Signed: 12/10/2021 21:00 Dec 10, 2021 08:57 NURSING INPATIENT NOTE: FRANCINE MILLS [place] PM LOCAL TITLE: VAAES ACUTE INPATIENT NSG [facility]IFT [facility] STANDARD TITLE: NURSING INPATIENT NOTE DATE OF NOTE: DEC 10, 2021@20:57 ENTRY DATE: DEC 10, 2021@20:57:39 AUTHOR: FRANCINE MILLS CB EXP COSIGNER: URGENCY: STATUS: COMPLETED Version 2.2 Charting in accordance with [place] APPROVED ENTERPRI SE STANDARD (MEAES) ACUTE INPATIENT/REHABILITATION NURSING ADMISSION PENNY CANO, ASSESSMENT, AND STANDARDS OF CARE ASSESSMENT CHAVEZ FALL SCALE & TIPS PROGRAM Chavez Fall Scale: The Chavez Fall scale was performed and score wa s 35. This is indicative of moderate risk for falls. History of falling in past 3 months? No Secondary diagnosis: Yes Ambulatory aid: None/bedrest/nurse assist Intravenous therapy/Heparin lock: Yes Gait/Transferring: Normal/bed rest/immobile Mental Status: Oriented to own ability/knows own limitations Fall Tailoring Interventions for Patient Safety (TIPS) Fall TIPS initiated with patient: Yes Fall TIPS reviewed with patient: Yes NEUROLOGICAL Neurological Orientation: Oriented x4 Level of Consciousness (AVPU): Alert = Appears aware of and responsive to the environment on their own. Follows commands, open eyes spontaneously, and tract objects. Affect/behavior: Cooperative Calm NEUROMUSCULAR/NEUROVASCULAR EXTREMITIES ASSESSM ENT Strength: Nursing Clinical Director Bilateral: Strong Upper Extremity Bilateral: Full strength Lower Extremity Bilateral: Full strength Sensation: Upper Extremity Sensation Bilateral: Intact Lower Extremity Sensation Bilateral: Decreased Temperature: Upper Extremity Temperature Bilateral: Warm Lower Extremity Temperature Bilateral: Warm RESPIRATORY Respirations: Unlabored Pattern: Regular Breath Sounds Auscultated: Anterior and posterior Right Upper Lobe: Clear Left Upper Lobe: Clear Right Middle Lobe: Clear, Diminished Right Lower Lobe: Clear, Diminished Left Lower Lobe: Clear, Diminished GASTROINTESTINAL Palpation: Soft, Non-tender Bowel Sounds: RUQ: Active LUQ: Active RLQ: Active LLQ: Active GENITOURINARY Elimination: Continent INTEGUMENTARY/SKIN/WOUND - (INCLUDING NATE) SEE NOTE: VAAES SKIN INPECTION/ASSESSMENT PSYCHOSOCIAL Type of Emotional Support Provided: 1:1 discussion, Coping skills discussion, Hospi talization discussion, Ventilation of feelings encouraged /emely/ FRANCINE MILLS Staff Nurse Signed: 12/10/2021 21:00 Dec 10, 2021 08:54 NURSING NOTE: FRANCINE MILLS [place] LOCAL TITLE: NURSING PROGRESS OTHER NOTE [facility] STANDARD TITLE: NURSING NOTE DATE OF NOTE: DEC 10, 2021@20:54 ENTRY DATE: DEC 10, 2021@20:54:21 AUTHOR: FRANCINE MILLS CB EXP COSIGNER: URGENCY: STATUS: COMPLETED Masimo/Safety Net YES - Applied site finger /es/ FRANCINE MILLS Staff Nurse Signed: 12/10/2021 20:54 Dec 10, 2021 08:54 NURSING INPATIENT NOTE: FRANCINE MILLS [place] PM LOCAL TITLE: VAAES NURSING FREQUENT DOCUMENTATI ON [facility] STANDARD TITLE: NURSING INPATIENT NOTE DATE OF NOTE: DEC 10, 2021@20:54 ENTRY DATE: DEC 10, 2021@20:54:44 AUTHOR: FRANCINE MILLS CB EXP COSIGNER: URGENCY: STATUS: COMPLETED Version 2.4 Charting in accordance with [place] APPROVED ENTERPRI SE STANDARD (VAAES) ACUTE INPATIENT/REHABILITATION NURSING ADMISSION HERMINIOE JEROME, ASSESSMENT, AND STANDARDS OF CARE ACTIVITIES OF DAILY LIVING Hygiene ADLs: Eating: Independent Foot Care: Inspection Oral Care: Non-ventilator patient: Patient teeth brushed: Patient declined pt. declined The was educated that poor oral hygiene increases the risk of hospital acquired pneumonia and dental problems like gingivitis and tooth decay. was educated using their preferr ed method and verbalized understanding. Toileting: Independent ACTIVITY/MOBILIZATION Mobility Status: Independent: Gait: [facility] - Highest Level of Mobility achie segundo this shift: 6 - Walked 10 steps or more (walked to restroom ) BRIEF CONFUSION ASSESSMENT METHOD - bCAM Feature 1: Mental Status Change: No change from baseline (bCam negative, no delirium) Feature 2: Inattention Exam Errors: Feature 3: Altered level of Consciousness: Feature 4: Disorganized thinking: bCAM Result: Final Result Negative DETAILED REPOSITIONING Time and Position: Tolerance of Position: Comment: pt. is ind. wit h position changes ENVIRONMENTAL SAFETY MANAGEMENT Implemented safety standards of care: -[place] to unit & environment -Adequate room lighting -Bed in low and locked position -Call light within reach -Personal items within reach -Traffic path in room free of clutter -Non-slip footwear -Upper/half length side rails up for bed mobili ty -Sensory aids within reach -Encourage patient to utilize sensory support GENITOURINARY Elimination: Continent ORAL INTAKE (PERCENTAGE OF MEAL EATEN) Snacks: % Consumed/Comment: fresh fluids at bedside and HS snack provided Pain DVPRS Scale Location: [facility] Pain Rating Scale (DVPRS): Pain Score: 0 Patient's acceptable pain goal: Pain Alleviating Interventions: harshad/ FRANCINE MILLS Staff Nurse Signed: 12/10/2021 20:57 Dec 10, 2021 05:33 NURSING INPATIENT NOTE: ARTURO TOVAR [place] PM LOCAL TITLE: [facility] NURSING FREQUENT DOCUMENTATI ON [facility] STANDARD TITLE: NURSING INPATIENT NOTE DATE OF NOTE: DEC 10, 2021@17:33 ENTRY DATE: DEC 10, 2021@17:33:53 AUTHOR: ARTURO TOVAR EXP COSIGNER: URGENCY: STATUS: COMPLETED Version 2.4 Charting in accordance with [facility] ENTERPRI SE STANDARD (VAAES) ACUTE INPATIENT/REHABILITATION KENDRICK SING ADMISSION SCREENING, ASSESSMENT, AND STANDARDS OF CARE BRIEF CONFUSION ASSESSMENT METHOD - bCAM Feature 1: Mental Status Change: No change from baseline (bCam negative, no delirium) Feature 2: Inattention Exam Errors: 0-1 error ( bCam negative, no delirium) Feature 3: Altered level of Consciousness: RASS = 0, alert and calm Feature 4: Disorganized thinkin errors bCAM Result: Final Result Negative ORAL INTAKE (PERCENTAGE OF MEAL EATEN) Dinner: 51% - 75% /es/ ARTURO TOVAR RN Signed: 12/10/2021 17:34 Dec 10, 2021 04:47 NURSING NOTE: ARTURO TOVAR [place] PM LOCAL TITLE: VAAES SKIN INSPECTION/ASSESSMENT [facility]OC STANDARD TITLE: NURSING NOTE DATE OF NOTE: DEC 10, 2021@16:47 ENTRY DATE: DEC 10, 2021@16:47:45 AUTHOR: ARTURO TOVAR EXP COSIGNER: URGENCY: STATUS: COMPLETED SKIN REINSPECTION/REASSESSMENT SKIN INSPECTION: Skin Color: Usual for ethnicity Skin Temperature: Warm Skin Moisture: Normal Skin Turgor: Elastic (normal/immediate) Nate Skin Assessment: The patient's Nate Scale Score is 20. The pat ient is considered not at risk for development of pressure ulcers/injurie s. Sensory perception -- ability to respond meanin gfully to pressure-related discomfort No impairment. Moisture -- degree to which skin is exposed to moisture Rarely moist. Activity -- ability to change and control body position Walks occasionally. Mobility -- ability to change and control body position Slightly limited. Nutrition -- usual food intake patterns Adequate. Friction and shear No apparent problem. INTERVENTIONS: The pressure injury interventions were not need ed - patient/resident is not at risk. SKIN INTEGRITY: Intact /es/ ARTURO TOVAR RN Signed: 12/10/2021 16:48 Dec 10, 2021 04:17 NURSING INPATIENT NOTE: ARTURO TOVAR [place] PM LOCAL TITLE: MEAES ACUTE INPATIENT [facility]G [facility]IFT [facility] STANDARD TITLE: NURSING INPATIENT NOTE DATE OF NOTE: DEC 10, 2021@16:17 ENTRY DATE: DEC 10, 2021@16:17:26 AUTHOR: ARTURO TOVAR EXP COSIGNER: URGENCY: STATUS: COMPLETED Version 2.2 Charting in accordance with [place] APPROVED ENTERPRI SE STANDARD (MEAES) ACUTE INPATIENT/REHABILITATION [facility]ENDR[facility] ADMISSION SCREENING, ASSESSMENT, AND STANDARDS OF CARE REASSESSMENT PAIN ASSESSMENT Are you currently experiencing pain? No Pain Score: 0 NEUROLOGICAL Neurological Orientation: Oriented x4 Level of Consciousness (AVPU): Alert = Appears aware of and responsive to the environment on their own. Follows commands, open eyes spontaneously, and tract objects. Affect/behavior: Cooperative Calm NEUROMUSCULAR/NEUROVASCULAR EXTREMITIES ASSESSM ENT Strength: Nursing Clinical Director Bilateral: Strong Upper Extremity Bilateral: Full strength Lower Extremity Bilateral: Full strength Sensation: Upper Extremity Sensation Bilateral: Intact Lower Extremity Sensation Bilateral: Intact Temperature: Upper Extremity Temperature Bilateral: Warm Lower Extremity Temperature Bilateral: Warm CARDIOVASCULAR Heart Sounds: Normal (S1S2) Heart Rate/Rhythm (without hall monitor): Irregular Capillary Refill: All 4 extremities, less than or equal to 3 seco nds. Peripheral Pulses: All 4 extremities, 3+ normal. Edema: None RESPIRATORY Respirations: Unlabored Pattern: Regular Breath Sounds Auscultated: Anterior only Left Upper Lobe: Clear Right Upper Lobe: Clear Right Middle Lobe: Clear Left Lower Lobe: Clear Right Lower Lobe: Clear GASTROINTESTINAL Bowel movement reported by patient-unwitnessed Elimination: Continent Abdominal Description: Distended Palpation: Soft, Non-tender Bowel Sounds: RUQ: Active LUQ: Active RLQ: Active LLQ: Active GENITOURINARY Elimination: Continent INTEGUMENTARY/SKIN/WOUND - (INCLUDING NATE) SEE NOTE: VAAES SKIN INPECTION/ASSESSMENT IV LINES Peripheral IV: Line #1: Assessment: Location: Left, Antecubital Gauge: 20 Dressing Condition: Clean, dry, intact Site Condition: No redness, swelling, pain Line Status: Capped Flushed /es/ ARTURO TOVAR RN Signed: 12/10/2021 16:20 Dec 10, 2021 01:51 NURSING NOTE: ARTURO TOVAR [place] PM LOCAL TITLE: NURSING PROGRESS OTHER NOTE [facility] STANDARD TITLE: NURSING NOTE DATE OF NOTE: DEC 10, 2021@13:51 ENTRY DATE: DEC 10, 2021@13:51:13 AUTHOR: ARTURO TOVAR EXP COSIGNER: URGENCY: STATUS: COMPLETED In reference to the discontinued midline which had been pulled out inadvertently by the pt. found on the floor, an d t/w confirmed that the length of the catheter was 10 cm confir med by the label on the midline itself and then measured. /emely/ ARTURO TOVAR RN Signed: 12/10/2021 13:53 Receipt Acknowledged By: 12/10/2021 13:59 /emely/ Carolina RICO RN Dec 10, 2021 12:53 NURSING NOTE: ARTURO TOVAR [place] PM LOCAL TITLE: VAAES NSG IV INSERTION AND MAINTEN ANCE [facility] STANDARD TITLE: NURSING NOTE DATE OF NOTE: DEC 10, 2021@12:53 ENTRY DATE: DEC 10, 2021@12:53:32 AUTHOR: ARTURO TOVAR EXP COSIGNER: URGENCY: STATUS: COMPLETED Version 2.2 Charting in accordance with [facility] ENTERPRI SE STANDARD (MEAES) ACUTE INPATIENT/REHABILITATION KENDRICK SING ADMISSION SCREENING, ASSESSMENT, AND STANDARDS OF CARE IV Line Insertion and Maintenance Peripheral IV Line #1: Insertion: Date/Time: Nov Inserted by (name): Francine Carrion RN Location: Left, Antecubital Gauge: 20 Assessment: Location: Left, Antecubital Gauge: 20 Dressing Condition: Clean, dry, intact Site Condition: No redness, swelling, pain Line Status: Capped Flushed Midline Discontinue: Location: Right, [place] Date/Time: Nov@10:15 Other: pulled out Reason for discontinuation: Unexpected removal t/w did not observe the catheter as the pt had i nadvertently pulled it out accidentally. /emely/ ARTURO TOVAR RN Signed: 12/10/2021 13:30 Dec 10, 2021 12:50 NURSING INPATIENT NOTE: ARTURO TOVAR [place] LOCAL TITLE: [facility] NURSING FREQUENT DOCUMENTATI ON [facility] STANDARD TITLE: NURSING INPATIENT NOTE DATE OF NOTE: DEC 10, 2021@12:50 ENTRY DATE: DEC 10, 2021@12:50:22 AUTHOR: ARTURO TOVAR EXP COSIGNER: URGENCY: STATUS: COMPLETED Version 2.4 Charting in accordance with [facility] ENTERPRI SE STANDARD (MEAES) ACUTE INPATIENT/REHABILITATION KENDRICK SING ADMISSION SCREENING, ASSESSMENT, AND STANDARDS OF CARE ORAL INTAKE (PERCENTAGE OF MEAL EATEN) Lunch: 51% - 75% /emely/ ARTURO TOVAR RN Signed: 12/10/2021 12:50 Dec 10, 2021 10:19 NURSING INPATIENT NOTE: ART[place]O TOVAR [place] LOCAL TITLE: VAAES NURSING FREQUENT DOCUMENTATI ON [facility] STANDARD TITLE: NURSING INPATIENT NOTE DATE OF NOTE: DEC 10, 2021@10:19 ENTRY DATE: DEC 10, 2021@10:19:50 AUTHOR: ARTURO TOVAR EXP COSIGNER: URGENCY: STATUS: COMPLETED Version 2.4 Charting in accordance with [place] APPROVED ENTERPRI SE STANDARD (MEAES) ACUTE INPATIENT/REHABILITATION KENDRICK SING ADMISSION SCREENING, ASSESSMENT, AND STANDARDS OF CARE PROVIDER NOTIFICATION Provider Name: Nurse Francine Carrion RN Notification Reason: Other: Nurse advised t/w that she had inserted an IV t o the pt. and that she was unable to advance the catheter fully as she tho ught she hit a valve. She stated that there is blood return and it flushe s, but to be careful with it, and monitor it closely. The IV is a #20 in the left AC, flushed once again, with blood return. /emely/ ARTURO TOVAR RN Signed: 12/10/2021 10:24 Dec 10, 2021 10:16 NURSING INPATIENT NOTE: [place]O TOVAR [place] LOCAL TITLE: VAAES NURSING FREQUENT DOCUMENTATI ON [facility] STANDARD TITLE: NURSING INPATIENT NOTE DATE OF NOTE: DEC 10, 2021@10:16 ENTRY DATE: DEC 10, 2021@10:16:58 AUTHOR: YAKOVLEFF,ARTURO B EXP COSIGNER: URGENCY: STATUS: COMPLETED Version 2.4 Charting in accordance with [place] APPROVED ENTERPRI SE STANDARD (VAAES) ACUTE INPATIENT/REHABILITATION KENDRICK SING ADMISSION SCREENING, ASSESSMENT, AND STANDARDS OF CARE PROVIDER NOTIFICATION Provider Name: Nurse Ashley Marquez RN Notification Reason: Other: Nurse advised t/w that the pt. had lost his IV, in his right upper arm, lost as a result of pulling out accidentally. S he stated she alerted the medical team and that there will not be IV medi cations at this time. /emely/ ARTURO TOVAR RN Signed: 12/10/2021 10:19 Dec 10, 2021 08:22 NURSING INPATIENT NOTE: ARTURO TOVAR [facility] TITLE: VAAES ACUTE INPATIENT NSG SHIFT SESSMENT [facility] STANDARD TITLE: NURSING INPATIENT NOTE DATE OF NOTE: DEC 10, 2021@08:22 ENTRY DATE: DEC 10, 2021@08:22:19 AUTHOR: ARTURO TOVAR EXP COSIGNER: URGENCY: STATUS: COMPLETED Version 2.2 Charting in accordance with [place] APPROVED ENTERPRI SE STANDARD (VAAES) ACUTE INPATIENT/REHABILITATION NURSING ADMISSION SCREE JEROME, ASSESSMENT, AND STANDARDS OF CARE ASSESSMENT HANDOFF Bedside report and handoff completed Safety check completed PAIN ASSESSMENT Are you currently experiencing pain? No Pain Score: 0 CHAVEZ FALL SCALE & TIPS PROGRAM Chavez Fall Scale: The Chavez Fall scale was performed and score wa s 85. This is indicative of high risk for falls. History of falling in past 3 months? Yes Secondary diagnosis: Yes Ambulatory aid: Crutches/cane(s)/walker Intravenous therapy/Heparin lock: Yes Gait/Transferring: Weakness Mental Status: Oriented to own ability/knows own limitations Fall Tailoring Interventions for Patient Safety (TIPS) Fall TIPS initiated with patient: Yes Fall TIPS reviewed with patient: Yes ENVIRONMENTAL SAFETY MANAGEMENT Implemented safety standards of care: -[place] to unit & environment -Adequate room lighting -Bed in low and locked position -Call light within reach -Personal items within reach -Traffic path in room free of clutter -Non-slip footwear -Upper/half length side rails up for bed mobili ty -Sensory aids within reach -Encourage patient to utilize sensory support NEUROLOGICAL Neurological Orientation: Oriented x4 Level of Consciousness (AVPU): Alert = Appears aware of and responsive to the environment on their own. Follows commands, open eyes spontaneously, and tract objects. Affect/behavior: Cooperative Calm NEUROMUSCULAR/NEUROVASCULAR EXTREMITIES ASSESSM ENT Strength: Nursing Clinical Director Bilateral: Strong Upper Extremity Bilateral: Full strength Lower Extremity Bilateral: Full strength Sensation: Upper Extremity Sensation Bilateral: Intact Lower Extremity Sensation Bilateral: Intact Temperature: Upper Extremity Temperature Bilateral: Warm Lower Extremity Temperature Bilateral: Warm CARDIOVASCULAR Heart Sounds: Normal (S1S2) Heart Rate/Rhythm (without hall monitor): Irregular Capillary Refill: All 4 extremities, less than or equal to 3 seco nds. Peripheral Pulses: All 4 extremities, 3+ normal. Edema: None RESPIRATORY Respirations: Unlabored Pattern: Regular Breath Sounds Auscultated: Anterior and posterior Left Upper Lobe: Clear Right Upper Lobe: Clear Right Middle Lobe: Clear Left Lower Lobe: Clear Right Lower Lobe: Clear GASTROINTESTINAL Elimination: Continent Abdominal Description: Distended Palpation: Soft, Non-tender Bowel Sounds: RUQ: Active LUQ: Active RLQ: Active LLQ: Active GENITOURINARY Elimination: Continent INTEGUMENTARY/SKIN/WOUND - (INCLUDING NATE) SEE NOTE: VAAES SKIN INPECTION/ASSESSMENT ACTIVITIES OF DAILY LIVING Hygiene ADLs: Oral Care: Non-ventilator patient: Patient is edentulous IV LINES Peripheral IV: Line #1: Assessment: Location: Right, Upper arm Gauge: 20 Dressing Condition: Clean, dry, intact Transparent dressing Antimicrobial disc Site Condition: No redness, swelling, pain Line Status: Capped Flushed PSYCHOSOCIAL Type of Emotional Support Provided: 1:1 discussion, Treatment discussion Additional Comment: discussed speech therapy bar ium swallow /emely/ ARTURO TOVAR RN Signed: 12/10/2021 08:37 Dec 10, 2021 08:21 NURSING NOTE: ARTURO TOVAR [place] LOCAL TITLE: NURSING PROGRESS OTHER NOTE [facility] STANDARD TITLE: NURSING NOTE DATE OF NOTE: DEC 10, 2021@08:21 ENTRY DATE: DEC 10, 2021@08:21:56 AUTHOR: ARTURO TOVAR EXP COSIGNER: URGENCY: STATUS: COMPLETED Masimo/Safety Net YES - Applied site /es/ ARTURO B LA MARS Signed: 12/10/2021 08:22 Dec 10, 2021 08:21 NURSING INPATIENT NOTE: ARTURO TOVARI [place] LOCAL TITLE: VAAES NURSING FREQUENT DOCUMENTATI ON [facility] STANDARD TITLE: NURSING INPATIENT NOTE DATE OF NOTE: DEC 10, 2021@08:21 ENTRY DATE: DEC 10, 2021@08:21:18 AUTHOR: ARTURO TOVAR EXP COSIGNER: URGENCY: STATUS: COMPLETED Version 2.4 Charting in accordance with ME APPROVED ENTERPRI SE STANDARD (MEAES) ACUTE INPATIENT/REHABILITATION KENDRICK SING ADMISSION SCREENING, ASSESSMENT, AND STANDARDS OF CARE ORAL INTAKE (PERCENTAGE OF MEAL EATEN) Breakfast: 51% - 75% /es/ ARTURO TOVAR RN Signed: 12/10/2021 08:21 Dec 10, 2021 07:49 INTERNAL MEDICINE NOTE: ASHLY TODD [facility] TITLE: General Internal Medicine Note [facility] STANDARD TITLE: INTERNAL MEDICINE NOTE DATE OF NOTE: DEC 10, 2021@07:49 ENTRY DATE: DEC 10, 2021@07:49:44 AUTHOR: ASHLY TODD EXP COSIGNER: ALVARO VARGHESE URGENCY: STATUS: COMPLETED General Internal Medicine Note Has ADDENDA Date/Time of Admission: Nov 16:44 Allergies: LISINOPRIL Remote Allergy/ADR: RART - Remote Allergy/ADR No Remote Allergy/ADR Data available for this pa tient 24 hour events/subjective: - JESSICA - Was able to eat his breakfast shake and cream of wheat - No abdominal or esophageal pain this morning - Bowel movements looser, 2-3 yesterday - Worked with PT, feels slightly unsteady on fee t - Not out of bed yet today Active Inpatient Medications (excluding Supplies ): Active Inpatient Medications Status 1) ALBUTEROL INHL,ORAL 2 PUFFS INHALATION ORAL Q ID PRN ACTIVE for breathing 2) AMLODIPINE TAB 5MG PO QD please hold if systo lic <90 ACTIVE 3) AMOXICILLIN/CLAVULANATE TAB 1 TABLET PO BID P ills ACTIVE can be crushed into applesauce or substance of similar consistency. stop date 12/12 PM. 4) CARBOXYMETHYLCELLULOSE 0.5% SOLN,OPH ONE DROP OU QID ACTIVE 5) CHOLECALCIFEROL TAB 10MCG PO QD ACTIVE 6) DICLOFENAC 1% GEL,TOP 4 GRAMS TO LOWER EXTREM ITIES ACTIVE TOP QID PRN for pain/inflammation 7) ENOXAPARIN INJ 40MG/0.4ML SQ QD ACTIVE 8) FAMOTIDINE TAB 10MG PO BID ACTIVE 9) LOSARTAN TAB 12.5MG PO QD please hold if syst olic ACTIVE <90 10) OLODATEROL/TIOTROPIUM INHL,ORAL 2 PUFFS INHA LATION ACTIVE ORAL QD 11) OMEPRAZOLE CAP,EC 20MG PO BID-AC ACTIVE 12) REMDESIVIR INJ REMDESIVIR 100 MG in SODIUM C HLORIDE ACTIVE 0.9% INJ 100 ML INFUSE OVER 60 MINUTES IV QD 13) SERTRALINE TAB 150MG PO QD ACTIVE Physical Exam: Vital signs (include range): DATE/TIME TEMP PULSE RESP BP PAIN WEIGHT 12/10/21 @ 0430 97.6 98 16 113/71 0 12/09/21 @ 2243 0 12/09/21 @ 2030 98.2 82 18 111/58 Ins/Outs: Weight: 233.7 lb [106.00 kg] (12/06/2021 21:43) General: NAD, laying in bed Head and Neck: supple neck Respiratory: Lungs sounds ab sent on right lower lobe, no rhonchi appreciated in left field today. RUL sounds clear to auscultati on, improved air movement overall Cardiovascular: RRR, no MRG Abdomen/GI/: protuberant but nondisten ded, hyperactive bowel sounds,soft and non tender Musculoskeletal:no bony deformities Neurological: EOMI, II-XII grossly intact Psychiatric/Mental Status: appropiate affect Diagnostics Labs: SIGNIFICANT CHANGES: Glucose: 92 -> 144 H over 3 days. BUN: 6 L -> 8 over 1 days. ANION GAP: 12 -> 8 over 4 days. Lymph: 6.9 L -> 4.7 L over 1 days. [place]kin: 7.0 -> 4.3 L over 3 days. Eos: 0.2 L -> 0.7 over 2 days. Baso: 0.3 -> 0.1 over 1 days. Bands: 1.0 H -> 0.7 over 1 days. ANC: 4.5 -> 6.2 over 3 days. A.5 L -> 0.3 L over 1 days. AMC: 0.5 -> 0.3 over 4 days. AEC: 0.0 L -> 0.1 over 2 days. TBil: 0.6 -> 0.4 over 1 days. HEMATOLOGY: 12/10/2021 08:05 12/09/2021 07:09 12/08/2021 09:59 \ 11.6 / \ 11.3 / \ 12.1 / 7.0 ------ 164 7.1 ------ 158 8.4 ------ 185 / 37.5 \ / 35.8 \ / 38.2 \ PMN: 89.5% H LYMPH: 4.7% L MONO: 4.3% L EOS: 0.7 % BASO: 0.1% BANDS: 0.7% A.3 L MCV: 82.6 RDW: 16.8 H MCH: 25.6 L RETICULOCYTES (%) AUTOMATED: 1.23 RETABS: 0.052 @ 12/07/2021 06:00 CHEMISTRY: Dec 10, 2021@08:05 Dec 09, 2021@07:20 139 107 8 / 134 103 6 / 144 - 112 3.7 24 0.78 \ Gap: 12` 3.7 23 0.70 \ Ga p: 12` ` - corrected for albumin eGFR(CKD-EPI 2020): >90.0 Calcium: 8.3 L @ 2021 08:05 Corrected Calcium: 9.6 (alb 2.4 on Dec 07, 2021) @ 12/10/2021 08:05 Phos: 1.8 L Ma.7 @ 12/10/2021 08:05 Protein: 5.7 L Albumin: 2.4 L ALK: 109 ALT: 10 @ 12/07/2021 07:15 AST: 15 FIB-4 SCORE: 1.92 TBil: 0.4 @ 12/07/2021 07:15 BNP(P): 224.8 H TROPONIN II: 0.03 @ 12/06/2021 12 :00 URINE STUDIES: UA: Arlin/n/a LE n/a Protein 5 Ketones <2.0 Urob moe otherwise bland @ 12/06/2021 18:00 CLARITY: HAZY URINE PH: 5.0 PROTEIN, URINE: 30 @ 12/06/2021 18:00 WBC SCREEN: Neg RED BLOOD CELL/URINE: <1 @ 2021 18:00 WHITE BLOOD CELL/URINE: 3 HYALINE CAST: 5 H @ 18:00 MUCOUS/URINE: MANY @ 12/06/2021 18:00 OTHER: MRSA DNA (NARES): Neg @ 12/06/2021 21:45 COVID-19 AG SCRN(wrj BINAX)POSITIVE H* (NASAL CA VITY): Ref: @ 12/06/2021 12:00 FLU A(PCR) (NASOPHARYNX): Neg @ 12/06/2021 12:00 FLU B(PCR) (NASOPHARYNX): Neg @ 12/06/2021 12:00 RSV(PCR) (NASOPHARYNX): Neg @ 12/06/2021 12:00 COVID-19(ILJ-een-[id number])DETECTED H* (NASOPHAR YNX): Ref: @ 12/06/2021 12:00 MICRO: LAC - pending @ 12/06/2021 15:30 LAC - pending @ 12/06/2021 15:30 Imagin12/09/2021 BASW (MODIFIED) CPT Code: 67288 Interpreting Staff: JESSIE CHENEY Exam Case Number: [id number] Exam Status: COMPLETE Rpt Status: VERIFIED Technologist: ELFEGO WOOD Reason for Study: dysphagia ?esophageal spasm Report: DELISA (MODIFIED) , 12/09/2021 TECHNIQUE: Real-time fluoroscopic images acquir ed after the patient ingested varying consistencies of bariu m. INDICATION: dysphagia ?esophageal spasm COMPARISON: Chest CT 12/06/2021 Fluoroscopy time: 2 minutes and 57 seconds Dose : 22.73mGy FINDINGS: The patient demonstrates early large volume aspiration and consistent penetration. The aspi ration was silent without a cough reflex elicited. The pat ient also demonstrates prolonged chewing and piecemeal sw allowing of the ingested barium. Moderate residue remains the v allecula and piriform sinuses. A large column of barium persists in the esopha dagoberto. There is to and fro motion and slow clearing of the ingeste d barium from the patient's esophagus. A barium tablet was not administered as the pat ient felt unwell. Impression: 1. Gross, silent aspiration. 2. Large column of barium remained in the patient's esophagus. The patien t mentioned that after he eats he often will lay recumbent. This change in posture along with the large amount of ingested material that remains in the esophagus as additional risk for larger volume aspiration. 3. Please refer to speech pathology 's note for additional details and recommendations. DX Codes: NO IMMEDIATE ATTENTION REQUIRED EKG: Assessment: 71 year old MALE with a history of Stage IIIa adenocarcinoma EGFR/ALK negative s/p chemotherapy/radiation/d ervalumab, COPD, diverticulitis s/p partial colonic resection, chronic low back pain s/p discectomy here for a 6 month history of 70 pound unintentional weight loss, fatigue, weakne ss, anorexia, odynophagia, myalgias, intermittent diarrhea and gene ral malaise alongside a 10 day history acutely of increased sputum production, SOB, and recent COVID+ here with aspiration penumonia. Patient continues to improve from respiratory pe rspective, now on oral antibiotics for aspiration pneumonia. He complet ed his course of remdesiver yesterday, no longer on active COVID treatment o r precautions per ID recommendations. MBS yesterday showed significan t esophageal dysfunction with large amount of barium remai jerome in patient's esophagus. This is concerning for ongoing risk for aspiration. Have reached out to GI consultants about EGD, planned for next week. Per their request will ob btain CT abdomen wo contrast first to better characterize GI anatomy prior to the EGD. Per TECHNICAL SUPPORT AGENT recommendations, will also work with ENT consultants to assess for vocal chord pathology although this seems less likely to be the underlying cause of his dysphagia and ongoing silent aspiration. Of note, patient's acute presentation is best explained by a silent aspiration event with subsequent development of aspiration pneumonia however, he does require close follow up with his oncologist (dr. Cameron) at discharge due to possible progression of lung adenocarcinoma and new left adrenal mass. PLAN: #SOB #aspiration PNA -S/p Ceftriaxone 2 g/day + metronidazole 500 mg IV/PO q 8(12/06 - 12/09) -Continue Augmentin 875/125 PO BID until 12/12 to complete 7 day course -appreciate pulmonology consult -appreciate ID consult #COVID+, resolved -Remdesivir 200 mg IV once(12/06) and 100 mg IV q d(12/07-12/09) -Off precautions 12/09 -appreciate ID recs #ODYNOPHAGIA -Appreciate TECHNICAL SUPPORT AGENT consult -CT abdomen wo contrast per GI -EGD next week, appreciate GI consult -Continue PPI -Added H2 raquel (famotidine 10 mg BID) #COPD -home inhaler regimen #HTN -continue home amlodipine and losartan #GERD -omeprazole 20 mg BID -famotidine 10 mg BID #depression -continue home sertraline #other home meds -continue cholecalciferol -continue diclofenac gel - VTE prophylaxis: [ X] Lovenox 40mg SC daily [ ] Lovenox 30mg SC daily (CrCl <30 but not on HD) [ ] Heparin 5000units SC TID (ESRD or other Soniya enox contraindication) [ ] Other pharmacologic VTE prophylaxis: [ ] Patient declines VTE pharmacologic prophyla xis despite discussion of VTE risk [ ] Very high risk for VTE (Critical Illness, s troke) thus both pharmacologic prophylaxis and Venodynes applied [ ] Pharmacologic prophylaxis contraindicated d ue to: [ ] SCD/Venodynes applied [ ] SCD/ Venodynes contraindicated due to leg w ounds, delirium concers [ ] Patient declines Venodynes /emely/ ASHLY TODD Resident Physician Signed: 12/10/2021 10:13 /emely/ ALVARO VARGHESE MD DIRECTOR OF AMBULATORY CARDIOLOGY Cosigned: 12/10/2021 11:14 12/10/2021 ADDENDUM STATUS: COMPLETED Mr Meek discussed and seen with Dr. Todd. I agree with assessment and plan as outlined. CT abdomen results now back: The absence of oral and intravenous contrast nam its the exam. Lung Bases: New incompletely imaged [...] nonspecific celiac and portocaval lym ph nodes. PLAN: 1. GI: will discuss next steps with GI this week --EGD vs. esophagram vs ? 2. Oncology--his primary oncologist at [facility] is a scott of new left adrenal nodule and is planning a PET scan as an out-pat ient. /es/ ALVARO VARGHESE MD DIRECTOR OF AMBULATORY CARDIOLOGY Signed: 12/10/2021 11:17 Dec 10, 2021 03:00 NURSING INPATIENT NOTE: ANGELA MINOR [facility] TITLE: MEAES ACUTE INPATIENT NSG SHIFT [facility] STANDARD TITLE: NURSING INPATIENT NOTE DATE OF NOTE: DEC 10, 2021@03:00 ENTRY DATE: DEC 10, 2021@08:00:20 AUTHOR: ANGELA MINOR EXP COSIGNER: URGENCY: STATUS: COMPLETED Version 2.2 Charting in accordance with ME APPROVED ENTERPRI SE STANDARD (MEAES) ACUTE INPATIENT/REHABILITATION NURSING ADMISSION SCREE JEROME, ASSESSMENT, AND STANDARDS OF CARE REASSESSMENT PAIN ASSESSMENT Are you currently experiencing pain? No Pain Score: 0 NEUROLOGICAL Neurological Orientation: Oriented x4 Level of Consciousness (AVPU): Alert = Appears aware of and responsive to the environment on their own. Follows commands, open eyes spontaneously, and tract objects. NEUROMUSCULAR/NEUROVASCULAR EXTREMITIES ASSESSM ENT Strength: Nursing Clinical Director Bilateral: Strong Upper Extremity Bilateral: Lower Extremity Bilateral: Full strength Sensation: Upper Extremity Sensation Bilateral: Intact Lower Extremity Sensation Bilateral: Intact Temperature: Upper Extremity Temperature Bilateral: Warm Lower Extremity Temperature Bilateral: Warm CARDIOVASCULAR Heart Sounds: Normal (S1S2) Heart Rate/Rhythm (without hall monitor): Regular Capillary Refill: All 4 extremities, less than or equal to 3 seco nds. Peripheral Pulses: All 4 extremities, 3+ normal. Edema: None RESPIRATORY Respirations: Unlabored Pattern: Regular Breath Sounds Auscultated: Anterior and posterior Left Upper Lobe: Clear Right Upper Lobe: Clear Right Middle Lobe: Clear Left Lower Lobe: Clear Right Lower Lobe: Clear GASTROINTESTINAL No bowel movement reported by patient Abdominal Description: Flat Palpation: Non-tender Bowel Sounds: RUQ: Active LUQ: Active RLQ: Active LLQ: Active GENITOURINARY Elimination: Continent INTEGUMENTARY/SKIN/WOUND - (INCLUDING NATE) SEE NOTE: VAAES SKIN INPECTION/ASSESSMENT /es/ ANGELA MINOR Registered Nurse Signed: 12/10/2021 08:02 Dec 09, 2021 11:02 NURSING NOTE: ANGELA MINOR J CT PM LOCAL TITLE: NURSING PROGRESS OTHER NOTE [facility] STANDARD TITLE: NURSING NOTE DATE OF NOTE: DEC 09, 2021@23:02 ENTRY DATE: DEC 09, 2021@23:02:14 AUTHOR: ANGELA MINOR EXP COSIGNER: URGENCY: STATUS: COMPLETED Masimo/Safety Net YES - Applied site R-hand /es/ ANGELA MINOR Registered Nurse Signed: 12/09/2021 23:02 Dec 09, 2021 10:50 NURSING NOTE: ANGELA MINOR J CT PM LOCAL TITLE: VAAES SKIN INSPECTION/ASSESSMENT [facility] STANDARD TITLE: NURSING NOTE DATE OF NOTE: DEC 09, 2021@22:50 ENTRY DATE: DEC 09, 2021@22:50:50 AUTHOR: ANGELA MINOR EXP COSIGNER: URGENCY: STATUS: COMPLETED INITIAL SKIN INSPECTION/ASSESSMENT SKIN INSPECTION: Skin Color: Usual for ethnicity Skin Temperature: Warm Skin Moisture: Normal Skin Turgor: Nate Skin Assessment: The patient's Nate Scale Score is 21. The pat ient is considered not at risk for development of pressure ulcers/injurie s. Sensory perception -- ability to respond meanin gfully to pressure-related discomfort No impairment. Moisture -- degree to which skin is exposed to moisture Rarely moist. Activity -- ability to change and control body position Walks occasionally. Mobility -- ability to change and control body position No limitation. Nutrition -- usual food intake patterns Adequate. Friction and shear No apparent problem. INTERVENTIONS: No change in previous interventions as listed b elow 12/09/2021 Vaaes Pressure Injury Int Not Needed SKIN INTEGRITY: Intact /es/ ANGELA MINOR Registered Nurse Signed: 12/09/2021 22:59 Dec 09, 2021 10:42 NURSING INPATIENT NOTE: [facility] TITLE: MEAES ACUTE INPATIENT NSG SHIFT [facility] STANDARD TITLE: NURSING INPATIENT NOTE DATE OF NOTE: DEC 09, 2021@22:42 ENTRY DATE: DEC 09, 2021@22:43:04 AUTHOR: ANGELA MINOR EXP COSIGNER: URGENCY: STATUS: COMPLETED Version 2.2 Charting in accordance with [facility] ENTERPRI SE STANDARD (MEAES) ACUTE INPATIENT/REHABILITATION NURSING ADMISSION SCREE JEROME, ASSESSMENT, AND STANDARDS OF CARE ASSESSMENT HANDOFF Bedside report and handoff completed Safety check completed PAIN ASSESSMENT Are you currently experiencing pain? No Pain Score: 0 CHAVEZ FALL SCALE & TIPS PROGRAM Chavez Fall Scale: The Chavez Fall scale was performed and score wa s 35. This is indicative of moderate risk for falls. History of falling in past 3 months? No Secondary diagnosis: Yes Ambulatory aid: None/bedrest/nurse assist Intravenous therapy/Heparin lock: Yes Gait/Transferring: Normal/bed rest/immobile Mental Status: Oriented to own ability/knows own limitations ENVIRONMENTAL SAFETY MANAGEMENT Implemented safety standards of care: -[place] to unit & environment -Adequate room lighting -Bed in low and locked position -Call light within reach -Personal items within reach -Traffic path in room free of clutter -Non-slip footwear -Upper/half length side rails up for bed mobili ty -Sensory aids within reach -Encourage patient to utilize sensory support NEUROLOGICAL Neurological Orientation: Oriented x4 Level of Consciousness (AVPU): Alert = Appears aware of and responsive to the environment on their own. Follows commands, open eyes spontaneously, and tract objects. Affect/behavior: Cooperative Calm NEUROMUSCULAR/NEUROVASCULAR EXTREMITIES ASSESSM ENT Strength: Nursing Clinical Director Bilateral: Strong Upper Extremity Bilateral: Full strength Lower Extremity Bilateral: Full strength Sensation: Upper Extremity Sensation Bilateral: Intact Lower Extremity Sensation Bilateral: Intact CARDIOVASCULAR Heart Sounds: Normal (S1S2) Heart Rate/Rhythm (without hall monitor): Regular Capillary Refill: R Hand: Greater than 3 seconds L Hand: Greater than 3 seconds R Foot: Unable to assess L Foot: Unable to asse ss Peripheral Pulses: All 4 extremities, 3+ normal. Edema: None RESPIRATORY Respirations: Unlabored Pattern: Regular Breath Sounds Auscultated: Anterior and posterior Right Upper Lobe: Clear Left Upper Lobe: Clear, Expiratory wheeze Right Middle Lobe: Diminished Right Lower Lobe: Diminished Left Lower Lobe: Clear GASTROINTESTINAL No bowel movement reported by patient Elimination: Abdominal Description: Flat Palpation: Soft, Non-tender Bowel Sounds: RUQ: Active LUQ: Active RLQ: Active LLQ: Active GENITOURINARY Elimination: Continent INTEGUMENTARY/SKIN/WOUND - (INCLUDING NATE) SEE NOTE: VAAES SKIN INPECTION/ASSESSMENT IV LINES Peripheral IV: Midline: Assessment: Location: Right Dressing condition: Clean, dry, intact Site condition: No redness, swelling, pain Line status: Antimicrobial caps in place Antimicrobial caps replaced Positive blood return External catheter length measuring/marking to s kin exit: (cm) PSYCHOSOCIAL Type of Emotional Support Provided: 1:1 discussion /emely/ ANGELA MINOR Registered Nurse Signed: 12/09/2021 22:50 Dec 09, 2021 03:11 TELEPHONE ENCOUNTER NOTE: GABY BAUTISTA [facility] TITLE: VISN 1 CCC ACTION REQUIRED [facility] STANDARD TITLE: TELEPHONE ENCOUNTER NOTE DATE OF NOTE: DEC 09, 2021@15:11:52 ENTRY DATE: DEC 09, 2021@15:13:26 AUTHOR: GABY BAUTISTA EXP COSIGNER: URGENCY: STATUS: COMPLETED Type of call: CLINICAL INFORMATION/EDUCATION. PCMM Provider Info: Inpatient Attending: ALVARO VARGHESE PHONE:[phone] PAGER:[phone] Inpatient Provider: ASHLY TODD [facility] ([id number]) PACT: BUFFY PACT (Focus: Primary Care Onl y) Primary Care Provider: KATEY MELTON PHONE:[phone] Coverstitch Elastic Attacher: ZAK MORRELL V PHONE:[phone] Clinical Associate: ASHLY NUNEZ PHONE:[phone] Farm Reporter: JANE PAREKH Clinical POC: Coverstitch Elastic Attacher ZAK MORRELL V PHONE:[phone] Administrative POC: Farm Reporter JANE PAREKH Caller Response: ADM CALL RESOLVED SPOUSE called in for LUCAS MEEK ([phone] ) . Comments: Please call pt's , Evaluation/Management Code: HC PRO PHONE CALL 5- 10 MIN ([phone]). Starting at: 12/09/2021 @ 3:11:52 PM Ending at: 12/09/2021 @ 3:12:47 PM Length: 0 minutes. Author: GABY BAUTISTA Caller Area: [facility] The following identifiers were used to verify th is patient: SSN. Chief Complaint: Not applicable to call. Class Code: Other specified counseling. Contact Patient's Email Address: [email or web address] /emely/ GABY Yao YVONNESHANYADY SUELei 1 CCC AMSA Signed: 12/09/2021 15:13 Receipt Acknowledged By: * AWAITING SIGNATURE * ALVARO VARGHESE Dec 09, 2021 02:39 NURSING INPATIENT NOTE: CARLITOS ROLDAN PM LOCAL TITLE: [facility] NURSING FREQUENT DOCUMENTATI ON [facility] STANDARD TITLE: NURSING INPATIENT NOTE DATE OF NOTE: DEC 09, 2021@14:39 ENTRY DATE: DEC 09, 2021@14:39:35 AUTHOR: CARLITOS ROLDAN EXP COSIGNER: URGENCY: STATUS: COMPLETED Version 2.4 Charting in accordance with ME APPROVED ENTERPRI SE STANDARD (MEAES) ACUTE INPATIENT/REHABILITATION KENDRICK SING ADMISSION SCREENING, ASSESSMENT, AND STANDARDS OF CARE PROVIDER NOTIFICATION Provider Name: Antony Mckeon MD Notification Reason: Other: small amount of urine output and tea colored ur ine. nursing to bladderscan after next void. no new orders at t his time per provider /emely/ CARLITOS ROLDAN Registered Nurse Signed: 12/09/2021 14:41 Dec 09, 2021 02:00 UNDERWRITING SUPPORT SPECIALIST NOTE: MERVIN REBOLLEDO LOCAL TITLE: Case Management Inpatient Initial Assessment [facility] STANDARD TITLE: UNDERWRITING SUPPORT SPECIALIST NOTE DATE OF NOTE: DEC 09, 2021@14:00 ENTRY DATE: DEC 09, 2021@14:00:38 AUTHOR: MERVIN REBOLLEDO EXP COSIGNER: URGENCY: STATUS: COMPLETED Discussed patient with the Care Team in multidis ciplinary/discharge planning rounds. Reviewed record and interviewed patient. Introduced/reviewed CM role and services accepted. REASON for HOSPITALIZATION: Admission Date: Nov Admission Dx: pneumo rachel with COVID + Admitting Physician: ASHLY TODD PREVIOUS FUNCTIONAL STATUS: A/O x3, Inde pendent with ambulation sometimes uses cane, drives and does own ADLS> Lives at home wi th his Cherie(also got COVID; non hospitalized) who works a [employer]. Home is single level with basement and has 8 railed steps to get inside. Patient reports loss of appetite hx and loss of 90 lbs. Patient has tub/shower combo with curtain closure. Patient reports weak ness at RLE is barrier to tub use. CURRENT FUNCTIONAL STATUS:A/O x3 , now removed f rom COVID 19 precautions. TECHNICAL SUPPORT AGENT rec: minced & moist and thin liquids. SOCIAL / FAMILY SUPPORTS: Ot hers living in the home: Son, DIL and their children ADVANCE DIRECTIVES: PAYOR [facility] CURRENT HOME/COMMUNITY SERVICES/EQUIPMENT: [employer] chair, grab bars, cane Home Health Agency: Other: [facility] [employer] REFERRAL NEEDED:NA PRIMARY CARE PHYSICIAN: SERA MELTON PACT *WH* POTENTIAL DISCHARGE NEEDS:TBD. Patient will declan in IP over weekend this RNCM will visit patient on Sunday and reassess for an y home care needs. Patient states he has had [facility] in past ;[facility]. PT eval pending. PATIENT/FAMILY EDUCATION NEEDS: Diagnosis, any m edication changes ANTICIPATED BARRIERS TO DISCHARGE: none TRANSPORTATION AT DISCHARGE: PLAN: CM will continue to terry pport and follow patient progress for continuity of care and assist with discharge planning while ho spitalized /es/ MERVIN KESHA CMSRN Signed: 12/09/2021 14:13 Dec 09, 2021 01:50 NURSING INPATIENT NOTE: CARLITOS ROLDAN [place] PM LOCAL TITLE: VAAES NURSING FREQUENT DOCUMENTATI ON [facility] STANDARD TITLE: NURSING INPATIENT NOTE DATE OF NOTE: DEC 09, 2021@13:50 ENTRY DATE: DEC 09, 2021@13:50:31 AUTHOR: CARLITOS ROLDAN EXP COSIGNER: URGENCY: STATUS: COMPLETED Version 2.4 Charting in accordance with ME APPROVED ENTERPRI SE STANDARD (VAAES) ACUTE INPATIENT/REHABILITATION KENDRICK SING ADMISSION SCREENING, ASSESSMENT, AND STANDARDS OF CARE ORAL INTAKE (PERCENTAGE OF MEAL EATEN) Lunch: 1% - 25% /emely/ CARLITOS ROLDAN Registered Nurse Signed: 12/09/2021 13:50 Dec 09, 2021 12:47 INFECTIOUS DISEASE NOTE: FILI JONES [facility] TITLE: Infectious Disease Note [facility] STANDARD TITLE: INFECTIOUS DISEASE NOTE DATE OF NOTE: DEC 09, 2021@12:47 ENTRY DATE: DEC 09, 2021@12:47:59 AUTHOR: FILI JONES EXP COSIGNER: URGENCY: STATUS: COMPLETED Infectious Disease Note Has ADDENDA 71 man with COVID-19 and aspiration PNA. - Reports that 10 days ago h e tested positive for COVID-19. At that time he had cough and URI symptoms. - He has not developed severe disease and is not immunocompromised. - Per advertising intern his respiratory symptoms have great ly improved in house since admission. A/P Given that 10 days have elapsed since initial po sitive COVID-19 test, that he never developed severe disease, is not immunocom promised and that patient's symptoms have significantly improved since admis blanca, he can be removed from respiratory isolation. - He can be changed to Augmentin to complete a 1 0 day course as outlined yesterday Fili Jones /emely/ FILI JONES Infectious Diseases Signed: 12/09/2021 12:52 12/09/2021 ADDENDUM STATUS: COMPLETED Discussed with pulm fellow CODY Dias MD, Dr., and Dr. Antony Mckeon, we are okay to complete 7-day antibio tic course. /emely/ MIKAEL GUZMAN CLINICAL PHARMACIST Signed: 12/09/2021 14:07 Dec 09, 2021 12:17 NURSING NOTE: ANTONY ESCOBAR J CT PM LOCAL TITLE: VAAES NSG IV INSERTION AND BESSY GONZALES [facility] STANDARD TITLE: NURSING NOTE DATE OF NOTE: DEC 09, 2021@12:17 ENTRY DATE: DEC 09, 2021@12:18:05 AUTHOR: ANTONY ESCOBAR COSIGNER: URGENCY: STATUS: COMPLETED Version 2.2 Charting in accordance with ME APPROVED ENTERPRI SE STANDARD (MEAES) ACUTE INPATIENT/REHABILITATION KENDRICK SING ADMISSION SCREENING, ASSESSMENT, AND STANDARDS OF CARE IV Line Insertion and Maintenance Midline Insertion: Date/Time: Nov@11:45 Indication(s): Antibiotics Lack of vascular access Location: Right, Basilic Lumens/Type: Single lumen Size (Yoruba): 18 Informed consent obtained from: Patient Procedure explained to patient: Emphasized risk s of infection, blood clots, bleeding, catheter embolism, inadvertent arteri al cannulation, and catheter breakage and benefits explained to patient. Pat ient voice understanding. Educational handout provided on Catheter-Associ ated Bloodstream Infections Frequently Asked Questions. Patient identified and Time Out performed: All team members present in the room, all other activities ceased, correct marilyn ent confirmed with 2 identifiers, procedure to be performed is confi rmed, consent obtained and verified, correct patient position verified, al l appropriate diagnostic/radiologic tests available, correct side and site marked and confirmed, all equipment available, all team me mbers verbally agree with information above. Staff witnessing Time Out (name): MADISYN Martínez Insertion preparation: Hand hygiene performed, cap worn by evp, s terile gown and sterile gloves worn by evp, mask worn by all prese nt, and draped patient in sterile fashion with large full body fenestrate d drape. Insertion site scrubbed with chlorhexidine Insertion Aids: Ultrasonic guided Comment: probe cover used Placement confirmed, catheter released for use Lot number: Brand: Baseline arm circumference (cm): /emely/ ANTONY ESCOBAR PHYSICIAN COMMANDING OFFICER GARAGE Signed: 12/09/2021 12:20 Dec 09, 2021 11:47 NURSING NOTE: CARLITOS ROLDAN [facility] TITLE: [facility] SKIN INSPECTION/ASSESSMENT [facility] STANDARD TITLE: NURSING NOTE DATE OF NOTE: DEC 09, 2021@11:47 ENTRY DATE: DEC 09, 2021@11:47:30 AUTHOR: CARLITOS ROLDAN EXP COSIGNER: URGENCY: STATUS: COMPLETED SKIN REINSPECTION/REASSESSMENT SKIN INSPECTION: Skin Color: Usual for ethnicity Skin Temperature: Warm Skin Moisture: Normal Skin Turgor: Elastic (normal/immediate) Nate Skin Assessment: The patient's Nate Scale Score is 20. The pat ient is considered not at risk for development of pressure ulcers/injurie s. Sensory perception -- ability to respond meanin gfully to pressure-related discomfort No impairment. Moisture -- degree to which skin is exposed to moisture Rarely moist. Activity -- ability to change and control body position Walks occasionally. Mobility -- ability to change and control body position No limitation. Nutrition -- usual food intake patterns Probably inadequate. Friction and shear No apparent problem. INTERVENTIONS: The pressure injury interventions were not need ed - patient/resident is not at risk. RISK FACTORS THAT INCREASE RISK FOR DEVELOPING PRESSURE INJURIES The patient/resident does not have any addition al risk factors. SKIN INTEGRITY: Intact /es/ CARLITOS ROLDAN Registered Nurse Signed: 12/09/2021 11:48 Dec 09, 2021 11:46 NURSING NOTE: CARLITOS ROLDAN [place] AM LOCAL TITLE: NURSING PROGRESS OTHER NOTE [facility] STANDARD TITLE: NURSING NOTE DATE OF NOTE: DEC 09, 2021@11:46 ENTRY DATE: DEC 09, 2021@11:46:47 AUTHOR: CARLITOS ROLDAN EXP COSIGNER: URGENCY: STATUS: COMPLETED Masimo/Safety Net YES - Applied site left hand /emely/ CARLITOS ROLDAN Registered Nurse Signed: 12/09/2021 11:47 Dec 09, 2021 11:42 NURSING INPATIENT NOTE: CARLITOS ROLDAN AM LOCAL TITLE: VAAES ACUTE INPATIENT NSG SHIFT SESSMENT [facility] STANDARD TITLE: NURSING INPATIENT NOTE DATE OF NOTE: DEC 09, 2021@11:42 ENTRY DATE: DEC 09, 2021@11:42:27 AUTHOR: CARLITOS ROLDAN EXP COSIGNER: URGENCY: STATUS: COMPLETED Version 2.2 Charting in accordance with ME APPROVED ENTERPRI SE STANDARD (MEAES) ACUTE INPATIENT/REHABILITATION NURSING ADMISSION SCREE JEROME, ASSESSMENT, AND STANDARDS OF CARE ASSESSMENT PAIN ASSESSMENT Are you currently experiencing pain? No Pain Score: 0 CHAVEZ FALL SCALE & TIPS PROGRAM Chavez Fall Scale: The Chavez Fall scale was performed and score wa s 20. This is indicative of low risk of falls. History of falling in past 3 months? No Secondary diagnosis: No Ambulatory aid: None/bedrest/nurse assist Intravenous therapy/Heparin lock: Yes Gait/Transferring: Normal/bed rest/immobile Mental Status: Oriented to own ability/knows own limitations Fall Tailoring Interventions for Patient Safety (TIPS) Fall TIPS initiated with patient: Yes Fall TIPS reviewed with patient: Yes ENVIRONMENTAL SAFETY MANAGEMENT Implemented safety standards of care: -[place] to unit & environment -Adequate room lighting -Bed in low and locked position -Call light within reach -Personal items within reach -Traffic path in room free of clutter -Non-slip footwear -Upper/half length side rails up for bed mobili ty -Sensory aids within reach -Encourage patient to utilize sensory support Isolation Type: Airborne NEUROLOGICAL Neurological Orientation: Oriented x4 Level of Consciousness (AVPU): Alert = Appears aware of and responsive to the environment on their own. Follows commands, open eyes spontaneously, and tract objects. Affect/behavior: Cooperative Calm NEUROMUSCULAR/NEUROVASCULAR EXTREMITIES ASSESSM ENT Strength: Nursing Clinical Director Bilateral: Strong Upper Extremity Bilateral: Full strength Lower Extremity Bilateral: Full strength CARDIOVASCULAR Heart Sounds: Normal (S1S2) Heart Rate/Rhythm (without hall monitor): Irregular RESPIRATORY Respirations: Unlabored Pattern: Regular Breath Sounds Auscultated: Anterior and posterior Right Upper Lobe: Clear Left Upper Lobe: Clear Right Middle Lobe: Diminished Right Lower Lobe: Diminished Left Lower Lobe: Clear Symptoms: Cough: Non-productive Supplemental Respiratory: Continuous Pulse Oximetry GASTROINTESTINAL Abdominal Description: Protuberant (central obesity) Palpation: Soft, Non-tender Bowel Sounds: RUQ: Active LUQ: Active RLQ: Active LLQ: Active GENITOURINARY Elimination: Continent INTEGUMENTARY/SKIN/WOUND - (INCLUDING NATE) SEE NOTE: VAAES SKIN INPECTION/ASSESSMENT ACTIVITIES OF DAILY LIVING Hygiene ADLs: Eating: Independent Oral Care: Non-ventilator patient: Patient teeth brushed: Independently Pericare: Independent Personal Care: Independent Toileting: Independent MOBILITY Mobility Status: Independent: IV LINES Peripheral IV: Line #1: Assessment: Location: Right, Antecubital Gauge: 20 Dressing Condition: Clean, dry, intact Transparent dressing Site Condition: Comment: erythema at site Line Status: Capped /emely/ CARLITOS ROLDAN Registered Nurse Signed: 12/09/2021 11:46 Dec 09, 2021 10:26 NUTRITION DIETETICS NOTE: [place]UZ [place] AM LOCAL TITLE: Nutrition Follow-Up Note [facility] STANDARD TITLE: NUTRITION DIETETICS NOTE DATE OF NOTE: DEC 09, 2021@10:26 ENTRY DATE: DEC 09, 2021@10:26:33 AUTHOR: CONY SANTACRUZ EXP COSIGNER: URGENCY: STATUS: COMPLETED Review of calorie count shows pt has had mostly poor po aside from eating well at lunch meal yesterday. Pt had an MBS this am, discussed with TECHNICAL SUPPORT AGENT. Pt will need thickened liquids and would prefer to do just liquids for now. Called and spoke w/ pt, he stated lunch was b krista but it's too much, he gets full quickly and this has been a struggle since the Fall. With hi s COVID precautions it's difficult to provide schedul ed snacks between meals so encouraged pt to save an items from his meals (like pudding or the high p rotein jello) to eat about an hour later. He self limits as he doesn't want to eat too much and be sick. SUBJECTIVE: Appetite: mostly poor, fair at best N/V/D/C: + nausea at times Chewing/swallowing problems: + dysphagia/odynoph agia per MBS Current Diet: Minced and Moist IVF: none currently Enteral/Parenteral Nutrition: none Skin Condition: no pressure sores noted Laboratory Data: Reviewed, BG has been well controlled Pertinent Medications: Active Inpatient Medications (excluding Supplies ): Active Inpatient Medications Status 4) CEFTRIAXONE 2GM/DEXTROSE 5% 50ML INJ,SOLN in ACTIVE CEFTRIAXONE 2GM/D5W 50 ML INFUSE OVER 30 MINUTE S IV QD 5) CHOLECALCIFEROL TAB 10MCG PO QD ACTIVE 7) ENOXAPARIN INJ 40MG/0.4ML SQ QD ACTIVE 8) FAMOTIDINE TAB 10MG PO BID ACTIVE 9) LOSARTAN TAB 12.5MG PO QD please hold if syst olic ACTIVE <90 10) MAGNESIUM OXIDE TAB 840MG PO ONCE ACTIVE 11) METRONIDAZOLE TAB 500MG PO TID ACTIVE 13) OMEPRAZOLE CAP,EC 20MG PO BID-AC ACTIVE 14) POTASSIUM CHLORIDE LIQUID,ORAL 30MEQ/22.5ML PO ONCE ACTIVE 15) REMDESIVIR INJ REMDESIVIR 100 MG in SODIUM C HLORIDE ACTIVE 0.9% INJ 100 ML INFUSE OVER 60 MINUTES IV QD 16) SERTRALINE TAB 150MG PO QD ACTIVE Food-Drug interactions: reviewed NUTRITION-FOCUSED PHYSICAL EXAM/ASSESSMENT Unable to perform nutrition-focused physical exa m/assessment Nutrition Vitals: Height: 72 in [182.9 cm] (03/05/2019 11:48) Frame Size: LARGE Weight: 233.7 lb [106.00 kg] (12/06/2021 21:43) Weight Hx: wt loss of 50 lbs in past 5 m onths; 43 lbs in past 3 months (15.5%) Hunter Weight: 196 lbs % Hunter Wt: 119% BODY MASS INDEX - 31.76 Estimated Nutrition Needs: Kilocalorie requirement: 2650 (25 kcals/kg) Protein requirement: 138 (1.3 gm/kg) Fluid requirement: (30-35 ml/kg) or per Team Nutrition Diagnosis: Unintentional weight loss ( ACTIVE) Related to: anorexia, nausea, diarrhea, SOB, swa llowing difficulty/discomfort with eating As evidenced by: 50 lbs weight loss in p ast 5 months, 43 lbs of that in past 3 months Nutrition Diagnosis: Inadequate oral intake (NEW ) Related to: difficulty/pain w/ swallowing, mostly poor appetite, nausea and abd discomfort at times, early satiety As evidenced by: significant wt loss, calorie count results showing pt unable to meet est needs ETIOLOGY: Physiological/Metabolic INTERVENTION/PLAN: Nutrition Prescription - Diet adjusted t o Full liquids w/ mildly thick liquids Food/nutrient delivery - --BG has been well controlled, will provide Ensu re Plus w/ meals (instead of Glucerna) as this supplies more kcals and protei n and will be main source of nutrition --No frozen items per TECHNICAL SUPPORT AGENT, subbed out w/ pudding and high protein jello (is a mildly thick item) --Cont calorie count --Encouraged focusing on the Ensure at meals and keeping an item for later consumption --Consider nutrition support if pt continues to be unable to meet even 75% of est needs Coordination of Nutrition care - team, TECHNICAL SUPPORT AGENT Monitoring/Evaluation: Food/nutrition related history outcomes - Pt will tolerate and consume >50% of meals and 2 Glucerna/day --->Not met, d/c New goal: Pt will consume en ough at meals to meet at least 75% of his est needs Anthropometric Measurement Outcomes- Avoid wt lo ss of >1.5 lbs/week during admission --->No new data, cont Recommended f/u: 3 days /emely/ Cony Santacruz RD Clinical Dietitian Signed: 12/09/2021 12:49 Dec 09, 2021 09:08 NURSING INPATIENT NOTE: [facility] TITLE: [facility] NURSING FREQUENT DOCUMENTATI ON L [facility] STANDARD TITLE: NURSING INPATIENT NOTE DATE OF NOTE: DEC 09, 2021@09:08 ENTRY DATE: DEC 09, 2021@09:08:52 AUTHOR: ANKUSH VAUGHN EXP COSIGNER: URGENCY: STATUS: COMPLETED Version 2.4 Charting in accordance with ME APPROVED ENTERPRI SE STANDARD ([facility]) ACUTE INPATIENT/REHABILITATION [facility] ADMISSION SCREENING, ASSESSMENT, AND STANDARDS OF CARE ACTIVITIES OF DAILY LIVING Hygiene ADLs: Comment: assisted patient to and from radiology anbd offered to assist with washing and patient refused. He accepted a summer n sascha and prefers johnnys opposed to pjs...room is quite warm /emely/ ANKUSH MONTOYA Signed: 12/09/2021 09:10 Dec 09, 2021 08:23 INTERNAL MEDICINE NOTE: [place] [facility] TITLE: General Internal Medicine Note [facility] STANDARD TITLE: INTERNAL MEDICINE NOTE DATE OF NOTE: DEC 09, 2021@08:23 ENTRY DATE: DEC 09, 2021@08:23:27 AUTHOR: ANTONY MCKEON EXP COSIGNER: ALVARO FELIZ URGENCY: STATUS: COMPLETED General Internal Medicine Note Has ADDENDA Date/Time of Admission: Nov 16:44 Allergies: LISINOPRIL Remote Allergy/ADR: RART - Remote Allergy/ADR No Remote Allergy/ADR Data available for this pa tient 24 hour events/subjective: -NAEO -Feeling better; endorsing less esophageal-like pain -still struggling to eat his modified minced and moist diet -will undergo barium swallow today Active Inpatient Medications (excluding Supplies ): Active Inpatient Medications Status 1) ALBUTEROL INHL,ORAL 2 PUFFS INHALATION ORAL Q ID PRN ACTIVE for breathing 2) AMLODIPINE TAB 5MG PO QD please hold if systo lic <90 ACTIVE 3) CARBOXYMETHYLCELLULOSE 0.5% SOLN,OPH ONE DROP OU QID ACTIVE 4) CEFTRIAXONE 2GM/DEXTROSE 5% 50ML INJ,SOLN in ACTIVE CEFTRIAXONE 2GM/D5W 50 ML INFUSE OVER 30 MINUTE S IV QD 5) CHOLECALCIFEROL TAB 10MCG PO QD ACTIVE 6) DICLOFENAC 1% GEL,TOP 4 GRAMS TO LOWER EXTREM ITIES ACTIVE TOP QID PRN for pain/inflammation 7) ENOXAPARIN INJ 40MG/0.4ML SQ QD ACTIVE 8) FAMOTIDINE TAB 10MG PO BID ACTIVE 9) LOSARTAN TAB 12.5MG PO QD please hold if syst olic ACTIVE <90 10) METRONIDAZOLE TAB 500MG PO TID ACTIVE 11) OLODATEROL/TIOTROPIUM INHL,ORAL 2 PUFFS INHA LATION ACTIVE ORAL QD 12) OMEPRAZOLE CAP,EC 20MG PO BID-AC ACTIVE 13) REMDESIVIR INJ REMDESIVIR 100 MG in SODIUM C HLORIDE ACTIVE 0.9% INJ 100 ML INFUSE OVER 60 MINUTES IV QD 14) SERTRALINE TAB 150MG PO QD ACTIVE Physical Exam: Vital signs (include range): DATE/TIME TEMP PULSE RESP BP PAIN WEIGHT 12/09/21 @ 0740 97.1 94 16 120/73 0 12/09/21 @ 0256 0 12/08/21 @ 2330 97.9 100 16 119/74 0 Ins/Outs: Weight: 233.7 lb [106.00 kg] (12/06/2021 21:43) General: NAD, laying in bed Head and Neck: supple neck Respiratory: Lungs sounds absent on right lower lobe; rhonchi in left field however slightly improved Cardiovascular: RRR, no MRG Abdomen/GI/: slightly distended and non tender today Musculoskeletal:no bony deformities Neurological: EOMI, II-XII grossly intact Psychiatric/Mental Status: appropiate affect Diagnostics Labs: SIGNIFICANT CHANGES: Lymph: 12.7 L -> 6.9 L over 2 days. [place]kin: 3.9 L -> 5.1 over 1 days. Eos: 0.2 L -> 0.7 over 1 days. Baso: 0.2 -> 0.3 over 1 days. Bands: 0.6 -> 1.0 H over 1 days. ANC: 4.5 -> 6.1 over 2 days. AMC: 0.3 -> 0.4 over 1 days. AEC: 0.0 L -> 0.1 over 1 days. BUN: 9 -> 6 L over 2 days. ANION GAP: 12 -> 8 over 3 days. TBil: 0.6 -> 0.4 over 1 days. HEMATOLOGY: 12/09/2021 07:09 12/08/2021 09:59 12/07/2021 06:51 \ 11.3 / \ 12.1 / \ 10.7 / 7.1 ------ 158 8.4 ------ 185 5.7 ------ 173 / 35.8 \ / 38.2 \ / 33.3 \ PMN: 86.0% H LYMPH: 6.9% L MONO: 5.1% EOS: 0.7% BASO: 0.3% BANDS: 1.0% H A.5 L MCV: 81.4 L RDW: 16.4 H MCH: 25.7 L Mentzer index of 18.50 (> 13, predictive of BETH) RETICULOCYTES (%) AUTOMATED: 1.23 RETABS: 0.052 @ 12/07/2021 06:00 CHEMISTRY: Dec 09, 2021@07:20 Dec 08, 2021@10:15 134 103 6 / 136 104 6 / 112 - 133 3.7 23 0.70 \ Gap: 12` 3.3 22 0.76 \ Ga p: 14` ` - corrected for albumin eGFR(CKD-EPI 2020): >90.0 Calcium: 8.1 L @ 2021 07:20 Corrected Calcium: 9.4 (alb 2.4 on Dec 07, 2021) @ 12/09/2021 07:20 Ma.6 @ 12/09/2021 07:20 Protein: 5.7 L Albumin: 2.4 L ALK: 109 ALT: 10 @ 12/07/2021 07:15 AST: 15 FIB-4 SCORE: 1.92 TBil: 0.4 @ 12/07/2021 07:15 BNP(P): 224.8 H TROPONIN II: 0.03 @ 12/06/2021 12 :00 URINE STUDIES: UA: Arlin/n/a LE n/a Protein 5 Ketones <2.0 Urob moe otherwise bland @ 12/06/2021 18:00 CLARITY: HAZY URINE PH: 5.0 PROTEIN, URINE: 30 @ 12/06/2021 18:00 WBC SCREEN: Neg RED BLOOD CELL/URINE: <1 @ 2021 18:00 WHITE BLOOD CELL/URINE: 3 HYALINE CAST: 5 H @ 18:00 MUCOUS/URINE: MANY @ 12/06/2021 18:00 OTHER: MRSA DNA (NARES): Neg @ 12/06/2021 21:45 COVID-19 AG SCRN(wrj BINAX)POSITIVE H* (NASAL CA VITY): Ref: @ 12/06/2021 12:00 FLU A(PCR) (NASOPHARYNX): Neg @ 12/06/2021 12:00 FLU B(PCR) (NASOPHARYNX): Neg @ 12/06/2021 12:00 RSV(PCR) (NASOPHARYNX): Neg @ 12/06/2021 12:00 COVID-19([id number])DETECTED H* (NASOPHAR YNX): Ref: @ 12/06/2021 12:00 TREND DATA: WBC HGB HCT PLT MCV ======= 7.1 11.3 35.8 158 81.4 @ 12/09/2021 07:09 8.4 12.1 38.2 185 80.4 @ 12/08/2021 09:59 5.7 10.7 33.3 173 80.2 @ 12/07/2021 06:51 7.2 12.4 39.6 180 81.5 @ 12/06/2021 12:00 PMN Lymph [place] Eos Baso Bands ======= 86.0 6.9 5.1 0.7 0.3 1.0 @ 12/09/2021 07:09 89.4 5.7 3.9 0.2 0.2 0.6 @ 12/08/2021 09:59 78.3 12.7 7.0 0.4 0.4 1.2 @ 12/07/2021 06:51 82.1 9.7 7.0 0.1 0.3 0.8 @ 12/06/2021 12:00 Na K Cl CO2 AG BUN Cr Ca Mg ======= 134 3.7 103 23 8 6 0.70 8.1 1.6 @ 12/09/2021 07:2 0 136 3.3 104 22 10 6 0.76 8.4 1.5 @ 12/08/2021 10: 15 135 3.5 103 22 10 9 0.73 8.0 @ 12/07/2021 07:15 138 3.8 103 23 12 13 0.90 8.7 @ 12/06/2021 12:00 AST ALT AlkP TBil Alb Prtn ======= 15 10 109 0.4 2.4 5.7 @ 12/07/2021 07:15 18 13 134 0.6 2.8 6.6 @ 12/06/2021 12:00 Glucose ======= 112 07:20 @ 12/09/2021 133 10:15 @ 12/08/2021 92 07:15 @ 12/07/2021 105 12:00 @ 12/06/2021 SG Blood Nitr Gluc Keto Bili Urobi ======= 1.029 - - - 5 - <2.0 @ 12/06/2021 18:00 MICRO: LAC - pending @ 12/06/2021 15:30 LAC - pending @ 12/06/2021 15:30 Imagin12/09/2021 DELISA (MODIFIED) CPT Code: 08607 Exam Case Number: [id number] Exam Status: WAITING FOR EXAM EKG: Assessment: 71 year old MALE with a history of Stage IIIa adenocarcinoma EGFR/ALK negative s/p chemotherapy/radiation/d ervalumab, COPD, diverticulitis s/p partial colonic resection, chronic low back pain s/p discectomy here for a 6 month history of 70 pound unintentional weight loss, fatigue, weakne ss, anorexia, odynophagia, myalgias, intermittent diarrhea and gene ral malaise alongside a 10 day history acutely of increased sputum production, SOB, and recent COVID+ with symptomatology concerning for aspiration PNA [place] valerie recurrence of primary malignancy. The patient's co nstellation of symptoms ranging from increased SOB, weakness, fatigue, and 70 pound weight loss(298. 4lb on 05/16/2021-->232.6lb today) are concerning for a recurrence of malign jose armando given the radiologic evidence that shows potential progression and michelle jalloh new pleural fluid at the right hemithorax. Another potential etiology how ever is the patient's odynophagia that he suggests has worsened over t he past several days with CT findings concerning for larg e volume aspiration event per radiologic impression. These findings are additiona lly compounded by his COVID+ test and therefore the plan is to start remdesivir today with continued tretament subsequently for the next 4 days alongside empirical abx for PNA(ceft riaxone and metronidazole). Additionally will benefit from continued ID cons ultant perspective and pulmonology consult to dicuss utility of procedu res(thoracentesis vs. bronchoscopy). We will also monitor blood cultur es for growth. 12/09: Patient is undergoing barium swallow to determine degree of dysphagia and additionally there is consideration of s witching his ABx regimen from IV to PO per ID recs contigent on barium swallow. He is p resently on Antibiotic course day 4.Patient has improving microcytic anemia. Currently still being treated for aspiration pneumonia. Will continue to replete p otassium and magnesium today. Tentatively discharge over the weekend pending c oordination of care and continued treatment of aspiration pneumonia. PLAN: #SOB #aspiration PNA? -Ceftriaxone 2 g/day + metronidazole 500 mg IV/P O q 8(6-69-cfvaevs day) -appreciate pulmonology consult -appreciate ID recs: Stop ce ftriaxone and Flagyl and start Augmentin at the dose of 875 mg PO twice daily to complete a total of 7 days of therapy if can tolerate PO per barium swallow. #COVID+ -Remdesivir 200 mg IV once(12/06) and 100 mg IV q d(12/07-present) -Respiratory isolation -appreciate ID recs -repeat cycle threshold on discharge #ODYNOPHAGIA -Speech and swallow evaluation today -minced and moist diet -barium swallow on 12/09 #COPD -home inhaler regimen #HTN -continue home amlodipine and losartan #GERD -continue PPI home regimen #depression -continue home sertraline #other home meds -continue cholecalciferol -continue diclofenac gel - VTE prophylaxis: [ X] Lovenox 40mg SC daily [ ] Lovenox 30mg SC daily (CrCl <30 but not on HD) [ ] Heparin 5000units SC TID (ESRD or other Soniya enox contraindication) [ ] Other pharmacologic VTE prophylaxis: [ ] Patient declines VTE pharmacologic prophyla xis despite discussion of VTE risk [ ] Very high risk for VTE (Critical Illness, s troke) thus both pharmacologic prophylaxis and Venodynes applied [ ] Pharmacologic prophylaxis contraindicated d ue to: [ ] SCD/Venodynes applied [ ] SCD/ Venodynes contraindicated due to leg w ounds, delirium concers [ ] Patient declines Venodynes /es/ ATNONY MCKEON Resident Physician Signed: 12/09/2021 10:51 /emely/ ALVARO VARGHESE MD DIRECTOR OF AMBULATORY CARDIOLOGY Cosigned: 12/09/2021 11:10 12/09/2021 ADDENDUM STATUS: COMPLETED Pt discussed and seen with raven parikh on rounds this morning. I agree with assessment and plan as outlined. He does indeed endorse feeling better today--he reports less dyspnea (he has been minimally active given his COVID precaution s, though) and less chest pain/epigastric pain (none upon awakending this AM), but symptoms were exacerbated by the eating he did for the modifie d barium swallow, he tells us (delayed symptoms). +nausea persists, but no vomiting. 3 formed BM's yesterday (a change from the very loose stools he reported over the last several months), and just one so far th is AM. Awaiting MBS results (and will adjust PO directions accordingly), but if OK-ed for his PO pills, will change to Augment in to continue his course for presumed aspiration pneumonia and he could possibly be re angie for discharge over the weekend. Team will call to update his as well. /emely/ ALVARO VARGHESE MD DIRECTOR OF AMBULATORY CARDIOLOGY Signed: 12/09/2021 11:13 12/09/2021 ADDENDUM STATUS: COMPLETED In the afternoon we spoke with speech pathologis t who discussed that patient grossly aspirated on initial sip of modified bar ium swallow. Will tentaively consult ENT for possible fiber optics to determi ne if swallowing abnormality related to vocal folds given long standing histo ry of tobacco use(102 pack years). Will also attempt to speak with ID to revisit utility in repeating PCR for COVID precautions and assessing cycl e threshold to see if patient can come off precautions.Patient now on full liquid and mildly thicke diet. Pills will be given crushed in applesauce or similar consisten cy. /emely/ ANTONY MCKEON Resident Physician Signed: 12/09/2021 11:54 /emely/ ALVARO VARGHESE MD DIRECTOR OF AMBULATORY CARDIOLOGY Cosigned: 12/09/2021 12:17 Dec 09, 2021 07:10 STUDENT NOTE: CELENA KENNY AM LOCAL TITLE: Medical Student Note [facility] STANDARD TITLE: STUDENT NOTE DATE OF NOTE: DEC 09, 2021@07:10 ENTRY DATE: DEC 09, 2021@07:11:04 AUTHOR: CELENA KENNY I EXP COSIGNER: DARLENE VARGHESE URGENCY: STATUS: COMPLETED PROGRESS NOTE ID: Mr. Lucas Meek is a 71 year old male [employer] with a history of Stage IIIa adenocarcinoma of the lung s/p chemot herapy/radiation/dervalumab, COPD, diverticulitis s/p partial colonic resection, chronic low back pain s/p discectomy, 90 pack year hx of smoking, etoh abuse disorder, here for a subacute history of 70 pound unintentional weight loss, fatigue, weakness, anorexia, a nicole p constant pain in his chest radiating to his abdomen that is relieved by lyi ng flat, myalgias, persistant diarrhea and general malais e over the last six months, alongside an acute 10 day history of increased W OB, fatigue, sputum production, following recent COVID+ test on home kit after recent sick contact exposure, found to still be COVID+ here in our ED now hospital day 4 being treated for aspiration pneumonia vs malign jose armando. 24 hours: Yesterday speech and swallow was consulted who's impression was that Mr. Meek is having on going esophageal spasm/dism otility at this time, placed on minced and moist diet and will eval uate with modified barium swallow today. Continue to treat his current presentati on as an aspiration event vs. COVID pneumonia based on radiogrpahic evidence, he has completed 3 days of ceftriaxone/metronidazole + remdesivir. ID rec. is to Stop ceftriaxone and F lagyl and start Augmentin at the dose of 875 mg PO twice daily to com plete a total of 7 days of therapy and continue remdesivir 2 more days including today. At this time patient cannot swallow pills. Suspicion still high for malignan cy recurrance, got in contact with his outpatient oncologist who reccomends a PET scan in the outpatient setting after DC. No acute events overnight, VSS. SUBJECTIVE: This morning he says he is feeling m uch better- don't feel as lousyhas not had any episodes of diarrhea or vo mitting, no palpitations or lightheadedness, no pain at rest , but difficulty eating any food. His last bowel movement was yesterday and well formed. PE: Vitals: T 97.5, P 90, RR 16, BP 122/76 General: Tired appearing, in no acute distress Head and Neck: supple neck with no evidence of l ymphadenopathy Respiratory: Lungs sounds absent on right, end i nspiratory rhonchi heard throughout left lung duvall, slightly improved f rom yesterday Cardiovascular: RRR, no MRG Abdomen/GI/: slightly distended and tender dif fusley to palpation Musculoskeletal:no bony deformities Neurological: EOMI, II-XII grossly intact Psychiatric/Mental Status: appropiate affect LABS CBC ths morning still shows microcytic a nemia, although now uptrending to 11.3 from 10.7 yesterday. ASSESSMENT Mr. Lucas Meek is a 71 year old male [facility] with a history of Stage IIIa adenocarcinoma of the lung currently being treated for aspiration pneumonia vs. COVID pneumonia with possible recu rrance of malignancy. Pierre's radiographic findings of food particulate in his airways, enlarging hiatal hernia, frewuent burp ring on exam, and speech and swallow impressions of esophageal mismotility are c onsistent with acute vs. chronic aspiration event/s causing his pulmonary symptoms. His recent COVID + infection may have exacerbated an already on go ing chronic issue with airway maintenance. However, he never had a leukocytosis or fever, and aspiration event alone cannot explain his dramatic weight loss, fa tgiue, full body mylagias etc. He is now s/p 3 days of IV antibipoitcs, on his 4th day, with some terry bjective measures of improvement. Pierre's history of cancer in the context of a 70 pound untintentional weight loss, fatigue, full body long ns, and imaging findings of new 1.5cm solid adrenal mass are concerning for recurrance of malignancy . Decreased PO intake and prolonged diarrh ea could be the etiology of his weight loss and fatigue could be nutrition malabsorptio n seconary to the persistent diarrhea he has been experie nci for 6 months. This could additionally explain his hypoalbuiemia and anemia. PLAN #SOB #aspiration - Continue the ceftriaxone 2g QD, metron idazole 500mg Q8 until patient able to swallow pills - Transition to 875 mg PO twice daily augmentin once he can swallow #COVID+ -Remdesivir 100 mg IV qd x 2 more days -Respiratory isolation -appreciate ID recs #Weight loss #Fatigue - Updated Dr. Cameron at [facility] - PET scan outpatient #ODYNOPHAGIA -Speech and swallow evaluation appreictaed -Minced and moist diet -modified barium swallow today #COPD -home inhaler regimen #HTN -continue home amlodipine and losartan #GERD -continue PPI home regimen #Hypokalemia/hypomagnesemia - replete K to 4, Mg to 2 #depression -continue home sertraline #other home meds -continue cholecalciferol -continue diclofenac gel /es/ CELENA KENNY I Medical Student Signed: 12/09/2021 10:42 /es/ ALVARO VARGHESE MD DIRECTOR OF AMBULATORY CARDIOLOGY Cosigned: 12/10/2021 11:14 Dec 08, 2021 11:30 NURSING NOTE: SIOMARA SANTACRUZ J[place] PM LOCAL TITLE: VAAES SKIN INSPECTION/ASSESSMENT [facility] STANDARD TITLE: NURSING NOTE DATE OF NOTE: DEC 08, 2021@23:30 ENTRY DATE: DEC 09, 2021@02:36:35 AUTHOR: SIOMARA SANTACRUZ EXP COSIGNER: URGENCY: STATUS: COMPLETED SKIN REINSPECTION/REASSESSMENT SKIN INSPECTION: Skin Color: Usual for ethnicity Skin Temperature: Warm Skin Moisture: Normal Skin Turgor: Elastic (normal/immediate) Nate Skin Assessment: The patient's Nate Scale Score is 19. The pat ient is considered not at risk for development of pressure ulcers/injurie s. Sensory perception -- ability to respond meanin gfully to pressure-related discomfort No impairment. Moisture -- degree to which skin is exposed to moisture Rarely moist. Activity -- ability to change and control body position Walks occasionally. Mobility -- ability to change and control body position No limitation. Nutrition -- usual food intake patterns Very poor. Friction and shear No apparent problem. INTERVENTIONS: The pressure injury interventions were not need ed - patient/resident is not at risk. RISK FACTORS THAT INCREASE RISK FOR DEVELOPING PRESSURE INJURIES The patient/resident does not have any addition al risk factors. SKIN ALTERATIONS: Pressure Ulcer/Injury Documentation from the sc st year: No data available Localized abnormality: Other: Location(s): LEFT HEEL BOGGINESS RESOLVED /es/ SIOMARA SANTACRUZ REGISTERED NURSE Signed: 12/09/2021 02:50 Dec 08, 2021 08:02 NURSING INPATIENT NOTE: SIOMARA SANTACRUZ I [place] [facility] TITLE: VAAES ACUTE INPATIENT NSG SHIFT SESSMENT [facility] STANDARD TITLE: NURSING INPATIENT NOTE DATE OF NOTE: DEC 08, 2021@20:02 ENTRY DATE: DEC 08, 2021@20:02:42 AUTHOR: SIOMARA SANTACRUZ EXP COSIGNER: URGENCY: STATUS: COMPLETED VAAES ACUTE INPATIENT NSG SHIFT ASSESSMENT Has ADDENDA Version 2.2 Charting in accordance with [facility] ENTERPRI SE STANDARD (MEAES) ACUTE INPATIENT/REHABILITATION NURSING ADMISSION PENNY CANO, ASSESSMENT, AND STANDARDS OF CARE ASSESSMENT HANDOFF Safety check completed Comment: PATIENT ASLEEP IN BED DURING CHANGE OF SHIFT PAIN ASSESSMENT Are you currently experiencing pain? No Pain Score: 0 CHAVEZ FALL SCALE & TIPS PROGRAM Chavez Fall Scale: The Chavez Fall scale was performed and score wa s 35. This is indicative of moderate risk for falls. History of falling in past 3 months? No Secondary diagnosis: Yes Ambulatory aid: None/bedrest/nurse assist Intravenous therapy/Heparin lock: Yes Gait/Transferring: Normal/bed rest/immobile Mental Status: Oriented to own ability/knows own limitations Fall Tailoring Interventions for Patient Safety (TIPS) Fall TIPS initiated with patient: Yes Fall TIPS reviewed with patient: No ENVIRONMENTAL SAFETY MANAGEMENT Implemented safety standards of care: -[place] to unit & environment -Adequate room lighting -Bed in low and locked position -Call light within reach -Personal items within reach -Traffic path in room free of clutter -Non-slip footwear -Upper/half length side rails up for bed mobili ty -Sensory aids within reach -Encourage patient to utilize sensory support Isolation Type: Airborne Other: Specify: SARS-COV-2 PRECAUTIONS Education reinforced for patient/family/caregiv er/visitor related to isolation precautions/actions required. NEUROLOGICAL Neurological Orientation: Oriented x4 Level of Consciousness (AVPU): Alert = Appears aware of and responsive to the environment on their own. Follows commands, open eyes spontaneously, and tract objects. Affect/behavior: Cooperative Calm Reynoso Agitation Sedation Scale (RASS): 0 Alert and calm Neurological-Aspiration Risk Assessment: None NEUROMUSCULAR/NEUROVASCULAR EXTREMITIES ASSESSM ENT Strength: Nursing Clinical Director Bilateral: Strong Upper Extremity Bilateral: Full strength Lower Extremity Bilateral: Full strength Sensation: Upper Extremity Sensation Bilateral: Intact Lower Extremity Sensation Bilateral: Intact Temperature: Upper Extremity Temperature Bilateral: Warm Lower Extremity Temperature Bilateral: Warm CARDIOVASCULAR Heart Sounds: Normal (S1S2) Heart Rate/Rhythm (without hall monitor): 91, Irregular Peripheral Pulses: All 4 extremities, 3+ normal. Edema: None Cardiovascular - Embolism Prevention: Comment: ENOXAPARIN RESPIRATORY Respirations: Unlabored Pattern: Regular Breath Sounds Auscultated: Posterior only Right Upper Lobe: Clear, Diminished Left Upper Lobe: Clear Right Middle Lobe: Clear, Diminished Right Lower Lobe: Clear, Diminished Left Lower Lobe: Clear Supplemental Respiratory: Continuous Pulse Oximetry Incentive Spirometry: Maximum volume achieved (mL): 1000 Times performed: 10 GASTROINTESTINAL Last bowel movement: 12/08/21 X 3 DURING THE DAYSHIFT PER PATIENT Bowel movement reported by patient-unwitnessed Stool: Description: Soft Color: Brown Amount: Elimination: Continent Abdominal Description: Rounded Palpation: Soft, Non-tender Bowel Sounds: RUQ: Active LUQ: Active RLQ: Active LLQ: Active GENITOURINARY Elimination: Continent ACTIVITIES OF DAILY LIVING Hygiene ADLs: Dressing: Upper Body: Independent Lower Body: Independent Eating: Independent, MINCED MOIST THIN Diet, TAKES PILL S CRUSHED IN APPLE SAUCE, NO COLD DRINKS PER SPEECH CONSULT 12/08/21 Foot Care: Inspection Pericare: Independent Personal Care: Independent Toileting: Independent Supplemental Activities of Daily Living: Sleep: Sleep quality: Easily returns to sleep after waking Sleep interruptions: Wakened for medical care MOBILITY Mobility Status: Independent: Able to stand and step without staff assistance Steady standing balance Gait: Steady IV LINES Peripheral IV: Line #1: Assessment: Location: Right, Antecubital Gauge: 18 Dressing Condition: Clean, dry, intact Site Condition: No redness, swelling, pain Line Status: Patent/infusing Capped Flushed PSYCHOSOCIAL Type of Emotional Support Provided: Ventilation of feelings encouraged /es/ SIOMARA Heather SANTACRUZ REGISTERED NURSE Signed: 12/09/2021 03:45 12/09/2021 ADDENDUM STATUS: COMPLETED CORRECTION Version 2.2 Charting in accordance with ME APPROVED ENTERPRI SE STANDARD (MEAES) ACUTE INPATIENT/REHABILITATION KENDRICK SING ADMISSION SCREENING, ASSESSMENT, AND STANDARDS OF CARE CHAVEZ FALL SCALE & TIPS PROGRAM Chavez Fall Scale: The Chavez Fall scale was performed and score wa s 60. This is indicative of high risk for falls. History of falling in past 3 months? Yes Secondary diagnosis: Yes Ambulatory aid: None/bedrest/nurse assist Intravenous therapy/Heparin lock: Yes Gait/Transferring: Normal/bed rest/immobile Mental Status: Oriented to own ability/knows own limitations /es/ SIOMARA B NOAM REGISTERED NURSE Signed: 12/09/2021 08:45 Dec 08, 2021 04:53 INFECTIOUS DISEASE NOTE: FILI JONES [facility] LOCAL TITLE: Infectious Disease Note [facility] STANDARD TITLE: INFECTIOUS DISEASE NOTE DATE OF NOTE: DEC 08, 2021@16:53 ENTRY DATE: DEC 08, 2021@16:53:17 AUTHOR: FILI JONES EXP COSIGNER: URGENCY: STATUS: COMPLETED Short ID follow-up note: The patient was not seen today 24 hour events/subjective: As per the medical te am's note -Still endorsing esophageal discomfort -some abdominal discomfort noted today on AM int erview -had BM well formed Seen by the speech therapist who recommended wor k-up for dysphagia and minced diet Labs WBC NL crea 0.76 A&P: Mr. Lucas Meek is a 71 year old with a history of Stage IIIa adenocarcinoma of the lung (EGFR/ALK negative) s /p chemotherapy/radiation/dervalumab, COPD, diverti culitis s/p partial colonic resection, chronic low back pain s/p discectomy, 90 pack year hx of smoking, alcohol use disorder, who was admitted for a sub acute history of 70 pound unintentional weight loss, fatigue, weak ness, anorexia, odynophagia, myalgias, persistent diarrhea and general malaise over the last six months, alongside an acute 10 day history of increased WOB, fatigue, sputum production, concerning for recurrence of malignancy or lung abscess. Im aging revealed findings suggestive of aspiration broncho-pneumon ia. Despite testing + for COVID-19, we sugegsted treating for an aspiration pneumonia, currently on ceftriaxone and Flagyl (December 07). Suggest: Continue remdesivir to complete a 5 days course Stop ceftriaxone and Flagyl and start Au gmentin at the dose of 875 mg PO twice daily to complete a total of 7 days of therapy. Laura Jones /emely/ FILI JONES Infectious Diseases Signed: 12/08/2021 16:55 Dec 08, 2021 12:49 INTERNAL MEDICINE NOTE: ANTONY MCKEON [facility] LOCAL TITLE: General Internal Medicine Note [facility] STANDARD TITLE: INTERNAL MEDICINE NOTE DATE OF NOTE: DEC 08, 2021@12:49 ENTRY DATE: DEC 08, 2021@12:53:53 AUTHOR: ANTONY MCKEON EXP COSIGNER: ALVARO FELIZ URGENCY: STATUS: COMPLETED Date/Time of Admission: Nov 16:44 Allergies: LISINOPRIL Remote Allergy/ADR: RART - Remote Allergy/ADR No Remote Allergy/ADR Data available for this pa josé luis 24 hour events/subjective: -NAEO -Still endorsing esophageal discomfort -some abdominal discomfort noted today on AM int erview -had BM well formed -Was seen by speech pathology today -Speech pathology to do barium swallow tomorow Active Inpatient Medications (excluding Supplies ): Active Inpatient Medications Status 1) ALBUTEROL INHL,ORAL 2 PUFFS INHALATION ORAL Q ID PRN ACTIVE for breathing 2) AMLODIPINE TAB 5MG PO QD please hold if systo lic <90 ACTIVE 3) CARBOXYMETHYLCELLULOSE 0.5% SOLN,OPH ONE DROP OU QID ACTIVE 4) CEFTRIAXONE 2GM/DEXTROSE 5% 50ML INJ,SOLN in ACTIVE CEFTRIAXONE 2GM/D5W 50 ML INFUSE OVER 30 MINUTE S IV QD 5) CHOLECALCIFEROL TAB 10MCG PO QD ACTIVE 6) DICLOFENAC 1% GEL,TOP 4 GRAMS TO LOWER EXTREM ITIES ACTIVE TOP QID PRN for pain/inflammation 7) ENOXAPARIN INJ 40MG/0.4ML SQ QD ACTIVE 8) LOSARTAN TAB 12.5MG PO QD please hold if syst olic ACTIVE <90 9) MAGNESIUM OXIDE TAB 840MG PO ONCE ACTIVE 10) METRONIDAZOLE TAB 500MG PO TID ACTIVE 11) OLODATEROL/TIOTROPIUM INHL,ORAL 2 PUFFS INHA LATION ACTIVE ORAL QD 12) OMEPRAZOLE CAP,EC 20MG PO BID-AC ACTIVE 13) POTASSIUM CHLORIDE LIQUID,ORAL 40MEQ/30ML PO ONCE ACTIVE 14) REMDESIVIR INJ REMDESIVIR 100 MG in SODIUM C HLORIDE ACTIVE 0.9% INJ 100 ML INFUSE OVER 60 MINUTES IV QD 15) SERTRALINE TAB 150MG PO QD ACTIVE Physical Exam: Vital signs (include range): DATE/TIME TEMP PULSE RESP BP PAIN WEIGHT 12/08/21 @ 1037 0 12/08/21 @ 0555 97.5 106 16 122/76 0 12/08/21 @ 0352 0 Ins/Outs: Weight: 233.7 lb [106.00 kg] (12/06/2021 21:43) General: NAD, laying in bed Head and Neck: supple neck Respiratory: Lungs sounds absent on right lower lobe; rhonchi in left field Cardiovascular: RRR, no MRG Abdomen/GI/: slightly distended and tender dif fusely Musculoskeletal:no bony deformities Neurological: EOMI, II-XII grossly intact Psychiatric/Mental Status: appropiate affect Diagnostics Labs: SIGNIFICANT CHANGES: Glucose: 92 -> 133 H over 1 days. BUN: 9 -> 6 L over 1 days. WBC: 5.7 -> 8.4 over 1 days. Lymph: 12.7 L -> 5.7 L over 1 days. [place]: 7.0 -> 3.9 L over 1 days. Eos: 0.4 -> 0.2 L over 1 days. Baso: 0.4 -> 0.2 over 1 days. Bands: 1.2 H -> 0.6 over 1 days. ANC: 4.5 -> 7.5 over 1 days. AMC: 0.5 -> 0.3 over 2 days. TBil: 0.6 -> 0.4 over 1 days. HEMATOLOGY: 12/08/2021 09:59 12/07/2021 06:51 12/06/2021 12:00 \ 12.1 / \ 10.7 / \ 12.4 / 8.4 ------ 185 5.7 ------ 173 7.2 ------ 180 / 38.2 \ / 33.3 \ / 39.6 \ PMN: 89.4% H LYMPH: 5.7% L MONO: 3.9% L EOS: 0.2 % L BASO: 0.2% BANDS: 0.6% A.5 L MCV: 80.4 L RDW: 16.4 H MCH: 25.5 L Mentzer index of 16.93 (> 13, predictive of BETH) WBC rise of 47% (5.7 -> 8.4) over 1 days RETICULOCYTES (%) AUTOMATED: 1.23 RETABS: 0.052 @ 12/07/2021 06:00 CHEMISTRY: Dec 08, 2021@10:15 Dec 07, 2021@07:15 136 104 6 / 135 103 9 / 133 - 92 3.3 22 0.76 \ Gap: 14` 3.5 22 0.73 \ Ga p: 14` ` - corrected for albumin eGFR(CKD-EPI 2020): >90.0 Calcium: 8.4 L @ 2021 10:15 Corrected Calcium: 9.7 (alb 2.4 on Dec 07, 2021) @ 12/08/2021 10:15 Ma.5 L @ 12/08/2021 10:15 Protein: 5.7 L Albumin: 2.4 L ALK: 109 ALT: 10 @ 12/07/2021 07:15 AST: 15 FIB-4 SCORE: 1.92 TBil: 0.4 @ 12/07/2021 07:15 BNP(P): 224.8 H TROPONIN II: 0.03 @ 12/06/2021 12 :00 URINE STUDIES: UA: Arlin/n/a LE n/a Protein 5 Ketones <2.0 Urob moe otherwise bland @ 12/06/2021 18:00 CLARITY: HAZY URINE PH: 5.0 PROTEIN, URINE: 30 @ 12/06/2021 18:00 WBC SCREEN: Neg RED BLOOD CELL/URINE: <1 @ 2021 18:00 WHITE BLOOD CELL/URINE: 3 HYALINE CAST: 5 H @ 18:00 MUCOUS/URINE: MANY @ 12/06/2021 18:00 OTHER: MRSA DNA (NARES): Neg @ 12/06/2021 21:45 COVID-19 AG SCRN(wrj BINAX)POSITIVE H* (NASAL CA VITY): Ref: @ 12/06/2021 12:00 FLU A(PCR) (NASOPHARYNX): Neg @ 12/06/2021 12:00 FLU B(PCR) (NASOPHARYNX): Neg @ 12/06/2021 12:00 RSV(PCR) (NASOPHARYNX): Neg @ 12/06/2021 12:00 COVID-19(GZR-[id number])DETECTED H* (NASOPHAR YNX): Ref: @ 12/06/2021 12:00 TREND DATA: WBC HGB HCT PLT MCV ======= 8.4 12.1 38.2 185 80.4 @ 12/08/2021 09:59 5.7 10.7 33.3 173 80.2 @ 12/07/2021 06:51 7.2 12.4 39.6 180 81.5 @ 12/06/2021 12:00 PMN Lymph [place] Eos Baso Bands ======= 89.4 5.7 3.9 0.2 0.2 0.6 @ 12/08/2021 09:59 78.3 12.7 7.0 0.4 0.4 1.2 @ 12/07/2021 06:51 82.1 9.7 7.0 0.1 0.3 0.8 @ 12/06/2021 12:00 Na K Cl CO2 AG BUN Cr Ca Mg ======= 136 3.3 104 22 10 6 0.76 8.4 1.5 @ 12/08/2021 10: 15 135 3.5 103 22 10 9 0.73 8.0 @ 12/07/2021 07:15 138 3.8 103 23 12 13 0.90 8.7 @ 12/06/2021 12:00 AST ALT AlkP TBil Alb Prtn ======= 15 10 109 0.4 2.4 5.7 @ 12/07/2021 07:15 18 13 134 0.6 2.8 6.6 @ 12/06/2021 12:00 Glucose ======= 133 10:15 @ 12/08/2021 92 07:15 @ 12/07/2021 105 12:00 @ 12/06/2021 SG Blood Nitr Gluc Keto Bili Urobi ======= 1.029 - - - 5 - <2.0 @ 12/06/2021 18:00 MICRO: LAC - pending @ 12/06/2021 15:30 LAC - pending @ 12/06/2021 15:30 Imagin12/06/2021 CT THORAX W/O CONT CPT Code: 57835 Interpreting Staff: JESSIE CHENEY Interpreting Res.: PRINCE CHAMPION Exam Case Number: [id number] Exam Status: COMPLETE Rpt Status: VERIFIED Technologist: DARVIN GASTELUM Reason for Study: Opacification right chest History: No contrast allergy BUN: 13 (12/06/21 12:00) CREATI: 0.90 (12/06/21 12:00) eGFR 05/16/21 09:43 52 L Weight: 232.6 lb [105.51 kg] (12/06/2021 11:40) BODY MASS INDEX - NO HEIGHTS FOUND Pager number: [phone] STAT orders MUST be called t o RADIOLOGY [phone] to speak to the appropriate septic tank service technician. Indications - Other: Opacification right chest, covid positive, lung cancer histo Report: CT THORAX W/O CONT COMPARISON: chest [...] stem bronchus. The residual aerated pulmonary parenchymal demo nstrates scattered consolidative and mixed attenuation o pacities along with scattered, basilar predominant calcificati ons. The left lung is clear. No pneumothorax. Cardiomediastinum, Malu, lymph nodes and soft t issues: Significant rightward mediastinal shift, previo usly mild. No pathologically enlarged mediastinal lymph nodes . Mediastinal fat is preserved. Normal noncontrast appearance of the esophagus with a small hiatal hernia. Normal ca rdiac size. Scattered coronary artery and aortic calcificat ions. No thoracic aortic aneurysm. Upper Abdomen: New 1.5 cm soft tissue density l eft adrenal lesion, (series 4 image 306). Decreased size of 2 right adrenal gland lesions, measuring 1.9 and 3.3 cm respectively, previously 2.3 and 4.4 cm respectively, (series 4 images 301 and 273). Miscellaneous: None Musculoskeletal: No suspicious lytic or blastic osseous lesions. No acute osseous findings. Similar mul tilevel degenerative changes of the visualized thoracol umbar spine, most prominent from T4 to T10 with flowing ante rolateral enthesophytes, facet arthropathy and mild disc space narrowing. No acute osseous findings. Impression: 1. A probable majority [...] swallow with speech pathology to evaluate patient's air way protection abilities and aspiration risk as this examinati on suggests the patient is highly susceptible to aspiration jeffrey nts. 2. New 1.4 cm left adrenal solid lesion. Consider mult iphase CT or MRI for more definitive characterization. DX Codes: NO IMMEDIATE ATTENTION REQUIRED EKG: Assessment: 71 year old MALE with a history of Stage IIIa adenocarcinoma EGFR/ALK negative s/p chemotherapy/radiation/d ervalumab, COPD, diverticulitis s/p partial colonic resection, chronic low back pain s/p discectomy here for a 6 month history of 70 pound unintentional weight loss, fatigue, weakne ss, anorexia, odynophagia, myalgias, intermittent diarrhea and gene ral malaise alongside a 10 day history acutely of increased sputum production, SOB, and recent COVID+ with symptomatology concerning for aspiration PNA [place] recurrence of primary malignancy. The patient's co nstellation of symptoms ranging from increased SOB, weakness, fatigue, and 70 pound weight loss(298. 4lb on 05/16/2021-->232.6lb today) are concerning for a recurrence of malign jose armando given the radiologic evidence that shows potential progression and li yeimi new pleural fluid at the right hemithorax. Another potential etiology how ever is the patient's odynophagia that he suggests has worsened over t he past several days with CT findings concerning for larg e volume aspiration event per radiologic impression. These findings are additiona lly compounded by his COVID+ test and therefore the plan is to start remdesivir today with continued tretament subsequently for the next 4 days alongside empirical abx for PNA(ceft riaxone and metronidazole). Additionally will benefit from continued ID cons ultant perspective and pulmonology consult to dicuss utility of procedu res(thoracentesis vs. bronchoscopy). We will also monitor blood cultur es for growth. 12/08: The patient on AM inte rview endorsed continued somatic symptoms described above. Based on current speech pathology consult/impression the odynophagia is likely related more with eso phageal spasm and we will convert diet to moist and minced with a planned barium swallow tomorrow to assess definitive dysphagia pathology. We will no longer puruse abdominal MR I will instead consider PET scan. ID recommends that patient throughout stay remains on COVID precaution however based on cycle threshold(e.g >40) COVID pcr repeat we can determineif patient could come off COVID precautions upon discharge likely early next week. PLAN: #SOB #aspiration PNA? -Ceftriaxone 2 g/day + metronidazole 500 mg IV/P O q 8 -appreciate pulmonology consult #COVID+ -Remdesivir 200 mg IV once and 100 mg IV qd x 4 more days -Respiratory isolation -appreciate ID recs -repeat cycle threshold on discharge #ODYNOPHAGIA -Speech and swallow evaluation today -minced and moist diet -barium swallow tomorrow on 12/09 #COPD -home inhaler regimen #HTN -continue home amlodipine and losartan #GERD -continue PPI home regimen #depression -continue home sertraline #other home meds -continue cholecalciferol -continue diclofenac gel - VTE prophylaxis: [ X] Lovenox 40mg SC daily [ ] Lovenox 30mg SC daily (CrCl <30 but not on HD) [ ] Heparin 5000units SC TID (ESRD or other Soniya enox contraindication) [ ] Other pharmacologic VTE prophylaxis: [ ] Patient declines VTE pharmacologic prophyla xis despite discussion of VTE risk [ ] Very high risk for VTE (Critical Illness, s troke) thus both pharmacologic prophylaxis and Venodynes applied [ ] Pharmacologic prophylaxis contraindicated d ue to: [ ] SCD/Venodynes applied [ ] SCD/ Venodynes contraindicated due to leg w ounds, delirium concers [ ] Patient declines Venodynes /es/ ANTONY MCKEON Resident Physician Signed: 12/08/2021 13:27 /emely/ ALVARO VARGHESE MD DIRECTOR OF AMBULATORY CARDIOLOGY Cosigned: 12/08/2021 13:33 Dec 08, 2021 10:42 NURSING NOTE: CARLITOS ROLDAN AM LOCAL TITLE: VAS SKIN INSPECTION/ASSESSMENT [facility] STANDARD TITLE: NURSING NOTE DATE OF NOTE: DEC 08, 2021@10:42 ENTRY DATE: DEC 08, 2021@10:42:32 AUTHOR: CARLITOS ROLDAN EXP COSIGNER: URGENCY: STATUS: COMPLETED SKIN REINSPECTION/REASSESSMENT SKIN INSPECTION: Skin Color: Usual for ethnicity Skin Temperature: Warm Skin Moisture: Normal Skin Turgor: Elastic (normal/immediate) Nate Skin Assessment: The patient's Nate Scale Score is 18. The pat ient is at mild risk for development of pressure ulcer/injury. Sensory perception -- ability to respond meanin gfully to pressure-related discomfort Slightly limited. Moisture -- degree to which skin is exposed to moisture Rarely moist. Activity -- ability to change and control body position Walks occasionally. Mobility -- ability to change and control body position No limitation. Nutrition -- usual food intake patterns Very poor. Friction and shear No apparent problem. INTERVENTIONS: The pressure injury interventions were not need ed - patient/resident is not at risk. RISK FACTORS THAT INCREASE RISK FOR DEVELOPING PRESSURE INJURIES The patient/resident does not have any addition al risk factors. Localized abnormality: Other: Location(s): left heel boggy, blanchable erythe roseanna /emely/ CARLITOS ROLDAN Registered Nurse Signed: 12/08/2021 10:44 Dec 08, 2021 10:37 NURSING INPATIENT NOTE: CARLITOS ROLDAN AM LOCAL TITLE: VAS ACUTE INPATIENT NSG SHIFT SESSMENT [facility] STANDARD TITLE: NURSING INPATIENT NOTE DATE OF NOTE: DEC 08, 2021@10:37 ENTRY DATE: DEC 08, 2021@10:37:30 AUTHOR: CARLITOS ROLDAN COSIGNER: URGENCY: STATUS: COMPLETED Version 2.2 Charting in accordance with ME APPROVED ENTERPRI SE STANDARD (VAAES) ACUTE INPATIENT/REHABILITATION NURSING ADMISSION SCREE JEROME, ASSESSMENT, AND STANDARDS OF CARE ASSESSMENT PAIN ASSESSMENT Are you currently experiencing pain? No Pain Score: 0 CHAVEZ FALL SCALE & TIPS PROGRAM Chavez Fall Scale: The Chavez Fall scale was performed and score wa s 35. This is indicative of moderate risk for falls. History of falling in past 3 months? No Secondary diagnosis: Yes Ambulatory aid: None/bedrest/nurse assist Intravenous therapy/Heparin lock: Yes Gait/Transferring: Normal/bed rest/immobile Mental Status: Oriented to own ability/knows own limitations Fall Tailoring Interventions for Patient Safety (TIPS) Fall TIPS initiated with patient: Yes Fall TIPS reviewed with patient: Yes ENVIRONMENTAL SAFETY MANAGEMENT Implemented safety standards of care: -[place] to unit & environment -Adequate room lighting -Bed in low and locked position -Call light within reach -Personal items within reach -Traffic path in room free of clutter -Non-slip footwear -Upper/half length side rails up for bed mobili ty -Sensory aids within reach -Encourage patient to utilize sensory support Isolation Type: Airborne NEUROLOGICAL Neurological Orientation: Oriented x4 Level of Consciousness (AVPU): Alert = Appears aware of and responsive to the environment on their own. Follows commands, open eyes spontaneously, and tract objects. Affect/behavior: Cooperative Calm NEUROMUSCULAR/NEUROVASCULAR EXTREMITIES ASSESSM ENT Strength: Nursing Clinical Director Bilateral: Strong Upper Extremity Bilateral: Full strength Lower Extremity Bilateral: Full strength Sensation: Upper Extremity Sensation Bilateral: Intact Lower Extremity Sensation Bilateral: Decreased Comment: Temperature: Upper Extremity Temperature Bilateral: Warm Lower Extremity Temperature Bilateral: Warm CARDIOVASCULAR Heart Sounds: Normal (S1S2) Heart Rate/Rhythm (without hall monitor): Irregular Peripheral Pulses: All 4 extremities, 3+ normal. Edema: Present Generalized Location: feet bilaterally - trace RESPIRATORY Respirations: Unlabored Pattern: Regular Breath Sounds Auscultated: Anterior and posterior Left Upper Lobe: Clear Right Upper Lobe: Clear Right Middle Lobe: Clear Left Lower Lobe: Clear Right Lower Lobe: Clear Symptoms: Cough: Non-productive Supplemental Respiratory: Continuous Pulse Oximetry GASTROINTESTINAL Abdominal Description: Rounded Palpation: Soft, Non-tender Bowel Sounds: RUQ: Active LUQ: Active RLQ: Active LLQ: Active Symptoms: Nausea GENITOURINARY Elimination: Continent Color/Characteristic: Arlin INTEGUMENTARY/SKIN/WOUND - (INCLUDING NATE) SEE NOTE: VAAES SKIN INPECTION/ASSESSMENT ACTIVITIES OF DAILY LIVING Hygiene ADLs: Foot Care: Inspection Pericare: Independent Toileting: Independent /es/ CARLITOS ROLDAN Registered Nurse Signed: 12/08/2021 10:42 Dec 08, 2021 10:36 NURSING NOTE: CARLITOS ROLDAN [place] AM LOCAL TITLE: NURSING PROGRESS OTHER NOTE [facility] STANDARD TITLE: NURSING NOTE DATE OF NOTE: DEC 08, 2021@10:36 ENTRY DATE: DEC 08, 2021@10:37:02 AUTHOR: CARLITOS ROLDAN COSIGNER: URGENCY: STATUS: COMPLETED Masimo/Safety Net YES - Applied site left hand /emely/ CARLITOS ROLDAN Registered Nurse Signed: 12/08/2021 10:37 Dec 08, 2021 10:36 NURSING INPATIENT NOTE: CARLITOS ROLDAN [place] LOCAL TITLE: [facility] NURSING FREQUENT DOCUMENTATI ON [facility] STANDARD TITLE: NURSING INPATIENT NOTE DATE OF NOTE: DEC 08, 2021@10:36 ENTRY DATE: DEC 08, 2021@10:36:34 AUTHOR: CARLITOS ROLDAN EXP COSIGNER: URGENCY: STATUS: COMPLETED Version 2.4 Charting in accordance with ME APPROVED ENTERPRI SE STANDARD (MEAES) ACUTE INPATIENT/REHABILITATION KENDRICK SING ADMISSION SCREENING, ASSESSMENT, AND STANDARDS OF CARE ENVIRONMENTAL SAFETY MANAGEMENT Implemented safety standards of care: -[place] to unit & environment -Adequate room lighting -Bed in low and locked position -Call light within reach -Personal items within reach -Traffic path in room free of clutter -Non-slip footwear -Upper/half length side rails up for bed mobili ty -Sensory aids within reach -Encourage patient to utilize sensory support ORAL INTAKE (PERCENTAGE OF MEAL EATEN) Breakfast: 1% - 25% /emely/ CARLITOS ROLDAN Registered Nurse Signed: 12/08/2021 10:36 Dec 08, 2021 08:00 NURSING NOTE: SIOMARA SANTACRUZ [facility] TITLE: Nursing Care Plan/Reevaluation B [facility] STANDARD TITLE: NURSING NOTE DATE OF NOTE: DEC 08, 2021@08:00 ENTRY DATE: DEC 08, 2021@09:38 AUTHOR: SIOMARA SANTACRUZ EXP COSIGNER: URGENCY: STATUS: COMPLETED Nursing Care Plan/Reevaluation Has ADDENDA Nursing Plan Of Care Evaluation Nursing Diagnoses: DIAGNOSES Activity Intolerance Status:Active Related to: Other: SARS-COVS-2 AND POSSIBLE ASPI RATION PNEUMONIA Comments:PATIENT REPORTS SHORTNESS OF BREATH WIT H AMBULATION. CONTINUE TO MONITOR PATIENT'S AMBULATORY STATUS AND O2 SATUR ATION WITH ACTIVITY, APPLY SUPPLEMENTAL O2 NEEDED AND ALERT PROVIDER - Risk For Aspiration Status:Active Impaired swallowing Comments: PATIENT IS ADMITTED WITH POSSIBLE ASPI RATION PNEUMONIA. USE ASPIRATION PRECAUTIONS WITH EATING AND DRINKING. PATIENT DEMONSTRATED DIFFICULTY SWALLOWING PILLS AND REPORTS PAIN WITH SWALLOWING WHICH HAS MADE IT DIFFICULT TO EAT AND DRINK FOR 6 MONTHS. NO SIGNS/SYMPTOMS OF FUNGAL INFECTION IN MOUTH. SPEECH CONSULT HAS BEEN INITIATED - Safety Deficit Status:Active Comments: PATIENT REPORTS A FALL LAST WEEK AND F EELING UNSTEADY TONIGHT. BED ALARM TAKEN OFF BECAUSE PATIENT HAS BEEN APPROPRIATE WITH CALL TAPIA. PATIENT ASKED TO CALL FOR NURSING ASSISTANCE BEFORE EXITING BED. CONTINUE TO MONITOR AMBULATO RY STATUS /emely/ SIOMARA SANTACRUZ REGISTERED NURSE Signed: 12/08/2021 09:43 12/09/2021 ADDENDUM STATUS: COMPLETED Nursing Plan Of Care Evaluation Nursing Diagnoses: DIAGNOSES Activity Intolerance Status:Active Related to: Other: SARS-COVS-2 AND POSSIBLE ASPI RATION PNEUMONIA Comments:PATIENT REPORTS THAT HE NO LONGER HAS S HORTNESS OF BREATH WITH AMBULATION FOR SHORT DISTANCE. CONTINUE TO MONITOR PATIENT'S AMBULATORY STATUS AND O2 SATURATION WITH ACTIVITY, APPLY SUPPLEMEN EMILY O2 NEEDED AND ALERT PROVIDER - Risk For Aspiration Status:Active Impaired swallowing Comments: PATIENT IS ADMITTED WITH POSSIBLE ASPI RATION PNEUMONIA. USE ASPIRATION PRECAUTIONS WITH EATING AND DRINKING. PATIENT DEMONSTRATED DIFFICULTY SWALLOWING PILLS AND REPORTS PAIN WITH SWALLOWING WHICH HAS MADE IT DIFFICULT TO EAT AND DRINK FOR 6 MONTHS. NO SIGNS/SYMPTOMS OF FUNGAL INFECTION IN MOUTH. SPEECH CONSULT HAS BEEN INITIATED AND MARTHA SWALLOW SCHEDULED - Safety Deficit Status:Active Comments: PATIENT REPORTS A FALL LAST WEEK AND FELT UNSTEADY ON ADMISSION WHICH HAS RESOLVED. BED ALARM NOT ON BECAUSE PATIENT H BEEN APPROPRIATE WITH CALL TAPIA AND STEADY ON HIS FEET. PATIENT ASKED TO CA LL FOR NURSING ASSISTANCE BEFORE EXITING BED. CONTINUE TO MONITOR AMBULATO RY STATUS /emely/ SIOMARA SANTACRUZ REGISTERED NURSE Signed: 12/09/2021 02:55 12/10/2021 ADDENDUM STATUS: COMPLETED Activity Intolerance Status:Active Related to: Other: SARS-COVS-2 AND POSSIBLE ASPI RATION PNEUMONIA Comments:PATIENT REPORTS THAT HE NO LONGER HAS S HORTNESS OF BREATH WITH AMBULATION FOR SHORT DISTANCE. CONTINUE TO MONITOR PATIENT'S AMBULATORY STATUS AND O2 SATURATION WITH ACTIVITY, APPLY SUPPLEMEN EMILY O2 NEEDED AND ALERT PROVIDER - Risk For Aspiration Status:Active Impaired swallowing Comments: PATIENT IS ADMITTED WITH POSSIBLE ASPI RATION PNEUMONIA. USE ASPIRATION PRECAUTIONS WITH EATING AND DRINKING. PATIENT DEMONSTRATED DIFFICULTY SWALLOWING PILLS AND REPORTS PAIN WITH SWALLOWING WHICH HAS MADE IT DIFFICULT TO EAT AND DRINK FOR 6 MONTHS. NO SIGNS/SYMPTOMS OF FUNGAL INFECTION IN MOUTH. SPEECH CONSULT HAS BEEN INITIATED AND MARTHA SWALLOW SCHEDULED - Safety Deficit Status:Active Comments: PATIENT REPORTS A FALL LAST WEEK AND FELT UNSTEADY ON ADMISSION WHICH HAS RESOLVED. BED ALARM NOT ON BECAUSE PATIENT H BEEN APPROPRIATE WITH CALL TAPIA AND STEADY ON HIS FEET. PATIENT ASKED TO CA [facility] FOR NURSING ASSISTANCE BEFORE EXITING BED. CONTINUE TO MONITOR AMBULATO RY STATUS /es/ ANGELA MINOR Registered Nurse Signed: 12/10/2021 07:59 12/12/2021 ADDENDUM STATUS: COMPLETED Activity Intolerance Status:Active Related to: Other: SARS-COVS-2 AND POSSIBLE ASPI RATION PNEUMONIA Comments:PATIENT REPORTS THAT HE NO LONGER HAS S HORTNESS OF BREATH WITH AMBULATION FOR SHORT DISTANCE. CONTINUE TO MONITOR PATIENT'S AMBULATORY STATUS AND O2 SATURATION WITH ACTIVITY, APPLY SUPPLEMEN EMILY O2 NEEDED AND ALERT PROVIDER - Risk For Aspiration Status:Active Impaired swallowing Comments: PATIENT IS ADMITTED WITH POSSIBLE ASPI RATION PNEUMONIA. USE ASPIRATION PRECAUTIONS WITH EATING AND DRINKING. PATIENT DEMONSTRATED DIFFICULTY SWALLOWING PILLS AND REPORTS PAIN WITH SWALLOWING WHICH HAS MADE IT DIFFICULT TO EAT AND DRINK FOR 6 MONTHS. NO SIGNS/SYMPTOMS OF FUNGAL INFECTION IN MOUTH. SPEECH CONSULT HAS BEEN INITIATED AND BARRIUM SWALLOW SCHEDULED - Safety Deficit Status:Active Comments: PATIENT REPORTS A FALL LAST WEEK AND FELT UNSTEADY ON ADMISSION WHICH HAS RESOLVED. BED ALARM NOT ON BECAUSE PATIENT H BEEN APPROPRIATE WITH CALL TAPIA AND STEADY ON HIS FEET. PATIENT ASKED TO CA [facility] FOR NURSING ASSISTANCE BEFORE EXITING BED. CONTINUE TO MONITOR AMBULATO RY STATUS /emely/ FRANCINE MILLS Staff Nurse Signed: 12/12/2021 00:25 12/13/2021 ADDENDUM STATUS: COMPLETED Activity Intolerance Status:Active Related to: Other: SARS-COVS-2 AND POSSIBLE ASPI RATION PNEUMONIA Comments:PATIENT REPORTS THAT HE NO LONGER HAS S HORTNESS OF BREATH WITH AMBULATION FOR SHORT DISTANCE. CONTINUE TO MONITOR PATIENT'S AMBULATORY STATUS AND O2 SATURATION WITH ACTIVITY, APPLY SUPPLEMEN EMILY O2 NEEDED AND ALERT PROVIDER - Risk For Aspiration Status:Active Impaired swallowing Comments: PATIENT IS ADMITTED WITH POSSIBLE ASPI RATION PNEUMONIA. USE ASPIRATION PRECAUTIONS WITH EATING AND DRINKING. PATIENT DEMONSTRATED DIFFICULTY SWALLOWING PILLS AND REPORTS PAIN WITH SWALLOWING WHICH HAS MADE IT DIFFICULT TO EAT AND DRINK FOR 6 MONTHS. NO SIGNS/SYMPTOMS OF FUNGAL INFECTION IN MOUTH. SPEECH CONSULT HAS BEEN INITIATED AND BARRIUM SWALLOW SCHEDULED - Safety Deficit Status:Active Comments: PATIENT REPORTS A FALL LAST WEEK AND FELT UNSTEADY ON ADMISSION WHICH HAS RESOLVED. BED ALARM NOT ON BECAUSE PATIENT H BEEN APPROPRIATE WITH CALL TAPIA AND STEADY ON HIS FEET. PATIENT ASKED TO CA [facility] FOR NURSING ASSISTANCE BEFORE EXITING BED. CONTINUE TO MONITOR AMBULATO RY STATUS /emely/ FRANCINE MILLS Staff Nurse Signed: 12/13/2021 00:41 12/14/2021 ADDENDUM STATUS: COMPLETED Nursing Plan Of Care Evaluation Nursing Diagnoses: DIAGNOSES Activity Intolerance Status: Active Related to: Other: SARS-COVS-2 AND POSSIBLE ASPI RATION PNEUMONIA Comments:PATIENT REPORTS THAT HE NO LONGER HAS S HORTNESS OF BREATH WITH AMBULATION FOR SHORT DISTANCE. CONTINUE TO MONITOR PATIENT'S AMBULATORY STATUS AND O2 SATURATION WITH ACTIVITY, APPLY SUPPLEMEN EMILY O2 NEEDED AND ALERT PROVIDER - Risk For Aspiration Status: Active Impaired swallowing Comments: PATIENT IS ADMITTED WITH POSSIBLE ASP IRATION PNEUMONIA. USE ASPIRATION PRECAUTIONS WITH EATING AND DRINKING. PATIENT DEMONSTRATED DIFFICULTY SWALLOWING PILLS AND REPORTS PAIN WITH SWALLOWING WHICH HAS MADE IT DIFFICULT TO EAT AND DRINK FOR 6 MONTHS. NO SIGNS/SYMPTOMS OF FUNGAL INFECTION IN MOUTH. SPEECH CONSULT HAS BEEN INITIATED AND BARRIUM SWALLOW SCHEDULED - Safety Deficit Status: Active Comments: PATIENT REPORTS A FALL LAST WEEK AND FELT UNSTEADY ON ADMISSION WHICH HAS RESOLVED. BED ALARM NOT ON BECAUSE PATIENT H BEEN APPROPRIATE WITH CALL TAPIA AND STEADY ON HIS FEET. PATIENT ASKED TO CA [facility] FOR NURSING ASSISTANCE BEFORE EXITING BED. CONTINUE TO MONITOR AMBULATO RY STATUS /emely/ AMY SWEET Registered Nurse Signed: 12/14/2021 00:14 12/15/2021 ADDENDUM STATUS: COMPLETED Nursing Plan Of Care Evaluation Nursing Diagnoses: DIAGNOSES Activity Intolerance Status: Active Related to: Other: SARS-COVS-2 AND POSSIBLE ASPI RATION PNEUMONIA Comments:PATIENT REPORTS THAT HE NO LONGER HAS S HORTNESS OF BREATH WITH AMBULATION FOR SHORT DISTANCE. CONTINUE TO MONITOR PATIENT'S AMBULATORY STATUS AND O2 SATURATION WITH ACTIVITY, APPLY SUPPLEMEN EMILY O2 NEEDED AND ALERT PROVIDER - Risk For Aspiration Status: Active Impaired swallowing Comments: PATIENT IS ADMITTED WITH POSSIBLE ASP IRATION PNEUMONIA. USE ASPIRATION PRECAUTIONS WITH EATING AND DRINKING. PATIENT DEMONSTRATED DIFFICULTY SWALLOWING PILLS AND REPORTS PAIN WITH SWALLOWING WHICH HAS MADE IT DIFFICULT TO EAT AND DRINK FOR 6 MONTHS. NO SIGNS/SYMPTOMS OF FUNGAL INFECTION IN MOUTH. SPEECH CONSULT HAS BEEN INITIATED AND BARRIUM SWALLOW SCHEDULED - Safety Deficit Status: Active Comments: PATIENT REPORTS A FALL LAST WEEK AND FELT UNSTEADY ON ADMISSION WHICH HAS RESOLVED. BED ALARM NOT ON BECAUSE PATIENT H BEEN APPROPRIATE WITH CALL TAPIA AND STEADY ON HIS FEET. PATIENT ASKED TO CA [facility] FOR NURSING ASSISTANCE BEFORE EXITING BED. CONTINUE TO MONITOR AMBULATO RY STATUS /emely/ AMY SWEET Registered Nurse Signed: 12/15/2021 00:02 12/15/2021 ADDENDUM STATUS: COMPLETED Nursing Plan Of Care Evaluation Nursing Diagnoses: DIAGNOSES Activity Intolerance Status: Improving Related to: Other: SARS-COVS-2 AND POSSIBLE ASPI RATION PNEUMONIA Comments:PATIENT REPORTS THAT HE NO LONGER HAS S HORTNESS OF BREATH WITH AMBULATION FOR SHORT DISTANCE. CONTINUE TO MONITOR PATIENT'S AMBULATORY STATUS AND O2 SATURATION WITH ACTIVITY, APPLY SUPPLEMEN EMILY O2 NEEDED AND ALERT PROVIDER - Risk For Aspiration Status: Active Impaired swallowing Comments: PATIENT IS ADMITTED WITH POSSIBLE ASP IRATION PNEUMONIA. USE ASPIRATION PRECAUTIONS WITH EATING AND DRINKING. PATIENT DEMONSTRATED DIFFICULTY SWALLOWING PILLS AND REPORTS PAIN WITH SWALLOWING WHICH HAS MADE IT DIFFICULT TO EAT AND DRINK FOR 6 MONTHS. NO SIGNS/SYMPTOMS OF FUNGAL INFECTION IN MOUTH. SPEECH CONSULT HAS BEEN INITIATED AND BARRIUM SWALLOW SCHEDULED - Safety Deficit Status: Active Comments: Patient did not experience any falls d uring this stay. /emely/ TERRANCE ZAMORA registered nurse Signed: 12/15/2021 12:23 Receipt Acknowledged By: 12/15/2021 12:29 /emely/ CARLITOS ROLDAN Registered Nurse Dec 08, 2021 07:58 INFECTIOUS DISEASE NURSING NOTE: [facility] AM LOCAL TITLE: Infection Control Nursing Note [facility] STANDARD TITLE: INFECTIOUS DISEASE NURSING NOTE DATE OF NOTE: DEC 08, 2021@07:58 ENTRY DATE: DEC 08, 2021@07:58:26 AUTHOR: ROXANNE MOLINA EXP COSIGNER: URGENCY: STATUS: COMPLETED Mr. Meek tested positive for covid, and per re view of his chart symptoms started approximately 11/26/21 (10 days p rior to presenting to the ED). Current CDC guidelines recommend isolation for 1 0 days with symptom onset being day 0, and that he has been fever free for at least 24 hours and symptoms are improving. Since he was admitted with worsening respiratory symptoms, ID/IP recommends that he remain on isolation precautio ns until symptoms steadily improving. Given that PCR on admission was posit mark and he is on isolation he does not need a repeat covid-19 screening test o n day 3 of his admission. The screening order was discontinued. /emely/ ROXANNE MOLINA [employer] GOODS DRILLING MACHINE OPERATOR Signed: 12/08/2021 08:06 Dec 08, 2021 07:07 STUDENT NOTE: CELENA KENNY CT AM LOCAL TITLE: Medical Student Note [facility] STANDARD TITLE: STUDENT NOTE DATE OF NOTE: DEC 08, 2021@07:07 ENTRY DATE: DEC 08, 2021@07:08:05 AUTHOR: CELENA KENNY I EXP COSIGNER: DARLENE VARGHESE URGENCY: STATUS: COMPLETED Medical Student Note Has ADDENDA PROGRESS NOTE ID: Mr. Lucas Meek is a 71 year old male [employer] with a history of Stage IIIa adenocarcinoma of the lung s/p chemot herapy/radiation/dervalumab, COPD, diverticulitis s/p partial colonic resection, chronic low back pain s/p discectomy, 90 pack year hx of smoking, etoh abuse disorder, here for a subacute history of 70 pound unintentional weight loss, fatigue, weakness, anorexia, a nicole p constant pain in his chest radiating to his abdomen that is relieved by lyi ng flat, myalgias, persistant diarrhea and general malais e over the last six months, alongside an acute 10 day history of increased W OB, fatigue, sputum production, following recent COVID+ test on home kit after recent sick contact exposure, found to still be COVID+ here in our ED. 24 hours: Yesterday pulm was consulted who feels the best course at this time would be to continue to treat his current presentation as an aspiration event based on radiogrpahic evidence. Suspicion still high for malignancy recurrance, defer bronchoscopy at this time. As per the pulm note: - Recommend speech therapy for dietary recommend ations. - No acute indications for aggressive interventi on. - Complete full course of presumed aspiration pn eumonia - No aggressive intervention indicated at this t eliezer. Also consulted ID who advises to continue the re mdesevir and antibitics for aspiration coverage, they do not advise re-testi ng for covid at this time. Seen by speech and swallow who advises he be put on liquid diet, avoid ice. No acute events overnight, VSS. SUBJECTIVE: This morning he says he is f eeling about the same as yesterday. He has not had any episodes of diarrhea or vomittin g, no palpitations or lightheadedn ess, but does endorse that same sharp pain radiating from his chest down into his abdomen. He had a formed solid bowel movement this morning but still feels he is unable to eat anyt edilma. PE: Vitals: T 97.5, P 90, RR 16, BP 122/76 General: Tired appearing, lots of burpring Head and Neck: supple neck with some likely evid ent right palpable lymphadenopathy Respiratory: Lungs sounds absent on right, end i nspiratory rhonchi heard throughout left lung duvall, slightly improved f rom yesterday Cardiovascular: RRR, no MRG Abdomen/GI/: slightly distended and tender dif fusley to palpation Musculoskeletal:no bony deformities Neurological: EOMI, II-XII grossly intact Psychiatric/Mental Status: appropiate affect LABS Remarkable for hypoalbuminemia of 2.4, microcyti c anemia of 10.7.---YESTERDAY Pending today. ASSESSMENT Mr. Lucas Meek is a 71 year old male [employer] with a history of Stage IIIa adenocarcinoma of the lung (EGFR/ALK negative) s/p chemotherapy/radiation/dervalumab, COPD, diverti culitis s/p partial colonic resection, chronic low back pain s/p discectomy, 90 pack year hx of smoking, etoh abuse disorder, here for a subacute history of 70 pound unintentional weight loss, fatigue, weakness, anorexia, odynop hagia, myalgias, persistant diarrhea and general malais e over the last six months, alongside an acute 10 day history of increased W OB, fatigue, sputum production, conerning for recurrance of m alignancy vs. COVID pneumonia Vs. aspiration pneumonia. Pierre's history of cancer in the context of a 70 pound untintentional weight loss, fatigue, full body pains, and imaging find ings of new right sided fluid accumulation are concerning for a recurrance of his malignancy. His CT findings on admission furthermore revealed a new 1.5cm so lid adrenal mass. Pulmonolgy feels that his radiographic findings show eviden ce of food particulate in the airways and not neccessarily evidence of maligna ncy, and given his other radiogrpahic findings of lar ge hiatal hernia and frequent burpiring on exam with pain radiating from his throat down into his abdomen, it is likely that Pierre's presentation is in fact consistant with aspirati on penumonia secondary to subacute GI dismotility. Decreased PO intake and prolonged diarrh ea could be the etiology of his weight loss and fatigue could be nutrition malabsorptio n seconary to the persistent diarrhea he has been experie nci for 6 months. This could additionally explain his hypoalbuiemia and anemia. PLAN #Weight loss #Fatigue - Consult oncology physician Dr. Cameron at [facility] [place] - Abdominal MRI order #SOB #aspiration -Ceftriaxone 2 g/day + metronidazole 500 mg IV/P O q 8 #COVID+ -Remdesivir 200 mg IV once and 100 mg IV qd x 4 more days -Respiratory isolation -appreciate ID recs #[id number] -Speech and swallow evaluation appreictaed -Minced and moist diet -modified barium swallow tomorrow #COPD -home inhaler regimen #HTN -continue home amlodipine and losartan #GERD -continue PPI home regimen #Hypokalemia/hypomagnesemia - replete K to 4, Mg to 2 #depression -continue home sertraline #other home meds -continue cholecalciferol -continue diclofenac gel /emely/ CELENA KENNY I Medical Student Signed: 12/08/2021 10:32 /emely/ ALVARO VARGHESE MD DIRECTOR OF AMBULATORY CARDIOLOGY Cosigned: 12/08/2021 13:33 12/08/2021 ADDENDUM STATUS: COMPLETED Pt seen and discussed with team. Mr. Meek is about the same as yesterday clinic ally. He is hemodynamically stable and 02 on RA is 96%. Plan as outlined in note, except: For weight loss/fatigue: likely multifactorial, secondary to his thoracic/esophageal discomfort, worsened by eati ng as well as possibly malignancy related. We plan to communicate with his primary oncologist at , Dr. Cameron, to keep him in the loop and to plot further workup steps (such as follow up CT after empiric treatment for presumed aspiratio n pneumonia, further evaluation of new finding of adrenal mass--MRI vs PET...) with him (likely done after discharge. /emely/ ALVARO VARGHESE MD DIRECTOR OF AMBULATORY CARDIOLOGY Signed: 12/08/2021 13:43 Dec 07, 2021 11:00 NURSING NOTE: SIOMARA SANTACRUZ [place] LOCAL TITLE: VAAES SKIN INSPECTION/ASSESSMENT [facility] STANDARD TITLE: NURSING NOTE DATE OF NOTE: DEC 07, 2021@23:00 ENTRY DATE: DEC 08, 2021@02:56:37 AUTHOR: SIOMARA SANTACRUZ EXP COSIGNER: URGENCY: STATUS: COMPLETED SKIN REINSPECTION/REASSESSMENT SKIN INSPECTION: Skin Color: Usual for ethnicity Skin Temperature: Warm Skin Moisture: Normal Skin Turgor: Elastic (normal/immediate) Nate Skin Assessment: The patient's Nate Scale Score is 19. The pat ient is considered not at risk for development of pressure ulcers/injurie s. Sensory perception -- ability to respond meanin gfully to pressure-related discomfort No impairment. Moisture -- degree to which skin is exposed to moisture Rarely moist. Activity -- ability to change and control body position Walks occasionally. Mobility -- ability to change and control body position Slightly limited. Nutrition -- usual food intake patterns Probably inadequate. Friction and shear No apparent problem. INTERVENTIONS: The pressure injury interventions were not need ed - patient/resident is not at risk. RISK FACTORS THAT INCREASE RISK FOR DEVELOPING PRESSURE INJURIES The patient/resident does not have any addition al risk factors. SKIN ALTERATIONS: Pressure Ulcer/Injury Documentation from the sc st year: No data available Localized abnormality: Other: Location(s): LEFT HEEL BOGGINESS AND BLANCHABLE REDNESS IMPROVING /es/ SIOMARA SANTACRUZ REGISTERED NURSE Signed: 12/08/2021 03:02 Dec 07, 2021 08:24 NURSING INPATIENT NOTE: SIOMARA [place]ANTACRUZ [place] LOCAL TITLE: [facility] ACUTE INPATIENT NSG [facility] STANDARD TITLE: NURSING INPATIENT NOTE DATE OF NOTE: DEC 07, 2021@20:24 ENTRY DATE: DEC 07, 2021@20:24:12 AUTHOR: SIOMARA SANTACRUZ EXP COSIGNER: URGENCY: STATUS: COMPLETED Version 2.2 Charting in accordance with [facility] ENTERPR[facility] SE STANDARD (MEAES) ACUTE INPATIENT/REHABILITATION NURSING ADMISSION [place], ASSESSMENT, AND STANDARDS OF CARE ASSESSMENT HANDOFF Safety check completed Comment: PATIENT RESTING IN BED ON RIGHT SIDE WATCHING T V DURING CHANGE OF SHIFT WITHOUT ANY COMPLAINTS OF SHORTNESS OF BREATH O R PAIN PAIN ASSESSMENT Are you currently experiencing pain? No Pain Score: 0 CHAVEZ FALL SCALE & TIPS PROGRAM Chavez Fall Scale: The Chavez Fall scale was performed and score wa s 85. This is indicative of high risk for falls. History of falling in past 3 months? Yes Secondary diagnosis: Yes Ambulatory aid: Crutches/cane(s)/walker Intravenous therapy/Heparin lock: Yes Gait/Transferring: Weakness Mental Status: Oriented to own ability/knows own limitations Fall Tailoring Interventions for Patient Safety (TIPS) Fall TIPS initiated with patient: Yes Fall TIPS reviewed with patient: No ENVIRONMENTAL SAFETY MANAGEMENT Implemented safety standards of care: -[place] to unit & environment -Adequate room lighting -Bed in low and locked position -Call light within reach -Personal items within reach -Traffic path in room free of clutter -Non-slip footwear -Upper/half length side rails up for bed mobili ty -Sensory aids within reach -Encourage patient to utilize sensory support Isolation Type: Airborne Other: Specify: SARS-COV-2 PRECAUTIONS Education reinforced for patient/family/caregiv er/visitor related to isolation precautions/actions required. NEUROLOGICAL Neurological Orientation: Oriented x4 Level of Consciousness (AVPU): Alert = Appears aware of and responsive to the environment on their own. Follows commands, open eyes spontaneously, and tract objects. Affect/behavior: Cooperative Calm Reynoso Agitation Sedation Scale (RASS): 0 Alert and calm Neurological-Aspiration Risk Assessment: Difficulty swallowing thin or thick liquids, pi lls, saliva, solids NEUROMUSCULAR/NEUROVASCULAR EXTREMITIES ASSESSM ENT Strength: Nursing Clinical Director Bilateral: Strong Upper Extremity Bilateral: Full strength Lower Extremity Bilateral: Full strength Sensation: Upper Extremity Sensation Bilateral: Intact Lower Extremity Sensation Bilateral: Intact Temperature: Upper Extremity Temperature Bilateral: Warm Lower Extremity Temperature Bilateral: Warm CARDIOVASCULAR Heart Sounds: Normal (S1S2) Heart Rate/Rhythm (without hall monitor): 94, IRRegular, AUSCULTATED APICALLY FOR 1 MINUT E Peripheral Pulses: All 4 extremities, 3+ normal. Edema: None Cardiovascular - Embolism Prevention: Comment: ENOXAPARIN SQ RESPIRATORY Respirations: Unlabored Pattern: Regular Breath Sounds Auscultated: Posterior only Right Upper Lobe: Clear, Diminished Left Upper Lobe: Clear Right Middle Lobe: Clear, Diminished Right Lower Lobe: Clear, Diminished Left Lower Lobe: Clear Symptoms: Cough: Productive Comment: PATIENT REPORTS JEANNETTE T HE HAD A LOT OF PHLEM DURING THE DAYSHIFT THAT HE COUGHED AND SPIT OUT Supplemental Respiratory: Continuous Pulse Oximetry Incentive Spirometry: Maximum volume achieved (mL): 1250 Times performed: 10 GASTROINTESTINAL Last bowel movement: 12/06/2021 No bowel movement reported by patient Elimination: Continent Abdominal Description: Rounded Palpation: Soft, Non-tender Bowel Sounds: RUQ: Active LUQ: Active RLQ: Active LLQ: Active GENITOURINARY Elimination: Continent Color/Characteristic: VERY DARK Arlin, PATIENT ENCOURAGED TO DRINK MO RE FLUIDS Clear ACTIVITIES OF DAILY LIVING Hygiene ADLs: Dressing: Upper Body: Independent Lower Body: Independent Eating: Independent, HEALTHY DIET, TAKES PILLS ONE AT A TIME WITH WATER, LIKES APPLE JUICE ON ICE Pericare: Independent Personal Care: Independent Toileting: Independent Supplemental Activities of Daily Living: Sleep: Sleep quality: Easily returns to sleep after waking Sleep interruptions: Wakened for medical care MOBILITY Mobility Status: Minimum assist: Stands with support only (Unsteady or requires verbal cueing) Unable to march and step independently Equipment utilized: Cane Walker Gait: Other: PATIENT DID NOT WANT TO GET OUT OF BED THIS SHIFT OR DO ACTIVE RANGE OF MOTION IV LINES Peripheral IV: Line #1: Assessment: Location: Right, Antecubital Gauge: 18 Dressing Condition: Clean, dry, intact Site Condition: No redness, swelling, pain Line Status: Patent/infusing Capped Flushed PSYCHOSOCIAL Type of Emotional Support Provided: Ventilation of feelings encouraged /emely/ SIOMARA SANTACRUZ REGISTERED NURSE Signed: 12/08/2021 04:34 Dec 07, 2021 04:15 INFECTIOUS DISEASE NOTE: FILI JONES [place] LOCAL TITLE: Infectious Disease Note [facility] STANDARD TITLE: INFECTIOUS DISEASE NOTE DATE OF NOTE: DEC 07, 2021@16:15 ENTRY DATE: DEC 07, 2021@16:15:15 AUTHOR: FILI JONES EXP COSIGNER: URGENCY: STATUS: COMPLETED ID Note 71 yo man admitted with aspiration pneum onia and recent COVID-19 infection. He has been placed in isolation and is receiving re mdesivir as well as antimicrobials to prevent development of aspiration PNA/abscess. No concerning new events. He remains afebr ile and saturating well on RA. Labs are reassuring. At this juncture we would co ntinue isolation precautions until we are clear that he is improving and is not developing a COVID-19 related complication. I would not repeat COVID-19 PCR or a ntigen testing as I don't think ultimately it would be informative. We can change him over to an ora l antibiotic regimen when the patient is ready for discharge or earlier if he is reliably able to take POs. Continue remdesivir 100 mg IV daily to complete a 5 day course. /emeyl/ FILI JONES Infectious Diseases Signed: 12/07/2021 16:20 Dec 07, 2021 03:30 NURSING NOTE: JUSTIN SALGUERO J CT PM LOCAL TITLE: NURSING PROGRESS OTHER [facility]: NURSING NOTE DATE OF NOTE: DEC 07, 2021@15:30 ENTRY DATE: DEC 07, 2021@18:01:59 AUTHOR: JUSTIN SALGUERO EXP COSIGNER: URGENCY: STATUS: COMPLETED Masimo/Safety Net YES - Applied site left hand /charmaine SALGUERO, MADISYN Registered Nurse Signed: 12/07/2021 18:15 Dec 07, 2021 01:30 NURSING INPATIENT NOTE: JUSTIN SALGUERO [place] PM LOCAL TITLE: [facility] NURSING FREQUENT DOCUMENTATI ON [facility] STANDARD TITLE: NURSING INPATIENT NOTE DATE OF NOTE: DEC 07, 2021@13:30 ENTRY DATE: DEC 07, 2021@15:16:20 AUTHOR: JUSTIN SALGUERO EXP COSIGNER: URGENCY: STATUS: COMPLETED Version 2.4 Charting in accordance with ME APPROVED ENTERPRI SE STANDARD (MEAES) ACUTE INPATIENT/REHABILITATION KENDRICK SING ADMISSION SCREENING, ASSESSMENT, AND STANDARDS OF CARE BRIEF CONFUSION ASSESSMENT METHOD - bCAM Feature 1: Mental Status Change: No change from baseline (bCam negative, no delirium) Feature 2: Inattention Exam Errors: Feature 3: Altered level of Consciousness: Feature 4: Disorganized thinking: bCAM Result: Final Result Negative ENVIRONMENTAL SAFETY MANAGEMENT Implemented safety standards of care: -[place] to unit & environment -Adequate room lighting -Bed in low and locked position -Call light within reach -Personal items within reach -Traffic path in room free of clutter -Non-slip footwear -Upper/half length side rails up for bed mobili ty -Sensory aids within reach -Encourage patient to utilize sensory support /es/ JUSTIN SALGUERO, RN Registered Nurse Signed: 12/07/2021 15:16 Dec 07, 2021 11:28 NURSING NOTE: JUSTIN SALGUERO J CT LOCAL TITLE: [facility] SKIN INSPECTION/ASSESSMENT [facility] STANDARD TITLE: NURSING NOTE DATE OF NOTE: DEC 07, 2021@11:28 ENTRY DATE: DEC 07, 2021@11:28:21 AUTHOR: JUSTIN SALGUERO EXP COSIGNER: URGENCY: STATUS: COMPLETED SKIN REINSPECTION/REASSESSMENT SKIN INSPECTION: Skin Color: Usual for ethnicity Skin Temperature: Warm Skin Moisture: Normal Skin Turgor: Elastic (normal/immediate) Nate Skin Assessment: The patient's Nate Scale Score is 19. The pat ient is considered not at risk for development of pressure ulcers/injurie s. Sensory perception -- ability to respond meanin gfully to pressure-related discomfort No impairment. Moisture -- degree to which skin is exposed to moisture Rarely moist. Activity -- ability to change and control body position Walks occasionally. Mobility -- ability to change and control body position Slightly limited. Nutrition -- usual food intake patterns Probably inadequate. Friction and shear No apparent problem. INTERVENTIONS: The pressure injury interventions were not need ed - patient/resident is not at risk. RISK FACTORS THAT INCREASE RISK FOR DEVELOPING PRESSURE INJURIES The patient/resident does not have any addition al risk factors. Localized abnormality: Other: Location(s): left heel red and blanchable /emely/ JUSTIN SALGUERO RN Registered Nurse Signed: 12/07/2021 11:30 Dec 07, 2021 09:30 NURSING INPATIENT NOTE: JUSTIN SALGUEROT LOCAL TITLE: [facility] ACUTE INPATIENT NSG SHIFT SESSMENT [facility] STANDARD TITLE: NURSING INPATIENT NOTE DATE OF NOTE: DEC 07, 2021@09:30 ENTRY DATE: DEC 07, 2021@09:54:25 AUTHOR: JUSTIN SALGUERO EXP COSIGNER: URGENCY: STATUS: COMPLETED Version 2.2 Charting in accordance with [facility] ENTERPRI STANDARD (MEAES) ACUTE INPATIENT/REHABILITATION NURSING ADMISSION SCREE JER[place], ASSESSMENT, AND STANDARDS OF CARE ASSESSMENT HANDOFF Comment: patient on precautions PAIN ASSESSMENT Are you currently experiencing pain? No CHAVEZ FALL SCALE & TIPS PROGRAM Chavez Fall Scale: The Chavez Fall scale was performed and score wa s 85. This is indicative of high risk for falls. History of falling in past 3 months? Yes Secondary diagnosis: Yes Ambulatory aid: Crutches/cane(s)/walker Intravenous therapy/Heparin lock: Yes Gait/Transferring: Weakness Mental Status: Oriented to own ability/knows own limitations ENVIRONMENTAL SAFETY MANAGEMENT Implemented safety standards of care: -[place] to unit & environment -Adequate room lighting -Bed in low and locked position -Call light within reach -Personal items within reach -Traffic path in room free of clutter -Non-slip footwear -Upper/half length side rails up for bed mobili ty -Sensory aids within reach -Encourage patient to utilize sensory support Isolation Type: Other: Specify: covid NEUROLOGICAL Neurological Orientation: Oriented x4 Level of Consciousness (AVPU): Alert = Appears aware of and responsive to the environment on their own. Follows commands, open eyes spontaneously, and tract objects. Affect/behavior: Cooperative Calm NEUROMUSCULAR/NEUROVASCULAR EXTREMITIES ASSESSM ENT Strength: Nursing Clinical Director Bilateral: Strong Upper Extremity Bilateral: Full strength Lower Extremity Bilateral: Full strength Sensation: Upper Extremity Sensation Bilateral: Intact Lower Extremity Sensation Bilateral: Intact Temperature: Upper Extremity Temperature Bilateral: Warm Lower Extremity Temperature Bilateral: Warm CARDIOVASCULAR Heart Sounds: Normal (S1S2) Heart Rate/Rhythm (without hall monitor): Irregular Capillary Refill: All 4 extremities, less than or equal to 3 seco nds. Peripheral Pulses: All 4 extremities, 3+ normal. Edema: None RESPIRATORY Respirations: Unlabored Pattern: Regular Breath Sounds Auscultated: Anterior only Left Upper Lobe: Clear Right Upper Lobe: Clear Right Middle Lobe: Clear Left Lower Lobe: Clear Right Lower Lobe: Clear GASTROINTESTINAL No bowel movement reported by patient Elimination: Continent Abdominal Description: Rounded Palpation: Soft, Non-tender Bowel Sounds: RUQ: Active LUQ: Active RLQ: Active LLQ: Active GENITOURINARY Elimination: Continent Color/Characteristic: Clear Yellow INTEGUMENTARY/SKIN/WOUND - (INCLUDING NATE) SEE NOTE: VAAES SKIN INPECTION/ASSESSMENT MOBILITY Mobility Status: Minimum assist: Stands with support only (Unsteady or requires verbal cueing) Unable to march and step independently Equipment utilized: Cane Walker IV LINES Peripheral IV: Line #1: Assessment: Location: Right, Antecubital Gauge: 20 Dressing Condition: Clean, dry, intact Transparent dressing Site Condition: No redness, swelling, pain Line Status: Capped Flushed /es/ JUSTIN SALGUERO RN Registered Nurse Signed: 12/07/2021 15:30 Dec 07, 2021 09:08 PULMONARY CONSULT: ANDREW MONDRAGON [facility] TITLE: CONSULT: Pulmonary [facility] STANDARD TITLE: PULMONARY CONSULT DATE OF NOTE: DEC 07, 2021@09:08 ENTRY DATE: DEC 07, 2021@09:10:58 AUTHOR: ANDREW MONDRAGON EXP COSIGNER: REENA DELGADO URGENCY: STATUS: COMPLETED Reason for Consult: thoracentesis vs. bronchosco py 71 y/o man notable PMH Stage IIIa adenocarcinoma (EGFR/ALK negative, PDL 1: 90% s/p chemotherapy/radiation/dervalumab, C OPD (102 pack-years, cessation: 2015), diverticulitis (s/p partial colonic rese ction), COVID positive (vaccinated + 1 booster). Pulmonary History: - 05/30/2017: molecular testing of tissue for pl eural biopsy. - August 2017: Completed efinitive radiation with concurrent chemotherapy. Not surgical candidate per [facility] [place]. - 09/04/2018: completed 1 year of durvalumab - 07/24/2019: - 6 months ago: started havi ng unintentional weight loss of approximately 70lb, fatigue, weakness, anorexia, odynophagia, myalgi as. Was following with Dr. Cameron ([facility] [place]). - 10/26 - 11/06/2019: Admitted for clogged PleurX catheter treated with tPA/dornase - 11/06/2019: PleurX catheter removed. - 11/27/2021: Started having increased productive cough, dyspnea. Tested positive for COVID. positive for COVID. - 12/06/2021: Near complete opacification (RIGHT hemithorax) found on CXR and subsequent CT chest. ED was concerned about aspiration. Received 1 dose of zosyn and converted to ceftriaxone/meetronidazole. Pos itive for COVID. Negative for influenza. -Denies: chest pain, chest palpations, acute vis ual changes or fevers chills. Active Inpatient Medications (excluding Supplies ): Active Inpatient Medications Status 1) ALBUTEROL INHL,ORAL 2 PUFFS INHALATION ORAL Q ID PRN ACTIVE for breathing 2) AMLODIPINE TAB 5MG PO QD please hold if systo lic <90 ACTIVE 3) CARBOXYMETHYLCELLULOSE 0.5% SOLN,OPH ONE DROP OU QID ACTIVE 4) CEFTRIAXONE 2GM/DEXTROSE 5% 50ML INJ,SOLN in ACTIVE CEFTRIAXONE 2GM/D5W 50 ML INFUSE OVER 30 MINUTE S IV QD 5) CHOLECALCIFEROL TAB 10MCG PO QD ACTIVE 6) DICLOFENAC 1% GEL,TOP 4 GRAMS TO LOWER EXTREM ITIES ACTIVE TOP QID PRN for pain/inflammation 7) ENOXAPARIN INJ 40MG/0.4ML SQ QD ACTIVE 8) LOSARTAN TAB 12.5MG PO QD please hold if syst olic ACTIVE <90 9) METRONIDAZOLE TAB 500MG PO TID ACTIVE 10) OLODATEROL/TIOTROPIUM INHL,ORAL 2 PUFFS INHA LATION ACTIVE ORAL QD 11) OMEPRAZOLE CAP,EC 20MG PO BID-AC ACTIVE 12) REMDESIVIR INJ REMDESIVIR 100 MG in SODIUM C HLORIDE ACTIVE 0.9% INJ 100 ML INFUSE OVER 60 MINUTES IV QD 13) SERTRALINE TAB 150MG PO QD ACTIVE Allergies: LISINOPRIL PMHx/Problem List: Primary squamous cell carcinoma of skin Osteoart hritis (SCT 872535158) Psoriasis (SCT 0155674) Spinal stenosis of lumba r region (SCT 00120727) Low back pain (SCT 749335669) Joint pain (SCT 57 975177) Primary malignant neoplasm of lung (SCT Morbid o besity (SCT 310039528) Benign essential hypertension (SCT [id number] obstructive lung disease (SCT 80747559) FHx: - unremarkable SHx: - Smokin pack-years (cessation: 2015) - Alcohol: cessation HISTORY Service - NONE FOUND - Combat NO - Period of Service: - Service Connected: SERVICE CONNECTED % - NONE FOUND - Notable Exposure Concerns (Chemical, Biologica l, Psychological Trauma Exposure, or Physical): ROS: Besides what is mention ed here, in the HPI, and in the PMHx, a 14-point ROS is otherwise unremarkable. O/ PE/ GA: VS BP: 141/85 (12/07/2021 06:03) Pulse: 88 (12/07/2021 06:03) Temp: 96.3 F [35.7 C] (12/07/2021 06:07) Resp: 16 (12/07/2021 06:03) HT(in): 72 in [182.9 cm] (03/05/2019 11:48) WT(lbs):233.7 lb [106.00 kg] (12/06/2021 21:43) 12/07/21 @ 0603 PULSE OXIMETRY: 95 HEENT: PERRLA. No conjunctival edema or icterus. No neck masses, adenopathy, thyroid abnormalities, or tenderness. Mallampati . Chest: reduced lung sounds right. Otherwise CTAB . CV: S1 & S2 normal. No murmurs, gallops, rubs, c licks. No JVD. Pulses 1-2+. Abd.: ND/NT s/ masses or HSM. Extrems.: No clubbing, cyanosis, peripheral courtney a, or leg cords. Neuro: Awake, alert, & oriented. No gross focal motor deficits. Labs: AbsI.1 (12/07/21 06:00) BASO %: 0.4 (12/07/21 06:00) BASO#: 0.0 (12/07/21 06:00) EOS %: 0.4 (12/07/21 06:00) EOS#: 0.0 (12/07/21 06:00) HCT: 33.3 (12/07/21 06:00) HGB: 10.7 (12/07/21 06:00) IG%: 1.2 (12/07/21 06:00) LYMPH %: 12.7 (12/07/21 06:00) Lymph#: 0.7 (12/07/21 06:00) MCH: 25.8 (12/07/21 06:00) MCHC: 32.1 (12/07/21 06:00) MCV: 80.2 (12/07/21 06:00) MONO %: 7.0 (12/07/21 06:00) MONO#: 0.4 (12/07/21 06:00) MPV: 9.0 (12/07/21 06:00) N.RBC: 0.0 (12/07/21 06:00) NEUT %: 78.3 (12/07/21 06:00) NEUT#: 4.5 (12/07/21 06:00) NRBC#: 0.00 (12/07/21 06:00) PLT: 173 (12/07/21 06:00) RBC: 4.15 (12/07/21 06:00) RDW: 16.4 (12/07/21 06:00) WBC: 5.7 (12/07/21 06:00) GLU,BUN,CREAT,LYTES GLUCOSE BUN CREAT SODIUM K C HLOR CO2 12/07/21 06:00 92 9 0.73 135 3.5 103 22 GLU,BUN,CREAT,LYTES ANION eGFR 12/07/21 06:00 10 PFT - 05/08/2017: FVC:76%, FEV1: 65%, ratio: 64% Radiographs: CT chest (12/06/2021): Right mainstem bro nchus occluded with significant volume loss of right lung. Compensatory left-sided hype rinflation noted. Significant consolidation. Compared with 06/23/2019, the right pleural effusion has decreased in volume. Assessment & Plan: 71 y/o man notable PMH Stage IIIa adenocarcinoma (EGFR/ALK negative s/p chemotherapy/radiation/dervalumab, COPD (102 pac k-years, cessation: 2015), diverticulitis (s/p partial colonic rese ction), COVID positive (vaccinated + 1 booster). Pulmonary service consulted for possib le intervention with thoracentesis vs. bronchoscopy. #Aspiration of food particles with evidence of r adiation-induced RIGHT-sided lung volume loss and subsequent mediastinal shif t. Radiographically he has a patulous esophagus and evidence of particles wit hin the airway. However, with his significant smoking-hist ory and adenocarcinoma, I still have a moderate-high pre-test probability of malignancy recurrence. T hankfully, it does not appear that tumor invasion is the primary drive r of this radiographic findings. Being COVID positive also complicates the process of b ronchoscopy. Needless to say, even if this was malignancy, delaying for outpat ient bronchoscopy should have minimal impact of cancer management. I agree wit h full treatment of presumed aspiration pneumonia. Can repeat CT ches t (non-contrasted) in the coming month to monitor. However, given evidence of air bronc hograms and good SpO2 on room air, this process likely reflects a chronic etio logy. In acute settings of airway blockage, the lungs usually don't have en ough time to shunt blood contralaterally. Thus, his o verall good respiratory status currently suggests a paucity of VQ mismatch. I would strongly recomme nd good eating hygiene especially with the assistance of a speech thera pist to help education/teach good technique to prevent/minimize aspiration. - Recommend speech therapy for dietary recommend ations. - No acute indications for aggressive interventi on. - Complete full course of presumed aspiration pn eumonia - No aggressive intervention indicated at this t eliezer. /emely/ ANDREW MONDRAGON Pulmonary & Critical Care Medicine Fellow Signed: 12/07/2021 11:56 /emely/ VITO Yeung MD Cosigned: 12/07/2021 11:57 Dec 07, 2021 09:06 NUTRITION DIETETICS E & M NOTE: CONY SANTACRUZ [facility] LOCAL TITLE: Nutrition Assessment/Reassessment [facility] STANDARD TITLE: NUTRITION DIETETICS E & M NOTE DATE OF NOTE: DEC 07, 2021@09:06 ENTRY DATE: DEC 07, 2021@09:06:26 AUTHOR: CONY SANTACRUZ EXP COSIGNER: URGENCY: STATUS: COMPLETED Nutrition Assessment/Reassessment Has ADDEN DA Reason for assessment: Pt scored a 2 or more on nutrition screening indicating potentialn for high nutrition risk T/w is off site this date, assessment is being completed via chart review only The patient is a 71year old MALE a/wsymptomology concerning for aspiration PNA versus recurrence of primary malignancy. He has had reduced appetite/anorexia for several months now, recent intermittent diar alexi and COVID 19. Hx of GI surgeries per chart review. Per PCP visit on 11/15: # # Anorexia, Nausea Presenting with sevearl jolanta h history of epigastric pain with tendenress on exam and anorexia with poor PO appetite and n ausea. No vomiting Feels better laying down. Also sensation of food getting stuck in th e lower 1/3 of esophagus- no serenity dysphagia w/ coughing after swallo wing. Food stuck is solid more likely. In general symptoms not clearly associated w/ pa ritcular food groups. +Weight loss 22 pounds in 6 months.. .Suspect GERD but alarming symptoms w/ weight loss. May need a swallow study, but based on symptoms will first start with EGD and PPI. Pt just admitted last night and is under going work up. Pt could be at risk for refeeding syndrome. SUBJECTIVE: Appetite: reported as poor x several months N/V/D/C: + nausea Chewing/swallowing problems: + swallowing concer ns, TECHNICAL SUPPORT AGENT consult pending Allergies: LISINOPRIL Pertinent PMH: Active problems - Computerized Problem List is t he source for the followin. 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 Osteoarthritis 7. Primary malignant neoplasm of lung 8. Morbid obesity 9. Benign essential hypertension 10. Chronic obstructive lung disease Current Diet: Healthy IVF: none currently Enteral/Parenteral Nutrition: none Skin Condition: no pressure sores noted Laboratory Data: HGB A1C: 5.8 (05/16/21 09:43) ALB: 2.4 (12/07/21 06:00) BUN: 9 (12/07/21 06:00) CREATI: 0.73 (12/07/21 06:00) eGFR 05/16/21 09:43 52 L WBC: 5.7 (12/07/21 06:00) GLU: 92 (12/07/21 06:00) CHOL: 187 (07/01/21 08:17) HDL: 44 (07/01/21 08:17) LDL: 112 (07/01/21 08:17) TRI (07/01/21 08:17) Collection DT Specimen Test Name Result Units Re f Range 12/07/2021 06:00 PLASMA!! ALBUMIN 2.4 L g/dL 3.2 - 5.0 12/07/2021 06:00 PLASMA!! BILIRUBIN, TOTAL 0.4 m g/dL 0.2 - 1.2 12/07/2021 06:00 PLASMA!! ALKALINE PHOSPHAT 109 U/L 40 - 150 12/07/2021 06:00 PLASMA!! ALT(SGPT) 10 U/L 7 - 5 2 12/07/2021 06:00 PLASMA!! AST(SGOT) 15 U/L 5 - 3 4 !! Indicates COMMENTS AVAILABLE...Refer to Inter im Lab Report. K: 3.5 (12/07/21 06:00) NA: 135 (12/07/21 06:00) Pertinent Medications: Active Inpatient Medications (excluding Supplies ): Active Inpatient Medications Status 2) AMLODIPINE TAB 5MG PO QD please hold if systo lic <90 ACTIVE 4) CEFTRIAXONE 2GM/DEXTROSE 5% 50ML INJ,SOLN in ACTIVE CEFTRIAXONE 2GM/D5W 50 ML INFUSE OVER 30 MINUTE S IV QD 5) CHOLECALCIFEROL TAB 10MCG PO QD ACTIVE 6) DICLOFENAC 1% GEL,TOP 4 GRAMS TO LOWER EXTREM ITIES ACTIVE TOP QID PRN for pain/inflammation 7) ENOXAPARIN INJ 40MG/0.4ML SQ QD ACTIVE 8) LOSARTAN TAB 12.5MG PO QD please hold if syst olic ACTIVE <90 9) METRONIDAZOLE TAB 500MG PO TID ACTIVE 10) OLODATEROL/TIOTROPIUM INHL,ORAL 2 PUFFS INHA LATION ACTIVE ORAL QD 11) OMEPRAZOLE CAP,EC 20MG PO BID-AC ACTIVE 12) REMDESIVIR INJ REMDESIVIR 100 MG in SODIUM C HLORIDE ACTIVE 0.9% INJ 100 ML INFUSE OVER 60 MINUTES IV QD 13) SERTRALINE TAB 150MG PO QD ACTIVE Food-Drug interactions: reviewed NUTRITION-FOCUSED PHYSICAL EXAM/ASSESSMENT Unable to perform nutrition-focused physical exa m/assessment Nutrition Vitals: Height: 72 in [182.9 cm] (03/05/2019 11:48) Frame Size: LARGE Weight: 233.7 lb [106.00 kg] (12/06/2021 21:43) Weight Hx: wt loss of 50 lbs in past 5 m onths; 43 lbs in past 3 months (15.5%) Hunter Weight: 196 lbs % Hunter Wt: 119% BODY MASS INDEX - 31.76 Estimated Nutrition Needs: Kilocalorie requirement: 2650 (25 kcals/kg) Protein requirement: 138 (1.3 gm/kg) Fluid requirement: (30-35 ml/kg) or per Team Nutrition Diagnosis: Unintentional weight loss Related to: anorexia, nausea, diarrhea, SOB, swa llowing difficulty/discomfort with eating As evidenced by: 50 lbs weight loss in p ast 5 months, 43 lbs of that in past 3 months ETIOLOGY: Physiological/Metabolic INTERVENTION/PLAN: Nutrition Prescription - Healthy diet, modified texture as needed Food/nutrient delivery - --Healthy diet will not meet est needs e jairo if pt consumes 100% of meals; will add Glucerna shakes w/ all meals for now -Started a calorie count to better assess what a nd how much pt is able to eat --Additional interventions TBD depending on w/u and TECHNICAL SUPPORT AGENT recs Coordination of Nutrition care - team, TECHNICAL SUPPORT AGENT Monitoring/Evaluation: Food/nutrition related history outcomes - Pt will tolerate and consume >50% of meals and 2 Glucerna/day Anthropometric Measurement Outcomes- Avoid wt lo ss of >1.5 lbs/week during admission Recommended f/u: 1-2 days /es/ Cony Santacruz RD Clinical Dietitian Signed: 12/07/2021 15:16 12/07/2021 ADDENDUM STATUS: COMPLETED Additional considerations: -Daily MVI, thiamine and/or B-complex /emely/ Cony Santacruz RD Clinical Dietitian Signed: 12/07/2021 15:20 Dec 07, 2021 08:47 NUTRITION INPATIENT NOTE: ALVARO FLORES LOCAL TITLE: Nutrition Inpatient Screening [facility] STANDARD TITLE: NUTRITION INPATIENT NOTE DATE OF NOTE: DEC 07, 2021@08:47 ENTRY DATE: DEC 07, 2021@08:47:57 AUTHOR: ALVARO FLORES EXP COSIGNER: URGENCY: STATUS: COMPLETED Patient scored a >/=2 on nursing admission penny cano note. Patient will be evaluated further by Registered Dietitian. Lost weight recently without trying: Yes Greater than 15 kg (33 lbs) (4 points) Eating poorly due to decreased appetite: No (0 points) Total Score: 4 DIAGNOSIS - pneumonia with COVID + BMI - BODY MASS INDEX - NO HEIGHTS FOUND DIET ORDER - DIETS: 12/06/2021 - Present HEALTHY DIET (Tray) % OF WEIGHT LOSS - 16% in the past month /charmaine FLORES Nutrition Health [employer] Press [employer] Signed: 12/07/2021 08:48 Receipt Acknowledged By: 12/07/2021 08:54 /emely/ Cony Santacruz RD Clinical Dietitian Dec 07, 2021 08:34 INTERNAL MEDICINE NOTE: ANTONY MCKEON BANG MONTOYA LOCAL TITLE: General Internal Medicine Note [facility] STANDARD TITLE: INTERNAL MEDICINE NOTE DATE OF NOTE: DEC 07, 2021@08:34 ENTRY DATE: DEC 07, 2021@08:38:08 AUTHOR: ANTONY MCKEON EXP COSIGNER: ALVARO FELIZ URGENCY: STATUS: COMPLETED General Internal Medicine Note Has ADDENDA Date/Time of Admission: Nov 16:44 Allergies: LISINOPRIL Remote Allergy/ADR: RART - Remote Allergy/ADR No Remote Allergy/ADR Data available for this pa tient 24 hour events/subjective: -NAEO -endorses some improvement in his respiratory st atus -today describes a sharp pain that has been inte rmittent over past several months that improves with position and is occasi onally worsened by swallowing food. Active Inpatient Medications (excluding Supplies ): Active Inpatient Medications Status 1) ALBUTEROL INHL,ORAL 2 PUFFS INHALATION ORAL Q ID PRN ACTIVE for breathing 2) AMLODIPINE TAB 5MG PO QD please hold if systo lic <90 ACTIVE 3) CARBOXYMETHYLCELLULOSE 0.5% SOLN,OPH ONE DROP OU QID ACTIVE 4) CEFTRIAXONE 2GM/DEXTROSE 5% 50ML INJ,SOLN in ACTIVE CEFTRIAXONE 2GM/D5W 50 ML INFUSE OVER 30 MINUTE S IV QD 5) CHOLECALCIFEROL TAB 10MCG PO QD ACTIVE 6) DICLOFENAC 1% GEL,TOP 4 GRAMS TO LOWER EXTREM ITIES ACTIVE TOP QID PRN for pain/inflammation 7) ENOXAPARIN INJ 40MG/0.4ML SQ QD ACTIVE 8) LOSARTAN TAB 12.5MG PO QD please hold if syst olic ACTIVE <90 9) METRONIDAZOLE TAB 500MG PO TID ACTIVE 10) OLODATEROL/TIOTROPIUM INHL,ORAL 2 PUFFS INHA LATION ACTIVE ORAL QD 11) OMEPRAZOLE CAP,EC 20MG PO BID-AC ACTIVE 12) REMDESIVIR INJ REMDESIVIR 100 MG in SODIUM C HLORIDE ACTIVE 0.9% INJ 100 ML INFUSE OVER 60 MINUTES IV QD 13) SERTRALINE TAB 150MG PO QD ACTIVE Physical Exam: Vital signs (include range): DATE/TIME TEMP PULSE RESP BP PAIN WEIGHT 12/07/21 @ 0607 96.3 12/07/21 @ 0603 88 16 141/85 0 12/07/21 @ 0047 6 Ins/Outs: Weight: 233.7 lb [106.00 kg] (12/06/2021 21:43) General: NAD, laying in bed Head and Neck: supple neck Respiratory: Lungs sounds absent on right lower lobe; rhonchi in left field Cardiovascular: RRR, no MRG Abdomen/GI/: slightly distended and tender dif fusley to palpation Musculoskeletal:no bony deformities Neurological: EOMI, II-XII grossly intact Psychiatric/Mental Status: appropiate affect Diagnostics Labs: SIGNIFICANT CHANGES: Lymph: 9.7 L -> 12.7 L over 1 days. Eos: 0.1 L -> 0.4 over 1 days. Baso: 0.3 -> 0.4 over 1 days. Bands: 0.8 H -> 1.2 H over 1 days. BUN: 13 -> 9 over 1 days. TBil: 0.6 -> 0.4 over 1 days. HEMATOLOGY: 12/07/2021 06:51 12/06/2021 12:00 \ 10.7 / \ 12.4 / 5.7 ------ 173 7.2 ------ 180 / 33.3 \ / 39.6 \ PMN: 78.3% H LYMPH: 12.7% L MONO: 7.0% EOS: 0.4% BASO: 0.4% BANDS: 1.2% H A.7 L MCV: 80.2 L RDW: 16.4 H MCH: 25.8 L RBC: 4.15 L Mentzer index of 19.33 (> 13, predictive of BETH) CHEMISTRY: Dec 07, 2021@07:15 Dec 06, 2021@12:00 135 103 9 / 138 103 13 / 92 105 3.5 22 0.73 \ Gap: 14` 3.8 23 0.90 \ Ga p: 15` ` - corrected for albumin eGFR(CKD-EPI 2020): >90.0 Calcium: 8.0 L @ 2021 07:15 Corrected Calcium: 9.3 (alb 2.4 on Dec 07, 2021) @ 12/07/2021 07:15 Protein: 5.7 L Albumin: 2.4 L ALK: 109 ALT: 10 @ 12/07/2021 07:15 AST: 15 FIB-4 SCORE: 1.92 TBil: 0.4 @ 12/07/2021 07:15 BNP(P): 224.8 H TROPONIN II: 0.03 @ 12/06/2021 12 :00 URINE STUDIES: UA: Arlin/n/a LE n/a Protein 5 Ketones <2.0 Urob moe otherwise bland @ 12/06/2021 18:00 CLARITY: HAZY URINE PH: 5.0 PROTEIN, URINE: 30 @ 12/06/2021 18:00 WBC SCREEN: Neg RED BLOOD CELL/URINE: <1 @ 2021 18:00 WHITE BLOOD CELL/URINE: 3 HYALINE CAST: 5 H @ 18:00 MUCOUS/URINE: MANY @ 12/06/2021 18:00 OTHER: FLU A(PCR) (NASOPHARYNX): Neg @ 12/06/2021 12:00 FLU B(PCR) (NASOPHARYNX): Neg @ 12/06/2021 12:00 RSV(PCR) (NASOPHARYNX): Neg @ 12/06/2021 12:00 COVID-19(INO-byu-DBEOEMETL)DETECTED H* (NASOPHAR YNX): Ref: @ 12/06/2021 12:00 TREND DATA: WBC HGB HCT PLT MCV ======= 5.7 10.7 33.3 173 80.2 @ 12/07/2021 06:51 7.2 12.4 39.6 180 81.5 @ 12/06/2021 12:00 PMN Lymph [place] Eos Baso Bands ======= 78.3 12.7 7.0 0.4 0.4 1.2 @ 12/07/2021 06:51 82.1 9.7 7.0 0.1 0.3 0.8 @ 12/06/2021 12:00 Na K Cl CO2 AG BUN Cr Ca ======= 135 3.5 103 22 10 9 0.73 8.0 @ 12/07/2021 07:15 138 3.8 103 23 12 13 0.90 8.7 @ 12/06/2021 12:00 AST ALT AlkP TBil Alb Prtn ======= 15 10 109 0.4 2.4 5.7 @ 12/07/2021 07:15 18 13 134 0.6 2.8 6.6 @ 12/06/2021 12:00 Glucose ======= 92 07:15 @ 12/07/2021 105 12:00 @ 12/06/2021 SG Blood Nitr Gluc Keto Bili Urobi ======= 1.029 - - - 5 - <2.0 @ 12/06/2021 18:00 MICRO: LAC - pending @ 12/06/2021 15:30 LAC - pending @ 12/06/2021 15:30 Imagin12/06/2021 CT THORAX W/O CONT CPT Code: 54607 Interpreting Staff: JESSIE CHENEY Interpreting Res.: PRINCE CHAMPION Exam Case Number: [id number] Exam Status: COMPLETE Rpt Status: VERIFIED Technologist: DARVIN GASTELUM Reason for Study: Opacification right chest History: No contrast allergy BUN: 13 (12/06/21 12:00) CREATI: 0.90 (12/06/21 12:00) eGFR 05/16/21 09:43 52 L Weight: 232.6 lb [105.51 kg] (12/06/2021 11:40) BODY MASS INDEX - NO HEIGHTS FOUND Pager number: [phone] STAT orders MUST be called t o RADIOLOGY [phone] to speak to the appropriate septic tank service technician. Indications - Other: Opacification right chest, covid positive, lung cancer histo Report: CT THORAX W/O CONT COMPARISON: chest [...] stem bronchus. The residual aerated pulmonary parenchymal demo nstrates scattered consolidative and mixed attenuation o pacities along with scattered, basilar predominant calcificati ons. The left lung is clear. No pneumothorax. Cardiomediastinum, Malu, lymph nodes and soft t issues: Significant rightward mediastinal shift, previo usly mild. No pathologically enlarged mediastinal lymph nodes . Mediastinal fat is preserved. Normal noncontrast appearance of the esophagus with a small hiatal hernia. Normal ca rdiac size. Scattered coronary artery and aortic calcificat ions. No thoracic aortic aneurysm. Upper Abdomen: New 1.5 cm soft tissue density l eft adrenal lesion, (series 4 image 306). Decreased size of 2 right adrenal gland lesions, measuring 1.9 and 3.3 cm respectively, previously 2.3 and 4.4 cm respectively, (series 4 images 301 and 273). Miscellaneous: None Musculoskeletal: No suspicious lytic or blastic osseous lesions. No acute osseous findings. Similar mul tilevel degenerative changes of the visualized thoracol umbar spine, most prominent from T4 to T10 with flowing ante rolateral enthesophytes, facet arthropathy and mild disc space narrowing. No acute osseous findings. Impression: 1. A probable majority [...] swallow with speech pathology to evaluate patient's air way protection abilities and aspiration risk as this examinati on suggests the patient is highly susceptible to aspiration jeffrey nts. 2. New 1.4 cm left adrenal solid lesion. Consider mult iphase CT or MRI for more definitive characterization. DX Codes: NO IMMEDIATE ATTENTION REQUIRED EKG: Assessment: 71 year old MALE with a history of Stage IIIa adenocarcinoma EGFR/ALK negative s/p chemotherapy/radiation/d ervalumab, COPD, diverticulitis s/p partial colonic resection, chronic low back pain s/p discectomy here for a 6 month history of 70 pound unintentional weight loss, fatigue, weakne ss, anorexia, odynophagia, myalgias, intermittent diarrhea and gene ral malaise alongside a 10 day history acutely of increased sputum production, SOB, and recent COVID+ with symptomatology concerning for aspiration PNA [place] valerie recurrence of primary malignancy. The patient's co nstellation of symptoms ranging from increased SOB, weakness, fatigue, and 70 pound weight loss(298. 4lb on 05/16/2021-->232.6lb today) are concerning for a recurrence of malign jose armando given the radiologic evidence that shows potential progression and michelle jalloh new pleural fluid at the right hemithorax. Another potential etiology how ever is the patient's odynophagia that he suggests has worsened over t he past several days with CT findings concerning for larg e volume aspiration event per radiologic impression. These findings are additiona lly compounded by his COVID+ test and therefore the plan is to start remdesivir today with continued tretament subsequently for the next 4 days alongside empirical abx for PNA(ceft riaxone and metronidazole). Additionally will benefit from continued ID cons ultant perspective and pulmonology consult to dicuss utility of procedu res(thoracentesis vs. bronchoscopy). We will also monitor blood cultur es for growth. 12/07: Patient remains physicaly unchanged howeve r there is microcytic anemia evident today likely dilutio nal however in setting of recent fluids received in ED overnight. Will benefit f rom speaking with radiology to better assess optimal imaging modality to work up new left-sided adren al mass. We will continue to empirically treat aspiration pneumonia and COVID . PLAN: #SOB #aspiration PNA? -Ceftriaxone 2 g/day + metronidazole 500 mg IV/P O q 8 -appreciate pulmonology consult #COVID+ -Remdesivir 200 mg IV once and 100 mg IV qd x 4 more days -Respiratory isolation -appreciate ID recs #ODYNOPHAGIA -Speech and swallow evaluation #COPD -home inhaler regimen #HTN -continue home amlodipine and losartan #GERD -continue PPI home regimen #depression -continue home sertraline #other home meds -continue cholecalciferol -continue diclofenac gel - VTE prophylaxis: [ X] Lovenox 40mg SC daily [ ] Lovenox 30mg SC daily (CrCl <30 but not on HD) [ ] Heparin 5000units SC TID (ESRD or other Soniya enox contraindication) [ ] Other pharmacologic VTE prophylaxis: [ ] Patient declines VTE pharmacologic prophyla xis despite discussion of VTE risk [ ] Very high risk for VTE (Critical Illness, s troke) thus both pharmacologic prophylaxis and Venodynes applied [ ] Pharmacologic prophylaxis contraindicated d ue to: [ ] SCD/Venodynes applied [ ] SCD/ Venodynes contraindicated due to leg w ounds, delirium concers [ ] Patient declines Venodynes /emely/ ANTONY MCKEON Resident Physician Signed: 12/07/2021 10:43 /es/ ALVARO VARGHESE MD DIRECTOR OF AMBULATORY CARDIOLOGY Cosigned: 12/07/2021 11:17 12/07/2021 ADDENDUM STATUS: COMPLETED Pt discussed and seen with team. He is feeling a bit better today. Appreciate pulmonary involvement and ID recommen dations. /emely/ ALVARO VARGHESE MD DIRECTOR OF AMBULATORY CARDIOLOGY Signed: 12/07/2021 11:20 Dec 07, 2021 07:04 STUDENT NOTE: CELENA KENNY AM [facility] TITLE: Medical Student Note [facility] STANDARD TITLE: STUDENT NOTE DATE OF NOTE: DEC 07, 2021@07:04 ENTRY DATE: DEC 07, 2021@07:04:28 AUTHOR: CELENA KENNY I EXP COSIGNER: DARLENE VARGHESE URGENCY: STATUS: COMPLETED Medical Student Note Has ADDENDA PROGRESS NOTE ID: Mr. Lucas Meek is a 71 year old male [employer] with a history of Stage IIIa adenocarcinoma of the lung (EGFR/ALK negative) s/p chemotherapy/radiation/dervalumab, COPD, diverti culitis s/p partial colonic resection, chronic low back pain s/p discectomy, 90 pack year hx of smoking, etoh abuse disorder, here for a subacute history of 70 pound unintentional weight loss, fatigue, weakness, anorexia, a nicole p constant pain in his chest radiating to his abdomen that is relieved by lyi ng flat, myalgias, persistant diarrhea and general malais e over the last six months, alongside an acute 10 day history of increased W OB, fatigue, sputum production, following recent COVID+ test on home kit after recent sick contact exposure( COVID+. 24 hours: The patient on ED examination was foun d to have near complete opacification of right hemithorax on chest X-ray ; with subsequent CT showing evidence of new abnormal pulmonary findings sugg estive of a large volume aspiration event, and findings of new 1.4cm adre nal solid lesion. The patient was started on remdesevir and given one dose of pip/tazo 4.5 mg however was subsequently started on empiric abx treatment(ce ftriaxone and metronidazole) with discountination of pip/tazo as per ID recco mendation. His UA was unremarkable, he had blood cultures drawn X2, his BNP was 224, he had no leukocytosis evident, he had a negative tropo aimee and his electrolytes were within normal limits. Influenza A and B and RSV were negative however he had a positive COVID test. No acute events overnight, VSS. SUBJECTIVE: This morning he says he is feeling b krista than he did yesterday- less tired. He has not had any episodes of diarr hea or vomitting, no palpitations or lightheadedn ess, but does endorse that same sharp pain radiating from his chest down into his abdomen. PE: Vitals: T 96.3, P 88, RR 16, BP 141/85 General: NAD, tired appearing Head and Neck: supple neck with some likely evid ent right palpable lymphadenopathy Respiratory: Lungs sounds absent on right, end i nspiratory rhonchi heard throughout left lung duvall Cardiovascular: RRR, no MRG Abdomen/GI/: slightly distended and tender dif fusley to palpation Musculoskeletal:no bony deformities Neurological: EOMI, II-XII grossly intact Psychiatric/Mental Status: appropiate affect LABS Remarkable for hypoalbuminemia of 2.4, microcyti c anemia of 10.7. ASSESSMENT Mr. Lucas Meek is a 71 year old male [facility] with a history of Stage IIIa adenocarcinoma of the lung (EGFR/ALK negative) s/p chemotherapy/radiation/dervalumab, COPD, diverti culitis s/p partial colonic resection, chronic low back pain s/p discectomy, 90 pack year hx of smoking, etoh abuse disorder, here for a subacute history of 70 pound unintentional weight loss, fatigue, weakness, anorexia, odynop hagia, myalgias, persistant diarrhea and general malais e over the last six months, alongside an acute 10 day history of increased W OB, fatigue, sputum production, conerning for recurra nce of malignancy vs. COVID pneumonia. Pierre's history of cancer in the context of a 70 pound untintentional weight loss, fatigue, full body pains, and imaging find ings of new right sided fluid accumulation. Other etiologies of his weight los s and fatigue could be nutrition malabsorption seconary to the persiste nt diarrhea he has been experiencing for 6 months co mbined with dereased PO intake per his odynophagia. This could additionally explain his hypoalbuiemi a and anemia. The new imaging findings could represent aspiration event in lig ht of his chest discomfort, which could possibly be more accurately represet misael by odynophagia/dysphagia, and recent COVID infection. PLAN #Weight loss #Fatigue - Consult oncology physician Dr. Cameron at [facility] - Consider multiphase CT, MRI or PET #SOB #aspiration -Ceftriaxone 2 g/day + metronidazole 500 mg IV/P O q 8 -Consult pulmonology - bronchoscopy vs. thoracen tesis. #COVID+ -Remdesivir 200 mg IV once and 100 mg IV qd x 4 more days -Respiratory isolation -appreciate ID recs #ODYNOPHAGIA -Speech and swallow evaluation #COPD -home inhaler regimen #HTN -continue home amlodipine and losartan #GERD -continue PPI home regimen #depression -continue home sertraline #other home meds -continue cholecalciferol -continue diclofenac gel /emely/ CELENA KENNY I Medical Student Signed: 12/07/2021 09:08 /emely/ ALVARO VARGHESE MD DIRECTOR OF AMBULATORY CARDIOLOGY Cosigned: 12/07/2021 12:26 12/07/2021 ADDENDUM STATUS: COMPLETED Agree with assessment and plan as outlined. Spoke with pulmonary team following rounds. Aspiration most likely expla nation for symptoms and current CT findings. Current recommendation is 10 days of abx for pre sumed aspiration pneumonia/pneumonitis with a repeat CT in ~ 1 month to ensure resoluti on. In addition, awaiting speech/swallow evaluation. In addition, discussed new finding of adrenal ma ss -PET vs MRI for further evaluation. /emely/ ALVARO VARGHESE MD DIRECTOR OF AMBULATORY CARDIOLOGY Signed: 12/07/2021 12:30 Dec 07, 2021 02:26 NURSING NOTE: SIOMARA SANTACRUZ [facility] LOCAL TITLE: Nursing Care Plan/Initial B [facility] STANDARD TITLE: NURSING NOTE DATE OF NOTE: DEC 07, 2021@02:26 ENTRY DATE: DEC 07, 2021@02:26:57 AUTHOR: SIOMARA SANTACRUZ EXP COSIGNER: URGENCY: STATUS: COMPLETED Plan of Care: ACTIVITY INTOLERANCE Related to: Other: SARS-COVS-2 AND POSSIBLE ASP IRATION PNEUMONIA Goals: Patient will identify factors that aggra vate activity intolerance., Patient will report the ability to perform requ ired activities of daily living., Patient will verbalize and use energy- conservation techniques., Patient will identify methods to reduce activit y intolerance. Interventions: Establish guidelines and goals o f activity with the patient, Evaluate need for Safe Patient Handling equipme nt, Encourage physical activity consistent with the patients energy le vels, Encourage adequate rest periods, Teach the patient to recognize si gns of overexertion, Teach energy conservation techniques, Provide bedside commode if indicated COMMENT: PATIENT REPORTS SHORTNESS OF BREATH WIT H AMBULATION. CONTINUE TO MONITOR PATIENT'S AMBULATORY STATUS AND O2 SATUR ATION WITH ACTIVITY, APPLY SUPPLEMENTAL O2 NEEDED AND ALERT PROVIDER RISK FOR ASPIRATION Related to: <*> Impaired swallowing GOALS: <*> Patient maintains patent airway. <*> Patient's risk of aspiration is decreased a s a result of ongoing assessment and early intervention. INTERVENTIONS: <*> Assess for and report signs and symptoms of aspiration of secretions or foods/fluids <*> Monitor breath sounds <*> Monitor vital signs for increased respirato ry rate, increased temp and heart rate <*> Instruct client to avoid laughing and talki ng while eating and drinking. <*> Encourage patient to eat slowly <*> Maintain patient in high-Valerio's position during and for =30 minutes after ingestion of foods and fluids <*> Have suction set up and available <*> Auscultate bowel sounds COMMENT: PATIENT IS ADMITTED WITH POSSIBLE ASPIR ATION PNEUMONIA. USE ASPIRATION PRECAUTIONS WITH EATING AND DRINKING. PATIENT DEMONSTRATED DIFFICULTY SWALLOWING PILLS AND REPORTS PAIN WITH SWALLOWING WHICH HAS MADE IT DIFFICULT TO EAT AND DRINK FOR 6 MONTHS. NO SIGNS/SYMPTOMS OF FUNGAL INFECTION IN MOUTH. SPEECH CONSULT HAS BEEN INITIATED SAFETY DEFICIT GOALS: <*> Patient will remain free of injury througho il hospitalization. <*> The patient will ask for nursing assistance when needed. INTERVENTIONS: FALL PREVENTION INTERVENTIONS: <> Assess the pt's coordination and balance bef ore assisting with transfer and mobility activities. <> Frequent toileting (every 1-2 hours and prn) , Use non-skid footwear for all patients and educate on proper use. <> Bed height low position. <> Lock all moveable equipment before transferr ing patient. <> Individualized equipment specific to pt need s (i.e., transfer belts). <> Place pt care articles, meals and call light within reach (i.e., meal tray). <> Provide physically safe environment (elimina te spills, clutter, cords, unnecessary equipment). <> Provide adequate lighting. <> Instructed in all activities prior to initia ting assistive devices. <> Instruct on use of grab bars. <> Instruct pt on medication (time/dose, side e ffects and interactions with food). <> Actively engage pt and family in all aspects of Fall Prevention Program. COMMENT: PATIENT REPORTS A FALL LAST WEEK AND F EELING UNSTEADY TONIGHT. BED ALARM ON AND PATIENT ASKED TO CALL FOR NURS ING ASSISTANCE BEFORE EXITING BED. CONTINUE TO MONITOR AMBULATO RY STATUS /es/ SIOMARA SANTACRUZ REGISTERED NURSE Signed: 12/07/2021 02:38 Dec 07, 2021 12:30 NURSING NOTE: SIOMARA SANTACRUZ [facility] TITLE: VAAES SKIN INSPECTION/ASSESSMENT B [facility] STANDARD TITLE: NURSING NOTE DATE OF NOTE: DEC 07, 2021@00:30 ENTRY DATE: DEC 07, 2021@02:17:03 AUTHOR: SIOMARA SANTACRUZ EXP COSIGNER: URGENCY: STATUS: COMPLETED INITIAL SKIN INSPECTION/ASSESSMENT SKIN INSPECTION: Skin Color: Usual for ethnicity Skin Temperature: Warm Skin Moisture: Normal Skin Turgor: Elastic (normal/immediate) Nate Skin Assessment: The patient's Nate Scale Score is 19. The pat ient is considered not at risk for development of pressure ulcers/injurie s. Sensory perception -- ability to respond meanin gfully to pressure-related discomfort No impairment. Moisture -- degree to which skin is exposed to moisture Rarely moist. Activity -- ability to change and control body position Walks occasionally. Mobility -- ability to change and control body position Slightly limited. Nutrition -- usual food intake patterns Probably inadequate. Friction and shear No apparent problem. INTERVENTIONS: The pressure injury interventions were not need ed - patient/resident is not at risk. RISK FACTORS THAT INCREASE RISK FOR DEVELOPING PRESSURE INJURIES The patient/resident does not have any addition al risk factors. SKIN ALTERATIONS: Pressure Ulcer/Injury Documentation from the sc st year: No data available Localized abnormality: Other: Location(s): BLANCHABLE REDNESS TO LEFT HEEL, A LITTLE BOGGY /es/ SIOMARA SANTACRUZ REGISTERED NURSE Signed: 12/07/2021 02:24 Dec 07, 2021 12:28 NURSING ADMISSION EVALUATION NOTE: SIOMARA SANTACRUZ [facility] LOCAL TITLE: VAAES ACUTE INPATIENT NSG ADMISSIO N SCREEN B [facility] STANDARD TITLE: NURSING ADMISSION EVALUATION NOT E DATE OF NOTE: DEC 07, 2021@00:28 ENTRY DATE: DEC 07, 2021@00:28:55 AUTHOR: SIOMARA SANTACRUZ EXP COSIGNER: URGENCY: STATUS: COMPLETED ALLERGY/ADVERSE DRUG REACTION (ADR) REVIEW (MRT 5) FACILITY ALLERGY/ADR -------- No Remote Allergy/ADR Data available for this pa tient [place] [facility] LISINOPRIL Allergy/Adverse Drug Reaction Review to be condu cted by: Nurse Results of Allergy/ADR Review: Allergy/Adverse Drug Reaction list confirmed MEDICATION REVIEW (MRR1) Did patient bring medication(s) from home? No Medication Review to be conducted by Provider GENERAL INFORMATION Admission information given by: Patient Preferred Language for Discussing Healthcare: Turkmen Preferred mode of communication: Verbal Written Sensory Deficits: Visual deficit: Bilateral BIFOCALS Items at bedside: Glasses/contacts: INFECTIOUS DISEASE RISK SCREEN Travel Screen: Have you traveled within the [place] with in the last 21 days? No Have you traveled outside the [place] wit hin the last 21 days? No Within the last 14 days, have you had: Close exposure (within 6 feet for more than 15 min) to someone with known (or suspect) case of COVID-19 Other Exposure to Infectious Disease: No known exposure Patient reported the following symptoms: Nausea Shortness of Breath (Dyspnea) History of Multiple Drug Resistant Organism (MD KATHRIN): No NUTRITION SCREENING Malnutrition Screening Measurement DT WEIGHT LB(KG)[BMI] 12/06/2021 21:43 233.7(106.00)[32*] 12/06/2021 11:40 232.6(105.51)[32*] 10/18/2021 14:06 276(125.19)[38*] 09/05/2021 12:37 275.1(124.78)[37*] 07/18/2021 10:03 282.3(128.05)[38*] Lost weight recently without trying: Yes Amount weight lost: Greater than 15 kg (33 lbs) (4 points) Eating poorly due to decreased appetite: No (0 points) Total Score: 4 Additional Nutrition Screening ==== ======== Patient requiring tube feedings/TPN/PPN? No Do you have any food intolerances, special dieta ry needs, ethnic, cultural or jewish preferences affecting dietary needs? No In the past 3 months, did you ever run o ut of food and were not able to access more food or money to buy more food? No RISK SCREENINGS Alcohol Screen: Screen to be completed by: Nurse SCREEN FOR ALCOHOL (AUDIT-C) An alcohol screening test (AUDIT-C) was negericv e (score=0). 1. How often did you [...] to responses to other questions. Have you consumed alcohol within the last 72 ho urs? No Tobacco or Nicotine Use: Former - tobacco user Substance Use Assessment: Have you used any recreational drugs or narcoti cs in the last 72 hours? No RISK OF WANDERING History of wandering or elopement: No Patient expressing a desire/plan to leave immed iately: No SUICIDE SCREEN The [place] Suicide Severity Rating Scale (C-SSRS) has been completed within the past 24 hours Result of C-SSRS screener done today was NEGATI VE. EXPOSURE TO VIOLENCE AND ABUSE PRE-SCREEN Are you worried for your safety, that you will be hurt or harmed? No Has anyone tried to force you to sign papers or use your money against your will? No POST TRAUMATIC STRESS/ SEXUAL TRAUMA CARE CONSIDERATIONS To minimize a startle response, what is your preference on how best to awaken you? No preference SEXUAL HEALTH Do you have any concerns or health questions re garding your sexual health that you would like to discuss with your provid er? No ADVANCE DIRECTIVE Notification of Rights Related to Advance Direc tives: Written notification provided. The patient wishes to receive information about or assistance with Advance Care Planning and/or Advance Directive: No SPIRITUAL ASSESSMENT Are there jewish practices or spiritual conc erns you want the j2ee application developer, your provider, and other health care team membe rs to know? No ANTICIPATED DISCHARGE NEEDS Where do you live? Housing owned/rented by [place] Do you have a legal guardian/conservator? No Method of transportation: Other: Comment: WILL PICK HIM UP EDUCATIONAL NEEDS/LEARNING STYLE Barriers to learning: Cognitive: MEMORY Patient learning style preferences: Demonstration Printed materials Verbal explanation VISITOR INFORMATION Will you have a primary support person while in the hospital? Yes: Relationship to patient: Spouse Visitor Name: SUSAN MEEK (EXTENDED FAMILY MEMBER/) Contact Number: Patient's Visitor Restriction preferences: No Privacy Review: CHAVEZ FALL SCALE & TIPS PROGRAM Chavez Fall Scale: The Chavez Fall scale was performed and score wa s 85. This is indicative of high risk for falls. History of falling in past 3 months? Yes Secondary diagnosis: Yes Ambulatory aid: Crutches/cane(s)/walker Intravenous therapy/Heparin lock: Yes Gait/Transferring: Weakness Mental Status: Oriented to own ability/knows own limitations Fall Tailoring Interventions for Patient Safety (TIPS) Fall TIPS initiated with patient: Yes Fall TIPS reviewed with patient: Yes ASPIRATION RISK ASSESSMENT AND SWALLOW SCREEN Difficulty swallowing thin or thick liquids, pi lls, saliva, solids BEDSIDE SWALLOW SCREEN 1. 5 mL via a cup: A. Cough after swallowing: No B. Audible throat clear after swallowing: No C. Wet voice with AHHH: No 2. 5 mL via a cup: A. Cough after swallowing: No B. Audible throat clearing after swallowing: No C. Wet voice with AHHH: No 3. 90 mL via a cup: A. Cough after swallowing: No B. Audible throat clear after swallowing: No C. Wet voice with AHHH: No D. Unable to continuously drink: No E. Wet voice with AHHH after 1 minute: No Bedside Swallow Screen Results: Pass Speech Language Pathology consult ordered. PAIN ASSESSMENT Are you currently experiencing pain? Yes - DVPRS scale used to assess Location: ESOPHAGUS [employer] Pain Rating Scale (DVPRS): Pain Score: 6 Patient's acceptable pain goal: Primary Pain Assessment: Pain Type: Chronic Describe Pain (Quality): Other: ACHE WITH SWALLOWING Pain Alleviating Interventions: Positioning Therapeutic modalities (i.e., aroma, music, rel axation) Other: LYING DOWN AFTER EATING /es/ SIOMARA SANTACRUZ REGISTERED NURSE Signed: 12/07/2021 02:26 Dec 06, 2021 09:40 NURSING INPATIENT NOTE: SIOMARA SANTACRUZ [place] [facility] LOCAL TITLE: VAAES ACUTE INPATIENT NSG SHIFT SESSMENT B [facility] STANDARD TITLE: NURSING INPATIENT NOTE DATE OF NOTE: DEC 06, 2021@21:40 ENTRY DATE: DEC 07, 2021@01:40:17 AUTHOR: SIOMARA SANTACRUZ EXP COSIGNER: URGENCY: STATUS: COMPLETED Version 2.2 Charting in accordance with ME APPROVED ENTERPRI SE STANDARD (MEAES) ACUTE INPATIENT/REHABILITATION KENDRICK SING ADMISSION SCREENING, ASSESSMENT, AND STANDARDS OF CARE ASSESSMENT HANDOFF Safety check completed Comment: PATIENT ARRIVED TO FLOOR VIA WHEELCHAIR, VITALS OBTAINED AND WERE WITHIN NORMAL RANGE. PATIENT STATES THAT HE HAS BEEN F EELING UNSTEADY WITH AMBULATION, BED ALARM APPLIED ENVIRONMENTAL SAFETY MANAGEMENT Implemented safety standards of care: -[place] to unit & environment -Adequate room lighting -Bed in low and locked position -Call light within reach -Personal items within reach -Traffic path in room free of clutter -Non-slip footwear -Upper/half length side rails up for bed mobili ty -Sensory aids within reach -Encourage patient to utilize sensory support Additional safety measures: Alarms: Bed Isolation Type: Airborne Other: Specify: SARS-COV-2 PRECAUTIONS Education reinforced for patient/family/caregiv er/visitor related to isolation precautions/actions required. NEUROLOGICAL Neurological Orientation: Oriented x4 Level of Consciousness (AVPU): Alert = Appears aware of and responsive to the environment on their own. Follows commands, open eyes spontaneously, and tract objects. Affect/behavior: Cooperative Calm Reynoso Agitation Sedation Scale (RASS): 0 Alert and calm Neurological-Aspiration Risk Assessment: Difficulty swallowing thin or thick liquids, pi lls, saliva, solids Supplemental Neurological Assessment: Ability to follow commands: Able to follow complex command [place] Coma Scale: Eye Opening Response: Eyes open spontaneously - 4 points Best Verbal Response: Oriented - 5 points Best Motor Response: Obeys commands - 6 points Total Score [place]: 15 Pupils: Right: size: 3mm PERRL Left: size: 3mm PERRL NEUROMUSCULAR/NEUROVASCULAR EXTREMITIES ASSESSM ENT Strength: Nursing Clinical Director Bilateral: Strong Upper Extremity Bilateral: Full strength Lower Extremity Bilateral: Full strength Sensation: Upper Extremity Sensation Bilateral: Intact Lower Extremity Sensation Bilateral: Intact Temperature: Upper Extremity Temperature Bilateral: Warm Lower Extremity Temperature Bilateral: Warm CARDIOVASCULAR Heart Sounds: Normal (S1S2) Heart Rate/Rhythm (without hall monitor): 87, Irregular, AUSCULTATED APICALLY FOR 1 MINUT E Capillary Refill: All 4 extremities, less than or equal to 3 seco nds. Peripheral Pulses: All 4 extremities, 3+ normal. Edema: None Cardiovascular - Embolism Prevention: Comment: ENOXAPARIN RESPIRATORY Respirations: Unlabored Pattern: Regular Breath Sounds Auscultated: Posterior only Right Upper Lobe: Clear Left Upper Lobe: Clear Right Middle Lobe: Clear Right Lower Lobe: Diminished Left Lower Lobe: Clear Position Interventions (Breathing/Oxygenation/ rway Clearance): Lying on right side Supplemental Respiratory: Continuous Pulse Oximetry Incentive Spirometry: Maximum volume achieved (mL): 1250 Times performed: 10 GASTROINTESTINAL Last bowel movement: 12/06/21 IN THE AFTERNOON Bowel movement reported by patient-unwitnessed Elimination: Continent Abdominal Description: Rounded Palpation: Soft, Non-tender Bowel Sounds: RUQ: Active LUQ: Active RLQ: Active LLQ: Active GENITOURINARY Elimination: Continent Color/Characteristic: Clear Yellow ACTIVITIES OF DAILY LIVING Hygiene ADLs: Dressing: Upper Body: Independent Lower Body: Independent Eating: Independent, HEALTHY DIET, TAKES PILLS ONE AT A TIME WITH WATER Foot Care: Inspection Pericare: Independent Personal Care: Independent Toileting: Minimal assist Supplemental Activities of Daily Living: Sleep: Sleep quality: Easily returns to sleep after waking Sleep interruptions: Wakened for medical care MOBILITY Mobility Status: Minimum assist: Stands with support only (Unsteady or requires verbal cueing) Unable to march and step independently Equipment utilized: Cane Walker Gait: Other: HAVE NOT SEEN PATIENT AMBULATE YET IV LINES Peripheral IV: Present on admission: Line #1: Location: Right, Antecubital Gauge: 20 Line #1: Assessment: Location: Right, Antecubital Gauge: 20 Dressing Condition: Clean, dry, intact Site Condition: No redness, swelling, pain Line Status: Patent/infusing Capped Flushed PSYCHOSOCIAL Type of Emotional Support Provided: Ventilation of feelings encouraged /es/ SIOMARA SANTACRUZ REGISTERED NURSE Signed: 12/07/2021 08:44 Dec 06, 2021 06:33 INTERNAL MEDICINE H & P NOTE: [facility] [facility] LOCAL TITLE: H&P /GIM/Medicine [facility] STANDARD TITLE: INTERNAL MEDICINE H & P NOTE DATE OF NOTE: DEC 06, 2021@18:33 ENTRY DATE: DEC 06, 2021@18:34:05 AUTHOR: ANTONY MCKEON EXP COSIGNER: RATLIF F,ALVARO URGENCY: STATUS: COMPLETED GIM Admission History & Physical Admission Date: Nov Admission Dx: pneumo rachel with COVID + Admitting Physician: ASHLY TODD DOUGLAS N [address] [place], [place] [address] Primary Care Physician: KATEY MELTON MD *WH* CHIEF COMPLAINT: SOB HISTORY OF PRESENT ILLNESS: Mr. Lucas Meek is a 71 year old MALE with a history of Stage IIIa adenocarcin alice EGFR/ALK negative s/p chemotherapy/radiation/dervalumab, COPD, diverti culitis s/p partial colonic resection, chronic low back pain s/p discectomy here for a 6 month history of 70 pound unintentional weight loss, fatigue, weakne ss, anorexia, odynophagia, myalgias, intermittent diarrhea and gene ral malaise alongside a 10 day history acutely of increased sputum production, SOB, and recent COVID+ test o n home kit after recent sick contact exposure( had COVID+). The patient i n the last 10 days has felt progressively worse and was implored by his to present to the emegency department given his worsening SOB, nausea, clark ise and odynopahgia. He is followed by Dr. Cameron at [facility] for monitoring of his hx of lung cancer however the patient reports that he has not seen his onc ologist in over 6 months with the most recent chest CT performed at [facility]) back in june of 2021. The patient on ED examination was found to have near complete opacification of right hemithorax on chest X-ray; with subsequent CT showing evidence of new abnormal pulmonary findings suggestive o f a large volume aspiration event. The patient was started on remde sevir and given one dose of pip/tazo 4.5 mg however was subsequently started on empiric abx treatment(ceftriaxone and metronidazole) with discountination of pip/tazo. His UA was unremarkable, he had blood cultures drawn X2, his BNP was 224, he had no leukocytosis evident, he had a negative tropo aimee and his electrolytes were within normal limits. Influenza A and B and RSV were negative however he had a positive COVID test. 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 He denies any recretional drug use or IV drugs. He is COVID vaccinated with one booster. He uses a cane to ambulate at home and his is a primary support for him. He has a 102 pack yea r smoking history but quit in 2016. He denies chest pain, chest palpations, acute visual changes or fevers chills. He endorses nausea, chronic cough, fatig ue, wekaness, but denies presently SOB on medical interview of note. He takes all his medications as prescrib ed but did discountinue metformin last week give concern for diarrhea subacutely. REVIEW OF SYSTEMS:See above General: Head and Neck: Respiratory: Cardiovascular: GI: : Musculoskeletal: Neurological: Psychiatric: Past Medical History: 1. 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 Osteoarthritis 3. Psoriasis 4. Spinal stenosis of lumbar region 5. Low back pain 6. Joint pain 7. Primary malignant neoplasm of lung 8. Morbid obesity 9. Benign essential hypertension 10. Chronic obstructive lung disease Past Surgical History: 04/01/2020 open incisional hernia repair (COMPLE JAGUAR) w/mesh, recurrent lysis of adhesions 02/27/2020 LEFT CATARACT EXTRACTION/PHACO (COMPL ETED) W/IOL PLACEMENT 01/09/2020 RIGHT CATARACT EXTRACTION/PHACO (ABOR JAGUAR) W/IOL PLACEMENT 10/24/2019 RIGHT CATARACT EXTRACTION/PHACO CANCE LLED W/IOL PLACEMENT 02/20/2019 OPEN ILIOCECAL RESECTION (COMPLETED) LYSIS OF ADHESIONS 12/24/2018 BILATERAL L3-5 LUMBAR FACET/MBB (COMP LETED) INJECTION 05/23/2016 exploratory laparotomy, low (COMPLETE D) anterior resection umbilical hernia repair rigid sigmoidoscopy appendectomy # ALLERGY HISTORY Local Allergy/ADR: LISINOPRIL RART - Remote Allergy/ADR No Remote Allergy/ADR Data available for this pa tient MEDICATION LIST/ RECONCILIATION (Review of medications and allergies at the time of this encounter included: Local and remote allergies, active outpatient, a ctive inpatient, pending outpatient, pending inpatient prescripti ons dispensed from this [facility] (local) and dispensed from another [facility] or [facility] facility (remot e) as well as local clinic medications, locally documen jaguar non-VA medications and local prescriptions that have in the past 90 days or been discontinued in the past 90 days. If a category is not listed below it means there were no relevant local and/or remote medications and/or allergies) Active/ Pending/ Medications Active and Recently Outpatient Medicatio ns (excluding Supplies): Active Outpatient Medications Status 1) ALBUTEROL [...] 10 MIN AND RINSE 12 Total Medications Remote Active Medications No Active Remote Medications for this patient Medications reconciled on ad mission with and are as documented in CPRS? [ X] Yes, the medication list was reviewed with the patient/caregiver, and the patient has been sampson ing medications as documented in CPRS [ ] No, the medication list was reviewed with t he patient/caregiver, and the following changes or discrepancies were identified: [ ] Medication Reconciliation was attempted at this encounter but unable to complete for the following reason:___ [ ] Patient reports taking no medications HISTORY Service - NONE FOUND - Combat NO - Period of Service: - Service Connected: SERVICE CONNECTED % - NONE FOUND - Notable Exposure Concerns (Chemical, Biologica l, Psychological Trauma Exposure, or Physical): SOCIAL HISTORY: Marital Status: Occupation/ Employment Status: UNK,UNKNOWN Additional Social History: SUBSTANCE USE/ADDICTION HISTORY: # Nicotine Tobacco History:___former smoker * Tobacco Use Treatment Provided/Offered: [ X] N/a as patient is a not an active smoker [ ] Patient is an active smoker or quit in the last 30 days, counseling offered, following discussion patien t is agreeable to the following cessation interventions: * 1) FDA approved cessation medication during h ospital stay: [ ] Patient Agrees [ ] Patient Declines * 2) Additional Counseling during hospital stay : [ ] Patient Agrees [ ] Patient Declines # Alcohol: [ ] The patient was not screened for alcohol us e on admission because of cognitive impairment as listed in Ac tive Problem List [ ] Patient refused screening for alcohol misus e on admission Audit-C screen: 1.How often did you have a drink containing alc ohol in the past year? [ X] Never 0 points [ ] Monthly or less 1 point [ ] 2-4 times per month 2 points [ ] 2-3 times per week 3 points [ ] 4 or more times per week 4 points 2.On days in the past year when you drank alcoh ol how many drinks did you typically drink? [ X] 0, 1, or 2 0 points [ ] 3 or 4 1 point [ ] 5 or 6 2 points [ ] 7-9 3 points [ ] 10 or more 4 points 3.How often did you have 6 or more drinks on an occasion in the past year? [X ] Never 0 points [ ] Less than monthly 1 point [ ] Monthly 2 points [ ] Weekly 3 points [ ] Daily or almost daily 4 points * Total Audit C Score =___0____ [ ] Audit C score = 5 thus c oncern expressed to patient about their alcohol use with specific feedback regarding relationship o f alcohol to the patients health concerns including high blood pressure, potential for/worsening of liver disease,and potential for/worsening of me ntal illness. We advised the to: [ } abstain from alcohol OR [ ] to reduce alcohol consumption to: [ ] Additionally since AUDIT C =5, the following information discussed and offered to the patient on: [ ] Refer to MH or AMI program, such as rosenda MAGDALENO further evaluation or treatment [ ] Other: [ ] The patient declines referral for alcohol u se assessment or treatment at this time # Substance/Opioid abuse: [X ] n/a [ ] patient endorses the following substance ab use concerns: [ ] Referral to SAT placed FAMILY HISTORY Did not elicit PHYSICAL EXAM: DATE/TIME TEMP PULSE RESP BP PAIN WEIGHT 12/06/21 @ 1616 98.8 110 23 120/68 0 12/06/21 @ 1430 115 23 131/60 0 12/06/21 @ 1348 0 General: NAD, laying in emergency room table Head and Neck: supple neck with some likely evid ent right palpable lymphadenopathy Respiratory: Lungs sounds absent on right lower lobe; Cardiovascular: RRR, no MRG Abdomen/GI/: slightly distended and tender dif fusley to palpation Musculoskeletal:no bony deformities Neurological: EOMI, II-XII grossly intact Psychiatric/Mental Status: appropiate affect LABS: HEMATOLOGY: 12/06/2021 12:00 \ 12.4 / 7.2 ------ 180 / 39.6 \ PMN: 82.1% H LYMPH: 9.7% L MONO: 7.0% EOS: 0.1% L BASO: 0.3% BANDS: 0.8% H A.7 L MCV: 81.5 L RDW: 16.2 H MCH: 25.5 L Mentzer index of 16.77 (> 13, predictive of BETH) CHEMISTRY: Dec 06, 2021@12:00 138 103 13 / 105 3.8 23 0.90 \ Gap: 15` ` - corrected for albumin BNP(P): 224.8 H TROPONIN II: 0.03 @ 12/06/2021 12 :00 eGFR(CKD-EPI 2020): >90.0 Calcium: 8.7 @ 12/07/19 12:00 Corrected Calcium: 9.7 (alb 2.8 on Dec 06, 2021) @ 12/06/2021 12:00 Protein: 6.6 Albumin: 2.8 L ALK: 134 ALT: 13 @ 12:00 AST: 18 FIB-4 SCORE: 1.94 TBil: 0.6 @ 12/06/2021 12:00 URINE STUDIES: UA: Arlin/n/a LE n/a Protein 5 Ketones <2.0 Urob moe otherwise bland @ 12/06/2021 18:00 CLARITY: HAZY URINE PH: 5.0 PROTEIN, URINE: 30 @ 12/06/2021 18:00 WBC SCREEN: Neg RED BLOOD CELL/URINE: <1 @ 2021 18:00 WHITE BLOOD CELL/URINE: 3 HYALINE CAST: 5 H @ 18:00 MUCOUS/URINE: MANY @ 12/06/2021 18:00 OTHER: FLU A(PCR) (NASOPHARYNX): Neg @ 12/06/2021 12:00 FLU B(PCR) (NASOPHARYNX): Neg @ 12/06/2021 12:00 RSV(PCR) (NASOPHARYNX): Neg @ 12/06/2021 12:00 COVID-19(DGR-ucl-[id number])DETECTED H* (NASOPHAR YNX): Ref: @ 12/06/2021 12:00 TREND DATA: WBC HGB HCT PLT MCV ======= 7.2 12.4 39.6 180 81.5 @ 12/06/2021 12:00 PMN Lymph [place] Eos Baso Bands ======= 82.1 9.7 7.0 0.1 0.3 0.8 @ 12/06/2021 12:00 Na K Cl CO2 AG BUN Cr Ca ======= 138 3.8 103 23 12 13 0.90 8.7 @ 12/06/2021 12:00 AST ALT AlkP TBil Alb Prtn ======= 18 13 134 0.6 2.8 6.6 @ 12/06/2021 12:00 Glucose ======= 105 12:00 @ 12/06/2021 SG Blood Nitr Gluc Keto Bili Urobi ======= 1.029 - - - 5 - <2.0 @ 12/06/2021 18:00 MICRO: LAC - pending @ 12/06/2021 15:30 LAC - pending @ 12/06/2021 15:30 EKG: normal sinus rhytym Pg. 1 [place] 12/06/21 18:34 CONFIDENTIAL ECG REPORT LUCAS MEEK Lei [id number] MED 190-A : J AN PROCEDURE DATE/TIME: 12/06/21 11:37 - - - - - - - - - - - - - - - - - - - - - - - - - - - - - - - - - - - - - - - - SANCHEZ/CLINIC: AGE: 71 SEX: MALE HT IN: WT LBS: BLOOD PRESSURE: TYPE: VENT RATE: 94 NV INTERVAL: QRS DURATION: 86 QT: 378 QTC: 472 P AXIS: 14 R AXIS: 5 T AXIS: 18 INTERPRETATION: INSTRUMENT DX: Sinus rhythm with premature atrial complexes Nonspecific ST and T wave abnormality Abnormal ekg When compared with ECG of 06-DEC-2021 11:33, No significant change Confirmed by MARIYA KRISHNAMURTHY MD ([id number]) on 4:35:39 PM CONFIRMATION STATUS: CONFIRMED COMPARISON: COMMENTS: HEART MEDS: INTERPRETED BY: Radiological Investigations: Imaging Impression (14 Days) Date Procedure CPT Status Case # 12/06/2021 CT THORAX W/O CONT [id number] Verified 138 1. A probable majority of the new, [...] CT or MRI for more definitive characterization. 12/06/2021 CHEST SINGLE VIEW [id number] Verified 118 Near complete opacification of the right hemith orax likely due to a combination of pleural fluid and associated c ompressive atelectasis. A superimposed infectious process cannot entirely be excluded. The left lung is clear. ASSESSMENT: 71 year old MALE with a history of Stage IIIa adenocarcinoma EGFR/ALK negative s/p chemotherapy/radiation/d ervalumab, COPD, diverticulitis s/p partial colonic resection, chronic low back pain s/p discectomy here for a 6 month history of 70 pound unintentional weight loss, fatigue, weakne ss, anorexia, odynophagia, myalgias, intermittent diarrhea and gene ral malaise alongside a 10 day history acutely of increased sputum production, SOB, and recent COVID+ with symptomatology concerning for aspiration PNA [place] recurrence of primary malignancy. The patient's co nstellation of symptoms ranging from increased SOB, weakness, fatigue, and 70 pound weight loss(298. 4lb on 05/16/2021-->232.6lb today) are concerning for a recurrence of malign jose armando given the radiologic evidence that shows potential progression and li yeimi new pleural fluid at the right hemithorax. Another potential etiology how ever is the patient's odynophagia that he suggests has worsened over t he past several days with CT findings concerning for larg e volume aspiration event per radiologic impression. These findings are additiona lly compounded by his COVID+ test and therefore the plan is to start remdesivir today with continued tretament subsequently for the next 4 days alongside empirical abx for PNA(ceft riaxone and metronidazole). Additionally will benefit from continued ID cons ultant perspective and pulmonology consult to dicuss utility of procedu res(thoracentesis vs. bronchoscopy). We will also monitor blood cultur es for growth. PLAN: #SOB #aspiration PNA? -Ceftriaxone 2 g/day + metronidazole 500 mg IV/P O q 8 -appreciate pulmonology consult #COVID+ -Remdesivir 200 mg IV once and 100 mg IV qd x 4 more days -Respiratory isolation -appreciate ID recs #[id number] -Speech and swallow evaluation #COPD -home inhaler regimen #HTN -continue home amlodipine and losartan #GERD -continue PPI home regimen #depression -continue home sertraline #other home meds -continue cholecalciferol -continue diclofenac gel - VTE prophylaxis: [ X] Lovenox 40mg SC daily [ ] Lovenox 30mg SC daily (CrCl <30 but not on HD) [ ] Heparin 5000units SC TID (ESRD or other Soniya enox contraindication) [ ] Other pharmacologic VTE prophylaxis: [ ] Patient declines VTE pharmacologic prophyla xis despite discussion of VTE risk [ ] Very high risk for VTE (Critical Illness, s troke) thus both pharmacologic prophylaxis and Venodynes applied [ ] Pharmacologic prophylaxis contraindicated d ue to: [ ] SCD/Venodynes applied [ ] SCD/ Venodynes contraindicated due to leg w ounds, delirium concers [ ] Patient declines Venodynes - LST Note entered or updated (if applicable, y/ n): [ ] yes [X ] N/a - Patient is 65 or older and at risk for acute d elirium during this hospitalization or has delirium or menta l status changes (including agitation, encephalopathy, hallucinations, lethargy, or unr esponsive) requiring delirium precautions orders. [ ] Yes, delirium precautions ordered (see orde rs) [ ] Patients mental status assessed and does no t have delirium [ ] Patient <65 years old so not applicable - Medication Reconciliation The patients outpatient medications were contin ue as inpatient medications with the following exceptions: [ ] No exceptions [ ] Medications discontinued: [ ] Medications changed: - Does Patient have a penicillin allergy [X ] no [ ] yes If yes standardized allergy interview note shou ld be considered and if appropriate, considered for test dose pr otocol Problem List: Active problems - Computerized Problem List is t he source for the followin. 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 Osteoarthritis 3. Psoriasis 4. Spinal stenosis of lumbar region 5. Low back pain 6. Joint pain 7. Primary malignant neoplasm of lung 8. Morbid obesity 9. Benign essential hypertension 10. Chronic obstructive lung disease Inactive Problem List Problem List - Inactive - NONE FOUND /es/ ANTONY MCKEON Resident Physician Signed: 12/06/2021 19:30 /es/ ALVARO VARGHESE MD DIRECTOR OF AMBULATORY CARDIOLOGY Cosigned: 12/07/2021 11:06
[2022-01-19 08:17] LABS: ALT 15 U/L (16-63); AST 35 U/L (15-37); Albumin 2.4 g/dL (3.4-5.0); Alkaline Phosphatase 158 U/L (46-116); Anion Gap 4.8 mmol/L (3-11); BUN 10 mg/dL (7-18); Bilirubin, Total 0.6 mg/dL (0.2-1.0); CO2 29.2 mmol/L (21.0-32.0); CREATININE 0.7 mg/dL (0.70-1.30); Calcium 8.3 mg/dL (8.5-10.1); Chloride 100 mmol/L (98-107); Glucose 106 mg/dL (74-106); Potassium 3.9 mmol/L (3.5-5.1); Sodium 134 mmol/L (136-145); Total Protein 6.5 g/dL (6.4-8.2)
--- OUTSIDE RECORDS SUMMARY | 2022-01-19 08:17 | XMS_ITS ---
DAILY HOSPITALIZATION DATA [facility] Encounter Summary Created on:December 06, 2021 Patient:LUCAS MEEK Sex:Male :[address] [facility] Address [address] [place] [id number] Support Name Relationship Address Phone YUSRA MEEK Unavailable [address] [place] [address] YUSRA MEEK Unavailable [address] [place] [address] CLAY MOSLEY Unavailable Unavailable SJ SANTACRUZ Unavailable [...] MEDICARE MEDICARE PART Jun 18, PART A [id number] DO KALYANI PATIENT (WNR) (M) A 2016 13A 1 UGLAS MEDICARE MEDICARE PART Jun 18, PART B [id number] DO KALYANI PATIENT (WNR) (M) B 2016 13A 1 U[place]AS MEDICARE MEDICARE PART Jun 18, PART A [id number] KALYANIDO PATIENT (WNR) (M) A 2017 VH81 2 U[place]AS MEDICARE MEDICARE PART Jun 18, PART B [id number] DO KALYANI PATIENT (WNR) (M) B 2017 VH81 2 U[place]AS UNITED MEDICARE MCR(Jun 18 [id number] Luz MEEK PATIENT HEALTHCARE ADVANTAGE NR) 2021 37 0 [facility] (WNR) Selected Encounter This section includes the information on record at [place] for the Encounter. Date/Time Encounter Type Encounter Description Reason Provider Source Dec 06, 2021 09:40 Inpatient Visit DAILY HOSPITALIZATION DATA PM IHE Encounter Template Text not used by [place] Plan of Treatment: Future Appointments (+ 6 [...] AMBULATORY - NONE [place] [facility] Jan 06, 2022 02:00 PM [place] [facility] Jan 10, 2022 11:30 AM AMBULATORY - MEDICINE [facility] Jan 24, 2022 08:00 AM [place] [facility] Feb 21, 2022 10:00 AM [place]UL[place] [facility] Mar 21, 2022 10:30 AM AMBULATORY - [...] the Encounter. The data comes from all [place] treatment [facility]. Test Date/Time Test Type Test Details Facility Name October 31, 2021 07:37 AM Consult Order COMMUNITY CARE-EGD [facility] Cons [facility] November 15, 2021 10:37 AM Consult Order [facility] Cons [facility] Dec 06, 2021 12:52 PM [place]acy [place] Infusion Order [facility] Dec 06, 2021 03:24 PM [place]acy [place] [facility] Dec 06, 2021 03:40 PM Pharmacy [place] [facility] Dec 15, 2021 08:41 AM Consult Order SPEECH PATHOLOGY [place] OUTPAT[place] Cons [facility] Jan 15, 2022 10:08 PM Consult Order [facility]-PALLIATIVE CARE Cons [facility] Lab Results: +/- 30 days of [...] Reference Range Comment Dec 15, 2021 [place] P4 GLU,BUN,CREAT,LYTES,CA Speci men Type: PLASMA 06:43 AM [facility] Comment: Tests performed on Optinel Systems (405) SN:[id number] Ordering Provid er: ISATU TODD Report Released Date/Time: Dec 11, 2021 07:42 AM Reporting Lab: [facility] T [facility] [address] [facility] [address] Performing Lab: [facility] [address] [facility] [address] UREA NITROGEN 9 7-25 SODIUM 137 135-145 POTASSIUM 3.8 3.5-5.0 CHLORIDE 105 100-110 CARBON DIOXIDE 26 20-30 ANION GAP 6 4-16 GLUCOSE 102 H 65-100 CREATININE 0.64 0.5-1.5 CALCIUM 8.1 L 8.5-10.5 eGFR(CKD-EPI 2020) >90.0 >60 Dec 15, 2021 06:43 AM [facility] CBC PROFILE Sp ecimen Type: BLOOD No comment enter ed. Ordering Provid er: ISATU TODD Report Released Date/Time: Dec 10, 2021 07:22 AM Reporting Lab: [facility] [address] [facility] [address] Performing Lab: [facility] [address] [facility] [address] WBC 5.7 4.5-11.0 RBC 4.22 L 4.23-5.66 [...] ABSOLUTE NRBC 0.00 0-0 Dec 14, 2021 [facility] CYTOGENETIC Specimen Type: ESOPHAGUS 02:59 PM VAOC FISH([facility]) Comment: ~For T est: CYTOGENETIC FISH([facility]) ~FISH HER 2 NUE, FFPE See full report in [employer] Image display viewer/tab#LAB-Reference Ordering Provid er: NIURKA MILLER Report Released Date/Time: Dec 21, 2021 12:11 PM Reporting Lab: [facility] [address] [facility] [address] Performing Lab: [facility] CYTOGENETIC FISH([facility]) comment Dec 14, 2021 [facility] P4 GLU,BUN,CREAT,LYTES,CA Speci men Type: PLASMA 06:27 AM [facility] Comment: Tests performed on Optinel Systems (405) SN:[id number] Ordering Provid er: ISATU TODD Report Released Date/Time: Dec 11, 2021 07:42 AM Reporting Lab: [facility] [address] [facility] [address] Performing Lab: [facility] [address] [facility] [address] UREA NITROGEN 10 7-25 SODIUM 137 135-145 POTASSIUM 4.0 3.5-5.0 CHLORIDE 104 100-110 CARBON DIOXIDE 25 20-30 ANION GAP 8 4-16 GLUCOSE 99 65-100 CREATININE 0.67 0.5-1.5 CALCIUM 8.2 L 8.5-10.5 eGFR(CKD-EPI 2020) >90.0 >60 Dec 14, 2021 06:[address] ecimen Type: BLOOD No comment enter ed. Ordering Provid er: ISATU TODD Report Released Date/Time: Dec 10, 2021 07:22 AM Reporting [facility] [address] [facility] [address] [facility] [address] [facility] [address] WBC 6.0 4.5-11.0 RBC 4.29 4.23-5.66 HGB [...] 0.00 0-0 Dec 13, 2021 06:34 AM [facility] CBC PROFILE Sp ecimen Type: BLOOD No comment enter ed. Ordering Provid er: ISATU TODD Report Released Date/Time: Dec 10, 2021 07:22 AM Reporting Lab: [facility] [address] [facility] [address] [facility] [address] [facility] [address] WBC 5.6 4.5-11.0 RBC 4.28 4.23-5.66 HGB [...] ABSOLUTE NRBC 0.00 0-0 Dec 13, 2021 [facility] P4 GLU,BUN,CREAT,LYTES,CA Speci men Type: PLASMA 06:34 AM [facility] Comment: Tests performed on Optinel Systems (405) SN:[id number] Ordering Provid er: ISATU TODD Report Released Date/Time: Dec 11, 2021 07:42 AM Reporting Lab: [facility] [address] [facility] [address] Performing Lab: [facility] [address] [facility] [address] UREA NITROGEN 12 7-25 SODIUM 136 135-145 POTASSIUM 3.9 3.5-5.0 CHLORIDE 105 100-110 CARBON DIOXIDE 24 20-30 ANION GAP 7 4-16 GLUCOSE 102 H 65-100 CREATININE 0.66 0.5-1.5 CALCIUM 8.3 L 8.5-10.5 eGFR(CKD-EPI 2020) >90.0 >60 Dec 12, 2021 [facility] P[facility] GLU,BUN,CREAT,LYTES,CA Speci men Type: PLASMA 06:21 AM [facility] Comment: Tests performed on [employer] Systems (405) SN:[id number] Ordering Provid er: ISATU TODD Report Released Date/Time: Dec 11, 2021 07:42 AM Reporting Lab: [facility] [address] [facility] [address] Performing Lab: [facility] [address] [facility] [address] UREA NITROGEN 11 7-25 SODIUM 139 135-145 POTASSIUM 4.1 3.5-5.0 CHLORIDE 107 100-110 CARBON DIOXIDE 24 20-30 ANION GAP 8 4-16 GLUCOSE 110 H 65-100 CREATININE 0.70 0.5-1.5 CALCIUM 8.3 L 8.5-10.5 eGFR(CKD-EPI 2020) >90.0 >60 Dec 12, 2021 06:21 AM [facility] CBC PROFILE Sp ecimen Type: BLOOD No comment enter ed. Ordering Provid er: ISATU TODD Report Released Date/Time: Dec 10, 2021 07:22 AM Reporting Lab: [facility] [address] [facility] [address] Performing Lab: [facility] [address] [facility] [address] WBC 5.5 4.5-11.0 RBC 4.37 4.23-5.66 HGB [...] 0.00 0-0 Dec 12, 2021 06:00 AM [employer] [facility] MAGNESIUM Sp ecimen Type: PLASMA Comment: Testin g Performed on Optinel Systems (405) SN:[id number] Ordering Provid er: ISATU TODD Report Released Date/Time: Dec 12, 2021 08:24 AM Reporting Lab: [place] [facility] [address] [facility] [address] Performing Lab: [employer] [place] [facility] [address] [facility] [address] MAGNESIUM 1.8 1.6-2.6 Dec 12, 2021 06:00 AM [employer] [facility] PHOSPHORUS Sp ecimen Type: PLASMA Comment: Testin g Performed on [employer]inel Systems (405) SN:[id number] Ordering Provid er: ISATU TODD Report Released Date/Time: Dec 12, 2021 08:24 AM Reporting Lab: [place] [facility] [address] [facility] [address] Performing Lab: [place] [facility] [address] [facility] [address] PHOSPHORUS 3.1 2.5-5.0 Dec 11, 2021 06:15 AM [employer] [place] [facility] ELECTROLYTES Sp ecimen Type: PLASMA Comment: Tests performed on [employer]inel Systems (405) SN:[id number] Ordering Provid er: ISATU TODD Report Released Date/Time: Dec 10, 2021 07:22 AM Reporting Lab: [place] [facility] [address] [facility] [address] Performing Lab: [place] [facility] [address] [facility] [address] SODIUM 137 135-145 POTASSIUM 4.3 3.5-5.0 CHLORIDE 108 100-110 CARBON DIOXIDE 20 20-30 ANION GAP 9 4-16 Dec 11, 2021 06:15 AM [place] [facility] CBC PROFILE Sp ecimen Type: BLOOD Comment: Result s checked Ordering Provid er: ISATU TODD Report Released Date/Time: Dec 10, 2021 07:22 AM Reporting Lab: [place] O[facility] [address] [facility] [address] Performing Lab: [facility] [facility]MEGAT [facility] [address] [facility] [address] WBC 5.8 4.5-11.0 RBC 4.37 4.23-5.66 HGB [...] 0.00 0-0 Dec 11, 2021 06:00 AM [facility] PHOSPHORUS Sp ecimen Type: PLASMA Comment: Tests performed on Optinel Systems (899) SN:[id number] Results checked Ordering Provid er: ISATU TODD Report Released Date/Time: Dec 11, 2021 07:44 AM Reporting Lab: [facility] [facility] [address] [facility] [address] Performing Lab: [place] OMEGAT MTMROC [address] [facility] [address] PHOSPHORUS 3.0 2.5-5.0 Dec 10, 2021 08:05 AM [place] [facility] MAGNESIUM Sp ecimen Type: PLASMA Comment: [place] [id number] on Dec 10, 2021@08:31 Tests performed on Optinel Systems (405) SN:[id number] Ordering Provid er: ISATU TODD Report Released Date/Time: Dec 10, 2021 07:22 AM Reporting Lab: [place] [facility] [address] [place] [facility] [place] [address] Performing Lab: [place] [facility] [address] [place] [facility] [place] [address] MAGNESIUM 1.7 1.6-2.6 Dec 10, 2021 08:05 AM [place] [facility] PHOSPHORUS Sp ecimen Type: PLASMA Comment: [place] [id number] on Dec 10, 2021@08:31 Tests performed on [employer]inel Systems (405) SN:[id number] Ordering Provid er: ISATU TODD Report Released Date/Time: Dec 10, 2021 07:22 AM Reporting Lab: [place] [facility] [address] [place] [facility] [place] [address] Performing Lab: [place] [facility] [address] [place] [facility] [place] [address] PHOSPHORUS 1.8 L 2.5-5.0 Dec 10, 2021 08:05 AM [place] UREA NITROGEN Specimen Type: PLASMA [facility] Comment: [place] [id number] on Dec 10, 2021@08:31 Tests performed on [employer] Systems (405) SN:[id number] Ordering Provid er: ISATU TODD Report Released Date/Time: Dec 10, 2021 07:22 AM Reporting Lab: [place] [facility] [address] [place] [facility] [place] [address] Performing Lab: [place] [facility] [address] [place] [facility] [place] [address] UREA NITROGEN 8 7-25 Dec 10, 2021 08:05 AM [place] [facility] GLUCOSE Sp ecimen Type: PLASMA Comment: [place] [id number] on Dec 10, 2021@08:31 Tests performed on [employer] (405) SN:[id number] Ordering Provid er: ISTAU TODD Report Released Date/Time: Dec 10, 2021 07:22 AM Reporting Lab: [place] [facility] [address] [facility] [address] Performing Lab: [place] [facility] [address] [facility] [address] GLUCOSE 144 H 65-100 Dec 10, 2021 08:05 AM [place] [facility] CALCIUM Sp ecimen Type: PLASMA Comment: [place] [id number] on Dec 10, 2021@08:31 Tests performed on [employer] (405) SN:[id number] Ordering Provid er: ISATU TODD Report Released Date/Time: Dec 10, 2021 07:22 AM Reporting Lab: [place] [facility] [address] [facility] [address] Performing Lab: [place] [facility] [address] [facility] [address] CALCIUM 8.3 L 8.5-10.5 Dec 10, 2021 08:05 AM [place] [facility] ELECTROLYTES Sp ecimen Type: PLASMA Comment: [place] [id number] on Dec 10, 2021@08:31 Tests performed on [employer] Systems (405) SN:[id number] Ordering Provid er: ISATU TODD Report Released Date/Time: Dec 10, 2021 07:22 AM Reporting Lab: [place] [facility] [address] [facility] [address] Performing Lab: [place] [facility] [address] [facility] [address] SODIUM 139 135-145 POTASSIUM 3.7 3.5-5.0 CHLORIDE 107 100-110 CARBON DIOXIDE 24 20-30 ANION GAP 8 4-16 Dec 10, 2021 08:05 AM [place] [facility] CBC PROFILE Sp ecimen Type: BLOOD No comment enter ed. Ordering Provid er: ISATU TODD Report Released Date/Time: Dec 10, 2021 07:22 AM Reporting Lab: [place] [facility] [address] [facility] [address] Performing Lab: [place] [facility] [address] [facility] [address] WBC 7.0 4.5-11.0 RBC 4.54 4.23-5.66 HGB [...] PLASMA AM [facility] PANEL Comment: [place] [id number] on Dec 10, 2021@08:31 Tests performed on [employer]inel Systems (405) SN:[id number] Ordering Provid er: ISATU TODD Report Released Date/Time: Dec 10, 2021 07:22 AM Reporting Lab: [facility] [address] [facility] [address] Performing Lab: [facility] [address] [facility] [address] CREATININE 0.78 0.5-1.5 eGFR(CKD-EPI 2020) >90.0 >60 Dec 09, 2021 06:46 AM [place] [facility] MAGNESIUM Sp ecimen Type: PLASMA Comment: Tests performed on [employer] Systems (405) SN:[id number] Ordering Provid er: ISATU TODD Report Released Date/Time: Dec 08, 2021 10:23 AM Reporting Lab: [place] [facility] [address] [facility] [address] Performing Lab: [place] [facility] [address] [facility] [address] MAGNESIUM 1.6 1.6-2.6 Dec 09, 2021 [facility] P4 GLU,BUN,CREAT,LYTES,CA Speci men Type: PLASMA 06:46 AM [facility] Comment: Tests performed on [employer]inel Systems (405) SN:[id number] Ordering Provid er: ISATU TODD Report Released Date/Time: Dec 08, 2021 05:00 PM Reporting Lab: [facility] [address] [facility] [address] Performing Lab: [facility] [address] [facility] [address] UREA NITROGEN 6 L 7-25 SODIUM 134 [...] Reporting Lab: [facility] [address] [facility] [address] Performing Lab: [facility] [address] [facility] [address] WBC 7.1 4.5-11.0 RBC 4.40 4.23-5.66 HGB [...] 0.00 0-0 Dec 08, 2021 06:39 AM [place] [employer] T [facility] MAGNESIUM Sp ecimen Type: PLASMA Comment: Testin g Performed on [employer] Systems (405) SN:[id number] Ordering Provid er: ISTAU TODD Report Released Date/Time: Dec 07, 2021 10:32 AM Reporting Lab: [facility] [address] [facility] [address] Performing Lab: [facility] [address] [facility] [address] MAGNESIUM 1.5 L 1.6-2.6 Dec 08, 2021 [place] [employer] T P4 GLU,BUN,CREAT,LYTES,CA Speci men Type: PLASMA 06:39 AM [facility] Comment: Testin g Performed on [employer] Systems (405) SN:[id number] Ordering Provid er: ISATU TODD Report Released Date/Time: Dec 07, 2021 10:32 AM Reporting Lab: [employer] T [facility] [address] [facility] [address] Performing Lab: [facility] [address] [facility] [address] UREA NITROGEN 6 L 7-25 SODIUM 136 135-145 POTASSIUM 3.3 L 3.5-5.0 CHLORIDE 104 100-110 CARBON DIOXIDE 22 20-30 ANION GAP 10 4-16 GLUCOSE 133 H 65-100 CREATININE 0.76 0.5-1.5 CALCIUM 8.4 L 8.5-10.5 eGFR(CKD-EPI 2020) >90.0 >60 Dec 08, 2021 06:39 AM [place] [employer] T [facility] CBC PROFILE Sp ecimen Type: BLOOD No comment enter ed. Ordering Provid er: ISATU TODD Report Released Date/Time: Dec 07, 2021 10:32 AM Reporting Lab: [facility] [address] [facility] [address] Performing Lab: [facility] [address] [facility] [address] WBC 8.4 4.5-11.0 RBC 4.75 4.23-5.66 HGB [...] ABSOLUTE NRBC 0.00 0-0 Dec 07, 2021 [facility] P4 GLU,BUN,CREAT,LYTES,CA Speci men Type: PLASMA 06:42 AM [facility] Comment: Tests performed on Optinel Systems (405 SN:[id number] Ordering Provid er: PORFIRIO WALTERS Report Released Date/Time: Dec 06, 2021 06:57 PM Reporting Lab: [facility] [address] [facility] [address] Performing Lab: [facility] [address] [facility] [address] UREA NITROGEN 9 7-25 SODIUM 135 135-145 POTASSIUM 3.5 3.5-5.0 CHLORIDE 103 100-110 CARBON DIOXIDE 22 20-30 ANION GAP 10 4-16 GLUCOSE 92 65-100 CREATININE 0.73 0.5-1.5 CALCIUM 8.0 L 8.5-10.5 eGFR(CKD-EPI 2020) >90.0 >60 Dec 07, 2021 06:42 [place] LIVER PROFILE Specimen Typ e: PLASMA AM VAOC Comment: Tests performed on [employer] Employment Representative (405) SN:[id number] Ordering Provid er: PORFIRIO WALTERS Report Released Date/Time: Dec 06, 2021 06:57 PM Reporting Lab: [facility] [address] [facility] [address] Performing Lab: [facility] [address] [facility] [address] PROTEIN, TOTAL 5.7 L 6.0-8.5 ALBUMIN 2.4 L 3.2-5.0 BILIRUBIN, TOTAL 0.4 0.2-1.2 ALKALINE PHOSPHATASE 109 40-150 ALT(SGPT) 10 7-52 AST(SGOT) 15 5-34 FIB-4 SCORE 1.92 <2.67 Dec 07, 2021 06:42 AM [facility] CBC PROFILE Specimen Type: BLOOD [facility] No comment enter ed. Ordering Provid er: PORFIRIO WALTERS Report Released Date/Time: Dec 06, 2021 06:57 PM Reporting Lab: [facility] [address] [facility] [address] Performing Lab: [facility] [address] [facility] [address] WBC 5.7 4.5-11.0 RBC 4.15 L 4.23-5.66 [...] VAM[facility]OC %) AUTOMATED Comment: Tests performed on [employer] Systems (405) SN:[id number] Ordering Provid er: ISATU TODD Report Released Date/Time: Dec 07, 2021 10:28 AM Reporting Lab: [place] [facility] [address] [facility] [address] Performing Lab: [place] [facility] [address] [facility] [address] RETICULOCYTES (%) AUTOMATED 1.23 0. 6-2.0 RETICULOCYTES (ABS) AUTOMATED 0.052 0.030-0.090 Dec 06, 2021 09:45 [place] MRSA SURVL NARES Specimen Ty pe: NARES PM [facility] DNA No comment enter ed. Ordering Provid er: ALVARO VARGHESE Report Released Date/Time: Dec 07, 2021 02:20 AM Reporting Lab: [place] [facility] [address] [facility] [address] Performing Lab: [place] [facility] [address] [facility] [address] MRSA SURVL NARES DNA NEGATIVE NEGATIVE Dec 06, 2021 06:00 [place] URINALYSIS W/REFLEX TO Speci men Type: URINE PM [facility] CULTURE No comment enter ed. Ordering Provid er: JELANI SÁNCHEZ Report Released Date/Time: Dec 06, 2021 11:57 AM Reporting Lab: [place] [facility] [address] [facility] [address] Performing Lab: [place] [facility] [address] [facility] [address] URINE COLOR Arlin YELLOW SPECIFIC GRAVITY 1.029 [...] 21, RIVER VARIANT Comment: https://www.cdc.gov/coronavirus/2019-ncov/cases-updates/variant- surveillance/variant-info.html The [employer] SARS CoV 2 Hactus Research Assay-GX is a next-generation sequencing (NGS) assa 2021 [facility] SEQUENCING y that determine s the complete genome sequence of the SARS-CoV-2 virus. The assay contains variant-tolerant primers to broaden and improve the coverage for variant detection and increase the sensitivity 12:00 [facility] PNL(WH) of the panel to enable detection from lower viral titer samples. The assay is run on the [employer] Sequencer, which performs automated library preparation, sequencing, analysis, and reporting. PM The sequence an alysis includes determination of viral phylogenetic lineage by comparison to the reference strain Wuhan-Hu-1, GenBank: [id number]. Sequence determination may not be possible owing [...] and its performance characteristics determined by the [facility], which is certified under the Clinical Laboratory Improveme nt Amendments (C MARCO) as qualified to perform high complexity clinical laboratory testing. This test is validated for clinical use at [facility] and should not be regarded as investigational or for research. The FDA does not require this test to go through premarket FDA review, and therefore it has not been cleared or approved by the FDA. This report was reviewed and approved by the on-service pathologist. Ordering Provid er: JELANI SÁNCHEZ Report Released Date/Time: Dec 06, 2021 01:13 PM Reporting Lab: [facility] [address] [facility] [address] Performing Lab: [facility] [address] [facility] [address] SARS-CoV-2 CLADE() 22C (OMICRON) SARS-CoV-2 LINEAGE() BA.2.12.1 Dec 06, 2021 12:00 [facility] COVID-19 AG SCREEN Specimen Type: NASAL CAVITY PM [facility] PANEL BINAX(405) Comment: Testi ng Performed By: Mike Briscoe Ordering Provid er: JELANI SÁNCHEZ Report Released Date/Time: Dec 08, 2021 08:23 AM Reporting Lab: [facility] [address] [facility] [address] Performing Lab: [facility] [address] [facility] [address] COVID-19 AG SCRN(wrj BINAX) POSITIVE HH NE G Dec 06, 2021 12:00 PM [facility] LIVER PROFILE Sp ecimen Type: PLASMA Comment: Testin g Performed on [employer] Employment Representative (405) SN:[id number] Ordering Provid er: JELANI SÁNCHEZ Report Released Date/Time: Dec 06, 2021 11:57 AM Reporting Lab: [facility] [address] [facility] [address] Performing Lab: [facility] [address] [facility] [address] PROTEIN, TOTAL 6.6 6.0-8.5 ALBUMIN 2.8 L 3.2-5.0 BILIRUBIN, TOTAL 0.6 0.2-1.2 ALKALINE PHOSPHATASE 134 40-150 ALT(SGPT) 13 7-52 AST(SGOT) 18 5-34 FIB-4 SCORE 1.94 <2.67 Dec 06, 2021 12:[address] [facility] Sp ecimen Type: PLASMA Comment: Tests performed on Pham Employment Representative (405) SN:[id number] Ordering Provid er: JELANI SÁNCHEZ Report Released Date/Time: Dec 06, 2021 11:57 AM [facility] [address] [facility] [address] Performing Lab: [facility] [address] [facility] [address] TROPONIN II 0.03 0.00-0.29 Dec 06, 2021 [facility] GLU,BUN,CREAT,LYTES,CA Speci men Type: PLASMA 12:00 PM [facility] Comment: Testin g Performed on Pham Employment Representative (405) SN:[id number] Ordering Provid er: JELANI SÁNCHEZ Report Released Date/Time: Dec 06, 2021 11:57 AM Reporting Lab: [facility] [address] [facility] [address] Performing Lab: [facility] [address] [facility] [address] UREA NITROGEN 13 7-25 SODIUM 138 135-145 POTASSIUM 3.8 3.5-5.0 CHLORIDE 103 100-110 CARBON DIOXIDE 23 20-30 ANION GAP 12 4-16 GLUCOSE 105 H 65-100 CREATININE 0.90 0.5-1.5 CALCIUM 8.7 8.5-10.5 eGFR(CKD-EPI 2020) >90.0 >60 Dec 06, 2021 12:00 PM [facility] BNP(P) Sp ecimen Type: PLASMA Comment: Tests performed on Pham Employment Representative (405) SN:[id number] Ordering Provid er: JELANI SÁNCHEZ Report Released Date/Time: Dec 06, 2021 11:57 AM Reporting Lab: [facility] [address] [facility] [address] Performing Lab: [facility] [address] [facility] [address] BNP(P) 224.8 H 10-100 Dec 06, 2021 [facility] [place] COVID-19+FLU/RSV DIAGNOSTIC Spe cimen Type: NASOPHARYNX 12:00 PM [facility] PANEL(405) Comment: Tests performed on KnowR[employer]pert (405) Critical results called to and read back by: ALESHIA WILKINSON RN 12/06/21 @ 1312 Ordering Provid er: JELANI SÁNCHEZ Report Released Date/Time: Dec 06, 2021 11:57 AM Reporting Lab: [facility] [address] [address] Performing Lab: [facility] [address] [address] FLU A(PCR) NEGATIVE NEGATIVE FLU B(PCR) NEGATIVE NEGATIVE RSV(PCR) NEGATIVE NEGATIVE COVID-19([id number]) DETECTED HH NO T DETECTED Dec 06, 2021 12:00 PM [facility] CBC PROFILE Sp ecimen Type: BLOOD No comment enter ed. Ordering Provid er: JELANI SÁNCHEZ Report Released Date/Time: Dec 06, 2021 11:57 AM Reporting Lab: [facility] [address] [address] Performing Lab: [facility] [address] [address] WBC 7.2 4.5-11.0 RBC 4.86 4.23-5.66 HGB [...] Amilcar dy Source Pressure Rate Mass Index Tom 21, 233.7 32 WHITE 2021 09:43 lb RIVER PM [facility] Dec 06, 98.2 F 91 134/59 16 /min 98 % 0 WHITE 2021 09:37 /min mm[Hg] R[facility] PM [facility] Dec 06, 114 129/69 21 /min 97 % WHITE 2021 06:00 /min mm[Hg] RIVER PM [facility] Dec 06, 99 139/68 24 /min 96 % WHITE 2021 05:30 /min mm[Hg] R[facility] PM [facility] Dec 06, 98.8 F 110 120/68 23 /min 94 % 0 WHITE 2021 04:16 /min mm[Hg] RIVER PM [facility] Social History: Smoking Status (Most current) [...] took place. Date/Time Smoking Status/Tobacco Use Comment [facility] Apr 01, 2020 01:16 PM QUIT [...] TOBACCO USE 1-7 YEARS AGO [facility] May 01, 2016 07:26 PM QUIT TOBACCO USE IN PAST YEAR [facility] May 01, 2016 03:11 PM QUIT TOBACCO USE IN PAST YEAR [facility] May 01, 2016 11:19 AM QUIT TOBACCO USE IN PAST YEAR [facility] Mar 16, 2016 12:50 PM V1-PT DECLINES REF TO TOBACCO [facility] CESS PRGM Mar 16, 2016 12:50 PM V1-PT THINKING ABOUT QUIT [facility] TOBACCO USE Aug 12, 2015 08:48 AM CURRENT SMOKER [facility] Yates [facility] Radiology Reports: +/- 30 days of [...] the Encounter. The data comes from all [place] treatment facilities. Date/Time Radiology Report Provider Source Dec 13, 2021 12:57 PM MRI ABDOMEN W/WO CONTRAST: MARYELLEN LONG LUCAS LARES N [id number] -1950 [facility] Exm Date: DEC 13, 2021@12:57 Req Phys: ISATU TODD Loc: OP Unknown/0 12-15-2021@13:20 Img Loc: MRI IMAGING (OOS) [facility] (Case [id number] COMPLETE) MRI ABDOMEN W/WO CONTRAST (M RI Detailed) CPT:20871 Reason for Study: further characterization of a [...] new lyphadenopathy REQUESTING MD: Isatu Todd PAGER: [phone] PHONE: [phone] Weight: 232.2 lb [105.32 kg] (12/12/2021 05:00) [...] patient will need to arrange for a armored car driver to take him/her home after [...] 15, 2021 Date Verified: DEC 15, 2021 Decorative Cutting Machine Tender E-Sig:/ES/MARYELLEN LONG Report: MRI ABDOMEN W/WO CONTRAST [...] MALIGNANCY Primary Interpreting Staff: Staff AMELIA THOMAS (Decorative Cutting Machine Tender) / Dec 10, 2021 09:[address] ABDOMEN & PELVIS: RADIOLOGY,OUTSIDE [facility] LUCAS MEEK N [id number] -1950 [facility] Exm Date: DEC 10, 2021@09:30 Req Phys: ISATU TODD Loc: 1S MED/12-10@10:57 Img Loc: CT SCAN (OOS) Service: [facility] (Case [id number] COMPLETE) CT ABD & PELVIS WITHOUT CONT RAST (CT Detailed) CPT:63543 Reason for Study: 71 yo male with [...] RADIOLOGY [phone] to speak to the appropriate oncology technician. Report Status: Verified Date Reported: DEC 10, 2021 Date Verified: DEC 10, 2021 Decorative Cutting Machine Tender E-Sig: Report: EXAM: CT abdomen and pelvis [...] ph nodes. READING PHYSICIAN: Ramone Munoz D.O. [phone] 12/10/2021 10:55 EDT [facility] [email or web address] [facility] [phone] (For Medical Practitioner Use Only ) [address] [facility] [facility] [address] [place] [address] Attention Patients / Veterans: If you have ques tions or concerns about these test results, please contact your o rdering provider or primary care team. Primary Diagnostic Code: SIGNIFICANT ABNORMALIT Y, ATTN NEEDED Primary Interpreting Staff: RADIOLOGY,OUTSIDE SERVICE, Staff Physician / Dec 09, 2021 07:34 AM BASW (MODIFIED): JESSIE CHENEY [facility] LUCAS MEEK N [id number] -1950 M [facility] Exm Date: DEC 09, 2021@07:34 Req Phys: ISATU TODD Loc: 1S MED/12-09@11:26 Img Loc: XRAY (OOS) Service: [facility] MEDICINE (Case [id number] COMPLETE) BASW (MODIFIED) (RAD Detaile d) CPT:36457 Contrast Media : Barium Reason for Study: dysphagia ?esophageal spasm Clinical History: Report Status: Verified Date Reported: DEC 09, 2021 Date Verified: DEC 09, 2021 Decorative Cutting Machine Tender E-Sig:/ES/JESSIE CHENEY Report: BASW (MODIFIED) , 12/09/2021 [...] REQUIRED Primary Interpreting Staff: JESSIE CHENEY, RADIOLOGIST (Decorative Cutting Machine Tender) /TLC Dec 06, 2021 12:[address] CHEST (INCLUDES ADRENALS): [facility]UCAS [facility]EEK N [id number] -1950 [facility] Exm Date: DEC 06, 2021@12:59 Req Phys: JELANI SÁNCHEZ Loc: [facility] ED DAYS M 1RD (Req'g Loc) Img Loc: CT SCAN (OOS) Service: Unknown (Case [id number] COMPLETE) CT THORAX W/O CONT (CT Detai led) CPT:83244 Reason for Study: Opacification right chest Clinical History: No contrast allergy BUN: 13 (12/06/21 12:00) CREATI: 0.90 (12/06/21 12:00) eGFR 05/16/21 09:43 52 L Weight: 232.6 lb [105.51 kg] (12/06/2021 11:40) BODY MASS INDEX - NO HEIGHTS FOUND Pager number: [phone] STAT orders MUST be called t o RADIOLOGY [phone] to speak to the appropriate oncology technician. Indications - Other: Opacification right chest, covid positive, lung cancer histo Report Status: Verified Date Reported: DEC 06, 2021 Date Verified: DEC 06, 2021 Decorative Cutting Machine Tender E-Sig:/ES/JESSIE CHENEY Report: CT THORAX W/O CONT [...] REQUIRED Primary Interpreting Staff: JESSIE CHENEY, RADIOLOGIST (Decorative Cutting Machine Tender) Primary Interpreting Resident: PRINCE CHAMPION, Resident /BR Dec 06, 2021 11:58 AM CHEST SINGLE VIEW: JESSIE CHENEY LUCAS MEEK N [id number] -1950 M [facility] Exm Date: DEC 06, 2021@11:58 Req Phys: JELANI SÁNCHEZ Pat Loc: [facility] ED DAYS M 1RD (Req'g Loc) Img Loc: XRAY (OOS) Service: Unknown (Case [id number] COMPLETE) CHEST SINGLE VIEW (RAD Detai led) CPT:89639 Proc Modifiers : PORTABLE EXAM Reason for Study: SOB, home covid test positive Clinical History: Report Status: Verified Date Reported: DEC 06, 2021 Date Verified: DEC 06, 2021 Decorative Cutting Machine Tender E-Sig:/ES/JESSIE CHENEY Report: Exam type: Chest x-ray [...] REQUIRED Primary Interpreting Staff: JESSIE CHENEY, RADIOLOGIST (Decorative Cutting Machine Tender) /TLC Pathology Reports: +/- 30 days of [...] the Encounter. The data comes from all [place] treatment facilities. Date/Time Pathology Report Provider Source Jan 03, 2022 10:28 AM LR SURGICAL PATHOLOGY REPORT: STEFANY MILLER LOCAL TITLE: LR SURGICAL PATHOLOGY REPORT [facility] STANDARD TITLE: PATHOLOGY REPORT DATE OF NOTE: JAN 03, 2022@10:28:01 ENTRY DATE: JAN 03, 2022@10:28:01 AUTHOR: NIURKA MILLER EXP COSIGNER: URGENCY: STATUS: COMPLETED $APHDR Reporting Lab: [facility] [CLIA# [id number]] [address] [place] [address] - - - - - - [...] automatically d ocumented from SURGERY package case #[id number] Field (#32) PRINCIPAL PRE-OP DIAGNOSIS, (#.72) OTHER [...] automatically d ocumented from SURGERY package case #[id number] Field (#34) PRINCIPAL POST-OP DIAG, (#.74) OTHER [...] Label: Lucas Meek Paperwork: Lucas Meek Cassette: [id number];..;KALYANI;.;405;[id number] Specimen is labeled: ES bx Received in formalin are several pieces of pale boyd and brown tissue, 1.2 x 0.7 cm in aggregate. Submitted entirely in 1 cassette [id number];..;KALYANI;.;405;[id number] SAW 12/15/2021 Microscopic exam: *+* MODIFIED REPORT [...] report in rendering the final pathologic diagnosis. [address] [address] CPT: 01668 /emely/ NIURKA Yeung MD Signed Jan 03, 2022@10:28 Performing Laboratory: Surgical Pathology Report Performed By: [facility] [CLIA# [id number]] [address] [place] [address] $FTR - - - - - [...] - - - - - LUCAS MEEK Lei STANDARD FORM 515 ID:[id number] SEX:M :1950 AGE: 71 LOC: SDM END PCP: Isatu Todd /emely/ NIURKA MILLER Staff Signed: 01/03/2022 10:28 Dec 21, 2021 11:46 AM LR SURGICAL PATHOLOGY REPORT: STEFANY MILLER [facility] LOCAL TITLE: LR SURGICAL PATHOLOGY REPORT [facility] STANDARD TITLE: PATHOLOGY REPORT DATE OF NOTE: DEC 21, 2021@11:46:59 ENTRY DATE: DEC 21, 2021@11:46:59 AUTHOR: NIURKA MILLER EXP COSIGNER: URGENCY: STATUS: COMPLETED $APHDR Reporting Lab: [facility] [CLIA# [id number]] [address] [place] [address] - - - - - - [...] automatically d ocumented from SURGERY package case #[id number] Field (#32) PRINCIPAL PRE-OP DIAGNOSIS, (#.72) OTHER [...] ocumented from SURGERY package case #[id number] Field (#34) PRINCIPAL POST-OP DIAG, (#.74) OTHER [...] Label: Lucas Meek Paperwork: Lucas Meek Cassette: [id number];..;KALYANI;.;405;[id number] Specimen is labeled: ES bx Received in formalin are several pieces of pale boyd and brown tissue, 1.2 x 0.7 cm in aggregate. Submitted entirely in 1 cassette [id number];..;KALYANI;.;405;[id number] SAW 12/15/2021 Microscopic exam: DIAGNOSIS: A. 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 Kendell long. TIARA Coombs was notified on 12/21/21. The attending pathologist who signature mansoor ears on this report has reviewed all diagnostic slides and has edited t he gross and/or microscopic portion of this report in rendering the final pathologic diagnosis. [address] [address] CPT: 78446 /emely/ NIURKA Yeung MD Signed Dec 21, 2021@11:46 Performing Laboratory: Surgical Pathology Report Performed By: [facility] [CLIA# [id number]] [address] [place] [address] $FTR - - - - - [...] - - LUCAS MEEK STANDARD FORM 515 ID:[id number] SEX:M :1950 AGE: 71 LOC: [facility] END PCP: Isatu Todd /emely/ NIURKA Yeung MD Signed: 12/21/2021 11:46 Dec 06, 2021 03:30 PM LR MICROBIOLOGY REPORT: [facility] Reporting Lab: [facility] [CLIA# [id number]] [address] [place] [address] Accession [UID]: [id number] [[id number]] Receiv ed: Dec 06, 2021@16:14 Collection sample: BLOOD CUL T BOTTLE(NIRMAL/AERO)Collection date: Dec 06, 2021 15:30 Site/Specimen: BLOOD Provider: JELANI SÁNCHEZ Comment on specimen: LAC Test(s) ordered: BLOOD CULTURE ANAEROBI C....... completed: Dec 12, 2021 06:18 * BACTERIOLOGY FINAL REPORT => Dec 12, 2021 06:1 8 TECH CODE: [id number] Bacteriology Remark(s): NO GROWTH IN 5 DAYS =--=--=--=--=--=--=--=--=--=--=--=--=--= --=--=--=--=--=--=--=--=--=--=--=--=-- Performing Laboratory: Bacteriology Report Performed By: [facility] [CLIA# [id number]] [address] [place] [address] Dec 06, 2021 03:30 PM LR MICROBIOLOGY REPORT: [facility] Reporting Lab: [facility] [CLIA# [id number]] [address] [place] [address] Accession [UID]: [id number] [[id number]] Receiv ed: Dec 06, 2021@16:14 Collection sample: BLOOD CUL T BOTTLE(NIRMAL/AERO)Collection date: Dec 06, 2021 15:30 Site/Specimen: BLOOD Provider: JELANI SÁNCHEZ Comment on specimen: LAC Test(s) ordered: BLOOD CULTURE AEROBIC. ........ completed: Dec 12, 2021 06:17 * BACTERIOLOGY FINAL REPORT => Dec 12, 2021 06:1 7 TECH CODE: [id number] Bacteriology Remark(s): NO GROWTH IN 5 DAYS =--=--=--=--=--=--=--=--=--=--=--=--=--= --=--=--=--=--=--=--=--=--=--=--=--=-- Performing Laboratory: Bacteriology Report Performed By: [facility] [CLIA# [id number]] [address] [place] [address]
--- OUTSIDE RECORDS SUMMARY | 2022-01-19 08:17 | XMS_ITS ---
DAILY HOSPITALIZATION DATA [facility] Encounter Summary Created on:December 07, 2021 Patient:LUCAS MEEK Sex:Male :1950 Author Organization [facility] Address [address] [place] [id number] Support Name Relationship Address Phone YUSRA MEEK Unavailable [address] [place] [address] YUSRA MEEK Unavailable [address] [place] [facility] [place] [address] CLAY MOSLEY Unavailable Unavailable SJ SANTACRUZ Unavailable [...] MEDICARE MEDICARE PART Jun 18, PART A [id number] DO KALYANI PATIENT (WNR) (M) A 2016 13A 1 [place]AS MEDICARE MEDICARE PART Jun 18, PART B [id number] DO KALYANI PATIENT (WNR) (M) B 2016 13A 1 [place] MEDICARE MEDICARE PART Jun 18, PART A [id number] KALYANIDO PATIENT (WNR) (M) A 2017 VH81 2 [place] MEDICARE MEDICARE PART Jun 18, PART B [id number] DO KALYANI PATIENT (WNR) (M) B 2017 VH81 2 [place] UNITED MEDICARE MCR(Jun 18 [id number] Luz MEEK PATIENT HEALTHCARE ADVANTAGE NR) 2021 37 0 [facility] (WNR) Selected Encounter This section includes the information on record at NH for the Encounter. Date/Time Encounter Type Encounter Description Reason Provider Source Dec 07, 2021 02:26 Inpatient Visit DAILY HOSPITALIZATION DATA AM [facility] Encounter Template Text not used by NH [...] AM AMBULATORY - N[place] [facility] Jan 06, 2022 02:00 PM [place] [facility] Jan 10, 2022 11:30 AM [facility]ATORY - MEDICINE [facility] Jan 24, 2022 08:00 [place] [facility] Feb 21, 2022 10:00 AM [place] [facility] Mar 21, 2022 10:30 AM [facility]BULATORY - MEDICINE [facility] Active, [...] The data comes from all [facility] treatment [facility]. Test Date/Time Test Type Test Details Facility Name October 31, 2021 07:37 AM Consult Order COMMUNITY CARE-EGD [facility] Cons Garbage Person[facility] Choice November 15, 2021 10:37 AM Consult Order [facility] CARE-PODIATRY Cons Garbage Person's Choice Dec 06, 2021 12:52 PM Pharmacy [...] PATHOLOGY [place] OUTPATIENT Cons [facility] Garbage Person[facility] Choice Jan 15, 2022 10:08 PM Consult Order [facility] CARE-PALLIATIVE CARE Cons Garbage Person's Choice Lab Results: +/- 30 days of [...] Reference Range Comment Dec 15, 2021 [place] P4 GLU,BUN,CREAT,LYTES,CA Speci men Type: PLASMA 06:43 AM [facility] Comment: Tests performed on ABSMaterials (405) SN:[id number] Ordering Provid er: ISATU TODD Report Released Date/Time: Dec 11, 2021 07:42 AM Reporting Lab: [facility] T [facility] [address] [facility] [address] Performing Lab: [facility] [address] [facility] [address] UREA NITROGEN 9 7-25 SODIUM 137 135-145 POTASSIUM 3.8 3.5-5.0 CHLORIDE 105 100-110 CARBON DIOXIDE 26 20-30 ANION GAP 6 4-16 GLUCOSE 102 H 65-100 CREATININE 0.64 0.5-1.5 CALCIUM 8.1 L 8.5-10.5 eGFR(CKD-EPI 2020) >90.0 >60 Dec 15, 2021 06:43 AM [facility] CBC PROFILE Sp ecimen Type: BLOOD No comment enter ed. Ordering Provid er: ISATU TODD Report Released Date/Time: Dec 10, 2021 07:22 AM Reporting Lab: [facility] [address] [facility] [address] Performing Lab: [facility] [address] [facility] [address] WBC 5.7 4.5-11.0 RBC 4.22 L 4.23-5.66 [...] ABSOLUTE NRBC 0.00 0-0 Dec 14, 2021 [facility] CYTOGENETIC Specimen Type: ESOPHAGUS 02:59 PM VA[facility] FISH([facility]) Comment: ~For T est: CYTOGENETIC FISH([facility]) ~FISH HER 2 NUE, FFPE See full report in [employer] Image display viewer/tab#LAB-Reference Ordering Provid er: NIURKA MILLER Report Released Date/Time: Dec 21, 2021 12:11 PM Reporting Lab: [facility] [address] [facility] [address] Performing Lab: [facility] CYTOGENETIC FISH([facility]) comment Dec 14, 2021 [facility] P4 GLU,BUN,CREAT,LYTES,CA Speci men Type: PLASMA 06:27 AM [facility] Comment: Tests performed on ABSMaterials (405) SN:[id number] Ordering Provid er: ISATU TODD Report Released Date/Time: Dec 11, 2021 07:42 AM Reporting Lab: [facility] [address] [facility] [address] Performing Lab: [facility] [address] [facility] [address] UREA NITROGEN 10 7-25 SODIUM 137 135-145 POTASSIUM 4.0 3.5-5.0 CHLORIDE 104 100-110 CARBON DIOXIDE 25 20-30 ANION GAP 8 4-16 GLUCOSE 99 65-100 CREATININE 0.67 0.5-1.5 CALCIUM 8.2 L 8.5-10.5 eGFR(CKD-EPI 2020) >90.0 >60 Dec 14, 2021 06:27 AM [facility] Sp ecimen Type: BLOOD No comment enter ed. Ordering Provid er: ISATU TODD Report Released Date/Time: Dec 10, 2021 07:22 AM Reporting Lab: [facility] [address] [facility] [address] Performing Lab: [facility] [address] [facility] [address] WBC 6.0 4.5-11.0 RBC 4.29 4.23-5.66 HGB [...] 0.00 0-0 Dec 13, 2021 06:34 AM [facility] CBC PROFILE Sp ecimen Type: BLOOD No comment enter ed. Ordering Provid er: ISATU TODD Report Released Date/Time: Dec 10, 2021 07:22 AM Reporting Lab: [facility] [address] [facility] [address] Performing Lab: [facility] [address] [facility] [address] WBC 5.6 4.5-11.0 RBC 4.28 4.23-5.66 HGB [...] ABSOLUTE NRBC 0.00 0-0 Dec 13, 2021 [facility] P4 GLU,BUN,CREAT,LYTES,CA Speci men Type: PLASMA 06:34 AM [facility] Comment: Tests performed on ABSMaterials (405) SN:[id number] Ordering Provid er: ISATU TODD Report Released Date/Time: Dec 11, 2021 07:42 AM Reporting Lab: [facility] [address] [facility] [address] Performing Lab: [facility] [address] [facility] [address] UREA NITROGEN 12 7-25 SODIUM 136 135-145 POTASSIUM 3.9 3.5-5.0 CHLORIDE 105 100-110 CARBON DIOXIDE 24 20-30 ANION GAP 7 4-16 GLUCOSE 102 H 65-100 CREATININE 0.66 0.5-1.5 CALCIUM 8.3 L 8.5-10.5 eGFR(CKD-EPI 2020) >90.0 >60 Dec 12, 2021 [facility] P4 GLU,BUN,CREAT,LYTES,CA Speci men Type: PLASMA 06:21 AM [facility] Comment: Tests performed on ABSMaterials (405) SN:[id number] Ordering Provid er: ISATU TODD Report Released Date/Time: Dec 11, 2021 07:42 AM Reporting Lab: [facility] [address] [facility] [address] Performing Lab: [facility] [address] [facility] [address] UREA NITROGEN 11 7-25 SODIUM 139 135-145 POTASSIUM 4.1 3.5-5.0 CHLORIDE 107 100-110 CARBON DIOXIDE 24 20-30 ANION GAP 8 4-16 GLUCOSE 110 H 65-100 CREATININE 0.70 0.5-1.5 CALCIUM 8.3 L 8.5-10.5 eGFR(CKD-EPI 2020) >90.0 >60 Dec 12, 2021 06:21 AM [facility] CBC PROFILE Sp ecimen Type: BLOOD No comment enter ed. Ordering Provid er: ISATU TODD Report Released Date/Time: Dec 10, 2021 07:22 AM Reporting Lab: [facility] [address] [facility] [address] Performing Lab: [facility] [address] [facility] [address] WBC 5.5 4.5-11.0 RBC 4.37 4.23-5.66 HGB [...] 0.00 0-0 Dec 12, 2021 06:00 AM comScoreT [facility] MAGNESIUM Sp ecimen Type: PLASMA Comment: Testin g Performed on ABSMaterials (405) SN:[id number] Ordering Provid er: ISATU TODD Report Released Date/Time: Dec 12, 2021 08:24 AM Reporting Lab: [place] [facility] [address] [facility] [address] Performing Lab: [facility] [place] [facility] readfy[facility] [address] [facility] [address] MAGNESIUM 1.8 1.6-2.6 Dec 12, 2021 06:00 AM comScoreT readfyMROC PHOSPHORUS Sp ecimen Type: PLASMA Comment: Testin g Performed on ABSMaterials (405) SN:[id number] Ordering Provid er: ISATU TODD Report Released Date/Time: Dec 12, 2021 08:24 AM Reporting Lab: [facility] [address] [facility] [address] Performing Lab: [facility] [address] [facility] [address] PHOSPHORUS 3.1 2.5-5.0 Dec 11, 2021 06:15 AM [facility] [place] RegaaloT readfyMROC ELECTROLYTES Sp ecimen Type: PLASMA Comment: Tests performed on ABSMaterials (405) SN:[id number] Ordering Provid er: ISATU TODD Report Released Date/Time: Dec 10, 2021 07:22 AM Reporting Lab: [facility] [address] [facility] [address] Performing Lab: [facility] [address] [facility] [address] SODIUM 137 135-145 POTASSIUM 4.3 3.5-5.0 CHLORIDE 108 100-110 CARBON DIOXIDE 20 20-30 ANION GAP 9 4-16 Dec 11, 2021 06:15 AM [place] [facility] CBC PROFILE Sp ecimen Type: BLOOD Comment: Result s checked Ordering Provid er: ISATU TODD Report Released Date/Time: Dec 10, 2021 07:22 AM Reporting Lab: [facility] [address] [facility] [address] Performing Lab: [facility] [place] OMEGAT [facility] [address] [facility] [address] WBC 5.8 4.5-11.0 RBC 4.37 4.23-5.66 HGB [...] 0.00 0-0 Dec 11, 2021 06:00 AM [facility] PHOSPHORUS Sp ecimen Type: PLASMA Comment: Tests performed on ABSMaterials (065) SN:[id number] Results checked Ordering Provid er: ISATU TODD Report Released Date/Time: Dec 11, 2021 07:44 AM Reporting Lab: [facility] [place] [facility] [address] [facility] [address] Performing Lab: [facility] [address] [facility] [address] PHOSPHORUS 3.0 2.5-5.0 Dec 10, 2021 08:05 AM [place] [facility] MAGNESIUM Sp ecimen Type: PLASMA Comment: [place] [id number] on Dec 10, 2021@08:31 Tests performed on ABSMaterials (405) SN:[id number] Ordering Provid er: ISATU TODD Report Released Date/Time: Dec 10, 2021 07:22 AM Reporting Lab: [place] [facility] [address] [facility] [place] [address] Performing Lab: [place] [facility] [address] [facility] [place] [address] MAGNESIUM 1.7 1.6-2.6 Dec 10, 2021 08:05 AM [place] [facility] PHOSPHORUS Sp ecimen Type: PLASMA Comment: [place] [id number] on Dec 10, 2021@08:31 Tests performed on ABSMaterials (405) SN:[id number] Ordering Provid er: ISATU TODD Report Released Date/Time: Dec 10, 2021 07:22 AM Reporting Lab: [place] [facility] [address] [facility] [place] [address] Performing Lab: [place] [facility] [address] [facility] [place] [address] PHOSPHORUS 1.8 L 2.5-5.0 Dec 10, 2021 08:05 AM [place] UREA NITROGEN Specimen Type: PLASMA [facility] Comment: [place] [id number] on Dec 10, 2021@08:31 Tests performed on ABSMaterials (405) SN:[id number] Ordering Provid er: ISATU TODD Report Released Date/Time: Dec 10, 2021 07:22 AM Reporting Lab: [place] [facility] [address] [facility] [place] [address] Performing Lab: [place] [facility] [address] [facility] [place] [address] UREA NITROGEN 8 7-25 Dec 10, 2021 08:05 AM [place] [facility] GLUCOSE Sp ecimen Type: PLASMA Comment: [place] [id number] on Dec 10, 2021@08:31 Tests performed on ABSMaterials (405) SN:[id number] Ordering Provid er: ISATU TODD Report Released Date/Time: Dec 10, 2021 07:22 AM Reporting Lab: [place] [facility] [address] [facility] [address] Performing Lab: [place] [facility] [address] [facility] [address] GLUCOSE 144 H 65-100 Dec 10, 2021 08:05 AM [place] [facility] CALCIUM Sp ecimen Type: PLASMA Comment: [place] [id number] on Dec 10, 2021@08:31 Tests performed on ABSMaterials (405) SN:[id number] Ordering Provid er: ISATU TODD Report Released Date/Time: Dec 10, 2021 07:22 AM Reporting Lab: [place] [facility] [address] [facility] [address] Performing Lab: [place] [facility] [address] [facility] [address] CALCIUM 8.3 L 8.5-10.5 Dec 10, 2021 08:05 AM [place] [facility] ELECTROLYTES Sp ecimen Type: PLASMA Comment: [place] [id number] on Dec 10, 2021@08:31 Tests performed on ABSMaterials (405) SN:[id number] Ordering Provid er: ISATU TODD Report Released Date/Time: Dec 10, 2021 07:22 AM Reporting Lab: [place] [facility] [address] [facility] [address] Performing Lab: [place] [facility] [address] [facility] [address] SODIUM 139 135-145 POTASSIUM 3.7 3.5-5.0 CHLORIDE 107 100-110 CARBON DIOXIDE 24 20-30 ANION GAP 8 4-16 Dec 10, 2021 08:05 AM [place] [facility] CBC PROFILE Sp ecimen Type: BLOOD No comment enter ed. Ordering Provid er: ISATU TODD Report Released Date/Time: Dec 10, 2021 07:22 AM Reporting Lab: [place] [facility] [address] [facility] [address] Performing Lab: [place] [facility] [address] [facility] [address] WBC 7.0 4.5-11.0 RBC 4.54 4.23-5.66 HGB [...] PLASMA AM [facility] PANEL [place]: [place] [id number] on Dec 10, 2021@08:31 Tests performed on ABSMaterials (405) SN:[id number] Ordering Provid er: ISATU TODD Report Released Date/Time: Dec 10, 2021 07:22 AM Reporting Lab: [facility] [address] [facility] [address] Performing Lab: [facility] [address] [facility] [address] CREATININE 0.78 0.5-1.5 eGFR(CKD-EPI 2020) >90.0 >60 Dec 09, 2021 06:46 AM [place] [facility] MAGNESIUM Sp ecimen Type: PLASMA Comment: Tests performed on ABSMaterials (405) SN:[id number] Ordering Provid er: ISATU TODD Report Released Date/Time: Dec 08, 2021 10:23 AM Reporting Lab: [place] [facility] [address] [facility] [address] Performing Lab: [place] [facility] [address] [facility] [address] MAGNESIUM 1.6 1.6-2.6 Dec 09, 2021 [facility] P4 GLU,BUN,CREAT,LYTES,CA Speci men Type: PLASMA 06:46 AM [facility] Comment: Tests performed on ABSMaterials (405) SN:[id number] Ordering Provid er: ISATU TODD Report Released Date/Time: Dec 08, 2021 05:00 PM Reporting Lab: [facility] [address] [facility] [address] Performing Lab: [facility] [address] [facility] [address] UREA NITROGEN 6 L 7-25 SODIUM 134 L 135-145 POTASSIUM 3.7 3.5-5.0 CHLORIDE 103 100-110 CARBON DIOXIDE 23 20-30 ANION GAP 8 4-16 GLUCOSE 112 H 65-100 CREATININE 0.70 0.5-1.5 CALCIUM 8.1 L 8.5-10.5 eGFR(CKD-EPI 2020) >90.0 >60 Dec 09, 2021 06:46 AM [facility] CBC PROFILE Sp ecimen Type: BLOOD No comment enter ed. Ordering Provid er: ISATU TODD Report Released Date/Time: Dec 08, 2021 05:00 PM Reporting Lab: [facility] [address] [facility] [address] Performing Lab: [facility] [address] [facility] [address] WBC 7.1 4.5-11.0 RBC 4.40 4.23-5.66 HGB [...] 0-0 Dec 08, 2021 06:39 AM [facility] MAGNESIUM Sp ecimen Type: PLASMA Comment: Testin g Performed on ABSMaterials (405) SN:[id number] Ordering Provid er: ISATU TODD Report Released Date/Time: Dec 07, 2021 10:32 AM Reporting Lab: [facility] [address] [facility] [address] Performing Lab: [facility] [address] [facility] [address] MAGNESIUM 1.5 L 1.6-2.6 Dec 08, 2021 06:39 AM [facility] CBC PROFILE Sp ecimen Type: BLOOD No comment enter ed. Ordering Provid er: ISATU TODD Report Released Date/Time: Dec 07, 2021 10:32 AM Reporting Lab: [facility] [address] [facility] [address] Performing Lab: [facility] [address] [facility] [address] WBC 8.4 4.5-11.0 RBC 4.75 4.23-5.66 HGB [...] ABSOLUTE NRBC 0.00 0-0 Dec 08, 2021 [facility] P4 GLU,BUN,CREAT,LYTES,CA Speci men Type: PLASMA 06:39 AM [facility] Comment: Testin g Performed on Pham Mashape (405) SN:[id number] Ordering Provid er: ISATU TODD Report Released Date/Time: Dec 07, 2021 10:32 AM Reporting Lab: [facility] [address] [facility] [address] Performing Lab: [facility] [address] [facility] [address] UREA NITROGEN 6 L 7-25 SODIUM 136 135-145 POTASSIUM 3.3 L 3.5-5.0 CHLORIDE 104 100-110 CARBON DIOXIDE 22 20-30 ANION GAP 10 4-16 GLUCOSE 133 H 65-100 CREATININE 0.76 0.5-1.5 CALCIUM 8.4 L 8.5-10.5 eGFR(CKD-EPI 2020) >90.0 >60 Dec 07, 2021 [facility] P4 GLU,BUN,CREAT,LYTES,CA Speci men Type: PLASMA 06:42 AM [facility] Comment: Tests performed on Pham Mashape (405) SN:[id number] Ordering Provid er: PORFIRIO WALTERS Report Released Date/Time: Dec 06, 2021 06:57 PM Reporting Lab: [facility] [facility] [address] [facility] [address] Performing Lab: [facility] [address] [facility] [address] UREA NITROGEN 9 7-25 SODIUM 135 135-145 POTASSIUM 3.5 3.5-5.0 CHLORIDE 103 100-110 CARBON DIOXIDE 22 20-30 ANION GAP 10 4-16 GLUCOSE 92 65-100 CREATININE 0.73 0.5-1.5 CALCIUM 8.0 L 8.5-10.5 eGFR(CKD-EPI 2020) >90.0 >60 Dec 07, 2021 06:42 [place] LIVER PROFILE Specimen Typ e: PLASMA AM VAOC Comment: Tests performed on Flaskon Chart Clerk (405) SN:[id number] Ordering Provid er: PORFIRIO WALTERS Report Released Date/Time: Dec 06, 2021 06:57 PM Reporting Lab: [facility] [address] [facility] [address] Performing Lab: [facility] [address] [facility] [address] PROTEIN, TOTAL 5.7 L 6.0-8.5 ALBUMIN 2.4 L 3.2-5.0 BILIRUBIN, TOTAL 0.4 0.2-1.2 ALKALINE PHOSPHATASE 109 40-150 ALT(SGPT) 10 7-52 AST(SGOT) 15 5-34 FIB-4 SCORE 1.92 <2.67 Dec 07, 2021 06:42 AM [facility] CBC PROFILE Specimen Type: BLOOD [facility] No comment enter ed. Ordering Provid er: PORFIRIO WALTERS Report Released Date/Time: Dec 06, 2021 06:57 PM Reporting Lab: [facility] [address] [facility] [address] Performing Lab: [facility] [address] [facility] [address] WBC 5.7 4.5-11.0 RBC 4.15 L 4.23-5.66 [...] VAMROC %) AUTOMATED Comment: Tests performed on ABSMaterials (405) SN:[id number] Ordering Provid er: ISATU TODD Report Released Date/Time: Dec 07, 2021 10:28 AM Reporting Lab: [place] [facility] [address] [facility] [address] Performing Lab: [place] [facility] [address] [facility] [address] RETICULOCYTES (%) AUTOMATED 1.23 0. 6-2.0 RETICULOCYTES (ABS) AUTOMATED 0.052 0.030-0.090 Dec 06, 2021 09:45 [place] MRSA SURVL NARES Specimen Ty pe: NARES PM [facility] DNA No comment enter ed. Ordering Provid er: ALVARO VARGHESE Report Released Date/Time: Dec 07, 2021 02:20 AM Reporting Lab: [place] [facility] [address] [facility] [address] Performing Lab: [place] [facility] [address] [facility] [address] MRSA SURVL NARES DNA NEGATIVE NEGATIVE Dec 06, 2021 06:00 [place] URINALYSIS W/REFLEX TO Speci men Type: URINE PM [facility] CULTURE No comment enter ed. Ordering Provid er: JELANI SÁNCHEZ Report Released Date/Time: Dec 06, 2021 11:57 AM Reporting Lab: [place] [facility] [address] [facility] [address] Performing Lab: [place] [facility] [address] [facility] [address] URINE COLOR Arlin YELLOW SPECIFIC GRAVITY 1.029 [...] 21, RIVER VARIANT Comment: https://www.cdc.gov/coronavirus/2019-ncov/cases-updates/variant- surveillance/variant-info.html The WAVE (Wireless Advanced Vehicle Electrification) SARS CoV 2 [employer] Software Research Assay-GX is a next-generation sequencing (NGS) assa 2021 [facility] SEQUENCING y that determine s the complete genome sequence of the SARS-CoV-2 virus. The assay contains variant-tolerant primers to broaden and improve the coverage for variant detection and increase the sensitivity 12:00 [facility] PNL(WH) of the panel to enable detection from lower viral titer samples. The assay is run on the [email or web address] Sequencer, which performs automated library preparation, sequencing, analysis, and reporting. PM The sequence an alysis includes determination of viral phylogenetic lineage by comparison to the reference strain Wuhan-Hu-1, GenBank: [id number]. Sequence determination may not be possible owing [...] and its performance characteristics determined by the [facility] Molecular Diagnostics Laboratory, which is certified under the Clinical Laboratory Improveme nt Amendments (C MARCO) as qualified to perform high complexity clinical laboratory testing. This test is validated for clinical use at [facility] and should not be regarded [...] 01:13 PM Reporting Lab: [facility] [address] [facility] [address] Performing Lab: [facility] [address] [facility] [address] SARS-CoV-2 CLADE() 22C (OMICRON) SARS-CoV-2 LINEAGE() BA.2.12.1 Dec 06, 2021 12:00 [facility]-19 AG SCREEN Specimen Type: NASAL CAVITY PM [facility] PANEL BINAX(405) Comment: Testi ng Performed By: Mike Briscoe Ordering Provid er: JELANI SÁNCHEZ Report Released Date/Time: Dec 08, 2021 08:23 AM Reporting Lab: [facility] [address] [facility] [address] Performing Lab: [facility] [address] [facility] [address] COVID-19 AG SCRN(wrj BINAX) POSITIVE HH NE G Dec 06, 2021 [facility] P4 GLU,BUN,CREAT,LYTES,CA Speci men Type: PLASMA 12:00 PM [facility] Comment: Testin g Performed on Pham Chart Clerk (405) [id number] Ordering Provid er: JELANI SÁNCHEZ Report Released Date/Time: Dec 06, 2021 11:57 AM Reporting Lab: [facility] [address] [facility] [address] Performing Lab: [facility] [address] [facility] [address] UREA NITROGEN 13 7-25 SODIUM 138 135-145 POTASSIUM 3.8 3.5-5.0 CHLORIDE 103 100-110 CARBON DIOXIDE 23 20-30 ANION GAP 12 4-16 GLUCOSE 105 H 65-100 CREATININE 0.90 0.5-1.5 CALCIUM 8.7 8.5-10.5 eGFR(CKD-EPI 2020) >90.0 >60 Dec 06, 2021 12:00 PM [facility] TROPONIN II Sp ecimen Type: PLASMA Comment: Tests performed on Pham Chart Clerk (405) [id number] Ordering Provid er: JELANI SÁNCHEZ Report Released Date/Time: Dec 06, 2021 11:57 AM Reporting Lab: [facility] [address] [facility] [address] Performing Lab: [facility] [address] [facility] [address] TROPONIN II 0.03 0.00-0.29 Dec 06, 2021 12:00 PM [facility] LIVER PROFILE Sp ecimen Type: PLASMA Comment: Testin g Performed on Pham Chart Clerk (405) SN:[id number] Ordering Provid er: JELANI SÁNCHEZ Report Released Date/Time: Dec 06, 2021 11:57 AM Reporting Lab: [facility] [address] [facility] [address] Performing Lab: [facility] [address] [facility] [address] PROTEIN, TOTAL 6.6 6.0-8.5 ALBUMIN 2.8 L 3.2-5.0 BILIRUBIN, TOTAL 0.6 0.2-1.2 ALKALINE PHOSPHATASE 134 40-150 ALT(SGPT) 13 7-52 AST(SGOT) 18 5-34 FIB-4 SCORE 1.94 <2.67 Dec 06, 2021 [facility] COVID-19+FLU/RSV DIAGNOSTIC Spe cimen Type: NASOPHARYNX 12:00 PM [facility] PANEL(405) Comment: Tests performed on Meine Spielzeugkiste Genexpert (405) Critical results called to and read back by: ALESHIA WILKINSON RN 12/06/21 @ 1312 Ordering Provid er: JELANI SÁNCHEZ Report Released Date/Time: Dec 06, 2021 11:57 AM Reporting Lab: [facility] [address] [facility] [address] Performing Lab: [facility] [address] [facility] [address] FLU A(PCR) NEGATIVE NEGATIVE FLU B(PCR) NEGATIVE NEGATIVE RSV(PCR) NEGATIVE NEGATIVE COVID-19(EEH-vio-[id number]) DETECTED HH NO T DETECTED Dec 06, 2021 12:00 PM [facility] BNP(P) Sp ecimen Type: PLASMA Comment: Tests performed on Pham Chart Clerk (405) [id number] Ordering Provid er: JELANI SÁNCHEZ Report Released Date/Time: Dec 06, 2021 11:57 AM Reporting Lab: [facility] [address] [facility] [address] Performing Lab: [facility] [address] [facility] [address] BNP(P) 224.8 H 10-100 Dec 06, 2021 12:00 PM [facility] CBC PROFILE Sp ecimen Type: BLOOD No comment enter ed. Ordering Provid er: JELANI SÁNCHEZ Report Released Date/Time: Dec 06, 2021 11:57 AM Reporting Lab: [facility] [address] [facility] [address] Performing Lab: [facility] [address] [facility] [address] WBC 7.2 4.5-11.0 RBC 4.86 4.23-5.66 HGB [...] WHITE 2021 11:00 /min mm[Hg] RIVER PM [facility] Dec 07, 95 144/57 18 /min 98 % 0 WHITE 2021 03:08 /min mm[Hg] RIVER PM T [facility] Dec 07, 96.3 F WHITE 2021 06:07 RIVER AM [facility] Dec 07, 88 141/85 16 /min 95 % 0 WHITE 2021 06:03 /min mm[Hg] RIVER AM [facility] Dec 07, 6 WHITE 2021 12:47 RIVER AM [facility] Social History: Smoking Status (Most current) and [...] took place. Date/Time Smoking Status/Tobacco Use Comment [facility] Apr 01, 2020 01:16 PM QUIT [...] USE IN PAST YEAR [facility] May 01, 2016 03:11 PM QUIT TOBACCO USE IN PAST YEAR [facility] May 01, 2016 11:19 AM QUIT TOBACCO USE IN PAST YEAR [facility] Mar 16, 2016 12:50 PM V1-PT DECLINES REF TO TOBACCO [facility] CESS PRGM Mar 16, 2016 12:50 PM V1-PT THINKING ABOUT QUIT [facility] TOBACCO USE Aug 12, 2015 08:48 AM [...] W/WO CONTRAST: MARYELLEN LONG LUCAS LARES N [id number] -1950 [facility] Exm Date: DEC 13, 2021@12:57 Req Phys: ISATU TODD Loc: OP Unknown/0 12-15-2021@13:20 Img Loc: MRI IMAGING (OOS) Service: ZZGENERAL MEDICINE (Case [id number] COMPLETE) MRI ABDOMEN W/WO CONTRAST (M RI Detailed) CPT:99948 Reason for Study: further characterization of a [...] new lyphadenopathy REQUESTING MD: Isatu Todd PAGER: [phone] PHONE: [phone] Weight: 232.2 lb [105.32 kg] (12/12/2021 05:00) [...] patient will need to arrange for a front loader residential driver to take him/her home after the [...] 15, 2021 Date Verified: DEC 15, 2021 [place] Inspector E-Sig:/ES/MARYELLEN LONG Report: MRI ABDOMEN W/WO CONTRAST [...] MALIGNANCY Primary Interpreting Staff: Staff AMELIA THOMAS ([place] Inspector) / Dec 10, 2021 09:[address] ABDOMEN & PELVIS: [facility]AL[facility]AN[facility] N [id number] -1950 [facility] Exm Date: DEC 10, 2021@09:30 Req Phys: ISATU TODD Loc: 1S MED/12-10@10:57 Img Loc: CT SCAN (OOS) Service: [facility] MEDICINE (Case [id number] COMPLETE) CT ABD & PELVIS WITHOUT CONT RAST (CT Detailed) CPT:41563 Reason for Study: 71 yo male with [...] INDEX - NO HEIGHTS FOUND Pager number: [phone] STAT orders MUST be call ed to RADIOLOGY [phone] to speak to the appropriate gyroscope technician. Report Status: Verified Date Reported: DEC 10, 2021 Date Verified: DEC 10, 2021 [place] Inspector E-Sig: Report: EXAM: CT abdomen and pelvis [...] ph nodes. READING PHYSICIAN: Ramone Munoz D.O. -[phone] 12/10/2021 10:55 EDT [facility] National Teleradiology Program [phone] (For Medical Practitioner Use Only ) [address] [facility] [facility] [address] [place] [address] Attention Patients / Veterans: If you have ques tions or concerns about these test results, please contact your o rdering provider or primary care team. Primary Diagnostic Code: SIGNIFICANT ABNORMALIT Y, ATTN NEEDED Primary Interpreting Staff: RADIOLOGY,OUTSIDE SERVICE, Staff Physician / Dec 09, 2021 07:34 AM BASW (MODIFIED): JESSIE CHENEY [facility] LUCAS MEEK N [id number] -1950 M [facility] Exm Date: DEC 09, 2021@07:34 Req Phys: ISATU TODD Loc: 1S /12-09@11:26 Img Loc: XRAY (OOS) Service: [facility] MEDICINE (Case [id number] COMPLETE) BASW (MODIFIED) (RAD Detaile d) CPT:34026 Contrast Media : Barium Reason for Study: dysphagia ?esophageal spasm Clinical History: Report Status: Verified Date Reported: DEC 09, 2021 Date Verified: DEC 09, 2021 [place] Inspector E-Sig:/ES/JESSIE CHENEY Report: BASPrincess (MODIFIED) , 12/09/2021 [...] REQUIRED Primary Interpreting Staff: JESSIE CHENEY, RADIOLOGIST ([place] Inspector) /TLC Dec 06, 2021 12:[address] CHEST (INCLUDES ADRENALS): JESSIE CHENEY [facility] LUCAS MEEK N [id number] -1950 M [facility] Exm Date: DEC 06, 2021@12:59 Req Phys: GONZALOJELANI ORLANDO Loc: [facility] ED DAYS M 1RD (Req'g Loc) Img Loc: CT SCAN (OOS) Service: Unknown (Case [id number] COMPLETE) CT THORAX W/O CONT (CT Detai led) CPT:87471 Reason for Study: Opacification right chest Clinical History: No contrast allergy BUN: 13 (12/06/21 12:00) CREATI: 0.90 (12/06/21 12:00) eGFR 05/16/21 09:43 52 L Weight: 232.6 lb [105.51 kg] (12/06/2021 11:40) BODY MASS INDEX - NO HEIGHTS FOUND Pager number: [phone] STAT orders MUST be called t o RADIOLOGY [phone] to speak to the appropriate gyroscope technician. Indications - Other: Opacification right chest, covid positive, lung cancer histo Report Status: Verified Date Reported: DEC 06, 2021 Date Verified: DEC 06, 2021 [place] Inspector E-Sig:/ES/JESSIE CHENEY Report: CT THORAX W/O CONT [...] REQUIRED Primary Interpreting Staff: JESSIE CHENEY, RADIOLOGIST ([place] Inspector) Primary Interpreting Resident: PRINCE CHAMPION, Resident /BR Dec 06, 2021 11:58 AM CHEST SINGLE VIEW: JESSIE CHENEY LUCAS MEEK Lei [id number] -1950 M [facility] Exm Date: DEC 06, 2021@11:58 Req Phys: JELANI SÁNCHEZ Pat Loc: [facility] ED DAYS M 1RD (Req'g Loc) Img Loc: XRAY (OOS) Service: Unknown (Case [id number] COMPLETE) CHEST SINGLE VIEW (RAD Detai led) CPT:94633 Proc Modifiers : PORTABLE EXAM Reason for Study: SOB, home covid test positive Clinical History: Report Status: Verified Date Reported: DEC 06, 2021 Date Verified: DEC 06, 2021 [place] Inspector E-Sig:/ES/JESSIE CHENEY Report: Exam type: Chest x-ray [...] REQUIRED Primary Interpreting Staff: JESSIE CHENEY, RADIOLOGIST ([place] Inspector) /TLC Pathology Reports: +/- 30 days of [...] COMPLETED $APHDR Reporting Lab: [facility] [CLIA# [id number]] [address] [place] [address] - - - - - - [...] automatically d ocumented from SURGERY package case #[id number] Field (#32) PRINCIPAL PRE-OP DIAGNOSIS, (#.72) OTHER [...] automatically d ocumented from SURGERY package case #[id number] Field (#34) PRINCIPAL POST-OP DIAG, (#.74) OTHER POSTOP DIAGS Esophageal cancer Surgeon/physician: MICHELLE CALERO Attending Surgeon: Kyle Sanez MD =-=-=-=-=-=-=-=-=-=-=-=-=-=- =-=-=-=-=-=-=-=-=-=-=-=-=-=-=-=-=-=-=-=-=-=-=-=-=-= - - - - [...] Label: Lucas Meek Paperwork: Lucas Meek Cassette: [id number];..;KALYANI;.;405;[phone] Specimen is labeled: ES bx Received in formalin are several pieces of pale boyd and brown tissue, 1.2 x 0.7 cm in aggregate. Submitted entirely in 1 cassette [id number];..;KALYANI;.;405;[id number] SAW 12/15/2021 Microscopic exam: *+* MODIFIED REPORT *+* (Last modified: JAN 03, 2022@09:30:20 typed by NIURKA WADDELL) DIAGNOSIS: A. 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 Kendell long. TIARA Coombs was notified on 12/21/21. Modified on 01/03/22 to include report from [facility] stating that tumor is NEGATIVE for her2/ matheus amplification. The attending pathologist who signature mansoor ears on this report has reviewed all diagnostic slides and has edited t he gross and/or microscopic portion of this report in rendering the final pathologic diagnosis. [address] [address] CPT: 67567 /emely/ NIURKA Yeung MD Signed Jan 03, 2022@10:28 Performing Laboratory: Surgical Pathology Report Performed By: [facility]TO[facility] [CLIA# [id number]] [address] [place] [address] $FTR - - - - - [...] - - LUCAS MEEK STANDARD FORM 515 ID:[id number] SEX:M :1950 AGE: 71 LOC: SDM END [...] COMPLETED $APHDR Reporting Lab: [facility] [CLIA# [id number]] [address] [place] [address] - - - - - - [...] automatically d ocumented from SURGERY package case #[id number] Field (#32) PRINCIPAL PRE-OP DIAGNOSIS, (#.72) OTHER [...] automatically d ocumented from SURGERY package case #[id number] Field (#34) PRINCIPAL POST-OP DIAG, (#.74) OTHER [...] Label: Lucas Meek Paperwork: Lucas Meek Cassette: [id number];..;KALYANI;.;405;[id number] Specimen is labeled: ES bx Received in formalin are several pieces of pale boyd and brown tissue, 1.2 x 0.7 cm in aggregate. Submitted entirely in 1 cassette [id number];..;KALYANI;.;405;[id number] SAW 12/15/2021 Microscopic exam: DIAGNOSIS: A. 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 Kendell long. TIARA Coombs was notified on 12/21/21. The attending pathologist who signature mansoor ears on this report has reviewed all diagnostic slides and has edited t he gross and/or microscopic portion of this report in rendering the final pathologic diagnosis. [address] [address] CPT: 36014 /emely/ NIURKA Yeung MD Signed Dec 21, 2021@11:46 Performing Laboratory: Surgical Pathology Report Performed By: [facility] [CLIA# [id number]] [address] [place] [address] $FTR - - - - - [...] - - LUCAS MEEK STANDARD FORM 515 ID:[id number] SEX:M :1950 AGE: 71 LOC: [facility] END PCP: Isatu Todd /charmaine Yeung MD Signed: 12/21/2021 11:46 Dec 06, 2021 03:30 PM LR MICROBIOLOGY REPORT: [facility] Reporting Lab: [facility] [CLIA# [id number]] [address] [place] [address] Accession [UID]: [id number] [[id number]] Receiv ed: Dec 06, 2021@16:14 Collection sample: BLOOD CUL T BOTTLE(NIRMAL/AERO)Collection date: Dec 06, 2021 15:30 Site/Specimen: BLOOD Provider: JELANI SÁNCHEZ Comment on specimen: LAC Test(s) ordered: BLOOD CULTURE ANAEROBI C....... completed: Dec 12, 2021 06:18 * BACTERIOLOGY FINAL REPORT => Dec 12, 2021 06:1 8 TECH CODE: 65105 Bacteriology Remark(s): NO GROWTH IN 5 DAYS =--=--=--=--=--=--=--=--=--=--=--=--=--= --=--=--=--=--=--=--=--=--=--=--=--=-- Performing Laboratory: Bacteriology Report Performed By: [facility] [CLIA# [id number]] [address] [place] [address] Dec 06, 2021 03:30 PM LR MICROBIOLOGY REPORT: [facility] Reporting Lab: [facility] [CLIA# [id number]] [address] [place] [address] Accession [UID]: [id number] [[id number]] Receiv ed: Dec 06, 2021@16:14 Collection sample: BLOOD CUL T BOTTLE(NIRMAL/AERO)Collection date: Dec 06, 2021 15:30 Site/Specimen: BLOOD Provider: JELANI SÁNCHEZ Comment on specimen: LAC Test(s) ordered: BLOOD CULTURE AEROBIC. ........ completed: Dec 12, 2021 06:17 * BACTERIOLOGY FINAL REPORT => Dec 12, 2021 06:1 7 TECH CODE: [id number] Bacteriology Remark(s): NO GROWTH IN 5 DAYS =--=--=--=--=--=--=--=--=--=--=--=--=--= --=--=--=--=--=--=--=--=--=--=--=--=-- Performing Laboratory: Bacteriology Report Performed By: [facility] [CLIA# [id number]] [address] [facility] [place] [address]
--- OUTSIDE RECORDS SUMMARY | 2022-01-19 08:17 | XMS_ITS ---
DAILY HOSPITALIZATION DATA [facility] DO[facility] Encounter Summary Created on:December 07, 2021 Patient:LUCAS MEEK Sex:Male :1950 Author Organization [facility] Address [address] [place] [id number] Support Name Relationship Address Phone YUSRA MEEK Unavailable [address] [place] [address] YUSRA MEEK Unavailable [address] [place] [address] CLAY MOSLEY Unavailable Unavailable SJ SANTACRUZ Unavailable [...] MEDICARE MEDICARE PART Jun 18, PART A [id number] DO KALYANI PATIENT (WNR) (M) A 2016 13A 1 U[place]AS MEDICARE MEDICARE PART Jun 18, PART B [id number] DO KALYANI PATIENT (WNR) (M) B 2016 13A 1 [place]AS MEDICARE MEDICARE PART Jun 18, PART A [id number] KALYANIDO PATIENT (WNR) (M) A 2017 VH81 2 [place]AS MEDICARE MEDICARE PART Jun 18, PART B [id number] DO KALYANI PATIENT (WNR) (M) B 2017 VH81 2 [place]AS UNITED MEDICARE MCR(Jun [id number] Luz MEEK PATIENT HEALTHCARE ADVANTAGE NR) 2021 37 0 [facility] (WNR) Selected Encounter This section includes the information on record at [place] for the Encounter. Date/Time Encounter Type Encounter Description Reason Provider Source Dec 07, 2021 12:30 Inpatient Visit DAILY HOSPITALIZATION DATA AM [facility] Encounter Template Text not used by [place] Plan of Treatment: Future Appointments (+ 6 [...] AM AMBUL[place]ORY - NONE [place] [facility] Jan 06, 2022 02:00 PM [place] [facility] Jan 10, 2022 11:30 AM [facility] Jan 24, 2022 08:00 [place] [facility] Feb 21, 2022 10:00 AM AMBUL[place]ORY [place] [facility] Mar 21, 2022 10:30 AM [facility] Active, Pending, and Scheduled [...] The data comes from all [place] treatment [facility]. Test Date/Time Test Type Test Details Facility Name October 31, 2021 07:37 AM Consult Order COMMUNITY CARE-EGD [facility] Cons Associate Financial Advisor's Choice November 15, 2021 10:37 AM Consult Order [facility] CARE-PODIATRY Cons Associate Financial Advisor's Choice Dec 06, 2021 12:52 PM [place]acy [place] Infusion Order [facility] Dec 06, 2021 03:24 PM Pharmacy [place] [facility] Dec 06, 2021 03:40 PM [place]acy [place] [facility] Dec 15, 2021 08:41 AM Consult Order SPEECH PATHOLOGY [place] OUTPATIENT Cons [facility] Associate Financial Advisor's Choice Jan 15, 2022 10:08 PM Consult Order [facility] CARE-PALLIATIVE CARE Cons Associate Financial Advisor's Choice Lab Results: +/- 30 days of [...] Reference Range Comment Dec 15, 2021 [place] P4 GLU,BUN,CREAT,LYTES,CA Speci men Type: PLASMA 06:43 AM [facility] Comment: Tests performed on [employer] (405) SN:[id number] Ordering Provid er: ISATU TODD Report Released Date/Time: Dec 11, 2021 07:42 AM Reporting Lab: [facility] T [facility] [address] [facility] [address] Performing Lab: [facility] [address] [facility] [address] UREA NITROGEN 9 7-25 SODIUM 137 135-145 [...] Lab: [facility] T [facility] [address] [facility] [address] Performing Lab: [facility] [address] [facility] [address] WBC 5.7 4.5-11.0 RBC 4.22 L 4.23-5.66 [...] ABSOLUTE NRBC 0.00 0-0 Dec 14, 2021 [facility] CYTOGENETIC Specimen Type: ESOPHAGUS 02:59 PM VAOC FISH([facility]) Comment: ~For T est: CYTOGENETIC FISH([facility]) ~FISH HER 2 NUE, FFPE See full report in [employer] Image display viewer/tab#LAB-Reference Ordering Provid er: NIURKA MILLER Report Released Date/Time: Dec 21, 2021 12:11 PM Reporting Lab: [facility] [address] [facility] [address] Performing Lab: [facility] CYTOGENETIC FISH([facility]) comment Dec 14, 2021 [facility] P4 GLU,BUN,CREAT,LYTES,CA Speci men Type: PLASMA 06:27 AM [facility] Comment: Tests performed on [employer] (405) SN:[id number] Ordering Provid er: ISATU TODD Report Released Date/Time: Dec 11, 2021 07:42 AM Reporting Lab: [facility] [address] [facility] [address] Performing Lab: [facility] [address] [facility] [address] UREA NITROGEN 10 7-25 SODIUM 137 135-145 POTASSIUM 4.0 3.5-5.0 CHLORIDE 104 100-110 CARBON DIOXIDE 25 20-30 ANION GAP 8 4-16 GLUCOSE 99 65-100 CREATININE 0.67 0.5-1.5 CALCIUM 8.2 L 8.5-10.5 eGFR(CKD-EPI 2020) >90.0 >60 Dec 14, 2021 06:27 AM [facility] CBC PROFILE Sp ecimen Type: BLOOD No comment enter ed. Ordering Provid er: ISATU TODD Report Released Date/Time: Dec 10, 2021 07:22 AM Reporting Lab: [facility] [address] [facility] [address] Performing Lab: [facility] [address] [facility] [address] WBC 6.0 4.5-11.0 RBC 4.29 4.23-5.66 HGB [...] ABSOLUTE NRBC 0.00 0-0 Dec 13, 2021 [facility] P4 GLU,BUN,CREAT,LYTES,CA Speci men Type: PLASMA 06:34 AM [facility] Comment: Tests performed on [employer] (405) SN:[id number] Ordering Provid er: ISATU TODD Report Released Date/Time: Dec 11, 2021 07:42 AM Reporting Lab: [facility] [address] [facility] [address] Performing Lab: [facility] [address] [facility] [address] UREA NITROGEN 12 7-25 SODIUM 136 135-145 POTASSIUM 3.9 3.5-5.0 CHLORIDE 105 100-110 CARBON DIOXIDE 24 20-30 ANION GAP 7 4-16 GLUCOSE 102 H 65-100 CREATININE 0.66 0.5-1.5 CALCIUM 8.3 L 8.5-10.5 eGFR(CKD-EPI 2020) >90.0 >60 Dec 13, 2021 06:34 AM [facility] CBC PROFILE Sp ecimen Type: BLOOD No comment enter ed. Ordering Provid er: ISATU TODD Report Released Date/Time: Dec 10, 2021 07:22 AM Reporting Lab: [facility] [address] [facility] [address] Performing Lab: [facility] [address] [facility] [address] WBC 5.6 4.5-11.0 RBC 4.28 4.23-5.66 HGB [...] ABSOLUTE NRBC 0.00 0-0 Dec 12, 2021 [facility] P4 GLU,BUN,CREAT,LYTES,CA Speci men Type: PLASMA 06:21 AM [facility] Comment: Tests performed on [employer] (405) SN:[id number] Ordering Provid er: ISATU TODD Report Released Date/Time: Dec 11, 2021 07:42 AM Reporting Lab: [facility] [address] [facility] [address] Performing Lab: [facility] [address] [facility] [address] UREA NITROGEN 11 7-25 SODIUM 139 135-145 [...] AM Reporting Lab: [facility] [address] [facility] [address] Performing Lab: [facility] [address] [facility] [address] WBC 5.5 4.5-11.0 RBC 4.37 4.23-5.66 HGB [...] 0.00 0-0 Dec 12, 2021 06:00 AM [facility] MAGNESIUM Sp ecimen Type: PLASMA Comment: Testin g Performed on [employer] (405) SN:[id number] Ordering Provid er: ISATU TODD Report Released Date/Time: Dec 12, 2021 08:24 AM Reporting Lab: [facility] MiNeedsT [facility] [address] [facility] [address] Performing Lab: [facility] [place] Mi[facility]edsT Spinal KineticsMROC [address] [facility] [address] MAGNESIUM 1.8 1.6-2.6 Dec 12, 2021 06:00 AM [facility] Spinal KineticsMROC PHOSPHORUS Sp ecimen Type: PLASMA Comment: Testin g Performed on [employer] (405) SN:[id number] Ordering Provid er: ISATU TODD Report Released Date/Time: Dec 12, 2021 08:24 AM Reporting Lab: [place] [facility]eds[facility] [address] [facility] [address] Performing Lab: [place] [facility]eds[facility] Spinal KineticsMROC [address] [facility] [address] PHOSPHORUS 3.1 2.5-5.0 Dec 11, 2021 06:15 AM [facility] [place] MiNeedsT Spinal KineticsMROC ELECTROLYTES Sp ecimen Type: PLASMA Comment: Tests performed on [employer] (405) SN:[id number] Ordering Provid er: ISATU TODD Report Released Date/Time: Dec 10, 2021 07:22 AM Reporting Lab: [place] [facility] [address] [facility] [address] Performing Lab: [place] [facility] [address] [facility] [address] SODIUM 137 135-145 POTASSIUM 4.3 3.5-5.0 CHLORIDE 108 100-110 CARBON DIOXIDE 20 20-30 ANION GAP 9 4-16 Dec 11, 2021 06:15 AM [place] [facility] CBC PROFILE Sp ecimen Type: BLOOD Comment: Result s checked Ordering Provid er: ISATU TODD Report Released Date/Time: Dec 10, 2021 07:22 AM Reporting Lab: [place] OMEGAT [facility] [address] [facility] [address] Performing Lab: [place] OMEGAT [facility] [address] [facility] [address] WBC 5.8 4.5-11.0 RBC 4.37 4.23-5.66 HGB [...] ecimen Type: PLASMA Comment: Tests performed on [employer] (806) SN:[id number] Results checked Ordering Provid er: ISATU TODD Report Released Date/Time: Dec 11, 2021 07:44 AM Reporting Lab: [facility] [place] [facility] [address] [facility] [address] Performing Lab: [place] OMEGAT AZMROC [address] [facility] [address] PHOSPHORUS 3.0 2.5-5.0 Dec 10, 2021 08:05 AM [place] [facility] MAGNESIUM Sp ecimen Type: PLASMA Comment: [place] [id number] on Dec 10, 2021@08:31 Tests performed on [employer] (405) SN:[id number] Ordering Provid er: ISATU TODD Report Released Date/Time: Dec 10, 2021 07:22 AM Reporting Lab: [place] [facility] [address] [place] [facility] [place] [facility] [place] [address] Performing Lab: [place] [facility] [address] [place] [facility] [place] [facility] [place] [address] MAGNESIUM 1.7 1.6-2.6 Dec 10, 2021 08:05 AM [place] UREA NITROGEN Specimen Type: PLASMA [facility] Comment: [place] [id number] on Dec 10, 2021@08:31 Tests performed on [employer] (405) SN:[id number] Ordering Provid er: ISATU TODD Report Released Date/Time: Dec 10, 2021 07:22 AM Reporting Lab: [place] [facility] [address] [place] [facility] [place] [place] [address] Performing Lab: [place] [facility] [address] [place] [facility] [place] [place] [address] UREA NITROGEN 8 7-25 Dec 10, 2021 08:05 AM [place] [facility] PHOSPHORUS Sp ecimen Type: PLASMA Comment: [place] [id number] on Dec 10, 2021@08:31 Tests performed on [employer] (405) SN:[id number] Ordering Provid er: ISATU TODD Report Released Date/Time: Dec 10, 2021 07:22 AM Reporting Lab: [place] [facility] [address] [place] [facility] [place] [place] [address] Performing Lab: [place] [facility] [address] [place] [facility] [place] [place] [address] PHOSPHORUS 1.8 L 2.5-5.0 Dec 10, 2021 08:05 AM [place] [facility] GLUCOSE Sp ecimen Type: PLASMA Comment: [place] [id number] on Dec 10, 2021@08:31 Tests performed on [employer] (405) SN:[id number] Ordering Provid er: ISATU TODD Report Released Date/Time: Dec 10, 2021 07:22 AM Reporting Lab: [place] [facility] [address] [facility] [address] Performing Lab: [place] [facility] [address] [facility] [address] GLUCOSE 144 H 65-100 Dec 10, 2021 08:05 AM [place] [facility] ELECTROLYTES Sp ecimen Type: PLASMA Comment: [place] [id number] on Dec 10, 2021@08:31 Tests performed on [employer] (405) SN:[id number] Ordering Provid er: ISATU TODD Report Released Date/Time: Dec 10, 2021 07:22 AM Reporting Lab: [place] [facility] [address] [facility] [address] Performing Lab: [place] [facility] [address] [facility] [address] SODIUM 139 135-145 POTASSIUM 3.7 3.5-5.0 CHLORIDE 107 100-110 CARBON DIOXIDE 24 20-30 ANION GAP 8 4-16 Dec 10, 2021 08:05 AM [place] [facility] CALCIUM Sp ecimen Type: PLASMA Comment: [place] [id number] on Dec 10, 2021@08:31 Tests performed on [employer] (405) SN:[id number] Ordering Provid er: ISATU TODD Report Released Date/Time: Dec 10, 2021 07:22 AM Reporting Lab: [place] [facility] [address] [facility] [address] Performing Lab: [place] [facility] [address] [facility] [address] CALCIUM 8.3 L 8.5-10.5 Dec 10, 2021 08:05 [place] CREATININE WITH eGFR Specime n Type: PLASMA AM [facility] PANEL Comment: [place] [id number] on Dec 10, 2021@08:31 Tests performed on [employer] (405) SN:[id number] Ordering Provid er: ISATU TODD Report Released Date/Time: Dec 10, 2021 07:22 AM Reporting Lab: [place] [facility] [address] [facility] [address] Performing Lab: [place] [facility] [address] [facility] [address] CREATININE 0.78 0.5-1.5 eGFR(CKD-EPI 2020) >90.0 >60 Dec 10, 2021 08:05 AM [facility] CBC PROFILE Sp ecimen Type: BLOOD No comment enter ed. Ordering Provid er: ISATU TODD Report Released Date/Time: Dec 10, 2021 07:22 AM Reporting Lab: [place] OMEGAT [facility] [address] [facility] [address] Performing Lab: [place] [facility] [address] [facility] [address] WBC 7.0 4.5-11.0 RBC 4.54 4.23-5.66 HGB [...] 0.00 0-0 Dec 09, 2021 06:46 AM [facility] MAGNESIUM Sp ecimen Type: PLASMA Comment: Tests performed on [employer] (905) SN:[id number] Ordering Provid er: ISATU TODD Report Released Date/Time: Dec 08, 2021 10:23 AM Reporting Lab: [facility] [address] [facility] [address] Performing Lab: [facility] [address] [facility] [address] MAGNESIUM 1.6 1.6-2.6 Dec 09, 2021 [facility] P4 GLU,BUN,CREAT,LYTES,CA Speci men Type: PLASMA 06:46 AM [facility] Comment: Tests performed on [employer] (405) SN:[id number] Ordering Provid er: ISATU TODD Report Released Date/Time: Dec 08, 2021 05:00 PM Reporting Lab: [facility] [address] [facility] [address] Performing Lab: [facility] [address] [facility] [address] UREA NITROGEN 6 L 7-25 SODIUM 134 L 135-145 POTASSIUM 3.7 3.5-5.0 CHLORIDE 103 100-110 CARBON DIOXIDE 23 20-30 ANION GAP 8 4-16 GLUCOSE 112 H 65-100 CREATININE 0.70 0.5-1.5 CALCIUM 8.1 L 8.5-10.5 eGFR(CKD-EPI 2020) >90.0 >60 Dec 09, 2021 06:46 AM [facility] CBC PROFILE Sp ecimen Type: BLOOD No comment enter ed. Ordering Provid er: ISATU TODD Report Released Date/Time: Dec 08, 2021 05:00 PM Reporting Lab: [facility] [address] [facility] [address] Performing Lab: [facility] [address] [facility] [address] WBC 7.1 4.5-11.0 RBC 4.40 4.23-5.66 HGB [...] 0.00 0-0 Dec 08, 2021 06:39 AM [place] [facility] T [facility] MAGNESIUM Sp ecimen Type: PLASMA Comment: Testin g Performed on [employer] (405) SN:[id number] Ordering Provid er: ISATU TODD Report Released Date/Time: Dec 07, 2021 10:32 AM Reporting Lab: [facility] [address] [facility] [address] Performing Lab: [facility] [address] [facility] [address] MAGNESIUM 1.5 L 1.6-2.6 Dec 08, 2021 [place] [facility] T P4 GLU,BUN,CREAT,LYTES,CA Speci men Type: PLASMA 06:39 AM [facility] Comment: Testin g Performed on [employer] (405) SN:[id number] Ordering Provid er: ISATU TODD Report Released Date/Time: Dec 07, 2021 10:32 AM Reporting Lab: [place] T [facility] [address] [facility] [address] Performing Lab: [facility] [address] [facility] [address] UREA NITROGEN 6 L 7-25 SODIUM 136 135-145 POTASSIUM 3.3 L 3.5-5.0 CHLORIDE 104 100-110 CARBON DIOXIDE 22 20-30 ANION GAP 10 4-16 GLUCOSE 133 H 65-100 CREATININE 0.76 0.5-1.5 CALCIUM 8.4 L 8.5-10.5 eGFR(CKD-EPI 2020) >90.0 >60 Dec 08, 2021 06:39 AM [place] T [facility] CBC PROFILE Sp ecimen Type: BLOOD No comment enter ed. Ordering Provid er: ISATU TODD Report Released Date/Time: Dec 07, 2021 10:32 AM Reporting Lab: [facility] [address] [facility] [address] Performing Lab: [facility] [address] [facility] WBC 8.4 4.5-11.0 RBC 4.75 4.23-5.66 HGB [...] NRBC 0.00 0-0 Dec 07, 2021 06:42 [facility] LIVER PROFILE Specimen Typ e: PLASMA AM [facility] Comment: Tests performed on [employer] (405 SN:[id number] Ordering Provid er: PORFIRIO WALTERS Report Released Date/Time: Dec 06, 2021 06:57 PM Reporting Lab: [facility] [address] [facility] [address] Performing Lab: [facility] [address] [facility] [address] PROTEIN, TOTAL 5.7 L 6.0-8.5 ALBUMIN 2.4 L 3.2-5.0 BILIRUBIN, TOTAL 0.4 0.2-1.2 ALKALINE PHOSPHATASE 109 40-150 ALT(SGPT) 10 7-52 AST(SGOT) 15 5-34 FIB-4 SCORE 1.92 <2.67 Dec 07, 2021 [facility] P4 GLU,BUN,CREAT,LYTES,CA Speci men Type: PLASMA 06:42 AM [facility] Comment: Tests performed on [employer] (405) SN:[id number] Ordering Provid er: PORFIRIO WALTERS Report Released Date/Time: Dec 06, 2021 06:57 PM Reporting Lab: [place] [facility] [address] [facility] [address] Performing Lab: [place] [facility] [address] [facility] [address] UREA NITROGEN 9 7-25 SODIUM 135 135-145 POTASSIUM 3.5 3.5-5.0 CHLORIDE 103 100-110 CARBON DIOXIDE 22 20-30 ANION GAP 10 4-16 GLUCOSE 92 65-100 CREATININE 0.73 0.5-1.5 CALCIUM 8.0 L 8.5-10.5 eGFR(CKD-EPI 2020) >90.0 >60 Dec 07, 2021 06:42 AM [place] CBC PROFILE Specimen Type: BLOOD [facility] No comment enter ed. Ordering Provid er: PORFIRIO WALTERS Report Released Date/Time: Dec 06, 2021 06:57 PM Reporting Lab: [place] [facility] [address] [facility] [address] Performing Lab: [facility] [address] [facility] [address] WBC 5.7 4.5-11.0 RBC 4.15 L 4.23-5.66 [...] [facility] %) AUTOMATED Comment: Tests performed on [employer] (405) SN:[id number] Ordering Provid er: ISATU TODD Report Released Date/Time: Dec 07, 2021 10:28 AM Reporting Lab: [place] [facility] [address] [facility] [address] Performing Lab: [place] [facility] [address] [facility] [address] RETICULOCYTES (%) AUTOMATED 1.23 0. 6-2.0 RETICULOCYTES (ABS) AUTOMATED 0.052 0.030-0.090 Dec 06, 2021 09:45 [place] MRSA SURVL NARES Specimen Ty pe: NARES PM [facility] DNA No comment enter ed. Ordering Provid er: ALVARO VARGHESE Report Released Date/Time: Dec 07, 2021 02:20 AM Reporting Lab: [place] [facility] [address] [facility] [address] Performing Lab: [place] [facility] [address] [facility] [address] MRSA SURVL NARES DNA NEGATIVE NEGATIVE Dec 06, 2021 06:00 [place] URINALYSIS W/REFLEX TO Speci men Type: URINE PM [facility] CULTURE No comment enter ed. Ordering Provid er: JELANI SÁNCHEZ Report Released Date/Time: Dec 06, 2021 11:57 AM Reporting Lab: [place] [facility] [address] [facility] [address] Performing Lab: [place] [facility] [address] [facility] [address] URINE COLOR Arlin YELLOW SPECIFIC GRAVITY 1.029 [...] 21, R[place] VARIANT Comment: https://www.cdc.gov/coronavirus/2019-ncov/cases-updates/variant- surveillance/variant-info.html The Qoniac SARS CoV 2 Medication Review Research Assay-GX is a next-generation sequencing (NGS) assa 2021 [facility] SEQUENCING y that determine s the complete genome sequence of the SARS-CoV-2 virus. The assay contains variant-tolerant primers to broaden and improve the coverage for variant detection and increase the sensitivity 12:00 [facility] PNL(WH) of the panel to enable detection from lower viral titer samples. The assay is run on the [employer] Sequencer, which performs automated library preparation, sequencing, analysis, and reporting. PM The sequence an alysis includes determination of viral phylogenetic lineage by comparison to the reference strain Wuhan-Hu-1, GenBank: [id number]. Sequence determination may not be possible owing [...] and its performance characteristics determined by the [facility] Molecular Diagnostics Laboratory, which is certified under the Clinical Laboratory Improveme nt Amendments (C MARCO) as qualified to perform high complexity clinical laboratory testing. This test is validated for clinical use at [facility] and should not be [...] [facility] [address] [facility] [address] Performing Lab: [facility] [address] [facility] [address] SARS-CoV-2 CLADE() 22C (OMICRON) SARS-CoV-2 LINEAGE() BA.2.12.1 Dec 06, 2021 12:00 [facility] COVID-19 AG SCREEN Specimen Type: NASAL CAVITY PM [facility] PANEL [employer]INAX(405) Comment: Testi ng Performed By: Mike Briscoe Ordering Provid er: JELANI SÁNCHEZ Report Released Date/Time: Dec 08, 2021 08:23 AM Reporting Lab: [facility] [address] [facility] [address] Performing Lab: [facility] [address] [facility] [address] COVID-19 AG SCRN(wrj BINAX) POSITIVE HH NE G Dec 06, 2021 12:00 PM [facility] LIVER PROFILE Sp ecimen Type: PLASMA Comment: Testin g Performed on [employer] (405) SN:[id number] Ordering Provid er: JELANI SÁNCHEZ Report Released Date/Time: Dec 06, 2021 11:57 AM Reporting Lab: [facility] [address] [facility] [address] Performing Lab: [facility] [address] [facility] [address] PROTEIN, TOTAL 6.6 6.0-8.5 ALBUMIN 2.8 L 3.2-5.0 BILIRUBIN, TOTAL 0.6 0.2-1.2 ALKALINE PHOSPHATASE 134 40-150 ALT(SGPT) 13 7-52 AST(SGOT) 18 5-34 FIB-4 SCORE 1.94 <2.67 Dec 06, 2021 [facility] P4 GLU,BUN,CREAT,LYTES,CA Speci men Type: PLASMA 12:00 PM [facility] Comment: Testin g Performed on [employer] (405) SN:[id number] Ordering Provid er: JELANI SÁNCHEZ Report Released Date/Time: Dec 06, 2021 11:57 AM Reporting Lab: [place] [facility] [address] [facility] [address] Performing Lab: [place] [facility] [address] [facility] [address] UREA NITROGEN 13 7-25 SODIUM 138 135-145 POTASSIUM 3.8 3.5-5.0 CHLORIDE 103 100-110 CARBON DIOXIDE 23 20-30 ANION GAP 12 4-16 GLUCOSE 105 H 65-100 CREATININE 0.90 0.5-1.5 CALCIUM 8.7 8.5-10.5 eGFR(CKD-EPI 2020) >90.0 >60 Dec 06, 2021 12:00 PM [facility] Sp ecimen Type: PLASMA Comment: Tests performed on Ph[employer] Content (405) [id number] Ordering Provid er: JELANI SÁNCHEZ Report Released Date/Time: Dec 06, 2021 11:57 AM Reporting Lab: [facility] [address] [facility] [address] Performing Lab: [facility] [address] [facility] [address] TROPONIN II 0.03 0.00-0.29 Dec 06, 2021 12:00 PM [facility] Sp ecimen Type: PLASMA Comment: Tests performed on Pham [employer] Content (405) [id number] Ordering Provid er: JELANI SÁNCHEZ Report Released Date/Time: Dec 06, 2021 11:57 AM Reporting Lab: [facility] [address] [facility] [address] Performing Lab: [facility] [address] [facility] [address] BNP(P) 224.8 H 10-100 Dec 06, 2021 [facility] [place] COVID-19+FLU/RSV DIAGNOSTIC Spe cimen Type: NASOPHARYNX 12:00 PM [facility] PANEL(405) Comment: Tests performed on WIDIP Genexpert (405) Critical results called to and read back by: ALESHIA WILKINSON RN 12/06/21 @ 1312 Ordering Provid er: JELANI SÁNCHEZ Report Released Date/Time: Dec 06, 2021 11:57 AM Reporting Lab: [facility] [address] [facility] [address] Performing Lab: [place] [facility] [address] [facility] [address] FLU A(PCR) NEGATIVE NEGATIVE FLU B(PCR) NEGATIVE NEGATIVE RSV(PCR) NEGATIVE NEGATIVE COVID-19(TST-ely-QASYIKOME) DETECTED HH NO T DETECTED Dec 06, 2021 12:[facility] ecimen Type: BLOOD No comment enter ed. Ordering Provid er: JELANI SÁNCHEZ Report Released Date/Time: Dec 06, 2021 11:57 AM Reporting Lab: [facility] [address] [facility] [address] Performing Lab: [facility] [address] [facility] [address] WBC 7.2 4.5-11.0 RBC 4.86 4.23-5.66 HGB [...] WHITE 2021 11:00 /min mm[Hg] R[facility] PM [facility] Dec 07, 95 144/57 18 /min 98 % 0 WHITE 2021 03:08 /min mm[Hg] RIVER PM T [facility] Dec 07, 96.3 F WHITE 2021 06:07 [facility] AM [facility] Dec 07, 88 141/85 16 /min 95 % 0 WHITE 2021 06:03 /min mm[Hg] [facility] AM [facility] Dec 07, 6 WHITE 2021 12:47 R[facility] AM [facility] Social History: Smoking Status (Most current) and [...] 1-7 YEARS AGO [facility] Mar 24, 2020 03:00 PM QUIT TOBACCO USE 1-7 YEARS AGO [facility] Feb 21, 2019 04:11 PM QUIT TOBACCO USE 1-7 YEARS AGO [facility] Feb 20, 2019 03:38 PM QUIT TOBACCO USE 1-7 YEARS AGO [facility] Feb 03, 2019 09:50 AM QUIT TOBACCO USE 1-7 YEARS AGO [facility] May 25, 2016 11:53 PM QUIT TOBACCO USE IN PAST YEAR [facility] May 23, 2016 06:57 PM QUIT TOBACCO USE > 7 YEARS AGO [facility] May 19, 2016 03:55 PM QUIT TOBACCO USE IN PAST YEAR [facility] May 19, 2016 10:29 AM QUIT TOBACCO USE 1-7 YEARS AGO [facility] May 01, 2016 07:26 PM QUIT TOBACCO USE IN PAST YEAR [facility]Y DOYLE [facility] May 01, 2016 03:11 PM QUIT TOBACCO USE IN PAST YEAR [facility]Y DOYLE [facility] May 01, 2016 11:19 AM QUIT TOBACCO USE IN PAST YEAR [facility]Y DOYLE [facility] Mar 16, 2016 12:50 PM V1-PT DECLINES REF TO TOBACCO CAREY DOYLE [facility] CESS [facility] Mar 16, 2016 12:50 PM V1-PT THINKING ABOUT QUIT CAREY DOYLE [facility] TOBACCO USE Aug 12, 2015 08:48 AM CURRENT SMOKER CAREY Yates [facility] Radiology Reports: +/- 30 days of the [...] W/WO CONTRAST: MARYELLEN LONG LUCAS LARES N [id number] -1950 [facility] Exm Date: DEC 13, 2021@12:57 Req Phys: ISATU TODD Loc: OP Unknown/0 12-15-2021@13:20 Img Loc: MRI IMAGING (OOS) Service: ZZGENERAL MEDICINE (Case [id number] COMPLETE) MRI ABDOMEN W/WO CONTRAST (M RI Detailed) CPT:77141 Reason for Study: further characterization of a [...] new lyphadenopathy REQUESTING MD: Isatu Todd PAGER: [phone] PHONE: [phone] Weight: 232.2 lb [105.32 kg] (12/12/2021 05:00) [...] patient will need to arrange for a inventory associate and driver to take him/her home after the [...] 15, 2021 Date Verified: DEC 15, 2021 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 E-Sig:/ES/MARYELLEN LONG Report: MRI ABDOMEN W/WO CONTRAST [...] MALIGNANCY Primary Interpreting Staff: Staff 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 READING PHYSICIAN: Ramone Munoz D.O. [phone] 12/10/2021 10:55 EDT [facility] National Teleradiology Program [phone] (For Medical Practitioner Use Only ) [address] [facility] [address], [address] [place] [address] Attention Patients / Veterans: If you have ques tions or concerns about these test results, please contact your o rdering provider or primary care team. Primary Diagnostic Code: SIGNIFICANT ABNORMALIT Y, ATTN NEEDED Primary Interpreting Staff: RADIOLOGY,OUTSIDE SERVICE, Staff Physician / Dec 09, 2021 07:34 AM BASW (MODIFIED): JESSIE CHENEY [facility] LUCAS MEEK N [id number] -1950 M [facility] Exm Date: DEC 09, 2021@07:34 Req Phys: ISATU TODD Loc: 1S /12-09@11:26 Img Loc: XRAY (OOS) Service: [facility] MEDICINE (Case [id number] COMPLETE) BASW (MODIFIED) (RAD Detaile d) CPT:78581 Contrast Media : Barium Reason for Study: dysphagia ?esophageal spasm Clinical History: Report Status: Verified Date Reported: DEC 09, 2021 Date Verified: DEC 09, 2021 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 E-Sig:/ES/JESSIE CHENEY Report: BASPrincess (MODIFIED) , 12/09/2021 [...] REQUIRED Primary Interpreting Staff: JESSIE CHENEY, RADIOLOGIST (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) /TLC Dec 06, 2021 12:[address] CHEST (INCLUDES ADRENALS): JESSIE CHENEY [facility] LUCAS MEEK N [id number] -1950 M [facility] Exm Date: DEC 06, 2021@12:59 Req Phys: GONZALOJELANI ORLANDO Loc: [facility] ED DAYS M 1RD (Req'g Loc) Img Loc: CT SCAN (OOS) Service: Unknown (Case [id number] COMPLETE) CT THORAX W/O CONT (CT Detai led) CPT:18915 Reason for Study: Opacification right chest Clinical History: No contrast allergy BUN: 13 (12/06/21 12:00) CREATI: 0.90 (12/06/21 12:00) eGFR 05/16/21 09:43 52 L Weight: 232.6 lb [105.51 kg] (12/06/2021 11:40) BODY MASS INDEX - NO HEIGHTS FOUND Pager number: [phone] STAT orders MUST be called t o RADIOLOGY [phone] to speak to the appropriate aircraft technician. Indications - Other: Opacification right chest, covid positive, lung cancer histo Report Status: Verified Date Reported: DEC 06, 2021 Date Verified: DEC 06, 2021 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 E-Sig:/ES/JESSIE CHENEY Report: CT THORAX W/O CONT [...] REQUIRED Primary Interpreting Staff: JESSIE CHENEY, RADIOLOGIST (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) Primary Interpreting Resident: PRINCE CHAMPION, Resident /BR Dec 06, 2021 11:58 AM CHEST SINGLE VIEW: JESSIE CHENEY LUCAS MEEK Lei [id number] -1950 M [facility] Exm Date: DEC 06, 2021@11:58 Req Phys: JELANI SÁNCHEZ Pat Loc: [facility] ED DAYS M 1RD (Req'g Loc) Img Loc: XRAY (OOS) Service: Unknown (Case [id number] COMPLETE) CHEST SINGLE VIEW (RAD Detai led) CPT:14613 Proc Modifiers : PORTABLE EXAM Reason for Study: SOB, home covid test positive Clinical History: Report Status: Verified Date Reported: DEC 06, 2021 Date Verified: DEC 06, 2021 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 E-Sig:/ES/JESSIE CHENEY Report: Exam type: Chest x-ray [...] REQUIRED Primary Interpreting Staff: JESSIE CHENEY, RADIOLOGIST (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) /TLC Pathology Reports: +/- 30 days of [...] [place] LOCAL TITLE: LR SURGICAL PATHOLOGY REPORT [facility] STANDARD TITLE: PATHOLOGY REPORT DATE OF NOTE: JAN 03, 2022@10:28:01 ENTRY DATE: JAN 03, 2022@10:28:01 AUTHOR: NIURKA MILLER EXP COSIGNER: URGENCY: STATUS: COMPLETED $APHDR Reporting Lab: CAREY DOYLE [facility] [CLIA# [id number]] [address] [place] [address] - - - - - - [...] - - - - $TEXT Submitted by: ISTAU TODD Date obtained: Marizol 2021 14:59 - [...] automatically d ocumented from SURGERY package case #[id number] Field (#32) PRINCIPAL PRE-OP DIAGNOSIS, (#.72) OTHER [...] automatically d ocumented from SURGERY package case #[id number] Field (#34) PRINCIPAL POST-OP DIAG, (#.74) OTHER POSTOP DIAGS Esophageal cancer Surgeon/physician: MICHELLE ACLERO Attending Surgeon: Kyle Saenz MD =-=-=-=-=-=-=-=-=-=-=-=-=-=- =-=-=-=-=-=-=-=-=-=-=-=-=-=-=-=-=-=-=-=-=-=-=-=-=-= [...] Label: Lucas Meek Paperwork: Lucas Meek Cassette: [id number];..;KALYANI;.;405;[phone] Specimen is labeled: ES bx Received in formalin are several pieces of pale boyd and brown tissue, 1.2 x 0.7 cm in aggregate. Submitted entirely in 1 cassette [id number];..;KALYANI;.;405;[id number] SAW 12/15/2021 Microscopic exam: *+* MODIFIED REPORT *+* (Last modified: JAN 03, 2022@09:30:20 typed by NIURKA WADDELL) DIAGNOSIS: A. 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 Kendell long. TIARA Coombs was notified on 12/21/21. Modified on 01/03/22 to include report from [facility] stating that tumor is NEGATIVE for her2/ matheus amplification. The attending pathologist who signature mansoor ears on this report has reviewed all diagnostic slides and has edited t he gross and/or microscopic portion of this report in rendering the final pathologic diagnosis. [address] [address] CPT: 06115 /emely/ NIURKA Yeung MD Signed Jan 03, 2022@10:28 Performing Laboratory: Surgical Pathology Report Performed By: CAREY MONTOYA [facility] [CLIA# [id number]] [address] [place] [address] $FTR - - - - - [...] - - LUCAS MEEK STANDARD FORM 515 ID:[id number] SEX:M :1950 AGE: 71 LOC: SDM END PCP: Isatu Todd /emely/ NIURKA MILLER Staff Signed: 01/03/2022 10:28 Dec 21, 2021 11:46 AM LR SURGICAL PATHOLOGY REPORT: STEFANY MILLER [place] LOCAL TITLE: LR SURGICAL PATHOLOGY REPORT [facility] STANDARD TITLE: PATHOLOGY REPORT DATE OF NOTE: DEC 21, 2021@11:46:59 ENTRY DATE: DEC 21, 2021@11:46:59 AUTHOR: NIURKA MILLER EXP COSIGNER: URGENCY: STATUS: COMPLETED $APHDR Reporting Lab: [facility]Y DOYLE [facility] [CLIA# [id number]] [address] [place] [address] - - - - - - [...] automatically d ocumented from SURGERY package case #[id number] Field (#32) PRINCIPAL PRE-OP DIAGNOSIS, (#.72) OTHER [...] automatically d ocumented from SURGERY package case #[id number] Field (#34) PRINCIPAL POST-OP DIAG, (#.74) OTHER [...] Label: Lucas Meek Paperwork: Lucas Meek Cassette: [id number];..;KALYANI;.;405;[phone] Specimen is labeled: ES bx Received in formalin are several pieces of pale boyd and brown tissue, 1.2 x 0.7 cm in aggregate. Submitted entirely in 1 cassette [id number];..;KALYANI;.;405;[id number] SAW 12/15/2021 Microscopic exam: DIAGNOSIS: A. 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 Kendell long. TIARA Coombs was notified on 12/21/21. The attending pathologist who signature mansoor ears on this report has reviewed all diagnostic slides and has edited t he gross and/or microscopic portion of this report in rendering the final pathologic diagnosis. [address] [address] CPT: 06944 /emely/ NIURKA Yeung MD Signed Dec 21, 2021@11:46 Performing Laboratory: Surgical Pathology Report Performed By: [facility] [CLIA# [id number]] [address] [place] [address] $FTR - - - - - [...] - - LUCAS MEEK STANDARD FORM 515 ID:[id number] SEX:M :1950 AGE: 71 LOC: [facility] END PCP: Isatu Todd /charmaine Yeung MD Signed: 12/21/2021 11:46 Dec 06, 2021 03:30 PM LR MICROBIOLOGY REPORT: [facility] Reporting Lab: [facility] [CLIA# [id number]] [address] [place] [address] Accession [UID]: [id number] [[id number]] Receiv ed: Dec 06, 2021@16:14 Collection sample: BLOOD CUL T BOTTLE(NIRMAL/AERO)Collection date: Dec 06, 2021 15:30 Site/Specimen: BLOOD Provider: JELANI SÁNCHEZ Comment on specimen: LAC Test(s) ordered: BLOOD CULTURE ANAEROBI C....... completed: Dec 12, 2021 06:18 * BACTERIOLOGY FINAL REPORT => Dec 12, 2021 06:1 8 TECH CODE: [id number] Bacteriology Remark(s): NO GROWTH IN 5 DAYS =--=--=--=--=--=--=--=--=--=--=--=--=--= --=--=--=--=--=--=--=--=--=--=--=--=-- Performing Laboratory: Bacteriology Report Performed By: [facility] [CLIA# [id number]] [address] [place] [address] Dec 06, 2021 03:30 PM LR MICROBIOLOGY REPORT: [facility] Reporting Lab: [facility] [CLIA# [id number]] [address] [place] [address] Accession [UID]: [id number] [[id number]] Receiv ed: Dec 06, 2021@16:14 Collection sample: BLOOD CUL T BOTTLE(NIRMAL/AERO)Collection date: Dec 06, 2021 15:30 Site/Specimen: BLOOD Provider: JELANI SÁNCHEZ Comment on specimen: LAC Test(s) ordered: BLOOD CULTURE AEROBIC. ........ completed: Dec 12, 2021 06:17 * BACTERIOLOGY FINAL REPORT => Dec 12, 2021 06:1 7 TECH CODE: [id number] Bacteriology Remark(s): NO GROWTH IN 5 DAYS =--=--=--=--=--=--=--=--=--=--=--=--=--= --=--=--=--=--=--=--=--=--=--=--=--=-- Performing Laboratory: Bacteriology Report Performed By: [facility] [CLIA# [id number]] [address] [facility] [place] [address]
--- OUTSIDE RECORDS SUMMARY | 2022-01-19 08:18 | XMS_ITS ---
DAILY HOSPITALIZATION DATA [facility] Encounter Summary Created on:December 07, 2021 Patient:LUCAS MEEK Sex:Male :1950 Author Organization [facility] Address [address] [place] [id number] Support Name Relationship Address Phone YUSRA MEEK Unavailable [address] [place] [address] YUSRA MEEK Unavailable [address] [place] [facility] [place] [address] CLAY MOSLEY Unavailable Unavailable SJ SANTACRUZ Unavailable [...] MEDICARE MEDICARE PART Jun 18, PART A [id number] KALYANI PATIENT (WNR) (M) A 2016 13A 1 UGLAS MEDICARE MEDICARE PART Jun 18, PART B [id number] MEEK DO PATIENT (WNR) (M) B 2017 VH81 2 [place]AS MEDICARE MEDICARE PART Jun 18, PART A [id number] KALYANIDO PATIENT (WNR) (M) A 2017 VH81 2 [place] MEDICARE MEDICARE PART Jun 18, PART B [id number] DO KALYANI PATIENT (WNR) (M) B 2016 13A 1 [place]AS UNITED MEDICARE MCR(Jun [id number] Luz MEEK PATIENT HEALTHCARE ADVANTAGE NR) 2021 37 0 UGLAS MCR (WNR) Selected Encounter This section includes the information on record at [place] for the Encounter. Date/Time Encounter Type Encounter Description Reason Provider Source Dec 07, 2021 09:30 Inpatient Visit DAILY HOSPITALIZATION DATA AM [facility] Encounter Template Text not used by [place] Plan of Treatment: Future Appointments (+ 6 [...] AM AMBUL[place]ORY - NONE [place] [facility] Jan 06, 2022 02:00 PM [place] [facility] Jan 10, 2022 11:30 AM [facility] - MEDICINE [facility] Jan 24, 2022 08:00 AM [place] [facility] Feb 21, 2022 10:00 AM [place] [facility] Mar 21, 2022 10:30 AM AMBULATORY - MEDICINE [facility] Active, Pending, and [...] the Encounter. The data comes from all [place] treatment [facility]. Test Date/Time Test Type Test Details Facility Name October 31, 2021 07:37 AM Consult Order [facility]-E[facility] Cons [employer] November 15, 2021 10:37 AM Consult Order [facility] CARE-PODIATRY Cons [employer] Dec 06, 2021 12:52 PM [place]acy [place] [facility] [facility] Dec 06, 2021 03:24 PM [place]acy [place] [facility] Dec 06, 2021 03:40 PM [place]acy [place] [facility] Dec 15, 2021 08:41 AM Consult Order SPEECH PATHOLOGY [place] Cons [facility] [employer] Jan 15, 2022 10:08 PM Consult Order [facility] CARE-PALLIATIVE CARE Cons [employer] Lab Results: +/- 30 days of [...] Reference Range Comment Dec 15, 2021 [place] P4 GLU,BUN,CREAT,LYTES,CA Speci men Type: PLASMA 06:43 AM [facility] Comment: Tests performed on DineInTime (405) SN:[id number] Ordering Provid er: ISATU TODD Report Released Date/Time: Dec 11, 2021 07:42 AM Reporting Lab: [facility] T [facility] [address] [facility] [address] Performing Lab: [facility] [address] [facility] [address] UREA NITROGEN 9 7-25 SODIUM 137 135-145 POTASSIUM 3.8 3.5-5.0 CHLORIDE 105 100-110 CARBON DIOXIDE 26 20-30 ANION GAP 6 4-16 GLUCOSE 102 H 65-100 CREATININE 0.64 0.5-1.5 CALCIUM 8.1 L 8.5-10.5 eGFR(CKD-EPI 2020) >90.0 >60 Dec 15, 2021 06:43 AM [facility] CBC PROFILE Sp ecimen Type: BLOOD No comment enter ed. Ordering Provid er: ISATU TODD Report Released Date/Time: Dec 10, 2021 07:22 AM Reporting Lab: [facility] T [facility] [address] [facility] [address] Performing Lab: [facility] [address] [facility] [address] WBC 5.7 4.5-11.0 RBC 4.22 L 4.23-5.66 [...] NRBC 0.00 0-0 Dec 14, 2021 [facility] CYTOGENETIC Specimen Type: ESOPHAGUS 02:59 PM [facility] FISH([facility]) Comment: ~For T est: CYTOGENETIC FISH([facility]) ~FISH HER 2 NUE, FFPE See full report in LegalSherpa Image display viewer/tab#LAB-Reference Ordering Provid er: NIURKA MILLER Report Released Date/Time: Dec 21, 2021 12:11 PM Reporting Lab: [facility] [address] [facility] [address] Performing Lab: [facility] CYTOGENETIC FISH([facility]) comment Dec 14, 2021 [facility] P4 GLU,BUN,CREAT,LYTES,CA Speci men Type: PLASMA 06:27 AM [facility] Comment: Tests performed on DineInTime (405) SN:[id number] Ordering Provid er: ISATU TODD Report Released Date/Time: Dec 11, 2021 07:42 AM Reporting Lab: [facility] [address] [facility] [address] Performing Lab: [facility] [address] [facility] [address] UREA NITROGEN 10 7-25 SODIUM 137 135-145 [...] Reporting Lab: [facility] [address] [facility] [address] Performing Lab: [facility] [address] [facility] [address] WBC 6.0 4.5-11.0 RBC 4.29 4.23-5.66 HGB [...] 0.00 0-0 Dec 13, 2021 [facility] P4 GLU,BUN,CREAT,LYTES,CA Speci men Type: PLASMA 06:34 AM [facility] Comment: Tests performed on DineInTime (405) SN:[id number] Ordering Provid er: ISATU TODD Report Released Date/Time: Dec 11, 2021 07:42 AM Reporting Lab: [facility] [address] [facility] [address] Performing Lab: [facility] [address] [facility] [address] UREA NITROGEN 12 7-25 SODIUM 136 135-145 [...] Reporting Lab: [facility] [address] [facility] [address] Performing Lab: [facility] [address] [facility] [address] WBC 5.6 4.5-11.0 RBC 4.28 4.23-5.66 HGB [...] ABSOLUTE NRBC 0.00 0-0 Dec 12, 2021 [facility] P4 GLU,BUN,CREAT,LYTES,CA Speci men Type: PLASMA 06:21 AM [facility] Comment: Tests performed on DineInTime (405) SN:[id number] Ordering Provid er: ISATU TODD Report Released Date/Time: Dec 11, 2021 07:42 AM Reporting Lab: [facility] [address] [facility] [address] Performing [facility]: [facility] [address] [facility] [address] UREA NITROGEN 11 7-25 SODIUM 139 135-145 POTASSIUM 4.1 3.5-5.0 CHLORIDE 107 100-110 CARBON DIOXIDE 24 20-30 ANION GAP 8 4-16 GLUCOSE 110 H 65-100 CREATININE 0.70 0.5-1.5 CALCIUM 8.3 L 8.5-10.5 eGFR(CKD-EPI 2020) >90.0 >60 Dec 12, 2021 06:21 AM [facility] CBC PROFILE Sp ecimen Type: BLOOD No comment enter ed. Ordering Provid er: ISATU TODD Report Released Date/Time: Dec 10, 2021 07:22 AM Reporting Lab: [facility] [address] [facility] [address] Performing Lab: [facility] [address] [facility] [address] WBC 5.5 4.5-11.0 RBC 4.37 4.23-5.66 HGB [...] 0.00 0-0 Dec 12, 2021 06:00 AM [facility] MAGNESIUM Sp ecimen Type: PLASMA Comment: Testin g Performed on DineInTime (405) SN:[id number] Ordering Provid er: ISATU TODD Report Released Date/Time: Dec 12, 2021 08:24 AM Reporting Lab: [place] [employer] [facility] [address] [facility] [address] Performing Lab: [facility] [place] [employer] [facility] [address] [facility] [address] MAGNESIUM 1.8 1.6-2.6 Dec 12, 2021 06:00 AM [facility] PHOSPHORUS Sp ecimen Type: PLASMA Comment: Testin g Performed on DineInTime (405) SN:[id number] Ordering Provid er: ISATU TODD Report Released Date/Time: Dec 12, 2021 08:24 AM Reporting Lab: [place] [employer] [facility] [address] [facility] [address] Performing Lab: [place] [employer] [address] [facility] [address] PHOSPHORUS 3.1 2.5-5.0 Dec 11, 2021 06:15 AM [facility] [place] [employer] [employer] ELECTROLYTES Sp ecimen Type: PLASMA Comment: Tests performed on DineInTime (405) SN:[id number] Ordering Provid er: ISATU TODD Report Released Date/Time: Dec 10, 2021 07:22 AM Reporting Lab: [place] [employer] [facility] [address] [facility] [address] Performing Lab: [place] [employer] [facility] [address] [facility] [address] SODIUM 137 135-145 POTASSIUM 4.3 3.5-5.0 CHLORIDE 108 100-110 CARBON DIOXIDE 20 20-30 ANION GAP 9 4-16 Dec 11, 2021 06:15 AM [place] [employer] [facility] CBC PROFILE Sp ecimen Type: BLOOD Comment: Result s checked Ordering Provid er: ISATU TODD Report Released Date/Time: Dec 10, 2021 07:22 AM Reporting Lab: [place] [address] [facility] [address] Performing Lab: [place] [facility] [address] [facility] [address] WBC 5.8 4.5-11.0 RBC 4.37 4.23-5.66 HGB [...] ecimen Type: PLASMA Comment: Tests performed on DineInTime (474) SN:[id number] Results checked Ordering Provid er: ISATU TODD Report Released Date/Time: Dec 11, 2021 07:44 AM Reporting Lab: [place] [facility] [address] [facility] [address] Performing Lab: [place] [employer] [facility] [address] [facility] [address] PHOSPHORUS 3.0 2.5-5.0 Dec 10, 2021 08:05 AM [place] [facility] MAGNESIUM Sp ecimen Type: PLASMA Comment: [place] [id number] on Dec 10, 2021@08:31 Tests performed on DineInTime (405) SN:[id number] Ordering Provid er: ISATU TDOD Report Released Date/Time: Dec 10, 2021 07:22 AM Reporting Lab: [place] [facility] [address] [place] [facility] [place] [address] Performing Lab: [place] [facility] [address] [place] [facility] [place] [address] MAGNESIUM 1.7 1.6-2.6 Dec 10, 2021 08:05 AM [place] [facility] PHOSPHORUS Sp ecimen Type: PLASMA Comment: [place] [id number] on Dec 10, 2021@08:31 Tests performed on DineInTime (405) SN:[id number] Ordering Provid er: ISATU TODD Report Released Date/Time: Dec 10, 2021 07:22 AM Reporting Lab: [place] [facility] [address] [place] [facility] [place] [address] Performing Lab: [place] [facility] [address] [place] [facility] [place] [address] PHOSPHORUS 1.8 L 2.5-5.0 Dec 10, 2021 08:05 AM [place] UREA NITROGEN Specimen Type: PLASMA [facility] Comment: [place] [id number] on Dec 10, 2021@08:31 Tests performed on DineInTime (405) SN:[id number] Ordering Provid er: ISATU TODD Report Released Date/Time: Dec 10, 2021 07:22 AM Reporting Lab: [place] [facility] [address] [place] [facility] [place] [address] Performing Lab: [place] [facility] [address] [place] [facility] [place] [address] UREA NITROGEN 8 7-25 Dec 10, 2021 08:05 AM [place] [facility] GLUCOSE Sp ecimen Type: PLASMA Comment: [place] [id number] on Dec 10, 2021@08:31 Tests performed on DineInTime (405) SN:[id number] Ordering Provid er: ISATU TODD Report Released Date/Time: Dec 10, 2021 07:22 AM Reporting Lab: [place] [facility] [address] [facility] [address] Performing Lab: [place] [facility] [address] [facility] [address] GLUCOSE 144 H 65-100 Dec 10, 2021 08:05 AM [place] [facility] ELECTROLYTES Sp ecimen Type: PLASMA Comment: [place] [id number] on Dec 10, 2021@08:31 Tests performed on DineInTime (405) SN:[id number] Ordering Provid er: ISATU TODD Report Released Date/Time: Dec 10, 2021 07:22 AM Reporting Lab: [place] [facility] [address] [facility] [address] Performing Lab: [place] [facility] [address] [facility] [address] SODIUM 139 135-145 POTASSIUM 3.7 3.5-5.0 CHLORIDE 107 100-110 CARBON DIOXIDE 24 20-30 ANION GAP 8 4-16 Dec 10, 2021 08:05 AM [place] [facility] CALCIUM Sp ecimen Type: PLASMA Comment: [place] [id number] on Dec 10, 2021@08:31 Tests performed on DineInTime (405) SN:[id number] Ordering Provid er: ISATU TODD Report Released Date/Time: Dec 10, 2021 07:22 AM Reporting Lab: [place] [facility] [address] [facility] [address] Performing Lab: [place] [facility] [address] [facility] [address] CALCIUM 8.3 L 8.5-10.5 Dec 10, 2021 08:05 AM [place] [facility] CBC PROFILE Sp ecimen Type: BLOOD No comment enter ed. Ordering Provid er: ISATU TODD Report Released Date/Time: Dec 10, 2021 07:22 AM Reporting Lab: [place] [facility] [address] [facility] [address] Performing Lab: [place] [facility] [address] [facility] [address] WBC 7.0 4.5-11.0 RBC 4.54 4.23-5.66 HGB [...] PLASMA AM [facility] PANEL [place]: [place] [id number] on Dec 10, 2021@08:31 Tests performed on DineInTime (405) SN:[id number] Ordering Provid er: ISATU TODD Report Released Date/Time: Dec 10, 2021 07:22 AM Reporting Lab: [facility] [address] [facility] [address] Performing Lab: [facility] [address] [facility] [address] CREATININE 0.78 0.5-1.5 eGFR(CKD-EPI 2020) >90.0 >60 Dec 09, 2021 06:46 AM [place] [facility] MAGNESIUM Sp ecimen Type: PLASMA Comment: Tests performed on DineInTime (405) SN:[id number] Ordering Provid er: ISATU TODD Report Released Date/Time: Dec 08, 2021 10:23 AM Reporting Lab: [place] [facility] [address] [facility] [address] Performing Lab: [place] [facility] [address] [facility] [address] MAGNESIUM 1.6 1.6-2.6 Dec 09, 2021 [facility] P4 GLU,BUN,CREAT,LYTES,CA Speci men Type: PLASMA 06:46 AM [facility] Comment: Tests performed on DineInTime (405) SN:[id number] Ordering Provid er: ISATU TODD Report Released Date/Time: Dec 08, 2021 05:00 PM Reporting Lab: [facility] [address] [facility] [address] Performing Lab: [facility] [address] [facility] [address] UREA NITROGEN 6 L 7-25 SODIUM 134 L 135-145 POTASSIUM 3.7 3.5-5.0 CHLORIDE 103 100-110 CARBON DIOXIDE 23 20-30 ANION GAP 8 4-16 GLUCOSE 112 H 65-100 CREATININE 0.70 0.5-1.5 CALCIUM 8.1 L 8.5-10.5 eGFR(CKD-EPI 2020) >90.0 >60 Dec 09, 2021 06:46 AM [facility] CBC PROFILE Sp ecimen Type: BLOOD No comment enter ed. Ordering Provid er: ISTAU TODD Report Released Date/Time: Dec 08, 2021 05:00 PM Reporting Lab: [facility] [address] [facility] [address] Performing Lab: [facility] [address] [facility] [address] WBC 7.1 4.5-11.0 RBC 4.40 4.23-5.66 HGB [...] 0-0 Dec 08, 2021 06:39 AM [facility] MAGNESIUM Sp ecimen Type: PLASMA Comment: Testin g Performed on DineInTime (405) SN:[id number] Ordering Provid er: ISATU TODD Report Released Date/Time: Dec 07, 2021 10:32 AM Reporting Lab: [facility] [address] [facility] [address] Performing Lab: [facility] [address] [facility] [address] MAGNESIUM 1.5 L 1.6-2.6 Dec 08, 2021 06:39 AM [facility] CBC PROFILE Sp ecimen Type: BLOOD No comment enter ed. Ordering Provid er: ISATU TODD Report Released Date/Time: Dec 07, 2021 10:32 AM Reporting Lab: [facility] [address] [facility] [address] Performing Lab: [facility] [address] [facility] [address] WBC 8.4 4.5-11.0 RBC 4.75 4.23-5.66 HGB [...] [facility] Comment: Testin g Performed on Pham LuckyLabs (405) SN:[id number] Ordering Provid er: ISATU TODD Report Released Date/Time: Dec 07, 2021 10:32 AM Reporting Lab: [facility] [address] [facility] [address] Performing Lab: [facility] [address] [facility] [address] UREA NITROGEN 6 L 7-25 SODIUM 136 135-145 POTASSIUM 3.3 L 3.5-5.0 CHLORIDE 104 100-110 CARBON DIOXIDE 22 20-30 ANION GAP 10 4-16 GLUCOSE 133 H 65-100 CREATININE 0.76 0.5-1.5 CALCIUM 8.4 L 8.5-10.5 eGFR(CKD-EPI 2020) >90.0 >60 Dec 07, 2021 06:42 [facility] LIVER PROFILE Specimen Typ e: PLASMA AM [facility] Comment: Tests performed on Pham LuckyLabs (405) SN:[id number] Ordering Provid er: PORFIRIO WALTRES Report Released Date/Time: Dec 06, 2021 06:57 PM Reporting Lab: [facility] [address] [facility] [address] Performing Lab: [facility] [address] [facility] [address] PROTEIN, TOTAL 5.7 L 6.0-8.5 ALBUMIN 2.4 L 3.2-5.0 BILIRUBIN, TOTAL 0.4 0.2-1.2 ALKALINE PHOSPHATASE 109 40-150 ALT(SGPT) 10 7-52 AST(SGOT) 15 5-34 FIB-4 SCORE 1.92 <2.67 Dec 07, 2021 [facility] P4 GLU,BUN,CREAT,LYTES,CA Speci men Type: PLASMA 06:42 AM [facility] Comment: Tests performed on DineInTime (405) SN:[id number] Ordering Provid er: PORFIRIO WALTERS Report Released Date/Time: Dec 06, 2021 06:57 PM Reporting Lab: [place] [facility] [address] [facility] [address] Performing Lab: [place] [facility] [address] [facility] [address] UREA NITROGEN 9 7-25 SODIUM 135 135-145 POTASSIUM 3.5 3.5-5.0 CHLORIDE 103 100-110 CARBON DIOXIDE 22 20-30 ANION GAP 10 4-16 GLUCOSE 92 65-100 CREATININE 0.73 0.5-1.5 CALCIUM 8.0 L 8.5-10.5 eGFR(CKD-EPI 2020) >90.0 >60 Dec 07, 2021 06:42 AM [place] CBC PROFILE Specimen Type: BLOOD [facility] No comment enter ed. Ordering Provid er: PORFIRIO WALTERS Report Released Date/Time: Dec 06, 2021 06:57 PM Reporting Lab: [place] [facility] [address] [facility] [address] Performing Lab: [facility] [address] [facility] [address] WBC 5.7 4.5-11.0 RBC 4.15 L 4.23-5.66 [...] [facility] %) AUTOMATED Comment: Tests performed on DineInTime (405) SN:[id number] Ordering Provid er: ISATU TODD Report Released Date/Time: Dec 07, 2021 10:28 AM Reporting Lab: [place] [facility] [address] [facility] [address] Performing Lab: [place] [facility] [address] [facility] [address] RETICULOCYTES (%) AUTOMATED 1.23 0. 6-2.0 RETICULOCYTES (ABS) AUTOMATED 0.052 0.030-0.090 Dec 06, 2021 09:45 [place] MRSA SURVL NARES Specimen Ty pe: NARES PM [facility] DNA No comment enter ed. Ordering Provid er: ALVARO VARGHESE Report Released Date/Time: Dec 07, 2021 02:20 AM Reporting Lab: [place] [facility] [address] [facility] [address] Performing Lab: [place] [facility] [address] [facility] [address] MRSA SURVL NARES DNA NEGATIVE NEGATIVE Dec 06, 2021 06:00 [place] URINALYSIS W/REFLEX TO Speci men Type: URINE PM [facility] CULTURE No comment enter ed. Ordering Provid er: JELANI SÁNCHEZ Report Released Date/Time: Dec 06, 2021 11:57 AM Reporting Lab: [place] [facility] [address] [facility] [address] Performing Lab: [place] [facility] [address] [facility] [address] URINE COLOR Arlin YELLOW SPECIFIC GRAVITY 1.029 [...] 21, RIVER VARIANT Comment: https://www.cdc.gov/coronavirus/2019-ncov/cases-updates/variant- surveillance/variant-info.html The [employer] SARS CoV 2 [employer] Research Assay-GX is a next-generation sequencing (NGS) assa 2021 [facility] SEQUENCING y that determine s the complete genome sequence of the SARS-CoV-2 virus. The assay contains variant-tolerant primers to broaden and improve the coverage for variant detection and increase the sensitivity 12:00 [facility] PNL(WH) of the panel to enable detection from lower viral titer samples. The assay is run on the [employer] Sequencer, which performs automated library preparation, sequencing, analysis, and reporting. PM The sequence an alysis includes determination of viral phylogenetic lineage by comparison to the reference strain Wuhan-Hu-1, GenBank: [id number]. Sequence determination may not be possible owing [...] and its performance characteristics determined by the [facility], which is certified under the Clinical Laboratory Improveme nt Amendments (C MARCO) as qualified to perform high complexity clinical laboratory testing. This test is validated for clinical use at [facility] and should not be regarded as [...] [facility] [address] [facility] [address] Performing Lab: [facility] [address] [facility] [address] SARS-CoV-2 CLADE() 22C (OMICRON) SARS-CoV-2 LINEAGE() BA.2.12.1 Dec 06, 2021 12:00 [facility] COVID-19 AG SCREEN Specimen Type: NASAL CAVITY PM [facility] PANEL BINAX(405) Comment: Testi ng Performed By: Mike Briscoe Ordering Provid er: JELANI SÁNCHEZ Report Released Date/Time: Dec 08, 2021 08:23 AM Reporting Lab: [facility] [address] [facility] [address] Performing Lab: [facility] [address] [facility] [address] COVID-19 AG SCRN(wrj BINAX) POSITIVE HH NE G Dec 06, 2021 12:00 PM [facility] TROPONIN II Sp ecimen Type: PLASMA Comment: Tests performed on Pham [employer] Marketing Officer (405) SN:[id number] Ordering Provid er: JELANI SÁNCHEZ Report Released Date/Time: Dec 06, 2021 11:57 AM Reporting Lab: [facility] [address] [facility] [address] Performing Lab: [facility] [address] [facility] [address] TROPONIN II 0.03 0.00-0.29 Dec 06, 2021 [place] P4 GLU,BUN,CREAT,LYTES,CA Speci men Type: PLASMA 12:00 PM [facility] Comment: Testin g Performed on Pham [employer] Officer (405) SN:[id number] Ordering Provid er: JELANI SÁNCHEZ Report Released Date/Time: Dec 06, 2021 11:57 AM Reporting Lab: [place] [facility] [address] [facility] [address] Performing Lab: [place] [facility] [address] [facility] [address] UREA NITROGEN 13 7-25 SODIUM 138 135-145 POTASSIUM 3.8 3.5-5.0 CHLORIDE 103 100-110 CARBON DIOXIDE 23 20-30 ANION GAP 12 4-16 GLUCOSE 105 H 65-100 CREATININE 0.90 0.5-1.5 CALCIUM 8.7 8.5-10.5 eGFR(CKD-EPI 2020) >90.0 >60 Dec 06, 2021 12:00 PM [facility] LIVER PROFILE Sp ecimen Type: PLASMA Comment: Testin g Performed on Pham [employer] Marketing Officer (405) SN:[id number] Ordering Provid er: JELANI SÁNCHEZ Report Released Date/Time: Dec 06, 2021 11:57 AM Reporting Lab: [facility] [address] [facility] [address] Performing Lab: [facility] [address] [facility] [address] PROTEIN, TOTAL 6.6 6.0-8.5 ALBUMIN 2.8 L 3.2-5.0 BILIRUBIN, TOTAL 0.6 0.2-1.2 ALKALINE PHOSPHATASE 134 40-150 ALT(SGPT) 13 7-52 AST(SGOT) 18 5-34 FIB-4 SCORE 1.94 <2.67 Dec 06, 2021 12:00 PM [facility] BNP(P) Sp ecimen Type: PLASMA Comment: Tests performed on Pham Chief Marketing Officer (405) [id number] Ordering Provid er: JELANI SÁNCHEZ Report Released Date/Time: Dec 06, 2021 11:57 AM Reporting Lab: [facility] [address] [facility] [address] Performing Lab[facility] [address] [facility] [address] BNP(P) 224.8 H 10-100 Dec 06, 2021 [facility] COVID-19+FLU/RSV DIAGNOSTIC Spe cimen Type: NASOPHARYNX 12:00 PM [facility] PANEL(405) Comment: Tests performed on [employer] Gen[employer]pert (405) Critical results called to and read back by: ALESHIA WILKINSON RN 12/06/21 @ 1312 Ordering Provid er: JELANI SÁNCHEZ Report Released Date/Time: Dec 06, 2021 11:57 AM Reporting Lab: [facility] [address] [facility] [address] Performing Lab: [place] [facility] [address] [facility] [address] FLU A(PCR) NEGATIVE NEGATIVE FLU B(PCR) NEGATIVE NEGATIVE RSV(PCR) NEGATIVE NEGATIVE COVID-19([id number]) DETECTED HH NO T DETECTED Dec 06, 2021 12:00 PM [facility] Sp ecimen Type: BLOOD No comment enter ed. Ordering Provid er: JELANI SÁNCHEZ Report Released Date/Time: Dec 06, 2021 11:57 AM Reporting Lab: [facility] [address] [facility] [address] Performing Lab: [facility] [address] [facility] [address] WBC 7.2 4.5-11.0 RBC 4.86 4.23-5.66 HGB [...] WHITE 2021 11:00 /min mm[Hg] [facility] PM [facility] [facility] Dec 07, 95 144/57 18 /min 98 % 0 WHITE 2021 03:08 /min mm[Hg] RIVER PM T [facility] Dec 07, 96.3 F WHITE 2021 06:07 RIVER AM [facility] Dec 07, 88 141/85 16 /min 95 % 0 WHITE 2021 06:03 /min mm[Hg] RIVER AM [facility] Dec 07, 6 WHITE 2021 12:47 RIVER AM [facility] Social History: Smoking Status (Most current) [...] place. Date/Time Smoking Status/Tobacco Use Comment [facility] Apr 01, 2020 01:16 PM QUIT TOBACCO [...] IN PAST YEAR CAREY DOYLE [facility] May 01, 2016 03:11 PM QUIT TOBACCO USE IN PAST YEAR CAREY DOYLE [facility] May 01, 2016 11:19 AM QUIT TOBACCO USE IN PAST YEAR CAREY DOYLE [facility] Mar 16, 2016 12:50 PM V1-PT DECLINES REF TO TOBACCO CAREY DOYLE [facility] CESS PRGM Mar 16, 2016 12:50 PM V1-PT THINKING ABOUT QUIT CAREY DOYLE [facility] TOBACCO USE Aug 12, 2015 08:48 AM CURRENT SMOKER CAREY Yates [facility] Radiology Reports: +/- 30 days of [...] the Encounter. The data comes from all [place] treatment facilities. Date/Time Radiology Report Provider Source Dec 13, 2021 12:57 PM MRI ABDOMEN W/WO CONTRAST: MARYELLEN LONG LUCAS LARES N [id number] -1950 [facility] Exm Date: DEC 13, 2021@12:57 Req Phys: ISATU TODD Loc: OP Unknown/0 12-15-2021@13:20 Img Loc: MRI IMAGING (OOS) Service: ZZGENERAL MEDICINE (Case [id number] COMPLETE) MRI ABDOMEN W/WO CONTRAST (M RI Detailed) CPT:79428 Reason for Study: further characterization of a [...] new lyphadenopathy REQUESTING MD: Isatu Todd PAGER: [phone] PHONE: [phone] Weight: 232.2 lb [105.32 kg] (12/12/2021 05:00) [...] patient will need to arrange for a waste collection driver to take him/her home after the [...] 15, 2021 Date Verified: DEC 15, 2021 Lock Master E-Sig:/ES/MARYELLEN LONG Report: MRI ABDOMEN W/WO CONTRAST [...] MALIGNANCY Primary Interpreting Staff: Staff AMELIA THOMAS (Lock Master) / Dec 10, 2021 09:[address] ABDOMEN & PELVIS: [facility] KALYANILUCSA N [id number] -1950 [facility] Exm Date: DEC 10, 2021@09:30 Req Phys: ISATU OTDD Loc: 1S MED/12-10@10:57 Img Loc: CT SCAN (OOS) Service: [facility] MEDICINE (Case [id number] COMPLETE) CT ABD & PELVIS WITHOUT CONT RAST (CT Detailed) CPT:09097 Reason for Study: 71 yo male with [...] INDEX - NO HEIGHTS FOUND Pager number: [phone] STAT orders MUST be call ed to RADIOLOGY [phone] to speak to the appropriate body technician. Report Status: Verified Date Reported: DEC 10, 2021 Date Verified: DEC 10, 2021 Lock Master E-Sig: Report: EXAM: CT abdomen and pelvis [...] ph nodes. READING PHYSICIAN: Ramone Munoz D.O. [phone] 12/10/2021 10:55 EDT [facility] National Teleradiology Program [phone] (For Medical Practitioner Use Only ) [address], [facility] [address], [address] [place] [address] Attention Patients / Veterans: If you have ques tions or concerns about these test results, please contact your o rdering provider or primary care team. Primary Diagnostic Code: SIGNIFICANT ABNORMALIT Y, ATTN NEEDED Primary Interpreting Staff: RADIOLOGY,OUTSIDE SERVICE, Staff Physician / Dec 09, 2021 07:34 AM BASW (MODIFIED): JESSIE CHENEY [facility] LUCAS MEEK N [id number] -1950 M [facility] Exm Date: DEC 09, 2021@07:34 Req Phys: ISATU TODD Loc: 1S /12-09@11:26 Img Loc: XRAY (OOS) Service: [facility] MEDICINE (Case [id number] COMPLETE) BASW (MODIFIED) (RAD Detaile d) CPT:79928 Contrast Media : Barium Reason for Study: dysphagia ?esophageal spasm Clinical History: Report Status: Verified Date Reported: DEC 09, 2021 Date Verified: DEC 09, 2021 Lock Master E-Sig:/ES/JESSIE CHENEY Report: BASPrincess (MODIFIED) , 12/09/2021 [...] REQUIRED Primary Interpreting Staff: JESSIE CHENEY, RADIOLOGIST (Lock Master) /TLC Dec 06, 2021 12:[address] CHEST (INCLUDES ADRENALS): JESSIE CHENEY [facility] LUCAS MEEK N [id number] -1950 M [facility] Exm Date: DEC 06, 2021@12:59 Req Phys: GONZALOJLEANI ORLANDO Loc: [facility] ED DAYS M 1RD (Req'g Loc) Img Loc: CT SCAN (OOS) Service: Unknown (Case [id number] COMPLETE) CT THORAX W/O CONT (CT Detai led) CPT:65233 Reason for Study: Opacification right chest Clinical History: No contrast allergy BUN: 13 (12/06/21 12:00) CREATI: 0.90 (12/06/21 12:00) eGFR 05/16/21 09:43 52 L Weight: 232.6 lb [105.51 kg] (12/06/2021 11:40) BODY MASS INDEX - NO HEIGHTS FOUND Pager number: [phone] STAT orders MUST be called t o RADIOLOGY [phone] to speak to the appropriate body technician. Indications - Other: Opacification right chest, covid positive, lung cancer histo Report Status: Verified Date Reported: DEC 06, 2021 Date Verified: DEC 06, 2021 Lock Master E-Sig:/ES/JESSIE CHENEY Report: CT THORAX W/O CONT [...] REQUIRED Primary Interpreting Staff: JESSIE CHENEY, RADIOLOGIST (Lock Master) Primary Interpreting Resident: PRINCE CHAMPION, Resident /BR Dec 06, 2021 11:58 AM CHEST SINGLE VIEW: JESSIE CHENEY LUCAS MEEK Lei [id number] -1950 M [facility] Exm Date: DEC 06, 2021@11:58 Req Phys: JELANI SÁNCHEZ Pat Loc: [facility] ED DAYS M 1RD (Req'g Loc) Img Loc: XRAY (OOS) Service: Unknown (Case [id number] COMPLETE) CHEST SINGLE VIEW (RAD Detai led) CPT:29214 Proc Modifiers : PORTABLE EXAM Reason for Study: SOB, home covid test positive Clinical History: Report Status: Verified Date Reported: DEC 06, 2021 Date Verified: DEC 06, 2021 Lock Master E-Sig:/ES/JESSIE CHENEY Report: Exam type: Chest x-ray [...] REQUIRED Primary Interpreting Staff: JESSIE CHENEY, RADIOLOGIST (Lock Master) /TLC Pathology Reports: +/- 30 days of [...] the Encounter. The data comes from all [place] treatment facilities. Date/Time Pathology Report Provider Source Jan 03, 2022 10:28 AM LR SURGICAL PATHOLOGY REPORT: STEFANY MILLER [place] LOCAL TITLE: LR SURGICAL PATHOLOGY REPORT [facility] STANDARD TITLE: PATHOLOGY REPORT DATE OF NOTE: JAN 03, 2022@10:28:01 ENTRY DATE: JAN 03, 2022@10:28:01 AUTHOR: NIURKA MILLER EXP COSIGNER: URGENCY: STATUS: COMPLETED $APHDR Reporting Lab: CAREY DOYLE [facility] [CLIA# [id number]] [address] [place] [address] - - - - - - [...] automatically d ocumented from SURGERY package case #[id number] Field (#32) PRINCIPAL PRE-OP DIAGNOSIS, (#.72) OTHER [...] automatically d ocumented from SURGERY package case #[id number] Field (#34) PRINCIPAL POST-OP DIAG, (#.74) OTHER [...] Label: Lucas Meek Paperwork: Lucas Meek Cassette: [id number];..;KALYANI;.;405;[id number] Specimen is labeled: ES bx Received in formalin are several pieces of pale boyd and brown tissue, 1.2 x 0.7 cm in aggregate. Submitted entirely in 1 cassette [id number];..;KALYANI;.;405;[id number] SAW 12/15/2021 Microscopic exam: *+* MODIFIED REPORT *+* (Last modified: JAN 03, 2022@09:30:20 typed by NIURKA WADDELL) DIAGNOSIS: A. 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 Kendell long. TIARA Coombs was notified on 12/21/21. Modified on 01/03/22 to include report from [facility] stating that tumor is NEGATIVE for her2/ matheus amplification. The attending pathologist who signature mansoor ears on this report has reviewed all diagnostic slides and has edited t he gross and/or microscopic portion of this report in rendering the final pathologic diagnosis. [address] [address] CPT: 77157 /emely/ NIURKA Yeung MD Signed Jan 03, 2022@10:28 Performing Laboratory: Surgical Pathology Report Performed By: CAREY MONTOYA [facility] [CLIA# [id number]] [address] [place] [address] $FTR - - - - - [...] - - LUCAS MEEK STANDARD FORM 515 ID:[id number] SEX:M :1950 AGE: 71 LOC: SDM END PCP: Isatu Todd /emely/ NIURKA MILLER Staff Signed: 01/03/2022 10:28 Dec 21, 2021 11:46 AM LR SURGICAL PATHOLOGY REPORT: STEFANY MILLER [place] LOCAL TITLE: LR SURGICAL PATHOLOGY REPORT [facility] STANDARD TITLE: PATHOLOGY REPORT DATE OF NOTE: DEC 21, 2021@11:46:59 ENTRY DATE: DEC 21, 2021@11:46:59 AUTHOR: NIURKA MILLER EXP COSIGNER: URGENCY: STATUS: COMPLETED $APHDR Reporting Lab: CAREY DOYLE [facility] [CLIA# [id number]] [address] [place] [address] - - - - - - [...] automatically d ocumented from SURGERY package case #[id number] Field (#32) PRINCIPAL PRE-OP DIAGNOSIS, (#.72) OTHER [...] automatically d ocumented from SURGERY package case #[id number] Field (#34) PRINCIPAL POST-OP DIAG, (#.74) OTHER [...] Label: Lucas Meek Paperwork: Lucas Meek Cassette: [id number];..;KALYANI;.;405;[id number] Specimen is labeled: ES bx Received in formalin are several pieces of pale boyd and brown tissue, 1.2 x 0.7 cm in aggregate. Submitted entirely in 1 cassette [id number];..;KALYANI;.;405;[id number] SAW 12/15/2021 Microscopic exam: DIAGNOSIS: A. 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 Kendell long. TIARA Coombs was notified on 12/21/21. The attending pathologist who signature mansoor ears on this report has reviewed all diagnostic slides and has edited t he gross and/or microscopic portion of this report in rendering the final pathologic diagnosis. [address] [address] CPT: 65749 /emely/ NIURKA Yeung MD Signed Dec 21, 2021@11:46 Performing Laboratory: Surgical Pathology Report Performed By: [facility] [CLIA# [id number]] [address] [place] [address] $FTR - - - - - [...] - - - - - - LUCAS EMEK STANDARD FORM 515 ID:[id number] SEX:M :1950 AGE: 71 LOC: [facility] END PCP: Isatu Todd /charmaine Yeung MD Signed: 12/21/2021 11:46 Dec 06, 2021 03:30 PM LR MICROBIOLOGY REPORT: [facility] Reporting Lab: [facility] [CLIA# [id number]] [address] [place] [address] Accession [UID]: [id number] [[id number]] Receiv ed: Dec 06, 2021@16:14 Collection sample: BLOOD CUL T BOTTLE(NIRMAL/AERO)Collection date: Dec 06, 2021 15:30 Site/Specimen: BLOOD Provider: JELANI SÁNCHEZ Comment on specimen: LAC Test(s) ordered: BLOOD CULTURE ANAEROBI C....... completed: Dec 12, 2021 06:18 * BACTERIOLOGY FINAL REPORT => Dec 12, 2021 06:1 8 TECH CODE: [id number] Bacteriology Remark(s): NO GROWTH IN 5 DAYS =--=--=--=--=--=--=--=--=--=--=--=--=--= --=--=--=--=--=--=--=--=--=--=--=--=-- Performing Laboratory: Bacteriology Report Performed By: [facility] [CLIA# [id number]] [address] [place] [address] Dec 06, 2021 03:30 PM LR MICROBIOLOGY REPORT: [facility] Reporting Lab: [facility] [CLIA# [id number]] [address] [place] [address] Accession [UID]: [id number] [[id number]] Receiv ed: Dec 06, 2021@16:14 Collection sample: BLOOD CUL T BOTTLE(NIRMAL/AERO)Collection date: Dec 06, 2021 15:30 Site/Specimen: BLOOD Provider: JELANI SÁNCHEZ Comment on specimen: LAC Test(s) ordered: BLOOD CULTURE AEROBIC. ........ completed: Dec 12, 2021 06:17 * BACTERIOLOGY FINAL REPORT => Dec 12, 2021 06:1 7 TECH CODE: [id number] Bacteriology Remark(s): NO GROWTH IN 5 DAYS =--=--=--=--=--=--=--=--=--=--=--=--=--= --=--=--=--=--=--=--=--=--=--=--=--=-- Performing Laboratory: Bacteriology Report Performed By: [facility] [CLIA# [id number]] [address] [facility] [place] [address]
--- OUTSIDE RECORDS SUMMARY | 2022-01-19 08:19 | XMS_ITS ---
DAILY HOSPITALIZATION DATA [facility] Encounter Summary Created on:December 07, 2021 Patient:LUCAS MEEK Sex:Male :1950 Author Organization [facility] Address [address] [place] [id number] Support Name Relationship Address Phone YUSRA MEEK Unavailable [address] [place] [address] YUSRA MEEK Unavailable [address] [place] [facility] [place] [address] CLAY MOSLEY Unavailable Unavailable SJ SANTACRUZ Unavailable [...] MEDICARE MEDICARE PART Jun 18, PART A [id number] DO KALYANI PATIENT (WNR) (M) A 2016 13A 1 [place]AS MEDICARE MEDICARE PART Jun 18, PART B [id number] DO KALYANI PATIENT (WNR) (M) B 2017 13A 1 [place] MEDICARE MEDICARE PART Jun 18, PART B [id number] KALYANIDO PATIENT (WNR) (M) B 2017 VH81 2 [place] MEDICARE MEDICARE PART Jun 18, PART A [id number] DO KALYANI PATIENT (WNR) (M) A 2017 VH81 2 [place] UNITED MEDICARE MCR(W Jun 18 [id number] Luz MEEK PATIENT HEALTHCARE ADVANTAGE NR) 2021 37 0 [facility] (WNR) Selected Encounter This section includes the information on record at [place] for the Encounter. Date/Time Encounter Type Encounter Description Reason Provider Source Dec 07, 2021 11:28 Inpatient Visit DAILY HOSPITALIZATION DATA AM [facility] Encounter Template Text not used by [place] Plan of Treatment: Future Appointments (+ 6 months) and Future Tests (+/- 45 days) The Plan of Treatment section includes future care activities for the patient from all [place] treatmentfacilities. This section includes future appointments and [...] [place] [facility] Jan 06, 2022 02:00 PM [place] [facility]3] Jan 10, 2022 11:30 AM [facility] Jan 24, 2022 08:00 [place] [facility]3] Feb 21, 2022 10:00 AM [place]UL[place]ORY [place] [facility] Mar 21, 2022 10:30 AM [facility] Active, Pending, and Scheduled [...] the Encounter. The data comes from all [place] treatment [facility]. Test Date/Time Test Type Test Details Facility Name October 31, 2021 07:37 AM Consult Order [facility] Cons Automation Operator's Choice November 15, 2021 10:37 AM Consult Order [facility] Cons Automation Operator's Choice Dec 06, 2021 12:52 PM [place]acy [place] In[place] Order [facility]3] Dec 06, 2021 03:24 PM Pharmacy - [place] Order [facility]3] Dec 06, 2021 03:40 PM Pharmacy - [place] Order [facility]3] Dec 15, 2021 08:41 AM Consult Order SPEECH PATHOLOGY [place] OUTPAT[place] Cons [facility]3] Automation Operator's Choice Jan 15, 2022 10:08 PM Consult Order [facility] Cons Automation Operator's Choice Lab Results: +/- 30 days [...] Reference Range Comment Dec 15, 2021 [place] P4 GLU,BUN,CREAT,LYTES,CA Speci men Type: PLASMA 06:43 AM [facility] Comment: Tests performed on Lala (405) SN:[id number] Ordering Provid er: ISATU TODD Report Released Date/Time: Dec 11, 2021 07:42 AM Reporting Lab: [facility] [address] [facility] [address] Performing Lab: [facility] [address] [facility] [address] UREA NITROGEN 9 7-25 SODIUM 137 135-145 POTASSIUM 3.8 3.5-5.0 CHLORIDE 105 100-110 CARBON DIOXIDE 26 20-30 ANION GAP 6 4-16 GLUCOSE 102 H 65-100 CREATININE 0.64 0.5-1.5 CALCIUM 8.1 L 8.5-10.5 eGFR(CKD-EPI 2020) >90.0 >60 Dec 15, 2021 06:43 AM [facility] CBC PROFILE Sp ecimen Type: BLOOD No comment enter ed. Ordering Provid er: ISATU TODD Report Released Date/Time: Dec 10, 2021 07:22 AM Reporting Lab: [facility] [address] [facility] [address] Performing Lab: [facility] [address] [facility] [address] WBC 5.7 4.5-11.0 RBC 4.22 L 4.23-5.66 [...] ABSOLUTE NRBC 0.00 0-0 Dec 14, 2021 [facility] CYTOGENETIC Specimen Type: ESOPHAGUS 02:59 PM [facility] FISH([facility] Comment: ~For T est: CYTOGENETIC FISH([facility]) ~FISH HER 2 NUE, FFPE See full report in Audience Image display viewer/tab#LAB-Reference Ordering Provid er: NIURKA MILLER Report Released Date/Time: Dec 21, 2021 12:11 PM Reporting Lab: [facility] [address] [facility] [address] Performing Lab: [facility] CYTOGENETIC FISH([facility]) comment Dec 14, 2021 [facility] P4 GLU,BUN,CREAT,LYTES,CA Speci men Type: PLASMA 06:27 AM [facility]3] Comment: Tests performed on Lala (405) SN:[id number] Ordering Provid er: ISATU TODD Report Released Date/Time: Dec 11, 2021 07:42 AM Reporting Lab: [facility] [address] [facility] [address] Performing Lab: [facility] [address] [facility] [address] UREA NITROGEN 10 7-25 SODIUM 137 135-145 [...] Reporting Lab: [facility] [address] [facility] [address] Performing Lab: [facility] [address] [facility] [address] WBC 6.0 4.5-11.0 RBC 4.29 4.23-5.66 HGB [...] ABSOLUTE NRBC 0.00 0-0 Dec 13, 2021 [facility] P4 GLU,BUN,CREAT,LYTES,CA Speci men Type: PLASMA 06:34 AM [facility]3] Comment: Tests performed on Lala (405) SN:[id number] Ordering Provid er: ISATU TODD Report Released Date/Time: Dec 11, 2021 07:42 AM Reporting Lab: [facility] [address] [facility] [address] Performing Lab: [facility] [address] [facility] [address] UREA NITROGEN 12 7-25 SODIUM 136 135-145 [...] Reporting Lab: [facility] [address] [facility] [address] Performing Lab: [facility] [address] [facility] [address] WBC 5.6 4.5-11.0 RBC 4.28 4.23-5.66 HGB [...] ABSOLUTE NRBC 0.00 0-0 Dec 12, 2021 [facility] P4 GLU,BUN,CREAT,LYTES,CA Speci men Type: PLASMA 06:21 AM [facility]3] Comment: Tests performed on Lala (405) SN:[id number] Ordering Provid er: ISATU TODD Report Released Date/Time: Dec 11, 2021 07:42 AM Reporting Lab: [facility] [address] [facility] [address] Performing Lab: [facility] [address] [facility] [address] UREA NITROGEN 11 7-25 SODIUM 139 135-145 [...] Dec 10, 2021 07:22 AM Reporting Lab: [facility] [address] [facility] [address] Performing Lab: [facility] [address] [facility] [address] WBC 5.5 4.5-11.0 RBC 4.37 4.23-5.66 HGB [...] 0.00 0-0 Dec 12, 2021 06:00 AM olookT [facility] MAGNESIUM Sp ecimen Type: PLASMA Comment: Testin g Performed on Lala (405) SN:[id number] Ordering Provid er: ISATU TODD Report Released Date/Time: Dec 12, 2021 08:24 AM Reporting Lab: [place] WebeeT [facility] [address] [facility] [address] Performing Lab: [facility] [place] WebeeT HydrelisMROC [address] [facility] [address] MAGNESIUM 1.8 1.6-2.6 Dec 12, 2021 06:00 AM olookT HydrelisMROC PHOSPHORUS Sp ecimen Type: PLASMA Comment: Testin g Performed on Lala (405) SN:[id number] Ordering Provid er: ISATU TODD Report Released Date/Time: Dec 12, 2021 08:24 AM Reporting Lab: [place] WebeeT [facility] [address] [facility] [address] Performing Lab: [place] WebeeT HydrelisMROC [address] [facility] [address] PHOSPHORUS 3.1 2.5-5.0 Dec 11, 2021 06:15 AM [facility] [place] WebeeT HydrelisMROC ELECTROLYTES Sp ecimen Type: PLASMA Comment: Tests performed on Lala (405) SN:[id number] Ordering Provid er: ISATU TODD Report Released Date/Time: Dec 10, 2021 07:22 AM Reporting Lab: [place] WebeeT [facility] [address] [facility] [address] Performing Lab: [place] [facility]bee[facility] [address] [facility] [address] SODIUM 137 135-145 POTASSIUM 4.3 3.5-5.0 CHLORIDE 108 100-110 CARBON DIOXIDE 20 20-30 ANION GAP 9 4-16 Dec 11, 2021 06:15 AM [place] SvpplyT [facility] CBC PROFILE Sp ecimen Type: BLOOD Comment: Result s checked Ordering Provid er: ISATU TODD Report Released Date/Time: Dec 10, 2021 07:22 AM Reporting Lab: [place] OMEGAT [facility] [address] [facility] [address] Performing Lab: [place] OMEGAT [facility] [address] [facility] [address] WBC 5.8 4.5-11.0 RBC 4.37 4.23-5.66 HGB [...] 0.00 0-0 Dec 11, 2021 06:00 AM [facility] PHOSPHORUS Sp ecimen Type: PLASMA Comment: Tests performed on Lala (460) SN:[id number] Results checked Ordering Provid er: ISATU TODD Report Released Date/Time: Dec 11, 2021 07:44 AM Reporting Lab: [facility] [facility] [address] [facility] [address] Performing Lab: [place] OMEGAT NDMROC [address] [facility] [address] PHOSPHORUS 3.0 2.5-5.0 Dec 10, 2021 08:05 AM [place] [facility] PHOSPHORUS Sp ecimen Type: PLASMA Comment: [place] [id number] on Dec 10, 2021@08:31 Tests performed on Lala (405) SN:[id number] Ordering Provid er: ISATU TODD Report Released Date/Time: Dec 10, 2021 07:22 AM Reporting Lab: [place] [facility] [address] [place] [facility] [place] [place] [address] Performing Lab: [place] [facility] [address] [place] [facility] [place] [address] PHOSPHORUS 1.8 L 2.5-5.0 Dec 10, 2021 08:05 AM [place] [facility] MAGNESIUM Sp ecimen Type: PLASMA Comment: [place] [id number] on Dec 10, 2021@08:31 Tests performed on Lala (405) SN:[id number] Ordering Provid er: ISATU TODD Report Released Date/Time: Dec 10, 2021 07:22 AM Reporting Lab: [place] [facility] [address] [place] [facility] [place] [address] Performing Lab: [place] [facility] [address] [place] [facility] [place] [address] MAGNESIUM 1.7 1.6-2.6 Dec 10, 2021 08:05 AM [place] UREA NITROGEN Specimen Type: PLASMA [facility] Comment: [place] [id number] on Dec 10, 2021@08:31 Tests performed on Lala (405) SN:[id number] Ordering Provid er: ISATU TODD Report Released Date/Time: Dec 10, 2021 07:22 AM Reporting Lab: [place] [facility] [address] [place] [facility] [place] [address] Performing Lab: [place] [facility] [address] [place] [facility] [place] [address] UREA NITROGEN 8 7-25 Dec 10, 2021 08:05 AM [place] [facility] GLUCOSE Sp ecimen Type: PLASMA Comment: [place] [id number] on Dec 10, 2021@08:31 Tests performed on Lala (405) SN:[id number] Ordering Provid er: ISATU TODD Report Released Date/Time: Dec 10, 2021 07:22 AM Reporting Lab: [place] [facility] [address] [facility] [address] Performing Lab: [facility] [address] [facility] [address] GLUCOSE 144 H 65-100 Dec 10, 2021 08:05 AM [place] [facility] CALCIUM Sp ecimen Type: PLASMA Comment: [place] [id number] on Dec 10, 2021@08:31 Tests performed on Lala (405) SN:[id number] Ordering Provid er: ISATU TODD Report Released Date/Time: Dec 10, 2021 07:22 AM Reporting Lab: [place] [facility] [address] [facility] [address] Performing Lab: [facility] [address] [facility] [address] CALCIUM 8.3 L 8.5-10.5 Dec 10, 2021 08:05 AM [place] [facility] CBC PROFILE Sp ecimen Type: BLOOD No comment enter ed. Ordering Provid er: ISATU TODD Report Released Date/Time: Dec 10, 2021 07:22 AM Reporting Lab: [facility] [facility] [address] [facility] [address] Performing Lab: [facility] [place] [facility] [address] [facility] [address] WBC 7.0 4.5-11.0 RBC 4.54 4.23-5.66 HGB [...] PLASMA AM [facility] PANEL [place]: [place] [id number] on Dec 10, 2021@08:31 Tests performed on Lala (405) SN:[id number] Ordering Provid er: ISATU TODD Report Released Date/Time: Dec 10, 2021 07:22 AM Reporting Lab: [place] [facility] [address] [facility] [address] Performing Lab: [place] [facility] [address] [facility] [address] CREATININE 0.78 0.5-1.5 eGFR(CKD-EPI 2020) >90.0 >60 Dec 10, 2021 08:05 AM [place] [facility] ELECTROLYTES Sp ecimen Type: PLASMA Comment: [place] [id number] on Dec 10, 2021@08:31 Tests performed on Lala (405) SN:[id number] Ordering Provid er: ISATU TODD Report Released Date/Time: Dec 10, 2021 07:22 AM Reporting Lab: [place] [facility] [address] [facility] [address] Performing Lab: [place] [facility] [address] [facility] [address] SODIUM 139 135-145 POTASSIUM 3.7 3.5-5.0 CHLORIDE 107 100-110 CARBON DIOXIDE 24 20-30 ANION GAP 8 4-16 Dec 09, 2021 06:46 AM [place] [facility] MAGNESIUM Sp ecimen Type: PLASMA Comment: Tests performed on Lala (405) SN:[id number] Ordering Provid er: ISATU TODD Report Released Date/Time: Dec 08, 2021 10:23 AM Reporting Lab: [place] [facility] [address] [facility] [address] Performing Lab: [place] [facility] [address] [facility] [address] MAGNESIUM 1.6 1.6-2.6 Dec 09, 2021 [facility] P4 GLU,BUN,CREAT,LYTES,CA Speci men Type: PLASMA 06:46 AM [facility]] Comment: Tests performed on Lala (405) SN:[id number] Ordering Provid er: ISATU TODD Report Released Date/Time: Dec 08, 2021 05:00 PM Reporting Lab: [facility] [address] [facility] [address] Performing Lab: [facility] [address] [facility] [address] UREA NITROGEN 6 L 7-25 SODIUM 134 [...] Reporting Lab: [facility] [address] [facility] [address] Performing Lab: [facility] [address] [facility] [address] WBC 7.1 4.5-11.0 RBC 4.40 4.23-5.66 HGB [...] 0.00 0-0 Dec 08, 2021 06:39 AM [place] [employer] T [facility] MAGNESIUM Sp ecimen Type: PLASMA Comment: Testin g Performed on Lala (405) SN:[id number] Ordering Provid er: ISATU TODD Report Released Date/Time: Dec 07, 2021 10:32 AM Reporting Lab: [facility] [address] [facility] [address] Performing Lab: [facility] [address] [facility] [address] MAGNESIUM 1.5 L 1.6-2.6 Dec 08, 2021 [place] [employer] T P4 GLU,BUN,CREAT,LYTES,CA Speci men Type: PLASMA 06:39 AM [facility] Comment: Testin g Performed on Lala (405) SN:[id number] Ordering Provid er: ISATU TODD Report Released Date/Time: Dec 07, 2021 10:32 AM Reporting Lab: [employer] T [facility] [address] [facility] [address] Performing Lab: [facility] [address] [facility] [address] UREA NITROGEN 6 L 7-25 SODIUM 136 135-145 POTASSIUM 3.3 L 3.5-5.0 CHLORIDE 104 100-110 CARBON DIOXIDE 22 20-30 ANION GAP 10 4-16 GLUCOSE 133 H 65-100 CREATININE 0.76 0.5-1.5 CALCIUM 8.4 L 8.5-10.5 eGFR(CKD-EPI 2020) >90.0 >60 Dec 08, 2021 06:39 AM WH[place] [employer] T [facility] CBC PROFILE Sp ecimen Type: BLOOD No comment enter ed. Ordering Provid er: ISATU TODD Report Released Date/Time: Dec 07, 2021 10:32 AM Reporting Lab: [facility] [address] [facility] [address] Performing Lab: [facility] [address] [facility] [address] WBC 8.4 4.5-11.0 RBC 4.75 4.23-5.66 HGB [...] ABSOLUTE NRBC 0.00 0-0 Dec 07, 2021 [facility] P4 GLU,BUN,CREAT,LYTES,CA Speci men Type: PLASMA 06:42 AM [facility]] Comment: Tests performed on Lala (405 SN:[id number] Ordering Provid er: PORFIRIO WALTERS Report Released Date/Time: Dec 06, 2021 06:57 PM Reporting Lab: [facility] [address] [facility] [address] Performing Lab: [facility] [address] [facility] [address] UREA NITROGEN 9 7-25 SODIUM 135 135-145 POTASSIUM 3.5 3.5-5.0 CHLORIDE 103 100-110 CARBON DIOXIDE 22 20-30 ANION GAP 10 4-16 GLUCOSE 92 65-100 CREATININE 0.73 0.5-1.5 CALCIUM 8.0 L 8.5-10.5 eGFR(CKD-EPI 2020) >90.0 >60 Dec 07, 2021 06:42 [place] LIVER PROFILE Specimen Typ e: PLASMA AM VAOC Comment: Tests performed on Me-Mover Sweater Designer (405) SN:[id number] Ordering Provid er: PORFIRIO WALTERS Report Released Date/Time: Dec 06, 2021 06:57 PM Reporting Lab: [facility] [address] [facility] [address] Performing Lab: [facility] [address] [facility] [address] PROTEIN, TOTAL 5.7 L 6.0-8.5 ALBUMIN 2.4 L 3.2-5.0 BILIRUBIN, TOTAL 0.4 0.2-1.2 ALKALINE PHOSPHATASE 109 40-150 ALT(SGPT) 10 7-52 AST(SGOT) 15 5-34 FIB-4 SCORE 1.92 <2.67 Dec 07, 2021 06:42 AM [place] [facility] CBC PROFILE Specimen Type: BLOOD [facility]] No comment enter ed. Ordering Provid er: PORFIRIO WALTERS Report Released Date/Time: Dec 06, 2021 06:57 PM Reporting Lab: [facility] [address] [facility] [address] Performing Lab: [facility] [address] [facility] [address] WBC 5.7 4.5-11.0 RBC 4.15 L 4.23-5.66 [...] VAMROC %) AUTOMATED Comment: Tests performed on Lala (405) SN:[id number] Ordering Provid er: ISATU TODD Report Released Date/Time: Dec 07, 2021 10:28 AM Reporting Lab: [place] [facility] [address] [facility] [address] Performing Lab: [place] [facility] [address] [facility] [address] RETICULOCYTES (%) AUTOMATED 1.23 0. 6-2.0 RETICULOCYTES (ABS) AUTOMATED 0.052 0.030-0.090 Dec 06, 2021 09:45 [place] MRSA SURVL NARES Specimen Ty pe: NARES PM [facility] DNA No comment enter ed. Ordering Provid er: ALVARO VARGHESE Report Released Date/Time: Dec 07, 2021 02:20 AM Reporting Lab: [place] [facility] [address] [facility] [address] Performing Lab: [place] [facility] [address] [facility] [address] MRSA SURVL NARES DNA NEGATIVE NEGATIVE Dec 06, 2021 06:00 [place] URINALYSIS W/REFLEX TO Speci men Type: URINE PM [facility] CULTURE No comment enter ed. Ordering Provid er: JELANI SÁNCHEZ Report Released Date/Time: Dec 06, 2021 11:57 AM Reporting Lab: [place] [facility] [address] [facility] [address] Performing Lab: [place] [facility] [address] [facility] [address] URINE COLOR Arlin YELLOW SPECIFIC GRAVITY 1.029 [...] 21, RIVER VARIANT Comment: https://www.cdc.gov/coronavirus/2019-ncov/cases-updates/variant- surveillance/variant-info.html The [employer] SARS CoV 2 IPLogic Research Assay-GX is a next-generation sequencing (NGS) assa 2021 [facility] SEQUENCING y that determine s the complete genome sequence of the SARS-CoV-2 virus. The assay contains variant-tolerant primers to broaden and improve the coverage for variant detection and increase the sensitivity 12:00 [facility] PNL(WH) of the panel to enable detection from lower viral titer samples. The assay is run on the [employer] Sequencer, which performs automated library preparation, sequencing, analysis, and reporting. PM The sequence an alysis includes determination of viral phylogenetic lineage by comparison to the reference strain Wuhan-Hu-1, GenBank: [id number]. Sequence determination may not be possible owing [...] and its performance characteristics determined by the [facility] Molecular [facility]ostics [facility], which is certified under the Clinical Laboratory Improveme nt Amendments (C MARCO) as qualified to perform high complexity clinical laboratory testing. This test is validated for clinical use at [facility] and should not be regarded as investigational or for research. The FDA does not require this test to go through premarket FDA review, and therefore it has not been cleared or approved by the FDA. This report was reviewed and approved by the on-service pathologist. Ordering Provid er: JELANI SÁNCHEZ Report Released Date/Time: Dec 06, 2021 01:13 PM Reporting Lab: [facility] [address] [facility] [address] Performing Lab: [facility] [address] [facility] [address] SARS-CoV-2 CLADE() 22C (OMICRON) SARS-CoV-2 LINEAGE() BA.2.12.1 Dec 06, 2021 12:00 [facility] COVID-19 AG SCREEN Specimen Type: NASAL CAVITY PM [facility] PANEL BINAX(405) Comment: Testi ng Performed By: Mike Briscoe Ordering Provid er: JELANI SÁNCHEZ Report Released Date/Time: Dec 08, 2021 08:23 AM Reporting Lab: [facility] [address] [facility] [address] Performing Lab: [facility] [address] [facility] [address] COVID-19 AG SCRN(wrj BINAX) POSITIVE HH NE G Dec 06, 2021 12:00 PM [facility] LIVER PROFILE Sp ecimen Type: PLASMA Comment: Testin g Performed on Pham Sweater Designer (405) SN:[id number] Ordering Provid er: JELANI SÁNCHEZ Report Released Date/Time: Dec 06, 2021 11:57 AM Reporting Lab: [facility] [address] [facility] [address] Performing Lab: [facility] [address] [facility] [address] PROTEIN, TOTAL 6.6 6.0-8.5 ALBUMIN 2.8 L 3.2-5.0 BILIRUBIN, TOTAL 0.6 0.2-1.2 ALKALINE PHOSPHATASE 134 40-150 ALT(SGPT) 13 7-52 AST(SGOT) 18 5-34 FIB-4 SCORE 1.94 <2.67 Dec 06, 2021 [facility] GLU,BUN,CREAT,LYTES,CA Speci men Type: PLASMA 12:00 PM [facility] Comment: Testin g Performed on [employer] (405) SN:[id number] Ordering Provid er: JELANI SÁNCHEZ Report Released Date/Time: Dec 06, 2021 11:57 AM Reporting Lab: [place] [facility] [address] [facility] [address] Performing Lab: [facility] [address] [facility] [address] UREA NITROGEN 13 7-25 SODIUM 138 135-145 POTASSIUM 3.8 3.5-5.0 CHLORIDE 103 100-110 CARBON DIOXIDE 23 20-30 ANION GAP 12 4-16 GLUCOSE 105 H 65-100 CREATININE 0.90 0.5-1.5 CALCIUM 8.7 8.5-10.5 eGFR(CKD-EPI 2020) >90.0 >60 Dec 06, 2021 12:00 PM [facility] BNP(P) Sp ecimen Type: PLASMA Comment: Tests performed on [employer] (405) SN:[id number] Ordering Provid er: JELANI SÁNCHEZ Report Released Date/Time: Dec 06, 2021 11:57 AM Reporting Lab: [facility] [address] [facility] [address] Performing Lab: [facility] [address] [facility] [address] BNP(P) 224.8 H 10-100 Dec 06, 2021 12:00 PM [facility] TROPONIN II Sp ecimen Type: PLASMA Comment: Tests performed on [employer] (405) SN:[id number] Ordering Provid er: JELANI SÁNCHEZ Report Released Date/Time: Dec 06, 2021 11:57 AM Reporting Lab: [facility] [facility] [address] [facility] [facility] [address] [facility] Lab: [facility] [address] [facility] [address] TROPONIN II 0.03 0.00-0.29 Dec 06, 2021 [facility] COVID-19+FLU/RSV DIAGNOSTIC Spe cimen Type: NASOPHARYNX 12:00 PM [facility] PANEL(405) Comment: Tests performed on CoCollage Genexpert (405) Critical results called to and read back by: ALESHAI WILKINSON RN 12/06/21 @ 1312 Ordering Provid er: JELANI SÁNCHEZ Report Released Date/Time: Dec 06, 2021 11:57 AM Reporting Lab: [facility] [address] [facility] [address] Performing Lab: [place] [facility] [address] [facility] [address] FLU A(PCR) NEGATIVE NEGATIVE FLU B(PCR) NEGATIVE NEGATIVE RSV(PCR) NEGATIVE NEGATIVE COVID-19([id number]) DETECTED HH NO T DETECTED Dec 06, 2021 12:00 PM [facility] CBC PROFILE Sp ecimen Type: BLOOD No comment enter ed. Ordering Provid er: JELANI SÁNCHEZ Report Released Date/Time: Dec 06, 2021 11:57 AM Reporting Lab: [facility] [address] [facility] [address] Performing Lab: [facility] [address] [facility] [address] WBC 7.2 4.5-11.0 RBC 4.86 4.23-5.66 HGB [...] 2021 03:08 /min mm[Hg] RIVER PM T [facility]3] Dec 07, 96.3 F WHITE 2021 06:07 [...] took place. Date/Time Smoking Status/Tobacco Use Comment [facility] Apr 01, 2020 01:16 PM [...] the Encounter. The data comes from all [place] treatment facilities. Date/Time Radiology Report Provider Source Dec 13, 2021 12:57 PM MRI ABDOMEN W/WO CONTRAST: MARYELLEN LONG LUCAS LARES N [id number] -1950 [facility] Exm Date: DEC 13, 2021@12:57 Req Phys: ISATU TODD Loc: OP Unknown/0 12-15-2021@13:20 Img Loc: MRI IMAGING (OOS) Service: ZZGENERAL MEDICINE (Case [id number] COMPLETE) MRI ABDOMEN W/WO CONTRAST (M RI Detailed) CPT:26396 Reason for Study: further characterization of a [...] new lyphadenopathy REQUESTING MD: Isatu Todd PAGER: [phone] PHONE: [phone] Weight: 232.2 lb [105.32 kg] (12/12/2021 05:00) [...] patient will need to arrange for a locomotive driver to take him/her home after the [...] 15, 2021 Date Verified: DEC 15, 2021 Marketing Coordinator E-Sig:/ES/MARYELLEN LONG Report: MRI ABDOMEN W/WO CONTRAST [...] MALIGNANCY Primary Interpreting Staff: Staff AMELIA THOMAS (Marketing Coordinator) / Dec 10, 2021 09:[address] ABDOMEN & PELVIS: RADIOLOG[facility]IDE [facility] KALYANILUCAS N [id number] -1950 M SERVICE [facility] Exm Date: DEC 10, 2021@09:30 Req Phys: ISATU TODD Loc: 1S MED/12-10@10:57 Img Loc: CT SCAN (OOS) Service: [facility] MEDICINE (Case [id number] COMPLETE) CT ABD & PELVIS WITHOUT CONT RAST (CT Detailed) CPT:15726 Reason for Study: 71 yo male with [...] INDEX - NO HEIGHTS FOUND Pager number: [phone] STAT orders MUST be call ed to RADIOLOGY [phone] to speak to the appropriate voice intercept technician. Report Status: Verified Date Reported: DEC 10, 2021 Date Verified: DEC 10, 2021 Marketing Coordinator E-Sig: Report: EXAM: CT abdomen and pelvis [...] ph nodes. READING PHYSICIAN: Ramone Munoz D.O. -[phone] 12/10/2021 10:55 EDT [facility] T[facility] [phone] (For Medical Practitioner Use Only ) [address] [facility] [facility] [address] [place] [address] Attention Patients / Veterans: If you have ques tions or concerns about these test results, please contact your o rdering provider or primary care team. Primary Diagnostic Code: SIGNIFICANT ABNORMALIT Y, ATTN NEEDED Primary Interpreting Staff: RADIOLOGY,OUTSIDE SERVICE, Staff Physician / Dec 09, 2021 07:34 AM BASW (MODIFIED): JESSIE CHENEY [facility] LUCAS MEEK N [id number] -1950 M [facility]3] Exm Date: DEC 09, 2021@07:34 Req Phys: ISATU TODD Loc: 1S /12-09@11:26 Img Loc: XRAY (OOS) Service: [facility] MEDICINE (Case [id number] COMPLETE) BASW (MODIFIED) (RAD Detaile d) CPT:07327 Contrast Media : Barium Reason for Study: dysphagia ?esophageal spasm Clinical History: Report Status: Verified Date Reported: DEC 09, 2021 Date Verified: DEC 09, 2021 Marketing Coordinator E-Sig:/ES/JESSIE CHENEY Report: BASPrincess (MODIFIED) , 12/09/2021 [...] REQUIRED Primary Interpreting Staff: JESSIE CHENEY, RADIOLOGIST (Marketing Coordinator) /TLC Dec 06, 2021 12:[address] CHEST (INCLUDES ADRENALS): JESSIE CHENEY [facility] LUCAS MEEK N [id number] -1950 M [facility]3] Exm Date: DEC 06, 2021@12:59 Req Phys: GONZALOJELANI ORLANDO Loc: [facility] ED DAYS M 1RD (Req'g Loc) Img Loc: CT SCAN (OOS) Service: Unknown (Case [id number] COMPLETE) CT THORAX W/O CONT (CT Detai led) CPT:73668 Reason for Study: Opacification right chest Clinical History: No contrast allergy BUN: 13 (12/06/21 12:00) CREATI: 0.90 (12/06/21 12:00) eGFR 05/16/21 09:43 52 L Weight: 232.6 lb [105.51 kg] (12/06/2021 11:40) BODY MASS INDEX - NO HEIGHTS FOUND Pager number: [phone] STAT orders MUST be called t o RADIOLOGY [phone] to speak to the appropriate voice intercept technician. Indications - Other: Opacification right chest, covid positive, lung cancer histo Report Status: Verified Date Reported: DEC 06, 2021 Date Verified: DEC 06, 2021 Marketing Coordinator E-Sig:/ES/JESSIE CHENEY Report: CT THORAX W/O CONT [...] REQUIRED Primary Interpreting Staff: JESSIE CHENEY, RADIOLOGIST (Marketing Coordinator) Primary Interpreting Resident: PRINCE CHAMPION, Resident /BR Dec 06, 2021 11:58 AM CHEST SINGLE VIEW: JESSIE CHENEY LUCAS MEEK Lei [id number] -1950 M [facility] Exm Date: DEC 06, 2021@11:58 Req Phys: JELANI SÁNCHEZ Pat Loc: [facility] ED DAYS M 1RD (Req'g Loc) Img Loc: XRAY (OOS) Service: Unknown (Case [id number] COMPLETE) CHEST SINGLE VIEW (RAD Detai led) CPT:22992 Proc Modifiers : PORTABLE EXAM Reason for Study: SOB, home covid test positive Clinical History: Report Status: Verified Date Reported: DEC 06, 2021 Date Verified: DEC 06, 2021 Marketing Coordinator E-Sig:/ES/JESSIE CHENEY Report: Exam type: Chest x-ray [...] REQUIRED Primary Interpreting Staff: JESSIE CHENEY, RADIOLOGIST (Marketing Coordinator) /TLC Pathology Reports: +/- 30 days of [...] the Encounter. The data comes from all [place] treatment facilities. Date/Time Pathology Report Provider Source Jan 03, 2022 10:28 AM LR SURGICAL PATHOLOGY REPORT: STEFANY MILLER [place] LOCAL TITLE: LR SURGICAL PATHOLOGY REPORT [facility]3] STANDARD TITLE: PATHOLOGY REPORT DATE OF NOTE: JAN 03, 2022@10:28:01 ENTRY DATE: JAN 03, 2022@10:28:01 AUTHOR: NIURKA MILLER EXP COSIGNER: URGENCY: STATUS: COMPLETED $APHDR Reporting Lab: [facility] [CLIA# [id number]] [address] [place] [address] - - - - - - [...] automatically d ocumented from SURGERY package case #[id number] Field (#32) PRINCIPAL PRE-OP DIAGNOSIS, (#.72) OTHER [...] automatically d ocumented from SURGERY package case #[id number] Field (#34) PRINCIPAL POST-OP DIAG, (#.74) OTHER [...] Label: Lucas Meek Paperwork: Lucas Meek Cassette: [id number];..;KALYANI;.;405;[phone] Specimen is labeled: ES bx Received in formalin are several pieces of pale boyd and brown tissue, 1.2 x 0.7 cm in aggregate. Submitted entirely in 1 cassette [id number];..;KALYANI;.;405;[phone] SAW 12/15/2021 Microscopic exam: *+* MODIFIED REPORT *+* (Last modified: JAN 03, 2022@09:30:20 typed by NIURKA WADDELL) DIAGNOSIS: A. 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 Kendell long. TIARA Coombs was notified on 12/21/21. Modified on 01/03/22 to include report from [facility] stating that tumor is NEGATIVE for her2/ matheus amplification. The attending pathologist who signature mansoor ears on this report has reviewed all diagnostic slides and has edited t he gross and/or microscopic portion of this report in rendering the final pathologic diagnosis. [address] [address] CPT: 72949 /emely/ NIURKA Yeung MD Signed Jan 03, 2022@10:28 Performing Laboratory: Surgical Pathology Report Performed By: [facility]3] [CLIA# [id number]] [address] [place] [address] $FTR - - - - - [...] - - LUCAS MEEK STANDARD FORM 515 ID:[id number] SEX:M :1950 AGE: 71 LOC: SDM END PCP: Isatu Todd /emely/ NIURKA MILLER Staff Signed: 01/03/2022 10:28 Dec 21, 2021 11:46 AM LR SURGICAL PATHOLOGY REPORT: STEFANY MILLER [place] LOCAL TITLE: LR SURGICAL PATHOLOGY REPORT [facility]3] STANDARD TITLE: PATHOLOGY REPORT DATE OF NOTE: DEC 21, 2021@11:46:59 ENTRY DATE: DEC 21, 2021@11:46:59 AUTHOR: NIURKA MILLER EXP COSIGNER: URGENCY: STATUS: COMPLETED $APHDR Reporting Lab: [facility] [CLIA# [id number]] [address] [place] [address] - - - - - - [...] automatically d ocumented from SURGERY package case #[id number] Field (#32) PRINCIPAL PRE-OP DIAGNOSIS, (#.72) OTHER [...] automatically d ocumented from SURGERY package case #[id number] Field (#34) PRINCIPAL POST-OP DIAG, (#.74) OTHER [...] Label: Lucas Meek Paperwork: Lucas Meek Cassette: [id number];..;KALYANI;.;405;[phone] Specimen is labeled: ES bx Received in formalin are several pieces of pale boyd and brown tissue, 1.2 x 0.7 cm in aggregate. Submitted entirely in 1 cassette [id number];..;KALYANI;.;405;[id number] SAW 12/15/2021 Microscopic exam: DIAGNOSIS: A. 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 Kendell long. TIARA Coombs was notified on 12/21/21. The attending pathologist who signature mansoor ears on this report has reviewed all diagnostic slides and has edited t he gross and/or microscopic portion of this report in rendering the final pathologic diagnosis. [address] [address] CPT: 34534 /emely/ NIURKA Yeung MD Signed Dec 21, 2021@11:46 Performing Laboratory: Surgical Pathology Report Performed By: [facility] [CLIA# [id number]] [address] [place] [address] $FTR - - - - - [...] - - LUCAS MEEK STANDARD FORM 515 ID:[id number] SEX:M :1950 AGE: 71 LOC: [facility] END PCP: Isatu Todd /charmaine Yeung MD Signed: 12/21/2021 11:46 Dec 06, 2021 03:30 PM LR MICROBIOLOGY REPORT: [facility] Reporting Lab: [facility] [CLIA# [id number]] [address] [place] [address] Accession [UID]: [id number] [[id number]] Receiv ed: Dec 06, 2021@16:14 Collection sample: BLOOD CUL T BOTTLE(NIRMAL/AERO)Collection date: Dec 06, 2021 15:30 Site/Specimen: BLOOD Provider: JELANI SÁNCHEZ Comment on specimen: LAC Test(s) ordered: BLOOD CULTURE ANAEROBI C....... completed: Dec 12, 2021 06:18 * BACTERIOLOGY FINAL REPORT => Dec 12, 2021 06:1 8 TECH CODE: [id number] Bacteriology Remark(s): NO GROWTH IN 5 DAYS =--=--=--=--=--=--=--=--=--=--=--=--=--= --=--=--=--=--=--=--=--=--=--=--=--=-- Performing Laboratory: Bacteriology Report Performed By: [facility] [CLIA# [id number]] [address] [place] [address] Dec 06, 2021 03:30 PM LR MICROBIOLOGY REPORT: [facility] Reporting Lab: [facility] [CLIA# [id number]] [address] [place] [address] Accession [UID]: [id number] [[id number]] Receiv ed: Dec 06, 2021@16:14 Collection sample: BLOOD CUL T BOTTLE(NIRMAL/AERO)Collection date: Dec 06, 2021 15:30 Site/Specimen: BLOOD Provider: JELANI SÁNCHEZ Comment on specimen: LAC Test(s) ordered: BLOOD CULTURE AEROBIC. ........ completed: Dec 12, 2021 06:17 * BACTERIOLOGY FINAL REPORT => Dec 12, 2021 06:1 7 TECH CODE: [id number] Bacteriology Remark(s): NO GROWTH IN 5 DAYS =--=--=--=--=--=--=--=--=--=--=--=--=--= --=--=--=--=--=--=--=--=--=--=--=--=-- Performing Laboratory: Bacteriology Report Performed By: [facility] [CLIA# [id number]] [address] [place] [address]
--- OUTSIDE RECORDS SUMMARY | 2022-01-19 08:20 | XMS_ITS ---
DAILY HOSPITALIZATION DATA [facility] Encounter Summary Created on:December 07, 2021 Patient:LUCAS MEEK Sex:Male :1950 Author Organization [facility] Address [address] [place] [id number] Support Name Relationship Address Phone YUSRA MEEK Unavailable [address] [place] [address] YUSRA MEEK Unavailable [address] [place] [facility] [place] [address] CLAY MOSLEY Unavailable Unavailable SJ SANTACRUZ Unavailable [...] MEDICARE MEDICARE PART Jun 18, PART A [id number] DO KALYANI PATIENT (WNR) (M) A 2016 13A 1 U[place]AS MEDICARE MEDICARE PART Jun 18, PART B [id number] DO KALYANI PATIENT (WNR) (M) B 2016 13A 1 [place] MEDICARE MEDICARE PART Jun 18, PART A [id number] KALYANIDO PATIENT (WNR) (M) A 2017 VH81 2 [place]AS MEDICARE MEDICARE PART Jun 18, PART B [id number] DO KALYANI PATIENT (WNR) (M) B 2017 VH81 2 [place]AS UNITED MEDICARE MCR(Jun 18 [id number] Luz MEEK PATIENT HEALTHCARE ADVANTAGE NR) 2021 37 0 [facility] (WNR) Selected Encounter This section includes the information on record at [place] for the Encounter. Date/Time Encounter Type Encounter Description Reason Provider Source Dec 07, 2021 01:30 Inpatient Visit DAILY HOSPITALIZATION DATA PM E Encounter Template Text not used by [place] [...] AM AM[place]ORY [place] [facility] Jan 06, 2022 02:00 PM [place] [facility] Jan 10, 2022 11:30 AM [facility] Jan 24, 2022 08:00 [place] [facility] Feb 21, 2022 10:00 AM AMBUL[place]ORY [place] [facility] Mar 21, 2022 10:30 AM [facility]ORY - MEDIC[facility] Active, [...] The data comes from all [place] [facility]. Test Date/Time Test Type Test Details Facility Name October 31, 2021 07:37 AM Consult Order COMMUNITY CARE-EGD [facility] Cons Lead Accountant's Choice November 15, 2021 10:37 AM Consult Order [facility] CARE-PODIATRY Cons Lead Accountant's Choice Dec 06, 2021 12:52 PM [place]acy [place] In[place] Order [facility] Dec 06, 2021 03:24 PM [place]acy [place] [facility] Dec 06, 2021 03:40 PM [place]acy [place] [facility] Dec 15, 2021 08:41 AM Consult Order SPEECH PATHOLOGY [place] OUT[place] Cons [facility] Lead Accountant's Choice Jan 15, 2022 10:08 PM Consult Order [facility] CARE-PALLIATIVE CARE Cons Lead Accountant's Choice Lab Results: +/- 30 days of [...] Reference Range Comment Dec 15, 2021 [place] P4 GLU,BUN,CREAT,LYTES,CA Speci men Type: PLASMA 06:43 AM [facility] Comment: Tests performed on [employer] (405) SN:[id number] Ordering Provid er: ISATU TODD Report Released Date/Time: Dec 11, 2021 07:42 AM Reporting Lab: [facility] [address] [facility] [address] Performing [facility]: [facility] [address] [facility] [address] UREA NITROGEN 9 7-25 SODIUM 137 135-145 POTASSIUM 3.8 3.5-5.0 CHLORIDE 105 100-110 CARBON DIOXIDE 26 20-30 ANION GAP 6 4-16 GLUCOSE 102 H 65-100 CREATININE 0.64 0.5-1.5 CALCIUM 8.1 L 8.5-10.5 eGFR(CKD-EPI 2020) >90.0 >60 Dec 15, 2021 06:43 AM [facility] CBC PROFILE Sp ecimen Type: BLOOD No comment enter ed. Ordering Provid er: ISATU TODD Report Released Date/Time: Dec 10, 2021 07:22 AM Reporting Lab: [facility] [address] [facility] [address] Performing Lab: [facility] [address] [facility] [address] WBC 5.7 4.5-11.0 RBC 4.22 L 4.23-5.66 [...] ABSOLUTE NRBC 0.00 0-0 Dec 14, 2021 [facility] CYTOGENETIC Specimen Type: ESOPHAGUS 02:59 PM VA[facility] FISH([facility]) Comment: ~For T est: CYTOGENETIC FISH([facility]) ~FISH HER 2 NUE, FFPE See full report in Flightfox Image display viewer/tab#LAB-Reference Ordering Provid er: NIURKA MILLER Report Released Date/Time: Dec 21, 2021 12:11 PM Reporting Lab: [facility] [address] [facility] [address] Performing Lab: [facility] CYTOGENETIC FISH([facility]) comment Dec 14, 2021 [facility] P4 GLU,BUN,CREAT,LYTES,CA Speci men Type: PLASMA 06:27 AM [facility] Comment: Tests performed on [employer] (405) SN:[id number] Ordering Provid er: ISATU TODD Report Released Date/Time: Dec 11, 2021 07:42 AM Reporting Lab: [facility] [address] [facility] [address] Performing Lab: [facility] [address] [facility] [address] UREA NITROGEN 10 7-25 SODIUM 137 135-145 [...] Lab: [facility] [address] [facility] [address] Performing Lab: [facility] [address] [facility] [address] WBC 6.0 4.5-11.0 RBC 4.29 4.23-5.66 HGB [...] ABSOLUTE NRBC 0.00 0-0 Dec 13, 2021 [facility] P4 GLU,BUN,CREAT,LYTES,CA Speci men Type: PLASMA 06:34 AM [facility] Comment: Tests performed on [employer] (405) SN:[id number] Ordering Provid er: ISATU TODD Report Released Date/Time: Dec 11, 2021 07:42 AM Reporting Lab: [facility] [address] [facility] [address] Performing Lab: [facility] [address] [facility] [address] UREA NITROGEN 12 7-25 SODIUM 136 135-145 [...] Lab: [facility] [address] [facility] [address] Performing Lab: [facility] [address] [facility] [address] WBC 5.6 4.5-11.0 RBC 4.28 4.23-5.66 HGB [...] ABSOLUTE NRBC 0.00 0-0 Dec 12, 2021 [facility] P4 GLU,BUN,CREAT,LYTES,CA Speci men Type: PLASMA 06:21 AM [facility] Comment: Tests performed on [employer] (405) SN:[id number] Ordering Provid er: ISATU TODD Report Released Date/Time: Dec 11, 2021 07:42 AM Reporting Lab: [facility] [address] [facility] [address] Performing Lab: [facility] [address] [facility] [address] UREA NITROGEN 11 7-25 SODIUM 139 135-145 [...] Dec 10, 2021 07:22 AM Reporting Lab: [facility] [address] [facility] [address] Performing Lab: [facility] [address] [facility] [address] WBC 5.5 4.5-11.0 RBC 4.37 4.23-5.66 HGB [...] 0.00 0-0 Dec 12, 2021 06:[address] [facility] MAGNESIUM Sp ecimen Type: PLASMA Comment: Testin g Performed on [employer] (405) SN:[id number] Ordering Provid er: ISATU TODD Report Released Date/Time: Dec 12, 2021 08:24 AM Reporting Lab: [place] [facility] [address] [facility] [address] Performing Lab: [facility] [place] [facility]ist[facility] MD Revolution[facility] [address] [facility] [address] MAGNESIUM 1.8 1.6-2.6 Dec 12, 2021 06:[address] [facility]T MD [facility] PHOSPHORUS Sp ecimen Type: PLASMA Comment: Testin g Performed on [employer] (405) SN:[id number] Ordering Provid er: ISATU TODD Report Released Date/Time: Dec 12, 2021 08:24 AM Reporting Lab: [place] [facility] [address] [facility] [address] Performing Lab: [place] [facility] MD [facility] [address] [facility] [address] PHOSPHORUS 3.1 2.5-5.0 Dec 11, 2021 06:15 AM [facility] [place] [facility]ist[facility] MD [facility] ELECTROLYTES Sp ecimen Type: PLASMA Comment: Tests performed on [employer] (405) SN:[id number] Ordering Provid er: ISATU TODD Report Released Date/Time: Dec 10, 2021 07:22 AM Reporting Lab: [place] [facility] [address] [facility] [address] Performing Lab: [place] [facility] [address] [facility] [address] SODIUM 137 135-145 POTASSIUM 4.3 3.5-5.0 CHLORIDE 108 100-110 CARBON DIOXIDE 20 20-30 ANION GAP 9 4-16 Dec 11, 2021 06:15 AM [place] [employer] CBC PROFILE Sp ecimen Type: BLOOD Comment: Result s checked Ordering Provid er: ISATU TODD Report Released Date/Time: Dec 10, 2021 07:22 AM Reporting Lab: [place] [facility]ME[facility] [address] [facility] [address] Performing Lab: [place] [facility] [address] [facility] [address] WBC 5.8 4.5-11.0 RBC 4.37 4.23-5.66 HGB [...] 0.00 0-0 Dec 11, 2021 06:00 AM [facility] PHOSPHORUS Sp ecimen Type: PLASMA Comment: Tests performed on [employer] (224) SN:[id number] Results checked Ordering Provid er: ISATU TODD Report Released Date/Time: Dec 11, 2021 07:44 AM Reporting Lab: [facility] [address] [facility] [address] Performing Lab: [place] OMEGAT NDMROC [address] [facility] [address] PHOSPHORUS 3.0 2.5-5.0 Dec 10, 2021 08:05 AM [place] [facility] MAGNESIUM Sp ecimen Type: PLASMA Comment: [place] [id number] on Dec 10, 2021@08:31 Tests performed on [employer] (405) SN:[id number] Ordering Provid er: ISATU TODD Report Released Date/Time: Dec 10, 2021 07:22 AM Reporting Lab: [place] [facility] [address] [place] [facility] [place] [address] Performing Lab: [place] [facility] [address] [place] [facility] [place] [address] MAGNESIUM 1.7 1.6-2.6 Dec 10, 2021 08:05 AM [place] UREA NITROGEN Specimen Type: PLASMA [facility] Comment: [place] [id number] on Dec 10, 2021@08:31 Tests performed on [employer] (405) SN:[id number] Ordering Provid er: ISATU TODD Report Released Date/Time: Dec 10, 2021 07:22 AM Reporting Lab: [place] [facility] [address] [place] [facility] [place] [address] Performing Lab: [place] [facility] [address] [place] [facility] [place] [address] UREA NITROGEN 8 7-25 Dec 10, 2021 08:05 AM [place] [facility] PHOSPHORUS Sp ecimen Type: PLASMA Comment: [place] [id number] on Dec 10, 2021@08:31 Tests performed on [employer] (405) SN:[id number] Ordering Provid er: ISATU TODD Report Released Date/Time: Dec 10, 2021 07:22 AM Reporting Lab: [place] [facility] [address] [place] [facility] [place] [address] Performing Lab: [place] [facility] [address] [place] [facility] [place] [address] PHOSPHORUS 1.8 L 2.5-5.0 Dec 10, 2021 08:05 AM [place] [facility] CALCIUM Sp ecimen Type: PLASMA Comment: [place] [id number] on Dec 10, 2021@08:31 Tests performed on [employer] (405) SN:[id number] Ordering Provid er: ISATU TODD Report Released Date/Time: Dec 10, 2021 07:22 AM Reporting Lab: [place] [facility] [address] [facility] [address] Performing Lab: [place] OME[facility] [address] [facility] [address] CALCIUM 8.3 L 8.5-10.5 Dec 10, 2021 08:05 AM [place] OMEGAT [facility] CBC PROFILE Sp ecimen Type: BLOOD No comment enter ed. Ordering Provid er: ISATU TODD Report Released Date/Time: Dec 10, 2021 07:22 AM Reporting Lab: [place] [facility]GAT [facility] [address] [facility] [address] Performing Lab: [place] O[facility]GAT [facility] [address] [facility] [address] WBC 7.0 4.5-11.0 RBC 4.54 4.23-5.66 HGB [...] NRBC 0.00 0-0 Dec 10, 2021 08:05 [facility] CREAT[facility]INE WITH eGFR Specime n Type: PLASMA AM [facility] PANEL Comment: [place] [id number] on Dec 10, 2021@08:31 Tests performed on [employer] 405 SN:[id number] Ordering Provid er: TODD,ISATU E Report Released Date/Time: Dec 10, 2021 07:22 AM Reporting Lab: [place] [facility] [address] [facility] [address] Performing Lab: [place] [facility] [address] [facility] [address] CREATININE 0.78 0.5-1.5 eGFR(CKD-EPI 2020) >90.0 >60 Dec 10, 2021 08:05 AM [place] [facility] GLUCOSE Sp ecimen Type: PLASMA Comment: [place] [id number] on Dec 10, 2021@08:31 Tests performed on [employer] (405) SN:[id number] Ordering Provid er: ISATU TODD Report Released Date/Time: Dec 10, 2021 07:22 AM Reporting Lab: [place] [facility] [address] [facility] [address] Performing Lab: [place] [facility] [address] [facility] [address] GLUCOSE 144 H 65-100 Dec 10, 2021 08:05 AM [place] [facility] ELECTROLYTES Sp ecimen Type: PLASMA Comment: [place] [id number] on Dec 10, 2021@08:31 Tests performed on [employer] (405) SN:[id number] Ordering Provid er: ISATU TODD Report Released Date/Time: Dec 10, 2021 07:22 AM Reporting Lab: [place] [facility] [address] [facility] [address] Performing Lab: [place] [facility] [address] [facility] [address] SODIUM 139 135-145 POTASSIUM 3.7 3.5-5.0 CHLORIDE 107 100-110 CARBON DIOXIDE 24 20-30 ANION GAP 8 4-16 Dec 09, 2021 06:46 AM [place] [facility] MAGNESIUM Sp ecimen Type: PLASMA Comment: Tests performed on [employer] (405) SN:[id number] Ordering Provid er: ISATU TODD Report Released Date/Time: Dec 08, 2021 10:23 AM Reporting Lab: [place] [facility] [address] [facility] [address] Performing Lab: [place] [facility] [address] [facility] [address] MAGNESIUM 1.6 1.6-2.6 Dec 09, 2021 [facility] P4 GLU,BUN,CREAT,LYTES,CA Speci men Type: PLASMA 06:46 AM [facility] Comment: Tests performed on [employer] (405) SN:[id number] Ordering Provid er: ISATU TODD Report Released Date/Time: Dec 08, 2021 05:00 PM Reporting Lab: [facility] [address] [facility] [address] Performing Lab: [facility] [address] [facility] [address] UREA NITROGEN 6 L 7-25 SODIUM 134 [...] Lab: [facility] [address] [facility] [address] Performing Lab: [facility] [address] [facility] [address] WBC 7.1 4.5-11.0 RBC 4.40 4.23-5.66 HGB [...] 0.00 0-0 Dec 08, 2021 06:39 AM [place] [employer] T [facility] MAGNESIUM Sp ecimen Type: PLASMA Comment: Testin g Performed on [employer] (405) SN:[id number] Ordering Provid er: ISATU TODD Report Released Date/Time: Dec 07, 2021 10:32 AM Reporting Lab: [facility] [address] [facility] [address] Performing Lab: [facility] [address] [facility] [address] MAGNESIUM 1.5 L 1.6-2.6 Dec 08, 2021 [place] [employer] T P4 GLU,BUN,CREAT,LYTES,CA Speci men Type: PLASMA 06:39 AM [facility] Comment: Testin g Performed on [employer] (405) SN:[id number] Ordering Provid er: ISATU TODD Report Released Date/Time: Dec 07, 2021 10:32 AM Reporting Lab: [facility] [address] [facility] [address] Performing Lab: [facility] [address] [facility] [address] UREA NITROGEN 6 L 7-25 SODIUM 136 135-145 POTASSIUM 3.3 L 3.5-5.0 CHLORIDE 104 100-110 CARBON DIOXIDE 22 20-30 ANION GAP 10 4-16 GLUCOSE 133 H 65-100 CREATININE 0.76 0.5-1.5 CALCIUM 8.4 L 8.5-10.5 eGFR(CKD-EPI 2020) >90.0 >60 Dec 08, 2021 06:39 AM [place] [employer] T [facility] CBC PROFILE Sp ecimen Type: BLOOD No comment enter ed. Ordering Provid er: ISATU TODD Report Released Date/Time: Dec 07, 2021 10:32 AM Reporting Lab: [facility] [address] [facility] [address] Performing Lab: [facility] [address] [facility] WBC 8.4 4.5-11.0 RBC 4.75 4.23-5.66 [...] NRBC 0.00 0-0 Dec 07, 2021 06:42 [facility] LIVER PROFILE Specimen Typ e: PLASMA AM [facility] Comment: Tests performed on [employer] (405 SN:[id number] Ordering Provid er: PORFIRIO WALTERS Report Released Date/Time: Dec 06, 2021 06:57 PM Reporting Lab: [facility] [address] [facility] [address] Performing Lab: [facility] [address] [facility] [address] PROTEIN, TOTAL 5.7 L 6.0-8.5 ALBUMIN 2.4 L 3.2-5.0 BILIRUBIN, TOTAL 0.4 0.2-1.2 ALKALINE PHOSPHATASE 109 40-150 ALT(SGPT) 10 7-52 AST(SGOT) 15 5-34 FIB-4 SCORE 1.92 <2.67 Dec 07, 2021 [facility] P4 GLU,BUN,CREAT,LYTES,CA Speci men Type: PLASMA 06:42 AM [facility] Comment: Tests performed on [employer] (405) SN:[id number] Ordering Provid er: PORFIRIO WALTERS Report Released Date/Time: Dec 06, 2021 06:57 PM Reporting Lab: [place] [facility] [address] [facility] [address] Performing Lab: [place] [facility] [address] [facility] [address] UREA NITROGEN 9 7-25 SODIUM 135 135-145 POTASSIUM 3.5 3.5-5.0 CHLORIDE 103 100-110 CARBON DIOXIDE 22 20-30 ANION GAP 10 4-16 GLUCOSE 92 65-100 CREATININE 0.73 0.5-1.5 CALCIUM 8.0 L 8.5-10.5 eGFR(CKD-EPI 2020) >90.0 >60 Dec 07, 2021 06:42 AM [place] CBC PROFILE Specimen Type: BLOOD [facility] No comment enter ed. Ordering Provid er: PORFIRIO WALTERS Report Released Date/Time: Dec 06, 2021 06:57 PM Reporting Lab: [place] [facility] [address] [facility] [address] Performing Lab: [facility] [address] [facility] [address] WBC 5.7 4.5-11.0 RBC 4.15 L 4.23-5.66 [...] [facility]AM[facility] %) AUTOMATED Comment: Tests performed on [employer] (405) SN:[id number] Ordering Provid er: ISATU TODD Report Released Date/Time: Dec 07, 2021 10:28 AM Reporting Lab: [place] [facility] [address] [facility] [address] Performing Lab: [place] [facility] [address] [facility] [address] RETICULOCYTES (%) AUTOMATED 1.23 0. 6-2.0 RETICULOCYTES (ABS) AUTOMATED 0.052 0.030-0.090 Dec 06, 2021 09:45 [place] MRSA SURVL NARES Specimen Ty pe: NARES PM [facility] DNA No comment enter ed. Ordering Provid er: ALVARO VARGHESE Report Released Date/Time: Dec 07, 2021 02:20 AM Reporting Lab: [place] [facility] [address] [facility] [address] Performing Lab: [place] [facility] [address] [facility] [address] MRSA SURVL NARES DNA NEGATIVE NEGATIVE Dec 06, 2021 06:00 [place] URINALYSIS W/REFLEX TO Speci men Type: URINE PM [facility] CULTURE No comment enter ed. Ordering Provid er: JELANI SÁNCHEZ Report Released Date/Time: Dec 06, 2021 11:57 AM Reporting Lab: [place] [facility] [address] [facility] [address] Performing Lab: [place] [facility] [address] [facility] [address] URINE COLOR Arlin YELLOW SPECIFIC GRAVITY 1.029 [...] 21, [place]IANT Comment: https://www.cdc.gov/coronavirus/2019-ncov/cases-updates/variant- surveillance/variant-info.html The [employer]Quan SARS CoV 2 hive01 Research Assay-GX is a next-generation sequencing (NGS) assa 2021 [facility] SEQUENCING y that determine s the complete genome sequence of the SARS-CoV-2 virus. The assay contains variant-tolerant primers to broaden and improve the coverage for variant detection and increase the sensitivity 12:00 [facility] PNL(WH) of the panel to enable detection from lower viral titer samples. The assay is run on the [employer] Sequencer, which performs automated library preparation, sequencing, analysis, and reporting. PM The sequence an alysis includes determination of viral phylogenetic lineage by comparison to the reference strain Wuhan-Hu-1, GenBank: [id number]. Sequence determination may not be possible owing [...] and its performance characteristics determined by the [facility] Molecular Diagnostics Laboratory, which is certified under the Clinical Laboratory Improveme nt Amendments (C MARCO) as qualified to perform high complexity clinical laboratory testing. This test is validated for clinical use at [facility] and should not be regarded as investigational or for research. The FDA does not require this test to go through premarket FDA review, and therefore it has not been cleared or approved by the FDA. This report was reviewed and approved by the on-service pathologist. Ordering Provid er: JELANI SÁNCHEZ Report Released Date/Time: Dec 06, 2021 01:13 PM Reporting Lab: [facility] [address] [facility] [address] Performing Lab: [facility] [address] [facility] [address] SARS-CoV-2 CLADE() 22C (OMICRON) SARS-CoV-2 LINEAGE() BA.2.12.1 Dec 06, 2021 12:00 [facility] COVID-19 AG SCREEN Specimen Type: NASAL CAVITY PM [facility] PANEL [employer](405) Comment: Testi ng Performed By: Mike Briscoe Ordering Provid er: JELANI SÁNCHEZ Report Released Date/Time: Dec 08, 2021 08:23 AM Reporting Lab: [facility] [address] [facility] [address] Performing Lab: [facility] [address] [facility] [address] COVID-19 AG SCRN(wrj BINAX) POSITIVE HH NE G Dec 06, 2021 [facility] P4 GLU,BUN,CREAT,LYTES,CA Speci men Type: PLASMA 12:00 PM [facility] Comment: Testin g Performed on [employer] (405) SN:[id number] Ordering Provid er: JELANI SÁNCHEZ Report Released Date/Time: Dec 06, 2021 11:57 AM Reporting Lab: [facility] [address] [facility] [address] Performing Lab: [facility] [address] [facility] [address] UREA NITROGEN 13 7-25 SODIUM 138 135-145 POTASSIUM 3.8 3.5-5.0 CHLORIDE 103 100-110 CARBON DIOXIDE 23 20-30 ANION GAP 12 4-16 GLUCOSE 105 H 65-100 CREATININE 0.90 0.5-1.5 CALCIUM 8.7 8.5-10.5 eGFR(CKD-EPI 2020) >90.0 >60 Dec 06, 2021 12:00 PM [facility] LIVER PROFILE Sp ecimen Type: PLASMA Comment: Testin g Performed on [employer] (405) SN:[id number] Ordering Provid er: JELANI SÁNCHEZ Report Released Date/Time: Dec 06, 2021 11:57 AM Reporting Lab: [facility] [address] [facility] [address] Performing [facility] [address] [facility] [address] PROTEIN, TOTAL 6.6 6.0-8.5 ALBUMIN 2.8 L 3.2-5.0 BILIRUBIN, TOTAL 0.6 0.2-1.2 ALKALINE PHOSPHATASE 134 40-150 ALT(SGPT) 13 7-52 AST(SGOT) 18 5-34 FIB-4 SCORE 1.94 <2.67 Dec 06, 2021 12:00 PM [facility] TROPONIN II Sp ecimen Type: PLASMA Comment: Tests performed on [employer] (405) SN:[id number] Ordering Provid er: JELANI SÁNCHEZ Report Released Date/Time: Dec 06, 2021 11:57 AM Reporting Lab: [facility] [address] [facility] [address] Performing Lab: [facility] [address] [facility] [address] TROPONIN II 0.03 0.00-0.29 Dec 06, 2021 12:00 PM [facility] BNP(P) Sp ecimen Type: PLASMA Comment: Tests performed on [employer] (405) SN:[id number] Ordering Provid er: JELANI SÁNCHEZ Report Released Date/Time: Dec 06, 2021 11:57 AM Reporting Lab: [facility] [address] [facility] [address] Performing Lab: [facility] [address] [facility] [address] BNP(P) 224.8 H 10-100 Dec 06, 2021 [facility] COVID-19+FLU/RSV DIAGNOSTIC Spe cimen Type: NASOPHARYNX 12:00 PM [facility] PANEL(405) Comment: Tests performed on [employer] [place] [employer] (405) Critical results called to and read back by: ALESHIA WILKINSON RN 12/06/21 @ 1312 Ordering Provid er: JELANI SÁNCHEZ Report Released Date/Time: Dec 06, 2021 11:57 AM Reporting Lab: [facility] [address] [facility] [address] Performing Lab: [place] [facility] [address] [facility] [address] FLU A(PCR) NEGATIVE NEGATIVE FLU B(PCR) NEGATIVE NEGATIVE RSV(PCR) NEGATIVE NEGATIVE COVID-19([id number]) DETECTED HH NO T DETECTED Dec 06, 2021 12:00 PM [facility] PROFILE Sp ecimen Type: BLOOD No comment enter ed. Ordering Provid er: JELANI SÁNCHEZ Report Released Date/Time: Dec 06, 2021 11:57 AM Reporting Lab: [facility] [address] [facility] [address] Performing Lab: [facility] [address] [facility] [address] WBC 7.2 4.5-11.0 RBC 4.86 4.23-5.66 HGB [...] WHITE 2021 11:00 /min mm[Hg] RIVER PM [facility] Dec 07, 95 144/57 18 /min 98 % 0 WHITE 2021 03:08 /min mm[Hg] RIVER PM T [facility] Dec 07, 96.3 F WHITE 2021 06:07 R[facility] AM [facility] Dec 07, 88 141/85 16 /min 95 % 0 WHITE 2021 06:03 /min mm[Hg] [facility] Dec 07, 6 WHITE 2021 12:47 R[facility] AM [facility] Social History: Smoking Status (Most current) [...] TOBACCO USE IN PAST YEAR [facility] May 01, 2016 03:11 PM QUIT TOBACCO USE IN PAST YEAR [facility] May 01, 2016 11:19 AM QUIT TOBACCO USE IN PAST YEAR [facility] Mar 16, 2016 12:50 PM V1-PT DECLINES REF TO TOBACCO [facility] CESS PRGM Mar 16, 2016 12:50 PM V1-PT THINKING ABOUT QUIT [facility] TOBACCO USE Aug 12, 2015 08:48 AM CURRENT SMOKER [facility] Radiology Reports: +/- 30 days of [...] W/WO CONTRAST: MARYELLEN LONG LUCAS LARES N [id number] -1950 [facility] Exm Date: DEC 13, 2021@12:57 Req Phys: ISATU TODD Loc: OP Unknown/0 12-15-2021@13:20 Img Loc: MRI IMAGING (OOS) Service: ZZGENERAL MEDICINE (Case [id number] COMPLETE) MRI ABDOMEN W/WO CONTRAST (M RI Detailed) CPT:25330 Reason for Study: further characterization of a [...] new lyphadenopathy REQUESTING MD: Isatu Todd PAGER: [phone] PHONE: [phone] Weight: 232.2 lb [105.32 kg] (12/12/2021 05:00) [...] patient will need to arrange for a limb driver to take him/her home after the [...] 15, 2021 Date Verified: DEC 15, 2021 Housekeeper E-Sig:/ES/MARYELLEN LONG Report: MRI ABDOMEN W/WO CONTRAST [...] MALIGNANCY Primary Interpreting Staff: Staff AMELIA THOMAS (Housekeeper) / Dec 10, 2021 09:[address] ABDOMEN & PELVIS: RAD[facility]IDE [facility] KALYANILUCAS N [id number] -1950 M [facility] Exm Date: DEC 10, 2021@09:30 Req Phys: ISATU TODD Loc: 1S MED/12-10@10:57 Img Loc: CT SCAN (OOS) Service: [facility] MEDICINE (Case [id number] COMPLETE) CT ABD & PELVIS WITHOUT CONT RAST (CT Detailed) CPT:27634 Reason for Study: 71 yo male with [...] INDEX - NO HEIGHTS FOUND Pager number: [phone] STAT orders MUST be call ed to RADIOLOGY [phone] to speak to the appropriate metrology technician. Report Status: Verified Date Reported: DEC 10, 2021 Date Verified: DEC 10, 2021 Housekeeper E-Sig: Report: EXAM: CT abdomen and pelvis [...] ph nodes. READING PHYSICIAN: Ramone Munoz D.O. [phone] 12/10/2021 10:55 EDT [facility] [phone] (For Medical Practitioner Use Only ) [address] [facility], [facility] [address] [place] [address] Attention Patients / Veterans: If you have ques tions or concerns about these test results, please contact your o rdering provider or primary care team. Primary Diagnostic Code: SIGNIFICANT ABNORMALIT Y, ATTN NEEDED Primary Interpreting Staff: RADIOLOGY,OUTSIDE SERVICE, Staff Physician / Dec 09, 2021 07:34 AM BASW (MODIFIED): JESSIE CHENEY [facility] LUCAS MEEK N [id number] -1950 M [facility] Exm Date: DEC 09, 2021@07:34 Req Phys: ISATU TODD Loc: 1S /12-09@11:26 Img Loc: XRAY (OOS) Service: [facility] MEDICINE (Case [id number] COMPLETE) BASW (MODIFIED) (RAD Detaile d) CPT:50894 Contrast Media : Barium Reason for Study: dysphagia ?esophageal spasm Clinical History: Report Status: Verified Date Reported: DEC 09, 2021 Date Verified: DEC 09, 2021 Housekeeper E-Sig:/ES/JESSIE CHENEY Report: BASPrincess (MODIFIED) , 12/09/2021 [...] REQUIRED Primary Interpreting Staff: JESSIE CHENEY, RADIOLOGIST (Housekeeper) /TLC Dec 06, 2021 12:[address] CHEST (INCLUDES ADRENALS): JESSIE CHENEY [facility] LUCAS MEEK N [id number] -1950 M [facility] Exm Date: DEC 06, 2021@12:59 Req Phys: GONZALOJELANI ORLANDO Loc: [facility] ED DAYS M 1RD (Req'g Loc) Img Loc: CT SCAN (OOS) Service: Unknown (Case [id number] COMPLETE) CT THORAX W/O CONT (CT Detai led) CPT:96108 Reason for Study: Opacification right chest Clinical History: No contrast allergy BUN: 13 (12/06/21 12:00) CREATI: 0.90 (12/06/21 12:00) eGFR 05/16/21 09:43 52 L Weight: 232.6 lb [105.51 kg] (12/06/2021 11:40) BODY MASS INDEX - NO HEIGHTS FOUND Pager number: [phone] STAT orders MUST be called t o RADIOLOGY [phone] to speak to the appropriate metrology technician. Indications - Other: Opacification right chest, covid positive, lung cancer histo Report Status: Verified Date Reported: DEC 06, 2021 Date Verified: DEC 06, 2021 Housekeeper E-Sig:/ES/JESSIE CHENEY Report: CT THORAX W/O CONT [...] REQUIRED Primary Interpreting Staff: JESSIE CHENEY, RADIOLOGIST (Housekeeper) Primary Interpreting Resident: PRINCE CHAMPION, Resident /BR Dec 06, 2021 11:58 AM CHEST SINGLE VIEW: JESSIE CHENEY LUCAS MEEK Lei [id number] -1950 [facility] Exm Date: DEC 06, 2021@11:58 Req Phys: JELANI SÁNCHEZ Pat Loc: [facility] ED DAYS M 1RD (Req'g Loc) Img Loc: XRAY (OOS) Service: Unknown (Case [id number] COMPLETE) CHEST SINGLE VIEW (RAD Detai led) CPT:69562 Proc Modifiers : PORTABLE EXAM Reason for Study: SOB, home covid test positive Clinical History: Report Status: Verified Date Reported: DEC 06, 2021 Date Verified: DEC 06, 2021 Housekeeper E-Sig:/ES/JESSIE CHENEY Report: Exam type: Chest x-ray [...] REQUIRED Primary Interpreting Staff: JESSIE CHENEY, RADIOLOGIST (Housekeeper) /TLC Pathology Reports: +/- 30 days of [...] LOCAL TITLE: LR SURGICAL PATHOLOGY REPORT [facility] STANDARD TITLE: PATHOLOGY REPORT DATE OF NOTE: JAN 03, 2022@10:28:01 ENTRY DATE: JAN 03, 2022@10:28:01 AUTHOR: NIURKA MILLER EXP COSIGNER: URGENCY: STATUS: COMPLETED $APHDR Reporting Lab: [facility] [CLIA# [id number]] [address] [place] [address] - - - - - - [...] automatically d ocumented from SURGERY package case #[id number] Field (#32) PRINCIPAL PRE-OP DIAGNOSIS, (#.72) OTHER [...] automatically d ocumented from SURGERY package case #[id number] Field (#34) PRINCIPAL POST-OP DIAG, (#.74) OTHER [...] Label: Lucas Meek Paperwork: Lucas Meek Cassette: [id number];..;KALYANI;.;405;[id number] Specimen is labeled: ES bx Received in formalin are several pieces of pale boyd and brown tissue, 1.2 x 0.7 cm in aggregate. Submitted entirely in 1 cassette [id number];..;KALYANI;.;405;[id number] SAW 12/15/2021 Microscopic exam: *+* MODIFIED REPORT *+* (Last modified: JAN 03, 2022@09:30:20 typed by NIURKA WADDELL) DIAGNOSIS: A. 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 Kendell long. TIARA Coombs was notified on 12/21/21. Modified on 01/03/22 to include report from [facility] stating that tumor is NEGATIVE for her2/ matheus amplification. The attending pathologist who signature mansoor ears on this report has reviewed all diagnostic slides and has edited t he gross and/or microscopic portion of this report in rendering the final pathologic diagnosis. [address] [address] CPT: 84332 /emely/ NIURKA Yeung MD Signed Jan 03, 2022@10:28 Performing Laboratory: Surgical Pathology Report Performed By: [facility]TO[facility] [CLIA# [id number]] [address] [place] [address] $FTR - - - - - [...] - - LUCAS MEEK STANDARD FORM 515 ID:[id number] SEX:M :1950 AGE: 71 LOC: SDM END PCP: Isatu Todd /emely/ NIURKA MILLER Staff Signed: 01/03/2022 10:28 Dec 21, 2021 11:46 AM LR SURGICAL PATHOLOGY REPORT: STEFANY MILLER [place] LOCAL TITLE: LR SURGICAL PATHOLOGY REPORT [facility] STANDARD TITLE: PATHOLOGY REPORT DATE OF NOTE: DEC 21, 2021@11:46:59 ENTRY DATE: DEC 21, 2021@11:46:59 AUTHOR: NIURKA MILLER EXP COSIGNER: URGENCY: STATUS: COMPLETED $APHDR Reporting Lab: [facility] [CLIA# [id number]] [address] [place] [address] - - - - - - [...] automatically d ocumented from SURGERY package case #[id number] Field (#32) PRINCIPAL PRE-OP DIAGNOSIS, (#.72) OTHER [...] automatically d ocumented from SURGERY package case #[id number] Field (#34) PRINCIPAL POST-OP DIAG, (#.74) OTHER [...] Label: Lucas Meek Paperwork: Lucas Meek Cassette: [id number];..;KALYANI;.;405;[phone] Specimen is labeled: ES bx Received in formalin are several pieces of pale boyd and brown tissue, 1.2 x 0.7 cm in aggregate. Submitted entirely in 1 cassette [id number];..;KALYANI;.;405;[id number] SAW 12/15/2021 Microscopic exam: DIAGNOSIS: A. 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 Kendell long. TIARA Coombs was notified on 12/21/21. The attending pathologist who signature mansoor ears on this report has reviewed all diagnostic slides and has edited t he gross and/or microscopic portion of this report in rendering the final pathologic diagnosis. [address] [address] CPT: 45985 /emely/ NIURKA Yeung MD Signed Dec 21, 2021@11:46 Performing Laboratory: Surgical Pathology Report Performed By: [facility] [CLIA# [id number]] [address] [place] [address] $FTR - - - - - [...] - - LUCAS MEEK STANDARD FORM 515 ID:[id number] SEX:M :1950 AGE: 71 LOC: [facility] END PCP: Isatu Todd /charmaine Yeung MD Signed: 12/21/2021 11:46 Dec 06, 2021 03:30 PM LR MICROBIOLOGY REPORT: [facility] Reporting Lab: [facility] [CLIA# [id number]] [address] [place] [address] Accession [UID]: [id number] [[id number]] Receiv ed: Dec 06, 2021@16:14 Collection sample: BLOOD CUL T BOTTLE(NIRMAL/AERO)Collection date: Dec 06, 2021 15:30 Site/Specimen: BLOOD Provider: JELANI SÁNCHEZ Comment on specimen: LAC Test(s) ordered: BLOOD CULTURE ANAEROBI C....... completed: Dec 12, 2021 06:18 * BACTERIOLOGY FINAL REPORT => Dec 12, 2021 06:1 8 TECH CODE: [id number] Bacteriology Remark(s): NO GROWTH IN 5 DAYS =--=--=--=--=--=--=--=--=--=--=--=--=--= --=--=--=--=--=--=--=--=--=--=--=--=-- Performing Laboratory: Bacteriology Report Performed By: [facility] [CLIA# [id number]] [address] [place] [address] Dec 06, 2021 03:30 PM LR MICROBIOLOGY REPORT: [facility] Reporting Lab: [facility] [CLIA# [id number]] [address] [place] [address] Accession [UID]: [id number] [[id number]] Receiv ed: Dec 06, 2021@16:14 Collection sample: BLOOD CUL T BOTTLE(NIRMAL/AERO)Collection date: Dec 06, 2021 15:30 Site/Specimen: BLOOD Provider: JELANI SÁNCHEZ Comment on specimen: LAC Test(s) ordered: BLOOD CULTURE AEROBIC. ........ completed: Dec 12, 2021 06:17 * BACTERIOLOGY FINAL REPORT => Dec 12, 2021 06:1 7 TECH CODE: [id number] Bacteriology Remark(s): NO GROWTH IN 5 DAYS =--=--=--=--=--=--=--=--=--=--=--=--=--= --=--=--=--=--=--=--=--=--=--=--=--=-- Performing Laboratory: Bacteriology Report Performed By: [facility] [CLIA# [id number]] [address] [place] [facility] [place] [address]
--- OUTSIDE RECORDS SUMMARY | 2022-01-19 08:21 | XMS_ITS ---
DAILY HOSPITALIZATION DATA [facility] Encounter Summary Created on:December 07, 2021 Patient:LUCAS MEEK Sex:Male :1950 Author Organization [facility] Address [address] [place] [id number] Support Name Relationship Address Phone YUSRA MEEK Unavailable [address] [place] [address] YUSRA MEEK Unavailable [address] [place] [address] CLAY MOSLEY Unavailable Unavailable SJ SANTACRUZ Unavailable [...] MEDICARE MEDICARE PART Jun 18, PART A [id number] DO KALYANI PATIENT (WNR) (M) A 2016 13A 1 UGLAS MEDICARE MEDICARE PART Jun 18, PART B [id number] DO KALYANI PATIENT (WNR) (M) B 2016 13A 1 [place]AS MEDICARE MEDICARE PART Jun 18, PART A [id number] KALYANIDO PATIENT (WNR) (M) A 2017 VH81 2 [place]AS MEDICARE MEDICARE PART Jun 18, PART B [id number] DO KALYANI PATIENT (WNR) (M) B 2017 VH81 2 [place] UNITED MEDICARE MCR(Jun 18 [id number] Luz MEEK PATIENT HEALTHCARE ADVANTAGE NR) 2021 37 0 [facility] (WNR) Selected Encounter This section includes the information on record at DC for the Encounter. Date/Time Encounter Type Encounter Description Reason Provider Source Dec 07, 2021 11:00 Inpatient Visit DAILY HOSPITALIZATION DATA PM IHE [...] The data comes from all [place] treatment facilities. Appointment Date/Time Appointment Type Appointment Facili ty Name Dec 21, 2021 08:00 AM [place] [facility] Jan 06, 2022 02:00 PM [place] [facility] Jan 10, 2022 11:30 AM AMBULATORY - MEDICINE [facility] Jan 24, 2022 08:00 AM [place] [facility] Feb 21, 2022 10:00 AM AMBUL[place] [facility] Mar 21, 2022 10:30 AM AMBULATORY - [...] The data comes from all [place] treatment [facility]. Test Date/Time Test Type Test Details Facility Name October 31, 2021 07:37 AM Consult Order [facility]ITY [facility]ARE-EGD [facility] Cons Manager [employer] November 15, 2021 10:37 AM Consult Order [facility] CARE-PODIATRY Cons Manager [employer] Dec 06, 2021 12:52 PM [place]acy [place] Infusion Order [facility] Dec 06, 2021 03:24 PM Pharmacy [place] [facility] Dec 06, 2021 03:40 PM [place]acy [place] [facility] Dec 15, 2021 08:41 AM Consult Order SPEECH PATHOLOGY [place] OUTPATIENT Cons [facility] Manager [employer] Jan 15, 2022 10:08 PM Consult Order [facility] CARE-PALLIATIVE CARE Cons Manager [employer] Lab Results: +/- 30 days of [...] Reference Range Comment Dec 15, 2021 [place] P4 GLU,BUN,CREAT,LYTES,CA Speci men Type: PLASMA 06:43 AM [facility] Comment: Tests performed on Adonit (405) SN:[id number] Ordering Provid er: ISATU TODD Report Released Date/Time: Dec 11, 2021 07:42 AM Reporting Lab: [facility] T [facility] [address] [facility] [address] Performing Lab: [facility] [address] [facility] [address] UREA NITROGEN 9 7-25 SODIUM 137 135-145 POTASSIUM 3.8 3.5-5.0 CHLORIDE 105 100-110 CARBON DIOXIDE 26 20-30 ANION GAP 6 4-16 GLUCOSE 102 H 65-100 CREATININE 0.64 0.5-1.5 CALCIUM 8.1 L 8.5-10.5 eGFR(CKD-EPI 2020) >90.0 >60 Dec 15, 2021 06:43 AM [place] [facility] CBC PROFILE Sp ecimen Type: BLOOD No comment enter ed. Ordering Provid er: ISATU TODD Report Released Date/Time: Dec 10, 2021 07:22 AM Reporting Lab: [facility] T [facility] [address] [facility] [address] Performing Lab: [facility] [address] [facility] [address] WBC 5.7 4.5-11.0 RBC 4.22 L 4.23-5.66 [...] ABSOLUTE NRBC 0.00 0-0 Dec 14, 2021 [place] [facility] CYTOGENETIC Specimen Type: ESOPHAGUS 02:59 PM [facility] FISH([facility]) Comment: ~For T est: CYTOGENETIC FISH([facility]) ~FISH HER 2 NUE, FFPE See full report in Nexvet Image display viewer/tab#LAB-Reference Ordering Provid er: NIURKA MILLER Report Released Date/Time: Dec 21, 2021 12:11 PM Reporting Lab: [facility] [address] [facility] [address] Performing Lab: [facility] CYTOGENETIC FISH([facility]) comment Dec 14, 2021 06:27 AM [facility] CBC PROFILE Sp ecimen Type: BLOOD No comment enter ed. Ordering Provid er: ISATU TODD Report Released Date/Time: Dec 10, 2021 07:22 AM Reporting Lab: [facility] [address] [facility] [address] Performing Lab: [facility] [address] [facility] [address] WBC 6.0 4.5-11.0 RBC 4.29 4.23-5.66 HGB [...] 4.7 2.2-7.6 ABSOLUTE NRBC 0.00 0-0 Dec 14, 2021 [facility] P4 GLU,BUN,CREAT,LYTES,CA Speci men Type: PLASMA 06:27 AM [facility] Comment: Tests performed on Adonit (405) SN:[id number] Ordering Provid er: ISATU TODD Report Released Date/Time: Dec 11, 2021 07:42 AM Reporting Lab: [facility] [address] [facility] [address] Performing Lab: [facility] [address] [facility] [address] UREA NITROGEN 10 7-25 SODIUM 137 135-145 POTASSIUM 4.0 3.5-5.0 CHLORIDE 104 100-110 CARBON DIOXIDE 25 20-30 ANION GAP 8 4-16 GLUCOSE 99 65-100 CREATININE 0.67 0.5-1.5 CALCIUM 8.2 L 8.5-10.5 eGFR(CKD-EPI 2020) >90.0 >60 Dec 13, 2021 [facility] P4 GLU,BUN,CREAT,LYTES,CA Speci men Type: PLASMA 06:34 AM [facility] Comment: Tests performed on Adonit (405) SN:[id number] Ordering Provid er: ISATU TODD Report Released Date/Time: Dec 11, 2021 07:42 AM Reporting Lab: [facility] [address] [facility] [address] Performing Lab: [facility] [address] [facility] [address] UREA NITROGEN 12 7-25 SODIUM 136 135-145 POTASSIUM 3.9 3.5-5.0 CHLORIDE 105 100-110 CARBON DIOXIDE 24 20-30 ANION GAP 7 4-16 GLUCOSE 102 H 65-100 CREATININE 0.66 0.5-1.5 CALCIUM 8.3 L 8.5-10.5 eGFR(CKD-EPI 2020) >90.0 >60 Dec 13, 2021 06:34 AM [facility] CBC PROFILE Sp ecimen Type: BLOOD No comment enter ed. Ordering Provid er: ISATU TODD Report Released Date/Time: Dec 10, 2021 07:22 AM Reporting Lab: [facility] [address] [facility] [address] Performing Lab: [facility] [address] [facility] [address] WBC 5.6 4.5-11.0 RBC 4.28 4.23-5.66 HGB [...] ABSOLUTE NRBC 0.00 0-0 Dec 12, 2021 [facility] P4 GLU,BUN,CREAT,LYTES,CA Speci men Type: PLASMA 06:21 AM [facility] Comment: Tests performed on Adonit (405) SN:[id number] Ordering Provid er: ISATU TODD Report Released Date/Time: Dec 11, 2021 07:42 AM Reporting Lab: [facility] [address] [facility] [address] Performing Lab: [facility] [address] [facility] [address] UREA NITROGEN 11 7-25 SODIUM 139 135-145 POTASSIUM 4.1 3.5-5.0 CHLORIDE 107 100-110 CARBON DIOXIDE 24 20-30 ANION GAP 8 4-16 GLUCOSE 110 H 65-100 CREATININE 0.70 0.5-1.5 CALCIUM 8.3 L 8.5-10.5 eGFR(CKD-EPI 2020) >90.0 >60 Dec 12, 2021 06:21 AM [facility] CBC PROFILE Sp ecimen Type: BLOOD No comment enter ed. Ordering Provid er: ISTAU TODD Report Released Date/Time: Dec 10, 2021 07:22 AM Reporting Lab: [facility] [address] [facility] [address] Performing Lab: [facility] [address] [facility] [address] WBC 5.5 4.5-11.0 RBC 4.37 4.23-5.66 HGB [...] 0.00 0-0 Dec 12, 2021 06:00 AM [facility] MAGNESIUM Sp ecimen Type: PLASMA Comment: Testin g Performed on Adonit (405) SN:[id number] Ordering Provid er: ISATU TODD Report Released Date/Time: Dec 12, 2021 08:24 AM Reporting Lab: [place] [facility] [address] [facility] [address] Performing Lab: [place] [facility] [address] [facility] [address] MAGNESIUM 1.8 1.6-2.6 Dec 12, 2021 06:00 AM [facility] PHOSPHORUS Sp ecimen Type: PLASMA Comment: Testin g Performed on Adonit (405) SN:[id number] Ordering Provid er: ISATU TODD Report Released Date/Time: Dec 12, 2021 08:24 AM Reporting Lab: [place] PunchdT [facility] [address] [facility] [address] Performing Lab: [place] [facility] [address] [facility] [address] PHOSPHORUS 3.1 2.5-5.0 Dec 11, 2021 06:15 AM [place] [employer] ELECTROLYTES Sp ecimen Type: PLASMA Comment: Tests performed on Adonit (405) SN:[id number] Ordering Provid er: ISATU TODD Report Released Date/Time: Dec 10, 2021 07:22 AM Reporting Lab: [place] PunchdT [facility] [address] [facility] [address] Performing Lab: [place] [facility]unchdT [facility] [address] [facility] [address] SODIUM 137 135-145 POTASSIUM 4.3 3.5-5.0 CHLORIDE 108 100-110 CARBON DIOXIDE 20 20-30 ANION GAP 9 4-16 Dec 11, 2021 06:15 AM [place] [employer] [facility] CBC PROFILE Sp ecimen Type: BLOOD Comment: Result s checked Ordering Provid er: ISATU TODD Report Released Date/Time: Dec 10, 2021 07:22 AM Reporting Lab: [place] OMEGAT [facility] [address] [facility] [address] Performing Lab: [place] [facility]ME[facility] [address] [facility] [address] WBC 5.8 4.5-11.0 RBC 4.37 4.23-5.66 HGB [...] ecimen Type: PLASMA Comment: Tests performed on Adonit (772) SN:[id number] Results checked Ordering Provid er: ISATU TODD Report Released Date/Time: Dec 11, 2021 07:44 AM Reporting Lab: [facility] [facility] [address] [facility] [address] Performing Lab: [place] OMEGAT DCMROC [address] [facility] [address] PHOSPHORUS 3.0 2.5-5.0 Dec 10, 2021 08:05 AM [place] UREA NITROGEN Specimen Type: PLASMA [facility] Comment: [place] [id number] on Dec 10, 2021@08:31 Tests performed on Adonit (405) SN:[id number] Ordering Provid er: ISATU TODD Report Released Date/Time: Dec 10, 2021 07:22 AM Reporting Lab: [place] [facility] [address] [place] [facility] [place] [address] Performing Lab: [place] [facility] [address] [facility] [address] UREA NITROGEN 8 7-25 Dec 10, 2021 08:05 AM [place] [facility] MAGNESIUM Sp ecimen Type: PLASMA Comment: [place] [id number] on Dec 10, 2021@08:31 Tests performed on Adonit (405) SN:[id number] Ordering Provid er: ISATU TODD Report Released Date/Time: Dec 10, 2021 07:22 AM Reporting Lab: [place] [facility] [address] [place] [facility] [place] [address] Performing Lab: [place] [facility] [address] [place] [facility] [place] [address] MAGNESIUM 1.7 1.6-2.6 Dec 10, 2021 08:05 AM [place] [facility] GLUCOSE Sp ecimen Type: PLASMA Comment: [place] [id number] on Dec 10, 2021@08:31 Tests performed on Adonit (405) SN:[id number] Ordering Provid er: ISATU TODD Report Released Date/Time: Dec 10, 2021 07:22 AM Reporting Lab: [place] [facility] [address] [place] [facility] [place] [address] Performing Lab: [place] [facility] [address] [place] [facility] [place] [address] GLUCOSE 144 H 65-100 Dec 10, 2021 08:05 AM [place] [facility] PHOSPHORUS Sp ecimen Type: PLASMA Comment: [place] [id number] on Dec 10, 2021@08:31 Tests performed on Adonit (405) SN:[id number] Ordering Provid er: ISATU TODD Report Released Date/Time: Dec 10, 2021 07:22 AM Reporting Lab: [place] [facility] [address] [place] [facility] [place] [address] Performing Lab: [place] [facility] [address] [facility] [address] PHOSPHORUS 1.8 L 2.5-5.0 Dec 10, 2021 08:05 AM [place] [facility] ELECTROLYTES Sp ecimen Type: PLASMA Comment: [place] [id number] on Dec 10, 2021@08:31 Tests performed on Adonit (405) SN:[id number] Ordering Provid er: ISATU TODD Report Released Date/Time: Dec 10, 2021 07:22 AM Reporting Lab: [place] [facility] [address] [facility] [address] Performing Lab: [place] [facility] [address] [facility] [address] SODIUM 139 135-145 POTASSIUM 3.7 3.5-5.0 CHLORIDE 107 100-110 CARBON DIOXIDE 24 20-30 ANION GAP 8 4-16 Dec 10, 2021 08:05 AM [place] [facility] CALCIUM Sp ecimen Type: PLASMA Comment: [place] [id number] on Dec 10, 2021@08:31 Tests performed on Adonit (405) SN:[id number] Ordering Provid er: ISATU TODD Report Released Date/Time: Dec 10, 2021 07:22 AM Reporting Lab: [place] [facility] [address] [facility] [address] Performing Lab: [place] [facility] [address] [facility] [address] CALCIUM 8.3 L 8.5-10.5 Dec 10, 2021 08:05 AM [place] [facility] CBC PROFILE Sp ecimen Type: BLOOD No comment enter ed. Ordering Provid er: ISATU TODD Report Released Date/Time: Dec 10, 2021 07:22 AM Reporting Lab: [place] [facility] [address] [facility] [address] Performing Lab: [place] [facility] [address] [facility] [address] WBC 7.0 4.5-11.0 RBC 4.54 4.23-5.66 HGB [...] PLASMA AM [facility] PANEL [place]: [place] [id number] on Dec 10, 2021@08:31 Tests performed on Adonit (405) SN:[id number] Ordering Provid er: ISATU TODD Report Released Date/Time: Dec 10, 2021 07:22 AM Reporting Lab: [facility] [address] [facility] [address] Performing Lab: [facility] [address] [facility] [address] CREATININE 0.78 0.5-1.5 eGFR(CKD-EPI 2020) >90.0 >60 Dec 09, 2021 06:46 AM [place] [facility] MAGNESIUM Sp ecimen Type: PLASMA Comment: Tests performed on Adonit (405) SN:[id number] Ordering Provid er: ISATU TODD Report Released Date/Time: Dec 08, 2021 10:23 AM Reporting Lab: [place] [facility] [address] [facility] [address] Performing Lab: [place] [facility] [address] [facility] [address] MAGNESIUM 1.6 1.6-2.6 Dec 09, 2021 [facility] P4 GLU,BUN,CREAT,LYTES,CA Speci men Type: PLASMA 06:46 AM [facility] Comment: Tests performed on Adonit (405) SN:[id number] Ordering Provid er: ISATU TODD Report Released Date/Time: Dec 08, 2021 05:00 PM Reporting Lab: [facility] [address] [facility] [address] Performing Lab: [facility] [address] [facility] [address] UREA NITROGEN 6 L 7-25 SODIUM 134 L 135-145 POTASSIUM 3.7 3.5-5.0 CHLORIDE 103 100-110 CARBON DIOXIDE 23 20-30 ANION GAP 8 4-16 GLUCOSE 112 H 65-100 CREATININE 0.70 0.5-1.5 CALCIUM 8.1 L 8.5-10.5 eGFR(CKD-EPI 2020) >90.0 >60 Dec 09, 2021 06:46 AM [facility] CBC PROFILE Sp ecimen Type: BLOOD No comment enter ed. Ordering Provid er: ISATU TODD Report Released Date/Time: Dec 08, 2021 05:00 PM Reporting Lab: [facility] [address] [facility] [address] Performing Lab: [facility] [address] [facility] [address] WBC 7.1 4.5-11.0 RBC 4.40 4.23-5.66 HGB [...] 0.00 0-0 Dec 08, 2021 06:39 AM [place] T [facility] MAGNESIUM Sp ecimen Type: PLASMA Comment: Testin g Performed on Adonit (405) SN:[id number] Ordering Provid er: ISATU TODD Report Released Date/Time: Dec 07, 2021 10:32 AM Reporting Lab: [facility] [address] [facility] [address] Performing Lab: [facility] [address] [facility] [address] MAGNESIUM 1.5 L 1.6-2.6 Dec 08, 2021 [place] P4 GLU,BUN,CREAT,LYTES,CA Speci men Type: PLASMA 06:39 AM [facility] Comment: Testin g Performed on Adonit (405) SN:[id number] Ordering Provid er: ISATU TODD Report Released Date/Time: Dec 07, 2021 10:32 AM Reporting Lab: [place] T [facility] [address] [facility] [address] Performing Lab: [facility] [address] [facility] [address] UREA NITROGEN 6 L 7-25 SODIUM 136 135-145 POTASSIUM 3.3 L 3.5-5.0 CHLORIDE 104 100-110 CARBON DIOXIDE 22 20-30 ANION GAP 10 4-16 GLUCOSE 133 H 65-100 CREATININE 0.76 0.5-1.5 CALCIUM 8.4 L 8.5-10.5 eGFR(CKD-EPI 2020) >90.0 >60 Dec 08, 2021 06:39 AM [place] [employer] [facility] T [facility] CBC PROFILE Sp ecimen Type: BLOOD No comment enter ed. Ordering Provid er: ISATU TODD Report Released Date/Time: Dec 07, 2021 10:32 AM Reporting Lab: [facility] [address] [facility] [address] Performing Lab: [facility] [address] [facility] WBC 8.4 4.5-11.0 RBC 4.75 4.23-5.66 [...] 0-0 Dec 07, 2021 06:42 [facility] LIVER PROFILE Specimen Typ e: PLASMA AM [facility] Comment: Tests performed on Adonit (405 SN:[id number] Ordering Provid er: PORFIRIO WALTERS Report Released Date/Time: Dec 06, 2021 06:57 PM Reporting Lab: [facility] [address] [facility] [address] Performing Lab: [facility] [address] [facility] [address] PROTEIN, TOTAL 5.7 L 6.0-8.5 ALBUMIN 2.4 L 3.2-5.0 BILIRUBIN, TOTAL 0.4 0.2-1.2 ALKALINE PHOSPHATASE 109 40-150 ALT(SGPT) 10 7-52 AST(SGOT) 15 5-34 FIB-4 SCORE 1.92 <2.67 Dec 07, 2021 [facility] GLU,BUN,CREAT,LYTES,CA Speci men Type: PLASMA 06:42 AM [facility] Comment: Tests performed on Adonit (405) SN:[id number] Ordering Provid er: PORFIRIO WALTERS Report Released Date/Time: Dec 06, 2021 06:57 PM Reporting Lab: [place] [facility] [address] [facility] [address] Performing Lab: [place] [facility] [address] [facility] [address] UREA NITROGEN 9 7-25 SODIUM 135 135-145 POTASSIUM 3.5 3.5-5.0 CHLORIDE 103 100-110 CARBON DIOXIDE 22 20-30 ANION GAP 10 4-16 GLUCOSE 92 65-100 CREATININE 0.73 0.5-1.5 CALCIUM 8.0 L 8.5-10.5 eGFR(CKD-EPI 2020) >90.0 >60 Dec 07, 2021 06:42 AM [place] CBC PROFILE Specimen Type: BLOOD [facility] No comment enter ed. Ordering Provid er: PORFIRIO WALTERS Report Released Date/Time: Dec 06, 2021 06:57 PM Reporting Lab: [place] [facility] [address] [facility] [address] Performing Lab: [facility] [address] [facility] [address] WBC 5.7 4.5-11.0 RBC 4.15 L 4.23-5.66 [...] [facility]AMROC %) AUTOMATED Comment: Tests performed on Adonit (405) SN:[id number] Ordering Provid er: ISATU TODD Report Released Date/Time: Dec 07, 2021 10:28 AM Reporting Lab: [place] [facility] [address] [facility] [address] Performing Lab: [place] [facility] [address] [facility] [address] RETICULOCYTES (%) AUTOMATED 1.23 0. 6-2.0 RETICULOCYTES (ABS) AUTOMATED 0.052 0.030-0.090 Dec 06, 2021 09:45 [place] MRSA SURVL NARES Specimen Ty pe: NARES PM [facility] DNA No comment enter ed. Ordering Provid er: ALVARO VARGHESE Report Released Date/Time: Dec 07, 2021 02:20 AM Reporting Lab: [place] [facility] [address] [facility] [address] Performing Lab: [place] [facility] [address] [facility] [address] MRSA SURVL NARES DNA NEGATIVE NEGATIVE Dec 06, 2021 06:00 [place] URINALYSIS W/REFLEX TO Speci men Type: URINE PM [facility] CULTURE No comment enter ed. Ordering Provid er: JELANI SÁNCHEZ Report Released Date/Time: Dec 06, 2021 11:57 AM Reporting Lab: [place] [facility] [address] [facility] [address] Performing Lab: [place] [facility] [address] [facility] [address] URINE COLOR Arlin YELLOW SPECIFIC GRAVITY 1.029 [...] 21, R[place] VARIANT Comment: https://www.cdc.gov/coronavirus/2019-ncov/cases-updates/variant- surveillance/variant-info.html The [employer] SARS CoV 2 [employer] Research Assay-GX is a next-generation sequencing (NGS) assa 2021 [facility] SEQUENCING y that determine s the complete genome sequence of the SARS-CoV-2 virus. The assay contains variant-tolerant primers to broaden and improve the coverage for variant detection and increase the sensitivity 12:00 [facility] PNL(WH) of the panel to enable detection from lower viral titer samples. The assay is run on the Lan[employer] Sequencer, which performs automated library preparation, sequencing, analysis, and reporting. PM The sequence an alysis includes determination of viral phylogenetic lineage by comparison to the reference strain Wuhan-Hu-1, GenBank: [id number]. Sequence determination may not be possible owing [...] Dec 06, 2021 01:13 PM Reporting Lab: [facility] [address] [facility] [address] Performing Lab: [facility] [address] [facility] [address] SARS-CoV-2 CLADE() 22C (OMICRON) SARS-CoV-2 LINEAGE() BA.2.12.1 Dec 06, 2021 12:00 [facility] COVID-19 AG SCREEN Specimen Type: NASAL CAVITY PM [facility] PANEL BINAX(405) Comment: Testi ng Performed By: Mike Briscoe Ordering Provid er: JELANI SÁNCHEZ Report Released Date/Time: Dec 08, 2021 08:23 AM Reporting Lab: [facility] [address] [facility] [address] Performing Lab: [facility] [address] [facility] [address] COVID-19 AG SCRN(wrj BINAX) POSITIVE HH NE G Dec 06, 2021 12:00 PM [facility] LIVER PROFILE Sp ecimen Type: PLASMA Comment: Testin g Performed on Pham Skate Maker (405) [id number] Ordering Provid er: JELANI SÁNCHEZ Report Released Date/Time: Dec 06, 2021 11:57 AM Reporting Lab: [facility] [address] [facility] [address] Performing Lab[facility] [address] [facility] [address] PROTEIN, TOTAL 6.6 6.0-8.5 ALBUMIN 2.8 L 3.2-5.0 BILIRUBIN, TOTAL 0.6 0.2-1.2 ALKALINE PHOSPHATASE 134 40-150 ALT(SGPT) 13 7-52 AST(SGOT) 18 5-34 FIB-4 SCORE 1.94 <2.67 Dec 06, 2021 [facility] GLU,BUN,CREAT,LYTES,CA Speci men Type: PLASMA 12:00 PM [facility] Comment: Testin g Performed on Pham Skate Maker (405) [id number] Ordering Provid er: JELANI SÁNCHEZ Report Released Date/Time: Dec 06, 2021 11:57 AM Reporting Lab: [place] [address] [facility] [address] Performing Lab: [facility] [address] [facility] [address] UREA NITROGEN 13 7-25 SODIUM 138 135-145 POTASSIUM 3.8 3.5-5.0 CHLORIDE 103 100-110 CARBON DIOXIDE 23 20-30 ANION GAP 12 4-16 GLUCOSE 105 H 65-100 CREATININE 0.90 0.5-1.5 CALCIUM 8.7 8.5-10.5 eGFR(CKD-EPI 2020) >90.0 >60 Dec 06, 2021 12:00 PM [facility] BNP(P) Sp ecimen Type: PLASMA Comment: Tests performed on Pham Skate Maker (405) SN:[id number] Ordering Provid er: JELANI SÁNCHEZ Report Released Date/Time: Dec 06, 2021 11:57 AM Reporting Lab: [facility] [address] [facility] [address] Performing Lab: [facility] [address] [facility] [address] BNP(P) 224.8 H 10-100 Dec 06, 2021 12:00 PM [facility] [facility] Sp ecimen Type: PLASMA Comment: Tests performed on Pham Skate Maker (405) SN:[id number] Ordering Provid er: JELANI SÁNCHEZ Report Released Date/Time: Dec 06, 2021 11:57 AM Reporting Lab: [facility] [address] [facility] [address] Performing Lab: [facility] [address] [facility] [address] TROPONIN II 0.03 0.00-0.29 Dec 06, 2021 [facility]U/RSV DIAGNOSTIC Spe cimen Type: NASOPHARYNX 12:00 PM [facility] PANEL(405) Comment: Tests performed on SanT[employer]sti Genexpert (405) Critical results called to and read back by: ALESHIA WILKINSON RN 12/06/21 @ 1312 Ordering Provid er: JELANI SÁNCHEZ Report Released Date/Time: Dec 06, 2021 11:57 AM Reporting Lab[facility] [address] [facility] [address] Performing Lab: [place] [facility] [address] [facility] [address] FLU A(PCR) NEGATIVE NEGATIVE FLU B(PCR) NEGATIVE NEGATIVE RSV(PCR) NEGATIVE NEGATIVE COVID-19([id number]) DETECTED HH NO T DETECTED Dec 06, 2021 12:00 PM [facility] Sp ecimen Type: BLOOD No comment enter ed. Ordering Provid er: JELANI SÁNCHEZ Report Released Date/Time: Dec 06, 2021 11:57 AM Reporting Lab: [facility] [address] [facility] [address] Performing Lab: [facility] [address] [facility] [address] WBC 7.2 4.5-11.0 RBC 4.86 4.23-5.66 HGB [...] WHITE 2021 11:00 /min mm[Hg] RIVER PM [facility] Dec 07, 95 144/57 18 /min 98 % 0 WHITE 2021 03:08 /min mm[Hg] RIVER PM T [facility] Dec 07, 96.3 F WHITE 2021 06:07 RIVER AM [facility] Dec 07, 88 141/85 16 /min 95 % 0 WHITE 2021 06:03 /min mm[Hg] RIVER AM [facility] Dec 07, 6 WHITE 2021 12:47 RIVER AM [facility] Social History: Smoking Status (Most current) and [...] QUIT TOBACCO USE > 7 YEARS AGO [facility] Tobacco Use History This section includes a history of the smoking, or tobacco- related health factors, that were collected on or before the date of the Encounter. The data comes from the [place] facility where the Encounter took place. Date/Time Smoking Status/Tobacco Use Comment [facility] Apr 01, 2020 01:16 PM QUIT TOBACCO USE 1-7 YEARS AGO [facility] Mar 24, 2020 03:00 PM QUIT TOBACCO USE 1-7 YEARS AGO [facility] Feb 21, 2019 04:11 PM QUIT TOBACCO USE 1-7 YEARS AGO [facility] Feb 20, 2019 03:38 PM QUIT TOBACCO USE 1-7 YEARS AGO [facility] Feb 03, 2019 09:50 AM QUIT TOBACCO USE 1-7 YEARS AGO [facility] May 25, 2016 11:53 PM QUIT TOBACCO USE IN PAST YEAR [facility] May 23, 2016 06:57 PM QUIT TOBACCO USE > 7 YEARS AGO [facility] May 19, 2016 03:55 PM QUIT TOBACCO USE IN PAST YEAR [facility] May 19, 2016 10:29 AM QUIT TOBACCO USE 1-7 YEARS AGO [facility] May 01, 2016 07:26 PM QUIT TOBACCO USE IN PAST YEAR [facility] May 01, 2016 03:11 PM QUIT TOBACCO USE IN PAST YEAR [facility] May 01, 2016 11:19 AM QUIT TOBACCO USE IN PAST YEAR [facility] Mar 16, 2016 12:50 PM V1-PT DECLINES REF TO TOBACCO [facility] CESS PRGM Mar 16, 2016 12:50 PM V1-PT THINKING ABOUT QUIT [facility] DOYLE [facility] TOBACCO USE Aug 12, 2015 08:48 AM CURRENT SMOKER [facility] Yates [facility] Radiology Reports: +/- 30 days of the [...] The data comes from all [place] treatment facilities. Date/Time Radiology Report Provider Source Dec 13, 2021 12:57 PM MRI ABDOMEN W/WO CONTRAST: MARYELLEN LONG LUCAS LARES N [id number] -1950 [facility] Exm Date: DEC 13, 2021@12:57 Req Phys: ISATU TODD Loc: OP Unknown/0 12-15-2021@13:20 Img Loc: MRI IMAGING (OOS) Service: ZZGENERAL MEDICINE (Case [id number] COMPLETE) MRI ABDOMEN W/WO CONTRAST (M RI Detailed) CPT:23880 Reason for Study: further characterization of a [...] new lyphadenopathy REQUESTING MD: Isatu Todd PAGER: [phone] PHONE: [phone] Weight: 232.2 lb [105.32 kg] (12/12/2021 05:00) [...] patient will need to arrange for a jinrikisha driver to take him/her home after the [...] 15, 2021 Date Verified: DEC 15, 2021 Route Delivery Service Driver E-Sig:/ES/MARYELLEN LONG Report: MRI ABDOMEN W/WO CONTRAST [...] MALIGNANCY Primary Interpreting Staff: Staff AMELIA THOMAS (Route Delivery Service Driver) / Dec 10, 2021 09:[address] ABDOMEN & PELVIS: [facility] KALYANILUCAS N [id number] -1950 [facility] Exm Date: DEC 10, 2021@09:30 Req Phys: ISATU TODD Loc: 1S MED/12-10@10:57 Img Loc: CT SCAN (OOS) Service: [facility] MEDICINE (Case [id number] COMPLETE) CT ABD & PELVIS WITHOUT CONT RAST (CT Detailed) CPT:06804 Reason for Study: 71 yo male with [...] INDEX - NO HEIGHTS FOUND Pager number: [phone] STAT orders MUST be call ed to RADIOLOGY [phone] to speak to the appropriate deployment technician. Report Status: Verified Date Reported: DEC 10, 2021 Date Verified: DEC 10, 2021 Route Delivery Service Driver E-Sig: Report: EXAM: CT abdomen and pelvis [...] ph nodes. READING PHYSICIAN: Ramone Munoz D.O. -[phone] [id number] 12/10/2021 10:55 EDT [facility] National Teleradiology Program [phone] (For Medical Practitioner Use Only ) [address] [facility] [facility] [address], [address] [place] [address] Attention Patients / Veterans: If you have ques tions or concerns about these test results, please contact your o rdering provider or primary care team. Primary Diagnostic Code: SIGNIFICANT ABNORMALIT Y, ATTN NEEDED Primary Interpreting Staff: RADIOLOGY,OUTSIDE SERVICE, Staff Physician / Dec 09, 2021 07:34 AM BASW (MODIFIED): JESSIE CHENEY [facility] LUCAS MEEK N [id number] -1950 M [facility] Exm Date: DEC 09, 2021@07:34 Req Phys: ISATU TODD Loc: 1S /12-09@11:26 Img Loc: XRAY (OOS) Service: [facility] MEDICINE (Case [id number] COMPLETE) BASW (MODIFIED) (RAD Detaile d) CPT:32336 Contrast Media : Barium Reason for Study: dysphagia ?esophageal spasm Clinical History: Report Status: Verified Date Reported: DEC 09, 2021 Date Verified: DEC 09, 2021 Route Delivery Service Driver E-Sig:/ES/JESSIE CHENEY Report: BASPrincess (MODIFIED) , 12/09/2021 [...] REQUIRED Primary Interpreting Staff: JESSIE CHENEY, RADIOLOGIST (Route Delivery Service Driver) /TLC Dec 06, 2021 12:[address] CHEST (INCLUDES ADRENALS): JESSIE CHENEY [facility] LUCAS MEEK N [id number] -1950 M [facility] Exm Date: DEC 06, 2021@12:59 Req Phys: GONZALOJELANI ORLANDO Loc: [facility] ED DAYS M 1RD (Req'g Loc) Img Loc: CT SCAN (OOS) Service: Unknown (Case [id number] COMPLETE) CT THORAX W/O CONT (CT Detai led) CPT:37517 Reason for Study: Opacification right chest Clinical History: No contrast allergy BUN: 13 (12/06/21 12:00) CREATI: 0.90 (12/06/21 12:00) eGFR 05/16/21 09:43 52 L Weight: 232.6 lb [105.51 kg] (12/06/2021 11:40) BODY MASS INDEX - NO HEIGHTS FOUND Pager number: [phone] STAT orders MUST be called t o RADIOLOGY [phone] to speak to the appropriate deployment technician. Indications - Other: Opacification right chest, covid positive, lung cancer histo Report Status: Verified Date Reported: DEC 06, 2021 Date Verified: DEC 06, 2021 Route Delivery Service Driver E-Sig:/ES/JESSIE CHENEY Report: CT THORAX W/O CONT [...] REQUIRED Primary Interpreting Staff: JESSIE CHENEY, RADIOLOGIST (Route Delivery Service Driver) Primary Interpreting Resident: PRINCE CHAMPION, Resident /BR Dec 06, 2021 11:58 AM CHEST SINGLE VIEW: JESSIE CHENEY LUCAS MEEK Lei [id number] -1950 M [facility] Exm Date: DEC 06, 2021@11:58 Req Phys: JELANI SÁNCHEZ Pat Loc: [facility] ED DAYS M 1RD (Req'g Loc) Img Loc: XRAY (OOS) Service: Unknown (Case [id number] COMPLETE) CHEST SINGLE VIEW (RAD Detai led) CPT:80033 Proc Modifiers : PORTABLE EXAM Reason for Study: SOB, home covid test positive Clinical History: Report Status: Verified Date Reported: DEC 06, 2021 Date Verified: DEC 06, 2021 Route Delivery Service Driver E-Sig:/ES/JESSIE CHENEY Report: Exam type: Chest x-ray [...] REQUIRED Primary Interpreting Staff: JESSIE CHENEY, RADIOLOGIST (Route Delivery Service Driver) /TLC Pathology Reports: +/- 30 days of [...] The data comes from all [place] treatment facilities. Date/Time Pathology Report Provider Source Jan 03, 2022 10:28 AM LR SURGICAL PATHOLOGY REPORT: STEFANY MILLER [place] LOCAL TITLE: LR SURGICAL PATHOLOGY REPORT [facility] STANDARD TITLE: PATHOLOGY REPORT DATE OF NOTE: JAN 03, 2022@10:28:01 ENTRY DATE: JAN 03, 2022@10:28:01 AUTHOR: NIURKA MILLER EXP COSIGNER: URGENCY: STATUS: COMPLETED $APHDR Reporting Lab: [facility] [CLIA# [id number]] [address] [place] [address] - - - - - - [...] automatically d ocumented from SURGERY package case #[id number] Field (#32) PRINCIPAL PRE-OP DIAGNOSIS, (#.72) OTHER [...] automatically d ocumented from SURGERY package case #[id number] Field (#34) PRINCIPAL POST-OP DIAG, (#.74) OTHER [...] Label: Lucas Meek Paperwork: Lucas Meek Cassette: [id number];..;KALYANI;.;405;[phone] Specimen is labeled: ES bx Received in formalin are several pieces of pale boyd and brown tissue, 1.2 x 0.7 cm in aggregate. Submitted entirely in 1 cassette [id number];..;KALYANI;.;405;[id number] SAW 12/15/2021 Microscopic exam: *+* MODIFIED REPORT *+* (Last modified: JAN 03, 2022@09:30:20 typed by NIURKA WADDELL) DIAGNOSIS: A. 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 Kendell long. TIARA Coombs was notified on 12/21/21. Modified on 01/03/22 to include report from [facility] stating that tumor is NEGATIVE for her2/ matheus amplification. The attending pathologist who signature mansoor ears on this report has reviewed all diagnostic slides and has edited t he gross and/or microscopic portion of this report in rendering the final pathologic diagnosis. [address] [address] CPT: 13330 /emely/ NIURKA Yeung MD Signed Jan 03, 2022@10:28 Performing Laboratory: Surgical Pathology Report Performed By: [facility] MONTOYA [facility] [CLIA# [id number]] [address] [place] [address] $FTR - - - - - [...] - - LUCAS MEEK STANDARD FORM 515 ID:[id number] SEX:M :1950 AGE: 71 LOC: SDM END PCP: Isatu Todd /emely/ NIURKA MILLER Staff Signed: 01/03/2022 10:28 Dec 21, 2021 11:46 AM LR SURGICAL PATHOLOGY REPORT: STEFANY MILLER [place] LOCAL TITLE: LR SURGICAL PATHOLOGY REPORT [facility] STANDARD TITLE: PATHOLOGY REPORT DATE OF NOTE: DEC 21, 2021@11:46:59 ENTRY DATE: DEC 21, 2021@11:46:59 AUTHOR: NIURKA MILLER EXP COSIGNER: URGENCY: STATUS: COMPLETED $APHDR Reporting Lab: [facility] [CLIA# [id number]] [address] [place] [address] - - - - - - [...] automatically d ocumented from SURGERY package case #[id number] Field (#32) PRINCIPAL PRE-OP DIAGNOSIS, (#.72) OTHER [...] automatically d ocumented from SURGERY package case #[id number] Field (#34) PRINCIPAL POST-OP DIAG, (#.74) OTHER [...] Label: Lucas Meek Paperwork: Lucas Meek Cassette: [id number];..;KALYANI;.;405;[id number] Specimen is labeled: ES bx Received in formalin are several pieces of pale boyd and brown tissue, 1.2 x 0.7 cm in aggregate. Submitted entirely in 1 cassette [id number];..;KALYANI;.;405;[id number] SAW 12/15/2021 Microscopic exam: DIAGNOSIS: A. 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 Kendell long. TIARA Coombs was notified on 12/21/21. The attending pathologist who signature mansoor ears on this report has reviewed all diagnostic slides and has edited t he gross and/or microscopic portion of this report in rendering the final pathologic diagnosis. [address] [address] CPT: 39965 /emely/ NIURKA Yeung MD Signed Dec 21, 2021@11:46 Performing Laboratory: Surgical Pathology Report Performed By: [facility] [CLIA# [id number]] [address] [place] [address] $FTR - - - - - [...] - - LUCAS MEEK STANDARD FORM 515 ID:[id number] SEX:M :1950 AGE: 71 LOC: [facility] END PCP: Isatu Todd /charmaine Yeung MD Signed: 12/21/2021 11:46 Dec 06, 2021 03:30 PM LR MICROBIOLOGY REPORT: [facility] Reporting Lab: [facility] [CLIA# [id number]] [address] [place] [address] Accession [UID]: [id number] [[id number]] Receiv ed: Dec 06, 2021@16:14 Collection sample: BLOOD CUL T BOTTLE(NIRMAL/AERO)Collection date: Dec 06, 2021 15:30 Site/Specimen: BLOOD Provider: JELANI SÁNCHEZ Comment on specimen: LAC Test(s) ordered: BLOOD CULTURE ANAEROBI C....... completed: Dec 12, 2021 06:18 * BACTERIOLOGY FINAL REPORT => Dec 12, 2021 06:1 8 TECH CODE: [id number] Bacteriology Remark(s): NO GROWTH IN 5 DAYS =--=--=--=--=--=--=--=--=--=--=--=--=--= --=--=--=--=--=--=--=--=--=--=--=--=-- Performing Laboratory: Bacteriology Report Performed By: [facility] [CLIA# [id number]] [address] [place] [address] Dec 06, 2021 03:30 PM LR MICROBIOLOGY REPORT: [facility] Reporting Lab: [facility] [CLIA# [id number]] [address] [place] [address] Accession [UID]: [id number] [[id number]] Receiv ed: Dec 06, 2021@16:14 Collection sample: BLOOD CUL T BOTTLE(NIRMAL/AERO)Collection date: Dec 06, 2021 15:30 Site/Specimen: BLOOD Provider: JELANI SÁNCHEZ Comment on specimen: LAC Test(s) ordered: BLOOD CULTURE AEROBIC. ........ completed: Dec 12, 2021 06:17 * BACTERIOLOGY FINAL REPORT => Dec 12, 2021 06:1 7 TECH CODE: [id number] Bacteriology Remark(s): NO GROWTH IN 5 DAYS =--=--=--=--=--=--=--=--=--=--=--=--=--= --=--=--=--=--=--=--=--=--=--=--=--=-- Performing Laboratory: Bacteriology Report Performed By: [facility] [CLIA# [id number]] [address] [facility] [place] [address]
--- OUTSIDE RECORDS SUMMARY | 2022-01-19 08:21 | XMS_ITS ---
DAILY HOSPITALIZATION DATA [facility] Encounter Summary Created on:December 07, 2021 Patient:LUCAS MEEK Sex:Male :1950 Author Organization [facility] Address [address] [place] [id number] Support Name Relationship Address Phone YUSRA MEEK Unavailable [address] [place] [address] YUSRA MEEK Unavailable [address] [place] [facility] [place] [address] CLAY MOSLEY Unavailable Unavailable SJ SANTACRUZ Unavailable [...] MEDICARE MEDICARE PART Jun 18, PART A [id number] DO KALYANI PATIENT (WNR) (M) A 2016 13A 1 UGLAS MEDICARE MEDICARE PART Jun 18, PART B [id number] DO KALYANI PATIENT (WNR) (M) B 2016 13A 1 UGLAS MEDICARE MEDICARE PART Jun 18, PART A [id number] KALYANIDO PATIENT (WNR) (M) A 2017 VH81 2 UGLAS MEDICARE MEDICARE PART Jun 18, PART B [id number] DO KALYANI PATIENT (WNR) (M) B 2017 VH81 2 UGLAS UNITED MEDICARE MCR(Jun 18 [id number] Luz MEEK PATIENT HEALTHCARE ADVANTAGE NR) 2021 37 0 [facility] (WNR) Selected Encounter This section includes the information on record at [place] for the Encounter. Date/Time Encounter Type Encounter Description Reason Provider Source Dec 07, 2021 08:24 Inpatient Visit DAILY HOSPITALIZATION DATA PM IHE Encounter Template Text not used by [place] Plan of Treatment: Future Appointments (+ 6 months) and Future Tests (+/- 45 days) The Plan of Treatment section includes future care activities for the patient from all [place] treatmentfacilities. This section includes future appointments and future orders which are active, pending orscheduled.Future Appointments This section includes appointments that were scheduled to occur 6 months from the date of the Encounter, up to a maximum of 20 appointments. The data comes from all [place] treatment facilities. Appointment Date/Time Appointment Type Appointment Facili ty Name Dec 21, 2021 08:00 AM [place] [facility] Jan 06, 2022 02:00 PM [place] [facility] Jan 10, 2022 11:30 AM [facility] Jan 24, 2022 08:00 AM [place] [facility] Feb 21, 2022 10:00 AM [place] [facility] Mar 21, 2022 10:30 AM AMBULATORY [...] the Encounter. The data comes from all [place] treatment [facility]. Test Date/Time Test Type Test Details Facility Name October 31, 2021 07:37 AM Consult Order COMMUNITY CARE-EGD [facility] Cons Desk Assistant's Choice November 15, 2021 10:37 AM Consult Order [facility] CARE-PODIATRY Cons Desk Assistant's Choice Dec 06, 2021 12:52 PM Pharmacy [place] Infusion Order [facility] Dec 06, 2021 03:24 PM [place]acy [place] [facility] Dec 06, 2021 03:40 PM [place]acy [place] Order [facility] Dec 15, 2021 08:41 AM Consult Order SPEECH PATHOLOGY [place] OUTPATIENT Cons [facility] Desk Assistant's Choice Jan 15, 2022 10:08 PM Consult Order [facility] CARE-PALLIATIVE CARE Cons Desk Assistant's Choice Lab Results: +/- 30 days of the encounter This section includes the Chemistry and Hematology Lab Results on record with [place] for the patient. Radiology Reports and Pathology Reports are provided separately, in subsequent sections.Lab Results This section contains the Chemistry/Hematology Results that were resulted 30 days before or 30 daysafter the date of the Encounter. Date/Time Source Result Type Result - Unit Interpretation Reference Range Comment Dec 15, 2021 06:43 AM [facility] CBC PROFILE Sp ecimen Type: BLOOD No comment enter ed. Ordering Provid er: ISATU TODD Report Released Date/Time: Dec 10, 2021 07:22 AM Reporting Lab: [facility] [address] [facility] [address] Performing Lab: [facility] [address] [facility] [address] WBC 5.7 4.5-11.0 RBC 4.22 L 4.23-5.66 [...] 4.4 2.2-7.6 ABSOLUTE NRBC 0.00 0-0 Dec 15, 2021 [facility] P4 GLU,BUN,CREAT,LYTES,CA Speci men Type: PLASMA 06:43 AM [facility] Comment: Tests performed on Pham Bolter Helper (405) SN:[id number] Ordering Provid er: ISATU TODD Report Released Date/Time: Dec 11, 2021 07:42 AM Reporting Lab: [facility] [address] [facility] [address] Performing Lab: [facility] [address] [facility] [address] UREA NITROGEN 9 7-25 SODIUM 137 135-145 POTASSIUM 3.8 3.5-5.0 CHLORIDE 105 100-110 CARBON DIOXIDE 26 20-30 ANION GAP 6 4-16 GLUCOSE 102 H 65-100 CREATININE 0.64 0.5-1.5 CALCIUM 8.1 L 8.5-10.5 eGFR(CKD-EPI 2020) >90.0 >60 Dec 14, 2021 [facility] CYTOGENETIC Specimen Type: ESOPHAGUS 02:59 PM [facility] FISH([facility] Comment: ~For T est: CYTOGENETIC FISH([facility]) ~FISH HER 2 NUE, FFPE See full report in [employer] Image display viewer/tab#LAB-Reference Ordering Provid er: NIURKA MILLER Report Released Date/Time: Dec 21, 2021 12:11 PM Reporting Lab: [facility] [address] [facility] [address] Performing Lab: [facility] CYTOGENETIC FISH([facility]) comment Dec 14, 2021 [place] P4 GLU,BUN,CREAT,LYTES,CA Speci men Type: PLASMA 06:27 AM [facility] Comment: Tests performed on Pham Bolter Helper (405) SN:[id number] Ordering Provid er: ISATU TODD Report Released Date/Time: Dec 11, 2021 07:42 AM Reporting Lab: [facility] [address] [facility] [address] Performing Lab: [facility] [address] [facility] [address] UREA NITROGEN 10 7-25 SODIUM 137 135-145 POTASSIUM 4.0 3.5-5.0 CHLORIDE 104 100-110 CARBON DIOXIDE 25 20-30 ANION GAP 8 4-16 GLUCOSE 99 65-100 CREATININE 0.67 0.5-1.5 CALCIUM 8.2 L 8.5-10.5 eGFR(CKD-EPI 2020) >90.0 >60 Dec 14, 2021 06:27 AM [facility] CBC PROFILE Sp ecimen Type: BLOOD No comment enter ed. Ordering Provid er: ISATU TODD Report Released Date/Time: Dec 10, 2021 07:22 AM Reporting Lab: [facility] [address] [facility] [address] Performing Lab: [facility] [address] [facility] [address] WBC 6.0 4.5-11.0 RBC 4.29 4.23-5.66 HGB [...] 0.00 0-0 Dec 13, 2021 [facility] P4 GLU,BUN,CREAT,LYTES,CA Speci men Type: PLASMA 06:34 AM [facility] Comment: Tests performed on [employer] (405) SN:[id number] Ordering Provid er: ISATU TODD Report Released Date/Time: Dec 11, 2021 07:42 AM Reporting Lab: [facility] [address] [facility] [address] Performing Lab: [facility] [address] [facility] [address] UREA NITROGEN 12 7-25 SODIUM 136 135-145 POTASSIUM 3.9 3.5-5.0 CHLORIDE 105 100-110 CARBON DIOXIDE 24 20-30 ANION GAP 7 4-16 GLUCOSE 102 H 65-100 CREATININE 0.66 0.5-1.5 CALCIUM 8.3 L 8.5-10.5 eGFR(CKD-EPI 2020) >90.0 >60 Dec 13, 2021 06:34 AM [facility] CBC PROFILE Sp ecimen Type: BLOOD No comment enter ed. Ordering Provid er: ISATU TODD Report Released Date/Time: Dec 10, 2021 07:22 AM Reporting Lab: [facility] [address] [facility] [address] Performing Lab: [facility] [address] [facility] [address] WBC 5.6 4.5-11.0 RBC 4.28 4.23-5.66 HGB [...] 0.00 0-0 Dec 12, 2021 [facility] P4 GLU,BUN,CREAT,LYTES,CA Speci men Type: PLASMA 06:21 AM [facility] Comment: Tests performed on [employer] (405) SN:[id number] Ordering Provid er: ISATU TODD Report Released Date/Time: Dec 11, 2021 07:42 AM Reporting Lab: [facility] [address] [facility] [address] Performing Lab: [facility] [address] [facility] [address] UREA NITROGEN 11 7-25 SODIUM 139 135-145 POTASSIUM 4.1 3.5-5.0 CHLORIDE 107 100-110 CARBON DIOXIDE 24 20-30 ANION GAP 8 4-16 GLUCOSE 110 H 65-100 CREATININE 0.70 0.5-1.5 CALCIUM 8.3 L 8.5-10.5 eGFR(CKD-EPI 2020) >90.0 >60 Dec 12, 2021 06:21 AM [facility] CBC PROFILE Sp ecimen Type: BLOOD No comment enter ed. Ordering Provid er: ISATU TODD Report Released Date/Time: Dec 10, 2021 07:22 AM Reporting Lab: [facility] [address] [facility] [address] Performing Lab: [facility] [address] [facility] [address] WBC 5.5 4.5-11.0 RBC 4.37 4.23-5.66 HGB [...] 0.00 0-0 Dec 12, 2021 06:00 AM [facility] MAGNESIUM Sp ecimen Type: PLASMA Comment: Testin g Performed on [employer] (405) SN:[id number] Ordering Provid er: ISATU TODD Report Released Date/Time: Dec 12, 2021 08:24 AM Reporting Lab: [place] [facility] [address] [facility] [address] Performing Lab: [place] [facility] [address] [facility] [address] MAGNESIUM 1.8 1.6-2.6 Dec 12, 2021 06:00 AM [facility] PHOSPHORUS Sp ecimen Type: PLASMA Comment: Testin g Performed on [employer] (405) SN:[id number] Ordering Provid er: ISATU TODD Report Released Date/Time: Dec 12, 2021 08:24 AM Reporting Lab: [place] [facility] [address] [facility] [address] Performing Lab: [place] [facility] [address] [facility] [address] PHOSPHORUS 3.1 2.5-5.0 Dec 11, 2021 06:15 AM [place] [facility] ELECTROLYTES Sp ecimen Type: PLASMA Comment: Tests performed on [employer] (405) SN:[id number] Ordering Provid er: ISATU TODD Report Released Date/Time: Dec 10, 2021 07:22 AM Reporting Lab: [place] [facility] [address] [facility] [address] Performing Lab: [place] [facility] [address] [facility] [address] SODIUM 137 135-145 POTASSIUM 4.3 3.5-5.0 CHLORIDE 108 100-110 CARBON DIOXIDE 20 20-30 ANION GAP 9 4-16 Dec 11, 2021 06:15 AM [place] [facility] CBC PROFILE Sp ecimen Type: BLOOD Comment: Result s checked Ordering Provid er: ISATU TODD Report Released Date/Time: Dec 10, 2021 07:22 AM Reporting Lab: [place] [facility] [address] [facility] [address] Performing Lab: [place] [facility] [address] [facility] [address] WBC 5.8 4.5-11.0 RBC 4.37 4.23-5.66 HGB [...] 11, 2021 06:00 AM [facility] PHOSPHORUS Sp ecimen Type: PLASMA Comment: Tests performed on [employer] (974) SN:[id number] Results checked Ordering Provid er: ISATU TODD Report Released Date/Time: Dec 11, 2021 07:44 AM Reporting Lab: [place] [facility] [address] [facility] [address] Performing Lab: [place] [facility] [address] [facility] [address] PHOSPHORUS 3.0 2.5-5.0 Dec 10, 2021 08:05 AM [place] [facility] MAGNESIUM Sp ecimen Type: PLASMA Comment: [place] [id number] on Dec 10, 2021@08:31 Tests performed on [employer] (405) SN:[id number] Ordering Provid er: ISATU TODD Report Released Date/Time: Dec 10, 2021 07:22 AM Reporting Lab: [place] [facility] [address] [place] [facility] [place] [address] Performing Lab: [place] [facility] [address] [place] [facility] [place] [address] MAGNESIUM 1.7 1.6-2.6 Dec 10, 2021 08:05 AM [place] [facility] PHOSPHORUS Sp ecimen Type: PLASMA Comment: [place] [id number] on Dec 10, 2021@08:31 Tests performed on [employer] (405) SN:[id number] Ordering Provid er: ISATU TODD Report Released Date/Time: Dec 10, 2021 07:22 AM Reporting Lab: [place] [facility] [address] [place] [facility] [place] [address] Performing Lab: [place] [facility] [address] [place] [facility] [place] [address] PHOSPHORUS 1.8 L 2.5-5.0 Dec 10, 2021 08:05 AM [place] UREA NITROGEN Specimen Type: PLASMA [facility] Comment: [place] [id number] on Dec 10, 2021@08:31 Tests performed on [employer] (405) SN:[id number] Ordering Provid er: ISATU TODD Report Released Date/Time: Dec 10, 2021 07:22 AM Reporting Lab: [place] [facility] [address] [place] [facility] [place] [address] Performing Lab: [place] [facility] [address] [place] [facility] [place] [address] UREA NITROGEN 8 7-25 Dec 10, 2021 08:05 AM [place] [facility] ELECTROLYTES Sp ecimen Type: PLASMA Comment: [place] [id number] on Dec 10, 2021@08:31 Tests performed on [employer] (405) SN:[id number] Ordering Provid er: ISATU TODD Report Released Date/Time: Dec 10, 2021 07:22 AM Reporting Lab: [place] [facility] [address] [facility] [address] Performing Lab: [place] [facility] [address] [facility] [address] SODIUM 139 135-145 POTASSIUM 3.7 3.5-5.0 CHLORIDE 107 100-110 CARBON DIOXIDE 24 20-30 ANION GAP 8 4-16 Dec 10, 2021 08:05 AM [place] [facility] GLUCOSE Sp ecimen Type: PLASMA Comment: [place] [id number] on Dec 10, 2021@08:31 Tests performed on [employer] (405) SN:[id number] Ordering Provid er: ISATU TODD Report Released Date/Time: Dec 10, 2021 07:22 AM Reporting Lab: [place] [facility] [address] [facility] [address] Performing Lab: [place] [facility] [address] [facility] [address] GLUCOSE 144 H 65-100 Dec 10, 2021 08:05 AM [place] [facility] CALCIUM Sp ecimen Type: PLASMA Comment: [place] [id number] on Dec 10, 2021@08:31 Tests performed on [employer] (405) SN:[id number] Ordering Provid er: ISATU TODD Report Released Date/Time: Dec 10, 2021 07:22 AM Reporting Lab: [place] [facility] [address] [facility] [address] Performing Lab: [place] [facility] [address] [facility] [address] CALCIUM 8.3 L 8.5-10.5 Dec 10, 2021 08:05 AM [place] [facility] CBC PROFILE Sp ecimen Type: BLOOD No comment enter ed. Ordering Provid er: ISATU TODD Report Released Date/Time: Dec 10, 2021 07:22 AM Reporting Lab: [place] [facility] [address] [facility] [address] Performing Lab: [place] [facility] [address] [facility] [address] WBC 7.0 4.5-11.0 RBC 4.54 4.23-5.66 HGB [...] PLASMA AM [facility] PANEL Comment: [place] [id number] on Dec 10, 2021@08:31 Tests performed on [employer] (405) SN:[id number] Ordering Provid er: ISATU TODD Report Released Date/Time: Dec 10, 2021 07:22 AM Reporting Lab: [facility] [address] [facility] [address] Performing Lab: [facility] [address] [facility] [address] CREATININE 0.78 0.5-1.5 eGFR(CKD-EPI 2020) >90.0 >60 Dec 09, 2021 06:46 AM [place] [facility] MAGNESIUM Sp ecimen Type: PLASMA Comment: Tests performed on [employer] (405) SN:[id number] Ordering Provid er: ISATU TODD Report Released Date/Time: Dec 08, 2021 10:23 AM Reporting Lab: [place] [facility] [address] [facility] [address] Performing Lab: [place] [facility] [address] [facility] [address] MAGNESIUM 1.6 1.6-2.6 Dec 09, 2021 [facility] P4 GLU,BUN,CREAT,LYTES,CA Speci men Type: PLASMA 06:46 AM [facility] Comment: Tests performed on [employer] (405) SN:[id number] Ordering Provid er: ISATU TODD Report Released Date/Time: Dec 08, 2021 05:00 PM Reporting Lab: [facility] [address] [facility] [address] Performing Lab: [facility] [address] [facility] [address] UREA NITROGEN 6 L 7-25 SODIUM 134 [...] Reporting Lab: [facility] [address] [facility] [address] Performing Lab: [facility] [address] [facility] [address] WBC 7.1 4.5-11.0 RBC 4.40 4.23-5.66 HGB [...] 0-0 Dec 08, 2021 06:39 AM [facility] MAGNESIUM Sp ecimen Type: PLASMA Comment: Testin g Performed on [employer] (405) SN:[id number] Ordering Provid er: ISATU TODD Report Released Date/Time: Dec 07, 2021 10:32 AM Reporting Lab: [facility] [address] [facility] [address] Performing Lab: [facility] [address] [facility] [address] MAGNESIUM 1.5 L 1.6-2.6 Dec 08, 2021 06:39 AM [facility] CBC PROFILE Sp ecimen Type: BLOOD No comment enter ed. Ordering Provid er: ISATU TODD Report Released Date/Time: Dec 07, 2021 10:32 AM Reporting Lab: [facility] [address] [facility] [address] Performing Lab: [facility] [address] [facility] [address] WBC 8.4 4.5-11.0 RBC 4.75 4.23-5.66 HGB [...] ABSOLUTE NRBC 0.00 0-0 Dec 08, 2021 [facility] GLU,BUN,CREAT,LYTES,CA Speci men Type: PLASMA 06:39 AM [facility] Comment: Testin g Performed on [employer] (405) SN:[id number] Ordering Provid er: ISATU TODD Report Released Date/Time: Dec 07, 2021 10:32 AM Reporting Lab: [facility] [address] [facility] [address] Performing Lab: [facility] [address] [facility] [address] UREA NITROGEN 6 L 7-25 SODIUM 136 135-145 POTASSIUM 3.3 L 3.5-5.0 CHLORIDE 104 100-110 CARBON DIOXIDE 22 20-30 ANION GAP 10 4-16 GLUCOSE 133 H 65-100 CREATININE 0.76 0.5-1.5 CALCIUM 8.4 L 8.5-10.5 eGFR(CKD-EPI 2020) >90.0 >60 Dec 07, 2021 06:42 [facility] LIVER PROFILE Specimen Typ e: PLASMA AM [facility] Comment: Tests performed on [employer] (405) SN:[id number] Ordering Provid er: PORFIRIO WALTERS Report Released Date/Time: Dec 06, 2021 06:57 PM Reporting Lab: [facility] [address] [facility] [address] Performing Lab: [facility] [address] [facility] [address] PROTEIN, TOTAL 5.7 L 6.0-8.5 ALBUMIN 2.4 L 3.2-5.0 BILIRUBIN, TOTAL 0.4 0.2-1.2 ALKALINE PHOSPHATASE 109 40-150 ALT(SGPT) 10 7-52 AST(SGOT) 15 5-34 FIB-4 SCORE 1.92 <2.67 Dec 07, 2021 [facility] P[facility] GLU,BUN,CREAT,LYTES,CA Speci men Type: PLASMA 06:42 AM [facility] Comment: Tests performed on [employer] (405) SN:[id number] Ordering Provid er: PORFIRIO WALTERS Report Released Date/Time: Dec 06, 2021 06:57 PM Reporting Lab: [place] [facility] [address] [facility] [address] Performing Lab: [place] [facility] [address] [facility] [address] UREA NITROGEN 9 7-25 SODIUM 135 135-145 POTASSIUM 3.5 3.5-5.0 CHLORIDE 103 100-110 CARBON DIOXIDE 22 20-30 ANION GAP 10 4-16 GLUCOSE 92 65-100 CREATININE 0.73 0.5-1.5 CALCIUM 8.0 L 8.5-10.5 eGFR(CKD-EPI 2020) >90.0 >60 Dec 07, 2021 06:42 AM [place] CBC PROFILE Specimen Type: BLOOD [facility] No comment enter ed. Ordering Provid er: PORFIRIO WALTERS Report Released Date/Time: Dec 06, 2021 06:57 PM Reporting Lab: [place] [facility] [address] [facility] [address] Performing Lab: [facility] [address] [facility] [address] WBC 5.7 4.5-11.0 RBC 4.15 L 4.23-5.66 [...] [facility] %) AUTOMATED Comment: Tests performed on [employer] (405) SN:[id number] Ordering Provid er: ISATU TODD Report Released Date/Time: Dec 07, 2021 10:28 AM Reporting Lab: [place] [facility] [address] [facility] [address] Performing Lab: [place] [facility] [address] [facility] [address] RETICULOCYTES (%) AUTOMATED 1.23 0. 6-2.0 RETICULOCYTES (ABS) AUTOMATED 0.052 0.030-0.090 Dec 06, 2021 09:45 [place] MRSA SURVL NARES Specimen Ty pe: NARES PM [facility] DNA No comment enter ed. Ordering Provid er: ALVARO VARGHESE Report Released Date/Time: Dec 07, 2021 02:20 AM Reporting Lab: [place] [facility] [address] [facility] [address] Performing Lab: [place] [facility] [address] [facility] [address] MRSA SURVL NARES DNA NEGATIVE NEGATIVE Dec 06, 2021 06:00 [place] URINALYSIS W/REFLEX TO Speci men Type: URINE PM [facility] CULTURE No comment enter ed. Ordering Provid er: JELANI SÁNCHEZ Report Released Date/Time: Dec 06, 2021 11:57 AM Reporting Lab: [place] [facility] [address] [facility] [address] Performing Lab: [place] [facility] [address] [facility] [address] URINE COLOR Arlin YELLOW SPECIFIC GRAVITY 1.029 [...] 21, R[place] VARIANT Comment: https://www.cdc.gov/coronavirus/2019-ncov/cases-updates/variant- surveillance/variant-info.html The [employer] SuperTurbo SARS CoV 2 VocalIQ Research Assay-GX is a next-generation sequencing (NGS) assa 2021 [facility] SEQUENCING y that determine s the complete genome sequence of the SARS-CoV-2 virus. The assay contains variant-tolerant primers to broaden and improve the coverage for variant detection and increase the sensitivity 12:00 [facility] PNL(WH) of the panel to enable detection from lower viral titer samples. The assay is run on the [employer] Sequencer, which performs automated library preparation, sequencing, analysis, and reporting. PM The sequence an alysis includes determination of viral phylogenetic lineage by comparison to the reference strain Wuhan-Hu-1, GenBank: [id number]. Sequence determination may not be possible owing [...] and its performance characteristics determined by the [facility] Molecular Diagnostics Laboratory, which is certified under the Clinical Laboratory Improveme nt Amendments (C MARCO) as qualified to perform high complexity clinical laboratory testing. This test is validated for clinical use at [facility] and should not be regarded as investigational or for research. The FDA does not require this test to go through premarket FDA review, and therefore it has not been cleared or approved by the FDA. This report was reviewed and approved by the on-service pathologist. Ordering Provid er: JELANI SÁNCHEZ Report Released Date/Time: Dec 06, 2021 01:13 PM Reporting Lab: [facility] [address] [facility] [address] Performing Lab: [facility] [address] [facility] [address] SARS-CoV-2 CLADE() 22C (OMICRON) SARS-CoV-2 LINEAGE() BA.2.12.1 Dec 06, 2021 12:00 [facility] COVID-19 AG SCREEN Specimen Type: NASAL CAVITY PM [facility] PANEL BINAX(405) Comment: Testi ng Performed By: Mike Briscoe Ordering Provid er: JELANI SÁNCHEZ Report Released Date/Time: Dec 08, 2021 08:23 AM Reporting Lab: [facility] [address] [facility] [address] Performing Lab: [facility] [address] [facility] [address] COVID-19 AG SCRN(wrj BINAX) POSITIVE HH NE G Dec 06, 2021 12:00 PM [facility] TROPONIN II Sp ecimen Type: PLASMA Comment: Tests performed on [employer]am [employer]ter Helper (405) SN:[id number] Ordering Provid er: JELANI SÁNCHEZ Report Released Date/Time: Dec 06, 2021 11:57 AM Reporting Lab: [facility] [address] [facility] [address] Performing Lab: [facility] [address] [facility] [address] TROPONIN II 0.03 0.00-0.29 Dec 06, 2021 [place] P4 GLU,BUN,CREAT,LYTES,CA Speci men Type: PLASMA 12:00 PM [facility] Comment: Testin g Performed on Pham Bolter Helper (405) SN:[id number] Ordering Provid er: JELANI SÁNCHEZ Report Released Date/Time: Dec 06, 2021 11:57 AM Reporting Lab: [place] [facility] [address] [facility] [address] Performing Lab: [place] [facility] [address] [facility] [address] UREA NITROGEN 13 7-25 SODIUM 138 135-145 POTASSIUM 3.8 3.5-5.0 CHLORIDE 103 100-110 CARBON DIOXIDE 23 20-30 ANION GAP 12 4-16 GLUCOSE 105 H 65-100 CREATININE 0.90 0.5-1.5 CALCIUM 8.7 8.5-10.5 eGFR(CKD-EPI 2020) >90.0 >60 Dec 06, 2021 12:00 PM [facility] LIVER PROFILE Sp ecimen Type: PLASMA Comment: Testin g Performed on Pham Bolter Helper (405) SN:[id number] Ordering Provid er: JELANI SÁNCHEZ Report Released Date/Time: Dec 06, 2021 11:57 AM Reporting Lab: [facility] [address] [facility] [address] Performing Lab: [facility] [address] [facility] [address] PROTEIN, TOTAL 6.6 6.0-8.5 ALBUMIN 2.8 L 3.2-5.0 BILIRUBIN, TOTAL 0.6 0.2-1.2 ALKALINE PHOSPHATASE 134 40-150 ALT(SGPT) 13 7-52 AST(SGOT) 18 5-34 FIB-4 SCORE 1.94 <2.67 Dec 06, 2021 [facility] COVID-19+FLU/RSV DIAGNOSTIC Spe cimen Type: NASOPHARYNX 12:00 PM [facility] PANEL(405) Comment: Tests performed on ApniCure Genexpert (405) Critical results called to and read back by: ALESHIA WILKINSON RN 12/06/21 @ 1312 Ordering Provid er: JELANI SÁNCHEZ Report Released Date/Time: Dec 06, 2021 11:57 AM Reporting Lab: [facility] [address] [facility] [address] Performing Lab: [facility] [address] [facility] [address] FLU A(PCR) NEGATIVE NEGATIVE FLU B(PCR) NEGATIVE NEGATIVE RSV(PCR) NEGATIVE NEGATIVE COVID-19(IIF-gaa-AJPLOSWSM) DETECTED HH NO T DETECTED Dec 06, 2021 12:00 PM [facility] BNP(P) Sp ecimen Type: PLASMA Comment: Tests performed on Pham Bolter Helper (405) SN:[id number] Ordering Provid er: JELANI SÁNCHEZ Report Released Date/Time: Dec 06, 2021 11:57 AM Reporting Lab: [facility] [address] [facility] [address] Performing Lab: [facility] [address] [facility] [address] BNP(P) 224.8 H 10-100 Dec 06, 2021 12:00 PM [facility] CBC PROFILE Sp ecimen Type: BLOOD No comment enter ed. Ordering Provid er: JELANI SÁNCHEZ Report Released Date/Time: Dec 06, 2021 11:57 AM Reporting Lab: [facility] [address] [facility] [address] [facility] [address] [facility] [address] WBC 7.2 4.5-11.0 RBC 4.86 4.23-5.66 HGB [...] WHITE 2021 11:00 /min mm[Hg] [facility] Dec 07, 95 144/57 18 /min 98 % 0 WHITE 2021 03:08 /min mm[Hg] [facility] PM T [facility] Dec 07, 96.3 F WHITE 2021 06:07 [facility] Dec 07, 88 141/85 16 /min 95 % 0 WHITE 2021 06:03 /min mm[Hg] [facility] Dec 07, 6 WHITE 2021 12:47 [facility] Social History: Smoking Status (Most current) and Tobacco Use (All prior to encounter date) This section includes the most current, and the historical, smoking and tobacco-related health factors from the [place] facility where the Encounter took place.Current Smoking Status This section includes the most current smoking, or tobacco-related health factor, from the [place] facility where the Encounter took place. Date/Time Current Smoking Status Comment Facility Dec 06, 2021 11:40 AM QUIT TOBACCO USE > 7 YEARS AGO [facility] Tobacco Use History This section includes a history of the smoking, or tobacco- related health factors, that were collected on or before the date of the Encounter. The data comes from the [place] facility where the Encounter took place. Date/Time Smoking Status/Tobacco Use Comment [facility] Apr 01, 2020 01:16 PM [...] TOBACCO USE IN PAST YEAR [facility] May 01, 2016 03:11 PM QUIT TOBACCO USE IN PAST YEAR [facility] May 01, 2016 11:19 AM QUIT TOBACCO USE IN PAST YEAR [facility] Mar 16, 2016 12:50 PM V1-PT DECLINES REF TO TOBACCO [facility] CESS PRGM Mar 16, 2016 12:50 PM V1-PT THINKING ABOUT QUIT [facility] TOBACCO USE Aug 12, 2015 08:48 AM CURRENT SMOKER [facility] Radiology Reports: +/- 30 days of [...] the Encounter. The data comes from all [place] treatment facilities. Date/Time Radiology Report Provider Source Dec 13, 2021 12:57 PM MRI ABDOMEN W/WO CONTRAST: MARYELLEN LONG LUCAS LARES N [id number] -1950 [facility] Exm Date: DEC 13, 2021@12:57 Req Phys: ISATU TODD Loc: OP Unknown/0 12-15-2021@13:20 Img Loc: MRI IMAGING (OOS) Service: ZZGENERAL MEDICINE (Case [id number] COMPLETE) MRI ABDOMEN W/WO CONTRAST (M RI Detailed) CPT:40784 Reason for Study: further characterization of a [...] new lyphadenopathy REQUESTING MD: Isatu Todd PAGER: [phone] PHONE: [phone] Weight: 232.2 lb [105.32 kg] (12/12/2021 05:00) [...] 15, 2021 Date Verified: DEC 15, 2021 As400 Programmer Analyst E-Sig:/ES/MARYELLEN LONG Report: MRI ABDOMEN W/WO [...] MALIGNANCY Primary Interpreting Staff: Staff AMELIA THOMAS (As400 Programmer Analyst) / Dec 10, 2021 09:[address] ABDOMEN & PELVIS: [facility] KALYAN[facility] N [id number] -1950 [facility] Exm Date: DEC 10, 2021@09:30 Req Phys: ISATU TODD Loc: 1S MED/12-10@10:57 Img Loc: CT SCAN (OOS) Service: [facility] MEDICINE (Case [id number] COMPLETE) CT ABD & PELVIS WITHOUT CONT RAST (CT Detailed) CPT:36882 Reason for Study: 71 yo male with [...] INDEX - NO HEIGHTS FOUND Pager number: [phone] STAT orders MUST be call ed to RADIOLOGY [phone] to speak to the appropriate inspector technician. Report Status: Verified Date Reported: DEC 10, 2021 Date Verified: DEC 10, 2021 As400 Programmer Analyst E-Sig: Report: EXAM: CT abdomen and [...] ph nodes. READING PHYSICIAN: Ramone Munoz D.O. -[phone] 12/10/2021 10:55 EDT [facility] National Teleradiology Program [phone] (For Medical Practitioner Use Only ) [address], [facility] [address], [address] [place] [address] Attention Patients / Veterans: If you have ques tions or concerns about these test results, please contact your o rdering provider or primary care team. Primary Diagnostic Code: SIGNIFICANT ABNORMALIT Y, ATTN NEEDED Primary Interpreting Staff: RADIOLOGY,OUTSIDE SERVICE, Staff Physician / Dec 09, 2021 07:34 AM BASW (MODIFIED): JESSIE CHENEY [facility] LUCAS MEEK N [id number] -1950 M [facility] Exm Date: DEC 09, 2021@07:34 Req Phys: ISATU TODD Loc: 1S /12-09@11:26 Img Loc: XRAY (OOS) Service: [facility] MEDICINE (Case [id number] COMPLETE) BASW (MODIFIED) (RAD Detaile d) CPT:28318 Contrast Media : Barium Reason for Study: dysphagia ?esophageal spasm Clinical History: Report Status: Verified Date Reported: DEC 09, 2021 Date Verified: DEC 09, 2021 As400 Programmer Analyst E-Sig:/ES/JESSIE CHENEY Report: BASPrincess (MODIFIED) , 12/09/2021 [...] REQUIRED Primary Interpreting Staff: JESSIE CHENEY, RADIOLOGIST (As400 Programmer Analyst) /TLC Dec 06, 2021 12:[address] CHEST (INCLUDES ADRENALS): JESSIE CHENEY [facility] LUCAS MEEK N [id number] -1950 M [facility] Exm Date: DEC 06, 2021@12:59 Req Phys: GONZALOJELANI ORLANDO Loc: [facility] ED DAYS M 1RD (Req'g Loc) Img Loc: CT SCAN (OOS) Service: Unknown (Case [id number] COMPLETE) CT THORAX W/O CONT (CT Detai led) CPT:44780 Reason for Study: Opacification right chest Clinical History: No contrast allergy BUN: 13 (12/06/21 12:00) CREATI: 0.90 (12/06/21 12:00) eGFR 05/16/21 09:43 52 L Weight: 232.6 lb [105.51 kg] (12/06/2021 11:40) BODY MASS INDEX - NO HEIGHTS FOUND Pager number: [phone] STAT orders MUST be called t o RADIOLOGY [phone] to speak to the appropriate inspector technician. Indications - Other: Opacification right chest, covid positive, lung cancer histo Report Status: Verified Date Reported: DEC 06, 2021 Date Verified: DEC 06, 2021 As400 Programmer Analyst E-Sig:/ES/JESSIE CHENEY Report: CT THORAX W/O [...] REQUIRED Primary Interpreting Staff: JESSIE CHENEY, RADIOLOGIST (As400 Programmer Analyst) Primary Interpreting Resident: PRINCE CHAMPION, Resident /BR Dec 06, 2021 11:58 AM CHEST SINGLE VIEW: JESSIE CHENEY LUCAS MEEK Lei [id number] -1950 M [facility] Exm Date: DEC 06, 2021@11:58 Req Phys: JELANI SÁNCHEZ Pat Loc: [facility] ED DAYS M 1RD (Req'g Loc) Img Loc: XRAY (OOS) Service: Unknown (Case [id number] COMPLETE) CHEST SINGLE VIEW (RAD Detai led) CPT:82002 Proc Modifiers : PORTABLE EXAM Reason for Study: SOB, home covid test positive Clinical History: Report Status: Verified Date Reported: DEC 06, 2021 Date Verified: DEC 06, 2021 As400 Programmer Analyst E-Sig:/ES/JESSIE CHENEY Report: Exam type: Chest [...] REQUIRED Primary Interpreting Staff: JESSIE CHENEY, RADIOLOGIST (As400 Programmer Analyst) /TLC Pathology Reports: +/- 30 days of [...] the Encounter. The data comes from all [place] treatment facilities. Date/Time Pathology Report Provider Source Jan 03, 2022 10:28 AM LR SURGICAL PATHOLOGY REPORT: STEFANY MILLER [place] LOCAL TITLE: LR SURGICAL PATHOLOGY REPORT [facility] STANDARD TITLE: PATHOLOGY REPORT DATE OF NOTE: JAN 03, 2022@10:28:01 ENTRY DATE: JAN 03, 2022@10:28:01 AUTHOR: NIURKA MILLER EXP COSIGNER: URGENCY: STATUS: COMPLETED $APHDR Reporting Lab: [facility] [CLIA# [id number]] [address] [place] [address] - - - - - - [...] automatically d ocumented from SURGERY package case #[id number] Field (#32) PRINCIPAL PRE-OP DIAGNOSIS, (#.72) OTHER [...] automatically d ocumented from SURGERY package case #[id number] Field (#34) PRINCIPAL POST-OP DIAG, (#.74) OTHER [...] Label: Lucas Meek Paperwork: Lucas Meek Cassette: [id number];..;KALYANI;.;405;[phone] Specimen is labeled: ES bx Received in formalin are several pieces of pale boyd and brown tissue, 1.2 x 0.7 cm in aggregate. Submitted entirely in 1 cassette [id number];..;KALYANI;.;405;[id number] SAW 12/15/2021 Microscopic exam: *+* MODIFIED REPORT [...] in rendering the final pathologic diagnosis. [address] [address] CPT: 52622 /emely/ NIURKA Yeung MD Signed Jan 03, 2022@10:28 Performing Laboratory: Surgical Pathology Report Performed By: [facility] [CLIA# [id number]] [address] [place] [address] $FTR - - - - - [...] - - LUCAS MEEK STANDARD FORM 515 ID:[id number] SEX:M :1950 AGE: 71 LOC: SDM END PCP: Isatu Todd /emely/ NIURKA MILLER Staff Signed: 01/03/2022 10:28 Dec 21, 2021 11:46 AM LR SURGICAL PATHOLOGY REPORT: STEFANY MILLER [place] LOCAL TITLE: LR SURGICAL PATHOLOGY REPORT [facility] STANDARD TITLE: PATHOLOGY REPORT DATE OF NOTE: DEC 21, 2021@11:46:59 ENTRY DATE: DEC 21, 2021@11:46:59 AUTHOR: NIURKA MILLER EXP COSIGNER: URGENCY: STATUS: COMPLETED $APHDR Reporting Lab: [facility] [CLIA# [id number]] [address] [place] [address] - - - - - - [...] automatically d ocumented from SURGERY package case #[id number] Field (#32) PRINCIPAL PRE-OP DIAGNOSIS, (#.72) OTHER [...] automatically d ocumented from SURGERY package case #[id number] Field (#34) PRINCIPAL POST-OP DIAG, (#.74) OTHER [...] Label: Lucas Meek Paperwork: Lucas Meek Cassette: [id number];..;KALYANI;.;405;[id number] Specimen is labeled: ES bx Received in formalin are several pieces of pale boyd and brown tissue, 1.2 x 0.7 cm in aggregate. Submitted entirely in 1 cassette [id number];..;KALYANI;.;405;[id number] SAW 12/15/2021 Microscopic exam: DIAGNOSIS: A. 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 Kendell long. TIARA Coombs was notified on 12/21/21. The attending pathologist who signature mansoor ears on this report has reviewed all diagnostic slides and has edited t he gross and/or microscopic portion of this report in rendering the final pathologic diagnosis. [address] [address] CPT: 15987 /emely/ NIURKA Yeung MD Signed Dec 21, 2021@11:46 Performing Laboratory: Surgical Pathology Report Performed By: [facility] [CLIA# [id number]] [address] [place] [address] $FTR - - - - - [...] - - LUCAS MEEK STANDARD FORM 515 ID:[id number] SEX:M :1950 AGE: 71 LOC: [facility] END PCP: Isatu Todd /charmaine Yeung MD Signed: 12/21/2021 11:46 Dec 06, 2021 03:30 PM LR MICROBIOLOGY REPORT: [facility] Reporting Lab: [facility] [CLIA# [id number]] [address] [place] [address] Accession [UID]: [id number] [[id number]] Receiv ed: Dec 06, 2021@16:14 Collection sample: BLOOD CUL T BOTTLE(NIRMAL/AERO)Collection date: Dec 06, 2021 15:30 Site/Specimen: BLOOD Provider: JELANI SÁNCHEZ Comment on specimen: LAC Test(s) ordered: BLOOD CULTURE ANAEROBI C....... completed: Dec 12, 2021 06:18 * BACTERIOLOGY FINAL REPORT => Dec 12, 2021 06:1 8 TECH CODE: 48934 Bacteriology Remark(s): NO GROWTH IN 5 DAYS =--=--=--=--=--=--=--=--=--=--=--=--=--= --=--=--=--=--=--=--=--=--=--=--=--=-- Performing Laboratory: Bacteriology Report Performed By: [facility] [CLIA# [id number]] [address] [place] [address] Dec 06, 2021 03:30 PM LR MICROBIOLOGY REPORT: [facility] Reporting Lab: [facility] [CLIA# [id number]] [address] [place] [address] Accession [UID]: [id number] [[id number]] Receiv ed: Dec 06, 2021@16:14 Collection sample: BLOOD CUL T BOTTLE(NIRMAL/AERO)Collection date: Dec 06, 2021 15:30 Site/Specimen: BLOOD Provider: JELANI SÁNCHEZ Comment on specimen: LAC Test(s) ordered: BLOOD CULTURE AEROBIC. ........ completed: Dec 12, 2021 06:17 * BACTERIOLOGY FINAL REPORT => Dec 12, 2021 06:1 7 TECH CODE: [id number] Bacteriology Remark(s): NO GROWTH IN 5 DAYS =--=--=--=--=--=--=--=--=--=--=--=--=--= --=--=--=--=--=--=--=--=--=--=--=--=-- Performing Laboratory: Bacteriology Report Performed By: [facility] [CLIA# [id number]] [address] [place] [facility] [address]
--- OUTSIDE RECORDS SUMMARY | 2022-01-19 08:22 | XMS_ITS | Encounter Summary ---
:1950 Author Organization [facility] Address [address] [place] [id number] Support Name Relationship Address Phone YURSA MEEK Unavailable [address] [place] [address] YUSRA MEEK Unavailable [address] [place] [facility] [place] [address] CLAY MOSLEY Unavailable Unavailable SJ SANTACRUZ Unavailable [...] MEDICARE MEDICARE PART Jun 18, PART A [id number] DO KALYANI PATIENT (WNR) (M) A 2016 13A 1 UGLAS MEDICARE MEDICARE PART Jun 18, PART B [id number] DO KALYANI PATIENT (WNR) (M) B 2016 13A 1 LAS MEDICARE MEDICARE PART Jun 18, PART A [id number] KALYANIDO PATIENT (WNR) (M) A 2017 VH81 2 LAS MEDICARE MEDICARE PART Jun 18, PART B [id number] DO KALYANI PATIENT (WNR) (M) B 2017 VH81 2 UGLAS UNITED MEDICARE MCR(Jun 18 [id number] Luz MEEK PATIENT HEALTHCARE ADVANTAGE NR) 2021 37 0 LAS [facility] (WNR) Selected Encounter This section includes the information on record at [place] for the Encounter. Date/Time Encounter Type Encounter Reason Provider Source Description Dec 08, 2021 [facility] BY PHARM CLINICAL PHARMACY ICD-10-CM J18.9 EVA GUZMAN 08:24 AM [facility] PATIENTS 15 MIN Pneumonia, TE A unspecified organism with Provider Comments: Pneumonia, unspecified organism IHE Encounter Template Text not used by [place] Assessments - Encounter Diagnoses This section includes the primary and secondary diagnoses documented for the Encounter. Date/Time Primary/Secondary Diagnosis Name Provider Source Diagnosis Dec 08, 2021 PRIMARY Pneumonia, MINGO GUZMAN 08:57 AM unspecified E A T [facility] organism Plan of Treatment: Future Appointments (+ 6 months) and Future Tests (+/- 45 days) The Plan of Treatment section includes future care activities for the patient from all [place] treatmentfacilities. This section includes future appointments and future orders which are active, pending orscheduled.Future Appointments This section includes appointments that were scheduled to occur 6 months from the date of the Encounter, up to a maximum of 20 appointments. The data comes from all [place] treatment facilities. Appointment Date/Time Appointment Type Appointment Facili ty Name Dec 21, 2021 08:00 AM [facility] Jan 06, 2022 02:00 PM AMBULATORY - REHAB MEDICINE [place] [facility] Jan 10, 2022 11:30 AM AMBULATORY - MEDICINE [facility] Jan 24, 2022 08:00 AM [place] [facility] Feb 21, 2022 10:00 AM [facility] SURGERY [facility] Mar 21, 2022 10:30 AM AMBULATORY [...] the Encounter. The data comes from all [place] treatment facilities. Test Date/Time Test Type Test Details Facility Name October 31, 2021 07:37 AM Consult Order [facility] Cons Corporate Sales Trainer's Choice November 15, 2021 10:37 AM Consult Order [facility] CARE-PODIATRY Cons Corporate Sales Trainer's Choice Dec 06, 2021 12:52 PM Pharmacy - [place] Infusion Order [facility] Dec 06, 2021 03:24 PM Pharmacy - [place] [facility] Dec 06, 2021 03:40 PM Pharmacy - [place] Order [facility] Dec 15, 2021 08:41 AM Consult Order SPEECH PATHOLOGY [place] OUTPATIENT Cons [facility] Corporate Sales Trainer's Choice Jan 15, 2022 10:08 PM Consult Order [facility] CARE-PALLIATIVE CARE Cons Corporate Sales Trainer's Choice Lab Results: +/- 30 days of [...] [facility]ALTH CARE CENTER Comment: Tests performed on AtlanteTrek (405) SN:[id number] Ordering Provid er: ISATU TODD Report Released Date/Time: Dec 11, 2021 07:42 AM Reporting Lab: [place] [facility] [address] [facility] [address] Performing Lab: [place] [facility] [address] [facility] [address] UREA NITROGEN 9 7-25 SODIUM 137 135-145 POTASSIUM 3.8 3.5-5.0 CHLORIDE 105 100-110 CARBON DIOXIDE 26 20-30 ANION GAP 6 4-16 GLUCOSE 102 H 65-100 CREATININE 0.64 0.5-1.5 CALCIUM 8.1 L 8.5-10.5 eGFR(CKD-EPI 2020) >90.0 >60 Dec 15, 2021 06:43 AM [place] [facility] CBC PROFILE Sp ecimen Type: BLOOD No comment enter ed. Ordering Provid er: ISATU TODD Report Released Date/Time: Dec 10, 2021 07:22 AM Reporting Lab: [place] [facility] [address] [facility] [address] Performing Lab: [place] [facility] [address] [facility] [address] WBC 5.7 4.5-11.0 RBC 4.22 L 4.23-5.66 [...] NRBC 0.00 0-0 Dec 14, 2021 [facility] CYTOGENETIC Specimen Type: ESOPHAGUS 02:59 PM [facility] FISH([facility] Comment: ~For T est: CYTOGENETIC FISH([facility]) ~FISH HER 2 NUE, FFPE See full report in [place] Image display viewer/tab#LAB-Reference Ordering Provid er: NIURKA MILLER Report Released Date/Time: Dec 21, 2021 12:11 PM Reporting Lab: [facility] [address] [facility] [address] Performing Lab: [facility] CYTOGENETIC FISH([facility] comment Dec 14, 2021 [place] P4 GLU,BUN,CREAT,LYTES,CA Speci men Type: PLASMA 06:27 AM [facility] Comment: Tests performed on AtlanteTrek (405) SN:[id number] Ordering Provid er: ISATU TODD Report Released Date/Time: Dec 11, 2021 07:42 AM Reporting Lab: [facility] [address] [facility] [address] Performing Lab: [facility] [address] [facility] [address] UREA NITROGEN 10 7-25 SODIUM 137 135-145 [...] Reporting Lab: [facility] [address] [facility] [address] Performing Lab: [facility] [address] [facility] [address] WBC 6.0 4.5-11.0 RBC 4.29 4.23-5.66 HGB [...] ABSOLUTE NRBC 0.00 0-0 Dec 13, 2021 [facility] P4 GLU,BUN,CREAT,LYTES,CA Speci men Type: PLASMA 06:34 AM [facility] Comment: Tests performed on AtlanteTrek (405) SN:[id number] Ordering Provid er: ISATU TODD Report Released Date/Time: Dec 11, 2021 07:42 AM Reporting Lab: [facility] [address] [facility] [address] Performing Lab: [facility] [address] [facility] [address] UREA NITROGEN 12 7-25 SODIUM 136 135-145 [...] Lab: [facility] [address] [facility] [address] Performing Lab: [facility] [address] [facility] [address] WBC 5.6 4.5-11.0 RBC 4.28 4.23-5.66 HGB [...] HEALTH CARE CENTER Comment: Tests performed on AtlanteTrek (405) SN:[id number] Ordering Provid er: ISATU TODD Report Released Date/Time: Dec 11, 2021 07:42 AM Reporting Lab: [facility] [address] [facility] [address] Performing Lab: [facility] [address] [facility] [address] UREA NITROGEN 11 7-25 SODIUM 139 135-145 POTASSIUM 4.1 3.5-5.0 CHLORIDE 107 100-110 CARBON DIOXIDE 24 20-30 ANION GAP 8 4-16 GLUCOSE 110 H 65-100 CREATININE 0.70 0.5-1.5 CALCIUM 8.3 L 8.5-10.5 eGFR(CKD-EPI 2020) >90.0 >60 Dec 12, 2021 06:21 AM [facility] CBC PROFILE Sp ecimen Type: BLOOD No comment enter ed. Ordering Provid er: ISATU TODD Report Released Date/Time: Dec 10, 2021 07:22 AM Reporting Lab: [facility] [address] [facility] [address] Performing Lab: [facility] [address] [facility] [address] WBC 5.5 4.5-11.0 RBC 4.37 4.23-5.66 HGB [...] Type: PLASMA Comment: Testin g Performed on AtlanteTrek (405) SN:[id number] Ordering Provid er: ISATU TODD Report Released Date/Time: Dec 12, 2021 08:24 AM Reporting Lab: [place] [facility] [address] [facility] [address] Performing Lab: [facility] [address] [facility] [address] MAGNESIUM 1.8 1.6-2.6 Dec 12, 2021 06:00 AM [place] [facility] PHOSPHORUS Sp ecimen Type: PLASMA Comment: Testin g Performed on AtlanteTrek (405) SN:[id number] Ordering Provid er: ISATU TODD Report Released Date/Time: Dec 12, 2021 08:24 AM Reporting Lab: [place] [facility] [address] [facility] [address] Performing Lab: [place] [facility] [address] [facility] [address] PHOSPHORUS 3.1 2.5-5.0 Dec 11, 2021 06:15 AM [place] [facility] ELECTROLYTES Sp ecimen Type: PLASMA Comment: Tests performed on AtlanteTrek (405) SN:[id number] Ordering Provid er: ISATU TODD Report Released Date/Time: Dec 10, 2021 07:22 AM Reporting Lab: [place] [facility] [address] [facility] [address] Performing Lab: [facility] [address] [facility] [address] SODIUM 137 135-145 POTASSIUM 4.3 3.5-5.0 CHLORIDE 108 100-110 CARBON DIOXIDE 20 20-30 ANION GAP 9 4-16 Dec 11, 2021 06:15 AM [facility] CBC PROFILE Sp ecimen Type: BLOOD Comment: Result s checked Ordering Provid er: ISATU TODD Report Released Date/Time: Dec 10, 2021 07:22 AM Reporting Lab: [facility] [address] [facility] [address] Performing Lab: [facility] [address] [facility] [address] WBC 5.8 4.5-11.0 RBC 4.37 4.23-5.66 HGB [...] 0.00 0-0 Dec 11, 2021 06:00 AM [facility] PHOSPHORUS Sp ecimen Type: PLASMA Comment: Tests performed on AtlanteTrek (405) SN:[id number] Results checked Ordering Provid er: ISATU TODD Report Released Date/Time: Dec 11, 2021 07:44 AM Reporting Lab: [place] [facility] [address] [place] [facility] [place] [address] Performing Lab: [place] [facility] [address] [place] [facility] [place] [address] PHOSPHORUS 3.0 2.5-5.0 Dec 10, 2021 08:05 AM [place] [facility] MAGNESIUM Sp ecimen Type: PLASMA Comment: [place] [id number] on Dec 10, 2021@08:31 Tests performed on Pham [employer] Perioperative (405) SN:[id number] Ordering Provid er: ISATU TODD Report Released Date/Time: Dec 10, 2021 07:22 AM Reporting Lab: [place] [facility] [address] [place] [facility] [place] [address] Performing Lab: [place] [facility] [address] [place] [facility] [place] [address] MAGNESIUM 1.7 1.6-2.6 Dec 10, 2021 08:05 AM [place] [facility] PHOSPHORUS Sp ecimen Type: PLASMA Comment: [place] [id number] on Dec 10, 2021@08:31 Tests performed on Pham [employer] (405) SN:[id number] Ordering Provid er: ISATU TODD Report Released Date/Time: Dec 10, 2021 07:22 AM Reporting Lab: [place] [facility] [address] [place] [facility] [place] [address] Performing Lab: [place] [facility] [address] [place] [facility] [place] [address] PHOSPHORUS 1.8 L 2.5-5.0 Dec 10, 2021 08:05 AM [place] UREA NITROGEN Specimen Type: PLASMA [facility] Comment: [place] [id number] on Dec 10, 2021@08:31 Tests performed on Pham [employer] Per[employer] (405) SN:[id number] Ordering Provid er: ISATU TODD Report Released Date/Time: Dec 10, 2021 07:22 AM Reporting Lab: [place] [facility] [address] [place] [facility] [place] [address] Performing Lab: [place] [facility] [address] [place] [facility] [place] [address] UREA NITROGEN 8 7-25 Dec 10, 2021 08:05 AM [place] [facility] CALCIUM Sp ecimen Type: PLASMA Comment: [place] [id number] on Dec 10, 2021@08:31 Tests performed on Pham [employer] (405) SN:[id number] Ordering Provid er: ISATU TODD Report Released Date/Time: Dec 10, 2021 07:22 AM Reporting Lab: [place] [facility] [address] [place] [facility] [place] [address] Performing Lab: [place] [facility] [address] [place] [facility] [place] [address] CALCIUM 8.3 L 8.5-10.5 Dec 10, 2021 08:05 [place] CREATININE WITH eGFR Specime n Type: PLASMA AM [facility] PANEL Comment: [place] [id number] on Dec 10, 2021@08:31 Tests performed on AtlanteTrek (405) SN:[id number] Ordering Provid er: ISATU TODD Report Released Date/Time: Dec 10, 2021 07:22 AM Reporting Lab: [place] [facility] [address] [place] [facility] [place] [address] Performing Lab: [place] [facility] [address] [place] [facility] [place] [address] CREATININE 0.78 0.5-1.5 eGFR(CKD-EPI 2020) >90.0 >60 Dec 10, 2021 08:05 AM [place] [facility] GLUCOSE Sp ecimen Type: PLASMA Comment: [place] [id number] on Dec 10, 2021@08:31 Tests performed on Pham [employer] (405) SN:[id number] Ordering Provid er: ISATU TODD Report Released Date/Time: Dec 10, 2021 07:22 AM Reporting Lab: [place] [facility] [address] [place] [facility] [place] [address] Performing Lab: [place] [facility] [address] [place] [facility] [place] [address] GLUCOSE 144 H 65-100 Dec 10, 2021 08:05 AM [place] [facility] ELECTROLYTES Sp ecimen Type: PLASMA Comment: [place] [id number] on Dec 10, 2021@08:31 Tests performed on AtlanteTrek (405) SN:[id number] Ordering Provid er: ISATU TODD Report Released Date/Time: Dec 10, 2021 07:22 AM Reporting Lab: [facility] [address] [facility] [address] Performing Lab: [facility] [address] [facility] [address] SODIUM 139 135-145 POTASSIUM 3.7 3.5-5.0 CHLORIDE 107 100-110 CARBON DIOXIDE 24 20-30 ANION GAP 8 4-16 Dec 10, 2021 08:05 AM [facility] CBC PROFILE Sp ecimen Type: BLOOD No comment enter ed. Ordering Provid er: ISATU TODD Report Released Date/Time: Dec 10, 2021 07:22 AM Reporting Lab: [facility] [address] [facility] [address] Performing Lab: [facility] [address] [facility] [address] WBC 7.0 4.5-11.0 RBC 4.54 4.23-5.66 HGB [...] 0.00 0-0 Dec 09, 2021 06:46 AM [facility] MAGNESIUM Sp ecimen Type: PLASMA Comment: Tests performed on AtlanteTrek (405) SN:[id number] Ordering Provid er: ISATU TODD Report Released Date/Time: Dec 08, 2021 10:23 AM Reporting Lab: [facility] [address] [facility] [address] Performing Lab: [place] [facility] [address] [facility] [address] MAGNESIUM 1.6 1.6-2.6 Dec 09, 2021 [place] P4 GLU,BUN,CREAT,LYTES,CA Speci men Type: PLASMA 06:46 AM [facility] Comment: Tests performed on AtlanteTrek (405) SN:[id number] Ordering Provid er: ISATU TODD Report Released Date/Time: Dec 08, 2021 05:00 PM Reporting Lab: [place] [facility] [address] [facility] [address] Performing Lab: [facility] [address] [facility] [address] UREA NITROGEN 6 L 7-25 SODIUM 134 L 135-145 POTASSIUM 3.7 3.5-5.0 CHLORIDE 103 100-110 CARBON DIOXIDE 23 20-30 ANION GAP 8 4-16 GLUCOSE 112 H 65-100 CREATININE 0.70 0.5-1.5 CALCIUM 8.1 L 8.5-10.5 eGFR(CKD-EPI 2020) >90.0 >60 Dec 09, 2021 06:46 AM [place] [facility] CBC PROFILE Sp ecimen Type: BLOOD No comment enter ed. Ordering Provid er: ISATU TODD Report Released Date/Time: Dec 08, 2021 05:00 PM Reporting Lab: [place] [facility] [address] [facility] [address] Performing Lab: [place] [facility] [address] [facility] [address] WBC 7.1 4.5-11.0 RBC 4.40 4.23-5.66 HGB [...] 0.00 0-0 Dec 08, 2021 06:39 AM [facility] MAGNESIUM Sp ecimen Type: PLASMA Comment: Testin g Performed on AtlanteTrek (405) SN:[id number] Ordering Provid er: ISATU TODD Report Released Date/Time: Dec 07, 2021 10:32 AM Reporting Lab: [facility] [address] [facility] [address] Performing Lab: [facility] [address] [facility] [address] MAGNESIUM 1.5 L 1.6-2.6 Dec 08, 2021 [place] P4 GLU,BUN,CREAT,LYTES,CA Speci men Type: PLASMA 06:39 AM [facility] Comment: Testin g Performed on AtlanteTrek (405) SN:[id number] Ordering Provid er: ISATU TODD Report Released Date/Time: Dec 07, 2021 10:32 AM Reporting Lab: [facility] [address] [facility] [address] Performing Lab: [facility] [address] [facility] [address] UREA NITROGEN 6 L 7-25 SODIUM 136 [...] Reporting Lab: [facility] [address] [facility] [address] Performing Lab: [facility] [address] [facility] [address] WBC 8.4 4.5-11.0 RBC 4.75 4.23-5.66 HGB [...] NRBC 0.00 0-0 Dec 07, 2021 [facility] P4 GLU,BUN,CREAT,LYTES,CA Speci men Type: PLASMA 06:42 AM [facility] Comment: Tests performed on AtlanteTrek (405 SN:[id number] Ordering Provid er: PORFIRIO WALTERS Report Released Date/Time: Dec 06, 2021 06:57 PM Reporting Lab: [facility] [address] [facility] [address] Performing Lab: [facility] [address] [facility] [address] UREA NITROGEN 9 7-25 SODIUM 135 135-145 POTASSIUM 3.5 3.5-5.0 CHLORIDE 103 100-110 CARBON DIOXIDE 22 20-30 ANION GAP 10 4-16 GLUCOSE 92 65-100 CREATININE 0.73 0.5-1.5 CALCIUM 8.0 L 8.5-10.5 eGFR(CKD-EPI 2020) >90.0 >60 Dec 07, 2021 06:42 [facility] Specimen Typ e: PLASMA AM [facility] Comment: Tests performed on AtlanteTrek (405) SN:[id number] Ordering Provid er: PORFIRIO WALTERS Report Released Date/Time: Dec 06, 2021 06:57 PM Reporting Lab: [facility] [address] [facility] [address] Performing Lab: [facility] [address] [facility] [address] PROTEIN, TOTAL 5.7 L 6.0-8.5 ALBUMIN 2.4 L 3.2-5.0 BILIRUBIN, TOTAL 0.4 0.2-1.2 ALKALINE PHOSPHATASE 109 40-150 ALT(SGPT) 10 7-52 AST(SGOT) 15 5-34 FIB-4 SCORE 1.92 <2.67 Dec 07, 2021 06:42 AM [place] [facility] CBC PROFILE Specimen Type: BLOOD [facility] No comment enter ed. Ordering Provid er: PORFIRIO WALTERS Report Released Date/Time: Dec 06, 2021 06:57 PM Reporting Lab: [facility] [address] [facility] [address] Performing Lab: [facility] [address] [facility] [address] WBC 5.7 4.5-11.0 RBC 4.15 L 4.23-5.66 [...] [facility] %) AUTOMATED Comment: Tests performed on AtlanteTrek (405) SN:[id number] Ordering Provid er: ISATU TODD Report Released Date/Time: Dec 07, 2021 10:28 AM Reporting Lab: [place] [facility] [address] [facility] [address] Performing Lab: [place] [facility] [address] [facility] [address] RETICULOCYTES (%) AUTOMATED 1.23 0. 6-2.0 RETICULOCYTES (ABS) AUTOMATED 0.052 0.030-0.090 Dec 06, 2021 09:45 [place] MRSA SURVL NARES Specimen Ty pe: NARES PM [facility] DNA No comment enter ed. Ordering Provid er: ALVARO VARGHESE Report Released Date/Time: Dec 07, 2021 02:20 AM Reporting Lab: [place] [facility] [address] [facility] [address] Performing Lab: [place] [facility] [address] [facility] [address] MRSA SURVL NARES DNA NEGATIVE NEGATIVE Dec 06, 2021 06:00 [place] URINALYSIS W/REFLEX TO Speci men Type: URINE PM [facility] CULTURE No comment enter ed. Ordering Provid er: JELANI SÁNCHEZ Report Released Date/Time: Dec 06, 2021 11:57 AM Reporting Lab: [facility] [address] [facility] [address] Performing Lab: [facility] [address] [facility] [address] URINE COLOR Arlin YELLOW SPECIFIC GRAVITY 1.029 [...] 21, [place] Comment: https://www.cdc.gov/coronavirus/2019-ncov/cases-updates/variant- surveillance/variant-info.html The Cor[employer]ense SARS CoV 2 [employer] Assay-GX is a next-generation sequencing (NGS) assa 2021 [place] [facility] y that determine s the complete genome sequence of the SARS-CoV-2 virus. The assay contains variant-tolerant primers to broaden and improve the coverage for variant detection and increase the sensitivity 12:00 [facility] PNL() of the panel to enable detection from lower viral titer samples. The assay is run on the Casabu Sequencer, which performs automated library preparation, sequencing, analysis, and reporting. PM The sequence an alysis includes determination of viral phylogenetic lineage by comparison to the reference strain Wuhan-Hu-1, GenBank: [id number]. Sequence determination may not be possible owing [...] and its performance characteristics determined by the [facility] Molecular Diagnostics Laboratory, which is certified under the Clinical Laboratory Improveme nt Amendments (C MARCO) as qualified to perform high complexity clinical laboratory testing. This test is validated for clinical use at [facility] and should not be regarded as [...] [facility] [address] [facility] [address] Performing Lab: [facility] [address] [facility] [address] SARS-CoV-2 CLADE() 22C (OMICRON) SARS-CoV-2 LINEAGE() BA.2.12.1 Dec 06, 2021 12:00 [facility] COVID-19 AG SCREEN Specimen Type: NASAL CAVITY PM [facility] PANEL BINAX(405) Comment: Testi ng Performed By: Mike Briscoe Ordering Provid er: JELANI SÁNCHEZ Report Released Date/Time: Dec 08, 2021 08:23 AM Reporting Lab: [facility] [address] [facility] [address] Performing Lab: [facility] [address] [facility] [address] COVID-19 AG SCRN(wrj BINAX) POSITIVE HH NE G Dec 06, 2021 12:00 PM [facility] LIVER PROFILE Sp ecimen Type: PLASMA Comment: Testin g Performed on Pham [employer] (405) SN:[id number] Ordering Provid er: JELANI SÁNCHEZ Report Released Date/Time: Dec 06, 2021 11:57 AM Reporting Lab: [facility] [address] [facility] [address] Performing Lab: [facility] [address] [facility] [address] PROTEIN, TOTAL 6.6 6.0-8.5 ALBUMIN 2.8 L 3.2-5.0 BILIRUBIN, TOTAL 0.6 0.2-1.2 ALKALINE PHOSPHATASE 134 40-150 ALT(SGPT) 13 7-52 AST(SGOT) 18 5-34 FIB-4 SCORE 1.94 <2.67 Dec 06, 2021 12:00 PM [facility] TROPONIN II Sp ecimen Type: PLASMA Comment: Tests performed on [employer] (405) SN:[id number] Ordering Provid er: JELANI SÁNCHEZ Report Released Date/Time: Dec 06, 2021 11:57 AM Reporting [facility]: [facility] [address] [facility] [address] Performing Lab[facility] [address] [facility] [address] TROPONIN II 0.03 0.00-0.29 Dec 06, 2021 [facility]U,BUN,CREAT,LYTES,CA Speci men Type: PLASMA 12:00 PM [facility] Comment: Testin g Performed on [employer] (405) SN:[id number] Ordering Provid er: JELANI SÁNCHEZ Report Released Date/Time: Dec 06, 2021 11:57 AM Reporting Lab: [facility] [address] [facility] [address] Performing Lab: [facility] [address] [facility] [address] UREA NITROGEN 13 7-25 SODIUM 138 135-145 POTASSIUM 3.8 3.5-5.0 CHLORIDE 103 100-110 CARBON DIOXIDE 23 20-30 ANION GAP 12 4-16 GLUCOSE 105 H 65-100 CREATININE 0.90 0.5-1.5 CALCIUM 8.7 8.5-10.5 eGFR(CKD-EPI 2020) >90.0 >60 Dec 06, 2021 12:00 PM [facility] BNP(P) Sp ecimen Type: PLASMA Comment: Tests performed on [employer] (405) SN:[id number] Ordering Provid er: JELANI SÁNCHEZ Report Released Date/Time: Dec 06, 2021 11:57 AM Reporting Lab: [facility] [address] [facility] [address] Performing Lab: [facility] [address] [facility] [address] BNP(P) 224.8 H 10-100 Dec 06, 2021 [facility] COVID-[facility]+FLU/RSV DIAGNOSTIC Spe cimen Type: NASOPHARYNX 12:00 PM [facility] PANEL(405) Comment: Tests performed on [employer] (405) Critical results called to and read back by: ALESHIA WILKINSON RN 12/06/21 @ 1312 Ordering Provid er: JELANI SÁNCHEZ Report Released Date/Time: Dec 06, 2021 11:57 AM Reporting Lab: [facility] [address] [facility] [address] Performing Lab: [facility] [address] [facility] [address] FLU A(PCR) NEGATIVE NEGATIVE FLU B(PCR) NEGATIVE NEGATIVE RSV(PCR) NEGATIVE NEGATIVE COVID-19(RHX-ncc-SYLYRPADM) DETECTED HH NO T DETECTED Dec 06, 2021 12:00 PM [facility] CBC PROFILE Sp ecimen Type: BLOOD No comment enter ed. Ordering Provid er: JELANI SÁNCHEZ Report Released Date/Time: Dec 06, 2021 11:57 AM Reporting Lab: [facility] [address] [facility] [address] Performing Lab: [facility] [address] [facility] [address] WBC 7.2 4.5-11.0 RBC 4.86 4.23-5.66 HGB [...] dy Source Pressure Rate Mass Index Dec 08, 97.9 F 100 119/74 16 /min 95 % 0 [place] 2021 11:30 /min mm[Hg] R[place] PM [facility] Dec 08, 99.2 F 94 126/76 18 /min 98 % 0 [place] 2021 02:15 /min mm[Hg] RIVER PM [facility] Dec 08, 0 [place] 2021 10:37 [place]IVER AM [facility] Dec 08, 97.5 F 106 122/76 16 /min 97 % 0 [place] 2021 05:55 /min mm[Hg] RIVER AM [facility] Dec 08 0 [place] 2021 03:52 RIVER AM [facility] Social History: Smoking Status (Most current) and Tobacco Use (All prior to encounter date) This section includes the most current, and the historical, smoking and tobacco-related health factors from the [place] facility where the Encounter took place.Current Smoking Status This section includes the most current smoking, or tobacco-related health factor, from the [place] facility where the Encounter took place. Date/Time Current Smoking Status Comment Facility Dec 06, 2021 11:40 AM QUIT TOBACCO USE > 7 YEARS AGO [facility] Tobacco Use History This section includes a history of the smoking, or tobacco- related health factors, that were collected on or before the date of the Encounter. The data comes from the [place] facility where the Encounter took place. Date/Time Smoking Status/Tobacco Use Comment [place] [facility] Apr 01, 2020 01:16 PM QUIT [...] AM QUIT TOBACCO USE 1-7 YEARS AGO [facility] May 25, 2016 11:53 PM QUIT TOBACCO USE IN PAST YEAR [facility] May 23, 2016 06:57 PM QUIT TOBACCO USE > 7 YEARS AGO [facility] DOYLE [facility] May 19, 2016 03:55 PM QUIT TOBACCO USE IN PAST YEAR [facility]Y DOYLE [facility] May 19, 2016 10:29 AM QUIT TOBACCO USE 1-7 YEARS AGO [facility] DOYLE [facility] May 01, 2016 07:26 PM QUIT TOBACCO USE IN PAST YEAR [facility]AREY DOYLE [facility] May 01, 2016 03:11 PM QUIT TOBACCO USE IN PAST YEAR [facility]Y DOYLE [facility] May 01, 2016 11:19 AM QUIT TOBACCO USE IN PAST YEAR [facility]AREY DOYLE [facility] Mar 16, 2016 12:50 PM V1-PT DECLINES REF TO TOBACCO CAREY DOYLE [facility] CESS PRGM Mar 16, 2016 12:50 PM V1-PT THINKING ABOUT QUIT CAREY DOYLE [facility] TOBACCO USE Aug 12, 2015 08:48 AM CURRENT SMOKER CAREY Yates [facility] Radiology Reports: +/- 30 days of [...] the Encounter. The data comes from all [place] treatment facilities. Date/Time Radiology Report Provider Source Dec 13, 2021 12:57 PM MRI ABDOMEN W/WO CONTRAST: MARYELLEN LONG Gorge MEEKLUCAS N [id number] -1950 [facility] Exm Date: DEC 13, 2021@12:57 Req Phys: ISATU TODD Loc: OP Unknown/0 12-15-2021@13:20 Img Loc: MRI IMAGING (OOS) Service: [facility]GENERAL MEDICINE (Case [id number] COMPLETE) MRI ABDOMEN W/WO CONTRAST (M RI Detailed) CPT:45392 Reason for Study: further characterization of a [...] new lyphadenopathy REQUESTING MD: Isatu Todd PAGER: [phone] PHONE: [phone] Weight: 232.2 lb [105.32 kg] (12/12/2021 05:00) [...] patient will need to arrange for a hazardous materials driver to take him/her home after the [...] 15, 2021 Date Verified: DEC 15, 2021 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 E-Sig:/ES/MARYELLEN LONG Report: MRI ABDOMEN W/WO CONTRAST [...] MALIGNANCY Primary Interpreting Staff: Staff AMELIA THOMAS (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) / Dec 10, 2021 09:[address] ABDOMEN & PELVIS: RADIOLOGY,OUTSIDE [facility] LINDSAY LUCAS MEEK N [id number] -1950 [facility] Ex Date: DEC 10, 2021@09:30 Req Phys: ISATU TODD E Josseline Loc: 1S MED/12-10@10:57 Img Loc: CT SCAN (OOS) Service: [facility] MEDICINE (Case [id number] COMPLETE) CT ABD & PELVIS WITHOUT CONT RAST (CT Detailed) CPT:55533 Reason for Study: 71 yo male with [...] INDEX - NO HEIGHTS FOUND Pager number: [phone] STAT orders MUST be call ed to RADIOLOGY [phone] to speak to the appropriate pbx technician. Report Status: Verified Date Reported: DEC 10, 2021 Date Verified: DEC 10, 2021 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 E-Sig: Report: EXAM: CT abdomen and pelvis [...] ph nodes. READING PHYSICIAN: Ramone Munoz D.O. -[phone] 12/10/2021 10:55 EDT [facility] [phone] (For Medical Practitioner Use Only ) [address] [facility] [address] [place] [address] Attention Patients / Veterans: If you have ques tions or concerns about these test results, please contact your o rdering provider or primary care team. Primary Diagnostic Code: SIGNIFICANT ABNORMALIT Y, ATTN NEEDED Primary Interpreting Staff: RADIOLOGY,OUTSIDE SERVICE, Staff Physician / Dec 09, 2021 07:34 AM BASW (MODIFIED): [facility]ENEY [facility] LUCAS MEEK N [id number] -1950 M [facility] Exm Date: DEC 09, 2021@07:34 Req Phys: ISATU TODD Loc: 1S MED/12-09@11:26 Img Loc: XRAY (OOS) Service: [facility] MEDICINE (Case [id number] COMPLETE) BASW (MODIFIED) (EUNICE stephenson) CPT:81436 Contrast Media : Barium Reason for Study: dysphagia ?esophageal spasm Clinical History: Report Status: Verified Date Reported: DEC 09, 2021 Date Verified: DEC 09, 2021 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 E-Sig:/ES/JESSIE CHENEY Report: BASW (MODIFIED) , 12/09/2021 [...] REQUIRED Primary Interpreting Staff: JESSIE CHENEY, RADIOLOGIST (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) /TLC Dec 06, 2021 12:[address] CHEST (INCLUDES ADRENALS): JESSIE CHENEY [facility] DOYLE T LUCAS MEEK N [id number] -1950 M [facility] Exm Date: DEC 06, 2021@12:59 Req Phys: JELANI SÁNCHEZ Loc: [facility] ED DAYS M 1RD (Req'g Loc) Img Loc: CT SCAN (OOS) Service: Unknown (Case [id number] COMPLETE) CT THORAX W/O CONT (CT Detai led) CPT:19828 Reason for Study: Opacification right chest Clinical History: No contrast allergy BUN: 13 (12/06/21 12:00) CREATI: 0.90 (12/06/21 12:00) eGFR 05/16/21 09:43 52 L Weight: 232.6 lb [105.51 kg] (12/06/2021 11:40) BODY MASS INDEX - NO HEIGHTS FOUND Pager number: [phone] STAT orders MUST be called t o RADIOLOGY [phone] to speak to the appropriate pbx technician. Indications - Other: Opacification right chest, covid positive, lung cancer histo Report Status: Verified Date Reported: DEC 06, 2021 Date Verified: DEC 06, 2021 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 E-Sig:/ES/JESSIE CHENEY Report: CT THORAX W/O CONT [...] REQUIRED Primary Interpreting Staff: JESSIE CHENEY, RADIOLOGIST (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) Primary Interpreting Resident: PRINCE CHAMPION, Resident /BR Dec 06, 2021 11:58 AM CHEST SINGLE VIEW: JESSIE CHENEYLUCAS N [id number] -1950 M [facility] Exm Date: DEC 06, 2021@11:58 Req Phys: JELANI SÁNCHEZ Loc: [facility] ED DAYS M 1RD (Req'g Loc) Img Loc: XRAY (OOS) Service: Unknown (Case [id number] COMPLETE) CHEST SINGLE VIEW (RAD Detai led) CPT:03069 Proc Modifiers : PORTABLE EXAM Reason for Study: SOB, home covid test positive Clinical History: Report Status: Verified Date Reported: DEC 06, 2021 Date Verified: DEC 06, 2021 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 E-Sig:/ES/JESSIE CHENEY Report: Exam type: Chest x-ray [...] the Encounter. The data comes from all [place] treatment facilities. Date/Time Pathology Report Provider Source Jan 03, 2022 10:28 AM LR SURGICAL PATHOLOGY REPORT: STEFANY MILLER LOCAL TITLE: LR SURGICAL PATHOLOGY REPORT [facility] STANDARD TITLE: PATHOLOGY REPORT DATE OF NOTE: JAN 03, 2022@10:28:01 ENTRY DATE: JAN 03, 2022@10:28:01 AUTHOR: NIURKA MILLER EXP COSIGNER: URGENCY: STATUS: COMPLETED $APHDR Reporting Lab: [facility] [CLIA# [id number]] [address] [place] [address] - - - - - - [...] automatically d ocumented from SURGERY package case #[id number] Field (#32) PRINCIPAL PRE-OP DIAGNOSIS, (#.72) OTHER [...] automatically d ocumented from SURGERY package case #[id number] Field (#34) PRINCIPAL POST-OP DIAG, (#.74) OTHER [...] - - GROSS DESCRIPTION: Name Label: Lucas Meke Paperwork: Lucas Meek Cassette: [id number];..;KALYANI;.;405;[id number] Specimen is labeled: ES bx Received in formalin are several pieces of pale boyd and brown tissue, 1.2 x 0.7 cm in aggregate. Submitted entirely in 1 cassette [id number];..;KALYANI;.;405;[id number] SAW 12/15/2021 Microscopic exam: *+* MODIFIED REPORT *+* (Last modified: JAN 03, 2022@09:30:20 typed by NIURKA WADDELL) DIAGNOSIS: A. 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 Kendell long. TIARA Coombs was notified on 12/21/21. Modified on 01/03/22 to include report from [facility] stating that tumor is NEGATIVE for her2/ matheus amplification. The attending pathologist who signature mansoor ears on this report has reviewed all diagnostic slides and has edited t he gross and/or microscopic portion of this report in rendering the final pathologic diagnosis. [facility] [address] [facility] [place] [address] CPT: 37137 /emely/ NIURKA Yeung MD Signed Jan 03, 2022@10:28 Performing Laboratory: Surgical Pathology Report Performed By: [facility] [CLIA# [id number]] [address] [place] [address] $FTR - - - - - [...] - - LUCAS MEEK STANDARD FORM 515 ID:[id number] SEX:M :1950 AGE: 71 LOC: [facility] END PCP: Isatu Todd /emely/ NIURKA Yeung MD Signed: 01/03/2022 10:28 Dec 21, 2021 11:46 AM LR SURGICAL PATHOLOGY REPORT: STEFANY MILLER [facility] LOCAL TITLE: LR SURGICAL PATHOLOGY REPORT [facility] STANDARD TITLE: PATHOLOGY REPORT DATE OF NOTE: DEC 21, 2021@11:46:59 ENTRY DATE: DEC 21, 2021@11:46:59 AUTHOR: NIURKA MILLER EXP COSIGNER: URGENCY: STATUS: COMPLETED $APHDR Reporting Lab: [facility] [CLIA# [id number]] [address] [place] [address] - - - - - - [...] - - - $TEXT Submitted by: ISATU E TODD Date obtained: Ju 2021 14:59 - - - - - [...] automatically d ocumented from SURGERY package case #[id number] Field (#32) PRINCIPAL PRE-OP DIAGNOSIS, (#.72) OTHER [...] automatically d ocumented from SURGERY package case #[id number] Field (#34) PRINCIPAL POST-OP DIAG, (#.74) OTHER [...] - GROSS DESCRIPTION: Name Label: Lucas Meek Lei Paperwork: Lucas Meek Lei Cassette: [id number];..;KALYANI;.;106;[id number] Specimen is labeled: ES bx Received in formalin are several pieces of pale boyd and brown tissue, 1.2 x 0.7 cm in aggregate. Submitted entirely in 1 cassette [id number];..;KALYANI;.;051;[id number] SAW 12/15/2021 Microscopic exam: DIAGNOSIS: A. 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 Kendell long. TIARA Coombs was notified on 12/21/21. The attending pathologist who signature mansoor ears on this report has reviewed all diagnostic slides and has edited t he gross and/or microscopic portion of this report in rendering the final pathologic diagnosis. [address] [address] CPT: 45745 /emely/ NIURKA Yeung MD Signed Dec 21, 2021@11:46 Performing Laboratory: Surgical Pathology Report Performed By: [facility] [CLIA# [id number]] [address] [place] [address] $FTR - - - - - [...] - - LUCAS MEEK STANDARD FORM 515 ID:[id number] SEX:M :1950 AGE: 71 LOC: [facility] END PCP: Isatu Todd /charmaine Yeung MD Signed: 12/21/2021 11:46 Dec 06, 2021 03:30 PM LR MICROBIOLOGY REPORT: [facility] Reporting Lab: [facility] [CLIA# [id number]] [address] [place] [address] Accession [UID]: [id number] [[id number]] Receiv ed: Dec 06, 2021@16:14 Collection sample: BLOOD CUL T BOTTLE(NIRMAL/AERO)Collection date: Dec 06, 2021 15:30 Site/Specimen: BLOOD Provider: JELANI SÁNCHEZ Comment on specimen: LAC Test(s) ordered: BLOOD CULTURE ANAEROBI C....... completed: Dec 12, 2021 06:18 * BACTERIOLOGY FINAL REPORT => Dec 12, 2021 06:1 8 TECH CODE: [id number] Bacteriology Remark(s): NO GROWTH IN 5 DAYS =--=--=--=--=--=--=--=--=--=--=--=--=--= --=--=--=--=--=--=--=--=--=--=--=--=-- Performing Laboratory: Bacteriology Report Performed By: [facility] [CLIA# [id number]] [address] [place] [address] Dec 06, 2021 03:30 PM LR MICROBIOLOGY REPORT: [facility] Reporting Lab: [facility] [CLIA# [id number]] [address] [place] [address] Accession [UID]: [id number] [[id number]] Receiv ed: Dec 06, 2021@16:14 Collection sample: BLOOD CUL T BOTTLE(NIRMAL/AERO)Collection date: Dec 06, 2021 15:30 Site/Specimen: BLOOD Provider: JELANI SÁNCHEZ Comment on specimen: LAC Test(s) ordered: BLOOD CULTURE AEROBIC. ........ completed: Dec 12, 2021 06:17 * BACTERIOLOGY FINAL REPORT => Dec 12, 2021 06:1 7 TECH CODE: [id number] Bacteriology Remark(s): NO GROWTH IN 5 DAYS =--=--=--=--=--=--=--=--=--=--=--=--=--= --=--=--=--=--=--=--=--=--=--=--=--=-- Performing Laboratory: Bacteriology Report Performed By: [facility] [CLIA# [id number]] [address] [place] [address] Encounter Notes: All associated encounter notes This section contains the clinical notes associated to the Encounter. Date/Time Encounter Note(s) Provider Source Dec 08, 2021 08:24 PHARMACY INPATIENT NOTE: MIKAEL GUZMAN LOCAL TITLE: PHARMACY INPATIENT ANTIBIOTIC [facility] STANDARD TITLE: PHARMACY INPATIENT NOTE DATE OF NOTE: DEC 08, 2021@08:24 ENTRY DATE: DEC 08, 2021@08:25:03 AUTHOR: MIKAEL GUZMAN EXP COSIGNER: URGENCY: STATUS: COMPLETED PHARMACY INPATIENT ANTIBIOTIC MONITORING Renal/hepatic monitoring for antimicrobials precribed in hospitalized patients. Add'l work-up and impressions will be provided a t a later time as needed. In short, Mr. Meek is a 71 yo M with concerns for COVID-19 and bacterial pneumonia an d started on antibiotics. Objective: Antibiotic allergies: N/A Active Inpatient Medications (excluding Supplies ): Active [...] 13) SERTRALINE TAB 150MG PO QD ACTIVE Height: 72 in [182.9 cm] (03/05/2019 11:48) Weight: 233.7 lb [106.00 kg] (12/06/2021 21:43) SCr: CREATI: 0.73 (12/07/21 06:00) Est CrCl (AdBW=88.96kg): 86ml/min (SCr rounded to 1 in >65yo) LFTs: Collection DT Specimen Test Name Result Units Re f Range 12/07/2021 06:00 PLASMA!! ALT(SGPT) 10 U/L 7 - 5 2 12/07/2021 06:00 PLASMA!! AST(SGOT) 15 U/L 5 - 3 4 IMPRESSION/RECOMMENDATIONS In short, Mr. Meek is a 71 yo M with concerning for COVID-19 and bacterial pneumonia and started on antibiotics. [ ] Dose adjustment/optimization [x] No changes; monitor Consider PCT-directed duration of therap y. In a prospective, randomized, open- label, noninferiority trial of 96 patien ts PCT-directed antibiotic duration of therapy showed relapse of as piration pneumonia and was not different from control group, but was able to shorten average duration significantly by ~3 days (Krysten T et al. Respir Investig. 2014 Aug;52 (2):107-13). Would also consider IV to PO for ceftriaxone -> cefdinir (3rd gen ceph not impacted by PPI reduction in bioavailability as much as cefpodoxime and able to be crushed for better PO administration). Add'l work-up and impressions will be provided a t a later time as needed. If you have any additional questions, please contact [phone] for ID Pharmacy. Thank you! /emely/ MIKAEL GUZMAN CLINICAL PHARMACIST Signed: 12/08/2021 08:57
--- OUTSIDE RECORDS SUMMARY | 2022-01-19 08:23 | XMS_ITS ---
DAILY HOSPITALIZATION DATA [facility] Encounter Summary Created on:December 08, 2021 Patient:LUCAS MEEK Sex:Male :1950 Author Organization [facility] Address [address] [place] [id number] Support Name Relationship Address Phone YUSRA MEEK Unavailable [address] [place] [address] YUSRA MEEK Unavailable [address] [place] [address] CLAY MOSLEY Unavailable Unavailable SJ SANTACRUZ Unavailable [...] MEDICARE MEDICARE PART Jun 18, PART B [id number] DO KALYANI PATIENT (WNR) (M) B 2016 13A 1 UGLAS MEDICARE MEDICARE PART Jun 18, PART A [id number] DO KALYANI PATIENT (WNR) (M) A 2016 13A 1 U[place]AS MEDICARE MEDICARE PART Jun 18, PART A [id number] KALYANIDO PATIENT (WNR) (M) A 2017 VH81 2 UGLAS MEDICARE MEDICARE PART Jun 18, PART B [id number] DO KALYANI PATIENT (WNR) (M) B 2017 VH81 2 LAS UNITED MEDICARE MCR(Jun 18 [id number] Luz MEEK PATIENT HEALTHCARE ADVANTAGE NR) 2021 37 0 [facility] (WNR) Selected Encounter This section includes the information on record at [place] for the Encounter. Date/Time Encounter Type Encounter Description Reason Provider Source Dec 08, 2021 10:36 Inpatient Visit DAILY HOSPITALIZATION DATA AM [facility] Encounter Template Text not used by [place] [...] AM AMBUL[place]ORY - NONE [place] [facility] Jan 06, 2022 02:00 PM [place] [facility] Jan 10, 2022 11:30 AM AMBULATORY - MEDICINE [facility] Jan 24, 2022 08:00 [place] [facility] Feb 21, 2022 10:00 AM AMBULATORY - SURGERY [place] [facility] Mar 21, 2022 10:30 AM AMBULATORY - [...] The data comes from all [place] treatment [facility]. Test Date/Time Test Type Test Details Facility Name October 31, 2021 07:37 AM Consult Order COMM[facility]ITY [facility]-EGD [facility] Cons Fourth Grade Teacher's Choice November 15, 2021 10:37 AM Consult Order [facility] CARE-PODIATRY Cons Fourth Grade Teacher's Choice Dec 06, 2021 12:52 PM [place]acy [place] In[place] Order [facility] Dec 06, 2021 03:24 PM Pharmacy - [place] Order [facility] Dec 06, 2021 03:40 PM [place]acy - [place] Order [facility] Dec 15, 2021 08:41 AM Consult Order SPEECH PATHOLOGY [place] OUTPAT[place] Cons [facility] Fourth Grade Teacher's Choice Jan 15, 2022 10:08 PM Consult Order [facility] CARE-PALLIATIVE CARE Cons Fourth Grade Teacher's Choice Lab Results: +/- 30 days of [...] Reference Range Comment Dec 15, 2021 [place] P4 GLU,BUN,CREAT,LYTES,CA Speci men Type: PLASMA 06:43 AM [facility] Comment: Tests performed on Viewex (405) SN:[id number] Ordering Provid er: ISATU TODD Report Released Date/Time: Dec 11, 2021 07:42 AM Reporting Lab: [facility] T [facility] [address] [facility] [address] Performing Lab: [facility] [address] [facility] [address] UREA NITROGEN 9 7-25 SODIUM 137 135-145 POTASSIUM 3.8 3.5-5.0 CHLORIDE 105 100-110 CARBON DIOXIDE 26 20-30 ANION GAP 6 4-16 GLUCOSE 102 H 65-100 CREATININE 0.64 0.5-1.5 CALCIUM 8.1 L 8.5-10.5 eGFR(CKD-EPI 2020) >90.0 >60 Dec 15, 2021 06:43 AM [facility] CBC PROFILE Sp ecimen Type: BLOOD No comment enter ed. Ordering Provid er: ISATU TODD Report Released Date/Time: Dec 10, 2021 07:22 AM Reporting Lab: [facility] T [facility] [address] [facility] [address] Performing Lab: [facility] [address] [facility] [address] WBC 5.7 4.5-11.0 RBC 4.22 L 4.23-5.66 [...] ABSOLUTE NRBC 0.00 0-0 Dec 14, 2021 [facility] CYTOGENETIC Specimen Type: ESOPHAGUS 02:59 PM VAOC FISH([facility]) Comment: ~For T est: CYTOGENETIC FISH([facility]) ~FISH HER 2 NUE, FFPE See full report in DirectMoney Image display viewer/tab#LAB-Reference Ordering Provid er: NIURKA MILLER Report Released Date/Time: Dec 21, 2021 12:11 PM Reporting Lab: [facility] [address] [facility] [address] Performing Lab: [facility] CYTOGENETIC FISH([facility]) comment Dec 14, 2021 [facility] P4 GLU,BUN,CREAT,LYTES,CA Speci men Type: PLASMA 06:27 AM [facility] Comment: Tests performed on Viewex (405) SN:[id number] Ordering Provid er: ISATU TODD Report Released Date/Time: Dec 11, 2021 07:42 AM Reporting Lab: [facility] [address] [facility] [address] Performing Lab: [facility] [address] [facility] [address] UREA NITROGEN 10 7-25 SODIUM 137 135-145 [...] 2021 07:22 AM Reporting Lab: [facility] [address] [facility] [address] Performing Lab: [facility] [address] [facility] [address] WBC 6.0 4.5-11.0 RBC 4.29 4.23-5.66 HGB [...] ABSOLUTE NRBC 0.00 0-0 Dec 13, 2021 [facility] P4 GLU,BUN,CREAT,LYTES,CA Speci men Type: PLASMA 06:34 AM [facility] Comment: Tests performed on Viewex (405) SN:[id number] Ordering Provid er: ISATU TODD Report Released Date/Time: Dec 11, 2021 07:42 AM Reporting Lab: [facility] [address] [facility] [address] Performing Lab: [facility] [address] [facility] [address] UREA NITROGEN 12 7-25 SODIUM 136 135-145 [...] 2021 07:22 AM Reporting Lab: [facility] [address] [facility] [address] Performing Lab: [facility] [address] [facility] [address] WBC 5.6 4.5-11.0 RBC 4.28 4.23-5.66 HGB [...] ABSOLUTE NRBC 0.00 0-0 Dec 12, 2021 [facility] P4 GLU,BUN,CREAT,LYTES,CA Speci men Type: PLASMA 06:21 AM [facility] Comment: Tests performed on Viewex (405) SN:[id number] Ordering Provid er: ISATU TODD Report Released Date/Time: Dec 11, 2021 07:42 AM Reporting Lab: [facility] [address] [facility] [address] Performing [facility]: [facility] [address] [facility] [address] UREA NITROGEN 11 7-25 SODIUM 139 135-145 [...] AM Reporting Lab: [facility] [address] [facility] [address] Performing Lab: [facility] [address] [facility] [address] WBC 5.5 4.5-11.0 RBC 4.37 4.23-5.66 HGB [...] 0.00 0-0 Dec 12, 2021 06:00 AM Spire[facility] MAGNESIUM Sp ecimen Type: PLASMA Comment: Testin g Performed on Viewex (405) SN:[id number] Ordering Provid er: ISATU TODD Report Released Date/Time: Dec 12, 2021 08:24 AM Reporting Lab: [place] DesallT [facility] [address] [facility] [address] Performing Lab: [place] DesallT ExecMROC [address] [facility] [address] MAGNESIUM 1.8 1.6-2.6 Dec 12, 2021 06:00 AM SpireonT ExecMROC PHOSPHORUS Sp ecimen Type: PLASMA Comment: Testin g Performed on Viewex (405) SN:[id number] Ordering Provid er: ISATU TODD Report Released Date/Time: Dec 12, 2021 08:24 AM Reporting Lab: [place] DesallT [facility] [address] [facility] [address] Performing Lab: [place] DesallT ExecMROC [address] [facility] [address] PHOSPHORUS 3.1 2.5-5.0 Dec 11, 2021 06:15 AM [place] DesallT ExecMROC ELECTROLYTES Sp ecimen Type: PLASMA Comment: Tests performed on Viewex (405) SN:[id number] Ordering Provid er: ISATU TODD Report Released Date/Time: Dec 10, 2021 07:22 AM Reporting Lab: [facility] DesallT [facility] [address] [facility] [address] Performing Lab: [place] DesallT [facility] [address] [facility] [address] SODIUM 137 135-145 POTASSIUM 4.3 3.5-5.0 CHLORIDE 108 100-110 CARBON DIOXIDE 20 20-30 ANION GAP 9 4-16 Dec 11, 2021 06:15 AM [place] [employer] [facility] CBC PROFILE Sp ecimen Type: BLOOD Comment: Result s checked Ordering Provid er: ISATU TODD Report Released Date/Time: Dec 10, 2021 07:22 AM Reporting Lab: [place] [facility] [address] [facility] [address] Performing Lab: [place] OMEGAT [facility] [address] [facility] [address] WBC 5.8 4.5-11.0 RBC 4.37 4.23-5.66 HGB [...] ecimen Type: PLASMA Comment: Tests performed on Viewex (869) SN:[id number] Results checked Ordering Provid er: ISATU TODD Report Released Date/Time: Dec 11, 2021 07:44 AM Reporting Lab: [facility] [facility] [address] [facility] [address] Performing Lab: [place] NDMROC [address] [facility] [address] PHOSPHORUS 3.0 2.5-5.0 Dec 10, 2021 08:05 AM [place] [facility] MAGNESIUM Sp ecimen Type: PLASMA Comment: [place] [id number] on Dec 10, 2021@08:31 Tests performed on Viewex (405) SN:[id number] Ordering Provid er: ISATU TODD Report Released Date/Time: Dec 10, 2021 07:22 AM Reporting Lab: [place] [facility] [address] [place] [facility] [place] [address] Performing Lab: [place] [facility] [address] [place] [facility] [place] [address] MAGNESIUM 1.7 1.6-2.6 Dec 10, 2021 08:05 AM [place] UREA NITROGEN Specimen Type: PLASMA [facility] Comment: [place] [id number] on Dec 10, 2021@08:31 Tests performed on Viewex (405) SN:[id number] Ordering Provid er: ISATU TODD Report Released Date/Time: Dec 10, 2021 07:22 AM Reporting Lab: [place] [facility] [address] [place] [facility] [place] [address] Performing Lab: [place] [facility] [address] [place] [facility] [place] [address] UREA NITROGEN 8 7-25 Dec 10, 2021 08:05 AM [place] [facility] PHOSPHORUS Sp ecimen Type: PLASMA Comment: [place] [id number] on Dec 10, 2021@08:31 Tests performed on Viewex (405) SN:[id number] Ordering Provid er: ISATU TODD Report Released Date/Time: Dec 10, 2021 07:22 AM Reporting Lab: [place] [facility] [address] [place] [facility] [place] [address] Performing Lab: [place] [facility] [address] [place] [facility] [place] [address] PHOSPHORUS 1.8 L 2.5-5.0 Dec 10, 2021 08:05 AM [place] [facility] GLUCOSE Sp ecimen Type: PLASMA Comment: [place] [id number] on Dec 10, 2021@08:31 Tests performed on Viewex (405) SN:[id number] Ordering Provid er: ISATU TODD Report Released Date/Time: Dec 10, 2021 07:22 AM Reporting Lab: [place] [facility] [address] [facility] [address] Performing Lab: [place] [facility] [address] [facility] [address] GLUCOSE 144 H 65-100 Dec 10, 2021 08:05 AM [place] [facility] CALCIUM Sp ecimen Type: PLASMA Comment: [place] [id number] on Dec 10, 2021@08:31 Tests performed on Viewex (405) SN:[id number] Ordering Provid er: ISATU TODD Report Released Date/Time: Dec 10, 2021 07:22 AM Reporting Lab: [place] [facility] [address] [facility] [address] Performing Lab: [place] [facility] [address] [facility] [address] CALCIUM 8.3 L 8.5-10.5 Dec 10, 2021 08:05 AM [place] [facility] ELECTROLYTES Sp ecimen Type: PLASMA Comment: [place] [id number] on Dec 10, 2021@08:31 Tests performed on Pham ULTRA Testing (405) SN:[id number] Ordering Provid er: ISATU TODD Report Released Date/Time: Dec 10, 2021 07:22 AM Reporting Lab: [place] [facility] [address] [facility] [address] Performing Lab: [place] [facility] [address] [facility] [address] SODIUM 139 135-145 POTASSIUM 3.7 3.5-5.0 CHLORIDE 107 100-110 CARBON DIOXIDE 24 20-30 ANION GAP 8 4-16 Dec 10, 2021 08:05 [place] CREATININE WITH eGFR Specime n Type: PLASMA AM [facility] PANEL Comment: [place] [id number] on Dec 10, 2021@08:31 Tests performed on Viewex (405) SN:[id number] Ordering Provid er: ISATU TODD Report Released Date/Time: Dec 10, 2021 07:22 AM Reporting Lab: [place] [facility] [address] [facility] [address] Performing Lab: [place] [facility] [address] [facility] [address] CREATININE 0.78 0.5-1.5 eGFR(CKD-EPI 2020) >90.0 >60 Dec 10, 2021 08:05 AM [facility] CBC PROFILE Sp ecimen Type: BLOOD No comment enter ed. Ordering Provid er: ISATU TODD Report Released Date/Time: Dec 10, 2021 07:22 AM Reporting Lab: [place] OMEGAT [facility] [address] [facility] [address] Performing Lab: [place] [facility] [address] [facility] [address] WBC 7.0 4.5-11.0 RBC 4.54 4.23-5.66 HGB [...] 0.00 0-0 Dec 09, 2021 06:46 AM [facility] MAGNESIUM Sp ecimen Type: PLASMA Comment: Tests performed on Viewex (140) SN:[id number] Ordering Provid er: ISATU TODD Report Released Date/Time: Dec 08, 2021 10:23 AM Reporting Lab: [facility] [address] [facility] [address] Performing Lab: [facility] [address] [facility] [address] MAGNESIUM 1.6 1.6-2.6 Dec 09, 2021 [facility] P4 GLU,BUN,CREAT,LYTES,CA Speci men Type: PLASMA 06:46 AM [facility] Comment: Tests performed on Viewex (405) SN:[id number] Ordering Provid er: ISATU TODD Report Released Date/Time: Dec 08, 2021 05:00 PM Reporting Lab: [facility] [address] [facility] [address] Performing Lab: [facility] [address] [facility] [address] UREA NITROGEN 6 L 7-25 SODIUM 134 L 135-145 POTASSIUM 3.7 3.5-5.0 CHLORIDE 103 100-110 CARBON DIOXIDE 23 20-30 ANION GAP 8 4-16 GLUCOSE 112 H 65-100 CREATININE 0.70 0.5-1.5 CALCIUM 8.1 L 8.5-10.5 eGFR(CKD-EPI 2020) >90.0 >60 Dec 09, 2021 06:[address] [facility] CBC PROFILE Sp ecimen Type: BLOOD No comment enter ed. Ordering Provid er: ISATU TODD Report Released Date/Time: Dec 08, 2021 05:00 PM Reporting Lab: [facility] [address] [facility] [address] Performing Lab: [facility] [address] [facility] [address] WBC 7.1 4.5-11.0 RBC 4.40 4.23-5.66 HGB [...] 0.00 0-0 Dec 08, 2021 06:39 AM [place] [employer] T [facility] MAGNESIUM Sp ecimen Type: PLASMA Comment: Testin g Performed on Viewex (405) SN:[id number] Ordering Provid er: ISATU TODD Report Released Date/Time: Dec 07, 2021 10:32 AM Reporting Lab: [facility] [address] [facility] [address] Per[facility] Lab: [facility] [address] [facility] [address] MAGNESIUM 1.5 L 1.6-2.6 Dec 08, 2021 [place] [employer] T P4 GLU,BUN,CREAT,LYTES,CA Speci men Type: PLASMA 06:39 AM [facility] Comment: Testin g Performed on Viewex (405) SN:[id number] Ordering Provid er: ISATU TODD Report Released Date/Time: Dec 07, 2021 10:32 AM Reporting Lab: [employer] T [facility] [address] [facility] [address] Per[facility]: [facility] [address] [facility] [address] UREA NITROGEN 6 L 7-25 SODIUM 136 135-145 POTASSIUM 3.3 L 3.5-5.0 CHLORIDE 104 100-110 CARBON DIOXIDE 22 20-30 ANION GAP 10 4-16 GLUCOSE 133 H 65-100 CREATININE 0.76 0.5-1.5 CALCIUM 8.4 L 8.5-10.5 eGFR(CKD-EPI 2020) >90.0 >60 Dec 08, 2021 06:39 AM [place] [employer] T [facility] CBC PROFILE Sp ecimen Type: BLOOD No comment enter ed. Ordering Provid er: ISATU TODD Report Released Date/Time: Dec 07, 2021 10:32 AM Reporting Lab: [facility] [address] [facility] [address] Performing Lab: [facility] [address] [facility] WBC 8.4 4.5-11.0 RBC 4.75 4.23-5.66 [...] NRBC 0.00 0-0 Dec 07, 2021 06:42 [facility] LIVER PROFILE Specimen Typ e: PLASMA AM [facility] Comment: Tests performed on Viewex (405 SN:[id number] Ordering Provid er: PORFIRIO WALTERS Report Released Date/Time: Dec 06, 2021 06:57 PM Reporting Lab: [facility] [address] [facility] [address] Performing Lab: [facility] [address] [facility] [address] PROTEIN, TOTAL 5.7 L 6.0-8.5 ALBUMIN 2.4 L 3.2-5.0 BILIRUBIN, TOTAL 0.4 0.2-1.2 ALKALINE PHOSPHATASE 109 40-150 ALT(SGPT) 10 7-52 AST(SGOT) 15 5-34 FIB-4 SCORE 1.92 <2.67 Dec 07, 2021 [facility] GLU,BUN,CREAT,LYTES,CA Speci men Type: PLASMA 06:42 AM [facility] Comment: Tests performed on Viewex (405) SN:[id number] Ordering Provid er: PORFIRIO WALTERS Report Released Date/Time: Dec 06, 2021 06:57 PM Reporting Lab: [place] [facility] [address] [facility] [address] Performing Lab: [place] [facility] [address] [facility] [address] UREA NITROGEN 9 7-25 SODIUM 135 135-145 POTASSIUM 3.5 3.5-5.0 CHLORIDE 103 100-110 CARBON DIOXIDE 22 20-30 ANION GAP 10 4-16 GLUCOSE 92 65-100 CREATININE 0.73 0.5-1.5 CALCIUM 8.0 L 8.5-10.5 eGFR(CKD-EPI 2020) >90.0 >60 Dec 07, 2021 06:42 AM [place] CBC PROFILE Specimen Type: BLOOD [facility] No comment enter ed. Ordering Provid er: PORFIRIO WALTERS Report Released Date/Time: Dec 06, 2021 06:57 PM Reporting Lab: [place] [facility] [address] [facility] [address] Performing Lab: [facility] [address] [facility] [address] WBC 5.7 4.5-11.0 RBC 4.15 L 4.23-5.66 [...] VAMROC %) AUTOMATED Comment: Tests performed on Viewex (405) SN:[id number] Ordering Provid er: ISATU TODD Report Released Date/Time: Dec 07, 2021 10:28 AM Reporting Lab: [place] [facility] [address] [facility] [address] Performing Lab: [place] [facility] [address] [facility] [address] RETICULOCYTES (%) AUTOMATED 1.23 0. 6-2.0 RETICULOCYTES (ABS) AUTOMATED 0.052 0.030-0.090 Dec 06, 2021 09:45 [place] MRSA SURVL NARES Specimen Ty pe: NARES PM [facility] DNA No comment enter ed. Ordering Provid er: ALVARO VARGHESE Report Released Date/Time: Dec 07, 2021 02:20 AM Reporting Lab: [place] [facility] [address] [facility] [address] Performing Lab: [place] [facility] [address] [facility] [address] MRSA SURVL NARES DNA NEGATIVE NEGATIVE Dec 06, 2021 06:00 [place] URINALYSIS W/REFLEX TO Speci men Type: URINE PM [facility] CULTURE No comment enter ed. Ordering Provid er: JELANI SÁNCHEZ Report Released Date/Time: Dec 06, 2021 11:57 AM Reporting Lab: [place] [facility] [address] [facility] [address] Performing Lab: [place] [facility] [address] [facility] [address] URINE COLOR Arlin YELLOW SPECIFIC GRAVITY 1.029 [...] 21, R[place] VARIANT Comment: https://www.cdc.gov/coronavirus/2019-ncov/cases-updates/variant- surveillance/variant-info.html The [employer] SARS CoV 2 [employer] Research Assay-GX is a next-generation sequencing (NGS) assa 2021 [facility] SEQUENCING y that determine s the complete genome sequence of the SARS-CoV-2 virus. The assay contains variant-tolerant primers to broaden and improve the coverage for variant detection and increase the sensitivity 12:00 [facility] PNL(WH) of the panel to enable detection from lower viral titer samples. The assay is run on the GlucoTec Sequencer, which performs automated library preparation, sequencing, analysis, and reporting. PM The sequence an alysis includes determination of viral phylogenetic lineage by comparison to the reference strain Wuhan-Hu-1, GenBank: [id number]. Sequence determination may not be possible owing [...] and its performance characteristics determined by the [facility], which is certified under the Clinical Laboratory Improveme nt Amendments (C MARCO) as qualified to perform high complexity clinical laboratory testing. This test is validated for clinical use at [facility] and should not be regarded as investigational [...] [facility] [address] [facility] [address] Performing Lab: [facility] [address] [facility] [address] SARS-CoV-2 CLADE() 22C (OMICRON) SARS-CoV-2 LINEAGE() BA.2.12.1 Dec 06, 2021 12:00 [facility] COVID-19 AG SCREEN Specimen Type: NASAL CAVITY PM [facility] PANEL BINAX(405) Comment: Testi ng Performed By: Mike Briscoe Ordering Provid er: JELANI SÁNCHEZ Report Released Date/Time: Dec 08, 2021 08:23 AM Reporting Lab: [facility] [address] [facility] [address] Performing Lab: [facility] [address] [facility] [address] COVID-19 AG SCRN(wrj BINAX) POSITIVE HH NE G Dec 06, 2021 12:00 PM [facility] LIVER PROFILE Sp ecimen Type: PLASMA Comment: Testin g Performed on [employer]am [employer] Win[employer] Operator (405) SN:[id number] Ordering Provid er: JELANI SÁNCHEZ Report Released Date/Time: Dec 06, 2021 11:57 AM Reporting Lab: [facility] [address] [facility] [address] Per[facility]: [facility] [address] [facility] [address] PROTEIN, TOTAL 6.6 6.0-8.5 ALBUMIN 2.8 L 3.2-5.0 BILIRUBIN, TOTAL 0.6 0.2-1.2 ALKALINE PHOSPHATASE 134 40-150 ALT(SGPT) 13 7-52 AST(SGOT) 18 5-34 FIB-4 SCORE 1.94 <2.67 Dec 06, 2021 [facility] P[facility] GLU,BUN,CREAT,LYTES,CA Speci men Type: PLASMA 12:00 PM [facility] Comment: Testin g Performed on [employer] Operator (405) [id number] Ordering Provid er: JELANI SÁNCHEZ Report Released Date/Time: Dec 06, 2021 11:57 AM Reporting Lab: [place] [facility] [address] [facility] [address] Performing Lab: [facility] [address] [facility] [address] UREA NITROGEN 13 7-25 SODIUM 138 135-145 POTASSIUM 3.8 3.5-5.0 CHLORIDE 103 100-110 CARBON DIOXIDE 23 20-30 ANION GAP 12 4-16 GLUCOSE 105 H 65-100 CREATININE 0.90 0.5-1.5 CALCIUM 8.7 8.5-10.5 eGFR(CKD-EPI 2020) >90.0 >60 Dec 06, 2021 12:00 PM [facility] BNP(P) Sp ecimen Type: PLASMA Comment: Tests performed on [employer] Operator (405) [id number] Ordering Provid er: JELANI SÁNCHEZ Report Released Date/Time: Dec 06, 2021 11:57 AM Reporting Lab: [facility] [address] [facility] [address] Performing [facility]: [facility] [address] [facility] [address] BNP(P) 224.8 H 10-100 Dec 06, 2021 12:00 PM [facility] TROPONIN II Sp ecimen Type: PLASMA Comment: Tests performed on [employer] (405) [id number] Ordering Provid er: JELANI SÁNCHEZ Report Released Date/Time: Dec 06, 2021 11:57 AM Reporting Lab: [facility] [address] [facility] [address] Performing [facility]: [facility] [address] [facility] [address] TROPONIN II 0.03 0.00-0.29 Dec 06, 2021 [facility] COVID-19+FLU/RSV DIAGNOSTIC Spe cimen Type: NASOPHARYNX 12:00 PM [facility] PANEL(405) Comment: Tests performed on [place] [employer] Gen[employer]pert (405) Critical results called to and read back by: ALESHIA WILKINSON RN 12/06/21 @ 1312 Ordering Provid er: JELANI SÁNCHEZ Report Released Date/Time: Dec 06, 2021 11:57 AM Reporting Lab: [facility] [facility] [address] [facility] [address] Performing Lab: [facility] [address] [facility] [address] FLU A(PCR) NEGATIVE NEGATIVE FLU B(PCR) NEGATIVE NEGATIVE RSV(PCR) NEGATIVE NEGATIVE COVID-19(FAV-vof-NMDITDCPZ) DETECTED HH NO T DETECTED Dec 06, 2021 12:00 PM [facility] PROFILE Sp ecimen Type: BLOOD No comment enter ed. Ordering Provid er: JELANI SÁNCHEZ Report Released Date/Time: Dec 06, 2021 11:57 AM Reporting Lab: [facility] [address] [facility] [address] Performing Lab: [facility] [address] [facility] [address] WBC 7.2 4.5-11.0 RBC 4.86 4.23-5.66 HGB [...] 100 119/74 16 /min 95 % 0 2021 11:30 /min mm[Hg] R[place] PM [facility] Dec 08, 99.2 F 94 126/76 18 /min 98 % 0 2021 02:15 /min mm[Hg] RIVER PM [facility] Dec 08, 0 2021 10:37 RIVER AM [facility] Dec 08, 97.5 F 106 122/76 16 /min 97 % 0 [place] 2021 05:55 /min mm[Hg] RIVER AM [facility] Dec 08, 0 2021 03:52 RIVER AM [facility] Social History: Smoking Status (Most current) [...] > [address] [facility] Tobacco Use History This section includes a history of the smoking, or tobacco- related health factors, that were collected on or before the date of the Encounter. The data comes from the [place] facility where the Encounter took place. Date/Time Smoking Status/Tobacco Use Comment [facility] Apr 01, 2020 01:16 PM QUIT TOBACCO USE 1-[address] [facility] Mar 24, 2020 03:00 PM QUIT [...] TOBACCO USE IN PAST YEAR CAREY DOYLE [facility] May 01, 2016 03:11 PM QUIT TOBACCO USE IN PAST YEAR CAREY DOYLE [facility] May 01, 2016 11:19 AM QUIT TOBACCO USE IN PAST YEAR [facility] DOYLE [place] [facility] Mar 16, 2016 12:50 PM V1-PT DECLINES REF TO TOBACCO CAREY DOYLE [place] [facility] CESS [facility] Mar 16, 2016 12:50 PM V1-PT THINKING ABOUT QUIT CAREY DOYLE [facility] TOBACCO USE Aug 12, 2015 08:48 AM CURRENT SMOKER CAREY Yates [facility] Radiology Reports: +/- 30 days of [...] W/WO CONTRAST: MARYELLEN LONG LUCAS LARES N [id number] -1950 [facility] Exm Date: DEC 13, 2021@12:57 Req Phys: ISATU TODD Loc: OP Unknown/0 12-15-2021@13:20 Img Loc: MRI IMAGING (OOS) Service: [facility] MEDICINE (Case [id number] COMPLETE) MRI ABDOMEN W/WO CONTRAST (M RI Detailed) CPT:57405 Reason for Study: further characterization of a [...] new lyphadenopathy REQUESTING MD: Isatu Todd PAGER: [phone] PHONE: [phone] Weight: 232.2 lb [105.32 kg] (12/12/2021 05:00) [...] patient will need to arrange for 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 to take him/her home after the [...] 15, 2021 Date Verified: DEC 15, 2021 Bobcat Operator E-Sig:/ES/MARYELLEN LONG Report: MRI ABDOMEN W/WO [...] MALIGNANCY Primary Interpreting Staff: Staff AMELIA THOMAS (Bobcat Operator) / Dec 10, 2021 09:[address] ABDOMEN & PELVIS: RADIOLOGY,OUTSIDE [facility] [place] LUCAS MEEK N [id number] -1950 M SERVICE [facility] Exm Date: DEC 10, 2021@09:30 Req Phys: ISATU TODD Loc: 1S MED/12-10@10:57 Img Loc: CT SCAN (OOS) Service: [facility] (Case [id number] COMPLETE) CT ABD & PELVIS WITHOUT CONT RAST (CT Detailed) CPT:26394 Reason for Study: 71 yo male with [...] INDEX - NO HEIGHTS FOUND Pager number: [phone] STAT orders MUST be call ed to RADIOLOGY [phone] to speak to the appropriate plumbing service technician. Report Status: Verified Date Reported: DEC 10, 2021 Date Verified: DEC 10, 2021 Bobcat Operator E-Sig: Report: EXAM: CT abdomen and [...] ph nodes. READING PHYSICIAN: Ramone Munoz D.O. -[phone] 12/10/2021 10:55 EDT [facility] National Teleradiology Program [phone] (For Medical Practitioner Use Only ) [address] [facility], [facility] [address], [address] [place] [address] Attention Patients / Veterans: If you have ques tions or concerns about these test results, please contact your o rdering provider or primary care team. Primary Diagnostic Code: SIGNIFICANT ABNORMALIT Y, ATTN NEEDED Primary Interpreting Staff: RADIOLOGY,OUTSIDE SERVICE, Staff Physician / Dec 09, 2021 07:34 AM BASW (MODIFIED): JESSIE CHENEY [facility] LUCAS MEEK N [id number] -1950 [facility] Exm Date: DEC 09, 2021@07:34 Req Phys: ISATU TODD Loc: 1S MED/12-09@11:26 Img Loc: XRAY (OOS) Service: [facility] MEDICINE (Case [id number] COMPLETE) BASW (MODIFIED) (RAD Detaile d) CPT:80490 Contrast Media : Barium Reason for Study: dysphagia ?esophageal spasm Clinical History: Report Status: Verified Date Reported: DEC 09, 2021 Date Verified: DEC 09, 2021 Bobcat Operator E-Sig:/ES/JESSIE CHENEY Report: BASPrincess (MODIFIED) , [...] REQUIRED Primary Interpreting Staff: JESSIE CHENEY, RADIOLOGIST (Bobcat Operator) /TLC Dec 06, 2021 12:[address] CHEST (INCLUDES ADRENALS): JESSIE CHENEY [facility] LUCAS MEEK N [id number] -1950 [facility] Exm Date: DEC 06, 2021@12:59 Req Phys: JELANI SÁNCHEZ Pat Loc: [facility] ED DAYS M 1RD (Req'g Loc) Img Loc: CT SCAN (OOS) Service: Unknown (Case [id number] COMPLETE) CT THORAX W/O CONT (CT Detai led) CPT:91787 Reason for Study: Opacification right chest Clinical History: No contrast allergy BUN: 13 (12/06/21 12:00) CREATI: 0.90 (12/06/21 12:00) eGFR 05/16/21 09:43 52 L Weight: 232.6 lb [105.51 kg] (12/06/2021 11:40) BODY MASS INDEX - NO HEIGHTS FOUND Pager number: [phone] STAT orders MUST be called t o RADIOLOGY [phone] to speak to the appropriate plumbing service technician. Indications - Other: Opacification right chest, covid positive, lung cancer histo Report Status: Verified Date Reported: DEC 06, 2021 Date Verified: DEC 06, 2021 Bobcat Operator E-Sig:/ES/JESSIE CHENEY Report: CT THORAX W/O [...] REQUIRED Primary Interpreting Staff: JESSIE CHENEY, RADIOLOGIST (Bobcat Operator) Primary Interpreting Resident: PRINCE CHAMPION, Resident /BR Dec 06, 2021 11:58 AM CHEST SINGLE VIEW: JESSIE CHENEY LUCAS MEEK N [id number] -1950 [facility] Exm Date: DEC 06, 2021@11:58 Req Phys: JELANI SÁNCHEZ Pat Loc: [facility] ED DAYS M 1RD (Req'g Loc) Img Loc: XRAY (OOS) Service: Unknown (Case [id number] COMPLETE) CHEST SINGLE VIEW (RAD Detai led) CPT:16455 Proc Modifiers : PORTABLE EXAM Reason for Study: SOB, home covid test positive Clinical History: Report Status: Verified Date Reported: DEC 06, 2021 Date Verified: DEC 06, 2021 Bobcat Operator E-Sig:/ES/JESSIE CHENEY Report: Exam type: Chest [...] REQUIRED Primary Interpreting Staff: JESSIE CHENEY, RADIOLOGIST (Bobcat Operator) /TLC Pathology Reports: +/- 30 days [...] 10:28 AM LR SURGICAL PATHOLOGY REPORT: STEFANY MILELR [place] LOCAL TITLE: LR SURGICAL PATHOLOGY REPORT [facility] STANDARD TITLE: PATHOLOGY REPORT DATE OF NOTE: JAN 03, 2022@10:28:01 ENTRY DATE: JAN 03, 2022@10:28:01 AUTHOR: NIURKA MILLER EXP COSIGNER: URGENCY: STATUS: COMPLETED $APHDR Reporting Lab: CAREY DOYLE [facility] [CLIA# [id number]] [address] [place] [address] - - - - - - [...] automatically d ocumented from SURGERY package case #[id number] Field (#32) PRINCIPAL PRE-OP DIAGNOSIS, (#.72) OTHER [...] automatically d ocumented from SURGERY package case #[id number] Field (#34) PRINCIPAL POST-OP DIAG, (#.74) OTHER [...] Label: Lucas Meek Paperwork: Lucas Meek Cassette: [id number];..;KALYANI;.;405;[id number] Specimen is labeled: ES bx Received in formalin are several pieces of pale boyd and brown tissue, 1.2 x 0.7 cm in aggregate. Submitted entirely in 1 cassette [id number];..;KALYANI;.;405;[id number] SAW 12/15/2021 Microscopic exam: *+* MODIFIED REPORT *+* (Last modified: JAN 03, 2022@09:30:20 typed by NIURKA WADDELL) DIAGNOSIS: A. 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 Kendell long. TIARA Coombs was notified on 12/21/21. Modified on 01/03/22 to include report from [facility] stating that tumor is NEGATIVE for her2/ matheus amplification. The attending pathologist who signature mansoor ears on this report has reviewed all diagnostic slides and has edited t he gross and/or microscopic portion of this report in rendering the final pathologic diagnosis. [address] [address] CPT: 25569 /emely/ NIURKA Yeung MD Signed Jan 03, 2022@10:28 Performing Laboratory: Surgical Pathology Report Performed By: CAREY MONTOYA [facility] [CLIA# [id number]] [address] [place] [address] $FTR - - - - - [...] - - LUCAS MEEK STANDARD FORM 515 ID:[id number] SEX:M :1950 AGE: 71 LOC: SDM END PCP: Isatu Todd /emely/ NIURKA MILLER Staff MD Signed: 01/03/2022 10:28 Dec 21, 2021 11:46 AM LR SURGICAL PATHOLOGY REPORT: STEFANY MILLER [place] LOCAL TITLE: LR SURGICAL PATHOLOGY REPORT [facility] STANDARD TITLE: PATHOLOGY REPORT DATE OF NOTE: DEC 21, 2021@11:46:59 ENTRY DATE: DEC 21, 2021@11:46:59 AUTHOR: NIURKA MILLER EXP COSIGNER: URGENCY: STATUS: COMPLETED $APHDR Reporting Lab: CAREY DOYLE [facility] [CLIA# [id number]] [address] [place] [address] - - - - - - [...] automatically d ocumented from SURGERY package case #[id number] Field (#32) PRINCIPAL PRE-OP DIAGNOSIS, (#.72) OTHER [...] automatically d ocumented from SURGERY package case #[id number] Field (#34) PRINCIPAL POST-OP DIAG, (#.74) OTHER [...] Label: Lucas Meek Paperwork: Lucas Meek Cassette: [id number];..;KALYANI;.;405;[id number] Specimen is labeled: ES bx Received in formalin are several pieces of pale boyd and brown tissue, 1.2 x 0.7 cm in aggregate. Submitted entirely in 1 cassette [id number];..;KALYANI;.;405;[id number] SAW 12/15/2021 Microscopic exam: DIAGNOSIS: A. 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 Kendell long. TIARA Coombs was notified on 12/21/21. The attending pathologist who signature mansoor ears on this report has reviewed all diagnostic slides and has edited t he gross and/or microscopic portion of this report in rendering the final pathologic diagnosis. [address] [address] CPT: 87308 /emely/ NIURKA Yeung MD Signed Dec 21, 2021@11:46 Performing Laboratory: Surgical Pathology Report Performed By: [facility] [CLIA# [id number]] [address] [place] [address] $FTR - - - - - [...] - - LUCAS MEEK STANDARD FORM 515 ID:[id number] SEX:M :1950 AGE: 71 LOC: [facility] END PCP: Isatu Todd /emely/ NIURKA Yeung MD Signed: 12/21/2021 11:46 Dec 06, 2021 03:30 PM LR MICROBIOLOGY REPORT: [facility] Reporting Lab: [facility] [CLIA# [id number]] [address] [place] [address] Accession [UID]: [id number] [[id number]] Receiv ed: Dec 06, 2021@16:14 Collection sample: BLOOD CUL T BOTTLE(NIRMAL/AERO)Collection date: Dec 06, 2021 15:30 Site/Specimen: BLOOD Provider: JELANI SÁNCHEZ Comment on specimen: LAC Test(s) ordered: BLOOD CULTURE ANAEROBI C....... completed: Dec 12, 2021 06:18 * BACTERIOLOGY FINAL REPORT => Dec 12, 2021 06:1 8 TECH CODE: [id number] Bacteriology Remark(s): NO GROWTH IN 5 DAYS =--=--=--=--=--=--=--=--=--=--=--=--=--= --=--=--=--=--=--=--=--=--=--=--=--=-- Performing Laboratory: Bacteriology Report Performed By: [facility] [CLIA# [id number]] [address] [place] [address] Dec 06, 2021 03:30 PM LR MICROBIOLOGY REPORT: [facility] Reporting Lab: [facility] [CLIA# [id number]] [address] [place] [address] Accession [UID]: [id number] [[id number]] Receiv ed: Dec 06, 2021@16:14 Collection sample: BLOOD CUL T BOTTLE(NIRMAL/AERO)Collection date: Dec 06, 2021 15:30 Site/Specimen: BLOOD Provider: JELANI SÁNCHEZ Comment on specimen: LAC Test(s) ordered: BLOOD CULTURE AEROBIC. ........ completed: Dec 12, 2021 06:17 * BACTERIOLOGY FINAL REPORT => Dec 12, 2021 06:1 7 TECH CODE: [id number] Bacteriology Remark(s): NO GROWTH IN 5 DAYS =--=--=--=--=--=--=--=--=--=--=--=--=--= --=--=--=--=--=--=--=--=--=--=--=--=-- Performing Laboratory: Bacteriology Report Performed By: [facility] [CLIA# [id number]] [address] [place] [address]
--- OUTSIDE RECORDS SUMMARY | 2022-01-19 08:24 | XMS_ITS ---
DAILY HOSPITALIZATION DATA [facility] Encounter Summary Created on:December 08, 2021 Patient:LUCAS MEEK Sex:Male :1950 Author Organization [facility] Address [address] [place] [id number] Support Name Relationship Address Phone YUSRA MEEK Unavailable [address] [place] [address] YUSRA MEEK Unavailable [address] [place] [address] CLAY MOSLEY Unavailable Unavailable SJ SANTACRUZ Unavailable [...] MEDICARE MEDICARE PART Jun 18, PART A [id number] DO KALYANI PATIENT (WNR) (M) A 2016 13A 1 [place] MEDICARE MEDICARE PART Jun 18, PART B [id number] DO KALYANI PATIENT (WNR) (M) B 2016 13A 1 [place] MEDICARE MEDICARE PART Jun 18, PART A [id number] KALYANIDO PATIENT (WNR) (M) A 2017 VH81 2 [place] MEDICARE MEDICARE PART Jun 18, PART B [id number] DO KALYANI PATIENT (WNR) (M) B 2017 VH81 2 [place] UNITED MEDICARE MCR(Jun 18 [id number] Luz MEEK PATIENT HEALTHCARE ADVANTAGE NR) 2021 37 0 [facility] (WNR) Selected Encounter This section includes the information on record at [place] for the Encounter. Date/Time Encounter Type Encounter Description Reason Provider Source Dec 08, 2021 10:42 Inpatient Visit DAILY HOSPITALIZATION DATA AM [facility] Encounter Template Text not used by [place] Plan of Treatment: Future Appointments (+ 6 months) and Future Tests (+/- 45 days) The Plan of Treatment section includes future care activities for the patient from all [place] treatmentfacilities. This section includes future appointments and future orders which are active, pending orscheduled.Future Appointments This section includes appointments that were scheduled to occur 6 months from the date of the Encounter, up to a maximum of 20 appointments. The data comes from all [place] treatment facilities. Appointment Date/Time Appointment Type Appointment Facili ty Name Dec 21, 2021 08:00 AM AMB[place]ORY [place]ONE [place] [facility] Jan 06, 2022 02:00 PM [place] [facility] Jan 10, 2022 11:30 AM [facility] Jan 24, 2022 08:00 AM [place] [facility] Feb 21, 2022 10:00 AM [place]ORY [place] [facility] Mar 21, 2022 10:30 AM [facility]UL[facility] - MEDICINE [facility] Active, Pending, and Scheduled [...] the Encounter. The data comes from all [place] treatment [facility]. Test Date/Time Test Type Test Details Facility Name October 31, 2021 07:37 AM Consult Order [facility] [employer] November 15, 2021 10:37 AM Consult Order [facility] CARE-PODIATRY Cons [employer] Dec 06, 2021 12:52 PM [place]acy [place] In[place] Order [facility] Dec 06, 2021 03:24 PM Pharmacy [place] [facility] Dec 06, 2021 03:40 PM [place]acy [place] [facility] Dec 15, 2021 08:41 AM Consult Order SPEECH PATHOLOGY [place] Cons [facility] [employer] Jan 15, 2022 10:08 PM Consult Order [facility] CARE-PALLIATIVE CARE Cons [employer] Lab Results: +/- 30 days of [...] Reference Range Comment Dec 15, 2021 [place] P4 GLU,BUN,CREAT,LYTES,CA Speci men Type: PLASMA 06:43 AM [facility] Comment: Tests performed on Cityzenith (405) SN:[id number] Ordering Provid er: ISATU TODD Report Released Date/Time: Dec 11, 2021 07:42 AM Reporting Lab: [facility] [address] [facility] [address] Performing Lab: [facility] [address] [facility] [address] UREA NITROGEN 9 7-25 SODIUM 137 135-145 POTASSIUM 3.8 3.5-5.0 CHLORIDE 105 100-110 CARBON DIOXIDE 26 20-30 ANION GAP 6 4-16 GLUCOSE 102 H 65-100 CREATININE 0.64 0.5-1.5 CALCIUM 8.1 L 8.5-10.5 eGFR(CKD-EPI 2020) >90.0 >60 Dec 15, 2021 06:43 AM [facility] CBC PROFILE Sp ecimen Type: BLOOD No comment enter ed. Ordering Provid er: ISATU TODD Report Released Date/Time: Dec 10, 2021 07:22 AM Reporting Lab: [facility] [address] [facility] [address] Performing Lab: [facility] [address] [facility] [address] WBC 5.7 4.5-11.0 RBC 4.22 L 4.23-5.66 [...] ABSOLUTE NRBC 0.00 0-0 Dec 14, 2021 [facility] CYTOGENETIC Specimen Type: ESOPHAGUS 02:59 PM [facility] FISH([facility]) Comment: ~For T est: CYTOGENETIC FISH([facility]) ~FISH HER 2 NUE, FFPE See full report in AuthorBee Image display viewer/tab#LAB-Reference Ordering Provid er: NIURKA MILLER Report Released Date/Time: Dec 21, 2021 12:11 PM Reporting Lab: [facility] [address] [facility] [address] Performing Lab: [facility] CYTOGENETIC FISH([facility]) comment Dec 14, 2021 [facility] P4 GLU,BUN,CREAT,LYTES,CA Speci men Type: PLASMA 06:27 AM [facility] Comment: Tests performed on Cityzenith (405) SN:[id number] Ordering Provid er: ISATU TODD Report Released Date/Time: Dec 11, 2021 07:42 AM Reporting Lab: [facility] [address] [facility] [address] Performing Lab: [facility] [address] [facility] [address] UREA NITROGEN 10 7-25 SODIUM 137 135-145 [...] Lab: [facility] [address] [facility] [address] Performing Lab: [facility] [address] [facility] [address] WBC 6.0 4.5-11.0 RBC 4.29 4.23-5.66 HGB [...] ABSOLUTE NRBC 0.00 0-0 Dec 13, 2021 [facility] P4 GLU,BUN,CREAT,LYTES,CA Speci men Type: PLASMA 06:34 AM [facility] Comment: Tests performed on Cityzenith (405) SN:[id number] Ordering Provid er: ISATU TODD Report Released Date/Time: Dec 11, 2021 07:42 AM Reporting Lab: [facility] [address] [facility] [address] [facility] [address] [facility] [address] UREA NITROGEN 12 7-25 SODIUM 136 135-145 [...] Lab: [facility] [address] [facility] [address] Performing Lab: [facility] [address] [facility] [address] WBC 5.6 4.5-11.0 RBC 4.28 4.23-5.66 HGB [...] ABSOLUTE NRBC 0.00 0-0 Dec 12, 2021 [facility] P4 GLU,BUN,CREAT,LYTES,CA Speci men Type: PLASMA 06:21 AM [facility] Comment: Tests performed on Cityzenith (405) SN:[id number] Ordering Provid er: ISATU TODD Report Released Date/Time: Dec 11, 2021 07:42 AM Reporting Lab: [facility] [address] [facility] [address] Performing Lab: [facility] [address] [facility] [address] UREA NITROGEN 11 7-25 SODIUM 139 135-145 [...] Reporting Lab: [facility] [address] [facility] [address] [facility] Lab: [facility] [address] [facility] [address] WBC 5.5 4.5-11.0 RBC 4.37 4.23-5.66 HGB [...] 0.00 0-0 Dec 12, 2021 06:00 AM Algram[employer]T [facility] MAGNESIUM Sp ecimen Type: PLASMA Comment: Testin g Performed on Cityzenith (405) SN:[id number] Ordering Provid er: ISATU TODD Report Released Date/Time: Dec 12, 2021 08:24 AM Reporting Lab: [place] [employer] [facility] [address] [facility] [address] Performing Lab: [employer] [place] [employer] [address] [facility] [address] MAGNESIUM 1.8 1.6-2.6 Dec 12, 2021 06:00 AM Algram[employer]T [employer] PHOSPHORUS Sp ecimen Type: PLASMA Comment: Testin g Performed on Cityzenith (405) SN:[id number] Ordering Provid er: ISATU TODD Report Released Date/Time: Dec 12, 2021 08:24 AM Reporting Lab: [place] [employer] [facility] [address] [facility] [address] Performing Lab: [place] [employer] [address] [facility] [address] PHOSPHORUS 3.1 2.5-5.0 Dec 11, 2021 06:15 AM [employer] [place] [employer] ELECTROLYTES Sp ecimen Type: PLASMA Comment: Tests performed on Cityzenith (405) SN:[id number] Ordering Provid er: ISATU TODD Report Released Date/Time: Dec 10, 2021 07:22 AM Reporting Lab: [place] [employer] [facility] [address] [facility] [address] Performing Lab: [place] [employer] [facility] [address] [facility] [address] SODIUM 137 135-145 POTASSIUM 4.3 3.5-5.0 CHLORIDE 108 100-110 CARBON DIOXIDE 20 20-30 ANION GAP 9 4-16 Dec 11, 2021 06:15 AM [place]T [facility] CBC PROFILE Sp ecimen Type: BLOOD Comment: Result s checked Ordering Provid er: ISATU TODD Report Released Date/Time: Dec 10, 2021 07:22 AM Reporting Lab: [place] [employer] [facility] [address] [facility] [address] Performing Lab: [place] [facility] [address] [facility] [address] WBC 5.8 4.5-11.0 RBC 4.37 4.23-5.66 HGB [...] ecimen Type: PLASMA Comment: Tests performed on Cityzenith (652) SN:[id number] Results checked Ordering Provid er: ISATU TODD Report Released Date/Time: Dec 11, 2021 07:44 AM Reporting Lab: [facility] [place] [facility] [address] [facility] [address] Performing Lab: [place] OMEGAT FLMROC [address] [facility] [address] PHOSPHORUS 3.0 2.5-5.0 Dec 10, 2021 08:05 AM [place] [facility] MAGNESIUM Sp ecimen Type: PLASMA Comment: [place] [id number] on Dec 10, 2021@08:31 Tests performed on Cityzenith (405) SN:[id number] Ordering Provid er: ISATU TODD Report Released Date/Time: Dec 10, 2021 07:22 AM Reporting Lab: [place] [facility] [address] [place] [facility] [place] [address] Performing Lab: [place] [facility] [address] [place] [facility] [place] [address] MAGNESIUM 1.7 1.6-2.6 Dec 10, 2021 08:05 AM [place] UREA NITROGEN Specimen Type: PLASMA [facility] Comment: [place] [id number] on Dec 10, 2021@08:31 Tests performed on Cityzenith (405) SN:[id number] Ordering Provid er: ISATU TODD Report Released Date/Time: Dec 10, 2021 07:22 AM Reporting Lab: [place] [facility] [address] [place] [facility] [place] [address] Performing Lab: [place] [facility] [address] [place] [facility] [place] [address] UREA NITROGEN 8 7-25 Dec 10, 2021 08:05 AM [place] [facility] PHOSPHORUS Sp ecimen Type: PLASMA Comment: [place] [id number] on Dec 10, 2021@08:31 Tests performed on Cityzenith (405) SN:[id number] Ordering Provid er: ISATU TODD Report Released Date/Time: Dec 10, 2021 07:22 AM Reporting Lab: [place] [facility] [address] [place] [facility] [place] [address] Performing Lab: [place] [facility] [address] [place] [facility] [place] [address] PHOSPHORUS 1.8 L 2.5-5.0 Dec 10, 2021 08:05 AM [place] [facility] GLUCOSE Sp ecimen Type: PLASMA Comment: [place] [id number] on Dec 10, 2021@08:31 Tests performed on Cityzenith (405) SN:[id number] Ordering Provid er: ISATU TODD Report Released Date/Time: Dec 10, 2021 07:22 AM Reporting Lab: [place] [facility] [address] [facility] [address] Performing Lab: [place] [facility] [address] [facility] [address] GLUCOSE 144 H 65-100 Dec 10, 2021 08:05 AM [place] [facility] CALCIUM Sp ecimen Type: PLASMA Comment: [place] [id number] on Dec 10, 2021@08:31 Tests performed on Cityzenith (405) SN:[id number] Ordering Provid er: ISATU TODD Report Released Date/Time: Dec 10, 2021 07:22 AM Reporting Lab: [place] [facility] [address] [facility] [address] Performing Lab: [place] [facility] [address] [facility] [address] CALCIUM 8.3 L 8.5-10.5 Dec 10, 2021 08:05 AM [place] [facility] ELECTROLYTES Sp ecimen Type: PLASMA Comment: [place] [id number] on Dec 10, 2021@08:31 Tests performed on Pham Synata (405) SN:[id number] Ordering Provid er: ISATU TODD Report Released Date/Time: Dec 10, 2021 07:22 AM Reporting Lab: [place] [facility] [address] [facility] [address] Performing Lab: [place] [facility] [address] [facility] [address] SODIUM 139 135-145 POTASSIUM 3.7 3.5-5.0 CHLORIDE 107 100-110 CARBON DIOXIDE 24 20-30 ANION GAP 8 4-16 Dec 10, 2021 08:05 [place] CREATININE WITH eGFR Specime n Type: PLASMA AM [facility] PANEL Comment: [place] [id number] on Dec 10, 2021@08:31 Tests performed on Cityzenith (405) SN:[id number] Ordering Provid er: ISATU TODD Report Released Date/Time: Dec 10, 2021 07:22 AM Reporting Lab: [place] [facility] [address] [facility] [address] Performing Lab: [place] [facility] [address] [facility] [address] CREATININE 0.78 0.5-1.5 eGFR(CKD-EPI 2020) >90.0 >60 Dec 10, 2021 08:05 AM [facility] CBC PROFILE Sp ecimen Type: BLOOD No comment enter ed. Ordering Provid er: ISATU TODD Report Released Date/Time: Dec 10, 2021 07:22 AM Reporting Lab: [place] [facility]MEGAT [facility] [address] [facility] [address] Performing Lab: [place] [facility] [address] [facility] [address] WBC 7.0 4.5-11.0 RBC 4.54 4.23-5.66 HGB [...] 0.00 0-0 Dec 09, 2021 06:46 AM [facility] MAGNESIUM Sp ecimen Type: PLASMA Comment: Tests performed on Cityzenith (216) SN:[id number] Ordering Provid er: ISATU TODD Report Released Date/Time: Dec 08, 2021 10:23 AM Reporting Lab: [facility] [address] [facility] [address] Performing Lab: [facility] [address] [facility] [address] MAGNESIUM 1.6 1.6-2.6 Dec 09, 2021 [facility] P4 GLU,BUN,CREAT,LYTES,CA Speci men Type: PLASMA 06:46 AM [facility] Comment: Tests performed on Cityzenith (405) SN:[id number] Ordering Provid er: ISATU TODD Report Released Date/Time: Dec 08, 2021 05:00 PM Reporting Lab: [facility] [address] [facility] [address] Performing Lab: [facility] [address] [facility] [address] UREA NITROGEN 6 L 7-25 SODIUM 134 [...] Lab: [facility] [address] [facility] [address] Performing Lab: [facility] [address] [facility] [address] WBC 7.1 4.5-11.0 RBC 4.40 4.23-5.66 HGB [...] 0.00 0-0 Dec 08, 2021 06:39 AM JEAN [employer] T [facility] MAGNESIUM Sp ecimen Type: PLASMA Comment: Testin g Performed on Cityzenith (405) SN:[id number] Ordering Provid er: ISATU TODD Report Released Date/Time: Dec 07, 2021 10:32 AM Reporting Lab: [facility] [address] [facility] [address] Performing Lab: [facility] [address] [facility] [address] MAGNESIUM 1.5 L 1.6-2.6 Dec 08, 2021 JEAN [employer] T P4 GLU,BUN,CREAT,LYTES,CA Speci men Type: PLASMA 06:39 AM [facility] Comment: Testin g Performed on Cityzenith (405) SN:[id number] Ordering Provid er: ISATU TODD Report Released Date/Time: Dec 07, 2021 10:32 AM Reporting Lab: evocatal T [facility] [address] [facility] [address] Performing Lab: [facility] [address] [facility] [address] UREA NITROGEN 6 L 7-25 SODIUM 136 135-145 POTASSIUM 3.3 L 3.5-5.0 CHLORIDE 104 100-110 CARBON DIOXIDE 22 20-30 ANION GAP 10 4-16 GLUCOSE 133 H 65-100 CREATININE 0.76 0.5-1.5 CALCIUM 8.4 L 8.5-10.5 eGFR(CKD-EPI 2020) >90.0 >60 Dec 08, 2021 06:39 AM [place] [employer] T [facility] CBC PROFILE Sp ecimen Type: BLOOD No comment enter ed. Ordering Provid er: ISATU TODD Report Released Date/Time: Dec 07, 2021 10:32 AM Reporting Lab: [facility] [address] [facility] [address] Performing Lab: [facility] [address] [facility] WBC 8.4 4.5-11.0 RBC 4.75 [...] NRBC 0.00 0-0 Dec 07, 2021 06:42 [facility] LIVER PROFILE Specimen Typ e: PLASMA AM [facility] Comment: Tests performed on Cityzenith (405 SN:[id number] Ordering Provid er: PORFIRIO WALTERS Report Released Date/Time: Dec 06, 2021 06:57 PM Reporting Lab: [facility] [address] [facility] [address] Performing Lab: [facility] [address] [facility] [address] PROTEIN, TOTAL 5.7 L 6.0-8.5 ALBUMIN 2.4 L 3.2-5.0 BILIRUBIN, TOTAL 0.4 0.2-1.2 ALKALINE PHOSPHATASE 109 40-150 ALT(SGPT) 10 7-52 AST(SGOT) 15 5-34 FIB-4 SCORE 1.92 <2.67 Dec 07, 2021 [facility] P4 GLU,BUN,CREAT,LYTES,CA Speci men Type: PLASMA 06:42 AM [facility] Comment: Tests performed on Cityzenith (405) SN:[id number] Ordering Provid er: PORFIRIO WALTERS Report Released Date/Time: Dec 06, 2021 06:57 PM Reporting Lab: [place] [facility] [address] [facility] [address] Performing Lab: [place] [facility] [address] [facility] [address] UREA NITROGEN 9 7-25 SODIUM 135 135-145 POTASSIUM 3.5 3.5-5.0 CHLORIDE 103 100-110 CARBON DIOXIDE 22 20-30 ANION GAP 10 4-16 GLUCOSE 92 65-100 CREATININE 0.73 0.5-1.5 CALCIUM 8.0 L 8.5-10.5 eGFR(CKD-EPI 2020) >90.0 >60 Dec 07, 2021 06:42 AM [place] CBC PROFILE Specimen Type: BLOOD [facility] No comment enter ed. Ordering Provid er: PORFIRIO WALTERS Report Released Date/Time: Dec 06, 2021 06:57 PM Reporting Lab: [place] [facility] [address] [facility] [address] Performing Lab: [facility] [address] [facility] [address] WBC 5.7 4.5-11.0 RBC 4.15 L 4.23-5.66 [...] [facility] %) AUTOMATED Comment: Tests performed on Cityzenith (405) SN:[id number] Ordering Provid er: ISATU TODD Report Released Date/Time: Dec 07, 2021 10:28 AM Reporting Lab: [place] [facility] [address] [facility] [address] Performing Lab: [place] [facility] [address] [facility] [address] RETICULOCYTES (%) AUTOMATED 1.23 0. 6-2.0 RETICULOCYTES (ABS) AUTOMATED 0.052 0.030-0.090 Dec 06, 2021 09:45 [place] MRSA SURVL NARES Specimen Ty pe: NARES PM [facility] DNA No comment enter ed. Ordering Provid er: ALVARO VARGHESE Report Released Date/Time: Dec 07, 2021 02:20 AM Reporting Lab: [place] [facility] [address] [facility] [address] Performing Lab: [place] [facility] [address] [facility] [address] MRSA SURVL NARES DNA NEGATIVE NEGATIVE Dec 06, 2021 06:00 [place] URINALYSIS W/REFLEX TO Speci men Type: URINE PM [facility] CULTURE No comment enter ed. Ordering Provid er: JELANI SÁNCHEZ Report Released Date/Time: Dec 06, 2021 11:57 AM Reporting Lab: [place] [facility] [address] [facility] [address] Performing Lab: [place] [facility] [address] [facility] [address] URINE COLOR Arlin YELLOW SPECIFIC GRAVITY 1.029 [...] 21, R[place] VARIANT Comment: https://www.cdc.gov/coronavirus/2019-ncov/cases-updates/variant- surveillance/variant-info.html The [employer] SARS CoV 2 The [employer] Research Assay-GX is a next-generation sequencing (NGS) assa 2021 [facility] SEQUENCING y that determine s the complete genome sequence of the SARS-CoV-2 virus. The assay contains variant-tolerant primers to broaden and improve the coverage for variant detection and increase the sensitivity 12:00 [facility] PNL(WH) of the panel to enable detection from lower viral titer samples. The assay is run on the [employer] Sequencer, which performs automated library preparation, sequencing, analysis, and reporting. PM The sequence an alysis includes determination of viral phylogenetic lineage by comparison to the reference strain Wu[place]-Hu-1, GenBank: [id number]. Sequence determination may not be possible owing [...] [facility] [address] [facility] [address] Performing Lab: [facility] [address] [place] [facility] [address] SARS-CoV-2 CLADE() 22C (OMICRON) SARS-CoV-2 LINEAGE() BA.2.12.1 Dec 06, 2021 12:00 [facility] COVID-19 AG SCREEN Specimen Type: NASAL CAVITY PM [facility] PANEL BINAX(405) Comment: Testi ng Performed By: Mike Briscoe Ordering Provid er: JELANI SÁNCHEZ Report Released Date/Time: Dec 08, 2021 08:23 AM Reporting Lab: [facility] [address] [facility] [address] Performing Lab: [facility] [address] [facility] [address] COVID-19 AG SCRN(wrj BINAX) POSITIVE HH NE G Dec 06, 2021 [facility] P4 GLU,BUN,CREAT,LYTES,CA Speci men Type: PLASMA 12:00 PM [facility] Comment: Testin g Performed on Pham Topper Press Operator (405) SN:[id number] Ordering Provid er: JELANI SÁNCHEZ Report Released Date/Time: Dec 06, 2021 11:57 AM Reporting Lab: [facility] [address] [facility] [address] Performing Lab: [facility] [address] [facility] [address] UREA NITROGEN 13 7-25 SODIUM 138 135-145 POTASSIUM 3.8 3.5-5.0 CHLORIDE 103 100-110 CARBON DIOXIDE 23 20-30 ANION GAP 12 4-16 GLUCOSE 105 H 65-100 CREATININE 0.90 0.5-1.5 CALCIUM 8.7 8.5-10.5 eGFR(CKD-EPI 2020) >90.0 >60 Dec 06, 2021 12:00 PM [facility] TROPONIN II Sp ecimen Type: PLASMA Comment: Tests performed on Pham [employer] Operator (405) SN:[id number] Ordering Provid er: JELANI SÁNCHEZ Report Released Date/Time: Dec 06, 2021 11:57 AM Reporting Lab: [place] [facility] [address] [facility] [address] Performing Lab: [facility] [address] [facility] [address] TROPONIN II 0.03 0.00-0.29 Dec 06, 2021 12:00 PM [facility] LIVER PROFILE Sp ecimen Type: PLASMA Comment: Testin g Performed on Pham [employer]pper Press Operator (405) SN:[id number] Ordering Provid er: JELANI SÁNCHEZ Report Released Date/Time: Dec 06, 2021 11:57 AM Reporting Lab: [facility] [address] [facility] [address] Performing Lab: [facility] [address] [facility] [address] PROTEIN, TOTAL 6.6 6.0-8.5 ALBUMIN 2.8 L 3.2-5.0 BILIRUBIN, TOTAL 0.6 0.2-1.2 ALKALINE PHOSPHATASE 134 40-150 ALT(SGPT) 13 7-52 AST(SGOT) 18 5-34 FIB-4 SCORE 1.94 <2.67 Dec 06, 2021 12:00 PM [facility] B[facility](P[facility] Sp ecimen Type: PLASMA Comment: Tests performed on [employer] Operator (405) [id number] Ordering Provid er: JELANI SÁNCHEZ Report Released Date/Time: Dec 06, 2021 11:57 AM Reporting Lab: [facility] [address] [facility] [id number] Performing Lab: [facility] [address] [facility] [address] BNP(P) 224.8 H 10-100 Dec 06, 2021 [facility] COVID-19+FLU/RSV DIAGNOSTIC Spe cimen Type: NASOPHARYNX 12:00 PM [facility] PANEL(405) Comment: Tests performed on [employer] Genexpert (405) Critical results called to and read back by: ALESHIA WILKINSON RN 12/06/21 @ 1312 Ordering Provid er: JELANI SÁNCHEZ Report Released Date/Time: Dec 06, 2021 11:57 AM Reporting Lab: [facility] [address] [facility] [address] [facility] [address] [facility] [address] FLU A(PCR) NEGATIVE NEGATIVE FLU B(PCR) NEGATIVE NEGATIVE RSV(PCR) NEGATIVE NEGATIVE COVID-19([id number]) DETECTED HH NO T DETECTED Dec 06, 2021 12:[address] [facility] CBC PROFILE Sp ecimen Type: BLOOD No comment enter ed. Ordering Provid er: JELANI SÁNCHEZ Report Released Date/Time: Dec 06, 2021 11:57 AM Reporting Lab: [facility] [address] [facility] [address] Performing Lab: [facility] [facility] [address] [facility] [address] WBC 7.2 4.5-11.0 RBC 4.86 4.23-5.66 HGB [...] 0 2021 11:30 /min mm[Hg] [facility] Dec 08, 99.2 F 94 126/76 18 /min 98 % 0 2021 02:15 /min mm[Hg] [facility] Dec 08, 0 2021 10:37 [facility] Dec 08, 97.5 F 106 122/76 16 /min 97 % 0 JEAN 2021 05:55 /min mm[Hg] [facility] Dec 08, 0 2021 03:52 [facility] Social History: Smoking Status (Most current) and Tobacco Use (All prior to encounter date) This section includes the most current, and the historical, smoking and tobacco-related health factors from the [place] facility where the Encounter took place.Current Smoking Status This section includes the most current smoking, or tobacco-related health factor, from the [place] facility where the Encounter took place. Date/Time Current Smoking Status Comment Facility Dec 06, 2021 11:40 AM QUIT TOBACCO USE > 7 YEARS AGO [facility] Tobacco Use History This section includes a history of the smoking, or tobacco- related health factors, that were collected on or before the date of the Encounter. The data comes from the [place] facility where the Encounter took place. Date/Time Smoking Status/Tobacco Use Comment [facility] Apr 01, 2020 01:16 PM QUIT [...] TOBACCO USE IN PAST YEAR [facility] May 01, 2016 03:11 PM QUIT TOBACCO USE IN PAST YEAR [facility] May 01, 2016 11:19 AM QUIT TOBACCO USE IN PAST YEAR [facility] [place] [facility] Mar 16, 2016 12:50 PM V1-PT DECLINES REF TO TOBACCO [facility] [place] [facility] CESS [facility] Mar 16, 2016 12:50 PM V1-PT THINKING ABOUT QUIT [facility] TOBACCO USE Aug 12, 2015 08:48 [...] the Encounter. The data comes from all [place] treatment facilities. Date/Time Radiology Report Provider Source Dec 13, 2021 12:57 PM MRI ABDOMEN W/WO CONTRAST: MARYELLEN LONG LUCAS LARES N [id number] -1950 [facility] Exm Date: DEC 13, 2021@12:57 Req Phys: ISATU TODD Loc: OP Unknown/0 12-15-2021@13:20 Img Loc: MRI IMAGING (OOS) Service: [facility] MEDICINE (Case [id number] COMPLETE) MRI ABDOMEN W/WO CONTRAST (M RI Detailed) CPT:72678 Reason for Study: further characterization of a [...] new lyphadenopathy REQUESTING MD: Isatu Todd PAGER: [phone] PHONE: [phone] Weight: 232.2 lb [105.32 kg] (12/12/2021 05:00) [...] patient will need to arrange for a funeral car driver to take him/her home after [...] 15, 2021 Date Verified: DEC 15, 2021 Range Mechanic E-Sig:/ES/MARYELLEN LONG Report: MRI ABDOMEN W/WO CONTRAST [...] MALIGNANCY Primary Interpreting Staff: Staff AMELIA THOMAS (Range Mechanic) / Dec 10, 2021 09:[address] ABDOMEN & PELVIS: RADIOLOGY,OUTSIDE [facility] LUCAS MEEK N [id number] -1950 M [facility] Exm Date: DEC 10, 2021@09:30 Req Phys: ISATU TODD Loc: 1S MED/12-10@10:57 Img Loc: CT SCAN (OOS) Service: [facility] (Case [id number] COMPLETE) CT ABD & PELVIS WITHOUT CONT RAST (CT Detailed) CPT:71886 Reason for Study: 71 yo male with [...] INDEX - NO HEIGHTS FOUND Pager number: [phone] STAT orders MUST be call ed to RADIOLOGY [phone] to speak to the appropriate solar maintenance technician. Report Status: Verified Date Reported: DEC 10, 2021 Date Verified: DEC 10, 2021 Range Mechanic E-Sig: Report: EXAM: CT abdomen and pelvis [...] ph nodes. READING PHYSICIAN: Ramone Munoz D.O. -[phone] 12/10/2021 10:55 EDT [facility] National Teleradiology Program [phone] (For Medical Practitioner Use Only ) [address] [facility], [address] [place] [address] Attention Patients / Veterans: If you have ques tions or concerns about these test results, please contact your o rdering provider or primary care team. Primary Diagnostic Code: SIGNIFICANT ABNORMALIT Y, ATTN NEEDED Primary Interpreting Staff: RADIOLOGY,OUTSIDE SERVICE, Staff Physician / Dec 09, 2021 07:34 AM BASW (MODIFIED): JESSIE CHENEY [facility] LUCAS MEEK N [id number] -1950 [facility] Exm Date: DEC 09, 2021@07:34 Req Phys: ISATU TODD Loc: 1S MED/12-09@11:26 Img Loc: XRAY (OOS) Service: [facility] MEDICINE (Case [id number] COMPLETE) BASW (MODIFIED) (RAD Detaile d) CPT:57047 Contrast Media : Barium Reason for Study: dysphagia ?esophageal spasm Clinical History: Report Status: Verified Date Reported: DEC 09, 2021 Date Verified: DEC 09, 2021 Range Mechanic E-Sig:/ES/JESSIE CHENEY Report: BASPrincess (MODIFIED) , 12/09/2021 [...] REQUIRED Primary Interpreting Staff: JESSIE CHENEY, RADIOLOGIST (Range Mechanic) /TLC Dec 06, 2021 12:[address] CHEST (INCLUDES ADRENALS): JESSIE CHENEY [facility] LUCAS MEEK N [id number] -1950 [facility] Exm Date: DEC 06, 2021@12:59 Req Phys: JELANI SÁNCHEZ Pat Loc: [facility] ED DAYS M 1RD (Req'g Loc) Img Loc: CT SCAN (OOS) Service: Unknown (Case [id number] COMPLETE) CT THORAX W/O CONT (CT Detai led) CPT:36539 Reason for Study: Opacification right chest Clinical History: No contrast allergy BUN: 13 (12/06/21 12:00) CREATI: 0.90 (12/06/21 12:00) eGFR 05/16/21 09:43 52 L Weight: 232.6 lb [105.51 kg] (12/06/2021 11:40) BODY MASS INDEX - NO HEIGHTS FOUND Pager number: [phone] STAT orders MUST be called t o RADIOLOGY [phone] to speak to the appropriate solar maintenance technician. Indications - Other: Opacification right chest, covid positive, lung cancer histo Report Status: Verified Date Reported: DEC 06, 2021 Date Verified: DEC 06, 2021 Range Mechanic E-Sig:/ES/JESSIE CHENEY Report: CT THORAX W/O CONT [...] REQUIRED Primary Interpreting Staff: JESSIE CHENEY, RADIOLOGIST (Range Mechanic) Primary Interpreting Resident: PRINCE CHAMPION, Resident /BR Dec 06, 2021 11:58 AM CHEST SINGLE VIEW: JESSIE CHENEY LUCAS MEEK N [id number] -1950 [facility] Exm Date: DEC 06, 2021@11:58 Req Phys: JELANI SÁNCHEZ Pat Loc: [facility] ED DAYS M 1RD (Req'g Loc) Img Loc: XRAY (OOS) Service: Unknown (Case [id number] COMPLETE) CHEST SINGLE VIEW (RAD Detai led) CPT:48245 Proc Modifiers : PORTABLE EXAM Reason for Study: SOB, home covid test positive Clinical History: Report Status: Verified Date Reported: DEC 06, 2021 Date Verified: DEC 06, 2021 Range Mechanic E-Sig:/ES/JESSIE CHENEY Report: Exam type: Chest x-ray [...] REQUIRED Primary Interpreting Staff: JESSIE CHENEY, RADIOLOGIST (Range Mechanic) /TLC Pathology Reports: +/- 30 days of [...] the Encounter. The data comes from all [place] treatment facilities. Date/Time Pathology Report Provider Source Jan 03, 2022 10:28 AM LR SURGICAL PATHOLOGY REPORT: STEFANY MILLER [place] LOCAL TITLE: LR SURGICAL PATHOLOGY REPORT [facility] STANDARD TITLE: PATHOLOGY REPORT DATE OF NOTE: JAN 03, 2022@10:28:01 ENTRY DATE: JAN 03, 2022@10:28:01 AUTHOR: NIURKA MILLER EXP COSIGNER: URGENCY: STATUS: COMPLETED $APHDR Reporting Lab: [facility] [CLIA# [id number]] [address] [place] [address] - - - - - - [...] automatically d ocumented from SURGERY package case #[id number] Field (#32) PRINCIPAL PRE-OP DIAGNOSIS, (#.72) OTHER [...] automatically d ocumented from SURGERY package case #[id number] Field (#34) PRINCIPAL POST-OP DIAG, (#.74) OTHER [...] Label: Lucas Meek Paperwork: Lucas Meek Cassette: [id number];..;KALYANI;.;405;[phone] Specimen is labeled: ES bx Received in formalin are several pieces of pale boyd and brown tissue, 1.2 x 0.7 cm in aggregate. Submitted entirely in 1 cassette [id number];..;KALYANI;.;405;[id number] SAW 12/15/2021 Microscopic exam: *+* MODIFIED REPORT *+* (Last modified: JAN 03, 2022@09:30:20 typed by NIURKA WADDELL) DIAGNOSIS: A. 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 Kendell long. TIARA Coombs was notified on 12/21/21. Modified on 01/03/22 to include report from [facility] stating that tumor is NEGATIVE for her2/ matheus amplification. The attending pathologist who signature mansoor ears on this report has reviewed all diagnostic slides and has edited t he gross and/or microscopic portion of this report in rendering the final pathologic diagnosis. [address] [address] CPT: 02441 /emely/ NIURKA Yeung MD Signed Jan 03, 2022@10:28 Performing Laboratory: Surgical Pathology Report Performed By: [facility] [CLIA# [id number]] [address] [place] [address] $FTR - - - - - [...] - - LUCAS MEEK STANDARD FORM 515 ID:[id number] SEX:M :1950 AGE: 71 LOC: SDM END PCP: Isatu Todd /emely/ NIURKA MILLER Staff MD Signed: 01/03/2022 10:28 Dec 21, 2021 11:46 AM LR SURGICAL PATHOLOGY REPORT: STEFANY MILLER [place] LOCAL TITLE: LR SURGICAL PATHOLOGY REPORT [facility] STANDARD TITLE: PATHOLOGY REPORT DATE OF NOTE: DEC 21, 2021@11:46:59 ENTRY DATE: DEC 21, 2021@11:46:59 AUTHOR: NIURKA MILLER EXP COSIGNER: URGENCY: STATUS: COMPLETED $APHDR Reporting Lab: [facility] [CLIA# [id number]] [address] [place] [address] - - - - - - [...] automatically d ocumented from SURGERY package case #[id number] Field (#32) PRINCIPAL PRE-OP DIAGNOSIS, (#.72) OTHER [...] automatically d ocumented from SURGERY package case #[id number] Field (#34) PRINCIPAL POST-OP DIAG, (#.74) OTHER [...] Label: Lucas Meek Paperwork: Lucas Meek Cassette: [id number];..;KALYANI;.;405;[phone] Specimen is labeled: ES bx Received in formalin are several pieces of pale boyd and brown tissue, 1.2 x 0.7 cm in aggregate. Submitted entirely in 1 cassette [id number];..;KALYANI;.;405;[id number] SAW 12/15/2021 Microscopic exam: DIAGNOSIS: A. 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 Kendell long. TIARA Coombs was notified on 12/21/21. The attending pathologist who signature mansoor ears on this report has reviewed all diagnostic slides and has edited t he gross and/or microscopic portion of this report in rendering the final pathologic diagnosis. [address] [address] CPT: 73004 /emely/ NIURKA Yeung MD Signed Dec 21, 2021@11:46 Performing Laboratory: Surgical Pathology Report Performed By: [facility] [CLIA# [id number]] [address] [place] [address] $FTR - - - - - [...] - - LUCAS MEEK STANDARD FORM 515 ID:[id number] SEX:M :1950 AGE: 71 LOC: [facility] END PCP: Isatu Todd /emely/ NIURKA Yeung MD Signed: 12/21/2021 11:46 Dec 06, 2021 03:30 PM LR MICROBIOLOGY REPORT: [facility] Reporting Lab: [facility] [CLIA# [id number]] [address] [place] [address] Accession [UID]: [id number] [[id number]] Receiv ed: Dec 06, 2021@16:14 Collection sample: BLOOD CUL T BOTTLE(NIRMAL/AERO)Collection date: Dec 06, 2021 15:30 Site/Specimen: BLOOD Provider: JELANI SÁNCHEZ Comment on specimen: LAC Test(s) ordered: BLOOD CULTURE ANAEROBI C....... completed: Dec 12, 2021 06:18 * BACTERIOLOGY FINAL REPORT => Dec 12, 2021 06:1 8 TECH CODE: [id number] Bacteriology Remark(s): NO GROWTH IN 5 DAYS =--=--=--=--=--=--=--=--=--=--=--=--=--= --=--=--=--=--=--=--=--=--=--=--=--=-- Performing Laboratory: Bacteriology Report Performed By: [facility] [CLIA# [id number]] [address] [place] [address] Dec 06, 2021 03:30 PM LR MICROBIOLOGY REPORT: [facility] Reporting Lab: [facility] [CLIA# [id number]] [address] [place] [address] Accession [UID]: [id number] [[id number]] Receiv ed: Dec 06, 2021@16:14 Collection sample: BLOOD CUL T BOTTLE(NIRMAL/AERO)Collection date: Dec 06, 2021 15:30 Site/Specimen: BLOOD Provider: JELANI SÁNCHEZ Comment on specimen: LAC Test(s) ordered: BLOOD CULTURE AEROBIC. ........ completed: Dec 12, 2021 06:17 * BACTERIOLOGY FINAL REPORT => Dec 12, 2021 06:1 7 TECH CODE: [id number] Bacteriology Remark(s): NO GROWTH IN 5 DAYS =--=--=--=--=--=--=--=--=--=--=--=--=--= --=--=--=--=--=--=--=--=--=--=--=--=-- Performing Laboratory: Bacteriology Report Performed By: [facility] [CLIA# [id number]] [address] [place] [address]
--- OUTSIDE RECORDS SUMMARY | 2022-01-19 08:24 | XMS_ITS | Encounter Summary ---
:1950 Author Organization Department [facility] Address [address] [place] [id number] Support Name Relationship Address Phone YUSRA MEEK Unavailable [address] [place] [facility] [place] [address] YUSRA MEEK Unavailable [address] - [place] [facility] [place] [address] CLAY MOSLEY Unavailable Unavailable SJ SANTACRUZ Unavailable [...] MEDICARE MEDICARE PART Jun 18, PART A [id number] DO KALYANI PATIENT (WNR) (M) A 2016 13A 1 UGLAS MEDICARE MEDICARE PART Jun 18, PART B [id number] DO KALYANI PATIENT (WNR) (M) B 2016 13A 1 [place]AS MEDICARE MEDICARE PART Jun 18, PART A [id number] KALYANIDO PATIENT (WNR) (M) A 2017 VH81 2 U[place]AS MEDICARE MEDICARE PART Jun 18, PART B [id number] DO KALYANI PATIENT (WNR) (M) B 2017 VH81 2 LAS UNITED MEDICARE MCR(Jun 18 [id number] Luz MEEK PATIENT HEALTHCARE ADVANTAGE NR) 2021 37 0 [facility] (WNR) Selected Encounter This section includes the information on record at [place] for the Encounter. Date/Time Encounter Type Encounter Reason Provider Source Description Dec 08, 2021 ORAL FUNCTION SPEECH-LANGUAGE ICD-10-CM R13.14 LISA HERNANDEZ 09:00 AM THERAPY PATHOLOGY Dysphagia, RYELLEN pharyngoesophageal phase with Provider Comments: Dysphagia, pharyngoesophageal phase IHE Encounter Template Text not used by [facility] Assessments - Encounter Diagnoses This section includes the primary and secondary diagnoses documented for the Encounter. Date/Time Primary/Secondary Diagnosis Name Provider Source Diagnosis Dec 08, 2021 PRIMARY DysphagiaJAVIER MAR [place] 02:30 PM ph[facility]oesophageal [facility] phase Dec 08, 2021 SECONDARY DysphagiaJAVIER MAR [place] 02:30 PM oropharyngeal phase [facility] OC Plan of Treatment: Future Appointments (+ 6 months) and Future Tests (+/- 45 days) The Plan of Treatment section includes future care activities for the patient from all [place] treatmentfacilities. This section includes future appointments and future orders which are active, pending orscheduled.Future Appointments This section includes appointments that were scheduled to occur 6 months from the date of the Encounter, up to a maximum of 20 appointments. The data comes from all [place] treatment facilities. Appointment Date/Time Appointment Type Appointment Facili ty Name Dec 21, 2021 08:00 AM AMBULATORY - NONE [facility] Jan 06, 2022 02:00 PM AMBULATORY - REHAB MEDIC[facility] [place] [facility] Jan 10, 2022 11:30 AM [facility] Jan 24, 2022 08:00 AM [place] [facility] Feb 21, 2022 10:00 AM [facility] Mar 21, 2022 10:30 AM [facility] Active, Pending, and Scheduled [...] the Encounter. The data comes from all [place] treatment facilities. Test Date/Time Test Type Test Details Facility Name October 31, 2021 07:37 AM Consult Order COMMUNITY CARE-EGD [facility] Cons Industrial Maintenance Technician's Choice November 15, 2021 10:37 AM Consult Order [facility] CARE-PODIATRY Cons Industrial Maintenance Technician's Choice Dec 06, 2021 12:52 PM Pharmacy - [place] Infusion Order [facility] Dec 06, 2021 03:24 PM Pharmacy - [place] [facility] Dec 06, 2021 03:40 PM Pharmacy - [place] [facility] Dec 15, 2021 08:41 AM Consult Order SPEECH PATHOLOGY [place] OUTPATIENT Cons [facility] Industrial Maintenance Technician's Choice Jan 15, 2022 10:08 PM Consult Order [facility] CARE-PALLIATIVE CARE Cons Industrial Maintenance Technician's Choice Lab Results: +/- 30 days [...] Reference Range Comment Dec 15, 2021 [place] P4 GLU,BUN,CREAT,LYTES,CA Speci men Type: PLASMA 06:43 AM [facility] Comment: Tests performed on [email or web address] (405) SN:[id number] Ordering Provid er: ISATU TODD Report Released Date/Time: Dec 11, 2021 07:42 AM Reporting Lab: [place] [facility] [address] [facility] [address] Performing Lab: [place] [facility] [address] [facility] [address] UREA NITROGEN 9 7-25 SODIUM 137 135-145 POTASSIUM 3.8 3.5-5.0 CHLORIDE 105 100-110 CARBON DIOXIDE 26 20-30 ANION GAP 6 4-16 GLUCOSE 102 H 65-100 CREATININE 0.64 0.5-1.5 CALCIUM 8.1 L 8.5-10.5 eGFR(CKD-EPI 2020) >90.0 >60 Dec 15, 2021 06:43 AM [place] [facility] CBC PROFILE Sp ecimen Type: BLOOD No comment enter ed. Ordering Provid er: ISATU TODD Report Released Date/Time: Dec 10, 2021 07:22 AM Reporting Lab: [facility] [address] [facility] [address] Performing Lab: [facility] [address] [facility] [address] WBC 5.7 4.5-11.0 RBC 4.22 L 4.23-5.66 [...] ABSOLUTE NRBC 0.00 0-0 Dec 14, 2021 [facility] CYTOGENETIC Specimen Type: ESOPHAGUS 02:59 PM [facility] FISH([facility] Comment: ~For T est: CYTOGENETIC FISH([facility] ~FISH HER 2 NUE, FFPE See full report in [place] Image display viewer/tab#LAB-Reference Ordering Provid er: NIURKA MILLER Report Released Date/Time: Dec 21, 2021 12:11 PM [facility] [address] [facility] [address] Performing Lab: [facility] CYTOGENETIC FISH([facility] comment Dec 14, 2021 [facility] P4 GLU,BUN,CREAT,LYTES,CA Speci men Type: PLASMA 06:27 AM [facility] Comment: Tests performed on [email or web address] (405) SN:[id number] Ordering Provid er: ISATU TODD Report Released Date/Time: Dec 11, 2021 07:42 AM Reporting Lab: [facility] [address] [facility] [address] Performing Lab: [facility] [address] [facility] [address] UREA NITROGEN 10 7-25 SODIUM 137 135-145 [...] Reporting Lab: [facility] [address] [facility] [address] Performing Lab: [facility] [address] [facility] [address] WBC 6.0 4.5-11.0 RBC 4.29 4.23-5.66 HGB [...] NRBC 0.00 0-0 Dec 13, 2021 [place] P4 GLU,BUN,CREAT,LYTES,CA Speci men Type: PLASMA 06:34 AM [facility] Comment: Tests performed on [email or web address] (405) SN:[id number] Ordering Provid er: ISATU TODD Report Released Date/Time: Dec 11, 2021 07:42 AM Reporting Lab: [facility] [address] [facility] [address] Performing Lab: [facility] [address] [facility] [address] UREA NITROGEN 12 7-25 SODIUM 136 135-145 POTASSIUM 3.9 3.5-5.0 CHLORIDE 105 100-110 CARBON DIOXIDE 24 20-30 ANION GAP 7 4-16 GLUCOSE 102 H 65-100 CREATININE 0.66 0.5-1.5 CALCIUM 8.3 L 8.5-10.5 eGFR(CKD-EPI 2020) >90.0 >60 Dec 13, 2021 06:[address] [facility]FILE Sp ecimen Type: BLOOD No comment enter ed. Ordering Provid er: ISATU TODD Report Released Date/Time: Dec 10, 2021 07:22 AM Reporting Lab: [facility] [address] [facility] [address] Performing Lab: [facility] [address] [facility] [address] WBC 5.6 4.5-11.0 RBC 4.28 4.23-5.66 HGB [...] NRBC 0.00 0-0 Dec 12, 2021 [facility] P4 GLU,BUN,CREAT,LYTES,CA Speci men Type: PLASMA 06:21 AM [facility] Comment: Tests performed on [email or web address] (405) SN:[id number] Ordering Provid er: ISATU TODD Report Released Date/Time: Dec 11, 2021 07:42 AM Reporting Lab: [facility] [address] [facility] [address] Performing Lab: [facility] [address] [facility] [address] UREA NITROGEN 11 7-25 SODIUM 139 135-145 POTASSIUM 4.1 3.5-5.0 CHLORIDE 107 100-110 CARBON DIOXIDE 24 20-30 ANION GAP 8 4-16 GLUCOSE 110 H 65-100 CREATININE 0.70 0.5-1.5 CALCIUM 8.3 L 8.5-10.5 eGFR(CKD-EPI 2020) >90.0 >60 Dec 12, 2021 [facility]:[address] [facility] Sp ecimen Type: BLOOD No comment enter ed. Ordering Provid er: ISATU TODD Report Released Date/Time: Dec 10, 2021 07:22 AM Reporting Lab: [facility] [address] [facility] [address] Performing Lab: [facility] [address] [facility] [address] WBC 5.5 4.5-11.0 RBC 4.37 4.23-5.66 HGB [...] PLASMA Comment: Testin g Performed on Pham [employer] (405) SN:[id number] Ordering Provid er: ISATU TODD Report Released Date/Time: Dec 12, 2021 08:24 AM Reporting Lab: [place] [facility] [address] [facility] [address] Performing Lab: [place] [facility] [facility] [address] [facility] [address] MAGNESIUM 1.8 1.6-2.6 Dec 12, 2021 06:00 AM [place] [facility] PHOSPHORUS Sp ecimen Type: PLASMA Comment: Testin g Performed on Pham Comber Operator (405) SN:[id number] Ordering Provid er: ISATU TODD Report Released Date/Time: Dec 12, 2021 08:24 AM Reporting Lab: [place] [facility] [address] [facility] [address] Performing Lab: [place] [facility] [address] [facility] [address] PHOSPHORUS 3.1 2.5-5.0 Dec 11, 2021 06:15 AM [place] [facility] [facility] ELECTROLYTES Sp ecimen Type: PLASMA Comment: Tests performed on [email or web address] (405) SN:[id number] Ordering Provid er: ISATU TODD Report Released Date/Time: Dec 10, 2021 07:22 AM Reporting Lab: [place] [facility] [address] [facility] [address] Performing Lab: [place] [facility] [address] [facility] [address] SODIUM 137 135-145 POTASSIUM 4.3 3.5-5.0 CHLORIDE 108 100-110 CARBON DIOXIDE 20 20-30 ANION GAP 9 4-16 Dec 11, 2021 06:15 AM [facility] CBC PROFILE Sp ecimen Type: BLOOD Comment: Result s checked Ordering Provid er: ISATU TODD Report Released Date/Time: Dec 10, 2021 07:22 AM Reporting Lab: [place] [facility] [address] [facility] [address] Performing Lab: [place] [facility] [address] [facility] [address] WBC 5.8 4.5-11.0 RBC 4.37 4.23-5.66 HGB [...] ecimen Type: PLASMA Comment: Tests performed on [email or web address] (405) SN:[id number] Results checked Ordering Provid er: ISATU TODD Report Released Date/Time: Dec 11, 2021 07:44 AM Reporting Lab: [place] [facility] [address] [place] [facility] [place] [facility] [place] [address] Performing Lab: [place] [facility] [address] [place] [facility] [place] [place] [address] PHOSPHORUS 3.0 2.5-5.0 Dec 10, 2021 08:05 AM [place] [facility] MAGNESIUM Sp ecimen Type: PLASMA Comment: Added by Ligia on Dec 10, 2021@08:31 Tests performed on [email or web address] (405) SN:[id number] Ordering Provid er: ISATU TODD Report Released Date/Time: Dec 10, 2021 07:22 AM Reporting Lab: [place] [facility] [address] [place] [facility] [place] [place] [address] Performing Lab: [place] [facility] [address] [place] [facility] [place] [place] [address] MAGNESIUM 1.7 1.6-2.6 Dec 10, 2021 08:05 AM [place] [facility] PHOSPHORUS Sp ecimen Type: PLASMA Comment: Added by Ligia on Dec 10, 2021@08:31 Tests performed on [email or web address] (405) SN:[id number] Ordering Provid er: ISATU TODD Report Released Date/Time: Dec 10, 2021 07:22 AM Reporting Lab: [place] [facility] [address] [place] [facility] [place] [facility] [place] [address] Performing Lab: [place] [facility] [address] [place] [facility] [place] [place] [address] PHOSPHORUS 1.8 L 2.5-5.0 Dec 10, 2021 08:05 AM [place] UREA NITROGEN Specimen Type: PLASMA [facility] Comment: [place] [id number] on Dec 10, 2021@08:31 Tests performed on [email or web address] (405) SN:[id number] Ordering Provid er: ISATU TODD Report Released Date/Time: Dec 10, 2021 07:22 AM Reporting Lab: [place] [facility] [address] [facility] [address] Performing Lab: [place] [facility] [address] [facility] [address] UREA NITROGEN 8 7-25 Dec 10, 2021 08:05 AM [place] [facility] CALCIUM Sp ecimen Type: PLASMA Comment: [place] [id number] on Dec 10, 2021@08:31 Tests performed on Pham [employer] A/S (405) SN:[id number] Ordering Provid er: ISATU TODD Report Released Date/Time: Dec 10, 2021 07:22 AM Reporting Lab: [place] [facility] [address] [facility] [address] Performing Lab: [place] [facility] [address] [facility] [address] CALCIUM 8.3 L 8.5-10.5 Dec 10, 2021 08:05 AM [place] [facility] ELECTROLYTES Sp ecimen Type: PLASMA Comment: [place] [id number] on Dec 10, 2021@08:31 Tests performed on [employer] (405) SN:[id number] Ordering Provid er: ISATU TODD Report Released Date/Time: Dec 10, 2021 07:22 AM Reporting Lab: [place] [facility] [address] [facility] [address] Performing Lab: [place] [facility] [address] [facility] [address] SODIUM 139 135-145 POTASSIUM 3.7 3.5-5.0 CHLORIDE 107 100-110 CARBON DIOXIDE 24 20-30 ANION GAP 8 4-16 Dec 10, 2021 08:05 [place] CREATININE WITH eGFR Specime n Type: PLASMA AM [facility] PANEL [place]: [place] [id number] on Dec 10, 2021@08:31 Tests performed on [employer] (405) SN:[id number] Ordering Provid er: ISATU TODD Report Released Date/Time: Dec 10, 2021 07:22 AM Reporting Lab: [place] [facility] [address] [facility] [address] Performing Lab: [place] [facility] [address] [facility] [address] CREATININE 0.78 0.5-1.5 eGFR(CKD-EPI 2020) >90.0 >60 Dec 10, 2021 08:05 AM [place] [facility] GLUCOSE Sp ecimen Type: PLASMA Comment: [place] [id number] on Dec 10, 2021@08:31 Tests performed on [email or web address] (405) SN:[id number] Ordering Provid er: ISATU TODD Report Released Date/Time: Dec 10, 2021 07:22 AM Reporting Lab: [place] [facility] [address] [facility] [address] Performing Lab: [place] [facility] [address] [facility] [address] GLUCOSE 144 H 65-100 Dec 10, 2021 08:05 AM [place] [facility] CBC PROFILE Sp ecimen Type: BLOOD No comment enter ed. Ordering Provid er: ISATU TODD Report Released Date/Time: Dec 10, 2021 07:22 AM Reporting Lab: [place] [facility] [address] [facility] [address] Performing Lab: [place] [facility] [address] [facility] [address] WBC 7.0 4.5-11.0 RBC 4.54 4.23-5.66 HGB [...] 0.00 0-0 Dec 09, 2021 06:46 AM [facility] MAGNESIUM Sp ecimen Type: PLASMA Comment: Tests performed on [email or web address] (405) SN:[id number] Ordering Provid er: ISATU TODD Report Released Date/Time: Dec 08, 2021 10:23 AM Reporting Lab: [facility] [address] [facility] [address] Performing Lab: [facility] [address] [facility] [address] MAGNESIUM 1.6 1.6-2.6 Dec 09, 2021 [place] P4 GLU,BUN,CREAT,LYTES,CA Speci men Type: PLASMA 06:46 AM [facility] Comment: Tests performed on [email or web address] (405) SN:[id number] Ordering Provid er: ISATU TODD Report Released Date/Time: Dec 08, 2021 05:00 PM Reporting Lab: [facility] [address] [facility] [address] Performing Lab: [facility] [address] [facility] [address] UREA NITROGEN 6 L 7-25 SODIUM 134 L 135-145 POTASSIUM 3.7 3.5-5.0 CHLORIDE 103 100-110 CARBON DIOXIDE 23 20-30 ANION GAP 8 4-16 GLUCOSE 112 H 65-100 CREATININE 0.70 0.5-1.5 CALCIUM 8.1 L 8.5-10.5 eGFR(CKD-EPI 2020) >90.0 >60 Dec 09, 2021 06:46 AM [place] [facility] CBC PROFILE Sp ecimen Type: BLOOD No comment enter ed. Ordering Provid er: ISATU TODD Report Released Date/Time: Dec 08, 2021 05:00 PM Reporting Lab: [facility] [address] [facility] [address] Performing Lab: [facility] [address] [facility] [address] WBC 7.1 4.5-11.0 RBC 4.40 4.23-5.66 HGB [...] 0.00 0-0 Dec 08, 2021 06:39 AM [facility] MAGNESIUM Sp ecimen Type: PLASMA Comment: Testin g Performed on [employer] A/S (405) SN:[id number] Ordering Provid er: ISATU TODD Report Released Date/Time: Dec 07, 2021 10:32 AM Reporting Lab: [facility] [address] [facility] [address] Performing Lab: [facility] [address] [facility] [address] MAGNESIUM 1.5 L 1.6-2.6 Dec 08, 2021 [facility] P[facility] GLU,BUN,CREAT,LYTES,CA Speci men Type: PLASMA 06:39 AM [facility] Comment: Testin g Performed on [email or web address] (405) SN:[id number] Ordering Provid er: ISATU TODD Report Released Date/Time: Dec 07, 2021 10:32 AM Reporting Lab: [facility] [address] [facility] [address] Performing Lab: [facility] [address] [facility] [address] UREA NITROGEN 6 L 7-25 SODIUM 136 135-145 POTASSIUM 3.3 L 3.5-5.0 CHLORIDE 104 100-110 CARBON DIOXIDE 22 20-30 ANION GAP 10 4-16 GLUCOSE 133 H 65-100 CREATININE 0.76 0.5-1.5 CALCIUM 8.4 L 8.5-10.5 eGFR(CKD-EPI 2020) >90.0 >60 Dec 08, 2021 06:[address] [facility] CBC PROFILE Sp ecimen Type: BLOOD No comment enter ed. Ordering Provid er: ISATU TODD Report Released Date/Time: Dec 07, 2021 10:32 AM Reporting Lab: [facility] [address] [facility] [address] Performing Lab: [facility] [address] [facility] [address] WBC 8.4 4.5-11.0 RBC 4.75 4.23-5.66 HGB [...] ABSOLUTE NRBC 0.00 0-0 Dec 07, 2021 [facility] P4 GLU,BUN,CREAT,LYTES,CA Speci men Type: PLASMA 06:42 AM [facility] Comment: Tests performed on Pham [employer] (405) SN:[id number] Ordering Provid er: PORFIRIO WALTERS Report Released Date/Time: Dec 06, 2021 06:57 PM Reporting Lab: [place] [facility] [address] [facility] [address] Performing Lab: [place] [facility] [address] [facility] [address] UREA NITROGEN 9 7-25 SODIUM 135 135-145 POTASSIUM 3.5 3.5-5.0 CHLORIDE 103 100-110 CARBON DIOXIDE 22 20-30 ANION GAP 10 4-16 GLUCOSE 92 65-100 CREATININE 0.73 0.5-1.5 CALCIUM 8.0 L 8.5-10.5 eGFR(CKD-EPI 2020) >90.0 >60 Dec 07, 2021 06:42 [place] LIVER PROFILE Specimen Typ e: PLASMA AM [facility] Comment: Tests performed on Pham [employer] Operator (405) SN:[id number] Ordering Provid er: PORFIRIO WALTERS Report Released Date/Time: Dec 06, 2021 06:57 PM Reporting Lab: [facility] [address] [facility] [address] Performing Lab: [facility] [address] [facility] [address] PROTEIN, TOTAL 5.7 L 6.0-8.5 ALBUMIN 2.4 L 3.2-5.0 BILIRUBIN, TOTAL 0.4 0.2-1.2 ALKALINE PHOSPHATASE 109 40-150 ALT(SGPT) 10 7-52 AST(SGOT) 15 5-34 FIB-4 SCORE 1.92 <2.67 Dec 07, 2021 06:42 AM [place] CBC PROFILE Specimen Type: BLOOD [facility] No comment enter ed. Ordering Provid er: PORFIRIO WALTERS Report Released Date/Time: Dec 06, 2021 06:57 PM Reporting Lab: [place] [facility] [address] [facility] [address] Performing Lab: [place] [facility] [address] [facility] [address] WBC 5.7 4.5-11.0 RBC 4.15 L 4.23-5.66 [...] [facility] %) AUTOMATED Comment: Tests performed on [email or web address] (405) SN:[id number] Ordering Provid er: ISATU TODD Report Released Date/Time: Dec 07, 2021 10:28 AM Reporting Lab: [place] [facility] [address] [facility] [address] Performing Lab: [place] [facility] [address] [facility] [address] RETICULOCYTES (%) AUTOMATED 1.23 0. 6-2.0 RETICULOCYTES (ABS) AUTOMATED 0.052 0.030-0.090 Dec 06, 2021 09:45 [place] MRSA SURVL NARES Specimen Ty pe: NARES PM [facility] DNA No comment enter ed. Ordering Provid er: ALVARO VARGHESE Report Released Date/Time: Dec 07, 2021 02:20 AM Reporting Lab: [place] [facility] [address] [facility] [address] Performing Lab: [place] [facility] [address] [facility] [address] MRSA SURVL NARES DNA NEGATIVE NEGATIVE Dec 06, 2021 06:00 [facility] URINALYSIS W/REFLEX TO Speci men Type: URINE PM [facility] CULTURE No comment enter ed. Ordering Provid er: JELANI SÁNCHEZ Report Released Date/Time: Dec 06, 2021 11:57 AM Reporting Lab: [facility] [address] [facility] [address] Performing Lab: [facility] [address] [facility] [address] URINE COLOR Arlin YELLOW SPECIFIC GRAVITY 1.029 [...] Tom WHITE SARS-COV-2 Specimen Type: NASOPHARYNX 21, VARIANT Comment: https://www.cdc.gov/coronavirus/2019-ncov/cases-updates/variant- surveillance/variant-info.html The [employer] SARS CoV 2 [employer] Assay-GX is a next-generation sequencing (NGS) assa 2021 [facility] SEQUENCING y that determine s the complete genome sequence of the SARS-CoV-2 virus. The assay contains variant-tolerant primers to broaden and improve the coverage for variant detection and increase the sensitivity 12:00 [facility] PNL(WH) of the panel to enable detection from lower viral titer samples. The assay is run on the [employer] Sequencer, which performs automated library preparation, sequencing, analysis, and reporting. PM The sequence an alysis includes determination of viral phylogenetic lineage by comparison to the reference strain Wuhan-Hu-1, GenBank: [id number]. Sequence determination may not be possible owing [...] Dec 06, 2021 01:13 PM Reporting Lab: [facility] [address] [facility] [address] Performing Lab: [facility] [address] [facility] [address] SARS-CoV-2 CLADE() 22C (OMICRON) SARS-CoV-2 LINEAGE() BA.2.12.1 Dec 06, 2021 12:00 [facility] COVID-19 AG SCREEN Specimen Type: NASAL CAVITY PM [facility] PANEL BINAX(405) Comment: Testi ng Performed By: Mike Briscoe Ordering Provid er: JELANI SÁNCHEZ Report Released Date/Time: Dec 08, 2021 08:23 AM Reporting Lab: [facility] [address] [place] [facility] [place] [address] Performing Lab: [facility] [address] [place] [facility] [place] [place] [address] COVID-19 AG SCRN(wrj BINAX) POSITIVE HH NE G Dec 06, 2021 12:00 PM [facility] TROPONIN II Sp ecimen Type: PLASMA Comment: Tests performed on [employer] (405) SN:[id number] Ordering Provid er: JELANI SÁNCHEZ Report Released Date/Time: Dec 06, 2021 11:57 AM Reporting Lab: [facility] [address] [place] [facility] [place] [address] Performing Lab: [facility] [address] [place] [facility] [place] [place] [address] TROPONIN II 0.03 0.00-0.29 Dec 06, 2021 12:00 PM [place] [facility] LIVER PROFILE Sp ecimen Type: PLASMA Comment: Testin g Performed on [employer] (405) SN:[id number] Ordering Provid er: JELANI SÁNCHEZ Report Released Date/Time: Dec 06, 2021 11:57 AM Reporting Lab: [facility] [address] [facility] [address] Performing Lab: [facility] [address] [facility] [address] PROTEIN, TOTAL 6.6 6.0-8.5 ALBUMIN 2.8 L 3.2-5.0 BILIRUBIN, TOTAL 0.6 0.2-1.2 ALKALINE PHOSPHATASE 134 40-150 ALT(SGPT) 13 7-52 AST(SGOT) 18 5-34 FIB-4 SCORE 1.94 <2.67 Dec 06, [facility],BUN,CREAT,LYTES,CA Speci men Type: PLASMA 12:00 PM [facility] Comment: Testin g Performed on [employer] (405) [id number] Ordering Provid er: JELANI SÁNCHEZ Report Released Date/Time: Dec 06, 2021 11:57 AM Reporting Lab: [facility] [address] [facility] [address] Performing Lab: [facility] [address] [facility] [address] UREA NITROGEN 13 7-25 SODIUM 138 135-145 POTASSIUM 3.8 3.5-5.0 CHLORIDE 103 100-110 CARBON DIOXIDE 23 20-30 ANION GAP 12 4-16 GLUCOSE 105 H 65-100 CREATININE 0.90 0.5-1.5 CALCIUM 8.7 8.5-10.5 eGFR(CKD-EPI 2020) >90.0 >60 Dec 06, 2021 [facility] COVID-[facility]+FLU/RSV DIAGNOSTIC Spe cimen Type: NASOPHARYNX 12:00 PM [facility] PANEL(405) Comment: Tests performed on [employer] Genexpert (405) Critical results called to and read back by: ALESHIA WILKINSON RN 12/06/21 @ 1312 Ordering Provid er: JELANI SÁNCHEZ Report Released Date/Time: Dec 06, 2021 11:57 AM Reporting Lab: [facility] [address] [facility] [address] Performing Lab: [facility] [address] [facility] FLU A(PCR) NEGATIVE NEGATIVE FLU B(PCR) NEGATIVE NEGATIVE RSV(PCR) NEGATIVE NEGATIVE COVID-19([id number]) DETECTED HH NO T DETECTED Dec 06, 2021 12:00 PM [facility] BNP(P) Sp ecimen Type: PLASMA Comment: Tests performed on [email or web address] (405) SN:[id number] Ordering Provid er: JELANI SÁNCHEZ Report Released Date/Time: Dec 06, 2021 11:57 AM Reporting Lab: [facility] [address] [facility] Performing Lab: [facility] [address] [facility] BNP(P) 224.8 H 10-100 Dec 06, 2021 12:00 PM [facility] CBC PROFILE Sp ecimen Type: BLOOD No comment enter ed. Ordering Provid er: JELANI SÁNCHEZ Report Released Date/Time: Dec 06, 2021 11:57 AM Reporting Lab: [facility] [address] [facility] [address] [facility] WBC 7.2 4.5-11.0 RBC 4.86 4.23-5.66 HGB [...] 100 119/74 16 /min 95 % 0 [place] 2021 11:30 /min mm[Hg] [place] PM [facility] Dec 08, 99.2 F 94 126/76 18 /min 98 % 0 [place] 2021 02:15 /min mm[Hg] R[place] PM [facility] Dec 08, 0 [place] 2021 10:37 [place] AM [facility] Dec 08, 97.5 F 106 122/76 16 /min 97 % 0 [place] 2021 05:55 /min mm[Hg] [facility] AM [facility] Dec 08, 0 [place] 2021 03:52 [place] AM [facility] Social History: Smoking Status (Most current) and Tobacco Use (All prior to encounter date) This section includes the most current, and the historical, smoking and tobacco-related health factors from the [place] facility where the Encounter took place.Current Smoking Status This section includes the most current smoking, or tobacco-related health factor, from the [place] facility where the Encounter took place. Date/Time Current Smoking Status Comment Facility Dec 06, 2021 11:40 AM QUIT TOBACCO USE > [address] [facility] Tobacco Use History This section includes a history of the smoking, or tobacco- related health factors, that were collected on or before the date of the Encounter. The data comes from the [place] facility where the Encounter took place. Date/Time Smoking Status/Tobacco Use Comment [facility] Apr 01, 2020 01:16 PM QUIT TOBACCO USE 1-[address] [facility] Mar 24, 2020 03:00 PM QUIT TOBACCO USE 1-[address] [facility] Feb 21, 2019 04:11 PM QUIT TOBACCO USE 1-7 YEARS AGO [facility] Feb 20, 2019 03:38 PM QUIT TOBACCO USE 1-7 YEARS AGO [facility] Feb 03, 2019 09:50 AM QUIT TOBACCO USE 1-7 YEARS AGO [facility] May 25, 2016 11:53 PM QUIT TOBACCO USE IN PAST YEAR [facility] DO[facility] May 23, 2016 06:57 PM QUIT TOBACCO USE > 7 YEARS AGO [facility] May 19, 2016 03:55 PM QUIT TOBACCO USE IN PAST YEAR [facility] DO[facility] May 19, 2016 10:29 AM QUIT TOBACCO USE 1-7 YEARS AGO [facility] May 01, 2016 07:26 PM QUIT TOBACCO USE IN PAST YEAR [facility] May 01, 2016 03:11 PM QUIT TOBACCO USE IN PAST YEAR [facility] May 01, 2016 11:19 AM QUIT TOBACCO USE IN PAST YEAR [facility] DOYLE [facility] Mar 16, 2016 12:50 PM V1-PT DECLINES REF TO TOBACCO [facility] DOYLE [facility] CESS PRGM Mar 16, 2016 12:50 PM V1-PT THINKING ABOUT QUIT [facility] DOYLE [facility] TOBACCO USE Aug 12, 2015 08:48 AM CURRENT SMOKER [facility] Yates [facility] Radiology Reports: +/- 30 days of the [...] Encounter. The data comes from all [facility] facilities. Date/Time Radiology Report Provider Source Dec 13, 2021 12:57 PM MRI ABDOMEN W/WO CONTRAST: MARYELLEN LONG LUCAS LARES N [id number] -1950 [facility] Exm Date: DEC 13, 2021@12:57 Req Phys: ISATU TODD Loc: OP Unknown/0 12-15-2021@13:20 Img Loc: MRI IMAGING (OOS) Service: [facility] (Case [id number] COMPLETE) MRI ABDOMEN W/WO CONTRAST (M MD Detailed) CPT:43942 Reason for Study: further characterization of a [...] new lyphadenopathy REQUESTING MD: Isatu Todd PAGER: [phone] PHONE: [phone] Weight: 232.2 lb [105.32 kg] (12/12/2021 05:00) [...] patient will need to arrange for a distribution driver to take him/her home after the [...] 15, 2021 Date Verified: DEC 15, 2021 Chief Cruiser E-Sig:/ES/MARYELLEN LONG Report: MRI ABDOMEN W/WO CONTRAST [...] MALIGNANCY Primary Interpreting Staff: Staff AMELIA THOMAS (Chief Cruiser) /Dec 10, 2021 09:[address] ABDOMEN & PELVIS: RADIOLOGY,OUTSIDE [facility] JCT LUCAS MEEK N [id number] -1950 [facility] Exm Date: DEC 10, 2021@09:30 Req Phys: ISATU TODD E Josseline Loc: 1S MED/12-10@10:57 Img Loc: CT SCAN (OOS) Service: [facility] (Case [id number] COMPLETE) CT ABD & PELVIS WITHOUT CONT RAST (CT Detailed) CPT:39549 Reason for Study: 71 yo male with [...] INDEX - NO HEIGHTS FOUND Pager number: [phone] STAT orders MUST be call ed to RADIOLOGY [phone] to speak to the appropriate operator technician. Report Status: Verified Date Reported: DEC 10, 2021 Date Verified: DEC 10, 2021 Chief Cruiser E-Sig: Report: EXAM: CT abdomen and pelvis [...] ph nodes. READING PHYSICIAN: Ramone Munoz D.O. [phone] 12/10/2021 10:55 EDT [facility] Register My Info Teleradiology Program [phone] (For Medical Practitioner Use Only ) [address] [facility], [address], [address] [place] [address] Attention Patients / Veterans: If you have ques tions or concerns about these test results, please contact your o rdering provider or primary care team. Primary Diagnostic Code: SIGNIFICANT ABNORMALIT Y, ATTN NEEDED Primary Interpreting Staff: RADIOLOGY,OUTSIDE SERVICE, Staff Physician / Dec 09, 2021 07:34 AM BASW (MODIFIED): JESSIE CHENEY [facility] ER T LUCAS MEEK N [id number] -1950 [facility] Exm Date: DEC 09, 2021@07:34 Req Phys: ISATU TODD Loc: 1S MED/12-09@11:26 Img Loc: XRAY (OOS) Service: [facility] (Case [id number] COMPLETE) BASW (MODIFIED) (EUNICE stephenson) CPT:73121 Contrast Media : Barium Reason for Study: dysphagia ?esophageal spasm Clinical History: Report Status: Verified Date Reported: DEC 09, 2021 Date Verified: DEC 09, 2021 Chief Cruiser E-Sig:/ES/JESSIE CHENEY Report: BASPrincess (MODIFIED) , 12/09/2021 [...] REQUIRED Primary Interpreting Staff: JESSIE CHENEY, RADIOLOGIST (Chief Cruiser) /TLC Dec 06, 2021 12:[address] CHEST (INCLUDES ADRENALS): [facility] N [id number] -1950 M [facility] Exm Date: DEC 06, 2021@12:59 Req Phys: JELANI SÁNCHEZ Loc: [facility] ED DAYS M 1RD (Req'g Loc) Img Loc: CT SCAN (OOS) Service: Unknown (Case [id number] COMPLETE) CT THORAX W/O CONT (CT Detai led) CPT:18824 Reason for Study: Opacification right chest Clinical History: No contrast allergy BUN: 13 (12/06/21 12:00) CREATI: 0.90 (12/06/21 12:00) eGFR 05/16/21 09:43 52 L Weight: 232.6 lb [105.51 kg] (12/06/2021 11:40) BODY MASS INDEX - NO HEIGHTS FOUND Pager number: [phone] STAT orders MUST be called t o RADIOLOGY [phone] to speak to the appropriate operator technician. Indications - Other: Opacification right chest, covid positive, lung cancer histo Report Status: Verified Date Reported: DEC 06, 2021 Date Verified: DEC 06, 2021 Chief Cruiser E-Sig:/ES/JESSIE CHENEY Report: CT THORAX W/O CONT [...] REQUIRED Primary Interpreting Staff: JESSIE CHENEY, RADIOLOGIST (Chief Cruiser) Primary Interpreting Resident: PRINCE CHAMPION, Resident /BR Dec 06, 2021 11:58 AM CHEST SINGLE VIEW: JESSIE CHENEY LUCAS MEEK Lei [id number] -1950 M [facility] Exm Date: DEC 06, 2021@11:58 Req Phys: JELANI SÁNCHEZ Pat Loc: [facility] ED DAYS M 1RD (Req'g Loc) Img Loc: XRAY (OOS) Service: Unknown (Case [id number] COMPLETE) CHEST SINGLE VIEW (RAD Detai led) CPT:89227 Proc Modifiers : PORTABLE EXAM Reason for Study: SOB, home covid test positive Clinical History: Report Status: Verified Date Reported: DEC 06, 2021 Date Verified: DEC 06, 2021 Chief Cruiser E-Sig:/ES/JESSIE CHENEY Report: Exam type: Chest x-ray [...] REQUIRED Primary Interpreting Staff: JESSIE CHENEY, RADIOLOGIST (Chief Cruiser) /TLC Pathology Reports: +/- 30 days of [...] the Encounter. The data comes from all [place] treatment facilities. Date/Time Pathology Report Provider Source Jan 03, 2022 10:28 AM LR SURGICAL PATHOLOGY REPORT: STEFANY MILLER LOCAL TITLE: LR SURGICAL PATHOLOGY REPORT [facility] STANDARD TITLE: PATHOLOGY REPORT DATE OF NOTE: JAN 03, 2022@10:28:01 ENTRY DATE: JAN 03, 2022@10:28:01 AUTHOR: NIURKA MILLERIGNER: URGENCY: STATUS: COMPLETED $APHDR Reporting Lab: [facility] [CLIA# [id number]] [address] [place] [address] - - - - - - [...] automatically d ocumented from SURGERY package case #[id number] Field (#32) PRINCIPAL PRE-OP DIAGNOSIS, (#.72) OTHER [...] automatically d ocumented from SURGERY package case #[id number] Field (#34) PRINCIPAL POST-OP DIAG, (#.74) OTHER [...] Label: Lucas Meek Paperwork: Lucas Meek Cassette: [id number];..;KALYANI;.;405;[id number] Specimen is labeled: ES bx Received in formalin are several pieces of pale boyd and brown tissue, 1.2 x 0.7 cm in aggregate. Submitted entirely in 1 cassette [id number];..;KALYANI;.;405;[id number] SAW 12/15/2021 Microscopic exam: *+* MODIFIED REPORT *+* (Last modified: JAN 03, 2022@09:30:20 typed by NIURKA WADDELL) DIAGNOSIS: A. 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 Kendell long. TIARA Coombs was notified on 12/21/21. Modified on 01/03/22 to include report from [facility] stating that tumor is NEGATIVE for her2/ matheus amplification. The attending pathologist who signature mansoor ears on this report has reviewed all diagnostic slides and has edited t he gross and/or microscopic portion of this report in rendering the final pathologic diagnosis. [address] [address] CPT: 42574 /emely/ NIURKA Yeung MD Signed Jan 03, 2022@10:28 Performing Laboratory: Surgical Pathology Report Performed By: CAREY DOYLE [place] [facility] [CLIA# [id number]] [address] [place] [address] $FTR - - - - - [...] - - LUCAS MEEK STANDARD FORM 515 ID:[id number] SEX:M :1950 AGE: 71 LOC: SDM END PCP: Isatu Todd /emely/ NIURKA Yeung MD Signed: 01/03/2022 10:28 Dec 21, 2021 11:46 AM LR SURGICAL PATHOLOGY REPORT: STEFANY MILLER [place] LOCAL TITLE: LR SURGICAL PATHOLOGY REPORT [facility] STANDARD TITLE: PATHOLOGY REPORT DATE OF NOTE: DEC 21, 2021@11:46:59 ENTRY DATE: DEC 21, 2021@11:46:59 AUTHOR: NIURKA MILLER EXP COSIGNER: URGENCY: STATUS: COMPLETED $APHDR Reporting Lab: [facility] [CLIA# [id number]] [address] [place] [address] - - - - - - [...] automatically d ocumented from SURGERY package case #[id number] Field (#32) PRINCIPAL PRE-OP DIAGNOSIS, (#.72) OTHER [...] automatically d ocumented from SURGERY package case #[id number] Field (#34) PRINCIPAL POST-OP DIAG, (#.74) OTHER [...] Label: Lucas Meek Paperwork: Lucas Meek Cassette: [id number];..;KALYANI;.;405;[id number] Specimen is labeled: ES bx Received in formalin are several pieces of pale boyd and brown tissue, 1.2 x 0.7 cm in aggregate. Submitted entirely in 1 cassette [id number];..;KALYANI;.;405;[id number] SAW 12/15/2021 Microscopic exam: DIAGNOSIS: A. 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 Kendell long. TIARA Coombs was notified on 12/21/21. The attending pathologist who signature mansoor ears on this report has reviewed all diagnostic slides and has edited t he gross and/or microscopic portion of this report in rendering the final pathologic diagnosis. [address] [address] CPT: 60461 /emely/ NIURKA Yeung MD Signed Dec 21, 2021@11:46 Performing Laboratory: Surgical Pathology Report Performed By: CAREY MONTOYA [facility] [CLIA# [id number]] [address] [place] [address] $FTR - - - - - [...] - - LUCAS MEEK STANDARD FORM 515 ID:[id number] SEX:M :1950 AGE: 71 LOC: SDM END PCP: Isatu Todd /charmaine Yeung MD Signed: 12/21/2021 11:46 Dec 06, 2021 03:30 PM LR MICROBIOLOGY REPORT: [facility] Reporting Lab: [facility] [CLIA# [id number]] [address] [id number] Accession [UID]: [id number] [[id number]] Receiv ed: Dec 06, 2021@16:14 Collection sample: BLOOD CUL T BOTTLE(NIRMAL/AERO)Collection date: Dec 06, 2021 15:30 Site/Specimen: BLOOD Provider: JELANI SÁNCHEZ Comment on specimen: LAC Test(s) ordered: BLOOD CULTURE ANAEROBI C....... completed: Dec 12, 2021 06:18 * BACTERIOLOGY FINAL REPORT => Dec 12, 2021 06:1 8 TECH CODE: [id number] Bacteriology Remark(s): NO GROWTH IN 5 DAYS =--=--=--=--=--=--=--=--=--=--=--=--=--= --=--=--=--=--=--=--=--=--=--=--=--=-- Performing Laboratory: Bacteriology Report Performed By: [facility] [CLIA# [id number]] [address] [address] Dec 06, 2021 03:30 PM LR MICROBIOLOGY REPORT: [facility] Reporting Lab: [facility] [CLIA# [id number]] [address] [id number] Accession [UID]: [id number] [[id number]] Receiv ed: Dec 06, 2021@16:14 Collection sample: BLOOD CUL T BOTTLE(NIRMAL/AERO)Collection date: Dec 06, 2021 15:30 Site/Specimen: BLOOD Provider: JELANI SÁNCHEZ Comment on specimen: LAC Test(s) ordered: BLOOD CULTURE AEROBIC. ........ completed: Dec 12, 2021 06:17 * BACTERIOLOGY FINAL REPORT => Dec 12, 2021 06:1 7 TECH CODE: [id number] Bacteriology Remark(s): NO GROWTH IN 5 DAYS =--=--=--=--=--=--=--=--=--=--=--=--=--= --=--=--=--=--=--=--=--=--=--=--=--=-- Performing Laboratory: Bacteriology Report Performed By: CAREY MONTOYA [facility] [CLIA# [id number]] [address] [place] [place] [address] Encounter Notes: All associated encounter notes This section contains the clinical notes associated to the Encounter. Date/Time Encounter Note(s) Provider Source Dec 08, 2021 01:06 PM SPEECH PATHOLOGY CONSULT: NAI HERNANDEZ LOCAL TITLE: CONSULT - Speech Pathology Inpatie nt [facility] STANDARD TITLE: SPEECH PATHOLOGY CONSULT DATE OF NOTE: DEC 08, 2021@13:06 ENTRY DATE: DEC 08, 2021@13:06:46 AUTHOR: CYNTHIA HERNANDEZ EXP COSIGNER: URGENCY: STATUS: COMPLETED Clinical Swallowing Evaluation Consult received from the inpatient team due to Patient has subacute 6 month history of odynophagia and radiologic evidence suggestive of large volume aspiration e vent likely related to potential dysphagia Patient age: 71 Admission Date: Nov Admission Dx: pneumo rachel with COVID + Report: CT THORAX W/O CONT 12/06/2021: COMPARISON: chest CT 06/23/2019, 05/04/2017 . INDICATION: [...] CT or MRI for more definitive characterization. Per general medicine note today 12/07/2021: Assessment: 71 year old MALE with a [...] COVID+ with symptomatology concerning for aspiration PNA marge valerie recurrence of primary malignancy. The patient's [...] empirically treat aspiration pneumonia and COVID . PMHx: Active problems - Computerized Problem List is t he source for the followin. Former smoker 2. 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 Osteoarthritis 4. Psoriasis 5. Spinal stenosis of lumbar region 6. Low back pain 7. Joint pain 8. Primary malignant neoplasm of lung 9. Morbid obesity 10. Benign essential hypertension 11. Chronic obstructive lung disease Current Diet: [ ] NPO [X] Regular Solids [ ] Soft and Bite Sized [ ] Minced and Moist [ ] Puree [X] Thin Liquids [ ] Mildly/Mogul Thick Liquids [ ] Moderately/Honey Thick Liquids [ ] Other: Objective: Swallow Evaluation Assessment: Alert and oriented to: [X] Person [X] Place [X] Time Oral Motor Exam: Face: [ ] symmetric [X] weak/droop on ([X]left ; [ ] right) Tongue: [X] protrudes midline [ ] deviates to([ ]left;[ ] right) [ ] Xerostomia [ ] Fasciculations Labia: [X] adequate [ ] weak, drooling Vocal Quality: [ ] WNL/clear [ ] congested [X] hoarse, raspy [ ] strained [ ] weak Palate: [X] Symmetric- full appearin g uvula and red, reports intermittent sore throats. [ ] Decreased on ([ ]left ; [ ] right) Dentition: [ ] natural good condition [ ] natural poor condition [ ] missing teeth [X] edentulous- says dentures don't fit since l osing so much weight [ ] upper dentures ([ ]good fit; [ ]loose fit) [ ] lower dentures ([ ]good fit; [ ]loose fit) Patient is an: [X]Independent feeder [ ]Needs assistance [ ]Needs to be fed 3 ounce Water Swallow Assessment [X]Patient was unable to drink 3 ounces of water and failed the 3 ounce water challenge Assessed with iced cold water, room temp water b oth by cup sip, pudding and cracker. Deferred bread as patient said he didn' t want to try it. -With ice cold water sip, duplicated the pain/di scomfort in his chest when he swallows and he had immediate burping then hiccu ps suggestive of esophageal dysmotility with possible esophageal spasms. War m room temp water was better tolerated and did not cause the discomfort or hi ccups and burping. - chewing functional for sof t solids, reports feeling soft solids go down better and when asked feels when he took a sip of room temp water after the cracker and pudding that it went down be tter but still felt he didn't want more than a bite or two. He reports poor appetite and feels discomfort an d pressure when he has solids usually more than liquids an d he will stop eating when it occurs feeling it from upper esophagus to his stomach. He has lost 70-100 lbs he reports over the pasy year. He has early satiety. Seen by PCP in October 2021 with referral to [facility] for EGD which had not been completed yet. Per PCP note he was complaining of dysphagi a to solids primarily and significant weight loss. He reports feeling his breathing is better when he lays down after eating. Denies heartburn symptoms. Denies regurgitation. Denies coughing with po. Sleeps flat in bed at home. Early satiety. Esophageal pressure/pain when eat ing minimal po. Former smoker 102 ppy, former significant ETOH q uit both in 2016 with lung cancer diagnosis. Also reports he stopped drinking coffee at that time as well. He typically drinks unsweetened tea with lots of ice and puts ice in all his drinks. Assessment Summary:71 year o ld MALE with a history of Stage IIIa [...] COVID+ with symptomatology concerning for aspiration PNA marge valerie recurrence of primary malignancy. Given findings reported on CT Thorax with left to right hyperinflation of left lung due to previ ous right lung treatment the esophagus is shifted as well and this may be causing some compressive effect on the esophagus resulting in stasis of the bolus with minimal po. Patient was referred due to concern for possible aspiration on CT with patient awaiting scheduling for EGD thru [facility] referred by PCP in October 2021. Patient describes feeling solids>liquids cause pain vs p ressure within his entire esophagus. He has early satiety, no appetite and abandons po after only a few bites. He drinks iced cold drinks and does not d rink coffee or ETOH. He feels his breathing improves when he lays down after e ating. He has been having diarrhea as well. He denies coughing or choking with po. He is edentulous due to poor fitting dentures since losing significant w eight. Patient presents with dysphagia symptoms suggest azar more of esophageal dysmotility +/- esophageal s pasms with feeling esophageal pressure/pain with po of solids>liquids but it als o occured with ice cold water but not with room temp water. He started burping wi th hiccups after the ice cold water as well. He had no coughing or overt pharyng eal dysphagia symptoms but he was unable to pass the 3 oz water test therefore re ferral for MBS with esophageal sweep is recommeneded to further assess. Further r ecs pending MBS. Patient was instructed in the below recs and swallowing strategi es. Reflux precautions recommended and instructed as well. Recommendations: 1. Diet: minced and moist solids and thin liquid s, rec avoid putting ice in liquids instead have room temp water with meals, alt solids and liquids and 2. Pills: [X] whole as tolerated; [ ] crushed in puree 3. Aspiration and reflux prevention strategies 4. Reflux Strategies: [X] Elevate HOB 35 degrees or 4-6 inches with be d raisers to decrease noc reflux. Out of bed for meals and stay upright fo r 2 hours after meals, try to not lay down after meals [X] Room temp water with meals and avoid ice col d liquids or carbonated liquids [X] Make sure to drink liquids during meals and alt solid and liquids throughout the meal. [X] Continue PPI as prescribed [ ] Avoid constipation 5. Swallowing Strategies/Exercises: [X] Small bites and sips [ ] No straws [ ] Take small sip, briefly hold in your mouth, [ ] chin tuck, then swallow [ ] Avoid mixed consistencies such as non-unifor m soups, dry cereal with milk, or using liquids to wash down solids [ ] Fully swallow solids before taking a sip [ ] Avoid talking when eating 6. EMERGENCY COMMUNICATIONS DISPATCHER will follow 7. Consider: [ ] EGD [ ] Barium Swallow [X ] GI Consult- consider EGD which had been babita nned as outpatient but wasn't scheduled yet [ ] Neuro Consult [ ] ENT Consult [ ] Palliative Care Consult [ ] RD Consult [X] Other: Pager # [phone] /es/ Cynthia Hernandez MS CCC-EMERGENCY COMMUNICATIONS DISPATCHER Speech Language Pathologist Signed: 12/08/2021 14:30
--- OUTSIDE RECORDS SUMMARY | 2022-01-19 08:24 | XMS_ITS ---
DAILY HOSPITALIZATION DATA [facility] Encounter Summary Created on:December 08, 2021 Patient:LUCAS MEEK Sex:Male :1950 Author Organization [facility] Address [address] [place] [id number] Support Name Relationship Address Phone YUSRA MEEK Unavailable [address] [place] [address] YUSRA MEEK Unavailable [address] [place] [facility] [place] [address] CLAY MOSLEY Unavailable Unavailable SJ SANATCRUZ Unavailable Unavailable Insurance Providers: All historical and [...] MEDICARE MEDICARE PART Jun 18, PART A [id number] DO KALYANI PATIENT (WNR) (M) A 2016 13A 1 [place] MEDICARE MEDICARE PART Jun 18, PART B [id number] DO KALYANI PATIENT (WNR) (M) B 2017 13A 1 [place] MEDICARE MEDICARE PART Jun 18, PART B [id number] KALYANIDO PATIENT (WNR) (M) B 2017 VH81 2 [place] MEDICARE MEDICARE PART Jun 18, PART A [id number] DO KALYANI PATIENT (WNR) (M) A 2017 VH81 2 [place] UNITED MEDICARE MCR(W Jun 18 [id number] Luz MEEK PATIENT HEALTHCARE ADVANTAGE NR) 2021 37 0 [facility] (WNR) Selected Encounter This section includes the information on record at [place] for the Encounter. Date/Time Encounter Type Encounter Description Reason Provider Source Dec 08, 2021 10:37 Inpatient Visit DAILY HOSPITALIZATION DATA [facility] Encounter Template Text not used by [place] Plan of Treatment: Future Appointments (+ 6 months) and Future Tests (+/- 45 days) The Plan of Treatment section includes future care activities for the patient from all [place] treatmentfacilities. This section includes future appointments and [...] - [place] [facility] Jan 10, 2022 11:30 AM AMBULATORY - MEDICINE [facility] Jan 24, 2022 08:00 [place] [facility] Feb 21, 2022 10:00 AM [place]UL[place]ORY [place] [facility] Mar [...] The data comes from all [place] treatment [facility]. Test Date/Time Test Type Test Details Facility Name October 31, 2021 07:37 AM Consult Order COMMUNITY CARE-EGD [facility] Cons Senior Insight Manager's Choice November 15, 2021 10:37 AM Consult Order [facility] CARE-PODIATRY Cons Senior Insight Manager's Choice Dec 06, 2021 12:52 PM Pharmacy [place] Infusion Order [facility] Dec 06, 2021 03:24 PM Pharmacy - [place] [facility] Dec 06, 2021 03:40 PM Pharmacy - [place] Order [facility] Dec 15, 2021 08:41 AM Consult Order SPEECH PATHOLOGY [place] OUTPATIENT Cons [facility] Senior Insight Manager's Choice Jan 15, 2022 10:08 PM Consult Order [facility] CARE-PALLIATIVE CARE Cons Senior Insight Manager's Choice Lab Results: +/- 30 days [...] Reference Range Comment Dec 15, 2021 [place] P4 GLU,BUN,CREAT,LYTES,CA Speci men Type: PLASMA 06:43 AM [facility] Comment: Tests performed on Tamecco (405) SN:[id number] Ordering Provid er: ISATU TODD Report Released Date/Time: Dec 11, 2021 07:42 AM Reporting Lab: [facility] T [facility] [address] [facility] [address] Performing Lab: [facility] [address] [facility] [address] UREA NITROGEN 9 7-25 SODIUM 137 135-145 POTASSIUM 3.8 3.5-5.0 CHLORIDE 105 100-110 CARBON DIOXIDE 26 20-30 ANION GAP 6 4-16 GLUCOSE 102 H 65-100 CREATININE 0.64 0.5-1.5 CALCIUM 8.1 L 8.5-10.5 eGFR(CKD-EPI 2020) >90.0 >60 Dec 15, 2021 06:43 AM [facility] CBC PROFILE Sp ecimen Type: BLOOD No comment enter ed. Ordering Provid er: ISATU TODD Report Released Date/Time: Dec 10, 2021 07:22 AM Reporting Lab: [facility] [address] [facility] [address] Performing Lab: [facility] [address] [facility] [address] WBC 5.7 4.5-11.0 RBC 4.22 L 4.23-5.66 [...] ABSOLUTE NRBC 0.00 0-0 Dec 14, [address] [facility] CYTOGENETIC Specimen Type: ESOPHAGUS 02:59 PM VAOC FISH([facility]) Comment: ~For T est: CYTOGENETIC FISH([facility]) ~FISH HER 2 NUE, FFPE See full report in Runnit Image display viewer/tab#LAB-Reference Ordering Provid er: NIURKA MILLER Report Released Date/Time: Dec 21, 2021 12:11 PM Reporting Lab: [facility] [address] [facility] [address] Performing Lab: [facility] CYTOGENETIC FISH([facility]) comment Dec 14, [address] [facility] P4 GLU,BUN,CREAT,LYTES,CA Speci men Type: PLASMA 06:27 AM [facility] Comment: Tests performed on Tamecco (405) SN:[id number] Ordering Provid er: ISATU TODD Report Released Date/Time: Dec 11, 2021 07:42 AM Reporting Lab: [facility] [address] [facility] [address] Performing Lab: [facility] [address] [facility] [address] UREA NITROGEN 10 7-25 SODIUM 137 135-145 POTASSIUM 4.0 3.5-5.0 CHLORIDE 104 100-110 CARBON DIOXIDE 25 20-30 ANION GAP 8 4-16 GLUCOSE 99 65-100 CREATININE 0.67 0.5-1.5 CALCIUM 8.2 L 8.5-10.5 eGFR(CKD-EPI 2020) >90.0 >60 Dec 14, 2021 06:27 AM [facility] CBC PROFILE Sp ecimen Type: BLOOD No comment enter ed. Ordering Provid er: ISATU TODD Report Released Date/Time: Dec 10, 2021 07:22 AM Reporting [facility]: [facility] [address] [facility] [address] Performing Lab: [facility] [address] [facility] [address] WBC 6.0 4.5-11.0 RBC 4.29 4.23-5.66 HGB [...] 0.00 0-0 Dec 13, 2021 06:[address] [facility] CBC PROFILE Sp ecimen Type: BLOOD No comment enter ed. Ordering Provid er: ISATU TODD Report Released Date/Time: Dec 10, 2021 07:22 AM Reporting Lab: [facility] [address] [facility] [address] Performing Lab: [facility] [address] [facility] [address] WBC 5.6 4.5-11.0 RBC 4.28 4.23-5.66 HGB [...] ABSOLUTE NRBC 0.00 0-0 Dec 13, [address] [facility] P4 GLU,BUN,CREAT,LYTES,CA Speci men Type: PLASMA 06:34 AM [facility] Comment: Tests performed on Tamecco (405) SN:[id number] Ordering Provid er: ISATU TODD Report Released Date/Time: Dec 11, 2021 07:42 AM Reporting Lab: [facility] [address] [facility] [address] Performing Lab: [facility] [address] [facility] [address] UREA NITROGEN 12 7-25 SODIUM 136 135-145 POTASSIUM 3.9 3.5-5.0 CHLORIDE 105 100-110 CARBON DIOXIDE 24 20-30 ANION GAP 7 4-16 GLUCOSE 102 H 65-100 CREATININE 0.66 0.5-1.5 CALCIUM 8.3 L 8.5-10.5 eGFR(CKD-EPI 2020) >90.0 >60 Dec 12, 2021 [facility] P[facility] GLU,BUN,CREAT,LYTES,CA Speci men Type: PLASMA 06:21 AM [facility] Comment: Tests performed on Tamecco (405) SN:[id number] Ordering Provid er: ISATU TODD Report Released Date/Time: Dec 11, 2021 07:42 AM Reporting Lab: [facility] [address] [facility] [address] Performing Lab: [facility] [address] [facility] [address] UREA NITROGEN 11 7-25 SODIUM 139 135-145 POTASSIUM 4.1 3.5-5.0 CHLORIDE 107 100-110 CARBON DIOXIDE 24 20-30 ANION GAP 8 4-16 GLUCOSE 110 H 65-100 CREATININE 0.70 0.5-1.5 CALCIUM 8.3 L 8.5-10.5 eGFR(CKD-EPI 2020) >90.0 >60 Dec 12, 2021 06:21 AM [facility] CBC PROFILE Sp ecimen Type: BLOOD No comment enter ed. Ordering Provid er: ISATU TODD Report Released Date/Time: Dec 10, 2021 07:22 AM Reporting Lab: [facility] [address] [facility] [address] Performing Lab: [facility] [address] [facility] [address] WBC 5.5 4.5-11.0 RBC 4.37 4.23-5.66 HGB [...] 0.00 0-0 Dec 12, 2021 06:00 AM [employer] MAGNESIUM Sp ecimen Type: PLASMA Comment: Testin g Performed on Tamecco (405) SN:[id number] Ordering Provid er: ISATU TODD Report Released Date/Time: Dec 12, 2021 08:24 AM Reporting Lab: [facility]ma[facility] [address] [facility] [address] Performing Lab: [facility] [place] emazeT [facility] [address] [facility] [address] MAGNESIUM 1.8 1.6-2.6 Dec 12, 2021 06:00 AM [employer] [place] PHOSPHORUS Sp ecimen Type: PLASMA Comment: Testin g Performed on Tamecco (405) SN:[id number] Ordering Provid er: ISATU TODD Report Released Date/Time: Dec 12, 2021 08:24 AM Reporting Lab: [facility]T [facility] [address] [facility] [address] Performing Lab: [facility]T [place] [address] [facility] [address] PHOSPHORUS 3.1 2.5-5.0 Dec 11, 2021 06:15 AM [facility] [place] emazeT [facility] ELECTROLYTES Sp ecimen Type: PLASMA Comment: Tests performed on Tamecco (405) SN:[id number] Ordering Provid er: ISATU TODD Report Released Date/Time: Dec 10, 2021 07:22 AM Reporting Lab: [facility] [address] [facility] [address] Performing Lab: [facility] e[facility]zeT [facility] [address] [facility] [address] SODIUM 137 135-145 POTASSIUM 4.3 3.5-5.0 CHLORIDE 108 100-110 CARBON DIOXIDE 20 20-30 ANION GAP 9 4-16 Dec 11, 2021 06:15 AM WHITE [employer] [facility] CBC PROFILE Sp ecimen Type: BLOOD Comment: Result s checked Ordering Provid er: ISATU TODD Report Released Date/Time: Dec 10, 2021 07:22 AM Reporting Lab: [facility] O[facility] [address] [facility] [address] Performing Lab: [facility] [place] O[facility]GAT [facility] [address] [facility] [address] WBC 5.8 4.5-11.0 RBC 4.37 4.23-5.66 HGB [...] 0.00 0-0 Dec 11, 2021 06:00 AM [facility] PHOSPHORUS Sp ecimen Type: PLASMA Comment: Tests performed on Tamecco (821) SN:[id number] Results checked Ordering Provid er: ISATU TODD Report Released Date/Time: Dec 11, 2021 07:44 AM Reporting Lab: [facility] [address] [facility] [address] Performing Lab: [facility] OME[facility] [place] [address] [facility] [address] PHOSPHORUS 3.0 2.5-5.0 Dec 10, 2021 08:05 AM [place] [facility] MAGNESIUM Sp ecimen Type: PLASMA Comment: [place] [id number] on Dec 10, 2021@08:31 Tests performed on Tamecco (405) SN:[id number] Ordering Provid er: ISATU TODD Report Released Date/Time: Dec 10, 2021 07:22 AM Reporting Lab: [place] [facility] [address] [place] [facility] [place] [place] [address] Performing Lab: [place] [facility] [address] [place] [facility] [place] [address] MAGNESIUM 1.7 1.6-2.6 Dec 10, 2021 08:05 AM [place] UREA NITROGEN Specimen Type: PLASMA [facility] Comment: [place] [id number] on Dec 10, 2021@08:31 Tests performed on Tamecco (405) SN:[id number] Ordering Provid er: ISATU TODD Report Released Date/Time: Dec 10, 2021 07:22 AM Reporting Lab: [place] [facility] [address] [place] [facility] [place] [place] [address] Performing Lab: [place] [facility] [address] [place] [facility] [place] [address] UREA NITROGEN 8 7-25 Dec 10, 2021 08:05 AM [place] [facility] PHOSPHORUS Sp ecimen Type: PLASMA Comment: [place] [id number] on Dec 10, 2021@08:31 Tests performed on Tamecco (405) SN:[id number] Ordering Provid er: ISATU TODD Report Released Date/Time: Dec 10, 2021 07:22 AM Reporting Lab: [place] [facility] [address] [place] [facility] [place] [address] Performing Lab: [place] [facility] [address] [place] [facility] [place] [address] PHOSPHORUS 1.8 L 2.5-5.0 Dec 10, 2021 08:05 AM [place] [facility] CALCIUM Sp ecimen Type: PLASMA Comment: [place] [id number] on Dec 10, 2021@08:31 Tests performed on Tamecco (405) SN:[id number] Ordering Provid er: ISATU TODD Report Released Date/Time: Dec 10, 2021 07:22 AM Reporting Lab: [place] [facility] [address] [facility] [address] Performing Lab: [place] [facility] [address] [facility] [address] CALCIUM 8.3 L 8.5-10.5 Dec 10, 2021 08:05 AM [place] [facility] GLUCOSE Sp ecimen Type: PLASMA Comment: [place] [id number] on Dec 10, 2021@08:31 Tests performed on Pham Brenco (405) SN:[id number] Ordering Provid er: ISATU TODD Report Released Date/Time: Dec 10, 2021 07:22 AM Reporting Lab: [place] [facility] [address] [facility] [address] Performing Lab: [place] [facility] [address] [facility] [address] GLUCOSE 144 H 65-100 Dec 10, 2021 08:05 [place] CREATININE WITH eGFR Specime n Type: PLASMA AM [facility] PANEL [place]: [place] [id number] on Dec 10, 2021@08:31 Tests performed on Tamecco (405) SN:[id number] Ordering Provid er: ISATU TODD Report Released Date/Time: Dec 10, 2021 07:22 AM Reporting Lab: [place] [facility] [address] [facility] [address] Performing Lab: [place] [facility] [address] [facility] [address] CREATININE 0.78 0.5-1.5 eGFR(CKD-EPI 2020) >90.0 >60 Dec 10, 2021 08:05 AM [place] [facility] ELECTROLYTES Sp ecimen Type: PLASMA Comment: [place] [id number] on Dec 10, 2021@08:31 Tests performed on Pham Brenco (405) SN:[id number] Ordering Provid er: ISATU TODD Report Released Date/Time: Dec 10, 2021 07:22 AM Reporting Lab: [place] [facility] [address] [facility] [address] Performing Lab: [place] [facility] [address] [facility] [address] SODIUM 139 135-145 POTASSIUM 3.7 3.5-5.0 CHLORIDE 107 100-110 CARBON DIOXIDE 24 20-30 ANION GAP 8 4-16 Dec 10, 2021 08:05 AM [facility] CBC PROFILE Sp ecimen Type: BLOOD No comment enter ed. Ordering Provid er: ISATU TODD Report Released Date/Time: Dec 10, 2021 07:22 AM Reporting Lab: [facility] [place] [facility] [address] [facility] [address] Performing Lab: [place] [facility] [address] [facility] [address] WBC 7.0 4.5-11.0 RBC 4.54 4.23-5.66 HGB [...] 0.00 0-0 Dec 09, 2021 06:46 AM [facility] MAGNESIUM Sp ecimen Type: PLASMA Comment: Tests performed on Tamecco (213) SN:[id number] Ordering Provid er: ISATU TODD Report Released Date/Time: Dec 08, 2021 10:23 AM Reporting Lab: [facility] [address] [facility] [address] Performing Lab: [facility] [address] [facility] [address] MAGNESIUM 1.6 1.6-2.6 Dec 09, [address] [facility] P4 GLU,BUN,CREAT,LYTES,CA Speci men Type: PLASMA 06:46 AM [facility] Comment: Tests performed on Tamecco (405) SN:[id number] Ordering Provid er: ISATU TODD Report Released Date/Time: Dec 08, 2021 05:00 PM Reporting Lab: [facility] [address] [facility] [address] Performing Lab: [facility] [address] [facility] [address] UREA NITROGEN 6 L 7-25 SODIUM 134 L 135-145 POTASSIUM 3.7 3.5-5.0 CHLORIDE 103 100-110 CARBON DIOXIDE 23 20-30 ANION GAP 8 4-16 GLUCOSE 112 H 65-100 CREATININE 0.70 0.5-1.5 CALCIUM 8.1 L 8.5-10.5 eGFR(CKD-EPI 2020) >90.0 >60 Dec 09, 2021 06:[address] [facility] CBC PROFILE Sp ecimen Type: BLOOD No comment enter ed. Ordering Provid er: ISATU TODD Report Released Date/Time: Dec 08, 2021 05:00 PM Reporting Lab: [facility] [address] [facility] [address] Performing Lab: [facility] [address] [facility] [address] WBC 7.1 4.5-11.0 RBC 4.40 4.23-5.66 HGB [...] 0.00 0-0 Dec 08, 2021 06:39 AM [place] [facility] T [facility] MAGNESIUM Sp ecimen Type: PLASMA Comment: Testin g Performed on Tamecco (405) SN:[id number] Ordering Provid er: ISATU TODD Report Released Date/Time: Dec 07, 2021 10:32 AM Reporting Lab: [facility] [address] [facility] [address] Performing Lab: [facility] [address] [facility] [address] MAGNESIUM 1.5 L 1.6-2.6 Dec 08, 2021 [place] Cuil T P4 GLU,BUN,CREAT,LYTES,CA Speci men Type: PLASMA 06:39 AM [facility] Comment: Testin g Performed on Tamecco (405) SN:[id number] Ordering Provid er: ISATU TODD Report Released Date/Time: Dec 07, 2021 10:32 AM Reporting Lab: [employer] [facility] [address] [facility] [address] Performing Lab: [facility] [address] [facility] [address] UREA NITROGEN 6 L 7-25 SODIUM 136 135-145 POTASSIUM 3.3 L 3.5-5.0 CHLORIDE 104 100-110 CARBON DIOXIDE 22 20-30 ANION GAP 10 4-16 GLUCOSE 133 H 65-100 CREATININE 0.76 0.5-1.5 CALCIUM 8.4 L 8.5-10.5 eGFR(CKD-EPI 2020) >90.0 >60 Dec 08, 2021 06:39 AM WHITE Cuil T [facility] CBC PROFILE Sp ecimen Type: BLOOD No comment enter ed. Ordering Provid er: ISATU TODD Report Released Date/Time: Dec 07, 2021 10:32 AM Reporting Lab: [facility] [address] [facility] [address] Performing Lab: [facility] [address] [facility] WBC 8.4 4.5-11.0 RBC 4.75 [...] NRBC 0.00 0-0 Dec 07, 2021 06:[address] [facility] LIVER PROFILE Specimen Typ e: PLASMA AM [facility] Comment: Tests performed on Tamecco (405 SN:[id number] Ordering Provid er: PORFIRIO WALTERS Report Released Date/Time: Dec 06, 2021 06:57 PM Reporting Lab: [facility] [address] [facility] [address] Performing Lab: [facility] [address] [facility] [address] PROTEIN, TOTAL 5.7 L 6.0-8.5 ALBUMIN 2.4 L 3.2-5.0 BILIRUBIN, TOTAL 0.4 0.2-1.2 ALKALINE PHOSPHATASE 109 40-150 ALT(SGPT) 10 7-52 AST(SGOT) 15 5-34 FIB-4 SCORE 1.92 <2.67 Dec 07, 2021 [facility] P4 GLU,BUN,CREAT,LYTES,CA Speci men Type: PLASMA 06:42 AM [facility] Comment: Tests performed on Tamecco (405) SN:[id number] Ordering Provid er: PORFIRIO WALTERS Report Released Date/Time: Dec 06, 2021 06:57 PM Reporting Lab: [place] [facility] [address] [facility] [address] Performing Lab: [place] [facility] [address] [facility] [address] UREA NITROGEN 9 7-25 SODIUM 135 135-145 POTASSIUM 3.5 3.5-5.0 CHLORIDE 103 100-110 CARBON DIOXIDE 22 20-30 ANION GAP 10 4-16 GLUCOSE 92 65-100 CREATININE 0.73 0.5-1.5 CALCIUM 8.0 L 8.5-10.5 eGFR(CKD-EPI 2020) >90.0 >60 Dec 07, 2021 06:42 AM [place] CBC PROFILE Specimen Type: BLOOD [facility] No comment enter ed. Ordering Provid er: PORFIRIO WALTERS Report Released Date/Time: Dec 06, 2021 06:57 PM Reporting Lab: [place] [facility] [address] [facility] [address] Performing Lab: [facility] [address] [facility] [address] WBC 5.7 4.5-11.0 RBC 4.15 L 4.23-5.66 [...] VAM[facility]OC %) AUTOMATED Comment: Tests performed on Tamecco (405) SN:[id number] Ordering Provid er: ISATU TODD Report Released Date/Time: Dec 07, 2021 10:28 AM Reporting Lab: [place] [facility] [address] [facility] [address] Performing Lab: [place] [facility] [address] [facility] [address] RETICULOCYTES (%) AUTOMATED 1.23 0. 6-2.0 RETICULOCYTES (ABS) AUTOMATED 0.052 0.030-0.090 Dec 06, 2021 09:45 [place] MRSA SURVL NARES Specimen Ty pe: NARES PM [facility] DNA No comment enter ed. Ordering Provid er: ALVARO VARGHESE Report Released Date/Time: Dec 07, 2021 02:20 AM Reporting Lab: [place] [facility] [address] [facility] [address] Performing Lab: [place] [facility] [address] [facility] [address] MRSA SURVL NARES DNA NEGATIVE NEGATIVE Dec 06, 2021 06:00 [place] URINALYSIS W/REFLEX TO Speci men Type: URINE PM [facility] CULTURE No comment enter ed. Ordering Provid er: JELANI SÁNCHEZ Report Released Date/Time: Dec 06, 2021 11:57 AM Reporting Lab: [place] [facility] [address] [facility] [address] Performing Lab: [place] [facility] [address] [facility] [address] URINE COLOR Arlin YELLOW SPECIFIC GRAVITY 1.029 [...] 21, RIVER VARIANT Comment: https://www.cdc.gov/coronavirus/2019-ncov/cases-updates/variant- surveillance/variant-info.html The [place] SARS CoV 2 Su[employer]i Research Assay-GX is a next-generation sequencing (NGS) assa 2021 [facility] SEQUENCING y that determine s the complete genome sequence of the SARS-CoV-2 virus. The assay contains variant-tolerant primers to broaden and improve the coverage for variant detection and increase the sensitivity 12:00 [facility] PNL(WH) of the panel to enable detection from lower viral titer samples. The assay is run on the SuperGen Sequencer, which performs automated library preparation, sequencing, analysis, and reporting. PM The sequence an alysis includes determination of viral phylogenetic lineage by comparison to the reference strain Wuhan-Hu-1, GenBank: [id number]. Sequence determination may not be possible owing [...] and its performance characteristics determined by the [facility] Molecular Diagnostics Laboratory, which is certified under the Clinical Laboratory Improveme nt Amendments (C MARCO) as qualified to perform high complexity clinical laboratory testing. This test is validated for clinical use at [facility] and should not be regarded as investigational or for research. The FDA does not require this test to go through premarket FDA review, and therefore it has not been cleared or approved by the FDA. This report was reviewed and approved by the on-service pathologist. Ordering Provid er: JELANI SÁNCHEZ Report Released Date/Time: Dec 06, 2021 01:13 PM Reporting Lab: [facility] [address] [facility] [address] Performing Lab: [facility] [address] [facility] [address] SARS-CoV-2 CLADE() 22C (OMICRON) SARS-CoV-2 LINEAGE() BA.2.12.1 Dec 06, 2021 12:00 [facility] AG SCREEN Specimen Type: NASAL CAVITY PM [facility] PANEL BINAX(405) Comment: Testi ng Performed By: Mike Briscoe Ordering Provid er: JELANI SÁNCHEZ Report Released Date/Time: Dec 08, 2021 08:23 AM Reporting Lab: [facility] [address] [facility] [address] Performing [facility]: [facility] [address] [facility] [address] COVID-19 AG SCRN(wrj BINAX) POSITIVE HH NE G Dec 06, 2021 12:00 PM [facility] TROPONIN II Sp ecimen Type: PLASMA Comment: Tests performed on Pham Patcher Helper (405) SN:[id number] Ordering Provid er: JELANI SÁNCHEZ Report Released Date/Time: Dec 06, 2021 11:57 AM Reporting Lab: [facility] [address] [place] [place] [address] Performing Lab: [facility] [address] [facility] [address] TROPONIN II 0.03 0.00-0.29 Dec 06, 2021 12:00 PM [facility] LIVER PROFILE Sp ecimen Type: PLASMA Comment: Testin g Performed on Pham Patcher Helper (405) SN:[id number] Ordering Provid er: JELANI SÁNCHEZ Report Released Date/Time: Dec 06, 2021 11:57 AM Reporting Lab: [facility] [address] [facility] [address] Performing Lab: [facility] [address] [facility] [address] PROTEIN, TOTAL 6.6 6.0-8.5 ALBUMIN 2.8 L 3.2-5.0 BILIRUBIN, TOTAL 0.6 0.2-1.2 ALKALINE PHOSPHATASE 134 40-150 ALT(SGPT) 13 7-52 AST(SGOT) 18 5-34 FIB-4 SCORE 1.94 <2.67 Dec 06, 2021 [facility] [place] P4 GLU,BUN,CREAT,LYTES,CA Speci men Type: PLASMA 12:00 PM [facility] Comment: Testin g Performed on Pham Patcher Helper (405) SN:[id number] Ordering Provid er: JELANI SÁNCHEZ Report Released Date/Time: Dec 06, 2021 11:57 AM Reporting Lab: [facility] [address] [facility] [address] Performing Lab: [facility] [address] [facility] [address] UREA NITROGEN 13 7-25 SODIUM 138 135-145 POTASSIUM 3.8 3.5-5.0 CHLORIDE 103 100-110 CARBON DIOXIDE 23 20-30 ANION GAP 12 4-16 GLUCOSE 105 H 65-100 CREATININE 0.90 0.5-1.5 CALCIUM 8.7 8.5-10.5 eGFR(CKD-EPI 2020) >90.0 >60 Dec 06, 2021 12:00 PM [facility] BNP(P) Sp ecimen Type: PLASMA Comment: Tests performed on [employer] Helper (405) SN:[id number] Ordering Provid er: JELANI SÁNCHEZ Report Released Date/Time: Dec 06, 2021 11:57 AM Reporting Lab: [facility] [address] [facility] [address] Performing Lab: [facility] [address] [facility] [address] BNP(P) 224.8 H 10-100 Dec 06, 2021 [facility] [place] COVID-19+FLU/RSV DIAGNOSTIC Spe cimen Type: NASOPHARYNX 12:00 PM [facility] PANEL(405) Comment: Tests performed on [employer] (405) Critical results called to and read back by: ALESHIA WILKINSON RN 12/06/21 @ 1312 Ordering Provid er: JELANI SÁNCHEZ Report Released Date/Time: Dec 06, 2021 11:57 AM Reporting Lab: [facility] T [facility] [address] [facility] [address] Performing Lab: [place] [facility] [address] [facility] [address] FLU A(PCR) NEGATIVE NEGATIVE FLU B(PCR) NEGATIVE NEGATIVE RSV(PCR) NEGATIVE NEGATIVE COVID-19(ODV-elh-ORZNIYMUO) DETECTED HH NO T DETECTED Dec 06, 2021 12:00 [facility] Sp ecimen Type: BLOOD No comment enter ed. Ordering Provid er: JELANI SÁNCHEZ Report Released Date/Time: Dec 06, 2021 11:57 AM Reporting Lab: [facility] [address] [facility] [address] Performing Lab: [facility] [address] [facility] [address] WBC 7.2 4.5-11.0 RBC 4.86 4.23-5.66 HGB [...] 0 2021 11:30 /min mm[Hg] [facility] Dec 08, 99.2 F 94 126/76 18 /min 98 % 0 2021 02:15 /min mm[Hg] RIVER PM [facility] Dec 08, 0 2021 10:37 [facility] AM [facility] Dec 08, 97.5 F 106 122/76 16 /min 97 % 0 [place] 2021 05:55 /min mm[Hg] [facility] AM [facility] Dec 08, 0 2021 03:52 [facility] AM [facility] Social History: Smoking Status (Most current) [...] > [address] [facility] Tobacco Use History This section includes a history of the smoking, or tobacco- related health factors, that were collected on or before the date of the Encounter. The data comes from the [place] facility where the Encounter took place. Date/Time Smoking Status/Tobacco Use Comment [facility] Apr 01, 2020 01:16 PM QUIT TOBACCO USE 1-[address] [facility] Mar 24, 2020 03:00 PM QUIT [...] TOBACCO USE IN PAST YEAR CAREY DOYLE [facility] May 01, 2016 03:11 PM QUIT TOBACCO USE IN PAST YEAR CAREY DOYLE [facility] May 01, 2016 11:19 AM QUIT TOBACCO USE IN PAST YEAR [facility] [place] [facility] Mar 16, 2016 12:50 PM V1-PT DECLINES REF TO TOBACCO [facility] [place] [facility] CESS PRGM Mar 16, 2016 12:50 PM V1-PT THINKING ABOUT QUIT CAREY DOYLE [facility] TOBACCO USE Aug 12, 2015 08:48 AM CURRENT SMOKER CAREY Yates [facility] Radiology Reports: +/- 30 days of [...] comes from all [place] treatment facilities. Date/Time Radiology Report Provider Source Dec 13, 2021 12:57 PM MRI ABDOMEN W/WO CONTRAST: MARYELLEN LONG LUCAS LARES N [id number] -1950 [facility] Exm Date: DEC 13, 2021@12:57 Req Phys: ISATU TODD Loc: OP Unknown/0 12-15-2021@13:20 Img Loc: MRI IMAGING (OOS) Service: [facility] MEDICINE (Case [id number] COMPLETE) MRI ABDOMEN W/WO CONTRAST (M RI Detailed) CPT:10970 Reason for Study: further characterization of a [...] new lyphadenopathy REQUESTING MD: Isatu Todd PAGER: [phone] PHONE: [phone] Weight: 232.2 lb [105.32 kg] (12/12/2021 05:00) [...] patient will need to arrange for a starting gate driver to take him/her home after the [...] 15, 2021 Date Verified: DEC 15, 2021 Technical Support Coordinator E-Sig:/ES/MARYELLEN LONG Report: MRI ABDOMEN W/WO [...] MALIGNANCY Primary Interpreting Staff: Staff AMELIA THOMAS (Technical Support Coordinator) / Dec 10, 2021 09:[address] ABDOMEN & PELVIS: RADIOLOGY,OUTSIDE [facility] [place] LUCAS MEEK N [id number] -1950 M SERVICE [facility] Exm Date: DEC 10, 2021@09:30 Req Phys: ISATU TODD Loc: 1S MED/12-10@10:57 Img Loc: CT SCAN (OOS) Service: [facility] (Case [id number] COMPLETE) CT ABD & PELVIS WITHOUT CONT RAST (CT Detailed) CPT:12288 Reason for Study: 71 yo male with [...] INDEX - NO HEIGHTS FOUND Pager number: [phone] STAT orders MUST be call ed to RADIOLOGY [phone] to speak to the appropriate tissue recovery technician. Report Status: Verified Date Reported: DEC 10, 2021 Date Verified: DEC 10, 2021 Technical Support Coordinator E-Sig: Report: EXAM: CT abdomen and [...] ph nodes. READING PHYSICIAN: Ramone Munoz D.O. [phone] 12/10/2021 10:55 EDT [facility] National Teleradiology Program [phone] (For Medical Practitioner Use Only ) [address] [facility], [facility] [address], [address] [place] [address] Attention Patients / Veterans: If you have ques tions or concerns about these test results, please contact your o rdering provider or primary care team. Primary Diagnostic Code: SIGNIFICANT ABNORMALIT Y, ATTN NEEDED Primary Interpreting Staff: RADIOLOGY,OUTSIDE SERVICE, Staff Physician / Dec 09, 2021 07:34 AM BASW (MODIFIED): JESSIE CHENEY [facility] LUCAS MEEK N [id number] -1950 [facility] Exm Date: DEC 09, 2021@07:34 Req Phys: ISATU TODD Loc: 1S MED/12-09@11:26 Img Loc: XRAY (OOS) Service: [facility] MEDICINE (Case [id number] COMPLETE) BASW (MODIFIED) (RAD Detaile d) CPT:82329 Contrast Media : Barium Reason for Study: dysphagia ?esophageal spasm Clinical History: Report Status: Verified Date Reported: DEC 09, 2021 Date Verified: DEC 09, 2021 Technical Support Coordinator E-Sig:/ES/JESSIE CHENEY Report: BASPrincess (MODIFIED) , [...] REQUIRED Primary Interpreting Staff: JESSIE CHENEY, RADIOLOGIST (Technical Support Coordinator) /TLC Dec 06, 2021 12:[address] CHEST (INCLUDES ADRENALS): JESSIE CHENEY [facility] LUCAS MEEK N [id number] -1950 [facility] Ex[facility] Date: DEC 06, 2021@12:59 Req Phys: JELANI SÁNCHEZ Pat Loc: [facility] ED DAYS M 1RD (Req'g Loc) Img Loc: CT SCAN (OOS) Service: Unknown (Case [id number] COMPLETE) CT THORAX W/O CONT (CT Detai led) CPT:17267 Reason for Study: Opacification right chest Clinical History: No contrast allergy BUN: 13 (12/06/21 12:00) CREATI: 0.90 (12/06/21 12:00) eGFR 05/16/21 09:43 52 L Weight: 232.6 lb [105.51 kg] (12/06/2021 11:40) BODY MASS INDEX - NO HEIGHTS FOUND Pager number: [phone] STAT orders MUST be called t o RADIOLOGY [phone] to speak to the appropriate tissue recovery technician. Indications - Other: Opacification right chest, covid positive, lung cancer histo Report Status: Verified Date Reported: DEC 06, 2021 Date Verified: DEC 06, 2021 Technical Support Coordinator E-Sig:/ES/JESSIE CHENEY Report: CT THORAX W/O [...] REQUIRED Primary Interpreting Staff: JESSIE CHENEY, RADIOLOGIST (Technical Support Coordinator) Primary Interpreting Resident: PRINCE CHAMPION, Resident /BR Dec 06, 2021 11:58 AM CHEST SINGLE VIEW: JESSIE CHENEY LUCAS MEEK N [id number] -1950 M [facility] Exm Date: DEC 06, 2021@11:58 Req Phys: JELANI SÁNCHEZ Pat Loc: [facility] ED DAYS M 1RD (Req'g Loc) Img Loc: XRAY (OOS) Service: Unknown (Case [id number] COMPLETE) CHEST SINGLE VIEW (RAD Detai led) CPT:84812 Proc Modifiers : PORTABLE EXAM Reason for Study: SOB, home covid test positive Clinical History: Report Status: Verified Date Reported: DEC 06, 2021 Date Verified: DEC 06, 2021 Technical Support Coordinator E-Sig:/ES/JESSIE CHENEY Report: Exam type: Chest [...] REQUIRED Primary Interpreting Staff: JESSIE CHENEY, RADIOLOGIST (Technical Support Coordinator) /TLC Pathology Reports: +/- 30 days [...] [place] LOCAL TITLE: LR SURGICAL PATHOLOGY REPORT [facility] STANDARD TITLE: PATHOLOGY REPORT DATE OF NOTE: JAN 03, 2022@10:28:01 ENTRY DATE: JAN 03, 2022@10:28:01 AUTHOR: NIURKA MILLER EXP COSIGNER: URGENCY: STATUS: COMPLETED $APHDR Reporting Lab: [facility] [CLIA# [id number]] [address] [place] [address] - - - - - - [...] automatically d ocumented from SURGERY package case #[id number] Field (#32) PRINCIPAL PRE-OP DIAGNOSIS, (#.72) OTHER [...] automatically d ocumented from SURGERY package case #[id number] Field (#34) PRINCIPAL POST-OP DIAG, (#.74) OTHER [...] Label: Lucas Meek Paperwork: Lucas Meek Cassette: [id number];..;KALYANI;.;405;[id number] Specimen is labeled: ES bx Received in formalin are several pieces of pale boyd and brown tissue, 1.2 x 0.7 cm in aggregate. Submitted entirely in 1 cassette [id number];..;KALYANI;.;405;[id number] SAW 12/15/2021 Microscopic exam: *+* MODIFIED REPORT *+* (Last modified: JAN 03, 2022@09:30:20 typed by NIURKA WADDELL) DIAGNOSIS: A. 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 Kendell long. TIARA Coombs was notified on 12/21/21. Modified on 01/03/22 to include report from [facility] stating that tumor is NEGATIVE for her2/ matheus amplification. The attending pathologist who signature mansoor ears on this report has reviewed all diagnostic slides and has edited t he gross and/or microscopic portion of this report in rendering the final pathologic diagnosis. [address] [address] CPT: 92522 /emely/ NIURKA Yeung MD Signed Jan 03, 2022@10:28 Performing Laboratory: Surgical Pathology Report Performed By: [facility]TO[facility] [CLIA# [id number]] [address] [place] [address] $FTR - - - - - [...] - - LUCAS MEEK STANDARD FORM 515 ID:[id number] SEX:M :1950 AGE: 71 LOC: SDM END PCP: Isatu Todd /emely/ NIURKA MILLER Staff MD Signed: 01/03/2022 10:28 Dec 21, 2021 11:46 AM LR SURGICAL PATHOLOGY REPORT: STEFANY MILLER [place] LOCAL TITLE: LR SURGICAL PATHOLOGY REPORT [facility] STANDARD TITLE: PATHOLOGY REPORT DATE OF NOTE: DEC 21, 2021@11:46:59 ENTRY DATE: DEC 21, 2021@11:46:59 AUTHOR: NIURKA MILLER EXP COSIGNER: URGENCY: STATUS: COMPLETED $APHDR Reporting Lab: [facility] DO[facility] [CLIA# [id number]] [address] [place] [address] - - - - - - [...] automatically d ocumented from SURGERY package case #[id number] Field (#32) PRINCIPAL PRE-OP DIAGNOSIS, (#.72) OTHER [...] automatically d ocumented from SURGERY package case #[id number] Field (#34) PRINCIPAL POST-OP DIAG, (#.74) OTHER [...] Label: Lucas Meek Paperwork: Lucas Meek Cassette: [id number];..;KALYANI;.;405;[phone] Specimen is labeled: ES bx Received in formalin are several pieces of pale boyd and brown tissue, 1.2 x 0.7 cm in aggregate. Submitted entirely in 1 cassette [id number];..;KALYANI;.;405;[id number] SAW 12/15/2021 Microscopic exam: DIAGNOSIS: A. 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 Kendell long. TIARA Coombs was notified on 12/21/21. The attending pathologist who signature mansoor ears on this report has reviewed all diagnostic slides and has edited t he gross and/or microscopic portion of this report in rendering the final pathologic diagnosis. [address] [address] CPT: 79536 /emely/ NIURKA Yeung MD Signed Dec 21, 2021@11:46 Performing Laboratory: Surgical Pathology Report Performed By: [facility] [CLIA# [id number]] [address] [place] [address] $FTR - - - - - [...] - - LUCAS MEEK STANDARD FORM 515 ID:[id number] SEX:M :1950 AGE: 71 LOC: [facility] END PCP: Isatu Todd /emely/ NIURKA Yeung MD Signed: 12/21/2021 11:46 Dec 06, 2021 03:30 PM LR MICROBIOLOGY REPORT: [facility] Reporting Lab: [facility] [CLIA# [id number]] [address] [place] [address] Accession [UID]: [id number] [[id number]] Receiv ed: Dec 06, 2021@16:14 Collection sample: BLOOD CUL T BOTTLE(NIRMAL/AERO)Collection date: Dec 06, 2021 15:30 Site/Specimen: BLOOD Provider: JELANI SÁNCHEZ Comment on specimen: LAC Test(s) ordered: BLOOD CULTURE ANAEROBI C....... completed: Dec 12, 2021 06:18 * BACTERIOLOGY FINAL REPORT => Dec 12, 2021 06:1 8 TECH CODE: [id number] Bacteriology Remark(s): NO GROWTH IN 5 DAYS =--=--=--=--=--=--=--=--=--=--=--=--=--= --=--=--=--=--=--=--=--=--=--=--=--=-- Performing Laboratory: Bacteriology Report Performed By: [facility] [CLIA# [id number]] [address] [place] [address] Dec 06, 2021 03:30 PM LR MICROBIOLOGY REPORT: [facility] Reporting Lab: [facility] [CLIA# [id number]] [address] [place] [address] Accession [UID]: [id number] [[id number]] Receiv ed: Dec 06, 2021@16:14 Collection sample: BLOOD CUL T BOTTLE(NIRMAL/AERO)Collection date: Dec 06, 2021 15:30 Site/Specimen: BLOOD Provider: JELANI SÁNCHEZ Comment on specimen: LAC Test(s) ordered: BLOOD CULTURE AEROBIC. ........ completed: Dec 12, 2021 06:17 * BACTERIOLOGY FINAL REPORT => Dec 12, 2021 06:1 7 TECH CODE: [id number] Bacteriology Remark(s): NO GROWTH IN 5 DAYS =--=--=--=--=--=--=--=--=--=--=--=--=--= --=--=--=--=--=--=--=--=--=--=--=--=-- Performing Laboratory: Bacteriology Report Performed By: [facility] [CLIA# [id number]] [address] [place] [address]
--- OUTSIDE RECORDS SUMMARY | 2022-01-19 08:25 | XMS_ITS ---
DAILY HOSPITALIZATION DATA [facility] Encounter Summary Created on:December 08, 2021 Patient:LUCAS MEEK Sex:Male :1950 Author Organization [facility] Address [address] [place] [id number] Support Name Relationship Address Phone YUSRA MEEK Unavailable [address] [place] [place] [address] YUSRA MEEK Unavailable [address] [place] [facility] [place] [address] CLAY MOSLEY Unavailable Unavailable SJ SANTACRUZ Unavailable [...] MEDICARE MEDICARE PART Jun 18, PART A [id number] DO KALYANI PATIENT (WNR) (M) A 2016 13A 1 UGLAS MEDICARE MEDICARE PART Jun 18, PART A [id number] DO KALYANI PATIENT (WNR) (M) A 2017 VH81 2 LAS MEDICARE MEDICARE PART Jun 18, PART B [id number] DO KALYANI PATIENT (WNR) (M) B 2016 13A 1 UGLAS MEDICARE MEDICARE PART Jun 18, PART B [id number] DO KALYANI PATIENT (WNR) (M) B 2017 VH81 2 UGLAS UNITED MEDICARE MCR(Jun 18 [id number] Luz MEEK PATIENT HEALTHCARE ADVANTAGE NR) [address] [facility] (WNR) Selected Encounter This section includes the information on record at [place] for the Encounter. Date/Time Encounter Type Encounter Description Reason Provider Source Dec 08, 2021 08:02 Inpatient Visit DAILY HOSPITALIZATION DATA PM IHE [...] - [place] [facility] Jan 10, 2022 11:30 AM AMBULATORY - MEDICINE [facility] Jan 24, 2022 08:00 AM [facility] [place] [facility] [place] [facility] Feb 21, 2022 10:00 AM [place] [facility] Mar 21, 2022 10:30 AM AMBULATORY - [...] The data comes from all [place] treatment [facility]. Test Date/Time Test Type Test Details Facility Name October 31, 2021 07:37 AM Consult Order [facility]EGD [facility] Cons Foreign Student Adviser's Choice November 15, 2021 10:37 AM Consult Order [facility] CARE-PODIATRY Cons Foreign Student Adviser's Choice Dec 06, 2021 12:52 PM Pharmacy - [place] [facility] Dec 06, 2021 03:24 PM [facility] [place] [facility] [facility] Dec 06, 2021 03:40 PM [facility]acy [place] [facility] Dec 15, 2021 08:41 AM Consult Order [facility]ECH PATHOLOGY [place] Cons [facility] Foreign Student Adviser's Choice Jan 15, 2022 10:08 PM Consult Order [facility] CARE-PALLIATIVE CARE Cons Foreign Student Adviser's Choice Lab Results: +/- 30 days of [...] Reference Range Comment Dec 15, 2021 [place] P4 GLU,BUN,CREAT,LYTES,CA Speci men Type: PLASMA 06:43 AM [facility] Comment: Tests performed on [employer] (405) SN:[id number] Ordering Provid er: ISATU TODD Report Released Date/Time: Dec 11, 2021 07:42 AM Reporting Lab: [facility] T [facility] [address] [address] Performing Lab: [facility] [address] [address] UREA NITROGEN 9 7-25 SODIUM 137 135-145 POTASSIUM 3.8 3.5-5.0 CHLORIDE 105 100-110 CARBON DIOXIDE 26 20-30 ANION GAP 6 4-16 GLUCOSE 102 H 65-100 CREATININE 0.64 0.5-1.5 CALCIUM 8.1 L 8.5-10.5 eGFR(CKD-EPI 2020) >90.0 >60 Dec 15, 2021 06:43 AM [facility] CBC PROFILE Sp ecimen Type: BLOOD No comment enter ed. Ordering Provid er: ISATU TODD Report Released Date/Time: Dec 10, 2021 07:22 AM Reporting Lab: [facility] [address] [address] Performing Lab: [facility] [address] [address] WBC 5.7 4.5-11.0 RBC 4.22 L 4.23-5.66 [...] NRBC 0.00 0-0 Dec 14, 2021 [facility] CYTOGENETIC Specimen Type: ESOPHAGUS 02:59 PM [facility] Comment: ~For T est: [place]TOGENETIC FISH[place] ~FISH HER 2 NUE, FFPE See full report in [email or web address] Image display viewer/tab#LAB-Reference Ordering Provid er: NIURKA MILLER Report Released Date/Time: Dec 21, 2021 12:11 PM Reporting Lab: [facility] [address] [address] Performing Lab: [facility] CYTOGENETIC FISH[place] comment Dec 14, 2021 [facility] P4 GLU,BUN,CREAT,LYTES,CA Speci men Type: PLASMA 06:27 AM [facility] Comment: Tests performed on [employer] (405) SN:[id number] Ordering Provid er: ISATU TODD Report Released Date/Time: Dec 11, 2021 07:42 AM Reporting Lab: [facility] [address] [address] Performing Lab: [facility] [address] [facility] [address] UREA NITROGEN 10 7-25 SODIUM 137 135-145 POTASSIUM 4.0 3.5-5.0 CHLORIDE 104 100-110 CARBON DIOXIDE 25 20-30 ANION GAP 8 4-16 GLUCOSE 99 65-100 CREATININE 0.67 0.5-1.5 CALCIUM 8.2 L 8.5-10.5 eGFR(CKD-EPI 2020) >90.0 >60 Dec 14, 2021 06:27 AM [facility] Sp ecimen Type: BLOOD No comment enter ed. Ordering Provid er: ISATU TODD Report Released Date/Time: Dec 10, 2021 07:22 AM Reporting Lab: [facility] [address] [address] Performing Lab: [facility] [address] [address] WBC 6.0 4.5-11.0 RBC 4.29 4.23-5.66 HGB [...] 0.00 0-0 Dec 13, 2021 06:[address] [facility] CBC PROFILE Sp ecimen Type: BLOOD No comment enter ed. Ordering Provid er: ISATU TODD Report Released Date/Time: Dec 10, 2021 07:22 AM Reporting Lab: [facility] [address] [address] Performing Lab: [facility] [address] [address] WBC 5.6 4.5-11.0 RBC 4.28 4.23-5.66 HGB [...] NRBC 0.00 0-0 Dec 13, 2021 [facility] P4 GLU,BUN,CREAT,LYTES,CA Speci men Type: PLASMA 06:34 AM [facility] Comment: Tests performed on [employer] (405) SN:[id number] Ordering Provid er: ISATU TODD Report Released Date/Time: Dec 11, 2021 07:42 AM Reporting Lab: [facility] [address] [address] Performing Lab: [facility] [address] [address] UREA NITROGEN 12 7-25 SODIUM 136 135-145 POTASSIUM 3.9 3.5-5.0 CHLORIDE 105 100-110 CARBON DIOXIDE 24 20-30 ANION GAP 7 4-16 GLUCOSE 102 H 65-100 CREATININE 0.66 0.5-1.5 CALCIUM 8.3 L 8.5-10.5 eGFR(CKD-EPI 2020) >90.0 >60 Dec 12, 2021 [facility] GLU,BUN,CREAT,LYTES,CA Speci men Type: PLASMA 06:21 AM [facility] Comment: Tests performed on [employer] (405) SN:[id number] Ordering Provid er: ISATU TODD Report Released Date/Time: Dec 11, 2021 07:42 AM Reporting Lab: [facility] [address] [address] Performing Lab: [facility] [address] [address] UREA NITROGEN 11 7-25 SODIUM 139 135-145 POTASSIUM 4.1 3.5-5.0 CHLORIDE 107 100-110 CARBON DIOXIDE 24 20-30 ANION GAP 8 4-16 GLUCOSE 110 H 65-100 CREATININE 0.70 0.5-1.5 CALCIUM 8.3 L 8.5-10.5 eGFR(CKD-EPI 2020) >90.0 >60 Dec 12, 2021 06:21 AM [facility] CBC PROFILE Sp ecimen Type: BLOOD No comment enter ed. Ordering Provid er: ISATU TODD Report Released Date/Time: Dec 10, 2021 07:22 AM Reporting Lab: [facility] [address] [address] Performing Lab: [facility] [address] [address] WBC 5.5 4.5-11.0 RBC 4.37 4.23-5.66 HGB [...] 0.00 0-0 Dec 12, 2021 06:00 AM [facility] MAGNESIUM Sp ecimen Type: PLASMA Comment: Testin g Performed on [employer] (405) SN:[id number] Ordering Provid er: ISATU TODD Report Released Date/Time: Dec 12, 2021 08:24 AM Reporting Lab: [place] [facility] [address] [address] Performing Lab: [place] [facility] [address] [address] MAGNESIUM 1.8 1.6-2.6 Dec 12, 2021 06:00 AM [facility] PHOSPHORUS Sp ecimen Type: PLASMA Comment: Testin g Performed on [employer] (405) SN:[id number] Ordering Provid er: ISATU TODD Report Released Date/Time: Dec 12, 2021 08:24 AM Reporting Lab: [place] [facility] [address] [address] Performing Lab: [place] [facility] [address] [address] PHOSPHORUS 3.1 2.5-5.0 Dec 11, 2021 06:15 AM [place] [facility] ELECTROLYTES Sp ecimen Type: PLASMA Comment: Tests performed on [employer] (405) SN:[id number] Ordering Provid er: ISATU TODD Report Released Date/Time: Dec 10, 2021 07:22 AM Reporting Lab: [place] [facility] [address] [address] Performing Lab: [place] [facility] [address] [address] SODIUM 137 135-145 POTASSIUM 4.3 3.5-5.0 CHLORIDE 108 100-110 CARBON DIOXIDE 20 20-30 ANION GAP 9 4-16 Dec 11, 2021 06:15 AM [facility] CBC PROFILE Sp ecimen Type: BLOOD Comment: Result s checked Ordering Provid er: ISATU TODD Report Released Date/Time: Dec 10, 2021 07:22 AM Reporting Lab: [place] [facility] [address] [address] Performing Lab: [facility] [place] OMEGAT [facility] [address] [address] WBC 5.8 4.5-11.0 RBC 4.37 4.23-5.66 HGB [...] 0.00 0-0 Dec 11, 2021 06:00 AM [facility] PHOSPHORUS Sp ecimen Type: PLASMA Comment: Tests performed on [employer] (542) SN:[id number] Results checked Ordering Provid er: ISATU TODD Report Released Date/Time: Dec 11, 2021 07:44 AM Reporting Lab: [facility] [place] [facility] [address] [address] Performing Lab: [place] [facility] [address] [address] PHOSPHORUS 3.0 2.5-5.0 Dec 10, 2021 08:05 AM [place] [facility] MAGNESIUM Sp ecimen Type: PLASMA Comment: [place] [id number] on Dec 10, 2021@08:31 Tests performed on [employer] (405) SN:[id number] Ordering Provid er: ISATU TODD Report Released Date/Time: Dec 10, 2021 07:22 AM Reporting Lab: [place] [facility] [address] [place] [facility] [place] [place] [address] Performing Lab: [place] [facility] [address] [place] [facility] [place] [address] MAGNESIUM 1.7 1.6-2.6 Dec 10, 2021 08:05 AM [place] [facility] PHOSPHORUS Sp ecimen Type: PLASMA Comment: [place] [id number] on Dec 10, 2021@08:31 Tests performed on [employer] (405) SN:[id number] Ordering Provid er: ISATU TODD Report Released Date/Time: Dec 10, 2021 07:22 AM Reporting Lab: [place] [facility] [address] [place] [facility] [place] [place] [address] Performing Lab: [place] [facility] [address] [place] [facility] [place] [address] PHOSPHORUS 1.8 L 2.5-5.0 Dec 10, 2021 08:05 AM [place] UREA NITROGEN Specimen Type: PLASMA [facility] Comment: [place] [id number] on Dec 10, 2021@08:31 Tests performed on [employer] (405) SN:[id number] Ordering Provid er: ISATU TODD Report Released Date/Time: Dec 10, 2021 07:22 AM Reporting Lab: [place] [facility] [address] [place] [facility] [place] [place] [address] Performing Lab: [place] [facility] [address] [place] [facility] [place] [place] [address] UREA NITROGEN 8 7-25 Dec 10, 2021 08:05 AM [place] [facility] GLUCOSE Sp ecimen Type: PLASMA Comment: [place] [id number] on Dec 10, 2021@08:31 Tests performed on [employer] (405) SN:[id number] Ordering Provid er: ISATU TODD Report Released Date/Time: Dec 10, 2021 07:22 AM Reporting Lab: [place] [facility] [address] [address] Performing Lab: [place] [facility] [address] [address] GLUCOSE 144 H 65-100 Dec 10, 2021 08:05 AM [place] [facility] CALCIUM Sp ecimen Type: PLASMA Comment: [place] [id number] on Dec 10, 2021@08:31 Tests performed on [employer] (405) SN:[id number] Ordering Provid er: ISATU TODD Report Released Date/Time: Dec 10, 2021 07:22 AM Reporting Lab: [place] [facility] [address] [facility] [address] Performing Lab: [place] [facility] [address] [facility] [address] CALCIUM 8.3 L 8.5-10.5 Dec 10, 2021 08:05 AM [place] [facility] ELECTROLYTES Sp ecimen Type: PLASMA Comment: [place] [id number] on Dec 10, 2021@08:31 Tests performed on [employer] (405) SN:[id number] Ordering Provid er: ISATU TODD Report Released Date/Time: Dec 10, 2021 07:22 AM Reporting Lab: [place] [facility] [address] [address] Performing Lab: [place] [facility] [address] [address] SODIUM 139 135-145 POTASSIUM 3.7 3.5-5.0 CHLORIDE 107 100-110 CARBON DIOXIDE 24 20-30 ANION GAP 8 4-16 Dec 10, 2021 08:05 AM [place] [facility] CBC PROFILE Sp ecimen Type: BLOOD No comment enter ed. Ordering Provid er: ISATU TODD Report Released Date/Time: Dec 10, 2021 07:22 AM Reporting Lab: [place] [facility] [address] [facility] [address] Performing Lab: [place] [facility] [address] [address] WBC 7.0 4.5-11.0 RBC 4.54 4.23-5.66 HGB [...] PLASMA AM [facility] PANEL Comment: [place] [id number] on Dec 10, 2021@08:31 Tests performed on [employer] (405) SN:[id number] Ordering Provid er: ISATU TODD Report Released Date/Time: Dec 10, 2021 07:22 AM Reporting [facility]: [facility] [address] [address] Performing Lab: [facility] [address] [address] CREATININE 0.78 0.5-1.5 eGFR(CKD-EPI 2020) >90.0 >60 Dec 09, 2021 06:46 AM [place] [facility] MAGNESIUM Sp ecimen Type: PLASMA Comment: Tests performed on [employer] (405) SN:[id number] Ordering Provid er: ISATU TODD Report Released Date/Time: Dec 08, 2021 10:23 AM Reporting Lab: [place] [facility] [address] [address] Performing Lab: [place] [facility] [address] [address] MAGNESIUM 1.6 1.6-2.6 Dec 09, 2021 [facility] P4 GLU,BUN,CREAT,LYTES,CA Speci men Type: PLASMA 06:46 AM [facility] Comment: Tests performed on [employer] (405) SN:[id number] Ordering Provid er: ISATU TODD Report Released Date/Time: Dec 08, 2021 05:00 PM Reporting Lab: [facility] [address] [address] Performing Lab: [facility] [address] [address] UREA NITROGEN 6 L 7-25 SODIUM 134 L 135-145 POTASSIUM 3.7 3.5-5.0 CHLORIDE 103 100-110 CARBON DIOXIDE 23 20-30 ANION GAP 8 4-16 GLUCOSE 112 H 65-100 CREATININE 0.70 0.5-1.5 CALCIUM 8.1 L 8.5-10.5 eGFR(CKD-EPI 2020) >90.0 >60 Dec 09, 2021 06:46 AM [facility] CBC PROFILE Sp ecimen Type: BLOOD No comment enter ed. Ordering Provid er: ISATU TODD Report Released Date/Time: Dec 08, 2021 05:00 PM Reporting Lab: [facility] [address] [address] Performing Lab: [facility] [address] [address] WBC 7.1 4.5-11.0 RBC 4.40 4.23-5.66 HGB [...] 0-0 Dec 08, 2021 06:39 AM [facility] MAGNESIUM Sp ecimen Type: PLASMA Comment: Testin g Performed on [employer] (405) SN:[id number] Ordering Provid er: ISATU TODD Report Released Date/Time: Dec 07, 2021 10:32 AM Reporting Lab: [facility] [address] [address] Performing Lab: [facility] [address] [address] MAGNESIUM 1.5 L 1.6-2.6 Dec 08, 2021 06:39 AM [facility] CBC PROFILE Sp ecimen Type: BLOOD No comment enter ed. Ordering Provid er: ISATU TODD Report Released Date/Time: Dec 07, 2021 10:32 AM Reporting Lab: [facility] [address] [address] Performing Lab: [facility] [address] [address] WBC 8.4 4.5-11.0 RBC 4.75 4.23-5.66 HGB [...] ABSOLUTE NRBC 0.00 0-0 Dec 08, 2021 [facility] P4 GLU,BUN,CREAT,LYTES,CA Speci men Type: PLASMA 06:39 AM [facility] Comment: Testin g Performed on [employer] (405) SN:[id number] Ordering Provid er: ISATU TODD Report Released Date/Time: Dec 07, 2021 10:32 AM Reporting Lab: [facility] [address] [facility] [address] Per[facility]: [facility] [address] [facility] [address] UREA NITROGEN 6 L 7-25 SODIUM 136 135-145 POTASSIUM 3.3 L 3.5-5.0 CHLORIDE 104 100-110 CARBON DIOXIDE 22 20-30 ANION GAP 10 4-16 GLUCOSE 133 H 65-100 CREATININE 0.76 0.5-1.5 CALCIUM 8.4 L 8.5-10.5 eGFR(CKD-EPI 2020) >90.0 >60 Dec 07, 2021 [facility] P4 GLU,BUN,CREAT,LYTES,CA Speci men Type: PLASMA 06:42 AM [facility] Comment: Tests performed on [employer] (405) SN:[id number] Ordering Provid er: PORFIRIO WALTERS Report Released Date/Time: Dec 06, 2021 06:57 PM Reporting Lab: [place] [facility] [address] [address] Per[facility]: [facility] [address] [facility] [address] UREA NITROGEN 9 7-25 SODIUM 135 135-145 POTASSIUM 3.5 3.5-5.0 CHLORIDE 103 100-110 CARBON DIOXIDE 22 20-30 ANION GAP 10 4-16 GLUCOSE 92 65-100 CREATININE 0.73 0.5-1.5 CALCIUM 8.0 L 8.5-10.5 eGFR(CKD-EPI 2020) >90.0 >60 Dec 07, 2021 06:42 [place] LIVER PROFILE Specimen Typ e: PLASMA AM [facility] Comment: Tests performed on [employer] (405) SN:[id number] Ordering Provid er: PORFIRIO WALTERS Report Released Date/Time: Dec 06, 2021 06:57 PM Reporting Lab: [facility] [address] [facility] [address] Performing Lab: [facility] [address] [facility] [address] PROTEIN, TOTAL 5.7 L 6.0-8.5 ALBUMIN 2.4 L 3.2-5.0 BILIRUBIN, TOTAL 0.4 0.2-1.2 ALKALINE PHOSPHATASE 109 40-150 ALT(SGPT) 10 7-52 AST(SGOT) 15 5-34 FIB-4 SCORE 1.92 <2.67 Dec 07, 2021 06:[address] [facility] CBC PROFILE Specimen Type: BLOOD [facility] No comment enter ed. Ordering Provid er: PORFIRIO WALTERS Report Released Date/Time: Dec 06, 2021 06:57 PM Reporting Lab: [facility] [address] [address] Performing Lab: [facility] [address] [address] WBC 5.7 4.5-11.0 RBC 4.15 L 4.23-5.66 [...] [facility] %) AUTOMATED Comment: Tests performed on [employer] (405) SN:[id number] Ordering Provid er: ISATU TODD Report Released Date/Time: Dec 07, 2021 10:28 AM Reporting Lab: [place] [facility] [address] [address] Performing Lab: [place] [facility] [address] [address] RETICULOCYTES (%) AUTOMATED 1.23 0. 6-2.0 RETICULOCYTES (ABS) AUTOMATED 0.052 0.030-0.090 Dec 06, 2021 09:45 [place] MRSA SURVL NARES Specimen Ty pe: NARES PM [facility] DNA No comment enter ed. Ordering Provid er: ALVARO VARGHESE Report Released Date/Time: Dec 07, 2021 02:20 AM Reporting Lab: [place] [facility] [address] [facility] [address] Performing Lab: [place] [facility] [address] [facility] [address] MRSA SURVL NARES DNA NEGATIVE NEGATIVE Dec 06, 2021 06:00 [place] URINALYSIS W/REFLEX TO Speci men Type: URINE PM [facility] CULTURE No comment enter ed. Ordering Provid er: JELANI SÁNCHEZ Report Released Date/Time: Dec 06, 2021 11:57 AM Reporting Lab: [place] [facility] [address] [address] Performing Lab: [place] [facility] [address] [address] URINE COLOR Arlin YELLOW SPECIFIC GRAVITY 1.029 [...] 21, R[place] VARIANT Comment: https://www.cdc.gov/coronavirus/2019-ncov/cases-updates/variant- surveillance/variant-info.html The [employer] [address] SARS CoV 2 [employer] Research Assay-GX is a next-generation sequencing (NGS) assa 2021 [facility] SEQUENCING y that determine s the complete genome sequence of the SARS-CoV-2 virus. The assay contains variant-tolerant primers to broaden and improve the coverage for variant detection and increase the sensitivity 12:00 [facility] PNL(WH) of the panel to enable detection from lower viral titer samples. The assay is run on the [employer] Sequencer, which performs automated library preparation, sequencing, analysis, and reporting. PM The sequence an alysis includes determination of viral phylogenetic lineage by comparison to the reference strain Wuhan-Hu-1, GenBank: [id number]. Sequence determination may not be possible owing [...] and its performance characteristics determined by the [facility] Molecular Diagnostics Laboratory, which is certified under the Clinical Laboratory Improveme nt Amendments (C MARCO) as qualified to perform high complexity clinical laboratory testing. This test is validated for clinical use at [facility] and should not be regarded as investigational or for research. The FDA does not require this test to go through premarket FDA review, and therefore it has not been cleared or approved by the FDA. This report was reviewed and approved by the on-service pathologist. Ordering Provid er: JELANI SÁNCHEZ Report Released Date/Time: Dec 06, 2021 01:13 PM Reporting Lab: [facility] [address] [facility] [address] Performing Lab: [facility] [address] [facility] [address] SARS-CoV-2 CLADE() 22C (OMICRON) SARS-CoV-2 LINEAGE() BA.2.12.1 Dec 06, 2021 12:00 [facility] COVID-19 AG SCREEN Specimen Type: NASAL CAVITY PM [facility] PANEL [employer](405) Comment: Testi ng Performed By: Mike Briscoe Ordering Provid er: JELANI SÁNCHEZ Report Released Date/Time: Dec 08, 2021 08:23 AM Reporting Lab: [facility] [address] [facility] [address] Per[facility]: [facility] [address] [address] COVID-19 AG SCRN(wrj BINAX) POSITIVE HH NE G Dec 06, 2021 12:00 PM [facility] TROPONIN II Sp ecimen Type: PLASMA Comment: Tests performed on [employer] (405) SN:[id number] Ordering Provid er: JELANI SÁNCHEZ Report Released Date/Time: Dec 06, 2021 11:57 AM Reporting Lab: [facility] [address] [facility] [address] Performing Lab: [facility] [address] [facility] [address] TROPONIN II 0.03 0.00-0.29 Dec 06, 2021 [place] P4 GLU,BUN,CREAT,LYTES,CA Speci men Type: PLASMA 12:00 PM [facility] Comment: Testin g Performed on [employer] (405) SN:[id number] Ordering Provid er: JELANI SÁNCHEZ Report Released Date/Time: Dec 06, 2021 11:57 AM Reporting Lab: [place] [facility] [address] [facility] [address] Performing Lab: [place] [facility] [address] [facility] [address] UREA NITROGEN 13 7-25 SODIUM 138 135-145 POTASSIUM 3.8 3.5-5.0 CHLORIDE 103 100-110 CARBON DIOXIDE 23 20-30 ANION GAP 12 4-16 GLUCOSE 105 H 65-100 CREATININE 0.90 0.5-1.5 CALCIUM 8.7 8.5-10.5 eGFR(CKD-EPI 2020) >90.0 >60 Dec 06, 2021 12:00 PM [facility] Sp ecimen Type: PLASMA Comment: Testin g Performed on [employer] Tarring Machine Operator (405) [id number] Ordering Provid er: JELANI SÁNCHEZ Report Released Date/Time: Dec 06, 2021 11:57 AM Reporting [facility] [address] [address] Performing Lab: [facility] [address] [address] PROTEIN, TOTAL 6.6 6.0-8.5 ALBUMIN 2.8 L 3.2-5.0 BILIRUBIN, TOTAL 0.6 0.2-1.2 ALKALINE PHOSPHATASE 134 40-150 ALT(SGPT) 13 7-52 AST(SGOT) 18 5-34 FIB-4 SCORE 1.94 <2.67 Dec 06, 2021 12:00 PM [facility] B[facility](P[facility] Sp ecimen Type: PLASMA Comment: Tests performed on Pham Tarring Machine Operator (405) [id number] Ordering Provid er: JELANI SÁNCHEZ Report Released Date/Time: Dec 06, 2021 11:57 AM Reporting Lab: [facility] [address] [address] [facility]: [facility] [address] [address] BNP(P) 224.8 H 10-100 Dec 06, 2021 [facility] COVID-[facility]+FLU/RSV DIAGNOSTIC Spe cimen Type: NASOPHARYNX 12:00 PM [facility] PANEL(405) Comment: Tests performed on [employer] Genexpert (405) Critical results called to and read back by: ALESHIA WILKINSON RN 12/06/21 @ 1312 Ordering Provid er: JELANI SÁNCHEZ Report Released Date/Time: Dec 06, 2021 11:57 AM Reporting [facility] [address] [facility] [address] Performing Lab: [facility] [address] [facility] [address] FLU A(PCR) NEGATIVE NEGATIVE FLU B(PCR) NEGATIVE NEGATIVE RSV(PCR) NEGATIVE NEGATIVE COVID-19(FFD-[id number]) DETECTED HH NO T DETECTED Dec 06, 2021 12:00 PM [facility] Sp ecimen Type: BLOOD No comment enter ed. Ordering Provid er: JELANI SÁNCHEZ Report Released Date/Time: Dec 06, 2021 11:57 AM Reporting Lab: [facility] [address] [facility] [address] Performing Lab: [facility] [address] [facility] [address] WBC 7.2 4.5-11.0 RBC 4.86 4.23-5.66 HGB [...] 0 2021 11:30 /min mm[Hg] [place] [facility] Dec 08, 99.2 F 94 126/76 18 /min 98 % 0 2021 02:15 /min mm[Hg] [facility] Dec 08, 0 2021 10:37 [place] [facility] Dec 08, 97.5 F 106 122/76 16 /min 97 % 0 [place] 2021 05:55 /min mm[Hg] [facility] Dec 08, 0 2021 03:52 [place] [facility] Social History: Smoking Status (Most current) and [...] QUIT TOBACCO USE > 7 YEARS AGO [facility] Tobacco Use History This section includes a history of the smoking, or tobacco- related health factors, that were collected on or before the date of the Encounter. The data comes from the [place] facility where the Encounter took place. Date/Time Smoking Status/Tobacco Use Comment [facility] Apr 01, 2020 01:16 PM QUIT TOBACCO USE 1-7 YEARS AGO [facility] Mar 24, 2020 03:00 PM QUIT TOBACCO USE 1-7 YEARS AGO [facility] Feb 21, 2019 04:11 PM QUIT TOBACCO USE 1-7 YEARS AGO [facility] Feb 20, 2019 03:38 PM QUIT TOBACCO USE 1-7 YEARS AGO [facility] Feb 03, 2019 09:50 AM QUIT TOBACCO USE 1-7 YEARS AGO [facility] May 25, 2016 11:53 PM QUIT TOBACCO USE IN PAST YEAR [facility] May 23, 2016 06:57 PM QUIT TOBACCO USE > 7 YEARS AGO [facility] May 19, 2016 03:55 PM QUIT TOBACCO USE IN PAST YEAR [facility] May 19, 2016 10:29 AM QUIT TOBACCO USE 1-7 YEARS AGO [facility] May 01, 2016 07:26 PM QUIT TOBACCO USE IN PAST YEAR [facility] May 01, 2016 03:11 PM QUIT TOBACCO USE IN PAST YEAR [facility] DO[facility] May 01, 2016 11:19 AM QUIT TOBACCO USE IN PAST YEAR [facility] Mar 16, 2016 12:50 PM V1-PT DECLINES REF TO TOBACCO [facility] CESS PRGM Mar 16, 2016 12:50 PM V1-PT THINKING ABOUT QUIT [facility] DOYLE [facility] TOBACCO USE Aug 12, 2015 08:48 AM CURRENT SMOKER [facility] Yates [facility] Radiology Reports: +/- 30 days of the [...] W/WO CONTRAST: MARYELLEN LONG LUCAS LARES N [id number] -1950 [facility] Exm Date: DEC 13, 2021@12:57 Req Phys: ISATU TODD Loc: OP Unknown/0 12-15-2021@13:20 Img Loc: MRI IMAGING (OOS) Service: [facility] (Case [id number] COMPLETE) MRI ABDOMEN W/WO CONTRAST (M RI Detailed) CPT:51327 Reason for Study: further characterization of a [...] new lyphadenopathy REQUESTING MD: Isatu Todd PAGER: [phone] PHONE: [phone] Weight: 232.2 lb [105.32 kg] (12/12/2021 05:00) [...] 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 driver to take him/her home after the [...] 15, 2021 Date Verified: DEC 15, 2021 Dairy Science Teacher E-Sig:/ES/MARYELLEN LONG Report: MRI ABDOMEN W/WO CONTRAST [...] MALIGNANCY Primary Interpreting Staff: Staff AMELIA THOMAS (Dairy Science Teacher) / Dec 10, 2021 09:[address] ABDOMEN & PELVIS: RADIOLOGY,OUTSIDE [facility] LUCAS MEEK N [id number] -1950 [facility] Exm Date: DEC 10, 2021@09:30 Req Phys: ISATU TODD Loc: 1S MED/12-10@10:57 Img Loc: CT SCAN (OOS) Service: [facility] (Case [id number] COMPLETE) CT ABD & PELVIS WITHOUT CONT RAST (CT Detailed) CPT:52039 Reason for Study: 71 yo male with [...] INDEX - NO HEIGHTS FOUND Pager number: [phone] STAT orders MUST be call ed to RADIOLOGY [phone] to speak to the appropriate apprentice instrument technician. Report Status: Verified Date Reported: DEC 10, 2021 Date Verified: DEC 10, 2021 Dairy Science Teacher E-Sig: Report: EXAM: CT abdomen and pelvis [...] ph nodes. READING PHYSICIAN: Ramone Munoz D.O. -[phone] 12/10/2021 10:55 EDT [facility] National Teleradiology Program [phone] (For Medical Practitioner Use Only ) [address], [facility] [address], [address] [place] [address] Attention Patients / Veterans: If you have ques tions or concerns about these test results, please contact your o rdering provider or primary care team. Primary Diagnostic Code: SIGNIFICANT ABNORMALIT Y, ATTN NEEDED Primary Interpreting Staff: RADIOLOGY,OUTSIDE SERVICE, Staff Physician / Dec 09, 2021 07:34 AM BASW (MODIFIED): JESSIE CHENEY [facility] LUCAS MEEK N [id number] -1950 [facility] Exm Date: DEC 09, 2021@07:34 Req Phys: ISATU TODD Loc: 1S MED/12-09@11:26 Img Loc: XRAY (OOS) Service: [facility] (Case [id number] COMPLETE) BASW (MODIFIED) (RAD Detaile d) CPT:45938 Contrast Media : Barium Reason for Study: dysphagia ?esophageal spasm Clinical History: Report Status: Verified Date Reported: DEC 09, 2021 Date Verified: DEC 09, 2021 Dairy Science Teacher E-Sig:/ES/JESSIE CHENEY Report: BASPrincess (MODIFIED) , 12/09/2021 [...] REQUIRED Primary Interpreting Staff: JESSIE CHENEY, RADIOLOGIST (Dairy Science Teacher) /TLC Dec 06, 2021 12:[address] CHEST (INCLUDES ADRENALS): JESSIE CHENEY [facility] LUCAS MEEK N [id number] -1950 [facility] Exm Date: DEC 06, 2021@12:59 Req Phys: JELANI SÁNCHEZ Pat Loc: [facility] ED DAYS M 1RD (Req'g Loc) Img Loc: CT SCAN (OOS) Service: Unknown (Case [id number] COMPLETE) CT THORAX W/O CONT (CT Detai led) CPT:36839 Reason for Study: Opacification right chest Clinical History: No contrast allergy BUN: 13 (12/06/21 12:00) CREATI: 0.90 (12/06/21 12:00) eGFR 05/16/21 09:43 52 L Weight: 232.6 lb [105.51 kg] (12/06/2021 11:40) BODY MASS INDEX - NO HEIGHTS FOUND Pager number: [phone] STAT orders MUST be called t o RADIOLOGY [phone] to speak to the appropriate apprentice instrument technician. Indications - Other: Opacification right chest, covid positive, lung cancer histo Report Status: Verified Date Reported: DEC 06, 2021 Date Verified: DEC 06, 2021 Dairy Science Teacher E-Sig:/ES/JESSIE CHENEY Report: CT THORAX W/O CONT [...] REQUIRED Primary Interpreting Staff: JESSIE CHENEY, RADIOLOGIST (Dairy Science Teacher) Primary Interpreting Resident: PRINCE CHAMPION, Resident /BR Dec 06, 2021 11:58 AM CHEST SINGLE VIEW: JESSIE CHENEY LUCAS MEEK N [id number] -1950 [facility] Exm Date: DEC 06, 2021@11:58 Req Phys: JELANI SÁNCHEZ Pat Loc: [facility] ED DAYS M 1RD (Req'g Loc) Img Loc: XRAY (OOS) Service: Unknown (Case [id number] COMPLETE) CHEST SINGLE VIEW (RAD Detai led) CPT:24571 Proc Modifiers : PORTABLE EXAM Reason for Study: SOB, home covid test positive Clinical History: Report Status: Verified Date Reported: DEC 06, 2021 Date Verified: DEC 06, 2021 Dairy Science Teacher E-Sig:/ES/JESSIE CHENEY Report: Exam type: Chest x-ray [...] REQUIRED Primary Interpreting Staff: JESSIE CHENEY, RADIOLOGIST (Dairy Science Teacher) /TLC Pathology Reports: +/- 30 days of [...] [place] LOCAL TITLE: LR SURGICAL PATHOLOGY REPORT [facility] STANDARD TITLE: PATHOLOGY REPORT DATE OF NOTE: JAN 03, 2022@10:28:01 ENTRY DATE: JAN 03, 2022@10:28:01 AUTHOR: NIURKA MILLER EXP COSIGNER: URGENCY: STATUS: COMPLETED $APHDR Reporting Lab: [facility] [CLIA# [id number]] [address] [place] [address] - - - - - - [...] automatically d ocumented from SURGERY package case #[id number] Field (#32) PRINCIPAL PRE-OP DIAGNOSIS, (#.72) OTHER [...] automatically d ocumented from SURGERY package case #[id number] Field (#34) PRINCIPAL POST-OP DIAG, (#.74) OTHER [...] Label: Lucas Meek Paperwork: Lucas Meek Cassette: [id number];..;KALYANI;.;405;[id number] Specimen is labeled: ES bx Received in formalin are several pieces of pale boyd and brown tissue, 1.2 x 0.7 cm in aggregate. Submitted entirely in 1 cassette [id number];..;KALYANI;.;405;[id number] SAW 12/15/2021 Microscopic exam: *+* MODIFIED REPORT [...] report in rendering the final pathologic diagnosis. [address] [address] CPT: 85843 /emely/ NIURKA Yeung MD Signed Jan 03, 2022@10:28 Performing Laboratory: Surgical Pathology Report Performed By: [facility] [CLIA# [id number]] [address] [place] [address] $FTR - - - - - [...] - - LUCAS MEEK STANDARD FORM 515 ID:[id number] SEX:M :1950 AGE: 71 LOC: SDM END PCP: Isatu Todd /emely/ NIURKA MILLER Staff MD Signed: 01/03/2022 10:28 Dec 21, 2021 11:46 AM LR SURGICAL PATHOLOGY REPORT: STEFANY MILLER [place] LOCAL TITLE: LR SURGICAL PATHOLOGY REPORT [facility] STANDARD TITLE: PATHOLOGY REPORT DATE OF NOTE: DEC 21, 2021@11:46:59 ENTRY DATE: DEC 21, 2021@11:46:59 AUTHOR: NIURKA MILLRE EXP COSIGNER: URGENCY: STATUS: COMPLETED $APHDR Reporting Lab: [facility] [CLIA# [id number]] [address] [place] [address] - - - - - - [...] automatically d ocumented from SURGERY package case #[id number] Field (#32) PRINCIPAL PRE-OP DIAGNOSIS, (#.72) OTHER [...] automatically d ocumented from SURGERY package case #[id number] Field (#34) PRINCIPAL POST-OP DIAG, (#.74) OTHER [...] Label: Lucas Meek Paperwork: Lucas Meek Cassette: [id number];..;KALYANI;.;405;[phone] Specimen is labeled: ES bx Received in formalin are several pieces of pale boyd and brown tissue, 1.2 x 0.7 cm in aggregate. Submitted entirely in 1 cassette [id number];..;KALYANI;.;405;[id number] SAW 12/15/2021 Microscopic exam: DIAGNOSIS: A. 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 Kendell long. TIARA Coombs was notified on 12/21/21. The attending pathologist who signature mansoor ears on this report has reviewed all diagnostic slides and has edited t he gross and/or microscopic portion of this report in rendering the final pathologic diagnosis. [address] [address] CPT: 50309 /emely/ NIURKA Yeung MD Signed Dec 21, 2021@11:46 Performing Laboratory: Surgical Pathology Report Performed By: [facility] [CLIA# [id number]] [address] [place] [address] $FTR - - - - - [...] - - LUCAS MEEK STANDARD FORM 515 ID:[id number] SEX:M :1950 AGE: 71 LOC: [facility] END PCP: Isatu Todd /emely/ NIURKA Yeung MD Signed: 12/21/2021 11:46 Dec 06, 2021 03:30 PM LR MICROBIOLOGY REPORT: [facility] Reporting Lab: [facility] [CLIA# [id number]] [address] [place] [address] Accession [UID]: [id number] [[id number]] Receiv ed: Dec 06, 2021@16:14 Collection sample: BLOOD CUL T BOTTLE(NIRMAL/AERO)Collection date: Dec 06, 2021 15:30 Site/Specimen: BLOOD Provider: JELANI SÁNCHEZ Comment on specimen: LAC Test(s) ordered: BLOOD CULTURE ANAEROBI C....... completed: Dec 12, 2021 06:18 * BACTERIOLOGY FINAL REPORT => Dec 12, 2021 06:1 8 TECH CODE: [id number] Bacteriology Remark(s): NO GROWTH IN 5 DAYS =--=--=--=--=--=--=--=--=--=--=--=--=--= --=--=--=--=--=--=--=--=--=--=--=--=-- Performing Laboratory: Bacteriology Report Performed By: [facility] [CLIA# [id number]] [address] [place] [address] Dec 06, 2021 03:30 PM LR MICROBIOLOGY REPORT: [facility] Reporting Lab: [facility] [CLIA# [id number]] [address] [place] [address] Accession [UID]: [id number] [[id number]] Receiv ed: Dec 06, 2021@16:14 Collection sample: BLOOD CUL T BOTTLE(NIRMAL/AERO)Collection date: Dec 06, 2021 15:30 Site/Specimen: BLOOD Provider: JELANI SÁNCHEZ Comment on specimen: LAC Test(s) ordered: BLOOD CULTURE AEROBIC. ........ completed: Dec 12, 2021 06:17 * BACTERIOLOGY FINAL REPORT => Dec 12, 2021 06:1 7 TECH CODE: [id number] Bacteriology Remark(s): NO GROWTH IN 5 DAYS =--=--=--=--=--=--=--=--=--=--=--=--=--= --=--=--=--=--=--=--=--=--=--=--=--=-- Performing Laboratory: Bacteriology Report Performed By: [facility] [CLIA# [id number]] [address] [place] [address]
--- OUTSIDE RECORDS SUMMARY | 2022-01-19 08:26 | XMS_ITS ---
DAILY HOSPITALIZATION DATA [facility] Encounter Summary Created on:December 08, 2021 Patient:LUCAS MEEK Sex:Male :1950 Author Organization [facility] Address [address] [place] [id number] Support Name Relationship Address Phone YUSRA MEEK Unavailable [address] [place] [address] YUSRA MEEK Unavailable [address] [place] [facility] [place] [address] CLAY MOSLEY Unavailable Unavailable SJ SANTACRUZ Unavailable [...] MEDICARE MEDICARE PART Jun 18, PART A [id number] DO KALYNAI PATIENT (WNR) (M) A 2016 13A 1 UGLAS MEDICARE MEDICARE PART Jun 18, PART A [id number] DO KALYANI PATIENT (WNR) (M) A 2017 VH81 2 LAS MEDICARE MEDICARE PART Jun 18, PART B [id number] DO KALYANI PATIENT (WNR) (M) B 2016 13A 1 UGLAS MEDICARE MEDICARE PART Jun 18, PART B [id number] DO KALYANI PATIENT (WNR) (M) B 2017 VH81 2 UGLAS UNITED MEDICARE MCR(Jun 18 [id number] Luz MEEK PATIENT HEALTHCARE ADVANTAGE NR) 2021 37 0 [facility] (WNR[facility] Selected Encounter This section includes the information on record at DC for the Encounter. Date/Time Encounter Type Encounter Description Reason Provider Source Dec 08, 2021 11:30 Inpatient Visit DAILY HOSPITALIZATION DATA PM E Encounter Template Text not used by DC [...] AMBULATORY - NONE [place] [facility] Jan 06, 2022 02:00 PM [place] [facility] Jan 10, 2022 11:30 AM AMBULATORY - MEDICINE [facility] Jan 24, 2022 08:00 AM [place] [facility] Feb 21, 2022 10:00 AM [place] [facility] Mar 21, 2022 10:30 AM AMBULATORY [...] The data comes from all DC treatment [facility]. Test Date/Time Test Type Test Details Facility Name October 31, 2021 07:37 AM Consult Order [facility]-EGD [facility] Cons [facility] November 15, 2021 10:37 AM Consult Order [facility] CARE-PODIATRY Cons [place] [facility] [facility] Dec 06, 2021 12:52 PM Pharmacy [...] [place] OUTPATIENT Cons [facility] Jan 15, 2022 10:08 PM Consult Order [facility] CARE-PALLIATIVE CARE Cons [place] [facility] Lab Results: +/- 30 days of [...] Reference Range Comment Dec 15, 2021 [place] P4 GLU,BUN,CREAT,LYTES,CA Speci men Type: PLASMA 06:43 AM [facility] Comment: Tests performed on IBUonline (405) SN:[id number] Ordering Provid er: ISATU TODD Report Released Date/Time: Dec 11, 2021 07:42 AM Reporting Lab: [facility] [address] [facility] [address] Performing Lab: [facility] [address] [facility] [address] UREA NITROGEN 9 7-25 SODIUM 137 135-145 POTASSIUM 3.8 3.5-5.0 CHLORIDE 105 100-110 CARBON DIOXIDE 26 20-30 ANION GAP 6 4-16 GLUCOSE 102 H 65-100 CREATININE 0.64 0.5-1.5 CALCIUM 8.1 L 8.5-10.5 eGFR(CKD-EPI 2020) >90.0 >60 Dec 15, 2021 06:43 AM [facility] CBC PROFILE Sp ecimen Type: BLOOD No comment enter ed. Ordering Provid er: ISATU TODD Report Released Date/Time: Dec 10, 2021 07:22 AM Reporting Lab: [facility] [address] [facility] [address] Performing Lab: [facility] [address] [facility] [address] WBC 5.7 4.5-11.0 RBC 4.22 L 4.23-5.66 [...] ABSOLUTE NRBC 0.00 0-0 Dec 14, 2021 [facility] CYTOGENETIC Specimen Type: ESOPHAGUS 02:59 PM VAOC FISH([facility]) Comment: ~For T est: CYTOGENETIC FISH([facility]) ~FISH HER 2 NUE, FFPE See full report in Linkpass Image display viewer/tab#LAB-Reference Ordering Provid er: NIURKA MILLER Report Released Date/Time: Dec 21, 2021 12:11 PM Reporting Lab: [facility] [address] [facility] [address] Performing Lab: [facility] CYTOGENETIC FISH([facility]) comment Dec 14, 2021 [facility] P4 GLU,BUN,CREAT,LYTES,CA Speci men Type: PLASMA 06:[address] [facility] Comment: Tests performed on IBUonline (405) SN:[id number] Ordering Provid er: ISATU TODD Report Released Date/Time: Dec 11, 2021 07:42 AM Reporting Lab: [facility] [address] [facility] [address] Performing Lab: [facility] [address] [facility] [address] UREA NITROGEN 10 7-25 SODIUM 137 135-145 POTASSIUM 4.0 3.5-5.0 CHLORIDE 104 100-110 CARBON DIOXIDE 25 20-30 ANION GAP 8 4-16 GLUCOSE 99 65-100 CREATININE 0.67 0.5-1.5 CALCIUM 8.2 L 8.5-10.5 eGFR(CKD-EPI 2020) >90.0 >60 Dec 14, 2021 06:27 AM [facility] CBC PROFILE Sp ecimen Type: BLOOD No comment enter ed. Ordering Provid er: ISATU TODD Report Released Date/Time: Dec 10, 2021 07:22 AM Reporting Lab: [facility] [address] [facility] [address] Performing Lab: [facility] [address] [facility] [address] WBC 6.0 4.5-11.0 RBC 4.29 4.23-5.66 HGB [...] ABSOLUTE NRBC 0.00 0-0 Dec 13, 2021 [facility] P4 GLU,BUN,CREAT,LYTES,CA Speci men Type: PLASMA 06:[address] [facility] Comment: Tests performed on IBUonline (405) SN:[id number] Ordering Provid er: ISATU TODD Report Released Date/Time: Dec 11, 2021 07:42 AM Reporting Lab: [facility] [address] [facility] [address] Per[facility]: [facility] [address] [facility] [address] UREA NITROGEN 12 7-25 SODIUM 136 135-145 POTASSIUM 3.9 3.5-5.0 CHLORIDE 105 100-110 CARBON DIOXIDE 24 20-30 ANION GAP 7 4-16 GLUCOSE 102 H 65-100 CREATININE 0.66 0.5-1.5 CALCIUM 8.3 L 8.5-10.5 eGFR(CKD-EPI 2020) >90.0 >60 Dec 13, 2021 06:34 AM [facility] CBC PROFILE Sp ecimen Type: BLOOD No comment enter ed. Ordering Provid er: ISATU TODD Report Released Date/Time: Dec 10, 2021 07:22 AM Reporting Lab: [facility] [address] [facility] [address] Performing Lab: [facility] [address] [facility] [address] WBC 5.6 4.5-11.0 RBC 4.28 4.23-5.66 HGB [...] ABSOLUTE NRBC 0.00 0-0 Dec 12, 2021 [facility] P4 GLU,BUN,CREAT,LYTES,CA Speci men Type: PLASMA 06:[address] [facility] Comment: Tests performed on IBUonline (405) SN:[id number] Ordering Provid er: ISATU TODD Report Released Date/Time: Dec 11, 2021 07:42 AM Reporting Lab: [facility] [address] [facility] [address] Performing Lab: [facility] [address] [facility] [address] UREA NITROGEN 11 7-25 SODIUM 139 135-145 POTASSIUM 4.1 3.5-5.0 CHLORIDE 107 100-110 CARBON DIOXIDE 24 20-30 ANION GAP 8 4-16 GLUCOSE 110 H 65-100 CREATININE 0.70 0.5-1.5 CALCIUM 8.3 L 8.5-10.5 eGFR(CKD-EPI 2020) >90.0 >60 Dec 12, 2021 06:21 AM [facility] CBC PROFILE Sp ecimen Type: BLOOD No comment enter ed. Ordering Provid er: ISATU TODD Report Released Date/Time: Dec 10, 2021 07:22 AM Reporting Lab: [facility] [address] [facility] [address] Performing Lab: [facility] [address] [facility] [address] WBC 5.5 4.5-11.0 RBC 4.37 4.23-5.66 HGB [...] 0.00 0-0 Dec 12, 2021 06:00 AM [facility] PHOSPHORUS Sp ecimen Type: PLASMA Comment: Testin g Performed on IBUonline (405) SN:[id number] Ordering Provid er: ISATU TODD Report Released Date/Time: Dec 12, 2021 08:24 AM Reporting Lab: [place] [facility] [address] [facility] [address] Performing Lab: [employer] [place] [facility] [address] [facility] [facility] [address] PHOSPHORUS 3.1 2.5-5.0 Dec 12, 2021 06:00 AM [facility] MAGNESIUM Sp ecimen Type: PLASMA Comment: Testin g Performed on IBUonline (405) SN:[id number] Ordering Provid er: ISATU TODD Report Released Date/Time: Dec 12, 2021 08:24 AM Reporting Lab: [place] [facility] [address] [facility] [address] Performing Lab: [place] [facility] [address] [facility] [address] MAGNESIUM 1.8 1.6-2.6 Dec 11, 2021 06:15 AM [facility] [employer] ELECTROLYTES Sp ecimen Type: PLASMA Comment: Tests performed on IBUonline (405) SN:[id number] Ordering Provid er: ISATU TODD Report Released Date/Time: Dec 10, 2021 07:22 AM Reporting Lab: [place] [facility] [address] [facility] [address] Performing Lab: [place] [facility] [address] [facility] [address] SODIUM 137 135-145 POTASSIUM 4.3 3.5-5.0 CHLORIDE 108 100-110 CARBON DIOXIDE 20 20-30 ANION GAP 9 4-16 Dec 11, 2021 06:15 AM [place] [employer]T [facility] CBC PROFILE Sp ecimen Type: BLOOD Comment: Result s checked Ordering Provid er: ISATU TODD Report Released Date/Time: Dec 10, 2021 07:22 AM Reporting Lab: [place] [facility] [address] [facility] [address] Performing Lab: [facility] [facility] [address] [facility] [address] WBC 5.8 4.5-11.0 RBC 4.37 4.23-5.66 HGB [...] 0.00 0-0 Dec 11, 2021 06:00 AM [facility] PHOSPHORUS Sp ecimen Type: PLASMA Comment: Tests performed on IBUonline (141) SN:[id number] Results checked Ordering Provid er: ISATU TODD Report Released Date/Time: Dec 11, 2021 07:44 AM Reporting Lab: [facility] [facility] [address] [facility] [address] Performing Lab: [place] [facility] [address] [facility] [address] PHOSPHORUS 3.0 2.5-5.0 Dec 10, 2021 08:05 AM [place] [facility] PHOSPHORUS Sp ecimen Type: PLASMA Comment: [place] [id number] on Dec 10, 2021@08:31 Tests performed on IBUonline (405) SN:[id number] Ordering Provid er: ISATU TODD Report Released Date/Time: Dec 10, 2021 07:22 AM Reporting Lab: [place] [facility] [address] [facility] [address] Performing Lab: [place] [facility] [address] [facility] [place] [address] PHOSPHORUS 1.8 L 2.5-5.0 Dec 10, 2021 08:05 AM [place] UREA NITROGEN Specimen Type: PLASMA [facility] Comment: [place] [id number] on Dec 10, 2021@08:31 Tests performed on IBUonline (405) SN:[id number] Ordering Provid er: ISATU TODD Report Released Date/Time: Dec 10, 2021 07:22 AM Reporting Lab: [place] [facility] [address] [facility] [place] [address] Performing Lab: [place] [facility] [address] [facility] [place] [address] UREA NITROGEN 8 7-25 Dec 10, 2021 08:05 AM [place] [facility] MAGNESIUM Sp ecimen Type: PLASMA Comment: Added by Ligia on Dec 10, 2021@08:31 Tests performed on IBUonline (405) SN:[id number] Ordering Provid er: ISATU TODD Report Released Date/Time: Dec 10, 2021 07:22 AM Reporting Lab: [place] [facility] [address] [facility] [place] [address] Performing Lab: [place] [facility] [address] [facility] [place] [address] MAGNESIUM 1.7 1.6-2.6 Dec 10, 2021 08:05 AM [place] [facility] GLUCOSE Sp ecimen Type: PLASMA Comment: [place] [id number] on Dec 10, 2021@08:31 Tests performed on IBUonline (405) SN:[id number] Ordering Provid er: ISATU TODD Report Released Date/Time: Dec 10, 2021 07:22 AM Reporting Lab: [place] [facility] [address] [facility] [address] Performing Lab: [place] [facility] [address] [facility] [address] GLUCOSE 144 H 65-100 Dec 10, 2021 08:05 AM [place] [facility] ELECTROLYTES Sp ecimen Type: PLASMA Comment: [place] [id number] on Dec 10, 2021@08:31 Tests performed on IBUonline (405) SN:[id number] Ordering Provid er: ISATU TODD Report Released Date/Time: Dec 10, 2021 07:22 AM Reporting Lab: [place] [facility] [address] [facility] [address] Performing Lab: [place] [facility] [address] [facility] [address] SODIUM 139 135-145 POTASSIUM 3.7 3.5-5.0 CHLORIDE 107 100-110 CARBON DIOXIDE 24 20-30 ANION GAP 8 4-16 Dec 10, 2021 08:05 AM [place] [facility] CALCIUM Sp ecimen Type: PLASMA Comment: [place] [id number] on Dec 10, 2021@08:31 Tests performed on IBUonline (405) SN:[id number] Ordering Provid er: ISATU TODD Report Released Date/Time: Dec 10, 2021 07:22 AM Reporting Lab: [place] [facility] [address] [facility] [address] Performing Lab: [place] [facility] [address] [facility] [address] CALCIUM 8.3 L 8.5-10.5 Dec 10, 2021 08:05 AM [place] [facility] CBC PROFILE Sp ecimen Type: BLOOD No comment enter ed. Ordering Provid er: ISATU TODD Report Released Date/Time: Dec 10, 2021 07:22 AM Reporting Lab: [place] [facility] [address] [facility] [address] Performing Lab: [place] [facility] [address] [facility] [address] WBC 7.0 4.5-11.0 RBC 4.54 4.23-5.66 HGB [...] PLASMA AM [facility] PANEL [place]: [place] [id number] on Dec 10, 2021@08:31 Tests performed on IBUonline (405) SN:[id number] Ordering Provid er: ISATU TODD Report Released Date/Time: Dec 10, 2021 07:22 AM Reporting Lab: [facility] [address] [facility] [address] Performing Lab: [facility] [address] [facility] [address] CREATININE 0.78 0.5-1.5 eGFR(CKD-EPI 2020) >90.0 >60 Dec 09, 2021 06:46 AM [place] [facility] MAGNESIUM Sp ecimen Type: PLASMA Comment: Tests performed on IBUonline (405) SN:[id number] Ordering Provid er: ISATU TODD Report Released Date/Time: Dec 08, 2021 10:23 AM Reporting Lab: [place] T [facility] [address] [facility] [address] Performing Lab: [place] [facility] [address] [facility] [address] MAGNESIUM 1.6 1.6-2.6 Dec 09, 2021 [facility] P4 GLU,BUN,CREAT,LYTES,CA Speci men Type: PLASMA 06:[address] [facility] Comment: Tests performed on IBUonline (405) SN:[id number] Ordering Provid er: ISATU TODD Report Released Date/Time: Dec 08, 2021 05:00 PM Reporting Lab: [facility] [address] [facility] [address] Performing Lab: [facility] [address] [facility] [address] UREA NITROGEN 6 L 7-25 SODIUM 134 L 135-145 POTASSIUM 3.7 3.5-5.0 CHLORIDE 103 100-110 CARBON DIOXIDE 23 20-30 ANION GAP 8 4-16 GLUCOSE 112 H 65-100 CREATININE 0.70 0.5-1.5 CALCIUM 8.1 L 8.5-10.5 eGFR(CKD-EPI 2020) >90.0 >60 Dec 09, 2021 06:46 AM [facility] CBC PROFILE Sp ecimen Type: BLOOD No comment enter ed. Ordering Provid er: ISATU TODD Report Released Date/Time: Dec 08, 2021 05:00 PM Reporting Lab: [facility] [address] [facility] [address] Performing Lab: [facility] [address] [facility] [address] WBC 7.1 4.5-11.0 RBC 4.40 4.23-5.66 HGB [...] 0.00 0-0 Dec 08, 2021 06:39 AM [place] [email or web address] T [facility] MAGNESIUM Sp ecimen Type: PLASMA Comment: Testin g Performed on IBUonline (405) SN:[id number] Ordering Provid er: ISATU TODD Report Released Date/Time: Dec 07, 2021 10:32 AM Reporting Lab: [facility] [address] [facility] [address] Performing Lab: [facility] [address] [facility] [address] MAGNESIUM 1.5 L 1.6-2.6 Dec 08, 2021 [place] [email or web address] T P4 GLU,BUN,CREAT,LYTES,CA Speci men Type: PLASMA 06:39 AM [facility] Comment: Testin g Performed on IBUonline (405) SN:[id number] Ordering Provid er: ISATU TODD Report Released Date/Time: Dec 07, 2021 10:32 AM Reporting Lab: [employer] T [facility] [address] [facility] [address] Performing Lab: [facility] [address] [facility] [address] UREA NITROGEN 6 L 7-25 SODIUM 136 135-145 POTASSIUM 3.3 L 3.5-5.0 CHLORIDE 104 100-110 CARBON DIOXIDE 22 20-30 ANION GAP 10 4-16 GLUCOSE 133 H 65-100 CREATININE 0.76 0.5-1.5 CALCIUM 8.4 L 8.5-10.5 eGFR(CKD-EPI 2020) >90.0 >60 Dec 08, 2021 06:39 AM [place] [email or web address] T [facility] CBC PROFILE Sp ecimen Type: BLOOD No comment enter ed. Ordering Provid er: ISATU TODD Report Released Date/Time: Dec 07, 2021 10:32 AM Reporting Lab: [facility] [address] [facility] [address] Performing Lab: [facility] [address] [facility] [address] WBC 8.4 4.5-11.0 RBC 4.75 4.23-5.66 HGB [...] ABSOLUTE NRBC 0.00 0-0 Dec 07, 2021 [facility] P4 GLU,BUN,CREAT,LYTES,CA Speci men Type: PLASMA 06:[address] [facility] Comment: Tests performed on IBUonline (405 SN:[id number] Ordering Provid er: PORFIRIO WALTERS Report Released Date/Time: Dec 06, 2021 06:57 PM Reporting Lab: [facility] [address] [facility] [address] Performing Lab: [facility] [address] [facility] [address] UREA NITROGEN 9 7-25 SODIUM 135 135-145 POTASSIUM 3.5 3.5-5.0 CHLORIDE 103 100-110 CARBON DIOXIDE 22 20-30 ANION GAP 10 4-16 GLUCOSE 92 65-100 CREATININE 0.73 0.5-1.5 CALCIUM 8.0 L 8.5-10.5 eGFR(CKD-EPI 2020) >90.0 >60 Dec 07, 2021 06:42 [place] LIVER PROFILE Specimen Typ e: PLASMA AM [facility] Comment: Tests performed on [employer] Evidence Specialist (405) SN:[id number] Ordering Provid er: PORFIRIO WALTERS Report Released Date/Time: Dec 06, 2021 06:57 PM Reporting Lab: [facility] [address] [facility] [address] Performing Lab: [facility] [address] [facility] [address] PROTEIN, TOTAL 5.7 L 6.0-8.5 ALBUMIN 2.4 L 3.2-5.0 BILIRUBIN, TOTAL 0.4 0.2-1.2 ALKALINE PHOSPHATASE 109 40-150 ALT(SGPT) 10 7-52 AST(SGOT) 15 5-34 FIB-4 SCORE 1.92 <2.67 Dec 07, 2021 06:42 AM [facility] CBC PROFILE Specimen Type: BLOOD [facility] No comment enter ed. Ordering Provid er: PORFIRIO WALTERS Report Released Date/Time: Dec 06, 2021 06:57 PM Reporting Lab: [facility] [address] [facility] [address] Performing Lab: [facility] [address] [facility] [facility] [address] WBC 5.7 4.5-11.0 RBC 4.15 L 4.23-5.66 [...] VAM[facility] %) AUTOMATED Comment: Tests performed on IBUonline (405) SN:[id number] Ordering Provid er: ISATU TODD Report Released Date/Time: Dec 07, 2021 10:28 AM Reporting Lab: [place] [facility] [address] [facility] [address] Performing Lab: [place] [facility] [address] [facility] [address] RETICULOCYTES (%) AUTOMATED 1.23 0. 6-2.0 RETICULOCYTES (ABS) AUTOMATED 0.052 0.030-0.090 Dec 06, 2021 09:45 [place] MRSA SURVL NARES Specimen Ty pe: NARES PM [facility] DNA No comment enter ed. Ordering Provid er: ALVARO VARGHESE Report Released Date/Time: Dec 07, 2021 02:20 AM Reporting Lab: [place] [facility] [address] [facility] [address] Performing Lab: [place] [facility] [address] [facility] [address] MRSA SURVL NARES DNA NEGATIVE NEGATIVE Dec 06, 2021 06:00 [place] URINALYSIS W/REFLEX TO Speci men Type: URINE PM [facility] CULTURE No comment enter ed. Ordering Provid er: JELANI SÁNCHEZ Report Released Date/Time: Dec 06, 2021 11:57 AM Reporting Lab: [place] [facility] [address] [facility] [address] Performing Lab: [place] [facility] [address] [facility] [address] URINE COLOR Arlin YELLOW SPECIFIC GRAVITY 1.029 [...] 21, RIVER VARIANT Comment: https://www.cdc.gov/coronavirus/2019-ncov/cases-updates/variant- surveillance/variant-info.html The Poshly SARS CoV 2 Chance (app) Research Assay-GX is a next-generation sequencing (NGS) [...] samples. The assay is run on the Tinkercad Sequencer, which performs automated library preparation, sequencing, analysis, and reporting. PM The sequence an alysis includes determination of viral phylogenetic lineage by comparison to the reference strain Wuhan-Hu-1, GenBank: [id number]. Sequence determination may not be possible owing [...] and its performance characteristics determined by the [facility] Molecular Diagnostics Laboratory, which is certified under the Clinical Laboratory Improveme nt Amendments (C MARCO) as qualified to perform high complexity clinical laboratory testing. This test is validated for clinical use at [facility] and should not be regarded as investigational or for research. The FDA does not require this test to go through premarket FDA review, and therefore it has not been cleared or approved by the FDA. This report was reviewed and approved by the on-service pathologist. Ordering Provid er: JELANI SÁNCHEZ Report Released Date/Time: Dec 06, 2021 01:13 PM Reporting Lab: [facility] [address] [facility] [address] Performing Lab: [facility] [address] [facility] [address] SARS-CoV-2 CLADE() 22C (OMICRON) SARS-CoV-2 LINEAGE() BA.2.12.1 Dec 06, 2021 12:00 [facility] COVID-19 AG SCREEN Specimen Type: NASAL CAVITY PM [facility] PANEL BINAX(405) Comment: Testi ng Performed By: Mike Briscoe Ordering Provid er: JELANI SÁNCHEZ Report Released Date/Time: Dec 08, 2021 08:23 AM Reporting Lab: [facility] [address] [facility] [address] Performing Lab: [facility] [address] [facility] [address] COVID-19 AG SCRN(wrj BINAX) POSITIVE HH NE G Dec 06, 2021 12:00 PM [facility] LIVER PROFILE Sp ecimen Type: PLASMA Comment: Testin g Performed on [employer] Evidence Specialist (405) SN:[id number] Ordering Provid er: JELANI SÁNCHEZ Report Released Date/Time: Dec 06, 2021 11:57 AM Reporting Lab: [facility] [address] [facility] [address] Performing Lab: [facility] [address] [facility] [address] PROTEIN, TOTAL 6.6 6.0-8.5 ALBUMIN 2.8 L 3.2-5.0 BILIRUBIN, TOTAL 0.6 0.2-1.2 ALKALINE PHOSPHATASE 134 40-150 ALT(SGPT) 13 7-52 AST(SGOT) 18 5-34 FIB-4 SCORE 1.94 <2.67 Dec 06, 2021 [facility] GLU,BUN,CREAT,LYTES,CA Speci men Type: PLASMA 12:00 PM [facility] Comment: Testin g Performed on [employer] Evidence Specialist (405) SN:[id number] Ordering Provid er: JELANI SÁNCHEZ Report Released Date/Time: Dec 06, 2021 11:57 AM Reporting Lab: [place] [facility] [address] [facility] [address] Performing Lab: [facility] [place] [facility] [address] [facility] [address] UREA NITROGEN 13 7-25 SODIUM 138 135-145 POTASSIUM 3.8 3.5-5.0 CHLORIDE 103 100-110 CARBON DIOXIDE 23 20-30 ANION GAP 12 4-16 GLUCOSE 105 H 65-100 CREATININE 0.90 0.5-1.5 CALCIUM 8.7 8.5-10.5 eGFR(CKD-EPI 2020) >90.0 >60 Dec 06, 2021 12:00 PM [facility] TROPONIN II Sp ecimen Type: PLASMA Comment: Tests performed on Ph[employer] Evidence Specialist (405) SN:[id number] Ordering Provid er: JELANI SÁNCHEZ Report Released Date/Time: Dec 06, 2021 11:57 AM Reporting Lab: [facility] T [facility] [address] [facility] [address] Performing Lab: [facility] [address] [facility] [address] TROPONIN II 0.03 0.00-0.29 Dec 06, 2021 12:00 PM [facility] BNP(P) Sp ecimen Type: PLASMA Comment: Tests performed on [employer] Evidence Specialist (405) SN:[id number] Ordering Provid er: JELANI SÁNCHEZ Report Released Date/Time: Dec 06, 2021 11:57 AM Reporting Lab: [facility] [address] [facility] [address] Performing Lab: [facility] [address] [facility] [address] BNP(P) 224.8 H 10-100 Dec 06, 2021 [facility] [place] COVID-19+FLU/RSV DIAGNOSTIC Spe cimen Type: NASOPHARYNX 12:00 PM [facility] PANEL(405) Comment: Tests performed on [employer] Gen[employer]pert (405) Critical results called to and read back by: ALESHIA WILKINSON RN 12/06/21 @ 1312 Ordering Provid er: JELANI SÁNCHEZ Report Released Date/Time: Dec 06, 2021 11:57 AM Reporting Lab: [facility] [address] [facility] [address] Performing Lab: [place] [facility] [address] [facility] [address] FLU A(PCR) NEGATIVE NEGATIVE FLU B(PCR) NEGATIVE NEGATIVE RSV(PCR) NEGATIVE NEGATIVE COVID-19([id number]) DETECTED HH NO T DETECTED Dec 06, 2021 12:[facility] Sp ecimen Type: BLOOD No comment enter ed. Ordering Provid er: JELANI SÁNCHEZ Report Released Date/Time: Dec 06, 2021 11:57 AM Reporting Lab: [facility] [address] [facility] [facility] [address] Performing Lab: [facility] [address] [facility] [address] WBC 7.2 4.5-11.0 RBC 4.86 4.23-5.66 HGB [...] 0 2021 11:30 /min mm[Hg] [facility] Dec 08, 99.2 F 94 126/76 18 /min 98 % 0 2021 02:15 /min mm[Hg] [facility] Dec 08, 0 2021 10:37 [facility] Dec 08, 97.5 F 106 122/76 16 /min 97 % 0 [place] 2021 05:55 /min mm[Hg] [facility] Dec 08, 0 2021 03:52 [facility] Social History: Smoking Status (Most current) and [...] QUIT TOBACCO USE > 7 YEARS AGO [facility] Tobacco Use History This section includes a history of the smoking, or tobacco- related health factors, that were collected on or before the date of the Encounter. The data comes from the [place] facility where the Encounter took place. Date/Time Smoking Status/Tobacco Use Comment [facility] Apr 01, 2020 01:16 PM QUIT TOBACCO USE 1-7 YEARS AGO [facility] Mar 24, 2020 03:00 PM QUIT TOBACCO USE 1-7 YEARS AGO [facility] Feb 21, 2019 04:11 PM QUIT TOBACCO USE 1-7 YEARS AGO [facility] Feb 20, 2019 03:38 PM QUIT TOBACCO USE 1-7 YEARS AGO [facility] Feb 03, 2019 09:50 AM QUIT TOBACCO USE 1-7 YEARS AGO [facility] May 25, 2016 11:53 PM QUIT TOBACCO USE IN PAST YEAR [facility] May 23, 2016 06:57 PM QUIT TOBACCO USE > 7 YEARS AGO [facility] May 19, 2016 03:55 PM QUIT TOBACCO USE IN PAST YEAR [facility] May 19, 2016 10:29 AM QUIT TOBACCO USE 1-7 YEARS AGO [facility] May 01, 2016 07:26 PM QUIT TOBACCO USE IN PAST YEAR CAREY DOYLE [facility] May 01, 2016 03:11 PM QUIT TOBACCO USE IN PAST YEAR [facility]AREY DOYLE [facility] May 01, 2016 11:19 AM QUIT TOBACCO USE IN PAST YEAR CAREY DOYLE [facility] Mar 16, 2016 12:50 PM V1-PT DECLINES REF TO TOBACCO CAREY DOYLE [place] CESS PRGM Mar 16, 2016 12:50 PM V1-PT THINKING ABOUT QUIT CAREY DOYLE [facility] TOBACCO USE Aug 12, 2015 08:48 AM CURRENT SMOKER CAREY Yates [facility] Radiology Reports: +/- 30 days of the [...] W/WO CONTRAST: MARYELLEN LONG LUCAS LARES N [id number] -1950 [facility] Exm Date: DEC 13, 2021@12:57 Req Phys: ISATU TODD Loc: OP Unknown/0 12-15-2021@13:20 Img Loc: MRI IMAGING (OOS) Service: [facility] (Case [id number] COMPLETE) MRI ABDOMEN W/WO CONTRAST (M RI Detailed) CPT:25267 Reason for Study: further characterization of a [...] new lyphadenopathy REQUESTING MD: Isatu Todd PAGER: [phone] PHONE: [phone] Weight: 232.2 lb [105.32 kg] (12/12/2021 05:00) [...] patient will need to arrange for a retail delivery driver to take him/her home after the [...] 15, 2021 Date Verified: DEC 15, 2021 Model And Pattern Supervisor E-Sig:/ES/MARYELLEN LONG Report: MRI ABDOMEN W/WO CONTRAST [...] MALIGNANCY Primary Interpreting Staff: Staff AMELIA THOMAS (Model And Pattern Supervisor) / Dec 10, 2021 09:[address] ABDOMEN & PELVIS: RADIOLOGY,OUTSIDE [facility] LUCAS MEEK N [id number] -[address] [facility] Exm Date: DEC 10, 2021@09:30 Req Phys: ISATU TODD Loc: 1S MED/12-10@10:57 Img Loc: CT SCAN (OOS) Service: [facility] (Case [id number] COMPLETE) CT ABD & PELVIS WITHOUT CONT RAST (CT Detailed) CPT:58218 Reason for Study: 71 yo male with [...] INDEX - NO HEIGHTS FOUND Pager number: [phone] STAT orders MUST be call ed to RADIOLOGY [phone] to speak to the appropriate counter intelligence technician. Report Status: Verified Date Reported: DEC 10, 2021 Date Verified: DEC 10, 2021 Model And Pattern Supervisor E-Sig: Report: EXAM: CT abdomen and pelvis [...] ph nodes. READING PHYSICIAN: Ramone Munoz D.O. [phone] 12/10/2021 10:55 EDT [facility] National Teleradiology Program [phone] (For Medical Practitioner Use Only ) [address], [facility] [address] [place] [address] Attention Patients / Veterans: If you have ques tions or concerns about these test results, please contact your o rdering provider or primary care team. Primary Diagnostic Code: SIGNIFICANT ABNORMALIT Y, ATTN NEEDED Primary Interpreting Staff: RADIOLOGY,OUTSIDE SERVICE, Staff Physician / Dec 09, 2021 07:34 AM BASW (MODIFIED): JESSIE CHENEY [facility] LUCAS MEEK N [id number] -1950 [facility] Exm Date: DEC 09, 2021@07:34 Req Phys: ISATU TODD Loc: 1S MED/12-09@11:26 Img Loc: XRAY (OOS) Service: [facility] (Case [id number] COMPLETE) BASW (MODIFIED) (RAD Detaile d) CPT:29730 Contrast Media : Barium Reason for Study: dysphagia ?esophageal spasm Clinical History: Report Status: Verified Date Reported: DEC 09, 2021 Date Verified: DEC 09, 2021 Model And Pattern Supervisor E-Sig:/ES/JESSIE CHENEY Report: BASPrincess (MODIFIED) , 12/09/2021 [...] REQUIRED Primary Interpreting Staff: JESSIE CHENEY, RADIOLOGIST (Model And Pattern Supervisor) /TLC Dec 06, 2021 12:[address] CHEST (INCLUDES ADRENALS): JESSIE CHENEY [facility] LUCAS MEEK N [id number] -1950 [facility] Exm Date: DEC 06, 2021@12:59 Req Phys: JELANI SÁNCHEZ Pat Loc: [facility] ED DAYS M 1RD (Req'g Loc) Img Loc: CT SCAN (OOS) Service: Unknown (Case [id number] COMPLETE) CT THORAX W/O CONT (CT Detai led) CPT:40034 Reason for Study: Opacification right chest Clinical History: No contrast allergy BUN: 13 (12/06/21 12:00) CREATI: 0.90 (12/06/21 12:00) eGFR 05/16/21 09:43 52 L Weight: 232.6 lb [105.51 kg] (12/06/2021 11:40) BODY MASS INDEX - NO HEIGHTS FOUND Pager number: [phone] STAT orders MUST be called t o RADIOLOGY [phone] to speak to the appropriate counter intelligence technician. Indications - Other: Opacification right chest, covid positive, lung cancer histo Report Status: Verified Date Reported: DEC 06, 2021 Date Verified: DEC 06, 2021 Model And Pattern Supervisor E-Sig:/ES/JESSIE CHENEY Report: CT THORAX W/O CONT [...] REQUIRED Primary Interpreting Staff: JESSIE CHENEY, RADIOLOGIST (Model And Pattern Supervisor) Primary Interpreting Resident: PRINCE CHAMPION, Resident /BR Dec 06, 2021 11:58 AM CHEST SINGLE VIEW: JESSIE HCENEY LUCAS MEEK N [id number] -1950 M [facility] Exm Date: DEC 06, 2021@11:58 Req Phys: JELANI SÁNCHEZ Pat Loc: [facility] ED DAYS M 1RD (Req'g Loc) Img Loc: XRAY (OOS) Service: Unknown (Case [id number] COMPLETE) CHEST SINGLE VIEW (RAD Detai led) CPT:32190 Proc Modifiers : PORTABLE EXAM Reason for Study: SOB, home covid test positive Clinical History: Report Status: Verified Date Reported: DEC 06, 2021 Date Verified: DEC 06, 2021 Model And Pattern Supervisor E-Sig:/ES/JESSIE CHENEY Report: Exam type: Chest x-ray [...] REQUIRED Primary Interpreting Staff: JESSIE CHENEY, RADIOLOGIST (Model And Pattern Supervisor) /TLC Pathology Reports: +/- 30 days of [...] COMPLETED $APHDR Reporting Lab: CAREY DOYLE [facility] [CLIA# [id number]] [address] [place] [address] - - - - - - [...] automatically d ocumented from SURGERY package case #[id number] Field (#32) PRINCIPAL PRE-OP DIAGNOSIS, (#.72) OTHER [...] automatically d ocumented from SURGERY package case #[id number] Field (#34) PRINCIPAL POST-OP DIAG, (#.74) OTHER [...] Label: Lucas Meek Paperwork: Lucas Meek Cassette: [id number];..;KALYANI;.;405;[phone] Specimen is labeled: ES bx Received in formalin are several pieces of pale boyd and brown tissue, 1.2 x 0.7 cm in aggregate. Submitted entirely in 1 cassette [id number];..;KALYANI;.;405;[id number] SAW 12/15/2021 Microscopic exam: *+* MODIFIED REPORT *+* (Last modified: JAN 03, 2022@09:30:20 typed by NIURKA WADDELL) DIAGNOSIS: A. 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 Kendell long. TIARA Coombs was notified on 12/21/21. Modified on 01/03/22 to include report from [facility] stating that tumor is NEGATIVE for her2/ matheus amplification. The attending pathologist who signature mansoor ears on this report has reviewed all diagnostic slides and has edited t he gross and/or microscopic portion of this report in rendering the final pathologic diagnosis. [address] [address] CPT: 30999 /emely/ NIURKA Yeung MD Signed Jan 03, 2022@10:28 Performing Laboratory: Surgical Pathology Report Performed By: CAREY MONTOYA [facility] [CLIA# [id number]] [address] [place] [address] $FTR - - - - - [...] - - LUCAS MEEK STANDARD FORM 515 ID:[id number] SEX:M :1950 AGE: 71 LOC: SDM END [...] COMPLETED $APHDR Reporting Lab: CAREY DOYLE [facility] [CLIA# [id number]] [address] [place] [address] - - - - - - [...] automatically d ocumented from SURGERY package case #[id number] Field (#32) PRINCIPAL PRE-OP DIAGNOSIS, (#.72) OTHER [...] automatically d ocumented from SURGERY package case #[id number] Field (#34) PRINCIPAL POST-OP DIAG, (#.74) OTHER [...] Label: Lucas Meek Paperwork: Lucas Meek Cassette: [id number];..;KALYANI;.;405;[phone] Specimen is labeled: ES bx Received in formalin are several pieces of pale boyd and brown tissue, 1.2 x 0.7 cm in aggregate. Submitted entirely in 1 cassette [id number];..;KALYANI;.;405;[id number] SAW 12/15/2021 Microscopic exam: DIAGNOSIS: A. 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 Kendell long. TIARA Coombs was notified on 12/21/21. The attending pathologist who signature mansoor ears on this report has reviewed all diagnostic slides and has edited t he gross and/or microscopic portion of this report in rendering the final pathologic diagnosis. [address] [address] CPT: 84592 /emely/ NIURKA Yeung MD Signed Dec 21, 2021@11:46 Performing Laboratory: Surgical Pathology Report Performed By: [facility] [CLIA# [id number]] [address] [place] [address] $FTR - - - - - [...] - - LUCAS MEEK STANDARD FORM 515 ID:[id number] SEX:M :1950 AGE: 71 LOC: [facility] END PCP: Isatu Todd /emely/ NIURKA Yeung MD Signed: 12/21/2021 11:46 Dec 06, 2021 03:30 PM LR MICROBIOLOGY REPORT: [facility] Reporting Lab: [facility] [CLIA# [id number]] [address] [place] [address] Accession [UID]: [id number] [[id number]] Receiv ed: Dec 06, 2021@16:14 Collection sample: BLOOD CUL T BOTTLE(NIRMAL/AERO)Collection date: Dec 06, 2021 15:30 Site/Specimen: BLOOD Provider: JELANI SÁNCHEZ Comment on specimen: LAC Test(s) ordered: BLOOD CULTURE ANAEROBI C....... completed: Dec 12, 2021 06:18 * BACTERIOLOGY FINAL REPORT => Dec 12, 2021 06:1 8 TECH CODE: [id number] Bacteriology Remark(s): NO GROWTH IN 5 DAYS =--=--=--=--=--=--=--=--=--=--=--=--=--= --=--=--=--=--=--=--=--=--=--=--=--=-- Performing Laboratory: Bacteriology Report Performed By: [facility] [CLIA# [id number]] [address] [place] [address] Dec 06, 2021 03:30 PM LR MICROBIOLOGY REPORT: [facility] Reporting Lab: [facility] [CLIA# [id number]] [address] [place] [address] Accession [UID]: [id number] [[id number]] Receiv ed: Dec 06, 2021@16:14 Collection sample: BLOOD CUL T BOTTLE(NIRMAL/AERO)Collection date: Dec 06, 2021 15:30 Site/Specimen: BLOOD Provider: JELANI SÁNCHEZ Comment on specimen: LAC Test(s) ordered: BLOOD CULTURE AEROBIC. ........ completed: Dec 12, 2021 06:17 * BACTERIOLOGY FINAL REPORT => Dec 12, 2021 06:1 7 TECH CODE: [id number] Bacteriology Remark(s): NO GROWTH IN 5 DAYS =--=--=--=--=--=--=--=--=--=--=--=--=--= --=--=--=--=--=--=--=--=--=--=--=--=-- Performing Laboratory: Bacteriology Report Performed By: [facility] [CLIA# [id number]] [address] [place] [address]
--- OUTSIDE RECORDS SUMMARY | 2022-01-19 08:27 | XMS_ITS ---
DAILY HOSPITALIZATION DATA [facility] Encounter Summary Created on:December 09, 2021 Patient:LUCAS MEEK Sex:Male :1950 Author Organization [facility] Address [address] [place] [id number] Support Name Relationship Address Phone YUSRA MEEK Unavailable [address] [place] [address] YUSRA MEEK Unavailable [address] [place] [facility] [place] [address] CLAY MOSLEY Unavailable Unavailable SJ SANTACRUZ Unavailable Unavailable Insurance Providers: All historical and current Section Date Range: From patient's date of to the date document was created.This section includes the names of all active insurance providers for the patient. Insurance Type of Plan Start of End of Group Member Insurance Policy P atient's Provider Coverage Name Policy Policy Number ID Provider's Baarca's Relationship Coverage Coverage Telephone Name to Policy Number [place] MEDICARE MEDICARE PART Jun 18, PART A [id number] DO KALYANI PATIENT (WNR) (M) A 2016 13A 1 [place] MEDICARE MEDICARE PART Jun 18, PART B [id number] DO KALYANI PATIENT (WNR) (M) B 2016 13A 1 [place] MEDICARE MEDICARE PART Jun 18, PART A [id number] KALYANIDO PATIENT (WNR) (M) A 2017 VH81 2 [place] MEDICARE MEDICARE PART Jun 18, PART B [id number] DO KALYANI PATIENT (WNR) (M) B 2017 VH81 2 [place]AS UNITED MEDICARE MCR(Jun [id number] Luz MEEK PATIENT HEALTHCARE ADVANTAGE NR) 2021 37 0 [facility] (WNR) Selected Encounter This section includes the information on [place] at [place] for the Encounter. Date/Time Encounter Type Encounter Description Reason Provider Source Dec 09, 2021 11:42 Inpatient Visit DAILY HOSPITALIZATION DATA AM [facility] Encounter Template Text not used by [place] [...] AM AMBUL[place]ORY - NONE [place] [facility] Jan 06, 2022 02:00 PM [place] [facility] Jan 10, 2022 11:30 AM [facility] - MEDICINE [facility] Jan 24, 2022 08:00 [place] [facility] Feb 21, 2022 10:00 AM [place] [facility] Mar 21, [...] The data comes from all [place] treatment [facility]. Test Date/Time Test Type Test Details Facility Name October 31, 2021 07:37 AM Consult Order COMMUNITY CARE-EGD [facility] Cons Cloth Covered Helmet Puller's Choice November 15, 2021 10:37 AM Consult Order [facility] Cons Cloth Covered Helmet Puller's Choice Dec 06, 2021 12:52 PM Pharmacy [place] In[place] [facility] Dec 06, 2021 03:24 PM Pharmacy - [place] [facility] Dec 06, 2021 03:40 PM Pharmacy [place] [facility] Dec 15, 2021 08:41 AM Consult Order SPEECH PATHOLOGY [place] OUTPAT[place] Cons [facility] Cloth Covered Helmet Puller's Choice Jan 15, 2022 10:08 PM Consult Order [facility] CARE-PALLIATIVE CARE Cons Cloth Covered Helmet Puller's Choice Lab Results: +/- 30 days of [...] Reference Range Comment Dec 15, 2021 [place] P4 GLU,BUN,CREAT,LYTES,CA Speci men Type: PLASMA 06:43 AM [facility] Comment: Tests performed on [employer] (405) SN:[id number] Ordering Provid er: ISATU TODD Report Released Date/Time: Dec 11, 2021 07:42 AM Reporting Lab: [facility] T [facility] [address] [facility] [address] Performing Lab: [facility] [address] [facility] [address] UREA NITROGEN 9 7-25 SODIUM 137 135-145 POTASSIUM 3.8 3.5-5.0 CHLORIDE 105 100-110 CARBON DIOXIDE 26 20-30 ANION GAP 6 4-16 GLUCOSE 102 H 65-100 CREATININE 0.64 0.5-1.5 CALCIUM 8.1 L 8.5-10.5 eGFR(CKD-EPI 2020) >90.0 >60 Dec 15, 2021 06:43 AM [facility] CBC PROFILE Sp ecimen Type: BLOOD No comment enter ed. Ordering Provid er: ISATU TODD Report Released Date/Time: Dec 10, 2021 07:22 AM Reporting Lab: [facility] [address] [facility] [address] Performing Lab: [facility] [address] [facility] [address] WBC 5.7 4.5-11.0 RBC 4.22 L 4.23-5.66 [...] ABSOLUTE NRBC 0.00 0-0 Dec 14, 2021 [facility] CYTOGENETIC Specimen Type: ESOPHAGUS 02:59 PM [facility] Comment: ~For T est: CYTOGENETIC FISH([facility] ~FISH HER 2 NUE, FFPE See full report in Exec Image display viewer/tab#LAB-Reference Ordering Provid er: NIURKA MILLER Report Released Date/Time: Dec 21, 2021 12:11 PM Reporting Lab: [facility] [address] [facility] [facility] [address] Performing Lab: [facility] CYTOGENETIC FISH([facility] comment Dec 14, 2021 [facility] P4 GLU,BUN,CREAT,LYTES,CA Speci men Type: PLASMA 06:27 AM [facility] Comment: Tests performed on [employer] (405) SN:[id number] Ordering Provid er: ISATU TODD Report Released Date/Time: Dec 11, 2021 07:42 AM Reporting Lab: [facility] [address] [facility] [facility] [address] Performing Lab: [facility] [address] [facility] [address] UREA NITROGEN 10 7-25 SODIUM 137 135-145 [...] Lab: [facility] [address] [facility] [address] Performing Lab: [facility] [address] [facility] [address] WBC 6.0 4.5-11.0 RBC 4.29 4.23-5.66 HGB [...] 0.00 0-0 Dec 13, 2021 06:34 AM [facility] CBC PROFILE Sp ecimen Type: BLOOD No comment enter ed. Ordering Provid er: ISATU TODD Report Released Date/Time: Dec 10, 2021 07:22 AM Reporting [facility] [address] [facility] [facility] [address] Performing Lab: [facility] [address] [facility] [facility] [address] WBC 5.6 4.5-11.0 RBC 4.28 4.23-5.66 HGB [...] ABSOLUTE NRBC 0.00 0-0 Dec 13, 2021 [facility] P4 GLU,BUN,CREAT,LYTES,CA Speci men Type: PLASMA 06:34 AM [facility] Comment: Tests performed on [employer] (405) SN:[id number] Ordering Provid er: ISATU TODD Report Released Date/Time: Dec 11, 2021 07:42 AM Reporting Lab: [facility] [address] [facility] [facility] [address] Performing Lab: [facility] [address] [facility] [address] UREA NITROGEN 12 7-25 SODIUM 136 135-145 POTASSIUM 3.9 3.5-5.0 CHLORIDE 105 100-110 CARBON DIOXIDE 24 20-30 ANION GAP 7 4-16 GLUCOSE 102 H 65-100 CREATININE 0.66 0.5-1.5 CALCIUM 8.3 L 8.5-10.5 eGFR(CKD-EPI 2020) >90.0 >60 Dec 12, 2021 [facility] P[facility] GLU,BUN,CREAT,LYTES,CA Speci men Type: PLASMA 06:21 AM [facility] Comment: Tests performed on [employer] (405) SN:[id number] Ordering Provid er: ISATU TODD Report Released Date/Time: Dec 11, 2021 07:42 AM Reporting Lab: [facility] [address] [facility] [address] Performing Lab: [facility] [address] [facility] [facility] [address] UREA NITROGEN 11 7-25 SODIUM 139 135-145 POTASSIUM 4.1 3.5-5.0 CHLORIDE 107 100-110 CARBON DIOXIDE 24 20-30 ANION GAP 8 4-16 GLUCOSE 110 H 65-100 CREATININE 0.70 0.5-1.5 CALCIUM 8.3 L 8.5-10.5 eGFR(CKD-EPI 2020) >90.0 >60 Dec 12, 2021 06:21 AM [facility] CBC PROFILE Sp ecimen Type: BLOOD No comment enter ed. Ordering Provid er: ISATU TODD Report Released Date/Time: Dec 10, 2021 07:22 AM Reporting Lab: [facility] [address] [facility] [address] Performing Lab: [facility] [address] [facility] [facility] [address] WBC 5.5 4.5-11.0 RBC 4.37 4.23-5.66 HGB [...] 0.00 0-0 Dec 12, 2021 06:00 AM [employer] [facility] MAGNESIUM Sp ecimen Type: PLASMA Comment: Testin g Performed on [employer] (405) SN:[id number] Ordering Provid er: ISATU TODD Report Released Date/Time: Dec 12, 2021 08:24 AM Reporting Lab: [place] FinjanT [facility] [address] [facility] [facility] [address] Performing Lab: [employer] [place] [facility]T [facility] [address] [facility] [address] MAGNESIUM 1.8 1.6-2.6 Dec 12, 2021 06:00 AM [employer] [facility] PHOSPHORUS Sp ecimen Type: PLASMA Comment: Testin g Performed on [employer] (405) SN:[id number] Ordering Provid er: ISATU TODD Report Released Date/Time: Dec 12, 2021 08:24 AM Reporting Lab: [place] FinjanT [facility] [address] [facility] [facility] [address] Performing Lab: [place] FinjanT [facility] [address] [facility] [facility] [address] PHOSPHORUS 3.1 2.5-5.0 Dec 11, 2021 06:15 AM [employer] [place] [employer] [facility] [employer] ELECTROLYTES Sp ecimen Type: PLASMA Comment: Tests performed on [employer] (405) SN:[id number] Ordering Provid er: ISATU TODD Report Released Date/Time: Dec 10, 2021 07:22 AM Reporting Lab: [place] FinjanT [facility] [address] [facility] [facility] [address] Performing Lab: [place] FinjanT [facility] [address] [facility] [facility] [address] SODIUM 137 135-145 POTASSIUM 4.3 3.5-5.0 CHLORIDE 108 100-110 CARBON DIOXIDE 20 20-30 ANION GAP 9 4-16 Dec 11, 2021 06:15 AM [place] [facility]T [facility] CBC PROFILE Sp ecimen Type: BLOOD Comment: Result s checked Ordering Provid er: ISATU TODD Report Released Date/Time: Dec 10, 2021 07:22 AM Reporting Lab: [place] OMEGAT [facility] [address] [facility] [facility] [address] Performing Lab: [place] OMEGAT [facility] [address] [facility] [address] WBC 5.8 4.5-11.0 RBC 4.37 4.23-5.66 HGB [...] 0.00 0-0 Dec 11, 2021 06:00 AM [facility] PHOSPHORUS Sp ecimen Type: PLASMA Comment: Tests performed on [employer] (014) SN:[id number] Results checked Ordering Provid er: ISATU TODD Report Released Date/Time: Dec 11, 2021 07:44 AM Reporting Lab: [facility] DU[facility]T [facility] [address] [facility] [facility] [address] Performing Lab: [place] OMEGAT ILMROC [address] [facility] [facility] [address] PHOSPHORUS 3.0 2.5-5.0 Dec 10, 2021 08:05 AM [place] [facility] MAGNESIUM Sp ecimen Type: PLASMA Comment: [place] [id number] on Dec 10, 2021@08:31 Tests performed on [employer] (405) SN:[id number] Ordering Provid er: ISATU TODD Report Released Date/Time: Dec 10, 2021 07:22 AM Reporting Lab: [place] [facility] [address] [facility] [place] [address] Performing Lab: [place] [facility] [address] [facility] [place] [address] MAGNESIUM 1.7 1.6-2.6 Dec 10, 2021 08:05 AM [place] [facility] PHOSPHORUS Sp ecimen Type: PLASMA Comment: [place] [id number] on Dec 10, 2021@08:31 Tests performed on [employer] (405) SN:[id number] Ordering Provid er: ISATU TODD Report Released Date/Time: Dec 10, 2021 07:22 AM Reporting Lab: [place] [facility] [address] [facility] [place] [address] Performing Lab: [place] [facility] [address] [facility] [place] [address] PHOSPHORUS 1.8 L 2.5-5.0 Dec 10, 2021 08:05 AM [place] UREA NITROGEN Specimen Type: PLASMA [facility] Comment: [place] [id number] on Dec 10, 2021@08:31 Tests performed on [employer] (405) SN:[id number] Ordering Provid er: ISATU TODD Report Released Date/Time: Dec 10, 2021 07:22 AM Reporting Lab: [place] [facility] [address] [facility] [place] [address] Performing Lab: [place] [facility] [address] [facility] [place] [address] UREA NITROGEN 8 7-25 Dec 10, 2021 08:05 AM [place] [facility] GLUCOSE Sp ecimen Type: PLASMA Comment: [place] [id number] on Dec 10, 2021@08:31 Tests performed on [employer] (405) SN:[id number] Ordering Provid er: ISATU TODD Report Released Date/Time: Dec 10, 2021 07:22 AM Reporting Lab: [place] [facility] [address] [facility] [address] Performing Lab: [place] [facility] [address] [facility] [facility] [address] GLUCOSE 144 H 65-100 Dec 10, 2021 08:05 AM [place] [facility] CALCIUM Sp ecimen Type: PLASMA Comment: [place] [id number] on Dec 10, 2021@08:31 Tests performed on [employer] (405) SN:[id number] Ordering Provid er: ISATU TODD Report Released Date/Time: Dec 10, 2021 07:22 AM Reporting Lab: [place] [facility] [address] [facility] [address] Performing Lab: [place] [facility] [address] [facility] [address] CALCIUM 8.3 L 8.5-10.5 Dec 10, 2021 08:05 AM [place] [facility] ELECTROLYTES Sp ecimen Type: PLASMA Comment: [place] [id number] on Dec 10, 2021@08:31 Tests performed on [employer] (405) SN:[id number] Ordering Provid er: ISATU TODD Report Released Date/Time: Dec 10, 2021 07:22 AM Reporting Lab: [place] [facility] [address] [facility] [address] Performing Lab: [place] [facility] [address] [facility] [facility] [address] SODIUM 139 135-145 POTASSIUM 3.7 3.5-5.0 CHLORIDE 107 100-110 CARBON DIOXIDE 24 20-30 ANION GAP 8 4-16 Dec 10, 2021 08:05 AM [place] [facility] CBC PROFILE Sp ecimen Type: BLOOD No comment enter ed. Ordering Provid er: ISATU TODD Report Released Date/Time: Dec 10, 2021 07:22 AM Reporting Lab: [place] [facility] [address] [facility] [address] Performing Lab: [place] [facility] [address] [facility] [address] WBC 7.0 4.5-11.0 RBC 4.54 4.23-5.66 HGB [...] PLASMA AM [facility] PANEL Comment: [place] [id number] on Dec 10, 2021@08:31 Tests performed on [employer] (405) SN:[id number] Ordering Provid er: ISATU TODD Report Released Date/Time: Dec 10, 2021 07:22 AM Reporting Lab: [facility] [address] [facility] [facility] [address] Performing Lab: [facility] [address] [facility] [address] CREATININE 0.78 0.5-1.5 eGFR(CKD-EPI 2020) >90.0 >60 Dec 09, 2021 06:46 AM [place] [facility] MAGNESIUM Sp ecimen Type: PLASMA Comment: Tests performed on [employer] (405) SN:[id number] Ordering Provid er: ISATU TODD Report Released Date/Time: Dec 08, 2021 10:23 AM Reporting Lab: [place] [facility] [address] [facility] [address] Performing Lab: [place] [facility] [address] [facility] [address] MAGNESIUM 1.6 1.6-2.6 Dec 09, 2021 [facility] P4 GLU,BUN,CREAT,LYTES,CA Speci men Type: PLASMA 06:46 AM [facility] Comment: Tests performed on [employer] (405) SN:[id number] Ordering Provid er: ISATU TODD Report Released Date/Time: Dec 08, 2021 05:00 PM Reporting Lab: [facility] [address] [facility] [address] Performing Lab: [facility] [address] [facility] [address] UREA NITROGEN 6 L 7-25 SODIUM 134 [...] Reporting Lab: [facility] [address] [facility] [facility] [address] Performing Lab: [facility] [address] [facility] [facility] [address] WBC 7.1 4.5-11.0 RBC 4.40 4.23-5.66 HGB [...] 0-0 Dec 08, 2021 06:39 AM [facility] MAGNESIUM Sp ecimen Type: PLASMA Comment: Testin g Performed on [employer] (405) SN:[id number] Ordering Provid er: ISATU TODD Report Released Date/Time: Dec 07, 2021 10:32 AM Reporting Lab: [facility] [address] [facility] [facility] [address] Performing Lab: [facility] [address] [facility] [facility] [address] MAGNESIUM 1.5 L 1.6-2.6 Dec 08, 2021 06:39 AM [facility] CBC PROFILE Sp ecimen Type: BLOOD No comment enter ed. Ordering Provid er: SIATU TODD Report Released Date/Time: Dec 07, 2021 10:32 AM Reporting Lab: [facility] [address] [facility] [facility] [address] Performing Lab: [facility] [address] [facility] [facility] [address] WBC 8.4 4.5-11.0 RBC 4.75 4.23-5.66 HGB [...] ABSOLUTE NRBC 0.00 0-0 Dec 08, 2021 [facility] P4 GLU,BUN,CREAT,LYTES,CA Speci men Type: PLASMA 06:39 AM [facility] Comment: Testin g Performed on [employer] (405) SN:[id number] Ordering Provid er: ISATU TDOD Report Released Date/Time: Dec 07, 2021 10:32 AM Reporting Lab: [facility] [address] [facility] [address] Performing Lab: [facility] [address] [facility] [address] UREA NITROGEN 6 L 7-25 SODIUM 136 135-145 POTASSIUM 3.3 L 3.5-5.0 CHLORIDE 104 100-110 CARBON DIOXIDE 22 20-30 ANION GAP 10 4-16 GLUCOSE 133 H 65-100 CREATININE 0.76 0.5-1.5 CALCIUM 8.4 L 8.5-10.5 eGFR(CKD-EPI 2020) >90.0 >60 Dec 07, 2021 [facility] P4 GLU,BUN,CREAT,LYTES,CA Speci men Type: PLASMA 06:42 AM [facility] Comment: Tests performed on [employer] (405) SN:[id number] Ordering Provid er: PORFIRIO WALTERS Report Released Date/Time: Dec 06, 2021 06:57 PM Reporting Lab: [place] FinjanT [facility] [address] [facility] [address] Performing Lab: [facility] [address] [facility] [address] UREA NITROGEN 9 7-25 SODIUM 135 135-145 POTASSIUM 3.5 3.5-5.0 CHLORIDE 103 100-110 CARBON DIOXIDE 22 20-30 ANION GAP 10 4-16 GLUCOSE 92 65-100 CREATININE 0.73 0.5-1.5 CALCIUM 8.0 L 8.5-10.5 eGFR(CKD-EPI 2020) >90.0 >60 Dec 07, 2021 06:42 [place] LIVER PROFILE Specimen Typ e: PLASMA AM [facility] Comment: Tests performed on [employer] Information Assurance Engineer (405) SN:[id number] Ordering Provid er: PORFIRIO WALTERS Report Released Date/Time: Dec 06, 2021 06:57 PM Reporting Lab: [facility] [address] [facility] [address] Performing Lab: [facility] [address] [facility] [address] PROTEIN, TOTAL 5.7 L 6.0-8.5 ALBUMIN 2.4 L 3.2-5.0 BILIRUBIN, TOTAL 0.4 0.2-1.2 ALKALINE PHOSPHATASE 109 40-150 ALT(SGPT) 10 7-52 AST(SGOT) 15 5-34 FIB-4 SCORE 1.92 <2.67 Dec 07, 2021 06:42 AM [facility]ITE [facility] CBC PROFILE Specimen Type: BLOOD [facility] No comment enter ed. Ordering Provid er: PORFIRIO WALTERS Report Released Date/Time: Dec 06, 2021 06:57 PM Reporting Lab: [facility] [address] [facility] [address] Performing Lab: [facility] [address] [facility] [address] WBC 5.7 4.5-11.0 RBC 4.15 L 4.23-5.66 [...] [facility]AM[facility] %) AUTOMATED Comment: Tests performed on [employer] (405) SN:[id number] Ordering Provid er: ISATU TODD Report Released Date/Time: Dec 07, 2021 10:28 AM Reporting Lab: [place] [facility] [address] [facility] [address] Performing Lab: [place] [facility] [address] [facility] [facility] [address] RETICULOCYTES (%) AUTOMATED 1.23 0. 6-2.0 RETICULOCYTES (ABS) AUTOMATED 0.052 0.030-0.090 Dec 06, 2021 09:45 [place] MRSA SURVL NARES Specimen Ty pe: NARES PM [facility] DNA No comment enter ed. Ordering Provid er: ALVARO VARGHESE Report Released Date/Time: Dec 07, 2021 02:20 AM Reporting Lab: [place] [facility] [address] [facility] [facility] [address] Performing Lab: [place] [facility] [address] [facility] [address] MRSA SURVL NARES DNA NEGATIVE NEGATIVE Dec 06, 2021 06:00 [place] URINALYSIS W/REFLEX TO Speci men Type: URINE PM [facility] CULTURE No comment enter ed. Ordering Provid er: JELANI SÁNCHEZ Report Released Date/Time: Dec 06, 2021 11:57 AM Reporting Lab: [place] [facility] [address] [facility] [address] Performing Lab: [place] [facility] [address] [facility] [facility] [address] URINE COLOR Arlin YELLOW SPECIFIC GRAVITY 1.029 [...] 21, RIVER VARIANT Comment: https://www.cdc.gov/coronavirus/2019-ncov/cases-updates/variant- surveillance/variant-info.html The Sponduu SARS CoV 2 Sense of Skin Research Assay-GX is a next-generation sequencing (NGS) assa 2021 [facility] SEQUENCING y that determine s the complete genome sequence of the SARS-CoV-2 virus. The assay contains variant-tolerant primers to broaden and improve the coverage for variant detection and increase the sensitivity 12:00 [facility] PNL(WH) of the panel to enable detection from lower viral titer samples. The assay is run on the Capigami Sequencer, which performs automated library preparation, sequencing, analysis, and reporting. PM The sequence an alysis includes determination of viral phylogenetic lineage by comparison to the reference strain Wuhan-Hu-1, GenBank: [id number]. Sequence determination may not be possible owing [...] Dec 06, 2021 01:13 PM Reporting Lab: [facility] [address] [facility] [address] Performing Lab: [facility] [address] [facility] [address] SARS-CoV-2 CLADE() 22C (OMICRON) SARS-CoV-2 LINEAGE() BA.2.12.1 Dec 06, 2021 12:00 [facility] COVID-19 AG SCREEN Specimen Type: NASAL CAVITY PM [facility] PANEL BINAX(405) Comment: Testi ng Performed By: Mike Briscoe Ordering Provid er: JELANI SÁNCHEZ Report Released Date/Time: Dec 08, 2021 08:23 AM Reporting Lab: [facility] [address] [facility] [address] Performing Lab: [facility] [address] [facility] [address] COVID-19 AG SCRN(wrj BINAX) POSITIVE HH NE G Dec 06, 2021 12:00 PM [facility] TROPONIN II Sp ecimen Type: PLASMA Comment: Tests performed on [employer] Engineer (405) SN:[id number] Ordering Provid er: JELANI SÁNCHEZ Report Released Date/Time: Dec 06, 2021 11:57 AM Reporting Lab: [facility] [address] [facility] [address] Performing Lab: [facility] [address] [facility] [address] TROPONIN II 0.03 0.00-0.29 Dec 06, 2021 [place] P4 GLU,BUN,CREAT,LYTES,CA Speci men Type: PLASMA 12:00 PM [facility] Comment: Testin g Performed on [employer] Engineer (405) SN:[id number] Ordering Provid er: JELANI SÁNCHEZ Report Released Date/Time: Dec 06, 2021 11:57 AM Reporting Lab: [place] [facility] [address] [facility] [address] Performing Lab: [place] [facility] [address] [facility] [address] UREA NITROGEN 13 7-25 SODIUM 138 135-145 POTASSIUM 3.8 3.5-5.0 CHLORIDE 103 100-110 CARBON DIOXIDE 23 20-30 ANION GAP 12 4-16 GLUCOSE 105 H 65-100 CREATININE 0.90 0.5-1.5 CALCIUM 8.7 8.5-10.5 eGFR(CKD-EPI 2020) >90.0 >60 Dec 06, 2021 12:00 PM [facility] LIVER [facility]FILE Sp ecimen Type: PLASMA Comment: Testin g Performed on Pham Information Assurance Engineer (405) [id number] Ordering Provid er: JELANI SÁNCHEZ Report Released Date/Time: Dec 06, 2021 11:57 AM Reporting Lab[facility] [address] [facility] [address] Performing Lab: [facility] [address] [facility] [address] PROTEIN, TOTAL 6.6 6.0-8.5 ALBUMIN 2.8 L 3.2-5.0 BILIRUBIN, TOTAL 0.6 0.2-1.2 ALKALINE PHOSPHATASE 134 40-150 ALT(SGPT) 13 7-52 AST(SGOT) 18 5-34 FIB-4 SCORE 1.94 <2.67 Dec 06, 2021 12:00 PM [facility] BNP(P) Sp ecimen Type: PLASMA Comment: Tests performed on Pham Information Assurance Engineer (405) [id number] Ordering Provid er: JELANI SÁNCHEZ Report Released Date/Time: Dec 06, 2021 11:57 AM Reporting Lab: [facility] [address] [facility] [facility] [address] Performing Lab: [facility] [address] [facility] [facility] [address] BNP(P) 224.8 H 10-100 Dec 06, 2021 [facility] COVID-19+FLU/RSV DIAGNOSTIC Spe cimen Type: NASOPHARYNX 12:00 PM [facility] PANEL(405) Comment: Tests performed on Probiodrug Genexpert (405) Critical results called to and read back by: ALESHIA WILKINSON RN 12/06/21 @ 1312 Ordering Provid er: JELANI SÁNCHEZ Report Released Date/Time: Dec 06, 2021 11:57 AM Reporting Lab: [facility] [address] [facility] [address] Performing Lab: [place] [facility] [address] [facility] [address] FLU A(PCR) NEGATIVE NEGATIVE FLU B(PCR) NEGATIVE NEGATIVE RSV(PCR) NEGATIVE NEGATIVE COVID-19([id number]) DETECTED HH NO T DETECTED Dec 06, 2021 12:00 PM [facility] Sp ecimen Type: BLOOD No comment enter ed. Ordering Provid er: JELANI SÁNCHEZ Report Released Date/Time: Dec 06, 2021 11:57 AM Reporting Lab: [facility] [address] [address] Performing Lab: [facility] [address] [address] WBC 7.2 4.5-11.0 RBC 4.86 4.23-5.66 HGB [...] dy Source Pressure Rate Mass Index Dec 09, 0 2021 10:43 [facility] Dec 09, 98.2 F 82 111/58 18 /min 97 % 2021 08:31 /min mm[Hg] [facility] Dec 09, 98.3 F 106 113/69 18 /min 97 % WHITE 2021 02:37 /min mm[Hg] RIVER PM T [facility] Dec 09, 0 2021 11:42 [facility] Dec 09, 97.1 F 94 120/73 16 /min 98 % 0 WHITE 2021 07:40 /min mm[Hg] [facility] Social History: Smoking Status (Most current) and [...] took place. Date/Time Smoking Status/Tobacco Use Comment [facility] Apr 01, 2020 01:16 PM QUIT TOBACCO USE 1-7 YEARS AGO [facility] Mar 24, 2020 03:00 PM QUIT TOBACCO USE 1-[address] [facility] Feb 21, 2019 04:11 PM QUIT TOBACCO USE 1-[address] [facility] Feb 20, 2019 03:38 PM QUIT TOBACCO USE 1-[address] [facility] Feb 03, 2019 09:50 AM QUIT TOBACCO USE 1-7 YEARS AGO [facility] May 25, 2016 11:53 PM QUIT TOBACCO USE IN PAST YEAR [facility] May 23, 2016 06:57 PM QUIT TOBACCO USE > 7 YEARS AGO [facility] May 19, 2016 03:55 PM QUIT TOBACCO USE IN PAST YEAR [facility] May 19, 2016 10:29 AM QUIT TOBACCO USE 1-[address] [facility] May 01, 2016 07:26 PM QUIT TOBACCO USE IN PAST YEAR [facility] DOYLE [facility] May 01, 2016 03:11 PM QUIT TOBACCO USE IN PAST YEAR [facility] DOYLE [facility] May 01, 2016 11:19 AM QUIT TOBACCO USE IN PAST YEAR [facility] DOYLE [place] [facility] Mar 16, 2016 12:50 PM V1-PT DECLINES REF TO TOBACCO [facility] DOYLE [place] [facility] CESS [facility] Mar 16, 2016 12:50 PM V1-PT THINKING ABOUT QUIT [facility] DOYLE [facility] TOBACCO USE Aug 12, 2015 08:48 AM CURRENT SMOKER [facility] Yates [facility] Radiology Reports: +/- 30 days of the [...] W/WO CONTRAST: MARYELLEN LONG LUCAS LARES N [id number] -1950 [facility] Exm Date: DEC 13, 2021@12:57 Req Phys: ISATU TODD Loc: OP Unknown/0 12-15-2021@13:20 Img Loc: MRI IMAGING (OOS) Service: [facility] MEDICINE (Case [id number] COMPLETE) MRI ABDOMEN W/WO CONTRAST (M RI Detailed) CPT:64639 Reason for Study: further characterization of a [...] new lyphadenopathy REQUESTING MD: Isatu Todd PAGER: [phone] PHONE: [phone] Weight: 232.2 lb [105.32 kg] (12/12/2021 05:00) [...] patient will need to arrange for a full service vending driver to take him/her home after the [...] 15, 2021 Date Verified: DEC 15, 2021 Clinical Informatics Director E-Sig:/ES/MARYELLEN LONG Report: MRI ABDOMEN W/WO CONTRAST [...] MALIGNANCY Primary Interpreting Staff: Staff AMELIA THOMAS (Clinical Informatics Director) / Dec 10, 2021 09:[address] ABDOMEN & PELVIS: RAD[facility]OLOGY,OUTSIDE [facility] LUCAS MEEK N [id number] -1950 M SERVICE [facility] Exm Date: DEC 10, 2021@09:30 Req Phys: ISATU TODD Loc: 1S MED/12-10@10:57 Img Loc: CT SCAN (OOS) Service: [facility] (Case [id number] COMPLETE) CT ABD & PELVIS WITHOUT CONT RAST (CT Detailed) CPT:13777 Reason for Study: 71 yo male with [...] INDEX - NO HEIGHTS FOUND Pager number: [phone] STAT orders MUST be call ed to RADIOLOGY [phone] to speak to the appropriate screen making technician. Report Status: Verified Date Reported: DEC 10, 2021 Date Verified: DEC 10, 2021 Clinical Informatics Director E-Sig: Report: EXAM: CT abdomen and pelvis [...] ph nodes. READING PHYSICIAN: Ramone Munoz D.O. [phone] 12/10/2021 10:55 EDT [facility] National Teleradiology Program [phone] (For Medical Practitioner Use Only ) [address] [facility], [facility] [address] [place] [address] Attention Patients / Veterans: If you have ques tions or concerns about these test results, please contact your o rdering provider or primary care team. Primary Diagnostic Code: SIGNIFICANT ABNORMALIT Y, ATTN NEEDED Primary Interpreting Staff: RADIOLOGY,OUTSIDE SERVICE, Staff Physician / Dec 09, 2021 07:34 AM BASW (MODIFIED): JESSIE CHENEY [facility] LUCAS MEEK N [id number] -1950 M [facility] Exm Date: DEC 09, 2021@07:34 Req Phys: ISATU TODD Loc: 1S MED/12-09@11:26 Img Loc: XRAY (OOS) Service: [facility] MEDICINE (Case [id number] COMPLETE) BASW (MODIFIED) (RAD Detaile d) CPT:70583 Contrast Media : Barium Reason for Study: dysphagia ?esophageal spasm Clinical History: Report Status: Verified Date Reported: DEC 09, 2021 Date Verified: DEC 09, 2021 Clinical Informatics Director E-Sig:/ES/JESSIE CHENEY Report: DELISA (MODIFIED) , 12/09/2021 [...] REQUIRED Primary Interpreting Staff: JESSIE CHENEY, RADIOLOGIST (Clinical Informatics Director) /TLC Dec 06, 2021 12:[address] CHEST (INCLUDES ADRENALS): JESSIE CHENEY [facility] LUCAS MEEK N [id number] -1950 M [facility] Exm Date: DEC 06, 2021@12:59 Req Phys: JELANI SÁNCHEZ Pat Loc: [facility] ED DAYS M 1RD (Req'g Loc) Img Loc: CT SCAN (OOS) Service: Unknown (Case [id number] COMPLETE) CT THORAX W/O CONT (CT Detai led) CPT:38133 Reason for Study: Opacification right chest Clinical History: No contrast allergy BUN: 13 (12/06/21 12:00) CREATI: 0.90 (12/06/21 12:00) eGFR 05/16/21 09:43 52 L Weight: 232.6 lb [105.51 kg] (12/06/2021 11:40) BODY MASS INDEX - NO HEIGHTS FOUND Pager number: [phone] STAT orders MUST be called t o RADIOLOGY [phone] to speak to the appropriate screen making technician. Indications - Other: Opacification right chest, covid positive, lung cancer histo Report Status: Verified Date Reported: DEC 06, 2021 Date Verified: DEC 06, 2021 Clinical Informatics Director E-Sig:/ES/JESSIE CHENEY Report: CT THORAX W/O CONT [...] REQUIRED Primary Interpreting Staff: JESSIE CHENEY, RADIOLOGIST (Clinical Informatics Director) Primary Interpreting Resident: PRINCE CHAMPION, Resident /ABBI Dec 06, 2021 11:58 AM CHEST SINGLE VIEW: JESSIE CHENEYT LUCAS MEEK N [id number] -1950 M [facility] Exm Date: DEC 06, 2021@11:58 Req Phys: JELANI SÁNCHEZ Pat Loc: [facility] ED DAYS M 1RD (Req'g Loc) Img Loc: XRAY (OOS) Service: Unknown (Case [id number] COMPLETE) CHEST SINGLE VIEW (RAD Detai led) CPT:54251 Proc Modifiers : PORTABLE EXAM Reason for Study: SOB, home covid test positive Clinical History: Report Status: Verified Date Reported: DEC 06, 2021 Date Verified: DEC 06, 2021 Clinical Informatics Director E-Sig:/ES/JESSIE CHENEY Report: Exam type: Chest x-ray [...] REQUIRED Primary Interpreting Staff: JESSIE CHENEY, RADIOLOGIST (Clinical Informatics Director) /TLC Pathology Reports: +/- 30 days of [...] AM LR SURGICAL PATHOLOGY REPORT: STEFANY MILLER [facility] LOCAL TITLE: LR SURGICAL PATHOLOGY REPORT [facility] STANDARD TITLE: PATHOLOGY REPORT DATE OF NOTE: JAN 03, 2022@10:28:01 ENTRY DATE: JAN 03, 2022@10:28:01 AUTHOR: NIURKA MILLER EXP COSIGNER: URGENCY: STATUS: COMPLETED $APHDR Reporting Lab: [facility] [CLIA# [id number]] [address] [place] [address] - - - - - - [...] automatically d ocumented from SURGERY package case #[id number] Field (#32) PRINCIPAL PRE-OP DIAGNOSIS, (#.72) OTHER [...] automatically d ocumented from SURGERY package case #[id number] Field (#34) PRINCIPAL POST-OP DIAG, (#.74) OTHER [...] GROSS DESCRIPTION: Name Label: Lucas Meek Paperwork: uLcas Meek Cassette: [id number];..;KALYANI;.;405;[id number] Specimen is labeled: ES bx Received in formalin are several pieces of pale boyd and brown tissue, 1.2 x 0.7 cm in aggregate. Submitted entirely in 1 cassette [id number];..;KALYANI;.;405;[id number] SAW 12/15/2021 Microscopic exam: *+* MODIFIED REPORT *+* (Last modified: JAN 03, 2022@09:30:20 typed by NIURKA WADDELL) DIAGNOSIS: A. 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 Kendell long. TIARA Coombs was notified on 12/21/21. Modified on 01/03/22 to include report from [facility] stating that tumor is NEGATIVE for her2/ matheus amplification. The attending pathologist who signature mansoor ears on this report has reviewed all diagnostic slides and has edited t he gross and/or microscopic portion of this report in rendering the final pathologic diagnosis. [address] [address] CPT: 40837 /emely/ NIURKA Yeung MD Signed Jan 03, 2022@10:28 Performing Laboratory: Surgical Pathology Report Performed By: CAREY MONTOYA [facility] [CLIA# [id number]] [address] [place] [address] $FTR - - - - - [...] - - LUCAS MEEK STANDARD FORM 515 ID:[id number] SEX:M :1950 AGE: 71 LOC: SDM END PCP: Isatu Todd /emely/ NIURKA MILLER Staff Signed: 01/03/2022 10:28 Dec 21, 2021 11:46 AM LR SURGICAL PATHOLOGY REPORT: STEFANY MILLER [facility] LOCAL TITLE: LR SURGICAL PATHOLOGY REPORT [facility] STANDARD TITLE: PATHOLOGY REPORT DATE OF NOTE: DEC 21, 2021@11:46:59 ENTRY DATE: DEC 21, 2021@11:46:59 AUTHOR: NIURKA MILLER EXP COSIGNER: URGENCY: STATUS: COMPLETED $APHDR Reporting Lab: [facility] [CLIA# [id number]] [address] [place] [address] - - - - - - [...] automatically d ocumented from SURGERY package case #[id number] Field (#32) PRINCIPAL PRE-OP DIAGNOSIS, (#.72) OTHER [...] automatically d ocumented from SURGERY package case #[id number] Field (#34) PRINCIPAL POST-OP DIAG, (#.74) OTHER [...] Label: Lucas Meek Paperwork: Lucas Meek Cassette: [id number];..;KALYANI;.;405;[id number] Specimen is labeled: ES bx Received in formalin are several pieces of pale boyd and brown tissue, 1.2 x 0.7 cm in aggregate. Submitted entirely in 1 cassette [id number];..;KALYANI;.;405;[id number] SAW 12/15/2021 Microscopic exam: DIAGNOSIS: A. 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 Kendell long. TIARA Coombs was notified on 12/21/21. The attending pathologist who signature mansoor ears on this report has reviewed all diagnostic slides and has edited t he gross and/or microscopic portion of this report in rendering the final pathologic diagnosis. [address] [address] CPT: 79111 /emely/ NIURKA Yeung MD Signed Dec 21, 2021@11:46 Performing Laboratory: Surgical Pathology Report Performed By: [facility] [CLIA# [id number]] [address] [place] [address] $FTR - - - - - [...] - - LUCAS MEEK STANDARD FORM 515 ID:[id number] SEX:M :1950 AGE: 71 LOC: [facility] END PCP: Isatu Todd /emely/ NIURKA Yeung MD Signed: 12/21/2021 11:46 Dec 06, 2021 03:30 PM LR [facility] Reporting Lab: [facility] [CLIA# [id number]] [address] [place] [address] Accession [UID]: [id number] [[id number]] Receiv ed: Dec 06, 2021@16:14 Collection sample: BLOOD CUL T BOTTLE(NIRMAL/AERO)Collection date: Dec 06, 2021 15:30 Site/Specimen: BLOOD Provider: JELANI SÁNCHEZ Comment on specimen: LAC Test(s) ordered: BLOOD CULTURE ANAEROBI C....... completed: Dec 12, 2021 06:18 * BACTERIOLOGY FINAL REPORT => Dec 12, 2021 06:1 8 TECH CODE: [id number] Bacteriology Remark(s): NO GROWTH IN 5 DAYS =--=--=--=--=--=--=--=--=--=--=--=--=--= --=--=--=--=--=--=--=--=--=--=--=--=-- Performing Laboratory: Bacteriology Report Performed By: [facility] [CLIA# [id number]] [address] [place] [address] Dec 06, 2021 03:30 PM LR MICROBIOLOGY REPORT: [facility] Reporting Lab: [facility] [CLIA# [id number]] [address] [place] [address] Accession [UID]: [id number] [[id number]] Receiv ed: Dec 06, 2021@16:14 Collection sample: BLOOD CUL T BOTTLE(NIRMAL/AERO)Collection date: Dec 06, 2021 15:30 Site/Specimen: BLOOD Provider: JELANI SÁNCHEZ Comment on specimen: LAC Test(s) ordered: BLOOD CULTURE AEROBIC. ........ completed: Dec 12, 2021 06:17 * BACTERIOLOGY FINAL REPORT => Dec 12, 2021 06:1 7 TECH CODE: [id number] Bacteriology Remark(s): NO GROWTH IN 5 DAYS =--=--=--=--=--=--=--=--=--=--=--=--=--= --=--=--=--=--=--=--=--=--=--=--=--=-- Performing Laboratory: Bacteriology Report Performed By: [facility] [CLIA# [id number]] [address] [place] [address]
--- OUTSIDE RECORDS SUMMARY | 2022-01-19 08:27 | XMS_ITS ---
DAILY HOSPITALIZATION DATA [facility] Encounter Summary Created on:December 09, 2021 Patient:LUCAS MEEK Sex:Male :1950 Author Organization [facility] Address [address] [place] [id number] Support Name Relationship Address Phone YUSRA MEEK Unavailable [address] [place] [address] YUSRA MEEK Unavailable [address] [place] [address] CLAY MOSLEY Unavailable Unavailable SJ SANTACRUZ Unavailable [...] MEDICARE MEDICARE PART Jun 18, PART A [id number] DO KALYANI PATIENT (WNR) (M) A 2016 13A 1 [place]AS MEDICARE MEDICARE PART Jun 18, PART B [id number] DO KALYANI PATIENT (WNR) (M) B 2016 13A 1 [place] MEDICARE MEDICARE PART Jun 18, PART A [id number] KALYANIDO PATIENT (WNR) (M) A 2017 VH81 2 [place]AS MEDICARE MEDICARE PART Jun 18, PART B [id number] DO KALYANI PATIENT (WNR) (M) B 2017 VH81 2 [place] UNITED MEDICARE MCR(Jun [id number] Luz MEEK PATIENT HEALTHCARE ADVANTAGE NR) 2021 37 0 [facility] (WNR) Selected Encounter This section includes the information on record at [place] for the Encounter. Date/Time Encounter Type Encounter Description Reason Provider Source Dec 09, 2021 09:08 Inpatient Visit DAILY HOSPITALIZATION DATA AM [facility] Encounter Template Text not used by [place] Plan of Treatment: Future Appointments (+ 6 months) and Future Tests (+/- 45 days) The Plan of Treatment section includes future care activities for the patient from all [place] treatmentfacilities. This section includes future appointments and future orders which are active, pending orscheduled.Future Appointments This section includes appointments that were scheduled to occur 6 months from the date of the Encounter, up to a maximum of 20 appointments. The data comes from all [place] treatment facilities. Appointment Date/Time Appointment Type Appointment Facili ty Name Dec 21, 2021 08:00 AM AM[place] [facility] Jan 06, 2022 02:00 PM [place] [facility] Jan 10, 2022 11:30 AM AMBULATORY - MEDICINE [facility] Jan 24, 2022 08:00 AM [place] [facility] Feb 21, 2022 10:00 AM [place] [facility] Mar 21, 2022 10:30 AM AMBULATORY [...] the Encounter. The data comes from all [place] treatment [facility]. Test Date/Time Test Type Test Details Facility Name October 31, 2021 07:37 AM Consult Order [facility] Cons Chief Commercial Officer's Choice November 15, 2021 10:[address] [facility] CARE-PODIATRY Cons Chief Commercial Officer's Choice Dec 06, 2021 12:52 PM Pharmacy - [place] Infusion Order [facility] Dec 06, 2021 03:24 PM Pharmacy [place] [facility] Dec 06, 2021 03:40 PM [place]acy - [place] [facility] Dec 15, 2021 08:41 AM Consult Order SPEECH PATHOLOGY [place] OUTPATIENT Cons [facility] Chief Commercial Officer's Choice Jan 15, 2022 10:[address] [facility] CARE-PALLIATIVE CARE Cons Chief Commercial Officer's Choice Lab Results: +/- 30 days [...] Reference Range Comment Dec 15, 2021 [place] P4 GLU,BUN,CREAT,LYTES,CA Speci men Type: PLASMA 06:43 AM [facility] Comment: Tests performed on EUROBOX (405) SN:[id number] Ordering Provid er: ISATU TODD Report Released Date/Time: Dec 11, 2021 07:42 AM Reporting Lab: [facility] T [facility] [address] [facility] [address] Performing Lab: [facility] [address] [facility] [address] UREA NITROGEN 9 7-25 SODIUM 137 135-145 POTASSIUM 3.8 3.5-5.0 CHLORIDE 105 100-110 CARBON DIOXIDE 26 20-30 ANION GAP 6 4-16 GLUCOSE 102 H 65-100 CREATININE 0.64 0.5-1.5 CALCIUM 8.1 L 8.5-10.5 eGFR(CKD-EPI 2020) >90.0 >60 Dec 15, 2021 06:43 AM [facility] CBC PROFILE Sp ecimen Type: BLOOD No comment enter ed. Ordering Provid er: ISATU TODD Report Released Date/Time: Dec 10, 2021 07:22 AM Reporting Lab: [facility] [address] [facility] [address] Performing Lab: [facility] [address] [facility] [address] WBC 5.7 4.5-11.0 RBC 4.22 L 4.23-5.66 [...] CYTOGENETIC Specimen Type: ESOPHAGUS 02:59 PM [facility] FISH([facility] Comment: ~For T est: CYTOGENETIC FISH([facility]) ~FISH HER 2 NUE, FFPE See full report in Phanfare Image display viewer/tab#LAB-Reference Ordering Provid er: NIURKA MILLER Report Released Date/Time: Dec 21, 2021 12:11 PM Reporting Lab: [facility] [address] [facility] [address] Performing Lab: [facility] CYTOGENETIC FISH([facility]) comment Dec 14, [address] [facility] P4 GLU,BUN,CREAT,LYTES,CA Speci men Type: PLASMA 06:27 AM [facility] Comment: Tests performed on EUROBOX (405) SN:[id number] Ordering Provid er: ISATU TODD Report Released Date/Time: Dec 11, 2021 07:42 AM Reporting Lab: [facility] [address] [facility] [address] Performing Lab: [facility] [address] [facility] [address] UREA NITROGEN 10 7-25 SODIUM 137 135-145 POTASSIUM 4.0 3.5-5.0 CHLORIDE 104 100-110 CARBON DIOXIDE 25 20-30 ANION GAP 8 4-16 GLUCOSE 99 65-100 CREATININE 0.67 0.5-1.5 CALCIUM 8.2 L 8.5-10.5 eGFR(CKD-EPI 2020) >90.0 >60 Dec 14, 2021 06:27 AM [facility] CBC PROFILE Sp ecimen Type: BLOOD No comment enter ed. Ordering Provid er: ISATU TODD Report Released Date/Time: Dec 10, 2021 07:22 AM Reporting Lab: [facility] [address] [facility] [address] Performing Lab: [facility] [address] [facility] [address] WBC 6.0 4.5-11.0 RBC 4.29 4.23-5.66 HGB [...] GLU,BUN,CREAT,LYTES,CA Speci men Type: PLASMA 06:34 AM [facility] Comment: Tests performed on EUROBOX (405) SN:[id number] Ordering Provid er: ISATU TODD Report Released Date/Time: Dec 11, 2021 07:42 AM Reporting Lab: [facility] [address] [facility] [address] Performing Lab: [facility] [address] [facility] [address] UREA NITROGEN 12 7-25 SODIUM 136 135-145 [...] Reporting Lab: [facility] [address] [facility] [address] Performing Lab: [facility] [address] [facility] [address] WBC 5.6 4.5-11.0 RBC 4.28 4.23-5.66 HGB [...] ABSOLUTE NRBC 0.00 0-0 Dec 12, [address] [facility] P4 GLU,BUN,CREAT,LYTES,CA Speci men Type: PLASMA 06:21 AM [facility] Comment: Tests performed on EUROBOX (405) SN:[id number] Ordering Provid er: ISATU TODD Report Released Date/Time: Dec 11, 2021 07:42 AM Reporting Lab: [facility] [address] [facility] [address] Performing Lab: [facility] [address] [facility] [address] UREA NITROGEN 11 7-25 SODIUM 139 135-145 [...] AM Reporting Lab: [facility] [address] [facility] [address] Performing Lab: [facility] [address] [facility] [address] WBC 5.5 4.5-11.0 RBC 4.37 4.23-5.66 HGB [...] 0.00 0-0 Dec 12, 2021 06:00 AM [facility] MAGNESIUM Sp ecimen Type: PLASMA Comment: Testin g Performed on EUROBOX (405) SN:[id number] Ordering Provid er: ISATU TODD Report Released Date/Time: Dec 12, 2021 08:24 AM Reporting Lab: [facility] [facility] [address] [facility] [address] Performing Lab: [place] [facility] [address] [facility] [address] MAGNESIUM 1.8 1.6-2.6 Dec 12, 2021 06:00 AM [facility] PHOSPHORUS Sp ecimen Type: PLASMA Comment: Testin g Performed on EUROBOX (405) SN:[id number] Ordering Provid er: ISATU TODD Report Released Date/Time: Dec 12, 2021 08:24 AM Reporting Lab: [place] [facility] [address] [facility] [address] Performing Lab: [place] [facility] [address] [facility] [address] PHOSPHORUS 3.1 2.5-5.0 Dec 11, 2021 06:15 AM [facility] [place] [facility] ELECTROLYTES Sp ecimen Type: PLASMA Comment: Tests performed on EUROBOX (405) SN:[id number] Ordering Provid er: ISATU TODD Report Released Date/Time: Dec 10, 2021 07:22 AM Reporting Lab: [place] [facility] [address] [facility] [address] Performing Lab: [place] [facility] [address] [facility] [address] SODIUM 137 135-145 POTASSIUM 4.3 3.5-5.0 CHLORIDE 108 100-110 CARBON DIOXIDE 20 20-30 ANION GAP 9 4-16 Dec 11, 2021 06:15 AM [facility] [facility] CBC PROFILE Sp ecimen Type: BLOOD Comment: Result s checked Ordering Provid er: ISATU TODD Report Released Date/Time: Dec 10, 2021 07:22 AM Reporting Lab: [place] [facility] [address] [facility] [address] Performing Lab: [place] [facility] [address] [facility] [address] WBC 5.8 4.5-11.0 RBC 4.37 4.23-5.66 HGB [...] ecimen Type: PLASMA Comment: Tests performed on EUROBOX (752) SN:[id number] Results checked Ordering Provid er: ISATU TODD Report Released Date/Time: Dec 11, 2021 07:44 AM Reporting Lab: [facility] [address] [facility] [address] Performing Lab: [place] [facility] [address] [facility] [address] PHOSPHORUS 3.0 2.5-5.0 Dec 10, 2021 08:05 AM [place] [facility] MAGNESIUM Sp ecimen Type: PLASMA Comment: [place] [id number] on Dec 10, 2021@08:31 Tests performed on EUROBOX (405) SN:[id number] Ordering Provid er: ISATU TODD Report Released Date/Time: Dec 10, 2021 07:22 AM Reporting Lab: [place] [facility] [address] [place] [facility] [place] [address] Performing Lab: [place] [facility] [address] [place] [facility] [place] [address] MAGNESIUM 1.7 1.6-2.6 Dec 10, 2021 08:05 AM [place] [facility] PHOSPHORUS Sp ecimen Type: PLASMA Comment: [place] [id number] on Dec 10, 2021@08:31 Tests performed on EUROBOX (405) SN:[id number] Ordering Provid er: ISATU TODD Report Released Date/Time: Dec 10, 2021 07:22 AM Reporting Lab: [place] [facility] [address] [place] [facility] [place] [address] Performing Lab: [place] [facility] [address] [place] [facility] [place] [address] PHOSPHORUS 1.8 L 2.5-5.0 Dec 10, 2021 08:05 AM [place] UREA NITROGEN Specimen Type: PLASMA [facility] Comment: [place] [id number] on Dec 10, 2021@08:31 Tests performed on EUROBOX (405) SN:[id number] Ordering Provid er: ISATU TODD Report Released Date/Time: Dec 10, 2021 07:22 AM Reporting Lab: [place] [facility] [address] [place] [facility] [place] [address] Performing Lab: [place] [facility] [address] [place] [facility] [place] [address] UREA NITROGEN 8 7-25 Dec 10, 2021 08:05 AM [place] [facility] GLUCOSE Sp ecimen Type: PLASMA Comment: [place] [id number] on Dec 10, 2021@08:31 Tests performed on EUROBOX (405) SN:[id number] Ordering Provid er: ISATU TODD Report Released Date/Time: Dec 10, 2021 07:22 AM Reporting Lab: [place] [facility] [address] [facility] [address] Performing Lab: [place] [facility] [address] [facility] [address] GLUCOSE 144 H 65-100 Dec 10, 2021 08:05 AM [place] [facility] ELECTROLYTES Sp ecimen Type: PLASMA Comment: [place] [id number] on Dec 10, 2021@08:31 Tests performed on EUROBOX (405) SN:[id number] Ordering Provid er: ISATU TODD Report Released Date/Time: Dec 10, 2021 07:22 AM Reporting Lab: [place] [facility] [address] [facility] [address] Performing Lab: [place] [facility] [address] [facility] [address] SODIUM 139 135-145 POTASSIUM 3.7 3.5-5.0 CHLORIDE 107 100-110 CARBON DIOXIDE 24 20-30 ANION GAP 8 4-16 Dec 10, 2021 08:05 AM [place] [facility] CALCIUM Sp ecimen Type: PLASMA Comment: [place] [id number] on Dec 10, 2021@08:31 Tests performed on EUROBOX (405) SN:[id number] Ordering Provid er: ISATU TODD Report Released Date/Time: Dec 10, 2021 07:22 AM Reporting Lab: [place] [facility] [address] [facility] [address] Performing Lab: [place] [facility] [address] [facility] [address] CALCIUM 8.3 L 8.5-10.5 Dec 10, 2021 08:05 AM [place] [facility] CBC PROFILE Sp ecimen Type: BLOOD No comment enter ed. Ordering Provid er: ISATU TODD Report Released Date/Time: Dec 10, 2021 07:22 AM Reporting Lab: [place] [facility] [address] [facility] [address] Performing Lab: [place] [facility] [address] [facility] [address] WBC 7.0 4.5-11.0 RBC 4.54 4.23-5.66 HGB [...] PLASMA AM [facility] PANEL [place]: [place] [id number] on Dec 10, 2021@08:31 Tests performed on EUROBOX (405) SN:[id number] Ordering Provid er: ISATU TODD Report Released Date/Time: Dec 10, 2021 07:22 AM Reporting Lab: [facility] [address] [facility] [address] Performing Lab: [facility] [address] [facility] [address] CREATININE 0.78 0.5-1.5 eGFR(CKD-EPI 2020) >90.0 >60 Dec 09, 2021 06:46 AM [place] [facility] MAGNESIUM Sp ecimen Type: PLASMA Comment: Tests performed on EUROBOX (405) SN:[id number] Ordering Provid er: ISATU TODD Report Released Date/Time: Dec 08, 2021 10:23 AM Reporting Lab: [place] [facility] [address] [facility] [address] Performing Lab: [place] [facility] [address] [facility] [address] MAGNESIUM 1.6 1.6-2.6 Dec 09, [address] [facility] P4 GLU,BUN,CREAT,LYTES,CA Speci men Type: PLASMA 06:46 AM [facility] Comment: Tests performed on EUROBOX (405) SN:[id number] Ordering Provid er: ISATU TODD Report Released Date/Time: Dec 08, 2021 05:00 PM Reporting Lab: [facility] [address] [facility] [address] Performing Lab: [facility] [address] [facility] [address] UREA NITROGEN 6 L 7-25 SODIUM 134 [...] Reporting Lab: [facility] [address] [facility] [address] Performing Lab: [facility] [address] [facility] [address] WBC 7.1 4.5-11.0 RBC 4.40 4.23-5.66 HGB [...] 0.00 0-0 Dec 08, 2021 06:39 AM [place] [facility] T [facility] MAGNESIUM Sp ecimen Type: PLASMA Comment: Testin g Performed on EUROBOX (405) SN:[id number] Ordering Provid er: ISATU TODD Report Released Date/Time: Dec 07, 2021 10:32 AM Reporting Lab: [facility] [address] [facility] [address] Performing Lab: [facility] [address] [facility] [address] MAGNESIUM 1.5 L 1.6-2.6 Dec 08, 2021 [place] [facility] T P4 GLU,BUN,CREAT,LYTES,CA Speci men Type: PLASMA 06:39 AM [facility] Comment: Testin g Performed on EUROBOX (405) SN:[id number] Ordering Provid er: ISATU TODD Report Released Date/Time: Dec 07, 2021 10:32 AM Reporting Lab: [employer] T [facility] [address] [facility] [address] Performing Lab: [facility] [address] [facility] [address] UREA NITROGEN 6 L 7-25 SODIUM 136 135-145 POTASSIUM 3.3 L 3.5-5.0 CHLORIDE 104 100-110 CARBON DIOXIDE 22 20-30 ANION GAP 10 4-16 GLUCOSE 133 H 65-100 CREATININE 0.76 0.5-1.5 CALCIUM 8.4 L 8.5-10.5 eGFR(CKD-EPI 2020) >90.0 >60 Dec 08, 2021 06:39 AM [place] [facility] T [facility] CBC PROFILE Sp ecimen Type: BLOOD No comment enter ed. Ordering Provid er: ISATU TODD Report Released Date/Time: Dec 07, 2021 10:32 AM Reporting Lab: [facility] [address] [facility] [address] Performing Lab: [facility] [address] [facility] [address] WBC 8.4 4.5-11.0 RBC 4.75 4.23-5.66 HGB [...] ABSOLUTE NRBC 0.00 0-0 Dec 07, [address] [facility] P4 GLU,BUN,CREAT,LYTES,CA Speci men Type: PLASMA 06:42 AM [facility] Comment: Tests performed on EUROBOX (405 SN:[id number] Ordering Provid er: PORFIRIO WALTERS Report Released Date/Time: Dec 06, 2021 06:57 PM Reporting Lab: [facility] [address] [facility] [address] Performing Lab: [facility] [address] [facility] [address] UREA NITROGEN 9 7-25 SODIUM 135 135-145 POTASSIUM 3.5 3.5-5.0 CHLORIDE 103 100-110 CARBON DIOXIDE 22 20-30 ANION GAP 10 4-16 GLUCOSE 92 65-100 CREATININE 0.73 0.5-1.5 CALCIUM 8.0 L 8.5-10.5 eGFR(CKD-EPI 2020) >90.0 >60 Dec 07, 2021 06:42 [place] LIVER PROFILE Specimen Typ e: PLASMA AM [facility] Comment: Tests performed on Cued Line Helper (405) SN:[id number] Ordering Provid er: PORFIRIO WALTERS Report Released Date/Time: Dec 06, 2021 06:57 PM Reporting Lab: [facility] [address] [facility] [address] Performing Lab: [facility] [address] [facility] [address] PROTEIN, TOTAL 5.7 L 6.0-8.5 ALBUMIN 2.4 L 3.2-5.0 BILIRUBIN, TOTAL 0.4 0.2-1.2 ALKALINE PHOSPHATASE 109 40-150 ALT(SGPT) 10 7-52 AST(SGOT) 15 5-34 FIB-4 SCORE 1.92 <2.67 Dec 07, 2021 06:42 AM [facility] CBC PROFILE Specimen Type: BLOOD [facility] No comment enter ed. Ordering Provid er: PORFIRIO WALTERS Report Released Date/Time: Dec 06, 2021 06:57 PM Reporting Lab: [facility] [address] [facility] [address] Performing Lab: [facility] [address] [facility] [address] WBC 5.7 4.5-11.0 RBC 4.15 L 4.23-5.66 [...] [facility]AM[facility] %) AUTOMATED Comment: Tests performed on EUROBOX (405) SN:[id number] Ordering Provid er: ISATU TODD Report Released Date/Time: Dec 07, 2021 10:28 AM Reporting Lab: [place] [facility] [address] [facility] [address] Performing Lab: [place] [facility] [address] [facility] [address] RETICULOCYTES (%) AUTOMATED 1.23 0. 6-2.0 RETICULOCYTES (ABS) AUTOMATED 0.052 0.030-0.090 Dec 06, 2021 09:45 [place] MRSA SURVL NARES Specimen Ty pe: NARES PM [facility] DNA No comment enter ed. Ordering Provid er: ALVARO VARGHESE Report Released Date/Time: Dec 07, 2021 02:20 AM Reporting Lab: [place] [facility] [address] [facility] [address] Performing Lab: [place] [facility] [address] [facility] [address] MRSA SURVL NARES DNA NEGATIVE NEGATIVE Dec 06, 2021 06:00 [place] URINALYSIS W/REFLEX TO Speci men Type: URINE PM [facility] CULTURE No comment enter ed. Ordering Provid er: JELANI SÁNCHEZ Report Released Date/Time: Dec 06, 2021 11:57 AM Reporting Lab: [place] [facility] [address] [facility] [address] Performing Lab: [place] [facility] [address] [facility] [address] URINE COLOR Arlin YELLOW SPECIFIC GRAVITY 1.029 [...] 21, [place] VARIANT Comment: https://www.cdc.gov/coronavirus/2019-ncov/cases-updates/variant- surveillance/variant-info.html The Viragen SARS CoV 2 ZYOMYX Research Assay-GX is a next-generation sequencing (NGS) assa 2021 [facility] SEQUENCING y that determine s the complete genome sequence of the SARS-CoV-2 virus. The assay contains variant-tolerant primers to broaden and improve the coverage for variant detection and increase the sensitivity 12:00 [facility] PNL(WH) of the panel to enable detection from lower viral titer samples. The assay is run on the TandemLaunch Sequencer, which performs automated library preparation, sequencing, analysis, and reporting. PM The sequence an alysis includes determination of viral phylogenetic lineage by comparison to the reference strain Wuhan-Hu-1, GenBank: [id number]. Sequence determination may not be possible owing [...] [facility] [address] [facility] [address] Performing Lab: [facility] [address] [facility] [address] SARS-CoV-2 CLADE() 22C (OMICRON) SARS-CoV-2 LINEAGE() BA.2.12.1 Dec 06, 2021 12:[address] [facility] COVID-19 AG SCREEN Specimen Type: NASAL CAVITY PM [facility] PANEL BINAX(405) Comment: Testi ng Performed By: Mike Briscoe Ordering Provid er: JELANI SÁNCHEZ Report Released Date/Time: Dec 08, 2021 08:23 AM Reporting Lab: [facility] [address] [facility] [address] Performing Lab: [facility] [address] [facility] [address] COVID-19 AG SCRN(wrj BINAX) POSITIVE HH NE G Dec 06, 2021 12:00 PM [facility] LIVER PROFILE Sp ecimen Type: PLASMA Comment: Testin g Performed on Pham Line Helper (405) SN:[id number] Ordering Provid er: JELANI SÁNCHEZ Report Released Date/Time: Dec 06, 2021 11:57 AM Reporting Lab: [facility] [address] [facility] [address] Performing Lab: [facility] [address] [facility] [address] PROTEIN, TOTAL 6.6 6.0-8.5 ALBUMIN 2.8 L 3.2-5.0 BILIRUBIN, TOTAL 0.6 0.2-1.2 ALKALINE PHOSPHATASE 134 40-150 ALT(SGPT) 13 7-52 AST(SGOT) 18 5-34 FIB-4 SCORE 1.94 <2.67 Dec 06, 2021 12:00 PM [facility] BNP(P) Sp ecimen Type: PLASMA Comment: Tests performed on Pham Line Helper (405) SN:[id number] Ordering Provid er: JELANI SÁNCHEZ Report Released Date/Time: Dec 06, 2021 11:57 AM Reporting Lab: [facility] [address] [facility] [address] Performing Lab: [facility] [address] [facility] [address] BNP(P) 224.8 H 10-100 Dec 06, 2021 12:00 PM [facility] TROPONIN II Sp ecimen Type: PLASMA Comment: Tests performed on Pham Line Helper (405) SN:[id number] Ordering Provid er: JELANI SÁNCHEZ Report Released Date/Time: Dec 06, 2021 11:57 AM Reporting Lab: [facility] [address] [facility] [address] Performing Lab[facility] [address] [facility] [address] TROPONIN II 0.03 0.00-0.29 Dec 06, 2021 [facility] P4 GLU,BUN,CREAT,LYTES,CA Speci men Type: PLASMA 12:00 PM [facility] Comment: Testin g Performed on Pham Line Helper (405) [id number] Ordering Provid er: JELANI SÁNCHEZ Report Released Date/Time: Dec 06, 2021 11:57 AM Reporting Lab: [facility] [address] [facility] [address] Performing Lab: [facility] [address] [facility] [address] UREA NITROGEN 13 7-25 SODIUM 138 135-145 POTASSIUM 3.8 3.5-5.0 CHLORIDE 103 100-110 CARBON DIOXIDE 23 20-30 ANION GAP 12 4-16 GLUCOSE 105 H 65-100 CREATININE 0.90 0.5-1.5 CALCIUM 8.7 8.5-10.5 eGFR(CKD-EPI 2020) >90.0 >60 Dec 06, 2021 [facility] COVID-19+FLU/RSV DIAGNOSTIC Spe cimen Type: NASOPHARYNX 12:00 PM [facility] PANEL(405) Comment: Tests performed on Spectraseisxpert (405) Critical results called to and read back by: ALESHIA WILKINSON RN 12/06/21 @ 1312 Ordering Provid er: JELANI SÁNCHEZ Report Released Date/Time: Dec 06, 2021 11:57 AM Reporting Lab: [facility] [address] [facility] [address] Performing Lab: [place] [facility] [address] [facility] [address] FLU A(PCR) NEGATIVE NEGATIVE FLU B(PCR) NEGATIVE NEGATIVE RSV(PCR) NEGATIVE NEGATIVE COVID-19([id number]) DETECTED HH NO T DETECTED Dec 06, 2021 12:00 PM [facility] Sp ecimen Type: BLOOD No comment enter ed. Ordering Provid er: JELANI SÁNCHEZ Report Released Date/Time: Dec 06, 2021 11:57 AM Reporting Lab: [facility] [address] [facility] [address] Performing Lab: [facility] [address] [facility] [address] WBC 7.2 4.5-11.0 RBC 4.86 4.23-5.66 HGB [...] Dec 09, 0 2021 10:43 [facility] PM [facility] Dec 09, 98.2 F 82 111/58 18 /min 97 % 2021 08:31 /min mm[Hg] RIVER PM [facility] Dec 09, 98.3 F 106 113/69 18 /min 97 % WHITE 2021 02:37 /min mm[Hg] RIVER PM T [facility] Dec 09, 0 2021 11:42 RIVER AM [facility] Dec 09, 97.1 F 94 120/73 16 /min 98 % 0 WHITE 2021 07:40 /min mm[Hg] [facility] [facility] Social History: Smoking Status (Most current) and Tobacco Use (All prior to encounter date) This section includes the most current, and the historical, smoking and tobacco-related health factors from the [place] facility where the Encounter took place.Current Smoking Status This section includes the most current smoking, or tobacco-related health factor, from the [place] facility where the Encounter took place. Date/Time Current Smoking Status Comment Facility Dec 06, 2021 11:40 AM QUIT TOBACCO USE > 7 YEARS AGO [facility] Tobacco Use History This section includes a history of the smoking, or tobacco- related health factors, that were collected on or before the date of the Encounter. The data comes from the [place] facility where the Encounter took place. Date/Time Smoking Status/Tobacco Use Comment [facility] Apr 01, 2020 01:16 PM [...] YEARS AGO CAREY [facility] May 25, 2016 11:53 PM QUIT TOBACCO USE IN PAST YEAR [facility] May 23, 2016 06:57 PM QUIT TOBACCO USE > 7 YEARS AGO [facility] May 19, 2016 [...] USE IN PAST YEAR CAREY [place] [facility] Mar 16, 2016 12:50 PM V1-PT DECLINES REF TO TOBACCO CAREY [place] [facility] CESS [facility] Mar 16, 2016 12:50 [...] the Encounter. The data comes from all [place] treatment facilities. Date/Time Radiology Report Provider Source Dec 13, 2021 12:57 PM MRI ABDOMEN W/WO CONTRAST: MARYELLEN LONG LUCAS LARES N [id number] -1950 [facility] Exm Date: DEC 13, 2021@12:57 Req Phys: ISATU TODD Loc: OP Unknown/0 12-15-2021@13:20 Img Loc: MRI IMAGING (OOS) Service: [facility] MEDICINE (Case [id number] COMPLETE) MRI ABDOMEN W/WO CONTRAST (M RI Detailed) CPT:49141 Reason for Study: further characterization of a [...] new lyphadenopathy REQUESTING MD: Isatu Todd PAGER: [phone] PHONE: [phone] Weight: 232.2 lb [105.32 kg] (12/12/2021 05:00) [...] patient will need to arrange for a driver/merchandiser to take him/her home after the MRI [...] 15, 2021 Date Verified: DEC 15, 2021 Stem Lead Former E-Sig:/ES/MARYELLEN LONG Report: MRI ABDOMEN W/WO CONTRAST [...] MALIGNANCY Primary Interpreting Staff: Staff AMELIA THOMAS (Stem Lead Former) / Dec 10, 2021 09:[address] ABDOMEN & PELVIS: [facility] LUCAS [facility]EEK N [id number] -1950 M SERVICE [facility] Exm Date: DEC 10, 2021@09:30 Req Phys: ISATU TODD Loc: 1S MED/12-10@10:57 Img Loc: CT SCAN (OOS) Service: [facility] (Case [id number] COMPLETE) CT ABD & PELVIS WITHOUT CONT RAST (CT Detailed) CPT:78810 Reason for Study: 71 yo male with [...] INDEX - NO HEIGHTS FOUND Pager number: [phone] STAT orders MUST be call ed to RADIOLOGY [phone] to speak to the appropriate auto brake technician. Report Status: Verified Date Reported: DEC 10, 2021 Date Verified: DEC 10, 2021 Stem Lead Former E-Sig: Report: EXAM: CT abdomen and pelvis [...] ph nodes. READING PHYSICIAN: Ramone Munoz D.O. [phone] 12/10/2021 10:55 EDT [facility] National Teleradiology Program [phone] (For Medical Practitioner Use Only ) [address] [facility], [facility] [address] [place] [address] Attention Patients / Veterans: If you have ques tions or concerns about these test results, please contact your o rdering provider or primary care team. Primary Diagnostic Code: SIGNIFICANT ABNORMALIT Y, ATTN NEEDED Primary Interpreting Staff: RADIOLOGY,OUTSIDE SERVICE, Staff Physician / Dec 09, 2021 07:34 AM BASW (MODIFIED): JESSIE CHENEY [facility] LUCAS MEEK N [id number] -1950 M [facility] Exm Date: DEC 09, 2021@07:34 Req Phys: ISATU TODD Loc: 1S MED/12-09@11:26 Img Loc: XRAY (OOS) Service: [facility] MEDICINE (Case [id number] COMPLETE) BASW (MODIFIED) (RAD Detaile d) CPT:53089 Contrast Media : Barium Reason for Study: dysphagia ?esophageal spasm Clinical History: Report Status: Verified Date Reported: DEC 09, 2021 Date Verified: DEC 09, 2021 Stem Lead Former E-Sig:/ES/JESSIE CHENEY Report: DELISA (MODIFIED) , 12/09/2021 [...] REQUIRED Primary Interpreting Staff: JESSIE CHENEY, RADIOLOGIST (Stem Lead Former) /TLC Dec 06, 2021 12:[address] CHEST (INCLUDES ADRENALS): JESSIE CHENEY [facility] LUCAS MEEK N [id number] -1950 M [facility] Exm Date: DEC 06, 2021@12:59 Req Phys: JELANI SÁNCHEZ Pat Loc: [facility] ED DAYS M 1RD (Req'g Loc) Img Loc: CT SCAN (OOS) Service: Unknown (Case [id number] COMPLETE) CT THORAX W/O CONT (CT Detai led) CPT:92873 Reason for Study: Opacification right chest Clinical History: No contrast allergy BUN: 13 (12/06/21 12:00) CREATI: 0.90 (12/06/21 12:00) eGFR 05/16/21 09:43 52 L Weight: 232.6 lb [105.51 kg] (12/06/2021 11:40) BODY MASS INDEX - NO HEIGHTS FOUND Pager number: [phone] STAT orders MUST be called t o RADIOLOGY [phone] to speak to the appropriate auto brake technician. Indications - Other: Opacification right chest, covid positive, lung cancer histo Report Status: Verified Date Reported: DEC 06, 2021 Date Verified: DEC 06, 2021 Stem Lead Former E-Sig:/ES/JESSIE CHENEY Report: CT THORAX W/O CONT [...] REQUIRED Primary Interpreting Staff: JESSIE CHENEY, RADIOLOGIST (Stem Lead Former) Primary Interpreting Resident: PRINCE CHAMPION, Resident /ABBI Dec 06, 2021 11:58 AM CHEST SINGLE VIEW: JESSIE CHENEYT LUCAS MEEK N [id number] -1950 M [facility] Exm Date: DEC 06, 2021@11:58 Req Phys: JELANI SÁNCHEZ Pat Loc: [facility] ED DAYS M 1RD (Req'g Loc) Img Loc: XRAY (OOS) Service: Unknown (Case [id number] COMPLETE) CHEST SINGLE VIEW (RAD Detai led) CPT:91159 Proc Modifiers : PORTABLE EXAM Reason for Study: SOB, home covid test positive Clinical History: Report Status: Verified Date Reported: DEC 06, 2021 Date Verified: DEC 06, 2021 Stem Lead Former E-Sig:/ES/JESSIE CHENEY Report: Exam type: Chest x-ray [...] REQUIRED Primary Interpreting Staff: JESSIE CHENEY, RADIOLOGIST (Stem Lead Former) /TLC Pathology Reports: +/- 30 days of [...] the Encounter. The data comes from all [place] treatment facilities. Date/Time Pathology Report Provider Source Jan 03, 2022 10:28 AM LR SURGICAL PATHOLOGY REPORT: STEFANY MILLER [facility] LOCAL TITLE: LR SURGICAL PATHOLOGY REPORT [facility] STANDARD TITLE: PATHOLOGY REPORT DATE OF NOTE: JAN 03, 2022@10:28:01 ENTRY DATE: JAN 03, 2022@10:28:01 AUTHOR: NIURKA MILLER EXP COSIGNER: URGENCY: STATUS: COMPLETED $APHDR Reporting Lab: [facility] [CLIA# [id number]] [address] [place] [address] - - - - - - [...] automatically d ocumented from SURGERY package case #[id number] Field (#32) PRINCIPAL PRE-OP DIAGNOSIS, (#.72) OTHER [...] automatically d ocumented from SURGERY package case #[id number] Field (#34) PRINCIPAL POST-OP DIAG, (#.74) OTHER [...] Label: Lucas Meek Paperwork: Lucas Meek Cassette: [id number];..;KALYANI;.;405;[id number] Specimen is labeled: ES bx Received in formalin are several pieces of pale boyd and brown tissue, 1.2 x 0.7 cm in aggregate. Submitted entirely in 1 cassette [id number];..;KALYANI;.;405;[id number] SAW 12/15/2021 Microscopic exam: *+* MODIFIED REPORT [...] report in rendering the final pathologic diagnosis. [address] [address] CPT: 02598 /emely/ NIURKA Yeung MD Signed Jan 03, 2022@10:28 Performing Laboratory: Surgical Pathology Report Performed By: CAREY MONTOYA [facility] [CLIA# [id number]] [address] [place] [address] $FTR - - - - - [...] - - LUCAS MEEK STANDARD FORM 515 ID:[id number] SEX:M :1950 AGE: 71 LOC: SDM END PCP: Isatu Todd /emely/ NIURKA MILLER Staff Signed: 01/03/2022 10:28 Dec 21, 2021 11:46 AM LR SURGICAL PATHOLOGY REPORT: STEFANY MILLER [facility] LOCAL TITLE: LR SURGICAL PATHOLOGY REPORT [facility] STANDARD TITLE: PATHOLOGY REPORT DATE OF NOTE: DEC 21, 2021@11:46:59 ENTRY DATE: DEC 21, 2021@11:46:59 AUTHOR: NIURKA MILLER EXP COSIGNER: URGENCY: STATUS: COMPLETED $APHDR Reporting Lab: [facility] [CLIA# [id number]] [address] [place] [address] - - - - - - [...] automatically d ocumented from SURGERY package case #[id number] Field (#32) PRINCIPAL PRE-OP DIAGNOSIS, (#.72) OTHER [...] automatically d ocumented from SURGERY package case #[id number] Field (#34) PRINCIPAL POST-OP DIAG, (#.74) OTHER [...] Label: Lucas Meek Paperwork: Lucas Meek Cassette: [id number];..;KALYANI;.;405;[id number] Specimen is labeled: ES bx Received in formalin are several pieces of pale boyd and brown tissue, 1.2 x 0.7 cm in aggregate. Submitted entirely in 1 cassette [id number];..;KALYANI;.;405;[id number] SAW 12/15/2021 Microscopic exam: DIAGNOSIS: A. 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 Kendell long. TIARA Coombs was notified on 12/21/21. The attending pathologist who signature mansoor ears on this report has reviewed all diagnostic slides and has edited t he gross and/or microscopic portion of this report in rendering the final pathologic diagnosis. [address] [address] CPT: 16042 /emely/ NIURKA Yeung MD Signed Dec 21, 2021@11:46 Performing Laboratory: Surgical Pathology Report Performed By: [facility] [CLIA# [id number]] [address] [place] [address] $FTR - - - - - [...] - - LUCAS MEEK STANDARD FORM 515 ID:[id number] SEX:M :1950 AGE: 71 LOC: [facility] END PCP: Isatu Todd /emely/ NIURKA Yeung MD Signed: 12/21/2021 11:46 Dec 06, 2021 03:30 PM LR MICROBIOLOGY [facility] Reporting Lab: [facility] [CLIA# [id number]] [address] [place] [address] Accession [UID]: [id number] [[id number]] Receiv ed: Dec 06, 2021@16:14 Collection sample: BLOOD CUL T BOTTLE(NIRMAL/AERO)Collection date: Dec 06, 2021 15:30 Site/Specimen: BLOOD Provider: JELANI SÁNCHEZ Comment on specimen: LAC Test(s) ordered: BLOOD CULTURE ANAEROBI C....... completed: Dec 12, 2021 06:18 * BACTERIOLOGY FINAL REPORT => Dec 12, 2021 06:1 8 TECH CODE: [id number] Bacteriology Remark(s): NO GROWTH IN 5 DAYS =--=--=--=--=--=--=--=--=--=--=--=--=--= --=--=--=--=--=--=--=--=--=--=--=--=-- Performing Laboratory: Bacteriology Report Performed By: [facility] [CLIA# [id number]] [address] [place] [address] Dec 06, 2021 03:30 PM LR MICROBIOLOGY REPORT: [facility] Reporting Lab: [facility] [CLIA# [id number]] [address] [place] [address] Accession [UID]: [id number] [[id number]] Receiv ed: Dec 06, 2021@16:14 Collection sample: BLOOD CUL T BOTTLE(NIRMAL/AERO)Collection date: Dec 06, 2021 15:30 Site/Specimen: BLOOD Provider: JELANI SÁNCHEZ Comment on specimen: LAC Test(s) ordered: BLOOD CULTURE AEROBIC. ........ completed: Dec 12, 2021 06:17 * BACTERIOLOGY FINAL REPORT => Dec 12, 2021 06:1 7 TECH CODE: [id number] Bacteriology Remark(s): NO GROWTH IN 5 DAYS =--=--=--=--=--=--=--=--=--=--=--=--=--= --=--=--=--=--=--=--=--=--=--=--=--=-- Performing Laboratory: Bacteriology Report Performed By: [facility] [CLIA# [id number]] [address] [place] [address]
--- OUTSIDE RECORDS SUMMARY | 2022-01-19 08:28 | XMS_ITS ---
DAILY HOSPITALIZATION DATA [facility] Encounter Summary Created on:December 09, 2021 Patient:LUCAS MEEK Sex:Male :1950 Author Organization [facility] Address [address] [place] [id number] Support Name Relationship Address Phone YUSRA MEEK Unavailable [address] [place] [address] YUSRA MEEK Unavailable [address] [place] [address] CLAY MOSLEY Unavailable Unavailable SJ SANTACRUZ Unavailable [...] MEDICARE MEDICARE PART Jun 18, PART A [id number] DO KALYANI PATIENT (WNR) (M) A 2016 13A 1 [place]AS MEDICARE MEDICARE PART Jun 18, PART B [id number] DO KALYANI PATIENT (WNR) (M) B 2017 13A 1 [place] MEDICARE MEDICARE PART Jun 18, PART B [id number] KALYANIDO PATIENT (WNR) (M) B 2017 VH81 2 [place] MEDICARE MEDICARE PART Jun 18, PART A [id number] DO KALYANI PATIENT (WNR) (M) A 2017 VH81 2 [place] UNITED MEDICARE MCR(W Jun 18 [id number] Luz MEEK PATIENT HEALTHCARE ADVANTAGE NR) 2021 37 0 [facility] (WNR) Selected Encounter This section includes the information on record at [place] for the Encounter. Date/Time Encounter Type Encounter Description Reason Provider Source Dec 09, 2021 12:17 Inpatient Visit DAILY HOSPITALIZATION DATA PM IHE Encounter Template Text not used by [place] Plan of Treatment: Future Appointments (+ 6 months) and Future Tests (+/- 45 days) The Plan of Treatment section includes future care activities for the patient from all [place] treatmentfacilities. This section includes future appointments and [...] AMBULATORY - N[place] [facility] Jan 06, 2022 02:00 PM [place] [facility] Jan 10, 2022 11:30 AM AMBULATORY - MEDICINE [facility] Jan 24, 2022 08:00 AM [place] [facility] Feb 21, 2022 10:00 AM [place] - [place] [facility] Mar 21, [...] The data comes from all [place] treatment [facility]. Test Date/Time Test Type Test Details Facility Name October 31, 2021 07:37 AM Consult Order COMMUNITY [facility]ARE-EGD [facility] November 15, 2021 10:37 AM Consult Order [facility] CARE-PODIATRY [facility] Dec 06, 2021 12:52 PM Pharmacy [...] [place] OUTPATIENT Cons [facility] Jan 15, 2022 10:08 PM Consult Order [facility] CARE-PALLIATIVE CARE [facility] Lab Results: +/- 30 days of [...] Reference Range Comment Dec 15, 2021 [place] P4 GLU,BUN,CREAT,LYTES,CA Speci men Type: PLASMA 06:43 AM [facility] Comment: Tests performed on Panasas (405) SN:[id number] Ordering Provid er: ISATU TODD Report Released Date/Time: Dec 11, 2021 07:42 AM Reporting Lab: [facility] [address] [facility] [address] Performing Lab: [facility] [address] [facility] [address] UREA NITROGEN 9 7-25 SODIUM 137 135-145 POTASSIUM 3.8 3.5-5.0 CHLORIDE 105 100-110 CARBON DIOXIDE 26 20-30 ANION GAP 6 4-16 GLUCOSE 102 H 65-100 CREATININE 0.64 0.5-1.5 CALCIUM 8.1 L 8.5-10.5 eGFR(CKD-EPI 2020) >90.0 >60 Dec 15, 2021 06:[address] [facility] CBC PROFILE Sp ecimen Type: BLOOD No comment enter ed. Ordering Provid er: ISATU TODD Report Released Date/Time: Dec 10, 2021 07:22 AM Reporting Lab: [facility] [address] [facility] [address] Performing Lab: [facility] [address] [facility] [address] WBC 5.7 4.5-11.0 RBC 4.22 L 4.23-5.66 [...] 0.00 0-0 Dec 14, 2021 [facility] CYTOGENETIC Specimen Type: ESOPHAGUS 02:59 PM VAOC FISH([facility]) Comment: ~For T est: CYTOGENETIC FISH([facility]) ~FISH HER 2 NUE, FFPE See full report in MovieLine Image display viewer/tab#LAB-Reference Ordering Provid er: NIURKA MILLER Report Released Date/Time: Dec 21, 2021 12:11 PM Reporting Lab: [facility] [address] [facility] [address] Performing Lab: [facility] CYTOGENETIC FISH([facility]) comment Dec 14, 2021 [facility] P4 GLU,BUN,CREAT,LYTES,CA Speci men Type: PLASMA 06:27 AM [facility] Comment: Tests performed on Panasas (405) SN:[id number] Ordering Provid er: ISATU TODD Report Released Date/Time: Dec 11, 2021 07:42 AM Reporting Lab: [facility] [address] [facility] [address] Performing Lab: [facility] [address] [facility] [address] UREA NITROGEN 10 7-25 SODIUM 137 135-145 [...] HOSPITAL [address] [facility] [address] Performing Lab: [facility] [address] [facility] [address] WBC 6.0 4.5-11.0 RBC 4.29 4.23-5.66 HGB [...] 0.00 0-0 Dec 13, 2021 [facility] P4 GLU,BUN,CREAT,LYTES,CA Speci men Type: PLASMA 06:34 AM [facility] Comment: Tests performed on Panasas (405) SN:[id number] Ordering Provid er: ISATU TODD Report Released Date/Time: Dec 11, 2021 07:42 AM Reporting Lab: [facility] [address] [facility] [address] Performing Lab: [facility] [address] [facility] [address] UREA NITROGEN 12 7-25 SODIUM 136 135-145 [...] HOSPITAL [address] [facility] [address] Performing Lab: [facility] [address] [facility] [address] WBC 5.6 4.5-11.0 RBC 4.28 4.23-5.66 HGB [...] 0.00 0-0 Dec 12, 2021 [facility] P4 GLU,BUN,CREAT,LYTES,CA Speci men Type: PLASMA 06:21 AM [facility] Comment: Tests performed on Panasas (405) SN:[id number] Ordering Provid er: ISATU TODD Report Released Date/Time: Dec 11, 2021 07:42 AM Reporting Lab: [facility] [address] [facility] [address] Performing Lab: [facility] [address] [facility] [address] UREA NITROGEN 11 7-25 SODIUM 139 135-145 [...] 10, 2021 07:22 AM Reporting Lab: [facility] [address] [facility] [address] Performing Lab: [facility] [address] [facility] [address] WBC 5.5 4.5-11.0 RBC 4.37 4.23-5.66 HGB [...] 0.00 0-0 Dec 12, 2021 06:00 AM PeakStreamT [facility] MAGNESIUM Sp ecimen Type: PLASMA Comment: Testin g Performed on Panasas (405) SN:[id number] Ordering Provid er: ISATU TODD Report Released Date/Time: Dec 12, 2021 08:24 AM Reporting Lab: [facility] Drive[facility]T [facility] [address] [facility] [address] Performing Lab: Definicare SHINER DriveHQT Modern Boutique[facility] [address] [facility] [address] MAGNESIUM 1.8 1.6-2.6 Dec 12, 2021 06:00 AM PeakStreamT [facility] BoutiqueMROC PHOSPHORUS Sp ecimen Type: PLASMA Comment: Testin g Performed on Panasas (405) SN:[id number] Ordering Provid er: ISATU TODD Report Released Date/Time: Dec 12, 2021 08:24 AM Reporting Lab: [facility] DriveHQT [facility] [address] [facility] [address] Performing Lab: [facility] DriveHQT [facility]ique[facility] [address] [facility] [address] PHOSPHORUS 3.1 2.5-5.0 Dec 11, 2021 06:15 AM Definicare SHINER DriveHQT Modern BoutiqueMROC ELECTROLYTES Sp ecimen Type: PLASMA Comment: Tests performed on Panasas (405) SN:[id number] Ordering Provid er: ISATU TODD Report Released Date/Time: Dec 10, 2021 07:22 AM Reporting Lab: [facility] DriveHQT [facility] [address] [facility] [address] Performing Lab: [facility] DriveHQT [facility] [address] [facility] [address] SODIUM 137 135-145 POTASSIUM 4.3 3.5-5.0 CHLORIDE 108 100-110 CARBON DIOXIDE 20 20-30 ANION GAP 9 4-16 Dec 11, 2021 06:15 AM [place] [facility] FourthT [facility] CBC PROFILE Sp ecimen Type: BLOOD Comment: Result s checked Ordering Provid er: ISATU TODD Report Released Date/Time: Dec 10, 2021 07:22 AM Reporting Lab: [place] OMEGAT [facility] [address] [facility] [address] Performing Lab: [facility] SHINER OMEGAT [facility] [address] [facility] [address] WBC 5.8 4.5-11.0 RBC 4.37 4.23-5.66 HGB [...] 0-0 Dec 11, 2021 06:00 AM [facility] PHOSPHORUS Sp ecimen Type: PLASMA Comment: Tests performed on Panasas (263) SN:[id number] Results checked Ordering Provid er: ISATU TODD Report Released Date/Time: Dec 11, 2021 07:44 AM Reporting Lab: [facility] [address] [facility] [address] Performing Lab: [place] OMEGAT [facility] [address] [facility] [address] PHOSPHORUS 3.0 2.5-5.0 Dec 10, 2021 08:05 AM [place] [facility] MAGNESIUM Sp ecimen Type: PLASMA Comment: [place] [id number] on Dec 10, 2021@08:31 Tests performed on Panasas (405) SN:[id number] Ordering Provid er: ISATU TODD Report Released Date/Time: Dec 10, 2021 07:22 AM Reporting Lab: [place] [facility] [address] [place] [facility] [place] [address] Performing Lab: [place] [facility] [address] [place] [facility] [place] [address] MAGNESIUM 1.7 1.6-2.6 Dec 10, 2021 08:05 AM [place] [facility] PHOSPHORUS Sp ecimen Type: PLASMA Comment: [place] [id number] on Dec 10, 2021@08:31 Tests performed on Panasas (405) SN:[id number] Ordering Provid er: ISATU TODD Report Released Date/Time: Dec 10, 2021 07:22 AM Reporting Lab: [place] [facility] [address] [place] [facility] [place] [address] Performing Lab: [place] [facility] [address] [place] [facility] [place] [address] PHOSPHORUS 1.8 L 2.5-5.0 Dec 10, 2021 08:05 AM [place] UREA NITROGEN Specimen Type: PLASMA [facility] Comment: [place] [id number] on Dec 10, 2021@08:31 Tests performed on Panasas (405) SN:[id number] Ordering Provid er: ISATU TODD Report Released Date/Time: Dec 10, 2021 07:22 AM Reporting Lab: [place] [facility] [address] [place] [facility] [place] [address] Performing Lab: [place] [facility] [address] [place] [facility] [place] [address] UREA NITROGEN 8 7-25 Dec 10, 2021 08:05 AM [place] [facility] GLUCOSE Sp ecimen Type: PLASMA Comment: [place] [id number] on Dec 10, 2021@08:31 Tests performed on Panasas (405) SN:[id number] Ordering Provid er: ISATU TODD Report Released Date/Time: Dec 10, 2021 07:22 AM Reporting Lab: [place] [facility] [address] [facility] [address] Performing Lab: [place] [facility] [address] [facility] [address] GLUCOSE 144 H 65-100 Dec 10, 2021 08:05 AM [place] [facility] ELECTROLYTES Sp ecimen Type: PLASMA Comment: [place] [id number] on Dec 10, 2021@08:31 Tests performed on Panasas (405) SN:[id number] Ordering Provid er: ISATU TODD Report Released Date/Time: Dec 10, 2021 07:22 AM Reporting Lab: [place] [facility] [address] [facility] [address] Performing Lab: [place] [facility] [address] [facility] [address] SODIUM 139 135-145 POTASSIUM 3.7 3.5-5.0 CHLORIDE 107 100-110 CARBON DIOXIDE 24 20-30 ANION GAP 8 4-16 Dec 10, 2021 08:05 AM [place] [facility] CALCIUM Sp ecimen Type: PLASMA Comment: [place] [id number] on Dec 10, 2021@08:31 Tests performed on Panasas (405) SN:[id number] Ordering Provid er: ISATU TODD Report Released Date/Time: Dec 10, 2021 07:22 AM Reporting Lab: [place] [facility] [address] [facility] [address] Performing Lab: [place] [facility] [address] [facility] [address] CALCIUM 8.3 L 8.5-10.5 Dec 10, 2021 08:05 AM [place] [facility] CBC PROFILE Sp ecimen Type: BLOOD No comment enter ed. Ordering Provid er: ISATU TODD Report Released Date/Time: Dec 10, 2021 07:22 AM Reporting Lab: [place] [facility] [address] [facility] [address] Performing Lab: [place] [facility] [address] [facility] [address] WBC 7.0 4.5-11.0 RBC 4.54 4.23-5.66 HGB [...] PLASMA AM [facility] PANEL Comment: [place] [id number] on Dec 10, 2021@08:31 Tests performed on Panasas (405) SN:[id number] Ordering Provid er: ISATU TODD Report Released Date/Time: Dec 10, 2021 07:22 AM Reporting Lab: [facility] [address] [facility] [address] Performing Lab: [facility] [address] [facility] [address] CREATININE 0.78 0.5-1.5 eGFR(CKD-EPI 2020) >90.0 >60 Dec 09, 2021 06:46 AM [place] [facility] MAGNESIUM Sp ecimen Type: PLASMA Comment: Tests performed on Panasas (405) SN:[id number] Ordering Provid er: ISATU TODD Report Released Date/Time: Dec 08, 2021 10:23 AM Reporting Lab: [place] [facility] [address] [facility] [address] Performing Lab: [place] [facility] [address] [facility] [address] MAGNESIUM 1.6 1.6-2.6 Dec 09, 2021 06:46 AM [facility] CBC PROFILE Sp ecimen Type: BLOOD No comment enter ed. Ordering Provid er: ISATU TODD Report Released Date/Time: Dec 08, 2021 05:00 PM Reporting Lab: [facility] [address] [facility] [address] Performing Lab: [facility] [address] [facility] [address] WBC 7.1 4.5-11.0 RBC 4.40 4.23-5.66 HGB [...] ABSOLUTE NRBC 0.00 0-0 Dec 09, 2021 [facility] P4 GLU,BUN,CREAT,LYTES,CA Speci men Type: PLASMA 06:46 AM [facility] Comment: Tests performed on Panasas (242) SN:[id number] Ordering Provid er: ISATU TODD Report Released Date/Time: Dec 08, 2021 05:00 PM Reporting Lab: [facility] [address] [facility] [address] Performing Lab: [place] [facility] [address] [facility] [address] UREA NITROGEN 6 L 7-25 SODIUM 134 L 135-145 POTASSIUM 3.7 3.5-5.0 CHLORIDE 103 100-110 CARBON DIOXIDE 23 20-30 ANION GAP 8 4-16 GLUCOSE 112 H 65-100 CREATININE 0.70 0.5-1.5 CALCIUM 8.1 L 8.5-10.5 eGFR(CKD-EPI 2020) >90.0 >60 Dec 08, 2021 06:39 AM [facility] MAGNESIUM Sp ecimen Type: PLASMA Comment: Testin g Performed on Pham State Game Warden (405) SN:[id number] Ordering Provid er: ISATU TODD Report Released Date/Time: Dec 07, 2021 10:32 AM Reporting Lab: [facility] [address] [facility] [address] Performing Lab: [facility] [address] [facility] [address] MAGNESIUM 1.5 L 1.6-2.6 Dec 08, 2021 [facility] P4 GLU,BUN,CREAT,LYTES,CA Speci men Type: PLASMA 06:39 AM [facility] Comment: Testin g Performed on Panasas (405) SN:[id number] Ordering Provid er: ISATU TODD Report Released Date/Time: Dec 07, 2021 10:32 AM Reporting Lab: [facility] [address] [facility] [address] Performing Lab: [facility] [address] [facility] [address] UREA NITROGEN 6 L 7-25 SODIUM 136 135-145 POTASSIUM 3.3 L 3.5-5.0 CHLORIDE 104 100-110 CARBON DIOXIDE 22 20-30 ANION GAP 10 4-16 GLUCOSE 133 H 65-100 CREATININE 0.76 0.5-1.5 CALCIUM 8.4 L 8.5-10.5 eGFR(CKD-EPI 2020) >90.0 >60 Dec 08, 2021 06:[address] [facility] CBC PROFILE Sp ecimen Type: BLOOD No comment enter ed. Ordering Provid er: ISATU TODD Report Released Date/Time: Dec 07, 2021 10:32 AM Reporting Lab: [facility] [address] [facility] [address] Performing Lab: [facility] [address] [facility] [address] WBC 8.4 4.5-11.0 RBC 4.75 4.23-5.66 HGB [...] NRBC 0.00 0-0 Dec 07, 2021 [facility] P4 GLU,BUN,CREAT,LYTES,CA Speci men Type: PLASMA 06:42 AM [facility] Comment: Tests performed on Panasas (405 SN:[id number] Ordering Provid er: PORFIRIO WALTERS Report Released Date/Time: Dec 06, 2021 06:57 PM Reporting Lab: [facility] [address] [facility] [address] Performing Lab: [facility] [address] [facility] [address] UREA NITROGEN 9 7-25 SODIUM 135 135-145 POTASSIUM 3.5 3.5-5.0 CHLORIDE 103 100-110 CARBON DIOXIDE 22 20-30 ANION GAP 10 4-16 GLUCOSE 92 65-100 CREATININE 0.73 0.5-1.5 CALCIUM 8.0 L 8.5-10.5 eGFR(CKD-EPI 2020) >90.0 >60 Dec 07, 2021 06:42 [place] LIVER PROFILE Specimen Typ e: PLASMA AM [facility] Comment: Tests performed on MAT[employer] State Game Warden (405) SN:[id number] Ordering Provid er: PORFIRIO WALTERS Report Released Date/Time: Dec 06, 2021 06:57 PM Reporting Lab: [facility] [address] [facility] [address] Performing Lab: [facility] [address] [facility] [address] PROTEIN, TOTAL 5.7 L 6.0-8.5 ALBUMIN 2.4 L 3.2-5.0 BILIRUBIN, TOTAL 0.4 0.2-1.2 ALKALINE PHOSPHATASE 109 40-150 ALT(SGPT) 10 7-52 AST(SGOT) 15 5-34 FIB-4 SCORE 1.92 <2.67 Dec 07, 2021 06:42 AM [facility] CBC PROFILE Specimen Type: BLOOD [facility] No comment enter ed. Ordering Provid er: PORFIRIO WALTERS Report Released Date/Time: Dec 06, 2021 06:57 PM Reporting Lab: [facility] [address] [facility] [address] Performing Lab: [facility] [address] [facility] [address] WBC 5.7 4.5-11.0 RBC 4.15 L 4.23-5.66 [...] [facility]AM[facility]OC %) AUTOMATED Comment: Tests performed on Panasas (405) SN:[id number] Ordering Provid er: ISATU TODD Report Released Date/Time: Dec 07, 2021 10:28 AM Reporting Lab: [place] [facility] [address] [facility] [address] Performing Lab: [place] [facility] [address] [facility] [address] RETICULOCYTES (%) AUTOMATED 1.23 0. 6-2.0 RETICULOCYTES (ABS) AUTOMATED 0.052 0.030-0.090 Dec 06, 2021 09:45 [place] MRSA SURVL NARES Specimen Ty pe: NARES PM [facility] DNA No comment enter ed. Ordering Provid er: ALVARO VARGHESE Report Released Date/Time: Dec 07, 2021 02:20 AM Reporting Lab: [place] [facility] [address] [facility] [address] Performing Lab: [place] [facility] [address] [facility] [address] MRSA SURVL NARES DNA NEGATIVE NEGATIVE Dec 06, 2021 06:00 [place] URINALYSIS W/REFLEX TO Speci men Type: URINE PM [facility] CULTURE No comment enter ed. Ordering Provid er: JELANI SÁNCHEZ Report Released Date/Time: Dec 06, 2021 11:57 AM Reporting Lab: [place] [facility] [address] [facility] [address] Performing Lab: [place] [facility] [address] [facility] [address] URINE COLOR Arlin YELLOW SPECIFIC GRAVITY 1.029 [...] 21, RIVER VARIANT Comment: https://www.cdc.gov/coronavirus/2019-ncov/cases-updates/variant- surveillance/variant-info.html The CME SARS CoV 2 [employer] Research Assay-GX is a next-generation sequencing (NGS) assa 2021 [facility] SEQUENCING y that determine s the complete genome sequence of the SARS-CoV-2 virus. The assay contains variant-tolerant primers to broaden and improve the coverage for variant detection and increase the sensitivity 12:00 [facility] PNL(WH) of the panel to enable detection from lower viral titer samples. The assay is run on the [employer] Sequencer, which performs automated library preparation, sequencing, analysis, and reporting. PM The sequence an alysis includes determination of viral phylogenetic lineage by comparison to the reference strain Wuhan-Hu-1, GenBank: [id number]. Sequence determination may not be possible owing [...] and its performance characteristics determined by the [facility] Molecular Diagnostics Laboratory, which is certified under the Clinical Laboratory Improveme nt Amendments (C MARCO) as qualified to perform high complexity clinical laboratory testing. This test is validated for clinical use at [facility] and should not be regarded as investigational or for research. The FDA does not require this test to go through premarket FDA review, and therefore it has not been cleared or approved by the FDA. This report was reviewed and approved by the on-service pathologist. Ordering Provid er: JELANI SÁNCHEZ Report Released Date/Time: Dec 06, 2021 01:13 PM Reporting Lab: [facility] [address] [facility] [address] Performing Lab: [facility] [address] [facility] [address] SARS-CoV-2 CLADE() 22C (OMICRON) SARS-CoV-2 LINEAGE() BA.2.12.1 Dec 06, 2021 12:00 [facility] COVID-19 AG SCREEN Specimen Type: NASAL CAVITY PM [facility] PANEL BINAX(405) Comment: Testi ng Performed By: Mike Briscoe Ordering Provid er: JELANI SÁNCHEZ Report Released Date/Time: Dec 08, 2021 08:23 AM Reporting Lab: [facility] [address] [facility] [address] Performing Lab: [facility] [address] [facility] [address] COVID-19 AG SCRN(wrj BINAX) POSITIVE HH NE G Dec 06, 2021 12:00 PM [facility] TROPONIN II Sp ecimen Type: PLASMA Comment: Tests performed on [employer] (405) SN:[id number] Ordering Provid er: JELANI SÁNCHEZ Report Released Date/Time: Dec 06, 2021 11:57 AM Reporting Lab: [facility] [address] [place] [place] [address] Performing Lab: [facility] [address] [facility] [address] TROPONIN II 0.03 0.00-0.29 Dec 06, 2021 12:00 PM [facility] LIVER PROFILE Sp ecimen Type: PLASMA Comment: Testin g Performed on [employer] (405) SN:[id number] Ordering Provid er: JELANI SÁNCHEZ Report Released Date/Time: Dec 06, 2021 11:57 AM Reporting Lab: [facility] [address] [facility] [address] Performing Lab: [facility] [address] [facility] [address] PROTEIN, TOTAL 6.6 6.0-8.5 ALBUMIN 2.8 L 3.2-5.0 BILIRUBIN, TOTAL 0.6 0.2-1.2 ALKALINE PHOSPHATASE 134 40-150 ALT(SGPT) 13 7-52 AST(SGOT) 18 5-34 FIB-4 SCORE 1.94 <2.67 Dec 06, 2021 [facility] P4 GLU,BUN,CREAT,LYTES,CA Speci men Type: PLASMA 12:00 PM [facility] Comment: Testin g Performed on [employer] (405) SN:[id number] Ordering Provid er: JELANI SÁNCHEZ Report Released Date/Time: Dec 06, 2021 11:57 AM Reporting Lab: [facility] [address] [facility] [address] Performing Lab: [facility] [address] [facility] [address] UREA NITROGEN 13 7-25 SODIUM 138 135-145 POTASSIUM 3.8 3.5-5.0 CHLORIDE 103 100-110 CARBON DIOXIDE 23 20-30 ANION GAP 12 4-16 GLUCOSE 105 H 65-100 CREATININE 0.90 0.5-1.5 CALCIUM 8.7 8.5-10.5 eGFR(CKD-EPI 2020) >90.0 >60 Dec 06, 2021 [facility] COVID-19+FLU/RSV DIAGNOSTIC Spe cimen Type: NASOPHARYNX 12:00 PM [facility] PANEL(405) Comment: Tests performed on [employer] (405) Critical results called to and read back by: ALESHIA WILKINSON RN 12/06/21 @ 1312 Ordering Provid er: JELANI SÁNCHEZ Report Released Date/Time: Dec 06, 2021 11:57 AM Reporting Lab: [facility] [address] [facility] [address] Performing Lab: [facility] [address] [place] [facility] [place] [address] FLU A(PCR) NEGATIVE NEGATIVE FLU B(PCR) NEGATIVE NEGATIVE RSV(PCR) NEGATIVE NEGATIVE COVID-19([id number]) DETECTED HH NO T DETECTED Dec 06, 2021 12:00 PM [facility] BNP(P) Sp ecimen Type: PLASMA Comment: Tests performed on [employer] (405) SN:[id number] Ordering Provid er: JELANI SÁNCHEZ Report Released Date/Time: Dec 06, 2021 11:57 AM Reporting Lab: [facility] [address] [facility] [address] Performing Lab: [facility] [address] [facility] [address] BNP(P) 224.8 H 10-100 Dec 06, 2021 12:00 PM [facility] CBC PROFILE Sp ecimen Type: BLOOD No comment enter ed. Ordering Provid er: JELANI SÁNCHEZ Report Released Date/Time: Dec 06, 2021 11:57 AM Reporting Lab: [facility] [address] [facility] [address] Performing Lab: [facility] [address] [facility] [address] WBC 7.2 4.5-11.0 RBC 4.86 4.23-5.66 HGB [...] Dec 09, 0 2021 10:43 [place] PM [facility] Dec 09, 98.2 F 82 111/58 18 /min 97 % 2021 08:31 /min mm[Hg] RIVER PM [facility] Dec 09, 98.3 F 106 113/69 18 /min 97 % WHITE 2021 02:37 /min mm[Hg] RIVER PM T [facility] Dec 09, 0 2021 11:42 RIVER AM [facility] Dec 09, 97.1 F 94 120/73 16 /min 98 % 0 WHITE 2021 07:40 /min mm[Hg] RIVER AM [facility] Social History: Smoking [...] place. Date/Time Smoking Status/Tobacco Use Comment [facility] Apr 01, 2020 01:16 PM QUIT TOBACCO USE 1-7 YEARS AGO [facility] Mar 24, 2020 03:00 PM QUIT TOBACCO USE 1-7 YEARS AGO [facility] Feb 21, 2019 04:11 PM QUIT TOBACCO USE 1-7 YEARS AGO [facility] Feb 20, 2019 03:38 PM QUIT TOBACCO USE 1-7 YEARS AGO [facility] Feb 03, 2019 09:50 AM QUIT TOBACCO USE 1-7 YEARS AGO [facility] May 25, 2016 11:53 PM QUIT TOBACCO USE IN PAST YEAR [facility] May 23, 2016 06:57 PM QUIT TOBACCO USE > 7 YEARS AGO [facility] May 19, 2016 03:55 PM QUIT TOBACCO USE IN PAST YEAR [facility] May 19, 2016 10:29 AM QUIT TOBACCO USE 1-7 YEARS AGO [facility] May 01, 2016 07:26 PM QUIT TOBACCO USE IN PAST YEAR CAERY DOYLE [facility] May 01, 2016 03:11 PM QUIT TOBACCO USE IN PAST YEAR CAREY DOYLE [facility] May 01, 2016 11:19 AM QUIT TOBACCO USE IN PAST YEAR [facility] DOYLE [place] [facility] Mar 16, 2016 12:50 PM V1-PT DECLINES REF TO TOBACCO [facility] DOYLE [place] [facility] CESS PRGM Mar 16, 2016 [...] comes from all [place] treatment facilities. Date/Time Radiology Report Provider Source Dec 13, 2021 12:57 PM MRI ABDOMEN W/WO CONTRAST: MARYELLEN LONG LUCAS LARES N [id number] -1950 [facility] Exm Date: DEC 13, 2021@12:57 Req Phys: ISATU TODD Loc: OP Unknown/0 12-15-2021@13:20 Img Loc: MRI IMAGING (OOS) Service: [facility] MEDICINE (Case [id number] COMPLETE) MRI ABDOMEN W/WO CONTRAST (M RI Detailed) CPT:11211 Reason for Study: further characterization of a [...] new lyphadenopathy REQUESTING MD: Isatu Todd PAGER: [phone] PHONE: [phone] Weight: 232.2 lb [105.32 kg] (12/12/2021 05:00) [...] patient will need to arrange for a driver's license reviewing officer to take him/her home after the MRI [...] 15, 2021 Date Verified: DEC 15, 2021 Business Analytics Analyst E-Sig:/ES/MARYELLEN LONG Report: MRI ABDOMEN W/WO [...] MALIGNANCY Primary Interpreting Staff: Staff AMELIA THOMAS (Business Analytics Analyst) / Dec 10, 2021 09:[address] ABDOMEN & PELVIS: RADIOLOGY,OUTSIDE [facility] LUCAS MEEK N [id number] -1950 M SERVICE [facility] Exm Date: DEC 10, 2021@09:30 Req Phys: ISATU TODD Loc: 1S MED/12-10@10:57 Img Loc: CT SCAN (OOS) Service: [facility] (Case [id number] COMPLETE) CT ABD & PELVIS WITHOUT CONT RAST (CT Detailed) CPT:58346 Reason for Study: 71 yo male with [...] INDEX - NO HEIGHTS FOUND Pager number: [phone] STAT orders MUST be call ed to RADIOLOGY [phone] to speak to the appropriate ruling technician. Report Status: Verified Date Reported: DEC 10, 2021 Date Verified: DEC 10, 2021 Business Analytics Analyst E-Sig: Report: EXAM: CT abdomen and [...] ph nodes. READING PHYSICIAN: Ramone Munoz D.O. [phone] 12/10/2021 10:[address] [facility] National Teleradiology Program [phone] (For Medical Practitioner Use Only ) [address] [facility], [facility] [address] [place] [address] Attention Patients / Veterans: If you have ques tions or concerns about these test results, please contact your o rdering provider or primary care team. Primary Diagnostic Code: SIGNIFICANT ABNORMALIT Y, ATTN NEEDED Primary Interpreting Staff: RADIOLOGY,OUTSIDE SERVICE, Staff Physician / Dec 09, 2021 07:34 AM BASW (MODIFIED): JESSIE CHENEY [facility] LUCAS MEEK N [id number] -1950 M [facility] Exm Date: DEC 09, 2021@07:34 Req Phys: ISATU TODD Loc: 1S MED/12-09@11:26 Img Loc: XRAY (OOS) Service: [facility] MEDICINE (Case [id number] COMPLETE) BASW (MODIFIED) (RAD Detaile d) CPT:92512 Contrast Media : Barium Reason for Study: dysphagia ?esophageal spasm Clinical History: Report Status: Verified Date Reported: DEC 09, 2021 Date Verified: DEC 09, 2021 Business Analytics Analyst E-Sig:/ES/JESSIE CHENEY Report: DELISA (MODIFIED) , [...] REQUIRED Primary Interpreting Staff: JESSIE CHENEY, RADIOLOGIST (Business Analytics Analyst) /TLC Dec 06, 2021 12:[address] CHEST (INCLUDES ADRENALS): JESSIE CHENEY [facility] LUCAS MEEK N [id number] -1950 M [facility] Exm Date: DEC 06, 2021@12:59 Req Phys: JELANI SÁNCHEZ Pat Loc: [facility] ED DAYS M 1RD (Req'g Loc) Img Loc: CT SCAN (OOS) Service: Unknown (Case [id number] COMPLETE) CT THORAX W/O CONT (CT Detai led) CPT:47489 Reason for Study: Opacification right chest Clinical History: No contrast allergy BUN: 13 (12/06/21 12:00) CREATI: 0.90 (12/06/21 12:00) eGFR 05/16/21 09:43 52 L Weight: 232.6 lb [105.51 kg] (12/06/2021 11:40) BODY MASS INDEX - NO HEIGHTS FOUND Pager number: [phone] STAT orders MUST be called t o RADIOLOGY [phone] to speak to the appropriate ruling technician. Indications - Other: Opacification right chest, covid positive, lung cancer histo Report Status: Verified Date Reported: DEC 06, 2021 Date Verified: DEC 06, 2021 Business Analytics Analyst E-Sig:/ES/JESSIE CHENEY Report: CT THORAX W/O [...] REQUIRED Primary Interpreting Staff: JESSIE CHENEY, RADIOLOGIST (Business Analytics Analyst) Primary Interpreting Resident: PRINCE CHAMPION, Resident /ABBI Dec 06, 2021 11:58 AM CHEST SINGLE VIEW: JESSIE CHENEYT LUCAS MEEK N [id number] -1950 [facility] Exm Date: DEC 06, 2021@11:58 Req Phys: JELANI SÁNCHEZ Pat Loc: [facility] ED DAYS M 1RD (Req'g Loc) Img Loc: XRAY (OOS) Service: Unknown (Case [id number] COMPLETE) CHEST SINGLE VIEW (RAD Detai led) CPT:06183 Proc Modifiers : PORTABLE EXAM Reason for Study: SOB, home covid test positive Clinical History: Report Status: Verified Date Reported: DEC 06, 2021 Date Verified: DEC 06, 2021 Business Analytics Analyst E-Sig:/ES/JESSIE CHENEY Report: Exam type: Chest [...] REQUIRED Primary Interpreting Staff: JESSIE CHENEY, RADIOLOGIST (Business Analytics Analyst) /TLC Pathology Reports: +/- 30 days [...] AM LR SURGICAL PATHOLOGY REPORT: STEFANY MILLER [facility] LOCAL TITLE: LR SURGICAL PATHOLOGY REPORT [facility] STANDARD TITLE: PATHOLOGY REPORT DATE OF NOTE: JAN 03, 2022@10:28:01 ENTRY DATE: JAN 03, 2022@10:28:01 AUTHOR: NIURKA MILLER EXP COSIGNER: URGENCY: STATUS: COMPLETED $APHDR Reporting Lab: [facility] [CLIA# [id number]] [address] [place] [address] - - - - - - [...] automatically d ocumented from SURGERY package case #[id number] Field (#32) PRINCIPAL PRE-OP DIAGNOSIS, (#.72) OTHER [...] automatically d ocumented from SURGERY package case #[id number] Field (#34) PRINCIPAL POST-OP DIAG, (#.74) OTHER [...] Label: Lucas Meek Paperwork: Lucas Meek Cassette: [id number];..;KALYANI;.;405;[id number] Specimen is labeled: ES bx Received in formalin are several pieces of pale boyd and brown tissue, 1.2 x 0.7 cm in aggregate. Submitted entirely in 1 cassette [id number];..;KALYANI;.;405;[id number] SAW 12/15/2021 Microscopic exam: *+* MODIFIED REPORT *+* (Last modified: JAN 03, 2022@09:30:20 typed by NIURKA WADDELL) DIAGNOSIS: A. 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 Kendell long. TIARA Coombs was notified on 12/21/21. Modified on 01/03/22 to include report from [facility] stating that tumor is NEGATIVE for her2/ matheus amplification. The attending pathologist who signature mansoor ears on this report has reviewed all diagnostic slides and has edited t he gross and/or microscopic portion of this report in rendering the final pathologic diagnosis. [address] [address] CPT: 05363 /emely/ NIURKA Yeung MD Signed Jan 03, 2022@10:28 Performing Laboratory: Surgical Pathology Report Performed By: CAREY MONTOYA [facility] [CLIA# [id number]] [address] [place] [address] $FTR - - - - - [...] - - LUCAS MEEK STANDARD FORM 515 ID:[id number] SEX:M :1950 AGE: 71 LOC: SDM END PCP: Isatu Todd /emely/ NIURKA MILLER Staff Signed: 01/03/2022 10:28 Dec 21, 2021 11:46 AM LR SURGICAL PATHOLOGY REPORT: STEFANY MILLER [facility] LOCAL TITLE: LR SURGICAL PATHOLOGY REPORT [facility] STANDARD TITLE: PATHOLOGY REPORT DATE OF NOTE: DEC 21, 2021@11:46:59 ENTRY DATE: DEC 21, 2021@11:46:59 AUTHOR: NIURKA MILLER EXP COSIGNER: URGENCY: STATUS: COMPLETED $APHDR Reporting Lab: [facility] [CLIA# [id number]] [address] [place] [address] - - - - - - [...] automatically d ocumented from SURGERY package case #[id number] Field (#32) PRINCIPAL PRE-OP DIAGNOSIS, (#.72) OTHER [...] automatically d ocumented from SURGERY package case #[id number] Field (#34) PRINCIPAL POST-OP DIAG, (#.74) OTHER [...] Label: Lucas Meek Paperwork: Lucas Meek Cassette: [id number];..;KALYANI;.;405;[id number] Specimen is labeled: ES bx Received in formalin are several pieces of pale boyd and brown tissue, 1.2 x 0.7 cm in aggregate. Submitted entirely in 1 cassette [id number];..;KALYANI;.;405;[id number] SAW 12/15/2021 Microscopic exam: DIAGNOSIS: A. 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 Kendell long. TIARA Coombs was notified on 12/21/21. The attending pathologist who signature mansoor ears on this report has reviewed all diagnostic slides and has edited t he gross and/or microscopic portion of this report in rendering the final pathologic diagnosis. [address] [address] CPT: 01796 /emely/ NIURKA Yeung MD Signed Dec 21, 2021@11:46 Performing Laboratory: Surgical Pathology Report Performed By: [facility] [CLIA# [id number]] [address] [place] [address] $FTR - - - - - [...] - - LUCAS MEEK STANDARD FORM 515 ID:[id number] SEX:M :1950 AGE: 71 LOC: [facility] END PCP: Isatu Todd /emely/ NIURKA Yeung MD Signed: 12/21/2021 11:46 Dec 06, 2021 03:30 PM LR MI[facility]BIOLOGY [facility] Reporting Lab: [facility] [CLIA# [id number]] [address] [place] [address] Accession [UID]: [id number] [[id number]] Receiv ed: Dec 06, 2021@16:14 Collection sample: BLOOD CUL T BOTTLE(NIRMAL/AERO)Collection date: Dec 06, 2021 15:30 Site/Specimen: BLOOD Provider: JELANI SÁNCHEZ Comment on specimen: LAC Test(s) ordered: BLOOD CULTURE ANAEROBI C....... completed: Dec 12, 2021 06:18 * BACTERIOLOGY FINAL REPORT => Dec 12, 2021 06:1 8 TECH CODE: [id number] Bacteriology Remark(s): NO GROWTH IN 5 DAYS =--=--=--=--=--=--=--=--=--=--=--=--=--= --=--=--=--=--=--=--=--=--=--=--=--=-- Performing Laboratory: Bacteriology Report Performed By: [facility] [CLIA# [id number]] [address] [place] [address] Dec 06, 2021 03:30 PM LR MICROBIOLOGY REPORT: [facility] Reporting Lab: [facility] [CLIA# [id number]] [address] [place] [address] Accession [UID]: [id number] [[id number]] Receiv ed: Dec 06, 2021@16:14 Collection sample: BLOOD CUL T BOTTLE(NIRMAL/AERO)Collection date: Dec 06, 2021 15:30 Site/Specimen: BLOOD Provider: JELANI SÁNCHEZ Comment on specimen: LAC Test(s) ordered: BLOOD CULTURE AEROBIC. ........ completed: Dec 12, 2021 06:17 * BACTERIOLOGY FINAL REPORT => Dec 12, 2021 06:1 7 TECH CODE: [id number] Bacteriology Remark(s): NO GROWTH IN 5 DAYS =--=--=--=--=--=--=--=--=--=--=--=--=--= --=--=--=--=--=--=--=--=--=--=--=--=-- Performing Laboratory: Bacteriology Report Performed By: [facility] [CLIA# [id number]] [address] [place] [address]
--- OUTSIDE RECORDS SUMMARY | 2022-01-19 08:28 | XMS_ITS ---
DAILY HOSPITALIZATION DATA [facility] Encounter Summary Created on:December 09, 2021 Patient:LUCAS MEEK Sex:Male :1950 Author Organization [facility] Address [address] [place] [id number] Support Name Relationship Address Phone YUSRA MEEK Unavailable [address] [place] [address] YUSRA MEEK Unavailable [address] [place] [facility] [place] [address] CLAY MOSLEY Unavailable Unavailable SJ SANTACRUZ Unavailable [...] MEDICARE MEDICARE PART Jun 18, PART A [id number] KALYANI PATIENT (WNR) (M) A 2016 13A 1 U[place]AS MEDICARE MEDICARE PART Jun 18, PART A [id number] MEEK DO PATIENT (WNR) (M) A 2017 VH81 2 [place] MEDICARE MEDICARE PART Jun 18, PART B [id number] KALYANIDO PATIENT (WNR) (M) B 2016 VH81 2 [place] MEDICARE MEDICARE PART Jun 18, PART B [id number] DO KALYANI PATIENT (WNR) (M) B 2016 13A 1 [place] UNITED MEDICARE MCR(Jun 18 [id number] Luz MEEK PATIENT HEALTHCARE ADVANTAGE NR) 2021 37 0 UGLAS MCR (WNR) Selected Encounter This section includes the information on record at [place] for the Encounter. Date/Time Encounter Type Encounter Description Reason Provider Source Dec 09, 2021 11:47 Inpatient Visit DAILY HOSPITALIZATION DATA AM [facility] Encounter Template Text not used by [place] [...] AM AMBUL[place]ORY - N[place] [facility] Jan 06, 2022 02:00 PM [place] [facility] Jan 10, 2022 11:30 AM AM[facility]ULATORY - MEDICINE [facility] Jan 24, 2022 08:00 [place] [facility] Feb 21, 2022 10:00 AM [place] [facility] Mar 21, 2022 10:30 [...] The data comes from all [place] treatment [facility]. Test Date/Time Test Type Test Details Facility Name October 31, 2021 07:37 AM Consult Order COMMUNITY CARE-EGD [facility] Cons Order Entry Technician's Choice November 15, 2021 10:37 AM Consult Order [facility] CARE-PODIATRY Cons Order Entry Technician's Choice Dec 06, 2021 12:52 PM [...] [place] OUTPATIENT Cons [facility] Order Entry Technician's Choice Jan 15, 2022 10:08 PM Consult Order [facility] CARE-PALLIATIVE CARE Cons Order Entry Technician's Choice Lab Results: +/- 30 days [...] Reference Range Comment Dec 15, 2021 [place] P4 GLU,BUN,CREAT,LYTES,CA Speci men Type: PLASMA 06:43 [facility] Comment: Tests performed on VivoText (405) SN:[id number] Ordering Provid er: ISATU TODD Report Released Date/Time: Dec 11, 2021 07:42 AM Reporting Lab: [facility] [address] [facility] [address] Performing Lab: [facility] [address] [facility] [address] UREA NITROGEN 9 7-25 SODIUM 137 135-145 [...] Lab: [facility] [address] [facility] [address] Performing Lab: [facility] [address] [facility] [address] WBC 5.7 4.5-11.0 RBC 4.22 L 4.23-5.66 [...] NRBC 0.00 0-0 Dec 14, 2021 [facility] CYTOGENETIC Specimen Type: ESOPHAGUS 02:59 PM VAOC FISH([facility]) Comment: ~For T est: CYTOGENETIC FISH([facility]) ~FISH HER 2 NUE, FFPE See full report in [employer] Image display viewer/tab#LAB-Reference Ordering Provid er: NIURKA MILLER Report Released Date/Time: Dec 21, 2021 12:11 PM Reporting Lab: [facility] [address] [facility] [address] Performing Lab: [facility] CYTOGENETIC FISH([facility]) comment Dec 14, 2021 [facility] P4 GLU,BUN,CREAT,LYTES,CA Speci men Type: PLASMA 06:27 AM [facility] Comment: Tests performed on VivoText (405) SN:[id number] Ordering Provid er: ISATU TODD Report Released Date/Time: Dec 11, 2021 07:42 AM Reporting Lab: [facility] [address] [facility] [address] Performing Lab: [facility] [address] [facility] [address] UREA NITROGEN 10 7-25 SODIUM 137 135-145 POTASSIUM 4.0 3.5-5.0 CHLORIDE 104 100-110 CARBON DIOXIDE 25 20-30 ANION GAP 8 4-16 GLUCOSE 99 65-100 CREATININE 0.67 0.5-1.5 CALCIUM 8.2 L 8.5-10.5 eGFR(CKD-EPI 2020) >90.0 >60 Dec 14, 2021 06:27 AM [facility] CBC PROFILE Sp ecimen Type: BLOOD No comment enter ed. Ordering Provid er: ISATU TODD Report Released Date/Time: Dec 10, 2021 07:22 AM Reporting Lab: [facility] [address] [facility] [address] Performing Lab: [facility] [address] [facility] [address] WBC 6.0 4.5-11.0 RBC 4.29 4.23-5.66 HGB [...] NRBC 0.00 0-0 Dec 13, 2021 [facility] P4 GLU,BUN,CREAT,LYTES,CA Speci men Type: PLASMA 06:34 AM [facility] Comment: Tests performed on VivoText (405) SN:[id number] Ordering Provid er: ISATU TODD Report Released Date/Time: Dec 11, 2021 07:42 AM Reporting Lab: [facility] [address] [facility] [address] Performing Lab: [facility] [address] [facility] [address] UREA NITROGEN 12 7-25 SODIUM 136 135-145 POTASSIUM 3.9 3.5-5.0 CHLORIDE 105 100-110 CARBON DIOXIDE 24 20-30 ANION GAP 7 4-16 GLUCOSE 102 H 65-100 CREATININE 0.66 0.5-1.5 CALCIUM 8.3 L 8.5-10.5 eGFR(CKD-EPI 2020) >90.0 >60 Dec 13, 2021 06:34 AM [facility] CBC PROFILE Sp ecimen Type: BLOOD No comment enter ed. Ordering Provid er: ISATU TODD Report Released Date/Time: Dec 10, 2021 07:22 AM Reporting Lab: [facility] [address] [facility] [address] Performing Lab: [facility] [address] [facility] [address] WBC 5.6 4.5-11.0 RBC 4.28 4.23-5.66 HGB [...] ABSOLUTE NRBC 0.00 0-0 Dec 12, 2021 [facility] P4 GLU,BUN,CREAT,LYTES,CA Speci men Type: PLASMA 06:21 AM [facility] Comment: Tests performed on VivoText (405) SN:[id number] Ordering Provid er: ISATU TODD Report Released Date/Time: Dec 11, 2021 07:42 AM Reporting Lab: [facility] [address] [facility] [address] Performing Lab: [facility] [address] [facility] [address] UREA NITROGEN 11 7-25 SODIUM 139 135-145 POTASSIUM 4.1 3.5-5.0 CHLORIDE 107 100-110 CARBON DIOXIDE 24 20-30 ANION GAP 8 4-16 GLUCOSE 110 H 65-100 CREATININE 0.70 0.5-1.5 CALCIUM 8.3 L 8.5-10.5 eGFR(CKD-EPI 2020) >90.0 >60 Dec 12, 2021 06:21 AM [facility] CBC PROFILE Sp ecimen Type: BLOOD No comment enter ed. Ordering Provid er: ISATU TODD Report Released Date/Time: Dec 10, 2021 07:22 AM Reporting Lab: [facility] [address] [facility] [address] Performing Lab: [facility] [address] [facility] [address] WBC 5.5 4.5-11.0 RBC 4.37 4.23-5.66 HGB [...] 0.00 0-0 Dec 12, 2021 06:00 AM Ep[facility] PHOSPHORUS Sp ecimen Type: PLASMA Comment: Testin g Performed on VivoText (405) SN:[id number] Ordering Provid er: ISATU TODD Report Released Date/Time: Dec 12, 2021 08:24 AM Reporting Lab: [place] [facility] [address] [facility] [address] Performing Lab: [employer] [place] CueT [facility] [address] [facility] [address] PHOSPHORUS 3.1 2.5-5.0 Dec 12, 2021 06:00 AM EpunchitT HRBoss[facility] MAGNESIUM Sp ecimen Type: PLASMA Comment: Testin g Performed on VivoText (405) SN:[id number] Ordering Provid er: ISATU TODD Report Released Date/Time: Dec 12, 2021 08:24 AM Reporting Lab: [place] [facility] [address] [facility] [address] Performing Lab: [place] [facility] [address] [facility] [address] MAGNESIUM 1.8 1.6-2.6 Dec 11, 2021 06:15 AM EpunchitT [facility]oss[facility] ELECTROLYTES Sp ecimen Type: PLASMA Comment: Tests performed on VivoText (405) SN:[id number] Ordering Provid er: ISATU TODD Report Released Date/Time: Dec 10, 2021 07:22 AM Reporting Lab: [place] [facility] [address] [facility] [address] Performing Lab: [place] [facility] [address] [facility] [address] SODIUM 137 135-145 POTASSIUM 4.3 3.5-5.0 CHLORIDE 108 100-110 CARBON DIOXIDE 20 20-30 ANION GAP 9 4-16 Dec 11, 2021 06:15 AM [place] MagnetT [facility] CBC PROFILE Sp ecimen Type: BLOOD Comment: Result s checked Ordering Provid er: ISATU TODD Report Released Date/Time: Dec 10, 2021 07:22 AM Reporting Lab: [place] [facility] [address] [facility] [address] Performing Lab: [facility] [place] [facility]GAT [facility] [address] [facility] [address] WBC 5.8 4.5-11.0 RBC 4.37 4.23-5.66 HGB [...] 0.00 0-0 Dec 11, 2021 06:00 AM [facility] PHOSPHORUS Sp ecimen Type: PLASMA Comment: Tests performed on VivoText (528) SN:[id number] Results checked Ordering Provid er: ISATU TODD Report Released Date/Time: Dec 11, 2021 07:44 AM Reporting Lab: [facility] [place] [facility] [address] [facility] [address] Performing Lab: [place] OMEGAT [facility] [address] [facility] [address] PHOSPHORUS 3.0 2.5-5.0 Dec 10, 2021 08:05 AM [place] [facility] MAGNESIUM Sp ecimen Type: PLASMA Comment: [place] [id number] on Dec 10, 2021@08:31 Tests performed on VivoText (405) SN:[id number] Ordering Provid er: ISATU TODD Report Released Date/Time: Dec 10, 2021 07:22 AM Reporting Lab: [place] [facility] [address] [place] [facility] [place] [place] [address] Performing Lab: [place] [facility] [address] [place] [facility] [place] [address] MAGNESIUM 1.7 1.6-2.6 Dec 10, 2021 08:05 AM [place] [facility] PHOSPHORUS Sp ecimen Type: PLASMA Comment: [place] [id number] on Dec 10, 2021@08:31 Tests performed on VivoText (405) SN:[id number] Ordering Provid er: ISATU TODD Report Released Date/Time: Dec 10, 2021 07:22 AM Reporting Lab: [place] [facility] [address] [place] [facility] [place] [place] [address] Performing Lab: [place] [facility] [address] [place] [facility] [place] [address] PHOSPHORUS 1.8 L 2.5-5.0 Dec 10, 2021 08:05 AM [place] [facility] GLUCOSE Sp ecimen Type: PLASMA Comment: [place] [id number] on Dec 10, 2021@08:31 Tests performed on VivoText (405) SN:[id number] Ordering Provid er: ISATU TODD Report Released Date/Time: Dec 10, 2021 07:22 AM Reporting Lab: [place] [facility] [address] [place] [facility] [place] [address] Performing Lab: [place] [facility] [address] [place] [facility] [place] [place] [address] GLUCOSE 144 H 65-100 Dec 10, 2021 08:05 AM [place] UREA NITROGEN Specimen Type: PLASMA [facility] Comment: [place] [id number] on Dec 10, 2021@08:31 Tests performed on VivoText (405) SN:[id number] Ordering Provid er: ISATU TODD Report Released Date/Time: Dec 10, 2021 07:22 AM Reporting Lab: [place] [facility] [address] [facility] [address] Performing Lab: [place] [facility] [address] [facility] [address] UREA NITROGEN 8 7-25 Dec 10, 2021 08:05 AM [place] [facility] CALCIUM Sp ecimen Type: PLASMA Comment: [place] [id number] on Dec 10, 2021@08:31 Tests performed on VivoText (405) SN:[id number] Ordering Provid er: ISATU TODD Report Released Date/Time: Dec 10, 2021 07:22 AM Reporting Lab: [place] [facility] [address] [facility] [address] Performing Lab: [place] [facility] [address] [facility] [address] CALCIUM 8.3 L 8.5-10.5 Dec 10, 2021 08:05 AM [place] [facility] ELECTROLYTES Sp ecimen Type: PLASMA Comment: [place] [id number] on Dec 10, 2021@08:31 Tests performed on Pham Cassatt (405) SN:[id number] Ordering Provid er: ISATU TODD Report Released Date/Time: Dec 10, 2021 07:22 AM Reporting Lab: [place] [facility] [address] [facility] [address] Performing Lab: [place] [facility] [address] [facility] [address] SODIUM 139 135-145 POTASSIUM 3.7 3.5-5.0 CHLORIDE 107 100-110 CARBON DIOXIDE 24 20-30 ANION GAP 8 4-16 Dec 10, 2021 08:05 [place] CREATININE WITH eGFR Specime n Type: PLASMA AM [facility] PANEL Comment: [place] [id number] on Dec 10, 2021@08:31 Tests performed on VivoText (405) SN:[id number] Ordering Provid er: ISATU TODD Report Released Date/Time: Dec 10, 2021 07:22 AM Reporting Lab: [place] [facility] [address] [facility] [address] Performing Lab: [place] [facility] [address] [facility] [address] CREATININE 0.78 0.5-1.5 eGFR(CKD-EPI 2020) >90.0 >60 Dec 10, 2021 08:05 AM [facility] CBC PROFILE Sp ecimen Type: BLOOD No comment enter ed. Ordering Provid er: ISATU TODD Report Released Date/Time: Dec 10, 2021 07:22 AM Reporting Lab: [place] O[facility]GAT [facility] [address] [facility] [address] Performing Lab: [place] [facility]ME[facility] [address] [facility] [address] WBC 7.0 4.5-11.0 RBC 4.54 4.23-5.66 HGB [...] 0.00 0-0 Dec 09, 2021 06:46 AM [facility] MAGNESIUM Sp ecimen Type: PLASMA Comment: Tests performed on VivoText (188) SN:[id number] Ordering Provid er: ISATU TODD Report Released Date/Time: Dec 08, 2021 10:23 AM Reporting Lab: [facility] [address] [facility] [address] Performing Lab: [facility] [address] [facility] [address] MAGNESIUM 1.6 1.6-2.6 Dec 09, 2021 [facility] P4 GLU,BUN,CREAT,LYTES,CA Speci men Type: PLASMA 06:46 AM [facility] Comment: Tests performed on VivoText (405) SN:[id number] Ordering Provid er: ISATU TODD Report Released Date/Time: Dec 08, 2021 05:00 PM Reporting Lab: [facility] [address] [facility] [address] Performing Lab: [facility] [address] [facility] [address] UREA NITROGEN 6 L 7-25 SODIUM 134 L 135-145 POTASSIUM 3.7 3.5-5.0 CHLORIDE 103 100-110 CARBON DIOXIDE 23 20-30 ANION GAP 8 4-16 GLUCOSE 112 H 65-100 CREATININE 0.70 0.5-1.5 CALCIUM 8.1 L 8.5-10.5 eGFR(CKD-EPI 2020) >90.0 >60 Dec 09, 2021 06:46 AM [facility] CBC PROFILE Sp ecimen Type: BLOOD No comment enter ed. Ordering Provid er: ISATU TODD Report Released Date/Time: Dec 08, 2021 05:00 PM Reporting Lab: [facility] [address] [facility] [address] Performing Lab: [facility] [address] [facility] [address] WBC 7.1 4.5-11.0 RBC 4.40 4.23-5.66 HGB [...] 0.00 0-0 Dec 08, 2021 06:39 AM [place] Medical Referral Source T [facility] MAGNESIUM Sp ecimen Type: PLASMA Comment: Testin g Performed on VivoText (405) SN:[id number] Ordering Provid er: ISATU TODD Report Released Date/Time: Dec 07, 2021 10:32 AM Reporting Lab: [facility] [address] [facility] [address] Performing Lab: [facility] [address] [facility] [address] MAGNESIUM 1.5 L 1.6-2.6 Dec 08, 2021 [facility] Medical Referral Source T P4 GLU,BUN,CREAT,LYTES,CA Speci men Type: PLASMA 06:39 AM [facility] Comment: Testin g Performed on VivoText (405) SN:[id number] Ordering Provid er: ISATU TODD Report Released Date/Time: Dec 07, 2021 10:32 AM Reporting Lab: [place] T [facility] [address] [facility] [address] Performing Lab: [facility] [address] [facility] [address] UREA NITROGEN 6 L 7-25 SODIUM 136 135-145 POTASSIUM 3.3 L 3.5-5.0 CHLORIDE 104 100-110 CARBON DIOXIDE 22 20-30 ANION GAP 10 4-16 GLUCOSE 133 H 65-100 CREATININE 0.76 0.5-1.5 CALCIUM 8.4 L 8.5-10.5 eGFR(CKD-EPI 2020) >90.0 >60 Dec 08, 2021 06:39 AM [place] Medical Referral Source T [facility] CBC PROFILE Sp ecimen Type: BLOOD No comment enter ed. Ordering Provid er: ISATU TODD Report Released Date/Time: Dec 07, 2021 10:32 AM Reporting Lab: [facility] [address] [facility] [address] Performing Lab: [facility] [address] [facility] WBC 8.4 4.5-11.0 RBC 4.75 [...] 0.00 0-0 Dec 07, 2021 06:42 [facility] LIVER PROFILE Specimen Typ e: PLASMA AM [facility] Comment: Tests performed on VivoText (405 SN:[id number] Ordering Provid er: PORFIRIO WALTERS Report Released Date/Time: Dec 06, 2021 06:57 PM Reporting Lab: [facility] [address] [facility] [address] Performing Lab: [facility] [address] [facility] [address] PROTEIN, TOTAL 5.7 L 6.0-8.5 ALBUMIN 2.4 L 3.2-5.0 BILIRUBIN, TOTAL 0.4 0.2-1.2 ALKALINE PHOSPHATASE 109 40-150 ALT(SGPT) 10 7-52 AST(SGOT) 15 5-34 FIB-4 SCORE 1.92 <2.67 Dec 07, 2021 06:42 AM [facility] Specimen Type: BLOOD [facility] No comment enter ed. Ordering Provid er: PORFIRIO WALTERS Report Released Date/Time: Dec 06, 2021 06:57 PM Reporting Lab: [facility] [address] [facility] [address] Performing Lab: [place] [facility] [address] [facility] [address] WBC 5.7 4.5-11.0 RBC 4.15 L 4.23-5.66 [...] ABSOLUTE NRBC 0.00 0-0 Dec 07, 2021 [place] P4 GLU,BUN,CREAT,LYTES,CA Speci men Type: PLASMA 06:42 AM [facility] Comment: Tests performed on VivoText (480) SN:[id number] Ordering Provid er: PORFIRIO WALTERS Report Released Date/Time: Dec 06, 2021 06:57 PM Reporting Lab: [facility] [address] [facility] [address] Performing Lab: [place] [facility] [address] [facility] [address] UREA NITROGEN 9 7-25 SODIUM 135 135-145 POTASSIUM 3.5 3.5-5.0 CHLORIDE 103 100-110 CARBON DIOXIDE 22 20-30 ANION GAP 10 4-16 GLUCOSE 92 65-100 CREATININE 0.73 0.5-1.5 CALCIUM 8.0 L 8.5-10.5 eGFR(CKD-EPI 2020) >90.0 >60 Dec 07, [address] [place] [address] (ABS & Specimen Type: BLOOD 06:00 AM [facility] %) AUTOMATED Comment: Tests performed on VivoText (405) SN:[id number] Ordering Provid er: ISATU TODD Report Released Date/Time: Dec 07, 2021 10:28 AM Reporting Lab: [place] [facility] [address] [facility] [address] Performing Lab: [place] [facility] [address] [facility] [address] RETICULOCYTES (%) AUTOMATED 1.23 0. 6-2.0 RETICULOCYTES (ABS) AUTOMATED 0.052 0.030-0.090 Dec 06, 2021 09:45 [place] MRSA SURVL NARES Specimen Ty pe: NARES PM [facility] DNA No comment enter ed. Ordering Provid er: ALVARO VARGHESE Report Released Date/Time: Dec 07, 2021 02:20 AM Reporting Lab: [place] [facility] [address] [facility] [address] Performing Lab: [place] [facility] [address] [facility] [address] MRSA SURVL NARES DNA NEGATIVE NEGATIVE Dec 06, 2021 06:00 [place] URINALYSIS W/REFLEX TO Speci men Type: URINE PM [facility] CULTURE No comment enter ed. Ordering Provid er: JELANI SÁNCHEZ Report Released Date/Time: Dec 06, 2021 11:57 AM Reporting Lab: [place] [facility] [address] [facility] [address] Performing Lab: [place] [facility] [address] [facility] [address] URINE COLOR Arlin YELLOW SPECIFIC GRAVITY 1.029 [...] 21, RIVER VARIANT Comment: https://www.cdc.gov/coronavirus/2019-ncov/cases-updates/variant- surveillance/variant-info.html The [employer] SARS CoV 2 [employer] Assay-GX is a next-generation sequencing (NGS) assa 2021 [facility] SEQUENCING y that determine s the complete genome sequence of the SARS-CoV-2 virus. The assay contains variant-tolerant primers to broaden and improve the coverage for variant detection and increase the sensitivity 12:00 [facility] PNL(WH) of the panel to enable detection from lower viral titer samples. The assay is run on the [employer] Sequencer, which performs automated library preparation, sequencing, analysis, and reporting. PM The sequence an alysis includes determination of viral phylogenetic lineage by comparison to the reference strain Wuhan-Hu-1, GenBank: [id number]. Sequence determination may not be possible owing [...] and its performance characteristics determined by the [facility] Molecular Diagnostics Laboratory, which is certified under the Clinical Laboratory Improveme nt Amendments (C MARCO) as qualified to perform high complexity clinical laboratory testing. This test is validated for clinical use at [facility] and should not be regarded as [...] 01:13 PM Reporting Lab: [facility] [address] [facility] [address] Performing Lab: [facility] [address] [facility] [address] SARS-CoV-2 CLADE() 22C (OMICRON) SARS-CoV-2 LINEAGE() BA.2.12.1 Dec 06, 2021 12:00 [facility] COVID-19 AG SCREEN Specimen Type: NASAL CAVITY PM [facility] PANEL BINAX(405) Comment: Testi ng Performed By: Mike Briscoe Ordering Provid er: JELANI SÁNCHEZ Report Released Date/Time: Dec 08, 2021 08:23 AM Reporting Lab: [facility] [address] [facility] [address] Performing Lab: [facility] [address] [facility] [address] COVID-19 AG SCRN(wrj BINAX) POSITIVE HH NE G Dec 06, 2021 [facility] P4 GLU,BUN,CREAT,LYTES,CA Speci men Type: PLASMA 12:00 PM [facility] Comment: Testin g Performed on Pham [employer] Assistant (405) SN:[id number] Ordering Provid er: JELANI SÁNCHEZ Report Released Date/Time: Dec 06, 2021 11:57 AM Reporting Lab: [facility] [address] [facility] [address] Performing Lab: [facility] [address] [facility] [address] UREA NITROGEN 13 7-25 SODIUM 138 135-145 POTASSIUM 3.8 3.5-5.0 CHLORIDE 103 100-110 CARBON DIOXIDE 23 20-30 ANION GAP 12 4-16 GLUCOSE 105 H 65-100 CREATININE 0.90 0.5-1.5 CALCIUM 8.7 8.5-10.5 eGFR(CKD-EPI 2020) >90.0 >60 Dec 06, 2021 12:00 PM [facility] TROPONIN II Sp ecimen Type: PLASMA Comment: Tests performed on [employer] Assistant (405) SN:[id number] Ordering Provid er: JELANI SÁNCHEZ Report Released Date/Time: Dec 06, 2021 11:57 AM Reporting Lab: [place] [facility] [address] [facility] [address] Performing Lab: [facility] [address] [facility] [address] TROPONIN II 0.03 0.00-0.29 Dec 06, 2021 12:00 PM [place] [facility] LIVER PROFILE Sp ecimen Type: PLASMA Comment: Testin g Performed on Pham [employer] Assistant (405) SN:[id number] Ordering Provid er: JELANI SÁNCHEZ Report Released Date/Time: Dec 06, 2021 11:57 AM Reporting Lab: [facility] [address] [facility] [address] Performing Lab: [facility] [address] [facility] [address] PROTEIN, TOTAL 6.6 6.0-8.5 ALBUMIN 2.8 L 3.2-5.0 BILIRUBIN, TOTAL 0.6 0.2-1.2 ALKALINE PHOSPHATASE 134 40-150 ALT(SGPT) 13 7-52 AST(SGOT) 18 5-34 FIB-4 SCORE 1.94 <2.67 Dec 06, 2021 12:00 PM [facility] Sp ecimen Type: PLASMA Comment: Tests performed on [employer] Gift [employer] Assistant (405) [id number] Ordering Provid er: JELANI SÁNCHEZ Report Released Date/Time: Dec 06, 2021 11:57 AM Reporting Lab: [facility] [address] [facility] [address] Performing Lab: [facility] [address] [facility] [address] BNP(P) 224.8 H 10-100 Dec 06, 2021 [facility] COVID-19+FLU/RSV DIAGNOSTIC Spe cimen Type: NASOPHARYNX 12:00 PM [facility] PANEL(405) Comment: Tests performed on [employer] Smart Genexpert (405) Critical results called to and read back by: ALESHIA WILKINSON RN 12/06/21 @ 1312 Ordering Provid er: JELANI SÁNCHEZ Report Released Date/Time: Dec 06, 2021 11:57 AM Reporting Lab: [facility] [address] [facility] [address] Performing Lab: [facility] [address] [facility] [address] FLU A(PCR) NEGATIVE NEGATIVE FLU B(PCR) NEGATIVE NEGATIVE RSV(PCR) NEGATIVE NEGATIVE COVID-19([id number]) DETECTED HH NO T DETECTED Dec 06, 2021 12:00 PM [facility] Sp ecimen Type: BLOOD No comment enter ed. Ordering Provid er: JELANI SÁNCHEZ Report Released Date/Time: Dec 06, 2021 11:57 AM Reporting Lab: [facility] [address] [facility] [address] Performing Lab: [facility] [facility] [address] [facility] [id number] WBC 7.2 4.5-11.0 RBC 4.86 4.23-5.66 HGB [...] Dec 09, 0 2021 10:43 [facility] Dec 09, 98.2 F 82 111/58 18 /min 97 % 2021 08:31 /min mm[Hg] [facility] Dec 09, 98.3 F 106 113/69 18 /min 97 % WHITE 2021 02:37 /min mm[Hg] [facility] Dec 09, 0 2021 11:42 [facility] Dec 09, 97.1 F 94 120/73 16 /min 98 % 0 WHITE 2021 07:40 /min mm[Hg] [facility] Social History: Smoking Status (Most current) [...] QUIT TOBACCO USE > 7 YEARS AGO [facility] Tobacco Use History This section includes a history of the smoking, or tobacco- related health factors, that were collected on or before the date of the Encounter. The data comes from the [place] facility where the Encounter took place. Date/Time Smoking Status/Tobacco Use Comment [facility] Apr 01, 2020 01:16 PM QUIT TOBACCO USE 1-7 YEARS AGO [facility] Mar 24, 2020 03:00 PM QUIT TOBACCO USE 1-7 YEARS AGO [facility] Feb 21, 2019 04:11 PM QUIT TOBACCO USE 1-7 YEARS AGO [facility] Feb 20, 2019 03:38 PM QUIT TOBACCO USE 1-7 YEARS AGO [facility] Feb 03, 2019 09:50 AM QUIT TOBACCO USE 1-7 YEARS AGO [facility] May 25, 2016 11:53 PM QUIT TOBACCO USE IN PAST YEAR [facility] May 23, 2016 06:57 PM QUIT TOBACCO USE > 7 YEARS AGO [facility] May 19, 2016 03:55 PM QUIT TOBACCO USE IN PAST YEAR [facility] May 19, 2016 10:29 AM QUIT TOBACCO USE 1-7 YEARS AGO [facility] May 01, 2016 07:26 PM QUIT TOBACCO USE IN PAST YEAR [facility] May 01, 2016 03:11 PM QUIT TOBACCO USE IN PAST YEAR [facility] May 01, 2016 11:19 AM QUIT TOBACCO USE IN PAST YEAR [facility] [place] [facility] Mar 16, 2016 12:50 PM V1-PT DECLINES REF TO TOBACCO [facility] [place] [facility] CESS [facility] Mar 16, 2016 12:50 PM V1-PT THINKING ABOUT QUIT [facility] TOBACCO USE Aug 12, 2015 08:48 AM CURRENT SMOKER [facility] Radiology Reports: +/- 30 days of [...] W/WO CONTRAST: MARYELLEN LONG LUCAS LARES N [id number] -1950 [facility] Exm Date: DEC 13, 2021@12:57 Req Phys: ISATU TODD Loc: OP Unknown/0 12-15-2021@13:20 Img Loc: MRI IMAGING (OOS) Service: [facility] MEDICINE (Case [id number] COMPLETE) MRI ABDOMEN W/WO CONTRAST (M RI Detailed) CPT:21952 Reason for Study: further characterization of a [...] new lyphadenopathy REQUESTING MD: Isatu Todd PAGER: [phone] PHONE: [phone] Weight: 232.2 lb [105.32 kg] (12/12/2021 05:00) [...] patient will need to arrange for a set key driver to take him/her home after the [...] 15, 2021 Date Verified: DEC 15, 2021 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 E-Sig:/ES/MARYELLEN LONG Report: MRI ABDOMEN W/WO CONTRAST [...] MALIGNANCY Primary Interpreting Staff: Staff AMELIA THOMAS (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) / Dec 10, 2021 09:[address] ABDOMEN & PELVIS: RAD[facility]OU[facility]IDE [facility] LUCAS MEEK N [id number] -1950 M SERVICE [facility] Exm Date: DEC 10, 2021@09:30 Req Phys: ISATU TODD Loc: 1S MED/12-10@10:57 Img Loc: CT SCAN (OOS) Service: [facility] (Case [id number] COMPLETE) CT ABD & PELVIS WITHOUT CONT RAST (CT Detailed) CPT:55165 Reason for Study: 71 yo male with [...] INDEX - NO HEIGHTS FOUND Pager number: [phone] STAT orders MUST be call ed to RADIOLOGY [phone] to speak to the appropriate refractory technician. Report Status: Verified Date Reported: DEC 10, 2021 Date Verified: DEC 10, 2021 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 E-Sig: Report: EXAM: CT abdomen and pelvis [...] ph nodes. READING PHYSICIAN: Ramone Munoz D.O. [phone] 12/10/2021 10:55 EDT [facility] National Teleradiology Program [phone] (For Medical Practitioner Use Only ) [address] [facility], [facility] [address] [place] [address] Attention Patients / Veterans: If you have ques tions or concerns about these test results, please contact your o rdering provider or primary care team. Primary Diagnostic Code: SIGNIFICANT ABNORMALIT Y, ATTN NEEDED Primary Interpreting Staff: RADIOLOGY,OUTSIDE SERVICE, Staff Physician / Dec 09, 2021 07:34 AM BASW (MODIFIED): JESSIE CHENEY [facility] LUCAS MEEK N [id number] -1950 M [facility] Exm Date: DEC 09, 2021@07:34 Req Phys: ISATU TODD Loc: 1S MED/12-09@11:26 Img Loc: XRAY (OOS) Service: [facility] MEDICINE (Case [id number] COMPLETE) BASW (MODIFIED) (RAD Detaile d) CPT:66173 Contrast Media : Barium Reason for Study: dysphagia ?esophageal spasm Clinical History: Report Status: Verified Date Reported: DEC 09, 2021 Date Verified: DEC 09, 2021 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 E-Sig:/ES/JESSIE CHENEY Report: DELISA (MODIFIED) , 12/09/2021 [...] REQUIRED Primary Interpreting Staff: JESSIE CHENEY, RADIOLOGIST (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) /TLC Dec 06, 2021 12:[address] CHEST (INCLUDES ADRENALS): EJSSIE CHENEY [facility] LUCAS MEEK N [id number] -1950 M [facility] Exm Date: DEC 06, 2021@12:59 Req Phys: JELANI SÁNCHEZ Pat Loc: [facility] ED DAYS M 1RD (Req'g Loc) Img Loc: CT SCAN (OOS) Service: Unknown (Case [id number] COMPLETE) CT THORAX W/O CONT (CT Detai led) CPT:03693 Reason for Study: Opacification right chest Clinical History: No contrast allergy BUN: 13 (12/06/21 12:00) CREATI: 0.90 (12/06/21 12:00) eGFR 05/16/21 09:43 52 L Weight: 232.6 lb [105.51 kg] (12/06/2021 11:40) BODY MASS INDEX - NO HEIGHTS FOUND Pager number: [phone] STAT orders MUST be called t o RADIOLOGY [phone] to speak to the appropriate refractory technician. Indications - Other: Opacification right chest, covid positive, lung cancer histo Report Status: Verified Date Reported: DEC 06, 2021 Date Verified: DEC 06, 2021 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 E-Sig:/ES/JESSIE CHENEY Report: CT THORAX W/O CONT [...] REQUIRED Primary Interpreting Staff: JESSIE CHENEY, RADIOLOGIST (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) Primary Interpreting Resident: PRINCE CHAMPION, Resident /ABBI Dec 06, 2021 11:58 AM CHEST SINGLE VIEW: JESSIE CHENEYT LUCAS MEEK N [id number] -1950 M [facility] Exm Date: DEC 06, 2021@11:58 Req Phys: JELANI SÁNCHEZ Pat Loc: [facility] ED DAYS M 1RD (Req'g Loc) Img Loc: XRAY (OOS) Service: Unknown (Case [id number] COMPLETE) CHEST SINGLE VIEW (RAD Detai led) CPT:50307 Proc Modifiers : PORTABLE EXAM Reason for Study: SOB, home covid test positive Clinical History: Report Status: Verified Date Reported: DEC 06, 2021 Date Verified: DEC 06, 2021 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 E-Sig:/ES/JESSIE CHENEY Report: Exam type: Chest x-ray [...] REQUIRED Primary Interpreting Staff: JESSIE CHENEY, RADIOLOGIST (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) /TLC Pathology Reports: +/- 30 days of [...] AM LR SURGICAL PATHOLOGY REPORT: STEFANY MILLER [facility] LOCAL TITLE: LR SURGICAL PATHOLOGY REPORT [facility] STANDARD TITLE: PATHOLOGY REPORT DATE OF NOTE: JAN 03, 2022@10:28:01 ENTRY DATE: JAN 03, 2022@10:28:01 AUTHOR: NIURKA MILLER EXP COSIGNER: URGENCY: STATUS: COMPLETED $APHDR Reporting Lab: [facility] [CLIA# [id number]] [address] [place] [address] - - - - - - [...] automatically d ocumented from SURGERY package case #[id number] Field (#32) PRINCIPAL PRE-OP DIAGNOSIS, (#.72) OTHER [...] automatically d ocumented from SURGERY package case #[id number] Field (#34) PRINCIPAL POST-OP DIAG, (#.74) OTHER [...] Label: Lucas Meek Paperwork: Lucas Meek Cassette: [id number];..;KALYANI;.;405;[id number] Specimen is labeled: ES bx Received in formalin are several pieces of pale boyd and brown tissue, 1.2 x 0.7 cm in aggregate. Submitted entirely in 1 cassette [id number];..;KALYANI;.;405;[id number] SAW 12/15/2021 Microscopic exam: *+* MODIFIED REPORT [...] report in rendering the final pathologic diagnosis. [address] [address] CPT: 16340 /emely/ NIURKA Yeung MD Signed Jan 03, 2022@10:28 Performing Laboratory: Surgical Pathology Report Performed By: [facility] MONTO[facility] [CLIA# [id number]] [address] [place] [address] $FTR - - - - - [...] - - LUCAS MEEK STANDARD FORM 515 ID:[id number] SEX:M :1950 AGE: 71 LOC: SDM END PCP: Isatu Todd /emely/ NIURKA MILLER Staff Signed: 01/03/2022 10:28 Dec 21, 2021 11:46 AM LR SURGICAL PATHOLOGY REPORT: STEFANY MILLER [facility] LOCAL TITLE: LR SURGICAL PATHOLOGY REPORT [facility] STANDARD TITLE: PATHOLOGY REPORT DATE OF NOTE: DEC 21, 2021@11:46:59 ENTRY DATE: DEC 21, 2021@11:46:59 AUTHOR: NIURKA MILLER EXP COSIGNER: URGENCY: STATUS: COMPLETED $APHDR Reporting Lab: [facility] [CLIA# [id number]] [address] [place] [address] - - - - - - [...] automatically d ocumented from SURGERY package case #[id number] Field (#32) PRINCIPAL PRE-OP DIAGNOSIS, (#.72) OTHER [...] automatically d ocumented from SURGERY package case #[id number] Field (#34) PRINCIPAL POST-OP DIAG, (#.74) OTHER [...] Label: Lucas Meek Paperwork: Lucas Meek Cassette: [id number];..;KALYANI;.;405;[phone] Specimen is labeled: ES bx Received in formalin are several pieces of pale boyd and brown tissue, 1.2 x 0.7 cm in aggregate. Submitted entirely in 1 cassette [id number];..;KALYANI;.;405;[id number] SAW 12/15/2021 Microscopic exam: DIAGNOSIS: A. 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 Kendell long. TIARA Coombs was notified on 12/21/21. The attending pathologist who signature mansoor ears on this report has reviewed all diagnostic slides and has edited t he gross and/or microscopic portion of this report in rendering the final pathologic diagnosis. [address] [address] CPT: 87665 /emely/ NIURKA Yeung MD Signed Dec 21, 2021@11:46 Performing Laboratory: Surgical Pathology Report Performed By: [facility] [CLIA# [id number]] [address] [place] [address] $FTR - - - - - [...] - - LUCAS MEEK STANDARD FORM 515 ID:[id number] SEX:M :1950 AGE: 71 LOC: [facility] END PCP: Isatu Todd /emely/ NIURKA Yeung MD Signed: 12/21/2021 11:46 Dec 06, 2021 03:30 PM LR MI[facility]OLOGY [facility] Reporting Lab: [facility] [CLIA# [id number]] [address] [place] [address] Accession [UID]: [id number] [[id number]] Receiv ed: Dec 06, 2021@16:14 Collection sample: BLOOD CUL T BOTTLE(NIRMAL/AERO)Collection date: Dec 06, 2021 15:30 Site/Specimen: BLOOD Provider: JELANI SÁNCHEZ Comment on specimen: LAC Test(s) ordered: BLOOD CULTURE ANAEROBI C....... completed: Dec 12, 2021 06:18 * BACTERIOLOGY FINAL REPORT => Dec 12, 2021 06:1 8 TECH CODE: 10055 Bacteriology Remark(s): NO GROWTH IN 5 DAYS =--=--=--=--=--=--=--=--=--=--=--=--=--= --=--=--=--=--=--=--=--=--=--=--=--=-- Performing Laboratory: Bacteriology Report Performed By: [facility] [CLIA# [id number]] [address] [place] [address] Dec 06, 2021 03:30 PM LR MICROBIOLOGY REPORT: [facility] Reporting Lab: [facility] [CLIA# [id number]] [address] [place] [address] Accession [UID]: [id number] [[id number]] Receiv ed: Dec 06, 2021@16:14 Collection sample: BLOOD CUL T BOTTLE(NIRMAL/AERO)Collection date: Dec 06, 2021 15:30 Site/Specimen: BLOOD Provider: JELANI SÁNCHEZ Comment on specimen: LAC Test(s) ordered: BLOOD CULTURE AEROBIC. ........ completed: Dec 12, 2021 06:17 * BACTERIOLOGY FINAL REPORT => Dec 12, 2021 06:1 7 TECH CODE: 00223 Bacteriology Remark(s): NO GROWTH IN 5 DAYS =--=--=--=--=--=--=--=--=--=--=--=--=--= --=--=--=--=--=--=--=--=--=--=--=--=-- Performing Laboratory: Bacteriology Report Performed By: [facility] [CLIA# [id number]] [address] [place] [address]
--- OUTSIDE RECORDS SUMMARY | 2022-01-19 08:29 | XMS_ITS ---
DAILY HOSPITALIZATION DATA [facility] Encounter Summary Created on:December 09, 2021 Patient:LUCAS MEEK Sex:Male :1950 Author Organization [facility] Address [address] [place] [id number] Support Name Relationship Address Phone YUSRA MEEK Unavailable [address] [place] [address] YUSRA MEEK Unavailable [address] [place] [facility] [place] [address] CLAY MOSLEY Unavailable Unavailable SJ SANTACRUZ Unavailable [...] MEDICARE MEDICARE PART Jun 18, PART A [id number] DO KALYANI PATIENT (WNR) (M) A 2016 13A 1 [place]AS MEDICARE MEDICARE PART Jun 18, PART B [id number] DO KALYANI PATIENT (WNR) (M) B 2016 13A 1 [place] MEDICARE MEDICARE PART Jun 18, PART A [id number] KALYANIDO PATIENT (WNR) (M) A 2017 VH81 2 [place] MEDICARE MEDICARE PART Jun 18, PART B [id number] DO KALYANI PATIENT (WNR) (M) B 2017 VH81 2 [place] UNITED MEDICARE MCR(Jun 18 [id number] Luz MEEK PATIENT HEALTHCARE ADVANTAGE NR) [address] [facility] (WNR) Selected Encounter This section includes the information on record at PA for the Encounter. Date/Time Encounter Type Encounter Description Reason Provider Source Dec 09, 2021 01:50 Inpatient Visit DAILY HOSPITALIZATION DATA PM IHE Encounter Template Text not used by PA Plan of Treatment: Future Appointments (+ 6 months) and Future Tests (+/- 45 days) The Plan of Treatment section includes future care activities for the patient from all PA treatmentfacilities. This section includes future appointments and future orders which are active, pending orscheduled.Future Appointments This section includes appointments that were scheduled to occur 6 months from the date of the Encounter, up to a maximum of 20 appointments. The data comes from all PA treatment facilities. Appointment Date/Time Appointment Type Appointment Facili ty Name Dec 21, 2021 08:00 AM AM[place] [facility] Jan 06, 2022 02:00 PM [place] [facility] Jan 10, 2022 11:30 AM AMBULATORY - MEDICINE [facility] Jan 24, 2022 08:00 AM [place] [facility] Feb 21, 2022 10:00 AM AMBUL[place] [facility] Mar 21, 2022 10:30 [...] the Encounter. The data comes from all PA treatment [facility]. Test Date/Time Test Type Test Details Facility Name October 31, 2021 07:37 AM Consult Order [facility] Cons Home Health Lpn's Choice November 15, 2021 10:37 AM Consult Order [facility] CARE-PODIATRY Cons Home Health Lpn's Choice Dec 06, 2021 12:52 PM [place]acy [place] Infusion Order [facility] Dec 06, 2021 03:24 PM Pharmacy - [place] [facility] Dec 06, 2021 03:40 PM [place]acy - [place] [facility] Dec 15, 2021 08:41 AM Consult Order SPEECH PATHOLOGY [place] OUTPATIENT Cons [facility] Home Health Lpn's Choice Jan 15, 2022 10:08 PM Consult Order [facility] CARE-PALLIATIVE CARE Cons Home Health Lpn's Choice Lab Results: +/- 30 days of [...] Reference Range Comment Dec 15, 2021 [place] P4 GLU,BUN,CREAT,LYTES,CA Speci men Type: PLASMA 06:43 AM [facility] Comment: Tests performed on Gonway (405) SN:[id number] Ordering Provid er: ISATU TODD Report Released Date/Time: Dec 11, 2021 07:42 AM Reporting Lab: [facility] T [facility] [address] [facility] [address] Performing Lab: [facility] [address] [facility] [address] UREA NITROGEN 9 7-25 SODIUM 137 135-145 POTASSIUM 3.8 3.5-5.0 CHLORIDE 105 100-110 CARBON DIOXIDE 26 20-30 ANION GAP 6 4-16 GLUCOSE 102 H 65-100 CREATININE 0.64 0.5-1.5 CALCIUM 8.1 L 8.5-10.5 eGFR(CKD-EPI 2020) >90.0 >60 Dec 15, 2021 06:43 AM [facility] CBC PROFILE Sp ecimen Type: BLOOD No comment enter ed. Ordering Provid er: ISATU TODD Report Released Date/Time: Dec 10, 2021 07:22 AM Reporting Lab: [facility] [address] [facility] [address] Performing Lab: [facility] [address] [facility] [address] WBC 5.7 4.5-11.0 RBC 4.22 L 4.23-5.66 [...] ABSOLUTE NRBC 0.00 0-0 Dec 14, 2021 [facility] CYTOGENETIC Specimen Type: ESOPHAGUS 02:59 PM [facility] Comment: ~For T est: CYTOGENETIC FISH([facility]) ~FISH HER 2 NUE, FFPE See full report in modulR Image display viewer/tab#LAB-Reference Ordering Provid er: NIURKA MILLER Report Released Date/Time: Dec 21, 2021 12:11 PM Reporting Lab: [facility] [address] [facility] [address] Performing Lab: [facility] CYTOGENETIC FISH([facility]) comment Dec 14, 2021 [facility] P4 GLU,BUN,CREAT,LYTES,CA Speci men Type: PLASMA 06:27 AM [facility] Comment: Tests performed on Gonway (405) SN:[id number] Ordering Provid er: ISATU TODD Report Released Date/Time: Dec 11, 2021 07:42 AM Reporting Lab: [facility] [address] [facility] [address] Performing Lab: [facility] [address] [facility] [address] UREA NITROGEN 10 7-25 SODIUM 137 135-145 [...] Reporting Lab: [facility] [address] [facility] [address] Performing Lab: [facility] [address] [facility] [address] WBC 6.0 4.5-11.0 RBC 4.29 4.23-5.66 HGB [...] ABSOLUTE NRBC 0.00 0-0 Dec 13, 2021 [facility] P4 GLU,BUN,CREAT,LYTES,CA Speci men Type: PLASMA 06:34 AM [facility] Comment: Tests performed on Gonway (405) SN:[id number] Ordering Provid er: ISATU TODD Report Released Date/Time: Dec 11, 2021 07:42 AM Reporting Lab: [facility] [address] [facility] [address] Performing Lab: [facility] [address] [facility] [address] UREA NITROGEN 12 7-25 SODIUM 136 135-145 [...] Reporting Lab: [facility] [address] [facility] [address] Performing Lab: [facility] [address] [facility] [address] WBC 5.6 4.5-11.0 RBC 4.28 4.23-5.66 HGB [...] ABSOLUTE NRBC 0.00 0-0 Dec 12, 2021 [facility] P4 GLU,BUN,CREAT,LYTES,CA Speci men Type: PLASMA 06:21 AM [facility] Comment: Tests performed on Gonway (405) SN:[id number] Ordering Provid er: ISATU TODD Report Released Date/Time: Dec 11, 2021 07:42 AM Reporting Lab: [facility] [address] [facility] [address] Performing Lab: [facility] [address] [facility] [address] UREA NITROGEN 11 7-25 SODIUM 139 135-145 [...] 07:22 AM Reporting Lab: [facility] [address] [facility] [address] Performing Lab: [facility] [address] [facility] [address] WBC 5.5 4.5-11.0 RBC 4.37 4.23-5.66 HGB [...] 0.00 0-0 Dec 12, 2021 06:00 AM [facility] MAGNESIUM Sp ecimen Type: PLASMA Comment: Testin g Performed on Gonway (405) SN:[id number] Ordering Provid er: ISATU TODD Report Released Date/Time: Dec 12, 2021 08:24 AM Reporting Lab: [place] [facility] [address] [facility] [address] Performing Lab: [place] [facility] [address] [facility] [address] MAGNESIUM 1.8 1.6-2.6 Dec 12, 2021 06:00 AM [facility] PHOSPHORUS Sp ecimen Type: PLASMA Comment: Testin g Performed on Gonway (405) SN:[id number] Ordering Provid er: ISATU TODD Report Released Date/Time: Dec 12, 2021 08:24 AM Reporting Lab: [place] [facility] [address] [facility] [address] Performing Lab: [place] [employer] [address] [facility] [address] PHOSPHORUS 3.1 2.5-5.0 Dec 11, 2021 06:15 AM [place] [employer] [facility] ELECTROLYTES Sp ecimen Type: PLASMA Comment: Tests performed on Gonway (405) SN:[id number] Ordering Provid er: ISATU TODD Report Released Date/Time: Dec 10, 2021 07:22 AM Reporting Lab: [place] [facility] [address] [facility] [address] Performing Lab: [place] [facility] [address] [facility] [address] SODIUM 137 135-145 POTASSIUM 4.3 3.5-5.0 CHLORIDE 108 100-110 CARBON DIOXIDE 20 20-30 ANION GAP 9 4-16 Dec 11, 2021 06:15 AM [place] [facility] CBC PROFILE Sp ecimen Type: BLOOD Comment: Result s checked Ordering Provid er: ISATU TODD Report Released Date/Time: Dec 10, 2021 07:22 AM Reporting Lab: [place] [facility] [address] [facility] [address] Performing Lab: [place] [facility] [address] [facility] [address] WBC 5.8 4.5-11.0 RBC 4.37 4.23-5.66 HGB [...] ecimen Type: PLASMA Comment: Tests performed on Gonway (412) SN:[id number] Results checked Ordering Provid er: ISATU TODD Report Released Date/Time: Dec 11, 2021 07:44 AM Reporting Lab: [place] [facility] [address] [facility] [address] Performing Lab: [place] [facility] [address] [facility] [address] PHOSPHORUS 3.0 2.5-5.0 Dec 10, 2021 08:05 AM [place] [facility] MAGNESIUM Sp ecimen Type: PLASMA Comment: [place] [id number] on Dec 10, 2021@08:31 Tests performed on Gonway (405) SN:[id number] Ordering Provid er: ISATU TODD Report Released Date/Time: Dec 10, 2021 07:22 AM Reporting Lab: [place] [facility] [address] [facility] [place] [address] Performing Lab: [place] [facility] [address] [facility] [place] [address] MAGNESIUM 1.7 1.6-2.6 Dec 10, 2021 08:05 AM [place] [facility] PHOSPHORUS Sp ecimen Type: PLASMA Comment: [place] [id number] on Dec 10, 2021@08:31 Tests performed on Gonway (405) SN:[id number] Ordering Provid er: ISATU TODD Report Released Date/Time: Dec 10, 2021 07:22 AM Reporting Lab: [place] [facility] [address] [facility] [place] [address] Performing Lab: [place] [facility] [address] [facility] [place] [address] PHOSPHORUS 1.8 L 2.5-5.0 Dec 10, 2021 08:05 AM [place] UREA NITROGEN Specimen Type: PLASMA [facility] Comment: [place] [id number] on Dec 10, 2021@08:31 Tests performed on Gonway (405) SN:[id number] Ordering Provid er: ISATU TODD Report Released Date/Time: Dec 10, 2021 07:22 AM Reporting Lab: [place] [facility] [address] [facility] [place] [address] Performing Lab: [place] [facility] [address] [facility] [place] [address] UREA NITROGEN 8 7-25 Dec 10, 2021 08:05 AM [place] [facility] GLUCOSE Sp ecimen Type: PLASMA Comment: [place] [id number] on Dec 10, 2021@08:31 Tests performed on Gonway (405) SN:[id number] Ordering Provid er: ISATU TODD Report Released Date/Time: Dec 10, 2021 07:22 AM Reporting Lab: [place] [facility] [address] [facility] [address] Performing Lab: [place] [facility] [address] [facility] [address] GLUCOSE 144 H 65-100 Dec 10, 2021 08:05 [place] CREATININE WITH eGFR Specime n Type: PLASMA AM [facility] PANEL Comment: [place] [id number] on Dec 10, 2021@08:31 Tests performed on Gonway (405) SN:[id number] Ordering Provid er: ISATU TODD Report Released Date/Time: Dec 10, 2021 07:22 AM Reporting Lab: [place] [facility] [address] [facility] [address] Performing Lab: [place] [facility] [address] [facility] [address] CREATININE 0.78 0.5-1.5 eGFR(CKD-EPI 2020) >90.0 >60 Dec 10, 2021 08:05 AM [place] [facility] CBC PROFILE Sp ecimen Type: BLOOD No comment enter ed. Ordering Provid er: ISATU TODD Report Released Date/Time: Dec 10, 2021 07:22 AM Reporting Lab: [place] [facility] [address] [facility] [address] Performing Lab: [place] [facility] [address] [facility] [address] WBC 7.0 4.5-11.0 RBC 4.54 4.23-5.66 HGB [...] Sp ecimen Type: PLASMA Comment: [place] [id number] on Dec 10, 2021@08:31 Tests performed on Gonway (405) SN:[id number] Ordering Provid er: ISATU TODD Report Released Date/Time: Dec 10, 2021 07:22 AM Reporting Lab: [place] [facility] [address] [facility] [address] Performing Lab: [place] [facility] [address] [facility] [address] SODIUM 139 135-145 POTASSIUM 3.7 3.5-5.0 CHLORIDE 107 100-110 CARBON DIOXIDE 24 20-30 ANION GAP 8 4-16 Dec 10, 2021 08:05 AM [place] [facility] CALCIUM Sp ecimen Type: PLASMA Comment: [place] [id number] on Dec 10, 2021@08:31 Tests performed on Gonway (405) SN:[id number] Ordering Provid er: ISATU TODD Report Released Date/Time: Dec 10, 2021 07:22 AM Reporting Lab: [place] [facility] [address] [facility] [address] Performing Lab: [place] [facility] [address] [facility] [address] CALCIUM 8.3 L 8.5-10.5 Dec 09, 2021 06:46 AM [place] [facility] MAGNESIUM Sp ecimen Type: PLASMA Comment: Tests performed on Gonway (405) SN:[id number] Ordering Provid er: ISATU TODD Report Released Date/Time: Dec 08, 2021 10:23 AM Reporting Lab: [place] [facility] [address] [facility] [address] Performing Lab: [place] [facility] [address] [facility] [address] MAGNESIUM 1.6 1.6-2.6 Dec 09, 2021 [facility] P4 GLU,BUN,CREAT,LYTES,CA Speci men Type: PLASMA 06:46 AM [facility] Comment: Tests performed on Gonway (405) SN:[id number] Ordering Provid er: ISATU TODD Report Released Date/Time: Dec 08, 2021 05:00 PM Reporting Lab: [facility] [address] [facility] [address] Performing Lab: [facility] [address] [facility] [address] UREA NITROGEN 6 L 7-25 SODIUM 134 [...] Reporting Lab: [facility] [address] [facility] [address] Performing Lab: [facility] [address] [facility] [address] WBC 7.1 4.5-11.0 RBC 4.40 4.23-5.66 HGB [...] 0.00 0-0 Dec 08, 2021 06:39 AM [place] [facility] [employer] [facility] MAGNESIUM Sp ecimen Type: PLASMA Comment: Testin g Performed on Gonway (405) SN:[id number] Ordering Provid er: ISATU TODD Report Released Date/Time: Dec 07, 2021 10:32 AM Reporting Lab: [facility] [address] [facility] [address] Performing Lab: [facility] [address] [facility] [address] MAGNESIUM 1.5 L 1.6-2.6 Dec 08, 2021 [place] [facility] T P4 GLU,BUN,CREAT,LYTES,CA Speci men Type: PLASMA 06:39 AM [facility] Comment: Testin g Performed on Gonway (405) SN:[id number] Ordering Provid er: ISATU TODD Report Released Date/Time: Dec 07, 2021 10:32 AM Reporting Lab: [employer] T [facility] [address] [facility] [address] Performing Lab: [facility] [address] [facility] [address] UREA NITROGEN 6 L 7-25 SODIUM 136 135-145 POTASSIUM 3.3 L 3.5-5.0 CHLORIDE 104 100-110 CARBON DIOXIDE 22 20-30 ANION GAP 10 4-16 GLUCOSE 133 H 65-100 CREATININE 0.76 0.5-1.5 CALCIUM 8.4 L 8.5-10.5 eGFR(CKD-EPI 2020) >90.0 >60 Dec 08, 2021 06:39 AM [place] [facility] T [facility] CBC PROFILE Sp ecimen Type: BLOOD No comment enter ed. Ordering Provid er: ISATU TODD Report Released Date/Time: Dec 07, 2021 10:32 AM Reporting Lab: [facility] [address] [facility] [address] Performing Lab: [facility] [address] [facility] WBC 8.4 4.5-11.0 RBC 4.75 [...] NRBC 0.00 0-0 Dec 07, 2021 06:42 [facility] LIVER PROFILE Specimen Typ e: PLASMA AM [facility] Comment: Tests performed on Gonway (405 SN:[id number] Ordering Provid er: PORFIRIO WALTERS Report Released Date/Time: Dec 06, 2021 06:57 PM Reporting Lab: [facility] [address] [facility] [address] Performing Lab: [facility] [address] [facility] [address] PROTEIN, TOTAL 5.7 L 6.0-8.5 ALBUMIN 2.4 L 3.2-5.0 BILIRUBIN, TOTAL 0.4 0.2-1.2 ALKALINE PHOSPHATASE 109 40-150 ALT(SGPT) 10 7-52 AST(SGOT) 15 5-34 FIB-4 SCORE 1.92 <2.67 Dec 07, 2021 [facility] P[facility] GLU,BUN,CREAT,LYTES,CA Speci men Type: PLASMA 06:42 AM [facility] Comment: Tests performed on Gonway (405) SN:[id number] Ordering Provid er: PORFIRIO WALTERS Report Released Date/Time: Dec 06, 2021 06:57 PM Reporting Lab: [place] [facility] [address] [facility] [address] Performing Lab: [place] [facility] [address] [facility] [address] UREA NITROGEN 9 7-25 SODIUM 135 135-145 POTASSIUM 3.5 3.5-5.0 CHLORIDE 103 100-110 CARBON DIOXIDE 22 20-30 ANION GAP 10 4-16 GLUCOSE 92 65-100 CREATININE 0.73 0.5-1.5 CALCIUM 8.0 L 8.5-10.5 eGFR(CKD-EPI 2020) >90.0 >60 Dec 07, 2021 06:42 AM [place] CBC PROFILE Specimen Type: BLOOD [facility] No comment enter ed. Ordering Provid er: PORFIRIO WALTERS Report Released Date/Time: Dec 06, 2021 06:57 PM Reporting Lab: [place] [facility] [address] [facility] [address] Performing Lab: [facility] [address] [facility] [address] WBC 5.7 4.5-11.0 RBC 4.15 L 4.23-5.66 [...] [facility] %) AUTOMATED Comment: Tests performed on Gonway (405) SN:[id number] Ordering Provid er: ISATU TODD Report Released Date/Time: Dec 07, 2021 10:28 AM Reporting Lab: [place] [facility] [address] [facility] [address] Performing Lab: [place] [facility] [address] [facility] [address] RETICULOCYTES (%) AUTOMATED 1.23 0. 6-2.0 RETICULOCYTES (ABS) AUTOMATED 0.052 0.030-0.090 Dec 06, 2021 09:45 [place] MRSA SURVL NARES Specimen Ty pe: NARES PM [facility] DNA No comment enter ed. Ordering Provid er: ALVARO VARGHESE Report Released Date/Time: Dec 07, 2021 02:20 AM Reporting Lab: [place] [facility] [address] [facility] [address] Performing Lab: [place] [facility] [address] [facility] [address] MRSA SURVL NARES DNA NEGATIVE NEGATIVE Dec 06, 2021 06:00 [place] URINALYSIS W/REFLEX TO Speci men Type: URINE PM [facility] CULTURE No comment enter ed. Ordering Provid er: JELANI SÁNCHEZ Report Released Date/Time: Dec 06, 2021 11:57 AM Reporting Lab: [place] [facility] [address] [facility] [address] Performing Lab: [place] [facility] [address] [facility] [address] URINE COLOR Arlin YELLOW SPECIFIC GRAVITY 1.029 [...] 21, [place] Comment: https://www.cdc.gov/coronavirus/2019-ncov/cases-updates/variant- surveillance/variant-info.html The Planitax SARS CoV 2 [employer] Research Assay-GX is a next-generation sequencing (NGS) [...] samples. The assay is run on the [employer] Sequencer, which performs automated library preparation, sequencing, analysis, and reporting. PM The sequence an alysis includes determination of viral phylogenetic lineage by comparison to the reference strain Wuhan-Hu-1, GenBank: [id number]. Sequence determination may not be possible owing [...] Lab: [facility] [address] [facility] [address] Performing Lab: [facility] [address] [facility] [address] SARS-CoV-2 CLADE() 22C (OMICRON) SARS-CoV-2 LINEAGE() BA.2.12.1 Dec 06, 2021 12:00 [facility] COVID-19 AG SCREEN Specimen Type: NASAL CAVITY PM [facility] PANEL BINAX(405) Comment: Testi ng Performed By: Mike Briscoe Ordering Provid er: JELANI SÁNCHEZ Report Released Date/Time: Dec 08, 2021 08:23 AM Reporting Lab: [facility] [address] [facility] [address] Performing Lab: [facility] [address] [facility] [address] COVID-19 AG SCRN(wrj BINAX) POSITIVE HH NE G Dec 06, 2021 [facility] P4 GLU,BUN,CREAT,LYTES,CA Speci men Type: PLASMA 12:00 PM [facility] Comment: Testin g Performed on Pham Ground Operations Superintendent (405) SN:[id number] Ordering Provid er: JELANI SÁNCHEZ Report Released Date/Time: Dec 06, 2021 11:57 AM Reporting Lab: [facility] [address] [facility] [address] Performing Lab: [facility] [address] [facility] [address] UREA NITROGEN 13 7-25 SODIUM 138 135-145 POTASSIUM 3.8 3.5-5.0 CHLORIDE 103 100-110 CARBON DIOXIDE 23 20-30 ANION GAP 12 4-16 GLUCOSE 105 H 65-100 CREATININE 0.90 0.5-1.5 CALCIUM 8.7 8.5-10.5 eGFR(CKD-EPI 2020) >90.0 >60 Dec 06, 2021 12:00 PM [facility] TROPONIN II Sp ecimen Type: PLASMA Comment: Tests performed on Pham [employer] Operations Superintendent (405) SN:[id number] Ordering Provid er: JELANI SÁNCHEZ Report Released Date/Time: Dec 06, 2021 11:57 AM Reporting Lab: [place] [facility] [address] [facility] [address] Per[facility]: [facility] [address] [facility] [address] TROPONIN II 0.03 0.00-0.29 Dec 06, 2021 12:00 PM [facility] LIVER PROFILE Sp ecimen Type: PLASMA Comment: Testin g Performed on Pham [employer] Operations Superintendent (405) SN:[id number] Ordering Provid er: JELANI SÁNCHEZ Report Released Date/Time: Dec 06, 2021 11:57 AM Reporting Lab: [facility] [address] [facility] [address] Performing Lab: [facility] [address] [facility] [address] PROTEIN, TOTAL 6.6 6.0-8.5 ALBUMIN 2.8 L 3.2-5.0 BILIRUBIN, TOTAL 0.6 0.2-1.2 ALKALINE PHOSPHATASE 134 40-150 ALT(SGPT) 13 7-52 AST(SGOT) 18 5-34 FIB-4 SCORE 1.94 <2.67 Dec 06, 2021 12:00 PM [facility] BNP(P[facility] Sp ecimen Type: PLASMA Comment: Tests performed on [employer] Superintendent ([id number]) SN:[id number] Ordering Provid er: JELANI SÁNCHEZ Report Released Date/Time: Dec 06, 2021 11:57 AM Reporting Lab: [facility] [address] [facility] [address] Performing Lab: [facility] [address] [facility] [address] BNP(P) 224.8 H 10-100 Dec 06, 2021 [facility] COVID-19+FLU/RSV DIAGNOSTIC Spe cimen Type: NASOPHARYNX 12:00 PM [facility] PANEL(405) Comment: Tests performed on [employer] Genexpert (405) Critical results called to and read back by: ALESHIA WILKINSON RN 12/06/21 @ 1312 Ordering Provid er: JELANI SÁNCHEZ Report Released Date/Time: Dec 06, 2021 11:57 AM Reporting Lab: [facility] [address] [facility] [address] Performing Lab: [facility] [address] [facility] [address] FLU A(PCR) NEGATIVE NEGATIVE FLU B(PCR) NEGATIVE NEGATIVE RSV(PCR) NEGATIVE NEGATIVE COVID-19([id number]) DETECTED HH NO T DETECTED Dec 06, 2021 12:00 PM [facility] Sp ecimen Type: BLOOD No comment enter ed. Ordering Provid er: JELANI SÁNCHEZ Report Released Date/Time: Dec 06, 2021 11:57 AM Reporting Lab: [facility] [address] [facility] [address] Performing Lab: [facility] [address] [facility] [address] WBC 7.2 4.5-11.0 RBC 4.86 4.23-5.66 HGB [...] Pulse Blood Respiratory SP02 Pain Height Weight Amlicar dy Source Pressure Rate Mass Index Dec 09, 0 2021 10:43 RIVER PM [facility] Dec 09, 98.2 F 82 111/58 18 /min 97 % 2021 08:31 /min mm[Hg] RIVER PM [facility] Dec 09, 98.3 F 106 113/69 18 /min 97 % WHITE 2021 02:37 /min mm[Hg] RIVER PM [facility] Dec 09, 0 2021 11:42 RIVER AM [facility] Dec 09, 97.1 F 94 120/73 16 /min 98 % 0 WHITE 2021 07:40 /min mm[Hg] RIVER AM [facility] Social History: Smoking Status (Most current) and Tobacco Use (All prior to encounter date) This section includes the most current, and the historical, smoking and tobacco-related health factors from the PA facility where the Encounter took place.Current Smoking Status This section includes the most current smoking, or tobacco-related health factor, from the PA facility where the Encounter took place. Date/Time Current Smoking Status Comment Facility Dec 06, 2021 11:40 AM QUIT TOBACCO USE > 7 YEARS AGO [facility] Tobacco Use History This section includes a history of the smoking, or tobacco- related health factors, that were collected on or before the date of the Encounter. The data comes from the PA facility where the Encounter took place. Date/Time Smoking Status/Tobacco Use Comment [facility] Apr 01, 2020 01:16 [...] USE IN PAST YEAR CAREY DOYLE [facility] May 01, 2016 03:11 PM QUIT TOBACCO USE IN PAST YEAR CAREY DOYLE [facility] May 01, 2016 11:19 AM QUIT TOBACCO USE IN PAST YEAR [facility]AREY DOYLE [place] [facility] Mar 16, 2016 12:50 PM V1-PT DECLINES REF TO TOBACCO CAREY DOYLE [place] [facility] CESS [facility] Mar 16, 2016 12:50 PM V1-PT THINKING ABOUT QUIT CAREY DOYLE [facility] TOBACCO USE Aug 12, 2015 08:48 AM CURRENT SMOKER CAREY Yates [facility] Radiology Reports: +/- 30 days of [...] the Encounter. The data comes from all PA treatment facilities. Date/Time Radiology Report Provider Source Dec 13, 2021 12:57 PM MRI ABDOMEN W/WO CONTRAST: MARYELLEN LONG LUCAS LARES N [id number] -1950 [facility] Exm Date: DEC 13, 2021@12:57 Req Phys: ISATU TODD Loc: OP Unknown/0 12-15-2021@13:20 Img Loc: MRI IMAGING (OOS) Service: [facility] MED[facility]INE (Case [id number] COMPLETE) MRI ABDOMEN W/WO CONTRAST (M RI Detailed) CPT:92994 Reason for Study: further characterization of a [...] new lyphadenopathy REQUESTING MD: Isatu Todd PAGER: [phone] PHONE: [phone] Weight: 232.2 lb [105.32 kg] (12/12/2021 05:00) [...] patient will need to arrange for a garbage collector driver to take him/her home after the [...] 15, 2021 Date Verified: DEC 15, 2021 Project Manager/Design Manager E-Sig:/ES/MARYELLEN LONG Report: MRI ABDOMEN W/WO [...] MALIGNANCY Primary Interpreting Staff: Staff AMELIA THOMAS (Project Manager/Design Manager) / Dec 10, 2021 09:[address] ABDOMEN & PELVIS: [facility] LUCAS MEEK N [id number] -1950 M [facility]ICE [facility] Exm Date: DEC 10, 2021@09:30 Req Phys: ISATU TODD Loc: 1S MED/12-10@10:57 Img Loc: CT SCAN (OOS) Service: [facility] (Case [id number] COMPLETE) CT ABD & PELVIS WITHOUT CONT RAST (CT Detailed) CPT:56631 Reason for Study: 71 yo male with [...] INDEX - NO HEIGHTS FOUND Pager number: [phone] STAT orders MUST be call ed to RADIOLOGY [phone] to speak to the appropriate chemical engineering technician. Report Status: Verified Date Reported: DEC 10, 2021 Date Verified: DEC 10, 2021 Project Manager/Design Manager E-Sig: Report: EXAM: CT abdomen and [...] ph nodes. READING PHYSICIAN: Ramone Munoz D.O. [phone] 12/10/2021 10:55 EDT [facility] National Teleradiology Program [phone] (For Medical Practitioner Use Only ) [address] [place] [address] Attention Patients / Veterans: If you have ques tions or concerns about these test results, please contact your o rdering provider or primary care team. Primary Diagnostic Code: SIGNIFICANT ABNORMALIT Y, ATTN NEEDED Primary Interpreting Staff: RADIOLOGY,OUTSIDE SERVICE, Staff Physician / Dec 09, 2021 07:34 AM BASW (MODIFIED): JESSIE CHENEY [facility] LUCAS MEEK N [id number] -1950 M [facility] Exm Date: DEC 09, 2021@07:34 Req Phys: ISATU TODD Loc: 1S MED/12-09@11:26 Img Loc: XRAY (OOS) Service: [facility] MEDICINE (Case [id number] COMPLETE) BASW (MODIFIED) (RAD Detaile d) CPT:06417 Contrast Media : Barium Reason for Study: dysphagia ?esophageal spasm Clinical History: Report Status: Verified Date Reported: DEC 09, 2021 Date Verified: DEC 09, 2021 Project Manager/Design Manager E-Sig:/ES/JESSIE CHENEY Report: DLEISA (MODIFIED) , 12/09/2021 TECHNIQUE: Real-time fluoroscopic images [...] REQUIRED Primary Interpreting Staff: JESSIE CHENEY, RADIOLOGIST (Project Manager/Design Manager) /TLC Dec 06, 2021 12:[address] CHEST (INCLUDES ADRENALS): JESSIE CHENEY [facility] LUCAS MEEK N [id number] -1950 M [facility] Exm Date: DEC 06, 2021@12:59 Req Phys: JELANI SÁNCHEZ Pat Loc: [facility] ED DAYS M 1RD (Req'g Loc) Img Loc: CT SCAN (OOS) Service: Unknown (Case [id number] COMPLETE) CT THORAX W/O CONT (CT Detai led) CPT:32102 Reason for Study: Opacification right chest Clinical History: No contrast allergy BUN: 13 (12/06/21 12:00) CREATI: 0.90 (12/06/21 12:00) eGFR 05/16/21 09:43 52 L Weight: 232.6 lb [105.51 kg] (12/06/2021 11:40) BODY MASS INDEX - NO HEIGHTS FOUND Pager number: [phone] STAT orders MUST be called t o RADIOLOGY [phone] to speak to the appropriate chemical engineering technician. Indications - Other: Opacification right chest, covid positive, lung cancer histo Report Status: Verified Date Reported: DEC 06, 2021 Date Verified: DEC 06, 2021 Project Manager/Design Manager E-Sig:/ES/JESSIE CHENEY Report: CT THORAX W/O [...] REQUIRED Primary Interpreting Staff: JESSIE CHENEY, RADIOLOGIST (Project Manager/Design Manager) Primary Interpreting Resident: PRINCE CHAMPION, Resident /ABBI Dec 06, 2021 11:58 AM CHEST SINGLE VIEW: JESSIE CHENEYT LUCAS MEEK N [id number] -1950 M [facility] Exm Date: DEC 06, 2021@11:58 Req Phys: JELANI SÁNCHEZ Pat Loc: [facility] ED DAYS M 1RD (Req'g Loc) Img Loc: XRAY (OOS) Service: Unknown (Case [id number] COMPLETE) CHEST SINGLE VIEW (RAD Detai led) CPT:70150 Proc Modifiers : PORTABLE EXAM Reason for Study: SOB, home covid test positive Clinical History: Report Status: Verified Date Reported: DEC 06, 2021 Date Verified: DEC 06, 2021 Project Manager/Design Manager E-Sig:/ES/JESSIE CHENEY Report: Exam type: Chest [...] REQUIRED Primary Interpreting Staff: JESSIE CHENEY, RADIOLOGIST (Project Manager/Design Manager) /TLC Pathology Reports: +/- 30 days [...] the Encounter. The data comes from all PA treatment facilities. Date/Time Pathology Report Provider Source Jan 03, 2022 10:28 AM LR SURGICAL PATHOLOGY REPORT: STEFANY MILLER [facility] LOCAL TITLE: LR SURGICAL PATHOLOGY REPORT [facility] STANDARD TITLE: PATHOLOGY REPORT DATE OF NOTE: JAN 03, 2022@10:28:01 ENTRY DATE: JAN 03, 2022@10:28:01 AUTHOR: NIURKA MILLER EXP COSIGNER: URGENCY: STATUS: COMPLETED $APHDR Reporting Lab: [facility] [CLIA# [id number]] [address] [place] [address] - - - - - - [...] automatically d ocumented from SURGERY package case #[id number] Field (#32) PRINCIPAL PRE-OP DIAGNOSIS, (#.72) OTHER [...] automatically d ocumented from SURGERY package case #[id number] Field (#34) PRINCIPAL POST-OP DIAG, (#.74) OTHER [...] Label: Lucas Meek Paperwork: Lucas Meek Cassette: [id number];..;KALYANI;.;405;[phone] Specimen is labeled: ES bx Received in formalin are several pieces of pale boyd and brown tissue, 1.2 x 0.7 cm in aggregate. Submitted entirely in 1 cassette [id number];..;KALYANI;.;405;[id number] SAW 12/15/2021 Microscopic exam: *+* MODIFIED REPORT *+* (Last modified: JAN 03, 2022@09:30:20 typed by NIURKA WADDELL) DIAGNOSIS: A. 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 Kendell long. TIARA Coombs was notified on 12/21/21. Modified on 01/03/22 to include report from [facility] stating that tumor is NEGATIVE for her2/ matheus amplification. The attending pathologist who signature mansoor ears on this report has reviewed all diagnostic slides and has edited t he gross and/or microscopic portion of this report in rendering the final pathologic diagnosis. [address] [address] CPT: 33040 /emely/ NIURKA Yeung MD Signed Jan 03, 2022@10:28 Performing Laboratory: Surgical Pathology Report Performed By: CAREY MONTOYA [facility] [CLIA# [id number]] [address] [place] [address] $FTR - - - - - [...] - - LUCAS MEEK STANDARD FORM 515 ID:[id number] SEX:M :1950 AGE: 71 LOC: SDM END PCP: Isatu Todd /emely/ NIURKA MILLER Staff Signed: 01/03/2022 10:28 Dec 21, 2021 11:46 AM LR SURGICAL PATHOLOGY REPORT: STEFANY MILLER [facility] LOCAL TITLE: LR SURGICAL PATHOLOGY REPORT [facility] STANDARD TITLE: PATHOLOGY REPORT DATE OF NOTE: DEC 21, 2021@11:46:59 ENTRY DATE: DEC 21, 2021@11:46:59 AUTHOR: NIURKA MILLER EXP COSIGNER: URGENCY: STATUS: COMPLETED $APHDR Reporting Lab: [facility] [CLIA# [id number]] [address] [place] [address] - - - - - - [...] automatically d ocumented from SURGERY package case #[id number] Field (#32) PRINCIPAL PRE-OP DIAGNOSIS, (#.72) OTHER [...] automatically d ocumented from SURGERY package case #[id number] Field (#34) PRINCIPAL POST-OP DIAG, (#.74) OTHER [...] Label: Lucas Meek Paperwork: Lucas Meek Cassette: [id number];..;KALYANI;.;405;[phone] Specimen is labeled: ES bx Received in formalin are several pieces of pale boyd and brown tissue, 1.2 x 0.7 cm in aggregate. Submitted entirely in 1 cassette [id number];..;KALYANI;.;405;[id number] SAW 12/15/2021 Microscopic exam: DIAGNOSIS: A. 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 Kendell long. TIARA Coombs was notified on 12/21/21. The attending pathologist who signature mansoor ears on this report has reviewed all diagnostic slides and has edited t he gross and/or microscopic portion of this report in rendering the final pathologic diagnosis. [address] [address] CPT: 09822 /emely/ NIURKA Yeung MD Signed Dec 21, 2021@11:46 Performing Laboratory: Surgical Pathology Report Performed By: [facility] [CLIA# [id number]] [address] [place] [address] $FTR - - - - - [...] - - - - - - LUCAS MEKE STANDARD FORM 515 ID:[id number] SEX:M :1950 AGE: 71 LOC: [facility] END PCP: Isatu Todd /emely/ NIURKA Yeung MD Signed: 12/21/2021 11:46 Dec 06, 2021 03:30 PM LR [facility]Y [facility] Reporting Lab: [facility] [CLIA# [id number]] [address] [place] [address] Accession [UID]: [id number] [[id number]] Receiv ed: Dec 06, 2021@16:14 Collection sample: BLOOD CUL T BOTTLE(NIRMAL/AERO)Collection date: Dec 06, 2021 15:30 Site/Specimen: BLOOD Provider: JELANI SÁNCHEZ Comment on specimen: LAC Test(s) ordered: BLOOD CULTURE ANAEROBI C....... completed: Dec 12, 2021 06:18 * BACTERIOLOGY FINAL REPORT => Dec 12, 2021 06:1 8 TECH CODE: [id number] Bacteriology Remark(s): NO GROWTH IN 5 DAYS =--=--=--=--=--=--=--=--=--=--=--=--=--= --=--=--=--=--=--=--=--=--=--=--=--=-- Performing Laboratory: Bacteriology Report Performed By: [facility] [CLIA# [id number]] [address] [place] [address] Dec 06, 2021 03:30 PM LR MICROBIOLOGY REPORT: [facility] Reporting Lab: [facility] [CLIA# [id number]] [address] [place] [address] Accession [UID]: [id number] [[id number]] Receiv ed: Dec 06, 2021@16:14 Collection sample: BLOOD CUL T BOTTLE(NIRMAL/AERO)Collection date: Dec 06, 2021 15:30 Site/Specimen: BLOOD Provider: JELANI SÁNCHEZ Comment on specimen: LAC Test(s) ordered: BLOOD CULTURE AEROBIC. ........ completed: Dec 12, 2021 06:17 * BACTERIOLOGY FINAL REPORT => Dec 12, 2021 06:1 7 TECH CODE: [id number] Bacteriology Remark(s): NO GROWTH IN 5 DAYS =--=--=--=--=--=--=--=--=--=--=--=--=--= --=--=--=--=--=--=--=--=--=--=--=--=-- Performing Laboratory: Bacteriology Report Performed By: [facility] [CLIA# [id number]] [address] [place] [address]
--- OUTSIDE RECORDS SUMMARY | 2022-01-19 08:30 | XMS_ITS ---
DAILY HOSPITALIZATION DATA [facility] Encounter Summary Created on:December 09, 2021 Patient:LUCAS MEEK Sex:Male :1950 Author Organization [facility] Address [address] [place] [address] Support Name Relationship Address Phone YUSRA MEEK Unavailable [address] [place] [address] YUSRA MEEK Unavailable [address] [place] [address] CLAY MOSLEY Unavailable Unavailable SJ SANTACRUZ Unavailable [...] MEDICARE MEDICARE PART Jun 18, PART A [id number] DO KALYANI PATIENT (WNR) (M) A 2016 13A 1 UGLAS MEDICARE MEDICARE PART Jun 18, PART A [id number] DO KALYANI PATIENT (WNR) (M) A 2017 VH81 2 LAS MEDICARE MEDICARE PART Jun 18, PART B [id number] DO KALYANI PATIENT (WNR) (M) B 2016 13A 1 UGLAS MEDICARE MEDICARE PART Jun 18, PART B [id number] DO KALYANI PATIENT (WNR) (M) B 2017 VH81 2 UGLAS UNITED MEDICARE MCR(Jun [id number] Luz MEEK PATIENT HEALTHCARE ADVANTAGE NR) 2021 37 0 [facility] (WNR) Selected Encounter This section includes the information on record at [place] for the Encounter. Date/Time Encounter Type Encounter Description Reason Provider Source Dec 09, 2021 02:39 Inpatient Visit DAILY HOSPITALIZATION DATA PM IHE [...] AMBULATORY - NONE [place] [facility] Jan 06, 2022 02:00 PM [place] [facility] Jan 10, 2022 11:30 AM AMBULATORY - MEDICINE [facility] Jan 24, 2022 08:00 AM [place] [facility] Feb 21, 2022 10:00 AM AMBUL[place] [facility] Mar 21, 2022 10:30 AM AMBULATORY - [...] The data comes from all [place] [facility]. Test Date/Time Test Type Test Details Facility Name October 31, 2021 07:37 AM Consult Order [facility]ITY C[facility]-EGD [facility] Cons Patient Service Rep's Choice November 15, 2021 10:37 AM Consult Order [facility] Cons Patient Service Rep's Choice Dec 06, 2021 12:52 PM Pharmacy [...] [place] OUTPATIENT Cons [facility] Patient Service Rep's Choice Jan 15, 2022 10:08 PM Consult Order [facility] Cons Patient Service Rep's Choice Lab Results: +/- 30 days of [...] Reference Range Comment Dec 15, 2021 [place] P4 GLU,BUN,CREAT,LYTES,CA Speci men Type: PLASMA 06:43 AM [facility] Comment: Tests performed on Paxata (405) SN:[id number] Ordering Provid er: ISATU TODD Report Released Date/Time: Dec 11, 2021 07:42 AM Reporting Lab: [facility] T [facility] [address] [facility] [address] Performing Lab: [facility] [address] [facility] [address] UREA NITROGEN 9 7-25 SODIUM 137 135-145 [...] T [facility] [address] [facility] [address] Performing Lab: [facility] [address] [facility] [address] WBC 5.7 4.5-11.0 RBC 4.22 L 4.23-5.66 [...] ABSOLUTE NRBC 0.00 0-0 Dec 14, 2021 [facility] CYTOGENETIC Specimen Type: ESOPHAGUS 02:59 PM [facility]) Comment: ~For T est: CYTOGENETIC FISH([facility]) ~FISH HER 2 NUE, FFPE See full report in Intivix Image display viewer/tab#LAB-Reference Ordering Provid er: NIURKA MILLER Report Released Date/Time: Dec 21, 2021 12:11 PM Reporting Lab: [facility] [address] [facility] [address] Performing Lab: [facility] CYTOGENETIC FISH([facility]) comment Dec 14, 2021 [facility] P4 GLU,BUN,CREAT,LYTES,CA Speci men Type: PLASMA 06:27 AM [facility] Comment: Tests performed on Paxata (405) SN:[id number] Ordering Provid er: ISATU TODD Report Released Date/Time: Dec 11, 2021 07:42 AM Reporting Lab: [facility] [address] [facility] [address] Performing Lab: [facility] [address] [facility] [address] UREA NITROGEN 10 7-25 SODIUM 137 135-145 [...] Reporting Lab: [facility] [address] [facility] [address] Performing Lab: [facility] [address] [facility] [address] WBC 6.0 4.5-11.0 RBC 4.29 4.23-5.66 HGB [...] ABSOLUTE NRBC 0.00 0-0 Dec 13, 2021 [facility] P4 GLU,BUN,CREAT,LYTES,CA Speci men Type: PLASMA 06:34 AM [facility] Comment: Tests performed on Paxata (405) SN:[id number] Ordering Provid er: ISATU TODD Report Released Date/Time: Dec 11, 2021 07:42 AM Reporting Lab: [facility] [address] [facility] [address] [facility] [address] [facility] [address] UREA NITROGEN 12 7-25 SODIUM 136 135-145 [...] Reporting Lab: [facility] [address] [facility] [address] Performing Lab: [facility] [address] [facility] [address] WBC 5.6 4.5-11.0 RBC 4.28 4.23-5.66 HGB [...] ABSOLUTE NRBC 0.00 0-0 Dec 12, 2021 [facility] P4 GLU,BUN,CREAT,LYTES,CA Speci men Type: PLASMA 06:21 AM [facility] Comment: Tests performed on Paxata (405) SN:[id number] Ordering Provid er: ISATU TODD Report Released Date/Time: Dec 11, 2021 07:42 AM Reporting [facility]: [facility] [address] [facility] [address] Performing [facility]: [facility] [address] [facility] [address] UREA NITROGEN 11 7-25 SODIUM 139 135-145 [...] 10, 2021 07:22 AM Reporting Lab: [facility] [address] [facility] [address] [facility] Lab: [facility] [address] [facility] [address] WBC 5.5 4.5-11.0 RBC 4.37 4.23-5.66 HGB [...] 0.00 0-0 Dec 12, 2021 06:00 AM LakooT [facility] MAGNESIUM Sp ecimen Type: PLASMA Comment: Testin g Performed on Paxata (405) SN:[id number] Ordering Provid er: ISATU TODD Report Released Date/Time: Dec 12, 2021 08:24 AM Reporting Lab: [place] [facility] [address] [facility] [address] Performing Lab: [employer] [place] [facility] [address] [facility] [address] MAGNESIUM 1.8 1.6-2.6 Dec 12, 2021 06:00 AM Lak[facility]T [facility] PHOSPHORUS Sp ecimen Type: PLASMA Comment: Testin g Performed on Paxata (405) SN:[id number] Ordering Provid er: ISATU TODD Report Released Date/Time: Dec 12, 2021 08:24 AM Reporting Lab: [place] [facility] [address] [facility] [address] Performing Lab: [place] [employer] [facility] [address] [facility] [address] PHOSPHORUS 3.1 2.5-5.0 Dec 11, 2021 06:15 AM [employer] [place] [employer] [facility] ELECTROLYTES Sp ecimen Type: PLASMA Comment: Tests performed on Paxata (405) SN:[id number] Ordering Provid er: ISATU TODD Report Released Date/Time: Dec 10, 2021 07:22 AM Reporting Lab: [place] [facility] [address] [facility] [address] Performing Lab: [place] [facility] [address] [facility] [address] SODIUM 137 135-145 POTASSIUM 4.3 3.5-5.0 CHLORIDE 108 100-110 CARBON DIOXIDE 20 20-30 ANION GAP 9 4-16 Dec 11, 2021 06:15 AM [place] [facility] CBC PROFILE Sp ecimen Type: BLOOD Comment: Result s checked Ordering Provid er: ISATU TODD Report Released Date/Time: Dec 10, 2021 07:22 AM Reporting Lab: [place] [facility] [facility] [address] [facility] [address] Performing Lab: [place] OMEGAT [facility] [address] [facility] [address] WBC 5.8 4.5-11.0 RBC 4.37 4.23-5.66 HGB [...] 0-0 Dec 11, 2021 06:00 AM [facility] PHOSPHORUS Sp ecimen Type: PLASMA Comment: Tests performed on Paxata (684) SN:[id number] Results checked Ordering Provid er: ISATU TODD Report Released Date/Time: Dec 11, 2021 07:44 AM Reporting Lab: [facility] [facility] [address] [facility] [address] Performing Lab: [place] OMEGAT NCMROC [address] [facility] [address] PHOSPHORUS 3.0 2.5-5.0 Dec 10, 2021 08:05 AM [place] [facility] MAGNESIUM Sp ecimen Type: PLASMA Comment: [place] [id number] on Dec 10, 2021@08:31 Tests performed on Paxata (405) SN:[id number] Ordering Provid er: ISATU TODD Report Released Date/Time: Dec 10, 2021 07:22 AM Reporting Lab: [place] [facility] [address] [facility] [address] Performing Lab: [place] [facility] [address] [facility] [place] [address] MAGNESIUM 1.7 1.6-2.6 Dec 10, 2021 08:05 AM [place] UREA NITROGEN Specimen Type: PLASMA [facility] Comment: [place] [id number] on Dec 10, 2021@08:31 Tests performed on Paxata (405) SN:[id number] Ordering Provid er: ISATU TODD Report Released Date/Time: Dec 10, 2021 07:22 AM Reporting Lab: [place] [facility] [address] [facility] [place] [address] Performing Lab: [place] [facility] [address] [facility] [place] [address] UREA NITROGEN 8 7-25 Dec 10, 2021 08:05 AM [place] [facility] GLUCOSE Sp ecimen Type: PLASMA Comment: [place] [id number] on Dec 10, 2021@08:31 Tests performed on Paxata (405) SN:[id number] Ordering Provid er: ISATU TODD Report Released Date/Time: Dec 10, 2021 07:22 AM Reporting Lab: [place] [facility] [address] [facility] [place] [address] Performing Lab: [place] [facility] [address] [facility] [place] [address] GLUCOSE 144 H 65-100 Dec 10, 2021 08:05 AM [place] [facility] PHOSPHORUS Sp ecimen Type: PLASMA Comment: [place] [id number] on Dec 10, 2021@08:31 Tests performed on Paxata (405) SN:[id number] Ordering Provid er: ISATU TODD Report Released Date/Time: Dec 10, 2021 07:22 AM Reporting Lab: [place] [facility] [address] [facility] [place] [address] Performing Lab: [place] [facility] [address] [facility] [place] [address] PHOSPHORUS 1.8 L 2.5-5.0 Dec 10, 2021 08:05 AM [place] [facility] ELECTROLYTES Sp ecimen Type: PLASMA Comment: [place] [id number] on Dec 10, 2021@08:31 Tests performed on Pham codesy (405) SN:[id number] Ordering Provid er: ISATU TODD Report Released Date/Time: Dec 10, 2021 07:22 AM Reporting Lab: [place] [facility] [address] [facility] [address] Performing Lab: [place] [facility] [address] [facility] [address] SODIUM 139 135-145 POTASSIUM 3.7 3.5-5.0 CHLORIDE 107 100-110 CARBON DIOXIDE 24 20-30 ANION GAP 8 4-16 Dec 10, 2021 08:05 AM [place] [facility] CALCIUM Sp ecimen Type: PLASMA Comment: [place] [id number] on Dec 10, 2021@08:31 Tests performed on Pham codesy (405) SN:[id number] Ordering Provid er: ISATU TODD Report Released Date/Time: Dec 10, 2021 07:22 AM Reporting Lab: [place] [facility] [address] [facility] [address] Performing Lab: [place] [facility] [address] [facility] [address] CALCIUM 8.3 L 8.5-10.5 Dec 10, 2021 08:05 [place] CREATININE WITH eGFR Specime n Type: PLASMA AM [facility] PANEL Comment: [place] [id number] on Dec 10, 2021@08:31 Tests performed on Paxata (405) SN:[id number] Ordering Provid er: ISATU TODD Report Released Date/Time: Dec 10, 2021 07:22 AM Reporting Lab: [place] [facility] [address] [facility] [address] Performing Lab: [place] [facility] [address] [facility] [address] CREATININE 0.78 0.5-1.5 eGFR(CKD-EPI 2020) >90.0 >60 Dec 10, 2021 08:05 AM [facility] CBC PROFILE Sp ecimen Type: BLOOD No comment enter ed. Ordering Provid er: ISATU TODD Report Released Date/Time: Dec 10, 2021 07:22 AM Reporting Lab: [place] [facility]ME[facility] [address] [facility] [address] Performing Lab: [place] [facility]MEGAT [facility] [address] [facility] [address] WBC 7.0 4.5-11.0 RBC 4.54 4.23-5.66 HGB [...] 0-0 Dec 09, 2021 06:46 AM [facility] MAGNESIUM Sp ecimen Type: PLASMA Comment: Tests performed on Paxata (455) SN:[id number] Ordering Provid er: ISATU TODD Report Released Date/Time: Dec 08, 2021 10:23 AM Reporting Lab: [facility] [address] [facility] [address] Performing Lab: [facility] [address] [facility] [address] MAGNESIUM 1.6 1.6-2.6 Dec 09, 2021 [facility] P4 GLU,BUN,CREAT,LYTES,CA Speci men Type: PLASMA 06:46 AM [facility] Comment: Tests performed on Paxata (405) SN:[id number] Ordering Provid er: ISATU TODD Report Released Date/Time: Dec 08, 2021 05:00 PM Reporting Lab: [facility] [address] [facility] [address] Performing Lab: [facility] [address] [facility] [address] UREA NITROGEN 6 L 7-25 SODIUM 134 [...] Reporting Lab: [facility] [address] [facility] [address] Performing Lab: [facility] [address] [facility] [address] WBC 7.1 4.5-11.0 RBC 4.40 4.23-5.66 HGB [...] 0.00 0-0 Dec 08, 2021 06:39 AM [place] [employer] T [facility] MAGNESIUM Sp ecimen Type: PLASMA Comment: Testin g Performed on Paxata (405) SN:[id number] Ordering Provid er: ISATU TODD Report Released Date/Time: Dec 07, 2021 10:32 AM Reporting Lab: [facility] [address] [facility] [address] Performing Lab: [facility] [address] [facility] [address] MAGNESIUM 1.5 L 1.6-2.6 Dec 08, 2021 [place] [employer] T P4 GLU,BUN,CREAT,LYTES,CA Speci men Type: PLASMA 06:39 AM [facility] Comment: Testin g Performed on Paxata (405) SN:[id number] Ordering Provid er: ISATU TODD Report Released Date/Time: Dec 07, 2021 10:32 AM Reporting Lab: [employer] T [facility] [address] [facility] [address] Performing Lab: [facility] [address] [facility] [address] UREA NITROGEN 6 L 7-25 SODIUM 136 135-145 POTASSIUM 3.3 L 3.5-5.0 CHLORIDE 104 100-110 CARBON DIOXIDE 22 20-30 ANION GAP 10 4-16 GLUCOSE 133 H 65-100 CREATININE 0.76 0.5-1.5 CALCIUM 8.4 L 8.5-10.5 eGFR(CKD-EPI 2020) >90.0 >60 Dec 08, 2021 06:39 AM [place] [employer] T [facility] CBC PROFILE Sp ecimen Type: BLOOD No comment enter ed. Ordering Provid er: ISATU TODD Report Released Date/Time: Dec 07, 2021 10:32 AM Reporting Lab: [facility] [address] [facility] [address] Performing Lab: [facility] [address] [facility] [...] NRBC 0.00 0-0 Dec 07, 2021 06:42 [facility] LIVER PROFILE Specimen Typ e: PLASMA AM [facility] Comment: Tests performed on Paxata (405 SN:[id number] Ordering Provid er: PORFIRIO WALTERS Report Released Date/Time: Dec 06, 2021 06:57 PM Reporting Lab: [facility] [address] [facility] [address] Performing Lab: [facility] [address] [facility] [address] PROTEIN, TOTAL 5.7 L 6.0-8.5 ALBUMIN 2.4 L 3.2-5.0 BILIRUBIN, TOTAL 0.4 0.2-1.2 ALKALINE PHOSPHATASE 109 40-150 ALT(SGPT) 10 7-52 AST(SGOT) 15 5-34 FIB-4 SCORE 1.92 <2.67 Dec 07, 2021 [facility] P4 GLU,BUN,CREAT,LYTES,CA Speci men Type: PLASMA 06:42 AM [facility] Comment: Tests performed on Paxata (405) SN:[id number] Ordering Provid er: PORFIRIO WALTERS Report Released Date/Time: Dec 06, 2021 06:57 PM Reporting Lab: [place] [facility] [address] [facility] [address] Performing Lab: [place] [facility] [address] [facility] [address] UREA NITROGEN 9 7-25 SODIUM 135 135-145 POTASSIUM 3.5 3.5-5.0 CHLORIDE 103 100-110 CARBON DIOXIDE 22 20-30 ANION GAP 10 4-16 GLUCOSE 92 65-100 CREATININE 0.73 0.5-1.5 CALCIUM 8.0 L 8.5-10.5 eGFR(CKD-EPI 2020) >90.0 >60 Dec 07, 2021 06:42 AM [place] CBC PROFILE Specimen Type: BLOOD [facility] No comment enter ed. Ordering Provid er: PORFIRIO WALTERS Report Released Date/Time: Dec 06, 2021 06:57 PM Reporting Lab: [place] [facility] [address] [facility] [address] Performing Lab: [facility] [address] [facility] [address] WBC 5.7 4.5-11.0 RBC 4.15 L 4.23-5.66 [...] [facility]AM[facility] %) AUTOMATED Comment: Tests performed on Paxata (405) SN:[id number] Ordering Provid er: ISATU TODD Report Released Date/Time: Dec 07, 2021 10:28 AM Reporting Lab: [place] [facility] [address] [facility] [address] Performing Lab: [place] [facility] [address] [facility] [address] RETICULOCYTES (%) AUTOMATED 1.23 0. 6-2.0 RETICULOCYTES (ABS) AUTOMATED 0.052 0.030-0.090 Dec 06, 2021 09:45 [place] MRSA SURVL NARES Specimen Ty pe: NARES PM [facility] DNA No comment enter ed. Ordering Provid er: ALVARO VARGHESE Report Released Date/Time: Dec 07, 2021 02:20 AM Reporting Lab: [place] [facility] [address] [facility] [address] Performing Lab: [place] [facility] [address] [facility] [address] MRSA SURVL NARES DNA NEGATIVE NEGATIVE Dec 06, 2021 06:00 [place] URINALYSIS W/REFLEX TO Speci men Type: URINE PM [facility] CULTURE No comment enter ed. Ordering Provid er: JELANI SÁNCHEZ Report Released Date/Time: Dec 06, 2021 11:57 AM Reporting Lab: [place] [facility] [address] [facility] [address] Performing Lab: [place] [facility] [address] [facility] [address] URINE COLOR Arlin YELLOW SPECIFIC GRAVITY 1.029 [...] 21, [place]IANT Comment: https://www.cdc.gov/coronavirus/2019-ncov/cases-updates/variant- surveillance/variant-info.html The [employer] SARS CoV 2 [employer] Assay-GX is a next-generation sequencing (NGS) assa 2021 [facility] SEQUENCING y that determine s the complete genome sequence of the SARS-CoV-2 virus. The assay contains variant-tolerant primers to broaden and improve the coverage for variant detection and increase the sensitivity 12:00 [facility] PNL(WH) of the panel to enable detection from lower viral titer samples. The assay is run on the Work4 Sequencer, which performs automated library preparation, sequencing, analysis, and reporting. PM The sequence an alysis includes determination of viral phylogenetic lineage by comparison to the reference strain Wuhan-Hu-1, GenBank: [id number]. Sequence determination may not be possible owing [...] and its performance characteristics determined by the [facility] Molecular Diagnostics Laboratory, which is certified under the Clinical Laboratory Improveme nt Amendments (C MARCO) as qualified to perform high complexity clinical laboratory testing. This test is validated for clinical use at [facility] and should not be [...] 01:13 PM Reporting Lab: [facility] [address] [facility] [address] Performing Lab: [facility] [address] [facility] [address] SARS-CoV-2 CLADE() 22C (OMICRON) SARS-CoV-2 LINEAGE() BA.2.12.1 Dec 06, 2021 12:00 [facility] COVID-19 AG SCREEN Specimen Type: NASAL CAVITY PM [facility] PANEL BINAX(405) Comment: Testi ng Performed By: Mike Briscoe Ordering Provid er: JELANI SÁNCHEZ Report Released Date/Time: Dec 08, 2021 08:23 AM Reporting Lab: [facility] [address] [facility] [address] Performing Lab: [facility] [address] [facility] [address] COVID-19 AG SCRN(wrj BINAX) POSITIVE HH NE G Dec 06, 2021 12:00 PM [facility] LIVER PROFILE Sp ecimen Type: PLASMA Comment: Testin g Performed on Pham Swatch Checker (405) SN:[id number] Ordering Provid er: JELANI SÁNCHEZ Report Released Date/Time: Dec 06, 2021 11:57 AM Reporting Lab: [facility] [address] [facility] [address] Performing Lab: [facility] [address] [facility] [address] PROTEIN, TOTAL 6.6 6.0-8.5 ALBUMIN 2.8 L 3.2-5.0 BILIRUBIN, TOTAL 0.6 0.2-1.2 ALKALINE PHOSPHATASE 134 40-150 ALT(SGPT) 13 7-52 AST(SGOT) 18 5-34 FIB-4 SCORE 1.94 <2.67 Dec 06, 2021 [facility] [facility] Sp ecimen Type: PLASMA Comment: Tests performed on Pham Swatch Checker (405) SN:[id number] Ordering Provid er: JELANI SÁNCHEZ Report Released Date/Time: Dec 06, 2021 11:57 AM Reporting Lab: [facility] [address] [facility] [address] Performing Lab: [facility] [address] [facility] [address] TROPONIN II 0.03 0.00-0.29 Dec 06, 2021 [facility] GLU,BUN,CREAT,LYTES,CA Speci men Type: PLASMA 12:00 PM [facility] Comment: Testin g Performed on Pham Swatch Checker (405) SN:[id number] Ordering Provid er: JELANI SÁNCHEZ Report Released Date/Time: Dec 06, 2021 11:57 AM Reporting Lab: [place] T [facility] [address] [facility] [address] Performing Lab: [facility] [address] [facility] [address] UREA NITROGEN 13 7-25 SODIUM 138 135-145 POTASSIUM 3.8 3.5-5.0 CHLORIDE 103 100-110 CARBON DIOXIDE 23 20-30 ANION GAP 12 4-16 GLUCOSE 105 H 65-100 CREATININE 0.90 0.5-1.5 CALCIUM 8.7 8.5-10.5 eGFR(CKD-EPI 2020) >90.0 >60 Dec 06, 2021 12:00 PM [facility] BNP(P) Sp ecimen Type: PLASMA Comment: Tests performed on Pham Swatch Checker (405) SN:[id number] Ordering Provid er: JELANI SÁNCHEZ Report Released Date/Time: Dec 06, 2021 11:57 AM Reporting Lab: [place] [facility] [address] [facility] [address] Performing Lab: [place] T [facility] [address] [facility] [address] BNP(P) 224.8 H 10-100 Dec 06, 2021 [place] COVID-19+FLU/RSV DIAGNOSTIC Spe cimen Type: NASOPHARYNX 12:00 PM [facility] PANEL(405) Comment: Tests performed on Salesconxxpert (405) Critical results called to and read back by: ALESHIA WILKINSON RN 12/06/21 @ 1312 Ordering Provid er: JELANI SÁNHCEZ Report Released Date/Time: Dec 06, 2021 11:57 AM Reporting Lab: [place] T [facility] [address] [facility] [address] Performing Lab: [facility] [address] [facility] [address] FLU A(PCR) NEGATIVE NEGATIVE FLU B(PCR) NEGATIVE NEGATIVE RSV(PCR) NEGATIVE NEGATIVE COVID-19([facility]) DETECTED HH NO T DETECTED Dec 06, 2021 12:[address] [facility] Sp ecimen Type: BLOOD No comment enter ed. Ordering Provid er: JELANI SÁNCHEZ Report Released Date/Time: Dec 06, 2021 11:57 AM Reporting Lab: [facility] [address] [facility] [address] Performing Lab: [facility] [address] [facility] [address] WBC 7.2 4.5-11.0 RBC 4.86 4.23-5.66 HGB [...] 0 2021 10:43 RIVER PM [facility] Dec 09, 98.2 F 82 111/58 18 /min 97 % 2021 08:31 /min mm[Hg] RIVER PM [facility] Dec 09, 98.3 F 106 113/69 18 /min 97 % WHITE 2021 02:37 /min mm[Hg] RIVER PM [facility] Dec 09, 0 2021 11:42 RIVER AM [facility] Dec 09, 97.1 F 94 120/73 16 /min 98 % 0 WHITE 2021 07:40 /min mm[Hg] [facility] [...] place. Date/Time Smoking Status/Tobacco Use Comment [facility] Apr 01, 2020 01:16 PM QUIT TOBACCO USE 1-7 YEARS AGO [facility] Mar 24, 2020 03:00 PM QUIT TOBACCO USE 1-7 YEARS AGO [facility] Feb 21, 2019 04:11 PM QUIT TOBACCO USE 1-7 YEARS AGO [facility] Feb 20, 2019 03:38 PM QUIT TOBACCO USE 1-7 YEARS AGO [facility] Feb 03, 2019 09:50 AM QUIT TOBACCO USE 1-7 YEARS AGO [facility] May 25, 2016 11:53 PM QUIT TOBACCO USE IN PAST YEAR [facility] May 23, 2016 06:57 PM QUIT TOBACCO USE > 7 YEARS AGO [facility] May 19, 2016 03:55 [...] USE IN PAST YEAR [facility] [place] [facility] Mar 16, 2016 12:50 PM V1-PT DECLINES REF TO TOBACCO [facility] [place] [facility] CESS PRGM Mar 16, 2016 [...] comes from all [place] treatment facilities. Date/Time Radiology Report Provider Source Dec 13, 2021 12:57 PM MRI ABDOMEN W/WO CONTRAST: MARYELLEN LONG LUCAS LARES N [id number] -1950 [facility] Exm Date: DEC 13, 2021@12:57 Req Phys: ISATU TODD Loc: OP Unknown/0 12-15-2021@13:20 Img Loc: MRI IMAGING (OOS) Service: [facility] MEDICINE (Case [id number] COMPLETE) MRI ABDOMEN W/WO CONTRAST (M RI Detailed) CPT:25973 Reason for Study: further characterization of a [...] new lyphadenopathy REQUESTING MD: Isatu Todd PAGER: [phone] PHONE: [phone] Weight: 232.2 lb [105.32 kg] (12/12/2021 05:00) [...] patient will need to arrange for a auto crane driver to take him/her home after the [...] 15, 2021 Date Verified: DEC 15, 2021 Perfect Binder Feeder Offbearer E-Sig:/ES/MARYELLEN LONG Report: MRI ABDOMEN W/WO CONTRAST [...] MALIGNANCY Primary Interpreting Staff: Staff AMELIA THOMAS (Perfect Binder Feeder Offbearer) / Dec 10, 2021 09:[address] ABDOMEN & PELVIS: [facility] N [id number] -1950 M SERVICE [facility] Exm Date: DEC 10, 2021@09:30 Req Phys: ISATU TODD Loc: 1S MED/12-10@10:57 Img Loc: CT SCAN (OOS) Service: [facility] (Case [id number] COMPLETE) CT ABD & PELVIS WITHOUT CONT RAST (CT Detailed) CPT:05438 Reason for Study: 71 yo male with [...] INDEX - NO HEIGHTS FOUND Pager number: [phone] STAT orders MUST be call ed to RADIOLOGY [phone] to speak to the appropriate water restoration technician. Report Status: Verified Date Reported: DEC 10, 2021 Date Verified: DEC 10, 2021 Perfect Binder Feeder Offbearer E-Sig: Report: EXAM: CT abdomen and pelvis [...] ph nodes. READING PHYSICIAN: Ramone Munoz D.O. [phone] 12/10/2021 10:55 EDT [facility] National Teleradiology Program [phone] (For Medical Practitioner Use Only ) [address] [facility], [facility] [address], [address] [place] [address] Attention Patients / Veterans: If you have ques tions or concerns about these test results, please contact your o rdering provider or primary care team. Primary Diagnostic Code: SIGNIFICANT ABNORMALIT Y, ATTN NEEDED Primary Interpreting Staff: RADIOLOGY,OUTSIDE SERVICE, Staff Physician / Dec 09, 2021 07:34 AM BASW (MODIFIED): JESSIE CHENEY [facility] LUCAS MEEK N [id number] -1950 M [facility] Exm Date: DEC 09, 2021@07:34 Req Phys: ISATU TODD Loc: 1S MED/12-09@11:26 Img Loc: XRAY (OOS) Service: [facility] MEDICINE (Case [id number] COMPLETE) BASW (MODIFIED) (RAD Detaile d) CPT:88852 Contrast Media : Barium Reason for Study: dysphagia ?esophageal spasm Clinical History: Report Status: Verified Date Reported: DEC 09, 2021 Date Verified: DEC 09, 2021 Perfect Binder Feeder Offbearer E-Sig:/ES/JESSIE CHENEY Report: DELISA (MODIFIED) , 12/09/2021 [...] REQUIRED Primary Interpreting Staff: JESSIE CHENEY, RADIOLOGIST (Perfect Binder Feeder Offbearer) /TLC Dec 06, 2021 12:[address] CHEST (INCLUDES ADRENALS): JESSIE CHENEY [facility] LUCAS MEEK N [id number] -1950 M [facility] Exm Date: DEC 06, 2021@12:59 Req Phys: JELANI SÁNCHEZ Pat Loc: [facility] ED DAYS M 1RD (Req'g Loc) Img Loc: CT SCAN (OOS) Service: Unknown (Case [id number] COMPLETE) CT THORAX W/O CONT (CT Detai led) CPT:57561 Reason for Study: Opacification right chest Clinical History: No contrast allergy BUN: 13 (12/06/21 12:00) CREATI: 0.90 (12/06/21 12:00) eGFR 05/16/21 09:43 52 L Weight: 232.6 lb [105.51 kg] (12/06/2021 11:40) BODY MASS INDEX - NO HEIGHTS FOUND Pager number: [phone] STAT orders MUST be called t o RADIOLOGY [phone] to speak to the appropriate water restoration technician. Indications - Other: Opacification right chest, covid positive, lung cancer histo Report Status: Verified Date Reported: DEC 06, 2021 Date Verified: DEC 06, 2021 Perfect Binder Feeder Offbearer E-Sig:/ES/JESSIE CHENEY Report: CT THORAX W/O CONT [...] REQUIRED Primary Interpreting Staff: JESSIE CHENEY, RADIOLOGIST (Perfect Binder Feeder Offbearer) Primary Interpreting Resident: PRINCE CHAMPION, Resident /ABBI Dec 06, 2021 11:58 AM CHEST SINGLE VIEW: JESSIE CHENEYT LUCAS MEEK N [id number] -1950 M [facility] Exm Date: DEC 06, 2021@11:58 Req Phys: JELANI SÁNCHEZ Pat Loc: [facility] ED DAYS M 1RD (Req'g Loc) Img Loc: XRAY (OOS) Service: Unknown (Case [id number] COMPLETE) CHEST SINGLE VIEW (RAD Detai led) CPT:49645 Proc Modifiers : PORTABLE EXAM Reason for Study: SOB, home covid test positive Clinical History: Report Status: Verified Date Reported: DEC 06, 2021 Date Verified: DEC 06, 2021 Perfect Binder Feeder Offbearer E-Sig:/ES/JESSIE CHENEY Report: Exam type: Chest x-ray [...] REQUIRED Primary Interpreting Staff: JESSIE CHENEY, RADIOLOGIST (Perfect Binder Feeder Offbearer) /TLC Pathology Reports: +/- 30 days of [...] AM LR SURGICAL PATHOLOGY REPORT: [facility] LOCAL TITLE: LR SURGICAL PATHOLOGY REPORT [facility] STANDARD TITLE: PATHOLOGY REPORT DATE OF NOTE: JAN 03, 2022@10:28:01 ENTRY DATE: JAN 03, 2022@10:28:01 AUTHOR: NIURKA MILLER EXP COSIGNER: URGENCY: STATUS: COMPLETED $APHDR Reporting Lab: [facility] [CLIA# [id number]] [address] [place] [address] - - - - - - [...] automatically d ocumented from SURGERY package case #[id number] Field (#32) PRINCIPAL PRE-OP DIAGNOSIS, (#.72) OTHER [...] automatically d ocumented from SURGERY package case #[id number] Field (#34) PRINCIPAL POST-OP DIAG, (#.74) OTHER [...] Label: Lucas Meek Paperwork: Lucas Meek Cassette: [id number];..;KALYANI;.;405;[id number] Specimen is labeled: ES bx Received in formalin are several pieces of pale boyd and brown tissue, 1.2 x 0.7 cm in aggregate. Submitted entirely in 1 cassette [id number];..;KALYANI;.;405;[id number] SAW 12/15/2021 Microscopic exam: *+* MODIFIED REPORT *+* (Last modified: JAN 03, 2022@09:30:20 typed by NIURKA WADDELL) DIAGNOSIS: A. 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 Kendell long. TIARA Coombs was notified on 12/21/21. Modified on 01/03/22 to include report from [facility] stating that tumor is NEGATIVE for her2/ matheus amplification. The attending pathologist who signature mansoor ears on this report has reviewed all diagnostic slides and has edited t he gross and/or microscopic portion of this report in rendering the final pathologic diagnosis. [address] [address] CPT: 33478 /emely/ NIURKA Yeung MD Signed Jan 03, 2022@10:28 Performing Laboratory: Surgical Pathology Report Performed By: CAREY MONTOYA [facility] [CLIA# [id number]] [address] [place] [address] $FTR - - - - - [...] - - LUCAS MEEK STANDARD FORM 515 ID:[id number] SEX:M :1950 AGE: 71 LOC: SDM END PCP: Isatu Todd /emely/ NIURKA MILLER Staff Signed: 01/03/2022 10:28 Dec 21, 2021 11:46 AM LR SURGICAL PATHOLOGY REPORT: [facility] LOCAL TITLE: LR SURGICAL PATHOLOGY REPORT [facility] STANDARD TITLE: PATHOLOGY REPORT DATE OF NOTE: DEC 21, 2021@11:46:59 ENTRY DATE: DEC 21, 2021@11:46:59 AUTHOR: NIURKA MILLER EXP COSIGNER: URGENCY: STATUS: COMPLETED $APHDR Reporting Lab: [facility] [CLIA# [id number]] [address] [place] [address] - - - - - - [...] automatically d ocumented from SURGERY package case #[id number] Field (#32) PRINCIPAL PRE-OP DIAGNOSIS, (#.72) OTHER [...] automatically d ocumented from SURGERY package case #[id number] Field (#34) PRINCIPAL POST-OP DIAG, (#.74) OTHER [...] Label: Lucas Meek Paperwork: Lucas Meek Cassette: [id number];..;KALYANI;.;405;[id number] Specimen is labeled: ES bx Received in formalin are several pieces of pale boyd and brown tissue, 1.2 x 0.7 cm in aggregate. Submitted entirely in 1 cassette [id number];..;KALYANI;.;405;[id number] SAW 12/15/2021 Microscopic exam: DIAGNOSIS: A. 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 Kendell long. TIARA Coombs was notified on 12/21/21. The attending pathologist who signature mansoor ears on this report has reviewed all diagnostic slides and has edited t he gross and/or microscopic portion of this report in rendering the final pathologic diagnosis. [address] [address] CPT: 37320 /emely/ NIURKA Yeung MD Signed Dec 21, 2021@11:46 Performing Laboratory: Surgical Pathology Report Performed By: [facility] [CLIA# [id number]] [address] [place] [address] $FTR - - - - - [...] - - LUCAS MEEK STANDARD FORM 515 ID:[id number] SEX:M :1950 AGE: 71 LOC: [facility] END PCP: Isatu Todd /emely/ NIURKA Yeung MD Signed: 12/21/2021 11:46 Dec 06, 2021 03:30 PM LR MICROBIOLOGY [facility]: [facility] Reporting Lab: [facility] [CLIA# [id number]] [address] [place] [address] Accession [UID]: [id number] [[id number]] Receiv ed: Dec 06, 2021@16:14 Collection sample: BLOOD CUL T BOTTLE(NIRMAL/AERO)Collection date: Dec 06, 2021 15:30 Site/Specimen: BLOOD Provider: JELANI SÁNCHEZ Comment on specimen: LAC Test(s) ordered: BLOOD CULTURE ANAEROBI C....... completed: Dec 12, 2021 06:18 * BACTERIOLOGY FINAL REPORT => Dec 12, 2021 06:1 8 TECH CODE: [id number] Bacteriology Remark(s): NO GROWTH IN 5 DAYS =--=--=--=--=--=--=--=--=--=--=--=--=--= --=--=--=--=--=--=--=--=--=--=--=--=-- Performing Laboratory: Bacteriology Report Performed By: [facility] [CLIA# [id number]] [address] [place] [address] Dec 06, 2021 03:30 PM LR MICROBIOLOGY REPORT: [facility] Reporting Lab: [facility] [CLIA# [id number]] [address] [place] [address] Accession [UID]: [id number] [[id number]] Receiv ed: Dec 06, 2021@16:14 Collection sample: BLOOD CUL T BOTTLE(NIRMAL/AERO)Collection date: Dec 06, 2021 15:30 Site/Specimen: BLOOD Provider: JELANI SÁNCHEZ Comment on specimen: LAC Test(s) ordered: BLOOD CULTURE AEROBIC. ........ completed: Dec 12, 2021 06:17 * BACTERIOLOGY FINAL REPORT => Dec 12, 2021 06:1 7 TECH CODE: [id number] Bacteriology Remark(s): NO GROWTH IN 5 DAYS =--=--=--=--=--=--=--=--=--=--=--=--=--= --=--=--=--=--=--=--=--=--=--=--=--=-- Performing Laboratory: Bacteriology Report Performed By: [facility] [CLIA# [id number]] [address] [place] [address]
--- OUTSIDE RECORDS SUMMARY | 2022-01-19 08:31 | XMS_ITS | Encounter Summary ---
:1950 Author Organization [facility] Address [address] [place] [id number] Support Name Relationship Address Phone YUSRA MEEK Unavailable [address] [place] [address] YUSRA MEEK Unavailable [address] [place] [address] CLAY MOSLEY Unavailable Unavailable SJ SANTACRUZ Unavailable [...] MEDICARE MEDICARE PART Jun 18, PART A [id number] DO KALYANI PATIENT (WNR) (M) A 2016 13A 1 UGLAS MEDICARE MEDICARE PART Jun 18, PART B [id number] DO KALYANI PATIENT (WNR) (M) B 2017 VH81 2 LAS MEDICARE MEDICARE PART Jun 18, PART B [id number] DO KALYANI PATIENT (WNR) (M) B 2016 13A 1 UGLAS MEDICARE MEDICARE PART Jun 18, PART A [id number] DO KALYANI PATIENT (WNR) (M) A 2017 VH81 2 UGLAS UNITED MEDICARE MCR(Jun [id number] Luz MEEK PATIENT HEALTHCARE ADVANTAGE NR) 2021 37 0 [facility] (WNR) Selected Encounter This section includes the information on record at [place] for the Encounter. Date/Time Encounter Type Encounter Reason Provider Source Description Dec 09, 2021 PT EVAL LOW PHYSICAL THERAPY ICD-10-CM AZK ANAND 02:35 PM COMPLEX 20 MIN U07.1 COVID-19 with Provider Comments: Covid-19 IHE Encounter Template Text not used by [facility] Assessments - Encounter Diagnoses This section includes the primary and secondary diagnoses documented for the Encounter. Date/Time Primary/Secondary Diagnosis Name Provider Source Diagnosis Dec 09, 2021 PRIMARY COVID-19 ZAK ANAND 04:17 PM [facility] Plan of Treatment: Future Appointments (+ 6 months) and Future Tests (+/- 45 days) The Plan of Treatment section includes future care activities for the patient from all [place] treatmentfacilities. This section includes future appointments and future orders which are active, pending orscheduled.Future Appointments This section includes appointments that were scheduled to occur 6 months from the date of the Encounter, up to a maximum of 20 appointments. The data comes from all [place] treatment facilities. Appointment Date/Time Appointment Type Appointment Facili ty Name Dec 21, 2021 08:00 AM AMBULATORY - N[place] [facility] Jan 06, 2022 02:00 PM [place] [facility] Jan 10, 2022 11:30 AM AMBULATORY - MEDICINE [facility] Jan 24, 2022 08:00 AM [place] - [place] [facility] Feb 21, 2022 10:00 AM AMBULATORY - SURGERY [place] [facility] Mar 21, 2022 10:30 [facility] Active, Pending, and Scheduled Orders This section includes a listing of several types of active, pending, and scheduled orders, including clinic medications orders, diagnostic test orders, procedure orders and consult orders; where the start date of the order is 45 days before the date of the Encounter or 45 days after the date of the Encounter. The data comes from all [place] treatment facilities. Test Date/Time Test Type Test Details Facility Name October 31, 2021 07:37 AM Consult Order [facility] Cons Opener T[facility] Choice November 15, 2021 10:37 AM Consult Order [facility] CARE-PODIATRY Cons [facility] Dec 06, 2021 12:52 PM Pharmacy [place] [facility] Dec 06, 2021 03:24 PM Pharmacy - [place] [facility] Dec 06, 2021 03:40 PM Pharmacy - [place] [facility] Dec 15, 2021 08:41 AM Consult Order SPEECH PATHOLOGY [place] OUTPAT[place] Cons [facility] Opener T[facility] Choice Jan 15, 2022 10:08 PM Consult Order [facility] CARE-PALLIATIVE CARE Cons [facility] Lab Results: +/- 30 days of the encounter This section includes the Chemistry and Hematology Lab Results on record with [place] for the patient. Radiology Reports and Pathology Reports are provided separately, in subsequent sections.Lab Results This section contains the Chemistry/Hematology Results that were resulted 30 days before or 30 daysafter the date of the Encounter. Date/Time Source Result Type Result - Unit Interpretation Reference Range Comment Dec 15, 2021 [place] P4 GLU,BUN,CREAT,LYTES,CA Speci men Type: PLASMA 06:43 AM [facility] Comment: Tests performed on Motivating Wellness (405) SN:[id number] Ordering Provid er: ISATU TODD Report Released Date/Time: Dec 11, 2021 07:42 AM Reporting Lab: [place] [facility] [address] [facility] [address] Performing Lab: [facility] [address] [facility] [address] UREA NITROGEN 9 7-25 SODIUM 137 135-145 POTASSIUM 3.8 3.5-5.0 CHLORIDE 105 100-110 CARBON DIOXIDE 26 20-30 ANION GAP 6 4-16 GLUCOSE 102 H 65-100 CREATININE 0.64 0.5-1.5 CALCIUM 8.1 L 8.5-10.5 eGFR(CKD-EPI 2020) >90.0 >60 Dec 15, 2021 06:43 AM [facility] CBC PROFILE Sp ecimen Type: BLOOD No comment enter ed. Ordering Provid er: ISATU TODD Report Released Date/Time: Dec 10, 2021 07:22 AM Reporting Lab: [place] [facility] [address] [facility] [address] Performing Lab: [facility] [address] [facility] [address] WBC 5.7 4.5-11.0 RBC 4.22 L 4.23-5.66 [...] ABSOLUTE NRBC 0.00 0-0 Dec 14, 2021 [place] [facility] CYTOGENETIC Specimen Type: ESOPHAGUS 02:59 PM [facility] FISH([facility]) Comment: ~For T est: CYTOGENETIC FISH([facility]) ~FISH HER 2 NUE, FFPE See full report in [facility] Image display viewer/tab#LAB-Reference Ordering Provid er: NIURKA MILLER Report Released Date/Time: Dec 21, 2021 12:11 PM Reporting Lab: [place] [facility] [address] [facility] [address] Performing Lab: [place] [facility] CYTOGENETIC FISH([facility]) comment Dec 14, 2021 06:27 AM [place] [facility] CBC PROFILE Sp ecimen Type: BLOOD No comment enter ed. Ordering Provid er: ISATU TODD Report Released Date/Time: Dec 10, 2021 07:22 AM Reporting Lab: [place] [facility] [address] [facility] [address] Performing Lab: [place] [facility] [address] [facility] [address] WBC 6.0 4.5-11.0 RBC 4.29 4.23-5.66 HGB [...] ABSOLUTE NRBC 0.00 0-0 Dec 14, 2021 [facility] P4 GLU,BUN,CREAT,LYTES,CA Speci men Type: PLASMA 06:27 AM [facility] Comment: Tests performed on Motivating Wellness (405) SN:[id number] Ordering Provid er: ISATU TODD Report Released Date/Time: Dec 11, 2021 07:42 AM Reporting Lab: [facility] [address] [facility] [address] Performing Lab: [facility] [address] [facility] [address] UREA NITROGEN 10 7-25 SODIUM 137 135-145 POTASSIUM 4.0 3.5-5.0 CHLORIDE 104 100-110 CARBON DIOXIDE 25 20-30 ANION GAP 8 4-16 GLUCOSE 99 65-100 CREATININE 0.67 0.5-1.5 CALCIUM 8.2 L 8.5-10.5 eGFR(CKD-EPI 2020) >90.0 >60 Dec 13, 2021 [place] P4 GLU,BUN,CREAT,LYTES,CA Speci men Type: PLASMA 06:34 AM [facility] Comment: Tests performed on Motivating Wellness (405) SN:[id number] Ordering Provid er: ISATU TODD Report Released Date/Time: Dec 11, 2021 07:42 AM Reporting Lab: [facility] [address] [facility] [address] Performing Lab: [facility] [address] [facility] [address] UREA NITROGEN 12 7-25 SODIUM 136 135-145 POTASSIUM 3.9 3.5-5.0 CHLORIDE 105 100-110 CARBON DIOXIDE 24 20-30 ANION GAP 7 4-16 GLUCOSE 102 H 65-100 CREATININE 0.66 0.5-1.5 CALCIUM 8.3 L 8.5-10.5 eGFR(CKD-EPI 2020) >90.0 >60 Dec 13, 2021 06:34 AM [facility] CBC PROFILE Sp ecimen Type: BLOOD No comment enter ed. Ordering Provid er: ISATU TODD Report Released Date/Time: Dec 10, 2021 07:22 AM Reporting Lab: [facility] [address] [facility] [address] Performing Lab: [facility] [address] [facility] [address] WBC 5.6 4.5-11.0 RBC 4.28 4.23-5.66 HGB [...] ABSOLUTE NRBC 0.00 0-0 Dec 12, 2021 [facility] P4 GLU,BUN,CREAT,LYTES,CA Speci men Type: PLASMA 06:21 AM [facility] Comment: Tests performed on Motivating Wellness (405) SN:[id number] Ordering Provid er: ISATU TODD Report Released Date/Time: Dec 11, 2021 07:42 AM Reporting Lab: [facility] [address] [facility] [address] Performing Lab: [facility] [address] [facility] [address] UREA NITROGEN 11 7-25 SODIUM 139 135-145 [...] Reporting Lab: [facility] [address] [facility] [address] Performing Lab: [facility] [address] [facility] [address] WBC 5.5 4.5-11.0 RBC 4.37 4.23-5.66 HGB [...] Type: PLASMA Comment: Testin g Performed on Motivating Wellness (405) SN:[id number] Ordering Provid er: ISATU TODD Report Released Date/Time: Dec 12, 2021 08:24 AM Reporting Lab: [facility] [address] [facility] [address] Performing Lab: [facility] [address] [facility] [address] MAGNESIUM 1.8 1.6-2.6 Dec 12, 2021 06:00 AM [place] [employer] [facility] PHOSPHORUS Sp ecimen Type: PLASMA Comment: Testin g Performed on Motivating Wellness (405) SN:[id number] Ordering Provid er: ISATU TODD Report Released Date/Time: Dec 12, 2021 08:24 AM Reporting Lab: [place] [employer] [facility] [address] [facility] [address] Performing Lab: [facility] [address] [facility] [address] PHOSPHORUS 3.1 2.5-5.0 Dec 11, 2021 06:15 AM [place] [facility] ELECTROLYTES Sp ecimen Type: PLASMA Comment: Tests performed on Motivating Wellness (405) SN:[id number] Ordering Provid er: ISATU TODD Report Released Date/Time: Dec 10, 2021 07:22 AM Reporting Lab: [facility] [address] [facility] [address] Performing Lab: [facility] [address] [facility] [address] SODIUM 137 135-145 POTASSIUM 4.3 3.5-5.0 CHLORIDE 108 100-110 CARBON DIOXIDE 20 20-30 ANION GAP 9 4-16 Dec 11, 2021 06:15 AM [facility] CBC PROFILE Sp ecimen Type: BLOOD Comment: Result s checked Ordering Provid er: ISATU TODD Report Released Date/Time: Dec 10, 2021 07:22 AM Reporting Lab: [facility] [address] [facility] [address] Performing Lab: [facility] [address] [facility] [address] WBC 5.8 4.5-11.0 RBC 4.37 4.23-5.66 HGB [...] 0.00 0-0 Dec 11, 2021 06:00 AM [facility] PHOSPHORUS Sp ecimen Type: PLASMA Comment: Tests performed on Motivating Wellness (405) SN:[id number] Results checked Ordering Provid er: ISATU TODD Report Released Date/Time: Dec 11, 2021 07:44 AM Reporting Lab: [place] [facility] [address] [place] [facility] [place] [address] Performing Lab: [place] [facility] [address] [place] [facility] [place] [address] PHOSPHORUS 3.0 2.5-5.0 Dec 10, 2021 08:05 AM [place] [facility] MAGNESIUM Sp ecimen Type: PLASMA Comment: [place] [id number] on Dec 10, 2021@08:31 Tests performed on Pham Analyst Business Analysis (405) SN:[id number] Ordering Provid er: ISATU TODD Report Released Date/Time: Dec 10, 2021 07:22 AM Reporting Lab: [place] [facility] [address] [place] [facility] [place] [facility] [place] [address] Performing Lab: [place] [facility] [address] [place] [facility] [place] [address] MAGNESIUM 1.7 1.6-2.6 Dec 10, 2021 08:05 AM [place] [facility] PHOSPHORUS Sp ecimen Type: PLASMA Comment: [place] [id number] on Dec 10, 2021@08:31 Tests performed on Pham Analyst Business Analysis (405) SN:[id number] Ordering Provid er: ISATU TODD Report Released Date/Time: Dec 10, 2021 07:22 AM Reporting Lab: [place] [facility] [address] [place] [facility] [place] [address] Performing Lab: [place] [facility] [address] [place] [facility] [place] [address] PHOSPHORUS 1.8 L 2.5-5.0 Dec 10, 2021 08:05 AM [place] UREA NITROGEN Specimen Type: PLASMA [facility] Comment: [place] [id number] on Dec 10, 2021@08:31 Tests performed on Motivating Wellness (405) SN:[id number] Ordering Provid er: ISATU TODD Report Released Date/Time: Dec 10, 2021 07:22 AM Reporting Lab: [place] [facility] [address] [place] [facility] [place] [facility] [place] [address] Performing Lab: [place] [facility] [address] [place] [facility] [place] [address] UREA NITROGEN 8 7-25 Dec 10, 2021 08:05 AM [place] [facility] CALCIUM Sp ecimen Type: PLASMA Comment: [place] [id number] on Dec 10, 2021@08:31 Tests performed on Motivating Wellness (405) SN:[id number] Ordering Provid er: ISATU TODD Report Released Date/Time: Dec 10, 2021 07:22 AM Reporting Lab: [place] [facility] [address] [place] [facility] [place] [address] Performing Lab: [place] [facility] [address] [facility] [address] CALCIUM 8.3 L 8.5-10.5 Dec 10, 2021 08:05 AM [place] [facility] GLUCOSE Sp ecimen Type: PLASMA Comment: [place] [id number] on Dec 10, 2021@08:31 Tests performed on Motivating Wellness (405) SN:[id number] Ordering Provid er: ISATU TODD Report Released Date/Time: Dec 10, 2021 07:22 AM Reporting Lab: [place] [facility] [address] [place] [facility] [place] [address] Performing Lab: [place] [facility] [address] [place] [facility] [place] [address] GLUCOSE 144 H 65-100 Dec 10, 2021 08:05 AM [place] [facility] ELECTROLYTES Sp ecimen Type: PLASMA Comment: [place] [id number] on Dec 10, 2021@08:31 Tests performed on Motivating Wellness (405) SN:[id number] Ordering Provid er: ISATU TODD Report Released Date/Time: Dec 10, 2021 07:22 AM Reporting Lab: [place] [facility] [address] [place] [facility] [place] [address] Performing Lab: [place] [facility] [address] [place] [facility] [place] [address] SODIUM 139 135-145 POTASSIUM 3.7 3.5-5.0 CHLORIDE 107 100-110 CARBON DIOXIDE 24 20-30 ANION GAP 8 4-16 Dec 10, 2021 08:05 [place] CREATININE WITH eGFR Specime n Type: PLASMA AM [facility] PANEL Comment: [place] [id number] on Dec 10, 2021@08:31 Tests performed on Pham WordWatch (405) SN:[id number] Ordering Provid er: ISATU TODD Report Released Date/Time: Dec 10, 2021 07:22 AM Reporting Lab: [facility] [address] [facility] [address] Performing Lab: [facility] [address] [facility] [address] CREATININE 0.78 0.5-1.5 eGFR(CKD-EPI 2020) >90.0 >60 Dec 10, 2021 08:05 AM [facility] CBC PROFILE Sp ecimen Type: BLOOD No comment enter ed. Ordering Provid er: ISATU TODD Report Released Date/Time: Dec 10, 2021 07:22 AM Reporting Lab: [facility] [address] [facility] [address] Performing Lab: [facility] [address] [facility] [address] WBC 7.0 4.5-11.0 RBC 4.54 4.23-5.66 HGB [...] 0.00 0-0 Dec 09, 2021 06:46 AM [facility] MAGNESIUM Sp ecimen Type: PLASMA Comment: Tests performed on Pham Analyst Business Analysis (405) SN:[id number] Ordering Provid er: ISATU TODD Report Released Date/Time: Dec 08, 2021 10:23 AM Reporting Lab: [facility] [address] [facility] [address] Performing Lab: [facility] [address] [facility] [address] MAGNESIUM 1.6 1.6-2.6 Dec 09, 2021 [facility] P4 GLU,BUN,CREAT,LYTES,CA Speci men Type: PLASMA 06:46 AM [facility] Comment: Tests performed on Motivating Wellness (405) SN:[id number] Ordering Provid er: ISATU TODD Report Released Date/Time: Dec 08, 2021 05:00 PM Reporting Lab: [facility] [address] [facility] [address] Performing Lab: [facility] [address] [facility] [address] UREA NITROGEN 6 L 7-25 SODIUM 134 L 135-145 POTASSIUM 3.7 3.5-5.0 CHLORIDE 103 100-110 CARBON DIOXIDE 23 20-30 ANION GAP 8 4-16 GLUCOSE 112 H 65-100 CREATININE 0.70 0.5-1.5 CALCIUM 8.1 L 8.5-10.5 eGFR(CKD-EPI 2020) >90.0 >60 Dec 09, 2021 06:46 AM [facility] CBC PROFILE Sp ecimen Type: BLOOD No comment enter ed. Ordering Provid er: ISATU TODD Report Released Date/Time: Dec 08, 2021 05:00 PM Reporting Lab: [place] [facility] [address] [facility] [address] Performing Lab: [place] [facility] [address] [facility] [address] WBC 7.1 4.5-11.0 RBC 4.40 4.23-5.66 HGB [...] 0.00 0-0 Dec 08, 2021 06:39 AM [place] [facility] MAGNESIUM Sp ecimen Type: PLASMA Comment: Testin g Performed on Pham WordWatch (405) SN:[id number] Ordering Provid er: ISATU TODD Report Released Date/Time: Dec 07, 2021 10:32 AM Reporting Lab: [facility] [address] [facility] [address] Performing Lab: [facility] [address] [facility] [address] MAGNESIUM 1.5 L 1.6-2.6 Dec 08, 2021 [place] P4 GLU,BUN,CREAT,LYTES,CA Speci men Type: PLASMA 06:39 AM [facility] Comment: Testin g Performed on Motivating Wellness (405) SN:[id number] Ordering Provid er: ISATU TODD Report Released Date/Time: Dec 07, 2021 10:32 AM Reporting Lab: [place] [facility] [address] [facility] [address] Performing Lab: [place] [facility] [address] [facility] [address] UREA NITROGEN 6 L 7-25 SODIUM 136 135-145 POTASSIUM 3.3 L 3.5-5.0 CHLORIDE 104 100-110 CARBON DIOXIDE 22 20-30 ANION GAP 10 4-16 GLUCOSE 133 H 65-100 CREATININE 0.76 0.5-1.5 CALCIUM 8.4 L 8.5-10.5 eGFR(CKD-EPI 2020) >90.0 >60 Dec 08, 2021 06:39 AM [facility] CBC PROFILE Sp ecimen Type: BLOOD No comment enter ed. Ordering Provid er: ISATU TODD Report Released Date/Time: Dec 07, 2021 10:32 AM Reporting Lab: [facility] [address] [facility] [address] Performing Lab: [facility] [address] [facility] [address] WBC 8.4 4.5-11.0 RBC 4.75 4.23-5.66 HGB [...] 0.00 0-0 Dec 07, 2021 06:42 [facility] Specimen Typ e: PLASMA AM [facility] Comment: Tests performed on Motivating Wellness (405 SN:[id number] Ordering Provid er: PORFIRIO WALTERS Report Released Date/Time: Dec 06, 2021 06:57 PM Reporting Lab: [facility] [address] [facility] [address] Performing Lab: [facility] [address] [facility] [address] PROTEIN, TOTAL 5.7 L 6.0-8.5 ALBUMIN 2.4 L 3.2-5.0 BILIRUBIN, TOTAL 0.4 0.2-1.2 ALKALINE PHOSPHATASE 109 40-150 ALT(SGPT) 10 7-52 AST(SGOT) 15 5-34 FIB-4 SCORE 1.92 <2.67 Dec 07, 2021 [facility] P4 GLU,BUN,CREAT,LYTES,CA Speci men Type: PLASMA 06:42 AM [facility] Comment: Tests performed on Motivating Wellness (405) SN:[id number] Ordering Provid er: PORFIRIO WALTERS Report Released Date/Time: Dec 06, 2021 06:57 PM Reporting Lab: [facility] [address] [facility] [address] Performing [facility]: [facility] [address] [facility] [address] UREA NITROGEN 9 7-25 SODIUM 135 135-145 POTASSIUM 3.5 3.5-5.0 CHLORIDE 103 100-110 CARBON DIOXIDE 22 20-30 ANION GAP 10 4-16 GLUCOSE 92 65-100 CREATININE 0.73 0.5-1.5 CALCIUM 8.0 L 8.5-10.5 eGFR(CKD-EPI 2020) >90.0 >60 Dec 07, 2021 06:42 AM [facility] CBC PROFILE Specimen Type: BLOOD [facility] No comment enter ed. Ordering Provid er: PORFIRIO WALTERS Report Released Date/Time: Dec 06, 2021 06:57 PM Reporting Lab: [facility] [address] [facility] [address] Performing Lab: [facility] [address] [facility] [address] WBC 5.7 4.5-11.0 RBC 4.15 L 4.23-5.66 [...] [facility]AM[facility] %) AUTOMATED Comment: Tests performed on Motivating Wellness (405) SN:[id number] Ordering Provid er: ISATU TODD Report Released Date/Time: Dec 07, 2021 10:28 AM Reporting Lab: [place] [facility] [address] [facility] [address] Performing Lab: [place] [facility] [address] [facility] [address] RETICULOCYTES (%) AUTOMATED 1.23 0. 6-2.0 RETICULOCYTES (ABS) AUTOMATED 0.052 0.030-0.090 Dec 06, 2021 09:45 [place] MRSA SURVL NARES Specimen Ty pe: NARES PM [facility] DNA No comment enter ed. Ordering Provid er: ALVARO VARGHESE Report Released Date/Time: Dec 07, 2021 02:20 AM Reporting Lab: [place] [facility] [address] [facility] [address] Performing Lab: [place] [facility] [address] [facility] [address] MRSA SURVL NARES DNA NEGATIVE NEGATIVE Dec 06, 2021 06:00 [place] URINALYSIS W/REFLEX TO Speci men Type: URINE PM [facility] CULTURE No comment enter ed. Ordering Provid er: JELANI SÁNCHEZ Report Released Date/Time: Dec 06, 2021 11:57 AM Reporting Lab: [facility] [address] [facility] [address] Performing Lab: [facility] [address] [facility] [address] URINE COLOR Arlin YELLOW SPECIFIC GRAVITY 1.029 [...] 21, [place] Comment: https://www.cdc.gov/coronavirus/2019-ncov/cases-updates/variant- surveillance/variant-info.html The Hepregen SARS CoV 2 [employer] Research Assay-GX is a next-generation sequencing (NGS) assa 2021 [facility] SEQUENCING y that determine s the complete genome sequence of the SARS-CoV-2 virus. The assay contains variant-tolerant primers to broaden and improve the coverage for variant detection and increase the sensitivity 12:00 [facility] PNL() of the panel to enable detection from lower viral titer samples. The assay is run on the [employer] Sequencer, which performs automated library preparation, sequencing, analysis, and reporting. PM The sequence an alysis includes determination of viral phylogenetic lineage by comparison to the reference strain [place]-Hu-1, GenBank: [id number]. Sequence determination may not be possible owing [...] Dec 06, 2021 01:13 PM Reporting Lab: [facility] [address] [facility] [address] Performing Lab: [facility] [address] [facility] [address] SARS-CoV-2 CLADE() 22C (OMICRON) SARS-CoV-2 LINEAGE() [id number] Dec 06, 2021 12:00 [facility] COVID-19 AG SCREEN Specimen Type: NASAL CAVITY PM [facility] PANEL BINAX(405) Comment: Testi ng Performed By: Mike Briscoe Ordering Provid er: JELANI SÁNCHEZ Report Released Date/Time: Dec 08, 2021 08:23 AM Reporting Lab: [facility] [address] [facility] [address] Performing Lab: [facility] [address] [facility] [address] COVID-19 AG SCRN(j BINAX) POSITIVE HH NE G Dec 06, 2021 [facility] P[facility] GLU,BUN,CREAT,LYTES,CA Speci men Type: PLASMA 12:00 PM [facility] Comment: Testin g Performed on [employer] Business Analysis (405) [id number] Ordering Provid er: JELANI SÁNCHEZ Report Released Date/Time: Dec 06, 2021 11:57 AM Reporting Lab: [facility] [address] [facility] [address] Performing Lab: [facility] [address] [facility] [address] UREA NITROGEN 13 7-25 SODIUM 138 135-145 POTASSIUM 3.8 3.5-5.0 CHLORIDE 103 100-110 CARBON DIOXIDE 23 20-30 ANION GAP 12 4-16 GLUCOSE 105 H 65-100 CREATININE 0.90 0.5-1.5 CALCIUM 8.7 8.5-10.5 eGFR(CKD-EPI 2020) >90.0 >60 Dec 06, 2021 12:00 PM [facility] TROPONIN II Sp ecimen Type: PLASMA Comment: Tests performed on Motivating Wellness (405) SN:[id number] Ordering Provid er: JELANI SÁNCHEZ Report Released Date/Time: Dec 06, 2021 11:57 AM Reporting [facility] [address] [facility] [address] Performing Lab: [facility] [address] [facility] [address] TROPONIN II 0.03 0.00-0.29 Dec 06, 2021 12:00 PM [facility] BNP(P) Sp ecimen Type: PLASMA Comment: Tests performed on Pham WordWatch (405) SN:[id number] Ordering Provid er: JELANI SÁNCHEZ Report Released Date/Time: Dec 06, 2021 11:57 AM Reporting Lab: [facility] [address] [facility] [address] Performing Lab: [facility] [address] [facility] [address] BNP(P) 224.8 H 10-100 Dec 06, 2021 12:00 PM [facility] LIVER PROFILE Sp ecimen Type: PLASMA Comment: Testin g Performed on Pham Analyst Business Analysis (405) SN:[id number] Ordering Provid er: JELANI SÁNCHEZ Report Released Date/Time: Dec 06, 2021 11:57 AM Reporting Lab: [facility] [address] [facility] [address] Performing Lab: [facility] [address] [facility] [address] PROTEIN, TOTAL 6.6 6.0-8.5 ALBUMIN 2.8 L 3.2-5.0 BILIRUBIN, TOTAL 0.6 0.2-1.2 ALKALINE PHOSPHATASE 134 40-150 ALT(SGPT) 13 7-52 AST(SGOT) 18 5-34 FIB-4 SCORE 1.94 <2.67 Dec 06, 2021 [facility] COVID-19+FLU/RSV DIAGNOSTIC Spe cimen Type: NASOPHARYNX 12:00 PM [facility] PANEL(405) Comment: Tests performed on Corepair Genexpert (405) Critical results called to and read back by: ALESHIA WILKINSON RN 12/06/21 @ 1312 Ordering Provid er: JELANI SÁNCHEZ Report Released Date/Time: Dec 06, 2021 11:57 AM Reporting Lab: [facility] [address] [facility] [address] Performing Lab: [facility] [address] [facility] [address] FLU A(PCR) NEGATIVE NEGATIVE FLU B(PCR) NEGATIVE NEGATIVE RSV(PCR) NEGATIVE NEGATIVE COVID-19(MNB-cux-IRGTHICZX) DETECTED HH NO T DETECTED Dec 06, 2021 12:00 PM [place] [facility] CBC PROFILE Sp ecimen Type: BLOOD No comment enter ed. Ordering Provid er: JELANI SÁNCHEZ Report Released Date/Time: Dec 06, 2021 11:57 AM Reporting Lab: [facility] [address] [facility] [address] Performing Lab: [facility] [address] [facility] [address] WBC 7.2 4.5-11.0 RBC 4.86 4.23-5.66 HGB [...] Source Pressure Rate Mass Index Dec 09, MCGUFF[place] 2021 10:43 RIVER PM T [facility] Dec 09, 98.2 F 82 111/58 18 /min 97 % WHITE 2021 08:31 /min mm[Hg] RIVER PM T [facility] Dec 09, 98.3 F 106 113/69 18 /min 97 % WHITE 2021 02:37 /min mm[Hg] RIVER PM [facility] Dec 09, 0 MCGUFFEY 2021 11:42 RIVER AM [facility] Dec 09, 97.1 F 94 120/73 16 /min 98 % 0 [place]CGUFF[place] 2021 07:40 /min mm[Hg] RIVER AM [facility] Social History: Smoking Status (Most current) and Tobacco Use (All prior to encounter date) This section includes the most current, and the historical, smoking and tobacco-related health factors from the [facility] facility where the Encounter took place.Current Smoking Status This section includes the most current smoking, or tobacco-related health factor, from the [facility] facility where the Encounter took place. Date/Time Current Smoking Status Comment Facility Dec 06, 2021 11:40 AM QUIT TOBACCO USE > 7 YEARS AGO [facility] Tobacco Use History This section includes a history of the smoking, or tobacco- related health factors, that were collected on or before the date of the Encounter. The data comes from the [place] facility where the Encounter took place. Date/Time [...] USE IN PAST YEAR [facility] DO[facility] [place] [facility] May 23, 2016 06:57 PM QUIT TOBACCO USE > 7 YEARS AGO CAREY DOYLE [facility] May 19, 2016 03:55 PM QUIT TOBACCO USE IN PAST YEAR CAREY DOYLE [facility] May 19, 2016 10:29 AM QUIT TOBACCO USE 1-7 YEARS AGO CAREY DOYLE [facility] May 01, 2016 07:26 PM QUIT TOBACCO USE IN PAST YEAR CAREY DOYLE [facility] May 01, 2016 03:11 PM QUIT TOBACCO USE IN PAST YEAR CAREY DOYLE [facility] May 01, 2016 11:19 AM QUIT TOBACCO USE IN PAST YEAR CAREY DOYLE [facility] Mar 16, 2016 12:50 PM V1-PT DECLINES REF TO TOBACCO CAREY DOYLE [facility] CESS PRGM Mar 16, 2016 12:50 PM V1-PT THINKING ABOUT QUIT CAREY DOYLE [facility] TOBACCO USE Aug 12, 2015 08:48 AM CURRENT SMOKER CAREY Yates [facility] Radiology Reports: +/- 30 days of [...] from all [facility] facilities. Date/Time Radiology Report Provider Source Dec 13, 2021 12:57 PM MRI ABDOMEN W/WO CONTRAST: MARYELLEN LONG LUCAS LARES N [id number] -1950 [facility] Exm Date: DEC 13, 2021@12:57 Req Phys: ISATU TODD Loc: OP Unknown/0 12-15-2021@13:20 Img Loc: MRI IMAGING (OOS) Service: [facility] (Case [id number] COMPLETE) MRI ABDOMEN W/WO CONTRAST (M RI Detailed) CPT:38079 Reason for Study: further characterization of a [...] new lyphadenopathy REQUESTING MD: Isatu Todd PAGER: [phone] PHONE: [phone] Weight: 232.2 lb [105.32 kg] (12/12/2021 05:00) [...] patient will need to arrange for a trash collector 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 to take him/her home after [...] 15, 2021 Date Verified: DEC 15, 2021 Uniform Cap Operator E-Sig:/ES/MARYELLEN LONG Report: MRI ABDOMEN W/WO [...] MALIGNANCY Primary Interpreting Staff: Staff AMELIA THOMAS (Uniform Cap Operator) / Dec 10, 2021 09:[address] ABDOMEN & PELVIS: RADIOLOGY,OUTSIDE [facility] LINDSAY LUCAS MEEK N [id number] -1950 [facility] Ex Date: DEC 10, 2021@09:30 Req Phys: ISATU TODD Loc: 1S MED/12-10@10:57 [facility] Loc: CT SCAN (OOS) Service: [facility] (Case [id number] COMPLETE) CT ABD & PELVIS WITHOUT CONT RAST (CT Detailed) CPT:23673 Reason for Study: 71 yo male with [...] RADIOLOGY [phone] to speak to the appropriate archives technician. Report Status: Verified Date Reported: DEC 10, 2021 Date Verified: DEC 10, 2021 Uniform Cap Operator E-Sig: Report: EXAM: CT abdomen and [...] ph nodes. READING PHYSICIAN: Ramone Munoz D.O. [phone] 12/10/2021 10:55 EDT [facility] Cuil Program [phone] (For Medical Practitioner Use Only ) [address] [place] [address], [facility] [address], [address] [place] [address] Attention Patients / Veterans: If you have ques tions or concerns about these test results, please contact [facility] or primary care team. Primary Diagnostic Code: SIGNIFICANT ABNORMALIT Y, ATTN NEEDED Primary Interpreting Staff: RADIOLOGY,OUTSIDE SERVICE, Staff Physician / Dec 09, 2021 07:34 AM BASW (MODIFIED): [facility]ENEY [facility] N [id number] -1950 [facility] Ex[facility] Date: DEC 09, 2021@07:34 Req Phys: ISATU TODD E Pat Loc: 1S MED/12-09@11:26 Img Loc: XRAY (OOS) Service: [facility] MEDICINE (Case [id number] COMPLETE) BASW (MODIFIED) (EUNICE stephenson) CPT:83833 Contrast Media : Barium Reason for Study: dysphagia ?esophageal spasm Clinical History: Report Status: Verified Date Reported: DEC 09, 2021 Date Verified: DEC 09, 2021 Uniform Cap Operator E-Sig:/ES/JESSIE CHENEY Report: BASW (MODIFIED) , 12/09/2021 [...] REQUIRED Primary Interpreting Staff: JESSIE CHENEY, RADIOLOGIST (Uniform Cap Operator) /TLC Dec 06, 2021 12:[address] CHEST (INCLUDES ADRENALS): [facility] N [id number] -1950 M [facility] Exm Date: DEC 06, 2021@12:59 Req Phys: JELANI SÁNCHEZ Pat Loc: [facility] ED DAYS M 1RD (Req'g Loc) Img Loc: CT SCAN (OOS) Service: Unknown (Case [id number] COMPLETE) CT THORAX W/O CONT (CT Detai led) CPT:50138 Reason for Study: Opacification right chest Clinical History: No contrast allergy BUN: 13 (12/06/21 12:00) CREATI: 0.90 (12/06/21 12:00) eGFR 05/16/21 09:43 52 L Weight: 232.6 lb [105.51 kg] (12/06/2021 11:40) BODY MASS INDEX - NO HEIGHTS FOUND Pager number: [phone] STAT orders MUST be called t o RADIOLOGY [phone] to speak to the appropriate archives technician. Indications - Other: Opacification right chest, covid positive, lung cancer histo Report Status: Verified Date Reported: DEC 06, 2021 Date Verified: DEC 06, 2021 Uniform Cap Operator E-Sig:/ES/JESSIE CHENEY Report: CT THORAX W/O [...] REQUIRED Primary Interpreting Staff: JESSIE CHENEY, RADIOLOGIST (Uniform Cap Operator) Primary Interpreting Resident: PRINCE CHAMPION, Resident /BR Dec 06, 2021 11:58 AM CHEST SINGLE VIEW: JESSIE CHENEY LUCAS MEEK N [id number] -1950 M [facility] Exm Date: DEC 06, 2021@11:58 Req Phys: JELANI SÁNCHEZ Pat Loc: [facility] ED DAYS M 1RD (Req'g Loc) Img Loc: XRAY (OOS) Service: Unknown (Case [id number] COMPLETE) CHEST SINGLE VIEW (RAD Detai led) CPT:30855 Proc Modifiers : PORTABLE EXAM Reason for Study: SOB, home covid test positive Clinical History: Report Status: Verified Date Reported: DEC 06, 2021 Date Verified: DEC 06, 2021 Uniform Cap Operator E-Sig:/ES/JESSIE CHENEY Report: Exam type: Chest [...] REQUIRED Primary Interpreting Staff: JESSIE CHENEY, RADIOLOGIST (Uniform Cap Operator) /TLC Pathology Reports: +/- 30 days [...] the Encounter. The data comes from all MS treatment facilities. Date/Time Pathology Report Provider Source Jan 03, 2022 10:28 AM LR SURGICAL PATHOLOGY REPORT: STEFANY MILLER MCGUFFEY VIVEK MONTOYA LOCAL TITLE: LR SURGICAL PATHOLOGY REPORT [facility] STANDARD TITLE: PATHOLOGY REPORT DATE OF NOTE: JAN 03, 2022@10:28:01 ENTRY DATE: JAN 03, 2022@10:28:01 AUTHOR: NIURKA MILLER COSIGNER: URGENCY: STATUS: COMPLETED $APHDR Reporting Lab: [facility] [place] [facility] [CLIA# [id number]] [address] [place] [address] - - - - - - [...] automatically d ocumented from SURGERY package case #[id number] Field (#32) PRINCIPAL PRE-OP DIAGNOSIS, (#.72) OTHER [...] automatically d ocumented from SURGERY package case #[id number] Field (#34) PRINCIPAL POST-OP DIAG, (#.74) OTHER [...] Label: Lucas Meek Paperwork: Lucas Meek Cassette: [id number];..;KALYANI;.;405;[id number] Specimen is labeled: ES bx Received in formalin are several pieces of pale boyd and brown tissue, 1.2 x 0.7 cm in aggregate. Submitted entirely in 1 cassette [id number];..;KALYANI;.;405;[id number] SAW 12/15/2021 Microscopic exam: *+* MODIFIED REPORT *+* (Last modified: JAN 03, 2022@09:30:20 typed by NIURKA WADDELL) DIAGNOSIS: A. 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 Kendell long. TIARA Coombs was notified on 12/21/21. Modified on 01/03/22 to include report from [facility] stating that tumor is NEGATIVE for her2/ matheus amplification. The attending pathologist who signature mansoor ears on this report has reviewed all diagnostic slides and has edited t he gross and/or microscopic portion of this report in rendering the final pathologic diagnosis. [address] [address] CPT: 15238 /emely/ NIURKA Yeung MD Signed Jan 03, 2022@10:28 Performing Laboratory: Surgical Pathology Report Performed By: [facility] [CLIA# [id number]] [address] [place] [address] $FTR - - - - - [...] - - LUCAS MEEK STANDARD FORM 515 ID:[id number] SEX:M :1950 AGE: 71 LOC: SDM END PCP: Isatu Todd /emely/ NIURKA Yeung MD Signed: 01/03/2022 10:28 Dec 21, 2021 11:46 AM LR SURGICAL PATHOLOGY REPORT: STEFANY MILLER [facility] LOCAL TITLE: LR SURGICAL PATHOLOGY REPORT [facility] STANDARD TITLE: PATHOLOGY REPORT DATE OF NOTE: DEC 21, 2021@11:46:59 ENTRY DATE: DEC 21, 2021@11:46:59 AUTHOR: NIURKA MILLER EXP COSIGNER: URGENCY: STATUS: COMPLETED $APHDR Reporting Lab: [facility] [CLIA# [id number]] [address] [place] [address] - - - - - - [...] automatically d ocumented from SURGERY package case #[id number] Field (#32) PRINCIPAL PRE-OP DIAGNOSIS, (#.72) OTHER [...] automatically d ocumented from SURGERY package case #[id number] Field (#34) PRINCIPAL POST-OP DIAG, (#.74) OTHER [...] - - - GROSS DESCRIPTION: Name Label: MeekPierreLucas N Paperwork: MeekLucas Lei Cassette: [id number];..;KALYANI;.;969;[id number] Specimen is labeled: ES bx Received in formalin are several pieces of pale boyd and brown tissue, 1.2 x 0.7 cm in aggregate. Submitted entirely in 1 cassette [id number];..;MEEK;.;405;[id number] SAW 12/15/2021 Microscopic exam: DIAGNOSIS: A. 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 Kendell long. TIARA Coombs was notified on 12/21/21. The attending pathologist who signature mansoor ears on this report has reviewed all diagnostic slides and has edited t he gross and/or microscopic portion of this report in rendering the final pathologic diagnosis. [address] [address] CPT: 70040 /emely/ NIURKA Yeung MD Signed Dec 21, 2021@11:46 Performing Laboratory: Surgical Pathology Report Performed By: [facility] [CLIA# [id number]] [address] [place] [address] $FTR - - - - - [...] - - LUCAS MEEK STANDARD FORM 515 ID:[id number] SEX:M :1950 AGE: 71 LOC: SDM END PCP: Isatu Todd /emely/ NIURKA Yeung MD Signed: 12/21/2021 11:46 Dec 06, 2021 03:30 PM LR MICROBIOLOGY REPORT: [facility] Reporting Lab: [facility] [CLIA# [id number]] [address] [place] [address] Accession [UID]: [id number] [[id number]] Receiv ed: Dec 06, 2021@16:14 Collection sample: BLOOD CUL T BOTTLE(NIRMAL/AERO)Collection date: Dec 06, 2021 15:30 Site/Specimen: BLOOD Provider: JELANI SÁNCHEZ Comment on specimen: LAC Test(s) ordered: BLOOD CULTURE ANAEROBI C....... completed: Dec 12, 2021 06:18 * BACTERIOLOGY FINAL REPORT => Dec 12, 2021 06:1 8 TECH CODE: [id number] Bacteriology Remark(s): NO GROWTH IN 5 DAYS =--=--=--=--=--=--=--=--=--=--=--=--=--= --=--=--=--=--=--=--=--=--=--=--=--=-- Performing Laboratory: Bacteriology Report Performed By: [facility] [CLIA# [id number]] [address] [place] [address] Dec 06, 2021 03:30 PM LR MICROBIOLOGY REPORT: [facility] Reporting Lab: [facility] [CLIA# [id number]] [address] [place] [address] Accession [UID]: [id number] [[id number]] Receiv ed: Dec 06, 2021@16:14 Collection sample: BLOOD CUL T BOTTLE(NIRMAL/AERO)Collection date: Dec 06, 2021 15:30 Site/Specimen: BLOOD Provider: JELANI SÁNCHEZ Comment on specimen: LAC Test(s) ordered: BLOOD CULTURE AEROBIC. ........ completed: Dec 12, 2021 06:17 * BACTERIOLOGY FINAL REPORT => Dec 12, 2021 06:1 7 TECH CODE: [id number] Bacteriology Remark(s): NO GROWTH IN 5 DAYS =--=--=--=--=--=--=--=--=--=--=--=--=--= --=--=--=--=--=--=--=--=--=--=--=--=-- Performing Laboratory: Bacteriology Report Performed By: CAREY MONTOYA [facility] [CLIA# [id number]] [address] [place] [address] Encounter Notes: All associated encounter notes This section contains the clinical notes associated to the Encounter. Date/Time Encounter Note(s) Provider Source Dec 09, 2021 04:03 PHYSICAL THERAPY INPATIENT CONSULT: MIGUEL ANAND [facility]AL T[facility] PHYSICAL THERAPY INPATIENT CONSU LT DATE OF NOTE: DEC 09, 2021@16:03 ENTRY DATE: DEC 09, 2021@16:03:57 AUTHOR: ZAK ANAND EXP COSIGNER: URGENCY: STATUS: COMPLETED Mr. Lucas Meek is a 71 year old MALE with a history of Stage IIIa adenocarcinoma EGFR/ALK negative s/p chemotherap y/radiation/dervalumab, COPD, diverticulitis s/p partial colonic resection, ch ronic low back pain s/p discectomy admitted 12/06/21 for a 6 month histor y of 70 pound unintentional weight loss, fatigue, weakness, anorexia, odynop hagia, myalgias, intermittent diarrhea and general malaise alongside a 10 day history acutely of increased sputum production, SOB, and recent COVID+ test o n home kit after recent sick contact exposure( had COVID+). Referred by PORFIRIO WALTERS for Assess for re turn to home or rehab placement. PMH: Former smoker (SCT 0857320) Primary squamous patti l carcinoma of skin of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 (SCT 0406407653935091) Osteoarthritis (SCT 929038985) Psoriasis (SCT 90 [address]3531) Spinal stenosis of lumbar region (SCT 18Low back pain (SCT 720563512) Joint pain (SCT 74229708) Primary malignant neop lasm of lung (SCT 47865977) Morbid obesity (SCT 564086585) Benign essential hypertension (SCT 8189277) Chronic obstructive lung disease (SCT 13 MEDICATIONS: Active Inpatient Medications (excluding Supplies ): Active [...] 13) SERTRALINE TAB 150MG PO QD ACTIVE SOCIAL: Resides with in a home with 7+1 stairs to enter, although the one lone step into the house is high, so he purchase d a small stepstool to use on the way up. CLINICAL REHAB SPECIALIST: Modified independent ambulation with cane f or short distances as he reports back pain with standing or walking. MS: Alert and oriented x 3. EQUIPMENT: Single point cane. CHIEF COMPLAINT: I had a touch of polio. C/o b ack pain with standing or walking after short period of time. PATIENT'S GOALS: Breath better, return home. POSTURE/APPEARANCE: Gentleman received resting i n bed on med-surg unit with Khai engaged, in no apparent distress, with L> R genu valgus. SKIN: Scars noted at abdomen, R knee (replacemen t), and L forearm, and he reports also having had surgery at chest and emiliano k. Otherwise skin intact. SENSATION: Tests intact to light touch with incr eased tenderness and sensitivity B ankles and feet. PAIN: Tenderness at feet with strength testing. FUNCTIONAL STATUS--Declines functional activity due to impending low back pain. BED MOBILITY: TRANSFERS: FOUR STAGE BALANCE TEST: fall risk -Heels together: 10 sec, unable -Heels together eyes closed: 10 sec, unable -One foot in instep of the other: R 10 sec, L 10 sec, unable -Tandem: R 10 sec, L 10 sec, unable -Single leg stance: R 10 sec, L 10 sec, unable AMBULATION: GAIT PATTERN: DUAL TASKING: Maintains bianca Maintains path -Listing days of the week backward -Counting backward from 23 by 2s -Head movements up and down -Head movements side to side STAIRS: ROM: Decreased R ankle dorsiflexion. STRENGTH/MUSCLE STATUS: Demonstrates active stra ight leg raise vs. gravity L LE, however R LE with substitution of nontarget muscles and very limited ROM. Ankle dorsiflexion tests 4/5 L and 5/5 in availa ble ROM R. Hip and knee extension tests 3/5 and dyscoordinated R LE and 5/5 L LE. TONE: Altered R LE somewhat. COORDINATION: Decreased R LE. ASSESSMENT/REHAB POTENTIAL: Mr. Lucas Meek i s a 71 year old MALE with a history of Stage IIIa adenocarcinoma EGFR /ALK negative s/p chemotherapy/radiation/dervalumab, COPD, diverti culitis s/p partial colonic resection, chronic low back pain s/p dis cectomy admitted 12/06/21 for a 6 month history of 70 pound unintentional weight loss, f atigue, weakness, anorexia, odynophagia, myalgias, inter mittent diarrhea and general malaise alongside a 10 day history acutely of incre ased sputum production, SOB, and recent COVID+ test on home kit after recent sick contact exposure(w lilli had COVID+). Presents to PT with impaired mobility, i ncreased fall risk, decreased strength and ROM, pain, good home support, and kodak ectural barrier of 7+2 stairs to enter their home. Recommended discharge disposition ho me with services. P.T. GOALS: 1) independent exercise program; 2) modified independent bed mobility and transf ers; 3) modified independent ambulation with 2 wheel ed walker x 75'; 4) modified independent up and down 4 stairs wi th rail; in 2 days. PLAN: PT to follow as the [place] allows for str ength and mobility training with recommended discharge disposition home with services. RECOMMENDATIONS: Out of bed to chair for all damaso ls. Time in/out: 2:37-2:53 16 minutes 13579 Evaluation 16 minutes /es/ ZAK ANAND Doctor of Physical Therapy licensed in [place], [place] Signed: 12/09/2021 16:17
--- OUTSIDE RECORDS SUMMARY | 2022-01-19 08:31 | XMS_ITS | Encounter Summary ---
:1950 Author Organization [facility] Address [address] [place] [id number] Support Name Relationship Address Phone YUSRA MEEK Unavailable [address] [place] [facility] [place] [address] YUSRA MEEK Unavailable [address] [place] [facility] [place] [address] CLAY MOSLEY Unavailable Unavailable SJ SANTACRUZ Unavailable [...] MEDICARE MEDICARE PART Jun 18, PART A [id number] DO FANTASMA PATIENT (WNR) (M) A 2016 13A 1 UGLAS MEDICARE MEDICARE PART Jun 18, PART A [id number] FANTASM[place]O PATIENT (WNR) (M) A 2017 VH81 2 UGLAS MEDICARE MEDICARE PART Jun 18, PART B [id number] DO FANTASMA PATIENT (WNR) (M) B 2016 13A 1 UGLAS MEDICARE MEDICARE PART Jun 18, PART B [id number] FANTASMADO PATIENT (WNR) (M) B 2017 VH81 2 LAS UNITED MEDICARE MCR(Jun [id number] Luz MEEK PATIENT HEALTHCARE ADVANTAGE NR) 2021 37 0 [facility] (WNR) Selected Encounter This section includes the information on record at [facility] for the Encounter. Date/Time Encounter Type Encounter Reason Provider Source Description Dec 09, 2021 ORAL FUNCTION SPEECH-LANGUAGE ICD-10-CM R13.12 ROSENDO HERNANDEZ 08:15 AM THERAPY PATHOLOGY Dysphagia, YELLEN oropharyngeal phase with Provider Comments: Dysphagia, oropharyngeal phase IHE Encounter Template Text not used by [facility] Assessments - Encounter Diagnoses This section includes the primary and secondary diagnoses documented for the Encounter. Date/Time Primary/Secondary Diagnosis Name Provider Source Diagnosis Jan 15, 2022 PRIMARY DysphagiaJAVIER MAR [place] 02:02 PM oropharyngeal phase [facility] Jan 15, 2022 SECONDARY DysphagiaJAVIER MAR [place] 02:02 PM pharyngoesophageal [facility] Plan of Treatment: Future Appointments (+ 6 months) and Future Tests (+/- 45 days) The Plan of Treatment section includes future care activities for the patient from all [facility] treatmentfacilities. This section includes future appointments and future orders which are active, pending orscheduled.Future Appointments This section includes appointments that were scheduled to occur 6 months from the date of the Encounter, up to a maximum of 20 appointments. The data comes from all [facility] treatment facilities. Appointment Date/Time Appointment Type Appointment Facili ty Name Dec 21, 2021 08:00 AM AMBULATORY - NONE [facility] Jan 06, 2022 02:00 PM AMBULATORY - REHAB MEDICINE [facility] Yates [facility] Jan 10, 2022 11:30 AM AM[facility]ATORY - MEDICINE [facility] Jan 24, 2022 08:00 AM AMBULATORY - REHAB MEDICINE [facility] DAYDAY R [facility] Feb 21, 2022 10:00 AM [facility] Mar 21, 2022 10:30 AM AMBULATORY [...] the Encounter. The data comes from all [facility] treatment [facility]. Test Date/Time Test Type Test Details Facility Name October 31, 2021 07:37 AM Consult Order [facility] Cons Visual Communications Instructor's Choice November 15, 2021 10:37 AM Consult Order [facility] CARE-PODIATRY Cons Visual Communications Instructor's Choice Dec 06, 2021 12:52 PM Pharmacy - [place]fusion [facility] Dec 06, 2021 03:24 PM Pharmacy - [place] [facility] Dec 06, 2021 03:40 PM Pharmacy - [place] [facility] Dec 15, 2021 08:41 AM Consult Order SPEECH PATHOLOGY [place] OUTPATIENT Cons [facility] Visual Communications Instructor's Choice Jan 15, 2022 10:08 PM Consult Order [facility] CARE-PALLIATIVE CARE Cons Visual Communications Instructor's Choice Lab Results: +/- 30 days of [...] Interpretation Reference Range Comment Dec 15, 2021 [facility] GLU,BUN,CREAT,LYTES,CA Speci men Type: PLASMA 06:43 AM [facility] Comment: Tests performed on V[employer] Technology (405) SN:[id number] Ordering Provid er: ASHLY TODD Report Released Date/Time: Dec 11, 2021 07:42 AM Reporting Lab: [facility] T [facility] [address] [facility] [address] Performing Lab: [place] [facility] [address] [facility] [address] UREA NITROGEN 9 7-25 SODIUM 137 135-145 POTASSIUM 3.8 3.5-5.0 CHLORIDE 105 100-110 CARBON DIOXIDE 26 20-30 ANION GAP 6 4-16 GLUCOSE 102 H 65-100 CREATININE 0.64 0.5-1.5 CALCIUM 8.1 L 8.5-10.5 eGFR(CKD-EPI 2020) >90.0 >60 Dec 15, 2021 06:43 AM [place] [facility] CBC PROFILE Sp ecimen Type: BLOOD No comment enter ed. Ordering Provid er: ASHLY TODD Report Released Date/Time: Dec 10, 2021 07:22 AM Reporting Lab: [place] [facility] [address] [facility] [address] Performing Lab: [facility] [address] [facility] [address] WBC 5.7 4.5-11.0 RBC 4.22 L 4.23-5.66 [...] ABSOLUTE NRBC 0.00 0-0 Dec 14, 2021 [facility] CYTOGENETIC Specimen Type: ESOPHAGUS 02:59 PM [facility] FISH([facility] Comment: ~For T est: CYTOGENETIC FISH([facility]) ~FISH HER 2 NUE, FFPE See full report in Tynt Image display viewer/tab#LAB-Reference Ordering Provid er: NIURKA MILLER Report Released Date/Time: Dec 21, 2021 12:11 PM Reporting Lab: [facility] [address] [facility] [address] Performing Lab: [facility] CYTOGENETIC FISH([facility]) comment Dec 14, 2021 [facility] P4 GLU,BUN,CREAT,LYTES,CA Speci men Type: PLASMA 06:27 AM [facility] Comment: Tests performed on V[employer] Technology (405) SN:[id number] Ordering Provid er: ASHLY TODD Report Released Date/Time: Dec 11, 2021 07:42 AM Reporting [facility] [address] [facility] [address] [facility] [address] [facility] [address] UREA NITROGEN 10 7-25 SODIUM 137 135-145 POTASSIUM 4.0 3.5-5.0 CHLORIDE 104 100-110 CARBON DIOXIDE 25 20-30 ANION GAP 8 4-16 GLUCOSE 99 65-100 CREATININE 0.67 0.5-1.5 CALCIUM 8.2 L 8.5-10.5 eGFR(CKD-EPI 2020) >90.0 >60 Dec 14, 2021 06:[address] [facility] CBC PROFILE Sp ecimen Type: BLOOD No comment enter ed. Ordering Provid er: ASHLY TODD Report Released Date/Time: Dec 10, 2021 07:22 AM Reporting [facility] [address] [facility] [address] [facility] [address] [facility] [address] WBC 6.0 4.5-11.0 RBC 4.29 4.23-5.66 HGB [...] NRBC 0.00 0-0 Dec 13, 2021 [facility] P4 GLU,BUN,CREAT,LYTES,CA Speci men Type: PLASMA 06:34 AM [facility] Comment: Tests performed on [employer] (405) SN:[id number] Ordering Provid er: ASHLY TODD Report Released Date/Time: Dec 11, 2021 07:42 AM Reporting Lab: [facility] [address] [facility] [address] Performing Lab: [facility] [address] [facility] [address] UREA NITROGEN 12 7-25 SODIUM 136 135-145 [...] 10, 2021 07:22 AM Reporting Lab: [facility] [address] [facility] [address] [facility] [address] [facility] [address] WBC 5.6 4.5-11.0 RBC 4.28 4.23-5.66 HGB [...] ABSOLUTE NRBC 0.00 0-0 Dec 12, 2021 [facility] P4 GLU,BUN,CREAT,LYTES,CA Speci men Type: PLASMA 06:21 AM [facility] Comment: Tests performed on V[employer] Technology (405) SN:[id number] Ordering Provid er: ASHLY TODD Report Released Date/Time: Dec 11, 2021 07:42 AM Reporting Lab: [facility] [address] [facility] [address] Performing Lab: [facility] [address] [facility] [address] UREA NITROGEN 11 7-25 SODIUM 139 135-145 POTASSIUM 4.1 3.5-5.0 CHLORIDE 107 100-110 CARBON DIOXIDE 24 20-30 ANION GAP 8 4-16 GLUCOSE 110 H 65-100 CREATININE 0.70 0.5-1.5 CALCIUM 8.3 L 8.5-10.5 eGFR(CKD-EPI 2020) >90.0 >60 Dec 12, 2021 06:21 AM [facility] CBC PROFILE Sp ecimen Type: BLOOD No comment enter ed. Ordering Provid er: ASHLY TODD Report Released Date/Time: Dec 10, 2021 07:22 AM Reporting Lab: [facility] [address] [facility] [address] Performing Lab: [facility] [address] [facility] [address] WBC 5.5 4.5-11.0 RBC 4.37 4.23-5.66 HGB [...] 0.00 0-0 Dec 12, 2021 06:00 AM [facility] MAGNESIUM Sp ecimen Type: PLASMA Comment: Testin g Performed on V[employer] Technology (405) SN:[id number] Ordering Provid er: ASHLY TODD Report Released Date/Time: Dec 12, 2021 08:24 AM Reporting Lab: [facility] [address] [facility] [address] Performing Lab: [place] [facility] [address] [facility] [address] MAGNESIUM 1.8 1.6-2.6 Dec 12, 2021 06:00 AM [place] [facility] 1 PerformanceMROC PHOSPHORUS Sp ecimen Type: PLASMA Comment: Testin g Performed on V[employer] (405) SN:[id number] Ordering Provid er: ASHLY TODD Report Released Date/Time: Dec 12, 2021 08:24 AM Reporting Lab: [place] [facility] [address] [facility] [address] Performing Lab: [place] [facility] [address] [facility] [address] PHOSPHORUS 3.1 2.5-5.0 Dec 11, 2021 06:15 AM [place] [facility] ELECTROLYTES Sp ecimen Type: PLASMA Comment: Tests performed on [employer] (405) SN:[id number] Ordering Provid er: ASHLY TODD Report Released Date/Time: Dec 10, 2021 07:22 AM Reporting Lab: [facility] [address] [facility] [address] Performing Lab: [facility] [address] [facility] [address] SODIUM 137 135-145 POTASSIUM 4.3 3.5-5.0 CHLORIDE 108 100-110 CARBON DIOXIDE 20 20-30 ANION GAP 9 4-16 Dec 11, 2021 06:[address] [facility] CBC PROFILE Sp ecimen Type: BLOOD Comment: Result s checked Ordering Provid er: ASHLY TODD Report Released Date/Time: Dec 10, 2021 07:22 AM Reporting Lab: [facility] [address] [facility] [address] Performing Lab: [facility] [address] [facility] [address] WBC 5.8 4.5-11.0 RBC 4.37 4.23-5.66 HGB [...] Type: PLASMA Comment: Tests performed on [employer] (405) SN:[id number] Results checked Ordering Provid er: ASHLY TODD Report Released Date/Time: Dec 11, 2021 07:44 AM Reporting Lab: [place] [facility] [address] [place] [facility] [place] [address] Performing Lab: [place] [facility] [address] [place] [facility] [place] [address] PHOSPHORUS 3.0 2.5-5.0 Dec 10, 2021 08:05 AM [place] [facility] MAGNESIUM Sp ecimen Type: PLASMA Comment: [place] [id number] on Dec 10, 2021@08:31 Tests performed on [employer] (405) SN:[id number] Ordering Provid er: ASHLY TODD Report Released Date/Time: Dec 10, 2021 07:22 AM Reporting Lab: [place] [facility] [address] [place] [facility] [place] [address] Performing Lab: [place] [facility] [address] [place] [facility] [place] [address] MAGNESIUM 1.7 1.6-2.6 Dec 10, 2021 08:05 AM [place] [facility] PHOSPHORUS Sp ecimen Type: PLASMA Comment: Added by Ligia on Dec 10, 2021@08:31 Tests performed on [employer] (405) SN:[id number] Ordering Provid er: ASHLY TODD Report Released Date/Time: Dec 10, 2021 07:22 AM Reporting Lab: [place] [facility] [address] [place] [facility] [place] [address] Performing Lab: [place] [facility] [address] [place] [facility] [place] [address] PHOSPHORUS 1.8 L 2.5-5.0 Dec 10, 2021 08:05 AM [place] UREA NITROGEN Specimen Type: PLASMA [facility] Comment: [place] [id number] on Dec 10, 2021@08:31 Tests performed on [employer] (405) SN:[id number] Ordering Provid er: ASHLY TODD Report Released Date/Time: Dec 10, 2021 07:22 AM Reporting Lab: [place] [facility] [address] [place] [facility] [place] [address] Performing Lab: [place] [facility] [address] [place] [facility] [place] [address] UREA NITROGEN 8 7-25 Dec 10, 2021 08:05 AM [place] [facility] CALCIUM Sp ecimen Type: PLASMA Comment: [place] [id number] on Dec 10, 2021@08:31 Tests performed on [employer] (405) SN:[id number] Ordering Provid er: ASHLY TODD Report Released Date/Time: Dec 10, 2021 07:22 AM Reporting Lab: [place] [facility] [address] [facility] [address] Performing Lab: [place] [facility] [address] [facility] [address] CALCIUM 8.3 L 8.5-10.5 Dec 10, 2021 08:05 AM [place] [facility] ELECTROLYTES Sp ecimen Type: PLASMA Comment: [place] [id number] on Dec 10, 2021@08:31 Tests performed on [employer] (405) SN:[id number] Ordering Provid er: ASHLY TODD Report Released Date/Time: Dec 10, 2021 07:22 AM Reporting Lab: [place] [facility] [address] [facility] [address] Performing Lab: [place] [facility] [address] [facility] [address] SODIUM 139 135-145 POTASSIUM 3.7 3.5-5.0 CHLORIDE 107 100-110 CARBON DIOXIDE 24 20-30 ANION GAP 8 4-16 Dec 10, 2021 08:05 AM [place] [facility] GLUCOSE Sp ecimen Type: PLASMA Comment: [place] [id number] on Dec 10, 2021@08:31 Tests performed on [employer] (405) SN:[id number] Ordering Provid er: ASHLY TODD Report Released Date/Time: Dec 10, 2021 07:22 AM Reporting Lab: [place] [facility] [address] [facility] [address] Performing Lab: [place] [facility] [address] [facility] [address] GLUCOSE 144 H 65-100 Dec 10, 2021 08:05 [place] CREATININE WITH eGFR Specime n Type: PLASMA AM [facility] PANEL Comment: [place] [id number] on Dec 10, 2021@08:31 Tests performed on [employer] (405) SN:[id number] Ordering Provid er: ASHLY TODD Report Released Date/Time: Dec 10, 2021 07:22 AM Reporting Lab: [place] [facility] [address] [facility] [address] Performing Lab: [facility] [address] [facility] [address] CREATININE 0.78 0.5-1.5 eGFR(CKD-EPI 2020) >90.0 >60 Dec 10, 2021 08:05 AM [place] [facility] CBC PROFILE Sp ecimen Type: BLOOD No comment enter ed. Ordering Provid er: ASHLY TODD Report Released Date/Time: Dec 10, 2021 07:22 AM Reporting Lab: [facility] [address] [facility] [address] Performing Lab: [facility] [address] [facility] [address] WBC 7.0 4.5-11.0 RBC 4.54 4.23-5.66 HGB [...] ecimen Type: PLASMA Comment: Tests performed on [employer] (405) SN:[id number] Ordering Provid er: ASHLY TODD Report Released Date/Time: Dec 08, 2021 10:23 AM Reporting Lab: [facility] [address] [facility] [address] Performing Lab: [facility] [address] [facility] [address] MAGNESIUM 1.6 1.6-2.6 Dec 09, 2021 [place] P4 GLU,BUN,CREAT,LYTES,CA Speci men Type: PLASMA 06:46 AM [facility] Comment: Tests performed on [employer] (405) SN:[id number] Ordering Provid er: ASHLY TODD Report Released Date/Time: Dec 08, 2021 05:00 PM Reporting Lab: [facility] [address] [facility] [address] Performing Lab: [facility] [address] [facility] [address] UREA NITROGEN 6 L 7-25 SODIUM 134 L 135-145 POTASSIUM 3.7 3.5-5.0 CHLORIDE 103 100-110 CARBON DIOXIDE 23 20-30 ANION GAP 8 4-16 GLUCOSE 112 H 65-100 CREATININE 0.70 0.5-1.5 CALCIUM 8.1 L 8.5-10.5 eGFR(CKD-EPI 2020) >90.0 >60 Dec 09, 2021 06:46 AM [place] [facility] CBC PROFILE Sp ecimen Type: BLOOD No comment enter ed. Ordering Provid er: ASHLY TODD Report Released Date/Time: Dec 08, 2021 05:00 PM Reporting Lab: [place] [facility] [address] [facility] [address] Performing Lab: [facility] [address] [facility] [address] WBC 7.1 4.5-11.0 RBC 4.40 4.23-5.66 HGB [...] 0.00 0-0 Dec 08, 2021 06:39 AM [facility] MAGNESIUM Sp ecimen Type: PLASMA Comment: Testin g Performed on [employer] (405) SN:[id number] Ordering Provid er: ASHLY TODD Report Released Date/Time: Dec 07, 2021 10:32 AM Reporting Lab: [facility] [address] [facility] [address] Performing Lab: [facility] [address] [facility] [address] MAGNESIUM 1.5 L 1.6-2.6 Dec 08, 2021 [facility] P4 GLU,BUN,CREAT,LYTES,CA Speci men Type: PLASMA 06:39 AM [facility] Comment: Testin g Performed on [employer] (405) SN:[id number] Ordering Provid er: ASHLY TODD Report Released Date/Time: Dec 07, 2021 10:32 AM Reporting Lab: [facility] [address] [facility] [address] Per[facility]: [facility] [address] [facility] [address] UREA NITROGEN 6 L 7-25 SODIUM 136 135-145 POTASSIUM 3.3 L 3.5-5.0 CHLORIDE 104 100-110 CARBON DIOXIDE 22 20-30 ANION GAP 10 4-16 GLUCOSE 133 H 65-100 CREATININE 0.76 0.5-1.5 CALCIUM 8.4 L 8.5-10.5 eGFR(CKD-EPI 2020) >90.0 >60 Dec 08, 2021 06:39 AM [facility] CBC PROFILE Sp ecimen Type: BLOOD No comment enter ed. Ordering Provid er: ASHLY TODD Report Released Date/Time: Dec 07, 2021 10:32 AM Reporting [facility] [address] [facility] [address] [facility] [address] [facility] [address] WBC 8.4 4.5-11.0 RBC 4.75 4.23-5.66 HGB [...] NRBC 0.00 0-0 Dec 07, 2021 06:42 [facility] LIVER PROFILE Specimen Typ e: PLASMA AM [facility] Comment: Tests performed on [employer] (256) SN:[id number] Ordering Provid er: PORFIRIO WALTERS Report Released Date/Time: Dec 06, 2021 06:57 PM Reporting Lab: [facility] [address] [facility] [address] [facility] [address] [facility] [address] PROTEIN, TOTAL 5.7 L 6.0-8.5 ALBUMIN 2.4 L 3.2-5.0 BILIRUBIN, TOTAL 0.4 0.2-1.2 ALKALINE PHOSPHATASE 109 40-150 ALT(SGPT) 10 7-52 AST(SGOT) 15 5-34 FIB-4 SCORE 1.92 <2.67 Dec 07, 2021 [facility] P4 GLU,BUN,CREAT,LYTES,CA Speci men Type: PLASMA 06:42 AM [facility] Comment: Tests performed on [employer] (405) SN:[id number] Ordering Provid er: PORFIRIO WALTERS Report Released Date/Time: Dec 06, 2021 06:57 PM Reporting [facility] [address] [facility] [address] Performing Lab: [facility] [address] [facility] [address] UREA NITROGEN 9 7-25 SODIUM 135 135-145 POTASSIUM 3.5 3.5-5.0 CHLORIDE 103 100-110 CARBON DIOXIDE 22 20-30 ANION GAP 10 4-16 GLUCOSE 92 65-100 CREATININE 0.73 0.5-1.5 CALCIUM 8.0 L 8.5-10.5 eGFR(CKD-EPI 2020) >90.0 >60 Dec 07, 2021 06:42 AM [facility] CBC PROFILE Specimen Type: BLOOD [facility] No comment enter ed. Ordering Provid er: PORFIRIO WALTERS Report Released Date/Time: Dec 06, 2021 06:57 PM Reporting Lab[facility] [address] [facility] [address] [facility] [address] [facility] [address] WBC 5.7 4.5-11.0 RBC 4.15 L 4.23-5.66 [...] [facility] %) AUTOMATED Comment: Tests performed on [employer] (405) SN:[id number] Ordering Provid er: ASHLY TODD Report Released Date/Time: Dec 07, 2021 10:28 AM Reporting Lab: [place] [facility] [address] [facility] [address] Performing Lab: [place] [facility] [address] [facility] [address] RETICULOCYTES (%) AUTOMATED 1.23 0. 6-2.0 RETICULOCYTES (ABS) AUTOMATED 0.052 0.030-0.090 Dec 06, 2021 09:45 [place] MRSA SURVL NARES Specimen Ty pe: NARES PM [facility] DNA No comment enter ed. Ordering Provid er: ALVARO VARGHESE Report Released Date/Time: Dec 07, 2021 02:20 AM Reporting Lab: [place] [facility] [address] [facility] [address] Performing Lab: [place] [facility] [address] [facility] [address] MRSA SURVL NARES DNA NEGATIVE NEGATIVE Dec 06, 2021 06:00 [place] URINALYSIS W/REFLEX TO Speci men Type: URINE PM [facility] CULTURE No comment enter ed. Ordering Provid er: JELANI SÁNCHEZ Report Released Date/Time: Dec 06, 2021 11:57 AM Reporting Lab: [facility] [address] [facility] [address] Performing Lab: [facility] [address] [facility] [address] URINE COLOR Arlin YELLOW SPECIFIC GRAVITY 1.029 [...] NEG Tom WHITE SARS-COV-2 Specimen Type: NASOPHARYNX VARIANT Comment: https://www.cdc.gov/coronavirus/2019-ncov/cases-updates/variant- surveillance/variant-info.html The [employer] SARS CoV 2 Insight Research Assay-GX is a next-generation sequencing (NGS) assa 2021 [facility] SEQUENCING y that determine s the complete genome sequence of the SARS-CoV-2 virus. The assay contains variant-tolerant primers to broaden and improve the coverage for variant detection and increase the sensitivity 12:00 [facility] PNL(WH) of the panel to enable detection from lower viral titer samples. The assay is run on the [employer] Sequencer, which performs automated library preparation, sequencing, analysis, and reporting. PM The sequence an alysis includes determination of viral phylogenetic lineage by comparison to the reference strain Wuhan-Hu-1, GenBank: [id number]. Sequence determination may not be possible owing [...] [facility] [address] [facility] [address] Performing Lab: [facility] [address] [facility] [address] SARS-CoV-2 CLADE(wh) 22C (OMICRON) SARS-CoV-2 LINEAGE(wh) BA.2.12.1 Dec 06, 2021 12:00 [facility] COVID-19 AG SCREEN Specimen Type: NASAL CAVITY PM [facility] PANEL BINAX(405) Comment: Testi ng Performed By: Mike Briscoe Ordering Provid er: JELANI SÁNCHEZ Report Released Date/Time: Dec 08, 2021 08:23 AM Reporting Lab: [facility] [address] [facility] [address] Per[facility]: [facility] [address] [facility] [address] COVID-19 AG SCRN(wrj BINAX) POSITIVE HH NE G Dec 06, 2021 12:00 PM [facility] BNP(P) Sp ecimen Type: PLASMA Comment: Tests performed on Pham [employer] Guide (405) SN:[id number] Ordering Provid er: JELANI SÁNCHEZ Report Released Date/Time: Dec 06, 2021 11:57 AM Reporting Lab: [place] [facility] [address] [place] [place] [address] Per[facility]: [facility] [address] [facility] [address] BNP(P) 224.8 H 10-100 Dec 06, 2021 12:00 PM [place] [facility] LIVER PROFILE Sp ecimen Type: PLASMA Comment: Testin g Performed on [employer]am [employer] Guide (405) [id number] Ordering Provid er: JELANI SÁNCHEZ Report Released Date/Time: Dec 06, 2021 11:57 AM Reporting Lab: [facility] [address] [facility] [address] Performing Lab: [facility] [address] [facility] [address] PROTEIN, TOTAL 6.6 6.0-8.5 ALBUMIN 2.8 L 3.2-5.0 BILIRUBIN, TOTAL 0.6 0.2-1.2 ALKALINE PHOSPHATASE 134 40-150 ALT(SGPT) 13 7-52 AST(SGOT) 18 5-34 FIB-4 SCORE 1.94 <2.67 Dec 06, 2021 [facility] GLU,BUN,CREAT,LYTES,CA Speci men Type: PLASMA 12:00 PM [facility] Comment: Testin g Performed on Pham Discovery Guide (405) [id number] Ordering Provid er: JELANI SÁNCHEZ Report Released Date/Time: Dec 06, 2021 11:57 AM Reporting Lab: [facility] [facility] [address] [facility] [address] Performing Lab: [facility] [address] [facility] [address] UREA NITROGEN 13 7-25 SODIUM 138 135-145 POTASSIUM 3.8 3.5-5.0 CHLORIDE 103 100-110 CARBON DIOXIDE 23 20-30 ANION GAP 12 4-16 GLUCOSE 105 H 65-100 CREATININE 0.90 0.5-1.5 CALCIUM 8.7 8.5-10.5 eGFR(CKD-EPI 2020) >90.0 >60 Dec 06, 2021 12:00 PM [facility] TROPONIN II Sp ecimen Type: PLASMA Comment: Tests performed on Pham Discovery Guide (405) [id number] Ordering Provid er: JELANI SÁNCHEZ Report Released Date/Time: Dec 06, 2021 11:57 AM Reporting Lab: [place] [facility] [address] [facility] [address] Performing Lab: [facility] [address] [facility] [address] TROPONIN II 0.03 0.00-0.29 Dec 06, 2021 [facility]+FLU/RSV DIAGNOSTIC Spe cimen Type: NASOPHARYNX 12:00 PM [facility] PANEL(405) Comment: Tests performed on [facility] (405) Critical results called to and read back by: ALESHIA WILKINSON RN 12/06/21 @ 1312 Ordering Provid er: JELANI SÁNCHEZ Report Released Date/Time: Dec 06, 2021 11:57 AM Reporting [facility] [address] [address] Performing Lab: [facility] [address] [address] FLU A(PCR) NEGATIVE NEGATIVE FLU B(PCR) NEGATIVE NEGATIVE RSV(PCR) NEGATIVE NEGATIVE COVID-19([id number]) DETECTED HH NO T DETECTED Dec 06, 2021 12:00 PM [place] [facility] CBC PROFILE Sp ecimen Type: BLOOD No comment enter ed. Ordering Provid er: JELANI SÁNCHEZ Report Released Date/Time: Dec 06, 2021 11:57 AM Reporting [facility]: [facility] [address] [address] [address] Performing Lab: [facility] [address] [address] [address] WBC 7.2 4.5-11.0 RBC 4.86 4.23-5.66 HGB [...] Source Pressure Rate Mass Index Dec 09, [place] 2021 10:43 [facility] Dec 09, 98.2 F 82 111/58 18 /min 97 % WH[place] 2021 08:31 /min mm[Hg] [facility] Dec 09, 98.3 F 106 113/69 18 /min 97 % [place] 2021 02:37 /min mm[Hg] [facility] Dec 09, 0 [place] 2021 11:42 [facility] Dec 09, 97.1 F 94 120/73 16 /min 98 % 0 [place] 2021 07:40 /min mm[Hg] [facility] Social History: Smoking Status (Most current) and Tobacco Use (All prior to encounter date) This section includes the most current, and the historical, smoking and tobacco-related health factors from the [place] facility where the Encounter took place.Current Smoking Status This section includes the most current smoking, or tobacco-related health factor, from the [place] facility where the Encounter took place. Date/Time Current Smoking Status Comment Facility Dec 06, 2021 11:40 AM QUIT TOBACCO USE > [address] [facility] Tobacco Use History This section includes a history of the smoking, or tobacco- related health factors, that were collected on or before the date of the Encounter. The data comes from the [place] facility where the Encounter took place. Date/Time Smoking Status/Tobacco Use Comment [facility] Apr 01, 2020 01:16 PM QUIT TOBACCO USE 1-[address] [facility] Mar 24, 2020 03:00 PM QUIT TOBACCO USE 1-[address] [facility] Feb 21, 2019 04:11 PM QUIT TOBACCO USE 1-[address] [facility] Feb 20, 2019 03:38 PM QUIT TOBACCO USE 1-7 YEARS AGO [facility] Feb 03, 2019 09:50 AM QUIT TOBACCO USE 1-7 YEARS AGO [facility] May 25, 2016 11:53 PM QUIT TOBACCO USE IN PAST YEAR [facility] May 23, 2016 06:57 PM QUIT TOBACCO USE > 7 YEARS AGO [facility] May 19, 2016 03:55 PM QUIT TOBACCO USE IN PAST YEAR [facility] May 19, 2016 10:29 AM QUIT TOBACCO USE 1-7 YEARS AGO [facility] May 01, 2016 07:26 PM QUIT TOBACCO USE IN PAST YEAR [facility] May 01, 2016 03:11 PM QUIT TOBACCO USE IN PAST YEAR [facility] May 01, 2016 11:19 AM QUIT TOBACCO USE IN PAST YEAR [facility] Mar 16, 2016 12:50 PM V1-PT DECLINES REF TO TOBACCO [facility] CESS PRGM Mar 16, 2016 12:50 PM V1-PT THINKING ABOUT QUIT [facility] TOBACCO USE Aug 12, 2015 08:48 AM CURRENT SMOKER [facility]ARYE Yates [facility] Radiology Reports: +/- 30 days of [...] the Encounter. The data comes from all [facility] facilities. Date/Time Radiology Report Provider Source Dec 13, 2021 12:57 PM MRI ABDOMEN W/WO CONTRAST: MARYELLEN LONG LUCAS LARES N [id number] -1950 [facility] Exm Date: DEC 13, 2021@12:57 Req Phys: ASHLY TODD Loc: OP Unknown/0 12-15-2021@13:20 Img Loc: MRI IMAGING (OOS) Service: [facility] MEDICINE (Case [id number] COMPLETE) MRI ABDOMEN W/WO CONTRAST (M RI Detailed) CPT:97030 Reason for Study: further characterization of a [...] new lyphadenopathy REQUESTING MD: Ashly Todd PAGER: [phone] PHONE: [phone] Weight: 232.2 lb [105.32 kg] (12/12/2021 05:00) [...] patient will need to arrange for a wrecking car driver to take him/her home after [...] 15, 2021 Date Verified: DEC 15, 2021 Pets Salesperson E-Sig:/ES/MARYELLEN LONG Report: MRI ABDOMEN W/WO CONTRAST [...] MALIGNANCY Primary Interpreting Staff: Staff AMELIA THOMAS (Pets Salesperson) /Dec 10, 2021 09:[address] ABDOMEN & PELVIS: RADIOLOGY,OUTSIDE [facility] LUCAS KRISHNAMURTHY N [id number] -[address] [facility] Exm Date: DEC 10, 2021@09:30 Req Phys: TODDASHLY E Josseline Loc: 1S MED/12-10@10:57 Img Loc: CT SCAN (OOS) Service: [facility] (Case [id number] COMPLETE) CT ABD & PELVIS WITHOUT CONT RAST (CT Detailed) CPT:87198 Reason for Study: 71 yo male with [...] RADIOLOGY [phone] to speak to the appropriate heavy line technician. Report Status: Verified Date Reported: DEC 10, 2021 Date Verified: DEC 10, 2021 Pets Salesperson E-Sig: Report: EXAM: CT abdomen and pelvis [...] ph nodes. READING PHYSICIAN: Ramone Munoz D.O. [phone] 12/10/2021 10:55 EDT [facility] National Teleradiology Program [phone] (For Medical Practitioner Use Only ) [address] [facility], [facility] [address], [address] [place] [address] Attention Patients / Veterans: If you have ques tions or concerns about these test results, please contact your o rdering provider or primary care team. Primary Diagnostic Code: SIGNIFICANT ABNORMALIT Y, ATTN NEEDED Primary Interpreting Staff: RADIOLOGY,OUTSIDE SERVICE, Staff Physician / Dec 09, 2021 07:34 AM BASPrincess (MODIFIED): JESSIE CHENEY [facility] LUCAS MEEK N [id number] -1950 [facility] Exm Date: DEC 09, 2021@07:34 Req Phys: ASHLY TODD Loc: 1S MED/12-09@11:26 Img Loc: XRAY (OOS) Service: [facility] MEDICINE (Case [id number] COMPLETE) DELISA (MODIFIED) (EUNICE stephenson) CPT:46733 Contrast Media : Barium Reason for Study: dysphagia ?esophageal spasm Clinical History: Report Status: Verified Date Reported: DEC 09, 2021 Date Verified: DEC 09, 2021 Pets Salesperson E-Sig:/RUPAL/JESSIE CHENEY Report: DELISA (MODIFIED) , 12/09/2021 TECHNIQUE: [...] REQUIRED Primary Interpreting Staff: JESSIE CHENEY, RADIOLOGIST (Pets Salesperson) /TLC Dec 06, 2021 12:[address] CHEST (INCLUDES ADRENALS): JESSIE CHENEY [facility] LUCAS MEEK N [id number] -1950 [facility] Exm Date: DEC 06, 2021@12:59 Req Phys: JELANI SÁNCHEZ Pat Loc: [facility] ED DAYS M 1RD (Req'g Loc) Img Loc: CT SCAN (OOS) Service: Unknown (Case [id number] COMPLETE) CT THORAX W/O CONT (CT Detai led) CPT:16283 Reason for Study: Opacification right chest Clinical History: No contrast allergy BUN: 13 (12/06/21 12:00) CREATI: 0.90 (12/06/21 12:00) eGFR 05/16/21 09:43 52 L Weight: 232.6 lb [105.51 kg] (12/06/2021 11:40) BODY MASS INDEX - NO HEIGHTS FOUND Pager number: [phone] STAT orders MUST be called t o RADIOLOGY [phone] to speak to the appropriate heavy line technician. Indications - Other: Opacification right chest, covid positive, lung cancer histo Report Status: Verified Date Reported: DEC 06, 2021 Date Verified: DEC 06, 2021 Pets Salesperson E-Sig:/ES/JESSIE CHENEY Report: CT THORAX W/O CONT [...] REQUIRED Primary Interpreting Staff: JESSIE CHENEY, RADIOLOGIST (Pets Salesperson) Primary Interpreting Resident: PRINCE CHAMPION, Resident /BR Dec 06, 2021 11:58 AM CHEST SINGLE VIEW: JESSIE CHENEY DOUGLAS N [id number] -1950 M [facility] Exm Date: DEC 06, 2021@11:58 Req Phys: JELANI SÁNCHEZ Pat Loc: [facility] ED DAYS M 1RD (Req'g Loc) Img Loc: XRAY (OOS) Service: Unknown (Case [id number] COMPLETE) CHEST SINGLE VIEW (RAD Detai led) CPT:15500 Proc Modifiers : PORTABLE EXAM Reason for Study: SOB, home covid test positive Clinical History: Report Status: Verified Date Reported: DEC 06, 2021 Date Verified: DEC 06, 2021 Pets Salesperson E-Sig:/ES/JESSIE CHENEY Report: Exam type: Chest x-ray [...] REQUIRED Primary Interpreting Staff: JESSIE CHENEY, RADIOLOGIST (Pets Salesperson) /TLC Pathology Reports: +/- 30 days of [...] the Encounter. The data comes from all [place] treatment facilities. Date/Time Pathology Report Provider Source Jan 03, 2022 10:28 AM LR SURGICAL PATHOLOGY REPORT: STEFANY MILLER LOCAL TITLE: LR SURGICAL PATHOLOGY REPORT [facility] STANDARD TITLE: PATHOLOGY REPORT DATE OF NOTE: JAN 03, 2022@10:28:01 ENTRY DATE: JAN 03, 2022@10:28:01 AUTHOR: NIURKA MILLER EXP COSIGNER: URGENCY: STATUS: COMPLETED $APHDR Reporting Lab: [facility] [CLIA# [id number]] [address] [place] [facility] [place] [address] - - - - - - [...] automatically d ocumented from SURGERY package case #[id number] Field (#32) PRINCIPAL PRE-OP DIAGNOSIS, (#.72) OTHER [...] automatically d ocumented from SURGERY package case #[id number] Field (#34) PRINCIPAL POST-OP DIAG, (#.74) OTHER [...] Label: Lucas Meek Paperwork: Lucas Meek Cassette: [id number];..;FANTASMA;.;405;[id number] Specimen is labeled: ES bx Received in formalin are several pieces of pale boyd and brown tissue, 1.2 x 0.7 cm in aggregate. Submitted entirely in 1 cassette [id number];..;FANTASMA;.;405;[id number] SAW 12/15/2021 Microscopic exam: *+* MODIFIED REPORT *+* (Last modified: JAN 03, 2022@09:30:20 typed by NIURKA WADDELL) DIAGNOSIS: A. 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 Kendell long. TIARA Coombs was notified on 12/21/21. Modified on 01/03/22 to include report from [facility] stating that tumor is NEGATIVE for her2/ matheus amplification. The attending pathologist who signature mansoor ears on this report has reviewed all diagnostic slides and has edited t he gross and/or microscopic portion of this report in rendering the final pathologic diagnosis. [facility] [address] [place] [address] CPT: 07628 /rupal/ NIURKA Yeung MD Signed Jan 03, 2022@10:28 Performing Laboratory: Surgical Pathology Report Performed By: CAREY MONTOYA [facility] [CLIA# [id number]] [address] [place] [address] $FTR - - - - - [...] - - LUCAS MEEK STANDARD FORM 515 ID:[id number] SEX:M :1950 AGE: 71 LOC: SDM END PCP: Ashly Todd /rupal/ NIURKA Yeung MD Signed: 01/03/2022 10:28 Dec 21, 2021 11:46 AM LR SURGICAL PATHOLOGY REPORT: STEFANY MILLER LOCAL TITLE: LR SURGICAL PATHOLOGY REPORT [facility] STANDARD TITLE: PATHOLOGY REPORT DATE OF NOTE: DEC 21, 2021@11:46:59 ENTRY DATE: DEC 21, 2021@11:46:59 AUTHOR: NIURKA MILLER EXP COSIGNER: URGENCY: STATUS: COMPLETED $APHDR Reporting Lab: [facility] MONTO[facility] [CLIA# [id number]] [address] [place] [facility] [place] [address] - - - - - - [...] Submitted by: ASHLY TODD Date obtained: Marizol 2021 14:59 - [...] automatically d ocumented from SURGERY package case #[id number] Field (#32) PRINCIPAL PRE-OP DIAGNOSIS, (#.72) OTHER [...] automatically d ocumented from SURGERY package case #[id number] Field (#34) PRINCIPAL POST-OP DIAG, (#.74) OTHER [...] GROSS DESCRIPTION: Name Label: Lucas Meek Paperwork: Fantasma Lucas Rojas Cassette: [id number];..;FANTASMA;.;405;[id number] Specimen is labeled: ES bx Received in formalin are several pieces of pale boyd and brown tissue, 1.2 x 0.7 cm in aggregate. Submitted entirely in 1 cassette [id number];..;FANTASMA;.;405;[id number] SAW 12/15/2021 Microscopic exam: DIAGNOSIS: A. 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 Kendell long. TIARA Coombs was notified on 12/21/21. The attending pathologist who signature mansoor ears on this report has reviewed all diagnostic slides and has edited t he gross and/or microscopic portion of this report in rendering the final pathologic diagnosis. [address] [address] CPT: 92841 /rupal/ NIURKA Yeung MD Signed Dec 21, 2021@11:46 Performing Laboratory: Surgical Pathology Report Performed By: CAREY MONTOYA [facility] [CLIA# [id number]] [address] [place] [address] $FTR - - - - - [...] - - LUCAS MEEK STANDARD FORM 515 ID:[id number] SEX:M :1950 AGE: 71 LOC: SDM END PCP: Ashly Todd /charmaine Yeung MD Signed: 12/21/2021 11:46 Dec 06, 2021 03:30 PM LR MICROBIOLOGY REPORT: [facility] L[facility] Reporting Lab: [facility] [CLIA# [id number]] [address] [id number] Accession [UID]: [id number] [[id number]] Receiv ed: Dec 06, 2021@16:14 Collection sample: BLOOD CUL T BOTTLE(NIRMAL/AERO)Collection date: Dec 06, 2021 15:30 Site/Specimen: BLOOD Provider: JELANI SÁNCHEZ Comment on specimen: LAC Test(s) ordered: BLOOD CULTURE ANAEROBI C....... completed: Dec 12, 2021 06:18 * BACTERIOLOGY FINAL REPORT => Dec 12, 2021 06:1 8 TECH CODE: 11833 Bacteriology Remark(s): NO GROWTH IN 5 DAYS =--=--=--=--=--=--=--=--=--=--=--=--=--= --=--=--=--=--=--=--=--=--=--=--=--=-- Performing Laboratory: Bacteriology Report Performed By: [facility] [CLIA# [id number]] [address] [place] [address] Dec 06, 2021 03:30 PM LR MICROBIOLOGY REPORT: [facility] Reporting Lab: [facility] [CLIA# [id number]] [address] [place] [address] Accession [UID]: [id number] [[id number]] Receiv ed: Dec 06, 2021@16:14 Collection sample: BLOOD CUL T BOTTLE(NIRMAL/AERO)Collection date: Dec 06, 2021 15:30 Site/Specimen: BLOOD Provider: JELANI SÁNCHEZ Comment on specimen: LAC Test(s) ordered: BLOOD CULTURE AEROBIC. ........ completed: Dec 12, 2021 06:17 * BACTERIOLOGY FINAL REPORT => Dec 12, 2021 06:1 7 TECH CODE: 90238 Bacteriology Remark(s): NO GROWTH IN 5 DAYS =--=--=--=--=--=--=--=--=--=--=--=--=--= --=--=--=--=--=--=--=--=--=--=--=--=-- Performing Laboratory: Bacteriology Report Performed By: CAREY MONTOYA [facility] [CLIA# [id number]] [address] [place] [place] [address] Encounter Notes: All associated encounter notes This section contains the clinical notes associated to the Encounter. Date/Time Encounter Note(s) Provider Source Dec 09, 2021 04:43 SPEECH PATHOLOGY CONSULT: CYNTHIA HERNANDEZ PM LOCAL TITLE: CONSULT - [facility] STANDARD TITLE: SPEECH PATHOLOGY CONSULT DATE OF NOTE: DEC 09, 2021@16:43 ENTRY DATE: DEC 09, 2021@16:43:56 AUTHOR: CYNTHIA HERNANDEZ EXP COSIGNER: URGENCY: STATUS: COMPLETED Modified Barium Swallow Evaluation Consult received and appreciated from the [facility] ent team for a MBS due to findings on CT Thorax suggestive of large volume aspiration within the right lung in setting of previous treatment for R lung adenoma cancer [id number]. See clinical swallowing evaluation completed yes terday for full history. Chart reviewed. Age: 71 General History: Report: CT THORAX W/O CONT 12/06/2021: Impression: 1. A probable majority of the [...] 1.4 cm left adrenal solid lesion. Consider [facility] ip[facility] or MRI for more definitive [...] empirically treat aspiration pneumonia and COVID . PMHX: Active problems - Computerized Problem List is t he source for the followin. Former smoker 2. 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 Osteoarthritis 4. Psoriasis 5. Spinal stenosis of lumbar region 6. Low back pain 7. Joint pain 8. Primary malignant neoplasm of lung 9. Morbid obesity 10. Benign essential hypertension 11. Chronic obstructive lung disease Oral Motor Exam: Face: [X] symmetric,[ ] weak/droop on ([X]left ; [ ] right) Tongue:[X] protrudes midline,[ ] deviate s to([X]left;[ ] right)[ ] Xerostomia, [ ] Fasciculations,[ ] white coated, suspected t hrush Labia: [ ] adequate,[ ] weak, drooling Vocal Quality:[ ]WNL/clear,[ ]congested,[X]hoars e, raspy,[ ]strained,[X]weak Palate:[X]Symmetric,[ ]red appearing,[X] Decreas ed on ([X]left ; [ ] right) Dentition: [ ] natural good condition,[ ], natural poor con dition,[ ] missing teeth [X] edentulous,[ ] upper dentures ([ ]good fit; [ ]loose fit),[ ] lower dentures ([ ]good fit; [ ]loose fit) Findings: Penetration Aspiration Scale:PAS Scale Thin liquids: [8 gross silen t aspiration with initial few thin liquids swallows with or without strategies t hen improved to 5, 3, 2,1 with cues for small volume sip, brief bolus hold chin tuck then swallow str ategy ] Philo thick liquids: [3,2, 1 ] Puree: [1 ] Soft solids/solids: [1 ] Esophageal Clearance : [ ] No esophageal retention or delay [X] Esophageal retention, hold up of bolus in es ophagus [X] Esophageal retention and retrograde flow to the [ ] distal esophagus, [X] mid or upper esophagus [ ] Barium Tablet DID NOT lodge, passed readily thru GEJ [ ] Barium tablet transiently lodged at the level then passed thru GEJ [ ] Barium tablet lodged and did not move from t he level [ ] Globus symptoms duplicated when ba tablet wa s lodged at the level Per radiologist report: FINDINGS: The patient demonstrates early large volume [...] note for add itional details and recommendations. Structural Abnormalities Noted: [X] cervical disc disease [ ] CP bar- [ ] 40-50% , [ ] 50-70%, [ ] 70% or more. Current diet: [ ] NPO, [ ] regular solids, [ ] soft and bite sized, [X] minced and moist, [ ] puree [ ] thin liquids, [X]mildly/nectar thick liquids , [ ] moderately/honey thick liquids Barriers to Learning: [X]Decreased memory, [ ]De mentia, [X]Anxiety, [ ][place], [X]Other, [ ]None Alert and Oriented: [X]Person, [X]Place, [X]Time Feeding: [X]Independent/self feeds, [X]min to mo d assist, [ ]needs to be fed Mobility: [ ] Indenpendent, [X]Uses walker/cane, [X]WC bound, [ ]Max assist/min mobility Assessed: [X]Standing, [X]Seated, [X] La teral projection, [X]A-P Projection, [ ]Oblique Assessed with: [X]Thin liquids by [X]N[ ]at ural cup sip, [X]Controlled cup sip, [ ]Consecutive sips,[ ] Straw sip Mildly/nectar thick liquids [X]Pudding, [X]Cracker with sip of liquid (mixed consistency),[X]Bread, [ ]13 mm ba tablet with water sips Findings of MBS: Diagnosis: Oral dysphagia: [X] mild; [X] moderate; [ ] alayna re -Prolonged chewing -piecemeal swallow -occasional premature spillag e Pharyngeal dysphagia:[ ] mild; [X] moderate; [ ] severe - decreased and sluggish LE and HE - partial epi deflection - delay- liquids fill the pharynx preswallow - gross silent aspiration of thin liqs during th e swallow on first couple swallows suggestive of incomplete glottic closur e - swallowing of thin liquids improved some over time but with only trace aspiration to no aspiration when using below cue d strategy - strategy of cued smaller volume sip, b rief bolus hold, chin tuck and swallow helped to eliminate aspiration of thin liquids - no aspiration of mildly nectar thick liquids b ut penetration - penetration of thin and mildly thick liqs - mild to mod V and PS residue and pharyngeal re sidue Pharyngoesophageal dysphagia: [ ] mild;[X]modera te;[X] severe - the esophagus is pushed at a right angle into the right side of the chest cavity with stacking of the bolus within the esophagus, filling it with minimal slow passage into the stomach. To and fr o bolus movment high to just below the UES with just 6 bolus swallo ws during this study the esophagus was filled. High risk of large volume aspiration due to the sever ity of esophageal dysmotility seen and patients tendency a nd preference to lay down on his right side after po because he feels his breathing is easier after eating laying flat on his right side. Patient educated and instruc jaguar in results and swallowing, esophageal clearance and reflux prevention strategies per below. Assessment:71-year-old male with a PMH of Stage IIIa lung cancer [...] with remdesevir (completed, off precautions) and aspiration pneumonia. P atient reports 6 month history of poor appetite leading to unintentional weight loss, e albert satiety, nausea without vomiting, and odynophagia with solid food. Patient presents with multip hase dysphagia with evidence of large volume silent aspiration of thin liquids during the swallow terry ggestive of possible glottic insufficiency, as well as se summer esophageal dysphagia characterized by severely abnormal esophageal placement deviated from midl ine to the right side of the chest with a large column of barium remaining within the esophagus post swallow and at the end of the study. Patient reports oft en laying down on his right side after he eating as he feels his breathing i s improved in that position. Based on results of this study suspect that posi tion would significantly increase the risk of aspiration due to retained bolus within the esophagus likely retrograde flowing into the upper airway as well as risk of reflux. Patient tolerated mildly thick liquids b krista with no aspiration seen. He also was instructed in strategy of taking smaller vol umes sips, briefly holding within the oral cavity, chin tuck and then swall owing with thin liquids. This was beneficial in eliminating aspiration however patient needs moderate to max cueing to implement consistently and effectively . Patient is cachectic, deconditioned and weak unsure if he will be able to meet his hydration and nutritional needs by oral means alone given the severity and multi phase dysphagia seen today and difficulty to date. Rec ommend full liquid diet with mildly thick liquids and supplements per RD. Agree with upcoming plans for EGD and GI consult giving esophageal findings and re ports of early satiety significant weight loss and findings on CT. Will follow. Agree with palliative care consult and would recommend ENT consult to assess vocal fold functioning given gross aspiration seen during the swallow s uggestive of glottic insufficiency. Recommendations: 1. Diet: Full liquid diet with mildly/nectar thi ck liquids, no ice in drinks, no ice cream as they worsen esophageal spasms and decrease esophageal clearance further and cause discomfort. Allow unthickened water only (no ice) between me als only when not eating any food and only allow unthickened water al l other liquids should be thickened to mildly/nectar consistency. 2. Pills: [ ] whole as tolerated; [X ] crushed i n puree 3. Aspiration and reflux prevention strategies 4. Reflux Strategies: [ ] Avoid/cut down on coffee or carbonated drin ks ie soda, beer, etc [X] Avoid laying down 2 hours after meals [ ] Try to suck on lifesaver/ cough drop or gabby w gum for 10-15 mins after meals to encourage esophageal clearan ce and decrease reflux. [X] Elevate HOB 35 degrees to decrease noc refl ux, DO NOT LAY DOWN ON HIS RIGHT SIDE AFTER PO, STAY UP RIGHT FOR 2 HOURS AFTER MEALS AND THEN NO LOWER THAN 35 DEGREES IN BED TO DECREASE REFL UX/REGURGITATION FROM THE ESOPHAGUS INTO THE AIRWAY [X] Room temp water with meals and avoid ice co ld liquids or carbonated liquids [X] Make sure to drink liquids DURING meals and alt solid and liquids throughout the meal. [X] Continue PPI as prescribed [ ] Try to walk some after meals as able/undo t op button of pants when eating and after meals to decrease ab dominal pressure which can increase reflux. [ ] Out of bed for meals as able 5. Swallowing Strategies/Exercises: [X] Small bites and sips [X] No straws [X] Take small sip, briefly hold in your mouth, chin tuck, then swallow [ ] Avoid mixed consistencies such as non-unifo rm soups, dry cereal with milk, or using liquids to wash down solids [X] Fully swallow solids before taking a sip 6. CHARGE ENTRY SPECIALIST will follow. 7. Consider: [X] EGD- as planned as an outpatient unless pat ient is unable to tolerate even full liquid di et over the next couple days, if not then would rec referral for EGD while inpatient at that time. [ ] Full Barium Swallow [X] GI Consult- pending how the next couple day s go in terms of tolerating full liquid diet [ ] Neuro Consult [X] ENT Consult- to assess vocal fold closure danish benton gross silent aspiration of thin li quids during the swallow suggestive of possible poor or incomplete glottic closure. [X] dependening upon how patient tolerates full liquid diet with mildly thick liquids with supplements in terms of volume of intake to meet his needs and in terms of his respiratory status may need to consider alternate means of nutrition given 71 weight loss in [facility] ng of dysphagia complaints, early satiety and esophageal discomfort with swa llowing over the past 6-8 months. /rupal/ Cynthia Hernandez MS [facility] [employer] Speech Language Pathologist Signed: 01/15/2022 14:02
--- OUTSIDE RECORDS SUMMARY | 2022-01-19 08:32 | XMS_ITS ---
DAILY HOSPITALIZATION DATA [facility] Encounter Summary Created on:December 09, 2021 Patient:LUCAS MEEK Sex:Male :1950 Author Organization [facility] Address [address] [place] [id number] Support Name Relationship Address Phone YUSRA MEEK Unavailable [address] [place] [address] YUSRA MEEK Unavailable [address] [place] [facility] [place] [address] CLAY MOLSEY Unavailable Unavailable SJ SANTACRUZ Unavailable Unavailable Insurance [...] MEDICARE MEDICARE PART Jun 18, PART A [id number] DO KALYANI PATIENT (WNR) (M) A 2016 13A 1 U[place]AS MEDICARE MEDICARE PART Jun 18, PART B [id number] DO KALYANI PATIENT (WNR) (M) B 2017 VH81 2 LAS MEDICARE MEDICARE PART Jun 18, PART B [id number] DO KALYANI PATIENT (WNR) (M) B 2016 13A 1 [place]AS MEDICARE MEDICARE PART Jun 18, PART A [id number] DO KALYANI PATIENT (WNR) (M) A 2017 VH81 2 U[place]AS UNITED MEDICARE MCR(Jun 18 [id number] Luz MEEK PATIENT HEALTHCARE ADVANTAGE NR) 2021 37 0 [facility] (WNR) Selected Encounter This section includes the information on record at [place] for the Encounter. Date/Time Encounter Type Encounter Description Reason Provider Source Dec 09, 2021 10:50 Inpatient Visit DAILY HOSPITALIZATION DATA PM IHE [...] [place] [facility] Jan 10, 2022 11:30 AM AM[facility] Jan 24, 2022 08:00 [place] [facility] Feb 21, 2022 10:00 AM [place]BUL[place] [facility] Mar 21, 2022 10:30 AM [facility]INE [facility] Active, Pending, and Scheduled [...] The data comes from all [place] treatment [facility]. Test Date/Time Test Type Test Details Facility Name October 31, 2021 07:37 AM Consult Order COMMUNITY CARE-EGD [facility] Cons Assistant Sales Manager's Choice November 15, 2021 10:[address] [facility] CARE-PODIATRY Cons Assistant Sales Manager's Choice Dec 06, 2021 12:52 PM [place]acy - [place] Infusion Order [facility] Dec 06, 2021 03:24 PM Pharmacy - [place] Order [facility] Dec 06, 2021 03:40 PM [place]acy - [place] Order [facility] Dec 15, 2021 08:41 AM Consult Order SPEECH PATHOLOGY [place] OUT[place] Cons [facility] Assistant Sales Manager's Choice Jan 15, 2022 10:[address] [facility] CARE-PALLIATIVE CARE Cons Assistant Sales Manager's Choice Lab Results: +/- 30 days [...] Reference Range Comment Dec 15, 2021 [place] P4 GLU,BUN,CREAT,LYTES,CA Speci men Type: PLASMA 06:43 AM [facility] Comment: Tests performed on 170 Systems (405) SN:[id number] Ordering Provid er: ISATU TODD Report Released Date/Time: Dec 11, 2021 07:42 AM Reporting Lab: [facility] T [facility] [address] [facility] [address] Performing Lab: [facility] [address] [facility] [address] UREA NITROGEN 9 7-25 SODIUM 137 135-145 POTASSIUM 3.8 3.5-5.0 CHLORIDE 105 100-110 CARBON DIOXIDE 26 20-30 ANION GAP 6 4-16 GLUCOSE 102 H 65-100 CREATININE 0.64 0.5-1.5 CALCIUM 8.1 L 8.5-10.5 eGFR(CKD-EPI 2020) >90.0 >60 Dec 15, 2021 06:43 AM [facility] CBC PROFILE Sp ecimen Type: BLOOD No comment enter ed. Ordering Provid er: ISATU TODD Report Released Date/Time: Dec 10, 2021 07:22 AM Reporting Lab: [facility] [address] [facility] [address] Performing Lab: [facility] [address] [facility] [address] WBC 5.7 4.5-11.0 RBC 4.22 L 4.23-5.66 [...] ABSOLUTE NRBC 0.00 0-0 Dec 14, 2021 [facility] CYTOGENETIC Specimen Type: ESOPHAGUS 02:59 PM VAOC FISH([facility]) Comment: ~For T est: CYTOGENETIC FISH([facility]) ~FISH HER 2 NUE, FFPE See full report in [employer] Image display viewer/tab#LAB-Reference Ordering Provid er: NIURKA MILLER Report Released Date/Time: Dec 21, 2021 12:11 PM Reporting Lab: [facility] [address] [facility] [address] Performing Lab: [facility] CYTOGENETIC FISH([facility]) comment Dec 14, 2021 [facility] P4 GLU,BUN,CREAT,LYTES,CA Speci men Type: PLASMA 06:27 AM [facility] Comment: Tests performed on 170 Systems (405) SN:[id number] Ordering Provid er: ISATU TODD Report Released Date/Time: Dec 11, 2021 07:42 AM Reporting Lab: [facility] [address] [facility] [address] Performing Lab: [facility] [address] [facility] [address] UREA NITROGEN 10 7-25 SODIUM 137 135-145 POTASSIUM 4.0 3.5-5.0 CHLORIDE 104 100-110 CARBON DIOXIDE 25 20-30 ANION GAP 8 4-16 GLUCOSE 99 65-100 CREATININE 0.67 0.5-1.5 CALCIUM 8.2 L 8.5-10.5 eGFR(CKD-EPI 2020) >90.0 >60 Dec 14, 2021 06:27 AM [facility] CBC PROFILE Sp ecimen Type: BLOOD No comment enter ed. Ordering Provid er: ISATU TODD Report Released Date/Time: Dec 10, 2021 07:22 AM Reporting Lab: [facility] [address] [facility] [address] Performing Lab: [facility] [address] [facility] [address] WBC 6.0 4.5-11.0 RBC 4.29 4.23-5.66 HGB [...] ABSOLUTE NRBC 0.00 0-0 Dec 13, 2021 [facility] P4 GLU,BUN,CREAT,LYTES,CA Speci men Type: PLASMA 06:34 AM [facility] Comment: Tests performed on 170 Systems (405) SN:[id number] Ordering Provid er: ISATU TODD Report Released Date/Time: Dec 11, 2021 07:42 AM Reporting Lab: [facility] [address] [facility] [address] Performing Lab: [facility] [address] [facility] [address] UREA NITROGEN 12 7-25 SODIUM 136 135-145 POTASSIUM 3.9 3.5-5.0 CHLORIDE 105 100-110 CARBON DIOXIDE 24 20-30 ANION GAP 7 4-16 GLUCOSE 102 H 65-100 CREATININE 0.66 0.5-1.5 CALCIUM 8.3 L 8.5-10.5 eGFR(CKD-EPI 2020) >90.0 >60 Dec 13, 2021 06:34 AM [facility] CBC PROFILE Sp ecimen Type: BLOOD No comment enter ed. Ordering Provid er: ISATU TODD Report Released Date/Time: Dec 10, 2021 07:22 AM Reporting Lab: [facility] [address] [facility] [address] Performing Lab: [facility] [address] [facility] [address] WBC 5.6 4.5-11.0 RBC 4.28 4.23-5.66 HGB [...] ABSOLUTE NRBC 0.00 0-0 Dec 12, 2021 [facility] P4 GLU,BUN,CREAT,LYTES,CA Speci men Type: PLASMA 06:21 AM [facility] Comment: Tests performed on 170 Systems (405) SN:[id number] Ordering Provid er: ISATU TODD Report Released Date/Time: Dec 11, 2021 07:42 AM Reporting Lab: [facility] [address] [facility] [address] Performing Lab: [facility] [address] [facility] [address] UREA NITROGEN 11 7-25 SODIUM 139 135-145 POTASSIUM 4.1 3.5-5.0 CHLORIDE 107 100-110 CARBON DIOXIDE 24 20-30 ANION GAP 8 4-16 GLUCOSE 110 H 65-100 CREATININE 0.70 0.5-1.5 CALCIUM 8.3 L 8.5-10.5 eGFR(CKD-EPI 2020) >90.0 >60 Dec 12, 2021 06:21 AM [facility] CBC PROFILE Sp ecimen Type: BLOOD No comment enter ed. Ordering Provid er: ISATU TODD Report Released Date/Time: Dec 10, 2021 07:22 AM Reporting Lab: [facility] [address] [facility] [address] Performing Lab: [facility] [address] [facility] [address] WBC 5.5 4.5-11.0 RBC 4.37 4.23-5.66 HGB [...] 0.00 0-0 Dec 12, 2021 06:00 AM [facility] PHOSPHORUS Sp ecimen Type: PLASMA Comment: Testin g Performed on 170 Systems (405) SN:[id number] Ordering Provid er: ISATU TODD Report Released Date/Time: Dec 12, 2021 08:24 AM Reporting Lab: [facility] [address] [facility] [address] Performing Lab: [employer] [place] [facility] [address] [facility] [address] PHOSPHORUS 3.1 2.5-5.0 Dec 12, 2021 06:00 AM [employer] MAGNESIUM Sp ecimen Type: PLASMA Comment: Testin g Performed on 170 Systems (405) SN:[id number] Ordering Provid er: ISATU TODD Report Released Date/Time: Dec 12, 2021 08:24 AM Reporting Lab: [facility] [address] [facility] [address] Performing Lab: [facility] [address] [facility] [address] MAGNESIUM 1.8 1.6-2.6 Dec 11, 2021 06:15 AM [employer] ELECTROLYTES Sp ecimen Type: PLASMA Comment: Tests performed on 170 Systems (405) SN:[id number] Ordering Provid er: ISATU TODD Report Released Date/Time: Dec 10, 2021 07:22 AM Reporting Lab: [facility] [address] [facility] [address] Performing Lab: [facility] [address] [facility] [address] SODIUM 137 135-145 POTASSIUM 4.3 3.5-5.0 CHLORIDE 108 100-110 CARBON DIOXIDE 20 20-30 ANION GAP 9 4-16 Dec 11, 2021 06:15 AM [facility] CBC PROFILE Sp ecimen Type: BLOOD Comment: Result s checked Ordering Provid er: ISATU TODD Report Released Date/Time: Dec 10, 2021 07:22 AM Reporting Lab: [facility]GAT [facility] [address] [facility] [address] Performing Lab: [place] [facility] [address] [facility] [address] WBC 5.8 4.5-11.0 RBC 4.37 4.23-5.66 HGB [...] ecimen Type: PLASMA Comment: Tests performed on 170 Systems (229) SN:[id number] Results checked Ordering Provid er: ISATU TODD Report Released Date/Time: Dec 11, 2021 07:44 AM Reporting Lab: [facility] [facility] [address] [facility] [address] Performing Lab: [place] OMEGAT [facility] [address] [facility] [address] PHOSPHORUS 3.0 2.5-5.0 Dec 10, 2021 08:05 AM [place] [facility] MAGNESIUM Sp ecimen Type: PLASMA Comment: [place] [id number] on Dec 10, 2021@08:31 Tests performed on 170 Systems (405) SN:[id number] Ordering Provid er: ISATU TODD Report Released Date/Time: Dec 10, 2021 07:22 AM Reporting Lab: [place] [facility] [address] [place] [facility] [place] [address] Performing Lab: [place] [facility] [address] [place] [facility] [place] [address] MAGNESIUM 1.7 1.6-2.6 Dec 10, 2021 08:05 AM [place] [facility] PHOSPHORUS Sp ecimen Type: PLASMA Comment: [place] [id number] on Dec 10, 2021@08:31 Tests performed on 170 Systems (405) SN:[id number] Ordering Provid er: ISATU TODD Report Released Date/Time: Dec 10, 2021 07:22 AM Reporting Lab: [place] [facility] [address] [place] [facility] [place] [address] Performing Lab: [place] [facility] [address] [place] [facility] [place] [address] PHOSPHORUS 1.8 L 2.5-5.0 Dec 10, 2021 08:05 AM [place] UREA NITROGEN Specimen Type: PLASMA [facility] Comment: [place] [id number] on Dec 10, 2021@08:31 Tests performed on 170 Systems (405) SN:[id number] Ordering Provid er: ISATU TODD Report Released Date/Time: Dec 10, 2021 07:22 AM Reporting Lab: [place] [facility] [address] [place] [facility] [place] [address] Performing Lab: [place] [facility] [address] [place] [facility] [place] [address] UREA NITROGEN 8 7-25 Dec 10, 2021 08:05 AM [place] [facility] ELECTROLYTES Sp ecimen Type: PLASMA Comment: [place] [id number] on Dec 10, 2021@08:31 Tests performed on 170 Systems (405) SN:[id number] Ordering Provid er: ISATU TODD Report Released Date/Time: Dec 10, 2021 07:22 AM Reporting Lab: [place] [facility] [address] [facility] [address] Performing Lab: [facility] [address] [facility] [address] SODIUM 139 135-145 POTASSIUM 3.7 3.5-5.0 CHLORIDE 107 100-110 CARBON DIOXIDE 24 20-30 ANION GAP 8 4-16 Dec 10, 2021 08:05 AM [facility] CBC PROFILE Sp ecimen Type: BLOOD No comment enter ed. Ordering Provid er: ISATU TODD Report Released Date/Time: Dec 10, 2021 07:22 AM Reporting Lab: [facility] [address] [facility] [address] Performing Lab: [facility] [address] [facility] [address] WBC 7.0 4.5-11.0 RBC 4.54 4.23-5.66 HGB [...] 0.00 0-0 Dec 10, 2021 08:05 AM [facility] GLUCOSE Sp ecimen Type: PLASMA Comment: [place] [id number] on Dec 10, 2021@08:31 Tests performed on Pham [employer] Checker (405) SN:[id number] Ordering Provid er: ISATU TODD Report Released Date/Time: Dec 10, 2021 07:22 AM Reporting Lab: [place] [facility] [address] [facility] [address] Performing Lab: [place] [facility] [address] [facility] [address] GLUCOSE 144 H 65-100 Dec 10, 2021 08:05 AM [place] [facility] CALCIUM Sp ecimen Type: PLASMA Comment: [place] [id number] on Dec 10, 2021@08:31 Tests performed on Pham [employer]er (405) SN:[id number] Ordering Provid er: ISATU TODD Report Released Date/Time: Dec 10, 2021 07:22 AM Reporting Lab: [place] [facility] [address] [facility] [address] Performing Lab: [place] [facility] [address] [facility] [address] CALCIUM 8.3 L 8.5-10.5 Dec 10, 2021 08:05 [place] CREATININE WITH eGFR Specime n Type: PLASMA AM [facility] PANEL Comment: [place] [id number] on Dec 10, 2021@08:31 Tests performed on Pham NativeX (405) SN:[id number] Ordering Provid er: ISATU TODD Report Released Date/Time: Dec 10, 2021 07:22 AM Reporting Lab: [place] [facility] [address] [place] [facility] [place] [address] Performing Lab: [place] [facility] [address] [facility] [address] CREATININE 0.78 0.5-1.5 eGFR(CKD-EPI 2020) >90.0 >60 Dec 09, 2021 06:46 AM [place] [facility] MAGNESIUM Sp ecimen Type: PLASMA Comment: Tests performed on Pham NativeX (405) SN:[id number] Ordering Provid er: ISATU TODD Report Released Date/Time: Dec 08, 2021 10:23 AM Reporting Lab: [place] [facility] [address] [place] [facility] [place] [address] Performing Lab: [place] [facility] [address] [facility] [address] MAGNESIUM 1.6 1.6-2.6 Dec 09, 2021 [facility] P4 GLU,BUN,CREAT,LYTES,CA Speci men Type: PLASMA 06:46 AM [facility] Comment: Tests performed on 170 Systems (405) SN:[id number] Ordering Provid er: ISATU TODD Report Released Date/Time: Dec 08, 2021 05:00 PM Reporting Lab: [facility] [address] [facility] [address] Performing Lab: [facility] [address] [facility] [address] UREA NITROGEN 6 L 7-25 SODIUM 134 L 135-145 POTASSIUM 3.7 3.5-5.0 CHLORIDE 103 100-110 CARBON DIOXIDE 23 20-30 ANION GAP 8 4-16 GLUCOSE 112 H 65-100 CREATININE 0.70 0.5-1.5 CALCIUM 8.1 L 8.5-10.5 eGFR(CKD-EPI 2020) >90.0 >60 Dec 09, 2021 06:46 AM [facility] CBC PROFILE Sp ecimen Type: BLOOD No comment enter ed. Ordering Provid er: ISATU TODD Report Released Date/Time: Dec 08, 2021 05:00 PM Reporting Lab: [facility] [address] [facility] [address] Performing Lab: [facility] [address] [facility] [address] WBC 7.1 4.5-11.0 RBC 4.40 4.23-5.66 HGB [...] ABSOLUTE NRBC 0.00 0-0 Dec 08, 2021 [place] P4 GLU,BUN,CREAT,LYTES,CA Speci men Type: PLASMA 06:39 AM [facility] Comment: Testin g Performed on 170 Systems (405) SN:[id number] Ordering Provid er: ISATU TODD Report Released Date/Time: Dec 07, 2021 10:32 AM Reporting Lab: [facility] [address] [facility] [address] Performing Lab: [facility] [address] [facility] [address] UREA NITROGEN 6 L 7-25 SODIUM 136 135-145 POTASSIUM 3.3 L 3.5-5.0 CHLORIDE 104 100-110 CARBON DIOXIDE 22 20-30 ANION GAP 10 4-16 GLUCOSE 133 H 65-100 CREATININE 0.76 0.5-1.5 CALCIUM 8.4 L 8.5-10.5 eGFR(CKD-EPI 2020) >90.0 >60 Dec 08, 2021 06:39 AM [facility] MAGNESIUM Sp ecimen Type: PLASMA Comment: Testin g Performed on 170 Systems (405) SN:[id number] Ordering Provid er: ISATU TODD Report Released Date/Time: Dec 07, 2021 10:32 AM Reporting Lab: [facility] [address] [facility] [address] Performing Lab: [facility] [address] [facility] [address] MAGNESIUM 1.5 L 1.6-2.6 Dec 08, 2021 06:39 AM [facility] CBC PROFILE Sp ecimen Type: BLOOD No comment enter ed. Ordering Provid er: ISATU TODD Report Released Date/Time: Dec 07, 2021 10:32 AM Reporting Lab: [facility] [address] [facility] [address] Performing Lab: [facility] [address] [facility] [...] NRBC 0.00 0-0 Dec 07, 2021 06:42 [facility] LIVER PROFILE Specimen Typ e: PLASMA AM [facility] Comment: Tests performed on 170 Systems (405 SN:[id number] Ordering Provid er: PORFIRIO WALTERS Report Released Date/Time: Dec 06, 2021 06:57 PM Reporting Lab: [facility] [address] [facility] [address] Performing Lab: [facility] [address] [facility] [address] PROTEIN, TOTAL 5.7 L 6.0-8.5 ALBUMIN 2.4 L 3.2-5.0 BILIRUBIN, TOTAL 0.4 0.2-1.2 ALKALINE PHOSPHATASE 109 40-150 ALT(SGPT) 10 7-52 AST(SGOT) 15 5-34 FIB-4 SCORE 1.92 <2.67 Dec 07, 2021 [facility] GLU,BUN,CREAT,LYTES,CA Speci men Type: PLASMA 06:42 AM [facility] Comment: Tests performed on 170 Systems (405) SN:[id number] Ordering Provid er: PORFIRIO WALTERS Report Released Date/Time: Dec 06, 2021 06:57 PM Reporting Lab: [place] [facility] [address] [facility] [address] Performing Lab: [place] [facility] [address] [facility] [address] UREA NITROGEN 9 7-25 SODIUM 135 135-145 POTASSIUM 3.5 3.5-5.0 CHLORIDE 103 100-110 CARBON DIOXIDE 22 20-30 ANION GAP 10 4-16 GLUCOSE 92 65-100 CREATININE 0.73 0.5-1.5 CALCIUM 8.0 L 8.5-10.5 eGFR(CKD-EPI 2020) >90.0 >60 Dec 07, 2021 06:42 AM [place] CBC PROFILE Specimen Type: BLOOD [facility] No comment enter ed. Ordering Provid er: PORFIRIO WALTERS Report Released Date/Time: Dec 06, 2021 06:57 PM Reporting Lab: [place] [facility] [address] [facility] [address] Performing Lab: [facility] [address] [facility] [address] WBC 5.7 4.5-11.0 RBC 4.15 L 4.23-5.66 [...] [facility]AM[facility] %) AUTOMATED Comment: Tests performed on 170 Systems (405) SN:[id number] Ordering Provid er: ISATU TODD Report Released Date/Time: Dec 07, 2021 10:28 AM Reporting Lab: [place] [facility] [address] [facility] [address] Performing Lab: [place] [facility] [address] [facility] [address] RETICULOCYTES (%) AUTOMATED 1.23 0. 6-2.0 RETICULOCYTES (ABS) AUTOMATED 0.052 0.030-0.090 Dec 06, 2021 09:45 [place] MRSA SURVL NARES Specimen Ty pe: NARES PM [facility] DNA No comment enter ed. Ordering Provid er: ALVARO VARGHESE Report Released Date/Time: Dec 07, 2021 02:20 AM Reporting Lab: [place] [facility] [address] [facility] [address] Performing Lab: [place] [facility] [address] [facility] [address] MRSA SURVL NARES DNA NEGATIVE NEGATIVE Dec 06, 2021 06:00 [place] URINALYSIS W/REFLEX TO Speci men Type: URINE PM [facility] CULTURE No comment enter ed. Ordering Provid er: JELANI SÁNCHEZ Report Released Date/Time: Dec 06, 2021 11:57 AM Reporting Lab: [place] [facility] [address] [facility] [address] Performing Lab: [place] [facility] [address] [facility] [address] URINE COLOR Arlin YELLOW SPECIFIC GRAVITY 1.029 [...] 21, [place]IANT Comment: https://www.cdc.gov/coronavirus/2019-ncov/cases-updates/variant- surveillance/variant-info.html The [employer] SARS CoV 2 [facility] [employer] Assay-GX is a next-generation sequencing (NGS) assa 2021 [facility] SEQUENCING y that determine s the complete genome sequence of the SARS-CoV-2 virus. The assay contains variant-tolerant primers to broaden and improve the coverage for variant detection and increase the sensitivity 12:00 [facility] PNL(WH) of the panel to enable detection from lower viral titer samples. The assay is run on the [employer] Sequencer, which performs automated library preparation, sequencing, analysis, and reporting. PM The sequence an alysis includes determination of viral phylogenetic lineage by comparison to the reference strain Wuhan-Hu-1, GenBank: [id number]. Sequence determination may not be possible owing [...] Dec 06, 2021 01:13 PM Reporting Lab: [facility] [address] [facility] [address] Performing Lab: [facility] [address] [facility] [address] SARS-CoV-2 CLADE() 22C (OMICRON) SARS-CoV-2 LINEAGE() BA.2.12.1 Dec 06, 2021 12:00 [facility] COVID-19 AG SCREEN Specimen Type: NASAL CAVITY PM [facility] PANEL BINAX(405) Comment: Testi ng Performed By: Mike Briscoe Ordering Provid er: JELANI SÁNCHEZ Report Released Date/Time: Dec 08, 2021 08:23 AM Reporting Lab: [facility] [address] [facility] [address] Performing Lab: [facility] [address] [facility] [address] COVID-19 AG SCRN(wrj BINAX) POSITIVE HH NE G Dec 06, 2021 12:00 PM [facility] TROPONIN II Sp ecimen Type: PLASMA Comment: Tests performed on [employer] (405) SN:[id number] Ordering Provid er: JELANI SÁNCHEZ Report Released Date/Time: Dec 06, 2021 11:57 AM Reporting Lab: [facility] [address] [facility] [address] Performing Lab: [facility] [address] [facility] [address] TROPONIN II 0.03 0.00-0.29 Dec 06, 2021 [place] P4 GLU,BUN,CREAT,LYTES,CA Speci men Type: PLASMA 12:00 PM [facility] Comment: Testin g Performed on [employer] (405) SN:[id number] Ordering Provid er: JELANI SÁNCHEZ Report Released Date/Time: Dec 06, 2021 11:57 AM Reporting Lab: [place] [facility] [address] [facility] [address] Performing Lab: [place] [facility] [address] [facility] [address] UREA NITROGEN 13 7-25 SODIUM 138 135-145 POTASSIUM 3.8 3.5-5.0 CHLORIDE 103 100-110 CARBON DIOXIDE 23 20-30 ANION GAP 12 4-16 GLUCOSE 105 H 65-100 CREATININE 0.90 0.5-1.5 CALCIUM 8.7 8.5-10.5 eGFR(CKD-EPI 2020) >90.0 >60 Dec 06, 2021 12:00 PM [facility] LIVER PROFILE Sp ecimen Type: PLASMA Comment: Testin g Performed on [employer] (405) SN:[id number] Ordering Provid er: JELANI SÁNCHEZ Report Released Date/Time: Dec 06, 2021 11:57 AM Reporting Lab: [facility] [address] [facility] [address] Performing Lab: [facility] [address] [facility] [address] PROTEIN, TOTAL 6.6 6.0-8.5 ALBUMIN 2.8 L 3.2-5.0 BILIRUBIN, TOTAL 0.6 0.2-1.2 ALKALINE PHOSPHATASE 134 40-150 ALT(SGPT) 13 7-52 AST(SGOT) 18 5-34 FIB-4 SCORE 1.94 <2.67 Dec 06, 2021 [facility] COVID-19+FLU/RSV DIAGNOSTIC Spe cimen Type: NASOPHARYNX 12:00 PM [facility] PANEL(405) Comment: Tests performed on Pathogenetix Genexpert (405) Critical results called to and read back by: ALESHIA WILKINSON RN 12/06/21 @ 1312 Ordering Provid er: JELANI SÁNCHEZ Report Released Date/Time: Dec 06, 2021 11:57 AM Reporting Lab: [facility] [address] [facility] [address] Performing Lab: [facility] [address] [facility] [address] FLU A(PCR) NEGATIVE NEGATIVE FLU B(PCR) NEGATIVE NEGATIVE RSV(PCR) NEGATIVE NEGATIVE COVID-19(MNP-wiw-HFIFNRUXR) DETECTED HH NO T DETECTED Dec 06, 2021 12:00 PM [facility] BNP(P) Sp ecimen Type: PLASMA Comment: Tests performed on Pham Repairer And Checker (405) [id number] Ordering Provid er: JELANI SÁNCHEZ Report Released Date/Time: Dec 06, 2021 11:57 AM Reporting Lab: [facility] [address] [facility] [address] Performing Lab: [facility] [address] [facility] [address] BNP(P) 224.8 H 10-100 Dec 06, 2021 12:00 PM [facility] CBC PROFILE Sp ecimen Type: BLOOD No comment enter ed. Ordering Provid er: JELANI SÁNCHEZ Report Released Date/Time: Dec 06, 2021 11:57 AM Reporting [facility] [address] [facility] [address] [facility]: [facility] [address] [facility] [address] WBC 7.2 4.5-11.0 RBC 4.86 4.23-5.66 HGB [...] 2021 10:43 [place] PM [facility] Dec 09, 98.2 F 82 111/58 18 /min 97 % 2021 08:31 /min mm[Hg] [facility] PM [facility] Dec 09, 98.3 F 106 113/69 18 /min 97 % [place] 2021 02:37 /min mm[Hg] RIVER PM T [facility] Dec 09, 0 2021 11:42 [place] AM [facility] Dec 09, 97.1 F 94 120/73 16 /min 98 % 0 [place] 2021 07:40 /min mm[Hg] [place] AM [facility] Social [...] QUIT TOBACCO USE > 7 YEARS AGO [facility] Tobacco Use History This section includes a history of the smoking, or tobacco- related health factors, that were collected on or before the date of the Encounter. The data comes from the [place] facility where the Encounter took place. Date/Time Smoking Status/Tobacco Use Comment [facility] Apr 01, 2020 01:16 PM QUIT TOBACCO USE 1-7 YEARS AGO [facility] Mar 24, 2020 03:00 PM QUIT TOBACCO USE 1-7 YEARS AGO [facility] Feb 21, 2019 04:11 PM QUIT TOBACCO USE 1-7 YEARS AGO [facility] Feb 20, 2019 03:38 PM QUIT TOBACCO USE 1-7 YEARS AGO [facility] Feb 03, 2019 09:50 AM QUIT TOBACCO USE 1-7 YEARS AGO [facility] May 25, 2016 11:53 PM QUIT TOBACCO USE IN PAST YEAR [facility] May 23, 2016 06:57 PM QUIT TOBACCO USE > 7 YEARS AGO [facility] May 19, 2016 03:55 PM QUIT TOBACCO USE IN PAST YEAR [facility] May 19, 2016 10:29 AM QUIT TOBACCO USE 1-7 YEARS AGO [facility] May 01, 2016 07:26 PM QUIT TOBACCO USE IN PAST YEAR [facility] May 01, 2016 03:11 PM QUIT TOBACCO USE IN PAST YEAR [facility] May 01, 2016 11:19 AM QUIT TOBACCO USE IN PAST YEAR [facility] [place] [facility] Mar 16, 2016 12:50 PM V1-PT DECLINES REF TO TOBACCO [facility] [place] [facility] CESS [facility] Mar 16, 2016 12:50 PM [...] W/WO CONTRAST: MARYELLEN LONG LUCAS LARES N [id number] -1950 [facility] Exm Date: DEC 13, 2021@12:57 Req Phys: ISATU TODD Loc: OP Unknown/0 12-15-2021@13:20 Img Loc: MRI IMAGING (OOS) Service: [facility] MEDICINE (Case [id number] COMPLETE) MRI ABDOMEN W/WO CONTRAST (M RI Detailed) CPT:45956 Reason for Study: further characterization of a [...] new lyphadenopathy REQUESTING MD: Isatu Todd PAGER: [phone] PHONE: [phone] Weight: 232.2 lb [105.32 kg] (12/12/2021 05:00) [...] patient will need to arrange for a otr flatbed driver to take him/her home after the [...] 15, 2021 Date Verified: DEC 15, 2021 Trackman E-Sig:/ES/MARYELLEN LONG Report: MRI ABDOMEN W/WO CONTRAST [...] MALIGNANCY Primary Interpreting Staff: Staff AMELIA THOMAS (Trackman) / Dec 10, 2021 09:[address] ABDOMEN & PELVIS: [facility] LUC[facility]EEK N [id number] -1950 M [facility] Exm Date: DEC 10, 2021@09:30 Req Phys: ISATU TODD Loc: 1S MED/12-10@10:57 Img Loc: CT SCAN (OOS) Service: [facility] (Case [id number] COMPLETE) CT ABD & PELVIS WITHOUT CONT RAST (CT Detailed) CPT:87704 Reason for Study: 71 yo male with [...] INDEX - NO HEIGHTS FOUND Pager number: [phone] STAT orders MUST be call ed to RADIOLOGY [phone] to speak to the appropriate precision lens technician. Report Status: Verified Date Reported: DEC 10, 2021 Date Verified: DEC 10, 2021 Trackman E-Sig: Report: EXAM: CT abdomen and pelvis [...] ph nodes. READING PHYSICIAN: Ramone Munoz D.O. [phone] 12/10/2021 10:55 EDT [facility] National Teleradiology Program [phone] (For Medical Practitioner Use Only ) [address] [facility] [facility] [address] [place] [address] Attention Patients / Veterans: If you have ques tions or concerns about these test results, please contact your o rdering provider or primary care team. Primary Diagnostic Code: SIGNIFICANT ABNORMALIT Y, ATTN NEEDED Primary Interpreting Staff: RADIOLOGY,OUTSIDE SERVICE, Staff Physician / Dec 09, 2021 07:34 AM BASW (MODIFIED): JESSIE CHENEY [facility] LUCAS MEEK N [id number] -1950 M [facility] Exm Date: DEC 09, 2021@07:34 Req Phys: ISATU TODD Loc: 1S MED/12-09@11:26 Img Loc: XRAY (OOS) Service: [facility] MEDICINE (Case [id number] COMPLETE) BASW (MODIFIED) (RAD Detaile d) CPT:19941 Contrast Media : Barium Reason for Study: dysphagia ?esophageal spasm Clinical History: Report Status: Verified Date Reported: DEC 09, 2021 Date Verified: DEC 09, 2021 Trackman E-Sig:/ES/JESSIE CHENEY Report: DELISA (MODIFIED) , 12/09/2021 [...] REQUIRED Primary Interpreting Staff: JESSIE CHENEY, RADIOLOGIST (Trackman) /TLC Dec 06, 2021 12:[address] CHEST (INCLUDES ADRENALS): JESSIE CHENEY [facility] LUCAS MEEK N [id number] -1950 M [facility] Exm Date: DEC 06, 2021@12:59 Req Phys: JELANI SÁNCHEZ Pat Loc: [facility] ED DAYS M 1RD (Req'g Loc) Img Loc: CT SCAN (OOS) Service: Unknown (Case [id number] COMPLETE) CT THORAX W/O CONT (CT Detai led) CPT:59655 Reason for Study: Opacification right chest Clinical History: No contrast allergy BUN: 13 (12/06/21 12:00) CREATI: 0.90 (12/06/21 12:00) eGFR 05/16/21 09:43 52 L Weight: 232.6 lb [105.51 kg] (12/06/2021 11:40) BODY MASS INDEX - NO HEIGHTS FOUND Pager number: [phone] STAT orders MUST be called t o RADIOLOGY [phone] to speak to the appropriate precision lens technician. Indications - Other: Opacification right chest, covid positive, lung cancer histo Report Status: Verified Date Reported: DEC 06, 2021 Date Verified: DEC 06, 2021 Trackman E-Sig:/ES/JESSIE CHENEY Report: CT THORAX W/O CONT [...] REQUIRED Primary Interpreting Staff: JESSIE CHENEY, RADIOLOGIST (Trackman) Primary Interpreting Resident: PRINCE CHAMPION, Resident /ABBI Dec 06, 2021 11:58 AM CHEST SINGLE VIEW: JESSIE CHENEYT LUCAS MEEK N [id number] -1950 M [facility] Exm Date: DEC 06, 2021@11:58 Req Phys: JELANI SÁNCHEZ Pat Loc: [facility] ED DAYS M 1RD (Req'g Loc) Img Loc: XRAY (OOS) Service: Unknown (Case [id number] COMPLETE) CHEST SINGLE VIEW (RAD Detai led) CPT:71785 Proc Modifiers : PORTABLE EXAM Reason for Study: SOB, home covid test positive Clinical History: Report Status: Verified Date Reported: DEC 06, 2021 Date Verified: DEC 06, 2021 Trackman E-Sig:/ES/JESSIE CHENEY Report: Exam type: Chest x-ray [...] REQUIRED Primary Interpreting Staff: JESSIE CHENEY, RADIOLOGIST (Trackman) /TLC Pathology Reports: +/- 30 days of [...] AM LR SURGICAL PATHOLOGY REPORT: STEFANY MILLER [facility] LOCAL TITLE: LR SURGICAL PATHOLOGY REPORT [facility] STANDARD TITLE: PATHOLOGY REPORT DATE OF NOTE: JAN 03, 2022@10:28:01 ENTRY DATE: JAN 03, 2022@10:28:01 AUTHOR: NIURKA MILLER EXP COSIGNER: URGENCY: STATUS: COMPLETED $APHDR Reporting Lab: [facility] [CLIA# [id number]] [address] [place] [address] - - - - - - [...] automatically d ocumented from SURGERY package case #[id number] Field (#32) PRINCIPAL PRE-OP DIAGNOSIS, (#.72) OTHER [...] automatically d ocumented from SURGERY package case #[id number] Field (#34) PRINCIPAL POST-OP DIAG, (#.74) OTHER [...] Label: Lucas Meek Paperwork: Lucas Meek Cassette: [id number];..;KALYANI;.;405;[id number] Specimen is labeled: ES bx Received in formalin are several pieces of pale boyd and brown tissue, 1.2 x 0.7 cm in aggregate. Submitted entirely in 1 cassette [id number];..;KALYANI;.;405;[id number] SAW 12/15/2021 Microscopic exam: *+* MODIFIED REPORT *+* (Last modified: JAN 03, 2022@09:30:20 typed by NIURKA WADDELL) DIAGNOSIS: A. 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 Kendell long. TIARA Coombs was notified on 12/21/21. Modified on 01/03/22 to include report from [facility] stating that tumor is NEGATIVE for her2/ matheus amplification. The attending pathologist who signature mansoor ears on this report has reviewed all diagnostic slides and has edited t he gross and/or microscopic portion of this report in rendering the final pathologic diagnosis. [address] [address] CPT: 82317 /emely/ NIURKA Yeung MD Signed Jan 03, 2022@10:28 Performing Laboratory: Surgical Pathology Report Performed By: [facility] [CLIA# [id number]] [address] [place] [address] $FTR - - - - - [...] - - LUCAS MEEK STANDARD FORM 515 ID:[id number] SEX:M :1950 AGE: 71 LOC: SDM END PCP: Isatu Todd /emely/ NIURKA MILLER Staff Signed: 01/03/2022 10:28 Dec 21, 2021 11:46 AM LR SURGICAL PATHOLOGY REPORT: STEFANY MILLER [facility] LOCAL TITLE: LR SURGICAL PATHOLOGY REPORT [facility] STANDARD TITLE: PATHOLOGY REPORT DATE OF NOTE: DEC 21, 2021@11:46:59 ENTRY DATE: DEC 21, 2021@11:46:59 AUTHOR: NIURKA MILLER EXP COSIGNER: URGENCY: STATUS: COMPLETED $APHDR Reporting Lab: [facility] [CLIA# [id number]] [address] [place] [address] - - - - - - [...] automatically d ocumented from SURGERY package case #[id number] Field (#32) PRINCIPAL PRE-OP DIAGNOSIS, (#.72) OTHER [...] automatically d ocumented from SURGERY package case #[id number] Field (#34) PRINCIPAL POST-OP DIAG, (#.74) OTHER [...] Label: Lucas Meek Paperwork: Lucas Meek Cassette: [id number];..;KALYANI;.;405;[id number] Specimen is labeled: ES bx Received in formalin are several pieces of pale boyd and brown tissue, 1.2 x 0.7 cm in aggregate. Submitted entirely in 1 cassette [id number];..;KALYANI;.;405;[id number] SAW 12/15/2021 Microscopic exam: DIAGNOSIS: A. 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 Kendell long. TIARA Coombs was notified on 12/21/21. The attending pathologist who signature mansoor ears on this report has reviewed all diagnostic slides and has edited t he gross and/or microscopic portion of this report in rendering the final pathologic diagnosis. [address] [address] CPT: 96764 /emely/ NIURKA Yeung MD Signed Dec 21, 2021@11:46 Performing Laboratory: Surgical Pathology Report Performed By: [facility] [CLIA# [id number]] [address] [place] [address] $FTR - - - - - [...] - - LUCAS MEEK STANDARD FORM 515 ID:[id number] SEX:M :1950 AGE: 71 LOC: [facility] END PCP: Isatu Todd /emely/ NIURKA Yeung MD Signed: 12/21/2021 11:46 Dec 06, 2021 03:30 PM LR [facility] Reporting Lab: [facility] [CLIA# [id number]] [address] [place] [address] Accession [UID]: [id number] [[id number]] Receiv ed: Dec 06, 2021@16:14 Collection sample: BLOOD CUL T BOTTLE(NIRMAL/AERO)Collection date: Dec 06, 2021 15:30 Site/Specimen: BLOOD Provider: JELANI SÁNCHEZ Comment on specimen: LAC Test(s) ordered: BLOOD CULTURE ANAEROBI C....... completed: Dec 12, 2021 06:18 * BACTERIOLOGY FINAL REPORT => Dec 12, 2021 06:1 8 TECH CODE: [id number] Bacteriology Remark(s): NO GROWTH IN 5 DAYS =--=--=--=--=--=--=--=--=--=--=--=--=--= --=--=--=--=--=--=--=--=--=--=--=--=-- Performing Laboratory: Bacteriology Report Performed By: [facility] [CLIA# [id number]] [address] [place] [address] Dec 06, 2021 03:30 PM LR MICROBIOLOGY REPORT: [facility] Reporting Lab: [facility] [CLIA# [id number]] [address] [place] [address] Accession [UID]: [id number] [[id number]] Receiv ed: Dec 06, 2021@16:14 Collection sample: BLOOD CUL T BOTTLE(NIRMAL/AERO)Collection date: Dec 06, 2021 15:30 Site/Specimen: BLOOD Provider: JELANI SÁNCHEZ Comment on specimen: LAC Test(s) ordered: BLOOD CULTURE AEROBIC. ........ completed: Dec 12, 2021 06:17 * BACTERIOLOGY FINAL REPORT => Dec 12, 2021 06:1 7 TECH CODE: [id number] Bacteriology Remark(s): NO GROWTH IN 5 DAYS =--=--=--=--=--=--=--=--=--=--=--=--=--= --=--=--=--=--=--=--=--=--=--=--=--=-- Performing Laboratory: Bacteriology Report Performed By: [facility] [CLIA# [id number]] [address] [place] [address]
--- OUTSIDE RECORDS SUMMARY | 2022-01-19 08:32 | XMS_ITS ---
DAILY HOSPITALIZATION DATA [facility] Encounter Summary Created on:December 09, 2021 Patient:LUCAS MEEK Sex:Male :1950 Author Organization [facility] Address [address] [place] [address] Support Name Relationship Address Phone YUSRA MEEK Unavailable [address] [place] [address] YUSRA MEEK Unavailable [address] [place] [facility] [place] [address] CLAY MOSLEY Unavailable Unavailable SJ SANTACRUZ Unavailable [...] MEDICARE MEDICARE PART Jun 18, PART A [id number] DO KALYANI PATIENT (WNR) (M) A 2016 13A 1 [facility] MEDICARE MEDICARE PART Jun 18, PART B [id number] DO KALYANI PATIENT (WNR) (M) B 2016 13A 1 [place] MEDICARE MEDICARE PART Jun 18, PART A [id number] KALYANIDO PATIENT (WNR) (M) A 2017 VH81 2 [place] MEDICARE MEDICARE PART Jun 18, PART B [id number] DO KALYANI PATIENT (WNR) (M) B 2017 VH81 2 [place] UNITED MEDICARE MCR(Jun 18 [id number] Luz MEEK PATIENT HEALTHCARE ADVANTAGE NR) 2021 37 0 [facility] (WNR) Selected Encounter This section includes the information on record at [place] for the Encounter. Date/Time Encounter Type Encounter Description Reason Provider Source Dec 09, 2021 10:42 Inpatient Visit DAILY HOSPITALIZATION DATA PM E Encounter Template Text not used by [place] Plan of Treatment: Future Appointments (+ 6 months) and Future Tests (+/- 45 days) The Plan of Treatment section includes future care activities for the patient from all [place] treatmentfacilities. This section includes future appointments and future orders which are active, pending orscheduled.Future Appointments This section includes appointments that were scheduled to occur 6 months from the date of the Encounter, up to a maximum of 20 appointments. The data comes from all [place] treatment facilities. Appointment Date/Time Appointment Type Appointment Facili ty Name Dec 21, 2021 08:00 AM AM[place] NONE [place] [facility] Jan 06, 2022 02:00 PM [place] [facility] Jan 10, 2022 11:30 AM [facility]ICINE [facility] Jan 24, 2022 08:00 [place] [facility] Feb 21, 2022 10:00 AM [place] [facility] Mar 21, 2022 10:30 AM [...] the Encounter. The data comes from all [place] treatment [facility]. Test Date/Time Test Type Test Details Facility Name October 31, 2021 07:37 AM Consult Order [facility]GD [facility] Cons [place] [facility] November 15, 2021 10:37 AM Consult Order [facility] CARE-PODIATRY Cons [place] [facility] Dec 06, 2021 12:52 PM Pharmacy [...] Cons [facility] [place] [facility] Jan 15, 2022 10:08 PM Consult Order [facility] CARE-PALLIATIVE CARE Cons [place] [facility] Lab Results: +/- 30 days of [...] Reference Range Comment Dec 15, 2021 [place] P4 GLU,BUN,CREAT,LYTES,[place] Speci men Type: PLASMA 06:43 AM [facility] Comment: Tests performed on LivingSocial (405) SN:[id number] Ordering Provid er: ISATU TODD Report Released Date/Time: Dec 11, 2021 07:42 AM Reporting Lab: [facility] [address] [facility] [address] Performing Lab: [facility] [address] [facility] [address] UREA NITROGEN 9 7-25 SODIUM 137 135-145 POTASSIUM 3.8 3.5-5.0 CHLORIDE 105 100-110 CARBON DIOXIDE 26 20-30 ANION GAP 6 4-16 GLUCOSE 102 H 65-100 CREATININE 0.64 0.5-1.5 CALCIUM 8.1 L 8.5-10.5 eGFR(CKD-EPI 2020) >90.0 >60 Dec 15, 2021 06:43 AM [place] [facility] CBC PROFILE Sp ecimen Type: BLOOD No comment enter ed. Ordering Provid er: ISATU TODD Report Released Date/Time: Dec 10, 2021 07:22 AM Reporting Lab: [facility] [address] [facility] [address] Performing Lab: [facility] [address] [facility] [address] WBC 5.7 4.5-11.0 RBC 4.22 L 4.23-5.66 [...] CYTOGENETIC Specimen Type: ESOPHAGUS 02:59 PM [facility] FISH([facility]) Comment: ~For T est: CYTOGENETIC FISH([facility]) ~FISH HER 2 NUE, FFPE See full report in uBeam Image display viewer/tab#LAB-Reference Ordering Provid er: NIURKA MILLER Report Released Date/Time: Dec 21, 2021 12:11 PM Reporting Lab: [facility] [address] [facility] [address] Performing Lab: [facility] CYTOGENETIC FISH([facility]) comment Dec 14, 2021 [facility] P4 GLU,BUN,CREAT,LYTES,CA Speci men Type: PLASMA 06:27 AM [facility] Comment: Tests performed on LivingSocial (405) SN:[id number] Ordering Provid er: ISATU TODD Report Released Date/Time: Dec 11, 2021 07:42 AM Reporting Lab: [facility] [address] [facility] [address] Performing Lab: [facility] [address] [facility] [address] UREA NITROGEN 10 7-25 SODIUM 137 135-145 [...] Reporting Lab: [facility] [address] [facility] [address] Performing Lab: [facility] [address] [facility] [address] WBC 6.0 4.5-11.0 RBC 4.29 4.23-5.66 HGB [...] [place] Comment: Tests performed on LivingSocial (405) SN:[id number] Ordering Provid er: ISATU TODD Report Released Date/Time: Dec 11, 2021 07:42 AM Reporting Lab: [facility] [address] [facility] [address] Performing Lab: [facility] [address] [facility] [address] UREA NITROGEN 12 7-25 SODIUM 136 135-145 [...] Reporting Lab: [facility] [address] [facility] [address] Performing Lab: [facility] [address] [facility] [address] WBC 5.6 4.5-11.0 RBC 4.28 4.23-5.66 HGB [...] [place] Comment: Tests performed on LivingSocial (405) SN:[id number] Ordering Provid er: ISATU TODD Report Released Date/Time: Dec 11, 2021 07:42 AM Reporting Lab: [facility] [address] [facility] [address] Performing Lab: [facility] [address] [facility] [address] UREA NITROGEN 11 7-25 SODIUM 139 135-145 [...] Dec 10, 2021 07:22 AM Reporting Lab: [facility] [address] [facility] [address] Performing Lab: [facility] [address] [facility] [address] WBC 5.5 4.5-11.0 RBC 4.37 4.23-5.66 HGB [...] 0.00 0-0 Dec 12, 2021 06:00 AM [facility] MAGNESIUM Sp ecimen Type: PLASMA Comment: Testin g Performed on LivingSocial (405) SN:[id number] Ordering Provid er: ISATU TODD Report Released Date/Time: Dec 12, 2021 08:24 AM Reporting Lab: [place] [facility] [address] [facility] [address] Performing Lab: [place] [facility] [address] [facility] [address] MAGNESIUM 1.8 1.6-2.6 Dec 12, 2021 06:00 AM [facility] PHOSPHORUS Sp ecimen Type: PLASMA Comment: Testin g Performed on LivingSocial (405) SN:[id number] Ordering Provid er: ISATU TODD Report Released Date/Time: Dec 12, 2021 08:24 AM Reporting Lab: [place] [facility] [address] [facility] [address] Performing Lab: [place] [facility] [address] [facility] [address] PHOSPHORUS 3.1 2.5-5.0 Dec 11, 2021 06:15 AM [place] ([place] [facility] ELECTROLYTES Sp ecimen Type: PLASMA Comment: Tests performed on LivingSocial (405) SN:[id number] Ordering Provid er: ISATU TODD Report Released Date/Time: Dec 10, 2021 07:22 AM Reporting Lab: [place] [facility] [address] [facility] [address] Performing Lab: [place] [facility] [address] [facility] [address] SODIUM 137 135-145 POTASSIUM 4.3 3.5-5.0 CHLORIDE 108 100-110 CARBON DIOXIDE 20 20-30 ANION GAP 9 4-16 Dec 11, 2021 06:15 AM [place] CasetextT [facility] CBC PROFILE Sp ecimen Type: BLOOD Comment: Result s checked Ordering Provid er: ISATU TODD Report Released Date/Time: Dec 10, 2021 07:22 AM Reporting Lab: [place] [facility] [facility] [address] [facility] [address] Performing Lab: [place] [facility]ME[facility] [address] [facility] [address] WBC 5.8 4.5-11.0 RBC 4.37 4.23-5.66 HGB [...] 0.00 0-0 Dec 11, 2021 06:00 AM [facility] PHOSPHORUS Sp ecimen Type: PLASMA Comment: Tests performed on LivingSocial (504) SN:[id number] Results checked Ordering Provid er: ISATU TODD Report Released Date/Time: Dec 11, 2021 07:44 AM Reporting Lab: [facility] [facility] [address] [facility] [address] Performing Lab: [place] OME[place] [facility] [address] [facility] [address] PHOSPHORUS 3.0 2.5-5.0 Dec 10, 2021 08:05 AM [place] [facility] MAGNESIUM Sp ecimen Type: PLASMA Comment: [place] [id number] on Dec 10, 2021@08:31 Tests performed on LivingSocial (405) SN:[id number] Ordering Provid er: ISATU TODD Report Released Date/Time: Dec 10, 2021 07:22 AM Reporting Lab: [place] [facility] [address] [facility] [place] [place] [address] Performing Lab: [place] [facility] [address] [facility] [place] [address] MAGNESIUM 1.7 1.6-2.6 Dec 10, 2021 08:05 AM [place] [facility] PHOSPHORUS Sp ecimen Type: PLASMA Comment: [place] [id number] on Dec 10, 2021@08:31 Tests performed on LivingSocial (405) SN:[id number] Ordering Provid er: ISATU TODD Report Released Date/Time: Dec 10, 2021 07:22 AM Reporting Lab: [place] [facility] [address] [facility] [place] [address] Performing Lab: [place] [facility] [address] [facility] [place] [address] PHOSPHORUS 1.8 L 2.5-5.0 Dec 10, 2021 08:05 AM [place] UREA NITROGEN Specimen Type: PLASMA [facility] Comment: [place] [id number] on Dec 10, 2021@08:31 Tests performed on LivingSocial (405) SN:[id number] Ordering Provid er: ISATU TODD Report Released Date/Time: Dec 10, 2021 07:22 AM Reporting Lab: [place] [facility] [address] [facility] [place] [address] Performing Lab: [place] [facility] [address] [facility] [place] [address] UREA NITROGEN 8 7-25 Dec 10, 2021 08:05 AM [place] [facility] CALCIUM Sp ecimen Type: PLASMA Comment: [place] [id number] on Dec 10, 2021@08:31 Tests performed on LivingSocial (405) SN:[id number] Ordering Provid er: ISATU TODD Report Released Date/Time: Dec 10, 2021 07:22 AM Reporting Lab: [place] [facility] [address] [facility] [address] Performing Lab: [place] [facility] [address] [facility] [address] CALCIUM 8.3 L 8.5-10.5 Dec 10, 2021 08:05 AM [place] [facility] GLUCOSE Sp ecimen Type: PLASMA Comment: [place] [id number] on Dec 10, 2021@08:31 Tests performed on [employer] (405) SN:[id number] Ordering Provid er: ISATU TODD Report Released Date/Time: Dec 10, 2021 07:22 AM Reporting Lab: [place] [facility] [address] [facility] [address] Performing Lab: [place] [facility] [address] [facility] [address] GLUCOSE 144 H 65-100 Dec 10, 2021 08:05 AM [place] [facility] ELECTROLYTES Sp ecimen Type: PLASMA Comment: [place] [id number] on Dec 10, 2021@08:31 Tests performed on Living[employer] (405) SN:[id number] Ordering Provid er: ISATU TODD Report Released Date/Time: Dec 10, 2021 07:22 AM Reporting Lab: [place] [facility] [address] [facility] [address] Performing Lab: [place] [facility] [address] [facility] [address] SODIUM 139 135-145 POTASSIUM 3.7 3.5-5.0 CHLORIDE 107 100-110 CARBON DIOXIDE 24 20-30 ANION GAP 8 4-16 Dec 10, 2021 08:05 [place] CREATININE WITH eGFR Specime n Type: PLASMA AM [facility] PANEL Comment: [place] [id number] on Dec 10, 2021@08:31 Tests performed on Living[employer] (405) SN:[id number] Ordering Provid er: ISATU TODD Report Released Date/Time: Dec 10, 2021 07:22 AM Reporting Lab: [place] [facility] [address] [facility] [address] Performing Lab: [place] [facility] [address] [facility] [address] CREATININE 0.78 0.5-1.5 eGFR(CKD-EPI 2020) >90.0 >60 Dec 10, 2021 08:05 AM [facility] CBC PROFILE Sp ecimen Type: BLOOD No comment enter ed. Ordering Provid er: ISATU TODD Report Released Date/Time: Dec 10, 2021 07:22 AM Reporting Lab: [place] [facility]ME[facility] [address] [facility] [address] Performing Lab: [place] [facility] [address] [facility] [address] WBC 7.0 4.5-11.0 RBC 4.54 4.23-5.66 HGB [...] 0.00 0-0 Dec 09, 2021 06:46 AM [facility] MAGNESIUM Sp ecimen Type: PLASMA Comment: Tests performed on LivingSocial (852) SN:[id number] Ordering Provid er: ISATU TODD Report Released Date/Time: Dec 08, 2021 10:23 AM Reporting Lab: [facility] [address] [facility] [address] Performing Lab: [facility] [address] [facility] [address] MAGNESIUM 1.6 1.6-2.6 Dec 09, 2021 [facility] P4 GLU,BUN,CREAT,LYTES,[place] Speci men Type: PLASMA 06:46 AM [facility] Comment: Tests performed on Living[employer] (405) SN:[id number] Ordering Provid er: ISATU TODD Report Released Date/Time: Dec 08, 2021 05:00 PM Reporting Lab: [facility] [address] [facility] [address] Performing Lab: [facility] [address] [facility] [address] UREA NITROGEN 6 L 7-25 SODIUM 134 [...] Reporting Lab: [facility] [address] [facility] [address] Performing Lab: [facility] [address] [facility] [address] WBC 7.1 4.5-11.0 RBC 4.40 4.23-5.66 HGB [...] 0.00 0-0 Dec 08, 2021 06:39 AM [place] Search to Phone T [facility] MAGNESIUM Sp ecimen Type: PLASMA Comment: Testin g Performed on Living[employer] (405) SN:[id number] Ordering Provid er: ISATU TODD Report Released Date/Time: Dec 07, 2021 10:32 AM Reporting Lab: [facility] [address] [facility] [address] Performing Lab: [facility] [address] [facility] [address] MAGNESIUM 1.5 L 1.6-2.6 Dec 08, 2021 [place] Search to Phone T P4 GLU,BUN,CREAT,LYTES,CA Speci men Type: PLASMA 06:39 AM [facility] Comment: Testin g Performed on Living[employer] (405) SN:[id number] Ordering Provid er: ISATU TODD Report Released Date/Time: Dec 07, 2021 10:32 AM Reporting Lab: [place] [facility] [address] [facility] [address] Performing Lab: [facility] [address] [facility] [address] UREA NITROGEN 6 L 7-25 SODIUM 136 135-145 POTASSIUM 3.3 L 3.5-5.0 CHLORIDE 104 100-110 CARBON DIOXIDE 22 20-30 ANION GAP 10 4-16 GLUCOSE 133 H 65-100 CREATININE 0.76 0.5-1.5 CALCIUM 8.4 L 8.5-10.5 eGFR(CKD-EPI 2020) >90.0 >60 Dec 08, 2021 06:39 AM [place] Search to Phone T [facility] CBC PROFILE Sp ecimen Type: BLOOD No comment enter ed. Ordering Provid er: ISATU TODD Report Released Date/Time: Dec 07, 2021 10:32 AM Reporting Lab: [facility] [address] [facility] [address] Performing Lab: [facility] [address] [facility] WBC 8.4 4.5-11.0 RBC 4.75 [...] NRBC 0.00 0-0 Dec 07, 2021 06:42 [facility] LIVER PROFILE Specimen Typ e: PLASMA AM [facility] Comment: Tests performed on LivingSocial (405 SN:[id number] Ordering Provid er: PORFIRIO WALTERS Report Released Date/Time: Dec 06, 2021 06:57 PM Reporting Lab: [facility] [address] [facility] [address] Performing Lab: [facility] [address] [facility] [address] PROTEIN, TOTAL 5.7 L 6.0-8.5 ALBUMIN 2.4 L 3.2-5.0 BILIRUBIN, TOTAL 0.4 0.2-1.2 ALKALINE PHOSPHATASE 109 40-150 ALT(SGPT) 10 7-52 AST(SGOT) 15 5-34 FIB-4 SCORE 1.92 <2.67 Dec 07, 2021 [facility] GLU,BUN,CREAT,LYTES,[place] Speci men Type: PLASMA 06:42 AM [facility] Comment: Tests performed on Living[employer] (405) SN:[id number] Ordering Provid er: PORFIRIO WALTERS Report Released Date/Time: Dec 06, 2021 06:57 PM Reporting Lab: [place] [facility] [address] [facility] [address] Performing Lab: [place] [facility] [address] [facility] [address] UREA NITROGEN 9 7-25 SODIUM 135 135-145 POTASSIUM 3.5 3.5-5.0 CHLORIDE 103 100-110 CARBON DIOXIDE 22 20-30 ANION GAP 10 4-16 GLUCOSE 92 65-100 CREATININE 0.73 0.5-1.5 CALCIUM 8.0 L 8.5-10.5 eGFR(CKD-EPI 2020) >90.0 >60 Dec 07, 2021 06:42 AM [place] CBC PROFILE Specimen Type: BLOOD [facility] No comment enter ed. Ordering Provid er: PORFIRIO WALTERS Report Released Date/Time: Dec 06, 2021 06:57 PM Reporting Lab: [place] [facility] [address] [facility] [address] Performing Lab: [facility] [address] [facility] [address] WBC 5.7 4.5-11.0 RBC 4.15 L 4.23-5.66 [...] [facility]AM[facility] %) AUTOMATED Comment: Tests performed on [employer] (405) SN:[id number] Ordering Provid er: ISATU TODD Report Released Date/Time: Dec 07, 2021 10:28 AM Reporting Lab: [place] [facility] [address] [facility] [address] Performing Lab: [place] [facility] [address] [facility] [address] RETICULOCYTES (%) AUTOMATED 1.23 0. 6-2.0 RETICULOCYTES (ABS) AUTOMATED 0.052 0.030-0.090 Dec 06, 2021 09:45 [place] MRSA SURVL NARES Specimen Ty pe: NARES PM [facility] DNA No comment enter ed. Ordering Provid er: ALVARO VARGHESE Report Released Date/Time: Dec 07, 2021 02:20 AM Reporting Lab: [place] [facility] [address] [facility] [address] Performing Lab: [place] [facility] [address] [facility] [address] MRSA SURVL NARES DNA NEGATIVE NEGATIVE Dec 06, 2021 06:00 [place] URINALYSIS W/REFLEX TO Speci men Type: URINE PM [facility] CULTURE No comment enter ed. Ordering Provid er: JELANI SÁNCHEZ Report Released Date/Time: Dec 06, 2021 11:57 AM Reporting Lab: [place] [facility] [address] [facility] [address] Performing Lab: [place] [facility] [address] [facility] [address] URINE COLOR Arlin YELLOW SPECIFIC GRAVITY 1.029 [...] 21, [place] VARIANT Comment: https://www.cdc.gov/coronavirus/2019-ncov/cases-updates/variant- surveillance/variant-info.html The [employer] Tech SARS CoV 2 [employer]wan Mobile Research Assay-GX is a next-generation sequencing (NGS) assa 2021 [facility] SEQUENCING y that determine s the complete genome sequence of the SARS-CoV-2 virus. The assay contains variant-tolerant primers to broaden and improve the coverage for variant detection and increase the sensitivity 12:00 [facility] PNL(WH) of the panel to enable detection from lower viral titer samples. The assay is run on the [employer]ke[employer] Sequencer, which performs automated library preparation, sequencing, analysis, and reporting. PM The sequence an alysis includes determination of viral phylogenetic lineage by comparison to the reference strain Wuhan-Hu-1, GenBank: [id number]. Sequence determination may not be possible owing [...] and its performance characteristics determined by the [facility], which is certified under the Clinical Laboratory Improveme nt Amendments (C MARCO) as qualified to perform high complexity clinical laboratory testing. This test is validated for clinical use at [facility] and should not be regarded as investigational or for research. The FDA does not require this test to go through premarket FDA review, and therefore it has not been cleared or approved by the FDA. This report was reviewed and approved by the on-service pathologist. Ordering Provid er: JELANI SÁNCHEZ Report Released Date/Time: Dec 06, 2021 01:13 PM Reporting Lab: [place] [facility] [address] [facility] [address] Performing Lab: [facility] [address] [facility] [address] SARS-CoV-2 CLADE() 22C (OMICRON) SARS-CoV-2 LINEAGE() BA.2.12.1 Dec 06, 2021 12:00 [facility] COVID-19 AG SCREEN Specimen Type: NASAL CAVITY PM [facility] PANEL BINAX(405) Comment: Testi ng Performed By: Mike Briscoe Ordering Provid er: JELANI SÁNCHEZ Report Released Date/Time: Dec 08, 2021 08:23 AM Reporting Lab: [facility] [address] [facility] [address] Performing Lab: [facility] [address] [facility] [address] COVID-19 AG SCRN(wrj BINAX) POSITIVE HH NE G Dec 06, 2021 12:00 PM [facility] BNP(P) Sp ecimen Type: PLASMA Comment: Tests performed on [employer] (405) SN:[id number] Ordering Provid er: JELANI SÁNCHEZ Report Released Date/Time: Dec 06, 2021 11:57 AM Reporting Lab: [place] [facility] [address] [facility] [address] Performing Lab: [place] [facility] [address] [facility] [address] BNP(P) 224.8 H 10-100 Dec 06, 2021 [place] P4 GLU,BUN,CREAT,LYTES,CA Speci men Type: PLASMA 12:00 PM [facility] Comment: Testin g Performed on [employer] (405) SN:[id number] Ordering Provid er: JELANI SÁNCHEZ Report Released Date/Time: Dec 06, 2021 11:57 AM Reporting Lab: [place] [facility] [address] [facility] [address] Performing Lab: [place] [facility] [address] [facility] [address] UREA NITROGEN 13 7-25 SODIUM 138 135-145 POTASSIUM 3.8 3.5-5.0 CHLORIDE 103 100-110 CARBON DIOXIDE 23 20-30 ANION GAP 12 4-16 GLUCOSE 105 H 65-100 CREATININE 0.90 0.5-1.5 CALCIUM 8.7 8.5-10.5 eGFR(CKD-EPI 2020) >90.0 >60 Dec 06, 2021 12:00 PM [facility] LIVER PROFILE Sp ecimen Type: PLASMA Comment: Testin g Performed on [employer] (405) SN:[id number] Ordering Provid er: JELANI SÁNCHEZ Report Released Date/Time: Dec 06, 2021 11:57 AM Reporting Lab: [facility] [address] [facility] [address] Performing Lab: [facility] [address] [facility] [address] PROTEIN, TOTAL 6.6 6.0-8.5 ALBUMIN 2.8 L 3.2-5.0 BILIRUBIN, TOTAL 0.6 0.2-1.2 ALKALINE PHOSPHATASE 134 40-150 ALT(SGPT) 13 7-52 AST(SGOT) 18 5-34 FIB-4 SCORE 1.94 <2.67 Dec 06, 2021 12:00 PM [facility] TROPONIN II Sp ecimen Type: PLASMA Comment: Tests performed on [employer] (405) SN:[id number] Ordering Provid er: JELANI SÁNCHEZ Report Released Date/Time: Dec 06, 2021 11:57 AM Reporting Lab: [facility] [address] [facility] [address] Performing Lab: [facility] [address] [facility] [address] TROPONIN II 0.03 0.00-0.29 Dec 06, 2021 [facility] COVID-19+FLU/RSV DIAGNOSTIC Spe cimen Type: NASOPHARYNX 12:00 PM [facility] PANEL(405) Comment: Tests performed on [employer] Genexpert (405) Critical results called to and read back by: ALESHIA WILKINSON RN 12/06/21 @ 1312 Ordering Provid er: JELANI SÁNCHEZ Report Released Date/Time: Dec 06, 2021 11:57 AM Reporting Lab: [facility] [address] [facility] [address] Performing Lab: [place] [facility] [address] [facility] [address] FLU A(PCR) NEGATIVE NEGATIVE FLU B(PCR) NEGATIVE NEGATIVE RSV(PCR) NEGATIVE NEGATIVE COVID-19([id number]) DETECTED HH NO T DETECTED Dec 06, 2021 12:00 PM [facility] Sp ecimen Type: BLOOD No comment enter ed. Ordering Provid er: JELANI SÁNCHEZ Report Released Date/Time: Dec 06, 2021 11:57 AM Reporting Lab: [facility] [address] [facility] [address] Performing Lab: [facility] [address] [facility] [address] WBC 7.2 4.5-11.0 RBC 4.86 4.23-5.66 HGB [...] Dec 09, 0 2021 10:43 [facility] Dec 09, 98.2 F 82 111/58 18 /min 97 % 2021 08:31 /min mm[Hg] [facility] Dec 09, 98.3 F 106 113/69 18 /min 97 % WHITE 2021 02:37 /min mm[Hg] [facility] PM T [facility] Dec 09, 0 2021 11:42 [facility] Dec 09, 97.1 F 94 120/73 16 /min 98 % 0 WHITE 2021 07:40 /min mm[Hg] [facility] Social History: Smoking Status (Most current) and Tobacco Use (All prior to encounter date) This section includes the most current, and the historical, smoking and tobacco-related health factors from the [place] facility where the Encounter took place.Current Smoking Status This section includes the most current smoking, or tobacco-related health factor, from the [place] facility where the Encounter took place. Date/Time Current Smoking Status Comment Facility Dec 06, 2021 11:40 AM QUIT TOBACCO USE > [address] [facility] Tobacco Use History This section includes a history of the smoking, or tobacco- related health factors, that were collected on or before the date of the Encounter. The data comes from the [place] facility where the Encounter took place. Date/Time Smoking Status/Tobacco Use Comment [facility] Apr 01, 2020 01:16 [...] TOBACCO USE IN PAST YEAR CAREY DOYLE [facility] May 01, 2016 03:11 PM QUIT TOBACCO USE IN PAST YEAR [facility]AREY DOYLE [facility] May 01, 2016 11:19 AM QUIT TOBACCO USE IN PAST YEAR CAREY DOYLE [place] [facility] Mar 16, 2016 12:50 PM V1-PT DECLINES REF TO TOBACCO CAREY DOYLE [place] [facility] Mar 16, 2016 12:50 PM V1-PT THINKING ABOUT QUIT CAREY DOYLE [facility] TOBACCO USE Aug 12, 2015 08:48 AM CURRENT SMOKER CAREY Yates [facility] Radiology Reports: +/- 30 days of [...] the Encounter. The data comes from all [place] treatment facilities. Date/Time Radiology Report Provider Source Dec 13, 2021 12:57 PM MRI ABDOMEN W/WO CONTRAST: MARYELLEN LONG LUCAS LARES N [id number] -1950 [facility] Exm Date: DEC 13, 2021@12:57 Req Phys: ISATU TODD Loc: OP Unknown/0 12-15-2021@13:20 Img Loc: MRI IMAGING (OOS) Service: [facility] MED[facility] (Case [id number] COMPLETE) MRI ABDOMEN W/WO CONTRAST (M RI Detailed) CPT:07350 Reason for Study: further characterization of a [...] new lyphadenopathy REQUESTING MD: Isatu Todd PAGER: [phone] PHONE: [phone] Weight: 232.2 lb [105.32 kg] (12/12/2021 05:00) [...] patient will need to arrange for a pizza driver to take him/her home after the [...] 15, 2021 Date Verified: DEC 15, 2021 Communications Operator E-Sig:/ES/MARYELLEN LONG Report: MRI ABDOMEN W/WO [...] MALIGNANCY Primary Interpreting Staff: Staff AMELIA THOMAS (Communications Operator) / Dec 10, 2021 09:[address] ABDOMEN & PELVIS: [facility] LUCAS MEEK N [id number] -1950 M SERVICE [facility] Exm Date: DEC 10, 2021@09:30 Req Phys: ISATU TODD Loc: 1S MED/12-10@10:57 Img Loc: CT SCAN (OOS) Service: [facility] (Case [id number] COMPLETE) CT ABD & PELVIS WITHOUT CONT RAST (CT Detailed) CPT:40606 Reason for Study: 71 yo male with [...] INDEX - NO HEIGHTS FOUND Pager number: [phone] STAT orders MUST be call ed to RADIOLOGY [phone] to speak to the appropriate cooking appliance repair technician. Report Status: Verified Date Reported: DEC 10, 2021 Date Verified: DEC 10, 2021 Communications Operator E-Sig: Report: EXAM: CT abdomen and [...] ph nodes. READING PHYSICIAN: Ramone Munoz D.O. [phone] 12/10/2021 10:55 EDT [facility] National Teleradiology Program [phone] (For Medical Practitioner Use Only ) [address] [facility], [facility] [address], [address] [place] [address] Attention Patients / Veterans: If you have ques tions or concerns about these test results, please contact your o rdering provider or primary care team. Primary Diagnostic Code: SIGNIFICANT ABNORMALIT Y, ATTN NEEDED Primary Interpreting Staff: RADIOLOGY,OUTSIDE SERVICE, Staff Physician / Dec 09, 2021 07:34 AM BASW (MODIFIED): JESSIE CHENEY [facility] LUCAS MEEK N [id number] -1950 M [facility] Exm Date: DEC 09, 2021@07:34 Req Phys: ISATU TODD Loc: 1S MED/12-09@11:26 Img Loc: XRAY (OOS) Service: [facility] MEDICINE (Case [id number] COMPLETE) BASW (MODIFIED) (RAD Detaile d) CPT:35288 Contrast Media : Barium Reason for Study: dysphagia ?esophageal spasm Clinical History: Report Status: Verified Date Reported: DEC 09, 2021 Date Verified: DEC 09, 2021 Communications Operator E-Sig:/ES/JESSIE CHENEY Report: DELISA (MODIFIED) , 12/09/2021 [...] REQUIRED Primary Interpreting Staff: JESSIE CHENEY, RADIOLOGIST (Communications Operator) /TLC Dec 06, 2021 12:[address] CHEST (INCLUDES ADRENALS): JESSIE CHENEY [facility] LUCAS MEEK N [id number] -1950 M [facility] Exm Date: DEC 06, 2021@12:59 Req Phys: JELANI SÁNCHEZ Pat Loc: [facility] ED DAYS M 1RD (Req'g Loc) Img Loc: CT SCAN (OOS) Service: Unknown (Case [id number] COMPLETE) CT THORAX W/O CONT (CT Detai led) CPT:09050 Reason for Study: Opacification right chest Clinical History: No contrast allergy BUN: 13 (12/06/21 12:00) CREATI: 0.90 (12/06/21 12:00) eGFR 05/16/21 09:43 52 L Weight: 232.6 lb [105.51 kg] (12/06/2021 11:40) BODY MASS INDEX - NO HEIGHTS FOUND Pager number: [phone] STAT orders MUST be called t o RADIOLOGY [phone] to speak to the appropriate cooking appliance repair technician. Indications - Other: Opacification right chest, covid positive, lung cancer histo Report Status: Verified Date Reported: DEC 06, 2021 Date Verified: DEC 06, 2021 Communications Operator E-Sig:/ES/JESSIE CHENEY Report: CT THORAX W/O [...] REQUIRED Primary Interpreting Staff: JESSIE CHENEY, RADIOLOGIST (Communications Operator) Primary Interpreting Resident: PRINCE CHAMPION, Resident /ABBI Dec 06, 2021 11:58 AM CHEST SINGLE VIEW: JESSIE CHENEYT LUCAS MEEK N [id number] -1950 M [facility] Exm Date: DEC 06, 2021@11:58 Req Phys: JELANI SÁNCHEZ Pat Loc: [facility] ED DAYS M 1RD (Req'g Loc) Img Loc: XRAY (OOS) Service: Unknown (Case [id number] COMPLETE) CHEST SINGLE VIEW (RAD Detai led) CPT:64229 Proc Modifiers : PORTABLE EXAM Reason for Study: SOB, home covid test positive Clinical History: Report Status: Verified Date Reported: DEC 06, 2021 Date Verified: DEC 06, 2021 Communications Operator E-Sig:/ES/JESSIE CHENEY Report: Exam type: Chest [...] REQUIRED Primary Interpreting Staff: JESSIE CHENEY, RADIOLOGIST (Communications Operator) /TLC Pathology Reports: +/- 30 days [...] the Encounter. The data comes from all [place] treatment facilities. Date/Time Pathology Report Provider Source Jan 03, 2022 10:28 AM LR SURGICAL PATHOLOGY REPORT: STEFANY MILLER [facility] LOCAL TITLE: LR SURGICAL PATHOLOGY REPORT [facility] STANDARD TITLE: PATHOLOGY REPORT DATE OF NOTE: JAN 03, 2022@10:28:01 ENTRY DATE: JAN 03, 2022@10:28:01 AUTHOR: NIURKA MILLER EXP COSIGNER: URGENCY: STATUS: COMPLETED $APHDR Reporting Lab: [facility] [CLIA# [id number]] [address] [place] [address] - - - - - - [...] automatically d ocumented from SURGERY package case #[id number] Field (#32) PRINCIPAL PRE-OP DIAGNOSIS, (#.72) OTHER [...] automatically d ocumented from SURGERY package case #[id number] Field (#34) PRINCIPAL POST-OP DIAG, (#.74) OTHER [...] Label: Lucas Meek Paperwork: Lucas Meek Cassette: [id number];..;KALYANI;.;405;[phone] Specimen is labeled: ES bx Received in formalin are several pieces of pale boyd and brown tissue, 1.2 x 0.7 cm in aggregate. Submitted entirely in 1 cassette [id number];..;KALYANI;.;405;[id number] SAW 12/15/2021 Microscopic exam: *+* MODIFIED REPORT *+* (Last modified: JAN 03, 2022@09:30:20 typed by NIURKA WADDELL) DIAGNOSIS: A. 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 Kendell long. TIARA Coombs was notified on 12/21/21. Modified on 01/03/22 to include report from [facility] stating that tumor is NEGATIVE for her2/ matheus amplification. The attending pathologist who signature mansoor ears on this report has reviewed all diagnostic slides and has edited t he gross and/or microscopic portion of this report in rendering the final pathologic diagnosis. [address] [address] CPT: 32410 /emely/ NIURKA Yeung MD Signed Jan 03, 2022@10:28 Performing Laboratory: Surgical Pathology Report Performed By: CAREY MONTOYA [facility] [CLIA# [id number]] [address] [place] [address] $FTR - - - - - [...] - - LUCAS MEEK STANDARD FORM 515 ID:[id number] SEX:M :1950 AGE: 71 LOC: [facility] END PCP: Isatu Todd /emely/ NIURKA MILLER Staff Signed: 01/03/2022 10:28 Dec 21, 2021 11:46 AM LR SURGICAL PATHOLOGY REPORT: STEFANY MILLER [facility] LOCAL TITLE: LR SURGICAL PATHOLOGY REPORT [facility] STANDARD TITLE: PATHOLOGY REPORT DATE OF NOTE: DEC 21, 2021@11:46:59 ENTRY DATE: DEC 21, 2021@11:46:59 AUTHOR: NIURKA MILLER EXP COSIGNER: URGENCY: STATUS: COMPLETED $APHDR Reporting Lab: [facility] [CLIA# [id number]] [address] [place] [address] - - - - - - [...] automatically d ocumented from SURGERY package case #[id number] Field (#32) PRINCIPAL PRE-OP DIAGNOSIS, (#.72) OTHER [...] automatically d ocumented from SURGERY package case #[id number] Field (#34) PRINCIPAL POST-OP DIAG, (#.74) OTHER [...] Label: Lucas Meek Paperwork: Lucas Meek Cassette: [id number];..;KALYANI;.;405;[phone] Specimen is labeled: ES bx Received in formalin are several pieces of pale boyd and brown tissue, 1.2 x 0.7 cm in aggregate. Submitted entirely in 1 cassette [id number];..;KALYANI;.;405;[id number] SAW 12/15/2021 Microscopic exam: DIAGNOSIS: A. 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 Kendell long. TIARA Coombs was notified on 12/21/21. The attending pathologist who signature mansoor ears on this report has reviewed all diagnostic slides and has edited t he gross and/or microscopic portion of this report in rendering the final pathologic diagnosis. [address] [address] CPT: 94937 /emely/ NIURKA Yeung MD Signed Dec 21, 2021@11:46 Performing Laboratory: Surgical Pathology Report Performed By: [facility] [CLIA# [id number]] [address] [place] [address] $FTR - - - - - [...] - - LUCAS MEEK STANDARD FORM 515 ID:[id number] SEX:M :1950 AGE: 71 LOC: [facility] END PCP: Isatu Todd /emely/ NIURKA Yeugn MD Signed: 12/21/2021 11:46 Dec 06, 2021 03:30 PM LR [facility]OLOGY [facility] Reporting Lab: [facility] [CLIA# [id number]] [address] [place] [address] Accession [UID]: [id number] [[id number]] Receiv ed: Dec 06, 2021@16:14 Collection sample: BLOOD CUL T BOTTLE(NIRMAL/AERO)Collection date: Dec 06, 2021 15:30 Site/Specimen: BLOOD Provider: JELANI SÁNCHEZ Comment on specimen: LAC Test(s) ordered: BLOOD CULTURE ANAEROBI C....... completed: Dec 12, 2021 06:18 * BACTERIOLOGY FINAL REPORT => Dec 12, 2021 06:1 8 TECH CODE: [id number] Bacteriology Remark(s): NO GROWTH IN 5 DAYS =--=--=--=--=--=--=--=--=--=--=--=--=--= --=--=--=--=--=--=--=--=--=--=--=--=-- Performing Laboratory: Bacteriology Report Performed By: [facility] [CLIA# [id number]] [address] [place] [address] Dec 06, 2021 03:30 PM LR MICROBIOLOGY REPORT: [facility] Reporting Lab: [facility] [CLIA# [id number]] [address] [place] [address] Accession [UID]: [id number] [[id number]] Receiv ed: Dec 06, 2021@16:14 Collection sample: BLOOD CUL T BOTTLE(NIRMAL/AERO)Collection date: Dec 06, 2021 15:30 Site/Specimen: BLOOD Provider: JELANI SÁNCHEZ Comment on specimen: LAC Test(s) ordered: BLOOD CULTURE AEROBIC. ........ completed: Dec 12, 2021 06:17 * BACTERIOLOGY FINAL REPORT => Dec 12, 2021 06:1 7 TECH CODE: 36732 Bacteriology Remark(s): NO GROWTH IN 5 DAYS =--=--=--=--=--=--=--=--=--=--=--=--=--= --=--=--=--=--=--=--=--=--=--=--=--=-- Performing Laboratory: Bacteriology Report Performed By: [facility] [CLIA# [id number]] [address] [place] [address]
--- OUTSIDE RECORDS SUMMARY | 2022-01-19 08:33 | XMS_ITS ---
DAILY HOSPITALIZATION DATA C[facility]Y DOYLE [facility] Encounter Summary Created on:December 10, 2021 Patient:LUCAS MEEK Sex:Male :1950 Author Organization [facility] Address [address] [place] [id number] Support Name Relationship Address Phone YUSRA MEEK Unavailable [address] [place] [address] YUSRA MEEK Unavailable [address] [place] [facility] [place] [address] CLAY MOSLEY Unavailable Unavailable SJ SANTACRUZ Unavailable [...] MEDICARE MEDICARE PART Jun 18, PART A [id number] DO KALYANI PATIENT (WNR) (M) A 2016 13A 1 UGLAS MEDICARE MEDICARE PART Jun 18, PART A [id number] DO KALYANI PATIENT (WNR) (M) A 2017 VH81 2 LAS MEDICARE MEDICARE PART Jun 18, PART B [id number] DO KALYANI PATIENT (WNR) (M) B 2016 13A 1 UGLAS MEDICARE MEDICARE PART Jun 18, PART B [id number] DO KALYANI PATIENT (WNR) (M) B 2017 VH81 2 UGLAS UNITED MEDICARE MCR(Jun 18 [id number] Luz MEEK PATIENT HEALTHCARE ADVANTAGE NR) 2021 37 0 [facility] (WNR) Selected Encounter This section includes the information on record at [facility] for the Encounter. Date/Time Encounter Type Encounter Description Reason Provider Source Dec 10, 2021 03:00 Inpatient Visit DAILY HOSPITALIZATION DATA AM [facility] Encounter Template Text not used by [facility] Plan of Treatment: Future Appointments (+ 6 [...] [place] [facility] Jan 10, 2022 11:30 AM AM[facility]ORY - [facility]ICINE [facility] Jan 24, 2022 08:00 AM [place] [facility] Feb 21, 2022 10:00 AM [place]UL[place]ORY [place] [facility] Mar 21, 2022 10:30 AM [...] The data comes from all [facility] treatment [facility]. Test Date/Time Test Type Test Details Facility Name October 31, 2021 07:37 AM Consult Order [facility]ITY [facility]-EGD [facility] Cons [employer] November 15, 2021 10:37 AM Consult Order [facility] CARE-PODIATRY Cons [facility] [employer] [facility] Dec 06, 2021 12:52 PM Pharmacy - [place] Infusion Order [facility] Dec 06, 2021 03:24 PM Pharmacy - [place] [facility] Dec 06, 2021 03:40 PM Pharmacy - [place] Order [facility] Dec 15, 2021 08:41 AM Consult Order SPEECH PATHOLOGY [place] Cons [facility] [employer] Jan 15, 2022 10:08 PM Consult Order [facility] CARE-PALLIATIVE CARE Cons [facility] [employer] [facility] Lab Results: +/- 30 days of [...] Reference Range Comment Dec 15, 2021 [place] P4 GLU,BUN,CREAT,LYTES,CA Speci men Type: PLASMA 06:43 AM [facility] Comment: Tests performed on Ticketbud (405) SN:[id number] Ordering Provid er: ISATU TODD Report Released Date/Time: Dec 11, 2021 07:42 AM Reporting Lab: [facility] T [facility] [address] [facility] [address] Performing Lab: [facility] [address] [facility] [address] UREA NITROGEN 9 7-25 SODIUM 137 135-145 POTASSIUM 3.8 3.5-5.0 CHLORIDE 105 100-110 CARBON DIOXIDE 26 20-30 ANION GAP 6 4-16 GLUCOSE 102 H 65-100 CREATININE 0.64 0.5-1.5 CALCIUM 8.1 L 8.5-10.5 eGFR(CKD-EPI 2020) >90.0 >60 Dec 15, 2021 06:43 AM [facility] CBC PROFILE Sp ecimen Type: BLOOD No comment enter ed. Ordering Provid er: ISATU TODD Report Released Date/Time: Dec 10, 2021 07:22 AM Reporting Lab: [facility] T [facility] [address] [facility] [address] Performing Lab: [facility] [address] [facility] [address] WBC 5.7 4.5-11.0 RBC 4.22 L 4.23-5.66 [...] CYTOGENETIC Specimen Type: ESOPHAGUS 02:59 PM [facility] FISH([facility]) Comment: ~For T est: CYTOGENETIC FISH([facility]) ~FISH HER 2 NUE, FFPE See full report in [employer] Image display viewer/tab#LAB-Reference Ordering Provid er: NIURKA MILLER Report Released Date/Time: Dec 21, 2021 12:11 PM Reporting Lab: [facility] [address] [facility] [address] Performing Lab: [facility] CYTOGENETIC FISH([facility]) comment Dec 14, 2021 [facility] P4 GLU,BUN,CREAT,LYTES,CA Speci men Type: PLASMA 06:27 AM [facility] Comment: Tests performed on Ticketbud (405) SN:[id number] Ordering Provid er: ISATU TODD Report Released Date/Time: Dec 11, 2021 07:42 AM Reporting Lab: [facility] [address] [facility] [address] Performing Lab: [facility] [address] [facility] [address] UREA NITROGEN 10 7-25 SODIUM 137 135-145 POTASSIUM 4.0 3.5-5.0 CHLORIDE 104 100-110 CARBON DIOXIDE 25 20-30 ANION GAP 8 4-16 GLUCOSE 99 65-100 CREATININE 0.67 0.5-1.5 CALCIUM 8.2 L 8.5-10.5 eGFR(CKD-EPI 2020) >90.0 >60 Dec 14, 2021 06:27 AM [facility] CBC PROFILE Sp ecimen Type: BLOOD No comment enter ed. Ordering Provid er: ISATU TODD Report Released Date/Time: Dec 10, 2021 07:22 AM Reporting Lab: [facility] [address] [facility] [address] Performing Lab: [facility] [address] [facility] [address] WBC 6.0 4.5-11.0 RBC 4.29 4.23-5.66 HGB [...] Type: PLASMA 06:34 AM [facility] Comment: Tests performed on Ticketbud (405) SN:[id number] Ordering Provid er: ISATU TODD Report Released Date/Time: Dec 11, 2021 07:42 AM Reporting Lab: [facility] [address] [facility] [address] Performing Lab: [facility] [address] [facility] [address] UREA NITROGEN 12 7-25 SODIUM 136 135-145 POTASSIUM 3.9 3.5-5.0 CHLORIDE 105 100-110 CARBON DIOXIDE 24 20-30 ANION GAP 7 4-16 GLUCOSE 102 H 65-100 CREATININE 0.66 0.5-1.5 CALCIUM 8.3 L 8.5-10.5 eGFR(CKD-EPI 2020) >90.0 >60 Dec 13, 2021 06:34 AM [facility] CBC PROFILE Sp ecimen Type: BLOOD No comment enter ed. Ordering Provid er: ISATU TODD Report Released Date/Time: Dec 10, 2021 07:22 AM Reporting Lab: [facility] [address] [facility] [address] Performing Lab: [facility] [address] [facility] [address] WBC 5.6 4.5-11.0 RBC 4.28 4.23-5.66 HGB [...] Type: PLASMA 06:21 AM [facility] Comment: Tests performed on Ticketbud (405) SN:[id number] Ordering Provid er: ISATU TODD Report Released Date/Time: Dec 11, 2021 07:42 AM Reporting Lab: [facility] [address] [facility] [address] Performing Lab: [facility] [address] [facility] [address] UREA NITROGEN 11 7-25 SODIUM 139 135-145 POTASSIUM 4.1 3.5-5.0 CHLORIDE 107 100-110 CARBON DIOXIDE 24 20-30 ANION GAP 8 4-16 GLUCOSE 110 H 65-100 CREATININE 0.70 0.5-1.5 CALCIUM 8.3 L 8.5-10.5 eGFR(CKD-EPI 2020) >90.0 >60 Dec 12, 2021 06:21 AM [facility] CBC PROFILE Sp ecimen Type: BLOOD No comment enter ed. Ordering Provid er: ISATU TODD Report Released Date/Time: Dec 10, 2021 07:22 AM Reporting Lab: [facility] [address] [facility] [address] Performing Lab: [facility] [address] [facility] [address] WBC 5.5 4.5-11.0 RBC 4.37 4.23-5.66 HGB [...] 0.00 0-0 Dec 12, 2021 06:00 AM [employer]C [employer] [facility] MAGNESIUM Sp ecimen Type: PLASMA Comment: Testin g Performed on Ticketbud (405) SN:[id number] Ordering Provid er: ISATU TODD Report Released Date/Time: Dec 12, 2021 08:24 AM Reporting Lab: [place] [facility] [address] [facility] [address] Performing Lab: [place] [facility] [address] [facility] [address] MAGNESIUM 1.8 1.6-2.6 Dec 12, 2021 06:00 AM 4C [employer] [facility] PHOSPHORUS Sp ecimen Type: PLASMA Comment: Testin g Performed on Ticketbud (405) SN:[id number] Ordering Provid er: ISATU TODD Report Released Date/Time: Dec 12, 2021 08:24 AM Reporting Lab: [place] [facility] [address] [facility] [address] Performing Lab: [place] [facility] [address] [facility] [address] PHOSPHORUS 3.1 2.5-5.0 Dec 11, 2021 06:15 AM [place] [employer] ELECTROLYTES Sp ecimen Type: PLASMA Comment: Tests performed on Ticketbud (405) SN:[id number] Ordering Provid er: ISATU TODD Report Released Date/Time: Dec 10, 2021 07:22 AM Reporting Lab: [place] [facility] [address] [facility] [address] Performing Lab: [place] [facility] [address] [facility] [address] SODIUM 137 135-145 POTASSIUM 4.3 3.5-5.0 CHLORIDE 108 100-110 CARBON DIOXIDE 20 20-30 ANION GAP 9 4-16 Dec 11, 2021 06:15 AM [place] [facility] CBC PROFILE Sp ecimen Type: BLOOD Comment: Result s checked Ordering Provid er: ISATU TODD Report Released Date/Time: Dec 10, 2021 07:22 AM Reporting Lab: [place] [facility] [address] [facility] [address] Performing Lab: [place] OME[facility] [address] [facility] [address] WBC 5.8 4.5-11.0 RBC 4.37 4.23-5.66 HGB [...] 11, 2021 06:00 AM [facility] PHOSPHORUS Sp ecimen Type: PLASMA Comment: Tests performed on Ticketbud (889) SN:[id number] Results checked Ordering Provid er: ISATU TODD Report Released Date/Time: Dec 11, 2021 07:44 AM Reporting Lab: [place] [facility] [address] [facility] [address] Performing Lab: [place] [facility] [address] [facility] [address] PHOSPHORUS 3.0 2.5-5.0 Dec 10, 2021 08:05 AM [place] UREA NITROGEN Specimen Type: PLASMA [facility] Comment: [place] [id number] on Dec 10, 2021@08:31 Tests performed on Ticketbud (405) SN:[id number] Ordering Provid er: ISATU TODD Report Released Date/Time: Dec 10, 2021 07:22 AM Reporting Lab: [place] [facility] [address] [place] [facility] [place] [place] [address] Performing Lab: [place] [facility] [address] [place] [facility] [place] [place] [address] UREA NITROGEN 8 7-25 Dec 10, 2021 08:05 AM [place] [facility] PHOSPHORUS Sp ecimen Type: PLASMA Comment: [place] [id number] on Dec 10, 2021@08:31 Tests performed on Ticketbud (405) SN:[id number] Ordering Provid er: ISATU TODD Report Released Date/Time: Dec 10, 2021 07:22 AM Reporting Lab: [place] [facility] [address] [place] [facility] [place] [place] [address] Performing Lab: [place] [facility] [address] [place] [facility] [place] [place] [address] PHOSPHORUS 1.8 L 2.5-5.0 Dec 10, 2021 08:05 AM [place] [facility] MAGNESIUM Sp ecimen Type: PLASMA Comment: [place] [id number] on Dec 10, 2021@08:31 Tests performed on [employer] Interactive Experience (405) SN:[id number] Ordering Provid er: ISATU TODD Report Released Date/Time: Dec 10, 2021 07:22 AM Reporting Lab: [place] [facility] [address] [place] [facility] [place] [place] [address] Performing Lab: [place] [facility] [address] [place] [facility] [place] [place] [address] MAGNESIUM 1.7 1.6-2.6 Dec 10, 2021 08:05 AM [place] [facility] ELECTROLYTES Sp ecimen Type: PLASMA Comment: [place] [id number] on Dec 10, 2021@08:31 Tests performed on [employer] Experience (405) SN:[id number] Ordering Provid er: ISATU TODD Report Released Date/Time: Dec 10, 2021 07:22 AM Reporting Lab: [place] [facility] [address] [facility] [address] Performing Lab: [place] [facility] [address] [facility] [address] SODIUM 139 135-145 POTASSIUM 3.7 3.5-5.0 CHLORIDE 107 100-110 CARBON DIOXIDE 24 20-30 ANION GAP 8 4-16 Dec 10, 2021 08:05 AM [place] [facility] CALCIUM Sp ecimen Type: PLASMA Comment: [place] [id number] on Dec 10, 2021@08:31 Tests performed on [employer] (405) SN:[id number] Ordering Provid er: ISATU TODD Report Released Date/Time: Dec 10, 2021 07:22 AM Reporting Lab: [place] [facility] [address] [facility] [address] Performing Lab: [place] [facility] [address] [facility] [address] CALCIUM 8.3 L 8.5-10.5 Dec 10, 2021 08:05 AM [place] [facility] GLUCOSE Sp ecimen Type: PLASMA Comment: [place] [id number] on Dec 10, 2021@08:31 Tests performed on [employer] Experience (405) SN:[id number] Ordering Provid er: ISATU TODD Report Released Date/Time: Dec 10, 2021 07:22 AM Reporting Lab: [place] [facility] [address] [facility] [address] Performing Lab: [place] [facility] [address] [facility] [address] GLUCOSE 144 H 65-100 Dec 10, 2021 08:05 [place] CREATININE WITH eGFR Specime n Type: PLASMA AM [facility] PANEL Comment: [place] [id number] on Dec 10, 2021@08:31 Tests performed on [employer] Interactive Experience (405) SN:[id number] Ordering Provid er: ISATU TODD Report Released Date/Time: Dec 10, 2021 07:22 AM Reporting Lab: [place] [facility] [address] [facility] [address] Performing Lab: [place] [facility] [address] [facility] [address] CREATININE 0.78 0.5-1.5 eGFR(CKD-EPI 2020) >90.0 >60 Dec 10, 2021 08:05 AM [facility] CBC PROFILE Sp ecimen Type: BLOOD No comment enter ed. Ordering Provid er: ISATU TODD Report Released Date/Time: Dec 10, 2021 07:22 AM Reporting Lab: [place] OMEGAT [facility] [address] [facility] [address] Performing Lab: [place] [facility] [address] [facility] [address] WBC 7.0 4.5-11.0 RBC 4.54 4.23-5.66 HGB [...] 0.00 0-0 Dec 09, 2021 06:46 AM [facility] MAGNESIUM Sp ecimen Type: PLASMA Comment: Tests performed on Ticketbud (762) SN:[id number] Ordering Provid er: ISATU TODD Report Released Date/Time: Dec 08, 2021 10:23 AM Reporting Lab: [facility] [address] [facility] [address] Performing Lab: [facility] [address] [facility] [address] MAGNESIUM 1.6 1.6-2.6 Dec 09, 2021 [facility] P4 GLU,BUN,CREAT,LYTES,CA Speci men Type: PLASMA 06:46 AM [facility] Comment: Tests performed on Ticketbud (405) SN:[id number] Ordering Provid er: ISATU TODD Report Released Date/Time: Dec 08, 2021 05:00 PM Reporting Lab: [facility] [address] [facility] [address] Performing Lab: [facility] [address] [facility] [address] UREA NITROGEN 6 L 7-25 SODIUM 134 L 135-145 POTASSIUM 3.7 3.5-5.0 CHLORIDE 103 100-110 CARBON DIOXIDE 23 20-30 ANION GAP 8 4-16 GLUCOSE 112 H 65-100 CREATININE 0.70 0.5-1.5 CALCIUM 8.1 L 8.5-10.5 eGFR(CKD-EPI 2020) >90.0 >60 Dec 09, 2021 06:46 AM [facility] CBC PROFILE Sp ecimen Type: BLOOD No comment enter ed. Ordering Provid er: ISATU TODD Report Released Date/Time: Dec 08, 2021 05:00 PM Reporting Lab: [facility] [address] [facility] [address] Performing Lab: [facility] [address] [facility] [address] WBC 7.1 4.5-11.0 RBC 4.40 4.23-5.66 HGB [...] 0.00 0-0 Dec 08, 2021 06:39 AM [place] [employer] T [facility] MAGNESIUM Sp ecimen Type: PLASMA Comment: Testin g Performed on Ticketbud (405) SN:[id number] Ordering Provid er: ISATU TODD Report Released Date/Time: Dec 07, 2021 10:32 AM Reporting Lab: [facility] [address] [facility] [address] Performing Lab: [facility] [address] [facility] [address] MAGNESIUM 1.5 L 1.6-2.6 Dec 08, 2021 [place] [employer] T P4 GLU,BUN,CREAT,LYTES,CA Speci men Type: PLASMA 06:39 AM [facility] Comment: Testin g Performed on Ticketbud (405) SN:[id number] Ordering Provid er: ISATU TODD Report Released Date/Time: Dec 07, 2021 10:32 AM Reporting Lab: [employer] T [facility] [address] [facility] [address] Performing Lab: [facility] [address] [facility] [address] UREA NITROGEN 6 L 7-25 SODIUM 136 135-145 POTASSIUM 3.3 L 3.5-5.0 CHLORIDE 104 100-110 CARBON DIOXIDE 22 20-30 ANION GAP 10 4-16 GLUCOSE 133 H 65-100 CREATININE 0.76 0.5-1.5 CALCIUM 8.4 L 8.5-10.5 eGFR(CKD-EPI 2020) >90.0 >60 Dec 08, 2021 06:39 AM [place] [employer] T [facility] CBC PROFILE Sp ecimen Type: BLOOD No comment enter ed. Ordering Provid er: ISATU TODD Report Released Date/Time: Dec 07, 2021 10:32 AM Reporting Lab: [facility] [address] [facility] [address] Performing Lab: [facility] [address] [facility] [address] WBC 8.4 4.5-11.0 RBC 4.75 4.23-5.66 HGB [...] ABSOLUTE NRBC 0.00 0-0 Dec 07, 2021 [facility] P4 GLU,BUN,CREAT,LYTES,CA Speci men Type: PLASMA 06:42 AM [facility] Comment: Tests performed on Ticketbud (405 SN:[id number] Ordering Provid er: PORFIRIO WALTERS Report Released Date/Time: Dec 06, 2021 06:57 PM Reporting Lab: [facility] [address] [facility] [address] Performing Lab: [facility] [address] [facility] [address] UREA NITROGEN 9 7-25 SODIUM 135 135-145 POTASSIUM 3.5 3.5-5.0 CHLORIDE 103 100-110 CARBON DIOXIDE 22 20-30 ANION GAP 10 4-16 GLUCOSE 92 65-100 CREATININE 0.73 0.5-1.5 CALCIUM 8.0 L 8.5-10.5 eGFR(CKD-EPI 2020) >90.0 >60 Dec 07, 2021 06:42 [place] LIVER PROFILE Specimen Typ e: PLASMA AM [facility] Comment: Tests performed on [employer] (405) SN:[id number] Ordering Provid er: PORFIRIO WALTERS Report Released Date/Time: Dec 06, 2021 06:57 PM Reporting Lab: [facility] [address] [facility] [address] Performing Lab: [facility] [address] [facility] [address] PROTEIN, TOTAL 5.7 L 6.0-8.5 ALBUMIN 2.4 L 3.2-5.0 BILIRUBIN, TOTAL 0.4 0.2-1.2 ALKALINE PHOSPHATASE 109 40-150 ALT(SGPT) 10 7-52 AST(SGOT) 15 5-34 FIB-4 SCORE 1.92 <2.67 Dec 07, 2021 06:42 AM [place] [facility] CBC PROFILE Specimen Type: BLOOD [facility] No comment enter ed. Ordering Provid er: PORFIRIO WALTERS Report Released Date/Time: Dec 06, 2021 06:57 PM Reporting Lab: [facility] [address] [facility] [address] Performing Lab: [facility] [address] [facility] [address] WBC 5.7 4.5-11.0 RBC 4.15 L 4.23-5.66 [...] [facility] %) AUTOMATED Comment: Tests performed on Ticketbud (405) SN:[id number] Ordering Provid er: ISATU TODD Report Released Date/Time: Dec 07, 2021 10:28 AM Reporting Lab: [place] [facility] [address] [facility] [address] Performing Lab: [place] [facility] [address] [facility] [address] RETICULOCYTES (%) AUTOMATED 1.23 0. 6-2.0 RETICULOCYTES (ABS) AUTOMATED 0.052 0.030-0.090 Dec 06, 2021 09:45 [place] MRSA SURVL NARES Specimen Ty pe: NARES PM [facility] DNA No comment enter ed. Ordering Provid er: ALVARO VARGHESE Report Released Date/Time: Dec 07, 2021 02:20 AM Reporting Lab: [place] [facility] [address] [facility] [address] Performing Lab: [place] [facility] [address] [facility] [address] MRSA SURVL NARES DNA NEGATIVE NEGATIVE Dec 06, 2021 06:00 [place] URINALYSIS W/REFLEX TO Speci men Type: URINE PM [facility] CULTURE No comment enter ed. Ordering Provid er: JELANI SÁNCHEZ Report Released Date/Time: Dec 06, 2021 11:57 AM Reporting Lab: [place] [facility] [address] [facility] [address] Performing Lab: [place] [facility] [address] [facility] [address] URINE COLOR Arlin YELLOW SPECIFIC GRAVITY 1.029 [...] 21, [place] VARIANT Comment: https://www.cdc.gov/coronavirus/2019-ncov/cases-updates/variant- surveillance/variant-info.html The I Just Shared SARS CoV 2 [employer] Research Assay-GX is a next-generation sequencing (NGS) assa 2021 [facility] SEQUENCING y that determine s the complete genome sequence of the SARS-CoV-2 virus. The assay contains variant-tolerant primers to broaden and improve the coverage for variant detection and increase the sensitivity 12:00 [facility] PNL(WH) of the panel to enable detection from lower viral titer samples. The assay is run on the Sp[employer]Foot Sequencer, which performs automated library preparation, sequencing, analysis, and reporting. PM The sequence an alysis includes determination of viral phylogenetic lineage by comparison to the reference strain Wuhan-Hu-1, GenBank: [id number]. Sequence determination may not be possible owing [...] Dec 06, 2021 01:13 PM Reporting Lab: [facility] [address] [facility] [address] Performing Lab: [facility] [address] [place] [address] SARS-CoV-2 CLADE() 22C (OMICRON) SARS-CoV-2 LINEAGE() BA.2.12.1 Dec 06, 2021 12:00 [facility] COVID-19 AG SCREEN Specimen Type: NASAL CAVITY PM [facility] PANEL BINAX(405) Comment: Testi ng Performed By: Mike Briscoe Ordering Provid er: JELANI SÁNCHEZ Report Released Date/Time: Dec 08, 2021 08:23 AM Reporting Lab: [facility] [address] [facility] [address] Performing Lab: [facility] [address] [facility] [address] COVID-19 AG SCRN(wrj BINAX) POSITIVE HH NE G Dec 06, 2021 12:00 PM [facility] LIVER PROFILE Sp ecimen Type: PLASMA Comment: Testin g Performed on [employer] (405) SN:[id number] Ordering Provid er: JELANI SÁNCHEZ Report Released Date/Time: Dec 06, 2021 11:57 AM Reporting Lab: [facility] [address] [facility] [address] Performing Lab: [facility] [address] [facility] [address] PROTEIN, TOTAL 6.6 6.0-8.5 ALBUMIN 2.8 L 3.2-5.0 BILIRUBIN, TOTAL 0.6 0.2-1.2 ALKALINE PHOSPHATASE 134 40-150 ALT(SGPT) 13 7-52 AST(SGOT) 18 5-34 FIB-4 SCORE 1.94 <2.67 Dec 06, 2021 [facility] P4 GLU,BUN,CREAT,LYTES,CA Speci men Type: PLASMA 12:00 PM [facility] Comment: Testin g Performed on [employer] (405) SN:[id number] Ordering Provid er: JELANI SÁNCHEZ Report Released Date/Time: Dec 06, 2021 11:57 AM Reporting Lab: [place] [facility] [address] [facility] [address] Performing Lab: [place] [facility] [address] [facility] [address] UREA NITROGEN 13 7-25 SODIUM 138 135-145 POTASSIUM 3.8 3.5-5.0 CHLORIDE 103 100-110 CARBON DIOXIDE 23 20-30 ANION GAP 12 4-16 GLUCOSE 105 H 65-100 CREATININE 0.90 0.5-1.5 CALCIUM 8.7 8.5-10.5 eGFR(CKD-EPI 2020) >90.0 >60 Dec 06, 2021 12:00 PM [facility] BNP(P) Sp ecimen Type: PLASMA Comment: Tests performed on [employer] (405) [id number] Ordering Provid er: JELANI SÁNCHEZ Report Released Date/Time: Dec 06, 2021 11:57 AM Reporting Lab: [facility] [address] [facility] [address] Performing Lab[facility] [address] [facility] [address] BNP(P) 224.8 H 10-100 Dec 06, 2021 12:00 PM [facility] TROPONIN II Sp ecimen Type: PLASMA Comment: Tests performed on [employer] (405) [id number] Ordering Provid er: JELANI SÁNCHEZ Report Released Date/Time: Dec 06, 2021 11:57 AM Reporting Lab: [facility] [address] [facility] [address] Performing Lab: [facility] [address] [facility] [address] TROPONIN II 0.03 0.00-0.29 Dec 06, 2021 [facility] COVID-19+FLU/RSV DIAGNOSTIC Spe cimen Type: NASOPHARYNX 12:00 PM [facility] PANEL(405) Comment: Tests performed on [employer] (405) Critical results called to and read back by: ALESHIA WILKINSON RN 12/06/21 @ 1312 Ordering Provid er: JELANI SÁNCHEZ Report Released Date/Time: Dec 06, 2021 11:57 AM Reporting Lab: [facility] [address] [facility] [address] Performing Lab: [place] [facility] [address] [facility] [address] FLU A(PCR) NEGATIVE NEGATIVE FLU B(PCR) NEGATIVE NEGATIVE RSV(PCR) NEGATIVE NEGATIVE COVID-19(BTO-lwe-KVWQVMAMD) DETECTED HH NO T DETECTED Dec 06, 2021 12[facility] ecimen Type: BLOOD No comment enter ed. Ordering Provid er: JELANI SÁNCHEZ Report Released Date/Time: Dec 06, 2021 11:57 AM Reporting Lab: [facility] [address] [address] Performing Lab: [facility] [facility] [address] [facility] [address] WBC 7.2 4.5-11.0 RBC 4.86 4.23-5.66 HGB [...] dy Source Pressure Rate Mass Index Dec 10, 98.6 F 94 122/75 18 /min 97 % 0 [place] 2021 09:00 /min mm[Hg] RIVER PM T [facility] Dec 10, 0 [place] 2021 08:57 RIVER PM T [facility] Dec 10, 0 WHITE 2021 04:17 RIVER PM T [facility] Dec 10, 97.8 F 93 125/74 20 /min 95 % 0 [place] 2021 01:40 /min mm[Hg] RIVER PM T [facility] Dec 10, 231.9 32 [place] 2021 10:22 lb RIVER AM [facility] Social History: Smoking Status (Most current) [...] QUIT TOBACCO USE > 7 YEARS AGO [facility] Tobacco Use History This section includes a history of the smoking, or tobacco- related health factors, that were collected on or before the date of the Encounter. The data comes from the [place] facility where the Encounter took place. Date/Time Smoking Status/Tobacco Use Comment [facility] Apr 01, 2020 01:16 PM QUIT TOBACCO USE 1-7 YEARS AGO [facility] Mar 24, 2020 03:00 PM QUIT TOBACCO USE 1-7 YEARS AGO [facility] Feb 21, 2019 04:11 PM QUIT TOBACCO USE 1-7 YEARS AGO [facility] Feb 20, 2019 03:38 PM QUIT TOBACCO USE 1-7 YEARS AGO [facility] Feb 03, 2019 09:50 AM QUIT TOBACCO USE 1-7 YEARS AGO [facility] May 25, 2016 11:53 PM QUIT TOBACCO USE IN PAST YEAR [facility] May 23, 2016 06:57 PM QUIT TOBACCO USE > 7 YEARS AGO [facility] May 19, 2016 03:55 PM QUIT TOBACCO USE IN PAST YEAR [facility] May 19, 2016 10:29 AM QUIT TOBACCO USE 1-7 YEARS AGO [facility] May 01, 2016 07:26 PM QUIT TOBACCO USE IN PAST YEAR [facility] May 01, 2016 03:11 PM QUIT TOBACCO USE IN PAST YEAR CAREY DOYLE [facility] May 01, 2016 11:19 AM QUIT TOBACCO USE IN PAST YEAR CAREY DOYLE [facility] Mar 16, 2016 12:50 PM V1-PT DECLINES REF TO TOBACCO CAREY DOYLE [facility] CESS [facility] Mar 16, 2016 12:50 PM V1-PT THINKING ABOUT QUIT CAREY DOYLE [facility] TOBACCO USE Aug 12, 2015 08:48 AM CURRENT SMOKER CAREY Yates [facility] Radiology Reports: +/- 30 days of [...] comes from all [place] treatment facilities. Date/Time Radiology Report Provider Source Dec 13, 2021 12:57 PM MRI ABDOMEN W/WO CONTRAST: MARYELLEN LONG LUCAS LARES N [id number] -1950 [facility] Exm Date: DEC 13, 2021@12:57 Req Phys: ISATU TODD Loc: OP Unknown/0 12-15-2021@13:20 Img Loc: MRI IMAGING (OOS) Service: [facility] MEDICINE (Case [id number] COMPLETE) MRI ABDOMEN W/WO CONTRAST (M RI Detailed) CPT:95341 Reason for Study: further characterization of a [...] new lyphadenopathy REQUESTING MD: Isatu Todd PAGER: [phone] PHONE: [phone] Weight: 232.2 lb [105.32 kg] (12/12/2021 05:00) [...] patient will need to arrange for a rental car ferry driver to take him/her home after the [...] 15, 2021 Date Verified: DEC 15, 2021 Monogram Operator E-Sig:/ES/MARYELLEN LONG Report: MRI ABDOMEN W/WO [...] MALIGNANCY Primary Interpreting Staff: Staff AMELIA THOMAS (Monogram Operator) / Dec 10, 2021 09:[address] ABDOMEN & PELVIS: RADIOLOGY,OUTSIDE [facility] [place] LUCAS MEEK N [id number] -1950 M SERVICE [facility] Exm Date: DEC 10, 2021@09:30 Req Phys: ISATU TODD Loc: MED/12-10@10:57 Img Loc: CT SCAN (OOS) Service: [facility] MEDICINE (Case [id number] COMPLETE) CT ABD & PELVIS WITHOUT CONT RAST (CT Detailed) CPT:75079 Reason for Study: 71 yo male with [...] RADIOLOGY [phone] to speak to the appropriate manufacturing process technician. Report Status: Verified Date Reported: DEC 10, 2021 Date Verified: DEC 10, 2021 Monogram Operator E-Sig: Report: EXAM: CT abdomen and [...] ph nodes. READING PHYSICIAN: Ramone Munoz D.O. [phone] 12/10/2021 10:55 EDT [facility] National Teleradiology Program [phone] (For Medical Practitioner Use Only ) [address], [facility] [address] [place] [address] Attention Patients / Veterans: If you have ques tions or concerns about these test results, please contact your [facility] or primary care team. Primary Diagnostic Code: SIGNIFICANT ABNORMALIT Y, ATTN NEEDED Primary Interpreting Staff: RADIOLOGY,OUTSIDE SERVICE, Staff Physician / Dec 09, 2021 07:34 AM BASW (MODIFIED): JESSIE CHENEY [facility] LUCAS MEEK N [id number] -1950 M [facility] Exm Date: DEC 09, 2021@07:34 Req Phys: ISATU TODD Loc: 1S MED/12-09@11:26 Img Loc: XRAY (OOS) Service: [facility] MEDICINE (Case [id number] COMPLETE) BASW (MODIFIED) (RAD Detaile d) CPT:19936 Contrast Media : Barium Reason for Study: dysphagia ?esophageal spasm Clinical History: Report Status: Verified Date Reported: DEC 09, 2021 Date Verified: DEC 09, 2021 Monogram Operator E-Sig:/ES/JESSIE CHENEY Report: BASW (MODIFIED) , [...] REQUIRED Primary Interpreting Staff: JESSIE CHENEY, RADIOLOGIST (Monogram Operator) /TLC Dec 06, 2021 12:[address] CHEST (INCLUDES ADRENALS): JESSIE CHENEY [facility] LUCAS MEEK N [id number] -1950 M [facility] Exm Date: DEC 06, 2021@12:59 Req Phys: GONZALOJELANI Loc: [facility] ED DAYS M 1RD (Req'g Loc) Img Loc: CT SCAN (OOS) Service: Unknown (Case [id number] COMPLETE) CT THORAX W/O CONT (CT Detai led) CPT:35557 Reason for Study: Opacification right chest Clinical History: No contrast allergy BUN: 13 (12/06/21 12:00) CREATI: 0.90 (12/06/21 12:00) eGFR 05/16/21 09:43 52 L Weight: 232.6 lb [105.51 kg] (12/06/2021 11:40) BODY MASS INDEX - NO HEIGHTS FOUND Pager number: [phone] STAT orders MUST be called t o RADIOLOGY [phone] to speak to the appropriate manufacturing process technician. Indications - Other: Opacification right chest, covid positive, lung cancer histo Report Status: Verified Date Reported: DEC 06, 2021 Date Verified: DEC 06, 2021 Monogram Operator E-Sig:/ES/JESSIE CHENEY Report: CT THORAX W/O [...] REQUIRED Primary Interpreting Staff: JESSIE CHENEY, RADIOLOGIST (Monogram Operator) Primary Interpreting Resident: PRINCE CHAMPION, Resident /BR Dec 06, 2021 11:58 AM CHEST SINGLE VIEW: JESSIE CHENEY DOUGLAS N [id number] -1950 M [facility] Exm Date: DEC 06, 2021@11:58 Req Phys: JELANI SÁNCHEZ Pat Loc: [facility] ED DAYS M 1RD (Req'g Loc) Img Loc: XRAY (OOS) Service: Unknown (Case [id number] COMPLETE) CHEST SINGLE VIEW (RAD Detai led) CPT:91473 Proc Modifiers : PORTABLE EXAM Reason for Study: SOB, home covid test positive Clinical History: Report Status: Verified Date Reported: DEC 06, 2021 Date Verified: DEC 06, 2021 Monogram Operator E-Sig:/ES/JESSIE CHENEY Report: Exam type: Chest [...] REQUIRED Primary Interpreting Staff: JESSIE CHENEY, RADIOLOGIST (Monogram Operator) /TLC Pathology Reports: +/- 30 days [...] LR SURGICAL PATHOLOGY REPORT [facility] STANDARD TITLE: PATHOLOGY REPORT DATE OF NOTE: JAN 03, 2022@10:28:01 ENTRY DATE: JAN 03, 2022@10:28:01 AUTHOR: NIURKA MILLER EXP COSIGNER: URGENCY: STATUS: COMPLETED $APHDR Reporting Lab: CAREY MONTOYA [facility] [CLIA# [id number]] [address] [place] [address] - - - - - - [...] automatically d ocumented from SURGERY package case #[id number] Field (#32) PRINCIPAL PRE-OP DIAGNOSIS, (#.72) OTHER [...] automatically d ocumented from SURGERY package case #[id number] Field (#34) PRINCIPAL POST-OP DIAG, (#.74) OTHER [...] Label: Lucas Meek Paperwork: Lucas Meek Cassette: [id number];..;KALYANI;.;405;[phone] Specimen is labeled: ES bx Received in formalin are several pieces of pale boyd and brown tissue, 1.2 x 0.7 cm in aggregate. Submitted entirely in 1 cassette [id number];..;KALYANI;.;405;[id number] SAW 12/15/2021 Microscopic exam: *+* MODIFIED REPORT *+* (Last modified: JAN 03, 2022@09:30:20 typed by NIURKA WADDELL) DIAGNOSIS: A. 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 Kendell long. TIARA Coombs was notified on 12/21/21. Modified on 01/03/22 to include report from [facility] stating that tumor is NEGATIVE for her2/ matheus amplification. The attending pathologist who signature mansoor ears on this report has reviewed all diagnostic slides and has edited t he gross and/or microscopic portion of this report in rendering the final pathologic diagnosis. [address] [address] CPT: 23817 /emely/ NIURKA Yeung MD Signed Jan 03, 2022@10:28 Performing Laboratory: Surgical Pathology Report Performed By: CAREY MONTOYA [facility] [CLIA# [id number]] [address] [place] [address] $FTR - - - - - [...] - - LUCAS MEEK STANDARD FORM 515 ID:[id number] SEX:M :1950 AGE: 71 LOC: SDM END PCP: Isatu Todd /emely/ NIURKA MILLER Staff Signed: 01/03/2022 10:28 Dec 21, 2021 11:46 AM LR SURGICAL PATHOLOGY REPORT: STEFANY MILLER [facility] LOCAL TITLE: LR SURGICAL PATHOLOGY REPORT [facility] STANDARD TITLE: PATHOLOGY REPORT DATE OF NOTE: DEC 21, 2021@11:46:59 ENTRY DATE: DEC 21, 2021@11:46:59 AUTHOR: NIURKA MILLER EXP COSIGNER: URGENCY: STATUS: COMPLETED $APHDR Reporting Lab: [facility] [CLIA# [id number]] [address] [place] [facility] [place] [address] - - - - - - [...] automatically d ocumented from SURGERY package case #[id number] Field (#32) PRINCIPAL PRE-OP DIAGNOSIS, (#.72) OTHER [...] automatically d ocumented from SURGERY package case #[id number] Field (#34) PRINCIPAL POST-OP DIAG, (#.74) OTHER [...] Label: Lucas Meek Paperwork: Lucas Meek Cassette: [phone];..;KALYANI;.;495;[phone] Specimen is labeled: ES bx Received in formalin are several pieces of pale boyd and brown tissue, 1.2 x 0.7 cm in aggregate. Submitted entirely in 1 cassette [id number];..;KALYANI;.;405;[id number] SAW 12/15/2021 Microscopic exam: DIAGNOSIS: A. 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 Kendell long. TIARA Coombs was notified on 12/21/21. The attending pathologist who signature mansoor ears on this report has reviewed all diagnostic slides and has edited t he gross and/or microscopic portion of this report in rendering the final pathologic diagnosis. [address] [address] CPT: 04418 /emely/ NIURKA Yeung MD Signed Dec 21, 2021@11:46 Performing Laboratory: Surgical Pathology Report Performed By: [facility] [CLIA# [id number]] [address] [place] [address] $FTR - - - - - [...] - - LUCAS MEEK STANDARD FORM 515 ID:[id number] SEX:M :1950 AGE: 71 LOC: [facility] END PCP: Isatu Todd /charmaine Yeung MD Signed: 12/21/2021 11:46 Dec 06, 2021 03:30 PM LR MICROBIOLOGY REPORT: [facility] Reporting Lab: [facility] [CLIA# [id number]] [address] [place] [address] Accession [UID]: [id number] [[id number]] Receiv ed: Dec 06, 2021@16:14 Collection sample: BLOOD CUL T BOTTLE(NIRMAL/AERO)Collection date: Dec 06, 2021 15:30 Site/Specimen: BLOOD Provider: JELANI SÁNCHEZ Comment on specimen: LAC Test(s) ordered: BLOOD CULTURE ANAEROBI C....... completed: Dec 12, 2021 06:18 * BACTERIOLOGY FINAL REPORT => Dec 12, 2021 06:1 8 TECH CODE: [id number] Bacteriology Remark(s): NO GROWTH IN 5 DAYS =--=--=--=--=--=--=--=--=--=--=--=--=--= --=--=--=--=--=--=--=--=--=--=--=--=-- Performing Laboratory: Bacteriology Report Performed By: [facility] [CLIA# [id number]] [address] [place] [address] Dec 06, 2021 03:30 PM LR MICROBIOLOGY REPORT: [facility] Reporting Lab: [facility] [CLIA# [id number]] [address] [place] [address] Accession [UID]: [id number] [[id number]] Receiv ed: Dec 06, 2021@16:14 Collection sample: BLOOD CUL T BOTTLE(NIRMAL/AERO)Collection date: Dec 06, 2021 15:30 Site/Specimen: BLOOD Provider: JELANI SÁNCHEZ Comment on specimen: LAC Test(s) ordered: BLOOD CULTURE AEROBIC. ........ completed: Dec 12, 2021 06:17 * BACTERIOLOGY FINAL REPORT => Dec 12, 2021 06:1 7 TECH CODE: [id number] Bacteriology Remark(s): NO GROWTH IN 5 DAYS =--=--=--=--=--=--=--=--=--=--=--=--=--= --=--=--=--=--=--=--=--=--=--=--=--=-- Performing Laboratory: Bacteriology Report Performed By: [facility] [CLIA# [id number]] [address] [place] [address]
--- OUTSIDE RECORDS SUMMARY | 2022-01-19 08:33 | XMS_ITS ---
DAILY HOSPITALIZATION DATA [facility] Encounter Summary Created on:December 10, 2021 Patient:LUCAS MEEK Sex:Male :1950 Author Organization [facility] Address [address] [place] [id number] Support Name Relationship Address Phone YUSRA MEEK Unavailable [address] [place] [address] YUSRA MEEK Unavailable [address] [place] [address] CLAY MOSLEY Unavailable Unavailable SJ SANTACRUZ Unavailable [...] MEDICARE MEDICARE PART Jun 18, PART A [id number] DO KALYANI PATIENT (WNR) (M) A 2016 13A 1 U[place]AS MEDICARE MEDICARE PART Jun 18, PART B [id number] DO KALYANI PATIENT (WNR) (M) B 2016 13A 1 [place] MEDICARE MEDICARE PART Jun 18, PART A [id number] KALYANIDO PATIENT (WNR) (M) A 2017 VH81 2 [place] MEDICARE MEDICARE PART Jun 18, PART B [id number] DO KALYANI PATIENT (WNR) (M) B 2017 VH81 2 [place] UNITED MEDICARE MCR(Jun [id number] Luz MEEK PATIENT HEALTHCARE ADVANTAGE NR) 2021 37 0 [facility] (WNR) Selected Encounter This section includes the information on record at [place] for the Encounter. Date/Time Encounter Type Encounter Description Reason Provider Source Dec 10, 2021 08:21 Inpatient Visit DAILY HOSPITALIZATION DATA AM [facility] Encounter Template Text not used by [...] - [place] [facility] Jan 10, 2022 11:30 AM AMBULATORY - MEDICINE [facility] Jan 24, 2022 08:00 AM [place] [facility] Feb 21, 2022 10:00 AM [place] [facility] Mar 21, [...] The data comes from all [place] treatment [facility]. Test Date/Time Test Type Test Details Facility Name October 31, 2021 07:37 AM Consult Order [facility]ITY CARE-EGD [facility] Cons Rn Wound Care's Choice November 15, 2021 10:37 AM Consult Order [facility] CARE-PODIATRY Cons Rn Wound Care's Choice Dec 06, 2021 12:52 PM [place] In[place] Order [facility] Dec 06, 2021 03:24 PM [place]acy [place] [facility] Dec 06, 2021 03:40 PM [place]acy [place] [facility] Dec 15, 2021 08:41 AM Consult Order SPEECH PATHOLOGY [place] OUTPAT[place] Cons [facility] Rn Wound Care's Choice Jan 15, 2022 10:08 PM Consult Order [facility] CARE-PALLIATIVE CARE Cons Rn Wound Care's Choice Lab Results: +/- 30 days of [...] Reference Range Comment Dec 15, 2021 [place] P4 GLU,BUN,CREAT,LYTES,CA Speci men Type: PLASMA 06:43 AM [facility] Comment: Tests performed on [email or web address] (405) SN:[id number] Ordering Provid er: ISATU TODD Report Released Date/Time: Dec 11, 2021 07:42 AM Reporting Lab: [facility] T [facility] [address] [facility] [address] Performing Lab: [facility] [address] [facility] [address] UREA NITROGEN 9 7-25 SODIUM 137 135-145 POTASSIUM 3.8 3.5-5.0 CHLORIDE 105 100-110 CARBON DIOXIDE 26 20-30 ANION GAP 6 4-16 GLUCOSE 102 H 65-100 CREATININE 0.64 0.5-1.5 CALCIUM 8.1 L 8.5-10.5 eGFR(CKD-EPI 2020) >90.0 >60 Dec 15, 2021 06:43 AM [facility] CBC PROFILE Sp ecimen Type: BLOOD No comment enter ed. Ordering Provid er: ISATU TODD Report Released Date/Time: Dec 10, 2021 07:22 AM Reporting Lab: [facility] T [facility] [address] [facility] [address] Performing Lab: [facility] [address] [facility] [address] WBC 5.7 4.5-11.0 RBC 4.22 L 4.23-5.66 [...] ABSOLUTE NRBC 0.00 0-0 Dec 14, 2021 [facility] CYTOGENETIC Specimen Type: ESOPHAGUS 02:59 PM [facility] FISH([facility]) Comment: ~For T est: CYTOGENETIC FISH([facility]) ~FISH HER 2 NUE, FFPE See full report in Active Endpoints Image display viewer/tab#LAB-Reference Ordering Provid er: NIURKA MILLER Report Released Date/Time: Dec 21, 2021 12:11 PM Reporting Lab: [facility] [address] [facility] [address] Performing Lab: [facility] CYTOGENETIC FISH([facility]) comment Dec 14, 2021 [facility] P4 GLU,BUN,CREAT,LYTES,CA Speci men Type: PLASMA 06:27 AM [facility] Comment: Tests performed on Dropost.it (405) SN:[id number] Ordering Provid er: ISATU TODD Report Released Date/Time: Dec 11, 2021 07:42 AM Reporting Lab: [facility] [address] [facility] [address] Performing Lab: [facility] [address] [facility] [address] UREA NITROGEN 10 7-25 SODIUM 137 135-145 [...] AM Reporting Lab: [facility] [address] [facility] [address] Performing Lab: [facility] [address] [facility] [address] WBC 6.0 4.5-11.0 RBC 4.29 4.23-5.66 HGB [...] ABSOLUTE NRBC 0.00 0-0 Dec 13, 2021 [facility] P4 GLU,BUN,CREAT,LYTES,CA Speci men Type: PLASMA 06:34 AM [facility] Comment: Tests performed on Dropost.it (405) SN:[id number] Ordering Provid er: ISATU TODD Report Released Date/Time: Dec 11, 2021 07:42 AM Reporting Lab: [facility] [address] [facility] [address] Per[facility]: [facility] [address] [facility] [address] UREA NITROGEN 12 7-25 SODIUM 136 135-145 [...] AM Reporting Lab: [facility] [address] [facility] [address] Performing Lab: [facility] [address] [facility] [address] WBC 5.6 4.5-11.0 RBC 4.28 4.23-5.66 HGB [...] ABSOLUTE NRBC 0.00 0-0 Dec 12, 2021 [facility] P4 GLU,BUN,CREAT,LYTES,CA Speci men Type: PLASMA 06:21 AM [facility] Comment: Tests performed on Dropost.it (405) SN:[id number] Ordering Provid er: ISATU TODD Report Released Date/Time: Dec 11, 2021 07:42 AM Reporting Lab: [facility] [address] [facility] [address] Performing Lab: [facility] [address] [facility] [address] UREA NITROGEN 11 7-25 SODIUM 139 135-145 [...] 10, 2021 07:22 AM Reporting Lab: [facility] [address] [facility] [address] Performing Lab: [facility] [address] [facility] [address] WBC 5.5 4.5-11.0 RBC 4.37 4.23-5.66 HGB [...] 0.00 0-0 Dec 12, 2021 06:00 AM [employer] [facility] MAGNESIUM Sp ecimen Type: PLASMA Comment: Testin g Performed on Dropost.it (405) SN:[id number] Ordering Provid er: ISATU TODD Report Released Date/Time: Dec 12, 2021 08:24 AM Reporting Lab: [place] [employer] [address] [facility] [address] Performing Lab: [facility] [facility] MiNameMROC [address] [facility] [address] MAGNESIUM 1.8 1.6-2.6 Dec 12, 2021 06:00 AM [employer] MiNameMR[facility] PHOSPHORUS Sp ecimen Type: PLASMA Comment: Testin g Performed on Dropost.it (405) SN:[id number] Ordering Provid er: ISATU TODD Report Released Date/Time: Dec 12, 2021 08:24 AM Reporting Lab: [facility] [employer] [address] [facility] [address] Performing Lab: [place] [facility] MiNameMR[facility] [address] [facility] [address] PHOSPHORUS 3.1 2.5-5.0 Dec 11, 2021 06:15 AM [place] [employer]T MiNameMROC ELECTROLYTES Sp ecimen Type: PLASMA Comment: Tests performed on Dropost.it (405) SN:[id number] Ordering Provid er: ISATU TODD Report Released Date/Time: Dec 10, 2021 07:22 AM Reporting Lab: [facility] [address] [facility] [address] Performing Lab: [facility] [facility] [address] [facility] [address] SODIUM 137 135-145 POTASSIUM 4.3 3.5-5.0 CHLORIDE 108 100-110 CARBON DIOXIDE 20 20-30 ANION GAP 9 4-16 Dec 11, 2021 06:15 AM [place] [employer] CBC PROFILE Sp ecimen Type: BLOOD Comment: Result s checked Ordering Provid er: ISATU TODD Report Released Date/Time: Dec 10, 2021 07:22 AM Reporting Lab: [facility] [facility] [address] [facility] [address] Performing Lab: [place] OME[facility] [address] [facility] [address] WBC 5.8 4.5-11.0 RBC 4.37 4.23-5.66 HGB [...] 0-0 Dec 11, 2021 06:00 AM [facility] PHOSPHORUS Sp ecimen Type: PLASMA Comment: Tests performed on Dropost.it (883) SN:[id number] Results checked Ordering Provid er: ISATU TODD Report Released Date/Time: Dec 11, 2021 07:44 AM Reporting Lab: [facility] [address] [facility] [address] Performing Lab: [place] OMEGAT NDMROC [address] [facility] [address] PHOSPHORUS 3.0 2.5-5.0 Dec 10, 2021 08:05 AM [place] [facility] MAGNESIUM Sp ecimen Type: PLASMA Comment: [place] [id number] on Dec 10, 2021@08:31 Tests performed on Dropost.it (405) SN:[id number] Ordering Provid er: ISATU TODD Report Released Date/Time: Dec 10, 2021 07:22 AM Reporting Lab: [place] [facility] [address] [place] [facility] [place] [address] Performing Lab: [place] [facility] [address] [place] [facility] [place] [address] MAGNESIUM 1.7 1.6-2.6 Dec 10, 2021 08:05 AM [place] [facility] PHOSPHORUS Sp ecimen Type: PLASMA Comment: [place] [id number] on Dec 10, 2021@08:31 Tests performed on Dropost.it (405) SN:[id number] Ordering Provid er: ISATU TODD Report Released Date/Time: Dec 10, 2021 07:22 AM Reporting Lab: [place] [facility] [address] [place] [facility] [place] [address] Performing Lab: [place] [facility] [address] [place] [facility] [place] [address] PHOSPHORUS 1.8 L 2.5-5.0 Dec 10, 2021 08:05 AM [place] UREA NITROGEN Specimen Type: PLASMA [facility] Comment: [place] [id number] on Dec 10, 2021@08:31 Tests performed on Dropost.it (405) SN:[id number] Ordering Provid er: ISATU TODD Report Released Date/Time: Dec 10, 2021 07:22 AM Reporting Lab: [place] [facility] [address] [place] [facility] [place] [address] Performing Lab: [place] [facility] [address] [place] [facility] [place] [address] UREA NITROGEN 8 7-25 Dec 10, 2021 08:05 AM [place] [facility] GLUCOSE Sp ecimen Type: PLASMA Comment: [place] [id number] on Dec 10, 2021@08:31 Tests performed on Dropost.it (405) SN:[id number] Ordering Provid er: ISATU TODD Report Released Date/Time: Dec 10, 2021 07:22 AM Reporting Lab: [place] [facility] [address] [facility] [address] Performing Lab: [place] [facility] [address] [facility] [address] GLUCOSE 144 H 65-100 Dec 10, 2021 08:05 AM [place] [facility] ELECTROLYTES Sp ecimen Type: PLASMA Comment: [place] [id number] on Dec 10, 2021@08:31 Tests performed on Dropost.it (405) SN:[id number] Ordering Provid er: ISATU TODD Report Released Date/Time: Dec 10, 2021 07:22 AM Reporting Lab: [place] [facility] [address] [facility] [address] Performing Lab: [place] [facility] [address] [facility] [address] SODIUM 139 135-145 POTASSIUM 3.7 3.5-5.0 CHLORIDE 107 100-110 CARBON DIOXIDE 24 20-30 ANION GAP 8 4-16 Dec 10, 2021 08:05 [place] CREATININE WITH eGFR Specime n Type: PLASMA AM [facility] PANEL [place]: [place] [id number] on Dec 10, 2021@08:31 Tests performed on [employer]am [employer] (405) SN:[id number] Ordering Provid er: ISATU TODD Report Released Date/Time: Dec 10, 2021 07:22 AM Reporting Lab: [place] [facility] [address] [facility] [address] Performing Lab: [place] [facility] [address] [facility] [address] CREATININE 0.78 0.5-1.5 eGFR(CKD-EPI 2020) >90.0 >60 Dec 10, 2021 08:05 AM [place] [facility] CBC PROFILE Sp ecimen Type: BLOOD No comment enter ed. Ordering Provid er: ISATU TODD Report Released Date/Time: Dec 10, 2021 07:22 AM Reporting Lab: [place] [facility] [address] [facility] [address] Performing Lab: [place] [facility] [address] [facility] [address] WBC 7.0 4.5-11.0 RBC 4.54 4.23-5.66 HGB [...] 0.00 0-0 Dec 10, 2021 08:05 AM [facility] CALCIUM Sp ecimen Type: PLASMA Comment: [place] [id number] on Dec 10, 2021@08:31 Tests performed on Dropost.it (405) SN:[id number] Ordering Provid er: ISATU TODD Report Released Date/Time: Dec 10, 2021 07:22 AM Reporting Lab: [facility] [address] [facility] [address] Performing Lab: [facility] [address] [facility] [address] CALCIUM 8.3 L 8.5-10.5 Dec 09, 2021 06:46 AM [place] [employer] MAGNESIUM Sp ecimen Type: PLASMA Comment: Tests performed on Dropost.it (405) SN:[id number] Ordering Provid er: ISATU TODD Report Released Date/Time: Dec 08, 2021 10:23 AM Reporting Lab: [facility] [address] [facility] [address] Performing Lab: [facility] [address] [facility] [address] MAGNESIUM 1.6 1.6-2.6 Dec 09, 2021 [facility] P4 GLU,BUN,CREAT,LYTES,CA Speci men Type: PLASMA 06:46 AM [facility] Comment: Tests performed on Dropost.it (405) SN:[id number] Ordering Provid er: ISATU TODD Report Released Date/Time: Dec 08, 2021 05:00 PM Reporting Lab: [facility] [address] [facility] [address] Performing Lab: [facility] [address] [facility] [address] UREA NITROGEN 6 L 7-25 SODIUM 134 L 135-145 POTASSIUM 3.7 3.5-5.0 CHLORIDE 103 100-110 CARBON DIOXIDE 23 20-30 ANION GAP 8 4-16 GLUCOSE 112 H 65-100 CREATININE 0.70 0.5-1.5 CALCIUM 8.1 L 8.5-10.5 eGFR(CKD-EPI 2020) >90.0 >60 Dec 09, 2021 06:46 AM [facility] CBC PROFILE Sp ecimen Type: BLOOD No comment enter ed. Ordering Provid er: ISATU TODD Report Released Date/Time: Dec 08, 2021 05:00 PM Reporting Lab: [facility] [address] [facility] [address] Performing Lab: [facility] [address] [facility] [address] WBC 7.1 4.5-11.0 RBC 4.40 4.23-5.66 HGB [...] 0.00 0-0 Dec 08, 2021 06:39 AM [place] [employer] T [facility] MAGNESIUM Sp ecimen Type: PLASMA Comment: Testin g Performed on Dropost.it (405) SN:[id number] Ordering Provid er: ISATU TODD Report Released Date/Time: Dec 07, 2021 10:32 AM Reporting Lab: [facility] [address] [facility] [address] Performing Lab: [facility] [address] [facility] [address] MAGNESIUM 1.5 L 1.6-2.6 Dec 08, 2021 [place] [employer] T P4 GLU,BUN,CREAT,LYTES,CA Speci men Type: PLASMA 06:39 AM [facility] Comment: Testin g Performed on Dropost.it (405) SN:[id number] Ordering Provid er: ISATU TODD Report Released Date/Time: Dec 07, 2021 10:32 AM Reporting Lab: [employer] T [facility] [address] [facility] [address] Performing Lab: [facility] [address] [facility] [address] UREA NITROGEN 6 L 7-25 SODIUM 136 135-145 POTASSIUM 3.3 L 3.5-5.0 CHLORIDE 104 100-110 CARBON DIOXIDE 22 20-30 ANION GAP 10 4-16 GLUCOSE 133 H 65-100 CREATININE 0.76 0.5-1.5 CALCIUM 8.4 L 8.5-10.5 eGFR(CKD-EPI 2020) >90.0 >60 Dec 08, 2021 06:39 AM [place] [employer] T [facility] CBC PROFILE Sp ecimen Type: BLOOD No comment enter ed. Ordering Provid er: ISATU TODD Report Released Date/Time: Dec 07, 2021 10:32 AM Reporting Lab: [facility] [address] [facility] [address] Performing Lab: [facility] [address] [facility] WBC 8.4 4.5-11.0 RBC 4.75 4.23-5.66 [...] NRBC 0.00 0-0 Dec 07, 2021 06:42 [facility] LIVER PROFILE Specimen Typ e: PLASMA AM [facility] Comment: Tests performed on Dropost.it (405 SN:[id number] Ordering Provid er: PORFIRIO WALTERS Report Released Date/Time: Dec 06, 2021 06:57 PM Reporting Lab: [facility] [address] [facility] [address] Performing Lab: [facility] [address] [facility] [address] PROTEIN, TOTAL 5.7 L 6.0-8.5 ALBUMIN 2.4 L 3.2-5.0 BILIRUBIN, TOTAL 0.4 0.2-1.2 ALKALINE PHOSPHATASE 109 40-150 ALT(SGPT) 10 7-52 AST(SGOT) 15 5-34 FIB-4 SCORE 1.92 <2.67 Dec 07, 2021 [facility] GLU,BUN,CREAT,LYTES,CA Speci men Type: PLASMA 06:42 AM [facility] Comment: Tests performed on Dropost.it (405) SN:[id number] Ordering Provid er: PORFIRIO WALTERS Report Released Date/Time: Dec 06, 2021 06:57 PM Reporting Lab: [place] [facility] [address] [facility] [address] Performing Lab: [place] [facility] [address] [facility] [address] UREA NITROGEN 9 7-25 SODIUM 135 135-145 POTASSIUM 3.5 3.5-5.0 CHLORIDE 103 100-110 CARBON DIOXIDE 22 20-30 ANION GAP 10 4-16 GLUCOSE 92 65-100 CREATININE 0.73 0.5-1.5 CALCIUM 8.0 L 8.5-10.5 eGFR(CKD-EPI 2020) >90.0 >60 Dec 07, 2021 06:42 AM [place] CBC PROFILE Specimen Type: [facility]OD [facility] No comment enter ed. Ordering Provid er: PORFIRIO WALTERS Report Released Date/Time: Dec 06, 2021 06:57 PM Reporting Lab: [place] [facility] [address] [facility] [address] Performing Lab: [facility] [address] [facility] [address] WBC 5.7 4.5-11.0 RBC 4.15 L 4.23-5.66 [...] [facility]AM[facility] %) AUTOMATED Comment: Tests performed on Dropost.it (405) SN:[id number] Ordering Provid er: ISATU TODD Report Released Date/Time: Dec 07, 2021 10:28 AM Reporting Lab: [place] [facility] [address] [facility] [address] Performing Lab: [place] [facility] [address] [facility] [address] RETICULOCYTES (%) AUTOMATED 1.23 0. 6-2.0 RETICULOCYTES (ABS) AUTOMATED 0.052 0.030-0.090 Dec 06, 2021 09:45 [place] MRSA SURVL NARES Specimen Ty pe: NARES PM [facility] DNA No comment enter ed. Ordering Provid er: ALVARO VARGHESE Report Released Date/Time: Dec 07, 2021 02:20 AM Reporting Lab: [place] [facility] [address] [facility] [address] Performing Lab: [place] [facility] [address] [facility] [address] MRSA SURVL NARES DNA NEGATIVE NEGATIVE Dec 06, 2021 06:00 [place] URINALYSIS W/REFLEX TO Speci men Type: URINE PM [facility] CULTURE No comment enter ed. Ordering Provid er: JELANI SÁNCHEZ Report Released Date/Time: Dec 06, 2021 11:57 AM Reporting Lab: [place] [facility] [address] [facility] [address] Performing Lab: [place] [facility] [address] [facility] [address] URINE COLOR Arlin YELLOW SPECIFIC GRAVITY 1.029 [...] 21, R[place] VARIANT Comment: https://www.cdc.gov/coronavirus/2019-ncov/cases-updates/variant- surveillance/variant-info.html The Chomp SARS CoV 2 [employer] Research Assay-GX is a next-generation sequencing (NGS) assa 2021 [facility] SEQUENCING y that determine s the complete genome sequence of the SARS-CoV-2 virus. The assay contains variant-tolerant primers to broaden and improve the coverage for variant detection and increase the sensitivity 12:00 [facility] PNL(WH) of the panel to enable detection from lower viral titer samples. The assay is run on the [employer]ights Sequencer, which performs automated library preparation, sequencing, analysis, and reporting. PM The sequence an alysis includes determination of viral phylogenetic lineage by comparison to the reference strain Wuhan-Hu-1, GenBank: [id number]. Sequence determination may not be possible owing [...] 06, 2021 01:13 PM Reporting Lab: [facility] [address] [facility] [address] Performing Lab: [facility] [address] [facility] [address] SARS-CoV-2 CLADE() 22C (OMICRON) SARS-CoV-2 LINEAGE() BA.2.12.1 Dec 06, 2021 12:00 [facility] COVID-19 AG SCREEN Specimen Type: NASAL CAVITY PM [facility] PANEL BINAX(405) Comment: Testi ng Performed By: Mike Briscoe Ordering Provid er: JELANI SÁNCHEZ Report Released Date/Time: Dec 08, 2021 08:23 AM Reporting Lab: [facility] [address] [facility] [address] Performing Lab: [facility] [address] [facility] [address] COVID-19 AG SCRN(wrj BINAX) POSITIVE HH NE G Dec 06, 2021 12:00 PM [facility] TROPONIN II Sp ecimen Type: PLASMA Comment: Tests performed on [employer] (405) SN:[id number] Ordering Provid er: JELANI SÁNCHEZ Report Released Date/Time: Dec 06, 2021 11:57 AM Reporting Lab: [facility] [address] [place] [facility] [place] [place] [address] Performing Lab: [facility] [address] [facility] [address] TROPONIN II 0.03 0.00-0.29 Dec 06, 2021 12:00 PM [facility] LIVER PROFILE Sp ecimen Type: PLASMA Comment: Testin g Performed on [employer] (405) SN:[id number] Ordering Provid er: JELANI SÁNCHEZ Report Released Date/Time: Dec 06, 2021 11:57 AM Reporting Lab: [facility] [address] [facility] [address] Performing Lab: [facility] [address] [facility] [address] PROTEIN, TOTAL 6.6 6.0-8.5 ALBUMIN 2.8 L 3.2-5.0 BILIRUBIN, TOTAL 0.6 0.2-1.2 ALKALINE PHOSPHATASE 134 40-150 ALT(SGPT) 13 7-52 AST(SGOT) 18 5-34 FIB-4 SCORE 1.94 <2.67 Dec 06, 2021 [place] P4 GLU,BUN,CREAT,LYTES,CA Speci men Type: PLASMA 12:00 PM [facility] Comment: Testin g Performed on [employer] (405) SN:[id number] Ordering Provid er: JELANI SÁNCHEZ Report Released Date/Time: Dec 06, 2021 11:57 AM Reporting Lab: [place] [facility] [address] [facility] [address] Performing Lab: [facility] [facility] [address] [facility] [address] UREA NITROGEN 13 7-25 SODIUM 138 135-145 POTASSIUM 3.8 3.5-5.0 CHLORIDE 103 100-110 CARBON DIOXIDE 23 20-30 ANION GAP 12 4-16 GLUCOSE 105 H 65-100 CREATININE 0.90 0.5-1.5 CALCIUM 8.7 8.5-10.5 eGFR(CKD-EPI 2020) >90.0 >60 Dec 06, 2021 12:00 [facility] BNP(P[facility] Sp ecimen Type: PLASMA Comment: Tests performed on [employer] (405) SN:[id number] Ordering Provid er: JELANI SÁNCHEZ Report Released Date/Time: Dec 06, 2021 11:57 AM Reporting Lab: [place] [facility] [address] [facility] [address] Performing Lab: [facility] [facility] [address] [facility] [address] BNP(P) 224.8 H 10-100 Dec 06, 2021 [place] COVID-19+FLU/RSV DIAGNOSTIC Spe cimen Type: NASOPHARYNX 12:00 PM [facility] PANEL(405) Comment: Tests performed on ETHERAxpert (405) Critical results called to and read back by: ALESHIA WILKINSON RN 12/06/21 @ 1312 Ordering Provid er: JELANI SÁNCHEZ Report Released Date/Time: Dec 06, 2021 11:57 AM Reporting Lab: [facility] [address] [facility] [address] Performing Lab: [place] [facility] [address] [facility] [address] FLU A(PCR) NEGATIVE NEGATIVE FLU B(PCR) NEGATIVE NEGATIVE RSV(PCR) NEGATIVE NEGATIVE COVID-19([id number]) DETECTED HH NO T DETECTED Dec 06, 2021 12:[facility] Sp ecimen Type: BLOOD No comment enter ed. Ordering Provid er: JELANI SÁNCHEZ Report Released Date/Time: Dec 06, 2021 11:57 AM Reporting Lab: [facility] [address] [facility] [address] Performing Lab: [facility] [address] [facility] [address] WBC 7.2 4.5-11.0 RBC 4.86 4.23-5.66 HGB [...] 94 122/75 18 /min 97 % 0 [place] 2021 09:00 /min mm[Hg] [facility] PM T [facility] Dec 10, 0 [place] 2021 08:57 [facility] PM T [facility] Dec 10, 0 [place] 2021 04:17 [facility] PM T [facility] Dec 10, 97.8 F 93 125/74 20 /min 95 % 0 [place] 2021 01:40 /min mm[Hg] R[facility] PM T [facility] Dec 10, 231.9 32 [place] 2021 10:22 lb RIVER AM [facility] Social History: Smoking Status (Most current) and [...] took place. Date/Time Smoking Status/Tobacco Use Comment [facility] Apr 01, 2020 01:16 PM QUIT [...] USE IN PAST YEAR [facility] May 19, 2016 10:29 AM QUIT TOBACCO USE 1-7 YEARS AGO [facility] May 01, 2016 07:26 PM QUIT [facility] May 01, 2016 03:11 PM QUIT TOBACCO USE IN PAST YEAR [facility] May 01, 2016 11:19 AM QUIT TOBACCO USE IN PAST YEAR [facility] Mar 16, 2016 12:50 PM V1-PT DECLINES REF TO TOBACCO [facility] CESS PRGM Mar 16, 2016 12:50 PM V1-PT THINKING ABOUT QUIT [facility] TOBACCO USE Aug 12, 2015 08:48 AM CURRENT SMOKER [facility] Radiology Reports: +/- 30 days of the [...] W/WO CONTRAST: MARYELLEN LONG LUCAS LARES N [id number] -1950 [facility] Exm Date: DEC 13, 2021@12:57 Req Phys: ISATU TODD Loc: OP Unknown/0 12-15-2021@13:20 Img Loc: MRI IMAGING (OOS) Service: [facility] MEDICINE (Case [id number] COMPLETE) MRI ABDOMEN W/WO CONTRAST (M RI Detailed) CPT:86675 Reason for Study: further characterization of a [...] new lyphadenopathy REQUESTING MD: Isatu Todd PAGER: [phone] PHONE: [phone] Weight: 232.2 lb [105.32 kg] (12/12/2021 05:00) [...] THE PATIENT HAVE ANY OF THE FOLLOWING ADYA PRATIBHA OR ITEMS? 1. Does the patient [...] patient will need to arrange for a vending route driver to take him/her home after [...] 15, 2021 Date Verified: DEC 15, 2021 Whipped Topping Supervisor E-Sig:/ES/MARYELLEN LONG Report: MRI ABDOMEN W/WO [...] MALIGNANCY Primary Interpreting Staff: Staff AMELIA THOMAS (Whipped Topping Supervisor) / Dec 10, 2021 09:[address] ABDOMEN & PELVIS: RADIOLOGY,OUTSIDE [facility] [place] LUCAS MEEK N [id number] -1950 M SERVICE [facility] Exm Date: DEC 10, 2021@09:30 Req Phys: ISATU TODD Loc: MED/12-10@10:57 Img Loc: CT SCAN (OOS) Service: [facility] MEDICINE (Case [id number] COMPLETE) CT ABD & PELVIS WITHOUT CONT RAST (CT Detailed) CPT:26779 Reason for Study: 71 yo male with [...] RADIOLOGY [phone] to speak to the appropriate predictive maintenance technician. Report Status: Verified Date Reported: DEC 10, 2021 Date Verified: DEC 10, 2021 Whipped Topping Supervisor E-Sig: Report: EXAM: CT abdomen and [...] ph nodes. READING PHYSICIAN: Ramone Munoz D.O. [phone] 12/10/2021 10:55 EDT [facility] National Teleradiology Program [phone] (For Medical Practitioner Use Only ) [address] [facility], [facility] [address] [place] [address] Attention Patients / Veterans: If you have ques tions or concerns about these test results, please contact [facility] or primary care team. Primary Diagnostic Code: SIGNIFICANT ABNORMALIT Y, ATTN NEEDED Primary Interpreting Staff: RADIOLOGY,OUTSIDE SERVICE, Staff Physician / Dec 09, 2021 07:34 AM BASW (MODIFIED): JESSIE CHENEY [facility] LUCAS MEEK N [id number] -1950 M [facility] Exm Date: DEC 09, 2021@07:34 Req Phys: ISATU TODD Loc: 1S MED/12-09@11:26 Img Loc: XRAY (OOS) Service: [facility] MEDICINE (Case [id number] COMPLETE) BASW (MODIFIED) (RAD Detaile d) CPT:07027 Contrast Media : Barium Reason for Study: dysphagia ?esophageal spasm Clinical History: Report Status: Verified Date Reported: DEC 09, 2021 Date Verified: DEC 09, 2021 Whipped Topping Supervisor E-Sig:/ES/JESSIE CHENEY Report: BASW (MODIFIED) , 12/09/2021 [...] REQUIRED Primary Interpreting Staff: JESSIE CHENEY, RADIOLOGIST (Whipped Topping Supervisor) /TLC Dec 06, 2021 12:[address] CHEST (INCLUDES ADRENALS): JESSIE CHENEY [facility] LUCAS MEEK N [id number] -1950 M [facility] Exm Date: DEC 06, 2021@12:59 Req Phys: GONZALOJELANI Loc: [facility] ED DAYS M 1RD (Req'g Loc) Img Loc: CT SCAN (OOS) Service: Unknown (Case [id number] COMPLETE) CT THORAX W/O CONT (CT Detai led) CPT:51607 Reason for Study: Opacification right chest Clinical History: No contrast allergy BUN: 13 (12/06/21 12:00) CREATI: 0.90 (12/06/21 12:00) eGFR 05/16/21 09:43 52 L Weight: 232.6 lb [105.51 kg] (12/06/2021 11:40) BODY MASS INDEX - NO HEIGHTS FOUND Pager number: [phone] STAT orders MUST be called t o RADIOLOGY [phone] to speak to the appropriate predictive maintenance technician. Indications - Other: Opacification right chest, covid positive, lung cancer histo Report Status: Verified Date Reported: DEC 06, 2021 Date Verified: DEC 06, 2021 Whipped Topping Supervisor E-Sig:/ES/JESSIE CHENEY Report: CT THORAX W/O [...] REQUIRED Primary Interpreting Staff: JESSIE CHENEY, RADIOLOGIST (Whipped Topping Supervisor) Primary Interpreting Resident: PRINCE CHAMPION, Resident /BR Dec 06, 2021 11:58 AM CHEST SINGLE VIEW: JESSIE CHENEY DOUGLAS N [id number] -1950 M [facility] Exm Date: DEC 06, 2021@11:58 Req Phys: JELANI SÁNCHEZ Pat Loc: [facility] ED DAYS M 1RD (Req'g Loc) Img Loc: XRAY (OOS) Service: Unknown (Case [id number] COMPLETE) CHEST SINGLE VIEW (RAD Detai led) CPT:54258 Proc Modifiers : PORTABLE EXAM Reason for Study: SOB, home covid test positive Clinical History: Report Status: Verified Date Reported: DEC 06, 2021 Date Verified: DEC 06, 2021 Whipped Topping Supervisor E-Sig:/ES/JESSIE CHENEY Report: Exam type: Chest [...] REQUIRED Primary Interpreting Staff: JESSIE CHENEY, RADIOLOGIST (Whipped Topping Supervisor) /TLC Pathology Reports: +/- 30 days [...] MILLER LOCAL TITLE: LR SURGICAL PATHOLOGY REPORT [facility] STANDARD TITLE: PATHOLOGY REPORT DATE OF NOTE: JAN 03, 2022@10:28:01 ENTRY DATE: JAN 03, 2022@10:28:01 AUTHOR: NIURKA MILLER EXP COSIGNER: URGENCY: STATUS: COMPLETED $APHDR Reporting Lab: [facility] [CLIA# [id number]] [address] [place] [address] - - - - - - [...] automatically d ocumented from SURGERY package case #[id number] Field (#32) PRINCIPAL PRE-OP DIAGNOSIS, (#.72) OTHER [...] automatically d ocumented from SURGERY package case #[id number] Field (#34) PRINCIPAL POST-OP DIAG, (#.74) OTHER [...] Label: Lucas Meek Paperwork: Lucas Meek Cassette: [id number];..;KALYANI;.;405;[phone] Specimen is labeled: ES bx Received in formalin are several pieces of pale boyd and brown tissue, 1.2 x 0.7 cm in aggregate. Submitted entirely in 1 cassette [id number];..;KALYANI;.;405;[id number] SAW 12/15/2021 Microscopic exam: *+* MODIFIED REPORT [...] report in rendering the final pathologic diagnosis. [address] [address] CPT: 94876 /emely/ NIURKA Yeung MD Signed Jan 03, 2022@10:28 Performing Laboratory: Surgical Pathology Report Performed By: [facility] [CLIA# [id number]] [address] [place] [address] $FTR - - - - - [...] - - LUCAS MEEK STANDARD FORM 515 ID:[id number] SEX:M :1950 AGE: 71 LOC: SDM END PCP: Isatu Todd /emely/ NIURKA MILLER Staff Signed: 01/03/2022 10:28 Dec 21, 2021 11:46 AM LR SURGICAL PATHOLOGY REPORT: STEFANY MILLER [facility] LOCAL TITLE: LR SURGICAL PATHOLOGY REPORT [facility] STANDARD TITLE: PATHOLOGY REPORT DATE OF NOTE: DEC 21, 2021@11:46:59 ENTRY DATE: DEC 21, 2021@11:46:59 AUTHOR: NIURKA MILLER EXP COSIGNER: URGENCY: STATUS: COMPLETED $APHDR Reporting Lab: [facility] [CLIA# [id number]] [address] [place] [facility] [place] [address] - - - - - - [...] automatically d ocumented from SURGERY package case #[id number] Field (#32) PRINCIPAL PRE-OP DIAGNOSIS, (#.72) OTHER [...] automatically d ocumented from SURGERY package case #[id number] Field (#34) PRINCIPAL POST-OP DIAG, (#.74) OTHER [...] Label: Lucas Meek Paperwork: Lucas Meek Cassette: [id number];..;KALYANI;.;793;[id number] Specimen is labeled: ES bx Received in formalin are several pieces of pale boyd and brown tissue, 1.2 x 0.7 cm in aggregate. Submitted entirely in 1 cassette [id number];..;KALYANI;.;405;[phone] SAW 12/15/2021 Microscopic exam: DIAGNOSIS: A. 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 Kendell long. TIARA Coombs was notified on 12/21/21. The attending pathologist who signature mansoor ears on this report has reviewed all diagnostic slides and has edited t he gross and/or microscopic portion of this report in rendering the final pathologic diagnosis. [address] [address] CPT: 00423 /emely/ NIURKA Yeung MD Signed Dec 21, 2021@11:46 Performing Laboratory: Surgical Pathology Report Performed By: [facility] [CLIA# [id number]] [address] [place] [address] $FTR - - - - - [...] - - LUCAS MEEK STANDARD FORM 515 ID:[id number] SEX:M :1950 AGE: 71 LOC: [facility] END PCP: Isatu Todd /charmaine Yeung MD Signed: 12/21/2021 11:46 Dec 06, 2021 03:30 PM LR MICROBIOLOGY REPORT: [facility] Reporting Lab: [facility] [CLIA# [id number]] [address] [place] [address] Accession [UID]: [id number] [[id number]] Receiv ed: Dec 06, 2021@16:14 Collection sample: BLOOD CUL T BOTTLE(NIRMAL/AERO)Collection date: Dec 06, 2021 15:30 Site/Specimen: BLOOD Provider: JELANI SÁNCHEZ Comment on specimen: LAC Test(s) ordered: BLOOD CULTURE ANAEROBI C....... completed: Dec 12, 2021 06:18 * BACTERIOLOGY FINAL REPORT => Dec 12, 2021 06:1 8 TECH CODE: [id number] Bacteriology Remark(s): NO GROWTH IN 5 DAYS =--=--=--=--=--=--=--=--=--=--=--=--=--= --=--=--=--=--=--=--=--=--=--=--=--=-- Performing Laboratory: Bacteriology Report Performed By: [facility] [CLIA# [id number]] [address] [place] [address] Dec 06, 2021 03:30 PM LR MICROBIOLOGY REPORT: [facility] Reporting Lab: [facility] [CLIA# [id number]] [address] [place] [address] Accession [UID]: [id number] [[id number]] Receiv ed: Dec 06, 2021@16:14 Collection sample: BLOOD CUL T BOTTLE(NIRMAL/AERO)Collection date: Dec 06, 2021 15:30 Site/Specimen: BLOOD Provider: JELANI SÁNCHEZ Comment on specimen: LAC Test(s) ordered: BLOOD CULTURE AEROBIC. ........ completed: Dec 12, 2021 06:17 * BACTERIOLOGY FINAL REPORT => Dec 12, 2021 06:1 7 TECH CODE: [id number] Bacteriology Remark(s): NO GROWTH IN 5 DAYS =--=--=--=--=--=--=--=--=--=--=--=--=--= --=--=--=--=--=--=--=--=--=--=--=--=-- Performing Laboratory: Bacteriology Report Performed By: [facility] [CLIA# [id number]] [address] [place] [address]
--- OUTSIDE RECORDS SUMMARY | 2022-01-19 08:34 | XMS_ITS | Encounter Summary ---
:1950 Author Organization [facility] rs Address [address] [place] [address] Support Name Relationship Address Phone YUSRA AUGUSTE Unavailable [address] [place] [address] YUSRA AUGUSTE Unavailable [address] [place] [address] CLAY MOSLEY Unavailable Unavailable SJ SANTACRUZ Unavailable [...] MEDICARE MEDICARE PART Jun 18, PART A [id number] DO KALYANI PATIENT (WNR) (M) A 2016 13A 1 [place]AS MEDICARE MEDICARE PART Jun 18, PART B [id number] DO KALYANI PATIENT (WNR) (M) B 2016 13A 1 [place] MEDICARE MEDICARE PART Jun 18, PART A [id number] DO KALYANI PATIENT (WNR) (M) A 2017 VH81 2 [place] MEDICARE MEDICARE PART Jun 18, PART B [id number] DO KALYANI PATIENT (WNR) (M) B 2017 VH81 2 LAS [employer] MEDICARE MCR(W Jun 18 [id number] Luz AUGUSTE PATIENT HEALTHCARE ADVANTAGE NR) 2021 37 0 [facility] (WNR) Selected Encounter This section includes the information on record at ID for the Encounter. Date/Time Encounter Type Encounter Description Reason Provider Source IHE Encounter Template Text not used by [facility]
--- OUTSIDE RECORDS SUMMARY | 2022-01-19 08:34 | XMS_ITS ---
DAILY HOSPITALIZATION DATA [facility] DOYLE [facility] Encounter Summary Created on:December 10, 2021 Patient:LUCAS MEEK Sex:Male :1950 Author Organization [facility] Address [address] [place] [id number] Support Name Relationship Address Phone YUSRA MEEK Unavailable [address] [place] [address] YUSRA MEEK Unavailable [address] [place] [facility] [place] [address] CLAY MOSLEY Unavailable Unavailable SJ SANTACRUZ Unavailable [...] MEDICARE MEDICARE PART Jun 18, PART A [id number] DO KALYANI PATIENT (WNR) (M) A 2016 13A 1 UGLAS MEDICARE MEDICARE PART Jun 18, PART A [id number] DO KALYANI PATIENT (WNR) (M) A 2017 VH81 2 LAS MEDICARE MEDICARE PART Jun 18, PART B [id number] DO KALYANI PATIENT (WNR) (M) B 2016 13A 1 UGLAS MEDICARE MEDICARE PART Jun 18, PART B [id number] DO KALYANI PATIENT (WNR) (M) B 2017 VH81 2 UGLAS UNITED MEDICARE MCR(Jun 18 [id number] Luz MEEK PATIENT HEALTHCARE ADVANTAGE NR) 2021 37 0 [facility] (WNR) Selected Encounter This section includes the information on record at [place] for the Encounter. Date/Time Encounter Type Encounter Description Reason Provider Source Dec 10, 2021 08:22 Inpatient Visit DAILY HOSPITALIZATION DATA AM [facility] Encounter Template Text not used by [place] Plan of Treatment: Future Appointments (+ 6 months) and Future Tests (+/- 45 days) The Plan of Treatment section includes future care activities for the patient from all [place] treatmentfacilities. This section includes future appointments and future orders which are active, pending orscheduled.Future Appointments This section includes appointments that were scheduled to occur 6 months from the date of the Encounter, up to a maximum of 20 appointments. The data comes from all [place] treatment facilities. Appointment Date/Time Appointment Type Appointment Facili ty Name Dec 21, 2021 08:00 AM AMB[place] [facility] Jan 06, 2022 02:00 PM [place] [facility] Jan 10, 2022 11:30 AM AMBULATORY - MEDICINE [facility] Jan 24, 2022 08:00 AM [place] [facility] Feb 21, 2022 10:00 AM [place]UL[place] [facility] Mar 21, 2022 10:30 AM AMBULATORY [...] the Encounter. The data comes from all [place] treatment [facility]. Test Date/Time Test Type Test Details Facility Name October 31, 2021 07:37 AM Consult Order [facility] Cons [facility] November 15, 2021 10:37 AM Consult Order [facility] CARE-PODIATRY Cons [facility] Dec 06, 2021 12:52 PM Pharmacy [place] Infusion Order [facility] Dec 06, 2021 03:24 PM Pharmacy [place] [facility] Dec 06, 2021 03:40 PM Pharmacy [place] Order [facility] Dec 15, 2021 08:41 AM Consult Order SPEECH PATHOLOGY [place] OUTPATIENT Cons [facility] Jan 15, 2022 10:08 PM Consult Order [facility] CARE-PALLIATIVE CARE Cons [facility] Lab Results: +/- 30 days of [...] Reference Range Comment Dec 15, 2021 [place] P4 GLU,BUN,CREAT,LYTES,CA Speci men Type: PLASMA 06:43 AM [facility] Comment: Tests performed on Photoways (405) SN:[id number] Ordering Provid er: ISATU TODD Report Released Date/Time: Dec 11, 2021 07:42 AM Reporting Lab: [facility] T [facility] [address] [facility] [address] Performing Lab: [facility] [address] [facility] [address] UREA NITROGEN 9 7-25 SODIUM 137 135-145 [...] [facility] [address] [facility] [address] Performing Lab: [facility] [address] [facility] [address] WBC 5.7 4.5-11.0 RBC 4.22 L 4.23-5.66 [...] Specimen Type: ESOPHAGUS 02:59 PM [facility] FISH([facility]) Comment: ~For T est: CYTOGENETIC FISH([facility]) ~FISH HER 2 NUE, FFPE See full report in NXTM Image display viewer/tab#LAB-Reference Ordering Provid er: NIURKA MILLER Report Released Date/Time: Dec 21, 2021 12:11 PM Reporting Lab: [facility] [address] [facility] [address] Performing Lab: [facility] CYTOGENETIC FISH([facility]) comment Dec 14, 2021 [facility] P4 GLU,BUN,CREAT,LYTES,CA Speci men Type: PLASMA 06:27 AM [facility] Comment: Tests performed on Photoways (405) SN:[id number] Ordering Provid er: ISATU TODD Report Released Date/Time: Dec 11, 2021 07:42 AM Reporting Lab: [facility] [address] [facility] [address] Performing Lab: [facility] [address] [facility] [address] UREA NITROGEN 10 7-25 SODIUM 137 135-145 [...] Lab: [facility] [address] [facility] [address] Performing Lab: [facility] [address] [facility] [address] WBC 6.0 4.5-11.0 RBC 4.29 4.23-5.66 HGB [...] ABSOLUTE NRBC 0.00 0-0 Dec 13, 2021 [facility] P4 GLU,BUN,CREAT,LYTES,CA Speci men Type: PLASMA 06:34 AM [facility] Comment: Tests performed on Photoways (405) SN:[id number] Ordering Provid er: ISATU TODD Report Released Date/Time: Dec 11, 2021 07:42 AM Reporting Lab: [facility] [address] [facility] [address] Performing Lab: [facility] [address] [facility] [address] UREA NITROGEN 12 7-25 SODIUM 136 135-145 [...] Lab: [facility] [address] [facility] [address] Performing Lab: [facility] [address] [facility] [address] WBC 5.6 4.5-11.0 RBC 4.28 4.23-5.66 HGB [...] ABSOLUTE NRBC 0.00 0-0 Dec 12, 2021 [facility] P4 GLU,BUN,CREAT,LYTES,CA Speci men Type: PLASMA 06:21 AM [facility] Comment: Tests performed on Photoways (405) SN:[id number] Ordering Provid er: ISATU TODD Report Released Date/Time: Dec 11, 2021 07:42 AM Reporting [facility]: [facility] [address] [facility] [address] Per[facility]: [facility] [address] [facility] [address] UREA NITROGEN 11 7-25 SODIUM 139 135-145 [...] Dec 10, 2021 07:22 AM Reporting Lab: [facility] [address] [facility] [address] Performing Lab: [facility] [address] [facility] [address] WBC 5.5 4.5-11.0 RBC 4.37 4.23-5.66 HGB [...] 0.00 0-0 Dec 12, 2021 06:00 AM AudioCaseFilesT [facility] MAGNESIUM Sp ecimen Type: PLASMA Comment: Testin g Performed on Photoways (405) SN:[id number] Ordering Provid er: ISATU TODD Report Released Date/Time: Dec 12, 2021 08:24 AM Reporting Lab: [place] [facility] SightT [facility] [address] [facility] [address] Performing Lab: [employer] [place] Second SightT eZelleronMROC [address] [facility] [address] MAGNESIUM 1.8 1.6-2.6 Dec 12, 2021 06:00 AM AudioCaseFilesT eZelleronMROC PHOSPHORUS Sp ecimen Type: PLASMA Comment: Testin g Performed on Photoways (405) SN:[id number] Ordering Provid er: ISATU TODD Report Released Date/Time: Dec 12, 2021 08:24 AM Reporting Lab: [place] [facility] SightT [facility] [address] [facility] [address] Performing Lab: [place] [facility] SightT eZelleronMROC [address] [facility] [address] PHOSPHORUS 3.1 2.5-5.0 Dec 11, 2021 06:15 AM [employer] [place] Second SightT eZelleronMROC ELECTROLYTES Sp ecimen Type: PLASMA Comment: Tests performed on Photoways (405) SN:[id number] Ordering Provid er: ISATU TODD Report Released Date/Time: Dec 10, 2021 07:22 AM Reporting Lab: [place] [facility] SightT [facility] [address] [facility] [address] Performing Lab: [place] [facility] SightT [facility] [address] [facility] [address] SODIUM 137 135-145 POTASSIUM 4.3 3.5-5.0 CHLORIDE 108 100-110 CARBON DIOXIDE 20 20-30 ANION GAP 9 4-16 Dec 11, 2021 06:15 AM [place] GreenT [facility] CBC PROFILE Sp ecimen Type: BLOOD Comment: Result s checked Ordering Provid er: ISATU TODD Report Released Date/Time: Dec 10, 2021 07:22 AM Reporting Lab: [place] OMEGAT [facility] [address] [facility] [address] Performing Lab: [facility] [place] OMEGAT [facility] [address] [facility] [address] WBC 5.8 4.5-11.0 RBC 4.37 4.23-5.66 HGB [...] 0.00 0-0 Dec 11, 2021 06:00 AM [facility] PHOSPHORUS Sp ecimen Type: PLASMA Comment: Tests performed on Photoways (134) SN:[id number] Results checked Ordering Provid er: ISATU TODD Report Released Date/Time: Dec 11, 2021 07:44 AM Reporting Lab: [facility] [facility] [address] [facility] [address] Performing Lab: [place] OMEGAT [facility] [address] [facility] [address] PHOSPHORUS 3.0 2.5-5.0 Dec 10, 2021 08:05 AM [place] [facility] MAGNESIUM Sp ecimen Type: PLASMA Comment: [place] [id number] on Dec 10, 2021@08:31 Tests performed on Photoways (405) SN:[id number] Ordering Provid er: ISATU TODD Report Released Date/Time: Dec 10, 2021 07:22 AM Reporting Lab: [place] [facility] [address] [place] [facility] [place] [address] Performing Lab: [place] [facility] [address] [place] [facility] [place] [address] MAGNESIUM 1.7 1.6-2.6 Dec 10, 2021 08:05 AM [place] [facility] PHOSPHORUS Sp ecimen Type: PLASMA Comment: [place] [id number] on Dec 10, 2021@08:31 Tests performed on Photoways (405) SN:[id number] Ordering Provid er: ISATU TODD Report Released Date/Time: Dec 10, 2021 07:22 AM Reporting Lab: [place] [facility] [address] [place] [facility] [place] [address] Performing Lab: [place] [facility] [address] [place] [facility] [place] [address] PHOSPHORUS 1.8 L 2.5-5.0 Dec 10, 2021 08:05 AM [place] UREA NITROGEN Specimen Type: PLASMA [facility] Comment: [place] [id number] on Dec 10, 2021@08:31 Tests performed on Photoways (405) SN:[id number] Ordering Provid er: ISATU TODD Report Released Date/Time: Dec 10, 2021 07:22 AM Reporting Lab: [place] [facility] [address] [place] [facility] [place] [address] Performing Lab: [place] [facility] [address] [place] [facility] [place] [address] UREA NITROGEN 8 7-25 Dec 10, 2021 08:05 AM [place] [facility] GLUCOSE Sp ecimen Type: PLASMA Comment: [place] [id number] on Dec 10, 2021@08:31 Tests performed on Photoways (405) SN:[id number] Ordering Provid er: ISATU TODD Report Released Date/Time: Dec 10, 2021 07:22 AM Reporting Lab: [place] [facility] [address] [facility] [address] Performing Lab: [place] [facility] [address] [place] [facility] [place] [place] [address] GLUCOSE 144 H 65-100 Dec 10, 2021 08:05 [place] CREATININE WITH eGFR Specime n Type: PLASMA AM [facility] PANEL Comment: [place] [id number] on Dec 10, 2021@08:31 Tests performed on Pham FiftyThree (405) SN:[id number] Ordering Provid er: ISATU TODD Report Released Date/Time: Dec 10, 2021 07:22 AM Reporting Lab: [place] [facility] [address] [facility] [address] Performing Lab: [place] [facility] [address] [facility] [address] CREATININE 0.78 0.5-1.5 eGFR(CKD-EPI 2020) >90.0 >60 Dec 10, 2021 08:05 AM [place] [facility] ELECTROLYTES Sp ecimen Type: PLASMA Comment: [place] [id number] on Dec 10, 2021@08:31 Tests performed on Pham FiftyThree (405) SN:[id number] Ordering Provid er: ISATU TODD Report Released Date/Time: Dec 10, 2021 07:22 AM Reporting Lab: [place] [facility] [address] [facility] [address] Performing Lab: [place] [facility] [address] [facility] [address] SODIUM 139 135-145 POTASSIUM 3.7 3.5-5.0 CHLORIDE 107 100-110 CARBON DIOXIDE 24 20-30 ANION GAP 8 4-16 Dec 10, 2021 08:05 AM [place] [facility] CALCIUM Sp ecimen Type: PLASMA Comment: [place] [id number] on Dec 10, 2021@08:31 Tests performed on Pham FiftyThree (405) SN:[id number] Ordering Provid er: ISATU TODD Report Released Date/Time: Dec 10, 2021 07:22 AM Reporting Lab: [place] [facility] [address] [facility] [address] Performing Lab: [place] [facility] [address] [facility] [address] CALCIUM 8.3 L 8.5-10.5 Dec 10, 2021 08:05 AM [place] OMEGAT [facility] CBC PROFILE Sp ecimen Type: BLOOD No comment enter ed. Ordering Provid er: ISATU TODD Report Released Date/Time: Dec 10, 2021 07:22 AM Reporting Lab: [place] OMEGAT [facility] [address] [facility] [address] Performing Lab: [place] OMEGAT [facility] [address] [facility] [address] WBC 7.0 4.5-11.0 RBC 4.54 4.23-5.66 HGB [...] 0.00 0-0 Dec 09, 2021 06:46 [facility] MAGNESIUM Sp ecimen Type: PLASMA Comment: Tests performed on Photoways (407) SN:[id number] Ordering Provid er: ISATU TODD Report Released Date/Time: Dec 08, 2021 10:23 AM Reporting Lab: [place] OMEGAT [facility] [address] [facility] [address] Performing Lab: [facility] [address] [facility] [address] MAGNESIUM 1.6 1.6-2.6 Dec 09, 2021 [facility] P4 GLU,BUN,CREAT,LYTES,CA Speci men Type: PLASMA 06:46 AM [facility] Comment: Tests performed on Photoways (405) SN:[id number] Ordering Provid er: ISATU TODD Report Released Date/Time: Dec 08, 2021 05:00 PM Reporting Lab: [facility] [address] [facility] [address] Performing Lab: [facility] [address] [facility] [address] UREA NITROGEN 6 L 7-25 SODIUM 134 [...] Lab: [facility] [address] [facility] [address] Performing Lab: [facility] [address] [facility] [address] WBC 7.1 4.5-11.0 RBC 4.40 4.23-5.66 HGB [...] 0.00 0-0 Dec 08, 2021 06:39 AM [place] Racemi T [facility] MAGNESIUM Sp ecimen Type: PLASMA Comment: Testin g Performed on Photoways (405) SN:[id number] Ordering Provid er: ISATU TODD Report Released Date/Time: Dec 07, 2021 10:32 AM Reporting Lab: [facility] [address] [facility] [address] Per[facility] [address] [facility] [address] MAGNESIUM 1.5 L 1.6-2.6 Dec 08, 2021 [place] Racemi T P4 GLU,BUN,CREAT,LYTES,CA Speci men Type: PLASMA 06:39 AM [facility] Comment: Testin g Performed on Photoways (405) SN:[id number] Ordering Provid er: ISATU TODD Report Released Date/Time: Dec 07, 2021 10:32 AM Reporting Lab: [employer] T [facility] [address] [facility] [address] Performing Lab: [facility] [address] [facility] [address] UREA NITROGEN 6 L 7-25 SODIUM 136 135-145 POTASSIUM 3.3 L 3.5-5.0 CHLORIDE 104 100-110 CARBON DIOXIDE 22 20-30 ANION GAP 10 4-16 GLUCOSE 133 H 65-100 CREATININE 0.76 0.5-1.5 CALCIUM 8.4 L 8.5-10.5 eGFR(CKD-EPI 2020) >90.0 >60 Dec 08, 2021 06:39 AM [place] Rac[place] T [facility] CBC PROFILE Sp ecimen Type: BLOOD No comment enter ed. Ordering Provid er: ISATU TODD Report Released Date/Time: Dec 07, 2021 10:32 AM Reporting Lab: [facility] [address] [facility] [address] Performing Lab: [facility] [address] [facility] WBC 8.4 4.5-11.0 RBC [...] NRBC 0.00 0-0 Dec 07, 2021 06:42 [facility] LIVER PROFILE Specimen Typ e: PLASMA AM [facility] Comment: Tests performed on Photoways (405 SN:[id number] Ordering Provid er: PORFIRIO WALTERS Report Released Date/Time: Dec 06, 2021 06:57 PM Reporting Lab: [facility] [address] [facility] [address] Performing Lab: [facility] [address] [facility] [address] PROTEIN, TOTAL 5.7 L 6.0-8.5 ALBUMIN 2.4 L 3.2-5.0 BILIRUBIN, TOTAL 0.4 0.2-1.2 ALKALINE PHOSPHATASE 109 40-150 ALT(SGPT) 10 7-52 AST(SGOT) 15 5-34 FIB-4 SCORE 1.92 <2.67 Dec 07, 2021 [facility] P[facility] GLU,BUN,CREAT,LYTES,CA Speci men Type: PLASMA 06:42 AM [facility] Comment: Tests performed on Photoways (405) SN:[id number] Ordering Provid er: PORFIRIO WALTERS Report Released Date/Time: Dec 06, 2021 06:57 PM Reporting Lab: [place] [facility] [address] [facility] [address] Performing Lab: [place] [facility] [address] [facility] [address] UREA NITROGEN 9 7-25 SODIUM 135 135-145 POTASSIUM 3.5 3.5-5.0 CHLORIDE 103 100-110 CARBON DIOXIDE 22 20-30 ANION GAP 10 4-16 GLUCOSE 92 65-100 CREATININE 0.73 0.5-1.5 CALCIUM 8.0 L 8.5-10.5 eGFR(CKD-EPI 2020) >90.0 >60 Dec 07, 2021 06:42 AM [place] CBC PROFILE Specimen Type: [facility]LOOD [facility] No comment enter ed. Ordering Provid er: PORFIRIO WALTERS Report Released Date/Time: Dec 06, 2021 06:57 PM Reporting Lab: [place] [facility] [address] [facility] [address] Per[facility] Lab: [facility] [address] [facility] [address] WBC 5.7 4.5-11.0 RBC 4.15 L 4.23-5.66 [...] VAMR[facility] %) AUTOMATED Comment: Tests performed on Photoways (405) SN:[id number] Ordering Provid er: ISATU TODD Report Released Date/Time: Dec 07, 2021 10:28 AM Reporting Lab: [place] [facility] [address] [facility] [address] Performing Lab: [place] [facility] [address] [facility] [address] RETICULOCYTES (%) AUTOMATED 1.23 0. 6-2.0 RETICULOCYTES (ABS) AUTOMATED 0.052 0.030-0.090 Dec 06, 2021 09:45 [place] MRSA SURVL NARES Specimen Ty pe: NARES PM [facility] DNA No comment enter ed. Ordering Provid er: ALVARO VARGHESE Report Released Date/Time: Dec 07, 2021 02:20 AM Reporting Lab: [place] [facility] [address] [facility] [address] Performing Lab: [place] [facility] [address] [facility] [address] MRSA SURVL NARES DNA NEGATIVE NEGATIVE Dec 06, 2021 06:00 [place] URINALYSIS W/REFLEX TO Speci men Type: URINE PM [facility] CULTURE No comment enter ed. Ordering Provid er: JELANI SÁNCHEZ Report Released Date/Time: Dec 06, 2021 11:57 AM Reporting Lab: [place] [facility] [address] [facility] [address] Performing Lab: [place] [facility] [address] [facility] [address] URINE COLOR Arlin YELLOW SPECIFIC GRAVITY 1.029 [...] 21, RIVER VARIANT Comment: https://www.cdc.gov/coronavirus/2019-ncov/cases-updates/variant- surveillance/variant-info.html The Ullink SARS CoV 2 [employer] Research Assay-GX is a next-generation sequencing (NGS) assa 2021 [facility] SEQUENCING y that determine s the complete genome sequence of the SARS-CoV-2 virus. The assay contains variant-tolerant primers to broaden and improve the coverage for variant detection and increase the sensitivity 12:00 [facility] PNL(WH) of the panel to enable detection from lower viral titer samples. The assay is run on the [employer] Sequencer, which performs automated library preparation, sequencing, analysis, and reporting. PM The sequence an alysis includes determination of viral phylogenetic lineage by comparison to the reference strain Wuhan-Hu-1, GenBank: [id number]. Sequence determination may not be possible owing [...] Dec 06, 2021 01:13 PM Reporting Lab: [facility] [address] [place] [facility] [place] [place] [address] Performing [facility]: [facility] [address] [facility] [address] SARS-CoV-2 CLADE() 22C (OMICRON) SARS-CoV-2 LINEAGE() BA.2.12.1 Dec 06, 2021 12:00 [facility] COVID-19 AG SCREEN Specimen Type: NASAL CAVITY PM [facility] PANEL BINAX(405) Comment: Testi ng Performed By: Mike Briscoe Ordering Provid er: JELANI SÁNCHEZ Report Released Date/Time: Dec 08, 2021 08:23 AM Reporting Lab: [facility] [address] [facility] [address] Per[facility]: [facility] [address] [facility] [address] COVID-19 AG SCRN(wrj BINAX) POSITIVE HH NE G Dec 06, 2021 12:00 PM [facility] BNP(P) Sp ecimen Type: PLASMA Comment: Tests performed on Pham Glacing Machine Tender (405) SN:[id number] Ordering Provid er: EJLANI SÁNCHEZ Report Released Date/Time: Dec 06, 2021 11:57 AM Reporting Lab: [facility] [address] [place] [facility] [place] [place] [address] Performing [facility]: [facility] [address] [place] [facility] [place] [address] BNP(P) 224.8 H 10-100 Dec 06, 2021 12:00 PM [facility] LIVER PROFILE Sp ecimen Type: PLASMA Comment: Testin g Performed on Pham Glacing Machine Tender (405) SN:[id number] Ordering Provid er: JELANI SÁNCHEZ Report Released Date/Time: Dec 06, 2021 11:57 AM Reporting Lab: [facility] [address] [place] [facility] [place] [address] Performing Lab: [facility] [address] [place] [facility] [place] [place] [address] PROTEIN, TOTAL 6.6 6.0-8.5 ALBUMIN 2.8 L 3.2-5.0 BILIRUBIN, TOTAL 0.6 0.2-1.2 ALKALINE PHOSPHATASE 134 40-150 ALT(SGPT) 13 7-52 AST(SGOT) 18 5-34 FIB-4 SCORE 1.94 <2.67 Dec 06, 2021 [facility] T P4 GLU,BUN,CREAT,LYTES,CA Speci men Type: PLASMA 12:00 PM [facility] Comment: Testin g Performed on Pham Glacing Machine Tender (405) SN:[id number] Ordering Provid er: JELANI SÁNCHEZ Report Released Date/Time: Dec 06, 2021 11:57 AM Reporting Lab: [facility] [address] [facility] [address] Performing Lab: [facility] [address] [facility] [address] UREA NITROGEN 13 7-25 SODIUM 138 135-145 POTASSIUM 3.8 3.5-5.0 CHLORIDE 103 100-110 CARBON DIOXIDE 23 20-30 ANION GAP 12 4-16 GLUCOSE 105 H 65-100 CREATININE 0.90 0.5-1.5 CALCIUM 8.7 8.5-10.5 eGFR(CKD-EPI 2020) >90.0 >60 Dec 06, 2021 12:00 [facility] TROPONIN II Sp ecimen Type: PLASMA Comment: Tests performed on Pham Glacing Machine Tender (405) SN:[id number] Ordering Provid er: JELANI SÁNCHEZ Report Released Date/Time: Dec 06, 2021 11:57 AM Reporting Lab: [place] [facility] T [facility] [address] [facility] [address] Performing Lab: [facility] [address] [facility] [address] TROPONIN II 0.03 0.00-0.29 Dec 06, 2021 [facility] [place] COVID-19+FLU/RSV DIAGNOSTIC Spe cimen Type: NASOPHARYNX 12:00 PM [facility] PANEL(405) Comment: Tests performed on Feeshehxpert (405) Critical results called to and read back by: ALESHIA WILKINSON RN 12/06/21 @ 1312 Ordering Provid er: JELANI SÁNCHEZ Report Released Date/Time: Dec 06, 2021 11:57 AM Reporting Lab: [facility] [place] [facility] [address] [facility] [address] Performing Lab: [place] [facility] [address] [facility] [address] FLU A(PCR) NEGATIVE NEGATIVE FLU B(PCR) NEGATIVE NEGATIVE RSV(PCR) NEGATIVE NEGATIVE COVID-19([id number]) DETECTED HH NO T DETECTED Dec 06, 2021 12:00 [facility] ecimen Type: BLOOD No comment enter ed. Ordering Provid er: JELANI SÁNCHEZ Report Released Date/Time: Dec 06, 2021 11:57 AM Reporting Lab: [facility] [address] [facility] [address] Performing Lab: [facility] [address] [facility] [address] WBC 7.2 4.5-11.0 RBC 4.86 4.23-5.66 HGB [...] 94 122/75 18 /min 97 % 0 G[place] 2021 09:00 /min mm[Hg] RIVER PM T [facility] Dec 10, 0 WHITE 2021 08:57 RIVER PM T [facility] Dec 10, 0 WHITE 2021 04:17 RIVER PM T [facility] Dec 10, 97.8 F 93 125/74 20 /min 95 % 0 [place] 2021 01:40 /min mm[Hg] RIVER PM T [facility] Dec 10, 231.9 32 [place] 2021 10:22 lb RIVER AM [facility] Social History: Smoking Status (Most current) and Tobacco Use (All prior to encounter date) This section includes the most current, and the historical, smoking and tobacco-related health factors from the [place] facility where the Encounter took place.Current Smoking Status This section includes the most current smoking, or tobacco-related health factor, from the [place] facility where the Encounter took place. Date/Time Current Smoking Status Comment Facility Dec 06, 2021 11:40 AM QUIT TOBACCO USE > 7 YEARS AGO [facility] Tobacco Use History This section includes a history of the smoking, or tobacco- related health factors, that were collected on or before the date of the Encounter. The data comes from the [place] facility where the Encounter took place. Date/Time Smoking Status/Tobacco Use Comment [facility] Apr 01, 2020 01:16 PM QUIT [...] [facility] May 01, 2016 03:11 PM QUIT TOBACCO USE IN PAST YEAR CAREY DOYLE [facility] May 01, 2016 11:19 AM QUIT TOBACCO USE IN PAST YEAR CAREY DOYLE [facility] Mar 16, 2016 12:50 PM V1-PT DECLINES REF TO TOBACCO CAREY DOYLE [facility] CESS [facility] Mar 16, 2016 12:50 PM V1-PT THINKING ABOUT QUIT CAREY DOYLE [facility] TOBACCO USE Aug 12, 2015 08:48 AM CURRENT SMOKER CAREY Yates [facility] Radiology Reports: +/- 30 days of [...] the Encounter. The data comes from all [place] treatment facilities. Date/Time Radiology Report Provider Source Dec 13, 2021 12:57 PM MRI ABDOMEN W/WO CONTRAST: MARYELLEN LONG LUCAS LARES N [id number] -1950 [facility] Exm Date: DEC 13, 2021@12:57 Req Phys: ISATU TODD Loc: OP Unknown/0 12-15-2021@13:20 Img Loc: MRI IMAGING (OOS) Service: [facility] MEDICINE (Case [id number] COMPLETE) MRI ABDOMEN W/WO CONTRAST (M RI Detailed) CPT:01529 Reason for Study: further characterization of a [...] new lyphadenopathy REQUESTING MD: Isatu Todd PAGER: [phone] PHONE: [phone] Weight: 232.2 lb [105.32 kg] (12/12/2021 05:00) [...] patient will need to arrange for a seasonal delivery driver to take him/her home after [...] 15, 2021 Date Verified: DEC 15, 2021 Assembly Machine Tool Setter E-Sig:/ES/MARYELLEN LONG Report: MRI ABDOMEN W/WO CONTRAST [...] MALIGNANCY Primary Interpreting Staff: Staff AMELIA THOMAS (Assembly Machine Tool Setter) / Dec 10, 2021 09:[address] ABDOMEN & PELVIS: RADIOLOGY,OUTSIDE [facility] LUCAS MEEK N [id number] -1950 M SERVICE [facility] Exm Date: DEC 10, 2021@09:30 Req Phys: ISATU TODD Loc: MED/12-10@10:57 Img Loc: CT SCAN (OOS) Service: [facility] MEDICINE (Case [id number] COMPLETE) CT ABD & PELVIS WITHOUT CONT RAST (CT Detailed) CPT:99216 Reason for Study: 71 yo male with [...] RADIOLOGY [phone] to speak to the appropriate locate technician. Report Status: Verified Date Reported: DEC 10, 2021 Date Verified: DEC 10, 2021 Assembly Machine Tool Setter E-Sig: Report: EXAM: CT abdomen and pelvis [...] ph nodes. READING PHYSICIAN: Ramone Munoz D.O. [phone] 12/10/2021 10:55 EDT [facility] National Teleradiology Program [phone] (For Medical Practitioner Use Only ) [address] [facility], [facility] [address], [address] [place] [address] Attention Patients / Veterans: If you have ques tions or concerns about these test results, please contact [facility] or primary care team. Primary Diagnostic Code: SIGNIFICANT ABNORMALIT Y, ATTN NEEDED Primary Interpreting Staff: RADIOLOGY,OUTSIDE SERVICE, Staff Physician / Dec 09, 2021 07:34 AM BASW (MODIFIED): JESSIE CHENEY [facility] LUCAS MEEK N [id number] -1950 M [facility] Exm Date: DEC 09, 2021@07:34 Req Phys: ISATU TODD Loc: 1S MED/12-09@11:26 Img Loc: XRAY (OOS) Service: [facility] MEDICINE (Case [id number] COMPLETE) BASW (MODIFIED) (RAD Detaile d) CPT:88339 Contrast Media : Barium Reason for Study: dysphagia ?esophageal spasm Clinical History: Report Status: Verified Date Reported: DEC 09, 2021 Date Verified: DEC 09, 2021 Assembly Machine Tool Setter E-Sig:/ES/JESSIE CHENEY Report: BASW (MODIFIED) , 12/09/2021 [...] REQUIRED Primary Interpreting Staff: JESSIE CHENEY, RADIOLOGIST (Assembly Machine Tool Setter) /TLC Dec 06, 2021 12:[address] CHEST (INCLUDES ADRENALS): JESSIE CHENEY [facility] LUCAS MEEK N [id number] -1950 M [facility] Exm Date: DEC 06, 2021@12:59 Req Phys: GONZALOJELANI Loc: [facility] ED DAYS M 1RD (Req'g Loc) Img Loc: CT SCAN (OOS) Service: Unknown (Case [id number] COMPLETE) CT THORAX W/O CONT (CT Detai led) CPT:20602 Reason for Study: Opacification right chest Clinical History: No contrast allergy BUN: 13 (12/06/21 12:00) CREATI: 0.90 (12/06/21 12:00) eGFR 05/16/21 09:43 52 L Weight: 232.6 lb [105.51 kg] (12/06/2021 11:40) BODY MASS INDEX - NO HEIGHTS FOUND Pager number: [phone] STAT orders MUST be called t o RADIOLOGY [phone] to speak to the appropriate locate technician. Indications - Other: Opacification right chest, covid positive, lung cancer histo Report Status: Verified Date Reported: DEC 06, 2021 Date Verified: DEC 06, 2021 Assembly Machine Tool Setter E-Sig:/ES/JESSIE CHENEY Report: CT THORAX W/O CONT [...] REQUIRED Primary Interpreting Staff: JESSIE CHENEY, RADIOLOGIST (Assembly Machine Tool Setter) Primary Interpreting Resident: PRINCE CHAMPION, Resident /BR Dec 06, 2021 11:58 AM CHEST SINGLE VIEW: JESSIE CHENEY DOUGLAS N [id number] -1950 M [facility] Exm Date: DEC 06, 2021@11:58 Req Phys: JELANI SÁNCHEZ Pat Loc: [facility] ED DAYS M 1RD (Req'g Loc) Img Loc: XRAY (OOS) Service: Unknown (Case [id number] COMPLETE) CHEST SINGLE VIEW (RAD Detai led) CPT:87053 Proc Modifiers : PORTABLE EXAM Reason for Study: SOB, home covid test positive Clinical History: Report Status: Verified Date Reported: DEC 06, 2021 Date Verified: DEC 06, 2021 Assembly Machine Tool Setter E-Sig:/ES/EJSSIE CHENEY Report: Exam type: Chest x-ray TECHNIQUE: [...] REQUIRED Primary Interpreting Staff: JESSIE CHENEY, RADIOLOGIST (Assembly Machine Tool Setter) /TLC Pathology Reports: +/- 30 days of [...] the Encounter. The data comes from all [place] treatment facilities. Date/Time Pathology Report Provider Source Jan 03, 2022 10:28 AM LR SURGICAL PATHOLOGY REPORT: STEFANY MILLER LOCAL TITLE: LR SURGICAL PATHOLOGY REPORT [facility] STANDARD TITLE: PATHOLOGY REPORT DATE OF NOTE: JAN 03, 2022@10:28:01 ENTRY DATE: JAN 03, 2022@10:28:01 AUTHOR: NIURKA MILLER EXP COSIGNER: URGENCY: STATUS: COMPLETED $APHDR Reporting Lab: CAREY MONTOYA [facility] [CLIA# [id number]] [address] [place] [address] - - - - - - [...] automatically d ocumented from SURGERY package case #[id number] Field (#32) PRINCIPAL PRE-OP DIAGNOSIS, (#.72) OTHER [...] automatically d ocumented from SURGERY package case #[id number] Field (#34) PRINCIPAL POST-OP DIAG, (#.74) OTHER [...] Label: Lucas Meek Paperwork: Lucas Meek Cassette: [id number];..;KALYANI;.;405;[phone] Specimen is labeled: ES bx Received in formalin are several pieces of pale boyd and brown tissue, 1.2 x 0.7 cm in aggregate. Submitted entirely in 1 cassette [id number];..;KALYANI;.;405;[phone] SAW 12/15/2021 Microscopic exam: *+* MODIFIED REPORT *+* (Last modified: JAN 03, 2022@09:30:20 typed by NIURKA WADDELL) DIAGNOSIS: A. 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 Kenedll long. TIARA Coombs was notified on 12/21/21. Modified on 01/03/22 to include report from [facility] stating that tumor is NEGATIVE for her2/ matheus amplification. The attending pathologist who signature mansoor ears on this report has reviewed all diagnostic slides and has edited t he gross and/or microscopic portion of this report in rendering the final pathologic diagnosis. [address] [address] CPT: 00186 /emely/ NIURKA Yeung MD Signed Jan 03, 2022@10:28 Performing Laboratory: Surgical Pathology Report Performed By: CAREY MONTOYA [facility] [CLIA# [id number]] [address] [place] [address] $FTR - - - - - [...] - - LUCAS MEEK STANDARD FORM 515 ID:[id number] SEX:M :1950 AGE: 71 LOC: SDM END PCP: Isatu Todd /emely/ NIURKA MILLER Staff Signed: 01/03/2022 10:28 Dec 21, 2021 11:46 AM LR SURGICAL PATHOLOGY REPORT: STEFANY MILLER [facility] LOCAL TITLE: LR SURGICAL PATHOLOGY REPORT [facility] STANDARD TITLE: PATHOLOGY REPORT DATE OF NOTE: DEC 21, 2021@11:46:59 ENTRY DATE: DEC 21, 2021@11:46:59 AUTHOR: NIURKA MILLER EXP COSIGNER: URGENCY: STATUS: COMPLETED $APHDR Reporting Lab: [facility] [CLIA# [id number]] [address] [place] [address] - - - - - - [...] automatically d ocumented from SURGERY package case #[id number] Field (#32) PRINCIPAL PRE-OP DIAGNOSIS, (#.72) OTHER [...] automatically d ocumented from SURGERY package case #[id number] Field (#34) PRINCIPAL POST-OP DIAG, (#.74) OTHER [...] Label: Lucas Meek Paperwork: Lucas Meek Cassette: [id number];..;KALYANI;.;745;[phone] Specimen is labeled: ES bx Received in formalin are several pieces of pale boyd and brown tissue, 1.2 x 0.7 cm in aggregate. Submitted entirely in 1 cassette [id number];..;KALYANI;.;405;[id number] SAW 12/15/2021 Microscopic exam: DIAGNOSIS: A. 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 Kendell long. TIARA Coombs was notified on 12/21/21. The attending pathologist who signature mansoor ears on this report has reviewed all diagnostic slides and has edited t he gross and/or microscopic portion of this report in rendering the final pathologic diagnosis. [address] [address] CPT: 98725 /emely/ NIURKA Yeung MD Signed Dec 21, 2021@11:46 Performing Laboratory: Surgical Pathology Report Performed By: [facility] [CLIA# [id number]] [address] [place] [address] $FTR - - - - - [...] - - LUCAS EMEK STANDARD FORM 515 ID:[id number] SEX:M :1950 AGE: 71 LOC: [facility] END PCP: Isatu Todd /charmaine Yeung MD Signed: 12/21/2021 11:46 Dec 06, 2021 03:30 PM LR MICROBIOLOGY REPORT: [facility] Reporting Lab: [facility] [CLIA# [id number]] [address] [place] [address] Accession [UID]: [id number] [[id number]] Receiv ed: Dec 06, 2021@16:14 Collection sample: BLOOD CUL T BOTTLE(NIRMAL/AERO)Collection date: Dec 06, 2021 15:30 Site/Specimen: BLOOD Provider: JELANI SÁNCHEZ Comment on specimen: LAC Test(s) ordered: BLOOD CULTURE ANAEROBI C....... completed: Dec 12, 2021 06:18 * BACTERIOLOGY FINAL REPORT => Dec 12, 2021 06:1 8 TECH CODE: 00963 Bacteriology Remark(s): NO GROWTH IN 5 DAYS =--=--=--=--=--=--=--=--=--=--=--=--=--= --=--=--=--=--=--=--=--=--=--=--=--=-- Performing Laboratory: Bacteriology Report Performed By: [facility] [CLIA# [id number]] [address] [place] [address] Dec 06, 2021 03:30 PM LR MICROBIOLOGY REPORT: [facility] Reporting Lab: [facility] [CLIA# [id number]] [address] [place] [address] Accession [UID]: [id number] [[id number]] Receiv ed: Dec 06, 2021@16:14 Collection sample: BLOOD CUL T BOTTLE(NIRMAL/AERO)Collection date: Dec 06, 2021 15:30 Site/Specimen: BLOOD Provider: JELANI SÁNCHEZ Comment on specimen: LAC Test(s) ordered: BLOOD CULTURE AEROBIC. ........ completed: Dec 12, 2021 06:17 * BACTERIOLOGY FINAL REPORT => Dec 12, 2021 06:1 7 TECH CODE: 90254 Bacteriology Remark(s): NO GROWTH IN 5 DAYS =--=--=--=--=--=--=--=--=--=--=--=--=--= --=--=--=--=--=--=--=--=--=--=--=--=-- Performing Laboratory: Bacteriology Report Performed By: [facility] [CLIA# [id number]] [address] [place] [address]
--- OUTSIDE RECORDS SUMMARY | 2022-01-19 08:35 | XMS_ITS ---
DAILY HOSPITALIZATION DATA [facility] Encounter Summary Created on:December 10, 2021 Patient:LUCAS MEEK Sex:Male :1950 Author Organization [facility] Address [address] [place] [id number] Support Name Relationship Address Phone YUSRA MEEK Unavailable [address] [place] [address] YUSRA MEEK Unavailable [address] [place] [address] CLAY MOSLEY Unavailable Unavailable SJ SANTACRUZ Unavailable [...] MEDICARE MEDICARE PART Jun 18, PART A [id number] DO KALYANI PATIENT (WNR) (M) A 2016 13A 1 [place]AS MEDICARE MEDICARE PART Jun 18, PART B [id number] DO KALYANI PATIENT (WNR) (M) B 2016 13A 1 [place] MEDICARE MEDICARE PART Jun 18, PART A [id number] KALYANIDO PATIENT (WNR) (M) A 2017 VH81 2 [place] MEDICARE MEDICARE PART Jun 18, PART B [id number] DO KALYANI PATIENT (WNR) (M) B 2017 VH81 2 [place] UNITED MEDICARE MCR(Jun 18 [id number] Luz MEEK PATIENT HEALTHCARE ADVANTAGE NR) 2021 37 0 [facility] (WNR) Selected Encounter This section includes the information on record at [place] for the Encounter. Date/Time Encounter Type Encounter Description Reason Provider Source Dec 10, 2021 10:16 Inpatient Visit DAILY HOSPITALIZATION DATA AM [facility] Encounter Template Text not used by [place] [...] [place] [facility] Jan 10, 2022 11:30 AM AMBULATORY - MEDICINE [facility] Jan 24, 2022 08:00 AM [place] [facility] Feb 21, 2022 10:00 AM [place] [facility] Mar 21, 2022 10:30 AM [...] The data comes from all [place] treatment [facility]. Test Date/Time Test Type Test Details Facility Name October 31, 2021 07:37 AM Consult Order COMMUNITY CARE-EGD [facility] Cons Blow [place] Operator's Choice November 15, 2021 10:37 AM Consult Order [facility] CARE-PODIATRY Cons [place] Operator's Choice Dec 06, 2021 12:52 PM Pharmacy - [place] [facility] Order [facility] Dec 06, 2021 03:24 PM [facility]acy - [place] [facility] Dec 06, 2021 03:40 PM [place]acy - [place] [facility] Dec 15, 2021 08:41 AM Consult Order SPEECH PATHOLOGY [place] Cons [facility] Blow Mold Operator's Choice Jan 15, 2022 10:08 PM Consult Order [facility] CARE-PALLIATIVE CARE Cons [place] Operator's Choice Lab Results: +/- 30 days [...] Reference Range Comment Dec 15, 2021 [place] P4 GLU,BUN,CREAT,LYTES,CA Speci men Type: PLASMA 06:43 AM [facility] Comment: Tests performed on Magma HQ (405) SN:[id number] Ordering Provid er: ISATU TODD Report Released Date/Time: Dec 11, 2021 07:42 AM Reporting Lab: [facility] [address] [facility] [address] Performing Lab: [facility] [address] [facility] [address] UREA NITROGEN 9 7-25 SODIUM 137 135-145 POTASSIUM 3.8 3.5-5.0 CHLORIDE 105 100-110 CARBON DIOXIDE 26 20-30 ANION GAP 6 4-16 GLUCOSE 102 H 65-100 CREATININE 0.64 0.5-1.5 CALCIUM 8.1 L 8.5-10.5 eGFR(CKD-EPI 2020) >90.0 >60 Dec 15, 2021 06:43 AM [facility] CBC PROFILE Sp ecimen Type: BLOOD No comment enter ed. Ordering Provid er: ISATU TODD Report Released Date/Time: Dec 10, 2021 07:22 AM Reporting Lab: [facility] [address] [facility] [address] Performing Lab: [facility] [address] [facility] [address] WBC 5.7 4.5-11.0 RBC 4.22 L 4.23-5.66 [...] ABSOLUTE NRBC 0.00 0-0 Dec 14, 2021 [facility] CYTOGENETIC Specimen Type: ESOPHAGUS 02:59 PM [facility]) Comment: ~For T est: CYTOGENETIC FISH([facility]) ~FISH HER 2 NUE, FFPE See full report in [employer]ent[employer] Image display viewer/tab#LAB-Reference Ordering Provid er: NIURKA MILLER Report Released Date/Time: Dec 21, 2021 12:11 PM Reporting Lab: [facility] [address] [facility] [address] Performing Lab: [facility] CYTOGENETIC FISH([facility]) comment Dec 14, 2021 [facility] P4 GLU,BUN,CREAT,LYTES,CA Speci men Type: PLASMA 06:27 AM [facility] Comment: Tests performed on Magma HQ (405) SN:[id number] Ordering Provid er: ISATU TODD Report Released Date/Time: Dec 11, 2021 07:42 AM Reporting Lab: [facility] [address] [facility] [address] Performing Lab: [facility] [address] [facility] [address] UREA NITROGEN 10 7-25 SODIUM 137 135-145 POTASSIUM 4.0 3.5-5.0 CHLORIDE 104 100-110 CARBON DIOXIDE 25 20-30 ANION GAP 8 4-16 GLUCOSE 99 65-100 CREATININE 0.67 0.5-1.5 CALCIUM 8.2 L 8.5-10.5 eGFR(CKD-EPI 2020) >90.0 >60 Dec 14, 2021 06:27 AM [facility] CBC PROFILE Sp ecimen Type: BLOOD No comment enter ed. Ordering Provid er: ISATU TODD Report Released Date/Time: Dec 10, 2021 07:22 AM Reporting Lab: [facility] [address] [facility] [address] Performing Lab: [facility] [address] [facility] [address] WBC 6.0 4.5-11.0 RBC 4.29 4.23-5.66 HGB [...] ABSOLUTE NRBC 0.00 0-0 Dec 13, 2021 [facility] P4 GLU,BUN,CREAT,LYTES,CA Speci men Type: PLASMA 06:34 AM [facility] Comment: Tests performed on Magma HQ (405) SN:[id number] Ordering Provid er: ISATU TODD Report Released Date/Time: Dec 11, 2021 07:42 AM Reporting Lab: [facility] [address] [facility] [address] Performing Lab: [facility] [address] [facility] [address] UREA NITROGEN 12 7-25 SODIUM 136 135-145 POTASSIUM 3.9 3.5-5.0 CHLORIDE 105 100-110 CARBON DIOXIDE 24 20-30 ANION GAP 7 4-16 GLUCOSE 102 H 65-100 CREATININE 0.66 0.5-1.5 CALCIUM 8.3 L 8.5-10.5 eGFR(CKD-EPI 2020) >90.0 >60 Dec 13, 2021 06:34 AM [facility] CBC PROFILE Sp ecimen Type: BLOOD No comment enter ed. Ordering Provid er: ISATU TODD Report Released Date/Time: Dec 10, 2021 07:22 AM Reporting Lab: [facility] [address] [facility] [address] Performing Lab: [facility] [address] [facility] [address] WBC 5.6 4.5-11.0 RBC 4.28 4.23-5.66 HGB [...] ABSOLUTE NRBC 0.00 0-0 Dec 12, 2021 [facility] P4 GLU,BUN,CREAT,LYTES,CA Speci men Type: PLASMA 06:21 AM [facility] Comment: Tests performed on Magma HQ (405) SN:[id number] Ordering Provid er: ISATU TODD Report Released Date/Time: Dec 11, 2021 07:42 AM Reporting Lab: [facility] [address] [facility] [address] Performing [facility]: [facility] [address] [facility] [address] UREA NITROGEN 11 7-25 SODIUM 139 135-145 POTASSIUM 4.1 3.5-5.0 CHLORIDE 107 100-110 CARBON DIOXIDE 24 20-30 ANION GAP 8 4-16 GLUCOSE 110 H 65-100 CREATININE 0.70 0.5-1.5 CALCIUM 8.3 L 8.5-10.5 eGFR(CKD-EPI 2020) >90.0 >60 Dec 12, 2021 06:21 AM [facility] CBC PROFILE Sp ecimen Type: BLOOD No comment enter ed. Ordering Provid er: ISATU TODD Report Released Date/Time: Dec 10, 2021 07:22 AM Reporting Lab: [facility] [address] [facility] [address] Performing Lab: [facility] [address] [facility] [address] WBC 5.5 4.5-11.0 RBC 4.37 4.23-5.66 HGB [...] 0.00 0-0 Dec 12, 2021 06:00 AM Sp[facility] MAGNESIUM Sp ecimen Type: PLASMA Comment: Testin g Performed on Magma HQ (405) SN:[id number] Ordering Provid er: ISATU TODD Report Released Date/Time: Dec 12, 2021 08:24 AM Reporting Lab: [place] [facility] [facility] [address] [facility] [address] Performing Lab: [place] [facility] [address] [facility] [address] MAGNESIUM 1.8 1.6-2.6 Dec 12, 2021 06:00 AM [facility] PHOSPHORUS Sp ecimen Type: PLASMA Comment: Testin g Performed on Magma HQ (405) SN:[id number] Ordering Provid er: ISATU TODD Report Released Date/Time: Dec 12, 2021 08:24 AM Reporting Lab: [place] [employer] [facility] [address] [facility] [address] Performing Lab: [place] [employer] [facility] [address] [facility] [address] PHOSPHORUS 3.1 2.5-5.0 Dec 11, 2021 06:15 AM [place] [employer] ELECTROLYTES Sp ecimen Type: PLASMA Comment: Tests performed on Magma HQ (405) SN:[id number] Ordering Provid er: ISATU TODD Report Released Date/Time: Dec 10, 2021 07:22 AM Reporting Lab: [place] [employer] [facility] [address] [facility] [address] Performing Lab: [place] [employer] [facility] [address] [facility] [address] SODIUM 137 135-145 POTASSIUM 4.3 3.5-5.0 CHLORIDE 108 100-110 CARBON DIOXIDE 20 20-30 ANION GAP 9 4-16 Dec 11, 2021 06:15 AM [place] [facility]ris [employer]T [facility] CBC PROFILE Sp ecimen Type: BLOOD Comment: Result s checked Ordering Provid er: ISATU TODD Report Released Date/Time: Dec 10, 2021 07:22 AM Reporting Lab: [place] [employer] [facility] [address] [facility] [address] Performing Lab: [facility] [place] [facility] [facility] [address] [facility] [address] WBC 5.8 4.5-11.0 RBC 4.37 4.23-5.66 HGB [...] 0.00 0-0 Dec 11, 2021 06:00 AM [facility] PHOSPHORUS Sp ecimen Type: PLASMA Comment: Tests performed on Magma HQ (529) SN:[id number] Results checked Ordering Provid er: ISATU TODD Report Released Date/Time: Dec 11, 2021 07:44 AM Reporting Lab: [facility] [place] [facility] [address] [facility] [address] Performing Lab: [place] [employer] [facility] [address] [facility] [address] PHOSPHORUS 3.0 2.5-5.0 Dec 10, 2021 08:05 AM [place] [facility] MAGNESIUM Sp ecimen Type: PLASMA Comment: [place] [id number] on Dec 10, 2021@08:31 Tests performed on Magma HQ (405) SN:[id number] Ordering Provid er: ISATU TODD Report Released Date/Time: Dec 10, 2021 07:22 AM Reporting Lab: [place] [facility] [address] [place] [facility] [place] [place] [address] Performing Lab: [place] [facility] [address] [place] [facility] [place] [address] MAGNESIUM 1.7 1.6-2.6 Dec 10, 2021 08:05 AM [place] [facility] PHOSPHORUS Sp ecimen Type: PLASMA Comment: [place] [id number] on Dec 10, 2021@08:31 Tests performed on Magma HQ (405) SN:[id number] Ordering Provid er: ISATU TODD Report Released Date/Time: Dec 10, 2021 07:22 AM Reporting Lab: [place] [facility] [address] [place] [facility] [place] [place] [address] Performing Lab: [place] [facility] [address] [place] [facility] [place] [address] PHOSPHORUS 1.8 L 2.5-5.0 Dec 10, 2021 08:05 AM [place] [facility] GLUCOSE Sp ecimen Type: PLASMA Comment: [place] [id number] on Dec 10, 2021@08:31 Tests performed on Magma HQ (405) SN:[id number] Ordering Provid er: ISATU TODD Report Released Date/Time: Dec 10, 2021 07:22 AM Reporting Lab: [place] [facility] [address] [place] [facility] [place] [address] Performing Lab: [place] [facility] [address] [place] [facility] [place] [address] GLUCOSE 144 H 65-100 Dec 10, 2021 08:05 AM [place] [facility] CALCIUM Sp ecimen Type: PLASMA Comment: [place] [id number] on Dec 10, 2021@08:31 Tests performed on Magma HQ (405) SN:[id number] Ordering Provid er: ISATU TODD Report Released Date/Time: Dec 10, 2021 07:22 AM Reporting Lab: [place] [facility] [address] [place] [facility] [place] [address] Performing Lab: [place] [facility] [address] [facility] [address] CALCIUM 8.3 L 8.5-10.5 Dec 10, 2021 08:05 AM [place] [facility] ELECTROLYTES Sp ecimen Type: PLASMA Comment: [place] [id number] on Dec 10, 2021@08:31 Tests performed on Ph[employer] Online (405) SN:[id number] Ordering Provid er: ISATU TODD Report Released Date/Time: Dec 10, 2021 07:22 AM Reporting Lab: [place] [facility] [address] [facility] [address] Performing Lab: [place] [facility] [address] [facility] [address] SODIUM 139 135-145 POTASSIUM 3.7 3.5-5.0 CHLORIDE 107 100-110 CARBON DIOXIDE 24 20-30 ANION GAP 8 4-16 Dec 10, 2021 08:05 AM [place] UREA NITROGEN Specimen Type: PLASMA [facility] Comment: [place] [id number] on Dec 10, 2021@08:31 Tests performed on [employer] (405) SN:[id number] Ordering Provid er: ISATU TODD Report Released Date/Time: Dec 10, 2021 07:22 AM Reporting Lab: [place] [facility] [address] [facility] [address] Performing Lab: [place] [facility] [address] [facility] [address] UREA NITROGEN 8 7-25 Dec 10, 2021 08:05 [place] CREATININE WITH eGFR Specime n Type: PLASMA AM [facility] PANEL Comment: [place] [id number] on Dec 10, 2021@08:31 Tests performed on [employer] (405) SN:[id number] Ordering Provid er: ISATU TODD Report Released Date/Time: Dec 10, 2021 07:22 AM Reporting Lab: [place] [facility] [address] [facility] [address] Performing Lab: [place] [facility] [address] [facility] [address] CREATININE 0.78 0.5-1.5 eGFR(CKD-EPI 2020) >90.0 >60 Dec 10, 2021 08:05 AM [facility] CBC PROFILE Sp ecimen Type: BLOOD No comment enter ed. Ordering Provid er: ISATU TODD Report Released Date/Time: Dec 10, 2021 07:22 AM Reporting Lab: [facility] [facility] [address] [facility] [address] Performing Lab: [place] [facility] [facility] [address] [facility] [address] WBC 7.0 4.5-11.0 RBC 4.54 4.23-5.66 HGB [...] 0.00 0-0 Dec 09, 2021 06:46 AM [facility] MAGNESIUM Sp ecimen Type: PLASMA Comment: Tests performed on Magma HQ (418) SN:[id number] Ordering Provid er: ISATU TODD Report Released Date/Time: Dec 08, 2021 10:23 AM Reporting Lab: [facility] [address] [facility] [address] Performing Lab: [facility] [address] [facility] [address] MAGNESIUM 1.6 1.6-2.6 Dec 09, 2021 06:46 AM [facility] CBC PROFILE Sp ecimen Type: BLOOD No comment enter ed. Ordering Provid er: ISATU TODD Report Released Date/Time: Dec 08, 2021 05:00 PM Reporting Lab: [facility] [address] [facility] [address] Performing Lab: [facility] [address] [facility] [address] WBC 7.1 4.5-11.0 RBC 4.40 4.23-5.66 HGB [...] ABSOLUTE NRBC 0.00 0-0 Dec 09, 2021 [facility] P4 GLU,BUN,CREAT,LYTES,CA Speci men Type: PLASMA 06:46 AM [facility] Comment: Tests performed on Magma HQ (537) SN:[id number] Ordering Provid er: ISATU TODD Report Released Date/Time: Dec 08, 2021 05:00 PM Reporting Lab: [facility] [address] [facility] [address] Performing Lab: [place] [facility] [address] [facility] [address] UREA NITROGEN 6 L 7-25 SODIUM 134 L 135-145 POTASSIUM 3.7 3.5-5.0 CHLORIDE 103 100-110 CARBON DIOXIDE 23 20-30 ANION GAP 8 4-16 GLUCOSE 112 H 65-100 CREATININE 0.70 0.5-1.5 CALCIUM 8.1 L 8.5-10.5 eGFR(CKD-EPI 2020) >90.0 >60 Dec 08, 2021 06:39 AM [facility] MAGNESIUM Sp ecimen Type: PLASMA Comment: Testin g Performed on Pham Sand Worker (405) SN:[id number] Ordering Provid er: ISATU TODD Report Released Date/Time: Dec 07, 2021 10:32 AM Reporting Lab: [facility] [address] [facility] [address] Performing Lab: [facility] [address] [facility] [address] MAGNESIUM 1.5 L 1.6-2.6 Dec 08, 2021 [facility] P4 GLU,BUN,CREAT,LYTES,CA Speci men Type: PLASMA 06:39 AM [facility] Comment: Testin g Performed on Magma HQ (405) SN:[id number] Ordering Provid er: ISATU TODD Report Released Date/Time: Dec 07, 2021 10:32 AM Reporting Lab: [facility] [address] [facility] [address] Per[facility] Lab: [facility] [address] [facility] [address] UREA NITROGEN 6 L 7-25 SODIUM 136 135-145 POTASSIUM 3.3 L 3.5-5.0 CHLORIDE 104 100-110 CARBON DIOXIDE 22 20-30 ANION GAP 10 4-16 GLUCOSE 133 H 65-100 CREATININE 0.76 0.5-1.5 CALCIUM 8.4 L 8.5-10.5 eGFR(CKD-EPI 2020) >90.0 >60 Dec 08, 2021 06:39 AM [facility] CBC PROFILE Sp ecimen Type: BLOOD No comment enter ed. Ordering Provid er: ISATU TODD Report Released Date/Time: Dec 07, 2021 10:32 AM Reporting Lab: [facility] [address] [facility] [address] Performing Lab: [facility] [address] [facility] [address] WBC 8.4 4.5-11.0 RBC 4.75 4.23-5.66 HGB [...] ABSOLUTE NRBC 0.00 0-0 Dec 07, 2021 [facility] P4 GLU,BUN,CREAT,LYTES,CA Speci men Type: PLASMA 06:42 AM [facility] Comment: Tests performed on Magma HQ (405 SN:[id number] Ordering Provid er: PORFIRIO WALTERS Report Released Date/Time: Dec 06, 2021 06:57 PM Reporting Lab: [facility] [address] [facility] [address] Performing Lab: [facility] [address] [facility] [address] UREA NITROGEN 9 7-25 SODIUM 135 135-145 POTASSIUM 3.5 3.5-5.0 CHLORIDE 103 100-110 CARBON DIOXIDE 22 20-30 ANION GAP 10 4-16 GLUCOSE 92 65-100 CREATININE 0.73 0.5-1.5 CALCIUM 8.0 L 8.5-10.5 eGFR(CKD-EPI 2020) >90.0 >60 Dec 07, 2021 06:42 [place] LIVER PROFILE Specimen Typ e: PLASMA AM [facility] Comment: Tests performed on HarQen Sand Worker (405) SN:[id number] Ordering Provid er: PORFIRIO WALTERS Report Released Date/Time: Dec 06, 2021 06:57 PM Reporting Lab: [facility] [address] [facility] [address] Performing Lab: [facility] [address] [facility] [address] PROTEIN, TOTAL 5.7 L 6.0-8.5 ALBUMIN 2.4 L 3.2-5.0 BILIRUBIN, TOTAL 0.4 0.2-1.2 ALKALINE PHOSPHATASE 109 40-150 ALT(SGPT) 10 7-52 AST(SGOT) 15 5-34 FIB-4 SCORE 1.92 <2.67 Dec 07, 2021 06:42 AM [facility] CBC PROFILE Specimen Type: BLOOD [facility] No comment enter ed. Ordering Provid er: PORFIRIO WALTERS Report Released Date/Time: Dec 06, 2021 06:57 PM Reporting Lab: [facility] [address] [facility] [address] Per[facility]: [facility] [address] [facility] [address] WBC 5.7 4.5-11.0 RBC 4.15 L 4.23-5.66 [...] [facility]AM[facility] %) AUTOMATED Comment: Tests performed on Magma HQ (405) SN:[id number] Ordering Provid er: ISATU TODD Report Released Date/Time: Dec 07, 2021 10:28 AM Reporting Lab: [place] [facility] [address] [facility] [address] Performing Lab: [place] [facility] [address] [facility] [address] RETICULOCYTES (%) AUTOMATED 1.23 0. 6-2.0 RETICULOCYTES (ABS) AUTOMATED 0.052 0.030-0.090 Dec 06, 2021 09:45 [place] MRSA SURVL NARES Specimen Ty pe: NARES PM [facility] DNA No comment enter ed. Ordering Provid er: ALVARO VARGHESE Report Released Date/Time: Dec 07, 2021 02:20 AM Reporting Lab: [place] [facility] [address] [facility] [address] Performing Lab: [place] [facility] [address] [facility] [address] MRSA SURVL NARES DNA NEGATIVE NEGATIVE Dec 06, 2021 06:00 [place] URINALYSIS W/REFLEX TO Speci men Type: URINE PM [facility] CULTURE No comment enter ed. Ordering Provid er: JELANI SÁNCHEZ Report Released Date/Time: Dec 06, 2021 11:57 AM Reporting Lab: [place] [facility] [address] [facility] [address] Performing Lab: [place] [facility] [address] [facility] [address] URINE COLOR Ariln YELLOW SPECIFIC GRAVITY 1.029 1.003-1.030 UROBILINOGEN <2.0 [...] 21, R[place] VARIANT Comment: https://www.cdc.gov/coronavirus/2019-ncov/cases-updates/variant- surveillance/variant-info.html The [employer] SARS CoV 2 [employer] Research Assay-GX is a next-generation sequencing [...] samples. The assay is run on the [employer] Sequencer, which performs automated library preparation, sequencing, analysis, and reporting. PM The sequence an alysis includes determination of viral phylogenetic lineage by comparison to the reference strain Wuhan-Hu-1, GenBank: [id number]. Sequence determination may not be possible owing [...] and its performance characteristics determined by the [facility] Molecular [facility], which is certified under the Clinical Laboratory Improveme nt Amendments (C MARCO) as qualified to perform high complexity clinical laboratory testing. This test is validated for clinical use at [facility] and should not be regarded as investigational or for research. The FDA does not require this test to go through premarket FDA review, and therefore it has not been cleared or approved by the FDA. This report was reviewed and approved by the on-service pathologist. Ordering Provid er: JELANI SÁNCHEZ Report Released Date/Time: Dec 06, 2021 01:13 PM Reporting Lab: [place] [facility] [address] [facility] [address] Per[facility]: [facility] [address] [facility] [address] SARS-CoV-2 CLADE() 22C (OMICRON) SARS-CoV-2 LINEAGE() BA.2.12.1 Dec 06, 2021 12:00 [facility] AG SCREEN Specimen Type: NASAL CAVITY PM [facility] PANEL BINAX(405) Comment: Testi ng Performed By: Mike Briscoe Ordering Provid er: JELANI SÁNCHEZ Report Released Date/Time: Dec 08, 2021 08:23 AM Reporting [facility] [address] [facility] [address] Performing [facility]: [facility] [address] [facility] [address] COVID-19 AG SCRN(wrj BINAX) POSITIVE HH NE G Dec 06, 2021 12:00 PM [facility] BNP(P) Sp ecimen Type: PLASMA Comment: Tests performed on Pham Sand Worker (405) [id number] Ordering Provid er: JELANI SÁNCHEZ Report Released Date/Time: Dec 06, 2021 11:57 AM Reporting Lab: [place] [facility] [address] [facility] [address] Performing Lab: [place] [facility] [address] [facility] [address] BNP(P) 224.8 H 10-100 Dec 06, 2021 [place] [facility] GLU,BUN,CREAT,LYTES,CA Speci men Type: PLASMA 12:00 PM [facility] Comment: Testin g Performed on Pham [employer] Worker (405) SN:[id number] Ordering Provid er: JELANI SÁNCHEZ Report Released Date/Time: Dec 06, 2021 11:57 AM Reporting Lab: [place] [facility] [address] [facility] [address] Performing Lab: [place] [facility] [address] [facility] [address] UREA NITROGEN 13 7-25 SODIUM 138 135-145 POTASSIUM 3.8 3.5-5.0 CHLORIDE 103 100-110 CARBON DIOXIDE 23 20-30 ANION GAP 12 4-16 GLUCOSE 105 H 65-100 CREATININE 0.90 0.5-1.5 CALCIUM 8.7 8.5-10.5 eGFR(CKD-EPI 2020) >90.0 >60 Dec 06, 2021 12:00 PM [facility] LIVER PROFILE Sp ecimen Type: PLASMA Comment: Testin g Performed on Pham [employer] Worker (405) SN:[id number] Ordering Provid er: JELANI SÁNCHEZ Report Released Date/Time: Dec 06, 2021 11:57 AM Reporting Lab: [facility] [facility] [address] [facility] [address] Performing Lab: [facility] [address] [facility] [address] PROTEIN, TOTAL 6.6 6.0-8.5 ALBUMIN 2.8 L 3.2-5.0 BILIRUBIN, TOTAL 0.6 0.2-1.2 ALKALINE PHOSPHATASE 134 40-150 ALT(SGPT) 13 7-52 AST(SGOT) 18 5-34 FIB-4 SCORE 1.94 <2.67 Dec 06, 2021 12:00 PM [facility] TROPONIN II Sp ecimen Type: PLASMA Comment: Tests performed on Pham Sand Worker (405) [id number] Ordering Provid er: JELANI SÁNCHEZ Report Released Date/Time: Dec 06, 2021 11:57 AM Reporting Lab: [facility] [address] [facility] [address] Performing Lab: [facility] [address] [facility] [address] TROPONIN II 0.03 0.00-0.29 Dec 06, 2021 [facility] COVID-19+FLU/RSV DIAGNOSTIC Spe cimen Type: NASOPHARYNX 12:00 PM [facility] PANEL(405) Comment: Tests performed on Jelli Genexpert (405) Critical results called to and read back by: ALESHIA WILKINSON RN 12/06/21 @ 1312 Ordering Provid er: JELANI SÁNCHEZ Report Released Date/Time: Dec 06, 2021 11:57 AM Reporting Lab: [facility] [address] [facility] [address] Performing Lab: [place] [facility] [address] [facility] [address] FLU A(PCR) NEGATIVE NEGATIVE FLU B(PCR) NEGATIVE NEGATIVE RSV(PCR) NEGATIVE NEGATIVE COVID-19(NSC-[id number]-[id number]) DETECTED HH NO T DETECTED Dec 06, 2021 12:00 PM [facility] Sp ecimen Type: BLOOD No comment enter ed. Ordering Provid er: JELANI SÁNCHEZ Report Released Date/Time: Dec 06, 2021 11:57 AM Reporting Lab: [facility] [address] [facility] [address] Performing Lab: [facility] [address] [facility] [address] WBC 7.2 4.5-11.0 RBC 4.86 4.23-5.66 HGB [...] 94 122/75 18 /min 97 % 0 CYRUS 2021 09:00 /min mm[Hg] [facility] Dec 10, 0 WHITE 2021 08:57 R[facility] PM T [facility] Dec 10, 0 WHITE 2021 04:17 RIVER PM T [facility] Dec 10, 97.8 F 93 125/74 20 /min 95 % 0 CYRUS 2021 01:40 /min mm[Hg] RIVER PM T [facility] Dec 10, 231.9 32 CYRUS 2021 10:22 lb RIVER AM [facility] Social History: Smoking Status (Most current) [...] QUIT TOBACCO USE > 7 YEARS AGO [facility] Tobacco Use History This section includes a history of the smoking, or tobacco- related health factors, that were collected on or before the date of the Encounter. The data comes from the [place] facility where the Encounter took place. Date/Time Smoking Status/Tobacco Use Comment [facility] Apr 01, 2020 01:16 PM QUIT TOBACCO USE 1-7 YEARS AGO [facility] Mar 24, 2020 03:00 PM QUIT TOBACCO USE 1-7 YEARS AGO [facility] Feb 21, 2019 04:11 PM QUIT TOBACCO USE 1-7 YEARS AGO [facility] Feb 20, 2019 03:38 PM QUIT TOBACCO USE 1-7 YEARS AGO [facility] Feb 03, 2019 09:50 AM QUIT TOBACCO USE 1-7 YEARS AGO [facility] May 25, 2016 11:53 PM QUIT TOBACCO USE IN PAST YEAR [facility] May 23, 2016 06:57 PM QUIT TOBACCO USE > 7 YEARS AGO [facility] May 19, 2016 03:55 PM QUIT TOBACCO USE IN PAST YEAR [facility] May 19, 2016 10:29 AM QUIT TOBACCO USE 1-7 YEARS AGO [facility] May 01, 2016 07:26 PM QUIT [facility]BACCO [facility]AR [facility] May 01, 2016 03:11 PM QUIT TOBACCO USE IN PAST YEAR [facility] May 01, 2016 11:19 AM QUIT TOBACCO USE IN PAST YEAR [facility] Mar 16, 2016 12:50 PM V1-PT DECLINES REF TO TOBACCO [facility] CESS PRGM Mar 16, 2016 12:50 PM V1-PT THINKING ABOUT QUIT [facility] TOBACCO USE Aug 12, 2015 08:48 AM CURRENT SMOKER [facility] Radiology Reports: +/- 30 days of [...] W/WO CONTRAST: MARYELLEN LONG LUCAS LARES N [id number] -1950 [facility] Exm Date: DEC 13, 2021@12:57 Req Phys: ISATU TODD Loc: OP Unknown/0 12-15-2021@13:20 Img Loc: MRI IMAGING (OOS) Service: [facility] MEDICINE (Case [id number] COMPLETE) MRI ABDOMEN W/WO CONTRAST (M RI Detailed) CPT:14349 Reason for Study: further characterization of a [...] new lyphadenopathy REQUESTING MD: Isatu Todd PAGER: [phone] PHONE: [phone] Weight: 232.2 lb [105.32 kg] (12/12/2021 05:00) [...] will need to arrange for a otr company driver to take him/her home after the [...] 15, 2021 Date Verified: DEC 15, 2021 Vending Machine Host/Hostess E-Sig:/ES/MARYELLEN LONG Report: MRI ABDOMEN W/WO CONTRAST [...] MALIGNANCY Primary Interpreting Staff: Staff AMELIA THOMAS (Vending Machine Host/Hostess) / Dec 10, 2021 09:[address] ABDOMEN & PELVIS: RADIOLOGY,OUTSIDE [facility] LUCAS MEEK N [id number] -1950 M [facility] Exm Date: DEC 10, 2021@09:30 Req Phys: ISATU TODD Loc: MED/12-10@10:57 Img Loc: CT SCAN (OOS) Service: [facility] MEDICINE (Case [id number] COMPLETE) CT ABD & PELVIS WITHOUT CONT RAST (CT Detailed) CPT:78043 Reason for Study: 71 yo male with [...] RADIOLOGY [phone] to speak to the appropriate automotive brake technician. Report Status: Verified Date Reported: DEC 10, 2021 Date Verified: DEC 10, 2021 Vending Machine Host/Hostess E-Sig: Report: EXAM: CT abdomen and pelvis [...] ph nodes. READING PHYSICIAN: Ramone Munoz D.O. -[phone] 12/10/2021 10:55 EDT [facility] National Teleradiology Program [phone] (For Medical Practitioner Use Only ) [address], [facility] [address], [address] [place] [address] Attention Patients / Veterans: If you have ques tions or concerns about these test results, please contact your [facility] provider or primary care team. Primary Diagnostic Code: SIGNIFICANT ABNORMALIT Y, ATTN NEEDED Primary Interpreting Staff: RADIOLOGY,OUTSIDE SERVICE, Staff Physician / Dec 09, 2021 07:34 AM BASW (MODIFIED): JESSIE CHENEY [facility] LUCAS MEEK N [id number] -1950 M [facility] Exm Date: DEC 09, 2021@07:34 Req Phys: ISATU TODD Loc: 1S MED/12-09@11:26 Img Loc: XRAY (OOS) Service: [facility] MEDICINE (Case [id number] COMPLETE) BASW (MODIFIED) (RAD Detaile d) CPT:55589 Contrast Media : Barium Reason for Study: dysphagia ?esophageal spasm Clinical History: Report Status: Verified Date Reported: DEC 09, 2021 Date Verified: DEC 09, 2021 Vending Machine Host/Hostess E-Sig:/ES/JESSIE CHENEY Report: BASW (MODIFIED) , 12/09/2021 [...] REQUIRED Primary Interpreting Staff: JESSIE CHENEY, RADIOLOGIST (Vending Machine Host/Hostess) /TLC Dec 06, 2021 12:[address] CHEST (INCLUDES ADRENALS): JESSIE CHENEY [facility] LUCAS MEEK N [id number] -1950 M [facility] Exm Date: DEC 06, 2021@12:59 Req Phys: GONZALOJELANI Loc: [facility] ED DAYS M 1RD (Req'g Loc) Img Loc: CT SCAN (OOS) Service: Unknown (Case [id number] COMPLETE) CT THORAX W/O CONT (CT Detai led) CPT:47602 Reason for Study: Opacification right chest Clinical History: No contrast allergy BUN: 13 (12/06/21 12:00) CREATI: 0.90 (12/06/21 12:00) eGFR 05/16/21 09:43 52 L Weight: 232.6 lb [105.51 kg] (12/06/2021 11:40) BODY MASS INDEX - NO HEIGHTS FOUND Pager number: [phone] STAT orders MUST be called t o RADIOLOGY [phone] to speak to the appropriate automotive brake technician. Indications - Other: Opacification right chest, covid positive, lung cancer histo Report Status: Verified Date Reported: DEC 06, 2021 Date Verified: DEC 06, 2021 Vending Machine Host/Hostess E-Sig:/ES/JESSIE CHENEY Report: CT THORAX W/O CONT [...] REQUIRED Primary Interpreting Staff: JESSIE CHENEY, RADIOLOGIST (Vending Machine Host/Hostess) Primary Interpreting Resident: PRINCE CHAMPION, Resident /BR Dec 06, 2021 11:58 AM CHEST SINGLE VIEW: JESSIE CHENEY DOUGLAS N [id number] -1950 M [facility] Exm Date: DEC 06, 2021@11:58 Req Phys: JELANI SÁNCHEZ Pat Loc: [facility] ED DAYS M 1RD (Req'g Loc) Img Loc: XRAY (OOS) Service: Unknown (Case [id number] COMPLETE) CHEST SINGLE VIEW (RAD Detai led) CPT:72873 Proc Modifiers : PORTABLE EXAM Reason for Study: SOB, home covid test positive Clinical History: Report Status: Verified Date Reported: DEC 06, 2021 Date Verified: DEC 06, 2021 Vending Machine Host/Hostess E-Sig:/ES/JESSIE CHENEY Report: Exam type: Chest x-ray [...] REQUIRED Primary Interpreting Staff: JESSIE CHENEY, RADIOLOGIST (Vending Machine Host/Hostess) /TLC Pathology Reports: +/- 30 days of [...] comes from all [place] treatment facilities. Date/Time Pathology Report Provider Source Jan 03, 2022 10:28 AM LR SURGICAL PATHOLOGY REPORT: STEFANY MILLER LOCAL TITLE: LR SURGICAL PATHOLOGY REPORT [facility] STANDARD TITLE: PATHOLOGY REPORT DATE OF NOTE: JAN 03, 2022@10:28:01 ENTRY DATE: JAN 03, 2022@10:28:01 AUTHOR: NIURKA MILLER EXP COSIGNER: URGENCY: STATUS: COMPLETED $APHDR Reporting Lab: [facility] [CLIA# [id number]] [address] [place] [address] - - - - - - [...] automatically d ocumented from SURGERY package case #[id number] Field (#32) PRINCIPAL PRE-OP DIAGNOSIS, (#.72) OTHER [...] automatically d ocumented from SURGERY package case #[id number] Field (#34) PRINCIPAL POST-OP DIAG, (#.74) OTHER [...] Label: Lucas Meek Paperwork: Lucas Meek Cassette: [id number];..;KALYANI;.;405;[phone] Specimen is labeled: ES bx Received in formalin are several pieces of pale boyd and brown tissue, 1.2 x 0.7 cm in aggregate. Submitted entirely in 1 cassette [id number];..;KALYANI;.;405;[id number] SAW 12/15/2021 Microscopic exam: *+* MODIFIED REPORT *+* (Last modified: JAN 03, 2022@09:30:20 typed by NIURKA WADDELL) DIAGNOSIS: A. 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 Kendell long. TIARA Coombs was notified on 12/21/21. Modified on 01/03/22 to include report from [facility] stating that tumor is NEGATIVE for her2/ matheus amplification. The attending pathologist who signature mansoor ears on this report has reviewed all diagnostic slides and has edited t he gross and/or microscopic portion of this report in rendering the final pathologic diagnosis. [address] [address] CPT: 37701 /emely/ NIURKA Yeung MD Signed Jan 03, 2022@10:28 Performing Laboratory: Surgical Pathology Report Performed By: [facility] [CLIA# [id number]] [address] [place] [address] $FTR - - - - - [...] - - LUCAS MEEK STANDARD FORM 515 ID:[id number] SEX:M :1950 AGE: 71 LOC: SDM END PCP: Isatu Todd /emely/ NIURKA MILLER Staff Signed: 01/03/2022 10:28 Dec 21, 2021 11:46 AM LR SURGICAL PATHOLOGY REPORT: STEFANY MILLER [facility] LOCAL TITLE: LR SURGICAL PATHOLOGY REPORT [facility] STANDARD TITLE: PATHOLOGY REPORT DATE OF NOTE: DEC 21, 2021@11:46:59 ENTRY DATE: DEC 21, 2021@11:46:59 AUTHOR: NIURKA MILLER EXP COSIGNER: URGENCY: STATUS: COMPLETED $APHDR Reporting Lab: [facility] [CLIA# [id number]] [address] [place] [facility] [address] - - - - - - [...] automatically d ocumented from SURGERY package case #[id number] Field (#32) PRINCIPAL PRE-OP DIAGNOSIS, (#.72) OTHER [...] automatically d ocumented from SURGERY package case #[id number] Field (#34) PRINCIPAL POST-OP DIAG, (#.74) OTHER [...] Label: Lucas Meek Paperwork: Lucas Meek Cassette: [id number];..;KALYANI;.;256;[phone] Specimen is labeled: ES bx Received in formalin are several pieces of pale boyd and brown tissue, 1.2 x 0.7 cm in aggregate. Submitted entirely in 1 cassette [id number];..;KALYANI;.;405;[id number] SAW 12/15/2021 Microscopic exam: DIAGNOSIS: A. 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 Kendell long. TIARA Coombs was notified on 12/21/21. The attending pathologist who signature mansoor ears on this report has reviewed all diagnostic slides and has edited t he gross and/or microscopic portion of this report in rendering the final pathologic diagnosis. [address] [address] CPT: 79166 /eemly/ NIURKA Yeung MD Signed Dec 21, 2021@11:46 Performing Laboratory: Surgical Pathology Report Performed By: [facility] [CLIA# [id number]] [address] [place] [address] $FTR - - - - - [...] - - LUCAS MEEK STANDARD FORM 515 ID:[id number] SEX:M :1950 AGE: 71 LOC: [facility] END PCP: Isatu Todd /charmaine Yeung MD Signed: 12/21/2021 11:46 Dec 06, 2021 03:30 PM LR MICROBIOLOGY REPORT: [facility] Reporting Lab: [facility] [CLIA# [id number]] [address] [place] [address] Accession [UID]: [id number] [[id number]] Receiv ed: Dec 06, 2021@16:14 Collection sample: BLOOD CUL T BOTTLE(NIRMAL/AERO)Collection date: Dec 06, 2021 15:30 Site/Specimen: BLOOD Provider: JELANI SÁNCHEZ Comment on specimen: LAC Test(s) ordered: BLOOD CULTURE ANAEROBI C....... completed: Dec 12, 2021 06:18 * BACTERIOLOGY FINAL REPORT => Dec 12, 2021 06:1 8 TECH CODE: [id number] Bacteriology Remark(s): NO GROWTH IN 5 DAYS =--=--=--=--=--=--=--=--=--=--=--=--=--= --=--=--=--=--=--=--=--=--=--=--=--=-- Performing Laboratory: Bacteriology Report Performed By: [facility] [CLIA# [id number]] [address] [place] [address] Dec 06, 2021 03:30 PM LR MICROBIOLOGY REPORT: [facility] Reporting Lab: [facility] [CLIA# [id number]] [address] [place] [address] Accession [UID]: [id number] [[id number]] Receiv ed: Dec 06, 2021@16:14 Collection sample: BLOOD CUL T BOTTLE(NIRMAL/AERO)Collection date: Dec 06, 2021 15:30 Site/Specimen: BLOOD Provider: JELANI SÁNCHEZ Comment on specimen: LAC Test(s) ordered: BLOOD CULTURE AEROBIC. ........ completed: Dec 12, 2021 06:17 * BACTERIOLOGY FINAL REPORT => Dec 12, 2021 06:1 7 TECH CODE: [id number] Bacteriology Remark(s): NO GROWTH IN 5 DAYS =--=--=--=--=--=--=--=--=--=--=--=--=--= --=--=--=--=--=--=--=--=--=--=--=--=-- Performing Laboratory: Bacteriology Report Performed By: [facility] [CLIA# [id number]] [address] [place] [address]
--- OUTSIDE RECORDS SUMMARY | 2022-01-19 08:36 | XMS_ITS ---
DAILY HOSPITALIZATION DATA [facility] Encounter Summary Created on:December 10, 2021 Patient:LUCAS MEEK Sex:Male :1950 Author Organization [facility] Address [address] [place] [id number] Support Name Relationship Address Phone YUSRA MEEK Unavailable [address] [place] [address] YUSRA MEEK Unavailable [address] [place] [address] CLAY MOSLEY Unavailable Unavailable SJ SANTACRUZ Unavailable [...] MEDICARE MEDICARE PART Jun 18, PART B [id number] DO KALYANI PATIENT (WNR) (M) B 2016 VH81 2 UGLAS MEDICARE MEDICARE PART Jun 18, PART A [id number] MEEK DO PATIENT (WNR) (M) A 2017 VH81 2 [place]AS MEDICARE MEDICARE PART Jun 18, PART B [id number] MEEK DO PATIENT (WNR) (M) B 2016 13A 1 U[place]AS MEDICARE MEDICARE PART Jun 18, PART A [id number] DO KALYANI PATIENT (WNR) (M) A 2016 13A 1 LAS UNITED MEDICARE MCR(Jun 18 [id number] Luz MEEK PATIENT HEALTHCARE ADVANTAGE NR) 2021 37 0 [facility] (WNR) Selected Encounter This section includes the information on record at [place] for the Encounter. Date/Time Encounter Type Encounter Description Reason Provider Source Dec 10, 2021 10:19 Inpatient Visit DAILY HOSPITALIZATION DATA AM [facility] Encounter Template Text not used by [place] [...] The data comes from all [place] treatment facilities. Appointment Date/Time Appointment Type Appointment Facili ty Name Dec 21, 2021 08:00 AM AM[place] [facility] Jan 06, 2022 02:00 PM [place] [facility] Jan 10, 2022 11:30 AM [facility] - MEDICINE [facility] Jan 24, 2022 08:00 AM [place] [facility] Feb 21, 2022 10:00 AM [place] [facility] Mar 21, 2022 10:30 AM AMBULATORY [...] The data comes from all [place] treatment [facility]. Test Date/Time Test Type Test Details Facility Name October 31, 2021 07:37 AM Consult Order COMMUNITY CARE-EGD [facility] Cons Lead Section Supervisor's Choice November 15, 2021 10:37 AM Consult Order [facility] CARE-PODIATRY Cons Lead Section Supervisor's Choice Dec 06, 2021 12:52 PM [place]acy [place] Infusion Order [facility] Dec 06, 2021 03:24 PM [place]acy [place] [facility] Dec 06, 2021 03:40 PM [place]acy [place] [facility] Dec 15, 2021 08:41 AM Consult Order SPEECH PATHOLOGY [place] OUT[place] Cons [facility] Lead Section Supervisor's Choice Jan 15, 2022 10:08 PM Consult Order [facility] CARE-PALLIATIVE CARE Cons Lead Section Supervisor's Choice Lab Results: +/- 30 days of [...] Reference Range Comment Dec 15, 2021 [place] P4 GLU,BUN,CREAT,LYTES,CA Speci men Type: PLASMA 06:43 AM [facility] Comment: Tests performed on [employer] (405) SN:[id number] Ordering Provid er: ISATU TODD Report Released Date/Time: Dec 11, 2021 07:42 AM Reporting Lab: [facility] [address] [facility] [address] Performing Lab: [facility] [address] [facility] [address] UREA NITROGEN 9 7-25 SODIUM 137 135-145 POTASSIUM 3.8 3.5-5.0 CHLORIDE 105 100-110 CARBON DIOXIDE 26 20-30 ANION GAP 6 4-16 GLUCOSE 102 H 65-100 CREATININE 0.64 0.5-1.5 CALCIUM 8.1 L 8.5-10.5 eGFR(CKD-EPI 2020) >90.0 >60 Dec 15, 2021 06:43 AM [facility] CBC PROFILE Sp ecimen Type: BLOOD No comment enter ed. Ordering Provid er: ISATU TODD Report Released Date/Time: Dec 10, 2021 07:22 AM Reporting Lab: [facility] [address] [facility] [address] Performing Lab: [facility] [address] [facility] [address] WBC 5.7 4.5-11.0 RBC 4.22 L 4.23-5.66 [...] ABSOLUTE NRBC 0.00 0-0 Dec 14, 2021 [place] [facility] CYTOGENETIC Specimen Type: ESOPHAGUS 02:59 PM [facility] FISH([facility]) Comment: ~For T est: CYTOGENETIC FISH([facility]) ~FISH HER 2 NUE, FFPE See full report in Partender Image display viewer/tab#LAB-Reference Ordering Provid er: NIURKA MILLER Report Released Date/Time: Dec 21, 2021 12:11 PM Reporting Lab: [facility] [address] [facility] [address] Performing Lab: [facility] CYTOGENETIC FISH([facility]) comment Dec 14, 2021 06:27 AM [facility] CBC PROFILE Sp ecimen Type: BLOOD No comment enter ed. Ordering Provid er: ISATU TODD Report Released Date/Time: Dec 10, 2021 07:22 AM Reporting Lab: [facility] [address] [facility] [address] Performing Lab: [facility] [address] [facility] [address] WBC 6.0 4.5-11.0 RBC 4.29 4.23-5.66 HGB [...] 06:27 AM [facility] Comment: Tests performed on [employer] (405) SN:[id number] Ordering Provid er: ISATU TODD Report Released Date/Time: Dec 11, 2021 07:42 AM Reporting Lab: [facility] [address] [facility] [address] [facility]: [facility] [address] [facility] [address] UREA NITROGEN 10 7-25 SODIUM 137 135-145 POTASSIUM 4.0 3.5-5.0 CHLORIDE 104 100-110 CARBON DIOXIDE 25 20-30 ANION GAP 8 4-16 GLUCOSE 99 65-100 CREATININE 0.67 0.5-1.5 CALCIUM 8.2 L 8.5-10.5 eGFR(CKD-EPI 2020) >90.0 >60 Dec 13, 2021 [facility] P4 GLU,BUN,CREAT,LYTES,CA Speci men Type: PLASMA 06:34 AM [facility] Comment: Tests performed on [employer] (405) SN:[id number] Ordering Provid er: ISATU TODD Report Released Date/Time: Dec 11, 2021 07:42 AM Reporting [facility] [address] [facility] [address] [facility]: [facility] [address] [facility] [address] UREA NITROGEN 12 7-25 SODIUM 136 135-145 POTASSIUM 3.9 3.5-5.0 CHLORIDE 105 100-110 CARBON DIOXIDE 24 20-30 ANION GAP 7 4-16 GLUCOSE 102 H 65-100 CREATININE 0.66 0.5-1.5 CALCIUM 8.3 L 8.5-10.5 eGFR(CKD-EPI 2020) >90.0 >60 Dec 13, 2021 06:34 AM [facility] CBC PROFILE Sp ecimen Type: BLOOD No comment enter ed. Ordering Provid er: ISATU TODD Report Released Date/Time: Dec 10, 2021 07:22 AM Reporting Lab: [facility] [address] [facility] [address] Performing Lab: [facility] [address] [facility] [address] WBC 5.6 4.5-11.0 RBC 4.28 4.23-5.66 HGB [...] Speci men Type: PLASMA 06:21 AM [facility] Comment: Tests performed on [employer] (405) SN:[id number] Ordering Provid er: ISATU TODD Report Released Date/Time: Dec 11, 2021 07:42 AM Reporting Lab: [facility] [address] [facility] [address] Performing Lab: [facility] [address] [facility] [address] UREA NITROGEN 11 7-25 SODIUM 139 135-145 POTASSIUM 4.1 3.5-5.0 CHLORIDE 107 100-110 CARBON DIOXIDE 24 20-30 ANION GAP 8 4-16 GLUCOSE 110 H 65-100 CREATININE 0.70 0.5-1.5 CALCIUM 8.3 L 8.5-10.5 eGFR(CKD-EPI 2020) >90.0 >60 Dec 12, 2021 06:21 AM [facility] CBC PROFILE Sp ecimen Type: BLOOD No comment enter ed. Ordering Provid er: ISATU TODD Report Released Date/Time: Dec 10, 2021 07:22 AM Reporting Lab: [facility] [address] [facility] [address] [facility] Lab: [facility] [address] [facility] [address] WBC 5.5 4.5-11.0 RBC 4.37 4.23-5.66 HGB [...] 0.00 0-0 Dec 12, 2021 06:00 AM [employer] [facility] MAGNESIUM Sp ecimen Type: PLASMA Comment: Testin g Performed on [employer] (405) SN:[id number] Ordering Provid er: ISATU TODD Report Released Date/Time: Dec 12, 2021 08:24 AM Reporting Lab: [place] [employer] [address] [facility] [address] Performing Lab: [facility] [place] [employer] [address] [facility] [address] MAGNESIUM 1.8 1.6-2.6 Dec 12, 2021 06:00 AM [employer] PHOSPHORUS Sp ecimen Type: PLASMA Comment: Testin g Performed on [employer] (405) SN:[id number] Ordering Provid er: ISATU TODD Report Released Date/Time: Dec 12, 2021 08:24 AM Reporting Lab: [place] [employer] [facility] [address] [facility] [address] Performing Lab: [place] [employer] [address] [facility] [address] PHOSPHORUS 3.1 2.5-5.0 Dec 11, 2021 06:15 AM [place] [employer] ELECTROLYTES Sp ecimen Type: PLASMA Comment: Tests performed on [employer] (405) SN:[id number] Ordering Provid er: ISATU TODD Report Released Date/Time: Dec 10, 2021 07:22 AM Reporting Lab: [place] [employer] [facility] [address] [facility] [address] Performing Lab: [place] [employer] [facility] [address] [facility] [address] SODIUM 137 135-145 POTASSIUM 4.3 3.5-5.0 CHLORIDE 108 100-110 CARBON DIOXIDE 20 20-30 ANION GAP 9 4-16 Dec 11, 2021 06:15 AM [place] [employer] [facility] CBC PROFILE Sp ecimen Type: BLOOD Comment: Result s checked Ordering Provid er: ISATU TODD Report Released Date/Time: Dec 10, 2021 07:22 AM Reporting Lab: [place] OMEGAT [facility] [address] [facility] [address] Performing Lab: [facility] O[facility]GAT [facility] [address] [facility] [address] WBC 5.8 4.5-11.0 RBC 4.37 4.23-5.66 HGB [...] ecimen Type: PLASMA Comment: Tests performed on [employer] (252) SN:[id number] Results checked Ordering Provid er: ISATU TODD Report Released Date/Time: Dec 11, 2021 07:44 AM Reporting Lab: [facility] [address] [facility] [address] Performing Lab: [place] OMEGAT TXMROC [address] [facility] [address] PHOSPHORUS 3.0 2.5-5.0 Dec 10, 2021 08:05 AM [place] [facility] MAGNESIUM Sp ecimen Type: PLASMA Comment: [place] [id number] on Dec 10, 2021@08:31 Tests performed on [employer] (405) SN:[id number] Ordering Provid er: ISATU TODD Report Released Date/Time: Dec 10, 2021 07:22 AM Reporting Lab: [place] [facility] [address] [facility] [place] [address] Performing Lab: [place] [facility] [address] [facility] [place] [address] MAGNESIUM 1.7 1.6-2.6 Dec 10, 2021 08:05 AM [place] [facility] PHOSPHORUS Sp ecimen Type: PLASMA Comment: [place] [id number] on Dec 10, 2021@08:31 Tests performed on [employer] (405) SN:[id number] Ordering Provid er: ISATU TODD Report Released Date/Time: Dec 10, 2021 07:22 AM Reporting Lab: [place] [facility] [address] [facility] [place] [address] Performing Lab: [place] [facility] [address] [facility] [place] [address] PHOSPHORUS 1.8 L 2.5-5.0 Dec 10, 2021 08:05 AM [place] [facility] GLUCOSE Sp ecimen Type: PLASMA Comment: [place] [id number] on Dec 10, 2021@08:31 Tests performed on [employer] (405) SN:[id number] Ordering Provid er: ISATU TODD Report Released Date/Time: Dec 10, 2021 07:22 AM Reporting Lab: [place] [facility] [address] [facility] [place] [address] Performing Lab: [place] [facility] [address] [facility] [place] [address] GLUCOSE 144 H 65-100 Dec 10, 2021 08:05 AM [place] [facility] CALCIUM Sp ecimen Type: PLASMA Comment: [place] [id number] on Dec 10, 2021@08:31 Tests performed on [employer] (405) SN:[id number] Ordering Provid er: ISATU TODD Report Released Date/Time: Dec 10, 2021 07:22 AM Reporting Lab: [place] [facility] [address] [facility] [place] [address] Performing Lab: [place] [facility] [address] [facility] [address] CALCIUM 8.3 L 8.5-10.5 Dec 10, 2021 08:05 AM [place] [facility] ELECTROLYTES Sp ecimen Type: PLASMA Comment: [place] [id number] on Dec 10, 2021@08:31 Tests performed on [employer] (405) SN:[id number] Ordering Provid er: ISATU TODD Report Released Date/Time: Dec 10, 2021 07:22 AM Reporting Lab: [place] [facility] [address] [facility] [address] Performing Lab: [place] [facility] [address] [facility] [address] SODIUM 139 135-145 POTASSIUM 3.7 3.5-5.0 CHLORIDE 107 100-110 CARBON DIOXIDE 24 20-30 ANION GAP 8 4-16 Dec 10, 2021 08:05 AM [place] UREA NITROGEN Specimen Type: PLASMA [facility] Comment: [place] [id number] on Dec 10, 2021@08:31 Tests performed on [employer] (405) SN:[id number] Ordering Provid er: ISATU TODD Report Released Date/Time: Dec 10, 2021 07:22 AM Reporting Lab: [place] [facility] [address] [facility] [address] Performing Lab: [place] [facility] [address] [facility] [address] UREA NITROGEN 8 7-25 Dec 10, 2021 08:05 [place] CREATININE WITH eGFR Specime n Type: PLASMA AM [facility] PANEL Comment: [place] [id number] on Dec 10, 2021@08:31 Tests performed on [employer] (405) SN:[id number] Ordering Provid er: ISATU TODD Report Released Date/Time: Dec 10, 2021 07:22 AM Reporting Lab: [place] [facility] [address] [facility] [address] Performing Lab: [place] [facility] [address] [facility] [address] CREATININE 0.78 0.5-1.5 eGFR(CKD-EPI 2020) >90.0 >60 Dec 10, 2021 08:05 AM [facility] CBC PROFILE Sp ecimen Type: BLOOD No comment enter ed. Ordering Provid er: ISATU TODD Report Released Date/Time: Dec 10, 2021 07:22 AM Reporting Lab: [place] [facility]GAT [facility] [address] [facility] [address] Performing Lab: [place] [facility] [address] [facility] [address] WBC 7.0 4.5-11.0 RBC 4.54 4.23-5.66 HGB [...] ecimen Type: PLASMA Comment: Tests performed on [employer] (368) SN:[id number] Ordering Provid er: ISATU TODD Report Released Date/Time: Dec 08, 2021 10:23 AM Reporting Lab: [facility] [address] [facility] [address] Performing Lab: [facility] [address] [facility] [address] MAGNESIUM 1.6 1.6-2.6 Dec 09, 2021 [facility] P4 GLU,BUN,CREAT,LYTES,CA Speci men Type: PLASMA 06:46 AM [facility] Comment: Tests performed on [employer] (405) SN:[id number] Ordering Provid er: ISATU TODD Report Released Date/Time: Dec 08, 2021 05:00 PM Reporting Lab: [facility] [address] [facility] [address] Performing Lab: [facility] [address] [facility] [address] UREA NITROGEN 6 L 7-25 SODIUM 134 [...] [facility] [address] [facility] [address] Performing Lab: [facility] [address] [facility] [address] WBC 7.1 4.5-11.0 RBC 4.40 4.23-5.66 HGB [...] 0.00 0-0 Dec 08, 2021 06:39 AM [place] [employer] T [facility] MAGNESIUM Sp ecimen Type: PLASMA Comment: Testin g Performed on [employer] (405) SN:[id number] Ordering Provid er: ISATU TODD Report Released Date/Time: Dec 07, 2021 10:32 AM Reporting Lab: [facility] [address] [facility] [address] Performing Lab: [facility] [address] [facility] [address] MAGNESIUM 1.5 L 1.6-2.6 Dec 08, 2021 [place] [employer] T P4 GLU,BUN,CREAT,LYTES,CA Speci men Type: PLASMA 06:39 AM [facility] Comment: Testin g Performed on [employer] (405) SN:[id number] Ordering Provid er: ISATU TODD Report Released Date/Time: Dec 07, 2021 10:32 AM Reporting Lab: [employer] T [facility] [address] [facility] [address] Performing Lab: [facility] [address] [facility] [address] UREA NITROGEN 6 L 7-25 SODIUM 136 135-145 POTASSIUM 3.3 L 3.5-5.0 CHLORIDE 104 100-110 CARBON DIOXIDE 22 20-30 ANION GAP 10 4-16 GLUCOSE 133 H 65-100 CREATININE 0.76 0.5-1.5 CALCIUM 8.4 L 8.5-10.5 eGFR(CKD-EPI 2020) >90.0 >60 Dec 08, 2021 06:39 AM [place] [employer] T [facility] CBC PROFILE Sp ecimen Type: BLOOD No comment enter ed. Ordering Provid er: ISATU TODD Report Released Date/Time: Dec 07, 2021 10:32 AM Reporting Lab: [facility] [address] [facility] [address] Performing Lab: [facility] [address] [facility] [address] WBC 8.4 4.5-11.0 RBC 4.75 4.23-5.66 HGB [...] Speci men Type: PLASMA 06:42 AM [facility] Comment: Tests performed on [employer] (405 SN:[id number] Ordering Provid er: PORFIRIO WALTERS Report Released Date/Time: Dec 06, 2021 06:57 PM Reporting Lab: [facility] [address] [facility] [address] Performing Lab: [facility] [address] [facility] [address] UREA NITROGEN 9 7-25 SODIUM 135 135-145 POTASSIUM 3.5 3.5-5.0 CHLORIDE 103 100-110 CARBON DIOXIDE 22 20-30 ANION GAP 10 4-16 GLUCOSE 92 65-100 CREATININE 0.73 0.5-1.5 CALCIUM 8.0 L 8.5-10.5 eGFR(CKD-EPI 2020) >90.0 >60 Dec 07, 2021 06:42 [place] LIVER PROFILE Specimen Typ e: PLASMA AM [facility] Comment: Tests performed on [employer] (405) SN:[id number] Ordering Provid er: PORFIRIO WALTERS Report Released Date/Time: Dec 06, 2021 06:57 PM Reporting Lab: [facility] [address] [facility] [address] Performing Lab: [facility] [address] [facility] [address] PROTEIN, TOTAL 5.7 L 6.0-8.5 ALBUMIN 2.4 L 3.2-5.0 BILIRUBIN, TOTAL 0.4 0.2-1.2 ALKALINE PHOSPHATASE 109 40-150 ALT(SGPT) 10 7-52 AST(SGOT) 15 5-34 FIB-4 SCORE 1.92 <2.67 Dec 07, 2021 06:42 AM [place] [facility] CBC PROFILE Specimen Type: BLOOD [facility] No comment enter ed. Ordering Provid er: PORFIRIO WALTERS Report Released Date/Time: Dec 06, 2021 06:57 PM Reporting Lab: [facility] [address] [facility] [address] Performing Lab: [facility] [address] [facility] [address] WBC 5.7 4.5-11.0 RBC 4.15 L 4.23-5.66 [...] [facility] %) AUTOMATED Comment: Tests performed on [employer] (405) SN:[id number] Ordering Provid er: ISATU TODD Report Released Date/Time: Dec 07, 2021 10:28 AM Reporting Lab: [place] [facility] [address] [facility] [address] Performing Lab: [place] [facility] [address] [facility] [address] RETICULOCYTES (%) AUTOMATED 1.23 0. 6-2.0 RETICULOCYTES (ABS) AUTOMATED 0.052 0.030-0.090 Dec 06, 2021 09:45 [place] MRSA SURVL NARES Specimen Ty pe: NARES PM [facility] DNA No comment enter ed. Ordering Provid er: ALVARO VARGHESE Report Released Date/Time: Dec 07, 2021 02:20 AM Reporting Lab: [place] [facility] [address] [facility] [address] Performing Lab: [place] [facility] [address] [facility] [address] MRSA SURVL NARES DNA NEGATIVE NEGATIVE Dec 06, 2021 06:00 [place] URINALYSIS W/REFLEX TO Speci men Type: URINE PM [facility] CULTURE No comment enter ed. Ordering Provid er: JELANI SÁNCHEZ Report Released Date/Time: Dec 06, 2021 11:57 AM Reporting Lab: [place] [facility] [address] [facility] [address] Performing Lab: [place] [facility] [address] [facility] [address] URINE COLOR Arlin YELLOW SPECIFIC GRAVITY 1.029 [...] 21, RIVER VARIANT Comment: https://www.cdc.gov/coronavirus/2019-ncov/cases-updates/variant- surveillance/variant-info.html [employer] SARS CoV 2 [employer] Research Assay-GX is a next-generation sequencing (NGS) assa 2021 [facility] SEQUENCING y that determine s the complete genome sequence of the SARS-CoV-2 virus. The assay contains variant-tolerant primers to broaden and improve the coverage for variant detection and increase the sensitivity 12:00 [facility] PNL(WH) of the panel to enable detection from lower viral titer samples. The assay is run on the [employer] Sequencer, which performs automated library preparation, sequencing, analysis, and reporting. PM The sequence an alysis includes determination of viral phylogenetic lineage by comparison to the reference strain Wuhan-Hu-1, GenBank: [id number]. Sequence determination may not be possible owing [...] and its performance characteristics determined by the [facility] Molecular Diagnostics Laboratory, which is certified under the Clinical Laboratory Improveme nt Amendments (C MARCO) as qualified to perform high complexity clinical laboratory testing. This test is validated for clinical use at [facility] and should not be regarded [...] [facility] [address] [facility] [address] Performing Lab: [facility] [address] [facility] [address] SARS-CoV-2 CLADE() 22C (OMICRON) SARS-CoV-2 LINEAGE() BA.2.12.1 Dec 06, 2021 12:00 [facility] COVID-19 AG SCREEN Specimen Type: NASAL CAVITY PM [facility] PANEL [employer]INAX(405) Comment: Testi ng Performed By: Mike Briscoe Ordering Provid er: JELANI SÁNCHEZ Report Released Date/Time: Dec 08, 2021 08:23 AM Reporting Lab: [facility] [address] [facility] [address] Performing Lab: [facility] [address] [facility] [address] COVID-19 AG SCRN(wrj BINAX) POSITIVE HH NE G Dec 06, 2021 12:00 PM [facility] TROPONIN II Sp ecimen Type: PLASMA Comment: Tests performed on [employer]iance Specialist (405) SN:[id number] Ordering Provid er: JELANI SÁNCHEZ Report Released Date/Time: Dec 06, 2021 11:57 AM Reporting Lab: [facility] [address] [facility] [place] [address] Performing Lab: [facility] [address] [facility] [address] TROPONIN II 0.03 0.00-0.29 Dec 06, 2021 12:00 PM [facility] LIVER PROFILE Sp ecimen Type: PLASMA Comment: Testin g Performed on [employer] Compliance Specialist ([id number]) [id number] Ordering Provid er: JELANI SÁNCHEZ Report Released Date/Time: Dec 06, 2021 11:57 AM Reporting Lab: [facility] [address] [facility] [address] Performing Lab: [facility] [address] [facility] [address] PROTEIN, TOTAL 6.6 6.0-8.5 ALBUMIN 2.8 L 3.2-5.0 BILIRUBIN, TOTAL 0.6 0.2-1.2 ALKALINE PHOSPHATASE 134 40-150 ALT(SGPT) 13 7-52 AST(SGOT) 18 5-34 FIB-4 SCORE 1.94 <2.67 Dec 06, 2021 [facility] [place] P4 GLU,BUN,CREAT,LYTES,CA Speci men Type: PLASMA 12:00 PM [facility] Comment: Testin g Performed on [employer] Compliance Specialist ([id number]) SN:[id number] Ordering Provid er: JELANI SÁNCHEZ Report Released Date/Time: Dec 06, 2021 11:57 AM Reporting Lab: [facility] [address] [facility] [address] Performing Lab: [facility] [address] [facility] [address] UREA NITROGEN 13 7-25 SODIUM 138 135-145 POTASSIUM 3.8 3.5-5.0 CHLORIDE 103 100-110 CARBON DIOXIDE 23 20-30 ANION GAP 12 4-16 GLUCOSE 105 H 65-100 CREATININE 0.90 0.5-1.5 CALCIUM 8.7 8.5-10.5 eGFR(CKD-EPI 2020) >90.0 >60 Dec 06, 2021 12:00 PM [facility] Sp ecimen Type: PLASMA Comment: Tests performed on [employer] Compliance Specialist ([id number]) [id number] Ordering Provid er: JELANI SÁNCHEZ Report Released Date/Time: Dec 06, 2021 11:57 AM Reporting Lab: [facility] [address] [facility] [address] Performing Lab: [facility] [address] [facility] [address] BNP(P) 224.8 H 10-100 Dec 06, 2021 [place] [place] COVID-19+FLU/RSV DIAGNOSTIC Spe cimen Type: NASOPHARYNX 12:00 PM [facility] PANEL(405) Comment: Tests performed on Fixmoxpert (405) Critical results called to and read back by: ALESHIA WILKINSON RN 12/06/21 @ 1312 Ordering Provid er: JELANI SÁNCHEZ Report Released Date/Time: Dec 06, 2021 11:57 AM Reporting Lab: [facility] T [facility] [address] [facility] [address] Performing Lab: [place] [facility] [address] [facility] [address] FLU A(PCR) NEGATIVE NEGATIVE FLU B(PCR) NEGATIVE NEGATIVE RSV(PCR) NEGATIVE NEGATIVE COVID-19(DAH-lwe-PQHHUJKHL) DETECTED HH NO T DETECTED Dec 06, 2021 [facility] [facility] Sp ecimen Type: BLOOD No comment enter ed. Ordering Provid er: JELANI SÁNCHEZ Report Released Date/Time: Dec 06, 2021 11:57 AM Reporting Lab: [facility] [address] [facility] [address] Performing Lab: [facility] [address] [facility] [address] WBC 7.2 4.5-11.0 RBC 4.86 4.23-5.66 HGB [...] 94 122/75 18 /min 97 % 0 [place] 2021 09:00 /min mm[Hg] RIVER PM T [facility] Dec 10, 0 WHITE 2021 08:57 RIVER PM T [facility] Dec 10, 0 WHITE 2021 04:17 RIVER PM T [facility] Dec 10, 97.8 F 93 125/74 20 /min 95 % 0 [place] 2021 01:40 /min mm[Hg] RIVER PM T [facility] Dec 10, 231.9 32 [place] 2021 10:22 lb RIVER AM [facility] Social History: Smoking Status (Most [...] took place. Date/Time Smoking Status/Tobacco Use Comment [facility] Apr 01, 2020 01:16 PM [...] TOBACCO USE IN PAST YEAR [facility] DOYLE [facility] May 01, 2016 11:19 AM QUIT TOBACCO USE IN PAST YEAR [facility] DOYLE [facility] Mar 16, 2016 12:50 PM V1-PT DECLINES REF TO TOBACCO [facility]Y DOYLE [facility] CESS PRGM Mar 16, 2016 12:50 PM V1-PT THINKING ABOUT QUIT CAREY DOYLE [facility] TOBACCO USE Aug 12, 2015 08:48 AM CURRENT SMOKER CAREY Yates [facility] Radiology Reports: +/- 30 days [...] The data comes from all [place] treatment facilities. Date/Time Radiology Report Provider Source Dec 13, 2021 12:57 PM MRI ABDOMEN W/WO CONTRAST: MARYELLEN LONG LUCAS LARES N [id number] -1950 [facility] Exm Date: DEC 13, 2021@12:57 Req Phys: ISATU TODD Loc: OP Unknown/0 12-15-2021@13:20 Img Loc: MRI IMAGING (OOS) Service: [facility] MEDICINE (Case [id number] COMPLETE) MRI ABDOMEN W/WO CONTRAST (M RI Detailed) CPT:35667 Reason for Study: further characterization of a [...] new lyphadenopathy REQUESTING MD: Isatu Todd PAGER: [phone] PHONE: [phone] Weight: 232.2 lb [105.32 kg] (12/12/2021 05:00) [...] patient will need to arrange for a courier driver to take him/her home after the [...] 15, 2021 Date Verified: DEC 15, 2021 [employer] E-Sig:/ES/MARYELLEN LONG Report: MRI ABDOMEN W/WO CONTRAST [...] MALIGNANCY Primary Interpreting Staff: Staff AMELIA THOMAS ([employer]) / Dec 10, 2021 09:[address] ABDOMEN & PELVIS: RADIOLOGY,OUTSIDE [facility] [place] LUCAS MEEK N [id number] -1950 M SERVICE [facility] Exm Date: DEC 10, 2021@09:30 Req Phys: ISATU TODD Loc: MED/12-10@10:57 Img Loc: CT SCAN (OOS) Service: [facility] MEDICINE (Case [id number] COMPLETE) CT ABD & PELVIS WITHOUT CONT RAST (CT Detailed) CPT:25985 Reason for Study: 71 yo male with [...] RADIOLOGY [phone] to speak to the appropriate telemetry technician. Report Status: Verified Date Reported: DEC 10, 2021 Date Verified: DEC 10, 2021 [employer] E-Sig: Report: EXAM: CT abdomen and pelvis [...] ph nodes. READING PHYSICIAN: Ramone Munoz D.O. -[phone] 12/10/2021 10:55 EDT [facility] National Teleradiology Program [phone] (For Medical Practitioner Use Only ) [address] [facility] [facility] [address] [place] [address] Attention Patients / Veterans: If you have ques tions or concerns about these test results, please contact [facility] or primary care team. Primary Diagnostic Code: SIGNIFICANT ABNORMALIT Y, ATTN NEEDED Primary Interpreting Staff: RADIOLOGY,OUTSIDE SERVICE, Staff Physician / Dec 09, 2021 07:34 AM BASW (MODIFIED): JESSIE CHENEY [facility] LUCAS MEEK N [id number] -1950 M [facility] Exm Date: DEC 09, 2021@07:34 Req Phys: ISATU TODD Loc: 1S MED/12-09@11:26 Img Loc: XRAY (OOS) Service: [facility] MEDICINE (Case [id number] COMPLETE) BASW (MODIFIED) (RAD Detaile d) CPT:36627 Contrast Media : Barium Reason for Study: dysphagia ?esophageal spasm Clinical History: Report Status: Verified Date Reported: DEC 09, 2021 Date Verified: DEC 09, 2021 [employer] E-Sig:/ES/JESSIE CHENEY Report: BASW (MODIFIED) , 12/09/2021 [...] REQUIRED Primary Interpreting Staff: JESSIE CHENEY, RADIOLOGIST ([employer]) /TLC Dec 06, 2021 12:[address] CHEST (INCLUDES ADRENALS): JESSIE CHENEY [facility] LUCAS MEEK N [id number] -1950 M [facility] Exm Date: DEC 06, 2021@12:59 Req Phys: GONZALOJELANI Loc: [facility] ED DAYS M 1RD (Req'g Loc) Img Loc: CT SCAN (OOS) Service: Unknown (Case [id number] COMPLETE) CT THORAX W/O CONT (CT Detai led) CPT:40345 Reason for Study: Opacification right chest Clinical History: No contrast allergy BUN: 13 (12/06/21 12:00) CREATI: 0.90 (12/06/21 12:00) eGFR 05/16/21 09:43 52 L Weight: 232.6 lb [105.51 kg] (12/06/2021 11:40) BODY MASS INDEX - NO HEIGHTS FOUND Pager number: [phone] STAT orders MUST be called t o RADIOLOGY [phone] to speak to the appropriate telemetry technician. Indications - Other: Opacification right chest, covid positive, lung cancer histo Report Status: Verified Date Reported: DEC 06, 2021 Date Verified: DEC 06, 2021 [employer] E-Sig:/ES/JESSIE CHENEY Report: CT THORAX W/O CONT [...] REQUIRED Primary Interpreting Staff: JESSIE CHENEY, RADIOLOGIST ([employer]) Primary Interpreting Resident: PRINCE CHAMPION, Resident /BR Dec 06, 2021 11:58 AM CHEST SINGLE VIEW: JESSIE HCENEY DOUGLAS N [id number] -1950 M [facility] Exm Date: DEC 06, 2021@11:58 Req Phys: JELANI SÁNCHEZ Pat Loc: [facility] ED DAYS M 1RD (Req'g Loc) Img Loc: XRAY (OOS) Service: Unknown (Case [id number] COMPLETE) CHEST SINGLE VIEW (RAD Detai led) CPT:50198 Proc Modifiers : PORTABLE EXAM Reason for Study: SOB, home covid test positive Clinical History: Report Status: Verified Date Reported: DEC 06, 2021 Date Verified: DEC 06, 2021 [employer] E-Sig:/ES/JESSIE CHENEY Report: Exam type: Chest x-ray [...] REQUIRED Primary Interpreting Staff: JESSIE CHENEY, RADIOLOGIST ([employer]) /TLC Pathology Reports: +/- 30 days of [...] The data comes from all [place] treatment facilities. Date/Time Pathology Report Provider Source Jan 03, 2022 10:28 AM LR SURGICAL PATHOLOGY REPORT: STEFANY MILLER LOCAL TITLE: LR SURGICAL PATHOLOGY REPORT [facility] STANDARD TITLE: PATHOLOGY REPORT DATE OF NOTE: JAN 03, 2022@10:28:01 ENTRY DATE: JAN 03, 2022@10:28:01 AUTHOR: NIURKA MILLER EXP COSIGNER: URGENCY: STATUS: COMPLETED $APHDR Reporting Lab: [facility] MONTO[facility] [CLIA# [id number]] [address] [place] [address] - - - - - - [...] automatically d ocumented from SURGERY package case #[id number] Field (#32) PRINCIPAL PRE-OP DIAGNOSIS, (#.72) OTHER [...] automatically d ocumented from SURGERY package case #[id number] Field (#34) PRINCIPAL POST-OP DIAG, (#.74) OTHER [...] Label: Lucas Meek Paperwork: Lucas Meek Cassette: [id number];..;KALYANI;.;405;[phone] Specimen is labeled: ES bx Received in formalin are several pieces of pale boyd and brown tissue, 1.2 x 0.7 cm in aggregate. Submitted entirely in 1 cassette [id number];..;KALYANI;.;405;[id number] SAW 12/15/2021 Microscopic exam: *+* MODIFIED REPORT *+* (Last modified: JAN 03, 2022@09:30:20 typed by INURKA WADDELL) DIAGNOSIS: A. 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 Kendell long. TIARA Coombs was notified on 12/21/21. Modified on 01/03/22 to include report from [facility] stating that tumor is NEGATIVE for her2/ matheus amplification. The attending pathologist who signature mansoor ears on this report has reviewed all diagnostic slides and has edited t he gross and/or microscopic portion of this report in rendering the final pathologic diagnosis. [address] [address] CPT: 21492 /emely/ NIURKA Yeung MD Signed Jan 03, 2022@10:28 Performing Laboratory: Surgical Pathology Report Performed By: [facility] MONTOYA [facility] [CLIA# [id number]] [address] [place] [address] $FTR - - - - - [...] - - LUCAS MEEK STANDARD FORM 515 ID:[id number] SEX:M :1950 AGE: 71 LOC: SDM END PCP: Isatu Todd /emely/ NIURKA MILLER Staff Signed: 01/03/2022 10:28 Dec 21, 2021 11:46 AM LR SURGICAL PATHOLOGY REPORT: STEFANY MILLER [facility] LOCAL TITLE: LR SURGICAL PATHOLOGY REPORT [facility] STANDARD TITLE: PATHOLOGY REPORT DATE OF NOTE: DEC 21, 2021@11:46:59 ENTRY DATE: DEC 21, 2021@11:46:59 AUTHOR: NIURKA MILLER EXP COSIGNER: URGENCY: STATUS: COMPLETED $APHDR Reporting Lab: [facility] [CLIA# [id number]] [address] [facility] [place] [address] - - - - - - [...] automatically d ocumented from SURGERY package case #[id number] Field (#32) PRINCIPAL PRE-OP DIAGNOSIS, (#.72) OTHER [...] automatically d ocumented from SURGERY package case #[id number] Field (#34) PRINCIPAL POST-OP DIAG, (#.74) OTHER [...] Label: Lucas Meek Paperwork: Lucas Meek Cassette: [id number];..;KALYANI;.;688;[phone] Specimen is labeled: ES bx Received in formalin are several pieces of pale boyd and brown tissue, 1.2 x 0.7 cm in aggregate. Submitted entirely in 1 cassette [id number];..;KALYANI;.;405;[id number] SAW 12/15/2021 Microscopic exam: DIAGNOSIS: A. 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 Kendell long. TIARA Coombs was notified on 12/21/21. The attending pathologist who signature mansoor ears on this report has reviewed all diagnostic slides and has edited t he gross and/or microscopic portion of this report in rendering the final pathologic diagnosis. [address] [address] CPT: 42051 /emely/ NIURKA Yeung MD Signed Dec 21, 2021@11:46 Performing Laboratory: Surgical Pathology Report Performed By: [facility] [CLIA# [id number]] [address] [place] [address] $FTR - - - - - [...] - - LUCAS MEEK STANDARD FORM 515 ID:[id number] SEX:M :1950 AGE: 71 LOC: [facility] END PCP: Isatu Todd /charmaine Yeung MD Signed: 12/21/2021 11:46 Dec 06, 2021 03:30 PM LR MICROBIOLOGY REPORT: [facility] Reporting Lab: [facility] [CLIA# [id number]] [address] [place] [address] Accession [UID]: [id number] [[id number]] Receiv ed: Dec 06, 2021@16:14 Collection sample: BLOOD CUL T BOTTLE(NIRMAL/AERO)Collection date: Dec 06, 2021 15:30 Site/Specimen: BLOOD Provider: JELANI SÁNCHEZ Comment on specimen: LAC Test(s) ordered: BLOOD CULTURE ANAEROBI C....... completed: Dec 12, 2021 06:18 * BACTERIOLOGY FINAL REPORT => Dec 12, 2021 06:1 8 TECH CODE: [id number] Bacteriology Remark(s): NO GROWTH IN 5 DAYS =--=--=--=--=--=--=--=--=--=--=--=--=--= --=--=--=--=--=--=--=--=--=--=--=--=-- Performing Laboratory: Bacteriology Report Performed By: [facility] [CLIA# [id number]] [address] [place] [address] Dec 06, 2021 03:30 PM LR MICROBIOLOGY REPORT: [facility] Reporting Lab: [facility] [CLIA# [id number]] [address] [place] [address] Accession [UID]: [id number] [[id number]] Receiv ed: Dec 06, 2021@16:14 Collection sample: BLOOD CUL T BOTTLE(NIRMAL/AERO)Collection date: Dec 06, 2021 15:30 Site/Specimen: BLOOD Provider: JELANI SÁNCHEZ Comment on specimen: LAC Test(s) ordered: BLOOD CULTURE AEROBIC. ........ completed: Dec 12, 2021 06:17 * BACTERIOLOGY FINAL REPORT => Dec 12, 2021 06:1 7 TECH CODE: [id number] Bacteriology Remark(s): NO GROWTH IN 5 DAYS =--=--=--=--=--=--=--=--=--=--=--=--=--= --=--=--=--=--=--=--=--=--=--=--=--=-- Performing Laboratory: Bacteriology Report Performed By: [facility] [CLIA# [id number]] [address] [place] [address]
--- OUTSIDE RECORDS SUMMARY | 2022-01-19 08:36 | XMS_ITS ---
DAILY HOSPITALIZATION DATA [facility] Encounter Summary Created on:December 12, 2021 Patient:LUCAS MEEK Sex:Male :1950 Author Organization [facility] Address [address] [place] [id number] Support Name Relationship Address Phone YUSRA MEEK Unavailable [address] [place] [address] YUSRA MEEK Unavailable [address] [place] [facility] [place] [address] CLAY MOSLEY Unavailable Unavailable SJ SANTACRUZ Unavailable [...] MEDICARE MEDICARE PART Jun 18, PART A [id number] DO KALYANI PATIENT (WNR) (M) A 2016 13A 1 U[place]AS MEDICARE MEDICARE PART Jun 18, PART B [id number] DO KALYANI PATIENT (WNR) (M) B 2016 13A 1 [place] MEDICARE MEDICARE PART Jun 18, PART A [id number] KALYANIDO PATIENT (WNR) (M) A 2017 VH81 2 [place]AS MEDICARE MEDICARE PART Jun 18, PART B [id number] DO KALYANI PATIENT (WNR) (M) B 2017 VH81 2 U[place]AS UNITED MEDICARE MCR(Jun 18 [id number] Luz MEEK PATIENT HEALTHCARE ADVANTAGE NR) 2021 37 0 [facility] (WNR) Selected Encounter This section includes the information on record at [place] for the Encounter. Date/Time Encounter Type Encounter Description Reason Provider Source Dec 12, 2021 12:26 Inpatient Visit DAILY HOSPITALIZATION DATA PM IHE Encounter Template Text not used by [place] [...] AMBULATORY - NONE [place] [facility] Jan 06, 2022 02:00 PM AMBULATORY - [...] 2022 10:00 AM AMBUL[place]ORY - [place] [facility] Mar 21, 2022 10:30 AM AMBULATORY - [...] data comes from all [place] treatment [facility]. Test Date/Time Test Type Test Details Facility Name October 31, 2021 07:37 AM Consult Order [facility] Cons [employer] Worker[employer] November 15, 2021 10:37 AM Consult Order [facility] CARE-PODIATRY Cons [employer]er[employer] Dec 06, 2021 12:52 PM Pharmacy [...] [facility] [employer] Jan 15, 2022 10:08 PM Consult Order [facility] CARE-PALLIATIVE CARE Cons [employer] Worker[employer] Choice Lab Results: +/- 30 days of [...] Reference Range Comment Dec 15, 2021 [place] P4 GLU,BUN,CREAT,LYTES,CA Speci men Type: PLASMA 06:43 AM [facility] Comment: Tests performed on [employer] (405) SN:[id number] Ordering Provid er: ISATU TODD Report Released Date/Time: Dec 11, 2021 07:42 AM Reporting Lab: [facility] T [facility] [address] [facility] [address] Performing Lab: [facility] [address] [facility] [address] UREA NITROGEN 9 7-25 SODIUM 137 135-145 [...] T [facility] [address] [facility] [address] Performing Lab: [facility] [address] [facility] [address] WBC 5.7 4.5-11.0 RBC 4.22 L 4.23-5.66 [...] NRBC 0.00 0-0 Dec 14, 2021 [facility] CYTOGENETIC Specimen Type: ESOPHAGUS 02:59 PM VAOC FISH([facility]) Comment: ~For T est: CYTOGENETIC FISH([facility]) ~FISH HER 2 NUE, FFPE See full report in Incentient Image display viewer/tab#LAB-Reference Ordering Provid er: NIURKA MILLER Report Released Date/Time: Dec 21, 2021 12:11 PM Reporting Lab: [facility] [address] [facility] [address] Performing Lab: [facility] CYTOGENETIC FISH([facility]) comment Dec 14, 2021 [facility] P4 GLU,BUN,CREAT,LYTES,[place] Speci men Type: PLASMA 06:27 AM [facility]] Comment: Tests performed on [employer] (405) SN:[id number] Ordering Provid er: ISATU TODD Report Released Date/Time: Dec 11, 2021 07:42 AM Reporting Lab: [facility] [address] [facility] [address] Performing Lab: [facility] [address] [facility] [address] UREA NITROGEN 10 7-25 SODIUM 137 135-145 POTASSIUM 4.0 3.5-5.0 CHLORIDE 104 100-110 CARBON DIOXIDE 25 20-30 ANION GAP 8 4-16 GLUCOSE 99 65-100 CREATININE 0.67 0.5-1.5 CALCIUM 8.2 L 8.5-10.5 eGFR(CKD-EPI 2020) >90.0 >60 Dec 14, 2021 06:27 AM [facility] Sp ecimen Type: BLOOD No comment enter ed. Ordering Provid er: ISATU TODD Report Released Date/Time: Dec 10, 2021 07:22 AM Reporting Lab: [facility] [address] [facility] [address] Performing Lab: [facility] [address] [facility] [address] WBC 6.0 4.5-11.0 RBC 4.29 4.23-5.66 HGB [...] 0.00 0-0 Dec 13, 2021 06:34 AM [facility] CBC PROFILE Sp ecimen Type: BLOOD No comment enter ed. Ordering Provid er: ISATU TODD Report Released Date/Time: Dec 10, 2021 07:22 AM Reporting Lab: [facility] [address] [facility] [address] Performing Lab: [facility] [address] [facility] [address] WBC 5.6 4.5-11.0 RBC 4.28 4.23-5.66 HGB [...] NRBC 0.00 0-0 Dec 13, 2021 [facility] P4 GLU,BUN,CREAT,LYTES,CA Speci men Type: PLASMA 06:34 AM [facility]3] Comment: Tests performed on [employer] (405) SN:[id number] Ordering Provid er: ISATU TODD Report Released Date/Time: Dec 11, 2021 07:42 AM Reporting Lab: [facility] [address] [facility] [address] Performing Lab: [facility] [address] [facility] [address] UREA NITROGEN 12 7-25 SODIUM 136 135-145 [...] [facility]3] Comment: Tests performed on [employer] (405) SN:[id number] Ordering Provid er: ISATU TODD Report Released Date/Time: Dec 11, 2021 07:42 AM Reporting Lab: [facility] [address] [facility] [address] Performing Lab: [facility] [address] [facility] [address] UREA NITROGEN 11 7-25 SODIUM 139 135-145 POTASSIUM 4.1 3.5-5.0 CHLORIDE 107 100-110 CARBON DIOXIDE 24 20-30 ANION GAP 8 4-16 GLUCOSE 110 H 65-100 CREATININE 0.70 0.5-1.5 CALCIUM 8.3 L 8.5-10.5 eGFR(CKD-EPI 2020) >90.0 >60 Dec 12, 2021 06:21 AM [facility]] CBC PROFILE Sp ecimen Type: BLOOD No comment enter ed. Ordering Provid er: ISATU TODD Report Released Date/Time: Dec 10, 2021 07:22 AM Reporting Lab: [facility] [address] [facility] [address] Performing Lab: [facility] [address] [facility] [address] WBC 5.5 4.5-11.0 RBC 4.37 4.23-5.66 HGB [...] 0.00 0-0 Dec 12, 2021 06:00 AM [facility] MAGNESIUM Sp ecimen Type: PLASMA Comment: Testin g Performed on [employer] (405) SN:[id number] Ordering Provid er: ISATU TODD Report Released Date/Time: Dec 12, 2021 08:24 AM Reporting Lab: [place] [facility] [address] [facility] [address] Performing Lab: [employer] [place] [facility] [address] [facility] [address] MAGNESIUM 1.8 1.6-2.6 Dec 12, 2021 06:00 AM [facility] PHOSPHORUS Sp ecimen Type: PLASMA Comment: Testin g Performed on [employer] (405) SN:[id number] Ordering Provid er: ISATU TODD Report Released Date/Time: Dec 12, 2021 08:24 AM Reporting Lab: [place] [facility] [address] [facility] [address] Performing Lab: [place] [facility] [address] [facility] [address] PHOSPHORUS 3.1 2.5-5.0 Dec 11, 2021 06:15 AM [employer] [place] [facility] ELECTROLYTES Sp ecimen Type: PLASMA Comment: Tests performed on [employer] (405) SN:[id number] Ordering Provid er: ISATU TODD Report Released Date/Time: Dec 10, 2021 07:22 AM Reporting Lab: [place] [facility] [address] [facility] [address] Performing Lab: [place] [facility] [address] [facility] [address] SODIUM 137 135-145 POTASSIUM 4.3 3.5-5.0 CHLORIDE 108 100-110 CARBON DIOXIDE 20 20-30 ANION GAP 9 4-16 Dec 11, 2021 06:15 AM [place] [facility] [place] [facility] CBC PROFILE Sp ecimen Type: BLOOD Comment: Result s checked Ordering Provid er: ISATU TODD Report Released Date/Time: Dec 10, 2021 07:22 AM Reporting Lab: [place] [facility] [address] [facility] [address] Performing Lab: [place] [facility] [address] [facility] [address] WBC 5.8 4.5-11.0 RBC 4.37 4.23-5.66 HGB [...] ecimen Type: PLASMA Comment: Tests performed on [employer] (688) SN:[id number] Results checked Ordering Provid er: ISATU TODD Report Released Date/Time: Dec 11, 2021 07:44 AM Reporting Lab: [place] [facility] [address] [facility] [address] Performing Lab: [place] [facility] [address] [facility] [address] PHOSPHORUS 3.0 2.5-5.0 Dec 10, 2021 08:05 AM [place] [facility] MAGNESIUM Sp ecimen Type: PLASMA Comment: [place] [id number] on Dec 10, 2021@08:31 Tests performed on [employer] (405) SN:[id number] Ordering Provid er: ISATU TODD Report Released Date/Time: Dec 10, 2021 07:22 AM Reporting Lab: [place] [facility] [address] [place] [facility] [place] [address] Performing Lab: [place] [facility] [address] [place] [facility] [place] [address] MAGNESIUM 1.7 1.6-2.6 Dec 10, 2021 08:05 AM [place] [facility] PHOSPHORUS Sp ecimen Type: PLASMA Comment: [place] [id number] on Dec 10, 2021@08:31 Tests performed on [employer] (405) SN:[id number] Ordering Provid er: ISATU TODD Report Released Date/Time: Dec 10, 2021 07:22 AM Reporting Lab: [place] [facility] [address] [place] [facility] [place] [address] Performing Lab: [place] [facility] [address] [place] [facility] [place] [address] PHOSPHORUS 1.8 L 2.5-5.0 Dec 10, 2021 08:05 AM [place] UREA NITROGEN Specimen Type: PLASMA [facility] Comment: [place] [id number] on Dec 10, 2021@08:31 Tests performed on [employer] (405) SN:[id number] Ordering Provid er: ISATU TODD Report Released Date/Time: Dec 10, 2021 07:22 AM Reporting Lab: [place] [facility] [address] [place] [facility] [place] [address] Performing Lab: [place] [facility] [address] [place] [facility] [place] [address] UREA NITROGEN 8 7-25 Dec 10, 2021 08:05 AM [place] [facility] GLUCOSE Sp ecimen Type: PLASMA Comment: [place] [id number] on Dec 10, 2021@08:31 Tests performed on [employer] (405) SN:[id number] Ordering Provid er: ISATU TODD Report Released Date/Time: Dec 10, 2021 07:22 AM Reporting Lab: [place] [facility] [address] [facility] [address] Performing Lab: [place] [facility] [address] [facility] [address] GLUCOSE 144 H 65-100 Dec 10, 2021 08:05 AM [place] [facility] CALCIUM Sp ecimen Type: PLASMA Comment: [place] [id number] on Dec 10, 2021@08:31 Tests performed on [employer] (405) SN:[id number] Ordering Provid er: ISATU TODD Report Released Date/Time: Dec 10, 2021 07:22 AM Reporting Lab: [place] [facility] [address] [facility] [address] Performing Lab: [place] [facility] [address] [facility] [address] CALCIUM 8.3 L 8.5-10.5 Dec 10, 2021 08:05 AM [place] [facility] ELECTROLYTES Sp ecimen Type: PLASMA Comment: [place] [id number] on Dec 10, 2021@08:31 Tests performed on [employer] (405) SN:[id number] Ordering Provid er: ISATU TODD Report Released Date/Time: Dec 10, 2021 07:22 AM Reporting Lab: [place] [facility] [address] [facility] [address] Performing Lab: [place] [facility] [address] [facility] [address] SODIUM 139 135-145 POTASSIUM 3.7 3.5-5.0 CHLORIDE 107 100-110 CARBON DIOXIDE 24 20-30 ANION GAP 8 4-16 Dec 10, 2021 08:05 AM [place] [facility] CBC PROFILE Sp ecimen Type: BLOOD No comment enter ed. Ordering Provid er: ISATU TODD Report Released Date/Time: Dec 10, 2021 07:22 AM Reporting Lab: [place] [facility] [address] [facility] [address] Performing Lab: [place] [facility] [address] [facility] [address] WBC 7.0 4.5-11.0 RBC 4.54 4.23-5.66 HGB [...] PLASMA AM [facility] PANEL Comment: [place] [id number] on Dec 10, 2021@08:31 Tests performed on [employer] (405) SN:[id number] Ordering Provid er: ISATU TODD Report Released Date/Time: Dec 10, 2021 07:22 AM Reporting Lab: [facility] [address] [facility] [address] Performing Lab: [facility] [address] [facility] [address] CREATININE 0.78 0.5-1.5 eGFR(CKD-EPI 2020) >90.0 >60 Dec 09, 2021 06:46 AM [place] [facility] MAGNESIUM Sp ecimen Type: PLASMA Comment: Tests performed on [employer] (405) SN:[id number] Ordering Provid er: ISATU TODD Report Released Date/Time: Dec 08, 2021 10:23 AM Reporting Lab: [place] [facility] [address] [facility] [address] Performing Lab: [place] [facility] [address] [facility] [address] MAGNESIUM 1.6 1.6-2.6 Dec 09, 2021 [facility] P4 GLU,BUN,CREAT,LYTES,CA Speci men Type: PLASMA 06:46 AM [facility]3] Comment: Tests performed on [employer] (405) SN:[id number] Ordering Provid er: ISATU TODD Report Released Date/Time: Dec 08, 2021 05:00 PM Reporting Lab: [facility] [address] [facility] [address] Performing Lab: [facility] [address] [facility] [address] UREA NITROGEN 6 L 7-25 SODIUM 134 [...] Reporting Lab: [facility] [address] [facility] [address] Performing Lab: [facility] [address] [facility] [address] WBC 7.1 4.5-11.0 RBC 4.40 4.23-5.66 HGB [...] 0-0 Dec 08, 2021 06:39 AM [facility] MAGNESIUM Sp ecimen Type: PLASMA Comment: Testin g Performed on [employer] (405) SN:[id number] Ordering Provid er: ISATU TODD Report Released Date/Time: Dec 07, 2021 10:32 AM Reporting Lab: [facility] [address] [facility] [address] Performing Lab: [facility] [address] [facility] [address] MAGNESIUM 1.5 L 1.6-2.6 Dec 08, 2021 06:39 AM [facility] [facility] CBC PROFILE Sp ecimen Type: BLOOD No comment enter ed. Ordering Provid er: ISATU TODD Report Released Date/Time: Dec 07, 2021 10:32 AM Reporting Lab: [facility] [address] [facility] [address] Performing Lab: [facility] [address] [facility] [address] WBC 8.4 4.5-11.0 RBC 4.75 4.23-5.66 HGB [...] ABSOLUTE NRBC 0.00 0-0 Dec 08, 2021 [facility] P4 GLU,BUN,CREAT,LYTES,CA Speci men Type: PLASMA 06:39 AM [facility] Comment: Testin g Performed on [employer] (405) SN:[id number] Ordering Provid er: ISATU TODD Report Released Date/Time: Dec 07, 2021 10:32 AM Reporting Lab: [facility] [address] [facility] [address] Performing Lab: [facility] [address] [facility] [address] UREA NITROGEN 6 L 7-25 SODIUM 136 135-145 POTASSIUM 3.3 L 3.5-5.0 CHLORIDE 104 100-110 CARBON DIOXIDE 22 20-30 ANION GAP 10 4-16 GLUCOSE 133 H 65-100 CREATININE 0.76 0.5-1.5 CALCIUM 8.4 L 8.5-10.5 eGFR(CKD-EPI 2020) >90.0 >60 Dec 07, 2021 [facility] P4 GLU,BUN,CREAT,LYTES,CA Speci men Type: PLASMA 06:42 AM [facility] Comment: Tests performed on [employer] (405) SN:[id number] Ordering Provid er: PORFIRIO WALTERS Report Released Date/Time: Dec 06, 2021 06:57 PM Reporting Lab: [place] [facility] [address] [facility] [address] Performing Lab: [facility] [address] [facility] [address] UREA NITROGEN 9 7-25 SODIUM 135 135-145 POTASSIUM 3.5 3.5-5.0 CHLORIDE 103 100-110 CARBON DIOXIDE 22 20-30 ANION GAP 10 4-16 GLUCOSE 92 65-100 CREATININE 0.73 0.5-1.5 CALCIUM 8.0 L 8.5-10.5 eGFR(CKD-EPI 2020) >90.0 >60 Dec 07, 2021 06:42 [place] LIVER PROFILE Specimen Typ e: PLASMA AM [facility] Comment: Tests performed on [employer] Strategic Planning Director (405) SN:[id number] Ordering Provid er: PORFIRIO WALTERS Report Released Date/Time: Dec 06, 2021 06:57 PM Reporting Lab: [facility] [address] [facility] [address] Performing Lab: [facility] [address] [facility] [address] PROTEIN, TOTAL 5.7 L 6.0-8.5 ALBUMIN 2.4 L 3.2-5.0 BILIRUBIN, TOTAL 0.4 0.2-1.2 ALKALINE PHOSPHATASE 109 40-150 ALT(SGPT) 10 7-52 AST(SGOT) 15 5-34 FIB-4 SCORE 1.92 <2.67 Dec 07, 2021 06:42 AM [facility] [facility] CBC PROFILE Specimen Type: BLOOD [facility]] No comment enter ed. Ordering Provid er: PORFIRIO WALTERS Report Released Date/Time: Dec 06, 2021 06:57 PM Reporting Lab: [facility] [address] [facility] [address] Performing Lab: [facility] [address] [facility] [address] WBC 5.7 4.5-11.0 RBC 4.15 L 4.23-5.66 [...] [facility] %) AUTOMATED Comment: Tests performed on [employer] (405) SN:[id number] Ordering Provid er: ISATU TODD Report Released Date/Time: Dec 07, 2021 10:28 AM Reporting Lab: [place] [facility] [address] [facility] [address] Performing Lab: [place] [facility] [address] [facility] [address] RETICULOCYTES (%) AUTOMATED 1.23 0. 6-2.0 RETICULOCYTES (ABS) AUTOMATED 0.052 0.030-0.090 Dec 06, 2021 09:45 [place] MRSA SURVL NARES Specimen Ty pe: NARES PM [facility] DNA No comment enter ed. Ordering Provid er: ALVARO VARGHESE Report Released Date/Time: Dec 07, 2021 02:20 AM Reporting Lab: [place] [facility] [address] [facility] [address] Performing Lab: [place] [facility] [address] [facility] [address] MRSA SURVL NARES DNA NEGATIVE NEGATIVE Dec 06, 2021 06:00 [place] URINALYSIS W/REFLEX TO Speci men Type: URINE PM [facility] CULTURE No comment enter ed. Ordering Provid er: JELANI SÁNCHEZ Report Released Date/Time: Dec 06, 2021 11:57 AM Reporting Lab: [place] [facility] [address] [facility] [address] Performing Lab: [place] [facility] [address] [facility] [address] URINE COLOR Arlin YELLOW SPECIFIC GRAVITY 1.029 [...] 21, RIVER VARIANT Comment: https://www.cdc.gov/coronavirus/2019-ncov/cases-updates/variant- surveillance/variant-info.html The [employer] SARS CoV 2 [employer] Assay-GX is a next-generation sequencing (NGS) assa 2021 [facility] SEQUENCING y that determine s the complete genome sequence of the SARS-CoV-2 virus. The assay contains variant-tolerant primers to broaden and improve the coverage for variant detection and increase the sensitivity 12:00 [facility] PNL(WH) of the panel to enable detection from lower viral titer samples. The assay is run on the [employer] Sequencer, which performs automated library preparation, sequencing, analysis, and reporting. PM The sequence an alysis includes determination of viral phylogenetic lineage by comparison to the reference strain Wuhan-Hu-1, GenBank: [id number]. Sequence determination may not be possible owing [...] and its performance characteristics determined by the [facility] Molecular Diagnostics Laboratory, which is certified under the Clinical Laboratory Improveme nt Amendments (C MARCO) as qualified to perform high complexity clinical laboratory testing. This test is validated for clinical use at [facility] and should not be regarded [...] [facility] [address] [facility] [address] Performing Lab: [facility] [address] [facility] [address] SARS-CoV-2 CLADE() 22C (OMICRON) SARS-CoV-2 LINEAGE() BA.2.12.1 Dec 06, 2021 12:00 [facility] COVID-19 AG SCREEN Specimen Type: NASAL CAVITY PM [facility] PANEL [employer]INAX(405) Comment: Testi ng Performed By: Mike Briscoe Ordering Provid er: JELANI SÁNCHEZ Report Released Date/Time: Dec 08, 2021 08:23 AM Reporting Lab: [facility] [address] [facility] [address] Performing Lab: [facility] [address] [facility] [address] COVID-19 AG SCRN(wrj BINAX) POSITIVE HH NE G Dec 06, 2021 12:00 PM [facility] TROPONIN II Sp ecimen Type: PLASMA Comment: Tests performed on [employer] Planning Director (405) SN:[id number] Ordering Provid er: JELANI SÁNCHEZ Report Released Date/Time: Dec 06, 2021 11:57 AM Reporting Lab: [facility] [address] [facility] [address] Performing Lab: [facility] [address] [facility] [address] TROPONIN II 0.03 0.00-0.29 Dec 06, 2021 [place] P4 GLU,BUN,CREAT,LYTES,CA Speci men Type: PLASMA 12:00 PM [facility] Comment: Testin g Performed on [employer] Planning Director (405) SN:[id number] Ordering Provid er: JELANI SÁNCHEZ Report Released Date/Time: Dec 06, 2021 11:57 AM Reporting Lab: [place] [facility] [address] [facility] [address] Performing Lab: [place] [facility] [address] [facility] [address] UREA NITROGEN 13 7-25 SODIUM 138 135-145 POTASSIUM 3.8 3.5-5.0 CHLORIDE 103 100-110 CARBON DIOXIDE 23 20-30 ANION GAP 12 4-16 GLUCOSE 105 H 65-100 CREATININE 0.90 0.5-1.5 CALCIUM 8.7 8.5-10.5 eGFR(CKD-EPI 2020) >90.0 >60 Dec 06, 2021 12:00 PM [facility] LIVER PROFILE Sp ecimen Type: PLASMA Comment: Testin g Performed on [employer] Strategic Planning Director (405) SN:[id number] Ordering Provid er: JELANI SÁNCHEZ Report Released Date/Time: Dec 06, 2021 11:57 AM Reporting Lab: [facility] [address] [facility] [address] Performing Lab: [facility] [address] [facility] [address] PROTEIN, TOTAL 6.6 6.0-8.5 ALBUMIN 2.8 L 3.2-5.0 BILIRUBIN, TOTAL 0.6 0.2-1.2 ALKALINE PHOSPHATASE 134 40-150 ALT(SGPT) 13 7-52 AST(SGOT) 18 5-34 FIB-4 SCORE 1.94 <2.67 Dec 06, 2021 [facility] COVID-19+FLU/RSV DIAGNOSTIC Spe cimen Type: NASOPHARYNX 12:00 PM [facility] PANEL(405) Comment: Tests performed on [employer] Genexpert (405) Critical results called to and read back by: ALESHIA WILKINSON RN 12/06/21 @ 1312 Ordering Provid er: JELANI SÁNCHEZ Report Released Date/Time: Dec 06, 2021 11:57 AM Reporting Lab: [facility] [address] [facility] [address] Performing Lab: [facility] [address] [facility] [address] FLU A(PCR) NEGATIVE NEGATIVE FLU B(PCR) NEGATIVE NEGATIVE RSV(PCR) NEGATIVE NEGATIVE COVID-19(TMA-lhn-GDISZOEYH) DETECTED HH NO T DETECTED Dec 06, 2021 12:00 PM [facility] BNP(P) Sp ecimen Type: PLASMA Comment: Tests performed on Pham Strategic Planning Director (405) SN:[id number] Ordering Provid er: JELANI SÁNCHEZ Report Released Date/Time: Dec 06, 2021 11:57 AM Reporting Lab: [facility] [address] [facility] [address] Performing Lab: [facility] [address] [facility] [address] BNP(P) 224.8 H 10-100 Dec 06, 2021 12:00 PM [facility] CBC PROFILE Sp ecimen Type: BLOOD No comment enter ed. Ordering Provid er: JELANI SÁNCHEZ Report Released Date/Time: Dec 06, 2021 11:57 AM Reporting Lab: [facility] [address] [facility] [address] [facility] [address] [facility] [address] WBC 7.2 4.5-11.0 RBC 4.86 4.23-5.66 HGB [...] dy Source Pressure Rate Mass Index Dec 12, 98.3 F 95 121/74 18 /min 96 % 0 WHITE 2021 07:43 /min mm[Hg] RIVER PM T [facility]3] Dec 12, 0 WHITE 2021 07:37 RIVER PM JCT [facility]3] Dec 12, 0 WHITE 2021 02:17 RIVER PM T [facility]3] Dec 12, 98 F 82 127/76 18 /min 97 % WHITE 2021 02:01 /min mm[Hg] RIVER PM T [facility]3] Dec 12, 0 2021 10:59 RIVER AM [facility] Social History: Smoking Status (Most current) [...] took place. Date/Time Smoking Status/Tobacco Use Comment [facility] Apr 01, 2020 01:16 PM QUIT TOBACCO USE 1-[address] [facility] Mar 24, 2020 03:00 PM QUIT TOBACCO USE [facility]] Feb 21, 2019 04:11 PM QUIT TOBACCO USE 1-[address] [facility] Feb 20, 2019 03:38 PM QUIT TOBACCO USE 1-[address] [facility] Feb 03, 2019 09:50 AM QUIT TOBACCO USE 1-7 YEARS AGO [facility]] May 25, 2016 11:53 PM [facility]IT [facility] May 23, 2016 06:57 PM QUIT TOBACCO [...] IN PAST YEAR CAREY DOYLE [facility] May 01, 2016 11:19 AM QUIT TOBACCO USE IN PAST YEAR [facility]Y DOYLE [facility] Mar 16, 2016 12:50 PM V1-PT DECLINES REF TO TOBACCO CAREY DOYLE [facility] CESS PR[facility] Mar 16, 2016 12:50 PM V1-PT THINKING ABOUT QUIT CAREY DOYLE [facility] TOBACCO USE Aug 12, 2015 08:48 AM CURRENT SMOKER CAREY Yates [facility] Radiology Reports: +/- 30 days of [...] W/WO CONTRAST: MARYELLEN LONG LUCAS LARES N [id number] -1950 [facility] Exm Date: DEC 13, 2021@12:57 Req Phys: ISATU TODD Loc: OP Unknown/0 12-15-2021@13:20 Img Loc: MRI IMAGING (OOS) Service: ZZGENERAL MEDICINE (Case [id number] COMPLETE) MRI ABDOMEN W/WO CONTRAST (M RI Detailed) CPT:19747 Reason for Study: further characterization of a [...] new lyphadenopathy REQUESTING MD: Isatu Todd PAGER: [phone] PHONE: [phone] Weight: 232.2 lb [105.32 kg] (12/12/2021 05:00) [...] patient will need to arrange for a compactor driver to take him/her home after the [...] 15, 2021 Date Verified: DEC 15, 2021 Cloud Administrator E-Sig:/ES/MARYELLEN LONG Report: MRI ABDOMEN W/WO CONTRAST [...] MALIGNANCY Primary Interpreting Staff: MARYELLEN LONG Staff (Cloud Administrator) / Dec 10, 2021 09:[address] ABDOMEN & PELVIS: [facility] BENITA MEEKLAS N [id number] -1950 SERVICE [facility]3] Ex Date: DEC 10, 2021@09:30 Req Phys: ISATU TODD Loc: 1S MED/12-10@10:57 Img Loc: CT SCAN (OOS) Service: [facility] MEDICINE (Case [id number] COMPLETE) CT ABD & PELVIS WITHOUT CONT RAST (CT Detailed) CPT:41281 Reason for Study: 71 yo male with dysphagia ?es ophageal anatomy Clinical History: No contrast allergy BUN: 8 (12/10/21 08:05) CREATI: 0.78 (06/25/22 08:05) eGFR Last 3 Results Collection DT Spec CREATI e GFR(CK 12/10/2021 08:05 PLASM 0.78 >90.0 12/09/2021 06 :00 PLASM 0.70 >90.0 12/08/2021 06:00 PLASM 0.76 >90.0 Weight: 233.7 lb [106.00 kg] (12/06/2021 21:43) BODY MASS INDEX - NO HEIGHTS FOUND Pager number: [phone] STAT orders MUST be call ed to RADIOLOGY [phone] to speak to the appropriate pool technician. Report Status: Verified Date Reported: DEC 10, 2021 Date Verified: DEC 10, 2021 Cloud Administrator E-Sig: Report: EXAM: CT abdomen and pelvis [...] ph nodes. READING PHYSICIAN: Ramone Munoz D.O. [phone] 12/10/2021 10:55 EDT [facility] National Teleradiology Program [phone] (For Medical Practitioner Use Only ) [address], [facility] [address], [address] [place] [address] Attention Patients / Veterans: If you have ques tions or concerns about these test results, please contact your o rdering provider or primary care team. Primary Diagnostic Code: SIGNIFICANT ABNORMALIT Y, ATTN NEEDED Primary Interpreting Staff: RADIOLOGY,OUTSIDE SERVICE, Staff Physician / Dec 09, 2021 07:34 AM BASW (MODIFIED): JESSIE CHENEY TARA ER JCLUCAS LARES N [id number] -1950 [facility] Exm Date: DEC 09, 2021@07:34 Req Phys: PEYTONISATU Manjarrez Loc: 1S MED/12-09@11:26 Img Loc: XRAY (OOS) Service: [facility] MEDICINE (Case [id number] COMPLETE) BASW (MODIFIED) (RAD Detaile d) CPT:93842 Contrast Media : Barium Reason for Study: dysphagia ?esophageal spasm Clinical History: Report Status: Verified Date Reported: DEC 09, 2021 Date Verified: DEC 09, 2021 Cloud Administrator E-Sig:/ES/JESSIE CHENEY Report: BASW (MODIFIED) , 12/09/2021 [...] REQUIRED Primary Interpreting Staff: JESSIE CHENEY, RADIOLOGIST (Cloud Administrator) /TLC Dec 06, 2021 12:[address] CHEST (INCLUDES ADRENALS): JESSIE CHENEY LUCAS LARES N [id number] -1950 [facility] Exm Date: DEC 06, 2021@12:59 Req Phys: JELANI SÁNCHEZ Pat Loc: [facility] ED DAYS M 1RD (Req'g Loc) Img Loc: CT SCAN (OOS) Service: Unknown (Case [id number] COMPLETE) CT THORAX W/O CONT (CT Detai led) CPT:86838 Reason for Study: Opacification right chest Clinical History: No contrast allergy BUN: 13 (12/06/21 12:00) CREATI: 0.90 (12/06/21 12:00) eGFR 05/16/21 09:43 52 L Weight: 232.6 lb [105.51 kg] (12/06/2021 11:40) BODY MASS INDEX - NO HEIGHTS FOUND Pager number: [phone] STAT orders MUST be called t o RADIOLOGY [phone] to speak to the appropriate pool technician. Indications - Other: Opacification right chest, covid positive, lung cancer histo Report Status: Verified Date Reported: DEC 06, 2021 Date Verified: DEC 06, 2021 Cloud Administrator E-Sig:/ES/JESSIE CHENEY Report: CT THORAX W/O CONT [...] REQUIRED Primary Interpreting Staff: JESSIE CHENEY, RADIOLOGIST (Cloud Administrator) Primary Interpreting Resident: PRINCE CHAMPION, Resident /BR Dec 06, 2021 11:58 AM CHEST SINGLE VIEW: JESSIE CHENEY DOUGLAS N [id number] -1950 M [facility] Exm Date: DEC 06, 2021@11:58 Req Phys: GONZALO,JELANI Link Pat Loc: [facility] ED DAYS M 1RD (Req'g Loc) Img Loc: XRAY (OOS) Service: Unknown (Case [id number] COMPLETE) CHEST SINGLE VIEW (RAD Detai led) CPT:72517 Proc Modifiers : PORTABLE EXAM Reason for Study: SOB, home covid test positive Clinical History: Report Status: Verified Date Reported: DEC 06, 2021 Date Verified: DEC 06, 2021 Cloud Administrator E-Sig:/ES/JESSIE CHENEY Report: Exam type: Chest x-ray [...] REQUIRED Primary Interpreting Staff: JESSIE CHENEY, RADIOLOGIST (Cloud Administrator) /TLC Pathology Reports: +/- 30 days of [...] Reporting Lab: [facility]Y MONTO[facility]3] [CLIA# [id number]] [address] [place] [address] - - - - - - [...] automatically d ocumented from SURGERY package case #[id number] Field (#32) PRINCIPAL PRE-OP DIAGNOSIS, (#.72) OTHER [...] automatically d ocumented from SURGERY package case #[id number] Field (#34) PRINCIPAL POST-OP DIAG, (#.74) OTHER [...] Label: Lucas Meek Paperwork: Lucas Meek Cassette: [id number];..;KALYANI;.;405;[id number] Specimen is labeled: ES bx Received in formalin are several pieces of pale boyd and brown tissue, 1.2 x 0.7 cm in aggregate. Submitted entirely in 1 cassette [id number];..;KALYANI;.;405;[id number] SAW 12/15/2021 Microscopic exam: *+* MODIFIED REPORT *+* (Last modified: JAN 03, 2022@09:30:20 typed by NIURKA WADDELL) DIAGNOSIS: A. 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 Kendell long. TIARA Coombs was notified on 12/21/21. Modified on 01/03/22 to include report from [facility] stating that tumor is NEGATIVE for her2/ matheus amplification. The attending pathologist who signature mansoor ears on this report has reviewed all diagnostic slides and has edited t he gross and/or microscopic portion of this report in rendering the final pathologic diagnosis. [address] [address] CPT: 69430 /emely/ NIURKA Yeung MD Signed Jan 03, 2022@10:28 Performing Laboratory: Surgical Pathology Report Performed By: C[facility]Y DOYLE [place] [facility]3] [CLIA# [id number]] [address] [place] [address] $FTR - - - - - [...] - - LUCAS MEEK STANDARD FORM 515 ID:[id number] SEX:M :1950 AGE: 71 LOC: SDM END PCP: Isatu Todd /emely/ NIURKA MILLER Staff Signed: 01/03/2022 10:28 Dec 21, 2021 11:46 AM LR SURGICAL PATHOLOGY REPORT: STEFANY MILLER [facility] LOCAL TITLE: LR SURGICAL PATHOLOGY REPORT [facility]3] STANDARD TITLE: PATHOLOGY REPORT DATE OF NOTE: DEC 21, 2021@11:46:59 ENTRY DATE: DEC 21, 2021@11:46:59 AUTHOR: NIURKA MILLER EXP COSIGNER: URGENCY: STATUS: COMPLETED $APHDR Reporting Lab: [facility] [CLIA# [id number]] [address] [place] [address] - - - - - - [...] automatically d ocumented from SURGERY package case #[id number] Field (#32) PRINCIPAL PRE-OP DIAGNOSIS, (#.72) OTHER [...] automatically d ocumented from SURGERY package case #[id number] Field (#34) PRINCIPAL POST-OP DIAG, (#.74) OTHER [...] Label: Lucas Meek Paperwork: Lucas Meek Cassette: [id number];..;KALYANI;.;405;[id number] Specimen is labeled: ES bx Received in formalin are several pieces of pale boyd and brown tissue, 1.2 x 0.7 cm in aggregate. Submitted entirely in 1 cassette [id number];..;KALYANI;.;405;[id number] SAW 12/15/2021 Microscopic exam: DIAGNOSIS: A. 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 Kendell long. TIARA Coombs was notified on 12/21/21. The attending pathologist who signature mansoor ears on this report has reviewed all diagnostic slides and has edited t he gross and/or microscopic portion of this report in rendering the final pathologic diagnosis. [address] [address] CPT: 36000 /emely/ NIURKA Yeung MD Signed Dec 21, 2021@11:46 Performing Laboratory: Surgical Pathology Report Performed By: [facility] [CLIA# [id number]] [address] [place] [address] $FTR - - - - - [...] - - LUCAS MEEK STANDARD FORM 515 ID:[id number] SEX:M :1950 AGE: 71 LOC: SDM END PCP: Isatu Todd /charmaine Yeung MD Signed: 12/21/2021 11:46 Dec 06, 2021 03:30 PM LR MICROBIOLOGY REPORT: [facility] Reporting Lab: [facility] [CLIA# [id number]] [address] [place] [address] Accession [UID]: [id number] [[id number]] Receiv ed: Dec 06, 2021@16:14 Collection sample: BLOOD CUL T BOTTLE(NIRMAL/AERO)Collection date: Dec 06, 2021 15:30 Site/Specimen: BLOOD Provider: JELANI SÁNCHEZ Comment on specimen: LAC Test(s) ordered: BLOOD CULTURE ANAEROBI C....... completed: Dec 12, 2021 06:18 * BACTERIOLOGY FINAL REPORT => Dec 12, 2021 06:1 8 TECH CODE: [id number] Bacteriology Remark(s): NO GROWTH IN 5 DAYS =--=--=--=--=--=--=--=--=--=--=--=--=--= --=--=--=--=--=--=--=--=--=--=--=--=-- Performing Laboratory: Bacteriology Report Performed By: [facility] [CLIA# [id number]] [address] [place] [address] Dec 06, 2021 03:30 PM LR MICROBIOLOGY REPORT: [facility] Reporting Lab: [facility] [CLIA# [id number]] [address] [place] [address] Accession [UID]: [id number] [[id number]] Receiv ed: Dec 06, 2021@16:14 Collection sample: BLOOD CUL T BOTTLE(NIRMAL/AERO)Collection date: Dec 06, 2021 15:30 Site/Specimen: BLOOD Provider: JELANI SÁNCHEZ Comment on specimen: LAC Test(s) ordered: BLOOD CULTURE AEROBIC. ........ completed: Dec 12, 2021 06:17 * BACTERIOLOGY FINAL REPORT => Dec 12, 2021 06:1 7 TECH CODE: [id number] Bacteriology Remark(s): NO GROWTH IN 5 DAYS =--=--=--=--=--=--=--=--=--=--=--=--=--= --=--=--=--=--=--=--=--=--=--=--=--=-- Performing Laboratory: Bacteriology Report Performed By: [facility] [CLIA# [id number]] [address] [place] [address]
--- OUTSIDE RECORDS SUMMARY | 2022-01-19 08:37 | XMS_ITS ---
DAILY HOSPITALIZATION DATA [facility] Encounter Summary Created on:December 12, 2021 Patient:LUCAS MEEK Sex:Male :1950 Author Organization [facility] Address [address] [place] [id number] Support Name Relationship Address Phone YUSRA MEEK Unavailable [address] [place] [place] [address] YUSRA MEEK Unavailable [address] [place] [facility] [place] [address] CLAY MOSLEY Unavailable Unavailable SJ SANTACRUZ Unavailable [...] MEDICARE MEDICARE PART Jun 18, PART A [id number] DO KALYANI PATIENT (WNR) (M) A 2016 13A 1 U[place]AS MEDICARE MEDICARE PART Jun 18, PART B [id number] DO KALYANI PATIENT (WNR) (M) B 2016 13A 1 [place]AS MEDICARE MEDICARE PART Jun 18, PART A [id number] KALYANIDO PATIENT (WNR) (M) A 2017 VH81 2 [place] MEDICARE MEDICARE PART Jun 18, PART B [id number] DO KALYANI PATIENT (WNR) (M) B 2017 VH81 2 [place]AS UNITED MEDICARE MCR(Jun 18 [id number] Luz MEEK PATIENT HEALTHCARE ADVANTAGE NR) 2021 37 0 [facility] (WNR) Selected Encounter This section includes the information on record at CT for the Encounter. Date/Time Encounter Type Encounter Description Reason Provider Source Dec 12, 2021 02:16 Inpatient Visit DAILY HOSPITALIZATION DATA PM IHE [...] 2022 10:00 AM AMBULATORY - SURGERY [place] [facility] Mar 21, 2022 10:30 AM AMBULATORY - [...] The data comes from all CT treatment [facility]. Test Date/Time Test Type Test Details Facility Name October 31, 2021 07:37 AM Consult Order [facility] Cons [employer] November 15, 2021 10:37 AM Consult Order [facility] Cons [employer] Dec 06, 2021 12:52 PM [...] [place] OUTPATIENT Cons [facility] Blade [employer] Jan 15, 2022 10:08 PM Consult Order [facility]ALL[facility] CARE Cons [employer]ade [employer] Lab Results: +/- 30 days [...] Reference Range Comment Dec 15, 2021 [place] P4 GLU,BUN,CREAT,LYTES,CA Speci men Type: PLASMA 06:43 AM [facility] Comment: Tests performed on [employer] (405) SN:[id number] Ordering Provid er: ISATU TODD Report Released Date/Time: Dec 11, 2021 07:42 AM Reporting Lab: [facility] [address] [facility] [address] Performing Lab: [facility] [address] [facility] [address] UREA NITROGEN 9 7-25 SODIUM 137 135-145 POTASSIUM 3.8 3.5-5.0 CHLORIDE 105 100-110 CARBON DIOXIDE 26 20-30 ANION GAP 6 4-16 GLUCOSE 102 H 65-100 CREATININE 0.64 0.5-1.5 CALCIUM 8.1 L 8.5-10.5 eGFR(CKD-EPI 2020) >90.0 >60 Dec 15, 2021 06:43 AM [facility] CBC PROFILE Sp ecimen Type: BLOOD No comment enter ed. Ordering Provid er: ISATU TODD Report Released Date/Time: Dec 10, 2021 07:22 AM Reporting Lab: [facility] [address] [facility] [address] Performing Lab: [facility] [address] [facility] [address] WBC 5.7 4.5-11.0 RBC 4.22 L 4.23-5.66 [...] ABSOLUTE NRBC 0.00 0-0 Dec 14, 2021 [facility] CYTOGENETIC Specimen Type: ESOPHAGUS 02:59 PM [facility]) Comment: ~For T est: CYTOGENETIC FISH([facility]) ~FISH HER 2 NUE, FFPE See full report in Ecast Image display viewer/tab#LAB-Reference Ordering Provid er: NIURKA MILLER Report Released Date/Time: Dec 21, 2021 12:11 PM Reporting Lab: [facility] [address] [facility] [address] Performing Lab: [facility] CYTOGENETIC FISH([facility]) comment Dec 14, 2021 [facility] P4 GLU,BUN,CREAT,LYTES,CA Speci men Type: PLASMA 06:27 AM [facility] Comment: Tests performed on [employer] (405) SN:[id number] Ordering Provid er: ISATU TODD Report Released Date/Time: Dec 11, 2021 07:42 AM Reporting Lab: [facility] [address] [facility] [facility] [address] Performing Lab: [facility] [address] [facility] [address] UREA NITROGEN 10 7-25 SODIUM 137 135-145 POTASSIUM 4.0 3.5-5.0 CHLORIDE 104 100-110 CARBON DIOXIDE 25 20-30 ANION GAP 8 4-16 GLUCOSE 99 65-100 CREATININE 0.67 0.5-1.5 CALCIUM 8.2 L 8.5-10.5 eGFR(CKD-EPI 2020) >90.0 >60 Dec 14, 2021 06:27 AM [facility] CBC PROFILE Sp ecimen Type: BLOOD No comment enter ed. Ordering Provid er: ISATU TODD Report Released Date/Time: Dec 10, 2021 07:22 AM Reporting Lab: [facility] [address] [facility] [address] Performing Lab: [facility] [address] [facility] [address] WBC 6.0 4.5-11.0 RBC 4.29 4.23-5.66 HGB [...] ABSOLUTE NRBC 0.00 0-0 Dec 13, 2021 [facility] P4 GLU,BUN,CREAT,LYTES,CA Speci men Type: PLASMA 06:34 AM [facility] Comment: Tests performed on [employer] (405) SN:[id number] Ordering Provid er: ISATU TODD Report Released Date/Time: Dec 11, 2021 07:42 AM Reporting Lab: [facility] [address] [facility] [address] [facility] [address] [facility] [address] UREA NITROGEN 12 7-25 SODIUM 136 135-145 POTASSIUM 3.9 3.5-5.0 CHLORIDE 105 100-110 CARBON DIOXIDE 24 20-30 ANION GAP 7 4-16 GLUCOSE 102 H 65-100 CREATININE 0.66 0.5-1.5 CALCIUM 8.3 L 8.5-10.5 eGFR(CKD-EPI 2020) >90.0 >60 Dec 13, 2021 06:34 AM [facility] CBC PROFILE Sp ecimen Type: BLOOD No comment enter ed. Ordering Provid er: ISATU TODD Report Released Date/Time: Dec 10, 2021 07:22 AM Reporting Lab: [facility] [address] [facility] [address] Performing Lab: [facility] [address] [facility] [address] WBC 5.6 4.5-11.0 RBC 4.28 4.23-5.66 HGB [...] ABSOLUTE NRBC 0.00 0-0 Dec 12, 2021 [facility] P4 GLU,BUN,CREAT,LYTES,CA Speci men Type: PLASMA 06:21 AM [facility] Comment: Tests performed on [employer] (405) SN:[id number] Ordering Provid er: ISATU TODD Report Released Date/Time: Dec 11, 2021 07:42 AM Reporting Lab: [facility] [address] [facility] [address] Performing Lab: [facility] [address] [facility] [address] UREA NITROGEN 11 7-25 SODIUM 139 135-145 POTASSIUM 4.1 3.5-5.0 CHLORIDE 107 100-110 CARBON DIOXIDE 24 20-30 ANION GAP 8 4-16 GLUCOSE 110 H 65-100 CREATININE 0.70 0.5-1.5 CALCIUM 8.3 L 8.5-10.5 eGFR(CKD-EPI 2020) >90.0 >60 Dec 12, 2021 06:21 AM [facility] CBC PROFILE Sp ecimen Type: BLOOD No comment enter ed. Ordering Provid er: ISATU TODD Report Released Date/Time: Dec 10, 2021 07:22 AM Reporting Lab: [facility] [address] [facility] [address] [facility] [address] [facility] [address] WBC 5.5 4.5-11.0 RBC 4.37 4.23-5.66 HGB [...] 0.00 0-0 Dec 12, 2021 06:00 AM [facility] MAGNESIUM Sp ecimen Type: PLASMA Comment: Testin g Performed on [employer] (405) SN:[id number] Ordering Provid er: ISATU TODD Report Released Date/Time: Dec 12, 2021 08:24 AM Reporting Lab: [place] [facility] [address] [facility] [address] Performing Lab: [employer] [place] [facility] [address] [facility] [facility] [address] MAGNESIUM 1.8 1.6-2.6 Dec 12, 2021 06:00 AM [facility] PHOSPHORUS Sp ecimen Type: PLASMA Comment: Testin g Performed on [employer] (405) SN:[id number] Ordering Provid er: ISATU TODD Report Released Date/Time: Dec 12, 2021 08:24 AM Reporting Lab: [place] [facility] [address] [facility] [address] Performing Lab: [place] [facility] [address] [facility] [facility] [address] PHOSPHORUS 3.1 2.5-5.0 Dec 11, 2021 06:15 AM [employer] [place] [facility] ELECTROLYTES Sp ecimen Type: PLASMA Comment: Tests performed on [employer] (405) SN:[id number] Ordering Provid er: ISATU TODD Report Released Date/Time: Dec 10, 2021 07:22 AM Reporting Lab: [place] [facility] [address] [facility] [address] Performing Lab: [place] [facility] [address] [facility] [address] SODIUM 137 135-145 POTASSIUM 4.3 3.5-5.0 CHLORIDE 108 100-110 CARBON DIOXIDE 20 20-30 ANION GAP 9 4-16 Dec 11, 2021 06:15 AM [place] [employer] [facility] CBC PROFILE Sp ecimen Type: BLOOD Comment: Result s checked Ordering Provid er: ISATU TODD Report Released Date/Time: Dec 10, 2021 07:22 AM Reporting Lab: [place] [facility] [facility] [address] [facility] [address] Performing Lab: [facility] [place] [facility] [address] [facility] [address] WBC 5.8 4.5-11.0 RBC 4.37 4.23-5.66 HGB [...] ecimen Type: PLASMA Comment: Tests performed on [employer] (332) SN:[id number] Results checked Ordering Provid er: ISATU TODD Report Released Date/Time: Dec 11, 2021 07:44 AM Reporting Lab: [facility] [address] [facility] [address] Performing Lab: [place] [facility] [address] [facility] [address] PHOSPHORUS 3.0 2.5-5.0 Dec 10, 2021 08:05 AM [place] [facility] MAGNESIUM Sp ecimen Type: PLASMA Comment: [place] [id number] on Dec 10, 2021@08:31 Tests performed on [employer] (405) SN:[id number] Ordering Provid er: ISATU TODD Report Released Date/Time: Dec 10, 2021 07:22 AM Reporting Lab: [place] [facility] [address] [place] [facility] [place] [address] Performing Lab: [place] [facility] [address] [place] [facility] [place] [address] MAGNESIUM 1.7 1.6-2.6 Dec 10, 2021 08:05 AM [place] [facility] PHOSPHORUS Sp ecimen Type: PLASMA Comment: [place] [id number] on Dec 10, 2021@08:31 Tests performed on [employer] (405) SN:[id number] Ordering Provid er: ISATU TODD Report Released Date/Time: Dec 10, 2021 07:22 AM Reporting Lab: [place] [facility] [address] [place] [facility] [place] [address] Performing Lab: [place] [facility] [address] [place] [facility] [place] [address] PHOSPHORUS 1.8 L 2.5-5.0 Dec 10, 2021 08:05 AM [place] UREA NITROGEN Specimen Type: PLASMA [facility] Comment: [place] [id number] on Dec 10, 2021@08:31 Tests performed on [employer] (405) SN:[id number] Ordering Provid er: ISATU TODD Report Released Date/Time: Dec 10, 2021 07:22 AM Reporting Lab: [place] [facility] [address] [place] [facility] [place] [address] Performing Lab: [place] [facility] [address] [place] [facility] [place] [address] UREA NITROGEN 8 7-25 Dec 10, 2021 08:05 AM [place] [facility] GLUCOSE Sp ecimen Type: PLASMA Comment: [place] [id number] on Dec 10, 2021@08:31 Tests performed on [employer] (405) SN:[id number] Ordering Provid er: ISATU TODD Report Released Date/Time: Dec 10, 2021 07:22 AM Reporting Lab: [place] [facility] [address] [facility] [address] Performing Lab: [place] [facility] [address] [facility] [address] GLUCOSE 144 H 65-100 Dec 10, 2021 08:05 AM [place] [facility] ELECTROLYTES Sp ecimen Type: PLASMA Comment: [place] [id number] on Dec 10, 2021@08:31 Tests performed on [employer] (405) SN:[id number] Ordering Provid er: ISATU TODD Report Released Date/Time: Dec 10, 2021 07:22 AM Reporting Lab: [place] [facility] [address] [facility] [address] Performing Lab: [place] [facility] [address] [facility] [address] SODIUM 139 135-145 POTASSIUM 3.7 3.5-5.0 CHLORIDE 107 100-110 CARBON DIOXIDE 24 20-30 ANION GAP 8 4-16 Dec 10, 2021 08:05 AM [place] [facility] CALCIUM Sp ecimen Type: PLASMA Comment: [place] [id number] on Dec 10, 2021@08:31 Tests performed on [employer] (405) SN:[id number] Ordering Provid er: ISATU TODD Report Released Date/Time: Dec 10, 2021 07:22 AM Reporting Lab: [place] [facility] [address] [facility] [address] Performing Lab: [place] [facility] [address] [facility] [address] CALCIUM 8.3 L 8.5-10.5 Dec 10, 2021 08:05 AM [place] [facility] CBC PROFILE Sp ecimen Type: BLOOD No comment enter ed. Ordering Provid er: ISATU TODD Report Released Date/Time: Dec 10, 2021 07:22 AM Reporting Lab: [place] [facility] [address] [facility] [address] Performing Lab: [place] [facility] [address] [facility] [address] WBC 7.0 4.5-11.0 RBC 4.54 4.23-5.66 HGB [...] PLASMA AM [facility] PANEL Comment: [place] [id number] on Dec 10, 2021@08:31 Tests performed on [employer] (405) SN:[id number] Ordering Provid er: ISATU TODD Report Released Date/Time: Dec 10, 2021 07:22 AM Reporting Lab: [facility] [address] [facility] [address] Performing Lab: [facility] [address] [facility] [address] CREATININE 0.78 0.5-1.5 eGFR(CKD-EPI 2020) >90.0 >60 Dec 09, 2021 06:46 AM [place] [facility] MAGNESIUM Sp ecimen Type: PLASMA Comment: Tests performed on [employer] (405) SN:[id number] Ordering Provid er: ISATU TODD Report Released Date/Time: Dec 08, 2021 10:23 AM Reporting Lab: [place] [facility] [address] [facility] [address] Performing Lab: [place] [facility] [address] [facility] [address] MAGNESIUM 1.6 1.6-2.6 Dec 09, 2021 [facility] P4 GLU,BUN,CREAT,LYTES,CA Speci men Type: PLASMA 06:46 AM [facility] Comment: Tests performed on [employer] (405) SN:[id number] Ordering Provid er: ISATU TODD Report Released Date/Time: Dec 08, 2021 05:00 PM Reporting Lab: [facility] [address] [facility] [facility] [address] Performing Lab: [facility] [address] [facility] [facility] [address] UREA NITROGEN 6 L 7-25 SODIUM 134 L 135-145 POTASSIUM 3.7 3.5-5.0 CHLORIDE 103 100-110 CARBON DIOXIDE 23 20-30 ANION GAP 8 4-16 GLUCOSE 112 H 65-100 CREATININE 0.70 0.5-1.5 CALCIUM 8.1 L 8.5-10.5 eGFR(CKD-EPI 2020) >90.0 >60 Dec 09, 2021 06:46 AM [facility] CBC PROFILE Sp ecimen Type: BLOOD No comment enter ed. Ordering Provid er: ISATU TODD Report Released Date/Time: Dec 08, 2021 05:00 PM Reporting Lab: [facility] [address] [facility] [address] Performing Lab: [facility] [address] [facility] [address] WBC 7.1 4.5-11.0 RBC 4.40 4.23-5.66 HGB [...] 0.00 0-0 Dec 08, 2021 06:39 AM [place] [employer] T [facility] MAGNESIUM Sp ecimen Type: PLASMA Comment: Testin g Performed on [employer] (405) SN:[id number] Ordering Provid er: ISATU TODD Report Released Date/Time: Dec 07, 2021 10:32 AM Reporting Lab: [facility] [address] [facility] [address] Performing Lab: [facility] [address] [facility] [address] MAGNESIUM 1.5 L 1.6-2.6 Dec 08, 2021 [place] [employer] T P4 GLU,BUN,CREAT,LYTES,CA Speci men Type: PLASMA 06:39 AM [facility] Comment: Testin g Performed on [employer] (405) SN:[id number] Ordering Provid er: ISATU TODD Report Released Date/Time: Dec 07, 2021 10:32 AM Reporting Lab: [employer] T [facility] [address] [facility] [address] Performing Lab: [facility] [address] [facility] [address] UREA NITROGEN 6 L 7-25 SODIUM 136 135-145 POTASSIUM 3.3 L 3.5-5.0 CHLORIDE 104 100-110 CARBON DIOXIDE 22 20-30 ANION GAP 10 4-16 GLUCOSE 133 H 65-100 CREATININE 0.76 0.5-1.5 CALCIUM 8.4 L 8.5-10.5 eGFR(CKD-EPI 2020) >90.0 >60 Dec 08, 2021 06:39 AM WHITE [employer] T [facility] CBC PROFILE Sp ecimen Type: BLOOD No comment enter ed. Ordering Provid er: ISATU TODD Report Released Date/Time: Dec 07, 2021 10:32 AM Reporting Lab: [facility] [address] [facility] [address] Performing Lab: [facility] [address] [facility] WBC 8.4 4.5-11.0 RBC 4.75 4.23-5.66 [...] NRBC 0.00 0-0 Dec 07, 2021 06:42 [facility] LIVER PROFILE Specimen Typ e: PLASMA AM [facility] Comment: Tests performed on [employer] (405 SN:[id number] Ordering Provid er: PORFIRIO WALTERS Report Released Date/Time: Dec 06, 2021 06:57 PM Reporting Lab: [facility] [address] [facility] [address] Performing Lab: [facility] [address] [facility] [address] PROTEIN, TOTAL 5.7 L 6.0-8.5 ALBUMIN 2.4 L 3.2-5.0 BILIRUBIN, TOTAL 0.4 0.2-1.2 ALKALINE PHOSPHATASE 109 40-150 ALT(SGPT) 10 7-52 AST(SGOT) 15 5-34 FIB-4 SCORE 1.92 <2.67 Dec 07, 2021 [facility] P4 GLU,BUN,CREAT,LYTES,CA Speci men Type: PLASMA 06:42 AM [facility] Comment: Tests performed on [employer] (405) SN:[id number] Ordering Provid er: PORFIRIO WALTERS Report Released Date/Time: Dec 06, 2021 06:57 PM Reporting Lab: [place] [facility] [address] [facility] [address] Performing Lab: [place] [facility] [address] [facility] [address] UREA NITROGEN 9 7-25 SODIUM 135 135-145 POTASSIUM 3.5 3.5-5.0 CHLORIDE 103 100-110 CARBON DIOXIDE 22 20-30 ANION GAP 10 4-16 GLUCOSE 92 65-100 CREATININE 0.73 0.5-1.5 CALCIUM 8.0 L 8.5-10.5 eGFR(CKD-EPI 2020) >90.0 >60 Dec 07, 2021 06:42 AM [place] CBC PROFILE Specimen Type: BLOOD [facility] No comment enter ed. Ordering Provid er: PORFIRIO WALTERS Report Released Date/Time: Dec 06, 2021 06:57 PM Reporting Lab: [place] [facility] [address] [facility] [address] Performing Lab: [facility] [address] [facility] [address] WBC 5.7 4.5-11.0 RBC 4.15 L 4.23-5.66 [...] [facility] %) AUTOMATED Comment: Tests performed on [employer] (405) SN:[id number] Ordering Provid er: ISATU TODD Report Released Date/Time: Dec 07, 2021 10:28 AM Reporting Lab: [place] [facility] [address] [facility] [address] Performing Lab: [place] [facility] [address] [facility] [address] RETICULOCYTES (%) AUTOMATED 1.23 0. 6-2.0 RETICULOCYTES (ABS) AUTOMATED 0.052 0.030-0.090 Dec 06, 2021 09:45 [place] MRSA SURVL NARES Specimen Ty pe: NARES PM [facility] DNA No comment enter ed. Ordering Provid er: ALVARO VARGHESE Report Released Date/Time: Dec 07, 2021 02:20 AM Reporting Lab: [place] [facility] [address] [facility] [address] Performing Lab: [place] [facility] [address] [facility] [address] MRSA SURVL NARES DNA NEGATIVE NEGATIVE Dec 06, 2021 06:00 [place] URINALYSIS W/REFLEX TO Speci men Type: URINE PM [facility] CULTURE No comment enter ed. Ordering Provid er: JELANI ÁSNCHEZ Report Released Date/Time: Dec 06, 2021 11:57 AM Reporting Lab: [place] [facility] [address] [facility] [address] Performing Lab: [place] [facility] [address] [facility] [address] URINE COLOR Arlin YELLOW SPECIFIC GRAVITY 1.029 [...] 21, [place]IANT Comment: https://www.cdc.gov/coronavirus/2019-ncov/cases-updates/variant- surveillance/variant-info.html The [place] SARS CoV 2 [employer] Research Assay-GX is a next-generation sequencing (NGS) assa 2021 [facility] SEQUENCING y that determine s the complete genome sequence of the SARS-CoV-2 virus. The assay contains variant-tolerant primers to broaden and improve the coverage for variant detection and increase the sensitivity 12:00 [facility] PNL(WH) of the panel to enable detection from lower viral titer samples. The assay is run on the [employer] Sequencer, which performs automated library preparation, sequencing, analysis, and reporting. PM The sequence an alysis includes determination of viral phylogenetic lineage by comparison to the reference strain Wu[place]-Hu-1, GenBank: [id number]. Sequence determination may not be possible owing [...] [facility] [address] [facility] [address] Performing Lab: [facility] [address] [facility] [address] SARS-CoV-2 CLADE() 22C (OMICRON) SARS-CoV-2 LINEAGE() BA.2.12.1 Dec 06, 2021 12:00 [facility] COVID-19 AG SCREEN Specimen Type: NASAL CAVITY PM [facility] PANEL BINAX(405) Comment: Testi ng Performed By: Mike Briscoe Ordering Provid er: JELANI SÁNCHEZ Report Released Date/Time: Dec 08, 2021 08:23 AM Reporting Lab: [facility] [address] [facility] [address] Performing Lab: [facility] [address] [facility] [address] COVID-19 AG SCRN(wrj BINAX) POSITIVE HH NE G Dec 06, 2021 12:00 PM [facility] TROPONIN II Sp ecimen Type: PLASMA Comment: Tests performed on [employer] (405) SN:[id number] Ordering Provid er: JELANI SÁNCHEZ Report Released Date/Time: Dec 06, 2021 11:57 AM Reporting Lab: [facility] [address] [place] [facility] [place] [address] Performing Lab: [facility] [address] [facility] [address] TROPONIN II 0.03 0.00-0.29 Dec 06, 2021 12:00 PM [facility] LIVER PROFILE Sp ecimen Type: PLASMA Comment: Testin g Performed on [employer] (405) SN:[id number] Ordering Provid er: JELANI SÁNCHEZ Report Released Date/Time: Dec 06, 2021 11:57 AM Reporting Lab: [facility] [address] [facility] [address] Performing Lab: [facility] [address] [facility] [address] PROTEIN, TOTAL 6.6 6.0-8.5 ALBUMIN 2.8 L 3.2-5.0 BILIRUBIN, TOTAL 0.6 0.2-1.2 ALKALINE PHOSPHATASE 134 40-150 ALT(SGPT) 13 7-52 AST(SGOT) 18 5-34 FIB-4 SCORE 1.94 <2.67 Dec 06, 2021 [place] P4 GLU,BUN,CREAT,LYTES,CA Speci men Type: PLASMA 12:00 PM [facility] Comment: Testin g Performed on [employer] (405) SN:[id number] Ordering Provid er: JELANI SÁNCHEZ Report Released Date/Time: Dec 06, 2021 11:57 AM Reporting Lab: [facility] [facility] [address] [facility] [address] Performing Lab: [facility] [facility] [address] [facility] [address] UREA NITROGEN 13 7-25 SODIUM 138 135-145 POTASSIUM 3.8 3.5-5.0 CHLORIDE 103 100-110 CARBON DIOXIDE 23 20-30 ANION GAP 12 4-16 GLUCOSE 105 H 65-100 CREATININE 0.90 0.5-1.5 CALCIUM 8.7 8.5-10.5 eGFR(CKD-EPI 2020) >90.0 >60 Dec 06, 2021 12:00 PM [facility] BNP(P[facility] Sp ecimen Type: PLASMA Comment: Tests performed on [employer] (405) SN:[id number] Ordering Provid er: JELANI SÁNCHEZ Report Released Date/Time: Dec 06, 2021 11:57 AM Reporting Lab: [facility] [facility] [address] [facility] [address] Performing Lab: [facility] [address] [facility] [address] BNP(P) 224.8 H 10-100 Dec 06, 2021 [facility] [place] COVID-19+FLU/RSV DIAGNOSTIC Spe cimen Type: NASOPHARYNX 12:00 PM [facility] PANEL(405) Comment: Tests performed on [employer]ot[employer] (405) Critical results called to and read back by: ALESHIA WILKINSON RN 12/06/21 @ 1312 Ordering Provid er: JELANI SÁNCHEZ Report Released Date/Time: Dec 06, 2021 11:57 AM Reporting Lab: [facility] [address] [facility] [address] Performing Lab: [place] [facility] [address] [facility] [address] FLU A(PCR) NEGATIVE NEGATIVE FLU B(PCR) NEGATIVE NEGATIVE RSV(PCR) NEGATIVE NEGATIVE COVID-19([id number]) DETECTED HH NO T DETECTED Dec 06, 2021 [facility]:[address] [facility] Sp ecimen Type: BLOOD No comment enter ed. Ordering Provid er: JELANI SÁNCHEZ Report Released Date/Time: Dec 06, 2021 11:57 AM Reporting Lab: [facility] [address] [address] Performing Lab: [facility] [address] [address] WBC 7.2 4.5-11.0 RBC 4.86 4.23-5.66 HGB [...] 2021 07:43 /min mm[Hg] [place] PM T [facility] Dec 12, 0 WHITE 2021 07:37 [place] PM [place] [facility] Dec 12, 0 WHITE 2021 02:17 R[place] PM T [facility] Dec 12, 98 F 82 127/76 18 /min 97 % WHITE 2021 02:01 /min mm[Hg] R[place] PM T [facility] Dec 12, 0 2021 10:59 [place] AM [facility] Social History: Smoking Status (Most current) and [...] QUIT TOBACCO USE > 7 YEARS AGO [facility] Tobacco Use History This section includes a history of the smoking, or tobacco- related health factors, that were collected on or before the date of the Encounter. The data comes from the [place] facility where the Encounter took place. Date/Time Smoking Status/Tobacco Use Comment [place] [facility] Apr 01, 2020 01:16 PM QUIT TOBACCO USE 1-7 YEARS AGO [facility] Mar 24, 2020 03:00 PM QUIT TOBACCO USE [facility] Feb 21, 2019 04:11 PM QUIT TOBACCO USE 1-7 YEARS AGO [facility] Feb 20, 2019 03:38 PM QUIT TOBACCO USE 1-7 YEARS AGO [facility] Feb 03, 2019 09:50 AM QUIT TOBACCO USE 1-7 YEARS AGO [facility] [facility] May 25, 2016 11:53 PM QUIT [facility]BACCO [facility]ST [facility] May 23, 2016 06:57 PM QUIT TOBACCO USE > 7 YEARS AGO [facility] May 19, 2016 03:55 PM QUIT TOBACCO USE IN PAST YEAR [facility] May 19, 2016 10:29 AM QUIT TOBACCO USE 1-7 YEARS AGO [facility] May 01, 2016 07:26 PM QUIT TOBACCO USE IN PAST YEAR [facility] May 01, 2016 03:11 PM QUIT TOBACCO USE IN PAST YEAR [facility] May 01, 2016 11:19 AM QUIT TOBACCO USE IN PAST YEAR [facility] Mar 16, 2016 12:50 PM V1-PT DECLINES REF TO TOBACCO [facility] CESS PRGM Mar 16, 2016 12:50 PM V1-PT THINKING ABOUT QUIT [facility] TOBACCO USE Aug 12, 2015 08:48 AM CURRENT SMOKER [facility] Radiology Reports: +/- 30 days of the [...] W/WO CONTRAST: MARYELLEN LONG LUCAS LARES N [id number] -1950 [facility] Exm Date: DEC 13, 2021@12:57 Req Phys: ISATU TODD Loc: OP Unknown/0 12-15-2021@13:20 Img Loc: MRI IMAGING (OOS) Service: ZZGENERAL MEDICINE (Case [id number] COMPLETE) MRI ABDOMEN W/WO CONTRAST (M RI Detailed) CPT:47569 Reason for Study: further characterization of a [...] new lyphadenopathy REQUESTING MD: Isatu Todd PAGER: [phone] PHONE: [phone] Weight: 232.2 lb [105.32 kg] (12/12/2021 05:00) [...] patient will need to arrange for a driver/sales workers to take him/her home after the MRI [...] 2021 Date Verified: DEC 15, 2021 Director Underwriter Sales E-Sig:/ES/MARYELLEN LONG Report: MRI ABDOMEN W/WO CONTRAST [...] MALIGNANCY Primary Interpreting Staff: MARYELLEN LONG Staff (Director Underwriter Sales) / Dec 10, 2021 09:[address] ABDOMEN & PELVIS: RADIOLOGY,OUTSIDE [facility] PARIST BENITA MEEKLAS N [id number] -1950 [facility] Ex Date: DEC 10, 2021@09:30 Req Phys: ISATU TODD Loc: 1S MED/12-10@10:57 Img Loc: CT SCAN (OOS) Service: [facility] MEDICINE (Case [id number] COMPLETE) CT ABD & PELVIS WITHOUT CONT RAST (CT Detailed) CPT:86623 Reason for Study: 71 yo male with [...] INDEX - NO HEIGHTS FOUND Pager number: [phone] STAT orders MUST be call ed to RADIOLOGY [phone] to speak to the appropriate studio technician. Report Status: Verified Date Reported: DEC 10, 2021 Date Verified: DEC 10, 2021 Director Underwriter Sales E-Sig: Report: EXAM: CT abdomen and pelvis [...] ph nodes. READING PHYSICIAN: Ramone Munoz D.O. [phone] 12/10/2021 10:55 EDT [facility] National Teleradiology Program [phone] (For Medical Practitioner Use Only ) [address], [facility] [address], [address] [place] [address] Attention Patients / Veterans: If you have ques tions or concerns about these test results, please contact your o rdering provider or primary care team. Primary Diagnostic Code: SIGNIFICANT ABNORMALIT Y, ATTN NEEDED Primary Interpreting Staff: RADIOLOGY,OUTSIDE SERVICE, Staff Physician / Dec 09, 2021 07:34 AM BASW (MODIFIED): JESSIE CHENEY TARA ER JCLUCAS LARES N [id number] -1950 [facility] Exm Date: DEC 09, 2021@07:34 Req Phys: PEYTONISATU Manjarrez Loc: 1S MED/12-09@11:26 Img Loc: XRAY (OOS) Service: [facility] MEDICINE (Case [id number] COMPLETE) BASW (MODIFIED) (RAD Detaile d) CPT:70485 Contrast Media : Barium Reason for Study: dysphagia ?esophageal spasm Clinical History: Report Status: Verified Date Reported: DEC 09, 2021 Date Verified: DEC 09, 2021 Director Underwriter Sales E-Sig:/ES/JESSIE CHENEY Report: BASW (MODIFIED) , 12/09/2021 [...] NO IMMEDIATE ATTENTION REQUIRED Primary Interpreting Staff: EJSSIE CHENEY, RADIOLOGIST (Director Underwriter Sales) /TLC Dec 06, 2021 12:[address] CHEST (INCLUDES ADRENALS): JESSIE CHENEY LUCAS LARES N [id number] -1950 [facility] Exm Date: DEC 06, 2021@12:59 Req Phys: JELANI SÁNCHEZ Pat Loc: [facility] ED DAYS M 1RD (Req'g Loc) Img Loc: CT SCAN (OOS) Service: Unknown (Case [id number] COMPLETE) CT THORAX W/O CONT (CT Detai led) CPT:90400 Reason for Study: Opacification right chest Clinical History: No contrast allergy BUN: 13 (12/06/21 12:00) CREATI: 0.90 (12/06/21 12:00) eGFR 05/16/21 09:43 52 L Weight: 232.6 lb [105.51 kg] (12/06/2021 11:40) BODY MASS INDEX - NO HEIGHTS FOUND Pager number: [phone] STAT orders MUST be called t o RADIOLOGY [phone] to speak to the appropriate studio technician. Indications - Other: Opacification right chest, covid positive, lung cancer histo Report Status: Verified Date Reported: DEC 06, 2021 Date Verified: DEC 06, 2021 Director Underwriter Sales E-Sig:/ES/JESSIE CHENEY Report: CT THORAX W/O CONT [...] Primary Interpreting Staff: JESSIE CHENEY, RADIOLOGIST (Director Underwriter Sales) Primary Interpreting Resident: PRINCE CHAMPION, Resident /BR Dec 06, 2021 11:58 AM CHEST SINGLE VIEW: JESSIE CHENEY DOUGLAS N [id number] -1950 M [facility] Exm Date: DEC 06, 2021@11:58 Req Phys: GONZALO,JELANI Link Pat Loc: [facility] ED DAYS M 1RD (Req'g Loc) Img Loc: XRAY (OOS) Service: Unknown (Case [id number] COMPLETE) CHEST SINGLE VIEW (RAD Detai led) CPT:13772 Proc Modifiers : PORTABLE EXAM Reason for Study: SOB, home covid test positive Clinical History: Report Status: Verified Date Reported: DEC 06, 2021 Date Verified: DEC 06, 2021 Director Underwriter Sales E-Sig:/ES/JESSIE CHENEY Report: Exam type: Chest x-ray [...] Primary Interpreting Staff: JESSIE CHENEY, RADIOLOGIST (Director Underwriter Sales) /TLC Pathology Reports: +/- 30 days of [...] MILLER LOCAL TITLE: LR SURGICAL PATHOLOGY REPORT [facility] STANDARD TITLE: PATHOLOGY REPORT DATE OF NOTE: JAN 03, 2022@10:28:01 ENTRY DATE: JAN 03, 2022@10:28:01 AUTHOR: NIURKA MILLER EXP COSIGNER: URGENCY: STATUS: COMPLETED $APHDR Reporting Lab: [facility] [CLIA# [id number]] [address] [place] [address] - - - - - - [...] automatically d ocumented from SURGERY package case #[id number] Field (#32) PRINCIPAL PRE-OP DIAGNOSIS, (#.72) OTHER [...] automatically d ocumented from SURGERY package case #[id number] Field (#34) PRINCIPAL POST-OP DIAG, (#.74) OTHER [...] Label: Lucas Meek Paperwork: Lucas Meek Cassette: [id number];..;KALYANI;.;405;[id number] Specimen is labeled: ES bx Received in formalin are several pieces of pale boyd and brown tissue, 1.2 x 0.7 cm in aggregate. Submitted entirely in 1 cassette [id number];..;KALYANI;.;405;[id number] SAW 12/15/2021 Microscopic exam: *+* MODIFIED REPORT *+* (Last modified: JAN 03, 2022@09:30:20 typed by NIURKA WADDELL) DIAGNOSIS: A. 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 Kendell long. TIARA Coombs was notified on 12/21/21. Modified on 01/03/22 to include report from [facility] stating that tumor is NEGATIVE for her2/ matheus amplification. The attending pathologist who signature mansoor ears on this report has reviewed all diagnostic slides and has edited t he gross and/or microscopic portion of this report in rendering the final pathologic diagnosis. [address] [address] CPT: 42428 /emely/ NIURKA Yeung MD Signed Jan 03, 2022@10:28 Performing Laboratory: Surgical Pathology Report Performed By: [facility] [CLIA# [id number]] [address] [place] [address] $FTR - - - - - [...] - - LUCAS MEEK STANDARD FORM 515 ID:[id number] SEX:M :1950 AGE: 71 LOC: SDM END PCP: Isatu Todd /emely/ NIURKA MILLER Staff Signed: 01/03/2022 10:28 Dec 21, 2021 11:46 AM LR SURGICAL PATHOLOGY REPORT: STEFANY MILLER [facility] LOCAL TITLE: LR SURGICAL PATHOLOGY REPORT [facility] STANDARD TITLE: PATHOLOGY REPORT DATE OF NOTE: DEC 21, 2021@11:46:59 ENTRY DATE: DEC 21, 2021@11:46:59 AUTHOR: NIURKA MILLER EXP COSIGNER: URGENCY: STATUS: COMPLETED $APHDR Reporting Lab: [facility] [CLIA# [id number]] [address] [place] [address] - - - - - - [...] Submitted by: ISATU TODD Date obtained: Marizol rojsa 2021 14:59 - - - - - [...] automatically d ocumented from SURGERY package case #[id number] Field (#32) PRINCIPAL PRE-OP DIAGNOSIS, (#.72) OTHER [...] automatically d ocumented from SURGERY package case #[id number] Field (#34) PRINCIPAL POST-OP DIAG, (#.74) OTHER [...] Label: Lucas Meek Paperwork: Lucas Meek Cassette: [id number];..;KALYANI;.;405;[id number] Specimen is labeled: ES bx Received in formalin are several pieces of pale boyd and brown tissue, 1.2 x 0.7 cm in aggregate. Submitted entirely in 1 cassette [id number];..;KALYANI;.;405;[id number] SAW 12/15/2021 Microscopic exam: DIAGNOSIS: A. 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 Kendell long. TIARA Coombs was notified on 12/21/21. The attending pathologist who signature mansoor ears on this report has reviewed all diagnostic slides and has edited t he gross and/or microscopic portion of this report in rendering the final pathologic diagnosis. [address] [address] CPT: 88240 /emely/ NIURKA Yeung MD Signed Dec 21, 2021@11:46 Performing Laboratory: Surgical Pathology Report Performed By: [facility] [CLIA# [id number]] [address] [place] [address] $FTR - - - - - [...] - - LUCAS MEEK STANDARD FORM 515 ID:[id number] SEX:M :1950 AGE: 71 LOC: SDM END PCP: Isatu Todd /charmaine Yeung MD Signed: 12/21/2021 11:46 Dec 06, 2021 03:30 PM LR MICROBIOLOGY REPORT: [facility] Reporting Lab: [facility] [CLIA# [id number]] [address] [place] [address] Accession [UID]: [id number] [[id number]] Receiv ed: Dec 06, 2021@16:14 Collection sample: BLOOD CUL T BOTTLE(NIRMAL/AERO)Collection date: Dec 06, 2021 15:30 Site/Specimen: BLOOD Provider: JELANI SÁNCHEZ Comment on specimen: LAC Test(s) ordered: BLOOD CULTURE ANAEROBI C....... completed: Dec 12, 2021 06:18 * BACTERIOLOGY FINAL REPORT => Dec 12, 2021 06:1 8 TECH CODE: [id number] Bacteriology Remark(s): NO GROWTH IN 5 DAYS =--=--=--=--=--=--=--=--=--=--=--=--=--= --=--=--=--=--=--=--=--=--=--=--=--=-- Performing Laboratory: Bacteriology Report Performed By: [facility] [CLIA# [id number]] [address] [place] [address] Dec 06, 2021 03:30 PM LR MICROBIOLOGY REPORT: [facility] Reporting Lab: [facility] [CLIA# [id number]] [address] [place] [address] Accession [UID]: [id number] [[id number]] Receiv ed: Dec 06, 2021@16:14 Collection sample: BLOOD CUL T BOTTLE(NIRMAL/AERO)Collection date: Dec 06, 2021 15:30 Site/Specimen: BLOOD Provider: JELANI SÁNCHEZ Comment on specimen: LAC Test(s) ordered: BLOOD CULTURE AEROBIC. ........ completed: Dec 12, 2021 06:17 * BACTERIOLOGY FINAL REPORT => Dec 12, 2021 06:1 7 TECH CODE: [id number] Bacteriology Remark(s): NO GROWTH IN 5 DAYS =--=--=--=--=--=--=--=--=--=--=--=--=--= --=--=--=--=--=--=--=--=--=--=--=--=-- Performing Laboratory: Bacteriology Report Performed By: [facility] [CLIA# [id number]] [address] [place] [address]
--- OUTSIDE RECORDS SUMMARY | 2022-01-19 08:38 | XMS_ITS ---
DAILY HOSPITALIZATION DATA [facility] Encounter Summary Created on:December 12, 2021 Patient:LUCAS MEEK Sex:Male :1950 Author Organization [facility] Address [address] [place] [id number] Support Name Relationship Address Phone YUSRA EMEK Unavailable [address] [place] [address] YUSRA MEEK Unavailable [address] [place] [facility] [place] [address] CLAY MOSLEY Unavailable Unavailable SJ SANTACRUZ Unavailable [...] MEDICARE MEDICARE PART Jun 18, PART A [id number] DO KALYANI PATIENT (WNR) (M) A 2016 13A 1 UGLAS MEDICARE MEDICARE PART Jun 18, PART A [id number] DO KALYANI PATIENT (WNR) (M) A 2017 VH81 2 LAS MEDICARE MEDICARE PART Jun 18, PART B [id number] DO KALYANI PATIENT (WNR) (M) B 2016 13A 1 UGLAS MEDICARE MEDICARE PART Jun 18, PART B [id number] DO KALYANI PATIENT (WNR) (M) B 2017 VH81 2 UGLAS UNITED MEDICARE MCR(Jun 18 [id number] Luz MEEK PATIENT HEALTHCARE ADVANTAGE NR) 2021 37 0 [facility] (WNR) Selected Encounter This section includes the information on record at [place] for the Encounter. Date/Time Encounter Type Encounter Description Reason Provider Source Dec 12, 2021 02:23 Inpatient Visit DAILY HOSPITALIZATION DATA PM IHE Encounter Template Text not used by [place] Plan of Treatment: Future Appointments (+ 6 months) and Future Tests (+/- 45 days) The Plan of Treatment section includes future care activities for the patient from all [place] treatmentfacilities. This section includes future appointments and [...] AM AMBULATORY - NONE [place] [facility] Jan 06, 2022 02:00 PM [place] [facility] Jan 10, 2022 11:30 AM AMBULATORY - MEDICINE [facility] Jan 24, 2022 08:00 [place] [facility] Feb 21, 2022 10:00 AM [place]BUL[place] [facility] Mar 21, 2022 10:30 AM [...] The data comes from all [place] treatment [facility]. Test Date/Time Test Type Test Details Facility Name October 31, 2021 07:37 AM Consult Order [facility]EGD [facility] Cons Warehouse Administrative Assistant's Choice November 15, 2021 10:[address] [facility] CARE-PODIATRY Cons Warehouse Administrative Assistant's Choice Dec 06, 2021 12:52 PM [...] [place] OUTPATIENT Cons [facility] Warehouse Administrative Assistant's Choice Jan 15, 2022 10:[address] [facility] CARE-PALLIATIVE CARE Cons Warehouse Administrative Assistant's Choice Lab Results: +/- 30 days [...] Reference Range Comment Dec 15, 2021 [place] P4 GLU,BUN,CREAT,LYTES,CA Speci men Type: PLASMA 06:43 AM [facility] Comment: Tests performed on USMD (405) SN:[id number] Ordering Provid er: ISATU TODD Report Released Date/Time: Dec 11, 2021 07:42 AM Reporting Lab: [facility] [address] [facility] [address] Performing Lab: [facility] [address] [facility] [address] UREA NITROGEN 9 7-25 SODIUM 137 135-145 POTASSIUM 3.8 3.5-5.0 CHLORIDE 105 100-110 CARBON DIOXIDE 26 20-30 ANION GAP 6 4-16 GLUCOSE 102 H 65-100 CREATININE 0.64 0.5-1.5 CALCIUM 8.1 L 8.5-10.5 eGFR(CKD-EPI 2020) >90.0 >60 Dec 15, 2021 06:43 AM [place] [facility] CBC PROFILE Sp ecimen Type: BLOOD No comment enter ed. Ordering Provid er: ISATU TODD Report Released Date/Time: Dec 10, 2021 07:22 AM Reporting Lab: [facility] [address] [facility] [address] Performing Lab: [facility] [address] [facility] [address] WBC 5.7 4.5-11.0 RBC 4.22 L 4.23-5.66 [...] Dec 14, 2021 [facility] CYTOGENETIC Specimen Type: ESOPHAGUS 02:59 PM VAOC FISH([facility]) Comment: ~For T est: CYTOGENETIC FISH([facility]) ~FISH HER 2 NUE, FFPE See full report in Project Colourjack Image display viewer/tab#LAB-Reference Ordering Provid er: NIURKA MILLER Report Released Date/Time: Dec 21, 2021 12:11 PM Reporting Lab: [facility] [address] [facility] [address] Performing Lab: [facility] CYTOGENETIC FISH([facility]) comment Dec 14, 2021 [facility] P4 GLU,BUN,CREAT,LYTES,CA Speci men Type: PLASMA 06:27 AM [facility] Comment: Tests performed on USMD (405) SN:[id number] Ordering Provid er: ISATU TODD Report Released Date/Time: Dec 11, 2021 07:42 AM Reporting Lab: [facility] [address] [facility] [address] Performing Lab: [facility] [address] [facility] [address] UREA NITROGEN 10 7-25 SODIUM 137 135-145 [...] [facility] [address] [facility] [address] Performing Lab: [facility] [address] [facility] [address] WBC 6.0 4.5-11.0 RBC 4.29 4.23-5.66 HGB [...] 0.00 0-0 Dec 13, 2021 [facility] P4 GLU,BUN,CREAT,LYTES,CA Speci men Type: PLASMA 06:34 AM [facility] Comment: Tests performed on USMD (405) SN:[id number] Ordering Provid er: ISATU TODD Report Released Date/Time: Dec 11, 2021 07:42 AM Reporting Lab: [facility] [address] [facility] [address] Performing Lab: [facility] [address] [facility] [address] UREA NITROGEN 12 7-25 SODIUM 136 135-145 POTASSIUM 3.9 3.5-5.0 CHLORIDE 105 100-110 CARBON DIOXIDE 24 20-30 ANION GAP 7 4-16 GLUCOSE 102 H 65-100 CREATININE 0.66 0.5-1.5 CALCIUM 8.3 L 8.5-10.5 eGFR(CKD-EPI 2020) >90.0 >60 Dec 13, 2021 06:34 AM [facility] CBC PROFILE Sp ecimen Type: BLOOD No comment enter ed. Ordering Provid er: ISATU TODD Report Released Date/Time: Dec 10, 2021 07:22 AM Reporting Lab: [facility] [address] [facility] [address] Performing Lab: [facility] [address] [facility] [address] WBC 5.6 4.5-11.0 RBC 4.28 4.23-5.66 HGB [...] [facility] Comment: Tests performed on USMD (405) SN:[id number] Ordering Provid er: ISATU TODD Report Released Date/Time: Dec 11, 2021 07:42 AM Reporting Lab: [facility] [address] [facility] [address] Performing [facility]: [facility] [address] [facility] [address] UREA NITROGEN 11 7-25 SODIUM 139 135-145 [...] Dec 10, 2021 07:22 AM Reporting Lab: [facility] [address] [facility] [address] Performing Lab: [facility] [address] [facility] [address] WBC 5.5 4.5-11.0 RBC 4.37 4.23-5.66 HGB [...] 0.00 0-0 Dec 12, 2021 06:00 AM [facility] MAGNESIUM Sp ecimen Type: PLASMA Comment: Testin g Performed on USMD (405) SN:[id number] Ordering Provid er: ISATU TODD Report Released Date/Time: Dec 12, 2021 08:24 AM Reporting Lab: [place] [facility] [address] [facility] [address] Performing Lab: [employer] [place] [facility] [address] [facility] [address] MAGNESIUM 1.8 1.6-2.6 Dec 12, 2021 06:00 AM [facility]T [facility] PHOSPHORUS Sp ecimen Type: PLASMA Comment: Testin g Performed on USMD (405) SN:[id number] Ordering Provid er: ISATU TODD Report Released Date/Time: Dec 12, 2021 08:24 AM Reporting Lab: [place] [facility] [address] [facility] [address] Performing Lab: [place] [facility] [address] [facility] [address] PHOSPHORUS 3.1 2.5-5.0 Dec 11, 2021 06:15 AM [employer] [place] Transp[facility]T [facility] ELECTROLYTES Sp ecimen Type: PLASMA Comment: Tests performed on USMD (405) SN:[id number] Ordering Provid er: ISATU TODD Report Released Date/Time: Dec 10, 2021 07:22 AM Reporting Lab: [place] [facility] [address] [facility] [address] Performing Lab: [place] [facility] [address] [facility] [address] SODIUM 137 135-145 POTASSIUM 4.3 3.5-5.0 CHLORIDE 108 100-110 CARBON DIOXIDE 20 20-30 ANION GAP 9 4-16 Dec 11, 2021 06:15 AM [place] [employer] [facility] CBC PROFILE Sp ecimen Type: BLOOD Comment: Result s checked Ordering Provid er: ISATU TODD Report Released Date/Time: Dec 10, 2021 07:22 AM Reporting Lab: [place] [facility] [address] [facility] [address] Performing Lab: [facility] [place] [facility] [address] [facility] [address] WBC 5.8 4.5-11.0 RBC 4.37 4.23-5.66 HGB [...] 0.00 0-0 Dec 11, 2021 06:00 AM [facility] PHOSPHORUS Sp ecimen Type: PLASMA Comment: Tests performed on USMD (013) SN:[id number] Results checked Ordering Provid er: ISATU TODD Report Released Date/Time: Dec 11, 2021 07:44 AM Reporting Lab: [facility] [address] [facility] [address] Performing Lab: [place] [facility] [address] [facility] [address] PHOSPHORUS 3.0 2.5-5.0 Dec 10, 2021 08:05 AM [place] [facility] MAGNESIUM Sp ecimen Type: PLASMA Comment: [place] [id number] on Dec 10, 2021@08:31 Tests performed on USMD (405) SN:[id number] Ordering Provid er: ISATU TODD Report Released Date/Time: Dec 10, 2021 07:22 AM Reporting Lab: [place] [facility] [address] [place] [facility] [place] [address] Performing Lab: [place] [facility] [address] [place] [facility] [place] [address] MAGNESIUM 1.7 1.6-2.6 Dec 10, 2021 08:05 AM [place] UREA NITROGEN Specimen Type: PLASMA [facility] Comment: [place] [id number] on Dec 10, 2021@08:31 Tests performed on USMD (405) SN:[id number] Ordering Provid er: ISATU TODD Report Released Date/Time: Dec 10, 2021 07:22 AM Reporting Lab: [place] [facility] [address] [place] [facility] [place] [address] Performing Lab: [place] [facility] [address] [place] [facility] [place] [address] UREA NITROGEN 8 7-25 Dec 10, 2021 08:05 AM [place] [facility] PHOSPHORUS Sp ecimen Type: PLASMA Comment: [place] [id number] on Dec 10, 2021@08:31 Tests performed on USMD (405) SN:[id number] Ordering Provid er: ISATU TODD Report Released Date/Time: Dec 10, 2021 07:22 AM Reporting Lab: [place] [facility] [address] [place] [facility] [place] [address] Performing Lab: [place] [facility] [address] [place] [facility] [place] [address] PHOSPHORUS 1.8 L 2.5-5.0 Dec 10, 2021 08:05 AM [place] [facility] CALCIUM Sp ecimen Type: PLASMA Comment: [place] [id number] on Dec 10, 2021@08:31 Tests performed on USMD (405) SN:[id number] Ordering Provid er: ISATU TODD Report Released Date/Time: Dec 10, 2021 07:22 AM Reporting Lab: [place] [facility] [address] [facility] [address] Performing Lab: [place] [facility] [address] [facility] [address] CALCIUM 8.3 L 8.5-10.5 Dec 10, 2021 08:05 AM [place] [facility] GLUCOSE Sp ecimen Type: PLASMA Comment: [place] [id number] on Dec 10, 2021@08:31 Tests performed on Pham Gamer Guides (405) SN:[id number] Ordering Provid er: ISATU TODD Report Released Date/Time: Dec 10, 2021 07:22 AM Reporting Lab: [place] [facility] [address] [facility] [address] Performing Lab: [place] [facility] [address] [facility] [address] GLUCOSE 144 H 65-100 Dec 10, 2021 08:05 AM [place] [facility] ELECTROLYTES Sp ecimen Type: PLASMA Comment: [place] [id number] on Dec 10, 2021@08:31 Tests performed on USMD (405) SN:[id number] Ordering Provid er: ISATU TODD Report Released Date/Time: Dec 10, 2021 07:22 AM Reporting Lab: [place] [facility] [address] [facility] [address] Performing Lab: [place] [facility] [address] [facility] [address] SODIUM 139 135-145 POTASSIUM 3.7 3.5-5.0 CHLORIDE 107 100-110 CARBON DIOXIDE 24 20-30 ANION GAP 8 4-16 Dec 10, 2021 08:05 [place] CREATININE WITH eGFR Specime n Type: PLASMA AM [facility] PANEL Comment: [place] [id number] on Dec 10, 2021@08:31 Tests performed on USMD (405) SN:[id number] Ordering Provid er: ISATU TODD Report Released Date/Time: Dec 10, 2021 07:22 AM Reporting Lab: [place] [facility] [address] [facility] [address] Performing Lab: [place] [facility] [address] [facility] [address] CREATININE 0.78 0.5-1.5 eGFR(CKD-EPI 2020) >90.0 >60 Dec 10, 2021 08:05 AM [facility] CBC PROFILE Sp ecimen Type: BLOOD No comment enter ed. Ordering Provid er: ISATU TODD Report Released Date/Time: Dec 10, 2021 07:22 AM Reporting Lab: [place] [facility] [facility] [address] [facility] [address] Performing Lab: [place] [facility] [facility] [address] [facility] [address] WBC 7.0 4.5-11.0 RBC 4.54 4.23-5.66 HGB [...] 0.00 0-0 Dec 09, 2021 06:46 AM [facility] MAGNESIUM Sp ecimen Type: PLASMA Comment: Tests performed on USMD (748) SN:[id number] Ordering Provid er: ISTAU TODD Report Released Date/Time: Dec 08, 2021 10:23 AM Reporting Lab: [facility] [address] [facility] [address] Performing Lab: [facility] [address] [facility] [address] MAGNESIUM 1.6 1.6-2.6 Dec 09, 2021 [facility] P4 GLU,BUN,CREAT,LYTES,CA Speci men Type: PLASMA 06:46 AM [facility] Comment: Tests performed on USMD (405) SN:[id number] Ordering Provid er: ISATU TODD Report Released Date/Time: Dec 08, 2021 05:00 PM Reporting Lab: [facility] [address] [facility] [address] Performing Lab: [facility] [address] [facility] [address] UREA NITROGEN 6 L 7-25 SODIUM 134 [...] Dec 08, 2021 05:00 PM Reporting Lab: [facility] [address] [facility] [address] Performing Lab: [facility] [address] [facility] [address] WBC 7.1 4.5-11.0 RBC 4.40 4.23-5.66 HGB [...] 0.00 0-0 Dec 08, 2021 06:39 AM [place] [employer] T [facility] MAGNESIUM Sp ecimen Type: PLASMA Comment: Testin g Performed on USMD (405) SN:[id number] Ordering Provid er: ISATU TODD Report Released Date/Time: Dec 07, 2021 10:32 AM Reporting Lab: [facility] [address] [facility] [address] Performing Lab: [facility] [address] [facility] [address] MAGNESIUM 1.5 L 1.6-2.6 Dec 08, 2021 [place] event[employer]osity T P4 GLU,BUN,CREAT,LYTES,CA Speci men Type: PLASMA 06:39 AM [facility] Comment: Testin g Performed on USMD (405) SN:[id number] Ordering Provid er: ISATU TODD Report Released Date/Time: Dec 07, 2021 10:32 AM Reporting Lab: [employer] T [facility] [address] [facility] [address] Performing Lab: [facility] [address] [facility] [address] UREA NITROGEN 6 L 7-25 SODIUM 136 135-145 POTASSIUM 3.3 L 3.5-5.0 CHLORIDE 104 100-110 CARBON DIOXIDE 22 20-30 ANION GAP 10 4-16 GLUCOSE 133 H 65-100 CREATININE 0.76 0.5-1.5 CALCIUM 8.4 L 8.5-10.5 eGFR(CKD-EPI 2020) >90.0 >60 Dec 08, 2021 06:39 AM [place] [employer] T [facility] CBC PROFILE Sp ecimen Type: BLOOD No comment enter ed. Ordering Provid er: ISATU TODD Report Released Date/Time: Dec 07, 2021 10:32 AM Reporting Lab: [facility] [address] [facility] [address] Performing Lab: [facility] [address] [facility] WBC 8.4 4.5-11.0 RBC 4.75 4.23-5.66 [...] LIVER PROFILE Specimen Typ e: PLASMA AM [facility] Comment: Tests performed on USMD (405 SN:[id number] Ordering Provid er: PORFIRIO WALTERS Report Released Date/Time: Dec 06, 2021 06:57 PM Reporting Lab: [facility] [address] [facility] [address] Performing Lab: [facility] [address] [facility] [address] PROTEIN, TOTAL 5.7 L 6.0-8.5 ALBUMIN 2.4 L 3.2-5.0 BILIRUBIN, TOTAL 0.4 0.2-1.2 ALKALINE PHOSPHATASE 109 40-150 ALT(SGPT) 10 7-52 AST(SGOT) 15 5-34 FIB-4 SCORE 1.92 <2.67 Dec 07, 2021 [facility] P4 GLU,BUN,CREAT,LYTES,CA Speci men Type: PLASMA 06:42 AM [facility] Comment: Tests performed on USMD (405) SN:[id number] Ordering Provid er: PORFIRIO WALTERS Report Released Date/Time: Dec 06, 2021 06:57 PM Reporting Lab: [place] [facility] [address] [facility] [address] Performing Lab: [place] [facility] [address] [facility] [address] UREA NITROGEN 9 7-25 SODIUM 135 135-145 POTASSIUM 3.5 3.5-5.0 CHLORIDE 103 100-110 CARBON DIOXIDE 22 20-30 ANION GAP 10 4-16 GLUCOSE 92 65-100 CREATININE 0.73 0.5-1.5 CALCIUM 8.0 L 8.5-10.5 eGFR(CKD-EPI 2020) >90.0 >60 Dec 07, 2021 06:42 AM [place] CBC PROFILE Specimen Type: BLOOD [facility] No comment enter ed. Ordering Provid er: PORFIRIO WALTERS Report Released Date/Time: Dec 06, 2021 06:57 PM Reporting Lab: [place] [facility] [address] [facility] [address] Performing Lab: [facility] [address] [facility] [address] WBC 5.7 4.5-11.0 RBC 4.15 L 4.23-5.66 [...] [facility] %) AUTOMATED Comment: Tests performed on USMD (405) SN:[id number] Ordering Provid er: ISATU TODD Report Released Date/Time: Dec 07, 2021 10:28 AM Reporting Lab: [place] [facility] [address] [facility] [address] Performing Lab: [place] [facility] [address] [facility] [address] RETICULOCYTES (%) AUTOMATED 1.23 0. 6-2.0 RETICULOCYTES (ABS) AUTOMATED 0.052 0.030-0.090 Dec 06, 2021 09:45 [place] MRSA SURVL NARES Specimen Ty pe: NARES PM [facility] DNA No comment enter ed. Ordering Provid er: ALVARO VARGHESE Report Released Date/Time: Dec 07, 2021 02:20 AM Reporting Lab: [place] [facility] [address] [facility] [address] Performing Lab: [place] [facility] [address] [facility] [address] MRSA SURVL NARES DNA NEGATIVE NEGATIVE Dec 06, 2021 06:00 [place] URINALYSIS W/REFLEX TO Speci men Type: URINE PM [facility] CULTURE No comment enter ed. Ordering Provid er: JELANI SÁNCHEZ Report Released Date/Time: Dec 06, 2021 11:57 AM Reporting Lab: [place] [facility] [address] [facility] [address] Performing Lab: [place] [facility] [address] [facility] [address] URINE COLOR Arlin YELLOW SPECIFIC GRAVITY 1.029 [...] 21, [place]IANT Comment: https://www.cdc.gov/coronavirus/2019-ncov/cases-updates/variant- surveillance/variant-info.html The Stealth10 SARS CoV 2 [employer] Research Assay-GX is a next-generation sequencing (NGS) assa 2021 [facility] SEQUENCING y that determine s the complete genome sequence of the SARS-CoV-2 virus. The assay contains variant-tolerant primers to broaden and improve the coverage for variant detection and increase the sensitivity 12:00 [facility] PNL(WH) of the panel to enable detection from lower viral titer samples. The assay is run on the IPTEGO Sequencer, which performs automated library preparation, sequencing, analysis, and reporting. PM The sequence an alysis includes determination of viral phylogenetic lineage by comparison to the reference strain Wuhan-Hu-1, GenBank: [id number]. Sequence determination may not be possible owing [...] Dec 06, 2021 01:13 PM Reporting Lab: [facility] [address] [facility] [address] Performing Lab: [facility] [address] [facility] [address] SARS-CoV-2 CLADE() 22C (OMICRON) SARS-CoV-2 LINEAGE() BA.2.12.1 Dec 06, 2021 12:00 [facility] COVID-19 AG SCREEN Specimen Type: NASAL CAVITY PM [facility] PANEL BINAX(405) Comment: Testi ng Performed By: Mike Briscoe Ordering Provid er: JELANI SÁNCHEZ Report Released Date/Time: Dec 08, 2021 08:23 AM Reporting Lab: [facility] [address] [facility] [address] Performing Lab: [facility] [address] [facility] [address] COVID-19 AG SCRN(wrj BINAX) POSITIVE HH NE G Dec 06, 2021 12:00 PM [facility] TROPONIN II Sp ecimen Type: PLASMA Comment: Tests performed on Pham Underwear Finisher (405) SN:[id number] Ordering Provid er: JELANI SÁNCHEZ Report Released Date/Time: Dec 06, 2021 11:57 AM Reporting Lab: [facility] [address] [place] [facility] [place] [address] Performing Lab: [facility] [address] [facility] [address] TROPONIN II 0.03 0.00-0.29 Dec 06, 2021 12:00 PM [facility] LIVER PROFILE Sp ecimen Type: PLASMA Comment: Testin g Performed on [employer]wear Finisher (405) SN:[id number] Ordering Provid er: JELANI SÁNCHEZ Report Released Date/Time: Dec 06, 2021 11:57 AM Reporting Lab: [facility] [address] [facility] [address] Performing Lab: [facility] [address] [facility] [address] PROTEIN, TOTAL 6.6 6.0-8.5 ALBUMIN 2.8 L 3.2-5.0 BILIRUBIN, TOTAL 0.6 0.2-1.2 ALKALINE PHOSPHATASE 134 40-150 ALT(SGPT) 13 7-52 AST(SGOT) 18 5-34 FIB-4 SCORE 1.94 <2.67 Dec 06, 2021 [place] P4 GLU,BUN,CREAT,LYTES,CA Speci men Type: PLASMA 12:00 PM [facility] Comment: Testin g Performed on Pham Underwear Finisher (405) SN:[id number] Ordering Provid er: JELANI SÁNCHEZ Report Released Date/Time: Dec 06, 2021 11:57 AM Reporting Lab: [place] [facility] [address] [facility] [address] Performing Lab: [place] [facility] [address] [facility] [address] UREA NITROGEN 13 7-25 SODIUM 138 135-145 POTASSIUM 3.8 3.5-5.0 CHLORIDE 103 100-110 CARBON DIOXIDE 23 20-30 ANION GAP 12 4-16 GLUCOSE 105 H 65-100 CREATININE 0.90 0.5-1.5 CALCIUM 8.7 8.5-10.5 eGFR(CKD-EPI 2020) >90.0 >60 Dec 06, 2021 12:00 PM [facility] BNP(P) Sp ecimen Type: PLASMA Comment: Tests performed on Pham Underwear Finisher (405) SN:[id number] Ordering Provid er: JELANI SÁNCHEZ Report Released Date/Time: Dec 06, 2021 11:57 AM Reporting Lab: [place] [facility] [address] [facility] [address] Performing Lab: [place] [facility] [address] [facility] [address] BNP(P) 224.8 H 10-100 Dec 06, 2021 [place] COVID-19+FLU/RSV DIAGNOSTIC Spe cimen Type: NASOPHARYNX 12:00 PM [facility] PANEL(405) Comment: Tests performed on Relevant Mediaxpert (405) Critical results called to and read back by: ALESHIA WILKINSON RN 12/06/21 @ 1312 Ordering Provid er: JELANI SÁNCHEZ Report Released Date/Time: Dec 06, 2021 11:57 AM Reporting Lab: [facility] [address] [facility] [facility] [address] Performing Lab: [place] [facility] [address] [facility] [address] FLU A(PCR) NEGATIVE NEGATIVE FLU B(PCR) NEGATIVE NEGATIVE RSV(PCR) NEGATIVE NEGATIVE COVID-19(LCU-bra-MSZNIWWGI) DETECTED HH NO T DETECTED Dec 06, 2021 12:00 [facility] Sp ecimen Type: BLOOD No comment enter ed. Ordering Provid er: JELANI SÁNCHEZ Report Released Date/Time: Dec 06, 2021 11:57 AM Reporting Lab: [facility] [address] [facility] [facility] [address] Performing Lab: [facility] [address] [facility] [facility] [address] WBC 7.2 4.5-11.0 RBC 4.86 4.23-5.66 HGB [...] 2021 07:43 /min mm[Hg] [facility] PM [facility] Dec 12, 0 WHITE 2021 07:37 RIVER PM [place] [facility] Dec 12, 0 WHITE 2021 02:17 RIVER PM [facility] Dec 12, 98 F 82 127/76 18 /min 97 % WHITE 2021 02:01 /min mm[Hg] RIVER PM T [facility] Dec 12, 0 2021 10:59 RIVER AM [facility] Social History: Smoking Status (Most current) [...] USE > 7 YEARS AGO [facility] Tobacco Use History This section includes a history of the smoking, or tobacco- related health factors, that were collected on or before the date of the Encounter. The data comes from the [place] facility where the Encounter took place. Date/Time Smoking Status/Tobacco Use Comment [facility] Apr 01, 2020 01:16 PM QUIT TOBACCO USE 1-7 YEARS AGO [facility] Mar 24, 2020 03:00 PM QUIT TOBACCO USE [facility] Feb 21, 2019 04:11 PM QUIT TOBACCO USE 1-7 YEARS AGO [facility] Feb 20, 2019 03:38 PM QUIT TOBACCO USE 1-7 YEARS AGO [facility] Feb 03, 2019 09:50 AM QUIT TOBACCO USE 1-7 YEARS AGO [facility] May 25, 2016 11:53 PM QUIT TOBACCO USE [facility]ST [facility] May 23, 2016 06:57 PM QUIT TOBACCO USE > 7 YEARS AGO [place] [facility] May 19, 2016 03:55 PM QUIT TOBACCO USE IN PAST YEAR [facility] May 19, 2016 10:29 AM QUIT TOBACCO USE 1-7 YEARS AGO [facility] May 01, 2016 07:26 PM QUIT TOBACCO USE IN PAST YEAR [facility] May 01, 2016 03:11 PM QUIT TOBACCO USE IN PAST YEAR CAREY DOYLE [facility] May 01, 2016 11:19 AM QUIT TOBACCO USE IN PAST YEAR CAREY DOYLE [facility] Mar 16, 2016 12:50 PM V1-PT DECLINES REF TO TOBACCO CAREY DOYLE [facility] CESS PRGM Mar 16, 2016 12:50 PM V1-PT THINKING ABOUT QUIT CAREY DOYLE [facility] TOBACCO USE Aug 12, 2015 08:48 AM CURRENT SMOKER CAREY Yates [facility] Radiology Reports: +/- 30 days of [...] comes from all [place] treatment facilities. Date/Time Radiology Report Provider Source Dec 13, 2021 12:57 PM MRI ABDOMEN W/WO CONTRAST: MARYELLEN LONG LUCAS LARES N [id number] -1950 [facility] Exm Date: DEC 13, 2021@12:57 Req Phys: ISATU TODD Loc: OP Unknown/0 12-15-2021@13:20 Img Loc: MRI IMAGING (OOS) Service: ZZGENERAL MEDICINE (Case [id number] COMPLETE) MRI ABDOMEN W/WO CONTRAST (M RI Detailed) CPT:43607 Reason for Study: further characterization of a [...] new lyphadenopathy REQUESTING MD: Isatu Todd PAGER: [phone] PHONE: [phone] Weight: 232.2 lb [105.32 kg] (12/12/2021 05:00) [...] will need to arrange for a dedicated 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 to take him/her home after [...] 15, 2021 Date Verified: DEC 15, 2021 Rivet Thrower E-Sig:/ES/MARYELLEN LONG Report: MRI ABDOMEN W/WO CONTRAST [...] MALIGNANCY Primary Interpreting Staff: MARYELLEN LONG Staff (Rivet Thrower) / Dec 10, 2021 09:[address] ABDOMEN & PELVIS: [facility] BEN[facility] MEEKL[facility] N [id number] -1950 [facility] Ex Date: DEC 10, 2021@09:30 Req Phys: ISATU TODD Loc: 1S MED/12-10@10:57 Img Loc: CT SCAN (OOS) Service: [facility] MEDICINE (Case [id number] COMPLETE) CT ABD & PELVIS WITHOUT CONT RAST (CT Detailed) CPT:75437 Reason for Study: 71 yo male with [...] INDEX - NO HEIGHTS FOUND Pager number: [phone] STAT orders MUST be call ed to RADIOLOGY [phone] to speak to the appropriate cinetechnician. Report Status: Verified Date Reported: DEC 10, 2021 Date Verified: DEC 10, 2021 Rivet Thrower E-Sig: Report: EXAM: CT abdomen and pelvis [...] ph nodes. READING PHYSICIAN: Ramone Munoz D.O. [phone] 12/10/2021 10:55 EDT [facility] National Teleradiology Program [phone] (For Medical Practitioner Use Only ) [address] [facility] [address], [address] [place] [address] Attention Patients / Veterans: If you have ques tions or concerns about these test results, please contact your o rdering provider or primary care team. Primary Diagnostic Code: SIGNIFICANT ABNORMALIT Y, ATTN NEEDED Primary Interpreting Staff: RADIOLOGY,OUTSIDE SERVICE, Staff Physician / Dec 09, 2021 07:34 AM BASW (MODIFIED): JESSIE CHENEY TARA ER JCLUCAS LARES N [id number] -1950 [facility] Exm Date: DEC 09, 2021@07:34 Req Phys: PEYTONISATU Manjarrez Loc: 1S MED/12-09@11:26 Img Loc: XRAY (OOS) Service: [facility] MEDICINE (Case [id number] COMPLETE) BASW (MODIFIED) (RAD Detaile d) CPT:72889 Contrast Media : Barium Reason for Study: dysphagia ?esophageal spasm Clinical History: Report Status: Verified Date Reported: DEC 09, 2021 Date Verified: DEC 09, 2021 Rivet Thrower E-Sig:/ES/JESSIE CHENEY Report: BASW (MODIFIED) , 12/09/2021 [...] REQUIRED Primary Interpreting Staff: JESSIE CHENEY, RADIOLOGIST (Rivet Thrower) /TLC Dec 06, 2021 12:[address] CHEST (INCLUDES ADRENALS): JESSIE CHENEY LUCAS LARES N [id number] -1950 [facility] Exm Date: DEC 06, 2021@12:59 Req Phys: JELANI SÁNCHEZ Pat Loc: [facility] ED DAYS M 1RD (Req'g Loc) Img Loc: CT SCAN (OOS) Service: Unknown (Case [id number] COMPLETE) CT THORAX W/O CONT (CT Detai led) CPT:20574 Reason for Study: Opacification right chest Clinical History: No contrast allergy BUN: 13 (12/06/21 12:00) CREATI: 0.90 (12/06/21 12:00) eGFR 05/16/21 09:43 52 L Weight: 232.6 lb [105.51 kg] (12/06/2021 11:40) BODY MASS INDEX - NO HEIGHTS FOUND Pager number: [phone] STAT orders MUST be called t o RADIOLOGY [phone] to speak to the appropriate cinetechnician. Indications - Other: Opacification right chest, covid positive, lung cancer histo Report Status: Verified Date Reported: DEC 06, 2021 Date Verified: DEC 06, 2021 Rivet Thrower E-Sig:/ES/JESSIE CHENEY Report: CT THORAX W/O CONT [...] REQUIRED Primary Interpreting Staff: JESSIE CHENEY, RADIOLOGIST (Rivet Thrower) Primary Interpreting Resident: PRINCE CHAMPION, Resident /BR Dec 06, 2021 11:58 AM CHEST SINGLE VIEW: JESSIE CHENEY DOUGLAS N [id number] -1950 [facility] Exm Date: DEC 06, 2021@11:58 Req Phys: GONZALO,JELANI Link Pat Loc: [facility] ED DAYS M 1RD (Req'g Loc) Img Loc: XRAY (OOS) Service: Unknown (Case [id number] COMPLETE) CHEST SINGLE VIEW (RAD Detai led) CPT:88878 Proc Modifiers : PORTABLE EXAM Reason for Study: SOB, home covid test positive Clinical History: Report Status: Verified Date Reported: DEC 06, 2021 Date Verified: DEC 06, 2021 Rivet Thrower E-Sig:/ES/JESSIE CHENEY Report: Exam type: Chest x-ray [...] REQUIRED Primary Interpreting Staff: JESSIE CHENEY, RADIOLOGIST (Rivet Thrower) /TLC Pathology Reports: +/- 30 days of [...] MILLER LOCAL TITLE: LR SURGICAL PATHOLOGY REPORT [facility] STANDARD TITLE: PATHOLOGY REPORT DATE OF NOTE: JAN 03, 2022@10:28:01 ENTRY DATE: JAN 03, 2022@10:28:01 AUTHOR: NIURKA MILLER EXP COSIGNER: URGENCY: STATUS: COMPLETED $APHDR Reporting Lab: C[facility]Y MONTOYA [facility] [CLIA# [id number]] [address] [place] [address] - - - - - - [...] automatically d ocumented from SURGERY package case #[id number] Field (#32) PRINCIPAL PRE-OP DIAGNOSIS, (#.72) OTHER [...] automatically d ocumented from SURGERY package case #[id number] Field (#34) PRINCIPAL POST-OP DIAG, (#.74) OTHER [...] Label: Lucas Meek Paperwork: Lucas Meek Cassette: [id number];..;KALYANI;.;405;[id number] Specimen is labeled: ES bx Received in formalin are several pieces of pale boyd and brown tissue, 1.2 x 0.7 cm in aggregate. Submitted entirely in 1 cassette [id number];..;KALYANI;.;405;[id number] SAW 12/15/2021 Microscopic exam: *+* MODIFIED REPORT *+* (Last modified: JAN 03, 2022@09:30:20 typed by NIURKA WADDELL) DIAGNOSIS: A. 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 Kendell long. TIARA Coombs was notified on 12/21/21. Modified on 01/03/22 to include report from [facility] stating that tumor is NEGATIVE for her2/ matheus amplification. The attending pathologist who signature mansoor ears on this report has reviewed all diagnostic slides and has edited t he gross and/or microscopic portion of this report in rendering the final pathologic diagnosis. [address] [address] CPT: 56406 /emely/ NIURKA Yeung MD Signed Jan 03, 2022@10:28 Performing Laboratory: Surgical Pathology Report Performed By: CAREY DOYLE [facility] [CLIA# [id number]] [address] [place] [address] $FTR - - - - - [...] - - LUCAS MEEK STANDARD FORM 515 ID:[id number] SEX:M :1950 AGE: 71 LOC: SDM END PCP: Isatu Todd /emely/ NIURKA MILLER Staff Signed: 01/03/2022 10:28 Dec 21, 2021 11:46 AM LR SURGICAL PATHOLOGY REPORT: STEFANY MILLER [facility] LOCAL TITLE: LR SURGICAL PATHOLOGY REPORT [facility] STANDARD TITLE: PATHOLOGY REPORT DATE OF NOTE: DEC 21, 2021@11:46:59 ENTRY DATE: DEC 21, 2021@11:46:59 AUTHOR: NIURKA MILLER EXP COSIGNER: URGENCY: STATUS: COMPLETED $APHDR Reporting Lab: [facility] [CLIA# [id number]] [address] [place] [address] - - - - - - [...] automatically d ocumented from SURGERY package case #[id number] Field (#32) PRINCIPAL PRE-OP DIAGNOSIS, (#.72) OTHER [...] automatically d ocumented from SURGERY package case #[id number] Field (#34) PRINCIPAL POST-OP DIAG, (#.74) OTHER [...] Label: Lucas Meek Paperwork: Lucas Meek Cassette: [id number];..;KALYANI;.;405;[id number] Specimen is labeled: ES bx Received in formalin are several pieces of pale boyd and brown tissue, 1.2 x 0.7 cm in aggregate. Submitted entirely in 1 cassette [id number];..;KALYANI;.;405;[id number] SAW 12/15/2021 Microscopic exam: DIAGNOSIS: A. 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 Kendell long. TIARA Coombs was notified on 12/21/21. The attending pathologist who signature mansoor ears on this report has reviewed all diagnostic slides and has edited t he gross and/or microscopic portion of this report in rendering the final pathologic diagnosis. [address] [address] CPT: 71876 /emely/ NIURKA Yeung MD Signed Dec 21, 2021@11:46 Performing Laboratory: Surgical Pathology Report Performed By: [facility] [CLIA# [id number]] [address] [place] [address] $FTR - - - - - [...] - - LUCAS MEEK STANDARD FORM 515 ID:[id number] SEX:M :1950 AGE: 71 LOC: SDM END PCP: Isatu Todd /charmaine Yeung MD Signed: 12/21/2021 11:46 Dec 06, 2021 03:30 PM LR MICROBIOLOGY REPORT: [facility] Reporting Lab: [facility] [CLIA# [id number]] [address] [place] [address] Accession [UID]: [id number] [[id number]] Receiv ed: Dec 06, 2021@16:14 Collection sample: BLOOD CUL T BOTTLE(NIRMAL/AERO)Collection date: Dec 06, 2021 15:30 Site/Specimen: BLOOD Provider: JELANI SÁNCHEZ Comment on specimen: LAC Test(s) ordered: BLOOD CULTURE ANAEROBI C....... completed: Dec 12, 2021 06:18 * BACTERIOLOGY FINAL REPORT => Dec 12, 2021 06:1 8 TECH CODE: 99014 Bacteriology Remark(s): NO GROWTH IN 5 DAYS =--=--=--=--=--=--=--=--=--=--=--=--=--= --=--=--=--=--=--=--=--=--=--=--=--=-- Performing Laboratory: Bacteriology Report Performed By: [facility] [CLIA# [id number]] [address] [place] [address] Dec 06, 2021 03:30 PM LR MICROBIOLOGY REPORT: [facility] Reporting Lab: [facility] [CLIA# [id number]] [address] [place] [address] Accession [UID]: [id number] [[id number]] Receiv ed: Dec 06, 2021@16:14 Collection sample: BLOOD CUL T BOTTLE(NIRMAL/AERO)Collection date: Dec 06, 2021 15:30 Site/Specimen: BLOOD Provider: JELANI SÁNCHEZ Comment on specimen: LAC Test(s) ordered: BLOOD CULTURE AEROBIC. ........ completed: Dec 12, 2021 06:17 * BACTERIOLOGY FINAL REPORT => Dec 12, 2021 06:1 7 TECH CODE: 29157 Bacteriology Remark(s): NO GROWTH IN 5 DAYS =--=--=--=--=--=--=--=--=--=--=--=--=--= --=--=--=--=--=--=--=--=--=--=--=--=-- Performing Laboratory: Bacteriology Report Performed By: [facility] [CLIA# [id number]] [address] [place] [address]
--- OUTSIDE RECORDS SUMMARY | 2022-01-19 08:39 | XMS_ITS ---
DAILY HOSPITALIZATION DATA [facility] Encounter Summary Created on:December 12, 2021 Patient:LUCAS MEEK Sex:Male :1950 Author Organization [facility] Address [address] [place] [id number] Support Name Relationship Address Phone YUSRA MEEK Unavailable [address] [place] [facility] [address] YUSRA MEEK Unavailable [address] [place] [address] CLAY MOSLEY Unavailable Unavailable SJ SANTACRUZ Unavailable [...] MEDICARE MEDICARE PART Jun 18, PART A [id number] KALYANI PATIENT (WNR) (M) A 2016 13A 1 UGLAS MEDICARE MEDICARE PART Jun 18, PART A [id number] MEEK DO PATIENT (WNR) (M) A 2017 VH81 2 [place]AS MEDICARE MEDICARE PART Jun 18, PART B [id number] KALYANIDO PATIENT (WNR) (M) B 2017 VH81 2 [place]AS MEDICARE MEDICARE PART Jun 18, PART B [id number] DO KALYANI PATIENT (WNR) (M) B 2016 13A 1 [place] UNITED MEDICARE MCR(Jun 18 [id number] Luz MEEK PATIENT HEALTHCARE ADVANTAGE NR) 2021 37 0 UGLAS MCR (WNR) Selected Encounter This section includes the information on record at [place] for the Encounter. Date/Time Encounter Type Encounter Description Reason Provider Source Dec 12, 2021 05:36 Inpatient Visit DAILY HOSPITALIZATION DATA PM E Encounter Template Text not used by [place] [...] AMBULATORY - NONE [place] [facility] Jan 06, 2022 02:00 PM [place] [facility] Jan 10, 2022 11:30 AM AMBULATORY - MEDICINE [facility] Jan 24, 2022 08:00 AM [place] [facility] Feb 21, 2022 10:00 AM [place] [facility] Mar 21, 2022 10:30 AM [...] the Encounter. The data comes from all [place] treatment [facility]. Test Date/Time Test Type Test Details Facility Name October 31, 2021 07:37 AM Consult Order COMMUNITY CARE-EGD [facility] Cons School Age Teacher's Choice November 15, 2021 10:37 AM Consult Order [facility] CARE-PODIATRY Cons School Age Teacher's Choice Dec 06, 2021 12:52 PM Pharmacy [place] Infusion Order [facility] Dec 06, 2021 03:24 PM Pharmacy [place] Order [facility] Dec 06, 2021 03:40 PM [place]acy [place] Order [facility] Dec 15, 2021 08:41 AM Consult Order SPEECH PATHOLOGY [place] OUTPATIENT Cons [facility] School Age Teacher's Choice Jan 15, 2022 10:08 PM Consult Order [facility] CARE-PALLIATIVE CARE Cons School Age Teacher's Choice Lab Results: +/- 30 days [...] Reference Range Comment Dec 15, 2021 [place] P4 GLU,BUN,CREAT,LYTES,CA Speci men Type: PLASMA 06:43 AM [facility] Comment: Tests performed on Deep Driver (405) SN:[id number] Ordering Provid er: ISATU TODD Report Released Date/Time: Dec 11, 2021 07:42 AM Reporting Lab: [facility] [address] [facility] [address] Performing Lab: [facility] [address] [facility] [address] UREA NITROGEN 9 7-25 SODIUM 137 135-145 POTASSIUM 3.8 3.5-5.0 CHLORIDE 105 100-110 CARBON DIOXIDE 26 20-30 ANION GAP 6 4-16 GLUCOSE 102 H 65-100 CREATININE 0.64 0.5-1.5 CALCIUM 8.1 L 8.5-10.5 eGFR(CKD-EPI 2020) >90.0 >60 Dec 15, 2021 06:43 AM [facility] CBC PROFILE Sp ecimen Type: BLOOD No comment enter ed. Ordering Provid er: ISATU TODD Report Released Date/Time: Dec 10, 2021 07:22 AM Reporting Lab: [facility] [address] [facility] [address] Performing Lab: [facility] [address] [facility] [address] WBC 5.7 4.5-11.0 RBC 4.22 L 4.23-5.66 [...] Specimen Type: ESOPHAGUS 02:59 PM [facility] Comment: ~For T est: [place]TOGENETIC FISH[place] ~FISH HER 2 NUE, FFPE See full report in [employer] Image display viewer/tab#LAB-Reference Ordering Provid er: NIURKA MILLER Report Released Date/Time: Dec 21, 2021 12:11 PM Reporting Lab: [facility] [address] [facility] [address] Performing Lab: [facility] CYTOGENETIC FISH[place] comment Dec 14, 2021 [facility] P4 GLU,BUN,CREAT,LYTES,CA Speci men Type: PLASMA 06:27 AM [facility] Comment: Tests performed on Deep Driver (405) SN:[id number] Ordering Provid er: ISATU TODD Report Released Date/Time: Dec 11, 2021 07:42 AM Reporting Lab: [facility] [address] [facility] [address] Performing Lab: [facility] [address] [facility] [address] UREA NITROGEN 10 7-25 SODIUM 137 135-145 POTASSIUM 4.0 3.5-5.0 CHLORIDE 104 100-110 CARBON DIOXIDE 25 20-30 ANION GAP 8 4-16 GLUCOSE 99 65-100 CREATININE 0.67 0.5-1.5 CALCIUM 8.2 L 8.5-10.5 eGFR(CKD-EPI 2020) >90.0 >60 Dec 14, 2021 06:27 AM [facility] CBC PROFILE Sp ecimen Type: BLOOD No comment enter ed. Ordering Provid er: ISATU TODD Report Released Date/Time: Dec 10, 2021 07:22 AM Reporting Lab: [facility] [address] [facility] [address] Performing Lab: [facility] [address] [facility] [address] WBC 6.0 4.5-11.0 RBC 4.29 4.23-5.66 HGB [...] GLU,BUN,CREAT,LYTES,CA Speci men Type: PLASMA 06:34 AM [facility] Comment: Tests performed on Deep Driver (405) SN:[id number] Ordering Provid er: ISATU TODD Report Released Date/Time: Dec 11, 2021 07:42 AM Reporting Lab: [facility] [address] [facility] [address] Performing Lab: [facility] [address] [facility] [address] UREA NITROGEN 12 7-25 SODIUM 136 135-145 POTASSIUM 3.9 3.5-5.0 CHLORIDE 105 100-110 CARBON DIOXIDE 24 20-30 ANION GAP 7 4-16 GLUCOSE 102 H 65-100 CREATININE 0.66 0.5-1.5 CALCIUM 8.3 L 8.5-10.5 eGFR(CKD-EPI 2020) >90.0 >60 Dec 13, 2021 06:34 AM [facility] CBC PROFILE Sp ecimen Type: BLOOD No comment enter ed. Ordering Provid er: ISATU TODD Report Released Date/Time: Dec 10, 2021 07:22 AM Reporting Lab: [facility] [address] [facility] [address] Performing Lab: [facility] [address] [facility] [address] WBC 5.6 4.5-11.0 RBC 4.28 4.23-5.66 HGB [...] ABSOLUTE NRBC 0.00 0-0 Dec 12, 2021 06:[address] [facility] CBC PROFILE Sp ecimen Type: BLOOD No comment enter ed. Ordering Provid er: ISATU TODD Report Released Date/Time: Dec 10, 2021 07:22 AM Reporting Lab: [facility] [address] [facility] [address] Performing Lab: [facility] [address] [facility] [address] WBC 5.5 4.5-11.0 RBC 4.37 4.23-5.66 HGB [...] 0-0 Dec 12, [address] [facility] [address] [facility] GLU,BUN,CREAT,LYTES,CA Speci men Type: PLASMA 06:21 AM [facility] Comment: Tests performed on Deep Driver (696) SN:[id number] Ordering Provid er: ISATU TODD Report Released Date/Time: Dec 11, 2021 07:42 AM Reporting Lab: [facility] [address] [facility] [address] Performing Lab: [facility] [address] [facility] [address] UREA NITROGEN 11 7-25 SODIUM 139 135-145 POTASSIUM 4.1 3.5-5.0 CHLORIDE 107 100-110 CARBON DIOXIDE 24 20-30 ANION GAP 8 4-16 GLUCOSE 110 H 65-100 CREATININE 0.70 0.5-1.5 CALCIUM 8.3 L 8.5-10.5 eGFR(CKD-EPI 2020) >90.0 >60 Dec 12, 2021 06:00 AM [place] [facility] MAGNESIUM Sp ecimen Type: PLASMA Comment: Testin g Performed on Deep Driver (405) SN:[id number] Ordering Provid er: ISATU TODD Report Released Date/Time: Dec 12, 2021 08:24 AM Reporting Lab: [place] [facility] [address] [facility] [address] Performing Lab: [place] [facility] [address] [facility] [address] MAGNESIUM 1.8 1.6-2.6 Dec 12, 2021 06:00 AM [place] [facility] [facility] PHOSPHORUS Sp ecimen Type: PLASMA Comment: Testin g Performed on Deep Driver (405) SN:[id number] Ordering Provid er: ISATU TODD Report Released Date/Time: Dec 12, 2021 08:24 AM Reporting Lab: [place] [facility] [address] [facility] [address] Performing Lab: [place] [facility] [address] [facility] [address] PHOSPHORUS 3.1 2.5-5.0 Dec 11, 2021 06:15 AM [place] [facility] ELECTROLYTES Sp ecimen Type: PLASMA Comment: Tests performed on Deep Driver (405) SN:[id number] Ordering Provid er: ISATU TODD Report Released Date/Time: Dec 10, 2021 07:22 AM Reporting Lab: [place] [facility] [address] [facility] [address] Performing Lab: [place] [facility] [address] [facility] [address] SODIUM 137 135-145 POTASSIUM 4.3 3.5-5.0 CHLORIDE 108 100-110 CARBON DIOXIDE 20 20-30 ANION GAP 9 4-16 Dec 11, 2021 06:15 AM [place] [facility] [facility] CBC PROFILE Sp ecimen Type: BLOOD Comment: Result s checked Ordering Provid er: ISATU TODD Report Released Date/Time: Dec 10, 2021 07:22 AM Reporting Lab: [place] [facility] [facility] [address] [facility] [address] Performing Lab: [place] [facility] [facility] [address] [facility] [address] WBC 5.8 4.5-11.0 RBC 4.37 4.23-5.66 HGB [...] ecimen Type: PLASMA Comment: Tests performed on Deep Driver (146) SN:[id number] Results checked Ordering Provid er: ISATU TODD Report Released Date/Time: Dec 11, 2021 07:44 AM Reporting Lab: [facility] [place] [facility] [address] [facility] [address] Performing Lab: [place] [facility] [address] [facility] [address] PHOSPHORUS 3.0 2.5-5.0 Dec 10, 2021 08:05 AM [place] [facility] MAGNESIUM Sp ecimen Type: PLASMA Comment: [place] [id number] on Dec 10, 2021@08:31 Tests performed on Deep Driver (405) SN:[id number] Ordering Provid er: ISATU TODD Report Released Date/Time: Dec 10, 2021 07:22 AM Reporting Lab: [place] [facility] [address] [place] [facility] [place] [address] Performing Lab: [place] [facility] [address] [place] [facility] [place] [address] MAGNESIUM 1.7 1.6-2.6 Dec 10, 2021 08:05 AM [place] [facility] PHOSPHORUS Sp ecimen Type: PLASMA Comment: [place] [id number] on Dec 10, 2021@08:31 Tests performed on Deep Driver (405) SN:[id number] Ordering Provid er: ISATU TODD Report Released Date/Time: Dec 10, 2021 07:22 AM Reporting Lab: [place] [facility] [address] [place] [facility] [place] [address] Performing Lab: [place] [facility] [address] [place] [facility] [place] [address] PHOSPHORUS 1.8 L 2.5-5.0 Dec 10, 2021 08:05 AM [place] UREA NITROGEN Specimen Type: PLASMA [facility] Comment: [place] [id number] on Dec 10, 2021@08:31 Tests performed on Deep Driver (405) SN:[id number] Ordering Provid er: ISATU TODD Report Released Date/Time: Dec 10, 2021 07:22 AM Reporting Lab: [place] [facility] [address] [place] [facility] [place] [address] Performing Lab: [place] [facility] [address] [place] [facility] [place] [address] UREA NITROGEN 8 7-25 Dec 10, 2021 08:05 AM [place] [facility] ELECTROLYTES Sp ecimen Type: PLASMA Comment: [place] [id number] on Dec 10, 2021@08:31 Tests performed on Deep Driver (405) SN:[id number] Ordering Provid er: ISATU TODD Report Released Date/Time: Dec 10, 2021 07:22 AM Reporting Lab: [place] [facility] [address] [facility] [address] Performing Lab: [place] [facility] [address] [facility] SODIUM 139 135-145 POTASSIUM 3.7 3.5-5.0 CHLORIDE 107 100-110 CARBON DIOXIDE 24 20-30 ANION GAP 8 4-16 Dec 10, 2021 08:05 AM [place] [facility] CALCIUM Sp ecimen Type: PLASMA Comment: [place] [id number] on Dec 10, 2021@08:31 Tests performed on Deep Driver (405) SN:[id number] Ordering Provid er: ISATU TODD Report Released Date/Time: Dec 10, 2021 07:22 AM Reporting Lab: [place] [facility] [address] [facility] Performing Lab: [place] [facility] [address] [facility] CALCIUM 8.3 L 8.5-10.5 Dec 10, 2021 08:05 AM [place] [facility] CBC PROFILE Sp ecimen Type: BLOOD No comment enter ed. Ordering Provid er: ISATU TODD Report Released Date/Time: Dec 10, 2021 07:22 AM Reporting Lab: [place] [facility] [address] [facility] [address] Performing Lab: [place] [facility] [facility] [address] [facility] WBC 7.0 4.5-11.0 RBC 4.54 [...] PLASMA AM [facility] PANEL Comment: [place] [id number] on Dec 10, 2021@08:31 Tests performed on [employer] (405) SN:[id number] Ordering Provid er: ISATU TODD Report Released Date/Time: Dec 10, 2021 07:22 AM Reporting Lab: [place] [facility] [address] [facility] [address] Performing Lab: [place] [facility] [address] [facility] [address] CREATININE 0.78 0.5-1.5 eGFR(CKD-EPI 2020) >90.0 >60 Dec 10, 2021 08:05 AM [place] [facility] GLUCOSE Sp ecimen Type: PLASMA Comment: [place] [id number] on Dec 10, 2021@08:31 Tests performed on Deep Driver (405) SN:[id number] Ordering Provid er: ISATU TODD Report Released Date/Time: Dec 10, 2021 07:22 AM Reporting Lab: [place] [facility] [address] [facility] [address] Performing Lab: [place] [facility] [address] [place] [facility] [place] [address] GLUCOSE 144 H 65-100 Dec 09, 2021 06:46 AM [place] [facility] MAGNESIUM Sp ecimen Type: PLASMA Comment: Tests performed on Deep Driver (405) SN:[id number] Ordering Provid er: ISATU TODD Report Released Date/Time: Dec 08, 2021 10:23 AM Reporting Lab: [place] [facility] [address] [facility] [address] Performing Lab: [place] [facility] [address] [facility] [address] MAGNESIUM 1.6 1.6-2.6 Dec 09, 2021 [facility] P4 GLU,BUN,CREAT,LYTES,CA Speci men Type: PLASMA 06:46 AM [facility] Comment: Tests performed on Deep Driver (405) SN:[id number] Ordering Provid er: ISATU TODD Report Released Date/Time: Dec 08, 2021 05:00 PM Reporting Lab: [facility] [address] [facility] [address] Performing Lab: [facility] [address] [facility] [address] UREA NITROGEN 6 L 7-25 SODIUM 134 L 135-145 POTASSIUM 3.7 3.5-5.0 CHLORIDE 103 100-110 CARBON DIOXIDE 23 20-30 ANION GAP 8 4-16 GLUCOSE 112 H 65-100 CREATININE 0.70 0.5-1.5 CALCIUM 8.1 L 8.5-10.5 eGFR(CKD-EPI 2020) >90.0 >60 Dec 09, 2021 06:46 AM [facility] CBC PROFILE Sp ecimen Type: BLOOD No comment enter ed. Ordering Provid er: ISATU TODD Report Released Date/Time: Dec 08, 2021 05:00 PM Reporting Lab: [facility] [address] [facility] [address] Performing Lab: [facility] [address] [facility] [address] WBC 7.1 4.5-11.0 RBC 4.40 4.23-5.66 HGB [...] 0.00 0-0 Dec 08, 2021 06:39 AM [place] [employer] T [facility] MAGNESIUM Sp ecimen Type: PLASMA Comment: Testin g Performed on Deep Driver (405) SN:[id number] Ordering Provid er: ISATU TODD Report Released Date/Time: Dec 07, 2021 10:32 AM Reporting [facility] [address] [facility] [address] [facility]forming Lab: [facility] [address] [facility] [address] MAGNESIUM 1.5 L 1.6-2.6 Dec 08, 2021 [place] [employer] T P4 GLU,BUN,CREAT,LYTES,CA Speci men Type: PLASMA 06:39 AM [facility] Comment: Testin g Performed on Deep Driver (405) SN:[id number] Ordering Provid er: ISATU TODD Report Released Date/Time: Dec 07, 2021 10:32 AM Reporting Lab: [place] T [facility] [address] [facility] [address] Performing Lab: [facility] [address] [facility] [address] UREA NITROGEN 6 L 7-25 SODIUM 136 135-145 POTASSIUM 3.3 L 3.5-5.0 CHLORIDE 104 100-110 CARBON DIOXIDE 22 20-30 ANION GAP 10 4-16 GLUCOSE 133 H 65-100 CREATININE 0.76 0.5-1.5 CALCIUM 8.4 L 8.5-10.5 eGFR(CKD-EPI 2020) >90.0 >60 Dec 08, 2021 06:39 AM [place] [employer] [facility] CBC PROFILE Sp ecimen Type: BLOOD No comment enter ed. Ordering Provid er: ISATU TODD Report Released Date/Time: Dec 07, 2021 10:32 AM Reporting Lab: [facility] [address] [facility] [address] Performing Lab: [facility] [address] [facility] WBC 8.4 4.5-11.0 RBC 4.75 [...] LIVER PROFILE Specimen Typ e: PLASMA AM [facility] Comment: Tests performed on Deep Driver (405 SN:[id number] Ordering Provid er: PORFIRIO WALTERS Report Released Date/Time: Dec 06, 2021 06:57 PM Reporting Lab: [facility] [address] [facility] [address] Performing Lab: [facility] [address] [facility] [address] PROTEIN, TOTAL 5.7 L 6.0-8.5 ALBUMIN 2.4 L 3.2-5.0 BILIRUBIN, TOTAL 0.4 0.2-1.2 ALKALINE PHOSPHATASE 109 40-150 ALT(SGPT) 10 7-52 AST(SGOT) 15 5-34 FIB-4 SCORE 1.92 <2.67 Dec 07, [address] [facility] [facility] P[facility] GLU,BUN,CREAT,LYTES,CA Speci men Type: PLASMA 06:42 AM [facility] Comment: Tests performed on Deep Driver (405) SN:[id number] Ordering Provid er: PORFIRIO WALTERS Report Released Date/Time: Dec 06, 2021 06:57 PM Reporting Lab: [place] [facility] [address] [facility] [address] Performing Lab: [place] [facility] [address] [facility] [address] UREA NITROGEN 9 7-25 SODIUM 135 135-145 POTASSIUM 3.5 3.5-5.0 CHLORIDE 103 100-110 CARBON DIOXIDE 22 20-30 ANION GAP 10 4-16 GLUCOSE 92 65-100 CREATININE 0.73 0.5-1.5 CALCIUM 8.0 L 8.5-10.5 eGFR(CKD-EPI 2020) >90.0 >60 Dec 07, 2021 06:42 AM [place] CBC PROFILE Specimen Type: BLOOD [facility] No comment enter ed. Ordering Provid er: PORFIRIO WALTERS Report Released Date/Time: Dec 06, 2021 06:57 PM Reporting Lab: [place] [facility] [address] [facility] [address] [facility]forming Lab: [facility] [address] [facility] [address] WBC 5.7 4.5-11.0 RBC 4.15 L 4.23-5.66 [...] [facility] %) AUTOMATED Comment: Tests performed on Deep Driver (405) SN:[id number] Ordering Provid er: ISATU TODD Report Released Date/Time: Dec 07, 2021 10:28 AM Reporting Lab: [place] [facility] [address] [facility] [address] Performing Lab: [place] [facility] [address] [facility] [address] RETICULOCYTES (%) AUTOMATED 1.23 0. 6-2.0 RETICULOCYTES (ABS) AUTOMATED 0.052 0.030-0.090 Dec 06, 2021 09:45 [place] MRSA SURVL NARES Specimen Ty pe: NARES PM [facility] DNA No comment enter ed. Ordering Provid er: ALVARO VARGHESE Report Released Date/Time: Dec 07, 2021 02:20 AM Reporting Lab: [place] [facility] [address] [facility] [address] Performing Lab: [place] [facility] [address] [facility] [address] MRSA SURVL NARES DNA NEGATIVE NEGATIVE Dec 06, 2021 06:00 [place] URINALYSIS W/REFLEX TO Speci men Type: URINE PM [facility] CULTURE No comment enter ed. Ordering Provid er: JELANI SÁNCHEZ Report Released Date/Time: Dec 06, 2021 11:57 AM Reporting Lab: [place] [facility] [address] [facility] [address] Performing Lab: [place] [facility] [address] [facility] [address] URINE COLOR Arlin YELLOW SPECIFIC GRAVITY 1.029 [...] 21, [place]IANT Comment: https://www.cdc.gov/coronavirus/2019-ncov/cases-updates/variant- surveillance/variant-info.html The [place] SARS CoV 2 [employer] Assay-GX is a next-generation sequencing (NGS) assa 2021 [facility] SEQUENCING y that determine s the complete genome sequence of the SARS-CoV-2 virus. The assay contains variant-tolerant primers to broaden and improve the coverage for variant detection and increase the sensitivity 12:00 [facility] PNL(WH) of the panel to enable detection from lower viral titer samples. The assay is run on the [employer] Sequencer, which performs automated library preparation, sequencing, analysis, and reporting. PM The sequence an alysis includes determination of viral phylogenetic lineage by comparison to the reference strain Wu[place]-Hu-1, GenBank: [id number]. Sequence determination may not be possible owing [...] [facility] [address] [facility] [address] Performing Lab: [facility] [address] [facility] [address] SARS-CoV-2 CLADE() 22C (OMICRON) SARS-CoV-2 LINEAGE() BA.2.12.1 Dec 06, 2021 12:00 [facility] COVID-19 AG SCREEN Specimen Type: NASAL CAVITY PM [facility] PANEL BINAX(405) Comment: Testi ng Performed By: Mike Briscoe Ordering Provid er: JELANI SÁNCHEZ Report Released Date/Time: Dec 08, 2021 08:23 AM Reporting Lab: [facility] [address] [facility] [address] Performing Lab: [facility] [address] [facility] [address] COVID-19 AG SCRN(wrj BINAX) POSITIVE HH NE G Dec 06, [address] [facility] [facility] P4 GLU,BUN,CREAT,LYTES,CA Speci men Type: PLASMA 12:00 PM [facility] Comment: Testin g Performed on [employer] (405) SN:[id number] Ordering Provid er: JELANI SÁNCHEZ Report Released Date/Time: Dec 06, 2021 11:57 AM Reporting Lab: [facility] [address] [facility] [address] Performing Lab: [facility] [address] [facility] [address] UREA NITROGEN 13 7-25 SODIUM 138 135-145 POTASSIUM 3.8 3.5-5.0 CHLORIDE 103 100-110 CARBON DIOXIDE 23 20-30 ANION GAP 12 4-16 GLUCOSE 105 H 65-100 CREATININE 0.90 0.5-1.5 CALCIUM 8.7 8.5-10.5 eGFR(CKD-EPI 2020) >90.0 >60 Dec 06, 2021 12:[address] [facility] LIVER PROFILE Sp ecimen Type: PLASMA Comment: Testin g Performed on [employer] (405) SN:[id number] Ordering Provid er: JELANI SÁNCHEZ Report Released Date/Time: Dec 06, 2021 11:57 AM Reporting Lab: [place] [facility] [address] [facility] [address] Performing Lab: [facility] [address] [facility] [address] PROTEIN, TOTAL 6.6 6.0-8.5 ALBUMIN 2.8 L 3.2-5.0 BILIRUBIN, TOTAL 0.6 0.2-1.2 ALKALINE PHOSPHATASE 134 40-150 ALT(SGPT) 13 7-52 AST(SGOT) 18 5-34 FIB-4 SCORE 1.94 <2.67 Dec 06, 2021 12:[address] [facility] Sp ecimen Type: PLASMA Comment: Tests performed on Pham Lace Roller (405) [id number] Ordering Provid er: JELANI SÁNCHEZ Report Released Date/Time: Dec 06, 2021 11:57 AM Reporting Lab: [facility] [address] [facility] [address] Performing Lab: [facility] [address] [facility] [address] TROPONIN II 0.03 0.00-0.29 Dec 06, 2021 12:[address] [facility] BNP(P[facility] Sp ecimen Type: PLASMA Comment: Tests performed on Pham Lace Roller (405) [id number] Ordering Provid er: JELANI SÁNCHEZ Report Released Date/Time: Dec 06, 2021 11:57 AM Reporting Lab: [facility] [address] [facility] [address] Performing Lab: [facility] [address] [facility] [address] BNP(P) 224.8 H 10-100 Dec 06, 2021 [facility]+FLU/RSV DIAGNOSTIC Spe cimen Type: NASOPHARYNX 12:00 PM [facility] PANEL(405) Comment: Tests performed on Incu[employer] Genexpert (405) Critical results called to and read back by: ALESHIA WILKINSON RN 12/06/21 @ 1312 Ordering Provid er: JELANI SÁNCHEZ Report Released Date/Time: Dec 06, 2021 11:57 AM Reporting Lab: [facility] [address] [facility] [address] Performing Lab: [place] [facility] [address] [facility] [address] FLU A(PCR) NEGATIVE NEGATIVE FLU B(PCR) NEGATIVE NEGATIVE RSV(PCR) NEGATIVE NEGATIVE COVID-19([id number]) DETECTED HH NO T DETECTED Dec 06, 2021 12:00 PM [facility] Sp ecimen Type: BLOOD No comment enter ed. Ordering Provid er: JELANI SÁNCHEZ Report Released Date/Time: Dec 06, 2021 11:57 AM Reporting Lab: [facility] [address] [address] Performing Lab: [facility] [address] [address] WBC 7.2 4.5-11.0 RBC 4.86 4.23-5.66 HGB [...] 2021 07:43 /min mm[Hg] RIVER PM T [facility] Dec 12, 0 WHITE 2021 07:37 RIVER PM JCT [facility] Dec 12, 0 WHITE 2021 02:17 RIVER PM T [facility] Dec 12, 98 F 82 127/76 18 /min 97 % WHITE 2021 02:01 /min mm[Hg] RIVER PM T [facility] Dec 12, 0 2021 10:59 RIVER AM [facility] Social History: Smoking Status (Most current) [...] QUIT TOBACCO USE > 7 YEARS AGO [facility] Tobacco Use History This section includes a history of the smoking, or tobacco- related health factors, that were collected on or before the date of the Encounter. The data comes from the [place] facility where the Encounter took place. Date/Time Smoking Status/Tobacco Use Comment [facility] Apr 01, 2020 01:16 PM QUIT TOBACCO USE 1-7 YEARS AGO [facility] Mar 24, 2020 03:00 PM QUIT TOBACCO USE [facility]-[address] [facility] Feb 21, 2019 04:11 PM QUIT TOBACCO USE 1-7 YEARS AGO [facility] Feb 20, 2019 03:38 PM QUIT TOBACCO USE 1-7 YEARS AGO [facility] Feb 03, 2019 09:50 AM QUIT TOBACCO USE 1-7 YEARS AGO [facility] May 25, 2016 11:53 PM QUIT TOBACCO USE IN PAST YEAR [facility] May 23, 2016 06:57 PM QUIT TOBACCO USE > 7 YEARS AGO [facility] May 19, 2016 03:55 PM QUIT TOBACCO USE IN PAST YEAR [facility] May 19, 2016 10:29 AM QUIT TOBACCO USE 1-7 YEARS AGO [facility] May 01, 2016 07:26 PM QUIT TOBACCO USE IN PAST YEAR [facility] May 01, 2016 03:11 PM QUIT TOBACCO USE IN PAST YEAR [facility] DOYLE [facility] May 01, 2016 11:19 AM QUIT TOBACCO USE IN PAST YEAR [facility] DO[facility] Mar 16, 2016 12:50 PM V1-PT DECLINES REF TO TOBACCO [facility] DOYLE [facility] CESS [facility] Mar 16, 2016 12:50 PM V1-PT THINKING ABOUT QUIT [facility] DOYLE [facility] TOBACCO USE Aug 12, 2015 08:48 AM CURRENT SMOKER [facility] Yates [facility] Radiology Reports: +/- 30 days of [...] the Encounter. The data comes from all [place] treatment facilities. Date/Time Radiology Report Provider Source Dec 13, 2021 12:57 PM MRI ABDOMEN W/WO CONTRAST: MARYELLEN LONG LUCAS LARES N [id number] -1950 [facility] Exm Date: DEC 13, 2021@12:57 Req Phys: ISATU TODD Loc: OP Unknown/0 12-15-2021@13:20 Img Loc: MRI IMAGING (OOS) Service: [facility]AL MEDICINE (Case [id number] COMPLETE) MRI ABDOMEN W/WO CONTRAST (M RI Detailed) CPT:33515 Reason for Study: further characterization of a [...] new lyphadenopathy REQUESTING MD: Isatu Todd PAGER: [phone] PHONE: [phone] Weight: 232.2 lb [105.32 kg] (12/12/2021 05:00) [...] patient will need to arrange for a pedicab driver to take him/her home after the [...] 15, 2021 Date Verified: DEC 15, 2021 [employer] E-Sig:/ES/MARYELLEN LONG Report: MRI ABDOMEN W/WO CONTRAST [...] MALIGNANCY Primary Interpreting Staff: MARYELLEN LONG Staff ([employer]) / Dec 10, 2021 09:[address] ABDOMEN & PELVIS[facility] BENITA MEEKLAS N [id number] -1950 [facility] Ex Date: DEC 10, 2021@09:30 Req Phys: ISATU TODD Loc: 1S MED/12-10@10:57 Img Loc: CT SCAN (OOS) Service: [facility]ICINE (Case [id number] COMPLETE) CT ABD & PELVIS WITHOUT CONT RAST (CT Detailed) CPT:35259 Reason for Study: 71 yo male with [...] INDEX - NO HEIGHTS FOUND Pager number: [phone] STAT orders MUST be call ed to RADIOLOGY [phone] to speak to the appropriate vein access technician. Report Status: Verified Date Reported: DEC 10, 2021 Date Verified: DEC 10, 2021 [employer] E-Sig: Report: EXAM: CT abdomen and pelvis [...] ph nodes. READING PHYSICIAN: Ramone Munoz D.O. [phone] 12/10/2021 10:55 EDT [facility] National Teleradiology Program [phone] (For Medical Practitioner Use Only ) [address] [facility], [facility] [address] [place] [address] Attention Patients / Veterans: If you have ques tions or concerns about these test results, please contact your o rdering provider or primary care team. Primary Diagnostic Code: SIGNIFICANT ABNORMALIT Y, ATTN NEEDED Primary Interpreting Staff: RADIOLOGY,OUTSIDE SERVICE, Staff Physician / Dec 09, 2021 07:34 AM BASW (MODIFIED): JESSIE CHENEY TARA ER JCLUCAS LARES N [id number] -1950 [facility] Exm Date: DEC 09, 2021@07:34 Req Phys: PEYTONISATU Manjarrez Loc: 1S MED/12-09@11:26 Img Loc: XRAY (OOS) Service: [facility] MEDICINE (Case [id number] COMPLETE) BASW (MODIFIED) (RAD Detaile d) CPT:85260 Contrast Media : Barium Reason for Study: dysphagia ?esophageal spasm Clinical History: Report Status: Verified Date Reported: DEC 09, 2021 Date Verified: DEC 09, 2021 [employer] E-Sig:/ES/JESSIE CHENEY Report: BASW (MODIFIED) , 12/09/2021 [...] REQUIRED Primary Interpreting Staff: JESSIE CHENEY, RADIOLOGIST ([employer]) /TLC Dec 06, 2021 12:[address] CHEST (INCLUDES ADRENALS): JESSIE CHENEY LUCAS LARES N [id number] -1950 [facility] Exm Date: DEC 06, 2021@12:59 Req Phys: JELANI SÁNCHEZ Pat Loc: [facility] ED DAYS M 1RD (Req'g Loc) Img Loc: CT SCAN (OOS) Service: Unknown (Case [id number] COMPLETE) CT THORAX W/O CONT (CT Detai led) CPT:38036 Reason for Study: Opacification right chest Clinical History: No contrast allergy BUN: 13 (12/06/21 12:00) CREATI: 0.90 (12/06/21 12:00) eGFR 05/16/21 09:43 52 L Weight: 232.6 lb [105.51 kg] (12/06/2021 11:40) BODY MASS INDEX - NO HEIGHTS FOUND Pager number: [phone] STAT orders MUST be called t o RADIOLOGY [phone] to speak to the appropriate vein access technician. Indications - Other: Opacification right chest, covid positive, lung cancer histo Report Status: Verified Date Reported: DEC 06, 2021 Date Verified: DEC 06, 2021 [employer] E-Sig:/ES/JESSIE CHENEY Report: CT THORAX W/O CONT [...] REQUIRED Primary Interpreting Staff: JESSIE CHENEY, RADIOLOGIST ([employer]) Primary Interpreting Resident: PRINCE CHAMPION, Resident /BR Dec 06, 2021 11:58 AM CHEST SINGLE VIEW: JESSIE CHENEY DOUGLAS N [id number] -1950 [facility] Exm Date: DEC 06, 2021@11:58 Req Phys: GONZALO,JELANI Link Pat Loc: [facility] ED DAYS M 1RD (Req'g Loc) Img Loc: XRAY (OOS) Service: Unknown (Case [id number] COMPLETE) CHEST SINGLE VIEW (RAD Detai led) CPT:20546 Proc Modifiers : PORTABLE EXAM Reason for Study: SOB, home covid test positive Clinical History: Report Status: Verified Date Reported: DEC 06, 2021 Date Verified: DEC 06, 2021 [employer] E-Sig:/ES/JESSIE CHENEY Report: Exam type: Chest x-ray [...] REQUIRED Primary Interpreting Staff: JESSIE CHENEY, RADIOLOGIST ([facility]) /TLC Pathology Reports: +/- 30 days of [...] the Encounter. The data comes from all [place] treatment facilities. Date/Time Pathology Report Provider Source Jan 03, 2022 10:28 AM LR SURGICAL PATHOLOGY REPORT: STEFANY MILLER LOCAL TITLE: LR SURGICAL PATHOLOGY REPORT [facility] STANDARD TITLE: PATHOLOGY REPORT DATE OF NOTE: JAN 03, 2022@10:28:01 ENTRY DATE: JAN 03, 2022@10:28:01 AUTHOR: NIURKA MILLER EXP COSIGNER: URGENCY: STATUS: COMPLETED $APHDR Reporting Lab: CAREY MONTOYA [facility] [CLIA# [id number]] [address] [place] [address] - - - - - - [...] automatically d ocumented from SURGERY package case #[id number] Field (#32) PRINCIPAL PRE-OP DIAGNOSIS, (#.72) OTHER [...] automatically d ocumented from SURGERY package case #[id number] Field (#34) PRINCIPAL POST-OP DIAG, (#.74) OTHER [...] Label: Lucas Meek Paperwork: Lucas Meek Cassette: [id number];..;KALYANI;.;405;[id number] Specimen is labeled: ES bx Received in formalin are several pieces of pale boyd and brown tissue, 1.2 x 0.7 cm in aggregate. Submitted entirely in 1 cassette [id number];..;KALYANI;.;405;[id number] SAW 12/15/2021 Microscopic exam: *+* MODIFIED REPORT *+* (Last modified: JAN 03, 2022@09:30:20 typed by NIURKA WADDELL) DIAGNOSIS: A. 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 Kendell long. TIARA Coombs was notified on 12/21/21. Modified on 01/03/22 to include report from [facility] stating that tumor is NEGATIVE for her2/ matheus amplification. The attending pathologist who signature mansoor ears on this report has reviewed all diagnostic slides and has edited t he gross and/or microscopic portion of this report in rendering the final pathologic diagnosis. [address] [address] CPT: 77658 /emely/ NIURKA Yeung MD Signed Jan 03, 2022@10:28 Performing Laboratory: Surgical Pathology Report Performed By: CAREY DOYEL Gorge [facility] [CLIA# [id number]] [address] [place] [address] $FTR - - - - - [...] - - LUCAS MEEK STANDARD FORM 515 ID:[id number] SEX:M :1950 AGE: 71 LOC: SDM END PCP: Isatu Todd /emely/ NIURKA MILLER Staff Signed: 01/03/2022 10:28 Dec 21, 2021 11:46 AM LR SURGICAL PATHOLOGY REPORT: STEFANY MILLER [facility] LOCAL TITLE: LR SURGICAL PATHOLOGY REPORT [facility] STANDARD TITLE: PATHOLOGY REPORT DATE OF NOTE: DEC 21, 2021@11:46:59 ENTRY DATE: DEC 21, 2021@11:46:59 AUTHOR: NIURKA MILLER EXP COSIGNER: URGENCY: STATUS: COMPLETED $APHDR Reporting Lab: [facility] [CLIA# [id number]] [address] [place] [address] - - - - - - [...] automatically d ocumented from SURGERY package case #[id number] Field (#32) PRINCIPAL PRE-OP DIAGNOSIS, (#.72) OTHER [...] automatically d ocumented from SURGERY package case #[id number] Field (#34) PRINCIPAL POST-OP DIAG, (#.74) OTHER [...] Label: Lucas Meek Paperwork: Lucas Meek Cassette: [id number];..;KALYANI;.;405;[id number] Specimen is labeled: ES bx Received in formalin are several pieces of pale boyd and brown tissue, 1.2 x 0.7 cm in aggregate. Submitted entirely in 1 cassette [id number];..;KALYANI;.;405;[id number] SAW 12/15/2021 Microscopic exam: DIAGNOSIS: A. 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 Kendell long. TIARA Coombs was notified on 12/21/21. The attending pathologist who signature mansoor ears on this report has reviewed all diagnostic slides and has edited t he gross and/or microscopic portion of this report in rendering the final pathologic diagnosis. [address] [address] CPT: 35198 /emely/ NIURAK Yeung MD Signed Dec 21, 2021@11:46 Performing Laboratory: Surgical Pathology Report Performed By: [facility] [CLIA# [id number]] [address] [place] [address] $FTR - - - - - [...] - - LUCAS MEEK STANDARD FORM 515 ID:[id number] SEX:M :1950 AGE: 71 LOC: SDM END PCP: Isatu Todd /charmaine Yeung MD Signed: 12/21/2021 11:46 Dec 06, 2021 03:30 PM LR MICROBIOLOGY REPORT: [facility] Reporting Lab: [facility] [CLIA# [id number]] [address] [place] [address] Accession [UID]: [id number] [[id number]] Receiv ed: Dec 06, 2021@16:14 Collection sample: BLOOD CUL T BOTTLE(NIRMAL/AERO)Collection date: Dec 06, 2021 15:30 Site/Specimen: BLOOD Provider: JELANI SÁNCHEZ Comment on specimen: LAC Test(s) ordered: BLOOD CULTURE ANAEROBI C....... completed: Dec 12, 2021 06:18 * BACTERIOLOGY FINAL REPORT => Dec 12, 2021 06:1 8 TECH CODE: 10686 Bacteriology Remark(s): NO GROWTH IN 5 DAYS =--=--=--=--=--=--=--=--=--=--=--=--=--= --=--=--=--=--=--=--=--=--=--=--=--=-- Performing Laboratory: Bacteriology Report Performed By: [facility] [CLIA# [id number]] [address] [place] [address] Dec 06, 2021 03:30 PM LR MICROBIOLOGY REPORT: [facility] Reporting Lab: [facility] [CLIA# [id number]] [address] [place] [address] Accession [UID]: [id number] [[id number]] Receiv ed: Dec 06, 2021@16:14 Collection sample: BLOOD CUL T BOTTLE(NIRMAL/AERO)Collection date: Dec 06, 2021 15:30 Site/Specimen: BLOOD Provider: JELANI SÁNCHEZ Comment on specimen: LAC Test(s) ordered: BLOOD CULTURE AEROBIC. ........ completed: Dec 12, 2021 06:17 * BACTERIOLOGY FINAL REPORT => Dec 12, 2021 06:1 7 TECH CODE: 07352 Bacteriology Remark(s): NO GROWTH IN 5 DAYS =--=--=--=--=--=--=--=--=--=--=--=--=--= --=--=--=--=--=--=--=--=--=--=--=--=-- Performing Laboratory: Bacteriology Report Performed By: [facility] [CLIA# [id number]] [address] [place] [address]
--- OUTSIDE RECORDS SUMMARY | 2022-01-19 08:39 | XMS_ITS ---
DAILY HOSPITALIZATION DATA [facility] Encounter Summary Created on:December 12, 2021 Patient:LUCAS MEEK Sex:Male :1950 Author Organization [facility] Address [address] [place] [id number] Support Name Relationship Address Phone YUSRA MEEK Unavailable [address] [place] [address] YUSRA MEEK Unavailable [address] [place] [facility] [place] [address] CLAY MOSLEY Unavailable Unavailable SJ SANTACRUZ Unavailable [...] MEDICARE MEDICARE PART Jun 18, PART A [id number] DO KALYANI PATIENT (WNR) (M) A 2016 13A 1 UGLAS MEDICARE MEDICARE PART Jun 18, PART B [id number] DO KALYANI PATIENT (WNR) (M) B 2016 13A 1 U[place]AS MEDICARE MEDICARE PART Jun 18, PART A [id number] KALYANIDO PATIENT (WNR) (M) A 2017 VH81 2 UGLAS MEDICARE MEDICARE PART Jun 18, PART B [id number] DO KALYANI PATIENT (WNR) (M) B 2017 VH81 2 U[place]AS UNITED MEDICARE MCR(Jun 18 [id number] Luz MEEK PATIENT HEALTHCARE ADVANTAGE NR) 2021 37 0 [facility] (WNR) Selected Encounter This section includes the information on record at [place] for the Encounter. Date/Time Encounter Type Encounter Description Reason Provider Source Dec 12, 2021 04:14 Inpatient Visit DAILY HOSPITALIZATION DATA PM IHE Encounter Template Text not used by [place] Plan of Treatment: Future Appointments (+ 6 [...] [place] [facility] Jan 06, 2022 02:00 PM [place] [facility] Jan 10, 2022 11:30 AM AMBULATORY - MEDICINE [facility] Jan 24, 2022 08:00 AM [place] [facility] Feb 21, 2022 10:00 AM [place] [facility] [...] The data comes from all [place] treatment [facility]. Test Date/Time Test Type Test Details Facility Name October 31, 2021 07:37 AM Consult Order [facility]-EGD [facility] Cons Address Change Clerk's Choice November 15, 2021 10:37 AM Consult Order [facility] Cons Address Change Clerk's Choice Dec 06, 2021 12:52 PM Pharmacy [place] Infusion Order [facility] Dec 06, 2021 03:24 PM Pharmacy [place] [facility] Dec 06, 2021 03:40 PM [place]acy [place] [facility] Dec 15, 2021 08:41 AM Consult Order SPEECH PATHOLOGY [place] OUT[place] Cons [facility] Address Change Clerk's Choice Jan 15, 2022 10:08 PM Consult Order [facility] CARE-PALLIATIVE CARE Cons Address Change Clerk's Choice Lab Results: +/- 30 days of [...] Reference Range Comment Dec 15, 2021 [place] P4 GLU,BUN,CREAT,LYTES,CA Speci men Type: PLASMA 06:43 AM [facility] Comment: Tests performed on [employer] (405) SN:[id number] Ordering Provid er: ISATU TODD Report Released Date/Time: Dec 11, 2021 07:42 AM Reporting Lab: [facility] T [facility] [address] [facility] [address] Performing Lab: [facility] [address] [facility] [address] UREA NITROGEN 9 7-25 SODIUM 137 135-145 POTASSIUM 3.8 3.5-5.0 CHLORIDE 105 100-110 CARBON DIOXIDE 26 20-30 ANION GAP 6 4-16 GLUCOSE 102 H 65-100 CREATININE 0.64 0.5-1.5 CALCIUM 8.1 L 8.5-10.5 eGFR(CKD-EPI 2020) >90.0 >60 Dec 15, 2021 06:43 AM [facility] CBC PROFILE Sp ecimen Type: BLOOD No comment enter ed. Ordering Provid er: ISATU TODD Report Released Date/Time: Dec 10, 2021 07:22 AM Reporting Lab: [facility] [address] [facility] [address] Performing Lab: [facility] [address] [facility] [address] WBC 5.7 4.5-11.0 RBC 4.22 L 4.23-5.66 [...] 2 NUE, FFPE See full report in Neuronex Image display viewer/tab#LAB-Reference Ordering Provid er: NIURKA MILLER Report Released Date/Time: Dec 21, 2021 12:11 PM Reporting Lab: [facility] [address] [facility] [address] Performing Lab: [facility] comment Dec 14, 2021 [facility] P4 GLU,BUN,CREAT,LYTES,CA Speci men Type: PLASMA 06:27 AM [facility] Comment: Tests performed on [employer] (405) SN:[id number] Ordering Provid er: ISATU TODD Report Released Date/Time: Dec 11, 2021 07:42 AM Reporting Lab: [facility] [address] [facility] [address] Performing Lab: [facility] [address] [facility] [address] UREA NITROGEN 10 7-25 SODIUM 137 135-145 POTASSIUM 4.0 3.5-5.0 CHLORIDE 104 100-110 CARBON DIOXIDE 25 20-30 ANION GAP 8 4-16 GLUCOSE 99 65-100 CREATININE 0.67 0.5-1.5 CALCIUM 8.2 L 8.5-10.5 eGFR(CKD-EPI 2020) >90.0 >60 Dec 14, 2021 06:27 AM [facility] Sp ecimen Type: BLOOD No comment enter ed. Ordering Provid er: ISATU TODD Report Released Date/Time: Dec 10, 2021 07:22 AM Reporting Lab: [facility] [address] [facility] [address] Performing Lab: [facility] [address] [facility] [address] WBC 6.0 4.5-11.0 RBC 4.29 4.23-5.66 HGB [...] Lab: [facility] [address] [facility] [address] Performing Lab: [facility] [address] [facility] [address] WBC 5.6 4.5-11.0 RBC 4.28 4.23-5.66 HGB [...] GLU,BUN,CREAT,LYTES,CA Speci men Type: PLASMA 06:34 AM [facility] Comment: Tests performed on [employer] (405) SN:[id number] Ordering Provid er: ISATU TODD Report Released Date/Time: Dec 11, 2021 07:42 AM Reporting Lab: [facility] [address] [facility] [address] Performing Lab: [facility] [address] [facility] [address] UREA NITROGEN 12 7-25 SODIUM 136 135-145 POTASSIUM 3.9 3.5-5.0 CHLORIDE 105 100-110 CARBON DIOXIDE 24 20-30 ANION GAP 7 4-16 GLUCOSE 102 H 65-100 CREATININE 0.66 0.5-1.5 CALCIUM 8.3 L 8.5-10.5 eGFR(CKD-EPI 2020) >90.0 >60 Dec 12, 2021 [facility] GLU,BUN,CREAT,LYTES,CA Speci men Type: PLASMA 06:21 AM [facility] Comment: Tests performed on [employer] (405) SN:[id number] Ordering Provid er: ISATU TODD Report Released Date/Time: Dec 11, 2021 07:42 AM Reporting Lab: [facility] [address] [facility] [address] Performing Lab: [facility] [address] [facility] [address] UREA NITROGEN 11 7-25 SODIUM 139 135-145 POTASSIUM 4.1 3.5-5.0 CHLORIDE 107 100-110 CARBON DIOXIDE 24 20-30 ANION GAP 8 4-16 GLUCOSE 110 H 65-100 CREATININE 0.70 0.5-1.5 CALCIUM 8.3 L 8.5-10.5 eGFR(CKD-EPI 2020) >90.0 >60 Dec 12, 2021 06:21 AM [facility] CBC PROFILE Sp ecimen Type: BLOOD No comment enter ed. Ordering Provid er: ISATU TODD Report Released Date/Time: Dec 10, 2021 07:22 AM Reporting Lab: [facility] [address] [facility] [address] Performing Lab: [facility] [address] [facility] [address] WBC 5.5 4.5-11.0 RBC 4.37 4.23-5.66 HGB [...] 0.00 0-0 Dec 12, 2021 06:00 AM [employer] [facility] MAGNESIUM Sp ecimen Type: PLASMA Comment: Testin g Performed on [employer] (405) SN:[id number] Ordering Provid er: ISATU TODD Report Released Date/Time: Dec 12, 2021 08:24 AM Reporting Lab: [place] [employer] [facility] [address] [facility] [address] Performing Lab: [employer] [place] [employer] [employer] [address] [facility] [address] MAGNESIUM 1.8 1.6-2.6 Dec 12, 2021 06:00 AM G[employer]T [employer] PHOSPHORUS Sp ecimen Type: PLASMA Comment: Testin g Performed on [employer] (405) SN:[id number] Ordering Provid er: ISATU TODD Report Released Date/Time: Dec 12, 2021 08:24 AM Reporting Lab: [place] [employer] [facility] [address] [facility] [address] Performing Lab: [place] [employer] [address] [facility] [address] PHOSPHORUS 3.1 2.5-5.0 Dec 11, 2021 06:15 AM [employer] [place] [employer] ELECTROLYTES Sp ecimen Type: PLASMA Comment: Tests performed on [employer] (405) SN:[id number] Ordering Provid er: ISATU TODD Report Released Date/Time: Dec 10, 2021 07:22 AM Reporting Lab: [place] [employer] [facility] [address] [facility] [address] Performing Lab: [place] [employer] [facility] [address] [facility] [address] SODIUM 137 135-145 POTASSIUM 4.3 3.5-5.0 CHLORIDE 108 100-110 CARBON DIOXIDE 20 20-30 ANION GAP 9 4-16 Dec 11, 2021 06:15 AM [place] [employer] [facility] CBC PROFILE Sp ecimen Type: BLOOD Comment: Result s checked Ordering Provid er: ISATU TODD Report Released Date/Time: Dec 10, 2021 07:22 AM Reporting Lab: [place] [employer] [facility] [address] [facility] [address] Performing Lab: [place] [facility] [address] [facility] [address] WBC 5.8 4.5-11.0 RBC 4.37 4.23-5.66 HGB [...] ecimen Type: PLASMA Comment: Tests performed on [employer] (361) SN:[id number] Results checked Ordering Provid er: ISATU TODD Report Released Date/Time: Dec 11, 2021 07:44 AM Reporting Lab: [facility] [facility] [address] [facility] [address] Performing Lab: [place] [facility] [address] [facility] [address] PHOSPHORUS 3.0 2.5-5.0 Dec 10, 2021 08:05 AM [place] [facility] MAGNESIUM Sp ecimen Type: PLASMA Comment: [place] [id number] on Dec 10, 2021@08:31 Tests performed on [employer] (405) SN:[id number] Ordering Provid er: ISATU TODD Report Released Date/Time: Dec 10, 2021 07:22 AM Reporting Lab: [place] [facility] [address] [facility] [place] [address] Performing Lab: [place] [facility] [address] [facility] [place] [address] MAGNESIUM 1.7 1.6-2.6 Dec 10, 2021 08:05 AM [place] [facility] PHOSPHORUS Sp ecimen Type: PLASMA Comment: [place] [id number] on Dec 10, 2021@08:31 Tests performed on [employer] (405) SN:[id number] Ordering Provid er: ISATU TODD Report Released Date/Time: Dec 10, 2021 07:22 AM Reporting Lab: [place] [facility] [address] [facility] [place] [address] Performing Lab: [place] [facility] [address] [facility] [place] [address] PHOSPHORUS 1.8 L 2.5-5.0 Dec 10, 2021 08:05 AM [place] UREA NITROGEN Specimen Type: PLASMA [facility] Comment: [place] [id number] on Dec 10, 2021@08:31 Tests performed on [employer] (405) SN:[id number] Ordering Provid er: ISATU TODD Report Released Date/Time: Dec 10, 2021 07:22 AM Reporting Lab: [place] [facility] [address] [facility] [place] [address] Performing Lab: [place] [facility] [address] [facility] [place] [address] UREA NITROGEN 8 7-25 Dec 10, 2021 08:05 AM [place] [facility] GLUCOSE Sp ecimen Type: PLASMA Comment: [place] [id number] on Dec 10, 2021@08:31 Tests performed on [employer] (405) SN:[id number] Ordering Provid er: ISATU TODD Report Released Date/Time: Dec 10, 2021 07:22 AM Reporting Lab: [place] [facility] [address] [facility] [address] Performing Lab: [place] [facility] [address] [facility] [address] GLUCOSE 144 H 65-100 Dec 10, 2021 08:05 AM [place] [facility] CALCIUM Sp ecimen Type: PLASMA Comment: [place] [id number] on Dec 10, 2021@08:31 Tests performed on [employer] (405) SN:[id number] Ordering Provid er: ISATU TODD Report Released Date/Time: Dec 10, 2021 07:22 AM Reporting Lab: [place] [facility] [address] [facility] [address] Performing Lab: [place] [facility] [address] [facility] [address] CALCIUM 8.3 L 8.5-10.5 Dec 10, 2021 08:05 AM [place] [facility] ELECTROLYTES Sp ecimen Type: PLASMA Comment: [place] [id number] on Dec 10, 2021@08:31 Tests performed on [employer] (405) SN:[id number] Ordering Provid er: ISATU TODD Report Released Date/Time: Dec 10, 2021 07:22 AM Reporting Lab: [place] [facility] [address] [facility] [address] Performing Lab: [place] [facility] [address] [facility] [address] SODIUM 139 135-145 POTASSIUM 3.7 3.5-5.0 CHLORIDE 107 100-110 CARBON DIOXIDE 24 20-30 ANION GAP 8 4-16 Dec 10, 2021 08:05 AM [place] [facility] CBC PROFILE Sp ecimen Type: BLOOD No comment enter ed. Ordering Provid er: ISATU TODD Report Released Date/Time: Dec 10, 2021 07:22 AM Reporting Lab: [place] [facility] [address] [facility] [address] Performing Lab: [place] [facility] [address] [facility] [address] WBC 7.0 4.5-11.0 RBC 4.54 4.23-5.66 HGB [...] PLASMA AM [facility] PANEL Comment: [place] [id number] on Dec 10, 2021@08:31 Tests performed on [employer] (405) SN:[id number] Ordering Provid er: ISATU TODD Report Released Date/Time: Dec 10, 2021 07:22 AM Reporting Lab: [facility] [address] [facility] [address] Performing Lab: [facility] [address] [facility] [address] CREATININE 0.78 0.5-1.5 eGFR(CKD-EPI 2020) >90.0 >60 Dec 09, 2021 06:46 AM [place] [facility] MAGNESIUM Sp ecimen Type: PLASMA Comment: Tests performed on [employer] (405) SN:[id number] Ordering Provid er: ISATU TODD Report Released Date/Time: Dec 08, 2021 10:23 AM Reporting Lab: [place] [facility] [address] [facility] [address] Performing Lab: [place] [facility] [address] [facility] [address] MAGNESIUM 1.6 1.6-2.6 Dec 09, 2021 [facility] P4 GLU,BUN,CREAT,LYTES,CA Speci men Type: PLASMA 06:46 AM [facility] Comment: Tests performed on [employer] (405) SN:[id number] Ordering Provid er: ISATU TODD Report Released Date/Time: Dec 08, 2021 05:00 PM Reporting Lab: [facility] [address] [facility] [address] Performing Lab: [facility] [address] [facility] [address] UREA NITROGEN 6 L 7-25 SODIUM 134 [...] PM Reporting Lab: [facility] [address] [facility] [address] Performing Lab: [facility] [address] [facility] [address] WBC 7.1 4.5-11.0 RBC 4.40 4.23-5.66 HGB [...] 0-0 Dec 08, 2021 06:39 AM [facility] MAGNESIUM Sp ecimen Type: PLASMA Comment: Testin g Performed on [employer] (405) SN:[id number] Ordering Provid er: ISATU TODD Report Released Date/Time: Dec 07, 2021 10:32 AM Reporting Lab: [facility] [address] [facility] [address] Performing Lab: [facility] [address] [facility] [address] MAGNESIUM 1.5 L 1.6-2.6 Dec 08, 2021 06:39 AM [facility] CBC PROFILE Sp ecimen Type: BLOOD No comment enter ed. Ordering Provid er: ISATU TODD Report Released Date/Time: Dec 07, 2021 10:32 AM Reporting Lab: [facility] [address] [facility] [address] Performing Lab: [facility] [address] [facility] [address] WBC 8.4 4.5-11.0 RBC 4.75 4.23-5.66 HGB [...] ABSOLUTE NRBC 0.00 0-0 Dec 08, 2021 [facility] P4 GLU,BUN,CREAT,LYTES,CA Speci men Type: PLASMA 06:39 AM [facility] Comment: Testin g Performed on [employer] (405) SN:[id number] Ordering Provid er: ISATU OTDD Report Released Date/Time: Dec 07, 2021 10:32 AM Reporting Lab: [facility] [address] [facility] [address] Performing Lab: [facility] [address] [facility] [address] UREA NITROGEN 6 L 7-25 SODIUM 136 135-145 POTASSIUM 3.3 L 3.5-5.0 CHLORIDE 104 100-110 CARBON DIOXIDE 22 20-30 ANION GAP 10 4-16 GLUCOSE 133 H 65-100 CREATININE 0.76 0.5-1.5 CALCIUM 8.4 L 8.5-10.5 eGFR(CKD-EPI 2020) >90.0 >60 Dec 07, 2021 [facility] P4 GLU,BUN,CREAT,LYTES,CA Speci men Type: PLASMA 06:42 AM [facility] Comment: Tests performed on [employer] (405) SN:[id number] Ordering Provid er: PORFIRIO WALTERS Report Released Date/Time: Dec 06, 2021 06:57 PM Reporting Lab: [place] [employer] [facility] [address] [facility] [address] Performing Lab: [facility] [address] [facility] [address] UREA NITROGEN 9 7-25 SODIUM 135 135-145 POTASSIUM 3.5 3.5-5.0 CHLORIDE 103 100-110 CARBON DIOXIDE 22 20-30 ANION GAP 10 4-16 GLUCOSE 92 65-100 CREATININE 0.73 0.5-1.5 CALCIUM 8.0 L 8.5-10.5 eGFR(CKD-EPI 2020) >90.0 >60 Dec 07, 2021 06:42 [place] LIVER PROFILE Specimen Typ e: PLASMA AM [facility] Comment: Tests performed on [employer] Computer Education Teacher (405) SN:[id number] Ordering Provid er: PORFIRIO WALTERS Report Released Date/Time: Dec 06, 2021 06:57 PM Reporting Lab: [facility] [address] [facility] [address] Performing Lab: [facility] [address] [facility] [address] PROTEIN, TOTAL 5.7 L 6.0-8.5 ALBUMIN 2.4 L 3.2-5.0 BILIRUBIN, TOTAL 0.4 0.2-1.2 ALKALINE PHOSPHATASE 109 40-150 ALT(SGPT) 10 7-52 AST(SGOT) 15 5-34 FIB-4 SCORE 1.92 <2.67 Dec 07, 2021 06:42 AM [place] [facility] CBC PROFILE Specimen Type: BLOOD [facility] No comment enter ed. Ordering Provid er: PORFIRIO WALTERS Report Released Date/Time: Dec 06, 2021 06:57 PM Reporting Lab: [facility] [address] [facility] [address] Performing Lab: [facility] [address] [facility] [address] WBC 5.7 4.5-11.0 RBC 4.15 L 4.23-5.66 [...] [facility] %) AUTOMATED Comment: Tests performed on [employer] (405) SN:[id number] Ordering Provid er: ISATU TODD Report Released Date/Time: Dec 07, 2021 10:28 AM Reporting Lab: [place] [facility] [address] [facility] [address] Performing Lab: [place] [facility] [address] [facility] [address] RETICULOCYTES (%) AUTOMATED 1.23 0. 6-2.0 RETICULOCYTES (ABS) AUTOMATED 0.052 0.030-0.090 Dec 06, 2021 09:45 [place] MRSA SURVL NARES Specimen Ty pe: NARES PM [facility] DNA No comment enter ed. Ordering Provid er: ALVARO VARGHESE Report Released Date/Time: Dec 07, 2021 02:20 AM Reporting Lab: [place] [facility] [address] [facility] [address] Performing Lab: [place] [facility] [address] [facility] [address] MRSA SURVL NARES DNA NEGATIVE NEGATIVE Dec 06, 2021 06:00 [place] URINALYSIS W/REFLEX TO Speci men Type: URINE PM [facility] CULTURE No comment enter ed. Ordering Provid er: JELANI SÁNCHEZ Report Released Date/Time: Dec 06, 2021 11:57 AM Reporting Lab: [place] [facility] [address] [facility] [address] Performing Lab: [place] [facility] [address] [facility] [address] URINE COLOR Arlin YELLOW SPECIFIC GRAVITY 1.029 [...] 21, RIVER VARIANT Comment: https://www.cdc.gov/coronavirus/2019-ncov/cases-updates/variant- surveillance/variant-info.html The Kuaidi Dache SARS CoV 2 Mobile[employer] Research Assay-GX is a next-generation sequencing (NGS) assa 2021 [facility] SEQUENCING y that determine s the complete genome sequence of the SARS-CoV-2 virus. The assay contains variant-tolerant primers to broaden and improve the coverage for variant detection and increase the sensitivity 12:00 [facility] PNL(WH) of the panel to enable detection from lower viral titer samples. The assay is run on the LetMeGo Sequencer, which performs automated library preparation, sequencing, analysis, and reporting. PM The sequence an alysis includes determination of viral phylogenetic lineage by comparison to the reference strain Wuhan-Hu-1, GenBank: [id number]. Sequence determination may not be possible owing [...] by the on-service pathologist. Ordering Provid er: JELAIN SÁNCHEZ Report Released Date/Time: Dec 06, 2021 01:13 PM Reporting Lab: [facility] [address] [facility] [address] Performing Lab: [facility] [address] [facility] [address] SARS-CoV-2 CLADE() 22C (OMICRON) SARS-CoV-2 LINEAGE() BA.2.12.1 Dec 06, 2021 12:00 [facility] COVID-19 AG SCREEN Specimen Type: NASAL CAVITY PM [facility] PANEL BINAX(405) Comment: Testi ng Performed By: Mike Briscoe Ordering Provid er: JELANI SÁNCHEZ Report Released Date/Time: Dec 08, 2021 08:23 AM Reporting Lab: [facility] [address] [facility] [address] Performing Lab: [facility] [address] [facility] [address] COVID-19 AG SCRN(wrj BINAX) POSITIVE HH NE G Dec 06, 2021 12:00 PM [facility] TROPONIN II Sp ecimen Type: PLASMA Comment: Tests performed on Pham Computer Education Teacher (405) SN:[id number] Ordering Provid er: JELANI SÁNCHEZ Report Released Date/Time: Dec 06, 2021 11:57 AM Reporting Lab: [facility] [address] [facility] [address] Performing Lab: [facility] [address] [facility] [address] TROPONIN II 0.03 0.00-0.29 Dec 06, 2021 [place] P4 GLU,BUN,CREAT,LYTES,CA Speci men Type: PLASMA 12:00 PM [facility] Comment: Testin g Performed on [employer]am Computer Education Teacher (405) SN:[id number] Ordering Provid er: JELANI SÁNCHEZ Report Released Date/Time: Dec 06, 2021 11:57 AM Reporting Lab: [place] [facility] [address] [facility] [address] Performing Lab: [place] [facility] [address] [facility] [address] UREA NITROGEN 13 7-25 SODIUM 138 135-145 POTASSIUM 3.8 3.5-5.0 CHLORIDE 103 100-110 CARBON DIOXIDE 23 20-30 ANION GAP 12 4-16 GLUCOSE 105 H 65-100 CREATININE 0.90 0.5-1.5 CALCIUM 8.7 8.5-10.5 eGFR(CKD-EPI 2020) >90.0 >60 Dec 06, 2021 12:00 PM [facility] LIVER PROFILE Sp ecimen Type: PLASMA Comment: Testin g Performed on [employer] Computer Education Teacher (405) SN:[id number] Ordering Provid er: JELANI SÁNCHEZ Report Released Date/Time: Dec 06, 2021 11:57 AM Reporting Lab: [facility] [address] [facility] [address] Performing Lab: [facility] [address] [facility] [address] PROTEIN, TOTAL 6.6 6.0-8.5 ALBUMIN 2.8 L 3.2-5.0 BILIRUBIN, TOTAL 0.6 0.2-1.2 ALKALINE PHOSPHATASE 134 40-150 ALT(SGPT) 13 7-52 AST(SGOT) 18 5-34 FIB-4 SCORE 1.94 <2.67 Dec 06, 2021 [facility] COVID-19+FLU/RSV DIAGNOSTIC Spe cimen Type: NASOPHARYNX 12:00 PM [facility] PANEL(405) Comment: Tests performed on Bii[employer] Genexpert (405) Critical results called to and read back by: ALESHIA WILKINSON RN 12/06/21 @ 1312 Ordering Provid er: JELANI SÁNCHEZ Report Released Date/Time: Dec 06, 2021 11:57 AM Reporting Lab: [facility] [address] [address] Performing Lab: [facility] [address] [address] FLU A(PCR) NEGATIVE NEGATIVE FLU B(PCR) NEGATIVE NEGATIVE RSV(PCR) NEGATIVE NEGATIVE COVID-19([id number]) DETECTED HH NO T DETECTED Dec 06, 2021 12:00 PM [facility] BNP(P) Sp ecimen Type: PLASMA Comment: Tests performed on Pham Computer Education Teacher (405) [id number] Ordering Provid er: JELANI SÁNCHEZ Report Released Date/Time: Dec 06, 2021 11:57 AM Reporting Lab: [facility] [address] [address] Performing Lab: [facility] [address] [address] BNP(P) 224.8 H 10-100 Dec 06, 2021 12:00 PM [facility] CBC PROFILE Sp ecimen Type: BLOOD No comment enter ed. Ordering Provid er: JELANI SÁNCHEZ Report Released Date/Time: Dec 06, 2021 11:57 AM Reporting Lab: [facility] [address] [address] [facility] [address] [address] WBC 7.2 4.5-11.0 RBC 4.86 4.23-5.66 HGB [...] 2021 07:43 /min mm[Hg] RIVER PM T [facility] Dec 12, 0 WHITE 2021 07:37 RIVER PM [place] [facility] Dec 12, 0 WHITE 2021 02:17 RIVER PM T [facility] Dec 12, 98 F 82 127/76 18 /min 97 % WHITE 2021 02:01 /min mm[Hg] RIVER PM T [facility] Dec 12, 0 2021 10:59 RIVER AM [facility] Social History: Smoking Status (Most current) and [...] took place. Date/Time Smoking Status/Tobacco Use Comment [facility] Apr 01, 2020 01:16 PM QUIT TOBACCO USE 1-7 YEARS AGO [facility] Mar 24, 2020 03:00 PM QUIT TOBACCO USE 1-7 YEARS AGO [facility] Feb 21, 2019 04:11 PM QUIT TOBACCO USE 1-7 YEARS AGO [facility] Feb 20, 2019 03:38 PM QUIT TOBACCO USE 1-7 YEARS AGO [facility] Feb 03, 2019 09:50 AM QUIT TOBACCO USE 1-7 YEARS AGO [facility] May 25, 2016 11:53 PM QUIT TOBACCO USE IN PAST YEAR [facility] May 23, 2016 06:57 PM QUIT [...] TOBACCO USE IN PAST YEAR [facility] DOYLE [facility] May 01, 2016 11:19 AM QUIT TOBACCO USE IN PAST YEAR [facility] DOYLE [facility] Mar 16, 2016 12:50 PM V1-PT DECLINES REF TO TOBACCO [facility] DO[facility] CESS [facility] Mar 16, 2016 12:50 PM V1-PT THINKING ABOUT QUIT [facility] DOYLE [facility] TOBACCO USE Aug 12, 2015 08:48 AM CURRENT SMOKER [facility] Yates [facility] Radiology Reports: +/- 30 days of the [...] comes from all [place] treatment facilities. Date/Time Radiology Report Provider Source Dec 13, 2021 12:57 PM MRI ABDOMEN W/WO CONTRAST: MARYELLEN LONG LUCAS LARES N [id number] -1950 [facility] Exm Date: DEC 13, 2021@12:57 Req Phys: ISATU TODD Loc: OP Unknown/0 12-15-2021@13:20 Img Loc: MRI IMAGING (OOS) Service: ZZGENERAL MEDICINE (Case [id number] COMPLETE) MRI ABDOMEN W/WO CONTRAST (M RI Detailed) CPT:06494 Reason for Study: further characterization of a [...] new lyphadenopathy REQUESTING MD: Isatu Todd PAGER: [phone] PHONE: [phone] Weight: 232.2 lb [105.32 kg] (12/12/2021 05:00) [...] patient will need to arrange for a 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 heavy to take him/her home after the MRI [...] 15, 2021 Date Verified: DEC 15, 2021 Talent Acquisition Consultant E-Sig:/ES/MARYELLEN LONG Report: MRI ABDOMEN W/WO CONTRAST [...] MALIGNANCY Primary Interpreting Staff: MARYELLEN LONG Staff (Talent Acquisition Consultant) / Dec 10, 2021 09:[address] ABDOMEN & PELVIS: [facility] BENITA MEEKLAS N [id number] -1950 SERV[facility] Ex Date: DEC 10, 2021@09:30 Req Phys: ISATU TODD Loc: 1S MED/12-10@10:57 Img Loc: CT SCAN (OOS) Service: [facility] MEDICINE (Case [id number] COMPLETE) CT ABD & PELVIS WITHOUT CONT RAST (CT Detailed) CPT:03130 Reason for Study: 71 yo male with [...] INDEX - NO HEIGHTS FOUND Pager number: [phone] STAT orders MUST be call ed to RADIOLOGY [phone] to speak to the appropriate store facility technician. Report Status: Verified Date Reported: DEC 10, 2021 Date Verified: DEC 10, 2021 Talent Acquisition Consultant E-Sig: Report: EXAM: CT abdomen and pelvis [...] ph nodes. READING PHYSICIAN: Ramone Munoz D.O. [phone] 12/10/2021 10:55 EDT [facility] National Teleradiology Program [phone] (For Medical Practitioner Use Only ) [address] [facility], [facility] [address], [address] [place] [address] Attention Patients / Veterans: If you have ques tions or concerns about these test results, please contact your o rdering provider or primary care team. Primary Diagnostic Code: SIGNIFICANT ABNORMALIT Y, ATTN NEEDED Primary Interpreting Staff: RADIOLOGY,OUTSIDE SERVICE, Staff Physician / Dec 09, 2021 07:34 AM BASW (MODIFIED): JESSIE CHENEY TARA ER JCLUCAS LARES N [id number] -1950 M [facility] Exm Date: DEC 09, 2021@07:34 Req Phys: PEYTONISATU Manjarrez Loc: 1S MED/12-09@11:26 Img Loc: XRAY (OOS) Service: [facility] MEDICINE (Case [id number] COMPLETE) BASW (MODIFIED) (RAD Detaile d) CPT:32541 Contrast Media : Barium Reason for Study: dysphagia ?esophageal spasm Clinical History: Report Status: Verified Date Reported: DEC 09, 2021 Date Verified: DEC 09, 2021 Talent Acquisition Consultant E-Sig:/ES/JESSIE CHENEY Report: BASW (MODIFIED) , 12/09/2021 [...] REQUIRED Primary Interpreting Staff: JESSIE CHENEY, RADIOLOGIST (Talent Acquisition Consultant) /TLC Dec 06, 2021 12:[address] CHEST (INCLUDES ADRENALS): JESSIE CHENEY LUCAS LARES N [id number] -1950 M [facility] Exm Date: DEC 06, 2021@12:59 Req Phys: JELANI SÁNCHEZ Pat Loc: [facility] ED DAYS M 1RD (Req'g Loc) Img Loc: CT SCAN (OOS) Service: Unknown (Case [id number] COMPLETE) CT THORAX W/O CONT (CT Detai led) CPT:96667 Reason for Study: Opacification right chest Clinical History: No contrast allergy BUN: 13 (12/06/21 12:00) CREATI: 0.90 (12/06/21 12:00) eGFR 05/16/21 09:43 52 L Weight: 232.6 lb [105.51 kg] (12/06/2021 11:40) BODY MASS INDEX - NO HEIGHTS FOUND Pager number: [phone] STAT orders MUST be called t o RADIOLOGY [phone] to speak to the appropriate store facility technician. Indications - Other: Opacification right chest, covid positive, lung cancer histo Report Status: Verified Date Reported: DEC 06, 2021 Date Verified: DEC 06, 2021 Talent Acquisition Consultant E-Sig:/ES/JESSIE CHENEY Report: CT THORAX W/O CONT [...] REQUIRED Primary Interpreting Staff: JESSIE CHENEY, RADIOLOGIST (Talent Acquisition Consultant) Primary Interpreting Resident: PRINCE CHAMPION, Resident /BR Dec 06, 2021 11:58 AM CHEST SINGLE VIEW: JESSIE CHENEY DOUGLAS N [id number] -1950 M [facility] Exm Date: DEC 06, 2021@11:58 Req Phys: GONZALO,JELANI Link Pat Loc: [facility] ED DAYS M 1RD (Req'g Loc) Img Loc: XRAY (OOS) Service: Unknown (Case [id number] COMPLETE) CHEST SINGLE VIEW (RAD Detai led) CPT:92566 Proc Modifiers : PORTABLE EXAM Reason for Study: SOB, home covid test positive Clinical History: Report Status: Verified Date Reported: DEC 06, 2021 Date Verified: DEC 06, 2021 Talent Acquisition Consultant E-Sig:/ES/JESSIE CHENEY Report: Exam type: Chest x-ray [...] REQUIRED Primary Interpreting Staff: JESSIE CHENEY, RADIOLOGIST (Talent Acquisition Consultant) /TLC Pathology Reports: +/- 30 days of [...] MILLER LOCAL TITLE: LR SURGICAL PATHOLOGY REPORT [facility] STANDARD TITLE: PATHOLOGY REPORT DATE OF NOTE: JAN 03, 2022@10:28:01 ENTRY DATE: JAN 03, 2022@10:28:01 AUTHOR: NIURKA MILLER EXP COSIGNER: URGENCY: STATUS: COMPLETED $APHDR Reporting Lab: [facility] MONTO[facility] [CLIA# [id number]] [address] [place] [address] - - - - - - [...] automatically d ocumented from SURGERY package case #[id number] Field (#32) PRINCIPAL PRE-OP DIAGNOSIS, (#.72) OTHER [...] automatically d ocumented from SURGERY package case #[id number] Field (#34) PRINCIPAL POST-OP DIAG, (#.74) OTHER [...] Label: Lucas Meek Paperwork: Lucas Meek Cassette: [id number];..;KALYANI;.;405;[phone] Specimen is labeled: ES bx Received in formalin are several pieces of pale obyd and brown tissue, 1.2 x 0.7 cm in aggregate. Submitted entirely in 1 cassette [id number];..;KALYANI;.;405;[id number] SAW 12/15/2021 Microscopic exam: *+* MODIFIED REPORT *+* (Last modified: JAN 03, 2022@09:30:20 typed by NIURKA WADDELL) DIAGNOSIS: A. 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 Kendell long. TIARA Coombs was notified on 12/21/21. Modified on 01/03/22 to include report from [facility] stating that tumor is NEGATIVE for her2/ matheus amplification. The attending pathologist who signature mansoor ears on this report has reviewed all diagnostic slides and has edited t he gross and/or microscopic portion of this report in rendering the final pathologic diagnosis. [address] [address] CPT: 37750 /emely/ NIURKA Yeung MD Signed Jan 03, 2022@10:28 Performing Laboratory: Surgical Pathology Report Performed By: [facility] [CLIA# [id number]] [address] [place] [address] $FTR - - - - - [...] - - LUCAS MEEK STANDARD FORM 515 ID:[id number] SEX:M :1950 AGE: 71 LOC: SDM END PCP: Isatu Todd /emely/ NIURKA MILLER Staff Signed: 01/03/2022 10:28 Dec 21, 2021 11:46 AM LR SURGICAL PATHOLOGY REPORT: STEFANY MILLER [facility] LOCAL TITLE: LR SURGICAL PATHOLOGY REPORT [facility] STANDARD TITLE: PATHOLOGY REPORT DATE OF NOTE: DEC 21, 2021@11:46:59 ENTRY DATE: DEC 21, 2021@11:46:59 AUTHOR: NIURKA MILLER EXP COSIGNER: URGENCY: STATUS: COMPLETED $APHDR Reporting Lab: [facility] [CLIA# [id number]] [address] [place] [address] - - - - - - [...] automatically d ocumented from SURGERY package case #[id number] Field (#32) PRINCIPAL PRE-OP DIAGNOSIS, (#.72) OTHER [...] automatically d ocumented from SURGERY package case #[id number] Field (#34) PRINCIPAL POST-OP DIAG, (#.74) OTHER [...] Label: Lucas Meek Paperwork: Lucas Meek Cassette: [id number];..;KALYANI;.;405;[id number] Specimen is labeled: ES bx Received in formalin are several pieces of pale boyd and brown tissue, 1.2 x 0.7 cm in aggregate. Submitted entirely in 1 cassette [id number];..;KALYANI;.;405;[id number] SAW 12/15/2021 Microscopic exam: DIAGNOSIS: A. 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 Kendell long. TIARA Coombs was notified on 12/21/21. The attending pathologist who signature mansoor ears on this report has reviewed all diagnostic slides and has edited t he gross and/or microscopic portion of this report in rendering the final pathologic diagnosis. [address] [address] CPT: 46180 /emely/ NIURKA Yeung MD Signed Dec 21, 2021@11:46 Performing Laboratory: Surgical Pathology Report Performed By: [facility] [CLIA# [id number]] [address] [place] [address] $FTR - - - - - [...] - - LUCAS MEEK STANDARD FORM 515 ID:[id number] SEX:M :1950 AGE: 71 LOC: SDM END PCP: Isatu Todd /charmaine Yeung MD Signed: 12/21/2021 11:46 Dec 06, 2021 03:30 PM LR MICROBIOLOGY REPORT: [facility] Reporting Lab: [facility] [CLIA# [id number]] [address] [place] [address] Accession [UID]: [id number] [[id number]] Receiv ed: Dec 06, 2021@16:14 Collection sample: BLOOD CUL T BOTTLE(NIRMAL/AERO)Collection date: Dec 06, 2021 15:30 Site/Specimen: BLOOD Provider: JELANI SÁNCHEZ Comment on specimen: LAC Test(s) ordered: BLOOD CULTURE ANAEROBI C....... completed: Dec 12, 2021 06:18 * BACTERIOLOGY FINAL REPORT => Dec 12, 2021 06:1 8 TECH CODE: [id number] Bacteriology Remark(s): NO GROWTH IN 5 DAYS =--=--=--=--=--=--=--=--=--=--=--=--=--= --=--=--=--=--=--=--=--=--=--=--=--=-- Performing Laboratory: Bacteriology Report Performed By: [facility] [CLIA# [id number]] [address] [place] [address] Dec 06, 2021 03:30 PM LR MICROBIOLOGY REPORT: [facility] Reporting Lab: [facility] [CLIA# [id number]] [address] [place] [address] Accession [UID]: [id number] [[id number]] Receiv ed: Dec 06, 2021@16:14 Collection sample: BLOOD CUL T BOTTLE(NIRMAL/AERO)Collection date: Dec 06, 2021 15:30 Site/Specimen: BLOOD Provider: JELANI SÁNCHEZ Comment on specimen: LAC Test(s) ordered: BLOOD CULTURE AEROBIC. ........ completed: Dec 12, 2021 06:17 * BACTERIOLOGY FINAL REPORT => Dec 12, 2021 06:1 7 TECH CODE: 60035 Bacteriology Remark(s): NO GROWTH IN 5 DAYS =--=--=--=--=--=--=--=--=--=--=--=--=--= --=--=--=--=--=--=--=--=--=--=--=--=-- Performing Laboratory: Bacteriology Report Performed By: [facility] [CLIA# [id number]] [address] [place] [address]
--- OUTSIDE RECORDS SUMMARY | 2022-01-19 08:40 | XMS_ITS ---
DAILY HOSPITALIZATION DATA [facility] Encounter Summary Created on:December 12, 2021 Patient:LUCAS MEEK Sex:Male :1950 Author Organization [facility] Address [address] [place] [id number] Support Name Relationship Address Phone YUSRA MEEK Unavailable [address] [place] [address] YUSRA MEEK Unavailable [address] [place] [facility] [address] CLAY MOSLEY Unavailable Unavailable SJ SANTACRUZ Unavailable [...] MEDICARE MEDICARE PART Jun 18, PART A [id number] DO KALYANI PATIENT (WNR) (M) A 2016 13A 1 UGLAS MEDICARE MEDICARE PART Jun 18, PART B [id number] DO KALYANI PATIENT (WNR) (M) B 2016 13A 1 [place]AS MEDICARE MEDICARE PART Jun 18, PART A [id number] KALYANIDO PATIENT (WNR) (M) A 2017 VH81 2 [place]AS MEDICARE MEDICARE PART Jun 18, PART B [id number] DO KALYANI PATIENT (WNR) (M) B 2017 VH81 2 [place]AS UNITED MEDICARE MCR(Jun 18 [id number] Luz MEEK PATIENT HEALTHCARE ADVANTAGE NR) 2021 37 0 [facility] (WNR) Selected Encounter This section includes the information on record at [place] for the Encounter. Date/Time Encounter Type Encounter Description Reason Provider Source Dec 12, 2021 07:36 Inpatient Visit DAILY HOSPITALIZATION DATA PM IHE Encounter Template Text not used by [place] Plan of Treatment: Future Appointments (+ 6 months) and Future Tests (+/- 45 days) The Plan of Treatment section includes future care activities for the patient from all [place] treatmentfacilities. This section includes future appointments and future orders which are active, pending orscheduled.Future Appointments This section includes appointments that were scheduled to occur 6 months from the date of the Encounter, up to a maximum of 20 appointments. The data comes from all [place] treatment facilities. Appointment Date/Time Appointment Type Appointment Facili ty Name Dec 21, 2021 08:00 AM AM[place] [facility] Jan 06, 2022 02:00 PM [place] [facility] Jan 10, 2022 11:30 AM [facility] Jan 24, 2022 08:00 [place] [facility] Feb 21, 2022 10:00 AM [place] [facility] Mar 21, 2022 10:30 AM [facility]IC[facility] Active, Pending, and Scheduled [...] the Encounter. The data comes from all [place] treatment [facility]. Test Date/Time Test Type Test Details Facility Name October 31, 2021 07:37 AM Consult Order [facility]ITY CARE-EGD [facility] Cons Project Control Manager's Choice November 15, 2021 10:37 AM Consult Order [facility] CARE-PODIATRY Cons Project Control Manager's Choice Dec 06, 2021 12:52 PM Pharmacy [place] Infusion Order [facility] Dec 06, 2021 03:24 PM Pharmacy [place] [facility] Dec 06, 2021 03:40 PM [place]acy [place] [facility] Dec 15, 2021 08:41 AM Consult Order SPEECH PATHOLOGY [place] OUT[place] Cons [facility] Project Control Manager's Choice Jan 15, 2022 10:08 PM Consult Order [facility] CARE-PALLIATIVE CARE Cons Project Control Manager's Choice Lab Results: +/- 30 days [...] Reference Range Comment Dec 15, 2021 [place] P4 GLU,BUN,CREAT,LYTES,CA Speci men Type: PLASMA 06:43 AM [facility] Comment: Tests performed on Audio Network (405) SN:[id number] Ordering Provid er: ISATU TODD Report Released Date/Time: Dec 11, 2021 07:42 AM Reporting Lab: [facility] T [facility] [address] [facility] [address] Performing Lab: [facility] [address] [facility] [address] UREA NITROGEN 9 7-25 SODIUM 137 135-145 POTASSIUM 3.8 3.5-5.0 CHLORIDE 105 100-110 CARBON DIOXIDE 26 20-30 ANION GAP 6 4-16 GLUCOSE 102 H 65-100 CREATININE 0.64 0.5-1.5 CALCIUM 8.1 L 8.5-10.5 eGFR(CKD-EPI 2020) >90.0 >60 Dec 15, 2021 06:43 AM [place] [facility] CBC PROFILE Sp ecimen Type: BLOOD No comment enter ed. Ordering Provid er: ISATU TODD Report Released Date/Time: Dec 10, 2021 07:22 AM Reporting Lab: [facility] [address] [facility] [address] Performing Lab: [facility] [address] [facility] [address] WBC 5.7 4.5-11.0 RBC 4.22 L 4.23-5.66 [...] ABSOLUTE NRBC 0.00 0-0 Dec 14, 2021 [facility] CYTOGENETIC Specimen Type: ESOPHAGUS 02:59 PM [facility]) Comment: ~For T est: CYTOGENETIC FISH([facility]) ~FISH HER 2 NUE, FFPE See full report in Ticketfly Image display viewer/tab#LAB-Reference Ordering Provid er: NIURKA MILLER Report Released Date/Time: Dec 21, 2021 12:11 PM Reporting Lab: [facility] [address] [facility] [address] Performing Lab: [facility] CYTOGENETIC FISH([facility]) comment Dec 14, 2021 [facility] P4 GLU,BUN,CREAT,LYTES,CA Speci men Type: PLASMA 06:27 AM [facility] Comment: Tests performed on Audio Network (405) SN:[id number] Ordering Provid er: ISATU TODD Report Released Date/Time: Dec 11, 2021 07:42 AM Reporting Lab: [facility] [address] [facility] [address] Performing Lab: [facility] [address] [facility] [address] UREA NITROGEN 10 7-25 SODIUM 137 135-145 [...] [facility] [address] [facility] [address] Performing Lab: [facility] [address] [facility] [address] WBC 6.0 4.5-11.0 RBC 4.29 4.23-5.66 HGB [...] ABSOLUTE NRBC 0.00 0-0 Dec 13, 2021 [facility] P4 GLU,BUN,CREAT,LYTES,CA Speci men Type: PLASMA 06:34 AM [facility] Comment: Tests performed on Audio Network (405) SN:[id number] Ordering Provid er: ISATU TODD Report Released Date/Time: Dec 11, 2021 07:42 AM Reporting Lab: [facility] [address] [facility] [address] Performing Lab: [facility] [address] [facility] [address] UREA NITROGEN 12 7-25 SODIUM 136 135-145 [...] [facility] [address] [facility] [address] Performing Lab: [facility] [address] [facility] [address] WBC 5.6 4.5-11.0 RBC 4.28 4.23-5.66 HGB [...] ABSOLUTE NRBC 0.00 0-0 Dec 12, 2021 [facility] P4 GLU,BUN,CREAT,LYTES,CA Speci men Type: PLASMA 06:21 AM [facility] Comment: Tests performed on Audio Network (405) SN:[id number] Ordering Provid er: ISATU TODD Report Released Date/Time: Dec 11, 2021 07:42 AM Reporting Lab: [facility] [address] [facility] [address] Performing Lab: [facility] [address] [facility] [address] UREA NITROGEN 11 7-25 SODIUM 139 135-145 [...] Dec 10, 2021 07:22 AM Reporting Lab: [facility] [address] [facility] [address] Performing Lab: [facility] [address] [facility] [address] WBC 5.5 4.5-11.0 RBC 4.37 4.23-5.66 HGB [...] 0.00 0-0 Dec 12, 2021 06:00 AM DigitilitiT [facility] MAGNESIUM Sp ecimen Type: PLASMA Comment: Testin g Performed on Audio Network (405) SN:[id number] Ordering Provid er: ISATU TODD Report Released Date/Time: Dec 12, 2021 08:24 AM Reporting Lab: [place] [facility] [address] [facility] [address] Performing Lab: [facility] [place] [facility]T Eptica[facility] [address] [facility] [address] MAGNESIUM 1.8 1.6-2.6 Dec 12, 2021 06:00 AM DigitilitiT EpticaMROC PHOSPHORUS Sp ecimen Type: PLASMA Comment: Testin g Performed on Audio Network (405) SN:[id number] Ordering Provid er: ISATU TODD Report Released Date/Time: Dec 12, 2021 08:24 AM Reporting Lab: [place] [facility]T [facility] [address] [facility] [address] Performing Lab: [place] [facility]T [facility] [address] [facility] [address] PHOSPHORUS 3.1 2.5-5.0 Dec 11, 2021 06:15 AM [facility] [place] TimecrosT EpticaMROC ELECTROLYTES Sp ecimen Type: PLASMA Comment: Tests performed on Audio Network (405) SN:[id number] Ordering Provid er: ISATU TODD Report Released Date/Time: Dec 10, 2021 07:22 AM Reporting Lab: [place] [facility] [address] [facility] [address] Performing Lab: [place] [facility]crosT [facility] [address] [facility] [address] SODIUM 137 135-145 POTASSIUM 4.3 3.5-5.0 CHLORIDE 108 100-110 CARBON DIOXIDE 20 20-30 ANION GAP 9 4-16 Dec 11, 2021 06:15 AM [place] [employer] [facility] CBC PROFILE Sp ecimen Type: BLOOD Comment: Result s checked Ordering Provid er: ISATU TODD Report Released Date/Time: Dec 10, 2021 07:22 AM Reporting Lab: [place] OMEGAT [facility] [address] [facility] [address] Performing Lab: [facility] [place] OMEGAT [facility] [address] [facility] [address] WBC 5.8 4.5-11.0 RBC 4.37 4.23-5.66 HGB [...] 0.00 0-0 Dec 11, 2021 06:00 AM [facility] PHOSPHORUS Sp ecimen Type: PLASMA Comment: Tests performed on Audio Network (603) SN:[id number] Results checked Ordering Provid er: ISATU TODD Report Released Date/Time: Dec 11, 2021 07:44 AM Reporting Lab: [facility] DU[facility] [address] [facility] [address] Performing Lab: [place] OMEGAT [facility] [address] [facility] [address] PHOSPHORUS 3.0 2.5-5.0 Dec 10, 2021 08:05 AM [place] [facility] MAGNESIUM Sp ecimen Type: PLASMA Comment: [place] [id number] on Dec 10, 2021@08:31 Tests performed on Audio Network (405) SN:[id number] Ordering Provid er: ISATU TODD Report Released Date/Time: Dec 10, 2021 07:22 AM Reporting Lab: [place] [facility] [address] [facility] [place] [address] Performing Lab: [place] [facility] [address] [facility] [place] [address] MAGNESIUM 1.7 1.6-2.6 Dec 10, 2021 08:05 AM [place] [facility] PHOSPHORUS Sp ecimen Type: PLASMA Comment: [place] [id number] on Dec 10, 2021@08:31 Tests performed on Audio Network (405) SN:[id number] Ordering Provid er: ISATU TODD Report Released Date/Time: Dec 10, 2021 07:22 AM Reporting Lab: [place] [facility] [address] [facility] [place] [address] Performing Lab: [place] [facility] [address] [facility] [place] [address] PHOSPHORUS 1.8 L 2.5-5.0 Dec 10, 2021 08:05 AM [place] UREA NITROGEN Specimen Type: PLASMA [facility] Comment: [place] [id number] on Dec 10, 2021@08:31 Tests performed on Audio Network (405) SN:[id number] Ordering Provid er: ISATU TODD Report Released Date/Time: Dec 10, 2021 07:22 AM Reporting Lab: [place] [facility] [address] [facility] [place] [address] Performing Lab: [place] [facility] [address] [facility] [place] [address] UREA NITROGEN 8 7-25 Dec 10, 2021 08:05 AM [place] [facility] GLUCOSE Sp ecimen Type: PLASMA Comment: [place] [id number] on Dec 10, 2021@08:31 Tests performed on Audio Network (405) SN:[id number] Ordering Provid er: ISATU TODD Report Released Date/Time: Dec 10, 2021 07:22 AM Reporting Lab: [place] [facility] [address] [facility] [address] Performing Lab: [place] [facility] [address] [facility] [address] GLUCOSE 144 H 65-100 Dec 10, 2021 08:05 AM [place] [facility] ELECTROLYTES Sp ecimen Type: PLASMA Comment: [place] [id number] on Dec 10, 2021@08:31 Tests performed on Pham Dot Medical (405) SN:[id number] Ordering Provid er: ISATU TODD Report Released Date/Time: Dec 10, 2021 07:22 AM Reporting Lab: [place] [facility] [address] [facility] [address] Performing Lab: [place] [facility] [address] [facility] [address] SODIUM 139 135-145 POTASSIUM 3.7 3.5-5.0 CHLORIDE 107 100-110 CARBON DIOXIDE 24 20-30 ANION GAP 8 4-16 Dec 10, 2021 08:05 AM [place] [facility] CALCIUM Sp ecimen Type: PLASMA Comment: [place] [id number] on Dec 10, 2021@08:31 Tests performed on [employer] (405) SN:[id number] Ordering Provid er: ISATU TODD Report Released Date/Time: Dec 10, 2021 07:22 AM Reporting Lab: [place] [facility] [address] [facility] [address] Performing Lab: [place] [facility] [address] [facility] [address] CALCIUM 8.3 L 8.5-10.5 Dec 10, 2021 08:05 [place] CREATININE WITH eGFR Specime n Type: PLASMA AM [facility] PANEL Comment: [place] [id number] on Dec 10, 2021@08:31 Tests performed on Audio Network (405) SN:[id number] Ordering Provid er: ISATU TODD Report Released Date/Time: Dec 10, 2021 07:22 AM Reporting Lab: [place] [facility] [address] [facility] [address] Performing Lab: [place] [facility] [address] [facility] [address] CREATININE 0.78 0.5-1.5 eGFR(CKD-EPI 2020) >90.0 >60 Dec 10, 2021 08:05 AM [facility] CBC PROFILE Sp ecimen Type: BLOOD No comment enter ed. Ordering Provid er: ISATU TODD Report Released Date/Time: Dec 10, 2021 07:22 AM Reporting Lab: [place] OMEGAT [facility] [address] [facility] [address] Performing Lab: [place] OME[place] [facility] [address] [facility] [address] WBC 7.0 4.5-11.0 RBC 4.54 4.23-5.66 HGB [...] 0.00 0-0 Dec 09, 2021 06:46 AM [facility] MAGNESIUM Sp ecimen Type: PLASMA Comment: Tests performed on Audio Network (367) SN:[id number] Ordering Provid er: ISATU TODD Report Released Date/Time: Dec 08, 2021 10:23 AM Reporting Lab: [facility] [address] [facility] [address] Performing Lab: [facility] [address] [facility] [address] MAGNESIUM 1.6 1.6-2.6 Dec 09, 2021 [facility] P4 GLU,BUN,CREAT,LYTES,CA Speci men Type: PLASMA 06:46 AM [facility] Comment: Tests performed on Audio Network (405) SN:[id number] Ordering Provid er: ISATU TODD Report Released Date/Time: Dec 08, 2021 05:00 PM Reporting Lab: [facility] [address] [facility] [address] Performing Lab: [facility] [address] [facility] [address] UREA NITROGEN 6 L 7-25 SODIUM 134 [...] Dec 08, 2021 05:00 PM Reporting Lab: [facility] [address] [facility] [address] Performing Lab: [facility] [address] [facility] [address] WBC 7.1 4.5-11.0 RBC 4.40 4.23-5.66 HGB [...] 0.00 0-0 Dec 08, 2021 06:39 AM [place] [employer] T [facility] MAGNESIUM Sp ecimen Type: PLASMA Comment: Testin g Performed on Audio Network (405) SN:[id number] Ordering Provid er: ISATU TODD Report Released Date/Time: Dec 07, 2021 10:32 AM Reporting Lab: [facility] [address] [facility] [address] Performing Lab: [facility] [address] [facility] [address] MAGNESIUM 1.5 L 1.6-2.6 Dec 08, 2021 [place] [employer] T P4 GLU,BUN,CREAT,LYTES,CA Speci men Type: PLASMA 06:39 AM [facility] Comment: Testin g Performed on Audio Network (405) SN:[id number] Ordering Provid er: ISATU TODD Report Released Date/Time: Dec 07, 2021 10:32 AM Reporting Lab: [place] [facility] [address] [facility] [address] Performing Lab: [facility] [address] [facility] [address] UREA NITROGEN 6 L 7-25 SODIUM 136 135-145 POTASSIUM 3.3 L 3.5-5.0 CHLORIDE 104 100-110 CARBON DIOXIDE 22 20-30 ANION GAP 10 4-16 GLUCOSE 133 H 65-100 CREATININE 0.76 0.5-1.5 CALCIUM 8.4 L 8.5-10.5 eGFR(CKD-EPI 2020) >90.0 >60 Dec 08, 2021 06:39 AM [place] [employer]huddle T [facility] CBC PROFILE Sp ecimen Type: BLOOD No comment enter ed. Ordering Provid er: ISATU TODD Report Released Date/Time: Dec 07, 2021 10:32 AM Reporting Lab: [facility] [address] [facility] [address] Performing Lab: [facility] [address] [facility] WBC 8.4 [...] NRBC 0.00 0-0 Dec 07, 2021 06:42 [facility] LIVER PROFILE Specimen Typ e: PLASMA AM [facility] Comment: Tests performed on Audio Network (405 SN:[id number] Ordering Provid er: PORFIRIO WALTERS Report Released Date/Time: Dec 06, 2021 06:57 PM Reporting Lab: [facility] [address] [facility] [address] Performing Lab: [facility] [address] [facility] [address] PROTEIN, TOTAL 5.7 L 6.0-8.5 ALBUMIN 2.4 L 3.2-5.0 BILIRUBIN, TOTAL 0.4 0.2-1.2 ALKALINE PHOSPHATASE 109 40-150 ALT(SGPT) 10 7-52 AST(SGOT) 15 5-34 FIB-4 SCORE 1.92 <2.67 Dec 07, 2021 [facility] P[facility] GLU,BUN,CREAT,LYTES,CA Speci men Type: PLASMA 06:42 AM [facility] Comment: Tests performed on Audio Network (405) SN:[id number] Ordering Provid er: PORFIRIO WALTERS Report Released Date/Time: Dec 06, 2021 06:57 PM Reporting Lab: [place] [facility] [address] [facility] [address] Performing Lab: [place] [facility] [address] [facility] [address] UREA NITROGEN 9 7-25 SODIUM 135 135-145 POTASSIUM 3.5 3.5-5.0 CHLORIDE 103 100-110 CARBON DIOXIDE 22 20-30 ANION GAP 10 4-16 GLUCOSE 92 65-100 CREATININE 0.73 0.5-1.5 CALCIUM 8.0 L 8.5-10.5 eGFR(CKD-EPI 2020) >90.0 >60 Dec 07, 2021 06:42 AM [place] CBC PROFILE Specimen Type: BLOOD [facility] No comment enter ed. Ordering Provid er: PORFIRIO WALTERS Report Released Date/Time: Dec 06, 2021 06:57 PM Reporting Lab: [place] [facility] [address] [facility] [address] Performing Lab: [facility] [address] [facility] [address] WBC 5.7 4.5-11.0 RBC 4.15 L 4.23-5.66 [...] [facility] %) AUTOMATED Comment: Tests performed on Audio Network (405) SN:[id number] Ordering Provid er: ISATU TODD Report Released Date/Time: Dec 07, 2021 10:28 AM Reporting Lab: [place] [facility] [address] [facility] [address] Performing Lab: [place] [facility] [address] [facility] [address] RETICULOCYTES (%) AUTOMATED 1.23 0. 6-2.0 RETICULOCYTES (ABS) AUTOMATED 0.052 0.030-0.090 Dec 06, 2021 09:45 [place] MRSA SURVL NARES Specimen Ty pe: NARES PM [facility] DNA No comment enter ed. Ordering Provid er: ALVARO VARGHESE Report Released Date/Time: Dec 07, 2021 02:20 AM Reporting Lab: [place] [facility] [address] [facility] [address] Performing Lab: [place] [facility] [address] [facility] [address] MRSA SURVL NARES DNA NEGATIVE NEGATIVE Dec 06, 2021 06:00 [place] URINALYSIS W/REFLEX TO Speci men Type: URINE PM [facility] CULTURE No comment enter ed. Ordering Provid er: JELANI SÁNCHEZ Report Released Date/Time: Dec 06, 2021 11:57 AM Reporting Lab: [place] [facility] [address] [facility] [address] Performing Lab: [place] [facility] [address] [facility] [address] URINE COLOR Arlin YELLOW SPECIFIC GRAVITY 1.029 [...] 21, R[place] VARIANT Comment: https://www.cdc.gov/coronavirus/2019-ncov/cases-updates/variant- surveillance/variant-info.html The [employer] SARS CoV 2 [employer] Assay-GX is a next-generation sequencing (NGS) assa 2021 [facility] SEQUENCING y that determine s the complete genome sequence of the SARS-CoV-2 virus. The assay contains variant-tolerant primers to broaden and improve the coverage for variant detection and increase the sensitivity 12:00 [facility] PNL(WH) of the panel to enable detection from lower viral titer samples. The assay is run on the GetOutfitted Sequencer, which performs automated library preparation, sequencing, analysis, and reporting. PM The sequence an alysis includes determination of viral phylogenetic lineage by comparison to the reference strain Wuhan-Hu-1, GenBank: [id number]. Sequence determination may not be possible owing [...] Dec 06, 2021 01:13 PM Reporting Lab: [place] [facility] [address] [facility] [address] Performing Lab: [facility] [address] [facility] [address] SARS-CoV-2 CLADE() 22C (OMICRON) SARS-CoV-2 LINEAGE() BA.2.12.1 Dec 06, 2021 12:00 [facility] COVID-19 AG SCREEN Specimen Type: NASAL CAVITY PM [facility] PANEL BINAX(405) Comment: Testi ng Performed By: Mike Briscoe Ordering Provid er: JELANI SÁNCHEZ Report Released Date/Time: Dec 08, 2021 08:23 AM Reporting Lab: [place] [facility] [address] [facility] [address] Performing Lab: [facility] [address] [facility] [address] COVID-19 AG SCRN(wrj BINAX) POSITIVE HH NE G Dec 06, 2021 12:00 PM [facility] TROPONIN II Sp ecimen Type: PLASMA Comment: Tests performed on Pham Ironworker Machine Operator (405) SN:[id number] Ordering Provid er: JELANI SÁNCHEZ Report Released Date/Time: Dec 06, 2021 11:57 AM Reporting Lab: [place] [facility] [address] [facility] [place] [address] Performing Lab: [place] [facility] [address] [facility] [address] TROPONIN II 0.03 0.00-0.29 Dec 06, 2021 12:00 PM [facility] BNP(P) Sp ecimen Type: PLASMA Comment: Tests performed on Pham [employer]worker Machine Operator (405) SN:[id number] Ordering Provid er: JELANI SÁNCHEZ Report Released Date/Time: Dec 06, 2021 11:57 AM Reporting Lab: [place] [facility] [address] [facility] [address] Performing Lab: [place] [facility] [address] [facility] [address] BNP(P) 224.8 H 10-100 Dec 06, 2021 [place] P4 GLU,BUN,CREAT,LYTES,CA Speci men Type: PLASMA 12:00 PM [facility] Comment: Testin g Performed on Pham [employer]worker Machine Operator (405) SN:[id number] Ordering Provid er: JELANI SÁNCHEZ Report Released Date/Time: Dec 06, 2021 11:57 AM Reporting Lab: [facility] [address] [facility] [address] Performing Lab: [facility] [address] [facility] [address] UREA NITROGEN 13 7-25 SODIUM 138 135-145 POTASSIUM 3.8 3.5-5.0 CHLORIDE 103 100-110 CARBON DIOXIDE 23 20-30 ANION GAP 12 4-16 GLUCOSE 105 H 65-100 CREATININE 0.90 0.5-1.5 CALCIUM 8.7 8.5-10.5 eGFR(CKD-EPI 2020) >90.0 >60 Dec 06, 2021 12:00 PM [facility] LIVER PROFILE Sp ecimen Type: PLASMA Comment: Testin g Performed on Pham Ironworker Machine Operator (405) SN:[id number] Ordering Provid er: JELANI SÁNCHEZ Report Released Date/Time: Dec 06, 2021 11:57 AM Reporting Lab: [facility] [address] [facility] [address] Performing Lab: [facility] [address] [facility] [address] PROTEIN, TOTAL 6.6 6.0-8.5 ALBUMIN 2.8 L 3.2-5.0 BILIRUBIN, TOTAL 0.6 0.2-1.2 ALKALINE PHOSPHATASE 134 40-150 ALT(SGPT) 13 7-52 AST(SGOT) 18 5-34 FIB-4 SCORE 1.94 <2.67 Dec 06, 2021 [facility] COVID-19+FLU/RSV DIAGNOSTIC Spe cimen Type: NASOPHARYNX 12:00 PM [facility] PANEL(405) Comment: Tests performed on [employer] Genexpert (405) Critical results called to and read back by: ALESHIA WILKINSON RN 12/06/21 @ 1312 Ordering Provid er: JELANI SÁNCHEZ Report Released Date/Time: Dec 06, 2021 11:57 AM Reporting Lab: [facility] [address] [facility] [address] Performing Lab: [facility] [address] [facility] [address] FLU A(PCR) NEGATIVE NEGATIVE FLU B(PCR) NEGATIVE NEGATIVE RSV(PCR) NEGATIVE NEGATIVE COVID-19([id number]) DETECTED HH NO T DETECTED Dec 06, 2021 12:00 PM [facility] CBC PROFILE Sp ecimen Type: BLOOD No comment enter ed. Ordering Provid er: JELANI SÁNCHEZ Report Released Date/Time: Dec 06, 2021 11:57 AM Reporting Lab: [facility] [address] [facility] [address] Performing Lab: [facility] [address] [facility] [address] WBC 7.2 4.5-11.0 RBC 4.86 4.23-5.66 HGB [...] 2021 07:43 /min mm[Hg] RIVER PM T [facility] Dec 12, 0 WHITE 2021 07:37 RIVER PM [place] [facility] Dec 12, 0 WHITE 2021 02:17 RIVER PM T [facility] Dec 12, 98 F 82 127/76 18 /min 97 % WHITE 2021 02:01 /min mm[Hg] RIVER PM T [facility] Dec 12, 0 2021 10:59 RIVER AM [facility] Social History: Smoking Status (Most current) and Tobacco Use (All prior to encounter date) This section includes the most current, and the historical, smoking and tobacco-related health factors from the [place] facility where the Encounter took place.Current Smoking Status This section includes the most current smoking, or tobacco-related health factor, from the [place] facility where the Encounter took place. Date/Time Current Smoking Status Comment Facility Dec 06, 2021 11:40 AM QUIT TOBACCO USE > 7 YEARS AGO [facility] Tobacco Use History This section includes a history of the smoking, or tobacco- related health factors, that were collected on or before the date of the Encounter. The data comes from the [place] facility where the Encounter took place. Date/Time Smoking Status/Tobacco Use Comment [facility] Apr 01, 2020 01:16 PM QUIT TOBACCO USE 1-7 YEARS AGO [facility] Mar 24, 2020 03:00 PM QUIT TOBACCO USE 1-7 YEARS AGO [facility] Feb 21, 2019 04:11 PM QUIT TOBACCO USE 1-7 YEARS AGO [facility] Feb 20, 2019 03:38 PM QUIT TOBACCO USE 1-7 YEARS AGO [facility] Feb 03, 2019 09:50 AM QUIT TOBACCO USE 1-7 YEARS AGO [facility] May 25, 2016 11:53 PM QUIT TOBACCO USE IN PAST YEAR [facility] May 23, 2016 06:57 PM [...] the Encounter. The data comes from all [place] treatment facilities. Date/Time Radiology Report Provider Source Dec 13, 2021 12:57 PM MRI ABDOMEN W/WO CONTRAST: MARYELLEN LONG LUCAS LARES N [id number] -1950 [facility] Exm Date: DEC 13, 2021@12:57 Req Phys: ISATU TODD Loc: OP Unknown/0 12-15-2021@13:20 Img Loc: MRI IMAGING (OOS) Service: ZZGENERAL MEDICINE (Case [id number] COMPLETE) MRI ABDOMEN W/WO CONTRAST (M RI Detailed) CPT:77179 Reason for Study: further characterization of a [...] new lyphadenopathy REQUESTING MD: Isatu Todd PAGER: [phone] PHONE: [phone] Weight: 232.2 lb [105.32 kg] (12/12/2021 05:00) [...] patient will need to arrange for a frontload driver to take him/her home after the [...] 15, 2021 Date Verified: DEC 15, 2021 Manager Sourcing E-Sig:/ES/MARYELLEN LONG Report: MRI ABDOMEN W/WO CONTRAST [...] MALIGNANCY Primary Interpreting Staff: MARYELLEN LONG Staff (Manager Sourcing) / Dec 10, 2021 09:[address] ABDOMEN & PELVIS: [facility]IDE [facility] BENITA MEEKLAS N [id number] -1950 [facility] Ex Date: DEC 10, 2021@09:30 Req Phys: ISATU TODD Loc: 1S MED/12-10@10:57 Img Loc: CT SCAN (OOS) Service: [facility] MEDICINE (Case [id number] COMPLETE) CT ABD & PELVIS WITHOUT CONT RAST (CT Detailed) CPT:32490 Reason for Study: 71 yo male with [...] INDEX - NO HEIGHTS FOUND Pager number: [phone] STAT orders MUST be call ed to RADIOLOGY [phone] to speak to the appropriate survey and mapping technician. Report Status: Verified Date Reported: DEC 10, 2021 Date Verified: DEC 10, 2021 Manager Sourcing E-Sig: Report: EXAM: CT abdomen and pelvis [...] ph nodes. READING PHYSICIAN: Ramone Munoz D.O. -[phone] 12/10/2021 10:55 EDT [facility] National Teleradiology Program [phone] (For Medical Practitioner Use Only ) [address], [address] [place] [address] Attention Patients / Veterans: If you have ques tions or concerns about these test results, please contact your o rdering provider or primary care team. Primary Diagnostic Code: SIGNIFICANT ABNORMALIT Y, ATTN NEEDED Primary Interpreting Staff: RADIOLOGY,OUTSIDE SERVICE, Staff Physician / Dec 09, 2021 07:34 AM BASW (MODIFIED): JESSIE CHENEY TARA ER JCLUCAS LARES N [id number] -1950 [facility] Exm Date: DEC 09, 2021@07:34 Req Phys: PEYTONISATU Manjarrez Loc: 1S MED/12-09@11:26 Img Loc: XRAY (OOS) Service: [facility] MEDICINE (Case [id number] COMPLETE) BASW (MODIFIED) (RAD Detaile d) CPT:60239 Contrast Media : Barium Reason for Study: dysphagia ?esophageal spasm Clinical History: Report Status: Verified Date Reported: DEC 09, 2021 Date Verified: DEC 09, 2021 Manager Sourcing E-Sig:/ES/JESSIE CHENEY Report: BASW (MODIFIED) , 12/09/2021 [...] REQUIRED Primary Interpreting Staff: JESSIE CHENEY, RADIOLOGIST (Manager Sourcing) /TLC Dec 06, 2021 12:[address] CHEST (INCLUDES ADRENALS): JESSIE CHENEY LUCAS LARES N [id number] -1950 M [facility] Exm Date: DEC 06, 2021@12:59 Req Phys: JELANI SÁNCHEZ Pat Loc: [facility] ED DAYS M 1RD (Req'g Loc) Img Loc: CT SCAN (OOS) Service: Unknown (Case [id number] COMPLETE) CT THORAX W/O CONT (CT Detai led) CPT:51968 Reason for Study: Opacification right chest Clinical History: No contrast allergy BUN: 13 (12/06/21 12:00) CREATI: 0.90 (12/06/21 12:00) eGFR 05/16/21 09:43 52 L Weight: 232.6 lb [105.51 kg] (12/06/2021 11:40) BODY MASS INDEX - NO HEIGHTS FOUND Pager number: [phone] STAT orders MUST be called t o RADIOLOGY [phone] to speak to the appropriate survey and mapping technician. Indications - Other: Opacification right chest, covid positive, lung cancer histo Report Status: Verified Date Reported: DEC 06, 2021 Date Verified: DEC 06, 2021 Manager Sourcing E-Sig:/ES/JESSIE CHENEY Report: CT THORAX W/O CONT [...] REQUIRED Primary Interpreting Staff: JESSIE CHENEY, RADIOLOGIST (Manager Sourcing) Primary Interpreting Resident: PRINCE CHAMPION, Resident /BR Dec 06, 2021 11:58 AM CHEST SINGLE VIEW: JESSIE CHENEY DOUGLAS N [id number] -1950 [facility] Exm Date: DEC 06, 2021@11:58 Req Phys: GONZALO,JELANI Link Pat Loc: [facility] ED DAYS M 1RD (Req'g Loc) Img Loc: XRAY (OOS) Service: Unknown (Case [id number] COMPLETE) CHEST SINGLE VIEW (RAD Detai led) CPT:19802 Proc Modifiers : PORTABLE EXAM Reason for Study: SOB, home covid test positive Clinical History: Report Status: Verified Date Reported: DEC 06, 2021 Date Verified: DEC 06, 2021 Manager Sourcing E-Sig:/ES/JESSIE CHENEY Report: Exam type: Chest x-ray [...] REQUIRED Primary Interpreting Staff: JESSIE CHENEY, RADIOLOGIST (Manager Sourcing) /TLC Pathology Reports: +/- 30 days of [...] the Encounter. The data comes from all [place] treatment facilities. Date/Time Pathology Report Provider Source Jan 03, 2022 10:28 AM LR SURGICAL PATHOLOGY REPORT: STEFANY MILLER LOCAL TITLE: LR SURGICAL PATHOLOGY REPORT [facility] STANDARD TITLE: PATHOLOGY REPORT DATE OF NOTE: JAN 03, 2022@10:28:01 ENTRY DATE: JAN 03, 2022@10:28:01 AUTHOR: NIURKA MILLER EXP COSIGNER: URGENCY: STATUS: COMPLETED $APHDR Reporting Lab: [facility] [CLIA# [id number]] [address] [place] [address] - - - - - - [...] automatically d ocumented from SURGERY package case #[id number] Field (#32) PRINCIPAL PRE-OP DIAGNOSIS, (#.72) OTHER [...] automatically d ocumented from SURGERY package case #[id number] Field (#34) PRINCIPAL POST-OP DIAG, (#.74) OTHER [...] Label: Lucas Meek Paperwork: Lucas Meek Cassette: [id number];..;KALYANI;.;405;[id number] Specimen is labeled: ES bx Received in formalin are several pieces of pale boyd and brown tissue, 1.2 x 0.7 cm in aggregate. Submitted entirely in 1 cassette [id number];..;KALYANI;.;405;[id number] SAW 12/15/2021 Microscopic exam: *+* MODIFIED REPORT *+* (Last modified: JAN 03, 2022@09:30:20 typed by NIURKA WADDELL) DIAGNOSIS: A. 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 Kendell long. TIARA Coombs was notified on 12/21/21. Modified on 01/03/22 to include report from [facility] stating that tumor is NEGATIVE for her2/ matheus amplification. The attending pathologist who signature mansoor ears on this report has reviewed all diagnostic slides and has edited t he gross and/or microscopic portion of this report in rendering the final pathologic diagnosis. [address] [address] CPT: 16828 /emely/ NIURKA Yeung MD Signed Jan 03, 2022@10:28 Performing Laboratory: Surgical Pathology Report Performed By: [facility] [CLIA# [id number]] [address] [place] [id number] $FTR - - - - - [...] - - LUCAS MEEK STANDARD FORM 515 ID:[id number] SEX:M :1950 AGE: 71 LOC: SDM END PCP: Isatu Todd /emely/ NIURKA MILLER Staff Signed: 01/03/2022 10:28 Dec 21, 2021 11:46 AM LR SURGICAL PATHOLOGY REPORT: STEFANY MILLER [facility] LOCAL TITLE: LR SURGICAL PATHOLOGY REPORT [facility] STANDARD TITLE: PATHOLOGY REPORT DATE OF NOTE: DEC 21, 2021@11:46:59 ENTRY DATE: DEC 21, 2021@11:46:59 AUTHOR: NIURKA MILLER EXP COSIGNER: URGENCY: STATUS: COMPLETED $APHDR Reporting Lab: [facility] [CLIA# [id number]] [address] [place] [address] - - - - - - [...] automatically d ocumented from SURGERY package case #[id number] Field (#32) PRINCIPAL PRE-OP DIAGNOSIS, (#.72) OTHER [...] automatically d ocumented from SURGERY package case #[id number] Field (#34) PRINCIPAL POST-OP DIAG, (#.74) OTHER [...] Label: Lucas Meek Paperwork: Lucas Meek Cassette: [id number];..;KALYANI;.;405;[id number] Specimen is labeled: ES bx Received in formalin are several pieces of pale boyd and brown tissue, 1.2 x 0.7 cm in aggregate. Submitted entirely in 1 cassette [id number];..;KALYANI;.;405;[id number] SAW 12/15/2021 Microscopic exam: DIAGNOSIS: A. 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 Kendell long. TIARA Coombs was notified on 12/21/21. The attending pathologist who signature mansoor ears on this report has reviewed all diagnostic slides and has edited t he gross and/or microscopic portion of this report in rendering the final pathologic diagnosis. [address] [address] CPT: 50594 /emely/ NIURKA Yeung MD Signed Dec 21, 2021@11:46 Performing Laboratory: Surgical Pathology Report Performed By: [facility] [CLIA# [id number]] [address] [place] [address] $FTR - - - - - [...] - - LUCAS MEKE STANDARD FORM 515 ID:[id number] SEX:M :1950 AGE: 71 LOC: SDM END PCP: Isatu Todd /charmaine Yeung MD Signed: 12/21/2021 11:46 Dec 06, 2021 03:30 PM LR MICROBIOLOGY REPORT: [facility] Reporting Lab: [facility] [CLIA# [id number]] [address] [place] [address] Accession [UID]: [id number] [[id number]] Receiv ed: Dec 06, 2021@16:14 Collection sample: BLOOD CUL T BOTTLE(NIRMAL/AERO)Collection date: Dec 06, 2021 15:30 Site/Specimen: BLOOD Provider: JELANI SÁNCHEZ Comment on specimen: LAC Test(s) ordered: BLOOD CULTURE ANAEROBI C....... completed: Dec 12, 2021 06:18 * BACTERIOLOGY FINAL REPORT => Dec 12, 2021 06:1 8 TECH CODE: 25620 Bacteriology Remark(s): NO GROWTH IN 5 DAYS =--=--=--=--=--=--=--=--=--=--=--=--=--= --=--=--=--=--=--=--=--=--=--=--=--=-- Performing Laboratory: Bacteriology Report Performed By: [facility] [CLIA# [id number]] [address] [place] [address] Dec 06, 2021 03:30 PM LR MICROBIOLOGY REPORT: [facility] Reporting Lab: [facility] [CLIA# [id number]] [address] [place] [address] Accession [UID]: [id number] [[id number]] Receiv ed: Dec 06, 2021@16:14 Collection sample: BLOOD CUL T BOTTLE(NIRMAL/AERO)Collection date: Dec 06, 2021 15:30 Site/Specimen: BLOOD Provider: JELANI SÁNCHEZ Comment on specimen: LAC Test(s) ordered: BLOOD CULTURE AEROBIC. ........ completed: Dec 12, 2021 06:17 * BACTERIOLOGY FINAL REPORT => Dec 12, 2021 06:1 7 TECH CODE: 66183 Bacteriology Remark(s): NO GROWTH IN 5 DAYS =--=--=--=--=--=--=--=--=--=--=--=--=--= --=--=--=--=--=--=--=--=--=--=--=--=-- Performing Laboratory: Bacteriology Report Performed By: [facility] [CLIA# [id number]] [address] [place] [address]
--- OUTSIDE RECORDS SUMMARY | 2022-01-19 08:40 | XMS_ITS ---
DAILY HOSPITALIZATION DATA [facility] Encounter Summary Created on:December 12, 2021 Patient:LUCAS MEEK Sex:Male :1950 Author Organization [facility] Address [address] [place] [id number] Support Name Relationship Address Phone YUSRA MEEK Unavailable [address] [place] [address] YUSRA MEEK Unavailable [address] [place] [facility] [place] [address] CLAY MOSLEY Unavailable Unavailable SJ SANTACRUZ Unavailable [...] MEDICARE MEDICARE PART Jun 18, PART B [id number] DO KALYANI PATIENT (WNR) (M) B 2016 13A 1 UGLAS MEDICARE MEDICARE PART Jun 18, PART A [id number] DO KALYANI PATIENT (WNR) (M) A 2017 VH81 2 LAS MEDICARE MEDICARE PART Jun 18, PART A [id number] KALYANIDO PATIENT (WNR) (M) A 2016 13A 1 UGLAS MEDICARE MEDICARE PART Jun 18, PART B [id number] DO KALYANI PATIENT (WNR) (M) B 2017 VH81 2 UGLAS UNITED MEDICARE MCR(Jun 18 [id number] Luz MEEK PATIENT HEALTHCARE ADVANTAGE NR) 2021 37 0 [facility] (WNR) Selected Encounter This section includes the information on record at [place] for the Encounter. Date/Time Encounter Type Encounter Description Reason Provider Source Dec 12, 2021 07:39 Inpatient Visit DAILY HOSPITALIZATION DATA PM IHE [...] 2022 10:00 AM AMBULATORY - SURGERY [place] [facility] Mar 21, 2022 10:30 AM [...] The data comes from all [place] treatment [facility]. Test Date/Time Test Type Test Details Facility Name October 31, 2021 07:37 AM Consult Order [facility]ARE-EGD [facility] Cons Manager Transmission's Choice November 15, 2021 10:37 AM Consult Order [facility] CARE-PODIATRY Cons Manager Transmission's Choice Dec 06, 2021 12:52 PM Pharmacy [...] [place] OUTPATIENT Cons [facility] Manager Transmission's Choice Jan 15, 2022 10:08 PM Consult Order [facility] CARE-PALLIATIVE CARE Cons Manager Transmission's Choice Lab Results: +/- 30 days of [...] Reference Range Comment Dec 15, 2021 [place] P4 GLU,BUN,CREAT,LYTES,CA Speci men Type: PLASMA 06:43 AM [facility] Comment: Tests performed on Xerographic Document Solutions (405) SN:[id number] Ordering Provid er: ISATU TODD Report Released Date/Time: Dec 11, 2021 07:42 AM Reporting Lab: [facility] T [facility] [address] [facility] [address] Performing Lab: [facility] [place] [facility] [address] [facility] [address] UREA NITROGEN 9 7-25 SODIUM 137 135-145 POTASSIUM 3.8 3.5-5.0 CHLORIDE 105 100-110 CARBON DIOXIDE 26 20-30 ANION GAP 6 4-16 GLUCOSE 102 H 65-100 CREATININE 0.64 0.5-1.5 CALCIUM 8.1 L 8.5-10.5 eGFR(CKD-EPI 2020) >90.0 >60 Dec 15, 2021 06:43 AM [place] [facility] [place] [facility] CBC PROFILE Sp ecimen Type: BLOOD No comment enter ed. Ordering Provid er: ISATU TODD Report Released Date/Time: Dec 10, 2021 07:22 AM Reporting Lab: [facility] T [facility] [address] [facility] [address] Performing Lab: [facility] [place] [facility] [address] [facility] [address] WBC 5.7 4.5-11.0 RBC 4.22 L 4.23-5.66 [...] Specimen Type: ESOPHAGUS 02:59 PM [facility] Comment: ~For T est: CYTOGENETIC FISH[place] ~FISH HER 2 NUE, FFPE See full report in panOpen Image display viewer/tab#LAB-Reference Ordering Provid er: NIURKA MILLER Report Released Date/Time: Dec 21, 2021 12:11 PM Reporting Lab: [facility] [address] [facility] [address] Performing Lab: [facility] CYTOGENETIC FISH[place] comment Dec 14, 2021 [facility] P4 GLU,BUN,CREAT,LYTES,CA Speci men Type: PLASMA 06:27 AM [facility] Comment: Tests performed on Xerographic Document Solutions (405) SN:[id number] Ordering Provid er: ISATU TODD Report Released Date/Time: Dec 11, 2021 07:42 AM Reporting Lab: [facility] [address] [facility] [address] Performing Lab: [facility] [address] [facility] [address] UREA NITROGEN 10 7-25 SODIUM 137 135-145 [...] AM Reporting Lab: [facility] [address] [facility] [address] Performing Lab: [facility] [address] [facility] [address] WBC 6.0 4.5-11.0 RBC 4.29 4.23-5.66 HGB [...] [facility] Comment: Tests performed on Xerographic Document Solutions (405) SN:[id number] Ordering Provid er: ISATU TODD Report Released Date/Time: Dec 11, 2021 07:42 AM Reporting Lab: [facility] [address] [facility] [address] [facility] [address] [facility] [address] UREA NITROGEN 12 7-25 SODIUM 136 135-145 [...] AM Reporting Lab: [facility] [address] [facility] [address] Performing Lab: [facility] [address] [facility] [address] WBC 5.6 4.5-11.0 RBC 4.28 4.23-5.66 HGB [...] [facility] Comment: Tests performed on Xerographic Document Solutions (405) SN:[id number] Ordering Provid er: ISATU TODD Report Released Date/Time: Dec 11, 2021 07:42 AM Reporting [facility]: [facility] [address] [facility] [address] Per[facility]: [facility] [address] [facility] [address] UREA NITROGEN 11 7-25 SODIUM 139 135-145 [...] AM Reporting Lab: [facility] [address] [facility] [address] [facility]: [facility] [address] [facility] [address] WBC 5.5 4.5-11.0 RBC 4.37 4.23-5.66 HGB [...] 0.00 0-0 Dec 12, 2021 06:00 AM [employer] [facility] MAGNESIUM Sp ecimen Type: PLASMA Comment: Testin g Performed on Xerographic Document Solutions (405) SN:[id number] Ordering Provid er: ISATU TODD Report Released Date/Time: Dec 12, 2021 08:24 AM Reporting Lab: [place] [employer] [facility] [address] [facility] [address] Performing Lab: [employer] [place] [facility] [address] [facility] [address] MAGNESIUM 1.8 1.6-2.6 Dec 12, 2021 06:00 AM [employer] [facility] PHOSPHORUS Sp ecimen Type: PLASMA Comment: Testin g Performed on Xerographic Document Solutions (405) SN:[id number] Ordering Provid er: ISATU TODD Report Released Date/Time: Dec 12, 2021 08:24 AM Reporting Lab: [place] [employer] [facility] [address] [facility] [address] Performing Lab: [place] [employer] [facility] [address] [facility] [address] PHOSPHORUS 3.1 2.5-5.0 Dec 11, 2021 06:15 AM [employer] [place] [facility]T [facility] ELECTROLYTES Sp ecimen Type: PLASMA Comment: Tests performed on Xer[employer] Document Solutions (405) SN:[id number] Ordering Provid er: ISATU TODD Report Released Date/Time: Dec 10, 2021 07:22 AM Reporting Lab: [place] [employer] [facility] [address] [facility] [address] Performing Lab: [place] [employer] [facility] [address] [facility] [address] SODIUM 137 135-145 POTASSIUM 4.3 3.5-5.0 CHLORIDE 108 100-110 CARBON DIOXIDE 20 20-30 ANION GAP 9 4-16 Dec 11, 2021 06:15 AM WHITE [employer] [facility] CBC PROFILE Sp ecimen Type: BLOOD Comment: Result s checked Ordering Provid er: ISATU TODD Report Released Date/Time: Dec 10, 2021 07:22 AM Reporting Lab: [place] [employer] [facility] [address] [facility] [address] Performing Lab: [place] [facility] [facility] [address] [facility] [address] WBC 5.8 4.5-11.0 RBC 4.37 4.23-5.66 HGB [...] ecimen Type: PLASMA Comment: Tests performed on Xerographic Document Solutions (075) SN:[id number] Results checked Ordering Provid er: ISATU TODD Report Released Date/Time: Dec 11, 2021 07:44 AM Reporting Lab: [facility] [facility] [address] [facility] [address] Performing Lab: [place] [facility]ME[employer] M[facility] [address] [facility] [address] PHOSPHORUS 3.0 2.5-5.0 Dec 10, 2021 08:05 AM [place] [facility] MAGNESIUM Sp ecimen Type: PLASMA Comment: [place] [id number] on Dec 10, 2021@08:31 Tests performed on Xerographic Document Solutions (405) SN:[id number] Ordering Provid er: ISATU TODD Report Released Date/Time: Dec 10, 2021 07:22 AM Reporting Lab: [place] [facility] [address] [place] [facility] [place] [address] Performing Lab: [place] [facility] [address] [place] [facility] [place] [address] MAGNESIUM 1.7 1.6-2.6 Dec 10, 2021 08:05 AM [place] [facility] PHOSPHORUS Sp ecimen Type: PLASMA Comment: [place] [id number] on Dec 10, 2021@08:31 Tests performed on Xerographic Document Solutions (405) SN:[id number] Ordering Provid er: ISATU TODD Report Released Date/Time: Dec 10, 2021 07:22 AM Reporting Lab: [place] [facility] [address] [place] [facility] [place] [address] Performing Lab: [place] [facility] [address] [place] [facility] [place] [address] PHOSPHORUS 1.8 L 2.5-5.0 Dec 10, 2021 08:05 AM [place] [facility] GLUCOSE Sp ecimen Type: PLASMA Comment: [place] [id number] on Dec 10, 2021@08:31 Tests performed on Xerographic Document Solutions (405) SN:[id number] Ordering Provid er: ISATU TODD Report Released Date/Time: Dec 10, 2021 07:22 AM Reporting Lab: [place] [facility] [address] [place] [facility] [place] [address] Performing Lab: [place] [facility] [address] [place] [facility] [place] [address] GLUCOSE 144 H 65-100 Dec 10, 2021 08:05 AM [place] UREA NITROGEN Specimen Type: PLASMA [facility] Comment: [place] [id number] on Dec 10, 2021@08:31 Tests performed on Xerographic Document Solutions (405) SN:[id number] Ordering Provid er: ISATU TODD Report Released Date/Time: Dec 10, 2021 07:22 AM Reporting Lab: [place] [facility] [address] [facility] [address] Performing Lab: [facility] [address] [facility] [address] UREA NITROGEN 8 7-25 Dec 10, 2021 08:05 AM [facility] CBC PROFILE Sp ecimen Type: BLOOD No comment enter ed. Ordering Provid er: ISATU TODD Report Released Date/Time: Dec 10, 2021 07:22 AM Reporting Lab: [facility] [address] [facility] [address] Performing Lab: [facility] [address] [facility] [address] WBC 7.0 4.5-11.0 RBC 4.54 4.23-5.66 HGB [...] 0.00 0-0 Dec 10, 2021 08:05 AM [facility] ELECTROLYTES Sp ecimen Type: PLASMA Comment: [place] [id number] on Dec 10, 2021@08:31 Tests performed on Xerographic Document Solutions (405) SN:[id number] Ordering Provid er: ISATU TODD Report Released Date/Time: Dec 10, 2021 07:22 AM Reporting Lab: [place] [facility] [address] [facility] [address] Performing Lab: [place] [facility] [address] [facility] [address] SODIUM 139 135-145 POTASSIUM 3.7 3.5-5.0 CHLORIDE 107 100-110 CARBON DIOXIDE 24 20-30 ANION GAP 8 4-16 Dec 10, 2021 08:05 AM [place] [facility] CALCIUM Sp ecimen Type: PLASMA Comment: [place] [id number] on Dec 10, 2021@08:31 Tests performed on [employer] (405) SN:[id number] Ordering Provid er: ISATU TODD Report Released Date/Time: Dec 10, 2021 07:22 AM Reporting Lab: [place] [facility] [address] [facility] [address] Performing Lab: [place] [facility] [address] [facility] [address] CALCIUM 8.3 L 8.5-10.5 Dec 10, 2021 08:05 [place] CREATININE WITH eGFR Specime n Type: PLASMA AM [facility] PANEL Comment: [place] [id number] on Dec 10, 2021@08:31 Tests performed on [employer] (405) SN:[id number] Ordering Provid er: ISATU TODD Report Released Date/Time: Dec 10, 2021 07:22 AM Reporting Lab: [place] [facility] [address] [facility] [address] Performing Lab: [place] [facility] [address] [facility] [address] CREATININE 0.78 0.5-1.5 eGFR(CKD-EPI 2020) >90.0 >60 Dec 09, 2021 06:46 AM [place] [facility] MAGNESIUM Sp ecimen Type: PLASMA Comment: Tests performed on [employer] (405) SN:[id number] Ordering Provid er: ISATU TODD Report Released Date/Time: Dec 08, 2021 10:23 AM Reporting Lab: [place] [facility] [address] [facility] [address] Performing Lab: [place] [facility] [address] [facility] [address] MAGNESIUM 1.6 1.6-2.6 Dec 09, 2021 [facility] P4 GLU,BUN,CREAT,LYTES,CA Speci men Type: PLASMA 06:46 AM [facility] Comment: Tests performed on Xerographic Document Solutions (405) SN:[id number] Ordering Provid er: ISATU TODD Report Released Date/Time: Dec 08, 2021 05:00 PM Reporting Lab: [facility] [address] [facility] [address] Performing Lab: [facility] [address] [facility] [address] UREA NITROGEN 6 L 7-25 SODIUM 134 [...] PM Reporting Lab: [facility] [address] [facility] [address] Performing Lab: [facility] [address] [facility] [address] WBC 7.1 4.5-11.0 RBC 4.40 4.23-5.66 HGB [...] 0.00 0-0 Dec 08, 2021 06:39 AM [place] [employer] T [facility] MAGNESIUM Sp ecimen Type: PLASMA Comment: Testin g Performed on Xerographic Document Solutions (405) SN:[id number] Ordering Provid er: ISATU TODD Report Released Date/Time: Dec 07, 2021 10:32 AM Reporting [facility]: [facility] [address] [facility] [address] Performing [facility]: [facility] [address] [facility] [address] MAGNESIUM 1.5 L 1.6-2.6 Dec 08, 2021 [place] [employer] T P4 GLU,BUN,CREAT,LYTES,CA Speci men Type: PLASMA 06:39 AM [facility] Comment: Testin g Performed on Xer[employer] Document Solutions (405) SN:[id number] Ordering Provid er: ISATU TODD Report Released Date/Time: Dec 07, 2021 10:32 AM Reporting Lab: [employer] T [facility] [address] [facility] [address] Performing Lab: [facility] [address] [facility] [address] UREA NITROGEN 6 L 7-25 SODIUM 136 135-145 POTASSIUM 3.3 L 3.5-5.0 CHLORIDE 104 100-110 CARBON DIOXIDE 22 20-30 ANION GAP 10 4-16 GLUCOSE 133 H 65-100 CREATININE 0.76 0.5-1.5 CALCIUM 8.4 L 8.5-10.5 eGFR(CKD-EPI 2020) >90.0 >60 Dec 08, 2021 06:39 AM WHITE [employer] T [facility] CBC PROFILE Sp ecimen Type: BLOOD No comment enter ed. Ordering Provid er: ISATU TODD Report Released Date/Time: Dec 07, 2021 10:32 AM Reporting Lab: [facility] [address] [facility] [address] Performing Lab: [facility] [address] [facility] WBC 8.4 4.5-11.0 RBC 4.75 4.23-5.66 [...] [facility] Comment: Tests performed on Xerographic Document Solutions (405 SN:[id number] Ordering Provid er: PORFIRIO WALTERS Report Released Date/Time: Dec 06, 2021 06:57 PM Reporting Lab: [facility] [address] [facility] [address] Performing Lab: [facility] [address] [facility] [address] PROTEIN, TOTAL 5.7 L 6.0-8.5 ALBUMIN 2.4 L 3.2-5.0 BILIRUBIN, TOTAL 0.4 0.2-1.2 ALKALINE PHOSPHATASE 109 40-150 ALT(SGPT) 10 7-52 AST(SGOT) 15 5-34 FIB-4 SCORE 1.92 <2.67 Dec 07, 2021 [facility] P4 GLU,BUN,CREAT,LYTES,CA Speci men Type: PLASMA 06:42 AM [facility] Comment: Tests performed on Xer[employer] (405) SN:[id number] Ordering Provid er: PORFIRIO WALTERS Report Released Date/Time: Dec 06, 2021 06:57 PM Reporting Lab: [place] [facility] [address] [facility] [address] Performing Lab: [place] [facility] [address] [facility] [address] UREA NITROGEN 9 7-25 SODIUM 135 135-145 POTASSIUM 3.5 3.5-5.0 CHLORIDE 103 100-110 CARBON DIOXIDE 22 20-30 ANION GAP 10 4-16 GLUCOSE 92 65-100 CREATININE 0.73 0.5-1.5 CALCIUM 8.0 L 8.5-10.5 eGFR(CKD-EPI 2020) >90.0 >60 Dec 07, 2021 06:42 AM [place] CBC PROFILE Specimen Type: BLOOD [facility] No comment enter ed. Ordering Provid er: PORFIRIO WALTERS Report Released Date/Time: Dec 06, 2021 06:57 PM Reporting Lab: [place] [facility] [address] [facility] [address] Performing Lab: [facility] [address] [facility] [address] WBC 5.7 4.5-11.0 RBC 4.15 L 4.23-5.66 [...] [facility] %) AUT[employer] Comment: Tests performed on Xer[employer] Solutions (405) SN:[id number] Ordering Provid er: ISATU TODD Report Released Date/Time: Dec 07, 2021 10:28 AM Reporting Lab: [place] [facility] [address] [facility] [address] Performing Lab: [place] [facility] [address] [facility] [address] RETICULOCYTES (%) AUTOMATED 1.23 0. 6-2.0 RETICULOCYTES (ABS) AUTOMATED 0.052 0.030-0.090 Dec 06, 2021 09:45 [place] MRSA SURVL NARES Specimen Ty pe: NARES PM [facility] DNA No comment enter ed. Ordering Provid er: ALVARO VARGHESE Report Released Date/Time: Dec 07, 2021 02:20 AM Reporting Lab: [place] [facility] [address] [facility] [address] Performing Lab: [place] [facility] [address] [facility] [address] MRSA SURVL NARES DNA NEGATIVE NEGATIVE Dec 06, 2021 06:00 [place] URINALYSIS W/REFLEX TO Speci men Type: URINE PM [facility] CULTURE No comment enter ed. Ordering Provid er: JELANI SÁNCHEZ Report Released Date/Time: Dec 06, 2021 11:57 AM Reporting Lab: [place] [facility] [address] [facility] [address] Performing Lab: [place] [facility] [address] [facility] [address] URINE COLOR Arlin YELLOW SPECIFIC GRAVITY 1.029 [...] 21, [place] Comment: https://www.cdc.gov/coronavirus/2019-ncov/cases-updates/variant- surveillance/variant-info.html The [employer] ([employer]) SARS CoV 2 SHAPE Research Assay-GX is a next-generation sequencing (NGS) assa 2021 [facility] SEQUENCING y that determine s the complete genome sequence of the SARS-CoV-2 virus. The assay contains variant-tolerant primers to broaden and improve the coverage for variant detection and increase the sensitivity 12:00 [facility] PNL(WH) of the panel to enable detection from lower viral titer samples. The assay is run on the INTEX Program Sequencer, which performs automated library preparation, sequencing, analysis, and reporting. PM The sequence an alysis includes determination of viral phylogenetic lineage by comparison to the reference strain Wuhan-Hu-1, GenBank: [id number]. Sequence determination may not be possible owing [...] [facility] [address] [facility] [address] Performing Lab: [facility] [address] [facility] [address] SARS-CoV-2 CLADE() 22C (OMICRON) SARS-CoV-2 LINEAGE() BA.2.12.1 Dec 06, 2021 12:00 [facility] COVID-19 AG SCREEN Specimen Type: NASAL CAVITY PM [facility] PANEL BINAX(405) Comment: Testi ng Performed By: Mike Briscoe Ordering Provid er: JELANI SÁNCHEZ Report Released Date/Time: Dec 08, 2021 08:23 AM Reporting Lab: [facility] [address] [facility] [address] Performing Lab: [facility] [address] [facility] [address] COVID-19 AG SCRN(wrj BINAX) POSITIVE HH NE G Dec 06, 2021 [facility] P4 GLU,BUN,CREAT,LYTES,CA Speci men Type: PLASMA 12:00 PM [facility] Comment: Testin g Performed on [employer] (405) SN:[id number] Ordering Provid er: JELANI SÁNCHEZ Report Released Date/Time: Dec 06, 2021 11:57 AM Reporting Lab: [facility] [address] [facility] [address] Performing Lab: [facility] [address] [facility] [address] UREA NITROGEN 13 7-25 SODIUM 138 135-145 POTASSIUM 3.8 3.5-5.0 CHLORIDE 103 100-110 CARBON DIOXIDE 23 20-30 ANION GAP 12 4-16 GLUCOSE 105 H 65-100 CREATININE 0.90 0.5-1.5 CALCIUM 8.7 8.5-10.5 eGFR(CKD-EPI 2020) >90.0 >60 Dec 06, 2021 12:00 PM [facility] TROPONIN II Sp ecimen Type: PLASMA Comment: Tests performed on [employer] (405) SN:[id number] Ordering Provid er: JELANI SÁNCHEZ Report Released Date/Time: Dec 06, 2021 11:57 AM Reporting Lab: [facility] [address] [facility] [address] Performing Lab: [place] [facility] [place] [facility] [address] [facility] [address] TROPONIN II 0.03 0.00-0.29 Dec 06, 2021 12:00 PM [place] [facility] [place] [facility] BNP(P) Sp ecimen Type: PLASMA Comment: Tests performed on [employer] (405) SN:[id number] Ordering Provid er: JELANI SÁNCHEZ Report Released Date/Time: Dec 06, 2021 11:57 AM Reporting Lab: [facility] [address] [facility] [address] Performing Lab: [facility] [place] [facility] [address] [facility] [address] BNP(P) 224.8 H 10-100 Dec 06, 2021 12:00 PM [facility] LIVER PROFILE Sp ecimen Type: PLASMA Comment: Testin g Performed on [employer] (405) SN:[id number] Ordering Provid er: JELANI SÁNCHEZ Report Released Date/Time: Dec 06, 2021 11:57 AM Reporting Lab: [facility] [place] [facility] [address] [facility] [address] Performing Lab: [facility] [place] [facility] [address] [facility] [address] PROTEIN, TOTAL 6.6 6.0-8.5 ALBUMIN 2.8 L 3.2-5.0 BILIRUBIN, TOTAL 0.6 0.2-1.2 ALKALINE PHOSPHATASE 134 40-150 ALT(SGPT) 13 7-52 AST(SGOT) 18 5-34 FIB-4 SCORE 1.94 <2.67 Dec 06, 2021 [facility] COVID-19+FLU/RSV DIAGNOSTIC Spe cimen Type: NASOPHARYNX 12:00 PM [facility] PANEL(405) Comment: Tests performed on [employer] (405) Critical results called to and read back by: ALESHIA WILKINSON RN 12/06/21 @ 1312 Ordering Provid er: JELANI SÁNCHEZ Report Released Date/Time: Dec 06, 2021 11:57 AM Reporting Lab: [facility] [address] [facility] [address] [facility] [address] [facility] [address] FLU A(PCR) NEGATIVE NEGATIVE FLU B(PCR) NEGATIVE NEGATIVE RSV(PCR) NEGATIVE NEGATIVE COVID-19([id number]) DETECTED HH NO T DETECTED Dec 06, 2021 12:[address] [facility] CBC PROFILE Sp ecimen Type: BLOOD No comment enter ed. Ordering Provid er: JELANI SÁNCHEZ Report Released Date/Time: Dec 06, 2021 11:57 AM Reporting Lab: [facility] [address] [facility] [address] Performing Lab: [facility] [address] [facility] [address] WBC 7.2 4.5-11.0 RBC 4.86 4.23-5.66 HGB [...] 12, 0 2021 10:59 [place] AM [facility] Social History: Smoking Status (Most current) [...] took place. Date/Time Smoking Status/Tobacco Use Comment [facility] Apr 01, 2020 01:16 PM QUIT TOBACCO USE 1-7 YEARS AGO [facility] Mar 24, 2020 03:00 PM QUIT TOBACCO USE 1-7 YEARS AGO [facility] Feb 21, 2019 04:11 PM QUIT TOBACCO USE 1-7 YEARS AGO [facility] Feb 20, 2019 03:38 PM QUIT TOBACCO USE 1-7 YEARS AGO [facility] Feb 03, 2019 09:50 AM QUIT TOBACCO USE 1-7 YEARS AGO [facility] [place] [facility] May 25, 2016 11:53 PM QUIT TOBACCO USE IN PAST YEAR [facility] May 23, 2016 06:57 [...] USE IN PAST YEAR [facility]AREY DOYLE [facility] May 01, 2016 11:19 AM QUIT TOBACCO USE IN PAST YEAR [facility]Y DOYLE [facility] Mar 16, 2016 12:50 PM V1-PT DECLINES REF TO TOBACCO [facility]AREY DOYLE [facility] CESS PR[facility] Mar 16, 2016 12:50 PM V1-PT THINKING ABOUT QUIT CAREY DOYLE [facility] TOBACCO USE Aug 12, 2015 08:48 AM CURRENT SMOKER CAREY Yates [facility] Radiology Reports: +/- 30 days of [...] W/WO CONTRAST: MARYELLEN LONG LUCAS LARES N [id number] -1950 [facility] Exm Date: DEC 13, 2021@12:57 Req Phys: ISATU TODD Loc: OP Unknown/0 12-15-2021@13:20 Img Loc: MRI IMAGING ([facility]) Service: ZZGENERAL MEDICINE (Case [id number] COMPLETE) MRI ABDOMEN W/WO CONTRAST (M RI Detailed) CPT:44924 Reason for Study: further characterization of a [...] new lyphadenopathy REQUESTING MD: Isatu Todd PAGER: [phone] PHONE: [phone] Weight: 232.2 lb [105.32 kg] (12/12/2021 05:00) [...] patient will need to arrange for a limo driver to take him/her home after the [...] 15, 2021 Date Verified: DEC 15, 2021 Marine Scientist E-Sig:/ES/MARYELLEN LONG Report: MRI ABDOMEN W/WO CONTRAST [...] MALIGNANCY Primary Interpreting Staff: MARYELLEN LONG Staff (Marine Scientist) / Dec 10, 2021 09:[address] ABDOMEN & PELVIS: RADIOLOGY,OUTSIDE [facility] BENITA MEEKLAS N [id number] -1950 SERVICE [facility] Ex Date: DEC 10, 2021@09:30 Req Phys: ISATU TODD Loc: 1S MED/12-10@10:57 Img Loc: CT SCAN (OOS) Service: [facility] MEDICINE (Case [id number] COMPLETE) CT ABD & PELVIS WITHOUT CONT RAST (CT Detailed) CPT:86402 Reason for Study: 71 yo male with [...] INDEX - NO HEIGHTS FOUND Pager number: [phone] STAT orders MUST be call ed to RADIOLOGY [phone] to speak to the appropriate wetlands technician. Report Status: Verified Date Reported: DEC 10, 2021 Date Verified: DEC 10, 2021 Marine Scientist E-Sig: Report: EXAM: CT abdomen and pelvis [...] ph nodes. READING PHYSICIAN: Ramone Munoz D.O. [phone] 12/10/2021 10:55 EDT [facility] National Teleradiology Program [phone] (For Medical Practitioner Use Only ) [address] [facility], [address] [place] [address] Attention Patients / Veterans: If you have ques tions or concerns about these test results, please contact your o rdering provider or primary care team. Primary Diagnostic Code: SIGNIFICANT ABNORMALIT Y, ATTN NEEDED Primary Interpreting Staff: RADIOLOGY,OUTSIDE SERVICE, Staff Physician / Dec 09, 2021 07:34 AM BASW (MODIFIED): JESSIE CHENEY TARA ER JCLUCAS LARES N [id number] -1950 M [facility] Exm Date: DEC 09, 2021@07:34 Req Phys: PEYTONISATU Manjarrez Loc: 1S MED/12-09@11:26 Img Loc: XRAY (OOS) Service: [facility] MEDICINE (Case [id number] COMPLETE) BASW (MODIFIED) (RAD Detaile d) CPT:88159 Contrast Media : Barium Reason for Study: dysphagia ?esophageal spasm Clinical History: Report Status: Verified Date Reported: DEC 09, 2021 Date Verified: DEC 09, 2021 Marine Scientist E-Sig:/ES/JESSIE CHENEY Report: BASW (MODIFIED) , 12/09/2021 [...] REQUIRED Primary Interpreting Staff: JESSIE CHENEY, RADIOLOGIST (Marine Scientist) /TLC Dec 06, 2021 12:[address] CHEST (INCLUDES ADRENALS): JESSIE CHENEY LUCAS LARES N [id number] -1950 M [facility] Exm Date: DEC 06, 2021@12:59 Req Phys: JELANI SÁNCHEZ Pat Loc: [facility] ED DAYS M 1RD (Req'g Loc) Img Loc: CT SCAN (OOS) Service: Unknown (Case [id number] COMPLETE) CT THORAX W/O CONT (CT Detai led) CPT:97779 Reason for Study: Opacification right chest Clinical History: No contrast allergy BUN: 13 (12/06/21 12:00) CREATI: 0.90 (12/06/21 12:00) eGFR 05/16/21 09:43 52 L Weight: 232.6 lb [105.51 kg] (12/06/2021 11:40) BODY MASS INDEX - NO HEIGHTS FOUND Pager number: [phone] STAT orders MUST be called t o RADIOLOGY [phone] to speak to the appropriate wetlands technician. Indications - Other: Opacification right chest, covid positive, lung cancer histo Report Status: Verified Date Reported: DEC 06, 2021 Date Verified: DEC 06, 2021 Marine Scientist E-Sig:/ES/JESSIE CHENEY Report: CT THORAX W/O CONT [...] REQUIRED Primary Interpreting Staff: JESSIE CHENEY, RADIOLOGIST (Marine Scientist) Primary Interpreting Resident: PRINCE CHAMPION, Resident /BR Dec 06, 2021 11:58 AM CHEST SINGLE VIEW: JESSIE CHENEY DOUGLAS N [id number] -1950 M [facility] Exm Date: DEC 06, 2021@11:58 Req Phys: GONZALO,JELANI Link Pat Loc: [facility] ED DAYS M 1RD (Req'g Loc) Img Loc: XRAY (OOS) Service: Unknown (Case [id number] COMPLETE) CHEST SINGLE VIEW (RAD Detai led) CPT:08433 Proc Modifiers : PORTABLE EXAM Reason for Study: SOB, home covid test positive Clinical History: Report Status: Verified Date Reported: DEC 06, 2021 Date Verified: DEC 06, 2021 Marine Scientist E-Sig:/ES/JESSIE CHENEY Report: Exam type: Chest x-ray [...] REQUIRED Primary Interpreting Staff: JESSIE CHENEY, RADIOLOGIST (Marine Scientist) /TLC Pathology Reports: +/- 30 days of [...] Lab: [facility] [CLIA# [id number]] [address] [place] [address] - - - - - - [...] automatically d ocumented from SURGERY package case #[id number] Field (#32) PRINCIPAL PRE-OP DIAGNOSIS, (#.72) OTHER [...] automatically d ocumented from SURGERY package case #[id number] Field (#34) PRINCIPAL POST-OP DIAG, (#.74) OTHER [...] Label: Lucas Meek Paperwork: Lucas Meek Cassette: [id number];..;KALYANI;.;405;[id number] Specimen is labeled: ES bx Received in formalin are several pieces of pale boyd and brown tissue, 1.2 x 0.7 cm in aggregate. Submitted entirely in 1 cassette [id number];..;KALYANI;.;405;[id number] SAW 12/15/2021 Microscopic exam: *+* MODIFIED REPORT *+* (Last modified: JAN 03, 2022@09:30:20 typed by NIURKA WADDELL) DIAGNOSIS: A. 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 Kendell long. TIARA Coombs was notified on 12/21/21. Modified on 01/03/22 to include report from [facility] stating that tumor is NEGATIVE for her2/ matheus amplification. The attending pathologist who signature mansoor ears on this report has reviewed all diagnostic slides and has edited t he gross and/or microscopic portion of this report in rendering the final pathologic diagnosis. [address] [address] CPT: 86009 /emely/ NIURKA Yeung MD Signed Jan 03, 2022@10:28 Performing Laboratory: Surgical Pathology Report Performed By: [facility] [CLIA# [id number]] [address] [place] [address] $FTR - - - - - [...] - - - - - - - ULCAS MEEK STANDARD FORM 515 ID:[id number] SEX:M :1950 AGE: 71 LOC: SDM END PCP: Isatu Todd /emely/ NIURKA IMLLER Staff Signed: 01/03/2022 10:28 Dec 21, 2021 11:46 AM LR SURGICAL PATHOLOGY REPORT: STEFANY MILLER [facility] LOCAL TITLE: LR SURGICAL PATHOLOGY REPORT [facility] STANDARD TITLE: PATHOLOGY REPORT DATE OF NOTE: DEC 21, 2021@11:46:59 ENTRY DATE: DEC 21, 2021@11:46:59 AUTHOR: NIURKA MILLER EXP COSIGNER: URGENCY: STATUS: COMPLETED $APHDR Reporting Lab: [facility] [CLIA# [id number]] [address] [place] [address] - - - - - - [...] automatically d ocumented from SURGERY package case #[id number] Field (#32) PRINCIPAL PRE-OP DIAGNOSIS, (#.72) OTHER [...] automatically d ocumented from SURGERY package case #[id number] Field (#34) PRINCIPAL POST-OP DIAG, (#.74) OTHER [...] Label: Lucas Meek Paperwork: Lucas Meek Cassette: [id number];..;KALYANI;.;405;[id number] Specimen is labeled: ES bx Received in formalin are several pieces of pale boyd and brown tissue, 1.2 x 0.7 cm in aggregate. Submitted entirely in 1 cassette [id number];..;KALYANI;.;405;[id number] SAW 12/15/2021 Microscopic exam: DIAGNOSIS: A. 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 Kendell long. TIARA Coombs was notified on 12/21/21. The attending pathologist who signature mansoor ears on this report has reviewed all diagnostic slides and has edited t he gross and/or microscopic portion of this report in rendering the final pathologic diagnosis. [address] [address] CPT: 66678 /emely/ NIURKA Yeung MD Signed Dec 21, 2021@11:46 Performing Laboratory: Surgical Pathology Report Performed By: [facility] [CLIA# [id number]] [address] [place] [address] $FTR - - - - - [...] - - LUCAS MEEK STANDARD FORM 515 ID:[id number] SEX:M :1950 AGE: 71 LOC: SDM END PCP: Isatu Todd /charmaine Yeung MD Signed: 12/21/2021 11:46 Dec 06, 2021 03:30 PM LR MICROBIOLOGY REPORT: [facility] Reporting Lab: [facility] [CLIA# [id number]] [address] [place] [address] Accession [UID]: [id number] [[id number]] Receiv ed: Dec 06, 2021@16:14 Collection sample: BLOOD CUL T BOTTLE(NIRMAL/AERO)Collection date: Dec 06, 2021 15:30 Site/Specimen: BLOOD Provider: JELANI SÁNCHEZ Comment on specimen: LAC Test(s) ordered: BLOOD CULTURE ANAEROBI C....... completed: Dec 12, 2021 06:18 * BACTERIOLOGY FINAL REPORT => Dec 12, 2021 06:1 8 TECH CODE: 86604 Bacteriology Remark(s): NO GROWTH IN 5 DAYS =--=--=--=--=--=--=--=--=--=--=--=--=--= --=--=--=--=--=--=--=--=--=--=--=--=-- Performing Laboratory: Bacteriology Report Performed By: [facility] [CLIA# [id number]] [address] [place] [address] Dec 06, 2021 03:30 PM LR MICROBIOLOGY REPORT: [facility] Reporting Lab: [facility] [CLIA# [id number]] [address] [place] [address] Accession [UID]: [id number] [[id number]] Receiv ed: Dec 06, 2021@16:14 Collection sample: BLOOD CUL T BOTTLE(NIRMAL/AERO)Collection date: Dec 06, 2021 15:30 Site/Specimen: BLOOD Provider: JELANI SÁNCHEZ Comment on specimen: LAC Test(s) ordered: BLOOD CULTURE AEROBIC. ........ completed: Dec 12, 2021 06:17 * BACTERIOLOGY FINAL REPORT => Dec 12, 2021 06:1 7 TECH CODE: [id number] Bacteriology Remark(s): NO GROWTH IN 5 DAYS =--=--=--=--=--=--=--=--=--=--=--=--=--= --=--=--=--=--=--=--=--=--=--=--=--=-- Performing Laboratory: Bacteriology Report Performed By: [facility] [CLIA# [id number]] [address] [place] [address]
--- OUTSIDE RECORDS SUMMARY | 2022-01-19 08:40 | XMS_ITS ---
DAILY HOSPITALIZATION DATA [facility] Encounter Summary Created on:December 12, 2021 Patient:LUCAS MEEK Sex:Male :1950 Author Organization [facility] Address [address] [place] [id number] Support Name Relationship Address Phone YUSRA MEEK Unavailable [address] [place] [address] YUSRA MEEK Unavailable [address] [place] [facility] [place] [address] CLAY MOSLEY Unavailable Unavailable SJ SANTACRUZ Unavailable [...] MEDICARE MEDICARE PART Jun 18, PART A [id number] DO KALYANI PATIENT (WNR) (M) A 2016 13A 1 [place] MEDICARE MEDICARE PART Jun 18, PART B [id number] DO KALYANI PATIENT (WNR) (M) B 2016 13A 1 [place] MEDICARE MEDICARE PART Jun 18, PART A [id number] KALYANIDO PATIENT (WNR) (M) A 2017 VH81 2 [place] MEDICARE MEDICARE PART Jun 18, PART B [id number] DO KALYANI PATIENT (WNR) (M) B 2017 VH81 2 [place] UNITED MEDICARE MCR(Jun 18 [id number] Luz MEEK PATIENT HEALTHCARE ADVANTAGE NR) 2021 37 0 [facility] (WNR) Selected Encounter This section includes the information on record at [place] for the Encounter. Date/Time Encounter Type Encounter Description Reason Provider Source Dec 12, 2021 07:38 Inpatient Visit DAILY HOSPITALIZATION DATA PM IHE Encounter Template Text not used by [place] Plan of Treatment: Future Appointments (+ 6 [...] AM AMBULATORY - NONE [place] [facility] Jan 06, 2022 02:00 PM [place] [facility] Jan 10, 2022 11:30 AM [facility]ATORY - MEDICINE [facility] Jan 24, 2022 08:00 [place] [facility] Feb 21, 2022 10:00 AM AMBULATORY - SURG[place] [facility] Mar 21, [...] The data comes from all [place] treatment [facility]. Test Date/Time Test Type Test Details Facility Name October 31, 2021 07:37 AM Consult Order COMMUNITY CARE-EGD [facility] November 15, 2021 10:37 AM Consult Order [facility] CARE-PODIATRY [facility] Dec 06, 2021 12:52 PM Pharmacy [...] [place] OUTPATIENT Cons [facility] Jan 15, 2022 10:08 PM Consult Order [facility] CARE-PALLIATIVE CARE [facility] Lab Results: +/- 30 days of [...] Reference Range Comment Dec 15, 2021 [place] P4 GLU,BUN,CREAT,LYTES,CA Speci men Type: PLASMA 06:43 AM [facility] Comment: Tests performed on [employer] (405) SN:[id number] Ordering Provid er: ISATU TODD Report Released Date/Time: Dec 11, 2021 07:42 AM Reporting Lab: [facility] [address] [facility] [address] Performing Lab: [facility] [address] [facility] [address] UREA NITROGEN 9 7-25 SODIUM 137 135-145 [...] Lab: [facility] [address] [facility] [address] Performing Lab: [facility] [address] [facility] [address] WBC 5.7 4.5-11.0 RBC 4.22 L 4.23-5.66 [...] 2 NUE, FFPE See full report in Agentek Image display viewer/tab#LAB-Reference Ordering Provid er: NIURKA MILLER Report Released Date/Time: Dec 21, 2021 12:11 PM Reporting Lab: [facility] [address] [facility] [address] Performing Lab: [facility] CYTOGENETIC FISH([facility]) comment Dec 14, 2021 [facility] P4 GLU,BUN,CREAT,LYTES,CA Speci men Type: PLASMA 06:27 AM [facility] Comment: Tests performed on [employer] (405) SN:[id number] Ordering Provid er: ISATU TODD Report Released Date/Time: Dec 11, 2021 07:42 AM Reporting Lab: [facility] [address] [facility] [address] Performing Lab: [facility] [address] [facility] [address] UREA NITROGEN 10 7-25 SODIUM 137 135-145 [...] Reporting Lab: [facility] [address] [facility] [address] Performing Lab: [facility] [address] [facility] [address] WBC 6.0 4.5-11.0 RBC 4.29 4.23-5.66 HGB [...] ABSOLUTE NRBC 0.00 0-0 Dec 13, 2021 [facility] P4 GLU,BUN,CREAT,LYTES,CA Speci men Type: PLASMA 06:34 AM [facility] Comment: Tests performed on [employer] (405) SN:[id number] Ordering Provid er: ISATU TODD Report Released Date/Time: Dec 11, 2021 07:42 AM Reporting Lab: [facility] [address] [facility] [address] Performing Lab: [facility] [address] [facility] [address] UREA NITROGEN 12 7-25 SODIUM 136 135-145 [...] Reporting Lab: [facility] [address] [facility] [address] Performing Lab: [facility] [address] [facility] [address] WBC 5.6 4.5-11.0 RBC 4.28 4.23-5.66 HGB [...] [facility] Comment: Tests performed on [employer] (405) SN:[id number] Ordering Provid er: ISATU TODD Report Released Date/Time: Dec 11, 2021 07:42 AM Reporting Lab: [facility] [address] [facility] [address] Performing Lab: [facility] [address] [facility] [address] UREA NITROGEN 11 7-25 SODIUM 139 135-145 [...] 07:22 AM Reporting Lab: [facility] [address] [facility] [address] Performing Lab: [facility] [address] [facility] [address] WBC 5.5 4.5-11.0 RBC 4.37 4.23-5.66 HGB [...] 0.00 0-0 Dec 12, 2021 06:00 AM [facility] MAGNESIUM Sp ecimen Type: PLASMA Comment: Testin g Performed on [employer] (405) SN:[id number] Ordering Provid er: ISATU TODD Report Released Date/Time: Dec 12, 2021 08:24 AM Reporting Lab: [place] [facility] [address] [facility] [address] Performing Lab: [employer] [place]AT [facility] [address] [facility] [address] MAGNESIUM 1.8 1.6-2.6 Dec 12, 2021 06:00 AM [facility]T [facility] PHOSPHORUS Sp ecimen Type: PLASMA Comment: Testin g Performed on [employer] (405) SN:[id number] Ordering Provid er: ISATU TODD Report Released Date/Time: Dec 12, 2021 08:24 AM Reporting Lab: [place] [facility] [address] [facility] [address] Performing Lab: [place] [facility] [address] [facility] [address] PHOSPHORUS 3.1 2.5-5.0 Dec 11, 2021 06:15 AM [employer] [place] [facility] ELECTROLYTES Sp ecimen Type: PLASMA Comment: Tests performed on [employer] (405) SN:[id number] Ordering Provid er: ISATU TODD Report Released Date/Time: Dec 10, 2021 07:22 AM Reporting Lab: [place] [facility] [address] [facility] [address] Performing Lab: [place] [facility] [address] [facility] [address] SODIUM 137 135-145 POTASSIUM 4.3 3.5-5.0 CHLORIDE 108 100-110 CARBON DIOXIDE 20 20-30 ANION GAP 9 4-16 Dec 11, 2021 06:15 AM [place] EverspringT [facility] CBC PROFILE Sp ecimen Type: BLOOD Comment: Result s checked Ordering Provid er: ISATU TODD Report Released Date/Time: Dec 10, 2021 07:22 AM Reporting Lab: [place] [facility] [address] [facility] [address] Performing Lab: [facility] [place] OMEGAT [facility] [address] [facility] [address] WBC 5.8 4.5-11.0 RBC 4.37 4.23-5.66 HGB [...] ecimen Type: PLASMA Comment: Tests performed on [employer] (559) SN:[id number] Results checked Ordering Provid er: ISATU TODD Report Released Date/Time: Dec 11, 2021 07:44 AM Reporting Lab: [facility] [address] [facility] [address] Performing Lab: [place] [facility] [address] [facility] [address] PHOSPHORUS 3.0 2.5-5.0 Dec 10, 2021 08:05 AM [place] [facility] MAGNESIUM Sp ecimen Type: PLASMA Comment: [place] [id number] on Dec 10, 2021@08:31 Tests performed on [employer] (405) SN:[id number] Ordering Provid er: ISATU TODD Report Released Date/Time: Dec 10, 2021 07:22 AM Reporting Lab: [place] [facility] [address] [place] [facility] [place] [address] Performing Lab: [place] [facility] [address] [place] [facility] [place] [address] MAGNESIUM 1.7 1.6-2.6 Dec 10, 2021 08:05 AM [place] [facility] PHOSPHORUS Sp ecimen Type: PLASMA Comment: [place] [id number] on Dec 10, 2021@08:31 Tests performed on [employer] (405) SN:[id number] Ordering Provid er: ISATU TODD Report Released Date/Time: Dec 10, 2021 07:22 AM Reporting Lab: [place] [facility] [address] [place] [facility] [place] [address] Performing Lab: [place] [facility] [address] [place] [facility] [place] [address] PHOSPHORUS 1.8 L 2.5-5.0 Dec 10, 2021 08:05 AM [place] UREA NITROGEN Specimen Type: PLASMA [facility] Comment: [place] [id number] on Dec 10, 2021@08:31 Tests performed on [employer] (405) SN:[id number] Ordering Provid er: ISATU TODD Report Released Date/Time: Dec 10, 2021 07:22 AM Reporting Lab: [place] [facility] [address] [place] [facility] [place] [address] Performing Lab: [place] [facility] [address] [place] [facility] [place] [address] UREA NITROGEN 8 7-25 Dec 10, 2021 08:05 AM [place] [facility] GLUCOSE Sp ecimen Type: PLASMA Comment: [place] [id number] on Dec 10, 2021@08:31 Tests performed on [employer] (405) SN:[id number] Ordering Provid er: ISATU TODD Report Released Date/Time: Dec 10, 2021 07:22 AM Reporting Lab: [place] [facility] [address] [facility] [address] Performing Lab: [place] [facility] [address] [facility] [address] GLUCOSE 144 H 65-100 Dec 10, 2021 08:05 AM [place] [facility] ELECTROLYTES Sp ecimen Type: PLASMA Comment: [place] [id number] on Dec 10, 2021@08:31 Tests performed on [employer] (405) SN:[id number] Ordering Provid er: ISATU TODD Report Released Date/Time: Dec 10, 2021 07:22 AM Reporting Lab: [place] [facility] [address] [facility] [address] Performing Lab: [place] [facility] [address] [facility] [address] SODIUM 139 135-145 POTASSIUM 3.7 3.5-5.0 CHLORIDE 107 100-110 CARBON DIOXIDE 24 20-30 ANION GAP 8 4-16 Dec 10, 2021 08:05 AM [place] [facility] CALCIUM Sp ecimen Type: PLASMA Comment: [place] [id number] on Dec 10, 2021@08:31 Tests performed on [employer] (405) SN:[id number] Ordering Provid er: ISATU TODD Report Released Date/Time: Dec 10, 2021 07:22 AM Reporting Lab: [place] [facility] [address] [facility] [address] Performing Lab: [place] [facility] [address] [facility] [address] CALCIUM 8.3 L 8.5-10.5 Dec 10, 2021 08:05 [place] CREATININE WITH eGFR Specime n Type: PLASMA AM [facility] PANEL Comment: [place] [id number] on Dec 10, 2021@08:31 Tests performed on [employer] (405) SN:[id number] Ordering Provid er: ISATU TODD Report Released Date/Time: Dec 10, 2021 07:22 AM Reporting Lab: [place] [facility] [address] [facility] [address] Performing Lab: [place] [facility] [address] [facility] [address] CREATININE 0.78 0.5-1.5 eGFR(CKD-EPI 2020) >90.0 >60 Dec 10, 2021 08:05 AM [facility] CBC PROFILE Sp ecimen Type: BLOOD No comment enter ed. Ordering Provid er: ISATU TODD Report Released Date/Time: Dec 10, 2021 07:22 AM Reporting Lab: [facility] [place] OMEGAT [facility] [address] [facility] [address] Performing Lab: [place] [facility] [address] [facility] [address] WBC 7.0 4.5-11.0 RBC 4.54 4.23-5.66 HGB [...] 0.00 0-0 Dec 09, 2021 06:46 AM [facility] MAGNESIUM Sp ecimen Type: PLASMA Comment: Tests performed on [employer] (738) SN:[id number] Ordering Provid er: ISATU TODD Report Released Date/Time: Dec 08, 2021 10:23 AM Reporting Lab: [facility] [address] [facility] [address] Performing Lab: [facility] [address] [facility] [address] MAGNESIUM 1.6 1.6-2.6 Dec 09, 2021 [facility] P4 GLU,BUN,CREAT,LYTES,CA Speci men Type: PLASMA 06:46 AM [facility] Comment: Tests performed on [employer] (405) SN:[id number] Ordering Provid er: ISATU TODD Report Released Date/Time: Dec 08, 2021 05:00 PM Reporting Lab: [facility] [address] [facility] [address] Performing Lab: [facility] [address] [facility] [address] UREA NITROGEN 6 L 7-25 SODIUM 134 [...] Reporting Lab: [facility] [address] [facility] [address] Performing Lab: [facility] [address] [facility] [address] WBC 7.1 4.5-11.0 RBC 4.40 4.23-5.66 HGB [...] 0.00 0-0 Dec 08, 2021 06:39 AM [employer] T [facility] MAGNESIUM Sp ecimen Type: PLASMA Comment: Testin g Performed on [employer] (405) SN:[id number] Ordering Provid er: ISATU TODD Report Released Date/Time: Dec 07, 2021 10:32 AM Reporting Lab: [facility] [address] [facility] [address] Performing Lab: [facility] [address] [facility] [address] MAGNESIUM 1.5 L 1.6-2.6 Dec 08, 2021 [employer] T P4 GLU,BUN,CREAT,LYTES,CA Speci men Type: PLASMA 06:39 AM [facility] Comment: Testin g Performed on [employer] (405) SN:[id number] Ordering Provid er: ISATU TODD Report Released Date/Time: Dec 07, 2021 10:32 AM Reporting Lab: [employer] T [facility] [address] [facility] [address] Performing Lab: [facility] [address] [facility] [address] UREA NITROGEN 6 L 7-25 SODIUM 136 135-145 POTASSIUM 3.3 L 3.5-5.0 CHLORIDE 104 100-110 CARBON DIOXIDE 22 20-30 ANION GAP 10 4-16 GLUCOSE 133 H 65-100 CREATININE 0.76 0.5-1.5 CALCIUM 8.4 L 8.5-10.5 eGFR(CKD-EPI 2020) >90.0 >60 Dec 08, 2021 06:39 AM [place] [employer] T [facility] CBC PROFILE Sp ecimen Type: BLOOD No comment enter ed. Ordering Provid er: ISATU TODD Report Released Date/Time: Dec 07, 2021 10:32 AM Reporting Lab: [facility] [address] [facility] [address] Performing Lab: [facility] [address] [facility] WBC 8.4 4.5-11.0 RBC [...] [facility] Comment: Tests performed on [employer] (405 SN:[id number] Ordering Provid er: PORFIRIO WALTERS Report Released Date/Time: Dec 06, 2021 06:57 PM Reporting Lab: [facility] [address] [facility] [address] Performing Lab: [facility] [address] [facility] [address] PROTEIN, TOTAL 5.7 L 6.0-8.5 ALBUMIN 2.4 L 3.2-5.0 BILIRUBIN, TOTAL 0.4 0.2-1.2 ALKALINE PHOSPHATASE 109 40-150 ALT(SGPT) 10 7-52 AST(SGOT) 15 5-34 FIB-4 SCORE 1.92 <2.67 Dec 07, 2021 [facility] P4 GLU,BUN,CREAT,LYTES,CA Speci men Type: PLASMA 06:42 AM [facility] Comment: Tests performed on [employer] (405) SN:[id number] Ordering Provid er: PORFIRIO WALTERS Report Released Date/Time: Dec 06, 2021 06:57 PM Reporting Lab: [place] [facility] [address] [facility] [address] Performing Lab: [place] [facility] [address] [facility] [address] UREA NITROGEN 9 7-25 SODIUM 135 135-145 POTASSIUM 3.5 3.5-5.0 CHLORIDE 103 100-110 CARBON DIOXIDE 22 20-30 ANION GAP 10 4-16 GLUCOSE 92 65-100 CREATININE 0.73 0.5-1.5 CALCIUM 8.0 L 8.5-10.5 eGFR(CKD-EPI 2020) >90.0 >60 Dec 07, 2021 06:42 AM [place] CBC PROFILE Specimen Type: BLOOD [facility] No comment enter ed. Ordering Provid er: PORFIRIO WALTERS Report Released Date/Time: Dec 06, 2021 06:57 PM Reporting Lab: [place] [facility] [address] [facility] [address] Performing Lab: [facility] [address] [facility] [address] WBC 5.7 4.5-11.0 RBC 4.15 L 4.23-5.66 [...] [facility] %) AUTOMATED Comment: Tests performed on [employer] (405) SN:[id number] Ordering Provid er: ISATU TODD Report Released Date/Time: Dec 07, 2021 10:28 AM Reporting Lab: [place] [facility] [address] [facility] [address] Performing Lab: [place] [facility] [address] [facility] [address] RETICULOCYTES (%) AUTOMATED 1.23 0. 6-2.0 RETICULOCYTES (ABS) AUTOMATED 0.052 0.030-0.090 Dec 06, 2021 09:45 [place] MRSA SURVL NARES Specimen Ty pe: NARES PM [facility] DNA No comment enter ed. Ordering Provid er: ALVARO VARGHESE Report Released Date/Time: Dec 07, 2021 02:20 AM Reporting Lab: [place] [facility] [address] [facility] [address] Performing Lab: [place] [facility] [address] [facility] [address] MRSA SURVL NARES DNA NEGATIVE NEGATIVE Dec 06, 2021 06:00 [place] URINALYSIS W/REFLEX TO Speci men Type: URINE PM [facility] CULTURE No comment enter ed. Ordering Provid er: JELANI SÁNCHEZ Report Released Date/Time: Dec 06, 2021 11:57 AM Reporting Lab: [place] [facility] [address] [facility] [address] Performing Lab: [place] [facility] [address] [facility] [address] URINE COLOR Arlin YELLOW SPECIFIC GRAVITY 1.029 [...] 21, RIVER VARIANT Comment: https://www.cdc.gov/coronavirus/2019-ncov/cases-updates/variant- surveillance/variant-info.html The [employer] SARS CoV 2 [employer] Assay-GX is a next-generation sequencing (NGS) assa 2021 [facility] SEQUENCING y that determine s the complete genome sequence of the SARS-CoV-2 virus. The assay contains variant-tolerant primers to broaden and improve the coverage for variant detection and increase the sensitivity 12:00 [facility] PNL(WH) of the panel to enable detection from lower viral titer samples. The assay is run on the Primordial Sequencer, which performs automated library preparation, sequencing, analysis, and reporting. PM The sequence an alysis includes determination of viral phylogenetic lineage by comparison to the reference strain Wu[place]-Hu-1, GenBank: [id number]. Sequence determination may not be possible owing [...] and its performance characteristics determined by the [facility], which is certified under the Clinical Laboratory Improveme nt Amendments (C MARCO) as qualified to perform high complexity clinical laboratory testing. This test is validated for clinical use at [facility] and should not be regarded as investigational [...] Lab: [facility] [address] [facility] [address] Performing Lab: [facility] [address] [facility] [address] SARS-CoV-2 CLADE() 22C (OMICRON) SARS-CoV-2 LINEAGE() BA.2.12.1 Dec 06, 2021 12:00 [facility] COVID-19 AG SCREEN Specimen Type: NASAL CAVITY PM [facility] PANEL BINAX(405) Comment: Testi ng Performed By: Mike Briscoe Ordering Provid er: JELANI SÁNCHEZ Report Released Date/Time: Dec 08, 2021 08:23 AM Reporting Lab: [facility] [address] [facility] [address] Performing Lab: [facility] [address] [facility] [address] COVID-19 AG SCRN(wrj BINAX) POSITIVE HH NE G Dec 06, 2021 12:00 PM [facility] TROPONIN II Sp ecimen Type: PLASMA Comment: Tests performed on [employer] (405) SN:[id number] Ordering Provid er: JELANI SÁNCHEZ Report Released Date/Time: Dec 06, 2021 11:57 AM Reporting Lab: [facility] [address] [facility] [address] Performing Lab: [facility] [address] [facility] [address] TROPONIN II 0.03 0.00-0.29 Dec 06, 2021 [place] P4 GLU,BUN,CREAT,LYTES,CA Speci men Type: PLASMA 12:00 PM [facility] Comment: Testin g Performed on [employer] (405) SN:[id number] Ordering Provid er: JELANI SÁNCHEZ Report Released Date/Time: Dec 06, 2021 11:57 AM Reporting Lab: [place] [facility] [address] [facility] [address] Performing Lab: [place] [facility] [address] [facility] [address] UREA NITROGEN 13 7-25 SODIUM 138 135-145 POTASSIUM 3.8 3.5-5.0 CHLORIDE 103 100-110 CARBON DIOXIDE 23 20-30 ANION GAP 12 4-16 GLUCOSE 105 H 65-100 CREATININE 0.90 0.5-1.5 CALCIUM 8.7 8.5-10.5 eGFR(CKD-EPI 2020) >90.0 >60 Dec 06, 2021 12:00 PM [facility] LIVER PROFILE Sp ecimen Type: PLASMA Comment: Testin g Performed on [employer] (405) SN:[id number] Ordering Provid er: JELANI SÁNCHEZ Report Released Date/Time: Dec 06, 2021 11:57 AM Reporting Lab: [facility] [address] [facility] [address] Performing Lab: [facility] [address] [facility] [address] PROTEIN, TOTAL 6.6 6.0-8.5 ALBUMIN 2.8 L 3.2-5.0 BILIRUBIN, TOTAL 0.6 0.2-1.2 ALKALINE PHOSPHATASE 134 40-150 ALT(SGPT) 13 7-52 AST(SGOT) 18 5-34 FIB-4 SCORE 1.94 <2.67 Dec 06, 2021 12:00 PM [facility] BNP(P) Sp ecimen Type: PLASMA Comment: Tests performed on [employer] (405) SN:[id number] Ordering Provid er: JELANI SÁNCHEZ Report Released Date/Time: Dec 06, 2021 11:57 AM Reporting Lab: [facility] [address] [facility] [address] Performing Lab: [facility] [address] [facility] [address] BNP(P) 224.8 H 10-100 Dec 06, 2021 [facility] COVID-19+FLU/RSV DIAGNOSTIC Spe cimen Type: NASOPHARYNX 12:00 PM [facility] PANEL(405) Comment: Tests performed on [employer] (405) Critical results called to and read back by: ALESHIA WILKINSON RN 12/06/21 @ 1312 Ordering Provid er: JELANI SÁNCHEZ Report Released Date/Time: Dec 06, 2021 11:57 AM Reporting Lab: [facility] [address] [facility] [address] Performing Lab: [place] [facility] [address] [facility] [id number] FLU A(PCR) NEGATIVE NEGATIVE FLU B(PCR) NEGATIVE NEGATIVE RSV(PCR) NEGATIVE NEGATIVE COVID-19([id number]) DETECTED HH NO T DETECTED Dec 06, 2021 12:00 PM [facility] Sp ecimen Type: BLOOD No comment enter ed. Ordering Provid er: JELANI SÁNCHEZ Report Released Date/Time: Dec 06, 2021 11:57 AM Reporting Lab: [facility] [address] [facility] [address] Performing Lab: [facility] [address] [facility] [address] WBC 7.2 4.5-11.0 RBC 4.86 4.23-5.66 HGB [...] 2021 07:43 /min mm[Hg] RIVER PM T [facility] Dec 12, 0 WHITE 2021 07:37 RIVER PM [place] [facility] Dec 12, 0 WHITE 2021 02:17 RIVER PM T [facility] Dec 12, 98 F 82 127/76 18 /min 97 % WHITE 2021 02:01 /min mm[Hg] RIVER PM T [facility] Dec 12, 0 2021 10:59 RIVER AM [facility] Social History: Smoking Status (Most current) and [...] took place. Date/Time Smoking Status/Tobacco Use Comment [facility] Apr 01, 2020 01:16 PM QUIT TOBACCO USE 1-7 YEARS AGO [facility] Mar 24, 2020 03:00 PM QUIT TOBACCO USE 1-7 YEARS AGO [facility] Feb 21, 2019 04:11 PM QUIT TOBACCO USE 1-7 YEARS AGO [facility] Feb 20, 2019 03:38 PM QUIT TOBACCO USE 1-7 YEARS AGO [facility] Feb 03, 2019 09:50 AM QUIT TOBACCO USE 1-7 YEARS AGO [facility] May 25, 2016 11:53 PM QUIT TOBACCO USE IN PAST YEAR [facility] May 23, 2016 06:57 [...] TOBACCO USE IN PAST YEAR [facility] May 01, 2016 11:19 AM QUIT TOBACCO USE IN PAST YEAR [facility] Mar 16, 2016 12:50 PM V1-PT DECLINES REF TO TOBACCO [facility] CESS [facility] Mar 16, 2016 12:50 PM V1-PT THINKING ABOUT QUIT [facility] TOBACCO USE Aug 12, 2015 08:48 AM CURRENT SMOKER [facility] Radiology Reports: +/- 30 days of the [...] comes from all [place] treatment facilities. Date/Time Radiology Report Provider Source Dec 13, 2021 12:57 PM MRI ABDOMEN W/WO CONTRAST: MARYELLEN LONG LUCAS LARES N [id number] -1950 [facility] Exm Date: DEC 13, 2021@12:57 Req Phys: ISATU TODD Loc: OP Unknown/0 12-15-2021@13:20 Img Loc: MRI IMAGING (OOS) Service: [facility]ZGENERAL MEDICINE (Case [id number] COMPLETE) MRI ABDOMEN W/WO CONTRAST (M RI Detailed) CPT:39447 Reason for Study: further characterization of a [...] new lyphadenopathy REQUESTING MD: Isatu Todd PAGER: [phone] PHONE: [phone] Weight: 232.2 lb [105.32 kg] (12/12/2021 05:00) [...] patient will need to arrange for a shag 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 to take him/her home after [...] 15, 2021 Date Verified: DEC 15, 2021 Assignment Desk Assistant E-Sig:/ES/MARYELLEN LONG Report: MRI ABDOMEN W/WO CONTRAST [...] MALIGNANCY Primary Interpreting Staff: MARYELLEN LONG Staff (Assignment Desk Assistant) / Dec 10, 2021 09:[address] ABDOMEN & PELVIS: [facility] BEN[facility] MEEKLAS N [id number] -1950 [facility] Ex Date: DEC 10, 2021@09:30 Req Phys: ISATU TODD Loc: 1S MED/12-10@10:57 Img Loc: CT SCAN (OOS) Service: [facility] MEDICINE (Case [id number] COMPLETE) CT ABD & PELVIS WITHOUT CONT RAST (CT Detailed) CPT:74642 Reason for Study: 71 yo male with [...] INDEX - NO HEIGHTS FOUND Pager number: [phone] STAT orders MUST be call ed to RADIOLOGY [phone] to speak to the appropriate systems protection technician. Report Status: Verified Date Reported: DEC 10, 2021 Date Verified: DEC 10, 2021 Assignment Desk Assistant E-Sig: Report: EXAM: CT abdomen and pelvis [...] ph nodes. READING PHYSICIAN: Ramone Munoz D.O. [phone] 12/10/2021 10:55 EDT [facility] National Teleradiology Program [phone] (For Medical Practitioner Use Only ) [address] [facility], [facility] [address], [address] [place] [address] Attention Patients / Veterans: If you have ques tions or concerns about these test results, please contact your o rdering provider or primary care team. Primary Diagnostic Code: SIGNIFICANT ABNORMALIT Y, ATTN NEEDED Primary Interpreting Staff: RADIOLOGY,OUTSIDE SERVICE, Staff Physician / Dec 09, 2021 07:34 AM BASW (MODIFIED): JESSIE CHENEY TARA ER JCLUCAS LARES N [id number] -1950 [facility] Exm Date: DEC 09, 2021@07:34 Req Phys: PEYTONISATU Manjarrez Loc: 1S MED/12-09@11:26 Img Loc: XRAY (OOS) Service: [facility] MEDICINE (Case [id number] COMPLETE) BASW (MODIFIED) (RAD Detaile d) CPT:43448 Contrast Media : Barium Reason for Study: dysphagia ?esophageal spasm Clinical History: Report Status: Verified Date Reported: DEC 09, 2021 Date Verified: DEC 09, 2021 Assignment Desk Assistant E-Sig:/ES/JESSIE CHENEY Report: BASW (MODIFIED) , 12/09/2021 [...] REQUIRED Primary Interpreting Staff: JESSIE CHENEY, RADIOLOGIST (Assignment Desk Assistant) /TLC Dec 06, 2021 12:[address] CHEST (INCLUDES ADRENALS): JESSIE CHENEY LUCAS LARES N [id number] -1950 M [facility] Exm Date: DEC 06, 2021@12:59 Req Phys: JELANI SÁNCHEZ Pat Loc: [facility] ED DAYS M 1RD (Req'g Loc) Img Loc: CT SCAN (OOS) Service: Unknown (Case [id number] COMPLETE) CT THORAX W/O CONT (CT Detai led) CPT:00165 Reason for Study: Opacification right chest Clinical History: No contrast allergy BUN: 13 (12/06/21 12:00) CREATI: 0.90 (12/06/21 12:00) eGFR 05/16/21 09:43 52 L Weight: 232.6 lb [105.51 kg] (12/06/2021 11:40) BODY MASS INDEX - NO HEIGHTS FOUND Pager number: [phone] STAT orders MUST be called t o RADIOLOGY [phone] to speak to the appropriate systems protection technician. Indications - Other: Opacification right chest, covid positive, lung cancer histo Report Status: Verified Date Reported: DEC 06, 2021 Date Verified: DEC 06, 2021 Assignment Desk Assistant E-Sig:/ES/JESSIE CHENEY Report: CT THORAX W/O CONT [...] REQUIRED Primary Interpreting Staff: JESSIE CHENEY, RADIOLOGIST (Assignment Desk Assistant) Primary Interpreting Resident: PRINCE CHAMPION, Resident /BR Dec 06, 2021 11:58 AM CHEST SINGLE VIEW: JESSIE CHENEY DOUGLAS N [id number] -1950 M [facility] Exm Date: DEC 06, 2021@11:58 Req Phys: GONZALO,JELANI Link Pat Loc: [facility] ED DAYS M 1RD (Req'g Loc) Img Loc: XRAY (OOS) Service: Unknown (Case [id number] COMPLETE) CHEST SINGLE VIEW (RAD Detai led) CPT:46201 Proc Modifiers : PORTABLE EXAM Reason for Study: SOB, home covid test positive Clinical History: Report Status: Verified Date Reported: DEC 06, 2021 Date Verified: DEC 06, 2021 Assignment Desk Assistant E-Sig:/ES/JESSIE CHENEY Report: Exam type: Chest x-ray [...] REQUIRED Primary Interpreting Staff: JESSIE CHENEY, RADIOLOGIST (Assignment Desk Assistant) /TLC Pathology Reports: +/- 30 days of [...] MILLER LOCAL TITLE: LR SURGICAL PATHOLOGY REPORT [facility] STANDARD TITLE: PATHOLOGY REPORT DATE OF NOTE: JAN 03, 2022@10:28:01 ENTRY DATE: JAN 03, 2022@10:28:01 AUTHOR: NIURKA MILLER EXP COSIGNER: URGENCY: STATUS: COMPLETED $APHDR Reporting Lab: [facility] [CLIA# [id number]] [address] [place] [address] - - - - - - [...] automatically d ocumented from SURGERY package case #[id number] Field (#32) PRINCIPAL PRE-OP DIAGNOSIS, (#.72) OTHER [...] automatically d ocumented from SURGERY package case #[id number] Field (#34) PRINCIPAL POST-OP DIAG, (#.74) OTHER [...] Label: Lucas Meek Paperwork: Lucas Meek Cassette: [id number];..;KALYANI;.;405;[id number] Specimen is labeled: ES bx Received in formalin are several pieces of pale boyd and brown tissue, 1.2 x 0.7 cm in aggregate. Submitted entirely in 1 cassette [id number];..;KALYANI;.;405;[id number] SAW 12/15/2021 Microscopic exam: *+* MODIFIED REPORT [...] in rendering the final pathologic diagnosis. [address] [address] CPT: 40152 /emely/ NIURKA Yeung MD Signed Jan 03, 2022@10:28 Performing Laboratory: Surgical Pathology Report Performed By: [facility] [CLIA# [id number]] [address] [place] [address] $FTR - - - - - [...] - - LUCAS MEEK STANDARD FORM 515 ID:[id number] SEX:M :1950 AGE: 71 LOC: SDM END PCP: Isatu Todd /emely/ NIURKA MILLER Staff Signed: 01/03/2022 10:28 Dec 21, 2021 11:46 AM LR SURGICAL PATHOLOGY REPORT: STEFANY MILLER [facility] LOCAL TITLE: LR SURGICAL PATHOLOGY REPORT [facility] STANDARD TITLE: PATHOLOGY REPORT DATE OF NOTE: DEC 21, 2021@11:46:59 ENTRY DATE: DEC 21, 2021@11:46:59 AUTHOR: NIURKA MILLER EXP COSIGNER: URGENCY: STATUS: COMPLETED $APHDR Reporting Lab: [facility] [CLIA# [id number]] [address] [place] [address] - - - - - - [...] automatically d ocumented from SURGERY package case #[id number] Field (#32) PRINCIPAL PRE-OP DIAGNOSIS, (#.72) OTHER [...] automatically d ocumented from SURGERY package case #[id number] Field (#34) PRINCIPAL POST-OP DIAG, (#.74) OTHER [...] Label: Lucas Meek Paperwork: Lucas Meek Cassette: [id number];..;KALYANI;.;405;[id number] Specimen is labeled: ES bx Received in formalin are several pieces of pale boyd and brown tissue, 1.2 x 0.7 cm in aggregate. Submitted entirely in 1 cassette [id number];..;KALYANI;.;405;[id number] SAW 12/15/2021 Microscopic exam: DIAGNOSIS: A. 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 Kendell long. TIARA Coombs was notified on 12/21/21. The attending pathologist who signature mansoor ears on this report has reviewed all diagnostic slides and has edited t he gross and/or microscopic portion of this report in rendering the final pathologic diagnosis. [address] [address] CPT: 92512 /emely/ NIURKA Yeung MD Signed Dec 21, 2021@11:46 Performing Laboratory: Surgical Pathology Report Performed By: [facility] [CLIA# [id number]] [address] [place] [address] $FTR - - - - - [...] - - LUCAS MEEK STANDARD FORM 515 ID:[id number] SEX:M :1950 AGE: 71 LOC: SDM END PCP: Isatu Todd /charmaine Yeung MD Signed: 12/21/2021 11:46 Dec 06, 2021 03:30 PM LR MICROBIOLOGY REPORT: [facility] Reporting Lab: [facility] [CLIA# [id number]] [address] [place] [address] Accession [UID]: [id number] [[id number]] Receiv ed: Dec 06, 2021@16:14 Collection sample: BLOOD CUL T BOTTLE(NIRMAL/AERO)Collection date: Dec 06, 2021 15:30 Site/Specimen: BLOOD Provider: JELANI SÁNCHEZ Comment on specimen: LAC Test(s) ordered: BLOOD CULTURE ANAEROBI C....... completed: Dec 12, 2021 06:18 * BACTERIOLOGY FINAL REPORT => Dec 12, 2021 06:1 8 TECH CODE: 50603 Bacteriology Remark(s): NO GROWTH IN 5 DAYS =--=--=--=--=--=--=--=--=--=--=--=--=--= --=--=--=--=--=--=--=--=--=--=--=--=-- Performing Laboratory: Bacteriology Report Performed By: [facility] [CLIA# [id number]] [address] [place] [address] Dec 06, 2021 03:30 PM LR MICROBIOLOGY REPORT: [facility] Reporting Lab: [facility] [CLIA# [id number]] [address] [place] [address] Accession [UID]: [id number] [[id number]] Receiv ed: Dec 06, 2021@16:14 Collection sample: BLOOD CUL T BOTTLE(NIRMAL/AERO)Collection date: Dec 06, 2021 15:30 Site/Specimen: BLOOD Provider: JELANI SÁNCHEZ Comment on specimen: LAC Test(s) ordered: BLOOD CULTURE AEROBIC. ........ completed: Dec 12, 2021 06:17 * BACTERIOLOGY FINAL REPORT => Dec 12, 2021 06:1 7 TECH CODE: 25780 Bacteriology Remark(s): NO GROWTH IN 5 DAYS =--=--=--=--=--=--=--=--=--=--=--=--=--= --=--=--=--=--=--=--=--=--=--=--=--=-- Performing Laboratory: Bacteriology Report Performed By: [facility] [CLIA# [id number]] [address] [place] [address]
--- OUTSIDE RECORDS SUMMARY | 2022-01-19 08:41 | XMS_ITS ---
DAILY HOSPITALIZATION DATA [facility] Encounter Summary Created on:December 12, 2021 Patient:LUCAS MEEK Sex:Male :1950 Author Organization [facility] Address [address] [place] [id number] Support Name Relationship Address Phone YUSRA MEEK Unavailable [address] [place] [place] [address] YUSRA MEEK Unavailable [address] [place] [facility] [place] [address] CLAY MOSLEY Unavailable Unavailable SJ SANTACRUZ Unavailable [...] MEDICARE MEDICARE PART Jun 18, PART B [id number] DO KALYANI PATIENT (WNR) (M) B 2016 13A 1 UGLAS MEDICARE MEDICARE PART Jun 18, PART A [id number] DO KALYANI PATIENT (WNR) (M) A 2017 VH81 2 LAS MEDICARE MEDICARE PART Jun 18, PART A [id number] KALYANIDO PATIENT (WNR) (M) A 2016 13A 1 UGLAS MEDICARE MEDICARE PART Jun 18, PART B [id number] DO KALYANI PATIENT (WNR) (M) B 2017 VH81 2 UGLAS UNITED MEDICARE MCR(Jun 18 [id number] Luz MEEK PATIENT HEALTHCARE ADVANTAGE NR) 2021 37 0 [facility] (WNR) Selected Encounter This section includes the information on record at [place] for the Encounter. Date/Time Encounter Type Encounter Description Reason Provider Source Dec 12, 2021 07:44 Inpatient Visit DAILY HOSPITALIZATION DATA PM IHE [...] 2022 10:00 AM AMBULATORY - [place] [facility] Mar 21, 2022 10:30 AM [...] The data comes from all [place] treatment [facility]. Test Date/Time Test Type Test Details Facility Name October 31, 2021 07:37 AM Consult Order [facility]-EGD [facility] Cons Clinical Nursing Coordinator's Choice November 15, 2021 10:37 AM Consult Order [facility] CARE-PODIATRY Cons Clinical Nursing Coordinator's Choice Dec 06, 2021 12:52 PM Pharmacy [...] OUTPATIENT Cons [facility] Clinical Nursing Coordinator's Choice Jan 15, 2022 10:08 PM Consult Order [facility] CARE-PALLIATIVE CARE Cons Clinical Nursing Coordinator's Choice Lab Results: +/- 30 days of [...] Reference Range Comment Dec 15, 2021 [place] P4 GLU,BUN,CREAT,LYTES,[place] Speci men Type: PLASMA 06:43 AM [facility] Comment: Tests performed on Conzoom (405) SN:[id number] Ordering Provid er: ISATU TODD Report Released Date/Time: Dec 11, 2021 07:42 AM Reporting Lab: [facility] [address] [facility] [address] Performing Lab: [facility] [address] [facility] [address] UREA NITROGEN 9 7-25 SODIUM 137 135-145 [...] T [facility] [address] [facility] [address] Performing Lab: [facility] [address] [facility] [address] WBC 5.7 4.5-11.0 RBC 4.22 L 4.23-5.66 [...] CYTOGENETIC Specimen Type: ESOPHAGUS 02:59 PM [facility]) Comment: ~For T est: CYTOGENETIC FISH([facility]) ~FISH HER 2 NUE, FFPE See full report in [employer] Image display viewer/tab#LAB-Reference Ordering Provid er: NIURKA MILLER Report Released Date/Time: Dec 21, 2021 12:11 PM Reporting Lab: [facility] [address] [facility] [address] Performing Lab: [facility] CYTOGENETIC FISH([facility]) comment Dec 14, 2021 [facility] P4 GLU,BUN,CREAT,LYTES,[place] Speci men Type: PLASMA 06:27 AM [facility] Comment: Tests performed on Conzoom (405) SN:[id number] Ordering Provid er: ISATU TODD Report Released Date/Time: Dec 11, 2021 07:42 AM Reporting Lab: [facility] [address] [facility] [address] Performing Lab: [facility] [address] [facility] [address] UREA NITROGEN 10 7-25 SODIUM 137 135-145 POTASSIUM 4.0 3.5-5.0 CHLORIDE 104 100-110 CARBON DIOXIDE 25 20-30 ANION GAP 8 4-16 GLUCOSE 99 65-100 CREATININE 0.67 0.5-1.5 CALCIUM 8.2 L 8.5-10.5 eGFR(CKD-EPI 2020) >90.0 >60 Dec 14, 2021 06:27 [facility] ecimen Type: BLOOD No comment enter ed. Ordering Provid er: ISATU TODD Report Released Date/Time: Dec 10, 2021 07:22 AM Reporting Lab: [facility] [address] [facility] [address] Performing Lab: [facility] [address] [facility] [address] WBC 6.0 4.5-11.0 RBC 4.29 4.23-5.66 HGB [...] 0.00 0-0 Dec 13, 2021 06:34 AM [facility] CBC PROFILE Sp ecimen Type: BLOOD No comment enter ed. Ordering Provid er: ISATU TODD Report Released Date/Time: Dec 10, 2021 07:22 AM Reporting Lab: [facility] [address] [facility] [address] Performing Lab: [facility] [address] [facility] [address] WBC 5.6 4.5-11.0 RBC 4.28 4.23-5.66 HGB [...] [facility] Comment: Tests performed on Conzoom (405) SN:[id number] Ordering Provid er: ISATU TODD Report Released Date/Time: Dec 11, 2021 07:42 AM Reporting Lab: [facility] [address] [facility] [address] Performing Lab: [facility] [address] [facility] [address] UREA NITROGEN 12 7-25 SODIUM 136 135-145 POTASSIUM 3.9 3.5-5.0 CHLORIDE 105 100-110 CARBON DIOXIDE 24 20-30 ANION GAP 7 4-16 GLUCOSE 102 H 65-100 CREATININE 0.66 0.5-1.5 CALCIUM 8.3 L 8.5-10.5 eGFR(CKD-EPI 2020) >90.0 >60 Dec 12, 2021 [facility] GLU,BUN,CREAT,LYTES,[place] Speci men Type: PLASMA 06:21 AM [facility] Comment: Tests performed on Conzoom (405) SN:[id number] Ordering Provid er: ISATU TODD Report Released Date/Time: Dec 11, 2021 07:42 AM Reporting Lab: [facility] [address] [facility] [address] Per[facility]: [facility] [address] [facility] [address] UREA NITROGEN 11 7-25 SODIUM 139 135-145 POTASSIUM 4.1 3.5-5.0 CHLORIDE 107 100-110 CARBON DIOXIDE 24 20-30 ANION GAP 8 4-16 GLUCOSE 110 H 65-100 CREATININE 0.70 0.5-1.5 CALCIUM 8.3 L 8.5-10.5 eGFR(CKD-EPI 2020) >90.0 >60 Dec 12, 2021 06:21 AM [facility] CBC PROFILE Sp ecimen Type: BLOOD No comment enter ed. Ordering Provid er: ISATU TODD Report Released Date/Time: Dec 10, 2021 07:22 AM Reporting Lab: [facility] [address] [facility] [address] Performing Lab: [facility] [address] [facility] [address] WBC 5.5 4.5-11.0 RBC 4.37 4.23-5.66 HGB [...] 0.00 0-0 Dec 12, 2021 06:00 AM [facility] MAGNESIUM Sp ecimen Type: PLASMA Comment: Testin g Performed on Conzoom (405) SN:[id number] Ordering Provid er: ISATU TODD Report Released Date/Time: Dec 12, 2021 08:24 AM Reporting Lab: [place] [facility] [address] [facility] [address] Performing Lab: [employer] [place] [facility] [address] [facility] [address] MAGNESIUM 1.8 1.6-2.6 Dec 12, 2021 06:00 AM [facility] PHOSPHORUS Sp ecimen Type: PLASMA Comment: Testin g Performed on Conzoom (405) SN:[id number] Ordering Provid er: ISATU TODD Report Released Date/Time: Dec 12, 2021 08:24 AM Reporting Lab: [place] [facility] [address] [facility] [address] Performing Lab: [place] [facility] [address] [facility] [address] PHOSPHORUS 3.1 2.5-5.0 Dec 11, 2021 06:15 AM [employer] [place] [facility] ELECTROLYTES Sp ecimen Type: PLASMA Comment: Tests performed on Conzoom (405) SN:[id number] Ordering Provid er: ISATU TODD Report Released Date/Time: Dec 10, 2021 07:22 AM Reporting Lab: [place] [facility] [address] [facility] [address] Performing Lab: [place] [facility] [address] [facility] [address] SODIUM 137 135-145 POTASSIUM 4.3 3.5-5.0 CHLORIDE 108 100-110 CARBON DIOXIDE 20 20-30 ANION GAP 9 4-16 Dec 11, 2021 06:15 AM [facility] CBC PROFILE Sp ecimen Type: BLOOD Comment: Result s checked Ordering Provid er: ISATU TODD Report Released Date/Time: Dec 10, 2021 07:22 AM Reporting Lab: [place] [facility] [address] [facility] [address] Performing Lab: [facility] [place] [facility] [address] [facility] [address] WBC 5.8 4.5-11.0 RBC 4.37 4.23-5.66 HGB [...] ecimen Type: PLASMA Comment: Tests performed on Conzoom (435) SN:[id number] Results checked Ordering Provid er: ISATU TODD Report Released Date/Time: Dec 11, 2021 07:44 AM Reporting Lab: [facility] [address] [facility] [address] Performing Lab: [place] [facility] [address] [facility] [address] PHOSPHORUS 3.0 2.5-5.0 Dec 10, 2021 08:05 AM [place] [facility] MAGNESIUM Sp ecimen Type: PLASMA Comment: [place] [id number] on Dec 10, 2021@08:31 Tests performed on Conzoom (405) SN:[id number] Ordering Provid er: ISATU TODD Report Released Date/Time: Dec 10, 2021 07:22 AM Reporting Lab: [place] [facility] [address] [place] [facility] [place] [address] Performing Lab: [place] [facility] [address] [place] [facility] [place] [address] MAGNESIUM 1.7 1.6-2.6 Dec 10, 2021 08:05 AM [place] [facility] PHOSPHORUS Sp ecimen Type: PLASMA Comment: [place] [id number] on Dec 10, 2021@08:31 Tests performed on Conzoom (405) SN:[id number] Ordering Provid er: ISATU TODD Report Released Date/Time: Dec 10, 2021 07:22 AM Reporting Lab: [place] [facility] [address] [place] [facility] [place] [address] Performing Lab: [place] [facility] [address] [place] [facility] [place] [address] PHOSPHORUS 1.8 L 2.5-5.0 Dec 10, 2021 08:05 AM [place] UREA NITROGEN Specimen Type: PLASMA [facility] Comment: [place] [id number] on Dec 10, 2021@08:31 Tests performed on Conzoom (405) SN:[id number] Ordering Provid er: ISATU TODD Report Released Date/Time: Dec 10, 2021 07:22 AM Reporting Lab: [place] [facility] [address] [place] [facility] [place] [address] Performing Lab: [place] [facility] [address] [place] [facility] [place] [address] UREA NITROGEN 8 7-25 Dec 10, 2021 08:05 AM [place] [facility] GLUCOSE Sp ecimen Type: PLASMA Comment: [place] [id number] on Dec 10, 2021@08:31 Tests performed on Conzoom (405) SN:[id number] Ordering Provid er: ISATU TODD Report Released Date/Time: Dec 10, 2021 07:22 AM Reporting Lab: [place] [facility] [address] [facility] [address] Performing Lab: [place] [facility] [address] [facility] [address] GLUCOSE 144 H 65-100 Dec 10, 2021 08:05 AM [place] [facility] ELECTROLYTES Sp ecimen Type: PLASMA Comment: [place] [id number] on Dec 10, 2021@08:31 Tests performed on Conzoom (405) SN:[id number] Ordering Provid er: ISATU TODD Report Released Date/Time: Dec 10, 2021 07:22 AM Reporting Lab: [place] [facility] [address] [facility] [address] Performing Lab: [place] [facility] [address] [facility] [address] SODIUM 139 135-145 POTASSIUM 3.7 3.5-5.0 CHLORIDE 107 100-110 CARBON DIOXIDE 24 20-30 ANION GAP 8 4-16 Dec 10, 2021 08:05 [place] CREATININE WITH eGFR Specime n Type: PLASMA AM [facility] PANEL Comment: [place] [id number] on Dec 10, 2021@08:31 Tests performed on Pham jobsite123 (405) SN:[id number] Ordering Provid er: IASTU TODD Report Released Date/Time: Dec 10, 2021 07:22 AM Reporting Lab: [place] [facility] [address] [facility] [address] Performing Lab: [place] [facility] [address] [facility] [address] CREATININE 0.78 0.5-1.5 eGFR(CKD-EPI 2020) >90.0 >60 Dec 10, 2021 08:05 AM [place] [facility] CBC PROFILE Sp ecimen Type: BLOOD No comment enter ed. Ordering Provid er: ISATU TODD Report Released Date/Time: Dec 10, 2021 07:22 AM Reporting Lab: [place] [facility] [address] [facility] [address] Performing Lab: [place] [facility] [address] [facility] [address] WBC 7.0 4.5-11.0 RBC 4.54 4.23-5.66 HGB [...] 0.00 0-0 Dec 10, 2021 08:05 AM [facility] CALCIUM Sp ecimen Type: PLASMA Comment: [place] [id number] on Dec 10, 2021@08:31 Tests performed on Conzoom (405) SN:[id number] Ordering Provid er: ISATU TODD Report Released Date/Time: Dec 10, 2021 07:22 AM Reporting Lab: [facility] [address] [facility] [address] Performing Lab: [facility] [address] [facility] [address] CALCIUM 8.3 L 8.5-10.5 Dec 09, 2021 06:46 AM [place] [facility] MAGNESIUM Sp ecimen Type: PLASMA Comment: Tests performed on Conzoom (405) SN:[id number] Ordering Provid er: ISATU TODD Report Released Date/Time: Dec 08, 2021 10:23 AM Reporting Lab: [facility] [address] [facility] [address] Performing Lab: [facility] [address] [facility] [address] MAGNESIUM 1.6 1.6-2.6 Dec 09, 2021 [facility] P4 GLU,BUN,CREAT,LYTES,[place] Speci men Type: PLASMA 06:46 AM [facility] Comment: Tests performed on Conzoom (405) SN:[id number] Ordering Provid er: ISATU TODD Report Released Date/Time: Dec 08, 2021 05:00 PM Reporting Lab: [facility] [address] [facility] [address] Performing Lab: [facility] [address] [facility] [address] UREA NITROGEN 6 L 7-25 SODIUM 134 L 135-145 POTASSIUM 3.7 3.5-5.0 CHLORIDE 103 100-110 CARBON DIOXIDE 23 20-30 ANION GAP 8 4-16 GLUCOSE 112 H 65-100 CREATININE 0.70 0.5-1.5 CALCIUM 8.1 L 8.5-10.5 eGFR(CKD-EPI 2020) >90.0 >60 Dec 09, 2021 06:46 AM [facility] CBC PROFILE Sp ecimen Type: BLOOD No comment enter ed. Ordering Provid er: ISATU TODD Report Released Date/Time: Dec 08, 2021 05:00 PM Reporting Lab: [facility] [address] [facility] [address] Performing Lab: [facility] [address] [facility] [address] WBC 7.1 4.5-11.0 RBC 4.40 4.23-5.66 HGB [...] 0.00 0-0 Dec 08, 2021 06:39 AM [facility] [employer] [facility] MAGNESIUM Sp ecimen Type: PLASMA Comment: Testin g Performed on Conzoom (405) SN:[id number] Ordering Provid er: ISATU TODD Report Released Date/Time: Dec 07, 2021 10:32 AM Reporting Lab: [facility] [address] [facility] [address] Performing Lab: [facility] [address] [facility] [address] MAGNESIUM 1.5 L 1.6-2.6 Dec 08, 2021 [facility] [employer] T P4 GLU,BUN,CREAT,LYTES,CA Speci men Type: PLASMA 06:39 AM [facility] Comment: Testin g Performed on Conzoom (405) SN:[id number] Ordering Provid er: ISATU TODD Report Released Date/Time: Dec 07, 2021 10:32 AM Reporting Lab: [facility] T [facility] [address] [facility] [address] Performing Lab: [facility] [address] [facility] [address] UREA NITROGEN 6 L 7-25 SODIUM 136 135-145 POTASSIUM 3.3 L 3.5-5.0 CHLORIDE 104 100-110 CARBON DIOXIDE 22 20-30 ANION GAP 10 4-16 GLUCOSE 133 H 65-100 CREATININE 0.76 0.5-1.5 CALCIUM 8.4 L 8.5-10.5 eGFR(CKD-EPI 2020) >90.0 >60 Dec 08, 2021 06:39 AM [facility] [employer] [facility] CBC PROFILE Sp ecimen Type: BLOOD No comment enter ed. Ordering Provid er: ISATU TODD Report Released Date/Time: Dec 07, 2021 10:32 AM Reporting Lab: [facility] [address] [facility] [address] Performing Lab: [facility] [address] [facility] WBC 8.4 [...] NRBC 0.00 0-0 Dec 07, 2021 06:42 [facility] LIVER PROFILE Specimen Typ e: PLASMA AM [facility] Comment: Tests performed on Conzoom (405 SN:[id number] Ordering Provid er: PORFIRIO WALTERS Report Released Date/Time: Dec 06, 2021 06:57 PM Reporting Lab: [facility] [address] [facility] [address] Performing Lab: [facility] [address] [facility] [address] PROTEIN, TOTAL 5.7 L 6.0-8.5 ALBUMIN 2.4 L 3.2-5.0 BILIRUBIN, TOTAL 0.4 0.2-1.2 ALKALINE PHOSPHATASE 109 40-150 ALT(SGPT) 10 7-52 AST(SGOT) 15 5-34 FIB-4 SCORE 1.92 <2.67 Dec 07, 2021 [facility] GLU,BUN,CREAT,LYTES,CA Speci men Type: PLASMA 06:42 AM [facility] Comment: Tests performed on Conzoom (405) SN:[id number] Ordering Provid er: PORFIRIO WALTERS Report Released Date/Time: Dec 06, 2021 06:57 PM Reporting Lab: [place] [facility] [address] [facility] [address] Performing Lab: [place] [facility] [address] [facility] [address] UREA NITROGEN 9 7-25 SODIUM 135 135-145 POTASSIUM 3.5 3.5-5.0 CHLORIDE 103 100-110 CARBON DIOXIDE 22 20-30 ANION GAP 10 4-16 GLUCOSE 92 65-100 CREATININE 0.73 0.5-1.5 CALCIUM 8.0 L 8.5-10.5 eGFR(CKD-EPI 2020) >90.0 >60 Dec 07, 2021 06:42 AM [place] CBC PROFILE Specimen Type: BLOOD [facility] No comment enter ed. Ordering Provid er: PORFIRIO WALTERS Report Released Date/Time: Dec 06, 2021 06:57 PM Reporting Lab: [place] [facility] [address] [facility] [address] Performing Lab: [facility] [address] [facility] [address] WBC 5.7 4.5-11.0 RBC 4.15 L 4.23-5.66 [...] [facility] %) AUTOMATED Comment: Tests performed on Conzoom (405) SN:[id number] Ordering Provid er: ISATU TODD Report Released Date/Time: Dec 07, 2021 10:28 AM Reporting Lab: [place] [facility] [address] [facility] [address] Performing Lab: [place] [facility] [address] [facility] [address] RETICULOCYTES (%) AUTOMATED 1.23 0. 6-2.0 RETICULOCYTES (ABS) AUTOMATED 0.052 0.030-0.090 Dec 06, 2021 09:45 [place] MRSA SURVL NARES Specimen Ty pe: NARES PM [facility] DNA No comment enter ed. Ordering Provid er: ALVARO VARGHESE Report Released Date/Time: Dec 07, 2021 02:20 AM Reporting Lab: [place] [facility] [address] [facility] [address] Performing Lab: [place] [facility] [address] [facility] [address] MRSA SURVL NARES DNA NEGATIVE NEGATIVE Dec 06, 2021 06:00 [place] URINALYSIS W/REFLEX TO Speci men Type: URINE PM [facility] CULTURE No comment enter ed. Ordering Provid er: JELANI SÁNCHEZ Report Released Date/Time: Dec 06, 2021 11:57 AM Reporting Lab: [place] [facility] [address] [facility] [address] Performing Lab: [place] [facility] [address] [facility] [address] URINE COLOR Arlin YELLOW SPECIFIC GRAVITY 1.029 [...] 21, [place] [employer]IANT Comment: https://www.cdc.gov/coronavirus/2019-ncov/cases-updates/variant- surveillance/variant-info.html The [employer] SARS CoV 2 [employer] Assay-GX is a next-generation sequencing (NGS) [...] samples. The assay is run on the C[employer] W[employer] Sequencer, which performs automated library preparation, sequencing, analysis, and reporting. PM The sequence an alysis includes determination of viral phylogenetic lineage by comparison to the reference strain Wuhan-Hu-1, GenBank: [id number]. Sequence determination may not be possible owing [...] Dec 06, 2021 01:13 PM Reporting Lab: [facility] [address] [facility] [address] Performing Lab: [facility] [address] [facility] [address] SARS-CoV-2 CLADE() 22C (OMICRON) SARS-CoV-2 LINEAGE() BA.2.12.1 Dec 06, 2021 12:00 [facility] COVID-19 AG SCREEN Specimen Type: NASAL CAVITY PM [facility] PANEL BINAX(405) Comment: Testi ng Performed By: Mike Briscoe Ordering Provid er: JELANI SÁNCHEZ Report Released Date/Time: Dec 08, 2021 08:23 AM Reporting Lab: [facility] [address] [facility] [address] Performing Lab: [facility] [address] [facility] [address] COVID-19 AG SCRN(wrj BINAX) POSITIVE HH NE G Dec 06, 2021 12:00 PM [facility] LIVER PROFILE Sp ecimen Type: PLASMA Comment: Testin g Performed on Pham [employer] (405) SN:[id number] Ordering Provid er: JELANI SÁNCHEZ Report Released Date/Time: Dec 06, 2021 11:57 AM Reporting Lab: [facility] [address] [facility] [address] Performing Lab: [facility] [address] [facility] [address] PROTEIN, TOTAL 6.6 6.0-8.5 ALBUMIN 2.8 L 3.2-5.0 BILIRUBIN, TOTAL 0.6 0.2-1.2 ALKALINE PHOSPHATASE 134 40-150 ALT(SGPT) 13 7-52 AST(SGOT) 18 5-34 FIB-4 SCORE 1.94 <2.67 Dec 06, 2021 12:00 PM [facility] Sp ecimen Type: PLASMA Comment: Tests performed on Pham [employer] (405) SN:[id number] Ordering Provid er: JELANI SÁNCHEZ Report Released Date/Time: Dec 06, 2021 11:57 AM Reporting Lab: [facility] [address] [facility] [address] Performing Lab: [facility] [address] [facility] [address] TROPONIN II 0.03 0.00-0.29 Dec 06, 2021 [facility] P4 GLU,BUN,CREAT,LYTES,CA Speci men Type: PLASMA 12:00 PM [facility] Comment: Testin g Performed on Pham [employer] (405) SN:[id number] Ordering Provid er: JELANI SÁNCHEZ Report Released Date/Time: Dec 06, 2021 11:57 AM Reporting Lab: [facility] [address] [facility] [address] Performing Lab: [facility] [address] [facility] [address] UREA NITROGEN 13 7-25 SODIUM 138 135-145 POTASSIUM 3.8 3.5-5.0 CHLORIDE 103 100-110 CARBON DIOXIDE 23 20-30 ANION GAP 12 4-16 GLUCOSE 105 H 65-100 CREATININE 0.90 0.5-1.5 CALCIUM 8.7 8.5-10.5 eGFR(CKD-EPI 2020) >90.0 >60 Dec 06, 2021 12:00 PM [facility] BNP(P) Sp ecimen Type: PLASMA Comment: Tests performed on Pham [employer] Operator (405) SN:[id number] Ordering Provid er: JELANI SÁNCHEZ Report Released Date/Time: Dec 06, 2021 11:57 AM Reporting Lab: [facility] [address] [facility] [address] Performing Lab: [facility] [address] [facility] [address] BNP(P) 224.8 H 10-100 Dec 06, 2021 [place] COVID-19+FLU/RSV DIAGNOSTIC Spe cimen Type: NASOPHARYNX 12:00 PM [facility] PANEL(405) Comment: Tests performed on Soshowisexpert (405) Critical results called to and read back by: ALESHIA WILKINSON RN 12/06/21 @ 1312 Ordering Provid er: JELNAI SÁNCHEZ Report Released Date/Time: Dec 06, 2021 11:57 AM Reporting Lab: [facility] [address] [facility] [address] Performing Lab: [place] [facility] [address] [facility] [address] FLU A(PCR) NEGATIVE NEGATIVE FLU B(PCR) NEGATIVE NEGATIVE RSV(PCR) NEGATIVE NEGATIVE COVID-19([id number]) DETECTED HH NO T DETECTED Dec 06, 2021 12:00 [facility] Sp ecimen Type: BLOOD No comment enter ed. Ordering Provid er: JELANI SÁNCHEZ Report Released Date/Time: Dec 06, 2021 11:57 AM Reporting Lab: [facility] [address] [facility] [address] Performing Lab: [facility] [address] [facility] [address] WBC 7.2 4.5-11.0 RBC 4.86 4.23-5.66 HGB [...] 2021 07:43 /min mm[Hg] RIVER PM T [facility] Dec 12, 0 WHITE 2021 07:37 RIVER PM J[place] [facility] Dec 12, 0 WHITE 2021 02:17 RIVER PM T [facility] Dec 12, 98 F 82 127/76 18 /min 97 % WHITE 2021 02:01 /min mm[Hg] RIVER PM T [facility] Dec 12, 0 2021 10:59 [...] TOBACCO USE > 7 YEARS AGO [facility] Tobacco Use History This section includes a history of the smoking, or tobacco- related health factors, that were collected on or before the date of the Encounter. The data comes from the [place] facility where the Encounter took place. Date/Time Smoking Status/Tobacco Use Comment [facility] Apr 01, 2020 01:16 PM QUIT TOBACCO USE 1-7 YEARS AGO [facility] Mar 24, 2020 03:00 PM QUIT [facility]BACCO USE [facility] Feb 21, 2019 04:11 PM QUIT TOBACCO USE 1-7 YEARS AGO [facility] Feb 20, 2019 03:38 PM QUIT TOBACCO USE 1-7 YEARS AGO [facility] Feb 03, 2019 09:50 AM QUIT TOBACCO USE 1-7 YEARS AGO [facility] May 25, 2016 11:53 PM QUIT [facility]BAC[facility] May 23, 2016 06:57 PM QUIT TOBACCO USE > 7 YEARS AGO [facility] May 19, 2016 03:55 PM QUIT TOBACCO USE IN PAST YEAR [facility] May 19, 2016 10:29 AM QUIT TOBACCO USE 1-7 YEARS AGO [facility] May 01, 2016 07:26 PM QUIT TOBACCO USE IN PAST YEAR [facility] May 01, 2016 03:11 PM QUIT [...] W/WO CONTRAST: MARYELLEN LONG LUCAS LARES N [id number] -1950 [facility] Exm Date: DEC 13, 2021@12:57 Req Phys: ISATU TODD Loc: OP Unknown/0 12-15-2021@13:20 Img Loc: MRI IMAGING (OOS) Service: ZZGENERAL MEDICINE (Case [id number] COMPLETE) MRI ABDOMEN W/WO CONTRAST (M RI Detailed) CPT:67196 Reason for Study: further characterization of a [...] new lyphadenopathy REQUESTING MD: Isatu Todd PAGER: [phone] PHONE: [phone] Weight: 232.2 lb [105.32 kg] (12/12/2021 05:00) [...] patient will need to arrange for a utility driver to take him/her home after the [...] 15, 2021 Date Verified: DEC 15, 2021 Hydraulic Riveter E-Sig:/ES/MARYELLEN LONG Report: MRI ABDOMEN W/WO CONTRAST [...] MALIGNANCY Primary Interpreting Staff: MARYELLEN LONG Staff (Hydraulic Riveter) / Dec 10, 2021 09:[address] ABDOMEN & PELVIS: [facility] BENITA MEEKLAS N [id number] -1950 SERVICE [facility] Ex Date: DEC 10, 2021@09:30 Req Phys: ISATU TODD Loc: 1S MED/12-10@10:57 Img Loc: CT SCAN (OOS) Service: [facility] MEDICINE (Case [id number] COMPLETE) CT ABD & PELVIS WITHOUT CONT RAST (CT Detailed) CPT:71071 Reason for Study: 71 yo male with [...] INDEX - NO HEIGHTS FOUND Pager number: [phone] STAT orders MUST be call ed to RADIOLOGY [phone] to speak to the appropriate hydro technician. Report Status: Verified Date Reported: DEC 10, 2021 Date Verified: DEC 10, 2021 Hydraulic Riveter E-Sig: Report: EXAM: CT abdomen and pelvis [...] ph nodes. READING PHYSICIAN: Ramone Munoz D.O. [phone] 12/10/2021 10:55 EDT [facility] National Teleradiology Program [phone] (For Medical Practitioner Use Only ) [address] [facility], [facility] [address], [address] [place] [address] Attention Patients / Veterans: If you have ques tions or concerns about these test results, please contact your o rdering provider or primary care team. Primary Diagnostic Code: SIGNIFICANT ABNORMALIT Y, ATTN NEEDED Primary Interpreting Staff: RADIOLOGY,OUTSIDE SERVICE, Staff Physician / Dec 09, 2021 07:34 AM BASW (MODIFIED): JESSIE CHENEY TARA ER JCLUCAS LARES N [id number] -1950 [facility] Exm Date: DEC 09, 2021@07:34 Req Phys: PEYTONISATU Manjarrez Loc: 1S MED/12-09@11:26 Img Loc: XRAY (OOS) Service: [facility] MEDICINE (Case [id number] COMPLETE) BASW (MODIFIED) (RAD Detaile d) CPT:94354 Contrast Media : Barium Reason for Study: dysphagia ?esophageal spasm Clinical History: Report Status: Verified Date Reported: DEC 09, 2021 Date Verified: DEC 09, 2021 Hydraulic Riveter E-Sig:/ES/JESSIE CHENEY Report: BASW (MODIFIED) , 12/09/2021 [...] REQUIRED Primary Interpreting Staff: JESSIE CHENEY, RADIOLOGIST (Hydraulic Riveter) /TLC Dec 06, 2021 12:[address] CHEST (INCLUDES ADRENALS): JESSIE CHENEY LUCAS LARES N [id number] -1950 [facility] Exm Date: DEC 06, 2021@12:59 Req Phys: JELANI SÁNCHEZ Pat Loc: [facility] ED DAYS M 1RD (Req'g Loc) Img Loc: CT SCAN (OOS) Service: Unknown (Case [id number] COMPLETE) CT THORAX W/O CONT (CT Detai led) CPT:71727 Reason for Study: Opacification right chest Clinical History: No contrast allergy BUN: 13 (12/06/21 12:00) CREATI: 0.90 (12/06/21 12:00) eGFR 05/16/21 09:43 52 L Weight: 232.6 lb [105.51 kg] (12/06/2021 11:40) BODY MASS INDEX - NO HEIGHTS FOUND Pager number: [phone] STAT orders MUST be called t o RADIOLOGY [phone] to speak to the appropriate hydro technician. Indications - Other: Opacification right chest, covid positive, lung cancer histo Report Status: Verified Date Reported: DEC 06, 2021 Date Verified: DEC 06, 2021 Hydraulic Riveter E-Sig:/ES/JESSIE CHENEY Report: CT THORAX W/O CONT [...] REQUIRED Primary Interpreting Staff: JESSIE CHENEY, RADIOLOGIST (Hydraulic Riveter) Primary Interpreting Resident: PRINCE CHAMPION, Resident /BR Dec 06, 2021 11:58 AM CHEST SINGLE VIEW: JESSIE CHENEY DOUGLAS N [id number] -1950 M [facility] Exm Date: DEC 06, 2021@11:58 Req Phys: GONZALO,JELANI Link Pat Loc: [facility] ED DAYS M 1RD (Req'g Loc) Img Loc: XRAY (OOS) Service: Unknown (Case [id number] COMPLETE) CHEST SINGLE VIEW (RAD Detai led) CPT:57253 Proc Modifiers : PORTABLE EXAM Reason for Study: SOB, home covid test positive Clinical History: Report Status: Verified Date Reported: DEC 06, 2021 Date Verified: DEC 06, 2021 Hydraulic Riveter E-Sig:/ES/JESSIE CHENEY Report: Exam type: Chest x-ray [...] REQUIRED Primary Interpreting Staff: JESSIE CHENEY, RADIOLOGIST (Hydraulic Riveter) /TLC Pathology Reports: +/- 30 days of [...] MILLER LOCAL TITLE: LR SURGICAL PATHOLOGY REPORT [facility] STANDARD TITLE: PATHOLOGY REPORT DATE OF NOTE: JAN 03, 2022@10:28:01 ENTRY DATE: JAN 03, 2022@10:28:01 AUTHOR: NIURKA MILLER EXP COSIGNER: URGENCY: STATUS: COMPLETED $APHDR Reporting Lab: [facility] [CLIA# [id number]] [address] [place] [address] - - - - - - [...] automatically d ocumented from SURGERY package case #[id number] Field (#32) PRINCIPAL PRE-OP DIAGNOSIS, (#.72) OTHER [...] automatically d ocumented from SURGERY package case #[id number] Field (#34) PRINCIPAL POST-OP DIAG, (#.74) OTHER [...] Label: Lucas Meek Paperwork: Lucas Meek Cassette: [id number];..;KALYANI;.;405;[id number] Specimen is labeled: ES bx Received in formalin are several pieces of pale boyd and brown tissue, 1.2 x 0.7 cm in aggregate. Submitted entirely in 1 cassette [id number];..;KALYANI;.;405;[id number] SAW 12/15/2021 Microscopic exam: *+* MODIFIED REPORT *+* (Last modified: JAN 03, 2022@09:30:20 typed by NIURKA WADDELL) DIAGNOSIS: A. 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 Kendell long. TIARA Coombs was notified on 12/21/21. Modified on 01/03/22 to include report from [facility] stating that tumor is NEGATIVE for her2/ matheus amplification. The attending pathologist who signature mansoor ears on this report has reviewed all diagnostic slides and has edited t he gross and/or microscopic portion of this report in rendering the final pathologic diagnosis. [address] [address] CPT: 77526 /emely/ NIURKA Yeung MD Signed Jan 03, 2022@10:28 Performing Laboratory: Surgical Pathology Report Performed By: [facility] [CLIA# [id number]] [address] [place] [address] $FTR - - - - - [...] - - LUCAS MEEK STANDARD FORM 515 ID:[id number] SEX:M :1950 AGE: 71 LOC: SDM END PCP: Isatu Todd /emely/ NIURKA MILLER Staff Signed: 01/03/2022 10:28 Dec 21, 2021 11:46 AM LR SURGICAL PATHOLOGY REPORT: STEFANY MILLER [facility] LOCAL TITLE: LR SURGICAL PATHOLOGY REPORT [facility] STANDARD TITLE: PATHOLOGY REPORT DATE OF NOTE: DEC 21, 2021@11:46:59 ENTRY DATE: DEC 21, 2021@11:46:59 AUTHOR: NIURKA MILLER EXP COSIGNER: URGENCY: STATUS: COMPLETED $APHDR Reporting Lab: [facility] [CLIA# [id number]] [address] [place] [address] - - - - - - [...] automatically d ocumented from SURGERY package case #[id number] Field (#32) PRINCIPAL PRE-OP DIAGNOSIS, (#.72) OTHER [...] automatically d ocumented from SURGERY package case #[id number] Field (#34) PRINCIPAL POST-OP DIAG, (#.74) OTHER [...] Label: Lucas Meek Paperwork: Lucas Meek Cassette: [id number];..;KALYANI;.;405;[id number] Specimen is labeled: ES bx Received in formalin are several pieces of pale boyd and brown tissue, 1.2 x 0.7 cm in aggregate. Submitted entirely in 1 cassette [id number];..;KALYANI;.;405;[id number] SAW 12/15/2021 Microscopic exam: DIAGNOSIS: A. 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 Kendell long. TIARA Coombs was notified on 12/21/21. The attending pathologist who signature mansoor ears on this report has reviewed all diagnostic slides and has edited t he gross and/or microscopic portion of this report in rendering the final pathologic diagnosis. [address] [address] CPT: 99792 /emely/ NIURKA Yeung MD Signed Dec 21, 2021@11:46 Performing Laboratory: Surgical Pathology Report Performed By: [facility] [CLIA# [id number]] [address] [place] [address] $FTR - - - - - [...] - - LUCAS MEEK STANDARD FORM 515 ID:[id number] SEX:M :1950 AGE: 71 LOC: SDM END PCP: Isatu oTdd /charmaine Yeung MD Signed: 12/21/2021 11:46 Dec 06, 2021 03:30 PM LR MICROBIOLOGY REPORT: [facility] Reporting Lab: [facility] [CLIA# [id number]] [address] [place] [address] Accession [UID]: [id number] [[id number]] Receiv ed: Dec 06, 2021@16:14 Collection sample: BLOOD CUL T BOTTLE(NIRMAL/AERO)Collection date: Dec 06, 2021 15:30 Site/Specimen: BLOOD Provider: JELANI SÁNCHEZ Comment on specimen: LAC Test(s) ordered: BLOOD CULTURE ANAEROBI C....... completed: Dec 12, 2021 06:18 * BACTERIOLOGY FINAL REPORT => Dec 12, 2021 06:1 8 TECH CODE: [id number] Bacteriology Remark(s): NO GROWTH IN 5 DAYS =--=--=--=--=--=--=--=--=--=--=--=--=--= --=--=--=--=--=--=--=--=--=--=--=--=-- Performing Laboratory: Bacteriology Report Performed By: [facility] [CLIA# [id number]] [address] [place] [address] Dec 06, 2021 03:30 PM LR MICROBIOLOGY REPORT: [facility] Reporting Lab: [facility] [CLIA# [id number]] [address] [place] [address] Accession [UID]: [id number] [[id number]] Receiv ed: Dec 06, 2021@16:14 Collection sample: BLOOD CUL T BOTTLE(NIRMAL/AERO)Collection date: Dec 06, 2021 15:30 Site/Specimen: BLOOD Provider: JELANI SÁNCHEZ Comment on specimen: LAC Test(s) ordered: BLOOD CULTURE AEROBIC. ........ completed: Dec 12, 2021 06:17 * BACTERIOLOGY FINAL REPORT => Dec 12, 2021 06:1 7 TECH CODE: [id number] Bacteriology Remark(s): NO GROWTH IN 5 DAYS =--=--=--=--=--=--=--=--=--=--=--=--=--= --=--=--=--=--=--=--=--=--=--=--=--=-- Performing Laboratory: Bacteriology Report Performed By: [facility] [CLIA# [id number]] [address] [place] [address]
--- OUTSIDE RECORDS SUMMARY | 2022-01-19 08:42 | XMS_ITS ---
DAILY HOSPITALIZATION DATA [facility] Encounter Summary Created on:December 12, 2021 Patient:LUCAS MEEK Sex:Male :1950 Author Organization [facility] Address [address] [place] [id number] Support Name Relationship Address Phone YUSRA MEEK Unavailable [address] [place] [address] YUSRA MEEK Unavailable [address] [place] [facility] [place] [address] CLAY MOSLEY Unavailable Unavailable SJ SANTACRUZ Unavailable [...] MEDICARE MEDICARE PART Jun 18, PART A [id number] DO KALYANI PATIENT (WNR) (M) A 2016 13A 1 [place]AS MEDICARE MEDICARE PART Jun 18, PART B [id number] DO KALYANI PATIENT (WNR) (M) B 2017 13A 1 [place] MEDICARE MEDICARE PART Jun 18, PART B [id number] KALYANIDO PATIENT (WNR) (M) B 2017 VH81 2 [place] MEDICARE MEDICARE PART Jun 18, PART A [id number] DO KALYANI PATIENT (WNR) (M) A 2017 VH81 2 [place] UNITED MEDICARE MCR(W Jun 18 [id number] Luz MEEK PATIENT HEALTHCARE ADVANTAGE NR) 2021 37 0 [facility] (WNR) Selected Encounter This section includes the information on record at [place] for the Encounter. Date/Time Encounter Type Encounter Description Reason Provider Source Dec 12, 2021 09:40 Inpatient Visit DAILY HOSPITALIZATION DATA [...] AM AMBULATORY - NONE [place] [facility] Jan 06, 2022 02:00 PM [place] [facility] Jan 10, 2022 11:30 AM AMBULATORY - MEDICINE [facility] Jan 24, 2022 08:00 [place] [facility] Feb 21, 2022 10:00 AM AMBUL[place]ORY - [place] [facility] Mar 21, 2022 10:30 AM AMBULATORY [...] The data comes from all [place] treatment [facility]. Test Date/Time Test Type Test Details Facility Name October 31, 2021 07:37 AM Consult Order COMMUNITY CARE-EGD [facility] Cons Case Picker's Choice November 15, 2021 10:37 AM Consult Order [facility] CARE-PODIATRY Cons Case Picker's Choice Dec 06, 2021 12:52 PM [place] Infusion Order [facility] Dec 06, 2021 03:24 PM [place]acy [place] [facility] Dec 06, 2021 03:40 PM [place]acy [place] [facility] Dec 15, 2021 08:41 AM Consult Order SPEECH PATHOLOGY [place] OUTPAT[place] Cons [facility] Case Picker's Choice Jan 15, 2022 10:08 PM Consult Order [facility] CARE-PALLIATIVE CARE Cons Case Picker's Choice Lab Results: +/- 30 days of [...] Reference Range Comment Dec 15, 2021 [place] P4 GLU,BUN,CREAT,LYTES,CA Speci men Type: PLASMA 06:43 AM [facility] Comment: Tests performed on GoodLux Technology (405) SN:[id number] Ordering Provid er: ISATU TODD Report Released Date/Time: Dec 11, 2021 07:42 AM Reporting Lab: [facility] T [facility] [address] [facility] [address] Performing Lab: [facility] [address] [facility] [address] UREA NITROGEN 9 7-25 SODIUM 137 135-145 [...] Lab: [facility] T [facility] [address] [facility] [address] Performing Lab: [facility] [address] [facility] [address] WBC 5.7 4.5-11.0 RBC 4.22 L 4.23-5.66 [...] NRBC 0.00 0-0 Dec 14, 2021 [facility] CYTOGENETIC Specimen Type: ESOPHAGUS 02:59 PM VAOC FISH([facility]) Comment: ~For T est: CYTOGENETIC FISH([facility]) ~FISH HER 2 NUE, FFPE See full report in EsLife Image display viewer/tab#LAB-Reference Ordering Provid er: NIURKA MILLER Report Released Date/Time: Dec 21, 2021 12:11 PM Reporting Lab: [facility] [address] [facility] [address] Performing Lab: [facility] CYTOGENETIC FISH([facility]) comment Dec 14, 2021 [facility] P4 GLU,BUN,CREAT,LYTES,CA Speci men Type: PLASMA 06:27 AM [facility] Comment: Tests performed on GoodL[employer] Technology (405) SN:[id number] Ordering Provid er: ISATU TODD Report Released Date/Time: Dec 11, 2021 07:42 AM Reporting Lab: [facility] [address] [facility] [address] Performing Lab: [facility] [address] [facility] [address] UREA NITROGEN 10 7-25 SODIUM 137 135-145 [...] AM Reporting Lab: [facility] [address] [facility] [address] Performing Lab: [facility] [address] [facility] [address] WBC 6.0 4.5-11.0 RBC 4.29 4.23-5.66 HGB [...] NRBC 0.00 0-0 Dec 13, 2021 [facility] P4 GLU,BUN,CREAT,LYTES,CA Speci men Type: PLASMA 06:34 AM [facility] Comment: Tests performed on [employer] (405) SN:[id number] Ordering Provid er: ISATU TODD Report Released Date/Time: Dec 11, 2021 07:42 AM Reporting Lab: [facility] [address] [facility] [address] Performing Lab: [facility] [address] [facility] [address] UREA NITROGEN 12 7-25 SODIUM 136 135-145 [...] AM Reporting Lab: [facility] [address] [facility] [address] Performing Lab: [facility] [address] [facility] [address] WBC 5.6 4.5-11.0 RBC 4.28 4.23-5.66 HGB [...] NRBC 0.00 0-0 Dec 12, 2021 [facility] P4 GLU,BUN,CREAT,LYTES,CA Speci men Type: PLASMA 06:21 AM [facility] Comment: Tests performed on [employer] (405) SN:[id number] Ordering Provid er: ISATU TODD Report Released Date/Time: Dec 11, 2021 07:42 AM Reporting Lab: [facility] [address] [facility] [address] Performing [facility]: [facility] [address] [facility] [address] UREA NITROGEN 11 7-25 SODIUM 139 135-145 [...] Dec 10, 2021 07:22 AM Reporting Lab: [facility] [address] [facility] [address] Performing Lab: [facility] [address] [facility] [address] WBC 5.5 4.5-11.0 RBC 4.37 4.23-5.66 HGB [...] 0.00 0-0 Dec 12, 2021 06:00 AM [email or web address] [facility] MAGNESIUM Sp ecimen Type: PLASMA Comment: Testin g Performed on GoodL[employer] Technology (405) SN:[id number] Ordering Provid er: ISATU TODD Report Released Date/Time: Dec 12, 2021 08:24 AM Reporting Lab: [place] Knock KnockT [facility] [address] [facility] [address] Performing Lab: [place] Knock KnockT [employer] [address] [facility] [address] MAGNESIUM 1.8 1.6-2.6 Dec 12, 2021 06:00 AM [email or web address] PHOSPHORUS Sp ecimen Type: PLASMA Comment: Testin g Performed on [employer] (405) SN:[id number] Ordering Provid er: ISATU TODD Report Released Date/Time: Dec 12, 2021 08:24 AM Reporting Lab: [place] Knock KnockT [facility] [address] [facility] [address] Performing Lab: [place] Knock KnockT [employer] [address] [facility] [address] PHOSPHORUS 3.1 2.5-5.0 Dec 11, 2021 06:15 AM [place] Knock KnockT [employer] ELECTROLYTES Sp ecimen Type: PLASMA Comment: Tests performed on [employer] (405) SN:[id number] Ordering Provid er: ISATU TODD Report Released Date/Time: Dec 10, 2021 07:22 AM Reporting Lab: [place] Knock KnockT [facility] [address] [facility] [address] Performing Lab: [place] Knock KnockT [facility] [address] [facility] [address] SODIUM 137 135-145 POTASSIUM 4.3 3.5-5.0 CHLORIDE 108 100-110 CARBON DIOXIDE 20 20-30 ANION GAP 9 4-16 Dec 11, 2021 06:15 AM [place] Montalvo SystemsT [facility] CBC PROFILE Sp ecimen Type: BLOOD Comment: Result s checked Ordering Provid er: ISATU TODD Report Released Date/Time: Dec 10, 2021 07:22 AM Reporting Lab: [place] OMEGAT [facility] [address] [facility] [address] Performing Lab: [facility] OMEGAT [facility] [address] [facility] [address] WBC 5.8 4.5-11.0 RBC 4.37 4.23-5.66 HGB [...] 0.00 0-0 Dec 11, 2021 06:00 AM [facility] PHOSPHORUS Sp ecimen Type: PLASMA Comment: Tests performed on [employer] (591) SN:[id number] Results checked Ordering Provid er: ISATU TODD Report Released Date/Time: Dec 11, 2021 07:44 AM Reporting Lab: [facility] [address] [facility] [address] Performing Lab: [place] OMEGAT DCMROC [address] [facility] [address] PHOSPHORUS 3.0 2.5-5.0 Dec 10, 2021 08:05 AM [place] [facility] MAGNESIUM Sp ecimen Type: PLASMA Comment: [place] [id number] on Dec 10, 2021@08:31 Tests performed on [employer] (405) SN:[id number] Ordering Provid er: ISATU TODD Report Released Date/Time: Dec 10, 2021 07:22 AM Reporting Lab: [place] [facility] [address] [place] [facility] [place] [address] Performing Lab: [place] [facility] [address] [place] [facility] [place] [address] MAGNESIUM 1.7 1.6-2.6 Dec 10, 2021 08:05 AM [place] [facility] PHOSPHORUS Sp ecimen Type: PLASMA Comment: [place] [id number] on Dec 10, 2021@08:31 Tests performed on [employer] (405) SN:[id number] Ordering Provid er: ISATU TODD Report Released Date/Time: Dec 10, 2021 07:22 AM Reporting Lab: [place] [facility] [address] [place] [facility] [place] [address] Performing Lab: [place] [facility] [address] [place] [facility] [place] [address] PHOSPHORUS 1.8 L 2.5-5.0 Dec 10, 2021 08:05 AM [place] UREA NITROGEN Specimen Type: PLASMA [facility] Comment: [place] [id number] on Dec 10, 2021@08:31 Tests performed on [employer] (405) SN:[id number] Ordering Provid er: ISATU TODD Report Released Date/Time: Dec 10, 2021 07:22 AM Reporting Lab: [place] [facility] [address] [place] [facility] [place] [address] Performing Lab: [place] [facility] [address] [place] [facility] [place] [address] UREA NITROGEN 8 7-25 Dec 10, 2021 08:05 AM [place] [facility] GLUCOSE Sp ecimen Type: PLASMA Comment: [place] [id number] on Dec 10, 2021@08:31 Tests performed on [employer] (405) SN:[id number] Ordering Provid er: ISATU TODD Report Released Date/Time: Dec 10, 2021 07:22 AM Reporting Lab: [place] [facility] [address] [facility] [address] Performing Lab: [place] [facility] [address] [facility] [address] GLUCOSE 144 H 65-100 Dec 10, 2021 08:05 AM [place] [facility] CALCIUM Sp ecimen Type: PLASMA Comment: [place] [id number] on Dec 10, 2021@08:31 Tests performed on [employer] (405) SN:[id number] Ordering Provid er: ISATU TODD Report Released Date/Time: Dec 10, 2021 07:22 AM Reporting Lab: [place] [facility] [address] [facility] [address] Performing Lab: [place] [facility] [address] [facility] [address] CALCIUM 8.3 L 8.5-10.5 Dec 10, 2021 08:05 AM [place] [facility] ELECTROLYTES Sp ecimen Type: PLASMA Comment: [place] [id number] on Dec 10, 2021@08:31 Tests performed on Pham Trovit (405) SN:[id number] Ordering Provid er: ISATU TODD Report Released Date/Time: Dec 10, 2021 07:22 AM Reporting Lab: [place] [facility] [address] [facility] [address] Performing Lab: [place] [facility] [address] [facility] [address] SODIUM 139 135-145 POTASSIUM 3.7 3.5-5.0 CHLORIDE 107 100-110 CARBON DIOXIDE 24 20-30 ANION GAP 8 4-16 Dec 10, 2021 08:05 [place] CREATININE WITH eGFR Specime n Type: PLASMA AM [facility] PANEL Comment: [place] [id number] on Dec 10, 2021@08:31 Tests performed on [employer] (405) SN:[id number] Ordering Provid er: ISATU TODD Report Released Date/Time: Dec 10, 2021 07:22 AM Reporting Lab: [place] [facility] [address] [facility] [address] Performing Lab: [place] [facility] [address] [facility] [address] CREATININE 0.78 0.5-1.5 eGFR(CKD-EPI 2020) >90.0 >60 Dec 10, 2021 08:05 AM [facility] CBC PROFILE Sp ecimen Type: BLOOD No comment enter ed. Ordering Provid er: ISATU TODD Report Released Date/Time: Dec 10, 2021 07:22 AM Reporting Lab: [place] OMEGAT [facility] [address] [facility] [address] Performing Lab: [place] OMEGAT [facility] [address] [facility] [address] WBC 7.0 4.5-11.0 RBC 4.54 4.23-5.66 HGB [...] 0.00 0-0 Dec 09, 2021 06:46 AM [facility] MAGNESIUM Sp ecimen Type: PLASMA Comment: Tests performed on [employer] (951) SN:[id number] Ordering Provid er: ISATU TODD Report Released Date/Time: Dec 08, 2021 10:23 AM Reporting Lab: [facility] [address] [facility] [address] Performing Lab: [facility] [address] [facility] [address] MAGNESIUM 1.6 1.6-2.6 Dec 09, 2021 [facility] P4 GLU,BUN,CREAT,LYTES,CA Speci men Type: PLASMA 06:46 AM [facility] Comment: Tests performed on [employer] (405) SN:[id number] Ordering Provid er: ISATU TODD Report Released Date/Time: Dec 08, 2021 05:00 PM Reporting Lab: [facility] [address] [facility] [address] Performing Lab: [facility] [address] [facility] [address] UREA NITROGEN 6 L 7-25 SODIUM 134 [...] PM Reporting Lab: [facility] [address] [facility] [address] Performing Lab: [facility] [address] [facility] [address] WBC 7.1 4.5-11.0 RBC 4.40 4.23-5.66 HGB [...] 0.00 0-0 Dec 08, 2021 06:39 AM [facility] [employer]uc[employer] T [facility] MAGNESIUM Sp ecimen Type: PLASMA Comment: Testin g Performed on [employer] (405) SN:[id number] Ordering Provid er: ISATU TODD Report Released Date/Time: Dec 07, 2021 10:32 AM Reporting Lab: [facility] [address] [facility] [address] Performing Lab: [facility] [address] [facility] [address] MAGNESIUM 1.5 L 1.6-2.6 Dec 08, 2021 BLY[place] 2Duche T P4 GLU,BUN,CREAT,LYTES,CA Speci men Type: PLASMA 06:39 AM [facility] Comment: Testin g Performed on [employer] (405) SN:[id number] Ordering Provid er: ISATU TODD Report Released Date/Time: Dec 07, 2021 10:32 AM Reporting Lab: [employer] T [facility] [address] [facility] [address] Performing Lab: [facility] [address] [facility] [address] UREA NITROGEN 6 L 7-25 SODIUM 136 135-145 POTASSIUM 3.3 L 3.5-5.0 CHLORIDE 104 100-110 CARBON DIOXIDE 22 20-30 ANION GAP 10 4-16 GLUCOSE 133 H 65-100 CREATININE 0.76 0.5-1.5 CALCIUM 8.4 L 8.5-10.5 eGFR(CKD-EPI 2020) >90.0 >60 Dec 08, 2021 06:39 AM [place] 2Duche T [facility] CBC PROFILE Sp ecimen Type: BLOOD No comment enter ed. Ordering Provid er: ISATU TODD Report Released Date/Time: Dec 07, 2021 10:32 AM Reporting Lab: [facility] [address] [facility] [address] Performing Lab: [facility] [address] [facility] [address] WBC 8.4 4.5-11.0 RBC 4.75 4.23-5.66 HGB [...] ABSOLUTE NRBC 0.00 0-0 Dec 07, 2021 [facility] P4 GLU,BUN,CREAT,LYTES,CA Speci men Type: PLASMA 06:42 AM [facility] Comment: Tests performed on [employer] (405 SN:[id number] Ordering Provid er: PORFIRIO WALTERS Report Released Date/Time: Dec 06, 2021 06:57 PM Reporting Lab: [facility] [address] [facility] [address] Performing Lab: [facility] [address] [facility] [address] UREA NITROGEN 9 7-25 SODIUM 135 135-145 POTASSIUM 3.5 3.5-5.0 CHLORIDE 103 100-110 CARBON DIOXIDE 22 20-30 ANION GAP 10 4-16 GLUCOSE 92 65-100 CREATININE 0.73 0.5-1.5 CALCIUM 8.0 L 8.5-10.5 eGFR(CKD-EPI 2020) >90.0 >60 Dec 07, 2021 06:42 [place] LIVER PROFILE Specimen Typ e: PLASMA AM [facility] Comment: Tests performed on Nephros [employer] Physical Education (405) SN:[id number] Ordering Provid er: PORFIRIO WALTERS Report Released Date/Time: Dec 06, 2021 06:57 PM Reporting Lab: [facility] [address] [facility] [address] Performing Lab: [facility] [address] [facility] [address] PROTEIN, TOTAL 5.7 L 6.0-8.5 ALBUMIN 2.4 L 3.2-5.0 BILIRUBIN, TOTAL 0.4 0.2-1.2 ALKALINE PHOSPHATASE 109 40-150 ALT(SGPT) 10 7-52 AST(SGOT) 15 5-34 FIB-4 SCORE 1.92 <2.67 Dec 07, 2021 06:42 AM [facility] CBC PROFILE Specimen Type: BLOOD [facility] No comment enter ed. Ordering Provid er: PORFIRIO WALTERS Report Released Date/Time: Dec 06, 2021 06:57 PM Reporting Lab: [facility] [address] [facility] [address] Performing Lab: [facility] [address] [facility] [address] WBC 5.7 4.5-11.0 RBC 4.15 L 4.23-5.66 [...] [facility]AM[facility] %) AUTOMATED Comment: Tests performed on [employer] (405) SN:[id number] Ordering Provid er: ISATU TODD Report Released Date/Time: Dec 07, 2021 10:28 AM Reporting Lab: [place] [facility] [address] [facility] [address] Performing Lab: [place] [facility] [address] [facility] [address] RETICULOCYTES (%) AUTOMATED 1.23 0. 6-2.0 RETICULOCYTES (ABS) AUTOMATED 0.052 0.030-0.090 Dec 06, 2021 09:45 [place] MRSA SURVL NARES Specimen Ty pe: NARES PM [facility] DNA No comment enter ed. Ordering Provid er: ALVARO VARGHESE Report Released Date/Time: Dec 07, 2021 02:20 AM Reporting Lab: [place] [facility] [address] [facility] [address] Performing Lab: [place] [facility] [address] [facility] [address] MRSA SURVL NARES DNA NEGATIVE NEGATIVE Dec 06, 2021 06:00 [place] URINALYSIS W/REFLEX TO Speci men Type: URINE PM [facility] CULTURE No comment enter ed. Ordering Provid er: JELANI SÁNCHEZ Report Released Date/Time: Dec 06, 2021 11:57 AM Reporting Lab: [place] [facility] [address] [facility] [address] Performing Lab: [place] [facility] [address] [facility] [address] URINE COLOR Arlin YELLOW SPECIFIC GRAVITY 1.029 [...] 21, [place] VARIANT Comment: https://www.cdc.gov/coronavirus/2019-ncov/cases-updates/variant- surveillance/variant-info.html The [employer] SARS CoV 2 [employer] Research Assay-GX is a next-generation sequencing (NGS) assa 2021 [facility] SEQUENCING y that determine s the complete genome sequence of the SARS-CoV-2 virus. The assay contains variant-tolerant primers to broaden and improve the coverage for variant detection and increase the sensitivity 12:00 [facility] PNL(WH) of the panel to enable detection from lower viral titer samples. The assay is run on the [employer] Sequencer, which performs automated library preparation, sequencing, analysis, and reporting. PM The sequence an alysis includes determination of viral phylogenetic lineage by comparison to the reference strain Wuhan-Hu-1, GenBank: [id number]. Sequence determination may not be possible owing [...] Dec 06, 2021 01:13 PM Reporting Lab: [facility] [address] [facility] [address] Performing Lab: [facility] [address] [facility] [address] SARS-CoV-2 CLADE() 22C (OMICRON) SARS-CoV-2 LINEAGE() BA.2.12.1 Dec 06, 2021 12:00 [facility] COVID-19 AG SCREEN Specimen Type: NASAL CAVITY PM [facility] PANEL BINAX(405) Comment: Testi ng Performed By: Mike Briscoe Ordering Provid er: JELANI SÁCNHEZ Report Released Date/Time: Dec 08, 2021 08:23 AM Reporting Lab: [facility] [address] [facility] [address] Performing Lab: [facility] [address] [facility] [address] COVID-19 AG SCRN(wrj BINAX) POSITIVE HH NE G Dec 06, 2021 12:00 PM [facility] LIVER PROFILE Sp ecimen Type: PLASMA Comment: Testin g Performed on Pham Professor Of Physical Education (405) SN:[id number] Ordering Provid er: JELANI SÁNCHEZ Report Released Date/Time: Dec 06, 2021 11:57 AM Reporting Lab: [facility] [address] [facility] [address] Performing Lab: [facility] [address] [facility] [address] PROTEIN, TOTAL 6.6 6.0-8.5 ALBUMIN 2.8 L 3.2-5.0 BILIRUBIN, TOTAL 0.6 0.2-1.2 ALKALINE PHOSPHATASE 134 40-150 ALT(SGPT) 13 7-52 AST(SGOT) 18 5-34 FIB-4 SCORE 1.94 <2.67 Dec 06, 2021 12:00 PM [facility] TROPONIN II Sp ecimen Type: PLASMA Comment: Tests performed on Pham Professor Of Physical Education (405) SN:[id number] Ordering Provid er: JELANI SÁNCHEZ Report Released Date/Time: Dec 06, 2021 11:57 AM Reporting Lab: [facility] [address] [facility] [address] Performing Lab: [facility] [address] [facility] [address] TROPONIN II 0.03 0.00-0.29 Dec 06, 2021 [facility] P4 GLU,BUN,CREAT,LYTES,CA Speci men Type: PLASMA 12:00 PM [facility] Comment: Testin g Performed on Pham Professor [employer] Physical Education (405) SN:[id number] Ordering Provid er: JELANI SÁNCHEZ Report Released Date/Time: Dec 06, 2021 11:57 AM Reporting Lab: [facility] T [facility] [address] [facility] [address] Performing Lab: [facility] [address] [facility] [address] UREA NITROGEN 13 7-25 SODIUM 138 135-145 POTASSIUM 3.8 3.5-5.0 CHLORIDE 103 100-110 CARBON DIOXIDE 23 20-30 ANION GAP 12 4-16 GLUCOSE 105 H 65-100 CREATININE 0.90 0.5-1.5 CALCIUM 8.7 8.5-10.5 eGFR(CKD-EPI 2020) >90.0 >60 Dec 06, 2021 12:00 PM [facility] BNP(P) Sp ecimen Type: PLASMA Comment: Tests performed on Pham Professor [employer] Physical Education (405) SN:[id number] Ordering Provid er: JELANI SÁNCHEZ Report Released Date/Time: Dec 06, 2021 11:57 AM Reporting Lab: [facility] [address] [facility] [address] Performing Lab: [facility] T [facility] [address] [facility] [address] BNP(P) 224.8 H 10-100 Dec 06, 2021 [place] COVID-19+FLU/RSV DIAGNOSTIC Spe cimen Type: NASOPHARYNX 12:00 PM [facility] PANEL(405) Comment: Tests performed on Salesconxxpert (405) Critical results called to and read back by: ALESHIA WILKINSON RN 12/06/21 @ 1312 Ordering Provid er: JELANI SÁNCHEZ Report Released Date/Time: Dec 06, 2021 11:57 AM Reporting Lab: [facility] [facility] T [facility] [address] [facility] [address] Performing Lab: [place] [facility] [address] [facility] [address] FLU A(PCR) NEGATIVE NEGATIVE FLU B(PCR) NEGATIVE NEGATIVE RSV(PCR) NEGATIVE NEGATIVE COVID-19([id number]) DETECTED HH NO T DETECTED Dec 06, 2021 12:00 PM [facility] Sp ecimen Type: BLOOD No comment enter ed. Ordering Provid er: JELANI SÁNCHEZ Report Released Date/Time: Dec 06, 2021 11:57 AM Reporting Lab: [facility] [address] [facility] [address] Performing Lab: [facility] [address] [facility] [address] WBC 7.2 4.5-11.0 RBC 4.86 4.23-5.66 HGB [...] 2021 07:43 /min mm[Hg] [place] PM T [facility] Dec 12, 0 WHITE 2021 07:37 [place] PM [place] [facility] Dec 12, 0 WHITE 2021 02:17 [place] PM T [facility] Dec 12, 98 F 82 127/76 18 /min 97 % WHITE 2021 02:01 /min mm[Hg] [place] PM T [facility] Dec 12, 0 2021 10:59 [place] AM [facility] Social History: [...] place. Date/Time Smoking Status/Tobacco Use Comment [facility] Apr 01, 2020 01:16 PM QUIT TOBACCO USE 1-7 YEARS AGO [facility] Mar 24, 2020 03:00 PM QUIT TOBACCO USE [facility] Feb 21, 2019 04:11 PM QUIT TOBACCO USE 1-7 YEARS AGO [facility] Feb 20, 2019 03:38 PM QUIT TOBACCO USE 1-7 YEARS AGO [facility] Feb 03, 2019 09:50 AM QUIT TOBACCO USE 1-7 YE[facility] AGO [facility] May 25, 2016 11:53 PM QUIT [facility]BAC[facility]ST [facility] May 23, 2016 06:57 PM QUIT [...] AM CURRENT SMOKER [facility] Radiology Reports: +/- [...] W/WO CONTRAST: MARYELLEN LONG LUCAS LARES N [id number] -1950 [facility] Exm Date: DEC 13, 2021@12:57 Req Phys: ISATU TODD Loc: OP Unknown/0 12-15-2021@13:20 Img Loc: MRI IMAGING ([facility]) Service: ZZGENERAL MEDICINE (Case [id number] COMPLETE) MRI ABDOMEN W/WO CONTRAST (M RI Detailed) CPT:54787 Reason for Study: further characterization of a [...] new lyphadenopathy REQUESTING MD: Isatu Todd PAGER: [phone] PHONE: [phone] Weight: 232.2 lb [105.32 kg] (12/12/2021 05:00) [...] patient will need to arrange for a tank 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 to take him/her home after [...] 15, 2021 Date Verified: DEC 15, 2021 Customer Assistance Representative E-Sig:/ES/MARYELLEN LONG Report: MRI ABDOMEN W/WO CONTRAST [...] MALIGNANCY Primary Interpreting Staff: MARYELLEN LONG Staff (Customer Assistance Representative) / Dec 10, 2021 09:[address] ABDOMEN & PELVIS: [facility] BENITA MEEKLAS N [id number] -1950 SERVICE [facility] Ex Date: DEC 10, 2021@09:30 Req Phys: ISATU TODD Loc: 1S MED/12-10@10:57 Img Loc: CT SCAN (OOS) Service: [facility] MEDICINE (Case [id number] COMPLETE) CT ABD & PELVIS WITHOUT CONT RAST (CT Detailed) CPT:44486 Reason for Study: 71 yo male with [...] INDEX - NO HEIGHTS FOUND Pager number: [phone] STAT orders MUST be call ed to RADIOLOGY [phone] to speak to the appropriate application support technician. Report Status: Verified Date Reported: DEC 10, 2021 Date Verified: DEC 10, 2021 Customer Assistance Representative E-Sig: Report: EXAM: CT abdomen and pelvis [...] ph nodes. READING PHYSICIAN: Ramone Munoz D.O. [phone] 12/10/2021 10:55 EDT [facility] National Teleradiology Program [phone] (For Medical Practitioner Use Only ) [address] [facility], [facility] [address], [address] [place] [address] Attention Patients / Veterans: If you have ques tions or concerns about these test results, please contact your o rdering provider or primary care team. Primary Diagnostic Code: SIGNIFICANT ABNORMALIT Y, ATTN NEEDED Primary Interpreting Staff: RADIOLOGY,OUTSIDE SERVICE, Staff Physician / Dec 09, 2021 07:34 AM BASW (MODIFIED): JESSIE CHENEY TARA ER JCLUCAS LARES N [id number] -1950 [facility] Exm Date: DEC 09, 2021@07:34 Req Phys: PEYTONISATU Manjarrez Loc: 1S MED/12-09@11:26 Img Loc: XRAY (OOS) Service: [facility] MEDICINE (Case [id number] COMPLETE) BASW (MODIFIED) (RAD Detaile d) CPT:42281 Contrast Media : Barium Reason for Study: dysphagia ?esophageal spasm Clinical History: Report Status: Verified Date Reported: DEC 09, 2021 Date Verified: DEC 09, 2021 Customer Assistance Representative E-Sig:/ES/JESSIE CHENEY Report: BASW (MODIFIED) , 12/09/2021 [...] REQUIRED Primary Interpreting Staff: JESSIE CHENEY, RADIOLOGIST (Customer Assistance Representative) /TLC Dec 06, 2021 12:[address] CHEST (INCLUDES ADRENALS): JESSIE CHENEY LUCAS LARES N [id number] -1950 [facility] Exm Date: DEC 06, 2021@12:59 Req Phys: JELANI SÁNCHEZ Pat Loc: [facility] ED DAYS M 1RD (Req'g Loc) Img Loc: CT SCAN (OOS) Service: Unknown (Case [id number] COMPLETE) CT THORAX W/O CONT (CT Detai led) CPT:70550 Reason for Study: Opacification right chest Clinical History: No contrast allergy BUN: 13 (12/06/21 12:00) CREATI: 0.90 (12/06/21 12:00) eGFR 05/16/21 09:43 52 L Weight: 232.6 lb [105.51 kg] (12/06/2021 11:40) BODY MASS INDEX - NO HEIGHTS FOUND Pager number: [phone] STAT orders MUST be called t o RADIOLOGY [phone] to speak to the appropriate application support technician. Indications - Other: Opacification right chest, covid positive, lung cancer histo Report Status: Verified Date Reported: DEC 06, 2021 Date Verified: DEC 06, 2021 Customer Assistance Representative E-Sig:/ES/JESSIE CHENEY Report: CT THORAX W/O CONT [...] REQUIRED Primary Interpreting Staff: JESSIE CHENEY, RADIOLOGIST (Customer Assistance Representative) Primary Interpreting Resident: PRINCE CHAMPION, Resident /BR Dec 06, 2021 11:58 AM CHEST SINGLE VIEW: JESSIE CHENEY DOUGLAS N [id number] -1950 M [facility] Exm Date: DEC 06, 2021@11:58 Req Phys: GONZALO,JELANI Link Pat Loc: [facility] ED DAYS M 1RD (Req'g Loc) Img Loc: XRAY (OOS) Service: Unknown (Case [id number] COMPLETE) CHEST SINGLE VIEW (RAD Detai led) CPT:18055 Proc Modifiers : PORTABLE EXAM Reason for Study: SOB, home covid test positive Clinical History: Report Status: Verified Date Reported: DEC 06, 2021 Date Verified: DEC 06, 2021 Customer Assistance Representative E-Sig:/ES/JESSIE CHENEY Report: Exam type: Chest x-ray [...] REQUIRED Primary Interpreting Staff: JESSIE CHENEY, RADIOLOGIST (Customer Assistance Representative) /TLC Pathology Reports: +/- 30 days of [...] MILLER LOCAL TITLE: LR SURGICAL PATHOLOGY REPORT [facility] STANDARD TITLE: PATHOLOGY REPORT DATE OF NOTE: JAN 03, 2022@10:28:01 ENTRY DATE: JAN 03, 2022@10:28:01 AUTHOR: NIURKA MILLER EXP COSIGNER: URGENCY: STATUS: COMPLETED $APHDR Reporting Lab: C[facility]Y MONTOYA [facility] [CLIA# [id number]] [address] [place] [address] - - - - - - [...] automatically d ocumented from SURGERY package case #[id number] Field (#32) PRINCIPAL PRE-OP DIAGNOSIS, (#.72) OTHER [...] automatically d ocumented from SURGERY package case #[id number] Field (#34) PRINCIPAL POST-OP DIAG, (#.74) OTHER [...] Label: Lucas Meek Paperwork: Lucas Meek Cassette: [id number];..;KALYANI;.;405;[id number] Specimen is labeled: ES bx Received in formalin are several pieces of pale boyd and brown tissue, 1.2 x 0.7 cm in aggregate. Submitted entirely in 1 cassette [id number];..;KALYANI;.;405;[id number] SAW 12/15/2021 Microscopic exam: *+* MODIFIED REPORT *+* (Last modified: JAN 03, 2022@09:30:20 typed by NIURKA WADDELL) DIAGNOSIS: A. 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 Kendell long. TIARA Coombs was notified on 12/21/21. Modified on 01/03/22 to include report from [facility] stating that tumor is NEGATIVE for her2/ matheus amplification. The attending pathologist who signature mansoor ears on this report has reviewed all diagnostic slides and has edited t he gross and/or microscopic portion of this report in rendering the final pathologic diagnosis. [address] [address] CPT: 46120 /emely/ NIURKA Yeung MD Signed Jan 03, 2022@10:28 Performing Laboratory: Surgical Pathology Report Performed By: CAREY DOYLE [place] [facility] [CLIA# [id number]] [address] [place] [address] $FTR - - - - - [...] - - LUCAS MEEK STANDARD FORM 515 ID:[id number] SEX:M :1950 AGE: 71 LOC: SDM END PCP: Isatu Todd /emely/ NIURKA MILLER Staff Signed: 01/03/2022 10:28 Dec 21, 2021 11:46 AM LR SURGICAL PATHOLOGY REPORT: STEFANY MILLER [facility] LOCAL TITLE: LR SURGICAL PATHOLOGY REPORT [facility] STANDARD TITLE: PATHOLOGY REPORT DATE OF NOTE: DEC 21, 2021@11:46:59 ENTRY DATE: DEC 21, 2021@11:46:59 AUTHOR: NIURKA MILLER EXP COSIGNER: URGENCY: STATUS: COMPLETED $APHDR Reporting Lab: [facility] [CLIA# [id number]] [address] [place] [address] - - - - - - [...] automatically d ocumented from SURGERY package case #[id number] Field (#32) PRINCIPAL PRE-OP DIAGNOSIS, (#.72) OTHER [...] automatically d ocumented from SURGERY package case #[id number] Field (#34) PRINCIPAL POST-OP DIAG, (#.74) OTHER [...] Label: Lucas Meek Paperwork: Lucas Meek Cassette: [id number];..;KALYANI;.;405;[id number] Specimen is labeled: ES bx Received in formalin are several pieces of pale boyd and brown tissue, 1.2 x 0.7 cm in aggregate. Submitted entirely in 1 cassette [id number];..;KALYANI;.;405;[id number] SAW 12/15/2021 Microscopic exam: DIAGNOSIS: A. 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 Kendell long. TIARA Coombs was notified on 12/21/21. The attending pathologist who signature mansoor ears on this report has reviewed all diagnostic slides and has edited t he gross and/or microscopic portion of this report in rendering the final pathologic diagnosis. [address] [address] CPT: 86090 /emely/ NIURKA Yeung MD Signed Dec 21, 2021@11:46 Performing Laboratory: Surgical Pathology Report Performed By: [facility] [CLIA# [id number]] [address] [place] [address] $FTR - - - - - [...] - - LUCAS MEEK STANDARD FORM 515 ID:[id number] SEX:M :1950 AGE: 71 LOC: SDM END PCP: Isatu Todd /charmaine Yeung MD Signed: 12/21/2021 11:46 Dec 06, 2021 03:30 PM LR MICROBIOLOGY REPORT: [facility] Reporting Lab: [facility] [CLIA# [id number]] [address] [place] [address] Accession [UID]: [id number] [[id number]] Receiv ed: Dec 06, 2021@16:14 Collection sample: BLOOD CUL T BOTTLE(NIRMAL/AERO)Collection date: Dec 06, 2021 15:30 Site/Specimen: BLOOD Provider: JELANI SÁNCHEZ Comment on specimen: LAC Test(s) ordered: BLOOD CULTURE ANAEROBI C....... completed: Dec 12, 2021 06:18 * BACTERIOLOGY FINAL REPORT => Dec 12, 2021 06:1 8 TECH CODE: 82070 Bacteriology Remark(s): NO GROWTH IN 5 DAYS =--=--=--=--=--=--=--=--=--=--=--=--=--= --=--=--=--=--=--=--=--=--=--=--=--=-- Performing Laboratory: Bacteriology Report Performed By: [facility] [CLIA# [id number]] [address] [place] [address] Dec 06, 2021 03:30 PM LR MICROBIOLOGY REPORT: [facility] Reporting Lab: [facility] [CLIA# [id number]] [address] [place] [address] Accession [UID]: [id number] [[id number]] Receiv ed: Dec 06, 2021@16:14 Collection sample: BLOOD CUL T BOTTLE(NIRMAL/AERO)Collection date: Dec 06, 2021 15:30 Site/Specimen: BLOOD Provider: JELANI SÁNCHEZ Comment on specimen: LAC Test(s) ordered: BLOOD CULTURE AEROBIC. ........ completed: Dec 12, 2021 06:17 * BACTERIOLOGY FINAL REPORT => Dec 12, 2021 06:1 7 TECH CODE: [id number] Bacteriology Remark(s): NO GROWTH IN 5 DAYS =--=--=--=--=--=--=--=--=--=--=--=--=--= --=--=--=--=--=--=--=--=--=--=--=--=-- Performing Laboratory: Bacteriology Report Performed By: [facility] [CLIA# [id number]] [address] [place] [address]
--- OUTSIDE RECORDS SUMMARY | 2022-01-19 08:42 | XMS_ITS ---
DAILY HOSPITALIZATION DATA [facility] Encounter Summary Created on:December 13, 2021 Patient:LUCAS MEEK Sex:Male :1950 Author Organization [facility] Address [address] [place] [id number] Support Name Relationship Address Phone YUSRA MEEK Unavailable [address] [place] [address] YUSRA MEEK Unavailable [address] [place] [facility] [place] [address] CLAY MOSLEY Unavailable Unavailable SJ SANTACRUZ Unavailable [...] MEDICARE MEDICARE PART Jun 18, PART A [id number] DO KALYANI PATIENT (WNR) (M) A 2016 13A 1 U[place]AS MEDICARE MEDICARE PART Jun 18, PART B [id number] DO KALYANI PATIENT (WNR) (M) B 2016 13A 1 [place]AS MEDICARE MEDICARE PART Jun 18, PART A [id number] KALYANIDO PATIENT (WNR) (M) A 2017 VH81 2 U[place]AS MEDICARE MEDICARE PART Jun 18, PART B [id number] DO KALYANI PATIENT (WNR) (M) B 2017 VH81 2 U[place]AS UNITED MEDICARE MCR(Jun 18 [id number] Luz MEEK PATIENT HEALTHCARE ADVANTAGE NR) 2021 37 0 [facility] (WNR) Selected Encounter This section includes the information on record at [place] for the Encounter. Date/Time Encounter Type Encounter Description Reason Provider Source Dec 13, 2021 12:41 Inpatient Visit DAILY HOSPITALIZATION DATA AM [facility] Encounter Template Text not used by [place] Plan of Treatment: Future Appointments (+ 6 [...] AM AMB[place]ORY - N[place] [facility] Jan 06, 2022 02:00 PM [place] [facility] Jan 10, 2022 11:30 AM [facility] - [facility]IC[facility] Jan 24, 2022 08:00 AM [place] [facility] Feb 21, 2022 10:00 AM [place]BUL[place]ORY [place] SURG[place] [facility] Mar 21, 2022 10:30 AM [...] the Encounter. The data comes from all [place] treatment [facility]. Test Date/Time Test Type Test Details Facility Name October 31, 2021 07:37 AM Consult Order [facility]ARE-EGD [facility] Cons Absorption And Adsorption Engineer's Choice November 15, 2021 10:37 AM Consult Order [facility] CARE-PODIATRY Cons Absorption And Adsorption Engineer's Choice Dec 06, 2021 12:52 PM Pharmacy [place] Infusion Order [facility] Dec 06, 2021 03:24 PM Pharmacy - [place] [facility] Dec 06, 2021 03:40 PM [place]acy [place] [facility] Dec 15, 2021 08:41 AM Consult Order SPEECH PATHOLOGY [place] OUT[place] Cons [facility] Absorption And Adsorption Engineer's Choice Jan 15, 2022 10:08 PM Consult Order [facility] CARE-PALLIATIVE CARE Cons Absorption And Adsorption Engineer's Choice Lab Results: +/- 30 days of [...] Reference Range Comment Dec 15, 2021 [place] P4 GLU,BUN,CREAT,LYTES,CA Speci men Type: PLASMA 06:43 AM [facility] Comment: Tests performed on Tianji (405) SN:[id number] Ordering Provid er: ISATU TODD Report Released Date/Time: Dec 11, 2021 07:42 AM Reporting Lab: [facility] [address] [facility] [address] Performing Lab: [facility] [address] [facility] [address] UREA NITROGEN 9 7-25 SODIUM 137 135-145 POTASSIUM 3.8 3.5-5.0 CHLORIDE 105 100-110 CARBON DIOXIDE 26 20-30 ANION GAP 6 4-16 GLUCOSE 102 H 65-100 CREATININE 0.64 0.5-1.5 CALCIUM 8.1 L 8.5-10.5 eGFR(CKD-EPI 2020) >90.0 >60 Dec 15, 2021 06:43 AM [facility] CBC PROFILE Sp ecimen Type: BLOOD No comment enter ed. Ordering Provid er: ISATU TODD Report Released Date/Time: Dec 10, 2021 07:22 AM Reporting Lab: [facility] [address] [facility] [address] Performing Lab: [facility] [address] [facility] [address] WBC 5.7 4.5-11.0 RBC 4.22 L 4.23-5.66 [...] ABSOLUTE NRBC 0.00 0-0 Dec 14, 2021 [facility] CYTOGENETIC Specimen Type: ESOPHAGUS 02:59 PM [facility] Comment: ~For T est: CYTOGENETIC FISH[place] ~FISH HER 2 NUE, FFPE See full report in [employer] Image display viewer/tab#LAB-Reference Ordering Provid er: NIURKA MILLER Report Released Date/Time: Dec 21, 2021 12:11 PM Reporting Lab: [facility] [address] [facility] [address] Performing Lab: [facility] CYTOGENETIC FISH[place] comment Dec 14, 2021 [facility] P4 GLU,BUN,CREAT,LYTES,CA Speci men Type: PLASMA 06:27 AM [facility] Comment: Tests performed on Tianji (405) SN:[id number] Ordering Provid er: ISATU TODD Report Released Date/Time: Dec 11, 2021 07:42 AM Reporting Lab: [facility] [address] [facility] [address] Performing Lab: [facility] [address] [facility] [address] UREA NITROGEN 10 7-25 SODIUM 137 135-145 [...] Reporting Lab: [facility] [address] [facility] [address] Performing Lab: [facility] [address] [facility] [address] WBC 6.0 4.5-11.0 RBC 4.29 4.23-5.66 HGB [...] ABSOLUTE NRBC 0.00 0-0 Dec 13, 2021 [facility] P4 GLU,BUN,CREAT,LYTES,CA Speci men Type: PLASMA 06:34 AM [facility] Comment: Tests performed on Tianji (405) SN:[id number] Ordering Provid er: ISATU TODD Report Released Date/Time: Dec 11, 2021 07:42 AM Reporting Lab: [facility] [address] [facility] [address] [facility] [address] [facility] [address] UREA NITROGEN 12 7-25 SODIUM 136 135-145 [...] Reporting Lab: [facility] [address] [facility] [address] Performing Lab: [facility] [address] [facility] [address] WBC 5.6 4.5-11.0 RBC 4.28 4.23-5.66 HGB [...] ABSOLUTE NRBC 0.00 0-0 Dec 12, 2021 [facility] P4 GLU,BUN,CREAT,LYTES,CA Speci men Type: PLASMA 06:21 AM [facility] Comment: Tests performed on Tianji (405) SN:[id number] Ordering Provid er: ISATU TODD Report Released Date/Time: Dec 11, 2021 07:42 AM Reporting Lab: [facility] [address] [facility] [address] Performing Lab: [facility] [address] [facility] [address] UREA NITROGEN 11 7-25 SODIUM 139 135-145 [...] AM Reporting Lab: [facility] [address] [facility] [address] [facility]: [facility] [address] [facility] [address] WBC 5.5 4.5-11.0 RBC 4.37 4.23-5.66 HGB [...] 0.00 0-0 Dec 12, 2021 06:00 AM [facility] MAGNESIUM Sp ecimen Type: PLASMA Comment: Testin g Performed on Tianji (405) SN:[id number] Ordering Provid er: ISATU TODD Report Released Date/Time: Dec 12, 2021 08:24 AM Reporting Lab: [facility] [employer] [facility] [address] [facility] [address] Performing Lab: [employer] [place] [facility] [address] [facility] [address] MAGNESIUM 1.8 1.6-2.6 Dec 12, 2021 06:00 AM [facility]spaceT [facility] PHOSPHORUS Sp ecimen Type: PLASMA Comment: Testin g Performed on Tianji (405) SN:[id number] Ordering Provid er: ISATU TODD Report Released Date/Time: Dec 12, 2021 08:24 AM Reporting Lab: [place] Sar[employer] TechT [facility] [address] [facility] [address] Performing Lab: [place] [employer] [address] [facility] [address] PHOSPHORUS 3.1 2.5-5.0 Dec 11, 2021 06:15 AM [employer] [place] [employer] ELECTROLYTES Sp ecimen Type: PLASMA Comment: Tests performed on Tianji (405) SN:[id number] Ordering Provid er: ISATU TODD Report Released Date/Time: Dec 10, 2021 07:22 AM Reporting Lab: [place] [employer]T [facility] [address] [facility] [address] Performing Lab: [facility] [employer] [facility] [address] [facility] [address] SODIUM 137 135-145 POTASSIUM 4.3 3.5-5.0 CHLORIDE 108 100-110 CARBON DIOXIDE 20 20-30 ANION GAP 9 4-16 Dec 11, 2021 06:15 AM [place] [employer] CBC PROFILE Sp ecimen Type: BLOOD Comment: Result s checked Ordering Provid er: ISATU TODD Report Released Date/Time: Dec 10, 2021 07:22 AM Reporting Lab: [place] O[employer]GAT [facility] [address] [facility] [address] Performing Lab: [facility] [place] OMEGAT [facility] [address] [facility] [address] WBC 5.8 4.5-11.0 RBC 4.37 4.23-5.66 HGB [...] ecimen Type: PLASMA Comment: Tests performed on Tianji (808) SN:[id number] Results checked Ordering Provid er: ISATU TODD Report Released Date/Time: Dec 11, 2021 07:44 AM Reporting Lab: [facility] [address] [facility] [address] Performing Lab: [facility] OMEGAT [facility] [address] [facility] [address] PHOSPHORUS 3.0 2.5-5.0 Dec 10, 2021 08:05 AM [place] [facility] MAGNESIUM Sp ecimen Type: PLASMA Comment: [place] [id number] on Dec 10, 2021@08:31 Tests performed on Tianji (405) SN:[id number] Ordering Provid er: ISATU TODD Report Released Date/Time: Dec 10, 2021 07:22 AM Reporting Lab: [place] [facility] [address] [place] [facility] [place] [address] Performing Lab: [place] [facility] [address] [place] [facility] [place] [address] MAGNESIUM 1.7 1.6-2.6 Dec 10, 2021 08:05 AM [place] [facility] PHOSPHORUS Sp ecimen Type: PLASMA Comment: [place] [id number] on Dec 10, 2021@08:31 Tests performed on Tianji (405) SN:[id number] Ordering Provid er: ISATU TODD Report Released Date/Time: Dec 10, 2021 07:22 AM Reporting Lab: [place] [facility] [address] [place] [facility] [place] [address] Performing Lab: [place] [facility] [address] [place] [facility] [place] [address] PHOSPHORUS 1.8 L 2.5-5.0 Dec 10, 2021 08:05 AM [place] UREA NITROGEN Specimen Type: PLASMA [facility] Comment: [place] [id number] on Dec 10, 2021@08:31 Tests performed on Tianji (405) SN:[id number] Ordering Provid er: ISATU TODD Report Released Date/Time: Dec 10, 2021 07:22 AM Reporting Lab: [place] [facility] [address] [place] [facility] [place] [address] Performing Lab: [place] [facility] [address] [place] [facility] [place] [address] UREA NITROGEN 8 7-25 Dec 10, 2021 08:05 AM [place] [facility] GLUCOSE Sp ecimen Type: PLASMA Comment: [place] [id number] on Dec 10, 2021@08:31 Tests performed on Tianji (405) SN:[id number] Ordering Provid er: ISATU TODD Report Released Date/Time: Dec 10, 2021 07:22 AM Reporting Lab: [place] [facility] [address] [facility] [address] Performing Lab: [place] [facility] [address] [facility] [address] GLUCOSE 144 H 65-100 Dec 10, 2021 08:05 AM [place] [facility] ELECTROLYTES Sp ecimen Type: PLASMA Comment: [place] [id number] on Dec 10, 2021@08:31 Tests performed on Tianji (405) SN:[id number] Ordering Provid er: ISATU TODD Report Released Date/Time: Dec 10, 2021 07:22 AM Reporting Lab: [place] [facility] [address] [facility] [address] Performing Lab: [place] [facility] [address] [facility] [address] SODIUM 139 135-145 POTASSIUM 3.7 3.5-5.0 CHLORIDE 107 100-110 CARBON DIOXIDE 24 20-30 ANION GAP 8 4-16 Dec 10, 2021 08:05 [place] CREATININE WITH eGFR Specime n Type: PLASMA AM [facility] PANEL [place]: [place] [id number] on Dec 10, 2021@08:31 Tests performed on Pham Sweetgreen (405) SN:[id number] Ordering Provid er: ISATU TODD Report Released Date/Time: Dec 10, 2021 07:22 AM Reporting Lab: [place] [facility] [address] [facility] [address] Performing Lab: [place] [facility] [address] [facility] [address] CREATININE 0.78 0.5-1.5 eGFR(CKD-EPI 2020) >90.0 >60 Dec 10, 2021 08:05 AM [place] [facility] CALCIUM Sp ecimen Type: PLASMA Comment: [place] [id number] on Dec 10, 2021@08:31 Tests performed on Pham Sweetgreen (405) SN:[id number] Ordering Provid er: ISATU TODD Report Released Date/Time: Dec 10, 2021 07:22 AM Reporting Lab: [place] [facility] [address] [facility] [address] Performing Lab: [place] [facility] [address] [facility] [address] CALCIUM 8.3 L 8.5-10.5 Dec 10, 2021 08:05 AM [place] OMEGAT [facility] CBC PROFILE Sp ecimen Type: BLOOD No comment enter ed. Ordering Provid er: ISATU TODD Report Released Date/Time: Dec 10, 2021 07:22 AM Reporting Lab: [place] OMEGAT [facility] [address] [facility] [address] Performing Lab: [place] O[facility] [address] [facility] [address] WBC 7.0 4.5-11.0 RBC 4.54 4.23-5.66 HGB [...] ecimen Type: PLASMA Comment: Tests performed on Tianji (911) SN:[id number] Ordering Provid er: ISATU TODD Report Released Date/Time: Dec 08, 2021 10:23 AM Reporting Lab: [place] OMEGAT [facility] [address] [facility] [address] Performing Lab: [facility] [address] [facility] [address] MAGNESIUM 1.6 1.6-2.6 Dec 09, 2021 [facility] P4 GLU,BUN,CREAT,LYTES,CA Speci men Type: PLASMA 06:46 AM [facility] Comment: Tests performed on Tianji (405) SN:[id number] Ordering Provid er: ISATU TODD Report Released Date/Time: Dec 08, 2021 05:00 PM Reporting Lab: [facility] [address] [facility] [address] Performing Lab: [facility] [address] [facility] [address] UREA NITROGEN 6 L 7-25 SODIUM 134 [...] Reporting Lab: [facility] [address] [facility] [address] Performing Lab: [facility] [address] [facility] [address] WBC 7.1 4.5-11.0 RBC 4.40 4.23-5.66 HGB [...] 0.00 0-0 Dec 08, 2021 06:39 AM [place] [employer] T [facility] MAGNESIUM Sp ecimen Type: PLASMA Comment: Testin g Performed on Tianji (405) SN:[id number] Ordering Provid er: ISATU TODD Report Released Date/Time: Dec 07, 2021 10:32 AM Reporting Lab: [facility] [address] [facility] [address] Performing Lab: [facility] [address] [facility] [address] MAGNESIUM 1.5 L 1.6-2.6 Dec 08, 2021 [place] [employer] T P4 GLU,BUN,CREAT,LYTES,CA Speci men Type: PLASMA 06:39 AM [facility] Comment: Testin g Performed on Tianji (405) SN:[id number] Ordering Provid er: ISATU TODD Report Released Date/Time: Dec 07, 2021 10:32 AM Reporting Lab: [employer] T [facility] [address] [facility] [address] Performing Lab: [facility] [address] [facility] [address] UREA NITROGEN 6 L 7-25 SODIUM 136 135-145 POTASSIUM 3.3 L 3.5-5.0 CHLORIDE 104 100-110 CARBON DIOXIDE 22 20-30 ANION GAP 10 4-16 GLUCOSE 133 H 65-100 CREATININE 0.76 0.5-1.5 CALCIUM 8.4 L 8.5-10.5 eGFR(CKD-EPI 2020) >90.0 >60 Dec 08, 2021 06:39 AM [place] [employer] T [facility] CBC PROFILE Sp ecimen Type: BLOOD No comment enter ed. Ordering Provid er: ISATU TODD Report Released Date/Time: Dec 07, 2021 10:32 AM Reporting Lab: [facility] [address] [facility] [address] Performing Lab: [facility] [address] [facility] [address] WBC 8.4 4.5-11.0 RBC 4.75 4.23-5.66 HGB [...] ABSOLUTE NRBC 0.00 0-0 Dec 07, 2021 [facility] P4 GLU,BUN,CREAT,LYTES,CA Speci men Type: PLASMA 06:42 AM [facility] Comment: Tests performed on Tianji (405 SN:[id number] Ordering Provid er: PORFIRIO WALTERS Report Released Date/Time: Dec 06, 2021 06:57 PM Reporting Lab: [facility] [address] [facility] [address] Performing Lab: [facility] [address] [facility] [address] UREA NITROGEN 9 7-25 SODIUM 135 135-145 POTASSIUM 3.5 3.5-5.0 CHLORIDE 103 100-110 CARBON DIOXIDE 22 20-30 ANION GAP 10 4-16 GLUCOSE 92 65-100 CREATININE 0.73 0.5-1.5 CALCIUM 8.0 L 8.5-10.5 eGFR(CKD-EPI 2020) >90.0 >60 Dec 07, 2021 06:42 [place] LIVER PROFILE Specimen Typ e: PLASMA AM [facility] Comment: Tests performed on Blue [employer]ypso Marshmallow Machine Worker (405) SN:[id number] Ordering Provid er: PORFIRIO WALTERS Report Released Date/Time: Dec 06, 2021 06:57 PM Reporting Lab: [facility] [address] [facility] [address] Performing Lab: [facility] [address] [facility] [address] PROTEIN, TOTAL 5.7 L 6.0-8.5 ALBUMIN 2.4 L 3.2-5.0 BILIRUBIN, TOTAL 0.4 0.2-1.2 ALKALINE PHOSPHATASE 109 40-150 ALT(SGPT) 10 7-52 AST(SGOT) 15 5-34 FIB-4 SCORE 1.92 <2.67 Dec 07, 2021 06:42 AM [place] [facility] CBC PROFILE Specimen Type: BLOOD [facility] No comment enter ed. Ordering Provid er: PORFIRIO WALTERS Report Released Date/Time: Dec 06, 2021 06:57 PM Reporting Lab: [facility] [address] [facility] [address] Performing Lab: [facility] [address] [facility] [address] WBC 5.7 4.5-11.0 RBC 4.15 L 4.23-5.66 [...] [facility]AM[facility]OC %) AUTOMATED Comment: Tests performed on Tianji (405) SN:[id number] Ordering Provid er: ISATU TODD Report Released Date/Time: Dec 07, 2021 10:28 AM Reporting Lab: [place] [facility] [address] [facility] [address] Performing Lab: [place] [facility] [address] [facility] [address] RETICULOCYTES (%) AUTOMATED 1.23 0. 6-2.0 RETICULOCYTES (ABS) AUTOMATED 0.052 0.030-0.090 Dec 06, 2021 09:45 [place] MRSA SURVL NARES Specimen Ty pe: NARES PM [facility] DNA No comment enter ed. Ordering Provid er: ALVARO VARGHESE Report Released Date/Time: Dec 07, 2021 02:20 AM Reporting Lab: [place] [facility] [address] [facility] [address] Performing Lab: [place] [facility] [address] [facility] [address] MRSA SURVL NARES DNA NEGATIVE NEGATIVE Dec 06, 2021 06:00 [place] URINALYSIS W/REFLEX TO Speci men Type: URINE PM [facility] CULTURE No comment enter ed. Ordering Provid er: JELANI SÁNCHEZ Report Released Date/Time: Dec 06, 2021 11:57 AM Reporting Lab: [place] [facility] [address] [facility] [address] Performing Lab: [place] [facility] [address] [facility] [address] URINE COLOR Arlin YELLOW SPECIFIC GRAVITY 1.029 [...] 21, R[place] VARIANT Comment: https://www.cdc.gov/coronavirus/2019-ncov/cases-updates/variant- surveillance/variant-info.html The [employer] SARS CoV 2 [employer] Assay-GX is a next-generation sequencing (NGS) assa 2021 [facility] SEQUENCING y that determine s the complete genome sequence of the SARS-CoV-2 virus. The assay contains variant-tolerant primers to broaden and improve the coverage for variant detection and increase the sensitivity 12:00 [facility] PNL(WH) of the panel to enable detection from lower viral titer samples. The assay is run on the [employer] Sequencer, which performs automated library preparation, sequencing, analysis, and reporting. PM The sequence an alysis includes determination of viral phylogenetic lineage by comparison to the reference strain Wuhan-Hu-1, GenBank: [id number]. Sequence determination may not be possible owing [...] its performance characteristics determined by the [facility] Molecular Diagnostics Laboratory, which is certified under the Clinical Laboratory Improveme nt Amendments (C MARCO) as qualified to perform high complexity clinical laboratory testing. This test is validated for clinical use at [facility] and should not be regarded as [...] [facility] [address] [facility] [address] Performing Lab: [facility] [address] [facility] [address] SARS-CoV-2 CLADE() 22C (OMICRON) SARS-CoV-2 LINEAGE() BA.2.12.1 Dec 06, 2021 12:00 [facility] COVID-19 AG SCREEN Specimen Type: NASAL CAVITY PM [facility] PANEL BINAX(405) Comment: Testi ng Performed By: Mike Briscoe Ordering Provid er: JELANI SÁNCHEZ Report Released Date/Time: Dec 08, 2021 08:23 AM Reporting Lab: [facility] [address] [facility] [address] Performing Lab: [facility] [address] [facility] [address] COVID-19 AG SCRN(wrj BINAX) POSITIVE HH NE G Dec 06, 2021 12:00 PM [facility] LIVER PROFILE Sp ecimen Type: PLASMA Comment: Testin g Performed on Pham Marshmallow Machine Worker (405) SN:[id number] Ordering Provid er: JELANI SÁNCHEZ Report Released Date/Time: Dec 06, 2021 11:57 AM Reporting Lab: [facility] [address] [facility] [address] Performing Lab: [facility] [address] [facility] [address] PROTEIN, TOTAL 6.6 6.0-8.5 ALBUMIN 2.8 L 3.2-5.0 BILIRUBIN, TOTAL 0.6 0.2-1.2 ALKALINE PHOSPHATASE 134 40-150 ALT(SGPT) 13 7-52 AST(SGOT) 18 5-34 FIB-4 SCORE 1.94 <2.67 Dec 06, 2021 12:[address] [facility] Sp ecimen Type: PLASMA Comment: Tests performed on Pham Marshmallow Machine Worker (405) SN:[id number] Ordering Provid er: JELANI SÁNCHEZ Report Released Date/Time: Dec 06, 2021 11:57 AM Reporting Lab: [facility] [address] [facility] [address] Per[facility]: [facility] [address] [facility] [address] TROPONIN II 0.03 0.00-0.29 Dec 06, 2021 [facility] P4 GLU,BUN,CREAT,LYTES,CA Speci men Type: PLASMA 12:00 PM [facility] Comment: Testin g Performed on Pham Marshmallow Machine Worker (405) SN:[id number] Ordering Provid er: JELANI SÁNCHEZ Report Released Date/Time: Dec 06, 2021 11:57 AM Reporting Lab: [facility] T [facility] [address] [facility] [address] Performing Lab: [facility] [address] [facility] [address] UREA NITROGEN 13 7-25 SODIUM 138 135-145 POTASSIUM 3.8 3.5-5.0 CHLORIDE 103 100-110 CARBON DIOXIDE 23 20-30 ANION GAP 12 4-16 GLUCOSE 105 H 65-100 CREATININE 0.90 0.5-1.5 CALCIUM 8.7 8.5-10.5 eGFR(CKD-EPI 2020) >90.0 >60 Dec 06, 2021 12:00 PM [facility] BNP(P) Sp ecimen Type: PLASMA Comment: Tests performed on Pham Marshmallow Machine Worker (405) SN:[id number] Ordering Provid er: JELANI SÁNCHEZ Report Released Date/Time: Dec 06, 2021 11:57 AM Reporting Lab: [facility] [address] [facility] [address] Performing Lab: [facility] [address] [facility] [address] BNP(P) 224.8 H 10-100 Dec 06, 2021 [facility] [place] COVID-19+FLU/RSV DIAGNOSTIC Spe cimen Type: NASOPHARYNX 12:00 PM [facility] PANEL(405) Comment: Tests performed on Jobalinexpert (405) Critical results called to and read back by: ALESHIA WILKINSON RN 12/06/21 @ 1312 Ordering Provid er: JELANI SÁNCHEZ Report Released Date/Time: Dec 06, 2021 11:57 AM Reporting Lab: [facility] [address] [facility] [address] Performing Lab: [place] [facility] [address] [facility] [address] FLU A(PCR) NEGATIVE NEGATIVE FLU B(PCR) NEGATIVE NEGATIVE RSV(PCR) NEGATIVE NEGATIVE COVID-19([id number]) DETECTED HH NO T DETECTED Dec 06, 2021 12:[address] [facility] Sp ecimen Type: BLOOD No comment enter ed. Ordering Provid er: JELANI SÁNCHEZ Report Released Date/Time: Dec 06, 2021 11:57 AM Reporting Lab: [facility] [address] [facility] [address] Performing Lab: [facility] [address] [facility] [address] WBC 7.2 4.5-11.0 RBC 4.86 4.23-5.66 HGB [...] dy Source Pressure Rate Mass Index Dec 13, 97.5 F 86 135/76 16 /min 98 % 0 WHITE 2021 09:20 /min mm[Hg] RIVER PM [facility] Dec 13, 97.9 F 82 108/62 20 /min 96 % 2021 03:27 /min mm[Hg] RIVER PM T [facility] Dec 13, 0 WHITE 2021 02:44 RIVER PM T [facility] Dec 13, 0 WHITE 2021 08:15 RIVER AM [facility] Dec 13, 0 WHITE 2021 05:18 RIVER AM [facility] Social History: Smoking Status (Most [...] took place. Date/Time Smoking Status/Tobacco Use Comment [facility] Apr 01, 2020 01:16 PM QUIT [...] IN PAST YEAR [facility] May 01, 2016 03:11 PM QUIT TOBACCO USE IN PAST YEAR [facility] May 01, 2016 11:19 AM QUIT TOBACCO USE IN PAST YEAR [facility] Mar 16, 2016 12:50 PM V1-PT DECLINES REF TO TOBACCO [facility] CESS PRGM Mar 16, 2016 12:50 PM V1-PT THINKING ABOUT QUIT [facility] TOBACCO USE Aug 12, 2015 08:48 AM CURRENT SMOKER [facility] Radiology Reports: +/- 30 days [...] the Encounter. The data comes from all [place]. Date/Time Radiology Report Provider Source Dec 13, 2021 12:57 PM MRI ABDOMEN W/WO CONTRAST: MARYELLEN LONG LUCAS LARES N [id number] -1950 [facility] Exm Date: DEC 13, 2021@12:57 Req Phys: ISATU TODD Loc: OP Unknown/0 12-15-2021@13:20 Img Loc: MRI IMAGING (OOS) Service: ZZGENERAL MEDICINE (Case [id number] COMPLETE) MRI ABDOMEN W/WO CONTRAST (M RI Detailed) CPT:51730 Reason for Study: further characterization of a [...] new lyphadenopathy REQUESTING MD: Isatu Todd PAGER: [phone] PHONE: [phone] Weight: 232.2 lb [105.32 kg] (12/12/2021 05:00) [...] the patient in acute renal failure? (Str juidth relative contraindication for Gadolinium) No 12. Is the patient or ? ( Relative contraindication for Gadolinium) No Report Status: Verified Date Reported: DEC 15, 2021 Date Verified: DEC 15, 2021 [employer] E-Sig:/ES/MARYELLEN LONG Report: MRI ABDOMEN W/WO CONTRAST [...] MALIGNANCY Primary Interpreting Staff: Staff AMELIA THOMAS ([employer]forcing [employer]) / Dec 10, 2021 09:[address] ABDOMEN & PELVIS: [facility]IDE [facility] LUCAS MEEK N [id number] -1950 M SERVICE [facility] Ex Date: DEC 10, 2021@09:30 Req Phys: ISATU TODD Loc: 1S MED/12-10@10:57 Img Loc: CT SCAN (OOS) Service: [facility] MEDICINE (Case [id number] COMPLETE) CT ABD & PELVIS WITHOUT CONT RAST (CT Detailed) CPT:22106 Reason for Study: 71 yo male with [...] INDEX - NO HEIGHTS FOUND Pager number: [phone] STAT orders MUST be call ed to RADIOLOGY [phone] to speak to the appropriate metal room dental technician. Report Status: Verified Date Reported: DEC 10, 2021 Date Verified: DEC 10, 2021 [employer] E-Sig: Report: EXAM: CT abdomen and pelvis [...] ph nodes. READING PHYSICIAN: Ramone Munoz D.O. [phone] 12/10/2021 10:55 EDT [facility] National Teleradiology Program [phone] (For Medical Practitioner Use Only ) [address] [facility], [facility] [address] [place] [address] Attention Patients / Veterans: If you have ques tions or concerns about these test results, please contact your o rdering provider or primary care team. Primary Diagnostic Code: SIGNIFICANT ABNORMALIT Y, ATTN NEEDED Primary Interpreting Staff: RADIOLOGY,OUTSIDE SERVICE, Staff Physician / Dec 09, 2021 07:34 AM BASW (MODIFIED): JESSIE CHENEY TARA ER JCT LUCAS MEEK N [id number] -1950 [facility] Exm Date: DEC 09, 2021@07:34 Req Phys: ISATU TODD Josseline Loc: 1S MED/12-09@11:26 Img Loc: XRAY (OOS) Service: [facility] MEDICINE (Case [id number] COMPLETE) BASW (MODIFIED) (RAD Detaile d) CPT:29944 Contrast Media : Barium Reason for Study: dysphagia ?esophageal spasm Clinical History: Report Status: Verified Date Reported: DEC 09, 2021 Date Verified: DEC 09, 2021 [employer] E-Sig:/ES/JESSIE CHENEY Report: BASW (MODIFIED) , 12/09/2021 [...] REQUIRED Primary Interpreting Staff: JESSIE CHENEY, RADIOLOGIST ([employer]forcing [employer]) /TLC Dec 06, 2021 12:[address] CHEST (INCLUDES ADRENALS): [facility] N [id number] -1950 [facility] Exm Date: DEC 06, 2021@12:59 Req Phys: GONZALO,JELANI J Pat Loc: [facility] ED DAYS M 1RD (Req'g Loc) Img Loc: CT SCAN (OOS) Service: Unknown (Case [id number] COMPLETE) CT THORAX W/O CONT (CT Detai led) CPT:05109 Reason for Study: Opacification right chest Clinical History: No contrast allergy BUN: 13 (12/06/21 12:00) CREATI: 0.90 (12/06/21 12:00) eGFR 05/16/21 09:43 52 L Weight: 232.6 lb [105.51 kg] (12/06/2021 11:40) BODY MASS INDEX - NO HEIGHTS FOUND Pager number: [phone] STAT orders MUST be called t o RADIOLOGY [phone] to speak to the appropriate metal room dental technician. Indications - Other: Opacification right chest, covid positive, lung cancer histo Report Status: Verified Date Reported: DEC 06, 2021 Date Verified: DEC 06, 2021 [employer] E-Sig:/ES/JESSIE CHENEY Report: CT THORAX W/O CONT [...] REQUIRED Primary Interpreting Staff: JESSIE CHENEY, RADIOLOGIST ([employer]forcing [employer]er [employer]) Primary Interpreting Resident: PRINCE CHAMPION, Resident /BR Dec 06, 2021 11:58 AM CHEST SINGLE VIEW: JESSIE CHENEY DOUGLAS N [id number] -1950 M [facility] Exm Date: DEC 06, 2021@11:58 Req Phys: JELANI SÁNCHEZ Pat Loc: [facility] ED DAYS M 1RD (Req'g Loc) Img Loc: XRAY (OOS) Service: Unknown (Case [id number] COMPLETE) CHEST SINGLE VIEW (RAD Detai led) CPT:60117 Proc Modifiers : PORTABLE EXAM Reason for Study: SOB, home covid test positive Clinical History: Report Status: Verified Date Reported: DEC 06, 2021 Date Verified: DEC 06, 2021 [employer] E-Sig:/ES/JESSIE CHENEY Report: Exam type: Chest x-ray [...] REQUIRED Primary Interpreting Staff: JESSIE CHENEY, RADIOLOGIST ([employer]forcing [employer] Worker [employer] M[employer]) /TLC Pathology Reports: +/- 30 days of [...] the Encounter. The data comes from all [place] treatment facilities. Date/Time Pathology Report Provider Source Jan 03, 2022 10:28 AM LR SURGICAL PATHOLOGY REPORT: STEFANY MILLER LOCAL TITLE: LR SURGICAL PATHOLOGY REPORT [facility] STANDARD TITLE: PATHOLOGY REPORT DATE OF NOTE: JAN 03, 2022@10:28:01 ENTRY DATE: JAN 03, 2022@10:28:01 AUTHOR: NIURKA MILLER EXP COSIGNER: URGENCY: STATUS: COMPLETED $APHDR Reporting Lab: [facility] [CLIA# [id number]] [address] [place] [address] - - - - - - [...] automatically d ocumented from SURGERY package case #[id number] Field (#32) PRINCIPAL PRE-OP DIAGNOSIS, (#.72) OTHER [...] automatically d ocumented from SURGERY package case #[id number] Field (#34) PRINCIPAL POST-OP DIAG, (#.74) OTHER [...] Label: Lucas Meek Paperwork: Lucas Meek Cassette: [id number];..;KALYANI;.;405;[id number] Specimen is labeled: ES bx Received in formalin are several pieces of pale boyd and brown tissue, 1.2 x 0.7 cm in aggregate. Submitted entirely in 1 cassette [id number];..;KALYANI;.;405;[id number] SAW 12/15/2021 Microscopic exam: *+* MODIFIED REPORT *+* (Last modified: JAN 03, 2022@09:30:20 typed by NIURKA WADDELL) DIAGNOSIS: A. 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 Kendell long. TIARA Coombs was notified on 12/21/21. Modified on 01/03/22 to include report from [facility] stating that tumor is NEGATIVE for her2/ matheus amplification. The attending pathologist who signature mansoor ears on this report has reviewed all diagnostic slides and has edited t he gross and/or microscopic portion of this report in rendering the final pathologic diagnosis. [address] [address] CPT: 84252 /emely/ NIURKA Yeung MD Signed Jan 03, 2022@10:28 Performing Laboratory: Surgical Pathology Report Performed By: [facility] [CLIA# [id number]] [address] [place] [id number] $FTR - - - - - [...] - - LUCAS MEEK STANDARD FORM 515 ID:[id number] SEX:M :1950 AGE: 71 LOC: SDM END PCP: Isatu Todd /emely/ NIURKA MILLER Staff Signed: 01/03/2022 10:28 Dec 21, 2021 11:46 AM LR SURGICAL PATHOLOGY REPORT: STEFANY MILLER [facility] LOCAL TITLE: LR SURGICAL PATHOLOGY REPORT [facility] STANDARD TITLE: PATHOLOGY REPORT DATE OF NOTE: DEC 21, 2021@11:46:59 ENTRY DATE: DEC 21, 2021@11:46:59 AUTHOR: NIURKA MILLER EXP COSIGNER: URGENCY: STATUS: COMPLETED $APHDR Reporting Lab: [facility] [CLIA# [id number]] [address] [place] [address] - - - - - - [...] automatically d ocumented from SURGERY package case #[id number] Field (#32) PRINCIPAL PRE-OP DIAGNOSIS, (#.72) OTHER [...] automatically d ocumented from SURGERY package case #[id number] Field (#34) PRINCIPAL POST-OP DIAG, (#.74) OTHER [...] Label: Lucas Meek Paperwork: Lucas Meek Cassette: [id number];..;KALYANI;.;405;[id number] Specimen is labeled: ES bx Received in formalin are several pieces of pale boyd and brown tissue, 1.2 x 0.7 cm in aggregate. Submitted entirely in 1 cassette [id number];..;KALYANI;.;405;[id number] SAW 12/15/2021 Microscopic exam: DIAGNOSIS: A. 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 Kendell long. TIARA Coombs was notified on 12/21/21. The attending pathologist who signature mansoor ears on this report has reviewed all diagnostic slides and has edited t he gross and/or microscopic portion of this report in rendering the final pathologic diagnosis. [address] [address] CPT: 15165 /emely/ NIURKA Yeung MD Signed Dec 21, 2021@11:46 Performing Laboratory: Surgical Pathology Report Performed By: [facility] [CLIA# [id number]] [address] [place] [address] $FTR - - - - - [...] - - LUCAS MEEK STANDARD FORM 515 ID:[id number] SEX:M :1950 AGE: 71 LOC: [facility] END PCP: Isatu Todd /charmaine Yeung MD Signed: 12/21/2021 11:46 Dec 06, 2021 03:30 PM LR MICROBIOLOGY REPORT: [facility] Reporting Lab: [facility] [CLIA# [id number]] [address] [place] [address] Accession [UID]: [id number] [[id number]] Receiv ed: Dec 06, 2021@16:14 Collection sample: BLOOD CUL T BOTTLE(NIRMAL/AERO)Collection date: Dec 06, 2021 15:30 Site/Specimen: BLOOD Provider: JELANI SÁNCHEZ Comment on specimen: LAC Test(s) ordered: BLOOD CULTURE ANAEROBI C....... completed: Dec 12, 2021 06:18 * BACTERIOLOGY FINAL REPORT => Dec 12, 2021 06:1 8 TECH CODE: [id number] Bacteriology Remark(s): NO GROWTH IN 5 DAYS =--=--=--=--=--=--=--=--=--=--=--=--=--= --=--=--=--=--=--=--=--=--=--=--=--=-- Performing Laboratory: Bacteriology Report Performed By: [facility] [CLIA# [id number]] [address] [place] [address] Dec 06, 2021 03:30 PM LR MICROBIOLOGY REPORT: [facility] Reporting Lab: [facility] [CLIA# [id number]] [address] [place] [address] Accession [UID]: [id number] [[id number]] Receiv ed: Dec 06, 2021@16:14 Collection sample: BLOOD CUL T BOTTLE(NIRMAL/AERO)Collection date: Dec 06, 2021 15:30 Site/Specimen: BLOOD Provider: JELANI SÁNCHEZ Comment on specimen: LAC Test(s) ordered: BLOOD CULTURE AEROBIC. ........ completed: Dec 12, 2021 06:17 * BACTERIOLOGY FINAL REPORT => Dec 12, 2021 06:1 7 TECH CODE: [id number] Bacteriology Remark(s): NO GROWTH IN 5 DAYS =--=--=--=--=--=--=--=--=--=--=--=--=--= --=--=--=--=--=--=--=--=--=--=--=--=-- Performing Laboratory: Bacteriology Report Performed By: [facility] [CLIA# [id number]] [address] [place] [address]
--- OUTSIDE RECORDS SUMMARY | 2022-01-19 08:43 | XMS_ITS ---
DAILY HOSPITALIZATION DATA [facility] Encounter Summary Created on:December 13, 2021 Patient:LUCAS MEEK Sex:Male :1950 Author Organization [facility] Address [address] [place] [id number] Support Name Relationship Address Phone YUSRA MEEK Unavailable [address] [place] [address] YUSRA MEEK Unavailable [address] [place] [facility] [place] [address] CLAY MOSLEY Unavailable Unavailable SJ SANTACRUZ Unavailable [...] MEDICARE MEDICARE PART Jun 18, PART A [id number] DO KALYANI PATIENT (WNR) (M) A 2016 13A 1 U[place]AS MEDICARE MEDICARE PART Jun 18, PART B [id number] DO KALYANI PATIENT (WNR) (M) B 2017 13A 1 [place] MEDICARE MEDICARE PART Jun 18, PART B [id number] KALYANIDO PATIENT (WNR) (M) B 2017 VH81 2 [place]AS MEDICARE MEDICARE PART Jun 18, PART A [id number] DO KALYANI PATIENT (WNR) (M) A 2017 VH81 2 [place] UNITED MEDICARE MCR(W Jun 18 [id number] Luz MEEK PATIENT HEALTHCARE ADVANTAGE NR) 2021 37 0 [facility] (WNR) Selected Encounter This section includes the information on record at [place] for the Encounter. Date/Time Encounter Type Encounter Description Reason Provider Source Dec 13, 2021 01:53 Inpatient Visit DAILY HOSPITALIZATION DATA AM [facility] Encounter Template Text not used by [place] [facility] Jan 06, 2022 02:00 PM [place] [facility] Jan 10, 2022 11:30 AM AMBULATORY - MEDICINE [facility] Jan 24, 2022 08:00 [place] [facility] Feb 21, 2022 10:00 AM [place] [facility] Mar 21, [...] The data comes from all [place] treatment [facility]. Test Date/Time Test Type Test Details Facility Name October 31, 2021 07:37 AM Consult Order COMMUNITY CARE-EGD [facility] Cons [employer] November 15, 2021 10:37 AM Consult Order [facility] CARE-PODIATRY Cons [employer] Dec 06, 2021 12:52 PM Pharmacy [...] OUTPATIENT Cons [facility] [employer] Jan 15, 2022 10:08 PM Consult Order [facility] CARE-PALLIATIVE CARE Cons [employer] Lab Results: +/- 30 days of [...] Reference Range Comment Dec 15, 2021 [place] P4 GLU,BUN,CREAT,LYTES,[place] Speci men Type: PLASMA 06:43 AM [facility] Comment: Tests performed on Quick Hit (405) SN:[id number] Ordering Provid er: ISATU TODD Report Released Date/Time: Dec 11, 2021 07:42 AM Reporting Lab: [facility] T [facility] [address] [facility] [address] Performing Lab: [facility] [address] [facility] [address] UREA NITROGEN 9 7-25 SODIUM 137 135-145 [...] Lab: [facility] [address] [facility] [address] Performing Lab: [facility] [address] [facility] [address] WBC 5.7 4.5-11.0 RBC 4.22 L 4.23-5.66 [...] 0.00 0-0 Dec 14, 2021 [facility] CYTOGENETIC Specimen Type: ESOPHAGUS 02:59 PM VAOC FISH([facility] Comment: ~For T est: CYTOGENETIC FISH([facility] [place] [place]) ~FISH HER 2 NUE, FFPE See full report in Videofropper Image display viewer/tab#LAB-Reference Ordering Provid er: NIURKA MILLER Report Released Date/Time: Dec 21, 2021 12:11 PM Reporting Lab: [facility] [address] [facility] [address] Performing Lab: [facility] CYTOGENETIC FISH([facility] [place]) comment Dec 14, 2021 [facility] P4 GLU,BUN,CREAT,LYTES,[place] Speci men Type: PLASMA 06:27 AM [facility] Comment: Tests performed on Quick Hit (405) SN:[id number] Ordering Provid er: ISATU TODD Report Released Date/Time: Dec 11, 2021 07:42 AM Reporting Lab: [facility] [address] [facility] [address] Performing Lab: [facility] [address] [facility] [address] UREA NITROGEN 10 7-25 SODIUM 137 135-145 POTASSIUM 4.0 3.5-5.0 CHLORIDE 104 100-110 CARBON DIOXIDE 25 20-30 ANION GAP 8 4-16 GLUCOSE 99 65-100 CREATININE 0.67 0.5-1.5 CALCIUM 8.2 L 8.5-10.5 eGFR(CKD-EPI 2020) >90.0 >60 Dec 14, 2021 06:27 AM [facility] Sp ecimen Type: BLOOD No comment enter ed. Ordering Provid er: ISATU TODD Report Released Date/Time: Dec 10, 2021 07:22 AM Reporting Lab: [facility] [address] [facility] [address] Performing Lab: [facility] [address] [facility] [address] WBC 6.0 4.5-11.0 RBC 4.29 4.23-5.66 HGB [...] 0.00 0-0 Dec 13, 2021 06:34 AM [facility] CBC PROFILE Sp ecimen Type: BLOOD No comment enter ed. Ordering Provid er: ISATU TODD Report Released Date/Time: Dec 10, 2021 07:22 AM Reporting Lab: [facility] [address] [facility] [address] Performing Lab: [facility] [address] [facility] [address] WBC 5.6 4.5-11.0 RBC 4.28 4.23-5.66 HGB [...] 0.00 0-0 Dec 13, 2021 [facility] P4 GLU,BUN,CREAT,LYTES,[place] Speci men Type: PLASMA 06:34 AM [facility] Comment: Tests performed on Quick Hit (405) SN:[id number] Ordering Provid er: ISATU TODD Report Released Date/Time: Dec 11, 2021 07:42 AM Reporting Lab: [facility] [address] [facility] [address] Performing Lab: [facility] [address] [facility] [address] UREA NITROGEN 12 7-25 SODIUM 136 135-145 POTASSIUM 3.9 3.5-5.0 CHLORIDE 105 100-110 CARBON DIOXIDE 24 20-30 ANION GAP 7 4-16 GLUCOSE 102 H 65-100 CREATININE 0.66 0.5-1.5 CALCIUM 8.3 L 8.5-10.5 eGFR(CKD-EPI 2020) >90.0 >60 Dec 12[facility] GLU,BUN,CREAT,LYTES,[place] Speci men Type: PLASMA 06:21 AM [facility] Comment: Tests performed on Quick Hit (405) SN:[id number] Ordering Provid er: ISATU TODD Report Released Date/Time: Dec 11, 2021 07:42 AM Reporting Lab: [facility] [address] [facility] [address] [facility]forming Lab: [facility] [address] [facility] [address] UREA NITROGEN 11 7-25 SODIUM 139 135-145 POTASSIUM 4.1 3.5-5.0 CHLORIDE 107 100-110 CARBON DIOXIDE 24 20-30 ANION GAP 8 4-16 GLUCOSE 110 H 65-100 CREATININE 0.70 0.5-1.5 CALCIUM 8.3 L 8.5-10.5 eGFR(CKD-EPI 2020) >90.0 >60 Dec 12, 2021 06:[address] [facility] CBC PROFILE Sp ecimen Type: BLOOD No comment enter ed. Ordering Provid er: ISATU TODD Report Released Date/Time: Dec 10, 2021 07:22 AM Reporting Lab: [facility] [address] [facility] [address] [facility]forming Lab: [facility] [address] [facility] [address] WBC 5.5 4.5-11.0 RBC 4.37 4.23-5.66 HGB [...] 0.00 0-0 Dec 12, 2021 06:00 AM [facility] MAGNESIUM Sp ecimen Type: PLASMA Comment: Testin g Performed on Quick Hit (405) SN:[id number] Ordering Provid er: ISATU OTDD Report Released Date/Time: Dec 12, 2021 08:24 AM Reporting Lab: [place] [facility] [address] [facility] [address] Performing Lab: [place] [facility] [address] [facility] [address] MAGNESIUM 1.8 1.6-2.6 Dec 12, 2021 06:00 AM [facility] PHOSPHORUS Sp ecimen Type: PLASMA Comment: Testin g Performed on Quick Hit (405) SN:[id number] Ordering Provid er: ISATU TODD Report Released Date/Time: Dec 12, 2021 08:24 AM Reporting Lab: [place] [facility] [address] [facility] [address] Performing Lab: [place] [facility] [address] [facility] [address] PHOSPHORUS 3.1 2.5-5.0 Dec 11, 2021 06:15 AM [place] [facility] ELECTROLYTES Sp ecimen Type: PLASMA Comment: Tests performed on Quick Hit (405) SN:[id number] Ordering Provid er: ISATU TODD Report Released Date/Time: Dec 10, 2021 07:22 AM Reporting Lab: [place] [facility] [address] [facility] [address] Performing Lab: [place] [facility] [address] [facility] [address] SODIUM 137 135-145 POTASSIUM 4.3 3.5-5.0 CHLORIDE 108 100-110 CARBON DIOXIDE 20 20-30 ANION GAP 9 4-16 Dec 11, 2021 06:15 AM [place] [facility] CBC PROFILE Sp ecimen Type: BLOOD Comment: Result s checked Ordering Provid er: ISATU TODD Report Released Date/Time: Dec 10, 2021 07:22 AM Reporting Lab: [place] [facility] [address] [facility] [address] Performing Lab: [place] [facility] [address] [facility] [address] WBC 5.8 4.5-11.0 RBC 4.37 4.23-5.66 HGB [...] 0.00 0-0 Dec 11, 2021 06:[address] PHOSPHORUS Sp ecimen Type: PLASMA Comment: Tests performed on Quick Hit (336) SN:[id number] Results checked Ordering Provid er: ISATU TODD Report Released Date/Time: Dec 11, 2021 07:44 AM Reporting Lab: [facility] [facility] [address] [facility] [address] Performing Lab: [place] [facility] [address] [facility] [address] PHOSPHORUS 3.0 2.5-5.0 Dec 10, 2021 08:05 AM [place] [facility] MAGNESIUM Sp ecimen Type: PLASMA Comment: [place] [id number] on Dec 10, 2021@08:31 Tests performed on Quick Hit (405) SN:[id number] Ordering Provid er: ISATU TODD Report Released Date/Time: Dec 10, 2021 07:22 AM Reporting Lab: [place] [facility] [address] [facility] [place] [place] [address] Performing Lab: [place] [facility] [address] [facility] [place] [address] MAGNESIUM 1.7 1.6-2.6 Dec 10, 2021 08:05 AM [place] [facility] PHOSPHORUS Sp ecimen Type: PLASMA Comment: [place] [id number] on Dec 10, 2021@08:31 Tests performed on Quick Hit (405) SN:[id number] Ordering Provid er: ISATU TODD Report Released Date/Time: Dec 10, 2021 07:22 AM Reporting Lab: [place] [facility] [address] [facility] [place] [place] [address] Performing Lab: [place] [facility] [address] [facility] [place] [address] PHOSPHORUS 1.8 L 2.5-5.0 Dec 10, 2021 08:05 AM [place] UREA NITROGEN Specimen Type: PLASMA [facility] Comment: [place] [id number] on Dec 10, 2021@08:31 Tests performed on Quick Hit (405) SN:[id number] Ordering Provid er: ISATU TODD Report Released Date/Time: Dec 10, 2021 07:22 AM Reporting Lab: [place] [facility] [address] [facility] [place] [address] Performing Lab: [place] [facility] [address] [facility] [place] [address] UREA NITROGEN 8 7-25 Dec 10, 2021 08:05 AM [place] [facility] GLUCOSE Sp ecimen Type: PLASMA Comment: [place] [id number] on Dec 10, 2021@08:31 Tests performed on Quick Hit (405) SN:[id number] Ordering Provid er: ISATU TODD Report Released Date/Time: Dec 10, 2021 07:22 AM Reporting Lab: [place] [facility] [address] [facility] [address] Performing Lab: [place] [facility] [address] [facility] [address] GLUCOSE 144 H 65-100 Dec 10, 2021 08:05 AM [place] [facility] CALCIUM Sp ecimen Type: PLASMA Comment: [place] [id number] on Dec 10, 2021@08:31 Tests performed on Quick Hit (405) SN:[id number] Ordering Provid er: ISATU TODD Report Released Date/Time: Dec 10, 2021 07:22 AM Reporting Lab: [place] [facility] [address] [facility] [address] Performing Lab: [place] [facility] [address] [facility] [address] CALCIUM 8.3 L 8.5-10.5 Dec 10, 2021 08:05 AM [place] [facility] ELECTROLYTES Sp ecimen Type: PLASMA Comment: [place] [id number] on Dec 10, 2021@08:31 Tests performed on Quick Hit (405) SN:[id number] Ordering Provid er: ISATU TODD Report Released Date/Time: Dec 10, 2021 07:22 AM Reporting Lab: [place] [facility] [address] [facility] [address] Performing Lab: [place] [facility] [address] [facility] [address] SODIUM 139 135-145 POTASSIUM 3.7 3.5-5.0 CHLORIDE 107 100-110 CARBON DIOXIDE 24 20-30 ANION GAP 8 4-16 Dec 10, 2021 08:05 AM [place] [facility] CBC PROFILE Sp ecimen Type: BLOOD No comment enter ed. Ordering Provid er: ISATU TODD Report Released Date/Time: Dec 10, 2021 07:22 AM Reporting Lab: [place] [facility] [address] [facility] [address] Performing Lab: [place] [facility] [address] [facility] [address] WBC 7.0 4.5-11.0 RBC 4.54 4.23-5.66 HGB [...] PLASMA AM [facility] PANEL [place]: [place] [id number] on Dec 10, 2021@08:31 Tests performed on Quick Hit (405) SN:[id number] Ordering Provid er: ISATU TODD Report Released Date/Time: Dec 10, 2021 07:22 AM Reporting Lab: [facility] [address] [facility] [address] Performing Lab: [facility] [address] [facility] [address] CREATININE 0.78 0.5-1.5 eGFR(CKD-EPI 2020) >90.0 >60 Dec 09, 2021 06:46 AM [place] [facility] MAGNESIUM Sp ecimen Type: PLASMA Comment: Tests performed on Quick Hit (405) SN:[id number] Ordering Provid er: ISATU TODD Report Released Date/Time: Dec 08, 2021 10:23 AM Reporting Lab: [place] [facility] [address] [facility] [address] Performing Lab: [place] [facility] [address] [facility] [address] MAGNESIUM 1.6 1.6-2.6 Dec 09, 2021 [facility] P4 GLU,BUN,CREAT,LYTES,CA Speci men Type: PLASMA 06:46 AM [facility] Comment: Tests performed on Quick Hit (405) SN:[id number] Ordering Provid er: ISATU TODD Report Released Date/Time: Dec 08, 2021 05:00 PM Reporting Lab: [facility] [address] [facility] [address] Performing Lab: [facility] [address] [facility] [address] UREA NITROGEN 6 L 7-25 SODIUM 134 [...] [facility] [address] [facility] [address] Performing Lab: [facility] [address] [facility] [address] WBC 7.1 4.5-11.0 RBC 4.40 4.23-5.66 HGB [...] 0-0 Dec 08, 2021 06:39 AM [facility] MAGNESIUM Sp ecimen Type: PLASMA Comment: Testin g Performed on Quick Hit (405) SN:[id number] Ordering Provid er: ISATU TODD Report Released Date/Time: Dec 07, 2021 10:32 AM Reporting Lab: [facility] [address] [facility] [address] Performing Lab: [facility] [address] [facility] [address] MAGNESIUM 1.5 L 1.6-2.6 Dec 08, 2021 06:39 AM [facility] CBC PROFILE Sp ecimen Type: BLOOD No comment enter ed. Ordering Provid er: ISATU TODD Report Released Date/Time: Dec 07, 2021 10:32 AM Reporting Lab: [facility] [address] [facility] [address] [facility] Lab: [facility] [address] [facility] [address] WBC 8.4 4.5-11.0 RBC 4.75 4.23-5.66 HGB [...] ABSOLUTE NRBC 0.00 0-0 Dec 08, [facility] P4 GLU,BUN,CREAT,LYTES,CA Speci men Type: PLASMA 06:39 AM [facility] Comment: Testin g Performed on Pham stylemarks (405) SN:[id number] Ordering Provid er: ISATU TODD Report Released Date/Time: Dec 07, 2021 10:32 AM Reporting Lab: [facility] [address] [facility] [address] Performing Lab[facility] [address] [facility] [address] UREA NITROGEN 6 L 7-25 SODIUM 136 135-145 POTASSIUM 3.3 L 3.5-5.0 CHLORIDE 104 100-110 CARBON DIOXIDE 22 20-30 ANION GAP 10 4-16 GLUCOSE 133 H 65-100 CREATININE 0.76 0.5-1.5 CALCIUM 8.4 L 8.5-10.5 eGFR(CKD-EPI 2020) >90.0 >60 Dec 07, [facility] P4 GLU,BUN,CREAT,LYTES,CA Speci men Type: PLASMA 06:42 AM [facility] Comment: Tests performed on Pham stylemarks (405) SN:[id number] Ordering Provid er: PORFIRIO WALTERS Report Released Date/Time: Dec 06, 2021 06:57 PM Reporting Lab: [place] [facility] [address] [facility] [address] Performing Lab: [facility] [address] [facility] [address] UREA NITROGEN 9 7-25 SODIUM 135 135-145 POTASSIUM 3.5 3.5-5.0 CHLORIDE 103 100-110 CARBON DIOXIDE 22 20-30 ANION GAP 10 4-16 GLUCOSE 92 65-100 CREATININE 0.73 0.5-1.5 CALCIUM 8.0 L 8.5-10.5 eGFR(CKD-EPI 2020) >90.0 >60 Dec 07, 2021 06:42 [place] LIVER PROFILE Specimen Typ e: PLASMA AM [facility] Comment: Tests performed on My Top [employer] Home [employer] Consultant (405) SN:[id number] Ordering Provid er: PORFIRIO WALTERS Report Released Date/Time: Dec 06, 2021 06:57 PM Reporting Lab: [facility] [address] [facility] [address] [facility]forming Lab: [facility] [address] [facility] [address] PROTEIN, TOTAL 5.7 L 6.0-8.5 ALBUMIN 2.4 L 3.2-5.0 BILIRUBIN, TOTAL 0.4 0.2-1.2 ALKALINE PHOSPHATASE 109 40-150 ALT(SGPT) 10 7-52 AST(SGOT) 15 5-34 FIB-4 SCORE 1.92 <2.67 Dec 07, 2021 06:42 AM [facility] CBC PROFILE Specimen Type: BLOOD [facility] No comment enter ed. Ordering Provid er: PORFIRIO WALTERS Report Released Date/Time: Dec 06, 2021 06:57 PM Reporting Lab: [facility] [address] [facility] [address] [facility]forming Lab: [facility] [address] [facility] [address] WBC 5.7 4.5-11.0 RBC 4.15 L 4.23-5.66 [...] [facility] %) AUTOMATED Comment: Tests performed on Quick Hit (405) SN:[id number] Ordering Provid er: ISATU TODD Report Released Date/Time: Dec 07, 2021 10:28 AM Reporting Lab: [place] [facility] [address] [facility] [address] Performing Lab: [place] [facility] [address] [facility] [address] RETICULOCYTES (%) AUTOMATED 1.23 0. 6-2.0 RETICULOCYTES (ABS) AUTOMATED 0.052 0.030-0.090 Dec 06, 2021 09:45 [place] MRSA SURVL NARES Specimen Ty pe: NARES PM [facility] DNA No comment enter ed. Ordering Provid er: ALVARO VARGHESE Report Released Date/Time: Dec 07, 2021 02:20 AM Reporting Lab: [place] [facility] [address] [facility] [address] Performing Lab: [place] [facility] [address] [facility] [address] MRSA SURVL NARES DNA NEGATIVE NEGATIVE Dec 06, 2021 06:00 [place] URINALYSIS W/REFLEX TO Speci men Type: URINE PM [facility] CULTURE No comment enter ed. Ordering Provid er: JELANI SÁNCHEZ Report Released Date/Time: Dec 06, 2021 11:57 AM Reporting Lab: [place] [facility] [address] [facility] [address] Performing Lab: [place] [facility] [address] [facility] [address] URINE COLOR Arlin YELLOW SPECIFIC GRAVITY 1.029 [...] 21, [place] VARIANT Comment: https://www.cdc.gov/coronavirus/2019-ncov/cases-updates/variant- surveillance/variant-info.html The SoundBetter SARS CoV 2 [employer] Research Assay-GX is a next-generation sequencing (NGS) assa 2021 [facility] SEQUENCING y that determine s the complete genome sequence of the SARS-CoV-2 virus. The assay contains variant-tolerant primers to broaden and improve the coverage for variant detection and increase the sensitivity 12:00 [facility] PNL(WH) of the panel to enable detection from lower viral titer samples. The assay is run on the Foruforever Sequencer, which performs automated library preparation, sequencing, analysis, and reporting. PM The sequence an alysis includes determination of viral phylogenetic lineage by comparison to the reference strain Wuhan-Hu-1, GenBank: [id number]. Sequence determination may not be possible owing [...] Dec 06, 2021 01:13 PM Reporting Lab: [facility] [address] [facility] [address] Performing Lab: [facility] [address] [facility] [address] SARS-CoV-2 CLADE() 22C (OMICRON) SARS-CoV-2 LINEAGE() BA.2.12.1 Dec 06, 2021 12:00 [facility] COVID-19 AG SCREEN Specimen Type: NASAL CAVITY PM [facility] PANEL BINAX(405) Comment: Testi ng Performed By: Mike Briscoe Ordering Provid er: JELANI SÁNCHEZ Report Released Date/Time: Dec 08, 2021 08:23 AM Reporting Lab: [facility] [address] [facility] [address] Performing Lab: [facility] [address] [facility] [address] COVID-19 AG SCRN(wrj BINAX) POSITIVE HH NE G Dec 06, 2021 12:[address] [facility] TROPONIN II Sp ecimen Type: PLASMA Comment: Tests performed on Pham [employer] Home [employer] Consultant (405) SN:[id number] Ordering Provid er: JELANI SÁNCHEZ Report Released Date/Time: Dec 06, 2021 11:57 AM Reporting Lab: [facility] [address] [facility] [address] Performing Lab: [facility] [address] [facility] [address] TROPONIN II 0.03 0.00-0.29 Dec 06, 2021 [place] P4 GLU,BUN,CREAT,LYTES,CA Speci men Type: PLASMA 12:00 PM [facility] Comment: Testin g Performed on Pham [employer] Home [employer] Consultant (405) SN:[id number] Ordering Provid er: JELANI SÁNCHEZ Report Released Date/Time: Dec 06, 2021 11:57 AM Reporting Lab: [place] [facility] [address] [facility] [address] Performing Lab: [place] [facility] [address] [facility] [address] UREA NITROGEN 13 7-25 SODIUM 138 135-145 POTASSIUM 3.8 3.5-5.0 CHLORIDE 103 100-110 CARBON DIOXIDE 23 20-30 ANION GAP 12 4-16 GLUCOSE 105 H 65-100 CREATININE 0.90 0.5-1.5 CALCIUM 8.7 8.5-10.5 eGFR(CKD-EPI 2020) >90.0 >60 Dec 06, 2021 12:00 PM [facility] LIVER PROFILE Sp ecimen Type: PLASMA Comment: Testin g Performed on Pham [employer] Home [employer] Consultant (405) SN:[id number] Ordering Provid er: JELANI SÁNCHEZ Report Released Date/Time: Dec 06, 2021 11:57 AM Reporting Lab: [facility] [address] [facility] [address] Performing Lab: [facility] [address] [facility] [address] PROTEIN, TOTAL 6.6 6.0-8.5 ALBUMIN 2.8 L 3.2-5.0 BILIRUBIN, TOTAL 0.6 0.2-1.2 ALKALINE PHOSPHATASE 134 40-150 ALT(SGPT) 13 7-52 AST(SGOT) 18 5-34 FIB-4 SCORE 1.94 <2.67 Dec 06, 2021 [facility] COVID-19+FLU/RSV DIAGNOSTIC Spe cimen Type: NASOPHARYNX 12:00 PM [facility] PANEL(405) Comment: Tests performed on [employer] Gen[employer]pert (405) Critical results called to and read back by: ALESHIA WILKINSON RN 12/06/21 @ 1312 Ordering Provid er: JELANI SÁNCHEZ Report Released Date/Time: Dec 06, 2021 11:57 AM Reporting Lab: [facility] [address] [address] Performing Lab: [facility] [address] [facility] [address] FLU A(PCR) NEGATIVE NEGATIVE FLU B(PCR) NEGATIVE NEGATIVE RSV(PCR) NEGATIVE NEGATIVE COVID-19([id number]) DETECTED HH NO T DETECTED Dec 06, 2021 12:00 PM [facility] BNP(P) Sp ecimen Type: PLASMA Comment: Tests performed on [employer] Consultant (405) [id number] Ordering Provid er: JELANI SÁNCHEZ Report Released Date/Time: Dec 06, 2021 11:57 AM Reporting Lab: [facility] [address] [facility] [address] Performing Lab: [facility] [address] [address] BNP(P) 224.8 H 10-100 Dec 06, 2021 12:00 PM [facility] CBC PROFILE Sp ecimen Type: BLOOD No comment enter ed. Ordering Provid er: JELANI SÁNCHEZ Report Released Date/Time: Dec 06, 2021 11:57 AM Reporting Lab: [facility] [address] [address] Performing Lab: [facility] [address] [address] WBC 7.2 4.5-11.0 RBC 4.86 4.23-5.66 HGB [...] WHITE 2021 09:20 /min mm[Hg] RIVER PM [facility] Dec 13, 97.9 F 82 108/62 20 /min 96 % 2021 03:27 /min mm[Hg] RIVER PM T [facility] Dec 13, 0 WHITE 2021 02:44 RIVER PM T [facility] Dec 13, 0 WHITE 2021 08:15 RIVER AM [facility] Dec 13, 0 WHITE 2021 05:18 RIVER AM [facility] Social History: Smoking Status (Most current) [...] took place. Date/Time Smoking Status/Tobacco Use Comment [facility] Apr 01, 2020 01:16 PM [...] USE IN PAST YEAR [facility] [place] [facility] Mar 16, 2016 12:50 PM V1-PT DECLINES REF TO TOBACCO CAREY DOYLE [facility] CESS PRGM Mar 16, 2016 12:50 PM V1-PT THINKING ABOUT QUIT CAREY DOYLE [facility] TOBACCO USE Aug 12, 2015 08:48 AM CURRENT SMOKER CAREY Yates [facility] Radiology Reports: +/- 30 days of [...] W/WO CONTRAST: MARYELLEN LONG LUCAS LARES N [id number] -1950 [facility] Exm Date: DEC 13, 2021@12:57 Req Phys: ISATU TODD Loc: OP Unknown/0 12-15-2021@13:20 Img Loc: MRI IMAGING (OOS) Service: [facility]GENERAL MEDICINE (Case [id number] COMPLETE) MRI ABDOMEN W/WO CONTRAST (M RI Detailed) CPT:31175 Reason for Study: further characterization of a [...] new lyphadenopathy REQUESTING MD: Isatu Todd PAGER: [phone] PHONE: [phone] Weight: 232.2 lb [105.32 kg] (12/12/2021 05:00) [...] patient will need to arrange for a food service driver to take him/her home after the [...] 15, 2021 Date Verified: DEC 15, 2021 [employer] E-Sig:/ES/MARYELLEN LONG Report: MRI ABDOMEN W/WO [...] MALIGNANCY Primary Interpreting Staff: Staff AMELIA THOMAS ([employer]) / Dec 10, 2021 09:[address] ABDOMEN & PELVIS: [facility] LUC[facility] MEEK N [id number] -1950 M SERVICE [facility] Ex Date: DEC 10, 2021@09:30 Req Phys: ISATU TODD Loc: 1S MED/12-10@10:57 Img Loc: CT SCAN (OOS) Service: [facility] MEDICINE (Case [id number] COMPLETE) CT ABD & PELVIS WITHOUT CONT RAST (CT Detailed) CPT:71445 Reason for Study: 71 yo male with [...] INDEX - NO HEIGHTS FOUND Pager number: [phone] STAT orders MUST be call ed to RADIOLOGY [phone] to speak to the appropriate optical laboratory technician. Report Status: Verified Date Reported: DEC 10, 2021 Date Verified: DEC 10, 2021 [employer] E-Sig: Report: EXAM: CT abdomen and [...] ph nodes. READING PHYSICIAN: Ramone Munoz D.O. -[phone] 12/10/2021 10:55 EDT [facility] National Teleradiology Program [phone] (For Medical Practitioner Use Only ) [address] [facility], [facility] [address], [address] [place] [address] Attention Patients / Veterans: If you have ques tions or concerns about these test results, please contact your o rdering provider or primary care team. Primary Diagnostic Code: SIGNIFICANT ABNORMALIT Y, ATTN NEEDED Primary Interpreting Staff: RADIOLOGY,OUTSIDE SERVICE, Staff Physician / Dec 09, 2021 07:34 AM BASW (MODIFIED): JESSIE CHENEY TARA ER JCT LUCAS MEEK N [id number] -1950 [facility] Exm Date: DEC 09, 2021@07:34 Req Phys: ISATU TODD Josseline Loc: 1S MED/12-09@11:26 Img Loc: XRAY (OOS) Service: [facility] MEDICINE (Case [id number] COMPLETE) BASW (MODIFIED) (RAD Detaile d) CPT:44539 Contrast Media : Barium Reason for Study: dysphagia ?esophageal spasm Clinical History: Report Status: Verified Date Reported: DEC 09, 2021 Date Verified: DEC 09, 2021 [employer] E-Sig:/ES/JESSIE CHENEY Report: BASW (MODIFIED) , 12/09/2021 [...] REQUIRED Primary Interpreting Staff: JESSIE CHENEY, RADIOLOGIST ([employer]) /TLC Dec 06, 2021 12:[address] CHEST (INCLUDES ADRENALS): [facility]UC[facility]EEK N [id number] -1950 [facility] Exm Date: DEC 06, 2021@12:59 Req Phys: GONZALO,JELANI J Pat Loc: [facility] ED DAYS M 1RD (Req'g Loc) Img Loc: CT SCAN (OOS) Service: Unknown (Case [id number] COMPLETE) CT THORAX W/O CONT (CT Detai led) CPT:02418 Reason for Study: Opacification right chest Clinical History: No contrast allergy BUN: 13 (12/06/21 12:00) CREATI: 0.90 (12/06/21 12:00) eGFR 05/16/21 09:43 52 L Weight: 232.6 lb [105.51 kg] (12/06/2021 11:40) BODY MASS INDEX - NO HEIGHTS FOUND Pager number: [phone] STAT orders MUST be called t o RADIOLOGY [phone] to speak to the appropriate optical laboratory technician. Indications - Other: Opacification right chest, covid positive, lung cancer histo Report Status: Verified Date Reported: DEC 06, 2021 Date Verified: DEC 06, 2021 [employer] E-Sig:/ES/JESSIE CHENEY Report: CT THORAX W/O [...] REQUIRED Primary Interpreting Staff: JESSIE CHENEY, RADIOLOGIST ([employer]) Primary Interpreting Resident: PRINCE CHAMPION, Resident /BR Dec 06, 2021 11:58 AM CHEST SINGLE VIEW: JESSIE CHENEY DOUGLAS N [id number] -1950 M [facility] Exm Date: DEC 06, 2021@11:58 Req Phys: JELANI SÁNCHEZ Pat Loc: [facility] ED DAYS M 1RD (Req'g Loc) Img Loc: XRAY (OOS) Service: Unknown (Case [id number] COMPLETE) CHEST SINGLE VIEW (RAD Detai led) CPT:30781 Proc Modifiers : PORTABLE EXAM Reason for Study: SOB, home covid test positive Clinical History: Report Status: Verified Date Reported: DEC 06, 2021 Date Verified: DEC 06, 2021 [employer] E-Sig:/ES/JESSIE CHENEY Report: Exam type: Chest [...] REQUIRED Primary Interpreting Staff: JESSIE CHENEY, RADIOLOGIST ([employer]) /TLC Pathology Reports: +/- 30 days [...] COMPLETED $APHDR Reporting Lab: CAREY MONTOYA [facility] [CLIA# [id number]] [address] [place] [address] - - - - - - [...] automatically d ocumented from SURGERY package case #[id number] Field (#32) PRINCIPAL PRE-OP DIAGNOSIS, (#.72) OTHER [...] automatically d ocumented from SURGERY package case #[id number] Field (#34) PRINCIPAL POST-OP DIAG, (#.74) OTHER [...] Label: Lucas Meek Paperwork: Lucas Meek Cassette: [id number];..;KALYANI;.;405;[id number] Specimen is labeled: ES bx Received in formalin are several pieces of pale boyd and brown tissue, 1.2 x 0.7 cm in aggregate. Submitted entirely in 1 cassette [id number];..;KALYANI;.;405;[id number] SAW 12/15/2021 Microscopic exam: *+* MODIFIED REPORT *+* (Last modified: JAN 03, 2022@09:30:20 typed by NIURKA WADDELL) DIAGNOSIS: A. 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 Kendell long. TIARA Coombs was notified on 12/21/21. Modified on 01/03/22 to include report from [facility] stating that tumor is NEGATIVE for her2/ matheus amplification. The attending pathologist who signature mansoor ears on this report has reviewed all diagnostic slides and has edited t he gross and/or microscopic portion of this report in rendering the final pathologic diagnosis. [address] [address] CPT: 78525 /emely/ NIURKA Yeung MD Signed Jan 03, 2022@10:28 Performing Laboratory: Surgical Pathology Report Performed By: CAREY MONTOYA [facility] [CLIA# [id number]] [address] [place] [address] $FTR - - - - - [...] - - LUCAS MEEK STANDARD FORM 515 ID:[id number] SEX:M :1950 AGE: 71 LOC: SDM END [...] $APHDR Reporting Lab: [facility] [CLIA# [id number]] [address] [place] [address] - - - - - - [...] automatically d ocumented from SURGERY package case #[id number] Field (#32) PRINCIPAL PRE-OP DIAGNOSIS, (#.72) OTHER [...] automatically d ocumented from SURGERY package case #[id number] Field (#34) PRINCIPAL POST-OP DIAG, (#.74) OTHER [...] Label: Lucas Meek Paperwork: Lucas Meek Cassette: [id number];..;KALYANI;.;405;[id number] Specimen is labeled: ES bx Received in formalin are several pieces of pale boyd and brown tissue, 1.2 x 0.7 cm in aggregate. Submitted entirely in 1 cassette [id number];..;KALYANI;.;405;[id number] SAW 12/15/2021 Microscopic exam: DIAGNOSIS: A. 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 Kendell long. TIARA Coombs was notified on 12/21/21. The attending pathologist who signature mansoor ears on this report has reviewed all diagnostic slides and has edited t he gross and/or microscopic portion of this report in rendering the final pathologic diagnosis. [address] [address] CPT: 63587 /emely/ NIURKA Yeung MD Signed Dec 21, 2021@11:46 Performing Laboratory: Surgical Pathology Report Performed By: [facility] [CLIA# [id number]] [address] [place] [address] $FTR - - - - - [...] - - LUCAS MEEK STANDARD FORM 515 ID:[id number] SEX:M :1950 AGE: 71 LOC: [facility] END PCP: Isatu Todd /charmaine Yeung MD Signed: 12/21/2021 11:46 Dec 06, 2021 03:30 PM LR MICROBIOLOGY REPORT: [facility] Reporting Lab: [facility] [CLIA# [id number]] [address] [place] [address] Accession [UID]: [id number] [[id number]] Receiv ed: Dec 06, 2021@16:14 Collection sample: BLOOD CUL T BOTTLE(NIRMAL/AERO)Collection date: Dec 06, 2021 15:30 Site/Specimen: BLOOD Provider: JELANI SÁNCHEZ Comment on specimen: LAC Test(s) ordered: BLOOD CULTURE ANAEROBI C....... completed: Dec 12, 2021 06:18 * BACTERIOLOGY FINAL REPORT => Dec 12, 2021 06:1 8 TECH CODE: 20007 Bacteriology Remark(s): NO GROWTH IN 5 DAYS =--=--=--=--=--=--=--=--=--=--=--=--=--= --=--=--=--=--=--=--=--=--=--=--=--=-- Performing Laboratory: Bacteriology Report Performed By: [facility] [CLIA# [id number]] [address] [place] [address] Dec 06, 2021 03:30 PM LR MICROBIOLOGY REPORT: [facility] Reporting Lab: [facility] [CLIA# [id number]] [address] [place] [address] Accession [UID]: [id number] [[id number]] Receiv ed: Dec 06, 2021@16:14 Collection sample: BLOOD CUL T BOTTLE(NIRMAL/AERO)Collection date: Dec 06, 2021 15:30 Site/Specimen: BLOOD Provider: JELANI SÁNCHEZ Comment on specimen: LAC Test(s) ordered: BLOOD CULTURE AEROBIC. ........ completed: Dec 12, 2021 06:17 * BACTERIOLOGY FINAL REPORT => Dec 12, 2021 06:1 7 TECH CODE: [id number] Bacteriology Remark(s): NO GROWTH IN 5 DAYS =--=--=--=--=--=--=--=--=--=--=--=--=--= --=--=--=--=--=--=--=--=--=--=--=--=-- Performing Laboratory: Bacteriology Report Performed By: [facility] [CLIA# [id number]] [address] [place] [address]
--- OUTSIDE RECORDS SUMMARY | 2022-01-19 08:44 | XMS_ITS ---
DAILY HOSPITALIZATION DATA [facility]Y DOYLE [facility] Encounter Summary Created on:December 13, 2021 Patient:LUCAS MEEK Sex:Male :1950 Author Organization [facility] Address [address] [place] [id number] Support Name Relationship Address Phone YUSRA MEEK Unavailable [address] [place] [address] YUSRA MEEK Unavailable [address] [place] [facility] [place] [place] [address] CLAY MOSLEY Unavailable Unavailable SJ SANTACRUZ Unavailable [...] MEDICARE MEDICARE PART Jun 18, PART A [id number] DO KALYANI PATIENT (WNR) (M) A 2016 13A 1 UGLAS MEDICARE MEDICARE PART Jun 18, PART B [id number] DO KALYANI PATIENT (WNR) (M) B 2016 13A 1 [place]AS MEDICARE MEDICARE PART Jun 18, PART A [id number] KALYANIDO PATIENT (WNR) (M) A 2017 VH81 2 [place]AS MEDICARE MEDICARE PART Jun 18, PART B [id number] DO KALYANI PATIENT (WNR) (M) B 2017 VH81 2 [place]AS UNITED MEDICARE MCR(Jun 18 [id number] Luz MEEK PATIENT HEALTHCARE ADVANTAGE NR) 2021 37 0 [facility] (WNR) Selected Encounter This section includes the information on record at [place] for the Encounter. Date/Time Encounter Type Encounter Description Reason Provider Source Dec 13, 2021 03:42 Inpatient Visit DAILY HOSPITALIZATION DATA AM [facility] Encounter Template Text not used by [place] [...] [place] [facility] Jan 10, 2022 11:30 AM AMBULATORY - MEDICINE [facility] Jan 24, 2022 08:00 AM [place] [facility] Feb 21, 2022 10:00 AM [place] [facility] Mar 21, 2022 10:30 AM AMBULATORY - [...] The data comes from all [place] treatment [facility]. Test Date/Time Test Type Test Details Facility Name October 31, 2021 07:37 AM Consult Order [facility]ARE-EGD [facility] Cons Shift Coordinator's Choice November 15, 2021 10:37 AM Consult Order [facility] CARE-PODIATRY Cons Shift Coordinator's Choice Dec 06, 2021 12:52 PM Pharmacy [place] Infusion Order [facility] Dec 06, 2021 03:24 PM Pharmacy [place] [facility] Dec 06, 2021 03:40 PM Pharmacy [place] Order [facility] Dec 15, 2021 08:41 AM Consult Order SPEECH PATHOLOGY [place] OUTPATIENT Cons [facility] Shift Coordinator's Choice Jan 15, 2022 10:08 PM Consult Order [facility] CARE-PALLIATIVE CARE Cons Shift Coordinator's Choice Lab Results: +/- 30 days [...] Reference Range Comment Dec 15, 2021 [place] P4 GLU,BUN,CREAT,LYTES,CA Speci men Type: PLASMA 06:43 AM [facility] Comment: Tests performed on Kydaemos (405) SN:[id number] Ordering Provid er: ISATU TODD Report Released Date/Time: Dec 11, 2021 07:42 AM Reporting Lab: [facility] T [facility] [address] [facility] [address] Performing Lab: [facility] [address] [facility] [address] UREA NITROGEN 9 7-25 SODIUM 137 135-145 POTASSIUM 3.8 3.5-5.0 CHLORIDE 105 100-110 CARBON DIOXIDE 26 20-30 ANION GAP 6 4-16 GLUCOSE 102 H 65-100 CREATININE 0.64 0.5-1.5 CALCIUM 8.1 L 8.5-10.5 eGFR(CKD-EPI 2020) >90.0 >60 Dec 15, 2021 06:43 AM [facility] CBC PROFILE Sp ecimen Type: BLOOD No comment enter ed. Ordering Provid er: ISATU TODD Report Released Date/Time: Dec 10, 2021 07:22 AM Reporting Lab: [facility] T [facility] [address] [facility] [address] Performing Lab: [facility] [address] [facility] [address] WBC 5.7 4.5-11.0 RBC 4.22 L 4.23-5.66 [...] 0.00 0-0 Dec 14, 2021 [facility] CYTOGENETIC Specimen Type: ESOPHAGUS 02:59 PM VA[facility] FISH([facility] Comment: ~For T est: CYTOGENETIC FISH([facility]) ~FISH HER 2 NUE, FFPE See full report in [employer] Image display viewer/tab#LAB-Reference Ordering Provid er: NIURKA MILLER Report Released Date/Time: Dec 21, 2021 12:11 PM Reporting Lab: [facility] [address] [facility] [address] Performing Lab: [facility] CYTOGENETIC FISH([facility] comment Dec 14, 2021 [facility] P4 GLU,BUN,CREAT,LYTES,CA Speci men Type: PLASMA 06:27 AM [facility] Comment: Tests performed on Kydaemos (405) SN:[id number] Ordering Provid er: ISATU TODD Report Released Date/Time: Dec 11, 2021 07:42 AM Reporting Lab: [facility] [address] [facility] [address] Performing Lab: [facility] [address] [facility] [address] UREA NITROGEN 10 7-25 SODIUM 137 135-145 [...] Reporting Lab: [facility] [address] [facility] [address] Performing Lab: [facility] [address] [facility] [address] WBC 6.0 4.5-11.0 RBC 4.29 4.23-5.66 HGB [...] 0.00 0-0 Dec 13, 2021 [facility] P4 GLU,BUN,CREAT,LYTES,CA Speci men Type: PLASMA 06:34 AM [facility] Comment: Tests performed on Kydaemos (405) SN:[id number] Ordering Provid er: ISATU TODD Report Released Date/Time: Dec 11, 2021 07:42 AM Reporting Lab: [facility] [address] [facility] [address] Performing Lab: [facility] [address] [facility] [address] UREA NITROGEN 12 7-25 SODIUM 136 135-145 [...] Reporting Lab: [facility] [address] [facility] [address] Performing Lab: [facility] [address] [facility] [address] WBC 5.6 4.5-11.0 RBC 4.28 4.23-5.66 HGB [...] 0.00 0-0 Dec 12, 2021 [facility] P4 GLU,BUN,CREAT,LYTES,CA Speci men Type: PLASMA 06:21 AM [facility] Comment: Tests performed on Kydaemos (405) SN:[id number] Ordering Provid er: ISATU TODD Report Released Date/Time: Dec 11, 2021 07:42 AM Reporting Lab: [facility] [address] [facility] [address] Performing Lab: [facility] [address] [facility] [address] UREA NITROGEN 11 7-25 SODIUM 139 135-145 [...] Dec 10, 2021 07:22 AM Reporting Lab: [facility] [address] [facility] [address] Performing Lab: [facility] [address] [facility] [address] WBC 5.5 4.5-11.0 RBC 4.37 4.23-5.66 HGB [...] 0.00 0-0 Dec 12, 2021 06:00 AM mBloxT [facility] MAGNESIUM Sp ecimen Type: PLASMA Comment: Testin g Performed on Kydaemos (405) SN:[id number] Ordering Provid er: ISATU TODD Report Released Date/Time: Dec 12, 2021 08:24 AM Reporting Lab: [place] [facility] [address] [facility] [address] Performing Lab: [employer] [place] [facility] [address] [facility] [address] MAGNESIUM 1.8 1.6-2.6 Dec 12, 2021 06:00 AM [facility] PHOSPHORUS Sp ecimen Type: PLASMA Comment: Testin g Performed on Kydaemos (405) SN:[id number] Ordering Provid er: ISATU TODD Report Released Date/Time: Dec 12, 2021 08:24 AM Reporting Lab: [place] [facility] [address] [facility] [address] Performing Lab: [place] [facility] [address] [facility] [address] PHOSPHORUS 3.1 2.5-5.0 Dec 11, 2021 06:15 AM [employer] [place] [facility] [employer] ELECTROLYTES Sp ecimen Type: PLASMA Comment: Tests performed on Kydaemos (405) SN:[id number] Ordering Provid er: ISATU TODD Report Released Date/Time: Dec 10, 2021 07:22 AM Reporting Lab: [place] [facility] [address] [facility] [address] Performing Lab: [place] [facility] [address] [facility] [address] SODIUM 137 135-145 POTASSIUM 4.3 3.5-5.0 CHLORIDE 108 100-110 CARBON DIOXIDE 20 20-30 ANION GAP 9 4-16 Dec 11, 2021 06:15 AM [place] [employer] CBC PROFILE Sp ecimen Type: BLOOD Comment: Result s checked Ordering Provid er: ISATU TODD Report Released Date/Time: Dec 10, 2021 07:22 AM Reporting Lab: [place] [facility] [address] [facility] [address] Performing Lab: [place] OMEGAT [facility] [address] [facility] [address] WBC 5.8 4.5-11.0 RBC 4.37 4.23-5.66 HGB [...] 0.00 0-0 Dec 11, 2021 06:00 AM [facility] PHOSPHORUS Sp ecimen Type: PLASMA Comment: Tests performed on Kydaemos (710) SN:[id number] Results checked Ordering Provid er: ISATU TODD Report Released Date/Time: Dec 11, 2021 07:44 AM Reporting Lab: [facility] [facility] [address] [facility] [address] Performing Lab: [place] OMEGAT [facility] [address] [facility] [address] PHOSPHORUS 3.0 2.5-5.0 Dec 10, 2021 08:05 AM [place] [facility] MAGNESIUM Sp ecimen Type: PLASMA Comment: [place] [id number] on Dec 10, 2021@08:31 Tests performed on Kydaemos (405) SN:[id number] Ordering Provid er: ISATU TODD Report Released Date/Time: Dec 10, 2021 07:22 AM Reporting Lab: [place] [facility] [address] [place] [facility] [place] [address] Performing Lab: [place] [facility] [address] [place] [facility] [place] [address] MAGNESIUM 1.7 1.6-2.6 Dec 10, 2021 08:05 AM [place] [facility] PHOSPHORUS Sp ecimen Type: PLASMA Comment: [place] [id number] on Dec 10, 2021@08:31 Tests performed on Kydaemos (405) SN:[id number] Ordering Provid er: ISATU TODD Report Released Date/Time: Dec 10, 2021 07:22 AM Reporting Lab: [place] [facility] [address] [place] [facility] [place] [address] Performing Lab: [place] [facility] [address] [place] [facility] [place] [address] PHOSPHORUS 1.8 L 2.5-5.0 Dec 10, 2021 08:05 AM [place] UREA NITROGEN Specimen Type: PLASMA [facility] Comment: [place] [id number] on Dec 10, 2021@08:31 Tests performed on Kydaemos (405) SN:[id number] Ordering Provid er: ISATU TODD Report Released Date/Time: Dec 10, 2021 07:22 AM Reporting Lab: [place] [facility] [address] [place] [facility] [place] [address] Performing Lab: [place] [facility] [address] [place] [facility] [place] [address] UREA NITROGEN 8 7-25 Dec 10, 2021 08:05 AM [place] [facility] GLUCOSE Sp ecimen Type: PLASMA Comment: [place] [id number] on Dec 10, 2021@08:31 Tests performed on Kydaemos (405) SN:[id number] Ordering Provid er: ISATU TODD Report Released Date/Time: Dec 10, 2021 07:22 AM Reporting Lab: [place] [facility] [address] [facility] [address] Performing Lab: [place] [facility] [address] [facility] [address] GLUCOSE 144 H 65-100 Dec 10, 2021 08:05 AM [place] [facility] CALCIUM Sp ecimen Type: PLASMA Comment: [place] [id number] on Dec 10, 2021@08:31 Tests performed on Kydaemos (405) SN:[id number] Ordering Provid er: ISATU TODD Report Released Date/Time: Dec 10, 2021 07:22 AM Reporting Lab: [place] [facility] [address] [facility] [address] Performing Lab: [place] [facility] [address] [facility] [address] CALCIUM 8.3 L 8.5-10.5 Dec 10, 2021 08:05 AM [place] [facility] ELECTROLYTES Sp ecimen Type: PLASMA Comment: [place] [id number] on Dec 10, 2021@08:31 Tests performed on Kydaemos (405) SN:[id number] Ordering Provid er: ISATU TODD Report Released Date/Time: Dec 10, 2021 07:22 AM Reporting Lab: [place] [facility] [address] [facility] [address] Performing Lab: [place] [facility] [address] [facility] [address] SODIUM 139 135-145 POTASSIUM 3.7 3.5-5.0 CHLORIDE 107 100-110 CARBON DIOXIDE 24 20-30 ANION GAP 8 4-16 Dec 10, 2021 08:05 AM [place] [facility] CBC PROFILE Sp ecimen Type: BLOOD No comment enter ed. Ordering Provid er: ISATU TODD Report Released Date/Time: Dec 10, 2021 07:22 AM Reporting Lab: [place] [facility] [address] [facility] [address] Performing Lab: [place] [facility] [address] [facility] [address] WBC 7.0 4.5-11.0 RBC 4.54 4.23-5.66 HGB [...] PLASMA AM [facility] PANEL [place]: [place] [id number] on Dec 10, 2021@08:31 Tests performed on Kydaemos (405) SN:[id number] Ordering Provid er: ISATU TODD Report Released Date/Time: Dec 10, 2021 07:22 AM Reporting Lab: [facility] [address] [facility] [address] Performing Lab: [facility] [address] [facility] [address] CREATININE 0.78 0.5-1.5 eGFR(CKD-EPI 2020) >90.0 >60 Dec 09, 2021 06:46 AM [place] [facility] MAGNESIUM Sp ecimen Type: PLASMA Comment: Tests performed on Kydaemos (405) SN:[id number] Ordering Provid er: ISATU TODD Report Released Date/Time: Dec 08, 2021 10:23 AM Reporting Lab: [place] [facility] [address] [facility] [address] Performing Lab: [place] [facility] [address] [facility] [address] MAGNESIUM 1.6 1.6-2.6 Dec 09, 2021 [facility] P4 GLU,BUN,CREAT,LYTES,CA Speci men Type: PLASMA 06:46 AM [facility] Comment: Tests performed on Kydaemos (405) SN:[id number] Ordering Provid er: ISATU TODD Report Released Date/Time: Dec 08, 2021 05:00 PM Reporting Lab: [facility] [address] [facility] [address] Performing Lab: [facility] [address] [facility] [address] UREA NITROGEN 6 L 7-25 SODIUM 134 [...] Reporting Lab: [facility] [address] [facility] [address] Performing Lab: [facility] [address] [facility] [address] WBC 7.1 4.5-11.0 RBC 4.40 4.23-5.66 HGB [...] 0-0 Dec 08, 2021 06:39 AM [facility] MAGNESIUM Sp ecimen Type: PLASMA Comment: Testin g Performed on Kydaemos (405) SN:[id number] Ordering Provid er: ISATU TODD Report Released Date/Time: Dec 07, 2021 10:32 AM Reporting Lab: [facility] [address] [facility] [address] Performing Lab: [facility] [address] [facility] [address] MAGNESIUM 1.5 L 1.6-2.6 Dec 08, 2021 06:39 AM [facility] CBC PROFILE Sp ecimen Type: BLOOD No comment enter ed. Ordering Provid er: ISATU TODD Report Released Date/Time: Dec 07, 2021 10:32 AM Reporting Lab: [facility] [address] [facility] [address] Performing Lab: [facility] [address] [facility] [address] WBC 8.4 4.5-11.0 RBC 4.75 4.23-5.66 HGB [...] ABSOLUTE NRBC 0.00 0-0 Dec 08, 2021 [facility] P4 GLU,BUN,CREAT,LYTES,CA Speci men Type: PLASMA 06:39 AM [facility] Comment: Testin g Performed on [employer] Games (405) SN:[id number] Ordering Provid er: ISATU TODD Report Released Date/Time: Dec 07, 2021 10:32 AM Reporting Lab: [facility] [address] [facility] [address] Performing Lab: [facility] [address] [facility] [address] UREA NITROGEN 6 L 7-25 SODIUM 136 135-145 POTASSIUM 3.3 L 3.5-5.0 CHLORIDE 104 100-110 CARBON DIOXIDE 22 20-30 ANION GAP 10 4-16 GLUCOSE 133 H 65-100 CREATININE 0.76 0.5-1.5 CALCIUM 8.4 L 8.5-10.5 eGFR(CKD-EPI 2020) >90.0 >60 Dec 07, 2021 [facility] P4 GLU,BUN,CREAT,LYTES,CA Speci men Type: PLASMA 06:42 AM [facility] Comment: Tests performed on [employer]am [employer] (405) SN:[id number] Ordering Provid er: PORFIRIO WALTERS Report Released Date/Time: Dec 06, 2021 06:57 PM Reporting Lab: [place] [facility] [address] [facility] [address] Performing Lab: [facility] [address] [facility] [address] UREA NITROGEN 9 7-25 SODIUM 135 135-145 POTASSIUM 3.5 3.5-5.0 CHLORIDE 103 100-110 CARBON DIOXIDE 22 20-30 ANION GAP 10 4-16 GLUCOSE 92 65-100 CREATININE 0.73 0.5-1.5 CALCIUM 8.0 L 8.5-10.5 eGFR(CKD-EPI 2020) >90.0 >60 Dec 07, 2021 06:42 [place] LIVER PROFILE Specimen Typ e: PLASMA AM [facility] Comment: Tests performed on [employer] Spear Fisher (405) SN:[id number] Ordering Provid er: PORFIRIO WALTERS Report Released Date/Time: Dec 06, 2021 06:57 PM Reporting Lab: [facility] [address] [facility] [address] Performing Lab: [facility] [address] [facility] [address] PROTEIN, TOTAL 5.7 L 6.0-8.5 ALBUMIN 2.4 L 3.2-5.0 BILIRUBIN, TOTAL 0.4 0.2-1.2 ALKALINE PHOSPHATASE 109 40-150 ALT(SGPT) 10 7-52 AST(SGOT) 15 5-34 FIB-4 SCORE 1.92 <2.67 Dec 07, 2021 06:42 AM [place] [employer] CBC PROFILE Specimen Type: BLOOD [facility] No comment enter ed. Ordering Provid er: PORFIRIO WALTERS Report Released Date/Time: Dec 06, 2021 06:57 PM Reporting Lab: [facility] [address] [facility] [address] Performing Lab: [facility] [address] [facility] [address] WBC 5.7 4.5-11.0 RBC 4.15 L 4.23-5.66 [...] [facility] %) AUTOMATED Comment: Tests performed on Kydaemos (405) SN:[id number] Ordering Provid er: ISATU TODD Report Released Date/Time: Dec 07, 2021 10:28 AM Reporting Lab: [place] [facility] [address] [facility] [address] Performing Lab: [place] [facility] [address] [facility] [address] RETICULOCYTES (%) AUTOMATED 1.23 0. 6-2.0 RETICULOCYTES (ABS) AUTOMATED 0.052 0.030-0.090 Dec 06, 2021 09:45 [place] MRSA SURVL NARES Specimen Ty pe: NARES PM [facility] DNA No comment enter ed. Ordering Provid er: ALVARO VARGHESE Report Released Date/Time: Dec 07, 2021 02:20 AM Reporting Lab: [place] [facility] [address] [facility] [address] Performing Lab: [place] [facility] [address] [facility] [address] MRSA SURVL NARES DNA NEGATIVE NEGATIVE Dec 06, 2021 06:00 [place] URINALYSIS W/REFLEX TO Speci men Type: URINE PM [facility] CULTURE No comment enter ed. Ordering Provid er: JELANI SÁNCHEZ Report Released Date/Time: Dec 06, 2021 11:57 AM Reporting Lab: [place] [facility] [address] [facility] [address] Performing Lab: [place] [facility] [address] [facility] [address] URINE COLOR Arlin YELLOW SPECIFIC GRAVITY 1.029 [...] 21, [place]IANT Comment: https://www.cdc.gov/coronavirus/2019-ncov/cases-updates/variant- surveillance/variant-info.html The [employer] SARS CoV 2 [employer] Research Assay-GX is a next-generation sequencing (NGS) assa 2021 [facility] SEQUENCING y that determine s the complete genome sequence of the SARS-CoV-2 virus. The assay contains variant-tolerant primers to broaden and improve the coverage for variant detection and increase the sensitivity 12:00 [facility] PNL(WH) of the panel to enable detection from lower viral titer samples. The assay is run on the [employer] Sequencer, which performs automated library preparation, sequencing, analysis, and reporting. PM The sequence an alysis includes determination of viral phylogenetic lineage by comparison to the reference strain Wuhan-Hu-1, GenBank: [id number]. Sequence determination may not be possible owing [...] its performance characteristics determined by the [facility] Molecular Diagnostics Laboratory, which is certified under the Clinical Laboratory Improveme nt Amendments (C MARCO) as qualified to perform high complexity clinical laboratory testing. This test is validated for clinical use at [facility] and should not be regarded as investigational or for research. The FDA does not require this test to go through premarket FDA review, and therefore it has not been cleared or approved by the FDA. This report was reviewed and approved by the on-service pathologist. Ordering Provid er: JELANI SÁNCHEZ Report Released Date/Time: Dec 06, 2021 01:13 PM Reporting Lab: [facility] [address] [facility] [address] Performing Lab: [facility] [address] [facility] [address] SARS-CoV-2 CLADE() 22C (OMICRON) SARS-CoV-2 LINEAGE() BA.2.12.1 Dec 06, 2021 12:00 [facility] COVID-19 AG SCREEN Specimen Type: NASAL CAVITY PM [facility] PANEL BINAX(405) Comment: Testi ng Performed By: Mike Briscoe Ordering Provid er: JELANI SÁNCHEZ Report Released Date/Time: Dec 08, 2021 08:23 AM Reporting Lab: [facility] [address] [facility] [address] Performing Lab: [facility] [address] [facility] [address] COVID-19 AG SCRN(wrj BINAX) POSITIVE HH NE G Dec 06, 2021 12:00 PM [facility] TROPONIN II Sp ecimen Type: PLASMA Comment: Tests performed on Pham Spear Fisher (405) SN:[id number] Ordering Provid er: JELANI SÁNCHEZ Report Released Date/Time: Dec 06, 2021 11:57 AM Reporting Lab: [facility] [address] [facility] [address] Performing Lab: [facility] [address] [facility] [address] TROPONIN II 0.03 0.00-0.29 Dec 06, 2021 [place] P4 GLU,BUN,CREAT,LYTES,CA Speci men Type: PLASMA 12:00 PM [facility] Comment: Testin g Performed on Pham Spear Fisher (405) SN:[id number] Ordering Provid er: JELANI SÁNCHEZ Report Released Date/Time: Dec 06, 2021 11:57 AM Reporting Lab: [place] [facility] [address] [facility] [address] Performing Lab: [place] [facility] [address] [facility] [address] UREA NITROGEN 13 7-25 SODIUM 138 135-145 POTASSIUM 3.8 3.5-5.0 CHLORIDE 103 100-110 CARBON DIOXIDE 23 20-30 ANION GAP 12 4-16 GLUCOSE 105 H 65-100 CREATININE 0.90 0.5-1.5 CALCIUM 8.7 8.5-10.5 eGFR(CKD-EPI 2020) >90.0 >60 Dec 06, 2021 12:00 PM [facility] LIVER PROFILE Sp ecimen Type: PLASMA Comment: Testin g Performed on Pham Spear Fisher (405) SN:[id number] Ordering Provid er: JELANI SÁNCHEZ Report Released Date/Time: Dec 06, 2021 11:57 AM Reporting Lab: [facility] [address] [facility] [address] Performing Lab: [facility] [address] [facility] [address] PROTEIN, TOTAL 6.6 6.0-8.5 ALBUMIN 2.8 L 3.2-5.0 BILIRUBIN, TOTAL 0.6 0.2-1.2 ALKALINE PHOSPHATASE 134 40-150 ALT(SGPT) 13 7-52 AST(SGOT) 18 5-34 FIB-4 SCORE 1.94 <2.67 Dec 06, 2021 [facility] COVID-19+FLU/RSV DIAGNOSTIC Spe cimen Type: NASOPHARYNX 12:00 PM [facility] PANEL(405) Comment: Tests performed on Locally [employer]pert (405) Critical results called to and read back by: ALESHIA WILKINSON RN 12/06/21 @ 1312 Ordering Provid er: JELANI SÁNCHEZ Report Released Date/Time: Dec 06, 2021 11:57 AM Reporting Lab: [facility] [address] [facility] [address] Performing Lab: [facility] [address] [facility] [address] FLU A(PCR) NEGATIVE NEGATIVE FLU B(PCR) NEGATIVE NEGATIVE RSV(PCR) NEGATIVE NEGATIVE COVID-19([id number]) DETECTED HH NO T DETECTED Dec 06, 2021 12:00 PM [facility] BNP(P) Sp ecimen Type: PLASMA Comment: Tests performed on Pham Spear Fisher (405) SN:[id number] Ordering Provid er: JELANI SÁNCHEZ Report Released Date/Time: Dec 06, 2021 11:57 AM Reporting Lab: [facility] [address] [facility] [address] Performing Lab: [facility] [address] [facility] [address] BNP(P) 224.8 H 10-100 Dec 06, 2021 12:00 PM [facility] CBC PROFILE Sp ecimen Type: BLOOD No comment enter ed. Ordering Provid er: JELANI SÁNCHEZ Report Released Date/Time: Dec 06, 2021 11:57 AM Reporting Lab: [facility] [address] [facility] [address] Performing Lab: [facility] [address] [facility] [address] WBC 7.2 4.5-11.0 RBC 4.86 4.23-5.66 HGB [...] 2021 09:20 /min mm[Hg] RIVER PM [facility] Dec 13, 97.9 F 82 108/62 20 /min 96 % 2021 03:27 /min mm[Hg] RIVER PM [facility] Dec 13, 0 WHITE 2021 02:44 RIVER PM T [facility] Dec 13, 0 WHITE 2021 08:15 RIVER AM [facility] Dec 13, 0 WHITE 2021 05:18 RIVER AM [facility] Social History: [...] took place. Date/Time Smoking Status/Tobacco Use Comment [facility] Apr 01, 2020 01:16 PM QUIT [...] USE IN PAST YEAR [facility] Mar 16, 2016 12:50 PM V1-PT [...] W/WO CONTRAST: MARYELLEN LONG LUCAS LARES N [id number] -1950 [facility] Exm Date: DEC 13, 2021@12:57 Req Phys: ISATU TODD Loc: OP Unknown/0 12-15-2021@13:20 Img Loc: MRI IMAGING (OOS) Service: ZZGENERAL MEDICINE (Case [id number] COMPLETE) MRI ABDOMEN W/WO CONTRAST (M RI Detailed) CPT:45470 Reason for Study: further characterization of a [...] new lyphadenopathy REQUESTING MD: Isatu Todd PAGER: [phone] PHONE: [phone] Weight: 232.2 lb [105.32 kg] (12/12/2021 05:00) [...] patient will need to arrange for a fuel oil 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 to take him/her home after [...] 15, 2021 Date Verified: DEC 15, 2021 Nurse Executive E-Sig:/ES/MARYELLEN LONG Report: MRI ABDOMEN W/WO CONTRAST [...] MALIGNANCY Primary Interpreting Staff: Staff AMELIA THOMAS (Nurse Executive) / Dec 10, 2021 09:[address] ABDOMEN & PELVIS: RADIOLOGY,OUTSIDE [facility] LUCAS MEEK N [id number] -1950 M SERVICE [facility] Ex Date: DEC 10, 2021@09:30 Req Phys: ISATU TODD Loc: 1S MED/12-10@10:57 Img Loc: CT SCAN (OOS) Service: [facility] MEDICINE (Case [id number] COMPLETE) CT ABD & PELVIS WITHOUT CONT RAST (CT Detailed) CPT:16544 Reason for Study: 71 yo male with [...] INDEX - NO HEIGHTS FOUND Pager number: [phone] STAT orders MUST be call ed to RADIOLOGY [phone] to speak to the appropriate aircraft maintenance technician. Report Status: Verified Date Reported: DEC 10, 2021 Date Verified: DEC 10, 2021 Nurse Executive E-Sig: Report: EXAM: CT abdomen and pelvis [...] ph nodes. READING PHYSICIAN: Ramone Munoz D.O. -[phone] 12/10/2021 10:55 EDT [facility] National Teleradiology Program [phone] (For Medical Practitioner Use Only ) [address] [facility], [facility] [address] [place] [address] Attention Patients / Veterans: If you have ques tions or concerns about these test results, please contact your o rdering provider or primary care team. Primary Diagnostic Code: SIGNIFICANT ABNORMALIT Y, ATTN NEEDED Primary Interpreting Staff: RADIOLOGY,OUTSIDE SERVICE, Staff Physician / Dec 09, 2021 07:34 AM BASW (MODIFIED): JESSIE CHENEY TARA ER JCT LUCAS MEEK N [id number] -1950 M [facility] Exm Date: DEC 09, 2021@07:34 Req Phys: ISATU TODD Josseline Loc: 1S MED/12-09@11:26 Img Loc: XRAY (OOS) Service: [facility] MEDICINE (Case [id number] COMPLETE) BASW (MODIFIED) (RAD Detaile d) CPT:23390 Contrast Media : Barium Reason for Study: dysphagia ?esophageal spasm Clinical History: Report Status: Verified Date Reported: DEC 09, 2021 Date Verified: DEC 09, 2021 Nurse Executive E-Sig:/ES/JESSIE CHENEY Report: BASW (MODIFIED) , 12/09/2021 [...] REQUIRED Primary Interpreting Staff: JESSIE CHENEY, RADIOLOGIST (Nurse Executive) /TLC Dec 06, 2021 12:[address] CHEST (INCLUDES ADRENALS): [facility] LUCAS MEEK N [id number] -1950 M [facility] Exm Date: DEC 06, 2021@12:59 Req Phys: GONZALO,JELANI J Pat Loc: [facility] ED DAYS M 1RD (Req'g Loc) Img Loc: CT SCAN (OOS) Service: Unknown (Case [id number] COMPLETE) CT THORAX W/O CONT (CT Detai led) CPT:36248 Reason for Study: Opacification right chest Clinical History: No contrast allergy BUN: 13 (12/06/21 12:00) CREATI: 0.90 (12/06/21 12:00) eGFR 05/16/21 09:43 52 L Weight: 232.6 lb [105.51 kg] (12/06/2021 11:40) BODY MASS INDEX - NO HEIGHTS FOUND Pager number: [phone] STAT orders MUST be called t o RADIOLOGY [phone] to speak to the appropriate aircraft maintenance technician. Indications - Other: Opacification right chest, covid positive, lung cancer histo Report Status: Verified Date Reported: DEC 06, 2021 Date Verified: DEC 06, 2021 Nurse Executive E-Sig:/ES/JESSIE CHENEY Report: CT THORAX W/O CONT [...] REQUIRED Primary Interpreting Staff: JESSIE CHENEY, RADIOLOGIST (Nurse Executive) Primary Interpreting Resident: PRINCE CHAMPION, Resident /BR Dec 06, 2021 11:58 AM CHEST SINGLE VIEW: JESSIE CHENEY DOUGLAS N [id number] -1950 M [facility] Exm Date: DEC 06, 2021@11:58 Req Phys: JELANI SÁNCHEZ Pat Loc: [facility] ED DAYS M 1RD (Req'g Loc) Img Loc: XRAY (OOS) Service: Unknown (Case [id number] COMPLETE) CHEST SINGLE VIEW (RAD Detai led) CPT:72721 Proc Modifiers : PORTABLE EXAM Reason for Study: SOB, home covid test positive Clinical History: Report Status: Verified Date Reported: DEC 06, 2021 Date Verified: DEC 06, 2021 Nurse Executive E-Sig:/ES/JESSIE CHENEY Report: Exam type: Chest x-ray [...] REQUIRED Primary Interpreting Staff: JESSIE CHENEY, RADIOLOGIST (Nurse Executive) /TLC Pathology Reports: +/- 30 days of [...] MILLER LOCAL TITLE: LR SURGICAL PATHOLOGY REPORT [facility] STANDARD TITLE: PATHOLOGY REPORT DATE OF NOTE: JAN 03, 2022@10:28:01 ENTRY DATE: JAN 03, 2022@10:28:01 AUTHOR: NIURKA MILLER EXP COSIGNER: URGENCY: STATUS: COMPLETED $APHDR Reporting Lab: [facility] [CLIA# [id number]] [address] [place] [address] - - - - - - [...] automatically d ocumented from SURGERY package case #[id number] Field (#32) PRINCIPAL PRE-OP DIAGNOSIS, (#.72) OTHER [...] automatically d ocumented from SURGERY package case #[id number] Field (#34) PRINCIPAL POST-OP DIAG, (#.74) OTHER [...] Label: Lucas Meek Paperwork: Lucas Meek Cassette: [id number];..;KALYANI;.;405;[phone] Specimen is labeled: ES bx Received in formalin are several pieces of pale boyd and brown tissue, 1.2 x 0.7 cm in aggregate. Submitted entirely in 1 cassette [id number];..;KALYANI;.;405;[id number] SAW 12/15/2021 Microscopic exam: *+* MODIFIED REPORT *+* (Last modified: JAN 03, 2022@09:30:20 typed by NIURKA WADDELL) DIAGNOSIS: A. 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 Kendell long. TIARA Coombs was notified on 12/21/21. Modified on 01/03/22 to include report from [facility] stating that tumor is NEGATIVE for her2/ matheus amplification. The attending pathologist who signature mansoor ears on this report has reviewed all diagnostic slides and has edited t he gross and/or microscopic portion of this report in rendering the final pathologic diagnosis. [address] [address] CPT: 53470 /emely/ NIURKA Yeung MD Signed Jan 03, 2022@10:28 Performing Laboratory: Surgical Pathology Report Performed By: [facility] [CLIA# [id number]] [address] [place] [address] $FTR - - - - - [...] - - LUCAS MEEK STANDARD FORM 515 ID:[id number] SEX:M :1950 AGE: 71 LOC: [facility] END PCP: Isatu Todd /emely/ NIURKA MILLER Staff Signed: 01/03/2022 10:28 Dec 21, 2021 11:46 AM LR SURGICAL PATHOLOGY REPORT: STEFANY MILLER [facility] LOCAL TITLE: LR SURGICAL PATHOLOGY REPORT [facility] STANDARD TITLE: PATHOLOGY REPORT DATE OF NOTE: DEC 21, 2021@11:46:59 ENTRY DATE: DEC 21, 2021@11:46:59 AUTHOR: NIURKA MILLER EXP COSIGNER: URGENCY: STATUS: COMPLETED $APHDR Reporting Lab: [facility] [CLIA# [id number]] [address] [place] [address] - - - - - - [...] automatically d ocumented from SURGERY package case #[id number] Field (#32) PRINCIPAL PRE-OP DIAGNOSIS, (#.72) OTHER [...] automatically d ocumented from SURGERY package case #[id number] Field (#34) PRINCIPAL POST-OP DIAG, (#.74) OTHER [...] Label: Lucas Meek Paperwork: Lucas Meek Cassette: [id number];..;KALYANI;.;405;[phone] Specimen is labeled: ES bx Received in formalin are several pieces of pale boyd and brown tissue, 1.2 x 0.7 cm in aggregate. Submitted entirely in 1 cassette [id number];..;KALYANI;.;405;[id number] SAW 12/15/2021 Microscopic exam: DIAGNOSIS: A. 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 Kendell long. TIARA Coombs was notified on 12/21/21. The attending pathologist who signature mansoor ears on this report has reviewed all diagnostic slides and has edited t he gross and/or microscopic portion of this report in rendering the final pathologic diagnosis. [address] [address] CPT: 20226 /emely/ NIURKA Yeung MD Signed Dec 21, 2021@11:46 Performing Laboratory: Surgical Pathology Report Performed By: [facility] [CLIA# [id number]] [address] [place] [address] $FTR - - - - - - - - - - - - - - - - - - - - - - - - - - - - - - - - - - - - - - - - (End of report) NIUKRA MILLER MD Date Dec 20, 2021 - - - - - - - - - - - - - - - - - - - - - - - - - - - - - - - - - - - - - - - - LUCAS MEEK STANDARD FORM 515 ID:[id number] SEX:M :1950 AGE: 71 LOC: [facility] END PCP: Isatu Todd /charmaine Yeung MD Signed: 12/21/2021 11:46 Dec 06, 2021 03:30 PM LR MICROBIOLOGY REPORT: [facility] Reporting Lab: [facility] [CLIA# [id number]] [address] [place] [address] Accession [UID]: [id number] [[id number]] Receiv ed: Dec 06, 2021@16:14 Collection sample: BLOOD CUL T BOTTLE(NIRMAL/AERO)Collection date: Dec 06, 2021 15:30 Site/Specimen: BLOOD Provider: JELANI SÁNCHEZ Comment on specimen: LAC Test(s) ordered: BLOOD CULTURE ANAEROBI C....... completed: Dec 12, 2021 06:18 * BACTERIOLOGY FINAL REPORT => Dec 12, 2021 06:1 8 TECH CODE: [id number] Bacteriology Remark(s): NO GROWTH IN 5 DAYS =--=--=--=--=--=--=--=--=--=--=--=--=--= --=--=--=--=--=--=--=--=--=--=--=--=-- Performing Laboratory: Bacteriology Report Performed By: [facility] [CLIA# [id number]] [address] [place] [address] Dec 06, 2021 03:30 PM LR MICROBIOLOGY REPORT: [facility] Reporting Lab: [facility] [CLIA# [id number]] [address] [place] [address] Accession [UID]: [id number] [[id number]] Receiv ed: Dec 06, 2021@16:14 Collection sample: BLOOD CUL T BOTTLE(NIRMAL/AERO)Collection date: Dec 06, 2021 15:30 Site/Specimen: BLOOD Provider: JELANI SÁNCHEZ Comment on specimen: LAC Test(s) ordered: BLOOD CULTURE AEROBIC. ........ completed: Dec 12, 2021 06:17 * BACTERIOLOGY FINAL REPORT => Dec 12, 2021 06:1 7 TECH CODE: [id number] Bacteriology Remark(s): NO GROWTH IN 5 DAYS =--=--=--=--=--=--=--=--=--=--=--=--=--= --=--=--=--=--=--=--=--=--=--=--=--=-- Performing Laboratory: Bacteriology Report Performed By: [facility] [CLIA# [id number]] [address] [place] [address]
--- OUTSIDE RECORDS SUMMARY | 2022-01-19 08:44 | XMS_ITS ---
DAILY HOSPITALIZATION DATA [facility] Encounter Summary Created on:December 12, 2021 Patient:LUCAS MEEK Sex:Male :1950 Author Organization [facility] Address [address] [place] [id number] Support Name Relationship Address Phone YUSRA MEEK Unavailable [address] [place] [address] YUSRA MEEK Unavailable [address] [place] [facility] [place] [address] CLAY OMSLEY Unavailable Unavailable SJ SANTACRUZ Unavailable Unavailable Insurance [...] MEDICARE MEDICARE PART Jun 18, PART A [id number] DO KALYANI PATIENT (WNR) (M) A 2016 13A 1 [place] MEDICARE MEDICARE PART Jun 18, PART B [id number] DO KALYANI PATIENT (WNR) (M) B 2016 13A 1 [place] MEDICARE MEDICARE PART Jun 18, PART A [id number] KALYANIDO PATIENT (WNR) (M) A 2017 VH81 2 [place] MEDICARE MEDICARE PART Jun 18, PART B [id number] DO KALYANI PATIENT (WNR) (M) B 2017 VH81 2 [place] UNITED MEDICARE MCR(Jun 18 [id number] Luz MEEK PATIENT HEALTHCARE ADVANTAGE NR) 2021 37 0 [facility] (WNR) Selected Encounter This section includes the information on record at NM for the Encounter. Date/Time Encounter Type Encounter Description Reason Provider Source Dec 12, 2021 11:37 Inpatient Visit DAILY HOSPITALIZATION DATA PM E Encounter Template Text not used by NM Plan of Treatment: Future Appointments (+ 6 months) and Future Tests (+/- 45 days) The Plan of Treatment section includes future care activities for the patient from all NM treatmentfacilities. This section includes future appointments and future orders which are active, pending orscheduled.Future Appointments This section includes appointments that were scheduled to occur 6 months from the date of the Encounter, up to a maximum of 20 appointments. The data comes from all NM treatment facilities. Appointment Date/Time Appointment Type Appointment Facili ty Name Dec 21, 2021 08:00 AM AM[place] [facility] Jan 06, 2022 02:00 PM [place] [facility] Jan 10, 2022 11:30 AM [facility] - MEDICINE [facility] Jan 24, 2022 08:00 AM [place] [facility] Feb 21, 2022 10:00 AM [place] [facility] Mar 21, 2022 10:30 [...] the Encounter. The data comes from all [place] treatment [facility]. Test Date/Time Test Type Test Details Facility Name October 31, 2021 07:37 AM Consult Order [facility]UNITY CARE-EGD [facility] Cons Document Review Specialist's Choice November 15, 2021 10:37 AM Consult Order [facility] CARE-PODIATRY Cons Document Review Specialist's Choice Dec 06, 2021 12:52 PM [place]acy [place] Infusion Order [facility] Dec 06, 2021 03:24 PM [place]acy [place] [facility] [facility] Dec 06, 2021 03:40 PM [place]acy [place] [facility] [facility] Dec 15, 2021 08:41 AM Consult Order SPEECH PATHOLOGY [place] OUTPATIENT Cons [facility] Document Review Specialist's Choice Jan 15, 2022 10:08 PM Consult Order [facility] CARE-PALLIATIVE CARE Cons Document Review Specialist's Choice Lab Results: +/- 30 days [...] Reference Range Comment Dec 15, 2021 [place] P4 GLU,BUN,CREAT,LYTES,CA Speci men Type: PLASMA 06:43 AM [facility] Comment: Tests performed on Flickr (405) SN:[id number] Ordering Provid er: ISATU TODD Report Released Date/Time: Dec 11, 2021 07:42 AM Reporting Lab: [facility] T [facility] [address] [facility] [address] Performing Lab: [facility] [address] [facility] [address] UREA NITROGEN 9 7-25 SODIUM 137 135-145 [...] [facility] [address] [facility] [address] Performing Lab: [facility] [address] [facility] [address] WBC 5.7 4.5-11.0 RBC 4.22 L 4.23-5.66 [...] ABSOLUTE NRBC 0.00 0-0 Dec 14, 2021 [place] [facility] CYTOGENETIC Specimen Type: ESOPHAGUS 02:59 PM [facility] FISH([facility]) Comment: ~For T est: CYTOGENETIC FISH([facility]) ~FISH HER 2 NUE, FFPE See full report in Intelleflex Image display viewer/tab#LAB-Reference Ordering Provid er: NIURKA MILLER Report Released Date/Time: Dec 21, 2021 12:11 PM Reporting Lab: [facility] [address] [facility] [address] Performing Lab: [facility] CYTOGENETIC FISH([facility]) comment Dec 14, 2021 06:27 AM [facility] CBC PROFILE Sp ecimen Type: BLOOD No comment enter ed. Ordering Provid er: ISATU TODD Report Released Date/Time: Dec 10, 2021 07:22 AM Reporting Lab: [facility] [address] [facility] [address] Performing Lab: [facility] [address] [facility] [address] WBC 6.0 4.5-11.0 RBC 4.29 4.23-5.66 HGB [...] 0-0 Dec 14, [address] [facility] P4 GLU,BUN,CREAT,LYTES,CA Speci men Type: PLASMA 06:27 AM [facility] Comment: Tests performed on Flickr (405) SN:[id number] Ordering Provid er: ISATU TODD Report Released Date/Time: Dec 11, 2021 07:42 AM Reporting Lab: [facility] [address] [facility] [address] Performing Lab: [facility] [address] [facility] [address] UREA NITROGEN 10 7-25 SODIUM 137 135-145 POTASSIUM 4.0 3.5-5.0 CHLORIDE 104 100-110 CARBON DIOXIDE 25 20-30 ANION GAP 8 4-16 GLUCOSE 99 65-100 CREATININE 0.67 0.5-1.5 CALCIUM 8.2 L 8.5-10.5 eGFR(CKD-EPI 2020) >90.0 >60 Dec 13, 2021 [facility] P4 GLU,BUN,CREAT,LYTES,CA Speci men Type: PLASMA 06:34 AM [facility] Comment: Tests performed on Flickr (405) SN:[id number] Ordering Provid er: ISATU TODD Report Released Date/Time: Dec 11, 2021 07:42 AM Reporting Lab: [facility] [address] [facility] [address] Performing Lab: [facility] [address] [facility] [address] UREA NITROGEN 12 7-25 SODIUM 136 135-145 [...] Lab: [facility] [address] [facility] [address] Performing Lab: [facility] [address] [facility] [address] WBC 5.6 4.5-11.0 RBC 4.28 4.23-5.66 HGB [...] 0-0 Dec 12, [address] [facility] P4 GLU,BUN,CREAT,LYTES,CA Speci men Type: PLASMA 06:[address] [facility] Comment: Tests performed on Flickr (405) SN:[id number] Ordering Provid er: ISATU TODD Report Released Date/Time: Dec 11, 2021 07:42 AM Reporting Lab: [facility] [address] [facility] [address] Performing Lab: [facility] [address] [facility] [address] UREA NITROGEN 11 7-25 SODIUM 139 135-145 [...] Dec 10, 2021 07:22 AM Reporting Lab: [facility] [address] [facility] [address] Performing Lab: [facility] [address] [facility] [address] WBC 5.5 4.5-11.0 RBC 4.37 4.23-5.66 HGB [...] 0.00 0-0 Dec 12, 2021 06:00 AM SatomiT [facility] MAGNESIUM Sp ecimen Type: PLASMA Comment: Testin g Performed on Flickr (405) SN:[id number] Ordering Provid er: ISATU TODD Report Released Date/Time: Dec 12, 2021 08:24 AM Reporting Lab: [place] [facility]ter[facility]T [facility] [address] [facility] [address] Performing Lab: [place] SynterventionT AppEnsureMR[facility] [address] [facility] [address] MAGNESIUM 1.8 1.6-2.6 Dec 12, 2021 06:00 AM SatomiT AppEnsureMROC PHOSPHORUS Sp ecimen Type: PLASMA Comment: Testin g Performed on Flickr (405) SN:[id number] Ordering Provid er: ISATU TODD Report Released Date/Time: Dec 12, 2021 08:24 AM Reporting Lab: [place] [facility]ter[facility]T [facility] [address] [facility] [address] Performing Lab: [place] Synter[employer]T [facility]nsureMR[facility] [address] [facility] [address] PHOSPHORUS 3.1 2.5-5.0 Dec 11, 2021 06:15 AM [place] [facility]terventionT AppEnsureMROC ELECTROLYTES Sp ecimen Type: PLASMA Comment: Tests performed on Flickr (405) SN:[id number] Ordering Provid er: ISATU TODD Report Released Date/Time: Dec 10, 2021 07:22 AM Reporting Lab: [place] [facility]ter[facility]T [facility] [address] [facility] [address] Performing Lab: [place] [facility] [address] [facility] [address] SODIUM 137 135-145 POTASSIUM 4.3 3.5-5.0 CHLORIDE 108 100-110 CARBON DIOXIDE 20 20-30 ANION GAP 9 4-16 Dec 11, 2021 06:15 AM [place] [employer] CBC PROFILE Sp ecimen Type: BLOOD Comment: Result s checked Ordering Provid er: ISATU TODD Report Released Date/Time: Dec 10, 2021 07:22 AM Reporting Lab: [place] OMEGAT [facility] [address] [facility] [address] Performing Lab: [place] OMEGAT [facility] [address] [facility] [address] WBC 5.8 4.5-11.0 RBC 4.37 4.23-5.66 HGB [...] 0.00 0-0 Dec 11, 2021 06:00 AM [facility] PHOSPHORUS Sp ecimen Type: PLASMA Comment: Tests performed on Flickr (194) SN:[id number] Results checked Ordering Provid er: ISATU TODD Report Released Date/Time: Dec 11, 2021 07:44 AM Reporting Lab: [facility] [place] [facility] [address] [facility] [address] Performing Lab: [place] OMEGAT NMMROC [address] [facility] [address] PHOSPHORUS 3.0 2.5-5.0 Dec 10, 2021 08:05 AM [place] UREA NITROGEN Specimen Type: PLASMA [facility] Comment: [place] [id number] on Dec 10, 2021@08:31 Tests performed on Flickr (405) SN:[id number] Ordering Provid er: ISATU TODD Report Released Date/Time: Dec 10, 2021 07:22 AM Reporting Lab: [place] [facility] [address] [place] [facility] [place] [address] Performing Lab: [place] [facility] [address] [place] [facility] [place] [address] UREA NITROGEN 8 7-25 Dec 10, 2021 08:05 AM [place] [facility] MAGNESIUM Sp ecimen Type: PLASMA Comment: [place] [id number] on Dec 10, 2021@08:31 Tests performed on Flickr (405) SN:[id number] Ordering Provid er: ISATU TODD Report Released Date/Time: Dec 10, 2021 07:22 AM Reporting Lab: [place] [facility] [address] [place] [facility] [place] [address] Performing Lab: [place] [facility] [address] [place] [facility] [place] [address] MAGNESIUM 1.7 1.6-2.6 Dec 10, 2021 08:05 AM [place] [facility] GLUCOSE Sp ecimen Type: PLASMA Comment: [place] [id number] on Dec 10, 2021@08:31 Tests performed on Flickr (405) SN:[id number] Ordering Provid er: ISATU TODD Report Released Date/Time: Dec 10, 2021 07:22 AM Reporting Lab: [place] [facility] [address] [place] [facility] [place] [address] Performing Lab: [place] [facility] [address] [place] [facility] [place] [address] GLUCOSE 144 H 65-100 Dec 10, 2021 08:05 AM [place] [facility] CBC PROFILE Sp ecimen Type: BLOOD No comment enter ed. Ordering Provid er: ISATU TODD Report Released Date/Time: Dec 10, 2021 07:22 AM Reporting Lab: [place] [facility] [address] [place] [facility] [place] [address] Performing Lab: [place] [facility] [address] [place] [facility] [place] [address] WBC 7.0 4.5-11.0 RBC 4.54 4.23-5.66 HGB [...] 0.00 0-0 Dec 10, 2021 08:05 AM [facility] CALCIUM Sp ecimen Type: PLASMA Comment: [place] [id number] on Dec 10, 2021@08:31 Tests performed on Flickr (405) SN:[id number] Ordering Provid er: ISATU TODD Report Released Date/Time: Dec 10, 2021 07:22 AM Reporting Lab: [place] [facility] [address] [facility] [address] Performing Lab: [facility] [address] [facility] [address] CALCIUM 8.3 L 8.5-10.5 Dec 10, 2021 08:05 AM [place] [facility] PHOSPHORUS Sp ecimen Type: PLASMA Comment: [place] [id number] on Dec 10, 2021@08:31 Tests performed on Flickr (405) SN:[id number] Ordering Provid er: ISATU OTDD Report Released Date/Time: Dec 10, 2021 07:22 AM Reporting Lab: [place] [facility] [address] [facility] [address] Performing Lab: [place] [facility] [address] [facility] [address] PHOSPHORUS 1.8 L 2.5-5.0 Dec 10, 2021 08:05 AM [place] [facility] ELECTROLYTES Sp ecimen Type: PLASMA Comment: [place] [id number] on Dec 10, 2021@08:31 Tests performed on Flickr (405) SN:[id number] Ordering Provid er: ISATU TODD Report Released Date/Time: Dec 10, 2021 07:22 AM Reporting Lab: [place] [facility] [address] [facility] [address] Performing Lab: [place] [facility] [address] [facility] [address] SODIUM 139 135-145 POTASSIUM 3.7 3.5-5.0 CHLORIDE 107 100-110 CARBON DIOXIDE 24 20-30 ANION GAP 8 4-16 Dec 10, 2021 08:05 [place] CREATININE WITH eGFR Specime n Type: PLASMA AM [facility] PANEL Comment: [place] [id number] on Dec 10, 2021@08:31 Tests performed on [employer]am [employer]Dro[employer] (405) SN:[id number] Ordering Provid er: ISATU TODD Report Released Date/Time: Dec 10, 2021 07:22 AM Reporting Lab: [place] [facility] [address] [facility] [address] Performing Lab: [place] [facility] [address] [facility] [address] CREATININE 0.78 0.5-1.5 eGFR(CKD-EPI 2020) >90.0 >60 Dec 09, 2021 06:46 AM [place] [facility] MAGNESIUM Sp ecimen Type: PLASMA Comment: Tests performed on Pham [employer]Dro[employer] (405) SN:[id number] Ordering Provid er: ISATU TODD Report Released Date/Time: Dec 08, 2021 10:23 AM Reporting Lab: [place] [facility] [address] [facility] [address] Performing Lab: [place] [facility] [address] [facility] [address] MAGNESIUM 1.6 1.6-2.6 Dec 09, [address] [facility] P4 GLU,BUN,CREAT,LYTES,CA Speci men Type: PLASMA 06:[address] [facility] Comment: Tests performed on Flickr (405) SN:[id number] Ordering Provid er: ISATU TODD Report Released Date/Time: Dec 08, 2021 05:00 PM Reporting Lab: [facility] [address] [facility] [address] Performing Lab: [facility] [address] [facility] [address] UREA NITROGEN 6 L 7-25 SODIUM 134 [...] Lab: [facility] [address] [facility] [address] Performing Lab: [facility] [address] [facility] [address] WBC 7.1 4.5-11.0 RBC 4.40 4.23-5.66 HGB [...] 0.00 0-0 Dec 08, 2021 06:39 AM [place] [employer] T [facility] MAGNESIUM Sp ecimen Type: PLASMA Comment: Testin g Performed on Flickr (405) SN:[id number] Ordering Provid er: ISATU TODD Report Released Date/Time: Dec 07, 2021 10:32 AM Reporting Lab: [facility] [address] [facility] [address] Performing Lab: [facility] [address] [facility] [address] MAGNESIUM 1.5 L 1.6-2.6 Dec 08, 2021 [place] [employer] T P4 GLU,BUN,CREAT,LYTES,CA Speci men Type: PLASMA 06:39 AM [facility] Comment: Testin g Performed on Flickr (405) SN:[id number] Ordering Provid er: ISATU TODD Report Released Date/Time: Dec 07, 2021 10:32 AM Reporting Lab: [employer] T [facility] [address] [facility] [address] Performing Lab: [facility] [address] [facility] [address] UREA NITROGEN 6 L 7-25 SODIUM 136 135-145 POTASSIUM 3.3 L 3.5-5.0 CHLORIDE 104 100-110 CARBON DIOXIDE 22 20-30 ANION GAP 10 4-16 GLUCOSE 133 H 65-100 CREATININE 0.76 0.5-1.5 CALCIUM 8.4 L 8.5-10.5 eGFR(CKD-EPI 2020) >90.0 >60 Dec 08, 2021 06:39 AM [place] [employer] T [facility] CBC PROFILE Sp ecimen Type: BLOOD No comment enter ed. Ordering Provid er: ISATU TODD Report Released Date/Time: Dec 07, 2021 10:32 AM Reporting Lab: [facility] [address] [facility] [address] Performing Lab: [facility] [address] [facility] [address] WBC 8.4 4.5-11.0 RBC 4.75 4.23-5.66 HGB [...] 0-0 Dec 07, [address] [facility] P4 GLU,BUN,CREAT,LYTES,CA Speci men Type: PLASMA 06:[address] [facility] Comment: Tests performed on Flickr (405 SN:[id number] Ordering Provid er: PORFIRIO WALTERS Report Released Date/Time: Dec 06, 2021 06:57 PM Reporting Lab: [facility] [address] [facility] [address] Performing Lab: [facility] [address] [facility] [address] UREA NITROGEN 9 7-25 SODIUM 135 135-145 POTASSIUM 3.5 3.5-5.0 CHLORIDE 103 100-110 CARBON DIOXIDE 22 20-30 ANION GAP 10 4-16 GLUCOSE 92 65-100 CREATININE 0.73 0.5-1.5 CALCIUM 8.0 L 8.5-10.5 eGFR(CKD-EPI 2020) >90.0 >60 Dec 07, 2021 06:42 [place] LIVER PROFILE Specimen Typ e: PLASMA AM [facility] Comment: Tests performed on [employer] (405) SN:[id number] Ordering Provid er: PORFIRIO WALTERS Report Released Date/Time: Dec 06, 2021 06:57 PM Reporting Lab: [facility] [address] [facility] [address] Performing Lab: [facility] [address] [facility] [address] PROTEIN, TOTAL 5.7 L 6.0-8.5 ALBUMIN 2.4 L 3.2-5.0 BILIRUBIN, TOTAL 0.4 0.2-1.2 ALKALINE PHOSPHATASE 109 40-150 ALT(SGPT) 10 7-52 AST(SGOT) 15 5-34 FIB-4 SCORE 1.92 <2.67 Dec 07, 2021 06:42 AM [place] [facility] CBC PROFILE Specimen Type: BLOOD [facility] No comment enter ed. Ordering Provid er: PORFIRIO WALTERS Report Released Date/Time: Dec 06, 2021 06:57 PM Reporting Lab: [facility] [address] [facility] [address] Performing Lab: [facility] [address] [facility] [address] WBC 5.7 4.5-11.0 RBC 4.15 L 4.23-5.66 [...] [facility]AM[facility] %) AUTOMATED Comment: Tests performed on Flickr (405) SN:[id number] Ordering Provid er: ISATU TODD Report Released Date/Time: Dec 07, 2021 10:28 AM Reporting Lab: [place] [facility] [address] [facility] [address] Performing Lab: [place] [facility] [address] [facility] [address] RETICULOCYTES (%) AUTOMATED 1.23 0. 6-2.0 RETICULOCYTES (ABS) AUTOMATED 0.052 0.030-0.090 Dec 06, 2021 09:45 [place] MRSA SURVL NARES Specimen Ty pe: NARES PM [facility] DNA No comment enter ed. Ordering Provid er: ALVARO VARGHESE Report Released Date/Time: Dec 07, 2021 02:20 AM Reporting Lab: [place] [facility] [address] [facility] [address] Performing Lab: [place] [facility] [address] [facility] [address] MRSA SURVL NARES DNA NEGATIVE NEGATIVE Dec 06, 2021 06:00 [place] URINALYSIS W/REFLEX TO Speci men Type: URINE PM [facility] CULTURE No comment enter ed. Ordering Provid er: JELANI SÁNCHEZ Report Released Date/Time: Dec 06, 2021 11:57 AM Reporting Lab: [place] [facility] [address] [facility] [address] Performing Lab: [place] [facility] [address] [facility] [address] URINE COLOR Arlin YELLOW SPECIFIC GRAVITY 1.029 [...] 21, RIVER VARIANT Comment: https://www.cdc.gov/coronavirus/2019-ncov/cases-updates/variant- surveillance/variant-info.html The [place] SARS CoV 2 [employer] Research Assay-GX is a next-generation sequencing (NGS) assa 2021 [facility] SEQUENCING y that determine s the complete genome sequence of the SARS-CoV-2 virus. The assay contains variant-tolerant primers to broaden and improve the coverage for variant detection and increase the sensitivity 12:00 [facility] PNL(WH) of the panel to enable detection from lower viral titer samples. The assay is run on the [employer] Mobile Sequencer, which performs automated library preparation, sequencing, analysis, and reporting. PM The sequence an alysis includes determination of viral phylogenetic lineage by comparison to the reference strain Wuhan-Hu-1, GenBank: [id number]. Sequence determination may not be possible owing [...] Dec 06, 2021 01:13 PM Reporting Lab: [facility] [address] [facility] [address] Performing Lab: [facility] [address] [facility] [address] SARS-CoV-2 CLADE() 22C (OMICRON) SARS-CoV-2 LINEAGE() BA.2.12.1 Dec 06, 2021 12:00 [facility] COVID-19 AG SCREEN Specimen Type: NASAL CAVITY PM [facility] PANEL BINAX(405) Comment: Testi ng Performed By: Mike Briscoe Ordering Provid er: JELANI SÁNCHEZ Report Released Date/Time: Dec 08, 2021 08:23 AM Reporting Lab: [facility] [address] [facility] [address] Performing Lab: [facility] [address] [facility] [address] COVID-19 AG SCRN(wrj BINAX) POSITIVE HH NE G Dec 06, 2021 [facility] P4 GLU,BUN,CREAT,LYTES,CA Speci men Type: PLASMA 12:00 PM [facility] Comment: Testin g Performed on [employer] Superintendent (405) SN:[id number] Ordering Provid er: JELANI SÁNCHEZ Report Released Date/Time: Dec 06, 2021 11:57 AM Reporting Lab: [facility] [address] [facility] [address] Performing Lab: [facility] [address] [facility] [address] UREA NITROGEN 13 7-25 SODIUM 138 135-145 POTASSIUM 3.8 3.5-5.0 CHLORIDE 103 100-110 CARBON DIOXIDE 23 20-30 ANION GAP 12 4-16 GLUCOSE 105 H 65-100 CREATININE 0.90 0.5-1.5 CALCIUM 8.7 8.5-10.5 eGFR(CKD-EPI 2020) >90.0 >60 Dec 06, 2021 12:00 PM [facility] TROPONIN II Sp ecimen Type: PLASMA Comment: Tests performed on Ph[employer] Construction Superintendent (405) SN:[id number] Ordering Provid er: JELANI SÁNCHEZ Report Released Date/Time: Dec 06, 2021 11:57 AM Reporting Lab: [place] [facility] [address] [facility] [address] Performing Lab: [facility] [address] [facility] [address] TROPONIN II 0.03 0.00-0.29 Dec 06, 2021 12:00 PM [facility] LIVER PROFILE Sp ecimen Type: PLASMA Comment: Testin g Performed on [employer] Construction Superintendent (405) SN:[id number] Ordering Provid er: JELANI SÁNCHEZ Report Released Date/Time: Dec 06, 2021 11:57 AM Reporting Lab: [facility] [address] [facility] [address] Performing Lab: [facility] [address] [facility] [address] PROTEIN, TOTAL 6.6 6.0-8.5 ALBUMIN 2.8 L 3.2-5.0 BILIRUBIN, TOTAL 0.6 0.2-1.2 ALKALINE PHOSPHATASE 134 40-150 ALT(SGPT) 13 7-52 AST(SGOT) 18 5-34 FIB-4 SCORE 1.94 <2.67 Dec 06, 2021 12:00 PM [facility] BNP(P) Sp ecimen Type: PLASMA Comment: Tests performed on Pham Line Construction Superintendent (405) SN:[id number] Ordering Provid er: JELANI SÁNCHEZ Report Released Date/Time: Dec 06, 2021 11:57 AM Reporting Lab: [facility] [address] [facility] [address] Performing Lab: [facility] [address] [facility] [address] BNP(P) 224.8 H 10-100 Dec 06, 2021 [facility] COVID-19+FLU/RSV DIAGNOSTIC Spe cimen Type: NASOPHARYNX 12:00 PM [facility] PANEL(405) Comment: Tests performed on Blockchain Genexpert (405) Critical results called to and read back by: ALESHIA WILKINSON RN 12/06/21 @ 1312 Ordering Provid er: JELANI SÁNCHEZ Report Released Date/Time: Dec 06, 2021 11:57 AM Reporting Lab: [facility] [address] [facility] [address] Performing Lab: [facility] [address] [facility] [address] FLU A(PCR) NEGATIVE NEGATIVE FLU B(PCR) NEGATIVE NEGATIVE RSV(PCR) NEGATIVE NEGATIVE COVID-19(FEE-oij-DEXDIYDDA) DETECTED HH NO T DETECTED Dec 06, 2021 12:00 PM [facility] CBC PROFILE Sp ecimen Type: BLOOD No comment enter ed. Ordering Provid er: JELANI SÁNCHEZ Report Released Date/Time: Dec 06, 2021 11:57 AM Reporting Lab: [facility] [address] [facility] [address] Performing Lab: [facility] [address] [facility] [address] WBC 7.2 4.5-11.0 RBC 4.86 4.23-5.66 HGB [...] 2021 07:43 /min mm[Hg] RIVER PM [facility] Dec 12, 0 WHITE 2021 07:[address] [facility] Dec 12, 0 WHITE 2021 02:[address] [facility] Dec 12, 98 F 82 127/76 18 /min 97 % WHITE 2021 02:01 /min mm[Hg] RIVER PM [facility] Dec 12, 0 2021 10:59 RIVER AM [facility] Social History: Smoking Status (Most current) and Tobacco Use (All prior to encounter date) This section includes the most current, and the historical, smoking and tobacco-related health factors from the [place] facility where the Encounter took place.Current Smoking Status This section includes the most current smoking, or tobacco-related health factor, from the [place] facility where the Encounter took place. Date/Time Current Smoking Status Comment Facility Dec 06, 2021 11:40 AM QUIT TOBACCO USE > 7 YEARS AGO [facility] Tobacco Use History This section includes a history of the smoking, or tobacco- related health factors, that were collected on or before the date of the Encounter. The data comes from the [place] facility where the Encounter took place. Date/Time Smoking Status/Tobacco Use Comment [facility] Apr 01, 2020 01:16 PM QUIT TOBACCO USE 1-7 YEARS AGO [facility] Mar 24, 2020 03:00 PM QUIT TOBACCO USE 1-[facility] Feb 21, 2019 04:11 PM QUIT TOBACCO USE 1-7 YEARS AGO [facility] Feb 20, 2019 03:38 PM QUIT TOBACCO USE 1-7 YEARS AGO [facility] Feb 03, 2019 09:50 AM QUIT TOBACCO USE 1-7 YEARS AGO [facility] May 25, 2016 11:53 PM QUIT TOBACCO USE IN PAST YEAR [facility] May 23, 2016 06:57 PM QUIT TOBACCO USE > 7 YEARS AGO [facility] May 19, 2016 03:55 PM QUIT TOBACCO USE IN PAST YEAR [facility] May 19, 2016 10:29 AM QUIT TOBACCO USE 1-7 YEARS AGO [facility] May 01, 2016 07:26 PM QUIT TOBACCO USE IN PAST YEAR [facility] May 01, 2016 03:11 PM QUIT TOBACCO USE IN PAST YEAR [facility] May 01, 2016 11:19 AM QUIT TOBACCO USE IN PAST YEAR [facility] Mar 16, 2016 12:50 PM V1-PT DECLINES REF TO TOBACCO [facility] CESS PRGM Mar 16, 2016 12:50 PM V1-PT THINKING ABOUT QUIT [facility] TOBACCO USE Aug 12, 2015 08:48 AM CURRENT SMOKER [facility] Radiology Reports: +/- 30 days [...] the Encounter. The data comes from all [place] treatment facilities. Date/Time Radiology Report Provider Source Dec 13, 2021 12:57 PM MRI ABDOMEN W/WO CONTRAST: MARYELLEN LONG LUCAS LARES N [id number] -1950 [facility] Exm Date: DEC 13, 2021@12:57 Req Phys: ISATU TODD Loc: OP Unknown/0 12-15-2021@13:20 Img Loc: MRI IMAGING (OOS) Service: ZZGENERAL MEDICINE (Case [id number] COMPLETE) MRI ABDOMEN W/WO CONTRAST (M RI Detailed) CPT:17953 Reason for Study: further characterization of a [...] new lyphadenopathy REQUESTING MD: Isatu Todd PAGER: [phone] PHONE: [phone] Weight: 232.2 lb [105.32 kg] (12/12/2021 05:00) [...] patient will need to arrange for a driver/guide to take him/her home after the MRI [...] 15, 2021 Date Verified: DEC 15, 2021 Acid Maker E-Sig:/ES/MARYELLEN LONG Report: MRI ABDOMEN W/WO CONTRAST [...] MALIGNANCY Primary Interpreting Staff: MARYELLEN LONG Staff (Acid Maker) / Dec 10, 2021 09:[address] ABDOMEN & PELVIS: [facility]IDE [facility] BENITA MEEKLAS N [id number] -[address] [facility] Ex Date: DEC 10, 2021@09:30 Req Phys: ISATU TODD Loc: 1S MED/12-10@10:57 Img Loc: CT SCAN (OOS) Service: [facility] MEDICINE (Case [id number] COMPLETE) CT ABD & PELVIS WITHOUT CONT RAST (CT Detailed) CPT:37296 Reason for Study: 71 yo male with [...] INDEX - NO HEIGHTS FOUND Pager number: [phone] STAT orders MUST be call ed to RADIOLOGY [phone] to speak to the appropriate microbiology lab technician. Report Status: Verified Date Reported: DEC 10, 2021 Date Verified: DEC 10, 2021 Acid Maker E-Sig: Report: EXAM: CT abdomen and pelvis [...] ph nodes. READING PHYSICIAN: Ramone Munoz D.O. -[phone] 12/10/2021 10:55 EDT [facility] National Teleradiology Program [phone] (For Medical Practitioner Use Only ) [address] [facility], [facility] [address], [address] [place] [address] Attention Patients / Veterans: If you have ques tions or concerns about these test results, please contact your o rdering provider or primary care team. Primary Diagnostic Code: SIGNIFICANT ABNORMALIT Y, ATTN NEEDED Primary Interpreting Staff: RADIOLOGY,OUTSIDE SERVICE, Staff Physician / Dec 09, 2021 07:34 AM BASW (MODIFIED): JESSIE CHENEY TARA ER JCLUCAS LARES N [id number] -1950 M [facility] Exm Date: DEC 09, 2021@07:34 Req Phys: PEYTONISATU Manjarrez Loc: 1S MED/12-09@11:26 Img Loc: XRAY (OOS) Service: [facility] MEDICINE (Case [id number] COMPLETE) BASW (MODIFIED) (RAD Detaile d) CPT:22952 Contrast Media : Barium Reason for Study: dysphagia ?esophageal spasm Clinical History: Report Status: Verified Date Reported: DEC 09, 2021 Date Verified: DEC 09, 2021 Acid Maker E-Sig:/ES/JESSIE CHENEY Report: BASW (MODIFIED) , 12/09/2021 [...] REQUIRED Primary Interpreting Staff: JESSIE CHENEY, RADIOLOGIST (Acid Maker) /TLC Dec 06, 2021 12:[address] CHEST (INCLUDES ADRENALS): JESSIE CHENEY LUCAS LARES N [id number] -1950 M [facility] Exm Date: DEC 06, 2021@12:59 Req Phys: JELANI SÁNCHEZ Pat Loc: [facility] ED DAYS M 1RD (Req'g Loc) Img Loc: CT SCAN (OOS) Service: Unknown (Case [id number] COMPLETE) CT THORAX W/O CONT (CT Detai led) CPT:72250 Reason for Study: Opacification right chest Clinical History: No contrast allergy BUN: 13 (12/06/21 12:00) CREATI: 0.90 (12/06/21 12:00) eGFR 05/16/21 09:43 52 L Weight: 232.6 lb [105.51 kg] (12/06/2021 11:40) BODY MASS INDEX - NO HEIGHTS FOUND Pager number: [phone] STAT orders MUST be called t o RADIOLOGY [phone] to speak to the appropriate microbiology lab technician. Indications - Other: Opacification right chest, covid positive, lung cancer histo Report Status: Verified Date Reported: DEC 06, 2021 Date Verified: DEC 06, 2021 Acid Maker E-Sig:/ES/JESSIE CHENEY Report: CT THORAX W/O CONT [...] REQUIRED Primary Interpreting Staff: JESSIE CHENEY, RADIOLOGIST (Acid Maker) Primary Interpreting Resident: PRINCE CHAMPION, Resident /BR Dec 06, 2021 11:58 AM CHEST SINGLE VIEW: JESSIE CHENEY DOUGLAS N [id number] -1950 M [facility] Exm Date: DEC 06, 2021@11:58 Req Phys: GONZALO,JELANI Link Pat Loc: [facility] ED DAYS M 1RD (Req'g Loc) Img Loc: XRAY (OOS) Service: Unknown (Case [id number] COMPLETE) CHEST SINGLE VIEW (RAD Detai led) CPT:05191 Proc Modifiers : PORTABLE EXAM Reason for Study: SOB, home covid test positive Clinical History: Report Status: Verified Date Reported: DEC 06, 2021 Date Verified: DEC 06, 2021 Acid Maker E-Sig:/ES/JESSIE CHENEY Report: Exam type: Chest x-ray [...] REQUIRED Primary Interpreting Staff: JESSIE CHENEY, RADIOLOGIST (Acid Maker) /TLC Pathology Reports: +/- 30 days of [...] the Encounter. The data comes from all [place] treatment facilities. Date/Time Pathology Report Provider Source Jan 03, 2022 10:28 AM LR SURGICAL PATHOLOGY REPORT: STEFANY MILLER LOCAL TITLE: LR SURGICAL PATHOLOGY REPORT [facility] STANDARD TITLE: PATHOLOGY REPORT DATE OF NOTE: JAN 03, 2022@10:28:01 ENTRY DATE: JAN 03, 2022@10:28:01 AUTHOR: NIURKA MILLER EXP COSIGNER: URGENCY: STATUS: COMPLETED $APHDR Reporting Lab: [facility] [CLIA# [id number]] [address] [place] [address] - - - - - - [...] automatically d ocumented from SURGERY package case #[id number] Field (#32) PRINCIPAL PRE-OP DIAGNOSIS, (#.72) OTHER [...] automatically d ocumented from SURGERY package case #[id number] Field (#34) PRINCIPAL POST-OP DIAG, (#.74) OTHER [...] Label: Lucas Meek Paperwork: Lucas Meek Cassette: [id number];..;KALYANI;.;405;[phone] Specimen is labeled: ES bx Received in formalin are several pieces of pale boyd and brown tissue, 1.2 x 0.7 cm in aggregate. Submitted entirely in 1 cassette [id number];..;KALYANI;.;405;[phone] SAW 12/15/2021 Microscopic exam: *+* MODIFIED REPORT *+* (Last modified: JAN 03, 2022@09:30:20 typed by NIURKA WADDELL) DIAGNOSIS: A. 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 Kendell long. TIARA Coombs was notified on 12/21/21. Modified on 01/03/22 to include report from [facility] stating that tumor is NEGATIVE for her2/ matheus amplification. The attending pathologist who signature mansoor ears on this report has reviewed all diagnostic slides and has edited t he gross and/or microscopic portion of this report in rendering the final pathologic diagnosis. [address] [address] CPT: 04788 /emely/ NIURKA Yeung MD Signed Jan 03, 2022@10:28 Performing Laboratory: Surgical Pathology Report Performed By: [facility] [CLIA# [id number]] [address] [place] [address] $FTR - - - - - [...] - - LUCAS MEEK STANDARD FORM 515 ID:[id number] SEX:M :1950 AGE: 71 LOC: SDM END PCP: Isatu Todd /emely/ NIURKA MILLER Staff Signed: 01/03/2022 10:28 Dec 21, 2021 11:46 AM LR SURGICAL PATHOLOGY REPORT: STEFANY MILLER [facility] LOCAL TITLE: LR SURGICAL PATHOLOGY REPORT [facility] STANDARD TITLE: PATHOLOGY REPORT DATE OF NOTE: DEC 21, 2021@11:46:59 ENTRY DATE: DEC 21, 2021@11:46:59 AUTHOR: NIURKA MILLER EXP COSIGNER: URGENCY: STATUS: COMPLETED $APHDR Reporting Lab: [facility] [CLIA# [id number]] [address] [place] [address] - - - - - - [...] automatically d ocumented from SURGERY package case #[id number] Field (#32) PRINCIPAL PRE-OP DIAGNOSIS, (#.72) OTHER [...] automatically d ocumented from SURGERY package case #[id number] Field (#34) PRINCIPAL POST-OP DIAG, (#.74) OTHER [...] Label: Lucas Meek Paperwork: Lucas Meek Cassette: [id number];..;KALYANI;.;405;[id number] Specimen is labeled: ES bx Received in formalin are several pieces of pale boyd and brown tissue, 1.2 x 0.7 cm in aggregate. Submitted entirely in 1 cassette [id number];..;KALYANI;.;405;[id number] SAW 12/15/2021 Microscopic exam: DIAGNOSIS: A. 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 Kendell long. TIARA Coombs was notified on 12/21/21. The attending pathologist who signature mansoor ears on this report has reviewed all diagnostic slides and has edited t he gross and/or microscopic portion of this report in rendering the final pathologic diagnosis. [address] [address] CPT: 44343 /emely/ NIURKA Yeung MD Signed Dec 21, 2021@11:46 Performing Laboratory: Surgical Pathology Report Performed By: [facility] [CLIA# [id number]] [address] [place] [address] $FTR - - - - - [...] - - LUCAS MEEK STANDARD FORM 515 ID:[id number] SEX:M :1950 AGE: 71 LOC: SDM END PCP: Isatu Todd /charmaine Yeung MD Signed: 12/21/2021 11:46 Dec 06, 2021 03:30 PM LR MICROBIOLOGY REPORT: [facility] Reporting Lab: [facility] [CLIA# [id number]] [address] [place] [address] Accession [UID]: [id number] [[id number]] Receiv ed: Dec 06, 2021@16:14 Collection sample: BLOOD CUL T BOTTLE(NIRMAL/AERO)Collection date: Dec 06, 2021 15:30 Site/Specimen: BLOOD Provider: JELANI SÁNCHEZ Comment on specimen: LAC Test(s) ordered: BLOOD CULTURE ANAEROBI C....... completed: Dec 12, 2021 06:18 * BACTERIOLOGY FINAL REPORT => Dec 12, 2021 06:1 8 TECH CODE: 06146 Bacteriology Remark(s): NO GROWTH IN 5 DAYS =--=--=--=--=--=--=--=--=--=--=--=--=--= --=--=--=--=--=--=--=--=--=--=--=--=-- Performing Laboratory: Bacteriology Report Performed By: [facility] [CLIA# [id number]] [address] [place] [address] Dec 06, 2021 03:30 PM LR MICROBIOLOGY REPORT: [facility] Reporting Lab: [facility] [CLIA# [id number]] [address] [place] [address] Accession [UID]: [id number] [[id number]] Receiv ed: Dec 06, 2021@16:14 Collection sample: BLOOD CUL T BOTTLE(NIRMAL/AERO)Collection date: Dec 06, 2021 15:30 Site/Specimen: BLOOD Provider: JELANI SÁNCHEZ Comment on specimen: LAC Test(s) ordered: BLOOD CULTURE AEROBIC. ........ completed: Dec 12, 2021 06:17 * BACTERIOLOGY FINAL REPORT => Dec 12, 2021 06:1 7 TECH CODE: [id number] Bacteriology Remark(s): NO GROWTH IN 5 DAYS =--=--=--=--=--=--=--=--=--=--=--=--=--= --=--=--=--=--=--=--=--=--=--=--=--=-- Performing Laboratory: Bacteriology Report Performed By: [facility] [CLIA# [id number]] [address] [place] [address]
--- OUTSIDE RECORDS SUMMARY | 2022-01-19 08:45 | XMS_ITS ---
DAILY HOSPITALIZATION DATA [facility] Encounter Summary Created on:December 13, 2021 Patient:LUCAS MEEK Sex:Male :1950 Author Organization [facility] Address [address] [place] [id number] Support Name Relationship Address Phone YUSRA MEEK Unavailable [address] [place] [address] YUSRA MEEK Unavailable [address] [place] [facility] [place] [address] CLAY MOSLEY Unavailable Unavailable SJ SANTACRUZ Unavailable [...] MEDICARE MEDICARE PART Jun 18, PART A [id number] DO KALYANI PATIENT (WNR) (M) A 2016 13A 1 [place]AS MEDICARE MEDICARE PART Jun 18, PART B [id number] DO KALYANI PATIENT (WNR) (M) B 2017 13A 1 [place] MEDICARE MEDICARE PART Jun 18, PART B [id number] KALYANIDO PATIENT (WNR) (M) B 2017 VH81 2 [place] MEDICARE MEDICARE PART Jun 18, PART A [id number] DO KALYANI PATIENT (WNR) (M) A 2017 VH81 2 [place] UNITED MEDICARE MCR(W Jun 18 [id number] Luz MEEK PATIENT HEALTHCARE ADVANTAGE NR) 2021 37 0 [facility] (WNR) Selected Encounter This section includes the information on record at [place] for the Encounter. Date/Time Encounter Type Encounter Description Reason Provider Source Dec 13, 2021 05:16 Inpatient Visit DAILY HOSPITALIZATION DATA AM [facility] Encounter Template Text not used by [place] [...] AM AMBUL[place]ORY - NONE [place] [facility] Jan 06, 2022 02:00 PM [place] [facility] Jan 10, 2022 11:30 AM [facility] - MEDICINE [facility] Jan 24, 2022 08:00 AM [place] [facility] Feb 21, 2022 10:00 AM AMBUL[place]ORY - [place] [facility] [...] The data comes from all [place] treatment [facility]. Test Date/Time Test Type Test Details Facility Name October 31, 2021 07:37 AM Consult Order [facility]-EGD [facility] Cons Application Security Developer's Choice November 15, 2021 10:37 AM Consult Order [facility] CARE-PODIATRY Cons Application Security Developer's Choice Dec 06, 2021 12:52 PM Pharmacy - [place] Infusion Order [facility] Dec 06, 2021 03:24 PM Pharmacy - [place] [facility] Dec 06, 2021 03:40 PM Pharmacy - [place] Order [facility] Dec 15, 2021 08:41 AM Consult Order SPEECH PATHOLOGY [place] OUTPATIENT Cons [facility] Application Security Developer's Choice Jan 15, 2022 10:08 PM Consult Order [facility] CARE-PALLIATIVE CARE Cons Application Security Developer's Choice Lab Results: +/- 30 days of [...] Reference Range Comment Dec 15, 2021 [place] P4 GLU,BUN,CREAT,LYTES,CA Speci men Type: PLASMA 06:43 AM [facility] Comment: Tests performed on [place] (405) SN:[id number] Ordering Provid er: ISATU TODD Report Released Date/Time: Dec 11, 2021 07:42 AM Reporting Lab: [facility] T [facility] [address] [facility] [address] Performing Lab: [facility] [address] [facility] [address] UREA NITROGEN 9 7-25 SODIUM 137 135-145 POTASSIUM 3.8 3.5-5.0 CHLORIDE 105 100-110 CARBON DIOXIDE 26 20-30 ANION GAP 6 4-16 GLUCOSE 102 H 65-100 CREATININE 0.64 0.5-1.5 CALCIUM 8.1 L 8.5-10.5 eGFR(CKD-EPI 2020) >90.0 >60 Dec 15, 2021 06:43 AM [facility] CBC PROFILE Sp ecimen Type: BLOOD No comment enter ed. Ordering Provid er: ISATU TODD Report Released Date/Time: Dec 10, 2021 07:22 AM Reporting Lab: [facility] [address] [facility] [address] Performing Lab: [facility] [address] [facility] [address] WBC 5.7 4.5-11.0 RBC 4.22 L 4.23-5.66 [...] 2 NUE, FFPE See full report in Latio Image display viewer/tab#LAB-Reference Ordering Provid er: NIURKA MILLER Report Released Date/Time: Dec 21, 2021 12:11 PM Reporting Lab: [facility] [address] [facility] [address] Performing Lab: [facility] CYTOGENETIC FISH([facility]) comment Dec 14, 2021 [facility] P4 GLU,BUN,CREAT,LYTES,CA Speci men Type: PLASMA 06:27 AM [facility] Comment: Tests performed on [place] (405) SN:[id number] Ordering Provid er: ISATU TODD Report Released Date/Time: Dec 11, 2021 07:42 AM Reporting Lab: [facility] [address] [facility] [address] Performing Lab: [facility] [address] [facility] [address] UREA NITROGEN 10 7-25 SODIUM 137 135-145 [...] Lab: [facility] [address] [facility] [address] Performing Lab: [facility] [address] [facility] [address] WBC 6.0 4.5-11.0 RBC 4.29 4.23-5.66 HGB [...] GLU,BUN,CREAT,LYTES,CA Speci men Type: PLASMA 06:34 AM [facility] Comment: Tests performed on [place] (405) SN:[id number] Ordering Provid er: ISATU TODD Report Released Date/Time: Dec 11, 2021 07:42 AM Reporting Lab: [facility] [address] [facility] [address] Performing Lab: [facility] [address] [facility] [address] UREA NITROGEN 12 7-25 SODIUM 136 135-145 [...] Lab: [facility] [address] [facility] [address] Performing Lab: [facility] [address] [facility] [address] WBC 5.6 4.5-11.0 RBC 4.28 4.23-5.66 HGB [...] GLU,BUN,CREAT,LYTES,CA Speci men Type: PLASMA 06:21 AM [facility] Comment: Tests performed on [place] (405) SN:[id number] Ordering Provid er: ISATU TODD Report Released Date/Time: Dec 11, 2021 07:42 AM Reporting Lab: [facility] [address] [facility] [address] Performing Lab: [facility] [address] [facility] [address] UREA NITROGEN 11 7-25 SODIUM 139 135-145 [...] 10, 2021 07:22 AM Reporting Lab: [facility] [address] [facility] [address] Performing Lab: [facility] [address] [facility] [address] WBC 5.5 4.5-11.0 RBC 4.37 4.23-5.66 HGB [...] 0.00 0-0 Dec 12, 2021 06:00 AM [facility] MAGNESIUM Sp ecimen Type: PLASMA Comment: Testin g Performed on Club Point (405) SN:[id number] Ordering Provid er: ISATU TODD Report Released Date/Time: Dec 12, 2021 08:24 AM Reporting Lab: [place] [facility] BusT [facility] [address] [facility] [address] Performing Lab: [place] [facility] [address] [facility] [facility] [address] MAGNESIUM 1.8 1.6-2.6 Dec 12, 2021 06:00 AM Night[facility]wlT [facility] PHOSPHORUS Sp ecimen Type: PLASMA Comment: Testin g Performed on [place] (405) SN:[id number] Ordering Provid er: ISATU TODD Report Released Date/Time: Dec 12, 2021 08:24 AM Reporting Lab: [place] [facility] [address] [facility] [address] Performing Lab: [place] [employer] [address] [facility] [address] PHOSPHORUS 3.1 2.5-5.0 Dec 11, 2021 06:15 AM [place] [facility] ELECTROLYTES Sp ecimen Type: PLASMA Comment: Tests performed on [place] (405) SN:[id number] Ordering Provid er: ISATU TODD Report Released Date/Time: Dec 10, 2021 07:22 AM Reporting Lab: [place] [facility] [address] [facility] [address] Performing Lab: [place] [facility] [address] [facility] [address] SODIUM 137 135-145 POTASSIUM 4.3 3.5-5.0 CHLORIDE 108 100-110 CARBON DIOXIDE 20 20-30 ANION GAP 9 4-16 Dec 11, 2021 06:15 AM [place] [facility] CBC PROFILE Sp ecimen Type: BLOOD Comment: Result s checked Ordering Provid er: ISATU TODD Report Released Date/Time: Dec 10, 2021 07:22 AM Reporting Lab: [place] OMEGAT [facility] [address] [facility] [address] Performing Lab: [place] [facility]ME[place] [facility] [address] [facility] [address] WBC 5.8 4.5-11.0 RBC 4.37 4.23-5.66 HGB [...] 0-0 Dec 11, 2021 06:[address] [facility] PHOSPHORUS Sp ecimen Type: PLASMA Comment: Tests performed on [place] (645) SN:[id number] Results checked Ordering Provid er: ISATU TODD Report Released Date/Time: Dec 11, 2021 07:44 AM Reporting Lab: [facility] [facility] [address] [facility] [address] Performing Lab: [place] OMEGAT OK[facility]OC [address] [facility] [address] PHOSPHORUS 3.0 2.5-5.0 Dec 10, 2021 08:05 AM [place] [facility] MAGNESIUM Sp ecimen Type: PLASMA Comment: [place] [id number] on Dec 10, 2021@08:31 Tests performed on [place] (405) SN:[id number] Ordering Provid er: ISATU TODD Report Released Date/Time: Dec 10, 2021 07:22 AM Reporting Lab: [place] [facility] [address] [place] [facility] [place] [place] [place] [address] Performing Lab: [place] [facility] [address] [place] [facility] [place] [address] MAGNESIUM 1.7 1.6-2.6 Dec 10, 2021 08:05 AM [place] UREA NITROGEN Specimen Type: PLASMA [facility] Comment: [place] [id number] on Dec 10, 2021@08:31 Tests performed on [place] (405) SN:[id number] Ordering Provid er: ISATU TODD Report Released Date/Time: Dec 10, 2021 07:22 AM Reporting Lab: [place] [facility] [address] [place] [facility] [place] [address] Performing Lab: [place] [facility] [address] [place] [facility] [place] [address] UREA NITROGEN 8 7-25 Dec 10, 2021 08:05 AM [place] [facility] PHOSPHORUS Sp ecimen Type: PLASMA Comment: [place] [id number] on Dec 10, 2021@08:31 Tests performed on [place] (405) SN:[id number] Ordering Provid er: ISATU TODD Report Released Date/Time: Dec 10, 2021 07:22 AM Reporting Lab: [place] [facility] [address] [place] [facility] [place] [place] [address] Performing Lab: [place] [facility] [address] [place] [facility] [place] [address] PHOSPHORUS 1.8 L 2.5-5.0 Dec 10, 2021 08:05 AM [place] [facility] GLUCOSE Sp ecimen Type: PLASMA Comment: [place] [id number] on Dec 10, 2021@08:31 Tests performed on [place] (405) SN:[id number] Ordering Provid er: ISATU TODD Report Released Date/Time: Dec 10, 2021 07:22 AM Reporting Lab: [place] [facility] [address] [facility] [address] Performing Lab: [place] [facility] [address] [facility] [address] GLUCOSE 144 H 65-100 Dec 10, 2021 08:05 AM [place] [facility] ELECTROLYTES Sp ecimen Type: PLASMA Comment: [place] [id number] on Dec 10, 2021@08:31 Tests performed on Pham Kabbee (405) SN:[id number] Ordering Provid er: ISATU TODD Report Released Date/Time: Dec 10, 2021 07:22 AM Reporting Lab: [place] [facility] [address] [facility] [address] Performing Lab: [place] [facility] [address] [facility] [address] SODIUM 139 135-145 POTASSIUM 3.7 3.5-5.0 CHLORIDE 107 100-110 CARBON DIOXIDE 24 20-30 ANION GAP 8 4-16 Dec 10, 2021 08:05 AM [place] [facility] CALCIUM Sp ecimen Type: PLASMA Comment: [place] [id number] on Dec 10, 2021@08:31 Tests performed on Pham Kabbee (405) SN:[id number] Ordering Provid er: ISATU TODD Report Released Date/Time: Dec 10, 2021 07:22 AM Reporting Lab: [place] [facility] [address] [facility] [address] Performing Lab: [place] [facility] [address] [facility] [address] CALCIUM 8.3 L 8.5-10.5 Dec 10, 2021 08:05 [place] CREATININE WITH eGFR Specime n Type: PLASMA AM [facility] PANEL Comment: [place] [id number] on Dec 10, 2021@08:31 Tests performed on [place] (405) SN:[id number] Ordering Provid er: ISATU TODD Report Released Date/Time: Dec 10, 2021 07:22 AM Reporting Lab: [place] [facility] [address] [facility] [address] Performing Lab: [place] [facility] [address] [facility] [address] CREATININE 0.78 0.5-1.5 eGFR(CKD-EPI 2020) >90.0 >60 Dec 10, 2021 08:[address] [facility] CBC PROFILE Sp ecimen Type: BLOOD No comment enter ed. Ordering Provid er: ISATU TODD Report Released Date/Time: Dec 10, 2021 07:22 AM Reporting Lab: [place] [facility] [facility] [address] [facility] [address] Performing Lab: [place] OMEGAT [facility] [address] [facility] [address] WBC 7.0 4.5-11.0 RBC 4.54 4.23-5.66 HGB [...] 0.00 0-0 Dec 09, 2021 06:[address] [facility] MAGNESIUM Sp ecimen Type: PLASMA Comment: Tests performed on [place] (522) SN:[id number] Ordering Provid er: ISATU TODD Report Released Date/Time: Dec 08, 2021 10:23 AM Reporting Lab: [facility] [address] [facility] [address] Performing Lab: [facility] [address] [facility] [address] MAGNESIUM 1.6 1.6-2.6 Dec 09, 2021 06:[address] [facility] CBC PROFILE Sp ecimen Type: BLOOD No comment enter ed. Ordering Provid er: ISATU OTDD Report Released Date/Time: Dec 08, 2021 05:00 PM Reporting Lab: [facility] [address] [facility] [address] Performing Lab: [facility] [address] [facility] [address] WBC 7.1 4.5-11.0 RBC 4.40 4.23-5.66 HGB [...] ABSOLUTE NRBC 0.00 0-0 Dec 09, 2021 [facility] P4 GLU,BUN,CREAT,LYTES,CA Speci men Type: PLASMA 06:46 AM [facility] Comment: Tests performed on [place] (443) SN:[id number] Ordering Provid er: ISATU TODD Report Released Date/Time: Dec 08, 2021 05:00 PM Reporting Lab: [facility] [address] [facility] [address] Performing Lab: [place] [facility] [address] [facility] [address] UREA NITROGEN 6 L 7-25 SODIUM 134 L 135-145 POTASSIUM 3.7 3.5-5.0 CHLORIDE 103 100-110 CARBON DIOXIDE 23 20-30 ANION GAP 8 4-16 GLUCOSE 112 H 65-100 CREATININE 0.70 0.5-1.5 CALCIUM 8.1 L 8.5-10.5 eGFR(CKD-EPI 2020) >90.0 >60 Dec 08, 2021 06:[address] [facility] MAGNESIUM Sp ecimen Type: PLASMA Comment: Testin g Performed on Pham Clerk Stenographer (405) SN:[id number] Ordering Provid er: ISATU TODD Report Released Date/Time: Dec 07, 2021 10:32 AM Reporting Lab: [facility] [address] [facility] [address] Performing Lab: [facility] [address] [facility] [address] MAGNESIUM 1.5 L 1.6-2.6 Dec 08, 2021 [facility] P4 GLU,BUN,CREAT,LYTES,CA Speci men Type: PLASMA 06:39 AM [facility] Comment: Testin g Performed on [place] (405) SN:[id number] Ordering Provid er: ISATU TODD Report Released Date/Time: Dec 07, 2021 10:32 AM Reporting Lab: [facility] [address] [facility] [address] Performing Lab: [facility] [address] [facility] [address] UREA NITROGEN 6 L 7-25 SODIUM 136 135-145 POTASSIUM 3.3 L 3.5-5.0 CHLORIDE 104 100-110 CARBON DIOXIDE 22 20-30 ANION GAP 10 4-16 GLUCOSE 133 H 65-100 CREATININE 0.76 0.5-1.5 CALCIUM 8.4 L 8.5-10.5 eGFR(CKD-EPI 2020) >90.0 >60 Dec 08, 2021 06:39 AM [facility] CBC PROFILE Sp ecimen Type: BLOOD No comment enter ed. Ordering Provid er: ISATU TODD Report Released Date/Time: Dec 07, 2021 10:32 AM Reporting Lab: [facility] [address] [facility] [address] Performing Lab: [facility] [address] [facility] [address] WBC 8.4 4.5-11.0 RBC 4.75 4.23-5.66 HGB [...] GLU,BUN,CREAT,LYTES,CA Speci men Type: PLASMA 06:42 AM [facility] Comment: Tests performed on [place] (405 SN:[id number] Ordering Provid er: PORFIRIO WALTERS Report Released Date/Time: Dec 06, 2021 06:57 PM Reporting Lab: [facility] [address] [facility] [address] Performing Lab: [facility] [address] [facility] [address] UREA NITROGEN 9 7-25 SODIUM 135 135-145 POTASSIUM 3.5 3.5-5.0 CHLORIDE 103 100-110 CARBON DIOXIDE 22 20-30 ANION GAP 10 4-16 GLUCOSE 92 65-100 CREATININE 0.73 0.5-1.5 CALCIUM 8.0 L 8.5-10.5 eGFR(CKD-EPI 2020) >90.0 >60 Dec 07, 2021 06:42 [place] LIVER PROFILE Specimen Typ e: PLASMA AM [facility] Comment: Tests performed on Performa Sports Clerk Stenographer (405) SN:[id number] Ordering Provid er: PORFIRIO WALTERS Report Released Date/Time: Dec 06, 2021 06:57 PM Reporting Lab: [facility] [address] [facility] [address] Performing Lab: [facility] [address] [facility] [address] PROTEIN, TOTAL 5.7 L 6.0-8.5 ALBUMIN 2.4 L 3.2-5.0 BILIRUBIN, TOTAL 0.4 0.2-1.2 ALKALINE PHOSPHATASE 109 40-150 ALT(SGPT) 10 7-52 AST(SGOT) 15 5-34 FIB-4 SCORE 1.92 <2.67 Dec 07, 2021 06:42 AM [facility] CBC PROFILE Specimen Type: BLOOD [facility] No comment enter ed. Ordering Provid er: PORFIRIO WALTERS Report Released Date/Time: Dec 06, 2021 06:57 PM Reporting Lab: [facility] [address] [facility] [address] Performing Lab: [facility] [address] [facility] [facility] [address] WBC 5.7 4.5-11.0 RBC 4.15 L 4.23-5.66 [...] [facility] %) AUTOMATED Comment: Tests performed on [place] (405) SN:[id number] Ordering Provid er: ISATU TODD Report Released Date/Time: Dec 07, 2021 10:28 AM Reporting Lab: [place] [facility] [address] [facility] [address] Performing Lab: [place] [facility] [address] [facility] [address] RETICULOCYTES (%) AUTOMATED 1.23 0. 6-2.0 RETICULOCYTES (ABS) AUTOMATED 0.052 0.030-0.090 Dec 06, 2021 09:45 [place] MRSA SURVL NARES Specimen Ty pe: NARES PM [facility] DNA No comment enter ed. Ordering Provid er: ALVARO VARGHESE Report Released Date/Time: Dec 07, 2021 02:20 AM Reporting Lab: [place] [facility] [address] [facility] [address] Performing Lab: [place] [facility] [address] [facility] [address] MRSA SURVL NARES DNA NEGATIVE NEGATIVE Dec 06, 2021 06:00 [place] URINALYSIS W/REFLEX TO Speci men Type: URINE PM [facility] CULTURE No comment enter ed. Ordering Provid er: JELANI SÁNCHEZ Report Released Date/Time: Dec 06, 2021 11:57 AM Reporting Lab: [place] [facility] [address] [facility] [address] Performing Lab: [place] [facility] [address] [facility] [address] URINE COLOR Arlin YELLOW SPECIFIC GRAVITY 1.029 [...] 21, RIVER VARIANT Comment: https://www.cdc.gov/coronavirus/2019-ncov/cases-updates/variant- surveillance/variant-info.html The [employer] SARS CoV 2 [employer]ebes[employer] Research Assay-GX is a next-generation sequencing (NGS) assa 2021 [facility] SEQUENC[facility] y that determine s the complete genome sequence of the SARS-CoV-2 virus. The assay contains variant-tolerant primers to broaden and improve the coverage for variant detection and increase the sensitivity 12:00 [facility] PNL(WH) of the panel to enable detection from lower viral titer samples. The assay is run on the Jott Sequencer, which performs automated library preparation, sequencing, analysis, and reporting. PM The sequence an alysis includes determination of viral phylogenetic lineage by comparison to the reference strain Wuhan-Hu-1, GenBank: [id number]. Sequence determination may not be possible owing [...] and its performance characteristics determined by the [facility] Molecular Diagnostics Laboratory, which is certified under the Clinical Laboratory Improveme nt Amendments (C MARCO) as qualified to perform high complexity clinical laboratory testing. This test is validated for clinical use at [facility] and should not be regarded as investigational or for research. The FDA does not require this test to go through premarket FDA review, and therefore it has not been cleared or approved by the FDA. This report was reviewed and approved by the on-service pathologist. Ordering Provid er: JELANI SÁNCHEZ Report Released Date/Time: Dec 06, 2021 01:13 PM Reporting Lab: [facility] [address] [facility] [address] Performing Lab: [facility] [address] [facility] [address] SARS-CoV-2 CLADE() 22C (OMICRON) SARS-CoV-2 LINEAGE() BA.2.12.1 Dec 06, 2021 12:00 [facility] COVID-19 AG SCREEN Specimen Type: NASAL CAVITY PM [facility] PANEL BINAX(405) Comment: Testi ng Performed By: Mike Briscoe Ordering Provid er: JELANI SÁNCHEZ Report Released Date/Time: Dec 08, 2021 08:23 AM Reporting Lab: [facility] [address] [facility] [address] Performing Lab: [facility] [address] [facility] [address] COVID-19 AG SCRN(wrj BINAX) POSITIVE HH NE G Dec 06, 2021 12:[address] [facility] TROPONIN II Sp ecimen Type: PLASMA Comment: Tests performed on Pham Clerk Stenographer (405) SN:[id number] Ordering Provid er: JELANI SÁNCHEZ Report Released Date/Time: Dec 06, 2021 11:57 AM Reporting Lab: [facility] [address] [place] [facility] [place] [address] Performing Lab: [facility] [address] [facility] [address] TROPONIN II 0.03 0.00-0.29 Dec 06, 2021 12:[address] [facility] LIVER PROFILE Sp ecimen Type: PLASMA Comment: Testin g Performed on Pham Clerk Stenographer (405) SN:[id number] Ordering Provid er: JELANI SÁNCHEZ Report Released Date/Time: Dec 06, 2021 11:57 AM Reporting Lab: [facility] [address] [facility] [address] Performing Lab: [facility] [address] [facility] [address] PROTEIN, TOTAL 6.6 6.0-8.5 ALBUMIN 2.8 L 3.2-5.0 BILIRUBIN, TOTAL 0.6 0.2-1.2 ALKALINE PHOSPHATASE 134 40-150 ALT(SGPT) 13 7-52 AST(SGOT) 18 5-34 FIB-4 SCORE 1.94 <2.67 Dec 06, 2021 [place] P4 GLU,BUN,CREAT,LYTES,CA Speci men Type: PLASMA 12:00 PM [facility] Comment: Testin g Performed on Pham Clerk Stenographer (405) SN:[id number] Ordering Provid er: JELANI SÁNCHEZ Report Released Date/Time: Dec 06, 2021 11:57 AM Reporting Lab: [place] [facility] [address] [facility] [address] Performing Lab: [place] [facility] [address] [facility] [address] UREA NITROGEN 13 7-25 SODIUM 138 135-145 POTASSIUM 3.8 3.5-5.0 CHLORIDE 103 100-110 CARBON DIOXIDE 23 20-30 ANION GAP 12 4-16 GLUCOSE 105 H 65-100 CREATININE 0.90 0.5-1.5 CALCIUM 8.7 8.5-10.5 eGFR(CKD-EPI 2020) >90.0 >60 Dec 06, 2021 12:00 PM [facility] BNP(P) Sp ecimen Type: PLASMA Comment: Tests performed on Pham Clerk Stenographer (405) SN:[id number] Ordering Provid er: JELANI SÁNCHEZ Report Released Date/Time: Dec 06, 2021 11:57 AM Reporting Lab: [facility] [address] [facility] [address] Performing Lab: [facility] [address] [facility] [address] BNP(P) 224.8 H 10-100 Dec 06, 2021 [facility] [place] COVID-19+FLU/RSV DIAGNOSTIC Spe cimen Type: NASOPHARYNX 12:00 PM [facility] PANEL(405) Comment: Tests performed on [employer] (405) Critical results called to and read back by: ALESHIA WILKINSON RN 12/06/21 @ 1312 Ordering Provid er: JELANI SÁNCHEZ Report Released Date/Time: Dec 06, 2021 11:57 AM Reporting Lab: [facility] [address] [facility] [address] Performing Lab: [place] [facility] [address] [facility] [facility] [address] FLU A(PCR) NEGATIVE NEGATIVE FLU B(PCR) NEGATIVE NEGATIVE RSV(PCR) NEGATIVE NEGATIVE COVID-19([id number]) DETECTED HH NO T DETECTED Dec 06, 2021 12:00 PM [facility] Sp ecimen Type: BLOOD No comment enter ed. Ordering Provid er: JELANI SÁNCHEZ Report Released Date/Time: Dec 06, 2021 11:57 AM Reporting Lab: [facility] [address] [facility] [address] Performing Lab: [facility] [address] [facility] [address] WBC 7.2 4.5-11.0 RBC 4.86 4.23-5.66 HGB [...] WHITE 2021 09:20 /min mm[Hg] RIVER PM [facility] Dec 13, 97.9 F 82 108/62 20 /min 96 % 2021 03:27 /min mm[Hg] RIVER PM [facility] Dec 13, 0 WHITE 2021 02:44 RIVER PM T [facility] Dec 13, 0 WHITE 2021 08:15 RIVER AM [facility] Dec 13, 0 WHITE 2021 05:18 [facility] AM [facility] [facility] Social History: Smoking Status (Most current) [...] took place. Date/Time Smoking Status/Tobacco Use Comment [facility] Apr 01, 2020 01:16 PM QUIT [...] IN PAST YEAR CAREY DOYLE [facility] May 01, 2016 11:19 AM QUIT TOBACCO USE IN PAST YEAR CAREY DOYLE [facility] Mar 16, 2016 12:50 PM V1-PT DECLINES REF TO TOBACCO CAREY DOYLE [facility] CESS [facility] Mar 16, 2016 12:50 PM V1-PT THINKING ABOUT QUIT CAREY DOYLE [facility] TOBACCO USE Aug 12, 2015 08:48 AM CURRENT SMOKER CAREY Yates [facility] Radiology Reports: +/- 30 days of [...] W/WO CONTRAST: MARYELLEN LONG LUCAS LARES N [id number] -1950 [facility] Exm Date: DEC 13, 2021@12:57 Req Phys: ISATU TODD Loc: OP Unknown/0 12-15-2021@13:20 Img Loc: MRI IMAGING (OOS) Service: ZZGENERAL MEDICINE (Case [id number] COMPLETE) MRI ABDOMEN W/WO CONTRAST (M RI Detailed) CPT:76263 Reason for Study: further characterization of a [...] new lyphadenopathy REQUESTING MD: Isatu Todd PAGER: [phone] PHONE: [phone] Weight: 232.2 lb [105.32 kg] (12/12/2021 05:00) [...] patient will need to arrange for a transporter driver to take him/her home after the [...] 15, 2021 Date Verified: DEC 15, 2021 Program Support Clerk E-Sig:/ES/MARYELLEN LONG Report: MRI ABDOMEN W/WO CONTRAST [...] MALIGNANCY Primary Interpreting Staff: Staff AMELIA THOMAS (Program Support Clerk) / Dec 10, 2021 09:[address] ABDOMEN & PELVIS: [facility] L[facility]EEK N [id number] -1950 M [facility] Ex Date: DEC 10, 2021@09:30 Req Phys: ISATU TODD Loc: 1S MED/12-10@10:57 Img Loc: CT SCAN (OOS) Service: [facility] MEDICINE (Case [id number] COMPLETE) CT ABD & PELVIS WITHOUT CONT RAST (CT Detailed) CPT:19924 Reason for Study: 71 yo male with [...] INDEX - NO HEIGHTS FOUND Pager number: [phone] STAT orders MUST be call ed to RADIOLOGY [phone] to speak to the appropriate industrial ecology technician. Report Status: Verified Date Reported: DEC 10, 2021 Date Verified: DEC 10, 2021 Program Support Clerk E-Sig: Report: EXAM: CT abdomen and pelvis [...] ph nodes. READING PHYSICIAN: Ramone Munoz D.O. [phone] 12/10/2021 10:55 EDT [facility] National Teleradiology Program [phone] (For Medical Practitioner Use Only ) [address] [facility], [address] [facility] [address], [address] [place] [address] Attention Patients / Veterans: If you have ques tions or concerns about these test results, please contact your o rdering provider or primary care team. Primary Diagnostic Code: SIGNIFICANT ABNORMALIT Y, ATTN NEEDED Primary Interpreting Staff: RADIOLOGY,OUTSIDE SERVICE, Staff Physician / Dec 09, 2021 07:34 AM BASW (MODIFIED): JESSIE CHENEY TARA ER JCT LUCAS MEEK N [id number] -1950 [facility] Exm Date: DEC 09, 2021@07:34 Req Phys: ISATU TODD Josseline Loc: 1S MED/12-09@11:26 Img Loc: XRAY (OOS) Service: [facility] MEDICINE (Case [id number] COMPLETE) BASW (MODIFIED) (RAD Detaile d) CPT:55159 Contrast Media : Barium Reason for Study: dysphagia ?esophageal spasm Clinical History: Report Status: Verified Date Reported: DEC 09, 2021 Date Verified: DEC 09, 2021 Program Support Clerk E-Sig:/ES/JESSIE CHENEY Report: BASW (MODIFIED) , 12/09/2021 [...] REQUIRED Primary Interpreting Staff: JESSIE CHENEY, RADIOLOGIST (Program Support Clerk) /TLC Dec 06, 2021 12:[address] CHEST (INCLUDES ADRENALS): [facility] N [id number] -1950 [facility] Exm Date: DEC 06, 2021@12:59 Req Phys: GONZALO,JELANI J Pat Loc: [facility] ED DAYS M 1RD (Req'g Loc) Img Loc: CT SCAN (OOS) Service: Unknown (Case [id number] COMPLETE) CT THORAX W/O CONT (CT Detai led) CPT:93219 Reason for Study: Opacification right chest Clinical History: No contrast allergy BUN: 13 (12/06/21 12:00) CREATI: 0.90 (12/06/21 12:00) eGFR 05/16/21 09:43 52 L Weight: 232.6 lb [105.51 kg] (12/06/2021 11:40) BODY MASS INDEX - NO HEIGHTS FOUND Pager number: [phone] STAT orders MUST be called t o RADIOLOGY [phone] to speak to the appropriate industrial ecology technician. Indications - Other: Opacification right chest, covid positive, lung cancer histo Report Status: Verified Date Reported: DEC 06, 2021 Date Verified: DEC 06, 2021 Program Support Clerk E-Sig:/ES/JESSIE CHENEY Report: CT THORAX W/O CONT [...] REQUIRED Primary Interpreting Staff: JESSIE CHENEY, RADIOLOGIST (Program Support Clerk) Primary Interpreting Resident: PRINCE HCAMPION, Resident /BR Dec 06, 2021 11:58 AM CHEST SINGLE VIEW: JESSIE CHENEY DOUGLAS N [id number] -1950 M [facility] Exm Date: DEC 06, 2021@11:58 Req Phys: JELANI SÁNCHEZ Pat Loc: [facility] ED DAYS M 1RD (Req'g Loc) Img Loc: XRAY (OOS) Service: Unknown (Case [id number] COMPLETE) CHEST SINGLE VIEW (RAD Detai led) CPT:60353 Proc Modifiers : PORTABLE EXAM Reason for Study: SOB, home covid test positive Clinical History: Report Status: Verified Date Reported: DEC 06, 2021 Date Verified: DEC 06, 2021 Program Support Clerk E-Sig:/ES/JESSIE CHENEY Report: Exam type: Chest x-ray [...] REQUIRED Primary Interpreting Staff: JESSIE CHENEY, RADIOLOGIST (Program Support Clerk) /TLC Pathology Reports: +/- 30 days of [...] MILLER LOCAL TITLE: LR SURGICAL PATHOLOGY REPORT [facility] STANDARD TITLE: PATHOLOGY REPORT DATE OF NOTE: JAN 03, 2022@10:28:01 ENTRY DATE: JAN 03, 2022@10:28:01 AUTHOR: NIURKA MILLER EXP COSIGNER: URGENCY: STATUS: COMPLETED $APHDR Reporting Lab: [facility] [CLIA# [id number]] [address] [place] [address] - - - - - - [...] automatically d ocumented from SURGERY package case #[id number] Field (#32) PRINCIPAL PRE-OP DIAGNOSIS, (#.72) OTHER [...] automatically d ocumented from SURGERY package case #[id number] Field (#34) PRINCIPAL POST-OP DIAG, (#.74) OTHER [...] Label: Lucas Meek Paperwork: Lucas Meek Cassette: [id number];..;KALYANI;.;405;[phone] Specimen is labeled: ES bx Received in formalin are several pieces of pale boyd and brown tissue, 1.2 x 0.7 cm in aggregate. Submitted entirely in 1 cassette [id number];..;KALYANI;.;405;[id number] SAW 12/15/2021 Microscopic exam: *+* MODIFIED REPORT *+* (Last modified: JAN 03, 2022@09:30:20 typed by NIURKA WADDELL) DIAGNOSIS: A. 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 Kendell long. TIARA Coombs was notified on 12/21/21. Modified on 01/03/22 to include report from [facility] stating that tumor is NEGATIVE for her2/ matheus amplification. The attending pathologist who signature mansoor ears on this report has reviewed all diagnostic slides and has edited t he gross and/or microscopic portion of this report in rendering the final pathologic diagnosis. [address] [address] CPT: 67458 /emely/ NIURKA Yeung MD Signed Jan 03, 2022@10:28 Performing Laboratory: Surgical Pathology Report Performed By: [facility] [CLIA# [id number]] [address] [place] [address] $FTR - - - - - [...] - - LUCAS MEEK STANDARD FORM 515 ID:[id number] SEX:M :1950 AGE: 71 LOC: [facility] END PCP: Isatu Todd /emely/ NIURKA MILLER Staff Signed: 01/03/2022 10:28 Dec 21, 2021 11:46 AM LR SURGICAL PATHOLOGY REPORT: [facility] LOCAL TITLE: LR SURGICAL PATHOLOGY REPORT [facility] STANDARD TITLE: PATHOLOGY REPORT DATE OF NOTE: DEC 21, 2021@11:46:59 ENTRY DATE: DEC 21, 2021@11:46:59 AUTHOR: NIURKA MILLER EXP COSIGNER: URGENCY: STATUS: COMPLETED $APHDR Reporting Lab: [facility] [CLIA# [id number]] [address] [place] [address] - - - - - - [...] automatically d ocumented from SURGERY package case #[id number] Field (#32) PRINCIPAL PRE-OP DIAGNOSIS, (#.72) OTHER [...] automatically d ocumented from SURGERY package case #[id number] Field (#34) PRINCIPAL POST-OP DIAG, (#.74) OTHER [...] Label: Lucas Meek Paperwork: Lucas Meek Cassette: [id number];..;KALYANI;.;405;[id number] Specimen is labeled: ES bx Received in formalin are several pieces of pale boyd and brown tissue, 1.2 x 0.7 cm in aggregate. Submitted entirely in 1 cassette [id number];..;KALYANI;.;405;[id number] SAW 12/15/2021 Microscopic exam: DIAGNOSIS: A. 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 Kendell long. TIARA Coombs was notified on 12/21/21. The attending pathologist who signature mansoor ears on this report has reviewed all diagnostic slides and has edited t he gross and/or microscopic portion of this report in rendering the final pathologic diagnosis. [address] [address] CPT: 90862 /emely/ NIURKA Yeung MD Signed Dec 21, 2021@11:46 Performing Laboratory: Surgical Pathology Report Performed By: [facility] [CLIA# [id number]] [address] [place] [address] $FTR - - - - - [...] - - LUCAS MEEK STANDARD FORM 515 ID:[id number] SEX:M :1950 AGE: 71 LOC: [facility] END PCP: Isatu Todd /charmaine Yeung MD Signed: 12/21/2021 11:46 Dec 06, 2021 03:30 PM LR MICROBIOLOGY REPORT: [facility] Reporting Lab: [facility] [CLIA# [id number]] [address] [place] [address] Accession [UID]: [id number] [[id number]] Receiv ed: Dec 06, 2021@16:14 Collection sample: BLOOD CUL T BOTTLE(NIRMAL/AERO)Collection date: Dec 06, 2021 15:30 Site/Specimen: BLOOD Provider: JELANI SÁNCHEZ Comment on specimen: LAC Test(s) ordered: BLOOD CULTURE ANAEROBI C....... completed: Dec 12, 2021 06:18 * BACTERIOLOGY FINAL REPORT => Dec 12, 2021 06:1 8 TECH CODE: [id number] Bacteriology Remark(s): NO GROWTH IN 5 DAYS =--=--=--=--=--=--=--=--=--=--=--=--=--= --=--=--=--=--=--=--=--=--=--=--=--=-- Performing Laboratory: Bacteriology Report Performed By: [facility] [CLIA# [id number]] [address] [place] [address] Dec 06, 2021 03:30 PM LR MICROBIOLOGY REPORT: [facility] Reporting Lab: [facility] [CLIA# [id number]] [address] [place] [address] Accession [UID]: [id number] [[id number]] Receiv ed: Dec 06, 2021@16:14 Collection sample: BLOOD CUL T BOTTLE(NIRMAL/AERO)Collection date: Dec 06, 2021 15:30 Site/Specimen: BLOOD Provider: JELANI SÁNCHEZ Comment on specimen: LAC Test(s) ordered: BLOOD CULTURE AEROBIC. ........ completed: Dec 12, 2021 06:17 * BACTERIOLOGY FINAL REPORT => Dec 12, 2021 06:1 7 TECH CODE: [id number] Bacteriology Remark(s): NO GROWTH IN 5 DAYS =--=--=--=--=--=--=--=--=--=--=--=--=--= --=--=--=--=--=--=--=--=--=--=--=--=-- Performing Laboratory: Bacteriology Report Performed By: [facility] [CLIA# [id number]] [address] [place] [address]
--- OUTSIDE RECORDS SUMMARY | 2022-01-19 08:46 | XMS_ITS ---
DAILY HOSPITALIZATION DATA [facility] SAULT Encounter Summary Created on:December 13, 2021 Patient:LUCAS MEEK Sex:Male :1950 Author Organization [facility] Address [address] [place] [address] Support Name Relationship Address Phone YUSRA MEEK Unavailable [address] [place] [address] YUSRA MEEK Unavailable [address] [place] [facility] [place] [address] CLAY MOSLEY Unavailable Unavailable SJ SANTACRUZ Unavailable [...] MEDICARE MEDICARE PART Jun 18, PART A [id number] DO KALYANI PATIENT (WNR) (M) A 2016 13A 1 [facility] MEDICARE MEDICARE PART Jun 18, PART B [id number] DO KALYANI PATIENT (WNR) (M) B 2016 13A 1 [place] MEDICARE MEDICARE PART Jun 18, PART A [id number] KALYANIDO PATIENT (WNR) (M) A 2017 VH81 2 [place] MEDICARE MEDICARE PART Jun 18, PART B [id number] DO KALYANI PATIENT (WNR) (M) B 2017 VH81 2 [place] UNITED MEDICARE MCR(Jun [id number] Luz MEEK PATIENT HEALTHCARE ADVANTAGE NR) 2021 37 0 [facility] (WNR) Selected Encounter This section includes the information on record at [place] for the Encounter. Date/Time Encounter Type Encounter Description Reason Provider Source Dec 13, 2021 06:11 Inpatient Visit DAILY HOSPITALIZATION DATA [facility] Encounter Template Text not used by [...] 2022 10:00 AM AMBULATORY [place] [facility] Mar 21, 2022 10:30 AM [...] The data comes from all [place] treatment [facility]. Test Date/Time Test Type Test Details Facility Name October 31, 2021 07:37 AM Consult Order COMMUNITY CARE-EGD [facility] Cons [facility] November 15, 2021 10:37 AM Consult Order [facility] CARE-PODIATRY Cons [facility] Dec 06, 2021 12:52 PM Pharmacy [...] [place] OUTPATIENT Cons [facility] Jan 15, 2022 10:08 PM Consult Order [facility] CARE-PALLIATIVE CARE Cons [facility] Lab Results: +/- 30 days of [...] Reference Range Comment Dec 15, 2021 [place] P4 GLU,BUN,CREAT,LYTES,CA Speci men Type: PLASMA 06:43 AM [facility] Comment: Tests performed on ThePresent.Co (405) SN:[id number] Ordering Provid er: ISATU TODD Report Released Date/Time: Dec 11, 2021 07:42 AM Reporting Lab: [facility] [address] [facility] [address] Performing Lab: [facility] [address] [address] UREA NITROGEN 9 7-25 SODIUM 137 135-145 [...] DOYLE T [facility] [address] [facility] [address] Performing Lab: [facility] [address] [facility] [address] WBC 5.7 4.5-11.0 RBC 4.22 L 4.23-5.66 [...] ABSOLUTE NRBC 0.00 0-0 Dec 14, 2021 [facility] CYTOGENETIC Specimen Type: ESOPHAGUS 02:59 PM [facility]) Comment: ~For T est: CYTOGENETIC FISH([facility]) ~FISH HER 2 NUE, FFPE See full report in [employer] Image display viewer/tab#LAB-Reference Ordering Provid er: NIURKA MILLER Report Released Date/Time: Dec 21, 2021 12:11 PM Reporting Lab: [facility] [address] [address] Performing Lab: [facility] CYTOGENETIC FISH([facility]) comment Dec 14, 2021 [facility] P4 GLU,BUN,CREAT,LYTES,CA Speci men Type: PLASMA 06:27 AM [facility] Comment: Tests performed on ThePresent.Co (405) SN:[id number] Ordering Provid er: ISATU TODD Report Released Date/Time: Dec 11, 2021 07:42 AM Reporting Lab: [facility] [address] [facility] [facility] [address] Performing Lab: [facility] [address] [facility] [address] UREA NITROGEN 10 7-25 SODIUM 137 135-145 [...] 2021 07:22 AM Reporting [facility]: [facility] [address] [facility] [facility] [address] Performing Lab: [facility] [address] [facility] [facility] [address] WBC 6.0 4.5-11.0 RBC 4.29 4.23-5.66 HGB [...] 0.00 0-0 Dec 13, 2021 06:34 AM [facility] CBC PROFILE Sp ecimen Type: BLOOD No comment enter ed. Ordering Provid er: ISATU TODD Report Released Date/Time: Dec 10, 2021 07:22 AM Reporting Lab: [facility] [address] [address] Performing Lab: [facility] [address] [facility] [facility] [address] WBC 5.6 4.5-11.0 RBC 4.28 4.23-5.66 HGB [...] ABSOLUTE NRBC 0.00 0-0 Dec 13, 2021 [facility] P4 GLU,BUN,CREAT,LYTES,CA Speci men Type: PLASMA 06:34 AM [facility] Comment: Tests performed on ThePresent.Co (405) SN:[id number] Ordering Provid er: ISATU TODD Report Released Date/Time: Dec 11, 2021 07:42 AM Reporting Lab: [facility] [address] [facility] [facility] [address] Performing Lab: [facility] [address] [facility] [facility] [address] UREA NITROGEN 12 7-25 SODIUM 136 135-145 POTASSIUM 3.9 3.5-5.0 CHLORIDE 105 100-110 CARBON DIOXIDE 24 20-30 ANION GAP 7 4-16 GLUCOSE 102 H 65-100 CREATININE 0.66 0.5-1.5 CALCIUM 8.3 L 8.5-10.5 eGFR(CKD-EPI 2020) >90.0 >60 Dec 12, 2021 [facility] GLU,BUN,CREAT,LYTES,CA Speci men Type: PLASMA 06:21 AM [facility] Comment: Tests performed on ThePresent.Co (405) SN:[id number] Ordering Provid er: ISATU TODD Report Released Date/Time: Dec 11, 2021 07:42 AM Reporting Lab: [facility] [address] [facility] [address] Performing Lab: [facility] [address] [facility] [facility] [address] UREA NITROGEN 11 7-25 SODIUM 139 135-145 POTASSIUM 4.1 3.5-5.0 CHLORIDE 107 100-110 CARBON DIOXIDE 24 20-30 ANION GAP 8 4-16 GLUCOSE 110 H 65-100 CREATININE 0.70 0.5-1.5 CALCIUM 8.3 L 8.5-10.5 eGFR(CKD-EPI 2020) >90.0 >60 Dec 12, 2021 06:21 AM [facility] CBC PROFILE Sp ecimen Type: BLOOD No comment enter ed. Ordering Provid er: ISATU TODD Report Released Date/Time: Dec 10, 2021 07:22 AM Reporting Lab: [facility] [address] [facility] [address] Performing Lab: [facility] [address] [address] WBC 5.5 4.5-11.0 RBC 4.37 4.23-5.66 HGB [...] 0.00 0-0 Dec 12, 2021 06:00 AM [facility] MAGNESIUM Sp ecimen Type: PLASMA Comment: Testin g Performed on ThePresent.Co (405) SN:[id number] Ordering Provid er: ISATU TODD Report Released Date/Time: Dec 12, 2021 08:24 AM Reporting Lab: [place] [employer] [address] [address] Performing Lab: [place] [email or web address] [address] [address] MAGNESIUM 1.8 1.6-2.6 Dec 12, 2021 06:00 AM [email or web address] PHOSPHORUS Sp ecimen Type: PLASMA Comment: Testin g Performed on ThePresent.Co (405) SN:[id number] Ordering Provid er: ISATU TODD Report Released Date/Time: Dec 12, 2021 08:24 AM Reporting Lab: [place] [employer] [address] [address] Performing Lab: [place] [employer] [email or web address] [address] [address] PHOSPHORUS 3.1 2.5-5.0 Dec 11, 2021 06:15 AM [place] [employer] [email or web address] ELECTROLYTES Sp ecimen Type: PLASMA Comment: Tests performed on ThePresent.Co (405) SN:[id number] Ordering Provid er: ISATU TODD Report Released Date/Time: Dec 10, 2021 07:22 AM Reporting Lab: [place] [employer] [address] [facility] [address] Performing Lab: [place] [employer] [address] [address] SODIUM 137 135-145 POTASSIUM 4.3 3.5-5.0 CHLORIDE 108 100-110 CARBON DIOXIDE 20 20-30 ANION GAP 9 4-16 Dec 11, 2021 06:15 AM [facility] [facility] CBC PROFILE Sp ecimen Type: BLOOD Comment: Result s checked Ordering Provid er: ISATU TODD Report Released Date/Time: Dec 10, 2021 07:22 AM Reporting Lab: [place] [employer] [facility] [address] [facility] [address] Performing Lab: [place] [facility] [address] [address] WBC 5.8 4.5-11.0 RBC 4.37 4.23-5.66 HGB [...] ecimen Type: PLASMA Comment: Tests performed on ThePresent.Co (494) SN:[id number] Results checked Ordering Provid er: ISATU TODD Report Released Date/Time: Dec 11, 2021 07:44 AM Reporting Lab: [facility] [address] [facility] [facility] [address] Performing Lab: [place] [facility] [address] [address] PHOSPHORUS 3.0 2.5-5.0 Dec 10, 2021 08:05 AM [place] [facility] MAGNESIUM Sp ecimen Type: PLASMA Comment: [place] [id number] on Dec 10, 2021@08:31 Tests performed on ThePresent.Co (405) SN:[id number] Ordering Provid er: ISATU TODD Report Released Date/Time: Dec 10, 2021 07:22 AM Reporting Lab: [place] [facility] [address] [facility] [place] [address] Performing Lab: [place] [facility] [address] [facility] [place] [address] MAGNESIUM 1.7 1.6-2.6 Dec 10, 2021 08:05 AM [place] [facility] PHOSPHORUS Sp ecimen Type: PLASMA Comment: [place] [id number] on Dec 10, 2021@08:31 Tests performed on ThePresent.Co (405) SN:[id number] Ordering Provid er: ISATU TODD Report Released Date/Time: Dec 10, 2021 07:22 AM Reporting Lab: [place] [facility] [address] [facility] [place] [address] Performing Lab: [place] [facility] [address] [facility] [place] [address] PHOSPHORUS 1.8 L 2.5-5.0 Dec 10, 2021 08:05 AM [place] UREA NITROGEN Specimen Type: PLASMA [facility] Comment: [place] [id number] on Dec 10, 2021@08:31 Tests performed on ThePresent.Co (405) SN:[id number] Ordering Provid er: ISATU TODD Report Released Date/Time: Dec 10, 2021 07:22 AM Reporting Lab: [place] [facility] [address] [facility] [place] [address] Performing Lab: [place] [facility] [address] [facility] [place] [address] UREA NITROGEN 8 7-25 Dec 10, 2021 08:05 AM [place] [facility] GLUCOSE Sp ecimen Type: PLASMA Comment: [place] [id number] on Dec 10, 2021@08:31 Tests performed on ThePresent.Co (405) SN:[id number] Ordering Provid er: ISATU TODD Report Released Date/Time: Dec 10, 2021 07:22 AM Reporting Lab: [place] [facility] [address] [facility] [facility] [address] Performing Lab: [place] [facility] [address] [facility] [facility] [address] GLUCOSE 144 H 65-100 Dec 10, 2021 08:05 AM [place] [facility] CALCIUM Sp ecimen Type: PLASMA Comment: [place] [id number] on Dec 10, 2021@08:31 Tests performed on ThePresent.Co (405) SN:[id number] Ordering Provid er: ISATU TODD Report Released Date/Time: Dec 10, 2021 07:22 AM Reporting Lab: [place] [facility] [address] [facility] [address] Performing Lab: [place] [facility] [address] [facility] [facility] [address] CALCIUM 8.3 L 8.5-10.5 Dec 10, 2021 08:05 AM [place] [facility] ELECTROLYTES Sp ecimen Type: PLASMA Comment: [place] [id number] on Dec 10, 2021@08:31 Tests performed on ThePresent.Co (405) SN:[id number] Ordering Provid er: ISATU TODD Report Released Date/Time: Dec 10, 2021 07:22 AM Reporting Lab: [place] [facility] [address] [facility] [address] Performing Lab: [place] [facility] [address] [facility] [address] SODIUM 139 135-145 POTASSIUM 3.7 3.5-5.0 CHLORIDE 107 100-110 CARBON DIOXIDE 24 20-30 ANION GAP 8 4-16 Dec 10, 2021 08:05 AM [place] [facility] CBC PROFILE Sp ecimen Type: BLOOD No comment enter ed. Ordering Provid er: ISATU TODD Report Released Date/Time: Dec 10, 2021 07:22 AM Reporting Lab: [place] [facility] [address] [facility] [address] Performing Lab: [place] [facility] [address] [facility] [facility] [address] WBC 7.0 4.5-11.0 RBC 4.54 4.23-5.66 HGB [...] PLASMA AM [facility] PANEL [place]: [place] [id number] on Dec 10, 2021@08:31 Tests performed on ThePresent.Co (405) SN:[id number] Ordering Provid er: ISATU TODD Report Released Date/Time: Dec 10, 2021 07:22 AM Reporting Lab: [facility] [address] [facility] [address] Performing Lab: [facility] [address] [facility] [facility] [address] CREATININE 0.78 0.5-1.5 eGFR(CKD-EPI 2020) >90.0 >60 Dec 09, 2021 06:46 AM [place] [facility] MAGNESIUM Sp ecimen Type: PLASMA Comment: Tests performed on ThePresent.Co (405) SN:[id number] Ordering Provid er: ISATU TODD Report Released Date/Time: Dec 08, 2021 10:23 AM Reporting Lab: [place] [facility] [address] [facility] [facility] [address] Performing Lab: [place] [facility] [address] [facility] [facility] [address] MAGNESIUM 1.6 1.6-2.6 Dec 09, 2021 [facility] P4 GLU,BUN,CREAT,LYTES,CA Speci men Type: PLASMA 06:46 AM [facility] Comment: Tests performed on ThePresent.Co (405) SN:[id number] Ordering Provid er: ISATU TODD Report Released Date/Time: Dec 08, 2021 05:00 PM Reporting Lab: [facility] [address] [facility] [address] Performing Lab: [facility] [address] [facility] [address] UREA NITROGEN 6 L 7-25 SODIUM 134 [...] Reporting Lab: [facility] [address] [facility] [facility] [address] Performing Lab: [facility] [address] [facility] [address] WBC 7.1 4.5-11.0 RBC 4.40 4.23-5.66 HGB [...] 0-0 Dec 08, 2021 06:39 AM [facility] MAGNESIUM Sp ecimen Type: PLASMA Comment: Testin g Performed on ThePresent.Co (405) SN:[id number] Ordering Provid er: ISATU TODD Report Released Date/Time: Dec 07, 2021 10:32 AM Reporting Lab: [facility] [address] [facility] [facility] [address] Performing Lab: [facility] [address] [facility] [facility] [address] MAGNESIUM 1.5 L 1.6-2.6 Dec 08, 2021 06:39 AM [facility] CBC PROFILE Sp ecimen Type: BLOOD No comment enter ed. Ordering Provid er: ISATU TODD Report Released Date/Time: Dec 07, 2021 10:32 AM Reporting Lab: [facility] [address] [facility] [facility] [address] Performing Lab: [facility] [address] [facility] [address] WBC 8.4 4.5-11.0 RBC 4.75 4.23-5.66 HGB [...] ABSOLUTE NRBC 0.00 0-0 Dec 08, 2021 [facility] P4 GLU,BUN,CREAT,LYTES,CA Speci men Type: PLASMA 06:39 AM [facility] Comment: Testin g Performed on [employer] (405) SN:[id number] Ordering Provid er: ISATU TODD Report Released Date/Time: Dec 07, 2021 10:32 AM Reporting Lab: [facility] [address] [facility] [address] Performing Lab: [facility] [address] [facility] [address] UREA NITROGEN 6 L 7-25 SODIUM 136 135-145 POTASSIUM 3.3 L 3.5-5.0 CHLORIDE 104 100-110 CARBON DIOXIDE 22 20-30 ANION GAP 10 4-16 GLUCOSE 133 H 65-100 CREATININE 0.76 0.5-1.5 CALCIUM 8.4 L 8.5-10.5 eGFR(CKD-EPI 2020) >90.0 >60 Dec 07, 2021 [facility] P4 GLU,BUN,CREAT,LYTES,CA Speci men Type: PLASMA 06:42 AM [facility] Comment: Tests performed on [employer] (405) SN:[id number] Ordering Provid er: PORFIRIO WALTERS Report Released Date/Time: Dec 06, 2021 06:57 PM Reporting Lab: [place] [employer] [facility] [address] [facility] [facility] [address] Performing Lab: [facility] [address] [facility] [address] UREA NITROGEN 9 7-25 SODIUM 135 135-145 POTASSIUM 3.5 3.5-5.0 CHLORIDE 103 100-110 CARBON DIOXIDE 22 20-30 ANION GAP 10 4-16 GLUCOSE 92 65-100 CREATININE 0.73 0.5-1.5 CALCIUM 8.0 L 8.5-10.5 eGFR(CKD-EPI 2020) >90.0 >60 Dec 07, 2021 06:42 [place] LIVER PROFILE Specimen Typ e: PLASMA AM VAOC Comment: Tests performed on [employer] (405) SN:[id number] Ordering Provid er: PORFIRIO WALTERS Report Released Date/Time: Dec 06, 2021 06:57 PM Reporting Lab: [facility] [address] [facility] [address] Performing Lab: [facility] [address] [facility] [facility] [address] PROTEIN, TOTAL 5.7 L 6.0-8.5 ALBUMIN 2.4 L 3.2-5.0 BILIRUBIN, TOTAL 0.4 0.2-1.2 ALKALINE PHOSPHATASE 109 40-150 ALT(SGPT) 10 7-52 AST(SGOT) 15 5-34 FIB-4 SCORE 1.92 <2.67 Dec 07, 2021 06:42 AM [facility] CBC PROFILE Specimen Type: BLOOD [facility] No comment enter ed. Ordering Provid er: PORFIRIO WALTERS Report Released Date/Time: Dec 06, 2021 06:57 PM Reporting Lab: [facility] [address] [facility] [facility] [address] Performing Lab: [facility] [address] [facility] [address] WBC 5.7 4.5-11.0 RBC 4.15 L 4.23-5.66 [...] VAM[facility] %) AUTOMATED Comment: Tests performed on ThePresent.Co (405) SN:[id number] Ordering Provid er: ISATU TODD Report Released Date/Time: Dec 07, 2021 10:28 AM Reporting Lab: [place] [facility] [address] [facility] [address] Performing Lab: [place] [facility] [address] [facility] [address] RETICULOCYTES (%) AUTOMATED 1.23 0. 6-2.0 RETICULOCYTES (ABS) AUTOMATED 0.052 0.030-0.090 Dec 06, 2021 09:45 [place] MRSA SURVL NARES Specimen Ty pe: NARES PM [facility] DNA No comment enter ed. Ordering Provid er: ALVARO VARGHESE Report Released Date/Time: Dec 07, 2021 02:20 AM Reporting Lab: [place] [facility] [address] [facility] [address] Performing Lab: [place] [facility] [address] [facility] [address] MRSA SURVL NARES DNA NEGATIVE NEGATIVE Dec 06, 2021 06:00 [place] URINALYSIS W/REFLEX TO Speci men Type: URINE PM [facility] CULTURE No comment enter ed. Ordering Provid er: JELANI SÁNCHEZ Report Released Date/Time: Dec 06, 2021 11:57 AM Reporting Lab: [place] [facility] [address] [facility] [facility] [address] Performing Lab: [place] [facility] [address] [facility] [address] URINE COLOR Arlin YELLOW SPECIFIC GRAVITY 1.029 [...] 21, [place] VARIANT Comment: https://www.cdc.gov/coronavirus/2019-ncov/cases-updates/variant- surveillance/variant-info.html The ContaAzul SARS CoV 2 [employer] Assay-GX is a next-generation sequencing (NGS) assa 2021 [facility] SEQUENCING y that determine s the complete genome sequence of the SARS-CoV-2 virus. The assay contains variant-tolerant primers to broaden and improve the coverage for variant detection and increase the sensitivity 12:00 [facility] PNL(WH) of the panel to enable detection from lower viral titer samples. The assay is run on the [employer] Sequencer, which performs automated library preparation, sequencing, analysis, and reporting. PM The sequence an alysis includes determination of viral phylogenetic lineage by comparison to the reference strain Wuhan-Hu-1, GenBank: [id number]. Sequence determination may not be possible owing [...] its performance characteristics determined by the [facility] Molecular Diagnostics Laboratory, which is certified under the Clinical Laboratory Improveme nt Amendments (C MARCO) as qualified to perform high complexity clinical laboratory testing. This test is validated for clinical use at [facility] and should not be regarded [...] [facility] [address] [facility] [facility] [address] Performing Lab: [facility] [address] [facility] [address] SARS-CoV-2 CLADE() 22C (OMICRON) SARS-CoV-2 LINEAGE() BA.2.12.1 Dec 06, 2021 12:00 [facility] COVID-19 AG SCREEN Specimen Type: NASAL CAVITY PM [facility] PANEL BINAX(405) Comment: Testi ng Performed By: Mike Briscoe Ordering Provid er: JELANI SÁNCHEZ Report Released Date/Time: Dec 08, 2021 08:23 AM Reporting Lab: [facility] [address] [facility] [address] Performing [facility]: [facility] [address] [facility] [address] COVID-19 AG SCRN(wrj BINAX) POSITIVE HH NE G Dec 06, 2021 12:00 PM [facility] TROPONIN II Sp ecimen Type: PLASMA Comment: Tests performed on Pham Channel Man (405) SN:[id number] Ordering Provid er: JELANI SÁNCHEZ Report Released Date/Time: Dec 06, 2021 11:57 AM Reporting Lab: [facility] [address] [facility] [address] Performing Lab: [facility] [address] [facility] [address] TROPONIN II 0.03 0.00-0.29 Dec 06, 2021 [place] P4 GLU,BUN,CREAT,LYTES,CA Speci men Type: PLASMA 12:00 PM [facility] Comment: Testin g Performed on Pham [employer] Man (405) SN:[id number] Ordering Provid er: JELANI SÁNCHEZ Report Released Date/Time: Dec 06, 2021 11:57 AM Reporting Lab: [place] [facility] [address] [facility] [address] Performing Lab: [place] [facility] [address] [facility] [address] UREA NITROGEN 13 7-25 SODIUM 138 135-145 POTASSIUM 3.8 3.5-5.0 CHLORIDE 103 100-110 CARBON DIOXIDE 23 20-30 ANION GAP 12 4-16 GLUCOSE 105 H 65-100 CREATININE 0.90 0.5-1.5 CALCIUM 8.7 8.5-10.5 eGFR(CKD-EPI 2020) >90.0 >60 Dec 06, 2021 12:00 PM [facility] LIVER PROFILE Sp ecimen Type: PLASMA Comment: Testin g Performed on Pham [employer] Man (405) SN:[id number] Ordering Provid er: JELANI SÁNCHEZ Report Released Date/Time: Dec 06, 2021 11:57 AM Reporting Lab: [facility] [address] [facility] [address] Performing Lab: [facility] [address] [facility] [address] PROTEIN, TOTAL 6.6 6.0-8.5 ALBUMIN 2.8 L 3.2-5.0 BILIRUBIN, TOTAL 0.6 0.2-1.2 ALKALINE PHOSPHATASE 134 40-150 ALT(SGPT) 13 7-52 AST(SGOT) 18 5-34 FIB-4 SCORE 1.94 <2.67 Dec 06, 2021 12:00 PM [facility] BNP(P) Sp ecimen Type: PLASMA Comment: Tests performed on Pham Channel Man (405) SN:[id number] Ordering Provid er: JELANI SÁNCHEZ Report Released Date/Time: Dec 06, 2021 11:57 AM Reporting Lab: [facility] [address] [facility] [address] Performing [facility]: [facility] [address] [facility] [address] BNP(P) 224.8 H 10-100 Dec 06, 2021 [facility] COVID-19+FLU/RSV DIAGNOSTIC Spe cimen Type: NASOPHARYNX 12:00 PM [facility] PANEL(405) Comment: Tests performed on Mesh [place] Genexpert (405) Critical results called to and read back by: ALESHIA WILKINSON RN 12/06/21 @ 1312 Ordering Provid er: JELANI SÁNCHEZ Report Released Date/Time: Dec 06, 2021 11:57 AM Reporting Lab: [facility] [address] [facility] [address] Performing Lab: [place] [facility] [address] [facility] [address] FLU A(PCR) NEGATIVE NEGATIVE FLU B(PCR) NEGATIVE NEGATIVE RSV(PCR) NEGATIVE NEGATIVE COVID-19([id number]) DETECTED HH NO T DETECTED Dec 06, 2021 12:00 PM [facility] Sp ecimen Type: BLOOD No comment enter ed. Ordering Provid er: JELANI SÁNCHEZ Report Released Date/Time: Dec 06, 2021 11:57 AM Reporting Lab: [facility] [address] [address] Performing Lab: [facility] [address] [address] WBC 7.2 4.5-11.0 RBC 4.86 4.23-5.66 HGB [...] WHITE 2021 09:20 /min mm[Hg] [facility] PM [facility] Dec 13, 97.9 F 82 108/62 20 /min 96 % 2021 03:27 /min mm[Hg] [facility] PM [facility] Dec 13, 0 WHITE 2021 02:44 [facility] PM [facility] Dec 13, 0 WHITE 2021 08:15 [facility] Dec 13, 0 WHITE 2021 05:18 [facility] AM [facility] Social History: Smoking Status (Most current) and [...] took place. Date/Time Smoking Status/Tobacco Use Comment [facility] Apr 01, 2020 01:16 PM [...] PAST YEAR CAREY DOYLE [facility] May 01, 2016 11:19 AM QUIT TOBACCO USE IN PAST YEAR CAREY DOYLE [facility] Mar 16, 2016 12:50 PM V1-PT DECLINES REF TO TOBACCO CAREY DOYLE [facility] CESS PRGM Mar 16, 2016 12:50 PM V1-PT THINKING ABOUT QUIT CAREY DOYLE [facility] TOBACCO USE Aug 12, 2015 08:48 AM CURRENT SMOKER CAREY Yates [facility] Radiology Reports: +/- 30 days of the [...] PM MRI ABDOMEN W/WO CONTRAST: MARYELLEN LONG ULCAS LARES N [id number] [facility] [facility] Exm Date: DEC 13, 2021@12:57 Req Phys: ISATU TODD Loc: OP Unknown/0 12-15-2021@13:20 Img Loc: MRI IMAGING (OOS) Service: ZZGENERAL MEDICINE (Case [id number] COMPLETE) MRI ABDOMEN W/WO CONTRAST (M RI Detailed) CPT:82595 Reason for Study: further characterization of a [...] new lyphadenopathy REQUESTING MD: Isatu Todd PAGER: [phone] PHONE: [phone] Weight: 232.2 lb [105.32 kg] (12/12/2021 05:00) [...] 15, 2021 Date Verified: DEC 15, 2021 Cigar Packing Examiner E-Sig:/ES/MARYELLEN LONG Report: MRI ABDOMEN W/WO CONTRAST [...] MALIGNANCY Primary Interpreting Staff: Staff AMELIA THOMAS (Cigar Packing Examiner) / Dec 10, 2021 09:[address] ABDOMEN & PELVIS: [facility] N [id number] -1950 M [facility] Ex Date: DEC 10, 2021@09:30 Req Phys: ISATU TODD Loc: 1S MED/12-10@10:57 Img Loc: CT SCAN (OOS) Service: [facility] MEDICINE (Case [id number] COMPLETE) CT ABD & PELVIS WITHOUT CONT RAST (CT Detailed) CPT:62713 Reason for Study: 71 yo male with [...] INDEX - NO HEIGHTS FOUND Pager number: [phone] STAT orders MUST be call ed to RADIOLOGY [phone] to speak to the appropriate mobile lab technician. Report Status: Verified Date Reported: DEC 10, 2021 Date Verified: DEC 10, 2021 Cigar Packing Examiner E-Sig: Report: EXAM: CT abdomen and pelvis [...] ph nodes. READING PHYSICIAN: Ramone Munoz D.O. -[phone] [id number] 12/10/2021 10:55 EDT [facility] National Teleradiology [facility] [phone] (For Medical Practitioner Use Only ) [address] [facility], [facility] [address], [address] [place] [address] Attention Patients / Veterans: If you have ques tions or concerns about these test results, please contact your o rdering provider or primary care team. Primary Diagnostic Code: SIGNIFICANT ABNORMALIT Y, ATTN NEEDED Primary Interpreting Staff: RADIOLOGY,OUTSIDE SERVICE, Staff Physician / Dec 09, 2021 07:34 AM BASW (MODIFIED): JESSIE CHENEY TARA ER JCT LUCAS MEEK N [id number] -1950 [facility] Exm Date: DEC 09, 2021@07:34 Req Phys: ISATU TODD Josseline Loc: 1S MED/12-09@11:26 Img Loc: XRAY (OOS) Service: [facility] MEDICINE (Case [id number] COMPLETE) BASW (MODIFIED) (RAD Detaile d) CPT:82556 Contrast Media : Barium Reason for Study: dysphagia ?esophageal spasm Clinical History: Report Status: Verified Date Reported: DEC 09, 2021 Date Verified: DEC 09, 2021 Cigar Packing Examiner E-Sig:/ES/JESSIE CHENEY Report: BASW (MODIFIED) , 12/09/2021 [...] REQUIRED Primary Interpreting Staff: JESSIE CHENEY, RADIOLOGIST (Cigar Packing Examiner) /TLC Dec 06, 2021 12:[address] CHEST (INCLUDES ADRENALS): [facility]UCAS MEEK N [id number] -1950 [facility] Exm Date: DEC 06, 2021@12:59 Req Phys: GONZALO,JELANI J Pat Loc: [facility] ED DAYS M 1RD (Req'g Loc) Img Loc: CT SCAN (OOS) Service: Unknown (Case [id number] COMPLETE) CT THORAX W/O CONT (CT Detai led) CPT:73702 Reason for Study: Opacification right chest Clinical History: No contrast allergy BUN: 13 (12/06/21 12:00) CREATI: 0.90 (12/06/21 12:00) eGFR 05/16/21 09:43 52 L Weight: 232.6 lb [105.51 kg] (12/06/2021 11:40) BODY MASS INDEX - NO HEIGHTS FOUND Pager number: [phone] STAT orders MUST be called t o RADIOLOGY [phone] to speak to the appropriate mobile lab technician. Indications - Other: Opacification right chest, covid positive, lung cancer histo Report Status: Verified Date Reported: DEC 06, 2021 Date Verified: DEC 06, 2021 Cigar Packing Examiner E-Sig:/ES/JESSIE CHENEY Report: CT THORAX W/O CONT [...] REQUIRED Primary Interpreting Staff: JESSIE CHENEY, RADIOLOGIST (Cigar Packing Examiner) Primary Interpreting Resident: PRINCE CHAMPION, Resident /BR Dec 06, 2021 11:58 AM CHEST SINGLE VIEW: JESSIE CHENEY DOUGLAS N [id number] -1950 M [facility] Exm Date: DEC 06, 2021@11:58 Req Phys: JELANI SÁNCHEZ Pat Loc: [facility] ED DAYS M 1RD (Req'g Loc) Img Loc: XRAY (OOS) Service: Unknown (Case [id number] COMPLETE) CHEST SINGLE VIEW (RAD Detai led) CPT:81318 Proc Modifiers : PORTABLE EXAM Reason for Study: SOB, home covid test positive Clinical History: Report Status: Verified Date Reported: DEC 06, 2021 Date Verified: DEC 06, 2021 Cigar Packing Examiner E-Sig:/ES/JESSIE CHENEY Report: Exam type: Chest x-ray [...] REQUIRED Primary Interpreting Staff: JESSIE CHENEY, RADIOLOGIST (Cigar Packing Examiner) /TLC Pathology Reports: +/- 30 days of [...] MILLER LOCAL TITLE: LR SURGICAL PATHOLOGY REPORT [facility] STANDARD TITLE: PATHOLOGY REPORT DATE OF NOTE: JAN 03, 2022@10:28:01 ENTRY DATE: JAN 03, 2022@10:28:01 AUTHOR: NIURKA MILLER EXP COSIGNER: URGENCY: STATUS: COMPLETED $APHDR Reporting Lab: [facility] [CLIA# [id number]] [address] [place] [address] - - - - - - [...] automatically d ocumented from SURGERY package case #[id number] Field (#32) PRINCIPAL PRE-OP DIAGNOSIS, (#.72) OTHER [...] automatically d ocumented from SURGERY package case #[id number] Field (#34) PRINCIPAL POST-OP DIAG, (#.74) OTHER [...] Label: Lucas Meek Paperwork: Lucas Meek Cassette: [id number];..;KALYANI;.;405;[phone] Specimen is labeled: ES bx Received in formalin are several pieces of pale boyd and brown tissue, 1.2 x 0.7 cm in aggregate. Submitted entirely in 1 cassette [id number];..;KALYANI;.;405;[id number] SAW 12/15/2021 Microscopic exam: *+* MODIFIED REPORT [...] in rendering the final pathologic diagnosis. [address] [address] CPT: 60456 /emely/ NIURKA Yeung MD Signed Jan 03, 2022@10:28 Performing Laboratory: Surgical Pathology Report Performed By: [facility] [CLIA# [id number]] [address] [place] [address] $FTR - - - - - [...] - - LUCAS MEEK STANDARD FORM 515 ID:[id number] SEX:M :1950 AGE: 71 LOC: SDM END PCP: Isatu Todd /emely/ NIURKA MILLER Staff Signed: 01/03/2022 10:28 Dec 21, 2021 11:46 AM LR SURGICAL PATHOLOGY REPORT: STEFANY MILLER [facility] LOCAL TITLE: LR SURGICAL PATHOLOGY REPORT [facility] STANDARD TITLE: PATHOLOGY REPORT DATE OF NOTE: DEC 21, 2021@11:46:59 ENTRY DATE: DEC 21, 2021@11:46:59 AUTHOR: NIURKA MILLER EXP COSIGNER: URGENCY: STATUS: COMPLETED $APHDR Reporting Lab: [facility] [CLIA# [id number]] [address] [place] [address] - - - - - - [...] automatically d ocumented from SURGERY package case #[id number] Field (#32) PRINCIPAL PRE-OP DIAGNOSIS, (#.72) OTHER [...] automatically d ocumented from SURGERY package case #[id number] Field (#34) PRINCIPAL POST-OP DIAG, (#.74) OTHER [...] Label: Lucas Meek Paperwork: Lucas Meek Cassette: [id number];..;KALYANI;.;405;[id number] Specimen is labeled: ES bx Received in formalin are several pieces of pale boyd and brown tissue, 1.2 x 0.7 cm in aggregate. Submitted entirely in 1 cassette [id number];..;KALYANI;.;405;[id number] SAW 12/15/2021 Microscopic exam: DIAGNOSIS: A. 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 Kendell long. TIARA Coombs was notified on 12/21/21. The attending pathologist who signature mansoor ears on this report has reviewed all diagnostic slides and has edited t he gross and/or microscopic portion of this report in rendering the final pathologic diagnosis. [address] [address] CPT: 89293 /emely/ NIURKA Yeung MD Signed Dec 21, 2021@11:46 Performing Laboratory: Surgical Pathology Report Performed By: [facility] [CLIA# [id number]] [address] [place] [address] $FTR - - - - - [...] - - LUCAS MEEK STANDARD FORM 515 ID:[id number] SEX:M :1950 AGE: 71 LOC: [facility] END PCP: Isatu Todd /cahrmaine Yeung MD Signed: 12/21/2021 11:46 Dec 06, 2021 03:30 PM LR MICROBIOLOGY REPORT: [facility] Reporting Lab: [facility] [CLIA# [id number]] [address] [place] [address] Accession [UID]: [id number] [[id number]] Receiv ed: Dec 06, 2021@16:14 Collection sample: BLOOD CUL T BOTTLE(NIRMAL/AERO)Collection date: Dec 06, 2021 15:30 Site/Specimen: BLOOD Provider: JELANI SÁNCHEZ Comment on specimen: LAC Test(s) ordered: BLOOD CULTURE ANAEROBI C....... completed: Dec 12, 2021 06:18 * BACTERIOLOGY FINAL REPORT => Dec 12, 2021 06:1 8 TECH CODE: [id number] Bacteriology Remark(s): NO GROWTH IN 5 DAYS =--=--=--=--=--=--=--=--=--=--=--=--=--= --=--=--=--=--=--=--=--=--=--=--=--=-- Performing Laboratory: Bacteriology Report Performed By: [facility] [CLIA# [id number]] [address] [place] [address] Dec 06, 2021 03:30 PM LR MICROBIOLOGY REPORT: [facility] Reporting Lab: [facility] [CLIA# [id number]] [address] [place] [address] Accession [UID]: [id number] [[id number]] Receiv ed: Dec 06, 2021@16:14 Collection sample: BLOOD CUL T BOTTLE(NIRMAL/AERO)Collection date: Dec 06, 2021 15:30 Site/Specimen: BLOOD Provider: JELANI SÁNCHEZ Comment on specimen: LAC Test(s) ordered: BLOOD CULTURE AEROBIC. ........ completed: Dec 12, 2021 06:17 * BACTERIOLOGY FINAL REPORT => Dec 12, 2021 06:1 7 TECH CODE: [id number] Bacteriology Remark(s): NO GROWTH IN 5 DAYS =--=--=--=--=--=--=--=--=--=--=--=--=--= --=--=--=--=--=--=--=--=--=--=--=--=-- Performing Laboratory: Bacteriology Report Performed By: [facility] [CLIA# [id number]] [address] [place] [address]
--- OUTSIDE RECORDS SUMMARY | 2022-01-19 08:46 | XMS_ITS ---
DAILY HOSPITALIZATION DATA [facility] Encounter Summary Created on:December 13, 2021 Patient:LUCAS MEEK Sex:Male :1950 Author Organization [facility] Address [address] [place] [address] Support Name Relationship Address Phone YUSRA MEEK Unavailable [address] [place] [address] YUSRA MEEK Unavailable [address] [place] [facility] [place] [address] CLAY MOSLEY Unavailable Unavailable SJ SANTACRUZ Unavailable [...] MEDICARE MEDICARE PART Jun 18, PART A [id number] DO KALYANI PATIENT (WNR) (M) A 2016 13A 1 UGLAS MEDICARE MEDICARE PART Jun 18, PART B [id number] DO KALYANI PATIENT (WNR) (M) B 2017 13A 1 [place]AS MEDICARE MEDICARE PART Jun 18, PART B [id number] KALYANIDO PATIENT (WNR) (M) B 2017 VH81 2 U[place]AS MEDICARE MEDICARE PART Jun 18, PART A [id number] DO KALYANI PATIENT (WNR) (M) A 2017 VH81 2 U[place]AS UNITED MEDICARE MCR(W Jun 18 [id number] Luz MEEK PATIENT HEALTHCARE ADVANTAGE NR) 2021 37 0 [facility] (WNR) Selected Encounter This section includes the information on record at [place] for the Encounter. Date/Time Encounter Type Encounter Description Reason Provider Source Dec 13, 2021 08:15 Inpatient Visit DAILY HOSPITALIZATION DATA AM [facility] Encounter Template Text not used by [place] Plan of Treatment: Future Appointments (+ 6 [...] [place] [facility] Jan 10, 2022 11:30 AM AMBULATORY - MEDIC[facility] Jan 24, 2022 08:00 AM [place] [facility] Feb 21, 2022 10:00 AM [place]UL[place]ORY [place] [facility] Mar 21, 2022 10:30 AM AMBULATORY - MEDICINE [facility] Active, [...] The data comes from all [place] treatment [facility]. Test Date/Time Test Type Test Details Facility Name October 31, 2021 07:37 AM Consult Order [facility] [place] [facility] November 15, 2021 10:37 AM Consult Order [facility] C[facility] [place] [facility] Dec 06, 2021 12:52 PM Pharmacy - [place] Infusion Order [facility] Dec 06, 2021 03:24 PM Pharmacy - [place] Order [facility] Dec 06, 2021 03:40 PM Pharmacy - [place] Order [facility] Dec 15, 2021 08:41 AM Consult Order SPEECH PATHOLOGY [place] OUTPATIENT Cons [facility] Jan 15, 2022 10:08 PM Consult Order [facility] CARE-PALLIATIVE CARE Cons [place] [facility] Lab Results: +/- 30 days of [...] Reference Range Comment Dec 15, 2021 [place] P4 GLU,BUN,CREAT,LYTES,CA Speci men Type: PLASMA 06:43 AM [facility] [place] Comment: Tests performed on [employer] (405) SN:[id number] Ordering Provid er: ISATU TODD Report Released Date/Time: Dec 11, 2021 07:42 AM Reporting Lab: [facility] [address] [facility] [address] Performing Lab: [facility] [address] [facility] [address] UREA NITROGEN 9 7-25 SODIUM 137 135-145 POTASSIUM 3.8 3.5-5.0 CHLORIDE 105 100-110 CARBON DIOXIDE 26 20-30 ANION GAP 6 4-16 GLUCOSE 102 H 65-100 CREATININE 0.64 0.5-1.5 CALCIUM 8.1 L 8.5-10.5 eGFR(CKD-EPI 2020) >90.0 >60 Dec 15, 2021 06:43 AM [facility] CBC PROFILE Sp ecimen Type: BLOOD No comment enter ed. Ordering Provid er: ISATU TODD Report Released Date/Time: Dec 10, 2021 07:22 AM Reporting Lab: [facility] [address] [facility] [address] Performing Lab: [facility] [address] [facility] [address] WBC 5.7 4.5-11.0 RBC 4.22 L 4.23-5.66 [...] CYTOGENETIC Specimen Type: ESOPHAGUS 02:59 PM VAOC FISH([facility]) Comment: ~For T est: CYTOGENETIC FISH([facility]) ~FISH HER 2 NUE, FFPE See full report in [employer] System Image display viewer/tab#LAB-Reference Ordering Provid er: NIURKA MILLER Report Released Date/Time: Dec 21, 2021 12:11 PM Reporting Lab: [facility] [address] [facility] [address] Performing Lab: [facility] CYTOGENETIC FISH([facility]) comment Dec 14, 2021 [facility] P4 GLU,BUN,CREAT,LYTES,CA Speci men Type: PLASMA 06:27 AM [facility] Comment: Tests performed on [employer] (405) SN:[id number] Ordering Provid er: ISATU TODD Report Released Date/Time: Dec 11, 2021 07:42 AM Reporting Lab: [facility] [address] [facility] [address] Performing Lab: [facility] [address] [facility] [address] UREA NITROGEN 10 7-25 SODIUM 137 135-145 POTASSIUM 4.0 3.5-5.0 CHLORIDE 104 100-110 CARBON DIOXIDE 25 20-30 ANION GAP 8 4-16 GLUCOSE 99 65-100 CREATININE 0.67 0.5-1.5 CALCIUM 8.2 L 8.5-10.5 eGFR(CKD-EPI 2020) >90.0 >60 Dec 14, 2021 06:27 AM [facility] CBC PROFILE Sp ecimen Type: BLOOD No comment enter ed. Ordering Provid er: ISATU TODD Report Released Date/Time: Dec 10, 2021 07:22 AM Reporting Lab: [facility] [address] [facility] [address] Performing Lab: [facility] [address] [facility] [address] WBC 6.0 4.5-11.0 RBC 4.29 4.23-5.66 HGB [...] PLASMA 06:34 AM [facility] Comment: Tests performed on [employer] (405) SN:[id number] Ordering Provid er: ISATU TODD Report Released Date/Time: Dec 11, 2021 07:42 AM Reporting Lab: [facility] [address] [facility] [address] Performing Lab: [facility] [address] [facility] [address] UREA NITROGEN 12 7-25 SODIUM 136 135-145 [...] [facility] [address] [facility] [address] Performing Lab: [facility] [address] [facility] [address] WBC 5.6 4.5-11.0 RBC 4.28 4.23-5.66 HGB [...] PLASMA 06:21 AM [facility] Comment: Tests performed on [employer] (405) SN:[id number] Ordering Provid er: ISATU TODD Report Released Date/Time: Dec 11, 2021 07:42 AM Reporting Lab: [facility] [address] [facility] [address] Performing Lab: [facility] [address] [facility] [address] UREA NITROGEN 11 7-25 SODIUM 139 135-145 [...] Dec 10, 2021 07:22 AM Reporting Lab: [facility] [address] [facility] [address] Performing Lab: [facility] [address] [facility] [address] WBC 5.5 4.5-11.0 RBC 4.37 4.23-5.66 HGB [...] 0.00 0-0 Dec 12, 2021 06:00 AM [facility] MAGNESIUM Sp ecimen Type: PLASMA Comment: Testin g Performed on [employer] (405) SN:[id number] Ordering Provid er: ISATU TODD Report Released Date/Time: Dec 12, 2021 08:24 AM Reporting Lab: [place] [facility] [address] [facility] [address] Performing Lab: [place] [facility] [address] [facility] [address] MAGNESIUM 1.8 1.6-2.6 Dec 12, 2021 06:00 AM [facility] PHOSPHORUS Sp ecimen Type: PLASMA Comment: Testin g Performed on [employer] (405) SN:[id number] Ordering Provid er: ISATU TODD Report Released Date/Time: Dec 12, 2021 08:24 AM Reporting Lab: [place] [facility] [address] [facility] [address] Performing Lab: [place] [facility] [address] [facility] [address] PHOSPHORUS 3.1 2.5-5.0 Dec 11, 2021 06:15 AM [place] [facility] ELECTROLYTES Sp ecimen Type: PLASMA Comment: Tests performed on [employer] (405) SN:[id number] Ordering Provid er: ISATU TODD Report Released Date/Time: Dec 10, 2021 07:22 AM Reporting Lab: [place] [facility] [address] [facility] [address] Performing Lab: [place] [facility] [address] [facility] [address] SODIUM 137 135-145 POTASSIUM 4.3 3.5-5.0 CHLORIDE 108 100-110 CARBON DIOXIDE 20 20-30 ANION GAP 9 4-16 Dec 11, 2021 06:15 AM WHITE oomaT [facility] CBC PROFILE Sp ecimen Type: BLOOD Comment: Result s checked Ordering Provid er: ISATU TODD Report Released Date/Time: Dec 10, 2021 07:22 AM Reporting Lab: [place] [facility] [address] [facility] [address] Performing Lab: [facility] [facility] [address] [facility] [address] WBC 5.8 4.5-11.0 RBC 4.37 4.23-5.66 HGB [...] 0.00 0-0 Dec 11, 2021 06:00 AM [facility] PHOSPHORUS Sp ecimen Type: PLASMA Comment: Tests performed on [employer] (937) SN:[id number] Results checked Ordering Provid er: ISATU TODD Report Released Date/Time: Dec 11, 2021 07:44 AM Reporting Lab: [facility] [address] [facility] [address] Performing Lab: [place] [facility] [address] [facility] [address] PHOSPHORUS 3.0 2.5-5.0 Dec 10, 2021 08:05 AM [place] [facility] PHOSPHORUS Sp ecimen Type: PLASMA Comment: [place] [id number] on Dec 10, 2021@08:31 Tests performed on [employer] (405) SN:[id number] Ordering Provid er: ISATU TODD Report Released Date/Time: Dec 10, 2021 07:22 AM Reporting Lab: [place] [facility] [address] [place] [facility] [place] [place] [address] Performing Lab: [place] [facility] [address] [place] [facility] [place] [place] [address] PHOSPHORUS 1.8 L 2.5-5.0 Dec 10, 2021 08:05 AM [place] [facility] GLUCOSE Sp ecimen Type: PLASMA Comment: [place] [id number] on Dec 10, 2021@08:31 Tests performed on [employer] (405) SN:[id number] Ordering Provid er: ISATU TODD Report Released Date/Time: Dec 10, 2021 07:22 AM Reporting Lab: [place] [facility] [address] [place] [facility] [place] [place] [address] Performing Lab: [place] [facility] [address] [place] [facility] [place] [address] GLUCOSE 144 H 65-100 Dec 10, 2021 08:05 AM [place] UREA NITROGEN Specimen Type: PLASMA [facility] Comment: [place] [id number] on Dec 10, 2021@08:31 Tests performed on [employer] (405) SN:[id number] Ordering Provid er: ISATU TODD Report Released Date/Time: Dec 10, 2021 07:22 AM Reporting Lab: [place] [facility] [address] [place] [facility] [place] [address] Performing Lab: [place] [facility] [address] [place] [facility] [place] [address] UREA NITROGEN 8 7-25 Dec 10, 2021 08:05 AM [place] [facility] MAGNESIUM Sp ecimen Type: PLASMA Comment: [place] [id number] on Dec 10, 2021@08:31 Tests performed on [employer] (405) SN:[id number] Ordering Provid er: ISATU TODD Report Released Date/Time: Dec 10, 2021 07:22 AM Reporting Lab: [place] [facility] [address] [place] [facility] [place] [address] Performing Lab: [place] [facility] [address] [facility] [address] MAGNESIUM 1.7 1.6-2.6 Dec 10, 2021 08:05 AM [place] [facility] ELECTROLYTES Sp ecimen Type: PLASMA Comment: [place] [id number] on Dec 10, 2021@08:31 Tests performed on [employer] (405) SN:[id number] Ordering Provid er: ISATU TODD Report Released Date/Time: Dec 10, 2021 07:22 AM Reporting Lab: [place] [facility] [address] [facility] [address] Performing Lab: [place] [facility] [address] [facility] [address] SODIUM 139 135-145 POTASSIUM 3.7 3.5-5.0 CHLORIDE 107 100-110 CARBON DIOXIDE 24 20-30 ANION GAP 8 4-16 Dec 10, 2021 08:05 AM [place] [facility] CALCIUM Sp ecimen Type: PLASMA Comment: [place] [id number] on Dec 10, 2021@08:31 Tests performed on [employer] (405) SN:[id number] Ordering Provid er: ISATU TODD Report Released Date/Time: Dec 10, 2021 07:22 AM Reporting Lab: [place] [facility] [address] [facility] [address] Performing Lab: [place] [facility] [address] [facility] [address] CALCIUM 8.3 L 8.5-10.5 Dec 10, 2021 08:05 [place] CREATININE WITH eGFR Specime n Type: PLASMA AM [facility] PANEL Comment: [place] [id number] on Dec 10, 2021@08:31 Tests performed on [employer] (405) SN:[id number] Ordering Provid er: ISATU TODD Report Released Date/Time: Dec 10, 2021 07:22 AM Reporting Lab: [place] [facility] [address] [facility] [address] Performing Lab: [place] [facility] [address] [facility] [address] CREATININE 0.78 0.5-1.5 eGFR(CKD-EPI 2020) >90.0 >60 Dec 10, 2021 08:05 AM [facility] CBC PROFILE Sp ecimen Type: BLOOD No comment enter ed. Ordering Provid er: ISATU TODD Report Released Date/Time: Dec 10, 2021 07:22 AM Reporting Lab: [place] [facility]ME[facility] [address] [facility] [address] Performing Lab: [place] [facility] [address] [facility] [address] WBC 7.0 4.5-11.0 RBC 4.54 4.23-5.66 HGB [...] 0.00 0-0 Dec 09, 2021 06:46 AM [facility] MAGNESIUM Sp ecimen Type: PLASMA Comment: Tests performed on [employer] (213) SN:[id number] Ordering Provid er: ISATU TODD Report Released Date/Time: Dec 08, 2021 10:23 AM Reporting Lab: [facility] [address] [facility] [address] Performing Lab: [facility] [address] [facility] [address] MAGNESIUM 1.6 1.6-2.6 Dec 09, 2021 [facility] P4 GLU,BUN,CREAT,LYTES,CA Speci men Type: PLASMA 06:46 AM [facility] Comment: Tests performed on [employer] (405) SN:[id number] Ordering Provid er: ISATU TODD Report Released Date/Time: Dec 08, 2021 05:00 PM Reporting Lab: [facility] [address] [facility] [address] Performing Lab: [facility] [address] [facility] [address] UREA NITROGEN 6 L 7-25 SODIUM 134 [...] [facility] [address] [facility] [address] Performing Lab: [facility] [address] [facility] [address] WBC 7.1 4.5-11.0 RBC 4.40 4.23-5.66 HGB [...] 0.00 0-0 Dec 08, 2021 06:39 AM [place] CanoP T [facility] MAGNESIUM Sp ecimen Type: PLASMA Comment: Testin g Performed on [employer] (405) SN:[id number] Ordering Provid er: ISATU TODD Report Released Date/Time: Dec 07, 2021 10:32 AM Reporting Lab: [facility] [address] [facility] [address] Performing Lab: [facility] [address] [facility] [address] MAGNESIUM 1.5 L 1.6-2.6 Dec 08, 2021 [place] CanoP T P4 GLU,BUN,CREAT,LYTES,CA Speci men Type: PLASMA 06:39 AM [facility] Comment: Testin g Performed on [employer] (405) SN:[id number] Ordering Provid er: ISATU TODD Report Released Date/Time: Dec 07, 2021 10:32 AM Reporting Lab: [employer] T [facility] [address] [facility] [address] Performing Lab: [facility] [address] [facility] [address] UREA NITROGEN 6 L 7-25 SODIUM 136 135-145 POTASSIUM 3.3 L 3.5-5.0 CHLORIDE 104 100-110 CARBON DIOXIDE 22 20-30 ANION GAP 10 4-16 GLUCOSE 133 H 65-100 CREATININE 0.76 0.5-1.5 CALCIUM 8.4 L 8.5-10.5 eGFR(CKD-EPI 2020) >90.0 >60 Dec 08, 2021 06:39 AM [place] T [facility] CBC PROFILE Sp ecimen Type: BLOOD No comment enter ed. Ordering Provid er: ISATU TODD Report Released Date/Time: Dec 07, 2021 10:32 AM Reporting Lab: [facility] [address] [facility] [address] Performing Lab: [facility] [address] [facility] [address] WBC 8.4 4.5-11.0 RBC 4.75 4.23-5.66 HGB [...] 0.00 0-0 Dec 07, 2021 [facility] P4 GLU,BUN,CREAT,LYTES,CA Speci men Type: PLASMA 06:42 AM [facility] Comment: Tests performed on [employer] (405 SN:[id number] Ordering Provid er: PORFIRIO WALTERS Report Released Date/Time: Dec 06, 2021 06:57 PM Reporting Lab: [facility] [address] [facility] [address] Performing Lab: [facility] [address] [facility] [address] UREA NITROGEN 9 7-25 SODIUM 135 135-145 POTASSIUM 3.5 3.5-5.0 CHLORIDE 103 100-110 CARBON DIOXIDE 22 20-30 ANION GAP 10 4-16 GLUCOSE 92 65-100 CREATININE 0.73 0.5-1.5 CALCIUM 8.0 L 8.5-10.5 eGFR(CKD-EPI 2020) >90.0 >60 Dec 07, 2021 06:42 [place] LIVER PROFILE Specimen Typ e: PLASMA AM [facility] Comment: Tests performed on [employer] Associate Director Of Development (405) SN:[id number] Ordering Provid er: PORFIRIO WALTERS Report Released Date/Time: Dec 06, 2021 06:57 PM Reporting Lab: [facility] [address] [facility] [address] Performing Lab: [facility] [address] [facility] [address] PROTEIN, TOTAL 5.7 L 6.0-8.5 ALBUMIN 2.4 L 3.2-5.0 BILIRUBIN, TOTAL 0.4 0.2-1.2 ALKALINE PHOSPHATASE 109 40-150 ALT(SGPT) 10 7-52 AST(SGOT) 15 5-34 FIB-4 SCORE 1.92 <2.67 Dec 07, 2021 06:42 AM [facility] CBC PROFILE Specimen Type: BLOOD [facility] No comment enter ed. Ordering Provid er: PORFIRIO WALTERS Report Released Date/Time: Dec 06, 2021 06:57 PM Reporting Lab: [facility] [address] [facility] [address] Performing Lab: [facility] [address] [facility] [address] WBC 5.7 4.5-11.0 RBC 4.15 L 4.23-5.66 [...] [facility]AM[facility] %) AUTOMATED Comment: Tests performed on [employer] (405) SN:[id number] Ordering Provid er: ISATU TODD Report Released Date/Time: Dec 07, 2021 10:28 AM Reporting Lab: [place] [facility] [address] [facility] [address] Performing Lab: [place] [facility] [address] [facility] [address] RETICULOCYTES (%) AUTOMATED 1.23 0. 6-2.0 RETICULOCYTES (ABS) AUTOMATED 0.052 0.030-0.090 Dec 06, 2021 09:45 [place] MRSA SURVL NARES Specimen Ty pe: NARES PM [facility] DNA No comment enter ed. Ordering Provid er: ALVARO VARGHESE Report Released Date/Time: Dec 07, 2021 02:20 AM Reporting Lab: [place] [facility] [address] [facility] [address] Performing Lab: [place] [facility] [address] [facility] [address] MRSA SURVL NARES DNA NEGATIVE NEGATIVE Dec 06, 2021 06:00 [place] URINALYSIS W/REFLEX TO Speci men Type: URINE PM [facility] CULTURE No comment enter ed. Ordering Provid er: JELANI SÁNCHEZ Report Released Date/Time: Dec 06, 2021 11:57 AM Reporting Lab: [place] [facility] [address] [facility] [address] Performing Lab: [place] [facility] [address] [facility] [address] URINE COLOR Arlin YELLOW SPECIFIC GRAVITY 1.029 [...] 21, RIVER VARIANT Comment: https://www.cdc.gov/coronavirus/2019-ncov/cases-updates/variant- surveillance/variant-info.html The [employer] SARS CoV 2 Phase Eight Research Assay-GX is a next-generation sequencing (NGS) assa 2021 [facility] SEQUENCING y that determine s the complete genome sequence of the SARS-CoV-2 virus. The assay contains variant-tolerant primers to broaden and improve the coverage for variant detection and increase the sensitivity 12:00 [facility] PNL(WH) of the panel to enable detection from lower viral titer samples. The assay is run on the [employer] Sequencer, which performs automated library preparation, sequencing, analysis, and reporting. PM The sequence an alysis includes determination of viral phylogenetic lineage by comparison to the reference strain Wuhan-Hu-1, GenBank: [id number]. Sequence determination may not be possible owing [...] and its performance characteristics determined by the [facility] Molecular Diagnostics Laboratory, which is certified under the Clinical Laboratory Improveme nt Amendments (C MARCO) as qualified to perform high complexity clinical laboratory testing. This test is validated for clinical use at [facility] and should not be regarded as investigational or for research. The FDA does not require this test to go through premarket FDA review, and therefore it has not been cleared or approved by the FDA. This report was reviewed and approved by the on-service pathologist. Ordering Provid er: JELANI SÁNCHEZ Report Released Date/Time: Dec 06, 2021 01:13 PM Reporting Lab: [place] [facility] [address] [facility] [address] Performing Lab: [facility] [address] [facility] [address] SARS-CoV-2 CLADE() 22C (OMICRON) SARS-CoV-2 LINEAGE() BA.2.12.1 Dec 06, 2021 12:00 [facility] COVID-19 AG SCREEN Specimen Type: NASAL CAVITY PM [facility] PANEL BINAX(405) Comment: Testi ng Performed By: Mike Briscoe Ordering Provid er: JELANI SÁNCHEZ Report Released Date/Time: Dec 08, 2021 08:23 AM Reporting Lab: [place] [facility] [address] [facility] [address] Performing Lab: [facility] [address] [facility] [address] COVID-19 AG SCRN(wrj BINAX) POSITIVE HH NE G Dec 06, 2021 12:00 PM [facility] BNP(P) Sp ecimen Type: PLASMA Comment: Tests performed on Pham Associate Director Of Development (405) [id number] Ordering Provid er: JELANI SÁNCHEZ Report Released Date/Time: Dec 06, 2021 11:57 AM Reporting Lab: [facility] [address] [facility] [address] Performing Lab: [facility] [address] [facility] [address] BNP(P) 224.8 H 10-100 Dec 06, 2021 12:00 PM [facility] TROPONIN II Sp ecimen Type: PLASMA Comment: Tests performed on Pham Associate Director Of Development (405) [id number] Ordering Provid er: JELANI SÁNCHEZ Report Released Date/Time: Dec 06, 2021 11:57 AM Reporting Lab: [facility] [address] [facility] [address] Performing Lab: [facility] [address] [facility] [address] TROPONIN II 0.03 0.00-0.29 Dec 06, 2021 [place] P4 GLU,BUN,CREAT,LYTES,CA Speci men Type: PLASMA 12:00 PM [facility] Comment: Testin g Performed on Pham Associate Director Of Development (405) [id number] Ordering Provid er: JELANI SÁNCHEZ Report Released Date/Time: Dec 06, 2021 11:57 AM Reporting Lab: [facility] [address] [facility] [address] Performing Lab: [facility] [address] [facility] [address] UREA NITROGEN 13 7-25 SODIUM 138 135-145 POTASSIUM 3.8 3.5-5.0 CHLORIDE 103 100-110 CARBON DIOXIDE 23 20-30 ANION GAP 12 4-16 GLUCOSE 105 H 65-100 CREATININE 0.90 0.5-1.5 CALCIUM 8.7 8.5-10.5 eGFR(CKD-EPI 2020) >90.0 >60 Dec 06, 2021 12:00 PM [facility] [facility] LIVER PROFILE Sp ecimen Type: PLASMA Comment: Testin g Performed on Pham Associate Director Of Development (405) SN:[id number] Ordering Provid er: JELANI SÁNCHEZ Report Released Date/Time: Dec 06, 2021 11:57 AM Reporting Lab: [facility] [address] [facility] [address] Performing Lab: [facility] [address] [facility] [address] PROTEIN, TOTAL 6.6 6.0-8.5 ALBUMIN 2.8 L 3.2-5.0 BILIRUBIN, TOTAL 0.6 0.2-1.2 ALKALINE PHOSPHATASE 134 40-150 ALT(SGPT) 13 7-52 AST(SGOT) 18 5-34 FIB-4 SCORE 1.94 <2.67 Dec 06, 2021 [facility] COVID-19+FLU/RSV DIAGNOSTIC Spe cimen Type: NASOPHARYNX 12:00 PM [facility] PANEL(405) Comment: Tests performed on [employer] Genexpert (405) Critical results called to and read back by: ALESHIA WILKINSON RN 12/06/21 @ 1312 Ordering Provid er: JELANI SÁNCHEZ Report Released Date/Time: Dec 06, 2021 11:57 AM Reporting Lab: [facility] [address] [facility] [address] Performing Lab: [facility] [address] [facility] [address] FLU A(PCR) NEGATIVE NEGATIVE FLU B(PCR) NEGATIVE NEGATIVE RSV(PCR) NEGATIVE NEGATIVE COVID-19([id number]) DETECTED HH NO T DETECTED Dec 06, 2021 12:00 PM [facility] CBC PROFILE Sp ecimen Type: BLOOD No comment enter ed. Ordering Provid er: JELANI SÁNCHEZ Report Released Date/Time: Dec 06, 2021 11:57 AM Reporting Lab: [facility] [address] [facility] [address] Performing Lab: [facility] [address] [facility] [address] WBC 7.2 4.5-11.0 RBC 4.86 4.23-5.66 HGB [...] RIVER PM [facility] Dec 13, 97.9 F 82 108/62 20 /min 96 % 2021 03:27 /min mm[Hg] RIVER PM T [facility] Dec 13, 0 WHITE 2021 02:44 RIVER PM T [facility] Dec 13, 0 WHITE 2021 08:15 RIVER AM [facility] Dec 13, 0 WHITE 2021 05:18 RIVER AM [facility] Social [...] took place. Date/Time Smoking Status/Tobacco Use Comment [facility] Apr 01, 2020 01:16 [...] YEAR [facility] May 01, 2016 03:11 PM QUIT TOBACCO USE IN PAST YEAR CAREY DOYLE [facility] May 01, 2016 11:19 AM QUIT TOBACCO USE IN PAST YEAR CAREY DOYLE [place] [facility] Mar 16, 2016 12:50 PM V1-PT DECLINES [...] W/WO CONTRAST: MARYELLEN LONG LUCAS LARES N [id number] -1950 [facility] Exm Date: DEC 13, 2021@12:57 Req Phys: ISATU TODD Loc: OP Unknown/0 12-15-2021@13:20 Img Loc: MRI IMAGING (OOS) Service: ZZGENERAL MEDICINE (Case [id number] COMPLETE) MRI ABDOMEN W/WO CONTRAST (M RI Detailed) CPT:10128 Reason for Study: further characterization of a [...] new lyphadenopathy REQUESTING MD: Isatu Todd PAGER: [phone] PHONE: [phone] Weight: 232.2 lb [105.32 kg] (12/12/2021 05:00) [...] patient will need to arrange for a train driver to take him/her home after the [...] 15, 2021 Date Verified: DEC 15, 2021 Metalworking Specialist E-Sig:/ES/MARYELLEN LONG Report: MRI ABDOMEN W/WO CONTRAST [...] MALIGNANCY Primary Interpreting Staff: Staff AMELIA THOMAS (Metalworking Specialist) / Dec 10, 2021 09:[address] ABDOMEN & PELVIS: [facility] LUC[facility]EEK N [id number] -1950 M SERVICE [facility] Ex Date: DEC 10, 2021@09:30 Req Phys: ISATU TODD Loc: 1S MED/12-10@10:57 Img Loc: CT SCAN (OOS) Service: [facility] MEDICINE (Case [id number] COMPLETE) CT ABD & PELVIS WITHOUT CONT RAST (CT Detailed) CPT:76914 Reason for Study: 71 yo male with [...] INDEX - NO HEIGHTS FOUND Pager number: [phone] STAT orders MUST be call ed to RADIOLOGY [phone] to speak to the appropriate pattern technician. Report Status: Verified Date Reported: DEC 10, 2021 Date Verified: DEC 10, 2021 Metalworking Specialist E-Sig: Report: EXAM: CT abdomen and pelvis [...] ph nodes. READING PHYSICIAN: Ramone Munoz D.O. -[phone] 12/10/2021 10:55 EDT [facility] National Teleradiology Program [phone] (For Medical Practitioner Use Only ) [address] [place] [address] Attention Patients / Veterans: If you have ques tions or concerns about these test results, please contact your o rdering provider or primary care team. Primary Diagnostic Code: SIGNIFICANT ABNORMALIT Y, ATTN NEEDED Primary Interpreting Staff: RADIOLOGY,OUTSIDE SERVICE, Staff Physician / Dec 09, 2021 07:34 AM BASW (MODIFIED): JESSIE CHENEY TARA ER JCT LUCAS MEEK N [id number] -1950 M [facility] Exm Date: DEC 09, 2021@07:34 Req Phys: ISATU TODD Josseline Loc: 1S MED/12-09@11:26 Img Loc: XRAY (OOS) Service: [facility] MEDICINE (Case [id number] COMPLETE) BASW (MODIFIED) (RAD Detaile d) CPT:68503 Contrast Media : Barium Reason for Study: dysphagia ?esophageal spasm Clinical History: Report Status: Verified Date Reported: DEC 09, 2021 Date Verified: DEC 09, 2021 Metalworking Specialist E-Sig:/ES/JESSIE CHENEY Report: BASW (MODIFIED) , 12/09/2021 [...] REQUIRED Primary Interpreting Staff: JESSIE CHENEY, RADIOLOGIST (Metalworking Specialist) /TLC Dec 06, 2021 12:[address] CHEST (INCLUDES ADRENALS): JESSIE CHENEY [facility] LUCAS MEEK N [id number] -1950 M [facility] Exm Date: DEC 06, 2021@12:59 Req Phys: GONZALO,JELANI J Pat Loc: [facility] ED DAYS M 1RD (Req'g Loc) Img Loc: CT SCAN (OOS) Service: Unknown (Case [id number] COMPLETE) CT THORAX W/O CONT (CT Detai led) CPT:13927 Reason for Study: Opacification right chest Clinical History: No contrast allergy BUN: 13 (12/06/21 12:00) CREATI: 0.90 (12/06/21 12:00) eGFR 05/16/21 09:43 52 L Weight: 232.6 lb [105.51 kg] (12/06/2021 11:40) BODY MASS INDEX - NO HEIGHTS FOUND Pager number: [phone] STAT orders MUST be called t o RADIOLOGY [phone] to speak to the appropriate pattern technician. Indications - Other: Opacification right chest, covid positive, lung cancer histo Report Status: Verified Date Reported: DEC 06, 2021 Date Verified: DEC 06, 2021 Metalworking Specialist E-Sig:/ES/JESSIE CHENEY Report: CT THORAX W/O CONT [...] REQUIRED Primary Interpreting Staff: JESSIE CHENEY, RADIOLOGIST (Metalworking Specialist) Primary Interpreting Resident: PRINCE CHAMPION, Resident /BR Dec 06, 2021 11:58 AM CHEST SINGLE VIEW: JESSIE CHENEY DOUGLAS N [id number] -1950 M [facility] Exm Date: DEC 06, 2021@11:58 Req Phys: JELANI SÁNCHEZ Pat Loc: [facility] ED DAYS M 1RD (Req'g Loc) Img Loc: XRAY (OOS) Service: Unknown (Case [id number] COMPLETE) CHEST SINGLE VIEW (RAD Detai led) CPT:28759 Proc Modifiers : PORTABLE EXAM Reason for Study: SOB, home covid test positive Clinical History: Report Status: Verified Date Reported: DEC 06, 2021 Date Verified: DEC 06, 2021 Metalworking Specialist E-Sig:/ES/JESSIE CHENEY Report: Exam type: Chest x-ray [...] REQUIRED Primary Interpreting Staff: JESSIE CHENEY, RADIOLOGIST (Metalworking Specialist) /TLC Pathology Reports: +/- 30 days of [...] SURGICAL PATHOLOGY REPORT [facility] STANDARD TITLE: PATHOLOGY REPORT DATE OF NOTE: JAN 03, 2022@10:28:01 ENTRY DATE: JAN 03, 2022@10:28:01 AUTHOR: NIURKA MILLER EXP COSIGNER: URGENCY: STATUS: COMPLETED $APHDR Reporting Lab: CAREY MONTOYA [facility] [CLIA# [id number]] [address] [place] [address] - - - - - - [...] automatically d ocumented from SURGERY package case #[id number] Field (#32) PRINCIPAL PRE-OP DIAGNOSIS, (#.72) OTHER [...] automatically d ocumented from SURGERY package case #[id number] Field (#34) PRINCIPAL POST-OP DIAG, (#.74) OTHER [...] Label: Lucas Meek Paperwork: Lucas Meek Cassette: [id number];..;KALYANI;.;405;[id number] Specimen is labeled: ES bx Received in formalin are several pieces of pale boyd and brown tissue, 1.2 x 0.7 cm in aggregate. Submitted entirely in 1 cassette [id number];..;KALYANI;.;405;[id number] SAW 12/15/2021 Microscopic exam: *+* MODIFIED REPORT *+* (Last modified: JAN 03, 2022@09:30:20 typed by NIURKA WADDELL) DIAGNOSIS: A. 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 Kendell long. TIARA Coombs was notified on 12/21/21. Modified on 01/03/22 to include report from [facility] stating that tumor is NEGATIVE for her2/ matheus amplification. The attending pathologist who signature mansoor ears on this report has reviewed all diagnostic slides and has edited t he gross and/or microscopic portion of this report in rendering the final pathologic diagnosis. [address] [address] CPT: 16833 /emely/ NIURKA Yeung MD Signed Jan 03, 2022@10:28 Performing Laboratory: Surgical Pathology Report Performed By: CAREY MONTOYA [facility] [CLIA# [id number]] [address] [place] [address] $FTR - - - - - [...] - - LUCAS MEEK STANDARD FORM 515 ID:[id number] SEX:M :1950 AGE: 71 LOC: SDM END PCP: Isatu Todd /emely/ NIURKA MILLER Staff Signed: 01/03/2022 10:28 Dec 21, 2021 11:46 AM LR SURGICAL PATHOLOGY REPORT: STEFANY MILLER [facility] LOCAL TITLE: LR SURGICAL PATHOLOGY REPORT [facility] STANDARD TITLE: PATHOLOGY REPORT DATE OF NOTE: DEC 21, 2021@11:46:59 ENTRY DATE: DEC 21, 2021@11:46:59 AUTHOR: NIURKA MILLER EXP COSIGNER: URGENCY: STATUS: COMPLETED $APHDR Reporting Lab: [facility] [CLIA# [id number]] [address] [place] [address] - - - - - - [...] automatically d ocumented from SURGERY package case #[id number] Field (#32) PRINCIPAL PRE-OP DIAGNOSIS, (#.72) OTHER [...] automatically d ocumented from SURGERY package case #[id number] Field (#34) PRINCIPAL POST-OP DIAG, (#.74) OTHER [...] Label: Lucas Meek Paperwork: Lucas Meek Cassette: [id number];..;KALYANI;.;405;[id number] Specimen is labeled: ES bx Received in formalin are several pieces of pale boyd and brown tissue, 1.2 x 0.7 cm in aggregate. Submitted entirely in 1 cassette [id number];..;KALYANI;.;405;[id number] SAW 12/15/2021 Microscopic exam: DIAGNOSIS: A. 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 Kendell long. TIARA Coombs was notified on 12/21/21. The attending pathologist who signature mansoor ears on this report has reviewed all diagnostic slides and has edited t he gross and/or microscopic portion of this report in rendering the final pathologic diagnosis. [address] [address] CPT: 47489 /emely/ NIURKA Yeung MD Signed Dec 21, 2021@11:46 Performing Laboratory: Surgical Pathology Report Performed By: [facility] [CLIA# [id number]] [address] [place] [address] $FTR - - - - - [...] - - LUCAS MEEK STANDARD FORM 515 ID:[id number] SEX:M :1950 AGE: 71 LOC: [facility] END PCP: Isatu Todd /charmaine Yeung MD Signed: 12/21/2021 11:46 Dec 06, 2021 03:30 PM LR MICROBIOLOGY REPORT: [facility] Reporting Lab: [facility] [CLIA# [id number]] [address] [place] [address] Accession [UID]: [id number] [[id number]] Receiv ed: Dec 06, 2021@16:14 Collection sample: BLOOD CUL T BOTTLE(NIRMAL/AERO)Collection date: Dec 06, 2021 15:30 Site/Specimen: BLOOD Provider: JELANI SÁNCHEZ Comment on specimen: LAC Test(s) ordered: BLOOD CULTURE ANAEROBI C....... completed: Dec 12, 2021 06:18 * BACTERIOLOGY FINAL REPORT => Dec 12, 2021 06:1 8 TECH CODE: [id number] Bacteriology Remark(s): NO GROWTH IN 5 DAYS =--=--=--=--=--=--=--=--=--=--=--=--=--= --=--=--=--=--=--=--=--=--=--=--=--=-- Performing Laboratory: Bacteriology Report Performed By: [facility] [CLIA# [id number]] [address] [place] [address] Dec 06, 2021 03:30 PM LR MICROBIOLOGY REPORT: [facility] Reporting Lab: [facility] [CLIA# [id number]] [address] [place] [address] Accession [UID]: [id number] [[id number]] Receiv ed: Dec 06, 2021@16:14 Collection sample: BLOOD CUL T BOTTLE(NIRMAL/AERO)Collection date: Dec 06, 2021 15:30 Site/Specimen: BLOOD Provider: JELANI SÁNCHEZ Comment on specimen: LAC Test(s) ordered: BLOOD CULTURE AEROBIC. ........ completed: Dec 12, 2021 06:17 * BACTERIOLOGY FINAL REPORT => Dec 12, 2021 06:1 7 TECH CODE: [id number] Bacteriology Remark(s): NO GROWTH IN 5 DAYS =--=--=--=--=--=--=--=--=--=--=--=--=--= --=--=--=--=--=--=--=--=--=--=--=--=-- Performing Laboratory: Bacteriology Report Performed By: [facility] [CLIA# [id number]] [address] [place] [address]
--- OUTSIDE RECORDS SUMMARY | 2022-01-19 08:47 | XMS_ITS ---
DAILY HOSPITALIZATION DATA [facility] Encounter Summary Created on:December 13, 2021 Patient:LUCAS MEEK Sex:Male :1950 Author Organization [facility] Address [address] [place] [phone] Support Name Relationship Address Phone YUSRA MEEK Unavailable [address] [place] [address] YUSRA MEEK Unavailable [address] [facility] [place] [place] [address] CLAY MOSLEY Unavailable Unavailable SJ SANTACRUZ Unavailable [...] MEDICARE MEDICARE PART Jun 18, PART A [id number] DO KALYANI PATIENT (WNR) (M) A 2016 13A 1 [place]AS MEDICARE MEDICARE PART Jun 18, PART B [id number] DO KALYANI PATIENT (WNR) (M) B 2016 13A 1 [place] MEDICARE MEDICARE PART Jun 18, PART A [id number] KALYANIDO PATIENT (WNR) (M) A 2017 VH81 2 [place] MEDICARE MEDICARE PART Jun 18, PART B [id number] DO KALYANI PATIENT (WNR) (M) B 2017 VH81 2 [place] UNITED MEDICARE MCR(Jun 18 [id number] Luz MEEK PATIENT HEALTHCARE ADVANTAGE NR) 2021 37 0 [facility] [place] (WNR) Selected Encounter This section includes the information on record at [place] for the Encounter. Date/Time Encounter Type Encounter Description Reason Provider Source Dec 13, 2021 08:22 Inpatient Visit DAILY HOSPITALIZATION DATA AM [facility] Encounter Template Text not used by MA [...] - [place] [facility] Jan 10, 2022 11:30 AM [facility] Jan 24, 2022 08:00 AM [place] [facility] Feb 21, 2022 10:00 AM [place] [facility] Mar 21, 2022 10:30 AM [...] The data comes from all [place] treatment [facility]. Test Date/Time Test Type Test Details Facility Name October 31, 2021 07:37 AM Consult Order COMMUNITY CARE-EGD [facility] Cons [place] [facility] [facility] November 15, 2021 10:37 AM Consult Order [facility] CARE-PODIATRY [place] Dec 06, 2021 12:52 PM [place] In[place] Order [facility] Dec 06, 2021 03:24 PM [place]acy [place] Order [facility] Dec 06, 2021 03:40 PM [place]acy [place] Order [facility] Dec 15, 2021 08:41 AM Consult Order SPEECH PATHOLOGY [place] Cons [facility] Jan 15, 2022 10:08 PM Consult Order [facility] CARE-PALLIATIVE CARE [facility] [place] [facility] Lab Results: +/- 30 days of [...] Reference Range Comment Dec 15, 2021 [place] P4 GLU,BUN,CREAT,LYTES,CA Speci men Type: PLASMA 06:43 AM [facility] Comment: Tests performed on SimplyCast (405) SN:[id number] Ordering Provid er: ISATU TODD Report Released Date/Time: Dec 11, 2021 07:42 AM Reporting Lab: [facility] T [facility] [address] [facility] [address] Performing Lab: [facility] [address] [facility] [address] UREA NITROGEN 9 7-25 SODIUM 137 135-145 POTASSIUM 3.8 3.5-5.0 CHLORIDE 105 100-110 CARBON DIOXIDE 26 20-30 ANION GAP 6 4-16 GLUCOSE 102 H 65-100 CREATININE 0.64 0.5-1.5 CALCIUM 8.1 L 8.5-10.5 eGFR(CKD-EPI 2020) >90.0 >60 Dec 15, 2021 06:43 AM [facility] CBC PROFILE Sp ecimen Type: BLOOD No comment enter ed. Ordering Provid er: ISATU TODD Report Released Date/Time: Dec 10, 2021 07:22 AM Reporting Lab: [facility] T [facility] [address] [facility] [address] Performing Lab: [facility] [address] [facility] [address] WBC 5.7 4.5-11.0 RBC 4.22 L 4.23-5.66 [...] ABSOLUTE NRBC 0.00 0-0 Dec 14, 2021 [facility] CYTOGENETIC Specimen Type: ESOPHAGUS 02:59 PM VAOC FISH([facility]) Comment: ~For T est: CYTOGENETIC FISH([facility]) ~FISH HER 2 NUE, FFPE See full report in Pixspan Image display viewer/tab#LAB-Reference Ordering Provid er: NIURKA MILLER Report Released Date/Time: Dec 21, 2021 12:11 PM Reporting Lab: [facility] [address] [facility] [address] Performing Lab: [facility] CYTOGENETIC FISH([facility]) comment Dec 14, 2021 [facility] P4 GLU,BUN,CREAT,LYTES,CA Speci men Type: PLASMA 06:27 AM [facility] Comment: Tests performed on SimplyCast (405) SN:[id number] Ordering Provid er: ISATU TODD Report Released Date/Time: Dec 11, 2021 07:42 AM Reporting Lab: [facility] [address] [facility] [address] Performing Lab: [facility] [address] [facility] [address] UREA NITROGEN 10 7-25 SODIUM 137 135-145 POTASSIUM 4.0 3.5-5.0 CHLORIDE 104 100-110 CARBON DIOXIDE 25 20-30 ANION GAP 8 4-16 GLUCOSE 99 65-100 CREATININE 0.67 0.5-1.5 CALCIUM 8.2 L 8.5-10.5 eGFR(CKD-EPI 2020) >90.0 >60 Dec 14, 2021 06:27 AM [facility] CBC PROFILE Sp ecimen Type: BLOOD No comment enter ed. Ordering Provid er: ISATU TODD Report Released Date/Time: Dec 10, 2021 07:22 AM Reporting Lab: [facility] [address] [facility] [address] Performing Lab: [facility] [address] [facility] [address] WBC 6.0 4.5-11.0 RBC 4.29 4.23-5.66 HGB [...] ABSOLUTE NRBC 0.00 0-0 Dec 13, 2021 [facility] P4 GLU,BUN,CREAT,LYTES,CA Speci men Type: PLASMA 06:34 AM [facility] Comment: Tests performed on SimplyCast (405) SN:[id number] Ordering Provid er: ISATU TODD Report Released Date/Time: Dec 11, 2021 07:42 AM Reporting Lab: [facility] [address] [facility] [address] Performing Lab: [facility] [address] [facility] [address] UREA NITROGEN 12 7-25 SODIUM 136 135-145 POTASSIUM 3.9 3.5-5.0 CHLORIDE 105 100-110 CARBON DIOXIDE 24 20-30 ANION GAP 7 4-16 GLUCOSE 102 H 65-100 CREATININE 0.66 0.5-1.5 CALCIUM 8.3 L 8.5-10.5 eGFR(CKD-EPI 2020) >90.0 >60 Dec 13, 2021 06:34 AM [facility] CBC PROFILE Sp ecimen Type: BLOOD No comment enter ed. Ordering Provid er: ISATU TODD Report Released Date/Time: Dec 10, 2021 07:22 AM Reporting Lab: [facility] [address] [facility] [address] Performing Lab: [facility] [address] [facility] [address] WBC 5.6 4.5-11.0 RBC 4.28 4.23-5.66 HGB [...] ABSOLUTE NRBC 0.00 0-0 Dec 12, 2021 [facility] P4 GLU,BUN,CREAT,LYTES,CA Speci men Type: PLASMA 06:21 AM [facility] Comment: Tests performed on SimplyCast (405) SN:[id number] Ordering Provid er: ISATU TODD Report Released Date/Time: Dec 11, 2021 07:42 AM Reporting Lab: [facility] [address] [facility] [address] Performing Lab: [facility] [address] [facility] [address] UREA NITROGEN 11 7-25 SODIUM 139 135-145 POTASSIUM 4.1 3.5-5.0 CHLORIDE 107 100-110 CARBON DIOXIDE 24 20-30 ANION GAP 8 4-16 GLUCOSE 110 H 65-100 CREATININE 0.70 0.5-1.5 CALCIUM 8.3 L 8.5-10.5 eGFR(CKD-EPI 2020) >90.0 >60 Dec 12, 2021 06:21 AM [facility] CBC PROFILE Sp ecimen Type: BLOOD No comment enter ed. Ordering Provid er: ISATU TODD Report Released Date/Time: Dec 10, 2021 07:22 AM Reporting Lab: [facility] [address] [facility] [address] Performing Lab: [facility] [address] [facility] [address] WBC 5.5 4.5-11.0 RBC 4.37 4.23-5.66 HGB [...] Type: PLASMA Comment: Testin g Performed on SimplyCast (405) SN:[id number] Ordering Provid er: ISATU TODD Report Released Date/Time: Dec 12, 2021 08:24 AM Reporting Lab: [place] [facility] [address] [facility] [address] Performing Lab: [employer] [place] [facility]T [facility] [address] [facility] [address] MAGNESIUM 1.8 1.6-2.6 Dec 12, 2021 06:00 AM [employer] [facility] PHOSPHORUS Sp ecimen Type: PLASMA Comment: Testin g Performed on SimplyCast (405) SN:[id number] Ordering Provid er: ISATU TODD Report Released Date/Time: Dec 12, 2021 08:24 AM Reporting Lab: [place] [facility]T [facility] [address] [facility] [address] Performing Lab: [place] [facility] [address] [facility] [address] PHOSPHORUS 3.1 2.5-5.0 Dec 11, 2021 06:15 AM [employer] [place] [facility]T [facility] ELECTROLYTES Sp ecimen Type: PLASMA Comment: Tests performed on SimplyCast (405) SN:[id number] Ordering Provid er: ISATU TODD Report Released Date/Time: Dec 10, 2021 07:22 AM Reporting Lab: [place] [facility] [address] [facility] [address] Performing Lab: [place] [facility] [address] [facility] [address] SODIUM 137 135-145 POTASSIUM 4.3 3.5-5.0 CHLORIDE 108 100-110 CARBON DIOXIDE 20 20-30 ANION GAP 9 4-16 Dec 11, 2021 06:15 AM [place] [employer]T [facility] CBC PROFILE Sp ecimen Type: BLOOD Comment: Result s checked Ordering Provid er: ISATU TODD Report Released Date/Time: Dec 10, 2021 07:22 AM Reporting Lab: [place] [employer] [facility] [address] [facility] [address] Performing Lab: [place] [facility]ME[facility] [address] [facility] [address] WBC 5.8 4.5-11.0 RBC 4.37 4.23-5.66 HGB [...] ecimen Type: PLASMA Comment: Tests performed on SimplyCast (880) SN:[id number] Results checked Ordering Provid er: ISATU TODD Report Released Date/Time: Dec 11, 2021 07:44 AM Reporting Lab: [facility] [facility] [address] [facility] [address] Performing Lab: [place] [facility]MEGAT [facility] [address] [facility] [address] PHOSPHORUS 3.0 2.5-5.0 Dec 10, 2021 08:05 AM [place] [facility] MAGNESIUM Sp ecimen Type: PLASMA Comment: [place] [id number] on Dec 10, 2021@08:31 Tests performed on SimplyCast (405) SN:[id number] Ordering Provid er: ISATU TODD Report Released Date/Time: Dec 10, 2021 07:22 AM Reporting Lab: [place] [facility] [address] [place] [facility] [place] [address] Performing Lab: [place] [facility] [address] [place] [facility] [place] [address] MAGNESIUM 1.7 1.6-2.6 Dec 10, 2021 08:05 AM [place] UREA NITROGEN Specimen Type: PLASMA [facility] Comment: [place] [id number] on Dec 10, 2021@08:31 Tests performed on SimplyCast (405) SN:[id number] Ordering Provid er: ISATU TODD Report Released Date/Time: Dec 10, 2021 07:22 AM Reporting Lab: [place] [facility] [address] [place] [facility] [place] [address] Performing Lab: [place] [facility] [address] [place] [facility] [place] [address] UREA NITROGEN 8 7-25 Dec 10, 2021 08:05 AM [place] [facility] PHOSPHORUS Sp ecimen Type: PLASMA Comment: [place] [id number] on Dec 10, 2021@08:31 Tests performed on SimplyCast (405) SN:[id number] Ordering Provid er: ISATU TODD Report Released Date/Time: Dec 10, 2021 07:22 AM Reporting Lab: [place] [facility] [address] [place] [facility] [place] [address] Performing Lab: [place] [facility] [address] [place] [facility] [place] [address] PHOSPHORUS 1.8 L 2.5-5.0 Dec 10, 2021 08:05 AM [place] [facility] CALCIUM Sp ecimen Type: PLASMA Comment: [place] [id number] on Dec 10, 2021@08:31 Tests performed on SimplyCast (405) SN:[id number] Ordering Provid er: ISATU TODD Report Released Date/Time: Dec 10, 2021 07:22 AM Reporting Lab: [place] [facility] [address] [facility] [address] Performing Lab: [place] [facility] [address] [facility] [address] CALCIUM 8.3 L 8.5-10.5 Dec 10, 2021 08:05 AM [place] [facility] GLUCOSE Sp ecimen Type: PLASMA Comment: [place] [id number] on Dec 10, 2021@08:31 Tests performed on Pham MyColorScreen (405) SN:[id number] Ordering Provid er: ISATU TODD Report Released Date/Time: Dec 10, 2021 07:22 AM Reporting Lab: [place] [facility] [address] [facility] [address] Performing Lab: [place] [facility] [address] [facility] [address] GLUCOSE 144 H 65-100 Dec 10, 2021 08:05 AM [place] [facility] ELECTROLYTES Sp ecimen Type: PLASMA Comment: [place] [id number] on Dec 10, 2021@08:31 Tests performed on SimplyCast (405) SN:[id number] Ordering Provid er: ISATU TODD Report Released Date/Time: Dec 10, 2021 07:22 AM Reporting Lab: [place] [facility] [address] [facility] [address] Performing Lab: [place] [facility] [address] [facility] [address] SODIUM 139 135-145 POTASSIUM 3.7 3.5-5.0 CHLORIDE 107 100-110 CARBON DIOXIDE 24 20-30 ANION GAP 8 4-16 Dec 10, 2021 08:05 [place] CREATININE WITH eGFR Specime n Type: PLASMA AM [facility] PANEL Comment: [place] [id number] on Dec 10, 2021@08:31 Tests performed on SimplyCast (405) SN:[id number] Ordering Provid er: ISATU TODD Report Released Date/Time: Dec 10, 2021 07:22 AM Reporting Lab: [place] [facility] [address] [facility] [address] Performing Lab: [place] [facility] [address] [facility] [address] CREATININE 0.78 0.5-1.5 eGFR(CKD-EPI 2020) >90.0 >60 Dec 10, 2021 08:05 AM [facility] CBC PROFILE Sp ecimen Type: BLOOD No comment enter ed. Ordering Provid er: ISATU TODD Report Released Date/Time: Dec 10, 2021 07:22 AM Reporting Lab: [place] [facility]ME[place] [facility] [address] [facility] [address] Performing Lab: [place] OMEGAT [facility] [address] [facility] [address] WBC 7.0 4.5-11.0 RBC 4.54 4.23-5.66 HGB [...] ecimen Type: PLASMA Comment: Tests performed on SimplyCast (550) SN:[id number] Ordering Provid er: ISATU TODD Report Released Date/Time: Dec 08, 2021 10:23 AM Reporting Lab: [facility] [address] [facility] [address] Performing Lab: [facility] [address] [facility] [address] MAGNESIUM 1.6 1.6-2.6 Dec 09, 2021 [facility] P4 GLU,BUN,CREAT,LYTES,CA Speci men Type: PLASMA 06:46 AM [facility] Comment: Tests performed on SimplyCast (405) SN:[id number] Ordering Provid er: ISATU TODD Report Released Date/Time: Dec 08, 2021 05:00 PM Reporting Lab: [facility] [address] [facility] [address] Performing Lab: [facility] [address] [facility] [address] UREA NITROGEN 6 L 7-25 SODIUM 134 L 135-145 POTASSIUM 3.7 3.5-5.0 CHLORIDE 103 100-110 CARBON DIOXIDE 23 20-30 ANION GAP 8 4-16 GLUCOSE 112 H 65-100 CREATININE 0.70 0.5-1.5 CALCIUM 8.1 L 8.5-10.5 eGFR(CKD-EPI 2020) >90.0 >60 Dec 09, 2021 06:46 AM [facility] CBC PROFILE Sp ecimen Type: BLOOD No comment enter ed. Ordering Provid er: ISATU TODD Report Released Date/Time: Dec 08, 2021 05:00 PM Reporting Lab: [facility] [address] [facility] [address] Performing Lab: [facility] [address] [facility] [address] WBC 7.1 4.5-11.0 RBC 4.40 4.23-5.66 HGB [...] 0.00 0-0 Dec 08, 2021 06:39 AM [place] [employer] T [facility] MAGNESIUM Sp ecimen Type: PLASMA Comment: Testin g Performed on SimplyCast (405) SN:[id number] Ordering Provid er: ISATU TODD Report Released Date/Time: Dec 07, 2021 10:32 AM Reporting Lab: [facility] [address] [facility] [address] Performing Lab: [facility] [address] [facility] [address] MAGNESIUM 1.5 L 1.6-2.6 Dec 08, 2021 [place] [employer] T P4 GLU,BUN,CREAT,LYTES,CA Speci men Type: PLASMA 06:39 AM [facility] Comment: Testin g Performed on SimplyCast (405) SN:[id number] Ordering Provid er: ISATU TODD Report Released Date/Time: Dec 07, 2021 10:32 AM Reporting Lab: [employer] T [facility] [address] [facility] [address] Performing Lab: [facility] [address] [facility] [address] UREA NITROGEN 6 L 7-25 SODIUM 136 135-145 POTASSIUM 3.3 L 3.5-5.0 CHLORIDE 104 100-110 CARBON DIOXIDE 22 20-30 ANION GAP 10 4-16 GLUCOSE 133 H 65-100 CREATININE 0.76 0.5-1.5 CALCIUM 8.4 L 8.5-10.5 eGFR(CKD-EPI 2020) >90.0 >60 Dec 08, 2021 06:39 AM [place] [employer] T [facility] CBC PROFILE Sp ecimen Type: BLOOD No comment enter ed. Ordering Provid er: ISATU TODD Report Released Date/Time: Dec 07, 2021 10:32 AM Reporting Lab: [facility] [address] [facility] [address] Performing Lab: [facility] [address] [facility] WBC [...] NRBC 0.00 0-0 Dec 07, 2021 06:42 [facility] LIVER PROFILE Specimen Typ e: PLASMA AM [facility] Comment: Tests performed on SimplyCast (405 SN:[id number] Ordering Provid er: PORFIRIO WALTERS Report Released Date/Time: Dec 06, 2021 06:57 PM Reporting Lab: [facility] [address] [facility] [address] Performing Lab: [facility] [address] [facility] [address] PROTEIN, TOTAL 5.7 L 6.0-8.5 ALBUMIN 2.4 L 3.2-5.0 BILIRUBIN, TOTAL 0.4 0.2-1.2 ALKALINE PHOSPHATASE 109 40-150 ALT(SGPT) 10 7-52 AST(SGOT) 15 5-34 FIB-4 SCORE 1.92 <2.67 Dec 07, 2021 [facility] P4 GLU,BUN,CREAT,LYTES,CA Speci men Type: PLASMA 06:42 AM [facility] Comment: Tests performed on SimplyCast (405) SN:[id number] Ordering Provid er: PORFIRIO WALTERS Report Released Date/Time: Dec 06, 2021 06:57 PM Reporting Lab: [place] [facility] [address] [facility] [address] Performing Lab: [place] [facility] [address] [facility] [address] UREA NITROGEN 9 7-25 SODIUM 135 135-145 POTASSIUM 3.5 3.5-5.0 CHLORIDE 103 100-110 CARBON DIOXIDE 22 20-30 ANION GAP 10 4-16 GLUCOSE 92 65-100 CREATININE 0.73 0.5-1.5 CALCIUM 8.0 L 8.5-10.5 eGFR(CKD-EPI 2020) >90.0 >60 Dec 07, 2021 06:42 AM [place] CBC PROFILE Specimen Type: BLOOD [facility] No comment enter ed. Ordering Provid er: PORFIRIO WALTERS Report Released Date/Time: Dec 06, 2021 06:57 PM Reporting Lab: [place] [facility] [address] [facility] [address] Performing Lab: [facility] [address] [facility] [address] WBC 5.7 4.5-11.0 RBC 4.15 L 4.23-5.66 [...] [facility]AM[facility] %) AUTOMATED Comment: Tests performed on SimplyCast (405) SN:[id number] Ordering Provid er: ISATU TODD Report Released Date/Time: Dec 07, 2021 10:28 AM Reporting Lab: [place] [facility] [address] [facility] [address] Performing Lab: [place] [facility] [address] [facility] [address] RETICULOCYTES (%) AUTOMATED 1.23 0. 6-2.0 RETICULOCYTES (ABS) AUTOMATED 0.052 0.030-0.090 Dec 06, 2021 09:45 [place] MRSA SURVL NARES Specimen Ty pe: NARES PM [facility] DNA No comment enter ed. Ordering Provid er: ALVARO VARGHESE Report Released Date/Time: Dec 07, 2021 02:20 AM Reporting Lab: [place] [facility] [address] [facility] [address] Performing Lab: [place] [facility] [address] [facility] [address] MRSA SURVL NARES DNA NEGATIVE NEGATIVE Dec 06, 2021 06:00 [place] URINALYSIS W/REFLEX TO Speci men Type: URINE PM [facility] CULTURE No comment enter ed. Ordering Provid er: JELANI SÁNCHEZ Report Released Date/Time: Dec 06, 2021 11:57 AM Reporting Lab: [place] [facility] [address] [facility] [address] Performing Lab: [place] [facility] [address] [facility] [address] URINE COLOR Arlin YELLOW SPECIFIC GRAVITY 1.029 [...] 21, [place]IANT Comment: https://www.cdc.gov/coronavirus/2019-ncov/cases-updates/variant- surveillance/variant-info.html The Orlebar Brown SARS CoV 2 [employer] Assay-GX is a next-generation sequencing (NGS) assa 2021 [facility] SEQUENCING y that determine s the complete genome sequence of the SARS-CoV-2 virus. The assay contains variant-tolerant primers to broaden and improve the coverage for variant detection and increase the sensitivity 12:00 [facility] PNL(WH) of the panel to enable detection from lower viral titer samples. The assay is run on the [employer] Sequencer, which performs automated library preparation, sequencing, analysis, and reporting. PM The sequence an alysis includes determination of viral phylogenetic lineage by comparison to the reference strain Wuhan-Hu-1, GenBank: [id number]. Sequence determination may not be possible owing [...] its performance characteristics determined by the [facility] Molecular Diagnostics Laboratory, which is certified under the Clinical Laboratory Improveme nt Amendments (C MARCO) as qualified to perform high complexity clinical laboratory testing. This test is validated for clinical use at [facility] and should not be regarded as [...] [facility] [address] [facility] [address] Performing Lab: [facility] [address] [facility] [address] SARS-CoV-2 CLADE() 22C (OMICRON) SARS-CoV-2 LINEAGE() BA.2.12.1 Dec 06, 2021 12:00 [facility] COVID-19 AG SCREEN Specimen Type: NASAL CAVITY PM [facility] PANEL BINAX(405) Comment: Testi ng Performed By: Mike Briscoe Ordering Provid er: JELANI SÁNCHEZ Report Released Date/Time: Dec 08, 2021 08:23 AM Reporting Lab: [facility] [address] [facility] [address] Performing Lab: [facility] [address] [facility] [address] COVID-19 AG SCRN(wrj BINAX) POSITIVE HH NE G Dec 06, 2021 12:00 PM [facility] TROPONIN II Sp ecimen Type: PLASMA Comment: Tests performed on Pham Animal Researcher (405) [id number] Ordering Provid er: JELANI SÁNCHEZ Report Released Date/Time: Dec 06, 2021 11:57 AM Reporting [facility] [address] [place] [facility] [place] [facility] [place] [address] Performing Lab: [facility] [address] [facility] [address] TROPONIN II 0.03 0.00-0.29 Dec 06, 2021 12:00 PM [facility] LIVER PROFILE Sp ecimen Type: PLASMA Comment: Testin g Performed on [employer] Animal Researcher (405) [id number] Ordering Provid er: JELANI SÁNCHEZ Report Released Date/Time: Dec 06, 2021 11:57 AM Reporting [facility] [address] [facility] [address] Performing Lab[facility] [address] [facility] [address] PROTEIN, TOTAL 6.6 6.0-8.5 ALBUMIN 2.8 L 3.2-5.0 BILIRUBIN, TOTAL 0.6 0.2-1.2 ALKALINE PHOSPHATASE 134 40-150 ALT(SGPT) 13 7-52 AST(SGOT) 18 5-34 FIB-4 SCORE 1.94 <2.67 Dec 06, 2021 [facility] [place] P4 GLU,BUN,CREAT,LYTES,CA Speci men Type: PLASMA 12:00 PM [facility] Comment: Testin g Performed on Pham Animal Researcher (405) [id number] Ordering Provid er: JELANI SÁNCHEZ Report Released Date/Time: Dec 06, 2021 11:57 AM Reporting Lab: [facility] [address] [facility] [address] Performing Lab: [facility] [address] [facility] [address] UREA NITROGEN 13 7-25 SODIUM 138 135-145 POTASSIUM 3.8 3.5-5.0 CHLORIDE 103 100-110 CARBON DIOXIDE 23 20-30 ANION GAP 12 4-16 GLUCOSE 105 H 65-100 CREATININE 0.90 0.5-1.5 CALCIUM 8.7 8.5-10.5 eGFR(CKD-EPI 2020) >90.0 >60 Dec 06, 2021 12:00 PM [facility] BNP(P) Sp ecimen Type: PLASMA Comment: Tests performed on Pham Animal Researcher (405) SN:[id number] Ordering Provid er: JELANI SÁNCHEZ Report Released Date/Time: Dec 06, 2021 11:57 AM Reporting Lab: [facility] [address] [facility] [address] Performing Lab: [facility] [address] [facility] [address] BNP(P) 224.8 H 10-100 Dec 06, 2021 [facility] [place] COVID-19+FLU/RSV DIAGNOSTIC Spe cimen Type: NASOPHARYNX 12:00 PM [facility] PANEL(405) Comment: Tests performed on WorkVoicesxpert (405) Critical results called to and read back by: ALESHIA WILKINSON RN 12/06/21 @ 1312 Ordering Provid er: JELANI SÁNCHEZ Report Released Date/Time: Dec 06, 2021 11:57 AM Reporting Lab: [facility] [address] [facility] [address] Performing Lab: [place] [facility] [address] [facility] [address] FLU A(PCR) NEGATIVE NEGATIVE FLU B(PCR) NEGATIVE NEGATIVE RSV(PCR) NEGATIVE NEGATIVE COVID-19(LMT-caj-HMOOYCAAM) DETECTED HH NO T DETECTED Dec 06, 2021 12:00 PM [facility] Sp ecimen Type: BLOOD No comment enter ed. Ordering Provid er: JELANI SÁNCHEZ Report Released Date/Time: Dec 06, 2021 11:57 AM Reporting Lab: [facility] [address] [facility] [address] Performing Lab: [facility] [address] [facility] [address] WBC 7.2 4.5-11.0 RBC 4.86 4.23-5.66 HGB [...] WHITE 2021 09:20 /min mm[Hg] RIVER PM [facility] Dec 13, 97.9 F 82 108/62 20 /min 96 % 2021 03:27 /min mm[Hg] RIVER PM [facility] Dec 13, 0 WHITE 2021 02:44 RIVER PM [facility] Dec 13, 0 WHITE 2021 08:15 RIVER AM [facility] Dec 13, 0 WHITE 2021 05:18 RIVER AM [facility] Social History: Smoking Status (Most [...] QUIT TOBACCO USE > 7 YEARS AGO [facility] Tobacco Use History This section includes a history of the smoking, or tobacco- related health factors, that were collected on or before the date of the Encounter. The data comes from the [place] facility where the Encounter took place. Date/Time Smoking Status/Tobacco Use Comment [facility] Apr 01, 2020 01:16 PM QUIT TOBACCO USE 1-7 YEARS AGO [facility] Mar 24, 2020 03:00 PM [...] PM QUIT TOBACCO USE IN PAST YEAR [facility] May 23, 2016 06:57 PM QUIT TOBACCO USE > 7 YEARS AGO [facility] May 19, 2016 03:55 PM QUIT TOBACCO USE IN PAST YEAR [facility] May 19, 2016 10:29 AM QUIT TOBACCO USE 1-7 YEARS AGO [facility] May 01, 2016 07:26 PM QUIT TOBACCO USE IN PAST YEAR [facility] May 01, 2016 03:11 PM QUIT TOBACCO USE IN PAST YEAR [facility] DOYLE [facility] May 01, 2016 11:19 AM QUIT TOBACCO USE IN PAST YEAR [facility] [place] [facility] Mar 16, 2016 12:50 PM V1-PT DECLINES REF TO TOBACCO CAREY DOYLE [facility] CESS PRGM Mar 16, 2016 12:50 PM V1-PT THINKING ABOUT QUIT CAREY DOYLE [facility] TOBACCO USE Aug 12, 2015 08:48 AM CURRENT SMOKER CAREY Yates [facility] Radiology Reports: +/- 30 days [...] W/WO CONTRAST: MARYELLEN LONG LUCAS LARES N [id number] -1950 [facility] Exm Date: DEC 13, 2021@12:57 Req Phys: ISATU TODD Loc: OP Unknown/0 12-15-2021@13:20 Img Loc: MRI IMAGING (OOS) Service: ZZGENERAL MEDICINE (Case [id number] COMPLETE) MRI ABDOMEN W/WO CONTRAST (M RI Detailed) CPT:91231 Reason for Study: further characterization of a bnormal liver findings on CT Clinical History: SERVICE OEF/OIF LOCATION: N/A SERVICE CONNECTED % - NONE FOUND PROCEDURE REQUESTED: MRI abdomen for further ch aracterization of cirrhosis/Multilobular gastrohepatic soft ti ssue seen on recent CT abdomen CLINICAL HISTORY/REASON FOR REQUEST: 71 yo male with history of stage II maog ng adenocarcinoma and new weight loss, dysphagia, and CT findings concerning for distal esophageal thickening and new lyphadenopathy REQUESTING MD: Isatu Todd PAGER: [phone] PHONE: [phone] Weight: 232.2 lb [105.32 kg] (12/12/2021 05:00) [...] will need to arrange for a sales warehouse driver to take him/her home after the [...] 15, 2021 Date Verified: DEC 15, 2021 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 E-Sig:/ES/MARYELLEN LONG Report: MRI ABDOMEN W/WO CONTRAST [...] MALIGNANCY Primary Interpreting Staff: Staff AMELIA THOMAS (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 Assembler) / Dec 10, 2021 09:[address] ABDOMEN & PELVIS: [facility] LUCAS MEEK N [id number] -1950 M SERVICE [facility] Ex Date: DEC 10, 2021@09:30 Req Phys: ISATU TODD Loc: 1S MED/12-10@10:57 Img Loc: CT SCAN (OOS) Service: [facility] MEDICINE (Case [id number] COMPLETE) CT ABD & PELVIS WITHOUT CONT RAST (CT Detailed) CPT:45139 Reason for Study: 71 yo male with [...] INDEX - NO HEIGHTS FOUND Pager number: [phone] STAT orders MUST be call ed to RADIOLOGY [phone] to speak to the appropriate pest control service technician. Report Status: Verified Date Reported: DEC 10, 2021 Date Verified: DEC 10, 2021 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 Assembler E-Sig: Report: EXAM: CT abdomen and pelvis [...] ph nodes. READING PHYSICIAN: Ramone Munoz D.O. -[phone] 12/10/2021 10:55 EDT [facility] [phone] (For Medical Practitioner Use Only ) [address], [facility] [address], [address] [place] [address] Attention Patients / Veterans: If you have ques tions or concerns about these test results, please contact your o rdering provider or primary care team. Primary Diagnostic Code: SIGNIFICANT ABNORMALIT Y, ATTN NEEDED Primary Interpreting Staff: RADIOLOGY,OUTSIDE SERVICE, Staff Physician / Dec 09, 2021 07:34 AM BASW (MODIFIED): JESSIE CHENEY [facility] [facility] [place] LUCAS MEEK N [id number] -1950 [facility] Exm Date: DEC 09, 2021@07:34 Req Phys: ISATU TODD Josseline Loc: 1S MED/12-09@11:26 Img Loc: XRAY (OOS) Service: [facility] MEDICINE (Case [id number] COMPLETE) BASW (MODIFIED) (RAD Detaile d) CPT:98691 Contrast Media : Barium Reason for Study: dysphagia ?esophageal spasm Clinical History: Report Status: Verified Date Reported: DEC 09, 2021 Date Verified: DEC 09, 2021 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 Assembler E-Sig:/ES/JESSIE CHENEY Report: BASW (MODIFIED) , 12/09/2021 [...] REQUIRED Primary Interpreting Staff: JESSIE CHENEY, RADIOLOGIST (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 Assembler) /TLC Dec 06, 2021 12:[address] CHEST (INCLUDES ADRENALS): [facility]UCAS MEEK N [id number] -1950 [facility] Exm Date: DEC 06, 2021@12:59 Req Phys: GONZALO,JELANI J Pat Loc: [facility] ED DAYS M 1RD (Req'g Loc) Img Loc: CT SCAN (OOS) Service: Unknown (Case [id number] COMPLETE) CT THORAX W/O CONT (CT Detai led) CPT:68287 Reason for Study: Opacification right chest Clinical History: No contrast allergy BUN: 13 (12/06/21 12:00) CREATI: 0.90 (12/06/21 12:00) eGFR 05/16/21 09:43 52 L Weight: 232.6 lb [105.51 kg] (12/06/2021 11:40) BODY MASS INDEX - NO HEIGHTS FOUND Pager number: [phone] STAT orders MUST be called t o RADIOLOGY [phone] to speak to the appropriate pest control service technician. Indications - Other: Opacification right chest, covid positive, lung cancer histo Report Status: Verified Date Reported: DEC 06, 2021 Date Verified: DEC 06, 2021 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 Assembler E-Sig:/ES/JESSIE CHENEY Report: CT THORAX W/O CONT [...] REQUIRED Primary Interpreting Staff: JESSIE CHENEY, RADIOLOGIST (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 Assembler) Primary Interpreting Resident: PRINCE CHAMPION, Resident /BR Dec 06, 2021 11:58 AM CHEST SINGLE VIEW: JESSIE CHENEY DOUGLAS N [id number] -1950 M [facility] Exm Date: DEC 06, 2021@11:58 Req Phys: JELANI SÁNCHEZ Pat Loc: [facility] ED DAYS M 1RD (Req'g Loc) Img Loc: XRAY (OOS) Service: Unknown (Case [id number] COMPLETE) CHEST SINGLE VIEW (RAD Detai led) CPT:66263 Proc Modifiers : PORTABLE EXAM Reason for Study: SOB, home covid test positive Clinical History: Report Status: Verified Date Reported: DEC 06, 2021 Date Verified: DEC 06, 2021 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 Assembler E-Sig:/ES/JESSIE CHENEY Report: Exam type: Chest x-ray [...] REQUIRED Primary Interpreting Staff: JESSIE CHENEY, RADIOLOGIST (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 Assembler) /TLC Pathology Reports: +/- 30 days of [...] MILLER LOCAL TITLE: LR SURGICAL PATHOLOGY REPORT [facility] STANDARD TITLE: PATHOLOGY REPORT DATE OF NOTE: JAN 03, 2022@10:28:01 ENTRY DATE: JAN 03, 2022@10:28:01 AUTHOR: NIURKA MILLER EXP COSIGNER: URGENCY: STATUS: COMPLETED $APHDR Reporting Lab: [facility] [CLIA# [id number]] [address] [place] [address] - - - - - - [...] automatically d ocumented from SURGERY package case #[id number] Field (#32) PRINCIPAL PRE-OP DIAGNOSIS, (#.72) OTHER [...] automatically d ocumented from SURGERY package case #[id number] Field (#34) PRINCIPAL POST-OP DIAG, (#.74) OTHER [...] Label: Lucas Meek Paperwork: Lucas Meek Cassette: [id number];..;KALYANI;.;405;[id number] Specimen is labeled: ES bx Received in formalin are several pieces of pale boyd and brown tissue, 1.2 x 0.7 cm in aggregate. Submitted entirely in 1 cassette [id number];..;KALYANI;.;405;[id number] SAW 12/15/2021 Microscopic exam: *+* MODIFIED REPORT [...] report in rendering the final pathologic diagnosis. [address] [address] CPT: 29184 /emely/ NIURKA Yeung MD Signed Jan 03, 2022@10:28 Performing Laboratory: Surgical Pathology Report Performed By: [facility] [CLIA# [id number]] [address] [place] [address] $FTR - - - - - [...] - - LUCAS MEEK STANDARD FORM 515 ID:[id number] SEX:M :1950 AGE: 71 LOC: SDM END PCP: Isatu Todd /emely/ NIURKA MILLER Staff Signed: 01/03/2022 10:28 Dec 21, 2021 11:46 AM LR SURGICAL PATHOLOGY REPORT: STEFANY MILLER [facility] LOCAL TITLE: LR SURGICAL PATHOLOGY REPORT [facility] STANDARD TITLE: PATHOLOGY REPORT DATE OF NOTE: DEC 21, 2021@11:46:59 ENTRY DATE: DEC 21, 2021@11:46:59 AUTHOR: NIURKA MILLER EXP COSIGNER: URGENCY: STATUS: COMPLETED $APHDR Reporting Lab: [facility] [CLIA# [id number]] [address] [place] [address] - - - - - - [...] automatically d ocumented from SURGERY package case #[id number] Field (#32) PRINCIPAL PRE-OP DIAGNOSIS, (#.72) OTHER [...] automatically d ocumented from SURGERY package case #[id number] Field (#34) PRINCIPAL POST-OP DIAG, (#.74) OTHER [...] Label: Lucas Meek Paperwork: Lucas Meek Cassette: [id number];..;KALYANI;.;405;[id number] Specimen is labeled: ES bx Received in formalin are several pieces of pale boyd and brown tissue, 1.2 x 0.7 cm in aggregate. Submitted entirely in 1 cassette [id number];..;KALYANI;.;405;[id number] SAW 12/15/2021 Microscopic exam: DIAGNOSIS: A. 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 Kendell long. TIARA Coombs was notified on 12/21/21. The attending pathologist who signature mansoor ears on this report has reviewed all diagnostic slides and has edited t he gross and/or microscopic portion of this report in rendering the final pathologic diagnosis. [address] [address] CPT: 37153 /emely/ NIURKA Yeung MD Signed Dec 21, 2021@11:46 Performing Laboratory: Surgical Pathology Report Performed By: [facility] [CLIA# [id number]] [address] [place] [address] $FTR - - - - - [...] - - LUCAS MEEK STANDARD FORM 515 ID:[id number] SEX:M :1950 AGE: 71 LOC: [facility] END PCP: Isatu Todd /charmaine Yeung MD Signed: 12/21/2021 11:46 Dec 06, 2021 03:30 PM LR MICROBIOLOGY REPORT: [facility] Reporting Lab: [facility] [CLIA# [id number]] [address] [place] [address] Accession [UID]: [id number] [[id number]] Receiv ed: Dec 06, 2021@16:14 Collection sample: BLOOD CUL T BOTTLE(NIRMAL/AERO)Collection date: Dec 06, 2021 15:30 Site/Specimen: BLOOD Provider: JELANI SÁNCHEZ Comment on specimen: LAC Test(s) ordered: BLOOD CULTURE ANAEROBI C....... completed: Dec 12, 2021 06:18 * BACTERIOLOGY FINAL REPORT => Dec 12, 2021 06:1 8 TECH CODE: [id number] Bacteriology Remark(s): NO GROWTH IN 5 DAYS =--=--=--=--=--=--=--=--=--=--=--=--=--= --=--=--=--=--=--=--=--=--=--=--=--=-- Performing Laboratory: Bacteriology Report Performed By: [facility] [CLIA# [id number]] [address] [place] [address] Dec 06, 2021 03:30 PM LR MICROBIOLOGY REPORT: [facility] Reporting Lab: [facility] [CLIA# [id number]] [address] [place] [address] Accession [UID]: [id number] [[id number]] Receiv ed: Dec 06, 2021@16:14 Collection sample: BLOOD CUL T BOTTLE(NIRMAL/AERO)Collection date: Dec 06, 2021 15:30 Site/Specimen: BLOOD Provider: JELANI SÁNCHEZ Comment on specimen: LAC Test(s) ordered: BLOOD CULTURE AEROBIC. ........ completed: Dec 12, 2021 06:17 * BACTERIOLOGY FINAL REPORT => Dec 12, 2021 06:1 7 TECH CODE: [id number] Bacteriology Remark(s): NO GROWTH IN 5 DAYS =--=--=--=--=--=--=--=--=--=--=--=--=--= --=--=--=--=--=--=--=--=--=--=--=--=-- Performing Laboratory: Bacteriology Report Performed By: [facility] [CLIA# [id number]] [address] [place] [address]
--- OUTSIDE RECORDS SUMMARY | 2022-01-19 08:47 | XMS_ITS ---
DAILY HOSPITALIZATION DATA [facility] Encounter Summary Created on:December 13, 2021 Patient:LUCAS EMEK Sex:Male :1950 Author Organization [facility] Address [address] [place] [id number] Support Name Relationship Address Phone YUSRA MEEK Unavailable [address] [place] [address] YUSRA MEEK Unavailable [address] [place] [facility] [place] [address] CLAY MOSLEY Unavailable Unavailable SJ SANTACRUZ Unavailable [...] MEDICARE MEDICARE PART Jun 18, PART B [id number] DO KALYANI PATIENT (WNR) (M) B 2016 13A 1 UGLAS MEDICARE MEDICARE PART Jun 18, PART A [id number] DO KALYANI PATIENT (WNR) (M) A 2016 13A 1 UGLAS MEDICARE MEDICARE PART Jun 18, PART A [id number] KALYANIDO PATIENT (WNR) (M) A 2017 VH81 2 UGLAS MEDICARE MEDICARE PART Jun 18, PART B [id number] DO KALYANI PATIENT (WNR) (M) B 2017 VH81 2 LAS UNITED MEDICARE MCR(Jun 18 [id number] Luz MEEK PATIENT HEALTHCARE ADVANTAGE NR) 2021 37 0 [facility] (WNR) Selected Encounter This section includes the information on record at [place] for the Encounter. Date/Time Encounter Type Encounter Description Reason Provider Source Dec 13, 2021 08:23 Inpatient Visit DAILY HOSPITALIZATION DATA AM [facility] Encounter Template Text not used by [...] - NONE [place] [facility] Jan 06, 2022 02:00 PM [place] [facility] Jan 10, 2022 11:30 AM AMBULATORY - MEDICINE [facility] Jan 24, 2022 08:00 AM [place] [facility] Feb 21, 2022 10:00 AM [place]BUL[place] [facility] Mar 21, [...] The data comes from all [place] treatment [facility]. Test Date/Time Test Type Test Details Facility Name October 31, 2021 07:37 AM Consult Order COMMUNITY CARE-EGD [facility] Cons Strategic [facility] Choice November 15, 2021 10:37 AM Consult Order [facility] CARE-PODIATRY Cons [facility] Dec 06, 2021 12:52 PM [place]acy [place] In[place] Order [facility] Dec 06, 2021 03:24 PM [place]acy [place] [facility] Dec 06, 2021 03:40 PM [place]acy [place] [facility] Dec 15, 2021 08:41 AM Consult Order SPEECH PATHOLOGY [place] Cons [facility] Strategic [facility]'s Choice Jan 15, 2022 10:08 PM Consult Order [facility] CARE-PALLIATIVE CARE Cons [facility] Lab Results: +/- 30 days of [...] Reference Range Comment Dec 15, 2021 [place] P4 GLU,BUN,CREAT,LYTES,CA Speci men Type: PLASMA 06:43 AM [facility] Comment: Tests performed on [employer] (405) SN:[id number] Ordering Provid er: ISATU TODD Report Released Date/Time: Dec 11, 2021 07:42 AM Reporting Lab: [facility] T [facility] [address] [facility] [address] Performing Lab: [facility] [address] [facility] [address] UREA NITROGEN 9 7-25 SODIUM 137 135-145 [...] [facility] [address] [facility] [address] Performing Lab: [facility] [address] [facility] [address] WBC 5.7 4.5-11.0 RBC 4.22 L 4.23-5.66 [...] 0-0 Dec 14, [address] [facility] CYTOGENETIC Specimen Type: ESOPHAGUS 02:59 PM [facility] FISH([place]) Comment: ~For T est: CYTOGENETIC FISH([place]) ~FISH HER 2 NUE, FFPE See full report in takokat Image display viewer/tab#LAB-Reference Ordering Provid er: NIURKA MILLER Report Released Date/Time: Dec 21, 2021 12:11 PM Reporting Lab: [facility] [address] [facility] [address] Performing Lab: [facility] CYTOGENETIC FISH([place]) comment Dec 14, [address] [facility] P4 GLU,BUN,CREAT,LYTES,CA Speci men Type: PLASMA 06:27 AM [facility] Comment: Tests performed on [employer] (405) SN:[id number] Ordering Provid er: ISATU TODD Report Released Date/Time: Dec 11, 2021 07:42 AM Reporting Lab: [facility] [address] [facility] [address] Performing Lab: [facility] [address] [facility] [address] UREA NITROGEN 10 7-25 SODIUM 137 135-145 POTASSIUM 4.0 3.5-5.0 CHLORIDE 104 100-110 CARBON DIOXIDE 25 20-30 ANION GAP 8 4-16 GLUCOSE 99 65-100 CREATININE 0.67 0.5-1.5 CALCIUM 8.2 L 8.5-10.5 eGFR(CKD-EPI 2020) >90.0 >60 Dec 14, 2021 06:27 AM [facility] Sp ecimen Type: BLOOD No comment enter ed. Ordering Provid er: ISATU TODD Report Released Date/Time: Dec 10, 2021 07:22 AM Reporting Lab: [facility] [address] [facility] [address] Performing Lab: [facility] [address] [facility] [address] WBC 6.0 4.5-11.0 RBC 4.29 4.23-5.66 HGB [...] 13, 2021 06:[address] [facility] CBC PROFILE Sp ecimen Type: BLOOD No comment enter ed. Ordering Provid er: ISATU TODD Report Released Date/Time: Dec 10, 2021 07:22 AM Reporting Lab: [facility] [address] [facility] [address] Performing Lab: [facility] [address] [facility] [address] WBC 5.6 4.5-11.0 RBC 4.28 4.23-5.66 HGB [...] 0-0 Dec 13, [address] [facility] P4 GLU,BUN,CREAT,LYTES,CA Speci men Type: PLASMA 06:34 AM [facility] Comment: Tests performed on [employer] (405) SN:[id number] Ordering Provid er: ISATU TODD Report Released Date/Time: Dec 11, 2021 07:42 AM Reporting Lab: [facility] [address] [facility] [address] Performing Lab: [facility] [address] [facility] [address] UREA NITROGEN 12 7-25 SODIUM 136 135-145 POTASSIUM 3.9 3.5-5.0 CHLORIDE 105 100-110 CARBON DIOXIDE 24 20-30 ANION GAP 7 4-16 GLUCOSE 102 H 65-100 CREATININE 0.66 0.5-1.5 CALCIUM 8.3 L 8.5-10.5 eGFR(CKD-EPI 2020) >90.0 >60 Dec 12, 2021 [facility] P[facility] GLU,BUN,CREAT,LYTES,CA Speci men Type: PLASMA 06:21 AM [facility] Comment: Tests performed on [employer] (405) SN:[id number] Ordering Provid er: ISATU TODD Report Released Date/Time: Dec 11, 2021 07:42 AM Reporting Lab: [facility] [address] [facility] [address] Performing Lab: [facility] [address] [facility] [address] UREA NITROGEN 11 7-25 SODIUM 139 135-145 POTASSIUM 4.1 3.5-5.0 CHLORIDE 107 100-110 CARBON DIOXIDE 24 20-30 ANION GAP 8 4-16 GLUCOSE 110 H 65-100 CREATININE 0.70 0.5-1.5 CALCIUM 8.3 L 8.5-10.5 eGFR(CKD-EPI 2020) >90.0 >60 Dec 12, 2021 06:21 AM [facility] CBC PROFILE Sp ecimen Type: BLOOD No comment enter ed. Ordering Provid er: ISATU TODD Report Released Date/Time: Dec 10, 2021 07:22 AM Reporting Lab: [facility] [address] [facility] [address] Performing Lab: [facility] [address] [facility] [address] WBC 5.5 4.5-11.0 RBC 4.37 4.23-5.66 HGB [...] 0.00 0-0 Dec 12, 2021 06:00 AM [employer] MAGNESIUM Sp ecimen Type: PLASMA Comment: Testin g Performed on [employer] (405) SN:[id number] Ordering Provid er: ISATU TODD Report Released Date/Time: Dec 12, 2021 08:24 AM Reporting Lab: [facility] [facility] [facility] [address] [facility] [address] Performing Lab: [facility] [place] [facility] [address] [facility] [address] MAGNESIUM 1.8 1.6-2.6 Dec 12, 2021 06:00 AM [employer] PHOSPHORUS Sp ecimen Type: PLASMA Comment: Testin g Performed on [employer] (405) SN:[id number] Ordering Provid er: ISATU TODD Report Released Date/Time: Dec 12, 2021 08:24 AM Reporting Lab: [employer] [facility] [employer] [facility] [address] [facility] [address] Performing Lab: [employer] [employer] [address] [facility] [address] PHOSPHORUS 3.1 2.5-5.0 Dec 11, 2021 06:15 AM [facility] [place] [employer] ELECTROLYTES Sp ecimen Type: PLASMA Comment: Tests performed on [employer] (405) SN:[id number] Ordering Provid er: ISATU TODD Report Released Date/Time: Dec 10, 2021 07:22 AM Reporting Lab: [employer] [facility] [employer] [address] [facility] [address] Performing Lab: [employer] [address] [facility] [address] SODIUM 137 135-145 POTASSIUM 4.3 3.5-5.0 CHLORIDE 108 100-110 CARBON DIOXIDE 20 20-30 ANION GAP 9 4-16 Dec 11, 2021 06:15 AM [facility] [employer] CBC PROFILE Sp ecimen Type: BLOOD Comment: Result s checked Ordering Provid er: ISATU TODD Report Released Date/Time: Dec 10, 2021 07:22 AM Reporting Lab: [employer] [facility] [address] [facility] [address] Performing Lab: [place] [facility] [address] [facility] [address] WBC 5.8 4.5-11.0 RBC 4.37 4.23-5.66 HGB [...] 0-0 Dec 11, 2021 06:00 AM [facility] PHOSPHORUS Sp ecimen Type: PLASMA Comment: Tests performed on [employer] (486) SN:[id number] Results checked Ordering Provid er: ISATU TODD Report Released Date/Time: Dec 11, 2021 07:44 AM Reporting Lab: [facility] [place] [facility] [address] [facility] [address] Performing Lab: [employer] [facility] TXMROC [address] [facility] [address] PHOSPHORUS 3.0 2.5-5.0 Dec 10, 2021 08:05 AM [place] [facility] MAGNESIUM Sp ecimen Type: PLASMA Comment: [place] [id number] on Dec 10, 2021@08:31 Tests performed on [employer] (405) SN:[id number] Ordering Provid er: ISATU TODD Report Released Date/Time: Dec 10, 2021 07:22 AM Reporting Lab: [place] [facility] [address] [place] [facility] [place] [place] [address] Performing Lab: [place] [facility] [address] [place] [facility] [place] [place] [address] MAGNESIUM 1.7 1.6-2.6 Dec 10, 2021 08:05 AM [place] [facility] PHOSPHORUS Sp ecimen Type: PLASMA Comment: [place] [id number] on Dec 10, 2021@08:31 Tests performed on [employer] (405) SN:[id number] Ordering Provid er: ISATU TODD Report Released Date/Time: Dec 10, 2021 07:22 AM Reporting Lab: [place] [facility] [address] [place] [facility] [place] [place] [address] Performing Lab: [place] [facility] [address] [place] [facility] [place] [place] [address] PHOSPHORUS 1.8 L 2.5-5.0 Dec 10, 2021 08:05 AM [place] UREA NITROGEN Specimen Type: PLASMA [facility] Comment: [place] [id number] on Dec 10, 2021@08:31 Tests performed on [employer] (405) SN:[id number] Ordering Provid er: ISATU TODD Report Released Date/Time: Dec 10, 2021 07:22 AM Reporting Lab: [place] [facility] [address] [place] [facility] [place] [place] [address] Performing Lab: [place] [facility] [address] [place] [facility] [place] [place] [address] UREA NITROGEN 8 7-25 Dec 10, 2021 08:05 AM [place] [facility] GLUCOSE Sp ecimen Type: PLASMA Comment: [place] [id number] on Dec 10, 2021@08:31 Tests performed on [employer] (405) SN:[id number] Ordering Provid er: ISATU TODD Report Released Date/Time: Dec 10, 2021 07:22 AM Reporting Lab: [place] [facility] [address] [facility] [address] Performing Lab: [place] [facility] [address] [facility] [address] GLUCOSE 144 H 65-100 Dec 10, 2021 08:05 AM [place] [facility] CALCIUM Sp ecimen Type: PLASMA Comment: [place] [id number] on Dec 10, 2021@08:31 Tests performed on [employer] (405) SN:[id number] Ordering Provid er: ISATU TODD Report Released Date/Time: Dec 10, 2021 07:22 AM Reporting Lab: [place] [facility] [address] [facility] [address] Performing Lab: [place] [facility] [address] [facility] [address] CALCIUM 8.3 L 8.5-10.5 Dec 10, 2021 08:05 AM [place] [facility] ELECTROLYTES Sp ecimen Type: PLASMA Comment: [place] [id number] on Dec 10, 2021@08:31 Tests performed on [employer] (405) SN:[id number] Ordering Provid er: ISATU TODD Report Released Date/Time: Dec 10, 2021 07:22 AM Reporting Lab: [place] [facility] [address] [facility] [address] Performing Lab: [place] [facility] [address] [facility] [address] SODIUM 139 135-145 POTASSIUM 3.7 3.5-5.0 CHLORIDE 107 100-110 CARBON DIOXIDE 24 20-30 ANION GAP 8 4-16 Dec 10, 2021 08:05 AM [place] [facility] CBC PROFILE Sp ecimen Type: BLOOD No comment enter ed. Ordering Provid er: ISATU TODD Report Released Date/Time: Dec 10, 2021 07:22 AM Reporting Lab: [place] [facility] [address] [facility] [address] Performing Lab: [place] [facility] [address] [facility] [address] WBC 7.0 4.5-11.0 RBC 4.54 4.23-5.66 HGB [...] PLASMA AM [facility] PANEL Comment: [place] [id number] on Dec 10, 2021@08:31 Tests performed on [employer] (405) SN:[id number] Ordering Provid er: ISATU TODD Report Released Date/Time: Dec 10, 2021 07:22 AM Reporting Lab: [facility] [address] [facility] [address] Performing Lab: [facility] [address] [facility] [address] CREATININE 0.78 0.5-1.5 eGFR(CKD-EPI 2020) >90.0 >60 Dec 09, 2021 06:46 AM [place] [facility] MAGNESIUM Sp ecimen Type: PLASMA Comment: Tests performed on [employer] (405) SN:[id number] Ordering Provid er: ISATU TODD Report Released Date/Time: Dec 08, 2021 10:23 AM Reporting Lab: [place] [facility] [address] [facility] [address] Performing Lab: [place] [facility] [address] [facility] [address] MAGNESIUM 1.6 1.6-2.6 Dec 09, [address] [facility] P4 GLU,BUN,CREAT,LYTES,CA Speci men Type: PLASMA 06:46 AM [facility] Comment: Tests performed on [employer] (405) SN:[id number] Ordering Provid er: ISATU TODD Report Released Date/Time: Dec 08, 2021 05:00 PM Reporting Lab: [facility] [address] [facility] [address] Performing Lab: [facility] [address] [facility] [address] UREA NITROGEN 6 L 7-25 SODIUM 134 [...] [facility] [address] [facility] [address] Performing Lab: [facility] [address] [facility] [address] WBC 7.1 4.5-11.0 RBC 4.40 4.23-5.66 HGB [...] Type: PLASMA Comment: Testin g Performed on [employer] (405) SN:[id number] Ordering Provid er: ISATU TODD Report Released Date/Time: Dec 07, 2021 10:32 AM Reporting Lab: [facility] [address] [facility] [address] Performing Lab: [facility] [address] [facility] [address] MAGNESIUM 1.5 L 1.6-2.6 Dec 08, 2021 06:39 AM [facility] CBC PROFILE Sp ecimen Type: BLOOD No comment enter ed. Ordering Provid er: ISATU TODD Report Released Date/Time: Dec 07, 2021 10:32 AM Reporting Lab: [facility] [address] [facility] [address] Performing Lab: [facility] [address] [facility] [address] WBC 8.4 4.5-11.0 RBC 4.75 4.23-5.66 HGB [...] NRBC 0.00 0-0 Dec 08, 2021 [facility] P4 GLU,BUN,CREAT,LYTES,CA Speci men Type: PLASMA 06:39 AM [facility] Comment: Testin g Performed on [employer] (405) SN:[id number] Ordering Provid er: ISATU TODD Report Released Date/Time: Dec 07, 2021 10:32 AM Reporting Lab: [facility] [address] [facility] [address] Performing Lab: [facility] [address] [facility] [address] UREA NITROGEN 6 L 7-25 SODIUM 136 135-145 POTASSIUM 3.3 L 3.5-5.0 CHLORIDE 104 100-110 CARBON DIOXIDE 22 20-30 ANION GAP 10 4-16 GLUCOSE 133 H 65-100 CREATININE 0.76 0.5-1.5 CALCIUM 8.4 L 8.5-10.5 eGFR(CKD-EPI 2020) >90.0 >60 Dec 07, 2021 [facility] P4 GLU,BUN,CREAT,LYTES,CA Speci men Type: PLASMA 06:42 AM [facility] Comment: Tests performed on [employer] (405) SN:[id number] Ordering Provid er: PORFIRIO WALTERS Report Released Date/Time: Dec 06, 2021 06:57 PM Reporting Lab: [employer] [facility] [address] [facility] [address] Performing Lab: [facility] [address] [facility] [address] UREA NITROGEN 9 7-25 SODIUM 135 135-145 POTASSIUM 3.5 3.5-5.0 CHLORIDE 103 100-110 CARBON DIOXIDE 22 20-30 ANION GAP 10 4-16 GLUCOSE 92 65-100 CREATININE 0.73 0.5-1.5 CALCIUM 8.0 L 8.5-10.5 eGFR(CKD-EPI 2020) >90.0 >60 Dec 07, 2021 06:42 [place] LIVER PROFILE Specimen Typ e: PLASMA AM VAOC Comment: Tests performed on [employer] (405) SN:[id number] Ordering Provid er: PORFIRIO WALTERS Report Released Date/Time: Dec 06, 2021 06:57 PM Reporting Lab: [facility] [address] [facility] [address] Performing Lab: [facility] [address] [facility] [address] PROTEIN, TOTAL 5.7 L 6.0-8.5 ALBUMIN 2.4 L 3.2-5.0 BILIRUBIN, TOTAL 0.4 0.2-1.2 ALKALINE PHOSPHATASE 109 40-150 ALT(SGPT) 10 7-52 AST(SGOT) 15 5-34 FIB-4 SCORE 1.92 <2.67 Dec 07, 2021 06:42 AM [facility] [facility] CBC PROFILE Specimen Type: BLOOD [facility] No comment enter ed. Ordering Provid er: PORFIRIO WALTERS Report Released Date/Time: Dec 06, 2021 06:57 PM Reporting Lab: [facility] [address] [facility] [address] Performing Lab: [facility] [address] [facility] [address] WBC 5.7 4.5-11.0 RBC 4.15 L 4.23-5.66 [...] [facility]AM[facility] %) AUTOMATED Comment: Tests performed on [employer] (405) SN:[id number] Ordering Provid er: ISATU TODD Report Released Date/Time: Dec 07, 2021 10:28 AM Reporting Lab: [place] [facility] [address] [facility] [address] Performing Lab: [place] [facility] [address] [facility] [address] RETICULOCYTES (%) AUTOMATED 1.23 0. 6-2.0 RETICULOCYTES (ABS) AUTOMATED 0.052 0.030-0.090 Dec 06, 2021 09:45 [place] MRSA SURVL NARES Specimen Ty pe: NARES PM [facility] DNA No comment enter ed. Ordering Provid er: ALVARO VARGHESE Report Released Date/Time: Dec 07, 2021 02:20 AM Reporting Lab: [place] [facility] [address] [facility] [address] Performing Lab: [place] [facility] [address] [facility] [address] MRSA SURVL NARES DNA NEGATIVE NEGATIVE Dec 06, 2021 06:00 [place] URINALYSIS W/REFLEX TO Speci men Type: URINE PM [facility] CULTURE No comment enter ed. Ordering Provid er: JELANI SÁNCHEZ Report Released Date/Time: Dec 06, 2021 11:57 AM Reporting Lab: [place] [facility] [address] [facility] [address] Performing Lab: [place] [facility] [address] [facility] [address] URINE COLOR Arlin YELLOW SPECIFIC GRAVITY 1.029 [...] 21, [place]IANT Comment: https://www.cdc.gov/coronavirus/2019-ncov/cases-updates/variant- surveillance/variant-info.html The [employer] SARS CoV 2 [employer] Research Assay-GX is a next-generation sequencing (NGS) assa 2021 [facility] SEQUENCING y that determine s the complete genome sequence of the SARS-CoV-2 virus. The assay contains variant-tolerant primers to broaden and improve the coverage for variant detection and increase the sensitivity 12:00 [facility] PNL(WH) of the panel to enable detection from lower viral titer samples. The assay is run on the [employer] Sequencer, which performs automated library preparation, sequencing, analysis, and reporting. PM The sequence an alysis includes determination of viral phylogenetic lineage by comparison to the reference strain Wuhan-Hu-1, GenBank: [id number]. Sequence determination may not be possible owing [...] determined by the [facility] Molecular Diagnostics Laboratory, which is certified under the Clinical Laboratory Improveme nt Amendments (C MARCO) as qualified to perform high complexity clinical laboratory testing. This test is validated for clinical use at [facility] and should not be regarded as investigational or for research. The FDA does not require this test to go through premarket FDA review, and therefore it has not been cleared or approved by the FDA. This report was reviewed and approved by the on-service pathologist. Ordering Provid er: JELANI SÁNCHEZ Report Released Date/Time: Dec 06, 2021 01:13 PM Reporting Lab: [facility] [address] [facility] [address] Performing Lab: [facility] [address] [facility] [address] SARS-CoV-2 CLADE() 22C (OMICRON) SARS-CoV-2 LINEAGE() BA.2.12.1 Dec 06, 2021 12:00 [facility] COVID-19 AG SCREEN Specimen Type: NASAL CAVITY PM [facility] PANEL [employer](405) Comment: Testi ng Performed By: Mike Briscoe Ordering Provid er: JELANI SÁNCHEZ Report Released Date/Time: Dec 08, 2021 08:23 AM Reporting Lab: [facility] [address] [facility] [address] Performing Lab: [facility] [address] [facility] [address] COVID-19 AG SCRN(wrj BINAX) POSITIVE HH NE G Dec 06, 2021 12:00 PM [facility] TROPONIN II Sp ecimen Type: PLASMA Comment: Tests performed on [employer] (405) SN:[id number] Ordering Provid er: JELANI SÁNCHEZ Report Released Date/Time: Dec 06, 2021 11:57 AM Reporting Lab: [facility] [address] [facility] [address] Performing Lab: [facility] [address] [facility] [address] TROPONIN II 0.03 0.00-0.29 Dec 06, 2021 [employer] [place] P4 GLU,BUN,CREAT,LYTES,CA Speci men Type: PLASMA 12:00 PM [facility] Comment: Testin g Performed on [employer] (405) SN:[id number] Ordering Provid er: JELANI SÁNCHEZ Report Released Date/Time: Dec 06, 2021 11:57 AM Reporting Lab: [place] [place] [facility] [address] [facility] [address] Performing Lab: [place] [place] [facility] [address] [facility] [address] UREA NITROGEN 13 7-25 SODIUM 138 135-145 POTASSIUM 3.8 3.5-5.0 CHLORIDE 103 100-110 CARBON DIOXIDE 23 20-30 ANION GAP 12 4-16 GLUCOSE 105 H 65-100 CREATININE 0.90 0.5-1.5 CALCIUM 8.7 8.5-10.5 eGFR(CKD-EPI 2020) >90.0 >60 Dec 06, 2021 12:[address] [facility] LIVER PROFILE Sp ecimen Type: PLASMA Comment: Testin g Performed on [employer] Worker (405) [id number] Ordering Provid er: JELANI SÁNCHEZ Report Released Date/Time: Dec 06, 2021 11:57 AM Reporting Lab: [facility] [address] [facility] [address] Performing Lab: [facility] [address] [facility] [address] PROTEIN, TOTAL 6.6 6.0-8.5 ALBUMIN 2.8 L 3.2-5.0 BILIRUBIN, TOTAL 0.6 0.2-1.2 ALKALINE PHOSPHATASE 134 40-150 ALT(SGPT) 13 7-52 AST(SGOT) 18 5-34 FIB-4 SCORE 1.94 <2.67 Dec 06, [address] [facility] COVID-19+FLU/RSV DIAGNOSTIC Spe cimen Type: NASOPHARYNX 12:00 PM [facility] PANEL(405) Comment: Tests performed on [employer] Gen[employer]pert (405) Critical results called to and read back by: ALESHIA WILKINSON RN 12/06/21 @ 1312 Ordering Provid er: JELANI SÁNCHEZ Report Released Date/Time: Dec 06, 2021 11:57 AM Reporting Lab: [facility] [address] [facility] [address] Performing Lab: [facility] [address] [facility] [address] FLU A(PCR) NEGATIVE NEGATIVE FLU B(PCR) NEGATIVE NEGATIVE RSV(PCR) NEGATIVE NEGATIVE COVID-19([id number]) DETECTED HH NO T DETECTED Dec 06, 2021 12:[address] [facility] BNP(P) Sp ecimen Type: PLASMA Comment: Tests performed on Pham Tailings Worker (405) [id number] Ordering Provid er: JELANI SÁNCHEZ Report Released Date/Time: Dec 06, 2021 11:57 AM Reporting Lab: [facility] [address] [facility] [address] Performing Lab: [facility] [address] [facility] [address] BNP(P) 224.8 H 10-100 Dec 06, 2021 12:00 PM [facility] CBC PROFILE Sp ecimen Type: BLOOD No comment enter ed. Ordering Provid er: JELANI SÁNCHEZ Report Released Date/Time: Dec 06, 2021 11:57 AM Reporting Lab: [facility] [address] [facility] [address] Performing Lab[facility] [address] [facility] [address] WBC 7.2 4.5-11.0 RBC 4.86 4.23-5.66 HGB [...] WHITE 2021 09:20 /min mm[Hg] RIVER PM [facility] Dec 13, 97.9 F 82 108/62 20 /min 96 % 2021 03:27 /min mm[Hg] RIVER PM T [facility] Dec 13, 0 WHITE 2021 02:44 RIVER PM T [facility] Dec 13, 0 WHITE 2021 08:15 RIVER AM [facility] Dec 13, 0 WHITE 2021 05:18 RIVER AM [facility] Social History: Smoking Status (Most [...] took place. Date/Time Smoking Status/Tobacco Use Comment [facility] Apr 01, 2020 01:16 PM [...] TOBACCO USE IN PAST YEAR [facility] DOYLE [facility] May 01, 2016 11:19 AM QUIT TOBACCO USE IN PAST YEAR CAREY DOYLE [place] [facility] Mar 16, 2016 12:50 PM V1-PT DECLINES REF TO TOBACCO CAREY DOYLE [facility] CESS PRGM Mar 16, 2016 12:50 PM V1-PT THINKING ABOUT QUIT CAREY DOYLE [facility] TOBACCO USE Aug 12, 2015 08:48 AM CURRENT SMOKER CAREY Yates [facility] Radiology Reports: +/- 30 days [...] W/WO CONTRAST: MARYELLEN LONG LUCAS LARES N [id number] -1950 [facility] Exm Date: DEC 13, 2021@12:57 Req Phys: ISATU TODD Loc: OP Unknown/0 12-15-2021@13:20 Img Loc: MRI IMAGING (OOS) Service: ZZGENERAL MEDICINE (Case [id number] COMPLETE) MRI ABDOMEN W/WO CONTRAST (M RI Detailed) CPT:35701 Reason for Study: further characterization of a [...] new lyphadenopathy REQUESTING MD: Isatu Todd PAGER: [phone] PHONE: [phone] Weight: 232.2 lb [105.32 kg] (12/12/2021 05:00) [...] patient will need to arrange for a jeep driver to take him/her home after the [...] 2021 Date Verified: DEC 15, 2021 Manager Pest E-Sig:/ES/MARYELLEN LONG Report: MRI ABDOMEN W/WO CONTRAST [...] MALIGNANCY Primary Interpreting Staff: Staff AMELIA THOMAS (Manager Pest) / Dec 10, 2021 09:[address] ABDOMEN & PELVIS: [facility] L[facility]EEK N [id number] -1950 M SERVICE [facility] Ex Date: DEC 10, 2021@09:30 Req Phys: ISATU TODD Loc: 1S MED/12-10@10:57 Img Loc: CT SCAN (OOS) Service: [facility] MEDICINE (Case [id number] COMPLETE) CT ABD & PELVIS WITHOUT CONT RAST (CT Detailed) CPT:51392 Reason for Study: 71 yo male with [...] INDEX - NO HEIGHTS FOUND Pager number: [phone] STAT orders MUST be call ed to RADIOLOGY [phone] to speak to the appropriate conservation technician. Report Status: Verified Date Reported: DEC 10, 2021 Date Verified: DEC 10, 2021 Manager Pest E-Sig: Report: EXAM: CT abdomen and pelvis [...] ph nodes. READING PHYSICIAN: Ramone Munoz D.O. [phone] 12/10/2021 10:55 EDT [facility] National Teleradiology Program [phone] (For Medical Practitioner Use Only ) [address] [facility], [facility] [address] [place] [address] Attention Patients / Veterans: If you have ques tions or concerns about these test results, please contact your o rdering provider or primary care team. Primary Diagnostic Code: SIGNIFICANT ABNORMALIT Y, ATTN NEEDED Primary Interpreting Staff: RADIOLOGY,OUTSIDE SERVICE, Staff Physician / Dec 09, 2021 07:34 AM BASW (MODIFIED): JESSIE CHENEY TARA ER JCT LUCAS MEEK N [id number] -1950 [facility] Exm Date: DEC 09, 2021@07:34 Req Phys: ISATU TODD Josseline Loc: 1S MED/12-09@11:26 Img Loc: XRAY (OOS) Service: [facility] MEDICINE (Case [id number] COMPLETE) BASW (MODIFIED) (RAD Detaile d) CPT:18258 Contrast Media : Barium Reason for Study: dysphagia ?esophageal spasm Clinical History: Report Status: Verified Date Reported: DEC 09, 2021 Date Verified: DEC 09, 2021 Manager Pest E-Sig:/ES/JESSIE CHENEY Report: BASW (MODIFIED) , 12/09/2021 [...] Primary Interpreting Staff: JESSIE CHENEY, RADIOLOGIST (Manager Pest) /TLC Dec 06, 2021 12:[address] CHEST (INCLUDES ADRENALS): [facility] LUCAS MEEK N [id number] -1950 [facility] Exm Date: DEC 06, 2021@12:59 Req Phys: GONZALO,JELANI J Pat Loc: [facility] ED DAYS M 1RD (Req'g Loc) Img Loc: CT SCAN (OOS) Service: Unknown (Case [id number] COMPLETE) CT THORAX W/O CONT (CT Detai led) CPT:41250 Reason for Study: Opacification right chest Clinical History: No contrast allergy BUN: 13 (12/06/21 12:00) CREATI: 0.90 (12/06/21 12:00) eGFR 05/16/21 09:43 52 L Weight: 232.6 lb [105.51 kg] (12/06/2021 11:40) BODY MASS INDEX - NO HEIGHTS FOUND Pager number: [phone] STAT orders MUST be called t o RADIOLOGY [phone] to speak to the appropriate conservation technician. Indications - Other: Opacification right chest, covid positive, lung cancer histo Report Status: Verified Date Reported: DEC 06, 2021 Date Verified: DEC 06, 2021 Manager Pest E-Sig:/ES/JESSIE CHENEY Report: CT THORAX W/O CONT [...] Primary Interpreting Staff: JESSIE CHENEY, RADIOLOGIST (Manager Pest) Primary Interpreting Resident: PRINCE CHAMPION, Resident /BR Dec 06, 2021 11:58 AM CHEST SINGLE VIEW: JESSIE CHENEY DOUGLAS N [id number] -1950 M [facility] Exm Date: DEC 06, 2021@11:58 Req Phys: JELANI SÁNCHEZ Pat Loc: [facility] ED DAYS M 1RD (Req'g Loc) Img Loc: XRAY (OOS) Service: Unknown (Case [id number] COMPLETE) CHEST SINGLE VIEW (RAD Detai led) CPT:99320 Proc Modifiers : PORTABLE EXAM Reason for Study: SOB, home covid test positive Clinical History: Report Status: Verified Date Reported: DEC 06, 2021 Date Verified: DEC 06, 2021 Manager Pest E-Sig:/ES/JESSIE CHENEY Report: Exam type: Chest x-ray [...] Primary Interpreting Staff: JESSIE CHENEY, RADIOLOGIST (Manager Pest) /TLC Pathology Reports: +/- 30 days of [...] LOCAL TITLE: LR SURGICAL PATHOLOGY REPORT [facility] STANDARD TITLE: PATHOLOGY REPORT DATE OF NOTE: JAN 03, 2022@10:28:01 ENTRY DATE: JAN 03, 2022@10:28:01 AUTHOR: NIURKA MILLER EXP COSIGNER: URGENCY: STATUS: COMPLETED $APHDR Reporting Lab: [facility] MONTOYA [facility] [CLIA# [id number]] [address] [place] [address] - - - - - - [...] automatically d ocumented from SURGERY package case #[id number] Field (#32) PRINCIPAL PRE-OP DIAGNOSIS, (#.72) OTHER [...] automatically d ocumented from SURGERY package case #[id number] Field (#34) PRINCIPAL POST-OP DIAG, (#.74) OTHER [...] Label: Lucas Meek Paperwork: Lucas Meek Cassette: [id number];..;KALYANI;.;405;[id number] Specimen is labeled: ES bx Received in formalin are several pieces of pale boyd and brown tissue, 1.2 x 0.7 cm in aggregate. Submitted entirely in 1 cassette [id number];..;KALYANI;.;405;[id number] SAW 12/15/2021 Microscopic exam: *+* MODIFIED REPORT [...] in rendering the final pathologic diagnosis. [address] [address] CPT: 67539 /emely/ NIURKA Yeung MD Signed Jan 03, 2022@10:28 Performing Laboratory: Surgical Pathology Report Performed By: CAREY MONTOYA [facility] [CLIA# [id number]] [address] [place] [address] $FTR - - - - - [...] - - LUCAS MEEK STANDARD FORM 515 ID:[id number] SEX:M :1950 AGE: 71 LOC: SDM END PCP: Isatu Todd /emely/ NIURKA MILLER Staff Signed: 01/03/2022 10:28 Dec 21, 2021 11:46 AM LR SURGICAL PATHOLOGY REPORT: STEFANY MILLER [facility] LOCAL TITLE: LR SURGICAL PATHOLOGY REPORT [facility] STANDARD TITLE: PATHOLOGY REPORT DATE OF NOTE: DEC 21, 2021@11:46:59 ENTRY DATE: DEC 21, 2021@11:46:59 AUTHOR: NIURKA MILLER EXP COSIGNER: URGENCY: STATUS: COMPLETED $APHDR Reporting Lab: [facility] [CLIA# [id number]] [address] [place] [address] - - - - - - [...] automatically d ocumented from SURGERY package case #[id number] Field (#32) PRINCIPAL PRE-OP DIAGNOSIS, (#.72) OTHER [...] automatically d ocumented from SURGERY package case #[id number] Field (#34) PRINCIPAL POST-OP DIAG, (#.74) OTHER [...] Label: Lucas Meek Paperwork: Lucas Meek Cassette: [id number];..;KALYANI;.;405;[phone] Specimen is labeled: ES bx Received in formalin are several pieces of pale boyd and brown tissue, 1.2 x 0.7 cm in aggregate. Submitted entirely in 1 cassette [id number];..;KALYANI;.;405;[id number] SAW 12/15/2021 Microscopic exam: DIAGNOSIS: A. 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 Kendell long. TIARA Coombs was notified on 12/21/21. The attending pathologist who signature mansoor ears on this report has reviewed all diagnostic slides and has edited t he gross and/or microscopic portion of this report in rendering the final pathologic diagnosis. [address] [address] CPT: 46715 /emely/ NIURKA Yeung MD Signed Dec 21, 2021@11:46 Performing Laboratory: Surgical Pathology Report Performed By: [facility] [CLIA# [id number]] [address] [place] [address] $FTR - - - - - [...] - - LUCAS MEEK STANDARD FORM 515 ID:[id number] SEX:M :1950 AGE: 71 LOC: [facility] END PCP: Isatu Todd /charmaine Yeung MD Signed: 12/21/2021 11:46 Dec 06, 2021 03:30 PM LR MICROBIOLOGY REPORT: [facility] Reporting Lab: [facility] [CLIA# [id number]] [address] [place] [address] Accession [UID]: [id number] [[id number]] Receiv ed: Dec 06, 2021@16:14 Collection sample: BLOOD CUL T BOTTLE(NIRMAL/AERO)Collection date: Dec 06, 2021 15:30 Site/Specimen: BLOOD Provider: JELANI SÁNCHEZ Comment on specimen: LAC Test(s) ordered: BLOOD CULTURE ANAEROBI C....... completed: Dec 12, 2021 06:18 * BACTERIOLOGY FINAL REPORT => Dec 12, 2021 06:1 8 TECH CODE: [id number] Bacteriology Remark(s): NO GROWTH IN 5 DAYS =--=--=--=--=--=--=--=--=--=--=--=--=--= --=--=--=--=--=--=--=--=--=--=--=--=-- Performing Laboratory: Bacteriology Report Performed By: [facility] [CLIA# [id number]] [address] [place] [address] Dec 06, 2021 03:30 PM LR MICROBIOLOGY REPORT: [facility] Reporting Lab: [facility] [CLIA# [id number]] [address] [place] [address] Accession [UID]: [id number] [[id number]] Receiv ed: Dec 06, 2021@16:14 Collection sample: BLOOD CUL T BOTTLE(NIRMAL/AERO)Collection date: Dec 06, 2021 15:30 Site/Specimen: BLOOD Provider: JELANI SÁNCHEZ Comment on specimen: LAC Test(s) ordered: BLOOD CULTURE AEROBIC. ........ completed: Dec 12, 2021 06:17 * BACTERIOLOGY FINAL REPORT => Dec 12, 2021 06:1 7 TECH CODE: [id number] Bacteriology Remark(s): NO GROWTH IN 5 DAYS =--=--=--=--=--=--=--=--=--=--=--=--=--= --=--=--=--=--=--=--=--=--=--=--=--=-- Performing Laboratory: Bacteriology Report Performed By: [facility] [CLIA# [id number]] [address] [place] [address]
--- OUTSIDE RECORDS SUMMARY | 2022-01-19 08:48 | XMS_ITS ---
DAILY HOSPITALIZATION DATA [facility] Encounter Summary Created on:December 13, 2021 Patient:LUCAS MEEK Sex:Male :1950 Author Organization [facility] Address [address] [place] [id number] Support Name Relationship Address Phone YUSRA MEEK Unavailable [address] [place] [address] YUSRA MEEK Unavailable [address] [place] [facility] [place] [place] [address] CLAY MOSLEY Unavailable Unavailable SJ SANTACRUZ Unavailable [...] MEDICARE MEDICARE PART Jun 18, PART B [id number] MEEK DO PATIENT (WNR) (M) B 2016 13A 1 UGLAS MEDICARE MEDICARE PART Jun 18, PART A [id number] MEEK DO PATIENT (WNR) (M) A 2017 VH81 2 U[place]AS MEDICARE MEDICARE PART Jun 18, PART B [id number] KALYANIDO PATIENT (WNR) (M) B 2017 VH81 2 [place] MEDICARE MEDICARE PART Jun 18, PART A [id number] DO KALYANI PATIENT (WNR) (M) A 2016 13A 1 U[place]AS UNITED MEDICARE MCR(Jun 18 [id number] Luz MEEK PATIENT HEALTHCARE ADVANTAGE NR) 2021 37 0 UGLAS MCR (WNR) Selected Encounter This section includes the information on record at PA for the Encounter. Date/Time Encounter Type Encounter Description Reason Provider Source Dec 13, 2021 02:44 Inpatient Visit DAILY HOSPITALIZATION DATA PM IHE [...] AM AMBUL[place]ORY [place] NONE [place] [facility] Jan 06, 2022 02:00 PM [place] [facility] Jan 10, 2022 11:30 AM AM[facility]ATORY - MEDICINE [facility] Jan 24, 2022 08:00 [place] [facility] Feb 21, 2022 10:00 AM [place]BUL[place] - [place] [facility] Mar 21, 2022 10:30 AM [...] The data comes from all PA treatment [facility]. Test Date/Time Test Type Test Details Facility Name October 31, 2021 07:37 AM Consult Order [facility]ITY [facility]ARE-EGD [facility] Cons Oncology Technician's Choice November 15, 2021 10:37 AM Consult Order [facility] CARE-PODIATRY Cons Oncology Technician's Choice Dec 06, 2021 12:52 PM [...] [place] OUTPATIENT Cons [facility] Oncology Technician's Choice Jan 15, 2022 10:08 PM Consult Order [facility] CARE-PALLIATIVE CARE Cons Oncology Technician's Choice Lab Results: +/- 30 days [...] Reference Range Comment Dec 15, 2021 [place] P4 GLU,BUN,CREAT,LYTES,CA Speci men Type: PLASMA 06:43 AM [facility] Comment: Tests performed on [employer] (405) SN:[id number] Ordering Provid er: ISATU TODD Report Released Date/Time: Dec 11, 2021 07:42 AM Reporting Lab: [facility] T [facility] [address] [facility] [address] Performing Lab: [facility] [address] [facility] [address] UREA NITROGEN 9 7-25 SODIUM 137 135-145 POTASSIUM 3.8 3.5-5.0 CHLORIDE 105 100-110 CARBON DIOXIDE 26 20-30 ANION GAP 6 4-16 GLUCOSE 102 H 65-100 CREATININE 0.64 0.5-1.5 CALCIUM 8.1 L 8.5-10.5 eGFR(CKD-EPI 2020) >90.0 >60 Dec 15, 2021 06:43 AM [facility] CBC PROFILE Sp ecimen Type: BLOOD No comment enter ed. Ordering Provid er: ISATU TODD Report Released Date/Time: Dec 10, 2021 07:22 AM Reporting Lab: [facility] [address] [facility] [address] Performing Lab: [facility] [address] [facility] [address] WBC 5.7 4.5-11.0 RBC 4.22 L 4.23-5.66 [...] NRBC 0.00 0-0 Dec 14, 2021 [facility] CYTOGENETIC Specimen Type: ESOPHAGUS 02:59 PM [facility] FISH([facility]) Comment: ~For T est: CYTOGENETIC FISH([facility]) ~FISH HER 2 NUE, FFPE See full report in CloudByte Image display viewer/tab#LAB-Reference Ordering Provid er: NIURKA MILLER Report Released Date/Time: Dec 21, 2021 12:11 PM Reporting Lab: [facility] [address] [facility] [address] Performing Lab: [facility] CYTOGENETIC FISH([facility]) comment Dec 14, 2021 [facility] P4 GLU,BUN,CREAT,LYTES,CA Speci men Type: PLASMA 06:27 AM [facility] Comment: Tests performed on [employer] (405) SN:[id number] Ordering Provid er: ISATU TODD Report Released Date/Time: Dec 11, 2021 07:42 AM Reporting Lab: [facility] [address] [facility] [address] Performing Lab: [facility] [address] [facility] [address] UREA NITROGEN 10 7-25 SODIUM 137 135-145 [...] Lab: [facility] [address] [facility] [address] Performing Lab: [facility] [address] [facility] [address] WBC 6.0 4.5-11.0 RBC 4.29 4.23-5.66 HGB [...] NRBC 0.00 0-0 Dec 13, 2021 [facility] P4 GLU,BUN,CREAT,LYTES,CA Speci men Type: PLASMA 06:34 AM [facility] Comment: Tests performed on [employer] (405) SN:[id number] Ordering Provid er: ISATU TODD Report Released Date/Time: Dec 11, 2021 07:42 AM Reporting Lab: [facility] [address] [facility] [address] Performing Lab: [facility] [address] [facility] [address] UREA NITROGEN 12 7-25 SODIUM 136 135-145 [...] Lab: [facility] [address] [facility] [address] Performing Lab: [facility] [address] [facility] [address] WBC 5.6 4.5-11.0 RBC 4.28 4.23-5.66 HGB [...] NRBC 0.00 0-0 Dec 12, 2021 [facility] P4 GLU,BUN,CREAT,LYTES,CA Speci men Type: PLASMA 06:21 AM [facility] Comment: Tests performed on [employer] (405) SN:[id number] Ordering Provid er: ISATU TODD Report Released Date/Time: Dec 11, 2021 07:42 AM Reporting Lab: [facility] [address] [facility] [address] Performing Lab: [facility] [address] [facility] [address] UREA NITROGEN 11 7-25 SODIUM 139 135-145 [...] Dec 10, 2021 07:22 AM Reporting Lab: [facility] [address] [facility] [address] Performing Lab: [facility] [address] [facility] [address] WBC 5.5 4.5-11.0 RBC 4.37 4.23-5.66 HGB [...] 0.00 0-0 Dec 12, 2021 06:00 AM [facility] MAGNESIUM Sp ecimen Type: PLASMA Comment: Testin g Performed on [employer] (405) SN:[id number] Ordering Provid er: ISATU TODD Report Released Date/Time: Dec 12, 2021 08:24 AM Reporting Lab: [place] [facility] [address] [facility] [address] Performing Lab: [employer] [place] [employer] [address] [facility] [address] MAGNESIUM 1.8 1.6-2.6 Dec 12, 2021 06:00 AM [employer] PHOSPHORUS Sp ecimen Type: PLASMA Comment: Testin g Performed on [employer] (405) SN:[id number] Ordering Provid er: ISATU TODD Report Released Date/Time: Dec 12, 2021 08:24 AM Reporting Lab: [place] [employer] [facility] [address] [facility] [address] Performing Lab: [place] [employer] [address] [facility] [address] PHOSPHORUS 3.1 2.5-5.0 Dec 11, 2021 06:15 AM [employer] [place] [employer] ELECTROLYTES Sp ecimen Type: PLASMA Comment: Tests performed on [employer] (405) SN:[id number] Ordering Provid er: ISATU TODD Report Released Date/Time: Dec 10, 2021 07:22 AM Reporting Lab: [place] [employer] [facility] [address] [facility] [address] Performing Lab: [place] [employer] [facility] [address] [facility] [address] SODIUM 137 135-145 POTASSIUM 4.3 3.5-5.0 CHLORIDE 108 100-110 CARBON DIOXIDE 20 20-30 ANION GAP 9 4-16 Dec 11, 2021 06:15 AM [place] [employer] [facility] CBC PROFILE Sp ecimen Type: BLOOD Comment: Result s checked Ordering Provid er: ISATU TODD Report Released Date/Time: Dec 10, 2021 07:22 AM Reporting Lab: [place] [employer] [facility] [address] [facility] [address] Performing Lab: [place] [facility] [address] [facility] [address] WBC 5.8 4.5-11.0 RBC 4.37 4.23-5.66 HGB [...] 0.00 0-0 Dec 11, 2021 06:00 AM [facility] PHOSPHORUS Sp ecimen Type: PLASMA Comment: Tests performed on [employer] (967) SN:[id number] Results checked Ordering Provid er: ISATU TODD Report Released Date/Time: Dec 11, 2021 07:44 AM Reporting Lab: [facility] [address] [facility] [address] Performing Lab: [place] [facility] [address] [facility] [address] PHOSPHORUS 3.0 2.5-5.0 Dec 10, 2021 08:05 AM [place] [facility] MAGNESIUM Sp ecimen Type: PLASMA Comment: [place] [id number] on Dec 10, 2021@08:31 Tests performed on [employer] (405) SN:[id number] Ordering Provid er: ISATU TODD Report Released Date/Time: Dec 10, 2021 07:22 AM Reporting Lab: [place] [facility] [address] [facility] [place] [address] Performing Lab: [place] [facility] [address] [facility] [place] [address] MAGNESIUM 1.7 1.6-2.6 Dec 10, 2021 08:05 AM [place] [facility] PHOSPHORUS Sp ecimen Type: PLASMA Comment: [place] [id number] on Dec 10, 2021@08:31 Tests performed on [employer] (405) SN:[id number] Ordering Provid er: ISATU TODD Report Released Date/Time: Dec 10, 2021 07:22 AM Reporting Lab: [place] [facility] [address] [facility] [place] [address] Performing Lab: [place] [facility] [address] [facility] [place] [address] PHOSPHORUS 1.8 L 2.5-5.0 Dec 10, 2021 08:05 AM [place] UREA NITROGEN Specimen Type: PLASMA [facility] Comment: [place] [id number] on Dec 10, 2021@08:31 Tests performed on [employer] (405) SN:[id number] Ordering Provid er: ISATU TODD Report Released Date/Time: Dec 10, 2021 07:22 AM Reporting Lab: [place] [facility] [address] [facility] [place] [address] Performing Lab: [place] [facility] [address] [facility] [place] [address] UREA NITROGEN 8 7-25 Dec 10, 2021 08:05 AM [place] [facility] ELECTROLYTES Sp ecimen Type: PLASMA Comment: [place] [id number] on Dec 10, 2021@08:31 Tests performed on [employer] (405) SN:[id number] Ordering Provid er: ISATU TODD Report Released Date/Time: Dec 10, 2021 07:22 AM Reporting Lab: [place] [facility] [address] [facility] [address] Performing Lab: [place] [facility] [address] [facility] [address] SODIUM 139 135-145 POTASSIUM 3.7 3.5-5.0 CHLORIDE 107 100-110 CARBON DIOXIDE 24 20-30 ANION GAP 8 4-16 Dec 10, 2021 08:05 AM [place] [facility] GLUCOSE Sp ecimen Type: PLASMA Comment: [place] [id number] on Dec 10, 2021@08:31 Tests performed on [employer] (405) SN:[id number] Ordering Provid er: ISATU TODD Report Released Date/Time: Dec 10, 2021 07:22 AM Reporting Lab: [place] [facility] [address] [facility] [address] Performing Lab: [place] [facility] [address] [facility] [address] GLUCOSE 144 H 65-100 Dec 10, 2021 08:05 AM [place] [facility] CALCIUM Sp ecimen Type: PLASMA Comment: [place] [id number] on Dec 10, 2021@08:31 Tests performed on [employer] (405) SN:[id number] Ordering Provid er: ISATU TODD Report Released Date/Time: Dec 10, 2021 07:22 AM Reporting Lab: [place] [facility] [address] [facility] [address] Performing Lab: [place] [facility] [address] [facility] [address] CALCIUM 8.3 L 8.5-10.5 Dec 10, 2021 08:05 AM [place] [facility] CBC PROFILE Sp ecimen Type: BLOOD No comment enter ed. Ordering Provid er: ISATU TODD Report Released Date/Time: Dec 10, 2021 07:22 AM Reporting Lab: [place] [facility] [address] [facility] [address] Performing Lab: [place] [facility] [address] [facility] [address] WBC 7.0 4.5-11.0 RBC 4.54 4.23-5.66 HGB [...] PLASMA AM [facility] PANEL Comment: [place] [id number] on Dec 10, 2021@08:31 Tests performed on [employer] (405) SN:[id number] Ordering Provid er: ISATU TODD Report Released Date/Time: Dec 10, 2021 07:22 AM Reporting Lab: [facility] [address] [facility] [address] Performing Lab: [facility] [address] [facility] [address] CREATININE 0.78 0.5-1.5 eGFR(CKD-EPI 2020) >90.0 >60 Dec 09, 2021 06:46 AM [place] [facility] MAGNESIUM Sp ecimen Type: PLASMA Comment: Tests performed on [employer] (405) SN:[id number] Ordering Provid er: ISATU TODD Report Released Date/Time: Dec 08, 2021 10:23 AM Reporting Lab: [place] [facility] [address] [facility] [address] Performing Lab: [place] [facility] [address] [facility] [address] MAGNESIUM 1.6 1.6-2.6 Dec 09, 2021 [facility] P4 GLU,BUN,CREAT,LYTES,CA Speci men Type: PLASMA 06:46 AM [facility] Comment: Tests performed on [employer] (405) SN:[id number] Ordering Provid er: ISATU TODD Report Released Date/Time: Dec 08, 2021 05:00 PM Reporting Lab: [facility] [address] [facility] [address] Performing Lab: [facility] [address] [facility] [address] UREA NITROGEN 6 L 7-25 SODIUM 134 [...] Lab: [facility] [address] [facility] [address] Performing Lab: [facility] [address] [facility] [address] WBC 7.1 4.5-11.0 RBC 4.40 4.23-5.66 HGB [...] 08, 2021 06:39 AM [facility] MAGNESIUM Sp ecimen Type: PLASMA Comment: Testin g Performed on [employer] (405) SN:[id number] Ordering Provid er: ISATU TODD Report Released Date/Time: Dec 07, 2021 10:32 AM Reporting Lab: [facility] [address] [facility] [address] Performing Lab: [facility] [address] [facility] [address] MAGNESIUM 1.5 L 1.6-2.6 Dec 08, 2021 06:39 AM [facility] CBC PROFILE Sp ecimen Type: BLOOD No comment enter ed. Ordering Provid er: ISATU TODD Report Released Date/Time: Dec 07, 2021 10:32 AM Reporting Lab: [facility] [address] [facility] [address] Performing Lab: [facility] [address] [facility] [address] WBC 8.4 4.5-11.0 RBC 4.75 4.23-5.66 HGB [...] ABSOLUTE NRBC 0.00 0-0 Dec 08, 2021 [facility] P4 GLU,BUN,CREAT,LYTES,CA Speci men Type: PLASMA 06:39 AM [facility] Comment: Testin g Performed on [employer] (405) SN:[id number] Ordering Provid er: ISATU TODD Report Released Date/Time: Dec 07, 2021 10:32 AM Reporting Lab: [facility] [address] [facility] [address] Performing Lab: [facility] [address] [facility] [address] UREA NITROGEN 6 L 7-25 SODIUM 136 135-145 POTASSIUM 3.3 L 3.5-5.0 CHLORIDE 104 100-110 CARBON DIOXIDE 22 20-30 ANION GAP 10 4-16 GLUCOSE 133 H 65-100 CREATININE 0.76 0.5-1.5 CALCIUM 8.4 L 8.5-10.5 eGFR(CKD-EPI 2020) >90.0 >60 Dec 07, 2021 [facility] P4 GLU,BUN,CREAT,LYTES,CA Speci men Type: PLASMA 06:42 AM [facility] Comment: Tests performed on [employer] (405) SN:[id number] Ordering Provid er: PORFIRIO WALTERS Report Released Date/Time: Dec 06, 2021 06:57 PM Reporting Lab: [place] [employer] [facility] [address] [facility] [address] Performing Lab: [facility] [address] [facility] [address] UREA NITROGEN 9 7-25 SODIUM 135 135-145 POTASSIUM 3.5 3.5-5.0 CHLORIDE 103 100-110 CARBON DIOXIDE 22 20-30 ANION GAP 10 4-16 GLUCOSE 92 65-100 CREATININE 0.73 0.5-1.5 CALCIUM 8.0 L 8.5-10.5 eGFR(CKD-EPI 2020) >90.0 >60 Dec 07, 2021 06:42 [place] LIVER PROFILE Specimen Typ e: PLASMA AM [facility] Comment: Tests performed on [employer] (405) SN:[id number] Ordering Provid er: PORFIRIO WALTERS Report Released Date/Time: Dec 06, 2021 06:57 PM Reporting Lab: [facility] [address] [facility] [address] Performing Lab: [facility] [address] [facility] [address] PROTEIN, TOTAL 5.7 L 6.0-8.5 ALBUMIN 2.4 L 3.2-5.0 BILIRUBIN, TOTAL 0.4 0.2-1.2 ALKALINE PHOSPHATASE 109 40-150 ALT(SGPT) 10 7-52 AST(SGOT) 15 5-34 FIB-4 SCORE 1.92 <2.67 Dec 07, 2021 06:42 AM [facility] [facility] CBC PROFILE Specimen Type: BLOOD [facility] No comment enter ed. Ordering Provid er: PORFIRIO WALTERS Report Released Date/Time: Dec 06, 2021 06:57 PM Reporting Lab: [facility] [address] [facility] [address] Performing Lab: [facility]OC [address] [facility] [address] WBC 5.7 4.5-11.0 RBC 4.15 L 4.23-5.66 [...] [facility]AM[facility] %) AUTOMATED Comment: Tests performed on [employer] (405) SN:[id number] Ordering Provid er: ISATU TODD Report Released Date/Time: Dec 07, 2021 10:28 AM Reporting Lab: [place] [facility] [address] [facility] [address] Performing Lab: [place] [facility] [address] [facility] [address] RETICULOCYTES (%) AUTOMATED 1.23 0. 6-2.0 RETICULOCYTES (ABS) AUTOMATED 0.052 0.030-0.090 Dec 06, 2021 09:45 [place] MRSA SURVL NARES Specimen Ty pe: NARES PM [facility] DNA No comment enter ed. Ordering Provid er: ALVARO VARGHESE Report Released Date/Time: Dec 07, 2021 02:20 AM Reporting Lab: [place] [facility] [address] [facility] [address] Performing Lab: [place] [facility] [address] [facility] [address] MRSA SURVL NARES DNA NEGATIVE NEGATIVE Dec 06, 2021 06:00 [place] URINALYSIS W/REFLEX TO Speci men Type: URINE PM [facility] CULTURE No comment enter ed. Ordering Provid er: JELANI SÁNCHEZ Report Released Date/Time: Dec 06, 2021 11:57 AM Reporting Lab: [place] [facility] [address] [facility] [address] Performing Lab: [place] [facility] [address] [facility] [address] URINE COLOR Arlin YELLOW SPECIFIC GRAVITY 1.029 [...] 21, [place]IANT Comment: https://www.cdc.gov/coronavirus/2019-ncov/cases-updates/variant- surveillance/variant-info.html The [employer] SARS CoV 2 Datam Research Assay-GX is a next-generation sequencing (NGS) assa 2021 [facility] SEQUENCING y that determine s the complete genome sequence of the SARS-CoV-2 virus. The assay contains variant-tolerant primers to broaden and improve the coverage for variant detection and increase the sensitivity 12:00 [facility] PNL(WH) of the panel to enable detection from lower viral titer samples. The assay is run on the mySugr Sequencer, which performs automated library preparation, sequencing, analysis, and reporting. PM The sequence an alysis includes determination of viral phylogenetic lineage by comparison to the reference strain Wuhan-Hu-1, GenBank: [id number]. Sequence determination may not be possible owing [...] Dec 06, 2021 01:13 PM Reporting Lab: [facility] [address] [facility] [address] Performing Lab: [facility] [address] [facility] [address] SARS-CoV-2 CLADE() 22C (OMICRON) SARS-CoV-2 LINEAGE() BA.2.12.1 Dec 06, 2021 12:00 [facility] COVID-19 AG SCREEN Specimen Type: NASAL CAVITY PM [facility] PANEL [employer]INAX(405) Comment: Testi ng Performed By: Mike Briscoe Ordering Provid er: JELANI SÁNCHEZ Report Released Date/Time: Dec 08, 2021 08:23 AM Reporting Lab: [facility] [address] [facility] [address] Performing Lab: [facility] [address] [facility] [address] COVID-19 AG SCRN(wrj BINAX) POSITIVE HH NE G Dec 06, 2021 12:00 PM [facility] TROPONIN II Sp ecimen Type: PLASMA Comment: Tests performed on [employer] (405) SN:[id number] Ordering Provid er: JELANI SÁNCHEZ Report Released Date/Time: Dec 06, 2021 11:57 AM Reporting Lab: [facility] [address] [facility] [address] Performing Lab: [facility] [address] [facility] [address] TROPONIN II 0.03 0.00-0.29 Dec 06, 2021 [place] P4 GLU,BUN,CREAT,LYTES,CA Speci men Type: PLASMA 12:00 PM [facility] Comment: Testin g Performed on [employer] (405) SN:[id number] Ordering Provid er: JELANI SÁNCHEZ Report Released Date/Time: Dec 06, 2021 11:57 AM Reporting Lab: [place] [facility] [address] [facility] [address] Performing Lab: [place] [facility] [address] [facility] [address] UREA NITROGEN 13 7-25 SODIUM 138 135-145 POTASSIUM 3.8 3.5-5.0 CHLORIDE 103 100-110 CARBON DIOXIDE 23 20-30 ANION GAP 12 4-16 GLUCOSE 105 H 65-100 CREATININE 0.90 0.5-1.5 CALCIUM 8.7 8.5-10.5 eGFR(CKD-EPI 2020) >90.0 >60 Dec 06, 2021 12:00 PM [facility] LIVER PROFILE Sp ecimen Type: PLASMA Comment: Testin g Performed on [employer] (405) SN:[id number] Ordering Provid er: JELANI SÁNCHEZ Report Released Date/Time: Dec 06, 2021 11:57 AM Reporting Lab: [facility] [address] [facility] [address] Performing Lab: [facility] [address] [facility] [address] PROTEIN, TOTAL 6.6 6.0-8.5 ALBUMIN 2.8 L 3.2-5.0 BILIRUBIN, TOTAL 0.6 0.2-1.2 ALKALINE PHOSPHATASE 134 40-150 ALT(SGPT) 13 7-52 AST(SGOT) 18 5-34 FIB-4 SCORE 1.94 <2.67 Dec 06, 2021 [facility] COVID-19+FLU/RSV DIAGNOSTIC Spe cimen Type: NASOPHARYNX 12:00 PM [facility] PANEL(405) Comment: Tests performed on [employer] (405) Critical results called to and read back by: ALESHIA WILKINSON RN 12/06/21 @ 1312 Ordering Provid er: JELANI SÁNCHEZ Report Released Date/Time: Dec 06, 2021 11:57 AM Reporting Lab: [facility] [address] [facility] [address] Performing Lab: [facility] [address] [facility] [address] FLU A(PCR) NEGATIVE NEGATIVE FLU B(PCR) NEGATIVE NEGATIVE RSV(PCR) NEGATIVE NEGATIVE COVID-19(GUD-rby-NVSOEOPDS) DETECTED HH NO T DETECTED Dec 06, 2021 12:00 PM [facility] BNP(P) Sp ecimen Type: PLASMA Comment: Tests performed on [employer] (405) [id number] Ordering Provid er: JELANI SÁNCHEZ Report Released Date/Time: Dec 06, 2021 11:57 AM Reporting Lab: [facility] [address] [address] Performing Lab: [facility] [address] [address] BNP(P) 224.8 H 10-100 Dec 06, 2021 12:00 PM [facility] CBC PROFILE Sp ecimen Type: BLOOD No comment enter ed. Ordering Provid er: JELANI SÁNCHEZ Report Released Date/Time: Dec 06, 2021 11:57 AM Reporting Lab: [facility] [address] [address] [facility] [address] [address] WBC 7.2 4.5-11.0 RBC 4.86 4.23-5.66 HGB [...] [facility] PM [facility] Dec 13, 97.9 F 82 108/62 20 /min 96 % 2021 03:27 /min mm[Hg] RIVER PM T [facility] Dec 13, 0 WHITE 2021 02:44 RIVER PM T [facility] Dec 13, 0 WHITE 2021 08:15 R[facility] AM [facility] Dec 13, 0 WHITE 2021 05:18 [facility] AM [facility] Social [...] PAST YEAR [facility] May 01, 2016 03:11 PM QUIT TOBACCO USE IN PAST YEAR [facility] May 01, 2016 11:19 AM QUIT TOBACCO USE IN PAST YEAR [facility] Mar 16, 2016 12:50 PM V1-PT DECLINES REF TO TOBACCO [facility] CESS PRGM Mar 16, 2016 12:50 PM [...] W/WO CONTRAST: MARYELLEN LONG LUCAS LARES N [id number] -1950 [facility] Exm Date: DEC 13, 2021@12:57 Req Phys: ISATU TODD Loc: OP Unknown/0 12-15-2021@13:20 Img Loc: MRI IMAGING (OOS) Service: ZZGENERAL MEDICINE (Case [id number] COMPLETE) MRI ABDOMEN W/WO CONTRAST (M RI Detailed) CPT:69067 Reason for Study: further characterization of a [...] new lyphadenopathy REQUESTING MD: Isatu Todd PAGER: [phone] PHONE: [phone] Weight: 232.2 lb [105.32 kg] (12/12/2021 05:00) [...] patient will need to arrange for a pile driver operator to take him/her home after the MRI [...] 15, 2021 Date Verified: DEC 15, 2021 Vest Presser E-Sig:/ES/MARYELLEN LONG Report: MRI ABDOMEN W/WO CONTRAST [...] MALIGNANCY Primary Interpreting Staff: Staff AMELIA THOMAS (Vest Presser) / Dec 10, 2021 09:[address] ABDOMEN & PELVIS: [facility] LUC[facility] MEEK N [id number] -1950 M [facility] Ex Date: DEC 10, 2021@09:30 Req Phys: ISATU TODD Loc: 1S MED/12-10@10:57 Img Loc: CT SCAN (OOS) Service: [facility] MEDICINE (Case [id number] COMPLETE) CT ABD & PELVIS WITHOUT CONT RAST (CT Detailed) CPT:87680 Reason for Study: 71 yo male with [...] INDEX - NO HEIGHTS FOUND Pager number: [phone] STAT orders MUST be call ed to RADIOLOGY [phone] to speak to the appropriate porcelain technician. Report Status: Verified Date Reported: DEC 10, 2021 Date Verified: DEC 10, 2021 Vest Presser E-Sig: Report: EXAM: CT abdomen and pelvis [...] ph nodes. READING PHYSICIAN: Ramone Munoz D.O. -[id number] 12/10/2021 10:55 EDT [facility] National Teleradiology Program [phone] (For Medical Practitioner Use Only ) [address], [facility] [address], [address] [place] [address] Attention Patients / Veterans: If you have ques tions or concerns about these test results, please contact your o rdering provider or primary care team. Primary Diagnostic Code: SIGNIFICANT ABNORMALIT Y, ATTN NEEDED Primary Interpreting Staff: RADIOLOGY,OUTSIDE SERVICE, Staff Physician / Dec 09, 2021 07:34 AM BASW (MODIFIED): JESSIE CHENEY TARA ER JCT LUCAS MEEK N [id number] -1950 M [facility]3]OC Exm Date: DEC 09, 2021@07:34 Req Phys: ISATU TODD Josseline Loc: 1S MED/12-09@11:26 Img Loc: XRAY (OOS) Service: [facility] MEDICINE (Case [id number] COMPLETE) BASW (MODIFIED) (RAD Detaile d) CPT:49129 Contrast Media : Barium Reason for Study: dysphagia ?esophageal spasm Clinical History: Report Status: Verified Date Reported: DEC 09, 2021 Date Verified: DEC 09, 2021 Vest Presser E-Sig:/ES/JESSIE CHENEY Report: BASW (MODIFIED) , 12/09/2021 [...] REQUIRED Primary Interpreting Staff: JESSIE CHENEY, RADIOLOGIST (Vest Presser) /TLC Dec 06, 2021 12:[address] CHEST (INCLUDES ADRENALS): [facility] LUCAS MEEK N [id number] -1950 M [facility]3]OC Exm Date: DEC 06, 2021@12:59 Req Phys: GONZALO,JELANI J Pat Loc: [facility] ED DAYS M 1RD (Req'g Loc) Img Loc: CT SCAN (OOS) Service: Unknown (Case [id number] COMPLETE) CT THORAX W/O CONT (CT Detai led) CPT:09710 Reason for Study: Opacification right chest Clinical History: No contrast allergy BUN: 13 (12/06/21 12:00) CREATI: 0.90 (12/06/21 12:00) eGFR 05/16/21 09:43 52 L Weight: 232.6 lb [105.51 kg] (12/06/2021 11:40) BODY MASS INDEX - NO HEIGHTS FOUND Pager number: [phone] STAT orders MUST be called t o RADIOLOGY [phone] to speak to the appropriate porcelain technician. Indications - Other: Opacification right chest, covid positive, lung cancer histo Report Status: Verified Date Reported: DEC 06, 2021 Date Verified: DEC 06, 2021 Vest Presser E-Sig:/ES/JESSIE CHENEY Report: CT THORAX W/O CONT [...] REQUIRED Primary Interpreting Staff: JESSIE CHENEY, RADIOLOGIST (Vest Presser) Primary Interpreting Resident: PRINCE CHAMPION, Resident /BR Dec 06, 2021 11:58 AM CHEST SINGLE VIEW: JESSIE CHENEY DOUGLAS N [id number] -1950 M [facility] Exm Date: DEC 06, 2021@11:58 Req Phys: JELANI SÁNCHEZ Pat Loc: [facility] ED DAYS M 1RD (Req'g Loc) Img Loc: XRAY (OOS) Service: Unknown (Case [id number] COMPLETE) CHEST SINGLE VIEW (RAD Detai led) CPT:70142 Proc Modifiers : PORTABLE EXAM Reason for Study: SOB, home covid test positive Clinical History: Report Status: Verified Date Reported: DEC 06, 2021 Date Verified: DEC 06, 2021 Vest Presser E-Sig:/ES/JESSIE CHENEY Report: Exam type: Chest x-ray [...] REQUIRED Primary Interpreting Staff: JESSIE CHENEY, RADIOLOGIST (Vest Presser) /TLC Pathology Reports: +/- 30 days of [...] [facility] [CLIA# [id number]] [address] [place] [address] - - - - - - [...] automatically d ocumented from SURGERY package case #[id number] Field (#32) PRINCIPAL PRE-OP DIAGNOSIS, (#.72) OTHER [...] automatically d ocumented from SURGERY package case #[id number] Field (#34) PRINCIPAL POST-OP DIAG, (#.74) OTHER [...] Label: Lucas Meek Paperwork: Lucas Meek Cassette: [id number];..;KALYANI;.;405;[id number] Specimen is labeled: ES bx Received in formalin are several pieces of pale boyd and brown tissue, 1.2 x 0.7 cm in aggregate. Submitted entirely in 1 cassette [id number];..;KALYANI;.;405;[id number] SAW 12/15/2021 Microscopic exam: *+* MODIFIED REPORT *+* (Last modified: JAN 03, 2022@09:30:20 typed by NIURKA WADDELL) DIAGNOSIS: A. 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 Kendell long. TIARA Coombs was notified on 12/21/21. Modified on 01/03/22 to include report from [facility] stating that tumor is NEGATIVE for her2/ matheus amplification. The attending pathologist who signature mansoor ears on this report has reviewed all diagnostic slides and has edited t he gross and/or microscopic portion of this report in rendering the final pathologic diagnosis. [address] [address] CPT: 70982 /emely/ NIURKA Yeung MD Signed Jan 03, 2022@10:28 Performing Laboratory: Surgical Pathology Report Performed By: [facility] [CLIA# [id number]] [address] [place] [id number] $FTR - - - - - [...] - - LUCAS MEEK STANDARD FORM 515 ID:[id number] SEX:M :1950 AGE: 71 LOC: SDM END PCP: Isatu Todd /emely/ NIURKA MILLER Staff Signed: 01/03/2022 10:28 Dec 21, 2021 11:46 AM LR SURGICAL PATHOLOGY REPORT: STEFANY MILLER [facility] LOCAL TITLE: LR SURGICAL PATHOLOGY REPORT [facility] STANDARD TITLE: PATHOLOGY REPORT DATE OF NOTE: DEC 21, 2021@11:46:59 ENTRY DATE: DEC 21, 2021@11:46:59 AUTHOR: NIURKA MILLER EXP COSIGNER: URGENCY: STATUS: COMPLETED $APHDR Reporting Lab: [facility] [CLIA# [id number]] [address] [place] [address] - - - - - - [...] automatically d ocumented from SURGERY package case #[id number] Field (#32) PRINCIPAL PRE-OP DIAGNOSIS, (#.72) OTHER [...] automatically d ocumented from SURGERY package case #[id number] Field (#34) PRINCIPAL POST-OP DIAG, (#.74) OTHER [...] Label: Lucas Meek Paperwork: Lucas Meek Cassette: [id number];..;KALYANI;.;405;[id number] Specimen is labeled: ES bx Received in formalin are several pieces of pale boyd and brown tissue, 1.2 x 0.7 cm in aggregate. Submitted entirely in 1 cassette [id number];..;KALYANI;.;405;[id number] SAW 12/15/2021 Microscopic exam: DIAGNOSIS: A. 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 Kendell long. TIARA Coombs was notified on 12/21/21. The attending pathologist who signature mansoor ears on this report has reviewed all diagnostic slides and has edited t he gross and/or microscopic portion of this report in rendering the final pathologic diagnosis. [address] [address] CPT: 96219 /emely/ NIURKA Yeung MD Signed Dec 21, 2021@11:46 Performing Laboratory: Surgical Pathology Report Performed By: [facility] [CLIA# [id number]] [address] [place] [address] $FTR - - - - - [...] - - LUCAS MEEK STANDARD FORM 515 ID:[id number] SEX:M :1950 AGE: 71 LOC: [facility] END PCP: Isatu Todd /charmaine Yeung MD Signed: 12/21/2021 11:46 Dec 06, 2021 03:30 PM LR MICROBIOLOGY REPORT: [facility] Reporting Lab: [facility] [CLIA# [id number]] [address] [place] [address] Accession [UID]: [id number] [[id number]] Receiv ed: Dec 06, 2021@16:14 Collection sample: BLOOD CUL T BOTTLE(NIRMAL/AERO)Collection date: Dec 06, 2021 15:30 Site/Specimen: BLOOD Provider: JELANI SÁNCHEZ Comment on specimen: LAC Test(s) ordered: BLOOD CULTURE ANAEROBI C....... completed: Dec 12, 2021 06:18 * BACTERIOLOGY FINAL REPORT => Dec 12, 2021 06:1 8 TECH CODE: 14212 Bacteriology Remark(s): NO GROWTH IN 5 DAYS =--=--=--=--=--=--=--=--=--=--=--=--=--= --=--=--=--=--=--=--=--=--=--=--=--=-- Performing Laboratory: Bacteriology Report Performed By: [facility] [CLIA# [id number]] [address] [place] [address] Dec 06, 2021 03:30 PM LR MICROBIOLOGY REPORT: [facility] Reporting Lab: [facility] [CLIA# [id number]] [address] [place] [address] Accession [UID]: [id number] [[id number]] Receiv ed: Dec 06, 2021@16:14 Collection sample: BLOOD CUL T BOTTLE(NIRMAL/AERO)Collection date: Dec 06, 2021 15:30 Site/Specimen: BLOOD Provider: JELANI SÁNCHEZ Comment on specimen: LAC Test(s) ordered: BLOOD CULTURE AEROBIC. ........ completed: Dec 12, 2021 06:17 * BACTERIOLOGY FINAL REPORT => Dec 12, 2021 06:1 7 TECH CODE: 10001 Bacteriology Remark(s): NO GROWTH IN 5 DAYS =--=--=--=--=--=--=--=--=--=--=--=--=--= --=--=--=--=--=--=--=--=--=--=--=--=-- Performing Laboratory: Bacteriology Report Performed By: [facility] [CLIA# [id number]] [address] [place] [address]
--- OUTSIDE RECORDS SUMMARY | 2022-01-19 08:48 | XMS_ITS | Encounter Summary ---
:1950 Author Organization [facility] Address [address] [place] [id number] Support Name Relationship Address Phone YUSRA MEEK Unavailable [address] [place] [address] YUSRA MEEK Unavailable [address] [place] [facility] [place] [address] CLAY MOSLEY Unavailable Unavailable SJ SANTACRUZ Unavailable [...] MEDICARE MEDICARE PART Jun 18, PART A [id number] DO KALYANI PATIENT (WNR) (M) A 2016 13A 1 UGLAS MEDICARE MEDICARE PART Jun 18, PART B [id number] DO KALYANI PATIENT (WNR) (M) B 2016 13A 1 LAS MEDICARE MEDICARE PART Jun 18, PART A [id number] KALYANIDO PATIENT (WNR) (M) A 2017 VH81 2 LAS MEDICARE MEDICARE PART Jun 18, PART B [id number] DO KALYANI PATIENT (WNR) (M) B 2017 VH81 2 UGLAS UNITED MEDICARE MCR(Jun 18 [id number] Luz MEEK PATIENT HEALTHCARE ADVANTAGE NR) 2021 37 0 [facility] (WNR) Selected Encounter This section includes the information on record at [place] for the Encounter. Date/Time Encounter Type Encounter Reason Provider Source Description Dec 13, 2021 GAIT TRAINING PHYSICAL THERAPY ICD-10-CM ZAK ANAND 09:05 AM THERAPY U07.1 COVID-19 with Provider Comments: Covid-19 IHE Encounter Template Text not used by [facility] Assessments - Encounter Diagnoses This section includes the primary and secondary diagnoses documented for the Encounter. Date/Time Primary/Secondary Diagnosis Name Provider Source Diagnosis Dec 13, 2021 PRIMARY COVID-19 ZAK ANAND 03:46 PM [facility] Plan of Treatment: Future Appointments (+ [...] AM AMBULATORY - NONE [place] [facility] Jan 06, 2022 02:00 PM [place] [facility] Jan 10, 2022 11:30 AM AM[facility]ORY - MEDICINE [facility] Jan 24, 2022 08:00 AM [place] [facility] Feb 21, 2022 10:00 AM AMBULATORY - SURGERY [place] [facility] Mar 21, 2022 10:30 AM AMBULATORY - [...] 31, 2021 07:37 AM Consult Order [facility] CARE-EGD [facility] Cons Color Artist's Choice November 15, 2021 10:37 AM Consult Order [facility] CARE-PODIATRY Cons Color Artist's Choice Dec 06, 2021 12:52 PM [place] Order [facility] Dec 06, 2021 03:24 PM [place]acy [place] [facility] Dec 06, 2021 03:40 PM [place]acy [place] Order [facility] Dec 15, 2021 08:41 AM Consult Order SPEECH PATHOLOGY [place] Cons [facility] Color Artist's Choice Jan 15, 2022 10:08 PM Consult Order [facility] CARE-PALLIATIVE CARE Cons Color Artist's Choice Lab Results: +/- 30 days [...] Speci men Type: PLASMA 06:[address] [facility] Comment: Tests performed on Quorum Systems (405) SN:[id number] Ordering Provid er: ISATU TODD Report Released Date/Time: Dec 11, 2021 07:42 AM Reporting Lab: [place] [facility] [address] [facility] [address] Performing Lab: [facility] [place] [facility] [address] [facility] [address] UREA NITROGEN 9 7-25 SODIUM 137 135-145 POTASSIUM 3.8 3.5-5.0 CHLORIDE 105 100-110 CARBON DIOXIDE 26 20-30 ANION GAP 6 4-16 GLUCOSE 102 H 65-100 CREATININE 0.64 0.5-1.5 CALCIUM 8.1 L 8.5-10.5 eGFR(CKD-EPI 2020) >90.0 >60 Dec 15, 2021 06:[facility] CBC PROFILE Sp ecimen Type: BLOOD No comment enter ed. Ordering Provid er: ISATU TODD Report Released Date/Time: Dec 10, 2021 07:22 AM Reporting Lab: [place] [facility] [address] [facility] [address] Performing Lab: [facility] [address] [facility] [address] WBC 5.7 4.5-11.0 RBC 4.22 L 4.23-5.66 [...] ABSOLUTE NRBC 0.00 0-0 Dec 14, 2021 [facility] CYTOGENETIC Specimen Type: ESOPHAGUS 02:[address] [facility] FISH([facility] Comment: ~For T est: CYTOGENETIC FISH([facility]) ~FISH HER 2 NUE, FFPE See full report in [place] Image display viewer/tab#LAB-Reference Ordering Provid er: NIURKA MILLER Report Released Date/Time: Dec 21, 2021 12:11 PM Reporting [facility]: [facility] [address] [facility] [address] Performing Lab: [facility] CYTOGENETIC FISH([facility]) comment Dec 14, 2021 [facility] P4 GLU,BUN,CREAT,LYTES,CA Speci men Type: PLASMA 06:[address] [facility] Comment: Tests performed on Quorum Systems (405) SN:[id number] Ordering Provid er: ISATU TODD Report Released Date/Time: Dec 11, 2021 07:42 AM Reporting Lab: [facility] [address] [facility] [address] Performing Lab: [facility] [address] [facility] [address] UREA NITROGEN 10 7-25 SODIUM 137 135-145 [...] Reporting Lab: [facility] [address] [facility] [address] Performing Lab: [facility] [address] [facility] [address] WBC 6.0 4.5-11.0 RBC 4.29 4.23-5.66 HGB [...] ABSOLUTE NRBC 0.00 0-0 Dec 13, 2021 [facility] P4 GLU,BUN,CREAT,LYTES,CA Speci men Type: PLASMA 06:[address] [facility] Comment: Tests performed on Quorum Systems (405 SN:[id number] Ordering Provid er: ISATU TODD Report Released Date/Time: Dec 11, 2021 07:42 AM Reporting Lab: [facility] [address] [facility] [address] Performing [facility]: [facility] [address] [facility] [address] UREA NITROGEN 12 7-25 SODIUM 136 135-145 [...] [facility] [address] [facility] [address] Performing Lab: [facility] [address] [facility] [address] WBC 5.6 4.5-11.0 RBC 4.28 4.23-5.66 HGB [...] ABSOLUTE NRBC 0.00 0-0 Dec 12, 2021 [facility] P4 GLU,BUN,CREAT,LYTES,CA Speci men Type: PLASMA 06:[address] [facility] Comment: Tests performed on [employer] Systems (405) SN:[id number] Ordering Provid er: ISATU TODD Report Released Date/Time: Dec 11, 2021 07:42 AM Reporting Lab: [facility] [address] [facility] [address] Performing Lab: [facility] [address] [facility] [address] UREA NITROGEN 11 7-25 SODIUM 139 135-145 [...] Reporting Lab: [facility] [address] [facility] [address] Performing Lab: [facility] [address] [facility] [address] WBC 5.5 4.5-11.0 RBC 4.37 4.23-5.66 HGB [...] Dec 12, 2021 06:00 AM [place] [facility] MAGNESIUM Sp ecimen Type: PLASMA Comment: Testin g Performed on Quorum Systems (405) SN:[id number] Ordering Provid er: ISATU TODD Report Released Date/Time: Dec 12, 2021 08:24 AM Reporting Lab: [place] [facility] [address] [facility] [address] Performing Lab: [facility] [address] [facility] [address] MAGNESIUM 1.8 1.6-2.6 Dec 12, 2021 06:00 AM [place] [facility] PHOSPHORUS Sp ecimen Type: PLASMA Comment: Testin g Performed on [employer] Systems (405) SN:[id number] Ordering Provid er: ISATU TODD Report Released Date/Time: Dec 12, 2021 08:24 AM Reporting Lab: [place] [facility] [address] [facility] [address] Performing Lab: [facility] [address] [facility] [address] PHOSPHORUS 3.1 2.5-5.0 Dec 11, 2021 06:15 AM [place] [facility] ELECTROLYTES Sp ecimen Type: PLASMA Comment: Tests performed on [employer] Systems (405) SN:[id number] Ordering Provid er: ISATU TODD Report Released Date/Time: Dec 10, 2021 07:22 AM Reporting Lab: [place] [facility] [address] [facility] [address] Performing Lab: [facility] [address] [facility] SODIUM 137 135-145 POTASSIUM 4.3 3.5-5.0 CHLORIDE 108 100-110 CARBON DIOXIDE 20 20-30 ANION GAP 9 4-16 Dec 11, 2021 06:15 AM [facility] CBC PROFILE Sp ecimen Type: BLOOD Comment: Result s checked Ordering Provid er: ISATU TODD Report Released Date/Time: Dec 10, 2021 07:22 AM Reporting Lab: [facility] [address] [facility] [address] Performing Lab: [facility] [address] [facility] WBC 5.8 4.5-11.0 RBC 4.37 4.23-5.66 HGB [...] 0.00 0-0 Dec 11, 2021 06:00 AM [place] [facility] PHOSPHORUS Sp ecimen Type: PLASMA Comment: Tests performed on Qu[employer] Systems (599) SN:[id number] Results checked Ordering Provid er: ISATU TODD Report Released Date/Time: Dec 11, 2021 07:44 AM Reporting Lab: [place] [facility] [address] [facility] [place] [address] Performing Lab: [place] [facility] [address] [place] [facility] [place] [address] PHOSPHORUS 3.0 2.5-5.0 Dec 10, 2021 08:05 AM [place] [facility] MAGNESIUM Sp ecimen Type: PLASMA Comment: [place] [id number] on Dec 10, 2021@08:31 Tests performed on Pham Police Stenographer (405) SN:[id number] Ordering Provid er: ISATU TODD Report Released Date/Time: Dec 10, 2021 07:22 AM Reporting Lab: [place] [facility] [address] [place] [facility] [place] [address] Performing Lab: [place] [facility] [address] [place] [facility] [place] [address] MAGNESIUM 1.7 1.6-2.6 Dec 10, 2021 08:05 AM [place] UREA NITROGEN Specimen Type: PLASMA [facility] Comment: [place] [id number] on Dec 10, 2021@08:31 Tests performed on Pham DIIME (405) SN:[id number] Ordering Provid er: ISATU TODD Report Released Date/Time: Dec 10, 2021 07:22 AM Reporting Lab: [place] [facility] [address] [place] [facility] [place] [address] Performing Lab: [place] [facility] [address] [place] [facility] [place] [address] UREA NITROGEN 8 7-25 Dec 10, 2021 08:05 AM [place] [facility] PHOSPHORUS Sp ecimen Type: PLASMA Comment: [place] [id number] on Dec 10, 2021@08:31 Tests performed on [employer] Systems (405) SN:[id number] Ordering Provid er: ISATU TODD Report Released Date/Time: Dec 10, 2021 07:22 AM Reporting Lab: [place] [facility] [address] [place] [facility] [place] [address] Performing Lab: [place] [facility] [address] [place] [facility] [place] [address] PHOSPHORUS 1.8 L 2.5-5.0 Dec 10, 2021 08:05 AM [place] [facility] GLUCOSE Sp ecimen Type: PLASMA Comment: [place] [id number] on Dec 10, 2021@08:31 Tests performed on [employer] Systems (405) SN:[id number] Ordering Provid er: ISATU TODD Report Released Date/Time: Dec 10, 2021 07:22 AM Reporting Lab: [place] [facility] [address] [facility] [address] Performing Lab: [place] [facility] [address] [facility] [address] GLUCOSE 144 H 65-100 Dec 10, 2021 08:05 AM [place] [facility] ELECTROLYTES Sp ecimen Type: PLASMA Comment: [place] [id number] on Dec 10, 2021@08:31 Tests performed on [employer] (405) SN:[id number] Ordering Provid er: ISATU TODD Report Released Date/Time: Dec 10, 2021 07:22 AM Reporting Lab: [place] [facility] [address] [facility] [address] Performing Lab: [place] [facility] [address] [facility] [address] SODIUM 139 135-145 POTASSIUM 3.7 3.5-5.0 CHLORIDE 107 100-110 CARBON DIOXIDE 24 20-30 ANION GAP 8 4-16 Dec 10, 2021 08:05 [place] CREATININE WITH eGFR Specime n Type: PLASMA AM [facility] PANEL Comment: [place] [id number] on Dec 10, 2021@08:31 Tests performed on Pham DIIME (405) SN:[id number] Ordering Provid er: ISATU TODD Report Released Date/Time: Dec 10, 2021 07:22 AM Reporting Lab: [place] [facility] [address] [place] [facility] [place] [place] [address] Performing Lab: [place] [facility] [address] [facility] [address] CREATININE 0.78 0.5-1.5 eGFR(CKD-EPI 2020) >90.0 >60 Dec 10, 2021 08:05 AM [place] [facility] CBC PROFILE Sp ecimen Type: BLOOD No comment enter ed. Ordering Provid er: ISATU TODD Report Released Date/Time: Dec 10, 2021 07:22 AM Reporting Lab: [place] [facility] [address] [facility] [address] [facility] [address] [facility] [address] WBC 7.0 4.5-11.0 RBC 4.54 4.23-5.66 HGB [...] 0.00 0-0 Dec 10, 2021 08:05 AM [facility] CALCIUM Sp ecimen Type: PLASMA Comment: [place] [id number] on Dec 10, 2021@08:31 Tests performed on [employer] (405) SN:[id number] Ordering Provid er: ISATU TODD Report Released Date/Time: Dec 10, 2021 07:22 AM Reporting Lab: [facility] [address] [facility] [address] Performing Lab: [facility] [address] [facility] [address] CALCIUM 8.3 L 8.5-10.5 Dec 09, 2021 06:46 AM [facility] MAGNESIUM Sp ecimen Type: PLASMA Comment: Tests performed on Qu[employer] Systems (405) SN:[id number] Ordering Provid er: ISATU TODD Report Released Date/Time: Dec 08, 2021 10:23 AM Reporting Lab: [facility] [place] [facility] [address] [facility] [address] Performing Lab: [facility] [place] [facility] [address] [facility] [address] MAGNESIUM 1.6 1.6-2.6 Dec 09, 2021 [place] P4 GLU,BUN,CREAT,LYTES,CA Speci men Type: PLASMA 06:[address] [facility] Comment: Tests performed on [employer] Systems (405) SN:[id number] Ordering Provid er: ISATU TODD Report Released Date/Time: Dec 08, 2021 05:00 PM Reporting Lab: [facility] [place] [facility] [address] [facility] [address] Performing Lab: [facility] [place] [facility] [address] [facility] [address] UREA NITROGEN 6 L 7-25 SODIUM 134 L 135-145 POTASSIUM 3.7 3.5-5.0 CHLORIDE 103 100-110 CARBON DIOXIDE 23 20-30 ANION GAP 8 4-16 GLUCOSE 112 H 65-100 CREATININE 0.70 0.5-1.5 CALCIUM 8.1 L 8.5-10.5 eGFR(CKD-EPI 2020) >90.0 >60 Dec 09, 2021 06:46 AM [facility] CBC PROFILE Sp ecimen Type: BLOOD No comment enter ed. Ordering Provid er: ISATU TODD Report Released Date/Time: Dec 08, 2021 05:00 PM Reporting Lab: [facility] [place] [facility] [address] [facility] [address] Performing Lab: [facility] [address] [facility] [address] WBC 7.1 4.5-11.0 RBC 4.40 4.23-5.66 HGB [...] 0.00 0-0 Dec 08, 2021 06:39 AM [facility] MAGNESIUM Sp ecimen Type: PLASMA Comment: Testin g Performed on Pham DIIME (405) SN:[id number] Ordering Provid er: ISATU TODD Report Released Date/Time: Dec 07, 2021 10:32 AM Reporting Lab: [facility] [address] [facility] [address] Performing Lab: [facility] [address] [facility] [address] MAGNESIUM 1.5 L 1.6-2.6 Dec 08, 2021 [facility] P4 GLU,BUN,CREAT,LYTES,CA Speci men Type: PLASMA 06:39 AM [facility] Comment: Testin g Performed on Qu[employer] Systems (405) SN:[id number] Ordering Provid er: ISATU TODD Report Released Date/Time: Dec 07, 2021 10:32 AM Reporting Lab: [place] [facility] [address] [facility] [address] Per[facility]: [facility] [address] [facility] [address] UREA NITROGEN 6 L 7-25 SODIUM 136 [...] Dec 07, 2021 10:32 AM Reporting Lab: [facility] [address] [facility] [address] Performing Lab: [facility] [address] [facility] [address] WBC 8.4 4.5-11.0 RBC 4.75 4.23-5.66 HGB [...] ABSOLUTE NRBC 0.00 0-0 Dec 07, 2021 [facility] P4 GLU,BUN,CREAT,LYTES,CA Speci men Type: PLASMA 06:[address] [facility] Comment: Tests performed on Quorum Systems 405) SN:[id number] Ordering Provid er: PORFIRIO WALTERS Report Released Date/Time: Dec 06, 2021 06:57 PM Reporting Lab: [facility] [address] [facility] [address] Performing Lab: [facility] [address] [facility] [address] UREA NITROGEN 9 7-25 SODIUM 135 135-145 POTASSIUM 3.5 3.5-5.0 CHLORIDE 103 100-110 CARBON DIOXIDE 22 20-30 ANION GAP 10 4-16 GLUCOSE 92 65-100 CREATININE 0.73 0.5-1.5 CALCIUM 8.0 L 8.5-10.5 eGFR(CKD-EPI 2020) >90.0 >60 Dec 07, 2021 06:42 [facility] LIVER PROFILE Specimen Typ e: PLASMA AM [facility] Comment: Tests performed on Quorum Systems (405) SN:[id number] Ordering Provid er: PORFIRIO WALTERS Report Released Date/Time: Dec 06, 2021 06:57 PM Reporting Lab: [facility] [address] [facility] [address] Performing Lab: [facility] [address] [facility] [address] PROTEIN, TOTAL 5.7 L 6.0-8.5 ALBUMIN 2.4 L 3.2-5.0 BILIRUBIN, TOTAL 0.4 0.2-1.2 ALKALINE PHOSPHATASE 109 40-150 ALT(SGPT) 10 7-52 AST(SGOT) 15 5-34 FIB-4 SCORE 1.92 <2.67 Dec 07, 2021 06:42 AM [facility] CBC PROFILE Specimen Type: BLOOD [facility] No comment enter ed. Ordering Provid er: PORFIRIO WALTERS Report Released Date/Time: Dec 06, 2021 06:57 PM Reporting Lab: [facility] [address] [facility] [address] Performing Lab: [facility] [address] [facility] [address] WBC 5.7 4.5-11.0 RBC 4.15 L 4.23-5.66 [...] [facility] %) AUTOMATED Comment: Tests performed on Quorum Systems (405) SN:[id number] Ordering Provid er: ISATU TODD Report Released Date/Time: Dec 07, 2021 10:28 AM Reporting Lab: [place] [facility] [address] [facility] [address] Performing Lab: [place] [facility] [address] [facility] [address] RETICULOCYTES (%) AUTOMATED 1.23 0. 6-2.0 RETICULOCYTES (ABS) AUTOMATED 0.052 0.030-0.090 Dec 06, 2021 09:45 [place] MRSA SURVL NARES Specimen Ty pe: NARES PM [facility] DNA No comment enter ed. Ordering Provid er: ALVARO VARGHESE Report Released Date/Time: Dec 07, 2021 02:20 AM Reporting Lab: [place] [facility] [address] [facility] [address] Performing Lab: [place] [facility] [address] [facility] [address] MRSA SURVL NARES DNA NEGATIVE NEGATIVE Dec 06, 2021 06:00 [place] URINALYSIS W/REFLEX TO Speci men Type: URINE PM [facility] CULTURE No comment enter ed. Ordering Provid er: JELANI SÁNCHEZ Report Released Date/Time: Dec 06, 2021 11:57 AM Reporting Lab: [facility] [address] [facility] [address] Performing Lab: [facility] [address] [facility] [address] URINE COLOR Arlin YELLOW SPECIFIC GRAVITY 1.029 [...] 21, [place] Comment: https://www.cdc.gov/coronavirus/2019-ncov/cases-updates/variant- surveillance/variant-info.html The [employer] SARS CoV 2 [employer] Research Assay-GX is a next-generation sequencing (NGS) assa 2021 [facility] SEQUENCING y that determine s the complete genome sequence of the SARS-CoV-2 virus. The assay contains variant-tolerant primers to broaden and improve the coverage for variant detection and increase the sensitivity 12:00 [facility] PNL() of the panel to enable detection from lower viral titer samples. The assay is run on the [employer] Sequencer, which performs automated library preparation, sequencing, analysis, and reporting. PM The sequence an alysis includes determination of viral phylogenetic lineage by comparison to the reference strain Wuhan-Hu-1, GenBank: [id number]. Sequence determination may not be possible owing [...] 2021 01:13 PM Reporting Lab: [facility] [address] [facility] [address] Performing Lab: [facility] [address] [facility] [address] SARS-CoV-2 CLADE() 22C (OMICRON) SARS-CoV-2 LINEAGE() BA.2.12.1 Dec 06, 2021 12:00 [facility] COVID-19 AG SCREEN Specimen Type: NASAL CAVITY PM [facility] PANEL BINAX(405) Comment: Testi ng Performed By: Mike Briscoe Ordering Provid er: JELANI SÁNCHEZ Report Released Date/Time: Dec 08, 2021 08:23 AM Reporting Lab: [facility] [address] [facility] [address] Performing Lab: [facility] [address] [facility] [address] COVID-19 AG SCRN(wrj BINAX) POSITIVE HH NE G Dec 06, 2021 12:00 PM [facility] LIVER PROFILE Sp ecimen Type: PLASMA Comment: Testin g Performed on Pham Police Stenographer (405) SN:[id number] Ordering Provid er: JELANI SÁNCHEZ Report Released Date/Time: Dec 06, 2021 11:57 AM Reporting Lab: [facility] [address] [facility] [address] Performing Lab: [facility] [address] [facility] [address] PROTEIN, TOTAL 6.6 6.0-8.5 ALBUMIN 2.8 L 3.2-5.0 BILIRUBIN, TOTAL 0.6 0.2-1.2 ALKALINE PHOSPHATASE 134 40-150 ALT(SGPT) 13 7-52 AST(SGOT) 18 5-34 FIB-4 SCORE 1.94 <2.67 Dec 06, 2021 12:00 PM [facility] TROPONIN II Sp ecimen Type: PLASMA Comment: Tests performed on Pham Police Stenographer (405) SN:[id number] Ordering Provid er: JELANI SÁNCHEZ Report Released Date/Time: Dec 06, 2021 11:57 AM Reporting Lab: [facility] [address] [facility] [address] Performing Lab: [facility] [address] [facility] [address] TROPONIN II 0.03 0.00-0.29 Dec 06, 2021 [facility] P4 GLU,BUN,CREAT,LYTES,CA Speci men Type: PLASMA 12:00 PM [facility] Comment: Testin g Performed on Pham Police Stenographer (405) SN:[id number] Ordering Provid er: JELANI SÁNCHEZ Report Released Date/Time: Dec 06, 2021 11:57 AM Reporting Lab: [facility] [address] [facility] [address] Per[facility]: [facility] [address] [facility] [address] UREA NITROGEN 13 7-25 SODIUM 138 135-145 POTASSIUM 3.8 3.5-5.0 CHLORIDE 103 100-110 CARBON DIOXIDE 23 20-30 ANION GAP 12 4-16 GLUCOSE 105 H 65-100 CREATININE 0.90 0.5-1.5 CALCIUM 8.7 8.5-10.5 eGFR(CKD-EPI 2020) >90.0 >60 Dec 06, 2021 12:00 PM [facility] BNP(P) Sp ecimen Type: PLASMA Comment: Tests performed on Pham Police Stenographer (405) SN:[id number] Ordering Provid er: JELANI SÁNCHEZ Report Released Date/Time: Dec 06, 2021 11:57 AM Reporting Lab: [facility] [address] [facility] [address] Per[facility]: [facility] [address] [facility] [address] BNP(P) 224.8 H 10-100 Dec 06, 2021 [place] COVID-19+FLU/RSV DIAGNOSTIC Spe cimen Type: NASOPHARYNX 12:00 PM [facility] PANEL(405) Comment: Tests performed on Cepheid Genexpert (405) Critical results called to and read back by: ALESHIA WILKINSON RN 12/06/21 @ [id number] Ordering Provid er: JELANI SÁNCHEZ Report Released Date/Time: Dec 06, 2021 11:57 AM Reporting Lab: [place] [facility] [address] [address] Performing Lab: [place] [facility] [address] [address] FLU A(PCR) NEGATIVE NEGATIVE FLU B(PCR) NEGATIVE NEGATIVE RSV(PCR) NEGATIVE NEGATIVE COVID-19([id number]) DETECTED HH NO T DETECTED Dec 06, 2021 12:00 PM [place] [facility] CBC PROFILE Sp ecimen Type: BLOOD No comment enter ed. Ordering Provid er: JELANI SÁNCHEZ Report Released Date/Time: Dec 06, 2021 11:57 AM Reporting Lab: [place] [facility] [address] [address] Performing Lab: [facility] [address] [address] WBC 7.2 4.5-11.0 RBC 4.86 4.23-5.66 HGB [...] 2021 09:20 /min mm[Hg] RIVER PM [facility] Dec 13, 97.9 F 82 108/62 20 /min 96 % WHITE 2021 03:27 /min mm[Hg] RIVER PM [facility] Dec 13, 0 WHITE 2021 02:44 RIVER PM [facility] Dec 13, 0 WHITE 2021 08:15 R[place] AM [facility] Dec 13, 0 WHITE 2021 05:18 [place] AM [facility] Social History: [...] took place. Date/Time Smoking Status/Tobacco Use Comment [facility] Apr 01, 2020 01:16 PM [...] TOBACCO USE > 7 YEARS AGO CAREY MONTO[facility] May 19, 2016 03:55 PM QUIT TOBACCO USE IN PAST YEAR CAREY DOYLE [place] [facility] May 19, 2016 10:29 AM QUIT TOBACCO USE 1-7 YEARS AGO CAREY DOYLE [place] May 01, 2016 07:26 PM QUIT [...] W/WO CONTRAST: MARYELLEN LONG LUCAS LARES N [id number] -1950 [facility] Exm Date: DEC 13, 2021@12:57 Req Phys: ISATU TODD Loc: OP Unknown/0 12-15-2021@13:20 Img Loc: MRI IMAGING (OOS) Service: [facility] (Case [id number] COMPLETE) MRI ABDOMEN W/WO CONTRAST (M [facility]) CPT:58256 Reason for Study: further characterization of a [...] new lyphadenopathy REQUESTING MD: Isatu Todd PAGER: [phone] PHONE: [phone] Weight: 232.2 lb [105.32 kg] (12/12/2021 05:00) [...] patient will need to arrange for a automobile drivers to take him/her home after the MRI [...] 15, 2021 Date Verified: DEC 15, 2021 Paper Tube Grader E-Sig:/ES/MARYELLEN LONG Report: MRI ABDOMEN W/WO CONTRAST [...] MALIGNANCY Primary Interpreting Staff: Staff AMELIA THOMAS (Paper Tube Grader) / Dec 10, 2021 09:[address] ABDOMEN & PELVIS: RADIOLOGY,OUTSIDE [facility] LUCAS KRISHNAMURTHY N [id number] -1950 M SERVICE [facility] Exm Date: DEC 10, 2021@09:30 Req Phys: ISATU TODD Loc: [facility]/12-10@10:57 Img Loc: CT SCAN (OOS) Service: [facility] (Case [id number] COMPLETE) CT ABD & PELVIS WITHOUT CONT RAST (CT Detailed) CPT:36414 Reason for Study: 71 yo male with [...] RADIOLOGY [phone] to speak to the appropriate oscillograph technician. Report Status: Verified Date Reported: DEC 10, 2021 Date Verified: DEC 10, 2021 Paper Tube Grader E-Sig: Report: EXAM: CT abdomen and pelvis [...] portocaval lym ph nodes. READING PHYSICIAN: Ramone Munzo D.O. -[phone] 12/10/2021 10:55 EDT [facility] [phone] (For Medical Practitioner Use Only ) [address], [facility] [address], [address] [place] [address] Attention Patients / Veterans: If you have ques tions or concerns about these test results, please [facility] or [facility] team. Primary Diagnostic Code: SIGNIFICANT ABNORMALIT Y, ATTN NEEDED Primary Interpreting Staff: RADIOLOGY,OUTSIDE SERVICE, Staff Physician / Dec 09, 2021 07:34 AM BASPrincess (MODIFIED): JESSIE CHENEY TARA ER JCT LUCAS MEEK N [id number] -1950 M [facility] Exm Date: DEC 09, 2021@07:34 Req Phys: ISATU TODD Pat Loc: 1S MED/12-09@11:26 Img Loc: XRAY (OOS) Service: [facility] MEDICINE (Case 463 COMPLETE) DELISA (MODIFIED) (EUNICE stephenson) CPT:63699 Contrast Media : Barium Reason for Study: dysphagia ?esophageal spasm Clinical History: Report Status: Verified Date Reported: DEC 09, 2021 Date Verified: DEC 09, 2021 Paper Tube Grader E-Sig:/EMELY/JESSIE CHENEY Report: DELISA (MODIFIED) , 12/09/2021 TECHNIQUE: [...] REQUIRED Primary Interpreting Staff: JESSIE CHENEY, RADIOLOGIST (Paper Tube Grader) /TLC Dec 06, 2021 12:[address] CHEST (INCLUDES ADRENALS): JESSIE CHENEY [facility] [place] [facility] LUCAS MEEK N [id number] -1950 M [facility] Exm Date: DEC 06, 2021@12:59 Req Phys: JELANI SÁNCHEZ Pat Loc: [facility] ED DAYS M 1RD (Req'g Loc) Img Loc: CT SCAN (OOS) Service: Unknown (Case [id number] COMPLETE) CT THORAX W/O CONT (CT Detai led) CPT:92366 Reason for Study: Opacification right chest Clinical History: No contrast allergy BUN: 13 (12/06/21 12:00) CREATI: 0.90 (12/06/21 12:00) eGFR 05/16/21 09:43 52 L Weight: 232.6 lb [105.51 kg] (12/06/2021 11:40) BODY MASS INDEX - NO HEIGHTS FOUND Pager number: [phone] STAT orders MUST be called t o RADIOLOGY [phone] to speak to the appropriate oscillograph technician. Indications - Other: Opacification right chest, covid positive, lung cancer histo Report Status: Verified Date Reported: DEC 06, 2021 Date Verified: DEC 06, 2021 Paper Tube Grader E-Sig:/ES/JESSIE CHENEY Report: CT THORAX W/O CONT [...] REQUIRED Primary Interpreting Staff: JESSIE CHENEY, RADIOLOGIST (Paper Tube Grader) Primary Interpreting Resident: PRINCE CHAMPION, Resident /BR Dec 06, 2021 11:58 AM CHEST SINGLE VIEW: JESSIE CHENEY DOUGLAS N [id number] -1950 M [facility] Exm Date: DEC 06, 2021@11:58 Req Phys: JELANI SÁNCHEZ Pat Loc: [facility] ED DAYS M 1RD (Req'g Loc) Img Loc: XRAY (OOS) Service: Unknown (Case [id number] COMPLETE) CHEST SINGLE VIEW (RAD Detai led) CPT:26777 Proc Modifiers : PORTABLE EXAM Reason for Study: SOB, home covid test positive Clinical History: Report Status: Verified Date Reported: DEC 06, 2021 Date Verified: DEC 06, 2021 Paper Tube Grader E-Sig:/ES/JESSIE CHENEY Report: Exam type: Chest x-ray [...] REQUIRED Primary Interpreting Staff: JESSIE CHENEY, RADIOLOGIST (Paper Tube Grader) /TLC Pathology Reports: +/- 30 days of [...] TITLE: LR SURGICAL PATHOLOGY REPORT [facility] STANDARD TITLE: PATHOLOGY REPORT DATE OF NOTE: JAN 03, 2022@10:28:01 ENTRY DATE: JAN 03, 2022@10:28:01 AUTHOR: NIURKA MILLER COSIGNER: URGENCY: STATUS: COMPLETED $APHDR Reporting Lab: [facility] [CLIA# [id number]] [address] [place] [address] - - - - - - [...] automatically d ocumented from SURGERY package case #[id number] Field (#32) PRINCIPAL PRE-OP DIAGNOSIS, (#.72) OTHER [...] automatically d ocumented from SURGERY package case #[id number] Field (#34) PRINCIPAL POST-OP DIAG, (#.74) OTHER [...] Label: Lucas Meek Paperwork: Lucas Meek Cassette: [id number];..;KALYANI;.;405;[id number] Specimen is labeled: ES bx Received in formalin are several pieces of pale boyd and brown tissue, 1.2 x 0.7 cm in aggregate. Submitted entirely in 1 cassette [id number];..;KALYANI;.;048;[id number] SAW 12/15/2021 Microscopic exam: *+* MODIFIED REPORT [...] in rendering the final pathologic diagnosis. [address] [place] [address] CPT: 83348 /emely/ NIURKA Yeung MD Signed Jan 03, 2022@10:28 Performing Laboratory: Surgical Pathology Report Performed By: [facility] [CLIA# [id number]] [address] [place] [address] $FTR - - - - - [...] - - LUCAS MEEK STANDARD FORM 515 ID:[id number] SEX:M :1950 AGE: 71 LOC: SDM END PCP: Isatu Todd /emely/ NIURKA MILLER Staff Signed: 01/03/2022 10:28 Dec 21, 2021 11:46 AM LR SURGICAL PATHOLOGY REPORT: STEFANY MILLER [facility] LOCAL TITLE: LR SURGICAL PATHOLOGY REPORT [facility] STANDARD TITLE: PATHOLOGY REPORT DATE OF NOTE: DEC 21, 2021@11:46:59 ENTRY DATE: DEC 21, 2021@11:46:59 AUTHOR: NIURKA MILLER EXP COSIGNER: URGENCY: STATUS: COMPLETED $APHDR Reporting Lab: [facility] [CLIA# [id number]] [address] [place] [address] - - - - - - [...] automatically d ocumented from SURGERY package case #[id number] Field (#32) PRINCIPAL PRE-OP DIAGNOSIS, (#.72) OTHER [...] automatically d ocumented from SURGERY package case #[id number] Field (#34) PRINCIPAL POST-OP DIAG, (#.74) OTHER [...] Label: Lucas Meek Paperwork: Lucas Meek Cassette: [id number];..;KALYANI;.;405;[id number] Specimen is labeled: ES bx Received in formalin are several pieces of pale boyd and brown tissue, 1.2 x 0.7 cm in aggregate. Submitted entirely in 1 cassette [id number];..;MEEK;.;405;[id number] SAW 12/15/2021 Microscopic exam: DIAGNOSIS: A. 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 Kendell long. TIARA Coombs was notified on 12/21/21. The attending pathologist who signature mansoor ears on this report has reviewed all diagnostic slides and has edited t he gross and/or microscopic portion of this report in rendering the final pathologic diagnosis. [address] [address] CPT: 98906 /emely/ NIURKA Yeung MD Signed Dec 21, 2021@11:46 Performing Laboratory: Surgical Pathology Report Performed By: [facility] [CLIA# [id number]] [address] [place] [address] $FTR - - - - - [...] - - LUCAS MEEK STANDARD FORM 515 ID:[id number] SEX:M :1950 AGE: 71 LOC: SDM END PCP: Isatu Todd /emely/ NIURKA Yeung MD Signed: 12/21/2021 11:46 Dec 06, 2021 03:30 PM LR MICROBIOLOGY REPORT: ALEXYao [facility] Reporting Lab: [facility] [CLIA# [id number]] [address] [place] [address] Accession [UID]: [id number] [[id number]] Receiv ed: Dec 06, 2021@16:14 Collection sample: BLOOD CUL T BOTTLE(NIRMAL/AERO)Collection date: Dec 06, 2021 15:30 Site/Specimen: BLOOD Provider: JELANI SÁNCHEZ Comment on specimen: LAC Test(s) ordered: BLOOD CULTURE ANAEROBI C....... completed: Dec 12, 2021 06:18 * BACTERIOLOGY FINAL REPORT => Dec 12, 2021 06:1 8 TECH CODE: [id number] Bacteriology Remark(s): NO GROWTH IN 5 DAYS =--=--=--=--=--=--=--=--=--=--=--=--=--= --=--=--=--=--=--=--=--=--=--=--=--=-- Performing Laboratory: Bacteriology Report Performed By: [facility] [CLIA# [id number]] [address] [place] [address] Dec 06, 2021 03:30 PM LR MICROBIOLOGY REPORT: [facility] Reporting Lab: [facility] [CLIA# [id number]] [address] [place] [address] Accession [UID]: [id number] [[id number]] Receiv ed: Dec 06, 2021@16:14 Collection sample: BLOOD CUL T BOTTLE(NIRMAL/AERO)Collection date: Dec 06, 2021 15:30 Site/Specimen: BLOOD Provider: JELANI SÁNCHEZ Comment on specimen: LAC Test(s) ordered: BLOOD CULTURE AEROBIC. ........ completed: Dec 12, 2021 06:17 * BACTERIOLOGY FINAL REPORT => Dec 12, 2021 06:1 7 TECH CODE: [id number] Bacteriology Remark(s): NO GROWTH IN 5 DAYS =--=--=--=--=--=--=--=--=--=--=--=--=--= --=--=--=--=--=--=--=--=--=--=--=--=-- Performing Laboratory: Bacteriology Report Performed By: [facility] [CLIA# [id number]] [address] [place] [address] Encounter Notes: All associated encounter notes This section contains the clinical notes associated to the Encounter. Date/Time Encounter Note(s) Provider Source Dec 13, 2021 12:42 PM PHYSICAL THERAPY NOTE: ZAK ANAND WHI TE [facility] LOCAL TITLE: Physical Therapy Note [facility] STANDARD TITLE: PHYSICAL THERAPY NOTE DATE OF NOTE: DEC 13, 2021@12:42 ENTRY DATE: DEC 13, 2021@12:42:58 AUTHOR: ZAK ANAND EXP COSIGNER: URGENCY: STATUS: [...] re turn to home or rehab placement. Visit #2 S: Mr. Meek agrees to transport to stairs with use of wheelchair for assessment of stair climbing to be sure he will be able to get up the stairs to enter his home. He reports having R sided rail l ooking up the stairs. O: Received resting in bed this AM in no apparen t distress. FUNCTION: -Close supervision transfer into wheelchair. -Transported to stairs for sit to stand with carlos se supervision. -Up/down 6 stairs with use of R rail with contac t guard, which he reports his does for him when he goes up and down stair s. Reported 9/10 SOB after going up/down stairs, so given seated rest break prior to transport back to room. -Upon reaching room, SpO2 96% on room air, HR 13 5. A: Mr. Meek tolerated the activity well enough to be able to return home with assist of . P: PT to follow for mobility and strength traini ng with recommended discharge disposition home with services. Time in/out: 9:09-9:23 14 minutes 60015 Gait training 14 minutes /es/ ZAK ANAND Doctor of Physical Therapy licensed in [place], [place] Signed: 12/13/2021 15:46
--- OUTSIDE RECORDS SUMMARY | 2022-01-19 08:50 | XMS_ITS ---
DAILY HOSPITALIZATION DATA [facility] Encounter Summary Created on:December 13, 2021 Patient:LUCAS MEEK Sex:Male :1950 Author Organization [facility] Address [address] [place] [id number] Support Name Relationship Address Phone YUSRA MEEK Unavailable [address] [place] [address] YUSRA MEEK Unavailable [address] [place] [facility] [place] [address] CLAY MOSLEY Unavailable Unavailable SJ SANTACRUZ Unavailable [...] MEDICARE MEDICARE PART Jun 18, PART A [id number] DO KALYANI PATIENT (WNR) (M) A 2016 13A 1 U[place]AS MEDICARE MEDICARE PART Jun 18, PART B [id number] DO KALYANI PATIENT (WNR) (M) B 2017 13A 1 [place] MEDICARE MEDICARE PART Jun 18, PART B [id number] KALYANIDO PATIENT (WNR) (M) B 2017 VH81 2 [place] MEDICARE MEDICARE PART Jun 18, PART A [id number] DO KALYANI PATIENT (WNR) (M) A 2017 VH81 2 [place] UNITED MEDICARE MCR(W Jun [id number] Luz MEEK PATIENT HEALTHCARE ADVANTAGE NR) 2021 37 0 [facility] (WNR) Selected Encounter This section includes the information on record at [place] for the Encounter. Date/Time Encounter Type Encounter Description Reason Provider Source Dec 13, 2021 04:38 Inpatient Visit DAILY HOSPITALIZATION DATA PM IHE Encounter Template Text not used by IN [...] AM AMB[place]ATORY [place] N[place] [facility] Jan 06, 2022 02:00 PM [place] [facility] Jan 10, 2022 11:30 AM [facility] - [facility] Jan 24, 2022 08:00 [place] [facility] Feb 21, 2022 10:00 AM [place]UL[place]ORY [place] [facility] Mar 21, 2022 10:30 AM AMBULATORY - [...] The data comes from all [place] treatment [facility]. Test Date/Time Test Type Test Details Facility Name October 31, 2021 07:37 AM Consult Order [facility]ARE-EGD [facility] Cons Hand Booked [facility] November 15, 2021 10:37 AM Consult Order [facility] PLANO CARE-PODIATRY Cons Hand Booked [facility] [employer] Dec 06, 2021 12:52 PM [place]acy [place] In[place] Order [facility] Dec 06, 2021 03:24 PM [place]acy [place] [facility] Dec 06, 2021 03:40 PM [place] [facility] Dec 15, 2021 08:41 AM Consult Order SPEECH PATHOLOGY [place] OUT[place] Cons [facility] Hand Booked [facility] [employer] [facility] Jan 15, 2022 10:08 PM Consult Order [facility] PLANO CARE-PALLIATIVE CARE Cons Hand Booked [facility] Lab Results: +/- 30 days of [...] Range Comment Dec 15, 2021 06:43 AM [facility] CBC PROFILE Sp ecimen Type: BLOOD No comment enter ed. Ordering Provid er: ISATU TODD Report Released Date/Time: Dec 10, 2021 07:22 AM Reporting Lab: [facility] [address] [facility] [address] Performing Lab: [facility] [address] [address] WBC 5.7 4.5-11.0 RBC 4.22 L 4.23-5.66 [...] ABSOLUTE NRBC 0.00 0-0 Dec 15, 2021 [facility] P4 GLU,BUN,CREAT,LYTES,CA Speci men Type: PLASMA 06:43 AM [facility] Comment: Tests performed on Pham Follow Up Rep (405) SN:[id number] Ordering Provid er: ISATU TODD Report Released Date/Time: Dec 11, 2021 07:42 AM Reporting Lab: [facility] [address] [facility] [address] Performing Lab: [facility] [address] [facility] [address] UREA NITROGEN 9 7-25 SODIUM 137 135-145 POTASSIUM 3.8 3.5-5.0 CHLORIDE 105 100-110 CARBON DIOXIDE 26 20-30 ANION GAP 6 4-16 GLUCOSE 102 H 65-100 CREATININE 0.64 0.5-1.5 CALCIUM 8.1 L 8.5-10.5 eGFR(CKD-EPI 2020) >90.0 >60 Dec 14, 2021 [facility] CYTOGENETIC Specimen Type: ESOPHAGUS 02:59 PM [facility] FISH([facility] Comment: ~For T est: CYTOGENETIC FISH([facility]) ~FISH HER 2 NUE, FFPE See full report in [employer] Image display viewer/tab#LAB-Reference Ordering Provid er: NIURKA MILLER Report Released Date/Time: Dec 21, 2021 12:11 PM Reporting Lab: [facility] [address] [facility] [address] Performing Lab: [facility] CYTOGENETIC FISH([facility]) comment Dec 14, 2021 [place] P4 GLU,BUN,CREAT,LYTES,CA Speci men Type: PLASMA 06:27 AM [facility] Comment: Tests performed on Pham Follow Up Rep (405) SN:[id number] Ordering Provid er: ISATU TODD Report Released Date/Time: Dec 11, 2021 07:42 AM Reporting Lab: [facility] [address] [address] Performing Lab: [facility] [address] [facility] [address] UREA NITROGEN 10 7-25 SODIUM 137 135-145 [...] Lab: [facility] [address] [address] Performing Lab: [facility] [address] [address] WBC 6.0 4.5-11.0 RBC 4.29 4.23-5.66 HGB [...] GLU,BUN,CREAT,LYTES,CA Speci men Type: PLASMA 06:34 AM [facility] Comment: Tests performed on Lottay (405) SN:[id number] Ordering Provid er: ISATU TODD Report Released Date/Time: Dec 11, 2021 07:42 AM Reporting Lab: [facility] [address] [address] Performing Lab: [facility] [address] [address] UREA NITROGEN 12 7-25 SODIUM 136 135-145 [...] Lab: [facility] [address] [address] Performing Lab: [facility] [address] [address] WBC 5.6 4.5-11.0 RBC 4.28 4.23-5.66 HGB [...] GLU,BUN,CREAT,LYTES,CA Speci men Type: PLASMA 06:21 AM [facility] Comment: Tests performed on Lottay (405) SN:[id number] Ordering Provid er: ISATU TODD Report Released Date/Time: Dec 11, 2021 07:42 AM Reporting Lab: [facility] [address] [address] Performing Lab: [facility] [address] [address] UREA NITROGEN 11 7-25 SODIUM 139 135-145 [...] [facility] [address] [address] Performing Lab: [facility] [address] [address] WBC 5.5 4.5-11.0 RBC 4.37 4.23-5.66 HGB [...] 0.00 0-0 Dec 12, 2021 06:00 AM [employer] [facility] MAGNESIUM Sp ecimen Type: PLASMA Comment: Testin g Performed on Lottay (405) SN:[id number] Ordering Provid er: ISATU TODD Report Released Date/Time: Dec 12, 2021 08:24 AM Reporting Lab: [place] [facility] [address] [address] Performing Lab: [employer] [place] [facility]T [facility] [address] [address] MAGNESIUM 1.8 1.6-2.6 Dec 12, 2021 06:00 AM [employer]T [facility] PHOSPHORUS Sp ecimen Type: PLASMA Comment: Testin g Performed on Lottay (405) SN:[id number] Ordering Provid er: ISATU TODD Report Released Date/Time: Dec 12, 2021 08:24 AM Reporting Lab: [place] [facility]ubT [facility] [address] [address] Performing Lab: [place] [facility] [address] [address] PHOSPHORUS 3.1 2.5-5.0 Dec 11, 2021 06:15 AM [employer] [place] PikhubT [facility] ELECTROLYTES Sp ecimen Type: PLASMA Comment: Tests performed on Lottay (405) SN:[id number] Ordering Provid er: ISATU TODD Report Released Date/Time: Dec 10, 2021 07:22 AM Reporting Lab: [place] [facility]ubT [facility] [address] [address] Performing Lab: [place] [facility]T [facility] [address] [address] SODIUM 137 135-145 POTASSIUM 4.3 3.5-5.0 CHLORIDE 108 100-110 CARBON DIOXIDE 20 20-30 ANION GAP 9 4-16 Dec 11, 2021 06:15 AM [place] [employer] [facility] CBC PROFILE Sp ecimen Type: BLOOD Comment: Result s checked Ordering Provid er: ISATU TODD Report Released Date/Time: Dec 10, 2021 07:22 AM Reporting Lab: [place] [facility] [address] [address] Performing Lab: [place] [facility]ME[facility] [address] [address] WBC 5.8 4.5-11.0 RBC 4.37 4.23-5.66 HGB [...] ecimen Type: PLASMA Comment: Tests performed on Lottay (217) SN:[id number] Results checked Ordering Provid er: ISATU TODD Report Released Date/Time: Dec 11, 2021 07:44 AM Reporting Lab: [place] [facility] [facility] [address] [address] Performing Lab: [place] [facility] IN[facility] [address] [address] PHOSPHORUS 3.0 2.5-5.0 Dec 10, 2021 08:05 AM [place] [facility] MAGNESIUM Sp ecimen Type: PLASMA Comment: [place] [id number] on Dec 10, 2021@08:31 Tests performed on Lottay (405) SN:[id number] Ordering Provid er: ISATU TODD Report Released Date/Time: Dec 10, 2021 07:22 AM Reporting Lab: [place] [facility] [address] [place] [facility] [place] [address] Performing Lab: [place] [facility] [address] [place] [facility] [place] [address] MAGNESIUM 1.7 1.6-2.6 Dec 10, 2021 08:05 AM [place] UREA NITROGEN Specimen Type: PLASMA [facility] Comment: [place] [id number] on Dec 10, 2021@08:31 Tests performed on Lottay (405) SN:[id number] Ordering Provid er: ISATU TODD Report Released Date/Time: Dec 10, 2021 07:22 AM Reporting Lab: [place] [facility] [address] [place] [facility] [place] [address] Performing Lab: [place] [facility] [address] [place] [facility] [place] [address] UREA NITROGEN 8 7-25 Dec 10, 2021 08:05 AM [place] [facility] PHOSPHORUS Sp ecimen Type: PLASMA Comment: [place] [id number] on Dec 10, 2021@08:31 Tests performed on Lottay (405) SN:[id number] Ordering Provid er: ISATU TODD Report Released Date/Time: Dec 10, 2021 07:22 AM Reporting Lab: [place] [facility] [address] [place] [facility] [place] [address] Performing Lab: [place] [facility] [address] [place] [facility] [place] [address] PHOSPHORUS 1.8 L 2.5-5.0 Dec 10, 2021 08:05 AM [place] [facility] ELECTROLYTES Sp ecimen Type: PLASMA Comment: [place] [id number] on Dec 10, 2021@08:31 Tests performed on Lottay (405) SN:[id number] Ordering Provid er: ISATU TODD Report Released Date/Time: Dec 10, 2021 07:22 AM Reporting Lab: [place] [facility] [address] [facility] [address] Performing Lab: [facility] [address] [address] SODIUM 139 135-145 POTASSIUM 3.7 3.5-5.0 CHLORIDE 107 100-110 CARBON DIOXIDE 24 20-30 ANION GAP 8 4-16 Dec 10, 2021 08:05 AM [facility] CBC PROFILE Sp ecimen Type: BLOOD No comment enter ed. Ordering Provid er: ISATU TODD Report Released Date/Time: Dec 10, 2021 07:22 AM Reporting Lab: [facility] [address] [facility] [address] Performing Lab: [facility] [address] [address] WBC 7.0 4.5-11.0 RBC 4.54 4.23-5.66 HGB [...] 0.00 0-0 Dec 10, 2021 08:05 AM [facility] GLUCOSE Sp ecimen Type: PLASMA Comment: [place] [id number] on Dec 10, 2021@08:31 Tests performed on Lottay (405) SN:[id number] Ordering Provid er: ISATU TODD Report Released Date/Time: Dec 10, 2021 07:22 AM Reporting Lab: [place] [facility] [address] [facility] [address] Performing Lab: [place] [facility] [address] [address] GLUCOSE 144 H 65-100 Dec 10, 2021 08:05 [place] CREATININE WITH eGFR Specime n Type: PLASMA AM [facility] PANEL Comment: [place] [id number] on Dec 10, 2021@08:31 Tests performed on Pham Follow Up Rep (405) SN:[id number] Ordering Provid er: ISATU TODD Report Released Date/Time: Dec 10, 2021 07:22 AM Reporting Lab: [place] [facility] [address] [facility] [address] Performing Lab: [place] [facility] [address] [address] CREATININE 0.78 0.5-1.5 eGFR(CKD-EPI 2020) >90.0 >60 Dec 10, 2021 08:05 AM [place] [facility] CALCIUM Sp ecimen Type: PLASMA Comment: [place] [id number] on Dec 10, 2021@08:31 Tests performed on Pham [employer]am[employer] (405) SN:[id number] Ordering Provid er: ISATU TODD Report Released Date/Time: Dec 10, 2021 07:22 AM Reporting Lab: [place] [facility] [address] [facility] [address] Performing Lab: [place] [facility] [address] [address] CALCIUM 8.3 L 8.5-10.5 Dec 09, 2021 06:46 AM [place] [facility] MAGNESIUM Sp ecimen Type: PLASMA Comment: Tests performed on Pham [employer] (405) SN:[id number] Ordering Provid er: ISATU TODD Report Released Date/Time: Dec 08, 2021 10:23 AM Reporting Lab: [place] [facility] [address] [place] [facility] [place] [address] Performing Lab: [place] [facility] [address] [facility] [address] MAGNESIUM 1.6 1.6-2.6 Dec 09, 2021 [facility] P4 GLU,BUN,CREAT,LYTES,CA Speci men Type: PLASMA 06:46 AM [facility] Comment: Tests performed on Lottay (405) SN:[id number] Ordering Provid er: ISATU TODD Report Released Date/Time: Dec 08, 2021 05:00 PM Reporting Lab: [facility] [address] [address] Performing Lab: [facility] [address] [address] UREA NITROGEN 6 L 7-25 SODIUM 134 [...] Lab: [facility] [address] [address] Performing Lab: [facility] [address] [address] WBC 7.1 4.5-11.0 RBC 4.40 4.23-5.66 HGB [...] NRBC 0.00 0-0 Dec 08, 2021 [place] P4 GLU,BUN,CREAT,LYTES,CA Speci men Type: PLASMA 06:39 AM [facility] Comment: Testin g Performed on Lottay (405) SN:[id number] Ordering Provid er: ISATU TODD Report Released Date/Time: Dec 07, 2021 10:32 AM Reporting Lab: [facility] [address] [facility] [address] Performing Lab: [facility] [address] [facility] [address] UREA NITROGEN 6 L 7-25 SODIUM 136 135-145 POTASSIUM 3.3 L 3.5-5.0 CHLORIDE 104 100-110 CARBON DIOXIDE 22 20-30 ANION GAP 10 4-16 GLUCOSE 133 H 65-100 CREATININE 0.76 0.5-1.5 CALCIUM 8.4 L 8.5-10.5 eGFR(CKD-EPI 2020) >90.0 >60 Dec 08, 2021 06:39 AM [facility] MAGNESIUM Sp ecimen Type: PLASMA Comment: Testin g Performed on Lottay (405) SN:[id number] Ordering Provid er: ISATU TODD Report Released Date/Time: Dec 07, 2021 10:32 AM Reporting Lab: [facility] [address] [facility] [address] Performing Lab: [facility] [address] [facility] [address] MAGNESIUM 1.5 L 1.6-2.6 Dec 08, 2021 06:39 AM [facility] CBC PROFILE Sp ecimen Type: BLOOD No comment enter ed. Ordering Provid er: ISATU TODD Report Released Date/Time: Dec 07, 2021 10:32 AM Reporting Lab: [facility] [address] [facility] [address] Performing Lab: [facility] [address] [facility] WBC 8.4 4.5-11.0 [...] NRBC 0.00 0-0 Dec 07, 2021 06:42 [facility] LIVER PROFILE Specimen Typ e: PLASMA AM [facility] Comment: Tests performed on Lottay (405 SN:[id number] Ordering Provid er: PORFIRIO WALTERS Report Released Date/Time: Dec 06, 2021 06:57 PM Reporting Lab: [facility] [address] [facility] [address] Performing Lab: [facility] [address] [facility] [address] PROTEIN, TOTAL 5.7 L 6.0-8.5 ALBUMIN 2.4 L 3.2-5.0 BILIRUBIN, TOTAL 0.4 0.2-1.2 ALKALINE PHOSPHATASE 109 40-150 ALT(SGPT) 10 7-52 AST(SGOT) 15 5-34 FIB-4 SCORE 1.92 <2.67 Dec 07, 2021 06:42 AM [facility] PROFILE Specimen Type: BLOOD [facility] No comment enter ed. Ordering Provid er: PORFIRIO WALTERS Report Released Date/Time: Dec 06, 2021 06:57 PM Reporting Lab: [facility] [address] [facility] [address] Performing Lab: [place] [facility] [address] [facility] [address] WBC 5.7 4.5-11.0 RBC 4.15 L 4.23-5.66 [...] ABSOLUTE NRBC 0.00 0-0 Dec 07, 2021 [place] P4 GLU,BUN,CREAT,LYTES,CA Speci men Type: PLASMA 06:42 AM [facility] Comment: Tests performed on Lottay (037) SN:[id number] Ordering Provid er: PORFIRIO WALTERS Report Released Date/Time: Dec 06, 2021 06:57 PM Reporting Lab: [facility] [address] [facility] [address] Performing Lab: [place] [facility] [address] [facility] [address] UREA NITROGEN 9 7-25 SODIUM 135 135-145 POTASSIUM 3.5 3.5-5.0 CHLORIDE 103 100-110 CARBON DIOXIDE 22 20-30 ANION GAP 10 4-16 GLUCOSE 92 65-100 CREATININE 0.73 0.5-1.5 CALCIUM 8.0 L 8.5-10.5 eGFR(CKD-EPI 2020) >90.0 >60 Dec 07, [address] [place] [address] (ABS & Specimen Type: BLOOD 06:00 AM [facility] %) AUTOMATED Comment: Tests performed on Lottay (405) SN:[id number] Ordering Provid er: ISATU TODD Report Released Date/Time: Dec 07, 2021 10:28 AM Reporting Lab: [place] [facility] [address] [facility] [address] Performing Lab: [place] [facility] [address] [facility] [address] RETICULOCYTES (%) AUTOMATED 1.23 0. 6-2.0 RETICULOCYTES (ABS) AUTOMATED 0.052 0.030-0.090 Dec 06, 2021 09:45 [place] MRSA SURVL NARES Specimen Ty pe: NARES PM [facility] DNA No comment enter ed. Ordering Provid er: ALVARO VARGHESE Report Released Date/Time: Dec 07, 2021 02:20 AM Reporting Lab: [place] [facility] [address] [facility] [address] Performing Lab: [place] [facility] [address] [facility] [address] MRSA SURVL NARES DNA NEGATIVE NEGATIVE Dec 06, 2021 06:00 [place] URINALYSIS W/REFLEX TO Speci men Type: URINE PM [facility] CULTURE No comment enter ed. Ordering Provid er: JELANI SÁNCHEZ Report Released Date/Time: Dec 06, 2021 11:57 AM Reporting Lab: [place] [facility] [address] [facility] [address] Performing Lab: [place] [facility] [address] [facility] [address] URINE COLOR Arlin YELLOW SPECIFIC GRAVITY 1.029 [...] 21, [place]IANT Comment: https://www.cdc.gov/coronavirus/2019-ncov/cases-updates/variant- surveillance/variant-info.html The [employer]Access SARS CoV 2 [employer] Assay-GX is a next-generation sequencing (NGS) assa [facility] y that determine s the complete genome sequence of the SARS-CoV-2 virus. The assay contains variant-tolerant primers to broaden and improve the coverage for variant detection and increase the sensitivity 12:00 [facility] PNL(WH) of the panel to enable detection from lower viral titer samples. The assay is run on the [employer] Sequencer, which performs automated library preparation, sequencing, analysis, and reporting. PM The sequence an alysis includes determination of viral phylogenetic lineage by comparison to the reference strain Wuhan-Hu-1, GenBank: [id number]. Sequence determination may not be possible owing [...] and its performance characteristics determined by the [facility] Molecular Diagnostics Laboratory, which is certified under the Clinical Laboratory Improveme nt Amendments (C MARCO) as qualified to perform high complexity clinical laboratory testing. This test is validated for clinical use at [facility] and should not be regarded as [...] [facility] [address] [facility] [address] Performing Lab: [facility] [address] [facility] [address] SARS-CoV-2 CLADE() 22C (OMICRON) SARS-CoV-2 LINEAGE() BA.2.12.1 Dec 06, 2021 12:00 [facility] COVID-19 AG SCREEN Specimen Type: NASAL CAVITY PM [facility] PANEL BINAX(405) Comment: Testi ng Performed By: Mike Briscoe Ordering Provid er: JELANI SÁNCHEZ Report Released Date/Time: Dec 08, 2021 08:23 AM Reporting Lab: [facility] [address] [facility] [address] Performing Lab: [facility] [address] [facility] [address] COVID-19 AG SCRN(wrj BINAX) POSITIVE HH NE G Dec 06, 2021 [facility] P4 GLU,BUN,CREAT,LYTES,CA Speci men Type: PLASMA 12:00 PM [facility] Comment: Testin g Performed on Pham Follow Up Rep (405) SN:[id number] Ordering Provid er: JELANI SÁNCHEZ Report Released Date/Time: Dec 06, 2021 11:57 AM Reporting Lab: [facility] [address] [facility] [facility] [address] Performing Lab: [facility] [address] [facility] [address] UREA NITROGEN 13 7-25 SODIUM 138 135-145 POTASSIUM 3.8 3.5-5.0 CHLORIDE 103 100-110 CARBON DIOXIDE 23 20-30 ANION GAP 12 4-16 GLUCOSE 105 H 65-100 CREATININE 0.90 0.5-1.5 CALCIUM 8.7 8.5-10.5 eGFR(CKD-EPI 2020) >90.0 >60 Dec 06, 2021 12:00 PM [facility] LIVER PROFILE Sp ecimen Type: PLASMA Comment: Testin g Performed on Pham Follow Up Rep (405) SN:[id number] Ordering Provid er: JELANI SÁNCHEZ Report Released Date/Time: Dec 06, 2021 11:57 AM Reporting Lab: [place] [facility] [address] [facility] [facility] [address] Performing Lab: [facility] [address] [facility] [facility] [address] PROTEIN, TOTAL 6.6 6.0-8.5 ALBUMIN 2.8 L 3.2-5.0 BILIRUBIN, TOTAL 0.6 0.2-1.2 ALKALINE PHOSPHATASE 134 40-150 ALT(SGPT) 13 7-52 AST(SGOT) 18 5-34 FIB-4 SCORE 1.94 <2.67 Dec 06, 2021 12:00 PM [facility] TROPONIN II Sp ecimen Type: PLASMA Comment: Tests performed on Pham Follow Up Rep (405) SN:[id number] Ordering Provid er: JELANI SÁNCHEZ Report Released Date/Time: Dec 06, 2021 11:57 AM Reporting Lab: [facility] [facility] [address] [facility] [address] Performing Lab: [facility] [address] [facility] [facility] [address] TROPONIN II 0.03 0.00-0.29 Dec 06, 2021 12:00 PM [facility] BNP(P) Sp ecimen Type: PLASMA Comment: Tests performed on Pham Follow Up Rep (405) SN:[id number] Ordering Provid er: JELANI SÁNCHEZ Report Released Date/Time: Dec 06, 2021 11:57 AM Reporting Lab: [facility] [facility] [address] [facility] [address] Performing Lab: [facility] [address] [facility] [facility] [address] BNP(P) 224.8 H 10-100 Dec 06, 2021 [facility] COVID-[facility]+FLU/RSV DIAGNOSTIC Spe cimen Type: NASOPHARYNX 12:00 PM [facility] PANEL(405) Comment: Tests performed on Garmor Genexpert (405) Critical results called to and read back by: ALESHIA WILKINSON RN 12/06/21 @ 1312 Ordering Provid er: JELANI SÁNCHEZ Report Released Date/Time: Dec 06, 2021 11:57 AM Reporting Lab: [facility] T [facility] [address] [facility] [address] Performing Lab: [place] [facility] [address] [address] FLU A(PCR) NEGATIVE NEGATIVE FLU B(PCR) NEGATIVE NEGATIVE RSV(PCR) NEGATIVE NEGATIVE COVID-19([id number]) DETECTED HH NO T DETECTED Dec 06, 2021 12:00 PM [facility] Sp ecimen Type: BLOOD No comment enter ed. Ordering Provid er: JELANI SÁNCHEZ Report Released Date/Time: Dec 06, 2021 11:57 AM Reporting Lab: [facility] [address] [address] Performing Lab: [facility] [address] [address] WBC 7.2 4.5-11.0 RBC 4.86 4.23-5.66 HGB [...] 09:20 /min mm[Hg] RIVER PM [facility] Dec 13, 97.9 F 82 108/62 20 /min 96 % 2021 03:27 /min mm[Hg] RIVER PM T [facility] Dec 13, 0 WHITE 2021 02:44 RIVER PM T [facility] Dec 13, 0 WHITE 2021 08:15 RIVER AM [facility] Dec 13, 0 WHITE 2021 05:18 RIVER AM [facility] Social History: Smoking Status (Most current) [...] took place. Date/Time Smoking Status/Tobacco Use Comment [facility] Apr 01, 2020 01:16 PM QUIT [...] YEARS AGO [facility] May 25, 2016 [...] IN PAST YEAR [facility] DO[facility] May 01, 2016 11:19 AM QUIT TOBACCO USE IN PAST YEAR [facility] [place] [facility] Mar 16, 2016 12:50 PM V1-PT DECLINES REF TO TOBACCO [facility] DO[facility] CESS PRGM Mar 16, 2016 12:50 PM V1-PT THINKING ABOUT QUIT [facility] DOYLE [facility] TOBACCO USE Aug 12, 2015 08:48 AM CURRENT SMOKER [facility] Yates [facility] Radiology Reports: +/- 30 days of [...] W/WO CONTRAST: MARYELLEN LONG LUCAS LARES N [id number] -1950 [facility] Exm Date: DEC 13, 2021@12:57 Req Phys: ISATU TODD Loc: OP Unknown/0 12-15-2021@13:20 Img Loc: MRI IMAGING (OOS) Service: ZZGENERAL MEDICINE (Case [id number] COMPLETE) MRI ABDOMEN W/WO CONTRAST (M RI Detailed) CPT:10907 Reason for Study: further characterization of a [...] new lyphadenopathy REQUESTING MD: Isatu Todd PAGER: [phone] PHONE: [phone] Weight: 232.2 lb [105.32 kg] (12/12/2021 05:00) [...] patient will need to arrange for a package delivery driver to take him/her home after [...] 15, 2021 Date Verified: DEC 15, 2021 Rpg Developer E-Sig:/ES/MARYELLEN LONG Report: MRI ABDOMEN W/WO CONTRAST [...] MALIGNANCY Primary Interpreting Staff: Staff AMELIA THOMAS (Rpg Developer) / Dec 10, 2021 09:[address] ABDOMEN & PELVIS: RADIOLOGY,OUTSIDE [facility] LUCAS MEEK N [id number] -1950 M [facility] Ex Date: DEC 10, 2021@09:30 Req Phys: ISATU TODD Loc: 1S MED/12-10@10:57 Img Loc: CT SCAN (OOS) Service: [facility] MEDICINE (Case [id number] COMPLETE) CT ABD & PELVIS WITHOUT CONT RAST (CT Detailed) CPT:68212 Reason for Study: 71 yo male with [...] INDEX - NO HEIGHTS FOUND Pager number: [phone] STAT orders MUST be call ed to RADIOLOGY [phone] to speak to the appropriate food science technician. Report Status: Verified Date Reported: DEC 10, 2021 Date Verified: DEC 10, 2021 Rpg Developer E-Sig: Report: EXAM: CT abdomen and pelvis [...] ph nodes. READING PHYSICIAN: Ramone Munoz D.O. -[phone] 12/10/2021 10:55 EDT [facility] National Teleradiology Program [phone] (For Medical Practitioner Use Only ) [address] [facility], [facility] [address], [address] [place] [address] Attention Patients / Veterans: If you have ques tions or concerns about these test results, please contact your o rdering provider or primary care team. Primary Diagnostic Code: SIGNIFICANT ABNORMALIT Y, ATTN NEEDED Primary Interpreting Staff: RADIOLOGY,OUTSIDE SERVICE, Staff Physician / Dec 09, 2021 07:34 AM BASW (MODIFIED): JESSIE CHENEY TARA ER JCT LUCAS MEEK N [id number] -1950 [facility] Exm Date: DEC 09, 2021@07:34 Req Phys: ISATU TODD Josseline Loc: 1S MED/12-09@11:26 Img Loc: XRAY (OOS) Service: [facility] MEDICINE (Case [id number] COMPLETE) BASW (MODIFIED) (RAD Detaile d) CPT:04641 Contrast Media : Barium Reason for Study: dysphagia ?esophageal spasm Clinical History: Report Status: Verified Date Reported: DEC 09, 2021 Date Verified: DEC 09, 2021 Rpg Developer E-Sig:/ES/JESSIE CHENEY Report: BASW (MODIFIED) , 12/09/2021 [...] REQUIRED Primary Interpreting Staff: JESSIE CHENEY, RADIOLOGIST (Rpg Developer) /TLC Dec 06, 2021 12:[address] CHEST (INCLUDES ADRENALS): [facility]UC[facility] N [id number] -1950 [facility] Exm Date: DEC 06, 2021@12:59 Req Phys: GONZALO,JELANI J Pat Loc: [facility] ED DAYS M 1RD (Req'g Loc) Img Loc: CT SCAN (OOS) Service: Unknown (Case [id number] COMPLETE) CT THORAX W/O CONT (CT Detai led) CPT:50205 Reason for Study: Opacification right chest Clinical History: No contrast allergy BUN: 13 (12/06/21 12:00) CREATI: 0.90 (12/06/21 12:00) eGFR 05/16/21 09:43 52 L Weight: 232.6 lb [105.51 kg] (12/06/2021 11:40) BODY MASS INDEX - NO HEIGHTS FOUND Pager number: [phone] STAT orders MUST be called t o RADIOLOGY [phone] to speak to the appropriate food science technician. Indications - Other: Opacification right chest, covid positive, lung cancer histo Report Status: Verified Date Reported: DEC 06, 2021 Date Verified: DEC 06, 2021 Rpg Developer E-Sig:/ES/JESSIE CHENEY Report: CT THORAX W/O CONT [...] REQUIRED Primary Interpreting Staff: JESSIE CHENEY, RADIOLOGIST (Rpg Developer) Primary Interpreting Resident: PRINCE CHAMPION, Resident /BR Dec 06, 2021 11:58 AM CHEST SINGLE VIEW: JESSIE CHENEY DOUGLAS N [id number] -1950 M [facility] Exm Date: DEC 06, 2021@11:58 Req Phys: JELANI SÁNCHEZ Pat Loc: [facility] ED DAYS M 1RD (Req'g Loc) Img Loc: XRAY (OOS) Service: Unknown (Case [id number] COMPLETE) CHEST SINGLE VIEW (RAD Detai led) CPT:05816 Proc Modifiers : PORTABLE EXAM Reason for Study: SOB, home covid test positive Clinical History: Report Status: Verified Date Reported: DEC 06, 2021 Date Verified: DEC 06, 2021 Rpg Developer E-Sig:/ES/JESSIE CHENEY Report: Exam type: Chest x-ray [...] REQUIRED Primary Interpreting Staff: JESSIE CHENEY, RADIOLOGIST (Rpg Developer) /TLC Pathology Reports: +/- 30 days of [...] MILLER LOCAL TITLE: LR SURGICAL PATHOLOGY REPORT [facility] STANDARD TITLE: PATHOLOGY REPORT DATE OF NOTE: JAN 03, 2022@10:28:01 ENTRY DATE: JAN 03, 2022@10:28:01 AUTHOR: NIURKA MILLER EXP COSIGNER: URGENCY: STATUS: COMPLETED $APHDR Reporting Lab: [facility] [CLIA# [id number]] [address] [place] [address] - - - - - - [...] $TEXT Submitted by: ISATU TODD Date obtained: Mariozl rojas 2021 14:59 - - - - [...] automatically d ocumented from SURGERY package case #[id number] Field (#32) PRINCIPAL PRE-OP DIAGNOSIS, (#.72) OTHER [...] automatically d ocumented from SURGERY package case #[id number] Field (#34) PRINCIPAL POST-OP DIAG, (#.74) OTHER [...] Label: Lucas Meek Paperwork: Lucas Meek Cassette: [id number];..;KALYANI;.;405;[id number] Specimen is labeled: ES bx Received in formalin are several pieces of pale boyd and brown tissue, 1.2 x 0.7 cm in aggregate. Submitted entirely in 1 cassette [id number];..;KALYANI;.;405;[id number] SAW 12/15/2021 Microscopic exam: *+* MODIFIED REPORT *+* (Last modified: JAN 03, 2022@09:30:20 typed by NIURKA WADDELL) DIAGNOSIS: A. 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 Kendell long. TIARA Coombs was notified on 12/21/21. Modified on 01/03/22 to include report from [facility] stating that tumor is NEGATIVE for her2/ matheus amplification. The attending pathologist who signature mansoor ears on this report has reviewed all diagnostic slides and has edited t he gross and/or microscopic portion of this report in rendering the final pathologic diagnosis. [address] [address] CPT: 68010 /emely/ NIURKA Yeung MD Signed Jan 03, 2022@10:28 Performing Laboratory: Surgical Pathology Report Performed By: [facility] [CLIA# [id number]] [address] [place] [address] $FTR - - - - - [...] - - LUCAS MEEK STANDARD FORM 515 ID:[id number] SEX:M :1950 AGE: 71 LOC: SDM END PCP: Isatu Todd /emely/ NIURKA MILLER Staff Signed: 01/03/2022 10:28 Dec 21, 2021 11:46 AM LR SURGICAL PATHOLOGY REPORT: STEFANY MILLER [facility] LOCAL TITLE: LR SURGICAL PATHOLOGY REPORT [facility] STANDARD TITLE: PATHOLOGY REPORT DATE OF NOTE: DEC 21, 2021@11:46:59 ENTRY DATE: DEC 21, 2021@11:46:59 AUTHOR: NIURKA MILLER EXP COSIGNER: URGENCY: STATUS: COMPLETED $APHDR Reporting Lab: [facility] [CLIA# [id number]] [address] [place] [address] - - - - - - [...] automatically d ocumented from SURGERY package case #[id number] Field (#32) PRINCIPAL PRE-OP DIAGNOSIS, (#.72) OTHER [...] automatically d ocumented from SURGERY package case #[id number] Field (#34) PRINCIPAL POST-OP DIAG, (#.74) OTHER [...] Label: Lucas Meek Paperwork: Lucas Meek Cassette: [id number];..;KALYANI;.;405;[id number] Specimen is labeled: ES bx Received in formalin are several pieces of pale boyd and brown tissue, 1.2 x 0.7 cm in aggregate. Submitted entirely in 1 cassette [id number];..;KALYANI;.;405;[id number] SAW 12/15/2021 Microscopic exam: DIAGNOSIS: A. 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 eKndell long. TIARA Coombs was notified on 12/21/21. The attending pathologist who signature mansoor ears on this report has reviewed all diagnostic slides and has edited t he gross and/or microscopic portion of this report in rendering the final pathologic diagnosis. [address] [address] CPT: 44573 /emely/ NIURKA Yeung MD Signed Dec 21, 2021@11:46 Performing Laboratory: Surgical Pathology Report Performed By: [facility] [CLIA# [id number]] [address] [place] [address] $FTR - - - - - [...] - - LUCAS MEEK STANDARD FORM 515 ID:[id number] SEX:M :1950 AGE: 71 LOC: [facility] END PCP: Isatu Todd /charmaine Yeung MD Signed: 12/21/2021 11:46 Dec 06, 2021 03:30 PM LR MICROBIOLOGY REPORT: [facility] Reporting Lab: [facility] [CLIA# [id number]] [address] [place] [address] Accession [UID]: [id number] [[id number]] Receiv ed: Dec 06, 2021@16:14 Collection sample: BLOOD CUL T BOTTLE(NIRMAL/AERO)Collection date: Dec 06, 2021 15:30 Site/Specimen: BLOOD Provider: JELANI SÁNCHEZ Comment on specimen: LAC Test(s) ordered: BLOOD CULTURE ANAEROBI C....... completed: Dec 12, 2021 06:18 * BACTERIOLOGY FINAL REPORT => Dec 12, 2021 06:1 8 TECH CODE: [id number] Bacteriology Remark(s): NO GROWTH IN 5 DAYS =--=--=--=--=--=--=--=--=--=--=--=--=--= --=--=--=--=--=--=--=--=--=--=--=--=-- Performing Laboratory: Bacteriology Report Performed By: [facility] [CLIA# [id number]] [address] [place] [address] Dec 06, 2021 03:30 PM LR MICROBIOLOGY REPORT: [facility] Reporting Lab: [facility] [CLIA# [id number]] [address] [place] [address] Accession [UID]: [id number] [[id number]] Receiv ed: Dec 06, 2021@16:14 Collection sample: BLOOD CUL T BOTTLE(NIRMAL/AERO)Collection date: Dec 06, 2021 15:30 Site/Specimen: BLOOD Provider: JELANI SÁNCHEZ Comment on specimen: LAC Test(s) ordered: BLOOD CULTURE AEROBIC. ........ completed: Dec 12, 2021 06:17 * BACTERIOLOGY FINAL REPORT => Dec 12, 2021 06:1 7 TECH CODE: [id number] Bacteriology Remark(s): NO GROWTH IN 5 DAYS =--=--=--=--=--=--=--=--=--=--=--=--=--= --=--=--=--=--=--=--=--=--=--=--=--=-- Performing Laboratory: Bacteriology Report Performed By: [facility] [CLIA# [id number]] [address] [place] [address]
--- OUTSIDE RECORDS SUMMARY | 2022-01-19 08:50 | XMS_ITS | Encounter Summary ---
:1950 Author Organization [facility] Address [address] [place] [address] Support Name Relationship Address Phone YUSRA MEEK Unavailable [address] [place] [address] YUSRA MEEK Unavailable [address] [place] [facility] [place] [address] CLAY MOSLEY Unavailable Unavailable SJ SANTACRUZ Unavailable [...] MEDICARE MEDICARE PART Jun 18, PART A [id number] DO KALYANI PATIENT (WNR) (M) A 2016 13A 1 UGLAS MEDICARE MEDICARE PART Jun 18, PART B [id number] DO KALYANI PATIENT (WNR) (M) B 2016 13A 1 LAS MEDICARE MEDICARE PART Jun 18, PART A [id number] KALYANIDO PATIENT (WNR) (M) A 2017 VH81 2 LAS MEDICARE MEDICARE PART Jun 18, PART B [id number] DO KALYANI PATIENT (WNR) (M) B 2017 VH81 2 UGLAS UNITED MEDICARE MCR(Jun [id number] Luz MEEK PATIENT HEALTHCARE ADVANTAGE NR) 2021 37 0 [facility]AS [facility] (WNR) Selected Encounter This section includes the information on record at [place] for the Encounter. Date/Time Encounter Type Encounter Reason Provider Source Description Dec 13, 2021 INPATIENT OTOLARYNGOLOGY/ ICD-10-CM R13.14 [place] 03:44 PM CONSULTATION ENT Dysphagia, pharyngoesophageal phase with Provider Comments: Dysphagia, Pharyngoesophageal Phase IHE Encounter Template Text not used by [facility] Assessments - Encounter Diagnoses This section includes the primary and secondary diagnoses documented for the Encounter. Date/Time Primary/Secondary Diagnosis Name Provider Source Diagnosis Dec 13, 2021 PRIMARY Dysphagia, [place] 03:47 PM pharyngoesophageal phase [facility] Plan of Treatment: Future Appointments (+ 6 months) and Future Tests (+/- 45 days) The Plan of Treatment section includes future care activities for the patient from [facility] [place] [facility] This section includes future appointments [...] 2021 08:00 AM AMBULATORY - NONE [facility] Jan 06, 2022 02:00 PM AMBULATORY - REHAB MEDICINE [facility] Jan 10, 2022 11:30 AM AMBULATORY - MEDICINE [facility] Jan 24, 2022 08:00 AM AMBULATORY - REHAB MEDICINE [facility] TARAYao R [facility] Feb 21, 2022 10:00 AM AMBULATORY - SURGERY [facility] Mar 21, 2022 10:30 AM AMBULATORY [...] The data comes from all [place] treatment [facility]. Test Date/Time Test Type Test Details Facility Name October 31, 2021 07:37 AM Consult Order [facility] Cons Facing Gr[facility] Choice November 15, 2021 10:37 AM Consult Order [facility] CARE-PODIATRY Cons [facility]acing [facility] Choice Dec 06, 2021 12:52 PM Pharmacy [place] Infusion Order [facility] Dec 06, 2021 03:24 PM Pharmacy [place] Order [facility] Dec 06, 2021 03:40 PM Pharmacy - [place] Order [facility] Dec 15, 2021 08:41 AM Consult Order [facility]ECH PATH[facility] [place] Cons [facility] Jan 15, 2022 10:08 PM Consult Order [facility] CARE-PALLIATIVE CARE Cons [facility]acing [facility] Lab Results: +/- 30 days of [...] Interpretation Reference Range Comment Dec 15, 2021 [facility] GLU,BUN,CREAT,LYTES,CA Speci men Type: PLASMA 06:43 AM [facility] Comment: Tests performed on [employer] (405) SN:[id number] Ordering Provid er: ISATU TODD Report Released Date/Time: Dec 11, 2021 07:42 AM Reporting Lab: [facility] [address] [address] Performing Lab: [facility] [address] [address] UREA NITROGEN 9 7-25 SODIUM 137 135-145 POTASSIUM 3.8 3.5-5.0 CHLORIDE 105 100-110 CARBON DIOXIDE 26 20-30 ANION GAP 6 4-16 GLUCOSE 102 H 65-100 CREATININE 0.64 0.5-1.5 CALCIUM 8.1 L 8.5-10.5 eGFR(CKD-EPI 2020) >90.0 >60 Dec 15, 2021 06:43 AM [facility] CBC PROFILE Sp ecimen Type: BLOOD No comment enter ed. Ordering Provid er: ISATU TODD Report Released Date/Time: Dec 10, 2021 07:22 AM Reporting Lab: [facility] [address] [address] Performing Lab: [facility] [address] [address] WBC 5.7 4.5-11.0 RBC 4.22 L 4.23-5.66 [...] NRBC 0.00 0-0 Dec 14, [address] [facility] CYTOGENETIC Specimen Type: ESOPHAGUS 02:59 PM [facility] FISH([facility]) Comment: ~For T est: CYTOGENETIC FISH([facility]) ~FISH HER 2 NUE, FFPE See full report in [employer] Image display viewer/tab#LAB-Reference Ordering Provid er: NIURKA MILLER Report Released Date/Time: Dec 21, 2021 12:11 PM Reporting Lab: [facility] [address] [address] Performing Lab: [facility] CYTOGENETIC FISH([facility]) comment Dec 14, 2021 [facility] P4 GLU,BUN,CREAT,LYTES,CA Speci men Type: PLASMA 06:27 AM [facility] Comment: Tests performed on [employer] (405) SN:[id number] Ordering Provid er: ISATU TODD Report Released Date/Time: Dec 11, 2021 07:42 AM Reporting Lab: [facility] [address] [address] Performing Lab: [facility] [address] [address] UREA NITROGEN 10 7-25 SODIUM 137 135-145 [...] Reporting Lab: [facility] [address] [address] Performing Lab: [facility] [address] [address] WBC 6.0 4.5-11.0 RBC 4.29 4.23-5.66 HGB [...] [facility] Comment: Tests performed on [employer] (405) SN:[id number] Ordering Provid er: ISATU TODD Report Released Date/Time: Dec 11, 2021 07:42 AM Reporting Lab: [facility] [address] [address] Performing Lab: [facility] [address] [address] UREA NITROGEN 12 7-25 SODIUM 136 135-145 [...] 07:22 AM Reporting Lab: [facility] [address] [address] Performing Lab: [facility] [address] [address] WBC 5.6 4.5-11.0 RBC 4.28 4.23-5.66 HGB [...] 0-0 Dec 12, 2021 [facility] P4 GLU,BUN,CREAT,LYTES,CA Speci men Type: PLASMA 06:21 AM [facility] Comment: Tests performed on [employer] (405) SN:[id number] Ordering Provid er: ISATU TODD Report Released Date/Time: Dec 11, 2021 07:42 AM Reporting Lab: [facility] [address] [address] Performing Lab: [facility] [address] [facility] [address] UREA NITROGEN 11 7-25 SODIUM 139 135-145 POTASSIUM 4.1 3.5-5.0 CHLORIDE 107 100-110 CARBON DIOXIDE 24 20-30 ANION GAP 8 4-16 GLUCOSE 110 H 65-100 CREATININE 0.70 0.5-1.5 CALCIUM 8.3 L 8.5-10.5 eGFR(CKD-EPI 2020) >90.0 >60 Dec 12, 2021 06:21 AM [facility] CBC PROFILE Sp ecimen Type: BLOOD No comment enter ed. Ordering Provid er: ISATU TODD Report Released Date/Time: Dec 10, 2021 07:22 AM Reporting Lab: [facility] [address] [address] Performing Lab: [facility] [address] [facility] [address] WBC 5.5 4.5-11.0 RBC 4.37 4.23-5.66 HGB [...] Dec 12, 2021 06:00 AM [place] [facility] MAGNESIUM Sp ecimen Type: PLASMA Comment: Testin g Performed on [employer] (405) SN:[id number] Ordering Provid er: ISATU TODD Report Released Date/Time: Dec 12, 2021 08:24 AM Reporting Lab: [facility] [address] [address] Performing Lab: [place] [place] [facility] [address] [address] MAGNESIUM 1.8 1.6-2.6 Dec 12, 2021 06:00 AM [facility] PHOSPHORUS Sp ecimen Type: PLASMA Comment: Testin g Performed on [employer] (405) SN:[id number] Ordering Provid er: ISATU OTDD Report Released Date/Time: Dec 12, 2021 08:24 AM Reporting Lab: [place] [facility] [address] [address] Performing Lab: [facility] [place] [facility] [address] [address] PHOSPHORUS 3.1 2.5-5.0 Dec 11, 2021 06:15 AM [place] [facility] ELECTROLYTES Sp ecimen Type: PLASMA Comment: Tests performed on [employer] (405) SN:[id number] Ordering Provid er: ISATU TODD Report Released Date/Time: Dec 10, 2021 07:22 AM Reporting Lab: [facility] [address] [address] Performing Lab: [facility] [address] [address] SODIUM 137 135-145 POTASSIUM 4.3 3.5-5.0 CHLORIDE 108 100-110 CARBON DIOXIDE 20 20-30 ANION GAP 9 4-16 Dec 11, 2021 06:15 AM [facility] CBC PROFILE Sp ecimen Type: BLOOD Comment: Result s checked Ordering Provid er: ISATU TODD Report Released Date/Time: Dec 10, 2021 07:22 AM Reporting Lab: [facility] [address] [address] Performing Lab: [facility] [address] [address] WBC 5.8 4.5-11.0 RBC 4.37 4.23-5.66 HGB [...] 0.00 0-0 Dec 11, 2021 06:00 AM [facility] PHOSPHORUS Sp ecimen Type: PLASMA Comment: Tests performed on [employer] (405) SN:[id number] Results checked Ordering Provid er: ISATU TODD Report Released Date/Time: Dec 11, 2021 07:44 AM Reporting Lab: [place] [facility] [address] [facility] [place] [address] Performing Lab: [place] [facility] [address] [place] [facility] [place] [address] PHOSPHORUS 3.0 2.5-5.0 Dec 10, 2021 08:05 AM [place] [facility] MAGNESIUM Sp ecimen Type: PLASMA Comment: [place] [id number] on Dec 10, 2021@08:31 Tests performed on [employer] BCKSTGR (405) SN:[id number] Ordering Provid er: ISATU TODD Report Released Date/Time: Dec 10, 2021 07:22 AM Reporting Lab: [place] [facility] [address] [place] [facility] [address] Performing Lab: [place] [facility] [address] [place] [facility] [place] [address] MAGNESIUM 1.7 1.6-2.6 Dec 10, 2021 08:05 AM [place] [facility] PHOSPHORUS Sp ecimen Type: PLASMA Comment: [place] [id number] on Dec 10, 2021@08:31 Tests performed on [employer] (405) SN:[id number] Ordering Provid er: ISATU TODD Report Released Date/Time: Dec 10, 2021 07:22 AM Reporting Lab: [place] [facility] [address] [facility] [place] [address] Performing Lab: [place] [facility] [address] [place] [facility] [place] [address] PHOSPHORUS 1.8 L 2.5-5.0 Dec 10, 2021 08:05 AM [place] UREA NITROGEN Specimen Type: PLASMA [facility] Comment: [place] [id number] on Dec 10, 2021@08:31 Tests performed on [employer] (405) SN:[id number] Ordering Provid er: ISATU TODD Report Released Date/Time: Dec 10, 2021 07:22 AM Reporting Lab: [place] [facility] [address] [place] [facility] [address] Performing Lab: [place] [facility] [address] [address] UREA NITROGEN 8 7-25 Dec 10, 2021 08:05 AM [place] [facility] CALCIUM Sp ecimen Type: PLASMA Comment: Added by Ligia on Dec 10, 2021@08:31 Tests performed on [employer] (405) SN:[id number] Ordering Provid er: ISATU TODD Report Released Date/Time: Dec 10, 2021 07:22 AM Reporting Lab: [place] [facility] [address] [address] Performing Lab: [place] [facility] [address] [address] CALCIUM 8.3 L 8.5-10.5 Dec 10, 2021 08:05 AM [place] [facility] ELECTROLYTES Sp ecimen Type: PLASMA Comment: Added by Ligia on Dec 10, 2021@08:31 Tests performed on [employer] (405) SN:[id number] Ordering Provid er: ISATU TODD Report Released Date/Time: Dec 10, 2021 07:22 AM Reporting Lab: [place] [facility] [address] [address] Performing Lab: [place] [facility] [address] [address] SODIUM 139 135-145 POTASSIUM 3.7 3.5-5.0 CHLORIDE 107 100-110 CARBON DIOXIDE 24 20-30 ANION GAP 8 4-16 Dec 10, 2021 08:05 [place] CREATININE WITH eGFR Specime n Type: PLASMA AM [facility] PANEL Comment: Added by Ligia on Dec 10, 2021@08:31 Tests performed on [employer] (405) SN:[id number] Ordering Provid er: ISATU TODD Report Released Date/Time: Dec 10, 2021 07:22 AM Reporting Lab: [place] [facility] [address] [address] Performing Lab: [place] [facility] [address] [address] CREATININE 0.78 0.5-1.5 eGFR(CKD-EPI 2020) >90.0 >60 Dec 10, 2021 08:05 AM [place] [facility] GLUCOSE Sp ecimen Type: PLASMA Comment: Added by Ligia on Dec 10, 2021@08:31 Tests performed on [employer] (405) SN:[id number] Ordering Provid er: ISATU TODD Report Released Date/Time: Dec 10, 2021 07:22 AM Reporting Lab: [facility] [address] [address] Performing Lab: [facility] [address] [address] GLUCOSE 144 H 65-100 Dec 10, 2021 08:05 AM [facility] CBC PROFILE Sp ecimen Type: BLOOD No comment enter ed. Ordering Provid er: ISATU TODD Report Released Date/Time: Dec 10, 2021 07:22 AM Reporting Lab: [facility] [address] [address] Performing Lab: [facility] [address] [address] WBC 7.0 4.5-11.0 RBC 4.54 4.23-5.66 HGB [...] ecimen Type: PLASMA Comment: Tests performed on [employer] (405) SN:[id number] Ordering Provid er: ISATU TODD Report Released Date/Time: Dec 08, 2021 10:23 AM Reporting Lab: [facility] [address] [address] Performing Lab: [place] [facility] [address] [address] MAGNESIUM 1.6 1.6-2.6 Dec 09, 2021 [place] P4 GLU,BUN,CREAT,LYTES,CA Speci men Type: PLASMA 06:46 AM [facility] Comment: Tests performed on [employer] (405) SN:[id number] Ordering Provid er: ISATU TODD Report Released Date/Time: Dec 08, 2021 05:00 PM Reporting Lab: [place] [facility] [address] [address] Performing Lab: [facility] [address] [address] UREA NITROGEN 6 L 7-25 SODIUM 134 L 135-145 POTASSIUM 3.7 3.5-5.0 CHLORIDE 103 100-110 CARBON DIOXIDE 23 20-30 ANION GAP 8 4-16 GLUCOSE 112 H 65-100 CREATININE 0.70 0.5-1.5 CALCIUM 8.1 L 8.5-10.5 eGFR(CKD-EPI 2020) >90.0 >60 Dec 09, 2021 06:46 AM [place] [facility] CBC PROFILE Sp ecimen Type: BLOOD No comment enter ed. Ordering Provid er: ISATU TODD Report Released Date/Time: Dec 08, 2021 05:00 PM Reporting Lab: [place] [facility] [address] [address] Performing Lab: [place] [facility] [address] [address] WBC 7.1 4.5-11.0 RBC 4.40 4.23-5.66 HGB [...] 0.00 0-0 Dec 08, 2021 06:39 AM [facility] MAGNESIUM Sp ecimen Type: PLASMA Comment: Testin g Performed on [employer] (405) SN:[id number] Ordering Provid er: ISATU TODD Report Released Date/Time: Dec 07, 2021 10:32 AM [facility] [address] [address] Performing Lab: [facility] [address] [address] MAGNESIUM 1.5 L 1.6-2.6 Dec 08, 2021 [facility] P4 GLU,BUN,CREAT,LYTES,CA Speci men Type: PLASMA 06:39 AM [facility] Comment: Testin g Performed on [employer] (405) SN:[id number] Ordering Provid er: ISATU TODD Report Released Date/Time: Dec 07, 2021 10:32 AM Reporting Lab: [facility] [address] [address] Performing Lab: [facility] [address] [address] UREA NITROGEN 6 L 7-25 SODIUM 136 135-145 POTASSIUM 3.3 L 3.5-5.0 CHLORIDE 104 100-110 CARBON DIOXIDE 22 20-30 ANION GAP 10 4-16 GLUCOSE 133 H 65-100 CREATININE 0.76 0.5-1.5 CALCIUM 8.4 L 8.5-10.5 eGFR(CKD-EPI 2020) >90.0 >60 Dec 08, 2021 06:39 AM [facility] CBC PROFILE Sp ecimen Type: BLOOD No comment enter ed. Ordering Provid er: ISATU TODD Report Released Date/Time: Dec 07, 2021 10:32 AM Reporting Lab: [facility] [address] [address] Performing Lab: [facility] [address] [address] WBC 8.4 4.5-11.0 RBC 4.75 4.23-5.66 HGB [...] ABSOLUTE NRBC 0.00 0-0 Dec 07, 2021 [facility] P4 GLU,BUN,CREAT,LYTES,CA Speci men Type: PLASMA 06:42 AM [facility] Comment: Tests performed on [employer] (405) SN:[id number] Ordering Provid er: PORFIRIO WALTERS Report Released Date/Time: Dec 06, 2021 06:57 PM Reporting Lab: [place] [facility] [address] [address] Performing Lab: [facility] [address] [address] UREA NITROGEN 9 7-25 SODIUM 135 135-145 POTASSIUM 3.5 3.5-5.0 CHLORIDE 103 100-110 CARBON DIOXIDE 22 20-30 ANION GAP 10 4-16 GLUCOSE 92 65-100 CREATININE 0.73 0.5-1.5 CALCIUM 8.0 L 8.5-10.5 eGFR(CKD-EPI 2020) >90.0 >60 Dec 07, 2021 06:42 [place] LIVER PROFILE Specimen Typ e: PLASMA AM [facility] Comment: Tests performed on [employer] (405) SN:[id number] Ordering Provid er: PORFIRIO WALTERS Report Released Date/Time: Dec 06, 2021 06:57 PM Reporting Lab: [facility] [address] [address] Performing Lab: [facility] [address] [address] PROTEIN, TOTAL 5.7 L 6.0-8.5 ALBUMIN 2.4 L 3.2-5.0 BILIRUBIN, TOTAL 0.4 0.2-1.2 ALKALINE PHOSPHATASE 109 40-150 ALT(SGPT) 10 7-52 AST(SGOT) 15 5-34 FIB-4 SCORE 1.92 <2.67 Dec 07, 2021 06:42 AM [place] CBC PROFILE Specimen Type: BLOOD [facility] No comment enter ed. Ordering Provid er: PORFIRIO WALTERS Report Released Date/Time: Dec 06, 2021 06:57 PM Reporting Lab: [facility] [address] [address] Performing Lab: [facility] [address] [address] WBC 5.7 4.5-11.0 RBC 4.15 L 4.23-5.66 [...] ABSOLUTE NRBC 0.00 0-0 Dec 07, [address] [place] [address] (ABS & Specimen Type: BLOOD 06:00 AM [facility] %) AUTOMATED Comment: Tests performed on [employer] (405) SN:[id number] Ordering Provid er: ISATU TODD Report Released Date/Time: Dec 07, 2021 10:28 AM Reporting Lab: [facility] [address] [address] Performing Lab: [facility] [address] [address] RETICULOCYTES (%) AUTOMATED 1.23 0. 6-2.0 RETICULOCYTES (ABS) AUTOMATED 0.052 0.030-0.090 Dec 06, 2021 09:45 [place] MRSA SURVL NARES Specimen Ty pe: NARES PM [facility] DNA No comment enter ed. Ordering Provid er: ALVARO VARGHESE Report Released Date/Time: Dec 07, 2021 02:20 AM Reporting Lab: [facility] [address] [address] Performing Lab: [facility] [address] [address] MRSA SURVL NARES DNA NEGATIVE NEGATIVE Dec 06, 2021 06:00 [place] URINALYSIS W/REFLEX TO Speci men Type: URINE PM [facility] CULTURE No comment enter ed. Ordering Provid er: JELANI SÁNCHEZ Report Released Date/Time: Dec 06, 2021 11:57 AM Reporting Lab: [facility] [address] [address] Performing Lab: [facility] [address] [address] URINE COLOR Arlin YELLOW SPECIFIC GRAVITY 1.029 [...] 21, [place] Comment: https://www.cdc.gov/coronavirus/2019-ncov/cases-updates/variant- surveillance/variant-info.html The [employer] SARS CoV 2 DEUS Research Assay-GX is a next-generation sequencing (NGS) assa 2021 [facility] SEQUENCING y that determine s the complete genome sequence of the SARS-CoV-2 virus. The assay contains variant-tolerant primers to broaden and improve the coverage for variant detection and increase the sensitivity 12:00 [facility] PNL() of the panel to enable detection from lower viral titer samples. The assay is run on the [employer] Sequencer, which performs automated library preparation, sequencing, analysis, and reporting. PM The sequence an alysis includes determination of viral phylogenetic lineage by comparison to the reference strain Wuhan-Hu-1, GenBank: [id number]. Sequence determination may not be possible owing [...] and its performance characteristics determined by the [facility] Molecular [facility]ostics Laboratory, which is certified under the Clinical Laboratory Improveme nt Amendments (C MARCO) as qualified to perform high complexity clinical laboratory testing. This test is validated for clinical use at [facility] and should not be regarded as investigational or for research. The FDA does not require this test to go through premarket FDA review, and therefore it has not been cleared or approved by the FDA. This report was reviewed and approved by the on-service pathologist. Ordering Provid er: JELANI SÁNCHEZ Report Released Date/Time: Dec 06, 2021 01:13 PM Reporting Lab: [facility] [address] [address] Performing Lab: [facility] [address] [address] SARS-CoV-2 CLADE() 22C (OMICRON) SARS-CoV-2 LINEAGE() BA.2.12.1 Dec 06, 2021 12:00 [facility] COVID-19 AG SCREEN Specimen Type: NASAL CAVITY PM [facility] PANEL BINAX(405) Comment: Testi ng Performed By: Mike Briscoe Ordering Provid er: JELANI SÁNCHEZ Report Released Date/Time: Dec 08, 2021 08:23 AM Reporting Lab: [facility] [address] [address] [facility]: [facility] [address] [address] COVID-19 AG SCRN(wrj BINAX) POSITIVE HH NE G Dec 06, 2021 12:00 PM [facility] LIVER PROFILE Sp ecimen Type: PLASMA Comment: Testin g Performed on [employer] (405) SN:[id number] Ordering Provid er: JELANI SÁNCHEZ Report Released Date/Time: Dec 06, 2021 11:57 AM Reporting Lab: [facility] [address] [address] Performing Lab: [facility] [address] [address] PROTEIN, TOTAL 6.6 6.0-8.5 ALBUMIN 2.8 L 3.2-5.0 BILIRUBIN, TOTAL 0.6 0.2-1.2 ALKALINE PHOSPHATASE 134 40-150 ALT(SGPT) 13 7-52 AST(SGOT) 18 5-34 FIB-4 SCORE 1.94 <2.67 Dec 06, 2021 12:00 PM [facility] TROPONIN II Sp ecimen Type: PLASMA Comment: Tests performed on Pham BCKSTGR (405) SN:[id number] Ordering Provid er: JELANI SÁNCHEZ Report Released Date/Time: Dec 06, 2021 11:57 AM Reporting Lab: [facility] [address] [address] Performing Lab: [facility] [address] [address] TROPONIN II 0.03 0.00-0.29 Dec 06, 2021 [facility] P4 GLU,BUN,CREAT,LYTES,CA Speci men Type: PLASMA 12:00 PM [facility] Comment: Testin g Performed on Pham BCKSTGR (405) SN:[id number] Ordering Provid er: JELANI SÁNCHEZ Report Released Date/Time: Dec 06, 2021 11:57 AM Reporting Lab: [facility] [address] [address] Performing Lab: [facility] [address] [address] UREA NITROGEN 13 7-25 SODIUM 138 135-145 POTASSIUM 3.8 3.5-5.0 CHLORIDE 103 100-110 CARBON DIOXIDE 23 20-30 ANION GAP 12 4-16 GLUCOSE 105 H 65-100 CREATININE 0.90 0.5-1.5 CALCIUM 8.7 8.5-10.5 eGFR(CKD-EPI 2020) >90.0 >60 Dec 06, 2021 12:00 PM [facility] BNP(P) Sp ecimen Type: PLASMA Comment: Tests performed on Pham Shirt Bander (405) SN:[id number] Ordering Provid er: JELANI SÁNCHEZ Report Released Date/Time: Dec 06, 2021 11:57 AM Reporting Lab: [facility] [address] [address] Performing Lab: [facility] [address] [address] BNP(P) 224.8 H 10-100 Dec 06, 2021 [place] COVID-19+FLU/RSV DIAGNOSTIC Spe cimen Type: NASOPHARYNX 12:00 PM [facility] PANEL(405) Comment: Tests performed on Snapjoy Genexpert (405) Critical results called to and read back by: ALESHIA WILKINSON RN 12/06/21 @ 1312 Ordering Provid er: JELANI SÁNCHEZ Report Released Date/Time: Dec 06, 2021 11:57 AM Reporting Lab: [facility] [address] [address] Performing Lab: [facility] [address] [address] FLU A(PCR) NEGATIVE NEGATIVE FLU B(PCR) NEGATIVE NEGATIVE RSV(PCR) NEGATIVE NEGATIVE COVID-19([id number]) DETECTED HH NO T DETECTED Dec 06, 2021 12:00 PM [facility] CBC PROFILE Sp ecimen Type: BLOOD No comment enter ed. Ordering Provid er: JELANI SÁNCHEZ Report Released Date/Time: Dec 06, 2021 11:57 AM Reporting Lab: [facility] [address] [address] Performing Lab: [facility] [address] [address] WBC 7.2 4.5-11.0 RBC 4.86 4.23-5.66 HGB [...] WHITE 2021 09:20 /min mm[Hg] [place] [facility] Dec 13, 97.9 F 82 108/62 20 /min 96 % WHITE 2021 03:27 /min mm[Hg] [facility] [facility] Dec 13, 0 WHITE 2021 02:44 [place] [facility] Dec 13, 0 WHITE 2021 08:15 [place] [facility] Dec 13, 0 WHITE 2021 05:18 [place] [facility] Social History: Smoking Status (Most [...] took place. Date/Time Smoking Status/Tobacco Use Comment [facility] Apr 01, 2020 01:16 PM [...] TOBACCO USE IN PAST YEAR [facility] May 23, 2016 06:57 PM QUIT TOBACCO USE > 7 YEARS AGO [facility] May 19, 2016 03:55 PM QUIT TOBACCO USE IN PAST YEAR [facility] May 19, 2016 10:29 AM QUIT TOBACCO USE 1-7 YEARS AGO [facility] May 01, 2016 07:26 PM QUIT TOBACCO USE IN PAST YEAR [facility] May 01, 2016 03:11 PM QUIT TOBACCO USE IN PAST YEAR [facility] May 01, 2016 11:19 AM QUIT TOBACCO USE IN PAST YEAR [facility] Mar 16, 2016 12:50 PM V1-PT DECLINES REF TO TOBACCO [facility] CESS PRGM Mar 16, 2016 12:50 PM V1-PT THINKING ABOUT QUIT [facility] TOBACCO USE Aug 12, 2015 08:48 AM CURRENT SMOKER [facility] Yates [facility] Radiology Reports: +/- 30 days of [...] W/WO CONTRAST: MARYELLEN LONG Gorge MEEKLUCAS N [id number] -1950 [facility] Exm Date: DEC 13, 2021@12:57 Req Phys: ISATU TODD Loc: OP Unknown/0 12-15-2021@13:20 Img Loc: MRI IMAGING (OOS) Service: [facility]GENERAL MEDICINE (Case [id number] COMPLETE) MRI ABDOMEN W/WO CONTRAST (M RI Detailed) CPT:66004 Reason for Study: further characterization of a [...] new lyphadenopathy REQUESTING MD: Isatu Todd PAGER: [phone] PHONE: [phone] Weight: 232.2 lb [105.32 kg] (12/12/2021 05:00) [...] 15, 2021 Date Verified: DEC 15, 2021 Discharge Planner E-Sig:/ES/MARYELLEN LONG Report: MRI ABDOMEN W/WO CONTRAST [...] MALIGNANCY Primary Interpreting Staff: Staff AMELIA THOMAS (Discharge Planner) / Dec 10, 2021 09:[address] ABDOMEN & PELVIS: RADIOLOGY,OUTSIDE [facility] [place] LUCAS MEEK N [id number] -1950 [facility] Ex Date: DEC 10, 2021@09:30 Req Phys: ISATU TODD Loc: 1S MED/12-10@10:57 Img Loc: CT SCAN (OOS) Service: [facility] (Case [id number] COMPLETE) CT ABD & PELVIS WITHOUT CONT RAST (CT Detailed) CPT:16177 Reason for Study: 71 yo male with [...] [phone] to speak to the appropriate solar energy technician. Report Status: Verified Date Reported: DEC 10, 2021 Date Verified: DEC 10, 2021 Discharge Planner E-Sig: Report: EXAM: CT abdomen and pelvis [...] ph nodes. READING PHYSICIAN: Ramone Munoz D.O. [phone] 12/10/2021 10:[address] [facility] [employer] [phone] (For Medical Practitioner Use Only ) [address], [facility] [address], [address] [place] [address] Attention Patients / Veterans: If you have ques tions or concerns about these test results, please contact your o rdering provider or primary care team. Primary Diagnostic Code: SIGNIFICANT ABNORMALIT Y, ATTN NEEDED Primary Interpreting Staff: RADIOLOGY,OUTSIDE SERVICE, Staff Physician / Dec 09, 2021 07:34 AM BASW (MODIFIED): [facility] LUCAS MEEK N [id number] -1950 [facility] Exm Date: DEC 09, 2021@07:34 Req Phys: ISATU TODD Loc: 1S MED/12-09@11:26 Img Loc: XRAY (OOS) Service: [facility] MEDICINE (Case [id number] COMPLETE) BASW (MODIFIED) (EUNICE stephenson) CPT:19776 Contrast Media : Barium Reason for Study: dysphagia ?esophageal spasm Clinical History: Report Status: Verified Date Reported: DEC 09, 2021 Date Verified: DEC 09, 2021 Discharge Planner E-Sig:/ES/JESSIE CHENEY Report: BASW (MODIFIED) , 12/09/2021 [...] REQUIRED Primary Interpreting Staff: JESSIE CHENEY, RADIOLOGIST (Discharge Planner) /TLC Dec 06, 2021 12:[address] CHEST (INCLUDES ADRENALS): JESSIE CHENEY [facility] T LUCAS MEEK N [id number] -1950 M [facility] Exm Date: DEC 06, 2021@12:59 Req Phys: JELANI SÁNCHEZ Loc: [facility] ED DAYS M 1RD (Req'g Loc) Img Loc: CT SCAN (OOS) Service: Unknown (Case [id number] COMPLETE) CT THORAX W/O CONT (CT Detai led) CPT:81644 Reason for Study: Opacification right chest Clinical History: No contrast allergy BUN: 13 (12/06/21 12:00) CREATI: 0.90 (12/06/21 12:00) eGFR 05/16/21 09:43 52 L Weight: 232.6 lb [105.51 kg] (12/06/2021 11:40) BODY MASS INDEX - NO HEIGHTS FOUND Pager number: [phone] STAT orders MUST be called t o RADIOLOGY [phone] to speak to the appropriate solar energy technician. Indications - Other: Opacification right chest, covid positive, lung cancer histo Report Status: Verified Date Reported: DEC 06, 2021 Date Verified: DEC 06, 2021 Discharge Planner E-Sig:/ES/JESSIE CHENEY Report: CT THORAX W/O CONT [...] REQUIRED Primary Interpreting Staff: JESSIE CHENEY, RADIOLOGIST (Discharge Planner) Primary Interpreting Resident: PRINCE CHAMPION, Resident /BR Dec 06, 2021 11:58 AM CHEST SINGLE VIEW: JESSIE CHENEY LUCAS MEEK N [id number] -1950 M [facility] Exm Date: DEC 06, 2021@11:58 Req Phys: JELANI SÁNCHEZ Pat Loc: [facility] ED DAYS M 1RD (Req'g Loc) Img Loc: XRAY (OOS) Service: Unknown (Case [id number] COMPLETE) CHEST SINGLE VIEW (RAD Detai led) CPT:40843 Proc Modifiers : PORTABLE EXAM Reason for Study: SOB, home covid test positive Clinical History: Report Status: Verified Date Reported: DEC 06, 2021 Date Verified: DEC 06, 2021 Discharge Planner E-Sig:/ES/JESSIE CHENEY Report: Exam type: Chest x-ray [...] REQUIRED Primary Interpreting Staff: JESSIE CHENEY, RADIOLOGIST (Discharge Planner) /TLC Pathology Reports: +/- 30 days of [...] [facility] MONTOYA [facility] [CLIA# [id number]] [address] [place] [address] - - - - - - [...] automatically d ocumented from SURGERY package case #[id number] Field (#32) PRINCIPAL PRE-OP DIAGNOSIS, (#.72) OTHER [...] automatically d ocumented from SURGERY package case #[id number] Field (#34) PRINCIPAL POST-OP DIAG, (#.74) OTHER [...] Label: Lucas Meek Paperwork: Lucas Meek Cassette: [id number];..;KALYANI;.;405;[phone] Specimen is labeled: ES bx Received in formalin are several pieces of pale boyd and brown tissue, 1.2 x 0.7 cm in aggregate. Submitted entirely in 1 cassette [id number];..;KALYANI;.;405;[phone] SAW 12/15/2021 Microscopic exam: *+* MODIFIED REPORT *+* (Last modified: JAN 03, 2022@09:30:20 typed by NIURKA WADDELL) DIAGNOSIS: A. 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 Kendell long. TIARA Coombs was notified on 12/21/21. Modified on 01/03/22 to include report from [facility] stating that tumor is NEGATIVE for her2/ matheus amplification. The attending pathologist who signature mansoor ears on this report has reviewed all diagnostic slides and has edited t he gross and/or microscopic portion of this report in rendering the final pathologic diagnosis. [address] [address] CPT: 00338 /emely/ NIUKRA Yeung MD Signed Jan 03, 2022@10:28 Performing Laboratory: Surgical Pathology Report Performed By: [facility] [CLIA# [id number]] [address] [place] [address] $FTR - - - - - [...] - - LUCAS MEEK STANDARD FORM 515 ID:[id number] SEX:M :1950 AGE: 71 LOC: SDM END PCP: Isatu Todd /emely/ NIURKA Yeung MD Signed: 01/03/2022 10:28 Dec 21, 2021 11:46 AM LR SURGICAL PATHOLOGY REPORT: STEFANY MILLER [facility] LOCAL TITLE: LR SURGICAL PATHOLOGY REPORT [facility] STANDARD TITLE: PATHOLOGY REPORT DATE OF NOTE: DEC 21, 2021@11:46:59 ENTRY DATE: DEC 21, 2021@11:46:59 AUTHOR: NIURKA MILLER EXP COSIGNER: URGENCY: STATUS: COMPLETED $APHDR Reporting Lab: [facility] [CLIA# [id number]] [address] [place] [address] - - - - - - [...] automatically d ocumented from SURGERY package case #[id number] Field (#32) PRINCIPAL PRE-OP DIAGNOSIS, (#.72) OTHER [...] automatically d ocumented from SURGERY package case #[id number] Field (#34) PRINCIPAL POST-OP DIAG, (#.74) OTHER [...] Meek Lei Paperwork: Lucas Meek Lei Cassette: [id number];..;KALYANI;.;548;[phone] Specimen is labeled: ES bx Received in formalin are several pieces of pale boyd and brown tissue, 1.2 x 0.7 cm in aggregate. Submitted entirely in 1 cassette [id number];..;KALYANI;.;496;[id number] SAW 12/15/2021 Microscopic exam: DIAGNOSIS: A. 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 Kendell long. TIARA Coombs was notified on 12/21/21. The attending pathologist who signature mansoor ears on this report has reviewed all diagnostic slides and has edited t he gross and/or microscopic portion of this report in rendering the final pathologic diagnosis. [address] [address] CPT: 06801 /emely/ NIURKA Yeung MD Signed Dec 21, 2021@11:46 Performing Laboratory: Surgical Pathology Report Performed By: [facility] [CLIA# [id number]] [address] [place] [address] $FTR - - - - - [...] - - LUCAS MEEK STANDARD FORM 515 ID:[id number] SEX:M :1950 AGE: 71 LOC: SDM END PCP: Isatu Todd /charmaine Yeung MD Signed: 12/21/2021 11:46 Dec 06, 2021 03:30 PM LR MICROBIOLOGY REPORT: [facility] Reporting Lab: [facility] [CLIA# [id number]] [address] [place] [address] Accession [UID]: [id number] [[id number]] Receiv ed: Dec 06, 2021@16:14 Collection sample: BLOOD CUL T BOTTLE(NIRMAL/AERO)Collection date: Dec 06, 2021 15:30 Site/Specimen: BLOOD Provider: JELANI SÁNCHEZ Comment on specimen: LAC Test(s) ordered: BLOOD CULTURE ANAEROBI C....... completed: Dec 12, 2021 06:18 * BACTERIOLOGY FINAL REPORT => Dec 12, 2021 06:1 8 TECH CODE: 43755 Bacteriology Remark(s): NO GROWTH IN 5 DAYS =--=--=--=--=--=--=--=--=--=--=--=--=--= --=--=--=--=--=--=--=--=--=--=--=--=-- Performing Laboratory: Bacteriology Report Performed By: [facility] [CLIA# [id number]] [address] [place] [address] Dec 06, 2021 03:30 PM LR MICROBIOLOGY REPORT: [facility] Reporting Lab: [facility] [CLIA# [id number]] [address] [place] [address] Accession [UID]: [facility] [id number] [[id number]] Receiv ed: Dec 06, 2021@16:14 Collection sample: BLOOD CUL T BOTTLE(NIRMAL/AERO)Collection date: Dec 06, 2021 15:30 Site/Specimen: BLOOD Provider: JELANI SÁNCHEZ Comment on specimen: LAC Test(s) ordered: BLOOD CULTURE AEROBIC. ........ completed: Dec 12, 2021 06:17 * BACTERIOLOGY FINAL REPORT => Dec 12, 2021 06:1 7 TECH CODE: [id number] Bacteriology Remark(s): NO GROWTH IN 5 DAYS =--=--=--=--=--=--=--=--=--=--=--=--=--= --=--=--=--=--=--=--=--=--=--=--=--=-- Performing Laboratory: Bacteriology Report [facility] [CL[facility]# [id number]] [address] [place] [address]
--- OUTSIDE RECORDS SUMMARY | 2022-01-19 08:51 | XMS_ITS ---
DAILY HOSPITALIZATION DATA [facility] Encounter Summary Created on:December 13, 2021 Patient:LUCAS MEEK Sex:Male :1950 Author Organization [facility] Address [address] [place] [id number] Support Name Relationship Address Phone YUSRA MEEK Unavailable [address] [place] [address] YUSRA MEEK Unavailable [address] [place] [facility] [place] [address] CLAY MOSLEY Unavailable Unavailable SJ SANTACRUZ Unavailable [...] MEDICARE MEDICARE PART Jun 18, PART A [id number] DO KALYANI PATIENT (WNR) (M) A 2016 13A 1 U[place]AS MEDICARE MEDICARE PART Jun 18, PART B [id number] DO KALYANI PATIENT (WNR) (M) B 2016 13A 1 [place] MEDICARE MEDICARE PART Jun 18, PART A [id number] KALYANIDO PATIENT (WNR) (M) A 2017 VH81 2 [place] MEDICARE MEDICARE PART Jun 18, PART B [id number] DO KALYANI PATIENT (WNR) (M) B 2017 VH81 2 [place] UNITED MEDICARE MCR(Jun [id number] Luz MEEK PATIENT HEALTHCARE ADVANTAGE NR) 2021 37 0 [facility] (WNR) Selected Encounter This section includes the information on record at NE for the Encounter. Date/Time Encounter Type Encounter Description Reason Provider Source Dec 13, 2021 06:23 Inpatient Visit DAILY HOSPITALIZATION DATA PM IHE Encounter Template Text not used by NE Plan of Treatment: Future Appointments (+ 6 months) and Future Tests (+/- 45 days) The Plan of Treatment section includes future care activities for the patient from all NE treatmentfacilities. This section includes future appointments and future orders which are active, pending orscheduled.Future Appointments This section includes appointments that were scheduled to occur 6 months from the date of the Encounter, up to a maximum of 20 appointments. The data comes from all NE treatment facilities. Appointment Date/Time Appointment Type Appointment Facili ty Name Dec 21, 2021 08:00 AM AM[place]ONE [place] [facility] Jan 06, 2022 02:00 PM [place] [facility] Jan 10, 2022 11:30 AM [facility] - MEDICINE [facility] Jan 24, 2022 08:00 [place] [facility] Feb 21, 2022 10:00 AM [place] [facility] Mar 21, [...] the Encounter. The data comes from all [place] treatment [facility]. Test Date/Time Test Type Test Details Facility Name October 31, 2021 07:37 AM Consult Order [facility]UNITY [facility]ARE-EGD [facility] Cons [place] [facility] November 15, 2021 10:37 AM Consult Order [facility] CARE-PODIATRY Cons [facility] Dec 06, 2021 12:52 PM Pharmacy [...] [place] OUTPATIENT Cons [facility] Jan 15, 2022 10:08 PM Consult Order [facility] CARE-PALLIATIVE CARE Cons [facility] Lab Results: +/- 30 days of [...] Reference Range Comment Dec 15, 2021 [place] P4 GLU,BUN,CREAT,LYTES,CA Speci men Type: PLASMA 06:43 AM [facility] Comment: Tests performed on Push IO (405) SN:[id number] Ordering Provid er: ISATU TODD Report Released Date/Time: Dec 11, 2021 07:42 AM Reporting Lab: [facility] [address] [facility] [address] Performing Lab: [facility] [facility] [address] [facility] [address] UREA NITROGEN 9 7-25 SODIUM 137 135-145 POTASSIUM 3.8 3.5-5.0 CHLORIDE 105 100-110 CARBON DIOXIDE 26 20-30 ANION GAP 6 4-16 GLUCOSE 102 H 65-100 CREATININE 0.64 0.5-1.5 CALCIUM 8.1 L 8.5-10.5 eGFR(CKD-EPI 2020) >90.0 >60 Dec 15, 2021 06:43 AM [place] [facility] CBC PROFILE Sp ecimen Type: BLOOD No comment enter ed. Ordering Provid er: ISATU TODD Report Released Date/Time: Dec 10, 2021 07:22 AM Reporting Lab: [facility] [address] [facility] [address] Performing Lab: [facility] [place] [facility] [address] [facility] [address] WBC 5.7 4.5-11.0 RBC 4.22 L 4.23-5.66 [...] ABSOLUTE NRBC 0.00 0-0 Dec 14, 2021 [facility] CYTOGENETIC Specimen Type: ESOPHAGUS 02:59 PM [facility] FISH([facility]) Comment: ~For T est: CYTOGENETIC FISH([facility]) ~FISH HER 2 NUE, FFPE See full report in [employer] Image display viewer/tab#LAB-Reference Ordering Provid er: NIURKA MILLER Report Released Date/Time: Dec 21, 2021 12:11 PM Reporting Lab: [facility] [address] [facility] [address] Performing Lab: [facility] CYTOGENETIC FISH([facility]) comment Dec 14, 2021 [facility] P4 GLU,BUN,CREAT,LYTES,CA Speci men Type: PLASMA 06:27 AM [facility] Comment: Tests performed on Push IO (405) SN:[id number] Ordering Provid er: ISATU TODD Report Released Date/Time: Dec 11, 2021 07:42 AM Reporting Lab: [facility] [address] [facility] [address] Performing Lab: [facility] [address] [facility] [address] UREA NITROGEN 10 7-25 SODIUM 137 135-145 [...] AM Reporting Lab: [facility] [address] [facility] [address] Performing Lab: [facility] [address] [facility] [address] WBC 6.0 4.5-11.0 RBC 4.29 4.23-5.66 HGB [...] ABSOLUTE NRBC 0.00 0-0 Dec 13, 2021 [facility] P4 GLU,BUN,CREAT,LYTES,CA Speci men Type: PLASMA 06:34 AM [facility] Comment: Tests performed on Push IO (405) SN:[id number] Ordering Provid er: ISATU TODD Report Released Date/Time: Dec 11, 2021 07:42 AM Reporting Lab: [facility] [address] [facility] [address] Performing Lab: [facility] [address] [facility] [address] UREA NITROGEN 12 7-25 SODIUM 136 135-145 [...] AM Reporting Lab: [facility] [address] [facility] [address] Performing Lab: [facility] [address] [facility] [address] WBC 5.6 4.5-11.0 RBC 4.28 4.23-5.66 HGB [...] ABSOLUTE NRBC 0.00 0-0 Dec 12, 2021 [facility] P4 GLU,BUN,CREAT,LYTES,CA Speci men Type: PLASMA 06:21 AM [facility] Comment: Tests performed on Push IO (405) SN:[id number] Ordering Provid er: ISATU TODD Report Released Date/Time: Dec 11, 2021 07:42 AM Reporting Lab: [facility] [address] [facility] [address] Per[facility]: [facility] [address] [facility] [address] UREA NITROGEN 11 7-25 SODIUM 139 135-145 [...] 2021 07:22 AM Reporting [facility]: [facility] [address] [facility] [address] Performing Lab: [facility] [address] [facility] [address] WBC 5.5 4.5-11.0 RBC 4.37 4.23-5.66 HGB [...] 0.00 0-0 Dec 12, 2021 06:00 AM [facility] MAGNESIUM Sp ecimen Type: PLASMA Comment: Testin g Performed on Push IO (405) SN:[id number] Ordering Provid er: ISATU TODD Report Released Date/Time: Dec 12, 2021 08:24 AM Reporting Lab: [place] [facility] [address] [facility] [address] Performing Lab: [employer] [place] [facility] [address] [facility] [address] MAGNESIUM 1.8 1.6-2.6 Dec 12, 2021 06:00 AM [facility] PHOSPHORUS Sp ecimen Type: PLASMA Comment: Testin g Performed on Push IO (405) SN:[id number] Ordering Provid er: ISATU TODD Report Released Date/Time: Dec 12, 2021 08:24 AM Reporting Lab: [place] [facility] [address] [facility] [address] Performing Lab: [place] [employer] [address] [facility] [address] PHOSPHORUS 3.1 2.5-5.0 Dec 11, 2021 06:15 AM [employer] [place] [employer] ELECTROLYTES Sp ecimen Type: PLASMA Comment: Tests performed on Push IO (405) SN:[id number] Ordering Provid er: ISATU TODD Report Released Date/Time: Dec 10, 2021 07:22 AM Reporting Lab: [place] [facility] [address] [facility] [address] Performing Lab: [place] [facility] [address] [facility] [address] SODIUM 137 135-145 POTASSIUM 4.3 3.5-5.0 CHLORIDE 108 100-110 CARBON DIOXIDE 20 20-30 ANION GAP 9 4-16 Dec 11, 2021 06:15 AM [place] [employer] CBC PROFILE Sp ecimen Type: BLOOD Comment: Result s checked Ordering Provid er: ISATU TODD Report Released Date/Time: Dec 10, 2021 07:22 AM Reporting Lab: [place] [facility] [address] [facility] [address] Performing Lab: [place] [facility] [address] [facility] [address] WBC 5.8 4.5-11.0 RBC 4.37 4.23-5.66 HGB [...] ecimen Type: PLASMA Comment: Tests performed on Push IO (930) SN:[id number] Results checked Ordering Provid er: ISATU TODD Report Released Date/Time: Dec 11, 2021 07:44 AM Reporting Lab: [place] [facility] [address] [facility] [address] Performing Lab: [place] [facility]MEGAT [facility] [address] [facility] [address] PHOSPHORUS 3.0 2.5-5.0 Dec 10, 2021 08:05 AM [place] [facility] MAGNESIUM Sp ecimen Type: PLASMA Comment: [place] [id number] on Dec 10, 2021@08:31 Tests performed on Push IO (405) SN:[id number] Ordering Provid er: ISATU TODD Report Released Date/Time: Dec 10, 2021 07:22 AM Reporting Lab: [place] [facility] [address] [place] [facility] [place] [address] Performing Lab: [place] [facility] [address] [place] [facility] [place] [address] MAGNESIUM 1.7 1.6-2.6 Dec 10, 2021 08:05 AM [place] [facility] PHOSPHORUS Sp ecimen Type: PLASMA Comment: [place] [id number] on Dec 10, 2021@08:31 Tests performed on Push IO (405) SN:[id number] Ordering Provid er: ISATU TODD Report Released Date/Time: Dec 10, 2021 07:22 AM Reporting Lab: [place] [facility] [address] [place] [facility] [place] [address] Performing Lab: [place] [facility] [address] [place] [facility] [place] [address] PHOSPHORUS 1.8 L 2.5-5.0 Dec 10, 2021 08:05 AM [place] UREA NITROGEN Specimen Type: PLASMA [facility] Comment: [place] [id number] on Dec 10, 2021@08:31 Tests performed on Push IO (405) SN:[id number] Ordering Provid er: ISATU TODD Report Released Date/Time: Dec 10, 2021 07:22 AM Reporting Lab: [place] [facility] [address] [place] [facility] [place] [address] Performing Lab: [place] [facility] [address] [place] [facility] [place] [address] UREA NITROGEN 8 7-25 Dec 10, 2021 08:05 AM [place] [facility] GLUCOSE Sp ecimen Type: PLASMA Comment: [place] [id number] on Dec 10, 2021@08:31 Tests performed on Push IO (405) SN:[id number] Ordering Provid er: SIATU TODD Report Released Date/Time: Dec 10, 2021 07:22 AM Reporting Lab: [place] [facility] [address] [facility] [address] Performing Lab: [place] [facility] [address] [facility] [address] GLUCOSE 144 H 65-100 Dec 10, 2021 08:05 AM [place] [facility] CALCIUM Sp ecimen Type: PLASMA Comment: [place] [id number] on Dec 10, 2021@08:31 Tests performed on Push IO (405) SN:[id number] Ordering Provid er: ISATU TODD Report Released Date/Time: Dec 10, 2021 07:22 AM Reporting Lab: [place] [facility] [address] [facility] [address] Performing Lab: [place] [facility] [address] [facility] [address] CALCIUM 8.3 L 8.5-10.5 Dec 10, 2021 08:05 AM [place] [facility] ELECTROLYTES Sp ecimen Type: PLASMA Comment: [place] [id number] on Dec 10, 2021@08:31 Tests performed on Pham SocialGlimpz (405) SN:[id number] Ordering Provid er: ISATU TODD Report Released Date/Time: Dec 10, 2021 07:22 AM Reporting Lab: [place] [facility] [address] [facility] [address] Performing Lab: [place] [facility] [address] [facility] [address] SODIUM 139 135-145 POTASSIUM 3.7 3.5-5.0 CHLORIDE 107 100-110 CARBON DIOXIDE 24 20-30 ANION GAP 8 4-16 Dec 10, 2021 08:05 [place] CREATININE WITH eGFR Specime n Type: PLASMA AM [facility] PANEL Comment: [place] [id number] on Dec 10, 2021@08:31 Tests performed on Push IO (405) SN:[id number] Ordering Provid er: ISATU TODD Report Released Date/Time: Dec 10, 2021 07:22 AM Reporting Lab: [place] [facility] [address] [facility] [address] Performing Lab: [place] [facility] [address] [facility] [address] CREATININE 0.78 0.5-1.5 eGFR(CKD-EPI 2020) >90.0 >60 Dec 10, 2021 08:05 AM [facility] CBC PROFILE Sp ecimen Type: BLOOD No comment enter ed. Ordering Provid er: ISATU TODD Report Released Date/Time: Dec 10, 2021 07:22 AM Reporting Lab: [facility] [place] [facility] [address] [facility] [address] Performing Lab: [place] [facility] [address] [facility] [address] WBC 7.0 4.5-11.0 RBC 4.54 4.23-5.66 HGB [...] ecimen Type: PLASMA Comment: Tests performed on Push IO (255) SN:[id number] Ordering Provid er: ISATU TODD Report Released Date/Time: Dec 08, 2021 10:23 AM Reporting Lab: [facility] [facility] [address] [facility] [address] Performing Lab: [facility] [address] [facility] [address] MAGNESIUM 1.6 1.6-2.6 Dec 09, 2021 [facility] P4 GLU,BUN,CREAT,LYTES,CA Speci men Type: PLASMA 06:46 AM [facility] Comment: Tests performed on Push IO (405) SN:[id number] Ordering Provid er: ISATU TODD Report Released Date/Time: Dec 08, 2021 05:00 PM Reporting Lab: [facility] [address] [facility] [address] Performing Lab: [facility] [address] [facility] [address] UREA NITROGEN 6 L 7-25 SODIUM 134 [...] PM Reporting Lab: [facility] [address] [facility] [address] Performing Lab: [facility] [address] [facility] [address] WBC 7.1 4.5-11.0 RBC 4.40 4.23-5.66 HGB [...] 0-0 Dec 08, 2021 06:39 AM [place] [facility] MAGNESIUM Sp ecimen Type: PLASMA Comment: Testin g Performed on Push IO (405) SN:[id number] Ordering Provid er: ISATU TODD Report Released Date/Time: Dec 07, 2021 10:32 AM Reporting Lab: [facility] [address] [facility] [address] Performing Lab: [facility] [address] [facility] [address] MAGNESIUM 1.5 L 1.6-2.6 Dec 08, 2021 06:39 AM [place] [facility] CBC PROFILE Sp ecimen Type: BLOOD No comment enter ed. Ordering Provid er: ISATU TODD Report Released Date/Time: Dec 07, 2021 10:32 AM Reporting Lab: [facility] [address] [facility] [address] Performing Lab: [facility] [address] [facility] [address] WBC 8.4 4.5-11.0 RBC 4.75 4.23-5.66 HGB [...] ABSOLUTE NRBC 0.00 0-0 Dec 08, 2021 [facility] P4 GLU,BUN,CREAT,LYTES,CA Speci men Type: PLASMA 06:39 AM [facility] Comment: Testin g Performed on Pham SocialGlimpz (405) SN:[id number] Ordering Provid er: ISATU TODD Report Released Date/Time: Dec 07, 2021 10:32 AM Reporting Lab: [facility] [address] [facility] [address] Performing Lab: [facility] [address] [facility] [address] UREA NITROGEN 6 L 7-25 SODIUM 136 135-145 POTASSIUM 3.3 L 3.5-5.0 CHLORIDE 104 100-110 CARBON DIOXIDE 22 20-30 ANION GAP 10 4-16 GLUCOSE 133 H 65-100 CREATININE 0.76 0.5-1.5 CALCIUM 8.4 L 8.5-10.5 eGFR(CKD-EPI 2020) >90.0 >60 Dec 07, 2021 [facility] P4 GLU,BUN,CREAT,LYTES,CA Speci men Type: PLASMA 06:42 AM [facility] Comment: Tests performed on Pham SocialGlimpz (405) SN:[id number] Ordering Provid er: PORFIRIO WALTERS Report Released Date/Time: Dec 06, 2021 06:57 PM Reporting Lab: [place] [employer] [facility] [address] [facility] [address] Per[facility]: [facility] [address] [facility] [address] UREA NITROGEN 9 7-25 SODIUM 135 135-145 POTASSIUM 3.5 3.5-5.0 CHLORIDE 103 100-110 CARBON DIOXIDE 22 20-30 ANION GAP 10 4-16 GLUCOSE 92 65-100 CREATININE 0.73 0.5-1.5 CALCIUM 8.0 L 8.5-10.5 eGFR(CKD-EPI 2020) >90.0 >60 Dec 07, 2021 06:42 [place] LIVER PROFILE Specimen Typ e: PLASMA AM [facility] Comment: Tests performed on [employer] Dead Mail Checker (405) SN:[id number] Ordering Provid er: PORFIRIO WALTERS Report Released Date/Time: Dec 06, 2021 06:57 PM Reporting Lab: [facility] [address] [facility] [address] Per[facility] [address] [facility] [address] PROTEIN, TOTAL 5.7 L 6.0-8.5 ALBUMIN 2.4 L 3.2-5.0 BILIRUBIN, TOTAL 0.4 0.2-1.2 ALKALINE PHOSPHATASE 109 40-150 ALT(SGPT) 10 7-52 AST(SGOT) 15 5-34 FIB-4 SCORE 1.92 <2.67 Dec 07, 2021 06:42 AM [facility] CBC PROFILE Specimen Type: BLOOD [facility] No comment enter ed. Ordering Provid er: PORFIRIO WALTERS Report Released Date/Time: Dec 06, 2021 06:57 PM Reporting Lab: [facility] [address] [facility] [address] Performing Lab: [facility] [address] [facility] [address] WBC 5.7 4.5-11.0 RBC 4.15 L 4.23-5.66 [...] [facility]AM[facility] %) AUTOMATED Comment: Tests performed on Push IO (405) SN:[id number] Ordering Provid er: ISATU TODD Report Released Date/Time: Dec 07, 2021 10:28 AM Reporting Lab: [place] [facility] [address] [facility] [address] Performing Lab: [place] [facility] [address] [facility] [address] RETICULOCYTES (%) AUTOMATED 1.23 0. 6-2.0 RETICULOCYTES (ABS) AUTOMATED 0.052 0.030-0.090 Dec 06, 2021 09:45 [place] MRSA SURVL NARES Specimen Ty pe: NARES PM [facility] DNA No comment enter ed. Ordering Provid er: ALVARO VARGHESE Report Released Date/Time: Dec 07, 2021 02:20 AM Reporting Lab: [place] [facility] [address] [facility] [address] Performing Lab: [place] [facility] [address] [facility] [address] MRSA SURVL NARES DNA NEGATIVE NEGATIVE Dec 06, 2021 06:00 [place] URINALYSIS W/REFLEX TO Speci men Type: URINE PM [facility] CULTURE No comment enter ed. Ordering Provid er: JELANI SÁNCHEZ Report Released Date/Time: Dec 06, 2021 11:57 AM Reporting Lab: [place] [facility] [address] [facility] [address] Performing Lab: [place] [facility] [address] [facility] [address] URINE COLOR Arlin YELLOW SPECIFIC GRAVITY 1.029 [...] 21, [place]IANT Comment: https://www.cdc.gov/coronavirus/2019-ncov/cases-updates/variant- surveillance/variant-info.html The [employer] SARS CoV 2 iNEWiT Research Assay-GX is a next-generation sequencing (NGS) assa 2021 [facility] SEQUENCING y that determine s the complete genome sequence of the SARS-CoV-2 virus. The assay contains variant-tolerant primers to broaden and improve the coverage for variant detection and increase the sensitivity 12:00 [facility] PNL(WH) of the panel to enable detection from lower viral titer samples. The assay is run on the [employer] Sequencer, which performs automated library preparation, sequencing, analysis, and reporting. PM The sequence an alysis includes determination of viral phylogenetic lineage by comparison to the reference strain Wuhan-Hu-1, GenBank: [id number]. Sequence determination may not be possible owing [...] Dec 06, 2021 01:13 PM Reporting Lab: [facility] [address] [facility] [address] Performing Lab: [facility] [address] [facility] [address] SARS-CoV-2 CLADE() 22C (OMICRON) SARS-CoV-2 LINEAGE() BA.2.12.1 Dec 06, 2021 12:00 [facility] COVID-19 AG SCREEN Specimen Type: NASAL CAVITY PM [facility] PANEL BINAX(405) Comment: Testi ng Performed By: Mike Briscoe Ordering Provid er: JELANI SÁNCHEZ Report Released Date/Time: Dec 08, 2021 08:23 AM Reporting Lab: [facility] [address] [facility] [address] Performing Lab: [facility] [address] [facility] [address] COVID-19 AG SCRN(wrj BINAX) POSITIVE HH NE G Dec 06, 2021 12:00 PM [facility] TROPONIN II Sp ecimen Type: PLASMA Comment: Tests performed on Pham Dead Mail Checker (405) SN:[id number] Ordering Provid er: JELANI SÁNCHEZ Report Released Date/Time: Dec 06, 2021 11:57 AM Reporting Lab: [facility] [address] [facility] [address] Performing Lab: [facility] [address] [facility] [address] TROPONIN II 0.03 0.00-0.29 Dec 06, 2021 [place] P4 GLU,BUN,CREAT,LYTES,CA Speci men Type: PLASMA 12:00 PM [facility] Comment: Testin g Performed on Pham Dead Mail Checker (405) SN:[id number] Ordering Provid er: JELANI SÁNCHEZ Report Released Date/Time: Dec 06, 2021 11:57 AM Reporting Lab: [place] [facility] [address] [facility] [address] Performing Lab: [place] [facility] [address] [facility] [address] UREA NITROGEN 13 7-25 SODIUM 138 135-145 POTASSIUM 3.8 3.5-5.0 CHLORIDE 103 100-110 CARBON DIOXIDE 23 20-30 ANION GAP 12 4-16 GLUCOSE 105 H 65-100 CREATININE 0.90 0.5-1.5 CALCIUM 8.7 8.5-10.5 eGFR(CKD-EPI 2020) >90.0 >60 Dec 06, 2021 12:00 PM [facility] LIVER PROFILE Sp ecimen Type: PLASMA Comment: Testin g Performed on Pham Dead Mail Checker (405) SN:[id number] Ordering Provid er: JELANI SÁNCHEZ Report Released Date/Time: Dec 06, 2021 11:57 AM Reporting Lab: [facility] [address] [facility] [address] Performing Lab: [facility] [address] [facility] [address] PROTEIN, TOTAL 6.6 6.0-8.5 ALBUMIN 2.8 L 3.2-5.0 BILIRUBIN, TOTAL 0.6 0.2-1.2 ALKALINE PHOSPHATASE 134 40-150 ALT(SGPT) 13 7-52 AST(SGOT) 18 5-34 FIB-4 SCORE 1.94 <2.67 Dec 06, 2021 12:00 PM [facility] BNP(P) Sp ecimen Type: PLASMA Comment: Tests performed on Pham Dead Mail Checker (405) SN:[id number] Ordering Provid er: JELANI SÁNCHEZ Report Released Date/Time: Dec 06, 2021 11:57 AM Reporting Lab: [facility] [address] [facility] [address] Performing Lab: [facility] [address] [facility] [address] BNP(P) 224.8 H 10-100 Dec 06, 2021 [facility] COVID-[facility]+FLU/RSV DIAGNOSTIC Spe cimen Type: NASOPHARYNX 12:00 PM [facility] PANEL(405) Comment: Tests performed on [employer] Genexpert (405) Critical results called to and read back by: ALESHIA WILKINSON RN 12/06/21 @ 1312 Ordering Provid er: JELANI SÁNCHEZ Report Released Date/Time: Dec 06, 2021 11:57 AM Reporting Lab: [facility] [address] [facility] [address] Performing Lab: [place] [facility] [address] [facility] [address] FLU A(PCR) NEGATIVE NEGATIVE FLU B(PCR) NEGATIVE NEGATIVE RSV(PCR) NEGATIVE NEGATIVE COVID-19([id number]) DETECTED HH NO T DETECTED Dec 06, 2021 12:00 PM [facility] Sp ecimen Type: BLOOD No comment enter ed. Ordering Provid er: JELANI SÁNCHEZ Report Released Date/Time: Dec 06, 2021 11:57 AM Reporting Lab: [facility] [address] [facility] [address] Performing Lab: [facility] [address] [facility] [address] WBC 7.2 4.5-11.0 RBC 4.86 4.23-5.66 HGB [...] WHITE 2021 09:20 /min mm[Hg] [facility] PM [facility] Dec 13, 97.9 F 82 108/62 20 /min 96 % 2021 03:27 /min mm[Hg] [facility] Dec 13, 0 WHITE 2021 02:44 [facility] PM [facility] Dec 13, 0 WHITE 2021 08:15 [facility] AM [facility] Dec 13, 0 WHITE 2021 05:18 [facility] AM [facility] Social History: Smoking Status (Most current) and Tobacco Use (All prior to encounter date) This section includes the most current, and the historical, smoking and tobacco-related health factors from the [place] facility where the Encounter took place.Current Smoking Status This section includes the most current smoking, or tobacco-related health factor, from the [place] facility where the Encounter took place. Date/Time Current Smoking Status Comment Facility Dec 06, 2021 11:40 AM QUIT TOBACCO USE > 7 YEARS AGO [facility] Tobacco Use History This section includes a history of the smoking, or tobacco- related health factors, that were collected on or before the date of the Encounter. The data comes from the [place] facility where the Encounter took place. Date/Time [...] TOBACCO USE IN PAST YEAR [facility] May 01, 2016 11:19 AM QUIT TOBACCO USE IN PAST YEAR [facility] Mar 16, 2016 12:50 PM V1-PT DECLINES REF TO TOBACCO [facility] CESS PRGM Mar 16, 2016 12:50 PM V1-PT THINKING ABOUT QUIT [facility] TOBACCO USE Aug 12, 2015 08:48 AM CURRENT SMOKER [facility] Radiology Reports: +/- 30 days of [...] the Encounter. [place]. Date/Time Radiology Report Provider Source Dec 13, 2021 12:57 PM MRI ABDOMEN W/WO CONTRAST: MARYELLEN LONG LUCAS LARES N [id number] -1950 [facility] Exm Date: DEC 13, 2021@12:57 Req Phys: ISATU TODD Loc: OP Unknown/0 12-15-2021@13:20 Img Loc: MRI IMAGING (OOS) Service: ZZGENERAL MEDICINE (Case [id number] COMPLETE) MRI ABDOMEN W/WO CONTRAST (M RI Detailed) CPT:92944 Reason for Study: further characterization of a [...] new lyphadenopathy REQUESTING MD: Isatu Todd PAGER: [phone] PHONE: [phone] Weight: 232.2 lb [105.32 kg] (12/12/2021 05:00) [...] patient will need to arrange for a putaway driver to take him/her home after the [...] 15, 2021 Date Verified: DEC 15, 2021 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 E-Sig:/ES/MARYELLEN LONG Report: MRI ABDOMEN W/WO CONTRAST [...] MALIGNANCY Primary Interpreting Staff: Staff AMELIA THOMAS (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) / Dec 10, 2021 09:[address] ABDOMEN & PELVIS: [facility] LUCAS MEEK N [id number] -1950 M [facility] Ex Date: DEC 10, 2021@09:30 Req Phys: ISATU TODD Loc: 1S MED/12-10@10:57 Img Loc: CT SCAN (OOS) Service: [facility] MEDICINE (Case [id number] COMPLETE) CT ABD & PELVIS WITHOUT CONT RAST (CT Detailed) CPT:65017 Reason for Study: 71 yo male with [...] INDEX - NO HEIGHTS FOUND Pager number: [phone] STAT orders MUST be call ed to RADIOLOGY [phone] to speak to the appropriate museum technician. Report Status: Verified Date Reported: DEC 10, 2021 Date Verified: DEC 10, 2021 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 E-Sig: Report: EXAM: CT abdomen and pelvis [...] ph nodes. READING PHYSICIAN: Ramone Munoz D.O. -[phone] 12/10/2021 10:55 EDT [facility] National Teleradiology Program [phone] (For Medical Practitioner Use Only ) [address] [facility], [facility] [address], [address] [place] [address] Attention Patients / Veterans: If you have ques tions or concerns about these test results, please contact your o rdering provider or primary care team. Primary Diagnostic Code: SIGNIFICANT ABNORMALIT Y, ATTN NEEDED Primary Interpreting Staff: RADIOLOGY,OUTSIDE SERVICE, Staff Physician / Dec 09, 2021 07:34 AM BASW (MODIFIED): JESSIE CHENEY TARA ER JCT LUCAS MEEK N [id number] -1950 [facility] Exm Date: DEC 09, 2021@07:34 Req Phys: ISATU TODD Josseline Loc: 1S MED/12-09@11:26 Img Loc: XRAY (OOS) Service: [facility] MEDICINE (Case [id number] COMPLETE) BASW (MODIFIED) (RAD Detaile d) CPT:93576 Contrast Media : Barium Reason for Study: dysphagia ?esophageal spasm Clinical History: Report Status: Verified Date Reported: DEC 09, 2021 Date Verified: DEC 09, 2021 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 E-Sig:/ES/JESSIE CHENEY Report: BASW (MODIFIED) , 12/09/2021 [...] REQUIRED Primary Interpreting Staff: JESSIE CHENEY, RADIOLOGIST (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) /TLC Dec 06, 2021 12:[address] CHEST (INCLUDES ADRENALS): [facility] N [id number] -1950 [facility] Exm Date: DEC 06, 2021@12:59 Req Phys: GONZALO,JELANI J Pat Loc: [facility] ED DAYS M 1RD (Req'g Loc) Img Loc: CT SCAN (OOS) Service: Unknown (Case [id number] COMPLETE) CT THORAX W/O CONT (CT Detai led) CPT:99737 Reason for Study: Opacification right chest Clinical History: No contrast allergy BUN: 13 (12/06/21 12:00) CREATI: 0.90 (12/06/21 12:00) eGFR 05/16/21 09:43 52 L Weight: 232.6 lb [105.51 kg] (12/06/2021 11:40) BODY MASS INDEX - NO HEIGHTS FOUND Pager number: [phone] STAT orders MUST be called t o RADIOLOGY [phone] to speak to the appropriate museum technician. Indications - Other: Opacification right chest, covid positive, lung cancer histo Report Status: Verified Date Reported: DEC 06, 2021 Date Verified: DEC 06, 2021 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 E-Sig:/ES/JESSIE CHENEY Report: CT THORAX W/O CONT [...] REQUIRED Primary Interpreting Staff: JESSIE CHENEY, RADIOLOGIST (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) Primary Interpreting Resident: PRINCE CHAMPION, Resident /BR Dec 06, 2021 11:58 AM CHEST SINGLE VIEW: JESSIE CHENEY DOUGLAS N [id number] -1950 M [facility] Exm Date: DEC 06, 2021@11:58 Req Phys: JELANI SÁNCHEZ Pat Loc: [facility] ED DAYS M 1RD (Req'g Loc) Img Loc: XRAY (OOS) Service: Unknown (Case [id number] COMPLETE) CHEST SINGLE VIEW (RAD Detai led) CPT:17667 Proc Modifiers : PORTABLE EXAM Reason for Study: SOB, home covid test positive Clinical History: Report Status: Verified Date Reported: DEC 06, 2021 Date Verified: DEC 06, 2021 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 E-Sig:/ES/JESSIE CHENEY Report: Exam type: Chest x-ray [...] REQUIRED Primary Interpreting Staff: JESSIE CHENEY, RADIOLOGIST (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) /TLC Pathology Reports: +/- 30 days of [...] the Encounter. [place] all [place]. Date/Time Pathology Report Provider Source Jan 03, 2022 10:28 AM LR SURGICAL PATHOLOGY REPORT: STEFANY MILLER LOCAL TITLE: LR SURGICAL PATHOLOGY REPORT [facility] STANDARD TITLE: PATHOLOGY REPORT DATE OF NOTE: JAN 03, 2022@10:28:01 ENTRY DATE: JAN 03, 2022@10:28:01 AUTHOR: NIURKA MILLER EXP COSIGNER: URGENCY: STATUS: COMPLETED $APHDR Reporting Lab: [facility] [CLIA# [id number]] [address] [place] [address] - - - - - - [...] automatically d ocumented from SURGERY package case #[id number] Field (#32) PRINCIPAL PRE-OP DIAGNOSIS, (#.72) OTHER [...] automatically d ocumented from SURGERY package case #[id number] Field (#34) PRINCIPAL POST-OP DIAG, (#.74) OTHER [...] Label: Lucas Meek Paperwork: Lucas Meek Cassette: [id number];..;KALYANI;.;405;[phone] Specimen is labeled: ES bx Received in formalin are several pieces of pale boyd and brown tissue, 1.2 x 0.7 cm in aggregate. Submitted entirely in 1 cassette [id number];..;KALYANI;.;405;[id number] SAW 12/15/2021 Microscopic exam: *+* MODIFIED REPORT *+* (Last modified: JAN 03, 2022@09:30:20 typed by NIURKA WADDELL) DIAGNOSIS: A. 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 Kendell long. TIARA Coombs was notified on 12/21/21. Modified on 01/03/22 to include report from [facility] stating that tumor is NEGATIVE for her2/ matheus amplification. The attending pathologist who signature mansoor ears on this report has reviewed all diagnostic slides and has edited t he gross and/or microscopic portion of this report in rendering the final pathologic diagnosis. [address] [address] CPT: 73839 /emely/ NIURKA Yeung MD Signed Jan 03, 2022@10:28 Performing Laboratory: Surgical Pathology Report Performed By: [facility] [CLIA# [id number]] [address] [place] [address] $FTR - - - - - [...] - - LUCAS MEEK STANDARD FORM 515 ID:[id number] SEX:M :1950 AGE: 71 LOC: SD[facility] END PCP: Isatu Todd /emely/ NIURKA MILLER Staff Signed: 01/03/2022 10:28 Dec 21, 2021 11:46 AM LR SURGICAL PATHOLOGY REPORT: STEFANY MILLER [facility] LOCAL TITLE: LR SURGICAL PATHOLOGY REPORT [facility] STANDARD TITLE: PATHOLOGY REPORT DATE OF NOTE: DEC 21, 2021@11:46:59 ENTRY DATE: DEC 21, 2021@11:46:59 AUTHOR: NIURKA MILLER EXP COSIGNER: URGENCY: STATUS: COMPLETED $APHDR Reporting Lab: [facility] [CLIA# [id number]] [address] [place] [address] - - - - - - [...] automatically d ocumented from SURGERY package case #[id number] Field (#32) PRINCIPAL PRE-OP DIAGNOSIS, (#.72) OTHER [...] automatically d ocumented from SURGERY package case #[id number] Field (#34) PRINCIPAL POST-OP DIAG, (#.74) OTHER [...] Label: Lucas Meek Paperwork: Lucas Meek Cassette: [id number];..;KALYANI;.;405;[id number] Specimen is labeled: ES bx Received in formalin are several pieces of pale boyd and brown tissue, 1.2 x 0.7 cm in aggregate. Submitted entirely in 1 cassette [id number];..;KALYANI;.;405;[id number] SAW 12/15/2021 Microscopic exam: DIAGNOSIS: A. 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 Kendell long. TIARA Coombs was notified on 12/21/21. The attending pathologist who signature mansoor ears on this report has reviewed all diagnostic slides and has edited t he gross and/or microscopic portion of this report in rendering the final pathologic diagnosis. [address] [address] CPT: 28783 /emely/ NIURKA Yeung MD Signed Dec 21, 2021@11:46 Performing Laboratory: Surgical Pathology Report Performed By: [facility] [CLIA# [id number]] [address] [place] [address] $FTR - - - - - [...] - - LUCAS MEEK STANDARD FORM 515 ID:[id number] SEX:M :1950 AGE: 71 LOC: [facility] END PCP: Isatu Todd /charmaine Yeung MD Signed: 12/21/2021 11:46 Dec 06, 2021 03:30 PM LR MICROBIOLOGY REPORT: [facility] Reporting Lab: [facility] [CLIA# [id number]] [address] [place] [address] Accession [UID]: [id number] [[id number]] Receiv ed: Dec 06, 2021@16:14 Collection sample: BLOOD CUL T BOTTLE(NIRMAL/AERO)Collection date: Dec 06, 2021 15:30 Site/Specimen: BLOOD Provider: JELANI SÁNCHEZ Comment on specimen: LAC Test(s) ordered: BLOOD CULTURE ANAEROBI C....... completed: Dec 12, 2021 06:18 * BACTERIOLOGY FINAL REPORT => Dec 12, 2021 06:1 8 TECH CODE: [id number] Bacteriology Remark(s): NO GROWTH IN 5 DAYS =--=--=--=--=--=--=--=--=--=--=--=--=--= --=--=--=--=--=--=--=--=--=--=--=--=-- Performing Laboratory: Bacteriology Report Performed By: [facility] [CLIA# [id number]] [address] [place] [address] Dec 06, 2021 03:30 PM LR MICROBIOLOGY REPORT: [facility] Reporting Lab: [facility] [CLIA# [id number]] [address] [place] [address] Accession [UID]: [id number] [[id number]] Receiv ed: Dec 06, 2021@16:14 Collection sample: BLOOD CUL T BOTTLE(NIRMAL/AERO)Collection date: Dec 06, 2021 15:30 Site/Specimen: BLOOD Provider: JELANI SÁNCHEZ Comment on specimen: LAC Test(s) ordered: BLOOD CULTURE AEROBIC. ........ completed: Dec 12, 2021 06:17 * BACTERIOLOGY FINAL REPORT => Dec 12, 2021 06:1 7 TECH CODE: [id number] Bacteriology Remark(s): NO GROWTH IN 5 DAYS =--=--=--=--=--=--=--=--=--=--=--=--=--= --=--=--=--=--=--=--=--=--=--=--=--=-- Performing Laboratory: Bacteriology Report Performed By: [facility] [CLIA# [id number]] [address] [place] [address]
--- OUTSIDE RECORDS SUMMARY | 2022-01-19 08:51 | XMS_ITS ---
DAILY HOSPITALIZATION DATA [facility] Encounter Summary Created on:December 13, 2021 Patient:LUCAS MEEK Sex:Male :1950 Author Organization [facility] Address [address] [place] [address] Support Name Relationship Address Phone YUSRA MEEK Unavailable [address] [place] [address] YUSRA MEEK Unavailable [address] [place] [facility] [place] [address] CLAY MOSLEY Unavailable Unavailable SJ SANTACRUZ Unavailable [...] MEDICARE MEDICARE PART Jun 18, PART B [id number] DO KALYANI PATIENT (WNR) (M) B 2016 13A 1 UGLAS MEDICARE MEDICARE PART Jun 18, PART A [id number] DO KALYANI PATIENT (WNR) (M) A 2016 13A 1 U[place]AS MEDICARE MEDICARE PART Jun 18, PART A [id number] KALYANIDO PATIENT (WNR) (M) A 2017 VH81 2 UGLAS MEDICARE MEDICARE PART Jun 18, PART B [id number] DO KALYANI PATIENT (WNR) (M) B 2017 VH81 2 LAS UNITED MEDICARE MCR(Jun 18 [id number] Luz MEEK PATIENT HEALTHCARE ADVANTAGE NR) 2021 37 0 [facility] (WNR) Selected Encounter This section includes the information on record at MD for the Encounter. Date/Time Encounter Type Encounter Description Reason Provider Source Dec 13, 2021 09:47 Inpatient Visit DAILY HOSPITALIZATION DATA PM IHE Encounter Template Text not used by MD Plan of Treatment: Future Appointments (+ 6 months) and Future Tests (+/- 45 days) The Plan of Treatment section includes future care activities for the patient from all MD treatmentfacilities. This section includes future appointments and future orders which are active, pending orscheduled.Future Appointments This section includes appointments that were scheduled to occur 6 months from the date of the Encounter, up to a maximum of 20 appointments. The data comes from all MD treatment facilities. Appointment Date/Time Appointment Type Appointment Facili ty Name Dec 21, 2021 08:00 AM AMBULATORY - NONE [place] [facility] Jan 06, 2022 02:00 PM [place] [facility] Jan 10, 2022 11:30 AM [facility]ATORY - MEDICINE [facility] Jan 24, 2022 08:00 [place] [facility] Feb 21, 2022 10:00 AM [place] [facility] Mar 21, [...] the Encounter. The data comes from all MD treatment [facility]. Test Date/Time Test Type Test Details Facility Name October 31, 2021 07:37 AM Consult Order COMMUNITY CARE-EGD [facility] Cons Industrial Hygiene Engineer's Choice November 15, 2021 10:37 AM Consult Order [facility] CARE-PODIATRY Cons Industrial Hygiene Engineer's Choice Dec 06, 2021 12:52 PM [...] [place] OUTPATIENT Cons [facility] Industrial Hygiene Engineer's Choice Jan 15, 2022 10:08 PM Consult Order [facility] CARE-PALLIATIVE CARE Cons Industrial Hygiene Engineer's Choice Lab Results: +/- 30 days of the encounter This section includes the Chemistry and Hematology Lab Results on record with MD for the patient. Radiology Reports and Pathology Reports are provided separately, in subsequent sections.Lab Results This section contains the Chemistry/Hematology Results that were resulted 30 days before or 30 daysafter the date of the Encounter. Date/Time Source Result Type Result - Unit Interpretation Reference Range Comment Dec 15, 2021 06:43 AM [facility] CBC PROFILE Sp ecimen Type: BLOOD No comment enter ed. Ordering Provid er: ISATU TODD Report Released Date/Time: Dec 10, 2021 07:22 AM Reporting Lab: [facility] [address] [facility] [address] Performing Lab: [facility] [address] [facility] [address] WBC 5.7 4.5-11.0 RBC 4.22 L 4.23-5.66 [...] ABSOLUTE NRBC 0.00 0-0 Dec 15, 2021 [facility] P4 GLU,BUN,CREAT,LYTES,CA Speci men Type: PLASMA 06:43 AM [facility] Comment: Tests performed on Pham Cash Posting Clerk (405) SN:[id number] Ordering Provid er: ISATU TODD Report Released Date/Time: Dec 11, 2021 07:42 AM Reporting Lab: [facility] [address] [facility] [address] Performing Lab: [facility] [address] [facility] [address] UREA NITROGEN 9 7-25 SODIUM 137 135-145 POTASSIUM 3.8 3.5-5.0 CHLORIDE 105 100-110 CARBON DIOXIDE 26 20-30 ANION GAP 6 4-16 GLUCOSE 102 H 65-100 CREATININE 0.64 0.5-1.5 CALCIUM 8.1 L 8.5-10.5 eGFR(CKD-EPI 2020) >90.0 >60 Dec 14, 2021 [facility] CYTOGENETIC Specimen Type: ESOPHAGUS 02:59 PM [facility] FISH([facility] Comment: ~For T est: CYTOGENETIC FISH([facility]) ~FISH HER 2 NUE, FFPE See full report in [employer] Image display viewer/tab#LAB-Reference Ordering Provid er: NIURKA MILLER Report Released Date/Time: Dec 21, 2021 12:11 PM Reporting Lab: [facility] [address] [facility] [address] Performing Lab: [facility] CYTOGENETIC FISH([facility]) comment Dec 14, 2021 [place] P4 GLU,BUN,CREAT,LYTES,CA Speci men Type: PLASMA 06:27 AM [facility] Comment: Tests performed on Pham Cash Posting Clerk (405) SN:[id number] Ordering Provid er: ISATU TODD Report Released Date/Time: Dec 11, 2021 07:42 AM Reporting Lab: [facility] [address] [facility] [address] Performing Lab: [facility] [address] [facility] [address] UREA NITROGEN 10 7-25 SODIUM 137 135-145 POTASSIUM 4.0 3.5-5.0 CHLORIDE 104 100-110 CARBON DIOXIDE 25 20-30 ANION GAP 8 4-16 GLUCOSE 99 65-100 CREATININE 0.67 0.5-1.5 CALCIUM 8.2 L 8.5-10.5 eGFR(CKD-EPI 2020) >90.0 >60 Dec 14, 2021 06:27 AM [facility] Sp ecimen Type: BLOOD No comment enter ed. Ordering Provid er: ISATU TODD Report Released Date/Time: Dec 10, 2021 07:22 AM Reporting Lab: [facility] [address] [facility] [address] Performing Lab: [facility] [address] [facility] [address] WBC 6.0 4.5-11.0 RBC 4.29 4.23-5.66 HGB [...] 0-0 Dec 13, 2021 06:34 AM [facility] CBC PROFILE Sp ecimen Type: BLOOD No comment enter ed. Ordering Provid er: ISATU TODD Report Released Date/Time: Dec 10, 2021 07:22 AM Reporting Lab: [facility] [address] [facility] [address] Performing Lab: [facility] [address] [facility] [address] WBC 5.6 4.5-11.0 RBC 4.28 4.23-5.66 HGB [...] [facility] Comment: Tests performed on Evocalize (405) SN:[id number] Ordering Provid er: ISATU TODD Report Released Date/Time: Dec 11, 2021 07:42 AM Reporting Lab: [facility] [address] [facility] [address] Performing Lab: [facility] [address] [facility] [address] UREA NITROGEN 12 7-25 SODIUM 136 135-145 POTASSIUM 3.9 3.5-5.0 CHLORIDE 105 100-110 CARBON DIOXIDE 24 20-30 ANION GAP 7 4-16 GLUCOSE 102 H 65-100 CREATININE 0.66 0.5-1.5 CALCIUM 8.3 L 8.5-10.5 eGFR(CKD-EPI 2020) >90.0 >60 Dec 12, 2021 06:21 AM [facility] CBC PROFILE Sp ecimen Type: BLOOD No comment enter ed. Ordering Provid er: ISATU TODD Report Released Date/Time: Dec 10, 2021 07:22 AM Reporting Lab: [facility] [address] [facility] [address] Performing Lab: [facility] [address] [facility] [address] WBC 5.5 4.5-11.0 RBC 4.37 4.23-5.66 HGB [...] NRBC 0.00 0-0 Dec 12, 2021 [place] P4 GLU,BUN,CREAT,LYTES,CA Speci men Type: PLASMA 06:21 AM [facility] Comment: Tests performed on Evocalize (449) SN:[id number] Ordering Provid er: ISATU TODD Report Released Date/Time: Dec 11, 2021 07:42 AM Reporting Lab: [facility] [address] [facility] [address] Performing Lab: [facility] [address] [facility] [address] UREA NITROGEN 11 7-25 SODIUM 139 135-145 POTASSIUM 4.1 3.5-5.0 CHLORIDE 107 100-110 CARBON DIOXIDE 24 20-30 ANION GAP 8 4-16 GLUCOSE 110 H 65-100 CREATININE 0.70 0.5-1.5 CALCIUM 8.3 L 8.5-10.5 eGFR(CKD-EPI 2020) >90.0 >60 Dec 12, 2021 06:00 AM [place] [employer] MAGNESIUM Sp ecimen Type: PLASMA Comment: Testin g Performed on Evocalize (405) SN:[id number] Ordering Provid er: ISATU TODD Report Released Date/Time: Dec 12, 2021 08:24 AM Reporting Lab: [place] [facility] [address] [facility] [address] Performing Lab: [place] [facility]T [facility] [address] [facility] [address] MAGNESIUM 1.8 1.6-2.6 Dec 12, 2021 06:00 AM [place] [facility] [employer]T [facility] PHOSPHORUS Sp ecimen Type: PLASMA Comment: Testin g Performed on Evocalize (405) SN:[id number] Ordering Provid er: ISATU TODD Report Released Date/Time: Dec 12, 2021 08:24 AM Reporting Lab: [place] [facility] [employer] [address] [facility] [address] Performing Lab: [place] [facility] [address] [facility] [address] PHOSPHORUS 3.1 2.5-5.0 Dec 11, 2021 06:15 AM [employer] [place] [facility] [employer]T Omn[facility]liantMROC ELECTROLYTES Sp ecimen Type: PLASMA Comment: Tests performed on Evocalize (405) SN:[id number] Ordering Provid er: ISATU TODD Report Released Date/Time: Dec 10, 2021 07:22 AM Reporting Lab: [place] [facility] [employer] [address] [facility] [address] Performing Lab: [place] [facility] [employer] [address] [facility] [address] SODIUM 137 135-145 POTASSIUM 4.3 3.5-5.0 CHLORIDE 108 100-110 CARBON DIOXIDE 20 20-30 ANION GAP 9 4-16 Dec 11, 2021 06:15 AM [place] [facility] [employer] CBC PROFILE Sp ecimen Type: BLOOD Comment: Result s checked Ordering Provid er: ISATU TODD Report Released Date/Time: Dec 10, 2021 07:22 AM Reporting Lab: [place] [facility] [address] [facility] [address] Performing Lab: [facility] [facility] [address] [facility] [address] WBC 5.8 4.5-11.0 RBC 4.37 4.23-5.66 HGB [...] ecimen Type: PLASMA Comment: Tests performed on Evocalize (447) SN:[id number] Results checked Ordering Provid er: ISATU TODD Report Released Date/Time: Dec 11, 2021 07:44 AM Reporting Lab: [facility] [place] [facility] [address] [facility] [address] Performing Lab: [place] OMEGAT MDMROC [address] [facility] [address] PHOSPHORUS 3.0 2.5-5.0 Dec 10, 2021 08:05 AM [place] [facility] MAGNESIUM Sp ecimen Type: PLASMA Comment: [place] [id number] on Dec 10, 2021@08:31 Tests performed on Evocalize (405) SN:[id number] Ordering Provid er: ISATU TODD Report Released Date/Time: Dec 10, 2021 07:22 AM Reporting Lab: [place] [facility] [address] [place] [facility] [place] [address] Performing Lab: [place] [facility] [address] [place] [facility] [place] [address] MAGNESIUM 1.7 1.6-2.6 Dec 10, 2021 08:05 AM [place] [facility] PHOSPHORUS Sp ecimen Type: PLASMA Comment: [place] [id number] on Dec 10, 2021@08:31 Tests performed on Evocalize (405) SN:[id number] Ordering Provid er: ISATU TODD Report Released Date/Time: Dec 10, 2021 07:22 AM Reporting Lab: [place] [facility] [address] [place] [facility] [place] [address] Performing Lab: [place] [facility] [address] [place] [facility] [place] [address] PHOSPHORUS 1.8 L 2.5-5.0 Dec 10, 2021 08:05 AM [place] UREA NITROGEN Specimen Type: PLASMA [facility] Comment: [place] [id number] on Dec 10, 2021@08:31 Tests performed on Evocalize (405) SN:[id number] Ordering Provid er: ISATU TODD Report Released Date/Time: Dec 10, 2021 07:22 AM Reporting Lab: [place] [facility] [address] [place] [facility] [place] [address] Performing Lab: [place] [facility] [address] [place] [facility] [place] [address] UREA NITROGEN 8 7-25 Dec 10, 2021 08:05 AM [place] [facility] GLUCOSE Sp ecimen Type: PLASMA Comment: [place] [id number] on Dec 10, 2021@08:31 Tests performed on Evocalize (405) SN:[id number] Ordering Provid er: ISATU TODD Report Released Date/Time: Dec 10, 2021 07:22 AM Reporting Lab: [place] [facility] [address] [facility] [address] Performing Lab: [place] [facility] [address] [facility] [address] GLUCOSE 144 H 65-100 Dec 10, 2021 08:05 AM [place] [facility] ELECTROLYTES Sp ecimen Type: PLASMA Comment: [place] [id number] on Dec 10, 2021@08:31 Tests performed on Pham uSpeak (405) SN:[id number] Ordering Provid er: ISATU TODD Report Released Date/Time: Dec 10, 2021 07:22 AM Reporting Lab: [place] [facility] [address] [facility] [address] Performing Lab: [place] [facility] [address] [facility] [address] SODIUM 139 135-145 POTASSIUM 3.7 3.5-5.0 CHLORIDE 107 100-110 CARBON DIOXIDE 24 20-30 ANION GAP 8 4-16 Dec 10, 2021 08:05 AM [place] [facility] CALCIUM Sp ecimen Type: PLASMA Comment: [place] [id number] on Dec 10, 2021@08:31 Tests performed on Pham uSpeak (405) SN:[id number] Ordering Provid er: ISATU TODD Report Released Date/Time: Dec 10, 2021 07:22 AM Reporting Lab: [place] [facility] [address] [facility] [address] Performing Lab: [place] [facility] [address] [facility] [address] CALCIUM 8.3 L 8.5-10.5 Dec 10, 2021 08:05 [place] CREATININE WITH eGFR Specime n Type: PLASMA AM [facility] PANEL Comment: [place] [id number] on Dec 10, 2021@08:31 Tests performed on Evocalize (405) SN:[id number] Ordering Provid er: ISATU TODD Report Released Date/Time: Dec 10, 2021 07:22 AM Reporting Lab: [place] [facility] [address] [facility] [address] Performing Lab: [place] [facility] [address] [facility] [address] CREATININE 0.78 0.5-1.5 eGFR(CKD-EPI 2020) >90.0 >60 Dec 10, 2021 08:05 AM [facility] CBC PROFILE Sp ecimen Type: BLOOD No comment enter ed. Ordering Provid er: ISATU TODD Report Released Date/Time: Dec 10, 2021 07:22 AM Reporting Lab: [facility] [facility] [address] [facility] [address] Performing Lab: [place] [facility] [address] [facility] [address] WBC 7.0 4.5-11.0 RBC 4.54 4.23-5.66 HGB [...] ecimen Type: PLASMA Comment: Tests performed on Evocalize (446) SN:[id number] Ordering Provid er: ISATU TODD Report Released Date/Time: Dec 08, 2021 10:23 AM Reporting Lab: [facility] [address] [facility] [address] Performing Lab: [facility] [address] [facility] [address] MAGNESIUM 1.6 1.6-2.6 Dec 09, 2021 [facility] P4 GLU,BUN,CREAT,LYTES,CA Speci men Type: PLASMA 06:46 AM [facility] Comment: Tests performed on Evocalize (405) SN:[id number] Ordering Provid er: ISATU TODD Report Released Date/Time: Dec 08, 2021 05:00 PM Reporting Lab: [facility] [address] [facility] [address] Performing Lab: [facility] [address] [facility] [address] UREA NITROGEN 6 L 7-25 SODIUM 134 L 135-145 POTASSIUM 3.7 3.5-5.0 CHLORIDE 103 100-110 CARBON DIOXIDE 23 20-30 ANION GAP 8 4-16 GLUCOSE 112 H 65-100 CREATININE 0.70 0.5-1.5 CALCIUM 8.1 L 8.5-10.5 eGFR(CKD-EPI 2020) >90.0 >60 Dec 09, 2021 06:46 AM [facility] CBC PROFILE Sp ecimen Type: BLOOD No comment enter ed. Ordering Provid er: ISATU TODD Report Released Date/Time: Dec 08, 2021 05:00 PM Reporting Lab: [facility] [address] [facility] [address] Performing Lab: [facility] [address] [facility] [address] WBC 7.1 4.5-11.0 RBC 4.40 4.23-5.66 HGB [...] 0.00 0-0 Dec 08, 2021 06:39 AM [place] [employer] T [facility] MAGNESIUM Sp ecimen Type: PLASMA Comment: Testin g Performed on Evocalize (405) SN:[id number] Ordering Provid er: ISATU TODD Report Released Date/Time: Dec 07, 2021 10:32 AM Reporting Lab: [facility] [address] [facility] [address] Performing Lab: [facility] [address] [facility] [address] MAGNESIUM 1.5 L 1.6-2.6 Dec 08, 2021 [place] [employer] T P4 GLU,BUN,CREAT,LYTES,CA Speci men Type: PLASMA 06:39 AM [facility] Comment: Testin g Performed on Evocalize (405) SN:[id number] Ordering Provid er: ISATU TODD Report Released Date/Time: Dec 07, 2021 10:32 AM Reporting Lab: [employer] T [facility] [address] [facility] [address] Performing Lab: [facility] [address] [facility] [address] UREA NITROGEN 6 L 7-25 SODIUM 136 135-145 POTASSIUM 3.3 L 3.5-5.0 CHLORIDE 104 100-110 CARBON DIOXIDE 22 20-30 ANION GAP 10 4-16 GLUCOSE 133 H 65-100 CREATININE 0.76 0.5-1.5 CALCIUM 8.4 L 8.5-10.5 eGFR(CKD-EPI 2020) >90.0 >60 Dec 08, 2021 06:39 AM [place] [employer] T [facility] CBC PROFILE Sp ecimen Type: BLOOD No comment enter ed. Ordering Provid er: ISATU TODD Report Released Date/Time: Dec 07, 2021 10:32 AM Reporting Lab: [facility] [address] [facility] [address] Performing Lab: [facility] [address] [facility] [address] WBC 8.4 4.5-11.0 RBC 4.75 4.23-5.66 HGB [...] NRBC 0.00 0-0 Dec 07, 2021 [facility] P4 GLU,BUN,CREAT,LYTES,CA Speci men Type: PLASMA 06:42 AM [facility] Comment: Tests performed on Evocalize (405 SN:[id number] Ordering Provid er: PORFIRIO WALTERS Report Released Date/Time: Dec 06, 2021 06:57 PM Reporting Lab: [facility] [address] [facility] [address] Performing Lab: [facility] [address] [facility] [address] UREA NITROGEN 9 7-25 SODIUM 135 135-145 POTASSIUM 3.5 3.5-5.0 CHLORIDE 103 100-110 CARBON DIOXIDE 22 20-30 ANION GAP 10 4-16 GLUCOSE 92 65-100 CREATININE 0.73 0.5-1.5 CALCIUM 8.0 L 8.5-10.5 eGFR(CKD-EPI 2020) >90.0 >60 Dec 07, 2021 06:42 [place] LIVER PROFILE Specimen Typ e: PLASMA AM [facility] Comment: Tests performed on Dimers Lab Cash Posting Clerk (405) SN:[id number] Ordering Provid er: PORFIRIO WALTERS Report Released Date/Time: Dec 06, 2021 06:57 PM Reporting Lab: [facility] [address] [facility] [address] Performing Lab: [facility] [address] [facility] [address] PROTEIN, TOTAL 5.7 L 6.0-8.5 ALBUMIN 2.4 L 3.2-5.0 BILIRUBIN, TOTAL 0.4 0.2-1.2 ALKALINE PHOSPHATASE 109 40-150 ALT(SGPT) 10 7-52 AST(SGOT) 15 5-34 FIB-4 SCORE 1.92 <2.67 Dec 07, 2021 06:42 AM [facility] CBC PROFILE Specimen Type: BLOOD [facility] No comment enter ed. Ordering Provid er: PORFIRIO WALTERS Report Released Date/Time: Dec 06, 2021 06:57 PM Reporting Lab: [facility] [address] [facility] [address] Performing Lab: [facility] [address] [facility] [address] WBC 5.7 4.5-11.0 RBC 4.15 L 4.23-5.66 [...] [facility] %) AUTOMATED Comment: Tests performed on Evocalize (405) SN:[id number] Ordering Provid er: ISATU TODD Report Released Date/Time: Dec 07, 2021 10:28 AM Reporting Lab: [place] [facility] [address] [facility] [address] Performing Lab: [place] [facility] [address] [facility] [address] RETICULOCYTES (%) AUTOMATED 1.23 0. 6-2.0 RETICULOCYTES (ABS) AUTOMATED 0.052 0.030-0.090 Dec 06, 2021 09:45 [place] MRSA SURVL NARES Specimen Ty pe: NARES PM [facility] DNA No comment enter ed. Ordering Provid er: ALVARO VARHGESE Report Released Date/Time: Dec 07, 2021 02:20 AM Reporting Lab: [place] [facility] [address] [facility] [address] Performing Lab: [place] [facility] [address] [facility] [address] MRSA SURVL NARES DNA NEGATIVE NEGATIVE Dec 06, 2021 06:00 [place] URINALYSIS W/REFLEX TO Speci men Type: URINE PM [facility] CULTURE No comment enter ed. Ordering Provid er: JELANI SÁNCHEZ Report Released Date/Time: Dec 06, 2021 11:57 AM Reporting Lab: [place] [facility] [address] [facility] [address] Performing Lab: [place] [facility] [address] [facility] [address] URINE COLOR Arlin YELLOW SPECIFIC GRAVITY 1.029 [...] 21, RIVER VARIANT Comment: https://www.cdc.gov/coronavirus/2019-ncov/cases-updates/variant- surveillance/variant-info.html The [employer] SARS CoV 2 [employer] Assay-GX is a next-generation sequencing (NGS) assa 2021 [facility] SEQUENCING y that determine s the complete genome sequence of the SARS-CoV-2 virus. The assay contains variant-tolerant primers to broaden and improve the coverage for variant detection and increase the sensitivity 12:00 [facility] PNL(WH) of the panel to enable detection from lower viral titer samples. The assay is run on the Attention Point Sequencer, which performs automated library preparation, sequencing, analysis, and reporting. PM The sequence an alysis includes determination of viral phylogenetic lineage by comparison to the reference strain Wu[place]-Hu-1, GenBank: [id number]. Sequence determination may not be possible owing [...] [facility] [address] [facility] [address] Performing Lab: [facility] [address] [facility] [address] SARS-CoV-2 CLADE() 22C (OMICRON) SARS-CoV-2 LINEAGE() BA.2.12.1 Dec 06, 2021 12:00 [facility] COVID-19 AG SCREEN Specimen Type: NASAL CAVITY PM [facility] PANEL BINAX(405) Comment: Testi ng Performed By: Mike Briscoe Ordering Provid er: JELANI SÁNCHEZ Report Released Date/Time: Dec 08, 2021 08:23 AM Reporting Lab: [facility] [address] [facility] [address] Performing Lab: [facility] [address] [facility] [address] COVID-19 AG SCRN(wrj BINAX) POSITIVE HH NE G Dec 06, 2021 12:00 PM [facility] TROPONIN II Sp ecimen Type: PLASMA Comment: Tests performed on Pham Cash Posting Clerk (405) SN:[id number] Ordering Provid er: JELANI SÁNCHEZ Report Released Date/Time: Dec 06, 2021 11:57 AM Reporting Lab: [facility] [address] [place] [facility] [place] [address] Performing Lab: [facility] [address] [facility] [address] TROPONIN II 0.03 0.00-0.29 Dec 06, 2021 12:00 PM [facility] LIVER PROFILE Sp ecimen Type: PLASMA Comment: Testin g Performed on [employer]ing Clerk ([id number]) [id number] Ordering Provid er: JELANI SÁNCHEZ Report Released Date/Time: Dec 06, 2021 11:57 AM Reporting [facility] [address] [facility] [address] Performing Lab: [facility] [address] [facility] [address] PROTEIN, TOTAL 6.6 6.0-8.5 ALBUMIN 2.8 L 3.2-5.0 BILIRUBIN, TOTAL 0.6 0.2-1.2 ALKALINE PHOSPHATASE 134 40-150 ALT(SGPT) 13 7-52 AST(SGOT) 18 5-34 FIB-4 SCORE 1.94 <2.67 Dec 06, 2021 [facility] [place] P4 GLU,BUN,CREAT,LYTES,CA Speci men Type: PLASMA 12:00 PM [facility] Comment: Testin g Performed on [employer]ing Clerk ([id number]) SN:[id number] Ordering Provid er: JELANI SÁNCHEZ Report Released Date/Time: Dec 06, 2021 11:57 AM Reporting Lab: [facility] [address] [facility] [address] Performing Lab: [facility] [address] [facility] [address] UREA NITROGEN 13 7-25 SODIUM 138 135-145 POTASSIUM 3.8 3.5-5.0 CHLORIDE 103 100-110 CARBON DIOXIDE 23 20-30 ANION GAP 12 4-16 GLUCOSE 105 H 65-100 CREATININE 0.90 0.5-1.5 CALCIUM 8.7 8.5-10.5 eGFR(CKD-EPI 2020) >90.0 >60 Dec 06, 2021 12:00 PM [facility] B[facility] Sp ecimen Type: PLASMA Comment: Tests performed on Ph[employer] Posting Clerk (405) [id number] Ordering Provid er: JELANI SÁNCHEZ Report Released Date/Time: Dec 06, 2021 11:57 AM Reporting Lab: [facility] [address] [facility] [address] Performing Lab: [facility] [address] [facility] [address] BNP(P) 224.8 H 10-100 Dec 06, 2021 [facility] [place] COVID-19+FLU/RSV DIAGNOSTIC Spe cimen Type: NASOPHARYNX 12:00 PM [facility] PANEL(405) Comment: Tests performed on [employer] (405) Critical results called to and read back by: ALESHIA WILKINSON RN 12/06/21 @ 1312 Ordering Provid er: JELANI SÁNCHEZ Report Released Date/Time: Dec 06, 2021 11:57 AM Reporting Lab: [facility] T [facility] [address] [facility] [address] Performing Lab: [place] [facility] [address] [facility] [address] FLU A(PCR) NEGATIVE NEGATIVE FLU B(PCR) NEGATIVE NEGATIVE RSV(PCR) NEGATIVE NEGATIVE COVID-19([id number]) DETECTED HH NO T DETECTED Dec 06, 2021 12:00 PM [facility] PROFILE Sp ecimen Type: BLOOD No comment enter ed. Ordering Provid er: JELANI SÁNCHEZ Report Released Date/Time: Dec 06, 2021 11:57 AM Reporting Lab: [facility] [address] [facility] [address] Performing Lab: [facility] [address] [facility] [address] WBC 7.2 4.5-11.0 RBC 4.86 4.23-5.66 HGB [...] WHITE 2021 09:20 /min mm[Hg] R[place] PM [facility] Dec 13, 97.9 F 82 108/62 20 /min 96 % 2021 03:27 /min mm[Hg] R[facility] PM T [facility] Dec 13, 0 WHITE 2021 02:44 R[place] PM T [facility] Dec 13, 0 WHITE 2021 08:15 [place] AM [facility] Dec 13, 0 WHITE 2021 05:18 [place] AM [facility] Social History: Smoking Status (Most current) and Tobacco Use (All prior to encounter date) This section includes the most current, and the historical, smoking and tobacco-related health factors from the MD facility where the Encounter took place.Current Smoking Status This section includes the most current smoking, or tobacco-related health factor, from the MD facility where the Encounter took place. Date/Time Current Smoking Status Comment Facility Dec 06, 2021 11:40 AM QUIT TOBACCO USE > 7 YEARS AGO [facility] Tobacco Use History This section includes a history of the smoking, or tobacco- related health factors, that were collected on or before the date of the Encounter. The data comes from the MD facility where the Encounter took place. Date/Time Smoking Status/Tobacco Use Comment [facility] Apr 01, 2020 01:16 PM QUIT TOBACCO USE 1-7 YEARS AGO [facility] Mar 24, 2020 03:00 PM QUIT [...] TOBACCO USE IN PAST YEAR [facility] May 01, 2016 11:19 AM QUIT TOBACCO USE IN PAST YEAR [facility] [place] [facility] Mar 16, 2016 12:50 PM V1-PT DECLINES REF TO TOBACCO [facility] CESS PR[facility] Mar 16, 2016 12:50 PM V1-PT THINKING ABOUT QUIT [facility] TOBACCO USE Aug 12, 2015 08:48 AM CURRENT SMOKER [facility] Yates [facility] Radiology Reports: +/- 30 days [...] the Encounter. The data comes from all MD treatment facilities. Date/Time Radiology Report Provider Source Dec 13, 2021 12:57 PM MRI ABDOMEN W/WO CONTRAST: MARYELLEN LONG LUCAS LARES N [id number] -1950 [facility] Exm Date: DEC 13, 2021@12:57 Req Phys: ISATU TODD Loc: OP Unknown/0 12-15-2021@13:20 Img Loc: MRI IMAGING (OOS) Service: [facility]ZGENERAL MEDICINE (Case [id number] COMPLETE) MRI ABDOMEN W/WO CONTRAST (M RI Detailed) CPT:91880 Reason for Study: further characterization of a [...] new lyphadenopathy REQUESTING MD: Isatu Todd PAGER: [phone] PHONE: [phone] Weight: 232.2 lb [105.32 kg] (12/12/2021 05:00) [...] patient will need to arrange for a screw driver operator to take him/her home after [...] 15, 2021 Date Verified: DEC 15, 2021 Strategic Planning Director E-Sig:/ES/MARYELLEN LONG Report: MRI ABDOMEN W/WO [...] MALIGNANCY Primary Interpreting Staff: Staff AMELIA THOMAS (Strategic Planning Director) / Dec 10, 2021 09:[address] ABDOMEN & PELVIS: [facility]IDE [facility] LUCAS MEEK N [id number] -1950 M SERVICE [facility] Ex Date: DEC 10, 2021@09:30 Req Phys: ISATU TODD Loc: 1S MED/12-10@10:57 Img Loc: CT SCAN (OOS) Service: [facility] MEDICINE (Case [id number] COMPLETE) CT ABD & PELVIS WITHOUT CONT RAST (CT Detailed) CPT:30962 Reason for Study: 71 yo male with [...] INDEX - NO HEIGHTS FOUND Pager number: [phone] STAT orders MUST be call ed to RADIOLOGY [phone] to speak to the appropriate solids control technician. Report Status: Verified Date Reported: DEC 10, 2021 Date Verified: DEC 10, 2021 Strategic Planning Director E-Sig: Report: EXAM: CT abdomen and [...] ph nodes. READING PHYSICIAN: Ramone Munoz D.O. [phone] 12/10/2021 10:55 EDT [facility] National Teleradiology Program [phone] (For Medical Practitioner Use Only ) [address] [facility], [facility] [address], [address] [place] [address] Attention Patients / Veterans: If you have ques tions or concerns about these test results, please contact your o rdering provider or primary care team. Primary Diagnostic Code: SIGNIFICANT ABNORMALIT Y, ATTN NEEDED Primary Interpreting Staff: RADIOLOGY,OUTSIDE SERVICE, Staff Physician / Dec 09, 2021 07:34 AM BASW (MODIFIED): JESSIE CHENEY [facility] [facility] [place] LUCAS MEEK N [id number] -1950 [facility] Exm Date: DEC 09, 2021@07:34 Req Phys: ISATU TODD Josseline Loc: 1S MED/12-09@11:26 Img Loc: XRAY (OOS) Service: [facility] MEDICINE (Case [id number] COMPLETE) BASW (MODIFIED) (RAD Detaile d) CPT:48399 Contrast Media : Barium Reason for Study: dysphagia ?esophageal spasm Clinical History: Report Status: Verified Date Reported: DEC 09, 2021 Date Verified: DEC 09, 2021 Strategic Planning Director E-Sig:/ES/JESSIE CHENEY Report: BASW (MODIFIED) , 12/09/2021 [...] REQUIRED Primary Interpreting Staff: JESSIE CHENEY, RADIOLOGIST (Strategic Planning Director) /TLC Dec 06, 2021 12:[address] CHEST (INCLUDES ADRENALS): [facility]UCAS [facility]EEK N [id number] -1950 [facility] Exm Date: DEC 06, 2021@12:59 Req Phys: GONZALO,JELANI J Pat Loc: [facility] ED DAYS M 1RD (Req'g Loc) Img Loc: CT SCAN (OOS) Service: Unknown (Case [id number] COMPLETE) CT THORAX W/O CONT (CT Detai led) CPT:08993 Reason for Study: Opacification right chest Clinical History: No contrast allergy BUN: 13 (12/06/21 12:00) CREATI: 0.90 (12/06/21 12:00) eGFR 05/16/21 09:43 52 L Weight: 232.6 lb [105.51 kg] (12/06/2021 11:40) BODY MASS INDEX - NO HEIGHTS FOUND Pager number: [phone] STAT orders MUST be called t o RADIOLOGY [phone] to speak to the appropriate solids control technician. Indications - Other: Opacification right chest, covid positive, lung cancer histo Report Status: Verified Date Reported: DEC 06, 2021 Date Verified: DEC 06, 2021 Strategic Planning Director E-Sig:/ES/JESSIE CHENEY Report: CT THORAX W/O [...] REQUIRED Primary Interpreting Staff: JESSIE CHENEY, RADIOLOGIST (Strategic Planning Director) Primary Interpreting Resident: PRINCE CHAMPION, Resident /BR Dec 06, 2021 11:58 AM CHEST SINGLE VIEW: JESSIE CHENEY DOUGLAS N [id number] -1950 M [facility] Exm Date: DEC 06, 2021@11:58 Req Phys: JELANI SÁNCHEZ Pat Loc: [facility] ED DAYS M 1RD (Req'g Loc) Img Loc: XRAY (OOS) Service: Unknown (Case [id number] COMPLETE) CHEST SINGLE VIEW (RAD Detai led) CPT:59642 Proc Modifiers : PORTABLE EXAM Reason for Study: SOB, home covid test positive Clinical History: Report Status: Verified Date Reported: DEC 06, 2021 Date Verified: DEC 06, 2021 Strategic Planning Director E-Sig:/ES/JESSIE CHENEY Report: Exam type: Chest [...] REQUIRED Primary Interpreting Staff: JESSIE CHENEY, RADIOLOGIST (Strategic Planning Director) /TLC Pathology Reports: +/- 30 days [...] the Encounter. The data comes from all MD treatment facilities. Date/Time Pathology Report Provider Source Jan 03, 2022 10:28 AM LR SURGICAL PATHOLOGY REPORT: STEFANY MILLER LOCAL TITLE: LR SURGICAL PATHOLOGY REPORT [facility] STANDARD TITLE: PATHOLOGY REPORT DATE OF NOTE: JAN 03, 2022@10:28:01 ENTRY DATE: JAN 03, 2022@10:28:01 AUTHOR: NIURKA MILLER EXP COSIGNER: URGENCY: STATUS: COMPLETED $APHDR Reporting Lab: [facility] [CLIA# [id number]] [address] [place] [address] - - - - - - [...] automatically d ocumented from SURGERY package case #[id number] Field (#32) PRINCIPAL PRE-OP DIAGNOSIS, (#.72) OTHER [...] automatically d ocumented from SURGERY package case #[id number] Field (#34) PRINCIPAL POST-OP DIAG, (#.74) OTHER [...] Label: Lucas Meek Paperwork: Lucas Meek Cassette: [id number];..;KALYANI;.;405;[phone] Specimen is labeled: ES bx Received in formalin are several pieces of pale boyd and brown tissue, 1.2 x 0.7 cm in aggregate. Submitted entirely in 1 cassette [id number];..;KALYANI;.;405;[id number] SAW 12/15/2021 Microscopic exam: *+* MODIFIED REPORT [...] report in rendering the final pathologic diagnosis. [address] [address] CPT: 15439 /emely/ NIURKA Yeung MD Signed Jan 03, 2022@10:28 Performing Laboratory: Surgical Pathology Report Performed By: [facility] [CLIA# [id number]] [address] [place] [address] $FTR - - - - - [...] - - LUCAS MEEK STANDARD FORM 515 ID:[id number] SEX:M :1950 AGE: 71 LOC: [facility] END PCP: Isatu Todd /emely/ NIURKA MILLER Staff Signed: 01/03/2022 10:28 Dec 21, 2021 11:46 AM LR SURGICAL PATHOLOGY REPORT: STEFANY MILLER [facility] LOCAL TITLE: LR SURGICAL PATHOLOGY REPORT [facility] STANDARD TITLE: PATHOLOGY REPORT DATE OF NOTE: DEC 21, 2021@11:46:59 ENTRY DATE: DEC 21, 2021@11:46:59 AUTHOR: NIURKA MILLER EXP COSIGNER: URGENCY: STATUS: COMPLETED $APHDR Reporting Lab: [facility] [CLIA# [id number]] [address] [place] [address] - - - - - - [...] automatically d ocumented from SURGERY package case #[id number] Field (#32) PRINCIPAL PRE-OP DIAGNOSIS, (#.72) OTHER [...] automatically d ocumented from SURGERY package case #[id number] Field (#34) PRINCIPAL POST-OP DIAG, (#.74) OTHER [...] Label: Lucas Meek Paperwork: Lucas Meek Cassette: [id number];..;KALYANI;.;405;[id number] Specimen is labeled: ES bx Received in formalin are several pieces of pale boyd and brown tissue, 1.2 x 0.7 cm in aggregate. Submitted entirely in 1 cassette [id number];..;KALYANI;.;405;[id number] SAW 12/15/2021 Microscopic exam: DIAGNOSIS: A. 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 Kendell long. TIARA Coombs was notified on 12/21/21. The attending pathologist who signature mansoor ears on this report has reviewed all diagnostic slides and has edited t he gross and/or microscopic portion of this report in rendering the final pathologic diagnosis. [address] [address] CPT: 38152 /emely/ NIURKA Yeung MD Signed Dec 21, 2021@11:46 Performing Laboratory: Surgical Pathology Report Performed By: [facility] [CLIA# [id number]] [address] [place] [address] $FTR - - - - - [...] - - LUCAS MEEK STANDARD FORM 515 ID:[id number] SEX:M :1950 AGE: 71 LOC: [facility] END PCP: Isatu Todd /charmaine Yeung MD Signed: 12/21/2021 11:46 Dec 06, 2021 03:30 PM LR MICROBIOLOGY REPORT: [facility] Reporting Lab: [facility] [CLIA# [id number]] [address] [place] [address] Accession [UID]: [id number] [[id number]] Receiv ed: Dec 06, 2021@16:14 Collection sample: BLOOD CUL T BOTTLE(NIRMAL/AERO)Collection date: Dec 06, 2021 15:30 Site/Specimen: BLOOD Provider: JELANI SÁNCHEZ Comment on specimen: LAC Test(s) ordered: BLOOD CULTURE ANAEROBI C....... completed: Dec 12, 2021 06:18 * BACTERIOLOGY FINAL REPORT => Dec 12, 2021 06:1 8 TECH CODE: [id number] Bacteriology Remark(s): NO GROWTH IN 5 DAYS =--=--=--=--=--=--=--=--=--=--=--=--=--= --=--=--=--=--=--=--=--=--=--=--=--=-- Performing Laboratory: Bacteriology Report Performed By: [facility] [CLIA# [id number]] [address] [place] [address] Dec 06, 2021 03:30 PM LR MICROBIOLOGY REPORT: [facility] Reporting Lab: [facility] [CLIA# [id number]] [address] [place] [address] Accession [UID]: [id number] [[id number]] Receiv ed: Dec 06, 2021@16:14 Collection sample: BLOOD CUL T BOTTLE(NIRMAL/AERO)Collection date: Dec 06, 2021 15:30 Site/Specimen: BLOOD Provider: JELANI SÁNCHEZ Comment on specimen: LAC Test(s) ordered: BLOOD CULTURE AEROBIC. ........ completed: Dec 12, 2021 06:17 * BACTERIOLOGY FINAL REPORT => Dec 12, 2021 06:1 7 TECH CODE: [id number] Bacteriology Remark(s): NO GROWTH IN 5 DAYS =--=--=--=--=--=--=--=--=--=--=--=--=--= --=--=--=--=--=--=--=--=--=--=--=--=-- Performing Laboratory: Bacteriology Report Performed By: [facility] [CLIA# [id number]] [address] [place] [address]
--- OUTSIDE RECORDS SUMMARY | 2022-01-19 08:52 | XMS_ITS ---
DAILY HOSPITALIZATION DATA [facility] Encounter Summary Created on:December 14, 2021 Patient:LUCAS MEEK Sex:Male :1950 Author Organization [facility] Address [address] [place] [id number] Support Name Relationship Address Phone YUSRA MEEK Unavailable [address] [place] [address] YUSRA MEEK Unavailable [address] [place] [facility] [place] [address] CLAY MOSLEY Unavailable Unavailable SJ SANTACRUZ Unavailable [...] MEDICARE MEDICARE PART Jun 18, PART B [id number] DO KALYANI PATIENT (WNR) (M) B 2016 13A 1 UGLAS MEDICARE MEDICARE PART Jun 18, PART A [id number] DO KALYANI PATIENT (WNR) (M) A 2017 VH81 2 LAS MEDICARE MEDICARE PART Jun 18, PART A [id number] KALYANIDO PATIENT (WNR) (M) A 2016 13A 1 UGLAS MEDICARE MEDICARE PART Jun 18, PART B [id number] DO KALYANI PATIENT (WNR) (M) B 2017 VH81 2 UGLAS UNITED MEDICARE MCR(Jun 18 [id number] Luz MEEK PATIENT HEALTHCARE ADVANTAGE NR) 2021 37 0 [facility] (WNR) Selected Encounter This section includes the information on record at [place] for the Encounter. Date/Time Encounter Type Encounter Description Reason Provider Source Dec 14, 2021 02:00 Inpatient Visit DAILY HOSPITALIZATION DATA AM [facility] Encounter Template Text not used by [place] Plan of Treatment: Future Appointments (+ 6 months) and Future Tests (+/- 45 days) The Plan of Treatment section includes future care activities for the patient from all [place] treatmentfacilities. This section includes future appointments and future orders which are active, pending orscheduled.Future Appointments This section includes appointments that were scheduled to occur 6 months from the date of the Encounter, up to a maximum of 20 appointments. The data comes from all [place] treatment facilities. Appointment Date/Time Appointment Type Appointment Facili ty Name Dec 21, 2021 08:00 AM [place] [facility] Jan 06, 2022 02:00 PM [place] [facility] Jan 10, 2022 11:30 AM [facility] - MEDICINE [facility] Jan 24, 2022 08:00 AM [place] [facility] Feb 21, 2022 10:00 AM [place] [facility] Mar 21, 2022 10:30 AM AMBULATORY - [...] the Encounter. The data comes from all [place] treatment [facility]. Test Date/Time Test Type Test Details Facility Name October 31, 2021 07:37 AM Consult Order [facility]-EGD [facility] Cons Secondary History Teacher's Choice November 15, 2021 10:37 AM Consult Order [facility] CARE-PODIATRY Cons Secondary History Teacher's Choice Dec 06, 2021 12:52 PM [place]acy [place] In[place] [facility] Dec 06, 2021 03:24 PM Pharmacy [place] [facility] Dec 06, 2021 03:40 PM Pharmacy [place] [facility] Dec 15, 2021 08:41 AM Consult Order SPEECH PATHOLOGY [place] OUT[place] Cons [facility] Secondary History Teacher's Choice Jan 15, 2022 10:08 PM Consult Order [facility] CARE-PALLIATIVE CARE Cons Secondary History Teacher's Choice Lab Results: +/- 30 days [...] Reference Range Comment Dec 15, 2021 [place] P4 GLU,BUN,CREAT,LYTES,CA Speci men Type: PLASMA 06:43 AM [facility] Comment: Tests performed on Newman Infinite (405) SN:[id number] Ordering Provid er: ISATU TODD Report Released Date/Time: Dec 11, 2021 07:42 AM Reporting Lab: [facility] [address] [facility] [address] Performing Lab: [facility] [address] [facility] [address] UREA NITROGEN 9 7-25 SODIUM 137 135-145 POTASSIUM 3.8 3.5-5.0 CHLORIDE 105 100-110 CARBON DIOXIDE 26 20-30 ANION GAP 6 4-16 GLUCOSE 102 H 65-100 CREATININE 0.64 0.5-1.5 CALCIUM 8.1 L 8.5-10.5 eGFR(CKD-EPI 2020) >90.0 >60 Dec 15, 2021 06:43 AM [facility] CBC PROFILE Sp ecimen Type: BLOOD No comment enter ed. Ordering Provid er: ISATU TODD Report Released Date/Time: Dec 10, 2021 07:22 AM Reporting Lab: [facility] [address] [facility] [address] Performing Lab: [facility] [address] [facility] [address] WBC 5.7 4.5-11.0 RBC 4.22 L 4.23-5.66 [...] 2 NUE, FFPE See full report in Fantasy [employer]pper Image display viewer/tab#LAB-Reference Ordering Provid er: NIURKA MILLER Report Released Date/Time: Dec 21, 2021 12:11 PM Reporting Lab: [facility] [address] [facility] [facility] [address] Performing Lab: [facility] CYTOGENETIC FISH([facility]) comment Dec 14, 2021 [facility] P4 GLU,BUN,CREAT,LYTES,CA Speci men Type: PLASMA 06:27 AM [facility] Comment: Tests performed on Newman Infinite (405) SN:[id number] Ordering Provid er: ISATU TODD Report Released Date/Time: Dec 11, 2021 07:42 AM Reporting Lab: [facility] [address] [facility] [address] Performing Lab: [facility] [address] [facility] [address] UREA NITROGEN 10 7-25 SODIUM 137 135-145 [...] Reporting Lab: [facility] [address] [facility] [address] Performing Lab: [facility] [address] [facility] [address] WBC 6.0 4.5-11.0 RBC 4.29 4.23-5.66 HGB [...] GLU,BUN,CREAT,LYTES,CA Speci men Type: PLASMA 06:34 AM [facility] Comment: Tests performed on Newman Infinite (405) SN:[id number] Ordering Provid er: ISATU TODD Report Released Date/Time: Dec 11, 2021 07:42 AM Reporting Lab: [facility] [address] [facility] [address] Performing Lab: [facility] [address] [facility] [address] UREA NITROGEN 12 7-25 SODIUM 136 135-145 [...] Reporting Lab: [facility] [address] [facility] [address] Performing Lab: [facility] [address] [facility] [address] WBC 5.6 4.5-11.0 RBC 4.28 4.23-5.66 HGB [...] 0.00 0-0 Dec 12, 2021 06:21 AM [facility] CBC PROFILE Sp ecimen Type: BLOOD No comment enter ed. Ordering Provid er: ISATU TODD Report Released Date/Time: Dec 10, 2021 07:22 AM Reporting Lab: [facility] [address] [facility] [address] Performing Lab: [facility] [address] [facility] [address] WBC 5.5 4.5-11.0 RBC 4.37 4.23-5.66 HGB [...] 0-0 Dec 12, 2021 [facility] P4 GLU,BUN,CREAT,LYTES,CA Speci men Type: PLASMA 06:21 AM [facility] Comment: Tests performed on Newman Infinite (246) SN:[id number] Ordering Provid er: ISATU TODD Report Released Date/Time: Dec 11, 2021 07:42 AM Reporting Lab: [facility] [address] [facility] [address] Performing Lab: [facility] [address] [facility] [address] UREA NITROGEN 11 7-25 SODIUM 139 135-145 POTASSIUM 4.1 3.5-5.0 CHLORIDE 107 100-110 CARBON DIOXIDE 24 20-30 ANION GAP 8 4-16 GLUCOSE 110 H 65-100 CREATININE 0.70 0.5-1.5 CALCIUM 8.3 L 8.5-10.5 eGFR(CKD-EPI 2020) >90.0 >60 Dec 12, 2021 06:00 AM [place] [facility] MAGNESIUM Sp ecimen Type: PLASMA Comment: Testin g Performed on Newman Infinite (405) SN:[id number] Ordering Provid er: ISATU TODD Report Released Date/Time: Dec 12, 2021 08:24 AM Reporting Lab: [place] [facility] [address] [facility] [address] Performing Lab: [place] [facility] [address] [facility] [address] MAGNESIUM 1.8 1.6-2.6 Dec 12, 2021 06:00 AM [place] [facility] PHOSPHORUS Sp ecimen Type: PLASMA Comment: Testin g Performed on Newman Infinite (405) SN:[id number] Ordering Provid er: ISATU TODD Report Released Date/Time: Dec 12, 2021 08:24 AM Reporting Lab: [place] [facility] [address] [facility] [address] Performing Lab: [place] [facility] [address] [facility] [facility] [address] PHOSPHORUS 3.1 2.5-5.0 Dec 11, 2021 06:15 AM [place] [facility] ELECTROLYTES Sp ecimen Type: PLASMA Comment: Tests performed on Newman Infinite (405) SN:[id number] Ordering Provid er: ISATU TODD Report Released Date/Time: Dec 10, 2021 07:22 AM Reporting Lab: [place] [facility] [address] [facility] [address] Performing Lab: [place] [facility] [address] [facility] [facility] [address] SODIUM 137 135-145 POTASSIUM 4.3 3.5-5.0 CHLORIDE 108 100-110 CARBON DIOXIDE 20 20-30 ANION GAP 9 4-16 Dec 11, 2021 06:15 AM [place] [facility] CBC PROFILE Sp ecimen Type: BLOOD Comment: Result s checked Ordering Provid er: ISATU TODD Report Released Date/Time: Dec 10, 2021 07:22 AM Reporting Lab: [place] [facility] [address] [facility] [address] Performing Lab: [facility] [place] [facility] [address] [facility] [address] WBC 5.8 4.5-11.0 RBC 4.37 4.23-5.66 HGB [...] 0.00 0-0 Dec 11, 2021 06:00 AM [facility] PHOSPHORUS Sp ecimen Type: PLASMA Comment: Tests performed on Newman Infinite (149) SN:[id number] Results checked Ordering Provid er: ISATU TODD Report Released Date/Time: Dec 11, 2021 07:44 AM Reporting Lab: [facility] [place] [facility] [address] [facility] [address] Performing Lab: [place] [address] [facility] [address] PHOSPHORUS 3.0 2.5-5.0 Dec 10, 2021 08:05 AM [place] [facility] PHOSPHORUS Sp ecimen Type: PLASMA Comment: [place] [id number] on Dec 10, 2021@08:31 Tests performed on Newman Infinite (405) SN:[id number] Ordering Provid er: ISATU TODD Report Released Date/Time: Dec 10, 2021 07:22 AM Reporting Lab: [place] [facility] [address] [place] [facility] [place] [address] Performing Lab: [place] [facility] [address] [place] [facility] [place] [address] PHOSPHORUS 1.8 L 2.5-5.0 Dec 10, 2021 08:05 AM [place] [facility] MAGNESIUM Sp ecimen Type: PLASMA Comment: [place] [id number] on Dec 10, 2021@08:31 Tests performed on Newman Infinite (405) SN:[id number] Ordering Provid er: ISATU TODD Report Released Date/Time: Dec 10, 2021 07:22 AM Reporting Lab: [place] [facility] [address] [place] [facility] [place] [address] Performing Lab: [place] [facility] [address] [place] [facility] [place] [address] MAGNESIUM 1.7 1.6-2.6 Dec 10, 2021 08:05 AM [place] UREA NITROGEN Specimen Type: PLASMA [facility] Comment: [place] [id number] on Dec 10, 2021@08:31 Tests performed on Newman Infinite (405) SN:[id number] Ordering Provid er: ISATU TODD Report Released Date/Time: Dec 10, 2021 07:22 AM Reporting Lab: [place] [facility] [address] [place] [facility] [place] [address] Performing Lab: [place] [facility] [address] [place] [facility] [place] [address] UREA NITROGEN 8 7-25 Dec 10, 2021 08:05 AM [place] [facility] ELECTROLYTES Sp ecimen Type: PLASMA Comment: [place] [id number] on Dec 10, 2021@08:31 Tests performed on Newman Infinite (405) SN:[id number] Ordering Provid er: ISATU TODD Report Released Date/Time: Dec 10, 2021 07:22 AM Reporting Lab: [place] [facility] [address] [facility] [address] Performing Lab: [place] [facility] [address] [facility] [address] SODIUM 139 135-145 POTASSIUM 3.7 3.5-5.0 CHLORIDE 107 100-110 CARBON DIOXIDE 24 20-30 ANION GAP 8 4-16 Dec 10, 2021 08:05 AM [place] [facility] CALCIUM Sp ecimen Type: PLASMA Comment: [place] [id number] on Dec 10, 2021@08:31 Tests performed on Pham Cat Driver (405) SN:[id number] Ordering Provid er: ISATU TODD Report Released Date/Time: Dec 10, 2021 07:22 AM Reporting Lab: [place] [facility] [address] [facility] [address] Performing Lab: [place] [facility] [address] [facility] [address] CALCIUM 8.3 L 8.5-10.5 Dec 10, 2021 08:05 AM [place] [facility] GLUCOSE Sp ecimen Type: PLASMA Comment: [place] [id number] on Dec 10, 2021@08:31 Tests performed on Pham Mengero (405) SN:[id number] Ordering Provid er: ISATU TODD Report Released Date/Time: Dec 10, 2021 07:22 AM Reporting Lab: [place] [facility] [address] [facility] [address] Performing Lab: [place] [facility] [address] [facility] [address] GLUCOSE 144 H 65-100 Dec 10, 2021 08:05 [place] CREATININE WITH eGFR Specime n Type: PLASMA AM [facility] PANEL Comment: [place] [id number] on Dec 10, 2021@08:31 Tests performed on Pham Mengero (405) SN:[id number] Ordering Provid er: ISATU TODD Report Released Date/Time: Dec 10, 2021 07:22 AM Reporting Lab: [place] [facility] [address] [facility] [address] Performing Lab: [place] [facility] [address] [facility] [address] CREATININE 0.78 0.5-1.5 eGFR(CKD-EPI 2020) >90.0 >60 Dec 10, 2021 08:05 AM [facility] CBC PROFILE Sp ecimen Type: BLOOD No comment enter ed. Ordering Provid er: ISATU TODD Report Released Date/Time: Dec 10, 2021 07:22 AM Reporting Lab: [facility] [facility] [address] [facility] [address] Performing Lab: [place] [facility] [address] [facility] [address] WBC 7.0 4.5-11.0 RBC 4.54 4.23-5.66 HGB [...] 0.00 0-0 Dec 09, 2021 06:46 AM [facility] MAGNESIUM Sp ecimen Type: PLASMA Comment: Tests performed on Newman Infinite (370) SN:[id number] Ordering Provid er: ISATU TODD Report Released Date/Time: Dec 08, 2021 10:23 AM Reporting Lab: [facility] [address] [facility] [address] Performing Lab: [facility] [address] [facility] [facility] [address] MAGNESIUM 1.6 1.6-2.6 Dec 09, 2021 [facility] P4 GLU,BUN,CREAT,LYTES,CA Speci men Type: PLASMA 06:46 AM [facility] Comment: Tests performed on Newman Infinite (405) SN:[id number] Ordering Provid er: ISATU TODD Report Released Date/Time: Dec 08, 2021 05:00 PM Reporting Lab: [facility] [address] [facility] [facility] [address] Performing Lab: [facility] [address] [facility] [facility] [address] UREA NITROGEN 6 L 7-25 SODIUM 134 [...] Reporting Lab: [facility] [address] [facility] [address] Performing Lab: [facility] [address] [facility] [address] WBC 7.1 4.5-11.0 RBC 4.40 4.23-5.66 HGB [...] NRBC 0.00 0-0 Dec 08, 2021 [place] P4 GLU,BUN,CREAT,LYTES,CA Speci men Type: PLASMA 06:39 AM [facility] Comment: Testin g Performed on Newman Infinite (405) SN:[id number] Ordering Provid er: ISATU TODD Report Released Date/Time: Dec 07, 2021 10:32 AM Reporting Lab: [facility] [address] [facility] [address] Performing Lab: [facility] [address] [facility] [facility] [address] UREA NITROGEN 6 L 7-25 SODIUM 136 135-145 POTASSIUM 3.3 L 3.5-5.0 CHLORIDE 104 100-110 CARBON DIOXIDE 22 20-30 ANION GAP 10 4-16 GLUCOSE 133 H 65-100 CREATININE 0.76 0.5-1.5 CALCIUM 8.4 L 8.5-10.5 eGFR(CKD-EPI 2020) >90.0 >60 Dec 08, 2021 06:39 AM [facility] MAGNESIUM Sp ecimen Type: PLASMA Comment: Testin g Performed on Newman Infinite (405) SN:[id number] Ordering Provid er: ISATU TODD Report Released Date/Time: Dec 07, 2021 10:32 AM Reporting Lab: [facility] [address] [facility] [address] Performing Lab: [facility] [address] [facility] [address] MAGNESIUM 1.5 L 1.6-2.6 Dec 08, 2021 06:39 AM [facility] CBC PROFILE Sp ecimen Type: BLOOD No comment enter ed. Ordering Provid er: ISATU TODD Report Released Date/Time: Dec 07, 2021 10:32 AM Reporting Lab: [facility] [address] [facility] [address] Performing Lab: [facility] [address] [facility] WBC 8.4 [...] LIVER PROFILE Specimen Typ e: PLASMA AM [facility] Comment: Tests performed on Newman Infinite (405 SN:[id number] Ordering Provid er: PORFIRIO WALTERS Report Released Date/Time: Dec 06, 2021 06:57 PM Reporting Lab: [facility] [address] [facility] [address] Performing Lab: [facility] [address] [facility] [address] PROTEIN, TOTAL 5.7 L 6.0-8.5 ALBUMIN 2.4 L 3.2-5.0 BILIRUBIN, TOTAL 0.4 0.2-1.2 ALKALINE PHOSPHATASE 109 40-150 ALT(SGPT) 10 7-52 AST(SGOT) 15 5-34 FIB-4 SCORE 1.92 <2.67 Dec 07, 2021 06:42 AM [facility] CBC PROFILE Specimen Type: BLOOD [facility] No comment enter ed. Ordering Provid er: PORFIRIO WALTERS Report Released Date/Time: Dec 06, 2021 06:57 PM Reporting Lab: [facility] [address] [facility] [address] Performing Lab: [place] [facility] [address] [facility] [address] WBC 5.7 4.5-11.0 RBC 4.15 L 4.23-5.66 [...] ABSOLUTE NRBC 0.00 0-0 Dec 07, 2021 [place] P4 GLU,BUN,CREAT,LYTES,CA Speci men Type: PLASMA 06:42 AM [facility] Comment: Tests performed on Newman Infinite (097) SN:[id number] Ordering Provid er: PORFIRIO WALTERS Report Released Date/Time: Dec 06, 2021 06:57 PM Reporting Lab: [facility] [address] [facility] [address] Performing Lab: [place] [facility] [address] [facility] [address] UREA NITROGEN 9 7-25 SODIUM 135 135-145 POTASSIUM 3.5 3.5-5.0 CHLORIDE 103 100-110 CARBON DIOXIDE 22 20-30 ANION GAP 10 4-16 GLUCOSE 92 65-100 CREATININE 0.73 0.5-1.5 CALCIUM 8.0 L 8.5-10.5 eGFR(CKD-EPI 2020) >90.0 >60 Dec 07, [address] [place] [address] (ABS & Specimen Type: BLOOD 06:00 AM [facility] %) AUTOMATED Comment: Tests performed on Newman Infinite (405) SN:[id number] Ordering Provid er: ISATU TODD Report Released Date/Time: Dec 07, 2021 10:28 AM Reporting Lab: [place] [facility] [address] [facility] [address] Performing Lab: [place] [facility] [address] [facility] [address] RETICULOCYTES (%) AUTOMATED 1.23 0. 6-2.0 RETICULOCYTES (ABS) AUTOMATED 0.052 0.030-0.090 Dec 06, 2021 09:45 [place] MRSA SURVL NARES Specimen Ty pe: NARES PM [facility] DNA No comment enter ed. Ordering Provid er: ALVARO VARGHESE Report Released Date/Time: Dec 07, 2021 02:20 AM Reporting Lab: [place] [facility] [address] [facility] [address] Performing Lab: [place] [facility] [address] [facility] [address] MRSA SURVL NARES DNA NEGATIVE NEGATIVE Dec 06, 2021 06:00 [place] URINALYSIS W/REFLEX TO Speci men Type: URINE PM [facility] CULTURE No comment enter ed. Ordering Provid er: JELANI SÁNCHEZ Report Released Date/Time: Dec 06, 2021 11:57 AM Reporting Lab: [place] [facility] [address] [facility] [address] Performing Lab: [place] [facility] [address] [facility] [address] URINE COLOR Arlin YELLOW SPECIFIC GRAVITY 1.029 [...] 21, [place] VARIANT Comment: https://www.cdc.gov/coronavirus/2019-ncov/cases-updates/variant- surveillance/variant-info.html The [employer] SARS CoV 2 [employer] Research Assay-GX is a next-generation sequencing [...] samples. The assay is run on the Pure Elegance TV Sequencer, which performs automated library preparation, sequencing, analysis, and reporting. PM The sequence an alysis includes determination of viral phylogenetic lineage by comparison to the reference strain Wuhan-Hu-1, GenBank: [id number]. Sequence determination may not be possible owing [...] Dec 06, 2021 01:13 PM Reporting Lab: [facility] [address] [facility] [facility] [address] Performing Lab: [facility] [address] [facility] [address] SARS-CoV-2 CLADE() 22C (OMICRON) SARS-CoV-2 LINEAGE() BA.2.12.1 Dec 06, 2021 12:00 [facility] COVID-19 AG SCREEN Specimen Type: NASAL CAVITY PM [facility] PANEL BINAX(405) Comment: Testi ng Performed By: Mike Briscoe Ordering Provid er: JELANI SÁNCHEZ Report Released Date/Time: Dec 08, 2021 08:23 AM Reporting Lab: [facility] [address] [facility] [address] Performing Lab: [facility] [address] [facility] [address] COVID-19 AG SCRN(wrj BINAX) POSITIVE HH NE G Dec 06, 2021 [facility] P4 GLU,BUN,CREAT,LYTES,CA Speci men Type: PLASMA 12:00 PM [facility] Comment: Testin g Performed on Pham Cat Driver (405) SN:[id number] Ordering Provid er: JELANI SÁNCHEZ Report Released Date/Time: Dec 06, 2021 11:57 AM Reporting Lab: [facility] [address] [facility] [address] Performing Lab: [facility] [address] [facility] [address] UREA NITROGEN 13 7-25 SODIUM 138 135-145 POTASSIUM 3.8 3.5-5.0 CHLORIDE 103 100-110 CARBON DIOXIDE 23 20-30 ANION GAP 12 4-16 GLUCOSE 105 H 65-100 CREATININE 0.90 0.5-1.5 CALCIUM 8.7 8.5-10.5 eGFR(CKD-EPI 2020) >90.0 >60 Dec 06, 2021 12:00 PM [facility] TROPONIN II Sp ecimen Type: PLASMA Comment: Tests performed on Pham Cat Driver (405) SN:[id number] Ordering Provid er: JELANI SÁNCHEZ Report Released Date/Time: Dec 06, 2021 11:57 AM Reporting Lab: [facility] [address] [facility] [address] Performing Lab: [facility] [address] [facility] [address] TROPONIN II 0.03 0.00-0.29 Dec 06, 2021 12:00 PM [facility] BNP(P) Sp ecimen Type: PLASMA Comment: Tests performed on Pham Cat Driver (405) SN:[id number] Ordering Provid er: JELANI SÁNCHEZ Report Released Date/Time: Dec 06, 2021 11:57 AM Reporting Lab: [facility] [address] [facility] [address] Performing Lab: [facility] [address] [facility] [address] BNP(P) 224.8 H 10-100 Dec 06, 2021 12:00 PM [facility] LIVER PROFILE Sp ecimen Type: PLASMA Comment: Testin g Performed on Pham Cat Driver (405) SN:[id number] Ordering Provid er: JELANI SÁNCHEZ Report Released Date/Time: Dec 06, 2021 11:57 AM Reporting Lab: [facility] [address] [facility] [address] Performing Lab[facility] [address] [facility] [address] PROTEIN, TOTAL 6.6 6.0-8.5 ALBUMIN 2.8 L 3.2-5.0 BILIRUBIN, TOTAL 0.6 0.2-1.2 ALKALINE PHOSPHATASE 134 40-150 ALT(SGPT) 13 7-52 AST(SGOT) 18 5-34 FIB-4 SCORE 1.94 <2.67 Dec 06, 2021 [facility] COVID-19+FLU/RSV DIAGNOSTIC Spe cimen Type: NASOPHARYNX 12:00 PM [facility] PANEL(405) Comment: Tests performed on [employer] Genexpert (405) Critical results called to and read back by: ALESHIA WILKINSON RN 12/06/21 @ 1312 Ordering Provid er: JELANI SÁNCHEZ Report Released Date/Time: Dec 06, 2021 11:57 AM Reporting Lab: [facility] [address] [address] Performing Lab: [facility] [address] [address] FLU A(PCR) NEGATIVE NEGATIVE FLU B(PCR) NEGATIVE NEGATIVE RSV(PCR) NEGATIVE NEGATIVE COVID-19([id number]) DETECTED HH NO T DETECTED Dec 06, 2021 12:00 PM [facility] CBC PROFILE Sp ecimen Type: BLOOD No comment enter ed. Ordering Provid er: JELANI SÁNCHEZ Report Released Date/Time: Dec 06, 2021 11:57 AM Reporting Lab: [facility] [address] [address] Performing Lab: [facility] [address] [address] WBC 7.2 4.5-11.0 RBC 4.86 4.23-5.66 HGB [...] dy Source Pressure Rate Mass Index Tom 29, 97.6 F 91 138/68 18 /min 99 % 0 WHITE 2021 08:47 /min mm[Hg] RIVER PM [facility] Dec 14, 0 2021 03:14 RIVER PM T [facility] Dec 14, 97.1 F 91 139/68 20 /min 99 % WHITE 2021 02:23 /min mm[Hg] RIVER PM T [facility] Dec 14, 0 WHITE 2021 10:15 RIVER AM T [facility] Dec 14, 97.5 F 94 138/68 18 /min 97 % 0 WHITE 2021 10:13 /min mm[Hg] RIVER AM [facility] Social History: Smoking Status (Most current) and Tobacco Use (All prior to encounter date) This section includes the most current, and the historical, smoking and tobacco-related health factors from the [place] facility where the Encounter took place.Current Smoking Status This section includes the most current smoking, or tobacco-related health factor, from the [place] facility where the Encounter took place. Date/Time Current Smoking Status Comment Facility Dec 06, 2021 11:40 AM QUIT TOBACCO USE > 7 YEARS AGO [facility] Tobacco Use History This section includes a history of the smoking, or tobacco- related health factors, that were collected on or before the date of the Encounter. The data comes from the [place] facility where the Encounter took place. Date/Time Smoking Status/Tobacco Use Comment [facility] Apr 01, 2020 01:16 PM QUIT TOBACCO USE 1-7 YEARS AGO [facility] Mar 24, 2020 03:00 PM QUIT TOBACCO USE 1-7 YEARS AGO [facility] Feb 21, 2019 04:11 PM QUIT TOBACCO USE 1-7 YEARS AGO [facility] Feb 20, 2019 03:38 PM QUIT TOBACCO USE 1-7 YEARS AGO [facility] Feb 03, 2019 09:50 AM QUIT TOBACCO USE 1-7 YEARS AGO [facility] May 25, 2016 11:53 PM QUIT TOBACCO USE IN PAST YEAR [facility] May 23, 2016 06:57 PM QUIT TOBACCO USE > 7 YEARS AGO [facility] May 19, 2016 03:55 PM QUIT TOBACCO USE IN PAST YEAR [facility] May 19, 2016 10:29 AM QUIT TOBACCO USE 1-7 YEARS AGO [facility] May 01, 2016 07:26 PM QUIT TOBACCO USE IN PAST YEAR [facility] May 01, 2016 03:11 PM [...] the Encounter. The data comes from all [place] treatment facilities. Date/Time Radiology Report Provider Source Dec 13, 2021 12:57 PM MRI ABDOMEN W/WO CONTRAST: MARYELLEN LONG LUCAS LARES N [id number] -1950 [facility] Exm Date: DEC 13, 2021@12:57 Req Phys: ISATU TODD Loc: OP Unknown/0 12-15-2021@13:20 Img Loc: MRI IMAGING (OOS) Service: [facility] MEDICINE (Case [id number] COMPLETE) MRI ABDOMEN W/WO CONTRAST (M RI Detailed) CPT:52093 Reason for Study: further characterization of a [...] new lyphadenopathy REQUESTING MD: Isatu Todd PAGER: [phone] PHONE: [phone] Weight: 232.2 lb [105.32 kg] (12/12/2021 05:00) [...] will need to arrange for a dedicated intermodal 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 to take him/her home after [...] 15, 2021 Date Verified: DEC 15, 2021 Dedenter E-Sig:/ES/MARYELLEN LONG Report: MRI ABDOMEN W/WO CONTRAST [...] MALIGNANCY Primary Interpreting Staff: Staff AMELIA THOMAS (Dedenter) / Dec 10, 2021 09:[address] ABDOMEN & PELVIS: RADIOLOGY,OUTSIDE [facility] LUCAS MEEK N [id number] -1950 M SERVICE [facility] Exm Date: DEC 10, 2021@09:30 Req Phys: ISATU TODD Loc: 1S [facility]/12-10@10:57 Img Loc: CT SCAN (OOS) Service: [facility] (Case [id number] COMPLETE) CT ABD & PELVIS WITHOUT CONT RAST (CT Detailed) CPT:93446 Reason for Study: 71 yo male with [...] RADIOLOGY [phone] to speak to the appropriate instrument technician helper. Report Status: Verified Date Reported: DEC 10, 2021 Date Verified: DEC 10, 2021 Dedenter E-Sig: Report: EXAM: CT abdomen and pelvis [...] ph nodes. READING PHYSICIAN: Ramone Munoz D.O. [phone] 12/10/2021 10:55 EDT [facility] National Teleradiology Program [phone] (For Medical Practitioner Use Only ) [address] [facility], [facility] [address], [address] [place] [address] Attention Patients / Veterans: If you have ques tions or concerns about these test results, please contact your o rdering provider or primary care team. Primary Diagnostic Code: SIGNIFICANT ABNORMALIT Y, ATTN NEEDED Primary Interpreting Staff: RADIOLOGY,OUTSIDE SERVICE, Staff Physician / Dec 09, 2021 07:34 AM BASW (MODIFIED): JESSIE CHENEY [facility] LUCAS MEEK N [id number] -1950 [facility] Exm Date: DEC 09, 2021@07:34 Req Phys: ISATU TODD Loc: 1S MED/12-09@11:26 Img Loc: XRAY (OOS) Service: [facility] MEDICINE (Case [id number] COMPLETE) BASW (MODIFIED) (RAD Detaile d) CPT:40909 Contrast Media : Barium Reason for Study: dysphagia ?esophageal spasm Clinical History: Report Status: Verified Date Reported: DEC 09, 2021 Date Verified: DEC 09, 2021 Dedenter E-Sig:/ES/JESSIE CHENEY Report: DELISA (MODIFIED) , 12/09/2021 [...] REQUIRED Primary Interpreting Staff: JESSIE CHENEY, RADIOLOGIST (Dedenter) /TLC Dec 06, 2021 12:[address] CHEST (INCLUDES ADRENALS): JESSIE CHENEY [facility] LUCAS MEEK N [id number] -1950 [facility] Exm Date: DEC 06, 2021@12:59 Req Phys: JELANI SÁNCHEZ Loc: [facility] ED DAYS M 1RD (Req'g Loc) Img Loc: CT SCAN (OOS) Service: Unknown (Case [id number] COMPLETE) CT THORAX W/O CONT (CT Detai led) CPT:96579 Reason for Study: Opacification right chest Clinical History: No contrast allergy BUN: 13 (12/06/21 12:00) CREATI: 0.90 (12/06/21 12:00) eGFR 05/16/21 09:43 52 L Weight: 232.6 lb [105.51 kg] (12/06/2021 11:40) BODY MASS INDEX - NO HEIGHTS FOUND Pager number: [phone] STAT orders MUST be called t o RADIOLOGY [phone] to speak to the appropriate instrument technician helper. Indications - Other: Opacification right chest, covid positive, lung cancer histo Report Status: Verified Date Reported: DEC 06, 2021 Date Verified: DEC 06, 2021 Dedenter E-Sig:/ES/JESSIE CHENEY Report: CT THORAX W/O CONT [...] REQUIRED Primary Interpreting Staff: JESSIE CHENEY, RADIOLOGIST (Dedenter) Primary Interpreting Resident: PRINCE CHAMPION, Resident /BR Dec 06, 2021 11:58 AM CHEST SINGLE VIEW: JESSIE CHENEY LUCAS MEEK N [id number] -1950 [facility] Exm Date: DEC 06, 2021@11:58 Req Phys: JELANI SÁNCHEZ Pat Loc: [facility] ED DAYS M 1RD (Req'g Loc) Img Loc: XRAY (OOS) Service: Unknown (Case [id number] COMPLETE) CHEST SINGLE VIEW (RAD Detai led) CPT:91900 Proc Modifiers : PORTABLE EXAM Reason for Study: SOB, home covid test positive Clinical History: Report Status: Verified Date Reported: DEC 06, 2021 Date Verified: DEC 06, 2021 Dedenter E-Sig:/ES/JESSIE CHENEY Report: Exam type: Chest x-ray [...] REQUIRED Primary Interpreting Staff: JESSIE CHENEY, RADIOLOGIST (Dedenter) /TLC Pathology Reports: +/- 30 days of [...] the Encounter. The data comes from all [place] treatment facilities. Date/Time Pathology Report Provider Source Jan 03, 2022 10:28 AM LR SURGICAL PATHOLOGY REPORT: STEFANY MILLER [facility] LOCAL TITLE: LR SURGICAL PATHOLOGY REPORT [facility] STANDARD TITLE: PATHOLOGY REPORT DATE OF NOTE: JAN 03, 2022@10:28:01 ENTRY DATE: JAN 03, 2022@10:28:01 AUTHOR: NIURKA MILLER EXP COSIGNER: URGENCY: STATUS: COMPLETED $APHDR Reporting Lab: [facility] [CLIA# [id number]] [address] [place] [address] - - - - - - [...] automatically d ocumented from SURGERY package case #[id number] Field (#32) PRINCIPAL PRE-OP DIAGNOSIS, (#.72) OTHER [...] automatically d ocumented from SURGERY package case #[id number] Field (#34) PRINCIPAL POST-OP DIAG, (#.74) OTHER [...] Label: Lucas Meek Paperwork: Lucas Meek Cassette: [id number];..;KALYANI;.;405;[id number] Specimen is labeled: ES bx Received in formalin are several pieces of pale boyd and brown tissue, 1.2 x 0.7 cm in aggregate. Submitted entirely in 1 cassette [id number];..;KALYANI;.;405;[id number] SAW 12/15/2021 Microscopic exam: *+* MODIFIED REPORT [...] in rendering the final pathologic diagnosis. [address] [address] CPT: 82375 /emely/ NIURKA Yeung MD Signed Jan 03, 2022@10:28 Performing Laboratory: Surgical Pathology Report Performed By: [facility] [CLIA# [id number]] [address] [place] [address] $FTR - - - - - [...] - - LUCAS MEEK STANDARD FORM 515 ID:[id number] SEX:M :1950 AGE: 71 LOC: [facility] END PCP: Isatu Todd /emely/ NIURKA MILLER Staff Signed: 01/03/2022 10:28 Dec 21, 2021 11:46 AM LR SURGICAL [facility]OLOGY [facility]: LR SURGICAL PATHOLOGY REPORT [facility] STANDARD TITLE: PATHOLOGY REPORT DATE OF NOTE: DEC 21, 2021@11:46:59 ENTRY DATE: DEC 21, 2021@11:46:59 AUTHOR: NIURKA MILLER EXP COSIGNER: URGENCY: STATUS: COMPLETED $APHDR Reporting Lab: [facility] [CLIA# [id number]] [address] [place] [address] - - - - - - [...] automatically d ocumented from SURGERY package case #[id number] Field (#32) PRINCIPAL PRE-OP DIAGNOSIS, (#.72) OTHER [...] automatically d ocumented from SURGERY package case #[id number] Field (#34) PRINCIPAL POST-OP DIAG, (#.74) OTHER [...] Label: Lucas Meek Paperwork: Lucas Meek Cassette: [id number];..;KALYANI;.;405;[id number] Specimen is labeled: ES bx Received in formalin are several pieces of pale boyd and brown tissue, 1.2 x 0.7 cm in aggregate. Submitted entirely in 1 cassette [id number];..;KALYANI;.;405;[id number] SAW 12/15/2021 Microscopic exam: DIAGNOSIS: A. 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 Kendell long. ITARA Coombs was notified on 12/21/21. The attending pathologist who signature mansoor ears on this report has reviewed all diagnostic slides and has edited t he gross and/or microscopic portion of this report in rendering the final pathologic diagnosis. [address] [address] CPT: 02088 /emely/ NIURKA Yeung MD Signed Dec 21, 2021@11:46 Performing Laboratory: Surgical Pathology Report Performed By: [facility] [CLIA# [id number]] [address] [place] [address] $FTR - - - - - [...] - - LUCAS MEEK STANDARD FORM 515 ID:[id number] SEX:M :1950 AGE: 71 LOC: [facility] PCP: Isatu Todd /emely/ NIURKA Yeung MD Signed: 12/21/2021 11:46 Dec 06, 2021 03:30 PM LR MI[facility] Reporting Lab: [facility] [CLIA# [id number]] [address] [place] [address] Accession [UID]: [id number] [[id number]] Receiv ed: Dec 06, 2021@16:14 Collection sample: BLOOD CUL T BOTTLE(NIRMAL/AERO)Collection date: Dec 06, 2021 15:30 Site/Specimen: BLOOD Provider: JELANI SÁNCHEZ Comment on specimen: LAC Test(s) ordered: BLOOD CULTURE ANAEROBI C....... completed: Dec 12, 2021 06:18 * BACTERIOLOGY FINAL REPORT => Dec 12, 2021 06:1 8 TECH CODE: [id number] Bacteriology Remark(s): NO GROWTH IN 5 DAYS =--=--=--=--=--=--=--=--=--=--=--=--=--= --=--=--=--=--=--=--=--=--=--=--=--=-- Performing Laboratory: Bacteriology Report Performed By: [facility] [CLIA# [id number]] [address] [place] [address] Dec 06, 2021 03:30 PM LR MICROBIOLOGY REPORT: [facility] Reporting Lab: [facility] [CLIA# [id number]] [address] [place] [address] Accession [UID]: [id number] [[id number]] Receiv ed: Dec 06, 2021@16:14 Collection sample: BLOOD CUL T BOTTLE(NIRMAL/AERO)Collection date: Dec 06, 2021 15:30 Site/Specimen: BLOOD Provider: JELANI SÁNCHEZ Comment on specimen: LAC Test(s) ordered: BLOOD CULTURE AEROBIC. ........ completed: Dec 12, 2021 06:17 * BACTERIOLOGY FINAL REPORT => Dec 12, 2021 06:1 7 TECH CODE: [id number] Bacteriology Remark(s): NO GROWTH IN 5 DAYS =--=--=--=--=--=--=--=--=--=--=--=--=--= --=--=--=--=--=--=--=--=--=--=--=--=-- Performing Laboratory: Bacteriology Report Performed By: [facility] [CLIA# [id number]] [address] [place] [address]
--- OUTSIDE RECORDS SUMMARY | 2022-01-19 08:52 | XMS_ITS ---
DAILY HOSPITALIZATION DATA [facility] Encounter Summary Created on:December 13, 2021 Patient:LUCAS MEEK Sex:Male :1950 Author Organization [facility] Address [address] [place] [id number] Support Name Relationship Address Phone YUSRA MEEK Unavailable [address] [place] [address] YUSRA MEEK Unavailable [address] [place] [address] CLAY MOSLEY Unavailable Unavailable SJ SANTACRUZ Unavailable [...] MEDICARE MEDICARE PART Jun 18, PART B [id number] DO KALYANI PATIENT (WNR) (M) B 2016 13A 1 UGLAS MEDICARE MEDICARE PART Jun 18, PART A [id number] DO KALYANI PATIENT (WNR) (M) A 2017 VH81 2 LAS MEDICARE MEDICARE PART Jun 18, PART A [id number] KALYANIDO PATIENT (WNR) (M) A 2016 13A 1 UGLAS MEDICARE MEDICARE PART Jun 18, PART B [id number] DO KALYANI PATIENT (WNR) (M) B 2017 VH81 2 UGLAS UNITED MEDICARE MCR(Jun [id number] Luz MEEK PATIENT HEALTHCARE ADVANTAGE NR) 2021 37 0 [facility] (WNR) Selected Encounter This section includes the information on record at [place] for the Encounter. Date/Time Encounter Type Encounter Description Reason Provider Source Dec 13, 2021 05:17 Inpatient Visit DAILY HOSPITALIZATION DATA AM [facility] Encounter Template Text not used [...] AM AMBULATORY - NONE [place] [facility] Jan 06, 2022 02:00 PM [place] [facility] Jan 10, 2022 11:30 AM AMBULATORY - MEDICINE [facility] Jan 24, 2022 08:00 AM [place] [facility] Feb 21, 2022 10:00 AM AMBULATORY - [place] [facility] Mar 21, 2022 10:30 AM AMBULATORY - [...] The data comes from all [place] treatment [facility]. Test Date/Time Test Type Test Details Facility Name October 31, 2021 07:37 AM Consult Order [facility]-EGD [facility] Cons Billing And Quality Technician's Choice November 15, 2021 10:37 AM Consult Order [facility] CARE-PODIATRY Cons Billing And Quality Technician's Choice Dec 06, 2021 12:52 PM [...] [place] OUTPATIENT Cons [facility] Billing And Quality Technician's Choice Jan 15, 2022 10:08 PM Consult Order [facility] CARE-PALLIATIVE CARE Cons Billing And Quality Technician's Choice Lab Results: +/- 30 days of the encounter This section includes the Chemistry and Hematology Lab Results on record with [place] for the patient. Radiology Reports and Pathology Reports are provided separately, in subsequent sections.Lab Results This section contains the Chemistry/Hematology Results that were resulted 30 days before or 30 daysafter the date of the Encounter. Date/Time Source Result Type Result - Unit Interpretation Reference Range Comment Dec 15, 2021 06:43 AM [facility] CBC PROFILE Sp ecimen Type: BLOOD No comment enter ed. Ordering Provid er: ISATU TODD Report Released Date/Time: Dec 10, 2021 07:22 AM Reporting Lab: [facility] [address] [facility] [address] Performing Lab: [facility] [address] [facility] [address] WBC 5.7 4.5-11.0 RBC 4.22 L 4.23-5.66 [...] ABSOLUTE NRBC 0.00 0-0 Dec 15, 2021 [facility] P4 GLU,BUN,CREAT,LYTES,CA Speci men Type: PLASMA 06:43 AM [facility] Comment: Tests performed on Pham Senior Java Web Application Developer (405) SN:[id number] Ordering Provid er: ISATU TODD Report Released Date/Time: Dec 11, 2021 07:42 AM Reporting Lab: [facility] [address] [facility] [address] Performing Lab: [facility] [address] [facility] [address] UREA NITROGEN 9 7-25 SODIUM 137 135-145 POTASSIUM 3.8 3.5-5.0 CHLORIDE 105 100-110 CARBON DIOXIDE 26 20-30 ANION GAP 6 4-16 GLUCOSE 102 H 65-100 CREATININE 0.64 0.5-1.5 CALCIUM 8.1 L 8.5-10.5 eGFR(CKD-EPI 2020) >90.0 >60 Dec 14, 2021 [facility] CYTOGENETIC Specimen Type: ESOPHAGUS 02:59 PM [facility] FISH([facility]) Comment: ~For T est: CYTOGENETIC FISH([facility]) ~FISH HER 2 NUE, FFPE See full report in FlowMetric Image display viewer/tab#LAB-Reference Ordering Provid er: NIURKA MILLER Report Released Date/Time: Dec 21, 2021 12:11 PM Reporting Lab: [facility] [address] [facility] [address] Performing Lab: [facility] CYTOGENETIC FISH([facility]) comment Dec 14, 2021 [place] P4 GLU,BUN,CREAT,LYTES,CA Speci men Type: PLASMA 06:27 AM [facility] Comment: Tests performed on Pham Senior Java Web Application Developer (405) SN:[id number] Ordering Provid er: ISATU TODD Report Released Date/Time: Dec 11, 2021 07:42 AM Reporting Lab: [facility] [address] [facility] [address] Performing Lab: [facility] [address] [facility] [address] UREA NITROGEN 10 7-25 SODIUM 137 135-145 [...] AM Reporting Lab: [facility] [address] [facility] [address] Performing Lab: [facility] [address] [facility] [address] WBC 6.0 4.5-11.0 RBC 4.29 4.23-5.66 HGB [...] ABSOLUTE NRBC 0.00 0-0 Dec 13, 2021 [facility] P4 GLU,BUN,CREAT,LYTES,CA Speci men Type: PLASMA 06:34 AM [facility] Comment: Tests performed on ARKeX (405) SN:[id number] Ordering Provid er: ISATU TODD Report Released Date/Time: Dec 11, 2021 07:42 AM Reporting Lab: [facility] [address] [facility] [address] Per[facility]: [facility] [address] [facility] [address] UREA NITROGEN 12 7-25 SODIUM 136 135-145 [...] AM Reporting Lab: [facility] [address] [facility] [address] Performing Lab: [facility] [address] [facility] [address] WBC 5.6 4.5-11.0 RBC 4.28 4.23-5.66 HGB [...] ABSOLUTE NRBC 0.00 0-0 Dec 12, 2021 [facility] P4 GLU,BUN,CREAT,LYTES,CA Speci men Type: PLASMA 06:21 AM [facility] Comment: Tests performed on ARKeX (405) SN:[id number] Ordering Provid er: ISATU TODD Report Released Date/Time: Dec 11, 2021 07:42 AM Reporting Lab: [facility] [address] [facility] [address] Performing Lab: [facility] [address] [facility] [address] UREA NITROGEN 11 7-25 SODIUM 139 135-145 [...] AM Reporting Lab: [facility] [address] [facility] [address] [facility]: [facility] [address] [facility] [address] WBC 5.5 4.5-11.0 RBC 4.37 4.23-5.66 HGB [...] 0.00 0-0 Dec 12, 2021 06:00 AM [employer] [facility] MAGNESIUM Sp ecimen Type: PLASMA Comment: Testin g Performed on ARKeX (405) SN:[id number] Ordering Provid er: ISATU TODD Report Released Date/Time: Dec 12, 2021 08:24 AM Reporting Lab: [place] [employer] [address] [facility] [address] Performing Lab: [employer] [place] [employer] [address] [facility] [address] MAGNESIUM 1.8 1.6-2.6 Dec 12, 2021 06:00 AM [employer] [facility] PHOSPHORUS Sp ecimen Type: PLASMA Comment: Testin g Performed on ARKeX (405) SN:[id number] Ordering Provid er: ISATU TODD Report Released Date/Time: Dec 12, 2021 08:24 AM Reporting Lab: [place] [employer] [address] [facility] [address] Performing Lab: [place] [employer] [address] [facility] [address] PHOSPHORUS 3.1 2.5-5.0 Dec 11, 2021 06:15 AM [employer] [place] [employer] ELECTROLYTES Sp ecimen Type: PLASMA Comment: Tests performed on ARKeX (405) SN:[id number] Ordering Provid er: ISATU TODD Report Released Date/Time: Dec 10, 2021 07:22 AM Reporting Lab: [place] [employer] [address] [facility] [address] Performing Lab: [place] [employer] [address] [facility] [address] SODIUM 137 135-145 POTASSIUM 4.3 3.5-5.0 CHLORIDE 108 100-110 CARBON DIOXIDE 20 20-30 ANION GAP 9 4-16 Dec 11, 2021 06:15 AM [place] [facility] [employer] CBC PROFILE Sp ecimen Type: BLOOD Comment: Result s checked Ordering Provid er: ISATU TODD Report Released Date/Time: Dec 10, 2021 07:22 AM Reporting Lab: [place] [facility] [facility] [address] [facility] [address] Performing Lab: [place] [facility] [address] [facility] [address] WBC 5.8 4.5-11.0 RBC 4.37 4.23-5.66 HGB [...] 0.00 0-0 Dec 11, 2021 06:00 AM [facility] PHOSPHORUS Sp ecimen Type: PLASMA Comment: Tests performed on ARKeX (692) SN:[id number] Results checked Ordering Provid er: ISATU TODD Report Released Date/Time: Dec 11, 2021 07:44 AM Reporting Lab: [facility] [facility] [address] [facility] [address] Performing Lab: [place] [facility] [address] [facility] [address] PHOSPHORUS 3.0 2.5-5.0 Dec 10, 2021 08:05 AM [place] [facility] MAGNESIUM Sp ecimen Type: PLASMA Comment: [place] [id number] on Dec 10, 2021@08:31 Tests performed on ARKeX (405) SN:[id number] Ordering Provid er: ISATU TODD Report Released Date/Time: Dec 10, 2021 07:22 AM Reporting Lab: [place] [facility] [address] [facility] [place] [address] Performing Lab: [place] [facility] [address] [facility] [place] [address] MAGNESIUM 1.7 1.6-2.6 Dec 10, 2021 08:05 AM [place] [facility] PHOSPHORUS Sp ecimen Type: PLASMA Comment: [place] [id number] on Dec 10, 2021@08:31 Tests performed on ARKeX (405) SN:[id number] Ordering Provid er: ISATU TODD Report Released Date/Time: Dec 10, 2021 07:22 AM Reporting Lab: [place] [facility] [address] [facility] [place] [address] Performing Lab: [place] [facility] [address] [facility] [place] [address] PHOSPHORUS 1.8 L 2.5-5.0 Dec 10, 2021 08:05 AM [place] UREA NITROGEN Specimen Type: PLASMA [facility] Comment: [place] [id number] on Dec 10, 2021@08:31 Tests performed on ARKeX (405) SN:[id number] Ordering Provid er: ISATU TODD Report Released Date/Time: Dec 10, 2021 07:22 AM Reporting Lab: [place] [facility] [address] [facility] [place] [address] Performing Lab: [place] [facility] [address] [facility] [place] [address] UREA NITROGEN 8 7-25 Dec 10, 2021 08:05 AM [place] [facility] ELECTROLYTES Sp ecimen Type: PLASMA Comment: [place] [id number] on Dec 10, 2021@08:31 Tests performed on ARKeX (405) SN:[id number] Ordering Provid er: ISATU TODD Report Released Date/Time: Dec 10, 2021 07:22 AM Reporting Lab: [place] [facility] [address] [facility] [address] Performing Lab: [place] [facility] [address] [facility] [address] SODIUM 139 135-145 POTASSIUM 3.7 3.5-5.0 CHLORIDE 107 100-110 CARBON DIOXIDE 24 20-30 ANION GAP 8 4-16 Dec 10, 2021 08:05 AM [place] [facility] GLUCOSE Sp ecimen Type: PLASMA Comment: [place] [id number] on Dec 10, 2021@08:31 Tests performed on ARKeX (405) SN:[id number] Ordering Provid er: ISATU TODD Report Released Date/Time: Dec 10, 2021 07:22 AM Reporting Lab: [place] [facility] [address] [facility] [address] Performing Lab: [place] [facility] [address] [facility] [address] GLUCOSE 144 H 65-100 Dec 10, 2021 08:05 AM [place] [facility] CALCIUM Sp ecimen Type: PLASMA Comment: [place] [id number] on Dec 10, 2021@08:31 Tests performed on ARKeX (405) SN:[id number] Ordering Provid er: ISATU TODD Report Released Date/Time: Dec 10, 2021 07:22 AM Reporting Lab: [place] [facility] [address] [facility] [address] Performing Lab: [place] [facility] [address] [facility] [address] CALCIUM 8.3 L 8.5-10.5 Dec 10, 2021 08:05 AM [place] [facility] CBC PROFILE Sp ecimen Type: BLOOD No comment enter ed. Ordering Provid er: ISATU TODD Report Released Date/Time: Dec 10, 2021 07:22 AM Reporting Lab: [place] [facility] [address] [facility] [address] Performing Lab: [place] [facility] [address] [facility] [address] WBC 7.0 4.5-11.0 RBC 4.54 4.23-5.66 HGB [...] PLASMA AM [facility] PANEL [place]: [place] [id number] on Dec 10, 2021@08:31 Tests performed on ARKeX (405) SN:[id number] Ordering Provid er: ISATU TODD Report Released Date/Time: Dec 10, 2021 07:22 AM Reporting Lab: [facility] [address] [facility] [address] Performing Lab: [facility] [address] [facility] [address] CREATININE 0.78 0.5-1.5 eGFR(CKD-EPI 2020) >90.0 >60 Dec 09, 2021 06:46 AM [place] [facility] MAGNESIUM Sp ecimen Type: PLASMA Comment: Tests performed on ARKeX (405) SN:[id number] Ordering Provid er: ISATU TODD Report Released Date/Time: Dec 08, 2021 10:23 AM Reporting Lab: [place] [facility] [address] [facility] [address] Performing Lab: [place] [facility] [address] [facility] [address] MAGNESIUM 1.6 1.6-2.6 Dec 09, 2021 [facility] P4 GLU,BUN,CREAT,LYTES,CA Speci men Type: PLASMA 06:46 AM [facility] Comment: Tests performed on ARKeX (405) SN:[id number] Ordering Provid er: ISATU TODD Report Released Date/Time: Dec 08, 2021 05:00 PM Reporting Lab: [facility] [address] [facility] [address] Performing Lab: [facility] [address] [facility] [address] UREA NITROGEN 6 L 7-25 SODIUM 134 [...] PM Reporting Lab: [facility] [address] [facility] [address] Performing Lab: [facility] [address] [facility] [address] WBC 7.1 4.5-11.0 RBC 4.40 4.23-5.66 HGB [...] 0.00 0-0 Dec 08, 2021 06:39 AM [place] [employer] [facility] MAGNESIUM Sp ecimen Type: PLASMA Comment: Testin g Performed on ARKeX (405) SN:[id number] Ordering Provid er: ISATU TODD Report Released Date/Time: Dec 07, 2021 10:32 AM Reporting Lab: [facility] [address] [facility] [address] Performing Lab: [facility] [address] [facility] [address] MAGNESIUM 1.5 L 1.6-2.6 Dec 08, 2021 [place] P4 GLU,BUN,CREAT,LYTES,CA Speci men Type: PLASMA 06:39 AM [facility] Comment: Testin g Performed on ARKeX (405) SN:[id number] Ordering Provid er: ISATU TODD Report Released Date/Time: Dec 07, 2021 10:32 AM Reporting Lab: [place] [facility] [address] [facility] [address] Performing Lab: [facility] [address] [facility] [address] UREA NITROGEN 6 L 7-25 SODIUM 136 135-145 POTASSIUM 3.3 L 3.5-5.0 CHLORIDE 104 100-110 CARBON DIOXIDE 22 20-30 ANION GAP 10 4-16 GLUCOSE 133 H 65-100 CREATININE 0.76 0.5-1.5 CALCIUM 8.4 L 8.5-10.5 eGFR(CKD-EPI 2020) >90.0 >60 Dec 08, 2021 06:39 AM [place] [employer] [facility] CBC PROFILE Sp ecimen Type: BLOOD No comment enter ed. Ordering Provid er: ISATU TODD Report Released Date/Time: Dec 07, 2021 10:32 AM Reporting Lab: [facility] [address] [facility] [address] Performing Lab: [facility] [address] [facility] [address] WBC 8.4 4.5-11.0 RBC 4.75 4.23-5.66 HGB [...] ABSOLUTE NRBC 0.00 0-0 Dec 07, 2021 [facility] P4 GLU,BUN,CREAT,LYTES,CA Speci men Type: PLASMA 06:42 AM [facility] Comment: Tests performed on ARKeX (405 SN:[id number] Ordering Provid er: PORFIRIO WALTERS Report Released Date/Time: Dec 06, 2021 06:57 PM Reporting Lab: [facility] [address] [facility] [address] Performing Lab: [facility] [address] [facility] [address] UREA NITROGEN 9 7-25 SODIUM 135 135-145 POTASSIUM 3.5 3.5-5.0 CHLORIDE 103 100-110 CARBON DIOXIDE 22 20-30 ANION GAP 10 4-16 GLUCOSE 92 65-100 CREATININE 0.73 0.5-1.5 CALCIUM 8.0 L 8.5-10.5 eGFR(CKD-EPI 2020) >90.0 >60 Dec 07, 2021 06:42 AM [facility] [facility] CBC PROFILE Specimen Type: BLOOD [facility] No comment enter ed. Ordering Provid er: PORFIRIO WALTERS Report Released Date/Time: Dec 06, 2021 06:57 PM [facility]: [facility] [address] [facility] [address] Performing Lab: [facility] [address] [facility] [address] WBC 5.7 4.5-11.0 RBC 4.15 L 4.23-5.66 [...] 0-0 Dec 07, 2021 06:42 [place] [facility] LIVER PROFILE Specimen Typ e: PLASMA AM [facility] Comment: Tests performed on ARKeX 405 [id number] Ordering Provid er: PORFIRIO WALTERS Report Released Date/Time: Dec 06, 2021 06:57 PM [facility] [address] [facility] [address] Performing Lab: [place] [facility] [address] [facility] [address] PROTEIN, TOTAL 5.7 L 6.0-8.5 ALBUMIN 2.4 L 3.2-5.0 BILIRUBIN, TOTAL 0.4 0.2-1.2 ALKALINE PHOSPHATASE 109 40-150 ALT(SGPT) 10 7-52 AST(SGOT) 15 5-34 FIB-4 SCORE 1.92 <2.67 Dec 07, [address] [place] [address] (ABS & Specimen Type: BLOOD 06:00 AM [facility] %) AUTOMATED Comment: Tests performed on ARKeX (405) SN:[id number] Ordering Provid er: ISATU TODD Report Released Date/Time: Dec 07, 2021 10:28 AM Reporting Lab: [place] [facility] [address] [facility] [address] Performing Lab: [place] [facility] [address] [facility] [address] RETICULOCYTES (%) AUTOMATED 1.23 0. 6-2.0 RETICULOCYTES (ABS) AUTOMATED 0.052 0.030-0.090 Dec 06, 2021 09:45 [place] MRSA SURVL NARES Specimen Ty pe: NARES PM [facility] DNA No comment enter ed. Ordering Provid er: ALVARO VARGHESE Report Released Date/Time: Dec 07, 2021 02:20 AM Reporting Lab: [place] [facility] [address] [facility] [address] Performing Lab: [place] [facility] [address] [facility] [address] MRSA SURVL NARES DNA NEGATIVE NEGATIVE Dec 06, 2021 06:00 [place] URINALYSIS W/REFLEX TO Speci men Type: URINE PM [facility] CULTURE No comment enter ed. Ordering Provid er: JELANI SÁNCHEZ Report Released Date/Time: Dec 06, 2021 11:57 AM Reporting Lab: [place] [facility] [address] [facility] [address] Performing Lab: [place] [facility] [address] [facility] [address] URINE COLOR Arlin YELLOW SPECIFIC GRAVITY 1.029 [...] 21, RIVER VARIANT Comment: https://www.cdc.gov/coronavirus/2019-ncov/cases-updates/variant- surveillance/variant-info.html The [employer] SARS CoV 2 [employer] Assay-GX is a next-generation sequencing (NGS) assa 2021 [facility] SEQUENCING y that determine s the complete genome sequence of the SARS-CoV-2 virus. The assay contains variant-tolerant primers to broaden and improve the coverage for variant detection and increase the sensitivity 12:00 [facility] PNL(WH) of the panel to enable detection from lower viral titer samples. The assay is run on the XMLAW Sequencer, which performs automated library preparation, sequencing, analysis, and reporting. PM The sequence an alysis includes determination of viral phylogenetic lineage by comparison to the reference strain Wuhan-Hu-1, GenBank: [id number]. Sequence determination may not be possible owing [...] Dec 06, 2021 01:13 PM Reporting Lab: [facility] [address] [facility] [address] Performing Lab: [facility] [address] [facility] [address] SARS-CoV-2 CLADE() 22C (OMICRON) SARS-CoV-2 LINEAGE() BA.2.12.1 Dec 06, 2021 12:00 [facility] COVID-19 AG SCREEN Specimen Type: NASAL CAVITY PM [facility] PANEL BINAX(405) Comment: Testi ng Performed By: Mike Briscoe Ordering Provid er: JELANI SÁNCHEZ Report Released Date/Time: Dec 08, 2021 08:23 AM Reporting Lab: [facility] [address] [facility] [address] Performing Lab: [facility] [address] [facility] [address] COVID-19 AG SCRN(wrj BINAX) POSITIVE HH NE G Dec 06, 2021 12:00 PM [facility] LIVER PROFILE Sp ecimen Type: PLASMA Comment: Testin g Performed on Pham Senior Java Web Application Developer (405) SN:[id number] Ordering Provid er: JELANI SÁNCHEZ Report Released Date/Time: Dec 06, 2021 11:57 AM Reporting Lab: [facility] [address] [facility] [address] Performing Lab: [facility] [address] [facility] [address] PROTEIN, TOTAL 6.6 6.0-8.5 ALBUMIN 2.8 L 3.2-5.0 BILIRUBIN, TOTAL 0.6 0.2-1.2 ALKALINE PHOSPHATASE 134 40-150 ALT(SGPT) 13 7-52 AST(SGOT) 18 5-34 FIB-4 SCORE 1.94 <2.67 Dec 06, 2021 [facility] P[facility] GLU,BUN,CREAT,LYTES,CA Speci men Type: PLASMA 12:00 PM [facility] Comment: Testin g Performed on Pham Senior Java Web Application Developer (405) SN:[id number] Ordering Provid er: JELANI SÁNCHEZ Report Released Date/Time: Dec 06, 2021 11:57 AM Reporting Lab: [place] [facility] [address] [facility] [address] Performing Lab: [place] [address] [facility] [address] UREA NITROGEN 13 7-25 SODIUM 138 135-145 POTASSIUM 3.8 3.5-5.0 CHLORIDE 103 100-110 CARBON DIOXIDE 23 20-30 ANION GAP 12 4-16 GLUCOSE 105 H 65-100 CREATININE 0.90 0.5-1.5 CALCIUM 8.7 8.5-10.5 eGFR(CKD-EPI 2020) >90.0 >60 Dec 06, 2021 12:00 PM [facility] BNP(P) Sp ecimen Type: PLASMA Comment: Tests performed on Pham Senior Java Web Application Developer (405) SN:[id number] Ordering Provid er: JELANI SÁNCHEZ Report Released Date/Time: Dec 06, 2021 11:57 AM Reporting Lab: [facility] [address] [facility] [address] Performing Lab: [facility] [address] [facility] [address] BNP(P) 224.8 H 10-100 Dec 06, 2021 12:00 PM [facility] TROPONIN II Sp ecimen Type: PLASMA Comment: Tests performed on Pham Senior Java Web Application Developer (405) SN:[id number] Ordering Provid er: JELANI SÁNCHEZ Report Released Date/Time: Dec 06, 2021 11:57 AM Reporting Lab: [place] [facility] [facility] [address] [facility] [address] Performing Lab: [facility] [address] [facility] [address] TROPONIN II 0.03 0.00-0.29 Dec 06, 2021 [facility] COVID-[facility]+FLU/RSV DIAGNOSTIC Spe cimen Type: NASOPHARYNX 12:00 PM [facility] PANEL(405) Comment: Tests performed on [employer] Genexpert (405) Critical results called to and read back by: ALESHIA WILKINSON RN 12/06/21 @ 1312 Ordering Provid er: JELANI SÁNCHEZ Report Released Date/Time: Dec 06, 2021 11:57 AM Reporting Lab[facility] [address] [facility] [address] Performing Lab: [place] [facility] [address] [address] FLU A(PCR) NEGATIVE NEGATIVE FLU B(PCR) NEGATIVE NEGATIVE RSV(PCR) NEGATIVE NEGATIVE COVID-19([id number]) DETECTED HH NO T DETECTED Dec 06, 2021 12:00 [facility] Sp ecimen Type: BLOOD No comment enter ed. Ordering Provid er: JELANI SÁNCHEZ Report Released Date/Time: Dec 06, 2021 11:57 AM Reporting Lab: [facility] [address] [address] Performing Lab: [facility] [address] [address] WBC 7.2 4.5-11.0 RBC 4.86 4.23-5.66 HGB [...] 09:20 /min mm[Hg] RIVER PM [facility] Dec 13, 97.9 F 82 108/62 20 /min 96 % 2021 03:27 /min mm[Hg] RIVER PM T [facility] Dec 13, 0 WHITE 2021 02:44 RIVER PM T [facility] Dec 13, 0 WHITE 2021 08:15 RIVER AM [facility] Dec 13, 0 WHITE 2021 05:18 RIVER AM [facility] Social [...] place. Date/Time Smoking Status/Tobacco Use Comment [facility] Apr 01, 2020 01:16 PM QUIT TOBACCO [...] IN PAST YEAR [facility] [place] [facility] Mar 16, 2016 12:50 PM V1-PT DECLINES [...] W/WO CONTRAST: MARYELLEN LONG LUCAS LARES N [id number] -[id number] [facility] Exm Date: DEC 13, 2021@12:57 Req Phys: ISATU TODD Loc: OP Unknown/0 12-15-2021@13:20 Img Loc: MRI IMAGING (OOS) Service: ZZGENERAL MEDICINE (Case [id number] COMPLETE) MRI ABDOMEN W/WO CONTRAST (M RI Detailed) CPT:16091 Reason for Study: further characterization of a [...] new lyphadenopathy REQUESTING MD: Isatu Todd PAGER: [phone] PHONE: [phone] Weight: 232.2 lb [105.32 kg] (12/12/2021 05:00) [...] patient will need to arrange for a helper driver to take him/her home after the [...] 15, 2021 Date Verified: DEC 15, 2021 Relations Director E-Sig:/ES/MARYELLEN LONG Report: MRI ABDOMEN W/WO [...] MALIGNANCY Primary Interpreting Staff: Staff AMELIA THOMAS (Relations Director) / Dec 10, 2021 09:[address] ABDOMEN & PELVIS: [facility] LUCAS MEEK N [id number] -1950 M [facility] Ex Date: DEC 10, 2021@09:30 Req Phys: ISATU TODD Loc: 1S MED/12-10@10:57 Img Loc: CT SCAN (OOS) Service: [facility] MEDICINE (Case [id number] COMPLETE) CT ABD & PELVIS WITHOUT CONT RAST (CT Detailed) CPT:17135 Reason for Study: 71 yo male with [...] INDEX - NO HEIGHTS FOUND Pager number: [phone] STAT orders MUST be call ed to RADIOLOGY [phone] to speak to the appropriate technician test systems. Report Status: Verified Date Reported: DEC 10, 2021 Date Verified: DEC 10, 2021 Relations Director E-Sig: Report: EXAM: CT abdomen and [...] ph nodes. READING PHYSICIAN: Ramone Munoz D.O. [phone] 12/10/2021 10:55 EDT [facility] National Teleradiology Program [phone] (For Medical Practitioner Use Only ) [address], [facility] [address] [place] [address] Attention Patients / Veterans: If you have ques tions or concerns about these test results, please contact your o rdering provider or primary care team. Primary Diagnostic Code: SIGNIFICANT ABNORMALIT Y, ATTN NEEDED Primary Interpreting Staff: RADIOLOGY,OUTSIDE SERVICE, Staff Physician / Dec 09, 2021 07:34 AM BASW (MODIFIED): JESSIE CHENEY TARA ER JCT LUCAS MEEK N [id number] -1950 M [facility] Exm Date: DEC 09, 2021@07:34 Req Phys: ISATU TODD Josseline Loc: 1S MED/12-09@11:26 Img Loc: XRAY (OOS) Service: [facility]ICINE (Case [id number] COMPLETE) BASW (MODIFIED) (RAD Detaile d) CPT:32733 Contrast Media : Barium Reason for Study: dysphagia ?esophageal spasm Clinical History: Report Status: Verified Date Reported: DEC 09, 2021 Date Verified: DEC 09, 2021 Relations Director E-Sig:/ES/JESSIE CHENEY Report: BASW (MODIFIED) , [...] REQUIRED Primary Interpreting Staff: JESSIE CHENEY, RADIOLOGIST (Relations Director) /TLC Dec 06, 2021 12:[address] CHEST (INCLUDES ADRENALS): [facility] LUCAS MEEK N [id number] -1950 M [facility] Exm Date: DEC 06, 2021@12:59 Req Phys: GONZALO,JELANI J Pat Loc: [facility] ED DAYS M 1RD (Req'g Loc) Img Loc: CT SCAN (OOS) Service: Unknown (Case [id number] COMPLETE) CT THORAX W/O CONT (CT Detai led) CPT:00110 Reason for Study: Opacification right chest Clinical History: No contrast allergy BUN: 13 (12/06/21 12:00) CREATI: 0.90 (12/06/21 12:00) eGFR 05/16/21 09:43 52 L Weight: 232.6 lb [105.51 kg] (12/06/2021 11:40) BODY MASS INDEX - NO HEIGHTS FOUND Pager number: [phone] STAT orders MUST be called t o RADIOLOGY [phone] to speak to the appropriate technician test systems. Indications - Other: Opacification right chest, covid positive, lung cancer histo Report Status: Verified Date Reported: DEC 06, 2021 Date Verified: DEC 06, 2021 Relations Director E-Sig:/ES/JESSIE CHENEY Report: CT THORAX W/O [...] REQUIRED Primary Interpreting Staff: JESSIE CHENEY, RADIOLOGIST (Relations Director) Primary Interpreting Resident: PRINCE CHAMPION, Resident /BR Dec 06, 2021 11:58 AM CHEST SINGLE VIEW: JESSIE CHENEY DOUGLAS N [id number] -1950 M [facility] Exm Date: DEC 06, 2021@11:58 Req Phys: JELANI SÁNCHEZ Pat Loc: [facility] ED DAYS M 1RD (Req'g Loc) Img Loc: XRAY (OOS) Service: Unknown (Case [id number] COMPLETE) CHEST SINGLE VIEW (RAD Detai led) CPT:56902 Proc Modifiers : PORTABLE EXAM Reason for Study: SOB, home covid test positive Clinical History: Report Status: Verified Date Reported: DEC 06, 2021 Date Verified: DEC 06, 2021 Relations Director E-Sig:/ES/JESSIE CHENEY Report: Exam type: Chest [...] REQUIRED Primary Interpreting Staff: JESSIE CHENEY, RADIOLOGIST (Relations Director) /TLC Pathology Reports: +/- 30 days [...] [facility] [CLIA# [id number]] [address] [place] [address] - - - - - - [...] automatically d ocumented from SURGERY package case #[id number] Field (#32) PRINCIPAL PRE-OP DIAGNOSIS, (#.72) OTHER [...] automatically d ocumented from SURGERY package case #[id number] Field (#34) PRINCIPAL POST-OP DIAG, (#.74) OTHER [...] Label: Lucas Meek Paperwork: Lucas Meek Cassette: [id number];..;KALYANI;.;405;[id number] Specimen is labeled: ES bx Received in formalin are several pieces of pale boyd and brown tissue, 1.2 x 0.7 cm in aggregate. Submitted entirely in 1 cassette [id number];..;KALYANI;.;405;[id number] SAW 12/15/2021 Microscopic exam: *+* MODIFIED REPORT *+* (Last modified: JAN 03, 2022@09:30:20 typed by NIURKA WADDELL) DIAGNOSIS: A. 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 Kendell long. TIARA Coombs was notified on 12/21/21. Modified on 01/03/22 to include report from [facility] stating that tumor is NEGATIVE for her2/ matheus amplification. The attending pathologist who signature mansoor ears on this report has reviewed all diagnostic slides and has edited t he gross and/or microscopic portion of this report in rendering the final pathologic diagnosis. [address] [address] CPT: 29404 /emely/ NIURKA Yeung MD Signed Jan 03, 2022@10:28 Performing Laboratory: Surgical Pathology Report Performed By: [facility] [CLIA# [id number]] [address] [place] [address] $FTR - - - - - [...] - - LUCAS MEEK STANDARD FORM 515 ID:[id number] SEX:M :1950 AGE: 71 LOC: [facility] END PCP: Isatu Todd /emely/ NIURKA MILLER Staff Signed: 01/03/2022 10:28 Dec 21, 2021 11:46 AM LR SURGICAL PATHOLOGY REPORT: STEFANY MILLER [facility] LOCAL TITLE: LR SURGICAL PATHOLOGY REPORT [facility] STANDARD TITLE: PATHOLOGY REPORT DATE OF NOTE: DEC 21, 2021@11:46:59 ENTRY DATE: DEC 21, 2021@11:46:59 AUTHOR: NIURKA MILLER EXP COSIGNER: URGENCY: STATUS: COMPLETED $APHDR Reporting Lab: [facility] [CLIA# [id number]] [address] [place] [address] - - - - - - [...] automatically d ocumented from SURGERY package case #[id number] Field (#32) PRINCIPAL PRE-OP DIAGNOSIS, (#.72) OTHER [...] automatically d ocumented from SURGERY package case #[id number] Field (#34) PRINCIPAL POST-OP DIAG, (#.74) OTHER [...] Label: Lucas Meek Paperwork: Lucas Meek Cassette: [id number];..;KALYANI;.;405;[id number] Specimen is labeled: ES bx Received in formalin are several pieces of pale boyd and brown tissue, 1.2 x 0.7 cm in aggregate. Submitted entirely in 1 cassette [id number];..;KALYANI;.;405;[id number] SAW 12/15/2021 Microscopic exam: DIAGNOSIS: A. 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 Kendell long. TIARA Coombs was notified on 12/21/21. The attending pathologist who signature mansoor ears on this report has reviewed all diagnostic slides and has edited t he gross and/or microscopic portion of this report in rendering the final pathologic diagnosis. [address] [address] CPT: 14632 /emely/ NIURKA Yeung MD Signed Dec 21, 2021@11:46 Performing Laboratory: Surgical Pathology Report Performed By: [facility] [CLIA# [id number]] [address] [place] [address] $FTR - - - - - [...] - - LUCAS MEEK STANDARD FORM 515 ID:[id number] SEX:M :1950 AGE: 71 LOC: [facility] PCP: Isatu Todd /charmaine Yeung MD Signed: 12/21/2021 11:46 Dec 06, 2021 03:30 PM LR MICROBIOLOGY REPORT: [facility] Reporting Lab: [facility] [CLIA# [id number]] [address] [place] [address] Accession [UID]: [id number] [[id number]] Receiv ed: Dec 06, 2021@16:14 Collection sample: BLOOD CUL T BOTTLE(NIRMAL/AERO)Collection date: Dec 06, 2021 15:30 Site/Specimen: BLOOD Provider: JELANI SÁNCHEZ Comment on specimen: LAC Test(s) ordered: BLOOD CULTURE ANAEROBI C....... completed: Dec 12, 2021 06:18 * BACTERIOLOGY FINAL REPORT => Dec 12, 2021 06:1 8 TECH CODE: [id number] Bacteriology Remark(s): NO GROWTH IN 5 DAYS =--=--=--=--=--=--=--=--=--=--=--=--=--= --=--=--=--=--=--=--=--=--=--=--=--=-- Performing Laboratory: Bacteriology Report Performed By: [facility] [CLIA# [id number]] [address] [place] [address] Dec 06, 2021 03:30 PM LR MICROBIOLOGY REPORT: [facility] Reporting Lab: [facility] [CLIA# [id number]] [address] [place] [address] Accession [UID]: [id number] [[id number]] Receiv ed: Dec 06, 2021@16:14 Collection sample: BLOOD CUL T BOTTLE(NIRMAL/AERO)Collection date: Dec 06, 2021 15:30 Site/Specimen: BLOOD Provider: JELANI SÁNCHEZ Comment on specimen: LAC Test(s) ordered: BLOOD CULTURE AEROBIC. ........ completed: Dec 12, 2021 06:17 * BACTERIOLOGY FINAL REPORT => Dec 12, 2021 06:1 7 TECH CODE: [id number] Bacteriology Remark(s): NO GROWTH IN 5 DAYS =--=--=--=--=--=--=--=--=--=--=--=--=--= --=--=--=--=--=--=--=--=--=--=--=--=-- Performing Laboratory: Bacteriology Report Performed By: [facility] [CLIA# [id number]] [address] [place] [address]
--- OUTSIDE RECORDS SUMMARY | 2022-01-19 08:53 | XMS_ITS ---
DAILY HOSPITALIZATION DATA [facility] Encounter Summary Created on:December 14, 2021 Patient:LUCAS MEEK Sex:Male :1950 Author Organization [facility] Address [address] [place] [id number] Support Name Relationship Address Phone YUSRA MEEK Unavailable [address] [place] [address] YUSRA MEEK Unavailable [address] [place] [facility] [place] [address] CLAY MOSLEY Unavailable Unavailable SJ SANTACRUZ Unavailable [...] MEDICARE MEDICARE PART Jun 18, PART A [id number] DO KALYANI PATIENT (WNR) (M) A 2016 13A 1 UGLAS MEDICARE MEDICARE PART Jun 18, PART B [id number] DO KALYANI PATIENT (WNR) (M) B 2016 13A 1 [place]AS MEDICARE MEDICARE PART Jun 18, PART A [id number] KALYANIDO PATIENT (WNR) (M) A 2017 VH81 2 UGLAS MEDICARE MEDICARE PART Jun 18, PART B [id number] DO KALYANI PATIENT (WNR) (M) B 2017 VH81 2 U[place]AS UNITED MEDICARE MCR(Jun 18 [id number] Luz MEEK PATIENT HEALTHCARE ADVANTAGE NR) 2021 37 0 [facility] (WNR) Selected Encounter This section includes the information on record at [place] for the Encounter. Date/Time Encounter Type Encounter Description Reason Provider Source Dec 14, 2021 04:07 Inpatient Visit DAILY HOSPITALIZATION DATA AM [facility] Encounter Template Text not used by [place] Plan of Treatment: Future Appointments (+ 6 [...] [place] [facility] Jan 10, 2022 11:30 AM AMBULATORY - MEDICINE [facility] Jan 24, 2022 08:00 AM [place] [facility] Feb 21, 2022 10:00 AM AMBUL[place]ORY [place] [facility] Mar 21, 2022 10:30 AM AMBULATORY [...] the Encounter. The data comes from all [place] [facility]. Test Date/Time Test Type Test Details Facility Name October 31, 2021 07:37 AM Consult Order [facility] Cons [facility] November 15, 2021 10:37 AM Consult Order [facility] [place] CARE-PODIATRY Cons [facility] Dec 06, 2021 12:52 PM Pharmacy [place] Infusion Order [facility] Dec 06, 2021 03:24 PM [place]acy [place] Order [facility] Dec 06, 2021 03:40 PM [place]acy [place] Order [facility] Dec 15, 2021 08:41 AM Consult Order SPEECH PATHOLOGY [place] OUTPATIENT Cons [facility] Jan 15, 2022 10:08 PM Consult Order [facility] [place] [place] CARE-PALLIATIVE CARE Cons [facility] Lab Results: +/- 30 days of [...] Reference Range Comment Dec 15, 2021 [place] P4 GLU,BUN,CREAT,LYTES,CA Speci men Type: PLASMA 06:43 AM [facility] Comment: Tests performed on boo-box (405) SN:[id number] Ordering Provid er: ISATU TODD Report Released Date/Time: Dec 11, 2021 07:42 AM Reporting Lab: [facility] T [facility] [address] [facility] [address] Performing Lab: [facility] [address] [facility] [address] UREA NITROGEN 9 7-25 SODIUM 137 135-145 POTASSIUM 3.8 3.5-5.0 CHLORIDE 105 100-110 CARBON DIOXIDE 26 20-30 ANION GAP 6 4-16 GLUCOSE 102 H 65-100 CREATININE 0.64 0.5-1.5 CALCIUM 8.1 L 8.5-10.5 eGFR(CKD-EPI 2020) >90.0 >60 Dec 15, 2021 06:43 AM [facility] CBC PROFILE Sp ecimen Type: BLOOD No comment enter ed. Ordering Provid er: ISATU TODD Report Released Date/Time: Dec 10, 2021 07:22 AM Reporting Lab: [facility] [address] [facility] [address] Performing Lab: [facility] [address] [facility] [address] WBC 5.7 4.5-11.0 RBC 4.22 L 4.23-5.66 [...] Specimen Type: ESOPHAGUS 02:59 PM [facility] Comment: ~For T est: CYTOGENETIC FISH([facility] [place]) ~FISH HER 2 NUE, FFPE See full report in [employer] Image display viewer/tab#LAB-Reference Ordering Provid er: NIURKA MILLER Report Released Date/Time: Dec 21, 2021 12:11 PM Reporting Lab: [facility] [address] [facility] [address] Performing Lab: [facility] CYTOGENETIC FISH([facility] [place]) comment Dec 14, 2021 [facility] P4 GLU,BUN,CREAT,LYTES,CA Speci men Type: PLASMA 06:27 AM [facility] Comment: Tests performed on boo-box (405) SN:[id number] Ordering Provid er: ISATU TODD Report Released Date/Time: Dec 11, 2021 07:42 AM Reporting Lab: [facility] [address] [facility] [address] Performing Lab: [facility] [address] [facility] [address] UREA NITROGEN 10 7-25 SODIUM 137 135-145 POTASSIUM 4.0 3.5-5.0 CHLORIDE 104 100-110 CARBON DIOXIDE 25 20-30 ANION GAP 8 4-16 GLUCOSE 99 65-100 CREATININE 0.67 0.5-1.5 CALCIUM 8.2 L 8.5-10.5 eGFR(CKD-EPI 2020) >90.0 >60 Dec 14, 2021 06:27 AM [facility] CBC PROFILE Sp ecimen Type: BLOOD No comment enter ed. Ordering Provid er: ISATU TODD Report Released Date/Time: Dec 10, 2021 07:22 AM Reporting [facility]: [facility] [address] [facility] [address] Performing Lab: [facility] [address] [facility] [address] WBC 6.0 4.5-11.0 RBC 4.29 4.23-5.66 HGB [...] 0.00 0-0 Dec 13, 2021 06:34 AM [facility] CBC PROFILE Sp ecimen Type: BLOOD No comment enter ed. Ordering Provid er: ISATU TODD Report Released Date/Time: Dec 10, 2021 07:22 AM Reporting Lab: [facility] [address] [facility] [address] Performing Lab: [facility] [address] [facility] [address] WBC 5.6 4.5-11.0 RBC 4.28 4.23-5.66 HGB [...] Speci men Type: PLASMA 06:34 AM [facility] Comment: Tests performed on boo-box (405) SN:[id number] Ordering Provid er: IASTU TODD Report Released Date/Time: Dec 11, 2021 07:42 AM Reporting Lab: [facility] [address] [facility] [address] Performing Lab: [facility] [address] [facility] [address] UREA NITROGEN 12 7-25 SODIUM 136 135-145 POTASSIUM 3.9 3.5-5.0 CHLORIDE 105 100-110 CARBON DIOXIDE 24 20-30 ANION GAP 7 4-16 GLUCOSE 102 H 65-100 CREATININE 0.66 0.5-1.5 CALCIUM 8.3 L 8.5-10.5 eGFR(CKD-EPI 2020) >90.0 >60 Dec 12, 2021 [facility] P4 GLU,BUN,CREAT,LYTES,CA Speci men Type: PLASMA 06:21 AM [facility] Comment: Tests performed on boo-box (405) SN:[id number] Ordering Provid er: ISATU TODD Report Released Date/Time: Dec 11, 2021 07:42 AM Reporting Lab: [facility] [address] [facility] [address] Performing Lab: [facility] [address] [facility] [address] UREA NITROGEN 11 7-25 SODIUM 139 135-145 POTASSIUM 4.1 3.5-5.0 CHLORIDE 107 100-110 CARBON DIOXIDE 24 20-30 ANION GAP 8 4-16 GLUCOSE 110 H 65-100 CREATININE 0.70 0.5-1.5 CALCIUM 8.3 L 8.5-10.5 eGFR(CKD-EPI 2020) >90.0 >60 Dec 12, 2021 06:21 AM [facility] CBC PROFILE Sp ecimen Type: BLOOD No comment enter ed. Ordering Provid er: ISATU TODD Report Released Date/Time: Dec 10, 2021 07:22 AM Reporting Lab: [facility] [address] [facility] [address] Performing Lab: [facility] [address] [facility] [address] WBC 5.5 4.5-11.0 RBC 4.37 4.23-5.66 HGB [...] 0.00 0-0 Dec 12, 2021 06:00 AM [employer] MAGNESIUM Sp ecimen Type: PLASMA Comment: Testin g Performed on boo-box (405) SN:[id number] Ordering Provid er: ISATU TODD Report Released Date/Time: Dec 12, 2021 08:24 AM Reporting Lab: [facility] [address] [facility] [address] Performing Lab: [facility] [place] [facility] [address] [facility] [address] MAGNESIUM 1.8 1.6-2.6 Dec 12, 2021 06:00 AM [employer] PHOSPHORUS Sp ecimen Type: PLASMA Comment: Testin g Performed on boo-box (405) SN:[id number] Ordering Provid er: ISATU TODD Report Released Date/Time: Dec 12, 2021 08:24 AM Reporting Lab: [facility] [address] [facility] [address] Performing Lab: [facility] [address] [facility] [address] PHOSPHORUS 3.1 2.5-5.0 Dec 11, 2021 06:15 AM [employer] [place] [facility] Exch[facility]ery[facility] ELECTROLYTES Sp ecimen Type: PLASMA Comment: Tests performed on boo-box (405) SN:[id number] Ordering Provid er: ISATU TODD Report Released Date/Time: Dec 10, 2021 07:22 AM Reporting Lab: [facility] [address] [facility] [address] Performing Lab: [facility] [address] [facility] [address] SODIUM 137 135-145 POTASSIUM 4.3 3.5-5.0 CHLORIDE 108 100-110 CARBON DIOXIDE 20 20-30 ANION GAP 9 4-16 Dec 11, 2021 06:15 AM WHITE [facility] [employer] [facility] CBC PROFILE Sp ecimen Type: BLOOD Comment: Result s checked Ordering Provid er: ISATU TODD Report Released Date/Time: Dec 10, 2021 07:22 AM Reporting Lab: [facility] [address] [facility] [address] Performing Lab: [place] [facility] [facility] [address] [facility] [address] WBC 5.8 4.5-11.0 RBC 4.37 4.23-5.66 HGB [...] 0.00 0-0 Dec 11, 2021 06:00 AM [facility] PHOSPHORUS Sp ecimen Type: PLASMA Comment: Tests performed on boo-box (096) SN:[id number] Results checked Ordering Provid er: ISATU TODD Report Released Date/Time: Dec 11, 2021 07:44 AM Reporting Lab: [facility] [place] [facility] [address] [facility] [address] Performing Lab: [facility] [address] [facility] [address] PHOSPHORUS 3.0 2.5-5.0 Dec 10, 2021 08:05 AM [place] [facility] MAGNESIUM Sp ecimen Type: PLASMA Comment: [place] [id number] on Dec 10, 2021@08:31 Tests performed on boo-box (405) SN:[id number] Ordering Provid er: ISATU TODD Report Released Date/Time: Dec 10, 2021 07:22 AM Reporting Lab: [place] [facility] [address] [place] [facility] [place] [address] Performing Lab: [place] [facility] [address] [place] [facility] [place] [address] MAGNESIUM 1.7 1.6-2.6 Dec 10, 2021 08:05 AM [place] [facility] PHOSPHORUS Sp ecimen Type: PLASMA Comment: [place] [id number] on Dec 10, 2021@08:31 Tests performed on boo-box (405) SN:[id number] Ordering Provid er: ISATU TODD Report Released Date/Time: Dec 10, 2021 07:22 AM Reporting Lab: [place] [facility] [address] [place] [facility] [place] [address] Performing Lab: [place] [facility] [address] [place] [facility] [place] [address] PHOSPHORUS 1.8 L 2.5-5.0 Dec 10, 2021 08:05 AM [place] UREA NITROGEN Specimen Type: PLASMA [facility] Comment: [place] [id number] on Dec 10, 2021@08:31 Tests performed on boo-box (405) SN:[id number] Ordering Provid er: ISATU TODD Report Released Date/Time: Dec 10, 2021 07:22 AM Reporting Lab: [place] [facility] [address] [place] [facility] [place] [address] Performing Lab: [place] [facility] [address] [place] [facility] [place] [address] UREA NITROGEN 8 7-25 Dec 10, 2021 08:05 AM [place] [facility] GLUCOSE Sp ecimen Type: PLASMA Comment: [place] [id number] on Dec 10, 2021@08:31 Tests performed on boo-box (405) SN:[id number] Ordering Provid er: ISATU TODD Report Released Date/Time: Dec 10, 2021 07:22 AM Reporting Lab: [place] [facility] [address] [facility] [address] Performing Lab: [place] [facility] [address] [facility] [address] GLUCOSE 144 H 65-100 Dec 10, 2021 08:05 AM [place] [facility] CALCIUM Sp ecimen Type: PLASMA Comment: [place] [id number] on Dec 10, 2021@08:31 Tests performed on boo-box (405) SN:[id number] Ordering Provid er: ISATU TODD Report Released Date/Time: Dec 10, 2021 07:22 AM Reporting Lab: [place] [facility] [address] [facility] [address] Performing Lab: [place] [facility] [address] [facility] [address] CALCIUM 8.3 L 8.5-10.5 Dec 10, 2021 08:05 AM [place] [facility] ELECTROLYTES Sp ecimen Type: PLASMA Comment: [place] [id number] on Dec 10, 2021@08:31 Tests performed on boo-box (405) SN:[id number] Ordering Provid er: ISATU TODD Report Released Date/Time: Dec 10, 2021 07:22 AM Reporting Lab: [place] [facility] [address] [facility] [address] Performing Lab: [place] [facility] [address] [facility] [address] SODIUM 139 135-145 POTASSIUM 3.7 3.5-5.0 CHLORIDE 107 100-110 CARBON DIOXIDE 24 20-30 ANION GAP 8 4-16 Dec 10, 2021 08:05 AM [place] [facility] CBC PROFILE Sp ecimen Type: BLOOD No comment enter ed. Ordering Provid er: ISATU TODD Report Released Date/Time: Dec 10, 2021 07:22 AM Reporting Lab: [place] [facility] [address] [facility] [address] Performing Lab: [place] [facility] [address] [facility] [address] WBC 7.0 4.5-11.0 RBC 4.54 4.23-5.66 HGB [...] PLASMA AM [facility] PANEL Comment: [place] [id number] on Dec 10, 2021@08:31 Tests performed on boo-box (405) SN:[id number] Ordering Provid er: ISATU TODD Report Released Date/Time: Dec 10, 2021 07:22 AM Reporting Lab: [facility] [address] [facility] [address] Performing Lab: [facility] [address] [facility] [address] CREATININE 0.78 0.5-1.5 eGFR(CKD-EPI 2020) >90.0 >60 Dec 09, 2021 06:46 AM [place] [facility] MAGNESIUM Sp ecimen Type: PLASMA Comment: Tests performed on boo-box (405) SN:[id number] Ordering Provid er: ISATU TODD Report Released Date/Time: Dec 08, 2021 10:23 AM Reporting Lab: [place] [facility] [address] [facility] [address] Performing Lab: [place] [facility] [address] [facility] [address] MAGNESIUM 1.6 1.6-2.6 Dec 09, 2021 [facility] P4 GLU,BUN,CREAT,LYTES,CA Speci men Type: PLASMA 06:46 AM [facility] Comment: Tests performed on boo-box (405) SN:[id number] Ordering Provid er: ISATU TODD Report Released Date/Time: Dec 08, 2021 05:00 PM Reporting Lab: [facility] [address] [facility] [address] Performing Lab: [facility] [address] [facility] [address] UREA NITROGEN 6 L 7-25 SODIUM 134 [...] [facility] [address] [facility] [address] Performing Lab: [facility] [address] [facility] [address] WBC 7.1 4.5-11.0 RBC 4.40 4.23-5.66 HGB [...] 0-0 Dec 08, 2021 06:39 AM [facility] MAGNESIUM Sp ecimen Type: PLASMA Comment: Testin g Performed on boo-box (405) SN:[id number] Ordering Provid er: ISATU TODD Report Released Date/Time: Dec 07, 2021 10:32 AM Reporting Lab: [facility] [address] [facility] [address] Performing Lab: [facility] [address] [facility] [address] MAGNESIUM 1.5 L 1.6-2.6 Dec 08, 2021 06:39 AM [facility] CBC PROFILE Sp ecimen Type: BLOOD No comment enter ed. Ordering Provid er: ISATU TODD Report Released Date/Time: Dec 07, 2021 10:32 AM Reporting Lab: [facility] [address] [facility] [address] Performing Lab: [facility] [address] [facility] [address] WBC 8.4 4.5-11.0 RBC 4.75 4.23-5.66 HGB [...] ABSOLUTE NRBC 0.00 0-0 Dec 08, 2021 [facility] P4 GLU,BUN,CREAT,LYTES,CA Speci men Type: PLASMA 06:39 AM [facility] Comment: Testin g Performed on Pham check24 (405) SN:[id number] Ordering Provid er: ISATU TODD Report Released Date/Time: Dec 07, 2021 10:32 AM Reporting Lab: [facility] [address] [facility] [address] Performing Lab: [facility] [address] [facility] [address] UREA NITROGEN 6 L 7-25 SODIUM 136 135-145 POTASSIUM 3.3 L 3.5-5.0 CHLORIDE 104 100-110 CARBON DIOXIDE 22 20-30 ANION GAP 10 4-16 GLUCOSE 133 H 65-100 CREATININE 0.76 0.5-1.5 CALCIUM 8.4 L 8.5-10.5 eGFR(CKD-EPI 2020) >90.0 >60 Dec 07, 2021 [facility] P4 GLU,BUN,CREAT,LYTES,CA Speci men Type: PLASMA 06:42 AM [facility] Comment: Tests performed on Pham check24 (405) SN:[id number] Ordering Provid er: PORFIRIO WALTERS Report Released Date/Time: Dec 06, 2021 06:57 PM Reporting Lab: [facility] [address] [facility] [address] Performing Lab: [facility] [address] [facility] [address] UREA NITROGEN 9 7-25 SODIUM 135 135-145 POTASSIUM 3.5 3.5-5.0 CHLORIDE 103 100-110 CARBON DIOXIDE 22 20-30 ANION GAP 10 4-16 GLUCOSE 92 65-100 CREATININE 0.73 0.5-1.5 CALCIUM 8.0 L 8.5-10.5 eGFR(CKD-EPI 2020) >90.0 >60 Dec 07, 2021 06:42 [place] LIVER PROFILE Specimen Typ e: PLASMA AM [facility] Comment: Tests performed on RAP Index Nailhead Setter (405) SN:[id number] Ordering Provid er: PORFIRIO WALTERS Report Released Date/Time: Dec 06, 2021 06:57 PM Reporting Lab: [facility] [address] [facility] [address] Performing Lab: [facility] [address] [facility] [address] PROTEIN, TOTAL 5.7 L 6.0-8.5 ALBUMIN 2.4 L 3.2-5.0 BILIRUBIN, TOTAL 0.4 0.2-1.2 ALKALINE PHOSPHATASE 109 40-150 ALT(SGPT) 10 7-52 AST(SGOT) 15 5-34 FIB-4 SCORE 1.92 <2.67 Dec 07, 2021 06:42 AM [facility] CBC PROFILE Specimen Type: BLOOD [facility] No comment enter ed. Ordering Provid er: PORFIRIO WALTERS Report Released Date/Time: Dec 06, 2021 06:57 PM Reporting Lab: [facility] [address] [facility] [address] Performing Lab: [facility] [address] [facility] [address] WBC 5.7 4.5-11.0 RBC 4.15 L 4.23-5.66 [...] [facility]AM[facility] %) AUTOMATED Comment: Tests performed on boo-box (405) SN:[id number] Ordering Provid er: ISATU TODD Report Released Date/Time: Dec 07, 2021 10:28 AM Reporting Lab: [place] [facility] [address] [facility] [address] Performing Lab: [place] [facility] [address] [facility] [address] RETICULOCYTES (%) AUTOMATED 1.23 0. 6-2.0 RETICULOCYTES (ABS) AUTOMATED 0.052 0.030-0.090 Dec 06, 2021 09:45 [place] MRSA SURVL NARES Specimen Ty pe: NARES PM [facility] DNA No comment enter ed. Ordering Provid er: ALVARO VARGHESE Report Released Date/Time: Dec 07, 2021 02:20 AM Reporting Lab: [place] [facility] [address] [facility] [address] Performing Lab: [place] [facility] [address] [facility] [address] MRSA SURVL NARES DNA NEGATIVE NEGATIVE Dec 06, 2021 06:00 [place] URINALYSIS W/REFLEX TO Speci men Type: URINE PM [facility] CULTURE No comment enter ed. Ordering Provid er: JELNAI SÁNCHEZ Report Released Date/Time: Dec 06, 2021 11:57 AM Reporting Lab: [place] [facility] [address] [facility] [address] Performing Lab: [place] [facility] [address] [facility] [address] URINE COLOR Arlin YELLOW SPECIFIC GRAVITY 1.029 [...] 21, RIVER VARIANT Comment: https://www.cdc.gov/coronavirus/2019-ncov/cases-updates/variant- surveillance/variant-info.html The [employer] SARS CoV 2 [employer] Research Assay-GX is a next-generation sequencing (NGS) assa 2021 [facility] SEQUENCING y that determine s the complete genome sequence of the SARS-CoV-2 virus. The assay contains variant-tolerant primers to broaden and improve the coverage for variant detection and increase the sensitivity 12:00 [facility] PNL(WH) of the panel to enable detection from lower viral titer samples. The assay is run on the [employer] Sequencer, which performs automated library preparation, sequencing, analysis, and reporting. PM The sequence an alysis includes determination of viral phylogenetic lineage by comparison to the reference strain Wuhan-Hu-1, GenBank: [id number]. Sequence determination may not be possible owing [...] 2021 01:13 PM Reporting Lab: [facility] [address] [facility] [address] Performing Lab: [facility] [address] [facility] [address] SARS-CoV-2 CLADE() 22C (OMICRON) SARS-CoV-2 LINEAGE() BA.2.12.1 Dec 06, 2021 12:00 [facility] COVID-19 AG SCREEN Specimen Type: NASAL CAVITY PM [facility] PANEL BINAX(405) Comment: Testi ng Performed By: Mike Briscoe Ordering Provid er: JELANI SÁNCHEZ Report Released Date/Time: Dec 08, 2021 08:23 AM Reporting Lab: [facility] [address] [facility] [address] Performing Lab: [facility] [address] [facility] [address] COVID-19 AG SCRN(wrj BINAX) POSITIVE HH NE G Dec 06, 2021 12:00 PM [facility] TROPONIN II Sp ecimen Type: PLASMA Comment: Tests performed on Pham Nailhead Setter (405) SN:[id number] Ordering Provid er: JELANI SÁNCHEZ Report Released Date/Time: Dec 06, 2021 11:57 AM Reporting Lab: [facility] [address] [facility] [address] Performing Lab: [facility] [address] [facility] [address] TROPONIN II 0.03 0.00-0.29 Dec 06, 2021 [place] P4 GLU,BUN,CREAT,LYTES,CA Speci men Type: PLASMA 12:00 PM [facility] Comment: Testin g Performed on Pham Nailhead Setter (405) SN:[id number] Ordering Provid er: JELANI SÁNCHEZ Report Released Date/Time: Dec 06, 2021 11:57 AM Reporting Lab: [place] [facility] [address] [facility] [address] Performing Lab: [facility] [place] [facility] [address] [facility] [address] UREA NITROGEN 13 7-25 SODIUM 138 135-145 POTASSIUM 3.8 3.5-5.0 CHLORIDE 103 100-110 CARBON DIOXIDE 23 20-30 ANION GAP 12 4-16 GLUCOSE 105 H 65-100 CREATININE 0.90 0.5-1.5 CALCIUM 8.7 8.5-10.5 eGFR(CKD-EPI 2020) >90.0 >60 Dec 06, 2021 12:00 PM [facility] LIVER PROFILE Sp ecimen Type: PLASMA Comment: Testin g Performed on Pham Nailhead Setter (405) [id number] Ordering Provid er: JELANI SÁNCHEZ Report Released Date/Time: Dec 06, 2021 11:57 AM Reporting Lab: [facility] [address] [facility] [address] Performing Lab: [facility] [address] [facility] [address] PROTEIN, TOTAL 6.6 6.0-8.5 ALBUMIN 2.8 L 3.2-5.0 BILIRUBIN, TOTAL 0.6 0.2-1.2 ALKALINE PHOSPHATASE 134 40-150 ALT(SGPT) 13 7-52 AST(SGOT) 18 5-34 FIB-4 SCORE 1.94 <2.67 Dec 06, 2021 [facility] COVID-19+FLU/RSV DIAGNOSTIC Spe cimen Type: NASOPHARYNX 12:00 PM [facility] PANEL(405) Comment: Tests performed on Fligoo Genexpert (405) Critical results called to and read back by: ALESHIA WILKINSON RN 12/06/21 @ 1312 Ordering Provid er: JELANI SÁNCHEZ Report Released Date/Time: Dec 06, 2021 11:57 AM Reporting Lab: [facility] [address] [facility] [address] Performing Lab: [facility] [address] [facility] [address] FLU A(PCR) NEGATIVE NEGATIVE FLU B(PCR) NEGATIVE NEGATIVE RSV(PCR) NEGATIVE NEGATIVE COVID-19([id number]) DETECTED HH NO T DETECTED Dec 06, 2021 12:00 PM [facility] BNP(P) Sp ecimen Type: PLASMA Comment: Tests performed on Pham Nailhead Setter (405) SN:[id number] Ordering Provid er: JELANI SÁNCHEZ Report Released Date/Time: Dec 06, 2021 11:57 AM Reporting Lab: [facility] [address] [facility] [address] Performing Lab: [facility] [address] [facility] [address] BNP(P) 224.8 H 10-100 Dec 06, 2021 12:00 PM [facility] [place] [facility] CBC PROFILE Sp ecimen Type: BLOOD No comment enter ed. Ordering Provid er: JELANI SÁNCHEZ Report Released Date/Time: Dec 06, 2021 11:57 AM Reporting Lab: [facility] [place] [facility] [address] [facility] [address] Performing Lab: [facility] [address] [facility] [address] WBC 7.2 4.5-11.0 RBC 4.86 4.23-5.66 HGB [...] dy Source Pressure Rate Mass Index Dec 14, 97.6 F 91 138/68 18 /min 99 % 0 WHITE 2021 08:47 /min mm[Hg] RIVER PM [facility] Dec 14, 0 2021 03:14 RIVER PM T [facility] Dec 14, 97.1 F 91 139/68 20 /min 99 % WHITE 2021 02:23 /min mm[Hg] RIVER PM T [facility] Dec 14, 0 WHITE 2021 10:15 RIVER AM T [facility] Dec 14, 97.5 F 94 138/68 18 /min 97 % 0 WHITE 2021 10:13 /min mm[Hg] [facility] Smoking Status/Tobacco Use Comment [facility] Apr 01, 2020 01:16 PM QUIT TOBACCO USE 1-7 YEARS AGO [facility] Mar 24, 2020 03:00 PM QUIT TOBACCO USE 1-7 YEARS AGO [facility] Feb 21, 2019 04:11 PM QUIT TOBACCO USE 1-7 YEARS AGO [facility] Feb 20, 2019 03:38 PM QUIT TOBACCO USE 1-7 YEARS AGO [facility] Feb 03, 2019 09:50 AM QUIT TOBACCO USE 1-7 YEARS AGO [facility] May 25, 2016 11:53 PM QUIT TOBACCO USE IN PAST YEAR [facility] May 23, 2016 06:57 PM QUIT TOBACCO USE > 7 YEARS AGO [facility] May 19, 2016 03:55 [...] YEAR [facility] Mar 16, 2016 12:50 PM V1-PT DECLINES REF TO TOBACCO [facility] Mar 16, 2016 12:50 PM [...] the Encounter. The data comes from all [place] treatment facilities. Date/Time Radiology Report Provider Source Dec 13, 2021 12:57 PM MRI ABDOMEN W/WO CONTRAST: MARYELLEN LONG LUCAS LARES N [id number] -1950 [facility] Exm Date: DEC 13, 2021@12:57 Req Phys: ISATU TODD Loc: OP Unknown/0 12-15-2021@13:20 Img Loc: MRI IMAGING (OOS) Service: [facility] MEDICINE (Case [id number] COMPLETE) MRI ABDOMEN W/WO CONTRAST (M RI Detailed) CPT:39713 Reason for Study: further characterization of a [...] new lyphadenopathy REQUESTING MD: Isatu Todd PAGER: [phone] PHONE: [phone] Weight: 232.2 lb [105.32 kg] (12/12/2021 05:00) [...] patient will need to arrange for a dump 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 off [place] to take him/her home after the MRI [...] 2021 Date Verified: DEC 15, 2021 Service Plumber E-Sig:/ES/MARYELLEN LONG Report: MRI ABDOMEN W/WO CONTRAST [...] Primary Interpreting Staff: Staff AMELIA THOMAS (Service Plumber) / Dec 10, 2021 09:[address] ABDOMEN & PELVIS: RADIOLOGY,OUTSIDE [facility] LUCAS MEEK N [id number] -1950 M SERVICE [facility] Exm Date: DEC 10, 2021@09:30 Req Phys: ISATU TODD Loc: 1S [facility]/12-10@10:57 Img Loc: CT SCAN (OOS) Service: [facility] (Case [id number] COMPLETE) CT ABD & PELVIS WITHOUT CONT RAST (CT Detailed) CPT:14484 Reason for Study: 71 yo male with [...] RADIOLOGY [phone] to speak to the appropriate on call pharmacy technician. Report Status: Verified Date Reported: DEC 10, 2021 Date Verified: DEC 10, 2021 Service Plumber E-Sig: Report: EXAM: CT abdomen and pelvis [...] ph nodes. READING PHYSICIAN: Ramone Munoz D.O. [phone] 12/10/2021 10:[address] [facility] National Teleradiology Program [phone] (For Medical Practitioner Use Only ) [address] [facility], [facility] [address] [place] [address] Attention Patients / Veterans: If you have ques tions or concerns about these test results, please contact your o rdering provider or primary care team. Primary Diagnostic Code: SIGNIFICANT ABNORMALIT Y, ATTN NEEDED Primary Interpreting Staff: RADIOLOGY,OUTSIDE SERVICE, Staff Physician / Dec 09, 2021 07:34 AM BASW (MODIFIED): JESSIE CHENEY [facility] LUCAS MEEK N [id number] -1950 [facility] Exm Date: DEC 09, 2021@07:34 Req Phys: ISATU TODD Loc: 1S MED/12-09@11:26 Img Loc: XRAY (OOS) Service: [facility] MEDICINE (Case [id number] COMPLETE) BASW (MODIFIED) (RAD Detaile d) CPT:05728 Contrast Media : Barium Reason for Study: dysphagia ?esophageal spasm Clinical History: Report Status: Verified Date Reported: DEC 09, 2021 Date Verified: DEC 09, 2021 Service Plumber E-Sig:/ES/JESSIE CHENEY Report: DELISA (MODIFIED) , 12/09/2021 [...] Primary Interpreting Staff: JESSIE CHENEY, RADIOLOGIST (Service 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) /TLC Dec 06, 2021 12:[address] CHEST (INCLUDES ADRENALS): JESSIE CHENEY [facility] LUCAS MEEK N [id number] -1950 [facility] Exm Date: DEC 06, 2021@12:59 Req Phys: JELANI SÁNCHEZ Loc: [facility] ED DAYS M 1RD (Req'g Loc) Img Loc: CT SCAN (OOS) Service: Unknown (Case [id number] COMPLETE) CT THORAX W/O CONT (CT Detai led) CPT:84151 Reason for Study: Opacification right chest Clinical History: No contrast allergy BUN: 13 (12/06/21 12:00) CREATI: 0.90 (12/06/21 12:00) eGFR 05/16/21 09:43 52 L Weight: 232.6 lb [105.51 kg] (12/06/2021 11:40) BODY MASS INDEX - NO HEIGHTS FOUND Pager number: [phone] STAT orders MUST be called t o RADIOLOGY [phone] to speak to the appropriate on call pharmacy technician. Indications - Other: Opacification right chest, covid positive, lung cancer histo Report Status: Verified Date Reported: DEC 06, 2021 Date Verified: DEC 06, 2021 Service Plumber E-Sig:/ES/JESSIE CHENEY Report: CT THORAX W/O CONT [...] Primary Interpreting Staff: JESSIE CHENEY, RADIOLOGIST (Service Plumber) Primary Interpreting Resident: PRINCE CHAMPION, Resident /BR Dec 06, 2021 11:58 AM CHEST SINGLE VIEW: JESSIE CHENEY LUCAS MEEK N [id number] -1950 [facility] Exm Date: DEC 06, 2021@11:58 Req Phys: JELANI SÁNCHEZ Pat Loc: [facility] ED DAYS M 1RD (Req'g Loc) Img Loc: XRAY (OOS) Service: Unknown (Case [id number] COMPLETE) CHEST SINGLE VIEW (RAD Detai led) CPT:66827 Proc Modifiers : PORTABLE EXAM Reason for Study: SOB, home covid test positive Clinical History: Report Status: Verified Date Reported: DEC 06, 2021 Date Verified: DEC 06, 2021 Service Plumber E-Sig:/ES/JESSIE CHENEY Report: Exam type: Chest x-ray [...] Primary Interpreting Staff: JESSIE CHENEY, RADIOLOGIST (Service Plumber) /TLC Pathology Reports: +/- 30 days of [...] the Encounter. The data comes from all [place] treatment facilities. Date/Time Pathology Report Provider Source Jan 03, 2022 10:28 AM LR SURGICAL PATHOLOGY REPORT: STEFANY MILLER [facility] LOCAL TITLE: LR SURGICAL PATHOLOGY REPORT [facility] STANDARD TITLE: PATHOLOGY REPORT DATE OF NOTE: JAN 03, 2022@10:28:01 ENTRY DATE: JAN 03, 2022@10:28:01 AUTHOR: NIURKA MILLER EXP COSIGNER: URGENCY: STATUS: COMPLETED $APHDR Reporting Lab: [facility] [CLIA# [id number]] [address] [place] [address] - - - - - - [...] automatically d ocumented from SURGERY package case #[id number] Field (#32) PRINCIPAL PRE-OP DIAGNOSIS, (#.72) OTHER [...] automatically d ocumented from SURGERY package case #[id number] Field (#34) PRINCIPAL POST-OP DIAG, (#.74) OTHER [...] Label: Lucas Meek Paperwork: Lucas Meek Cassette: [id number];..;KALYANI;.;405;[id number] Specimen is labeled: ES bx Received in formalin are several pieces of pale boyd and brown tissue, 1.2 x 0.7 cm in aggregate. Submitted entirely in 1 cassette [id number];..;KALYANI;.;405;[id number] SAW 12/15/2021 Microscopic exam: *+* MODIFIED REPORT [...] report in rendering the final pathologic diagnosis. [address] [address] CPT: 28584 /emely/ NIURKA Yeung MD Signed Jan 03, 2022@10:28 Performing Laboratory: Surgical Pathology Report Performed By: [facility]TO[facility] [CLIA# [id number]] [address] [place] [address] $FTR - - - - - [...] - - LUCAS MEEK STANDARD FORM 515 ID:[id number] SEX:M :1950 AGE: 71 LOC: [facility] END PCP: Isatu Todd /emely/ NIURKA MILLER Staff Signed: 01/03/2022 10:28 Dec 21, 2021 11:46 AM LR SURGICAL PATHOLOGY [facility] LOC[facility] TITLE: LR SURGICAL PATHOLOGY REPORT [facility] STANDARD TITLE: PATHOLOGY REPORT DATE OF NOTE: DEC 21, 2021@11:46:59 ENTRY DATE: DEC 21, 2021@11:46:59 AUTHOR: NIURKA MILLER EXP COSIGNER: URGENCY: STATUS: COMPLETED $APHDR Reporting Lab: [facility] [CLIA# [id number]] [address] [place] [address] - - - - - - [...] automatically d ocumented from SURGERY package case #[id number] Field (#32) PRINCIPAL PRE-OP DIAGNOSIS, (#.72) OTHER [...] automatically d ocumented from SURGERY package case #[id number] Field (#34) PRINCIPAL POST-OP DIAG, (#.74) OTHER [...] Label: Lucas Meek Paperwork: Lucas Meek Cassette: [id number];..;KALYANI;.;405;[id number] Specimen is labeled: ES bx Received in formalin are several pieces of pale boyd and brown tissue, 1.2 x 0.7 cm in aggregate. Submitted entirely in 1 cassette [id number];..;KALYANI;.;405;[id number] SAW 12/15/2021 Microscopic exam: DIAGNOSIS: A. 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 Kendell long. TIARA Coombs was notified on 12/21/21. The attending pathologist who signature mansoor ears on this report has reviewed all diagnostic slides and has edited t he gross and/or microscopic portion of this report in rendering the final pathologic diagnosis. [address] [address] CPT: 90337 /emely/ NIURAK Yeung MD Signed Dec 21, 2021@11:46 Performing Laboratory: Surgical Pathology Report Performed By: [facility] [CLIA# [id number]] [address] [place] [address] $FTR - - - - - [...] - - LUCAS MEEK STANDARD FORM 515 ID:[id number] SEX:M :1950 AGE: 71 LOC: [facility] END PCP: Isatu Todd /emely/ NIURKA Yeung MD Signed: 12/21/2021 11:46 Dec 06, 2021 03:30 PM LR [facility] Reporting Lab: [facility] [CLIA# [id number]] [address] [place] [address] Accession [UID]: [id number] [[id number]] Receiv ed: Dec 06, 2021@16:14 Collection sample: BLOOD CUL T BOTTLE(NIRMAL/AERO)Collection date: Dec 06, 2021 15:30 Site/Specimen: BLOOD Provider: JELANI SÁNCHEZ Comment on specimen: LAC Test(s) ordered: BLOOD CULTURE ANAEROBI C....... completed: Dec 12, 2021 06:18 * BACTERIOLOGY FINAL REPORT => Dec 12, 2021 06:1 8 TECH CODE: [id number] Bacteriology Remark(s): NO GROWTH IN 5 DAYS =--=--=--=--=--=--=--=--=--=--=--=--=--= --=--=--=--=--=--=--=--=--=--=--=--=-- Performing Laboratory: Bacteriology Report Performed By: [facility] [CLIA# [id number]] [address] [place] [address] Dec 06, 2021 03:30 PM LR MICROBIOLOGY [facility]PORT: [facility] Reporting Lab: [facility] [CLIA# [id number]] [address] [place] [address] Accession [UID]: [id number] [[id number]] Receiv ed: Dec 06, 2021@16:14 Collection sample: BLOOD CUL T BOTTLE(NIRMAL/AERO)Collection date: Dec 06, 2021 15:30 Site/Specimen: BLOOD Provider: JELANI SÁNCHEZ Comment on specimen: LAC Test(s) ordered: BLOOD CULTURE AEROBIC. ........ completed: Dec 12, 2021 06:17 * BACTERIOLOGY FINAL REPORT => Dec 12, 2021 06:1 7 TECH CODE: [id number] Bacteriology Remark(s): NO GROWTH IN 5 DAYS =--=--=--=--=--=--=--=--=--=--=--=--=--= --=--=--=--=--=--=--=--=--=--=--=--=-- Performing Laboratory: Bacteriology Report Performed By: [facility] [CLIA# [id number]] [address] [place] [address]
--- OUTSIDE RECORDS SUMMARY | 2022-01-19 08:54 | XMS_ITS ---
DAILY HOSPITALIZATION DATA [facility] Encounter Summary Created on:December 14, 2021 Patient:LUCAS MEEK Sex:Male :1950 Author Organization [facility] Address [address] [place] [id number] Support Name Relationship Address Phone YUSRA MEEK Unavailable [address] [place] [place] [address] YUSRA MEEK Unavailable [address] [place] [facility] [place] [address] CLAY MOSLEY Unavailable Unavailable SJ SANTACRUZ Unavailable [...] MEDICARE MEDICARE PART Jun 18, PART A [id number] DO KALYANI PATIENT (WNR) (M) A 2016 13A 1 [place] MEDICARE MEDICARE PART Jun 18, PART B [id number] DO KALYANI PATIENT (WNR) (M) B 2016 13A 1 [place] MEDICARE MEDICARE PART Jun 18, PART A [id number] KALYANIDO PATIENT (WNR) (M) A 2017 VH81 2 [place] MEDICARE MEDICARE PART Jun 18, PART B [id number] DO KALYANI PATIENT (WNR) (M) B 2017 VH81 2 [place] UNITED MEDICARE MCR(Jun 18 [id number] Luz MEEK PATIENT HEALTHCARE ADVANTAGE NR) 2021 37 0 [facility] (WNR) Selected Encounter This section includes the information on record at [place] for the Encounter. Date/Time Encounter Type Encounter Description Reason Provider Source Dec 14, 2021 06:19 Inpatient Visit DAILY HOSPITALIZATION DATA AM [facility] Encounter Template Text not used by [...] AM AMBULATORY - NONE [place] [facility] Jan 06, 2022 02:00 PM [place] [facility] Jan 10, 2022 11:30 AM AMBULATORY - MEDICINE [facility] Jan 24, 2022 08:00 [place] [facility] Feb 21, 2022 10:00 AM [place]UL[place]ORY [place] [facility] Mar 21, 2022 10:30 AM [...] The data comes from all [place] treatment [facility]. Test Date/Time Test Type Test Details Facility Name October 31, 2021 07:37 AM Consult Order COMMUNITY CARE-EGD [facility] Cons Receiving Room Clerk's Choice November 15, 2021 10:37 AM Consult Order [facility] CARE-PODIATRY Cons Receiving Room Clerk's Choice Dec 06, 2021 12:52 PM [place]acy [place] Infusion Order [facility] Dec 06, 2021 03:24 PM Pharmacy [place] Order [facility] Dec 06, 2021 03:40 PM Pharmacy [place] [facility] Dec 15, 2021 08:41 AM Consult Order SPEECH PATHOLOGY [place] OUT[place] Cons [facility] Receiving Room Clerk's Choice Jan 15, 2022 10:08 PM Consult Order [facility] CARE-PALLIATIVE CARE Cons Receiving Room Clerk's Choice Lab Results: +/- 30 days [...] Reference Range Comment Dec 15, 2021 [place] P4 GLU,BUN,CREAT,LYTES,CA Speci men Type: PLASMA 06:43 AM [facility] Comment: Tests performed on Semmx (405) SN:[id number] Ordering Provid er: ISATU TODD Report Released Date/Time: Dec 11, 2021 07:42 AM Reporting Lab: [facility] [address] [facility] [address] Performing Lab: [facility] [address] [facility] [address] UREA NITROGEN 9 7-25 SODIUM 137 135-145 POTASSIUM 3.8 3.5-5.0 CHLORIDE 105 100-110 CARBON DIOXIDE 26 20-30 ANION GAP 6 4-16 GLUCOSE 102 H 65-100 CREATININE 0.64 0.5-1.5 CALCIUM 8.1 L 8.5-10.5 eGFR(CKD-EPI 2020) >90.0 >60 Dec 15, 2021 06:43 AM [place] [facility] CBC PROFILE Sp ecimen Type: BLOOD No comment enter ed. Ordering Provid er: ISATU TODD Report Released Date/Time: Dec 10, 2021 07:22 AM Reporting Lab: [facility] [address] [facility] [address] Performing Lab: [facility] [address] [facility] [address] WBC 5.7 4.5-11.0 RBC 4.22 L 4.23-5.66 [...] ABSOLUTE NRBC 0.00 0-0 Dec 14, 2021 [facility] CYTOGENETIC Specimen Type: ESOPHAGUS 02:59 PM VA[facility] FISH([facility]) Comment: ~For T est: CYTOGENETIC FISH([facility]) ~FISH HER 2 NUE, FFPE See full report in [employer] TV Image display viewer/tab#LAB-Reference Ordering Provid er: NIURKA MILLER Report Released Date/Time: Dec 21, 2021 12:11 PM Reporting Lab: [facility] [address] [facility] [address] Performing Lab: [facility] CYTOGENETIC FISH([facility]) comment Dec 14, 2021 [facility] P4 GLU,BUN,CREAT,LYTES,CA Speci men Type: PLASMA 06:27 AM [facility] Comment: Tests performed on Semmx (405) SN:[id number] Ordering Provid er: ISATU TODD Report Released Date/Time: Dec 11, 2021 07:42 AM Reporting Lab: [facility] [address] [facility] [address] Performing Lab: [facility] [address] [facility] [address] UREA NITROGEN 10 7-25 SODIUM 137 135-145 [...] Reporting Lab: [facility] [address] [facility] [address] Performing Lab: [facility] [address] [facility] [address] WBC 6.0 4.5-11.0 RBC 4.29 4.23-5.66 HGB [...] ABSOLUTE NRBC 0.00 0-0 Dec 13, 2021 [facility] P4 GLU,BUN,CREAT,LYTES,CA Speci men Type: PLASMA 06:34 AM [facility] Comment: Tests performed on Semmx (405) SN:[id number] Ordering Provid er: ISATU TODD Report Released Date/Time: Dec 11, 2021 07:42 AM Reporting Lab: [facility] [address] [facility] [address] Performing Lab: [facility] [address] [facility] [address] UREA NITROGEN 12 7-25 SODIUM 136 135-145 [...] Reporting Lab: [facility] [address] [facility] [address] Performing Lab: [facility] [address] [facility] [address] WBC 5.6 4.5-11.0 RBC 4.28 4.23-5.66 HGB [...] ABSOLUTE NRBC 0.00 0-0 Dec 12, 2021 [facility] P4 GLU,BUN,CREAT,LYTES,CA Speci men Type: PLASMA 06:21 AM [facility] Comment: Tests performed on Semmx (405) SN:[id number] Ordering Provid er: ISATU TODD Report Released Date/Time: Dec 11, 2021 07:42 AM Reporting Lab: [facility] [address] [facility] [address] Performing Lab: [facility] [address] [facility] [address] UREA NITROGEN 11 7-25 SODIUM 139 135-145 [...] Dec 10, 2021 07:22 AM Reporting Lab: [facility] [address] [facility] [address] Performing Lab: [facility] [address] [facility] [address] WBC 5.5 4.5-11.0 RBC 4.37 4.23-5.66 HGB [...] 0.00 0-0 Dec 12, 2021 06:00 AM [facility] MAGNESIUM Sp ecimen Type: PLASMA Comment: Testin g Performed on Semmx (405) SN:[id number] Ordering Provid er: ISATU TODD Report Released Date/Time: Dec 12, 2021 08:24 AM Reporting Lab: [place] [facility] [employer] [address] [facility] [address] Performing Lab: [facility] [place] [facility] [employer] [address] [facility] [address] MAGNESIUM 1.8 1.6-2.6 Dec 12, 2021 06:00 AM [facility] [employer] PHOSPHORUS Sp ecimen Type: PLASMA Comment: Testin g Performed on Semmx (405) SN:[id number] Ordering Provid er: ISATU TODD Report Released Date/Time: Dec 12, 2021 08:24 AM Reporting Lab: [place] [facility] [employer] [address] [facility] [address] Performing Lab: [place] [employer] [address] [facility] [address] PHOSPHORUS 3.1 2.5-5.0 Dec 11, 2021 06:15 AM [facility] [place] [employer] ELECTROLYTES Sp ecimen Type: PLASMA Comment: Tests performed on Semmx (405) SN:[id number] Ordering Provid er: ISATU TODD Report Released Date/Time: Dec 10, 2021 07:22 AM Reporting Lab: [place] [facility] [employer] [address] [facility] [address] Performing Lab: [place] [facility] [employer] [address] [facility] [address] SODIUM 137 135-145 POTASSIUM 4.3 3.5-5.0 CHLORIDE 108 100-110 CARBON DIOXIDE 20 20-30 ANION GAP 9 4-16 Dec 11, 2021 06:15 AM [place] Tetra TechT [facility] CBC PROFILE Sp ecimen Type: BLOOD Comment: Result s checked Ordering Provid er: ISATU TODD Report Released Date/Time: Dec 10, 2021 07:22 AM Reporting Lab: [place] OMEGAT [facility] [address] [facility] [address] Performing Lab: [facility] [place] OMEGAT [facility] [address] [facility] [address] WBC 5.8 4.5-11.0 RBC 4.37 4.23-5.66 HGB [...] 0.00 0-0 Dec 11, 2021 06:00 AM [facility] PHOSPHORUS Sp ecimen Type: PLASMA Comment: Tests performed on Semmx (485) SN:[id number] Results checked Ordering Provid er: ISATU TODD Report Released Date/Time: Dec 11, 2021 07:44 AM Reporting Lab: [facility] [address] [facility] [address] Performing Lab: [place] OMEGAT [facility] [address] [facility] [address] PHOSPHORUS 3.0 2.5-5.0 Dec 10, 2021 08:05 AM [place] [facility] MAGNESIUM Sp ecimen Type: PLASMA Comment: [place] [id number] on Dec 10, 2021@08:31 Tests performed on Semmx (405) SN:[id number] Ordering Provid er: ISATU TODD Report Released Date/Time: Dec 10, 2021 07:22 AM Reporting Lab: [place] [facility] [address] [place] [facility] [place] [address] Performing Lab: [place] [facility] [address] [place] [facility] [place] [address] MAGNESIUM 1.7 1.6-2.6 Dec 10, 2021 08:05 AM [place] [facility] PHOSPHORUS Sp ecimen Type: PLASMA Comment: [place] [id number] on Dec 10, 2021@08:31 Tests performed on Semmx (405) SN:[id number] Ordering Provid er: ISATU TODD Report Released Date/Time: Dec 10, 2021 07:22 AM Reporting Lab: [place] [facility] [address] [place] [facility] [place] [address] Performing Lab: [place] [facility] [address] [place] [facility] [place] [address] PHOSPHORUS 1.8 L 2.5-5.0 Dec 10, 2021 08:05 AM [place] [facility] GLUCOSE Sp ecimen Type: PLASMA Comment: [place] [id number] on Dec 10, 2021@08:31 Tests performed on Semmx (405) SN:[id number] Ordering Provid er: ISATU TODD Report Released Date/Time: Dec 10, 2021 07:22 AM Reporting Lab: [place] [facility] [address] [place] [facility] [place] [address] Performing Lab: [place] [facility] [address] [place] [facility] [place] [address] GLUCOSE 144 H 65-100 Dec 10, 2021 08:05 AM [place] [facility] CALCIUM Sp ecimen Type: PLASMA Comment: [place] [id number] on Dec 10, 2021@08:31 Tests performed on Semmx (405) SN:[id number] Ordering Provid er: ISATU TODD Report Released Date/Time: Dec 10, 2021 07:22 AM Reporting Lab: [place] [facility] [address] [place] [facility] [place] [address] Performing Lab: [place] [facility] [address] [facility] [address] CALCIUM 8.3 L 8.5-10.5 Dec 10, 2021 08:05 AM [place] UREA NITROGEN Specimen Type: PLASMA [facility] Comment: [place] [id number] on Dec 10, 2021@08:31 Tests performed on Pham LifeOnKey (405) SN:[id number] Ordering Provid er: ISATU TODD Report Released Date/Time: Dec 10, 2021 07:22 AM Reporting Lab: [place] [facility] [address] [facility] [address] Performing Lab: [place] [facility] [address] [facility] [address] UREA NITROGEN 8 7-25 Dec 10, 2021 08:05 AM [place] [facility] ELECTROLYTES Sp ecimen Type: PLASMA Comment: [place] [id number] on Dec 10, 2021@08:31 Tests performed on Semmx (405) SN:[id number] Ordering Provid er: ISATU TODD Report Released Date/Time: Dec 10, 2021 07:22 AM Reporting Lab: [place] [facility] [address] [facility] [address] Performing Lab: [place] [facility] [address] [facility] [address] SODIUM 139 135-145 POTASSIUM 3.7 3.5-5.0 CHLORIDE 107 100-110 CARBON DIOXIDE 24 20-30 ANION GAP 8 4-16 Dec 10, 2021 08:05 [place] CREATININE WITH eGFR Specime n Type: PLASMA AM [facility] PANEL Comment: [place] [id number] on Dec 10, 2021@08:31 Tests performed on Pham LifeOnKey (405) SN:[id number] Ordering Provid er: ISATU TODD Report Released Date/Time: Dec 10, 2021 07:22 AM Reporting Lab: [place] [facility] [address] [facility] [address] Performing Lab: [place] [facility] [address] [facility] [address] CREATININE 0.78 0.5-1.5 eGFR(CKD-EPI 2020) >90.0 >60 Dec 10, 2021 08:05 AM [facility] CBC PROFILE Sp ecimen Type: BLOOD No comment enter ed. Ordering Provid er: ISATU TODD Report Released Date/Time: Dec 10, 2021 07:22 AM Reporting Lab: [place] [facility]GAT [facility] [address] [facility] [address] Performing Lab: [place] [facility] [address] [facility] [address] WBC 7.0 4.5-11.0 RBC 4.54 4.23-5.66 HGB [...] 0.00 0-0 Dec 09, 2021 06:46 AM [facility] MAGNESIUM Sp ecimen Type: PLASMA Comment: Tests performed on Semmx (789) SN:[id number] Ordering Provid er: ISATU TODD Report Released Date/Time: Dec 08, 2021 10:23 AM Reporting Lab: [facility] [address] [facility] [address] Performing Lab: [facility] [address] [facility] [address] MAGNESIUM 1.6 1.6-2.6 Dec 09, 2021 [facility] P4 GLU,BUN,CREAT,LYTES,CA Speci men Type: PLASMA 06:46 AM [facility] Comment: Tests performed on Semmx (405) SN:[id number] Ordering Provid er: ISATU TODD Report Released Date/Time: Dec 08, 2021 05:00 PM Reporting Lab: [facility] [address] [facility] [address] Performing Lab: [facility] [address] [facility] [address] UREA NITROGEN 6 L 7-25 SODIUM 134 [...] Reporting Lab: [facility] [address] [facility] [address] Performing Lab: [facility] [address] [facility] [address] WBC 7.1 4.5-11.0 RBC 4.40 4.23-5.66 HGB [...] 0.00 0-0 Dec 08, 2021 06:39 AM [place] [employer] T [facility] MAGNESIUM Sp ecimen Type: PLASMA Comment: Testin g Performed on Semmx (405) SN:[id number] Ordering Provid er: ISATU TODD Report Released Date/Time: Dec 07, 2021 10:32 AM Reporting Lab: [facility] [address] [facility] [address] Performing Lab: [facility] [address] [facility] [address] MAGNESIUM 1.5 L 1.6-2.6 Dec 08, 2021 [place] [employer]ell[employer] T P4 GLU,BUN,CREAT,LYTES,CA Speci men Type: PLASMA 06:39 AM [facility] Comment: Testin g Performed on Semmx (405) SN:[id number] Ordering Provid er: ISATU TODD Report Released Date/Time: Dec 07, 2021 10:32 AM Reporting Lab: [facility] [address] [facility] [address] Performing Lab: [facility] [address] [facility] [address] UREA NITROGEN 6 L 7-25 SODIUM 136 135-145 POTASSIUM 3.3 L 3.5-5.0 CHLORIDE 104 100-110 CARBON DIOXIDE 22 20-30 ANION GAP 10 4-16 GLUCOSE 133 H 65-100 CREATININE 0.76 0.5-1.5 CALCIUM 8.4 L 8.5-10.5 eGFR(CKD-EPI 2020) >90.0 >60 Dec 08, 2021 06:39 AM [place] [employer]ellic[employer] T [facility] CBC PROFILE Sp ecimen Type: BLOOD No comment enter ed. Ordering Provid er: ISATU TODD Report Released Date/Time: Dec 07, 2021 10:32 AM Reporting Lab: [facility] [address] [facility] [address] Performing Lab: [facility] [address] [facility] WBC 8.4 4.5-11.0 RBC 4.75 4.23-5.66 [...] NRBC 0.00 0-0 Dec 07, 2021 06:42 [facility] LIVER PROFILE Specimen Typ e: PLASMA AM [facility] Comment: Tests performed on Semmx (405 SN:[id number] Ordering Provid er: PORFIRIO WALTERS Report Released Date/Time: Dec 06, 2021 06:57 PM Reporting Lab: [facility] [address] [facility] [address] Performing Lab: [facility] [address] [facility] [address] PROTEIN, TOTAL 5.7 L 6.0-8.5 ALBUMIN 2.4 L 3.2-5.0 BILIRUBIN, TOTAL 0.4 0.2-1.2 ALKALINE PHOSPHATASE 109 40-150 ALT(SGPT) 10 7-52 AST(SGOT) 15 5-34 FIB-4 SCORE 1.92 <2.67 Dec 07, 2021 [facility] P[facility] GLU,BUN,CREAT,LYTES,CA Speci men Type: PLASMA 06:42 AM [facility] Comment: Tests performed on Semmx (405) SN:[id number] Ordering Provid er: PORFIRIO WALTERS Report Released Date/Time: Dec 06, 2021 06:57 PM Reporting Lab: [place] [facility] [address] [facility] [address] Performing Lab: [place] [facility] [address] [facility] [address] UREA NITROGEN 9 7-25 SODIUM 135 135-145 POTASSIUM 3.5 3.5-5.0 CHLORIDE 103 100-110 CARBON DIOXIDE 22 20-30 ANION GAP 10 4-16 GLUCOSE 92 65-100 CREATININE 0.73 0.5-1.5 CALCIUM 8.0 L 8.5-10.5 eGFR(CKD-EPI 2020) >90.0 >60 Dec 07, 2021 06:42 AM [place] CBC PROFILE Specimen Type: BLOOD [facility] No comment enter ed. Ordering Provid er: PORFIRIO WALTERS Report Released Date/Time: Dec 06, 2021 06:57 PM Reporting Lab: [place] [facility] [address] [facility] [address] Performing Lab: [facility] [address] [facility] [address] WBC 5.7 4.5-11.0 RBC 4.15 L 4.23-5.66 [...] [facility] %) AUTOMATED Comment: Tests performed on Semmx (405) SN:[id number] Ordering Provid er: ISATU TODD Report Released Date/Time: Dec 07, 2021 10:28 AM Reporting Lab: [place] [facility] [address] [facility] [address] Performing Lab: [place] [facility] [address] [facility] [address] RETICULOCYTES (%) AUTOMATED 1.23 0. 6-2.0 RETICULOCYTES (ABS) AUTOMATED 0.052 0.030-0.090 Dec 06, 2021 09:45 [place] MRSA SURVL NARES Specimen Ty pe: NARES PM [facility] DNA No comment enter ed. Ordering Provid er: ALVARO VARGHESE Report Released Date/Time: Dec 07, 2021 02:20 AM Reporting Lab: [place] [facility] [address] [facility] [address] Performing Lab: [place] [facility] [address] [facility] [address] MRSA SURVL NARES DNA NEGATIVE NEGATIVE Dec 06, 2021 06:00 [place] URINALYSIS W/REFLEX TO Speci men Type: URINE PM [facility] CULTURE No comment enter ed. Ordering Provid er: JELANI SÁNCHEZ Report Released Date/Time: Dec 06, 2021 11:57 AM Reporting Lab: [place] [facility] [address] [facility] [address] Performing Lab: [place] [facility] [address] [facility] [address] URINE COLOR Arlin YELLOW SPECIFIC GRAVITY 1.029 [...] 21, [place] VARIANT Comment: https://www.cdc.gov/coronavirus/2019-ncov/cases-updates/variant- surveillance/variant-info.html The ShotSpotter SARS CoV 2 [employer] Research Assay-GX is a next-generation sequencing (NGS) assa 2021 [facility] SEQUENCING y that determine s the complete genome sequence of the SARS-CoV-2 virus. The assay contains variant-tolerant primers to broaden and improve the coverage for variant detection and increase the sensitivity 12:00 [facility] PNL(WH) of the panel to enable detection from lower viral titer samples. The assay is run on the Intellicyt Sequencer, which performs automated library preparation, sequencing, analysis, and reporting. PM The sequence an alysis includes determination of viral phylogenetic lineage by comparison to the reference strain Wuhan-Hu-1, GenBank: [id number]. Sequence determination may not be possible owing [...] Dec 06, 2021 01:13 PM Reporting Lab: [facility] [address] [facility] [address] Performing Lab: [facility] [address] [facility] [address] SARS-CoV-2 CLADE() 22C (OMICRON) SARS-CoV-2 LINEAGE() BA.2.12.1 Dec 06, 2021 12:00 [facility] COVID-19 AG SCREEN Specimen Type: NASAL CAVITY PM [facility] PANEL BINAX(405) Comment: Testi ng Performed By: Mike Briscoe Ordering Provid er: JELANI SÁNCHEZ Report Released Date/Time: Dec 08, 2021 08:23 AM Reporting Lab: [facility] [address] [facility] [address] Performing Lab: [facility] [address] [facility] [address] COVID-19 AG SCRN(wrj BINAX) POSITIVE HH NE G Dec 06, 2021 12:00 PM [facility] LIVER PROFILE Sp ecimen Type: PLASMA Comment: Testin g Performed on Pham B2B Account Executive (405) SN:[id number] Ordering Provid er: JELANI SÁNCHEZ Report Released Date/Time: Dec 06, 2021 11:57 AM Reporting Lab: [facility] [address] [facility] [address] Performing Lab: [facility] [address] [facility] [address] PROTEIN, TOTAL 6.6 6.0-8.5 ALBUMIN 2.8 L 3.2-5.0 BILIRUBIN, TOTAL 0.6 0.2-1.2 ALKALINE PHOSPHATASE 134 40-150 ALT(SGPT) 13 7-52 AST(SGOT) 18 5-34 FIB-4 SCORE 1.94 <2.67 Dec 06, 2021 12:00 PM [facility] TR[facility] Sp ecimen Type: PLASMA Comment: Tests performed on Pham B2B Account Executive (405) SN:[id number] Ordering Provid er: JELANI SÁNCHEZ Report Released Date/Time: Dec 06, 2021 11:57 AM Reporting Lab: [facility] [address] [facility] [address] Performing Lab: [facility] [address] [facility] [address] TROPONIN II 0.03 0.00-0.29 Dec 06, 2021 [facility] P4 GLU,BUN,CREAT,LYTES,CA Speci men Type: PLASMA 12:00 PM [facility] Comment: Testin g Performed on Pham B2B Account Executive (405) SN:[id number] Ordering Provid er: JELANI SÁNCHEZ Report Released Date/Time: Dec 06, 2021 11:57 AM Reporting Lab: [facility] [address] [facility] [address] Performing Lab: [facility] [address] [facility] [address] UREA NITROGEN 13 7-25 SODIUM 138 135-145 POTASSIUM 3.8 3.5-5.0 CHLORIDE 103 100-110 CARBON DIOXIDE 23 20-30 ANION GAP 12 4-16 GLUCOSE 105 H 65-100 CREATININE 0.90 0.5-1.5 CALCIUM 8.7 8.5-10.5 eGFR(CKD-EPI 2020) >90.0 >60 Dec 06, 2021 12:00 PM [facility] BNP(P) Sp ecimen Type: PLASMA Comment: Tests performed on Pham B2B Account Executive (405) SN:[id number] Ordering Provid er: JELANI SÁNCHEZ Report Released Date/Time: Dec 06, 2021 11:57 AM Reporting Lab: [facility] [facility] [facility] [address] [facility] [address] Performing Lab: [facility] T [facility] [address] [facility] [address] BNP(P) 224.8 H 10-100 Dec 06, 2021 [facility] [place] COVID-19+FLU/RSV DIAGNOSTIC Spe cimen Type: NASOPHARYNX 12:00 PM [facility] PANEL(405) Comment: Tests performed on [employer] (405) Critical results called to and read back by: ALESHIA WILKINSON RN 12/06/21 @ 1312 Ordering Provid er: JELANI SÁNCHEZ Report Released Date/Time: Dec 06, 2021 11:57 AM Reporting Lab: [facility] [address] [facility] [address] Performing Lab: [place] [facility] [address] [facility] [address] FLU A(PCR) NEGATIVE NEGATIVE FLU B(PCR) NEGATIVE NEGATIVE RSV(PCR) NEGATIVE NEGATIVE COVID-19([id number]) DETECTED HH NO T DETECTED Dec 06, 2021 12:00 PM [facility] Sp ecimen Type: BLOOD No comment enter ed. Ordering Provid er: JELANI SÁNCHEZ Report Released Date/Time: Dec 06, 2021 11:57 AM Reporting Lab: [facility] [address] [facility] [address] Performing Lab: [facility] [address] [facility] [address] WBC 7.2 4.5-11.0 RBC 4.86 4.23-5.66 HGB [...] WHITE 2021 08:47 /min mm[Hg] RIVER PM [facility] Dec 14, 0 2021 03:14 RIVER PM T [facility] Dec 14, 97.1 F 91 139/68 20 /min 99 % WHITE 2021 02:23 /min mm[Hg] RIVER PM T [facility] Dec 14, 0 WHITE 2021 10:15 RIVER AM T [facility] Dec 14, 97.5 F 94 138/68 18 /min 97 % 0 WHITE 2021 10:13 /min mm[Hg] RIVER AM [facility] Social History: Smoking Status (Most current) [...] took place. Date/Time Smoking Status/Tobacco Use Comment [facility] Apr 01, 2020 01:16 PM QUIT TOBACCO USE 1-7 YEARS AGO [facility] Mar 24, 2020 03:00 PM QUIT TOBACCO USE 1-7 YEARS AGO [facility] Feb 21, 2019 [...] TOBACCO USE IN PAST YEAR [facility] May 01, 2016 03:11 PM QUIT TOBACCO USE IN PAST YEAR [facility] May 01, 2016 11:19 AM QUIT TOBACCO USE IN PAST YEAR [facility] Mar 16, 2016 12:50 PM V1-PT DECLINES REF TO TOBACCO [facility] CESS PRGM Mar 16, 2016 12:50 PM V1-PT THINKING ABOUT QUIT [facility] TOBACCO USE Aug 12, 2015 08:48 AM CURRENT SMOKER [facility] Yates [facility] Radiology Reports: +/- 30 days of [...] W/WO CONTRAST: MARYELLEN LONG LUCAS LARES N [id number] -1950 [facility] Exm Date: DEC 13, 2021@12:57 Req Phys: ISATU TODD Loc: OP Unknown/0 12-15-2021@13:20 Img Loc: MRI IMAGING (OOS) Service: [facility] MEDICINE (Case [id number] COMPLETE) MRI ABDOMEN W/WO CONTRAST (M RI Detailed) CPT:00176 Reason for Study: further characterization of a [...] new lyphadenopathy REQUESTING MD: Isatu Todd PAGER: [phone] PHONE: [phone] Weight: 232.2 lb [105.32 kg] (12/12/2021 05:00) [...] patient will need to arrange for a route driver salesperson to take him/her home after the MRI [...] 15, 2021 Date Verified: DEC 15, 2021 Biomass Plant Technician E-Sig:/ES/MARYELLEN LONG Report: MRI ABDOMEN W/WO [...] MALIGNANCY Primary Interpreting Staff: Staff AMELIA THOMAS (Biomass Plant Technician) / Dec 10, 2021 09:[address] ABDOMEN & PELVIS: RADIOLOGY,OUTSIDE [facility] LUCAS MEEK N [id number] -1950 M SERVICE [facility] Exm Date: DEC 10, 2021@09:30 Req Phys: ISATU TODD Loc: 1S [facility]/12-10@10:57 Img Loc: CT SCAN (OOS) Service: [facility] (Case [id number] COMPLETE) CT ABD & PELVIS WITHOUT CONT RAST (CT Detailed) CPT:18164 Reason for Study: 71 yo male with [...] RADIOLOGY [phone] to speak to the appropriate production technician. Report Status: Verified Date Reported: DEC 10, 2021 Date Verified: DEC 10, 2021 Biomass Plant Technician E-Sig: Report: EXAM: CT abdomen and [...] ph nodes. READING PHYSICIAN: Ramone Munoz D.O. [phone] 12/10/2021 10:55 EDT [facility] National Teleradiology Program [phone] (For Medical Practitioner Use Only ) [address], [facility] [address], [address] [place] [address] Attention Patients / Veterans: If you have ques tions or concerns about these test results, please contact your o rdering provider or primary care team. Primary Diagnostic Code: SIGNIFICANT ABNORMALIT Y, ATTN NEEDED Primary Interpreting Staff: RADIOLOGY,OUTSIDE SERVICE, Staff Physician / Dec 09, 2021 07:34 AM BASW (MODIFIED): JESSIE CHENEY [facility] LUCAS MEEK N [id number] -1950 [facility] Exm Date: DEC 09, 2021@07:34 Req Phys: ISATU TODD Loc: 1S MED/12-09@11:26 Img Loc: XRAY (OOS) Service: [facility] MEDICINE (Case [id number] COMPLETE) BASW (MODIFIED) (RAD Detaile d) CPT:50483 Contrast Media : Barium Reason for Study: dysphagia ?esophageal spasm Clinical History: Report Status: Verified Date Reported: DEC 09, 2021 Date Verified: DEC 09, 2021 Biomass Plant Technician E-Sig:/ES/JESSIE CHENEY Report: DELISA (MODIFIED) , [...] REQUIRED Primary Interpreting Staff: JESSIE CHENEY, RADIOLOGIST (Biomass Plant Technician) /TLC Dec 06, 2021 12:[address] CHEST (INCLUDES ADRENALS): JESSIE CHENEY [facility] LUCAS MEEK N [id number] -1950 [facility] Exm Date: DEC 06, 2021@12:59 Req Phys: JELANI SÁNCHEZ Loc: [facility] ED DAYS M 1RD (Req'g Loc) Img Loc: CT SCAN (OOS) Service: Unknown (Case [id number] COMPLETE) CT THORAX W/O CONT (CT Detai led) CPT:99517 Reason for Study: Opacification right chest Clinical History: No contrast allergy BUN: 13 (12/06/21 12:00) CREATI: 0.90 (12/06/21 12:00) eGFR 05/16/21 09:43 52 L Weight: 232.6 lb [105.51 kg] (12/06/2021 11:40) BODY MASS INDEX - NO HEIGHTS FOUND Pager number: [phone] STAT orders MUST be called t o RADIOLOGY [phone] to speak to the appropriate production technician. Indications - Other: Opacification right chest, covid positive, lung cancer histo Report Status: Verified Date Reported: DEC 06, 2021 Date Verified: DEC 06, 2021 Biomass Plant Technician E-Sig:/ES/JESSIE CHENEY Report: CT THORAX W/O [...] REQUIRED Primary Interpreting Staff: JESSIE CHENEY, RADIOLOGIST (Biomass Plant Technician) Primary Interpreting Resident: PRINCE CHAMPION, Resident /BR Dec 06, 2021 11:58 AM CHEST SINGLE VIEW: JESSIE CHENEY LUCAS MEEK N [id number] -1950 [facility] Exm Date: DEC 06, 2021@11:58 Req Phys: JELANI SÁNCHEZ Pat Loc: [facility] ED DAYS M 1RD (Req'g Loc) Img Loc: XRAY (OOS) Service: Unknown (Case [id number] COMPLETE) CHEST SINGLE VIEW (RAD Detai led) CPT:57811 Proc Modifiers : PORTABLE EXAM Reason for Study: SOB, home covid test positive Clinical History: Report Status: Verified Date Reported: DEC 06, 2021 Date Verified: DEC 06, 2021 Biomass Plant Technician E-Sig:/ES/JESSIE CHENEY Report: Exam type: Chest [...] REQUIRED Primary Interpreting Staff: JESSIE CHENEY, RADIOLOGIST (Biomass Plant Technician) /TLC Pathology Reports: +/- 30 days [...] AM LR SURGICAL PATHOLOGY REPORT: STEFANY MILLER [facility] LOCAL TITLE: LR SURGICAL PATHOLOGY REPORT [facility] STANDARD TITLE: PATHOLOGY REPORT DATE OF NOTE: JAN 03, 2022@10:28:01 ENTRY DATE: JAN 03, 2022@10:28:01 AUTHOR: NIURKA MILLER EXP COSIGNER: URGENCY: STATUS: COMPLETED $APHDR Reporting Lab: [facility] [CLIA# [id number]] [address] [place] [address] - - - - - - [...] automatically d ocumented from SURGERY package case #[id number] Field (#32) PRINCIPAL PRE-OP DIAGNOSIS, (#.72) OTHER [...] automatically d ocumented from SURGERY package case #[id number] Field (#34) PRINCIPAL POST-OP DIAG, (#.74) OTHER [...] Label: Lucas Meek Paperwork: Lucas Meek Cassette: [id number];..;KALYANI;.;405;[id number] Specimen is labeled: ES bx Received in formalin are several pieces of pale boyd and brown tissue, 1.2 x 0.7 cm in aggregate. Submitted entirely in 1 cassette [id number];..;KALYANI;.;405;[id number] SAW 12/15/2021 Microscopic exam: *+* MODIFIED REPORT [...] in rendering the final pathologic diagnosis. [address] [address] CPT: 25610 /emely/ NIURKA Yeung MD Signed Jan 03, 2022@10:28 Performing Laboratory: Surgical Pathology Report Performed By: CAREY MONTOYA [facility] [CLIA# [id number]] [address] [place] [address] $FTR - - - - - [...] - - LUCAS MEEK STANDARD FORM 515 ID:[id number] SEX:M :1950 AGE: 71 LOC: SDM END PCP: Isatu Todd /emely/ NIURKA MILLER Staff Signed: 01/03/2022 10:28 Dec 21, 2021 11:46 AM LR SURGICAL PATHOLOGY [facility] T[facility]: LR SURGICAL PATHOLOGY REPORT [facility] STANDARD TITLE: PATHOLOGY REPORT DATE OF NOTE: DEC 21, 2021@11:46:59 ENTRY DATE: DEC 21, 2021@11:46:59 AUTHOR: NIURKA MILLER EXP COSIGNER: URGENCY: STATUS: COMPLETED $APHDR Reporting Lab: [facility] [CLIA# [id number]] [address] [place] [address] - - - - - - [...] automatically d ocumented from SURGERY package case #[id number] Field (#32) PRINCIPAL PRE-OP DIAGNOSIS, (#.72) OTHER [...] automatically d ocumented from SURGERY package case #[id number] Field (#34) PRINCIPAL POST-OP DIAG, (#.74) OTHER [...] Label: Lucas Meek Paperwork: Lucas Meek Cassette: [id number];..;KALYANI;.;405;[id number] Specimen is labeled: ES bx Received in formalin are several pieces of pale boyd and brown tissue, 1.2 x 0.7 cm in aggregate. Submitted entirely in 1 cassette [id number];..;KALYANI;.;405;[id number] SAW 12/15/2021 Microscopic exam: DIAGNOSIS: A. 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 Kendell long. TIARA Coombs was notified on 12/21/21. The attending pathologist who signature mansoor ears on this report has reviewed all diagnostic slides and has edited t he gross and/or microscopic portion of this report in rendering the final pathologic diagnosis. [address] [address] CPT: 60810 /emely/ NIURKA Yeung MD Signed Dec 21, 2021@11:46 Performing Laboratory: Surgical Pathology Report Performed By: [facility] [CLIA# [id number]] [address] [place] [address] $FTR - - - - - [...] - - LUCAS MEEK STANDARD FORM 515 ID:[id number] SEX:M :1950 AGE: 71 LOC: [facility] END PCP: Isatu Todd /emely/ NIURKA Yeung MD Signed: 12/21/2021 11:46 Dec 06, 2021 03:30 PM LR MI[facility]OLOGY [facility] Reporting Lab: [facility] [CLIA# [id number]] [address] [place] [address] Accession [UID]: [id number] [[id number]] Receiv ed: Dec 06, 2021@16:14 Collection sample: BLOOD CUL T BOTTLE(NIRMAL/AERO)Collection date: Dec 06, 2021 15:30 Site/Specimen: BLOOD Provider: JELANI SÁNCHEZ Comment on specimen: LAC Test(s) ordered: BLOOD CULTURE ANAEROBI C....... completed: Dec 12, 2021 06:18 * BACTERIOLOGY FINAL REPORT => Dec 12, 2021 06:1 8 TECH CODE: [id number] Bacteriology Remark(s): NO GROWTH IN 5 DAYS =--=--=--=--=--=--=--=--=--=--=--=--=--= --=--=--=--=--=--=--=--=--=--=--=--=-- Performing Laboratory: Bacteriology Report Performed By: [facility] [CLIA# [id number]] [address] [place] [address] Dec 06, 2021 03:30 PM LR MICROBIOLOGY REPORT: [facility] Reporting Lab: [facility] [CLIA# [id number]] [address] [place] [address] Accession [UID]: [id number] [[id number]] Receiv ed: Dec 06, 2021@16:14 Collection sample: BLOOD CUL T BOTTLE(NIRMAL/AERO)Collection date: Dec 06, 2021 15:30 Site/Specimen: BLOOD Provider: JELANI SÁNCHEZ Comment on specimen: LAC Test(s) ordered: BLOOD CULTURE AEROBIC. ........ completed: Dec 12, 2021 06:17 * BACTERIOLOGY FINAL REPORT => Dec 12, 2021 06:1 7 TECH CODE: [id number] Bacteriology Remark(s): NO GROWTH IN 5 DAYS =--=--=--=--=--=--=--=--=--=--=--=--=--= --=--=--=--=--=--=--=--=--=--=--=--=-- Performing Laboratory: Bacteriology Report Performed By: [facility] [CLIA# [id number]] [address] [place] [address]
--- OUTSIDE RECORDS SUMMARY | 2022-01-19 08:54 | XMS_ITS | Encounter Summary ---
:1950 Author Organization [facility] Address [address] [place] [id number] Support Name Relationship Address Phone YUSRA MEEK Unavailable [address] [place] [facility] [place] [address] YUSRA MEEK Unavailable [address] [place] [facility] [place] [address] CLAY MOSLEY Unavailable Unavailable SJ SANTACRUZ Unavailable [...] MEDICARE MEDICARE PART Jun 18, PART A [id number] DO KALYANI PATIENT (WNR) (M) A 2016 13A 1 UGLAS MEDICARE MEDICARE PART Jun 18, PART B [id number] MEEK DO PATIENT (WNR) (M) B 2016 13A 1 LAS MEDICARE MEDICARE PART Jun 18, PART A [id number] KALYANIDO PATIENT (WNR) (M) A 2017 VH81 2 LAS MEDICARE MEDICARE PART Jun 18, PART B [id number] DO KALYANI PATIENT (WNR) (M) B 2017 VH81 2 UGLAS UNITED MEDICARE MCR(Jun 18 [id number] Luz MEEK PATIENT HEALTHCARE ADVANTAGE NR) 2021 37 0 LAS [facility] (WNR) Selected Encounter This section includes the information on record at [place] for the Encounter. 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 Date/Time Primary/Secondary Diagnosis Name Provider Source Diagnosis Dec 14, 2021 PRIMARY Malignant MICHELLE ALLRED 08:49 AM neoplasm of A [facility] lower third of esophagus Plan of Treatment: Future [...] AM AMBULATORY - NONE [facility] Jan 06, 2022 02:00 PM AMBULATORY - REHAB MEDICINE [facility] [place] R [facility] Jan 10, 2022 11:30 AM [facility] - MEDICINE [facility] Jan 24, 2022 08:00 AM AMBULATORY - REHAB MEDICINE [place] R T [facility] Feb 21, 2022 10:00 AM [facility] Mar 21, 2022 10:30 AM AMBULATORY [...] data comes from all [place] treatment facilities. Test Date/Time Test Type Test Details Facility Name October 31, 2021 07:37 AM Consult Order [facility] CARE-EGD [facility] Cons Bliss [employer] Operator's Choice November 15, 2021 10:37 AM Consult Order [facility] CARE-PODIATRY Cons Bliss [employer] Operator's Choice Dec 06, 2021 12:52 PM Pharmacy - [place] Order [facility] Dec 06, 2021 03:24 PM Pharmacy [place] [facility] Dec 06, 2021 03:40 PM [facility]acy - [place] Order [facility] Dec 15, 2021 08:41 AM Consult Order [facility] [place] OUTPATIENT Cons [facility] [employer] Operator's Choice Jan 15, 2022 10:08 PM Consult Order [facility] CARE-PALLIATIVE CARE Cons [employer] Operator's Choice Lab Results: +/- 30 days [...] GLU,BUN,CREAT,LYTES,CA Speci men Type: PLASMA 06:43 AM [facility] Comment: Tests performed on Ring (405) SN:[id number] Ordering Provid er: ISATU TODD Report Released Date/Time: Dec 11, 2021 07:42 AM Reporting Lab: [facility] [address] [facility] [address] [address] Performing Lab: [place] [facility] [address] [address] [address] UREA NITROGEN 9 7-25 SODIUM 137 135-145 POTASSIUM 3.8 3.5-5.0 CHLORIDE 105 100-110 CARBON DIOXIDE 26 20-30 ANION GAP 6 4-16 GLUCOSE 102 H 65-100 CREATININE 0.64 0.5-1.5 CALCIUM 8.1 L 8.5-10.5 eGFR(CKD-EPI 2020) >90.0 >60 Dec 15, 2021 06:43 AM [facility] CBC PROFILE Sp ecimen Type: BLOOD No comment enter ed. Ordering Provid er: ISATU TODD Report Released Date/Time: Dec 10, 2021 07:22 AM Reporting Lab: [place] [facility] [address] [address] Performing Lab: [place] [facility] [address] [address] WBC 5.7 4.5-11.0 RBC 4.22 L 4.23-5.66 [...] SMITH CYTOGENETIC Specimen Type: ESOPHAGUS 02:59 PM [facility] FISH([facility]) Comment: ~For T est: CYTOGENETIC FISH([facility]) ~FISH HER 2 NUE, FFPE See full report in [employer] Image display viewer/tab#LAB-Reference Ordering Provid er: NIURKA MILLER Report Released Date/Time: Dec 21, 2021 12:11 PM Reporting Lab: [facility] [address] [address] Performing Lab: [facility] CYTOGENETIC FISH([facility]) comment Dec 14, 2021 [facility] P4 GLU,BUN,CREAT,LYTES,CA Speci men Type: PLASMA 06:27 AM [facility] Comment: Tests performed on Ring (405) SN:[id number] Ordering Provid er: ISATU TODD Report Released Date/Time: Dec 11, 2021 07:42 AM Reporting Lab: [facility] [address] [address] Performing Lab: [facility] [address] [address] UREA NITROGEN 10 7-25 SODIUM 137 135-145 [...] Reporting Lab: [facility] [address] [address] Performing Lab: [facility] [address] [address] WBC 6.0 4.5-11.0 RBC 4.29 4.23-5.66 HGB [...] GLU,BUN,CREAT,LYTES,CA Speci men Type: PLASMA 06:34 AM [facility] Comment: Tests performed on Ring (405) SN:[id number] Ordering Provid er: ISATU TODD Report Released Date/Time: Dec 11, 2021 07:42 AM Reporting Lab: [facility] [address] [address] Performing Lab: [facility] [address] [address] UREA NITROGEN 12 7-25 SODIUM 136 135-145 [...] 2021 07:22 AM Reporting Lab: [facility] [address] [address] Performing Lab: [facility] [address] [address] WBC 5.6 4.5-11.0 RBC 4.28 4.23-5.66 HGB [...] GLU,BUN,CREAT,LYTES,CA Speci men Type: PLASMA 06:21 AM [facility] Comment: Tests performed on Ring (405) SN:[id number] Ordering Provid er: ISATU TODD Report Released Date/Time: Dec 11, 2021 07:42 AM Reporting Lab: [facility] [address] [address] Performing Lab: [facility] [address] [address] UREA NITROGEN 11 7-25 SODIUM 139 135-145 POTASSIUM 4.1 3.5-5.0 CHLORIDE 107 100-110 CARBON DIOXIDE 24 20-30 ANION GAP 8 4-16 GLUCOSE 110 H 65-100 CREATININE 0.70 0.5-1.5 CALCIUM 8.3 L 8.5-10.5 eGFR(CKD-EPI 2020) >90.0 >60 Dec 12, 2021 06:21 AM [facility] CBC PROFILE Sp ecimen Type: BLOOD No comment enter ed. Ordering Provid er: ISATU TODD Report Released Date/Time: Dec 10, 2021 07:22 AM Reporting Lab: [facility] [address] [address] Performing Lab: [facility] [address] [address] WBC 5.5 4.5-11.0 RBC 4.37 4.23-5.66 HGB [...] Type: PLASMA Comment: Testin g Performed on Ring (405) SN:[id number] Ordering Provid er: ISATU TODD Report Released Date/Time: Dec 12, 2021 08:24 AM Reporting Lab: [place] [facility] [address] [address] Performing Lab: [place] [facility] [address] [address] MAGNESIUM 1.8 1.6-2.6 Dec 12, 2021 06:00 AM [place] [employer] [facility] PHOSPHORUS Sp ecimen Type: PLASMA Comment: Testin g Performed on Ring (405) SN:[id number] Ordering Provid er: ISATU TODD Report Released Date/Time: Dec 12, 2021 08:24 AM Reporting Lab: [place] [facility] [address] [address] Performing Lab: [place] [facility] [address] [address] PHOSPHORUS 3.1 2.5-5.0 Dec 11, 2021 06:15 AM [place] [facility] ELECTROLYTES Sp ecimen Type: PLASMA Comment: Tests performed on Ring (405) SN:[id number] Ordering Provid er: ISATU TODD Report Released Date/Time: Dec 10, 2021 07:22 AM Reporting Lab: [facility] [address] [address] Performing Lab: [facility] [address] [address] SODIUM 137 135-145 POTASSIUM 4.3 3.5-5.0 CHLORIDE 108 100-110 CARBON DIOXIDE 20 20-30 ANION GAP 9 4-16 Dec 11, 2021 06:15 AM [facility] CBC PROFILE Sp ecimen Type: BLOOD Comment: Result s checked Ordering Provid er: ISATU TODD Report Released Date/Time: Dec 10, 2021 07:22 AM Reporting Lab: [facility] [address] [address] Performing Lab: [facility] [address] [address] WBC 5.8 4.5-11.0 RBC 4.37 4.23-5.66 HGB [...] ecimen Type: PLASMA Comment: Tests performed on Ring (405) SN:[id number] Results checked Ordering Provid er: ISATU TODD Report Released Date/Time: Dec 11, 2021 07:44 AM Reporting Lab: [place] [facility] [address] [place] [facility] [place] [address] Performing Lab: [place] [facility] [address] [place] [facility] [place] [address] PHOSPHORUS 3.0 2.5-5.0 Dec 10, 2021 08:05 AM [place] [facility] MAGNESIUM Sp ecimen Type: PLASMA Comment: [place] [id number] on Dec 10, 2021@08:31 Tests performed on Pham Ocean Forwarder (405) SN:[id number] Ordering Provid er: ISATU TODD Report Released Date/Time: Dec 10, 2021 07:22 AM Reporting Lab: [place] [facility] [address] [place] [facility] [place] [address] Performing Lab: [place] [facility] [address] [place] [facility] [place] [address] MAGNESIUM 1.7 1.6-2.6 Dec 10, 2021 08:05 AM [place] [facility] PHOSPHORUS Sp ecimen Type: PLASMA Comment: [place] [id number] on Dec 10, 2021@08:31 Tests performed on Pham Applied BioCode (405) SN:[id number] Ordering Provid er: ISATU TODD Report Released Date/Time: Dec 10, 2021 07:22 AM Reporting Lab: [place] [facility] [address] [place] [facility] [place] [address] Performing Lab: [place] [facility] [address] [place] [facility] [place] [address] PHOSPHORUS 1.8 L 2.5-5.0 Dec 10, 2021 08:05 AM [place] UREA NITROGEN Specimen Type: PLASMA [facility] Comment: [place] [id number] on Dec 10, 2021@08:31 Tests performed on Pham [employer] BioCode (405) SN:[id number] Ordering Provid er: ISATU TODD Report Released Date/Time: Dec 10, 2021 07:22 AM Reporting Lab: [place] [facility] [address] [place] [facility] [place] [address] Performing Lab: [place] [facility] [address] [place] [facility] [place] [address] UREA NITROGEN 8 7-25 Dec 10, 2021 08:05 AM [place] [facility] CALCIUM Sp ecimen Type: PLASMA Comment: [place] [id number] on Dec 10, 2021@08:31 Tests performed on Ring (405) SN:[id number] Ordering Provid er: ISATU TODD Report Released Date/Time: Dec 10, 2021 07:22 AM Reporting Lab: [place] [facility] [address] [address] Performing Lab: [place] [facility] [address] [address] CALCIUM 8.3 L 8.5-10.5 Dec 10, 2021 08:05 AM [place] [facility] GLUCOSE Sp ecimen Type: PLASMA Comment: [place] [id number] on Dec 10, 2021@08:31 Tests performed on Ring (405) SN:[id number] Ordering Provid er: ISATU TODD Report Released Date/Time: Dec 10, 2021 07:22 AM Reporting Lab: [place] [facility] [address] [facility] [address] Performing Lab: [place] [facility] [address] [address] GLUCOSE 144 H 65-100 Dec 10, 2021 08:05 AM [place] [facility] ELECTROLYTES Sp ecimen Type: PLASMA Comment: [place] [id number] on Dec 10, 2021@08:31 Tests performed on Ring (405) SN:[id number] Ordering Provid er: ISATU TODD Report Released Date/Time: Dec 10, 2021 07:22 AM Reporting Lab: [place] [facility] [address] [place] [facility] [place] [address] Performing Lab: [place] [facility] [address] [address] SODIUM 139 135-145 POTASSIUM 3.7 3.5-5.0 CHLORIDE 107 100-110 CARBON DIOXIDE 24 20-30 ANION GAP 8 4-16 Dec 10, 2021 08:05 [place] CREATININE WITH eGFR Specime n Type: PLASMA AM [facility] PANEL Comment: [place] [id number] on Dec 10, 2021@08:31 Tests performed on Ring (405) SN:[id number] Ordering Provid er: ISATU TODD Report Released Date/Time: Dec 10, 2021 07:22 AM Reporting Lab: [facility] [address] [address] Performing Lab: [facility] [address] [address] CREATININE 0.78 0.5-1.5 eGFR(CKD-EPI 2020) >90.0 >60 Dec 10, 2021 08:05 AM [facility] CBC PROFILE Sp ecimen Type: BLOOD No comment enter ed. Ordering Provid er: ISATU TODD Report Released Date/Time: Dec 10, 2021 07:22 AM Reporting Lab: [facility] [address] [address] Performing Lab: [facility] [address] [address] WBC 7.0 4.5-11.0 RBC 4.54 4.23-5.66 HGB [...] 0.00 0-0 Dec 09, 2021 06:46 AM [facility] MAGNESIUM Sp ecimen Type: PLASMA Comment: Tests performed on Ring (405) SN:[id number] Ordering Provid er: ISATU TODD Report Released Date/Time: Dec 08, 2021 10:23 AM Reporting Lab: [facility] [address] [address] Performing Lab: [place] [facility] [address] [address] MAGNESIUM 1.6 1.6-2.6 Dec 09, 2021 [place] P4 GLU,BUN,CREAT,LYTES,CA Speci men Type: PLASMA 06:46 AM [facility] Comment: Tests performed on Ring (405) SN:[id number] Ordering Provid er: ISATU TODD Report Released Date/Time: Dec 08, 2021 05:00 PM Reporting Lab: [facility] [address] [address] Performing Lab: [facility] [address] [facility] [address] UREA NITROGEN 6 L 7-25 SODIUM 134 L 135-145 POTASSIUM 3.7 3.5-5.0 CHLORIDE 103 100-110 CARBON DIOXIDE 23 20-30 ANION GAP 8 4-16 GLUCOSE 112 H 65-100 CREATININE 0.70 0.5-1.5 CALCIUM 8.1 L 8.5-10.5 eGFR(CKD-EPI 2020) >90.0 >60 Dec 09, 2021 06:46 AM [place] [facility] CBC PROFILE Sp ecimen Type: BLOOD No comment enter ed. Ordering Provid er: ISATU TODD Report Released Date/Time: Dec 08, 2021 05:00 PM Reporting Lab: [place] [facility] [address] [facility] [address] Performing Lab: [place] [facility] [address] [address] WBC 7.1 4.5-11.0 RBC 4.40 4.23-5.66 HGB [...] Type: PLASMA Comment: Testin g Performed on Ring (405) SN:[id number] Ordering Provid er: ISATU TODD Report Released Date/Time: Dec 07, 2021 10:32 AM Reporting Lab: [facility] [address] [address] Performing Lab: [facility] [address] [facility] [address] MAGNESIUM 1.5 L 1.6-2.6 Dec 08, 2021 [facility] P4 GLU,BUN,CREAT,LYTES,CA Speci men Type: PLASMA 06:39 AM [facility] Comment: Testin g Performed on Ring (405) SN:[id number] Ordering Provid er: ISATU TODD Report Released Date/Time: Dec 07, 2021 10:32 AM Reporting Lab: [facility] [address] [address] Performing Lab: [facility] [address] [facility] [address] UREA NITROGEN 6 L 7-25 SODIUM 136 135-145 POTASSIUM 3.3 L 3.5-5.0 CHLORIDE 104 100-110 CARBON DIOXIDE 22 20-30 ANION GAP 10 4-16 GLUCOSE 133 H 65-100 CREATININE 0.76 0.5-1.5 CALCIUM 8.4 L 8.5-10.5 eGFR(CKD-EPI 2020) >90.0 >60 Dec 08, 2021 06:39 AM [facility] CBC PROFILE Sp ecimen Type: BLOOD No comment enter ed. Ordering Provid er: ISATU TODD Report Released Date/Time: Dec 07, 2021 10:32 AM Reporting Lab: [facility] [address] [address] Performing Lab: [facility] [address] [address] WBC 8.4 4.5-11.0 RBC 4.75 4.23-5.66 HGB [...] 0-0 Dec 07, 2021 06:42 [facility] LIVER PROFILE Specimen Typ e: PLASMA AM [facility] Comment: Tests performed on Ring (405 SN:[id number] Ordering Provid er: PORFIRIO WALTERS Report Released Date/Time: Dec 06, 2021 06:57 PM Reporting Lab: [facility] [address] [facility] [address] Performing Lab: [place] [facility] [address] [address] PROTEIN, TOTAL 5.7 L 6.0-8.5 ALBUMIN 2.4 L 3.2-5.0 BILIRUBIN, TOTAL 0.4 0.2-1.2 ALKALINE PHOSPHATASE 109 40-150 ALT(SGPT) 10 7-52 AST(SGOT) 15 5-34 FIB-4 SCORE 1.92 <2.67 Dec 07, 2021 [place] P4 GLU,BUN,CREAT,LYTES,CA Speci men Type: PLASMA 06:42 AM [facility] Comment: Tests performed on Ring (405) SN:[id number] Ordering Provid er: PORFIRIO WALTERS Report Released Date/Time: Dec 06, 2021 06:57 PM Reporting Lab: [facility] [address] [address] Performing Lab: [facility] [address] UREA NITROGEN 9 7-25 SODIUM 135 135-145 POTASSIUM 3.5 3.5-5.0 CHLORIDE 103 100-110 CARBON DIOXIDE 22 20-30 ANION GAP 10 4-16 GLUCOSE 92 65-100 CREATININE 0.73 0.5-1.5 CALCIUM 8.0 L 8.5-10.5 eGFR(CKD-EPI 2020) >90.0 >60 Dec 07, 2021 06:42 AM [place] CBC PROFILE Specimen Type: BLOOD [facility] No comment enter ed. Ordering Provid er: PORFIRIO WALTERS Report Released Date/Time: Dec 06, 2021 06:57 PM Reporting Lab: [place] [facility] [address] [address] Performing Lab: [place] [facility] [address] [facility] [address] WBC 5.7 4.5-11.0 RBC 4.15 L 4.23-5.66 [...] [facility] %) AUTOMATED Comment: Tests performed on Ring (405) SN:[id number] Ordering Provid er: ISATU TODD Report Released Date/Time: Dec 07, 2021 10:28 AM Reporting Lab: [place] [facility] [address] [address] Performing Lab: [place] [facility] [address] [address] RETICULOCYTES (%) AUTOMATED 1.23 0. 6-2.0 RETICULOCYTES (ABS) AUTOMATED 0.052 0.030-0.090 Dec 06, 2021 09:45 [place] MRSA SURVL NARES Specimen Ty pe: NARES PM [facility] DNA No comment enter ed. Ordering Provid er: ALVARO VARGHESE Report Released Date/Time: Dec 07, 2021 02:20 AM Reporting Lab: [place] [facility] [address] [facility] [address] Performing Lab: [place] [facility] [address] [address] MRSA SURVL NARES DNA NEGATIVE NEGATIVE Dec 06, 2021 06:00 [place] URINALYSIS W/REFLEX TO Speci men Type: URINE PM [facility] CULTURE No comment enter ed. Ordering Provid er: JELANI SÁNCHEZ Report Released Date/Time: Dec 06, 2021 11:57 AM Reporting Lab: [facility] [address] [address] Performing Lab: [facility] [address] [address] URINE COLOR Arlin YELLOW SPECIFIC GRAVITY 1.029 [...] 21, R[place] VARIANT Comment: https://www.cdc.gov/coronavirus/2019-ncov/cases-updates/variant- surveillance/variant-info.html The [employer] SARS CoV 2 [employer] Research Assay-GX is a next-generation sequencing (NGS) assa 2021 [facility] SEQUENCING y that determine s the complete genome sequence of the SARS-CoV-2 virus. The assay contains variant-tolerant primers to broaden and improve the coverage for variant detection and increase the sensitivity 12:00 [facility] PNL() of the panel to enable detection from lower viral titer samples. The assay is run on the [employer] Sequencer, which performs automated library preparation, sequencing, analysis, and reporting. PM The sequence an alysis includes determination of viral phylogenetic lineage by comparison to the reference strain Wuhan-Hu-1, GenBank: [id number]. Sequence determination may not be possible owing [...] and its performance characteristics determined by the [facility] Molecular Diagnostics Laboratory, which is certified under the Clinical Laboratory Improveme nt Amendments (C MARCO) as qualified to perform high complexity clinical laboratory testing. This test is validated for clinical use at [facility] and should not be regarded as investigational or for research. The FDA does not require this test to go through premarket FDA review, and therefore it has not been cleared or approved by the FDA. This report was reviewed and approved by the on-service pathologist. Ordering Provid er: JELANI SÁNCHEZ Report Released Date/Time: Dec 06, 2021 01:13 PM Reporting Lab: [place] [facility] [address] [address] Performing Lab: [facility] [address] [address] SARS-CoV-2 CLADE() 22C (OMICRON) SARS-CoV-2 LINEAGE() BA.2.12.1 Dec 06, 2021 12:00 [facility] COVID-19 AG SCREEN Specimen Type: NASAL CAVITY PM [facility] PANEL BINAX(405) Comment: Testi ng Performed By: Mike Briscoe Ordering Provid er: JELANI SÁNCHEZ Report Released Date/Time: Dec 08, 2021 08:23 AM Reporting Lab: [place] [facility] [address] [place] [facility] [place] [address] Performing Lab: [place] [facility] [address] [address] COVID-19 AG SCRN(wrj BINAX) POSITIVE HH NE G Dec 06, 2021 12:00 PM [place] [facility] TROPONIN II Sp ecimen Type: PLASMA Comment: Tests performed on Pham Applied BioCode (405) SN:[id number] Ordering Provid er: JELANI SÁNCHEZ Report Released Date/Time: Dec 06, 2021 11:57 AM Reporting Lab: [place] [facility] [address] [place] [facility] [place] [address] Performing Lab: [place] [facility] [address] [facility] [facility] [address] TROPONIN II 0.03 0.00-0.29 Dec 06, 2021 12:00 PM [place] [facility] LIVER PROFILE Sp ecimen Type: PLASMA Comment: Testin g Performed on Pham Ocean Forwarder (405) SN:[id number] Ordering Provid er: JELANI SÁNCHEZ Report Released Date/Time: Dec 06, 2021 11:57 AM Reporting Lab: [facility] [address] [address] Performing Lab: [facility] [address] [facility] [address] PROTEIN, TOTAL 6.6 6.0-8.5 ALBUMIN 2.8 L 3.2-5.0 BILIRUBIN, TOTAL 0.6 0.2-1.2 ALKALINE PHOSPHATASE 134 40-150 ALT(SGPT) 13 7-52 AST(SGOT) 18 5-34 FIB-4 SCORE 1.94 <2.67 Dec 06, 2021 12:00 PM [facility] BNP(P) Sp ecimen Type: PLASMA Comment: Tests performed on Pham Ocean Forwarder (405) SN:[id number] Ordering Provid er: JELANI SÁNCHEZ Report Released Date/Time: Dec 06, 2021 11:57 AM Reporting Lab: [facility] [address] [facility] [facility] [address] Performing Lab: [facility] [address] [address] BNP(P) 224.8 H 10-100 Dec 06, 2021 [facility] P4 GLU,BUN,CREAT,LYTES,CA Speci men Type: PLASMA 12:00 PM [facility] Comment: Testin g Performed on Pham Ocean Forwarder (405) SN:[id number] Ordering Provid er: JELANI SÁNCHEZ Report Released Date/Time: Dec 06, 2021 11:57 AM Reporting Lab[facility] [address] [address] Performing Lab: [facility] [address] [address] UREA NITROGEN 13 7-25 SODIUM 138 135-145 POTASSIUM 3.8 3.5-5.0 CHLORIDE 103 100-110 CARBON DIOXIDE 23 20-30 ANION GAP 12 4-16 GLUCOSE 105 H 65-100 CREATININE 0.90 0.5-1.5 CALCIUM 8.7 8.5-10.5 eGFR(CKD-EPI 2020) >90.0 >60 Dec 06, 2021 [facility] COVID-19+FLU/RSV DIAGNOSTIC Spe cimen Type: NASOPHARYNX 12:00 PM [facility] PANEL(405) Comment: Tests performed on [employer]rod[employer] Genexpert (405) Critical results called to and read back by: ALESHIA WILKINSON RN 12/06/21 @ 1312 Ordering Provid er: JELANI SÁNCHEZ Report Released Date/Time: Dec 06, 2021 11:57 AM Reporting Lab: [facility] [address] [address] Performing Lab: [facility] [address] [address] FLU A(PCR) NEGATIVE NEGATIVE FLU B(PCR) NEGATIVE NEGATIVE RSV(PCR) NEGATIVE NEGATIVE COVID-19([id number]) DETECTED HH NO T DETECTED Dec 06, 2021 12:00 PM [facility] CBC PROFILE Sp ecimen Type: BLOOD No comment enter ed. Ordering Provid er: JELANI SÁNCHEZ Report Released Date/Time: Dec 06, 2021 11:57 AM Reporting Lab: [facility] [address] [address] Performing Lab: [facility] [address] [address] WBC 7.2 4.5-11.0 RBC 4.86 4.23-5.66 HGB [...] WHITE 2021 08:47 /min mm[Hg] RIVER PM [facility] Dec 14, 0 WHITE 2021 03:14 RIVER PM T [facility] Dec 14, 97.1 F 91 139/68 20 /min 99 % WHITE 2021 02:23 /min mm[Hg] [facility] [facility] Dec 14, 0 WHITE 2021 10:15 [place] [facility] Dec 14, 97.5 F 94 138/68 18 /min 97 % 0 [place] 2021 10:13 /min mm[Hg] [facility] Social History: Smoking Status (Most current) [...] took place. Date/Time Smoking Status/Tobacco Use Comment [facility] Apr 01, 2020 01:16 PM QUIT [...] AM QUIT TOBACCO USE 1-7 YEARS AGO [facility] May 25, 2016 11:53 PM QUIT TOBACCO USE IN PAST YEAR CAREY DOYLE [facility] May 23, 2016 06:57 PM QUIT TOBACCO USE > 7 YEARS AGO CAREY DOYLE [facility] May 19, 2016 03:55 PM QUIT TOBACCO USE IN PAST YEAR CAREY DOYLE [facility] May 19, 2016 10:29 AM QUIT TOBACCO USE 1-7 YEARS AGO CAREY DOYLE [facility] May 01, 2016 07:26 PM QUIT TOBACCO USE IN PAST YEAR CAREY DOYLE [facility] May 01, 2016 03:11 PM QUIT TOBACCO USE IN PAST YEAR CAREY DOYLE [facility] May 01, 2016 11:19 AM QUIT TOBACCO USE IN PAST YEAR CAREY DOYLE [facility] Mar 16, 2016 12:50 PM V1-PT DECLINES REF TO TOBACCO CAREY DOYLE [facility] CESS PRGM Mar 16, 2016 12:50 PM V1-PT THINKING ABOUT QUIT CAREY DOYLE [facility] TOBACCO USE Aug 12, 2015 08:48 AM CURRENT SMOKER CAREY Yates [facility] Radiology Reports: +/- 30 days of [...] W/WO CONTRAST: MARYELLEN LONG Gorge MEEKLUCAS N [id number] -1950 [facility] Exm Date: DEC 13, 2021@12:57 Req Phys: ISATU TODD Loc: OP Unknown/0 12-15-2021@13:20 Img Loc: MRI IMAGING (OOS) Service: [facility]IC[facility] (Case [id number] COMPLETE) MRI ABDOMEN W/WO CONTRAST (M RI Detailed) CPT:58421 Reason for Study: further characterization of a [...] new lyphadenopathy REQUESTING MD: Isatu Todd PAGER: [phone] PHONE: [phone] Weight: 232.2 lb [105.32 kg] (12/12/2021 05:00) [...] patient will need to arrange for a spike driver to take him/her home after the [...] 15, 2021 Date Verified: DEC 15, 2021 Subcontract Administrator E-Sig:/ES/MARYELLEN LONG Report: MRI ABDOMEN W/WO [...] MALIGNANCY Primary Interpreting Staff: Staff AMELIA THOMAS (Subcontract Administrator) / Dec 10, 2021 09:[address] ABDOMEN & PELVIS: RAD[facility]OLOGY,OU[facility]IDE [facility] LUCAS MEEK N [id number] -1950 SERVICE [facility] Ex Date: DEC 10, 2021@09:30 Req Phys: ISATU TODD E Josseline Loc: 1S MED/12-10@10:57 Img Loc: CT SCAN (OOS) Service: [facility] (Case [id number] COMPLETE) CT ABD & PELVIS WITHOUT CONT RAST (CT Detailed) CPT:86931 Reason for Study: 71 yo male with [...] INDEX - NO HEIGHTS FOUND Pager number: [phone] STAT orders MUST be call ed to RADIOLOGY [phone] to speak to the appropriate medic technician. Report Status: Verified Date Reported: DEC 10, 2021 Date Verified: DEC 10, 2021 Subcontract Administrator E-Sig: Report: EXAM: CT abdomen and [...] ph nodes. READING PHYSICIAN: Ramone Munoz D.O. -[phone] [id number] 12/10/2021 10:55 EDT [facility] [employer] [phone] (For Medical Practitioner Use Only ) [address] [facility] [facility] [address] [place] [address] Attention Patients / Veterans: If you have ques tions or concerns about these test results, please contact your o rdering provider or primary care team. Primary Diagnostic Code: SIGNIFICANT ABNORMALIT Y, ATTN NEEDED Primary Interpreting Staff: RADIOLOGY,OUTSIDE SERVICE, Staff Physician / Dec 09, 2021 07:34 AM BASW (MODIFIED): [facility]ENEY [facility] N [id number] -1950 M [facility] Exm Date: DEC 09, 2021@07:34 Req Phys: ISATU TODD Loc: 1S MED/12-09@11:26 Img Loc: XRAY (OOS) Service: [facility] MEDICINE (Case [id number] COMPLETE) BASW (MODIFIED) (EUNICE stephenson) CPT:09494 Contrast Media : Barium Reason for Study: dysphagia ?esophageal spasm Clinical History: Report Status: Verified Date Reported: DEC 09, 2021 Date Verified: DEC 09, 2021 Subcontract Administrator E-Sig:/ES/JESSIE CHENEY Report: BASW (MODIFIED) , [...] REQUIRED Primary Interpreting Staff: JESSIE CHENEY, RADIOLOGIST (Subcontract Administrator) /TLC Dec 06, 2021 12:[address] CHEST (INCLUDES ADRENALS): JESSIE CHENEY CAREY DOYLE T LUCAS MEEK N [id number] -1950 M [facility] Exm Date: DEC 06, 2021@12:59 Req Phys: JELANI SÁNCHEZ Pat Loc: [facility] ED DAYS M 1RD (Req'g Loc) Img Loc: CT SCAN (OOS) Service: Unknown (Case [id number] COMPLETE) CT THORAX W/O CONT (CT Detai led) CPT:74035 Reason for Study: Opacification right chest Clinical History: No contrast allergy BUN: 13 (12/06/21 12:00) CREATI: 0.90 (12/06/21 12:00) eGFR 05/16/21 09:43 52 L Weight: 232.6 lb [105.51 kg] (12/06/2021 11:40) BODY MASS INDEX - NO HEIGHTS FOUND Pager number: [phone] STAT orders MUST be called t o RADIOLOGY [phone] to speak to the appropriate medic technician. Indications - Other: Opacification right chest, covid positive, lung cancer histo Report Status: Verified Date Reported: DEC 06, 2021 Date Verified: DEC 06, 2021 Subcontract Administrator E-Sig:/ES/JESSIE CHENEY Report: CT THORAX W/O [...] left lung is clear. No pneumothorax. Cardiomediastinum, Maul, lymph nodes and soft t issues: Significant [...] REQUIRED Primary Interpreting Staff: JESSIE CHENEY, RADIOLOGIST (Subcontract Administrator) Primary Interpreting Resident: PRINCE CHAMPION, Resident /BR Dec 06, 2021 11:58 AM CHEST SINGLE VIEW: JESSIE CHENEYLUCAS N [id number] -1950 M [facility] Exm Date: DEC 06, 2021@11:58 Req Phys: JELANI SÁNCHEZ Loc: [facility] ED DAYS M 1RD (Req'g Loc) Img Loc: XRAY (OOS) Service: Unknown (Case [id number] COMPLETE) CHEST SINGLE VIEW (RAD Detai led) CPT:45221 Proc Modifiers : PORTABLE EXAM Reason for Study: SOB, home covid test positive Clinical History: Report Status: Verified Date Reported: DEC 06, 2021 Date Verified: DEC 06, 2021 Subcontract Administrator E-Sig:/ES/JESSIE CHENEY Report: Exam type: Chest [...] MILLER LOCAL TITLE: LR SURGICAL PATHOLOGY REPORT [facility] STANDARD TITLE: PATHOLOGY REPORT DATE OF NOTE: JAN 03, 2022@10:28:01 ENTRY DATE: JAN 03, 2022@10:28:01 AUTHOR: NIURKA MILLER EXP COSIGNER: URGENCY: STATUS: COMPLETED $APHDR Reporting Lab: CAREY MONTOYA [facility] [CLIA# [id number]] [address] [place] [facility] [place] [address] - - - - - - [...] automatically d ocumented from SURGERY package case #[id number] Field (#32) PRINCIPAL PRE-OP DIAGNOSIS, (#.72) OTHER [...] automatically d ocumented from SURGERY package case #[id number] Field (#34) PRINCIPAL POST-OP DIAG, (#.74) OTHER POSTOP DIAGS Esophageal cancer Surgeon/physician: MICHELLE ALLRED Attending Surgeon: Yamel Hill MD =-=-=-=-=-=-=-=-=-=-=-=-=-=- =-=-=-=-=-=-=-=-=-=-=-=-=-=-=-=-=-=-=-=-=-=-=-=-=-= [...] Label: Lucas Meek Paperwork: Lucas Meek Cassette: [id number];..;KALYANI;.;405;[id number] Specimen is labeled: ES bx Received in formalin are several pieces of pale boyd and brown tissue, 1.2 x 0.7 cm in aggregate. Submitted entirely in 1 cassette [id number];..;KALYANI;.;405;[id number] SAW 12/15/2021 Microscopic exam: *+* MODIFIED REPORT *+* (Last modified: JAN 03, 2022@09:30:20 typed by NIURKA WADDELL) DIAGNOSIS: A. 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 Kendell long. TIARA Coombs was notified on 12/21/21. Modified on 01/03/22 to include report from [facility] stating that tumor is NEGATIVE for her2/ matheus amplification. The attending pathologist who signature mansoor ears on this report has reviewed all diagnostic slides and has edited t he gross and/or microscopic portion of this report in rendering the final pathologic diagnosis. [address] [place] [address] CPT: 84985 /emely/ NIURKA Yeung MD Signed Jan 03, 2022@10:28 Performing Laboratory: Surgical Pathology Report Performed By: [facility] [CLIA# [id number]] [address] [place] [address] $FTR - - - - - [...] - - LUCAS MEEK STANDARD FORM 515 ID:[id number] SEX:M :1950 AGE: 71 LOC: SDM END PCP: Isatu Todd /emely/ NIURKA Yeung MD Signed: 01/03/2022 10:28 Dec 21, 2021 11:46 AM LR SURGICAL PATHOLOGY REPORT: STEFANY MILLER [facility] LOCAL TITLE: LR SURGICAL PATHOLOGY REPORT [facility] STANDARD TITLE: PATHOLOGY REPORT DATE OF NOTE: DEC 21, 2021@11:46:59 ENTRY DATE: DEC 21, 2021@11:46:59 AUTHOR: NIURKA MILLER EXP COSIGNER: URGENCY: STATUS: COMPLETED $APHDR Reporting Lab: [facility] [CLIA# [id number]] [address] [place] [address] - - - - - - [...] Submitted by: ISATU E TODD Date obtained: Marizol rojas 2021 14:59 [...] automatically d ocumented from SURGERY package case #[id number] Field (#32) PRINCIPAL PRE-OP DIAGNOSIS, (#.72) OTHER [...] automatically d ocumented from SURGERY package case #[id number] Field (#34) PRINCIPAL POST-OP DIAG, (#.74) OTHER POSTOP DIAGS Esophageal cancer Surgeon/physician: MICHELLE ALLRED Attending Surgeon: Yamel Hill MD =-=-=-=-=-=-=-=-=-=-=-=-=-=- =-=-=-=-=-=-=-=-=-=-=-=-=-=-=-=-=-=-=-=-=-=-=-=-=-= [...] - - - GROSS DESCRIPTION: Name Label: Pierre Meekmiguelangel Rojas Paperwork: Meek Lucas Rojas Cassette: [id number];..;KALYANI;.;274;[id number] Specimen is labeled: ES bx Received in formalin are several pieces of pale boyd and brown tissue, 1.2 x 0.7 cm in aggregate. Submitted entirely in 1 cassette [id number];..;KALYANI;.;536;[id number] SAW 12/15/2021 Microscopic exam: DIAGNOSIS: A. 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 Kendell long. TIARA Coombs was notified on 12/21/21. The attending pathologist who signature mansoor ears on this report has reviewed all diagnostic slides and has edited t he gross and/or microscopic portion of this report in rendering the final pathologic diagnosis. [address] [address] CPT: 91730 /emely/ NIURKA Yeung MD Signed Dec 21, 2021@11:46 Performing Laboratory: Surgical Pathology Report Performed By: [facility] [CLIA# [id number]] [address] [place] [address] $FTR - - - - - [...] - - LUCAS MEEK STANDARD FORM 515 ID:[id number] SEX:M :1950 AGE: 71 LOC: SDM END PCP: Isatu Todd /charmaine Yeung MD Signed: 12/21/2021 11:46 Dec 06, 2021 03:30 PM LR MICROBIOLOGY REPORT: [facility] Reporting Lab: [facility] [CLIA# [id number]] [address] [place] [address] Accession [UID]: [id number] [[id number]] Receiv ed: Dec 06, 2021@16:14 Collection sample: BLOOD CUL T BOTTLE(NIRMAL/AERO)Collection date: Dec 06, 2021 15:30 Site/Specimen: BLOOD Provider: JELANI SÁNCHEZ Comment on specimen: LAC Test(s) ordered: BLOOD CULTURE ANAEROBI C....... completed: Dec 12, 2021 06:18 * BACTERIOLOGY FINAL REPORT => Dec 12, 2021 06:1 8 TECH CODE: [id number] Bacteriology Remark(s): NO GROWTH IN 5 DAYS =--=--=--=--=--=--=--=--=--=--=--=--=--= --=--=--=--=--=--=--=--=--=--=--=--=-- Performing Laboratory: Bacteriology Report Performed By: [facility] [CLIA# [id number]] [address] [place] [address] Dec 06, 2021 03:30 PM LR MICROBIOLOGY REPORT: [facility] Reporting Lab: [facility] [CLIA# [id number]] [address] [place] [address] Accession [UID]: [id number] [[id number]] Receiv ed: Dec 06, 2021@16:14 Collection sample: BLOOD CUL T BOTTLE(NIRMAL/AERO)Collection date: Dec 06, 2021 15:30 Site/Specimen: BLOOD Provider: JELANI SÁNCHEZ Comment on specimen: LAC Test(s) ordered: BLOOD CULTURE AEROBIC. ........ completed: Dec 12, 2021 06:17 * BACTERIOLOGY FINAL REPORT => Dec 12, 2021 06:1 7 TECH CODE: 67210 Bacteriology Remark(s): NO GROWTH IN 5 DAYS =--=--=--=--=--=--=--=--=--=--=--=--=--= --=--=--=--=--=--=--=--=--=--=--=--=-- Performing Laboratory: Bacteriology Report Performed By: CAREY MONTOYA [facility] [CLIA# [id number]] [address] [place] [address] Encounter Notes: All associated encounter notes This section contains the clinical notes associated to the Encounter. Date/Time Encounter Note(s) Provider Source Dec 14, 2021 08:46 GASTROENTEROLOGY PROCEDURE REPORT: CAREY MONTOYA LOCAL TITLE: EGD Procedure Result/Gastroenterol ogy [facility] STANDARD TITLE: GASTROENTEROLOGY PROCEDURE REPOR T DATE OF NOTE: DEC 14, 2021@08:46:30 ENTRY DATE: DEC 14, 2021@08:46:30 AUTHOR: CLINICAL,DEVICE PRO EXP COSIGNER: URGENCY: STATUS: COMPLETED EGD Procedure Result/Gastroenterology Has A DDENDA DOCUMENT IN VISTA IMAGING SEE FULL REPORT IN VISTA IMAGING SIGNATURE NOT REQUIRED SEE SIGNATURE IN VISTA IMAGING (ENDOSOFT EGD) AUTO-INSTRUMENT DIAGNOSIS Procedure: ESOPHAGOGASTRODUODENOSCOPY EGD Release Status: Released Off-Line Verified Date Verified: Dec 14, 2021 EGD Procedure Report Patient Name: LUCAS MEEK : 1950 Date/Time: 12-14-2021 / 8:00 AM Physician: Yamel Hill MD Fellow: Michelle Allred Nurse: Bebeto Ackerman: Elidia Stark INDICATIONS FOR EXAM: Esophageal cancer. PROCEDURE PERFORMED: EGD - biopsy DESCRIPTION OF PROCEDURE: Patient's medications, aller gies, past medical, surgical, social and family histories were reviewed and updated as appr opriate. A discussion of informed consent was had with the patient and/or the patient's family prior to the procedure, including sedation. The alternatives, benefits and risks of the pr ocedure including but not limited to perforation, hemorrhage, infection, adverse drug reaction and aspiration were discussed PROCEDURE TECHNIQUE: Informed consent was obtaine d for the procedure, including sedation. Risks of perforation, hemorrhage, infection, adver se drug reaction and aspiration were discussed. The patient was placed in position. Based on the pre-procedure assessment, including review of the patient's medical history, medications , allergies, and review of systems, the patient had been deemed to be an appropriate candidate for conscious sedation; the patient was therefore sedated with the medications listed. The marilyn ent was monitored continuously with pulse oximetry, blood pressure monitoring, and direct observations. The [id number] was in troduced and passed without difficulty to second part [...] 30 cm. - Upon reaching the 30cm mar k and extending to the GEJ at 40 cm, the esophagus was grossly irregular with luminal narrowing and stricturing. T he mucosa of the right side of the esophagus appeared denuded, friable, and ulcerated with bleeding appreciated from mi nor scope contact. The left portion of the esophagus demonstrated long, linear, cords of grossly irregular tissue (almost hav ing the appearance of varices), but did not compress with insufflation. These same cords (occuping the left lateral p ortion of the esophagus) were firm/hard when biopsied. Multiple biopsies were taken of the distal esophagus. - The gastric body was regular with healthy appe aring ruggae - Duodenum unremarkable DIAGNOSIS: - 10 cm segment (30-40 cm) o f grossly irregular esophagus, concerning for malignancy RECOMMENDATIONS: - Path pending - [facility] for [facility] ca re This note was electronically signed on 0 12/14/2021 at 8:48 AM by Yamel Hill MD Administrative Closure: 12/14/2021 by: Clinical,Device Proxy Service 01/10/2022 ADDENDUM STATUS: COMPLETED *+* MODIFIED REPORT *+* (Last modified: JAN 03, 2022@09:30:20 typed by NIURKA WADDELL) DIAGNOSIS: A. 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 Kendell long. TIARA Coombs was notified on 12/21/21. Modified on 01/03/22 to include report from [facility] stating that tumor is NEGATIVE for her2/ matheus amplification. The attending pathologist who signature mansoor ears on this report has reviewed all diagnostic slides and has edited t he gross and/or microscopic portion of this report in rendering the final pathologic diagnosis. [facility] [address] [facility] [place] [address] CPT: 75287 /es/ Michelle Allred MD Gastroenterology Fellow Signed: 01/10/2022 16:37 /es/ YAMEL HILL Staff Cosigned: 01/11/2022 09:18 Dec 14, 2021 07:48 GASTROENTEROLOGY NOTE: YAMEL HILLT LOCAL TITLE: GI PREPROCEDURE NOTE [facility] STANDARD TITLE: GASTROENTEROLOGY NOTE DATE OF NOTE: DEC 14, 2021@07:48 ENTRY DATE: DEC 14, 2021@07:48:10 AUTHOR: YAMEL HILL EXP COSIGNER: URGENCY: STATUS: COMPLETED Pre-Procedure History and Physical Examination Procedure: EGD Indication: wt loss, odynophagia I have reviewed the H&P within 30 days, and note no changes.Nov History:71 year old patient with ~80 lbs wt loss 2/2 decreased po intake 2/2 early satiety, lost mid chest odynophagia. feels much better since being admitted. No sob/cp. 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 (SCT 9859393440497825) Osteoarthritis (SCT 140282478) Psoriasis (SCT 37 05127) Spinal stenosis of lumbar region (SCT 18Low back pain (SCT 346297285) Joint pain (SCT 94528626) Primary malignant neop lasm of lung (SCT 00841528) Morbid obesity (SCT 897447502) Benign essential hypertension (SCT 6918915) Chronic obstructive lung disease (SCT 13 Medications Active Inpatient Medications (exclud ing Supplies): Active Inpatient Medications Status 1) ACETAMINOPHEN TAB [...] 13) SERTRALINE TAB 150MG PO QD ACTIVE Allergies LISINOPRIL EXAM: GENERAL:145/80 (12/14/2021 07:22) 98 (12/14/2021 07:22), A&O x3, NAD HEENT: Airway examined, oropharynx clear Mallampati class: 2 LUNGS: Clear to auscultation HEART: Regular rate and rhythm, normal S1, S2 ABDOMEN: Normal bowel sounds, soft, non-distende d, non-tender EXTREMITIES: No edema A/P Proceed with the planned procedure. ASA class 3 Sedation plan: Sedation by Anesthesia Risks and benefits of the procedure explained to patient. Consent signed. /emely/ YAMEL Yeung MD Signed: 12/14/2021 07:50
--- OUTSIDE RECORDS SUMMARY | 2022-01-19 08:55 | XMS_ITS ---
DAILY HOSPITALIZATION DATA [facility] Encounter Summary Created on:December 14, 2021 Patient:LUCAS MEEK Sex:Male :1950 Author Organization [facility] Address [address] [place] [id number] Support Name Relationship Address Phone YUSRA MEEK Unavailable [address] [place] [address] YUSRA MEEK Unavailable [address] [place] [facility] [facility] [place] [address] CLAY MOSLEY Unavailable Unavailable SJ SANTACRUZ Unavailable [...] MEDICARE MEDICARE PART Jun 18, PART A [id number] DO KALYANI PATIENT (WNR) (M) A 2016 13A 1 UGLAS MEDICARE MEDICARE PART Jun 18, PART A [id number] DO KALYANI PATIENT (WNR) (M) A 2017 VH81 2 LAS MEDICARE MEDICARE PART Jun 18, PART B [id number] DO KALYANI PATIENT (WNR) (M) B 2016 13A 1 UGLAS MEDICARE MEDICARE PART Jun 18, PART B [id number] DO KALYANI PATIENT (WNR) (M) B 2017 VH81 2 UGLAS UNITED MEDICARE MCR(Jun 18 [id number] Luz MEEK PATIENT HEALTHCARE ADVANTAGE NR) 2021 37 0 [facility] (WNR) Selected Encounter This section includes the information on record at [place] for the Encounter. Date/Time Encounter Type Encounter Description Reason Provider Source Dec 14, 2021 08:49 Inpatient Visit DAILY HOSPITALIZATION DATA AM [facility] Encounter Template Text not used by [place] [...] [place] [facility] Jan 10, 2022 11:30 AM AMBULATORY - [facility]ICINE [facility] Jan 24, 2022 08:00 AM [place] [facility] Feb 21, 2022 10:00 AM AMBULATORY [place] [facility] Mar 21, 2022 10:30 [...] The data comes from all [place] treatment [facility]. Test Date/Time Test Type Test Details Facility Name October 31, 2021 07:37 AM Consult Order COMMUNITY CARE-EGD [facility] Cons Head Sugar Reprocess Operator's Choice November 15, 2021 10:37 AM Consult Order [facility] CARE-PODIATRY Cons Head Sugar Reprocess Operator's Choice Dec 06, 2021 12:52 PM Pharmacy - [place] Infusion Order [facility] Dec 06, 2021 03:24 PM Pharmacy - [place] Order [facility] Dec 06, 2021 03:40 PM Pharmacy [place] Order [facility] Dec 15, 2021 08:41 AM Consult Order SPEECH PATHOLOGY [place] OUTPAT[place] Cons [facility] Head Sugar Reprocess Operator's Choice Jan 15, 2022 10:08 PM Consult Order [facility] CARE-PALLIATIVE CARE Cons Head Sugar Reprocess Operator's Choice Lab Results: +/- 30 days [...] Reference Range Comment Dec 15, 2021 [place] P4 GLU,BUN,CREAT,LYTES,CA Speci men Type: PLASMA 06:43 AM [facility] Comment: Tests performed on [employer] (405) SN:[id number] Ordering Provid er: ISATU TODD Report Released Date/Time: Dec 11, 2021 07:42 AM Reporting Lab: [facility] T [facility] [address] [facility] [address] Performing Lab: [facility] [address] [facility] [address] UREA NITROGEN 9 7-25 SODIUM 137 135-145 [...] T [facility] [address] [facility] [address] Performing Lab: [facility] [address] [facility] [address] WBC 5.7 4.5-11.0 RBC 4.22 L 4.23-5.66 [...] ABSOLUTE NRBC 0.00 0-0 Dec 14, 2021 [facility] CYTOGENETIC Specimen Type: ESOPHAGUS 02:59 PM VAOC FISH([facility] Comment: ~For T est: CYTOGENETIC FISH([facility]) ~FISH HER 2 NUE, FFPE See full report in [email or web address] Image display viewer/tab#LAB-Reference Ordering Provid er: NIURKA MILLER Report Released Date/Time: Dec 21, 2021 12:11 PM Reporting Lab: [facility] [address] [facility] [address] Performing Lab: [facility] CYTOGENETIC FISH([facility]) comment Dec 14, 2021 [facility] P4 GLU,BUN,CREAT,LYTES,CA Speci men Type: PLASMA 06:27 AM [facility] Comment: Tests performed on [employer] (405) SN:[id number] Ordering Provid er: ISATU TODD Report Released Date/Time: Dec 11, 2021 07:42 AM Reporting Lab: [facility] [address] [facility] [address] Performing Lab: [facility] [address] [facility] [address] UREA NITROGEN 10 7-25 SODIUM 137 135-145 [...] [facility] [address] [facility] [address] Performing Lab: [facility] [address] [facility] [address] WBC 6.0 4.5-11.0 RBC 4.29 4.23-5.66 HGB [...] ABSOLUTE NRBC 0.00 0-0 Dec 13, 2021 [facility] P4 GLU,BUN,CREAT,LYTES,CA Speci men Type: PLASMA 06:34 AM [facility] Comment: Tests performed on [employer] (405) SN:[id number] Ordering Provid er: ISATU TODD Report Released Date/Time: Dec 11, 2021 07:42 AM Reporting Lab: [facility] [address] [facility] [address] Per[facility]: [facility] [address] [facility] [address] UREA NITROGEN 12 7-25 SODIUM 136 135-145 [...] [facility] [address] [facility] [address] Performing Lab: [facility] [address] [facility] [address] WBC 5.6 4.5-11.0 RBC 4.28 4.23-5.66 HGB [...] ABSOLUTE NRBC 0.00 0-0 Dec 12, 2021 [facility] P4 GLU,BUN,CREAT,LYTES,CA Speci men Type: PLASMA 06:21 AM [facility] Comment: Tests performed on [employer] (405) SN:[id number] Ordering Provid er: ISATU TODD Report Released Date/Time: Dec 11, 2021 07:42 AM Reporting Lab: [facility] [address] [facility] [address] Performing Lab: [facility] [address] [facility] [address] UREA NITROGEN 11 7-25 SODIUM 139 135-145 [...] 2021 07:22 AM Reporting Lab: [facility] [address] [facility] [address] Performing Lab: [facility] [address] [facility] [address] WBC 5.5 4.5-11.0 RBC 4.37 4.23-5.66 HGB [...] 0.00 0-0 Dec 12, 2021 06:00 AM [employer] [facility] MAGNESIUM Sp ecimen Type: PLASMA Comment: Testin g Performed on [employer] (405) SN:[id number] Ordering Provid er: ISATU TODD Report Released Date/Time: Dec 12, 2021 08:24 AM Reporting Lab: [place] [facility] [address] [facility] [address] Performing Lab: [employer] [place] [facility] [address] [facility] [address] MAGNESIUM 1.8 1.6-2.6 Dec 12, 2021 06:00 AM [employer] PHOSPHORUS Sp ecimen Type: PLASMA Comment: Testin g Performed on [employer] (405) SN:[id number] Ordering Provid er: ISATU TODD Report Released Date/Time: Dec 12, 2021 08:24 AM Reporting Lab: [place] [employer] [facility] [address] [facility] [address] Performing Lab: [place] [employer] [address] [facility] [address] PHOSPHORUS 3.1 2.5-5.0 Dec 11, 2021 06:15 AM [employer] [place] OptiniT LinkdexMR[facility] ELECTROLYTES Sp ecimen Type: PLASMA Comment: Tests performed on [employer] (405) SN:[id number] Ordering Provid er: ISATU TODD Report Released Date/Time: Dec 10, 2021 07:22 AM Reporting Lab: [place] [employer] [facility] [address] [facility] [address] Performing Lab: [place] [employer] [facility] [address] [facility] [address] SODIUM 137 135-145 POTASSIUM 4.3 3.5-5.0 CHLORIDE 108 100-110 CARBON DIOXIDE 20 20-30 ANION GAP 9 4-16 Dec 11, 2021 06:15 AM [place] [employer] [facility] CBC PROFILE Sp ecimen Type: BLOOD Comment: Result s checked Ordering Provid er: ISATU TODD Report Released Date/Time: Dec 10, 2021 07:22 AM Reporting Lab: [place] [employer]MEGAT [facility] [address] [facility] [address] Performing Lab: [place] [facility]ME[facility] [address] [facility] [address] WBC 5.8 4.5-11.0 RBC 4.37 4.23-5.66 HGB [...] ecimen Type: PLASMA Comment: Tests performed on [employer] (478) SN:[id number] Results checked Ordering Provid er: ISATU TODD Report Released Date/Time: Dec 11, 2021 07:44 AM Reporting Lab: [facility] [address] [facility] [address] Performing Lab: [place] OMEGAT [facility] [address] [facility] [address] PHOSPHORUS 3.0 2.5-5.0 Dec 10, 2021 08:05 AM [place] [facility] MAGNESIUM Sp ecimen Type: PLASMA Comment: [place] [id number] on Dec 10, 2021@08:31 Tests performed on [employer] (405) SN:[id number] Ordering Provid er: ISATU TODD Report Released Date/Time: Dec 10, 2021 07:22 AM Reporting Lab: [place] [facility] [address] [place] [facility] [place] [place] [address] Performing Lab: [place] [facility] [address] [place] [facility] [place] [place] [address] MAGNESIUM 1.7 1.6-2.6 Dec 10, 2021 08:05 AM [place] [facility] PHOSPHORUS Sp ecimen Type: PLASMA Comment: [place] [id number] on Dec 10, 2021@08:31 Tests performed on [employer] (405) SN:[id number] Ordering Provid er: ISATU TODD Report Released Date/Time: Dec 10, 2021 07:22 AM Reporting Lab: [place] [facility] [address] [place] [facility] [place] [place] [address] Performing Lab: [place] [facility] [address] [place] [facility] [place] [place] [address] PHOSPHORUS 1.8 L 2.5-5.0 Dec 10, 2021 08:05 AM [place] UREA NITROGEN Specimen Type: PLASMA [facility] Comment: [place] [id number] on Dec 10, 2021@08:31 Tests performed on [employer] (405) SN:[id number] Ordering Provid er: ISATU TODD Report Released Date/Time: Dec 10, 2021 07:22 AM Reporting Lab: [place] [facility] [address] [place] [facility] [place] [place] [address] Performing Lab: [place] [facility] [address] [place] [facility] [place] [address] UREA NITROGEN 8 7-25 Dec 10, 2021 08:05 AM [place] [facility] GLUCOSE Sp ecimen Type: PLASMA Comment: [place] [id number] on Dec 10, 2021@08:31 Tests performed on [employer] (405) SN:[id number] Ordering Provid er: SIATU TODD Report Released Date/Time: Dec 10, 2021 07:22 AM Reporting Lab: [place] [facility] [address] [facility] [address] Performing Lab: [place] [facility] [address] [facility] [address] GLUCOSE 144 H 65-100 Dec 10, 2021 08:05 AM [place] [facility] CALCIUM Sp ecimen Type: PLASMA Comment: [place] [id number] on Dec 10, 2021@08:31 Tests performed on [employer] (405) SN:[id number] Ordering Provid er: ISATU TODD Report Released Date/Time: Dec 10, 2021 07:22 AM Reporting Lab: [place] [facility] [address] [facility] [address] Performing Lab: [place] [facility] [address] [facility] [address] CALCIUM 8.3 L 8.5-10.5 Dec 10, 2021 08:05 AM [place] [facility] ELECTROLYTES Sp ecimen Type: PLASMA Comment: [place] [id number] on Dec 10, 2021@08:31 Tests performed on [employer] (405) SN:[id number] Ordering Provid er: ISATU TODD Report Released Date/Time: Dec 10, 2021 07:22 AM Reporting Lab: [place] [facility] [address] [facility] [address] Performing Lab: [place] [facility] [address] [facility] [address] SODIUM 139 135-145 POTASSIUM 3.7 3.5-5.0 CHLORIDE 107 100-110 CARBON DIOXIDE 24 20-30 ANION GAP 8 4-16 Dec 10, 2021 08:05 [place] CREATININE WITH eGFR Specime n Type: PLASMA AM [facility] PANEL Comment: [place] [id number] on Dec 10, 2021@08:31 Tests performed on [employer] (405) SN:[id number] Ordering Provid er: ISATU TODD Report Released Date/Time: Dec 10, 2021 07:22 AM Reporting Lab: [place] [facility] [address] [facility] [address] Performing Lab: [place] [facility] [address] [facility] [address] CREATININE 0.78 0.5-1.5 eGFR(CKD-EPI 2020) >90.0 >60 Dec 10, 2021 08:05 AM [facility] CBC PROFILE Sp ecimen Type: BLOOD No comment enter ed. Ordering Provid er: ISATU TODD Report Released Date/Time: Dec 10, 2021 07:22 AM Reporting Lab: [place] [facility] [address] [facility] [address] Performing Lab: [place] [facility] [facility] [address] [facility] [address] WBC 7.0 4.5-11.0 RBC 4.54 4.23-5.66 HGB [...] ecimen Type: PLASMA Comment: Tests performed on [employer] (688) SN:[id number] Ordering Provid er: ISATU TODD Report Released Date/Time: Dec 08, 2021 10:23 AM Reporting Lab: [facility] [address] [facility] [address] Performing Lab[facility] [address] [facility] [address] MAGNESIUM 1.6 1.6-2.6 Dec 09, 2021 [facility] P4 GLU,BUN,CREAT,LYTES,CA Speci men Type: PLASMA 06:46 AM [facility] Comment: Tests performed on [employer] (405) SN:[id number] Ordering Provid er: ISATU TODD Report Released Date/Time: Dec 08, 2021 05:00 PM Reporting Lab: [facility] [address] [facility] [address] Performing Lab: [facility] [address] [facility] [address] UREA NITROGEN 6 L 7-25 SODIUM 134 [...] [facility] [address] [facility] [address] Performing Lab: [facility] [address] [facility] [address] WBC 7.1 4.5-11.0 RBC 4.40 4.23-5.66 HGB [...] 0.00 0-0 Dec 08, 2021 06:39 AM [place] [email or web address] T [facility] MAGNESIUM Sp ecimen Type: PLASMA Comment: Testin g Performed on [employer] (405) SN:[id number] Ordering Provid er: ISATU TODD Report Released Date/Time: Dec 07, 2021 10:32 AM Reporting Lab: [facility] [address] [facility] [address] Performing Lab: [facility] [address] [facility] [address] MAGNESIUM 1.5 L 1.6-2.6 Dec 08, 2021 [place] [email or web address] T P4 GLU,BUN,CREAT,LYTES,CA Speci men Type: PLASMA 06:39 AM [facility] Comment: Testin g Performed on [employer] (405) SN:[id number] Ordering Provid er: ISATU TODD Report Released Date/Time: Dec 07, 2021 10:32 AM Reporting Lab: [employer] T [facility] [address] [facility] [address] Performing Lab: [facility] [address] [facility] [address] UREA NITROGEN 6 L 7-25 SODIUM 136 135-145 POTASSIUM 3.3 L 3.5-5.0 CHLORIDE 104 100-110 CARBON DIOXIDE 22 20-30 ANION GAP 10 4-16 GLUCOSE 133 H 65-100 CREATININE 0.76 0.5-1.5 CALCIUM 8.4 L 8.5-10.5 eGFR(CKD-EPI 2020) >90.0 >60 Dec 08, 2021 06:39 AM [place] [email or web address] T [facility] CBC PROFILE Sp ecimen Type: BLOOD No comment enter ed. Ordering Provid er: ISATU TODD Report Released Date/Time: Dec 07, 2021 10:32 AM Reporting Lab: [facility] [address] [facility] [address] Performing Lab: [facility] [address] [facility] WBC 8.4 [...] NRBC 0.00 0-0 Dec 07, 2021 06:42 [facility] LIVER PROFILE Specimen Typ e: PLASMA AM [facility] Comment: Tests performed on [employer] (405 SN:[id number] Ordering Provid er: PORFIRIO WALTERS Report Released Date/Time: Dec 06, 2021 06:57 PM Reporting Lab: [facility] [address] [facility] [address] Performing Lab: [facility] [address] [facility] [address] PROTEIN, TOTAL 5.7 L 6.0-8.5 ALBUMIN 2.4 L 3.2-5.0 BILIRUBIN, TOTAL 0.4 0.2-1.2 ALKALINE PHOSPHATASE 109 40-150 ALT(SGPT) 10 7-52 AST(SGOT) 15 5-34 FIB-4 SCORE 1.92 <2.67 Dec 07, 2021 [facility] P[facility] GLU,BUN,CREAT,LYTES,CA Speci men Type: PLASMA 06:42 AM [facility] Comment: Tests performed on [employer] (405) SN:[id number] Ordering Provid er: PORFIRIO WALTERS Report Released Date/Time: Dec 06, 2021 06:57 PM Reporting Lab: [place] [facility] [address] [facility] [address] Performing Lab: [place] [facility] [address] [facility] [address] UREA NITROGEN 9 7-25 SODIUM 135 135-145 POTASSIUM 3.5 3.5-5.0 CHLORIDE 103 100-110 CARBON DIOXIDE 22 20-30 ANION GAP 10 4-16 GLUCOSE 92 65-100 CREATININE 0.73 0.5-1.5 CALCIUM 8.0 L 8.5-10.5 eGFR(CKD-EPI 2020) >90.0 >60 Dec 07, 2021 06:42 AM [place] CBC PROFILE Specimen Type: BLOOD [facility] No comment enter ed. Ordering Provid er: PORFIRIO WALTERS Report Released Date/Time: Dec 06, 2021 06:57 PM Reporting Lab: [place] [facility] [address] [facility] [address] Performing Lab: [facility] [address] [facility] [address] WBC 5.7 4.5-11.0 RBC 4.15 L 4.23-5.66 [...] [facility] %) AUTOMATED Comment: Tests performed on [employer] (405) SN:[id number] Ordering Provid er: ISATU TODD Report Released Date/Time: Dec 07, 2021 10:28 AM Reporting Lab: [place] [facility] [address] [facility] [address] Performing Lab: [place] [facility] [address] [facility] [address] RETICULOCYTES (%) AUTOMATED 1.23 0. 6-2.0 RETICULOCYTES (ABS) AUTOMATED 0.052 0.030-0.090 Dec 06, 2021 09:45 [place] MRSA SURVL NARES Specimen Ty pe: NARES PM [facility] DNA No comment enter ed. Ordering Provid er: ALVARO VARGHESE Report Released Date/Time: Dec 07, 2021 02:20 AM Reporting Lab: [place] [facility] [address] [facility] [address] Performing Lab: [place] [facility] [address] [facility] [address] MRSA SURVL NARES DNA NEGATIVE NEGATIVE Dec 06, 2021 06:00 [place] URINALYSIS W/REFLEX TO Speci men Type: URINE PM [facility] CULTURE No comment enter ed. Ordering Provid er: JELANI SÁNCHEZ Report Released Date/Time: Dec 06, 2021 11:57 AM Reporting Lab: [place] [facility] [address] [facility] [address] Performing Lab: [place] [facility] [address] [facility] [address] URINE COLOR Arlin YELLOW SPECIFIC GRAVITY 1.029 [...] 21, [place]IANT Comment: https://www.cdc.gov/coronavirus/2019-ncov/cases-updates/variant- surveillance/variant-info.html The [employer] SARS CoV 2 [employer] Research Assay-GX is a next-generation sequencing (NGS) assa [facility] SEQUENCING y that determine s the complete genome sequence of the SARS-CoV-2 virus. The assay contains variant-tolerant primers to broaden and improve the coverage for variant detection and increase the sensitivity 12:00 [facility] PNL(WH) of the panel to enable detection from lower viral titer samples. The assay is run on the AmberWave Sequencer, which performs automated library preparation, sequencing, analysis, and reporting. PM The sequence an alysis includes determination of viral phylogenetic lineage by comparison to the reference strain Wuhan-Hu-1, GenBank: [id number]. Sequence determination may not be possible owing [...] Reporting Lab: [facility] [address] [facility] [address] Performing Lab: [facility] [address] [facility] [address] SARS-CoV-2 CLADE() 22C (OMICRON) SARS-CoV-2 LINEAGE() BA.2.12.1 Dec 06, 2021 12:00 [facility] COVID-19 AG SCREEN Specimen Type: NASAL CAVITY PM [facility] PANEL BINAX(405) Comment: Testi ng Performed By: Mike Briscoe Ordering Provid er: JELANI SÁNCHEZ Report Released Date/Time: Dec 08, 2021 08:23 AM Reporting Lab: [facility] [address] [facility] [address] Performing Lab: [facility] [address] [facility] [address] COVID-19 AG SCRN(wrj BINAX) POSITIVE HH NE G Dec 06, 2021 12:00 PM [facility] TROPONIN II Sp ecimen Type: PLASMA Comment: Tests performed on [employer] Rn (405) SN:[id number] Ordering Provid er: JELANI SÁNCHEZ Report Released Date/Time: Dec 06, 2021 11:57 AM Reporting Lab: [facility] [address] [place] [facility] [place] [place] [address] Performing Lab: [facility] [address] [facility] [address] TROPONIN II 0.03 0.00-0.29 Dec 06, 2021 12:00 PM [facility] LIVER PROFILE Sp ecimen Type: PLASMA Comment: Testin g Performed on [employer] Rn (405) SN:[id number] Ordering Provid er: JELANI SÁNCHEZ Report Released Date/Time: Dec 06, 2021 11:57 AM Reporting Lab: [facility] [address] [facility] [address] Performing Lab: [facility] [address] [facility] [address] PROTEIN, TOTAL 6.6 6.0-8.5 ALBUMIN 2.8 L 3.2-5.0 BILIRUBIN, TOTAL 0.6 0.2-1.2 ALKALINE PHOSPHATASE 134 40-150 ALT(SGPT) 13 7-52 AST(SGOT) 18 5-34 FIB-4 SCORE 1.94 <2.67 Dec 06, 2021 [place] P4 GLU,BUN,CREAT,LYTES,CA Speci men Type: PLASMA 12:00 PM [facility] Comment: Testin g Performed on [employer] Rn (405) SN:[id number] Ordering Provid er: JELANI SÁNCHEZ Report Released Date/Time: Dec 06, 2021 11:57 AM Reporting Lab: [place] [facility] [address] [facility] [address] Performing Lab: [place] [facility] [address] [facility] [address] UREA NITROGEN 13 7-25 SODIUM 138 135-145 POTASSIUM 3.8 3.5-5.0 CHLORIDE 103 100-110 CARBON DIOXIDE 23 20-30 ANION GAP 12 4-16 GLUCOSE 105 H 65-100 CREATININE 0.90 0.5-1.5 CALCIUM 8.7 8.5-10.5 eGFR(CKD-EPI 2020) >90.0 >60 Dec 06, 2021 12:00 PM [facility] BNP(P) Sp ecimen Type: PLASMA Comment: Tests performed on [employer] Rn (405) SN:[id number] Ordering Provid er: JELANI SÁNCHEZ Report Released Date/Time: Dec 06, 2021 11:57 AM Reporting Lab: [place] [facility] [address] [facility] [address] Performing Lab: [place] [facility] [address] [facility] [address] BNP(P) 224.8 H 10-100 Dec 06, 2021 [place] COVID-19+FLU/RSV DIAGNOSTIC Spe cimen Type: NASOPHARYNX 12:00 PM [facility] PANEL(405) Comment: Tests performed on [employer] (405) Critical results called to and read back by: ALESHIA WILKINSON RN 12/06/21 @ 1312 Ordering Provid er: JELANI SÁNCHEZ Report Released Date/Time: Dec 06, 2021 11:57 AM Reporting Lab: [facility] [address] [facility] [address] Performing Lab: [place] [facility] [address] [facility] [address] FLU A(PCR) NEGATIVE NEGATIVE FLU B(PCR) NEGATIVE NEGATIVE RSV(PCR) NEGATIVE NEGATIVE COVID-19([id number]) DETECTED HH NO T DETECTED Dec 06, 2021 12:00 [facility] Sp ecimen Type: BLOOD No comment enter ed. Ordering Provid er: JELANI SÁNCHEZ Report Released Date/Time: Dec 06, 2021 11:57 AM Reporting Lab: [facility] [address] [facility] [address] Performing Lab: [facility] [address] [facility] [address] WBC 7.2 4.5-11.0 RBC 4.86 4.23-5.66 HGB [...] WHITE 2021 08:47 /min mm[Hg] RIVER PM [facility] Dec 14, 0 2021 03:14 RIVER PM T [facility] Dec 14, 97.1 F 91 139/68 20 /min 99 % WHITE 2021 02:23 /min mm[Hg] RIVER PM T [facility] Dec 14, 0 WHITE 2021 10:15 RIVER AM T [facility] Dec 14, 97.5 F 94 138/68 18 /min 97 % 0 WHITE 2021 10:13 /min mm[Hg] RIVER AM [facility] Social History: Smoking Status (Most current) [...] took place. Date/Time Smoking Status/Tobacco Use Comment [facility] Apr 01, 2020 01:16 PM QUIT TOBACCO USE 1-7 YEARS AGO [facility] Mar 24, 2020 03:00 PM QUIT TOBACCO USE 1-7 YEARS AGO [facility] Feb 21, 2019 04:11 PM QUIT TOBACCO USE 1-7 YEARS AGO [facility] Feb 20, 2019 03:38 PM QUIT TOBACCO USE 1-7 YEARS AGO [facility] Feb 03, 2019 09:50 AM QUIT TOBACCO USE 1-7 YEARS AGO [facility] May 25, 2016 11:53 PM QUIT TOBACCO USE IN PAST YEAR [facility] May 23, 2016 06:57 PM QUIT TOBACCO USE > 7 YEARS AGO [facility] May 19, 2016 03:55 PM QUIT TOBACCO USE IN PAST YEAR [facility] May 19, 2016 10:29 AM QUIT TOBACCO USE 1-7 YEARS AGO [facility] [place] [facility] [facility] May 01, 2016 07:26 PM QUIT TOBACCO USE IN PAST YEAR [facility] DOYLE [facility] May 01, 2016 03:11 PM QUIT TOBACCO USE IN PAST YEAR [facility]AREY DOYLE [facility] May 01, 2016 11:19 AM QUIT TOBACCO USE IN PAST YEAR [facility]AREY DOYLE [facility] Mar 16, 2016 12:50 PM V1-PT DECLINES REF TO TOBACCO CAREY DOYLE [facility] CESS [facility] Mar 16, 2016 12:50 PM V1-PT THINKING ABOUT QUIT CAREY DOYLE [facility] TOBACCO USE Aug 12, 2015 [...] W/WO CONTRAST: MARYELLEN LONG LUCAS LARES N [id number] -1950 [facility] Exm Date: DEC 13, 2021@12:57 Req Phys: ISATU TODD Loc: OP Unknown/0 12-15-2021@13:20 Img Loc: MRI IMAGING (OOS) Service: [facility] MEDICINE (Case [id number] COMPLETE) MRI ABDOMEN W/WO CONTRAST (M RI Detailed) CPT:01813 Reason for Study: further characterization of a [...] new lyphadenopathy REQUESTING MD: Isatu Todd PAGER: [phone] PHONE: [phone] Weight: 232.2 lb [105.32 kg] (12/12/2021 05:00) [...] patient will need to arrange for a stake driver to take him/her home after the [...] 15, 2021 Date Verified: DEC 15, 2021 Block Bolter Mule Operator E-Sig:/ES/MARYELLEN LONG Report: MRI ABDOMEN W/WO [...] MALIGNANCY Primary Interpreting Staff: Staff AMELIA THOMAS (Block Bolter Mule Operator) / Dec 10, 2021 09:[address] ABDOMEN & PELVIS: RADIOLOGY,OUTSIDE [facility] [place] LUCAS MEEK N [id number] -1950 M SERVICE [facility] Exm Date: DEC 10, 2021@09:30 Req Phys: ISATU TODD Loc: 1S [facility]/12-10@10:57 Img Loc: CT SCAN (OOS) Service: [facility] (Case [id number] COMPLETE) CT ABD & PELVIS WITHOUT CONT RAST (CT Detailed) CPT:59649 Reason for Study: 71 yo male with [...] RADIOLOGY [phone] to speak to the appropriate insulator technician. Report Status: Verified Date Reported: DEC 10, 2021 Date Verified: DEC 10, 2021 Block Bolter Mule Operator E-Sig: Report: EXAM: CT abdomen and [...] ph nodes. READING PHYSICIAN: Ramone Munoz D.O. [phone] 12/10/2021 10:55 EDT [facility] National Teleradiology Program [phone] (For Medical Practitioner Use Only ) [address] [facility] [facility] [address] [place] [address] Attention Patients / Veterans: If you have ques tions or concerns about these test results, please contact your o rdering provider or primary care team. Primary Diagnostic Code: SIGNIFICANT ABNORMALIT Y, ATTN NEEDED Primary Interpreting Staff: RADIOLOGY,OUTSIDE SERVICE, Staff Physician / Dec 09, 2021 07:34 AM BASW (MODIFIED): JESSIE CHENEY [facility] LUCAS MEEK N [id number] -1950 [facility] Exm Date: DEC 09, 2021@07:34 Req Phys: ISATU TODD Loc: 1S MED/12-09@11:26 Img Loc: XRAY (OOS) Service: [facility] MEDICINE (Case [id number] COMPLETE) BASW (MODIFIED) (RAD Detaile d) CPT:82791 Contrast Media : Barium Reason for Study: dysphagia ?esophageal spasm Clinical History: Report Status: Verified Date Reported: DEC 09, 2021 Date Verified: DEC 09, 2021 Block Bolter Mule Operator E-Sig:/ES/JESSIE CHENEY Report: DELISA (MODIFIED) , [...] REQUIRED Primary Interpreting Staff: JESSIE CHENEY, RADIOLOGIST (Block Bolter Mule Operator) /TLC Dec 06, 2021 12:[address] CHEST (INCLUDES ADRENALS): JESSIE CHENEY [facility] LUCAS MEEK N [id number] -1950 [facility] Exm Date: DEC 06, 2021@12:59 Req Phys: JELANI SÁNCHEZ Loc: [facility] ED DAYS M 1RD (Req'g Loc) Img Loc: CT SCAN (OOS) Service: Unknown (Case [id number] COMPLETE) CT THORAX W/O CONT (CT Detai led) CPT:77203 Reason for Study: Opacification right chest Clinical History: No contrast allergy BUN: 13 (12/06/21 12:00) CREATI: 0.90 (12/06/21 12:00) eGFR 05/16/21 09:43 52 L Weight: 232.6 lb [105.51 kg] (12/06/2021 11:40) BODY MASS INDEX - NO HEIGHTS FOUND Pager number: [phone] STAT orders MUST be called t o RADIOLOGY [phone] to speak to the appropriate insulator technician. Indications - Other: Opacification right chest, covid positive, lung cancer histo Report Status: Verified Date Reported: DEC 06, 2021 Date Verified: DEC 06, 2021 Block Bolter Mule Operator E-Sig:/ES/JESSIE CHENEY Report: CT THORAX W/O [...] REQUIRED Primary Interpreting Staff: JESSIE CHENEY, RADIOLOGIST (Block Bolter Mule Operator) Primary Interpreting Resident: PRINCE CHAMPION, Resident /BR Dec 06, 2021 11:58 AM CHEST SINGLE VIEW: JESSIE CHENEY LUCAS MEEK N [id number] -1950 M [facility] Exm Date: DEC 06, 2021@11:58 Req Phys: JELANI SÁNCHEZ Pat Loc: [facility] ED DAYS M 1RD (Req'g Loc) Img Loc: XRAY (OOS) Service: Unknown (Case [id number] COMPLETE) CHEST SINGLE VIEW (RAD Detai led) CPT:20199 Proc Modifiers : PORTABLE EXAM Reason for Study: SOB, home covid test positive Clinical History: Report Status: Verified Date Reported: DEC 06, 2021 Date Verified: DEC 06, 2021 Block Bolter Mule Operator E-Sig:/ES/JESSIE CHENEY Report: Exam type: Chest [...] REQUIRED Primary Interpreting Staff: JESSIE CHENEY, RADIOLOGIST (Block Bolter Mule Operator) /TLC Pathology Reports: +/- 30 days [...] AM LR SURGICAL PATHOLOGY REPORT: STEFANY MILLER [facility] LOCAL TITLE: LR SURGICAL PATHOLOGY REPORT [facility] STANDARD TITLE: PATHOLOGY REPORT DATE OF NOTE: JAN 03, 2022@10:28:01 ENTRY DATE: JAN 03, 2022@10:28:01 AUTHOR: NIURKA MILLER EXP COSIGNER: URGENCY: STATUS: COMPLETED $APHDR Reporting Lab: [facility] [CLIA# [id number]] [address] [place] [address] - - - - - - [...] automatically d ocumented from SURGERY package case #[id number] Field (#32) PRINCIPAL PRE-OP DIAGNOSIS, (#.72) OTHER [...] automatically d ocumented from SURGERY package case #[id number] Field (#34) PRINCIPAL POST-OP DIAG, (#.74) OTHER [...] Label: Lucas Meek Paperwork: Lucas Meek Cassette: [id number];..;KALYANI;.;405;[id number] Specimen is labeled: ES bx Received in formalin are several pieces of pale boyd and brown tissue, 1.2 x 0.7 cm in aggregate. Submitted entirely in 1 cassette [id number];..;KALYANI;.;405;[id number] SAW 12/15/2021 Microscopic exam: *+* MODIFIED REPORT *+* (Last modified: JAN 03, 2022@09:30:20 typed by NIURKA WADDELL) DIAGNOSIS: A. 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 Kendell long. TIARA Coombs was notified on 12/21/21. Modified on 01/03/22 to include report from [facility] stating that tumor is NEGATIVE for her2/ matheus amplification. The attending pathologist who signature mansoor ears on this report has reviewed all diagnostic slides and has edited t he gross and/or microscopic portion of this report in rendering the final pathologic diagnosis. [address] [address] CPT: 76052 /emely/ NIURKA Yeung MD Signed Jan 03, 2022@10:28 Performing Laboratory: Surgical Pathology Report Performed By: CAREY MONTOYA [facility] [CLIA# [id number]] [address] [place] [address] $FTR - - - - - [...] - - LUCAS MEEK STANDARD FORM 515 ID:[id number] SEX:M :1950 AGE: 71 LOC: SDM END PCP: Isatu Todd /emely/ NIURKA MILLER Staff Signed: 01/03/2022 10:28 Dec 21, 2021 11:46 AM LR SURGICAL PATHOLOGY [facility] LOC[facility] TITLE: LR SURGICAL PATHOLOGY REPORT [facility] STANDARD TITLE: PATHOLOGY REPORT DATE OF NOTE: DEC 21, 2021@11:46:59 ENTRY DATE: DEC 21, 2021@11:46:59 AUTHOR: NIURKA MILLER EXP COSIGNER: URGENCY: STATUS: COMPLETED $APHDR Reporting Lab: [facility] [CLIA# [id number]] [address] [place] [address] - - - - - - [...] automatically d ocumented from SURGERY package case #[id number] Field (#32) PRINCIPAL PRE-OP DIAGNOSIS, (#.72) OTHER [...] automatically d ocumented from SURGERY package case #[id number] Field (#34) PRINCIPAL POST-OP DIAG, (#.74) OTHER [...] Label: Lucas Meek Paperwork: Lucas Meek Cassette: [id number];..;KALYANI;.;405;[id number] Specimen is labeled: ES bx Received in formalin are several pieces of pale boyd and brown tissue, 1.2 x 0.7 cm in aggregate. Submitted entirely in 1 cassette [id number];..;KALYANI;.;405;[id number] SAW 12/15/2021 Microscopic exam: DIAGNOSIS: A. 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 Kendell long. TIARA Coombs was notified on 12/21/21. The attending pathologist who signature mansoor ears on this report has reviewed all diagnostic slides and has edited t he gross and/or microscopic portion of this report in rendering the final pathologic diagnosis. [address] [address] CPT: 59405 /emely/ NIURKA Yeung MD Signed Dec 21, 2021@11:46 Performing Laboratory: Surgical Pathology Report Performed By: [facility] [CLIA# [id number]] [address] [place] [address] $FTR - - - - - [...] - - LUCAS MEEK STANDARD FORM 515 ID:[id number] SEX:M :1950 AGE: 71 LOC: [facility] END PCP: Isatu Todd /emely/ NIURKA Yeung MD Signed: 12/21/2021 11:46 Dec 06, 2021 03:30 PM LR MICRO[facility]OLOGY [facility] Reporting Lab: [facility] [CLIA# [id number]] [address] [place] [address] Accession [UID]: [id number] [[id number]] Receiv ed: Dec 06, 2021@16:14 Collection sample: BLOOD CUL T BOTTLE(NIRMAL/AERO)Collection date: Dec 06, 2021 15:30 Site/Specimen: BLOOD Provider: JELANI SÁNCHEZ Comment on specimen: LAC Test(s) ordered: BLOOD CULTURE ANAEROBI C....... completed: Dec 12, 2021 06:18 * BACTERIOLOGY FINAL REPORT => Dec 12, 2021 06:1 8 TECH CODE: [id number] Bacteriology Remark(s): NO GROWTH IN 5 DAYS =--=--=--=--=--=--=--=--=--=--=--=--=--= --=--=--=--=--=--=--=--=--=--=--=--=-- Performing Laboratory: Bacteriology Report Performed By: [facility] [CLIA# [id number]] [address] [place] [address] Dec 06, 2021 03:30 PM LR MICROBIOLOGY REPORT: [facility] Reporting Lab: [facility] [CLIA# [id number]] [address] [place] [address] Accession [UID]: [id number] [[id number]] Receiv ed: Dec 06, 2021@16:14 Collection sample: BLOOD CUL T BOTTLE(NIRMAL/AERO)Collection date: Dec 06, 2021 15:30 Site/Specimen: BLOOD Provider: JELANI SÁNCHEZ Comment on specimen: LAC Test(s) ordered: BLOOD CULTURE AEROBIC. ........ completed: Dec 12, 2021 06:17 * BACTERIOLOGY FINAL REPORT => Dec 12, 2021 06:1 7 TECH CODE: [id number] Bacteriology Remark(s): NO GROWTH IN 5 DAYS =--=--=--=--=--=--=--=--=--=--=--=--=--= --=--=--=--=--=--=--=--=--=--=--=--=-- Performing Laboratory: Bacteriology Report Performed By: [facility] [CLIA# [id number]] [address] [place] [address]
--- OUTSIDE RECORDS SUMMARY | 2022-01-19 08:55 | XMS_ITS | Encounter Summary ---
:1950 Author Organization [facility] Address [address] [place] [id number] Support Name Relationship Address Phone YUSRA MEEK Unavailable [address] [facility] [place] [place] [address] YUSRA MEEK Unavailable [address] [facility] [place] [place] [address] CLAY MOSLEY Unavailable Unavailable SJ SANTACRUZ Unavailable [...] MEDICARE MEDICARE PART Jun 18, PART A [id number] DO KALYANI PATIENT (WNR) (M) A 2016 13A 1 UGLAS MEDICARE MEDICARE PART Jun 18, PART B [id number] MEEK DO PATIENT (WNR) (M) B 2017 13A 1 LAS MEDICARE MEDICARE PART Jun 18, PART B [id number] KALYANIDO PATIENT (WNR) (M) B 2017 VH81 2 LAS MEDICARE MEDICARE PART Jun 18, PART A [id number] DO KALYANI PATIENT (WNR) (M) A 2017 VH81 2 UGLAS UNITED MEDICARE MCR(Jun 18 [id number] Luz MEEK PATIENT HEALTHCARE ADVANTAGE NR) 2021 37 0 LAS [facility] (WNR) Selected Encounter This section includes the information on record at [place] for the Encounter. Date/Time Encounter Type Encounter Description Reason Provider Source Dec 14, 2021 08:00 AM Inpatient Visit GI ENDOSCOPY IHE Encounter Template Text not used by [place] [...] NONE [place] [facility] Jan 06, 2022 02:00 PM [place] [facility] Jan 10, 2022 11:30 AM [facility] Jan 24, 2022 08:00 AM [place] [facility] Feb 21, 2022 10:00 AM [facility] [place] [facility] Mar 21, 2022 10:30 AM AMBULATORY [...] The data comes from all [place] treatment [facility]. Test Date/Time Test Type Test Details Facility Name October 31, 2021 07:37 AM Consult Order COMMUNITY CARE-EGD [facility] Cons [facility] November 15, 2021 10:37 AM Consult Order [facility] CARE-PODIATRY Cons [facility] Dec 06, 2021 12:52 PM [place]acy [place] Infusion Order [facility] Dec 06, 2021 03:24 PM [place]acy [place] [facility] Dec 06, 2021 03:40 PM [place]acy [place] Order [facility] Dec 15, 2021 08:41 AM Consult Order SPEECH PATHOLOGY [place] OUTPAT[place] Cons [facility] Jan 15, 2022 10:08 PM Consult Order [facility] CARE-PALLIATIVE CARE Cons [facility] Lab Results: +/- 30 days of the encounter This section includes the Chemistry and Hematology Lab Results on record with [place] for the patient. Radiology Reports and Pathology Reports are provided separately, in subsequent sections.Lab Results This section contains the Chemistry/Hematology Results that were resulted 30 days before or 30 daysafter the date of the Encounter. Date/Time Source Result Type Result - Unit Interpretation Reference Range Comment Dec 15, 2021 [place] P4 GLU,BUN,CREAT,LYTES,CA Speci men Type: PLASMA 06:43 AM [facility] Comment: Tests performed on Padlet (405) SN:[id number] Ordering Provid er: ISATU TODD Report Released Date/Time: Dec 11, 2021 07:42 AM Reporting Lab: [facility] [facility] [address] [facility] [address] Performing Lab: [facility] [address] [facility] [address] UREA NITROGEN 9 7-25 SODIUM 137 135-145 [...] [place] [facility] [address] [facility] [address] Performing Lab: [facility] [address] [facility] [address] WBC 5.7 4.5-11.0 RBC 4.22 L 4.23-5.66 [...] 2 NUE, FFPE See full report in Mojo [employer] Image display viewer/tab#LAB-Reference Ordering Provid er: NIURKA MILLER Report Released Date/Time: Dec 21, 2021 12:11 PM Reporting Lab: [facility] [address] [facility] [address] Performing Lab: [facility] CYTOGENETIC FISH[place] Dec 14, 2021 [facility] P4 GLU,BUN,CREAT,LYTES,CA Speci men Type: PLASMA 06:27 AM [facility] Comment: Tests performed on Padlet (405) SN:[id number] Ordering Provid er: ISATU TODD Report Released Date/Time: Dec 11, 2021 07:42 AM Reporting Lab: [facility] [address] [facility] [address] Performing Lab: [facility] [address] [facility] [address] UREA NITROGEN 10 7-25 SODIUM 137 135-145 [...] Reporting Lab: [facility] [address] [facility] [address] Performing Lab: [facility] [address] [facility] [address] WBC 6.0 4.5-11.0 RBC 4.29 4.23-5.66 HGB [...] Speci men Type: PLASMA 06:34 AM [facility] Comment: Tests performed on Padlet (405 SN:[id number] Ordering Provid er: ISATU TODD Report Released Date/Time: Dec 11, 2021 07:42 AM Reporting Lab: [facility] [address] [facility] [address] Performing Lab: [facility] [address] [facility] [address] UREA NITROGEN 12 7-25 SODIUM 136 135-145 [...] Reporting Lab: [facility] [address] [facility] [address] Performing Lab: [facility] [address] [facility] [address] WBC 5.6 4.5-11.0 RBC 4.28 4.23-5.66 HGB [...] Speci men Type: PLASMA 06:21 AM [facility] Comment: Tests performed on Padlet (405) SN:[id number] Ordering Provid er: ISATU TODD Report Released Date/Time: Dec 11, 2021 07:42 AM Reporting Lab: [facility] [address] [facility] [address] Performing Lab: [facility] [address] [facility] [address] UREA NITROGEN 11 7-25 SODIUM 139 135-145 [...] AM Reporting Lab: [facility] [address] [facility] [address] Performing Lab: [facility] [address] [facility] [address] WBC 5.5 4.5-11.0 RBC 4.37 4.23-5.66 HGB [...] 0.00 0-0 Dec 12, 2021 06:00 AM [employer] MAGNESIUM Sp ecimen Type: PLASMA Comment: Testin g Performed on Padlet (405) SN:[id number] Ordering Provid er: ISATU TODD Report Released Date/Time: Dec 12, 2021 08:24 AM Reporting Lab: [place] [employer] [address] [facility] [address] Performing Lab: [facility] [address] [facility] [address] MAGNESIUM 1.8 1.6-2.6 Dec 12, 2021 06:00 AM [employer] [facility] PHOSPHORUS Sp ecimen Type: PLASMA Comment: Testin g Performed on Padlet (405) SN:[id number] Ordering Provid er: ISATU TODD Report Released Date/Time: Dec 12, 2021 08:24 AM Reporting Lab: [employer] [address] [facility] [address] Performing Lab: [facility] [address] [facility] [address] PHOSPHORUS 3.1 2.5-5.0 Dec 11, 2021 06:15 AM [employer] [facility] ELECTROLYTES Sp ecimen Type: PLASMA Comment: Tests performed on Padlet (405) SN:[id number] Ordering Provid er: ISATU TODD Report Released Date/Time: Dec 10, 2021 07:22 AM Reporting Lab: [place] [employer] [facility] [address] [facility] [address] Performing Lab: [employer] [employer] [address] [facility] [address] SODIUM 137 135-145 POTASSIUM 4.3 3.5-5.0 CHLORIDE 108 100-110 CARBON DIOXIDE 20 20-30 ANION GAP 9 4-16 Dec 11, 2021 06:15 AM [facility] CBC PROFILE Sp ecimen Type: BLOOD Comment: Result s checked Ordering Provid er: ISATU TODD Report Released Date/Time: Dec 10, 2021 07:22 AM Reporting Lab: [place] [facility] [address] [facility] [address] Performing Lab: [place] [facility] [address] [facility] [address] WBC 5.8 4.5-11.0 RBC 4.37 4.23-5.66 HGB [...] 2021 06:00 AM [facility] PHOSPHORUS Sp ecimen Type: PLASMA Comment: Tests performed on Padlet (551) SN:[id number] Results checked Ordering Provid er: ISATU TODD Report Released Date/Time: Dec 11, 2021 07:44 AM Reporting Lab: [place] [address] [facility] [address] Performing Lab: [place] [facility] [address] [facility] [address] PHOSPHORUS 3.0 2.5-5.0 Dec 10, 2021 08:05 AM [place] UREA NITROGEN Specimen Type: PLASMA [facility] Comment: [place] [id number] on Dec 10, 2021@08:31 Tests performed on Padlet (405) SN:[id number] Ordering Provid er: ISATU TODD Report Released Date/Time: Dec 10, 2021 07:22 AM Reporting Lab: [place] [facility] [address] [facility] [place] [address] Performing Lab: [place] [facility] [address] [facility] [place] [address] UREA NITROGEN 8 7-25 Dec 10, 2021 08:05 AM [place] [facility] PHOSPHORUS Sp ecimen Type: PLASMA Comment: [place] [id number] on Dec 10, 2021@08:31 Tests performed on Padlet (405) SN:[id number] Ordering Provid er: ISATU TODD Report Released Date/Time: Dec 10, 2021 07:22 AM Reporting Lab: [place] [facility] [address] [facility] [place] [address] Performing Lab: [place] [facility] [address] [facility] [place] [address] PHOSPHORUS 1.8 L 2.5-5.0 Dec 10, 2021 08:05 AM [place] [facility] MAGNESIUM Sp ecimen Type: PLASMA Comment: [place] [id number] on Dec 10, 2021@08:31 Tests performed on Padlet (405) SN:[id number] Ordering Provid er: ISATU TODD Report Released Date/Time: Dec 10, 2021 07:22 AM Reporting Lab: [place] [facility] [address] [facility] [place] [address] Performing Lab: [place] [facility] [address] [facility] [place] [address] MAGNESIUM 1.7 1.6-2.6 Dec 10, 2021 08:05 AM [place] [facility] GLUCOSE Sp ecimen Type: PLASMA Comment: [place] [id number] on Dec 10, 2021@08:31 Tests performed on Padlet (405) SN:[id number] Ordering Provid er: ISATU TODD Report Released Date/Time: Dec 10, 2021 07:22 AM Reporting Lab: [place] [facility] [address] [facility] [address] Performing Lab: [place] [facility] [address] [facility] [address] GLUCOSE 144 H 65-100 Dec 10, 2021 08:05 AM [place] [facility] CALCIUM Sp ecimen Type: PLASMA Comment: [place] [id number] on Dec 10, 2021@08:31 Tests performed on Padlet (405) SN:[id number] Ordering Provid er: ISATU TODD Report Released Date/Time: Dec 10, 2021 07:22 AM Reporting Lab: [place] [facility] [address] [facility] [address] Performing Lab: [place] [facility] [address] [facility] [address] CALCIUM 8.3 L 8.5-10.5 Dec 10, 2021 08:05 [place] CREATININE WITH eGFR Specime n Type: PLASMA AM [facility] PANEL Comment: [place] [id number] on Dec 10, 2021@08:31 Tests performed on Padlet (405) SN:[id number] Ordering Provid er: ISATU TODD Report Released Date/Time: Dec 10, 2021 07:22 AM Reporting Lab: [place] [facility] [address] [facility] [address] Performing Lab: [place] [facility] [address] [facility] [address] CREATININE 0.78 0.5-1.5 eGFR(CKD-EPI 2020) >90.0 >60 Dec 10, 2021 08:05 AM [place] [facility] CBC PROFILE Sp ecimen Type: BLOOD No comment enter ed. Ordering Provid er: ISATU TODD Report Released Date/Time: Dec 10, 2021 07:22 AM Reporting Lab: [place] [facility] [address] [facility] [address] Performing Lab: [place] [facility] [address] [facility] [address] WBC 7.0 4.5-11.0 RBC 4.54 4.23-5.66 HGB [...] 2021 08:05 AM [facility] ELECTROLYTES Sp ecimen Type: PLASMA Comment: [place] [id number] on Dec 10, 2021@08:31 Tests performed on Padlet (405) SN:[id number] Ordering Provid er: ISATU TODD Report Released Date/Time: Dec 10, 2021 07:22 AM Reporting Lab: [facility] [address] [facility] [address] Performing Lab: [facility] [address] [facility] [address] SODIUM 139 135-145 POTASSIUM 3.7 3.5-5.0 CHLORIDE 107 100-110 CARBON DIOXIDE 24 20-30 ANION GAP 8 4-16 Dec 09, 2021 06:46 AM [place] [facility] MAGNESIUM Sp ecimen Type: PLASMA Comment: Tests performed on Padlet (405) SN:[id number] Ordering Provid er: ISTAU TODD Report Released Date/Time: Dec 08, 2021 10:23 AM Reporting Lab: [facility] [address] [facility] [address] Performing Lab: [facility] [address] [facility] [address] MAGNESIUM 1.6 1.6-2.6 Dec 09, 2021 [facility] P4 GLU,BUN,CREAT,LYTES,CA Speci men Type: PLASMA 06:46 AM [facility] Comment: Tests performed on Padlet (405) SN:[id number] Ordering Provid er: ISATU TODD Report Released Date/Time: Dec 08, 2021 05:00 PM [facility] [address] [facility] [address] [facility] [address] [facility] [address] UREA NITROGEN 6 L 7-25 SODIUM 134 [...] 2021 05:00 PM [facility] [address] [facility] [address] [facility] [address] [facility] [address] WBC 7.1 4.5-11.0 RBC 4.40 4.23-5.66 HGB [...] 0.00 0-0 Dec 08, 2021 06:39 AM [facility] MAGNESIUM Sp ecimen Type: PLASMA Comment: Testin g Performed on Padlet (405) SN:[id number] Ordering Provid er: ISATU TODD Report Released Date/Time: Dec 07, 2021 10:32 AM Reporting Lab: [facility] [address] [facility] [address] Performing Lab: [facility] [address] [facility] [address] MAGNESIUM 1.5 L 1.6-2.6 Dec 08, 2021 06:39 AM [facility] CBC PROFILE Sp ecimen Type: BLOOD No comment enter ed. Ordering Provid er: ISATU TODD Report Released Date/Time: Dec 07, 2021 10:32 AM Reporting Lab: [facility] [address] [facility] [address] Performing Lab: [facility] [address] [facility] [address] WBC 8.4 4.5-11.0 RBC 4.75 4.23-5.66 HGB [...] AM [facility] Comment: Testin g Performed on Padlet (405) SN:[id number] Ordering Provid er: ISATU TODD Report Released Date/Time: Dec 07, 2021 10:32 AM Reporting Lab: [facility] [address] [facility] [address] Performing Lab: [facility] [address] [facility] [address] UREA NITROGEN 6 L 7-25 SODIUM 136 135-145 POTASSIUM 3.3 L 3.5-5.0 CHLORIDE 104 100-110 CARBON DIOXIDE 22 20-30 ANION GAP 10 4-16 GLUCOSE 133 H 65-100 CREATININE 0.76 0.5-1.5 CALCIUM 8.4 L 8.5-10.5 eGFR(CKD-EPI 2020) >90.0 >60 Dec 07, 2021 [facility] P4 GLU,BUN,CREAT,LYTES,CA Speci men Type: PLASMA 06:42 AM [facility] Comment: Tests performed on Pham Arbovax (405) SN:[id number] Ordering Provid er: PORFIRIO WALTERS Report Released Date/Time: Dec 06, 2021 06:57 PM Reporting Lab: [place] [facility] [address] [facility] [address] Performing Lab: [facility] [address] [facility] [address] UREA NITROGEN 9 7-25 SODIUM 135 135-145 POTASSIUM 3.5 3.5-5.0 CHLORIDE 103 100-110 CARBON DIOXIDE 22 20-30 ANION GAP 10 4-16 GLUCOSE 92 65-100 CREATININE 0.73 0.5-1.5 CALCIUM 8.0 L 8.5-10.5 eGFR(CKD-EPI 2020) >90.0 >60 Dec 07, 2021 06:42 [place] [facility] LIVER PROFILE Specimen Typ e: PLASMA AM [facility] Comment: Tests performed on Padlet (405) SN:[id number] Ordering Provid er: PORFIRIO WALTERS Report Released Date/Time: Dec 06, 2021 06:57 PM Reporting Lab: [facility] [address] [facility] [address] Performing Lab: [facility] [address] [facility] [address] PROTEIN, TOTAL 5.7 L 6.0-8.5 ALBUMIN 2.4 L 3.2-5.0 BILIRUBIN, TOTAL 0.4 0.2-1.2 ALKALINE PHOSPHATASE 109 40-150 ALT(SGPT) 10 7-52 AST(SGOT) 15 5-34 FIB-4 SCORE 1.92 <2.67 Dec 07, 2021 06:42 AM [facility] CBC PROFILE Specimen Type: BLOOD [facility] No comment enter ed. Ordering Provid er: PORFIRIO WALTERS Report Released Date/Time: Dec 06, 2021 06:57 PM Reporting Lab: [facility] [address] [facility] [address] Performing Lab: [facility] [address] [facility] [address] WBC 5.7 4.5-11.0 RBC 4.15 L 4.23-5.66 [...] [facility] %) AUTOMATED Comment: Tests performed on Padlet (405) SN:[id number] Ordering Provid er: ISATU TODD Report Released Date/Time: Dec 07, 2021 10:28 AM Reporting Lab: [place] [facility] [address] [facility] [address] Performing Lab: [place] [facility] [address] [facility] [address] RETICULOCYTES (%) AUTOMATED 1.23 0. 6-2.0 RETICULOCYTES (ABS) AUTOMATED 0.052 0.030-0.090 Dec 06, 2021 09:45 [place] MRSA SURVL NARES Specimen Ty pe: NARES PM [facility] DNA No comment enter ed. Ordering Provid er: ALVARO VARGHESE Report Released Date/Time: Dec 07, 2021 02:20 AM Reporting Lab: [place] [facility] [address] [facility] [address] Performing Lab: [place] [facility] [address] [facility] [address] MRSA SURVL NARES DNA NEGATIVE NEGATIVE Dec 06, 2021 06:00 [place] URINALYSIS W/REFLEX TO Speci men Type: URINE PM [facility] CULTURE No comment enter ed. Ordering Provid er: JELANI SÁNCHEZ Report Released Date/Time: Dec 06, 2021 11:57 AM Reporting Lab: [place] [facility] [address] [facility] [address] Performing Lab: [place] [facility] [address] [facility] [address] URINE COLOR Arlin YELLOW SPECIFIC GRAVITY 1.029 [...] 21, [place] Comment: https://www.cdc.gov/coronavirus/2019-ncov/cases-updates/variant- surveillance/variant-info.html The CSR SARS CoV 2 [employer] Assay-GX is a next-generation sequencing (NGS) assa 2021 [facility] SEQUENCING y that determine s the complete genome sequence of the SARS-CoV-2 virus. The assay contains variant-tolerant primers to broaden and improve the coverage for variant detection and increase the sensitivity 12:00 [facility] PNL(WH) of the panel to enable detection from lower viral titer samples. The assay is run on the [employer] Sequencer, which performs automated library preparation, sequencing, analysis, and reporting. PM The sequence an alysis includes determination of viral phylogenetic lineage by comparison to the reference strain Wuhan-Hu-1, GenBank: [id number]. Sequence determination may not be possible owing [...] [facility] [address] [facility] [address] Performing Lab: [facility] [address] [place] [address] SARS-CoV-2 CLADE() 22C (OMICRON) SARS-CoV-2 LINEAGE() BA.2.12.1 Dec 06, 2021 12:00 [facility] COVID-19 AG SCREEN Specimen Type: NASAL CAVITY PM [facility] PANEL BINAX(405) Comment: Testi ng Performed By: Mike Briscoe Ordering Provid er: JELANI SÁNCHEZ Report Released Date/Time: Dec 08, 2021 08:23 AM Reporting Lab: [facility] [address] [facility] [address] Performing Lab: [facility] [address] [facility] [address] COVID-19 AG SCRN(wrj BINAX) POSITIVE HH NE G Dec 06, 2021 [facility] P4 GLU,BUN,CREAT,LYTES,CA Speci men Type: PLASMA 12:00 PM [facility] Comment: Testin g Performed on Pham [employer] System Operator (405) SN:[id number] Ordering Provid er: JELANI SÁNCHEZ Report Released Date/Time: Dec 06, 2021 11:57 AM Reporting Lab: [facility] [address] [facility] [address] Performing Lab: [facility] [address] [facility] [address] UREA NITROGEN 13 7-25 SODIUM 138 135-145 POTASSIUM 3.8 3.5-5.0 CHLORIDE 103 100-110 CARBON DIOXIDE 23 20-30 ANION GAP 12 4-16 GLUCOSE 105 H 65-100 CREATININE 0.90 0.5-1.5 CALCIUM 8.7 8.5-10.5 eGFR(CKD-EPI 2020) >90.0 >60 Dec 06, 2021 12:00 PM [facility] TROPONIN II Sp ecimen Type: PLASMA Comment: Tests performed on Pham [employer] System Operator (405) SN:[id number] Ordering Provid er: JELANI SÁNCHEZ Report Released Date/Time: Dec 06, 2021 11:57 AM Reporting Lab: [facility] [address] [facility] [address] Performing Lab: [facility] [address] [facility] [address] TROPONIN II 0.03 0.00-0.29 Dec 06, 2021 12:00 PM [facility] LIVER PROFILE Sp ecimen Type: PLASMA Comment: Testin g Performed on Pham [employer] Collection System Operator (405) SN:[id number] Ordering Provid er: JELANI SÁNCHEZ Report Released Date/Time: Dec 06, 2021 11:57 AM Reporting Lab: [facility] [address] [facility] [address] Performing Lab: [facility] [address] [facility] [address] PROTEIN, TOTAL 6.6 6.0-8.5 ALBUMIN 2.8 L 3.2-5.0 BILIRUBIN, TOTAL 0.6 0.2-1.2 ALKALINE PHOSPHATASE 134 40-150 ALT(SGPT) 13 7-52 AST(SGOT) 18 5-34 FIB-4 SCORE 1.94 <2.67 Dec 06, 2021 [facility] COVID-19+FLU/RSV DIAGNOSTIC Spe cimen Type: NASOPHARYNX 12:00 PM [facility] PANEL(405) Comment: Tests performed on [employer] Genexpert (405) Critical results called to and read back by: ALESHIA WILKINSON RN 12/06/21 @ 1312 Ordering Provid er: JELANI SÁNCHEZ Report Released Date/Time: Dec 06, 2021 11:57 AM Reporting Lab: [facility] [address] [facility] [address] Performing Lab: [facility] [address] [facility] [address] FLU A(PCR) NEGATIVE NEGATIVE FLU B(PCR) NEGATIVE NEGATIVE RSV(PCR) NEGATIVE NEGATIVE COVID-19([id number]) DETECTED HH NO T DETECTED Dec 06, 2021 12:00 PM [facility] BNP(P) Sp ecimen Type: PLASMA Comment: Tests performed on Pham [employer] Collection System Operator (405) SN:[id number] Ordering Provid er: JELANI SÁNCHEZ Report Released Date/Time: Dec 06, 2021 11:57 AM Reporting Lab: [place] [facility] [address] [facility] [address] Performing Lab: [facility] [place] [facility] [address] [facility] [address] BNP(P) 224.8 H 10-100 Dec 06, 2021 12:00 PM [place] [facility] CBC PROFILE Sp ecimen Type: BLOOD No comment enter ed. Ordering Provid er: JELANI SÁNCHEZ Report Released Date/Time: Dec 06, 2021 11:57 AM Reporting Lab: [facility] [address] [facility] [address] Performing Lab: [facility] [address] [facility] [address] WBC 7.2 4.5-11.0 RBC 4.86 4.23-5.66 HGB [...] WHITE 2021 08:47 /min mm[Hg] [place] PM [facility] Dec 14, 0 2021 03:14 [place] PM T [facility] Dec 14, 97.1 F 91 139/68 20 /min 99 % WHITE 2021 02:23 /min mm[Hg] RIVER PM T [facility] Dec 14, 0 WHITE 2021 10:15 RIVER AM [facility] Dec 14, 97.5 F 94 138/68 18 /min 97 % 0 WHITE 2021 10:13 /min mm[Hg] RIVER AM [facility] Social History: [...] took place. Date/Time Smoking Status/Tobacco Use Comment [facility] Apr 01, 2020 01:16 PM [...] [facility] May 01, 2016 03:11 PM QUIT TOBACCO USE IN PAST YEAR [facility] DO[facility] May 01, 2016 11:19 AM QUIT TOBACCO USE IN PAST YEAR [facility] DOYLE [facility] Mar 16, 2016 12:50 PM V1-PT DECLINES REF TO TOBACCO [facility] [place] CESS [facility] Mar 16, 2016 12:50 [...] W/WO CONTRAST: MARYELLEN LONG LUCAS LARES N [id number] -1950 [facility] Exm Date: DEC 13, 2021@12:57 Req Phys: ISATU TODD Loc: OP Unknown/0 12-15-2021@13:20 Img Loc: MRI IMAGING (OOS) Service: [facility] (Case [id number] COMPLETE) MRI ABDOMEN W/WO CONTRAST (M RI Detailed) CPT:96180 Reason for Study: further characterization of a [...] new lyphadenopathy REQUESTING MD: Isatu Todd PAGER: [phone] PHONE: [phone] Weight: 232.2 lb [105.32 kg] (12/12/2021 05:00) [...] patient will need to arrange for a skidder driver to take him/her home after the [...] 15, 2021 Date Verified: DEC 15, 2021 Lug Loader E-Sig:/ES/MARYELLEN LONG Report: MRI ABDOMEN W/WO CONTRAST [...] MALIGNANCY Primary Interpreting Staff: Staff AMELIA THOMAS (Lug Loader) / Dec 10, 2021 09:[address] ABDOMEN & PELVIS: RADIOLOGY,OUTSIDE [facility] LUCAS MEEK N [id number] -1950 M [facility] Exm Date: DEC 10, 2021@09:30 Req Phys: ISATU TODD Loc: 1S MED/12-10@10:57 Img Loc: CT SCAN (OOS) Service: [facility] (Case [id number] COMPLETE) CT ABD & PELVIS WITHOUT CONT RAST (CT Detailed) CPT:02159 Reason for Study: 71 yo male with [...] INDEX - NO HEIGHTS FOUND Pager number: [phone] STAT orders MUST be call ed to RADIOLOGY [phone] to speak to the appropriate semiconductor processing technician. Report Status: Verified Date Reported: DEC 10, 2021 Date Verified: DEC 10, 2021 Lug Loader E-Sig: Report: EXAM: CT abdomen and pelvis [...] ph nodes. READING PHYSICIAN: Ramone Munoz D.O. -[phone] 12/10/2021 10:55 EDT [facility] National Teleradiology Program [phone] (For Medical Practitioner Use Only ) [address] [facility], [facility] [address], [address] [place] [address] Attention Patients / Veterans: If you have ques tions or concerns about these test results, please contact your o rdering provider or primary care team. Primary Diagnostic Code: SIGNIFICANT ABNORMALIT Y, ATTN NEEDED Primary Interpreting Staff: RADIOLOGY,OUTSIDE SERVICE, Staff Physician / Dec 09, 2021 07:34 AM BASW (MODIFIED): JESSIE CHENEY [facility] LUCAS MEEK N [id number] -1950 M [facility] Ex Date: DEC 09, 2021@07:34 Req Phys: ISATU TODD Loc: 1S MED/12-09@11:26 Img Loc: XRAY (OOS) Service: [facility] (Case [id number] COMPLETE) BASW (MODIFIED) (RAD Detaile d) CPT:92003 Contrast Media : Barium Reason for Study: dysphagia ?esophageal spasm Clinical History: Report Status: Verified Date Reported: DEC 09, 2021 Date Verified: DEC 09, 2021 Lug Loader E-Sig:/ES/JESSIE CHENEY Report: DELISA (MODIFIED) , 12/09/2021 [...] IMMEDIATE ATTENTION REQUIRED Primary Interpreting Staff: JESSIE HCENEY, RADIOLOGIST (Lug Loader) /TLC Dec 06, 2021 12:[address] CHEST (INCLUDES ADRENALS): JESSIE CHENEY [facility] LUCAS MEEK N [id number] -1950 [facility] Exm Date: DEC 06, 2021@12:59 Req Phys: GONZALOJELANI ORLANDO Pat Loc: [facility] ED DAYS M 1RD (Req'g Loc) Img Loc: CT SCAN (OOS) Service: Unknown (Case [id number] COMPLETE) CT THORAX W/O CONT (CT Detai led) CPT:63693 Reason for Study: Opacification right chest Clinical History: No contrast allergy BUN: 13 (12/06/21 12:00) CREATI: 0.90 (12/06/21 12:00) eGFR 05/16/21 09:43 52 L Weight: 232.6 lb [105.51 kg] (12/06/2021 11:40) BODY MASS INDEX - NO HEIGHTS FOUND Pager number: [phone] STAT orders MUST be called t o RADIOLOGY [phone] to speak to the appropriate semiconductor processing technician. Indications - Other: Opacification right chest, covid positive, lung cancer histo Report Status: Verified Date Reported: DEC 06, 2021 Date Verified: DEC 06, 2021 Lug Loader E-Sig:/ES/JESSIE CHENEY Report: CT THORAX W/O CONT [...] REQUIRED Primary Interpreting Staff: JESSIE CHENEY, RADIOLOGIST (Lug Loader) Primary Interpreting Resident: PRINCE CHAMPION, Resident /BR Dec 06, 2021 11:58 AM CHEST SINGLE VIEW: JESSIE CHENEYT LUCAS MEEK N [id number] -1950 M [facility] Exm Date: DEC 06, 2021@11:58 Req Phys: JELANI SÁNCHEZ Pat Loc: [facility] ED DAYS M 1RD (Req'g Loc) Img Loc: XRAY (OOS) Service: Unknown (Case [id number] COMPLETE) CHEST SINGLE VIEW (RAD Detai led) CPT:22570 Proc Modifiers : PORTABLE EXAM Reason for Study: SOB, home covid test positive Clinical History: Report Status: Verified Date Reported: DEC 06, 2021 Date Verified: DEC 06, 2021 Lug Loader E-Sig:/ES/JESSIE CHENEY Report: Exam type: Chest x-ray [...] REQUIRED Primary Interpreting Staff: JESSIE CHENEY, RADIOLOGIST (Lug Loader) /TLC Pathology Reports: +/- 30 days of [...] AM LR SURGICAL PATHOLOGY REPORT: STEFANY MILLER [facility] LOCAL TITLE: LR SURGICAL PATHOLOGY REPORT [facility] STANDARD TITLE: PATHOLOGY REPORT DATE OF NOTE: JAN 03, 2022@10:28:01 ENTRY DATE: JAN 03, 2022@10:28:01 AUTHOR: NIURKA MILLER EXP COSIGNER: URGENCY: STATUS: COMPLETED $APHDR Reporting Lab: [facility] [CLIA# [id number]] [address] [place] [address] - - - - - - [...] automatically d ocumented from SURGERY package case #[id number] Field (#32) PRINCIPAL PRE-OP DIAGNOSIS, (#.72) OTHER [...] automatically d ocumented from SURGERY package case #[id number] Field (#34) PRINCIPAL POST-OP DIAG, (#.74) OTHER [...] GROSS DESCRIPTION: Name Label: Lucas Meek Paperwork: Luacs Meek Cassette: [id number];..;KALYANI;.;405;[phone] Specimen is labeled: ES bx Received in formalin are several pieces of pale boyd and brown tissue, 1.2 x 0.7 cm in aggregate. Submitted entirely in 1 cassette [id number];..;KALYANI;.;405;[id number] SAW 12/15/2021 Microscopic exam: *+* MODIFIED REPORT *+* (Last modified: JAN 03, 2022@09:30:20 typed by NIURKA WADDELL) DIAGNOSIS: A. 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 Kendell olng. TIARA Coombs was notified on 12/21/21. Modified on 01/03/22 to include report from [facility] stating that tumor is NEGATIVE for her2/ matheus amplification. The attending pathologist who signature mansoor ears on this report has reviewed all diagnostic slides and has edited t he gross and/or microscopic portion of this report in rendering the final pathologic diagnosis. [address] [address] CPT: 50645 /emely/ NIURKA Yeung MD Signed Jan 03, 2022@10:28 Performing Laboratory: Surgical Pathology Report Performed By: CAREY MONTOYA [facility] [CLIA# [id number]] [address] [place] [address] $FTR - - - - - [...] - - LUCAS MEEK STANDARD FORM 515 ID:[id number] SEX:M :1950 AGE: 71 LOC: SDM END PCP: Isatu Todd /emely/ NIURKA MILLER Staff Signed: 01/03/2022 10:28 Dec 21, 2021 11:46 AM LR SURGICAL PATHOLOGY REPORT: STEFANY MILLER [place] [facility] LOCAL TITLE: LR SURGICAL PATHOLOGY REPORT [facility] STANDARD TITLE: PATHOLOGY REPORT DATE OF NOTE: DEC 21, 2021@11:46:59 ENTRY DATE: DEC 21, 2021@11:46:59 AUTHOR: NIURKA MILLER EXP COSIGNER: URGENCY: STATUS: COMPLETED $APHDR Reporting Lab: [facility] [CLIA# [id number]] [address] [place] [address] - - - - - - [...] automatically d ocumented from SURGERY package case #[id number] Field (#32) PRINCIPAL PRE-OP DIAGNOSIS, (#.72) OTHER [...] automatically d ocumented from SURGERY package case #[id number] Field (#34) PRINCIPAL POST-OP DIAG, (#.74) OTHER [...] Label: Lucas Meek Paperwork: Lucas Meek Cassette: [id number];..;KALYANI;.;405;[phone] Specimen is labeled: ES bx Received in formalin are several pieces of pale boyd and brown tissue, 1.2 x 0.7 cm in aggregate. Submitted entirely in 1 cassette [id number];..;KALYANI;.;405;[id number] SAW 12/15/2021 Microscopic exam: DIAGNOSIS: A. 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 Kendell long. TIARA Coombs was notified on 12/21/21. The attending pathologist who signature mansoor ears on this report has reviewed all diagnostic slides and has edited t he gross and/or microscopic portion of this report in rendering the final pathologic diagnosis. [address] [address] CPT: 06513 /emely/ NIURKA Yeung MD Signed Dec 21, 2021@11:46 Performing Laboratory: Surgical Pathology Report Performed By: [facility] [CLIA# [id number]] [address] [place] [address] $FTR - - - - - [...] - - LUCAS MEEK STANDARD FORM 515 ID:[id number] SEX:M :1950 AGE: 71 LOC: [facility] END PCP: Isatu Todd /emely/ NIURKA Yeung MD Signed: 12/21/2021 11:46 Dec 06, 2021 03:30 PM LR [facility] Reporting Lab: [facility] [CLIA# [id number]] [address] [place] [address] Accession [UID]: [id number] [[id number]] Receiv ed: Dec 06, 2021@16:14 Collection sample: BLOOD CUL T BOTTLE(NIRMAL/AERO)Collection date: Dec 06, 2021 15:30 Site/Specimen: BLOOD Provider: JELANI SÁNCHEZ Comment on specimen: LAC Test(s) ordered: BLOOD CULTURE ANAEROBI C....... completed: Dec 12, 2021 06:18 * BACTERIOLOGY FINAL REPORT => Dec 12, 2021 06:1 8 TECH CODE: [id number] Bacteriology Remark(s): NO GROWTH IN 5 DAYS =--=--=--=--=--=--=--=--=--=--=--=--=--= --=--=--=--=--=--=--=--=--=--=--=--=-- Performing Laboratory: Bacteriology Report Performed By: [facility] [CLIA# [id number]] [address] [place] [address] Dec 06, 2021 03:30 PM LR MICROBIOLOGY REPORT: [facility] Reporting Lab: [facility] [CLIA# [id number]] [address] [place] [address] Accession [UID]: [id number] [[id number]] Receiv ed: Dec 06, 2021@16:14 Collection sample: BLOOD CUL T BOTTLE(NIRMAL/AERO)Collection date: Dec 06, 2021 15:30 Site/Specimen: BLOOD Provider: JELANI SÁNCHEZ Comment on specimen: LAC Test(s) ordered: BLOOD CULTURE AEROBIC. ........ completed: Dec 12, 2021 06:17 * BACTERIOLOGY FINAL REPORT => Dec 12, 2021 06:1 7 TECH CODE: [id number] Bacteriology Remark(s): NO GROWTH IN 5 DAYS =--=--=--=--=--=--=--=--=--=--=--=--=--= --=--=--=--=--=--=--=--=--=--=--=--=-- Performing Laboratory: Bacteriology Report Performed By: [facility] [CLIA# [id number]] [address] [place] [address]
--- OUTSIDE RECORDS SUMMARY | 2022-01-19 08:56 | XMS_ITS ---
"DAILY HOSPITALIZATION DATA [facility] Encounter Summary Created on:December 14, 2021 Patient:LUCAS MEEK Sex:Male :1950 Author Organization [facility] Address [address] [place] [id number] Support Name Relationship Address Phone YUSRA MEEK Unavailable [address] [place] [place] [address] YUSRA MEEK Unavailable [address] [place] [facility] [place] [address] CLAY MOSLEY Unavailable Unavailable SJ SANTACRUZ Unavailable [...] MEDICARE MEDICARE PART Jun 18, PART A [id number] DO KALYANI PATIENT (WNR) (M) A 2016 13A 1 [place]AS MEDICARE MEDICARE PART Jun 18, PART B [id number] DO KALYANI PATIENT (WNR) (M) B 2016 13A 1 [place] MEDICARE MEDICARE PART Jun 18, PART A [id number] KALYANIDO PATIENT (WNR) (M) A 2017 VH81 2 [place] MEDICARE MEDICARE PART Jun 18, PART B [id number] DO KALYANI PATIENT (WNR) (M) B 2017 VH81 2 [place] UNITED MEDICARE MCR(Jun 18 [id number] Luz MEEK PATIENT HEALTHCARE ADVANTAGE NR) 2021 37 0 [facility] (WNR) Selected Encounter This section includes the information on record at NM for the Encounter. Date/Time Encounter Type Encounter Description Reason Provider Source Dec 14, 2021 10:50 Inpatient Visit DAILY HOSPITALIZATION DATA AM [facility] Encounter Template Text not used by NM [...] [place] [facility] Jan 10, 2022 11:30 AM [facility] Jan 24, 2022 08:00 AM [place] [facility] Feb 21, 2022 10:00 AM [place] [facility] Mar [...] The data comes from all NM treatment [facility]. Test Date/Time Test Type Test Details Facility Name October 31, 2021 07:37 AM Consult Order [facility]-EGD [facility] Cons Communications Technologist's Choice November 15, 2021 10:37 AM Consult Order [facility]-PODIATRY Cons Communications Technologist's Choice Dec 06, 2021 12:52 PM Pharmacy [place] Infusion Order [facility] Dec 06, 2021 03:24 PM Pharmacy - [place] Order [facility] Dec 06, 2021 03:40 PM Pharmacy - [place] Order [facility] Dec 15, 2021 08:41 AM Consult Order SPEECH PATHOLOGY [place] OUTPATIENT Cons [facility] Communications Technologist's Choice Jan 15, 2022 10:08 PM Consult Order [facility] CARE-PALLIATIVE CARE Cons Communications Technologist's Choice Lab Results: +/- 30 days of the encounter This section includes the Chemistry and Hematology Lab Results on record with NM for the patient. Radiology Reports and Pathology Reports are provided separately, in subsequent sections.Lab Results This section contains the Chemistry/Hematology Results that were resulted 30 days before or 30 daysafter the date of the Encounter. Date/Time Source Result Type Result - Unit Interpretation Reference Range Comment Dec 15, 2021 06:43 AM [facility] CBC PROFILE Sp ecimen Type: BLOOD No comment enter ed. Ordering Provid er: ISATU TODD Report Released Date/Time: Dec 10, 2021 07:22 AM Reporting Lab: [facility] [address] [facility] [address] Performing Lab: [facility] [address] [facility] [address] WBC 5.7 4.5-11.0 RBC 4.22 L 4.23-5.66 [...] ABSOLUTE NRBC 0.00 0-0 Dec 15, 2021 [facility] P4 GLU,BUN,CREAT,LYTES,CA Speci men Type: PLASMA 06:43 AM [facility] Comment: Tests performed on Pham Meat Stock Clerk (405) SN:[id number] Ordering Provid er: ISATU TODD Report Released Date/Time: Dec 11, 2021 07:42 AM Reporting Lab: [facility] [address] [facility] [address] Performing Lab: [facility] [address] [facility] [address] UREA NITROGEN 9 7-25 SODIUM 137 135-145 POTASSIUM 3.8 3.5-5.0 CHLORIDE 105 100-110 CARBON DIOXIDE 26 20-30 ANION GAP 6 4-16 GLUCOSE 102 H 65-100 CREATININE 0.64 0.5-1.5 CALCIUM 8.1 L 8.5-10.5 eGFR(CKD-EPI 2020) >90.0 >60 Dec 14, 2021 [facility] CYTOGENETIC Specimen Type: ESOPHAGUS 02:59 PM [facility] FISH([facility] Comment: ~For T est: CYTOGENETIC FISH([facility]) ~FISH HER 2 NUE, FFPE See full report in Dynex Image display viewer/tab#LAB-Reference Ordering Provid er: NIURKA MILLER Report Released Date/Time: Dec 21, 2021 12:11 PM Reporting Lab: [facility] [address] [facility] [address] Performing Lab: [facility] CYTOGENETIC FISH([facility]) comment Dec 14, 2021 [place] P4 GLU,BUN,CREAT,LYTES,CA Speci men Type: PLASMA 06:27 AM [facility] Comment: Tests performed on Pham Meat Stock Clerk (405) SN:[id number] Ordering Provid er: ISATU TODD Report Released Date/Time: Dec 11, 2021 07:42 AM Reporting Lab: [facility] [address] [facility] [address] Performing Lab: [facility] [address] [facility] [address] UREA NITROGEN 10 7-25 SODIUM 137 135-145 [...] Reporting Lab: [facility] [address] [facility] [address] Performing Lab: [facility] [address] [facility] [address] WBC 6.0 4.5-11.0 RBC 4.29 4.23-5.66 HGB [...] GLU,BUN,CREAT,LYTES,CA Speci men Type: PLASMA 06:34 AM [facility] Comment: Tests performed on Owtware (405) SN:[id number] Ordering Provid er: ISATU TODD Report Released Date/Time: Dec 11, 2021 07:42 AM Reporting Lab: [facility] [address] [facility] [address] Performing Lab: [facility] [address] [facility] [address] UREA NITROGEN 12 7-25 SODIUM 136 135-145 [...] Reporting Lab: [facility] [address] [facility] [address] Performing Lab: [facility] [address] [facility] [address] WBC 5.6 4.5-11.0 RBC 4.28 4.23-5.66 HGB [...] ABSOLUTE NRBC 0.00 0-0 Dec 12, 2021 [facility] P4 GLU,BUN,CREAT,LYTES,CA Speci men Type: PLASMA 06:21 AM [facility] Comment: Tests performed on Owtware (405) SN:[id number] Ordering Provid er: ISATU TODD Report Released Date/Time: Dec 11, 2021 07:42 AM Reporting Lab: [facility] [address] [facility] [address] Performing Lab: [facility] [address] [facility] [address] UREA NITROGEN 11 7-25 SODIUM 139 135-145 [...] 2021 07:22 AM Reporting Lab: [facility] [address] [facility] [address] Performing Lab: [facility] [address] [facility] [address] WBC 5.5 4.5-11.0 RBC 4.37 4.23-5.66 HGB [...] 0.00 0-0 Dec 12, 2021 06:00 AM [employer] [facility] MAGNESIUM Sp ecimen Type: PLASMA Comment: Testin g Performed on Owtware (405) SN:[id number] Ordering Provid er: ISATU TODD Report Released Date/Time: Dec 12, 2021 08:24 AM Reporting Lab: [place] [employer] - innovate | mentor | investT [facility] [address] [facility] [address] Performing Lab: [email or web address] [place] ideaTree - innovate | mentor | investT [facility]on[facility] [address] [facility] [address] MAGNESIUM 1.8 1.6-2.6 Dec 12, 2021 06:00 AM [employer]T [employer] PHOSPHORUS Sp ecimen Type: PLASMA Comment: Testin g Performed on Owtware (405) SN:[id number] Ordering Provid er: ISATU TODD Report Released Date/Time: Dec 12, 2021 08:24 AM Reporting Lab: [place] [employer] - innovate | mentor | investT [facility] [address] [facility] [address] Performing Lab: [place] [employer] - innovate | mentor | investT [employer] [address] [facility] [address] PHOSPHORUS 3.1 2.5-5.0 Dec 11, 2021 06:15 AM [email or web address] [place] [employer] - innovate | mentor | investT Pow[employer]on[facility]OC ELECTROLYTES Sp ecimen Type: PLASMA Comment: Tests performed on Owtware (405) SN:[id number] Ordering Provid er: ISATU TODD Report Released Date/Time: Dec 10, 2021 07:22 AM Reporting Lab: [place] [employer] - innovate | mentor | investT [facility] [address] [facility] [address] Performing Lab: [place] [employer] - innovate | mentor | investT [facility] [address] [facility] [address] SODIUM 137 135-145 POTASSIUM 4.3 3.5-5.0 CHLORIDE 108 100-110 CARBON DIOXIDE 20 20-30 ANION GAP 9 4-16 Dec 11, 2021 06:15 AM [place] s[place] [facility] CBC PROFILE Sp ecimen Type: BLOOD Comment: Result s checked Ordering Provid er: ISATU TODD Report Released Date/Time: Dec 10, 2021 07:22 AM Reporting Lab: [place] [facility] [address] [facility] [address] Performing Lab: [place]MEGAT [facility] [address] [facility] [address] WBC 5.8 4.5-11.0 RBC 4.37 4.23-5.66 HGB [...] Dec 11, 2021 06:00 AM [facility] PHOSPHORUS Sp ecimen Type: PLASMA Comment: Tests performed on Owtware (324) SN:[id number] Results checked Ordering Provid er: ISATU TODD Report Released Date/Time: Dec 11, 2021 07:44 AM Reporting Lab: [facility] DUFFT [facility] [address] [facility] [address] Performing Lab: [place] OMEGAT [facility] [address] [facility] [address] PHOSPHORUS 3.0 2.5-5.0 Dec 10, 2021 08:05 AM [place] [facility] MAGNESIUM Sp ecimen Type: PLASMA Comment: [place] [id number] on Dec 10, 2021@08:31 Tests performed on Owtware (405) SN:[id number] Ordering Provid er: ISATU TODD Report Released Date/Time: Dec 10, 2021 07:22 AM Reporting Lab: [place] [facility] [address] [place] [facility] [place] [place] [address] Performing Lab: [place] [facility] [address] [place] [facility] [place] [address] MAGNESIUM 1.7 1.6-2.6 Dec 10, 2021 08:05 AM [place] [facility] PHOSPHORUS Sp ecimen Type: PLASMA Comment: [place] [id number] on Dec 10, 2021@08:31 Tests performed on Owtware (405) SN:[id number] Ordering Provid er: ISATU TODD Report Released Date/Time: Dec 10, 2021 07:22 AM Reporting Lab: [place] [facility] [address] [place] [facility] [place] [place] [address] Performing Lab: [place] [facility] [address] [place] [facility] [place] [place] [address] PHOSPHORUS 1.8 L 2.5-5.0 Dec 10, 2021 08:05 AM [place] UREA NITROGEN Specimen Type: PLASMA [facility] Comment: [place] [id number] on Dec 10, 2021@08:31 Tests performed on Owtware (405) SN:[id number] Ordering Provid er: ISATU TODD Report Released Date/Time: Dec 10, 2021 07:22 AM Reporting Lab: [place] [facility] [address] [place] [facility] [place] [place] [address] Performing Lab: [place] [facility] [address] [place] [facility] [place] [place] [address] UREA NITROGEN 8 7-25 Dec 10, 2021 08:05 AM [place] [facility] GLUCOSE Sp ecimen Type: PLASMA Comment: [place] [id number] on Dec 10, 2021@08:31 Tests performed on Owtware (405) SN:[id number] Ordering Provid er: ISATU TODD Report Released Date/Time: Dec 10, 2021 07:22 AM Reporting Lab: [place] [facility] [address] [facility] [address] Performing Lab: [place] [facility] [address] [facility] [address] GLUCOSE 144 H 65-100 Dec 10, 2021 08:05 AM [place] [facility] CALCIUM Sp ecimen Type: PLASMA Comment: [place] [id number] on Dec 10, 2021@08:31 Tests performed on Owtware (405) SN:[id number] Ordering Provid er: ISATU TODD Report Released Date/Time: Dec 10, 2021 07:22 AM Reporting Lab: [place] [facility] [address] [facility] [address] Performing Lab: [place] [facility] [address] [facility] [address] CALCIUM 8.3 L 8.5-10.5 Dec 10, 2021 08:05 AM [place] [facility] ELECTROLYTES Sp ecimen Type: PLASMA Comment: [place] [id number] on Dec 10, 2021@08:31 Tests performed on Pham [employer] (405) SN:[id number] Ordering Provid er: ISATU TODD Report Released Date/Time: Dec 10, 2021 07:22 AM Reporting Lab: [place] [facility] [address] [facility] [address] Performing Lab: [place] [facility] [address] [facility] [address] SODIUM 139 135-145 POTASSIUM 3.7 3.5-5.0 CHLORIDE 107 100-110 CARBON DIOXIDE 24 20-30 ANION GAP 8 4-16 Dec 10, 2021 08:05 [place] CREATININE WITH eGFR Specime n Type: PLASMA AM [facility] PANEL Comment: [place] [id number] on Dec 10, 2021@08:31 Tests performed on Owtware (405) SN:[id number] Ordering Provid er: ISATU TODD Report Released Date/Time: Dec 10, 2021 07:22 AM Reporting Lab: [place] [facility] [address] [facility] [address] Performing Lab: [place] [facility] [address] [facility] [address] CREATININE 0.78 0.5-1.5 eGFR(CKD-EPI 2020) >90.0 >60 Dec 10, 2021 08:05 AM [facility] CBC PROFILE Sp ecimen Type: BLOOD No comment enter ed. Ordering Provid er: ISATU TODD Report Released Date/Time: Dec 10, 2021 07:22 AM Reporting Lab: [place] [facility] [address] [facility] [address] Performing Lab: [place] [facility] [address] [facility] [address] WBC 7.0 4.5-11.0 RBC 4.54 4.23-5.66 HGB [...] Dec 09, 2021 06:46 AM [facility] MAGNESIUM Sp ecimen Type: PLASMA Comment: Tests performed on Owtware (510) SN:[id number] Ordering Provid er: ISATU TODD Report Released Date/Time: Dec 08, 2021 10:23 AM Reporting Lab: [facility]T [facility] [address] [facility] [address] Performing Lab: [facility] [address] [facility] [address] MAGNESIUM 1.6 1.6-2.6 Dec 09, 2021 [facility] P4 GLU,BUN,CREAT,LYTES,CA Speci men Type: PLASMA 06:46 AM [facility] Comment: Tests performed on Owtware (405) SN:[id number] Ordering Provid er: ISATU TODD Report Released Date/Time: Dec 08, 2021 05:00 PM Reporting Lab: [facility] [address] [facility] [address] Performing Lab: [facility] [address] [facility] [address] UREA NITROGEN 6 L 7-25 SODIUM 134 [...] Reporting Lab: [facility] [address] [facility] [address] Performing Lab: [facility] [address] [facility] [address] WBC 7.1 4.5-11.0 RBC 4.40 4.23-5.66 HGB [...] 0.00 0-0 Dec 08, 2021 06:39 AM [place] [employer] T [facility] MAGNESIUM Sp ecimen Type: PLASMA Comment: Testin g Performed on Owtware (405) SN:[id number] Ordering Provid er: ISATU TODD Report Released Date/Time: Dec 07, 2021 10:32 AM Reporting Lab: [facility] [address] [facility] [address] Performing Lab: [facility] [address] [facility] [address] MAGNESIUM 1.5 L 1.6-2.6 Dec 08, 2021 [place] [employer] T P4 GLU,BUN,CREAT,LYTES,CA Speci men Type: PLASMA 06:39 AM [facility] Comment: Testin g Performed on Owtware (405) SN:[id number] Ordering Provid er: ISATU TODD Report Released Date/Time: Dec 07, 2021 10:32 AM Reporting Lab: Sor[place] T [facility] [address] [facility] [address] Performing Lab: [facility] [address] [facility] [address] UREA NITROGEN 6 L 7-25 SODIUM 136 135-145 POTASSIUM 3.3 L 3.5-5.0 CHLORIDE 104 100-110 CARBON DIOXIDE 22 20-30 ANION GAP 10 4-16 GLUCOSE 133 H 65-100 CREATININE 0.76 0.5-1.5 CALCIUM 8.4 L 8.5-10.5 eGFR(CKD-EPI 2020) >90.0 >60 Dec 08, 2021 06:39 AM WHITE [employer] T [facility] CBC PROFILE Sp ecimen Type: BLOOD No comment enter ed. Ordering Provid er: ISATU TODD Report Released Date/Time: Dec 07, 2021 10:32 AM Reporting Lab: [facility] [address] [facility] [address] Performing Lab: [facility] [address] [facility] [address] WBC 8.4 4.5-11.0 RBC 4.75 4.23-5.66 HGB [...] ABSOLUTE NRBC 0.00 0-0 Dec 07, 2021 [facility] P4 GLU,BUN,CREAT,LYTES,CA Speci men Type: PLASMA 06:42 AM [facility] Comment: Tests performed on Owtware (405 SN:[id number] Ordering Provid er: PORFIRIO WALTERS Report Released Date/Time: Dec 06, 2021 06:57 PM Reporting Lab: [facility] [address] [facility] [address] Performing Lab: [facility] [address] [facility] [address] UREA NITROGEN 9 7-25 SODIUM 135 135-145 POTASSIUM 3.5 3.5-5.0 CHLORIDE 103 100-110 CARBON DIOXIDE 22 20-30 ANION GAP 10 4-16 GLUCOSE 92 65-100 CREATININE 0.73 0.5-1.5 CALCIUM 8.0 L 8.5-10.5 eGFR(CKD-EPI 2020) >90.0 >60 Dec 07, 2021 06:42 [place] LIVER PROFILE Specimen Typ e: PLASMA AM [facility] Comment: Tests performed on [employer] Meat Stock Clerk (405) SN:[id number] Ordering Provid er: PORFIRIO WALTERS Report Released Date/Time: Dec 06, 2021 06:57 PM Reporting Lab: [facility] [address] [facility] [address] Performing Lab: [facility] [address] [facility] [address] PROTEIN, TOTAL 5.7 L 6.0-8.5 ALBUMIN 2.4 L 3.2-5.0 BILIRUBIN, TOTAL 0.4 0.2-1.2 ALKALINE PHOSPHATASE 109 40-150 ALT(SGPT) 10 7-52 AST(SGOT) 15 5-34 FIB-4 SCORE 1.92 <2.67 Dec 07, 2021 06:42 AM [place] [facility] CBC PROFILE Specimen Type: BLOOD [facility] No comment enter ed. Ordering Provid er: PORFIRIO WALTERS Report Released Date/Time: Dec 06, 2021 06:57 PM Reporting Lab: [facility] [address] [facility] [address] Performing Lab: [facility] [address] [facility] [address] WBC 5.7 4.5-11.0 RBC 4.15 L 4.23-5.66 [...] [facility] %) AUTOMATED Comment: Tests performed on Owtware (405) SN:[id number] Ordering Provid er: ISATU TODD Report Released Date/Time: Dec 07, 2021 10:28 AM Reporting Lab: [place] [facility] [address] [facility] [address] Performing Lab: [place] [facility] [address] [facility] [address] RETICULOCYTES (%) AUTOMATED 1.23 0. 6-2.0 RETICULOCYTES (ABS) AUTOMATED 0.052 0.030-0.090 Dec 06, 2021 09:45 [place] MRSA SURVL NARES Specimen Ty pe: NARES PM [facility] DNA No comment enter ed. Ordering Provid er: ALVARO VARGHESE Report Released Date/Time: Dec 07, 2021 02:20 AM Reporting Lab: [place] [facility] [address] [facility] [address] Performing Lab: [place] [facility] [address] [facility] [address] MRSA SURVL NARES DNA NEGATIVE NEGATIVE Dec 06, 2021 06:00 [place] URINALYSIS W/REFLEX TO Speci men Type: URINE PM [facility] CULTURE No comment enter ed. Ordering Provid er: JELANI SÁNCHEZ Report Released Date/Time: Dec 06, 2021 11:57 AM Reporting Lab: [place] [facility] [address] [facility] [address] Performing Lab: [place] [facility] [address] [facility] [address] URINE COLOR Arlin YELLOW SPECIFIC GRAVITY 1.029 [...] 21, R[place] VARIANT Comment: https://www.cdc.gov/coronavirus/2019-ncov/cases-updates/variant- surveillance/variant-info.html The [employer].us SARS CoV 2 [employer] Research Assay-GX is a next-generation sequencing (NGS) assa 2021 [facility] SEQUENCING y that determine s the complete genome sequence of the SARS-CoV-2 virus. The assay contains variant-tolerant primers to broaden and improve the coverage for variant detection and increase the sensitivity 12:00 [facility] PNL(WH) of the panel to enable detection from lower viral titer samples. The assay is run on the [employer] Sequencer, which performs automated library preparation, sequencing, analysis, and reporting. PM The sequence an alysis includes determination of viral phylogenetic lineage by comparison to the reference strain Wuhan-Hu-1, GenBank: [id number]. Sequence determination may not be possible owing [...] 2021 01:13 PM Reporting Lab: [facility] [address] [facility] [address] Performing Lab: [facility] [address] [facility] [address] SARS-CoV-2 CLADE() 22C (OMICRON) SARS-CoV-2 LINEAGE() BA.2.12.1 Dec 06, 2021 12:00 [facility] COVID-19 AG SCREEN Specimen Type: NASAL CAVITY PM [facility] PANEL BINAX(405) Comment: Testi ng Performed By: Mike Briscoe Ordering Provid er: JELANI SÁNCHEZ Report Released Date/Time: Dec 08, 2021 08:23 AM Reporting Lab: [facility] [address] [facility] [address] Performing Lab: [facility] [address] [facility] [address] COVID-19 AG SCRN(wrj BINAX) POSITIVE HH NE G Dec 06, 2021 12:00 PM [facility] LIVER PROFILE Sp ecimen Type: PLASMA Comment: Testin g Performed on [employer]am [employer] (405) SN:[id number] Ordering Provid er: JELANI SÁNCHEZ Report Released Date/Time: Dec 06, 2021 11:57 AM Reporting Lab: [facility] [address] [facility] [address] Performing Lab: [facility] [address] [facility] [address] PROTEIN, TOTAL 6.6 6.0-8.5 ALBUMIN 2.8 L 3.2-5.0 BILIRUBIN, TOTAL 0.6 0.2-1.2 ALKALINE PHOSPHATASE 134 40-150 ALT(SGPT) 13 7-52 AST(SGOT) 18 5-34 FIB-4 SCORE 1.94 <2.67 Dec 06, 2021 12:00 PM [facility] Sp ecimen Type: PLASMA Comment: Tests performed on [employer] (405) SN:[id number] Ordering Provid er: JELANI SÁNCHEZ Report Released Date/Time: Dec 06, 2021 11:57 AM Reporting Lab: [facility] [address] [facility] [address] Performing Lab: [facility] [address] [facility] [address] TROPONIN II 0.03 0.00-0.29 Dec 06, 2021 [facility]T P4 GLU,BUN,CREAT,LYTES,CA Speci men Type: PLASMA 12:00 PM [facility] Comment: Testin g Performed on [employer] (405) [id number] Ordering Provid er: JELANI SÁNCHEZ Report Released Date/Time: Dec 06, 2021 11:57 AM Reporting Lab: [facility] [address] [facility] [address] Performing Lab: [facility] [address] [facility] [address] UREA NITROGEN 13 7-25 SODIUM 138 135-145 POTASSIUM 3.8 3.5-5.0 CHLORIDE 103 100-110 CARBON DIOXIDE 23 20-30 ANION GAP 12 4-16 GLUCOSE 105 H 65-100 CREATININE 0.90 0.5-1.5 CALCIUM 8.7 8.5-10.5 eGFR(CKD-EPI 2020) >90.0 >60 Dec 06, 2021 12:00 PM [facility] BNP(P) Sp ecimen Type: PLASMA Comment: Tests performed on [employer] (405) [id number] Ordering Provid er: JELANI SÁNCHEZ Report Released Date/Time: Dec 06, 2021 11:57 AM Reporting Lab: [facility] [address] [facility] [address] Performing Lab: [facility] [address] [facility] [address] BNP(P) 224.8 H 10-100 Dec 06, 2021 [facility] [place] COVID-19+FLU/RSV DIAGNOSTIC Spe cimen Type: NASOPHARYNX 12:00 PM [facility] PANEL(405) Comment: Tests performed on [employer] (405) Critical results called to and read back by: ALESHIA WILKINSON RN 12/06/21 @ 1312 Ordering Provid er: JELANI SÁNCHEZ Report Released Date/Time: Dec 06, 2021 11:57 AM Reporting Lab: [facility] [address] [facility] [id number] Performing Lab: [facility] [address] [facility] [address] FLU A(PCR) NEGATIVE NEGATIVE FLU B(PCR) NEGATIVE NEGATIVE RSV(PCR) NEGATIVE NEGATIVE COVID-19(VZD-qpc-IMPOVDTOG) DETECTED HH NO T DETECTED Dec 06, 2021 12:00 PM [facility] CBC PROFILE Sp ecimen Type: BLOOD No comment enter ed. Ordering Provid er: JELANI SÁNCHEZ Report Released Date/Time: Dec 06, 2021 11:57 AM Reporting Lab: [facility] [address] [facility] [address] Performing Lab: [facility] [address] [facility] [address] WBC 7.2 4.5-11.0 RBC 4.86 4.23-5.66 HGB [...] [facility] Dec 14, 0 2021 03:14 RIVER PM T [facility] Dec 14, 97.1 F 91 139/68 20 /min 99 % WHITE 2021 02:23 /min mm[Hg] RIVER PM T [facility] Dec 14, 0 WHITE 2021 10:15 RIVER AM T [facility] Dec 14, 97.5 F 94 138/68 18 /min 97 % 0 WHITE 2021 10:13 /min mm[Hg] RIVER AM [facility] [...] took place. Date/Time Smoking Status/Tobacco Use Comment [facility] Apr 01, 2020 01:16 PM QUIT TOBACCO USE 1-7 YEARS AGO [facility] Mar 24, 2020 03:00 PM QUIT TOBACCO USE 1-7 YEARS AGO [facility] Feb 21, 2019 04:11 PM QUIT TOBACCO USE 1-7 YEARS AGO [facility] Feb 20, 2019 03:38 PM QUIT TOBACCO USE 1-7 YEARS AGO [facility] Feb 03, 2019 09:50 AM QUIT TOBACCO USE 1-7 YEARS AGO [facility] May 25, 2016 11:53 PM QUIT TOBACCO USE IN PAST YEAR [facility] May 23, 2016 06:57 PM QUIT TOBACCO USE > 7 YEARS AGO [facility] May 19, 2016 03:55 [...] W/WO CONTRAST: MARYELLEN LONG LUCAS LARES N [id number] -1950 [facility] Exm Date: DEC 13, 2021@12:57 Req Phys: ISATU TODD Loc: OP Unknown/0 12-15-2021@13:20 Img Loc: MRI IMAGING (OOS) Service: [facility] (Case [id number] COMPLETE) MRI ABDOMEN W/WO CONTRAST (M RI Detailed) CPT:35928 Reason for Study: further characterization of a [...] new lyphadenopathy REQUESTING MD: Isatu Todd PAGER: [phone] PHONE: [phone] Weight: 232.2 lb [105.32 kg] (12/12/2021 05:00) [...] patient will need to arrange for a transfer driver to take him/her home after the [...] 15, 2021 Date Verified: DEC 15, 2021 [employer] Helper E-Sig:/ES/MARYELLEN LONG Report: MRI ABDOMEN W/WO [...] MALIGNANCY Primary Interpreting Staff: Staff AMELIA THOMAS ([employer] Machine Helper) / Dec 10, 2021 09:[address] ABDOMEN & PELVIS: RADIOLOGY,OUTSIDE [facility] LUCAS MEEK N [id number] -1950 M SERVICE [facility] Exm Date: DEC 10, 2021@09:30 Req Phys: ISATU TODD Loc: [facility]S [facility]/12-10@10:[address]: [address] SCAN (OOS) Service: [facility] (Case [id number] COMPLETE) CT ABD & PELVIS WITHOUT CONT RAST (CT Detailed) CPT:48569 Reason for Study: 71 yo male with [...] [phone] to speak to the appropriate technician automatic. Report Status: Verified Date Reported: DEC 10, 2021 Date Verified: DEC 10, 2021 [employer] E-Sig: Report: EXAM: CT abdomen and [...] ph nodes. READING PHYSICIAN: Ramone Munoz D.O. [phone] 12/10/2021 10:55 EDT [facility] National Teleradiology Program [phone] (For Medical Practitioner Use Only ) [address] [address], [facility] [address], [address] [place] [address] Attention Patients / Veterans: If you have ques tions or concerns about these test results, please contact your o rdering provider or primary care team. Primary Diagnostic Code: SIGNIFICANT ABNORMALIT Y, ATTN NEEDED Primary Interpreting Staff: RADIOLOGY,OUTSIDE SERVICE, Staff Physician / Dec 09, 2021 07:34 AM BASW (MODIFIED): JESSIE CHENEY [facility] LUCAS MEEK N [id number] -1950 [facility] Exm Date: DEC 09, 2021@07:34 Req Phys: ISATU TODD Loc: 1S MED/12-09@11:26 Img Loc: XRAY (OOS) Service: [facility] (Case [id number] COMPLETE) BASW (MODIFIED) (RAD Detaile d) CPT:56903 Contrast Media : Barium Reason for Study: dysphagia ?esophageal spasm Clinical History: Report Status: Verified Date Reported: DEC 09, 2021 Date Verified: DEC 09, 2021 [employer] Helper E-Sig:/ES/JESSIE CHENEY Report: DELISA (MODIFIED) , 12/09/2021 [...] REQUIRED Primary Interpreting Staff: JESSIE CHENEY, RADIOLOGIST ([employer] Machine Helper) /TLC Dec 06, 2021 12:[address] CHEST (INCLUDES ADRENALS): JESSIE CHENEY [facility] LUCAS MEEK N [id number] -1950 [facility] Exm Date: DEC 06, 2021@12:59 Req Phys: JELANI SÁNCHEZ Loc: [facility] ED DAYS M 1RD (Req'g Loc) Img Loc: CT SCAN (OOS) Service: Unknown (Case [id number] COMPLETE) CT THORAX W/O CONT (CT Detai led) CPT:06604 Reason for Study: Opacification right chest Clinical History: No contrast allergy BUN: 13 (12/06/21 12:00) CREATI: 0.90 (12/06/21 12:00) eGFR 05/16/21 09:43 52 L Weight: 232.6 lb [105.51 kg] (12/06/2021 11:40) BODY MASS INDEX - NO HEIGHTS FOUND Pager number: [phone] STAT orders MUST be called t o RADIOLOGY [phone] to speak to the appropriate technician automatic. 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 E-Sig:/ES/JESSIE CHENEY Report: CT THORAX W/O [...] REQUIRED Primary Interpreting Staff: JESSIE CHENEY, RADIOLOGIST ([employer] Machine Helper) Primary Interpreting Resident: PRINCE CHAMPION, Resident /BR Dec 06, 2021 11:58 AM CHEST SINGLE VIEW: JESSIE CHENEY LUCAS MEEK N [id number] -1950 [facility] Exm Date: DEC 06, 2021@11:58 Req Phys: JELANI SÁNCHEZ Pat Loc: [facility] ED DAYS M 1RD (Req'g Loc) Img Loc: XRAY (OOS) Service: Unknown (Case [id number] COMPLETE) CHEST SINGLE VIEW (RAD Detai led) CPT:69068 Proc Modifiers : PORTABLE EXAM Reason for Study: SOB, home covid test positive Clinical History: Report Status: Verified Date Reported: DEC 06, 2021 Date Verified: DEC 06, 2021 [employer] Machine Helper E-Sig:/ES/JESSIE CHENEY Report: Exam type: Chest [...] REQUIRED Primary Interpreting Staff: JESSIE CHENEY, RADIOLOGIST ([employer] Machine Helper) /TLC Pathology Reports: +/- 30 days [...] AM LR SURGICAL PATHOLOGY REPORT: [facility] MILLER [facility] LOCAL TITLE: LR SURGICAL PATHOLOGY REPORT [facility] STANDARD TITLE: PATHOLOGY REPORT DATE OF NOTE: JAN 03, 2022@10:28:01 ENTRY DATE: JAN 03, 2022@10:28:01 AUTHOR: NIURKA MILLER EXP COSIGNER: URGENCY: STATUS: COMPLETED $APHDR Reporting Lab: [facility] [CLIA# [id number]] [address] [place] [address] - - - - - - [...] automatically d ocumented from SURGERY package case #[id number] Field (#32) PRINCIPAL PRE-OP DIAGNOSIS, (#.72) OTHER [...] automatically d ocumented from SURGERY package case #[id number] Field (#34) PRINCIPAL POST-OP DIAG, (#.74) OTHER [...] Label: Lucas Meek Paperwork: Lucas Meek Cassette: [id number];..;KALYANI;.;405;[phone] Specimen is labeled: ES bx Received in formalin are several pieces of pale boyd and brown tissue, 1.2 x 0.7 cm in aggregate. Submitted entirely in 1 cassette [id number];..;KALYANI;.;405;[id number] SAW 12/15/2021 Microscopic exam: *+* MODIFIED REPORT *+* (Last modified: JAN 03, 2022@09:30:20 typed by NIURKA WADDELL) DIAGNOSIS: A. 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 Kendell long. TIARA Coombs was notified on 12/21/21. Modified on 01/03/22 to include report from [facility] stating that tumor is NEGATIVE for her2/ matheus amplification. The attending pathologist who signature mansoor ears on this report has reviewed all diagnostic slides and has edited t he gross and/or microscopic portion of this report in rendering the final pathologic diagnosis. [address] [address] CPT: 73532 /emely/ NIURKA Yeung MD Signed Jan 03, 2022@10:28 Performing Laboratory: Surgical Pathology Report Performed By: [facility] [CLIA# [id number]] [address] [place] [address] $FTR - - - - - [...] - - LUCAS MEEK STANDARD FORM 515 ID:[id number] SEX:M :1950 AGE: 71 LOC: SDM END PCP: Isatu Todd /emely/ NIURKA MILLER Staff Signed: 01/03/2022 10:28 Dec 21, 2021 11:46 AM LR SURGICAL PATHOLOGY REPORT: ST[facility]ANY MILLER [facility] LOCAL TITLE: LR SURGICAL PATHOLOGY REPORT [facility] STANDARD TITLE: PATHOLOGY REPORT DATE OF NOTE: DEC 21, 2021@11:46:59 ENTRY DATE: DEC 21, 2021@11:46:59 AUTHOR: NIURKA MILLER EXP COSIGNER: URGENCY: STATUS: COMPLETED $APHDR Reporting Lab: [facility] [CLIA# [id number]] [address] [place] [address] - - - - - - [...] automatically d ocumented from SURGERY package case #[id number] Field (#32) PRINCIPAL PRE-OP DIAGNOSIS, (#.72) OTHER [...] automatically d ocumented from SURGERY package case #[id number] Field (#34) PRINCIPAL POST-OP DIAG, (#.74) OTHER [...] Label: Lucas Meek Paperwork: Lucas Meek Cassette: [id number];..;KALYANI;.;405;[phone] Specimen is labeled: ES bx Received in formalin are several pieces of pale boyd and brown tissue, 1.2 x 0.7 cm in aggregate. Submitted entirely in 1 cassette [id number];..;KALYANI;.;405;[phone] SAW 12/15/2021 Microscopic exam: DIAGNOSIS: A. 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 Kendell long. TIARA Coombs was notified on 12/21/21. The attending pathologist who signature mansoor ears on this report has reviewed all diagnostic slides and has edited t he gross and/or microscopic portion of this report in rendering the final pathologic diagnosis. [address] [address] CPT: 85149 /emely/ NIURKA Yeung MD Signed Dec 21, 2021@11:46 Performing Laboratory: Surgical Pathology Report Performed By: [facility] [CLIA# [id number]] [address] [place] [address] $FTR - - - - - [...] - - LUCAS MEEK STANDARD FORM 515 ID:[id number] SEX:M :1950 AGE: 71 LOC: [facility] END PCP: Isatu Todd /emely/ NIURKA Yeung MD Signed: 12/21/2021 11:46 Dec 06, 2021 03:30 PM LR [facility] Reporting Lab: [facility] [CLIA# [id number]] [address] [place] [address] Accession [UID]: [id number] [[id number]] Receiv ed: Dec 06, 2021@16:14 Collection sample: BLOOD CUL T BOTTLE(NIRMAL/AERO)Collection date: Dec 06, 2021 15:30 Site/Specimen: BLOOD Provider: JELANI SÁNCHEZ Comment on specimen: LAC Test(s) ordered: BLOOD CULTURE ANAEROBI C....... completed: Dec 12, 2021 06:18 * BACTERIOLOGY FINAL REPORT => Dec 12, 2021 06:1 8 TECH CODE: [id number] Bacteriology Remark(s): NO GROWTH IN 5 DAYS =--=--=--=--=--=--=--=--=--=--=--=--=--= --=--=--=--=--=--=--=--=--=--=--=--=-- Performing Laboratory: Bacteriology Report Performed By: [facility] [CLIA# [id number]] [address] [place] [address] Dec 06, 2021 03:30 PM LR MICROBIOLOGY [facility]PORT[facility] Reporting Lab: [facility] [CLIA# [id number]] [address] [place] [address] Accession [UID]: [id number] [[id number]] Receiv ed: Dec 06, 2021@16:14 Collection sample: BLOOD CUL T BOTTLE(NIRMAL/AERO)Collection date: Dec 06, 2021 15:30 Site/Specimen: BLOOD Provider: JELANI SÁNCHEZ Comment on specimen: LAC Test(s) ordered: BLOOD CULTURE AEROBIC. ........ completed: Dec 12, 2021 06:17 * BACTERIOLOGY FINAL REPORT => Dec 12, 2021 06:1 7 TECH CODE: [id number] Bacteriology Remark(s): NO GROWTH IN 5 DAYS =--=--=--=--=--=--=--=--=--=--=--=--=--= --=--=--=--=--=--=--=--=--=--=--=--=-- Performing Laboratory: Bacteriology Report Performed By: [facility] [CLIA# [id number]] [address] [place] [address]"
--- OUTSIDE RECORDS SUMMARY | 2022-01-19 08:57 | XMS_ITS ---
DAILY HOSPITALIZATION DATA [facility] Encounter Summary Created on:December 14, 2021 Patient:LUCAS MEEK Sex:Male :1950 Author Organization [facility] [address] Address [address] [place] [id number] Support Name Relationship Address Phone YUSRA MEEK Unavailable [address] [place] [place] [address] YUSRA MEEK Unavailable [address] [place] [facility] [place] [address] CLAY MOSLEY Unavailable Unavailable SJ SANTACRUZ Unavailable [...] MEDICARE MEDICARE PART Jun 18, PART A [id number] DO KALYANI PATIENT (WNR) (M) A 2016 13A 1 U[place]AS MEDICARE MEDICARE PART Jun 18, PART B [id number] DO KALYANI PATIENT (WNR) (M) B 2016 13A 1 [place] MEDICARE MEDICARE PART Jun 18, PART A [id number] KALYANIDO PATIENT (WNR) (M) A 2017 VH81 2 [place] MEDICARE MEDICARE PART Jun 18, PART B [id number] DO KALYANI PATIENT (WNR) (M) B 2017 VH81 2 [place] UNITED MEDICARE MCR(Jun 18 [id number] Luz MEEK PATIENT HEALTHCARE ADVANTAGE NR) 2021 37 0 [facility] (WNR) Selected Encounter This section includes the information on record at OR for the Encounter. Date/Time Encounter Type Encounter Description Reason Provider Source Dec 14, 2021 10:15 Inpatient Visit DAILY HOSPITALIZATION DATA AM [facility] Encounter Template Text not used by OR Plan of Treatment: Future Appointments (+ 6 months) and Future Tests (+/- 45 days) The Plan of Treatment section includes future care activities for the patient from all OR treatmentfacilities. This section includes future appointments and future orders which are active, pending orscheduled.Future Appointments This section includes appointments that were scheduled to occur 6 months from the date of the Encounter, up to a maximum of 20 appointments. The data comes from all OR treatment facilities. Appointment Date/Time Appointment Type Appointment Facili ty Name Dec 21, 2021 08:00 AM [place] [facility] Jan 06, 2022 02:00 PM [place] [facility] Jan 10, 2022 11:30 AM [facility]ATORY - MEDICINE [facility] Jan 24, 2022 08:00 AM [place] [facility] Feb 21, 2022 10:00 AM [place] [facility] Mar 21, 2022 10:30 AM AMBULATORY - [...] the Encounter. The data comes from all OR treatment [facility]. Test Date/Time Test Type Test Details Facility Name October 31, 2021 07:37 AM Consult Order COMMUNITY CARE-EGD [facility] Cons [facility] [facility] November 15, 2021 10:37 AM Consult Order [facility] CARE-PODIATRY Cons [facility] Dec 06, 2021 12:52 PM Pharmacy [...] [place] OUTPATIENT Cons [facility] Jan 15, 2022 10:08 PM Consult Order [facility] CARE-PALLIATIVE CARE Cons [facility] Lab Results: +/- 30 days of [...] Reference Range Comment Dec 15, 2021 [place] P4 GLU,BUN,CREAT,LYTES,CA Speci men Type: PLASMA 06:43 AM [facility] Comment: Tests performed on LocaMap (405) SN:[id number] Ordering Provid er: ISATU TODD Report Released Date/Time: Dec 11, 2021 07:42 AM Reporting Lab: [facility] T [facility] [address] [facility] [address] Performing Lab: [facility] [address] [facility] [address] UREA NITROGEN 9 7-25 SODIUM 137 135-145 POTASSIUM 3.8 3.5-5.0 CHLORIDE 105 100-110 CARBON DIOXIDE 26 20-30 ANION GAP 6 4-16 GLUCOSE 102 H 65-100 CREATININE 0.64 0.5-1.5 CALCIUM 8.1 L 8.5-10.5 eGFR(CKD-EPI 2020) >90.0 >60 Dec 15, 2021 06:[address] [facility] CBC PROFILE Sp ecimen Type: BLOOD No comment enter ed. Ordering Provid er: ISATU TODD Report Released Date/Time: Dec 10, 2021 07:22 AM Reporting Lab: [facility] [facility] T [facility] [address] [facility] [address] Performing Lab: [facility] [address] [facility] [address] WBC 5.7 4.5-11.0 RBC 4.22 L 4.23-5.66 [...] ABSOLUTE NRBC 0.00 0-0 Dec 14, 2021 [facility] CYTOGENETIC Specimen Type: ESOPHAGUS 02:59 PM [facility] Comment: ~For T est: CYTOGENETIC FISH([facility] ~FISH HER 2 NUE, FFPE See full report in dineout Image display viewer/tab#LAB-Reference Ordering Provid er: NIURKA MILLER Report Released Date/Time: Dec 21, 2021 12:11 PM Reporting Lab: [facility] [address] [facility] [address] Performing Lab: [facility] CYTOGENETIC FISH([facility] comment Dec 14, 2021 [facility] P4 GLU,BUN,CREAT,LYTES,CA Speci men Type: PLASMA 06:27 AM [facility] Comment: Tests performed on LocaMap (405) SN:[id number] Ordering Provid er: ISATU TODD Report Released Date/Time: Dec 11, 2021 07:42 AM Reporting Lab: [facility] [address] [facility] [address] Performing Lab: [facility] [address] [facility] [address] UREA NITROGEN 10 7-25 SODIUM 137 135-145 [...] Reporting Lab: [facility] [address] [facility] [address] Performing Lab: [facility] [address] [facility] [address] WBC 6.0 4.5-11.0 RBC 4.29 4.23-5.66 HGB [...] ABSOLUTE NRBC 0.00 0-0 Dec 13, 2021 [facility] P4 GLU,BUN,CREAT,LYTES,CA Speci men Type: PLASMA 06:34 AM [facility] Comment: Tests performed on LocaMap (405) SN:[id number] Ordering Provid er: ISATU TODD Report Released Date/Time: Dec 11, 2021 07:42 AM Reporting Lab: [facility] [address] [facility] [address] Performing Lab: [facility] [address] [facility] [address] UREA NITROGEN 12 7-25 SODIUM 136 135-145 [...] Reporting Lab: [facility] [address] [facility] [address] Performing Lab: [facility] [address] [facility] [address] WBC 5.6 4.5-11.0 RBC 4.28 4.23-5.66 HGB [...] ABSOLUTE NRBC 0.00 0-0 Dec 12, 2021 [facility] P4 GLU,BUN,CREAT,LYTES,CA Speci men Type: PLASMA 06:21 AM [facility] Comment: Tests performed on LocaMap (405) SN:[id number] Ordering Provid er: ISATU TODD Report Released Date/Time: Dec 11, 2021 07:42 AM Reporting Lab: [facility] [address] [facility] [address] Performing Lab: [facility] [address] [facility] [address] UREA NITROGEN 11 7-25 SODIUM 139 135-145 [...] Lab: [facility] [address] [facility] [address] Performing Lab: [facility] [address] [facility] [address] WBC 5.5 4.5-11.0 RBC 4.37 4.23-5.66 HGB [...] 0.00 0-0 Dec 12, 2021 06:00 AM [employer] [facility] MAGNESIUM Sp ecimen Type: PLASMA Comment: Testin g Performed on LocaMap (405) SN:[id number] Ordering Provid er: ISATU TODD Report Released Date/Time: Dec 12, 2021 08:24 AM Reporting Lab: [place] [email or web address] [facility] [address] [facility] [address] Performing Lab: [employer] [place] [email or web address] [employer] [facility] [address] [facility] [address] MAGNESIUM 1.8 1.6-2.6 Dec 12, 2021 06:00 AM [employer]cl[employer] PHOSPHORUS Sp ecimen Type: PLASMA Comment: Testin g Performed on LocaMap (405) SN:[id number] Ordering Provid er: ISATU TODD Report Released Date/Time: Dec 12, 2021 08:24 AM Reporting Lab: [place] [email or web address] [facility] [address] [facility] [address] Performing Lab: [place] [email or web address] [address] [facility] [address] PHOSPHORUS 3.1 2.5-5.0 Dec 11, 2021 06:15 AM [employer] [place] [email or web address] [employer]cl[employer] SystemsMROC ELECTROLYTES Sp ecimen Type: PLASMA Comment: Tests performed on LocaMap (405) SN:[id number] Ordering Provid er: ISATU TODD Report Released Date/Time: Dec 10, 2021 07:22 AM Reporting Lab: [place] [email or web address] [facility] [address] [facility] [address] Performing Lab: [place] [email or web address] [facility] [address] [facility] [address] SODIUM 137 135-145 POTASSIUM 4.3 3.5-5.0 CHLORIDE 108 100-110 CARBON DIOXIDE 20 20-30 ANION GAP 9 4-16 Dec 11, 2021 06:15 AM [place] Safety [employer]T [facility] CBC PROFILE Sp ecimen Type: BLOOD Comment: Result s checked Ordering Provid er: ISATU TODD Report Released Date/Time: Dec 10, 2021 07:22 AM Reporting Lab: [place] [employer] [facility] [address] [facility] [address] Performing Lab: [place] [employer]ME[employer] [facility] [address] [facility] [address] WBC 5.8 4.5-11.0 RBC 4.37 4.23-5.66 HGB [...] ecimen Type: PLASMA Comment: Tests performed on LocaMap (700) SN:[id number] Results checked Ordering Provid er: ISATU TODD Report Released Date/Time: Dec 11, 2021 07:44 AM Reporting Lab: [place] [facility] [address] [facility] [address] Performing Lab: [place] OMEGAT ORMROC [address] [facility] [address] PHOSPHORUS 3.0 2.5-5.0 Dec 10, 2021 08:05 AM [place] [facility] MAGNESIUM Sp ecimen Type: PLASMA Comment: [place] [id number] on Dec 10, 2021@08:31 Tests performed on LocaMap (405) SN:[id number] Ordering Provid er: ISATU TODD Report Released Date/Time: Dec 10, 2021 07:22 AM Reporting Lab: [place] [facility] [address] [place] [facility] [place] [address] Performing Lab: [place] [facility] [address] [place] [facility] [place] [address] MAGNESIUM 1.7 1.6-2.6 Dec 10, 2021 08:05 AM [place] UREA NITROGEN Specimen Type: PLASMA [facility] Comment: [place] [id number] on Dec 10, 2021@08:31 Tests performed on LocaMap (405) SN:[id number] Ordering Provid er: ISATU TODD Report Released Date/Time: Dec 10, 2021 07:22 AM Reporting Lab: [place] [facility] [address] [place] [facility] [place] [address] Performing Lab: [place] [facility] [address] [place] [facility] [place] [address] UREA NITROGEN 8 7-25 Dec 10, 2021 08:05 AM [place] [facility] PHOSPHORUS Sp ecimen Type: PLASMA Comment: [place] [id number] on Dec 10, 2021@08:31 Tests performed on LocaMap (405) SN:[id number] Ordering Provid er: ISATU TODD Report Released Date/Time: Dec 10, 2021 07:22 AM Reporting Lab: [place] [facility] [address] [place] [facility] [place] [address] Performing Lab: [place] [facility] [address] [place] [facility] [place] [address] PHOSPHORUS 1.8 L 2.5-5.0 Dec 10, 2021 08:05 AM [place] [facility] GLUCOSE Sp ecimen Type: PLASMA Comment: [place] [id number] on Dec 10, 2021@08:31 Tests performed on LocaMap (405) SN:[id number] Ordering Provid er: ISATU TODD Report Released Date/Time: Dec 10, 2021 07:22 AM Reporting Lab: [place] [facility] [address] [facility] [address] Performing Lab: [place] [facility] [address] [facility] [address] GLUCOSE 144 H 65-100 Dec 10, 2021 08:05 AM [place] [facility] ELECTROLYTES Sp ecimen Type: PLASMA Comment: [place] [id number] on Dec 10, 2021@08:31 Tests performed on LocaMap (405) SN:[id number] Ordering Provid er: ISATU TODD Report Released Date/Time: Dec 10, 2021 07:22 AM Reporting Lab: [place] [facility] [address] [facility] [address] Performing Lab: [place] [facility] [address] [facility] [address] SODIUM 139 135-145 POTASSIUM 3.7 3.5-5.0 CHLORIDE 107 100-110 CARBON DIOXIDE 24 20-30 ANION GAP 8 4-16 Dec 10, 2021 08:05 [place] CREATININE WITH eGFR Specime n Type: PLASMA AM [facility] PANEL Comment: [place] [id number] on Dec 10, 2021@08:31 Tests performed on Pham Ajaline (405) SN:[id number] Ordering Provid er: ISATU TODD Report Released Date/Time: Dec 10, 2021 07:22 AM Reporting Lab: [place] [facility] [address] [facility] [address] Performing Lab: [place] [facility] [address] [facility] [address] CREATININE 0.78 0.5-1.5 eGFR(CKD-EPI 2020) >90.0 >60 Dec 10, 2021 08:05 AM [place] [facility] CBC PROFILE Sp ecimen Type: BLOOD No comment enter ed. Ordering Provid er: ISATU TODD Report Released Date/Time: Dec 10, 2021 07:22 AM Reporting Lab: [place] [facility] [address] [facility] [address] Performing Lab: [place] [facility] [address] [facility] [address] WBC 7.0 4.5-11.0 RBC 4.54 4.23-5.66 HGB [...] Sp ecimen Type: PLASMA Comment: [place] [id number] on Dec 10, 2021@08:31 Tests performed on LocaMap (405) SN:[id number] Ordering Provid er: ISATU TODD Report Released Date/Time: Dec 10, 2021 07:22 AM Reporting Lab: [facility] [address] [facility] [address] Performing Lab: [facility] [address] [facility] [address] CALCIUM 8.3 L 8.5-10.5 Dec 09, 2021 06:46 AM [place] [email or web address] [facility] MAGNESIUM Sp ecimen Type: PLASMA Comment: Tests performed on LocaMap (405) SN:[id number] Ordering Provid er: ISATU TODD Report Released Date/Time: Dec 08, 2021 10:23 AM Reporting Lab: [facility] [address] [facility] [address] Performing Lab: [facility] [address] [facility] [address] MAGNESIUM 1.6 1.6-2.6 Dec 09, 2021 [facility] P4 GLU,BUN,CREAT,LYTES,CA Speci men Type: PLASMA 06:46 AM [facility] Comment: Tests performed on LocaMap (405) SN:[id number] Ordering Provid er: ISATU TODD Report Released Date/Time: Dec 08, 2021 05:00 PM Reporting Lab: [facility] [address] [facility] [address] Performing Lab: [facility] [address] [facility] [address] UREA NITROGEN 6 L 7-25 SODIUM 134 [...] Reporting Lab: [facility] [address] [facility] [address] Performing Lab: [facility] [address] [facility] [address] WBC 7.1 4.5-11.0 RBC 4.40 4.23-5.66 HGB [...] 0.00 0-0 Dec 08, 2021 06:39 AM [place] [employer] T [facility] MAGNESIUM Sp ecimen Type: PLASMA Comment: Testin g Performed on LocaMap (405) SN:[id number] Ordering Provid er: ISATU TODD Report Released Date/Time: Dec 07, 2021 10:32 AM Reporting Lab: [facility] [address] [facility] [address] Performing Lab: [facility] [address] [facility] [address] MAGNESIUM 1.5 L 1.6-2.6 Dec 08, 2021 [place] [employer] T P4 GLU,BUN,CREAT,LYTES,CA Speci men Type: PLASMA 06:39 AM [facility] Comment: Testin g Performed on LocaMap (405) SN:[id number] Ordering Provid er: ISATU TODD Report Released Date/Time: Dec 07, 2021 10:32 AM Reporting Lab: [employer] T [facility] [address] [facility] [address] Performing Lab: [facility] [address] [facility] [address] UREA NITROGEN 6 L 7-25 SODIUM 136 135-145 POTASSIUM 3.3 L 3.5-5.0 CHLORIDE 104 100-110 CARBON DIOXIDE 22 20-30 ANION GAP 10 4-16 GLUCOSE 133 H 65-100 CREATININE 0.76 0.5-1.5 CALCIUM 8.4 L 8.5-10.5 eGFR(CKD-EPI 2020) >90.0 >60 Dec 08, 2021 06:39 AM [place] [employer] T [facility] CBC PROFILE Sp ecimen Type: BLOOD No comment enter ed. Ordering Provid er: ISATU TODD Report Released Date/Time: Dec 07, 2021 10:32 AM Reporting Lab: [facility] [address] [facility] [address] Performing Lab: [facility] [address] [facility] [address] WBC 8.4 4.5-11.0 RBC 4.75 4.23-5.66 HGB [...] ABSOLUTE NRBC 0.00 0-0 Dec 07, 2021 [facility] P4 GLU,BUN,CREAT,LYTES,CA Speci men Type: PLASMA 06:42 AM [facility] Comment: Tests performed on LocaMap (405 SN:[id number] Ordering Provid er: PORFIRIO WALTERS Report Released Date/Time: Dec 06, 2021 06:57 PM Reporting Lab: [facility] [address] [facility] [address] Performing Lab: [facility] [address] [facility] [address] UREA NITROGEN 9 7-25 SODIUM 135 135-145 POTASSIUM 3.5 3.5-5.0 CHLORIDE 103 100-110 CARBON DIOXIDE 22 20-30 ANION GAP 10 4-16 GLUCOSE 92 65-100 CREATININE 0.73 0.5-1.5 CALCIUM 8.0 L 8.5-10.5 eGFR(CKD-EPI 2020) >90.0 >60 Dec 07, 2021 06:42 [place] LIVER PROFILE Specimen Typ e: PLASMA AM [facility] Comment: Tests performed on [employer] Residential Program Manager (405) SN:[id number] Ordering Provid er: PORFIRIO WALTERS Report Released Date/Time: Dec 06, 2021 06:57 PM Reporting Lab: [facility] [address] [facility] [address] Performing Lab: [facility] [address] [facility] [address] PROTEIN, TOTAL 5.7 L 6.0-8.5 ALBUMIN 2.4 L 3.2-5.0 BILIRUBIN, TOTAL 0.4 0.2-1.2 ALKALINE PHOSPHATASE 109 40-150 ALT(SGPT) 10 7-52 AST(SGOT) 15 5-34 FIB-4 SCORE 1.92 <2.67 Dec 07, 2021 06:42 AM [place] [facility] CBC PROFILE Specimen Type: BLOOD [facility] No comment enter ed. Ordering Provid er: PORFIRIO WALTERS Report Released Date/Time: Dec 06, 2021 06:57 PM Reporting Lab: [facility] [address] [facility] [address] Performing Lab: [facility] [address] [facility] [address] WBC 5.7 4.5-11.0 RBC 4.15 L 4.23-5.66 [...] VAMROC %) AUTOMATED Comment: Tests performed on LocaMap (405) SN:[id number] Ordering Provid er: ISATU TODD Report Released Date/Time: Dec 07, 2021 10:28 AM Reporting Lab: [place] [facility] [address] [facility] [address] Performing Lab: [place] [facility] [address] [facility] [address] RETICULOCYTES (%) AUTOMATED 1.23 0. 6-2.0 RETICULOCYTES (ABS) AUTOMATED 0.052 0.030-0.090 Dec 06, 2021 09:45 [place] MRSA SURVL NARES Specimen Ty pe: NARES PM [facility] DNA No comment enter ed. Ordering Provid er: ALVARO VARGHESE Report Released Date/Time: Dec 07, 2021 02:20 AM Reporting Lab: [place] [facility] [address] [facility] [address] Performing Lab: [place] [facility] [address] [facility] [address] MRSA SURVL NARES DNA NEGATIVE NEGATIVE Dec 06, 2021 06:00 [place] URINALYSIS W/REFLEX TO Speci men Type: URINE PM [facility] CULTURE No comment enter ed. Ordering Provid er: JELANI SÁNCHEZ Report Released Date/Time: Dec 06, 2021 11:57 AM Reporting Lab: [place] [facility] [address] [facility] [address] Performing Lab: [place] [facility] [address] [facility] [address] URINE COLOR Arlin YELLOW SPECIFIC GRAVITY 1.029 [...] 21, [place]IANT Comment: https://www.cdc.gov/coronavirus/2019-ncov/cases-updates/variant- surveillance/variant-info.html The [employer] SARS CoV 2 [employer] Research Assay-GX is a next-generation sequencing (NGS) assa 2021 [facility] SEQUENCING y that determine s the complete genome sequence of the SARS-CoV-2 virus. The assay contains variant-tolerant primers to broaden and improve the coverage for variant detection and increase the sensitivity 12:00 [facility] PNL(WH) of the panel to enable detection from lower viral titer samples. The assay is run on the ZoomInfo Sequencer, which performs automated library preparation, sequencing, analysis, and reporting. PM The sequence an alysis includes determination of viral phylogenetic lineage by comparison to the reference strain Wuhan-Hu-1, GenBank: [id number]. Sequence determination may not be possible owing [...] [facility] [address] [facility] [address] Performing Lab: [facility] [address] [facility] [address] SARS-CoV-2 CLADE() 22C (OMICRON) SARS-CoV-2 LINEAGE() BA.2.12.1 Dec 06, 2021 12:00 [facility] COVID-19 AG SCREEN Specimen Type: NASAL CAVITY PM [facility] PANEL BINAX(405) Comment: Testi ng Performed By: Mike Briscoe Ordering Provid er: JELANI SÁNCHEZ Report Released Date/Time: Dec 08, 2021 08:23 AM Reporting Lab: [facility] [address] [facility] [address] Performing Lab: [facility] [address] [facility] [address] COVID-19 AG SCRN(wrj BINAX) POSITIVE HH NE G Dec 06, 2021 12:00 PM [facility] TROPONIN II Sp ecimen Type: PLASMA Comment: Tests performed on [employer]am Residential Program Manager (405) SN:[id number] Ordering Provid er: JELANI SÁNCHEZ Report Released Date/Time: Dec 06, 2021 11:57 AM Reporting Lab: [facility] [address] [place] [facility] [place] [address] Performing Lab: [facility] [address] [facility] [address] TROPONIN II 0.03 0.00-0.29 Dec 06, 2021 12:00 PM [facility] LIVER PROFILE Sp ecimen Type: PLASMA Comment: Testin g Performed on [employer]am Residential Program Manager (405) SN:[id number] Ordering Provid er: JELANI SÁNCHEZ Report Released Date/Time: Dec 06, 2021 11:57 AM Reporting Lab: [facility] [address] [facility] [address] Performing Lab: [facility] [address] [facility] [address] PROTEIN, TOTAL 6.6 6.0-8.5 ALBUMIN 2.8 L 3.2-5.0 BILIRUBIN, TOTAL 0.6 0.2-1.2 ALKALINE PHOSPHATASE 134 40-150 ALT(SGPT) 13 7-52 AST(SGOT) 18 5-34 FIB-4 SCORE 1.94 <2.67 Dec 06, 2021 [place] P4 GLU,BUN,CREAT,LYTES,CA Speci men Type: PLASMA 12:00 PM [facility] Comment: Testin g Performed on [employer]am Residential Program Manager (405) SN:[id number] Ordering Provid er: JELANI SÁNCHEZ Report Released Date/Time: Dec 06, 2021 11:57 AM Reporting Lab: [place] [facility] [address] [facility] [address] Performing Lab: [place] [facility] [address] [facility] [address] UREA NITROGEN 13 7-25 SODIUM 138 135-145 POTASSIUM 3.8 3.5-5.0 CHLORIDE 103 100-110 CARBON DIOXIDE 23 20-30 ANION GAP 12 4-16 GLUCOSE 105 H 65-100 CREATININE 0.90 0.5-1.5 CALCIUM 8.7 8.5-10.5 eGFR(CKD-EPI 2020) >90.0 >60 Dec 06, 2021 12:[address] [facility] Sp ecimen Type: PLASMA Comment: Tests performed on [employer] (405) [id number] Ordering Provid er: JELANI SÁNCHEZ Report Released Date/Time: Dec 06, 2021 11:57 AM Reporting Lab: [facility] [address] [facility] [address] Performing Lab: [facility] [address] [facility] [address] BNP(P) 224.8 H 10-100 Dec 06, 2021 [facility] [place] COVID-19+FLU/RSV DIAGNOSTIC Spe cimen Type: NASOPHARYNX 12:00 PM [facility] PANEL(405) Comment: Tests performed on [employer] (405) Critical results called to and read back by: ALESHIA WILKINSON RN 12/06/21 @ 1312 Ordering Provid er: JELANI SÁNCHEZ Report Released Date/Time: Dec 06, 2021 11:57 AM Reporting Lab: [facility] [place] [facility] [address] [facility] [address] Performing Lab: [place] [facility] [address] [facility] [address] FLU A(PCR) NEGATIVE NEGATIVE FLU B(PCR) NEGATIVE NEGATIVE RSV(PCR) NEGATIVE NEGATIVE COVID-19([id number]) DETECTED HH NO T DETECTED Dec 06, 2021 12:00 [facility] ecimen Type: BLOOD No comment enter ed. Ordering Provid er: JELANI SÁNCHEZ Report Released Date/Time: Dec 06, 2021 11:57 AM Reporting Lab: [facility] [address] [facility] [address] Performing Lab: [facility] [address] [facility] [address] WBC 7.2 4.5-11.0 RBC 4.86 4.23-5.66 HGB [...] WHITE 2021 08:47 /min mm[Hg] RIVER PM [facility] Dec 14, 0 2021 03:14 RIVER PM T [facility] Dec 14, 97.1 F 91 139/68 20 /min 99 % WHITE 2021 02:23 /min mm[Hg] RIVER PM T [facility] Dec 14, 0 WHITE 2021 10:15 RIVER AM T [facility] Dec 14, 97.5 F 94 138/68 18 /min 97 % 0 WHITE 2021 10:13 /min mm[Hg] RIVER AM [facility] Social History: Smoking Status (Most current) and Tobacco Use (All prior to encounter date) This section includes the most current, and the historical, smoking and tobacco-related health factors from the OR facility where the Encounter took place.Current Smoking Status This section includes the most current smoking, or tobacco-related health factor, from the OR facility where the Encounter took place. Date/Time Current Smoking Status Comment Facility Dec 06, 2021 11:40 AM QUIT TOBACCO USE > 7 YEARS AGO [facility] Tobacco Use History This section includes a history of the smoking, or tobacco- related health factors, that were collected on or before the date of the Encounter. The data comes from the OR facility where the Encounter took place. Date/Time Smoking Status/Tobacco Use Comment [facility] Apr 01, 2020 01:16 [...] QUIT TOBACCO USE IN PAST YEAR CAREY DOLYE [facility] May 01, 2016 03:11 PM QUIT TOBACCO USE IN PAST YEAR CAREY DOYLE [facility] May 01, 2016 11:19 AM QUIT TOBACCO USE IN PAST YEAR CAREY DOYLE [facility] Mar 16, 2016 12:50 PM V1-PT DECLINES REF TO TOBACCO CAREY DOYLE [facility] CESS PRGM Mar 16, 2016 12:50 PM V1-PT THINKING ABOUT QUIT CAREY DOYLE [facility] TOBACCO USE Aug 12, 2015 08:48 AM CURRENT SMOKER CAREY Yates [facility] Radiology Reports: +/- 30 days of [...] the Encounter. The data comes from all OR treatment facilities. Date/Time Radiology Report Provider Source Dec 13, 2021 12:57 PM MRI ABDOMEN W/WO CONTRAST: MARYELLEN LONG LUCAS LARES N [id number] -1950 [facility] Exm Date: DEC 13, 2021@12:57 Req Phys: ISATU TODD Loc: OP Unknown/0 12-15-2021@13:20 Img Loc: MRI IMAGING (OOS) Service: [facility] MEDICINE (Case [id number] COMPLETE) MRI ABDOMEN W/WO CONTRAST (M RI Detailed) CPT:83796 Reason for Study: further characterization of a [...] new lyphadenopathy REQUESTING MD: Isatu Todd PAGER: [phone] PHONE: [phone] Weight: 232.2 lb [105.32 kg] (12/12/2021 05:00) [...] will need to arrange for a armored 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 to take him/her home after [...] 15, 2021 Date Verified: DEC 15, 2021 Founder And Chief Executive Officer E-Sig:/ES/MARYELLEN LONG Report: MRI ABDOMEN W/WO [...] MALIGNANCY Primary Interpreting Staff: Staff AMELIA THOMAS (Founder And Chief Executive Officer) / Dec 10, 2021 09:[address] ABDOMEN & PELVIS: RADIOLOGY,OUTSIDE [facility] LUCAS MEEK N [id number] -1950 M SERVICE [facility] Exm Date: DEC 10, 2021@09:30 Req Phys: ISATU TODD Loc: 1S [facility]/12-10@10:57 Img Loc: CT SCAN (OOS) Service: [facility] (Case [id number] COMPLETE) CT ABD & PELVIS WITHOUT CONT RAST (CT Detailed) CPT:27671 Reason for Study: 71 yo male with [...] RADIOLOGY [phone] to speak to the appropriate certified bench jeweler technician. Report Status: Verified Date Reported: DEC 10, 2021 Date Verified: DEC 10, 2021 Founder And Chief Executive Officer E-Sig: Report: EXAM: CT abdomen and [...] ph nodes. READING PHYSICIAN: Ramone Munoz D.O. [phone] 12/10/2021 10:55 EDT [facility] National Teleradiology Program [phone] (For Medical Practitioner Use Only ) [address] [facility], [facility] [address] [place] [address] Attention Patients / Veterans: If you have ques tions or concerns about these test results, please contact your o rdering provider or primary care team. Primary Diagnostic Code: SIGNIFICANT ABNORMALIT Y, ATTN NEEDED Primary Interpreting Staff: RADIOLOGY,OUTSIDE SERVICE, Staff Physician / Dec 09, 2021 07:34 AM BASW (MODIFIED): JESSIE CHENEY [facility] LUCAS MEEK N [id number] -1950 [facility] Exm Date: DEC 09, 2021@07:34 Req Phys: ISATU TODD Loc: 1S MED/12-09@11:26 Img Loc: XRAY (OOS) Service: [facility] MEDICINE (Case [id number] COMPLETE) BASW (MODIFIED) (RAD Detaile d) CPT:53271 Contrast Media : Barium Reason for Study: dysphagia ?esophageal spasm Clinical History: Report Status: Verified Date Reported: DEC 09, 2021 Date Verified: DEC 09, 2021 Founder And Chief Executive Officer E-Sig:/ES/JESSIE CHENEY Report: DELISA (MODIFIED) , 12/09/2021 [...] NO IMMEDIATE ATTENTION REQUIRED Primary Interpreting Staff: JSESIE CHENEY, RADIOLOGIST (Founder And Chief Executive Officer) /TLC Dec 06, 2021 12:[address] CHEST (INCLUDES ADRENALS): JESSIE CHENEY [facility] LUCAS MEEK N [id number] -1950 [facility] Exm Date: DEC 06, 2021@12:59 Req Phys: JELANI SÁNCHEZ Loc: [facility] ED DAYS M 1RD (Req'g Loc) Img Loc: CT SCAN (OOS) Service: Unknown (Case [id number] COMPLETE) CT THORAX W/O CONT (CT Detai led) CPT:12180 Reason for Study: Opacification right chest Clinical History: No contrast allergy BUN: 13 (12/06/21 12:00) CREATI: 0.90 (12/06/21 12:00) eGFR 05/16/21 09:43 52 L Weight: 232.6 lb [105.51 kg] (12/06/2021 11:40) BODY MASS INDEX - NO HEIGHTS FOUND Pager number: [phone] STAT orders MUST be called t o RADIOLOGY [phone] to speak to the appropriate certified bench jeweler technician. Indications - Other: Opacification right chest, covid positive, lung cancer histo Report Status: Verified Date Reported: DEC 06, 2021 Date Verified: DEC 06, 2021 Founder And Chief Executive Officer E-Sig:/ES/JESSIE CHENEY Report: CT THORAX W/O [...] REQUIRED Primary Interpreting Staff: JESSIE CHENEY, RADIOLOGIST (Founder And Chief Executive Officer) Primary Interpreting Resident: PRINCE CHAMPION, Resident /BR Dec 06, 2021 11:58 AM CHEST SINGLE VIEW: JESSIE CHENEY LUCAS MEEK N [id number] -1950 [facility] Exm Date: DEC 06, 2021@11:58 Req Phys: JELANI SÁNCHEZ Pat Loc: [facility] ED DAYS M 1RD (Req'g Loc) Img Loc: XRAY (OOS) Service: Unknown (Case [id number] COMPLETE) CHEST SINGLE VIEW (RAD Detai led) CPT:77509 Proc Modifiers : PORTABLE EXAM Reason for Study: SOB, home covid test positive Clinical History: Report Status: Verified Date Reported: DEC 06, 2021 Date Verified: DEC 06, 2021 Founder And Chief Executive Officer E-Sig:/ES/JESSIE CHENEY Report: Exam type: Chest [...] REQUIRED Primary Interpreting Staff: JESSIE CHENEY, RADIOLOGIST (Founder And Chief Executive Officer) /TLC Pathology Reports: +/- 30 days [...] the Encounter. The data comes from all OR treatment facilities. Date/Time Pathology Report Provider Source Jan 03, 2022 10:28 AM LR SURGICAL PATHOLOGY REPORT: STEFANY MILLER [facility] LOCAL TITLE: LR SURGICAL PATHOLOGY REPORT [facility] STANDARD TITLE: PATHOLOGY REPORT DATE OF NOTE: JAN 03, 2022@10:28:01 ENTRY DATE: JAN 03, 2022@10:28:01 AUTHOR: NIURKA MILLER EXP COSIGNER: URGENCY: STATUS: COMPLETED $APHDR Reporting Lab: [facility] [CLIA# [id number]] [address] [place] [address] - - - - - - [...] automatically d ocumented from SURGERY package case #[id number] Field (#32) PRINCIPAL PRE-OP DIAGNOSIS, (#.72) OTHER [...] automatically d ocumented from SURGERY package case #[id number] Field (#34) PRINCIPAL POST-OP DIAG, (#.74) OTHER [...] Label: Lucas Meek Paperwork: Lucas Meek Cassette: [id number];..;KALYANI;.;405;[id number] Specimen is labeled: ES bx Received in formalin are several pieces of pale boyd and brown tissue, 1.2 x 0.7 cm in aggregate. Submitted entirely in 1 cassette [id number];..;KALYANI;.;405;[id number] SAW 12/15/2021 Microscopic exam: *+* MODIFIED REPORT *+* (Last modified: JAN 03, 2022@09:30:20 typed by NIURKA WADDELL) DIAGNOSIS: A. 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 Kendell long. TIARA Coombs was notified on 12/21/21. Modified on 01/03/[address] to include report from [facility] stating that tumor is NEGATIVE for her2/ matheus amplification. The attending pathologist who signature mansoor ears on this report has reviewed all diagnostic slides and has edited t he gross and/or microscopic portion of this report in rendering the final pathologic diagnosis. [address] [address] CPT: 51476 /emely/ NIURKA Yeung MD Signed Jan 03, 2022@10:28 Performing Laboratory: Surgical Pathology Report Performed By: CAREY MONTOYA [facility] [CLIA# [id number]] [address] [place] [address] $FTR - - - - - [...] - - LUCAS MEEK STANDARD FORM 515 ID:[id number] SEX:M :1950 AGE: 71 LOC: SDM END PCP: Isatu Todd /emely/ NIURKA MILLER Staff Signed: 01/03/2022 10:28 Dec 21, 2021 11:46 AM LR SURGICAL [facility] T[facility]: LR SURGICAL PATHOLOGY REPORT [facility] STANDARD TITLE: PATHOLOGY REPORT DATE OF NOTE: DEC 21, 2021@11:46:59 ENTRY DATE: DEC 21, 2021@11:46:59 AUTHOR: NIURKA MILLER EXP COSIGNER: URGENCY: STATUS: COMPLETED $APHDR Reporting Lab: [facility] [CLIA# [id number]] [address] [place] [address] - - - - - - [...] automatically d ocumented from SURGERY package case #[id number] Field (#32) PRINCIPAL PRE-OP DIAGNOSIS, (#.72) OTHER [...] automatically d ocumented from SURGERY package case #[id number] Field (#34) PRINCIPAL POST-OP DIAG, (#.74) OTHER [...] Label: Lucas Meek Paperwork: Lucas Meek Cassette: [id number];..;KALYANI;.;405;[id number] Specimen is labeled: ES bx Received in formalin are several pieces of pale boyd and brown tissue, 1.2 x 0.7 cm in aggregate. Submitted entirely in 1 cassette [id number];..;KALYANI;.;405;[id number] SAW 12/15/2021 Microscopic exam: DIAGNOSIS: A. 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 Kendell long. TIARA Coombs was notified on 12/21/21. The attending pathologist who signature mansoor ears on this report has reviewed all diagnostic slides and has edited t he gross and/or microscopic portion of this report in rendering the final pathologic diagnosis. [address] [address] CPT: 95532 /emely/ NIURKA Yeung MD Signed Dec 21, 2021@11:46 Performing Laboratory: Surgical Pathology Report Performed By: [facility] [CLIA# [id number]] [address] [place] [address] $FTR - - - - - [...] - - LUCAS MEEK STANDARD FORM 515 ID:[id number] SEX:M :1950 AGE: 71 LOC: [facility] END PCP: Isatu Todd /emely/ NIURKA Yeung MD Signed: 12/21/2021 11:46 Dec 06, 2021 03:30 PM LR [facility] Reporting Lab: [facility] [CLIA# [id number]] [address] [place] [address] Accession [UID]: [id number] [[id number]] Receiv ed: Dec 06, 2021@16:14 Collection sample: BLOOD CUL T BOTTLE(NIRMAL/AERO)Collection date: Dec 06, 2021 15:30 Site/Specimen: BLOOD Provider: JELANI SÁNCHEZ Comment on specimen: LAC Test(s) ordered: BLOOD CULTURE ANAEROBI C....... completed: Dec 12, 2021 06:18 * BACTERIOLOGY FINAL REPORT => Dec 12, 2021 06:1 8 TECH CODE: [id number] Bacteriology Remark(s): NO GROWTH IN 5 DAYS =--=--=--=--=--=--=--=--=--=--=--=--=--= --=--=--=--=--=--=--=--=--=--=--=--=-- Performing Laboratory: Bacteriology Report Performed By: [facility] [CLIA# [id number]] [address] [place] [address] Dec 06, 2021 03:30 PM LR MICROBIOLOGY REPORT: [facility] Reporting Lab: [facility] [CLIA# [id number]] [address] [place] [address] Accession [UID]: [id number] [[id number]] Receiv ed: Dec 06, 2021@16:14 Collection sample: BLOOD CUL T BOTTLE(NIRMAL/AERO)Collection date: Dec 06, 2021 15:30 Site/Specimen: BLOOD Provider: JELANI SÁNCHEZ Comment on specimen: LAC Test(s) ordered: BLOOD CULTURE AEROBIC. ........ completed: Dec 12, 2021 06:17 * BACTERIOLOGY FINAL REPORT => Dec 12, 2021 06:1 7 TECH CODE: [id number] Bacteriology Remark(s): NO GROWTH IN 5 DAYS =--=--=--=--=--=--=--=--=--=--=--=--=--= --=--=--=--=--=--=--=--=--=--=--=--=-- Performing Laboratory: Bacteriology Report Performed By: [facility] [CLIA# [id number]] [address] [place] [address]
--- OUTSIDE RECORDS SUMMARY | 2022-01-19 08:58 | XMS_ITS ---
DAILY HOSPITALIZATION DATA [facility] SA[facility] Encounter Summary Created on:December 14, 2021 Patient:LUCAS MEEK Sex:Male :1950 Author Organization [facility] Address [address] [place] [id number] Support Name Relationship Address Phone YUSRA MEEK Unavailable [address] [place] [address] YUSRA MEEK Unavailable [address] [place] [address] CLAY MOSLEY Unavailable Unavailable SJ SANTACRUZ Unavailable [...] MEDICARE MEDICARE PART Jun 18, PART B [id number] DO KALYANI PATIENT (WNR) (M) B 2016 13A 1 UGLAS MEDICARE MEDICARE PART Jun 18, PART A [id number] DO KALYANI PATIENT (WNR) (M) A 2017 VH81 2 LAS MEDICARE MEDICARE PART Jun 18, PART A [id number] KALYANIDO PATIENT (WNR) (M) A 2016 13A 1 UGLAS MEDICARE MEDICARE PART Jun 18, PART B [id number] DO KALYANI PATIENT (WNR) (M) B 2017 VH81 2 UGLAS UNITED MEDICARE MCR(Jun [id number] Luz MEEK PATIENT HEALTHCARE ADVANTAGE NR) 2021 37 0 [facility] (WNR) Selected Encounter This section includes the information on record at [place] for the Encounter. Date/Time Encounter Type Encounter Description Reason Provider Source Dec 14, 2021 11:50 Inpatient Visit DAILY HOSPITALIZATION DATA AM [facility] Encounter Template Text not used by [place] Plan of Treatment: Future Appointments (+ 6 months) and Future Tests (+/- 45 days) The Plan of Treatment section includes future care activities for the patient from all [place] treatmentfacilities. This section includes future appointments and future orders which are active, pending orscheduled.Future Appointments This section includes appointments that were scheduled to occur 6 months from the date of the Encounter, up to a maximum of 20 appointments. The data comes from all [place] treatment facilities. Appointment Date/Time Appointment Type Appointment Facili ty Name Dec 21, 2021 08:00 AM AM[place]ONE [place] [facility] Jan 06, 2022 02:00 PM [place] [facility] Jan 10, 2022 11:30 AM [facility] MEDICINE [facility] Jan 24, 2022 08:00 [place] [facility] Feb 21, 2022 10:00 AM [place] - [place] [facility] Mar 21, 2022 10:30 AM [...] the Encounter. The data comes from all [place] treatment [facility]. Test Date/Time Test Type Test Details Facility Name October 31, 2021 07:37 AM Consult Order [facility]ITY [facility]ARE-EGD [facility] Cons [facility] November 15, 2021 10:37 AM Consult Order [facility] CARE-PODIATRY [facility] Dec 06, 2021 12:52 PM Pharmacy [...] [place] OUTPATIENT Cons [facility] Jan 15, 2022 10:08 PM Consult Order [facility] CARE-PALLIATIVE CARE [facility] Lab Results: +/- 30 days of [...] Reference Range Comment Dec 15, 2021 [place] P4 GLU,BUN,CREAT,LYTES,CA Speci men Type: PLASMA 06:43 AM [facility] Comment: Tests performed on Galleon (405) SN:[id number] Ordering Provid er: ISATU TODD Report Released Date/Time: Dec 11, 2021 07:42 AM Reporting Lab: [facility] [address] [facility] [address] Performing Lab: [facility] [address] [facility] [address] UREA NITROGEN 9 7-25 SODIUM 137 135-145 POTASSIUM 3.8 3.5-5.0 CHLORIDE 105 100-110 CARBON DIOXIDE 26 20-30 ANION GAP 6 4-16 GLUCOSE 102 H 65-100 CREATININE 0.64 0.5-1.5 CALCIUM 8.1 L 8.5-10.5 eGFR(CKD-EPI 2020) >90.0 >60 Dec 15, 2021 06:43 AM [facility] CBC PROFILE Sp ecimen Type: BLOOD No comment enter ed. Ordering Provid er: ISATU TODD Report Released Date/Time: Dec 10, 2021 07:22 AM Reporting Lab: [facility] [address] [facility] [address] Performing Lab: [facility] [address] [facility] [address] WBC 5.7 4.5-11.0 RBC 4.22 L 4.23-5.66 [...] CYTOGENETIC Specimen Type: ESOPHAGUS 02:59 PM [facility]) Comment: ~For T est: CYTOGENETIC FISH([facility]) ~FISH HER 2 NUE, FFPE See full report in Compumatrix Image display viewer/tab#LAB-Reference Ordering Provid er: NIURKA MILLER Report Released Date/Time: Dec 21, 2021 12:11 PM Reporting Lab: [facility] [address] [facility] [address] Performing Lab: [facility] CYTOGENETIC FISH([facility]) comment Dec 14, 2021 [facility] P4 GLU,BUN,CREAT,LYTES,CA Speci men Type: PLASMA 06:27 AM [facility] Comment: Tests performed on Galleon (405) SN:[id number] Ordering Provid er: ISATU TODD Report Released Date/Time: Dec 11, 2021 07:42 AM Reporting Lab: [facility] [address] [facility] [address] Performing Lab: [facility] [address] [facility] [address] UREA NITROGEN 10 7-25 SODIUM 137 135-145 [...] Lab: [facility] [address] [facility] [address] Performing Lab: [facility] [address] [facility] [address] WBC 6.0 4.5-11.0 RBC 4.29 4.23-5.66 HGB [...] [facility] Comment: Tests performed on Galleon (405) SN:[id number] Ordering Provid er: ISATU TODD Report Released Date/Time: Dec 11, 2021 07:42 AM Reporting Lab: [facility] [address] [facility] [address] Performing Lab: [facility] [address] [facility] [address] UREA NITROGEN 12 7-25 SODIUM 136 135-145 [...] Lab: [facility] [address] [facility] [address] Performing Lab: [facility] [address] [facility] [address] WBC 5.6 4.5-11.0 RBC 4.28 4.23-5.66 HGB [...] [facility] Comment: Tests performed on Galleon (405) SN:[id number] Ordering Provid er: ISATU TODD Report Released Date/Time: Dec 11, 2021 07:42 AM Reporting Lab: [facility] [address] [facility] [address] Performing Lab: [facility] [address] [facility] [address] UREA NITROGEN 11 7-25 SODIUM 139 135-145 [...] 07:22 AM Reporting Lab: [facility] [address] [facility] [address] Performing Lab: [facility] [address] [facility] [address] WBC 5.5 4.5-11.0 RBC 4.37 4.23-5.66 HGB [...] 0.00 0-0 Dec 12, 2021 06:00 AM [employer]DrummerT [facility] PHOSPHORUS Sp ecimen Type: PLASMA Comment: Testin g Performed on Galleon (405) SN:[id number] Ordering Provid er: ISATU TODD Report Released Date/Time: Dec 12, 2021 08:24 AM Reporting Lab: [place] [facility] [address] [facility] [address] Performing Lab: [employer] [place] [facility] [address] [facility] [address] PHOSPHORUS 3.1 2.5-5.0 Dec 12, 2021 06:00 AM [facility] MAGNESIUM Sp ecimen Type: PLASMA Comment: Testin g Performed on Galleon (405) SN:[id number] Ordering Provid er: ISATU TODD Report Released Date/Time: Dec 12, 2021 08:24 AM Reporting Lab: [place] [facility] [address] [facility] [address] Performing Lab: [place] [facility] [address] [facility] [address] MAGNESIUM 1.8 1.6-2.6 Dec 11, 2021 06:15 AM [facility] ELECTROLYTES Sp ecimen Type: PLASMA Comment: Tests performed on Galleon (405) SN:[id number] Ordering Provid er: ISATU TODD Report Released Date/Time: Dec 10, 2021 07:22 AM Reporting Lab: [place] [facility] [address] [facility] [address] Performing Lab: [place] [facility] [address] [facility] [address] SODIUM 137 135-145 POTASSIUM 4.3 3.5-5.0 CHLORIDE 108 100-110 CARBON DIOXIDE 20 20-30 ANION GAP 9 4-16 Dec 11, 2021 06:15 AM [facility] [employer] OnlineT [facility] CBC PROFILE Sp ecimen Type: BLOOD Comment: Result s checked Ordering Provid er: ISATU TODD Report Released Date/Time: Dec 10, 2021 07:22 AM Reporting Lab: [place] OMEGAT [facility] [address] [facility] [address] Performing Lab: [facility] [place] [facility] [address] [facility] [address] WBC 5.8 4.5-11.0 RBC 4.37 4.23-5.66 HGB [...] ecimen Type: PLASMA Comment: Tests performed on Galleon (196) SN:[id number] Results checked Ordering Provid er: ISATU TODD Report Released Date/Time: Dec 11, 2021 07:44 AM Reporting Lab: [facility] [facility] [address] [facility] [address] Performing Lab: [place] OMEGAT [facility] [address] [facility] [address] PHOSPHORUS 3.0 2.5-5.0 Dec 10, 2021 08:05 AM [place] [facility] MAGNESIUM Sp ecimen Type: PLASMA Comment: [place] [id number] on Dec 10, 2021@08:31 Tests performed on Galleon (405) SN:[id number] Ordering Provid er: ISATU TODD Report Released Date/Time: Dec 10, 2021 07:22 AM Reporting Lab: [place] [facility] [address] [place] [facility] [place] [address] Performing Lab: [place] [facility] [address] [place] [facility] [place] [address] MAGNESIUM 1.7 1.6-2.6 Dec 10, 2021 08:05 AM [place] [facility] PHOSPHORUS Sp ecimen Type: PLASMA Comment: [place] [id number] on Dec 10, 2021@08:31 Tests performed on Galleon (405) SN:[id number] Ordering Provid er: ISATU TODD Report Released Date/Time: Dec 10, 2021 07:22 AM Reporting Lab: [place] [facility] [address] [place] [facility] [place] [address] Performing Lab: [place] [facility] [address] [place] [facility] [place] [address] PHOSPHORUS 1.8 L 2.5-5.0 Dec 10, 2021 08:05 AM [place] UREA NITROGEN Specimen Type: PLASMA [facility] Comment: [place] [id number] on Dec 10, 2021@08:31 Tests performed on Galleon (405) SN:[id number] Ordering Provid er: ISATU TODD Report Released Date/Time: Dec 10, 2021 07:22 AM Reporting Lab: [place] [facility] [address] [place] [facility] [place] [address] Performing Lab: [place] [facility] [address] [place] [facility] [place] [address] UREA NITROGEN 8 7-25 Dec 10, 2021 08:05 AM [place] [facility] ELECTROLYTES Sp ecimen Type: PLASMA Comment: [place] [id number] on Dec 10, 2021@08:31 Tests performed on Galleon (405) SN:[id number] Ordering Provid er: ISATU TODD Report Released Date/Time: Dec 10, 2021 07:22 AM Reporting Lab: [place] [facility] [address] [facility] [address] Performing Lab: [place] [facility] [address] [facility] [address] SODIUM 139 135-145 POTASSIUM 3.7 3.5-5.0 CHLORIDE 107 100-110 CARBON DIOXIDE 24 20-30 ANION GAP 8 4-16 Dec 10, 2021 08:05 AM [place] [facility] GLUCOSE Sp ecimen Type: PLASMA Comment: [place] [id number] on Dec 10, 2021@08:31 Tests performed on Galleon (405) SN:[id number] Ordering Provid er: ISATU TODD Report Released Date/Time: Dec 10, 2021 07:22 AM Reporting Lab: [place] [facility] [address] [facility] Performing Lab: [place] OME[place] [facility] [address] [facility] [address] GLUCOSE 144 H 65-100 Dec 10, 2021 08:05 AM [place] [facility] CBC PROFILE Sp ecimen Type: BLOOD No comment enter ed. Ordering Provid er: ISATU TODD Report Released Date/Time: Dec 10, 2021 07:22 AM Reporting Lab: [place] [facility] [address] [facility] [address] Performing Lab: [place] [facility] [address] [facility] [address] WBC 7.0 4.5-11.0 RBC 4.54 4.23-5.66 HGB [...] Sp ecimen Type: PLASMA Comment: [place] [id number] on Dec 10, 2021@08:31 Tests performed on Pham 9+ (405) SN:[id number] Ordering Provid er: ISATU TODD Report Released Date/Time: Dec 10, 2021 07:22 AM Reporting Lab: [place] [facility] [address] [facility] [address] Performing Lab: [place] [facility] [address] [facility] [address] CALCIUM 8.3 L 8.5-10.5 Dec 10, 2021 08:05 [place] CREATININE WITH eGFR Specime n Type: PLASMA AM [facility] PANEL Comment: [place] [id number] on Dec 10, 2021@08:31 Tests performed on Galleon (405) SN:[id number] Ordering Provid er: ISATU TODD Report Released Date/Time: Dec 10, 2021 07:22 AM Reporting Lab: [place] [facility] [address] [facility] [address] Performing Lab: [place] [facility] [address] [facility] [address] CREATININE 0.78 0.5-1.5 eGFR(CKD-EPI 2020) >90.0 >60 Dec 09, 2021 06:46 AM [place] [facility] MAGNESIUM Sp ecimen Type: PLASMA Comment: Tests performed on Galleon (405) SN:[id number] Ordering Provid er: ISATU TODD Report Released Date/Time: Dec 08, 2021 10:23 AM Reporting Lab: [place] [facility] [address] [place] [facility] [place] [address] Performing Lab: [place] [facility] [address] [facility] [address] MAGNESIUM 1.6 1.6-2.6 Dec 09, 2021 [facility] P4 GLU,BUN,CREAT,LYTES,CA Speci men Type: PLASMA 06:46 AM [facility] Comment: Tests performed on Galleon (405) SN:[id number] Ordering Provid er: ISATU TODD Report Released Date/Time: Dec 08, 2021 05:00 PM Reporting Lab: [facility] [address] [facility] [address] Performing Lab: [facility] [address] [facility] [address] UREA NITROGEN 6 L 7-25 SODIUM 134 [...] Lab: [facility] [address] [facility] [address] Performing Lab: [facility] [address] [facility] [address] WBC 7.1 4.5-11.0 RBC 4.40 4.23-5.66 HGB [...] 0.00 0-0 Dec 08, 2021 06:[address] [place] [employer]treasure[employer] T [facility] MAGNESIUM Sp ecimen Type: PLASMA Comment: Testin g Performed on Galleon (405) SN:[id number] Ordering Provid er: ISATU TODD Report Released Date/Time: Dec 07, 2021 10:32 AM Reporting Lab: [facility] [address] [facility] [address] Performing Lab: [facility] [address] [facility] [address] MAGNESIUM 1.5 L 1.6-2.6 Dec 08, [address] [place] [employer] T P4 GLU,BUN,CREAT,LYTES,CA Speci men Type: PLASMA 06:39 AM [facility] Comment: Testin g Performed on Galleon (405) SN:[id number] Ordering Provid er: ISATU TODD Report Released Date/Time: Dec 07, 2021 10:32 AM Reporting Lab: [employer] T [facility] [address] [facility] [address] Performing Lab: [facility] [address] [facility] [address] UREA NITROGEN 6 L 7-25 SODIUM 136 135-145 POTASSIUM 3.3 L 3.5-5.0 CHLORIDE 104 100-110 CARBON DIOXIDE 22 20-30 ANION GAP 10 4-16 GLUCOSE 133 H 65-100 CREATININE 0.76 0.5-1.5 CALCIUM 8.4 L 8.5-10.5 eGFR(CKD-EPI 2020) >90.0 >60 Dec 08, 2021 06:39 AM [place] [employer] T [facility] CBC PROFILE Sp ecimen Type: BLOOD No comment enter ed. Ordering Provid er: ISATU TODD Report Released Date/Time: Dec 07, 2021 10:32 AM Reporting Lab: [facility] [address] [facility] [address] Performing Lab: [facility] [address] [facility] [facility] [...] LIVER PROFILE Specimen Typ e: PLASMA AM [facility] Comment: Tests performed on Galleon (405 SN:[id number] Ordering Provid er: PORFIRIO WALTERS Report Released Date/Time: Dec 06, 2021 06:57 PM Reporting Lab: [facility] [address] [facility] [address] Performing Lab: [facility] [address] [facility] [address] PROTEIN, TOTAL 5.7 L 6.0-8.5 ALBUMIN 2.4 L 3.2-5.0 BILIRUBIN, TOTAL 0.4 0.2-1.2 ALKALINE PHOSPHATASE 109 40-150 ALT(SGPT) 10 7-52 AST(SGOT) 15 5-34 FIB-4 SCORE 1.92 <2.67 Dec 07, 2021 [facility] P[facility] GLU,BUN,CREAT,LYTES,CA Speci men Type: PLASMA 06:42 AM [facility] Comment: Tests performed on Galleon (405) SN:[id number] Ordering Provid er: PORFIRIO WALTERS Report Released Date/Time: Dec 06, 2021 06:57 PM Reporting Lab: [place] [facility] [address] [facility] [address] Performing Lab: [place] [facility] [address] [facility] [address] UREA NITROGEN 9 7-25 SODIUM 135 135-145 POTASSIUM 3.5 3.5-5.0 CHLORIDE 103 100-110 CARBON DIOXIDE 22 20-30 ANION GAP 10 4-16 GLUCOSE 92 65-100 CREATININE 0.73 0.5-1.5 CALCIUM 8.0 L 8.5-10.5 eGFR(CKD-EPI 2020) >90.0 >60 Dec 07, 2021 06:42 AM [place] CBC PROFILE Specimen Type: BLOOD [facility] No comment enter ed. Ordering Provid er: PORFIRIO WALTERS Report Released Date/Time: Dec 06, 2021 06:57 PM Reporting Lab: [place] [facility] [address] [facility] [address] Performing Lab: [facility] [address] [facility] [address] WBC 5.7 4.5-11.0 RBC 4.15 L 4.23-5.66 [...] [facility] %) AUTOMATED Comment: Tests performed on Galleon (405) SN:[id number] Ordering Provid er: ISATU TODD Report Released Date/Time: Dec 07, 2021 10:28 AM Reporting Lab: [place] [facility] [address] [facility] [address] Performing Lab: [place] [facility] [address] [facility] [address] RETICULOCYTES (%) AUTOMATED 1.23 0. 6-2.0 RETICULOCYTES (ABS) AUTOMATED 0.052 0.030-0.090 Dec 06, 2021 09:45 [place] MRSA SURVL NARES Specimen Ty pe: NARES PM [facility] DNA No comment enter ed. Ordering Provid er: ALVARO VARGHESE Report Released Date/Time: Dec 07, 2021 02:20 AM Reporting Lab: [place] [facility] [address] [facility] [address] Performing Lab: [place] [facility] [address] [facility] [address] MRSA SURVL NARES DNA NEGATIVE NEGATIVE Dec 06, 2021 06:00 [place] URINALYSIS W/REFLEX TO Speci men Type: URINE PM [facility] CULTURE No comment enter ed. Ordering Provid er: JELANI SÁNCHEZ Report Released Date/Time: Dec 06, 2021 11:57 AM Reporting Lab: [place] [facility] [address] [facility] [address] Performing Lab: [place] [facility] [address] [facility] [address] URINE COLOR Arlin YELLOW SPECIFIC GRAVITY 1.029 [...] 21, RIVER VARIANT Comment: https://www.cdc.gov/coronavirus/2019-ncov/cases-updates/variant- surveillance/variant-info.html The [employer] Plus SARS CoV 2 [employer]ate Research Assay-GX is a next-generation sequencing (NGS) assa [address] [facility] SEQUENCING y that determine s the complete genome sequence of the SARS-CoV-2 virus. The assay contains variant-tolerant primers to broaden and improve the coverage for variant detection and increase the sensitivity 12:00 [facility] PNL(WH) of the panel to enable detection from lower viral titer samples. The assay is run on the [employer] Sequencer, which performs automated library preparation, sequencing, analysis, and reporting. PM The sequence an alysis includes determination of viral phylogenetic lineage by comparison to the reference strain Wuhan-Hu-1, GenBank: [id number]. Sequence determination may not be possible owing [...] and its performance characteristics determined by the [facility], which is certified under the Clinical Laboratory Improveme nt Amendments (C MARCO) as qualified to perform high complexity clinical laboratory testing. This test is validated for clinical use at [facility] and should not be regarded as investigational or for research. The FDA does not require this test to go through premarket FDA review, and therefore it has not been cleared or approved by the FDA. This report was reviewed and approved by the on-service pathologist. Ordering Provid er: JELANI SÁNCHEZ Report Released Date/Time: Dec 06, 2021 01:13 PM Reporting Lab: [place] [facility] [address] [place] [facility] [place] [address] Performing Lab: [facility] [address] [facility] [address] SARS-CoV-2 CLADE() 22C (OMICRON) SARS-CoV-2 LINEAGE() BA.2.12.1 Dec 06, 2021 12:00 [place] COVID-19 AG SCREEN Specimen Type: NASAL CAVITY PM [facility] PANEL BINAX(405) Comment: Testi ng Performed By: Mike Briscoe Ordering Provid er: JELANI SÁNCHEZ Report Released Date/Time: Dec 08, 2021 08:23 AM Reporting Lab: [place] [facility] [address] [facility] [address] Performing Lab: [facility] [address] [facility] [address] COVID-19 AG SCRN(wrj BINAX) POSITIVE HH NE G Dec 06, 2021 12:00 PM [facility] TROPONIN II Sp ecimen Type: PLASMA Comment: Tests performed on Pham Video Game Maker (405) SN:[id number] Ordering Provid er: JELANI SÁNCHEZ Report Released Date/Time: Dec 06, 2021 11:57 AM Reporting Lab: [address] [place] [facility] [address] [place] [facility] [place] [address] Performing Lab: [place] [facility] [address] [place] [facility] [place] [address] TROPONIN II 0.03 0.00-0.29 Dec 06, 2021 12:00 PM [facility] BNP(P) Sp ecimen Type: PLASMA Comment: Tests performed on Pham Video Game Maker (405) SN:[id number] Ordering Provid er: JELANI SÁNCHEZ Report Released Date/Time: Dec 06, 2021 11:57 AM Reporting Lab: [place] [facility] [address] [place] [facility] [place] [address] Performing Lab: [place] [facility] [address] [place] [facility] [place] [address] BNP(P) 224.8 H 10-100 Dec 06, 2021 12:00 PM [place] [facility] LIVER PROFILE Sp ecimen Type: PLASMA Comment: Testin g Performed on Pham Video Game Maker (405) SN:[id number] Ordering Provid er: JELANI SÁNCHEZ Report Released Date/Time: Dec 06, 2021 11:57 AM Reporting Lab: [facility] [address] [facility] [address] Performing Lab: [facility] [address] [facility] [address] PROTEIN, TOTAL 6.6 6.0-8.5 ALBUMIN 2.8 L 3.2-5.0 BILIRUBIN, TOTAL 0.6 0.2-1.2 ALKALINE PHOSPHATASE 134 40-150 ALT(SGPT) 13 7-52 AST(SGOT) 18 5-34 FIB-4 SCORE 1.94 <2.67 Dec 06, 2021 [facility] P4 GLU,BUN,CREAT,LYTES,CA Speci men Type: PLASMA 12:00 PM [facility] Comment: Testin g Performed on Pham Video Game Maker (405) SN:[id number] Ordering Provid er: JELANI SÁNCHEZ Report Released Date/Time: Dec 06, 2021 11:57 AM Reporting Lab: [facility] [address] [facility] [address] Performing Lab: [facility] [address] [facility] [address] UREA NITROGEN 13 7-25 SODIUM 138 135-145 POTASSIUM 3.8 3.5-5.0 CHLORIDE 103 100-110 CARBON DIOXIDE 23 20-30 ANION GAP 12 4-16 GLUCOSE 105 H 65-100 CREATININE 0.90 0.5-1.5 CALCIUM 8.7 8.5-10.5 eGFR(CKD-EPI 2020) >90.0 >60 Dec 06, 2021 [facility] COVID-19+FLU/RSV DIAGNOSTIC Spe cimen Type: NASOPHARYNX 12:00 PM [facility] PANEL(405) Comment: Tests performed on righTunexpert (405) Critical results called to and read back by: ALESHIA WILKINSON RN 12/06/21 @ 1312 Ordering Provid er: JELANI SÁNCHEZ Report Released Date/Time: Dec 06, 2021 11:57 AM Reporting Lab: [facility] [address] [facility] [address] Performing Lab: [place] [facility] [address] [address] FLU A(PCR) NEGATIVE NEGATIVE FLU B(PCR) NEGATIVE NEGATIVE RSV(PCR) NEGATIVE NEGATIVE COVID-19([id number]) DETECTED HH NO T DETECTED Dec 06, 2021 12:00 [facility] ecimen Type: BLOOD No comment enter ed. Ordering Provid er: JELANI SÁNCHEZ Report Released Date/Time: Dec 06, 2021 11:57 AM Reporting Lab: [facility] [address] [address] Performing Lab: [facility] [address] [address] WBC 7.2 4.5-11.0 RBC 4.86 4.23-5.66 HGB [...] WHITE 2021 08:47 /min mm[Hg] [facility] Dec 14, 0 2021 03:14 RIVER PM [...] WHITE 2021 10:13 /min mm[Hg] [facility] Social History: Smoking Status (Most current) and Tobacco Use (All prior to encounter date) This section includes the most current, and the historical, smoking and tobacco-related health factors from the [place] facility where the Encounter took place.Current Smoking Status This section includes the most current smoking, or tobacco-related health factor, from the [place] facility where the Encounter took place. Date/Time Current Smoking Status Comment Facility Dec 06, 2021 11:40 AM QUIT TOBACCO USE > 7 YEARS AGO [facility] Tobacco Use History This section includes a history of the smoking, or tobacco- related health factors, that were collected on or before the date of the Encounter. The data comes from the [place] facility where the Encounter took place. Date/Time Smoking Status/Tobacco Use Comment [facility] Apr 01, 2020 01:16 PM QUIT TOBACCO [...] [facility] May 01, 2016 03:11 PM QUIT TOBACCO USE IN PAST YEAR CAREY DOYLE [facility] May 01, 2016 11:19 AM QUIT TOBACCO USE IN PAST YEAR CAREY DOYLE [facility] Mar 16, 2016 12:50 PM V1-PT DECLINES [...] the Encounter. The data comes from all [place] treatment facilities. Date/Time Radiology Report Provider Source Dec 13, 2021 12:57 PM MRI ABDOMEN W/WO CONTRAST: MARYELLEN LONG LUCAS LARES N [id number] -1950 [facility] Exm Date: DEC 13, 2021@12:57 Req Phys: ISATU TODD Loc: OP Unknown/0 12-15-2021@13:20 Img Loc: MRI IMAGING (OOS) Service: [facility] (Case [id number] COMPLETE) MRI ABDOMEN W/WO CONTRAST (M RI Detailed) CPT:67535 Reason for Study: further characterization of a [...] new lyphadenopathy REQUESTING MD: Isatu Todd PAGER: [phone] PHONE: [phone] Weight: 232.2 lb [105.32 kg] (12/12/2021 05:00) [...] patient will need to arrange for a professional driver to take him/her home after the [...] 15, 2021 Date Verified: DEC 15, 2021 Loading And Unloading Supervisor E-Sig:/ES/MARYELLEN LONG Report: MRI ABDOMEN W/WO [...] POSSIBLE MALIGNANCY Primary Interpreting Staff: Staff AMELIA THMOAS (Loading And Unloading Supervisor) / Dec 10, 2021 09:[address] ABDOMEN & PELVIS: RADIOLOGY,OUTSIDE [facility] LUCAS MEEK N [id number] -1950 M SERVICE [facility] Exm Date: DEC 10, 2021@09:30 Req Phys: ISATU TODD Loc: 1S [facility]/12-10@10:57 Img Loc: CT SCAN (OOS) Service: [facility] (Case [id number] COMPLETE) CT ABD & PELVIS WITHOUT CONT RAST (CT Detailed) CPT:31011 Reason for Study: 71 yo male with [...] RADIOLOGY [phone] to speak to the appropriate safety relief valve technician. Report Status: Verified Date Reported: DEC 10, 2021 Date Verified: DEC 10, 2021 Loading And Unloading Supervisor E-Sig: Report: EXAM: CT abdomen and [...] ph nodes. READING PHYSICIAN: Ramone Munoz D.O. -[phone] 12/10/2021 10:55 EDT [facility] National Teleradiology Program [phone] (For Medical Practitioner Use Only ) [address] [facility], [facility] [address], [address] [place] [address] Attention Patients / Veterans: If you have ques tions or concerns about these test results, please contact your o rdering provider or primary care team. Primary Diagnostic Code: SIGNIFICANT ABNORMALIT Y, ATTN NEEDED Primary Interpreting Staff: RADIOLOGY,OUTSIDE SERVICE, Staff Physician / Dec 09, 2021 07:34 AM BASW (MODIFIED): JESSIE CHENEY [facility] LUCAS MEEK N [id number] -1950 [facility] Exm Date: DEC 09, 2021@07:34 Req Phys: ISATU TODD Loc: 1S MED/12-09@11:26 Img Loc: XRAY (OOS) Service: [facility] (Case [id number] COMPLETE) BASW (MODIFIED) (RAD Detaile d) CPT:87727 Contrast Media : Barium Reason for Study: dysphagia ?esophageal spasm Clinical History: Report Status: Verified Date Reported: DEC 09, 2021 Date Verified: DEC 09, 2021 Loading And Unloading Supervisor E-Sig:/ES/JESSIE CHENEY Report: DELISA (MODIFIED) , 12/09/2021 [...] REQUIRED Primary Interpreting Staff: JESSIE CHENEY, RADIOLOGIST (Loading And Unloading Supervisor) /TLC Dec 06, 2021 12:[address] CHEST (INCLUDES ADRENALS): JESSIE CHENEY [facility] LUCAS MEEK N [id number] -1950 [facility] Exm Date: DEC 06, 2021@12:59 Req Phys: JELANI SÁNCHEZ Loc: [facility] ED DAYS M 1RD (Req'g Loc) Img Loc: CT SCAN (OOS) Service: Unknown (Case [id number] COMPLETE) CT THORAX W/O CONT (CT Detai led) CPT:39752 Reason for Study: Opacification right chest Clinical History: No contrast allergy BUN: 13 (12/06/21 12:00) CREATI: 0.90 (12/06/21 12:00) eGFR 05/16/21 09:43 52 L Weight: 232.6 lb [105.51 kg] (12/06/2021 11:40) BODY MASS INDEX - NO HEIGHTS FOUND Pager number: [phone] STAT orders MUST be called t o RADIOLOGY [phone] to speak to the appropriate safety relief valve technician. Indications - Other: Opacification right chest, covid positive, lung cancer histo Report Status: Verified Date Reported: DEC 06, 2021 Date Verified: DEC 06, 2021 Loading And Unloading Supervisor E-Sig:/ES/JESSIE CHENEY Report: CT THORAX W/O [...] REQUIRED Primary Interpreting Staff: JESSIE CHENEY, RADIOLOGIST (Loading And Unloading Supervisor) Primary Interpreting Resident: PRINCE CHAMPION, Resident /BR Dec 06, 2021 11:58 AM CHEST SINGLE VIEW: JESSIE CHENEY LUCAS MEEK N [id number] -1950 [facility] Exm Date: DEC 06, 2021@11:58 Req Phys: JELANI SÁNCHEZ Pat Loc: [facility] ED DAYS M 1RD (Req'g Loc) Img Loc: XRAY (OOS) Service: Unknown (Case [id number] COMPLETE) CHEST SINGLE VIEW (RAD Detai led) CPT:75519 Proc Modifiers : PORTABLE EXAM Reason for Study: SOB, home covid test positive Clinical History: Report Status: Verified Date Reported: DEC 06, 2021 Date Verified: DEC 06, 2021 Loading And Unloading Supervisor E-Sig:/ES/JESSIE CHENEY Report: Exam type: Chest [...] REQUIRED Primary Interpreting Staff: JESSIE CHENEY, RADIOLOGIST (Loading And Unloading Supervisor) /TLC Pathology Reports: +/- 30 days [...] the Encounter. The data comes from all [place] treatment facilities. Date/Time Pathology Report Provider Source Jan 03, 2022 10:28 AM LR SURGICAL PATHOLOGY REPORT: STEFANY MILLER [facility] LOCAL TITLE: LR SURGICAL PATHOLOGY REPORT [facility] STANDARD TITLE: PATHOLOGY REPORT DATE OF NOTE: JAN 03, 2022@10:28:01 ENTRY DATE: JAN 03, 2022@10:28:01 AUTHOR: NIURKA MILLER EXP COSIGNER: URGENCY: STATUS: COMPLETED $APHDR Reporting Lab: [facility] [CLIA# [id number]] [address] [place] [address] - - - - - - [...] automatically d ocumented from SURGERY package case #[id number] Field (#32) PRINCIPAL PRE-OP DIAGNOSIS, (#.72) OTHER [...] automatically d ocumented from SURGERY package case #[id number] Field (#34) PRINCIPAL POST-OP DIAG, (#.74) OTHER [...] Label: Lucas Meek Paperwork: Lucas Meek Cassette: [id number];..;KALYANI;.;405;[id number] Specimen is labeled: ES bx Received in formalin are several pieces of pale boyd and brown tissue, 1.2 x 0.7 cm in aggregate. Submitted entirely in 1 cassette [id number];..;KALYANI;.;405;[id number] SAW 12/15/2021 Microscopic exam: *+* MODIFIED REPORT [...] in rendering the final pathologic diagnosis. [address] [address] CPT: 04796 /emely/ NIURKA Yeung MD Signed Jan 03, 2022@10:28 Performing Laboratory: Surgical Pathology Report Performed By: CAREY MONTOYA [facility] [CLIA# [id number]] [address] [place] [address] $FTR - - - - - [...] - - LUCAS MEEK STANDARD FORM 515 ID:[id number] SEX:M :1950 AGE: 71 LOC: SDM END PCP: Isatu Todd /emely/ NIURKA MILLER Staff Signed: 01/03/2022 10:28 Dec 21, 2021 11:46 AM LR SURGICAL PATHOLOGY [facility] LOC[facility] TITLE: LR SURGICAL PATHOLOGY REPORT [facility] STANDARD TITLE: PATHOLOGY REPORT DATE OF NOTE: DEC 21, 2021@11:46:59 ENTRY DATE: DEC 21, 2021@11:46:59 AUTHOR: NIURKA MILLER EXP COSIGNER: URGENCY: STATUS: COMPLETED $APHDR Reporting Lab: [facility] [CLIA# [id number]] [address] [place] [address] - - - - - - [...] automatically d ocumented from SURGERY package case #[id number] Field (#32) PRINCIPAL PRE-OP DIAGNOSIS, (#.72) OTHER [...] automatically d ocumented from SURGERY package case #[id number] Field (#34) PRINCIPAL POST-OP DIAG, (#.74) OTHER [...] Label: Lucas Meek Paperwork: Lucas Meek Cassette: [id number];..;KALYANI;.;405;[id number] Specimen is labeled: ES bx Received in formalin are several pieces of pale boyd and brown tissue, 1.2 x 0.7 cm in aggregate. Submitted entirely in 1 cassette [id number];..;KALYANI;.;405;[id number] SAW 12/15/2021 Microscopic exam: DIAGNOSIS: A. 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 Kendell long. TIARA Coombs was notified on 12/21/21. The attending pathologist who signature mansoor ears on this report has reviewed all diagnostic slides and has edited t he gross and/or microscopic portion of this report in rendering the final pathologic diagnosis. [address] [address] CPT: 63460 /emely/ NIURKA Yeung MD Signed Dec 21, 2021@11:46 Performing Laboratory: Surgical Pathology Report Performed By: [facility] [CLIA# [id number]] [address] [place] [address] $FTR - - - - - [...] - - LUCAS MEEK STANDARD FORM 515 ID:[id number] SEX:M :1950 AGE: 71 LOC: [facility] END PCP: Isatu Todd /emely/ NIURKA Yeung MD Signed: 12/21/2021 11:46 Dec 06, 2021 03:30 PM LR [facility] Reporting Lab: [facility] [CLIA# [id number]] [address] [place] [address] Accession [UID]: [id number] [[id number]] Receiv ed: Dec 06, 2021@16:14 Collection sample: BLOOD CUL T BOTTLE(NIRMAL/AERO)Collection date: Dec 06, 2021 15:30 Site/Specimen: BLOOD Provider: JELANI SÁNCHEZ Comment on specimen: LAC Test(s) ordered: BLOOD CULTURE ANAEROBI C....... completed: Dec 12, 2021 06:18 * BACTERIOLOGY FINAL REPORT => Dec 12, 2021 06:1 8 TECH CODE: [id number] Bacteriology Remark(s): NO GROWTH IN 5 DAYS =--=--=--=--=--=--=--=--=--=--=--=--=--= --=--=--=--=--=--=--=--=--=--=--=--=-- Performing Laboratory: Bacteriology Report Performed By: [facility] [CLIA# [id number]] [address] [place] [address] Dec 06, 2021 03:30 PM LR MICROBIOLOGY REPORT: [facility] Reporting Lab: [facility] [CLIA# [id number]] [address] [place] [address] Accession [UID]: [id number] [[id number]] Receiv ed: Dec 06, 2021@16:14 Collection sample: BLOOD CUL T BOTTLE(NIRMAL/AERO)Collection date: Dec 06, 2021 15:30 Site/Specimen: BLOOD Provider: JELANI SÁNCHEZ Comment on specimen: LAC Test(s) ordered: BLOOD CULTURE AEROBIC. ........ completed: Dec 12, 2021 06:17 * BACTERIOLOGY FINAL REPORT => Dec 12, 2021 06:1 7 TECH CODE: [id number] Bacteriology Remark(s): NO GROWTH IN 5 DAYS =--=--=--=--=--=--=--=--=--=--=--=--=--= --=--=--=--=--=--=--=--=--=--=--=--=-- Performing Laboratory: Bacteriology Report Performed By: [facility] [CLIA# [id number]] [address] [place] [address]
--- OUTSIDE RECORDS SUMMARY | 2022-01-19 08:59 | XMS_ITS ---
DAILY HOSPITALIZATION DATA [facility] Encounter Summary Created on:December 14, 2021 Patient:LUCAS MEEK Sex:Male :1950 Author Organization [facility] Address [address] [place] [address] Support Name Relationship Address Phone YUSRA MEEK Unavailable [address] [place] [address] YUSRA MEEK Unavailable [address] [place] [facility] [place] [address] CLAY MOSLEY Unavailable Unavailable SJ SANTACRUZ Unavailable [...] MEDICARE MEDICARE PART Jun 18, PART B [id number] MEEK DO PATIENT (WNR) (M) B 2016 13A 1 UGLAS MEDICARE MEDICARE PART Jun 18, PART A [id number] MEEK DO PATIENT (WNR) (M) A 2017 VH81 2 UGLAS MEDICARE MEDICARE PART Jun 18, PART B [id number] KALYANIDO PATIENT (WNR) (M) B 2017 VH81 2 U[place]AS MEDICARE MEDICARE PART Jun 18, PART A [id number] DO KALYANI PATIENT (WNR) (M) A 2016 13A 1 UGLAS UNITED MEDICARE MCR(Jun 18 [id number] Luz MEEK PATIENT HEALTHCARE ADVANTAGE NR) 2021 37 0 UGLAS MCR (WNR) Selected Encounter This section includes the information on record at [place] for the Encounter. Date/Time Encounter Type Encounter Description Reason Provider Source Dec 14, 2021 03:13 Inpatient Visit DAILY HOSPITALIZATION DATA PM IHE [...] AM AMBULATORY - NONE [place] [facility] Jan 06, 2022 02:00 PM [place] [facility] Jan 10, 2022 11:30 AM AMBULATORY - MEDICINE [facility] Jan 24, 2022 08:00 [place] [facility] Feb 21, 2022 10:00 AM [place]ORY [place] [facility] Mar 21, 2022 10:30 AM [...] The data comes from all [place] treatment [facility]. Test Date/Time Test Type Test Details Facility Name October 31, 2021 07:37 AM Consult Order [facility]ARE-EGD [facility] Cons Environmental Science Instructor's Choice November 15, 2021 10:[address] [facility] CARE-PODIATRY Cons Environmental Science Instructor's Choice Dec 06, 2021 12:52 PM [...] OUTPATIENT Cons [facility] Environmental Science Instructor's Choice Jan 15, 2022 10:[address] [facility] CARE-PALLIATIVE CARE Cons Environmental Science Instructor's Choice Lab Results: +/- 30 days [...] Reference Range Comment Dec 15, 2021 [place] P4 GLU,BUN,CREAT,LYTES,CA Speci men Type: PLASMA 06:43 AM [facility] Comment: Tests performed on ABC Live (405) SN:[id number] Ordering Provid er: ISATU TODD Report Released Date/Time: Dec 11, 2021 07:42 AM Reporting Lab: [facility] [address] [facility] [address] Performing Lab: [facility] [address] [facility] [address] UREA NITROGEN 9 7-25 SODIUM 137 135-145 [...] Lab: [facility] [address] [facility] [address] Performing Lab: [facility] [address] [facility] [address] WBC 5.7 4.5-11.0 RBC 4.22 L 4.23-5.66 [...] ABSOLUTE NRBC 0.00 0-0 Dec 14, 2021 [facility] CYTOGENETIC Specimen Type: ESOPHAGUS 02:59 PM [facility] Comment: ~For T est: CYTOGENETIC FISH([facility] ~FISH HER 2 NUE, FFPE See full report in Tongal Image display viewer/tab#LAB-Reference Ordering Provid er: NIURKA MILLER Report Released Date/Time: Dec 21, 2021 12:11 PM Reporting Lab: [facility] [address] [facility] [address] Performing Lab: [facility] CYTOGENETIC FISH([facility] comment Dec 14, 2021 [facility] P4 GLU,BUN,CREAT,LYTES,CA Speci men Type: PLASMA 06:27 AM [facility] Comment: Tests performed on ABC Live (405) SN:[id number] Ordering Provid er: ISATU TODD Report Released Date/Time: Dec 11, 2021 07:42 AM Reporting Lab: [facility] [address] [facility] [address] Performing Lab: [facility] [address] [facility] [address] UREA NITROGEN 10 7-25 SODIUM 137 135-145 [...] AM Reporting Lab: [facility] [address] [facility] [address] Performing Lab: [facility] [address] [facility] [address] WBC 6.0 4.5-11.0 RBC 4.29 4.23-5.66 HGB [...] ABSOLUTE NRBC 0.00 0-0 Dec 13, 2021 [facility] P4 GLU,BUN,CREAT,LYTES,CA Speci men Type: PLASMA 06:34 AM [facility] Comment: Tests performed on ABC Live (405) SN:[id number] Ordering Provid er: ISATU TODD Report Released Date/Time: Dec 11, 2021 07:42 AM Reporting Lab: [facility] [address] [facility] [address] Performing Lab: [facility] [address] [facility] [address] UREA NITROGEN 12 7-25 SODIUM 136 135-145 [...] AM Reporting Lab: [facility] [address] [facility] [address] Performing Lab: [facility] [address] [facility] [address] WBC 5.6 4.5-11.0 RBC 4.28 4.23-5.66 HGB [...] 0.00 0-0 Dec 12, 2021 06:21 AM [facility] CBC PROFILE Sp ecimen Type: BLOOD No comment enter ed. Ordering Provid er: ISATU TODD Report Released Date/Time: Dec 10, 2021 07:22 AM Reporting Lab: [facility] [address] [facility] [address] Performing Lab: [facility] [address] [facility] [address] WBC 5.5 4.5-11.0 RBC 4.37 4.23-5.66 HGB [...] 0-0 Dec 12, 2021 [facility] P4 GLU,BUN,CREAT,LYTES,CA Speci men Type: PLASMA 06:21 AM [facility] Comment: Tests performed on ABC Live (067) SN:[id number] Ordering Provid er: ISATU TODD Report Released Date/Time: Dec 11, 2021 07:42 AM Reporting Lab: [facility] [address] [facility] [address] Performing Lab: [facility] [address] [facility] [address] UREA NITROGEN 11 7-25 SODIUM 139 135-145 POTASSIUM 4.1 3.5-5.0 CHLORIDE 107 100-110 CARBON DIOXIDE 24 20-30 ANION GAP 8 4-16 GLUCOSE 110 H 65-100 CREATININE 0.70 0.5-1.5 CALCIUM 8.3 L 8.5-10.5 eGFR(CKD-EPI 2020) >90.0 >60 Dec 12, 2021 06:00 AM [place] [facility] MAGNESIUM Sp ecimen Type: PLASMA Comment: Testin g Performed on ABC Live (405) SN:[id number] Ordering Provid er: ISATU TODD Report Released Date/Time: Dec 12, 2021 08:24 AM Reporting Lab: [employer] [facility] [address] [facility] [address] Performing Lab: [employer] [email or web address] [address] [facility] [address] MAGNESIUM 1.8 1.6-2.6 Dec 12, 2021 06:00 AM [place] [facility] [email or web address] PHOSPHORUS Sp ecimen Type: PLASMA Comment: Testin g Performed on ABC Live (405) SN:[id number] Ordering Provid er: ISATU TODD Report Released Date/Time: Dec 12, 2021 08:24 AM Reporting Lab: [employer] [facility] [address] [facility] [address] Performing Lab: [employer] [facility] [address] [facility] [address] PHOSPHORUS 3.1 2.5-5.0 Dec 11, 2021 06:15 AM [facility] [place] [facility]T [email or web address] ELECTROLYTES Sp ecimen Type: PLASMA Comment: Tests performed on ABC Live (405) SN:[id number] Ordering Provid er: ISATU TODD Report Released Date/Time: Dec 10, 2021 07:22 AM Reporting Lab: [employer] [facility] [address] [facility] [address] Performing Lab: [employer] [facility] [address] [facility] [address] SODIUM 137 135-145 POTASSIUM 4.3 3.5-5.0 CHLORIDE 108 100-110 CARBON DIOXIDE 20 20-30 ANION GAP 9 4-16 Dec 11, 2021 06:15 AM [place] [facility] [facility] CBC PROFILE Sp ecimen Type: BLOOD Comment: Result s checked Ordering Provid er: ISATU TODD Report Released Date/Time: Dec 10, 2021 07:22 AM Reporting Lab: [employer] [facility] [facility] [address] [facility] [address] Performing Lab: [place] [place] [facility] [facility] [address] [facility] [address] WBC 5.8 4.5-11.0 RBC 4.37 4.23-5.66 HGB [...] 0.00 0-0 Dec 11, 2021 06:00 AM [facility] PHOSPHORUS Sp ecimen Type: PLASMA Comment: Tests performed on ABC Live (010) SN:[id number] Results checked Ordering Provid er: ISATU TODD Report Released Date/Time: Dec 11, 2021 07:44 AM Reporting Lab: [facility] [place] [facility] [address] [facility] [address] Performing Lab: [employer] OME[facility] [address] [facility] [address] PHOSPHORUS 3.0 2.5-5.0 Dec 10, 2021 08:05 AM [place] [facility] MAGNESIUM Sp ecimen Type: PLASMA Comment: [place] [id number] on Dec 10, 2021@08:31 Tests performed on ABC Live (405) SN:[id number] Ordering Provid er: ISATU TODD Report Released Date/Time: Dec 10, 2021 07:22 AM Reporting Lab: [place] [facility] [address] [facility] [place] [address] Performing Lab: [place] [facility] [address] [facility] [place] [address] MAGNESIUM 1.7 1.6-2.6 Dec 10, 2021 08:05 AM [place] [facility] PHOSPHORUS Sp ecimen Type: PLASMA Comment: [place] [id number] on Dec 10, 2021@08:31 Tests performed on ABC Live (405) SN:[id number] Ordering Provid er: ISATU TODD Report Released Date/Time: Dec 10, 2021 07:22 AM Reporting Lab: [place] [facility] [address] [facility] [place] [address] Performing Lab: [place] [facility] [address] [facility] [place] [address] PHOSPHORUS 1.8 L 2.5-5.0 Dec 10, 2021 08:05 AM [place] [facility] GLUCOSE Sp ecimen Type: PLASMA Comment: [place] [id number] on Dec 10, 2021@08:31 Tests performed on ABC Live (405) SN:[id number] Ordering Provid er: ISATU TODD Report Released Date/Time: Dec 10, 2021 07:22 AM Reporting Lab: [place] [facility] [address] [facility] [place] [address] Performing Lab: [place] [facility] [address] [facility] [place] [address] GLUCOSE 144 H 65-100 Dec 10, 2021 08:05 AM [place] UREA NITROGEN Specimen Type: PLASMA [facility] Comment: [place] [id number] on Dec 10, 2021@08:31 Tests performed on ABC Live (405) SN:[id number] Ordering Provid er: ISATU TODD Report Released Date/Time: Dec 10, 2021 07:22 AM Reporting Lab: [place] [facility] [address] [facility] [address] Performing Lab: [place] [facility] [address] [facility] [address] UREA NITROGEN 8 7-25 Dec 10, 2021 08:05 AM [place] [facility] ELECTROLYTES Sp ecimen Type: PLASMA Comment: [place] [id number] on Dec 10, 2021@08:31 Tests performed on Pham Codenvy (405) SN:[id number] Ordering Provid er: ISATU TODD Report Released Date/Time: Dec 10, 2021 07:22 AM Reporting Lab: [place] [facility] [address] [facility] [address] Performing Lab: [place] [facility] [address] [facility] [address] SODIUM 139 135-145 POTASSIUM 3.7 3.5-5.0 CHLORIDE 107 100-110 CARBON DIOXIDE 24 20-30 ANION GAP 8 4-16 Dec 10, 2021 08:05 AM [place] [facility] CALCIUM Sp ecimen Type: PLASMA Comment: [place] [id number] on Dec 10, 2021@08:31 Tests performed on Pham Codenvy (405) SN:[id number] Ordering Provid er: ISATU TODD Report Released Date/Time: Dec 10, 2021 07:22 AM Reporting Lab: [place] [facility] [address] [facility] [address] Performing Lab: [place] [facility] [address] [facility] [address] CALCIUM 8.3 L 8.5-10.5 Dec 10, 2021 08:05 [place] CREATININE WITH eGFR Specime n Type: PLASMA AM [facility] PANEL Comment: [place] [id number] on Dec 10, 2021@08:31 Tests performed on ABC Live (405) SN:[id number] Ordering Provid er: ISATU TODD Report Released Date/Time: Dec 10, 2021 07:22 AM Reporting Lab: [place] [facility] [address] [facility] [address] Performing Lab: [place] [facility] [address] [facility] [address] CREATININE 0.78 0.5-1.5 eGFR(CKD-EPI 2020) >90.0 >60 Dec 10, 2021 08:05 AM [facility] CBC PROFILE Sp ecimen Type: BLOOD No comment enter ed. Ordering Provid er: ISATU TODD Report Released Date/Time: Dec 10, 2021 07:22 AM Reporting Lab: [facility] [facility] [facility] [address] [facility] [address] Performing Lab: [employer] [facility] [facility] [address] [facility] [address] WBC 7.0 4.5-11.0 RBC 4.54 4.23-5.66 HGB [...] 0.00 0-0 Dec 09, 2021 06:46 AM [facility] MAGNESIUM Sp ecimen Type: PLASMA Comment: Tests performed on ABC Live (813) SN:[id number] Ordering Provid er: ISATU TODD Report Released Date/Time: Dec 08, 2021 10:23 AM Reporting Lab: [facility] [address] [facility] [address] Performing Lab: [facility] [address] [facility] [address] MAGNESIUM 1.6 1.6-2.6 Dec 09, 2021 [facility] P4 GLU,BUN,CREAT,LYTES,CA Speci men Type: PLASMA 06:46 AM [facility] Comment: Tests performed on ABC Live (405) SN:[id number] Ordering Provid er: ISATU TODD Report Released Date/Time: Dec 08, 2021 05:00 PM Reporting Lab: [facility] [address] [facility] [address] Performing Lab: [facility] [address] [facility] [address] UREA NITROGEN 6 L 7-25 SODIUM 134 [...] PM Reporting Lab: [facility] [address] [facility] [address] Performing Lab: [facility] [address] [facility] [address] WBC 7.1 4.5-11.0 RBC 4.40 4.23-5.66 HGB [...] 0-0 Dec 08, 2021 06:39 AM [facility] MAGNESIUM Sp ecimen Type: PLASMA Comment: Testin g Performed on ABC Live (405) SN:[id number] Ordering Provid er: ISATU TODD Report Released Date/Time: Dec 07, 2021 10:32 AM Reporting Lab: [facility] [address] [facility] [address] Performing Lab: [facility] [address] [facility] [address] MAGNESIUM 1.5 L 1.6-2.6 Dec 08, 2021 06:39 AM [facility] CBC PROFILE Sp ecimen Type: BLOOD No comment enter ed. Ordering Provid er: ISATU TODD Report Released Date/Time: Dec 07, 2021 10:32 AM Reporting Lab: [facility] [address] [facility] [address] Performing Lab: [facility] [address] [facility] [address] WBC 8.4 4.5-11.0 RBC 4.75 4.23-5.66 HGB [...] ABSOLUTE NRBC 0.00 0-0 Dec 08, 2021 [facility] P4 GLU,BUN,CREAT,LYTES,CA Speci men Type: PLASMA 06:39 AM [facility] Comment: Testin g Performed on Pham Codenvy (405) SN:[id number] Ordering Provid er: ISATU TODD Report Released Date/Time: Dec 07, 2021 10:32 AM Reporting Lab: [facility] [address] [facility] [address] Performing Lab: [facility] [address] [facility] [address] UREA NITROGEN 6 L 7-25 SODIUM 136 135-145 POTASSIUM 3.3 L 3.5-5.0 CHLORIDE 104 100-110 CARBON DIOXIDE 22 20-30 ANION GAP 10 4-16 GLUCOSE 133 H 65-100 CREATININE 0.76 0.5-1.5 CALCIUM 8.4 L 8.5-10.5 eGFR(CKD-EPI 2020) >90.0 >60 Dec 07, 2021 [facility] P4 GLU,BUN,CREAT,LYTES,CA Speci men Type: PLASMA 06:42 AM [facility] Comment: Tests performed on Pham Codenvy (405) SN:[id number] Ordering Provid er: PORFIRIO WALTERS Report Released Date/Time: Dec 06, 2021 06:57 PM Reporting Lab: [employer] [facility] [facility] [address] [facility] [address] Performing Lab: [facility] [address] [facility] [address] UREA NITROGEN 9 7-25 SODIUM 135 135-145 POTASSIUM 3.5 3.5-5.0 CHLORIDE 103 100-110 CARBON DIOXIDE 22 20-30 ANION GAP 10 4-16 GLUCOSE 92 65-100 CREATININE 0.73 0.5-1.5 CALCIUM 8.0 L 8.5-10.5 eGFR(CKD-EPI 2020) >90.0 >60 Dec 07, 2021 06:42 [place] LIVER PROFILE Specimen Typ e: PLASMA AM [facility] Comment: Tests performed on [employer] Ships Equipment Engineer (405) SN:[id number] Ordering Provid er: PORFIRIO WALTERS Report Released Date/Time: Dec 06, 2021 06:57 PM Reporting Lab: [facility] [address] [facility] [address] Performing Lab: [facility] [address] [facility] [address] PROTEIN, TOTAL 5.7 L 6.0-8.5 ALBUMIN 2.4 L 3.2-5.0 BILIRUBIN, TOTAL 0.4 0.2-1.2 ALKALINE PHOSPHATASE 109 40-150 ALT(SGPT) 10 7-52 AST(SGOT) 15 5-34 FIB-4 SCORE 1.92 <2.67 Dec 07, 2021 06:42 AM [facility] CBC PROFILE Specimen Type: BLOOD [facility] No comment enter ed. Ordering Provid er: PORFIRIO WALTERS Report Released Date/Time: Dec 06, 2021 06:57 PM Reporting Lab: [facility] [address] [facility] [address] Performing Lab: [facility] [address] [facility] [address] WBC 5.7 4.5-11.0 RBC 4.15 L 4.23-5.66 [...] [facility]AM[facility] %) AUTOMATED Comment: Tests performed on ABC Live (405) SN:[id number] Ordering Provid er: ISATU TODD Report Released Date/Time: Dec 07, 2021 10:28 AM Reporting Lab: [place] [facility] [address] [facility] [address] Performing Lab: [place] [facility] [address] [facility] [address] RETICULOCYTES (%) AUTOMATED 1.23 0. 6-2.0 RETICULOCYTES (ABS) AUTOMATED 0.052 0.030-0.090 Dec 06, 2021 09:45 [place] MRSA SURVL NARES Specimen Ty pe: NARES PM [facility] DNA No comment enter ed. Ordering Provid er: ALVARO VARGHESE Report Released Date/Time: Dec 07, 2021 02:20 AM Reporting Lab: [place] [facility] [address] [facility] [address] Performing Lab: [place] [facility] [address] [facility] [address] MRSA SURVL NARES DNA NEGATIVE NEGATIVE Dec 06, 2021 06:00 [place] URINALYSIS W/REFLEX TO Speci men Type: URINE PM [facility] CULTURE No comment enter ed. Ordering Provid er: JELANI SÁNCHEZ Report Released Date/Time: Dec 06, 2021 11:57 AM Reporting Lab: [place] [facility] [address] [facility] [address] Performing Lab: [place] [facility] [address] [facility] [address] URINE COLOR Arlin YELLOW SPECIFIC GRAVITY 1.029 [...] 21, [place] VARIANT Comment: https://www.cdc.gov/coronavirus/2019-ncov/cases-updates/variant- surveillance/variant-info.html The ieCrowd SARS CoV 2 [employer]elligent [employer] Research Assay-GX is a next-generation sequencing (NGS) assa 2021 [facility] SEQUENCING y that determine s the complete genome sequence of the SARS-CoV-2 virus. The assay contains variant-tolerant primers to broaden and improve the coverage for variant detection and increase the sensitivity 12:00 [facility] PNL(WH) of the panel to enable detection from lower viral titer samples. The assay is run on the Scheduling Employee Scheduling Software Sequencer, which performs automated library preparation, sequencing, analysis, and reporting. PM The sequence an alysis includes determination of viral phylogenetic lineage by comparison to the reference strain Wuhan-Hu-1, GenBank: [id number]. Sequence determination may not be possible owing [...] Dec 06, 2021 01:13 PM Reporting Lab: [facility] [address] [facility] [address] Performing Lab: [facility] [address] [facility] [address] SARS-CoV-2 CLADE() 22C (OMICRON) SARS-CoV-2 LINEAGE() BA.2.12.1 Dec 06, 2021 12:00 [facility] COVID-19 AG SCREEN Specimen Type: NASAL CAVITY PM [facility] PANEL BINAX(405) Comment: Testi ng Performed By: Mike Briscoe Ordering Provid er: JELANI SÁNCHEZ Report Released Date/Time: Dec 08, 2021 08:23 AM Reporting Lab: [facility] [address] [facility] [address] Performing Lab: [facility] [address] [facility] [address] COVID-19 AG SCRN(wrj BINAX) POSITIVE HH NE G Dec 06, 2021 12:00 PM [facility] LIVER PROFILE Sp ecimen Type: PLASMA Comment: Testin g Performed on Pham Ships Equipment Engineer (405) SN:[id number] Ordering Provid er: JELANI SÁNCHEZ Report Released Date/Time: Dec 06, 2021 11:57 AM Reporting Lab: [facility] [address] [facility] [address] Performing Lab: [facility] [address] [facility] [address] PROTEIN, TOTAL 6.6 6.0-8.5 ALBUMIN 2.8 L 3.2-5.0 BILIRUBIN, TOTAL 0.6 0.2-1.2 ALKALINE PHOSPHATASE 134 40-150 ALT(SGPT) 13 7-52 AST(SGOT) 18 5-34 FIB-4 SCORE 1.94 <2.67 Dec 06, 2021 12:00 [facility] TR[facility] Sp ecimen Type: PLASMA Comment: Tests performed on Pham Ships Equipment Engineer (405) SN:[id number] Ordering Provid er: JELANI SÁNCHEZ Report Released Date/Time: Dec 06, 2021 11:57 AM Reporting Lab: [facility] [address] [facility] [address] Performing Lab: [facility] [address] [facility] [address] TROPONIN II 0.03 0.00-0.29 Dec 06, 2021 [facility] COVID-19+FLU/RSV DIAGNOSTIC Spe cimen Type: NASOPHARYNX 12:00 PM [facility] PANEL(405) Comment: Tests performed on [facility] Genexpert (405) Critical results called to and read back by: ALESHIA WILKINSON RN 12/06/21 @ 1312 Ordering Provid er: JELANI SÁNCHEZ Report Released Date/Time: Dec 06, 2021 11:57 AM Reporting Lab: [facility] [address] [facility] [address] Performing Lab: [facility] [address] [facility] [address] FLU A(PCR) NEGATIVE NEGATIVE FLU B(PCR) NEGATIVE NEGATIVE RSV(PCR) NEGATIVE NEGATIVE COVID-19([id number]) DETECTED HH NO T DETECTED Dec 06, 2021 [facility] P4 GLU,BUN,CREAT,LYTES,CA Speci men Type: PLASMA 12:00 PM [facility] Comment: Testin g Performed on Pahm Ships Equipment Engineer (405) SN:[id number] Ordering Provid er: JELANI SÁNCHEZ Report Released Date/Time: Dec 06, 2021 11:57 AM Reporting Lab: [facility] [address] [facility] [address] Performing Lab: [facility] [address] [facility] [address] UREA NITROGEN 13 7-25 SODIUM 138 135-145 POTASSIUM 3.8 3.5-5.0 CHLORIDE 103 100-110 CARBON DIOXIDE 23 20-30 ANION GAP 12 4-16 GLUCOSE 105 H 65-100 CREATININE 0.90 0.5-1.5 CALCIUM 8.7 8.5-10.5 eGFR(CKD-EPI 2020) >90.0 >60 Dec 06, 2021 12:00 PM [facility] BNP(P) Sp ecimen Type: PLASMA Comment: Tests performed on [employer] Equipment Engineer (405) [id number] Ordering Provid er: JELANI SÁNCHEZ Report Released Date/Time: Dec 06, 2021 11:57 AM Reporting Lab: [facility] [address] [facility] [address] Performing Lab: [facility] [address] [facility] [address] BNP(P) 224.8 H 10-100 Dec 06, 2021 12:00 PM [facility] CBC PROFILE Sp ecimen Type: BLOOD No comment enter ed. Ordering Provid er: JELANI SÁNCHEZ Report Released Date/Time: Dec 06, 2021 11:57 AM Reporting Lab: [facility] [address] [facility] [address] Performing Lab: [facility] [address] [facility] [address] WBC 7.2 4.5-11.0 RBC 4.86 4.23-5.66 HGB [...] WHITE 2021 08:47 /min mm[Hg] RIVER PM [facility] Dec 14, 0 2021 03:14 RIVER PM T [facility] Dec 14, 97.1 F 91 139/68 20 /min 99 % WHITE 2021 02:23 /min mm[Hg] RIVER PM T [facility] Dec 14, 0 WHITE 2021 10:15 RIVER AM T [facility] Dec 14, 97.5 F 94 138/68 18 /min 97 % 0 WHITE 2021 10:13 /min mm[Hg] RIVER AM [facility] Social History: [...] YEAR [facility] May 01, 2016 03:11 PM QUIT TOBACCO USE IN PAST YEAR [facility] May 01, 2016 11:19 AM QUIT TOBACCO [...] W/WO CONTRAST: MARYELLEN LONG LUCAS LARES N [id number] [facility] Exm Date: DEC 13, 2021@12:57 Req Phys: ISATU TODD Loc: OP Unknown/0 12-15-2021@13:20 Img Loc: MRI IMAGING (OOS) Service: [facility] MEDICINE (Case [id number] COMPLETE) MRI ABDOMEN W/WO CONTRAST (M RI Detailed) CPT:72664 Reason for Study: further characterization of a [...] new lyphadenopathy REQUESTING MD: Isatu Todd PAGER: [phone] PHONE: [phone] Weight: 232.2 lb [105.32 kg] (12/12/2021 05:00) [...] 15, 2021 Date Verified: DEC 15, 2021 Irrigation Manager E-Sig:/ES/MARYELLEN LONG Report: MRI ABDOMEN W/WO [...] MALIGNANCY Primary Interpreting Staff: Staff AMELIA THOMAS (Irrigation Manager) / Dec 10, 2021 09:[address] ABDOMEN & PELVIS: RADIOLOGY,OUTSIDE [facility] [place] LUCAS MEEK N [id number] -1950 M SERVICE [facility] Exm Date: DEC 10, 2021@09:30 Req Phys: ISATU TODD Loc: 1S [facility]/12-10@10:57 Img Loc: CT SCAN (OOS) Service: [facility] (Case [id number] COMPLETE) CT ABD & PELVIS WITHOUT CONT RAST (CT Detailed) CPT:24019 Reason for Study: 71 yo male with [...] RADIOLOGY [phone] to speak to the appropriate mechanical assembly technician. Report Status: Verified Date Reported: DEC 10, 2021 Date Verified: DEC 10, 2021 Irrigation Manager E-Sig: Report: EXAM: CT abdomen and [...] ph nodes. READING PHYSICIAN: Ramone Munoz D.O. -[phone] 12/10/2021 10:55 EDT [facility] National Teleradiology Program [phone] (For Medical Practitioner Use Only ) [address] [facility], [facility] [address], [address] [place] [address] Attention Patients / Veterans: If you have ques tions or concerns about these test results, please contact your o rdering provider or primary care team. Primary Diagnostic Code: SIGNIFICANT ABNORMALIT Y, ATTN NEEDED Primary Interpreting Staff: RADIOLOGY,OUTSIDE SERVICE, Staff Physician / Dec 09, 2021 07:34 AM BASW (MODIFIED): JESSIE CHENEY [facility] LUCAS MEEK N [id number] -1950 [facility] Exm Date: DEC 09, 2021@07:34 Req Phys: ISATU TODD Loc: 1S MED/12-09@11:26 Img Loc: XRAY (OOS) Service: [facility] MEDICINE (Case [id number] COMPLETE) BASW (MODIFIED) (RAD Detaile d) CPT:37280 Contrast Media : Barium Reason for Study: dysphagia ?esophageal spasm Clinical History: Report Status: Verified Date Reported: DEC 09, 2021 Date Verified: DEC 09, 2021 Irrigation Manager E-Sig:/ES/JESSIE CHENEY Report: DELISA (MODIFIED) , 12/09/2021 [...] REQUIRED Primary Interpreting Staff: JESSIE CHENEY, RADIOLOGIST (Irrigation Manager) /TLC Dec 06, 2021 12:[address] CHEST (INCLUDES ADRENALS): JESSIE CHENEY [facility] LUCAS MEEK N [id number] -1950 [facility] Exm Date: DEC 06, 2021@12:59 Req Phys: JELANI SÁNCHEZ Loc: [facility] ED DAYS M 1RD (Req'g Loc) Img Loc: CT SCAN (OOS) Service: Unknown (Case [id number] COMPLETE) CT THORAX W/O CONT (CT Detai led) CPT:08014 Reason for Study: Opacification right chest Clinical History: No contrast allergy BUN: 13 (12/06/21 12:00) CREATI: 0.90 (12/06/21 12:00) eGFR 05/16/21 09:43 52 L Weight: 232.6 lb [105.51 kg] (12/06/2021 11:40) BODY MASS INDEX - NO HEIGHTS FOUND Pager number: [phone] STAT orders MUST be called t o RADIOLOGY [phone] to speak to the appropriate mechanical assembly technician. Indications - Other: Opacification right chest, covid positive, lung cancer histo Report Status: Verified Date Reported: DEC 06, 2021 Date Verified: DEC 06, 2021 Irrigation Manager E-Sig:/ES/JESSIE CHENEY Report: CT THORAX W/O [...] REQUIRED Primary Interpreting Staff: JESSIE CHENEY, RADIOLOGIST (Irrigation Manager) Primary Interpreting Resident: PRINCE HCAMPION, Resident /BR Dec 06, 2021 11:58 AM CHEST SINGLE VIEW: JESSIE CHENEY LUCAS MEEK N [id number] -1950 M [facility] Exm Date: DEC 06, 2021@11:58 Req Phys: JELANI SÁNCHEZ Pat Loc: [facility] ED DAYS M 1RD (Req'g Loc) Img Loc: XRAY (OOS) Service: Unknown (Case [id number] COMPLETE) CHEST SINGLE VIEW (RAD Detai led) CPT:69728 Proc Modifiers : PORTABLE EXAM Reason for Study: SOB, home covid test positive Clinical History: Report Status: Verified Date Reported: DEC 06, 2021 Date Verified: DEC 06, 2021 Irrigation Manager E-Sig:/ES/JESSIE CHENEY Report: Exam type: Chest [...] REQUIRED Primary Interpreting Staff: JESSIE CHENEY, RADIOLOGIST (Irrigation Manager) /TLC Pathology Reports: +/- 30 days [...] AM LR SURGICAL PATHOLOGY REPORT: STEFANY MILLER [facility] LOCAL TITLE: LR SURGICAL PATHOLOGY REPORT [facility] STANDARD TITLE: PATHOLOGY REPORT DATE OF NOTE: JAN 03, 2022@10:28:01 ENTRY DATE: JAN 03, 2022@10:28:01 AUTHOR: NIURKA MILLER EXP COSIGNER: URGENCY: STATUS: COMPLETED $APHDR Reporting Lab: [facility] [CLIA# [id number]] [address] [place] [address] - - - - - - [...] automatically d ocumented from SURGERY package case #[id number] Field (#32) PRINCIPAL PRE-OP DIAGNOSIS, (#.72) OTHER [...] automatically d ocumented from SURGERY package case #[id number] Field (#34) PRINCIPAL POST-OP DIAG, (#.74) OTHER [...] Label: Lucas Meek Paperwork: Lucas Meek Cassette: [id number];..;KALYANI;.;405;[phone] Specimen is labeled: ES bx Received in formalin are several pieces of pale boyd and brown tissue, 1.2 x 0.7 cm in aggregate. Submitted entirely in 1 cassette [id number];..;KALYANI;.;405;[phone] SAW 12/15/2021 Microscopic exam: *+* MODIFIED REPORT *+* (Last modified: JAN 03, 2022@09:30:20 typed by NIURKA WADDELL) DIAGNOSIS: A. 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 Kendell long. TIARA Coombs was notified on 12/21/21. Modified on 01/03/22 to include report from [facility] stating that tumor is NEGATIVE for her2/ matheus amplification. The attending pathologist who signature mansoor ears on this report has reviewed all diagnostic slides and has edited t he gross and/or microscopic portion of this report in rendering the final pathologic diagnosis. [address] [address] CPT: 50382 /emely/ NIURKA Yeung MD Signed Jan 03, 2022@10:28 Performing Laboratory: Surgical Pathology Report Performed By: CAREY MONTOYA [facility] [CLIA# [id number]] [address] [place] [address] $FTR - - - - - [...] - - LUCAS MEEK STANDARD FORM 515 ID:[id number] SEX:M :1950 AGE: 71 LOC: SDM END PCP: Isatu Todd /emely/ NIURKA MILLER Staff Signed: 01/03/2022 10:28 Dec 21, 2021 11:46 AM LR SURGICAL PATHOLOGY [facility] LOC[facility] TITLE: LR SURGICAL PATHOLOGY REPORT [facility] STANDARD TITLE: PATHOLOGY REPORT DATE OF NOTE: DEC 21, 2021@11:46:59 ENTRY DATE: DEC 21, 2021@11:46:59 AUTHOR: NIURKA MILLER EXP COSIGNER: URGENCY: STATUS: COMPLETED $APHDR Reporting Lab: [facility] [CLIA# [id number]] [address] [place] [address] - - - - - - [...] automatically d ocumented from SURGERY package case #[id number] Field (#32) PRINCIPAL PRE-OP DIAGNOSIS, (#.72) OTHER [...] automatically d ocumented from SURGERY package case #[id number] Field (#34) PRINCIPAL POST-OP DIAG, (#.74) OTHER [...] Label: Lucas Meek Paperwork: Lucas Meek Cassette: [id number];..;KALYANI;.;405;[id number] Specimen is labeled: ES bx Received in formalin are several pieces of pale boyd and brown tissue, 1.2 x 0.7 cm in aggregate. Submitted entirely in 1 cassette [id number];..;KALYANI;.;405;[id number] SAW 12/15/2021 Microscopic exam: DIAGNOSIS: A. 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 Kendell long. TIARA Coombs was notified on 12/21/21. The attending pathologist who signature mansoor ears on this report has reviewed all diagnostic slides and has edited t he gross and/or microscopic portion of this report in rendering the final pathologic diagnosis. [address] [address] CPT: 55790 /emely/ NIURKA Yeung MD Signed Dec 21, 2021@11:46 Performing Laboratory: Surgical Pathology Report Performed By: [facility] [CLIA# [id number]] [address] [place] [address] $FTR - - - - - [...] - - LUCAS MEEK STANDARD FORM 515 ID:[id number] SEX:M :1950 AGE: 71 LOC: [facility] END PCP: Isatu Todd /emely/ NIURKA Yeung MD Signed: 12/21/2021 11:46 Dec 06, 2021 03:30 PM LR MICROBIOLOGY [facility] Reporting Lab: [facility] [CLIA# [id number]] [address] [place] [address] Accession [UID]: [id number] [[id number]] Receiv ed: Dec 06, 2021@16:14 Collection sample: BLOOD CUL T BOTTLE(NIRMAL/AERO)Collection date: Dec 06, 2021 15:30 Site/Specimen: BLOOD Provider: JELANI SÁNCHEZ Comment on specimen: LAC Test(s) ordered: BLOOD CULTURE ANAEROBI C....... completed: Dec 12, 2021 06:18 * BACTERIOLOGY FINAL REPORT => Dec 12, 2021 06:1 8 TECH CODE: [id number] Bacteriology Remark(s): NO GROWTH IN 5 DAYS =--=--=--=--=--=--=--=--=--=--=--=--=--= --=--=--=--=--=--=--=--=--=--=--=--=-- Performing Laboratory: Bacteriology Report Performed By: [facility] [CLIA# [id number]] [address] [place] [address] Dec 06, 2021 03:30 PM LR MICROBIOLOGY REPORT: [facility] Reporting Lab: [facility] [CLIA# [id number]] [address] [place] [address] Accession [UID]: [id number] [[id number]] Receiv ed: Dec 06, 2021@16:14 Collection sample: BLOOD CUL T BOTTLE(NIRMAL/AERO)Collection date: Dec 06, 2021 15:30 Site/Specimen: BLOOD Provider: JELANI SÁNCHEZ Comment on specimen: LAC Test(s) ordered: BLOOD CULTURE AEROBIC. ........ completed: Dec 12, 2021 06:17 * BACTERIOLOGY FINAL REPORT => Dec 12, 2021 06:1 7 TECH CODE: [id number] Bacteriology Remark(s): NO GROWTH IN 5 DAYS =--=--=--=--=--=--=--=--=--=--=--=--=--= --=--=--=--=--=--=--=--=--=--=--=--=-- Performing Laboratory: Bacteriology Report Performed By: [facility] [CLIA# [id number]] [address] [place] [address]
--- OUTSIDE RECORDS SUMMARY | 2022-01-19 09:00 | XMS_ITS ---
DAILY HOSPITALIZATION DATA [facility] Encounter Summary Created on:December 14, 2021 Patient:LUCAS MEEK Sex:Male :1950 Author Organization [facility] Address [address] [place] [id number] Support Name Relationship Address Phone YUSRA MEEK Unavailable [address] [place] [address] YUSRA MEEK Unavailable [address] [place] [facility] [place] [address] CLAY MOSLEY Unavailable Unavailable SJ SANTACRUZ Unavailable [...] MEDICARE MEDICARE PART Jun 18, PART A [id number] DO KALYANI PATIENT (WNR) (M) A 2016 13A 1 UGLAS MEDICARE MEDICARE PART Jun 18, PART A [id number] DO KALYANI PATIENT (WNR) (M) A 2017 VH81 2 LAS MEDICARE MEDICARE PART Jun 18, PART B [id number] DO KALYANI PATIENT (WNR) (M) B 2016 13A 1 UGLAS MEDICARE MEDICARE PART Jun 18, PART B [id number] DO KALYANI PATIENT (WNR) (M) B 2017 VH81 2 UGLAS UNITED MEDICARE MCR(Jun 18 [id number] Luz MEEK PATIENT HEALTHCARE ADVANTAGE NR) 2021 37 0 [facility] (WNR) Selected Encounter This section includes the information on record at [place] for the Encounter. Date/Time Encounter Type Encounter Description Reason Provider Source Dec 14, 2021 09:33 Inpatient Visit DAILY HOSPITALIZATION DATA PM IHE Encounter Template Text not used by [place] [...] NONE [place] [facility] Jan 06, 2022 02:00 PM [place] [facility] Jan 10, 2022 11:30 AM [facility] Jan 24, 2022 08:00 [place] [facility] Feb 21, 2022 10:00 AM [place] [facility] Mar 21, 2022 10:30 AM AMBULATORY [...] The data comes from all [place] treatment [facility]. Test Date/Time Test Type Test Details Facility Name October 31, 2021 07:37 AM Consult Order COMMUNITY CARE-EGD [facility] Cons Singing Waiter Or Waitress's Choice November 15, 2021 10:37 AM Consult Order [facility] CARE-PODIATRY Cons Singing Waiter Or Waitress's Choice Dec 06, 2021 12:52 PM [place]acy [place] In[place] Order [facility] Dec 06, 2021 03:24 PM Pharmacy [place] [facility] Dec 06, 2021 03:40 PM [place]acy [place] [facility] Dec 15, 2021 08:41 AM Consult Order SPEECH PATHOLOGY [place] OUT[place] Cons [facility] Singing Waiter Or Waitress's Choice Jan 15, 2022 10:08 PM Consult Order [facility] CARE-PALLIATIVE CARE Cons Singing Waiter Or Waitress's Choice Lab Results: +/- 30 days of [...] Reference Range Comment Dec 15, 2021 [place] P4 GLU,BUN,CREAT,LYTES,CA Speci men Type: PLASMA 06:43 AM [facility] Comment: Tests performed on Volt (405) SN:[id number] Ordering Provid er: ISATU TODD Report Released Date/Time: Dec 11, 2021 07:42 AM Reporting Lab: [facility] T [facility] [address] [facility] [address] Performing Lab: [facility] [address] [facility] [address] UREA NITROGEN 9 7-25 SODIUM 137 135-145 POTASSIUM 3.8 3.5-5.0 CHLORIDE 105 100-110 CARBON DIOXIDE 26 20-30 ANION GAP 6 4-16 GLUCOSE 102 H 65-100 CREATININE 0.64 0.5-1.5 CALCIUM 8.1 L 8.5-10.5 eGFR(CKD-EPI 2020) >90.0 >60 Dec 15, 2021 06:43 AM [facility] CBC PROFILE Sp ecimen Type: BLOOD No comment enter ed. Ordering Provid er: ISATU TODD Report Released Date/Time: Dec 10, 2021 07:22 AM Reporting Lab: [facility] T [facility] [address] [facility] [address] Performing Lab: [facility] [address] [facility] [address] WBC 5.7 4.5-11.0 RBC 4.22 L 4.23-5.66 [...] CYTOGENETIC Specimen Type: ESOPHAGUS 02:59 PM VAOC FISH([facility]) Comment: ~For T est: CYTOGENETIC FISH([facility]) ~FISH HER 2 NUE, FFPE See full report in [employer] Image display viewer/tab#LAB-Reference Ordering Provid er: NIURKA MILLER Report Released Date/Time: Dec 21, 2021 12:11 PM Reporting Lab: [facility] [address] [facility] [address] Performing Lab: [facility] CYTOGENETIC FISH([facility]) comment Dec 14, 2021 [facility] P4 GLU,BUN,CREAT,LYTES,CA Speci men Type: PLASMA 06:27 AM [facility] Comment: Tests performed on Volt (405) SN:[id number] Ordering Provid er: ISATU TODD Report Released Date/Time: Dec 11, 2021 07:42 AM Reporting Lab: [facility] [address] [facility] [address] Performing Lab: [facility] [address] [facility] [address] UREA NITROGEN 10 7-25 SODIUM 137 135-145 [...] Reporting Lab: [facility] [address] [facility] [address] Performing Lab: [facility] [address] [facility] [address] WBC 6.0 4.5-11.0 RBC 4.29 4.23-5.66 HGB [...] PLASMA 06:34 AM [facility] Comment: Tests performed on Volt (405) SN:[id number] Ordering Provid er: ISATU TODD Report Released Date/Time: Dec 11, 2021 07:42 AM Reporting Lab: [facility] [address] [facility] [address] [facility] [address] [facility] [address] UREA NITROGEN 12 7-25 SODIUM 136 135-145 [...] Reporting Lab: [facility] [address] [facility] [address] Performing Lab: [facility] [address] [facility] [address] WBC 5.6 4.5-11.0 RBC 4.28 4.23-5.66 HGB [...] PLASMA 06:21 AM [facility] Comment: Tests performed on Volt (405) SN:[id number] Ordering Provid er: ISATU TODD Report Released Date/Time: Dec 11, 2021 07:42 AM Reporting Lab: [facility] [address] [facility] [address] Performing Lab: [facility] [address] [facility] [address] UREA NITROGEN 11 7-25 SODIUM 139 135-145 [...] Dec 10, 2021 07:22 AM Reporting Lab: [facility] [address] [facility] [address] [facility] [address] [facility] [address] WBC 5.5 4.5-11.0 RBC 4.37 4.23-5.66 HGB [...] 0.00 0-0 Dec 12, 2021 06:00 AM [facility] SolutionsT [facility] MAGNESIUM Sp ecimen Type: PLASMA Comment: Testin g Performed on Volt (405) SN:[id number] Ordering Provid er: ISATU TODD Report Released Date/Time: Dec 12, 2021 08:24 AM Reporting Lab: [place] [facility] [employer] [address] [facility] [address] Performing Lab: [employer] [place] [employer] [employer]T [facility] [address] [facility] [address] MAGNESIUM 1.8 1.6-2.6 Dec 12, 2021 06:00 AM [employer] PHOSPHORUS Sp ecimen Type: PLASMA Comment: Testin g Performed on Volt (405) SN:[id number] Ordering Provid er: ISATU TODD Report Released Date/Time: Dec 12, 2021 08:24 AM Reporting Lab: [place] [employer]T [facility] [address] [facility] [address] Performing Lab: [place] [employer] [address] [facility] [address] PHOSPHORUS 3.1 2.5-5.0 Dec 11, 2021 06:15 AM [employer] [place] [employer]T [employer] ELECTROLYTES Sp ecimen Type: PLASMA Comment: Tests performed on Volt (405) SN:[id number] Ordering Provid er: ISATU TODD Report Released Date/Time: Dec 10, 2021 07:22 AM Reporting Lab: [place] [employer] [address] [facility] [address] Performing Lab: [place] [employer] [address] [facility] [address] SODIUM 137 135-145 POTASSIUM 4.3 3.5-5.0 CHLORIDE 108 100-110 CARBON DIOXIDE 20 20-30 ANION GAP 9 4-16 Dec 11, 2021 06:15 AM [place] TrueLensT [facility] CBC PROFILE Sp ecimen Type: BLOOD Comment: Result s checked Ordering Provid er: ISATU TODD Report Released Date/Time: Dec 10, 2021 07:22 AM Reporting Lab: [place] OMEGAT [facility] [address] [facility] [address] Performing Lab: [place] OMEGAT [facility] [address] [facility] [address] WBC 5.8 4.5-11.0 RBC 4.37 4.23-5.66 HGB [...] 0.00 0-0 Dec 11, 2021 06:00 AM [facility] PHOSPHORUS Sp ecimen Type: PLASMA Comment: Tests performed on Volt (048) SN:[id number] Results checked Ordering Provid er: ISATU TODD Report Released Date/Time: Dec 11, 2021 07:44 AM Reporting Lab: [facility] DUFFT [facility] [address] [facility] [address] Performing Lab: [place] OMEGAT MIMROC [address] [facility] [address] PHOSPHORUS 3.0 2.5-5.0 Dec 10, 2021 08:05 AM [place] [facility] MAGNESIUM Sp ecimen Type: PLASMA Comment: [place] [id number] on Dec 10, 2021@08:31 Tests performed on Volt (405) SN:[id number] Ordering Provid er: ISATU TODD Report Released Date/Time: Dec 10, 2021 07:22 AM Reporting Lab: [place] [facility] [address] [place] [facility] [place] [address] Performing Lab: [place] [facility] [address] [place] [facility] [place] [address] MAGNESIUM 1.7 1.6-2.6 Dec 10, 2021 08:05 AM [place] UREA NITROGEN Specimen Type: PLASMA [facility] Comment: [place] [id number] on Dec 10, 2021@08:31 Tests performed on Volt (405) SN:[id number] Ordering Provid er: ISATU TODD Report Released Date/Time: Dec 10, 2021 07:22 AM Reporting Lab: [place] [facility] [address] [place] [facility] [place] [address] Performing Lab: [place] [facility] [address] [place] [facility] [place] [address] UREA NITROGEN 8 7-25 Dec 10, 2021 08:05 AM [place] [facility] PHOSPHORUS Sp ecimen Type: PLASMA Comment: [place] [id number] on Dec 10, 2021@08:31 Tests performed on Volt (405) SN:[id number] Ordering Provid er: ISATU TODD Report Released Date/Time: Dec 10, 2021 07:22 AM Reporting Lab: [place] [facility] [address] [place] [facility] [place] [address] Performing Lab: [place] [facility] [address] [place] [facility] [place] [address] PHOSPHORUS 1.8 L 2.5-5.0 Dec 10, 2021 08:05 AM [place] [facility] CALCIUM Sp ecimen Type: PLASMA Comment: [place] [id number] on Dec 10, 2021@08:31 Tests performed on Volt (405) SN:[id number] Ordering Provid er: ISATU TODD Report Released Date/Time: Dec 10, 2021 07:22 AM Reporting Lab: [place] [facility] [address] [facility] [address] Performing Lab: [place] [facility] [address] [facility] [address] CALCIUM 8.3 L 8.5-10.5 Dec 10, 2021 08:05 AM [place] [facility] ELECTROLYTES Sp ecimen Type: PLASMA Comment: [place] [id number] on Dec 10, 2021@08:31 Tests performed on [employer] (405) SN:[id number] Ordering Provid er: ISATU TODD Report Released Date/Time: Dec 10, 2021 07:22 AM Reporting Lab: [place] [facility] [address] [facility] [address] Performing Lab: [place] [facility] [address] [facility] [address] SODIUM 139 135-145 POTASSIUM 3.7 3.5-5.0 CHLORIDE 107 100-110 CARBON DIOXIDE 24 20-30 ANION GAP 8 4-16 Dec 10, 2021 08:05 [place] CREATININE WITH eGFR Specime n Type: PLASMA AM [facility] PANEL Comment: [place] [id number] on Dec 10, 2021@08:31 Tests performed on [employer] (405) SN:[id number] Ordering Provid er: ISATU TODD Report Released Date/Time: Dec 10, 2021 07:22 AM Reporting Lab: [place] [facility] [address] [facility] [address] Performing Lab: [place] [facility] [address] [facility] [address] CREATININE 0.78 0.5-1.5 eGFR(CKD-EPI 2020) >90.0 >60 Dec 10, 2021 08:05 AM [place] [facility] GLUCOSE Sp ecimen Type: PLASMA Comment: [place] [id number] on Dec 10, 2021@08:31 Tests performed on [employer] (405) SN:[id number] Ordering Provid er: ISATU TODD Report Released Date/Time: Dec 10, 2021 07:22 AM Reporting Lab: [place] [facility] [address] [facility] [address] Performing Lab: [place] [facility] [address] [facility] [address] GLUCOSE 144 H 65-100 Dec 10, 2021 08:05 AM [facility] CBC PROFILE Sp ecimen Type: BLOOD No comment enter ed. Ordering Provid er: ISATU TODD Report Released Date/Time: Dec 10, 2021 07:22 AM Reporting Lab: [place] OMEGAT [facility] [address] [facility] [address] Performing Lab: [place] OMEGAT [facility] [address] [facility] [address] WBC 7.0 4.5-11.0 RBC 4.54 4.23-5.66 HGB [...] 0.00 0-0 Dec 09, 2021 06:46 AM [facility] MAGNESIUM Sp ecimen Type: PLASMA Comment: Tests performed on Volt (674) SN:[id number] Ordering Provid er: ISATU TODD Report Released Date/Time: Dec 08, 2021 10:23 AM Reporting Lab: [facility] [address] [facility] [address] Performing Lab: [facility] [address] [facility] [address] MAGNESIUM 1.6 1.6-2.6 Dec 09, 2021 [facility] P4 GLU,BUN,CREAT,LYTES,CA Speci men Type: PLASMA 06:46 AM [facility] Comment: Tests performed on Volt (405) SN:[id number] Ordering Provid er: ISATU TODD Report Released Date/Time: Dec 08, 2021 05:00 PM Reporting Lab: [facility] [address] [facility] [address] Performing Lab: [facility] [address] [facility] [address] UREA NITROGEN 6 L 7-25 SODIUM 134 [...] Reporting Lab: [facility] [address] [facility] [address] Performing Lab: [facility] [address] [facility] [address] WBC 7.1 4.5-11.0 RBC 4.40 4.23-5.66 HGB [...] 0.00 0-0 Dec 08, 2021 06:39 AM [place] [employer] T [facility] MAGNESIUM Sp ecimen Type: PLASMA Comment: Testin g Performed on Volt (405) SN:[id number] Ordering Provid er: ISATU TODD Report Released Date/Time: Dec 07, 2021 10:32 AM Reporting Lab: [facility] [address] [facility] [address] Performing Lab: [facility] [address] [facility] [address] MAGNESIUM 1.5 L 1.6-2.6 Dec 08, 2021 [place] [employer] T P4 GLU,BUN,CREAT,LYTES,CA Speci men Type: PLASMA 06:39 AM [facility] Comment: Testin g Performed on Volt (405) SN:[id number] Ordering Provid er: ISATU TODD Report Released Date/Time: Dec 07, 2021 10:32 AM Reporting Lab: [employer] T [facility] [address] [facility] [address] Performing Lab: [facility] [address] [facility] [address] UREA NITROGEN 6 L 7-25 SODIUM 136 135-145 POTASSIUM 3.3 L 3.5-5.0 CHLORIDE 104 100-110 CARBON DIOXIDE 22 20-30 ANION GAP 10 4-16 GLUCOSE 133 H 65-100 CREATININE 0.76 0.5-1.5 CALCIUM 8.4 L 8.5-10.5 eGFR(CKD-EPI 2020) >90.0 >60 Dec 08, 2021 06:39 AM WH[place] [employer] T [facility] CBC PROFILE Sp ecimen Type: BLOOD No comment enter ed. Ordering Provid er: ISATU TODD Report Released Date/Time: Dec 07, 2021 10:32 AM Reporting Lab: [facility] [address] [facility] [address] Performing Lab: [facility] [address] [facility] WBC [...] e: PLASMA AM [facility] Comment: Tests performed on Volt (405 SN:[id number] Ordering Provid er: PORFIRIO WALTERS Report Released Date/Time: Dec 06, 2021 06:57 PM Reporting Lab: [facility] [address] [facility] [address] Performing Lab: [facility] [address] [facility] [address] PROTEIN, TOTAL 5.7 L 6.0-8.5 ALBUMIN 2.4 L 3.2-5.0 BILIRUBIN, TOTAL 0.4 0.2-1.2 ALKALINE PHOSPHATASE 109 40-150 ALT(SGPT) 10 7-52 AST(SGOT) 15 5-34 FIB-4 SCORE 1.92 <2.67 Dec 07, 2021 [facility] GLU,BUN,CREAT,LYTES,CA Speci men Type: PLASMA 06:42 AM [facility] Comment: Tests performed on Volt (405) SN:[id number] Ordering Provid er: PORFIRIO WALTERS Report Released Date/Time: Dec 06, 2021 06:57 PM Reporting Lab: [place] [facility] [address] [facility] [address] Performing Lab: [place] [facility] [address] [facility] [address] UREA NITROGEN 9 7-25 SODIUM 135 135-145 POTASSIUM 3.5 3.5-5.0 CHLORIDE 103 100-110 CARBON DIOXIDE 22 20-30 ANION GAP 10 4-16 GLUCOSE 92 65-100 CREATININE 0.73 0.5-1.5 CALCIUM 8.0 L 8.5-10.5 eGFR(CKD-EPI 2020) >90.0 >60 Dec 07, 2021 06:42 AM [place] CBC PROFILE Specimen Type: BLOOD [facility] No comment enter ed. Ordering Provid er: PORFIRIO WALTERS Report Released Date/Time: Dec 06, 2021 06:57 PM Reporting Lab: [place] [facility] [address] [facility] [address] Performing Lab: [facility] [address] [facility] [address] WBC 5.7 4.5-11.0 RBC 4.15 L 4.23-5.66 [...] [facility]AM[facility]OC %) AUTOMATED Comment: Tests performed on Volt (405) SN:[id number] Ordering Provid er: ISATU TODD Report Released Date/Time: Dec 07, 2021 10:28 AM Reporting Lab: [place] [facility] [address] [facility] [address] Performing Lab: [place] [facility] [address] [facility] [address] RETICULOCYTES (%) AUTOMATED 1.23 0. 6-2.0 RETICULOCYTES (ABS) AUTOMATED 0.052 0.030-0.090 Dec 06, 2021 09:45 [place] MRSA SURVL NARES Specimen Ty pe: NARES PM [facility] DNA No comment enter ed. Ordering Provid er: ALVARO VARGHESE Report Released Date/Time: Dec 07, 2021 02:20 AM Reporting Lab: [place] [facility] [address] [facility] [address] Performing Lab: [place] [facility] [address] [facility] [address] MRSA SURVL NARES DNA NEGATIVE NEGATIVE Dec 06, 2021 06:00 [place] URINALYSIS W/REFLEX TO Speci men Type: URINE PM [facility] CULTURE No comment enter ed. Ordering Provid er: JELANI SÁNCHEZ Report Released Date/Time: Dec 06, 2021 11:57 AM Reporting Lab: [place] [facility] [address] [facility] [address] Performing Lab: [place] [facility] [address] [facility] [address] URINE COLOR Arlin YELLOW SPECIFIC GRAVITY 1.029 [...] 21, [place] VARIANT Comment: https://www.cdc.gov/coronavirus/2019-ncov/cases-updates/variant- surveillance/variant-info.html [employer] SARS CoV 2 [employer] Assay-GX is a next-generation sequencing (NGS) assa 2021 [facility] SEQUENCING y that determine s the complete genome sequence of the SARS-CoV-2 virus. The assay contains variant-tolerant primers to broaden and improve the coverage for variant detection and increase the sensitivity 12:00 [facility] PNL(WH) of the panel to enable detection from lower viral titer samples. The assay is run on the [employer] Sequencer, which performs automated library preparation, sequencing, analysis, and reporting. PM The sequence an alysis includes determination of viral phylogenetic lineage by comparison to the reference strain Wuhan-Hu-1, GenBank: [id number]. Sequence determination may not be possible owing [...] Dec 06, 2021 01:13 PM Reporting Lab: [facility] [address] [facility] [address] Performing Lab: [facility] [address] [facility] [address] SARS-CoV-2 CLADE() 22C (OMICRON) SARS-CoV-2 LINEAGE() BA.2.12.1 Dec 06, 2021 12:00 [facility] COVID-19 AG SCREEN Specimen Type: NASAL CAVITY PM [facility] PANEL BINAX(405) Comment: Testi ng Performed By: Mike Briscoe Ordering Provid er: JELAIN SÁNCHEZ Report Released Date/Time: Dec 08, 2021 08:23 AM Reporting Lab: [facility] [address] [facility] [address] Performing Lab: [facility] [address] [facility] [address] COVID-19 AG SCRN(wrj BINAX) POSITIVE HH NE G Dec 06, 2021 12:00 PM [facility] LIVER PROFILE Sp ecimen Type: PLASMA Comment: Testin g Performed on [employer]am [employer] (405) SN:[id number] Ordering Provid er: JELANI SÁNCHEZ Report Released Date/Time: Dec 06, 2021 11:57 AM Reporting Lab: [facility] [address] [facility] [address] Performing Lab: [facility] [address] [facility] [address] PROTEIN, TOTAL 6.6 6.0-8.5 ALBUMIN 2.8 L 3.2-5.0 BILIRUBIN, TOTAL 0.6 0.2-1.2 ALKALINE PHOSPHATASE 134 40-150 ALT(SGPT) 13 7-52 AST(SGOT) 18 5-34 FIB-4 SCORE 1.94 <2.67 Dec 06, 2021 12:[address] [facility] Sp ecimen Type: PLASMA Comment: Tests performed on [employer]am [employer] (405) SN:[id number] Ordering Provid er: JELANI SÁNCHEZ Report Released Date/Time: Dec 06, 2021 11:57 AM Reporting Lab: [facility] [address] [facility] [address] Performing Lab: [facility] [address] [facility] [address] TROPONIN II 0.03 0.00-0.29 Dec 06, 2021 [facility] P4 GLU,BUN,CREAT,LYTES,CA Speci men Type: PLASMA 12:00 PM [facility] Comment: Testin g Performed on Pham [employer] (405) SN:[id number] Ordering Provid er: JELANI SÁNCHEZ Report Released Date/Time: Dec 06, 2021 11:57 AM Reporting Lab: [place] DO[place] T [facility] [address] [facility] [address] Performing Lab: [facility] [address] [facility] [address] UREA NITROGEN 13 7-25 SODIUM 138 135-145 POTASSIUM 3.8 3.5-5.0 CHLORIDE 103 100-110 CARBON DIOXIDE 23 20-30 ANION GAP 12 4-16 GLUCOSE 105 H 65-100 CREATININE 0.90 0.5-1.5 CALCIUM 8.7 8.5-10.5 eGFR(CKD-EPI 2020) >90.0 >60 Dec 06, 2021 12:00 PM [facility] BNP(P) Sp ecimen Type: PLASMA Comment: Tests performed on Pham [employer]cher (405) [id number] Ordering Provid er: JELANI SÁNCHEZ Report Released Date/Time: Dec 06, 2021 11:57 AM Reporting Lab: [facility] [address] [facility] [address] Performing Lab: [facility] DOYLE T [facility] [address] [facility] [address] BNP(P) 224.8 H 10-100 Dec 06, 2021 [facility] [place] COVID-19+FLU/RSV DIAGNOSTIC Spe cimen Type: NASOPHARYNX 12:00 PM [facility] PANEL(405) Comment: Tests performed on [employer]ician[employer]pert (405) Critical results called to and read back by: ALESHIA WILKINSON RN 12/06/21 @ 1312 Ordering Provid er: JELANI SÁNCHEZ Report Released Date/Time: Dec 06, 2021 11:57 AM Reporting Lab: [facility] [address] [facility] [address] Performing Lab: [place] [facility] [address] [facility] [address] FLU A(PCR) NEGATIVE NEGATIVE FLU B(PCR) NEGATIVE NEGATIVE RSV(PCR) NEGATIVE NEGATIVE COVID-19([id number]) DETECTED HH NO T DETECTED Dec 06, 2021 [facility]:[address] [facility] Sp ecimen Type: BLOOD No comment enter ed. Ordering Provid er: JELANI SÁNCHEZ Report Released Date/Time: Dec 06, 2021 11:57 AM Reporting Lab: [facility] [address] [facility] [address] Performing Lab: [facility] [address] [facility] [address] WBC 7.2 4.5-11.0 RBC 4.86 4.23-5.66 HGB [...] WHITE 2021 08:47 /min mm[Hg] RIVER PM [facility] Dec 14, 0 2021 03:14 RIVER PM T [facility] Dec 14, 97.1 F 91 139/68 20 /min 99 % WHITE 2021 02:23 /min mm[Hg] RIVER PM T [facility] Dec 14, 0 WHITE 2021 10:15 RIVER AM T [facility] Dec 14, 97.5 F 94 138/68 18 /min 97 % 0 WHITE 2021 10:13 /min mm[Hg] RIVER AM [facility] Social History: Smoking Status (Most current) [...] place. Date/Time Smoking Status/Tobacco Use Comment [facility] Apr 01, 2020 01:16 PM QUIT TOBACCO USE 1-7 YEARS AGO [facility] Mar 24, 2020 03:00 PM QUIT TOBACCO USE 1-7 YEARS AGO [facility] Feb 21, 2019 [...] USE IN PAST YEAR [facility] DOYLE [facility] May 01, 2016 03:11 PM QUIT TOBACCO USE IN PAST YEAR [facility] May 01, 2016 11:19 AM QUIT TOBACCO USE IN PAST YEAR [facility] DO[facility] Mar 16, 2016 12:50 PM V1-PT DECLINES REF TO TOBACCO [facility] CESS PRGM Mar 16, 2016 12:50 PM V1-PT THINKING ABOUT QUIT [facility] HOSP[facility] TOBACCO USE Aug 12, 2015 08:48 AM CURRENT SMOKER CAREY Yates [facility] Radiology Reports: +/- 30 days of [...] W/WO CONTRAST: MARYELLEN LONG LUCAS LARES N [id number] -1950 [facility] Exm Date: DEC 13, 2021@12:57 Req Phys: ISATU TODD Loc: OP Unknown/0 12-15-2021@13:20 Img Loc: MRI IMAGING (OOS) Service: [facility] MEDICINE (Case [id number] COMPLETE) MRI ABDOMEN W/WO CONTRAST (M RI Detailed) CPT:40384 Reason for Study: further characterization of a [...] new lyphadenopathy REQUESTING MD: Isatu Todd PAGER: [phone] PHONE: [phone] Weight: 232.2 lb [105.32 kg] (12/12/2021 05:00) [...] patient will need to arrange for a [employer] driver to take him/her home after the [...] 15, 2021 Date Verified: DEC 15, 2021 Cosmetic Sales Advisor E-Sig:/ES/MARYELLEN LONG Report: MRI ABDOMEN W/WO CONTRAST [...] MALIGNANCY Primary Interpreting Staff: Staff AMELIA THOMAS (Cosmetic Sales Advisor) / Dec 10, 2021 09:[address] ABDOMEN & PELVIS: RADIOLOGY,OUTSIDE [facility] LUCAS MEEK N [id number] -1950 M SERVICE [facility] Exm Date: DEC 10, 2021@09:30 Req Phys: ISATU TODD Loc: 1S [facility]/12-10@10:57 Img Loc: CT SCAN (OOS) Service: [facility] (Case [id number] COMPLETE) CT ABD & PELVIS WITHOUT CONT RAST (CT Detailed) CPT:10384 Reason for Study: 71 yo male with [...] RADIOLOGY [phone] to speak to the appropriate vehicle modification technician. Report Status: Verified Date Reported: DEC 10, 2021 Date Verified: DEC 10, 2021 Cosmetic Sales Advisor E-Sig: Report: EXAM: CT abdomen and pelvis [...] ph nodes. READING PHYSICIAN: Ramone Munoz D.O. [phone] 12/10/2021 10:55 EDT [facility] National Teleradiology Program [phone] (For Medical Practitioner Use Only ) [address], [facility] [address] [place] [address] Attention Patients / Veterans: If you have ques tions or concerns about these test results, please contact your o rdering provider or primary care team. Primary Diagnostic Code: SIGNIFICANT ABNORMALIT Y, ATTN NEEDED Primary Interpreting Staff: RADIOLOGY,OUTSIDE SERVICE, Staff Physician / Dec 09, 2021 07:34 AM BASW (MODIFIED): JESSIE CHENEY [facility] LUCAS MEEK N [id number] -1950 [facility] Exm Date: DEC 09, 2021@07:34 Req Phys: ISATU TODD Loc: 1S MED/12-09@11:26 Img Loc: XRAY (OOS) Service: [facility] MEDICINE (Case [id number] COMPLETE) BASW (MODIFIED) (RAD Detaile d) CPT:61638 Contrast Media : Barium Reason for Study: dysphagia ?esophageal spasm Clinical History: Report Status: Verified Date Reported: DEC 09, 2021 Date Verified: DEC 09, 2021 Cosmetic Sales Advisor E-Sig:/ES/JESSIE CHENEY Report: DELISA (MODIFIED) , 12/09/2021 [...] REQUIRED Primary Interpreting Staff: JESSIE CHENEY, RADIOLOGIST (Cosmetic Sales Advisor) /TLC Dec 06, 2021 12:[address] CHEST (INCLUDES ADRENALS): JESSIE CHENEY [facility] LUCAS MEEK N [id number] -1950 [facility] Exm Date: DEC 06, 2021@12:59 Req Phys: JELANI SÁNCHEZ Loc: [facility] ED DAYS M 1RD (Req'g Loc) Img Loc: CT SCAN (OOS) Service: Unknown (Case [id number] COMPLETE) CT THORAX W/O CONT (CT Detai led) CPT:85994 Reason for Study: Opacification right chest Clinical History: No contrast allergy BUN: 13 (12/06/21 12:00) CREATI: 0.90 (12/06/21 12:00) eGFR 05/16/21 09:43 52 L Weight: 232.6 lb [105.51 kg] (12/06/2021 11:40) BODY MASS INDEX - NO HEIGHTS FOUND Pager number: [phone] STAT orders MUST be called t o RADIOLOGY [phone] to speak to the appropriate vehicle modification technician. Indications - Other: Opacification right chest, covid positive, lung cancer histo Report Status: Verified Date Reported: DEC 06, 2021 Date Verified: DEC 06, 2021 Cosmetic Sales Advisor E-Sig:/ES/JESSIE CHENEY Report: CT THORAX W/O CONT [...] REQUIRED Primary Interpreting Staff: JESSIE CHENEY, RADIOLOGIST (Cosmetic Sales Advisor) Primary Interpreting Resident: PRINCE CHAMPION, Resident /BR Dec 06, 2021 11:58 AM CHEST SINGLE VIEW: JESSIE CHENEY LUCAS MEEK N [id number] -1950 [facility] Exm Date: DEC 06, 2021@11:58 Req Phys: JELANI SÁNCHEZ Pat Loc: [facility] ED DAYS M 1RD (Req'g Loc) Img Loc: XRAY (OOS) Service: Unknown (Case [id number] COMPLETE) CHEST SINGLE VIEW (RAD Detai led) CPT:94812 Proc Modifiers : PORTABLE EXAM Reason for Study: SOB, home covid test positive Clinical History: Report Status: Verified Date Reported: DEC 06, 2021 Date Verified: DEC 06, 2021 Cosmetic Sales Advisor E-Sig:/ES/JESSIE CHENEY Report: Exam type: Chest x-ray [...] REQUIRED Primary Interpreting Staff: JESSIE CHENEY, RADIOLOGIST (Cosmetic Sales Advisor) /TLC Pathology Reports: +/- 30 days of [...] AM LR SURGICAL PATHOLOGY REPORT: STEFANY MILLER [facility] LOCAL TITLE: LR SURGICAL PATHOLOGY REPORT [facility] STANDARD TITLE: PATHOLOGY REPORT DATE OF NOTE: JAN 03, 2022@10:28:01 ENTRY DATE: JAN 03, 2022@10:28:01 AUTHOR: NIURKA MILLER EXP COSIGNER: URGENCY: STATUS: COMPLETED $APHDR Reporting Lab: [facility] [CLIA# [id number]] [address] [place] [address] - - - - - - [...] automatically d ocumented from SURGERY package case #[id number] Field (#32) PRINCIPAL PRE-OP DIAGNOSIS, (#.72) OTHER [...] automatically d ocumented from SURGERY package case #[id number] Field (#34) PRINCIPAL POST-OP DIAG, (#.74) OTHER [...] Label: Lucas Meek Paperwork: Lucas Meek Cassette: [id number];..;KALYANI;.;405;[id number] Specimen is labeled: ES bx Received in formalin are several pieces of pale boyd and brown tissue, 1.2 x 0.7 cm in aggregate. Submitted entirely in 1 cassette [id number];..;KALYANI;.;405;[id number] SAW 12/15/2021 Microscopic exam: *+* MODIFIED REPORT [...] report in rendering the final pathologic diagnosis. [address] [address] CPT: 98982 /emely/ NIURKA Yeung MD Signed Jan 03, 2022@10:28 Performing Laboratory: Surgical Pathology Report Performed By: CAREY MONTOYA [facility] [CLIA# [id number]] [address] [place] [address] $FTR - - - - - [...] - - LUCAS MEEK STANDARD FORM 515 ID:[id number] SEX:M :1950 AGE: 71 LOC: SDM END PCP: Isatu Todd /emely/ NIURKA MILLER Staff Signed: 01/03/2022 10:28 Dec 21, 2021 11:46 AM LR SURGICAL PATHOLOGY REPORT[facility] LOC[facility] TITLE: LR SURGICAL PATHOLOGY REPORT [facility] STANDARD TITLE: PATHOLOGY REPORT DATE OF NOTE: DEC 21, 2021@11:46:59 ENTRY DATE: DEC 21, 2021@11:46:59 AUTHOR: NIURKA MILLER EXP COSIGNER: URGENCY: STATUS: COMPLETED $APHDR Reporting Lab: [facility] [CLIA# [id number]] [address] [place] [address] - - - - - - [...] automatically d ocumented from SURGERY package case #[id number] Field (#32) PRINCIPAL PRE-OP DIAGNOSIS, (#.72) OTHER [...] automatically d ocumented from SURGERY package case #[id number] Field (#34) PRINCIPAL POST-OP DIAG, (#.74) OTHER [...] Label: Lucas Meek Paperwork: Lucas Meek Cassette: [id number];..;KALYANI;.;405;[id number] Specimen is labeled: ES bx Received in formalin are several pieces of pale boyd and brown tissue, 1.2 x 0.7 cm in aggregate. Submitted entirely in 1 cassette [id number];..;KALYANI;.;405;[id number] SAW 12/15/2021 Microscopic exam: DIAGNOSIS: A. 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 Kendell long. TIARA Coombs was notified on 12/21/21. The attending pathologist who signature mansoor ears on this report has reviewed all diagnostic slides and has edited t he gross and/or microscopic portion of this report in rendering the final pathologic diagnosis. [address] [address] CPT: 00527 /emely/ NIURKA Yeung MD Signed Dec 21, 2021@11:46 Performing Laboratory: Surgical Pathology Report Performed By: [facility] [CLIA# [id number]] [address] [place] [address] $FTR - - - - - [...] - - LUCAS MEEK STANDARD FORM 515 ID:[id number] SEX:M :1950 AGE: 71 LOC: [facility] END PCP: Isatu Todd /emely/ NIURKA Yeung MD Signed: 12/21/2021 11:46 Dec 06, 2021 03:30 PM LR MICROBIOLOGY RE[facility]: [facility] Reporting Lab: [facility] [CLIA# [id number]] [address] [place] [address] Accession [UID]: [id number] [[id number]] Receiv ed: Dec 06, 2021@16:14 Collection sample: BLOOD CUL T BOTTLE(NIRMAL/AERO)Collection date: Dec 06, 2021 15:30 Site/Specimen: BLOOD Provider: JELANI SÁNCHEZ Comment on specimen: LAC Test(s) ordered: BLOOD CULTURE ANAEROBI C....... completed: Dec 12, 2021 06:18 * BACTERIOLOGY FINAL REPORT => Dec 12, 2021 06:1 8 TECH CODE: 54128 Bacteriology Remark(s): NO GROWTH IN 5 DAYS =--=--=--=--=--=--=--=--=--=--=--=--=--= --=--=--=--=--=--=--=--=--=--=--=--=-- Performing Laboratory: Bacteriology Report Performed By: [facility] [CLIA# [id number]] [address] [place] [address] Dec 06, 2021 03:30 PM LR MICROBIOLOGY REPORT: [facility] Reporting Lab: [facility] [CLIA# [id number]] [address] [place] [address] Accession [UID]: [id number] [[id number]] Receiv ed: Dec 06, 2021@16:14 Collection sample: BLOOD CUL T BOTTLE(NIRMAL/AERO)Collection date: Dec 06, 2021 15:30 Site/Specimen: BLOOD Provider: JELANI SÁNCHEZ Comment on specimen: LAC Test(s) ordered: BLOOD CULTURE AEROBIC. ........ completed: Dec 12, 2021 06:17 * BACTERIOLOGY FINAL REPORT => Dec 12, 2021 06:1 7 TECH CODE: 99907 Bacteriology Remark(s): NO GROWTH IN 5 DAYS =--=--=--=--=--=--=--=--=--=--=--=--=--= --=--=--=--=--=--=--=--=--=--=--=--=-- Performing Laboratory: Bacteriology Report Performed By: [facility] [CLIA# [id number]] [address] [place] [address]
--- OUTSIDE RECORDS SUMMARY | 2022-01-19 09:01 | XMS_ITS ---
DAILY HOSPITALIZATION DATA [facility] Encounter Summary Created on:December 10, 2021 Patient:LUCAS MEEK Sex:Male :1950 Author Organization [facility] Address [address] [place] [id number] Support Name Relationship Address Phone YUSRA MEEK Unavailable [address] [place] [address] YUSRA MEEK Unavailable [address] [place] [address] CLAY MOSLEY Unavailable Unavailable SJ SANTACRUZ Unavailable [...] MEDICARE MEDICARE PART Jun 18, PART A [id number] DO KALYANI PATIENT (WNR) (M) A 2016 13A 1 [place] MEDICARE MEDICARE PART Jun 18, PART B [id number] DO KALYANI PATIENT (WNR) (M) B 2016 13A 1 [place] MEDICARE MEDICARE PART Jun 18, PART A [id number] KALYANIDO PATIENT (WNR) (M) A 2017 VH81 2 [place] MEDICARE MEDICARE PART Jun 18, PART B [id number] DO KALYANI PATIENT (WNR) (M) B 2017 VH81 2 [place] UNITED MEDICARE MCR(Jun 18 [id number] Luz MEEK PATIENT HEALTHCARE ADVANTAGE NR) 2021 37 0 [facility] (WNR) Selected Encounter This section includes the information on record at [place] for the Encounter. Date/Time Encounter Type Encounter Description Reason Provider Source Dec 10, 2021 12:50 Inpatient Visit DAILY HOSPITALIZATION DATA PM IHE Encounter Template Text not used by [place] Plan of Treatment: Future Appointments (+ 6 months) and Future Tests (+/- 45 days) The Plan of Treatment section includes future care activities for the patient from all [place] treatmentfacilities. This section includes future appointments and future orders which are active, pending orscheduled.Future Appointments This section includes appointments that were scheduled to occur 6 months from the date of the Encounter, up to a maximum of 20 appointments. The data comes from all [place] treatment facilities. Appointment Date/Time Appointment Type Appointment Facili ty Name Dec 21, 2021 08:00 AM AMB[place]ORY [place] NONE [place] [facility] Jan 06, 2022 02:00 PM [place] [facility] Jan 10, 2022 11:30 AM AM[facility]ATORY - MEDICINE [facility] Jan 24, 2022 08:00 AM [place] [facility] Feb 21, 2022 10:00 AM AMBUL[place] - [place] [facility] Mar 21, 2022 [...] the Encounter. The data comes from all [place] treatment [facility]. Test Date/Time Test Type Test Details Facility Name October 31, 2021 07:37 AM Consult Order [facility]ARE-EGD [facility] Cons Drilling Supervisor's Choice November 15, 2021 10:37 AM Consult Order [facility] CARE-PODIATRY Cons Drilling Supervisor's Choice Dec 06, 2021 12:52 PM [place]acy [place] Infusion Order [facility] Dec 06, 2021 03:24 PM Pharmacy [place] [facility] Dec 06, 2021 03:40 PM [place]acy [place] [facility] Dec 15, 2021 08:41 AM Consult Order SPEECH PATHOLOGY [place] Cons [facility] Drilling Supervisor's Choice Jan 15, 2022 10:08 PM Consult Order [facility] CARE-PALLIATIVE CARE Cons Drilling Supervisor's Choice Lab Results: +/- 30 days [...] Reference Range Comment Dec 15, 2021 [place] P4 GLU,BUN,CREAT,LYTES,CA Speci men Type: PLASMA 06:43 AM [facility] Comment: Tests performed on Renthackr (405) SN:[id number] Ordering Provid er: ISATU TODD Report Released Date/Time: Dec 11, 2021 07:42 AM Reporting Lab: [facility] T [facility] [address] [facility] [address] Performing Lab: [facility]3]T [facility] [address] [facility] [address] UREA NITROGEN 9 7-25 SODIUM 137 135-145 POTASSIUM 3.8 3.5-5.0 CHLORIDE 105 100-110 CARBON DIOXIDE 26 20-30 ANION GAP 6 4-16 GLUCOSE 102 H 65-100 CREATININE 0.64 0.5-1.5 CALCIUM 8.1 L 8.5-10.5 eGFR(CKD-EPI 2020) >90.0 >60 Dec 15, 2021 06:43 AM [place] [facility]]T [facility] CBC PROFILE Sp ecimen Type: BLOOD No comment enter ed. Ordering Provid er: ISATU TODD Report Released Date/Time: Dec 10, 2021 07:22 AM Reporting Lab: [facility] [address] [facility] [address] Performing Lab: [facility]3]T [facility] [address] [facility] [address] WBC 5.7 4.5-11.0 RBC 4.22 L 4.23-5.66 [...] 0-0 Dec 14, 2021 [facility] CYTOGENETIC Specimen Type: ESOPHAGUS 02:59 PM VAOC FISH([facility] Comment: ~For T est: CYTOGENETIC FISH([facility]) ~FISH HER 2 NUE, FFPE See full report in [employer] Image display viewer/tab#LAB-Reference Ordering Provid er: NIURKA MILLER Report Released Date/Time: Dec 21, 2021 12:11 PM Reporting Lab: [facility] [address] [facility] [address] Performing Lab: [facility] CYTOGENETIC FISH([facility]) comment Dec 14, 2021 [facility] P4 GLU,BUN,CREAT,LYTES,CA Speci men Type: PLASMA 06:27 AM [facility] Comment: Tests performed on Renthackr (405) SN:[id number] Ordering Provid er: ISATU TODD Report Released Date/Time: Dec 11, 2021 07:42 AM Reporting Lab: [facility] [address] [facility] [address] Performing Lab: [facility] [address] [facility] [address] UREA NITROGEN 10 7-25 SODIUM 137 135-145 [...] Lab: [facility] [address] [facility] [address] Performing Lab: [facility] [address] [facility] [address] WBC 6.0 4.5-11.0 RBC 4.29 4.23-5.66 HGB [...] 0-0 Dec 13, 2021 [facility] P4 GLU,BUN,CREAT,LYTES,CA Speci men Type: PLASMA 06:34 AM [facility] Comment: Tests performed on Renthackr (405) SN:[id number] Ordering Provid er: ISATU TODD Report Released Date/Time: Dec 11, 2021 07:42 AM Reporting Lab: [facility] [address] [facility] [address] Performing Lab: [facility] [address] [facility] [address] UREA NITROGEN 12 7-25 SODIUM 136 135-145 [...] Lab: [facility] [address] [facility] [address] Performing Lab: [facility] [address] [facility] [address] WBC 5.6 4.5-11.0 RBC 4.28 4.23-5.66 HGB [...] NRBC 0.00 0-0 Dec 12, 2021 [facility] P4 GLU,BUN,CREAT,LYTES,CA Speci men Type: PLASMA 06:21 AM [facility] Comment: Tests performed on Renthackr (405) SN:[id number] Ordering Provid er: ISATU TODD Report Released Date/Time: Dec 11, 2021 07:42 AM Reporting Lab: [facility] [address] [facility] [address] Performing Lab: [facility] [address] [facility] [address] UREA NITROGEN 11 7-25 SODIUM 139 135-145 [...] Dec 10, 2021 07:22 AM Reporting Lab: [facility] [address] [facility] [address] Performing Lab: [facility] [address] [facility] [address] WBC 5.5 4.5-11.0 RBC 4.37 4.23-5.66 HGB [...] 0.00 0-0 Dec 12, 2021 06:00 AM [employer] [facility] MAGNESIUM Sp ecimen Type: PLASMA Comment: Testin g Performed on Renthackr (405) SN:[id number] Ordering Provid er: ISATU TODD Report Released Date/Time: Dec 12, 2021 08:24 AM Reporting Lab: [place] [facility] [address] [facility] [address] Performing Lab: [employer] [place] [facility] [address] [facility] [address] MAGNESIUM 1.8 1.6-2.6 Dec 12, 2021 06:00 AM [employer] PHOSPHORUS Sp ecimen Type: PLASMA Comment: Testin g Performed on Renthackr (405) SN:[id number] Ordering Provid er: ISATU TODD Report Released Date/Time: Dec 12, 2021 08:24 AM Reporting Lab: [place] [facility]T [facility] [address] [facility] [address] Performing Lab: [place] [facility] [address] [facility] [address] PHOSPHORUS 3.1 2.5-5.0 Dec 11, 2021 06:15 AM [employer] [place] [facility] ELECTROLYTES Sp ecimen Type: PLASMA Comment: Tests performed on Renthackr (405) SN:[id number] Ordering Provid er: ISATU TODD Report Released Date/Time: Dec 10, 2021 07:22 AM Reporting Lab: [place] [facility]T [facility] [address] [facility] [address] Performing Lab: [place] [facility] [address] [facility] [address] SODIUM 137 135-145 POTASSIUM 4.3 3.5-5.0 CHLORIDE 108 100-110 CARBON DIOXIDE 20 20-30 ANION GAP 9 4-16 Dec 11, 2021 06:15 AM [place] [employer] [facility] CBC PROFILE Sp ecimen Type: BLOOD Comment: Result s checked Ordering Provid er: ISATU TODD Report Released Date/Time: Dec 10, 2021 07:22 AM Reporting Lab: [place] [facility] [facility] [address] [facility] [address] Performing Lab: [facility] [place] OMEGAT [facility] [address] [facility] [address] WBC 5.8 4.5-11.0 RBC 4.37 4.23-5.66 HGB [...] 0.00 0-0 Dec 11, 2021 06:00 AM [facility] PHOSPHORUS Sp ecimen Type: PLASMA Comment: Tests performed on Renthackr (426) SN:[id number] Results checked Ordering Provid er: ISATU TODD Report Released Date/Time: Dec 11, 2021 07:44 AM Reporting Lab: [facility] [facility] [facility] [address] [facility] [address] Performing Lab: [place] [facility]GAT [facility] [address] [facility] [address] PHOSPHORUS 3.0 2.5-5.0 Dec 10, 2021 08:05 AM [place] [facility] MAGNESIUM Sp ecimen Type: PLASMA Comment: [place] [id number] on Dec 10, 2021@08:31 Tests performed on Renthackr (405) SN:[id number] Ordering Provid er: ISATU TODD Report Released Date/Time: Dec 10, 2021 07:22 AM Reporting Lab: [place] [facility] [address] [place] [facility] [place] [address] Performing Lab: [place] [facility] [address] [place] [facility] [place] [address] MAGNESIUM 1.7 1.6-2.6 Dec 10, 2021 08:05 AM [place] [facility] PHOSPHORUS Sp ecimen Type: PLASMA Comment: [place] [id number] on Dec 10, 2021@08:31 Tests performed on Renthackr (405) SN:[id number] Ordering Provid er: ISATU TODD Report Released Date/Time: Dec 10, 2021 07:22 AM Reporting Lab: [place] [facility] [address] [place] [facility] [place] [address] Performing Lab: [place] [facility] [address] [place] [facility] [place] [address] PHOSPHORUS 1.8 L 2.5-5.0 Dec 10, 2021 08:05 AM [place] UREA NITROGEN Specimen Type: PLASMA [facility] Comment: [place] [id number] on Dec 10, 2021@08:31 Tests performed on Renthackr (405) SN:[id number] Ordering Provid er: ISATU TODD Report Released Date/Time: Dec 10, 2021 07:22 AM Reporting Lab: [place] [facility] [address] [place] [facility] [place] [address] Performing Lab: [place] [facility] [address] [place] [facility] [place] [address] UREA NITROGEN 8 7-25 Dec 10, 2021 08:05 AM [place] [facility] GLUCOSE Sp ecimen Type: PLASMA Comment: [place] [id number] on Dec 10, 2021@08:31 Tests performed on Renthackr (405) SN:[id number] Ordering Provid er: ISATU TODD Report Released Date/Time: Dec 10, 2021 07:22 AM Reporting Lab: [place] [facility] [address] [facility] [address] Performing Lab: [place] [facility] [address] [facility] [address] GLUCOSE 144 H 65-100 Dec 10, 2021 08:05 AM [place] [facility] ELECTROLYTES Sp ecimen Type: PLASMA Comment: [place] [id number] on Dec 10, 2021@08:31 Tests performed on Renthackr (405) SN:[id number] Ordering Provid er: ISATU TODD Report Released Date/Time: Dec 10, 2021 07:22 AM Reporting Lab: [place] [facility] [address] [facility] [address] Performing Lab: [place] [facility] [address] [facility] [address] SODIUM 139 135-145 POTASSIUM 3.7 3.5-5.0 CHLORIDE 107 100-110 CARBON DIOXIDE 24 20-30 ANION GAP 8 4-16 Dec 10, 2021 08:05 [place] CREATININE WITH eGFR Specime n Type: PLASMA AM [facility] PANEL Comment: [place] [id number] on Dec 10, 2021@08:31 Tests performed on Pham Optima Neuroscience (405) SN:[id number] Ordering Provid er: ISATU TODD Report Released Date/Time: Dec 10, 2021 07:22 AM Reporting Lab: [place] [facility] [address] [facility] [address] Performing Lab: [place] [facility] [address] [facility] [address] CREATININE 0.78 0.5-1.5 eGFR(CKD-EPI 2020) >90.0 >60 Dec 10, 2021 08:05 AM [place] [facility] CBC PROFILE Sp ecimen Type: BLOOD No comment enter ed. Ordering Provid er: ISATU TODD Report Released Date/Time: Dec 10, 2021 07:22 AM Reporting Lab: [place] [facility] [address] [facility] [address] Performing Lab: [place] [facility] [address] [facility] [address] WBC 7.0 4.5-11.0 RBC 4.54 4.23-5.66 HGB [...] 0.00 0-0 Dec 10, 2021 08:05 AM [facility] CALCIUM Sp ecimen Type: PLASMA Comment: [place] [id number] on Dec 10, 2021@08:31 Tests performed on Renthackr (405) SN:[id number] Ordering Provid er: ISATU TODD Report Released Date/Time: Dec 10, 2021 07:22 AM Reporting Lab: [facility] [address] [facility] [address] Performing Lab: [facility] [address] [facility] [address] CALCIUM 8.3 L 8.5-10.5 Dec 09, 2021 06:46 AM [place] [employer] MAGNESIUM Sp ecimen Type: PLASMA Comment: Tests performed on Renthackr (405) SN:[id number] Ordering Provid er: ISATU TODD Report Released Date/Time: Dec 08, 2021 10:23 AM Reporting Lab: [facility] [address] [facility] [address] Performing Lab: [facility] [address] [facility] [address] MAGNESIUM 1.6 1.6-2.6 Dec 09, 2021 [facility] P4 GLU,BUN,CREAT,LYTES,CA Speci men Type: PLASMA 06:46 AM [facility] Comment: Tests performed on Renthackr (405) SN:[id number] Ordering Provid er: ISATU TODD Report Released Date/Time: Dec 08, 2021 05:00 PM Reporting Lab: [facility] [address] [facility] [address] Performing Lab: [facility] [address] [facility] [address] UREA NITROGEN 6 L 7-25 SODIUM 134 [...] Lab: [facility] [address] [facility] [address] Performing Lab: [facility] [address] [facility] [address] WBC 7.1 4.5-11.0 RBC 4.40 4.23-5.66 HGB [...] 0-0 Dec 08, 2021 06:39 AM [place] [facility]]T [facility] MAGNESIUM Sp ecimen Type: PLASMA Comment: Testin g Performed on Renthackr (405) SN:[id number] Ordering Provid er: ISATU TODD Report Released Date/Time: Dec 07, 2021 10:32 AM Reporting Lab: [facility] [address] [facility] [address] Performing Lab: [facility] [address] [facility] [address] MAGNESIUM 1.5 L 1.6-2.6 Dec 08, 2021 06:39 AM [place] [facility]]T [facility] CBC PROFILE Sp ecimen Type: BLOOD No comment enter ed. Ordering Provid er: ISATU TODD Report Released Date/Time: Dec 07, 2021 10:32 AM Reporting Lab: [facility] [address] [facility] [address] Performing Lab: [facility] [address] [facility] [address] WBC 8.4 4.5-11.0 RBC 4.75 4.23-5.66 HGB [...] ABSOLUTE NRBC 0.00 0-0 Dec 08, 2021 [facility]4 GLU,BUN,CREAT,LYTES,CA Speci men Type: PLASMA 06:39 AM [facility] Comment: Testin g Performed on Pham Optima Neuroscience (405) SN:[id number] Ordering Provid er: ISATU TODD Report Released Date/Time: Dec 07, 2021 10:32 AM Reporting Lab: [facility] [address] [facility] [address] Performing Lab: [facility] [address] [facility] [address] UREA NITROGEN 6 L 7-25 SODIUM 136 135-145 POTASSIUM 3.3 L 3.5-5.0 CHLORIDE 104 100-110 CARBON DIOXIDE 22 20-30 ANION GAP 10 4-16 GLUCOSE 133 H 65-100 CREATININE 0.76 0.5-1.5 CALCIUM 8.4 L 8.5-10.5 eGFR(CKD-EPI 2020) >90.0 >60 Dec 07, 2021 [facility] P4 GLU,BUN,CREAT,LYTES,CA Speci men Type: PLASMA 06:42 AM [facility] Comment: Tests performed on Pham Optima Neuroscience (405) SN:[id number] Ordering Provid er: PORFIRIO WALTERS Report Released Date/Time: Dec 06, 2021 06:57 PM Reporting Lab: [place] [facility] [address] [facility] [address] Performing Lab: [facility] [address] [facility] [address] UREA NITROGEN 9 7-25 SODIUM 135 135-145 POTASSIUM 3.5 3.5-5.0 CHLORIDE 103 100-110 CARBON DIOXIDE 22 20-30 ANION GAP 10 4-16 GLUCOSE 92 65-100 CREATININE 0.73 0.5-1.5 CALCIUM 8.0 L 8.5-10.5 eGFR(CKD-EPI 2020) >90.0 >60 Dec 07, 2021 06:42 [place] LIVER PROFILE Specimen Typ e: PLASMA AM [facility]OC Comment: Tests performed on Fjuul Armoured Car Escort (405) SN:[id number] Ordering Provid er: PORFIRIO WALTERS Report Released Date/Time: Dec 06, 2021 06:57 PM Reporting Lab: [facility] [address] [facility] [address] Performing Lab: [facility] [address] [facility] [address] PROTEIN, TOTAL 5.7 L 6.0-8.5 ALBUMIN 2.4 L 3.2-5.0 BILIRUBIN, TOTAL 0.4 0.2-1.2 ALKALINE PHOSPHATASE 109 40-150 ALT(SGPT) 10 7-52 AST(SGOT) 15 5-34 FIB-4 SCORE 1.92 <2.67 Dec 07, 2021 06:42 AM [facility] [facility] CBC PROFILE Specimen Type: BLOOD [facility] No comment enter ed. Ordering Provid er: PORFIRIO WALTERS Report Released Date/Time: Dec 06, 2021 06:57 PM Reporting Lab: [facility] [address] [facility] [address] Performing Lab: [facility] [address] [facility] [address] WBC 5.7 4.5-11.0 RBC 4.15 L 4.23-5.66 [...] VAMROC %) AUTOMATED Comment: Tests performed on Renthackr (405) SN:[id number] Ordering Provid er: ISATU TODD Report Released Date/Time: Dec 07, 2021 10:28 AM Reporting Lab: [place] [facility] [address] [facility] [address] Performing Lab: [place] [facility] [address] [facility] [address] RETICULOCYTES (%) AUTOMATED 1.23 0. 6-2.0 RETICULOCYTES (ABS) AUTOMATED 0.052 0.030-0.090 Dec 06, 2021 09:45 [place] MRSA SURVL NARES Specimen Ty pe: NARES PM [facility] DNA No comment enter ed. Ordering Provid er: ALVARO VARGHESE Report Released Date/Time: Dec 07, 2021 02:20 AM Reporting Lab: [place] [facility] [address] [facility] [address] Performing Lab: [place] [facility] [address] [facility] [address] MRSA SURVL NARES DNA NEGATIVE NEGATIVE Dec 06, 2021 06:00 [place] URINALYSIS W/REFLEX TO Speci men Type: URINE PM [facility] CULTURE No comment enter ed. Ordering Provid er: JELANI SÁNCHEZ Report Released Date/Time: Dec 06, 2021 11:57 AM Reporting Lab: [place] [facility] [address] [facility] [address] Performing Lab: [place] [facility] [address] [facility] [address] URINE COLOR Arlin YELLOW SPECIFIC GRAVITY 1.029 [...] 21, RIVER VARIANT Comment: https://www.cdc.gov/coronavirus/2019-ncov/cases-updates/variant- surveillance/variant-info.html The Gratafy SARS CoV 2 CRE Secure Research Assay-GX is a next-generation sequencing (NGS) assa 2021 [facility] SEQUENCING y that determine s the complete genome sequence of the SARS-CoV-2 virus. The assay contains variant-tolerant primers to broaden and improve the coverage for variant detection and increase the sensitivity 12:00 [facility] PNL(WH) of the panel to enable detection from lower viral titer samples. The assay is run on the sliceX Sequencer, which performs automated library preparation, sequencing, analysis, and reporting. PM The sequence an alysis includes determination of viral phylogenetic lineage by comparison to the reference strain Wuhan-Hu-1, GenBank: [id number]. Sequence determination may not be possible owing [...] Dec 06, 2021 01:13 PM Reporting Lab: [facility] [address] [facility] [address] Performing Lab: [facility] [address] [facility] [address] SARS-CoV-2 CLADE() 22C (OMICRON) SARS-CoV-2 LINEAGE() BA.2.12.1 Dec 06, 2021 12:00 [facility] COVID-19 AG SCREEN Specimen Type: NASAL CAVITY PM [facility] PANEL BINAX(405) Comment: Testi ng Performed By: Mike Briscoe Ordering Provid er: JELANI SÁNCHEZ Report Released Date/Time: Dec 08, 2021 08:23 AM Reporting Lab: [facility] [address] [facility] [address] Performing Lab: [facility] [address] [facility] [address] COVID-19 AG SCRN(wrj BINAX) POSITIVE HH NE G Dec 06, 2021 12:00 PM [facility] TROPONIN II Sp ecimen Type: PLASMA Comment: Tests performed on Pham Armoured Car Escort (405) SN:[id number] Ordering Provid er: JELANI SÁNCHEZ Report Released Date/Time: Dec 06, 2021 11:57 AM Reporting Lab: [facility] [address] [facility] [address] Performing Lab: [facility] [address] [facility] [address] TROPONIN II 0.03 0.00-0.29 Dec 06, 2021 [place] P4 GLU,BUN,CREAT,LYTES,CA Speci men Type: PLASMA 12:00 PM [facility] Comment: Testin g Performed on Pham Armoured Car Escort (405) SN:[id number] Ordering Provid er: JELANI SÁNCHEZ Report Released Date/Time: Dec 06, 2021 11:57 AM Reporting Lab: [place] [facility] [address] [facility] [address] Performing Lab: [place] [facility] [address] [facility] [address] UREA NITROGEN 13 7-25 SODIUM 138 135-145 POTASSIUM 3.8 3.5-5.0 CHLORIDE 103 100-110 CARBON DIOXIDE 23 20-30 ANION GAP 12 4-16 GLUCOSE 105 H 65-100 CREATININE 0.90 0.5-1.5 CALCIUM 8.7 8.5-10.5 eGFR(CKD-EPI 2020) >90.0 >60 Dec 06, 2021 12:00 PM [facility] LIVER PROFILE Sp ecimen Type: PLASMA Comment: Testin g Performed on [employer] Escort (405) [id number] Ordering Provid er: JELANI SÁNCHEZ Report Released Date/Time: Dec 06, 2021 11:57 AM Reporting Lab: [facility] [address] [facility] [address] Performing Lab: [facility] [address] [facility] [address] PROTEIN, TOTAL 6.6 6.0-8.5 ALBUMIN 2.8 L 3.2-5.0 BILIRUBIN, TOTAL 0.6 0.2-1.2 ALKALINE PHOSPHATASE 134 40-150 ALT(SGPT) 13 7-52 AST(SGOT) 18 5-34 FIB-4 SCORE 1.94 <2.67 Dec 06, 2021 [facility] COVID-19+FLU/RSV DIAGNOSTIC Spe cimen Type: NASOPHARYNX 12:00 PM [facility] PANEL(405) Comment: Tests performed on [employer] Genexpert (405) Critical results called to and read back by: ALESHIA WILKINSON RN 12/06/21 @ 1312 Ordering Provid er: JELANI SÁNCHEZ Report Released Date/Time: Dec 06, 2021 11:57 AM Reporting Lab: [facility] [address] [facility] [address] Performing Lab: [facility] [address] [facility] [address] FLU A(PCR) NEGATIVE NEGATIVE FLU B(PCR) NEGATIVE NEGATIVE RSV(PCR) NEGATIVE NEGATIVE COVID-19([id number]) DETECTED HH NO T DETECTED Dec 06, 2021 12:00 PM [facility] BNP(P) Sp ecimen Type: PLASMA Comment: Tests performed on [employer] Escort (405) [id number] Ordering Provid er: JELANI SÁNCHEZ Report Released Date/Time: Dec 06, 2021 11:57 AM Reporting Lab: [facility] [facility] [address] [facility] [address] Performing Lab: [facility] [address] [facility] [address] BNP(P) 224.8 H 10-100 Dec 06, 2021 12:00 PM [facility] MONTOYA [facility] CBC PROFILE Sp ecimen Type: BLOOD No comment enter ed. Ordering Provid er: JELANI SÁNCHEZ Report Released Date/Time: Dec 06, 2021 11:57 AM Reporting Lab: [facility] [address] [facility] [address] [facility] [address] [facility] [address] WBC 7.2 4.5-11.0 RBC 4.86 4.23-5.66 HGB [...] 94 122/75 18 /min 97 % 0 [place] 2021 09:00 /min mm[Hg] RIVER PM T [facility] Dec 10, 0 WHITE 2021 08:57 RIVER PM T [facility] Dec 10, 0 WHITE 2021 04:17 RIVER PM T [facility] Dec 10, 97.8 F 93 125/74 20 /min 95 % 0 [place] 2021 01:40 /min mm[Hg] RIVER PM T [facility] Dec 10, 231.9 32 [place] 2021 10:22 lb RIVER AM [facility] Social History: Smoking Status (Most current) and Tobacco Use (All prior to encounter date) This section includes the most current, and the historical, smoking and tobacco-related health factors from the [place] facility where the Encounter took place.Current Smoking Status This section includes the most current smoking, or tobacco-related health factor, from the [place] facility where the Encounter took place. Date/Time Current Smoking Status Comment Facility Dec 06, 2021 11:40 AM QUIT TOBACCO USE > 7 YEARS AGO [facility] Tobacco Use History This section includes a history of the smoking, or tobacco- related health factors, that were collected on or before the date of the Encounter. The data comes from the [place] facility where the Encounter took place. Date/Time Smoking Status/Tobacco Use Comment [facility] Apr 01, 2020 01:16 PM QUIT TOBACCO [...] [facility] May 01, 2016 03:11 PM QUIT TOBACCO USE IN PAST YEAR CAREY DOYLE [facility] May 01, 2016 11:19 AM QUIT TOBACCO USE IN PAST YEAR CAREY DOYLE [facility] Mar 16, 2016 12:50 PM V1-PT DECLINES REF TO TOBACCO CAREY DOYLE [facility] CESS PRGM Mar 16, 2016 12:50 PM V1-PT THINKING ABOUT QUIT CAREY DOYLE [facility] TOBACCO USE Aug 12, 2015 08:48 AM CURRENT SMOKER CAREY Yates [facility] Radiology Reports: +/- 30 days of [...] the Encounter. The data comes from all [place] treatment facilities. Date/Time Radiology Report Provider Source Dec 13, 2021 12:57 PM MRI ABDOMEN W/WO CONTRAST: MARYELLEN LONG LUCAS LARES N [id number] -1950 [facility] Exm Date: DEC 13, 2021@12:57 Req Phys: ISATU TODD Loc: OP Unknown/0 12-15-2021@13:20 Img Loc: MRI IMAGING (OOS) Service: [facility] MEDICINE (Case [id number] COMPLETE) MRI ABDOMEN W/WO CONTRAST (M RI Detailed) CPT:36774 Reason for Study: further characterization of a [...] new lyphadenopathy REQUESTING MD: Isatu Todd PAGER: [phone] PHONE: [phone] Weight: 232.2 lb [105.32 kg] (12/12/2021 05:00) [...] patient will need to arrange for a bulk 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 to take him/her home after [...] 15, 2021 Date Verified: DEC 15, 2021 Tmr Teacher E-Sig:/ES/MARYELLEN LONG Report: MRI ABDOMEN W/WO [...] MALIGNANCY Primary Interpreting Staff: Staff AMELIA THOMAS (Tmr Teacher) / Dec 10, 2021 09:[address] ABDOMEN & PELVIS: RADIOLOGY,OUTSIDE [facility] LUCAS MEEK N [id number] -1950 M SERVICE [facility] Exm Date: DEC 10, 2021@09:30 Req Phys: ISATU TODD Loc: MED/12-10@10:57 Img Loc: CT SCAN (OOS) Service: [facility] MEDICINE (Case [id number] COMPLETE) CT ABD & PELVIS WITHOUT CONT RAST (CT Detailed) CPT:17807 Reason for Study: 71 yo male with [...] 10, 2021 Date Verified: DEC 10, 2021 Tmr Teacher E-Sig: Report: EXAM: CT abdomen and [...] ph nodes. READING PHYSICIAN: Ramone Munoz D.O. -[phone] 12/10/2021 10:55 EDT [facility] [phone] (For Medical Practitioner Use Only ) [address] [facility], [facility] [address] [place] [address] Attention Patients / Veterans: If you have ques tions or concerns about these test results, please contact [facility] or primary care team. Primary Diagnostic Code: SIGNIFICANT ABNORMALIT Y, ATTN NEEDED Primary Interpreting Staff: RADIOLOGY,OUTSIDE SERVICE, Staff Physician / Dec 09, 2021 07:34 AM BASW (MODIFIED): JESSIE CHENEY [facility] LUCAS MEEK N [id number] -1950 M [facility] Exm Date: DEC 09, 2021@07:34 Req Phys: ISATU TODD Loc: 1S MED/12-09@11:26 Img Loc: XRAY (OOS) Service: [facility] MEDICINE (Case [id number] COMPLETE) BASW (MODIFIED) (RAD Detaile d) CPT:07051 Contrast Media : Barium Reason for Study: dysphagia ?esophageal spasm Clinical History: Report Status: Verified Date Reported: DEC 09, 2021 Date Verified: DEC 09, 2021 Tmr Teacher E-Sig:/ES/JESSIE CHENEY Report: BASW (MODIFIED) , 12/09/2021 [...] REQUIRED Primary Interpreting Staff: JESSIE CHENEY, RADIOLOGIST (Tmr Teacher) /TLC Dec 06, 2021 12:[address] CHEST (INCLUDES ADRENALS): JESSIE CHENEY [facility] LUCAS MEEK N [id number] -1950 [facility] Exm Date: DEC 06, 2021@12:59 Req Phys: GONZALOJELANI Loc: [facility] ED DAYS M 1RD (Req'g Loc) Img Loc: CT SCAN (OOS) Service: Unknown (Case [id number] COMPLETE) CT THORAX W/O CONT (CT Detai led) CPT:33711 Reason for Study: Opacification right chest Clinical [...] 06, 2021 Date Verified: DEC 06, 2021 Tmr Teacher E-Sig:/ES/JESSIE CHENEY Report: CT THORAX W/O [...] REQUIRED Primary Interpreting Staff: JESSIE CHENEY, RADIOLOGIST (Tmr Teacher) Primary Interpreting Resident: PRINCE CHAMPION, Resident /BR Dec 06, 2021 11:58 AM CHEST SINGLE VIEW: JESSIE CHENEY DOUGLAS N [id number] -1950 M [facility] Exm Date: DEC 06, 2021@11:58 Req Phys: JELANI SÁNCHEZ Pat Loc: [facility] ED DAYS M 1RD (Req'g Loc) Img Loc: XRAY (OOS) Service: Unknown (Case [id number] COMPLETE) CHEST SINGLE VIEW (RAD Detai led) CPT:13408 Proc Modifiers : PORTABLE EXAM Reason for Study: SOB, home covid test positive Clinical History: Report Status: Verified Date Reported: DEC 06, 2021 Date Verified: DEC 06, 2021 Tmr Teacher E-Sig:/ES/JESSIE CHENEY Report: Exam type: Chest [...] REQUIRED Primary Interpreting Staff: JESSIE CHENEY, RADIOLOGIST (Tmr Teacher) /TLC Pathology Reports: +/- 30 days [...] the Encounter. The data comes from all [place] treatment facilities. Date/Time Pathology Report Provider Source Jan 03, 2022 10:28 AM LR SURGICAL PATHOLOGY REPORT: STEFANY MILLER LOCAL TITLE: LR SURGICAL PATHOLOGY REPORT [facility] STANDARD TITLE: PATHOLOGY REPORT DATE OF NOTE: JAN 03, 2022@10:28:01 ENTRY DATE: JAN 03, 2022@10:28:01 AUTHOR: NIURKA MILLER EXP COSIGNER: URGENCY: STATUS: COMPLETED $APHDR Reporting Lab: CAREY MONTOYA [facility] [CLIA# [id number]] [address] [place] [address] - - - - - - [...] automatically d ocumented from SURGERY package case #[id number] Field (#32) PRINCIPAL PRE-OP DIAGNOSIS, (#.72) OTHER [...] automatically d ocumented from SURGERY package case #[id number] Field (#34) PRINCIPAL POST-OP DIAG, (#.74) OTHER [...] Label: Lucas Meek Paperwork: Lucas Meek Cassette: [id number];..;KALYANI;.;405;[phone] Specimen is labeled: ES bx Received in formalin are several pieces of pale boyd and brown tissue, 1.2 x 0.7 cm in aggregate. Submitted entirely in 1 cassette [id number];..;KALYANI;.;405;[id number] SAW 12/15/2021 Microscopic exam: *+* MODIFIED REPORT *+* (Last modified: JAN 03, 2022@09:30:20 typed by NIURKA WADDELL) DIAGNOSIS: A. 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 Kendell long. TIARA Coombs was notified on 12/21/21. Modified on 01/03/22 to include report from [facility] stating that tumor is NEGATIVE for her2/ matheus amplification. The attending pathologist who signature mansoor ears on this report has reviewed all diagnostic slides and has edited t he gross and/or microscopic portion of this report in rendering the final pathologic diagnosis. [address] [address] CPT: 39496 /emely/ NIURKA Yeung MD Signed Jan 03, 2022@10:28 Performing Laboratory: Surgical Pathology Report Performed By: CAREY MONTOYA [facility] [CLIA# [id number]] [address] [place] [address] $FTR - - - - - [...] - - LUCAS MEEK STANDARD FORM 515 ID:[id number] SEX:M :1950 AGE: 71 LOC: SDM END PCP: Isatu Todd /emely/ NIURKA MILLER Staff Signed: 01/03/2022 10:28 Dec 21, 2021 11:46 AM LR SURGICAL PATHOLOGY REPORT: STEFANY MILLER [facility] LOCAL TITLE: LR SURGICAL PATHOLOGY REPORT [facility] STANDARD TITLE: PATHOLOGY REPORT DATE OF NOTE: DEC 21, 2021@11:46:59 ENTRY DATE: DEC 21, 2021@11:46:59 AUTHOR: NIURKA MILLER EXP COSIGNER: URGENCY: STATUS: COMPLETED $APHDR Reporting Lab: [facility] [CLIA# [id number]] [address] [place] [address] - - - - - - [...] automatically d ocumented from SURGERY package case #[id number] Field (#32) PRINCIPAL PRE-OP DIAGNOSIS, (#.72) OTHER [...] automatically d ocumented from SURGERY package case #[id number] Field (#34) PRINCIPAL POST-OP DIAG, (#.74) OTHER [...] Label: Lucas Meek Paperwork: Lucas Meek Cassette: [id number];..;KALYANI;.;704;[id number] Specimen is labeled: ES bx Received in formalin are several pieces of pale boyd and brown tissue, 1.2 x 0.7 cm in aggregate. Submitted entirely in 1 cassette [id number];..;KALYANI;.;405;[id number] SAW 12/15/2021 Microscopic exam: DIAGNOSIS: A. 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 Kendell long. TIARA Coombs was notified on 12/21/21. The attending pathologist who signature mansoor ears on this report has reviewed all diagnostic slides and has edited t he gross and/or microscopic portion of this report in rendering the final pathologic diagnosis. [address] [address] CPT: 90786 /emely/ NIURKA Yeung MD Signed Dec 21, 2021@11:46 Performing Laboratory: Surgical Pathology Report Performed By: [facility] [CLIA# [id number]] [address] [place] [address] $FTR - - - - - [...] - - LUCAS MEEK STANDARD FORM 515 ID:[id number] SEX:M :1950 AGE: 71 LOC: [facility] END PCP: Isatu Todd /charmaine Yeung MD Signed: 12/21/2021 11:46 Dec 06, 2021 03:30 PM LR MICROBIOLOGY REPORT: [facility] Reporting Lab: [facility] [CLIA# [id number]] [address] [place] [address] Accession [UID]: [id number] [[id number]] Receiv ed: Dec 06, 2021@16:14 Collection sample: BLOOD CUL T BOTTLE(NIRMAL/AERO)Collection date: Dec 06, 2021 15:30 Site/Specimen: BLOOD Provider: JELANI SÁNCHEZ Comment on specimen: LAC Test(s) ordered: BLOOD CULTURE ANAEROBI C....... completed: Dec 12, 2021 06:18 * BACTERIOLOGY FINAL REPORT => Dec 12, 2021 06:1 8 TECH CODE: 20005 Bacteriology Remark(s): NO GROWTH IN 5 DAYS =--=--=--=--=--=--=--=--=--=--=--=--=--= --=--=--=--=--=--=--=--=--=--=--=--=-- Performing Laboratory: Bacteriology Report Performed By: [facility] [CLIA# [id number]] [address] [place] [address] Dec 06, 2021 03:30 PM LR MICROBIOLOGY REPORT: [facility] Reporting Lab: [facility] [CLIA# [id number]] [address] [place] [address] Accession [UID]: [id number] [[id number]] Receiv ed: Dec 06, 2021@16:14 Collection sample: BLOOD CUL T BOTTLE(NIRMAL/AERO)Collection date: Dec 06, 2021 15:30 Site/Specimen: BLOOD Provider: JELANI SÁNCHEZ Comment on specimen: LAC Test(s) ordered: BLOOD CULTURE AEROBIC. ........ completed: Dec 12, 2021 06:17 * BACTERIOLOGY FINAL REPORT => Dec 12, 2021 06:1 7 TECH CODE: [id number] Bacteriology Remark(s): NO GROWTH IN 5 DAYS =--=--=--=--=--=--=--=--=--=--=--=--=--= --=--=--=--=--=--=--=--=--=--=--=--=-- Performing Laboratory: Bacteriology Report Performed By: [facility] [CLIA# [id number]] [address] [place] [address]
--- OUTSIDE RECORDS SUMMARY | 2022-01-19 09:01 | XMS_ITS ---
DAILY HOSPITALIZATION DATA [facility]Y DOYLE [facility] Encounter Summary Created on:December 15, 2021 Patient:LUCAS MEEK Sex:Male :1950 Author Organization [facility] Address [address] [place] [id number] Support Name Relationship Address Phone YUSRA MEEK Unavailable [address] [place] [address] YUSRA MEEK Unavailable [address] [facility] [place] [place] [address] CLAY MOSLEY Unavailable Unavailable SJ SANTACRUZ Unavailable [...] MEDICARE MEDICARE PART Jun 18, PART A [id number] DO KALYANI PATIENT (WNR) (M) A 2016 13A 1 U[place]AS MEDICARE MEDICARE PART Jun 18, PART B [id number] DO KALYANI PATIENT (WNR) (M) B 2016 13A 1 [place] MEDICARE MEDICARE PART Jun 18, PART A [id number] KALYANIDO PATIENT (WNR) (M) A 2017 VH81 2 [place] MEDICARE MEDICARE PART Jun 18, PART B [id number] DO KALYANI PATIENT (WNR) (M) B 2017 VH81 2 [place] UNITED MEDICARE MCR(Jun 18 [id number] Luz MEEK PATIENT HEALTHCARE ADVANTAGE NR) 2021 37 0 [facility] (WNR) Selected Encounter This section includes the information on record at [place] for the Encounter. Date/Time Encounter Type Encounter Description Reason Provider Source Dec 15, 2021 02:18 Inpatient Visit DAILY HOSPITALIZATION DATA AM [facility] Encounter Template Text not used by [place] [...] AM AMB[place]ORY - NONE [place] [facility] Jan 06, 2022 02:00 PM [place] [facility] Jan 10, 2022 11:30 AM AMBULATORY - MEDICINE [facility] Jan 24, 2022 08:00 [place] [facility] Feb 21, 2022 10:00 AM [place]UL[place] [facility] Mar 21, [...] The data comes from all [place] treatment [facility]. Test Date/Time Test Type Test Details Facility Name October 31, 2021 07:37 AM Consult Order COMMUNITY CARE-EGD [facility] Cons E Business Consultant's Choice November 15, 2021 10:37 AM Consult Order [facility] CARE-PODIATRY Cons E Business Consultant's Choice Dec 06, 2021 12:52 PM Pharmacy [place] Infusion Order [facility] Dec 06, 2021 03:24 PM [place]acy [place] [facility] Dec 06, 2021 03:40 PM [place]acy [place] [facility] Dec 15, 2021 08:41 AM Consult Order SPEECH PATHOLOGY [place] OUTPATIENT Cons [facility] E Business Consultant's Choice Jan 15, 2022 10:08 PM Consult Order [facility] CARE-PALLIATIVE CARE Cons E Business Consultant's Choice Lab Results: +/- 30 days of [...] Reference Range Comment Dec 15, 2021 [place] P4 GLU,BUN,CREAT,LYTES,CA Speci men Type: PLASMA 06:43 AM [facility] Comment: Tests performed on iOnRoad (405) SN:[id number] Ordering Provid er: ISATU TODD Report Released Date/Time: Dec 11, 2021 07:42 AM Reporting Lab: [facility] T [facility] [address] [facility] [address] Performing Lab: [facility] [address] [facility] [address] UREA NITROGEN 9 7-25 SODIUM 137 135-145 POTASSIUM 3.8 3.5-5.0 CHLORIDE 105 100-110 CARBON DIOXIDE 26 20-30 ANION GAP 6 4-16 GLUCOSE 102 H 65-100 CREATININE 0.64 0.5-1.5 CALCIUM 8.1 L 8.5-10.5 eGFR(CKD-EPI 2020) >90.0 >60 Dec 15, 2021 06:43 AM [facility] CBC PROFILE Sp ecimen Type: BLOOD No comment enter ed. Ordering Provid er: ISATU TODD Report Released Date/Time: Dec 10, 2021 07:22 AM Reporting Lab: [facility] [facility] T [facility] [address] [facility] [address] Performing Lab: [facility] [address] [facility] [address] WBC 5.7 4.5-11.0 RBC 4.22 L 4.23-5.66 [...] CYTOGENETIC Specimen Type: ESOPHAGUS 02:59 PM [facility] Comment: ~For T est: CYTOGENETIC FISH([facility]) ~FISH HER 2 NUE, FFPE See full report in Bestowed Image display viewer/tab#LAB-Reference Ordering Provid er: NIURKA MILLER Report Released Date/Time: Dec 21, 2021 12:11 PM Reporting Lab: [facility] [address] [facility] [address] Performing Lab: [facility] CYTOGENETIC FISH([facility]) comment Dec 14, 2021 [facility] P4 GLU,BUN,CREAT,LYTES,CA Speci men Type: PLASMA 06:27 AM [facility] Comment: Tests performed on iOnRoad (405) SN:[id number] Ordering Provid er: ISATU TODD Report Released Date/Time: Dec 11, 2021 07:42 AM Reporting Lab: [facility] [address] [facility] [address] Performing Lab: [facility] [address] [facility] [address] UREA NITROGEN 10 7-25 SODIUM 137 135-145 [...] AM Reporting Lab: [facility] [address] [facility] [address] Performing Lab: [facility] [address] [facility] [address] WBC 6.0 4.5-11.0 RBC 4.29 4.23-5.66 HGB [...] GLU,BUN,CREAT,LYTES,CA Speci men Type: PLASMA 06:34 AM [facility] Comment: Tests performed on iOnRoad (405) SN:[id number] Ordering Provid er: ISATU TODD Report Released Date/Time: Dec 11, 2021 07:42 AM Reporting Lab: [facility] [address] [facility] [address] Performing Lab: [facility] [address] [facility] [address] UREA NITROGEN 12 7-25 SODIUM 136 135-145 [...] AM Reporting Lab: [facility] [address] [facility] [address] Performing Lab: [facility] [address] [facility] [address] WBC 5.6 4.5-11.0 RBC 4.28 4.23-5.66 HGB [...] GLU,BUN,CREAT,LYTES,CA Speci men Type: PLASMA 06:21 AM [facility] Comment: Tests performed on iOnRoad (405) SN:[id number] Ordering Provid er: ISATU TODD Report Released Date/Time: Dec 11, 2021 07:42 AM Reporting Lab: [facility] [address] [facility] [address] Performing Lab: [facility] [address] [facility] [address] UREA NITROGEN 11 7-25 SODIUM 139 135-145 [...] 2021 07:22 AM Reporting Lab: [facility] [address] [facility] [address] Performing Lab: [facility] [address] [facility] [address] WBC 5.5 4.5-11.0 RBC 4.37 4.23-5.66 HGB [...] 0.00 0-0 Dec 12, 2021 06:00 AM [facility] MAGNESIUM Sp ecimen Type: PLASMA Comment: Testin g Performed on iOnRoad (405) SN:[id number] Ordering Provid er: ISATU TODD Report Released Date/Time: Dec 12, 2021 08:24 AM Reporting Lab: [place] [facility] [address] [facility] [address] Performing Lab: [employer] [place] [facility] [address] [facility] [address] MAGNESIUM 1.8 1.6-2.6 Dec 12, 2021 06:00 AM [employer] [facility] PHOSPHORUS Sp ecimen Type: PLASMA Comment: Testin g Performed on iOnRoad (405) SN:[id number] Ordering Provid er: ISATU TODD Report Released Date/Time: Dec 12, 2021 08:24 AM Reporting Lab: [place] [employer] [facility] [address] [facility] [address] Performing Lab: [place] [employer] [facility] [address] [facility] [address] PHOSPHORUS 3.1 2.5-5.0 Dec 11, 2021 06:15 AM [employer] [place] [facility]minutes[facility] ELECTROLYTES Sp ecimen Type: PLASMA Comment: Tests performed on iOnRoad (405) SN:[id number] Ordering Provid er: ISATU TODD Report Released Date/Time: Dec 10, 2021 07:22 AM Reporting Lab: [place] [employer] [facility] [address] [facility] [address] Performing Lab: [place] [employer] [facility] [address] [facility] [address] SODIUM 137 135-145 POTASSIUM 4.3 3.5-5.0 CHLORIDE 108 100-110 CARBON DIOXIDE 20 20-30 ANION GAP 9 4-16 Dec 11, 2021 06:15 AM [place] [employer] [facility] CBC PROFILE Sp ecimen Type: BLOOD Comment: Result s checked Ordering Provid er: ISATU TODD Report Released Date/Time: Dec 10, 2021 07:22 AM Reporting Lab: [place] [employer] [facility] [address] [facility] [address] Performing Lab: [place] OMEGAT [facility] [address] [facility] [address] WBC 5.8 4.5-11.0 RBC 4.37 4.23-5.66 HGB [...] Dec 11, 2021 06:00 AM [facility] PHOSPHORUS Sp ecimen Type: PLASMA Comment: Tests performed on iOnRoad (306) SN:[id number] Results checked Ordering Provid er: ISATU TODD Report Released Date/Time: Dec 11, 2021 07:44 AM Reporting Lab: [place] [facility] [address] [facility] [address] Performing Lab: [place] [facility] [facility] [address] [facility] [address] PHOSPHORUS 3.0 2.5-5.0 Dec 10, 2021 08:05 AM [place] [facility] MAGNESIUM Sp ecimen Type: PLASMA Comment: [place] [id number] on Dec 10, 2021@08:31 Tests performed on iOnRoad (405) SN:[id number] Ordering Provid er: ISATU TODD Report Released Date/Time: Dec 10, 2021 07:22 AM Reporting Lab: [place] [facility] [address] [place] [facility] [place] [place] [address] Performing Lab: [place] [facility] [address] [place] [facility] [place] [place] [address] MAGNESIUM 1.7 1.6-2.6 Dec 10, 2021 08:05 AM [place] [facility] PHOSPHORUS Sp ecimen Type: PLASMA Comment: [place] [id number] on Dec 10, 2021@08:31 Tests performed on iOnRoad (405) SN:[id number] Ordering Provid er: ISATU TODD Report Released Date/Time: Dec 10, 2021 07:22 AM Reporting Lab: [place] [facility] [address] [place] [facility] [place] [place] [address] Performing Lab: [place] [facility] [address] [place] [facility] [place] [place] [address] PHOSPHORUS 1.8 L 2.5-5.0 Dec 10, 2021 08:05 AM [place] UREA NITROGEN Specimen Type: PLASMA [facility] Comment: [place] [id number] on Dec 10, 2021@08:31 Tests performed on iOnRoad (405) SN:[id number] Ordering Provid er: ISATU TODD Report Released Date/Time: Dec 10, 2021 07:22 AM Reporting Lab: [place] [facility] [address] [place] [facility] [place] [place] [address] Performing Lab: [place] [facility] [address] [place] [facility] [place] [address] UREA NITROGEN 8 7-25 Dec 10, 2021 08:05 AM [place] [facility] CALCIUM Sp ecimen Type: PLASMA Comment: [place] [id number] on Dec 10, 2021@08:31 Tests performed on iOnRoad (405) SN:[id number] Ordering Provid er: ISATU TODD Report Released Date/Time: Dec 10, 2021 07:22 AM Reporting Lab: [place] [facility] [address] [facility] [address] Performing Lab: [place] [facility] [address] [facility] [address] CALCIUM 8.3 L 8.5-10.5 Dec 10, 2021 08:05 AM [place] [facility] GLUCOSE Sp ecimen Type: PLASMA Comment: [place] [id number] on Dec 10, 2021@08:31 Tests performed on Pham Exam18 (405) SN:[id number] Ordering Provid er: ISATU TODD Report Released Date/Time: Dec 10, 2021 07:22 AM Reporting Lab: [place] [facility] [address] [facility] [address] Performing Lab: [place] [facility] [address] [facility] [address] GLUCOSE 144 H 65-100 Dec 10, 2021 08:05 [place] CREATININE WITH eGFR Specime n Type: PLASMA AM [facility] PANEL Comment: [place] [id number] on Dec 10, 2021@08:31 Tests performed on iOnRoad (405) SN:[id number] Ordering Provid er: ISATU TODD Report Released Date/Time: Dec 10, 2021 07:22 AM Reporting Lab: [place] [facility] [address] [facility] [address] Performing Lab: [place] [facility] [address] [facility] [address] CREATININE 0.78 0.5-1.5 eGFR(CKD-EPI 2020) >90.0 >60 Dec 10, 2021 08:05 AM [place] [facility] ELECTROLYTES Sp ecimen Type: PLASMA Comment: [place] [id number] on Dec 10, 2021@08:31 Tests performed on Pham Exam18 (405) SN:[id number] Ordering Provid er: ISATU TODD Report Released Date/Time: Dec 10, 2021 07:22 AM Reporting Lab: [place] [facility] [address] [facility] [address] Performing Lab: [place] [facility] [address] [facility] [address] SODIUM 139 135-145 POTASSIUM 3.7 3.5-5.0 CHLORIDE 107 100-110 CARBON DIOXIDE 24 20-30 ANION GAP 8 4-16 Dec 10, 2021 08:05 AM [facility] CBC PROFILE Sp ecimen Type: BLOOD No comment enter ed. Ordering Provid er: ISATU TODD Report Released Date/Time: Dec 10, 2021 07:22 AM Reporting Lab: [place] [facility] [address] [facility] [address] Performing Lab: [place] OMEGAT [facility] [address] [facility] [address] WBC 7.0 4.5-11.0 RBC 4.54 4.23-5.66 HGB [...] Dec 09, 2021 06:46 AM [facility] MAGNESIUM Sp ecimen Type: PLASMA Comment: Tests performed on iOnRoad (347) SN:[id number] Ordering Provid er: ISATU TODD Report Released Date/Time: Dec 08, 2021 10:23 AM Reporting Lab: [facility] [address] [facility] [address] Performing Lab: [facility] [address] [facility] [address] MAGNESIUM 1.6 1.6-2.6 Dec 09, 2021 [facility] P4 GLU,BUN,CREAT,LYTES,CA Speci men Type: PLASMA 06:46 AM [facility] Comment: Tests performed on iOnRoad (405) SN:[id number] Ordering Provid er: ISATU TODD Report Released Date/Time: Dec 08, 2021 05:00 PM Reporting Lab: [facility] [address] [facility] [address] Performing Lab: [facility] [address] [facility] [address] UREA NITROGEN 6 L 7-25 SODIUM 134 [...] PM Reporting Lab: [facility] [address] [facility] [address] Performing Lab: [facility] [address] [facility] [address] WBC 7.1 4.5-11.0 RBC 4.40 4.23-5.66 HGB [...] 0.00 0-0 Dec 08, 2021 06:39 AM [employer] T [facility] MAGNESIUM Sp ecimen Type: PLASMA Comment: Testin g Performed on iOnRoad (405) SN:[id number] Ordering Provid er: ISATU TODD Report Released Date/Time: Dec 07, 2021 10:32 AM Reporting Lab: [facility] [address] [facility] [address] Performing Lab: [facility] [address] [facility] [address] MAGNESIUM 1.5 L 1.6-2.6 Dec 08, 2021 [place] [employer] [facility] P4 GLU,BUN,CREAT,LYTES,CA Speci men Type: PLASMA 06:39 AM [facility] Comment: Testin g Performed on iOnRoad (405) SN:[id number] Ordering Provid er: ISATU TODD Report Released Date/Time: Dec 07, 2021 10:32 AM Reporting Lab: [employer] T [facility] [address] [facility] [address] Performing Lab: [facility] [address] [facility] [address] UREA NITROGEN 6 L 7-25 SODIUM 136 135-145 POTASSIUM 3.3 L 3.5-5.0 CHLORIDE 104 100-110 CARBON DIOXIDE 22 20-30 ANION GAP 10 4-16 GLUCOSE 133 H 65-100 CREATININE 0.76 0.5-1.5 CALCIUM 8.4 L 8.5-10.5 eGFR(CKD-EPI 2020) >90.0 >60 Dec 08, 2021 06:39 AM [place] [employer] T [facility] CBC PROFILE Sp ecimen Type: BLOOD No comment enter ed. Ordering Provid er: ISATU TODD Report Released Date/Time: Dec 07, 2021 10:32 AM Reporting Lab: [facility] [address] [facility] [address] Performing Lab: [facility] [address] [facility] [address] WBC 8.4 4.5-11.0 RBC 4.75 4.23-5.66 HGB [...] GLU,BUN,CREAT,LYTES,CA Speci men Type: PLASMA 06:42 AM [facility] Comment: Tests performed on iOnRoad (405 SN:[id number] Ordering Provid er: PORFIRIO WALTERS Report Released Date/Time: Dec 06, 2021 06:57 PM Reporting Lab: [facility] [address] [facility] [address] Performing Lab: [facility] [address] [facility] [address] UREA NITROGEN 9 7-25 SODIUM 135 135-145 POTASSIUM 3.5 3.5-5.0 CHLORIDE 103 100-110 CARBON DIOXIDE 22 20-30 ANION GAP 10 4-16 GLUCOSE 92 65-100 CREATININE 0.73 0.5-1.5 CALCIUM 8.0 L 8.5-10.5 eGFR(CKD-EPI 2020) >90.0 >60 Dec 07, 2021 06:42 [place] LIVER PROFILE Specimen Typ e: PLASMA AM VAOC Comment: Tests performed on [employer] Software Qa Manager (405) SN:[id number] Ordering Provid er: PORFIRIO WALTERS Report Released Date/Time: Dec 06, 2021 06:57 PM Reporting Lab: [facility] [address] [facility] [address] Performing Lab: [facility] [address] [facility] [address] PROTEIN, TOTAL 5.7 L 6.0-8.5 ALBUMIN 2.4 L 3.2-5.0 BILIRUBIN, TOTAL 0.4 0.2-1.2 ALKALINE PHOSPHATASE 109 40-150 ALT(SGPT) 10 7-52 AST(SGOT) 15 5-34 FIB-4 SCORE 1.92 <2.67 Dec 07, 2021 06:42 AM [facility] [facility] CBC PROFILE Specimen Type: BLOOD [facility] No comment enter ed. Ordering Provid er: PORFIRIO WALTERS Report Released Date/Time: Dec 06, 2021 06:57 PM Reporting Lab: [facility] [address] [facility] [address] Performing Lab: [facility] [address] [facility] [address] WBC 5.7 4.5-11.0 RBC 4.15 L 4.23-5.66 [...] VAMROC %) AUTOMATED Comment: Tests performed on iOnRoad (405) SN:[id number] Ordering Provid er: ISATU TODD Report Released Date/Time: Dec 07, 2021 10:28 AM Reporting Lab: [place] [facility] [address] [facility] [address] Performing Lab: [place] [facility] [address] [facility] [address] RETICULOCYTES (%) AUTOMATED 1.23 0. 6-2.0 RETICULOCYTES (ABS) AUTOMATED 0.052 0.030-0.090 Dec 06, 2021 09:45 [place] MRSA SURVL NARES Specimen Ty pe: NARES PM [facility] DNA No comment enter ed. Ordering Provid er: ALVARO VARGHESE Report Released Date/Time: Dec 07, 2021 02:20 AM Reporting Lab: [place] [facility] [address] [facility] [address] Performing Lab: [place] [facility] [address] [facility] [address] MRSA SURVL NARES DNA NEGATIVE NEGATIVE Dec 06, 2021 06:00 [place] URINALYSIS W/REFLEX TO Speci men Type: URINE PM [facility] CULTURE No comment enter ed. Ordering Provid er: JELANI SÁNCHEZ Report Released Date/Time: Dec 06, 2021 11:57 AM Reporting Lab: [place] [facility] [address] [facility] [address] Performing Lab: [place] [facility] [address] [facility] [address] URINE COLOR Arlin YELLOW SPECIFIC GRAVITY 1.029 [...] 21, [place]IANT Comment: https://www.cdc.gov/coronavirus/2019-ncov/cases-updates/variant- surveillance/variant-info.html The [employer] SARS CoV 2 Jagex Research Assay-GX is a next-generation sequencing (NGS) assa 2021 [facility] SEQUENCING y that determine s the complete genome sequence of the SARS-CoV-2 virus. The assay contains variant-tolerant primers to broaden and improve the coverage for variant detection and increase the sensitivity 12:00 [facility] PNL(WH) of the panel to enable detection from lower viral titer samples. The assay is run on the [employer] Sequencer, which performs automated library preparation, sequencing, analysis, and reporting. PM The sequence an alysis includes determination of viral phylogenetic lineage by comparison to the reference strain Wuhan-Hu-1, GenBank: [id number]. Sequence determination may not be possible owing [...] and its performance characteristics determined by the [facility] Molecular [facility] Laboratory, which is certified under the Clinical Laboratory Improveme nt Amendments (C MARCO) as qualified to perform high complexity clinical laboratory testing. This test is validated for clinical use at [facility] and should not be regarded as investigational or for research. The FDA does not require this test to go through premarket FDA review, and therefore it has not been cleared or approved by the FDA. This report was reviewed and approved by the on-service pathologist. Ordering Provid er: JELANI SÁNCHEZ Report Released Date/Time: Dec 06, 2021 01:13 PM Reporting Lab: [place] [facility] [address] [facility] [address] Performing Lab: [facility] [address] [facility] [address] SARS-CoV-2 CLADE() 22C (OMICRON) SARS-CoV-2 LINEAGE() BA.2.12.1 Dec 06, 2021 12:00 [facility] COVID-19 AG SCREEN Specimen Type: NASAL CAVITY PM [facility] PANEL BINAX(405) Comment: Testi ng Performed By: Mike Briscoe Ordering Provid er: JELANI SÁNCHEZ Report Released Date/Time: Dec 08, 2021 08:23 AM Reporting Lab: [place] [facility] [address] [facility] [address] Performing Lab: [facility] [address] [facility] [address] COVID-19 AG SCRN(wrj BINAX) POSITIVE HH NE G Dec 06, 2021 12:00 PM [facility] TROPONIN II Sp ecimen Type: PLASMA Comment: Tests performed on [employer] Software Qa Manager (405) SN:[id number] Ordering Provid er: JELANI SÁNCHEZ Report Released Date/Time: Dec 06, 2021 11:57 AM Reporting Lab: [place] [facility] [address] [place] [facility] [place] [address] Performing Lab: [place] [facility] [address] [facility] [address] TROPONIN II 0.03 0.00-0.29 Dec 06, 2021 12:00 PM [facility] BNP(P) Sp ecimen Type: PLASMA Comment: Tests performed on [employer] Software Qa Manager (405) SN:[id number] Ordering Provid er: JELANI SÁNCHEZ Report Released Date/Time: Dec 06, 2021 11:57 AM Reporting Lab: [place] [facility] [address] [facility] [address] Performing Lab: [place] [facility] [address] [facility] [address] BNP(P) 224.8 H 10-100 Dec 06, 2021 [place] P4 GLU,BUN,CREAT,LYTES,CA Speci men Type: PLASMA 12:00 PM [facility] Comment: Testin g Performed on Pham Software Qa Manager (405) SN:[id number] Ordering Provid er: JELANI SÁNCHEZ Report Released Date/Time: Dec 06, 2021 11:57 AM Reporting Lab: [facility] [address] [facility] [address] Performing Lab: [facility] [address] [facility] [address] UREA NITROGEN 13 7-25 SODIUM 138 135-145 POTASSIUM 3.8 3.5-5.0 CHLORIDE 103 100-110 CARBON DIOXIDE 23 20-30 ANION GAP 12 4-16 GLUCOSE 105 H 65-100 CREATININE 0.90 0.5-1.5 CALCIUM 8.7 8.5-10.5 eGFR(CKD-EPI 2020) >90.0 >60 Dec 06, 2021 12:00 PM [facility] LIVER PROFILE Sp ecimen Type: PLASMA Comment: Testin g Performed on [employer] Software Qa Manager (405) SN:[id number] Ordering Provid er: JELANI SÁNCHEZ Report Released Date/Time: Dec 06, 2021 11:57 AM Reporting Lab: [facility] [address] [facility] [address] Performing Lab: [facility] [address] [facility] [address] PROTEIN, TOTAL 6.6 6.0-8.5 ALBUMIN 2.8 L 3.2-5.0 BILIRUBIN, TOTAL 0.6 0.2-1.2 ALKALINE PHOSPHATASE 134 40-150 ALT(SGPT) 13 7-52 AST(SGOT) 18 5-34 FIB-4 SCORE 1.94 <2.67 Dec 06, 2021 [facility] COVID-19+FLU/RSV DIAGNOSTIC Spe cimen Type: NASOPHARYNX 12:00 PM [facility] PANEL(405) Comment: Tests performed on [employer] Genexpert (405) Critical results called to and read back by: ALESHIA WILKINSON RN 12/06/21 @ 1312 Ordering Provid er: JELANI SÁNCHEZ Report Released Date/Time: Dec 06, 2021 11:57 AM Reporting Lab: [facility] [address] [facility] [address] Performing Lab: [facility] [address] [facility] [address] FLU A(PCR) NEGATIVE NEGATIVE FLU B(PCR) NEGATIVE NEGATIVE RSV(PCR) NEGATIVE NEGATIVE COVID-19([id number]) DETECTED HH NO T DETECTED Dec 06, 2021 12:00 PM [facility] CBC PROFILE Sp ecimen Type: BLOOD No comment enter ed. Ordering Provid er: JELANI SÁNCHEZ Report Released Date/Time: Dec 06, 2021 11:57 AM Reporting Lab: [facility] [address] [facility] [address] Performing Lab: [facility] [address] [facility] [facility] [id number] WBC 7.2 4.5-11.0 RBC 4.86 4.23-5.66 HGB [...] 99 136/67 18 /min 98 % 0 [place] 2021 11:35 /min mm[Hg] [facility] AM [facility] Nov 30, 0 [place] 2021 08:00 [facility] AM [facility] Dec 15, 96.9 F 93 134/71 18 /min 97 % 0 [place] 2021 05:01 /min mm[Hg] [facility] AM [facility] Social History: Smoking Status (Most [...] took place. Date/Time Smoking Status/Tobacco Use Comment [facility] Apr 01, 2020 01:16 PM QUIT TOBACCO USE 1-7 YEARS AGO [facility] Mar 24, 2020 03:00 PM QUIT TOBACCO USE 1-7 YEARS AGO [facility] Feb 21, 2019 04:11 PM QUIT TOBACCO USE 1-7 YEARS AGO [facility] Feb 20, 2019 03:38 PM QUIT TOBACCO USE 1-7 YEARS AGO [facility] Feb 03, 2019 09:50 AM QUIT TOBACCO USE 1-7 YEARS AGO [facility] May 25, 2016 11:53 PM QUIT TOBACCO USE IN PAST YEAR [facility] May 23, 2016 06:57 PM QUIT [...] PAST YEAR [facility] May 01, 2016 11:19 AM QUIT TOBACCO USE IN PAST YEAR CAREY DOYLE [facility] Mar 16, 2016 12:50 PM V1-PT DECLINES REF TO TOBACCO CAREY DOYLE [facility] CESS PRGM Mar 16, 2016 12:50 PM V1-PT THINKING ABOUT QUIT CAREY DOYLE [facility] TOBACCO USE Aug 12, 2015 08:48 AM CURRENT SMOKER CAREY Yates [facility] Radiology Reports: +/- 30 days [...] PM MRI ABDOMEN W/WO CONTRAST: MARYELLEN LONG [facility] LUCAS MEEK N [id number] -1950 [facility] Exm Date: DEC 13, 2021@12:57 Req Phys: ISATU TODD Loc: OP Unknown/0 12-15-2021@13:20 Img Loc: MRI IMAGING (OOS) Service: [facility]ICINE (Case [id number] COMPLETE) MRI ABDOMEN W/WO CONTRAST (M RI Detailed) CPT:20722 Reason for Study: further characterization of a [...] new lyphadenopathy REQUESTING MD: Isatu Todd PAGER: [phone] PHONE: [phone] Weight: 232.2 lb [105.32 kg] (12/12/2021 05:00) [...] will need to arrange for a local bulk driver to take him/her home after the [...] 15, 2021 Date Verified: DEC 15, 2021 Stretching Press Operator E-Sig:/EMELY/MARYELLEN LONG Report: MRI ABDOMEN W/WO CONTRAST [...] MALIGNANCY Primary Interpreting Staff: Staff AMELIA THOMAS (Stretching Press Operator) / Dec 10, 2021 09:[address] ABDOMEN & PELVIS: RADIOLOGY,OUTSIDE [facility] JCT LUCAS MEEK N [id number] -1950 M [facility]ICE [facility] Ex Date: DEC 10, 2021@09:30 Req Phys: ISATU TODD E Josseline Loc: 1S MED/12-10@10:57 Img Loc: CT SCAN (OOS) Service: [facility] (Case [id number] COMPLETE) CT ABD & PELVIS WITHOUT CONT RAST (CT Detailed) CPT:96240 Reason for Study: 71 yo male with [...] RADIOLOGY [phone] to speak to the appropriate cable technician. Report Status: Verified Date Reported: DEC 10, 2021 Date Verified: DEC 10, 2021 Stretching Press Operator E-Sig: Report: EXAM: CT abdomen and [...] ph nodes. READING PHYSICIAN: Ramone Munoz D.O. [phone] 12/10/2021 10:55 EDT [facility] National Teleradiology Program [phone] (For Medical Practitioner Use Only ) [address] [facility] [facility] [address], [address] [place] [address] Attention Patients / Veterans: If you have ques tions or concerns about these test results, please contact your o rdering provider or primary care team. Primary Diagnostic Code: SIGNIFICANT ABNORMALIT Y, ATTN NEEDED Primary Interpreting Staff: RADIOLOGY,OUTSIDE SERVICE, Staff Physician / Dec 09, 2021 07:34 AM BASW (MODIFIED): JESSIE CHENEY [facility] ER JCT LUCAS MEEK N [id number] -1950 [facility] Ex Date: DEC 09, 2021@07:34 Req Phys: ISATU TODD Pat Loc: 1S MED/12-09@11:26 Img Loc: XRAY (OOS) Service: [facility] MEDICINE (Case [id number] COMPLETE) BASW (MODIFIED) (EUNICE Alex d) CPT:96861 Contrast Media : Barium Reason for Study: dysphagia ?esophageal spasm Clinical History: Report Status: Verified Date Reported: DEC 09, 2021 Date Verified: DEC 09, 2021 Stretching Press Operator E-Sig:/ES/JESSIE CHENEY Report: BASW (MODIFIED) , [...] REQUIRED Primary Interpreting Staff: JESSIE CHENEY, RADIOLOGIST (Stretching Press Operator) /TLC Dec 06, 2021 12:[address] CHEST (INCLUDES ADRENALS): JESSIE CHENEY LUCAS LARES [id number] -1950 M [facility] Exm Date: DEC 06, 2021@12:59 Req Phys: JELANI SÁNCHEZ Pat Loc: [facility] ED DAYS M 1RD (Req'g Loc) Img Loc: CT SCAN (OOS) Service: Unknown (Case [id number] COMPLETE) CT THORAX W/O CONT (CT Detai led) CPT:18280 Reason for Study: Opacification right chest Clinical History: No contrast allergy BUN: 13 (12/06/21 12:00) CREATI: 0.90 (12/06/21 12:00) eGFR 05/16/21 09:43 52 L Weight: 232.6 lb [105.51 kg] (12/06/2021 11:40) BODY MASS INDEX - NO HEIGHTS FOUND Pager number: [phone] STAT orders MUST be called t o RADIOLOGY [phone] to speak to the appropriate cable technician. Indications - Other: Opacification right chest, covid positive, lung cancer histo Report Status: Verified Date Reported: DEC 06, 2021 Date Verified: DEC 06, 2021 Stretching Press Operator E-Sig:/ES/JESSIE CHENEY Report: CT THORAX W/O [...] REQUIRED Primary Interpreting Staff: JESSIE CHENEY, RADIOLOGIST (Stretching Press Operator) Primary Interpreting Resident: PRINCE CHAMPION, Resident /BR Dec 06, 2021 11:58 AM CHEST SINGLE VIEW: JESSIE CHENEYLUCAS N [id number] -1950 M [facility] Exm Date: DEC 06, 2021@11:58 Req Phys: JELANI SÁNCHEZ Pat Loc: [facility] ED DAYS M 1RD (Req'g Loc) Img Loc: XRAY (OOS) Service: Unknown (Case [id number] COMPLETE) CHEST SINGLE VIEW (RAD Detai led) CPT:52157 Proc Modifiers : PORTABLE EXAM Reason for Study: SOB, home covid test positive Clinical History: Report Status: Verified Date Reported: DEC 06, 2021 Date Verified: DEC 06, 2021 Stretching Press Operator E-Sig:/ES/JESSIE CHENEY Report: Exam type: Chest [...] REQUIRED Primary Interpreting Staff: JESSIE CHENEY, RADIOLOGIST (Stretching Press Operator) /TLC Pathology Reports: +/- 30 days [...] [place] LOCAL TITLE: LR SURGICAL PATHOLOGY REPORT [facility] STANDARD TITLE: PATHOLOGY REPORT DATE OF NOTE: JAN 03, 2022@10:28:01 ENTRY DATE: JAN 03, 2022@10:28:01 AUTHOR: NIURKA MILLER EXP COSIGNER: URGENCY: STATUS: COMPLETED $APHDR Reporting Lab: [facility] [CLIA# [id number]] [address] [place] [address] - - - - - - [...] automatically d ocumented from SURGERY package case #[id number] Field (#32) PRINCIPAL PRE-OP DIAGNOSIS, (#.72) OTHER [...] automatically d ocumented from SURGERY package case #[id number] Field (#34) PRINCIPAL POST-OP DIAG, (#.74) OTHER [...] Label: Lucas Meek Paperwork: Lucas Meek Cassette: [id number];..;KALYANI;.;405;[id number] Specimen is labeled: ES bx Received in formalin are several pieces of pale boyd and brown tissue, 1.2 x 0.7 cm in aggregate. Submitted entirely in 1 cassette [id number];..;KALYANI;.;405;[id number] SAW 12/15/2021 Microscopic exam: *+* MODIFIED REPORT *+* (Last modified: JAN 03, 2022@09:30:20 typed by NIURKA WADDELL) DIAGNOSIS: A. 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 Kendell long. TIARA Coombs was notified on 12/21/21. Modified on 01/03/22 to include report from [facility] stating that tumor is NEGATIVE for her2/ matheus amplification. The attending pathologist who signature mansoor ears on this report has reviewed all diagnostic slides and has edited t he gross and/or microscopic portion of this report in rendering the final pathologic diagnosis. [address] [address] CPT: 77251 /emely/ NIURKA Yeung MD Signed Jan 03, 2022@10:28 Performing Laboratory: Surgical Pathology Report Performed By: CAREY MONTOYA [facility] [CLIA# [id number]] [address] [place] [address] $FTR - - - - - [...] - - LUCAS MEEK STANDARD FORM 515 ID:[id number] SEX:M :1950 AGE: 71 LOC: SDM END PCP: Isatu Todd /emely/ NIURKA MILLER Staff Signed: 01/03/2022 10:28 Dec 21, 2021 11:46 AM LR SURGICAL PATHOLOGY REPORT: STEFANY MILLER CAREY DOYLE [place] LOCAL TITLE: LR SURGICAL PATHOLOGY REPORT [facility] STANDARD TITLE: PATHOLOGY REPORT DATE OF NOTE: DEC 21, 2021@11:46:59 ENTRY DATE: DEC 21, 2021@11:46:59 AUTHOR: NIURKA MILLER EXP COSIGNER: URGENCY: STATUS: COMPLETED $APHDR Reporting Lab: CAREY MONTOYA [facility] [CLIA# [id number]] [address] [place] [facility] [address] - - - - - - [...] automatically d ocumented from SURGERY package case #[id number] Field (#32) PRINCIPAL PRE-OP DIAGNOSIS, (#.72) OTHER [...] automatically d ocumented from SURGERY package case #[id number] Field (#34) PRINCIPAL POST-OP DIAG, (#.74) OTHER [...] Label: Lucas Meek Paperwork: Lucas Meek Cassette: [id number];..;KALYANI;.;405;[phone] Specimen is labeled: ES bx Received in formalin are several pieces of pale boyd and brown tissue, 1.2 x 0.7 cm in aggregate. Submitted entirely in 1 cassette [id number];..;KALYANI;.;405;[id number] SAW 12/15/2021 Microscopic exam: DIAGNOSIS: A. 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 Kendell longTIARA Barba was notified on 12/21/21. The attending pathologist who signature mansoor ears on this report has reviewed all diagnostic slides and has edited t he gross and/or microscopic portion of this report in rendering the final pathologic diagnosis. [address] [address] CPT: 08198 /emely/ NIURKA Yeung MD Signed Dec 21, 2021@11:46 Performing Laboratory: Surgical Pathology Report Performed By: [facility] [CLIA# [id number]] [address] [place] [address] $FTR - - - - - [...] - - LUCAS MEEK STANDARD FORM 515 ID:[id number] SEX:M :1950 AGE: 71 LOC: SDM END PCP: Isatu Todd /emely/ NIURKA Yeung MD Signed: 12/21/2021 11:46 Dec 06, 2021 03:30 PM LR [facility] Reporting Lab: [facility] [CLIA# [id number]] [address] [place] [address] Accession [UID]: [id number] [[id number]] Receiv ed: Dec 06, 2021@16:14 Collection sample: BLOOD CUL T BOTTLE(NIRMAL/AERO)Collection date: Dec 06, 2021 15:30 Site/Specimen: BLOOD Provider: JELANI SÁNCHEZ Comment on specimen: LAC Test(s) ordered: BLOOD CULTURE ANAEROBI C....... completed: Dec 12, 2021 06:18 * BACTERIOLOGY FINAL REPORT => Dec 12, 2021 06:1 8 TECH CODE: [id number] Bacteriology Remark(s): NO GROWTH IN 5 DAYS =--=--=--=--=--=--=--=--=--=--=--=--=--= --=--=--=--=--=--=--=--=--=--=--=--=-- Performing Laboratory: Bacteriology Report Performed By: [facility] [CLIA# [id number]] [address] [place] [address] Dec 06, 2021 03:30 PM LR MICROBIOLOGY REPORT: [facility] Reporting Lab: [facility] [CLIA# [id number]] [address] [place] [address] Accession [UID]: [id number] [[id number]] Receiv ed: Dec 06, 2021@16:14 Collection sample: BLOOD CUL T BOTTLE(NIRMAL/AERO)Collection date: Dec 06, 2021 15:30 Site/Specimen: BLOOD Provider: JELANI SÁNCHEZ Comment on specimen: LAC Test(s) ordered: BLOOD CULTURE AEROBIC. ........ completed: Dec 12, 2021 06:17 * BACTERIOLOGY FINAL REPORT => Dec 12, 2021 06:1 7 TECH CODE: [id number] Bacteriology Remark(s): NO GROWTH IN 5 DAYS =--=--=--=--=--=--=--=--=--=--=--=--=--= --=--=--=--=--=--=--=--=--=--=--=--=-- Performing Laboratory: Bacteriology Report Performed By: [facility] [CLIA# [id number]] [address] [place] [address]
--- OUTSIDE RECORDS SUMMARY | 2022-01-19 09:02 | XMS_ITS ---
DAILY HOSPITALIZATION DATA [facility] Encounter Summary Created on:December 10, 2021 Patient:LUCAS MEEK Sex:Male :1950 Author Organization [facility] Address [address] [place] [id number] Support Name Relationship Address Phone YUSRA MEEK Unavailable [address] [place] [address] YUSRA MEEK Unavailable [address] [place] [address] CLAY MOSLEY Unavailable Unavailable SJ SANTACRUZ Unavailable [...] MEDICARE MEDICARE PART Jun 18, PART A [id number] DO KALYANI PATIENT (WNR) (M) A 2016 13A 1 U[place]AS MEDICARE MEDICARE PART Jun 18, PART B [id number] DO KALYANI PATIENT (WNR) (M) B 2016 13A 1 [place] MEDICARE MEDICARE PART Jun 18, PART A [id number] KALYANIDO PATIENT (WNR) (M) A 2017 VH81 2 [place] MEDICARE MEDICARE PART Jun 18, PART B [id number] DO KALYANI PATIENT (WNR) (M) B 2017 VH81 2 [place] UNITED MEDICARE MCR(Jun 18 [id number] Luz MEEK PATIENT HEALTHCARE ADVANTAGE NR) 2021 37 0 [facility] (WNR) Selected Encounter This section includes the information on record at [place] for the Encounter. Date/Time Encounter Type Encounter Description Reason Provider Source Dec 10, 2021 12:53 Inpatient Visit DAILY HOSPITALIZATION DATA PM IHE Encounter Template Text not used by MA [...] AM AMBULATORY - NONE [place] [facility] Jan 06, 2022 02:00 PM [place] [facility] Jan 10, 2022 11:30 AM AMB[facility]ATORY - MEDICINE [facility] Jan 24, 2022 08:00 [place] [facility] Feb 21, 2022 10:00 AM AMBUL[place]ORY - [place] [facility] Mar 21, 2022 10:30 AM AMBULATORY [...] The data comes from all [place] treatment [facility]. Test Date/Time Test Type Test Details Facility Name October 31, 2021 07:37 AM Consult Order [facility]UNITY [facility]-EGD [facility] Cons [facility] November 15, 2021 10:37 AM Consult Order [facility] CARE-PODIATRY Cons [facility] Dec 06, 2021 12:52 PM Pharmacy [...] [place] OUTPATIENT Cons [facility] Log [facility] Jan 15, 2022 10:08 PM Consult Order [facility] CARE-PALLIATIVE CARE Cons [facility] Lab Results: +/- 30 days of [...] Reference Range Comment Dec 15, 2021 [place] P4 GLU,BUN,CREAT,LYTES,CA Speci men Type: PLASMA 06:43 AM [facility] Comment: Tests performed on [email or web address] (405) SN:[id number] Ordering Provid er: ISATU TODD Report Released Date/Time: Dec 11, 2021 07:42 AM Reporting Lab: [facility] [address] [facility] [address] Performing Lab: [facility] [address] [facility] [address] UREA NITROGEN 9 7-25 SODIUM 137 135-145 [...] [facility] [address] [facility] [address] Performing Lab: [facility] [address] [facility] [address] WBC 5.7 4.5-11.0 RBC 4.22 L 4.23-5.66 [...] Specimen Type: ESOPHAGUS 02:59 PM [facility] Comment: ~For T est: CYTOGENETIC FISH([facility] ~FISH HER 2 NUE, FFPE See full report in Pluralsight Image display viewer/tab#LAB-Reference Ordering Provid er: NIURKA MILLER Report Released Date/Time: Dec 21, 2021 12:11 PM Reporting Lab: [facility] [address] [facility] [address] Performing Lab: [place] [facility] CYTOGENETIC FISH([facility] comment Dec 14, 2021 [facility] P4 GLU,BUN,CREAT,LYTES,CA Speci men Type: PLASMA 06:27 AM [facility] Comment: Tests performed on [email or web address] (405) SN:[id number] Ordering Provid er: ISATU TODD Report Released Date/Time: Dec 11, 2021 07:42 AM Reporting Lab: [facility] [address] [facility] [address] Performing Lab: [facility] [address] [facility] [address] UREA NITROGEN 10 7-25 SODIUM 137 135-145 [...] Reporting Lab: [facility] [address] [facility] [address] Performing Lab: [facility] [address] [facility] [address] WBC 6.0 4.5-11.0 RBC 4.29 4.23-5.66 HGB [...] [facility] Comment: Tests performed on [email or web address] (405) SN:[id number] Ordering Provid er: ISATU TODD Report Released Date/Time: Dec 11, 2021 07:42 AM Reporting Lab: [facility] [address] [facility] [address] Performing Lab: [facility] [address] [facility] [address] UREA NITROGEN 12 7-25 SODIUM 136 135-145 [...] Reporting Lab: [facility] [address] [facility] [address] Performing Lab: [facility] [address] [facility] [address] WBC 5.6 4.5-11.0 RBC 4.28 4.23-5.66 HGB [...] [facility] Comment: Tests performed on [email or web address] (405) SN:[id number] Ordering Provid er: ISATU TODD Report Released Date/Time: Dec 11, 2021 07:42 AM Reporting Lab: [facility] [address] [facility] [address] Per[facility]: [facility] [address] [facility] [address] UREA NITROGEN 11 7-25 SODIUM 139 135-145 [...] Dec 10, 2021 07:22 AM Reporting Lab: [facility] [address] [facility] [address] Performing Lab: [facility] [address] [facility] [address] WBC 5.5 4.5-11.0 RBC 4.37 4.23-5.66 HGB [...] 0.00 0-0 Dec 12, 2021 06:00 AM [employer] [facility] MAGNESIUM Sp ecimen Type: PLASMA Comment: Testin g Performed on [email or web address] (405) SN:[id number] Ordering Provid er: ISATU TODD Report Released Date/Time: Dec 12, 2021 08:24 AM Reporting Lab: [facility] [employer] [facility] [address] [facility] [address] Performing Lab: [employer] [place] [employer] [address] [facility] [address] MAGNESIUM 1.8 1.6-2.6 Dec 12, 2021 06:00 AM [employer] PHOSPHORUS Sp ecimen Type: PLASMA Comment: Testin g Performed on [email or web address] (405) SN:[id number] Ordering Provid er: ISATU TODD Report Released Date/Time: Dec 12, 2021 08:24 AM Reporting Lab: [place] [employer] [facility] [address] [facility] [address] Performing Lab: [place] [employer] [address] [facility] [address] PHOSPHORUS 3.1 2.5-5.0 Dec 11, 2021 06:15 AM [employer] [place] [employer] ELECTROLYTES Sp ecimen Type: PLASMA Comment: Tests performed on [email or web address] (405) SN:[id number] Ordering Provid er: ISATU TODD Report Released Date/Time: Dec 10, 2021 07:22 AM Reporting Lab: [place] [employer] [facility] [address] [facility] [address] Performing Lab: [place] [employer] [facility] [address] [facility] [address] SODIUM 137 135-145 POTASSIUM 4.3 3.5-5.0 CHLORIDE 108 100-110 CARBON DIOXIDE 20 20-30 ANION GAP 9 4-16 Dec 11, 2021 06:15 AM [place] [employer] [facility] CBC PROFILE Sp ecimen Type: BLOOD Comment: Result s checked Ordering Provid er: ISATU TODD Report Released Date/Time: Dec 10, 2021 07:22 AM Reporting Lab: [place] [employer] [facility] [address] [facility] [address] Performing Lab: [place] OMEGAT [facility] [address] [facility] [address] WBC 5.8 4.5-11.0 RBC 4.37 4.23-5.66 HGB [...] 0.00 0-0 Dec 11, 2021 06:00 AM [facility] PHOSPHORUS Sp ecimen Type: PLASMA Comment: Tests performed on [email or web address] (759) SN:[id number] Results checked Ordering Provid er: ISATU TODD Report Released Date/Time: Dec 11, 2021 07:44 AM Reporting Lab: [facility] DU[facility] [address] [facility] [address] Performing Lab: [place] OMEGAT [facility] [address] [facility] [address] PHOSPHORUS 3.0 2.5-5.0 Dec 10, 2021 08:05 AM [place] [facility] MAGNESIUM Sp ecimen Type: PLASMA Comment: [place] [id number] on Dec 10, 2021@08:31 Tests performed on [email or web address] (405) SN:[id number] Ordering Provid er: ISATU TODD Report Released Date/Time: Dec 10, 2021 07:22 AM Reporting Lab: [place] [facility] [address] [place] [facility] [place] [address] Performing Lab: [place] [facility] [address] [place] [facility] [place] [address] MAGNESIUM 1.7 1.6-2.6 Dec 10, 2021 08:05 AM [place] UREA NITROGEN Specimen Type: PLASMA [facility] Comment: [place] [id number] on Dec 10, 2021@08:31 Tests performed on [email or web address] (405) SN:[id number] Ordering Provid er: ISATU TODD Report Released Date/Time: Dec 10, 2021 07:22 AM Reporting Lab: [place] [facility] [address] [place] [facility] [place] [address] Performing Lab: [place] [facility] [address] [place] [facility] [place] [address] UREA NITROGEN 8 7-25 Dec 10, 2021 08:05 AM [place] [facility] PHOSPHORUS Sp ecimen Type: PLASMA Comment: [place] [id number] on Dec 10, 2021@08:31 Tests performed on [email or web address] (405) SN:[id number] Ordering Provid er: ISATU TODD Report Released Date/Time: Dec 10, 2021 07:22 AM Reporting Lab: [place] [facility] [address] [place] [facility] [place] [address] Performing Lab: [place] [facility] [address] [place] [facility] [place] [address] PHOSPHORUS 1.8 L 2.5-5.0 Dec 10, 2021 08:05 AM [place] [facility] CALCIUM Sp ecimen Type: PLASMA Comment: [place] [id number] on Dec 10, 2021@08:31 Tests performed on [email or web address] (405) SN:[id number] Ordering Provid er: ISATU TODD Report Released Date/Time: Dec 10, 2021 07:22 AM Reporting Lab: [place] [facility] [address] [facility] [address] Performing Lab: [place] [facility] [address] [facility] [address] CALCIUM 8.3 L 8.5-10.5 Dec 10, 2021 08:05 AM [place] [facility] GLUCOSE Sp ecimen Type: PLASMA Comment: [place] [id number] on Dec 10, 2021@08:31 Tests performed on Pham WeOwe (405) SN:[id number] Ordering Provid er: ISATU TODD Report Released Date/Time: Dec 10, 2021 07:22 AM Reporting Lab: [place] [facility] [address] [facility] [address] Performing Lab: [place] [facility] [address] [facility] [address] GLUCOSE 144 H 65-100 Dec 10, 2021 08:05 AM [place] [facility] ELECTROLYTES Sp ecimen Type: PLASMA Comment: [place] [id number] on Dec 10, 2021@08:31 Tests performed on [email or web address] (405) SN:[id number] Ordering Provid er: ISATU TODD Report Released Date/Time: Dec 10, 2021 07:22 AM Reporting Lab: [place] [facility] [address] [facility] [address] Performing Lab: [place] [facility] [address] [facility] [address] SODIUM 139 135-145 POTASSIUM 3.7 3.5-5.0 CHLORIDE 107 100-110 CARBON DIOXIDE 24 20-30 ANION GAP 8 4-16 Dec 10, 2021 08:05 [place] CREATININE WITH eGFR Specime n Type: PLASMA AM [facility] PANEL Comment: [place] [id number] on Dec 10, 2021@08:31 Tests performed on [email or web address] (405) SN:[id number] Ordering Provid er: ISATU TODD Report Released Date/Time: Dec 10, 2021 07:22 AM Reporting Lab: [place] [facility] [address] [facility] [address] Performing Lab: [place] [facility] [address] [facility] [address] CREATININE 0.78 0.5-1.5 eGFR(CKD-EPI 2020) >90.0 >60 Dec 10, 2021 08:05 AM [facility] CBC PROFILE Sp ecimen Type: BLOOD No comment enter ed. Ordering Provid er: ISATU TODD Report Released Date/Time: Dec 10, 2021 07:22 AM Reporting Lab: [place] OMEGAT [facility] [address] [facility] [address] Performing Lab: [place] [facility] [address] [facility] [address] WBC 7.0 4.5-11.0 RBC 4.54 4.23-5.66 HGB [...] 0.00 0-0 Dec 09, 2021 06:46 AM [facility] MAGNESIUM Sp ecimen Type: PLASMA Comment: Tests performed on [email or web address] (166) SN:[id number] Ordering Provid er: ISATU TODD Report Released Date/Time: Dec 08, 2021 10:23 AM Reporting Lab: [facility] [address] [facility] [address] Per[facility]: [facility] [address] [facility] [address] MAGNESIUM 1.6 1.6-2.6 Dec 09, 2021 [facility] P4 GLU,BUN,CREAT,LYTES,CA Speci men Type: PLASMA 06:46 AM [facility] Comment: Tests performed on [email or web address] (405) SN:[id number] Ordering Provid er: ISATU TODD Report Released Date/Time: Dec 08, 2021 05:00 PM Reporting Lab: [facility] [address] [facility] [address] Performing Lab: [facility] [address] [facility] [address] UREA NITROGEN 6 L 7-25 SODIUM 134 [...] Reporting Lab: [facility] [address] [facility] [address] Performing Lab: [facility] [address] [facility] [address] WBC 7.1 4.5-11.0 RBC 4.40 4.23-5.66 HGB [...] 0.00 0-0 Dec 08, 2021 06:39 AM [place] [employer] T [facility] MAGNESIUM Sp ecimen Type: PLASMA Comment: Testin g Performed on [email or web address] (405) SN:[id number] Ordering Provid er: ISATU TODD Report Released Date/Time: Dec 07, 2021 10:32 AM Reporting Lab: [facility] [address] [facility] [address] Per[facility] Lab: [facility] [address] [facility] [address] MAGNESIUM 1.5 L 1.6-2.6 Dec 08, 2021 [place] [employer] T P4 GLU,BUN,CREAT,LYTES,CA Speci men Type: PLASMA 06:39 AM [facility] Comment: Testin g Performed on [email or web address] (405) SN:[id number] Ordering Provid er: ISATU TODD Report Released Date/Time: Dec 07, 2021 10:32 AM Reporting Lab: [employer] T [facility] [address] [facility] [address] Per[facility]: [facility] [address] [facility] [address] UREA NITROGEN 6 L 7-25 SODIUM 136 135-145 POTASSIUM 3.3 L 3.5-5.0 CHLORIDE 104 100-110 CARBON DIOXIDE 22 20-30 ANION GAP 10 4-16 GLUCOSE 133 H 65-100 CREATININE 0.76 0.5-1.5 CALCIUM 8.4 L 8.5-10.5 eGFR(CKD-EPI 2020) >90.0 >60 Dec 08, 2021 06:39 AM [place] [employer] T [facility] CBC PROFILE Sp ecimen Type: BLOOD No comment enter ed. Ordering Provid er: ISATU TODD Report Released Date/Time: Dec 07, 2021 10:32 AM Reporting Lab: [facility] [address] [facility] [address] Performing Lab: [facility] [address] [facility] [address] WBC 8.4 4.5-11.0 RBC 4.75 4.23-5.66 HGB [...] GLU,BUN,CREAT,LYTES,CA Speci men Type: PLASMA 06:42 AM [facility] Comment: Tests performed on [email or web address] (405 SN:[id number] Ordering Provid er: PORFIRIO WALTERS Report Released Date/Time: Dec 06, 2021 06:57 PM Reporting Lab: [facility] [address] [facility] [address] Performing Lab: [facility] [address] [facility] [address] UREA NITROGEN 9 7-25 SODIUM 135 135-145 POTASSIUM 3.5 3.5-5.0 CHLORIDE 103 100-110 CARBON DIOXIDE 22 20-30 ANION GAP 10 4-16 GLUCOSE 92 65-100 CREATININE 0.73 0.5-1.5 CALCIUM 8.0 L 8.5-10.5 eGFR(CKD-EPI 2020) >90.0 >60 Dec 07, 2021 06:42 [place] LIVER PROFILE Specimen Typ e: PLASMA AM [facility] Comment: Tests performed on [employer] Rebuilder (405) SN:[id number] Ordering Provid er: PORFIRIO WALTERS Report Released Date/Time: Dec 06, 2021 06:57 PM Reporting Lab: [facility] [address] [facility] [address] Per[facility]: [facility] [address] [facility] [address] PROTEIN, TOTAL 5.7 L 6.0-8.5 ALBUMIN 2.4 L 3.2-5.0 BILIRUBIN, TOTAL 0.4 0.2-1.2 ALKALINE PHOSPHATASE 109 40-150 ALT(SGPT) 10 7-52 AST(SGOT) 15 5-34 FIB-4 SCORE 1.92 <2.67 Dec 07, 2021 06:42 AM [facility] CBC PROFILE Specimen Type: BLOOD [facility] No comment enter ed. Ordering Provid er: PORFIRIO WALTERS Report Released Date/Time: Dec 06, 2021 06:57 PM Reporting Lab: [facility] [address] [facility] [address] Performing Lab: [facility] [address] [facility] [address] WBC 5.7 4.5-11.0 RBC 4.15 L 4.23-5.66 [...] [facility] %) AUTOMATED Comment: Tests performed on [email or web address] (405) SN:[id number] Ordering Provid er: ISATU TODD Report Released Date/Time: Dec 07, 2021 10:28 AM Reporting Lab: [place] [facility] [address] [facility] [address] Performing Lab: [place] [facility] [address] [facility] [address] RETICULOCYTES (%) AUTOMATED 1.23 0. 6-2.0 RETICULOCYTES (ABS) AUTOMATED 0.052 0.030-0.090 Dec 06, 2021 09:45 [place] MRSA SURVL NARES Specimen Ty pe: NARES PM [facility] DNA No comment enter ed. Ordering Provid er: ALVARO VARGHESE Report Released Date/Time: Dec 07, 2021 02:20 AM Reporting Lab: [place] [facility] [address] [facility] [address] Performing Lab: [place] [facility] [address] [facility] [address] MRSA SURVL NARES DNA NEGATIVE NEGATIVE Dec 06, 2021 06:00 [place] URINALYSIS W/REFLEX TO Speci men Type: URINE PM [facility] CULTURE No comment enter ed. Ordering Provid er: JELANI SÁNCHEZ Report Released Date/Time: Dec 06, 2021 11:57 AM Reporting Lab: [place] [facility] [address] [facility] [address] Performing Lab: [place] [facility] [address] [facility] [address] URINE COLOR Arlin YELLOW SPECIFIC GRAVITY 1.029 [...] 21, RIVER VARIANT Comment: https://www.cdc.gov/coronavirus/2019-ncov/cases-updates/variant- surveillance/variant-info.html The DeskActive SARS CoV 2 [employer] Assay-GX is a next-generation sequencing (NGS) assa 2021 [facility] SEQUENCING y that determine s the complete genome sequence of the SARS-CoV-2 virus. The assay contains variant-tolerant primers to broaden and improve the coverage for variant detection and increase the sensitivity 12:00 [facility] PNL(WH) of the panel to enable detection from lower viral titer samples. The assay is run on the [employer] Sequencer, which performs automated library preparation, sequencing, analysis, and reporting. PM The sequence an alysis includes determination of viral phylogenetic lineage by comparison to the reference strain Wuhan-Hu-1, GenBank: [id number]. Sequence determination may not be possible owing [...] and its performance characteristics determined by the [facility] Molecular Diagnostics Laboratory, which is certified under the Clinical Laboratory Improveme nt Amendments (C MARCO) as qualified to perform high complexity clinical laboratory testing. This test is validated for clinical use at [facility] and should not be regarded as investigational or for research. The FDA does not require this test to go through premarket FDA review, and therefore it has not been cleared or approved by the FDA. This report was reviewed and approved by the on-service pathologist. Ordering Provid er: JELANI SÁNCHEZ Report Released Date/Time: Dec 06, 2021 01:13 PM Reporting Lab: [facility] [address] [facility] [address] Performing Lab: [facility] [address] [facility] [address] SARS-CoV-2 CLADE() 22C (OMICRON) SARS-CoV-2 LINEAGE() BA.2.12.1 Dec 06, 2021 12:00 [facility] COVID-19 AG SCREEN Specimen Type: NASAL CAVITY PM [facility] PANEL BINAX(405) Comment: Testi ng Performed By: Mike Briscoe Ordering Provid er: JELANI SÁNCHEZ Report Released Date/Time: Dec 08, 2021 08:23 AM Reporting Lab: [facility] [address] [facility] [address] Performing Lab: [facility] [address] [facility] [address] COVID-19 AG SCRN(wrj BINAX) POSITIVE HH NE G Dec 06, 2021 12:00 PM [facility] LIVER PROFILE Sp ecimen Type: PLASMA Comment: Testin g Performed on Pham Tube Rebuilder (405) SN:[id number] Ordering Provid er: JELANI SÁNCHEZ Report Released Date/Time: Dec 06, 2021 11:57 AM Reporting Lab: [facility] [address] [facility] [address] Per[facility]: [facility] [address] [facility] [address] PROTEIN, TOTAL 6.6 6.0-8.5 ALBUMIN 2.8 L 3.2-5.0 BILIRUBIN, TOTAL 0.6 0.2-1.2 ALKALINE PHOSPHATASE 134 40-150 ALT(SGPT) 13 7-52 AST(SGOT) 18 5-34 FIB-4 SCORE 1.94 <2.67 Dec 06, 2021 [facility] P4 GLU,BUN,CREAT,LYTES,CA Speci men Type: PLASMA 12:00 PM [facility] Comment: Testin g Performed on Pham Tube Rebuilder (405) SN:[id number] Ordering Provid er: JELANI SÁNCHEZ Report Released Date/Time: Dec 06, 2021 11:57 AM Reporting Lab: [place] [facility] [address] [facility] [address] Performing Lab: [place] OMEGAT [facility] [address] [facility] [address] UREA NITROGEN 13 7-25 SODIUM 138 135-145 POTASSIUM 3.8 3.5-5.0 CHLORIDE 103 100-110 CARBON DIOXIDE 23 20-30 ANION GAP 12 4-16 GLUCOSE 105 H 65-100 CREATININE 0.90 0.5-1.5 CALCIUM 8.7 8.5-10.5 eGFR(CKD-EPI 2020) >90.0 >60 Dec 06, 2021 12:00 PM [facility] TROPONIN II Sp ecimen Type: PLASMA Comment: Tests performed on Pham Tube Rebuilder (405) SN:[id number] Ordering Provid er: JEALNI SÁNCHEZ Report Released Date/Time: Dec 06, 2021 11:57 AM Reporting Lab: [place] T [facility] [address] [facility] [address] Performing Lab: [facility] [address] [facility] [address] TROPONIN II 0.03 0.00-0.29 Dec 06, 2021 12:00 PM [facility] BNP(P) Sp ecimen Type: PLASMA Comment: Tests performed on Pham Tube Rebuilder (405) SN:[id number] Ordering Provid er: JELANI SÁNCHEZ Report Released Date/Time: Dec 06, 2021 11:57 AM Reporting Lab: [facility] DU[facility]T [facility] [address] [facility] [address] Performing Lab: [facility] [address] [facility] [address] BNP(P) 224.8 H 10-100 Dec 06, 2021 [facility] [place] COVID-19+FLU/RSV DIAGNOSTIC Spe cimen Type: NASOPHARYNX 12:00 PM [facility] PANEL(405) Comment: Tests performed on Public Mobile Genexpert (405) Critical results called to and read back by: ALESHIA WILKINSON RN 12/06/21 @ 1312 Ordering Provid er: JELANI SÁNCHEZ Report Released Date/Time: Dec 06, 2021 11:57 AM Reporting Lab: [facility] [address] [facility] [address] Performing Lab: [place] [facility] [address] [facility] [address] FLU A(PCR) NEGATIVE NEGATIVE FLU B(PCR) NEGATIVE NEGATIVE RSV(PCR) NEGATIVE NEGATIVE COVID-19([id number]) DETECTED HH NO T DETECTED Dec 06, 2021 12:00 PM [facility] Sp ecimen Type: BLOOD No comment enter ed. Ordering Provid er: JELANI SÁNCHEZ Report Released Date/Time: Dec 06, 2021 11:57 AM Reporting Lab: [facility] [address] [facility] [address] Performing Lab: [facility] [address] [facility] [address] WBC 7.2 4.5-11.0 RBC 4.86 4.23-5.66 HGB [...] 94 122/75 18 /min 97 % 0 [place] 2021 09:00 /min mm[Hg] RIVER PM T [facility] Dec 10, 0 WHITE 2021 08:57 RIVER PM T [facility] Dec 10, 0 WHITE 2021 04:17 RIVER PM T [facility] Dec 10, 97.8 F 93 125/74 20 /min 95 % 0 [place] 2021 01:40 /min mm[Hg] RIVER PM T [facility] Dec 10, 231.9 32 [place] 2021 10:22 lb RIVER AM [facility] Social History: Smoking Status (Most current) [...] took place. Date/Time Smoking Status/Tobacco Use Comment [facility] Apr 01, 2020 01:16 PM QUIT [...] [facility] May 01, 2016 03:11 PM QUIT TOBACCO USE IN PAST YEAR [facility] [facility] May 01, 2016 11:19 AM QUIT TOBACCO USE IN PAST YEAR [facility] Mar 16, 2016 12:50 PM V1-PT DECLINES REF TO TOBACCO [facility] CESS PRGM Mar 16, 2016 12:50 PM V1-PT THINKING ABOUT QUIT [facility] TOBACCO USE Aug 12, 2015 08:48 AM CURRENT SMOKER [facility] Radiology Reports: +/- 30 days of [...] W/WO CONTRAST: MARYELLEN LONG LUCAS LARES N [id number] -1950 [facility] Exm Date: DEC 13, 2021@12:57 Req Phys: ISATU TODD Loc: OP Unknown/0 12-15-2021@13:20 Img Loc: MRI IMAGING (OOS) Service: [facility] MEDICINE (Case [id number] COMPLETE) MRI ABDOMEN W/WO CONTRAST (M RI Detailed) CPT:43905 Reason for Study: further characterization of a [...] new lyphadenopathy REQUESTING MD: Isatu Todd PAGER: [phone] PHONE: [phone] Weight: 232.2 lb [105.32 kg] (12/12/2021 05:00) [...] will need to arrange for a bulk driver to take him/her home after [...] 15, 2021 Date Verified: DEC 15, 2021 Bariatric Nurse E-Sig:/ES/MARYELLEN LONG Report: MRI ABDOMEN W/WO CONTRAST [...] MALIGNANCY Primary Interpreting Staff: Staff AMELIA THOMAS (Bariatric Nurse) / Dec 10, 2021 09:[address] ABDOMEN & PELVIS: RADIOLOGY,OUTSIDE [facility] LUCAS MEEK N [id number] -1950 M SERVICE [facility] Exm Date: DEC 10, 2021@09:30 Req Phys: ISATU TODD Loc: MED/12-10@10:57 Img Loc: CT SCAN (OOS) Service: [facility] MEDICINE (Case [id number] COMPLETE) CT ABD & PELVIS WITHOUT CONT RAST (CT Detailed) CPT:10081 Reason for Study: 71 yo male with [...] RADIOLOGY [phone] to speak to the appropriate motion study technician. Report Status: Verified Date Reported: DEC 10, 2021 Date Verified: DEC 10, 2021 Bariatric Nurse E-Sig: Report: EXAM: CT abdomen and pelvis [...] ph nodes. READING PHYSICIAN: Ramone Munoz D.O. [phone] 12/10/2021 10:55 EDT [facility] National Teleradiology Program [phone] (For Medical Practitioner Use Only ) [address], [facility] [address], [address] [place] [address] Attention Patients / Veterans: If you have ques tions or concerns about these test results, please contact [facility] or primary care team. Primary Diagnostic Code: SIGNIFICANT ABNORMALIT Y, ATTN NEEDED Primary Interpreting Staff: RADIOLOGY,OUTSIDE SERVICE, Staff Physician / Dec 09, 2021 07:34 AM BASW (MODIFIED): JESSIE CHENEY [facility] LUCAS MEEK N [id number] -1950 M [facility] Exm Date: DEC 09, 2021@07:34 Req Phys: ISATU TODD Loc: 1S MED/12-09@11:26 Img Loc: XRAY (OOS) Service: [facility] MEDICINE (Case [id number] COMPLETE) BASW (MODIFIED) (RAD Detaile d) CPT:31130 Contrast Media : Barium Reason for Study: dysphagia ?esophageal spasm Clinical History: Report Status: Verified Date Reported: DEC 09, 2021 Date Verified: DEC 09, 2021 Bariatric Nurse E-Sig:/ES/JESSIE CHENEY Report: BASW (MODIFIED) , 12/09/2021 [...] REQUIRED Primary Interpreting Staff: JESSIE CHENEY, RADIOLOGIST (Bariatric Nurse) /TLC Dec 06, 2021 12:[address] CHEST (INCLUDES ADRENALS): JESSIE CHENEY [facility] LUCAS MEEK N [id number] -1950 M [facility] Exm Date: DEC 06, 2021@12:59 Req Phys: GONZALOJELANI Loc: [facility] ED DAYS M 1RD (Req'g Loc) Img Loc: CT SCAN (OOS) Service: Unknown (Case [id number] COMPLETE) CT THORAX W/O CONT (CT Detai led) CPT:13123 Reason for Study: Opacification right chest Clinical History: No contrast allergy BUN: 13 (12/06/21 12:00) CREATI: 0.90 (12/06/21 12:00) eGFR 05/16/21 09:43 52 L Weight: 232.6 lb [105.51 kg] (12/06/2021 11:40) BODY MASS INDEX - NO HEIGHTS FOUND Pager number: [phone] STAT orders MUST be called t o RADIOLOGY [phone] to speak to the appropriate motion study technician. Indications - Other: Opacification right chest, covid positive, lung cancer histo Report Status: Verified Date Reported: DEC 06, 2021 Date Verified: DEC 06, 2021 Bariatric Nurse E-Sig:/ES/JESSIE CHENEY Report: CT THORAX W/O CONT [...] REQUIRED Primary Interpreting Staff: JESSIE CHENEY, RADIOLOGIST (Bariatric Nurse) Primary Interpreting Resident: PRINCE CHAMPION, Resident /BR Dec 06, 2021 11:58 AM CHEST SINGLE VIEW: JESSIE CHENEY DOUGLAS N [id number] -1950 M [facility] Exm Date: DEC 06, 2021@11:58 Req Phys: JELANI SÁNCHEZ Pat Loc: [facility] ED DAYS M 1RD (Req'g Loc) Img Loc: XRAY (OOS) Service: Unknown (Case [id number] COMPLETE) CHEST SINGLE VIEW (RAD Detai led) CPT:41602 Proc Modifiers : PORTABLE EXAM Reason for Study: SOB, home covid test positive Clinical History: Report Status: Verified Date Reported: DEC 06, 2021 Date Verified: DEC 06, 2021 Bariatric Nurse E-Sig:/ES/JESSIE CHENEY Report: Exam type: Chest x-ray [...] REQUIRED Primary Interpreting Staff: JESSIE CHENEY, RADIOLOGIST (Bariatric Nurse) /TLC Pathology Reports: +/- 30 days of [...] Lab: [facility] [CLIA# [id number]] [address] [place] [address] - - - - - - [...] automatically d ocumented from SURGERY package case #[id number] Field (#32) PRINCIPAL PRE-OP DIAGNOSIS, (#.72) OTHER [...] automatically d ocumented from SURGERY package case #[id number] Field (#34) PRINCIPAL POST-OP DIAG, (#.74) OTHER [...] Label: Lucas Meek Paperwork: Lucas Meek Cassette: [id number];..;KALYANI;.;405;[id number] Specimen is labeled: ES bx Received in formalin are several pieces of pale boyd and brown tissue, 1.2 x 0.7 cm in aggregate. Submitted entirely in 1 cassette [id number];..;KALYANI;.;405;[id number] SAW 12/15/2021 Microscopic exam: *+* MODIFIED REPORT [...] in rendering the final pathologic diagnosis. [address] [address] CPT: 12170 /emely/ NIURKA Yeung MD Signed Jan 03, 2022@10:28 Performing Laboratory: Surgical Pathology Report Performed By: [facility] [CLIA# [id number]] [address] [place] [address] $FTR - - - - - [...] - - LUCAS MEEK STANDARD FORM 515 ID:[id number] SEX:M :1950 AGE: 71 LOC: [facility] END PCP: Isatu Todd /emely/ NIURKA MILLER Staff Signed: 01/03/2022 10:28 Dec 21, 2021 11:46 AM LR SURGICAL PATHOLOGY REPORT: STEFANY MILLER [facility] LOCAL TITLE: LR SURGICAL PATHOLOGY REPORT [facility] STANDARD TITLE: PATHOLOGY REPORT DATE OF NOTE: DEC 21, 2021@11:46:59 ENTRY DATE: DEC 21, 2021@11:46:59 AUTHOR: NIURKA MILLER EXP COSIGNER: URGENCY: STATUS: COMPLETED $APHDR Reporting Lab: [facility] [CLIA# [id number]] [address] [place] [address] - - - - - - [...] automatically d ocumented from SURGERY package case #[id number] Field (#32) PRINCIPAL PRE-OP DIAGNOSIS, (#.72) OTHER [...] automatically d ocumented from SURGERY package case #[id number] Field (#34) PRINCIPAL POST-OP DIAG, (#.74) OTHER [...] Label: Lucas Meek Paperwork: Lucas Meek Cassette: [id number];..;KALYANI;.;647;[id number] Specimen is labeled: ES bx Received in formalin are several pieces of pale boyd and brown tissue, 1.2 x 0.7 cm in aggregate. Submitted entirely in 1 cassette [id number];..;KALAYNI;.;405;[id number] SAW 12/15/2021 Microscopic exam: DIAGNOSIS: A. 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 Kendell long. TIARA Coombs was notified on 12/21/21. The attending pathologist who signature mansoor ears on this report has reviewed all diagnostic slides and has edited t he gross and/or microscopic portion of this report in rendering the final pathologic diagnosis. [address] [address] CPT: 68806 /emely/ NIURKA Yeung MD Signed Dec 21, 2021@11:46 Performing Laboratory: Surgical Pathology Report Performed By: [facility] [CLIA# [id number]] [address] [place] [address] $FTR - - - - - [...] - - LUCAS MEEK STANDARD FORM 515 ID:[id number] SEX:M :1950 AGE: 71 LOC: [facility] END PCP: Isatu Todd /charmaine Yeung MD Signed: 12/21/2021 11:46 Dec 06, 2021 03:30 PM LR MICROBIOLOGY REPORT: [facility] Reporting Lab: [facility] [CLIA# [id number]] [address] [place] [address] Accession [UID]: [id number] [[id number]] Receiv ed: Dec 06, 2021@16:14 Collection sample: BLOOD CUL T BOTTLE(NIRMAL/AERO)Collection date: Dec 06, 2021 15:30 Site/Specimen: BLOOD Provider: JELANI SÁNCHEZ Comment on specimen: LAC Test(s) ordered: BLOOD CULTURE ANAEROBI C....... completed: Dec 12, 2021 06:18 * BACTERIOLOGY FINAL REPORT => Dec 12, 2021 06:1 8 TECH CODE: [id number] Bacteriology Remark(s): NO GROWTH IN 5 DAYS =--=--=--=--=--=--=--=--=--=--=--=--=--= --=--=--=--=--=--=--=--=--=--=--=--=-- Performing Laboratory: Bacteriology Report Performed By: [facility] [CLIA# [id number]] [address] [place] [address] Dec 06, 2021 03:30 PM LR MICROBIOLOGY REPORT: [facility] Reporting Lab: [facility] [CLIA# [id number]] [address] [place] [address] Accession [UID]: [id number] [[id number]] Receiv ed: Dec 06, 2021@16:14 Collection sample: BLOOD CUL T BOTTLE(NIRMAL/AERO)Collection date: Dec 06, 2021 15:30 Site/Specimen: BLOOD Provider: JELANI SÁNCHEZ Comment on specimen: LAC Test(s) ordered: BLOOD CULTURE AEROBIC. ........ completed: Dec 12, 2021 06:17 * BACTERIOLOGY FINAL REPORT => Dec 12, 2021 06:1 7 TECH CODE: [id number] Bacteriology Remark(s): NO GROWTH IN 5 DAYS =--=--=--=--=--=--=--=--=--=--=--=--=--= --=--=--=--=--=--=--=--=--=--=--=--=-- Performing Laboratory: Bacteriology Report Performed By: [facility] [CLIA# [id number]] [address] [place] [address]
--- OUTSIDE RECORDS SUMMARY | 2022-01-19 09:03 | XMS_ITS ---
DAILY HOSPITALIZATION DATA [facility] Encounter Summary Created on:December 10, 2021 Patient:LUCAS MEEK Sex:Male :1950 Author Organization [facility] Address [address] [place] [id number] Support Name Relationship Address Phone YUSRA MEEK Unavailable [address] [place] [address] YUSRA MEEK Unavailable [address] [place] [address] CLAY MOSLEY Unavailable Unavailable SJ SANTACRUZ Unavailable [...] MEDICARE MEDICARE PART Jun 18, PART A [id number] DO KALYANI PATIENT (WNR) (M) A 2016 13A 1 [place] MEDICARE MEDICARE PART Jun 18, PART B [id number] DO KALYANI PATIENT (WNR) (M) B 2016 13A 1 [place] MEDICARE MEDICARE PART Jun 18, PART A [id number] KALYANIDO PATIENT (WNR) (M) A 2017 VH81 2 [place] MEDICARE MEDICARE PART Jun 18, PART B [id number] DO KALYANI PATIENT (WNR) (M) B 2017 VH81 2 [place] UNITED MEDICARE MCR(Jun 18 [id number] Luz MEEK PATIENT HEALTHCARE ADVANTAGE NR) 2021 37 0 [facility] (WNR) Selected Encounter This section includes the information on record at OR for the Encounter. Date/Time Encounter Type Encounter Description Reason Provider Source Dec 10, 2021 04:17 Inpatient Visit DAILY HOSPITALIZATION DATA PM IHE Encounter Template Text not used by OR [...] 2022 10:00 AM AMBULATORY - SURGERY [place] [facility] Mar 21, [...] The data comes from all OR treatment [facility]. Test Date/Time Test Type Test Details Facility Name October 31, 2021 07:37 AM Consult Order [facility] Cons Toy Department Manager's Choice November 15, 2021 10:37 AM Consult Order [facility]-PODIAT[facility] Cons Toy Department Manager's Choice Dec 06, 2021 12:52 PM [...] [place] OUTPATIENT Cons [facility] Toy Department Manager's Choice Jan 15, 2022 10:08 PM Consult Order [facility] CARE-PALLIATIVE CARE Cons Toy Department Manager's Choice Lab Results: +/- 30 days [...] Reference Range Comment Dec 15, 2021 [place] P4 GLU,BUN,CREAT,LYTES,CA Speci men Type: PLASMA 06:43 AM [facility] Comment: Tests performed on IPtronics A/S (405) SN:[id number] Ordering Provid er: ISATU TODD Report Released Date/Time: Dec 11, 2021 07:42 AM Reporting Lab: [facility] [address] [facility] [address] Performing Lab: [facility] [address] [facility] [address] UREA NITROGEN 9 7-25 SODIUM 137 135-145 POTASSIUM 3.8 3.5-5.0 CHLORIDE 105 100-110 CARBON DIOXIDE 26 20-30 ANION GAP 6 4-16 GLUCOSE 102 H 65-100 CREATININE 0.64 0.5-1.5 CALCIUM 8.1 L 8.5-10.5 eGFR(CKD-EPI 2020) >90.0 >60 Dec 15, 2021 06:43 AM [facility] CBC PROFILE Sp ecimen Type: BLOOD No comment enter ed. Ordering Provid er: ISATU TODD Report Released Date/Time: Dec 10, 2021 07:22 AM Reporting Lab: [facility] [address] [facility] [address] Performing Lab: [facility] [address] [facility] [address] WBC 5.7 4.5-11.0 RBC 4.22 L 4.23-5.66 [...] 2 NUE, FFPE See full report in [employer] Image display viewer/tab#LAB-Reference Ordering Provid er: NIURKA MILLER Report Released Date/Time: Dec 21, 2021 12:11 PM Reporting Lab: [facility] [address] [facility] [address] Performing Lab: [facility] CYTOGENETIC FISH([facility]) comment Dec 14, 2021 [facility] P4 GLU,BUN,CREAT,LYTES,CA Speci men Type: PLASMA 06:27 AM [facility] Comment: Tests performed on IPtronics A/S (405) SN:[id number] Ordering Provid er: ISATU TODD Report Released Date/Time: Dec 11, 2021 07:42 AM Reporting Lab: [facility] [address] [facility] [address] Performing Lab: [facility] [address] [facility] [address] UREA NITROGEN 10 7-25 SODIUM 137 135-145 [...] Reporting Lab: [facility] [address] [facility] [address] Performing Lab: [facility] [address] [facility] [address] WBC 6.0 4.5-11.0 RBC 4.29 4.23-5.66 HGB [...] [facility] Comment: Tests performed on IPtronics A/S (405) SN:[id number] Ordering Provid er: ISATU TODD Report Released Date/Time: Dec 11, 2021 07:42 AM Reporting Lab: [facility] [address] [facility] [address] [facility] [address] [facility] [address] UREA NITROGEN 12 7-25 SODIUM 136 135-145 [...] Reporting Lab: [facility] [address] [facility] [address] Performing Lab: [facility] [address] [facility] [address] WBC 5.6 4.5-11.0 RBC 4.28 4.23-5.66 HGB [...] [facility] Comment: Tests performed on IPtronics A/S (405) SN:[id number] Ordering Provid er: ISATU TODD Report Released Date/Time: Dec 11, 2021 07:42 AM Reporting Lab: [facility] [address] [facility] [address] Performing Lab: [facility] [address] [facility] [address] UREA NITROGEN 11 7-25 SODIUM 139 135-145 [...] [facility] [address] [facility] [address] [facility] [address] [facility] [address] WBC 5.5 4.5-11.0 RBC 4.37 4.23-5.66 HGB [...] 0.00 0-0 Dec 12, 2021 06:00 AM [facility]here[facility] MAGNESIUM Sp ecimen Type: PLASMA Comment: Testin g Performed on IPtronics A/S (405) SN:[id number] Ordering Provid er: ISATU TODD Report Released Date/Time: Dec 12, 2021 08:24 AM Reporting Lab: [place] [facility] [address] [facility] [address] Performing Lab: 2,10E+07 [place] [facility] [address] [facility] [address] MAGNESIUM 1.8 1.6-2.6 Dec 12, 2021 06:00 AM [facility]here[facility]CareT [facility] PHOSPHORUS Sp ecimen Type: PLASMA Comment: Testin g Performed on IPtronics A/S (405) SN:[id number] Ordering Provid er: ISATU TODD Report Released Date/Time: Dec 12, 2021 08:24 AM Reporting Lab: [place] [facility] [address] [facility] [address] Performing Lab: [place] [facility] [address] [facility] [address] PHOSPHORUS 3.1 2.5-5.0 Dec 11, 2021 06:15 AM 2,10E+07 [place] [facility] ELECTROLYTES Sp ecimen Type: PLASMA Comment: Tests performed on IPtronics A/S (405) SN:[id number] Ordering Provid er: ISATU TODD Report Released Date/Time: Dec 10, 2021 07:22 AM Reporting Lab: [place] [facility] [address] [facility] [address] Performing Lab: [place] [facility] [address] [facility] [address] SODIUM 137 135-145 POTASSIUM 4.3 3.5-5.0 CHLORIDE 108 100-110 CARBON DIOXIDE 20 20-30 ANION GAP 9 4-16 Dec 11, 2021 06:15 AM WHITE Sand TechnologyT [facility] CBC PROFILE Sp ecimen Type: BLOOD Comment: Result s checked Ordering Provid er: ISATU TODD Report Released Date/Time: Dec 10, 2021 07:22 AM Reporting Lab: [place] OMEGAT [facility] [address] [facility] [address] Performing Lab: [facility] [place] [facility] [facility] [address] [facility] [address] WBC 5.8 4.5-11.0 RBC 4.37 4.23-5.66 HGB [...] ecimen Type: PLASMA Comment: Tests performed on IPtronics A/S (220) SN:[id number] Results checked Ordering Provid er: ISATU TODD Report Released Date/Time: Dec 11, 2021 07:44 AM Reporting Lab: [facility] [address] [facility] [address] Performing Lab: [place] OMEGAT ORMROC [address] [facility] [address] PHOSPHORUS 3.0 2.5-5.0 Dec 10, 2021 08:05 AM [place] [facility] MAGNESIUM Sp ecimen Type: PLASMA Comment: [place] [id number] on Dec 10, 2021@08:31 Tests performed on IPtronics A/S (405) SN:[id number] Ordering Provid er: ISATU TODD Report Released Date/Time: Dec 10, 2021 07:22 AM Reporting Lab: [place] [facility] [address] [place] [facility] [place] [place] [address] Performing Lab: [place] [facility] [address] [place] [facility] [place] [address] MAGNESIUM 1.7 1.6-2.6 Dec 10, 2021 08:05 AM [place] [facility] GLUCOSE Sp ecimen Type: PLASMA Comment: [place] [id number] on Dec 10, 2021@08:31 Tests performed on IPtronics A/S (405) SN:[id number] Ordering Provid er: ISATU TODD Report Released Date/Time: Dec 10, 2021 07:22 AM Reporting Lab: [place] [facility] [address] [place] [facility] [place] [place] [address] Performing Lab: [place] [facility] [address] [place] [facility] [place] [address] GLUCOSE 144 H 65-100 Dec 10, 2021 08:05 AM [place] UREA NITROGEN Specimen Type: PLASMA [facility] Comment: [place] [id number] on Dec 10, 2021@08:31 Tests performed on IPtronics A/S (405) SN:[id number] Ordering Provid er: ISATU TODD Report Released Date/Time: Dec 10, 2021 07:22 AM Reporting Lab: [place] [facility] [address] [place] [facility] [place] [address] Performing Lab: [place] [facility] [address] [place] [facility] [place] [address] UREA NITROGEN 8 7-25 Dec 10, 2021 08:05 AM [place] [facility] ELECTROLYTES Sp ecimen Type: PLASMA Comment: [place] [id number] on Dec 10, 2021@08:31 Tests performed on IPtronics A/S (405) SN:[id number] Ordering Provid er: ISATU TODD Report Released Date/Time: Dec 10, 2021 07:22 AM Reporting Lab: [place] [facility] [address] [place] [facility] [place] [address] Performing Lab: [place] [facility] [address] [facility] [address] SODIUM 139 135-145 POTASSIUM 3.7 3.5-5.0 CHLORIDE 107 100-110 CARBON DIOXIDE 24 20-30 ANION GAP 8 4-16 Dec 10, 2021 08:05 AM [place] [facility] CALCIUM Sp ecimen Type: PLASMA Comment: [place] [id number] on Dec 10, 2021@08:31 Tests performed on [employer]am [employer] (405) SN:[id number] Ordering Provid er: ISATU TODD Report Released Date/Time: Dec 10, 2021 07:22 AM Reporting Lab: [place] [facility] [address] [facility] [address] Performing Lab: [place] [facility] [address] [facility] [address] CALCIUM 8.3 L 8.5-10.5 Dec 10, 2021 08:05 AM [place] [facility] PHOSPHORUS Sp ecimen Type: PLASMA Comment: [place] [id number] on Dec 10, 2021@08:31 Tests performed on IPtronics A/S (405) SN:[id number] Ordering Provid er: ISATU TODD Report Released Date/Time: Dec 10, 2021 07:22 AM Reporting Lab: [place] [facility] [address] [facility] [address] Performing Lab: [place] [facility] [address] [facility] [address] PHOSPHORUS 1.8 L 2.5-5.0 Dec 10, 2021 08:05 [place] CREATININE WITH eGFR Specime n Type: PLASMA AM [facility] PANEL Comment: [place] [id number] on Dec 10, 2021@08:31 Tests performed on IPtronics A/S (405) SN:[id number] Ordering Provid er: ISATU TODD Report Released Date/Time: Dec 10, 2021 07:22 AM Reporting Lab: [place] [facility] [address] [facility] [address] Performing Lab: [place] [facility] [address] [facility] [address] CREATININE 0.78 0.5-1.5 eGFR(CKD-EPI 2020) >90.0 >60 Dec 10, 2021 08:05 AM [facility] CBC PROFILE Sp ecimen Type: BLOOD No comment enter ed. Ordering Provid er: ISATU TODD Report Released Date/Time: Dec 10, 2021 07:22 AM Reporting Lab: [facility] [place] [facility] [address] [facility] [address] Performing Lab: [place] [facility] [facility] [address] [facility] [address] WBC 7.0 4.5-11.0 RBC 4.54 4.23-5.66 HGB [...] 0.00 0-0 Dec 09, 2021 06:46 AM [facility] MAGNESIUM Sp ecimen Type: PLASMA Comment: Tests performed on IPtronics A/S (411) SN:[id number] Ordering Provid er: ISATU TODD Report Released Date/Time: Dec 08, 2021 10:23 AM Reporting Lab: [facility] [address] [facility] [address] Performing Lab: [facility] [address] [facility] [address] MAGNESIUM 1.6 1.6-2.6 Dec 09, 2021 [facility] P4 GLU,BUN,CREAT,LYTES,CA Speci men Type: PLASMA 06:46 AM [facility] Comment: Tests performed on IPtronics A/S (405) SN:[id number] Ordering Provid er: ISATU TODD Report Released Date/Time: Dec 08, 2021 05:00 PM Reporting Lab: [facility] [address] [facility] [address] Performing Lab: [facility] [address] [facility] [address] UREA NITROGEN 6 L 7-25 SODIUM 134 [...] Reporting Lab: [facility] [address] [facility] [address] Performing Lab: [facility] [address] [facility] [address] WBC 7.1 4.5-11.0 RBC 4.40 4.23-5.66 HGB [...] 0.00 0-0 Dec 08, 2021 06:39 AM ECCLES [employer] T [facility] MAGNESIUM Sp ecimen Type: PLASMA Comment: Testin g Performed on IPtronics A/S (405) SN:[id number] Ordering Provid er: ISATU TODD Report Released Date/Time: Dec 07, 2021 10:32 AM Reporting Lab: [facility] [address] [facility] [address] Performing Lab: [facility] [address] [facility] [address] MAGNESIUM 1.5 L 1.6-2.6 Dec 08, 2021 ECCLES [employer] T P4 GLU,BUN,CREAT,LYTES,CA Speci men Type: PLASMA 06:39 AM [facility] Comment: Testin g Performed on IPtronics A/S (405) SN:[id number] Ordering Provid er: ISATU TODD Report Released Date/Time: Dec 07, 2021 10:32 AM Reporting Lab: [place] T [facility] [address] [facility] [address] Performing Lab: [facility] [address] [facility] [address] UREA NITROGEN 6 L 7-25 SODIUM 136 135-145 POTASSIUM 3.3 L 3.5-5.0 CHLORIDE 104 100-110 CARBON DIOXIDE 22 20-30 ANION GAP 10 4-16 GLUCOSE 133 H 65-100 CREATININE 0.76 0.5-1.5 CALCIUM 8.4 L 8.5-10.5 eGFR(CKD-EPI 2020) >90.0 >60 Dec 08, 2021 06:39 AM WHITE [employer] T [facility] CBC PROFILE Sp ecimen Type: BLOOD No comment enter ed. Ordering Provid er: ISATU TODD Report Released Date/Time: Dec 07, 2021 10:32 AM Reporting Lab: [facility] [address] [facility] [address] Performing Lab: [facility] [address] [facility] WBC [...] LIVER PROFILE Specimen Typ e: PLASMA AM [facility] Comment: Tests performed on IPtronics A/S (405 SN:[id number] Ordering Provid er: PORFIRIO WALTERS Report Released Date/Time: Dec 06, 2021 06:57 PM Reporting Lab: [facility] [address] [facility] [address] Performing Lab: [facility] [address] [facility] [address] PROTEIN, TOTAL 5.7 L 6.0-8.5 ALBUMIN 2.4 L 3.2-5.0 BILIRUBIN, TOTAL 0.4 0.2-1.2 ALKALINE PHOSPHATASE 109 40-150 ALT(SGPT) 10 7-52 AST(SGOT) 15 5-34 FIB-4 SCORE 1.92 <2.67 Dec 07, 2021 [facility] P4 GLU,BUN,CREAT,LYTES,CA Speci men Type: PLASMA 06:42 AM [facility] Comment: Tests performed on IPtronics A/S (405) SN:[id number] Ordering Provid er: PORFIRIO WALTERS Report Released Date/Time: Dec 06, 2021 06:57 PM Reporting Lab: [place] [facility] [address] [facility] [address] Performing Lab: [place] [facility] [address] [facility] [address] UREA NITROGEN 9 7-25 SODIUM 135 135-145 POTASSIUM 3.5 3.5-5.0 CHLORIDE 103 100-110 CARBON DIOXIDE 22 20-30 ANION GAP 10 4-16 GLUCOSE 92 65-100 CREATININE 0.73 0.5-1.5 CALCIUM 8.0 L 8.5-10.5 eGFR(CKD-EPI 2020) >90.0 >60 Dec 07, 2021 06:42 AM [place] CBC PROFILE Specimen Type: BLOOD [facility] No comment enter ed. Ordering Provid er: PORFIRIO WALTERS Report Released Date/Time: Dec 06, 2021 06:57 PM Reporting Lab: [place] [facility] [address] [facility] [address] Performing Lab: [facility] [address] [facility] [address] WBC 5.7 4.5-11.0 RBC 4.15 L 4.23-5.66 [...] [facility] %) AUTOMATED Comment: Tests performed on IPtronics A/S (405) SN:[id number] Ordering Provid er: ISATU TODD Report Released Date/Time: Dec 07, 2021 10:28 AM Reporting Lab: [place] [facility] [address] [facility] [address] Performing Lab: [place] [facility] [address] [facility] [address] RETICULOCYTES (%) AUTOMATED 1.23 0. 6-2.0 RETICULOCYTES (ABS) AUTOMATED 0.052 0.030-0.090 Dec 06, 2021 09:45 [place] MRSA SURVL NARES Specimen Ty pe: NARES PM [facility] DNA No comment enter ed. Ordering Provid er: ALVARO VARGHESE Report Released Date/Time: Dec 07, 2021 02:20 AM Reporting Lab: [place] [facility] [address] [facility] [address] Performing Lab: [place] [facility] [address] [facility] [address] MRSA SURVL NARES DNA NEGATIVE NEGATIVE Dec 06, 2021 06:00 [place] URINALYSIS W/REFLEX TO Speci men Type: URINE PM [facility] CULTURE No comment enter ed. Ordering Provid er: JELANI SÁNCHEZ Report Released Date/Time: Dec 06, 2021 11:57 AM Reporting Lab: [place] [facility] [address] [facility] [address] Performing Lab: [place] [facility] [address] [facility] [address] URINE COLOR Arlin YELLOW SPECIFIC GRAVITY 1.029 [...] 21, [place] VARIANT Comment: https://www.cdc.gov/coronavirus/2019-ncov/cases-updates/variant- surveillance/variant-info.html The [employer]Stage SARS CoV 2 WonderHowTo Research Assay-GX is a next-generation sequencing (NGS) assa 2021 [facility] SEQUENCING y that determine s the complete genome sequence of the SARS-CoV-2 virus. The assay contains variant-tolerant primers to broaden and improve the coverage for variant detection and increase the sensitivity 12:00 [facility] PNL(WH) of the panel to enable detection from lower viral titer samples. The assay is run on the e(ye)BRAIN Sequencer, which performs automated library preparation, sequencing, analysis, and reporting. PM The sequence an alysis includes determination of viral phylogenetic lineage by comparison to the reference strain Wuhan-Hu-1, GenBank: [id number]. Sequence determination may not be possible owing [...] [facility] [address] [facility] [address] Performing Lab: [facility] [address] [facility] [address] SARS-CoV-2 CLADE() 22C (OMICRON) SARS-CoV-2 LINEAGE() BA.2.12.1 Dec 06, 2021 12:00 [facility] COVID-19 AG SCREEN Specimen Type: NASAL CAVITY PM [facility] PANEL BINAX(405) Comment: Testi ng Performed By: Mike Briscoe Ordering Provid er: JELANI SÁNCHEZ Report Released Date/Time: Dec 08, 2021 08:23 AM Reporting Lab: [facility] [address] [facility] [address] Performing Lab: [facility] [address] [facility] [address] COVID-19 AG SCRN(wrj BINAX) POSITIVE HH NE G Dec 06, 2021 12:00 PM [facility] LIVER PROFILE Sp ecimen Type: PLASMA Comment: Testin g Performed on Pham Short Order Cook (405) SN:[id number] Ordering Provid er: JELANI SÁNCHEZ Report Released Date/Time: Dec 06, 2021 11:57 AM Reporting Lab: [facility] [address] [facility] [address] Performing Lab: [facility] [address] [facility] [address] PROTEIN, TOTAL 6.6 6.0-8.5 ALBUMIN 2.8 L 3.2-5.0 BILIRUBIN, TOTAL 0.6 0.2-1.2 ALKALINE PHOSPHATASE 134 40-150 ALT(SGPT) 13 7-52 AST(SGOT) 18 5-34 FIB-4 SCORE 1.94 <2.67 Dec 06, 2021 [facility] P4 GLU,BUN,CREAT,LYTES,CA Speci men Type: PLASMA 12:00 PM [facility] Comment: Testin g Performed on Pham Short Order Cook (405) SN:[id number] Ordering Provid er: JELANI SÁNCHEZ Report Released Date/Time: Dec 06, 2021 11:57 AM Reporting Lab: [place] [facility] [address] [facility] [address] Performing Lab: [facility] [place] [facility] [address] [facility] [address] UREA NITROGEN 13 7-25 SODIUM 138 135-145 POTASSIUM 3.8 3.5-5.0 CHLORIDE 103 100-110 CARBON DIOXIDE 23 20-30 ANION GAP 12 4-16 GLUCOSE 105 H 65-100 CREATININE 0.90 0.5-1.5 CALCIUM 8.7 8.5-10.5 eGFR(CKD-EPI 2020) >90.0 >60 Dec 06, 2021 12:00 PM [facility] TROPONIN II Sp ecimen Type: PLASMA Comment: Tests performed on Pham Short Order Cook (405) SN:[id number] Ordering Provid er: JELANI SÁNCHEZ Report Released Date/Time: Dec 06, 2021 11:57 AM Reporting Lab: [facility] [address] [facility] [address] Performing Lab: [facility] [address] [facility] [address] TROPONIN II 0.03 0.00-0.29 Dec 06, 2021 12:00 PM [facility] BNP(P) Sp ecimen Type: PLASMA Comment: Tests performed on Pham Short Order Cook (405) SN:[id number] Ordering Provid er: JELANI SÁNCHEZ Report Released Date/Time: Dec 06, 2021 11:57 AM Reporting Lab: [facility] [address] [facility] [address] Performing Lab: [facility] [address] [facility] [address] BNP(P) 224.8 H 10-100 Dec 06, 2021 [place] COVID-19+FLU/RSV DIAGNOSTIC Spe cimen Type: NASOPHARYNX 12:00 PM [facility] PANEL(405) Comment: Tests performed on [employer] Genexpert (405) Critical results called to and read back by: ALESHIA WILKINSON RN 12/06/21 @ 1312 Ordering Provid er: JELANI SÁNCHEZ Report Released Date/Time: Dec 06, 2021 11:57 AM Reporting Lab: [facility] [address] [facility] [address] Performing Lab: [place] [facility] [address] [facility] [address] FLU A(PCR) NEGATIVE NEGATIVE FLU B(PCR) NEGATIVE NEGATIVE RSV(PCR) NEGATIVE NEGATIVE COVID-19([id number]) DETECTED HH NO T DETECTED Dec 06, 2021 12:[address] [facility] Sp ecimen Type: BLOOD No comment enter ed. Ordering Provid er: JELANI SÁNCHEZ Report Released Date/Time: Dec 06, 2021 11:57 AM Reporting Lab: [facility] [address] [facility] [address] Performing Lab: [facility] [address] [facility] [address] WBC 7.2 4.5-11.0 RBC 4.86 4.23-5.66 HGB [...] 94 122/75 18 /min 97 % 0 ECCLES 2021 09:00 /min mm[Hg] [place] PM T [facility] Dec 10, 0 WHITE 2021 08:57 [place] PM T [facility] Dec 10, 0 WHITE 2021 04:17 [place] PM T [facility] Dec 10, 97.8 F 93 125/74 20 /min 95 % 0 ECCLES 2021 01:40 /min mm[Hg] RIVER PM T [facility] Dec 10, 231.9 32 ECCLES 2021 10:22 lb [place] AM [facility] Social History: Smoking Status (Most [...] TOBACCO USE IN PAST YEAR CAREY DOYLE [facility] May 01, 2016 11:19 AM QUIT TOBACCO USE IN PAST YEAR CAREY DOYLE [facility] Mar 16, 2016 12:50 PM V1-PT DECLINES REF TO TOBACCO CAREY DOYLE [facility] CESS PRGM Mar 16, 2016 12:50 PM V1-PT THINKING ABOUT QUIT CAREY DOYLE [facility] TOBACCO USE Aug 12, 2015 08:48 AM CURRENT SMOKER CAREY Yates [facility] Radiology Reports: +/- 30 days [...] W/WO CONTRAST: MARYELLEN LONG LUCAS LARES N [id number] -1950 [facility] Exm Date: DEC 13, 2021@12:57 Req Phys: ISATU TODD Loc: OP Unknown/0 12-15-2021@13:20 Img Loc: MRI IMAGING (OOS) Service: [facility] MEDICINE (Case [id number] COMPLETE) MRI ABDOMEN W/WO CONTRAST (M RI Detailed) CPT:35000 Reason for Study: further characterization of a [...] new lyphadenopathy REQUESTING MD: Isatu Todd PAGER: [phone] PHONE: [phone] Weight: 232.2 lb [105.32 kg] (12/12/2021 05:00) [...] patient will need to arrange for a jinriksha driver to take him/her home after the [...] 15, 2021 Date Verified: DEC 15, 2021 Menu Planner E-Sig:/ES/MARYELLEN LONG Report: MRI ABDOMEN W/WO [...] MALIGNANCY Primary Interpreting Staff: Staff AMELIA THOMAS (Menu Planner) / Dec 10, 2021 09:[address] ABDOMEN & PELVIS: RADIOLOGY,OUTSIDE [facility] LUCAS MEEK N [id number] -1950 M [facility] Exm Date: DEC 10, 2021@09:30 Req Phys: ISATU TODD Loc: MED/12-10@10:57 Img Loc: CT SCAN (OOS) Service: [facility] MEDICINE (Case [id number] COMPLETE) CT ABD & PELVIS WITHOUT CONT RAST (CT Detailed) CPT:46694 Reason for Study: 71 yo male with [...] [phone] to speak to the appropriate electrical test technician. Report Status: Verified Date Reported: DEC 10, 2021 Date Verified: DEC 10, 2021 Menu Planner E-Sig: Report: EXAM: CT abdomen and [...] ph nodes. READING PHYSICIAN: Ramone Munoz D.O. -[phone] 12/10/2021 10:55 EDT [facility] National Teleradiology Program [phone] (For Medical Practitioner Use Only ) [address] [facility], [facility] [address], [address] [place] [address] Attention Patients / Veterans: If you have ques tions or concerns about these test results, please contact [facility] or primary care team. Primary Diagnostic Code: SIGNIFICANT ABNORMALIT Y, ATTN NEEDED Primary Interpreting Staff: RADIOLOGY,OUTSIDE SERVICE, Staff Physician / Dec 09, 2021 07:34 AM BASW (MODIFIED): JESSIE CHENEY [facility] LUCAS MEEK N [id number] -1950 M [facility] Exm Date: DEC 09, 2021@07:34 Req Phys: ISATU TODD Loc: 1S MED/12-09@11:26 Img Loc: XRAY (OOS) Service: [facility] MEDICINE (Case [id number] COMPLETE) BASW (MODIFIED) (RAD Detaile d) CPT:03753 Contrast Media : Barium Reason for Study: dysphagia ?esophageal spasm Clinical History: Report Status: Verified Date Reported: DEC 09, 2021 Date Verified: DEC 09, 2021 Menu Planner E-Sig:/ES/JESSIE CHENEY Report: BASW (MODIFIED) , [...] REQUIRED Primary Interpreting Staff: JESSIE CHENEY, RADIOLOGIST (Menu Planner) /TLC Dec 06, 2021 12:[address] CHEST (INCLUDES ADRENALS): JESSIE CHENEY [facility] LUCAS MEEK N [id number] -1950 M [facility] Exm Date: DEC 06, 2021@12:59 Req Phys: GONZALOJELANI Loc: [facility] ED DAYS M 1RD (Req'g Loc) Img Loc: CT SCAN (OOS) Service: Unknown (Case [id number] COMPLETE) CT THORAX W/O CONT (CT Detai led) CPT:32192 Reason for Study: Opacification right chest Clinical History: No contrast allergy BUN: 13 (12/06/21 12:00) CREATI: 0.90 (12/06/21 12:00) eGFR 05/16/21 09:43 52 L Weight: 232.6 lb [105.51 kg] (12/06/2021 11:40) BODY MASS INDEX - NO HEIGHTS FOUND Pager number: [phone] STAT orders MUST be called t o RADIOLOGY [phone] to speak to the appropriate electrical test technician. Indications - Other: Opacification right chest, covid positive, lung cancer histo Report Status: Verified Date Reported: DEC 06, 2021 Date Verified: DEC 06, 2021 Menu Planner E-Sig:/ES/JESSIE CHENEY Report: CT THORAX W/O [...] REQUIRED Primary Interpreting Staff: JESSIE CHENEY, RADIOLOGIST (Menu Planner) Primary Interpreting Resident: PRINCE CHAMPION, Resident /BR Dec 06, 2021 11:58 AM CHEST SINGLE VIEW: JESSIE CHENEY DOUGLAS N [id number] -1950 M [facility] Exm Date: DEC 06, 2021@11:58 Req Phys: JELANI SÁNCHEZ Pat Loc: [facility] ED DAYS M 1RD (Req'g Loc) Img Loc: XRAY (OOS) Service: Unknown (Case [id number] COMPLETE) CHEST SINGLE VIEW (RAD Detai led) CPT:28008 Proc Modifiers : PORTABLE EXAM Reason for Study: SOB, home covid test positive Clinical History: Report Status: Verified Date Reported: DEC 06, 2021 Date Verified: DEC 06, 2021 Menu Planner E-Sig:/ES/JESSIE CHENEY Report: Exam type: Chest [...] REQUIRED Primary Interpreting Staff: JESSIE CHENEY, RADIOLOGIST (Menu Planner) /TLC Pathology Reports: +/- 30 days [...] Lab: [facility] [CLIA# [id number]] [address] [place] [address] - - - - - - [...] automatically d ocumented from SURGERY package case #[id number] Field (#32) PRINCIPAL PRE-OP DIAGNOSIS, (#.72) OTHER [...] automatically d ocumented from SURGERY package case #[id number] Field (#34) PRINCIPAL POST-OP DIAG, (#.74) OTHER [...] Label: Lucas Meek Paperwork: Lucas Meek Cassette: [id number];..;KALYANI;.;405;[phone] Specimen is labeled: ES bx Received in formalin are several pieces of pale boyd and brown tissue, 1.2 x 0.7 cm in aggregate. Submitted entirely in 1 cassette [id number];..;KALYANI;.;405;[id number] SAW 12/15/2021 Microscopic exam: *+* MODIFIED REPORT [...] in rendering the final pathologic diagnosis. [address] [address] CPT: 01378 /emely/ NIURKA Yeung MD Signed Jan 03, 2022@10:28 Performing Laboratory: Surgical Pathology Report Performed By: [facility] [CLIA# [id number]] [address] [place] [address] $FTR - - - - - [...] - - LUCAS MEEK STANDARD FORM 515 ID:[id number] SEX:M :1950 AGE: 71 LOC: SDM END [...] COSIGNER: URGENCY: STATUS: COMPLETED $APHDR Reporting Lab: [facility] [CLIA# [id number]] [address] [place] [facility] [place] [address] - - - - - - [...] automatically d ocumented from SURGERY package case #[id number] Field (#32) PRINCIPAL PRE-OP DIAGNOSIS, (#.72) OTHER [...] automatically d ocumented from SURGERY package case #[id number] Field (#34) PRINCIPAL POST-OP DIAG, (#.74) OTHER [...] Label: Lucas Meek Paperwork: Lucas Meek Cassette: [id number];..;KALYANI;.;691;[phone] Specimen is labeled: ES bx Received in formalin are several pieces of pale boyd and brown tissue, 1.2 x 0.7 cm in aggregate. Submitted entirely in 1 cassette [id number];..;KALYANI;.;405;[id number] SAW 12/15/2021 Microscopic exam: DIAGNOSIS: A. 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 Kendell long. TIARA Coombs was notified on 12/21/21. The attending pathologist who signature mansoor ears on this report has reviewed all diagnostic slides and has edited t he gross and/or microscopic portion of this report in rendering the final pathologic diagnosis. [address] [address] CPT: 81373 /emely/ NIURKA Yeung MD Signed Dec 21, 2021@11:46 Performing Laboratory: Surgical Pathology Report Performed By: [facility] [CLIA# [id number]] [address] [place] [address] $FTR - - - - - [...] - - LUCAS MEEK STANDARD FORM 515 ID:[id number] SEX:M :1950 AGE: 71 LOC: [facility] PCP: Isatu Todd /charmaine Yeung MD Signed: 12/21/2021 11:46 Dec 06, 2021 03:30 PM LR MICROBIOLOGY REPORT: [facility] Reporting Lab: [facility] [CLIA# [id number]] [address] [place] [address] Accession [UID]: [id number] [[id number]] Receiv ed: Dec 06, 2021@16:14 Collection sample: BLOOD CUL T BOTTLE(NIRMAL/AERO)Collection date: Dec 06, 2021 15:30 Site/Specimen: BLOOD Provider: JELANI SÁNCHEZ Comment on specimen: LAC Test(s) ordered: BLOOD CULTURE ANAEROBI C....... completed: Dec 12, 2021 06:18 * BACTERIOLOGY FINAL REPORT => Dec 12, 2021 06:1 8 TECH CODE: [id number] Bacteriology Remark(s): NO GROWTH IN 5 DAYS =--=--=--=--=--=--=--=--=--=--=--=--=--= --=--=--=--=--=--=--=--=--=--=--=--=-- Performing Laboratory: Bacteriology Report Performed By: [facility] [CLIA# [id number]] [address] [place] [address] Dec 06, 2021 03:30 PM LR MICROBIOLOGY REPORT: [facility] Reporting Lab: [facility] [CLIA# [id number]] [address] [place] [address] Accession [UID]: [id number] [[id number]] Receiv ed: Dec 06, 2021@16:14 Collection sample: BLOOD CUL T BOTTLE(NIRMAL/AERO)Collection date: Dec 06, 2021 15:30 Site/Specimen: BLOOD Provider: JELANI SÁNCHEZ Comment on specimen: LAC Test(s) ordered: BLOOD CULTURE AEROBIC. ........ completed: Dec 12, 2021 06:17 * BACTERIOLOGY FINAL REPORT => Dec 12, 2021 06:1 7 TECH CODE: [id number] Bacteriology Remark(s): NO GROWTH IN 5 DAYS =--=--=--=--=--=--=--=--=--=--=--=--=--= --=--=--=--=--=--=--=--=--=--=--=--=-- Performing Laboratory: Bacteriology Report Performed By: [facility] [CLIA# [id number]] [address] [place] [address]
--- OUTSIDE RECORDS SUMMARY | 2022-01-19 09:03 | XMS_ITS ---
DAILY HOSPITALIZATION DATA [facility] Encounter Summary Created on:December 10, 2021 Patient:LUCAS MEEK Sex:Male :1950 Author Organization [facility] Address [address] [place] [id number] Support Name Relationship Address Phone YUSRA MEEK Unavailable [address] [place] [address] YUSRA MEEK Unavailable [address] [place] [address] CLAY MOSLEY Unavailable Unavailable SJ SANTACRUZ Unavailable [...] MEDICARE MEDICARE PART Jun 18, PART A [id number] DO KALYANI PATIENT (WNR) (M) A 2016 13A 1 [place] MEDICARE MEDICARE PART Jun 18, PART B [id number] DO KALYANI PATIENT (WNR) (M) B 2016 13A 1 [place] MEDICARE MEDICARE PART Jun 18, PART A [id number] KALYANIDO PATIENT (WNR) (M) A 2017 VH81 2 [place] MEDICARE MEDICARE PART Jun 18, PART B [id number] DO KALYANI PATIENT (WNR) (M) B 2017 VH81 2 [place] UNITED MEDICARE MCR(Jun 18 [id number] Luz MEEK PATIENT HEALTHCARE ADVANTAGE NR) 2021 37 0 [facility] (WNR) Selected Encounter This section includes the information on record at [place] for the Encounter. Date/Time Encounter Type Encounter Description Reason Provider Source Dec 10, 2021 04:47 Inpatient Visit DAILY HOSPITALIZATION DATA PM IHE [...] 2022 10:00 AM AMBULATORY - SURGERY [place] [facility] Mar 21, 2022 10:30 AM AMBULATORY - MEDICINE [facility] Active, Pending, and Scheduled [...] The data comes from all [place] treatment [facility]. Test Date/Time Test Type Test Details Facility Name October 31, 2021 07:37 AM Consult Order COMMUNITY CARE-EGD [facility] Cons [employer] Associate's Choice November 15, 2021 10:37 AM Consult Order [facility] CARE-PODIATRY Cons [place] Associate[facility] Choice Dec 06, 2021 12:52 PM [...] [place] OUTPATIENT Cons [facility] Shoe Stock Associate's Choice Jan 15, 2022 10:08 PM Consult Order [facility] CARE-PALLIATIVE CARE Cons [employer] Associate's Choice Lab Results: +/- 30 days [...] Reference Range Comment Dec 15, 2021 [place] P4 GLU,BUN,CREAT,LYTES,CA Speci men Type: PLASMA 06:43 AM [facility] Comment: Tests performed on [email or web address] (405) SN:[id number] Ordering Provid er: ISATU TODD Report Released Date/Time: Dec 11, 2021 07:42 AM Reporting Lab: [facility] [address] [facility] [address] Performing Lab: [facility] [address] [facility] [address] UREA NITROGEN 9 7-25 SODIUM 137 135-145 POTASSIUM 3.8 3.5-5.0 CHLORIDE 105 100-110 CARBON DIOXIDE 26 20-30 ANION GAP 6 4-16 GLUCOSE 102 H 65-100 CREATININE 0.64 0.5-1.5 CALCIUM 8.1 L 8.5-10.5 eGFR(CKD-EPI 2020) >90.0 >60 Dec 15, 2021 06:43 AM [facility] CBC PROFILE Sp ecimen Type: BLOOD No comment enter ed. Ordering Provid er: ISATU TODD Report Released Date/Time: Dec 10, 2021 07:22 AM Reporting Lab: [facility] [address] [facility] [address] Performing Lab: [facility] [address] [facility] [address] WBC 5.7 4.5-11.0 RBC 4.22 L 4.23-5.66 [...] 2 NUE, FFPE See full report in [facility] Image display viewer/tab#LAB-Reference Ordering Provid er: NIURKA MILLER Report Released Date/Time: Dec 21, 2021 12:11 PM Reporting Lab: [facility] [address] [facility] [address] Performing Lab: [facility] CYTOGENETIC FISH([facility]) comment Dec 14, 2021 [facility] P4 GLU,BUN,CREAT,LYTES,CA Speci men Type: PLASMA 06:27 AM [facility] Comment: Tests performed on [email or web address] (405) SN:[id number] Ordering Provid er: ISATU TODD Report Released Date/Time: Dec 11, 2021 07:42 AM Reporting Lab: [facility] [address] [facility] [address] Performing Lab: [facility] [address] [facility] [address] UREA NITROGEN 10 7-25 SODIUM 137 135-145 [...] Reporting Lab: [facility] [address] [facility] [address] Performing Lab: [facility] [address] [facility] [address] WBC 6.0 4.5-11.0 RBC 4.29 4.23-5.66 HGB [...] [facility] Comment: Tests performed on [email or web address] (405) SN:[id number] Ordering Provid er: ISATU TODD Report Released Date/Time: Dec 11, 2021 07:42 AM Reporting Lab: [facility] [address] [facility] [address] Per[facility] [address] [facility] [address] UREA NITROGEN 12 7-25 SODIUM 136 135-145 [...] Reporting Lab: [facility] [address] [facility] [address] Performing Lab: [facility] [address] [facility] [address] WBC 5.6 4.5-11.0 RBC 4.28 4.23-5.66 HGB [...] [facility] Comment: Tests performed on [email or web address] (405) SN:[id number] Ordering Provid er: ISATU TODD Report Released Date/Time: Dec 11, 2021 07:42 AM Reporting Lab: [facility] [address] [facility] [address] Performing Lab: [facility] [address] [facility] [address] UREA NITROGEN 11 7-25 SODIUM 139 135-145 [...] 07:22 AM Reporting Lab: [facility] [address] [facility] [address] Performing Lab: [facility] [address] [facility] [address] WBC 5.5 4.5-11.0 RBC 4.37 4.23-5.66 HGB [...] 0.00 0-0 Dec 12, 2021 06:00 AM [facility] MAGNESIUM Sp ecimen Type: PLASMA Comment: Testin g Performed on [email or web address] (405) SN:[id number] Ordering Provid er: ISATU TODD Report Released Date/Time: Dec 12, 2021 08:24 AM Reporting Lab: [place] [facility] [address] [facility] [address] Performing Lab: My eStore App [place] [facility] [address] [facility] [address] MAGNESIUM 1.8 1.6-2.6 Dec 12, 2021 06:00 AM [facility] PHOSPHORUS Sp ecimen Type: PLASMA Comment: Testin g Performed on [email or web address] (405) SN:[id number] Ordering Provid er: ISATU TODD Report Released Date/Time: Dec 12, 2021 08:24 AM Reporting Lab: [place] [facility] [address] [facility] [address] Performing Lab: [place] [facility] [address] [facility] [address] PHOSPHORUS 3.1 2.5-5.0 Dec 11, 2021 06:15 AM My e[employer] [place] [facility]T [facility] ELECTROLYTES Sp ecimen Type: PLASMA Comment: Tests performed on [email or web address] (405) SN:[id number] Ordering Provid er: ISATU TODD Report Released Date/Time: Dec 10, 2021 07:22 AM Reporting Lab: [place] [facility] [address] [facility] [address] Performing Lab: [place] [facility] [address] [facility] [address] SODIUM 137 135-145 POTASSIUM 4.3 3.5-5.0 CHLORIDE 108 100-110 CARBON DIOXIDE 20 20-30 ANION GAP 9 4-16 Dec 11, 2021 06:15 AM [place] [facility] CBC PROFILE Sp ecimen Type: BLOOD Comment: Result s checked Ordering Provid er: ISATU TODD Report Released Date/Time: Dec 10, 2021 07:22 AM Reporting Lab: [place] [facility] [address] [facility] [address] Performing Lab: [facility] [place] [facility] [address] [facility] [address] WBC 5.8 4.5-11.0 RBC 4.37 4.23-5.66 HGB [...] ecimen Type: PLASMA Comment: Tests performed on [email or web address] (370) SN:[id number] Results checked Ordering Provid er: ISATU TODD Report Released Date/Time: Dec 11, 2021 07:44 AM Reporting Lab: [facility] [address] [facility] [address] Performing Lab: [place] [facility]MEGAT [facility] [address] [facility] [address] PHOSPHORUS 3.0 2.5-5.0 Dec 10, 2021 08:05 AM [place] [facility] MAGNESIUM Sp ecimen Type: PLASMA Comment: [place] [id number] on Dec 10, 2021@08:31 Tests performed on [email or web address] (405) SN:[id number] Ordering Provid er: ISATU TODD Report Released Date/Time: Dec 10, 2021 07:22 AM Reporting Lab: [place] [facility] [address] [facility] [place] [address] Performing Lab: [place] [facility] [address] [facility] [place] [address] MAGNESIUM 1.7 1.6-2.6 Dec 10, 2021 08:05 AM [place] UREA NITROGEN Specimen Type: PLASMA [facility] Comment: [place] [id number] on Dec 10, 2021@08:31 Tests performed on [email or web address] (405) SN:[id number] Ordering Provid er: ISATU TODD Report Released Date/Time: Dec 10, 2021 07:22 AM Reporting Lab: [place] [facility] [address] [facility] [place] [address] Performing Lab: [place] [facility] [address] [facility] [place] [address] UREA NITROGEN 8 7-25 Dec 10, 2021 08:05 AM [place] [facility] PHOSPHORUS Sp ecimen Type: PLASMA Comment: [place] [id number] on Dec 10, 2021@08:31 Tests performed on [email or web address] (405) SN:[id number] Ordering Provid er: ISATU TODD Report Released Date/Time: Dec 10, 2021 07:22 AM Reporting Lab: [place] [facility] [address] [facility] [place] [address] Performing Lab: [place] [facility] [address] [facility] [place] [address] PHOSPHORUS 1.8 L 2.5-5.0 Dec 10, 2021 08:05 AM [place] [facility] GLUCOSE Sp ecimen Type: PLASMA Comment: [place] [id number] on Dec 10, 2021@08:31 Tests performed on [email or web address] (405) SN:[id number] Ordering Provid er: ISATU TODD Report Released Date/Time: Dec 10, 2021 07:22 AM Reporting Lab: [place] [facility] [address] [facility] [address] Performing Lab: [place] [facility] [address] [facility] [address] GLUCOSE 144 H 65-100 Dec 10, 2021 08:05 AM [place] [facility] ELECTROLYTES Sp ecimen Type: PLASMA Comment: [place] [id number] on Dec 10, 2021@08:31 Tests performed on Pham ApnaPaisa (405) SN:[id number] Ordering Provid er: ISATU TODD Report Released Date/Time: Dec 10, 2021 07:22 AM Reporting Lab: [place] [facility] [address] [facility] [address] Performing Lab: [place] [facility] [address] [facility] [address] SODIUM 139 135-145 POTASSIUM 3.7 3.5-5.0 CHLORIDE 107 100-110 CARBON DIOXIDE 24 20-30 ANION GAP 8 4-16 Dec 10, 2021 08:05 AM [place] [facility] CALCIUM Sp ecimen Type: PLASMA Comment: [place] [id number] on Dec 10, 2021@08:31 Tests performed on Pham ApnaPaisa (405) SN:[id number] Ordering Provid er: ISATU TODD Report Released Date/Time: Dec 10, 2021 07:22 AM Reporting Lab: [place] [facility] [address] [facility] [address] Performing Lab: [place] [facility] [address] [facility] [address] CALCIUM 8.3 L 8.5-10.5 Dec 10, 2021 08:05 [place] CREATININE WITH eGFR Specime n Type: PLASMA AM [facility] PANEL Comment: [place] [id number] on Dec 10, 2021@08:31 Tests performed on [email or web address] (405) SN:[id number] Ordering Provid er: ISATU TODD Report Released Date/Time: Dec 10, 2021 07:22 AM Reporting Lab: [place] [facility] [address] [facility] [address] Performing Lab: [place] [facility] [address] [facility] [address] CREATININE 0.78 0.5-1.5 eGFR(CKD-EPI 2020) >90.0 >60 Dec 10, 2021 08:05 AM [facility] CBC PROFILE Sp ecimen Type: BLOOD No comment enter ed. Ordering Provid er: ISATU TODD Report Released Date/Time: Dec 10, 2021 07:22 AM Reporting Lab: [facility] [facility] [address] [facility] [address] Performing Lab: [place] [facility] [address] [facility] [address] WBC 7.0 4.5-11.0 RBC 4.54 4.23-5.66 HGB [...] 0.00 0-0 Dec 09, 2021 06:46 AM [facility] MAGNESIUM Sp ecimen Type: PLASMA Comment: Tests performed on [email or web address] (920) SN:[id number] Ordering Provid er: ISATU TODD Report Released Date/Time: Dec 08, 2021 10:23 AM Reporting Lab: [facility] [address] [facility] [address] Performing Lab: [facility] [address] [facility] [address] MAGNESIUM 1.6 1.6-2.6 Dec 09, 2021 [facility] P4 GLU,BUN,CREAT,LYTES,CA Speci men Type: PLASMA 06:46 AM [facility] Comment: Tests performed on [email or web address] (405) SN:[id number] Ordering Provid er: ISATU TODD Report Released Date/Time: Dec 08, 2021 05:00 PM Reporting Lab: [facility] [address] [facility] [address] Performing Lab: [facility] [address] [facility] [address] UREA NITROGEN 6 L 7-25 SODIUM 134 [...] Reporting Lab: [facility] [address] [facility] [address] Performing Lab: [facility] [address] [facility] [address] WBC 7.1 4.5-11.0 RBC 4.40 4.23-5.66 HGB [...] 0.00 0-0 Dec 08, 2021 06:39 AM [place] [facility] MAGNESIUM Sp ecimen Type: PLASMA Comment: Testin g Performed on [email or web address] (405) SN:[id number] Ordering Provid er: ISATU TODD Report Released Date/Time: Dec 07, 2021 10:32 AM Reporting Lab: [facility] [address] [facility] [address] Performing Lab: [facility] [address] [facility] [address] MAGNESIUM 1.5 L 1.6-2.6 Dec 08, 2021 [place] [facility] P4 GLU,BUN,CREAT,LYTES,CA Speci men Type: PLASMA 06:39 AM [facility] Comment: Testin g Performed on [email or web address] (405) SN:[id number] Ordering Provid er: ISATU TODD Report Released Date/Time: Dec 07, 2021 10:32 AM Reporting Lab: [facility] T [facility] [address] [facility] [address] Performing Lab: [facility] [address] [facility] [address] UREA NITROGEN 6 L 7-25 SODIUM 136 135-145 POTASSIUM 3.3 L 3.5-5.0 CHLORIDE 104 100-110 CARBON DIOXIDE 22 20-30 ANION GAP 10 4-16 GLUCOSE 133 H 65-100 CREATININE 0.76 0.5-1.5 CALCIUM 8.4 L 8.5-10.5 eGFR(CKD-EPI 2020) >90.0 >60 Dec 08, 2021 06:39 AM [facility] [facility] T [facility] CBC PROFILE Sp ecimen Type: BLOOD No comment enter ed. Ordering Provid er: ISATU TODD Report Released Date/Time: Dec 07, 2021 10:32 AM Reporting Lab: [facility] [address] [facility] [address] Performing Lab: [facility] [address] [facility] [...] LIVER PROFILE Specimen Typ e: PLASMA AM [facility] Comment: Tests performed on [email or web address] (405 SN:[id number] Ordering Provid er: PORFIRIO WALTERS Report Released Date/Time: Dec 06, 2021 06:57 PM Reporting Lab: [facility] [address] [facility] [address] Performing Lab: [facility] [address] [facility] [address] PROTEIN, TOTAL 5.7 L 6.0-8.5 ALBUMIN 2.4 L 3.2-5.0 BILIRUBIN, TOTAL 0.4 0.2-1.2 ALKALINE PHOSPHATASE 109 40-150 ALT(SGPT) 10 7-52 AST(SGOT) 15 5-34 FIB-4 SCORE 1.92 <2.67 Dec 07, 2021 [facility] GLU,BUN,CREAT,LYTES,CA Speci men Type: PLASMA 06:42 AM [facility] Comment: Tests performed on [email or web address] (405) SN:[id number] Ordering Provid er: PORFIRIO WALTERS Report Released Date/Time: Dec 06, 2021 06:57 PM Reporting Lab: [place] [facility] [address] [facility] [address] Performing Lab: [place] [facility] [address] [facility] [address] UREA NITROGEN 9 7-25 SODIUM 135 135-145 POTASSIUM 3.5 3.5-5.0 CHLORIDE 103 100-110 CARBON DIOXIDE 22 20-30 ANION GAP 10 4-16 GLUCOSE 92 65-100 CREATININE 0.73 0.5-1.5 CALCIUM 8.0 L 8.5-10.5 eGFR(CKD-EPI 2020) >90.0 >60 Dec 07, 2021 06:42 AM [place] CBC PROFILE Specimen Type: BLOOD [facility] No comment enter ed. Ordering Provid er: PORFIRIO WALTERS Report Released Date/Time: Dec 06, 2021 06:57 PM Reporting Lab: [place] [facility] [address] [facility] [address] Performing Lab: [facility] [address] [facility] [address] WBC 5.7 4.5-11.0 RBC 4.15 L 4.23-5.66 [...] [facility]AM[facility] %) AUTOMATED Comment: Tests performed on [email or web address] (405) SN:[id number] Ordering Provid er: ISATU TODD Report Released Date/Time: Dec 07, 2021 10:28 AM Reporting Lab: [place] [facility] [address] [facility] [address] Performing Lab: [place] [facility] [address] [facility] [address] RETICULOCYTES (%) AUTOMATED 1.23 0. 6-2.0 RETICULOCYTES (ABS) AUTOMATED 0.052 0.030-0.090 Dec 06, 2021 09:45 [place] MRSA SURVL NARES Specimen Ty pe: NARES PM [facility] DNA No comment enter ed. Ordering Provid er: ALVARO VARGHESE Report Released Date/Time: Dec 07, 2021 02:20 AM Reporting Lab: [place] [facility] [address] [facility] [address] Performing Lab: [place] [facility] [address] [facility] [address] MRSA SURVL NARES DNA NEGATIVE NEGATIVE Dec 06, 2021 06:00 [place] URINALYSIS W/REFLEX TO Speci men Type: URINE PM [facility] CULTURE No comment enter ed. Ordering Provid er: JELANI SÁNCHEZ Report Released Date/Time: Dec 06, 2021 11:57 AM Reporting Lab: [place] [facility] [address] [facility] [address] Performing Lab: [place] [facility] [address] [facility] [address] URINE COLOR Arlin YELLOW SPECIFIC GRAVITY 1.029 [...] 21, [place] Comment: https://www.cdc.gov/coronavirus/2019-ncov/cases-updates/variant- surveillance/variant-info.html The [employer] SARS CoV 2 [employer] Research Assay-GX is a next-generation sequencing (NGS) assa 2021 [facility] SEQUENCING y that determine s the complete genome sequence of the SARS-CoV-2 virus. The assay contains variant-tolerant primers to broaden and improve the coverage for variant detection and increase the sensitivity 12:00 [facility] PNL(WH) of the panel to enable detection from lower viral titer samples. The assay is run on the [employer] Sequencer, which performs automated library preparation, sequencing, analysis, and reporting. PM The sequence an alysis includes determination of viral phylogenetic lineage by comparison to the reference strain Wuhan-Hu-1, GenBank: [id number]. Sequence determination may not be possible owing [...] Lab: [facility] [address] [facility] [address] Performing Lab: [facility] [address] [facility] [address] SARS-CoV-2 CLADE() 22C (OMICRON) SARS-CoV-2 LINEAGE() BA.2.12.1 Dec 06, 2021 12:00 [facility] COVID-19 AG SCREEN Specimen Type: NASAL CAVITY PM [facility] PANEL BINAX(405) Comment: Testi ng Performed By: Mike Briscoe Ordering Provid er: JELANI SÁNCHEZ Report Released Date/Time: Dec 08, 2021 08:23 AM Reporting Lab: [facility] [address] [facility] [address] Performing Lab: [facility] [address] [facility] [address] COVID-19 AG SCRN(wrj BINAX) POSITIVE HH NE G Dec 06, 2021 12:00 PM [facility] TROPONIN II Sp ecimen Type: PLASMA Comment: Tests performed on Pham Hand Cell Tuber (405) SN:[id number] Ordering Provid er: JELANI SÁNCHEZ Report Released Date/Time: Dec 06, 2021 11:57 AM Reporting Lab: [facility] [address] [facility] [place] [address] Performing Lab: [facility] [address] [facility] [address] TROPONIN II 0.03 0.00-0.29 Dec 06, 2021 12:00 PM [facility] LIVER PROFILE Sp ecimen Type: PLASMA Comment: Testin g Performed on Pham Hand Cell Tuber (405) SN:[id number] Ordering Provid er: JELANI SÁNCHEZ Report Released Date/Time: Dec 06, 2021 11:57 AM Reporting Lab: [facility] [address] [facility] [address] Performing Lab: [facility] [address] [facility] [address] PROTEIN, TOTAL 6.6 6.0-8.5 ALBUMIN 2.8 L 3.2-5.0 BILIRUBIN, TOTAL 0.6 0.2-1.2 ALKALINE PHOSPHATASE 134 40-150 ALT(SGPT) 13 7-52 AST(SGOT) 18 5-34 FIB-4 SCORE 1.94 <2.67 Dec 06, 2021 [place] P4 GLU,BUN,CREAT,LYTES,CA Speci men Type: PLASMA 12:00 PM [facility] Comment: Testin g Performed on Pham Hand Cell Tuber (405) SN:[id number] Ordering Provid er: JELANI SÁNCHEZ Report Released Date/Time: Dec 06, 2021 11:57 AM Reporting Lab: [facility] [address] [facility] [address] Performing Lab: [facility] [address] [facility] [address] UREA NITROGEN 13 7-25 SODIUM 138 135-145 POTASSIUM 3.8 3.5-5.0 CHLORIDE 103 100-110 CARBON DIOXIDE 23 20-30 ANION GAP 12 4-16 GLUCOSE 105 H 65-100 CREATININE 0.90 0.5-1.5 CALCIUM 8.7 8.5-10.5 eGFR(CKD-EPI 2020) >90.0 >60 Dec 06, 2021 12:00 PM [facility] B[facility](P[facility] Sp ecimen Type: PLASMA Comment: Tests performed on Pham Hand Cell Tuber (405) SN:[id number] Ordering Provid er: JELANI SÁNCHEZ Report Released Date/Time: Dec 06, 2021 11:57 AM Reporting Lab: [facility] [address] [facility] [address] Performing Lab: [facility] [address] [facility] [address] BNP(P) 224.8 H 10-100 Dec 06, 2021 [place] COVID-19+FLU/RSV DIAGNOSTIC Spe cimen Type: NASOPHARYNX 12:00 PM [facility] PANEL(405) Comment: Tests performed on Avaxia Biologicsxpert (405) Critical results called to and read back by: ALESHIA WILKINSON RN 12/06/21 @ 1312 Ordering Provid er: JELANI SÁNCHEZ Report Released Date/Time: Dec 06, 2021 11:57 AM Reporting Lab: [facility] T [facility] [address] [facility] [address] Performing Lab: [place] [facility] [address] [facility] [address] FLU A(PCR) NEGATIVE NEGATIVE FLU B(PCR) NEGATIVE NEGATIVE RSV(PCR) NEGATIVE NEGATIVE COVID-19([id number]) DETECTED HH NO T DETECTED Dec 06, 2021 12:00 [facility] Sp ecimen Type: BLOOD No comment enter ed. Ordering Provid er: JELANI SÁNCHEZ Report Released Date/Time: Dec 06, 2021 11:57 AM Reporting Lab: [facility] [address] [facility] [address] Performing Lab: [facility] [address] [facility] [address] WBC 7.2 4.5-11.0 RBC 4.86 4.23-5.66 HGB [...] 94 122/75 18 /min 97 % 0 [place] 2021 09:00 /min mm[Hg] [place] PM T [facility] Dec 10, 0 WH[place] 2021 08:57 RIVER PM T [facility] Dec 10, 0 WH[place] 2021 04:17 [place] PM T [facility] Dec 10, 97.8 F 93 125/74 20 /min 95 % 0 [place] 2021 01:40 /min mm[Hg] RIVER PM T [facility] Dec 10, 231.9 32 [place] 2021 10:22 lb RIVER AM [facility] Social History: Smoking Status (Most current) and [...] place. Date/Time Smoking Status/Tobacco Use Comment [facility] Apr 01, 2020 01:16 [...] [facility] May 01, 2016 03:11 PM QUIT TOBACCO USE IN PAST YEAR [facility] DOYLE [facility] May 01, 2016 11:19 AM QUIT TOBACCO USE IN PAST YEAR [facility] DOYLE [facility] Mar 16, 2016 12:50 PM V1-PT DECLINES REF TO TOBACCO [facility] DOYLE [facility] CESS [facility] Mar 16, 2016 12:50 PM V1-PT THINKING ABOUT QUIT [facility] DOYLE [facility] TOBACCO USE Aug 12, 2015 08:48 AM CURRENT SMOKER CAERY Yates [facility] Radiology Reports: +/- 30 days of the [...] W/WO CONTRAST: MARYELLEN LONG LUCAS LARES N [id number] -1950 [facility] Exm Date: DEC 13, 2021@12:57 Req Phys: ISATU TODD Loc: OP Unknown/0 12-15-2021@13:20 Img Loc: MRI IMAGING (OOS) Service: [facility] MEDICINE (Case [id number] COMPLETE) MRI ABDOMEN W/WO CONTRAST (M RI Detailed) CPT:51052 Reason for Study: further characterization of a [...] new lyphadenopathy REQUESTING MD: Isatu Todd PAGER: [phone] PHONE: [phone] Weight: 232.2 lb [105.32 kg] (12/12/2021 05:00) [...] patient will need to arrange for a combine driver to take him/her home after [...] 15, 2021 Date Verified: DEC 15, 2021 Wheel Cutter E-Sig:/ES/MARYELLEN LONG Report: MRI ABDOMEN W/WO CONTRAST [...] MALIGNANCY Primary Interpreting Staff: Staff AMELIA THOMAS (Wheel Cutter) / Dec 10, 2021 09:[address] ABDOMEN & PELVIS: RADIOLOGY,OUTSIDE [facility] [place] LUCAS MEEK N [id number] -1950 M SERVICE [facility] Exm Date: DEC 10, 2021@09:30 Req Phys: ISATU TODD Loc: MED/12-10@10:57 Img Loc: CT SCAN (OOS) Service: [facility] MEDICINE (Case [id number] COMPLETE) CT ABD & PELVIS WITHOUT CONT RAST (CT Detailed) CPT:57760 Reason for Study: 71 yo male with [...] RADIOLOGY [phone] to speak to the appropriate filter changing technician. Report Status: Verified Date Reported: DEC 10, 2021 Date Verified: DEC 10, 2021 Wheel Cutter E-Sig: Report: EXAM: CT abdomen and pelvis [...] ph nodes. READING PHYSICIAN: Ramone Munoz D.O. [phone] 12/10/2021 10:55 EDT [facility] National Teleradiology Program [phone] (For Medical Practitioner Use Only ) [address], [facility] [address] [place] [address] Attention Patients / Veterans: If you have ques tions or concerns about these test results, please contact [facility] or primary care team. Primary Diagnostic Code: SIGNIFICANT ABNORMALIT Y, ATTN NEEDED Primary Interpreting Staff: RADIOLOGY,OUTSIDE SERVICE, Staff Physician / Dec 09, 2021 07:34 AM BASW (MODIFIED): JESSIE CHENEY [facility] LUCAS MEEK N [id number] -1950 M [facility] Exm Date: DEC 09, 2021@07:34 Req Phys: ISATU TODD Loc: 1S MED/12-09@11:26 Img Loc: XRAY (OOS) Service: [facility] MEDICINE (Case [id number] COMPLETE) BASW (MODIFIED) (RAD Detaile d) CPT:65091 Contrast Media : Barium Reason for Study: dysphagia ?esophageal spasm Clinical History: Report Status: Verified Date Reported: DEC 09, 2021 Date Verified: DEC 09, 2021 Wheel Cutter E-Sig:/ES/JESSIE CHENEY Report: BASW (MODIFIED) , 12/09/2021 [...] REQUIRED Primary Interpreting Staff: JESSIE CHENEY, RADIOLOGIST (Wheel Cutter) /TLC Dec 06, 2021 12:[address] CHEST (INCLUDES ADRENALS): JESSIE CHENEY [facility] LUCAS MEEK N [id number] -1950 M [facility] Exm Date: DEC 06, 2021@12:59 Req Phys: GONZALOJELANI Loc: [facility] ED DAYS M 1RD (Req'g Loc) Img Loc: CT SCAN (OOS) Service: Unknown (Case [id number] COMPLETE) CT THORAX W/O CONT (CT Detai led) CPT:64858 Reason for Study: Opacification right chest Clinical History: No contrast allergy BUN: 13 (12/06/21 12:00) CREATI: 0.90 (12/06/21 12:00) eGFR 05/16/21 09:43 52 L Weight: 232.6 lb [105.51 kg] (12/06/2021 11:40) BODY MASS INDEX - NO HEIGHTS FOUND Pager number: [phone] STAT orders MUST be called t o RADIOLOGY x5460 to speak to the appropriate filter changing technician. Indications - Other: Opacification right chest, covid positive, lung cancer histo Report Status: Verified Date Reported: DEC 06, 2021 Date Verified: DEC 06, 2021 Wheel Cutter E-Sig:/ES/JESSIE CHENEY Report: CT THORAX W/O CONT [...] REQUIRED Primary Interpreting Staff: JESSIE CHENEY, RADIOLOGIST (Wheel Cutter) Primary Interpreting Resident: PRINCE CHAMPION, Resident /BR Dec 06, 2021 11:58 AM CHEST SINGLE VIEW: JESSIE CHENEY DOUGLAS N [id number] -1950 M [facility] Exm Date: DEC 06, 2021@11:58 Req Phys: JELANI SÁNCHEZ Pat Loc: [facility] ED DAYS M 1RD (Req'g Loc) Img Loc: XRAY (OOS) Service: Unknown (Case [id number] COMPLETE) CHEST SINGLE VIEW (RAD Detai led) CPT:55722 Proc Modifiers : PORTABLE EXAM Reason for Study: SOB, home covid test positive Clinical History: Report Status: Verified Date Reported: DEC 06, 2021 Date Verified: DEC 06, 2021 Wheel Cutter E-Sig:/ES/JESSIE CHENEY Report: Exam type: Chest x-ray [...] REQUIRED Primary Interpreting Staff: JESSIE CHENEY, RADIOLOGIST (Wheel Cutter) /TLC Pathology Reports: +/- 30 days of [...] MILLER LOCAL TITLE: LR SURGICAL PATHOLOGY REPORT [facility] STANDARD TITLE: PATHOLOGY REPORT DATE OF NOTE: JAN 03, 2022@10:28:01 ENTRY DATE: JAN 03, 2022@10:28:01 AUTHOR: NIURKA MILLER EXP COSIGNER: URGENCY: STATUS: COMPLETED $APHDR Reporting Lab: [facility] [CLIA# [id number]] [address] [place] [address] - - - - - - [...] Submitted by: ISATU TODD Date obtained: Marizol rjoas 2021 14:59 - - - - - [...] automatically d ocumented from SURGERY package case #[id number] Field (#32) PRINCIPAL PRE-OP DIAGNOSIS, (#.72) OTHER [...] automatically d ocumented from SURGERY package case #[id number] Field (#34) PRINCIPAL POST-OP DIAG, (#.74) OTHER [...] Label: Lucas Meek Paperwork: Lucas Meek Cassette: [id number];..;KALYANI;.;405;[id number] Specimen is labeled: ES bx Received in formalin are several pieces of pale boyd and brown tissue, 1.2 x 0.7 cm in aggregate. Submitted entirely in 1 cassette [id number];..;KALYANI;.;405;[id number] SAW 12/15/2021 Microscopic exam: *+* MODIFIED REPORT *+* (Last modified: JAN 03, 2022@09:30:20 typed by NIURKA WADDELL) DIAGNOSIS: A. 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 Kendell long. TIARA Coombs was notified on 12/21/21. Modified on 01/03/22 to include report from [facility] stating that tumor is NEGATIVE for her2/ matheus amplification. The attending pathologist who signature mansoor ears on this report has reviewed all diagnostic slides and has edited t he gross and/or microscopic portion of this report in rendering the final pathologic diagnosis. [address] [address] CPT: 06513 /emely/ NIURKA Yeung MD Signed Jan 03, 2022@10:28 Performing Laboratory: Surgical Pathology Report Performed By: [facility] [CLIA# [id number]] [address] [place] [address] $FTR - - - - - [...] - - LUCAS MEEK STANDARD FORM 515 ID:[id number] SEX:M :1950 AGE: 71 LOC: SDM END PCP: Isatu Todd /emely/ NIURKA MILLER Staff Signed: 01/03/2022 10:28 Dec 21, 2021 11:46 AM LR SURGICAL PATHOLOGY REPORT: STEFANY MILLER [facility] LOCAL TITLE: LR SURGICAL PATHOLOGY REPORT [facility] STANDARD TITLE: PATHOLOGY REPORT DATE OF NOTE: DEC 21, 2021@11:46:59 ENTRY DATE: DEC 21, 2021@11:46:59 AUTHOR: NIURKA MILLER EXP COSIGNER: URGENCY: STATUS: COMPLETED $APHDR Reporting Lab: [facility] [CLIA# [id number]] [address] [place] [facility] [place] [address] - - - - - - [...] automatically d ocumented from SURGERY package case #[id number] Field (#32) PRINCIPAL PRE-OP DIAGNOSIS, (#.72) OTHER [...] automatically d ocumented from SURGERY package case #[id number] Field (#34) PRINCIPAL POST-OP DIAG, (#.74) OTHER [...] Label: Lucas Meek Paperwork: Lucas Meek Cassette: [id number];..;KALYANI;.;057;[id number] Specimen is labeled: ES bx Received in formalin are several pieces of pale boyd and brown tissue, 1.2 x 0.7 cm in aggregate. Submitted entirely in 1 cassette [id number];..;KALYANI;.;405;[id number] SAW 12/15/2021 Microscopic exam: DIAGNOSIS: A. 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 Kendell long. TIARA Coombs was notified on 12/21/21. The attending pathologist who signature mansoor ears on this report has reviewed all diagnostic slides and has edited t he gross and/or microscopic portion of this report in rendering the final pathologic diagnosis. [address] [address] CPT: 58696 /emely/ NIURKA Yeung MD Signed Dec 21, 2021@11:46 Performing Laboratory: Surgical Pathology Report Performed By: [facility] [CLIA# [id number]] [address] [place] [address] $FTR - - - - - [...] - - LUCAS MEEK STANDARD FORM 515 ID:[id number] SEX:M :1950 AGE: 71 LOC: [facility] END PCP: Isatu Todd /charmaine Yeung MD Signed: 12/21/2021 11:46 Dec 06, 2021 03:30 PM LR MICROBIOLOGY REPORT: [facility] Reporting Lab: [facility] [CLIA# [id number]] [address] [place] [address] Accession [UID]: [id number] [[id number]] Receiv ed: Dec 06, 2021@16:14 Collection sample: BLOOD CUL T BOTTLE(NIRMAL/AERO)Collection date: Dec 06, 2021 15:30 Site/Specimen: BLOOD Provider: JELANI SÁNCHEZ Comment on specimen: LAC Test(s) ordered: BLOOD CULTURE ANAEROBI C....... completed: Dec 12, 2021 06:18 * BACTERIOLOGY FINAL REPORT => Dec 12, 2021 06:1 8 TECH CODE: [id number] Bacteriology Remark(s): NO GROWTH IN 5 DAYS =--=--=--=--=--=--=--=--=--=--=--=--=--= --=--=--=--=--=--=--=--=--=--=--=--=-- Performing Laboratory: Bacteriology Report Performed By: [facility] [CLIA# [id number]] [address] [place] [address] Dec 06, 2021 03:30 PM LR MICROBIOLOGY REPORT: [facility] Reporting Lab: [facility] [CLIA# [id number]] [address] [place] [address] Accession [UID]: [id number] [[id number]] Receiv ed: Dec 06, 2021@16:14 Collection sample: BLOOD CUL T BOTTLE(NIRMAL/AERO)Collection date: Dec 06, 2021 15:30 Site/Specimen: BLOOD Provider: JELANI SÁNCHEZ Comment on specimen: LAC Test(s) ordered: BLOOD CULTURE AEROBIC. ........ completed: Dec 12, 2021 06:17 * BACTERIOLOGY FINAL REPORT => Dec 12, 2021 06:1 7 TECH CODE: [id number] Bacteriology Remark(s): NO GROWTH IN 5 DAYS =--=--=--=--=--=--=--=--=--=--=--=--=--= --=--=--=--=--=--=--=--=--=--=--=--=-- Performing Laboratory: Bacteriology Report Performed By: [facility] [CLIA# [id number]] [address] [place] [address]
--- OUTSIDE RECORDS SUMMARY | 2022-01-19 09:04 | XMS_ITS ---
DAILY HOSPITALIZATION DATA CAREY DOYLE [facility] Encounter Summary Created on:December 10, 2021 Patient:LUCAS MEEK Sex:Male :1950 Author Organization [facility] Address [address] [place] [id number] Support Name Relationship Address Phone YUSRA MEEK Unavailable [address] [place] [address] YUSRA MEEK Unavailable [address] [place] [address] CLAY MOSLEY Unavailable Unavailable SJ SANTACRUZ Unavailable [...] MEDICARE MEDICARE PART Jun 18, PART A [id number] DO KALYANI PATIENT (WNR) (M) A 2016 13A 1 UGLAS MEDICARE MEDICARE PART Jun 18, PART B [id number] DO KALYANI PATIENT (WNR) (M) B 2016 13A 1 [place]AS MEDICARE MEDICARE PART Jun 18, PART A [id number] KALYANIDO PATIENT (WNR) (M) A 2017 VH81 2 [place]AS MEDICARE MEDICARE PART Jun 18, PART B [id number] DO KALYANI PATIENT (WNR) (M) B 2017 VH81 2 U[place]AS UNITED MEDICARE MCR(Jun 18 [id number] Luz MEEK PATIENT HEALTHCARE ADVANTAGE NR) 2021 37 0 [facility] (WNR) Selected Encounter This section includes the information on record at [place] for the Encounter. Date/Time Encounter Type Encounter Description Reason Provider Source Dec 10, 2021 05:33 Inpatient Visit DAILY HOSPITALIZATION DATA PM IHE Encounter Template Text not used by [place] Plan of Treatment: Future Appointments (+ 6 months) and Future Tests (+/- 45 days) The Plan of Treatment section includes future care activities for the patient from all [place] treatmentfacilities. This section includes future appointments and [...] - [place] [facility] Jan 10, 2022 11:30 AM AMBULATORY - MEDICINE [facility] Jan 24, 2022 08:00 [place] [facility] Feb 21, 2022 10:00 AM [place] [facility] Mar 21, 2022 10:30 AM AMBULATORY [...] the Encounter. The data comes from all [place] treatment [facility]. Test Date/Time Test Type Test Details Facility Name October 31, 2021 07:37 AM Consult Order COMMUNITY CARE-EGD [facility] Cons Hearing Consultant's Choice November 15, 2021 10:37 AM Consult Order [facility] CARE-PODIATRY Cons Hearing Consultant's Choice Dec 06, 2021 12:52 PM Pharmacy - [place] Infusion Order [facility] Dec 06, 2021 03:24 PM Pharmacy - [place] Order [facility] Dec 06, 2021 03:40 PM Pharmacy - [place] Order [facility] Dec 15, 2021 08:41 AM Consult Order SPEECH PATHOLOGY [place] OUTPATIENT Cons [facility] Hearing Consultant's Choice Jan 15, 2022 10:08 PM Consult Order [facility] CARE-PALLIATIVE CARE Cons Hearing Consultant's Choice Lab Results: +/- 30 days [...] Reference Range Comment Dec 15, 2021 [place] P4 GLU,BUN,CREAT,LYTES,CA Speci men Type: PLASMA 06:43 AM [facility] Comment: Tests performed on Newsbound (405) SN:[id number] Ordering Provid er: ISATU TODD Report Released Date/Time: Dec 11, 2021 07:42 AM Reporting Lab: [facility] DOYLE T [facility] [address] [facility] [address] Performing Lab: [facility] [address] [facility] [address] UREA NITROGEN 9 7-25 SODIUM 137 135-145 [...] T [facility] [address] [facility] [address] Performing Lab: [facility] [address] [facility] [address] WBC 5.7 4.5-11.0 RBC 4.22 L 4.23-5.66 [...] 2 NUE, FFPE See full report in shoutr Image display viewer/tab#LAB-Reference Ordering Provid er: NIURKA MILLER Report Released Date/Time: Dec 21, 2021 12:11 PM Reporting Lab: [facility] [address] [facility] [address] Performing Lab: [facility] CYTOGENETIC [facility]) comment Dec 14, 2021 [facility] P4 GLU,BUN,CREAT,LYTES,CA Speci men Type: PLASMA 06:27 AM [facility] Comment: Tests performed on Newsbound (405) SN:[id number] Ordering Provid er: ISATU TODD Report Released Date/Time: Dec 11, 2021 07:42 AM Reporting Lab: [facility] [address] [facility] [address] Performing Lab: [facility] [address] [facility] [address] UREA NITROGEN 10 7-25 SODIUM 137 135-145 [...] Reporting Lab: [facility] [address] [facility] [address] Performing Lab: [facility] [address] [facility] [address] WBC 6.0 4.5-11.0 RBC 4.29 4.23-5.66 HGB [...] 0.00 0-0 Dec 13, 2021 06:34 AM [facility] CBC PROFILE Sp ecimen Type: BLOOD No comment enter ed. Ordering Provid er: ISATU TODD Report Released Date/Time: Dec 10, 2021 07:22 AM Reporting Lab: [facility] [address] [facility] [address] Performing Lab: [facility] [address] [facility] [address] WBC 5.6 4.5-11.0 RBC 4.28 4.23-5.66 HGB [...] GLU,BUN,CREAT,LYTES,CA Speci men Type: PLASMA 06:34 AM [facility] Comment: Tests performed on Newsbound (405) SN:[id number] Ordering Provid er: ISATU TODD Report Released Date/Time: Dec 11, 2021 07:42 AM Reporting Lab: [facility] [address] [facility] [address] Performing Lab: [facility] [address] [facility] [address] UREA NITROGEN 12 7-25 SODIUM 136 135-145 POTASSIUM 3.9 3.5-5.0 CHLORIDE 105 100-110 CARBON DIOXIDE 24 20-30 ANION GAP 7 4-16 GLUCOSE 102 H 65-100 CREATININE 0.66 0.5-1.5 CALCIUM 8.3 L 8.5-10.5 eGFR(CKD-EPI 2020) >90.0 >60 Dec 12, 2021 [facility] P[facility] GLU,BUN,CREAT,LYTES,CA Speci men Type: PLASMA 06:21 AM [facility] Comment: Tests performed on Newsbound (405) SN:[id number] Ordering Provid er: ISATU TODD Report Released Date/Time: Dec 11, 2021 07:42 AM Reporting Lab: [facility] [address] [facility] [address] Performing Lab: [facility] [address] [facility] [address] UREA NITROGEN 11 7-25 SODIUM 139 135-145 POTASSIUM 4.1 3.5-5.0 CHLORIDE 107 100-110 CARBON DIOXIDE 24 20-30 ANION GAP 8 4-16 GLUCOSE 110 H 65-100 CREATININE 0.70 0.5-1.5 CALCIUM 8.3 L 8.5-10.5 eGFR(CKD-EPI 2020) >90.0 >60 Dec 12, 2021 06:21 AM [facility] CBC PROFILE Sp ecimen Type: BLOOD No comment enter ed. Ordering Provid er: ISATU TODD Report Released Date/Time: Dec 10, 2021 07:22 AM Reporting Lab: [facility] [address] [facility] [address] Performing Lab: [facility] [address] [facility] [address] WBC 5.5 4.5-11.0 RBC 4.37 4.23-5.66 HGB [...] 0.00 0-0 Dec 12, 2021 06:00 AM [employer] [facility] MAGNESIUM Sp ecimen Type: PLASMA Comment: Testin g Performed on Newsbound (405) SN:[id number] Ordering Provid er: ISATU TODD Report Released Date/Time: Dec 12, 2021 08:24 AM Reporting Lab: [place] [facility] [address] [facility] [address] Performing Lab: [employer] [place] [facility] [employer] [address] [facility] [address] MAGNESIUM 1.8 1.6-2.6 Dec 12, 2021 06:00 AM [employer]MROC PHOSPHORUS Sp ecimen Type: PLASMA Comment: Testin g Performed on Newsbound (405) SN:[id number] Ordering Provid er: ISATU TODD Report Released Date/Time: Dec 12, 2021 08:24 AM Reporting Lab: [place] [facility] [address] [facility] [address] Performing Lab: [place] [facility] [employer] [address] [facility] [address] PHOSPHORUS 3.1 2.5-5.0 Dec 11, 2021 06:15 AM [employer] [place] [facility] [employer] ELECTROLYTES Sp ecimen Type: PLASMA Comment: Tests performed on Newsbound (405) SN:[id number] Ordering Provid er: ISATU TODD Report Released Date/Time: Dec 10, 2021 07:22 AM Reporting Lab: [place] [facility] [address] [facility] [address] Performing Lab: [place] [facility] [address] [facility] [address] SODIUM 137 135-145 POTASSIUM 4.3 3.5-5.0 CHLORIDE 108 100-110 CARBON DIOXIDE 20 20-30 ANION GAP 9 4-16 Dec 11, 2021 06:15 AM [place] [facility] CBC PROFILE Sp ecimen Type: BLOOD Comment: Result s checked Ordering Provid er: ISATU TODD Report Released Date/Time: Dec 10, 2021 07:22 AM Reporting Lab: [place] [facility] [facility] [address] [facility] [address] Performing Lab: [place] [facility] [address] [facility] [address] WBC 5.8 4.5-11.0 RBC 4.37 4.23-5.66 HGB [...] ecimen Type: PLASMA Comment: Tests performed on Newsbound (857) SN:[id number] Results checked Ordering Provid er: ISATU TODD Report Released Date/Time: Dec 11, 2021 07:44 AM Reporting Lab: [place] [facility] [address] [facility] [address] Performing Lab: [place] [facility] [address] [facility] [address] PHOSPHORUS 3.0 2.5-5.0 Dec 10, 2021 08:05 AM [place] [facility] MAGNESIUM Sp ecimen Type: PLASMA Comment: [place] [id number] on Dec 10, 2021@08:31 Tests performed on Newsbound (405) SN:[id number] Ordering Provid er: ISATU TODD Report Released Date/Time: Dec 10, 2021 07:22 AM Reporting Lab: [place] [facility] [address] [place] [facility] [place] [address] Performing Lab: [place] [facility] [address] [place] [facility] [place] [address] MAGNESIUM 1.7 1.6-2.6 Dec 10, 2021 08:05 AM [place] [facility] PHOSPHORUS Sp ecimen Type: PLASMA Comment: [place] [id number] on Dec 10, 2021@08:31 Tests performed on Newsbound (405) SN:[id number] Ordering Provid er: ISATU TODD Report Released Date/Time: Dec 10, 2021 07:22 AM Reporting Lab: [place] [facility] [address] [place] [facility] [place] [address] Performing Lab: [place] [facility] [address] [place] [facility] [place] [address] PHOSPHORUS 1.8 L 2.5-5.0 Dec 10, 2021 08:05 AM [place] UREA NITROGEN Specimen Type: PLASMA [facility] Comment: [place] [id number] on Dec 10, 2021@08:31 Tests performed on Newsbound (405) SN:[id number] Ordering Provid er: ISATU TODD Report Released Date/Time: Dec 10, 2021 07:22 AM Reporting Lab: [place] [facility] [address] [place] [facility] [place] [address] Performing Lab: [place] [facility] [address] [place] [facility] [place] [address] UREA NITROGEN 8 7-25 Dec 10, 2021 08:05 AM [place] [facility] GLUCOSE Sp ecimen Type: PLASMA Comment: [place] [id number] on Dec 10, 2021@08:31 Tests performed on Newsbound (405) SN:[id number] Ordering Provid er: ISATU TODD Report Released Date/Time: Dec 10, 2021 07:22 AM Reporting Lab: [place] [facility] [address] [facility] [address] Performing Lab: [place] [facility] [address] [facility] [address] GLUCOSE 144 H 65-100 Dec 10, 2021 08:05 AM [place] [facility] CALCIUM Sp ecimen Type: PLASMA Comment: [place] [id number] on Dec 10, 2021@08:31 Tests performed on Newsbound (405) SN:[id number] Ordering Provid er: ISATU TODD Report Released Date/Time: Dec 10, 2021 07:22 AM Reporting Lab: [place] [facility] [address] [facility] [address] Performing Lab: [place] [facility] [address] [facility] [address] CALCIUM 8.3 L 8.5-10.5 Dec 10, 2021 08:05 AM [place] [facility] ELECTROLYTES Sp ecimen Type: PLASMA Comment: [place] [id number] on Dec 10, 2021@08:31 Tests performed on Newsbound (405) SN:[id number] Ordering Provid er: ISATU TODD Report Released Date/Time: Dec 10, 2021 07:22 AM Reporting Lab: [place] [facility] [address] [facility] [address] Performing Lab: [place] [facility] [address] [facility] [address] SODIUM 139 135-145 POTASSIUM 3.7 3.5-5.0 CHLORIDE 107 100-110 CARBON DIOXIDE 24 20-30 ANION GAP 8 4-16 Dec 10, 2021 08:05 AM [place] [facility] CBC PROFILE Sp ecimen Type: BLOOD No comment enter ed. Ordering Provid er: ISATU TODD Report Released Date/Time: Dec 10, 2021 07:22 AM Reporting Lab: [place] [facility] [address] [facility] [address] Performing Lab: [place] [facility] [address] [facility] [address] WBC 7.0 4.5-11.0 RBC 4.54 4.23-5.66 HGB [...] PLASMA AM [facility] PANEL [place]: [place] [id number] on Dec 10, 2021@08:31 Tests performed on Newsbound (405) SN:[id number] Ordering Provid er: ISATU TODD Report Released Date/Time: Dec 10, 2021 07:22 AM Reporting Lab: [facility] [address] [facility] [address] Performing Lab: [facility] [address] [facility] [address] CREATININE 0.78 0.5-1.5 eGFR(CKD-EPI 2020) >90.0 >60 Dec 09, 2021 06:46 AM [place] [facility] MAGNESIUM Sp ecimen Type: PLASMA Comment: Tests performed on Newsbound (405) SN:[id number] Ordering Provid er: IASTU TODD Report Released Date/Time: Dec 08, 2021 10:23 AM Reporting Lab: [place] [facility] [address] [facility] [address] Performing Lab: [place] [facility] [address] [facility] [address] MAGNESIUM 1.6 1.6-2.6 Dec 09, 2021 [facility] P4 GLU,BUN,CREAT,LYTES,CA Speci men Type: PLASMA 06:46 AM [facility] Comment: Tests performed on Newsbound (405) SN:[id number] Ordering Provid er: ISATU TODD Report Released Date/Time: Dec 08, 2021 05:00 PM Reporting Lab: [facility] [address] [facility] [address] Performing Lab: [facility] [address] [facility] [address] UREA NITROGEN 6 L 7-25 SODIUM 134 [...] [facility] [address] [facility] [address] Performing Lab: [facility] [address] [facility] [address] WBC 7.1 4.5-11.0 RBC 4.40 4.23-5.66 HGB [...] 0-0 Dec 08, 2021 06:39 AM [facility] MAGNESIUM Sp ecimen Type: PLASMA Comment: Testin g Performed on Newsbound (405) SN:[id number] Ordering Provid er: ISATU TODD Report Released Date/Time: Dec 07, 2021 10:32 AM Reporting Lab: [facility] [address] [facility] [address] Performing Lab: [facility] [address] [facility] [address] MAGNESIUM 1.5 L 1.6-2.6 Dec 08, 2021 06:39 AM [facility] CBC PROFILE Sp ecimen Type: BLOOD No comment enter ed. Ordering Provid er: ISATU TODD Report Released Date/Time: Dec 07, 2021 10:32 AM Reporting Lab: [facility] [address] [facility] [address] Performing Lab: [facility] [address] [facility] [address] WBC 8.4 4.5-11.0 RBC 4.75 4.23-5.66 HGB [...] ABSOLUTE NRBC 0.00 0-0 Dec 08, 2021 [facility] P4 GLU,BUN,CREAT,LYTES,CA Speci men Type: PLASMA 06:39 AM [facility] Comment: Testin g Performed on [employer] (405) SN:[id number] Ordering Provid er: ISATU TODD Report Released Date/Time: Dec 07, 2021 10:32 AM Reporting Lab: [facility] [address] [facility] [address] Performing Lab: [facility] [address] [facility] [address] UREA NITROGEN 6 L 7-25 SODIUM 136 135-145 POTASSIUM 3.3 L 3.5-5.0 CHLORIDE 104 100-110 CARBON DIOXIDE 22 20-30 ANION GAP 10 4-16 GLUCOSE 133 H 65-100 CREATININE 0.76 0.5-1.5 CALCIUM 8.4 L 8.5-10.5 eGFR(CKD-EPI 2020) >90.0 >60 Dec 07, 2021 [facility] P4 GLU,BUN,CREAT,LYTES,CA Speci men Type: PLASMA 06:42 AM [facility] Comment: Tests performed on [employer] (405) SN:[id number] Ordering Provid er: PORFIRIO WALTERS Report Released Date/Time: Dec 06, 2021 06:57 PM Reporting Lab: [place] [facility] [address] [facility] [address] Performing Lab: [facility] [address] [facility] [address] UREA NITROGEN 9 7-25 SODIUM 135 135-145 POTASSIUM 3.5 3.5-5.0 CHLORIDE 103 100-110 CARBON DIOXIDE 22 20-30 ANION GAP 10 4-16 GLUCOSE 92 65-100 CREATININE 0.73 0.5-1.5 CALCIUM 8.0 L 8.5-10.5 eGFR(CKD-EPI 2020) >90.0 >60 Dec 07, 2021 06:42 [place] LIVER PROFILE Specimen Typ e: PLASMA AM VAOC Comment: Tests performed on [employer] Senior Trainer (405) SN:[id number] Ordering Provid er: PORFIRIO WALTERS Report Released Date/Time: Dec 06, 2021 06:57 PM Reporting Lab: [facility] [address] [facility] [address] Performing Lab: [facility] [address] [facility] [address] PROTEIN, TOTAL 5.7 L 6.0-8.5 ALBUMIN 2.4 L 3.2-5.0 BILIRUBIN, TOTAL 0.4 0.2-1.2 ALKALINE PHOSPHATASE 109 40-150 ALT(SGPT) 10 7-52 AST(SGOT) 15 5-34 FIB-4 SCORE 1.92 <2.67 Dec 07, 2021 06:42 AM [facility] [facility] CBC PROFILE Specimen Type: BLOOD [facility] No comment enter ed. Ordering Provid er: PORFIRIO WALTERS Report Released Date/Time: Dec 06, 2021 06:57 PM Reporting Lab: [facility] [address] [facility] [address] Performing Lab: [facility] [address] [facility] [address] WBC 5.7 4.5-11.0 RBC 4.15 L 4.23-5.66 [...] [facility]AM[facility] %) AUTOMATED Comment: Tests performed on Newsbound (405) SN:[id number] Ordering Provid er: ISATU TODD Report Released Date/Time: Dec 07, 2021 10:28 AM Reporting Lab: [place] [facility] [address] [facility] [address] Performing Lab: [place] [facility] [address] [facility] [address] RETICULOCYTES (%) AUTOMATED 1.23 0. 6-2.0 RETICULOCYTES (ABS) AUTOMATED 0.052 0.030-0.090 Dec 06, 2021 09:45 [place] MRSA SURVL NARES Specimen Ty pe: NARES PM [facility] DNA No comment enter ed. Ordering Provid er: ALVARO VARGHESE Report Released Date/Time: Dec 07, 2021 02:20 AM Reporting Lab: [place] [facility] [address] [facility] [address] Performing Lab: [place] [facility] [address] [facility] [address] MRSA SURVL NARES DNA NEGATIVE NEGATIVE Dec 06, 2021 06:00 [place] URINALYSIS W/REFLEX TO Speci men Type: URINE PM [facility] CULTURE No comment enter ed. Ordering Provid er: JELANI SÁNCHEZ Report Released Date/Time: Dec 06, 2021 11:57 AM Reporting Lab: [place] [facility] [address] [facility] [address] Performing Lab: [place] [facility] [address] [facility] [address] URINE COLOR Arlin YELLOW SPECIFIC GRAVITY 1.029 [...] 21, [place] VARIANT Comment: https://www.cdc.gov/coronavirus/2019-ncov/cases-updates/variant- surveillance/variant-info.html The CHNL SARS CoV 2 [employer] Assay-GX is a next-generation sequencing (NGS) assa 2021 [facility] SEQUENCING y that determine s the complete genome sequence of the SARS-CoV-2 virus. The assay contains variant-tolerant primers to broaden and improve the coverage for variant detection and increase the sensitivity 12:00 [facility] PNL(WH) of the panel to enable detection from lower viral titer samples. The assay is run on the [employer] Sequencer, which performs automated library preparation, sequencing, analysis, and reporting. PM The sequence an alysis includes determination of viral phylogenetic lineage by comparison to the reference strain Wuhan-Hu-1, GenBank: [id number]. Sequence determination may not be possible owing [...] and its performance characteristics determined by the [facility] Molecular Diagnostics Laboratory, which is certified under the Clinical Laboratory Improveme nt Amendments (C MARCO) as qualified to perform high complexity clinical laboratory testing. This test is validated for clinical use at [facility] and should not be regarded [...] Lab: [facility] [address] [facility] [address] Performing Lab: [facility] [address] [facility] [address] SARS-CoV-2 CLADE() 22C (OMICRON) SARS-CoV-2 LINEAGE() BA.2.12.1 Dec 06, 2021 12:00 [facility] COVID-19 AG SCREEN Specimen Type: NASAL CAVITY PM [facility] PANEL BINAX(405) Comment: Testi ng Performed By: Mike Briscoe Ordering Provid er: JELANI SÁNCHEZ Report Released Date/Time: Dec 08, 2021 08:23 AM Reporting Lab: [facility] [address] [facility] [address] Performing Lab: [facility] [address] [facility] [address] COVID-19 AG SCRN(wrj BINAX) POSITIVE HH NE G Dec 06, 2021 12:00 PM [facility] TROPONIN II Sp ecimen Type: PLASMA Comment: Tests performed on Pham Senior Trainer (405) SN:[id number] Ordering Provid er: JELANI SÁNCHEZ Report Released Date/Time: Dec 06, 2021 11:57 AM Reporting Lab: [facility] [address] [facility] [address] Performing Lab: [facility] [address] [facility] [address] TROPONIN II 0.03 0.00-0.29 Dec 06, 2021 [place] P4 GLU,BUN,CREAT,LYTES,CA Speci men Type: PLASMA 12:00 PM [facility] Comment: Testin g Performed on Pham Senior Trainer (405) SN:[id number] Ordering Provid er: JELANI SÁNCHEZ Report Released Date/Time: Dec 06, 2021 11:57 AM Reporting Lab: [place] [facility] [address] [facility] [address] Performing Lab: [place] [facility] [address] [facility] [address] UREA NITROGEN 13 7-25 SODIUM 138 135-145 POTASSIUM 3.8 3.5-5.0 CHLORIDE 103 100-110 CARBON DIOXIDE 23 20-30 ANION GAP 12 4-16 GLUCOSE 105 H 65-100 CREATININE 0.90 0.5-1.5 CALCIUM 8.7 8.5-10.5 eGFR(CKD-EPI 2020) >90.0 >60 Dec 06, 2021 12:00 PM [facility] LIVER PROFILE Sp ecimen Type: PLASMA Comment: Testin g Performed on [employer]am Senior Trainer (405) SN:[id number] Ordering Provid er: JELANI SÁNCHEZ Report Released Date/Time: Dec 06, 2021 11:57 AM Reporting Lab: [facility] [address] [facility] [address] Performing Lab: [facility] [address] [facility] [address] PROTEIN, TOTAL 6.6 6.0-8.5 ALBUMIN 2.8 L 3.2-5.0 BILIRUBIN, TOTAL 0.6 0.2-1.2 ALKALINE PHOSPHATASE 134 40-150 ALT(SGPT) 13 7-52 AST(SGOT) 18 5-34 FIB-4 SCORE 1.94 <2.67 Dec 06, 2021 12:00 PM [facility] BNP(P) Sp ecimen Type: PLASMA Comment: Tests performed on Pham Senior Trainer (405) SN:[id number] Ordering Provid er: JELANI SÁNCHEZ Report Released Date/Time: Dec 06, 2021 11:57 AM Reporting Lab: [facility] [address] [facility] [address] Performing Lab: [facility] [address] [facility] [address] BNP(P) 224.8 H 10-100 Dec 06, 2021 [facility] COVID-19+FLU/RSV DIAGNOSTIC Spe cimen Type: NASOPHARYNX 12:00 PM [facility] PANEL(405) Comment: Tests performed on [employer] Gen[employer]pert (405) Critical results called to and read back by: ALESHIA WILKINSON RN 12/06/21 @ 1312 Ordering Provid er: JELANI SÁNCHEZ Report Released Date/Time: Dec 06, 2021 11:57 AM Reporting Lab: [facility] [address] [facility] [address] Performing Lab: [place] [facility] [address] [facility] [address] FLU A(PCR) NEGATIVE NEGATIVE FLU B(PCR) NEGATIVE NEGATIVE RSV(PCR) NEGATIVE NEGATIVE COVID-19([id number]) DETECTED HH NO T DETECTED Dec 06, 2021 12:00 PM [facility] ecimen Type: BLOOD No comment enter ed. Ordering Provid er: JELANI SÁNCHEZ Report Released Date/Time: Dec 06, 2021 11:57 AM Reporting Lab: [facility] [address] [facility] [address] Performing Lab: [facility] [address] [facility] [address] WBC 7.2 4.5-11.0 RBC 4.86 4.23-5.66 HGB [...] 94 122/75 18 /min 97 % 0 KINDE 2021 09:00 /min mm[Hg] RIVER PM T [facility] Dec 10, 0 WHITE 2021 08:57 RIVER PM T [facility] Dec 10, 0 WHITE 2021 04:17 RIVER PM T [facility] Dec 10, 97.8 F 93 125/74 20 /min 95 % 0 KINDE 2021 01:40 /min mm[Hg] RIVER PM T [facility] Dec 10, 231.9 32 KINDE 2021 10:22 lb RIVER AM [facility] Social History: Smoking Status (Most current) [...] Date/Time Smoking Status/Tobacco Use Comment [facility] Apr 01, 2020 01:16 PM QUIT TOBACCO [...] [facility] May 01, 2016 03:11 PM QUIT TOBACCO USE IN PAST YEAR CAREY DOYLE [facility] May 01, 2016 11:19 AM QUIT TOBACCO USE IN PAST YEAR CAREY DOYLE [facility] Mar 16, 2016 12:50 PM V1-PT DECLINES REF TO TOBACCO CAREY DOYLE [facility] CESS PRGM Mar 16, 2016 12:50 PM V1-PT THINKING ABOUT QUIT CAREY DOYLE [facility] TOBACCO USE Aug 12, 2015 08:48 AM CURRENT SMOKER CAREY Yates [facility] Radiology Reports: +/- 30 days of [...] the Encounter. The data comes from all [place] treatment facilities. Date/Time Radiology Report Provider Source Dec 13, 2021 12:57 PM MRI ABDOMEN W/WO CONTRAST: MARYELLEN LONG LUCAS LARES N [id number] -1950 [facility] Exm Date: DEC 13, 2021@12:57 Req Phys: ISATU TODD Loc: OP Unknown/0 12-15-2021@13:20 Img Loc: MRI IMAGING (OOS) Service: [facility] MEDICINE (Case [id number] COMPLETE) MRI ABDOMEN W/WO CONTRAST (M RI Detailed) CPT:23909 Reason for Study: further characterization of a [...] new lyphadenopathy REQUESTING MD: Isatu Todd PAGER: [phone] PHONE: [phone] Weight: 232.2 lb [105.32 kg] (12/12/2021 05:00) [...] patient will need to arrange for a hazmat tanker driver to take him/her home after the [...] 15, 2021 Date Verified: DEC 15, 2021 Leader Writer E-Sig:/ES/MARYELLEN LONG Report: MRI ABDOMEN W/WO CONTRAST [...] MALIGNANCY Primary Interpreting Staff: Staff AMELIA THOMAS (Leader Writer) / Dec 10, 2021 09:[address] ABDOMEN & PELVIS: RADIOLOGY,OUTSIDE [facility] LUCAS MEEK N [id number] -1950 M SERVICE [facility] Exm Date: DEC 10, 2021@09:30 Req Phys: ISATU TODD Loc: MED/12-10@10:57 Img Loc: CT SCAN (OOS) Service: [facility] MEDICINE (Case [id number] COMPLETE) CT ABD & PELVIS WITHOUT CONT RAST (CT Detailed) CPT:79077 Reason for Study: 71 yo male with [...] RADIOLOGY [phone] to speak to the appropriate emergency room technician. Report Status: Verified Date Reported: DEC 10, 2021 Date Verified: DEC 10, 2021 Leader Writer E-Sig: Report: EXAM: CT abdomen and pelvis [...] ph nodes. READING PHYSICIAN: Ramone Munoz D.O. [phone] 12/10/2021 10:[address] [facility] National Teleradiology Program [phone] (For Medical Practitioner Use Only ) [address] [facility] [address] [place] [address] Attention Patients / Veterans: If you have ques tions or concerns about these test results, please contact your [facility] or primary care team. Primary Diagnostic Code: SIGNIFICANT ABNORMALIT Y, ATTN NEEDED Primary Interpreting Staff: RADIOLOGY,OUTSIDE SERVICE, Staff Physician / Dec 09, 2021 07:34 AM BASW (MODIFIED): JESSIE CHENEY [facility] LUCAS MEEK N [id number] -1950 M [facility] Exm Date: DEC 09, 2021@07:34 Req Phys: ISATU TODD Loc: 1S MED/12-09@11:26 Img Loc: XRAY (OOS) Service: [facility] MEDICINE (Case [id number] COMPLETE) BASW (MODIFIED) (RAD Detaile d) CPT:91226 Contrast Media : Barium Reason for Study: dysphagia ?esophageal spasm Clinical History: Report Status: Verified Date Reported: DEC 09, 2021 Date Verified: DEC 09, 2021 Leader Writer E-Sig:/ES/JESSIE CHENEY Report: BASW (MODIFIED) , 12/09/2021 [...] REQUIRED Primary Interpreting Staff: JESSIE CHENEY, RADIOLOGIST (Leader Writer) /TLC Dec 06, 2021 12:[address] CHEST (INCLUDES ADRENALS): JESSIE CHENEY [facility] LUCAS MEEK N [id number] -1950 M [facility] Exm Date: DEC 06, 2021@12:59 Req Phys: GONZALOJELANI Loc: [facility] ED DAYS M 1RD (Req'g Loc) Img Loc: CT SCAN (OOS) Service: Unknown (Case [id number] COMPLETE) CT THORAX W/O CONT (CT Detai led) CPT:06206 Reason for Study: Opacification right chest Clinical History: No contrast allergy BUN: 13 (12/06/21 12:00) CREATI: 0.90 (12/06/21 12:00) eGFR 05/16/21 09:43 52 L Weight: 232.6 lb [105.51 kg] (12/06/2021 11:40) BODY MASS INDEX - NO HEIGHTS FOUND Pager number: [phone] STAT orders MUST be called t o RADIOLOGY [phone] to speak to the appropriate emergency room technician. Indications - Other: Opacification right chest, covid positive, lung cancer histo Report Status: Verified Date Reported: DEC 06, 2021 Date Verified: DEC 06, 2021 Leader Writer E-Sig:/ES/JESSIE CHENEY Report: CT THORAX W/O CONT [...] REQUIRED Primary Interpreting Staff: JESSIE CHENEY, RADIOLOGIST (Leader Writer) Primary Interpreting Resident: PRINCE CHAMPION, Resident /BR Dec 06, 2021 11:58 AM CHEST SINGLE VIEW: JESSIE CHENEY DOUGLAS N [id number] -1950 M [facility] Exm Date: DEC 06, 2021@11:58 Req Phys: JELANI SÁNCHEZ Pat Loc: [facility] ED DAYS M 1RD (Req'g Loc) Img Loc: XRAY (OOS) Service: Unknown (Case [id number] COMPLETE) CHEST SINGLE VIEW (RAD Detai led) CPT:65460 Proc Modifiers : PORTABLE EXAM Reason for Study: SOB, home covid test positive Clinical History: Report Status: Verified Date Reported: DEC 06, 2021 Date Verified: DEC 06, 2021 Leader Writer E-Sig:/ES/JESSIE CHENEY Report: Exam type: Chest x-ray [...] REQUIRED Primary Interpreting Staff: JESSIE CHENEY, RADIOLOGIST (Leader Writer) /TLC Pathology Reports: +/- 30 days of [...] the Encounter. The data comes from all [place] treatment facilities. Date/Time Pathology Report Provider Source Jan 03, 2022 10:28 AM LR SURGICAL PATHOLOGY REPORT: STEFANY MILLER LOCAL TITLE: LR SURGICAL PATHOLOGY REPORT [facility] STANDARD TITLE: PATHOLOGY REPORT DATE OF NOTE: JAN 03, 2022@10:28:01 ENTRY DATE: JAN 03, 2022@10:28:01 AUTHOR: NIURKA MILLER EXP COSIGNER: URGENCY: STATUS: COMPLETED $APHDR Reporting Lab: CAREY MONTOYA [facility] [CLIA# [id number]] [address] [place] [address] - - - - - - [...] automatically d ocumented from SURGERY package case #[id number] Field (#32) PRINCIPAL PRE-OP DIAGNOSIS, (#.72) OTHER [...] automatically d ocumented from SURGERY package case #[id number] Field (#34) PRINCIPAL POST-OP DIAG, (#.74) OTHER [...] Label: Lucas Meek Paperwork: Lucas Meek Cassette: [id number];..;KALYANI;.;405;[phone] Specimen is labeled: ES bx Received in formalin are several pieces of pale boyd and brown tissue, 1.2 x 0.7 cm in aggregate. Submitted entirely in 1 cassette [id number];..;KALYANI;.;405;[id number] SAW 12/15/2021 Microscopic exam: *+* MODIFIED REPORT *+* (Last modified: JAN 03, 2022@09:30:20 typed by NIURKA WADDELL) DIAGNOSIS: A. 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 Kendell long. TIARA Coombs was notified on 12/21/21. Modified on 01/03/22 to include report from [facility] stating that tumor is NEGATIVE for her2/ matheus amplification. The attending pathologist who signature mansoor ears on this report has reviewed all diagnostic slides and has edited t he gross and/or microscopic portion of this report in rendering the final pathologic diagnosis. [address] [address] CPT: 87761 /emely/ NIURKA Yeung MD Signed Jan 03, 2022@10:28 Performing Laboratory: Surgical Pathology Report Performed By: CAREY MONTOYA [facility] [CLIA# [id number]] [address] [place] [address] $FTR - - - - - [...] - - LUCAS MEEK STANDARD FORM 515 ID:[id number] SEX:M :1950 AGE: 71 LOC: SDM END PCP: Isatu Todd /emely/ NIURKA MILLER Staff Signed: 01/03/2022 10:28 Dec 21, 2021 11:46 AM LR SURGICAL PATHOLOGY REPORT: STEFANY MILLER [facility] LOCAL TITLE: LR SURGICAL PATHOLOGY REPORT [facility] STANDARD TITLE: PATHOLOGY REPORT DATE OF NOTE: DEC 21, 2021@11:46:59 ENTRY DATE: DEC 21, 2021@11:46:59 AUTHOR: NIURKA MILLER EXP COSIGNER: URGENCY: STATUS: COMPLETED $APHDR Reporting Lab: [facility] [CLIA# [id number]] [address] [facility] [place] [address] - - - - - - [...] automatically d ocumented from SURGERY package case #[id number] Field (#32) PRINCIPAL PRE-OP DIAGNOSIS, (#.72) OTHER [...] automatically d ocumented from SURGERY package case #[id number] Field (#34) PRINCIPAL POST-OP DIAG, (#.74) OTHER [...] Label: Lucas Meek Paperwork: Lucas Meek Cassette: [id number];..;KALYANI;.;057;[phone] Specimen is labeled: ES bx Received in formalin are several pieces of pale boyd and brown tissue, 1.2 x 0.7 cm in aggregate. Submitted entirely in 1 cassette [id number];..;KALYANI;.;405;[id number] SAW 12/15/2021 Microscopic exam: DIAGNOSIS: A. 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 Kendell long. TIARA Coombs was notified on 12/21/21. The attending pathologist who signature mansoor ears on this report has reviewed all diagnostic slides and has edited t he gross and/or microscopic portion of this report in rendering the final pathologic diagnosis. [address] [address] CPT: 17025 /emely/ NIURKA Yeung MD Signed Dec 21, 2021@11:46 Performing Laboratory: Surgical Pathology Report Performed By: [facility] [CLIA# [id number]] [address] [place] [address] $FTR - - - - - [...] - - LUCAS MEEK STANDARD FORM 515 ID:[id number] SEX:M :1950 AGE: 71 LOC: [facility] END PCP: Isatu Todd /charmaine Yeung MD Signed: 12/21/2021 11:46 Dec 06, 2021 03:30 PM LR MICROBIOLOGY REPORT: [facility] Reporting Lab: [facility] [CLIA# [id number]] [address] [place] [address] Accession [UID]: [id number] [[id number]] Receiv ed: Dec 06, 2021@16:14 Collection sample: BLOOD CUL T BOTTLE(NIRMAL/AERO)Collection date: Dec 06, 2021 15:30 Site/Specimen: BLOOD Provider: JELANI SÁNCHEZ Comment on specimen: LAC Test(s) ordered: BLOOD CULTURE ANAEROBI C....... completed: Dec 12, 2021 06:18 * BACTERIOLOGY FINAL REPORT => Dec 12, 2021 06:1 8 TECH CODE: 51221 Bacteriology Remark(s): NO GROWTH IN 5 DAYS =--=--=--=--=--=--=--=--=--=--=--=--=--= --=--=--=--=--=--=--=--=--=--=--=--=-- Performing Laboratory: Bacteriology Report Performed By: [facility] [CLIA# [id number]] [address] [place] [address] Dec 06, 2021 03:30 PM LR MICROBIOLOGY REPORT: [facility] Reporting Lab: [facility] [CLIA# [id number]] [address] [place] [address] Accession [UID]: [id number] [[id number]] Receiv ed: Dec 06, 2021@16:14 Collection sample: BLOOD CUL T BOTTLE(NIRMAL/AERO)Collection date: Dec 06, 2021 15:30 Site/Specimen: BLOOD Provider: JELANI SÁNCHEZ Comment on specimen: LAC Test(s) ordered: BLOOD CULTURE AEROBIC. ........ completed: Dec 12, 2021 06:17 * BACTERIOLOGY FINAL REPORT => Dec 12, 2021 06:1 7 TECH CODE: 50005 Bacteriology Remark(s): NO GROWTH IN 5 DAYS =--=--=--=--=--=--=--=--=--=--=--=--=--= --=--=--=--=--=--=--=--=--=--=--=--=-- Performing Laboratory: Bacteriology Report Performed By: [facility] [CLIA# [id number]] [address] [place] [address]
--- OUTSIDE RECORDS SUMMARY | 2022-01-19 09:05 | XMS_ITS ---
DAILY HOSPITALIZATION DATA [facility] Encounter Summary Created on:December 10, 2021 Patient:LUCAS MEEK Sex:Male :1950 Author Organization [facility] Address [address] [place] [id number] Support Name Relationship Address Phone YUSRA MEEK Unavailable [address] [place] [address] YUSRA MEEK Unavailable [address] [place] [address] CLAY MOSLEY Unavailable Unavailable SJ SANTACRUZ Unavailable [...] MEDICARE MEDICARE PART Jun 18, PART A [id number] DO KALYANI PATIENT (WNR) (M) A 2016 13A 1 [place] MEDICARE MEDICARE PART Jun 18, PART B [id number] DO KALYANI PATIENT (WNR) (M) B 2016 13A 1 [place] MEDICARE MEDICARE PART Jun 18, PART A [id number] KALYANIDO PATIENT (WNR) (M) A 2017 VH81 2 [place] MEDICARE MEDICARE PART Jun 18, PART B [id number] DO KALYANI PATIENT (WNR) (M) B 2017 VH81 2 [place] UNITED MEDICARE MCR(Jun 18 [id number] Luz MEEK PATIENT HEALTHCARE ADVANTAGE NR) 2021 37 0 [facility] (WNR) Selected Encounter This section includes the information on record at [place] for the Encounter. Date/Time Encounter Type Encounter Description Reason Provider Source Dec 10, 2021 08:54 Inpatient Visit DAILY HOSPITALIZATION DATA PM IHE [...] AM AMBULATORY - NONE [place] [facility] Jan 06, 2022 02:00 PM [place] [facility] Jan 10, 2022 11:30 AM AM[facility]ATORY - MEDICINE [facility] Jan 24, 2022 08:00 [place] [facility] Feb 21, 2022 10:00 AM AMBUL[place]ORY [place] [facility] Mar 21, 2022 10:30 AM [...] The data comes from all [place] treatment [facility]. Test Date/Time Test Type Test Details Facility Name October 31, 2021 07:37 AM Consult Order COMMUNITY [facility]ARE-EGD [facility] Cons [employer] November 15, 2021 10:37 AM Consult Order [facility] CARE-PODIATRY Cons [employer] Dec 06, 2021 12:52 PM Pharmacy [...] OUTPATIENT Cons [facility] [employer] Jan 15, 2022 10:08 PM Consult Order [facility] CARE-PALLIATIVE CARE Cons [employer] Lab Results: +/- 30 days of [...] Range Comment Dec 15, 2021 06:[address] [facility] CBC PROFILE Sp ecimen Type: BLOOD No comment enter ed. Ordering Provid er: ISATU TODD Report Released Date/Time: Dec 10, 2021 07:22 AM Reporting Lab: [facility] [address] [address] Performing Lab: [facility] [address] [address] WBC 5.7 4.5-11.0 RBC 4.22 L 4.23-5.66 [...] ABSOLUTE NRBC 0.00 0-0 Dec 15, 2021 [facility] P4 GLU,BUN,CREAT,LYTES,CA Speci men Type: PLASMA 06:43 AM [facility] Comment: Tests performed on [address] Mender (405) SN:[id number] Ordering Provid er: ISATU TODD Report Released Date/Time: Dec 11, 2021 07:42 AM Reporting Lab: [facility] [address] [address] Performing Lab: [facility] [address] [address] UREA NITROGEN 9 7-25 SODIUM 137 135-145 POTASSIUM 3.8 3.5-5.0 CHLORIDE 105 100-110 CARBON DIOXIDE 26 20-30 ANION GAP 6 4-16 GLUCOSE 102 H 65-100 CREATININE 0.64 0.5-1.5 CALCIUM 8.1 L 8.5-10.5 eGFR(CKD-EPI 2020) >90.0 >60 Dec 14, 2021 [facility] CYTOGENETIC Specimen Type: ESOPHAGUS 02:59 PM [facility] Comment: ~For T est: CYTOGENETIC FISH([facility] ~FISH HER 2 NUE, FFPE See full report in [employer] Image display viewer/tab#LAB-Reference Ordering Provid er: NIURKA MILLER Report Released Date/Time: Dec 21, 2021 12:11 PM Reporting Lab: [facility] [address] [address] Performing Lab: [facility] CYTOGENETIC FISH[place] comment Dec 14, 2021 [place] P4 GLU,BUN,CREAT,LYTES,CA Speci men Type: PLASMA 06:[address] [facility] Comment: Tests performed on [address] Mender (405) SN:[id number] Ordering Provid er: ISATU TODD Report Released Date/Time: Dec 11, 2021 07:42 AM Reporting Lab: [facility] [address] [address] Performing Lab: [facility] [address] [facility] [address] UREA NITROGEN 10 7-25 SODIUM 137 135-145 [...] Reporting Lab: [facility] [address] [address] Performing Lab: [facility] [address] [address] WBC 6.0 4.5-11.0 RBC 4.29 4.23-5.66 HGB [...] ABSOLUTE NRBC 0.00 0-0 Dec 13, 2021 [facility] P4 GLU,BUN,CREAT,LYTES,CA Speci men Type: PLASMA 06:[address] [facility] Comment: Tests performed on [email or web address] (405) SN:[id number] Ordering Provid er: ISATU TODD Report Released Date/Time: Dec 11, 2021 07:42 AM Reporting Lab: [facility] [address] [address] Performing Lab: [facility] [address] [address] UREA NITROGEN 12 7-25 SODIUM 136 135-145 [...] Reporting Lab: [facility] [address] [address] Performing Lab: [facility] [address] [address] WBC 5.6 4.5-11.0 RBC 4.28 4.23-5.66 HGB [...] ABSOLUTE NRBC 0.00 0-0 Dec 12, 2021 [facility] P4 GLU,BUN,CREAT,LYTES,CA Speci men Type: PLASMA 06:[address] [facility] Comment: Tests performed on [email or web address] (405) SN:[id number] Ordering Provid er: ISATU TODD Report Released Date/Time: Dec 11, 2021 07:42 AM Reporting Lab: [facility] [address] [address] Performing Lab: [facility] [address] [address] UREA NITROGEN 11 7-25 SODIUM 139 135-145 [...] AM Reporting Lab: [facility] [address] [address] Performing Lab: [facility] [address] [address] WBC 5.5 4.5-11.0 RBC 4.37 4.23-5.66 HGB [...] 0.00 0-0 Dec 12, 2021 06:00 AM [employer] [facility] MAGNESIUM Sp ecimen Type: PLASMA Comment: Testin g Performed on [email or web address] (405) SN:[id number] Ordering Provid er: ISATU TODD Report Released Date/Time: Dec 12, 2021 08:24 AM Reporting Lab: [place] Subject CompanyT [facility] [address] [address] Performing Lab: [employer] [place] Subject CompanyT [employer] [address] [address] MAGNESIUM 1.8 1.6-2.6 Dec 12, 2021 06:00 AM RSensT [employer] PHOSPHORUS Sp ecimen Type: PLASMA Comment: Testin g Performed on [email or web address] (405) SN:[id number] Ordering Provid er: ISATU TODD Report Released Date/Time: Dec 12, 2021 08:24 AM Reporting Lab: [place] Subject CompanyT [facility] [address] [address] Performing Lab: [place] Subject [employer]T [employer] [address] [address] PHOSPHORUS 3.1 2.5-5.0 Dec 11, 2021 06:15 AM [employer] [place] Subject CompanyT [employer] ELECTROLYTES Sp ecimen Type: PLASMA Comment: Tests performed on [email or web address] (405) SN:[id number] Ordering Provid er: ISATU TODD Report Released Date/Time: Dec 10, 2021 07:22 AM Reporting Lab: [place] Subject CompanyT [facility] [address] [address] Performing Lab: [place] Subject CompanyT [facility] [address] [address] SODIUM 137 135-145 POTASSIUM 4.3 3.5-5.0 CHLORIDE 108 100-110 CARBON DIOXIDE 20 20-30 ANION GAP 9 4-16 Dec 11, 2021 06:15 AM [place] [employer] [facility] CBC PROFILE Sp ecimen Type: BLOOD Comment: Result s checked Ordering Provid er: ISATU TODD Report Released Date/Time: Dec 10, 2021 07:22 AM Reporting Lab: [place] [employer] [facility] [address] [address] Performing Lab: [facility] [place] [employer] [facility] [address] [address] WBC 5.8 4.5-11.0 RBC 4.37 4.23-5.66 HGB [...] ecimen Type: PLASMA Comment: Tests performed on [email or web address] (518) SN:[id number] Results checked Ordering Provid er: ISATU TODD Report Released Date/Time: Dec 11, 2021 07:44 AM Reporting Lab: [facility] [facility] [address] [address] Performing Lab: [place] [employer]MEGAT [facility] [address] [address] PHOSPHORUS 3.0 2.5-5.0 Dec 10, 2021 08:05 AM [place] [facility] MAGNESIUM Sp ecimen Type: PLASMA Comment: [place] [id number] on Dec 10, 2021@08:31 Tests performed on [email or web address] (405) SN:[id number] Ordering Provid er: ISATU TODD Report Released Date/Time: Dec 10, 2021 07:22 AM Reporting Lab: [place] [facility] [address] [place] [facility] [place] [address] Performing Lab: [place] [facility] [address] [place] [facility] [place] [address] MAGNESIUM 1.7 1.6-2.6 Dec 10, 2021 08:05 AM [place] UREA NITROGEN Specimen Type: PLASMA [facility] Comment: [place] [id number] on Dec 10, 2021@08:31 Tests performed on [email or web address] (405) SN:[id number] Ordering Provid er: ISATU TODD Report Released Date/Time: Dec 10, 2021 07:22 AM Reporting Lab: [place] [facility] [address] [place] [facility] [place] [address] Performing Lab: [place] [facility] [address] [place] [facility] [place] [address] UREA NITROGEN 8 7-25 Dec 10, 2021 08:05 AM [place] [facility] PHOSPHORUS Sp ecimen Type: PLASMA Comment: [place] [id number] on Dec 10, 2021@08:31 Tests performed on [email or web address] (405) SN:[id number] Ordering Provid er: ISATU TODD Report Released Date/Time: Dec 10, 2021 07:22 AM Reporting Lab: [place] [facility] [address] [place] [facility] [place] [address] Performing Lab: [place] [facility] [address] [place] [facility] [place] [address] PHOSPHORUS 1.8 L 2.5-5.0 Dec 10, 2021 08:05 AM [place] [facility] GLUCOSE Sp ecimen Type: PLASMA Comment: [place] [id number] on Dec 10, 2021@08:31 Tests performed on [email or web address] (405) SN:[id number] Ordering Provid er: ISATU TODD Report Released Date/Time: Dec 10, 2021 07:22 AM Reporting Lab: [place] [facility] [address] [facility] [facility] [address] Performing Lab: [place] [facility] [address] [address] GLUCOSE 144 H 65-100 Dec 10, 2021 08:05 AM [place] [facility] ELECTROLYTES Sp ecimen Type: PLASMA Comment: [place] [id number] on Dec 10, 2021@08:31 Tests performed on [employer] (405) SN:[id number] Ordering Provid er: ISATU TODD Report Released Date/Time: Dec 10, 2021 07:22 AM Reporting Lab: [place] [facility] [address] [facility] [address] Performing Lab: [place] [facility] [address] [address] SODIUM 139 135-145 POTASSIUM 3.7 3.5-5.0 CHLORIDE 107 100-110 CARBON DIOXIDE 24 20-30 ANION GAP 8 4-16 Dec 10, 2021 08:05 AM [place] [facility] CALCIUM Sp ecimen Type: PLASMA Comment: [place] [id number] on Dec 10, 2021@08:31 Tests performed on [employer] (405) SN:[id number] Ordering Provid er: ISATU TODD Report Released Date/Time: Dec 10, 2021 07:22 AM Reporting Lab: [place] [facility] [address] [facility] [address] Performing Lab: [place] [facility] [address] [facility] [address] CALCIUM 8.3 L 8.5-10.5 Dec 10, 2021 08:05 [place] CREATININE WITH eGFR Specime n Type: PLASMA AM [facility] PANEL Comment: [place] [id number] on Dec 10, 2021@08:31 Tests performed on [email or web address] (405) SN:[id number] Ordering Provid er: ISATU TODD Report Released Date/Time: Dec 10, 2021 07:22 AM Reporting Lab: [place] [facility] [address] [facility] [facility] [address] Performing Lab: [place] [facility] [address] [facility] [address] CREATININE 0.78 0.5-1.5 eGFR(CKD-EPI 2020) >90.0 >60 Dec 10, 2021 08:05 AM [facility] CBC PROFILE Sp ecimen Type: BLOOD No comment enter ed. Ordering Provid er: ISATU TODD Report Released Date/Time: Dec 10, 2021 07:22 AM Reporting Lab: [place] [employer] [facility] [address] [facility] [address] Performing Lab: [place] OME[employer] [facility] [address] [address] WBC 7.0 4.5-11.0 RBC 4.54 4.23-5.66 HGB [...] ecimen Type: PLASMA Comment: Tests performed on [email or web address] (113) SN:[id number] Ordering Provid er: ISATU TODD Report Released Date/Time: Dec 08, 2021 10:23 AM Reporting Lab: [facility] [address] [address] Performing Lab: [facility] [address] [address] MAGNESIUM 1.6 1.6-2.6 Dec 09, 2021 [facility] P4 GLU,BUN,CREAT,LYTES,CA Speci men Type: PLASMA 06:[address] [facility] Comment: Tests performed on [email or web address] (405) SN:[id number] Ordering Provid er: ISATU TODD Report Released Date/Time: Dec 08, 2021 05:00 PM Reporting Lab: [facility] [address] [address] Performing Lab: [facility] [address] [address] UREA NITROGEN 6 L 7-25 SODIUM 134 [...] Reporting Lab: [facility] [address] [address] Performing Lab: [facility] [address] [address] WBC 7.1 4.5-11.0 RBC 4.40 4.23-5.66 HGB [...] 0.00 0-0 Dec 08, 2021 06:39 AM [place] [employer] T [facility] MAGNESIUM Sp ecimen Type: PLASMA Comment: Testin g Performed on [email or web address] (405) SN:[id number] Ordering Provid er: ISATU TODD Report Released Date/Time: Dec 07, 2021 10:32 AM Reporting Lab: [facility] [address] [address] Performing Lab: [facility] [address] [address] MAGNESIUM 1.5 L 1.6-2.6 Dec 08, 2021 [place] [employer] T P4 GLU,BUN,CREAT,LYTES,CA Speci men Type: PLASMA 06:39 AM [facility] Comment: Testin g Performed on [email or web address] (405) SN:[id number] Ordering Provid er: ISATU TODD Report Released Date/Time: Dec 07, 2021 10:32 AM Reporting Lab: [place] T [facility] [address] [address] Performing Lab: [facility] [address] [address] UREA NITROGEN 6 L 7-25 SODIUM 136 135-145 POTASSIUM 3.3 L 3.5-5.0 CHLORIDE 104 100-110 CARBON DIOXIDE 22 20-30 ANION GAP 10 4-16 GLUCOSE 133 H 65-100 CREATININE 0.76 0.5-1.5 CALCIUM 8.4 L 8.5-10.5 eGFR(CKD-EPI 2020) >90.0 >60 Dec 08, 2021 06:39 AM [place] [employer] T [facility] CBC PROFILE Sp ecimen Type: BLOOD No comment enter ed. Ordering Provid er: ISATU TODD Report Released Date/Time: Dec 07, 2021 10:32 AM Reporting Lab: [facility] [address] [address] Performing Lab: [facility] [address] [facility] WBC 8.4 4.5-11.0 RBC 4.75 4.23-5.66 [...] NRBC 0.00 0-0 Dec 07, 2021 06:42 [facility] LIVER PROFILE Specimen Typ e: PLASMA AM [facility] Comment: Tests performed on [email or web address] (405 SN:[id number] Ordering Provid er: PORFIRIO WALTERS Report Released Date/Time: Dec 06, 2021 06:57 PM Reporting Lab: [facility] [address] [address] Performing Lab: [facility] [address] [address] PROTEIN, TOTAL 5.7 L 6.0-8.5 ALBUMIN 2.4 L 3.2-5.0 BILIRUBIN, TOTAL 0.4 0.2-1.2 ALKALINE PHOSPHATASE 109 40-150 ALT(SGPT) 10 7-52 AST(SGOT) 15 5-34 FIB-4 SCORE 1.92 <2.67 Dec 07, 2021 [facility] P4 GLU,BUN,CREAT,LYTES,CA Speci men Type: PLASMA 06:42 AM [facility] Comment: Tests performed on [email or web address] (405) SN:[id number] Ordering Provid er: PORFIRIO WALTERS Report Released Date/Time: Dec 06, 2021 06:57 PM Reporting Lab: [place] [facility] [address] [facility] [address] Performing Lab: [place] [facility] [address] [facility] [address] UREA NITROGEN 9 7-25 SODIUM 135 135-145 POTASSIUM 3.5 3.5-5.0 CHLORIDE 103 100-110 CARBON DIOXIDE 22 20-30 ANION GAP 10 4-16 GLUCOSE 92 65-100 CREATININE 0.73 0.5-1.5 CALCIUM 8.0 L 8.5-10.5 eGFR(CKD-EPI 2020) >90.0 >60 Dec 07, 2021 06:42 AM [place] CBC PROFILE Specimen Type: BLOOD [facility] No comment enter ed. Ordering Provid er: PORFIRIO WALTERS Report Released Date/Time: Dec 06, 2021 06:57 PM Reporting Lab: [place] [facility] [address] [facility] [address] Performing Lab: [facility] [address] [address] WBC 5.7 4.5-11.0 RBC 4.15 L 4.23-5.66 [...] [facility] %) AUTOMATED Comment: Tests performed on [email or web address] (405) SN:[id number] Ordering Provid er: ISATU TODD Report Released Date/Time: Dec 07, 2021 10:28 AM Reporting Lab: [place] [facility] [address] [facility] [address] Performing Lab: [place] [facility] [address] [facility] [address] RETICULOCYTES (%) AUTOMATED 1.23 0. 6-2.0 RETICULOCYTES (ABS) AUTOMATED 0.052 0.030-0.090 Dec 06, 2021 09:45 [place] MRSA SURVL NARES Specimen Ty pe: NARES PM [facility] DNA No comment enter ed. Ordering Provid er: ALVARO VARGHESE Report Released Date/Time: Dec 07, 2021 02:20 AM Reporting Lab: [place] [facility] [address] [facility] [address] Performing Lab: [place] [facility] [address] [facility] [address] MRSA SURVL NARES DNA NEGATIVE NEGATIVE Dec 06, 2021 06:00 [place] URINALYSIS W/REFLEX TO Speci men Type: URINE PM [facility] CULTURE No comment enter ed. Ordering Provid er: JELANI SÁNCHEZ Report Released Date/Time: Dec 06, 2021 11:57 AM Reporting Lab: [place] [facility] [address] [facility] [address] Performing Lab: [place] [facility] [address] [facility] [address] URINE COLOR Arlin YELLOW SPECIFIC GRAVITY 1.029 [...] 21, [place]IANT Comment: https://www.cdc.gov/coronavirus/2019-ncov/cases-updates/variant- surveillance/variant-info.html The [employer] SARS CoV 2 [employer] Assay-GX is a next-generation sequencing (NGS) assa 2021 [facility] SEQUENCING y that determine s the complete genome sequence of the SARS-CoV-2 virus. The assay contains variant-tolerant primers to broaden and improve the coverage for variant detection and increase the sensitivity 12:00 [facility] PNL(WH) of the panel to enable detection from lower viral titer samples. The assay is run on the [employer] Sequencer, which performs automated library preparation, sequencing, analysis, and reporting. PM The sequence an alysis includes determination of viral phylogenetic lineage by comparison to the reference strain Wuhan-Hu-1, GenBank: [id number]. Sequence determination may not be possible owing [...] [facility] [address] [facility] [address] Performing Lab: [facility] [address] [facility] [place] [place] [place] [address] SARS-CoV-2 CLADE() 22C (OMICRON) SARS-CoV-2 LINEAGE() BA.2.12.1 Dec 06, 2021 12:00 [facility] COVID-19 AG SCREEN Specimen Type: NASAL CAVITY PM [facility] PANEL BINAX(405) Comment: Testi ng Performed By: Mike Briscoe Ordering Provid er: JELANI SÁNCHEZ Report Released Date/Time: Dec 08, 2021 08:23 AM Reporting Lab: [facility] [address] [facility] [facility] [address] Performing Lab: [facility] [address] [facility] [facility] [address] COVID-19 AG SCRN(wrj BINAX) POSITIVE HH NE G Dec 06, 2021 12:00 PM [facility] TROPONIN II Sp ecimen Type: PLASMA Comment: Tests performed on [address] [employer] (405) SN:[id number] Ordering Provid er: JELANI SÁNCHEZ Report Released Date/Time: Dec 06, 2021 11:57 AM Reporting Lab: [facility] [address] [facility] [address] Performing Lab: [facility] [address] [facility] [address] TROPONIN II 0.03 0.00-0.29 Dec 06, 2021 [place] P4 GLU,BUN,CREAT,LYTES,CA Speci men Type: PLASMA 12:00 PM [facility] Comment: Testin g Performed on [address] [employer] (405) SN:[id number] Ordering Provid er: JELANI SÁNCHEZ Report Released Date/Time: Dec 06, 2021 11:57 AM Reporting Lab: [place] [facility] [address] [facility] [address] Performing Lab: [place] [facility] [address] [facility] [address] UREA NITROGEN 13 7-25 SODIUM 138 135-145 POTASSIUM 3.8 3.5-5.0 CHLORIDE 103 100-110 CARBON DIOXIDE 23 20-30 ANION GAP 12 4-16 GLUCOSE 105 H 65-100 CREATININE 0.90 0.5-1.5 CALCIUM 8.7 8.5-10.5 eGFR(CKD-EPI 2020) >90.0 >60 Dec 06, 2021 12:00 PM [facility] BNP(P) Sp ecimen Type: PLASMA Comment: Tests performed on [address] [employer] (405) SN:[id number] Ordering Provid er: JELANI SÁNCHEZ Report Released Date/Time: Dec 06, 2021 11:57 AM Reporting Lab: [facility] [address] [facility] [address] Performing Lab: [facility] [address] [facility] [facility] [address] BNP(P) 224.8 H 10-100 Dec 06, 2021 12:00 PM [facility] LIVER PROFILE Sp ecimen Type: PLASMA Comment: Testin g Performed on [email or web address] (405) SN:[id number] Ordering Provid er: JELANI SÁNCHEZ Report Released Date/Time: Dec 06, 2021 11:57 AM Reporting Lab: [facility] [address] [facility] [address] Performing Lab: [facility] [address] [facility] [address] PROTEIN, TOTAL 6.6 6.0-8.5 ALBUMIN 2.8 L 3.2-5.0 BILIRUBIN, TOTAL 0.6 0.2-1.2 ALKALINE PHOSPHATASE 134 40-150 ALT(SGPT) 13 7-52 AST(SGOT) 18 5-34 FIB-4 SCORE 1.94 <2.67 Dec 06, 2021 [facility] COVID-19+FLU/RSV DIAGNOSTIC Spe cimen Type: NASOPHARYNX 12:00 PM [facility] PANEL(405) Comment: Tests performed on [email or web address] (405) Critical results called to and read back by: ALESHIA WILKINSON RN 12/06/21 @ 1312 Ordering Provid er: JELANI SÁNCHEZ Report Released Date/Time: Dec 06, 2021 11:57 AM Reporting Lab: [facility] [address] [facility] [address] Per[facility] Lab: [facility] [address] [facility] [address] FLU A(PCR) NEGATIVE NEGATIVE FLU B(PCR) NEGATIVE NEGATIVE RSV(PCR) NEGATIVE NEGATIVE COVID-19([id number]) DETECTED HH NO T DETECTED Dec 06, 2021 12:00 PM [facility] CBC PROFILE Sp ecimen Type: BLOOD No comment enter ed. Ordering Provid er: JELANI SÁNCHEZ Report Released Date/Time: Dec 06, 2021 11:57 AM Reporting Lab: [facility] [address] [address] Performing Lab: [facility] [address] [id number] WBC 7.2 4.5-11.0 RBC 4.86 4.23-5.66 HGB [...] 94 122/75 18 /min 97 % 0 [place] 2021 09:00 /min mm[Hg] [facility] PM [facility] Dec 10, 0 [place] 2021 08:[address] [facility] Dec 10, 0 [place] 2021 04:[address] [facility] Dec 10, 97.8 F 93 125/74 20 /min 95 % 0 [place] 2021 01:40 /min mm[Hg] R[place] PM [facility] Dec 10, 231.9 32 [place] 2021 10:22 lb [place] AM [facility] Social History: Smoking Status (Most current) [...] place. Date/Time Smoking Status/Tobacco Use Comment [facility] Apr 01, 2020 01:16 PM [...] [facility] May 01, 2016 03:11 PM QUIT TOBACCO USE IN PAST YEAR CAREY DOYLE [facility] May 01, 2016 11:19 AM QUIT TOBACCO USE IN PAST YEAR CAREY DOLYE [facility] Mar 16, 2016 12:50 PM V1-PT DECLINES REF TO TOBACCO CAREY DOYLE [facility] CESS PRGM Mar 16, 2016 12:50 PM V1-PT THINKING ABOUT QUIT CAREY DOYLE [facility] TOBACCO USE Aug 12, 2015 08:48 AM CURRENT SMOKER CAREY Yates [facility] Radiology Reports: +/- 30 days of [...] W/WO CONTRAST: MARYELLEN LONG LUCAS LARES N [id number] -1950 [facility] Exm Date: DEC 13, 2021@12:57 Req Phys: ISATU TODD Loc: OP Unknown/0 12-15-2021@13:20 Img Loc: MRI IMAGING (OOS) Service: [facility] MEDICINE (Case [id number] COMPLETE) MRI ABDOMEN W/WO CONTRAST (M RI Detailed) CPT:11758 Reason for Study: further characterization of a [...] new lyphadenopathy REQUESTING MD: Isatu Todd PAGER: [phone] PHONE: [phone] Weight: 232.2 lb [105.32 kg] (12/12/2021 05:00) [...] patient will need to arrange for a crew 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 to take him/her home after [...] 15, 2021 Date Verified: DEC 15, 2021 Cis Coordinator E-Sig:/ES/MARYELLEN LONG Report: MRI ABDOMEN W/WO [...] MALIGNANCY Primary Interpreting Staff: Staff AMELIA THOMAS (Cis Coordinator) / Dec 10, 2021 09:[address] ABDOMEN & PELVIS: RADIOLOGY,OUTSIDE [facility] [place] LUCAS MEEK N [id number] -[address] [facility] Exm Date: DEC 10, 2021@09:30 Req Phys: ISATU TODD Loc: MED/12-10@10:57 Img Loc: CT SCAN (OOS) Service: [facility] MEDICINE (Case [id number] COMPLETE) CT ABD & PELVIS WITHOUT CONT RAST (CT Detailed) CPT:39399 Reason for Study: 71 yo male with [...] RADIOLOGY [phone] to speak to the appropriate process development technician. Report Status: Verified Date Reported: DEC 10, 2021 Date Verified: DEC 10, 2021 Cis Coordinator E-Sig: Report: EXAM: CT abdomen and [...] ph nodes. READING PHYSICIAN: Ramone Munoz D.O. [phone] 12/10/2021 10:55 EDT [facility] National Teleradiology Program [phone] (For Medical Practitioner Use Only ) [address] [facility] [address] [place] [address] Attention Patients / Veterans: If you have ques tions or concerns about these test results, please contact [facility] or primary care team. Primary Diagnostic Code: SIGNIFICANT ABNORMALIT Y, ATTN NEEDED Primary Interpreting Staff: RADIOLOGY,OUTSIDE SERVICE, Staff Physician / Dec 09, 2021 07:34 AM BASW (MODIFIED): JESSIE CHENEY [facility] LUCAS MEEK N [id number] -1950 M [facility] Exm Date: DEC 09, 2021@07:34 Req Phys: ISATU TODD Loc: 1S MED/12-09@11:26 Img Loc: XRAY (OOS) Service: [facility] MEDICINE (Case [id number] COMPLETE) BASW (MODIFIED) (RAD Detaile d) CPT:70369 Contrast Media : Barium Reason for Study: dysphagia ?esophageal spasm Clinical History: Report Status: Verified Date Reported: DEC 09, 2021 Date Verified: DEC 09, 2021 Cis Coordinator E-Sig:/ES/JESSIE CHENEY Report: BASW (MODIFIED) , 12/09/2021 [...] REQUIRED Primary Interpreting Staff: JESSIE CHENEY, RADIOLOGIST (Cis Coordinator) /TLC Dec 06, 2021 12:[address] CHEST (INCLUDES ADRENALS): JESSIE CHENEY [facility] LUCAS MEEK N [id number] -1950 M [facility] Exm Date: DEC 06, 2021@12:59 Req Phys: GONZALOJELANI Loc: [facility] ED DAYS M 1RD (Req'g Loc) Img Loc: CT SCAN (OOS) Service: Unknown (Case [id number] COMPLETE) CT THORAX W/O CONT (CT Detai led) CPT:69873 Reason for Study: Opacification right chest Clinical History: No contrast allergy BUN: 13 (12/06/21 12:00) CREATI: 0.90 (12/06/21 12:00) eGFR 05/16/21 09:43 52 L Weight: 232.6 lb [105.51 kg] (12/06/2021 11:40) BODY MASS INDEX - NO HEIGHTS FOUND Pager number: [phone] STAT orders MUST be called t o RADIOLOGY [phone] to speak to the appropriate process development technician. Indications - Other: Opacification right chest, covid positive, lung cancer histo Report Status: Verified Date Reported: DEC 06, 2021 Date Verified: DEC 06, 2021 Cis Coordinator E-Sig:/ES/JESSIE CHENEY Report: CT THORAX W/O [...] REQUIRED Primary Interpreting Staff: JESSIE CHENEY, RADIOLOGIST (Cis Coordinator) Primary Interpreting Resident: PRINCE CHAMPION, Resident /BR Dec 06, 2021 11:58 AM CHEST SINGLE VIEW: JESSIE CHENEY DOUGLAS N [id number] -1950 M [facility] Exm Date: DEC 06, 2021@11:58 Req Phys: JELANI SÁNCHEZ Pat Loc: [facility] ED DAYS M 1RD (Req'g Loc) Img Loc: XRAY (OOS) Service: Unknown (Case [id number] COMPLETE) CHEST SINGLE VIEW (RAD Detai led) CPT:78358 Proc Modifiers : PORTABLE EXAM Reason for Study: SOB, home covid test positive Clinical History: Report Status: Verified Date Reported: DEC 06, 2021 Date Verified: DEC 06, 2021 Cis Coordinator E-Sig:/ES/JESSIE CHENEY Report: Exam type: Chest [...] REQUIRED Primary Interpreting Staff: JESSIE CHENEY, RADIOLOGIST (Cis Coordinator) /TLC Pathology Reports: +/- 30 days [...] [facility] [CLIA# [id number]] [address] [place] [address] - - - - - - [...] automatically d ocumented from SURGERY package case #[id number] Field (#32) PRINCIPAL PRE-OP DIAGNOSIS, (#.72) OTHER [...] automatically d ocumented from SURGERY package case #[id number] Field (#34) PRINCIPAL POST-OP DIAG, (#.74) OTHER [...] Label: Lucas Meek Paperwork: Lucas Meek Cassette: [id number];..;KALYANI;.;405;[id number] Specimen is labeled: ES bx Received in formalin are several pieces of pale boyd and brown tissue, 1.2 x 0.7 cm in aggregate. Submitted entirely in 1 cassette [id number];..;KALYANI;.;405;[id number] SAW 12/15/2021 Microscopic exam: *+* MODIFIED REPORT [...] in rendering the final pathologic diagnosis. [address] [address] CPT: 57584 /emely/ NIURKA Yeung MD Signed Jan 03, 2022@10:28 Performing Laboratory: Surgical Pathology Report Performed By: CAREY [facility] [CLIA# [id number]] [address] [place] [address] $FTR - - - - - [...] - - LUCAS MEEK STANDARD FORM 515 ID:[id number] SEX:M :1950 AGE: 71 LOC: [facility] END PCP: Isatu Todd /emely/ NIURKA MILLER Staff Signed: 01/03/2022 10:28 Dec 21, 2021 11:46 AM LR SURGICAL PATHOLOGY REPORT: STEFANY MILLER [facility] LOCAL TITLE: LR SURGICAL PATHOLOGY REPORT [facility] STANDARD TITLE: PATHOLOGY REPORT DATE OF NOTE: DEC 21, 2021@11:46:59 ENTRY DATE: DEC 21, 2021@11:46:59 AUTHOR: NIURKA MILLER EXP COSIGNER: URGENCY: STATUS: COMPLETED $APHDR Reporting Lab: [facility] [CLIA# [id number]] [address] [place] [facility] [address] - - - - - - [...] automatically d ocumented from SURGERY package case #[id number] Field (#32) PRINCIPAL PRE-OP DIAGNOSIS, (#.72) OTHER [...] automatically d ocumented from SURGERY package case #[id number] Field (#34) PRINCIPAL POST-OP DIAG, (#.74) OTHER [...] Label: Lucas Meek Paperwork: Lucas Meek Cassette: [id number];..;KALYANI;.;537;[phone] Specimen is labeled: ES bx Received in formalin are several pieces of pale boyd and brown tissue, 1.2 x 0.7 cm in aggregate. Submitted entirely in 1 cassette [id number];..;KALYANI;.;405;[id number] SAW 12/15/2021 Microscopic exam: DIAGNOSIS: A. 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 Kendell long. TIARA Coombs was notified on 12/21/21. The attending pathologist who signature mansoor ears on this report has reviewed all diagnostic slides and has edited t he gross and/or microscopic portion of this report in rendering the final pathologic diagnosis. [address] [address] CPT: 26152 /emely/ NIURKA Yeung MD Signed Dec 21, 2021@11:46 Performing Laboratory: Surgical Pathology Report Performed By: [facility] [CLIA# [id number]] [address] [place] [address] $FTR - - - - - [...] - - LUCAS MEEK STANDARD FORM 515 ID:[id number] SEX:M :1950 AGE: 71 LOC: [facility] END PCP: Isatu Todd /charmaine Yeung MD Signed: 12/21/2021 11:46 Dec 06, 2021 03:30 PM LR MICROBIOLOGY REPORT: [facility] Reporting Lab: [facility] [CLIA# [id number]] [address] [place] [address] Accession [UID]: [id number] [[id number]] Receiv ed: Dec 06, 2021@16:14 Collection sample: BLOOD CUL T BOTTLE(NIRMAL/AERO)Collection date: Dec 06, 2021 15:30 Site/Specimen: BLOOD Provider: JELANI SÁNCHEZ Comment on specimen: LAC Test(s) ordered: BLOOD CULTURE ANAEROBI C....... completed: Dec 12, 2021 06:18 * BACTERIOLOGY FINAL REPORT => Dec 12, 2021 06:1 8 TECH CODE: [id number] Bacteriology Remark(s): NO GROWTH IN 5 DAYS =--=--=--=--=--=--=--=--=--=--=--=--=--= --=--=--=--=--=--=--=--=--=--=--=--=-- Performing Laboratory: Bacteriology Report Performed By: [facility] [CLIA# [id number]] [address] [place] [address] Dec 06, 2021 03:30 PM LR MICROBIOLOGY REPORT: [facility] Reporting Lab: [facility] [CLIA# [id number]] [address] [place] [address] Accession [UID]: [id number] [[id number]] Receiv ed: Dec 06, 2021@16:14 Collection sample: BLOOD CUL T BOTTLE(NIRMAL/AERO)Collection date: Dec 06, 2021 15:30 Site/Specimen: BLOOD Provider: JELANI SÁNCHEZ Comment on specimen: LAC Test(s) ordered: BLOOD CULTURE AEROBIC. ........ completed: Dec 12, 2021 06:17 * BACTERIOLOGY FINAL REPORT => Dec 12, 2021 06:1 7 TECH CODE: [id number] Bacteriology Remark(s): NO GROWTH IN 5 DAYS =--=--=--=--=--=--=--=--=--=--=--=--=--= --=--=--=--=--=--=--=--=--=--=--=--=-- Performing Laboratory: Bacteriology Report Performed By: [facility] [CLIA# [id number]] [address] [place] [address]
--- OUTSIDE RECORDS SUMMARY | 2022-01-19 09:05 | XMS_ITS ---
DAILY HOSPITALIZATION DATA [facility] Encounter Summary Created on:December 10, 2021 Patient:LUCAS MEEK Sex:Male :1950 Author Organization [facility] Address [address] [place] [id number] Support Name Relationship Address Phone YUSRA MEEK Unavailable [address] [place] [address] YUSRA MEEK Unavailable [address] [place] [facility] [place] [address] CLAY MOSLEY Unavailable Unavailable SJ SANTACRUZ Unavailable [...] MEDICARE MEDICARE PART Jun 18, PART A [id number] DO KALYANI PATIENT (WNR) (M) A 2016 13A 1 UGLAS MEDICARE MEDICARE PART Jun 18, PART A [id number] DO KALYANI PATIENT (WNR) (M) A 2017 VH81 2 LAS MEDICARE MEDICARE PART Jun 18, PART B [id number] DO KALYANI PATIENT (WNR) (M) B 2016 13A 1 UGLAS MEDICARE MEDICARE PART Jun 18, PART B [id number] DO KALYANI PATIENT (WNR) (M) B 2017 VH81 2 UGLAS UNITED MEDICARE MCR(Jun [id number] Luz MEEK PATIENT HEALTHCARE ADVANTAGE NR) 2021 37 0 [facility] (WNR) Selected Encounter This section includes the information on record at [place] for the Encounter. Date/Time Encounter Type Encounter Description Reason Provider Source Dec 10, 2021 08:57 Inpatient Visit DAILY HOSPITALIZATION DATA PM IHE [...] 2022 10:00 AM AMBULATORY - SURGERY [place] [facility] Mar 21, 2022 10:30 [...] The data comes from all [place] treatment [facility]. Test Date/Time Test Type Test Details Facility Name October 31, 2021 07:37 AM Consult Order [facility] Cons [place] D[employer] Operator's Choice November 15, 2021 10:37 AM Consult Order [facility] Cons [place] D[place] Operator's Choice Dec 06, 2021 12:52 PM [...] [place] OUTPATIENT Cons [facility] [place] D[facility] Operator's Choice Jan 15, 2022 10:08 PM Consult Order [facility]-PALLIATIVE CARE Cons [place] D[place] Operator's Choice Lab Results: +/- 30 days [...] Reference Range Comment Dec 15, 2021 [place] P4 GLU,BUN,CREAT,LYTES,CA Speci men Type: PLASMA 06:43 AM [facility] Comment: Tests performed on Catmoji (405) SN:[id number] Ordering Provid er: ISATU TODD Report Released Date/Time: Dec 11, 2021 07:42 AM Reporting Lab: [facility] [address] [facility] [address] Performing Lab: [facility] [address] [facility] [address] UREA NITROGEN 9 7-25 SODIUM 137 135-145 POTASSIUM 3.8 3.5-5.0 CHLORIDE 105 100-110 CARBON DIOXIDE 26 20-30 ANION GAP 6 4-16 GLUCOSE 102 H 65-100 CREATININE 0.64 0.5-1.5 CALCIUM 8.1 L 8.5-10.5 eGFR(CKD-EPI 2020) >90.0 >60 Dec 15, 2021 06:43 AM [facility] CBC PROFILE Sp ecimen Type: BLOOD No comment enter ed. Ordering Provid er: ISATU TODD Report Released Date/Time: Dec 10, 2021 07:22 AM Reporting Lab: [facility] [address] [facility] [address] Performing Lab: [facility] [address] [facility] [address] WBC 5.7 4.5-11.0 RBC 4.22 L 4.23-5.66 [...] ABSOLUTE NRBC 0.00 0-0 Dec 14, 2021 [facility] CYTOGENETIC Specimen Type: ESOPHAGUS 02:59 PM [place] [place] [place] Comment: ~For T est: [place]TOGENETIC FISH[place] [place] ~FISH HER 2 NUE, FFPE See full report in Techulon Image display viewer/tab#LAB-Reference Ordering Provid er: NIURKA MILLER Report Released Date/Time: Dec 21, 2021 12:11 PM Reporting Lab: [facility] [address] [facility] [address] Performing Lab: [facility] CYTOGENETIC FISH[place] [place] comment Dec 14, 2021 [facility] P4 GLU,BUN,CREAT,LYTES,CA Speci men Type: PLASMA 06:27 AM [facility] Comment: Tests performed on Catmoji (405) SN:[id number] Ordering Provid er: ISATU TODD Report Released Date/Time: Dec 11, 2021 07:42 AM Reporting Lab: [facility] [address] [facility] [address] Performing Lab: [facility] [address] [facility] [address] UREA NITROGEN 10 7-25 SODIUM 137 135-145 [...] [facility] [address] [facility] [address] Performing Lab: [facility] [address] [facility] [address] WBC 6.0 4.5-11.0 RBC 4.29 4.23-5.66 HGB [...] ABSOLUTE NRBC 0.00 0-0 Dec 13, 2021 [facility] P4 GLU,BUN,CREAT,LYTES,CA Speci men Type: PLASMA 06:34 AM [facility] Comment: Tests performed on Catmoji (405) SN:[id number] Ordering Provid er: ISATU TODD Report Released Date/Time: Dec 11, 2021 07:42 AM Reporting Lab: [facility] [address] [facility] [address] Performing Lab: [facility] [address] [facility] [address] UREA NITROGEN 12 7-25 SODIUM 136 135-145 [...] [facility] [address] [facility] [address] Performing Lab: [facility] [address] [facility] [address] WBC 5.6 4.5-11.0 RBC 4.28 4.23-5.66 HGB [...] ABSOLUTE NRBC 0.00 0-0 Dec 12, 2021 [facility] P4 GLU,BUN,CREAT,LYTES,CA Speci men Type: PLASMA 06:21 AM [facility] Comment: Tests performed on Catmoji (405) SN:[id number] Ordering Provid er: ISATU TODD Report Released Date/Time: Dec 11, 2021 07:42 AM Reporting [facility]: [facility] [address] [facility] [address] Per[facility]: [facility] [address] [facility] [address] UREA NITROGEN 11 7-25 SODIUM 139 135-145 [...] 2021 07:22 AM Reporting [facility]: [facility] [address] [facility] [address] Performing Lab: [facility] [address] [facility] [address] WBC 5.5 4.5-11.0 RBC 4.37 4.23-5.66 HGB [...] 0.00 0-0 Dec 12, 2021 06:00 AM [facility] MAGNESIUM Sp ecimen Type: PLASMA Comment: Testin g Performed on Catmoji (405) SN:[id number] Ordering Provid er: ISATU TODD Report Released Date/Time: Dec 12, 2021 08:24 AM Reporting Lab: [place] [facility] [address] [facility] [address] Performing Lab: [facility] [place] [facility] [address] [facility] [address] MAGNESIUM 1.8 1.6-2.6 Dec 12, 2021 06:00 AM [employer] PHOSPHORUS Sp ecimen Type: PLASMA Comment: Testin g Performed on Catmoji (405) SN:[id number] Ordering Provid er: ISATU TODD Report Released Date/Time: Dec 12, 2021 08:24 AM Reporting Lab: [place] [facility] [address] [facility] [address] Performing Lab: [place] [facility] [address] [facility] [address] PHOSPHORUS 3.1 2.5-5.0 Dec 11, 2021 06:15 AM Social[facility] [place] [employer] ELECTROLYTES Sp ecimen Type: PLASMA Comment: Tests performed on Catmoji (405) SN:[id number] Ordering Provid er: ISATU TODD Report Released Date/Time: Dec 10, 2021 07:22 AM Reporting Lab: [place] [facility] [address] [facility] [address] Performing Lab: [place] [facility] [address] [facility] [address] SODIUM 137 135-145 POTASSIUM 4.3 3.5-5.0 CHLORIDE 108 100-110 CARBON DIOXIDE 20 20-30 ANION GAP 9 4-16 Dec 11, 2021 06:15 AM [place] [facility] CBC PROFILE Sp ecimen Type: BLOOD Comment: Result s checked Ordering Provid er: ISATU TODD Report Released Date/Time: Dec 10, 2021 07:22 AM Reporting Lab: [place] [facility] [address] [facility] [address] Performing Lab: [facility] [place] [facility] [address] [facility] [address] WBC 5.8 4.5-11.0 RBC 4.37 4.23-5.66 HGB [...] 0.00 0-0 Dec 11, 2021 06:00 AM [facility] PHOSPHORUS Sp ecimen Type: PLASMA Comment: Tests performed on Catmoji (068) SN:[id number] Results checked Ordering Provid er: ISATU TODD Report Released Date/Time: Dec 11, 2021 07:44 AM Reporting Lab: [facility] [address] [facility] [address] Performing Lab: [place] [facility] [address] [facility] [address] PHOSPHORUS 3.0 2.5-5.0 Dec 10, 2021 08:05 AM [place] [facility] MAGNESIUM Sp ecimen Type: PLASMA Comment: [place] [id number] on Dec 10, 2021@08:31 Tests performed on Catmoji (405) SN:[id number] Ordering Provid er: ISATU TODD Report Released Date/Time: Dec 10, 2021 07:22 AM Reporting Lab: [place] [facility] [address] [place] [facility] [place] [address] Performing Lab: [place] [facility] [address] [place] [facility] [place] [address] MAGNESIUM 1.7 1.6-2.6 Dec 10, 2021 08:05 AM [place] UREA NITROGEN Specimen Type: PLASMA [facility] Comment: [place] [id number] on Dec 10, 2021@08:31 Tests performed on Catmoji (405) SN:[id number] Ordering Provid er: ISATU TODD Report Released Date/Time: Dec 10, 2021 07:22 AM Reporting Lab: [place] [facility] [address] [place] [facility] [place] [address] Performing Lab: [place] [facility] [address] [place] [facility] [place] [address] UREA NITROGEN 8 7-25 Dec 10, 2021 08:05 AM [place] [facility] PHOSPHORUS Sp ecimen Type: PLASMA Comment: [place] [id number] on Dec 10, 2021@08:31 Tests performed on Catmoji (405) SN:[id number] Ordering Provid er: ISATU TODD Report Released Date/Time: Dec 10, 2021 07:22 AM Reporting Lab: [place] [facility] [address] [place] [facility] [place] [address] Performing Lab: [place] [facility] [address] [place] [facility] [place] [address] PHOSPHORUS 1.8 L 2.5-5.0 Dec 10, 2021 08:05 AM [place] [facility] GLUCOSE Sp ecimen Type: PLASMA Comment: [place] [id number] on Dec 10, 2021@08:31 Tests performed on Catmoji (405) SN:[id number] Ordering Provid er: ISATU TODD Report Released Date/Time: Dec 10, 2021 07:22 AM Reporting Lab: [place] [facility] [address] [facility] [address] Performing Lab: [place] [facility] [address] [facility] [address] GLUCOSE 144 H 65-100 Dec 10, 2021 08:05 AM [place] [facility] ELECTROLYTES Sp ecimen Type: PLASMA Comment: [place] [id number] on Dec 10, 2021@08:31 Tests performed on Catmoji (405) SN:[id number] Ordering Provid er: ISATU TODD Report Released Date/Time: Dec 10, 2021 07:22 AM Reporting Lab: [place] [facility] [address] [facility] [address] Performing Lab: [place] [facility] [address] [facility] [address] SODIUM 139 135-145 POTASSIUM 3.7 3.5-5.0 CHLORIDE 107 100-110 CARBON DIOXIDE 24 20-30 ANION GAP 8 4-16 Dec 10, 2021 08:05 [place] CREATININE WITH eGFR Specime n Type: PLASMA AM [facility] PANEL Comment: [place] [id number] on Dec 10, 2021@08:31 Tests performed on Pham Enable Injections (405) SN:[id number] Ordering Provid er: ISATU TODD Report Released Date/Time: Dec 10, 2021 07:22 AM Reporting Lab: [place] [facility] [address] [facility] [address] Performing Lab: [place] [facility] [address] [facility] [address] CREATININE 0.78 0.5-1.5 eGFR(CKD-EPI 2020) >90.0 >60 Dec 10, 2021 08:05 AM [place] [facility] CBC PROFILE Sp ecimen Type: BLOOD No comment enter ed. Ordering Provid er: ISATU TODD Report Released Date/Time: Dec 10, 2021 07:22 AM Reporting Lab: [place] [facility] [address] [facility] [address] Performing Lab: [place] [facility] [address] [facility] [address] WBC 7.0 4.5-11.0 RBC 4.54 4.23-5.66 HGB [...] 0.00 0-0 Dec 10, 2021 08:05 AM [facility] CALCIUM Sp ecimen Type: PLASMA Comment: [place] [id number] on Dec 10, 2021@08:31 Tests performed on Catmoji (405) SN:[id number] Ordering Provid er: ISATU TODD Report Released Date/Time: Dec 10, 2021 07:22 AM Reporting [facility]: [facility] [address] [facility] [address] Performing Lab: [facility] [address] [facility] [address] CALCIUM 8.3 L 8.5-10.5 Dec 09, 2021 06:46 AM [place] [facility] MAGNESIUM Sp ecimen Type: PLASMA Comment: Tests performed on Catmoji (405) SN:[id number] Ordering Provid er: ISATU TODD Report Released Date/Time: Dec 08, 2021 10:23 AM Reporting Lab: [facility] [address] [facility] [address] Performing Lab: [facility] [address] [facility] [address] MAGNESIUM 1.6 1.6-2.6 Dec 09, 2021 [facility] P4 GLU,BUN,CREAT,LYTES,CA Speci men Type: PLASMA 06:46 AM [facility] Comment: Tests performed on Catmoji (405) SN:[id number] Ordering Provid er: ISATU TODD Report Released Date/Time: Dec 08, 2021 05:00 PM Reporting Lab: [facility] [address] [facility] [address] Performing Lab: [facility] [address] [facility] [address] UREA NITROGEN 6 L 7-25 SODIUM 134 [...] [facility] [address] [facility] [address] Performing Lab: [facility] [address] [facility] [address] WBC 7.1 4.5-11.0 RBC 4.40 4.23-5.66 HGB [...] 0.00 0-0 Dec 08, 2021 06:39 AM [place] [facility] MAGNESIUM Sp ecimen Type: PLASMA Comment: Testin g Performed on Catmoji (405) SN:[id number] Ordering Provid er: ISATU TODD Report Released Date/Time: Dec 07, 2021 10:32 AM Reporting Lab: [facility] [address] [facility] [address] Performing Lab: [facility] [address] [facility] [address] MAGNESIUM 1.5 L 1.6-2.6 Dec 08, 2021 [place] T P4 GLU,BUN,CREAT,LYTES,CA Speci men Type: PLASMA 06:39 AM [facility] Comment: Testin g Performed on Catmoji (405) SN:[id number] Ordering Provid er: ISATU TODD Report Released Date/Time: Dec 07, 2021 10:32 AM Reporting Lab: [place] [facility] [address] [facility] [address] Performing Lab: [facility] [address] [facility] [address] UREA NITROGEN 6 L 7-25 SODIUM 136 135-145 POTASSIUM 3.3 L 3.5-5.0 CHLORIDE 104 100-110 CARBON DIOXIDE 22 20-30 ANION GAP 10 4-16 GLUCOSE 133 H 65-100 CREATININE 0.76 0.5-1.5 CALCIUM 8.4 L 8.5-10.5 eGFR(CKD-EPI 2020) >90.0 >60 Dec 08, 2021 06:39 AM [place] [facility] CBC PROFILE Sp ecimen Type: BLOOD No comment enter ed. Ordering Provid er: ISATU TODD Report Released Date/Time: Dec 07, 2021 10:32 AM Reporting Lab: [facility] [address] [facility] [address] Performing Lab: [facility] [address] [facility] [address] WBC 8.4 4.5-11.0 RBC 4.75 4.23-5.66 HGB [...] ABSOLUTE NRBC 0.00 0-0 Dec 07, 2021 [facility] P4 GLU,BUN,CREAT,LYTES,CA Speci men Type: PLASMA 06:42 AM [facility] Comment: Tests performed on Catmoji (405 SN:[id number] Ordering Provid er: PORFIRIO WALTERS Report Released Date/Time: Dec 06, 2021 06:57 PM Reporting Lab: [facility] [address] [facility] [address] Performing Lab: [facility] [address] [facility] [address] UREA NITROGEN 9 7-25 SODIUM 135 135-145 POTASSIUM 3.5 3.5-5.0 CHLORIDE 103 100-110 CARBON DIOXIDE 22 20-30 ANION GAP 10 4-16 GLUCOSE 92 65-100 CREATININE 0.73 0.5-1.5 CALCIUM 8.0 L 8.5-10.5 eGFR(CKD-EPI 2020) >90.0 >60 Dec 07, 2021 06:42 [place] LIVER PROFILE Specimen Typ e: PLASMA AM [facility] Comment: Tests performed on [employer] Psychiatric Clinician (405) SN:[id number] Ordering Provid er: PORFIRIO WALTERS Report Released Date/Time: Dec 06, 2021 06:57 PM Reporting Lab: [facility] [address] [facility] [address] Performing Lab: [facility] [address] [facility] [address] PROTEIN, TOTAL 5.7 L 6.0-8.5 ALBUMIN 2.4 L 3.2-5.0 BILIRUBIN, TOTAL 0.4 0.2-1.2 ALKALINE PHOSPHATASE 109 40-150 ALT(SGPT) 10 7-52 AST(SGOT) 15 5-34 FIB-4 SCORE 1.92 <2.67 Dec 07, 2021 06:42 AM [facility] CBC PROFILE Specimen Type: BLOOD [facility] No comment enter ed. Ordering Provid er: PORFIRIO WALTERS Report Released Date/Time: Dec 06, 2021 06:57 PM Reporting Lab: [facility] [address] [facility] [address] Per[facility] [address] [facility] [address] WBC 5.7 4.5-11.0 RBC 4.15 L 4.23-5.66 [...] [facility] %) AUTOMATED Comment: Tests performed on Catmoji (405) SN:[id number] Ordering Provid er: ISATU TODD Report Released Date/Time: Dec 07, 2021 10:28 AM Reporting Lab: [place] [facility] [address] [facility] [address] Performing Lab: [place] [facility] [address] [facility] [address] RETICULOCYTES (%) AUTOMATED 1.23 0. 6-2.0 RETICULOCYTES (ABS) AUTOMATED 0.052 0.030-0.090 Dec 06, 2021 09:45 [place] MRSA SURVL NARES Specimen Ty pe: NARES PM [facility] DNA No comment enter ed. Ordering Provid er: ALVARO VARGHESE Report Released Date/Time: Dec 07, 2021 02:20 AM Reporting Lab: [place] [facility] [address] [facility] [address] Performing Lab: [place] [facility] [address] [facility] [address] MRSA SURVL NARES DNA NEGATIVE NEGATIVE Dec 06, 2021 06:00 [place] URINALYSIS W/REFLEX TO Speci men Type: URINE PM [facility] CULTURE No comment enter ed. Ordering Provid er: JELANI SÁNCHEZ Report Released Date/Time: Dec 06, 2021 11:57 AM Reporting Lab: [place] [facility] [address] [facility] [address] Performing Lab: [place] [facility] [address] [facility] [address] URINE COLOR Arlin YELLOW SPECIFIC GRAVITY 1.029 [...] 21, [place] Comment: https://www.cdc.gov/coronavirus/2019-ncov/cases-updates/variant- surveillance/variant-info.html The [employer] SARS CoV 2 [employer] Research Assay-GX is a next-generation sequencing (NGS) assa 2021 [facility] SEQUENCING y that determine s the complete genome sequence of the SARS-CoV-2 virus. The assay contains variant-tolerant primers to broaden and improve the coverage for variant detection and increase the sensitivity 12:00 [facility] PNL(WH) of the panel to enable detection from lower viral titer samples. The assay is run on the [employer] Sequencer, which performs automated library preparation, sequencing, analysis, and reporting. PM The sequence an alysis includes determination of viral phylogenetic lineage by comparison to the reference strain Wuhan-Hu-1, GenBank: [id number]. Sequence determination may not be possible owing [...] and its performance characteristics determined by the [facility], which is certified under the Clinical Laboratory Improveme nt Amendments (C MARCO) as qualified to perform high complexity clinical laboratory testing. This test is validated for clinical use at [facility] and should not be regarded as investigational or for research. The FDA does not require this test to go through premarket FDA review, and therefore it has not been cleared or approved by the FDA. This report was reviewed and approved by the on-service pathologist. Ordering Provid er: JELANI SÁNCHEZ Report Released Date/Time: Dec 06, 2021 01:13 PM Reporting Lab: [facility] [address] [facility] [address] Per[facility]: [facility] [address] [facility] [place] [address] SARS-CoV-2 CLADE() 22C (OMICRON) SARS-CoV-2 LINEAGE() BA.2.12.1 Dec 06, 2021 12:00 [facility] COVID-19 AG SCREEN Specimen Type: NASAL CAVITY PM [facility] PANEL BINAX(405) Comment: Testi ng Performed By: Mike Briscoe Ordering Provid er: JELANI SÁNCHEZ Report Released Date/Time: Dec 08, 2021 08:23 AM Reporting Lab: [facility] [address] [facility] [address] Performing Lab: [facility] [address] [facility] [address] COVID-19 AG SCRN(wrj BINAX) POSITIVE HH NE G Dec 06, 2021 12:00 PM [facility] LIVER PROFILE Sp ecimen Type: PLASMA Comment: Testin g Performed on Pham Psychiatric Clinician (405) SN:[id number] Ordering Provid er: JELANI SÁNCHEZ Report Released Date/Time: Dec 06, 2021 11:57 AM Reporting Lab: [facility] [address] [facility] [address] Performing Lab: [facility] [address] [facility] [address] PROTEIN, TOTAL 6.6 6.0-8.5 ALBUMIN 2.8 L 3.2-5.0 BILIRUBIN, TOTAL 0.6 0.2-1.2 ALKALINE PHOSPHATASE 134 40-150 ALT(SGPT) 13 7-52 AST(SGOT) 18 5-34 FIB-4 SCORE 1.94 <2.67 Dec 06, 2021 12:00 PM [facility] TROPONIN II Sp ecimen Type: PLASMA Comment: Tests performed on Pham Psychiatric Clinician (405) SN:[id number] Ordering Provid er: JELANI SÁNCHEZ Report Released Date/Time: Dec 06, 2021 11:57 AM Reporting Lab: [facility] [address] [facility] [address] Performing Lab: [facility] [address] [facility] [address] TROPONIN II 0.03 0.00-0.29 Dec 06, 2021 [facility] P4 GLU,BUN,CREAT,LYTES,CA Speci men Type: PLASMA 12:00 PM [facility] Comment: Testin g Performed on Pham Psychiatric Clinician (405) SN:[id number] Ordering Provid er: JELANI SÁNCHEZ Report Released Date/Time: Dec 06, 2021 11:57 AM Reporting Lab: [place] [facility] [address] [facility] [address] Performing Lab: [facility] [address] [facility] [address] UREA NITROGEN 13 7-25 SODIUM 138 135-145 POTASSIUM 3.8 3.5-5.0 CHLORIDE 103 100-110 CARBON DIOXIDE 23 20-30 ANION GAP 12 4-16 GLUCOSE 105 H 65-100 CREATININE 0.90 0.5-1.5 CALCIUM 8.7 8.5-10.5 eGFR(CKD-EPI 2020) >90.0 >60 Dec 06, 2021 12:00 PM [facility] BNP(P) Sp ecimen Type: PLASMA Comment: Tests performed on Pham Psychiatric Clinician (405) SN:[id number] Ordering Provid er: JELANI SÁNCHEZ Report Released Date/Time: Dec 06, 2021 11:57 AM Reporting Lab: [facility] [address] [facility] [address] Performing Lab: [place] [facility] [address] [facility] [address] BNP(P) 224.8 H 10-100 Dec 06, 2021 [place] COVID-19+FLU/RSV DIAGNOSTIC Spe cimen Type: NASOPHARYNX 12:00 PM [facility] PANEL(405) Comment: Tests performed on LiveGOxpert (405) Critical results called to and read back by: ALESHIA WILKINSON RN 12/06/21 @ 1312 Ordering Provid er: JELANI SÁNCHEZ Report Released Date/Time: Dec 06, 2021 11:57 AM Reporting Lab: [place] [facility] [address] [facility] [address] Performing Lab: [place] [facility] [address] [facility] [address] FLU A(PCR) NEGATIVE NEGATIVE FLU B(PCR) NEGATIVE NEGATIVE RSV(PCR) NEGATIVE NEGATIVE COVID-19([id number]) DETECTED HH NO T DETECTED Dec 06, 2021 12:00 PM [facility] Sp ecimen Type: BLOOD No comment enter ed. Ordering Provid er: JELANI SÁNCHEZ Report Released Date/Time: Dec 06, 2021 11:57 AM Reporting Lab: [facility] [address] [facility] [address] Performing Lab: [facility] [address] [facility] [address] WBC 7.2 4.5-11.0 RBC 4.86 4.23-5.66 HGB [...] 94 122/75 18 /min 97 % 0 [place] 2021 09:00 /min mm[Hg] R[facility] PM T [facility] Dec 10, 0 [place] 2021 08:57 RIVER PM T [facility] Dec 10, 0 [place] 2021 04:17 R[place] PM T [facility] Dec 10, 97.8 F 93 125/74 20 /min 95 % 0 [place] 2021 01:40 /min mm[Hg] RIVER PM T [facility] Dec 10, 231.9 32 [place] 2021 10:22 lb RIVER AM [facility] [...] took place. Date/Time Smoking Status/Tobacco Use Comment [facility] [place] [facility] Apr 01, 2020 01:16 PM QUIT TOBACCO USE 1-7 YEARS AGO [facility] Mar 24, 2020 03:00 PM QUIT TOBACCO USE 1-7 YEARS AGO [facility] Feb 21, 2019 04:11 PM [...] [facility] May 01, 2016 03:11 PM [...] W/WO CONTRAST: MARYELLEN LONG LUCAS LARES N [id number] -1950 [facility] Exm Date: DEC 13, 2021@12:57 Req Phys: ISATU TODD Loc: OP Unknown/0 12-15-2021@13:20 Img Loc: MRI IMAGING (OOS) Service: [facility] MEDICINE (Case [id number] COMPLETE) MRI ABDOMEN W/WO CONTRAST (M RI Detailed) CPT:59228 Reason for Study: further characterization of a [...] new lyphadenopathy REQUESTING MD: Isatu Todd PAGER: [phone] PHONE: [phone] Weight: 232.2 lb [105.32 kg] (12/12/2021 05:00) [...] patient will need to arrange for a medical driver to take him/her home after the [...] 15, 2021 Date Verified: DEC 15, 2021 Public Health Analyst E-Sig:/ES/MARYELLEN LONG Report: MRI ABDOMEN W/WO [...] MALIGNANCY Primary Interpreting Staff: Staff AMELIA THOMAS (Public Health Analyst) / Dec 10, 2021 09:[address] ABDOMEN & PELVIS: RADIOLOGY,OUTSIDE [facility] LUCAS MEEK N [id number] -1950 M SERVICE [facility] Exm Date: DEC 10, 2021@09:30 Req Phys: ISATU TODD Loc: MED/12-10@10:57 Img Loc: CT SCAN (OOS) Service: [facility] MEDICINE (Case [id number] COMPLETE) CT ABD & PELVIS WITHOUT CONT RAST (CT Detailed) CPT:07986 Reason for Study: 71 yo male with [...] RADIOLOGY [phone] to speak to the appropriate fill technician. Report Status: Verified Date Reported: DEC 10, 2021 Date Verified: DEC 10, 2021 Public Health Analyst E-Sig: Report: EXAM: CT abdomen and [...] ph nodes. READING PHYSICIAN: Ramone Munoz D.O. [phone] 12/10/2021 10:55 EDT [facility] National Teleradiology Program [phone] (For Medical Practitioner Use Only ) [address], [facility] [address], [address] [place] [address] Attention Patients / Veterans: If you have ques tions or concerns about these test results, please contact [facility] or primary care team. Primary Diagnostic Code: SIGNIFICANT ABNORMALIT Y, ATTN NEEDED Primary Interpreting Staff: RADIOLOGY,OUTSIDE SERVICE, Staff Physician / Dec 09, 2021 07:34 AM BASW (MODIFIED): JESSIE CHENEY [facility] LUCAS MEEK N [id number] -1950 M [facility] Exm Date: DEC 09, 2021@07:34 Req Phys: ISATU TODD Loc: 1S MED/12-09@11:26 Img Loc: XRAY (OOS) Service: [facility] MEDICINE (Case [id number] COMPLETE) BASW (MODIFIED) (RAD Detaile d) CPT:87448 Contrast Media : Barium Reason for Study: dysphagia ?esophageal spasm Clinical History: Report Status: Verified Date Reported: DEC 09, 2021 Date Verified: DEC 09, 2021 Public Health Analyst E-Sig:/ES/JESSIE CHENEY Report: BASW (MODIFIED) , 12/09/2021 [...] REQUIRED Primary Interpreting Staff: JESSIE CHENEY, RADIOLOGIST (Public Health Analyst) /TLC Dec 06, 2021 12:[address] CHEST (INCLUDES ADRENALS): JESSIE CHENEY [facility] LUCAS MEEK N [id number] -1950 M [facility] Exm Date: DEC 06, 2021@12:59 Req Phys: GONZALOJELANI Loc: [facility] ED DAYS M 1RD (Req'g Loc) Img Loc: CT SCAN (OOS) Service: Unknown (Case [id number] COMPLETE) CT THORAX W/O CONT (CT Detai led) CPT:79355 Reason for Study: Opacification right chest Clinical History: No contrast allergy BUN: 13 (12/06/21 12:00) CREATI: 0.90 (12/06/21 12:00) eGFR 05/16/21 09:43 52 L Weight: 232.6 lb [105.51 kg] (12/06/2021 11:40) BODY MASS INDEX - NO HEIGHTS FOUND Pager number: [phone] STAT orders MUST be called t o RADIOLOGY [phone] to speak to the appropriate fill technician. Indications - Other: Opacification right chest, covid positive, lung cancer histo Report Status: Verified Date Reported: DEC 06, 2021 Date Verified: DEC 06, 2021 Public Health Analyst E-Sig:/ES/JESSIE CHENEY Report: CT THORAX W/O [...] REQUIRED Primary Interpreting Staff: JESSIE CHENEY, RADIOLOGIST (Public Health Analyst) Primary Interpreting Resident: PRINCE CHAMPION, Resident /BR Dec 06, 2021 11:58 AM CHEST SINGLE VIEW: JESSIE CHENEY DOUGLAS N [id number] -1950 M [facility] Exm Date: DEC 06, 2021@11:58 Req Phys: JELANI SÁNCHEZ Pat Loc: [facility] ED DAYS M 1RD (Req'g Loc) Img Loc: XRAY (OOS) Service: Unknown (Case [id number] COMPLETE) CHEST SINGLE VIEW (RAD Detai led) CPT:03278 Proc Modifiers : PORTABLE EXAM Reason for Study: SOB, home covid test positive Clinical History: Report Status: Verified Date Reported: DEC 06, 2021 Date Verified: DEC 06, 2021 Public Health Analyst E-Sig:/ES/JESSIE CHENEY Report: Exam type: Chest [...] REQUIRED Primary Interpreting Staff: JESSIE CHENEY, RADIOLOGIST (Public Health Analyst) /TLC Pathology Reports: +/- 30 days [...] [facility]TO[facility] [CLIA# [id number]] [address] [place] [address] - - - - - - [...] automatically d ocumented from SURGERY package case #[id number] Field (#32) PRINCIPAL PRE-OP DIAGNOSIS, (#.72) OTHER [...] automatically d ocumented from SURGERY package case #[id number] Field (#34) PRINCIPAL POST-OP DIAG, (#.74) OTHER [...] Label: Lucas Meek Paperwork: Lucas Meek Cassette: [id number];..;KALYANI;.;405;[id number] Specimen is labeled: ES bx Received in formalin are several pieces of pale boyd and brown tissue, 1.2 x 0.7 cm in aggregate. Submitted entirely in 1 cassette [id number];..;KALYANI;.;405;[id number] SAW 12/15/2021 Microscopic exam: *+* MODIFIED REPORT *+* (Last modified: JAN 03, 2022@09:30:20 typed by NIURKA WADDELL) DIAGNOSIS: A. 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 Kendell long. TIARA Coombs was notified on 12/21/21. Modified on 01/03/22 to include report from [facility] stating that tumor is NEGATIVE for her2/ matheus amplification. The attending pathologist who signature mansoor ears on this report has reviewed all diagnostic slides and has edited t he gross and/or microscopic portion of this report in rendering the final pathologic diagnosis. [address] [address] CPT: 25866 /emely/ NIURKA Yeung MD Signed Jan 03, 2022@10:28 Performing Laboratory: Surgical Pathology Report Performed By: [facility] MONTO[facility] [CLIA# [id number]] [address] [place] [address] $FTR - - - - - [...] - - LUCAS MEEK STANDARD FORM 515 ID:[id number] SEX:M :1950 AGE: 71 LOC: [facility] END PCP: Isatu Todd /emely/ NIURKA MILLER Staff Signed: 01/03/2022 10:28 Dec 21, 2021 11:46 AM LR SURGICAL PATHOLOGY REPORT: STEFANY MILLER [facility] LOCAL TITLE: LR SURGICAL PATHOLOGY REPORT [facility] STANDARD TITLE: PATHOLOGY REPORT DATE OF NOTE: DEC 21, 2021@11:46:59 ENTRY DATE: DEC 21, 2021@11:46:59 AUTHOR: NIURKA MILLER EXP COSIGNER: URGENCY: STATUS: COMPLETED $APHDR Reporting Lab: [facility] [CLIA# [id number]] [address] [place] [facility] [place] [address] - - - - - - [...] automatically d ocumented from SURGERY package case #[id number] Field (#32) PRINCIPAL PRE-OP DIAGNOSIS, (#.72) OTHER [...] automatically d ocumented from SURGERY package case #[id number] Field (#34) PRINCIPAL POST-OP DIAG, (#.74) OTHER [...] Label: Lucas Meek Paperwork: Lucas Meek Cassette: [id number];..;KALYANI;.;230;[id number] Specimen is labeled: ES bx Received in formalin are several pieces of pale boyd and brown tissue, 1.2 x 0.7 cm in aggregate. Submitted entirely in 1 cassette [id number];..;KALYANI;.;405;[id number] SAW 12/15/2021 Microscopic exam: DIAGNOSIS: A. 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 Kendell long. TIARA Coombs was notified on 12/21/21. The attending pathologist who signature mansoor ears on this report has reviewed all diagnostic slides and has edited t he gross and/or microscopic portion of this report in rendering the final pathologic diagnosis. [address] [address] CPT: 37612 /emely/ NIURKA Yeung MD Signed Dec 21, 2021@11:46 Performing Laboratory: Surgical Pathology Report Performed By: [facility] [CLIA# [id number]] [address] [place] [address] $FTR - - - - - [...] - - LUCAS MEEK STANDARD FORM 515 ID:[id number] SEX:M :1950 AGE: 71 LOC: [facility] END PCP: Isatu Todd /charmaine Yeung MD Signed: 12/21/2021 11:46 Dec 06, 2021 03:30 PM LR MICROBIOLOGY REPORT: [facility] Reporting Lab: [facility] [CLIA# [id number]] [address] [place] [address] Accession [UID]: [id number] [[id number]] Receiv ed: Dec 06, 2021@16:14 Collection sample: BLOOD CUL T BOTTLE(NIRMAL/AERO)Collection date: Dec 06, 2021 15:30 Site/Specimen: BLOOD Provider: JELANI SÁNCHEZ Comment on specimen: LAC Test(s) ordered: BLOOD CULTURE ANAEROBI C....... completed: Dec 12, 2021 06:18 * BACTERIOLOGY FINAL REPORT => Dec 12, 2021 06:1 8 TECH CODE: [id number] Bacteriology Remark(s): NO GROWTH IN 5 DAYS =--=--=--=--=--=--=--=--=--=--=--=--=--= --=--=--=--=--=--=--=--=--=--=--=--=-- Performing Laboratory: Bacteriology Report Performed By: [facility] [CLIA# [id number]] [address] [place] [address] Dec 06, 2021 03:30 PM LR MICROBIOLOGY REPORT: [facility] Reporting Lab: [facility] [CLIA# [id number]] [address] [place] [address] Accession [UID]: [id number] [[id number]] Receiv ed: Dec 06, 2021@16:14 Collection sample: BLOOD CUL T BOTTLE(NIRMAL/AERO)Collection date: Dec 06, 2021 15:30 Site/Specimen: BLOOD Provider: JELANI SÁNCHEZ Comment on specimen: LAC Test(s) ordered: BLOOD CULTURE AEROBIC. ........ completed: Dec 12, 2021 06:17 * BACTERIOLOGY FINAL REPORT => Dec 12, 2021 06:1 7 TECH CODE: [id number] Bacteriology Remark(s): NO GROWTH IN 5 DAYS =--=--=--=--=--=--=--=--=--=--=--=--=--= --=--=--=--=--=--=--=--=--=--=--=--=-- Performing Laboratory: Bacteriology Report Performed By: [facility] [CLIA# [id number]] [address] [place] [address]
--- OUTSIDE RECORDS SUMMARY | 2022-01-19 09:05 | XMS_ITS ---
DAILY HOSPITALIZATION DATA [facility] Encounter Summary Created on:December 10, 2021 Patient:LUCAS MEEK Sex:Male :1950 Author Organization [facility] Address [address] [place] [id number] Support Name Relationship Address Phone YUSRA MEEK Unavailable [address] [place] [address] YUSRA MEEK Unavailable [address] [place] [address] CLAY MOSLEY Unavailable Unavailable SJ SANTACRUZ Unavailable [...] MEDICARE MEDICARE PART Jun 18, PART A [id number] DO KALYANI PATIENT (WNR) (M) A 2016 13A 1 U[place]AS MEDICARE MEDICARE PART Jun 18, PART B [id number] DO KALYANI PATIENT (WNR) (M) B 2016 13A 1 [place] MEDICARE MEDICARE PART Jun 18, PART A [id number] KALYANIDO PATIENT (WNR) (M) A 2017 VH81 2 [place] MEDICARE MEDICARE PART Jun 18, PART B [id number] DO KALYANI PATIENT (WNR) (M) B 2017 VH81 2 [place] UNITED MEDICARE MCR(Jun 18 [id number] Luz MEEK PATIENT HEALTHCARE ADVANTAGE NR) 2021 37 0 [facility] (WNR) Selected Encounter This section includes the information on record at [place] for the Encounter. Date/Time Encounter Type Encounter Description Reason Provider Source Dec 10, 2021 09:00 Inpatient Visit DAILY HOSPITALIZATION DATA PM IHE [...] [place] [facility] Jan 06, 2022 02:00 PM [place] [facility] Jan 10, 2022 11:30 AM [facility]BULAT[facility] - MEDICINE [facility] Jan 24, 2022 08:00 AM [place] [facility] Feb 21, 2022 10:00 AM [place] [facility] Mar 21, [...] The data comes from all [place] treatment [facility]. Test Date/Time Test Type Test Details Facility Name October 31, 2021 07:37 AM Consult Order [facility]ITY [facility]ARE-EGD [facility] Cons Stator [employer] [facility] November 15, 2021 10:37 AM Consult Order [facility] CARE-PODIATRY Cons Stator [employer] Dec 06, 2021 12:52 PM [...] [place] OUTPATIENT Cons [facility] Stator [employer] Choice Jan 15, 2022 10:08 PM Consult Order [facility] CARE-PALLIATIVE CARE Cons Stator [employer] Washer's Choice Lab Results: +/- 30 days [...] Reference Range Comment Dec 15, 2021 [place] P4 GLU,BUN,CREAT,LYTES,CA Speci men Type: PLASMA 06:43 AM [facility] Comment: Tests performed on [employer] (405) SN:[id number] Ordering Provid er: ISATU TODD Report Released Date/Time: Dec 11, 2021 07:42 AM Reporting Lab: [facility] [address] [facility] [address] Performing Lab: [facility] [address] [facility] [address] UREA NITROGEN 9 7-25 SODIUM 137 135-145 POTASSIUM 3.8 3.5-5.0 CHLORIDE 105 100-110 CARBON DIOXIDE 26 20-30 ANION GAP 6 4-16 GLUCOSE 102 H 65-100 CREATININE 0.64 0.5-1.5 CALCIUM 8.1 L 8.5-10.5 eGFR(CKD-EPI 2020) >90.0 >60 Dec 15, 2021 06:[address] [facility] CBC PROFILE Sp ecimen Type: BLOOD No comment enter ed. Ordering Provid er: ISATU TODD Report Released Date/Time: Dec 10, 2021 07:22 AM Reporting Lab: [facility] [address] [facility] [address] Performing Lab: [facility] [address] [facility] [address] WBC 5.7 4.5-11.0 RBC 4.22 L 4.23-5.66 [...] ABSOLUTE NRBC 0.00 0-0 Dec 14, 2021 [facility] CYTOGENETIC Specimen Type: ESOPHAGUS 02:59 PM [facility]) Comment: ~For T est: CYTOGENETIC FISH([facility]) ~FISH HER 2 NUE, FFPE See full report in YongChe Image display viewer/tab#LAB-Reference Ordering Provid er: NIURKA MILLER Report Released Date/Time: Dec 21, 2021 12:11 PM Reporting Lab: [facility] [address] [facility] [address] Performing Lab: [facility] CYTOGENETIC FISH([facility]) comment Dec 14, 2021 [facility] P4 GLU,BUN,CREAT,LYTES,CA Speci men Type: PLASMA 06:27 AM [facility] Comment: Tests performed on [employer] (405) SN:[id number] Ordering Provid er: ISATU TODD Report Released Date/Time: Dec 11, 2021 07:42 AM Reporting Lab: [facility] [address] [facility] [address] Performing Lab: [facility] [address] [facility] [address] UREA NITROGEN 10 7-25 SODIUM 137 135-145 [...] Lab: [facility] [address] [facility] [address] Performing Lab: [facility] [address] [facility] [address] WBC 6.0 4.5-11.0 RBC 4.29 4.23-5.66 HGB [...] ABSOLUTE NRBC 0.00 0-0 Dec 13, 2021 [facility] P4 GLU,BUN,CREAT,LYTES,CA Speci men Type: PLASMA 06:34 AM [facility] Comment: Tests performed on [employer] (405) SN:[id number] Ordering Provid er: ISATU TODD Report Released Date/Time: Dec 11, 2021 07:42 AM Reporting Lab: [facility] [address] [facility] [address] Performing Lab: [facility] [address] [facility] [address] UREA NITROGEN 12 7-25 SODIUM 136 135-145 [...] Lab: [facility] [address] [facility] [address] Performing Lab: [facility] [address] [facility] [address] WBC 5.6 4.5-11.0 RBC 4.28 4.23-5.66 HGB [...] ABSOLUTE NRBC 0.00 0-0 Dec 12, 2021 [facility] P4 GLU,BUN,CREAT,LYTES,CA Speci men Type: PLASMA 06:21 AM [facility] Comment: Tests performed on [employer] (405) SN:[id number] Ordering Provid er: ISATU TODD Report Released Date/Time: Dec 11, 2021 07:42 AM Reporting Lab: [facility] [address] [facility] [address] Performing Lab: [facility] [address] [facility] [address] UREA NITROGEN 11 7-25 SODIUM 139 135-145 [...] 07:22 AM Reporting Lab: [facility] [address] [facility] [address] Performing Lab: [facility] [address] [facility] [address] WBC 5.5 4.5-11.0 RBC 4.37 4.23-5.66 HGB [...] 0.00 0-0 Dec 12, 2021 06:00 AM PheedT [facility] PHOSPHORUS Sp ecimen Type: PLASMA Comment: Testin g Performed on [employer] (405) SN:[id number] Ordering Provid er: ISATU TODD Report Released Date/Time: Dec 12, 2021 08:24 AM Reporting Lab: [place] [employer] [facility] [address] [facility] [address] Performing Lab: [place] [employer] [address] [facility] [address] PHOSPHORUS 3.1 2.5-5.0 Dec 12, 2021 06:00 AM PheedT [employer] MAGNESIUM Sp ecimen Type: PLASMA Comment: Testin g Performed on [employer] (405) SN:[id number] Ordering Provid er: ISATU TODD Report Released Date/Time: Dec 12, 2021 08:24 AM Reporting Lab: [place] [employer] [address] [facility] [address] Performing Lab: [place] [employer] [facility] [address] [facility] [address] MAGNESIUM 1.8 1.6-2.6 Dec 11, 2021 06:15 AM PheedT [employer] ELECTROLYTES Sp ecimen Type: PLASMA Comment: Tests performed on [employer] (405) SN:[id number] Ordering Provid er: ISATU TODD Report Released Date/Time: Dec 10, 2021 07:22 AM Reporting Lab: [place] [employer] [address] [facility] [address] Performing Lab: [place] [employer] [facility] [address] [facility] [address] SODIUM 137 135-145 POTASSIUM 4.3 3.5-5.0 CHLORIDE 108 100-110 CARBON DIOXIDE 20 20-30 ANION GAP 9 4-16 Dec 11, 2021 06:15 AM [place] [employer] [facility] CBC PROFILE Sp ecimen Type: BLOOD Comment: Result s checked Ordering Provid er: ISATU TODD Report Released Date/Time: Dec 10, 2021 07:22 AM Reporting Lab: [place] [employer] [facility] [address] [facility] [address] Performing Lab: [place] [facility] [address] [facility] [address] WBC 5.8 4.5-11.0 RBC 4.37 4.23-5.66 HGB [...] ecimen Type: PLASMA Comment: Tests performed on [employer] (748) SN:[id number] Results checked Ordering Provid er: ISATU TODD Report Released Date/Time: Dec 11, 2021 07:44 AM Reporting Lab: [place] [facility] [address] [facility] [address] Performing Lab: [place] [facility] [facility] [address] [facility] [address] PHOSPHORUS 3.0 2.5-5.0 Dec 10, 2021 08:05 AM [place] [facility] MAGNESIUM Sp ecimen Type: PLASMA Comment: [place] [id number] on Dec 10, 2021@08:31 Tests performed on [employer] (405) SN:[id number] Ordering Provid er: ISATU TODD Report Released Date/Time: Dec 10, 2021 07:22 AM Reporting Lab: [place] [facility] [address] [facility] [place] [address] Performing Lab: [place] [facility] [address] [facility] [place] [address] MAGNESIUM 1.7 1.6-2.6 Dec 10, 2021 08:05 AM [place] [facility] PHOSPHORUS Sp ecimen Type: PLASMA Comment: [place] [id number] on Dec 10, 2021@08:31 Tests performed on [employer] (405) SN:[id number] Ordering Provid er: ISATU TODD Report Released Date/Time: Dec 10, 2021 07:22 AM Reporting Lab: [place] [facility] [address] [facility] [place] [address] Performing Lab: [place] [facility] [address] [facility] [place] [address] PHOSPHORUS 1.8 L 2.5-5.0 Dec 10, 2021 08:05 AM [place] UREA NITROGEN Specimen Type: PLASMA [facility] Comment: [place] [id number] on Dec 10, 2021@08:31 Tests performed on [employer] (405) SN:[id number] Ordering Provid er: ISATU TODD Report Released Date/Time: Dec 10, 2021 07:22 AM Reporting Lab: [place] [facility] [address] [facility] [place] [address] Performing Lab: [place] [facility] [address] [facility] [place] [address] UREA NITROGEN 8 7-25 Dec 10, 2021 08:05 [place] CREATININE WITH eGFR Specime n Type: PLASMA AM [facility] PANEL Comment: [place] [id number] on Dec 10, 2021@08:31 Tests performed on [employer] (405) SN:[id number] Ordering Provid er: ISATU TODD Report Released Date/Time: Dec 10, 2021 07:22 AM Reporting Lab: [place] [facility] [address] [facility] [address] Performing Lab: [place] [facility] [address] [facility] [address] CREATININE 0.78 0.5-1.5 eGFR(CKD-EPI 2020) >90.0 >60 Dec 10, 2021 08:05 AM [place] [facility] GLUCOSE Sp ecimen Type: PLASMA Comment: [place] [id number] on Dec 10, 2021@08:31 Tests performed on [employer] (405) SN:[id number] Ordering Provid er: ISATU TODD Report Released Date/Time: Dec 10, 2021 07:22 AM Reporting Lab: [place] [facility] [address] [facility] [address] Performing Lab: [place] [facility] [address] [facility] [address] GLUCOSE 144 H 65-100 Dec 10, 2021 08:05 AM [place] [facility] CBC PROFILE Sp ecimen Type: BLOOD No comment enter ed. Ordering Provid er: ISATU TODD Report Released Date/Time: Dec 10, 2021 07:22 AM Reporting Lab: [place] [facility] [address] [facility] [address] Performing Lab: [place] [facility] [address] [facility] [address] WBC 7.0 4.5-11.0 RBC 4.54 4.23-5.66 HGB [...] Sp ecimen Type: PLASMA Comment: [place] [id number] on Dec 10, 2021@08:31 Tests performed on [employer] (405) SN:[id number] Ordering Provid er: ISATU TODD Report Released Date/Time: Dec 10, 2021 07:22 AM Reporting Lab: [place] [facility] [address] [facility] [address] Performing Lab: [place] [facility] [address] [facility] [address] SODIUM 139 135-145 POTASSIUM 3.7 3.5-5.0 CHLORIDE 107 100-110 CARBON DIOXIDE 24 20-30 ANION GAP 8 4-16 Dec 10, 2021 08:05 AM [place] [facility] CALCIUM Sp ecimen Type: PLASMA Comment: [place] [id number] on Dec 10, 2021@08:31 Tests performed on [employer] (405) SN:[id number] Ordering Provid er: ISATU TODD Report Released Date/Time: Dec 10, 2021 07:22 AM Reporting Lab: [place] [facility] [address] [facility] [address] Performing Lab: [place] [facility] [address] [facility] [address] CALCIUM 8.3 L 8.5-10.5 Dec 09, 2021 06:46 AM [place] [facility] MAGNESIUM Sp ecimen Type: PLASMA Comment: Tests performed on [employer] (405) SN:[id number] Ordering Provid er: ISATU TODD Report Released Date/Time: Dec 08, 2021 10:23 AM Reporting Lab: [place] [facility] [address] [facility] [address] Performing Lab: [place] [facility] [address] [facility] [address] MAGNESIUM 1.6 1.6-2.6 Dec 09, 2021 [facility] P4 GLU,BUN,CREAT,LYTES,CA Speci men Type: PLASMA 06:46 AM [facility] Comment: Tests performed on [employer] (405) SN:[id number] Ordering Provid er: ISATU TODD Report Released Date/Time: Dec 08, 2021 05:00 PM Reporting Lab: [facility] [address] [facility] [address] Performing Lab: [facility] [address] [facility] [address] UREA NITROGEN 6 L 7-25 SODIUM 134 [...] Lab: [facility] [address] [facility] [address] Performing Lab: [facility] [address] [facility] [address] WBC 7.1 4.5-11.0 RBC 4.40 4.23-5.66 HGB [...] 0.00 0-0 Dec 08, 2021 06:39 AM [place] [employer] T [facility] MAGNESIUM Sp ecimen Type: PLASMA Comment: Testin g Performed on [employer] (405) SN:[id number] Ordering Provid er: ISATU TODD Report Released Date/Time: Dec 07, 2021 10:32 AM Reporting Lab: [facility] [address] [facility] [address] Performing Lab: [facility] [address] [facility] [address] MAGNESIUM 1.5 L 1.6-2.6 Dec 08, 2021 [place] [employer] T P4 GLU,BUN,CREAT,LYTES,CA Speci men Type: PLASMA 06:39 AM [facility] Comment: Testin g Performed on [employer] (405) SN:[id number] Ordering Provid er: ISATU TODD Report Released Date/Time: Dec 07, 2021 10:32 AM Reporting Lab: [employer] T [facility] [address] [facility] [address] Performing Lab: [facility] [address] [facility] [address] UREA NITROGEN 6 L 7-25 SODIUM 136 135-145 POTASSIUM 3.3 L 3.5-5.0 CHLORIDE 104 100-110 CARBON DIOXIDE 22 20-30 ANION GAP 10 4-16 GLUCOSE 133 H 65-100 CREATININE 0.76 0.5-1.5 CALCIUM 8.4 L 8.5-10.5 eGFR(CKD-EPI 2020) >90.0 >60 Dec 08, 2021 06:39 AM [place] [employer] T [facility] CBC PROFILE Sp ecimen Type: BLOOD No comment enter ed. Ordering Provid er: ISATU TODD Report Released Date/Time: Dec 07, 2021 10:32 AM Reporting Lab: [facility] [address] [facility] [address] Performing Lab: [facility] [address] [facility] [...] NRBC 0.00 0-0 Dec 07, 2021 06:42 [facility] LIVER PROFILE Specimen Typ e: PLASMA AM [facility] Comment: Tests performed on [employer] (405 SN:[id number] Ordering Provid er: PORFIRIO WALTERS Report Released Date/Time: Dec 06, 2021 06:57 PM Reporting Lab: [facility] [address] [facility] [address] Performing Lab: [facility] [address] [facility] [address] PROTEIN, TOTAL 5.7 L 6.0-8.5 ALBUMIN 2.4 L 3.2-5.0 BILIRUBIN, TOTAL 0.4 0.2-1.2 ALKALINE PHOSPHATASE 109 40-150 ALT(SGPT) 10 7-52 AST(SGOT) 15 5-34 FIB-4 SCORE 1.92 <2.67 Dec 07, 2021 [facility] GLU,BUN,CREAT,LYTES,CA Speci men Type: PLASMA 06:42 AM [facility] Comment: Tests performed on [employer] (405) SN:[id number] Ordering Provid er: PORFIRIO WALTERS Report Released Date/Time: Dec 06, 2021 06:57 PM Reporting Lab: [place] [facility] [address] [facility] [address] Performing Lab: [place] [facility] [address] [facility] [address] UREA NITROGEN 9 7-25 SODIUM 135 135-145 POTASSIUM 3.5 3.5-5.0 CHLORIDE 103 100-110 CARBON DIOXIDE 22 20-30 ANION GAP 10 4-16 GLUCOSE 92 65-100 CREATININE 0.73 0.5-1.5 CALCIUM 8.0 L 8.5-10.5 eGFR(CKD-EPI 2020) >90.0 >60 Dec 07, 2021 06:42 AM [place] CBC PROFILE Specimen Type: BLOOD [facility] No comment enter ed. Ordering Provid er: PORFIRIO WALTERS Report Released Date/Time: Dec 06, 2021 06:57 PM Reporting Lab: [place] [facility] [address] [facility] [address] Performing Lab: [facility] [address] [facility] [address] WBC 5.7 4.5-11.0 RBC 4.15 L 4.23-5.66 [...] [facility] %) AUTOMATED Comment: Tests performed on [employer] (405) SN:[id number] Ordering Provid er: ISATU TODD Report Released Date/Time: Dec 07, 2021 10:28 AM Reporting Lab: [place] [facility] [address] [facility] [address] Performing Lab: [place] [facility] [address] [facility] [address] RETICULOCYTES (%) AUTOMATED 1.23 0. 6-2.0 RETICULOCYTES (ABS) AUTOMATED 0.052 0.030-0.090 Dec 06, 2021 09:45 [place] MRSA SURVL NARES Specimen Ty pe: NARES PM [facility] DNA No comment enter ed. Ordering Provid er: ALVARO VARGHESE Report Released Date/Time: Dec 07, 2021 02:20 AM Reporting Lab: [place] [facility] [address] [facility] [address] Performing Lab: [place] [facility] [address] [facility] [address] MRSA SURVL NARES DNA NEGATIVE NEGATIVE Dec 06, 2021 06:00 [place] URINALYSIS W/REFLEX TO Speci men Type: URINE PM [facility] CULTURE No comment enter ed. Ordering Provid er: JELANI SÁNCHEZ Report Released Date/Time: Dec 06, 2021 11:57 AM Reporting Lab: [place] [facility] [address] [facility] [address] Performing Lab: [place] [facility] [address] [facility] [address] URINE COLOR Arlin YELLOW SPECIFIC GRAVITY 1.029 [...] 21, [place] Comment: https://www.cdc.gov/coronavirus/2019-ncov/cases-updates/variant- surveillance/variant-info.html The [employer] SARS CoV 2 [employer] Assay-GX is a next-generation sequencing (NGS) assa 2021 [facility] SEQUENCING y that determine s the complete genome sequence of the SARS-CoV-2 virus. The assay contains variant-tolerant primers to broaden and improve the coverage for variant detection and increase the sensitivity 12:00 [facility] PNL(WH) of the panel to enable detection from lower viral titer samples. The assay is run on the [employer] Sequencer, which performs automated library preparation, sequencing, analysis, and reporting. PM The sequence an alysis includes determination of viral phylogenetic lineage by comparison to the reference strain Wuhan-Hu-1, GenBank: [id number]. Sequence determination may not be possible owing [...] Lab: [facility] [address] [facility] [address] Performing Lab: [facility] [address] [facility] [address] SARS-CoV-2 CLADE() 22C (OMICRON) SARS-CoV-2 LINEAGE() BA.2.12.1 Dec 06, 2021 12:00 [facility] COVID-19 AG SCREEN Specimen Type: NASAL CAVITY PM [facility] PANEL BINAX(405) Comment: Testi ng Performed By: Mike Briscoe Ordering Provid er: JELANI SÁNCHEZ Report Released Date/Time: Dec 08, 2021 08:23 AM Reporting Lab: [facility] [address] [facility] [address] Performing Lab: [facility] [address] [facility] [address] COVID-19 AG SCRN(wrj BINAX) POSITIVE HH NE G Dec 06, 2021 12:00 PM [facility] LIVER PROFILE Sp ecimen Type: PLASMA Comment: Testin g Performed on [employer] Cutter (405) SN:[id number] Ordering Provid er: JELANI SÁNCHEZ Report Released Date/Time: Dec 06, 2021 11:57 AM Reporting Lab: [facility] [address] [facility] [address] Performing Lab: [facility] [address] [facility] [address] PROTEIN, TOTAL 6.6 6.0-8.5 ALBUMIN 2.8 L 3.2-5.0 BILIRUBIN, TOTAL 0.6 0.2-1.2 ALKALINE PHOSPHATASE 134 40-150 ALT(SGPT) 13 7-52 AST(SGOT) 18 5-34 FIB-4 SCORE 1.94 <2.67 Dec 06, 2021 [facility] GLU,BUN,CREAT,LYTES,CA Speci men Type: PLASMA 12:00 PM [facility] Comment: Testin g Performed on [employer] (405) SN:[id number] Ordering Provid er: JELANI SÁNCHEZ Report Released Date/Time: Dec 06, 2021 11:57 AM Reporting Lab: [place] [facility] [address] [facility] [address] Performing Lab: [place] [facility] [address] [facility] [address] UREA NITROGEN 13 7-25 SODIUM 138 135-145 POTASSIUM 3.8 3.5-5.0 CHLORIDE 103 100-110 CARBON DIOXIDE 23 20-30 ANION GAP 12 4-16 GLUCOSE 105 H 65-100 CREATININE 0.90 0.5-1.5 CALCIUM 8.7 8.5-10.5 eGFR(CKD-EPI 2020) >90.0 >60 Dec 06, 2021 12:[address] [facility] TROPONIN II Sp ecimen Type: PLASMA Comment: Tests performed on [employer] (405) SN:[id number] Ordering Provid er: JELANI SÁNCHEZ Report Released Date/Time: Dec 06, 2021 11:57 AM Reporting Lab: [place] T [facility] [address] [facility] [address] Performing Lab: [facility] [address] [facility] [address] TROPONIN II 0.03 0.00-0.29 Dec 06, 2021 12:00 PM [facility] BNP(P) Sp ecimen Type: PLASMA Comment: Tests performed on [employer] Cutter (405) SN:[id number] Ordering Provid er: JELANI SÁNCHEZ Report Released Date/Time: Dec 06, 2021 11:57 AM Reporting Lab: [place] [facility] [address] [facility] [address] Performing Lab: [facility] [address] [facility] [address] BNP(P) 224.8 H 10-100 Dec 06, 2021 [place] COVID-19+FLU/RSV DIAGNOSTIC Spe cimen Type: NASOPHARYNX 12:00 PM [facility] PANEL(405) Comment: Tests performed on [employer] Genexpert (405) Critical results called to and read back by: ALESHIA WILKINSON RN 12/06/21 @ 1312 Ordering Provid er: JELANI SÁNCHEZ Report Released Date/Time: Dec 06, 2021 11:57 AM Reporting Lab: [place] [facility] [address] [facility] [address] Performing Lab: [place] [facility] [address] [facility] [address] FLU A(PCR) NEGATIVE NEGATIVE FLU B(PCR) NEGATIVE NEGATIVE RSV(PCR) NEGATIVE NEGATIVE COVID-19(XRI-[id number]) DETECTED HH NO T DETECTED Dec 06, 2021 12:00 PM [facility] Sp ecimen Type: BLOOD No comment enter ed. Ordering Provid er: JELANI SÁNCHEZ Report Released Date/Time: Dec 06, 2021 11:57 AM Reporting Lab: [facility] [address] [facility] [address] Performing Lab: [facility] [address] [facility] [address] WBC 7.2 4.5-11.0 RBC 4.86 4.23-5.66 HGB [...] 94 122/75 18 /min 97 % 0 [place] 2021 09:00 /min mm[Hg] R[facility] PM T [facility] Dec 10, 0 WHITE 2021 08:57 RIVER PM T [facility] Dec 10, 0 WHITE 2021 04:17 RIVER PM T [facility] Dec 10, 97.8 F 93 125/74 20 /min 95 % 0 [place] 2021 01:40 /min mm[Hg] RIVER PM T [facility] Dec 10, 231.9 32 [place] 2021 10:22 lb RIVER AM [facility] Social History: Smoking Status (Most current) [...] [facility] May 01, 2016 03:11 PM QUIT TOBACCO USE IN PAST YEAR [facility] May 01, 2016 11:19 AM QUIT TOBACCO USE IN PAST YEAR [facility] Mar 16, 2016 12:50 PM V1-PT DECLINES REF TO TOBACCO [facility] CESS PRGM Mar 16, 2016 12:50 PM V1-PT THINKING ABOUT QUIT [facility] TOBACCO USE Aug 12, 2015 08:48 AM CURRENT SMOKER [facility] Radiology Reports: +/- 30 days of [...] W/WO CONTRAST: MARYELLEN LONG LUCAS LARES N [id number] -1950 [facility] Exm Date: DEC 13, 2021@12:57 Req Phys: ISATU TODD Loc: OP Unknown/0 12-15-2021@13:20 Img Loc: MRI IMAGING (OOS) Service: [facility] (Case [id number] COMPLETE) MRI ABDOMEN W/WO CONTRAST (M RI Detailed) CPT:13452 Reason for Study: further characterization of a [...] new lyphadenopathy REQUESTING MD: Isatu Todd PAGER: [phone] PHONE: [phone] Weight: 232.2 lb [105.32 kg] (12/12/2021 05:00) [...] patient will need to arrange for a after school driver to take him/her home after the [...] 15, 2021 Date Verified: DEC 15, 2021 Pulp Beater E-Sig:/ES/MARYELLEN LONG Report: MRI ABDOMEN W/WO CONTRAST [...] MALIGNANCY Primary Interpreting Staff: Staff AMELIA THOMAS (Pulp Beater) / Dec 10, 2021 09:[address] ABDOMEN & PELVIS: RADIOLOGY,OUTSIDE [facility] LUCAS MEEK N [id number] -1950 M SERVICE [facility] Exm Date: DEC 10, 2021@09:30 Req Phys: ISATU TODD Loc: MED/12-10@10:57 Img Loc: CT SCAN (OOS) Service: [facility] MEDICINE (Case [id number] COMPLETE) CT ABD & PELVIS WITHOUT CONT RAST (CT Detailed) CPT:34900 Reason for Study: 71 yo male with [...] RADIOLOGY [phone] to speak to the appropriate ergonomics technician. Report Status: Verified Date Reported: DEC 10, 2021 Date Verified: DEC 10, 2021 Pulp Beater E-Sig: Report: EXAM: CT abdomen and pelvis [...] ph nodes. READING PHYSICIAN: Ramone Munoz D.O. -[phone] [id number] 12/10/2021 10:55 EDT [facility] National Teleradiology Program [phone] (For Medical Practitioner Use Only ) [address], [facility] [address] [place] [address] Attention Patients / Veterans: If you have ques tions or concerns about these test results, please contact [facility] or primary care team. Primary Diagnostic Code: SIGNIFICANT ABNORMALIT Y, ATTN NEEDED Primary Interpreting Staff: RADIOLOGY,OUTSIDE SERVICE, Staff Physician / Dec 09, 2021 07:34 AM BASW (MODIFIED): JESSIE CHENEY [facility] LUCAS MEEK N [id number] -1950 M [facility] Exm Date: DEC 09, 2021@07:34 Req Phys: ISATU TODD Loc: 1S MED/12-09@11:26 Img Loc: XRAY (OOS) Service: [facility] MEDICINE (Case [id number] COMPLETE) BASW (MODIFIED) (RAD Detaile d) CPT:51287 Contrast Media : Barium Reason for Study: dysphagia ?esophageal spasm Clinical History: Report Status: Verified Date Reported: DEC 09, 2021 Date Verified: DEC 09, 2021 Pulp Beater E-Sig:/ES/JESSIE CHENEY Report: BASW (MODIFIED) , 12/09/2021 [...] REQUIRED Primary Interpreting Staff: JESSIE CHENEY, RADIOLOGIST (Pulp Beater) /TLC Dec 06, 2021 12:[address] CHEST (INCLUDES ADRENALS): JESSIE CHENEY [facility] LUCAS MEEK N [id number] -1950 M [facility] Exm Date: DEC 06, 2021@12:59 Req Phys: GONZALOJELANI Loc: [facility] ED DAYS M 1RD (Req'g Loc) Img Loc: CT SCAN (OOS) Service: Unknown (Case [id number] COMPLETE) CT THORAX W/O CONT (CT Detai led) CPT:84835 Reason for Study: Opacification right chest Clinical History: No contrast allergy BUN: 13 (12/06/21 12:00) CREATI: 0.90 (12/06/21 12:00) eGFR 05/16/21 09:43 52 L Weight: 232.6 lb [105.51 kg] (12/06/2021 11:40) BODY MASS INDEX - NO HEIGHTS FOUND Pager number: [phone] STAT orders MUST be called t o RADIOLOGY [phone] to speak to the appropriate ergonomics technician. Indications - Other: Opacification right chest, covid positive, lung cancer histo Report Status: Verified Date Reported: DEC 06, 2021 Date Verified: DEC 06, 2021 Pulp Beater E-Sig:/ES/JESSIE CHENEY Report: CT THORAX W/O CONT [...] REQUIRED Primary Interpreting Staff: JESSIE CHENEY, RADIOLOGIST (Pulp Beater) Primary Interpreting Resident: PRINCE CHAMPION, Resident /BR Dec 06, 2021 11:58 AM CHEST SINGLE VIEW: JESSIE CHENEY DOUGLAS N [id number] -1950 M [facility] Exm Date: DEC 06, 2021@11:58 Req Phys: JELANI SÁNCHEZ Pat Loc: [facility] ED DAYS M 1RD (Req'g Loc) Img Loc: XRAY (OOS) Service: Unknown (Case [id number] COMPLETE) CHEST SINGLE VIEW (RAD Detai led) CPT:48745 Proc Modifiers : PORTABLE EXAM Reason for Study: SOB, home covid test positive Clinical History: Report Status: Verified Date Reported: DEC 06, 2021 Date Verified: DEC 06, 2021 Pulp Beater E-Sig:/ES/JESSIE CHENEY Report: Exam type: Chest x-ray [...] REQUIRED Primary Interpreting Staff: JESSIE CHENEY, RADIOLOGIST (Pulp Beater) /TLC Pathology Reports: +/- 30 days of [...] [facility] [CLIA# [id number]] [address] [place] [address] - - - - - - [...] automatically d ocumented from SURGERY package case #[id number] Field (#32) PRINCIPAL PRE-OP DIAGNOSIS, (#.72) OTHER [...] automatically d ocumented from SURGERY package case #[id number] Field (#34) PRINCIPAL POST-OP DIAG, (#.74) OTHER [...] Label: Lucas Meek Paperwork: Lucas Meek Cassette: [id number];..;KALYANI;.;405;[id number] Specimen is labeled: ES bx Received in formalin are several pieces of pale boyd and brown tissue, 1.2 x 0.7 cm in aggregate. Submitted entirely in 1 cassette [id number];..;KALYANI;.;405;[id number] SAW 12/15/2021 Microscopic exam: *+* MODIFIED REPORT [...] report in rendering the final pathologic diagnosis. [address] [address] CPT: 20154 /emely/ NIURKA Yeung MD Signed Jan 03, 2022@10:28 Performing Laboratory: Surgical Pathology Report Performed By: [facility]TO[facility] [CLIA# [id number]] [address] [place] [address] $FTR - - - - - [...] - - LUCAS MEEK STANDARD FORM 515 ID:[id number] SEX:M :1950 AGE: 71 LOC: SDM END PCP: Isatu Todd /emely/ NIURKA MILLER Staff Signed: 01/03/2022 10:28 Dec 21, 2021 11:46 AM LR SURGICAL PATHOLOGY REPORT: [facility] LOCAL TITLE: LR SURGICAL PATHOLOGY REPORT [facility] STANDARD TITLE: PATHOLOGY REPORT DATE OF NOTE: DEC 21, 2021@11:46:59 ENTRY DATE: DEC 21, 2021@11:46:59 AUTHOR: NIURKA MILLER EXP COSIGNER: URGENCY: STATUS: COMPLETED $APHDR Reporting Lab: [facility] [CLIA# [id number]] [address] [place] [place] [address] - - - - - - [...] automatically d ocumented from SURGERY package case #[id number] Field (#32) PRINCIPAL PRE-OP DIAGNOSIS, (#.72) OTHER [...] automatically d ocumented from SURGERY package case #[id number] Field (#34) PRINCIPAL POST-OP DIAG, (#.74) OTHER [...] Label: Lucas Meek Paperwork: Lucas Meek Cassette: [id number];..;KALYANI;.;408;[id number] Specimen is labeled: ES bx Received in formalin are several pieces of pale boyd and brown tissue, 1.2 x 0.7 cm in aggregate. Submitted entirely in 1 cassette [id number];..;KALYANI;.;405;[id number] SAW 12/15/2021 Microscopic exam: DIAGNOSIS: A. 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 Kendell long. TIARA Coombs was notified on 12/21/21. The attending pathologist who signature mansoor ears on this report has reviewed all diagnostic slides and has edited t he gross and/or microscopic portion of this report in rendering the final pathologic diagnosis. [address] [address] CPT: 73391 /emely/ NIURKA Yeung MD Signed Dec 21, 2021@11:46 Performing Laboratory: Surgical Pathology Report Performed By: [facility] [CLIA# [id number]] [address] [place] [address] $FTR - - - - - [...] - - LUCAS MEEK STANDARD FORM 515 ID:[id number] SEX:M :1950 AGE: 71 LOC: [facility] END PCP: Isatu Todd /charmaine Yeung MD Signed: 12/21/2021 11:46 Dec 06, 2021 03:30 PM LR MICROBIOLOGY REPORT: [facility] Reporting Lab: [facility] [CLIA# [id number]] [address] [place] [address] Accession [UID]: [id number] [[id number]] Receiv ed: Dec 06, 2021@16:14 Collection sample: BLOOD CUL T BOTTLE(NIRMAL/AERO)Collection date: Dec 06, 2021 15:30 Site/Specimen: BLOOD Provider: JELANI SÁNCHEZ Comment on specimen: LAC Test(s) ordered: BLOOD CULTURE ANAEROBI C....... completed: Dec 12, 2021 06:18 * BACTERIOLOGY FINAL REPORT => Dec 12, 2021 06:1 8 TECH CODE: [id number] Bacteriology Remark(s): NO GROWTH IN 5 DAYS =--=--=--=--=--=--=--=--=--=--=--=--=--= --=--=--=--=--=--=--=--=--=--=--=--=-- Performing Laboratory: Bacteriology Report Performed By: [facility] [CLIA# [id number]] [address] [place] [address] Dec 06, 2021 03:30 PM LR MICROBIOLOGY REPORT: [facility] Reporting Lab: [facility] [CLIA# [id number]] [address] [place] [address] Accession [UID]: [id number] [[id number]] Receiv ed: Dec 06, 2021@16:14 Collection sample: BLOOD CUL T BOTTLE(NIRMAL/AERO)Collection date: Dec 06, 2021 15:30 Site/Specimen: BLOOD Provider: JELANI SÁNCHEZ Comment on specimen: LAC Test(s) ordered: BLOOD CULTURE AEROBIC. ........ completed: Dec 12, 2021 06:17 * BACTERIOLOGY FINAL REPORT => Dec 12, 2021 06:1 7 TECH CODE: [id number] Bacteriology Remark(s): NO GROWTH IN 5 DAYS =--=--=--=--=--=--=--=--=--=--=--=--=--= --=--=--=--=--=--=--=--=--=--=--=--=-- Performing Laboratory: Bacteriology Report Performed By: [facility] [CLIA# [id number]] [address] [place] [address]
--- OUTSIDE RECORDS SUMMARY | 2022-01-19 09:06 | XMS_ITS ---
DAILY HOSPITALIZATION DATA [facility] Encounter Summary Created on:December 10, 2021 Patient:LUCAS MEEK Sex:Male :1950 Author Organization [facility] Address [address] [place] [id number] Support Name Relationship Address Phone YUSRA MEEK Unavailable [address] [place] [address] YUSRA MEEK Unavailable [address] [place] [facility] [place] [address] CLAY MOSLEY Unavailable Unavailable SJ SANTACRUZ Unavailable [...] MEDICARE MEDICARE PART Jun 18, PART A [id number] DO KALYANI PATIENT (WNR) (M) A 2016 13A 1 UGLAS MEDICARE MEDICARE PART Jun 18, PART B [id number] DO KALYANI PATIENT (WNR) (M) B 2017 VH81 2 LAS MEDICARE MEDICARE PART Jun 18, PART B [id number] DO KALYANI PATIENT (WNR) (M) B 2016 13A 1 UGLAS MEDICARE MEDICARE PART Jun 18, PART A [id number] DO KALYANI PATIENT (WNR) (M) A 2017 VH81 2 UGLAS UNITED MEDICARE MCR(Jun 18 [id number] Luz MEEK PATIENT HEALTHCARE ADVANTAGE NR) 2021 37 0 [facility] (WNR) Selected Encounter This section includes the information on record at [place] for the Encounter. Date/Time Encounter Type Encounter Description Reason Provider Source Dec 10, 2021 09:01 Inpatient Visit DAILY HOSPITALIZATION DATA PM IHE [...] 2022 10:00 AM AMBULATORY - SURGERY [place] [facility] [...] The data comes from all [place] treatment [facility]. Test Date/Time Test Type Test Details Facility Name October 31, 2021 07:37 AM Consult Order COMMUNITY CARE-EGD [facility] Cons Presser Automatic's Choice November 15, 2021 10:37 AM Consult Order [facility] CARE-PODIATRY Cons Presser [facility] Choice Dec 06, 2021 12:52 PM Pharmacy [...] ER [place] OUTPATIENT Cons [facility] Presser Automatic's Choice Jan 15, 2022 10:08 PM Consult Order [facility] CARE-PALLIATIVE CARE Cons Presser Automatic's Choice Lab Results: +/- 30 days of [...] Reference Range Comment Dec 15, 2021 [place] P4 GLU,BUN,CREAT,LYTES,CA Speci men Type: PLASMA 06:43 AM [facility] Comment: Tests performed on ScaleGrid (405) SN:[id number] Ordering Provid er: ISATU TODD Report Released Date/Time: Dec 11, 2021 07:42 AM Reporting Lab: [facility] [address] [facility] [address] Performing Lab: [facility] [address] [facility] [address] UREA NITROGEN 9 7-25 SODIUM 137 135-145 [...] T [facility] [address] [facility] [address] Performing Lab: [facility] [address] [facility] [address] WBC 5.7 4.5-11.0 RBC 4.22 L 4.23-5.66 [...] Dec 14, [address] [facility] CYTOGENETIC Specimen Type: ESOPHAGUS 02:59 PM [facility] FISH([facility] Comment: ~For T est: CYTOGENETIC FISH([facility] [place]) ~FISH HER 2 NUE, FFPE See full report in Bababoo Image display viewer/tab#LAB-Reference Ordering Provid er: NIURKA MILLER Report Released Date/Time: Dec 21, 2021 12:11 PM Reporting Lab: [facility] [address] [facility] [address] Performing Lab: [facility] CYTOGENETIC FISH([facility]) comment Dec 14, [address] [facility] P4 GLU,BUN,CREAT,LYTES,CA Speci men Type: PLASMA 06:27 AM [facility] Comment: Tests performed on ScaleGrid (405) SN:[id number] Ordering Provid er: ISATU TODD Report Released Date/Time: Dec 11, 2021 07:42 AM Reporting Lab: [facility] [address] [facility] [address] Performing Lab: [facility] [address] [facility] [address] UREA NITROGEN 10 7-25 SODIUM 137 135-145 [...] Reporting Lab: [facility] [address] [facility] [address] Performing Lab: [facility] [address] [facility] [address] WBC 6.0 4.5-11.0 RBC 4.29 4.23-5.66 HGB [...] 0-0 Dec 13, [address] [facility] P4 GLU,BUN,CREAT,LYTES,CA Speci men Type: PLASMA 06:34 AM [facility] Comment: Tests performed on ScaleGrid (405) SN:[id number] Ordering Provid er: ISATU TODD Report Released Date/Time: Dec 11, 2021 07:42 AM Reporting Lab: [facility] [address] [facility] [address] Per[facility]: [facility] [address] [facility] [address] UREA NITROGEN 12 7-25 SODIUM 136 135-145 [...] Reporting Lab: [facility] [address] [facility] [address] Performing Lab: [facility] [address] [facility] [address] WBC 5.6 4.5-11.0 RBC 4.28 4.23-5.66 HGB [...] [facility] Comment: Tests performed on ScaleGrid (405) SN:[id number] Ordering Provid er: ISATU TODD Report Released Date/Time: Dec 11, 2021 07:42 AM Reporting Lab: [facility] [address] [facility] [address] Performing [facility]: [facility] [address] [facility] [address] UREA NITROGEN 11 7-25 SODIUM 139 135-145 [...] Dec 10, 2021 07:22 AM Reporting Lab: [facility] [address] [facility] [address] Performing Lab: [facility] [address] [facility] [address] WBC 5.5 4.5-11.0 RBC 4.37 4.23-5.66 HGB [...] 0.00 0-0 Dec 12, 2021 06:00 AM Feast[facility] MAGNESIUM Sp ecimen Type: PLASMA Comment: Testin g Performed on ScaleGrid (405) SN:[id number] Ordering Provid er: ISATU TODD Report Released Date/Time: Dec 12, 2021 08:24 AM Reporting Lab: [place] [facility] [address] [facility] [address] Performing Lab: [email or web address] [place] PrimavistaT [facility] [address] [facility] [address] MAGNESIUM 1.8 1.6-2.6 Dec 12, 2021 06:00 AM FeastT [facility] PHOSPHORUS Sp ecimen Type: PLASMA Comment: Testin g Performed on ScaleGrid (405) SN:[id number] Ordering Provid er: ISATU TODD Report Released Date/Time: Dec 12, 2021 08:24 AM Reporting Lab: [place] [facility] [address] [facility] [address] Performing Lab: [place] [facility]istaT [facility] [address] [facility] [address] PHOSPHORUS 3.1 2.5-5.0 Dec 11, 2021 06:15 AM [email or web address] [place] PrimavistaT LetsdeccoMROC ELECTROLYTES Sp ecimen Type: PLASMA Comment: Tests performed on ScaleGrid (405) SN:[id number] Ordering Provid er: ISATU TODD Report Released Date/Time: Dec 10, 2021 07:22 AM Reporting Lab: [place] [facility] [address] [facility] [address] Performing Lab: [place] [facility] [address] [facility] [address] SODIUM 137 135-145 POTASSIUM 4.3 3.5-5.0 CHLORIDE 108 100-110 CARBON DIOXIDE 20 20-30 ANION GAP 9 4-16 Dec 11, 2021 06:15 AM WHITE Bump [employer]T [facility] CBC PROFILE Sp ecimen Type: BLOOD Comment: Result s checked Ordering Provid er: ISATU TODD Report Released Date/Time: Dec 10, 2021 07:22 AM Reporting Lab: [place] OMEGAT [facility] [address] [facility] [address] Performing Lab: [facility] [place] OMEGAT [facility] [address] [facility] [address] WBC 5.8 4.5-11.0 RBC 4.37 4.23-5.66 HGB [...] 0.00 0-0 Dec 11, 2021 06:00 AM [facility] PHOSPHORUS Sp ecimen Type: PLASMA Comment: Tests performed on ScaleGrid (362) SN:[id number] Results checked Ordering Provid er: ISATU TODD Report Released Date/Time: Dec 11, 2021 07:44 AM Reporting Lab: [facility] [address] [facility] [address] Performing Lab: [place] OMEGAT [place] [address] [facility] [address] PHOSPHORUS 3.0 2.5-5.0 Dec 10, 2021 08:05 AM [place] [facility] MAGNESIUM Sp ecimen Type: PLASMA Comment: [place] [id number] on Dec 10, 2021@08:31 Tests performed on ScaleGrid (405) SN:[id number] Ordering Provid er: ISATU TODD Report Released Date/Time: Dec 10, 2021 07:22 AM Reporting Lab: [place] [facility] [address] [place] [facility] [place] [address] Performing Lab: [place] [facility] [address] [place] [facility] [place] [address] MAGNESIUM 1.7 1.6-2.6 Dec 10, 2021 08:05 AM [place] [facility] PHOSPHORUS Sp ecimen Type: PLASMA Comment: [place] [id number] on Dec 10, 2021@08:31 Tests performed on ScaleGrid (405) SN:[id number] Ordering Provid er: ISATU TODD Report Released Date/Time: Dec 10, 2021 07:22 AM Reporting Lab: [place] [facility] [address] [place] [facility] [place] [address] Performing Lab: [place] [facility] [address] [place] [facility] [place] [address] PHOSPHORUS 1.8 L 2.5-5.0 Dec 10, 2021 08:05 AM [place] UREA NITROGEN Specimen Type: PLASMA [facility] Comment: [place] [id number] on Dec 10, 2021@08:31 Tests performed on ScaleGrid (405) SN:[id number] Ordering Provid er: ISATU TODD Report Released Date/Time: Dec 10, 2021 07:22 AM Reporting Lab: [place] [facility] [address] [place] [facility] [place] [address] Performing Lab: [place] [facility] [address] [place] [facility] [place] [address] UREA NITROGEN 8 7-25 Dec 10, 2021 08:05 AM [place] [facility] GLUCOSE Sp ecimen Type: PLASMA Comment: [place] [id number] on Dec 10, 2021@08:31 Tests performed on ScaleGrid (405) SN:[id number] Ordering Provid er: ISATU TODD Report Released Date/Time: Dec 10, 2021 07:22 AM Reporting Lab: [place] [facility] [address] [facility] [address] Performing Lab: [place] [facility] [address] [facility] [address] GLUCOSE 144 H 65-100 Dec 10, 2021 08:05 AM [place] [facility] CALCIUM Sp ecimen Type: PLASMA Comment: [place] [id number] on Dec 10, 2021@08:31 Tests performed on ScaleGrid (405) SN:[id number] Ordering Provid er: ISATU TODD Report Released Date/Time: Dec 10, 2021 07:22 AM Reporting Lab: [place] [facility] [address] [facility] [address] Performing Lab: [place] [facility] [address] [facility] [address] CALCIUM 8.3 L 8.5-10.5 Dec 10, 2021 08:05 AM [place] [facility] ELECTROLYTES Sp ecimen Type: PLASMA Comment: [place] [id number] on Dec 10, 2021@08:31 Tests performed on Pham [email or web address] (405) SN:[id number] Ordering Provid er: ISATU TODD Report Released Date/Time: Dec 10, 2021 07:22 AM Reporting Lab: [place] [facility] [address] [facility] [address] Performing Lab: [place] [facility] [address] [facility] [address] SODIUM 139 135-145 POTASSIUM 3.7 3.5-5.0 CHLORIDE 107 100-110 CARBON DIOXIDE 24 20-30 ANION GAP 8 4-16 Dec 10, 2021 08:05 [place] CREATININE WITH eGFR Specime n Type: PLASMA AM [facility] PANEL Comment: [place] [id number] on Dec 10, 2021@08:31 Tests performed on ScaleGrid (405) SN:[id number] Ordering Provid er: ISATU TODD Report Released Date/Time: Dec 10, 2021 07:22 AM Reporting Lab: [place] [facility] [address] [facility] [address] Performing Lab: [place] [facility] [address] [facility] [address] CREATININE 0.78 0.5-1.5 eGFR(CKD-EPI 2020) >90.0 >60 Dec 10, 2021 08:05 AM [facility] CBC PROFILE Sp ecimen Type: BLOOD No comment enter ed. Ordering Provid er: ISATU TODD Report Released Date/Time: Dec 10, 2021 07:22 AM Reporting Lab: [place] [place] [facility]ME[facility] [address] [facility] [address] Performing Lab: [place] OMEGAT [facility] [address] [facility] [address] WBC 7.0 4.5-11.0 RBC 4.54 4.23-5.66 HGB [...] 0.00 0-0 Dec 09, 2021 06:46 AM [facility] MAGNESIUM Sp ecimen Type: PLASMA Comment: Tests performed on ScaleGrid (937) SN:[id number] Ordering Provid er: ISATU TODD Report Released Date/Time: Dec 08, 2021 10:23 AM Reporting Lab: [facility] [address] [facility] [address] Performing Lab: [facility] [address] [facility] [address] MAGNESIUM 1.6 1.6-2.6 Dec 09, [address] [facility] P4 GLU,BUN,CREAT,LYTES,CA Speci men Type: PLASMA 06:46 AM [facility] Comment: Tests performed on ScaleGrid (405) SN:[id number] Ordering Provid er: ISATU TODD Report Released Date/Time: Dec 08, 2021 05:00 PM Reporting Lab: [facility] [address] [facility] [address] Performing Lab: [facility] [address] [facility] [address] UREA NITROGEN 6 L 7-25 SODIUM 134 [...] Reporting Lab: [facility] [address] [facility] [address] Performing Lab: [facility] [address] [facility] [address] WBC 7.1 4.5-11.0 RBC 4.40 4.23-5.66 HGB [...] 0.00 0-0 Dec 08, 2021 06:39 AM [place] scanR T [facility] MAGNESIUM Sp ecimen Type: PLASMA Comment: Testin g Performed on ScaleGrid (405) SN:[id number] Ordering Provid er: ISATU TODD Report Released Date/Time: Dec 07, 2021 10:32 AM Reporting Lab: [facility] [address] [facility] [address] Performing Lab: [facility] [address] [facility] [address] MAGNESIUM 1.5 L 1.6-2.6 Dec 08, 2021 [place] scanR T P4 GLU,BUN,CREAT,LYTES,CA Speci men Type: PLASMA 06:39 AM [facility] Comment: Testin g Performed on ScaleGrid (405) SN:[id number] Ordering Provid er: ISATU TODD Report Released Date/Time: Dec 07, 2021 10:32 AM Reporting Lab: [employer] T [facility] [address] [facility] [address] Performing Lab: [facility] [address] [facility] [address] UREA NITROGEN 6 L 7-25 SODIUM 136 135-145 POTASSIUM 3.3 L 3.5-5.0 CHLORIDE 104 100-110 CARBON DIOXIDE 22 20-30 ANION GAP 10 4-16 GLUCOSE 133 H 65-100 CREATININE 0.76 0.5-1.5 CALCIUM 8.4 L 8.5-10.5 eGFR(CKD-EPI 2020) >90.0 >60 Dec 08, 2021 06:39 AM [place] scanR T [facility] CBC PROFILE Sp ecimen Type: BLOOD No comment enter ed. Ordering Provid er: ISATU TODD Report Released Date/Time: Dec 07, 2021 10:32 AM Reporting Lab: [facility] [address] [facility] [address] Performing Lab: [facility] [address] [facility] [address] WBC 8.4 4.5-11.0 RBC 4.75 4.23-5.66 HGB [...] [facility] Comment: Tests performed on ScaleGrid (405 SN:[id number] Ordering Provid er: PORFIRIO WALTERS Report Released Date/Time: Dec 06, 2021 06:57 PM Reporting Lab: [facility] [address] [facility] [address] Performing Lab: [facility] [address] [facility] [address] UREA NITROGEN 9 7-25 SODIUM 135 135-145 POTASSIUM 3.5 3.5-5.0 CHLORIDE 103 100-110 CARBON DIOXIDE 22 20-30 ANION GAP 10 4-16 GLUCOSE 92 65-100 CREATININE 0.73 0.5-1.5 CALCIUM 8.0 L 8.5-10.5 eGFR(CKD-EPI 2020) >90.0 >60 Dec 07, 2021 06:42 [place] LIVER PROFILE Specimen Typ e: PLASMA AM [facility] Comment: Tests performed on [employer] Civil [employer] Intern (405) SN:[id number] Ordering Provid er: PORFIRIO WALTERS Report Released Date/Time: Dec 06, 2021 06:57 PM Reporting Lab: [facility] [address] [facility] [address] Performing Lab: [facility] [address] [facility] [address] PROTEIN, TOTAL 5.7 L 6.0-8.5 ALBUMIN 2.4 L 3.2-5.0 BILIRUBIN, TOTAL 0.4 0.2-1.2 ALKALINE PHOSPHATASE 109 40-150 ALT(SGPT) 10 7-52 AST(SGOT) 15 5-34 FIB-4 SCORE 1.92 <2.67 Dec 07, 2021 06:42 AM [place] [facility] CBC PROFILE Specimen Type: BLOOD [facility] No comment enter ed. Ordering Provid er: PORFIRIO WALTERS Report Released Date/Time: Dec 06, 2021 06:57 PM Reporting Lab: [facility] [address] [facility] [address] Per[facility]: [facility] [address] [facility] [address] WBC 5.7 4.5-11.0 RBC 4.15 L 4.23-5.66 [...] [facility] %) AUTOMATED Comment: Tests performed on ScaleGrid (405) SN:[id number] Ordering Provid er: ISATU TODD Report Released Date/Time: Dec 07, 2021 10:28 AM Reporting Lab: [place] [facility] [address] [facility] [address] Performing Lab: [place] [facility] [address] [facility] [address] RETICULOCYTES (%) AUTOMATED 1.23 0. 6-2.0 RETICULOCYTES (ABS) AUTOMATED 0.052 0.030-0.090 Dec 06, 2021 09:45 [place] MRSA SURVL NARES Specimen Ty pe: NARES PM [facility] DNA No comment enter ed. Ordering Provid er: ALVARO VARGHESE Report Released Date/Time: Dec 07, 2021 02:20 AM Reporting Lab: [place] [facility] [address] [facility] [address] Performing Lab: [place] [facility] [address] [facility] [address] MRSA SURVL NARES DNA NEGATIVE NEGATIVE Dec 06, 2021 06:00 [place] URINALYSIS W/REFLEX TO Speci men Type: URINE PM [facility] CULTURE No comment enter ed. Ordering Provid er: JELANI SÁNCHEZ Report Released Date/Time: Dec 06, 2021 11:57 AM Reporting Lab: [place] [facility] [address] [facility] [address] Performing Lab: [place] [facility] [address] [facility] [address] URINE COLOR Arlin YELLOW SPECIFIC GRAVITY 1.029 [...] 21, [place] Comment: https://www.cdc.gov/coronavirus/2019-ncov/cases-updates/variant- surveillance/variant-info.html [employer] SARS CoV 2 [employer] Assay-GX is a next-generation sequencing (NGS) assa 2021 [facility] SEQUENCING y that determine s the complete genome sequence of the SARS-CoV-2 virus. The assay contains variant-tolerant primers to broaden and improve the coverage for variant detection and increase the sensitivity 12:00 [facility] PNL(WH) of the panel to enable detection from lower viral titer samples. The assay is run on the [employer] Sequencer, which performs automated library preparation, sequencing, analysis, and reporting. PM The sequence an alysis includes determination of viral phylogenetic lineage by comparison to the reference strain Wuhan-Hu-1, GenBank: [id number]. Sequence determination may not be possible owing [...] and its performance characteristics determined by the [facility] Molecular Diagnostics Laboratory, which is certified under the Clinical Laboratory Improveme nt Amendments (C MARCO) as qualified to perform high complexity clinical laboratory testing. This test is validated for clinical use at [facility] and should not be regarded as investigational or for research. The FDA does not require this test to go through premarket FDA review, and therefore it has not been cleared or approved by the FDA. This report was reviewed and approved by the on-service pathologist. Ordering Provid er: JELANI SÁNCHEZ Report Released Date/Time: Dec 06, 2021 01:13 PM Reporting Lab: [facility] [address] [facility] [address] Performing Lab: [facility] [address] [facility] [address] SARS-CoV-2 CLADE() 22C (OMICRON) SARS-CoV-2 LINEAGE() BA.2.12.1 Dec 06, 2021 12:00 [facility] COVID-19 AG SCREEN Specimen Type: NASAL CAVITY PM [facility] PANEL BINAX(405) Comment: Testi ng Performed By: Mike Briscoe Ordering Provid er: JELANI SÁNCHEZ Report Released Date/Time: Dec 08, 2021 08:23 AM Reporting Lab: [facility] [address] [facility] [address] Performing Lab: [facility] [address] [facility] [address] COVID-19 AG SCRN(wrj BINAX) POSITIVE HH NE G Dec 06, 2021 12:00 PM [facility] TROPONIN II Sp ecimen Type: PLASMA Comment: Tests performed on Pham Civil [employer] Intern (405) SN:[id number] Ordering Provid er: JELANI SÁNCHEZ Report Released Date/Time: Dec 06, 2021 11:57 AM Reporting Lab: [facility] [address] [facility] [address] Performing Lab: [facility] [address] [facility] [address] TROPONIN II 0.03 0.00-0.29 Dec 06, 2021 [place] P4 GLU,BUN,CREAT,LYTES,CA Speci men Type: PLASMA 12:00 PM [facility] Comment: Testin g Performed on [employer] Intern (405) SN:[id number] Ordering Provid er: JELANI SÁNCHEZ Report Released Date/Time: Dec 06, 2021 11:57 AM Reporting Lab: [place] [facility] [address] [facility] [address] Performing Lab: [place] [facility] [address] [facility] [address] UREA NITROGEN 13 7-25 SODIUM 138 135-145 POTASSIUM 3.8 3.5-5.0 CHLORIDE 103 100-110 CARBON DIOXIDE 23 20-30 ANION GAP 12 4-16 GLUCOSE 105 H 65-100 CREATININE 0.90 0.5-1.5 CALCIUM 8.7 8.5-10.5 eGFR(CKD-EPI 2020) >90.0 >60 Dec 06, 2021 12:[address] [facility] LIVER PROFILE Sp ecimen Type: PLASMA Comment: Testin g Performed on [employer] Intern (405) SN:[id number] Ordering Provid er: JELANI SÁNCHEZ Report Released Date/Time: Dec 06, 2021 11:57 AM Reporting Lab: [facility] [address] [facility] [address] Performing Lab: [facility] [address] [facility] [address] PROTEIN, TOTAL 6.6 6.0-8.5 ALBUMIN 2.8 L 3.2-5.0 BILIRUBIN, TOTAL 0.6 0.2-1.2 ALKALINE PHOSPHATASE 134 40-150 ALT(SGPT) 13 7-52 AST(SGOT) 18 5-34 FIB-4 SCORE 1.94 <2.67 Dec 06, [address] [facility] COVID-19+FLU/RSV DIAGNOSTIC Spe cimen Type: NASOPHARYNX 12:00 PM [facility] PANEL(405) Comment: Tests performed on [employer] Mi [employer] Genexpert (405) Critical results called to and read back by: ALESHIA WILKINSON RN 12/06/21 @ 1312 Ordering Provid er: JELANI SÁNCHEZ Report Released Date/Time: Dec 06, 2021 11:57 AM Reporting Lab: [facility] [address] [facility] [address] Performing Lab: [facility] [address] [facility] [address] FLU A(PCR) NEGATIVE NEGATIVE FLU B(PCR) NEGATIVE NEGATIVE RSV(PCR) NEGATIVE NEGATIVE COVID-19(MIR-xzo-[id number]) DETECTED HH NO T DETECTED Dec 06, 2021 12:[address] [facility] BNP(P) Sp ecimen Type: PLASMA Comment: Tests performed on Pham Civil [employer] Intern (405) SN:[id number] Ordering Provid er: JELANI SÁNCHEZ Report Released Date/Time: Dec 06, 2021 11:57 AM Reporting Lab: [facility] [address] [facility] [address] Performing Lab: [place] [facility] [address] [facility] [address] BNP(P) 224.8 H 10-100 Dec 06, 2021 12:00 PM [place] [facility] CBC PROFILE Sp ecimen Type: BLOOD No comment enter ed. Ordering Provid er: JELANI SÁNCHEZ Report Released Date/Time: Dec 06, 2021 11:57 AM Reporting Lab: [facility] [facility] [address] [facility] [address] Performing Lab: [facility] [address] [facility] [address] WBC 7.2 4.5-11.0 RBC 4.86 4.23-5.66 HGB [...] 94 122/75 18 /min 97 % 0 [place] 2021 09:00 /min mm[Hg] [place] PM T [facility] Dec 10, 0 WHITE 2021 08:57 [place] PM T [facility] Dec 10, 0 WHITE 2021 04:17 [place] PM T [facility] Dec 10, 97.8 F 93 125/74 20 /min 95 % 0 [place] 2021 01:40 /min mm[Hg] R[place] PM T [facility] Dec 10, 231.9 32 [place] 2021 10:22 lb RIVER AM [facility] Social History: Smoking Status (Most current) [...] [facility] May 01, 2016 03:11 PM QUIT TOBACCO USE IN PAST YEAR [facility] May 01, 2016 11:19 AM QUIT TOBACCO USE IN PAST YEAR [facility] Mar 16, 2016 12:50 PM V1-PT DECLINES REF TO TOBACCO [facility] CESS [facility] Mar 16, 2016 12:50 PM V1-PT THINKING ABOUT QUIT [facility] TOBACCO USE Aug 12, 2015 08:48 [...] W/WO CONTRAST: MARYELLEN LONG LUCAS LARES N [id number] -1950 [facility] Exm Date: DEC 13, 2021@12:57 Req Phys: ISATU TODD Loc: OP Unknown/0 12-15-2021@13:20 Img Loc: MRI IMAGING ([facility]OS) Service: [facility] MEDICINE (Case [id number] COMPLETE) MRI ABDOMEN W/WO CONTRAST (M RI Detailed) CPT:32160 Reason for Study: further characterization of a [...] new lyphadenopathy REQUESTING MD: Isatu Todd PAGER: [phone] PHONE: [phone] Weight: 232.2 lb [105.32 kg] (12/12/2021 05:00) [...] patient will need to arrange for a transportation driver to take him/her home after [...] 15, 2021 Date Verified: DEC 15, 2021 Gang Worker E-Sig:/ES/MARYELLEN LONG Report: MRI ABDOMEN W/WO CONTRAST [...] MALIGNANCY Primary Interpreting Staff: Staff AMELIA THOMAS (Gang Worker) / Dec 10, 2021 09:[address] ABDOMEN & PELVIS: RADIOLOGY,OUTSIDE [facility] LUCAS MEEK N [id number] -1950 [facility] Exm Date: DEC 10, 2021@09:30 Req Phys: ISATU TODD Loc: MED/12-10@10:57 Img Loc: CT SCAN ([facility]OS) [facility] [facility] (Case [id number] COMPLETE) CT ABD & PELVIS WITHOUT CONT RAST (CT Detailed) CPT:13259 Reason for Study: 71 yo male with [...] RADIOLOGY [phone] to speak to the appropriate shampoo technician. Report Status: Verified Date Reported: DEC 10, 2021 Date Verified: DEC 10, 2021 Gang Worker E-Sig: Report: EXAM: CT abdomen and pelvis [...] ph nodes. READING PHYSICIAN: Ramone Munoz D.O. [phone] 12/10/2021 10:55 EDT [facility] National Teleradiology Program [phone] (For Medical Practitioner Use Only ) [address] [place] [address] Attention Patients / Veterans: If you have ques tions or concerns about these test results, please [facility] or primary care team. Primary Diagnostic Code: SIGNIFICANT ABNORMALIT Y, ATTN NEEDED Primary Interpreting Staff: RADIOLOGY,OUTSIDE SERVICE, Staff Physician / Dec 09, 2021 07:34 AM BASW (MODIFIED): JESSIE CHENEY [facility] LUCAS MEEK N [id number] -1950 M [facility] Exm Date: DEC 09, 2021@07:34 Req Phys: ISATU TODD Loc: 1S MED/12-09@11:26 Img Loc: XRAY (OOS) Service: [facility] MEDICINE (Case [id number] COMPLETE) BASW (MODIFIED) (RAD Detaile d) CPT:32273 Contrast Media : Barium Reason for Study: dysphagia ?esophageal spasm Clinical History: Report Status: Verified Date Reported: DEC 09, 2021 Date Verified: DEC 09, 2021 Gang Worker E-Sig:/ES/JESSIE CHENEY Report: BASW (MODIFIED) , 12/09/2021 [...] REQUIRED Primary Interpreting Staff: JESSIE CHENEY, RADIOLOGIST (Gang Worker) /TLC Dec 06, 2021 12:[address] CHEST (INCLUDES ADRENALS): JESSIE CHENEY [facility] LUCAS MEEK N [id number] -1950 M [facility] Exm Date: DEC 06, 2021@12:59 Req Phys: GONZALOJELANI Loc: [facility] ED DAYS M 1RD (Req'g Loc) Img Loc: CT SCAN (OOS) Service: Unknown (Case [id number] COMPLETE) CT THORAX W/O CONT (CT Detai led) CPT:28366 Reason for Study: Opacification right chest Clinical History: No contrast allergy BUN: 13 (12/06/21 12:00) CREATI: 0.90 (12/06/21 12:00) eGFR 05/16/21 09:43 52 L Weight: 232.6 lb [105.51 kg] (12/06/2021 11:40) BODY MASS INDEX - NO HEIGHTS FOUND Pager number: [phone] STAT orders MUST be called t o RADIOLOGY [phone] to speak to the appropriate shampoo technician. Indications - Other: Opacification right chest, covid positive, lung cancer histo Report Status: Verified Date Reported: DEC 06, 2021 Date Verified: DEC 06, 2021 Gang Worker E-Sig:/ES/JESSIE CHENEY Report: CT THORAX W/O CONT [...] REQUIRED Primary Interpreting Staff: JESSIE CHENEY, RADIOLOGIST (Gang Worker) Primary Interpreting Resident: PRINCE CHAMPION, Resident /BR Dec 06, 2021 11:58 AM CHEST SINGLE VIEW: JESSIE CHENEY DOUGLAS N [id number] -1950 M [facility] Exm Date: DEC 06, 2021@11:58 Req Phys: JELANI SÁNCHEZ Pat Loc: [facility] ED DAYS M 1RD (Req'g Loc) Img Loc: XRAY (OOS) Service: Unknown (Case [id number] COMPLETE) CHEST SINGLE VIEW (RAD Detai led) CPT:67995 Proc Modifiers : PORTABLE EXAM Reason for Study: SOB, home covid test positive Clinical History: Report Status: Verified Date Reported: DEC 06, 2021 Date Verified: DEC 06, 2021 Gang Worker E-Sig:/ES/JESSIE CHENEY Report: Exam type: Chest x-ray [...] REQUIRED Primary Interpreting Staff: JESSIE CHENEY, RADIOLOGIST (Gang Worker) /TLC Pathology Reports: +/- 30 days of [...] MILLER LOCAL TITLE: LR SURGICAL PATHOLOGY REPORT [facility] STANDARD TITLE: PATHOLOGY REPORT DATE OF NOTE: JAN 03, 2022@10:28:01 ENTRY DATE: JAN 03, 2022@10:28:01 AUTHOR: NIURKA MILLER EXP COSIGNER: URGENCY: STATUS: COMPLETED $APHDR Reporting Lab: [facility] [CLIA# [id number]] [address] [place] [address] - - - - - - [...] automatically d ocumented from SURGERY package case #[id number] Field (#32) PRINCIPAL PRE-OP DIAGNOSIS, (#.72) OTHER [...] automatically d ocumented from SURGERY package case #[id number] Field (#34) PRINCIPAL POST-OP DIAG, (#.74) OTHER [...] Label: Lucas Meek Paperwork: Lucas Meek Cassette: [id number];..;KALYANI;.;405;[id number] Specimen is labeled: ES bx Received in formalin are several pieces of pale boyd and brown tissue, 1.2 x 0.7 cm in aggregate. Submitted entirely in 1 cassette [id number];..;KALYANI;.;405;[id number] SAW 12/15/2021 Microscopic exam: *+* MODIFIED REPORT [...] report in rendering the final pathologic diagnosis. [address] [address] CPT: 06346 /emely/ NIURKA eYung MD Signed Jan 03, 2022@10:28 Performing Laboratory: Surgical Pathology Report Performed By: [facility] [CLIA# [id number]] [address] [place] [address] $FTR - - - - - [...] - - LUCAS MEEK STANDARD FORM 515 ID:[id number] SEX:M :1950 AGE: 71 LOC: SDM END PCP: Isatu Todd /emely/ NIURKA MILLER Staff Signed: 01/03/2022 10:28 Dec 21, 2021 11:46 AM LR SURGICAL PATHOLOGY REPORT: STEFANY MILLER [facility] LOCAL TITLE: LR SURGICAL PATHOLOGY REPORT [facility] STANDARD TITLE: PATHOLOGY REPORT DATE OF NOTE: DEC 21, 2021@11:46:59 ENTRY DATE: DEC 21, 2021@11:46:59 AUTHOR: NIURKA MILLER EXP COSIGNER: URGENCY: STATUS: COMPLETED $APHDR Reporting Lab: [facility] [CLIA# [id number]] [address] [place] [facility] [address] - - - - - - [...] automatically d ocumented from SURGERY package case #[id number] Field (#32) PRINCIPAL PRE-OP DIAGNOSIS, (#.72) OTHER [...] automatically d ocumented from SURGERY package case #[id number] Field (#34) PRINCIPAL POST-OP DIAG, (#.74) OTHER [...] Label: Lucas Meek Paperwork: Lucas Meek Cassette: [id number];..;KALYANI;.;296;[id number] Specimen is labeled: ES bx Received in formalin are several pieces of pale boyd and brown tissue, 1.2 x 0.7 cm in aggregate. Submitted entirely in 1 cassette [id number];..;KALYANI;.;405;[id number] SAW 12/15/2021 Microscopic exam: DIAGNOSIS: A. 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 Kendell long. TIARA Coombs was notified on 12/21/21. The attending pathologist who signature mansoor ears on this report has reviewed all diagnostic slides and has edited t he gross and/or microscopic portion of this report in rendering the final pathologic diagnosis. [address] [address] CPT: 16503 /emely/ NIURKA Yeung MD Signed Dec 21, 2021@11:46 Performing Laboratory: Surgical Pathology Report Performed By: [facility] [CLIA# [id number]] [address] [place] [address] $FTR - - - - - [...] - - LUCAS MEEK STANDARD FORM 515 ID:[id number] SEX:M :1950 AGE: 71 LOC: [facility] END PCP: Isatu Todd /charmaine Yeung MD Signed: 12/21/2021 11:46 Dec 06, 2021 03:30 PM LR MICROBIOLOGY REPORT: [facility] Reporting Lab: [facility] [CLIA# [id number]] [address] [place] [address] Accession [UID]: [id number] [[id number]] Receiv ed: Dec 06, 2021@16:14 Collection sample: BLOOD CUL T BOTTLE(NIRMAL/AERO)Collection date: Dec 06, 2021 15:30 Site/Specimen: BLOOD Provider: JELANI SÁNCHEZ Comment on specimen: LAC Test(s) ordered: BLOOD CULTURE ANAEROBI C....... completed: Dec 12, 2021 06:18 * BACTERIOLOGY FINAL REPORT => Dec 12, 2021 06:1 8 TECH CODE: [id number] Bacteriology Remark(s): NO GROWTH IN 5 DAYS =--=--=--=--=--=--=--=--=--=--=--=--=--= --=--=--=--=--=--=--=--=--=--=--=--=-- Performing Laboratory: Bacteriology Report Performed By: [facility] [CLIA# [id number]] [address] [place] [address] Dec 06, 2021 03:30 PM LR MICROBIOLOGY REPORT: [facility] Reporting Lab: [facility] [CLIA# [id number]] [address] [place] [address] Accession [UID]: [id number] [[id number]] Receiv ed: Dec 06, 2021@16:14 Collection sample: BLOOD CUL T BOTTLE(NIRMAL/AERO)Collection date: Dec 06, 2021 15:30 Site/Specimen: BLOOD Provider: JELANI SÁNCHEZ Comment on specimen: LAC Test(s) ordered: BLOOD CULTURE AEROBIC. ........ completed: Dec 12, 2021 06:17 * BACTERIOLOGY FINAL REPORT => Dec 12, 2021 06:1 7 TECH CODE: [id number] Bacteriology Remark(s): NO GROWTH IN 5 DAYS =--=--=--=--=--=--=--=--=--=--=--=--=--= --=--=--=--=--=--=--=--=--=--=--=--=-- Performing Laboratory: Bacteriology Report Performed By: [facility] [CLIA# [id number]] [address] [place] [address]
--- OUTSIDE RECORDS SUMMARY | 2022-01-19 09:07 | XMS_ITS ---
DAILY HOSPITALIZATION DATA [facility] Encounter Summary Created on:December 11, 2021 Patient:LUCAS MEEK Sex:Male :1950 Author Organization [facility] Address [address] [place] [address] Support Name Relationship Address Phone YUSRA MEEK Unavailable [address] [place] [address] YUSRA MEEK Unavailable [address] [place] [facility] [address] CLAY MOSLEY Unavailable Unavailable SJ SANTACRUZ Unavailable [...] MEDICARE MEDICARE PART Jun 18, PART A [id number] DO KALYANI PATIENT (WNR) (M) A 2016 13A 1 U[place]AS MEDICARE MEDICARE PART Jun 18, PART B [id number] DO KALYANI PATIENT (WNR) (M) B 2016 13A 1 [place] MEDICARE MEDICARE PART Jun 18, PART A [id number] KALYANIDO PATIENT (WNR) (M) A 2017 VH81 2 [place]AS MEDICARE MEDICARE PART Jun 18, PART B [id number] DO KALYANI PATIENT (WNR) (M) B 2017 VH81 2 [place] UNITED MEDICARE MCR(Jun 18 [id number] Luz MEEK PATIENT HEALTHCARE ADVANTAGE NR) 2021 37 0 [facility] (WNR) Selected Encounter This section includes the information on record at [place] for the Encounter. Date/Time Encounter Type Encounter Description Reason Provider Source Dec 11, 2021 12:05 Inpatient Visit DAILY HOSPITALIZATION DATA AM [facility] Encounter Template Text not used by [place] [...] [place] [facility] Jan 10, 2022 11:30 AM AMBULATORY - [facility]INE [facility] Jan 24, 2022 08:00 AM [place] [facility] Feb 21, 2022 10:00 AM [place] [facility] Mar 21, 2022 10:30 AM [...] The data comes from all [place] treatment [facility]. Test Date/Time Test Type Test Details Facility Name October 31, 2021 07:37 AM Consult Order COMMUNITY CARE-EGD [facility] Cons [facility] [employer] November 15, 2021 10:37 AM Consult Order [facility] CARE-PODIATRY Cons [employer] Dec 06, 2021 12:52 PM [place]acy [place] Infusion Order [facility] Dec 06, 2021 03:24 PM [place]acy [place] [facility] Dec 06, 2021 03:40 PM [place]acy [place] Order [facility] Dec 15, 2021 08:41 AM Consult Order SPEECH PATHOLOGY [place] OUTPAT[place] Cons [facility] [employer] Jan 15, 2022 10:08 PM Consult Order [facility] CARE-PALLIATIVE CARE Cons [facility] [employer] [facility] Lab Results: +/- 30 days of [...] Reference Range Comment Dec 15, 2021 [place] P4 GLU,BUN,CREAT,LYTES,CA Speci men Type: PLASMA 06:43 AM [facility] Comment: Tests performed on [email or web address] (405) SN:[id number] Ordering Provid er: ISATU TODD Report Released Date/Time: Dec 11, 2021 07:42 AM Reporting Lab: [facility] T [facility] [address] [facility] [address] Performing Lab: [facility] [address] [facility] [address] UREA NITROGEN 9 7-25 SODIUM 137 135-145 POTASSIUM 3.8 3.5-5.0 CHLORIDE 105 100-110 CARBON DIOXIDE 26 20-30 ANION GAP 6 4-16 GLUCOSE 102 H 65-100 CREATININE 0.64 0.5-1.5 CALCIUM 8.1 L 8.5-10.5 eGFR(CKD-EPI 2020) >90.0 >60 Dec 15, 2021 06:43 AM [facility] CBC PROFILE Sp ecimen Type: BLOOD No comment enter ed. Ordering Provid er: ISATU TODD Report Released Date/Time: Dec 10, 2021 07:22 AM Reporting Lab: [facility] T [facility] [address] [facility] [address] Performing Lab: [facility] [address] [facility] [address] WBC 5.7 4.5-11.0 RBC 4.22 L 4.23-5.66 [...] ABSOLUTE NRBC 0.00 0-0 Dec 14, 2021 [facility] CYTOGENETIC Specimen Type: ESOPHAGUS 02:59 PM [facility] FISH([facility]) Comment: ~For T est: CYTOGENETIC FISH([facility]) ~FISH HER 2 NUE, FFPE See full report in [employer] Image display viewer/tab#LAB-Reference Ordering Provid er: NIURKA MILLER Report Released Date/Time: Dec 21, 2021 12:11 PM Reporting Lab: [facility] [address] [facility] [address] Performing Lab: [facility] CYTOGENETIC FISH([facility]) comment Dec 14, 2021 [facility] P4 GLU,BUN,CREAT,LYTES,CA Speci men Type: PLASMA 06:27 AM [facility] Comment: Tests performed on [email or web address] (405) SN:[id number] Ordering Provid er: ISATU TODD Report Released Date/Time: Dec 11, 2021 07:42 AM Reporting Lab: [facility] [address] [facility] [address] Performing Lab: [facility] [address] [facility] [address] UREA NITROGEN 10 7-25 SODIUM 137 135-145 [...] Reporting Lab: [facility] [address] [facility] [address] Performing Lab: [facility] [address] [facility] [address] WBC 6.0 4.5-11.0 RBC 4.29 4.23-5.66 HGB [...] ABSOLUTE NRBC 0.00 0-0 Dec 13, 2021 [facility] P4 GLU,BUN,CREAT,LYTES,CA Speci men Type: PLASMA 06:34 AM [facility] Comment: Tests performed on [email or web address] (405) SN:[id number] Ordering Provid er: ISATU TODD Report Released Date/Time: Dec 11, 2021 07:42 AM Reporting Lab: [facility] [address] [facility] [address] Per[facility]: [facility] [address] [facility] [address] UREA NITROGEN 12 7-25 SODIUM 136 135-145 [...] Reporting Lab: [facility] [address] [facility] [address] Performing Lab: [facility] [address] [facility] [address] WBC 5.6 4.5-11.0 RBC 4.28 4.23-5.66 HGB [...] ABSOLUTE NRBC 0.00 0-0 Dec 12, 2021 [facility] P4 GLU,BUN,CREAT,LYTES,CA Speci men Type: PLASMA 06:21 AM [facility] Comment: Tests performed on [email or web address] (405) SN:[id number] Ordering Provid er: ISATU TODD Report Released Date/Time: Dec 11, 2021 07:42 AM Reporting Lab: [facility] [address] [facility] [address] Performing Lab: [facility] [address] [facility] [address] UREA NITROGEN 11 7-25 SODIUM 139 135-145 [...] Dec 10, 2021 07:22 AM Reporting Lab: [facility] [address] [facility] [address] Performing Lab: [facility] [address] [facility] [address] WBC 5.5 4.5-11.0 RBC 4.37 4.23-5.66 HGB [...] 0.00 0-0 Dec 12, 2021 06:00 AM [facility]inet[facility]T [facility] MAGNESIUM Sp ecimen Type: PLASMA Comment: Testin g Performed on [email or web address] (405) SN:[id number] Ordering Provid er: ISATU TODD Report Released Date/Time: Dec 12, 2021 08:24 AM Reporting Lab: [place] [facility] [address] [facility] [address] Performing Lab: [employer] [place] BrandtologyT Coda PaymentsMROC [address] [facility] [address] MAGNESIUM 1.8 1.6-2.6 Dec 12, 2021 06:00 AM CinetrafficT [employer] PaymentsMROC PHOSPHORUS Sp ecimen Type: PLASMA Comment: Testin g Performed on [email or web address] (405) SN:[id number] Ordering Provid er: ISATU TODD Report Released Date/Time: Dec 12, 2021 08:24 AM Reporting Lab: [place] [facility] [address] [facility] [address] Performing Lab: [place] [facility]T [facility]mentsMR[facility] [address] [facility] [address] PHOSPHORUS 3.1 2.5-5.0 Dec 11, 2021 06:15 AM [employer] [place] BrandtologyT Coda PaymentsMROC ELECTROLYTES Sp ecimen Type: PLASMA Comment: Tests performed on [email or web address] (405) SN:[id number] Ordering Provid er: ISATU TODD Report Released Date/Time: Dec 10, 2021 07:22 AM Reporting Lab: [place] [facility] [address] [facility] [address] Performing Lab: [place] [facility] [address] [facility] [address] SODIUM 137 135-145 POTASSIUM 4.3 3.5-5.0 CHLORIDE 108 100-110 CARBON DIOXIDE 20 20-30 ANION GAP 9 4-16 Dec 11, 2021 06:15 AM [place] RoomtagT [facility] CBC PROFILE Sp ecimen Type: BLOOD Comment: Result s checked Ordering Provid er: ISATU TODD Report Released Date/Time: Dec 10, 2021 07:22 AM Reporting Lab: [place] OMEGAT [facility] [address] [facility] [address] Performing Lab: [place] OMEGAT [facility] [address] [facility] [address] WBC 5.8 4.5-11.0 RBC 4.37 4.23-5.66 HGB [...] 0.00 0-0 Dec 11, 2021 06:00 AM [facility] PHOSPHORUS Sp ecimen Type: PLASMA Comment: Tests performed on [email or web address] (067) SN:[id number] Results checked Ordering Provid er: ISATU TODD Report Released Date/Time: Dec 11, 2021 07:44 AM Reporting Lab: [facility] [facility] [address] [facility] [address] Performing Lab: [place] OMEGAT FLMROC [address] [facility] [address] PHOSPHORUS 3.0 2.5-5.0 Dec 10, 2021 08:05 AM [place] [facility] MAGNESIUM Sp ecimen Type: PLASMA Comment: [place] [id number] on Dec 10, 2021@08:31 Tests performed on [email or web address] (405) SN:[id number] Ordering Provid er: ISATU TODD Report Released Date/Time: Dec 10, 2021 07:22 AM Reporting Lab: [place] [facility] [address] [facility] [place] [address] Performing Lab: [place] [facility] [address] [facility] [place] [address] MAGNESIUM 1.7 1.6-2.6 Dec 10, 2021 08:05 AM [place] [facility] PHOSPHORUS Sp ecimen Type: PLASMA Comment: [place] [id number] on Dec 10, 2021@08:31 Tests performed on [email or web address] (405) SN:[id number] Ordering Provid er: ISATU TODD Report Released Date/Time: Dec 10, 2021 07:22 AM Reporting Lab: [place] [facility] [address] [facility] [place] [address] Performing Lab: [place] [facility] [address] [facility] [place] [address] PHOSPHORUS 1.8 L 2.5-5.0 Dec 10, 2021 08:05 AM [place] UREA NITROGEN Specimen Type: PLASMA [facility] Comment: [place] [id number] on Dec 10, 2021@08:31 Tests performed on [email or web address] (405) SN:[id number] Ordering Provid er: ISATU TODD Report Released Date/Time: Dec 10, 2021 07:22 AM Reporting Lab: [place] [facility] [address] [facility] [place] [address] Performing Lab: [place] [facility] [address] [facility] [place] [address] UREA NITROGEN 8 7-25 Dec 10, 2021 08:05 AM [place] [facility] GLUCOSE Sp ecimen Type: PLASMA Comment: [place] [id number] on Dec 10, 2021@08:31 Tests performed on [email or web address] (405) SN:[id number] Ordering Provid er: ISATU TODD Report Released Date/Time: Dec 10, 2021 07:22 AM Reporting Lab: [place] [facility] [address] [facility] [address] Performing Lab: [place] [facility] [address] [facility] [address] GLUCOSE 144 H 65-100 Dec 10, 2021 08:05 AM [place] [facility] ELECTROLYTES Sp ecimen Type: PLASMA Comment: [place] [id number] on Dec 10, 2021@08:31 Tests performed on [email or web address] (405) SN:[id number] Ordering Provid er: ISATU TODD Report Released Date/Time: Dec 10, 2021 07:22 AM Reporting Lab: [place] [facility] [address] [facility] [address] Performing Lab: [place] [facility] [address] [facility] [address] SODIUM 139 135-145 POTASSIUM 3.7 3.5-5.0 CHLORIDE 107 100-110 CARBON DIOXIDE 24 20-30 ANION GAP 8 4-16 Dec 10, 2021 08:05 AM [place] [facility] CALCIUM Sp ecimen Type: PLASMA Comment: [place] [id number] on Dec 10, 2021@08:31 Tests performed on [email or web address] (405) SN:[id number] Ordering Provid er: ISATU TODD Report Released Date/Time: Dec 10, 2021 07:22 AM Reporting Lab: [place] [facility] [address] [facility] [address] Performing Lab: [place] [facility] [address] [facility] [address] CALCIUM 8.3 L 8.5-10.5 Dec 10, 2021 08:05 AM [place] [facility] CBC PROFILE Sp ecimen Type: BLOOD No comment enter ed. Ordering Provid er: ISATU TODD Report Released Date/Time: Dec 10, 2021 07:22 AM Reporting Lab: [place] [facility] [address] [facility] [address] Performing Lab: [place] [facility] [address] [facility] [address] WBC 7.0 4.5-11.0 RBC 4.54 4.23-5.66 HGB [...] PLASMA AM [facility] PANEL [place]: [place] [id number] on Dec 10, 2021@08:31 Tests performed on [email or web address] (405) SN:[id number] Ordering Provid er: ISATU TODD Report Released Date/Time: Dec 10, 2021 07:22 AM Reporting Lab: [facility] [address] [facility] [address] Performing Lab: [facility] [address] [facility] [address] CREATININE 0.78 0.5-1.5 eGFR(CKD-EPI 2020) >90.0 >60 Dec 09, 2021 06:46 AM [place] [facility] MAGNESIUM Sp ecimen Type: PLASMA Comment: Tests performed on [email or web address] (405) SN:[id number] Ordering Provid er: ISATU TODD Report Released Date/Time: Dec 08, 2021 10:23 AM Reporting Lab: [place] [facility] [address] [facility] [address] Performing Lab: [place] [facility] [address] [facility] [address] MAGNESIUM 1.6 1.6-2.6 Dec 09, 2021 [facility] P4 GLU,BUN,CREAT,LYTES,CA Speci men Type: PLASMA 06:46 AM [facility] Comment: Tests performed on [email or web address] (405) SN:[id number] Ordering Provid er: ISATU TODD Report Released Date/Time: Dec 08, 2021 05:00 PM Reporting Lab: [facility] [address] [facility] [address] Performing Lab: [facility] [address] [facility] [address] UREA NITROGEN 6 L 7-25 SODIUM 134 [...] Reporting Lab: [facility] [address] [facility] [address] Performing Lab: [facility] [address] [facility] [address] WBC 7.1 4.5-11.0 RBC 4.40 4.23-5.66 HGB [...] 0.00 0-0 Dec 08, 2021 06:39 AM [place] [employer] T [facility] MAGNESIUM Sp ecimen Type: PLASMA Comment: Testin g Performed on [email or web address] (405) SN:[id number] Ordering Provid er: ISATU TODD Report Released Date/Time: Dec 07, 2021 10:32 AM Reporting Lab: [facility] [address] [facility] [address] Performing Lab: [facility] [address] [facility] [address] MAGNESIUM 1.5 L 1.6-2.6 Dec 08, 2021 [place] [employer] T P4 GLU,BUN,CREAT,LYTES,CA Speci men Type: PLASMA 06:39 AM [facility] Comment: Testin g Performed on [email or web address] (405) SN:[id number] Ordering Provid er: ISATU TODD Report Released Date/Time: Dec 07, 2021 10:32 AM Reporting Lab: [employer] T [facility] [address] [facility] [address] Performing Lab: [facility] [address] [facility] [address] UREA NITROGEN 6 L 7-25 SODIUM 136 135-145 POTASSIUM 3.3 L 3.5-5.0 CHLORIDE 104 100-110 CARBON DIOXIDE 22 20-30 ANION GAP 10 4-16 GLUCOSE 133 H 65-100 CREATININE 0.76 0.5-1.5 CALCIUM 8.4 L 8.5-10.5 eGFR(CKD-EPI 2020) >90.0 >60 Dec 08, 2021 06:39 AM [place] [employer] T [facility] CBC PROFILE Sp ecimen Type: BLOOD No comment enter ed. Ordering Provid er: ISATU TODD Report Released Date/Time: Dec 07, 2021 10:32 AM Reporting Lab: [facility] [address] [facility] [address] Performing Lab: [facility] [address] [place] [...] NRBC 0.00 0-0 Dec 07, 2021 06:42 [facility] LIVER PROFILE Specimen Typ e: PLASMA AM [facility] Comment: Tests performed on [email or web address] (405 SN:[id number] Ordering Provid er: PORFIRIO WALTERS Report Released Date/Time: Dec 06, 2021 06:57 PM Reporting Lab: [facility] [address] [facility] [address] Performing Lab: [facility] [address] [facility] [address] PROTEIN, TOTAL 5.7 L 6.0-8.5 ALBUMIN 2.4 L 3.2-5.0 BILIRUBIN, TOTAL 0.4 0.2-1.2 ALKALINE PHOSPHATASE 109 40-150 ALT(SGPT) 10 7-52 AST(SGOT) 15 5-34 FIB-4 SCORE 1.92 <2.67 Dec 07, 2021 [facility] P4 GLU,BUN,CREAT,LYTES,CA Speci men Type: PLASMA 06:42 AM [facility] Comment: Tests performed on [email or web address] (405) SN:[id number] Ordering Provid er: PORFIRIO WALTERS Report Released Date/Time: Dec 06, 2021 06:57 PM Reporting Lab: [place] [facility] [address] [facility] [address] Performing Lab: [place] [facility] [address] [facility] [address] UREA NITROGEN 9 7-25 SODIUM 135 135-145 POTASSIUM 3.5 3.5-5.0 CHLORIDE 103 100-110 CARBON DIOXIDE 22 20-30 ANION GAP 10 4-16 GLUCOSE 92 65-100 CREATININE 0.73 0.5-1.5 CALCIUM 8.0 L 8.5-10.5 eGFR(CKD-EPI 2020) >90.0 >60 Dec 07, 2021 06:42 AM [place] CBC PROFILE Specimen Type: BLOOD [facility] No comment enter ed. Ordering Provid er: PORFIRIO WALTERS Report Released Date/Time: Dec 06, 2021 06:57 PM Reporting Lab: [place] [facility] [address] [facility] [address] Performing Lab: [facility] [address] [facility] [address] WBC 5.7 4.5-11.0 RBC 4.15 L 4.23-5.66 [...] [facility]AM[facility] %) AUTOMATED Comment: Tests performed on [email or web address] (405) SN:[id number] Ordering Provid er: ISATU TODD Report Released Date/Time: Dec 07, 2021 10:28 AM Reporting Lab: [place] [facility] [address] [facility] [address] Performing Lab: [place] [facility] [address] [facility] [address] RETICULOCYTES (%) AUTOMATED 1.23 0. 6-2.0 RETICULOCYTES (ABS) AUTOMATED 0.052 0.030-0.090 Dec 06, 2021 09:45 [place] MRSA SURVL NARES Specimen Ty pe: NARES PM [facility] DNA No comment enter ed. Ordering Provid er: ALVARO VARGHESE Report Released Date/Time: Dec 07, 2021 02:20 AM Reporting Lab: [place] [facility] [address] [facility] [address] Performing Lab: [place] [facility] [address] [facility] [address] MRSA SURVL NARES DNA NEGATIVE NEGATIVE Dec 06, 2021 06:00 [place] URINALYSIS W/REFLEX TO Speci men Type: URINE PM [facility] CULTURE No comment enter ed. Ordering Provid er: JELANI SÁNCHEZ Report Released Date/Time: Dec 06, 2021 11:57 AM Reporting Lab: [place] [facility] [address] [facility] [address] Performing Lab: [place] [facility] [address] [facility] [address] URINE COLOR Arlin YELLOW SPECIFIC GRAVITY 1.029 [...] 21, RIVER VARIANT Comment: https://www.cdc.gov/coronavirus/2019-ncov/cases-updates/variant- surveillance/variant-info.html The [employer] SARS CoV 2 [employer] Assay-GX is a next-generation sequencing (NGS) assa 2021 [facility] SEQUENCING y that determine s the complete genome sequence of the SARS-CoV-2 virus. The assay contains variant-tolerant primers to broaden and improve the coverage for variant detection and increase the sensitivity 12:00 [facility] PNL(WH) of the panel to enable detection from lower viral titer samples. The assay is run on the [employer] Sequencer, which performs automated library preparation, sequencing, analysis, and reporting. PM The sequence an alysis includes determination of viral phylogenetic lineage by comparison to the reference strain Wuhan-Hu-1, GenBank: [id number]. Sequence determination may not be possible owing [...] and its performance characteristics determined by the [facility] Molecular Diagnostics Laboratory, which is certified under the Clinical Laboratory Improveme nt Amendments (C MARCO) as qualified to perform high complexity clinical laboratory testing. This test is validated for clinical use at [facility] and should not be regarded as investigational or for research. The FDA does not require this test to go through premarket FDA review, and therefore it has not been cleared or approved by the FDA. This report was reviewed and approved by the on-service pathologist. Ordering Provid er: JELANI SÁNCHEZ Report Released Date/Time: Dec 06, 2021 01:13 PM Reporting Lab: [facility] [address] [facility] [address] Performing Lab: [facility] [address] [facility] [place] [address] SARS-CoV-2 CLADE() 22C (OMICRON) SARS-CoV-2 LINEAGE() BA.2.12.1 Dec 06, 2021 12:00 [facility] COVID-19 AG SCREEN Specimen Type: NASAL CAVITY PM [facility] PANEL BINAX(405) Comment: Testi ng Performed By: Mike Briscoe Ordering Provid er: JELANI SÁNCHEZ Report Released Date/Time: Dec 08, 2021 08:23 AM Reporting Lab: [facility] [address] [facility] [address] Performing Lab: [facility] [address] [facility] [address] COVID-19 AG SCRN(wrj BINAX) POSITIVE HH NE G Dec 06, 2021 12:00 PM [facility] LIVER PROFILE Sp ecimen Type: PLASMA Comment: Testin g Performed on Pham Vocational Nurse Lvn (405) SN:[id number] Ordering Provid er: JELANI SÁNCHEZ Report Released Date/Time: Dec 06, 2021 11:57 AM Reporting Lab: [facility] [address] [facility] [address] Performing Lab: [facility] [address] [facility] [address] PROTEIN, TOTAL 6.6 6.0-8.5 ALBUMIN 2.8 L 3.2-5.0 BILIRUBIN, TOTAL 0.6 0.2-1.2 ALKALINE PHOSPHATASE 134 40-150 ALT(SGPT) 13 7-52 AST(SGOT) 18 5-34 FIB-4 SCORE 1.94 <2.67 Dec 06, 2021 12:00 [facility] Sp ecimen Type: PLASMA Comment: Tests performed on Pham V[employer]ational Nurse Lvn (405) SN:[id number] Ordering Provid er: JELANI SÁNCHEZ Report Released Date/Time: Dec 06, 2021 11:57 AM Reporting Lab: [facility] [address] [facility] [address] Performing Lab: [facility] [address] [facility] [address] TROPONIN II 0.03 0.00-0.29 Dec 06, 2021 [facility] P4 GLU,BUN,CREAT,LYTES,CA Speci men Type: PLASMA 12:00 PM [facility] Comment: Testin g Performed on Pham Vocational Nurse Lvn (405) SN:[id number] Ordering Provid er: JELANI SÁNCHEZ Report Released Date/Time: Dec 06, 2021 11:57 AM Reporting Lab: [facility] [address] [facility] [address] Performing Lab: [facility] [address] [facility] [address] UREA NITROGEN 13 7-25 SODIUM 138 135-145 POTASSIUM 3.8 3.5-5.0 CHLORIDE 103 100-110 CARBON DIOXIDE 23 20-30 ANION GAP 12 4-16 GLUCOSE 105 H 65-100 CREATININE 0.90 0.5-1.5 CALCIUM 8.7 8.5-10.5 eGFR(CKD-EPI 2020) >90.0 >60 Dec 06, 2021 12:00 PM [facility] BNP(P) Sp ecimen Type: PLASMA Comment: Tests performed on Pham Vocational Nurse Lvn (405) SN:[id number] Ordering Provid er: JELANI SÁNCHEZ Report Released Date/Time: Dec 06, 2021 11:57 AM Reporting Lab: [facility] [address] [facility] [address] Performing Lab: [facility] [address] [facility] [address] BNP(P) 224.8 H 10-100 Dec 06, 2021 [facility] [place] COVID-19+FLU/RSV DIAGNOSTIC Spe cimen Type: NASOPHARYNX 12:00 PM [facility] PANEL(405) Comment: Tests performed on Plumxpert (405) Critical results called to and read back by: ALESHIA WILKINSON RN 12/06/21 @ 1312 Ordering Provid er: JELANI SÁNCHEZ Report Released Date/Time: Dec 06, 2021 11:57 AM Reporting Lab: [facility] [address] [facility] [id number] Performing Lab: [facility] [address] [facility] [address] FLU A(PCR) NEGATIVE NEGATIVE FLU B(PCR) NEGATIVE NEGATIVE RSV(PCR) NEGATIVE NEGATIVE COVID-19(ELA-[id number]-[id number]) DETECTED HH NO T DETECTED Dec 06, 2021 12:00 PM [facility] Sp ecimen Type: BLOOD No comment enter ed. Ordering Provid er: JELANI SÁNCHEZ Report Released Date/Time: Dec 06, 2021 11:57 AM Reporting Lab: [facility] [address] [facility] [address] Performing Lab: [facility] [address] [facility] [address] WBC 7.2 4.5-11.0 RBC 4.86 4.23-5.66 HGB [...] dy Source Pressure Rate Mass Index Dec 11, 98.3 F 92 121/65 18 /min 97 % 3 WHITE 2021 07:56 /min mm[Hg] RIVER PM T [facility] Dec 11, 3 WHITE 2021 07:49 RIVER PM T [facility] Dec 11, 98.3 F 98 127/83 18 /min 97 % 0 WHITE 2021 02:50 /min mm[Hg] RIVER PM T [facility] Dec 11, 0 WHITE 2021 01:57 RIVER PM T [facility] Dec 11, 0 WHITE 2021 08:49 RIVER AM [facility] Social History: Smoking Status (Most current) [...] took place. Date/Time Smoking Status/Tobacco Use Comment [facility] Apr 01, 2020 01:16 [...] TOBACCO USE IN PAST YEAR CAREY MONTOYA [facility] Mar 16, 2016 12:50 PM V1-PT [...] W/WO CONTRAST: MARYELLEN LONG LUCAS LARES N [id number] -1950 [facility] Exm Date: DEC 13, 2021@12:57 Req Phys: ISATU TODD Loc: OP Unknown/0 12-15-2021@13:20 Img Loc: MRI IMAGING (OOS) Service: ZGENERAL MEDICINE (Case [id number] COMPLETE) MRI ABDOMEN W/WO CONTRAST (M RI Detailed) CPT:73388 Reason for Study: further characterization of a [...] new lyphadenopathy REQUESTING MD: Isatu Todd PAGER: [phone] PHONE: [phone] Weight: 232.2 lb [105.32 kg] (12/12/2021 05:00) [...] patient will need to arrange for a port cdl a driver to take him/her home after the [...] 15, 2021 Date Verified: DEC 15, 2021 Glass Mould Cleaner E-Sig:/ES/MARYELLEN LONG Report: MRI ABDOMEN W/WO CONTRAST [...] MALIGNANCY Primary Interpreting Staff: Staff AMELIA THOMAS (Glass Mould Cleaner) / Dec 10, 2021 09:[address] ABDOMEN & PELVIS: [facility] LUC[facility] N [id number] -1950 M SERVICE [facility] Exm Date: DEC 10, 2021@09:30 Req Phys: ISATU TODD Loc: 1S MED/12-10@10:57 Img Loc: CT SCAN (OOS) Service: [facility] MEDICINE (Case [id number] COMPLETE) CT ABD & PELVIS WITHOUT CONT RAST (CT Detailed) CPT:30490 Reason for Study: 71 yo male with [...] INDEX - NO HEIGHTS FOUND Pager number: [phone] STAT orders MUST be call ed to RADIOLOGY [phone] to speak to the appropriate automotive glass technician. Report Status: Verified Date Reported: DEC 10, 2021 Date Verified: DEC 10, 2021 Glass Mould Cleaner E-Sig: Report: EXAM: CT abdomen and pelvis [...] ph nodes. READING PHYSICIAN: Ramone Munoz D.O. [phone] 12/10/2021 10:55 EDT [facility] National Teleradiology Program [phone] (For Medical Practitioner Use Only ) [address] [facility] [facility], [facility] [address], [address] [place] [address] Attention Patients / Veterans: If you have ques tions or concerns about these test results, please contact your o rdering provider or primary care team. Primary Diagnostic Code: SIGNIFICANT ABNORMALIT Y, ATTN NEEDED Primary Interpreting Staff: RADIOLOGY,OUTSIDE SERVICE, Staff Physician / Dec 09, 2021 07:34 AM BASW (MODIFIED): JESSIE CHENEY [facility] LUCAS MEEK [id number] -1950 M [facility] Exm Date: DEC 09, 2021@07:34 Req Phys: ISATU TODD Yao Manjarrez Loc: 1S MED/12-09@11:26 Img Loc: XRAY (OOS) Service: [facility] MEDICINE (Case [id number] COMPLETE) BASW (MODIFIED) (RAD Detaile d) CPT:90516 Contrast Media : Barium Reason for Study: dysphagia ?esophageal spasm Clinical History: Report Status: Verified Date Reported: DEC 09, 2021 Date Verified: DEC 09, 2021 Glass Mould Cleaner E-Sig:/ES/JESSIE CHENEY Report: BASW (MODIFIED) , 12/09/2021 [...] REQUIRED Primary Interpreting Staff: JESSIE CHENEY, RADIOLOGIST (Glass Mould Cleaner) /TLC Dec 06, 2021 12:[address] CHEST (INCLUDES ADRENALS): [facility] [id number] -1950 M [facility] Exm Date: DEC 06, 2021@12:59 Req Phys: GONZALOJELANI Loc: [facility] ED DAYS M 1RD (Req'g Loc) Img Loc: CT SCAN (OOS) Service: Unknown (Case [id number] COMPLETE) CT THORAX W/O CONT (CT Detai led) CPT:46687 Reason for Study: Opacification right chest Clinical History: No contrast allergy BUN: 13 (12/06/21 12:00) CREATI: 0.90 (12/06/21 12:00) eGFR 05/16/21 09:43 52 L Weight: 232.6 lb [105.51 kg] (12/06/2021 11:40) BODY MASS INDEX - NO HEIGHTS FOUND Pager number: [phone] STAT orders MUST be called t o RADIOLOGY [phone] to speak to the appropriate automotive glass technician. Indications - Other: Opacification right chest, covid positive, lung cancer histo Report Status: Verified Date Reported: DEC 06, 2021 Date Verified: DEC 06, 2021 Glass Mould Cleaner E-Sig:/ES/JESSIE CHENEY Report: CT THORAX W/O CONT [...] REQUIRED Primary Interpreting Staff: JESSIE CHENEY, RADIOLOGIST (Glass Mould Cleaner) Primary Interpreting Resident: PRINCE CHAMPION, Resident /BR Dec 06, 2021 11:58 AM CHEST SINGLE VIEW: JESSIE CHENEYT LUCAS MEEK N [id number] -1950 [facility] Exm Date: DEC 06, 2021@11:58 Req Phys: JELANI SÁNCHEZ Pat Loc: [facility] ED DAYS M 1RD (Req'g Loc) Img Loc: XRAY (OOS) Service: Unknown (Case [id number] COMPLETE) CHEST SINGLE VIEW (RAD Detai led) CPT:55395 Proc Modifiers : PORTABLE EXAM Reason for Study: SOB, home covid test positive Clinical History: Report Status: Verified Date Reported: DEC 06, 2021 Date Verified: DEC 06, 2021 Glass Mould Cleaner E-Sig:/ES/JESSIE CHENEY Report: Exam type: Chest x-ray [...] REQUIRED Primary Interpreting Staff: JESSIE CHENEY, RADIOLOGIST (Glass Mould Cleaner) /TLC Pathology Reports: +/- 30 days of [...] MILLER LOCAL TITLE: LR SURGICAL PATHOLOGY REPORT [facility] STANDARD TITLE: PATHOLOGY REPORT DATE OF NOTE: JAN 03, 2022@10:28:01 ENTRY DATE: JAN 03, 2022@10:28:01 AUTHOR: NIURKA MILLER EXP COSIGNER: URGENCY: STATUS: COMPLETED $APHDR Reporting Lab: [facility]Y MONTOYA [facility] [CLIA# [id number]] [address] [place] [address] - - - - - - [...] automatically d ocumented from SURGERY package case #[id number] Field (#32) PRINCIPAL PRE-OP DIAGNOSIS, (#.72) OTHER [...] automatically d ocumented from SURGERY package case #[id number] Field (#34) PRINCIPAL POST-OP DIAG, (#.74) OTHER [...] Label: Lucas Meek Paperwork: Lucas Meek Cassette: [id number];..;KALYANI;.;405;[id number] Specimen is labeled: ES bx Received in formalin are several pieces of pale boyd and brown tissue, 1.2 x 0.7 cm in aggregate. Submitted entirely in 1 cassette [id number];..;KALYANI;.;405;[id number] SAW 12/15/2021 Microscopic exam: *+* MODIFIED REPORT *+* (Last modified: JAN 03, 2022@09:30:20 typed by NIURKA WADDELL) DIAGNOSIS: A. 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 Kendell long. TIARA Coombs was notified on 12/21/21. Modified on 01/03/22 to include report from [facility] stating that tumor is NEGATIVE for her2/ matheus amplification. The attending pathologist who signature mansoor ears on this report has reviewed all diagnostic slides and has edited t he gross and/or microscopic portion of this report in rendering the final pathologic diagnosis. [address] [address] CPT: 33925 /emely/ NIURKA Yeung MD Signed Jan 03, 2022@10:28 Performing Laboratory: Surgical Pathology Report Performed By: CAREY MONTOYA [facility] [CLIA# [id number]] [address] [place] [address] $FTR - - - - - - - - - - - - - - - - - - - - - - - - - - - - - - - - - - - - - - - - (End of report) NIURKA MILLRE MD Date Dec 20, 2021 - - - - - - - - - - - - - - - - - - - - - - - - - - - - - - - - - - - - - - - - LUCAS MEEK STANDARD FORM 515 ID:[id number] SEX:M :1950 AGE: 71 LOC: SDM END PCP: Isatu Todd /emely/ NIURKA MILLER Staff Signed: 01/03/2022 10:28 Dec 21, 2021 11:46 AM LR SURGICAL PATHOLOGY REPORT: STEFANY MILLER [facility] LOCAL TITLE: LR SURGICAL PATHOLOGY REPORT [facility] STANDARD TITLE: PATHOLOGY REPORT DATE OF NOTE: DEC 21, 2021@11:46:59 ENTRY DATE: DEC 21, 2021@11:46:59 AUTHOR: NIURKA MILLER EXP COSIGNER: URGENCY: STATUS: COMPLETED $APHDR Reporting Lab: [facility] [CLIA# [id number]] [address] [place] [address] - - - - - - [...] automatically d ocumented from SURGERY package case #[id number] Field (#32) PRINCIPAL PRE-OP DIAGNOSIS, (#.72) OTHER [...] automatically d ocumented from SURGERY package case #[id number] Field (#34) PRINCIPAL POST-OP DIAG, (#.74) OTHER [...] Label: Lucas Meek Paperwork: Lucas Meek Cassette: [id number];..;KALYANI;.;405;[id number] Specimen is labeled: ES bx Received in formalin are several pieces of pale boyd and brown tissue, 1.2 x 0.7 cm in aggregate. Submitted entirely in 1 cassette [id number];..;KALYANI;.;405;[id number] SAW 12/15/2021 Microscopic exam: DIAGNOSIS: A. 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 Kendell long. TIARA Coombs was notified on 12/21/21. The attending pathologist who signature mansoor ears on this report has reviewed all diagnostic slides and has edited t he gross and/or microscopic portion of this report in rendering the final pathologic diagnosis. [address] [address] CPT: 92143 /emely/ NIURKA Yeung MD Signed Dec 21, 2021@11:46 Performing Laboratory: Surgical Pathology Report Performed By: [facility] [CLIA# [id number]] [address] [place] [address] $FTR - - - - - [...] - - LUCAS MEEK STANDARD FORM 515 ID:[id number] SEX:M :1950 AGE: 71 LOC: [facility] END PCP: Isatu Todd /charmaine Yeung MD Signed: 12/21/2021 11:46 Dec 06, 2021 03:30 PM LR MICROBIOLOGY REPORT: [facility] Reporting Lab: [facility] [CLIA# [id number]] [address] [place] [address] Accession [UID]: [id number] [[id number]] Receiv ed: Dec 06, 2021@16:14 Collection sample: BLOOD CUL T BOTTLE(NIRMAL/AERO)Collection date: Dec 06, 2021 15:30 Site/Specimen: BLOOD Provider: JELANI SÁNCHEZ Comment on specimen: LAC Test(s) ordered: BLOOD CULTURE ANAEROBI C....... completed: Dec 12, 2021 06:18 * BACTERIOLOGY FINAL REPORT => Dec 12, 2021 06:1 8 TECH CODE: 09626 Bacteriology Remark(s): NO GROWTH IN 5 DAYS =--=--=--=--=--=--=--=--=--=--=--=--=--= --=--=--=--=--=--=--=--=--=--=--=--=-- Performing Laboratory: Bacteriology Report Performed By: [facility] [CLIA# [id number]] [address] [place] [address] Dec 06, 2021 03:30 PM LR MICROBIOLOGY REPORT: [facility] Reporting Lab: [facility] [CLIA# [id number]] [address] [place] [address] Accession [UID]: [id number] [[id number]] Receiv ed: Dec 06, 2021@16:14 Collection sample: BLOOD CUL T BOTTLE(NIRMAL/AERO)Collection date: Dec 06, 2021 15:30 Site/Specimen: BLOOD Provider: JELANI SÁNCHEZ Comment on specimen: LAC Test(s) ordered: BLOOD CULTURE AEROBIC. ........ completed: Dec 12, 2021 06:17 * BACTERIOLOGY FINAL REPORT => Dec 12, 2021 06:1 7 TECH CODE: 01570 Bacteriology Remark(s): NO GROWTH IN 5 DAYS =--=--=--=--=--=--=--=--=--=--=--=--=--= --=--=--=--=--=--=--=--=--=--=--=--=-- Performing Laboratory: Bacteriology Report Performed By: [facility] [CLIA# [id number]] [address] [place] [address]
--- OUTSIDE RECORDS SUMMARY | 2022-01-19 09:07 | XMS_ITS ---
DAILY HOSPITALIZATION DATA [facility] Encounter Summary Created on:December 10, 2021 Patient:LUCAS MEEK Sex:Male :1950 Author Organization [facility] Address [address] [place] [id number] Support Name Relationship Address Phone YUSRA MEEK Unavailable [address] [place] [address] YUSRA MEEK Unavailable [address] [place] [address] CLAY MOSLEY Unavailable Unavailable SJ SANTACRUZ Unavailable [...] MEDICARE MEDICARE PART Jun 18, PART A [id number] DO KALYANI PATIENT (WNR) (M) A 2016 13A 1 UGLAS MEDICARE MEDICARE PART Jun 18, PART B [id number] DO KALYANI PATIENT (WNR) (M) B 2016 13A 1 [place]AS MEDICARE MEDICARE PART Jun 18, PART A [id number] KALYANIDO PATIENT (WNR) (M) A 2017 VH81 2 [place]AS MEDICARE MEDICARE PART Jun 18, PART B [id number] DO KALYANI PATIENT (WNR) (M) B 2017 VH81 2 [place]AS UNITED MEDICARE MCR(Jun 18 [id number] Luz MEEK PATIENT HEALTHCARE ADVANTAGE NR) 2021 37 0 [facility] (WNR) Selected Encounter This section includes the information on record at [place] for the Encounter. Date/Time Encounter Type Encounter Description Reason Provider Source Dec 10, 2021 10:15 Inpatient Visit DAILY HOSPITALIZATION DATA PM IHE Encounter Template Text not used by [place] Plan of Treatment: Future Appointments (+ 6 [...] AM AMBULATORY - NONE [facility] Jan 06, 2022 02:00 [place] [facility] Jan 10, 2022 11:30 AM AMBULATORY - MEDICINE [facility] Jan 24, 2022 08:00 AM [place] [facility] Feb 21, 2022 10:00 AM [place] [facility] [...] The data comes from all [place] treatment [facility]. Test Date/Time Test Type Test Details Facility Name October 31, 2021 07:37 AM Consult Order COMMUNITY CARE-EGD [facility] Cons Retail Loan Originator Assistant's Choice November 15, 2021 10:37 AM Consult Order [facility] CARE-PODIATRY Cons Retail Loan Originator Assistant's Choice Dec 06, 2021 12:52 PM [...] [place] OUTPATIENT [facility] Retail Loan Originator Assistant's Choice Jan 15, 2022 10:08 PM Consult Order [facility] CARE-PALLIATIVE CARE Cons Retail Loan Originator Assistant's Choice Lab Results: +/- 30 days [...] Reference Range Comment Dec 15, 2021 [place] P4 GLU,BUN,CREAT,LYTES,CA Speci men Type: PLASMA 06:43 AM [facility] Comment: Tests performed on Metropolist (405) SN:[id number] Ordering Provid er: ISATU TODD Report Released Date/Time: Dec 11, 2021 07:42 AM Reporting Lab: [facility] T [facility] [address] [facility] [address] Performing Lab: [facility] [address] [facility] [address] UREA NITROGEN 9 7-25 SODIUM 137 135-145 POTASSIUM 3.8 3.5-5.0 CHLORIDE 105 100-110 CARBON DIOXIDE 26 20-30 ANION GAP 6 4-16 GLUCOSE 102 H 65-100 CREATININE 0.64 0.5-1.5 CALCIUM 8.1 L 8.5-10.5 eGFR(CKD-EPI 2020) >90.0 >60 Dec 15, 2021 06:43 AM [facility] CBC PROFILE Sp ecimen Type: BLOOD No comment enter ed. Ordering Provid er: ISATU TODD Report Released Date/Time: Dec 10, 2021 07:22 AM Reporting Lab: [facility] [address] [facility] [address] Performing Lab: [facility] [address] [facility] [address] WBC 5.7 4.5-11.0 RBC 4.22 L 4.23-5.66 [...] 0.00 0-0 Dec 14, 2021 [facility] CYTOGENETIC Specimen Type: ESOPHAGUS 02:59 PM [facility] FISH([facility]) Comment: ~For T est: CYTOGENETIC FISH([facility]) ~FISH HER 2 NUE, FFPE See full report in [employer] Image display viewer/tab#LAB-Reference Ordering Provid er: NIURKA MILLER Report Released Date/Time: Dec 21, 2021 12:11 PM Reporting Lab: [facility] [address] [facility] [address] Performing Lab: [facility] CYTOGENETIC FISH([facility]) comment Dec 14, 2021 [facility] P4 GLU,BUN,CREAT,LYTES,CA Speci men Type: PLASMA 06:27 AM [facility] Comment: Tests performed on Metropolist (405) SN:[id number] Ordering Provid er: ISATU TODD Report Released Date/Time: Dec 11, 2021 07:42 AM Reporting Lab: [facility] [address] [facility] [address] Performing Lab: [facility] [address] [facility] [address] UREA NITROGEN 10 7-25 SODIUM 137 135-145 POTASSIUM 4.0 3.5-5.0 CHLORIDE 104 100-110 CARBON DIOXIDE 25 20-30 ANION GAP 8 4-16 GLUCOSE 99 65-100 CREATININE 0.67 0.5-1.5 CALCIUM 8.2 L 8.5-10.5 eGFR(CKD-EPI 2020) >90.0 >60 Dec 14, 2021 06:27 AM [facility] CBC PROFILE Sp ecimen Type: BLOOD No comment enter ed. Ordering Provid er: ISATU TODD Report Released Date/Time: Dec 10, 2021 07:22 AM Reporting Lab: [facility] [address] [facility] [address] Performing Lab: [facility] [address] [facility] [address] WBC 6.0 4.5-11.0 RBC 4.29 4.23-5.66 HGB [...] 0.00 0-0 Dec 13, 2021 06:34 AM [facility] CBC PROFILE Sp ecimen Type: BLOOD No comment enter ed. Ordering Provid er: ISATU TODD Report Released Date/Time: Dec 10, 2021 07:22 AM Reporting Lab: [facility] [address] [facility] [address] Performing Lab: [facility] [address] [facility] [address] WBC 5.6 4.5-11.0 RBC 4.28 4.23-5.66 HGB [...] ABSOLUTE NRBC 0.00 0-0 Dec 13, 2021 [facility] P4 GLU,BUN,CREAT,LYTES,CA Speci men Type: PLASMA 06:34 AM [facility] Comment: Tests performed on Metropolist (405) SN:[id number] Ordering Provid er: ISATU TODD Report Released Date/Time: Dec 11, 2021 07:42 AM Reporting Lab: [facility] [address] [facility] [address] Performing Lab: [facility] [address] [facility] [address] UREA NITROGEN 12 7-25 SODIUM 136 135-145 POTASSIUM 3.9 3.5-5.0 CHLORIDE 105 100-110 CARBON DIOXIDE 24 20-30 ANION GAP 7 4-16 GLUCOSE 102 H 65-100 CREATININE 0.66 0.5-1.5 CALCIUM 8.3 L 8.5-10.5 eGFR(CKD-EPI 2020) >90.0 >60 Dec 12, 2021 [facility] P4 GLU,BUN,CREAT,LYTES,CA Speci men Type: PLASMA 06:21 AM [facility] Comment: Tests performed on Metropolist (405) SN:[id number] Ordering Provid er: ISATU TODD Report Released Date/Time: Dec 11, 2021 07:42 AM Reporting Lab: [facility] [address] [facility] [address] Performing Lab: [facility] [address] [facility] [address] UREA NITROGEN 11 7-25 SODIUM 139 135-145 POTASSIUM 4.1 3.5-5.0 CHLORIDE 107 100-110 CARBON DIOXIDE 24 20-30 ANION GAP 8 4-16 GLUCOSE 110 H 65-100 CREATININE 0.70 0.5-1.5 CALCIUM 8.3 L 8.5-10.5 eGFR(CKD-EPI 2020) >90.0 >60 Dec 12, 2021 06:21 AM [facility] CBC PROFILE Sp ecimen Type: BLOOD No comment enter ed. Ordering Provid er: ISATU TODD Report Released Date/Time: Dec 10, 2021 07:22 AM Reporting Lab: [facility] [address] [facility] [address] Performing Lab: [facility] [address] [facility] [address] WBC 5.5 4.5-11.0 RBC 4.37 4.23-5.66 HGB [...] 0.00 0-0 Dec 12, 2021 06:00 AM The [employer] Group[employer] [facility] MAGNESIUM Sp ecimen Type: PLASMA Comment: Testin g Performed on Metropolist (405) SN:[id number] Ordering Provid er: ISATU TODD Report Released Date/Time: Dec 12, 2021 08:24 AM Reporting Lab: [place] [employer] [facility] [address] [facility] [address] Performing Lab: [employer] [place] [employer] [address] [facility] [address] MAGNESIUM 1.8 1.6-2.6 Dec 12, 2021 06:00 AM [employer] PHOSPHORUS Sp ecimen Type: PLASMA Comment: Testin g Performed on Metropolist (405) SN:[id number] Ordering Provid er: ISATU TODD Report Released Date/Time: Dec 12, 2021 08:24 AM Reporting Lab: [place] [employer] [facility] [address] [facility] [address] Performing Lab: [place] [employer] [address] [facility] [address] PHOSPHORUS 3.1 2.5-5.0 Dec 11, 2021 06:15 AM [employer] [place] [employer] ELECTROLYTES Sp ecimen Type: PLASMA Comment: Tests performed on Metropolist (405) SN:[id number] Ordering Provid er: ISATU TODD Report Released Date/Time: Dec 10, 2021 07:22 AM Reporting Lab: [place] [employer] [facility] [address] [facility] [address] Performing Lab: [place] [employer] [facility] [address] [facility] [address] SODIUM 137 135-145 POTASSIUM 4.3 3.5-5.0 CHLORIDE 108 100-110 CARBON DIOXIDE 20 20-30 ANION GAP 9 4-16 Dec 11, 2021 06:15 AM [facility] [employer] [facility] CBC PROFILE Sp ecimen Type: BLOOD Comment: Result s checked Ordering Provid er: ISATU TODD Report Released Date/Time: Dec 10, 2021 07:22 AM Reporting Lab: [place] [employer] [facility] [address] [facility] [address] Performing Lab: [place] [employer] [facility] [address] [facility] [address] WBC 5.8 4.5-11.0 RBC 4.37 4.23-5.66 HGB [...] ecimen Type: PLASMA Comment: Tests performed on Metropolist (864) SN:[id number] Results checked Ordering Provid er: ISATU TODD Report Released Date/Time: Dec 11, 2021 07:44 AM Reporting Lab: [facility] [address] [facility] [address] Performing Lab: [place] [employer] [facility] [address] [facility] [address] PHOSPHORUS 3.0 2.5-5.0 Dec 10, 2021 08:05 AM [place] [facility] PHOSPHORUS Sp ecimen Type: PLASMA Comment: [place] [id number] on Dec 10, 2021@08:31 Tests performed on Metropolist (405) SN:[id number] Ordering Provid er: ISATU TODD Report Released Date/Time: Dec 10, 2021 07:22 AM Reporting Lab: [place] [facility] [address] [facility] [address] Performing Lab: [place] [facility] [address] [place] [facility] [place] [address] PHOSPHORUS 1.8 L 2.5-5.0 Dec 10, 2021 08:05 AM [place] UREA NITROGEN Specimen Type: PLASMA [facility] Comment: [place] [id number] on Dec 10, 2021@08:31 Tests performed on Metropolist (405) SN:[id number] Ordering Provid er: ISATU TODD Report Released Date/Time: Dec 10, 2021 07:22 AM Reporting Lab: [place] [facility] [address] [place] [facility] [place] [address] Performing Lab: [place] [facility] [address] [place] [facility] [place] [address] UREA NITROGEN 8 7-25 Dec 10, 2021 08:05 AM [place] [facility] MAGNESIUM Sp ecimen Type: PLASMA Comment: Added by Ligia on Dec 10, 2021@08:31 Tests performed on Metropolist (405) SN:[id number] Ordering Provid er: ISATU TODD Report Released Date/Time: Dec 10, 2021 07:22 AM Reporting Lab: [place] [facility] [address] [place] [facility] [place] [address] Performing Lab: [place] [facility] [address] [place] [facility] [place] [address] MAGNESIUM 1.7 1.6-2.6 Dec 10, 2021 08:05 AM [place] [facility] GLUCOSE Sp ecimen Type: PLASMA Comment: [place] [id number] on Dec 10, 2021@08:31 Tests performed on Metropolist (405) SN:[id number] Ordering Provid er: ISATU TODD Report Released Date/Time: Dec 10, 2021 07:22 AM Reporting Lab: [place] [facility] [address] [facility] [address] Performing Lab: [place] [facility] [address] [facility] [address] GLUCOSE 144 H 65-100 Dec 10, 2021 08:05 AM [place] [facility] ELECTROLYTES Sp ecimen Type: PLASMA Comment: [place] [id number] on Dec 10, 2021@08:31 Tests performed on Pham Livevol (405) SN:[id number] Ordering Provid er: ISATU TODD Report Released Date/Time: Dec 10, 2021 07:22 AM Reporting Lab: [place] [facility] [address] [facility] [address] Performing Lab: [place] [facility] [address] [facility] [address] SODIUM 139 135-145 POTASSIUM 3.7 3.5-5.0 CHLORIDE 107 100-110 CARBON DIOXIDE 24 20-30 ANION GAP 8 4-16 Dec 10, 2021 08:05 AM [place] [facility] CALCIUM Sp ecimen Type: PLASMA Comment: [place] [id number] on Dec 10, 2021@08:31 Tests performed on Pham Livevol (405) SN:[id number] Ordering Provid er: ISATU TODD Report Released Date/Time: Dec 10, 2021 07:22 AM Reporting Lab: [place] [facility] [address] [facility] [address] Performing Lab: [place] [facility] [address] [facility] [address] CALCIUM 8.3 L 8.5-10.5 Dec 10, 2021 08:05 [place] CREATININE WITH eGFR Specime n Type: PLASMA AM [facility] PANEL Comment: [place] [id number] on Dec 10, 2021@08:31 Tests performed on Metropolist (405) SN:[id number] Ordering Provid er: ISATU TODD Report Released Date/Time: Dec 10, 2021 07:22 AM Reporting Lab: [place] [facility] [address] [facility] [address] Performing Lab: [place] [facility] [address] [facility] [address] CREATININE 0.78 0.5-1.5 eGFR(CKD-EPI 2020) >90.0 >60 Dec 10, 2021 08:05 AM [facility] CBC PROFILE Sp ecimen Type: BLOOD No comment enter ed. Ordering Provid er: ISATU TODD Report Released Date/Time: Dec 10, 2021 07:22 AM Reporting Lab: [place] [facility] [address] [facility] [address] Performing Lab: [place] [employer] [facility] [address] [facility] [address] WBC 7.0 4.5-11.0 RBC 4.54 4.23-5.66 HGB [...] ecimen Type: PLASMA Comment: Tests performed on Metropolist (362) SN:[id number] Ordering Provid er: ISATU TODD Report Released Date/Time: Dec 08, 2021 10:23 AM Reporting Lab: [facility] [address] [facility] [address] Performing Lab: [facility] [address] [facility] [address] MAGNESIUM 1.6 1.6-2.6 Dec 09, 2021 [facility] P4 GLU,BUN,CREAT,LYTES,CA Speci men Type: PLASMA 06:46 AM [facility] Comment: Tests performed on Metropolist (405) SN:[id number] Ordering Provid er: ISATU TODD Report Released Date/Time: Dec 08, 2021 05:00 PM Reporting Lab: [facility] [address] [facility] [address] Performing Lab: [facility] [address] [facility] [address] UREA NITROGEN 6 L 7-25 SODIUM 134 L 135-145 POTASSIUM 3.7 3.5-5.0 CHLORIDE 103 100-110 CARBON DIOXIDE 23 20-30 ANION GAP 8 4-16 GLUCOSE 112 H 65-100 CREATININE 0.70 0.5-1.5 CALCIUM 8.1 L 8.5-10.5 eGFR(CKD-EPI 2020) >90.0 >60 Dec 09, 2021 06:46 AM [facility] CBC PROFILE Sp ecimen Type: BLOOD No comment enter ed. Ordering Provid er: ISATU TODD Report Released Date/Time: Dec 08, 2021 05:00 PM Reporting Lab: [facility] [address] [facility] [address] Performing Lab: [facility] [address] [facility] [address] WBC 7.1 4.5-11.0 RBC 4.40 4.23-5.66 HGB [...] 0.00 0-0 Dec 08, 2021 06:39 AM [place] [employer] T [facility] MAGNESIUM Sp ecimen Type: PLASMA Comment: Testin g Performed on Metropolist (405) SN:[id number] Ordering Provid er: ISATU TODD Report Released Date/Time: Dec 07, 2021 10:32 AM Reporting Lab: [facility] [address] [facility] [address] Performing Lab: [facility] [address] [facility] [address] MAGNESIUM 1.5 L 1.6-2.6 Dec 08, 2021 [place] [employer] T P4 GLU,BUN,CREAT,LYTES,CA Speci men Type: PLASMA 06:39 AM [facility] Comment: Testin g Performed on Metropolist (405) SN:[id number] Ordering Provid er: ISATU TODD Report Released Date/Time: Dec 07, 2021 10:32 AM Reporting Lab: [employer] T [facility] [address] [facility] [address] Performing Lab: [facility] [address] [facility] [address] UREA NITROGEN 6 L 7-25 SODIUM 136 135-145 POTASSIUM 3.3 L 3.5-5.0 CHLORIDE 104 100-110 CARBON DIOXIDE 22 20-30 ANION GAP 10 4-16 GLUCOSE 133 H 65-100 CREATININE 0.76 0.5-1.5 CALCIUM 8.4 L 8.5-10.5 eGFR(CKD-EPI 2020) >90.0 >60 Dec 08, 2021 06:39 AM [place] [employer] T [facility] CBC PROFILE Sp ecimen Type: BLOOD No comment enter ed. Ordering Provid er: ISATU TODD Report Released Date/Time: Dec 07, 2021 10:32 AM Reporting Lab: [facility] [address] [facility] [address] Performing Lab: [facility] [address] [facility] [address] WBC 8.4 4.5-11.0 RBC 4.75 4.23-5.66 HGB [...] ABSOLUTE NRBC 0.00 0-0 Dec 07, 2021 [facility] P4 GLU,BUN,CREAT,LYTES,CA Speci men Type: PLASMA 06:42 AM [facility] Comment: Tests performed on Metropolist (405 SN:[id number] Ordering Provid er: PORFIRIO WALTERS Report Released Date/Time: Dec 06, 2021 06:57 PM Reporting Lab: [facility] [address] [facility] [address] Performing Lab: [facility] [address] [facility] [address] UREA NITROGEN 9 7-25 SODIUM 135 135-145 POTASSIUM 3.5 3.5-5.0 CHLORIDE 103 100-110 CARBON DIOXIDE 22 20-30 ANION GAP 10 4-16 GLUCOSE 92 65-100 CREATININE 0.73 0.5-1.5 CALCIUM 8.0 L 8.5-10.5 eGFR(CKD-EPI 2020) >90.0 >60 Dec 07, 2021 06:42 [place] LIVER PROFILE Specimen Typ e: PLASMA AM VAOC Comment: Tests performed on [employer] Wallpaper Hanger (405) SN:[id number] Ordering Provid er: PORFIRIO WALTERS Report Released Date/Time: Dec 06, 2021 06:57 PM Reporting Lab: [facility] [address] [facility] [address] Performing Lab: [facility] [address] [facility] [address] PROTEIN, TOTAL 5.7 L 6.0-8.5 ALBUMIN 2.4 L 3.2-5.0 BILIRUBIN, TOTAL 0.4 0.2-1.2 ALKALINE PHOSPHATASE 109 40-150 ALT(SGPT) 10 7-52 AST(SGOT) 15 5-34 FIB-4 SCORE 1.92 <2.67 Dec 07, 2021 06:42 AM [facility] CBC PROFILE Specimen Type: BLOOD [facility] No comment enter ed. Ordering Provid er: PORFIRIO WALTERS Report Released Date/Time: Dec 06, 2021 06:57 PM Reporting Lab: [facility] [address] [facility] [address] Performing Lab: [facility] [address] [facility] [address] WBC 5.7 4.5-11.0 RBC 4.15 L 4.23-5.66 [...] VAMROC %) AUTOMATED Comment: Tests performed on Metropolist (405) SN:[id number] Ordering Provid er: ISATU TODD Report Released Date/Time: Dec 07, 2021 10:28 AM Reporting Lab: [place] [facility] [address] [facility] [address] Performing Lab: [place] [facility] [address] [facility] [address] RETICULOCYTES (%) AUTOMATED 1.23 0. 6-2.0 RETICULOCYTES (ABS) AUTOMATED 0.052 0.030-0.090 Dec 06, 2021 09:45 [place] MRSA SURVL NARES Specimen Ty pe: NARES PM [facility] DNA No comment enter ed. Ordering Provid er: ALVARO VARGHESE Report Released Date/Time: Dec 07, 2021 02:20 AM Reporting Lab: [place] [facility] [address] [facility] [address] Performing Lab: [place] [facility] [address] [facility] [address] MRSA SURVL NARES DNA NEGATIVE NEGATIVE Dec 06, 2021 06:00 [place] URINALYSIS W/REFLEX TO Speci men Type: URINE PM [facility] CULTURE No comment enter ed. Ordering Provid er: JELANI SÁNCHEZ Report Released Date/Time: Dec 06, 2021 11:57 AM Reporting Lab: [place] [facility] [address] [facility] [address] Performing Lab: [place] [facility] [address] [facility] [address] URINE COLOR Arlin YELLOW SPECIFIC GRAVITY 1.029 [...] 21, RIVER VARIANT Comment: https://www.cdc.gov/coronavirus/2019-ncov/cases-updates/variant- surveillance/variant-info.html The [employer] SARS CoV 2 [employer] Assay-GX is a next-generation sequencing (NGS) assa 2021 [facility] SEQUENCING y that determine s the complete genome sequence of the SARS-CoV-2 virus. The assay contains variant-tolerant primers to broaden and improve the coverage for variant detection and increase the sensitivity 12:00 [facility] PNL(WH) of the panel to enable detection from lower viral titer samples. The assay is run on the [employer] Sequencer, which performs automated library preparation, sequencing, analysis, and reporting. PM The sequence an alysis includes determination of viral phylogenetic lineage by comparison to the reference strain Wuhan-Hu-1, GenBank: [id number]. Sequence determination may not be possible owing [...] [facility] [address] [facility] [address] Performing Lab: [facility] [address] [facility] [address] SARS-CoV-2 CLADE() 22C (OMICRON) SARS-CoV-2 LINEAGE() BA.2.12.1 Dec 06, 2021 12:00 [facility] COVID-19 AG SCREEN Specimen Type: NASAL CAVITY PM [facility] PANEL BINAX(405) Comment: Testi ng Performed By: Mike Briscoe Ordering Provid er: JELANI SÁNCHEZ Report Released Date/Time: Dec 08, 2021 08:23 AM Reporting Lab: [facility] [address] [facility] [address] Performing Lab: [facility] [address] [facility] [address] COVID-19 AG SCRN(wrj BINAX) POSITIVE HH NE G Dec 06, 2021 12:00 PM [facility] LIVER PROFILE Sp ecimen Type: PLASMA Comment: Testin g Performed on Pham Wallpaper Hanger (405) SN:[id number] Ordering Provid er: JELANI SÁNCHEZ Report Released Date/Time: Dec 06, 2021 11:57 AM Reporting Lab: [facility] [address] [facility] [address] Performing Lab: [facility] [address] [facility] [address] PROTEIN, TOTAL 6.6 6.0-8.5 ALBUMIN 2.8 L 3.2-5.0 BILIRUBIN, TOTAL 0.6 0.2-1.2 ALKALINE PHOSPHATASE 134 40-150 ALT(SGPT) 13 7-52 AST(SGOT) 18 5-34 FIB-4 SCORE 1.94 <2.67 Dec 06, 2021 [facility] GLU,BUN,CREAT,LYTES,CA Speci men Type: PLASMA 12:00 PM [facility] Comment: Testin g Performed on Pham Wallpaper Hanger (405) SN:[id number] Ordering Provid er: JELANI SÁNCHEZ Report Released Date/Time: Dec 06, 2021 11:57 AM Reporting Lab: [place] [facility] [address] [facility] [address] Performing Lab: [facility] [place] [facility] [address] [facility] [address] UREA NITROGEN 13 7-25 SODIUM 138 135-145 POTASSIUM 3.8 3.5-5.0 CHLORIDE 103 100-110 CARBON DIOXIDE 23 20-30 ANION GAP 12 4-16 GLUCOSE 105 H 65-100 CREATININE 0.90 0.5-1.5 CALCIUM 8.7 8.5-10.5 eGFR(CKD-EPI 2020) >90.0 >60 Dec 06, 2021 12:00 PM [facility] TROPONIN II Sp ecimen Type: PLASMA Comment: Tests performed on Pham Wallpaper Hanger (405) SN:[id number] Ordering Provid er: JELANI SÁNCHEZ Report Released Date/Time: Dec 06, 2021 11:57 AM Reporting Lab: [facility] [place] [facility] [address] [facility] [address] Performing Lab: [facility] [address] [facility] [address] TROPONIN II 0.03 0.00-0.29 Dec 06, 2021 12:00 PM [facility] BNP(P) Sp ecimen Type: PLASMA Comment: Tests performed on Pham Wallpaper Hanger (405) SN:[id number] Ordering Provid er: JELANI SÁNCHEZ Report Released Date/Time: Dec 06, 2021 11:57 AM Reporting Lab: [facility] [place] [facility] [address] [facility] [address] Performing Lab: [facility] [address] [facility] [address] BNP(P) 224.8 H 10-100 Dec 06, 2021 [facility] [place] COVID-19+FLU/RSV DIAGNOSTIC Spe cimen Type: NASOPHARYNX 12:00 PM [facility] PANEL(405) Comment: Tests performed on [employer] Genexpert (405) Critical results called to and read back by: ALESHIA WILKINSON RN 12/06/21 @ 1312 Ordering Provid er: JELANI SÁNCHEZ Report Released Date/Time: Dec 06, 2021 11:57 AM Reporting Lab: [facility] [place] [facility] [address] [facility] [address] Performing Lab: [place] [facility] [address] [facility] [address] FLU A(PCR) NEGATIVE NEGATIVE FLU B(PCR) NEGATIVE NEGATIVE RSV(PCR) NEGATIVE NEGATIVE COVID-19(PWP-zid-FURLUEBYO) DETECTED HH NO T DETECTED Dec 06, 2021 12:00 PM [facility] ecimen Type: BLOOD No comment enter ed. Ordering Provid er: JELANI SÁNCHEZ Report Released Date/Time: Dec 06, 2021 11:57 AM Reporting Lab: [facility] [address] [facility] [address] Performing Lab: [facility] [address] [facility] [address] WBC 7.2 4.5-11.0 RBC 4.86 4.23-5.66 HGB [...] 94 122/75 18 /min 97 % 0 WINIFRED 2021 09:00 /min mm[Hg] [facility]IVER PM [facility] Dec 10, 0 WHITE 2021 08:57 RIVER PM [facility] Dec 10, 0 WHITE 2021 04:17 RIVER PM [facility] Dec 10, 97.8 F 93 125/74 20 /min 95 % 0 WINIFRED 2021 01:40 /min mm[Hg] RIVER PM [facility] Dec 10, 231.9 32 WINIFRED 2021 10:22 lb RIVER AM [facility] Social [...] took place. Date/Time Smoking Status/Tobacco Use Comment [facility] Apr 01, 2020 01:16 PM QUIT TOBACCO [...] [facility] May 01, 2016 03:11 PM QUIT [...] data comes from all [place] treatment facilities. Date/Time Radiology Report Provider Source Dec 13, 2021 12:57 PM MRI ABDOMEN W/WO CONTRAST: MARYELLEN LONG LUCAS LARES N [id number] -1950 [facility] Exm Date: DEC 13, 2021@12:57 Req Phys: ISATU TODD Loc: OP Unknown/0 12-15-2021@13:20 Img Loc: MRI IMAGING (OOS) Service: [facility] MEDICINE (Case [id number] COMPLETE) MRI ABDOMEN W/WO CONTRAST (M RI Detailed) CPT:61825 Reason for Study: further characterization of a [...] new lyphadenopathy REQUESTING MD: Isatu Todd PAGER: [phone] PHONE: [phone] Weight: 232.2 lb [105.32 kg] (12/12/2021 05:00) [...] patient will need to arrange for a school bus driver/mechanic to take him/her home after the MRI [...] 15, 2021 Date Verified: DEC 15, 2021 Fashion Supervisor E-Sig:/ES/MARYELLEN LONG Report: MRI ABDOMEN W/WO [...] MALIGNANCY Primary Interpreting Staff: Staff AMELIA THOMAS (Fashion Supervisor) / Dec 10, 2021 09:[address] ABDOMEN & PELVIS: RADIOLOGY,OUTSIDE [facility] LUCAS MEEK N [id number] -1950 M SERVICE [facility] Exm Date: DEC 10, 2021@09:30 Req Phys: ISATU TODD Loc: MED/12-10@10:57 Img Loc: CT SCAN (OOS) Service: [facility] MEDICINE (Case [id number] COMPLETE) CT ABD & PELVIS WITHOUT CONT RAST (CT Detailed) CPT:80456 Reason for Study: 71 yo male with [...] RADIOLOGY [phone] to speak to the appropriate data collection technician. Report Status: Verified Date Reported: DEC 10, 2021 Date Verified: DEC 10, 2021 Fashion Supervisor E-Sig: Report: EXAM: CT abdomen and [...] ph nodes. READING PHYSICIAN: Ramone Munoz D.O. [phone] 12/10/2021 10:55 EDT [facility] National Teleradiology Program [phone] (For Medical Practitioner Use Only ) [address] [facility], [facility] [address], [address] [place] [address] Attention Patients / Veterans: If you have ques tions or concerns about these test results, please [facility] or primary care team. Primary Diagnostic Code: SIGNIFICANT ABNORMALIT Y, ATTN NEEDED Primary Interpreting Staff: RADIOLOGY,OUTSIDE SERVICE, Staff Physician / Dec 09, 2021 07:34 AM BASW (MODIFIED): JESSIE CHENEY [facility] LUCAS MEEK N [id number] -1950 M [facility] Exm Date: DEC 09, 2021@07:34 Req Phys: ISATU TODD Loc: 1S MED/12-09@11:26 Img Loc: XRAY (OOS) Service: [facility] MEDICINE (Case [id number] COMPLETE) BASW (MODIFIED) (RAD Detaile d) CPT:67745 Contrast Media : Barium Reason for Study: dysphagia ?esophageal spasm Clinical History: Report Status: Verified Date Reported: DEC 09, 2021 Date Verified: DEC 09, 2021 Fashion Supervisor E-Sig:/ES/JESSIE CHENEY Report: BASW (MODIFIED) , [...] REQUIRED Primary Interpreting Staff: JESSIE CHENEY, RADIOLOGIST (Fashion Supervisor) /TLC Dec 06, 2021 12:[address] CHEST (INCLUDES ADRENALS): JESSIE CHENEY [facility] LUCAS MEEK N [id number] -1950 M [facility] Exm Date: DEC 06, 2021@12:59 Req Phys: GONZALOJELANI Loc: [facility] ED DAYS M 1RD (Req'g Loc) Img Loc: CT SCAN (OOS) Service: Unknown (Case [id number] COMPLETE) CT THORAX W/O CONT (CT Detai led) CPT:48760 Reason for Study: Opacification right chest Clinical History: No contrast allergy BUN: 13 (12/06/21 12:00) CREATI: 0.90 (12/06/21 12:00) eGFR 05/16/21 09:43 52 L Weight: 232.6 lb [105.51 kg] (12/06/2021 11:40) BODY MASS INDEX - NO HEIGHTS FOUND Pager number: [phone] STAT orders MUST be called t o RADIOLOGY [phone] to speak to the appropriate data collection technician. Indications - Other: Opacification right chest, covid positive, lung cancer histo Report Status: Verified Date Reported: DEC 06, 2021 Date Verified: DEC 06, 2021 Fashion Supervisor E-Sig:/ES/JESSIE CHENEY Report: CT THORAX W/O [...] REQUIRED Primary Interpreting Staff: JESSIE CHENEY, RADIOLOGIST (Fashion Supervisor) Primary Interpreting Resident: PRINCE CHAMPION, Resident /BR Dec 06, 2021 11:58 AM CHEST SINGLE VIEW: JESSIE CHENEY DOUGLAS N [id number] -1950 M [facility] Exm Date: DEC 06, 2021@11:58 Req Phys: JELANI SÁNCHEZ Pat Loc: [facility] ED DAYS M 1RD (Req'g Loc) Img Loc: XRAY (OOS) Service: Unknown (Case [id number] COMPLETE) CHEST SINGLE VIEW (RAD Detai led) CPT:89678 Proc Modifiers : PORTABLE EXAM Reason for Study: SOB, home covid test positive Clinical History: Report Status: Verified Date Reported: DEC 06, 2021 Date Verified: DEC 06, 2021 Fashion Supervisor E-Sig:/ES/JESSIE CHENEY Report: Exam type: Chest [...] REQUIRED Primary Interpreting Staff: JESSIE CHENEY, RADIOLOGIST (Fashion Supervisor) /TLC Pathology Reports: +/- 30 days [...] data comes from all [place] treatment facilities. Date/Time Pathology Report Provider Source Jan 03, 2022 10:28 AM LR SURGICAL PATHOLOGY REPORT: STEFANY MILLER LOCAL TITLE: LR SURGICAL PATHOLOGY REPORT [facility] STANDARD TITLE: PATHOLOGY REPORT DATE OF NOTE: JAN 03, 2022@10:28:01 ENTRY DATE: JAN 03, 2022@10:28:01 AUTHOR: NIURKA MILLER EXP COSIGNER: URGENCY: STATUS: COMPLETED $APHDR Reporting Lab: [facility]TO[facility] [CLIA# [id number]] [address] [place] [address] - - - - - - [...] automatically d ocumented from SURGERY package case #[id number] Field (#32) PRINCIPAL PRE-OP DIAGNOSIS, (#.72) OTHER [...] automatically d ocumented from SURGERY package case #[id number] Field (#34) PRINCIPAL POST-OP DIAG, (#.74) OTHER [...] Label: Lucas Meek Paperwork: Lucas Meek Cassette: [id number];..;KALYANI;.;405;[id number] Specimen is labeled: ES bx Received in formalin are several pieces of pale boyd and brown tissue, 1.2 x 0.7 cm in aggregate. Submitted entirely in 1 cassette [id number];..;KALYANI;.;405;[id number] SAW 12/15/2021 Microscopic exam: *+* MODIFIED REPORT *+* (Last modified: JAN 03, 2022@09:30:20 typed by NIURKA WADDELL) DIAGNOSIS: A. 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 Kendell long. TIARA Coombs was notified on 12/21/21. Modified on 01/03/22 to include report from [facility] stating that tumor is NEGATIVE for her2/ matheus amplification. The attending pathologist who signature mansoor ears on this report has reviewed all diagnostic slides and has edited t he gross and/or microscopic portion of this report in rendering the final pathologic diagnosis. [address] [address] CPT: 85946 /emely/ NIURKA Yeung MD Signed Jan 03, 2022@10:28 Performing Laboratory: Surgical Pathology Report Performed By: [facility] [CLIA# [id number]] [address] [place] [address] $FTR - - - - - [...] - - LUCAS MEEK STANDARD FORM 515 ID:[id number] SEX:M :1950 AGE: 71 LOC: SDM END PCP: Isatu Todd /emely/ NIURKA MILLER Staff Signed: 01/03/2022 10:28 Dec 21, 2021 11:46 AM LR SURGICAL PATHOLOGY REPORT: STEFANY MILLER [facility] LOCAL TITLE: LR SURGICAL PATHOLOGY REPORT [facility] STANDARD TITLE: PATHOLOGY REPORT DATE OF NOTE: DEC 21, 2021@11:46:59 ENTRY DATE: DEC 21, 2021@11:46:59 AUTHOR: NIURKA MILLER EXP COSIGNER: URGENCY: STATUS: COMPLETED $APHDR Reporting Lab: [facility] [CLIA# [id number]] [address] [place] [address] - - - - - - [...] automatically d ocumented from SURGERY package case #[id number] Field (#32) PRINCIPAL PRE-OP DIAGNOSIS, (#.72) OTHER [...] automatically d ocumented from SURGERY package case #[id number] Field (#34) PRINCIPAL POST-OP DIAG, (#.74) OTHER [...] Label: Lucas Meek Paperwork: Lucas Meek Cassette: [id number];..;KALYANI;.;636;[phone] Specimen is labeled: ES bx Received in formalin are several pieces of pale boyd and brown tissue, 1.2 x 0.7 cm in aggregate. Submitted entirely in 1 cassette [id number];..;KALYANI;.;405;[id number] SAW 12/15/2021 Microscopic exam: DIAGNOSIS: A. 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 Kendell long. TIARA Coombs was notified on 12/21/21. The attending pathologist who signature mansoor ears on this report has reviewed all diagnostic slides and has edited t he gross and/or microscopic portion of this report in rendering the final pathologic diagnosis. [address] [address] CPT: 23919 /emely/ NIURKA Yeung MD Signed Dec 21, 2021@11:46 Performing Laboratory: Surgical Pathology Report Performed By: [facility] [CLIA# [id number]] [address] [place] [address] $FTR - - - - - [...] - - LUCAS MEEK STANDARD FORM 515 ID:[id number] SEX:M :1950 AGE: 71 LOC: [facility] END PCP: Isatu Todd /charmaine Yeung MD Signed: 12/21/2021 11:46 Dec 06, 2021 03:30 PM LR MICROBIOLOGY REPORT: [facility] Reporting Lab: [facility] [CLIA# [id number]] [address] [place] [address] Accession [UID]: [id number] [[id number]] Receiv ed: Dec 06, 2021@16:14 Collection sample: BLOOD CUL T BOTTLE(NIRMAL/AERO)Collection date: Dec 06, 2021 15:30 Site/Specimen: BLOOD Provider: JELANI SÁNCHEZ Comment on specimen: LAC Test(s) ordered: BLOOD CULTURE ANAEROBI C....... completed: Dec 12, 2021 06:18 * BACTERIOLOGY FINAL REPORT => Dec 12, 2021 06:1 8 TECH CODE: 66040 Bacteriology Remark(s): NO GROWTH IN 5 DAYS =--=--=--=--=--=--=--=--=--=--=--=--=--= --=--=--=--=--=--=--=--=--=--=--=--=-- Performing Laboratory: Bacteriology Report Performed By: [facility] [CLIA# [id number]] [address] [place] [address] Dec 06, 2021 03:30 PM LR MICROBIOLOGY REPORT: [facility] Reporting Lab: [facility] [CLIA# [id number]] [address] [place] [address] Accession [UID]: [id number] [[id number]] Receiv ed: Dec 06, 2021@16:14 Collection sample: BLOOD CUL T BOTTLE(NIRMAL/AERO)Collection date: Dec 06, 2021 15:30 Site/Specimen: BLOOD Provider: JELANI SÁNCHEZ Comment on specimen: LAC Test(s) ordered: BLOOD CULTURE AEROBIC. ........ completed: Dec 12, 2021 06:17 * BACTERIOLOGY FINAL REPORT => Dec 12, 2021 06:1 7 TECH CODE: [id number] Bacteriology Remark(s): NO GROWTH IN 5 DAYS =--=--=--=--=--=--=--=--=--=--=--=--=--= --=--=--=--=--=--=--=--=--=--=--=--=-- Performing Laboratory: Bacteriology Report Performed By: [facility] [CLIA# [id number]] [address] [place] [address]
--- OUTSIDE RECORDS SUMMARY | 2022-01-19 09:08 | XMS_ITS ---
DAILY HOSPITALIZATION DATA [facility] Encounter Summary Created on:December 11, 2021 Patient:LUCAS MEEK Sex:Male :1950 Author Organization [facility] Address [address] [place] [id number] Support Name Relationship Address Phone YUSRA MEEK Unavailable [address] [place] [address] YUSRA MEEK Unavailable [address] [place] [address] CLAY MOSLEY Unavailable Unavailable SJ SANTACRUZ Unavailable [...] MEDICARE MEDICARE PART Jun 18, PART A [id number] DO KLAYANI PATIENT (WNR) (M) A 2016 13A 1 UGLAS MEDICARE MEDICARE PART Jun 18, PART B [id number] DO KALYANI PATIENT (WNR) (M) B 2016 13A 1 [place]AS MEDICARE MEDICARE PART Jun 18, PART A [id number] KALYANIDO PATIENT (WNR) (M) A 2017 VH81 2 [place]AS MEDICARE MEDICARE PART Jun 18, PART B [id number] DO KALYANI PATIENT (WNR) (M) B 2017 VH81 2 [place]AS UNITED MEDICARE MCR(Jun 18 [id number] Luz MEEK PATIENT HEALTHCARE ADVANTAGE NR) 2021 37 0 [facility] (WNR) Selected Encounter This section includes the information on record at [place] for the Encounter. Date/Time Encounter Type Encounter Description Reason Provider Source Dec 11, 2021 04:56 Inpatient Visit DAILY HOSPITALIZATION DATA AM [facility] Encounter Template Text not used [...] MEDIC[place] [facility] Jan 10, 2022 11:30 AM AMBULATORY - MEDICINE [facility] Jan 24, 2022 08:00 AM [place] [facility] Feb 21, 2022 10:00 AM [place] [facility] Mar 21, [...] The data comes from all [place] treatment [facility]. Test Date/Time Test Type Test Details Facility Name October 31, 2021 07:37 AM Consult Order [facility] November 15, 2021 10:37 AM Consult Order [facility] CARE-PODIATRY Cons [facility] Dec 06, 2021 12:52 PM Pharmacy [place] Infusion Order [facility] Dec 06, 2021 03:24 PM Pharmacy [place] [facility] Dec 06, 2021 03:40 PM [place]acy [place] [facility] Dec 15, 2021 08:41 AM Consult Order SPEECH PATHOLOGY [place] OUTPATIENT Cons [facility] Jan 15, 2022 10:08 PM Consult Order [facility] CARE-PALLIATIVE CARE Cons [facility] Lab Results: +/- 30 days of the encounter This section includes the Chemistry and Hematology Lab Results on record with [place] for the patient. Radiology Reports and Pathology [...] AM Reporting Lab: [facility] [address] [address] Performing Lab: [facility] [address] [address] WBC 5.7 4.5-11.0 RBC 4.22 L 4.23-5.66 [...] ABSOLUTE NRBC 0.00 0-0 Dec 15, 2021 [facility] P4 GLU,BUN,CREAT,LYTES,CA Speci men Type: PLASMA 06:43 AM [facility] Comment: Tests performed on Pham Social Service Agency Director (405) SN:[id number] Ordering Provid er: ISATU TODD Report Released Date/Time: Dec 11, 2021 07:42 AM Reporting [facility] [address] [address] [facility]forming Lab[facility] [address] [address] UREA NITROGEN 9 7-25 SODIUM 137 135-145 POTASSIUM 3.8 3.5-5.0 CHLORIDE 105 100-110 CARBON DIOXIDE 26 20-30 ANION GAP 6 4-16 GLUCOSE 102 H 65-100 CREATININE 0.64 0.5-1.5 CALCIUM 8.1 L 8.5-10.5 eGFR(CKD-EPI 2020) >90.0 >60 Dec 14, 2021 [facility] CYTOGENETIC Specimen Type: ESOPHAGUS 02:59 PM [facility] FISH[place] Comment: ~For T est: CYTOGENETIC FISH([facility] ~FISH HER 2 NUE, FFPE See full report in GigsJam Image display viewer/tab#LAB-Reference Ordering Provid er: NIURKA MILLER Report Released Date/Time: Dec 21, 2021 12:11 PM Reporting [facility] [address] [address] Performing Lab: [facility] CYTOGENETIC FISH([facility] comment Dec 14, 2021 [place] P4 GLU,BUN,CREAT,LYTES,CA Speci men Type: PLASMA 06:27 AM [facility] Comment: Tests performed on Pham Social Service Agency Director (405) SN:[id number] Ordering Provid er: ISATU TODD Report Released Date/Time: Dec 11, 2021 07:42 AM Reporting [facility] [address] [address] [facility] Lab: [facility] [address] [facility] [address] UREA NITROGEN 10 7-25 SODIUM 137 135-145 [...] AM Reporting Lab: [facility] [address] [address] Performing Lab: [facility] [address] [address] WBC 6.0 4.5-11.0 RBC 4.29 4.23-5.66 HGB [...] men Type: PLASMA 06:34 AM [facility] Comment: Tests performed on IncellDx (405) SN:[id number] Ordering Provid er: ISATU TODD Report Released Date/Time: Dec 11, 2021 07:42 AM Reporting Lab: [facility] [address] [address] Performing Lab: [facility] [address] [address] UREA NITROGEN 12 7-25 SODIUM 136 135-145 [...] AM Reporting Lab: [facility] [address] [address] Performing Lab: [facility] [address] [address] WBC 5.6 4.5-11.0 RBC 4.28 4.23-5.66 HGB [...] 0.00 0-0 Dec 12, 2021 06:[address] [facility] CBC PROFILE Sp ecimen Type: BLOOD No comment enter ed. Ordering Provid er: ISATU TODD Report Released Date/Time: Dec 10, 2021 07:22 AM Reporting Lab[facility] [address] [address] [facility] Lab: [facility] [address] [address] WBC 5.5 4.5-11.0 RBC 4.37 4.23-5.66 HGB [...] NRBC 0.00 0-0 Dec 12, 2021 [facility] P4 GLU,BUN,CREAT,LYTES,CA Speci men Type: PLASMA 06:21 AM [facility] Comment: Tests performed on IncellDx (107) SN:[id number] Ordering Provid er: ISATU TODD Report Released Date/Time: Dec 11, 2021 07:42 AM Reporting Lab: [facility] [address] [address] [facility]forming Lab: [facility] [address] [address] UREA NITROGEN 11 7-25 SODIUM 139 135-145 POTASSIUM 4.1 3.5-5.0 CHLORIDE 107 100-110 CARBON DIOXIDE 24 20-30 ANION GAP 8 4-16 GLUCOSE 110 H 65-100 CREATININE 0.70 0.5-1.5 CALCIUM 8.3 L 8.5-10.5 eGFR(CKD-EPI 2020) >90.0 >60 Dec 12, 2021 06:00 AM [place] [facility] MAGNESIUM Sp ecimen Type: PLASMA Comment: Testin g Performed on IncellDx (405) SN:[id number] Ordering Provid er: ISATU TDOD Report Released Date/Time: Dec 12, 2021 08:24 AM Reporting Lab: [place] [facility] [address] [address] Performing Lab: [place] [facility] [address] [address] MAGNESIUM 1.8 1.6-2.6 Dec 12, 2021 06:00 AM [email or web address] [place] [facility] PHOSPHORUS Sp ecimen Type: PLASMA Comment: Testin g Performed on IncellDx (405) SN:[id number] Ordering Provid er: ISATU TODD Report Released Date/Time: Dec 12, 2021 08:24 AM Reporting Lab: [place] [facility] [address] [address] Performing Lab: [place] [facility] [address] [address] PHOSPHORUS 3.1 2.5-5.0 Dec 11, 2021 06:15 AM [email or web address] [place] [facility] mydecoMROC ELECTROLYTES Sp ecimen Type: PLASMA Comment: Tests performed on IncellDx (405) SN:[id number] Ordering Provid er: ISATU TODD Report Released Date/Time: Dec 10, 2021 07:22 AM Reporting Lab: [place] [facility] [address] [address] Performing Lab: [place] [facility] [address] [address] SODIUM 137 135-145 POTASSIUM 4.3 3.5-5.0 CHLORIDE 108 100-110 CARBON DIOXIDE 20 20-30 ANION GAP 9 4-16 Dec 11, 2021 06:15 AM [place] [facility] CBC PROFILE Sp ecimen Type: BLOOD Comment: Result s checked Ordering Provid er: ISATU TODD Report Released Date/Time: Dec 10, 2021 07:22 AM Reporting Lab: [place] [facility] [address] [address] Performing Lab: [facility] [place] [facility]ME[facility] [address] [address] WBC 5.8 4.5-11.0 RBC 4.37 4.23-5.66 HGB [...] ecimen Type: PLASMA Comment: Tests performed on IncellDx (853) SN:[id number] Results checked Ordering Provid er: ISATU TODD Report Released Date/Time: Dec 11, 2021 07:44 AM Reporting Lab: [facility] [address] [address] Performing Lab: [place] OMEGAT NDMROC [address] [address] PHOSPHORUS 3.0 2.5-5.0 Dec 10, 2021 08:05 AM [place] [facility] MAGNESIUM Sp ecimen Type: PLASMA Comment: [place] [id number] on Dec 10, 2021@08:31 Tests performed on IncellDx (405) SN:[id number] Ordering Provid er: ISATU TODD Report Released Date/Time: Dec 10, 2021 07:22 AM Reporting Lab: [place] [facility] [address] [place] [facility] [place] [address] Performing Lab: [place] [facility] [address] [place] [facility] [place] [address] MAGNESIUM 1.7 1.6-2.6 Dec 10, 2021 08:05 AM [place] [facility] PHOSPHORUS Sp ecimen Type: PLASMA Comment: [place] [id number] on Dec 10, 2021@08:31 Tests performed on IncellDx (405) SN:[id number] Ordering Provid er: ISATU TODD Report Released Date/Time: Dec 10, 2021 07:22 AM Reporting Lab: [place] [facility] [address] [place] [facility] [place] [address] Performing Lab: [place] [facility] [address] [place] [facility] [place] [address] PHOSPHORUS 1.8 L 2.5-5.0 Dec 10, 2021 08:05 AM [place] [facility] GLUCOSE Sp ecimen Type: PLASMA Comment: [place] [id number] on Dec 10, 2021@08:31 Tests performed on IncellDx (405) SN:[id number] Ordering Provid er: ISATU TODD Report Released Date/Time: Dec 10, 2021 07:22 AM Reporting Lab: [place] [facility] [address] [place] [facility] [place] [address] Performing Lab: [place] [facility] [address] [place] [facility] [place] [address] GLUCOSE 144 H 65-100 Dec 10, 2021 08:05 AM [place] UREA NITROGEN Specimen Type: PLASMA [facility] Comment: [place] [id number] on Dec 10, 2021@08:31 Tests performed on IncellDx (405) SN:[id number] Ordering Provid er: ISATU TODD Report Released Date/Time: Dec 10, 2021 07:22 AM Reporting Lab: [place] [facility] [address] [address] Performing Lab: [place] [facility] [address] [address] UREA NITROGEN 8 7-25 Dec 10, 2021 08:05 AM [place] [facility] ELECTROLYTES Sp ecimen Type: PLASMA Comment: [place] [id number] on Dec 10, 2021@08:31 Tests performed on Pham Microtune (405) SN:[id number] Ordering Provid er: ISATU TODD Report Released Date/Time: Dec 10, 2021 07:22 AM Reporting Lab: [place] [facility] [address] [address] Performing Lab: [place] [facility] [address] [address] SODIUM 139 135-145 POTASSIUM 3.7 3.5-5.0 CHLORIDE 107 100-110 CARBON DIOXIDE 24 20-30 ANION GAP 8 4-16 Dec 10, 2021 08:05 AM [place] [facility] CALCIUM Sp ecimen Type: PLASMA Comment: [place] [id number] on Dec 10, 2021@08:31 Tests performed on Pham Microtune (405) SN:[id number] Ordering Provid er: ISATU TODD Report Released Date/Time: Dec 10, 2021 07:22 AM Reporting Lab: [place] [facility] [address] [facility] [address] Performing Lab: [place] [facility] [address] [address] CALCIUM 8.3 L 8.5-10.5 Dec 10, 2021 08:05 [place] CREATININE WITH eGFR Specime n Type: PLASMA AM [facility] PANEL Comment: [place] [id number] on Dec 10, 2021@08:31 Tests performed on IncellDx (405) SN:[id number] Ordering Provid er: ISATU TODD Report Released Date/Time: Dec 10, 2021 07:22 AM Reporting Lab: [place] [facility] [address] [address] Performing Lab: [place] [facility] [address] [address] CREATININE 0.78 0.5-1.5 eGFR(CKD-EPI 2020) >90.0 >60 Dec 10, 2021 08:[address] [facility] CBC PROFILE Sp ecimen Type: BLOOD No comment enter ed. Ordering Provid er: ISATU TODD Report Released Date/Time: Dec 10, 2021 07:22 AM Reporting Lab: [facility] [facility] [address] [address] Performing Lab: [place] [facility] [address] [address] WBC 7.0 4.5-11.0 RBC 4.54 4.23-5.66 HGB [...] 0-0 Dec 09, 2021 06:[address] [facility] MAGNESIUM Sp ecimen Type: PLASMA Comment: Tests performed on IncellDx (778) SN:[id number] Ordering Provid er: ISATU TODD Report Released Date/Time: Dec 08, 2021 10:23 AM Reporting Lab: [facility] [address] [address] [facility]forming Lab: [facility] [address] [address] MAGNESIUM 1.6 1.6-2.6 Dec 09, 2021 06:[address] [facility] CBC PROFILE Sp ecimen Type: BLOOD No comment enter ed. Ordering Provid er: ISATU TODD Report Released Date/Time: Dec 08, 2021 05:00 PM Reporting [facility] [address] [address] Performing Lab: [facility] [address] [address] WBC 7.1 4.5-11.0 RBC 4.40 4.23-5.66 HGB [...] NRBC 0.00 0-0 Dec 09, 2021 [facility] P4 GLU,BUN,CREAT,LYTES,CA Speci men Type: PLASMA 06:46 AM [facility] Comment: Tests performed on IncellDx (930) SN:[id number] Ordering Provid er: ISATU TODD Report Released Date/Time: Dec 08, 2021 05:00 PM Reporting Lab: [facility] [address] [address] Performing Lab: [place] [facility] [address] [address] UREA NITROGEN 6 L 7-25 SODIUM 134 L 135-145 POTASSIUM 3.7 3.5-5.0 CHLORIDE 103 100-110 CARBON DIOXIDE 23 20-30 ANION GAP 8 4-16 GLUCOSE 112 H 65-100 CREATININE 0.70 0.5-1.5 CALCIUM 8.1 L 8.5-10.5 eGFR(CKD-EPI 2020) >90.0 >60 Dec 08, 2021 06:[address] [facility] MAGNESIUM Sp ecimen Type: PLASMA Comment: Testin g Performed on Pham Social Service Agency Director (405) SN:[id number] Ordering Provid er: ISATU TODD Report Released Date/Time: Dec 07, 2021 10:32 AM Reporting Lab[facility] [address] [address] [facility]forming Lab: [facility] [address] [facility] [address] MAGNESIUM 1.5 L 1.6-2.6 Dec 08, 2021 [facility] P4 GLU,BUN,CREAT,LYTES,CA Speci men Type: PLASMA 06:39 AM [facility] Comment: Testin g Performed on IncellDx (405) SN:[id number] Ordering Provid er: ISATU TODD Report Released Date/Time: Dec 07, 2021 10:32 AM Reporting Lab[facility] [address] [facility] [address] [facility]forming Lab: [facility] [address] [facility] [address] UREA NITROGEN 6 L 7-25 SODIUM 136 135-145 POTASSIUM 3.3 L 3.5-5.0 CHLORIDE 104 100-110 CARBON DIOXIDE 22 20-30 ANION GAP 10 4-16 GLUCOSE 133 H 65-100 CREATININE 0.76 0.5-1.5 CALCIUM 8.4 L 8.5-10.5 eGFR(CKD-EPI 2020) >90.0 >60 Dec 08, 2021 06:39 AM [facility] CBC PROFILE Sp ecimen Type: BLOOD No comment enter ed. Ordering Provid er: ISATU TODD Report Released Date/Time: Dec 07, 2021 10:32 AM Reporting Lab: [facility] [address] [address] Performing Lab: [facility] [address] [address] WBC 8.4 4.5-11.0 RBC 4.75 4.23-5.66 HGB [...] GLU,BUN,CREAT,LYTES,CA Speci men Type: PLASMA 06:42 AM [facility] Comment: Tests performed on IncellDx (405 SN:[id number] Ordering Provid er: PORFIRIO WALTERS Report Released Date/Time: Dec 06, 2021 06:57 PM Reporting Lab: [facility] [address] [address] Performing Lab: [facility] [address] [address] UREA NITROGEN 9 7-25 SODIUM 135 135-145 POTASSIUM 3.5 3.5-5.0 CHLORIDE 103 100-110 CARBON DIOXIDE 22 20-30 ANION GAP 10 4-16 GLUCOSE 92 65-100 CREATININE 0.73 0.5-1.5 CALCIUM 8.0 L 8.5-10.5 eGFR(CKD-EPI 2020) >90.0 >60 Dec 07, 2021 06:42 [place] LIVER PROFILE Specimen Typ e: PLASMA AM [facility] Comment: Tests performed on [employer] Social Service Agency Director (405) SN:[id number] Ordering Provid er: PORFIRIO WALTERS Report Released Date/Time: Dec 06, 2021 06:57 PM Reporting [facility] [address] [address] [facility]forming Lab: [facility] [address] [facility] [address] PROTEIN, TOTAL 5.7 L 6.0-8.5 ALBUMIN 2.4 L 3.2-5.0 BILIRUBIN, TOTAL 0.4 0.2-1.2 ALKALINE PHOSPHATASE 109 40-150 ALT(SGPT) 10 7-52 AST(SGOT) 15 5-34 FIB-4 SCORE 1.92 <2.67 Dec 07, 2021 06:42 AM [facility] CBC PROFILE Specimen Type: BLOOD [facility] No comment enter ed. Ordering Provid er: PORFIRIO WALTERS Report Released Date/Time: Dec 06, 2021 06:57 PM Reporting Lab[facility] [address] [address] [facility] Lab: [facility] [address] [address] WBC 5.7 4.5-11.0 RBC 4.15 L 4.23-5.66 [...] [facility] %) AUTOMATED Comment: Tests performed on IncellDx (405) SN:[id number] Ordering Provid er: ISATU TODD Report Released Date/Time: Dec 07, 2021 10:28 AM Reporting Lab: [place] [facility] [address] [facility] [address] Performing Lab: [place] [facility] [address] [address] RETICULOCYTES (%) AUTOMATED 1.23 0. 6-2.0 RETICULOCYTES (ABS) AUTOMATED 0.052 0.030-0.090 Dec 06, 2021 09:45 [place] MRSA SURVL NARES Specimen Ty pe: NARES PM [facility] DNA No comment enter ed. Ordering Provid er: ALVARO VARGHESE Report Released Date/Time: Dec 07, 2021 02:20 AM Reporting Lab: [place] [facility] [address] [facility] [address] Performing Lab: [place] [facility] [address] [address] MRSA SURVL NARES DNA NEGATIVE NEGATIVE Dec 06, 2021 06:00 [place] URINALYSIS W/REFLEX TO Speci men Type: URINE PM [facility] CULTURE No comment enter ed. Ordering Provid er: JELANI SÁNCHEZ Report Released Date/Time: Dec 06, 2021 11:57 AM Reporting Lab: [place] [facility] [address] [address] Performing Lab: [place] [facility] [address] [address] URINE COLOR Arlin YELLOW SPECIFIC GRAVITY 1.029 [...] 21, [place]IANT Comment: https://www.cdc.gov/coronavirus/2019-ncov/cases-updates/variant- surveillance/variant-info.html The [employer] SARS CoV 2 [employer] Research Assay-GX is a next-generation sequencing (NGS) assa 2021 [facility] SEQUENCING y that determine s the complete genome sequence of the SARS-CoV-2 virus. The assay contains variant-tolerant primers to broaden and improve the coverage for variant detection and increase the sensitivity 12:00 [facility] PNL(WH) of the panel to enable detection from lower viral titer samples. The assay is run on the [employer] Sequencer, which performs automated library preparation, sequencing, analysis, and reporting. PM The sequence an alysis includes determination of viral phylogenetic lineage by comparison to the reference strain Wuhan-Hu-1, GenBank: [id number]. Sequence determination may not be possible owing [...] [facility] [address] [address] [facility]forming Lab: [facility] [address] [facility] [address] SARS-CoV-2 CLADE() 22C (OMICRON) SARS-CoV-2 LINEAGE() BA.2.12.1 Dec 06, 2021 12:00 [facility] COVID-19 AG SCREEN Specimen Type: NASAL CAVITY PM [facility] PANEL BINAX(405) Comment: Testi ng Performed By: Mike Briscoe Ordering Provid er: JELANI SÁNCHEZ Report Released Date/Time: Dec 08, 2021 08:23 AM Reporting Lab[facility] [address] [facility] [facility] [address] Performing Lab: [facility] [address] [facility] [address] COVID-19 AG SCRN(wrj BINAX) POSITIVE HH NE G Dec 06, 2021 12:[address] [facility] LIVER PROFILE Sp ecimen Type: PLASMA Comment: Testin g Performed on Pham Social Service Agency Director (405) SN:[id number] Ordering Provid er: JELANI SÁNCHEZ Report Released Date/Time: Dec 06, 2021 11:57 AM Reporting Lab[facility] [address] [facility] [facility] [address] [facility] Lab: [facility] [address] [facility] [facility] [address] PROTEIN, TOTAL 6.6 6.0-8.5 ALBUMIN 2.8 L 3.2-5.0 BILIRUBIN, TOTAL 0.6 0.2-1.2 ALKALINE PHOSPHATASE 134 40-150 ALT(SGPT) 13 7-52 AST(SGOT) 18 5-34 FIB-4 SCORE 1.94 <2.67 Dec 06, 2021 12:00 [facility] Sp ecimen Type: PLASMA Comment: Tests performed on Pham Social Service Agency Director (405) SN:[id number] Ordering Provid er: JELANI SÁNCHEZ Report Released Date/Time: Dec 06, 2021 11:57 AM Reporting Lab[facility] [address] [facility] [facility] [address] Performing Lab: [facility] [address] [facility] [facility] [address] TROPONIN II 0.03 0.00-0.29 Dec 06, 2021 [facility] P4 GLU,BUN,CREAT,LYTES,CA Speci men Type: PLASMA 12:00 PM [facility] Comment: Testin g Performed on Pham Social Service Agency Director (405) SN:[id number] Ordering Provid er: JELANI SÁNCHEZ Report Released Date/Time: Dec 06, 2021 11:57 AM Reporting Lab: [facility] T [facility] [address] [facility] [facility] [address] Performing Lab: [facility] [address] [facility] [address] UREA NITROGEN 13 7-25 SODIUM 138 135-145 POTASSIUM 3.8 3.5-5.0 CHLORIDE 103 100-110 CARBON DIOXIDE 23 20-30 ANION GAP 12 4-16 GLUCOSE 105 H 65-100 CREATININE 0.90 0.5-1.5 CALCIUM 8.7 8.5-10.5 eGFR(CKD-EPI 2020) >90.0 >60 Dec 06, 2021 12:[address] [facility] Sp ecimen Type: PLASMA Comment: Tests performed on [employer] Director (405) [id number] Ordering Provid er: JELANI SÁNCHEZ Report Released Date/Time: Dec 06, 2021 11:57 AM Reporting Lab: [facility] [address] [facility] [address] Performing Lab: [facility] T [facility] [address] [facility] [address] BNP(P) 224.8 H 10-100 Dec 06, 2021 [place] [place] COVID-19+FLU/RSV DIAGNOSTIC Spe cimen Type: NASOPHARYNX 12:00 PM [facility] PANEL(405) Comment: Tests performed on Pagar.mexpert (405) Critical results called to and read back by: ALESHIA WILKINSON RN 12/06/21 @ 1312 Ordering Provid er: JELANI SÁNCHEZ Report Released Date/Time: Dec 06, 2021 11:57 AM Reporting Lab: [facility] [address] [facility] [address] Performing Lab: [place] [facility] [address] [facility] [address] FLU A(PCR) NEGATIVE NEGATIVE FLU B(PCR) NEGATIVE NEGATIVE RSV(PCR) NEGATIVE NEGATIVE COVID-19([id number]) DETECTED HH NO T DETECTED Dec 06, 2021 12:[facility] Sp ecimen Type: BLOOD No comment enter ed. Ordering Provid er: JELANI SÁNCHEZ Report Released Date/Time: Dec 06, 2021 11:57 AM Reporting Lab: [facility] [address] [facility] [address] Performing Lab: [facility] [address] [facility] [address] WBC 7.2 4.5-11.0 RBC 4.86 4.23-5.66 HGB [...] 2021 07:56 /min mm[Hg] [facility] PM [facility] R[facility] Dec 11, 3 WHITE 2021 07:49 [facility] PM [facility] Dec 11, 98.3 F 98 127/83 18 /min 97 % 0 WHITE 2021 02:50 /min mm[Hg] R[facility] PM T [facility] Dec 11, 0 WHITE 2021 01:57 [facility] PM [facility] Dec 11, 0 WHITE 2021 08:49 R[place] AM [facility] Social History: Smoking Status (Most current) [...] IN PAST YEAR [facility] DOYLE [facility] May 01, 2016 11:19 AM QUIT TOBACCO USE IN PAST YEAR [facility] [facility] [place] Mar 16, 2016 12:50 PM V1-PT DECLINES REF TO TOBACCO ACREY DOYLE [facility] CESS PRGM Mar 16, 2016 12:50 PM V1-PT THINKING ABOUT QUIT CAREY DOYLE [facility] TOBACCO USE Aug 12, 2015 08:48 AM CURRENT SMOKER CAREY Yates [facility] Radiology Reports: +/- 30 days of [...] W/WO CONTRAST: MARYELLEN LONG LUCAS LARES N [id number] -1950 [facility] Exm Date: DEC 13, 2021@12:57 Req Phys: ISATU TODD Loc: OP Unknown/0 12-15-2021@13:20 Img Loc: MRI IMAGING (OOS) Service: ZGENERAL MEDICINE (Case [id number] COMPLETE) MRI ABDOMEN W/WO CONTRAST (M RI Detailed) CPT:48659 Reason for Study: further characterization of a [...] new lyphadenopathy REQUESTING MD: Isatu Todd PAGER: [phone] PHONE: [phone] Weight: 232.2 lb [105.32 kg] (12/12/2021 05:00) [...] 15, 2021 Date Verified: DEC 15, 2021 Upholsterer Apprentice E-Sig:/ES/MARYELLEN LONG Report: MRI ABDOMEN W/WO CONTRAST [...] MALIGNANCY Primary Interpreting Staff: Staff AMELIA THOMAS (Upholsterer Apprentice) / Dec 10, 2021 09:[address] ABDOMEN & PELVIS: [facility] N [id number] -1950 M [facility] Exm Date: DEC 10, 2021@09:30 Req Phys: ISATU TODD Loc: 1S MED/12-10@10:57 Img Loc: CT SCAN (OOS) Service: [facility] MEDICINE (Case [id number] COMPLETE) CT ABD & PELVIS WITHOUT CONT RAST (CT Detailed) CPT:60607 Reason for Study: 71 yo male with [...] INDEX - NO HEIGHTS FOUND Pager number: [phone] STAT orders MUST be call ed to RADIOLOGY [phone] to speak to the appropriate drafting technician. Report Status: Verified Date Reported: DEC 10, 2021 Date Verified: DEC 10, 2021 Upholsterer Apprentice E-Sig: Report: EXAM: CT abdomen and pelvis [...] ph nodes. READING PHYSICIAN: Ramone Munoz D.O. [phone] 12/10/2021 10:55 EDT [facility] National Teleradiology Program [phone] (For Medical Practitioner Use Only ) [address] [facility], [facility] [address], [address] [place] [address] Attention Patients / Veterans: If you have ques tions or concerns about these test results, please contact your o rdering provider or primary care team. Primary Diagnostic Code: SIGNIFICANT ABNORMALIT Y, ATTN NEEDED Primary Interpreting Staff: RADIOLOGY,OUTSIDE SERVICE, Staff Physician / Dec 09, 2021 07:34 AM BASW (MODIFIED): JESSIE CHENEY TARA ER JCT LUCAS MEEK [id number] -1950 M [facility] Exm Date: DEC 09, 2021@07:34 Req Phys: ISATU TODD Yao Manjarrez Loc: 1S MED/12-09@11:26 Img Loc: XRAY (OOS) Service: [facility] MEDICINE (Case [id number] COMPLETE) BASW (MODIFIED) (RAD Detaile d) CPT:25549 Contrast Media : Barium Reason for Study: dysphagia ?esophageal spasm Clinical History: Report Status: Verified Date Reported: DEC 09, 2021 Date Verified: DEC 09, 2021 Upholsterer Apprentice E-Sig:/ES/JESSIE CHENEY Report: BASW (MODIFIED) , 12/09/2021 [...] REQUIRED Primary Interpreting Staff: JESSIE CHENEY, RADIOLOGIST (Upholsterer Apprentice) /TLC Dec 06, 2021 12:[address] CHEST (INCLUDES ADRENALS): [facility]Y [facility] [id number] -1950 [facility] Ex[facility] Date: DEC 06, 2021@12:59 Req Phys: GONZALOJELANI Loc: [facility] ED DAYS M 1RD (Req'g Loc) Img Loc: CT SCAN (OOS) Service: Unknown (Case [id number] COMPLETE) CT THORAX W/O CONT (CT Detai led) CPT:71542 Reason for Study: Opacification right chest Clinical History: No contrast allergy BUN: 13 (12/06/21 12:00) CREATI: 0.90 (12/06/21 12:00) eGFR 05/16/21 09:43 52 L Weight: 232.6 lb [105.51 kg] (12/06/2021 11:40) BODY MASS INDEX - NO HEIGHTS FOUND Pager number: [phone] STAT orders MUST be called t o RADIOLOGY [phone] to speak to the appropriate drafting technician. Indications - Other: Opacification right chest, covid positive, lung cancer histo Report Status: Verified Date Reported: DEC 06, 2021 Date Verified: DEC 06, 2021 Upholsterer Apprentice E-Sig:/ES/JESSIE CHENEY Report: CT THORAX W/O CONT [...] REQUIRED Primary Interpreting Staff: JESSIE CHENEY, RADIOLOGIST (Upholsterer Apprentice) Primary Interpreting Resident: PRINCE CHAMPION, Resident /BR Dec 06, 2021 11:58 AM CHEST SINGLE VIEW: JESSIE CHENEYT LUCAS MEEK N [id number] -1950 [facility] Exm Date: DEC 06, 2021@11:58 Req Phys: JELANI SÁNCHEZ Pat Loc: [facility] ED DAYS M 1RD (Req'g Loc) Img Loc: XRAY (OOS) Service: Unknown (Case [id number] COMPLETE) CHEST SINGLE VIEW (RAD Detai led) CPT:19101 Proc Modifiers : PORTABLE EXAM Reason for Study: SOB, home covid test positive Clinical History: Report Status: Verified Date Reported: DEC 06, 2021 Date Verified: DEC 06, 2021 Upholsterer Apprentice E-Sig:/ES/JESSIE CHENEY Report: Exam type: Chest x-ray [...] REQUIRED Primary Interpreting Staff: JESSIE CHENEY, RADIOLOGIST (Upholsterer Apprentice) /TLC Pathology Reports: +/- 30 days of [...] MILLER LOCAL TITLE: LR SURGICAL PATHOLOGY REPORT [facility] STANDARD TITLE: PATHOLOGY REPORT DATE OF NOTE: JAN 03, 2022@10:28:01 ENTRY DATE: JAN 03, 2022@10:28:01 AUTHOR: NIURKA MILLER EXP COSIGNER: URGENCY: STATUS: COMPLETED $APHDR Reporting Lab: [facility]Y MONTO[facility] [CLIA# [id number]] [address] [place] [address] - - - - - - [...] automatically d ocumented from SURGERY package case #[id number] Field (#32) PRINCIPAL PRE-OP DIAGNOSIS, (#.72) OTHER [...] automatically d ocumented from SURGERY package case #[id number] Field (#34) PRINCIPAL POST-OP DIAG, (#.74) OTHER [...] Label: Lucas Meek Paperwork: Lucas Meek Cassette: [id number];..;KALYANI;.;405;[id number] Specimen is labeled: ES bx Received in formalin are several pieces of pale boyd and brown tissue, 1.2 x 0.7 cm in aggregate. Submitted entirely in 1 cassette [id number];..;KALYANI;.;405;[id number] SAW 12/15/2021 Microscopic exam: *+* MODIFIED REPORT [...] in rendering the final pathologic diagnosis. [address] [address] CPT: 94500 /emely/ NIURKA Yeung MD Signed Jan 03, 2022@10:28 Performing Laboratory: Surgical Pathology Report Performed By: [facility] MONTO[facility] [CLIA# [id number]] [address] [place] [address] $FTR - - - - - [...] - - LUCAS MEEK STANDARD FORM 515 ID:[id number] SEX:M :1950 AGE: 71 LOC: SDM END PCP: Isatu Todd /emely/ NIURKA MILLER Staff Signed: 01/03/2022 10:28 Dec 21, 2021 11:46 AM LR SURGICAL PATHOLOGY REPORT: STEFANY MILLER [facility] LOCAL TITLE: LR SURGICAL PATHOLOGY REPORT [facility] STANDARD TITLE: PATHOLOGY REPORT DATE OF NOTE: DEC 21, 2021@11:46:59 ENTRY DATE: DEC 21, 2021@11:46:59 AUTHOR: NIURKA MILLER EXP COSIGNER: URGENCY: STATUS: COMPLETED $APHDR Reporting Lab: [facility] [CLIA# [id number]] [address] [place] [address] - - - - - - [...] automatically d ocumented from SURGERY package case #[id number] Field (#32) PRINCIPAL PRE-OP DIAGNOSIS, (#.72) OTHER [...] automatically d ocumented from SURGERY package case #[id number] Field (#34) PRINCIPAL POST-OP DIAG, (#.74) OTHER [...] Label: Lucas Meek Paperwork: Lucas Meek Cassette: [id number];..;KALYANI;.;405;[phone] Specimen is labeled: ES bx Received in formalin are several pieces of pale boyd and brown tissue, 1.2 x 0.7 cm in aggregate. Submitted entirely in 1 cassette [id number];..;KALYANI;.;405;[id number] SAW 12/15/2021 Microscopic exam: DIAGNOSIS: A. 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 Kendell long. TIARA Coombs was notified on 12/21/21. The attending pathologist who signature mansoor ears on this report has reviewed all diagnostic slides and has edited t he gross and/or microscopic portion of this report in rendering the final pathologic diagnosis. [address] [address] CPT: 10719 /emely/ NIURKA Yeung MD Signed Dec 21, 2021@11:46 Performing Laboratory: Surgical Pathology Report Performed By: [facility] [CLIA# [id number]] [address] [place] [address] $FTR - - - - - [...] - - LUCAS MEEK STANDARD FORM 515 ID:[id number] SEX:M :1950 AGE: 71 [facility] PCP: Isatu Todd /charmaine Yeung MD Signed: 12/21/2021 11:46 Dec 06, 2021 03:30 PM LR MICROBIOLOGY REPORT: [facility] Reporting Lab: [facility] [CLIA# [id number]] [address] [place] [address] Accession [UID]: [id number] [[id number]] Receiv ed: Dec 06, 2021@16:14 Collection sample: BLOOD CUL T BOTTLE(NIRMAL/AERO)Collection date: Dec 06, 2021 15:30 Site/Specimen: BLOOD Provider: JELANI SÁNCHEZ Comment on specimen: LAC Test(s) ordered: BLOOD CULTURE ANAEROBI C....... completed: Dec 12, 2021 06:18 * BACTERIOLOGY FINAL REPORT => Dec 12, 2021 06:1 8 TECH CODE: [id number] Bacteriology Remark(s): NO GROWTH IN 5 DAYS =--=--=--=--=--=--=--=--=--=--=--=--=--= --=--=--=--=--=--=--=--=--=--=--=--=-- Performing Laboratory: Bacteriology Report Performed By: [facility] [CLIA# [id number]] [address] [place] [address] Dec 06, 2021 03:30 PM LR MICROBIOLOGY REPORT: [facility] Reporting Lab: [facility] [CLIA# [id number]] [address] [place] [address] Accession [UID]: [id number] [[id number]] Receiv ed: Dec 06, 2021@16:14 Collection sample: BLOOD CUL T BOTTLE(NIRMAL/AERO)Collection date: Dec 06, 2021 15:30 Site/Specimen: BLOOD Provider: JELANI SÁNCHEZ Comment on specimen: LAC Test(s) ordered: BLOOD CULTURE AEROBIC. ........ completed: Dec 12, 2021 06:17 * BACTERIOLOGY FINAL REPORT => Dec 12, 2021 06:1 7 TECH CODE: [id number] Bacteriology Remark(s): NO GROWTH IN 5 DAYS =--=--=--=--=--=--=--=--=--=--=--=--=--= --=--=--=--=--=--=--=--=--=--=--=--=-- Performing Laboratory: Bacteriology Report Performed By: [facility] [CLIA# [id number]] [address] [place] [address]
--- OUTSIDE RECORDS SUMMARY | 2022-01-19 09:08 | XMS_ITS ---
DAILY HOSPITALIZATION DATA [facility] Encounter Summary Created on:December 11, 2021 Patient:LUCAS MEEK Sex:Male :1950 Author Organization [facility] Address [address] [place] [id number] Support Name Relationship Address Phone YUSRA MEEK Unavailable [address] [place] [address] YUSRA MEEK Unavailable [address] [place] [facility] [place] [address] CLAY MOSLEY Unavailable Unavailable JS SANTACRUZ Unavailable Unavailable Insurance Providers: All historical [...] MEDICARE MEDICARE PART Jun 18, PART A [id number] KALYANI PATIENT (WNR) (M) A 2016 13A 1 U[place]AS MEDICARE MEDICARE PART Jun 18, PART A [id number] MEEK DO PATIENT (WNR) (M) A 2017 VH81 2 [place] MEDICARE MEDICARE PART Jun 18, PART B [id number] KALYANIDO PATIENT (WNR) (M) B 2017 VH81 2 [place] MEDICARE MEDICARE PART Jun 18, PART B [id number] DO KALYANI PATIENT (WNR) (M) B 2016 13A 1 [place] UNITED MEDICARE MCR(Jun 18 [id number] Luz MEEK PATIENT HEALTHCARE ADVANTAGE NR) 2021 37 0 U[place]AS MCR (WNR) Selected Encounter This section includes the information on record at [place] for the Encounter. Date/Time Encounter Type Encounter Description Reason Provider Source Dec 11, 2021 01:52 Inpatient Visit DAILY HOSPITALIZATION DATA AM [facility] Encounter Template Text not used by [place] [...] [place] [facility] Jan 10, 2022 11:30 AM AMBULATORY - MEDICINE [facility] Jan 24, 2022 08:00 AM [place] [facility] Feb 21, 2022 10:00 AM [place] [facility] Mar 21, 2022 [...] The data comes from all [place] treatment [facility]. Test Date/Time Test Type Test Details Facility Name October 31, 2021 07:37 AM Consult Order COMMUNITY CARE-EGD [facility] Cons Treatment Technician's Choice November 15, 2021 10:37 AM Consult Order [facility] CARE-PODIATRY Cons Treatment Technician's Choice Dec 06, 2021 12:52 PM [place] Infusion Order [facility] Dec 06, 2021 03:24 PM [place] [facility] Dec 06, 2021 03:40 PM [place]acy [place] [facility] [facility] Dec 15, 2021 08:41 AM Consult Order SPEECH PATHOLOGY [place] OUTPATIENT Cons [facility] Treatment Technician's Choice Jan 15, 2022 10:08 PM Consult Order [facility] CARE-PALLIATIVE CARE Cons Treatment Technician's Choice Lab Results: +/- 30 days [...] Reference Range Comment Dec 15, 2021 [place] P4 GLU,BUN,CREAT,LYTES,CA Speci men Type: PLASMA 06:43 AM [facility] Comment: Tests performed on Wish (405) SN:[id number] Ordering Provid er: ISATU TODD Report Released Date/Time: Dec 11, 2021 07:42 AM Reporting Lab: [facility] T [facility] [address] [facility] [address] Performing Lab: [facility] [address] [facility] [address] UREA NITROGEN 9 7-25 SODIUM 137 135-145 POTASSIUM 3.8 3.5-5.0 CHLORIDE 105 100-110 CARBON DIOXIDE 26 20-30 ANION GAP 6 4-16 GLUCOSE 102 H 65-100 CREATININE 0.64 0.5-1.5 CALCIUM 8.1 L 8.5-10.5 eGFR(CKD-EPI 2020) >90.0 >60 Dec 15, 2021 06:43 AM [place] [facility] CBC PROFILE Sp ecimen Type: BLOOD No comment enter ed. Ordering Provid er: ISATU TODD Report Released Date/Time: Dec 10, 2021 07:22 AM Reporting Lab: [facility] [address] [facility] [address] Performing Lab: [facility] [address] [facility] [address] WBC 5.7 4.5-11.0 RBC 4.22 L 4.23-5.66 [...] NRBC 0.00 0-0 Dec 14, 2021 [facility] CYTOGENETIC Specimen Type: ESOPHAGUS 02:59 PM VA[facility] FISH([facility] Comment: ~For T est: CYTOGENETIC FISH([facility] [place] [place]) ~FISH HER 2 NUE, FFPE See full report in prollie Image display viewer/tab#LAB-Reference Ordering Provid er: NIURKA MILLER Report Released Date/Time: Dec 21, 2021 12:11 PM Reporting Lab: [facility] [address] [facility] [address] Performing Lab: [facility] CYTOGENETIC FISH([facility]) comment Dec 14, 2021 [facility] P4 GLU,BUN,CREAT,LYTES,CA Speci men Type: PLASMA 06:[address] [facility] Comment: Tests performed on Wish (405) SN:[id number] Ordering Provid er: ISATU TODD Report Released Date/Time: Dec 11, 2021 07:42 AM Reporting Lab: [facility] [address] [facility] [address] Performing Lab: [facility] [address] [facility] [address] UREA NITROGEN 10 7-25 SODIUM 137 135-145 POTASSIUM 4.0 3.5-5.0 CHLORIDE 104 100-110 CARBON DIOXIDE 25 20-30 ANION GAP 8 4-16 GLUCOSE 99 65-100 CREATININE 0.67 0.5-1.5 CALCIUM 8.2 L 8.5-10.5 eGFR(CKD-EPI 2020) >90.0 >60 Dec 14, 2021 06:27 AM [facility] CBC PROFILE Sp ecimen Type: BLOOD No comment enter ed. Ordering Provid er: ISATU TODD Report Released Date/Time: Dec 10, 2021 07:22 AM Reporting Lab: [facility] [address] [facility] [address] Performing Lab: [facility] [address] [facility] [address] WBC 6.0 4.5-11.0 RBC 4.29 4.23-5.66 HGB [...] 0.00 0-0 Dec 13, 2021 06:34 AM [facility] CBC PROFILE Sp ecimen Type: BLOOD No comment enter ed. Ordering Provid er: ISATU TODD Report Released Date/Time: Dec 10, 2021 07:22 AM Reporting Lab: [facility] [address] [facility] [address] Performing Lab: [facility] [address] [facility] [address] WBC 5.6 4.5-11.0 RBC 4.28 4.23-5.66 HGB [...] NRBC 0.00 0-0 Dec 13, 2021 [facility] P4 GLU,BUN,CREAT,LYTES,CA Speci men Type: PLASMA 06:[address] [facility] Comment: Tests performed on Wish (405) SN:[id number] Ordering Provid er: ISATU TODD Report Released Date/Time: Dec 11, 2021 07:42 AM Reporting Lab: [facility] [address] [facility] [address] Performing Lab: [facility] [address] [facility] [address] UREA NITROGEN 12 7-25 SODIUM 136 135-145 POTASSIUM 3.9 3.5-5.0 CHLORIDE 105 100-110 CARBON DIOXIDE 24 20-30 ANION GAP 7 4-16 GLUCOSE 102 H 65-100 CREATININE 0.66 0.5-1.5 CALCIUM 8.3 L 8.5-10.5 eGFR(CKD-EPI 2020) >90.0 >60 Dec 12, 2021 [facility] P4 GLU,BUN,CREAT,LYTES,CA Speci men Type: PLASMA 06:[address] [facility] Comment: Tests performed on Wish (405) SN:[id number] Ordering Provid er: ISATU TODD Report Released Date/Time: Dec 11, 2021 07:42 AM Reporting Lab: [facility] [address] [facility] [address] Performing Lab: [facility] [address] [facility] [address] UREA NITROGEN 11 7-25 SODIUM 139 135-145 POTASSIUM 4.1 3.5-5.0 CHLORIDE 107 100-110 CARBON DIOXIDE 24 20-30 ANION GAP 8 4-16 GLUCOSE 110 H 65-100 CREATININE 0.70 0.5-1.5 CALCIUM 8.3 L 8.5-10.5 eGFR(CKD-EPI 2020) >90.0 >60 Dec 12, 2021 06:[address] [facility] CBC PROFILE Sp ecimen Type: BLOOD No comment enter ed. Ordering Provid er: ISATU TODD Report Released Date/Time: Dec 10, 2021 07:22 AM Reporting Lab: [facility] [address] [facility] [address] Performing Lab: [facility] [address] [facility] [address] WBC 5.5 4.5-11.0 RBC 4.37 4.23-5.66 HGB [...] 0.00 0-0 Dec 12, 2021 06:00 AM [facility] MAGNESIUM Sp ecimen Type: PLASMA Comment: Testin g Performed on Wish (405) SN:[id number] Ordering Provid er: ISATU TODD Report Released Date/Time: Dec 12, 2021 08:24 AM Reporting Lab: [place] [facility] [address] [facility] [address] Performing Lab: [place] [facility] [address] [facility] [address] MAGNESIUM 1.8 1.6-2.6 Dec 12, 2021 06:00 AM [facility] PHOSPHORUS Sp ecimen Type: PLASMA Comment: Testin g Performed on Wish (405) SN:[id number] Ordering Provid er: ISATU TODD Report Released Date/Time: Dec 12, 2021 08:24 AM Reporting Lab: [place] [facility]T [facility] [address] [facility] [address] Performing Lab: [place] [facility] [address] [facility] [address] PHOSPHORUS 3.1 2.5-5.0 Dec 11, 2021 06:15 AM [place] [facility] [employer] ELECTROLYTES Sp ecimen Type: PLASMA Comment: Tests performed on Wish (405) SN:[id number] Ordering Provid er: ISATU TODD Report Released Date/Time: Dec 10, 2021 07:22 AM Reporting Lab: [place] [facility]T [facility] [address] [facility] [address] Performing Lab: [place] [facility] [address] [facility] [address] SODIUM 137 135-145 POTASSIUM 4.3 3.5-5.0 CHLORIDE 108 100-110 CARBON DIOXIDE 20 20-30 ANION GAP 9 4-16 Dec 11, 2021 06:15 AM [place] [facility] CBC PROFILE Sp ecimen Type: BLOOD Comment: Result s checked Ordering Provid er: ISATU TODD Report Released Date/Time: Dec 10, 2021 07:22 AM Reporting Lab: [place] [facility] [address] [facility] [address] Performing Lab: [place] [facility] [address] [facility] [address] WBC 5.8 4.5-11.0 RBC 4.37 4.23-5.66 HGB [...] 0.00 0-0 Dec 11, 2021 06:00 AM [facility] PHOSPHORUS Sp ecimen Type: PLASMA Comment: Tests performed on Wish (985) SN:[id number] Results checked Ordering Provid er: ISATU TODD Report Released Date/Time: Dec 11, 2021 07:44 AM Reporting Lab: [facility] [place] [facility] [address] [facility] [address] Performing Lab: [place] OMEGAT [facility] [address] [facility] [address] PHOSPHORUS 3.0 2.5-5.0 Dec 10, 2021 08:05 AM [place] [facility] MAGNESIUM Sp ecimen Type: PLASMA Comment: [place] [id number] on Dec 10, 2021@08:31 Tests performed on Wish (405) SN:[id number] Ordering Provid er: ISATU TODD Report Released Date/Time: Dec 10, 2021 07:22 AM Reporting Lab: [place] [facility] [address] [place] [facility] [place] [address] Performing Lab: [place] [facility] [address] [place] [facility] [place] [address] MAGNESIUM 1.7 1.6-2.6 Dec 10, 2021 08:05 AM [place] [facility] PHOSPHORUS Sp ecimen Type: PLASMA Comment: [place] [id number] on Dec 10, 2021@08:31 Tests performed on Wish (405) SN:[id number] Ordering Provid er: ISATU TODD Report Released Date/Time: Dec 10, 2021 07:22 AM Reporting Lab: [place] [facility] [address] [place] [facility] [place] [address] Performing Lab: [place] [facility] [address] [place] [facility] [place] [address] PHOSPHORUS 1.8 L 2.5-5.0 Dec 10, 2021 08:05 AM [place] UREA NITROGEN Specimen Type: PLASMA [facility] Comment: [place] [id number] on Dec 10, 2021@08:31 Tests performed on Wish (405) SN:[id number] Ordering Provid er: ISATU TODD Report Released Date/Time: Dec 10, 2021 07:22 AM Reporting Lab: [place] [facility] [address] [place] [facility] [place] [address] Performing Lab: [place] [facility] [address] [place] [facility] [place] [address] UREA NITROGEN 8 7-25 Dec 10, 2021 08:05 AM [place] [facility] GLUCOSE Sp ecimen Type: PLASMA Comment: [place] [id number] on Dec 10, 2021@08:31 Tests performed on Wish (405) SN:[id number] Ordering Provid er: ISATU TODD Report Released Date/Time: Dec 10, 2021 07:22 AM Reporting Lab: [place] [facility] [address] [facility] [address] Performing Lab: [place] [facility] [address] [facility] [address] GLUCOSE 144 H 65-100 Dec 10, 2021 08:05 AM [place] [facility] CALCIUM Sp ecimen Type: PLASMA Comment: [place] [id number] on Dec 10, 2021@08:31 Tests performed on Wish (405) SN:[id number] Ordering Provid er: ISATU TODD Report Released Date/Time: Dec 10, 2021 07:22 AM Reporting Lab: [place] [facility] [address] [facility] [address] Performing Lab: [place] [facility] [address] [facility] [address] CALCIUM 8.3 L 8.5-10.5 Dec 10, 2021 08:05 AM [place] [facility] ELECTROLYTES Sp ecimen Type: PLASMA Comment: [place] [id number] on Dec 10, 2021@08:31 Tests performed on Pham MaxCDN (405) SN:[id number] Ordering Provid er: ISATU TODD Report Released Date/Time: Dec 10, 2021 07:22 AM Reporting Lab: [place] [facility] [address] [facility] [address] Performing Lab: [place] [facility] [address] [facility] [address] SODIUM 139 135-145 POTASSIUM 3.7 3.5-5.0 CHLORIDE 107 100-110 CARBON DIOXIDE 24 20-30 ANION GAP 8 4-16 Dec 10, 2021 08:05 [place] CREATININE WITH eGFR Specime n Type: PLASMA AM [facility] PANEL Comment: [place] [id number] on Dec 10, 2021@08:31 Tests performed on Wish (405) SN:[id number] Ordering Provid er: ISATU TODD Report Released Date/Time: Dec 10, 2021 07:22 AM Reporting Lab: [place] [facility] [address] [facility] [address] Performing Lab: [place] [facility] [address] [facility] [address] CREATININE 0.78 0.5-1.5 eGFR(CKD-EPI 2020) >90.0 >60 Dec 10, 2021 08:05 AM [facility] CBC PROFILE Sp ecimen Type: BLOOD No comment enter ed. Ordering Provid er: ISATU TODD Report Released Date/Time: Dec 10, 2021 07:22 AM Reporting Lab: [place] OMEGAT [facility] [address] [facility] [address] Performing Lab: [place] OMEGAT [facility] [address] [facility] [address] WBC 7.0 4.5-11.0 RBC 4.54 4.23-5.66 HGB [...] 0.00 0-0 Dec 09, 2021 06:46 AM [facility] MAGNESIUM Sp ecimen Type: PLASMA Comment: Tests performed on Wish (701) SN:[id number] Ordering Provid er: ISATU TODD Report Released Date/Time: Dec 08, 2021 10:23 AM Reporting Lab: [facility] [address] [facility] [address] Performing Lab: [facility] [address] [facility] [address] MAGNESIUM 1.6 1.6-2.6 Dec 09, 2021 [facility] P4 GLU,BUN,CREAT,LYTES,CA Speci men Type: PLASMA 06:[address] [facility] Comment: Tests performed on Wish (405) SN:[id number] Ordering Provid er: ISATU TODD Report Released Date/Time: Dec 08, 2021 05:00 PM Reporting Lab: [facility] [address] [facility] [address] Performing Lab: [facility] [address] [facility] [address] UREA NITROGEN 6 L 7-25 SODIUM 134 [...] Lab: [facility] [address] [facility] [address] Performing Lab: [facility] [address] [facility] [address] WBC 7.1 4.5-11.0 RBC 4.40 4.23-5.66 HGB [...] 0-0 Dec 08, 2021 06:39 AM [place] [facility] MAGNESIUM Sp ecimen Type: PLASMA Comment: Testin g Performed on Wish (405) SN:[id number] Ordering Provid er: ISATU TODD Report Released Date/Time: Dec 07, 2021 10:32 AM Reporting Lab: [facility] [address] [facility] [address] Performing Lab: [facility] [address] [facility] [address] MAGNESIUM 1.5 L 1.6-2.6 Dec 08, 2021 06:39 AM [place] [facility] CBC PROFILE Sp ecimen Type: BLOOD No comment enter ed. Ordering Provid er: ISATU TODD Report Released Date/Time: Dec 07, 2021 10:32 AM Reporting Lab: [facility] [address] [facility] [address] Performing Lab: [facility] [address] [facility] [address] WBC 8.4 4.5-11.0 RBC 4.75 4.23-5.66 HGB [...] ABSOLUTE NRBC 0.00 0-0 Dec 08, 2021 [facility] P4 GLU,BUN,CREAT,LYTES,CA Speci men Type: PLASMA 06:39 AM [facility] Comment: Testin g Performed on Pham MaxCDN (405) SN:[id number] Ordering Provid er: ISATU TODD Report Released Date/Time: Dec 07, 2021 10:32 AM Reporting Lab: [facility] [address] [facility] [address] Performing Lab: [facility] [address] [facility] [address] UREA NITROGEN 6 L 7-25 SODIUM 136 135-145 POTASSIUM 3.3 L 3.5-5.0 CHLORIDE 104 100-110 CARBON DIOXIDE 22 20-30 ANION GAP 10 4-16 GLUCOSE 133 H 65-100 CREATININE 0.76 0.5-1.5 CALCIUM 8.4 L 8.5-10.5 eGFR(CKD-EPI 2020) >90.0 >60 Dec 07, 2021 [facility] P4 GLU,BUN,CREAT,LYTES,CA Speci men Type: PLASMA 06:42 AM [facility] Comment: Tests performed on Pham MaxCDN (405) SN:[id number] Ordering Provid er: PORFIRIO WALTERS Report Released Date/Time: Dec 06, 2021 06:57 PM Reporting Lab: [place] EnvalT [facility] [address] [facility] [address] Performing Lab: [facility] [address] [facility] [address] UREA NITROGEN 9 7-25 SODIUM 135 135-145 POTASSIUM 3.5 3.5-5.0 CHLORIDE 103 100-110 CARBON DIOXIDE 22 20-30 ANION GAP 10 4-16 GLUCOSE 92 65-100 CREATININE 0.73 0.5-1.5 CALCIUM 8.0 L 8.5-10.5 eGFR(CKD-EPI 2020) >90.0 >60 Dec 07, 2021 06:42 [place] LIVER PROFILE Specimen Typ e: PLASMA AM [facility] Comment: Tests performed on [employer] Grinder Set Up Operator Surface (405) SN:[id number] Ordering Provid er: PORFIRIO WALTERS Report Released Date/Time: Dec 06, 2021 06:57 PM Reporting Lab: [facility] [address] [facility] [address] Performing Lab: [facility] [address] [facility] [address] PROTEIN, TOTAL 5.7 L 6.0-8.5 ALBUMIN 2.4 [...] Dec 06, 2021 06:57 PM Reporting Lab: [facility] [address] [facility] [address] Per[facility]: [facility] [address] [facility] [address] WBC 5.7 4.5-11.0 RBC 4.15 L 4.23-5.66 [...] [facility]AM[facility] %) AUTOMATED Comment: Tests performed on Wish (405) SN:[id number] Ordering Provid er: ISATU TODD Report Released Date/Time: Dec 07, 2021 10:28 AM Reporting Lab: [place] [facility] [address] [facility] [address] Performing Lab: [place] [facility] [address] [facility] [address] RETICULOCYTES (%) AUTOMATED 1.23 0. 6-2.0 RETICULOCYTES (ABS) AUTOMATED 0.052 0.030-0.090 Dec 06, 2021 09:45 [place] MRSA SURVL NARES Specimen Ty pe: NARES PM [facility] DNA No comment enter ed. Ordering Provid er: ALVARO VARGHESE Report Released Date/Time: Dec 07, 2021 02:20 AM Reporting Lab: [place] [facility] [address] [facility] [address] Performing Lab: [place] [facility] [address] [facility] [address] MRSA SURVL NARES DNA NEGATIVE NEGATIVE Dec 06, 2021 06:00 [place] URINALYSIS W/REFLEX TO Speci men Type: URINE PM [facility] CULTURE No comment enter ed. Ordering Provid er: JELANI SÁNCHEZ Report Released Date/Time: Dec 06, 2021 11:57 AM Reporting Lab: [place] [facility] [address] [facility] [address] Performing Lab: [place] [facility] [address] [facility] [address] URINE COLOR Arlin YELLOW SPECIFIC GRAVITY 1.029 [...] 21, RIVER VARIANT Comment: https://www.cdc.gov/coronavirus/2019-ncov/cases-updates/variant- surveillance/variant-info.html The [employer] SARS CoV 2 [employer] Assay-GX is a next-generation sequencing (NGS) assa 2021 [facility] SEQUENCING y that determine s the complete genome sequence of the SARS-CoV-2 virus. The assay contains variant-tolerant primers to broaden and improve the coverage for variant detection and increase the sensitivity 12:00 [facility] PNL(WH) of the panel to enable detection from lower viral titer samples. The assay is run on the [employer] Sequencer, which performs automated library preparation, sequencing, analysis, and reporting. PM The sequence an alysis includes determination of viral phylogenetic lineage by comparison to the reference strain Wuhan-Hu-1, GenBank: [id number]. Sequence determination may not be possible owing [...] Dec 06, 2021 01:13 PM Reporting Lab: [facility] [address] [facility] [address] Performing Lab: [facility] [address] [facility] [address] SARS-CoV-2 CLADE() 22C (OMICRON) SARS-CoV-2 LINEAGE() BA.2.12.1 Dec 06, 2021 12:00 [facility] COVID-19 AG SCREEN Specimen Type: NASAL CAVITY PM [facility] PANEL BINAX(405) Comment: Testi ng Performed By: Mike Briscoe Ordering Provid er: JELANI SÁNCHEZ Report Released Date/Time: Dec 08, 2021 08:23 AM Reporting Lab: [facility] [address] [facility] [address] Performing Lab: [facility] [address] [facility] [address] COVID-19 AG SCRN(wrj BINAX) POSITIVE HH NE G Dec 06, 2021 12:00 PM [facility] TROPONIN II Sp ecimen Type: PLASMA Comment: Tests performed on Pham Grinder Set Up Operator Surface (405) SN:[id number] Ordering Provid er: JELANI SÁNCHEZ Report Released Date/Time: Dec 06, 2021 11:57 AM Reporting Lab: [facility] [address] [place] [facility] [place] [address] Performing Lab: [facility] [address] [facility] [address] TROPONIN II 0.03 0.00-0.29 Dec 06, 2021 12:00 PM [facility] LIVER PROFILE Sp ecimen Type: PLASMA Comment: Testin g Performed on Pham Grinder Set Up Operator Surface (405) SN:[id number] Ordering Provid er: JELANI SÁNCHEZ Report Released Date/Time: Dec 06, 2021 11:57 AM Reporting Lab: [facility] [address] [facility] [address] Performing Lab: [facility] [address] [facility] [address] PROTEIN, TOTAL 6.6 6.0-8.5 ALBUMIN 2.8 L 3.2-5.0 BILIRUBIN, TOTAL 0.6 0.2-1.2 ALKALINE PHOSPHATASE 134 40-150 ALT(SGPT) 13 7-52 AST(SGOT) 18 5-34 FIB-4 SCORE 1.94 <2.67 Dec 06, 2021 [facility] P4 GLU,BUN,CREAT,LYTES,CA Speci men Type: PLASMA 12:00 PM [facility] Comment: Testin g Performed on [employer] Set Up Operator Surface (405) SN:[id number] Ordering Provid er: JELANI SÁNCHEZ Report Released Date/Time: Dec 06, 2021 11:57 AM Reporting Lab: [facility] [address] [facility] [address] Performing Lab: [facility] [address] [facility] [address] UREA NITROGEN 13 7-25 SODIUM 138 135-145 POTASSIUM 3.8 3.5-5.0 CHLORIDE 103 100-110 CARBON DIOXIDE 23 20-30 ANION GAP 12 4-16 GLUCOSE 105 H 65-100 CREATININE 0.90 0.5-1.5 CALCIUM 8.7 8.5-10.5 eGFR(CKD-EPI 2020) >90.0 >60 Dec 06, 2021 [facility] COVID-19+FLU/RSV DIAGNOSTIC Spe cimen Type: NASOPHARYNX 12:00 PM [facility] PANEL(405) Comment: Tests performed on [employer] Genexpert (405) Critical results called to and read back by: ALESHIA WILKINSON RN 12/06/21 @ 1312 Ordering Provid er: JELANI SÁNCHEZ Report Released Date/Time: Dec 06, 2021 11:57 AM Reporting Lab: [facility] [address] [facility] [address] Performing Lab: [facility] [address] [place] [facility] [place] [address] FLU A(PCR) NEGATIVE NEGATIVE FLU B(PCR) NEGATIVE NEGATIVE RSV(PCR) NEGATIVE NEGATIVE COVID-19([id number]) DETECTED HH NO T DETECTED Dec 06, 2021 12:00 PM [facility] BNP(P) Sp ecimen Type: PLASMA Comment: Tests performed on [employer] Set Up Operator Surface (405) SN:[id number] Ordering Provid er: JELANI SÁNCHEZ Report Released Date/Time: Dec 06, 2021 11:57 AM Reporting Lab: [facility] [address] [facility] [address] Performing Lab: [facility] [place] [place] [address] [facility] [address] BNP(P) 224.8 H 10-100 Dec 06, 2021 12:00 PM [facility] CBC PROFILE Sp ecimen Type: BLOOD No comment enter ed. Ordering Provid er: JELANI SÁNCHEZ Report Released Date/Time: Dec 06, 2021 11:57 AM Reporting Lab: [facility] [facility] [address] [facility] [address] Performing [facility]: [facility] [address] [facility] [address] WBC 7.2 4.5-11.0 RBC 4.86 4.23-5.66 HGB [...] 2021 07:56 /min mm[Hg] R[facility] PM [facility] Dec 11, 3 WHITE 2021 07:[address] [facility] Dec 11, 98.3 F 98 127/83 18 /min 97 % 0 WHITE 2021 02:50 /min mm[Hg] RIVER PM [facility] Dec 11, 0 WHITE 2021 01:[address] [facility] Dec 11, 0 WHITE 2021 08:49 RIVER AM [facility] Social History: Smoking Status (Most current) [...] Status/Tobacco Use Comment [facility] Apr 01, 2020 01:16 PM QUIT TOBACCO [...] IN PAST YEAR [facility] DOYLE [facility] May 01, 2016 11:19 AM QUIT TOBACCO USE IN PAST YEAR CAREY MONTOYA [facility] Mar 16, 2016 12:50 PM V1-PT DECLINES REF TO TOBACCO [facility] DOYLE [facility] CESS PRGM Mar 16, 2016 12:50 PM V1-PT THINKING ABOUT QUIT [facility] DOYLE [facility] TOBACCO USE Aug 12, 2015 08:48 AM CURRENT SMOKER CARE[facility] Yates [facility] Radiology Reports: +/- 30 days of [...] W/WO CONTRAST: MARYELLEN LONG LUCAS LARES N [id number] -1950 [facility] Exm Date: DEC 13, 2021@12:57 Req Phys: ISATU TODD Loc: OP Unknown/0 12-15-2021@13:20 Img Loc: MRI IMAGING (OOS) Service: ZGENERAL MEDICINE (Case [id number] COMPLETE) MRI ABDOMEN W/WO CONTRAST (M RI Detailed) CPT:57599 Reason for Study: further characterization of a [...] new lyphadenopathy REQUESTING MD: Isatu Todd PAGER: [phone] PHONE: [phone] Weight: 232.2 lb [105.32 kg] (12/12/2021 05:00) [...] 15, 2021 Date Verified: DEC 15, 2021 Wildlife Protector E-Sig:/ES/MARYELLEN LONG Report: MRI ABDOMEN W/WO CONTRAST [...] MALIGNANCY Primary Interpreting Staff: Staff AMELIA THOMAS (Wildlife Protector) / Dec 10, 2021 09:[address] ABDOMEN & PELVIS: [facility] LUCAS [facility]EEK N [id number] -[address] [facility] Exm Date: DEC 10, 2021@09:30 Req Phys: ISATU TODD Loc: 1S MED/12-10@10:57 Img Loc: CT SCAN (OOS) Service: [facility] MEDICINE (Case [id number] COMPLETE) CT ABD & PELVIS WITHOUT CONT RAST (CT Detailed) CPT:77783 Reason for Study: 71 yo male with [...] INDEX - NO HEIGHTS FOUND Pager number: [phone] STAT orders MUST be call ed to RADIOLOGY [phone] to speak to the appropriate prior authorization technician. Report Status: Verified Date Reported: DEC 10, 2021 Date Verified: DEC 10, 2021 Wildlife Protector E-Sig: Report: EXAM: CT abdomen and pelvis [...] ph nodes. READING PHYSICIAN: Ramone Munoz D.O. [phone] 12/10/2021 10:55 EDT [facility] National Teleradiology Program [phone] (For Medical Practitioner Use Only ) [address], [address] [place] [address] Attention Patients / Veterans: If you have ques tions or concerns about these test results, please contact your o rdering provider or primary care team. Primary Diagnostic Code: SIGNIFICANT ABNORMALIT Y, ATTN NEEDED Primary Interpreting Staff: RADIOLOGY,OUTSIDE SERVICE, Staff Physician / Dec 09, 2021 07:34 AM BASW (MODIFIED): JESSIE CHENEY TARA ER JCT LUCAS MEEK [id number] -1950 M [facility] Exm Date: DEC 09, 2021@07:34 Req Phys: ISATU TODD Yao Manjarrez Loc: 1S MED/12-09@11:26 Img Loc: XRAY (OOS) Service: [facility] MEDICINE (Case [id number] COMPLETE) BASW (MODIFIED) (RAD Detaile d) CPT:24626 Contrast Media : Barium Reason for Study: dysphagia ?esophageal spasm Clinical History: Report Status: Verified Date Reported: DEC 09, 2021 Date Verified: DEC 09, 2021 Wildlife Protector E-Sig:/ES/JESSIE CHENEY Report: BASW (MODIFIED) , 12/09/2021 [...] REQUIRED Primary Interpreting Staff: JESSIE CHENEY, RADIOLOGIST (Wildlife Protector) /TLC Dec 06, 2021 12:[address] CHEST (INCLUDES ADRENALS): [facility] [id number] [facility]1950 [address] [facility] Ex[facility] Date: DEC 06, 2021@12:59 Req Phys: GONZALOJELANI Loc: [facility] ED DAYS M 1RD (Req'g Loc) Img Loc: CT SCAN (OOS) Service: Unknown (Case [id number] COMPLETE) CT THORAX W/O CONT (CT Detai led) CPT:73655 Reason for Study: Opacification right chest Clinical History: No contrast allergy BUN: 13 (12/06/21 12:00) CREATI: 0.90 (12/06/21 12:00) eGFR 05/16/21 09:43 52 L Weight: 232.6 lb [105.51 kg] (12/06/2021 11:40) BODY MASS INDEX - NO HEIGHTS FOUND Pager number: [phone] STAT orders MUST be called t o RADIOLOGY [phone] to speak to the appropriate prior authorization technician. Indications - Other: Opacification right chest, covid positive, lung cancer histo Report Status: Verified Date Reported: DEC 06, 2021 Date Verified: DEC 06, 2021 Wildlife Protector E-Sig:/ES/JESSIE CHENEY Report: CT THORAX W/O CONT [...] REQUIRED Primary Interpreting Staff: JESSIE CHENEY, RADIOLOGIST (Wildlife Protector) Primary Interpreting Resident: PRINCE CHAMPION, Resident /BR Dec 06, 2021 11:58 AM CHEST SINGLE VIEW: JESSIE CHENEYT LUCAS MEEK N [id number] -1950 M [facility] Exm Date: DEC 06, 2021@11:58 Req Phys: JELANI SÁNCHEZ Pat Loc: [facility] ED DAYS M 1RD (Req'g Loc) Img Loc: XRAY (OOS) Service: Unknown (Case [id number] COMPLETE) CHEST SINGLE VIEW (RAD Detai led) CPT:38430 Proc Modifiers : PORTABLE EXAM Reason for Study: SOB, home covid test positive Clinical History: Report Status: Verified Date Reported: DEC 06, 2021 Date Verified: DEC 06, 2021 Wildlife Protector E-Sig:/ES/JESSIE CHENEY Report: Exam type: Chest x-ray [...] REQUIRED Primary Interpreting Staff: JESSIE CHENEY, RADIOLOGIST (Wildlife Protector) /TLC Pathology Reports: +/- 30 days of [...] CAREY MONTOYA [facility] [CLIA# [id number]] [address] [place] [address] - - - - - - [...] automatically d ocumented from SURGERY package case #[id number] Field (#32) PRINCIPAL PRE-OP DIAGNOSIS, (#.72) OTHER [...] automatically d ocumented from SURGERY package case #[id number] Field (#34) PRINCIPAL POST-OP DIAG, (#.74) OTHER [...] Label: Lucas Meek Paperwork: Lucas Meek Cassette: [id number];..;KALYANI;.;405;[phone] Specimen is labeled: ES bx Received in formalin are several pieces of pale boyd and brown tissue, 1.2 x 0.7 cm in aggregate. Submitted entirely in 1 cassette [id number];..;KALYANI;.;405;[id number] SAW 12/15/2021 Microscopic exam: *+* MODIFIED REPORT *+* (Last modified: JAN 03, 2022@09:30:20 typed by NIURKA WADDELL) DIAGNOSIS: A. 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 Kendell long. TIARA Coombs was notified on 12/21/21. Modified on 01/03/22 to include report from [facility] stating that tumor is NEGATIVE for her2/ matheus amplification. The attending pathologist who signature mansoor ears on this report has reviewed all diagnostic slides and has edited t he gross and/or microscopic portion of this report in rendering the final pathologic diagnosis. [address] [address] CPT: 34023 /emely/ NIURKA Yeung MD Signed Jan 03, 2022@10:28 Performing Laboratory: Surgical Pathology Report Performed By: CAREY MONTOYA [facility] [CLIA# [id number]] [address] [place] [address] $FTR - - - - - [...] - - LUCAS MEEK STANDARD FORM 515 ID:[id number] SEX:M :1950 AGE: 71 LOC: [facility] END PCP: Isatu Todd /emely/ NIURKA MILLER Staff Signed: 01/03/2022 10:28 Dec 21, 2021 11:46 AM LR SURGICAL PATHOLOGY REPORT: STEFANY MILLER [facility] LOCAL TITLE: LR SURGICAL PATHOLOGY REPORT [facility] STANDARD TITLE: PATHOLOGY REPORT DATE OF NOTE: DEC 21, 2021@11:46:59 ENTRY DATE: DEC 21, 2021@11:46:59 AUTHOR: NIURKA MILLER EXP COSIGNER: URGENCY: STATUS: COMPLETED $APHDR Reporting Lab: [facility] [CLIA# [id number]] [address] [place] [address] - - - - - - [...] automatically d ocumented from SURGERY package case #[id number] Field (#32) PRINCIPAL PRE-OP DIAGNOSIS, (#.72) OTHER [...] automatically d ocumented from SURGERY package case #[id number] Field (#34) PRINCIPAL POST-OP DIAG, (#.74) OTHER [...] Label: Lucas Meek Paperwork: Lucas Meek Cassette: [id number];..;KALYANI;.;405;[id number] Specimen is labeled: ES bx Received in formalin are several pieces of pale boyd and brown tissue, 1.2 x 0.7 cm in aggregate. Submitted entirely in 1 cassette [id number];..;KALYANI;.;405;[id number] SAW 12/15/2021 Microscopic exam: DIAGNOSIS: A. 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 Kendell long. TIARA Coombs was notified on 12/21/21. The attending pathologist who signature mansoor ears on this report has reviewed all diagnostic slides and has edited t he gross and/or microscopic portion of this report in rendering the final pathologic diagnosis. [address] [address] CPT: 80450 /emely/ NIURKA Yeung MD Signed Dec 21, 2021@11:46 Performing Laboratory: Surgical Pathology Report Performed By: [facility] [CLIA# [id number]] [address] [place] [address] $FTR - - - - - [...] - - LUCAS MEEK STANDARD FORM 515 ID:[id number] SEX:M :1950 AGE: 71 LOC: [facility] END PCP: Isatu Todd /charmaine Yeung MD Signed: 12/21/2021 11:46 Dec 06, 2021 03:30 PM LR MICROBIOLOGY REPORT: [facility] Reporting Lab: [facility] [CLIA# [id number]] [address] [place] [address] Accession [UID]: [id number] [[id number]] Receiv ed: Dec 06, 2021@16:14 Collection sample: BLOOD CUL T BOTTLE(NIRMAL/AERO)Collection date: Dec 06, 2021 15:30 Site/Specimen: BLOOD Provider: JELANI SÁNCHEZ Comment on specimen: LAC Test(s) ordered: BLOOD CULTURE ANAEROBI C....... completed: Dec 12, 2021 06:18 * BACTERIOLOGY FINAL REPORT => Dec 12, 2021 06:1 8 TECH CODE: 21539 Bacteriology Remark(s): NO GROWTH IN 5 DAYS =--=--=--=--=--=--=--=--=--=--=--=--=--= --=--=--=--=--=--=--=--=--=--=--=--=-- Performing Laboratory: Bacteriology Report Performed By: [facility] [CLIA# [id number]] [address] [place] [address] Dec 06, 2021 03:30 PM LR MICROBIOLOGY REPORT: [facility] Reporting Lab: [facility] [CLIA# [id number]] [address] [place] [address] Accession [UID]: [id number] [[id number]] Receiv ed: Dec 06, 2021@16:14 Collection sample: BLOOD CUL T BOTTLE(NIRMAL/AERO)Collection date: Dec 06, 2021 15:30 Site/Specimen: BLOOD Provider: JELANI SÁNCHEZ Comment on specimen: LAC Test(s) ordered: BLOOD CULTURE AEROBIC. ........ completed: Dec 12, 2021 06:17 * BACTERIOLOGY FINAL REPORT => Dec 12, 2021 06:1 7 TECH CODE: [id number] Bacteriology Remark(s): NO GROWTH IN 5 DAYS =--=--=--=--=--=--=--=--=--=--=--=--=--= --=--=--=--=--=--=--=--=--=--=--=--=-- Performing Laboratory: Bacteriology Report Performed By: [facility] [CLIA# [id number]] [address] [place] [address]
--- OUTSIDE RECORDS SUMMARY | 2022-01-19 09:09 | XMS_ITS ---
DAILY HOSPITALIZATION DATA [facility] Encounter Summary Created on:December 11, 2021 Patient:LUCAS MEEK Sex:Male :1950 Author Organization [facility] Address [address] [place] [address] Support Name Relationship Address Phone YUSRA MEEK Unavailable [address] [place] [address] YUSRA MEEK Unavailable [address] [place] [facility] [place] [address] CLAY MOSLEY Unavailable Unavailable SJ SANTACRUZ Unavailable [...] MEDICARE MEDICARE PART Jun 18, PART A [id number] DO KALYANI PATIENT (WNR) (M) A 2016 13A 1 UGLAS MEDICARE MEDICARE PART Jun 18, PART B [id number] DO KALYANI PATIENT (WNR) (M) B 2016 13A 1 [place]AS MEDICARE MEDICARE PART Jun 18, PART A [id number] KALYANIDO PATIENT (WNR) (M) A 2017 VH81 2 [place]AS MEDICARE MEDICARE PART Jun 18, PART B [id number] DO KALYANI PATIENT (WNR) (M) B 2017 VH81 2 [place] UNITED MEDICARE MCR(Jun 18 [id number] Luz MEEK PATIENT HEALTHCARE ADVANTAGE NR) 2021 37 0 [facility] (WNR) Selected Encounter This section includes the information on record at [facility] for the Encounter. Date/Time Encounter Type Encounter Description Reason Provider Source Dec 11, 2021 05:55 Inpatient Visit DAILY HOSPITALIZATION DATA AM [facility] Encounter Template Text not used by [place] [...] [place] [facility] Jan 06, 2022 02:00 PM [place] [facility] Jan 10, 2022 11:30 AM [facility]ULATORY - MEDICINE [facility] Jan 24, 2022 08:00 AM [place] [facility] Feb 21, 2022 10:00 AM [place] [facility] Mar 21, [...] The data comes from all [place] treatment [facility]. Test Date/Time Test Type Test Details Facility Name October 31, 2021 07:37 AM Consult Order [facility]UNITY CARE-EGD [facility] Cons Shell [employer] Operator's Choice November 15, 2021 10:37 AM Consult Order [facility] CARE-PODIATRY Cons [employer] Operator's Choice Dec 06, 2021 12:52 PM [...] [place] OUTPATIENT Cons [facility] Shell Machine Operator's Choice Jan 15, 2022 10:08 PM Consult Order [facility] CARE-PALLIATIVE CARE Cons Shell Machine Operator's Choice Lab Results: +/- 30 days [...] Reference Range Comment Dec 15, 2021 [place] P4 GLU,BUN,CREAT,LYTES,CA Speci men Type: PLASMA 06:43 AM [facility] Comment: Tests performed on Secure Software (405) SN:[id number] Ordering Provid er: ISATU TODD Report Released Date/Time: Dec 11, 2021 07:42 AM Reporting Lab: [facility] [address] [facility] [address] Performing Lab: [facility] [address] [facility] [address] UREA NITROGEN 9 7-25 SODIUM 137 135-145 [...] T [facility] [address] [facility] [address] Performing Lab: [facility] [address] [facility] [address] WBC 5.7 4.5-11.0 RBC 4.22 L 4.23-5.66 [...] CYTOGENETIC Specimen Type: ESOPHAGUS 02:59 PM VAOC FISH([facility] Comment: ~For T est: CYTOGENETIC FISH([facility]) ~FISH HER 2 NUE, FFPE See full report in YesVideo Image display viewer/tab#LAB-Reference Ordering Provid er: NIURKA MILLER Report Released Date/Time: Dec 21, 2021 12:11 PM Reporting Lab: [facility] [address] [facility] [address] Performing Lab: [facility] CYTOGENETIC FISH([facility]) comment Dec 14, 2021 [facility] P4 GLU,BUN,CREAT,LYTES,CA Speci men Type: PLASMA 06:27 AM [facility] Comment: Tests performed on Secure Software (405) SN:[id number] Ordering Provid er: ISATU TODD Report Released Date/Time: Dec 11, 2021 07:42 AM Reporting Lab: [facility] [address] [facility] [address] Performing Lab: [facility] [address] [facility] [address] UREA NITROGEN 10 7-25 SODIUM 137 135-145 [...] 10, 2021 07:22 AM Reporting Lab: [facility] [address] [facility] [address] Performing Lab: [facility] [address] [facility] [address] WBC 6.0 4.5-11.0 RBC 4.29 4.23-5.66 HGB [...] 0.00 0-0 Dec 13, 2021 06:34 AM [facility] CBC PROFILE Sp ecimen Type: BLOOD No comment enter ed. Ordering Provid er: ISATU TODD Report Released Date/Time: Dec 10, 2021 07:22 AM Reporting Lab: [facility] [address] [facility] [address] Performing Lab: [facility] [address] [facility] [address] WBC 5.6 4.5-11.0 RBC 4.28 4.23-5.66 HGB [...] [facility] Comment: Tests performed on Secure Software (405) SN:[id number] Ordering Provid er: ISATU TODD Report Released Date/Time: Dec 11, 2021 07:42 AM Reporting Lab: [facility] [address] [facility] [address] Performing Lab: [facility] [address] [facility] [address] UREA NITROGEN 12 7-25 SODIUM 136 135-145 POTASSIUM 3.9 3.5-5.0 CHLORIDE 105 100-110 CARBON DIOXIDE 24 20-30 ANION GAP 7 4-16 GLUCOSE 102 H 65-100 CREATININE 0.66 0.5-1.5 CALCIUM 8.3 L 8.5-10.5 eGFR(CKD-EPI 2020) >90.0 >60 Dec 12, 2021 [facility] GLU,BUN,CREAT,LYTES,CA Speci men Type: PLASMA 06:21 AM [facility] Comment: Tests performed on Secure Software (405) SN:[id number] Ordering Provid er: ISATU TODD Report Released Date/Time: Dec 11, 2021 07:42 AM Reporting Lab: [facility] [address] [facility] [address] Performing Lab: [facility] [address] [facility] [address] UREA NITROGEN 11 7-25 SODIUM 139 135-145 POTASSIUM 4.1 3.5-5.0 CHLORIDE 107 100-110 CARBON DIOXIDE 24 20-30 ANION GAP 8 4-16 GLUCOSE 110 H 65-100 CREATININE 0.70 0.5-1.5 CALCIUM 8.3 L 8.5-10.5 eGFR(CKD-EPI 2020) >90.0 >60 Dec 12, 2021 06:21 AM [facility] CBC PROFILE Sp ecimen Type: BLOOD No comment enter ed. Ordering Provid er: ISATU TODD Report Released Date/Time: Dec 10, 2021 07:22 AM Reporting Lab: [facility] [address] [facility] [address] Performing Lab: [facility] [address] [facility] [address] WBC 5.5 4.5-11.0 RBC 4.37 4.23-5.66 HGB [...] 0.00 0-0 Dec 12, 2021 06:00 AM [facility] MAGNESIUM Sp ecimen Type: PLASMA Comment: Testin g Performed on Secure Software (405) SN:[id number] Ordering Provid er: ISATU TODD Report Released Date/Time: Dec 12, 2021 08:24 AM Reporting Lab: [place] [employer] [facility] [address] [facility] [address] Performing Lab: [employer] [place] [employer]T [employer] [address] [facility] [address] MAGNESIUM 1.8 1.6-2.6 Dec 12, 2021 06:00 AM [employer]OC PHOSPHORUS Sp ecimen Type: PLASMA Comment: Testin g Performed on Secure Software (405) SN:[id number] Ordering Provid er: ISATU TODD Report Released Date/Time: Dec 12, 2021 08:24 AM Reporting Lab: [place] [employer]T [facility] [address] [facility] [address] Performing Lab: [place] [employer] [address] [facility] [address] PHOSPHORUS 3.1 2.5-5.0 Dec 11, 2021 06:15 AM [employer] [place] [employer]MROC ELECTROLYTES Sp ecimen Type: PLASMA Comment: Tests performed on Secure Software (405) SN:[id number] Ordering Provid er: ISATU TODD Report Released Date/Time: Dec 10, 2021 07:22 AM Reporting Lab: [place] [employer] [address] [facility] [address] Performing Lab: [place] [employer] [address] [facility] [address] SODIUM 137 135-145 POTASSIUM 4.3 3.5-5.0 CHLORIDE 108 100-110 CARBON DIOXIDE 20 20-30 ANION GAP 9 4-16 Dec 11, 2021 06:15 AM [place] [employer] [facility] CBC PROFILE Sp ecimen Type: BLOOD Comment: Result s checked Ordering Provid er: ISATU TODD Report Released Date/Time: Dec 10, 2021 07:22 AM Reporting Lab: [place] [employer] [facility] [address] [facility] [address] Performing Lab: [place] O[facility] [facility] [address] [facility] [address] WBC 5.8 4.5-11.0 RBC 4.37 4.23-5.66 HGB [...] 0.00 0-0 Dec 11, 2021 06:00 AM [facility] PHOSPHORUS Sp ecimen Type: PLASMA Comment: Tests performed on Secure Software (995) SN:[id number] Results checked Ordering Provid er: ISATU TODD Report Released Date/Time: Dec 11, 2021 07:44 AM Reporting Lab: [facility] DFUFT [facility] [address] [facility] [address] Performing Lab: [place] [facility] [facility] [address] [facility] [address] PHOSPHORUS 3.0 2.5-5.0 Dec 10, 2021 08:05 AM [place] [facility] MAGNESIUM Sp ecimen Type: PLASMA Comment: [place] [id number] on Dec 10, 2021@08:31 Tests performed on Secure Software (405) SN:[id number] Ordering Provid er: ISATU TODD Report Released Date/Time: Dec 10, 2021 07:22 AM Reporting Lab: [place] [facility] [address] [place] [facility] [place] [address] Performing Lab: [place] [facility] [address] [place] [facility] [place] [address] MAGNESIUM 1.7 1.6-2.6 Dec 10, 2021 08:05 AM [place] [facility] PHOSPHORUS Sp ecimen Type: PLASMA Comment: [place] [id number] on Dec 10, 2021@08:31 Tests performed on Secure Software (405) SN:[id number] Ordering Provid er: ISATU TODD Report Released Date/Time: Dec 10, 2021 07:22 AM Reporting Lab: [place] [facility] [address] [place] [facility] [place] [address] Performing Lab: [place] [facility] [address] [place] [facility] [place] [address] PHOSPHORUS 1.8 L 2.5-5.0 Dec 10, 2021 08:05 AM [place] UREA NITROGEN Specimen Type: PLASMA [facility] Comment: [place] [id number] on Dec 10, 2021@08:31 Tests performed on Secure Software (405) SN:[id number] Ordering Provid er: ISATU TODD Report Released Date/Time: Dec 10, 2021 07:22 AM Reporting Lab: [place] [facility] [address] [place] [facility] [place] [address] Performing Lab: [place] [facility] [address] [place] [facility] [place] [address] UREA NITROGEN 8 7-25 Dec 10, 2021 08:05 AM [place] [facility] GLUCOSE Sp ecimen Type: PLASMA Comment: [place] [id number] on Dec 10, 2021@08:31 Tests performed on Secure Software (405) SN:[id number] Ordering Provid er: ISATU TODD Report Released Date/Time: Dec 10, 2021 07:22 AM Reporting Lab: [place] [facility] [address] [facility] [address] Performing Lab: [place] [facility] [address] [facility] [address] GLUCOSE 144 H 65-100 Dec 10, 2021 08:05 AM [place] [facility] CALCIUM Sp ecimen Type: PLASMA Comment: [place] [id number] on Dec 10, 2021@08:31 Tests performed on Secure Software (405) SN:[id number] Ordering Provid er: ISATU TODD Report Released Date/Time: Dec 10, 2021 07:22 AM Reporting Lab: [place] [facility] [address] [facility] [address] Performing Lab: [place] [facility] [address] [facility] [address] CALCIUM 8.3 L 8.5-10.5 Dec 10, 2021 08:05 AM [place] [facility] ELECTROLYTES Sp ecimen Type: PLASMA Comment: [place] [id number] on Dec 10, 2021@08:31 Tests performed on Pham Graffle (405) SN:[id number] Ordering Provid er: ISATU TODD Report Released Date/Time: Dec 10, 2021 07:22 AM Reporting Lab: [place] [facility] [address] [facility] [address] Performing Lab: [place] [facility] [address] [facility] [address] SODIUM 139 135-145 POTASSIUM 3.7 3.5-5.0 CHLORIDE 107 100-110 CARBON DIOXIDE 24 20-30 ANION GAP 8 4-16 Dec 10, 2021 08:05 [place] CREATININE WITH eGFR Specime n Type: PLASMA AM [facility] PANEL Comment: [place] [id number] on Dec 10, 2021@08:31 Tests performed on Secure Software (405) SN:[id number] Ordering Provid er: ISATU TODD Report Released Date/Time: Dec 10, 2021 07:22 AM Reporting Lab: [place] [facility] [address] [facility] [address] Performing Lab: [place] [facility] [address] [facility] [address] CREATININE 0.78 0.5-1.5 eGFR(CKD-EPI 2020) >90.0 >60 Dec 10, 2021 08:05 AM [facility] CBC PROFILE Sp ecimen Type: BLOOD No comment enter ed. Ordering Provid er: ISATU TODD Report Released Date/Time: Dec 10, 2021 07:22 AM Reporting Lab: [place] [employer] [facility] [address] [facility] [address] Performing Lab: [place] [facility] [facility] [address] [facility] [address] WBC 7.0 4.5-11.0 RBC 4.54 4.23-5.66 HGB [...] 0.00 0-0 Dec 09, 2021 06:46 AM [facility] MAGNESIUM Sp ecimen Type: PLASMA Comment: Tests performed on Secure Software (428) SN:[id number] Ordering Provid er: ISATU TODD Report Released Date/Time: Dec 08, 2021 10:23 AM Reporting Lab: [facility] [address] [facility] [address] Performing Lab: [facility] [address] [facility] [address] MAGNESIUM 1.6 1.6-2.6 Dec 09, 2021 [facility] P4 GLU,BUN,CREAT,LYTES,CA Speci men Type: PLASMA 06:46 AM [facility] Comment: Tests performed on Secure Software (405) SN:[id number] Ordering Provid er: ISATU TODD Report Released Date/Time: Dec 08, 2021 05:00 PM Reporting Lab: [facility] [address] [facility] [address] Performing Lab: [facility] [address] [facility] [address] UREA NITROGEN 6 L 7-25 SODIUM 134 [...] PM Reporting Lab: [facility] [address] [facility] [address] Performing Lab: [facility] [address] [facility] [address] WBC 7.1 4.5-11.0 RBC 4.40 4.23-5.66 HGB [...] 0-0 Dec 08, 2021 06:39 AM [facility] MAGNESIUM Sp ecimen Type: PLASMA Comment: Testin g Performed on Secure Software (405) SN:[id number] Ordering Provid er: ISATU TODD Report Released Date/Time: Dec 07, 2021 10:32 AM Reporting Lab: [facility] [address] [facility] [address] Performing Lab: [facility] [address] [facility] [address] MAGNESIUM 1.5 L 1.6-2.6 Dec 08, 2021 06:39 AM [facility] CBC PROFILE Sp ecimen Type: BLOOD No comment enter ed. Ordering Provid er: ISATU TODD Report Released Date/Time: Dec 07, 2021 10:32 AM Reporting Lab: [facility] [address] [facility] [address] Performing Lab: [facility] [address] [facility] [address] WBC 8.4 4.5-11.0 RBC 4.75 4.23-5.66 HGB [...] ABSOLUTE NRBC 0.00 0-0 Dec 08, 2021 [facility] P4 GLU,BUN,CREAT,LYTES,CA Speci men Type: PLASMA 06:39 AM [facility] Comment: Testin g Performed on Pham Graffle (405) SN:[id number] Ordering Provid er: ISATU TODD Report Released Date/Time: Dec 07, 2021 10:32 AM Reporting Lab: [facility] [address] [facility] [address] Performing Lab: [facility] [address] [facility] [address] UREA NITROGEN 6 L 7-25 SODIUM 136 135-145 POTASSIUM 3.3 L 3.5-5.0 CHLORIDE 104 100-110 CARBON DIOXIDE 22 20-30 ANION GAP 10 4-16 GLUCOSE 133 H 65-100 CREATININE 0.76 0.5-1.5 CALCIUM 8.4 L 8.5-10.5 eGFR(CKD-EPI 2020) >90.0 >60 Dec 07, 2021 [facility] P4 GLU,BUN,CREAT,LYTES,CA Speci men Type: PLASMA 06:42 AM [facility] Comment: Tests performed on Pham Graffle (405) SN:[id number] Ordering Provid er: PORFIRIO WALTERS Report Released Date/Time: Dec 06, 2021 06:57 PM Reporting Lab: [place] [employer] [facility] [address] [facility] [address] Performing Lab: [facility] [address] [facility] [address] UREA NITROGEN 9 7-25 SODIUM 135 135-145 POTASSIUM 3.5 3.5-5.0 CHLORIDE 103 100-110 CARBON DIOXIDE 22 20-30 ANION GAP 10 4-16 GLUCOSE 92 65-100 CREATININE 0.73 0.5-1.5 CALCIUM 8.0 L 8.5-10.5 eGFR(CKD-EPI 2020) >90.0 >60 Dec 07, 2021 06:42 [place] LIVER PROFILE Specimen Typ e: PLASMA AM [facility] Comment: Tests performed on Infinite Z Delinquent Tax Collector (405) SN:[id number] Ordering Provid er: PORFIRIO WALTERS Report Released Date/Time: Dec 06, 2021 06:57 PM Reporting Lab: [facility] [address] [facility] [address] Performing Lab: [facility] [address] [facility] [address] PROTEIN, TOTAL 5.7 L 6.0-8.5 ALBUMIN 2.4 L 3.2-5.0 BILIRUBIN, TOTAL 0.4 0.2-1.2 ALKALINE PHOSPHATASE 109 40-150 ALT(SGPT) 10 7-52 AST(SGOT) 15 5-34 FIB-4 SCORE 1.92 <2.67 Dec 07, 2021 06:42 AM [facility] CBC PROFILE Specimen Type: BLOOD [facility] No comment enter ed. Ordering Provid er: PORFIRIO WALTERS Report Released Date/Time: Dec 06, 2021 06:57 PM Reporting Lab: [facility] [address] [facility] [address] Performing Lab: [facility] [address] [facility] [address] WBC 5.7 4.5-11.0 RBC 4.15 L 4.23-5.66 [...] [facility] %) AUTOMATED Comment: Tests performed on Secure Software (405) SN:[id number] Ordering Provid er: ISATU TODD Report Released Date/Time: Dec 07, 2021 10:28 AM Reporting Lab: [place] [facility] [address] [facility] [address] Performing Lab: [place] [facility] [address] [facility] [address] RETICULOCYTES (%) AUTOMATED 1.23 0. 6-2.0 RETICULOCYTES (ABS) AUTOMATED 0.052 0.030-0.090 Dec 06, 2021 09:45 [place] MRSA SURVL NARES Specimen Ty pe: NARES PM [facility] DNA No comment enter ed. Ordering Provid er: ALVARO VARGHESE Report Released Date/Time: Dec 07, 2021 02:20 AM Reporting Lab: [place] [facility] [address] [facility] [address] Performing Lab: [place] [facility] [address] [facility] [address] MRSA SURVL NARES DNA NEGATIVE NEGATIVE Dec 06, 2021 06:00 [place] URINALYSIS W/REFLEX TO Speci men Type: URINE PM [facility] CULTURE No comment enter ed. Ordering Provid er: JELANI SÁNCHEZ Report Released Date/Time: Dec 06, 2021 11:57 AM Reporting Lab: [place] [facility] [address] [facility] [address] Performing Lab: [place] [facility] [address] [facility] [address] URINE COLOR Arlin YELLOW SPECIFIC GRAVITY 1.029 [...] 21, R[place] VARIANT Comment: https://www.cdc.gov/coronavirus/2019-ncov/cases-updates/variant- surveillance/variant-info.html The Countdown SARS CoV 2 [employer] Assay-GX is a next-generation sequencing (NGS) assa 2021 [facility] SEQUENCING y that determine s the complete genome sequence of the SARS-CoV-2 virus. The assay contains variant-tolerant primers to broaden and improve the coverage for variant detection and increase the sensitivity 12:00 [facility] PNL(WH) of the panel to enable detection from lower viral titer samples. The assay is run on the coJuvo Sequencer, which performs automated library preparation, sequencing, analysis, and reporting. PM The sequence an alysis includes determination of viral phylogenetic lineage by comparison to the reference strain Wuhan-Hu-1, GenBank: [id number]. Sequence determination may not be possible owing [...] Dec 06, 2021 01:13 PM Reporting Lab: [facility] [address] [facility] [address] Performing Lab: [facility] [address] [facility] [address] SARS-CoV-2 CLADE() 22C (OMICRON) SARS-CoV-2 LINEAGE() BA.2.12.1 Dec 06, 2021 12:00 [facility] COVID-19 AG SCREEN Specimen Type: NASAL CAVITY PM [facility] PANEL BINAX(405) Comment: Testi ng Performed By: Mike Briscoe Ordering Provid er: JELANI SÁNCHEZ Report Released Date/Time: Dec 08, 2021 08:23 AM Reporting Lab: [facility] [address] [facility] [address] Performing Lab: [facility] [address] [facility] [address] COVID-19 AG SCRN(wrj BINAX) POSITIVE HH NE G Dec 06, 2021 12:00 PM [facility] TROPONIN II Sp ecimen Type: PLASMA Comment: Tests performed on Pham Delinquent Tax Collector (405) SN:[id number] Ordering Provid er: JELANI SÁNCHEZ Report Released Date/Time: Dec 06, 2021 11:57 AM Reporting Lab: [facility] [address] [facility] [address] Performing Lab: [facility] [address] [facility] [address] TROPONIN II 0.03 0.00-0.29 Dec 06, 2021 [place] P4 GLU,BUN,CREAT,LYTES,CA Speci men Type: PLASMA 12:00 PM [facility] Comment: Testin g Performed on Pham Delinquent Tax Collector (405) SN:[id number] Ordering Provid er: JELANI SÁNCHEZ Report Released Date/Time: Dec 06, 2021 11:57 AM Reporting Lab: [place] [facility] [address] [facility] [address] Performing Lab: [place] [facility] [address] [facility] [address] UREA NITROGEN 13 7-25 SODIUM 138 135-145 POTASSIUM 3.8 3.5-5.0 CHLORIDE 103 100-110 CARBON DIOXIDE 23 20-30 ANION GAP 12 4-16 GLUCOSE 105 H 65-100 CREATININE 0.90 0.5-1.5 CALCIUM 8.7 8.5-10.5 eGFR(CKD-EPI 2020) >90.0 >60 Dec 06, 2021 12:00 PM [facility] LIVER PROFILE Sp ecimen Type: PLASMA Comment: Testin g Performed on Pham Delinquent Tax Collector (405) SN:[id number] Ordering Provid er: JELANI SÁNCHEZ Report Released Date/Time: Dec 06, 2021 11:57 AM Reporting Lab: [facility] [address] [facility] [address] Performing Lab: [facility] [address] [facility] [address] PROTEIN, TOTAL 6.6 6.0-8.5 ALBUMIN 2.8 L 3.2-5.0 BILIRUBIN, TOTAL 0.6 0.2-1.2 ALKALINE PHOSPHATASE 134 40-150 ALT(SGPT) 13 7-52 AST(SGOT) 18 5-34 FIB-4 SCORE 1.94 <2.67 Dec 06, 2021 [facility] COVID-19+FLU/RSV DIAGNOSTIC Spe cimen Type: NASOPHARYNX 12:00 PM [facility] PANEL(405) Comment: Tests performed on Rezolve Genexpert (405) Critical results called to and read back by: ALESHIA WILKINSON RN 12/06/21 @ 1312 Ordering Provid er: JELANI SÁNCHEZ Report Released Date/Time: Dec 06, 2021 11:57 AM Reporting Lab: [facility] [address] [facility] [address] Performing Lab: [facility] [address] [facility] [address] FLU A(PCR) NEGATIVE NEGATIVE FLU B(PCR) NEGATIVE NEGATIVE RSV(PCR) NEGATIVE NEGATIVE COVID-19([id number]) DETECTED HH NO T DETECTED Dec 06, 2021 12:00 PM [facility] BNP(P) Sp ecimen Type: PLASMA Comment: Tests performed on [employer] (405) [id number] Ordering Provid er: JELNAI SÁNCHEZ Report Released Date/Time: Dec 06, 2021 11:57 AM Reporting Lab: [facility] [address] [facility] [address] Performing Lab: [facility] [address] [facility] [address] BNP(P) 224.8 H 10-100 Dec 06, 2021 12:00 PM [facility] CBC PROFILE Sp ecimen Type: BLOOD No comment enter ed. Ordering Provid er: JELANI SÁNCHEZ Report Released Date/Time: Dec 06, 2021 11:57 AM Reporting Lab: [facility] [address] [facility] [address] Performing Lab[facility] [address] [facility] [address] WBC 7.2 4.5-11.0 RBC 4.86 4.23-5.66 HGB [...] 2021 07:56 /min mm[Hg] [facility] Dec 11, 3 WHITE 2021 07:49 [facility] PM [facility] Dec 11, 98.3 F 98 127/83 18 /min 97 % 0 WHITE 2021 02:50 /min mm[Hg] [facility] PM [facility] Dec 11, 0 WHITE 2021 01:57 R[facility] PM [facility] Dec 11, 0 WHITE 2021 08:49 R[facility] AM [facility] Social History: [...] took place. Date/Time Smoking Status/Tobacco Use Comment [facility] Apr 01, 2020 01:16 PM [...] PAST YEAR [facility] May 01, 2016 11:19 AM QUIT TOBACCO USE IN PAST YEAR [facility] Mar 16, 2016 12:50 [...] W/WO CONTRAST: MARYELLEN LONG LUCAS LARES N [id number] -1950 [facility] Exm Date: DEC 13, 2021@12:57 Req Phys: ISATU TODD Loc: OP Unknown/0 12-15-2021@13:20 Img Loc: MRI IMAGING (OOS) Service: ZGENERAL MEDICINE (Case [id number] COMPLETE) MRI ABDOMEN W/WO CONTRAST (M RI Detailed) CPT:64461 Reason for Study: further characterization of a [...] new lyphadenopathy REQUESTING MD: Isatu Todd PAGER: [phone] PHONE: [phone] Weight: 232.2 lb [105.32 kg] (12/12/2021 05:00) [...] will need to arrange for a driver starting gate to take him/her home after the MRI [...] 15, 2021 Date Verified: DEC 15, 2021 Mica Washer Gluer E-Sig:/ES/MARYELLEN LONG Report: MRI ABDOMEN W/WO CONTRAST [...] MALIGNANCY Primary Interpreting Staff: Staff AMELIA THOMAS (Mica Washer Gluer) / Dec 10, 2021 09:[address] ABDOMEN & PELVIS: [facility] N [id number] -1950 M [facility] Exm Date: DEC 10, 2021@09:30 Req Phys: ISATU TODD Loc: 1S MED/12-10@10:57 Img Loc: CT SCAN (OOS) Service: [facility] MEDICINE (Case [id number] COMPLETE) CT ABD & PELVIS WITHOUT CONT RAST (CT Detailed) CPT:44089 Reason for Study: 71 yo male with [...] INDEX - NO HEIGHTS FOUND Pager number: [phone] STAT orders MUST be call ed to RADIOLOGY [phone] to speak to the appropriate transportation planning technician. Report Status: Verified Date Reported: DEC 10, 2021 Date Verified: DEC 10, 2021 Mica Washer Gluer E-Sig: Report: EXAM: CT abdomen and pelvis [...] ph nodes. READING PHYSICIAN: Ramone Munoz D.O. [phone] 12/10/2021 10:55 EDT [facility] National Teleradiology Program [phone] (For Medical Practitioner Use Only ) [address] [facility], [facility] [address] [place] [address] Attention Patients / Veterans: If you have ques tions or concerns about these test results, please contact your o rdering provider or primary care team. Primary Diagnostic Code: SIGNIFICANT ABNORMALIT Y, ATTN NEEDED Primary Interpreting Staff: RADIOLOGY,OUTSIDE SERVICE, Staff Physician / Dec 09, 2021 07:34 AM BASW (MODIFIED): JESSIE CHENEY TARA ER JCT LUCAS MEEK [id number] -1950 M [facility] Exm Date: DEC 09, 2021@07:34 Req Phys: ISATU TODD Yao Manjarrez Loc: 1S MED/12-09@11:26 Img Loc: XRAY (OOS) Service: [facility] MEDICINE (Case [id number] COMPLETE) BASW (MODIFIED) (RAD Detaile d) CPT:31418 Contrast Media : Barium Reason for Study: dysphagia ?esophageal spasm Clinical History: Report Status: Verified Date Reported: DEC 09, 2021 Date Verified: DEC 09, 2021 Mica Washer Gluer E-Sig:/ES/JESSIE CHENEY Report: BASW (MODIFIED) , 12/09/2021 [...] REQUIRED Primary Interpreting Staff: JESSIE CHENEY, RADIOLOGIST (Mica Washer Gluer) /TLC Dec 06, 2021 12:[address] CHEST (INCLUDES ADRENALS): [facility] [id number] -1950 [facility] Exm Date: DEC 06, 2021@12:59 Req Phys: GONZALOJELANI Loc: [facility] ED DAYS M 1RD (Req'g Loc) Img Loc: CT SCAN (OOS) Service: Unknown (Case [id number] COMPLETE) CT THORAX W/O CONT (CT Detai led) CPT:78930 Reason for Study: Opacification right chest Clinical History: No contrast allergy BUN: 13 (12/06/21 12:00) CREATI: 0.90 (12/06/21 12:00) eGFR 05/16/21 09:43 52 L Weight: 232.6 lb [105.51 kg] (12/06/2021 11:40) BODY MASS INDEX - NO HEIGHTS FOUND Pager number: [phone] STAT orders MUST be called t o RADIOLOGY [phone] to speak to the appropriate transportation planning technician. Indications - Other: Opacification right chest, covid positive, lung cancer histo Report Status: Verified Date Reported: DEC 06, 2021 Date Verified: DEC 06, 2021 Mica Washer Gluer E-Sig:/ES/JESSIE CHENEY Report: CT THORAX W/O CONT [...] REQUIRED Primary Interpreting Staff: JESSIE CHENEY, RADIOLOGIST (Mica Washer Gluer) Primary Interpreting Resident: PRINCE CHAMPION, Resident /BR Dec 06, 2021 11:58 AM CHEST SINGLE VIEW: JESSIE CHENEYT LUCAS MEEK N [id number] -1950 [facility] Exm Date: DEC 06, 2021@11:58 Req Phys: JELANI SÁNCHEZ Pat Loc: [facility] ED DAYS M 1RD (Req'g Loc) Img Loc: XRAY (OOS) Service: Unknown (Case [id number] COMPLETE) CHEST SINGLE VIEW (RAD Detai led) CPT:34438 Proc Modifiers : PORTABLE EXAM Reason for Study: SOB, home covid test positive Clinical History: Report Status: Verified Date Reported: DEC 06, 2021 Date Verified: DEC 06, 2021 Mica Washer Gluer E-Sig:/ES/JESSIE CHENEY Report: Exam type: Chest x-ray [...] REQUIRED Primary Interpreting Staff: JESSIE CHENEY, RADIOLOGIST (Mica Washer Gluer) /TLC Pathology Reports: +/- 30 days of [...] Lab: [facility] [CLIA# [id number]] [address] [place] [address] - - - - - - [...] automatically d ocumented from SURGERY package case #[id number] Field (#32) PRINCIPAL PRE-OP DIAGNOSIS, (#.72) OTHER [...] automatically d ocumented from SURGERY package case #[id number] Field (#34) PRINCIPAL POST-OP DIAG, (#.74) OTHER [...] Label: Lucas Meek Paperwork: Lucas Meek Cassette: [id number];..;KALYANI;.;405;[id number] Specimen is labeled: ES bx Received in formalin are several pieces of pale boyd and brown tissue, 1.2 x 0.7 cm in aggregate. Submitted entirely in 1 cassette [id number];..;KALYANI;.;405;[id number] SAW 12/15/2021 Microscopic exam: *+* MODIFIED REPORT [...] report in rendering the final pathologic diagnosis. [address] [address] CPT: 79964 /emely/ NIURKA Yeung MD Signed Jan 03, 2022@10:28 Performing Laboratory: Surgical Pathology Report Performed By: [facility] [CLIA# [id number]] [address] [place] [id number] $FTR - - - - - [...] - - LUCAS MEEK STANDARD FORM 515 ID:[id number] SEX:M :1950 AGE: 71 LOC: SDM END PCP: Isatu Todd /emely/ NIURKA MILLER Staff Signed: 01/03/2022 10:28 Dec 21, 2021 11:46 AM LR SURGICAL PATHOLOGY REPORT: STEFANY MILLER [facility] LOCAL TITLE: LR SURGICAL PATHOLOGY REPORT [facility] STANDARD TITLE: PATHOLOGY REPORT DATE OF NOTE: DEC 21, 2021@11:46:59 ENTRY DATE: DEC 21, 2021@11:46:59 AUTHOR: NIURKA MILLER EXP COSIGNER: URGENCY: STATUS: COMPLETED $APHDR Reporting Lab: [facility] [CLIA# [id number]] [address] [place] [address] - - - - - - [...] automatically d ocumented from SURGERY package case #[id number] Field (#32) PRINCIPAL PRE-OP DIAGNOSIS, (#.72) OTHER [...] automatically d ocumented from SURGERY package case #[id number] Field (#34) PRINCIPAL POST-OP DIAG, (#.74) OTHER [...] Label: Lucas Meek Paperwork: Lucas Meek Cassette: [id number];..;KALYANI;.;405;[id number] Specimen is labeled: ES bx Received in formalin are several pieces of pale boyd and brown tissue, 1.2 x 0.7 cm in aggregate. Submitted entirely in 1 cassette [id number];..;KALYANI;.;405;[id number] SAW 12/15/2021 Microscopic exam: DIAGNOSIS: A. 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 Kendell long. TIARA Coombs was notified on 12/21/21. The attending pathologist who signature mansoor ears on this report has reviewed all diagnostic slides and has edited t he gross and/or microscopic portion of this report in rendering the final pathologic diagnosis. [address] [address] CPT: 37388 /emely/ NIURKA Yeung MD Signed Dec 21, 2021@11:46 Performing Laboratory: Surgical Pathology Report Performed By: [facility] [CLIA# [id number]] [address] [place] [address] $FTR - - - - - [...] - - LUCAS MEEK STANDARD FORM 515 ID:[id number] SEX:M :1950 AGE: 71 LOC: [facility] END PCP: Isatu Todd /charmaine Yeung MD Signed: 12/21/2021 11:46 Dec 06, 2021 03:30 PM LR MICROBIOLOGY REPORT: [facility] Reporting Lab: [facility] [CLIA# [id number]] [address] [place] [address] Accession [UID]: [id number] [[id number]] Receiv ed: Dec 06, 2021@16:14 Collection sample: BLOOD CUL T BOTTLE(NIRMAL/AERO)Collection date: Dec 06, 2021 15:30 Site/Specimen: BLOOD Provider: JELANI SÁNCHEZ Comment on specimen: LAC Test(s) ordered: BLOOD CULTURE ANAEROBI C....... completed: Dec 12, 2021 06:18 * BACTERIOLOGY FINAL REPORT => Dec 12, 2021 06:1 8 TECH CODE: [id number] Bacteriology Remark(s): NO GROWTH IN 5 DAYS =--=--=--=--=--=--=--=--=--=--=--=--=--= --=--=--=--=--=--=--=--=--=--=--=--=-- Performing Laboratory: Bacteriology Report Performed By: [facility] [CLIA# [id number]] [address] [place] [address] Dec 06, 2021 03:30 PM LR MICROBIOLOGY REPORT: [facility] Reporting Lab: [facility] [CLIA# [id number]] [address] [place] [address] Accession [UID]: [id number] [[id number]] Receiv ed: Dec 06, 2021@16:14 Collection sample: BLOOD CUL T BOTTLE(NIRMAL/AERO)Collection date: Dec 06, 2021 15:30 Site/Specimen: BLOOD Provider: JELANI SÁNCHEZ Comment on specimen: LAC Test(s) ordered: BLOOD CULTURE AEROBIC. ........ completed: Dec 12, 2021 06:17 * BACTERIOLOGY FINAL REPORT => Dec 12, 2021 06:1 7 TECH CODE: [id number] Bacteriology Remark(s): NO GROWTH IN 5 DAYS =--=--=--=--=--=--=--=--=--=--=--=--=--= --=--=--=--=--=--=--=--=--=--=--=--=-- Performing Laboratory: Bacteriology Report Performed By: [facility] [CLIA# [id number]] [address] [place] [address]
--- OUTSIDE RECORDS SUMMARY | 2022-01-19 09:09 | XMS_ITS ---
DAILY HOSPITALIZATION DATA [facility] Encounter Summary Created on:December 11, 2021 Patient:LUCAS MEEK Sex:Male :1950 Author Organization [facility] Address [address] [place] [id number] Support Name Relationship Address Phone YUSRA MEEK Unavailable [address] [place] [address] YUSRA MEEK Unavailable [address] [place] [address] CLAY MOSLEY Unavailable Unavailable SJ SANTACRUZ Unavailable [...] MEDICARE MEDICARE PART Jun 18, PART A [id number] KALYANI PATIENT (WNR) (M) A 2016 13A 1 UGLAS MEDICARE MEDICARE PART Jun 18, PART A [id number] MEEK DO PATIENT (WNR) (M) A 2017 VH81 2 [place]AS MEDICARE MEDICARE PART Jun 18, PART B [id number] KALYANIDO PATIENT (WNR) (M) B 2017 VH81 2 [place] MEDICARE MEDICARE PART Jun 18, PART B [id number] DO KALYANI PATIENT (WNR) (M) B 2016 13A 1 U[place]AS UNITED MEDICARE MCR(Jun 18 [id number] Luz MEEK PATIENT HEALTHCARE ADVANTAGE NR) 2021 37 0 UGLAS MCR (WNR) Selected Encounter This section includes the information on record at [place] for the Encounter. Date/Time Encounter Type Encounter Description Reason Provider Source Dec 11, 2021 05:48 Inpatient Visit DAILY HOSPITALIZATION DATA AM [facility] Encounter Template Text not used by [place] [...] [place] [facility] Jan 06, 2022 02:00 PM [place] [facility] Jan 10, 2022 11:30 AM [facility]BULATORY - MEDICINE [facility] Jan 24, 2022 08:00 AM [place] [facility] Feb 21, 2022 10:00 AM [place] [facility] Mar 21, 2022 10:30 AM [...] The data comes from all PR treatment [facility]. Test Date/Time Test Type Test Details Facility Name October 31, 2021 07:37 AM Consult Order COMMUNITY CARE-EGD [facility] Cons Beverage Sales Consultant's Choice November 15, 2021 10:37 AM Consult Order [facility] CARE-PODIATRY Cons Beverage Sales Consultant's Choice Dec 06, 2021 12:52 PM Pharmacy [place] Infusion Order [facility] Dec 06, 2021 03:24 PM [place]acy [place] [facility] Dec 06, 2021 03:40 PM [place]acy [place] [facility] Dec 15, 2021 08:41 AM Consult Order SPEECH PATHOLOGY [place] OUTPATIENT Cons [facility] Beverage Sales Consultant's Choice Jan 15, 2022 10:08 PM Consult Order [facility] CARE-PALLIATIVE CARE Cons [employer]age Sales Consultant's Choice Lab Results: +/- 30 days [...] Range Comment Dec 15, 2021 06:[address] [facility] CBC PROFILE Sp ecimen Type: BLOOD No comment enter ed. Ordering Provid er: ISATU TODD Report Released Date/Time: Dec 10, 2021 07:22 AM Reporting Lab: [facility] [address] [facility] [address] Performing Lab: [facility] [address] [facility] [address] WBC 5.7 4.5-11.0 RBC 4.22 L 4.23-5.66 [...] ABSOLUTE NRBC 0.00 0-0 Dec 15, 2021 [facility] P4 GLU,BUN,CREAT,LYTES,CA Speci men Type: PLASMA 06:43 AM [facility] Comment: Tests performed on Pham Theater Set Production Designer (405) SN:[id number] Ordering Provid er: ISATU TODD Report Released Date/Time: Dec 11, 2021 07:42 AM Reporting Lab: [facility] [address] [facility] [address] Performing Lab: [facility] [address] [facility] [address] UREA NITROGEN 9 7-25 SODIUM 137 135-145 POTASSIUM 3.8 3.5-5.0 CHLORIDE 105 100-110 CARBON DIOXIDE 26 20-30 ANION GAP 6 4-16 GLUCOSE 102 H 65-100 CREATININE 0.64 0.5-1.5 CALCIUM 8.1 L 8.5-10.5 eGFR(CKD-EPI 2020) >90.0 >60 Dec 14, 2021 [facility] CYTOGENETIC Specimen Type: ESOPHAGUS 02:59 PM [facility] FISH([facility]) Comment: ~For T est: CYTOGENETIC FISH([facility]) ~FISH HER 2 NUE, FFPE See full report in NOTIK Image display viewer/tab#LAB-Reference Ordering Provid er: NIURKA MILLER Report Released Date/Time: Dec 21, 2021 12:11 PM Reporting Lab: [facility] [address] [facility] [address] Performing Lab: [facility] CYTOGENETIC FISH([facility]) comment Dec 14, 2021 [place] P4 GLU,BUN,CREAT,LYTES,CA Speci men Type: PLASMA 06:27 AM [facility] Comment: Tests performed on Pham Theater Set Production Designer (405) SN:[id number] Ordering Provid er: ISATU TODD Report Released Date/Time: Dec 11, 2021 07:42 AM Reporting Lab: [facility] [address] [facility] [address] Performing Lab: [facility] [address] [facility] [address] UREA NITROGEN 10 7-25 SODIUM 137 135-145 [...] [facility] [address] [facility] [address] Performing Lab: [facility] [address] [facility] [address] WBC 6.0 4.5-11.0 RBC 4.29 4.23-5.66 HGB [...] GLU,BUN,CREAT,LYTES,CA Speci men Type: PLASMA 06:34 AM [facility] Comment: Tests performed on HandelabraGames (405) SN:[id number] Ordering Provid er: ISATU TODD Report Released Date/Time: Dec 11, 2021 07:42 AM Reporting Lab: [facility] [address] [facility] [address] Performing Lab: [facility] [address] [facility] [address] UREA NITROGEN 12 7-25 SODIUM 136 135-145 [...] [facility] [address] [facility] [address] Performing Lab: [facility] [address] [facility] [address] WBC 5.6 4.5-11.0 RBC 4.28 4.23-5.66 HGB [...] 10, 2021 07:22 AM Reporting Lab: [facility] [address] [facility] [address] Performing Lab: [facility] [address] [facility] [address] WBC 5.5 4.5-11.0 RBC 4.37 4.23-5.66 HGB [...] GLU,BUN,CREAT,LYTES,CA Speci men Type: PLASMA 06:21 AM [facility] Comment: Tests performed on HandelabraGames (432) SN:[id number] Ordering Provid er: ISATU TODD Report Released Date/Time: Dec 11, 2021 07:42 AM Reporting Lab: [facility] [address] [facility] [address] Performing Lab: [facility] [address] [facility] [address] UREA NITROGEN 11 7-25 SODIUM 139 135-145 POTASSIUM 4.1 3.5-5.0 CHLORIDE 107 100-110 CARBON DIOXIDE 24 20-30 ANION GAP 8 4-16 GLUCOSE 110 H 65-100 CREATININE 0.70 0.5-1.5 CALCIUM 8.3 L 8.5-10.5 eGFR(CKD-EPI 2020) >90.0 >60 Dec 12, 2021 06:00 AM [place] [facility] MAGNESIUM Sp ecimen Type: PLASMA Comment: Testin g Performed on HandelabraGames (405) SN:[id number] Ordering Provid er: ISATU TODD Report Released Date/Time: Dec 12, 2021 08:24 AM Reporting Lab: [place] [facility] [address] [facility] [address] Performing Lab: [place] [facility] Specific[facility]OC [address] [facility] [address] MAGNESIUM 1.8 1.6-2.6 Dec 12, 2021 06:00 AM [facility] [place] [facility] General SpecificMROC PHOSPHORUS Sp ecimen Type: PLASMA Comment: Testin g Performed on HandelabraGames (405) SN:[id number] Ordering Provid er: ISATU TODD Report Released Date/Time: Dec 12, 2021 08:24 AM Reporting Lab: [place] [facility] [address] [facility] [address] Performing Lab: [place] [facility] [address] [facility] [address] PHOSPHORUS 3.1 2.5-5.0 Dec 11, 2021 06:15 AM [employer] [place] [facility]anT General SpecificMROC ELECTROLYTES Sp ecimen Type: PLASMA Comment: Tests performed on HandelabraGames (405) SN:[id number] Ordering Provid er: ISATU TODD Report Released Date/Time: Dec 10, 2021 07:22 AM Reporting Lab: [place] [facility] [address] [facility] [address] Performing Lab: [place] [facility] [address] [facility] [address] SODIUM 137 135-145 POTASSIUM 4.3 3.5-5.0 CHLORIDE 108 100-110 CARBON DIOXIDE 20 20-30 ANION GAP 9 4-16 Dec 11, 2021 06:15 AM [place] [facility] [facility] CBC PROFILE Sp ecimen Type: BLOOD Comment: Result s checked Ordering Provid er: ISATU TODD Report Released Date/Time: Dec 10, 2021 07:22 AM Reporting Lab: [place] [facility] [address] [facility] [address] Performing Lab: [place] [facility] [address] [facility] [address] WBC 5.8 4.5-11.0 RBC 4.37 4.23-5.66 HGB [...] ecimen Type: PLASMA Comment: Tests performed on HandelabraGames (033) SN:[id number] Results checked Ordering Provid er: ISATU TODD Report Released Date/Time: Dec 11, 2021 07:44 AM Reporting Lab: [facility] [facility] [address] [facility] [address] Performing Lab: [place] PR[facility] [address] [facility] [address] PHOSPHORUS 3.0 2.5-5.0 Dec 10, 2021 08:05 AM [place] [facility] MAGNESIUM Sp ecimen Type: PLASMA Comment: [place] [id number] on Dec 10, 2021@08:31 Tests performed on HandelabraGames (405) SN:[id number] Ordering Provid er: ISATU TODD Report Released Date/Time: Dec 10, 2021 07:22 AM Reporting Lab: [place] [facility] [address] [place] [facility] [place] [place] [address] Performing Lab: [place] [facility] [address] [place] [facility] [place] [place] [address] MAGNESIUM 1.7 1.6-2.6 Dec 10, 2021 08:05 AM [place] [facility] PHOSPHORUS Sp ecimen Type: PLASMA Comment: [place] [id number] on Dec 10, 2021@08:31 Tests performed on HandelabraGames (405) SN:[id number] Ordering Provid er: ISATU TODD Report Released Date/Time: Dec 10, 2021 07:22 AM Reporting Lab: [place] [facility] [address] [place] [facility] [place] [place] [place] [address] Performing Lab: [place] [facility] [address] [place] [facility] [place] [place] [address] PHOSPHORUS 1.8 L 2.5-5.0 Dec 10, 2021 08:05 AM [place] [facility] GLUCOSE Sp ecimen Type: PLASMA Comment: [place] [id number] on Dec 10, 2021@08:31 Tests performed on HandelabraGames (405) SN:[id number] Ordering Provid er: ISATU TODD Report Released Date/Time: Dec 10, 2021 07:22 AM Reporting Lab: [place] [facility] [address] [place] [facility] [place] [place] [place] [address] Performing Lab: [place] [facility] [address] [place] [facility] [place] [place] [place] [address] GLUCOSE 144 H 65-100 Dec 10, 2021 08:05 AM [place] UREA NITROGEN Specimen Type: PLASMA [facility] Comment: [place] [id number] on Dec 10, 2021@08:31 Tests performed on HandelabraGames (405) SN:[id number] Ordering Provid er: ISATU TODD Report Released Date/Time: Dec 10, 2021 07:22 AM Reporting Lab: [place] [facility] [address] [facility] [address] Performing Lab: [facility] [address] [facility] [address] UREA NITROGEN 8 7-25 Dec 10, 2021 08:05 AM [place] [facility] CALCIUM Sp ecimen Type: PLASMA Comment: [place] [id number] on Dec 10, 2021@08:31 Tests performed on HandelabraGames (405) SN:[id number] Ordering Provid er: ISATU TODD Report Released Date/Time: Dec 10, 2021 07:22 AM Reporting Lab: [place] [facility] [address] [facility] [address] Performing Lab: [facility] [address] [facility] [address] CALCIUM 8.3 L 8.5-10.5 Dec 10, 2021 08:05 AM [place] [facility] CBC PROFILE Sp ecimen Type: BLOOD No comment enter ed. Ordering Provid er: ISATU TODD Report Released Date/Time: Dec 10, 2021 07:22 AM Reporting Lab: [facility] [address] [facility] [address] Performing Lab: [place] [facility] [address] [facility] [address] WBC 7.0 4.5-11.0 RBC 4.54 4.23-5.66 HGB [...] PLASMA AM [facility] PANEL Comment: [place] [id number] on Dec 10, 2021@08:31 Tests performed on HandelabraGames (405) SN:[id number] Ordering Provid er: ISATU TODD Report Released Date/Time: Dec 10, 2021 07:22 AM Reporting Lab: [place] [facility] [address] [facility] [address] Performing Lab: [place] [facility] [address] [facility] [address] CREATININE 0.78 0.5-1.5 eGFR(CKD-EPI 2020) >90.0 >60 Dec 10, 2021 08:05 AM [place] [facility] ELECTROLYTES Sp ecimen Type: PLASMA Comment: [place] [id number] on Dec 10, 2021@08:31 Tests performed on HandelabraGames (405) SN:[id number] Ordering Provid er: ISATU TODD Report Released Date/Time: Dec 10, 2021 07:22 AM Reporting Lab: [place] [facility] [address] [facility] [address] Performing Lab: [place] [facility] [address] [facility] [address] SODIUM 139 135-145 POTASSIUM 3.7 3.5-5.0 CHLORIDE 107 100-110 CARBON DIOXIDE 24 20-30 ANION GAP 8 4-16 Dec 09, 2021 06:46 AM [place] [facility] MAGNESIUM Sp ecimen Type: PLASMA Comment: Tests performed on HandelabraGames (405) SN:[id number] Ordering Provid er: ISATU TODD Report Released Date/Time: Dec 08, 2021 10:23 AM Reporting Lab: [place] [facility] [address] [facility] [address] Performing Lab: [place] [facility] [address] [facility] [address] MAGNESIUM 1.6 1.6-2.6 Dec 09, 2021 [facility] P4 GLU,BUN,CREAT,LYTES,CA Speci men Type: PLASMA 06:46 AM [facility] Comment: Tests performed on HandelabraGames (405) SN:[id number] Ordering Provid er: ISATU TODD Report Released Date/Time: Dec 08, 2021 05:00 PM Reporting Lab: [facility] [address] [facility] [address] Performing Lab: [facility] [address] [facility] [address] UREA NITROGEN 6 L 7-25 SODIUM 134 [...] [facility] [address] [facility] [address] Performing Lab: [facility] [address] [facility] [address] WBC 7.1 4.5-11.0 RBC 4.40 4.23-5.66 HGB [...] 0.00 0-0 Dec 08, 2021 06:39 AM [place] [employer] [facility] MAGNESIUM Sp ecimen Type: PLASMA Comment: Testin g Performed on HandelabraGames (405) SN:[id number] Ordering Provid er: ISATU TODD Report Released Date/Time: Dec 07, 2021 10:32 AM Reporting Lab: [facility] [address] [facility] [address] Performing Lab: [facility] [address] [facility] [address] MAGNESIUM 1.5 L 1.6-2.6 Dec 08, 2021 [place] [employer] T P4 GLU,BUN,CREAT,LYTES,CA Speci men Type: PLASMA 06:39 AM [facility] Comment: Testin g Performed on HandelabraGames (405) SN:[id number] Ordering Provid er: ISATU TODD Report Released Date/Time: Dec 07, 2021 10:32 AM Reporting Lab: [place] [facility] [address] [facility] [address] Performing Lab: [facility] [address] [facility] [address] UREA NITROGEN 6 L 7-25 SODIUM 136 135-145 POTASSIUM 3.3 L 3.5-5.0 CHLORIDE 104 100-110 CARBON DIOXIDE 22 20-30 ANION GAP 10 4-16 GLUCOSE 133 H 65-100 CREATININE 0.76 0.5-1.5 CALCIUM 8.4 L 8.5-10.5 eGFR(CKD-EPI 2020) >90.0 >60 Dec 08, 2021 06:39 AM [place] [employer] [facility] CBC PROFILE Sp ecimen Type: BLOOD No comment enter ed. Ordering Provid er: ISATU TODD Report Released Date/Time: Dec 07, 2021 10:32 AM Reporting Lab: [facility] [address] [facility] [address] Performing Lab: [facility] [address] [facility] WBC 8.4 [...] NRBC 0.00 0-0 Dec 07, 2021 06:42 [facility] LIVER PROFILE Specimen Typ e: PLASMA AM [facility] Comment: Tests performed on HandelabraGames (405 SN:[id number] Ordering Provid er: PORFIRIO WALTERS Report Released Date/Time: Dec 06, 2021 06:57 PM Reporting Lab: [facility] [address] [facility] [address] Performing Lab: [facility] [address] [facility] [address] PROTEIN, TOTAL 5.7 L 6.0-8.5 ALBUMIN 2.4 L 3.2-5.0 BILIRUBIN, TOTAL 0.4 0.2-1.2 ALKALINE PHOSPHATASE 109 40-150 ALT(SGPT) 10 7-52 AST(SGOT) 15 5-34 FIB-4 SCORE 1.92 <2.67 Dec 07, 2021 [facility] P4 GLU,BUN,CREAT,LYTES,CA Speci men Type: PLASMA 06:42 AM [facility] Comment: Tests performed on HandelabraGames (405) SN:[id number] Ordering Provid er: PORFIRIO WALTERS Report Released Date/Time: Dec 06, 2021 06:57 PM Reporting Lab: [place] [facility] [address] [facility] [address] Performing Lab: [place] [facility] [address] [facility] [address] UREA NITROGEN 9 7-25 SODIUM 135 135-145 POTASSIUM 3.5 3.5-5.0 CHLORIDE 103 100-110 CARBON DIOXIDE 22 20-30 ANION GAP 10 4-16 GLUCOSE 92 65-100 CREATININE 0.73 0.5-1.5 CALCIUM 8.0 L 8.5-10.5 eGFR(CKD-EPI 2020) >90.0 >60 Dec 07, 2021 06:42 AM [place] CBC PROFILE Specimen Type: BLOOD [facility] No comment enter ed. Ordering Provid er: PORFIRIO WALTERS Report Released Date/Time: Dec 06, 2021 06:57 PM Reporting Lab: [place] [facility] [address] [facility] [address] Performing Lab: [facility] [address] [facility] [address] WBC 5.7 4.5-11.0 RBC 4.15 L 4.23-5.66 [...] [facility] %) AUTOMATED Comment: Tests performed on HandelabraGames (405) SN:[id number] Ordering Provid er: ISATU TODD Report Released Date/Time: Dec 07, 2021 10:28 AM Reporting Lab: [place] [facility] [address] [facility] [address] Performing Lab: [place] [facility] [address] [facility] [address] RETICULOCYTES (%) AUTOMATED 1.23 0. 6-2.0 RETICULOCYTES (ABS) AUTOMATED 0.052 0.030-0.090 Dec 06, 2021 09:45 [place] MRSA SURVL NARES Specimen Ty pe: NARES PM [facility] DNA No comment enter ed. Ordering Provid er: ALVARO VARGHESE Report Released Date/Time: Dec 07, 2021 02:20 AM Reporting Lab: [place] [facility] [address] [facility] [address] Performing Lab: [place] [facility] [address] [facility] [address] MRSA SURVL NARES DNA NEGATIVE NEGATIVE Dec 06, 2021 06:00 [place] URINALYSIS W/REFLEX TO Speci men Type: URINE PM [facility] CULTURE No comment enter ed. Ordering Provid er: JELANI SÁNCHEZ Report Released Date/Time: Dec 06, 2021 11:57 AM Reporting Lab: [place] [facility] [address] [facility] [address] Performing Lab: [place] [facility] [address] [facility] [address] URINE COLOR Arlin YELLOW SPECIFIC GRAVITY 1.029 [...] 21, [place] Comment: https://www.cdc.gov/coronavirus/2019-ncov/cases-updates/variant- surveillance/variant-info.html The Aloompa SARS CoV 2 Diversion Research Assay-GX is a next-generation sequencing (NGS) assa 2021 [facility] SEQUENCING y that determine s the complete genome sequence of the SARS-CoV-2 virus. The assay contains variant-tolerant primers to broaden and improve the coverage for variant detection and increase the sensitivity 12:00 [facility] PNL(WH) of the panel to enable detection from lower viral titer samples. The assay is run on the GILUPI Sequencer, which performs automated library preparation, sequencing, analysis, and reporting. PM The sequence an alysis includes determination of viral phylogenetic lineage by comparison to the reference strain Wuhan-Hu-1, GenBank: [id number]. Sequence determination may not be possible owing [...] [facility] [address] [facility] [address] Performing Lab: [facility] [address] [place] [facility] [address] SARS-CoV-2 CLADE() 22C (OMICRON) SARS-CoV-2 LINEAGE() BA.2.12.1 Dec 06, 2021 12:00 [facility] COVID-19 AG SCREEN Specimen Type: NASAL CAVITY PM [facility] PANEL BINAX(405) Comment: Testi ng Performed By: Mike Briscoe Ordering Provid er: JELANI SÁNCHEZ Report Released Date/Time: Dec 08, 2021 08:23 AM Reporting Lab: [facility] [address] [facility] [address] Performing Lab: [facility] [address] [facility] [address] COVID-19 AG SCRN(wrj BINAX) POSITIVE HH NE G Dec 06, 2021 12:00 PM [facility] LIVER PROFILE Sp ecimen Type: PLASMA Comment: Testin g Performed on Pham Theater Set Production Designer (405) SN:[id number] Ordering Provid er: JELANI SÁNCHEZ Report Released Date/Time: Dec 06, 2021 11:57 AM Reporting Lab: [facility] [address] [facility] [address] Performing Lab: [facility] [address] [facility] [address] PROTEIN, TOTAL 6.6 6.0-8.5 ALBUMIN 2.8 L 3.2-5.0 BILIRUBIN, TOTAL 0.6 0.2-1.2 ALKALINE PHOSPHATASE 134 40-150 ALT(SGPT) 13 7-52 AST(SGOT) 18 5-34 FIB-4 SCORE 1.94 <2.67 Dec 06, 2021 [facility] P4 GLU,BUN,CREAT,LYTES,CA Speci men Type: PLASMA 12:00 PM [facility] Comment: Testin g Performed on Pham Theater Set Production Designer (405) SN:[id number] Ordering Provid er: JELANI SÁNCHEZ Report Released Date/Time: Dec 06, 2021 11:57 AM Reporting Lab: [place] [facility] [address] [facility] [address] Performing Lab: [place] [facility] [address] [facility] [address] UREA NITROGEN 13 7-25 SODIUM 138 135-145 POTASSIUM 3.8 3.5-5.0 CHLORIDE 103 100-110 CARBON DIOXIDE 23 20-30 ANION GAP 12 4-16 GLUCOSE 105 H 65-100 CREATININE 0.90 0.5-1.5 CALCIUM 8.7 8.5-10.5 eGFR(CKD-EPI 2020) >90.0 >60 Dec 06, 2021 12:00 PM [facility] BNP(P) Sp ecimen Type: PLASMA Comment: Tests performed on Pham Theater Set Production Designer (405) SN:[id number] Ordering Provid er: JELANI SÁNCHEZ Report Released Date/Time: Dec 06, 2021 11:57 AM Reporting Lab: [facility] [address] [facility] [address] Performing Lab: [facility] [address] [facility] [address] BNP(P) 224.8 H 10-100 Dec 06, 2021 12:00 PM [facility] TROPONIN II Sp ecimen Type: PLASMA Comment: Tests performed on Pham Theater Set Production Designer (405) SN:[id number] Ordering Provid er: JELANI SÁNCHEZ Report Released Date/Time: Dec 06, 2021 11:57 AM Reporting Lab: [place] [address] [facility] [address] Performing Lab: [facility] [address] [facility] [address] TROPONIN II 0.03 0.00-0.29 Dec 06, 2021 [facility]U/RSV DIAGNOSTIC Spe cimen Type: NASOPHARYNX 12:00 PM [facility] PANEL(405) Comment: Tests performed on [employer] Genexpert (405) Critical results called to and read back by: ALESHIA WILKINSON RN 12/06/21 @ 1312 Ordering Provid er: JELANI SÁNCHEZ Report Released Date/Time: Dec 06, 2021 11:57 AM Reporting Lab: [facility] [address] [facility] [address] Performing Lab: [place] [facility] [address] [facility] [address] FLU A(PCR) NEGATIVE NEGATIVE FLU B(PCR) NEGATIVE NEGATIVE RSV(PCR) NEGATIVE NEGATIVE COVID-19([id number]) DETECTED HH NO T DETECTED Dec 06, 2021 12:00 PM [facility] PRO[facility] Sp ecimen Type: BLOOD No comment enter ed. Ordering Provid er: JELANI SÁNCHEZ Report Released Date/Time: Dec 06, 2021 11:57 AM Reporting Lab: [facility] [address] [facility] [address] Performing Lab: [facility] [address] [facility] [address] WBC 7.2 4.5-11.0 RBC 4.86 4.23-5.66 HGB [...] 2021 07:56 /min mm[Hg] [facility] PM T [facility] Dec 11, 3 WHITE 2021 07:49 RIVER PM T [facility] Dec 11, 98.3 F 98 127/83 18 /min 97 % 0 WHITE 2021 02:50 /min mm[Hg] RIVER PM T [facility] Dec 11, 0 WHITE 2021 01:57 RIVER PM T [facility] Dec 11, 0 WHITE 2021 08:49 RIVER AM [facility] Social History: Smoking Status (Most current) [...] took place. Date/Time Smoking Status/Tobacco Use Comment [facility] Apr 01, 2020 01:16 PM [...] TOBACCO USE IN PAST YEAR [facility] DOYLE [facility] May 01, 2016 11:19 AM QUIT TOBACCO USE IN PAST YEAR [facility] MONTOYA [facility] Mar 16, 2016 12:50 PM V1-PT DECLINES REF TO TOBACCO C[facility]Y DOYLE [facility] CESS PRGM Mar 16, 2016 12:50 PM V1-PT THINKING ABOUT QUIT [facility] [facility] TOBACCO USE Aug 12, 2015 08:48 AM CURRENT SMOKER CAREY Yates [facility] Radiology Reports: +/- 30 days of [...] W/WO CONTRAST: MARYELLEN LONG LUCAS LARES N [id number] -1950 [facility] Exm Date: DEC 13, 2021@12:57 Req Phys: ISATU TODD Loc: OP Unknown/0 12-15-2021@13:20 Img Loc: MRI IMAGING (OOS) Service: ZGENERAL MEDICINE (Case [id number] COMPLETE) MRI ABDOMEN W/WO CONTRAST (M RI Detailed) CPT:27635 Reason for Study: further characterization of a [...] new lyphadenopathy REQUESTING MD: Isatu Todd PAGER: [phone] PHONE: [phone] Weight: 232.2 lb [105.32 kg] (12/12/2021 05:00) [...] will need to arrange for a driver material handler to take him/her home after the MRI [...] 15, 2021 Date Verified: DEC 15, 2021 General Utility Worker E-Sig:/ES/MARYELLEN LONG Report: MRI ABDOMEN W/WO [...] MALIGNANCY Primary Interpreting Staff: Staff AMELIA THOMAS (General Utility Worker) / Dec 10, 2021 09:[address] ABDOMEN & PELVIS: [facility] LUCAS [facility]EEK N [id number] -1950 M [facility]ICE [facility] Exm Date: DEC 10, 2021@09:30 Req Phys: ISATU TODD Loc: 1S MED/12-10@10:57 Img Loc: CT SCAN (OOS) Service: [facility] MEDICINE (Case [id number] COMPLETE) CT ABD & PELVIS WITHOUT CONT RAST (CT Detailed) CPT:26010 Reason for Study: 71 yo male with [...] INDEX - NO HEIGHTS FOUND Pager number: [phone] STAT orders MUST be call ed to RADIOLOGY [phone] to speak to the appropriate oil field technician. Report Status: Verified Date Reported: DEC 10, 2021 Date Verified: DEC 10, 2021 General Utility Worker E-Sig: Report: EXAM: CT abdomen and [...] ph nodes. READING PHYSICIAN: Ramone Munoz D.O. [phone] 12/10/2021 10:55 EDT [facility] National Teleradiology Program [phone] (For Medical Practitioner Use Only ) [address] [facility], [facility] [address], [address] [place] [address] Attention Patients / Veterans: If you have ques tions or concerns about these test results, please contact your o rdering provider or primary care team. Primary Diagnostic Code: SIGNIFICANT ABNORMALIT Y, ATTN NEEDED Primary Interpreting Staff: RADIOLOGY,OUTSIDE SERVICE, Staff Physician / Dec 09, 2021 07:34 AM BASW (MODIFIED): JESSIE CHENEY TARA ER JCT LUCAS MEEK [id number] -1950 M [facility] Exm Date: DEC 09, 2021@07:34 Req Phys: ISATU TODD Yao Manjarrez Loc: 1S MED/12-09@11:26 Img Loc: XRAY (OOS) Service: [facility] MEDICINE (Case [id number] COMPLETE) BASW (MODIFIED) (RAD Detaile d) CPT:22389 Contrast Media : Barium Reason for Study: dysphagia ?esophageal spasm Clinical History: Report Status: Verified Date Reported: DEC 09, 2021 Date Verified: DEC 09, 2021 General Utility Worker E-Sig:/ES/JESSIE CHENEY Report: BASW (MODIFIED) , [...] REQUIRED Primary Interpreting Staff: JESSIE CHENEY, RADIOLOGIST (General Utility Worker) /TLC Dec 06, 2021 12:[address] CHEST (INCLUDES ADRENALS): [facility]ESSIE [facility]ENEY [facility] [id number] -1950 [facility] Ex[facility] Date: DEC 06, 2021@12:59 Req Phys: GONZALOJELANI Loc: [facility] ED DAYS M 1RD (Req'g Loc) Img Loc: CT SCAN (OOS) Service: Unknown (Case [id number] COMPLETE) CT THORAX W/O CONT (CT Detai led) CPT:38618 Reason for Study: Opacification right chest Clinical History: No contrast allergy BUN: 13 (12/06/21 12:00) CREATI: 0.90 (12/06/21 12:00) eGFR 05/16/21 09:43 52 L Weight: 232.6 lb [105.51 kg] (12/06/2021 11:40) BODY MASS INDEX - NO HEIGHTS FOUND Pager number: [phone] STAT orders MUST be called t o RADIOLOGY [phone] to speak to the appropriate oil field technician. Indications - Other: Opacification right chest, covid positive, lung cancer histo Report Status: Verified Date Reported: DEC 06, 2021 Date Verified: DEC 06, 2021 General Utility Worker E-Sig:/ES/JESSIE CHENEY Report: CT THORAX W/O [...] REQUIRED Primary Interpreting Staff: JESSIE CHENEY, RADIOLOGIST (General Utility Worker) Primary Interpreting Resident: PRINCE CHAMPION, Resident /BR Dec 06, 2021 11:58 AM CHEST SINGLE VIEW: JESSIE CHENEYT LUCAS MEEK N [id number] -1950 [facility] Exm Date: DEC 06, 2021@11:58 Req Phys: JELANI SÁNCHEZ Pat Loc: [facility] ED DAYS M 1RD (Req'g Loc) Img Loc: XRAY (OOS) Service: Unknown (Case [id number] COMPLETE) CHEST SINGLE VIEW (RAD Detai led) CPT:27729 Proc Modifiers : PORTABLE EXAM Reason for Study: SOB, home covid test positive Clinical History: Report Status: Verified Date Reported: DEC 06, 2021 Date Verified: DEC 06, 2021 General Utility Worker E-Sig:/ES/JESSIE CHENEY Report: Exam type: Chest [...] REQUIRED Primary Interpreting Staff: JESSIE CHENEY, RADIOLOGIST (General Utility Worker) /TLC Pathology Reports: +/- 30 days [...] MILLER LOCAL TITLE: LR SURGICAL PATHOLOGY REPORT [facility] STANDARD TITLE: PATHOLOGY REPORT DATE OF NOTE: JAN 03, 2022@10:28:01 ENTRY DATE: JAN 03, 2022@10:28:01 AUTHOR: NIURKA MILLER EXP COSIGNER: URGENCY: STATUS: COMPLETED $APHDR Reporting Lab: [facility] [CLIA# [id number]] [address] [place] [address] - - - - - - [...] automatically d ocumented from SURGERY package case #[id number] Field (#32) PRINCIPAL PRE-OP DIAGNOSIS, (#.72) OTHER [...] automatically d ocumented from SURGERY package case #[id number] Field (#34) PRINCIPAL POST-OP DIAG, (#.74) OTHER [...] Label: Lucas Meek Paperwork: Lucas Meek Cassette: [id number];..;KALYANI;.;405;[phone] Specimen is labeled: ES bx Received in formalin are several pieces of pale boyd and brown tissue, 1.2 x 0.7 cm in aggregate. Submitted entirely in 1 cassette [id number];..;KALYANI;.;405;[id number] SAW 12/15/2021 Microscopic exam: *+* MODIFIED REPORT *+* (Last modified: JAN 03, 2022@09:30:20 typed by NIURKA WADDELL) DIAGNOSIS: A. 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 Kendell long. TIARA Coombs was notified on 12/21/21. Modified on 01/03/22 to include report from [facility] stating that tumor is NEGATIVE for her2/ matheus amplification. The attending pathologist who signature mansoor ears on this report has reviewed all diagnostic slides and has edited t he gross and/or microscopic portion of this report in rendering the final pathologic diagnosis. [address] [address] CPT: 97745 /emely/ NIURKA Yeung MD Signed Jan 03, 2022@10:28 Performing Laboratory: Surgical Pathology Report Performed By: [facility] [CLIA# [id number]] [address] [place] [address] $FTR - - - - - [...] - - LUCAS MEEK STANDARD FORM 515 ID:[id number] SEX:M :1950 AGE: 71 LOC: [facility] END PCP: Isatu Todd /emely/ NIURKA MILLER Staff Signed: 01/03/2022 10:28 Dec 21, 2021 11:46 AM LR SURGICAL PATHOLOGY REPORT: STEFANY MILLER [facility] LOCAL TITLE: LR SURGICAL PATHOLOGY REPORT [facility] STANDARD TITLE: PATHOLOGY REPORT DATE OF NOTE: DEC 21, 2021@11:46:59 ENTRY DATE: DEC 21, 2021@11:46:59 AUTHOR: NIURKA MILLER EXP COSIGNER: URGENCY: STATUS: COMPLETED $APHDR Reporting Lab: [facility] [CLIA# [id number]] [address] [place] [address] - - - - - - [...] automatically d ocumented from SURGERY package case #[id number] Field (#32) PRINCIPAL PRE-OP DIAGNOSIS, (#.72) OTHER [...] ocumented from SURGERY package case #[id number] Field (#34) PRINCIPAL POST-OP DIAG, (#.74) OTHER [...] Label: Lucas Meek Paperwork: Lucas Meek Cassette: [id number];..;KALYANI;.;405;[phone] Specimen is labeled: ES bx Received in formalin are several pieces of pale boyd and brown tissue, 1.2 x 0.7 cm in aggregate. Submitted entirely in 1 cassette [id number];..;KALYANI;.;405;[id number] SAW 12/15/2021 Microscopic exam: DIAGNOSIS: A. 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 Kendell long. TIARA Coombs was notified on 12/21/21. The attending pathologist who signature mansoor ears on this report has reviewed all diagnostic slides and has edited t he gross and/or microscopic portion of this report in rendering the final pathologic diagnosis. [address] [address] CPT: 52681 /emely/ NIURKA Yeung MD Signed Dec 21, 2021@11:46 Performing Laboratory: Surgical Pathology Report Performed By: [facility] [CLIA# [id number]] [address] [place] [address] $FTR - - - - - [...] - - LUCAS MEEK STANDARD FORM 515 ID:[id number] SEX:M :1950 AGE: 71 LOC: [facility] END PCP: Isatu Todd /charmaine Yeung MD Signed: 12/21/2021 11:46 Dec 06, 2021 03:30 PM LR MICROBIOLOGY REPORT: [facility] Reporting Lab: [facility] [CLIA# [id number]] [address] [place] [address] Accession [UID]: [id number] [[id number]] Receiv ed: Dec 06, 2021@16:14 Collection sample: BLOOD CUL T BOTTLE(NIRMAL/AERO)Collection date: Dec 06, 2021 15:30 Site/Specimen: BLOOD Provider: JELANI SÁNCHEZ Comment on specimen: LAC Test(s) ordered: BLOOD CULTURE ANAEROBI C....... completed: Dec 12, 2021 06:18 * BACTERIOLOGY FINAL REPORT => Dec 12, 2021 06:1 8 TECH CODE: [id number] Bacteriology Remark(s): NO GROWTH IN 5 DAYS =--=--=--=--=--=--=--=--=--=--=--=--=--= --=--=--=--=--=--=--=--=--=--=--=--=-- Performing Laboratory: Bacteriology Report Performed By: [facility] [CLIA# [id number]] [address] [place] [address] Dec 06, 2021 03:30 PM LR MICROBIOLOGY REPORT: [facility] Reporting Lab: [facility] [CLIA# [id number]] [address] [place] [address] Accession [UID]: [id number] [[id number]] Receiv ed: Dec 06, 2021@16:14 Collection sample: BLOOD CUL T BOTTLE(NIRMAL/AERO)Collection date: Dec 06, 2021 15:30 Site/Specimen: BLOOD Provider: JELANI SÁNCHEZ Comment on specimen: LAC Test(s) ordered: BLOOD CULTURE AEROBIC. ........ completed: Dec 12, 2021 06:17 * BACTERIOLOGY FINAL REPORT => Dec 12, 2021 06:1 7 TECH CODE: [id number] Bacteriology Remark(s): NO GROWTH IN 5 DAYS =--=--=--=--=--=--=--=--=--=--=--=--=--= --=--=--=--=--=--=--=--=--=--=--=--=-- Performing Laboratory: Bacteriology Report Performed By: [facility] [CLIA# [id number]] [address] [place] [address]
--- OUTSIDE RECORDS SUMMARY | 2022-01-19 09:09 | XMS_ITS ---
DAILY HOSPITALIZATION DATA [facility] Encounter Summary Created on:December 11, 2021 Patient:LUCAS MEEK Sex:Male :1950 Author Organization [facility] Address [address] [place] [id number] Support Name Relationship Address Phone YUSRA MEEK Unavailable [address] [place] [address] YUSRA MEEK Unavailable [address] [place] [address] CLAY MOSLEY Unavailable Unavailable SJ SANTACRUZ Unavailable [...] MEDICARE MEDICARE PART Jun 18, PART A [id number] DO KALYANI PATIENT (WNR) (M) A 2016 13A 1 UGLAS MEDICARE MEDICARE PART Jun 18, PART A [id number] DO KALYANI PATIENT (WNR) (M) A 2017 VH81 2 LAS MEDICARE MEDICARE PART Jun 18, PART B [id number] DO KALYANI PATIENT (WNR) (M) B 2016 13A 1 UGLAS MEDICARE MEDICARE PART Jun 18, PART B [id number] DO KALYANI PATIENT (WNR) (M) B 2017 VH81 2 UGLAS UNITED MEDICARE MCR(Jun 18 [id number] Luz MEEK PATIENT HEALTHCARE ADVANTAGE NR) 2021 37 0 [facility] (WNR) Selected Encounter This section includes the information on record at ID for the Encounter. Date/Time Encounter Type Encounter Description Reason Provider Source Dec 11, 2021 06:36 Inpatient Visit DAILY HOSPITALIZATION DATA AM [facility] Encounter Template Text not used by ID [...] AMBULATORY - NONE [place] [facility] Jan 06, 2022 02:00 PM [place] [facility] Jan 10, 2022 11:30 AM [facility] - MEDICINE [facility] Jan 24, 2022 08:00 [place] [facility] Feb 21, 2022 10:00 AM AMBUL[place]ORY - [place]GERY [place] [facility] (FORMERLY [...] The data comes from all ID treatment [facility]. Test Date/Time Test Type Test Details Facility Name October 31, 2021 07:37 AM Consult Order [facility] Cons Asphalt Distributor Operator's Choice November 15, 2021 10:37 AM Consult Order [facility] Cons Asphalt Distributor Operator's Choice Dec 06, 2021 12:52 PM [...] [place] OUTPATIENT Cons [facility] [employer]phalt Distributor Operator's Choice Jan 15, 2022 10:08 PM Consult Order [facility]ALLI[facility]IVE CARE Cons Asphalt Distributor Operator's Choice Lab Results: +/- 30 days [...] Reference Range Comment Dec 15, 2021 [place] P4 GLU,BUN,CREAT,LYTES,CA Speci men Type: PLASMA 06:43 AM [facility] Comment: Tests performed on In Motion Technology (405) SN:[id number] Ordering Provid er: ISATU TODD Report Released Date/Time: Dec 11, 2021 07:42 AM Reporting Lab: [facility] T [facility] [address] [address] Performing Lab: [facility] [address] [address] UREA NITROGEN 9 7-25 SODIUM 137 135-145 POTASSIUM 3.8 3.5-5.0 CHLORIDE 105 100-110 CARBON DIOXIDE 26 20-30 ANION GAP 6 4-16 GLUCOSE 102 H 65-100 CREATININE 0.64 0.5-1.5 CALCIUM 8.1 L 8.5-10.5 eGFR(CKD-EPI 2020) >90.0 >60 Dec 15, 2021 06:43 AM [place] [facility] CBC PROFILE Sp ecimen Type: BLOOD No comment enter ed. Ordering Provid er: ISATU TODD Report Released Date/Time: Dec 10, 2021 07:22 AM Reporting Lab: [facility] T [facility] [address] [address] Performing Lab: [facility] [address] [address] WBC 5.7 4.5-11.0 RBC 4.22 L 4.23-5.66 [...] NUE, FFPE See full report in The [employer] Image display viewer/tab#LAB-Reference Ordering Provid er: NIURKA MILLER Report Released Date/Time: Dec 21, 2021 12:11 PM Reporting Lab: [facility] [address] [address] Performing Lab: [facility] CYTOGENETIC FISH[place] comment Dec 14, 2021 [facility] P4 GLU,BUN,CREAT,LYTES,CA Speci men Type: PLASMA 06:27 AM [facility] Comment: Tests performed on In Motion Technology (405) SN:[id number] Ordering Provid er: ISATU TODD Report Released Date/Time: Dec 11, 2021 07:42 AM Reporting Lab: [facility] [address] [address] Performing Lab: [facility] [address] [facility] [address] UREA NITROGEN 10 7-25 SODIUM 137 135-145 [...] [facility] [address] [address] Performing Lab: [facility] [address] [address] WBC 6.0 4.5-11.0 RBC 4.29 4.23-5.66 HGB [...] ABSOLUTE NRBC 0.00 0-0 Dec 13, 2021 [facility] P4 GLU,BUN,CREAT,LYTES,CA Speci men Type: PLASMA 06:34 AM [facility] Comment: Tests performed on In Motion Technology (405) SN:[id number] Ordering Provid er: ISATU TODD Report Released Date/Time: Dec 11, 2021 07:42 AM Reporting Lab: [facility] [address] [address] Performing Lab: [facility] [address] [address] UREA NITROGEN 12 7-25 SODIUM 136 135-145 [...] [facility] [address] [address] Performing Lab: [facility] [address] [address] WBC 5.6 4.5-11.0 RBC 4.28 4.23-5.66 HGB [...] [facility] Comment: Tests performed on In Motion Technology (405) SN:[id number] Ordering Provid er: ISATU TODD Report Released Date/Time: Dec 11, 2021 07:42 AM Reporting [facility]: [facility] [address] [address] Performing Lab: [facility] [address] [address] UREA NITROGEN 11 7-25 SODIUM 139 135-145 [...] 07:22 AM Reporting Lab: [facility] [address] [address] Performing Lab: [facility] [address] [address] WBC 5.5 4.5-11.0 RBC 4.37 4.23-5.66 HGB [...] 0.00 0-0 Dec 12, 2021 06:00 AM [employer]T [facility] MAGNESIUM Sp ecimen Type: PLASMA Comment: Testin g Performed on In Motion Technology (405) SN:[id number] Ordering Provid er: ISATU TODD Report Released Date/Time: Dec 12, 2021 08:24 AM Reporting Lab: [place] MofangT [facility] [address] [address] Performing Lab: [employer] [place] [facility]ofangT [employer] [address] [address] MAGNESIUM 1.8 1.6-2.6 Dec 12, 2021 06:00 AM [employer]T [employer] PHOSPHORUS Sp ecimen Type: PLASMA Comment: Testin g Performed on In [employer] Technology (405) SN:[id number] Ordering Provid er: ISATU TODD Report Released Date/Time: Dec 12, 2021 08:24 AM Reporting Lab: [place] MofangT [facility] [address] [address] Performing Lab: [place] [employer] [address] [address] PHOSPHORUS 3.1 2.5-5.0 Dec 11, 2021 06:15 AM [employer] [place] MofangT [employer] ELECTROLYTES Sp ecimen Type: PLASMA Comment: Tests performed on In Motion Technology (405) SN:[id number] Ordering Provid er: ISATU TODD Report Released Date/Time: Dec 10, 2021 07:22 AM Reporting Lab: [place] [facility] [address] [address] Performing Lab: [place] [facility]ofangT [facility] [address] [address] SODIUM 137 135-145 POTASSIUM 4.3 3.5-5.0 CHLORIDE 108 100-110 CARBON DIOXIDE 20 20-30 ANION GAP 9 4-16 Dec 11, 2021 06:15 AM [place] [employer] [facility] CBC PROFILE Sp ecimen Type: BLOOD Comment: Result s checked Ordering Provid er: ISATU TODD Report Released Date/Time: Dec 10, 2021 07:22 AM Reporting Lab: [place] [employer] [facility] [address] [address] Performing Lab: [place] OMEGAT [facility] [address] [address] WBC 5.8 4.5-11.0 RBC 4.37 4.23-5.66 HGB [...] ecimen Type: PLASMA Comment: Tests performed on In Motion Technology (607) SN:[id number] Results checked Ordering Provid er: ISATU TODD Report Released Date/Time: Dec 11, 2021 07:44 AM Reporting Lab: [facility] DUFFT [facility] [address] [address] Performing Lab: [place] OMEGAT IDMROC [address] [address] PHOSPHORUS 3.0 2.5-5.0 Dec 10, 2021 08:05 AM [place] [facility] MAGNESIUM Sp ecimen Type: PLASMA Comment: [place] [id number] on Dec 10, 2021@08:31 Tests performed on In [employer] Technology (405) SN:[id number] Ordering Provid er: ISATU TODD Report Released Date/Time: Dec 10, 2021 07:22 AM Reporting Lab: [place] [facility] [address] [place] [facility] [place] [address] Performing Lab: [place] [facility] [address] [place] [facility] [place] [address] MAGNESIUM 1.7 1.6-2.6 Dec 10, 2021 08:05 AM [place] UREA NITROGEN Specimen Type: PLASMA [facility] Comment: [place] [id number] on Dec 10, 2021@08:31 Tests performed on In [employer] Technology (405) SN:[id number] Ordering Provid er: ISATU TODD Report Released Date/Time: Dec 10, 2021 07:22 AM Reporting Lab: [place] [facility] [address] [place] [facility] [place] [place] [address] Performing Lab: [place] [facility] [address] [place] [facility] [place] [address] UREA NITROGEN 8 7-25 Dec 10, 2021 08:05 AM [place] [facility] PHOSPHORUS Sp ecimen Type: PLASMA Comment: [place] [id number] on Dec 10, 2021@08:31 Tests performed on [employer] (405) SN:[id number] Ordering Provid er: ISATU TODD Report Released Date/Time: Dec 10, 2021 07:22 AM Reporting Lab: [place] [facility] [address] [place] [facility] [place] [address] Performing Lab: [place] [facility] [address] [place] [facility] [place] [address] PHOSPHORUS 1.8 L 2.5-5.0 Dec 10, 2021 08:05 AM [place] [facility] GLUCOSE Sp ecimen Type: PLASMA Comment: [place] [id number] on Dec 10, 2021@08:31 Tests performed on In [employer] Technology (405) SN:[id number] Ordering Provid er: ISATU TODD Report Released Date/Time: Dec 10, 2021 07:22 AM Reporting Lab: [place] [facility] [address] [address] Performing Lab: [place] [facility] [address] [address] GLUCOSE 144 H 65-100 Dec 10, 2021 08:05 AM [place] [facility] ELECTROLYTES Sp ecimen Type: PLASMA Comment: [place] [id number] on Dec 10, 2021@08:31 Tests performed on [employer] (405) SN:[id number] Ordering Provid er: ISATU TODD Report Released Date/Time: Dec 10, 2021 07:22 AM Reporting Lab: [place] [facility] [address] [address] Performing Lab: [place] [facility] [address] [address] SODIUM 139 135-145 POTASSIUM 3.7 3.5-5.0 CHLORIDE 107 100-110 CARBON DIOXIDE 24 20-30 ANION GAP 8 4-16 Dec 10, 2021 08:05 AM [place] [facility] CALCIUM Sp ecimen Type: PLASMA Comment: [place] [id number] on Dec 10, 2021@08:31 Tests performed on [employer] (405) SN:[id number] Ordering Provid er: ISATU TODD Report Released Date/Time: Dec 10, 2021 07:22 AM Reporting Lab: [place] [facility] [address] [address] Performing Lab: [place] [facility] [address] [address] CALCIUM 8.3 L 8.5-10.5 Dec 10, 2021 08:05 [place] CREATININE WITH eGFR Specime n Type: PLASMA AM [facility] PANEL Comment: [place] [id number] on Dec 10, 2021@08:31 Tests performed on In Motion Technology (405) SN:[id number] Ordering Provid er: ISATU TODD Report Released Date/Time: Dec 10, 2021 07:22 AM Reporting Lab: [place] [facility] [address] [address] Performing Lab: [place] [facility] [address] [address] CREATININE 0.78 0.5-1.5 eGFR(CKD-EPI 2020) >90.0 >60 Dec 10, 2021 08:05 AM [facility] CBC PROFILE Sp ecimen Type: BLOOD No comment enter ed. Ordering Provid er: ISATU TODD Report Released Date/Time: Dec 10, 2021 07:22 AM Reporting Lab: [place] OMEGAT [facility] [address] [address] Performing Lab: [place] OMEGAT [facility] [address] [address] WBC 7.0 4.5-11.0 RBC 4.54 4.23-5.66 HGB [...] ecimen Type: PLASMA Comment: Tests performed on In Motion Technology (889) SN:[id number] Ordering Provid er: ISATU TODD Report Released Date/Time: Dec 08, 2021 10:23 AM Reporting Lab: [facility] [address] [address] Performing Lab: [facility] [address] [address] MAGNESIUM 1.6 1.6-2.6 Dec 09, 2021 [facility] P4 GLU,BUN,CREAT,LYTES,CA Speci men Type: PLASMA 06:46 AM [facility] Comment: Tests performed on In Motion Technology (405) SN:[id number] Ordering Provid er: ISATU TODD Report Released Date/Time: Dec 08, 2021 05:00 PM Reporting Lab: [facility] [address] [address] Performing Lab: [facility] [address] [address] UREA NITROGEN 6 L 7-25 SODIUM 134 [...] [facility] [address] [address] Performing Lab: [facility] [address] [address] WBC 7.1 4.5-11.0 RBC 4.40 4.23-5.66 HGB [...] 0.00 0-0 Dec 08, 2021 06:39 AM [place] T [facility] MAGNESIUM Sp ecimen Type: PLASMA Comment: Testin g Performed on In [employer] Technology (405) SN:[id number] Ordering Provid er: ISATU TODD Report Released Date/Time: Dec 07, 2021 10:32 AM Reporting Lab: [facility] [address] [address] Performing Lab: [facility] [address] [address] MAGNESIUM 1.5 L 1.6-2.6 Dec 08, 2021 [place] [employer] T P4 GLU,BUN,CREAT,LYTES,CA Speci men Type: PLASMA 06:39 AM [facility] Comment: Testin g Performed on In Motion Technology (405) SN:[id number] Ordering Provid er: ISATU TODD Report Released Date/Time: Dec 07, 2021 10:32 AM Reporting Lab: [employer] T [facility] [address] [address] Performing Lab: [facility] [address] [address] UREA NITROGEN 6 L 7-25 SODIUM 136 135-145 POTASSIUM 3.3 L 3.5-5.0 CHLORIDE 104 100-110 CARBON DIOXIDE 22 20-30 ANION GAP 10 4-16 GLUCOSE 133 H 65-100 CREATININE 0.76 0.5-1.5 CALCIUM 8.4 L 8.5-10.5 eGFR(CKD-EPI 2020) >90.0 >60 Dec 08, 2021 06:39 AM [place] [employer] T [facility] CBC PROFILE Sp ecimen Type: BLOOD No comment enter ed. Ordering Provid er: ISATU TODD Report Released Date/Time: Dec 07, 2021 10:32 AM Reporting Lab: [facility] [address] [address] Performing Lab: [facility] [address] [address] WBC 8.4 4.5-11.0 RBC 4.75 4.23-5.66 HGB [...] 0-0 Dec 07, 2021 [facility] P4 GLU,BUN,CREAT,LYTES,CA Speci men Type: PLASMA 06:42 AM [facility] Comment: Tests performed on In Motion Technology (405 SN:[id number] Ordering Provid er: PORFIRIO WALTERS Report Released Date/Time: Dec 06, 2021 06:57 PM Reporting Lab: [facility] [address] [address] Performing Lab: [facility] [address] [address] UREA NITROGEN 9 7-25 SODIUM 135 135-145 POTASSIUM 3.5 3.5-5.0 CHLORIDE 103 100-110 CARBON DIOXIDE 22 20-30 ANION GAP 10 4-16 GLUCOSE 92 65-100 CREATININE 0.73 0.5-1.5 CALCIUM 8.0 L 8.5-10.5 eGFR(CKD-EPI 2020) >90.0 >60 Dec 07, 2021 06:42 [place] LIVER PROFILE Specimen Typ e: PLASMA AM [facility] Comment: Tests performed on [employer] (405) SN:[id number] Ordering Provid er: PORFIRIO WALTERS Report Released Date/Time: Dec 06, 2021 06:57 PM Reporting Lab: [facility] [address] [address] Performing Lab: [facility] [address] [address] PROTEIN, TOTAL 5.7 L 6.0-8.5 ALBUMIN 2.4 L 3.2-5.0 BILIRUBIN, TOTAL 0.4 0.2-1.2 ALKALINE PHOSPHATASE 109 40-150 ALT(SGPT) 10 7-52 AST(SGOT) 15 5-34 FIB-4 SCORE 1.92 <2.67 Dec 07, 2021 06:42 AM [place] [facility] CBC PROFILE Specimen Type: BLOOD [facility] No comment enter ed. Ordering Provid er: PORFIRIO WALTERS Report Released Date/Time: Dec 06, 2021 06:57 PM Reporting Lab: [facility] [address] [address] Performing Lab: [facility] [address] [address] WBC 5.7 4.5-11.0 RBC 4.15 L 4.23-5.66 [...] [facility]AM[facility] %) AUTOMATED Comment: Tests performed on In Motion Technology (405) SN:[id number] Ordering Provid er: ISATU TODD Report Released Date/Time: Dec 07, 2021 10:28 AM Reporting Lab: [place] [facility] [address] [address] Performing Lab: [place] [facility] [address] [address] RETICULOCYTES (%) AUTOMATED 1.23 0. 6-2.0 RETICULOCYTES (ABS) AUTOMATED 0.052 0.030-0.090 Dec 06, 2021 09:45 [place] MRSA SURVL NARES Specimen Ty pe: NARES PM [facility] DNA No comment enter ed. Ordering Provid er: ALVARO VARGHESE Report Released Date/Time: Dec 07, 2021 02:20 AM Reporting Lab: [place] [facility] [address] [address] Performing Lab: [place] [facility] [address] [address] MRSA SURVL NARES DNA NEGATIVE NEGATIVE Dec 06, 2021 06:00 [place] URINALYSIS W/REFLEX TO Speci men Type: URINE PM [facility] CULTURE No comment enter ed. Ordering Provid er: JELANI SÁNCHEZ Report Released Date/Time: Dec 06, 2021 11:57 AM Reporting Lab: [place] [facility] [address] [address] Performing Lab: [place] [facility] [address] [address] URINE COLOR Arlin YELLOW SPECIFIC GRAVITY 1.029 [...] 21, [place]IANT Comment: https://www.cdc.gov/coronavirus/2019-ncov/cases-updates/variant- surveillance/variant-info.html The [employer] A/S SARS CoV 2 Burstly Research Assay-GX is a next-generation sequencing (NGS) assa 2021 [facility] SEQUENCING y that determine s the complete genome sequence of the SARS-CoV-2 virus. The assay contains variant-tolerant primers to broaden and improve the coverage for variant detection and increase the sensitivity 12:00 [facility] PNL(WH) of the panel to enable detection from lower viral titer samples. The assay is run on the [employer] Sequencer, which performs automated library preparation, sequencing, analysis, and reporting. PM The sequence an alysis includes determination of viral phylogenetic lineage by comparison to the reference strain Wuhan-Hu-1, GenBank: [id number]. Sequence determination may not be possible owing [...] Lab: [facility] [address] [address] Performing Lab: [facility] [address] [facility] [address] SARS-CoV-2 CLADE() 22C (OMICRON) SARS-CoV-2 LINEAGE() BA.2.12.1 Dec 06, 2021 12:00 [facility] COVID-19 AG SCREEN Specimen Type: NASAL CAVITY PM [facility] PANEL BINAX(405) Comment: Testi ng Performed By: Mike Briscoe Ordering Provid er: JELANI SÁNCHEZ Report Released Date/Time: Dec 08, 2021 08:23 AM Reporting Lab: [facility] [address] [address] Performing Lab: [facility] [address] [address] COVID-19 AG SCRN(wrj BINAX) POSITIVE HH NE G Dec 06, 2021 12:00 PM [facility] TROPONIN II Sp ecimen Type: PLASMA Comment: Tests performed on Pham Trash Collector (405) SN:[id number] Ordering Provid er: JELANI SÁNCHEZ Report Released Date/Time: Dec 06, 2021 11:57 AM Reporting Lab: [facility] [address] [place] [facility] [place] [address] Performing Lab: [facility] [address] [address] TROPONIN II 0.03 0.00-0.29 Dec 06, 2021 12:00 PM [facility] LIVER PROFILE Sp ecimen Type: PLASMA Comment: Testin g Performed on [employer]am [employer]ash Collector (405) SN:[id number] Ordering Provid er: JELANI SÁNCHEZ Report Released Date/Time: Dec 06, 2021 11:57 AM Reporting Lab: [facility] [address] [address] Performing Lab: [facility] [address] [address] PROTEIN, TOTAL 6.6 6.0-8.5 ALBUMIN 2.8 L 3.2-5.0 BILIRUBIN, TOTAL 0.6 0.2-1.2 ALKALINE PHOSPHATASE 134 40-150 ALT(SGPT) 13 7-52 AST(SGOT) 18 5-34 FIB-4 SCORE 1.94 <2.67 Dec 06, 2021 12:00 PM [facility] BNP(P) Sp ecimen Type: PLASMA Comment: Tests performed on Pham Trash Collector (405) SN:[id number] Ordering Provid er: JELANI SÁNCHEZ Report Released Date/Time: Dec 06, 2021 11:57 AM Reporting Lab: [facility] [address] [address] Performing [facility]: [facility] [address] [address] BNP(P) 224.8 H 10-100 Dec 06, 2021 [place] P4 GLU,BUN,CREAT,LYTES,CA Speci men Type: PLASMA 12:00 PM [facility] Comment: Testin g Performed on Pham Trash Collector (405) SN:[id number] Ordering Provid er: JELANI SÁNCHEZ Report Released Date/Time: Dec 06, 2021 11:57 AM Reporting Lab: [facility] [address] [address] Performing [facility]: [facility] [address] [address] UREA NITROGEN 13 7-25 SODIUM 138 135-145 POTASSIUM 3.8 3.5-5.0 CHLORIDE 103 100-110 CARBON DIOXIDE 23 20-30 ANION GAP 12 4-16 GLUCOSE 105 H 65-100 CREATININE 0.90 0.5-1.5 CALCIUM 8.7 8.5-10.5 eGFR(CKD-EPI 2020) >90.0 >60 Dec 06, 2021 [place] COVID-19+FLU/RSV DIAGNOSTIC Spe cimen Type: NASOPHARYNX 12:00 PM [facility] PANEL(405) Comment: Tests performed on The [employer] (405) Critical results called to and read back by: ALESHIA WILKINSON RN 12/06/21 @ 1312 Ordering Provid er: JELANI SÁNCHEZ Report Released Date/Time: Dec 06, 2021 11:57 AM Reporting Lab: [facility] [address] [address] Performing Lab: [place] [facility] [address] [address] FLU A(PCR) NEGATIVE NEGATIVE FLU B(PCR) NEGATIVE NEGATIVE RSV(PCR) NEGATIVE NEGATIVE COVID-19([id number]) DETECTED HH NO T DETECTED Dec 06, 2021 12:00 [facility] PROFILE Sp ecimen Type: BLOOD No comment enter ed. Ordering Provid er: JELANI SÁNCHEZ Report Released Date/Time: Dec 06, 2021 11:57 AM Reporting Lab: [facility] [address] [address] Performing Lab: [facility] [address] [address] WBC 7.2 4.5-11.0 RBC 4.86 4.23-5.66 HGB [...] 11, 0 [place] 2021 08:49 [place] [facility] Social [...] took place. Date/Time Smoking Status/Tobacco Use Comment [facility] Apr 01, 2020 01:16 [...] W/WO CONTRAST: MARYELLEN LONG LUCAS LARES N [id number] -1950 [facility] Exm Date: DEC 13, 2021@12:57 Req Phys: ISATU TODD Loc: OP Unknown/0 12-15-2021@13:20 Img Loc: MRI IMAGING (OOS) Service: ZGENERAL MEDICINE (Case [id number] COMPLETE) MRI ABDOMEN W/WO CONTRAST (M RI Detailed) CPT:35883 Reason for Study: further characterization of a [...] new lyphadenopathy REQUESTING MD: Isatu Todd PAGER: [phone] PHONE: [phone] Weight: 232.2 lb [105.32 kg] (12/12/2021 05:00) [...] will need to arrange for a front end driver to take him/her home after the [...] 15, 2021 Date Verified: DEC 15, 2021 Academic Affairs Specialist E-Sig:/ES/MARYELLEN LONG Report: MRI ABDOMEN W/WO [...] MALIGNANCY Primary Interpreting Staff: Staff AMELIA THOMAS (Academic Affairs Specialist) / Dec 10, 2021 09:[address] ABDOMEN & PELVIS: [facility] L[facility] N [id number] -1950 M SERVICE [facility] Exm Date: DEC 10, 2021@09:30 Req Phys: ISATU TODD Loc: 1S MED/12-10@10:57 Img Loc: CT SCAN (OOS) Service: [facility] MEDICINE (Case [id number] COMPLETE) CT ABD & PELVIS WITHOUT CONT RAST (CT Detailed) CPT:03436 Reason for Study: 71 yo male with [...] INDEX - NO HEIGHTS FOUND Pager number: [phone] STAT orders MUST be call ed to RADIOLOGY [phone] to speak to the appropriate certified technician specialist. Report Status: Verified Date Reported: DEC 10, 2021 Date Verified: DEC 10, 2021 Academic Affairs Specialist E-Sig: Report: EXAM: CT abdomen and [...] ph nodes. READING PHYSICIAN: Ramone Munoz D.O. [phone] 12/10/2021 10:55 EDT [facility] [phone] (For Medical Practitioner Use Only ) [address] [facility], [facility] [address], [address] [place] [address] Attention Patients / Veterans: If you have ques tions or concerns about these test results, please contact your o rdering provider or primary care team. Primary Diagnostic Code: SIGNIFICANT ABNORMALIT Y, ATTN NEEDED Primary Interpreting Staff: RADIOLOGY,OUTSIDE SERVICE, Staff Physician / Dec 09, 2021 07:34 AM BASW (MODIFIED): JESSIE CHENEY TARA ER JCT LUCAS MEEK [id number] -1950 M [facility] Exm Date: DEC 09, 2021@07:34 Req Phys: ISATU TODD Yao Manjarrez Loc: 1S MED/12-09@11:26 Img Loc: XRAY (OOS) Service: [facility] MEDICINE (Case [id number] COMPLETE) BASW (MODIFIED) (RAD Detaile d) CPT:81180 Contrast Media : Barium Reason for Study: dysphagia ?esophageal spasm Clinical History: Report Status: Verified Date Reported: DEC 09, 2021 Date Verified: DEC 09, 2021 Academic Affairs Specialist E-Sig:/ES/JESSIE CHENEY Report: BASW (MODIFIED) , [...] REQUIRED Primary Interpreting Staff: JESSIE CHENEY, RADIOLOGIST (Academic Affairs Specialist) /TLC Dec 06, 2021 12:[address] CHEST (INCLUDES ADRENALS): JESSIE CHENEY [facility] [id number] -1950 [facility] Ex[facility] Date: DEC 06, 2021@12:59 Req Phys: GONZALOJELANI Loc: [facility] ED DAYS M 1RD (Req'g Loc) Img Loc: CT SCAN (OOS) Service: Unknown (Case [id number] COMPLETE) CT THORAX W/O CONT (CT Detai led) CPT:86740 Reason for Study: Opacification right chest Clinical History: No contrast allergy BUN: 13 (12/06/21 12:00) CREATI: 0.90 (12/06/21 12:00) eGFR 05/16/21 09:43 52 L Weight: 232.6 lb [105.51 kg] (12/06/2021 11:40) BODY MASS INDEX - NO HEIGHTS FOUND Pager number: [phone] STAT orders MUST be called t o RADIOLOGY [phone] to speak to the appropriate certified technician specialist. Indications - Other: Opacification right chest, covid positive, lung cancer histo Report Status: Verified Date Reported: DEC 06, 2021 Date Verified: DEC 06, 2021 Academic Affairs Specialist E-Sig:/ES/JESSIE CHENEY Report: CT THORAX W/O [...] REQUIRED Primary Interpreting Staff: JESSIE CHENEY, RADIOLOGIST (Academic Affairs Specialist) Primary Interpreting Resident: PRINCE CHAMPION, Resident /BR Dec 06, 2021 11:58 AM CHEST SINGLE VIEW: JESSIE CHENEYT LUCAS MEEK N [id number] -1950 M [facility] Exm Date: DEC 06, 2021@11:58 Req Phys: JELANI SÁNCHEZ Pat Loc: [facility] ED DAYS M 1RD (Req'g Loc) Img Loc: XRAY (OOS) Service: Unknown (Case [id number] COMPLETE) CHEST SINGLE VIEW (RAD Detai led) CPT:79748 Proc Modifiers : PORTABLE EXAM Reason for Study: SOB, home covid test positive Clinical History: Report Status: Verified Date Reported: DEC 06, 2021 Date Verified: DEC 06, 2021 Academic Affairs Specialist E-Sig:/ES/JESSIE CHENEY Report: Exam type: Chest [...] REQUIRED Primary Interpreting Staff: JESSIE CHENEY, RADIOLOGIST (Academic Affairs Specialist) /TLC Pathology Reports: +/- 30 days [...] [facility] [CLIA# [id number]] [address] [place] [address] - - - - - - [...] automatically d ocumented from SURGERY package case #[id number] Field (#32) PRINCIPAL PRE-OP DIAGNOSIS, (#.72) OTHER [...] automatically d ocumented from SURGERY package case #[id number] Field (#34) PRINCIPAL POST-OP DIAG, (#.74) OTHER [...] Label: Lucas Meek Paperwork: Lucas Meek Cassette: [id number];..;KALYANI;.;405;[phone] Specimen is labeled: ES bx Received in formalin are several pieces of pale boyd and brown tissue, 1.2 x 0.7 cm in aggregate. Submitted entirely in 1 cassette [id number];..;KALYANI;.;405;[id number] SAW 12/15/2021 Microscopic exam: *+* MODIFIED REPORT [...] report in rendering the final pathologic diagnosis. [address] [address] CPT: 80759 /emely/ NIURKA Yeung MD Signed Jan 03, 2022@10:28 Performing Laboratory: Surgical Pathology Report Performed By: [facility] [CLIA# [id number]] [address] [place] [address] $FTR - - - - - [...] - - LUCAS MEEK STANDARD FORM 515 ID:[id number] SEX:M :1950 AGE: 71 LOC: SDM END [...] $APHDR Reporting Lab: [facility] [CLIA# [id number]] [address] [place] [address] - - - - - - [...] automatically d ocumented from SURGERY package case #[id number] Field (#32) PRINCIPAL PRE-OP DIAGNOSIS, (#.72) OTHER [...] automatically d ocumented from SURGERY package case #[id number] Field (#34) PRINCIPAL POST-OP DIAG, (#.74) OTHER POSTOP DIAGS Esophageal cancer Surgeon/physician: MICHELLE CALEOR Attending Surgeon: Kyle Saenz MD =-=-=-=-=-=-=-=-=-=-=-=-=-=- =-=-=-=-=-=-=-=-=-=-=-=-=-=-=-=-=-=-=-=-=-=-=-=-=-= [...] Label: Lucas Meek Paperwork: Lucas Meek Cassette: [id number];..;KALYANI;.;405;[id number] Specimen is labeled: ES bx Received in formalin are several pieces of pale boyd and brown tissue, 1.2 x 0.7 cm in aggregate. Submitted entirely in 1 cassette [id number];..;KALYANI;.;405;[id number] SAW 12/15/2021 Microscopic exam: DIAGNOSIS: A. 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 Kendell long. TIARA Coombs was notified on 12/21/21. The attending pathologist who signature mansoor ears on this report has reviewed all diagnostic slides and has edited t he gross and/or microscopic portion of this report in rendering the final pathologic diagnosis. [address] [address] CPT: 47382 /emely/ NIURKA Yeung MD Signed Dec 21, 2021@11:46 Performing Laboratory: Surgical Pathology Report Performed By: [facility] [CLIA# [id number]] [address] [place] [address] $FTR - - - - - [...] - - LUCAS MEEK STANDARD FORM 515 ID:[id number] SEX:M :1950 AGE: 71 LOC: [facility] END PCP: Isatu Todd /charmaine Yeung MD Signed: 12/21/2021 11:46 Dec 06, 2021 03:30 PM LR MICROBIOLOGY REPORT: [facility] Reporting Lab: [facility] [CLIA# [id number]] [address] [place] [address] Accession [UID]: [id number] [[id number]] Receiv ed: Dec 06, 2021@16:14 Collection sample: BLOOD CUL T BOTTLE(NIRMAL/AERO)Collection date: Dec 06, 2021 15:30 Site/Specimen: BLOOD Provider: JELANI SÁNCHEZ Comment on specimen: LAC Test(s) ordered: BLOOD CULTURE ANAEROBI C....... completed: Dec 12, 2021 06:18 * BACTERIOLOGY FINAL REPORT => Dec 12, 2021 06:1 8 TECH CODE: [id number] Bacteriology Remark(s): NO GROWTH IN 5 DAYS =--=--=--=--=--=--=--=--=--=--=--=--=--= --=--=--=--=--=--=--=--=--=--=--=--=-- Performing Laboratory: Bacteriology Report Performed By: [facility] [CLIA# [id number]] [address] [place] [address] Dec 06, 2021 03:30 PM LR MICROBIOLOGY REPORT: [facility] Reporting Lab: [facility] [CLIA# [id number]] [address] [place] [address] Accession [UID]: [id number] [[id number]] Receiv ed: Dec 06, 2021@16:14 Collection sample: BLOOD CUL T BOTTLE(NIRMAL/AERO)Collection date: Dec 06, 2021 15:30 Site/Specimen: BLOOD Provider: JELANI SÁNCHEZ Comment on specimen: LAC Test(s) ordered: BLOOD CULTURE AEROBIC. ........ completed: Dec 12, 2021 06:17 * BACTERIOLOGY FINAL REPORT => Dec 12, 2021 06:1 7 TECH CODE: [id number] Bacteriology Remark(s): NO GROWTH IN 5 DAYS =--=--=--=--=--=--=--=--=--=--=--=--=--= --=--=--=--=--=--=--=--=--=--=--=--=-- Performing Laboratory: Bacteriology Report Performed By: [facility] [CLIA# [id number]] [address] [place] [address]
--- OUTSIDE RECORDS SUMMARY | 2022-01-19 09:10 | XMS_ITS ---
DAILY HOSPITALIZATION DATA [facility] Encounter Summary Created on:December 11, 2021 Patient:LUCAS MEEK Sex:Male :1950 Author Organization [facility] Address [address] [place] [id number] Support Name Relationship Address Phone YUSRA MEEK Unavailable [address] [place] [address] YUSRA MEEK Unavailable [address] [place] [facility] [place] [address] CLAY MOSLEY Unavailable Unavailable SJ SANTACRUZ Unavailable [...] MEDICARE MEDICARE PART Jun 18, PART A [id number] KALYANI PATIENT (WNR) (M) A 2016 13A 1 UGLAS MEDICARE MEDICARE PART Jun 18, PART B [id number] MEEK DO PATIENT (WNR) (M) B 2017 VH81 2 [place]AS MEDICARE MEDICARE PART Jun 18, PART A [id number] KALYANIDO PATIENT (WNR) (M) A 2017 VH81 2 [place]AS MEDICARE MEDICARE PART Jun 18, PART B [id number] DO KALYANI PATIENT (WNR) (M) B 2016 13A 1 U[place]AS UNITED MEDICARE MCR(Jun 18 [id number] Luz MEEK PATIENT HEALTHCARE ADVANTAGE NR) 2021 37 0 UGLAS MCR (WNR) Selected Encounter This section includes the information on [place] at [place] for the Encounter. Date/Time Encounter Type Encounter Description Reason Provider Source Dec 11, 2021 07:51 Inpatient Visit DAILY HOSPITALIZATION DATA AM [facility] Encounter Template Text not used by [...] AM AMBULATORY - NONE [place] [facility] Jan 06, 2022 02:00 PM [place] [facility] Jan 10, 2022 11:30 AM AMBULATORY - MEDICINE [facility] Jan 24, 2022 08:00 [place] [facility] Feb 21, 2022 10:00 AM AMBUL[place] [facility] Mar 21, 2022 10:30 [...] The data comes from all [place] treatment [facility]. Test Date/Time Test Type Test Details Facility Name October 31, 2021 07:37 AM Consult Order [facility]ARE-EGD [facility] Cons [facility] November 15, 2021 10:37 AM Consult Order [facility] CARE-PODIATRY [facility] Dec 06, 2021 12:52 PM Pharmacy [...] [place] OUTPATIENT Cons [facility] Jan 15, 2022 10:08 PM Consult Order [facility] CARE-PALLIATIVE CARE [facility] Lab Results: +/- 30 days of [...] Range Comment Dec 15, 2021 [place] P4 GLU,BUN,CREAT,LYTES,CA Speci men Type: PLASMA 06:43 AM [facility] Comment: Tests performed on InishTech (405) SN:[id number] Ordering Provid er: ISATU TODD Report Released Date/Time: Dec 11, 2021 07:42 AM Reporting Lab: [facility] T [facility] [address] [facility] [address] Performing Lab: [facility]T [facility] [address] [facility] [address] UREA NITROGEN 9 7-25 SODIUM 137 135-145 POTASSIUM 3.8 3.5-5.0 CHLORIDE 105 100-110 CARBON DIOXIDE 26 20-30 ANION GAP 6 4-16 GLUCOSE 102 H 65-100 CREATININE 0.64 0.5-1.5 CALCIUM 8.1 L 8.5-10.5 eGFR(CKD-EPI 2020) >90.0 >60 Dec 15, 2021 06:43 AM [facility]T [facility] CBC PROFILE Sp ecimen Type: BLOOD No comment enter ed. Ordering Provid er: ISATU TODD Report Released Date/Time: Dec 10, 2021 07:22 AM Reporting Lab: [facility] [address] [facility] [address] Performing Lab: [facility]T [facility] [address] [facility] [address] WBC 5.7 4.5-11.0 RBC 4.22 L 4.23-5.66 [...] CYTOGENETIC Specimen Type: ESOPHAGUS 02:59 PM [facility] [employer]) Comment: ~For T est: CYTOGENETIC FISH([employer] [facility] [employer]) ~FISH HER 2 NUE, FFPE See full report in Catapult Image display viewer/tab#LAB-Reference Ordering Provid er: NIURKA MILLER Report Released Date/Time: Dec 21, 2021 12:11 PM Reporting Lab: [facility] [address] [facility] [address] Performing Lab: [facility] CYTOGENETIC FISH([facility] [employer]) comment Dec 14, 2021 [facility] P4 GLU,BUN,CREAT,LYTES,CA Speci men Type: PLASMA 06:27 AM [facility] Comment: Tests performed on InishTech (405) SN:[id number] Ordering Provid er: ISATU TODD Report Released Date/Time: Dec 11, 2021 07:42 AM Reporting Lab: [facility] [address] [facility] [address] Performing Lab: [facility] [address] [facility] [address] UREA NITROGEN 10 7-25 SODIUM 137 135-145 [...] Reporting Lab: [facility] [address] [facility] [address] Performing Lab: [facility] [address] [facility] [address] WBC 6.0 4.5-11.0 RBC 4.29 4.23-5.66 HGB [...] [facility] Comment: Tests performed on InishTech (405) SN:[id number] Ordering Provid er: ISATU TODD Report Released Date/Time: Dec 11, 2021 07:42 AM Reporting Lab: [facility] [address] [facility] [address] Performing Lab: [facility] [address] [facility] [address] UREA NITROGEN 12 7-25 SODIUM 136 135-145 [...] Reporting Lab: [facility] [address] [facility] [address] Performing Lab: [facility] [address] [facility] [address] WBC 5.6 4.5-11.0 RBC 4.28 4.23-5.66 HGB [...] [facility] Comment: Tests performed on InishTech (405) SN:[id number] Ordering Provid er: ISATU TODD Report Released Date/Time: Dec 11, 2021 07:42 AM Reporting [facility]: [facility] [address] [facility] [address] Per[facility]: [facility] [address] [facility] [address] UREA NITROGEN 11 7-25 SODIUM 139 135-145 [...] AM Reporting Lab: [facility] [address] [facility] [address] Performing Lab: [facility] [address] [facility] [address] WBC 5.5 4.5-11.0 RBC 4.37 4.23-5.66 HGB [...] 0.00 0-0 Dec 12, 2021 06:00 AM BIXIT [facility] PHOSPHORUS Sp ecimen Type: PLASMA Comment: Testin g Performed on InishTech (405) SN:[id number] Ordering Provid er: ISATU TODD Report Released Date/Time: Dec 12, 2021 08:24 AM Reporting Lab: [place] BerylliumT [facility] [address] [facility] [address] Performing Lab: [place] Beryllium[facility] [address] [facility] [address] PHOSPHORUS 3.1 2.5-5.0 Dec 12, 2021 06:00 AM BIXIT MedTel24MROC MAGNESIUM Sp ecimen Type: PLASMA Comment: Testin g Performed on InishTech (405) SN:[id number] Ordering Provid er: ISATU TODD Report Released Date/Time: Dec 12, 2021 08:24 AM Reporting Lab: [place] [facility]erylliumT [facility] [address] [facility] [address] Performing Lab: [place] [facility] [address] [facility] [address] MAGNESIUM 1.8 1.6-2.6 Dec 11, 2021 06:15 AM [facility] MedTel24MROC ELECTROLYTES Sp ecimen Type: PLASMA Comment: Tests performed on InishTech (405) SN:[id number] Ordering Provid er: ISATU TODD Report Released Date/Time: Dec 10, 2021 07:22 AM Reporting Lab: [place] [facility] [address] [facility] [address] Performing Lab: [place] [facility] [address] [facility] [address] SODIUM 137 135-145 POTASSIUM 4.3 3.5-5.0 CHLORIDE 108 100-110 CARBON DIOXIDE 20 20-30 ANION GAP 9 4-16 Dec 11, 2021 06:15 AM [place] CapricorT [facility] CBC PROFILE Sp ecimen Type: BLOOD Comment: Result s checked Ordering Provid er: ISATU TODD Report Released Date/Time: Dec 10, 2021 07:22 AM Reporting Lab: [place] OMEGAT [facility] [address] [facility] [address] Performing Lab: [place] OMEGAT [facility] [address] [facility] [address] WBC 5.8 4.5-11.0 RBC 4.37 4.23-5.66 HGB [...] ecimen Type: PLASMA Comment: Tests performed on InishTech (329) SN:[id number] Results checked Ordering Provid er: ISATU TODD Report Released Date/Time: Dec 11, 2021 07:44 AM Reporting Lab: [facility] [address] [facility] [address] Performing Lab: [place] OMEGAT ILMROC [address] [facility] [address] PHOSPHORUS 3.0 2.5-5.0 Dec 10, 2021 08:05 AM [place] [facility] MAGNESIUM Sp ecimen Type: PLASMA Comment: [place] [id number] on Dec 10, 2021@08:31 Tests performed on InishTech (405) SN:[id number] Ordering Provid er: ISATU TODD Report Released Date/Time: Dec 10, 2021 07:22 AM Reporting Lab: [place] [facility] [address] [place] [facility] [place] [place] [address] Performing Lab: [place] [facility] [address] [place] [facility] [place] [address] MAGNESIUM 1.7 1.6-2.6 Dec 10, 2021 08:05 AM [place] [facility] PHOSPHORUS Sp ecimen Type: PLASMA Comment: [place] [id number] on Dec 10, 2021@08:31 Tests performed on InishTech (405) SN:[id number] Ordering Provid er: ISATU TODD Report Released Date/Time: Dec 10, 2021 07:22 AM Reporting Lab: [place] [facility] [address] [place] [facility] [place] [address] Performing Lab: [place] [facility] [address] [place] [facility] [place] [address] PHOSPHORUS 1.8 L 2.5-5.0 Dec 10, 2021 08:05 AM [place] UREA NITROGEN Specimen Type: PLASMA [facility] Comment: [place] [id number] on Dec 10, 2021@08:31 Tests performed on InishTech (405) SN:[id number] Ordering Provid er: ISATU TODD Report Released Date/Time: Dec 10, 2021 07:22 AM Reporting Lab: [place] [facility] [address] [place] [facility] [place] [address] Performing Lab: [place] [facility] [address] [place] [facility] [place] [address] UREA NITROGEN 8 7-25 Dec 10, 2021 08:05 AM [place] [facility] ELECTROLYTES Sp ecimen Type: PLASMA Comment: [place] [id number] on Dec 10, 2021@08:31 Tests performed on InishTech (405) SN:[id number] Ordering Provid er: ISATU TODD Report Released Date/Time: Dec 10, 2021 07:22 AM Reporting Lab: [place] [facility] [address] [facility] [address] Performing Lab: [place] [facility] [address] [facility] [address] SODIUM 139 135-145 POTASSIUM 3.7 3.5-5.0 CHLORIDE 107 100-110 CARBON DIOXIDE 24 20-30 ANION GAP 8 4-16 Dec 10, 2021 08:05 AM [place] [facility] GLUCOSE Sp ecimen Type: PLASMA Comment: [place] [id number] on Dec 10, 2021@08:31 Tests performed on InishTech (405) SN:[id number] Ordering Provid er: ISATU TODD Report Released Date/Time: Dec 10, 2021 07:22 AM Reporting Lab: [place] [facility] [address] [facility] [address] Performing Lab: [place] [facility] [address] [facility] [address] GLUCOSE 144 H 65-100 Dec 10, 2021 08:05 AM [place] [facility] CALCIUM Sp ecimen Type: PLASMA Comment: [place] [id number] on Dec 10, 2021@08:31 Tests performed on InishTech (405) SN:[id number] Ordering Provid er: ISATU TODD Report Released Date/Time: Dec 10, 2021 07:22 AM Reporting Lab: [place] [facility] [address] [facility] [address] Performing Lab: [place] [facility] [address] [facility] [address] CALCIUM 8.3 L 8.5-10.5 Dec 10, 2021 08:05 AM [place] [facility] CBC PROFILE Sp ecimen Type: BLOOD No comment enter ed. Ordering Provid er: ISATU TODD Report Released Date/Time: Dec 10, 2021 07:22 AM Reporting Lab: [place] [facility] [address] [facility] [address] Performing Lab: [place] [facility] [address] [facility] [address] WBC 7.0 4.5-11.0 RBC 4.54 4.23-5.66 HGB [...] PLASMA AM [facility] PANEL Comment: [place] [id number] on Dec 10, 2021@08:31 Tests performed on InishTech (405) SN:[id number] Ordering Provid er: ISATU TODD Report Released Date/Time: Dec 10, 2021 07:22 AM Reporting Lab: [facility] [address] [facility] [address] Performing Lab: [facility] [address] [facility] [address] CREATININE 0.78 0.5-1.5 eGFR(CKD-EPI 2020) >90.0 >60 Dec 09, 2021 06:46 AM [place] [facility] MAGNESIUM Sp ecimen Type: PLASMA Comment: Tests performed on InishTech (405) SN:[id number] Ordering Provid er: ISATU TODD Report Released Date/Time: Dec 08, 2021 10:23 AM Reporting Lab: [place] [facility] [address] [facility] [address] Performing Lab: [place] [facility] [address] [facility] [address] MAGNESIUM 1.6 1.6-2.6 Dec 09, 2021 [facility] P4 GLU,BUN,CREAT,LYTES,CA Speci men Type: PLASMA 06:46 AM [facility] Comment: Tests performed on InishTech (405) SN:[id number] Ordering Provid er: ISATU TODD Report Released Date/Time: Dec 08, 2021 05:00 PM Reporting Lab: [facility] [address] [facility] [address] Performing Lab: [facility] [address] [facility] [address] UREA NITROGEN 6 L 7-25 SODIUM 134 [...] Reporting Lab: [facility] [address] [facility] [address] Performing Lab: [facility] [address] [facility] [address] WBC 7.1 4.5-11.0 RBC 4.40 4.23-5.66 HGB [...] 0.00 0-0 Dec 08, 2021 06:39 AM [place] T [facility] MAGNESIUM Sp ecimen Type: PLASMA Comment: Testin g Performed on InishTech (405) SN:[id number] Ordering Provid er: ISATU TODD Report Released Date/Time: Dec 07, 2021 10:32 AM Reporting Lab: [facility] [address] [facility] [address] Performing Lab: [facility] [address] [facility] [address] MAGNESIUM 1.5 L 1.6-2.6 Dec 08, 2021 [place] i'mma T P4 GLU,BUN,CREAT,LYTES,CA Speci men Type: PLASMA 06:39 AM [facility] Comment: Testin g Performed on InishTech (405) SN:[id number] Ordering Provid er: ISATU TODD Report Released Date/Time: Dec 07, 2021 10:32 AM Reporting Lab: [facility] T [facility] [address] [facility] [address] Performing Lab: [facility] [address] [facility] [address] UREA NITROGEN 6 L 7-25 SODIUM 136 135-145 POTASSIUM 3.3 L 3.5-5.0 CHLORIDE 104 100-110 CARBON DIOXIDE 22 20-30 ANION GAP 10 4-16 GLUCOSE 133 H 65-100 CREATININE 0.76 0.5-1.5 CALCIUM 8.4 L 8.5-10.5 eGFR(CKD-EPI 2020) >90.0 >60 Dec 08, 2021 06:39 AM [place] i'mma T [facility] CBC PROFILE Sp ecimen Type: BLOOD No comment enter ed. Ordering Provid er: ISATU TODD Report Released Date/Time: Dec 07, 2021 10:32 AM Reporting Lab: [facility] [address] [facility] [address] Performing Lab: [facility] [address] [facility] [address] WBC 8.4 4.5-11.0 RBC 4.75 4.23-5.66 HGB [...] NRBC 0.00 0-0 Dec 07, 2021 [facility] P4 GLU,BUN,CREAT,LYTES,CA Speci men Type: PLASMA 06:42 AM [facility] Comment: Tests performed on InishTech (405 SN:[id number] Ordering Provid er: PORFIRIO WALTERS Report Released Date/Time: Dec 06, 2021 06:57 PM Reporting Lab: [facility] [address] [facility] [address] Performing Lab: [facility] [address] [facility] [address] UREA NITROGEN 9 7-25 SODIUM 135 135-145 POTASSIUM 3.5 3.5-5.0 CHLORIDE 103 100-110 CARBON DIOXIDE 22 20-30 ANION GAP 10 4-16 GLUCOSE 92 65-100 CREATININE 0.73 0.5-1.5 CALCIUM 8.0 L 8.5-10.5 eGFR(CKD-EPI 2020) >90.0 >60 Dec 07, 2021 06:42 AM [place] [facility] CBC PROFILE Specimen Type: BLOOD [facility] No comment enter ed. Ordering Provid er: PORFIRIO WALTERS Report Released Date/Time: Dec 06, 2021 06:57 PM Reporting Lab: [facility] [address] [facility] [address] Performing Lab: [facility] [address] [facility] [address] WBC 5.7 4.5-11.0 RBC 4.15 L 4.23-5.66 [...] 0-0 Dec 07, 2021 06:42 [place] [facility] LIVER PROFILE Specimen Typ e: PLASMA AM [facility] Comment: Tests performed on InishTech 405 SN:[id number] Ordering Provid er: PORFIRIO WALTERS Report Released Date/Time: Dec 06, 2021 06:57 PM Reporting Lab: [facility] [address] [facility] [address] Performing Lab: [place] [facility] [address] [facility] [address] PROTEIN, TOTAL 5.7 L 6.0-8.5 ALBUMIN 2.4 L 3.2-5.0 BILIRUBIN, TOTAL 0.4 0.2-1.2 ALKALINE PHOSPHATASE 109 40-150 ALT(SGPT) 10 7-52 AST(SGOT) 15 5-34 FIB-4 SCORE 1.92 <2.67 Dec 07, [address] [place] [address] (ABS & Specimen Type: BLOOD 06:00 AM [facility] %) AUTOMATED Comment: Tests performed on InishTech (405) SN:[id number] Ordering Provid er: ISATU TODD Report Released Date/Time: Dec 07, 2021 10:28 AM Reporting Lab: [place] [facility] [address] [facility] [address] Performing Lab: [place] [facility] [address] [facility] [address] RETICULOCYTES (%) AUTOMATED 1.23 0. 6-2.0 RETICULOCYTES (ABS) AUTOMATED 0.052 0.030-0.090 Dec 06, 2021 09:45 [place] MRSA SURVL NARES Specimen Ty pe: NARES PM [facility] DNA No comment enter ed. Ordering Provid er: ALVARO VARGHESE Report Released Date/Time: Dec 07, 2021 02:20 AM Reporting Lab: [place] [facility] [address] [facility] [address] Performing Lab: [place] [facility] [address] [facility] [address] MRSA SURVL NARES DNA NEGATIVE NEGATIVE Dec 06, 2021 06:00 [place] URINALYSIS W/REFLEX TO Speci men Type: URINE PM [facility] CULTURE No comment enter ed. Ordering Provid er: JELANI SÁNCHEZ Report Released Date/Time: Dec 06, 2021 11:57 AM Reporting Lab: [place] [facility] [address] [facility] [address] Performing Lab: [place] [facility] [address] [facility] [address] URINE COLOR Arlin YELLOW SPECIFIC GRAVITY 1.029 [...] 21, [place] VARIANT Comment: https://www.cdc.gov/coronavirus/2019-ncov/cases-updates/variant- surveillance/variant-info.html The [employer] SARS CoV 2 SwingTime Research Assay-GX is a next-generation sequencing (NGS) assa 2021 [facility] SEQUENCING y that determine s the complete genome sequence of the SARS-CoV-2 virus. The assay contains variant-tolerant primers to broaden and improve the coverage for variant detection and increase the sensitivity 12:00 [facility] PNL(WH) of the panel to enable detection from lower viral titer samples. The assay is run on the [employer] Sequencer, which performs automated library preparation, sequencing, analysis, and reporting. PM The sequence an alysis includes determination of viral phylogenetic lineage by comparison to the reference strain Wuhan-Hu-1, GenBank: [id number]. Sequence determination may not be possible owing [...] [facility] [address] [facility] [address] Performing Lab: [facility] [address] [facility] [address] SARS-CoV-2 CLADE() 22C (OMICRON) SARS-CoV-2 LINEAGE() BA.2.12.1 Dec 06, 2021 12:00 [facility] COVID-19 AG SCREEN Specimen Type: NASAL CAVITY PM [facility] PANEL BINAX(405) Comment: Testi ng Performed By: Mike Briscoe Ordering Provid er: JELANI SÁNCHEZ Report Released Date/Time: Dec 08, 2021 08:23 AM Reporting Lab: [facility] [address] [facility] [address] Performing Lab: [facility] [address] [facility] [address] COVID-19 AG SCRN(wrj BINAX) POSITIVE HH NE G Dec 06, 2021 [facility] GLU,BUN,CREAT,LYTES,CA Speci men Type: PLASMA 12:00 PM [facility] Comment: Testin g Performed on Pham Sales Account Leader (405) SN:[id number] Ordering Provid er: JELANI SÁNCHEZ Report Released Date/Time: Dec 06, 2021 11:57 AM Reporting Lab: [facility] [address] [facility] [address] Performing Lab: [facility] [address] [facility] [address] UREA NITROGEN 13 7-25 SODIUM 138 135-145 POTASSIUM 3.8 3.5-5.0 CHLORIDE 103 100-110 CARBON DIOXIDE 23 20-30 ANION GAP 12 4-16 GLUCOSE 105 H 65-100 CREATININE 0.90 0.5-1.5 CALCIUM 8.7 8.5-10.5 eGFR(CKD-EPI 2020) >90.0 >60 Dec 06, 2021 12:00 PM [facility] LIVER PROFILE Sp ecimen Type: PLASMA Comment: Testin g Performed on Pham Sales Account Leader (405) SN:[id number] Ordering Provid er: JELANI SÁNCHEZ Report Released Date/Time: Dec 06, 2021 11:57 AM Reporting Lab: [place] [facility] [address] [facility] [address] Performing Lab: [facility]T [facility] [address] [facility] [address] PROTEIN, TOTAL 6.6 6.0-8.5 ALBUMIN 2.8 L 3.2-5.0 BILIRUBIN, TOTAL 0.6 0.2-1.2 ALKALINE PHOSPHATASE 134 40-150 ALT(SGPT) 13 7-52 AST(SGOT) 18 5-34 FIB-4 SCORE 1.94 <2.67 Dec 06, 2021 12:00 PM [facility] TROPONIN II Sp ecimen Type: PLASMA Comment: Tests performed on Pham Sales Account Leader (405) SN:[id number] Ordering Provid er: JELANI SÁNCHEZ Report Released Date/Time: Dec 06, 2021 11:57 AM Reporting Lab: [place] T [facility] [address] [facility] [address] Performing Lab: [facility] [address] [facility] [address] TROPONIN II 0.03 0.00-0.29 Dec 06, 2021 12:00 PM [facility] BNP(P) Sp ecimen Type: PLASMA Comment: Tests performed on Pham Sales Account Leader (405) SN:[id number] Ordering Provid er: JELANI SÁNCHEZ Report Released Date/Time: Dec 06, 2021 11:57 AM Reporting Lab: [facility] [facility] [address] [facility] [address] Performing Lab: [facility]T [facility] [address] [facility] [address] BNP(P) 224.8 H 10-100 Dec 06, 2021 [facility]T COVID-19+FLU/RSV DIAGNOSTIC Spe cimen Type: NASOPHARYNX 12:00 PM [facility] PANEL(405) Comment: Tests performed on Foody Genexpert (405) Critical results called to and read back by: ALESHIA WILKINSON RN 12/06/21 @ 1312 Ordering Provid er: JELANI SÁNCHEZ Report Released Date/Time: Dec 06, 2021 11:57 AM Reporting Lab: [place] [facility] [address] [facility] [address] Performing Lab: [place] [facility] [address] [facility] [address] FLU A(PCR) NEGATIVE NEGATIVE FLU B(PCR) NEGATIVE NEGATIVE RSV(PCR) NEGATIVE NEGATIVE COVID-19([id number]) DETECTED HH NO T DETECTED Dec 06, 2021 12:00 PM [facility] CBC PROFILE Sp ecimen Type: BLOOD No comment enter ed. Ordering Provid er: JELANI SÁNCHEZ Report Released Date/Time: Dec 06, 2021 11:57 AM Reporting Lab: [facility] [address] [id number] Performing Lab: [facility] [address] [id number] WBC 7.2 4.5-11.0 RBC 4.86 4.23-5.66 HGB [...] 2021 07:56 /min mm[Hg] RIVER PM T [facility] Dec 11, 3 WHITE 2021 07:49 RIVER PM T [facility] Dec 11, 98.3 F 98 127/83 18 /min 97 % 0 WHITE 2021 02:50 /min mm[Hg] RIVER PM T [facility] Dec 11, 0 WHITE 2021 01:57 RIVER PM T [facility] Dec 11, 0 WHITE 2021 08:49 RIVER AM [facility] Social [...] took place. Date/Time Smoking Status/Tobacco Use Comment [facility] Apr 01, 2020 01:16 PM QUIT [...] TOBACCO USE IN PAST YEAR CAREY MONTOYA [facility] Mar 16, 2016 12:50 [...] W/WO CONTRAST: MARYELLEN LONG LUCAS LARES N [id number] -1950 [facility] Exm Date: DEC 13, 2021@12:57 Req Phys: ISATU TODD Loc: OP Unknown/0 12-15-2021@13:20 Img Loc: MRI IMAGING (OOS) Service: ZGENERAL MEDICINE (Case [id number] COMPLETE) MRI ABDOMEN W/WO CONTRAST (M RI Detailed) CPT:64321 Reason for Study: further characterization of a [...] new lyphadenopathy REQUESTING MD: Isatu Todd PAGER: [phone] PHONE: [phone] Weight: 232.2 lb [105.32 kg] (12/12/2021 05:00) [...] PATIENT HAVE ANY OF THE FOLLOWING DAYA PRATIBAH OR ITEMS? 1. Does the patient have [...] patient will need to arrange for a log driver to take him/her home after the [...] 15, 2021 Date Verified: DEC 15, 2021 Mailing Jogger E-Sig:/ES/MARYELLEN LONG Report: MRI ABDOMEN W/WO CONTRAST [...] MALIGNANCY Primary Interpreting Staff: Staff AMELIA THOMAS (Mailing Jogger) / Dec 10, 2021 09:[address] ABDOMEN & PELVIS: [facility] L[facility] N [id number] -1950 M SERVICE [facility] Exm Date: DEC 10, 2021@09:30 Req Phys: ISATU TODD Loc: 1S MED/12-10@10:57 Img Loc: CT SCAN (OOS) Service: [facility] (Case [id number] COMPLETE) CT ABD & PELVIS WITHOUT CONT RAST (CT Detailed) CPT:15207 Reason for Study: 71 yo male with [...] INDEX - NO HEIGHTS FOUND Pager number: [phone] STAT orders MUST be call ed to RADIOLOGY [phone] to speak to the appropriate copy technician. Report Status: Verified Date Reported: DEC 10, 2021 Date Verified: DEC 10, 2021 Mailing Jogger E-Sig: Report: EXAM: CT abdomen and pelvis [...] ph nodes. READING PHYSICIAN: Ramone Munoz D.O. [phone] 12/10/2021 10:55 EDT [facility] National Teleradiology Program [phone] (For Medical Practitioner Use Only ) [address] [facility] [facility] [address], [address] [place] [address] Attention Patients / Veterans: If you have ques tions or concerns about these test results, please contact your o rdering provider or primary care team. Primary Diagnostic Code: SIGNIFICANT ABNORMALIT Y, ATTN NEEDED Primary Interpreting Staff: RADIOLOGY,OUTSIDE SERVICE, Staff Physician / Dec 09, 2021 07:34 AM BASW (MODIFIED): JESSIE CHENEY TARA ER JCT LUCAS MEEK [id number] -1950 M [facility] Exm Date: DEC 09, 2021@07:34 Req Phys: ISATU TODD Yao Manjarrez Loc: 1S MED/12-09@11:26 Img Loc: XRAY (OOS) Service: [facility] (Case [id number] COMPLETE) BASW (MODIFIED) (RAD Detaile d) CPT:81955 Contrast Media : Barium Reason for Study: dysphagia ?esophageal spasm Clinical History: Report Status: Verified Date Reported: DEC 09, 2021 Date Verified: DEC 09, 2021 Mailing Jogger E-Sig:/ES/JESSIE CHENEY Report: BASW (MODIFIED) , 12/09/2021 [...] REQUIRED Primary Interpreting Staff: JESSIE CHENEY, RADIOLOGIST (Mailing Jogger) /TLC Dec 06, 2021 12:[address] CHEST (INCLUDES ADRENALS): [facility]ESS[facility]ENEY [facility] [id number] -1950 [facility] Exm Date: DEC 06, 2021@12:59 Req Phys: GONZALOJELANI Loc: [facility] ED DAYS M 1RD (Req'g Loc) Img Loc: CT SCAN (OOS) Service: Unknown (Case [id number] COMPLETE) CT THORAX W/O CONT (CT Detai led) CPT:90305 Reason for Study: Opacification right chest Clinical History: No contrast allergy BUN: 13 (12/06/21 12:00) CREATI: 0.90 (12/06/21 12:00) eGFR 05/16/21 09:43 52 L Weight: 232.6 lb [105.51 kg] (12/06/2021 11:40) BODY MASS INDEX - NO HEIGHTS FOUND Pager number: [phone] STAT orders MUST be called t o RADIOLOGY [phone] to speak to the appropriate copy technician. Indications - Other: Opacification right chest, covid positive, lung cancer histo Report Status: Verified Date Reported: DEC 06, 2021 Date Verified: DEC 06, 2021 Mailing Jogger E-Sig:/ES/JESSIE CHENEY Report: CT THORAX W/O CONT [...] REQUIRED Primary Interpreting Staff: JESSIE CHENEY, RADIOLOGIST (Mailing Jogger) Primary Interpreting Resident: PRINCE CHAMPION, Resident /BR Dec 06, 2021 11:58 AM CHEST SINGLE VIEW: JESSIE CHENEYT LUCAS MEEK N [id number] -1950 M [facility] Exm Date: DEC 06, 2021@11:58 Req Phys: JELANI SÁNCHEZ Pat Loc: [facility] ED DAYS M 1RD (Req'g Loc) Img Loc: XRAY (OOS) Service: Unknown (Case [id number] COMPLETE) CHEST SINGLE VIEW (RAD Detai led) CPT:28563 Proc Modifiers : PORTABLE EXAM Reason for Study: SOB, home covid test positive Clinical History: Report Status: Verified Date Reported: DEC 06, 2021 Date Verified: DEC 06, 2021 Mailing Jogger E-Sig:/ES/JESSIE CHENEY Report: Exam type: Chest x-ray [...] REQUIRED Primary Interpreting Staff: JESSIE CHENEY, RADIOLOGIST (Mailing Jogger) /TLC Pathology Reports: +/- 30 days of [...] [facility] [CLIA# [id number]] [address] [place] [address] - - - - - - [...] automatically d ocumented from SURGERY package case #[id number] Field (#32) PRINCIPAL PRE-OP DIAGNOSIS, (#.72) OTHER [...] automatically d ocumented from SURGERY package case #[id number] Field (#34) PRINCIPAL POST-OP DIAG, (#.74) OTHER [...] Label: Lucas Meek Paperwork: Lucas Meek Cassette: [id number];..;KALYANI;.;405;[id number] Specimen is labeled: ES bx Received in formalin are several pieces of pale boyd and brown tissue, 1.2 x 0.7 cm in aggregate. Submitted entirely in 1 cassette [id number];..;KALYANI;.;405;[id number] SAW 12/15/2021 Microscopic exam: *+* MODIFIED REPORT [...] in rendering the final pathologic diagnosis. [address] [address] CPT: 47030 /emely/ NIURKA Yeung MD Signed Jan 03, 2022@10:28 Performing Laboratory: Surgical Pathology Report Performed By: [facility] [CLIA# [id number]] [address] [place] [address] $FTR - - - - - [...] - - LUCAS MEEK STANDARD FORM 515 ID:[id number] SEX:M :1950 AGE: 71 LOC: SDM END PCP: Isatu Todd /emely/ NIURKA MILLER Staff Signed: 01/03/2022 10:28 Dec 21, 2021 11:46 AM LR SURGICAL PATHOLOGY REPORT: STEFANY MILLER [facility] LOCAL TITLE: LR SURGICAL PATHOLOGY REPORT [facility] STANDARD TITLE: PATHOLOGY REPORT DATE OF NOTE: DEC 21, 2021@11:46:59 ENTRY DATE: DEC 21, 2021@11:46:59 AUTHOR: NIURKA MILLER EXP COSIGNER: URGENCY: STATUS: COMPLETED $APHDR Reporting Lab: [facility] [CLIA# [id number]] [address] [place] [address] - - - - - - [...] automatically d ocumented from SURGERY package case #[id number] Field (#32) PRINCIPAL PRE-OP DIAGNOSIS, (#.72) OTHER [...] automatically d ocumented from SURGERY package case #[id number] Field (#34) PRINCIPAL POST-OP DIAG, (#.74) OTHER [...] Label: Lucas Meek Paperwork: Lucas Meek Cassette: [id number];..;KALYANI;.;405;[id number] Specimen is labeled: ES bx Received in formalin are several pieces of pale boyd and brown tissue, 1.2 x 0.7 cm in aggregate. Submitted entirely in 1 cassette [id number];..;KALYANI;.;405;[id number] SAW 12/15/2021 Microscopic exam: DIAGNOSIS: A. 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 Kendell long. TIARA Coombs was notified on 12/21/21. The attending pathologist who signature mansoor ears on this report has reviewed all diagnostic slides and has edited t he gross and/or microscopic portion of this report in rendering the final pathologic diagnosis. [address] [address] CPT: 73805 /emely/ NIURKA Yeung MD Signed Dec 21, 2021@11:46 Performing Laboratory: Surgical Pathology Report Performed By: [facility] [CLIA# [id number]] [address] [place] [address] $FTR - - - - - [...] - - LUCAS MEEK STANDARD FORM 515 ID:[id number] SEX:M :1950 AGE: 71 LOC: [facility] END PCP: Isatu Todd /charmaine Yeung MD Signed: 12/21/2021 11:46 Dec 06, 2021 03:30 PM LR MICROBIOLOGY REPORT: [facility] Reporting Lab: [facility] [CLIA# [id number]] [address] [place] [address] Accession [UID]: [id number] [[id number]] Receiv ed: Dec 06, 2021@16:14 Collection sample: BLOOD CUL T BOTTLE(NIRMAL/AERO)Collection date: Dec 06, 2021 15:30 Site/Specimen: BLOOD Provider: JELANI SÁNCHEZ Comment on specimen: LAC Test(s) ordered: BLOOD CULTURE ANAEROBI C....... completed: Dec 12, 2021 06:18 * BACTERIOLOGY FINAL REPORT => Dec 12, 2021 06:1 8 TECH CODE: [id number] Bacteriology Remark(s): NO GROWTH IN 5 DAYS =--=--=--=--=--=--=--=--=--=--=--=--=--= --=--=--=--=--=--=--=--=--=--=--=--=-- Performing Laboratory: Bacteriology Report Performed By: [facility] [CLIA# [id number]] [address] [place] [address] Dec 06, 2021 03:30 PM LR MICROBIOLOGY REPORT: [facility] Reporting Lab: [facility] [CLIA# [id number]] [address] [place] [address] Accession [UID]: [id number] [[id number]] Receiv ed: Dec 06, 2021@16:14 Collection sample: BLOOD CUL T BOTTLE(NIRMAL/AERO)Collection date: Dec 06, 2021 15:30 Site/Specimen: BLOOD Provider: JELANI SÁNCHEZ Comment on specimen: LAC Test(s) ordered: BLOOD CULTURE AEROBIC. ........ completed: Dec 12, 2021 06:17 * BACTERIOLOGY FINAL REPORT => Dec 12, 2021 06:1 7 TECH CODE: [id number] Bacteriology Remark(s): NO GROWTH IN 5 DAYS =--=--=--=--=--=--=--=--=--=--=--=--=--= --=--=--=--=--=--=--=--=--=--=--=--=-- Performing Laboratory: Bacteriology Report Performed By: [facility] [CLIA# [id number]] [address] [place] [address]
--- OUTSIDE RECORDS SUMMARY | 2022-01-19 09:11 | XMS_ITS ---
DAILY HOSPITALIZATION DATA CAREY DOYLE [facility] Encounter Summary Created on:December 11, 2021 Patient:LUCAS MEEK Sex:Male :1950 Author Organization [facility] Address [address] [place] [id number] Support Name Relationship Address Phone YUSRA MEEK Unavailable [address] [place] [address] YUSRA MEEK Unavailable [address] [place] [facility] [place] [address] CLAY MOSLEY Unavailable Unavailable SJ SANTACRUZ Unavailable [...] MEDICARE MEDICARE PART Jun 18, PART A [id number] DO KALYANI PATIENT (WNR) (M) A 2016 13A 1 U[place]AS MEDICARE MEDICARE PART Jun 18, PART B [id number] DO KALYANI PATIENT (WNR) (M) B 2016 13A 1 [place] MEDICARE MEDICARE PART Jun 18, PART A [id number] KALYANIDO PATIENT (WNR) (M) A 2017 VH81 2 [place]AS MEDICARE MEDICARE PART Jun 18, PART B [id number] DO KALYANI PATIENT (WNR) (M) B 2017 VH81 2 [place] UNITED MEDICARE MCR(Jun 18 [id number] Luz MEEK PATIENT HEALTHCARE ADVANTAGE NR) 2021 37 0 [facility] (WNR) Selected Encounter This section includes the information on record at AL for the Encounter. Date/Time Encounter Type Encounter Description Reason Provider Source Dec 11, 2021 08:48 Inpatient Visit DAILY HOSPITALIZATION DATA AM [facility] Encounter Template Text not used by AL Plan of Treatment: Future Appointments (+ 6 months) and Future Tests (+/- 45 days) The Plan of Treatment section includes future care activities for the patient from all [place] treatmentfacilities. This section includes future appointments and [...] - [place] [facility] Jan 10, 2022 11:30 AM [facility] Jan 24, 2022 08:00 AM [place] [facility] Feb 21, 2022 10:00 AM [place] [facility] Mar 21, 2022 10:30 [...] The data comes from all [place] treatment [facility]. Test Date/Time Test Type Test Details Facility Name October 31, 2021 07:37 AM Consult Order COMMUNITY CARE-EGD [facility] Cons Filter Machine Operator's Choice November 15, 2021 10:37 AM Consult Order [facility] CARE-PODIATRY Cons Filter Machine Operator's Choice Dec 06, 2021 12:52 PM [place]acy [place] Infusion Order [facility] Dec 06, 2021 03:24 PM Pharmacy [place] [facility] Dec 06, 2021 03:40 PM Pharmacy [place] [facility] Dec 15, 2021 08:41 AM Consult Order SPEECH PATHOLOGY [place] OUTPATIENT Cons [facility] Filter Machine Operator's Choice Jan 15, 2022 10:08 PM Consult Order [facility] CARE-PALLIATIVE CARE Cons Filter Machine Operator's Choice Lab Results: +/- 30 [...] Reference Range Comment Dec 15, 2021 [place] P4 GLU,BUN,CREAT,LYTES,CA Speci men Type: PLASMA 06:43 AM [facility] Comment: Tests performed on Helicomm (405) SN:[id number] Ordering Provid er: ISATU TODD Report Released Date/Time: Dec 11, 2021 07:42 AM Reporting Lab: [facility] T [facility] [address] [facility] [address] Performing Lab: [facility] [address] [facility] [address] UREA NITROGEN 9 7-25 SODIUM 137 135-145 POTASSIUM 3.8 3.5-5.0 CHLORIDE 105 100-110 CARBON DIOXIDE 26 20-30 ANION GAP 6 4-16 GLUCOSE 102 H 65-100 CREATININE 0.64 0.5-1.5 CALCIUM 8.1 L 8.5-10.5 eGFR(CKD-EPI 2020) >90.0 >60 Dec 15, 2021 06:43 AM [facility] CBC PROFILE Sp ecimen Type: BLOOD No comment enter ed. Ordering Provid er: ISATU TODD Report Released Date/Time: Dec 10, 2021 07:22 AM Reporting Lab: [facility] [address] [facility] [address] Performing Lab: [facility] [address] [facility] [address] WBC 5.7 4.5-11.0 RBC 4.22 L 4.23-5.66 [...] 0-0 Dec 14, [address] [facility] CYTOGENETIC Specimen Type: ESOPHAGUS 02:59 PM [facility] FISH([facility]) Comment: ~For T est: CYTOGENETIC FISH([facility]) ~FISH HER 2 NUE, FFPE See full report in PAX Streamline Image display viewer/tab#LAB-Reference Ordering Provid er: NIURKA MILLER Report Released Date/Time: Dec 21, 2021 12:11 PM Reporting Lab: [facility] [address] [facility] [address] Performing Lab: [facility] CYTOGENETIC FISH([facility]) comment Dec 14, [address] [facility] P4 GLU,BUN,CREAT,LYTES,CA Speci men Type: PLASMA 06:27 AM [facility] Comment: Tests performed on Helicomm (405) SN:[id number] Ordering Provid er: ISATU TODD Report Released Date/Time: Dec 11, 2021 07:42 AM Reporting Lab: [facility] [address] [facility] [address] Performing Lab: [facility] [address] [facility] [address] UREA NITROGEN 10 7-25 SODIUM 137 135-145 [...] Reporting Lab: [facility] [address] [facility] [address] Performing Lab: [facility] [address] [facility] [address] WBC 6.0 4.5-11.0 RBC 4.29 4.23-5.66 HGB [...] 0-0 Dec 13, [address] [facility] P4 GLU,BUN,CREAT,LYTES,CA Speci men Type: PLASMA 06:34 AM [facility] Comment: Tests performed on Helicomm (405) SN:[id number] Ordering Provid er: ISATU TODD Report Released Date/Time: Dec 11, 2021 07:42 AM Reporting Lab: [facility] [address] [facility] [address] Performing Lab: [facility] [address] [facility] [address] UREA NITROGEN 12 7-25 SODIUM 136 135-145 [...] Reporting Lab: [facility] [address] [facility] [address] Performing Lab: [facility] [address] [facility] [address] WBC 5.6 4.5-11.0 RBC 4.28 4.23-5.66 HGB [...] 0-0 Dec 12, [address] [facility] P4 GLU,BUN,CREAT,LYTES,CA Speci men Type: PLASMA 06:21 AM [facility] Comment: Tests performed on Helicomm (405) SN:[id number] Ordering Provid er: ISATU TODD Report Released Date/Time: Dec 11, 2021 07:42 AM Reporting Lab: [facility] [address] [facility] [address] Performing Lab: [facility] [address] [facility] [address] UREA NITROGEN 11 7-25 SODIUM 139 135-145 [...] AM Reporting Lab: [facility] [address] [facility] [address] Performing Lab: [facility] [address] [facility] [address] WBC 5.5 4.5-11.0 RBC 4.37 4.23-5.66 HGB [...] 0.00 0-0 Dec 12, 2021 06:00 AM [employer] [facility] MAGNESIUM Sp ecimen Type: PLASMA Comment: Testin g Performed on Helicomm (405) SN:[id number] Ordering Provid er: ISATU TODD Report Released Date/Time: Dec 12, 2021 08:24 AM Reporting Lab: [place] [facility] [address] [facility] [address] Performing Lab: [employer] [place] GordianTecT EdufiiMROC [address] [facility] [address] MAGNESIUM 1.8 1.6-2.6 Dec 12, 2021 06:00 AM T[employer]T EdufiiMROC PHOSPHORUS Sp ecimen Type: PLASMA Comment: Testin g Performed on Helicomm (405) SN:[id number] Ordering Provid er: ISATU TODD Report Released Date/Time: Dec 12, 2021 08:24 AM Reporting Lab: [place] [facility]ian[employer]T [facility] [address] [facility] [address] Performing Lab: [place] [facility]T EdufiiMROC [address] [facility] [address] PHOSPHORUS 3.1 2.5-5.0 Dec 11, 2021 06:15 AM [employer] [place] GordianTecT EdufiiMROC ELECTROLYTES Sp ecimen Type: PLASMA Comment: Tests performed on Helicomm (405) SN:[id number] Ordering Provid er: ISATU TODD Report Released Date/Time: Dec 10, 2021 07:22 AM Reporting Lab: [place] [facility] [facility] [address] [facility] [address] Performing Lab: [place] [facility] [address] [facility] [address] SODIUM 137 135-145 POTASSIUM 4.3 3.5-5.0 CHLORIDE 108 100-110 CARBON DIOXIDE 20 20-30 ANION GAP 9 4-16 Dec 11, 2021 06:15 AM [place] [employer]T [facility] CBC PROFILE Sp ecimen Type: BLOOD Comment: Result s checked Ordering Provid er: ISATU TODD Report Released Date/Time: Dec 10, 2021 07:22 AM Reporting Lab: [place] [facility]ME[employer] [facility] [address] [facility] [address] Performing Lab: [facility] OMEGAT [facility] [address] [facility] [address] WBC 5.8 4.5-11.0 RBC 4.37 4.23-5.66 HGB [...] ecimen Type: PLASMA Comment: Tests performed on Helicomm (902) SN:[id number] Results checked Ordering Provid er: ISATU TODD Report Released Date/Time: Dec 11, 2021 07:44 AM Reporting Lab: [facility] [facility] [address] [facility] [address] Performing Lab: [place] OMEGAT ALMROC [address] [facility] [address] PHOSPHORUS 3.0 2.5-5.0 Dec 10, 2021 08:05 AM [place] [facility] MAGNESIUM Sp ecimen Type: PLASMA Comment: [place] [id number] on Dec 10, 2021@08:31 Tests performed on Helicomm (405) SN:[id number] Ordering Provid er: ISATU TODD Report Released Date/Time: Dec 10, 2021 07:22 AM Reporting Lab: [place] [facility] [address] [facility] [place] [address] Performing Lab: [place] [facility] [address] [facility] [place] [address] MAGNESIUM 1.7 1.6-2.6 Dec 10, 2021 08:05 AM [place] [facility] PHOSPHORUS Sp ecimen Type: PLASMA Comment: [place] [id number] on Dec 10, 2021@08:31 Tests performed on Helicomm (405) SN:[id number] Ordering Provid er: ISATU TODD Report Released Date/Time: Dec 10, 2021 07:22 AM Reporting Lab: [place] [facility] [address] [facility] [place] [address] Performing Lab: [place] [facility] [address] [facility] [place] [address] PHOSPHORUS 1.8 L 2.5-5.0 Dec 10, 2021 08:05 AM [place] UREA NITROGEN Specimen Type: PLASMA [facility] Comment: [place] [id number] on Dec 10, 2021@08:31 Tests performed on Helicomm (405) SN:[id number] Ordering Provid er: ISATU TODD Report Released Date/Time: Dec 10, 2021 07:22 AM Reporting Lab: [place] [facility] [address] [facility] [place] [address] Performing Lab: [place] [facility] [address] [facility] [place] [address] UREA NITROGEN 8 7-25 Dec 10, 2021 08:05 AM [place] [facility] CALCIUM Sp ecimen Type: PLASMA Comment: [place] [id number] on Dec 10, 2021@08:31 Tests performed on Helicomm (405) SN:[id number] Ordering Provid er: ISATU TODD Report Released Date/Time: Dec 10, 2021 07:22 AM Reporting Lab: [place] [facility] [address] [facility] [address] Performing Lab: [place] [facility] [address] [facility] [address] CALCIUM 8.3 L 8.5-10.5 Dec 10, 2021 08:05 AM [place] [facility] GLUCOSE Sp ecimen Type: PLASMA Comment: [place] [id number] on Dec 10, 2021@08:31 Tests performed on Pham Tunaspot (405) SN:[id number] Ordering Provid er: ISATU TODD Report Released Date/Time: Dec 10, 2021 07:22 AM Reporting Lab: [place] [facility] [address] [facility] [address] Performing Lab: [place] [facility] [address] [facility] [address] GLUCOSE 144 H 65-100 Dec 10, 2021 08:05 AM [place] [facility] ELECTROLYTES Sp ecimen Type: PLASMA Comment: [place] [id number] on Dec 10, 2021@08:31 Tests performed on Helicomm (405) SN:[id number] Ordering Provid er: ISATU TODD Report Released Date/Time: Dec 10, 2021 07:22 AM Reporting Lab: [place] [facility] [address] [facility] [address] Performing Lab: [place] [facility] [address] [facility] [address] SODIUM 139 135-145 POTASSIUM 3.7 3.5-5.0 CHLORIDE 107 100-110 CARBON DIOXIDE 24 20-30 ANION GAP 8 4-16 Dec 10, 2021 08:05 [place] CREATININE WITH eGFR Specime n Type: PLASMA AM [facility] PANEL Comment: [place] [id number] on Dec 10, 2021@08:31 Tests performed on Helicomm (405) SN:[id number] Ordering Provid er: ISATU TODD Report Released Date/Time: Dec 10, 2021 07:22 AM Reporting Lab: [place] [facility] [address] [facility] [address] Performing Lab: [place] [facility] [address] [facility] [address] CREATININE 0.78 0.5-1.5 eGFR(CKD-EPI 2020) >90.0 >60 Dec 10, 2021 08:05 AM [facility] CBC PROFILE Sp ecimen Type: BLOOD No comment enter ed. Ordering Provid er: ISATU TODD Report Released Date/Time: Dec 10, 2021 07:22 AM Reporting Lab: [place] OMEGAT [facility] [address] [facility] [address] Performing Lab: [place] [facility] [address] [facility] [address] WBC 7.0 4.5-11.0 RBC 4.54 4.23-5.66 HGB [...] 0.00 0-0 Dec 09, 2021 06:46 AM [facility] MAGNESIUM Sp ecimen Type: PLASMA Comment: Tests performed on Helicomm (089) SN:[id number] Ordering Provid er: ISATU TODD Report Released Date/Time: Dec 08, 2021 10:23 AM Reporting Lab: [facility] [address] [facility] [address] Performing Lab: [facility] [address] [facility] [address] MAGNESIUM 1.6 1.6-2.6 Dec 09, [address] [facility] P4 GLU,BUN,CREAT,LYTES,CA Speci men Type: PLASMA 06:46 AM [facility] Comment: Tests performed on Helicomm (405) SN:[id number] Ordering Provid er: ISATU TODD Report Released Date/Time: Dec 08, 2021 05:00 PM Reporting Lab: [facility] [address] [facility] [address] Performing Lab: [facility] [address] [facility] [address] UREA NITROGEN 6 L 7-25 SODIUM 134 [...] Reporting Lab: [facility] [address] [facility] [address] Performing Lab: [facility] [address] [facility] [address] WBC 7.1 4.5-11.0 RBC 4.40 4.23-5.66 HGB [...] 0.00 0-0 Dec 08, 2021 06:39 AM [place] [employer] [facility] MAGNESIUM Sp ecimen Type: PLASMA Comment: Testin g Performed on Helicomm (405) SN:[id number] Ordering Provid er: ISATU TODD Report Released Date/Time: Dec 07, 2021 10:32 AM Reporting Lab: [facility] [address] [facility] [address] Performing Lab: [facility] [address] [facility] [address] MAGNESIUM 1.5 L 1.6-2.6 Dec 08, 2021 [place] [employer] T P4 GLU,BUN,CREAT,LYTES,CA Speci men Type: PLASMA 06:39 AM [facility] Comment: Testin g Performed on Helicomm (405) SN:[id number] Ordering Provid er: ISATU TODD Report Released Date/Time: Dec 07, 2021 10:32 AM Reporting Lab: [employer] T [facility] [address] [facility] [address] Performing Lab: [facility] [address] [facility] [address] UREA NITROGEN 6 L 7-25 SODIUM 136 135-145 POTASSIUM 3.3 L 3.5-5.0 CHLORIDE 104 100-110 CARBON DIOXIDE 22 20-30 ANION GAP 10 4-16 GLUCOSE 133 H 65-100 CREATININE 0.76 0.5-1.5 CALCIUM 8.4 L 8.5-10.5 eGFR(CKD-EPI 2020) >90.0 >60 Dec 08, 2021 06:39 AM [place] [employer] T [facility] CBC PROFILE Sp ecimen Type: BLOOD No comment enter ed. Ordering Provid er: ISATU TODD Report Released Date/Time: Dec 07, 2021 10:32 AM Reporting Lab: [facility] [address] [facility] [address] Performing Lab: [facility] [address] [facility] WBC 8.4 4.5-11.0 RBC 4.75 4.23-5.66 [...] Dec 07, 2021 06:[address] [facility] LIVER PROFILE Specimen Typ e: PLASMA AM [facility] Comment: Tests performed on Helicomm (405 SN:[id number] Ordering Provid er: PORFIRIO WALTERS Report Released Date/Time: Dec 06, 2021 06:57 PM Reporting Lab: [facility] [address] [facility] [address] Performing Lab: [facility] [address] [facility] [address] PROTEIN, TOTAL 5.7 L 6.0-8.5 ALBUMIN 2.4 L 3.2-5.0 BILIRUBIN, TOTAL 0.4 0.2-1.2 ALKALINE PHOSPHATASE 109 40-150 ALT(SGPT) 10 7-52 AST(SGOT) 15 5-34 FIB-4 SCORE 1.92 <2.67 Dec 07, 2021 [facility] P[facility] GLU,BUN,CREAT,LYTES,CA Speci men Type: PLASMA 06:42 AM [facility] Comment: Tests performed on Helicomm (405) SN:[id number] Ordering Provid er: PORFIRIO WALTERS Report Released Date/Time: Dec 06, 2021 06:57 PM Reporting Lab: [place] [facility] [address] [facility] [address] Performing Lab: [place] [facility] [address] [facility] [address] UREA NITROGEN 9 7-25 SODIUM 135 135-145 POTASSIUM 3.5 3.5-5.0 CHLORIDE 103 100-110 CARBON DIOXIDE 22 20-30 ANION GAP 10 4-16 GLUCOSE 92 65-100 CREATININE 0.73 0.5-1.5 CALCIUM 8.0 L 8.5-10.5 eGFR(CKD-EPI 2020) >90.0 >60 Dec 07, 2021 06:42 AM [place] CBC PROFILE Specimen Type: BLOOD [facility] No comment enter ed. Ordering Provid er: PORFIRIO WALTERS Report Released Date/Time: Dec 06, 2021 06:57 PM Reporting Lab: [place] [facility] [address] [facility] [address] Performing Lab: [facility] [address] [facility] [address] WBC 5.7 4.5-11.0 RBC 4.15 L 4.23-5.66 [...] [facility]AM[facility] %) AUTOMATED Comment: Tests performed on Helicomm (405) SN:[id number] Ordering Provid er: ISATU TODD Report Released Date/Time: Dec 07, 2021 10:28 AM Reporting Lab: [place] [facility] [address] [facility] [address] Performing Lab: [place] [facility] [address] [facility] [address] RETICULOCYTES (%) AUTOMATED 1.23 0. 6-2.0 RETICULOCYTES (ABS) AUTOMATED 0.052 0.030-0.090 Dec 06, 2021 09:45 [place] MRSA SURVL NARES Specimen Ty pe: NARES PM [facility] DNA No comment enter ed. Ordering Provid er: ALVARO VARGHESE Report Released Date/Time: Dec 07, 2021 02:20 AM Reporting Lab: [place] [facility] [address] [facility] [address] Performing Lab: [place] [facility] [address] [facility] [address] MRSA SURVL NARES DNA NEGATIVE NEGATIVE Dec 06, 2021 06:00 [place] URINALYSIS W/REFLEX TO Speci men Type: URINE PM [facility] CULTURE No comment enter ed. Ordering Provid er: JELANI SÁNCHEZ Report Released Date/Time: Dec 06, 2021 11:57 AM Reporting Lab: [place] [facility] [address] [facility] [address] Performing Lab: [place] [facility] [address] [facility] [address] URINE COLOR Arlin YELLOW SPECIFIC GRAVITY 1.029 [...] 21, R[place] VARIANT Comment: https://www.cdc.gov/coronavirus/2019-ncov/cases-updates/variant- surveillance/variant-info.html [employer] SARS CoV 2 [employer] Research Assay-GX is a next-generation sequencing (NGS) [...] samples. The assay is run on the [employer] Sequencer, which performs automated library preparation, sequencing, analysis, and reporting. PM The sequence an alysis includes determination of viral phylogenetic lineage by comparison to the reference strain Wuhan-Hu-1, GenBank: [id number]. Sequence determination may not be possible owing [...] [facility] [address] [facility] [address] Performing Lab: [facility] [address] [facility] [address] SARS-CoV-2 CLADE() 22C (OMICRON) SARS-CoV-2 LINEAGE() BA.2.12.1 Dec 06, 2021 12:00 [facility] COVID-19 AG SCREEN Specimen Type: NASAL CAVITY PM [facility] PANEL BINAX(405) Comment: Testi ng Performed By: Mike Briscoe Ordering Provid er: JELANI SÁNCHEZ Report Released Date/Time: Dec 08, 2021 08:23 AM Reporting Lab: [facility] [address] [facility] [address] Performing Lab: [facility] [address] [facility] [address] COVID-19 AG SCRN(wrj BINAX) POSITIVE HH NE G Dec 06, 2021 12:00 PM [facility] TROPONIN II Sp ecimen Type: PLASMA Comment: Tests performed on Pham Out And Out Cigar Maker Hand (405) SN:[id number] Ordering Provid er: JELANI SÁNCHEZ Report Released Date/Time: Dec 06, 2021 11:57 AM Reporting Lab: [facility] [address] [facility] [place] [address] Performing Lab: [facility] [address] [facility] [address] TROPONIN II 0.03 0.00-0.29 Dec 06, 2021 12:00 PM [facility] LIVER PROFILE Sp ecimen Type: PLASMA Comment: Testin g Performed on Pham Out And Out Cigar Maker Hand (405) SN:[id number] Ordering Provid er: JELANI SÁNCHEZ Report Released Date/Time: Dec 06, 2021 11:57 AM Reporting Lab: [facility] [address] [facility] [address] Performing Lab: [facility] [address] [facility] [address] PROTEIN, TOTAL 6.6 6.0-8.5 ALBUMIN 2.8 L 3.2-5.0 BILIRUBIN, TOTAL 0.6 0.2-1.2 ALKALINE PHOSPHATASE 134 40-150 ALT(SGPT) 13 7-52 AST(SGOT) 18 5-34 FIB-4 SCORE 1.94 <2.67 Dec 06, 2021 12:00 PM [facility] BNP(P) Sp ecimen Type: PLASMA Comment: Tests performed on Pham Out And Out Cigar Maker Hand (405) SN:[id number] Ordering Provid er: JELANI SÁNCHEZ Report Released Date/Time: Dec 06, 2021 11:57 AM Reporting Lab: [facility] [address] [facility] [address] Performing Lab: [facility] [address] [facility] [address] BNP(P) 224.8 H 10-100 Dec 06, 2021 [place] P4 GLU,BUN,CREAT,LYTES,CA Speci men Type: PLASMA 12:00 PM [facility] Comment: Testin g Performed on Phma Out And Out Cigar Maker Hand (405) SN:[id number] Ordering Provid er: JELANI SÁNCHEZ Report Released Date/Time: Dec 06, 2021 11:57 AM Reporting Lab: [facility] [address] [facility] [address] Performing Lab: [facility] [address] [facility] [address] UREA NITROGEN 13 7-25 SODIUM 138 135-145 POTASSIUM 3.8 3.5-5.0 CHLORIDE 103 100-110 CARBON DIOXIDE 23 20-30 ANION GAP 12 4-16 GLUCOSE 105 H 65-100 CREATININE 0.90 0.5-1.5 CALCIUM 8.7 8.5-10.5 eGFR(CKD-EPI 2020) >90.0 >60 Dec 06, 2021 [place] COVID-19+FLU/RSV DIAGNOSTIC Spe cimen Type: NASOPHARYNX 12:00 PM [facility] PANEL(405) Comment: Tests performed on Kite Pharmaxpert (405) Critical results called to and read back by: ALESHIA WILKINSON RN 12/06/21 @ 1312 Ordering Provid er: JELANI SÁNCHEZ Report Released Date/Time: Dec 06, 2021 11:57 AM Reporting Lab: [facility] [address] [facility] [address] Performing Lab: [place] [facility] [address] [facility] [address] FLU A(PCR) NEGATIVE NEGATIVE FLU B(PCR) NEGATIVE NEGATIVE RSV(PCR) NEGATIVE NEGATIVE COVID-19([id number]) DETECTED HH NO T DETECTED Dec 06, 2021 12:00 PM [facility] Sp ecimen Type: BLOOD No comment enter ed. Ordering Provid er: JELANI SÁNCHEZ Report Released Date/Time: Dec 06, 2021 11:57 AM Reporting Lab: [facility] [address] [facility] [address] Performing Lab: [facility] [address] [facility] [address] WBC 7.2 4.5-11.0 RBC 4.86 4.23-5.66 HGB [...] 2021 07:56 /min mm[Hg] RIVER PM T [facility] Dec 11, 3 WHITE 2021 07:49 RIVER PM T [facility] Dec 11, 98.3 F 98 127/83 18 /min 97 % 0 WHITE 2021 02:50 /min mm[Hg] RIVER PM T [facility] Dec 11, 0 WHITE 2021 01:57 RIVER PM T [facility] Dec 11, 0 WHITE 2021 08:[address] [facility] Social History: Smoking Status (Most current) [...] took place. Date/Time Smoking Status/Tobacco Use Comment [facility] Apr 01, 2020 01:16 PM [...] IN PAST YEAR CAREY DOYLE [facility] May 01, 2016 11:19 AM QUIT TOBACCO USE IN PAST YEAR CAREY MONTOYA [facility] Mar 16, 2016 12:50 PM V1-PT DECLINES REF TO TOBACCO CAREY DOYLE [facility] CESS PRGM Mar 16, 2016 12:50 PM V1-PT THINKING ABOUT QUIT CAREY DOYLE [facility] TOBACCO USE Aug 12, 2015 08:48 AM CURRENT SMOKER CAREY Yates [facility] Radiology Reports: +/- 30 days of [...] comes from all [place] treatment facilities. Date/Time Radiology Report Provider Source Dec 13, 2021 12:57 PM MRI ABDOMEN W/WO CONTRAST: MARYELLEN LONG LUCAS LARES N [id number] -1950 [facility] Exm Date: DEC 13, 2021@12:57 Req Phys: ISATU TODD Loc: OP Unknown/0 12-15-2021@13:20 Img Loc: MRI IMAGING (OOS) Service: ZGENERAL MEDICINE (Case [id number] COMPLETE) MRI ABDOMEN W/WO CONTRAST (M RI Detailed) CPT:87736 Reason for Study: further characterization of a [...] new lyphadenopathy REQUESTING MD: Isatu Todd PAGER: [phone] PHONE: [phone] Weight: 232.2 lb [105.32 kg] (12/12/2021 05:00) [...] patient will need to arrange for a customer service driver to take him/her home after [...] 15, 2021 Date Verified: DEC 15, 2021 Cyber Instructor E-Sig:/ES/MARYELLEN LONG Report: MRI ABDOMEN W/WO CONTRAST [...] MALIGNANCY Primary Interpreting Staff: Staff AMELIA THOMAS (Cyber Instructor) / Dec 10, 2021 09:[address] ABDOMEN & PELVIS: [facility]IDE [facility] LUCAS MEEK N [id number] -1950 M SERVICE [facility] Exm Date: DEC 10, 2021@09:30 Req Phys: ISATU TODD Loc: 1S MED/12-10@10:57 Img Loc: CT SCAN (OOS) Service: [facility] MEDICINE (Case [id number] COMPLETE) CT ABD & PELVIS WITHOUT CONT RAST (CT Detailed) CPT:93718 Reason for Study: 71 yo male with [...] INDEX - NO HEIGHTS FOUND Pager number: [phone] STAT orders MUST be call ed to RADIOLOGY [phone] to speak to the appropriate sewing pattern layout technician. Report Status: Verified Date Reported: DEC 10, 2021 Date Verified: DEC 10, 2021 Cyber Instructor E-Sig: Report: EXAM: CT abdomen and [...] ph nodes. READING PHYSICIAN: Ramone Munoz D.O. -[phone] 12/10/2021 10:55 EDT [facility] National Teleradiology Program [phone] (For Medical Practitioner Use Only ) [address] [facility], [facility] [address], [address] [place] [address] Attention Patients / Veterans: If you have ques tions or concerns about these test results, please contact your o rdering provider or primary care team. Primary Diagnostic Code: SIGNIFICANT ABNORMALIT Y, ATTN NEEDED Primary Interpreting Staff: RADIOLOGY,OUTSIDE SERVICE, Staff Physician / Dec 09, 2021 07:34 AM BASW (MODIFIED): JESSIE CHENEY TARA ER JCT LUCAS MEEK [id number] -1950 M [facility] Exm Date: DEC 09, 2021@07:34 Req Phys: ISATU TODD Yao Manjarrez Loc: 1S MED/12-09@11:26 Img Loc: XRAY (OOS) Service: [facility] MEDICINE (Case [id number] COMPLETE) BASW (MODIFIED) (RAD Detaile d) CPT:92691 Contrast Media : Barium Reason for Study: dysphagia ?esophageal spasm Clinical History: Report Status: Verified Date Reported: DEC 09, 2021 Date Verified: DEC 09, 2021 Cyber Instructor E-Sig:/ES/JESSIE CHENEY Report: BASW (MODIFIED) , [...] REQUIRED Primary Interpreting Staff: JESSIE 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, 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) /TLC Dec 06, 2021 12:[address] CHEST (INCLUDES ADRENALS): [facility]ESSIE [facility]ENE[facility] [id number] -1950 M [facility]OC Exm Date: DEC 06, 2021@12:59 Req Phys: GONZALOJELANI Loc: [facility] ED DAYS M 1RD (Req'g Loc) Img Loc: CT SCAN (OOS) Service: Unknown (Case [id number] COMPLETE) CT THORAX W/O CONT (CT Detai led) CPT:35524 Reason for Study: Opacification right chest Clinical History: No contrast allergy BUN: 13 (12/06/21 12:00) CREATI: 0.90 (12/06/21 12:00) eGFR 05/16/21 09:43 52 L Weight: 232.6 lb [105.51 kg] (12/06/2021 11:40) BODY MASS INDEX - NO HEIGHTS FOUND Pager number: [phone] STAT orders MUST be called t o RADIOLOGY [phone] to speak to the appropriate sewing pattern layout technician. Indications - Other: Opacification right chest, covid positive, lung cancer histo Report Status: Verified Date Reported: DEC 06, 2021 Date Verified: DEC 06, 2021 Cyber Instructor E-Sig:/ES/JESSIE CHENEY Report: CT THORAX W/O [...] REQUIRED Primary Interpreting Staff: JESSIE CHENEY, 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) Primary Interpreting Resident: PRINCE CHAMPION, Resident /BR Dec 06, 2021 11:58 AM CHEST SINGLE VIEW: JESSIE CHENEYT LUCAS MEEK N [id number] -1950 [facility] Exm Date: DEC 06, 2021@11:58 Req Phys: JELANI SÁNCHEZ Pat Loc: [facility] ED DAYS M 1RD (Req'g Loc) Img Loc: XRAY (OOS) Service: Unknown (Case [id number] COMPLETE) CHEST SINGLE VIEW (RAD Detai led) CPT:23786 Proc Modifiers : PORTABLE EXAM Reason for Study: SOB, home covid test positive Clinical History: Report Status: Verified Date Reported: DEC 06, 2021 Date Verified: DEC 06, 2021 Cyber Instructor E-Sig:/ES/JESSIE CHENEY Report: Exam type: Chest [...] REQUIRED Primary Interpreting Staff: JESSIE CHENEY, 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) /TLC Pathology Reports: +/- 30 days [...] MILLER LOCAL TITLE: LR SURGICAL PATHOLOGY REPORT [facility] STANDARD TITLE: PATHOLOGY REPORT DATE OF NOTE: JAN 03, 2022@10:28:01 ENTRY DATE: JAN 03, 2022@10:28:01 AUTHOR: NIURKA MILLER EXP COSIGNER: URGENCY: STATUS: COMPLETED $APHDR Reporting Lab: [facility] [CLIA# [id number]] [address] [place] [address] - - - - - - [...] automatically d ocumented from SURGERY package case #[id number] Field (#32) PRINCIPAL PRE-OP DIAGNOSIS, (#.72) OTHER [...] automatically d ocumented from SURGERY package case #[id number] Field (#34) PRINCIPAL POST-OP DIAG, (#.74) OTHER [...] Label: Lucas Meek Paperwork: Lucas Meek Cassette: [id number];..;KALYANI;.;405;[id number] Specimen is labeled: ES bx Received in formalin are several pieces of pale boyd and brown tissue, 1.2 x 0.7 cm in aggregate. Submitted entirely in 1 cassette [id number];..;KALYANI;.;405;[id number] SAW 12/15/2021 Microscopic exam: *+* MODIFIED REPORT *+* (Last modified: JAN 03, 2022@09:30:20 typed by NIURKA WADDELL) DIAGNOSIS: A. 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 Kendell long. TIARA Coombs was notified on 12/21/21. Modified on 01/03/22 to include report from [facility] stating that tumor is NEGATIVE for her2/ matheus amplification. The attending pathologist who signature mansoor ears on this report has reviewed all diagnostic slides and has edited t he gross and/or microscopic portion of this report in rendering the final pathologic diagnosis. [address] [address] CPT: 07478 /emely/ NIURKA Yeung MD Signed Jan 03, 2022@10:28 Performing Laboratory: Surgical Pathology Report Performed By: [facility] [CLIA# [id number]] [address] [place] [phone] $FTR - - - - - [...] - - LUCAS MEEK STANDARD FORM 515 ID:[id number] SEX:M :1950 AGE: 71 LOC: SDM END PCP: Isatu Todd /emely/ NIURKA MILLER Staff Signed: 01/03/2022 10:28 Dec 21, 2021 11:46 AM LR SURGICAL PATHOLOGY REPORT: STEFANY MILLER [facility] LOCAL TITLE: LR SURGICAL PATHOLOGY REPORT [facility] STANDARD TITLE: PATHOLOGY REPORT DATE OF NOTE: DEC 21, 2021@11:46:59 ENTRY DATE: DEC 21, 2021@11:46:59 AUTHOR: NIURKA MILLER EXP COSIGNER: URGENCY: STATUS: COMPLETED $APHDR Reporting Lab: [facility] [CLIA# [id number]] [address] [place] [address] - - - - - - [...] automatically d ocumented from SURGERY package case #[id number] Field (#32) PRINCIPAL PRE-OP DIAGNOSIS, (#.72) OTHER [...] automatically d ocumented from SURGERY package case #[id number] Field (#34) PRINCIPAL POST-OP DIAG, (#.74) OTHER [...] Label: Lucas Meek Paperwork: Lucas Meek Cassette: [id number];..;KALYANI;.;405;[id number] Specimen is labeled: ES bx Received in formalin are several pieces of pale boyd and brown tissue, 1.2 x 0.7 cm in aggregate. Submitted entirely in 1 cassette [id number];..;KALYANI;.;405;[id number] SAW 12/15/2021 Microscopic exam: DIAGNOSIS: A. 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 Kendell long. TIARA Coombs was notified on 12/21/21. The attending pathologist who signature mansoor ears on this report has reviewed all diagnostic slides and has edited t he gross and/or microscopic portion of this report in rendering the final pathologic diagnosis. [address] [address] CPT: 52719 /emely/ NIURKA Yeung MD Signed Dec 21, 2021@11:46 Performing Laboratory: Surgical Pathology Report Performed By: [facility] [CLIA# [id number]] [address] [place] [address] $FTR - - - - - [...] - - LUCAS MEEK STANDARD FORM 515 ID:[id number] SEX:M :1950 AGE: 71 LOC: [facility] END PCP: Isatu Todd /charmaine Yeung MD Signed: 12/21/2021 11:46 Dec 06, 2021 03:30 PM LR MICROBIOLOGY REPORT: [facility] Reporting Lab: [facility] [CLIA# [id number]] [address] [place] [address] Accession [UID]: [id number] [[id number]] Receiv ed: Dec 06, 2021@16:14 Collection sample: BLOOD CUL T BOTTLE(NIRMAL/AERO)Collection date: Dec 06, 2021 15:30 Site/Specimen: BLOOD Provider: JELANI SÁNCHEZ Comment on specimen: LAC Test(s) ordered: BLOOD CULTURE ANAEROBI C....... completed: Dec 12, 2021 06:18 * BACTERIOLOGY FINAL REPORT => Dec 12, 2021 06:1 8 TECH CODE: [id number] Bacteriology Remark(s): NO GROWTH IN 5 DAYS =--=--=--=--=--=--=--=--=--=--=--=--=--= --=--=--=--=--=--=--=--=--=--=--=--=-- Performing Laboratory: Bacteriology Report Performed By: [facility] [CLIA# [id number]] [address] [place] [address] Dec 06, 2021 03:30 PM LR MICROBIOLOGY REPORT: [facility] Reporting Lab: [facility] [CLIA# [id number]] [address] [place] [address] Accession [UID]: [id number] [[id number]] Receiv ed: Dec 06, 2021@16:14 Collection sample: BLOOD CUL T BOTTLE(NIRMAL/AERO)Collection date: Dec 06, 2021 15:30 Site/Specimen: BLOOD Provider: JELANI SÁNCHEZ Comment on specimen: LAC Test(s) ordered: BLOOD CULTURE AEROBIC. ........ completed: Dec 12, 2021 06:17 * BACTERIOLOGY FINAL REPORT => Dec 12, 2021 06:1 7 TECH CODE: [id number] Bacteriology Remark(s): NO GROWTH IN 5 DAYS =--=--=--=--=--=--=--=--=--=--=--=--=--= --=--=--=--=--=--=--=--=--=--=--=--=-- Performing Laboratory: Bacteriology Report Performed By: [facility] [CLIA# [id number]] [address] [place] [address]
--- OUTSIDE RECORDS SUMMARY | 2022-01-19 09:12 | XMS_ITS ---
DAILY HOSPITALIZATION DATA [facility] Encounter Summary Created on:December 11, 2021 Patient:LUCAS MEEK Sex:Male :1950 Author Organization [facility] Address [address] [place] [id number] Support Name Relationship Address Phone YUSRA MEEK Unavailable [address] [place] [address] YUSRA MEEK Unavailable [address] [place] [facility] [place] [address] CLAY MOSLEY Unavailable Unavailable SJ SANTACRUZ Unavailable [...] MEDICARE MEDICARE PART Jun 18, PART A [id number] KALYANI PATIENT (WNR) (M) A 2016 13A 1 U[place]AS MEDICARE MEDICARE PART Jun 18, PART A [id number] MEEK DO PATIENT (WNR) (M) A 2017 VH81 2 [place]AS MEDICARE MEDICARE PART Jun 18, PART B [id number] KALYANIDO PATIENT (WNR) (M) B 2017 VH81 2 [place] MEDICARE MEDICARE PART Jun 18, PART B [id number] DO KALYANI PATIENT (WNR) (M) B 2016 13A 1 [place] UNITED MEDICARE MCR(Jun 18 [id number] Luz MEEK PATIENT HEALTHCARE ADVANTAGE NR) 2021 37 0 UGLAS MCR (WNR) Selected Encounter This section includes the information on record at [place] for the Encounter. Date/Time Encounter Type Encounter Description Reason Provider Source Dec 11, 2021 10:26 Inpatient Visit DAILY HOSPITALIZATION DATA AM [facility] Encounter Template Text not used by [place] Plan of Treatment: Future Appointments (+ 6 [...] - [place] [facility] Jan 10, 2022 11:30 AM AMBULATORY - MEDICINE [facility] Jan 24, 2022 08:00 AM [place] [facility] Feb 21, 2022 10:00 AM [place] [facility] Mar 21, 2022 10:30 AM [...] The data comes from all [place] treatment [facility]. Test Date/Time Test Type Test Details Facility Name October 31, 2021 07:37 AM Consult Order COMMUNITY CARE-EGD [facility] November 15, 2021 10:37 AM Consult Order [facility] CARE-PODIATRY [facility] Dec 06, 2021 12:52 PM Pharmacy [place] In[place] Order [facility] Dec 06, 2021 03:24 PM Pharmacy [place] [facility] Dec 06, 2021 03:40 PM Pharmacy [place] Order [facility] Dec 15, 2021 08:41 AM Consult Order SPEECH PATHOLOGY [place] OUT[place] Cons [facility] Jan 15, 2022 10:08 PM Consult Order [facility] CARE-PALLIATIVE CARE [facility] Lab Results: +/- 30 days of [...] Reference Range Comment Dec 15, 2021 [place] P4 GLU,BUN,CREAT,LYTES,CA Speci men Type: PLASMA 06:43 AM [facility] Comment: Tests performed on EpiCrystals (405) SN:[id number] Ordering Provid er: ISATU TODD Report Released Date/Time: Dec 11, 2021 07:42 AM Reporting Lab: [facility] [address] [facility] [address] Performing Lab: [facility] [address] [facility] [address] UREA NITROGEN 9 7-25 SODIUM 137 135-145 POTASSIUM 3.8 3.5-5.0 CHLORIDE 105 100-110 CARBON DIOXIDE 26 20-30 ANION GAP 6 4-16 GLUCOSE 102 H 65-100 CREATININE 0.64 0.5-1.5 CALCIUM 8.1 L 8.5-10.5 eGFR(CKD-EPI 2020) >90.0 >60 Dec 15, 2021 06:43 AM [facility] CBC PROFILE Sp ecimen Type: BLOOD No comment enter ed. Ordering Provid er: ISATU TODD Report Released Date/Time: Dec 10, 2021 07:22 AM Reporting Lab: [facility] [address] [facility] [address] Performing Lab: [facility] [address] [facility] [address] WBC 5.7 4.5-11.0 RBC 4.22 L 4.23-5.66 [...] ABSOLUTE NRBC 0.00 0-0 Dec 14, 2021 [facility] CYTOGENETIC Specimen Type: ESOPHAGUS 02:59 PM VAOC FISH([facility] Comment: ~For T est: CYTOGENETIC FISH([facility]) ~FISH HER 2 NUE, FFPE See full report in Go[employer]zee Image display viewer/tab#LAB-Reference Ordering Provid er: NIURKA MILLER Report Released Date/Time: Dec 21, 2021 12:11 PM Reporting Lab: [facility] [address] [facility] [address] Performing Lab: [facility] CYTOGENETIC FISH([facility]) comment Dec 14, 2021 [facility] P4 GLU,BUN,CREAT,LYTES,CA Speci men Type: PLASMA 06:27 AM [facility] Comment: Tests performed on EpiCrystals (405) SN:[id number] Ordering Provid er: ISATU TODD Report Released Date/Time: Dec 11, 2021 07:42 AM Reporting Lab: [facility] [address] [facility] [address] Performing Lab: [facility] [address] [facility] [address] UREA NITROGEN 10 7-25 SODIUM 137 135-145 POTASSIUM 4.0 3.5-5.0 CHLORIDE 104 100-110 CARBON DIOXIDE 25 20-30 ANION GAP 8 4-16 GLUCOSE 99 65-100 CREATININE 0.67 0.5-1.5 CALCIUM 8.2 L 8.5-10.5 eGFR(CKD-EPI 2020) >90.0 >60 Dec 14, 2021 06:27 AM [facility] CBC PROFILE Sp ecimen Type: BLOOD No comment enter ed. Ordering Provid er: ISATU TODD Report Released Date/Time: Dec 10, 2021 07:22 AM Reporting Lab: [facility] [address] [facility] [address] Performing Lab: [facility] [address] [facility] [address] WBC 6.0 4.5-11.0 RBC 4.29 4.23-5.66 HGB [...] ABSOLUTE NRBC 0.00 0-0 Dec 13, 2021 [facility] P4 GLU,BUN,CREAT,LYTES,CA Speci men Type: PLASMA 06:34 AM [facility] Comment: Tests performed on EpiCrystals (405) SN:[id number] Ordering Provid er: ISATU TODD Report Released Date/Time: Dec 11, 2021 07:42 AM Reporting Lab: [facility] [address] [facility] [address] Performing Lab: [facility] [address] [facility] [address] UREA NITROGEN 12 7-25 SODIUM 136 135-145 POTASSIUM 3.9 3.5-5.0 CHLORIDE 105 100-110 CARBON DIOXIDE 24 20-30 ANION GAP 7 4-16 GLUCOSE 102 H 65-100 CREATININE 0.66 0.5-1.5 CALCIUM 8.3 L 8.5-10.5 eGFR(CKD-EPI 2020) >90.0 >60 Dec 13, 2021 06:34 AM [facility] CBC PROFILE Sp ecimen Type: BLOOD No comment enter ed. Ordering Provid er: ISATU TODD Report Released Date/Time: Dec 10, 2021 07:22 AM Reporting Lab: [facility] [address] [facility] [address] Performing Lab: [facility] [address] [facility] [address] WBC 5.6 4.5-11.0 RBC 4.28 4.23-5.66 HGB [...] ABSOLUTE NRBC 0.00 0-0 Dec 12, 2021 [facility] P4 GLU,BUN,CREAT,LYTES,CA Speci men Type: PLASMA 06:21 AM [facility] Comment: Tests performed on EpiCrystals (405) SN:[id number] Ordering Provid er: ISATU TODD Report Released Date/Time: Dec 11, 2021 07:42 AM Reporting Lab: [facility] [address] [facility] [address] Performing Lab: [facility] [address] [facility] [address] UREA NITROGEN 11 7-25 SODIUM 139 135-145 POTASSIUM 4.1 3.5-5.0 CHLORIDE 107 100-110 CARBON DIOXIDE 24 20-30 ANION GAP 8 4-16 GLUCOSE 110 H 65-100 CREATININE 0.70 0.5-1.5 CALCIUM 8.3 L 8.5-10.5 eGFR(CKD-EPI 2020) >90.0 >60 Dec 12, 2021 06:21 AM [facility] CBC PROFILE Sp ecimen Type: BLOOD No comment enter ed. Ordering Provid er: ISATU TODD Report Released Date/Time: Dec 10, 2021 07:22 AM Reporting Lab: [facility] [address] [facility] [address] Performing Lab: [facility] [address] [facility] [address] WBC 5.5 4.5-11.0 RBC 4.37 4.23-5.66 HGB [...] 0.00 0-0 Dec 12, 2021 06:00 AM [facility] MAGNESIUM Sp ecimen Type: PLASMA Comment: Testin g Performed on EpiCrystals (405) SN:[id number] Ordering Provid er: ISATU TODD Report Released Date/Time: Dec 12, 2021 08:24 AM Reporting Lab: [email or web address] [address] [facility] [address] Performing Lab: [employer] [place] [email or web address] [address] [facility] [address] MAGNESIUM 1.8 1.6-2.6 Dec 12, 2021 06:00 AM [facility] PHOSPHORUS Sp ecimen Type: PLASMA Comment: Testin g Performed on EpiCrystals (405) SN:[id number] Ordering Provid er: ISATU TODD Report Released Date/Time: Dec 12, 2021 08:24 AM Reporting Lab: [place] [email or web address] [address] [facility] [address] Performing Lab: [place] [email or web address] [address] [facility] [address] PHOSPHORUS 3.1 2.5-5.0 Dec 11, 2021 06:15 AM [employer] [place] [email or web address] ELECTROLYTES Sp ecimen Type: PLASMA Comment: Tests performed on EpiCrystals (405) SN:[id number] Ordering Provid er: ISATU TODD Report Released Date/Time: Dec 10, 2021 07:22 AM Reporting Lab: [place] [email or web address] [address] [facility] [address] Performing Lab: [place] [email or web address] [address] [facility] [address] SODIUM 137 135-145 POTASSIUM 4.3 3.5-5.0 CHLORIDE 108 100-110 CARBON DIOXIDE 20 20-30 ANION GAP 9 4-16 Dec 11, 2021 06:15 AM [place] [facility] CBC PROFILE Sp ecimen Type: BLOOD Comment: Result s checked Ordering Provid er: ISATU TODD Report Released Date/Time: Dec 10, 2021 07:22 AM Reporting Lab: [place] [facility] [address] [facility] [address] Performing Lab: [facility] [place] [facility] [address] [facility] [address] WBC 5.8 4.5-11.0 RBC 4.37 4.23-5.66 HGB [...] ecimen Type: PLASMA Comment: Tests performed on EpiCrystals (084) SN:[id number] Results checked Ordering Provid er: ISATU TODD Report Released Date/Time: Dec 11, 2021 07:44 AM Reporting Lab: [facility] [place] [facility] [address] [facility] [address] Performing Lab: [place] [facility] [address] [facility] [address] PHOSPHORUS 3.0 2.5-5.0 Dec 10, 2021 08:05 AM [place] [facility] MAGNESIUM Sp ecimen Type: PLASMA Comment: [place] [id number] on Dec 10, 2021@08:31 Tests performed on EpiCrystals (405) SN:[id number] Ordering Provid er: ISATU TODD Report Released Date/Time: Dec 10, 2021 07:22 AM Reporting Lab: [place] [facility] [address] [place] [facility] [place] [place] [address] Performing Lab: [place] [facility] [address] [place] [facility] [place] [address] MAGNESIUM 1.7 1.6-2.6 Dec 10, 2021 08:05 AM [place] [facility] PHOSPHORUS Sp ecimen Type: PLASMA Comment: [place] [id number] on Dec 10, 2021@08:31 Tests performed on EpiCrystals (405) SN:[id number] Ordering Provid er: ISATU TODD Report Released Date/Time: Dec 10, 2021 07:22 AM Reporting Lab: [place] [facility] [address] [place] [facility] [place] [address] Performing Lab: [place] [facility] [address] [place] [facility] [place] [address] PHOSPHORUS 1.8 L 2.5-5.0 Dec 10, 2021 08:05 AM [place] UREA NITROGEN Specimen Type: PLASMA [facility] Comment: [place] [id number] on Dec 10, 2021@08:31 Tests performed on EpiCrystals (405) SN:[id number] Ordering Provid er: ISATU TODD Report Released Date/Time: Dec 10, 2021 07:22 AM Reporting Lab: [place] [facility] [address] [place] [facility] [place] [address] Performing Lab: [place] [facility] [address] [place] [facility] [place] [address] UREA NITROGEN 8 7-25 Dec 10, 2021 08:05 AM [place] [facility] GLUCOSE Sp ecimen Type: PLASMA Comment: [place] [id number] on Dec 10, 2021@08:31 Tests performed on EpiCrystals (405) SN:[id number] Ordering Provid er: ISATU TODD Report Released Date/Time: Dec 10, 2021 07:22 AM Reporting Lab: [place] [facility] [address] [facility] [address] Performing Lab: [place] [facility] [address] [facility] [address] GLUCOSE 144 H 65-100 Dec 10, 2021 08:05 AM [place] [facility] ELECTROLYTES Sp ecimen Type: PLASMA Comment: [place] [id number] on Dec 10, 2021@08:31 Tests performed on Pham Zenverge (405) SN:[id number] Ordering Provid er: ISATU TODD Report Released Date/Time: Dec 10, 2021 07:22 AM Reporting Lab: [place] [facility] [address] [facility] [address] Performing Lab: [place] [facility] [address] [facility] [address] SODIUM 139 135-145 POTASSIUM 3.7 3.5-5.0 CHLORIDE 107 100-110 CARBON DIOXIDE 24 20-30 ANION GAP 8 4-16 Dec 10, 2021 08:05 AM [place] [facility] CALCIUM Sp ecimen Type: PLASMA Comment: [place] [id number] on Dec 10, 2021@08:31 Tests performed on Pham Zenverge (405) SN:[id number] Ordering Provid er: ISATU TODD Report Released Date/Time: Dec 10, 2021 07:22 AM Reporting Lab: [place] [facility] [address] [facility] [address] Performing Lab: [place] [facility] [address] [facility] [address] CALCIUM 8.3 L 8.5-10.5 Dec 10, 2021 08:05 [place] CREATININE WITH eGFR Specime n Type: PLASMA AM [facility] PANEL Comment: [place] [id number] on Dec 10, 2021@08:31 Tests performed on EpiCrystals (405) SN:[id number] Ordering Provid er: ISATU TODD Report Released Date/Time: Dec 10, 2021 07:22 AM Reporting Lab: [place] [facility] [address] [facility] [address] Performing Lab: [place] [facility] [address] [facility] [address] CREATININE 0.78 0.5-1.5 eGFR(CKD-EPI 2020) >90.0 >60 Dec 10, 2021 08:05 AM [facility] CBC PROFILE Sp ecimen Type: BLOOD No comment enter ed. Ordering Provid er: ISATU TODD Report Released Date/Time: Dec 10, 2021 07:22 AM Reporting Lab: [facility] [place] [facility] [address] [facility] [address] Performing Lab: [place] [facility] [address] [facility] [address] WBC 7.0 4.5-11.0 RBC 4.54 4.23-5.66 HGB [...] 0.00 0-0 Dec 09, 2021 06:46 AM [facility] MAGNESIUM Sp ecimen Type: PLASMA Comment: Tests performed on EpiCrystals (175) SN:[id number] Ordering Provid er: ISATU TODD Report Released Date/Time: Dec 08, 2021 10:23 AM Reporting Lab: [facility] [address] [facility] [address] Performing Lab: [facility] [address] [facility] [address] MAGNESIUM 1.6 1.6-2.6 Dec 09, 2021 [facility] P4 GLU,BUN,CREAT,LYTES,CA Speci men Type: PLASMA 06:46 AM [facility] Comment: Tests performed on EpiCrystals (405) SN:[id number] Ordering Provid er: ISATU TODD Report Released Date/Time: Dec 08, 2021 05:00 PM Reporting Lab: [facility] [address] [facility] [address] Performing Lab: [facility] [address] [facility] [address] UREA NITROGEN 6 L 7-25 SODIUM 134 [...] Lab: [facility] [address] [facility] [address] Performing Lab: [facility] [address] [facility] [address] WBC 7.1 4.5-11.0 RBC 4.40 4.23-5.66 HGB [...] 0.00 0-0 Dec 08, 2021 06:39 AM [employer] T [facility] MAGNESIUM Sp ecimen Type: PLASMA Comment: Testin g Performed on EpiCrystals (405) SN:[id number] Ordering Provid er: ISATU TODD Report Released Date/Time: Dec 07, 2021 10:32 AM Reporting Lab: [facility] [address] [facility] [address] Performing Lab: [facility] [address] [facility] [address] MAGNESIUM 1.5 L 1.6-2.6 Dec 08, 2021 [employer] T P4 GLU,BUN,CREAT,LYTES,CA Speci men Type: PLASMA 06:39 AM [facility] Comment: Testin g Performed on EpiCrystals (405) SN:[id number] Ordering Provid er: ISATU TODD Report Released Date/Time: Dec 07, 2021 10:32 AM Reporting Lab: [employer] T [facility] [address] [facility] [address] Performing Lab: [facility] [address] [facility] [address] UREA NITROGEN 6 L 7-25 SODIUM 136 135-145 POTASSIUM 3.3 L 3.5-5.0 CHLORIDE 104 100-110 CARBON DIOXIDE 22 20-30 ANION GAP 10 4-16 GLUCOSE 133 H 65-100 CREATININE 0.76 0.5-1.5 CALCIUM 8.4 L 8.5-10.5 eGFR(CKD-EPI 2020) >90.0 >60 Dec 08, 2021 06:39 AM [facility] [employer] T [facility] CBC PROFILE Sp ecimen Type: BLOOD No comment enter ed. Ordering Provid er: ISATU TODD Report Released Date/Time: Dec 07, 2021 10:32 AM Reporting Lab: [facility] [address] [facility] [address] Performing Lab: [facility] [address] [facility] WBC [...] NRBC 0.00 0-0 Dec 07, 2021 06:42 [facility] LIVER PROFILE Specimen Typ e: PLASMA AM [facility] Comment: Tests performed on EpiCrystals (405 SN:[id number] Ordering Provid er: PORFIRIO WALTERS Report Released Date/Time: Dec 06, 2021 06:57 PM Reporting Lab: [facility] [address] [facility] [address] Performing Lab: [facility] [address] [facility] [address] PROTEIN, TOTAL 5.7 L 6.0-8.5 ALBUMIN 2.4 L 3.2-5.0 BILIRUBIN, TOTAL 0.4 0.2-1.2 ALKALINE PHOSPHATASE 109 40-150 ALT(SGPT) 10 7-52 AST(SGOT) 15 5-34 FIB-4 SCORE 1.92 <2.67 Dec 07, 2021 [facility] P[facility] GLU,BUN,CREAT,LYTES,CA Speci men Type: PLASMA 06:42 AM [facility] Comment: Tests performed on EpiCrystals (405) SN:[id number] Ordering Provid er: PORFIRIO WALTERS Report Released Date/Time: Dec 06, 2021 06:57 PM Reporting Lab: [place] [facility] [address] [facility] [address] Performing Lab: [place] [facility] [address] [facility] [address] UREA NITROGEN 9 7-25 SODIUM 135 135-145 POTASSIUM 3.5 3.5-5.0 CHLORIDE 103 100-110 CARBON DIOXIDE 22 20-30 ANION GAP 10 4-16 GLUCOSE 92 65-100 CREATININE 0.73 0.5-1.5 CALCIUM 8.0 L 8.5-10.5 eGFR(CKD-EPI 2020) >90.0 >60 Dec 07, 2021 06:42 AM [place] CBC PROFILE Specimen Type: BLOOD [facility] No comment enter ed. Ordering Provid er: PORFIRIO WALTERS Report Released Date/Time: Dec 06, 2021 06:57 PM Reporting Lab: [place] [facility] [address] [facility] [address] Performing Lab: [facility] [address] [facility] [address] WBC 5.7 4.5-11.0 RBC 4.15 L 4.23-5.66 [...] [facility] %) AUTOMATED Comment: Tests performed on EpiCrystals (405) SN:[id number] Ordering Provid er: ISATU TODD Report Released Date/Time: Dec 07, 2021 10:28 AM Reporting Lab: [place] [facility] [address] [facility] [address] Performing Lab: [place] [facility] [address] [facility] [address] RETICULOCYTES (%) AUTOMATED 1.23 0. 6-2.0 RETICULOCYTES (ABS) AUTOMATED 0.052 0.030-0.090 Dec 06, 2021 09:45 [place] MRSA SURVL NARES Specimen Ty pe: NARES PM [facility] DNA No comment enter ed. Ordering Provid er: ALVARO VARGHESE Report Released Date/Time: Dec 07, 2021 02:20 AM Reporting Lab: [place] [facility] [address] [facility] [address] Performing Lab: [place] [facility] [address] [facility] [address] MRSA SURVL NARES DNA NEGATIVE NEGATIVE Dec 06, 2021 06:00 [place] URINALYSIS W/REFLEX TO Speci men Type: URINE PM [facility] CULTURE No comment enter ed. Ordering Provid er: JELANI SÁNCHEZ Report Released Date/Time: Dec 06, 2021 11:57 AM Reporting Lab: [place] [facility] [address] [facility] [address] Performing Lab: [place] [facility] [address] [facility] [address] URINE COLOR Arlin YELLOW SPECIFIC GRAVITY 1.029 [...] 21, RIVER VARIANT Comment: https://www.cdc.gov/coronavirus/2019-ncov/cases-updates/variant- surveillance/variant-info.html The [employer] SARS CoV 2 STinser Research Assay-GX is a next-generation sequencing (NGS) assa 2021 [facility] SEQUENCING y that determine s the complete genome sequence of the SARS-CoV-2 virus. The assay contains variant-tolerant primers to broaden and improve the coverage for variant detection and increase the sensitivity 12:00 [facility] PNL(WH) of the panel to enable detection from lower viral titer samples. The assay is run on the [employer] Sequencer, which performs automated library preparation, sequencing, analysis, and reporting. PM The sequence an alysis includes determination of viral phylogenetic lineage by comparison to the reference strain Wuhan-Hu-1, GenBank: [id number]. Sequence determination may not be possible owing [...] Lab: [facility] [address] [facility] [address] Performing Lab: [facility] [address] [facility] [address] SARS-CoV-2 CLADE() 22C (OMICRON) SARS-CoV-2 LINEAGE() BA.2.12.1 Dec 06, 2021 12:00 [facility] COVID-19 AG SCREEN Specimen Type: NASAL CAVITY PM [facility] PANEL BINAX(405) Comment: Testi ng Performed By: Mike Briscoe Ordering Provid er: JELANI SÁNCHEZ Report Released Date/Time: Dec 08, 2021 08:23 AM Reporting Lab: [facility] [address] [facility] [address] Performing Lab: [facility] [address] [facility] [address] COVID-19 AG SCRN(wrj BINAX) POSITIVE HH NE G Dec 06, 2021 [facility] P4 GLU,BUN,CREAT,LYTES,CA Speci men Type: PLASMA 12:00 PM [facility] Comment: Testin g Performed on Pham Spanish Linguist (405) SN:[id number] Ordering Provid er: JELANI SÁNCHEZ Report Released Date/Time: Dec 06, 2021 11:57 AM Reporting Lab: [facility] [address] [facility] [address] Performing Lab: [facility] [address] [facility] [address] UREA NITROGEN 13 7-25 SODIUM 138 135-145 POTASSIUM 3.8 3.5-5.0 CHLORIDE 103 100-110 CARBON DIOXIDE 23 20-30 ANION GAP 12 4-16 GLUCOSE 105 H 65-100 CREATININE 0.90 0.5-1.5 CALCIUM 8.7 8.5-10.5 eGFR(CKD-EPI 2020) >90.0 >60 Dec 06, 2021 12:00 PM [facility] LIVER PROFILE Sp ecimen Type: PLASMA Comment: Testin g Performed on Pham Spanish Linguist (405) [id number] Ordering Provid er: JELANI SÁNCHEZ Report Released Date/Time: Dec 06, 2021 11:57 AM Reporting Lab: [facility] [place] [facility] [address] [facility] [address] Performing Lab: [facility] [address] [facility] [address] PROTEIN, TOTAL 6.6 6.0-8.5 ALBUMIN 2.8 L 3.2-5.0 BILIRUBIN, TOTAL 0.6 0.2-1.2 ALKALINE PHOSPHATASE 134 40-150 ALT(SGPT) 13 7-52 AST(SGOT) 18 5-34 FIB-4 SCORE 1.94 <2.67 Dec 06, 2021 12:00 PM [facility] TROPONIN II Sp ecimen Type: PLASMA Comment: Tests performed on Ph[employer] Spanish [employer]ist (405) [id number] Ordering Provid er: JELANI SÁNCHEZ Report Released Date/Time: Dec 06, 2021 11:57 AM Reporting Lab: [facility] [address] [facility] [address] Performing Lab: [facility] [address] [facility] [address] TROPONIN II 0.03 0.00-0.29 Dec 06, 2021 12:00 PM [facility] BNP(P) Sp ecimen Type: PLASMA Comment: Tests performed on Ph[employer] Spanish L[employer]ist (405) [id number] Ordering Provid er: JELANI SÁNCHEZ Report Released Date/Time: Dec 06, 2021 11:57 AM Reporting Lab: [facility] [address] [facility] [address] Performing Lab: [facility] [address] [facility] [address] BNP(P) 224.8 H 10-100 Dec 06, 2021 [facility] COVID-19+FLU/RSV DIAGNOSTIC Spe cimen Type: NASOPHARYNX 12:00 PM [facility] PANEL(405) Comment: Tests performed on [employer] (405) Critical results called to and read back by: ALESHIA WILKINSON RN 12/06/21 @ 1312 Ordering Provid er: JELANI SÁNCHEZ Report Released Date/Time: Dec 06, 2021 11:57 AM Reporting Lab: [facility] [address] [facility] [address] Performing Lab: [place] [facility] [address] [facility] [address] FLU A(PCR) NEGATIVE NEGATIVE FLU B(PCR) NEGATIVE NEGATIVE RSV(PCR) NEGATIVE NEGATIVE COVID-19([id number]) DETECTED HH NO T DETECTED Dec 06, 2021 12:00 [facility] Sp ecimen Type: BLOOD No comment enter ed. Ordering Provid er: JELANI SÁNCHEZ Report Released Date/Time: Dec 06, 2021 11:57 AM Reporting Lab: [facility] [address] [facility] [address] Performing Lab: [facility] [address] [facility] [address] WBC 7.2 4.5-11.0 RBC 4.86 4.23-5.66 HGB [...] 2021 07:56 /min mm[Hg] RIVER PM T [facility] Dec 11, 3 WHITE 2021 07:49 RIVER PM T [facility] Dec 11, 98.3 F 98 127/83 18 /min 97 % 0 WHITE 2021 02:50 /min mm[Hg] RIVER PM T [facility] Dec 11, 0 WHITE 2021 01:57 RIVER PM T [facility] Dec 11, 0 WHITE 2021 08:49 RIVER AM [facility] Social [...] took place. Date/Time Smoking Status/Tobacco Use Comment [facility] Apr 01, 2020 01:16 PM QUIT TOBACCO USE 1-7 YEARS AGO [facility] Mar 24, 2020 03:00 PM QUIT TOBACCO USE 1-7 YEARS AGO [facility] Feb 21, 2019 04:11 PM QUIT TOBACCO USE 1-7 YEARS AGO [facility] Feb 20, 2019 03:38 PM QUIT TOBACCO USE 1-7 YEARS AGO [facility] Feb 03, 2019 09:50 AM QUIT TOBACCO USE 1-7 YEARS AGO [facility] May 25, 2016 11:53 PM QUIT TOBACCO USE IN PAST YEAR [facility] May 23, 2016 06:57 PM QUIT [...] TOBACCO USE IN PAST YEAR [facility] Mar 16, 2016 12:50 PM V1-PT DECLINES [...] W/WO CONTRAST: MARYELLEN LONG LUCAS LARES N [id number] -1950 [facility] Exm Date: DEC 13, 2021@12:57 Req Phys: ISATU TODD Loc: OP Unknown/0 12-15-2021@13:20 Img Loc: MRI IMAGING (OOS) Service: ZGENERAL MEDICINE (Case [id number] COMPLETE) MRI ABDOMEN W/WO CONTRAST (M RI Detailed) CPT:57193 Reason for Study: further characterization of a [...] new lyphadenopathy REQUESTING MD: Isatu Todd PAGER: [phone] PHONE: [phone] Weight: 232.2 lb [105.32 kg] (12/12/2021 05:00) [...] need to arrange for a pile driver engineer to take him/her home after the MRI [...] 15, 2021 Date Verified: DEC 15, 2021 [employer] E-Sig:/ES/MARYELLEN LONG Report: MRI ABDOMEN W/WO CONTRAST [...] MALIGNANCY Primary Interpreting Staff: Staff AMELIA THOMAS ([employer]) / Dec 10, 2021 09:[address] ABDOMEN & PELVIS: [facility]TSIDE [facility] LUCAS [facility]EEK N [id number] -1950 M SERVICE [facility] Exm Date: DEC 10, 2021@09:30 Req Phys: ISATU TODD Loc: 1S MED/12-10@10:57 Img Loc: CT SCAN (OOS) Service: [facility] MEDICINE (Case [id number] COMPLETE) CT ABD & PELVIS WITHOUT CONT RAST (CT Detailed) CPT:92663 Reason for Study: 71 yo male with [...] INDEX - NO HEIGHTS FOUND Pager number: [phone] STAT orders MUST be call ed to RADIOLOGY [phone] to speak to the appropriate telecommunications switch technician. Report Status: Verified Date Reported: DEC 10, 2021 Date Verified: DEC 10, 2021 [employer] E-Sig: Report: EXAM: CT abdomen and pelvis [...] ph nodes. READING PHYSICIAN: Ramone Munoz D.O. [phone] 12/10/2021 10:55 EDT [facility] National Teleradiology Program [phone] (For Medical Practitioner Use Only ) [address], [facility] [address] [place] [address] Attention Patients / Veterans: If you have ques tions or concerns about these test results, please contact your o rdering provider or primary care team. Primary Diagnostic Code: SIGNIFICANT ABNORMALIT Y, ATTN NEEDED Primary Interpreting Staff: RADIOLOGY,OUTSIDE SERVICE, Staff Physician / Dec 09, 2021 07:34 AM BASW (MODIFIED): JESSIE CHENEY TARA [facility] JCT LUCAS MEEK [id number] -1950 M [facility] Exm Date: DEC 09, 2021@07:34 Req Phys: ISATU TODD Yao Manjarrez Loc: 1S MED/12-09@11:26 Img Loc: XRAY (OOS) Service: [facility] MEDICINE (Case [id number] COMPLETE) BASW (MODIFIED) (RAD Detaile d) CPT:14863 Contrast Media : Barium Reason for Study: dysphagia ?esophageal spasm Clinical History: Report Status: Verified Date Reported: DEC 09, 2021 Date Verified: DEC 09, 2021 [employer] E-Sig:/ES/JESSIE CHENEY Report: BASW (MODIFIED) , 12/09/2021 [...] REQUIRED Primary Interpreting Staff: JESSIE CHENEY, RADIOLOGIST ([employer]) /TLC Dec 06, 2021 12:[address] CHEST (INCLUDES ADRENALS): [facility] [id number] -1950 [facility] Ex[facility] Date: DEC 06, 2021@12:59 Req Phys: GONZALOJELANI Loc: [facility] ED DAYS M 1RD (Req'g Loc) Img Loc: CT SCAN (OOS) Service: Unknown (Case [id number] COMPLETE) CT THORAX W/O CONT (CT Detai led) CPT:79889 Reason for Study: Opacification right chest Clinical History: No contrast allergy BUN: 13 (12/06/21 12:00) CREATI: 0.90 (12/06/21 12:00) eGFR 05/16/21 09:43 52 L Weight: 232.6 lb [105.51 kg] (12/06/2021 11:40) BODY MASS INDEX - NO HEIGHTS FOUND Pager number: [phone] STAT orders MUST be called t o RADIOLOGY [phone] to speak to the appropriate telecommunications switch technician. Indications - Other: Opacification right chest, covid positive, lung cancer histo Report Status: Verified Date Reported: DEC 06, 2021 Date Verified: DEC 06, 2021 [employer] E-Sig:/ES/JESSIE CHENEY Report: CT THORAX W/O CONT [...] REQUIRED Primary Interpreting Staff: JESSIE CHENEY, RADIOLOGIST ([employer]) Primary Interpreting Resident: PRINCE CHAMPION, Resident /BR Dec 06, 2021 11:58 AM CHEST SINGLE VIEW: JESSIE CHENEYT LUCAS MEEK N [id number] -1950 [facility] Exm Date: DEC 06, 2021@11:58 Req Phys: JELANI SÁNCHEZ Pat Loc: [facility] ED DAYS M 1RD (Req'g Loc) Img Loc: XRAY (OOS) Service: Unknown (Case [id number] COMPLETE) CHEST SINGLE VIEW (RAD Detai led) CPT:30137 Proc Modifiers : PORTABLE EXAM Reason for Study: SOB, home covid test positive Clinical History: Report Status: Verified Date Reported: DEC 06, 2021 Date Verified: DEC 06, 2021 [employer] E-Sig:/ES/JESSIE CHENEY Report: Exam type: Chest x-ray [...] REQUIRED Primary Interpreting Staff: JESSIE CHENEY, RADIOLOGIST ([employer]) /TLC Pathology Reports: +/- 30 days of [...] MILLER LOCAL TITLE: LR SURGICAL PATHOLOGY REPORT [facility] STANDARD TITLE: PATHOLOGY REPORT DATE OF NOTE: JAN 03, 2022@10:28:01 ENTRY DATE: JAN 03, 2022@10:28:01 AUTHOR: NIURKA MILLER EXP COSIGNER: URGENCY: STATUS: COMPLETED $APHDR Reporting Lab: [facility] [CLIA# [id number]] [address] [place] [address] - - - - - - [...] automatically d ocumented from SURGERY package case #[id number] Field (#32) PRINCIPAL PRE-OP DIAGNOSIS, (#.72) OTHER [...] automatically d ocumented from SURGERY package case #[id number] Field (#34) PRINCIPAL POST-OP DIAG, (#.74) OTHER [...] Label: Lucas Meek Paperwork: Lucas Meek Cassette: [id number];..;KALYANI;.;405;[phone] Specimen is labeled: ES bx Received in formalin are several pieces of pale boyd and brown tissue, 1.2 x 0.7 cm in aggregate. Submitted entirely in 1 cassette [id number];..;KALYANI;.;405;[id number] SAW 12/15/2021 Microscopic exam: *+* MODIFIED REPORT [...] in rendering the final pathologic diagnosis. [address] [address] CPT: 03036 /emely/ NIURKA Yeung MD Signed Jan 03, 2022@10:28 Performing Laboratory: Surgical Pathology Report Performed By: [facility] [CLIA# [id number]] [address] [place] [address] $FTR - - - - - [...] - - LUCAS MEEK STANDARD FORM 515 ID:[id number] SEX:M :1950 AGE: 71 LOC: SDM END PCP: Isatu Todd /emely/ NIURKA MILLER Staff Signed: 01/03/2022 10:28 Dec 21, 2021 11:46 AM LR SURGICAL PATHOLOGY REPORT: STEFANY MILLER [facility] LOCAL TITLE: LR SURGICAL PATHOLOGY REPORT [facility] STANDARD TITLE: PATHOLOGY REPORT DATE OF NOTE: DEC 21, 2021@11:46:59 ENTRY DATE: DEC 21, 2021@11:46:59 AUTHOR: NIURKA MILLER EXP COSIGNER: URGENCY: STATUS: COMPLETED $APHDR Reporting Lab: [facility] [CLIA# [id number]] [address] [place] [address] - - - - - - [...] automatically d ocumented from SURGERY package case #[id number] Field (#32) PRINCIPAL PRE-OP DIAGNOSIS, (#.72) OTHER [...] automatically d ocumented from SURGERY package case #[id number] Field (#34) PRINCIPAL POST-OP DIAG, (#.74) OTHER [...] Label: Lucas Meek Paperwork: Lucas Meek Cassette: [id number];..;KALYANI;.;405;[phone] Specimen is labeled: ES bx Received in formalin are several pieces of pale boyd and brown tissue, 1.2 x 0.7 cm in aggregate. Submitted entirely in 1 cassette [id number];..;KALYANI;.;405;[id number] SAW 12/15/2021 Microscopic exam: DIAGNOSIS: A. 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 Kendell long. TIARA Coombs was notified on 12/21/21. The attending pathologist who signature mansoor ears on this report has reviewed all diagnostic slides and has edited t he gross and/or microscopic portion of this report in rendering the final pathologic diagnosis. [address] [address] CPT: 99333 /emely/ NIURKA Yeung MD Signed Dec 21, 2021@11:46 Performing Laboratory: Surgical Pathology Report Performed By: [facility] [CLIA# [id number]] [address] [place] [address] $FTR - - - - - [...] - - LUCAS MEEK STANDARD FORM 515 ID:[id number] SEX:M :1950 AGE: 71 LOC: [facility] END PCP: Isatu Todd /charmaine Yeung MD Signed: 12/21/2021 11:46 Dec 06, 2021 03:30 PM LR MICROBIOLOGY REPORT: [facility] Reporting Lab: [facility] [CLIA# [id number]] [address] [place] [address] Accession [UID]: [id number] [[id number]] Receiv ed: Dec 06, 2021@16:14 Collection sample: BLOOD CUL T BOTTLE(NIRMAL/AERO)Collection date: Dec 06, 2021 15:30 Site/Specimen: BLOOD Provider: JELANI SÁNCHEZ Comment on specimen: LAC Test(s) ordered: BLOOD CULTURE ANAEROBI C....... completed: Dec 12, 2021 06:18 * BACTERIOLOGY FINAL REPORT => Dec 12, 2021 06:1 8 TECH CODE: [id number] Bacteriology Remark(s): NO GROWTH IN 5 DAYS =--=--=--=--=--=--=--=--=--=--=--=--=--= --=--=--=--=--=--=--=--=--=--=--=--=-- Performing Laboratory: Bacteriology Report Performed By: [facility] [CLIA# [id number]] [address] [place] [address] Dec 06, 2021 03:30 PM LR MICROBIOLOGY REPORT: [facility] Reporting Lab: [facility] [CLIA# [id number]] [address] [place] [address] Accession [UID]: [id number] [[id number]] Receiv ed: Dec 06, 2021@16:14 Collection sample: BLOOD CUL T BOTTLE(NIRMAL/AERO)Collection date: Dec 06, 2021 15:30 Site/Specimen: BLOOD Provider: JELANI SÁNCHEZ Comment on specimen: LAC Test(s) ordered: BLOOD CULTURE AEROBIC. ........ completed: Dec 12, 2021 06:17 * BACTERIOLOGY FINAL REPORT => Dec 12, 2021 06:1 7 TECH CODE: [id number] Bacteriology Remark(s): NO GROWTH IN 5 DAYS =--=--=--=--=--=--=--=--=--=--=--=--=--= --=--=--=--=--=--=--=--=--=--=--=--=-- Performing Laboratory: Bacteriology Report Performed By: [facility] [CLIA# [id number]] [address] [place] [address]
--- OUTSIDE RECORDS SUMMARY | 2022-01-19 09:12 | XMS_ITS ---
DAILY HOSPITALIZATION DATA [facility] Encounter Summary Created on:December 11, 2021 Patient:LUCAS MEEK Sex:Male :1950 Author Organization [facility] Address [address] [place] [address] Support Name Relationship Address Phone YUSRA MEEK Unavailable [address] [place] [address] YUSRA MEEK Unavailable [address] [place] [facility] [place] [place] [address] CLAY MOSLEY Unavailable Unavailable SJ SANTACRUZ Unavailable [...] MEDICARE MEDICARE PART Jun 18, PART A [id number] DO KALYANI PATIENT (WNR) (M) A 2016 13A 1 UGLAS MEDICARE MEDICARE PART Jun 18, PART B [id number] DO KALYANI PATIENT (WNR) (M) B 2016 13A 1 [place]AS MEDICARE MEDICARE PART Jun 18, PART A [id number] KALYANIDO PATIENT (WNR) (M) A 2017 VH81 2 [place]AS MEDICARE MEDICARE PART Jun 18, PART B [id number] DO KALYANI PATIENT (WNR) (M) B 2017 VH81 2 [place]AS UNITED MEDICARE MCR(Jun 18 [id number] Luz MEEK PATIENT HEALTHCARE ADVANTAGE NR) 2021 37 0 [facility] (WNR) Selected Encounter This section includes the information on record at [place] for the Encounter. Date/Time Encounter Type Encounter Description Reason Provider Source Dec 11, 2021 12:39 Inpatient Visit DAILY HOSPITALIZATION DATA PM IHE Encounter Template Text not used by [place] [...] NONE [place] [facility] Jan 06, 2022 02:00 PM [place] [facility] Jan 10, 2022 11:30 AM AM[facility]ULATORY - MEDICINE [facility] Jan 24, 2022 08:00 [place] [facility] Feb 21, 2022 10:00 AM [place]BUL[place] - [place] [facility] Mar 21, 2022 10:30 AM AMBULATORY - [...] The data comes from all [place] treatment [facility]. Test Date/Time Test Type Test Details Facility Name October 31, 2021 07:37 AM Consult Order [facility]-EGD [facility] Cons Clerk Of Works[employer] Choice November 15, 2021 10:37 AM Consult Order [facility] CARE-PODIATRY Cons Clerk Of [employer] Dec 06, 2021 12:52 PM Pharmacy [...] [place] OUTPATIENT Cons [facility] Clerk Of Works[employer] Choice Jan 15, 2022 10:08 PM Consult Order [facility] CARE-PALLIATIVE CARE Cons Clerk Of Works[employer] Lab Results: +/- 30 days of [...] Range Comment Dec 15, 2021 [place] P4 GLU,BUN,CREAT,LYTES,CA Speci men Type: PLASMA 06:43 AM [facility] Comment: Tests performed on Sapheon (405) SN:[id number] Ordering Provid er: ISATU TODD Report Released Date/Time: Dec 11, 2021 07:42 AM Reporting Lab: [facility] T [facility] [address] [facility] [address] Performing Lab: [facility] [address] [facility] [facility] [address] UREA NITROGEN 9 7-25 SODIUM 137 135-145 [...] T [facility] [address] [facility] [address] Performing Lab: [facility] [address] [facility] [address] WBC 5.7 4.5-11.0 RBC 4.22 L 4.23-5.66 [...] CYTOGENETIC Specimen Type: ESOPHAGUS 02:59 PM [facility] Comment: ~For T est: CYTOGENETIC FISH([facility]) ~FISH HER 2 NUE, FFPE See full report in Synthace Image display viewer/tab#LAB-Reference Ordering Provid er: NIURKA MILLER Report Released Date/Time: Dec 21, 2021 12:11 PM Reporting Lab: [facility] [address] [facility] [facility] [address] Performing Lab: [facility] CYTOGENETIC FISH([facility]) comment Dec 14, 2021 [facility] P4 GLU,BUN,CREAT,LYTES,CA Speci men Type: PLASMA 06:27 AM [facility] Comment: Tests performed on Sapheon (405) SN:[id number] Ordering Provid er: ISATU TODD Report Released Date/Time: Dec 11, 2021 07:42 AM Reporting Lab: [facility] [address] [facility] [facility] [address] Performing Lab: [facility] [address] [facility] [address] UREA NITROGEN 10 7-25 SODIUM 137 135-145 [...] Lab: [facility] [address] [facility] [address] Performing Lab: [facility] [address] [facility] [facility] [address] WBC 6.0 4.5-11.0 RBC 4.29 4.23-5.66 HGB [...] [facility] Comment: Tests performed on Sapheon (405) SN:[id number] Ordering Provid er: ISATU TODD Report Released Date/Time: Dec 11, 2021 07:42 AM Reporting Lab: [facility] [address] [facility] [address] Performing Lab: [facility] [address] [facility] [facility] [address] UREA NITROGEN 12 7-25 SODIUM 136 135-145 [...] Lab: [facility] [address] [facility] [address] Performing Lab: [facility] [address] [facility] [address] WBC 5.6 4.5-11.0 RBC 4.28 4.23-5.66 HGB [...] [facility] Comment: Tests performed on Sapheon (405) SN:[id number] Ordering Provid er: ISATU TODD Report Released Date/Time: Dec 11, 2021 07:42 AM Reporting Lab: [facility] [address] [facility] [address] Performing Lab: [facility] [address] [facility] [address] UREA NITROGEN 11 7-25 SODIUM 139 135-145 [...] 07:22 AM Reporting Lab: [facility] [address] [facility] [address] Performing Lab: [facility] [address] [facility] [address] WBC 5.5 4.5-11.0 RBC 4.37 4.23-5.66 HGB [...] 0.00 0-0 Dec 12, 2021 06:00 AM [employer] [facility] MAGNESIUM Sp ecimen Type: PLASMA Comment: Testin g Performed on Sapheon (405) SN:[id number] Ordering Provid er: ISATU TODD Report Released Date/Time: Dec 12, 2021 08:24 AM Reporting Lab: [place] [facility] [facility] [address] [facility] [address] Performing Lab: [place] [facility] [address] [facility] [facility] [address] MAGNESIUM 1.8 1.6-2.6 Dec 12, 2021 06:00 AM [employer] [facility] PHOSPHORUS Sp ecimen Type: PLASMA Comment: Testin g Performed on Sapheon (405) SN:[id number] Ordering Provid er: ISATU TODD Report Released Date/Time: Dec 12, 2021 08:24 AM Reporting Lab: [place] [facility] [address] [facility] [address] Performing Lab: [place] [facility] [address] [facility] [facility] [address] PHOSPHORUS 3.1 2.5-5.0 Dec 11, 2021 06:15 AM [place] [facility] Stion[facility] ELECTROLYTES Sp ecimen Type: PLASMA Comment: Tests performed on Sapheon (405) SN:[id number] Ordering Provid er: ISATU TODD Report Released Date/Time: Dec 10, 2021 07:22 AM Reporting Lab: [place] [facility] [facility] [address] [facility] [address] Performing Lab: [place] [facility] [address] [facility] [address] SODIUM 137 135-145 POTASSIUM 4.3 3.5-5.0 CHLORIDE 108 100-110 CARBON DIOXIDE 20 20-30 ANION GAP 9 4-16 Dec 11, 2021 06:15 AM [place] [facility] CBC PROFILE Sp ecimen Type: BLOOD Comment: Result s checked Ordering Provid er: ISATU TODD Report Released Date/Time: Dec 10, 2021 07:22 AM Reporting Lab: [place] [facility] [address] [facility] [address] Performing Lab: [place] [facility] [address] [facility] [address] WBC 5.8 4.5-11.0 RBC 4.37 4.23-5.66 HGB [...] ecimen Type: PLASMA Comment: Tests performed on Sapheon (997) SN:[id number] Results checked Ordering Provid er: ISATU TODD Report Released Date/Time: Dec 11, 2021 07:44 AM Reporting Lab: [facility] [facility] [address] [facility] [address] Performing Lab: [place] [facility] [address] [facility] [address] PHOSPHORUS 3.0 2.5-5.0 Dec 10, 2021 08:05 AM [place] [facility] MAGNESIUM Sp ecimen Type: PLASMA Comment: [place] [id number] on Dec 10, 2021@08:31 Tests performed on Sapheon (405) SN:[id number] Ordering Provid er: ISATU TODD Report Released Date/Time: Dec 10, 2021 07:22 AM Reporting Lab: [place] [facility] [address] [place] [facility] [place] [place] [address] Performing Lab: [place] [facility] [address] [place] [facility] [place] [place] [address] MAGNESIUM 1.7 1.6-2.6 Dec 10, 2021 08:05 AM [place] [facility] PHOSPHORUS Sp ecimen Type: PLASMA Comment: [place] [id number] on Dec 10, 2021@08:31 Tests performed on Sapheon (405) SN:[id number] Ordering Provid er: ISATU TODD Report Released Date/Time: Dec 10, 2021 07:22 AM Reporting Lab: [place] [facility] [address] [place] [facility] [place] [address] Performing Lab: [place] [facility] [address] [place] [facility] [place] [place] [address] PHOSPHORUS 1.8 L 2.5-5.0 Dec 10, 2021 08:05 AM [place] UREA NITROGEN Specimen Type: PLASMA [facility] Comment: [place] [id number] on Dec 10, 2021@08:31 Tests performed on Sapheon (405) SN:[id number] Ordering Provid er: ISATU TODD Report Released Date/Time: Dec 10, 2021 07:22 AM Reporting Lab: [place] [facility] [address] [place] [facility] [place] [address] Performing Lab: [place] [facility] [address] [place] [facility] [place] [address] UREA NITROGEN 8 7-25 Dec 10, 2021 08:05 AM [place] [facility] CALCIUM Sp ecimen Type: PLASMA Comment: [place] [id number] on Dec 10, 2021@08:31 Tests performed on Sapheon (405) SN:[id number] Ordering Provid er: ISATU TODD Report Released Date/Time: Dec 10, 2021 07:22 AM Reporting Lab: [place] [facility] [address] [facility] [address] Performing Lab: [place] [facility] [address] [facility] [address] CALCIUM 8.3 L 8.5-10.5 Dec 10, 2021 08:05 AM [place] [facility] ELECTROLYTES Sp ecimen Type: PLASMA Comment: [place] [id number] on Dec 10, 2021@08:31 Tests performed on Pham Buzz All Stars (405) SN:[id number] Ordering Provid er: ISATU TODD Report Released Date/Time: Dec 10, 2021 07:22 AM Reporting Lab: [place] [facility] [address] [facility] [address] Performing Lab: [place] [facility] [address] [facility] [address] SODIUM 139 135-145 POTASSIUM 3.7 3.5-5.0 CHLORIDE 107 100-110 CARBON DIOXIDE 24 20-30 ANION GAP 8 4-16 Dec 10, 2021 08:05 [place] CREATININE WITH eGFR Specime n Type: PLASMA AM [facility] PANEL Comment: [place] [id number] on Dec 10, 2021@08:31 Tests performed on Pham Buzz All Stars (405) SN:[id number] Ordering Provid er: ISATU TODD Report Released Date/Time: Dec 10, 2021 07:22 AM Reporting Lab: [place] [facility] [address] [facility] [address] Performing Lab: [place] [facility] [address] [facility] [address] CREATININE 0.78 0.5-1.5 eGFR(CKD-EPI 2020) >90.0 >60 Dec 10, 2021 08:05 AM [place] [facility] GLUCOSE Sp ecimen Type: PLASMA Comment: [place] [id number] on Dec 10, 2021@08:31 Tests performed on Pham Buzz All Stars (405) SN:[id number] Ordering Provid er: ISATU TODD Report Released Date/Time: Dec 10, 2021 07:22 AM Reporting Lab: [place] [facility] [address] [facility] [address] Performing Lab: [place] [facility] [address] [facility] [address] GLUCOSE 144 H 65-100 Dec 10, 2021 08:05 AM [facility] CBC PROFILE Sp ecimen Type: BLOOD No comment enter ed. Ordering Provid er: ISATU TODD Report Released Date/Time: Dec 10, 2021 07:22 AM Reporting Lab: [place] [facility] [address] [facility] [address] Performing Lab: [place] [facility] [address] [facility] [address] WBC 7.0 4.5-11.0 RBC 4.54 4.23-5.66 HGB [...] ecimen Type: PLASMA Comment: Tests performed on Sapheon (969) SN:[id number] Ordering Provid er: ISATU TODD Report Released Date/Time: Dec 08, 2021 10:23 AM Reporting Lab: [facility] [address] [facility] [address] Performing Lab: [facility] [address] [facility] [address] MAGNESIUM 1.6 1.6-2.6 Dec 09, 2021 [facility] P4 GLU,BUN,CREAT,LYTES,CA Speci men Type: PLASMA 06:46 AM [facility] Comment: Tests performed on Sapheon (405) SN:[id number] Ordering Provid er: ISATU TODD Report Released Date/Time: Dec 08, 2021 05:00 PM Reporting Lab: [facility] [address] [facility] [address] Performing Lab: [facility] [address] [facility] [address] UREA NITROGEN 6 L 7-25 SODIUM 134 [...] Lab: [facility] [address] [facility] [address] Performing Lab: [facility] [address] [facility] [address] WBC 7.1 4.5-11.0 RBC 4.40 4.23-5.66 HGB [...] 0.00 0-0 Dec 08, 2021 06:39 AM [employer] T [facility] MAGNESIUM Sp ecimen Type: PLASMA Comment: Testin g Performed on Sapheon (405) SN:[id number] Ordering Provid er: ISATU TODD Report Released Date/Time: Dec 07, 2021 10:32 AM Reporting Lab: [facility] [address] [facility] [address] Performing Lab: [facility] [address] [facility] [address] MAGNESIUM 1.5 L 1.6-2.6 Dec 08, 2021 [employer] T P4 GLU,BUN,CREAT,LYTES,CA Speci men Type: PLASMA 06:39 AM [facility] Comment: Testin g Performed on Sapheon (405) SN:[id number] Ordering Provid er: ISATU TODD Report Released Date/Time: Dec 07, 2021 10:32 AM Reporting Lab: [place] T [facility] [address] [facility] [address] Performing Lab: [facility] [address] [facility] [address] UREA NITROGEN 6 L 7-25 SODIUM 136 135-145 POTASSIUM 3.3 L 3.5-5.0 CHLORIDE 104 100-110 CARBON DIOXIDE 22 20-30 ANION GAP 10 4-16 GLUCOSE 133 H 65-100 CREATININE 0.76 0.5-1.5 CALCIUM 8.4 L 8.5-10.5 eGFR(CKD-EPI 2020) >90.0 >60 Dec 08, 2021 06:39 AM [place] [employer] T [facility] CBC PROFILE Sp ecimen Type: BLOOD No comment enter ed. Ordering Provid er: ISATU TODD Report Released Date/Time: Dec 07, 2021 10:32 AM Reporting Lab: [facility] [address] [facility] [address] Performing Lab: [facility] [address] [facility] [address] WBC 8.4 4.5-11.0 RBC 4.75 4.23-5.66 HGB [...] NRBC 0.00 0-0 Dec 07, 2021 [facility] P4 GLU,BUN,CREAT,LYTES,CA Speci men Type: PLASMA 06:42 AM [facility] Comment: Tests performed on Sapheon (405 SN:[id number] Ordering Provid er: PORFIRIO WALTERS Report Released Date/Time: Dec 06, 2021 06:57 PM Reporting Lab: [facility] [address] [facility] [address] Performing Lab: [facility] [address] [facility] [address] UREA NITROGEN 9 7-25 SODIUM 135 135-145 POTASSIUM 3.5 3.5-5.0 CHLORIDE 103 100-110 CARBON DIOXIDE 22 20-30 ANION GAP 10 4-16 GLUCOSE 92 65-100 CREATININE 0.73 0.5-1.5 CALCIUM 8.0 L 8.5-10.5 eGFR(CKD-EPI 2020) >90.0 >60 Dec 07, 2021 06:42 [place] LIVER PROFILE Specimen Typ e: PLASMA AM VAOC Comment: Tests performed on [employer] Burglar Alarm Mechanic (405) SN:[id number] Ordering Provid er: PORFIRIO WALTERS Report Released Date/Time: Dec 06, 2021 06:57 PM Reporting Lab: [facility] [address] [facility] [address] Performing Lab: [facility] [address] [facility] [address] PROTEIN, TOTAL 5.7 L 6.0-8.5 ALBUMIN 2.4 L 3.2-5.0 BILIRUBIN, TOTAL 0.4 0.2-1.2 ALKALINE PHOSPHATASE 109 40-150 ALT(SGPT) 10 7-52 AST(SGOT) 15 5-34 FIB-4 SCORE 1.92 <2.67 Dec 07, 2021 06:42 AM [facility] [facility] CBC PROFILE Specimen Type: BLOOD [facility] No comment enter ed. Ordering Provid er: PORFIRIO WALTERS Report Released Date/Time: Dec 06, 2021 06:57 PM Reporting Lab: [facility] [address] [facility] [address] Performing Lab: [facility] [address] [facility] [address] WBC 5.7 4.5-11.0 RBC 4.15 L 4.23-5.66 [...] VAM[facility] %) AUTOMATED Comment: Tests performed on Sapheon (405) SN:[id number] Ordering Provid er: ISATU TODD Report Released Date/Time: Dec 07, 2021 10:28 AM Reporting Lab: [place] [facility] [address] [facility] [address] Performing Lab: [place] [facility] [address] [facility] [address] RETICULOCYTES (%) AUTOMATED 1.23 0. 6-2.0 RETICULOCYTES (ABS) AUTOMATED 0.052 0.030-0.090 Dec 06, 2021 09:45 [place] MRSA SURVL NARES Specimen Ty pe: NARES PM [facility] DNA No comment enter ed. Ordering Provid er: ALVARO VARGHESE Report Released Date/Time: Dec 07, 2021 02:20 AM Reporting Lab: [place] [facility] [address] [facility] [address] Performing Lab: [place] [facility] [address] [facility] [address] MRSA SURVL NARES DNA NEGATIVE NEGATIVE Dec 06, 2021 06:00 [place] URINALYSIS W/REFLEX TO Speci men Type: URINE PM [facility] CULTURE No comment enter ed. Ordering Provid er: JELANI SÁNCHEZ Report Released Date/Time: Dec 06, 2021 11:57 AM Reporting Lab: [place] [facility] [address] [facility] [address] Performing Lab: [place] [facility] [address] [facility] [address] URINE COLOR Arlin YELLOW SPECIFIC GRAVITY 1.029 [...] 21, [place]IANT Comment: https://www.cdc.gov/coronavirus/2019-ncov/cases-updates/variant- surveillance/variant-info.html The [employer] SARS CoV 2 USEUM Research Assay-GX is a next-generation sequencing (NGS) assa 2021 [facility] SEQUENCING y that determine s the complete genome sequence of the SARS-CoV-2 virus. The assay contains variant-tolerant primers to broaden and improve the coverage for variant detection and increase the sensitivity 12:00 [facility] PNL(WH) of the panel to enable detection from lower viral titer samples. The assay is run on the [employer] Sequencer, which performs automated library preparation, sequencing, analysis, and reporting. PM The sequence an alysis includes determination of viral phylogenetic lineage by comparison to the reference strain Wuhan-Hu-1, GenBank: [id number]. Sequence determination may not be possible owing [...] Lab: [facility] [address] [facility] [address] Performing Lab: [facility] [address] [facility] [address] SARS-CoV-2 CLADE() 22C (OMICRON) SARS-CoV-2 LINEAGE() BA.2.12.1 Dec 06, 2021 12:00 [facility] COVID-19 AG SCREEN Specimen Type: NASAL CAVITY PM [facility] PANEL BINAX(405) Comment: Testi ng Performed By: Mike Briscoe Ordering Provid er: JELANI SÁNCHEZ Report Released Date/Time: Dec 08, 2021 08:23 AM Reporting Lab: [facility] [address] [facility] [address] Performing Lab: [facility] [address] [facility] [address] COVID-19 AG SCRN(wrj BINAX) POSITIVE HH NE G Dec 06, 2021 12:00 PM [facility] TROPONIN II Sp ecimen Type: PLASMA Comment: Tests performed on [employer]am Burgl[employer] Alarm Mechanic (405) SN:[id number] Ordering Provid er: JELANI SÁNCHEZ Report Released Date/Time: Dec 06, 2021 11:57 AM Reporting Lab: [facility] [address] [place] [facility] [place] [address] Performing Lab: [facility] [address] [facility] [address] TROPONIN II 0.03 0.00-0.29 Dec 06, 2021 12:00 PM [facility] LIVER PROFILE Sp ecimen Type: PLASMA Comment: Testin g Performed on [employer] Alarm Mechanic (405) SN:[id number] Ordering Provid er: JELANI SÁNCHEZ Report Released Date/Time: Dec 06, 2021 11:57 AM Reporting Lab: [facility] [address] [facility] [address] Performing Lab: [facility] [address] [facility] [address] PROTEIN, TOTAL 6.6 6.0-8.5 ALBUMIN 2.8 L 3.2-5.0 BILIRUBIN, TOTAL 0.6 0.2-1.2 ALKALINE PHOSPHATASE 134 40-150 ALT(SGPT) 13 7-52 AST(SGOT) 18 5-34 FIB-4 SCORE 1.94 <2.67 Dec 06, 2021 [facility] P4 GLU,BUN,CREAT,LYTES,CA Speci men Type: PLASMA 12:00 PM [facility] Comment: Testin g Performed on [employer]am [employer] Alarm Mechanic (405) SN:[id number] Ordering Provid er: JELANI SÁNCHEZ Report Released Date/Time: Dec 06, 2021 11:57 AM Reporting Lab: [facility] [address] [facility] [address] Performing Lab: [facility] [address] [facility] [address] UREA NITROGEN 13 7-25 SODIUM 138 135-145 POTASSIUM 3.8 3.5-5.0 CHLORIDE 103 100-110 CARBON DIOXIDE 23 20-30 ANION GAP 12 4-16 GLUCOSE 105 H 65-100 CREATININE 0.90 0.5-1.5 CALCIUM 8.7 8.5-10.5 eGFR(CKD-EPI 2020) >90.0 >60 Dec 06, 2021 [facility] COVID-19+FLU/RSV DIAGNOSTIC Spe cimen Type: NASOPHARYNX 12:00 PM [facility] PANEL(405) Comment: Tests performed on [employer] Genexpert (405) Critical results called to and read back by: ALESHIA WILKINSON RN 12/06/21 @ 1312 Ordering Provid er: JELANI SÁNCHEZ Report Released Date/Time: Dec 06, 2021 11:57 AM Reporting Lab: [facility] [address] [facility] [address] Performing Lab: [facility] [address] [place] [facility] [place] [address] FLU A(PCR) NEGATIVE NEGATIVE FLU B(PCR) NEGATIVE NEGATIVE RSV(PCR) NEGATIVE NEGATIVE COVID-19(DEC-sdk-[id number]) DETECTED HH NO T DETECTED Dec 06, 2021 12:00 PM [facility] BNP(P) Sp ecimen Type: PLASMA Comment: Tests performed on Pham [employer] Alarm Mechanic (405) SN:[id number] Ordering Provid er: JELANI SÁNCHEZ Report Released Date/Time: Dec 06, 2021 11:57 AM Reporting Lab: [facility] [address] [facility] [address] Performing Lab: [place] [facility] [address] [facility] [address] BNP(P) 224.8 H 10-100 Dec 06, 2021 12:00 PM [facility] [place] [facility] CBC PROFILE Sp ecimen Type: BLOOD No comment enter ed. Ordering Provid er: JELANI SÁNCHEZ Report Released Date/Time: Dec 06, 2021 11:57 AM Reporting Lab: [facility] [place] [facility] [address] [facility] [address] Performing Lab: [facility] [address] [facility] [address] WBC 7.2 4.5-11.0 RBC 4.86 4.23-5.66 HGB [...] 11, 0 [place] 2021 08:49 [place] [facility] Social [...] W/WO CONTRAST: MARYELLEN LONG LUCAS LARES N [id number] -1950 [facility] Exm Date: DEC 13, 2021@12:57 Req Phys: ISATU TODD Loc: OP Unknown/0 12-15-2021@13:20 Img Loc: MRI IMAGING (OOS) Service: ZGENERAL MEDICINE (Case [id number] COMPLETE) MRI ABDOMEN W/WO CONTRAST (M RI Detailed) CPT:90774 Reason for Study: further characterization of a [...] new lyphadenopathy REQUESTING MD: Isatu Todd PAGER: [phone] PHONE: [phone] Weight: 232.2 lb [105.32 kg] (12/12/2021 05:00) [...] patient will need to arrange for a emt driver to take him/her home after the [...] 15, 2021 Date Verified: DEC 15, 2021 Fleet Driver E-Sig:/ES/MARYELLEN LONG Report: MRI ABDOMEN W/WO [...] MALIGNANCY Primary Interpreting Staff: Staff AMELIA THOMAS (Fleet Driver) / Dec 10, 2021 09:[address] ABDOMEN & PELVIS: [facility] LUCAS MEEK N [id number] -1950 M [facility] Exm Date: DEC 10, 2021@09:30 Req Phys: ISATU TODD Loc: 1S MED/12-10@10:57 Img Loc: CT SCAN (OOS) Service: [facility] MEDICINE (Case [id number] COMPLETE) CT ABD & PELVIS WITHOUT CONT RAST (CT Detailed) CPT:64936 Reason for Study: 71 yo male with [...] INDEX - NO HEIGHTS FOUND Pager number: [phone] STAT orders MUST be call ed to RADIOLOGY [phone] to speak to the appropriate nuclear technician. Report Status: Verified Date Reported: DEC 10, 2021 Date Verified: DEC 10, 2021 Fleet Driver E-Sig: Report: EXAM: CT abdomen and [...] ph nodes. READING PHYSICIAN: Ramone Munoz D.O. -[phone] 12/10/2021 10:55 EDT [facility] National Teleradiology Program [phone] (For Medical Practitioner Use Only ) [address], [facility] [address], [address] [place] [address] Attention Patients / Veterans: If you have ques tions or concerns about these test results, please contact your o rdering provider or primary care team. Primary Diagnostic Code: SIGNIFICANT ABNORMALIT Y, ATTN NEEDED Primary Interpreting Staff: RADIOLOGY,OUTSIDE SERVICE, Staff Physician / Dec 09, 2021 07:34 AM BASW (MODIFIED): JESSIE CHENEY TARA ER JCT LUCAS MEEK [id number] -1950 M [facility] Exm Date: DEC 09, 2021@07:34 Req Phys: ISATU TODD Yao Manjarrez Loc: 1S MED/12-09@11:26 Img Loc: XRAY (OOS) Service: [facility] MEDICINE (Case [id number] COMPLETE) BASW (MODIFIED) (RAD Detaile d) CPT:03324 Contrast Media : Barium Reason for Study: dysphagia ?esophageal spasm Clinical History: Report Status: Verified Date Reported: DEC 09, 2021 Date Verified: DEC 09, 2021 Fleet Driver E-Sig:/ES/JESSIE CHENEY Report: BASW (MODIFIED) , [...] REQUIRED Primary Interpreting Staff: JESSIE CHENEY, RADIOLOGIST (Fleet Driver) /TLC Dec 06, 2021 12:[address] CHEST (INCLUDES ADRENALS): [facility]ESSIE [facility]ENEY [facility] [id number] -1950 [facility] Exm Date: DEC 06, 2021@12:59 Req Phys: GONZALOJELANI Loc: [facility] ED DAYS M 1RD (Req'g Loc) Img Loc: CT SCAN (OOS) Service: Unknown (Case [id number] COMPLETE) CT THORAX W/O CONT (CT Detai led) CPT:29411 Reason for Study: Opacification right chest Clinical History: No contrast allergy BUN: 13 (12/06/21 12:00) CREATI: 0.90 (12/06/21 12:00) eGFR 05/16/21 09:43 52 L Weight: 232.6 lb [105.51 kg] (12/06/2021 11:40) BODY MASS INDEX - NO HEIGHTS FOUND Pager number: [phone] STAT orders MUST be called t o RADIOLOGY [phone] to speak to the appropriate nuclear technician. Indications - Other: Opacification right chest, covid positive, lung cancer histo Report Status: Verified Date Reported: DEC 06, 2021 Date Verified: DEC 06, 2021 Fleet Driver E-Sig:/ES/JESSIE CHENEY Report: CT THORAX W/O [...] REQUIRED Primary Interpreting Staff: JESSIE CHENEY, RADIOLOGIST (Fleet Driver) Primary Interpreting Resident: PRINCE CHAMPION, Resident /BR Dec 06, 2021 11:58 AM CHEST SINGLE VIEW: JESSIE CHENEYT LUCAS MEEK N [id number] -1950 M [facility] Exm Date: DEC 06, 2021@11:58 Req Phys: JELANI SÁNCHEZ Pat Loc: [facility] ED DAYS M 1RD (Req'g Loc) Img Loc: XRAY (OOS) Service: Unknown (Case [id number] COMPLETE) CHEST SINGLE VIEW (RAD Detai led) CPT:74225 Proc Modifiers : PORTABLE EXAM Reason for Study: SOB, home covid test positive Clinical History: Report Status: Verified Date Reported: DEC 06, 2021 Date Verified: DEC 06, 2021 Fleet Driver E-Sig:/ES/JESSIE CHENEY Report: Exam type: Chest [...] REQUIRED Primary Interpreting Staff: JESSIE CHENEY, RADIOLOGIST (Fleet Driver) /TLC Pathology Reports: +/- 30 days [...] Lab: [facility] [CLIA# [id number]] [address] [place] [address] - - - - - - [...] automatically d ocumented from SURGERY package case #[id number] Field (#32) PRINCIPAL PRE-OP DIAGNOSIS, (#.72) OTHER [...] automatically d ocumented from SURGERY package case #[id number] Field (#34) PRINCIPAL POST-OP DIAG, (#.74) OTHER [...] Label: Lucas Meek Paperwork: Lucas Meek Cassette: [id number];..;KALYANI;.;405;[id number] Specimen is labeled: ES bx Received in formalin are several pieces of pale boyd and brown tissue, 1.2 x 0.7 cm in aggregate. Submitted entirely in 1 cassette [id number];..;KALYANI;.;405;[id number] SAW 12/15/2021 Microscopic exam: *+* MODIFIED REPORT *+* (Last modified: JAN 03, 2022@09:30:20 typed by NIURKA WADDELL) DIAGNOSIS: A. 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 Kendell long. TIARA Coombs was notified on 12/21/21. Modified on 01/03/22 to include report from [facility] stating that tumor is NEGATIVE for her2/ matheus amplification. The attending pathologist who signature mansoor ears on this report has reviewed all diagnostic slides and has edited t he gross and/or microscopic portion of this report in rendering the final pathologic diagnosis. [address] [address] CPT: 38119 /emely/ NIURKA Yeung MD Signed Jan 03, 2022@10:28 Performing Laboratory: Surgical Pathology Report Performed By: [facility] [CLIA# [id number]] [address] [place] [address] $FTR - - - - - [...] - - LUCAS MEEK STANDARD FORM 515 ID:[id number] SEX:M :1950 AGE: 71 LOC: SDM END [...] Reporting Lab: [facility] [CLIA# [id number]] [address] [place] [address] - - - - - - [...] automatically d ocumented from SURGERY package case #[id number] Field (#32) PRINCIPAL PRE-OP DIAGNOSIS, (#.72) OTHER [...] automatically d ocumented from SURGERY package case #[id number] Field (#34) PRINCIPAL POST-OP DIAG, (#.74) OTHER [...] Label: Lucas Meek Paperwork: Lucas Meek Cassette: [id number];..;KALYANI;.;405;[id number] Specimen is labeled: ES bx Received in formalin are several pieces of pale boyd and brown tissue, 1.2 x 0.7 cm in aggregate. Submitted entirely in 1 cassette [id number];..;KALYANI;.;405;[id number] SAW 12/15/2021 Microscopic exam: DIAGNOSIS: A. 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 Kendell long. TIARA Coombs was notified on 12/21/21. The attending pathologist who signature mansoor ears on this report has reviewed all diagnostic slides and has edited t he gross and/or microscopic portion of this report in rendering the final pathologic diagnosis. [address] [address] CPT: 62451 /emely/ NIURKA Yeung MD Signed Dec 21, 2021@11:46 Performing Laboratory: Surgical Pathology Report Performed By: [facility] [CLIA# [id number]] [address] [place] [address] $FTR - - - - - [...] - - LUCAS MEEK STANDARD FORM 515 ID:[id number] SEX:M :1950 AGE: 71 LOC: [facility] END PCP: Isatu Todd /charmaine Yeung MD Signed: 12/21/2021 11:46 Dec 06, 2021 03:30 PM LR MICROBIOLOGY REPORT: [facility] Reporting Lab: [facility] [CLIA# [id number]] [address] [place] [address] Accession [UID]: [id number] [[id number]] Receiv ed: Dec 06, 2021@16:14 Collection sample: BLOOD CUL T BOTTLE(NIRMAL/AERO)Collection date: Dec 06, 2021 15:30 Site/Specimen: BLOOD Provider: JELANI SÁNCHEZ Comment on specimen: LAC Test(s) ordered: BLOOD CULTURE ANAEROBI C....... completed: Dec 12, 2021 06:18 * BACTERIOLOGY FINAL REPORT => Dec 12, 2021 06:1 8 TECH CODE: [id number] Bacteriology Remark(s): NO GROWTH IN 5 DAYS =--=--=--=--=--=--=--=--=--=--=--=--=--= --=--=--=--=--=--=--=--=--=--=--=--=-- Performing Laboratory: Bacteriology Report Performed By: [facility] [CLIA# [id number]] [address] [place] [address] Dec 06, 2021 03:30 PM LR MICROBIOLOGY REPORT: [facility] Reporting Lab: [facility] [CLIA# [id number]] [address] [place] [address] Accession [UID]: [id number] [[id number]] Receiv ed: Dec 06, 2021@16:14 Collection sample: BLOOD CUL T BOTTLE(NIRMAL/AERO)Collection date: Dec 06, 2021 15:30 Site/Specimen: BLOOD Provider: JELANI SÁNCHEZ Comment on specimen: LAC Test(s) ordered: BLOOD CULTURE AEROBIC. ........ completed: Dec 12, 2021 06:17 * BACTERIOLOGY FINAL REPORT => Dec 12, 2021 06:1 7 TECH CODE: [id number] Bacteriology Remark(s): NO GROWTH IN 5 DAYS =--=--=--=--=--=--=--=--=--=--=--=--=--= --=--=--=--=--=--=--=--=--=--=--=--=-- Performing Laboratory: Bacteriology Report Performed By: [facility] [CLIA# [id number]] [address] [place] [address]
--- OUTSIDE RECORDS SUMMARY | 2022-01-19 09:13 | XMS_ITS ---
DAILY HOSPITALIZATION DATA [facility] Encounter Summary Created on:December 11, 2021 Patient:LUCAS MEEK Sex:Male :1950 Author Organization [facility] Address [address] [place] [id number] Support Name Relationship Address Phone YUSRA MEEK Unavailable [address] [address] YUSRA MEEK Unavailable [address] [place] [facility] [place] [address] CLAY MOSLEY Unavailable Unavailable SJ SANTACRUZ Unavailable [...] MEDICARE MEDICARE PART Jun 18, PART A [id number] DO KALYANI PATIENT (WNR) (M) A 2016 13A 1 U[place]AS MEDICARE MEDICARE PART Jun 18, PART B [id number] DO KALYANI PATIENT (WNR) (M) B 2016 13A 1 [place] MEDICARE MEDICARE PART Jun 18, PART A [id number] KALYANIDO PATIENT (WNR) (M) A 2017 VH81 2 [place] MEDICARE MEDICARE PART Jun 18, PART B [id number] DO KALYANI PATIENT (WNR) (M) B 2017 VH81 2 [place] UNITED MEDICARE MCR(Jun 18 [id number] Luz MEEK PATIENT HEALTHCARE ADVANTAGE NR) 2021 37 0 [facility] (WNR) Selected Encounter This section includes the information on record at [place] for the Encounter. Date/Time Encounter Type Encounter Description Reason Provider Source Dec 11, 2021 01:57 Inpatient Visit DAILY HOSPITALIZATION DATA PM IHE Encounter Template Text not used by [place] [...] [place] [facility] Jan 10, 2022 11:30 AM [facility] Jan 24, 2022 08:00 AM [place] [facility] Feb 21, 2022 10:00 AM [place] [facility] Mar 21, [...] The data comes from all [place] treatment [facility]. Test Date/Time Test Type Test Details Facility Name October 31, 2021 07:37 AM Consult Order [facility] Cons [employer] November 15, 2021 10:37 AM Consult Order [facility] CARE-PODIATRY Cons [employer] Dec 06, 2021 12:52 PM [place]acy [place] Infusion Order [facility] Dec 06, 2021 03:24 PM Pharmacy [place] [facility] Dec 06, 2021 03:40 PM Pharmacy - [place] Order [facility] Dec 15, 2021 08:41 AM Consult Order SPEECH PATHOLOGY [place] OUT[place] Cons [facility] [employer] Jan 15, 2022 10:08 PM Consult Order [facility] CARE-PALLIATIVE CARE Cons [employer] Lab Results: +/- 30 days of [...] Reference Range Comment Dec 15, 2021 [place] P4 GLU,BUN,CREAT,LYTES,CA Speci men Type: PLASMA 06:43 AM [facility] Comment: Tests performed on Alloka (405) SN:[id number] Ordering Provid er: ISATU TODD Report Released Date/Time: Dec 11, 2021 07:42 AM Reporting Lab: [facility] [address] [facility] [address] Performing Lab: [facility] [address] [facility] [address] UREA NITROGEN 9 7-25 SODIUM 137 135-145 POTASSIUM 3.8 3.5-5.0 CHLORIDE 105 100-110 CARBON DIOXIDE 26 20-30 ANION GAP 6 4-16 GLUCOSE 102 H 65-100 CREATININE 0.64 0.5-1.5 CALCIUM 8.1 L 8.5-10.5 eGFR(CKD-EPI 2020) >90.0 >60 Dec 15, 2021 06:43 AM [facility] CBC PROFILE Sp ecimen Type: BLOOD No comment enter ed. Ordering Provid er: ISATU TODD Report Released Date/Time: Dec 10, 2021 07:22 AM Reporting Lab: [facility] [address] [facility] [address] Performing Lab: [facility] [address] [facility] [address] WBC 5.7 4.5-11.0 RBC 4.22 L 4.23-5.66 [...] ABSOLUTE NRBC 0.00 0-0 Dec 14, 2021 [facility] CYTOGENETIC Specimen Type: ESOPHAGUS 02:59 PM VAOC FISH([facility]) Comment: ~For T est: CYTOGENETIC FISH([facility]) ~FISH HER 2 NUE, FFPE See full report in Right Relevance Image display viewer/tab#LAB-Reference Ordering Provid er: NIURKA MILLER Report Released Date/Time: Dec 21, 2021 12:11 PM Reporting Lab: [facility] [address] [facility] [address] Performing Lab: [facility] CYTOGENETIC FISH([facility]) comment Dec 14, 2021 [facility] P4 GLU,BUN,CREAT,LYTES,CA Speci men Type: PLASMA 06:27 AM [facility] Comment: Tests performed on Alloka (405) SN:[id number] Ordering Provid er: ISATU TODD Report Released Date/Time: Dec 11, 2021 07:42 AM Reporting Lab: [facility] [address] [facility] [address] Performing Lab: [facility] [address] [facility] [address] UREA NITROGEN 10 7-25 SODIUM 137 135-145 POTASSIUM 4.0 3.5-5.0 CHLORIDE 104 100-110 CARBON DIOXIDE 25 20-30 ANION GAP 8 4-16 GLUCOSE 99 65-100 CREATININE 0.67 0.5-1.5 CALCIUM 8.2 L 8.5-10.5 eGFR(CKD-EPI 2020) >90.0 >60 Dec 14, 2021 06:27 [facility] Sp ecimen Type: BLOOD No comment enter ed. Ordering Provid er: ISATU TODD Report Released Date/Time: Dec 10, 2021 07:22 AM Reporting Lab: [facility] [address] [facility] [address] Performing Lab: [facility] [address] [facility] [address] WBC 6.0 4.5-11.0 RBC 4.29 4.23-5.66 HGB [...] 0.00 0-0 Dec 13, 2021 06:34 AM [facility] CBC PROFILE Sp ecimen Type: BLOOD No comment enter ed. Ordering Provid er: ISATU TODD Report Released Date/Time: Dec 10, 2021 07:22 AM Reporting Lab: [facility] [address] [facility] [address] Performing Lab: [facility] [address] [facility] [address] WBC 5.6 4.5-11.0 RBC 4.28 4.23-5.66 HGB [...] ABSOLUTE NRBC 0.00 0-0 Dec 13, 2021 [facility] P4 GLU,BUN,CREAT,LYTES,CA Speci men Type: PLASMA 06:34 AM [facility] Comment: Tests performed on Alloka (405) SN:[id number] Ordering Provid er: ISATU TODD Report Released Date/Time: Dec 11, 2021 07:42 AM Reporting Lab: [facility] [address] [facility] [address] Performing Lab: [facility] [address] [facility] [address] UREA NITROGEN 12 7-25 SODIUM 136 135-145 POTASSIUM 3.9 3.5-5.0 CHLORIDE 105 100-110 CARBON DIOXIDE 24 20-30 ANION GAP 7 4-16 GLUCOSE 102 H 65-100 CREATININE 0.66 0.5-1.5 CALCIUM 8.3 L 8.5-10.5 eGFR(CKD-EPI 2020) >90.0 >60 Dec 12, 2021 06:21 AM [facility] CBC PROFILE Sp ecimen Type: BLOOD No comment enter ed. Ordering Provid er: ISATU TODD Report Released Date/Time: Dec 10, 2021 07:22 AM Reporting Lab: [facility] [address] [facility] [address] Performing Lab: [facility] [address] [facility] [address] WBC 5.5 4.5-11.0 RBC 4.37 4.23-5.66 HGB [...] NRBC 0.00 0-0 Dec 12, 2021 [place] P4 GLU,BUN,CREAT,LYTES,CA Speci men Type: PLASMA 06:21 AM [facility] Comment: Tests performed on Alloka (292) SN:[id number] Ordering Provid er: ISATU TODD Report Released Date/Time: Dec 11, 2021 07:42 AM Reporting Lab: [facility] [address] [facility] [address] Performing Lab: [facility] [address] [facility] [address] UREA NITROGEN 11 7-25 SODIUM 139 135-145 POTASSIUM 4.1 3.5-5.0 CHLORIDE 107 100-110 CARBON DIOXIDE 24 20-30 ANION GAP 8 4-16 GLUCOSE 110 H 65-100 CREATININE 0.70 0.5-1.5 CALCIUM 8.3 L 8.5-10.5 eGFR(CKD-EPI 2020) >90.0 >60 Dec 12, 2021 06:00 AM [place] [facility] MAGNESIUM Sp ecimen Type: PLASMA Comment: Testin g Performed on Alloka (405) SN:[id number] Ordering Provid er: ISATU TODD Report Released Date/Time: Dec 12, 2021 08:24 AM Reporting Lab: [place] [facility] [address] [facility] [address] Performing Lab: [place] [facility] [address] [facility] [address] MAGNESIUM 1.8 1.6-2.6 Dec 12, 2021 06:00 AM [place] [facility] PHOSPHORUS Sp ecimen Type: PLASMA Comment: Testin g Performed on Alloka (405) SN:[id number] Ordering Provid er: ISATU TODD Report Released Date/Time: Dec 12, 2021 08:24 AM Reporting Lab: [place] [facility] [address] [facility] [address] Performing Lab: [place] [facility] [address] [facility] [address] PHOSPHORUS 3.1 2.5-5.0 Dec 11, 2021 06:15 AM [place] [facility] ELECTROLYTES Sp ecimen Type: PLASMA Comment: Tests performed on Alloka (405) SN:[id number] Ordering Provid er: ISATU TODD Report Released Date/Time: Dec 10, 2021 07:22 AM Reporting Lab: [place] [facility] [address] [facility] [address] Performing Lab: [place] [facility] [address] [facility] [address] SODIUM 137 135-145 POTASSIUM 4.3 3.5-5.0 CHLORIDE 108 100-110 CARBON DIOXIDE 20 20-30 ANION GAP 9 4-16 Dec 11, 2021 06:15 AM [place] [facility] CBC PROFILE Sp ecimen Type: BLOOD Comment: Result s checked Ordering Provid er: ISATU TODD Report Released Date/Time: Dec 10, 2021 07:22 AM Reporting Lab: [place] [facility] [address] [facility] [address] Performing Lab: [place] [facility] [address] [facility] [address] WBC 5.8 4.5-11.0 RBC 4.37 4.23-5.66 HGB [...] 0.00 0-0 Dec 11, 2021 06:00 AM [facility] PHOSPHORUS Sp ecimen Type: PLASMA Comment: Tests performed on Alloka (912) SN:[id number] Results checked Ordering Provid er: ISATU TODD Report Released Date/Time: Dec 11, 2021 07:44 AM Reporting Lab: [facility] [place] [facility] [address] [facility] [address] Performing Lab: [place] OMEGAT MN[facility] [address] [facility] [address] PHOSPHORUS 3.0 2.5-5.0 Dec 10, 2021 08:05 AM [place] UREA NITROGEN Specimen Type: PLASMA [facility] Comment: [place] [id number] on Dec 10, 2021@08:31 Tests performed on Alloka (405) SN:[id number] Ordering Provid er: ISATU TODD Report Released Date/Time: Dec 10, 2021 07:22 AM Reporting Lab: [place] [facility] [address] [place] [facility] [place] [address] Performing Lab: [place] [facility] [address] [place] [facility] [place] [address] UREA NITROGEN 8 7-25 Dec 10, 2021 08:05 AM [place] [facility] PHOSPHORUS Sp ecimen Type: PLASMA Comment: [place] [id number] on Dec 10, 2021@08:31 Tests performed on Alloka (405) SN:[id number] Ordering Provid er: ISATU TODD Report Released Date/Time: Dec 10, 2021 07:22 AM Reporting Lab: [place] [facility] [address] [place] [facility] [place] [address] Performing Lab: [place] [facility] [address] [place] [facility] [place] [address] PHOSPHORUS 1.8 L 2.5-5.0 Dec 10, 2021 08:05 AM [place] [facility] MAGNESIUM Sp ecimen Type: PLASMA Comment: [place] [id number] on Dec 10, 2021@08:31 Tests performed on Alloka (405) SN:[id number] Ordering Provid er: ISATU TODD Report Released Date/Time: Dec 10, 2021 07:22 AM Reporting Lab: [place] [facility] [address] [place] [facility] [place] [place] [address] Performing Lab: [place] [facility] [address] [place] [facility] [place] [address] MAGNESIUM 1.7 1.6-2.6 Dec 10, 2021 08:05 AM [place] [facility] GLUCOSE Sp ecimen Type: PLASMA Comment: [place] [id number] on Dec 10, 2021@08:31 Tests performed on Alloka (405) SN:[id number] Ordering Provid er: ISATU TODD Report Released Date/Time: Dec 10, 2021 07:22 AM Reporting Lab: [place] [facility] [address] [facility] [address] Performing Lab: [place] [facility] [address] [facility] [address] GLUCOSE 144 H 65-100 Dec 10, 2021 08:05 AM [place] [facility] CALCIUM Sp ecimen Type: PLASMA Comment: [place] [id number] on Dec 10, 2021@08:31 Tests performed on Alloka (405) SN:[id number] Ordering Provid er: ISATU TODD Report Released Date/Time: Dec 10, 2021 07:22 AM Reporting Lab: [place] [facility] [address] [facility] [address] Performing Lab: [place] [facility] [address] [facility] [address] CALCIUM 8.3 L 8.5-10.5 Dec 10, 2021 08:05 AM [place] [facility] ELECTROLYTES Sp ecimen Type: PLASMA Comment: [place] [id number] on Dec 10, 2021@08:31 Tests performed on [employer] [employer] (405) SN:[id number] Ordering Provid er: ISATU TODD Report Released Date/Time: Dec 10, 2021 07:22 AM Reporting Lab: [place] [facility] [address] [facility] [address] Performing Lab: [place] [facility] [address] [facility] [address] SODIUM 139 135-145 POTASSIUM 3.7 3.5-5.0 CHLORIDE 107 100-110 CARBON DIOXIDE 24 20-30 ANION GAP 8 4-16 Dec 10, 2021 08:05 [place] CREATININE WITH eGFR Specime n Type: PLASMA AM [facility] PANEL Comment: [place] [id number] on Dec 10, 2021@08:31 Tests performed on Alloka (405) SN:[id number] Ordering Provid er: ISATU TODD Report Released Date/Time: Dec 10, 2021 07:22 AM Reporting Lab: [place] [facility] [address] [facility] [address] Performing Lab: [place] [facility] [address] [facility] [address] CREATININE 0.78 0.5-1.5 eGFR(CKD-EPI 2020) >90.0 >60 Dec 10, 2021 08:05 AM [facility] CBC PROFILE Sp ecimen Type: BLOOD No comment enter ed. Ordering Provid er: ISATU TODD Report Released Date/Time: Dec 10, 2021 07:22 AM Reporting Lab: [place] [place] [facility] [address] [facility] [address] Performing Lab: [place] [facility] [address] [facility] [address] WBC 7.0 4.5-11.0 RBC 4.54 4.23-5.66 HGB [...] 0.00 0-0 Dec 09, 2021 06:46 AM [facility] MAGNESIUM Sp ecimen Type: PLASMA Comment: Tests performed on Alloka (001) SN:[id number] Ordering Provid er: ISATU TODD Report Released Date/Time: Dec 08, 2021 10:23 AM Reporting Lab: [facility] [address] [facility] [address] Performing Lab: [facility] [address] [facility] [address] MAGNESIUM 1.6 1.6-2.6 Dec 09, 2021 [facility] P4 GLU,BUN,CREAT,LYTES,CA Speci men Type: PLASMA 06:46 AM [facility] Comment: Tests performed on Alloka (405) SN:[id number] Ordering Provid er: ISATU TODD Report Released Date/Time: Dec 08, 2021 05:00 PM Reporting Lab: [facility] [address] [facility] [address] Performing Lab: [facility] [address] [facility] [address] UREA NITROGEN 6 L 7-25 SODIUM 134 [...] Lab: [facility] [address] [facility] [address] Performing Lab: [facility] [address] [facility] [address] WBC 7.1 4.5-11.0 RBC 4.40 4.23-5.66 HGB [...] 0-0 Dec 08, 2021 06:39 AM [facility] MAGNESIUM Sp ecimen Type: PLASMA Comment: Testin g Performed on Alloka (405) SN:[id number] Ordering Provid er: ISATU TODD Report Released Date/Time: Dec 07, 2021 10:32 AM Reporting Lab: [facility] [address] [facility] [address] Performing Lab: [facility] [address] [facility] [address] MAGNESIUM 1.5 L 1.6-2.6 Dec 08, 2021 06:39 AM [facility] CBC PROFILE Sp ecimen Type: BLOOD No comment enter ed. Ordering Provid er: ISATU TODD Report Released Date/Time: Dec 07, 2021 10:32 AM Reporting Lab: [facility] [address] [facility] [address] Performing Lab: [facility] [address] [facility] [address] WBC 8.4 4.5-11.0 RBC 4.75 4.23-5.66 HGB [...] ABSOLUTE NRBC 0.00 0-0 Dec 08, 2021 [facility] P4 GLU,BUN,CREAT,LYTES,CA Speci men Type: PLASMA 06:39 AM [facility] Comment: Testin g Performed on [facility] (405) SN:[id number] Ordering Provid er: ISATU TODD Report Released Date/Time: Dec 07, 2021 10:32 AM Reporting Lab: [facility] [address] [facility] [address] Performing Lab: [facility] [address] [facility] [address] UREA NITROGEN 6 L 7-25 SODIUM 136 135-145 POTASSIUM 3.3 L 3.5-5.0 CHLORIDE 104 100-110 CARBON DIOXIDE 22 20-30 ANION GAP 10 4-16 GLUCOSE 133 H 65-100 CREATININE 0.76 0.5-1.5 CALCIUM 8.4 L 8.5-10.5 eGFR(CKD-EPI 2020) >90.0 >60 Dec 07, 2021 [facility] P4 GLU,BUN,CREAT,LYTES,CA Speci men Type: PLASMA 06:42 AM [facility] Comment: Tests performed on [facility] (405) SN:[id number] Ordering Provid er: PORFIRIO WALTERS Report Released Date/Time: Dec 06, 2021 06:57 PM Reporting Lab: [place] [facility] [address] [facility] [address] Performing Lab: [facility] [address] [facility] [address] UREA NITROGEN 9 7-25 SODIUM 135 135-145 POTASSIUM 3.5 3.5-5.0 CHLORIDE 103 100-110 CARBON DIOXIDE 22 20-30 ANION GAP 10 4-16 GLUCOSE 92 65-100 CREATININE 0.73 0.5-1.5 CALCIUM 8.0 L 8.5-10.5 eGFR(CKD-EPI 2020) >90.0 >60 Dec 07, 2021 06:42 [place] LIVER PROFILE Specimen Typ e: PLASMA AM [facility] Comment: Tests performed on [employer] Tobacco Prevention Health Educator (405) SN:[id number] Ordering Provid er: PORFIRIO WALTERS Report Released Date/Time: Dec 06, 2021 06:57 PM Reporting Lab: [facility] [address] [facility] [address] Performing Lab: [facility] [address] [facility] [address] PROTEIN, TOTAL 5.7 L 6.0-8.5 ALBUMIN 2.4 L 3.2-5.0 BILIRUBIN, TOTAL 0.4 0.2-1.2 ALKALINE PHOSPHATASE 109 40-150 ALT(SGPT) 10 7-52 AST(SGOT) 15 5-34 FIB-4 SCORE 1.92 <2.67 Dec 07, 2021 06:42 AM [facility] [facility] CBC PROFILE Specimen Type: BLOOD [facility] No comment enter ed. Ordering Provid er: PORFIRIO WALTERS Report Released Date/Time: Dec 06, 2021 06:57 PM Reporting Lab: [facility] [address] [facility] [address] Performing Lab: [facility]OC [address] [facility] [address] WBC 5.7 4.5-11.0 RBC 4.15 L 4.23-5.66 [...] [facility]AM[facility] %) AUTOMATED Comment: Tests performed on Alloka (405) SN:[id number] Ordering Provid er: ISATU TODD Report Released Date/Time: Dec 07, 2021 10:28 AM Reporting Lab: [place] [facility] [address] [facility] [address] Performing Lab: [place] [facility] [address] [facility] [address] RETICULOCYTES (%) AUTOMATED 1.23 0. 6-2.0 RETICULOCYTES (ABS) AUTOMATED 0.052 0.030-0.090 Dec 06, 2021 09:45 [place] MRSA SURVL NARES Specimen Ty pe: NARES PM [facility] DNA No comment enter ed. Ordering Provid er: ALVARO VARGHESE Report Released Date/Time: Dec 07, 2021 02:20 AM Reporting Lab: [place] [facility] [address] [facility] [address] Performing Lab: [place] [facility] [address] [facility] [address] MRSA SURVL NARES DNA NEGATIVE NEGATIVE Dec 06, 2021 06:00 [place] URINALYSIS W/REFLEX TO Speci men Type: URINE PM [facility] CULTURE No comment enter ed. Ordering Provid er: JELANI SÁNCHEZ Report Released Date/Time: Dec 06, 2021 11:57 AM Reporting Lab: [place] [facility] [address] [facility] [address] Performing Lab: [place] [facility] [address] [facility] [address] URINE COLOR Arlin YELLOW SPECIFIC GRAVITY 1.029 [...] 21, RIVER VARIANT Comment: https://www.cdc.gov/coronavirus/2019-ncov/cases-updates/variant- surveillance/variant-info.html The [employer] SARS CoV 2 [employer] Research Assay-GX is a next-generation sequencing (NGS) assa 2021 [facility] SEQUENCING y that determine s the complete genome sequence of the SARS-CoV-2 virus. The assay contains variant-tolerant primers to broaden and improve the coverage for variant detection and increase the sensitivity 12:00 [facility] PNL(WH) of the panel to enable detection from lower viral titer samples. The assay is run on the [employer] SOCIAL Sequencer, which performs automated library preparation, sequencing, analysis, and reporting. PM The sequence an alysis includes determination of viral phylogenetic lineage by comparison to the reference strain Wuhan-Hu-1, GenBank: [id number]. Sequence determination may not be possible owing [...] and its performance characteristics determined by the [facility] Molecular Diagnostics Laboratory, which is certified under the Clinical Laboratory Improveme nt Amendments (C MARCO) as qualified to perform high complexity clinical laboratory testing. This test is validated for clinical use at [facility] and should not be regarded as investigational or for research. The FDA does not require this test to go through premarket FDA review, and therefore it has not been cleared or approved by the FDA. This report was reviewed and approved by the on-service pathologist. Ordering Provid er: JELANI SÁNCHEZ Report Released Date/Time: Dec 06, 2021 01:13 PM Reporting Lab: [facility] [address] [facility] [address] Performing Lab: [facility] [address] [facility] [address] SARS-CoV-2 CLADE() 22C (OMICRON) SARS-CoV-2 LINEAGE() BA.2.12.1 Dec 06, 2021 12:00 [facility] COVID-19 AG SCREEN Specimen Type: NASAL CAVITY PM [facility] PANEL BINAX(405) Comment: Testi ng Performed By: Mike Briscoe Ordering Provid er: JELANI SÁNCHEZ Report Released Date/Time: Dec 08, 2021 08:23 AM Reporting Lab: [facility] [address] [facility] [address] Performing Lab: [facility] [address] [facility] [address] COVID-19 AG SCRN(wrj BINAX) POSITIVE HH NE G Dec 06, 2021 12:00 PM [facility] LIVER PROFILE Sp ecimen Type: PLASMA Comment: Testin g Performed on [employer] Tobacco Prevention Health Educator (405) [id number] Ordering Provid er: JELANI SÁNCHEZ Report Released Date/Time: Dec 06, 2021 11:57 AM Reporting Lab: [facility] [address] [facility] [address] Performing Lab: [facility] [address] [facility] [address] PROTEIN, TOTAL 6.6 6.0-8.5 ALBUMIN 2.8 L 3.2-5.0 BILIRUBIN, TOTAL 0.6 0.2-1.2 ALKALINE PHOSPHATASE 134 40-150 ALT(SGPT) 13 7-52 AST(SGOT) 18 5-34 FIB-4 SCORE 1.94 <2.67 Dec 06, 2021 [facility] GLU,BUN,CREAT,LYTES,CA Speci men Type: PLASMA 12:00 PM [facility] Comment: Testin g Performed on [employer] Tobacco Prevention Health Educator (405) [id number] Ordering Provid er: JELANI SÁNCHEZ Report Released Date/Time: Dec 06, 2021 11:57 AM Reporting Lab: [facility] [address] [facility] [address] Performing Lab: [facility] [address] [facility] [address] UREA NITROGEN 13 7-25 SODIUM 138 135-145 POTASSIUM 3.8 3.5-5.0 CHLORIDE 103 100-110 CARBON DIOXIDE 23 20-30 ANION GAP 12 4-16 GLUCOSE 105 H 65-100 CREATININE 0.90 0.5-1.5 CALCIUM 8.7 8.5-10.5 eGFR(CKD-EPI 2020) >90.0 >60 Dec 06, 2021 12:00 PM [facility] BNP(P) Sp ecimen Type: PLASMA Comment: Tests performed on [employer] (405) SN:[id number] Ordering Provid er: JELANI SÁNCHEZ Report Released Date/Time: Dec 06, 2021 11:57 AM Reporting Lab: [facility] [address] [facility] [address] Performing Lab: [facility] [address] [facility] [address] BNP(P) 224.8 H 10-100 Dec 06, 2021 [facility] COVID-19+FLU/RSV DIAGNOSTIC Spe cimen Type: NASOPHARYNX 12:00 PM [facility] PANEL(405) Comment: Tests performed on [employer] (405) Critical results called to and read back by: ALESHIA WILKINSON RN 12/06/21 @ 1312 Ordering Provid er: JELANI SÁNCHEZ Report Released Date/Time: Dec 06, 2021 11:57 AM Reporting Lab: [facility] [address] [facility] [address] Performing Lab: [facility] [address] [facility] [address] FLU A(PCR) NEGATIVE NEGATIVE FLU B(PCR) NEGATIVE NEGATIVE RSV(PCR) NEGATIVE NEGATIVE COVID-19(RHL-[id number]) DETECTED HH NO T DETECTED Dec 06, 2021 12:00 PM [facility] [facility] TROPONIN II Sp ecimen Type: PLASMA Comment: Tests performed on Pham Tobacco Prevention Health Educator (405) SN:[id number] Ordering Provid er: JELANI SÁNCHEZ Report Released Date/Time: Dec 06, 2021 11:57 AM Reporting Lab: [facility] [address] [facility] [facility] [address] Performing Lab: [facility] [address] [facility] [address] TROPONIN II 0.03 0.00-0.29 Dec 06, 2021 12:00 PM [facility] [place] [facility] CBC PROFILE Sp ecimen Type: BLOOD No comment enter ed. Ordering Provid er: JELANI SÁNCHEZ Report Released Date/Time: Dec 06, 2021 11:57 AM Reporting Lab: [facility] [address] [facility] [facility] [address] Performing Lab: [facility] [address] [facility] [facility] [address] WBC 7.2 4.5-11.0 RBC 4.86 4.23-5.66 HGB [...] 2021 07:56 /min mm[Hg] RIVER PM T [facility] Dec 11, 3 WHITE 2021 07:49 RIVER PM T [facility] Dec 11, 98.3 F 98 127/83 18 /min 97 % 0 WHITE 2021 02:50 /min mm[Hg] RIVER PM T [facility] Dec 11, 0 WHITE 2021 01:57 RIVER PM T [facility] Dec 11, 0 WHITE 2021 08:49 RIVER AM [facility] Social History: Smoking Status (Most [...] took place. Date/Time Smoking Status/Tobacco Use Comment [facility] Apr 01, 2020 01:16 PM [...] USE IN PAST YEAR [facility] DO[facility] May 01, 2016 11:19 AM QUIT TOBACCO USE IN PAST YEAR [facility] MONTOYA [facility] Mar 16, 2016 12:50 PM V1-PT DECLINES REF TO TOBACCO [facility] DOYLE [facility] CESS PRGM Mar 16, 2016 12:50 PM V1-PT THINKING ABOUT QUIT [facility] DO[facility] TOBACCO USE Aug 12, 2015 08:48 AM CURRENT SMOKER [facility] Yates [facility] Radiology Reports: +/- 30 days [...] W/WO CONTRAST: MARYELLEN LONG LUCAS LARES N [id number] -1950 [facility] Exm Date: DEC 13, 2021@12:57 Req Phys: ISATU TODD Loc: OP Unknown/0 12-15-2021@13:20 Img Loc: MRI IMAGING (OOS) Service: ZGENERAL MEDICINE (Case [id number] COMPLETE) MRI ABDOMEN W/WO CONTRAST (M RI Detailed) CPT:95770 Reason for Study: further characterization of a [...] new lyphadenopathy REQUESTING MD: Isatu Todd PAGER: [phone] PHONE: [phone] Weight: 232.2 lb [105.32 kg] (12/12/2021 05:00) [...] patient will need to arrange for a drivers license examiner to take him/her home after the MRI [...] 15, 2021 Date Verified: DEC 15, 2021 Injection Mold Tooling Technician E-Sig:/ES/MARYELLEN LONG Report: MRI ABDOMEN W/WO [...] MALIGNANCY Primary Interpreting Staff: Staff AMELIA THOMAS (Injection Mold Tooling Technician) / Dec 10, 2021 09:[address] ABDOMEN & PELVIS: [facility] LUCAS MEEK N [id number] -1950 M SERVICE [facility] Exm Date: DEC 10, 2021@09:30 Req Phys: ISATU TODD Loc: 1S MED/12-10@10:57 Img Loc: CT SCAN (OOS) Service: [facility] MEDICINE (Case [id number] COMPLETE) CT ABD & PELVIS WITHOUT CONT RAST (CT Detailed) CPT:64247 Reason for Study: 71 yo male with [...] INDEX - NO HEIGHTS FOUND Pager number: [phone] STAT orders MUST be call ed to RADIOLOGY [phone] to speak to the appropriate polysomnographic technician. Report Status: Verified Date Reported: DEC 10, 2021 Date Verified: DEC 10, 2021 Injection Mold Tooling Technician E-Sig: Report: EXAM: CT abdomen and [...] ph nodes. READING PHYSICIAN: Ramone Munoz D.O. [phone] 12/10/2021 10:55 EDT [facility] National Teleradiology Program [phone] (For Medical Practitioner Use Only ) [address] [facility] [facility] [address] [place] [address] Attention Patients / Veterans: If you have ques tions or concerns about these test results, please contact your o rdering provider or primary care team. Primary Diagnostic Code: SIGNIFICANT ABNORMALIT Y, ATTN NEEDED Primary Interpreting Staff: RADIOLOGY,OUTSIDE SERVICE, Staff Physician / Dec 09, 2021 07:34 AM BASW (MODIFIED): JESSIE CHENEY TARA ER JCT LUCAS MEEK [id number] -1950 M [facility] Exm Date: DEC 09, 2021@07:34 Req Phys: ISATU TODD Yao Manjarrez Loc: 1S MED/12-09@11:26 Img Loc: XRAY (OOS) Service: [facility] MEDICINE (Case [id number] COMPLETE) BASW (MODIFIED) (RAD Detaile d) CPT:66728 Contrast Media : Barium Reason for Study: dysphagia ?esophageal spasm Clinical History: Report Status: Verified Date Reported: DEC 09, 2021 Date Verified: DEC 09, 2021 Injection Mold Tooling Technician E-Sig:/ES/JESSIE CHENEY Report: BASW (MODIFIED) , 12/09/2021 [...] REQUIRED Primary Interpreting Staff: JESSIE CHENEY, RADIOLOGIST (Injection Mold Tooling Technician) /TLC Dec 06, 2021 12:[address] CHEST (INCLUDES ADRENALS): [facility]ESSIE [facility]Y [facility] [id number] -1950 M [facility]]OC Exm Date: DEC 06, 2021@12:59 Req Phys: GONZALOJELANI Loc: [facility] ED DAYS M 1RD (Req'g Loc) Img Loc: CT SCAN (OOS) Service: Unknown (Case [id number] COMPLETE) CT THORAX W/O CONT (CT Detai led) CPT:98226 Reason for Study: Opacification right chest Clinical History: No contrast allergy BUN: 13 (12/06/21 12:00) CREATI: 0.90 (12/06/21 12:00) eGFR 05/16/21 09:43 52 L Weight: 232.6 lb [105.51 kg] (12/06/2021 11:40) BODY MASS INDEX - NO HEIGHTS FOUND Pager number: [phone] STAT orders MUST be called t o RADIOLOGY [phone] to speak to the appropriate polysomnographic technician. Indications - Other: Opacification right chest, covid positive, lung cancer histo Report Status: Verified Date Reported: DEC 06, 2021 Date Verified: DEC 06, 2021 Injection Mold Tooling Technician E-Sig:/ES/JESSIE CHENEY Report: CT THORAX W/O [...] REQUIRED Primary Interpreting Staff: JESSIE CHENEY, RADIOLOGIST (Injection Mold Tooling Technician) Primary Interpreting Resident: PRINCE CHAMPION, Resident /BR Dec 06, 2021 11:58 AM CHEST SINGLE VIEW: JESSIE CHENEYT LUCAS MEEK N [id number] -1950 M [facility] Exm Date: DEC 06, 2021@11:58 Req Phys: JELANI SÁNCHEZ Pat Loc: [facility] ED DAYS M 1RD (Req'g Loc) Img Loc: XRAY (OOS) Service: Unknown (Case [id number] COMPLETE) CHEST SINGLE VIEW (RAD Detai led) CPT:84867 Proc Modifiers : PORTABLE EXAM Reason for Study: SOB, home covid test positive Clinical History: Report Status: Verified Date Reported: DEC 06, 2021 Date Verified: DEC 06, 2021 Injection Mold Tooling Technician E-Sig:/ES/JESSIE CHENEY Report: Exam type: Chest [...] REQUIRED Primary Interpreting Staff: JESSIE CHENEY, RADIOLOGIST (Injection Mold Tooling Technician) /TLC Pathology Reports: +/- 30 days [...] [facility] [CLIA# [id number]] [address] [place] [address] - - - - - - [...] automatically d ocumented from SURGERY package case #[id number] Field (#32) PRINCIPAL PRE-OP DIAGNOSIS, (#.72) OTHER [...] automatically d ocumented from SURGERY package case #[id number] Field (#34) PRINCIPAL POST-OP DIAG, (#.74) OTHER [...] Label: Lucas Meek Paperwork: Lucas Meek Cassette: [id number];..;KALYANI;.;405;[phone] Specimen is labeled: ES bx Received in formalin are several pieces of pale boyd and brown tissue, 1.2 x 0.7 cm in aggregate. Submitted entirely in 1 cassette [id number];..;KALYANI;.;405;[id number] SAW 12/15/2021 Microscopic exam: *+* MODIFIED REPORT [...] report in rendering the final pathologic diagnosis. [address] [address] CPT: 81125 /emely/ NIURKA Yeung MD Signed Jan 03, 2022@10:28 Performing Laboratory: Surgical Pathology Report Performed By: [facility] MONTOYA [facility] [CLIA# [id number]] [address] [place] [address] $FTR - - - - - [...] - - LUCAS MEEK STANDARD FORM 515 ID:[id number] SEX:M :1950 AGE: 71 LOC: [facility] END PCP: Isatu Todd /emely/ NIURKA MILLER Staff Signed: 01/03/2022 10:28 Dec 21, 2021 11:46 AM LR SURGICAL PATHOLOGY REPORT: STEFANY MILLER [facility] LOCAL TITLE: LR SURGICAL PATHOLOGY REPORT [facility] STANDARD TITLE: PATHOLOGY REPORT DATE OF NOTE: DEC 21, 2021@11:46:59 ENTRY DATE: DEC 21, 2021@11:46:59 AUTHOR: NIURKA MILLER EXP COSIGNER: URGENCY: STATUS: COMPLETED $APHDR Reporting Lab: [facility] [CLIA# [id number]] [address] [place] [address] - - - - - - [...] automatically d ocumented from SURGERY package case #[id number] Field (#32) PRINCIPAL PRE-OP DIAGNOSIS, (#.72) OTHER [...] automatically d ocumented from SURGERY package case #[id number] Field (#34) PRINCIPAL POST-OP DIAG, (#.74) OTHER [...] Label: Lucas Meek Paperwork: Lucas Meek Cassette: [id number];..;KALYANI;.;405;[phone] Specimen is labeled: ES bx Received in formalin are several pieces of pale boyd and brown tissue, 1.2 x 0.7 cm in aggregate. Submitted entirely in 1 cassette [id number];..;KALYANI;.;405;[id number] SAW 12/15/2021 Microscopic exam: DIAGNOSIS: A. 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 Kendell long. TIARA Coombs was notified on 12/21/21. The attending pathologist who signature mansoor ears on this report has reviewed all diagnostic slides and has edited t he gross and/or microscopic portion of this report in rendering the final pathologic diagnosis. [address] [address] CPT: 56317 /emely/ NIURKA Yeung MD Signed Dec 21, 2021@11:46 Performing Laboratory: Surgical Pathology Report Performed By: [facility] [CLIA# [id number]] [address] [place] [address] $FTR - - - - - [...] - - LUCAS MEEK STANDARD FORM 515 ID:[id number] SEX:M :1950 AGE: 71 LOC: [facility] END PCP: Isatu Todd /charmaine Yeung MD Signed: 12/21/2021 11:46 Dec 06, 2021 03:30 PM LR MICROBIOLOGY REPORT: [facility] Reporting Lab: [facility] [CLIA# [id number]] [address] [place] [address] Accession [UID]: [id number] [[id number]] Receiv ed: Dec 06, 2021@16:14 Collection sample: BLOOD CUL T BOTTLE(NIRMAL/AERO)Collection date: Dec 06, 2021 15:30 Site/Specimen: BLOOD Provider: JELANI SÁNCHEZ Comment on specimen: LAC Test(s) ordered: BLOOD CULTURE ANAEROBI C....... completed: Dec 12, 2021 06:18 * BACTERIOLOGY FINAL REPORT => Dec 12, 2021 06:1 8 TECH CODE: [id number] Bacteriology Remark(s): NO GROWTH IN 5 DAYS =--=--=--=--=--=--=--=--=--=--=--=--=--= --=--=--=--=--=--=--=--=--=--=--=--=-- Performing Laboratory: Bacteriology Report Performed By: [facility] [CLIA# [id number]] [address] [place] [address] Dec 06, 2021 03:30 PM LR MICROBIOLOGY REPORT: [facility] Reporting Lab: [facility] [CLIA# [id number]] [address] [place] [address] Accession [UID]: [id number] [[id number]] Receiv ed: Dec 06, 2021@16:14 Collection sample: BLOOD CUL T BOTTLE(NIRMAL/AERO)Collection date: Dec 06, 2021 15:30 Site/Specimen: BLOOD Provider: JELANI SÁNCHEZ Comment on specimen: LAC Test(s) ordered: BLOOD CULTURE AEROBIC. ........ completed: Dec 12, 2021 06:17 * BACTERIOLOGY FINAL REPORT => Dec 12, 2021 06:1 7 TECH CODE: [id number] Bacteriology Remark(s): NO GROWTH IN 5 DAYS =--=--=--=--=--=--=--=--=--=--=--=--=--= --=--=--=--=--=--=--=--=--=--=--=--=-- Performing Laboratory: Bacteriology Report Performed By: [facility] [CLIA# [id number]] [address] [place] [address]
--- OUTSIDE RECORDS SUMMARY | 2022-01-19 09:13 | XMS_ITS ---
DAILY HOSPITALIZATION DATA [facility] Encounter Summary Created on:December 11, 2021 Patient:LUCAS MEEK Sex:Male :1950 Author Organization [facility] Address [address] [place] [id number] Support Name Relationship Address Phone YUSRA MEEK Unavailable [address] [place] [place] [address] YUSRA MEEK Unavailable [address] [place] [facility] [place] [address] CLAY MOSLEY Unavailable Unavailable SJ SANTACRUZ Unavailable [...] MEDICARE MEDICARE PART Jun 18, PART A [id number] DO KALYANI PATIENT (WNR) (M) A 2016 13A 1 UGLAS MEDICARE MEDICARE PART Jun 18, PART B [id number] DO KALYANI PATIENT (WNR) (M) B 2016 13A 1 U[place]AS MEDICARE MEDICARE PART Jun 18, PART A [id number] KALYANIDO PATIENT (WNR) (M) A 2017 VH81 2 U[place]AS MEDICARE MEDICARE PART Jun 18, PART B [id number] DO KALYANI PATIENT (WNR) (M) B 2017 VH81 2 U[place]AS UNITED MEDICARE MCR(Jun 18 [id number] Luz MEEK PATIENT HEALTHCARE ADVANTAGE NR) 2021 37 0 [facility] (WNR) Selected Encounter This section includes the information on record at [place] for the Encounter. Date/Time Encounter Type Encounter Description Reason Provider Source Dec 11, 2021 01:05 Inpatient Visit DAILY HOSPITALIZATION DATA PM IHE [...] [place] [facility] Jan 10, 2022 11:30 AM AMBULATORY - MEDICINE [facility] Jan 24, 2022 08:00 AM [place] [facility] Feb 21, 2022 10:00 AM [place] [facility] Mar 21, [...] The data comes from all [place] treatment [facility]. Test Date/Time Test Type Test Details Facility Name October 31, 2021 07:37 AM Consult Order COMMUNITY CARE-EGD [facility] Cons [facility] November 15, 2021 10:37 AM Consult Order [facility] CARE-PODIATRY Cons [facility] Dec 06, 2021 12:52 PM Pharmacy [place] Infusion Order [facility] Dec 06, 2021 03:24 PM Pharmacy [place] [facility] Dec 06, 2021 03:40 PM Pharmacy [place] [facility] Dec 15, 2021 08:41 AM Consult Order SPEECH PATHOLOGY [place] OUTPAT[place] Cons [facility] Jan 15, 2022 10:08 PM Consult Order [facility] CARE-PALLIATIVE CARE Cons [facility] Lab Results: +/- 30 days of [...] Reference Range Comment Dec 15, 2021 [place] P4 GLU,BUN,CREAT,LYTES,CA Speci men Type: PLASMA 06:43 AM [facility] Comment: Tests performed on Hitsbook (405) SN:[id number] Ordering Provid er: ISATU TODD Report Released Date/Time: Dec 11, 2021 07:42 AM Reporting Lab: [facility] [address] [facility] [address] Performing Lab: [facility] [address] [facility] [address] UREA NITROGEN 9 7-25 SODIUM 137 135-145 [...] T [facility] [address] [facility] [address] Performing Lab: [facility] [address] [facility] [address] WBC 5.7 4.5-11.0 RBC 4.22 L 4.23-5.66 [...] 2 NUE, FFPE See full report in DNsolution Image display viewer/tab#LAB-Reference Ordering Provid er: NIURKA MILLER Report Released Date/Time: Dec 21, 2021 12:11 PM Reporting Lab: [facility] [address] [facility] [address] Performing Lab: [facility] CYTOGENETIC FISH([facility]) comment Dec 14, 2021 [facility] P4 GLU,BUN,CREAT,LYTES,CA Speci men Type: PLASMA 06:27 AM [facility] Comment: Tests performed on Hitsbook (405) SN:[id number] Ordering Provid er: ISATU TODD Report Released Date/Time: Dec 11, 2021 07:42 AM Reporting Lab: [facility] [address] [facility] [address] Performing Lab: [facility] [address] [facility] [address] UREA NITROGEN 10 7-25 SODIUM 137 135-145 [...] [facility] [address] [facility] [address] Performing Lab: [facility] [address] [facility] [address] WBC 6.0 4.5-11.0 RBC 4.29 4.23-5.66 HGB [...] GLU,BUN,CREAT,LYTES,CA Speci men Type: PLASMA 06:34 AM [facility] Comment: Tests performed on Hitsbook (405) SN:[id number] Ordering Provid er: ISATU TODD Report Released Date/Time: Dec 11, 2021 07:42 AM Reporting Lab: [facility] [address] [facility] [address] Performing Lab: [facility] [address] [facility] [address] UREA NITROGEN 12 7-25 SODIUM 136 135-145 [...] [facility] [address] [facility] [address] Performing Lab: [facility] [address] [facility] [address] WBC 5.6 4.5-11.0 RBC 4.28 4.23-5.66 HGB [...] GLU,BUN,CREAT,LYTES,CA Speci men Type: PLASMA 06:21 AM [facility] Comment: Tests performed on Hitsbook (405) SN:[id number] Ordering Provid er: ISATU TODD Report Released Date/Time: Dec 11, 2021 07:42 AM Reporting Lab: [facility] [address] [facility] [address] Performing Lab: [facility] [address] [facility] [address] UREA NITROGEN 11 7-25 SODIUM 139 135-145 [...] Dec 10, 2021 07:22 AM Reporting Lab: [facility] [address] [facility] [address] Performing Lab: [facility] [address] [facility] [address] WBC 5.5 4.5-11.0 RBC 4.37 4.23-5.66 HGB [...] 0.00 0-0 Dec 12, 2021 06:00 AM [employer] MAGNESIUM Sp ecimen Type: PLASMA Comment: Testin g Performed on Hitsbook (405) SN:[id number] Ordering Provid er: ISATU TODD Report Released Date/Time: Dec 12, 2021 08:24 AM Reporting Lab: [place] [employer] [facility] [address] [facility] [address] Performing Lab: [facility] [place] [employer]ser SoftwareT Liquid ScenariosMROC [address] [facility] [address] MAGNESIUM 1.8 1.6-2.6 Dec 12, 2021 06:00 AM [employer]T [employer] ScenariosMROC PHOSPHORUS Sp ecimen Type: PLASMA Comment: Testin g Performed on Hitsbook (405) SN:[id number] Ordering Provid er: ISATU TODD Report Released Date/Time: Dec 12, 2021 08:24 AM Reporting Lab: [place] [employer] [facility] [address] [facility] [address] Performing Lab: [place] [employer]en[employer] [address] [facility] [address] PHOSPHORUS 3.1 2.5-5.0 Dec 11, 2021 06:15 AM [employer] [facility] [place] [employer] ScenariosMROC ELECTROLYTES Sp ecimen Type: PLASMA Comment: Tests performed on Hitsbook (405) SN:[id number] Ordering Provid er: ISATU TODD Report Released Date/Time: Dec 10, 2021 07:22 AM Reporting Lab: [place] [employer]T [facility] [address] [facility] [address] Performing Lab: [place] [employer] [facility] [address] [facility] [address] SODIUM 137 135-145 POTASSIUM 4.3 3.5-5.0 CHLORIDE 108 100-110 CARBON DIOXIDE 20 20-30 ANION GAP 9 4-16 Dec 11, 2021 06:15 AM [place] TV[facility] MedicalT [facility] CBC PROFILE Sp ecimen Type: BLOOD Comment: Result s checked Ordering Provid er: ISATU TODD Report Released Date/Time: Dec 10, 2021 07:22 AM Reporting Lab: [facility] OMEGAT [facility] [address] [facility] [address] Performing Lab: [facility] [place] OMEGAT [facility] [address] [facility] [address] WBC 5.8 4.5-11.0 RBC 4.37 4.23-5.66 HGB [...] 0.00 0-0 Dec 11, 2021 06:00 AM [facility] PHOSPHORUS Sp ecimen Type: PLASMA Comment: Tests performed on Hitsbook (846) SN:[id number] Results checked Ordering Provid er: ISATU TODD Report Released Date/Time: Dec 11, 2021 07:44 AM Reporting Lab: [facility] [address] [facility] [address] Performing Lab: [place] OMEGAT NCMROC [address] [facility] [address] PHOSPHORUS 3.0 2.5-5.0 Dec 10, 2021 08:05 AM [place] [facility] MAGNESIUM Sp ecimen Type: PLASMA Comment: [place] [id number] on Dec 10, 2021@08:31 Tests performed on Hitsbook (405) SN:[id number] Ordering Provid er: ISATU TODD Report Released Date/Time: Dec 10, 2021 07:22 AM Reporting Lab: [place] [facility] [address] [place] [facility] [place] [place] [address] Performing Lab: [place] [facility] [address] [place] [facility] [place] [place] [address] MAGNESIUM 1.7 1.6-2.6 Dec 10, 2021 08:05 AM [place] [facility] PHOSPHORUS Sp ecimen Type: PLASMA Comment: [place] [id number] on Dec 10, 2021@08:31 Tests performed on Hitsbook (405) SN:[id number] Ordering Provid er: ISATU TODD Report Released Date/Time: Dec 10, 2021 07:22 AM Reporting Lab: [place] [facility] [address] [place] [facility] [place] [place] [address] Performing Lab: [place] [facility] [address] [place] [facility] [place] [place] [address] PHOSPHORUS 1.8 L 2.5-5.0 Dec 10, 2021 08:05 AM [place] UREA NITROGEN Specimen Type: PLASMA [facility] Comment: [place] [id number] on Dec 10, 2021@08:31 Tests performed on Hitsbook (405) SN:[id number] Ordering Provid er: ISATU TODD Report Released Date/Time: Dec 10, 2021 07:22 AM Reporting Lab: [place] [facility] [address] [place] [facility] [place] [address] Performing Lab: [place] [facility] [address] [place] [facility] [place] [address] UREA NITROGEN 8 7-25 Dec 10, 2021 08:05 AM [place] [facility] GLUCOSE Sp ecimen Type: PLASMA Comment: [place] [id number] on Dec 10, 2021@08:31 Tests performed on Hitsbook (405) SN:[id number] Ordering Provid er: ISATU TODD Report Released Date/Time: Dec 10, 2021 07:22 AM Reporting Lab: [place] [facility] [address] [facility] [address] Performing Lab: [place] [facility] [address] [facility] [address] GLUCOSE 144 H 65-100 Dec 10, 2021 08:05 AM [place] [facility] ELECTROLYTES Sp ecimen Type: PLASMA Comment: [place] [id number] on Dec 10, 2021@08:31 Tests performed on Hitsbook (405) SN:[id number] Ordering Provid er: ISATU TODD Report Released Date/Time: Dec 10, 2021 07:22 AM Reporting Lab: [place] [facility] [address] [facility] [address] Performing Lab: [place] [facility] [address] [facility] [address] SODIUM 139 135-145 POTASSIUM 3.7 3.5-5.0 CHLORIDE 107 100-110 CARBON DIOXIDE 24 20-30 ANION GAP 8 4-16 Dec 10, 2021 08:05 AM [place] [facility] CALCIUM Sp ecimen Type: PLASMA Comment: [place] [id number] on Dec 10, 2021@08:31 Tests performed on Hitsbook (405) SN:[id number] Ordering Provid er: ISATU TODD Report Released Date/Time: Dec 10, 2021 07:22 AM Reporting Lab: [place] [facility] [address] [facility] [address] Performing Lab: [place] [facility] [address] [facility] [address] CALCIUM 8.3 L 8.5-10.5 Dec 10, 2021 08:05 AM [place] [facility] CBC PROFILE Sp ecimen Type: BLOOD No comment enter ed. Ordering Provid er: ISATU TODD Report Released Date/Time: Dec 10, 2021 07:22 AM Reporting Lab: [place] [facility] [address] [facility] [address] Performing Lab: [place] [facility] [address] [facility] [address] WBC 7.0 4.5-11.0 RBC 4.54 4.23-5.66 HGB [...] PLASMA AM [facility] PANEL [place]: [place] [id number] on Dec 10, 2021@08:31 Tests performed on Hitsbook (405) SN:[id number] Ordering Provid er: ISATU TODD Report Released Date/Time: Dec 10, 2021 07:22 AM Reporting Lab: [facility] [address] [facility] [address] Performing Lab: [facility] [address] [facility] [address] CREATININE 0.78 0.5-1.5 eGFR(CKD-EPI 2020) >90.0 >60 Dec 09, 2021 06:46 AM [place] [facility] MAGNESIUM Sp ecimen Type: PLASMA Comment: Tests performed on Hitsbook (405) SN:[id number] Ordering Provid er: ISATU TODD Report Released Date/Time: Dec 08, 2021 10:23 AM Reporting Lab: [place] [facility] [address] [facility] [address] Performing Lab: [place] [facility] [address] [facility] [address] MAGNESIUM 1.6 1.6-2.6 Dec 09, 2021 [facility] P4 GLU,BUN,CREAT,LYTES,CA Speci men Type: PLASMA 06:46 AM [facility] Comment: Tests performed on Hitsbook (405) SN:[id number] Ordering Provid er: ISATU TODD Report Released Date/Time: Dec 08, 2021 05:00 PM Reporting Lab: [facility] [address] [facility] [address] Performing Lab: [facility] [address] [facility] [address] UREA NITROGEN 6 L 7-25 SODIUM 134 [...] [facility] [address] [facility] [address] Performing Lab: [facility] [address] [facility] [address] WBC 7.1 4.5-11.0 RBC 4.40 4.23-5.66 HGB [...] 0.00 0-0 Dec 08, 2021 06:39 AM [place] T [facility] MAGNESIUM Sp ecimen Type: PLASMA Comment: Testin g Performed on Hitsbook (405) SN:[id number] Ordering Provid er: ISATU TODD Report Released Date/Time: Dec 07, 2021 10:32 AM Reporting Lab: [facility] [address] [facility] [address] Performing Lab: [facility] [address] [facility] [address] MAGNESIUM 1.5 L 1.6-2.6 Dec 08, 2021 [place] P4 GLU,BUN,CREAT,LYTES,CA Speci men Type: PLASMA 06:39 AM [facility] Comment: Testin g Performed on Hitsbook (405) SN:[id number] Ordering Provid er: ISATU TODD Report Released Date/Time: Dec 07, 2021 10:32 AM Reporting Lab: [employer] T [facility] [address] [facility] [address] Performing Lab: [facility] [address] [facility] [address] UREA NITROGEN 6 L 7-25 SODIUM 136 135-145 POTASSIUM 3.3 L 3.5-5.0 CHLORIDE 104 100-110 CARBON DIOXIDE 22 20-30 ANION GAP 10 4-16 GLUCOSE 133 H 65-100 CREATININE 0.76 0.5-1.5 CALCIUM 8.4 L 8.5-10.5 eGFR(CKD-EPI 2020) >90.0 >60 Dec 08, 2021 06:39 AM [place] T [facility] CBC PROFILE Sp ecimen Type: BLOOD No comment enter ed. Ordering Provid er: ISATU TODD Report Released Date/Time: Dec 07, 2021 10:32 AM Reporting Lab: [facility] [address] [facility] [address] Performing Lab: [facility] [address] [facility] WBC [...] LIVER PROFILE Specimen Typ e: PLASMA AM [facility] Comment: Tests performed on Hitsbook (405 SN:[id number] Ordering Provid er: PORFIRIO WALTERS Report Released Date/Time: Dec 06, 2021 06:57 PM Reporting Lab: [facility] [address] [facility] [address] Performing Lab: [facility] [address] [facility] [address] PROTEIN, TOTAL 5.7 L 6.0-8.5 ALBUMIN 2.4 L 3.2-5.0 BILIRUBIN, TOTAL 0.4 0.2-1.2 ALKALINE PHOSPHATASE 109 40-150 ALT(SGPT) 10 7-52 AST(SGOT) 15 5-34 FIB-4 SCORE 1.92 <2.67 Dec 07, 2021 [facility] P4 GLU,BUN,CREAT,LYTES,CA Speci men Type: PLASMA 06:42 AM [facility] Comment: Tests performed on Hitsbook (405) SN:[id number] Ordering Provid er: PORFIRIO WALTERS Report Released Date/Time: Dec 06, 2021 06:57 PM Reporting Lab: [place] [facility] [address] [facility] [address] Performing Lab: [place] [facility] [address] [facility] [address] UREA NITROGEN 9 7-25 SODIUM 135 135-145 POTASSIUM 3.5 3.5-5.0 CHLORIDE 103 100-110 CARBON DIOXIDE 22 20-30 ANION GAP 10 4-16 GLUCOSE 92 65-100 CREATININE 0.73 0.5-1.5 CALCIUM 8.0 L 8.5-10.5 eGFR(CKD-EPI 2020) >90.0 >60 Dec 07, 2021 06:42 AM [place] CBC PROFILE Specimen Type: BLOOD [facility] No comment enter ed. Ordering Provid er: PORFIRIO WALTERS Report Released Date/Time: Dec 06, 2021 06:57 PM Reporting Lab: [place] [facility] [address] [facility] [address] Performing Lab: [facility] [address] [facility] [address] WBC 5.7 4.5-11.0 RBC 4.15 L 4.23-5.66 [...] [facility] %) AUTOMATED Comment: Tests performed on Hitsbook (405) SN:[id number] Ordering Provid er: ISAUT TODD Report Released Date/Time: Dec 07, 2021 10:28 AM Reporting Lab: [place] [facility] [address] [facility] [address] Performing Lab: [place] [facility] [address] [facility] [address] RETICULOCYTES (%) AUTOMATED 1.23 0. 6-2.0 RETICULOCYTES (ABS) AUTOMATED 0.052 0.030-0.090 Dec 06, 2021 09:45 [place] MRSA SURVL NARES Specimen Ty pe: NARES PM [facility] DNA No comment enter ed. Ordering Provid er: ALVARO VARGHESE Report Released Date/Time: Dec 07, 2021 02:20 AM Reporting Lab: [place] [facility] [address] [facility] [address] Performing Lab: [place] [facility] [address] [facility] [address] MRSA SURVL NARES DNA NEGATIVE NEGATIVE Dec 06, 2021 06:00 [place] URINALYSIS W/REFLEX TO Speci men Type: URINE PM [facility] CULTURE No comment enter ed. Ordering Provid er: JELANI SÁNCHEZ Report Released Date/Time: Dec 06, 2021 11:57 AM Reporting Lab: [place] [facility] [address] [facility] [address] Performing Lab: [place] [facility] [address] [facility] [address] URINE COLOR Arlin YELLOW SPECIFIC GRAVITY 1.029 [...] 21, R[place] VARIANT Comment: https://www.cdc.gov/coronavirus/2019-ncov/cases-updates/variant- surveillance/variant-info.html The Typekit SARS CoV 2 [employer] Research Assay-GX is a next-generation sequencing [...] samples. The assay is run on the [employer] Sequencer, which performs automated library preparation, sequencing, analysis, and reporting. PM The sequence an alysis includes determination of viral phylogenetic lineage by comparison to the reference strain Wuhan-Hu-1, GenBank: [id number]. Sequence determination may not be possible owing [...] and its performance characteristics determined by the [facility], which is certified under the Clinical Laboratory Improveme nt Amendments (C MARCO) as qualified to perform high complexity clinical laboratory testing. This test is validated for clinical use at [facility] and should not be regarded as investigational or for research. The FDA does not require this test to go through premarket FDA review, and therefore it has not been cleared or approved by the FDA. This report was reviewed and approved by the on-service pathologist. Ordering Provid er: JELANI SÁNCHEZ Report Released Date/Time: Dec 06, 2021 01:13 PM Reporting Lab: [facility] [address] [facility] [address] Performing Lab: [facility] [address] [facility] [address] SARS-CoV-2 CLADE() 22C (OMICRON) SARS-CoV-2 LINEAGE() BA.2.12.1 Dec 06, 2021 12:00 [facility] COVID-19 AG SCREEN Specimen Type: NASAL CAVITY PM [facility] PANEL BINAX(405) Comment: Testi ng Performed By: Mike Briscoe Ordering Provid er: JELANI SÁNCHEZ Report Released Date/Time: Dec 08, 2021 08:23 AM Reporting Lab: [facility] [address] [facility] [address] Performing Lab: [facility] [address] [facility] [address] COVID-19 AG SCRN(wrj BINAX) POSITIVE HH NE G Dec 06, 2021 12:00 PM [facility] LIVER PROFILE Sp ecimen Type: PLASMA Comment: Testin g Performed on Pham Household Assistant (405) SN:[id number] Ordering Provid er: JELANI SÁNCHEZ Report Released Date/Time: Dec 06, 2021 11:57 AM Reporting Lab: [facility] [address] [facility] [address] Performing Lab: [facility] [address] [facility] [address] PROTEIN, TOTAL 6.6 6.0-8.5 ALBUMIN 2.8 L 3.2-5.0 BILIRUBIN, TOTAL 0.6 0.2-1.2 ALKALINE PHOSPHATASE 134 40-150 ALT(SGPT) 13 7-52 AST(SGOT) 18 5-34 FIB-4 SCORE 1.94 <2.67 Dec 06, 2021 12:00 PM [facility] Sp ecimen Type: PLASMA Comment: Tests performed on Pham Household Assistant (405) SN:[id number] Ordering Provid er: JELANI SÁNCHEZ Report Released Date/Time: Dec 06, 2021 11:57 AM Reporting Lab: [facility] [address] [facility] [address] Performing Lab: [facility] [address] [facility] [address] TROPONIN II 0.03 0.00-0.29 Dec 06, 2021 [facility] P4 GLU,BUN,CREAT,LYTES,CA Speci men Type: PLASMA 12:00 PM [facility] Comment: Testin g Performed on Pham Household Assistant (405) SN:[id number] Ordering Provid er: JELANI SÁNCHEZ Report Released Date/Time: Dec 06, 2021 11:57 AM Reporting Lab: [facility] [facility] [facility] [address] [facility] [address] Performing Lab: [facility] [address] [facility] [address] UREA NITROGEN 13 7-25 SODIUM 138 135-145 POTASSIUM 3.8 3.5-5.0 CHLORIDE 103 100-110 CARBON DIOXIDE 23 20-30 ANION GAP 12 4-16 GLUCOSE 105 H 65-100 CREATININE 0.90 0.5-1.5 CALCIUM 8.7 8.5-10.5 eGFR(CKD-EPI 2020) >90.0 >60 Dec 06, 2021 12:00 PM [facility] BNP(P) Sp ecimen Type: PLASMA Comment: Tests performed on Pham Household Assistant (405) SN:[id number] Ordering Provid er: JELANI SÁNCHEZ Report Released Date/Time: Dec 06, 2021 11:57 AM Reporting Lab: [facility] [address] [facility] [address] Performing Lab: [facility] [address] [facility] [address] BNP(P) 224.8 H 10-100 Dec 06, 2021 [place] COVID-19+FLU/RSV DIAGNOSTIC Spe cimen Type: NASOPHARYNX 12:00 PM [facility] PANEL(405) Comment: Tests performed on Toperaxpert (405) Critical results called to and read back by: ALESHIA WILKINSON RN 12/06/21 @ 1312 Ordering Provid er: JELANI SÁNCHEZ Report Released Date/Time: Dec 06, 2021 11:57 AM Reporting Lab: [facility] T [facility] [address] [facility] [address] Performing Lab: [place] [facility] [address] [facility] [address] FLU A(PCR) NEGATIVE NEGATIVE FLU B(PCR) NEGATIVE NEGATIVE RSV(PCR) NEGATIVE NEGATIVE COVID-19(VJU-uzs-RXCYTAVRY) DETECTED HH NO T DETECTED Dec 06, 2021 12:00 PM [facility] Sp ecimen Type: BLOOD No comment enter ed. Ordering Provid er: JELANI SÁNCHEZ Report Released Date/Time: Dec 06, 2021 11:57 AM Reporting Lab: [facility] [address] [facility] [address] Performing Lab: [facility] [address] [facility] [address] WBC 7.2 4.5-11.0 RBC 4.86 4.23-5.66 HGB [...] 2021 07:56 /min mm[Hg] RIVER PM T [facility] Dec 11, 3 WHITE 2021 07:49 RIVER PM T [facility] Dec 11, 98.3 F 98 127/83 18 /min 97 % 0 WHITE 2021 02:50 /min mm[Hg] RIVER PM T [facility] Dec 11, 0 WHITE 2021 01:57 RIVER PM T [facility] Dec 11, 0 WHITE 2021 08:49 RIVER AM [facility] Social History: Smoking Status (Most current) [...] Smoking Status/Tobacco Use Comment [facility] Apr 01, 2020 01:16 PM [...] TOBACCO USE IN PAST YEAR [facility] DOYLE [facility] May 01, 2016 11:19 AM QUIT TOBACCO USE IN PAST YEAR CAREY MONTOYA [facility] Mar 16, 2016 12:50 PM V1-PT DECLINES REF TO TOBACCO CAREY DOYLE [facility] CESS PRGM Mar 16, 2016 12:50 PM V1-PT THINKING ABOUT QUIT CAREY DOYLE [facility] TOBACCO USE Aug 12, 2015 08:48 AM CURRENT SMOKER CAREY Yates [facility] Radiology Reports: +/- 30 days of [...] W/WO CONTRAST: MARYELLEN LONG LUCAS LARES N [id number] -1950 [facility] Exm Date: DEC 13, 2021@12:57 Req Phys: ISATU TODD Loc: OP Unknown/0 12-15-2021@13:20 Img Loc: MRI IMAGING ([facility]OS) Service: ZGENERAL MEDICINE (Case [id number] COMPLETE) MRI ABDOMEN W/WO CONTRAST (M RI Detailed) CPT:99199 Reason for Study: further characterization of a [...] new lyphadenopathy REQUESTING MD: Isatu Todd PAGER: [phone] PHONE: [phone] Weight: 232.2 lb [105.32 kg] (12/12/2021 05:00) [...] patient will need to arrange for a furniture mover driver to take him/her home after the [...] 15, 2021 Date Verified: DEC 15, 2021 Retail Store Clerk E-Sig:/ES/MARYELLEN LONG Report: MRI ABDOMEN W/WO [...] MALIGNANCY Primary Interpreting Staff: Staff AMELIA THOMAS (Retail Store Clerk) / Dec 10, 2021 09:[address] ABDOMEN & PELVIS: RADIOLOGY,OUTSIDE [facility] LUCAS MEEK N [id number] -1950 M SERVICE [facility] Exm Date: DEC 10, 2021@09:30 Req Phys: ISATU TODD Loc: 1S MED/12-10@10:57 Img Loc: CT SCAN (OOS) Service: [facility] MEDICINE (Case [id number] COMPLETE) CT ABD & PELVIS WITHOUT CONT RAST (CT Detailed) CPT:14240 Reason for Study: 71 yo male with [...] INDEX - NO HEIGHTS FOUND Pager number: [phone] STAT orders MUST be call ed to RADIOLOGY [phone] to speak to the appropriate phone technician. Report Status: Verified Date Reported: DEC 10, 2021 Date Verified: DEC 10, 2021 Retail Store Clerk E-Sig: Report: EXAM: CT abdomen and [...] ph nodes. READING PHYSICIAN: Ramone Munoz D.O. -[phone] 12/10/2021 10:55 EDT [facility] National Teleradiology Program [phone] (For Medical Practitioner Use Only ) [address] [facility], [facility] [address] [place] [address] Attention Patients / Veterans: If you have ques tions or concerns about these test results, please contact your o rdering provider or primary care team. Primary Diagnostic Code: SIGNIFICANT ABNORMALIT Y, ATTN NEEDED Primary Interpreting Staff: RADIOLOGY,OUTSIDE SERVICE, Staff Physician / Dec 09, 2021 07:34 AM BASW (MODIFIED): JESSIE CHENEY TARA ER JCT LUCAS MEEK [id number] -1950 M [facility] Exm Date: DEC 09, 2021@07:34 Req Phys: ISATU TODD Yao Manjarrez Loc: 1S MED/12-09@11:26 Img Loc: XRAY (OOS) Service: [facility] MEDICINE (Case [id number] COMPLETE) BASW (MODIFIED) (RAD Detaile d) CPT:05907 Contrast Media : Barium Reason for Study: dysphagia ?esophageal spasm Clinical History: Report Status: Verified Date Reported: DEC 09, 2021 Date Verified: DEC 09, 2021 Retail Store Clerk E-Sig:/ES/JESSIE CHENEY Report: BASW (MODIFIED) , [...] REQUIRED Primary Interpreting Staff: JESSIE CHENEY, RADIOLOGIST (Retail Store Clerk) /TLC Dec 06, 2021 12:[address] CHEST (INCLUDES ADRENALS): JESSIE CHENEY [facility] N [id number] -1950 M [facility] Exm Date: DEC 06, 2021@12:59 Req Phys: GONZALOJELANI Loc: [facility] ED DAYS M 1RD (Req'g Loc) Img Loc: CT SCAN (OOS) Service: Unknown (Case [id number] COMPLETE) CT THORAX W/O CONT (CT Detai led) CPT:86274 Reason for Study: Opacification right chest Clinical History: No contrast allergy BUN: 13 (12/06/21 12:00) CREATI: 0.90 (12/06/21 12:00) eGFR 05/16/21 09:43 52 L Weight: 232.6 lb [105.51 kg] (12/06/2021 11:40) BODY MASS INDEX - NO HEIGHTS FOUND Pager number: [phone] STAT orders MUST be called t o RADIOLOGY [phone] to speak to the appropriate phone technician. Indications - Other: Opacification right chest, covid positive, lung cancer histo Report Status: Verified Date Reported: DEC 06, 2021 Date Verified: DEC 06, 2021 Retail Store Clerk E-Sig:/ES/JESSIE CHENEY Report: CT THORAX W/O [...] REQUIRED Primary Interpreting Staff: JESSIE CHENEY, RADIOLOGIST (Retail Store Clerk) Primary Interpreting Resident: PRINCE CHAMPION, Resident /BR Dec 06, 2021 11:58 AM CHEST SINGLE VIEW: JESSIE CHENEYT LUCAS MEEK N [id number] -1950 M [facility] Exm Date: DEC 06, 2021@11:58 Req Phys: JELANI SÁNCHEZ Pat Loc: [facility] ED DAYS M 1RD (Req'g Loc) Img Loc: XRAY (OOS) Service: Unknown (Case [id number] COMPLETE) CHEST SINGLE VIEW (RAD Detai led) CPT:50245 Proc Modifiers : PORTABLE EXAM Reason for Study: SOB, home covid test positive Clinical History: Report Status: Verified Date Reported: DEC 06, 2021 Date Verified: DEC 06, 2021 Retail Store Clerk E-Sig:/ES/JESSIE CHENEY Report: Exam type: Chest [...] REQUIRED Primary Interpreting Staff: JESSIE CHENEY, RADIOLOGIST (Retail Store Clerk) /TLC Pathology Reports: +/- 30 days [...] MILLER LOCAL TITLE: LR SURGICAL PATHOLOGY REPORT [facility] STANDARD TITLE: PATHOLOGY REPORT DATE OF NOTE: JAN 03, 2022@10:28:01 ENTRY DATE: JAN 03, 2022@10:28:01 AUTHOR: NIURKA MILLER EXP COSIGNER: URGENCY: STATUS: COMPLETED $APHDR Reporting Lab: [facility] [CLIA# [id number]] [address] [place] [address] - - - - - - [...] automatically d ocumented from SURGERY package case #[id number] Field (#32) PRINCIPAL PRE-OP DIAGNOSIS, (#.72) OTHER [...] automatically d ocumented from SURGERY package case #[id number] Field (#34) PRINCIPAL POST-OP DIAG, (#.74) OTHER [...] Label: Lucas Meek Paperwork: Lucas Meek Cassette: [id number];..;KALYANI;.;405;[id number] Specimen is labeled: ES bx Received in formalin are several pieces of pale boyd and brown tissue, 1.2 x 0.7 cm in aggregate. Submitted entirely in 1 cassette [id number];..;KALYANI;.;405;[id number] SAW 12/15/2021 Microscopic exam: *+* MODIFIED REPORT [...] report in rendering the final pathologic diagnosis. [address] [address] CPT: 66888 /emely/ NIURKA Yeung MD Signed Jan 03, 2022@10:28 Performing Laboratory: Surgical Pathology Report Performed By: [facility] [CLIA# [id number]] [address] [place] [address] $FTR - - - - - [...] - - LUCAS MEEK STANDARD FORM 515 ID:[id number] SEX:M :1950 AGE: 71 LOC: SDM END PCP: Isatu Todd /emely/ NIURKA MILLER Staff Signed: 01/03/2022 10:28 Dec 21, 2021 11:46 AM LR SURGICAL PATHOLOGY REPORT: STEFANY MILLER [facility] LOCAL TITLE: LR SURGICAL PATHOLOGY REPORT [facility] STANDARD TITLE: PATHOLOGY REPORT DATE OF NOTE: DEC 21, 2021@11:46:59 ENTRY DATE: DEC 21, 2021@11:46:59 AUTHOR: NIURKA MILLER EXP COSIGNER: URGENCY: STATUS: COMPLETED $APHDR Reporting Lab: [facility] [CLIA# [id number]] [address] [place] [address] - - - - - - [...] automatically d ocumented from SURGERY package case #[id number] Field (#32) PRINCIPAL PRE-OP DIAGNOSIS, (#.72) OTHER [...] automatically d ocumented from SURGERY package case #[id number] Field (#34) PRINCIPAL POST-OP DIAG, (#.74) OTHER [...] Label: Lucas Meek Paperwork: Lucas Meek Cassette: [id number];..;KALYANI;.;405;[id number] Specimen is labeled: ES bx Received in formalin are several pieces of pale boyd and brown tissue, 1.2 x 0.7 cm in aggregate. Submitted entirely in 1 cassette [id number];..;KALYANI;.;405;[id number] SAW 12/15/2021 Microscopic exam: DIAGNOSIS: A. 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 Kendell long. TIARA Coombs was notified on 12/21/21. The attending pathologist who signature mansoor ears on this report has reviewed all diagnostic slides and has edited t he gross and/or microscopic portion of this report in rendering the final pathologic diagnosis. [address] [address] CPT: 30368 /emely/ NIURKA Yeung MD Signed Dec 21, 2021@11:46 Performing Laboratory: Surgical Pathology Report Performed By: [facility] [CLIA# [id number]] [address] [place] [address] $FTR - - - - - [...] - - LUCAS MEEK STANDARD FORM 515 ID:[id number] SEX:M :1950 AGE: 71 LOC: [facility] END PCP: Isatu Todd /charmaine Yeung MD Signed: 12/21/2021 11:46 Dec 06, 2021 03:30 PM LR MICROBIOLOGY REPORT: [facility] Reporting Lab: [facility] [CLIA# [id number]] [address] [place] [address] Accession [UID]: [id number] [[id number]] Receiv ed: Dec 06, 2021@16:14 Collection sample: BLOOD CUL T BOTTLE(NIRMAL/AERO)Collection date: Dec 06, 2021 15:30 Site/Specimen: BLOOD Provider: JELANI SÁNCHEZ Comment on specimen: LAC Test(s) ordered: BLOOD CULTURE ANAEROBI C....... completed: Dec 12, 2021 06:18 * BACTERIOLOGY FINAL REPORT => Dec 12, 2021 06:1 8 TECH CODE: [id number] Bacteriology Remark(s): NO GROWTH IN 5 DAYS =--=--=--=--=--=--=--=--=--=--=--=--=--= --=--=--=--=--=--=--=--=--=--=--=--=-- Performing Laboratory: Bacteriology Report Performed By: [facility] [CLIA# [id number]] [address] [place] [address] Dec 06, 2021 03:30 PM LR MICROBIOLOGY REPORT: [facility] Reporting Lab: [facility] [CLIA# [id number]] [address] [place] [address] Accession [UID]: [id number] [[id number]] Receiv ed: Dec 06, 2021@16:14 Collection sample: BLOOD CUL T BOTTLE(NIRMAL/AERO)Collection date: Dec 06, 2021 15:30 Site/Specimen: BLOOD Provider: JELANI SÁNCHEZ Comment on specimen: LAC Test(s) ordered: BLOOD CULTURE AEROBIC. ........ completed: Dec 12, 2021 06:17 * BACTERIOLOGY FINAL REPORT => Dec 12, 2021 06:1 7 TECH CODE: [id number] Bacteriology Remark(s): NO GROWTH IN 5 DAYS =--=--=--=--=--=--=--=--=--=--=--=--=--= --=--=--=--=--=--=--=--=--=--=--=--=-- Performing Laboratory: Bacteriology Report Performed By: [facility] [CLIA# [id number]] [address] [place] [address]
--- OUTSIDE RECORDS SUMMARY | 2022-01-19 09:14 | XMS_ITS ---
DAILY HOSPITALIZATION DATA CAREY DOYLE [facility] Encounter Summary Created on:December 11, 2021 Patient:LUCAS MEEK Sex:Male :1950 Author Organization [facility] Address [address] [place] [id number] Support Name Relationship Address Phone YUSRA MEEK Unavailable [address] [place] [address] YUSRA MEEK Unavailable [address] [place] [facility] [place] [address] CLAY MOSLEY Unavailable Unavailable SJ SANTACRUZ Unavailable [...] MEDICARE MEDICARE PART Jun 18, PART A [id number] DO KALYANI PATIENT (WNR) (M) A 2016 13A 1 U[place]AS MEDICARE MEDICARE PART Jun 18, PART B [id number] DO KALYANI PATIENT (WNR) (M) B 2016 13A 1 [place] MEDICARE MEDICARE PART Jun 18, PART A [id number] KALYANIDO PATIENT (WNR) (M) A 2017 VH81 2 [place] MEDICARE MEDICARE PART Jun 18, PART B [id number] DO KALYANI PATIENT (WNR) (M) B 2017 VH81 2 [place] UNITED MEDICARE MCR(Jun 18 [id number] Luz MEEK PATIENT HEALTHCARE ADVANTAGE NR) 2021 37 0 [facility] (WNR) Selected Encounter This section includes the information on record at [place] for the Encounter. Date/Time Encounter Type Encounter Description Reason Provider Source Dec 11, 2021 04:07 Inpatient Visit DAILY HOSPITALIZATION DATA PM IHE [...] 2022 10:00 AM AMBULATORY - SURGERY [place] [facility] Mar 21, 2022 [...] The data comes from all [place] [facility]. Test Date/Time Test Type Test Details Facility Name October 31, 2021 07:37 AM Consult Order [facility] Cons Car Installations Supervisor's Choice November 15, 2021 10:[address] [facility] Cons Car Installations Supervisor's Choice Dec 06, 2021 12:52 PM [...] [facility] Car Installations Supervisor's Choice Jan 15, 2022 10:[address] [facility] Cons Car Installations Supervisor's Choice Lab Results: +/- 30 days [...] Reference Range Comment Dec 15, 2021 [place] P4 GLU,BUN,CREAT,LYTES,CA Speci men Type: PLASMA 06:43 AM [facility] Comment: Tests performed on VisualXcript (405) SN:[id number] Ordering Provid er: ISATU TODD Report Released Date/Time: Dec 11, 2021 07:42 AM Reporting Lab: [facility]AREY DOYLE T [facility] [address] [facility] [address] Performing Lab: [facility] [address] [facility] [address] UREA NITROGEN 9 7-25 SODIUM 137 135-145 POTASSIUM 3.8 3.5-5.0 CHLORIDE 105 100-110 CARBON DIOXIDE 26 20-30 ANION GAP 6 4-16 GLUCOSE 102 H 65-100 CREATININE 0.64 0.5-1.5 CALCIUM 8.1 L 8.5-10.5 eGFR(CKD-EPI 2020) >90.0 >60 Dec 15, 2021 06:43 AM [facility] CBC PROFILE Sp ecimen Type: BLOOD No comment enter ed. Ordering Provid er: ISATU TODD Report Released Date/Time: Dec 10, 2021 07:22 AM Reporting Lab: [facility] DO[facility] T [facility] [address] [facility] [address] Performing Lab: [facility] [address] [facility] [address] WBC 5.7 4.5-11.0 RBC 4.22 L 4.23-5.66 [...] CYTOGENETIC Specimen Type: ESOPHAGUS 02:59 PM [facility]) Comment: ~For T est: CYTOGENETIC FISH([facility]) ~FISH HER 2 NUE, FFPE See full report in HotelQuickly Image display viewer/tab#LAB-Reference Ordering Provid er: NIURKA MILLER Report Released Date/Time: Dec 21, 2021 12:11 PM Reporting Lab: [facility] [address] [facility] [address] Performing Lab: [facility] CYTOGENETIC FISH([facility]) comment Dec 14, 2021 [facility] P4 GLU,BUN,CREAT,LYTES,CA Speci men Type: PLASMA 06:27 AM [facility]3] Comment: Tests performed on VisualXcript (405) SN:[id number] Ordering Provid er: ISATU TODD Report Released Date/Time: Dec 11, 2021 07:42 AM Reporting Lab: [facility] [address] [facility] [address] Performing Lab: [facility] [address] [facility] [address] UREA NITROGEN 10 7-25 SODIUM 137 135-145 [...] Reporting Lab: [facility] [address] [facility] [address] Performing Lab: [facility] [address] [facility] [address] WBC 6.0 4.5-11.0 RBC 4.29 4.23-5.66 HGB [...] [facility]] Comment: Tests performed on VisualXcript (405) SN:[id number] Ordering Provid er: ISATU TODD Report Released Date/Time: Dec 11, 2021 07:42 AM Reporting Lab: [facility] [address] [facility] [address] Performing Lab: [facility] [address] [facility] [address] UREA NITROGEN 12 7-25 SODIUM 136 135-145 [...] Reporting Lab: [facility] [address] [facility] [address] Performing Lab: [facility] [address] [facility] [address] WBC 5.6 4.5-11.0 RBC 4.28 4.23-5.66 HGB [...] [facility]3] Comment: Tests performed on VisualXcript (405) SN:[id number] Ordering Provid er: ISATU TODD Report Released Date/Time: Dec 11, 2021 07:42 AM Reporting Lab: [facility] [address] [facility] [address] Performing Lab: [facility] [address] [facility] [address] UREA NITROGEN 11 7-25 SODIUM 139 135-145 [...] AM Reporting Lab: [facility] [address] [facility] [address] Performing Lab: [facility] [address] [facility] [address] WBC 5.5 4.5-11.0 RBC 4.37 4.23-5.66 HGB [...] 0.00 0-0 Dec 12, 2021 06:00 AM Invi[facility] MAGNESIUM Sp ecimen Type: PLASMA Comment: Testin g Performed on VisualXcript (405) SN:[id number] Ordering Provid er: ISATU TODD Report Released Date/Time: Dec 12, 2021 08:24 AM Reporting Lab: [place] [facility] [employer] [address] [facility] [address] Performing Lab: [facility] [place] [facility] [employer] [address] [facility] [address] MAGNESIUM 1.8 1.6-2.6 Dec 12, 2021 06:00 AM In[facility]T [facility] PHOSPHORUS Sp ecimen Type: PLASMA Comment: Testin g Performed on VisualXcript (405) SN:[id number] Ordering Provid er: ISATU TODD Report Released Date/Time: Dec 12, 2021 08:24 AM Reporting Lab: [place] [employer] [facility] [address] [facility] [address] Performing Lab: [place] [employer] [facility] [address] [facility] [address] PHOSPHORUS 3.1 2.5-5.0 Dec 11, 2021 06:15 AM [employer] [place] [employer] [facility] ELECTROLYTES Sp ecimen Type: PLASMA Comment: Tests performed on VisualXcript (405) SN:[id number] Ordering Provid er: ISATU TODD Report Released Date/Time: Dec 10, 2021 07:22 AM Reporting Lab: [place] [facility] [employer] [address] [facility] [address] Performing Lab: [place] [facility] [employer] [address] [facility] [address] SODIUM 137 135-145 POTASSIUM 4.3 3.5-5.0 CHLORIDE 108 100-110 CARBON DIOXIDE 20 20-30 ANION GAP 9 4-16 Dec 11, 2021 06:15 AM WHITE PomogatelT [facility] CBC PROFILE Sp ecimen Type: BLOOD Comment: Result s checked Ordering Provid er: ISATU TODD Report Released Date/Time: Dec 10, 2021 07:22 AM Reporting Lab: [place] OMEGAT [facility] [address] [facility] [address] Performing Lab: CAREY [place] OMEGAT [facility] [address] [facility] [address] WBC 5.8 4.5-11.0 RBC 4.37 4.23-5.66 HGB [...] ecimen Type: PLASMA Comment: Tests performed on VisualXcript (799) SN:[id number] Results checked Ordering Provid er: ISATU TODD Report Released Date/Time: Dec 11, 2021 07:44 AM Reporting Lab: [facility]FF[place] [facility] [address] [facility] [address] Performing Lab: [place] OMEGAT NCMROC [address] [facility] [address] PHOSPHORUS 3.0 2.5-5.0 Dec 10, 2021 08:05 AM [place] [facility] MAGNESIUM Sp ecimen Type: PLASMA Comment: [place] [id number] on Dec 10, 2021@08:31 Tests performed on VisualXcript (405) SN:[id number] Ordering Provid er: ISATU TODD Report Released Date/Time: Dec 10, 2021 07:22 AM Reporting Lab: [place] [facility] [address] [place] [facility] [place] [place] [address] Performing Lab: [place] [facility] [address] [place] [facility] [place] [place] [address] MAGNESIUM 1.7 1.6-2.6 Dec 10, 2021 08:05 AM [place] [facility] PHOSPHORUS Sp ecimen Type: PLASMA Comment: [place] [id number] on Dec 10, 2021@08:31 Tests performed on VisualXcript (405) SN:[id number] Ordering Provid er: ISATU TODD Report Released Date/Time: Dec 10, 2021 07:22 AM Reporting Lab: [place] [facility] [address] [place] [facility] [place] [facility] [place] [address] Performing Lab: [place] [facility] [address] [place] [facility] [place] [place] [address] PHOSPHORUS 1.8 L 2.5-5.0 Dec 10, 2021 08:05 AM [place] UREA NITROGEN Specimen Type: PLASMA [facility] Comment: [place] [id number] on Dec 10, 2021@08:31 Tests performed on VisualXcript (405) SN:[id number] Ordering Provid er: ISATU TODD Report Released Date/Time: Dec 10, 2021 07:22 AM Reporting Lab: [place] [facility] [address] [place] [facility] [place] [place] [address] Performing Lab: [place] [facility] [address] [place] [facility] [place] [place] [address] UREA NITROGEN 8 7-25 Dec 10, 2021 08:05 AM [place] [facility] GLUCOSE Sp ecimen Type: PLASMA Comment: [place] [id number] on Dec 10, 2021@08:31 Tests performed on VisualXcript (405) SN:[id number] Ordering Provid er: ISATU TODD Report Released Date/Time: Dec 10, 2021 07:22 AM Reporting Lab: [place] [facility] [address] [facility] [address] Performing Lab: [place] [facility] [address] [facility] [address] GLUCOSE 144 H 65-100 Dec 10, 2021 08:05 AM [place] [facility] CALCIUM Sp ecimen Type: PLASMA Comment: [place] [id number] on Dec 10, 2021@08:31 Tests performed on Pham Learn It Live (405) SN:[id number] Ordering Provid er: ISATU TODD Report Released Date/Time: Dec 10, 2021 07:22 AM Reporting Lab: [place] [facility] [address] [facility] [address] Performing Lab: [place] [facility] [address] [facility] [address] CALCIUM 8.3 L 8.5-10.5 Dec 10, 2021 08:05 [place] CREATININE WITH eGFR Specime n Type: PLASMA AM [facility] PANEL Comment: [place] [id number] on Dec 10, 2021@08:31 Tests performed on Pham Learn It Live (405) SN:[id number] Ordering Provid er: ISATU TODD Report Released Date/Time: Dec 10, 2021 07:22 AM Reporting Lab: [place] [facility] [address] [facility] [address] Performing Lab: [place] [facility] [address] [facility] [address] CREATININE 0.78 0.5-1.5 eGFR(CKD-EPI 2020) >90.0 >60 Dec 10, 2021 08:05 AM [place] [facility] ELECTROLYTES Sp ecimen Type: PLASMA Comment: [place] [id number] on Dec 10, 2021@08:31 Tests performed on Pham Learn It Live (405) SN:[id number] Ordering Provid er: ISATU TODD Report Released Date/Time: Dec 10, 2021 07:22 AM Reporting Lab: [place] [facility] [address] [facility] [address] Performing Lab: [place] [facility] [address] [facility] [address] SODIUM 139 135-145 POTASSIUM 3.7 3.5-5.0 CHLORIDE 107 100-110 CARBON DIOXIDE 24 20-30 ANION GAP 8 4-16 Dec 10, 2021 08:05 AM [facility] CBC PROFILE Sp ecimen Type: BLOOD No comment enter ed. Ordering Provid er: ISATU TODD Report Released Date/Time: Dec 10, 2021 07:22 AM Reporting Lab: [place] OMEGAT [facility] [address] [facility] [address] Performing Lab: [place] OMEGAT [facility] [address] [facility] [address] WBC 7.0 4.5-11.0 RBC 4.54 4.23-5.66 HGB [...] ecimen Type: PLASMA Comment: Tests performed on VisualXcript (914) SN:[id number] Ordering Provid er: ISATU TODD Report Released Date/Time: Dec 08, 2021 10:23 AM Reporting Lab: [facility] [address] [facility] [address] Performing Lab: [facility] [address] [facility] [address] MAGNESIUM 1.6 1.6-2.6 Dec 09, 2021 [facility] P4 GLU,BUN,CREAT,LYTES,CA Speci men Type: PLASMA 06:46 AM [facility]3] Comment: Tests performed on VisualXcript (405) SN:[id number] Ordering Provid er: ISATU TODD Report Released Date/Time: Dec 08, 2021 05:00 PM Reporting Lab: [facility] [address] [facility] [address] Performing Lab: [facility] [address] [facility] [address] UREA NITROGEN 6 L 7-25 SODIUM 134 [...] Reporting Lab: [facility] [address] [facility] [address] Performing Lab: [facility] [address] [facility] [address] WBC 7.1 4.5-11.0 RBC 4.40 4.23-5.66 HGB [...] 0.00 0-0 Dec 08, 2021 06:39 AM [place] Factyle T [facility] MAGNESIUM Sp ecimen Type: PLASMA Comment: Testin g Performed on VisualXcript (405) SN:[id number] Ordering Provid er: ISATU TODD Report Released Date/Time: Dec 07, 2021 10:32 AM Reporting Lab: [facility] [address] [facility] [address] Performing Lab: [facility] [address] [facility] [address] MAGNESIUM 1.5 L 1.6-2.6 Dec 08, 2021 [place] Factyle T P4 GLU,BUN,CREAT,LYTES,CA Speci men Type: PLASMA 06:39 AM [facility] Comment: Testin g Performed on VisualXcript (405) SN:[id number] Ordering Provid er: ISATU TODD Report Released Date/Time: Dec 07, 2021 10:32 AM Reporting Lab: [facility]' T [facility] [address] [facility] [address] Performing Lab: [facility] [address] [facility] [address] UREA NITROGEN 6 L 7-25 SODIUM 136 135-145 POTASSIUM 3.3 L 3.5-5.0 CHLORIDE 104 100-110 CARBON DIOXIDE 22 20-30 ANION GAP 10 4-16 GLUCOSE 133 H 65-100 CREATININE 0.76 0.5-1.5 CALCIUM 8.4 L 8.5-10.5 eGFR(CKD-EPI 2020) >90.0 >60 Dec 08, 2021 06:39 AM WHITE Factyle T [facility] CBC PROFILE Sp ecimen Type: BLOOD No comment enter ed. Ordering Provid er: ISATU TODD Report Released Date/Time: Dec 07, 2021 10:32 AM Reporting Lab: [facility] [address] [facility] [address] Performing Lab: [facility] [address] [facility] [address] WBC 8.4 4.5-11.0 RBC 4.75 4.23-5.66 HGB [...] ABSOLUTE NRBC 0.00 0-0 Dec 07, 2021 [facility] P4 GLU,BUN,CREAT,LYTES,CA Speci men Type: PLASMA 06:42 AM [facility]3] Comment: Tests performed on VisualXcript (405 SN:[id number] Ordering Provid er: PORFIRIO WALTERS Report Released Date/Time: Dec 06, 2021 06:57 PM Reporting Lab: [facility] [address] [facility] [address] Performing Lab: [facility] [address] [facility] [address] UREA NITROGEN 9 7-25 SODIUM 135 135-145 POTASSIUM 3.5 3.5-5.0 CHLORIDE 103 100-110 CARBON DIOXIDE 22 20-30 ANION GAP 10 4-16 GLUCOSE 92 65-100 CREATININE 0.73 0.5-1.5 CALCIUM 8.0 L 8.5-10.5 eGFR(CKD-EPI 2020) >90.0 >60 Dec 07, 2021 06:42 [place] LIVER PROFILE Specimen Typ e: PLASMA AM [facility] Comment: Tests performed on Migo Software Study Lead (405) SN:[id number] Ordering Provid er: PORFIRIO WALTERS Report Released Date/Time: Dec 06, 2021 06:57 PM Reporting Lab: [facility] [address] [facility] [address] Performing Lab: [facility] [address] [facility] [address] PROTEIN, TOTAL 5.7 L 6.0-8.5 ALBUMIN 2.4 L 3.2-5.0 BILIRUBIN, TOTAL 0.4 0.2-1.2 ALKALINE PHOSPHATASE 109 40-150 ALT(SGPT) 10 7-52 AST(SGOT) 15 5-34 FIB-4 SCORE 1.92 <2.67 Dec 07, 2021 06:42 AM [facility] CBC PROFILE Specimen Type: BLOOD [facility]3] No comment enter ed. Ordering Provid er: PORFIRIO WALTERS Report Released Date/Time: Dec 06, 2021 06:57 PM Reporting Lab: [facility] [address] [facility] [address] Performing Lab: [facility] [address] [facility] [address] WBC 5.7 4.5-11.0 RBC 4.15 L 4.23-5.66 [...] [facility]AM[facility] %) AUTOMATED Comment: Tests performed on VisualXcript (405) SN:[id number] Ordering Provid er: ISATU TODD Report Released Date/Time: Dec 07, 2021 10:28 AM Reporting Lab: [place] [facility] [address] [facility] [address] Performing Lab: [place] [facility] [address] [facility] [address] RETICULOCYTES (%) AUTOMATED 1.23 0. 6-2.0 RETICULOCYTES (ABS) AUTOMATED 0.052 0.030-0.090 Dec 06, 2021 09:45 [place] MRSA SURVL NARES Specimen Ty pe: NARES PM [facility] DNA No comment enter ed. Ordering Provid er: ALVARO VARGHESE Report Released Date/Time: Dec 07, 2021 02:20 AM Reporting Lab: [place] [facility] [address] [facility] [address] Performing Lab: [place] [facility] [address] [facility] [address] MRSA SURVL NARES DNA NEGATIVE NEGATIVE Dec 06, 2021 06:00 [place] URINALYSIS W/REFLEX TO Speci men Type: URINE PM [facility] CULTURE No comment enter ed. Ordering Provid er: JELANI SÁNCHEZ Report Released Date/Time: Dec 06, 2021 11:57 AM Reporting Lab: [place] [facility] [address] [facility] [address] Performing Lab: [place] [facility] [address] [facility] [address] URINE COLOR Arlin YELLOW SPECIFIC GRAVITY 1.029 [...] 21, [place] VARIANT Comment: https://www.cdc.gov/coronavirus/2019-ncov/cases-updates/variant- surveillance/variant-info.html The leaselock SARS CoV 2 [employer] Research Assay-GX is a next-generation sequencing (NGS) assa 2021 [facility] SEQUENCING y that determine s the complete genome sequence of the SARS-CoV-2 virus. The assay contains variant-tolerant primers to broaden and improve the coverage for variant detection and increase the sensitivity 12:00 [facility] PNL(WH) of the panel to enable detection from lower viral titer samples. The assay is run on the [employer] Sequencer, which performs automated library preparation, sequencing, analysis, and reporting. PM The sequence an alysis includes determination of viral phylogenetic lineage by comparison to the reference strain Wuhan-Hu-1, GenBank: [id number]. Sequence determination may not be possible owing [...] Dec 06, 2021 01:13 PM Reporting Lab: [place] [facility] [address] [facility] [address] Performing Lab: [facility] [address] [facility] [address] SARS-CoV-2 CLADE() 22C (OMICRON) SARS-CoV-2 LINEAGE() BA.2.12.1 Dec 06, 2021 12:00 [facility] COVID-19 AG SCREEN Specimen Type: NASAL CAVITY PM [facility] PANEL BINAX(405) Comment: Testi ng Performed By: Mike Briscoe Ordering Provid er: JELANI SÁNCHEZ Report Released Date/Time: Dec 08, 2021 08:23 AM Reporting Lab: [facility] [address] [facility] [address] Performing Lab: [facility] [address] [facility] [address] COVID-19 AG SCRN(wrj BINAX) POSITIVE HH NE G Dec 06, 2021 12:00 PM [facility] BNP(P) Sp ecimen Type: PLASMA Comment: Tests performed on Pham Study Lead (405) SN:[id number] Ordering Provid er: JELANI SÁNCHEZ Report Released Date/Time: Dec 06, 2021 11:57 AM Reporting Lab: [place] [facility] [address] [facility] [address] Performing Lab: [place] [facility] [address] [facility] [address] BNP(P) 224.8 H 10-100 Dec 06, 2021 [place] P4 GLU,BUN,CREAT,LYTES,CA Speci men Type: PLASMA 12:00 PM [facility] Comment: Testin g Performed on Pham Study Lead (405) SN:[id number] Ordering Provid er: JELANI SÁNCHEZ Report Released Date/Time: Dec 06, 2021 11:57 AM Reporting Lab: [place] [facility] [address] [facility] [address] Performing Lab: [place] [facility] [address] [facility] [address] UREA NITROGEN 13 7-25 SODIUM 138 135-145 POTASSIUM 3.8 3.5-5.0 CHLORIDE 103 100-110 CARBON DIOXIDE 23 20-30 ANION GAP 12 4-16 GLUCOSE 105 H 65-100 CREATININE 0.90 0.5-1.5 CALCIUM 8.7 8.5-10.5 eGFR(CKD-EPI 2020) >90.0 >60 Dec 06, 2021 12:00 PM [facility] TROPONIN II Sp ecimen Type: PLASMA Comment: Tests performed on Pham Learn It Live (405) SN:[id number] Ordering Provid er: JELANI SÁNCHEZ Report Released Date/Time: Dec 06, 2021 11:57 AM Reporting Lab: [facility] [address] [facility] [address] Performing Lab: [facility] [address] [facility] [address] TROPONIN II 0.03 0.00-0.29 Dec 06, 2021 12:00 PM [facility] LIVER PROFILE Sp ecimen Type: PLASMA Comment: Testin g Performed on VisualXcript (405) SN:[id number] Ordering Provid er: JELANI SÁNCHEZ Report Released Date/Time: Dec 06, 2021 11:57 AM Reporting Lab: [facility] [address] [facility] [address] Performing Lab: [facility] [address] [facility] [address] PROTEIN, TOTAL 6.6 6.0-8.5 ALBUMIN 2.8 L 3.2-5.0 BILIRUBIN, TOTAL 0.6 0.2-1.2 ALKALINE PHOSPHATASE 134 40-150 ALT(SGPT) 13 7-52 AST(SGOT) 18 5-34 FIB-4 SCORE 1.94 <2.67 Dec 06, 2021 [facility] COVID-19+FLU/RSV DIAGNOSTIC Spe cimen Type: NASOPHARYNX 12:00 PM [facility] PANEL(405) Comment: Tests performed on [employer] Genexpert (405) Critical results called to and read back by: ALESHIA WILKINSON RN 12/06/21 @ 1312 Ordering Provid er: JELANI SÁNCHEZ Report Released Date/Time: Dec 06, 2021 11:57 AM Reporting Lab: [facility] [address] [facility] [address] Performing Lab: [facility] [address] [facility] [address] FLU A(PCR) NEGATIVE NEGATIVE FLU B(PCR) NEGATIVE NEGATIVE RSV(PCR) NEGATIVE NEGATIVE COVID-19([id number]) DETECTED HH NO T DETECTED Dec 06, 2021 12:00 PM [facility] CBC PROFILE Sp ecimen Type: BLOOD No comment enter ed. Ordering Provid er: JELANI SÁNCHEZ Report Released Date/Time: Dec 06, 2021 11:57 AM Reporting Lab: [facility] [address] [facility] [address] Performing Lab: [facility] [address] [facility] [address] WBC 7.2 4.5-11.0 RBC 4.86 4.23-5.66 HGB [...] 2021 07:56 /min mm[Hg] RIVER PM T [facility]3] Dec 11, 3 WHITE 2021 07:49 RIVER PM T [facility]3] Dec 11, 98.3 F 98 127/83 18 /min 97 % 0 WHITE 2021 02:50 /min mm[Hg] RIVER PM T [facility]3] Dec 11, 0 WHITE 2021 01:57 RIVER PM T [facility]3] Dec 11, 0 WHITE 2021 08:49 RIVER AM [facility] Social History: Smoking Status [...] took place. Date/Time Smoking Status/Tobacco Use Comment [facility] Apr 01, 2020 01:16 PM [...] TOBACCO USE IN PAST YEAR CAREY MONTOYA [facility]3] Mar 16, 2016 12:50 PM V1-PT DECLINES [...] W/WO CONTRAST: MARYELLEN LONG LUCAS LARES N [id number] -1950 [facility] Exm Date: DEC 13, 2021@12:57 Req Phys: ISATU TODD Loc: OP Unknown/0 12-15-2021@13:20 Img Loc: MRI IMAGING (OOS) Service: ZGENERAL MEDICINE (Case [id number] COMPLETE) MRI ABDOMEN W/WO CONTRAST (M RI Detailed) CPT:72252 Reason for Study: further characterization of a [...] new lyphadenopathy REQUESTING MD: Isatu Todd PAGER: [phone] PHONE: [phone] Weight: 232.2 lb [105.32 kg] (12/12/2021 05:00) [...] patient will need to arrange for a drivers' cash clerk to take him/her home after the MRI [...] 15, 2021 Date Verified: DEC 15, 2021 Early Intervention Specialist E-Sig:/ES/MARYELLEN LONG Report: MRI ABDOMEN W/WO [...] MALIGNANCY Primary Interpreting Staff: Staff AMELIA THOMAS (Early Intervention Specialist) / Dec 10, 2021 09:[address] ABDOMEN & PELVIS: [facility] LUCAS MEEK N [id number] -1950 M SERVICE [facility]3] Exm Date: DEC 10, 2021@09:30 Req Phys: ISATU TODD Loc: 1S MED/12-10@10:57 Img Loc: CT SCAN (OOS) Service: [facility] MEDICINE (Case 587 COMPLETE) CT ABD & PELVIS WITHOUT CONT RAST (CT Detailed) CPT:61107 Reason for Study: 71 yo male with [...] INDEX - NO HEIGHTS FOUND Pager number: [phone] STAT orders MUST be call ed to RADIOLOGY [phone] to speak to the appropriate mining technician. Report Status: Verified Date Reported: DEC 10, 2021 Date Verified: DEC 10, 2021 Early Intervention Specialist E-Sig: Report: EXAM: CT abdomen and [...] ph nodes. READING PHYSICIAN: Ramone Munoz D.O. -[phone] 12/10/2021 10:55 EDT [facility] National Teleradiology Program [phone] (For Medical Practitioner Use Only ) [address] [facility], [facility] [address] [place] [address] Attention Patients / Veterans: If you have ques tions or concerns about these test results, please contact your o rdering provider or primary care team. Primary Diagnostic Code: SIGNIFICANT ABNORMALIT Y, ATTN NEEDED Primary Interpreting Staff: RADIOLOGY,OUTSIDE SERVICE, Staff Physician / Dec 09, 2021 07:34 AM BASW (MODIFIED): JESSIE CHENEY TARA ER JCT LUCAS MEEK [id number] -1950 M [facility] Exm Date: DEC 09, 2021@07:34 Req Phys: ISATU TODD Yao Manjarrez Loc: 1S MED/12-09@11:26 Img Loc: XRAY (OOS) Service: [facility] MEDICINE (Case 463 COMPLETE) BASW (MODIFIED) (RAD Detaile d) CPT:76870 Contrast Media : Barium Reason for Study: dysphagia ?esophageal spasm Clinical History: Report Status: Verified Date Reported: DEC 09, 2021 Date Verified: DEC 09, 2021 Early Intervention Specialist E-Sig:/ES/JESSIE CHENEY Report: BASW (MODIFIED) , [...] REQUIRED Primary Interpreting Staff: JESSIE CHENEY, RADIOLOGIST (Early Intervention Specialist) /TLC Dec 06, 2021 12:[address] CHEST (INCLUDES ADRENALS): [facility]ESSIE [facility]ENE[facility] [id number] -1950 [facility] Ex[facility] Date: DEC 06, 2021@12:59 Req Phys: GONZALOJELANI Loc: [facility] ED DAYS M 1RD (Req'g Loc) Img Loc: CT SCAN (OOS) Service: Unknown (Case 138 COMPLETE) CT THORAX W/O CONT (CT Detai led) CPT:28799 Reason for Study: Opacification right chest Clinical History: No contrast allergy BUN: 13 (12/06/21 12:00) CREATI: 0.90 (12/06/21 12:00) eGFR 05/16/21 09:43 52 L Weight: 232.6 lb [105.51 kg] (12/06/2021 11:40) BODY MASS INDEX - NO HEIGHTS FOUND Pager number: [phone] STAT orders MUST be called t o RADIOLOGY [phone] to speak to the appropriate mining technician. Indications - Other: Opacification right chest, covid positive, lung cancer histo Report Status: Verified Date Reported: DEC 06, 2021 Date Verified: DEC 06, 2021 Early Intervention Specialist E-Sig:/ES/JESSIE CHENEY Report: CT THORAX W/O [...] REQUIRED Primary Interpreting Staff: JESSIE CHENEY, RADIOLOGIST (Early Intervention Specialist) Primary Interpreting Resident: PRINCE CHAMPION, Resident /BR Dec 06, 2021 11:58 AM CHEST SINGLE VIEW: JESSIE CHENEYT LUCAS MEEK N [id number] -1950 M [facility] Exm Date: DEC 06, 2021@11:58 Req Phys: JELANI SÁNCHEZ Pat Loc: [facility] ED DAYS M 1RD (Req'g Loc) Img Loc: XRAY (OOS) Service: Unknown (Case [id number] COMPLETE) CHEST SINGLE VIEW (RAD Detai led) CPT:23396 Proc Modifiers : PORTABLE EXAM Reason for Study: SOB, home covid test positive Clinical History: Report Status: Verified Date Reported: DEC 06, 2021 Date Verified: DEC 06, 2021 Early Intervention Specialist E-Sig:/ES/JESSIE CHENEY Report: Exam type: Chest [...] REQUIRED Primary Interpreting Staff: JESSIE CHENEY, RADIOLOGIST (Early Intervention Specialist) /TLC Pathology Reports: +/- 30 days [...] [facility] [CLIA# [id number]] [address] [place] [address] - - - - - - [...] automatically d ocumented from SURGERY package case #[id number] Field (#32) PRINCIPAL PRE-OP DIAGNOSIS, (#.72) OTHER [...] automatically d ocumented from SURGERY package case #[id number] Field (#34) PRINCIPAL POST-OP DIAG, (#.74) OTHER [...] Label: Lucas Meek Paperwork: Lucas Meek Cassette: [id number];..;KALYANI;.;405;[phone] Specimen is labeled: ES bx Received in formalin are several pieces of pale boyd and brown tissue, 1.2 x 0.7 cm in aggregate. Submitted entirely in 1 cassette [id number];..;KALYANI;.;405;[id number] SAW 12/15/2021 Microscopic exam: *+* MODIFIED REPORT [...] report in rendering the final pathologic diagnosis. [address] [address] CPT: 36404 /emely/ NIURKA Yeung MD Signed Jan 03, 2022@10:28 Performing Laboratory: Surgical Pathology Report Performed By: [facility] MONTO[facility]] [CLIA# [id number]] [address] [place] [address] $FTR - - - - - [...] - - LUCAS MEEK STANDARD FORM 515 ID:[id number] SEX:M :1950 AGE: 71 LOC: SDM END [...] $APHDR Reporting Lab: [facility] [CLIA# [id number]] [address] [place] [address] - - - - - - [...] automatically d ocumented from SURGERY package case #[id number] Field (#32) PRINCIPAL PRE-OP DIAGNOSIS, (#.72) OTHER [...] automatically d ocumented from SURGERY package case #[id number] Field (#34) PRINCIPAL POST-OP DIAG, (#.74) OTHER [...] Label: Lucas Meek Paperwork: Lucas Meek Cassette: [id number];..;KALYANI;.;405;[phone] Specimen is labeled: ES bx Received in formalin are several pieces of pale boyd and brown tissue, 1.2 x 0.7 cm in aggregate. Submitted entirely in 1 cassette [id number];..;KALYANI;.;405;[id number] SAW 12/15/2021 Microscopic exam: DIAGNOSIS: A. 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 Kendell long. TIARA Coombs was notified on 12/21/21. The attending pathologist who signature mansoor ears on this report has reviewed all diagnostic slides and has edited t he gross and/or microscopic portion of this report in rendering the final pathologic diagnosis. [address] [address] CPT: 18013 /emely/ NIURKA Yeung MD Signed Dec 21, 2021@11:46 Performing Laboratory: Surgical Pathology Report Performed By: [facility] [CLIA# [id number]] [address] [place] [address] $FTR - - - - - [...] - - LUCAS MEEK STANDARD FORM 515 ID:[id number] SEX:M :1950 AGE: 71 LOC: [facility] PCP: Isatu Todd /charmaine Yeung MD Signed: 12/21/2021 11:46 Dec 06, 2021 03:30 PM LR MICROBIOLOGY REPORT: [facility] Reporting Lab: [facility] [CLIA# [id number]] [address] [place] [address] Accession [UID]: [id number] [[id number]] Receiv ed: Dec 06, 2021@16:14 Collection sample: BLOOD CUL T BOTTLE(NIRMAL/AERO)Collection date: Dec 06, 2021 15:30 Site/Specimen: BLOOD Provider: JELANI SÁNCHEZ Comment on specimen: LAC Test(s) ordered: BLOOD CULTURE ANAEROBI C....... completed: Dec 12, 2021 06:18 * BACTERIOLOGY FINAL REPORT => Dec 12, 2021 06:1 8 TECH CODE: [id number] Bacteriology Remark(s): NO GROWTH IN 5 DAYS =--=--=--=--=--=--=--=--=--=--=--=--=--= --=--=--=--=--=--=--=--=--=--=--=--=-- Performing Laboratory: Bacteriology Report Performed By: [facility] [CLIA# [id number]] [address] [place] [address] Dec 06, 2021 03:30 PM LR MICROBIOLOGY REPORT: [facility] Reporting Lab: [facility] [CLIA# [id number]] [address] [place] [address] Accession [UID]: [id number] [[id number]] Receiv ed: Dec 06, 2021@16:14 Collection sample: BLOOD CUL T BOTTLE(NIRMAL/AERO)Collection date: Dec 06, 2021 15:30 Site/Specimen: BLOOD Provider: JELANI SÁNCHEZ Comment on specimen: LAC Test(s) ordered: BLOOD CULTURE AEROBIC. ........ completed: Dec 12, 2021 06:17 * BACTERIOLOGY FINAL REPORT => Dec 12, 2021 06:1 7 TECH CODE: [id number] Bacteriology Remark(s): NO GROWTH IN 5 DAYS =--=--=--=--=--=--=--=--=--=--=--=--=--= --=--=--=--=--=--=--=--=--=--=--=--=-- Performing Laboratory: Bacteriology Report Performed By: [facility] [CLIA# [id number]] [address] [place] [address]
--- OUTSIDE RECORDS SUMMARY | 2022-01-19 09:14 | XMS_ITS ---
DAILY HOSPITALIZATION DATA [facility] Encounter Summary Created on:December 11, 2021 Patient:LUCAS MEEK Sex:Male :1950 Author Organization [facility] Address [address] [place] [id number] Support Name Relationship Address Phone YUSRA MEEK Unavailable [address] [place] [address] YUSRA MEEK Unavailable [address] [place] [facility] [place] [address] CLAY MOSLEY Unavailable Unavailable SJ SANTACRUZ Unavailable [...] MEDICARE MEDICARE PART Jun 18, PART A [id number] DO KALYANI PATIENT (WNR) (M) A 2016 13A 1 UGLAS MEDICARE MEDICARE PART Jun 18, PART A [id number] DO KALYANI PATIENT (WNR) (M) A 2017 VH81 2 LAS MEDICARE MEDICARE PART Jun 18, PART B [id number] DO KALYANI PATIENT (WNR) (M) B 2016 13A 1 U[place]AS MEDICARE MEDICARE PART Jun 18, PART B [id number] DO KALYANI PATIENT (WNR) (M) B 2017 VH81 2 UGLAS UNITED MEDICARE MCR(Jun 18 [id number] Luz MEEK PATIENT HEALTHCARE ADVANTAGE NR) 2021 37 0 [facility] (WNR) Selected Encounter This section includes the information on record at [place] for the Encounter. Date/Time Encounter Type Encounter Description Reason Provider Source Dec 11, 2021 05:47 Inpatient Visit DAILY HOSPITALIZATION DATA PM IHE [...] AM AMBULATORY - NONE [place] [facility] Jan 06, 2022 02:00 PM [place] [facility] Jan 10, 2022 11:30 AM AMBULATORY - MEDICINE [facility] Jan 24, 2022 08:00 [place] [facility] Feb 21, 2022 10:00 AM AMBUL[place]ORY - [place] [facility] Mar 21, 2022 10:30 [...] The data comes from all [place] treatment [facility]. Test Date/Time Test Type Test Details Facility Name October 31, 2021 07:37 AM Consult Order COMMUNITY CARE-EGD [facility] Cons Director Of Search Engine Marketing's Choice November 15, 2021 10:37 AM Consult Order [facility] CARE-PODIATRY Cons Director Of [employer] Engine [employer]'s Choice Dec 06, 2021 12:52 PM [...] [place] OUTPATIENT Cons [facility] Director Of Search Engine Marketing's Choice Jan 15, 2022 10:08 PM Consult Order [facility] CARE-PALLIATIVE CARE Cons Director Of Search [employer] Marketing's Choice Lab Results: +/- 30 days [...] Reference Range Comment Dec 15, 2021 [place] P4 GLU,BUN,CREAT,LYTES,CA Speci men Type: PLASMA 06:43 AM [facility] Comment: Tests performed on [employer] (405) SN:[id number] Ordering Provid er: ISATU TODD Report Released Date/Time: Dec 11, 2021 07:42 AM Reporting Lab: [facility] T [facility] [address] [facility] [address] Performing Lab: [facility] [address] [facility] [address] UREA NITROGEN 9 7-25 SODIUM 137 135-145 POTASSIUM 3.8 3.5-5.0 CHLORIDE 105 100-110 CARBON DIOXIDE 26 20-30 ANION GAP 6 4-16 GLUCOSE 102 H 65-100 CREATININE 0.64 0.5-1.5 CALCIUM 8.1 L 8.5-10.5 eGFR(CKD-EPI 2020) >90.0 >60 Dec 15, 2021 06:43 AM [facility]IV[facility] CBC PROFILE Sp ecimen Type: BLOOD No comment enter ed. Ordering Provid er: ISATU TODD Report Released Date/Time: Dec 10, 2021 07:22 AM Reporting Lab: [facility] [address] [facility] [address] Performing Lab: [facility] [address] [facility] [address] WBC 5.7 4.5-11.0 RBC 4.22 L 4.23-5.66 [...] ABSOLUTE NRBC 0.00 0-0 Dec 14, 2021 [facility] CYTOGENETIC Specimen Type: ESOPHAGUS 02:59 PM VA[facility] FISH([facility] Comment: ~For T est: CYTOGENETIC FISH([facility]) ~FISH HER 2 NUE, FFPE See full report in Enkia Image display viewer/tab#LAB-Reference Ordering Provid er: NIURKA MILLER Report Released Date/Time: Dec 21, 2021 12:11 PM Reporting Lab: [facility] [address] [facility] [address] Performing Lab: [facility] CYTOGENETIC FISH([facility] comment Dec 14, 2021 [facility] P4 GLU,BUN,CREAT,LYTES,CA Speci men Type: PLASMA 06:27 AM [facility] Comment: Tests performed on [employer] (405) SN:[id number] Ordering Provid er: ISATU TODD Report Released Date/Time: Dec 11, 2021 07:42 AM Reporting Lab: [facility] [address] [facility] [address] Performing Lab: [facility] [address] [facility] [address] UREA NITROGEN 10 7-25 SODIUM 137 135-145 POTASSIUM 4.0 3.5-5.0 CHLORIDE 104 100-110 CARBON DIOXIDE 25 20-30 ANION GAP 8 4-16 GLUCOSE 99 65-100 CREATININE 0.67 0.5-1.5 CALCIUM 8.2 L 8.5-10.5 eGFR(CKD-EPI 2020) >90.0 >60 Dec 14, 2021 06:[address] [facility] ecimen Type: BLOOD No comment enter ed. Ordering Provid er: ISATU TODD Report Released Date/Time: Dec 10, 2021 07:22 AM Reporting Lab: [facility] [address] [facility] [address] Performing Lab: [facility] [address] [facility] [address] WBC 6.0 4.5-11.0 RBC 4.29 4.23-5.66 HGB [...] 0.00 0-0 Dec 13, 2021 06:34 AM [facility] CBC PROFILE Sp ecimen Type: BLOOD No comment enter ed. Ordering Provid er: ISATU TODD Report Released Date/Time: Dec 10, 2021 07:22 AM Reporting Lab: [facility] [address] [facility] [address] Performing Lab: [facility] [address] [facility] [address] WBC 5.6 4.5-11.0 RBC 4.28 4.23-5.66 HGB [...] ABSOLUTE NRBC 0.00 0-0 Dec 13, 2021 [facility] P4 GLU,BUN,CREAT,LYTES,CA Speci men Type: PLASMA 06:34 AM [facility] Comment: Tests performed on [employer] (405) SN:[id number] Ordering Provid er: ISATU TODD Report Released Date/Time: Dec 11, 2021 07:42 AM Reporting Lab: [facility] [address] [facility] [address] Performing Lab: [facility] [address] [facility] [address] UREA NITROGEN 12 7-25 SODIUM 136 135-145 POTASSIUM 3.9 3.5-5.0 CHLORIDE 105 100-110 CARBON DIOXIDE 24 20-30 ANION GAP 7 4-16 GLUCOSE 102 H 65-100 CREATININE 0.66 0.5-1.5 CALCIUM 8.3 L 8.5-10.5 eGFR(CKD-EPI 2020) >90.0 >60 Dec 12, 2021 [facility] P[facility] GLU,BUN,CREAT,LYTES,CA Speci men Type: PLASMA 06:21 AM [facility] Comment: Tests performed on [employer] (405) SN:[id number] Ordering Provid er: ISATU TODD Report Released Date/Time: Dec 11, 2021 07:42 AM Reporting Lab: [facility] [address] [facility] [address] Performing Lab: [facility] [address] [facility] [address] UREA NITROGEN 11 7-25 SODIUM 139 135-145 POTASSIUM 4.1 3.5-5.0 CHLORIDE 107 100-110 CARBON DIOXIDE 24 20-30 ANION GAP 8 4-16 GLUCOSE 110 H 65-100 CREATININE 0.70 0.5-1.5 CALCIUM 8.3 L 8.5-10.5 eGFR(CKD-EPI 2020) >90.0 >60 Dec 12, 2021 06:21 AM [facility] CBC PROFILE Sp ecimen Type: BLOOD No comment enter ed. Ordering Provid er: ISATU TODD Report Released Date/Time: Dec 10, 2021 07:22 AM Reporting Lab: [facility] [address] [facility] [address] Performing Lab: [facility] [address] [facility] [address] WBC 5.5 4.5-11.0 RBC 4.37 4.23-5.66 HGB [...] 0.00 0-0 Dec 12, 2021 06:00 AM [email or web address] MAGNESIUM Sp ecimen Type: PLASMA Comment: Testin g Performed on [employer] (405) SN:[id number] Ordering Provid er: ISATU TODD Report Released Date/Time: Dec 12, 2021 08:24 AM Reporting Lab: [place] [facility] Care[facility] [address] [facility] [address] Performing Lab: [employer] [place] [facility]T [facility] [address] [facility] [address] MAGNESIUM 1.8 1.6-2.6 Dec 12, 2021 06:00 AM [email or web address] PHOSPHORUS Sp ecimen Type: PLASMA Comment: Testin g Performed on [employer] (405) SN:[id number] Ordering Provid er: ISATU TODD Report Released Date/Time: Dec 12, 2021 08:24 AM Reporting Lab: [place] [facility]T [facility] [address] [facility] [address] Performing Lab: [place] [facility] [address] [facility] [address] PHOSPHORUS 3.1 2.5-5.0 Dec 11, 2021 06:15 AM [employer] [place] [facility]T [facility] ELECTROLYTES Sp ecimen Type: PLASMA Comment: Tests performed on [employer] (405) SN:[id number] Ordering Provid er: ISATU TODD Report Released Date/Time: Dec 10, 2021 07:22 AM Reporting Lab: [place] [facility] [address] [facility] [address] Performing Lab: [place] [facility] [address] [facility] [address] SODIUM 137 135-145 POTASSIUM 4.3 3.5-5.0 CHLORIDE 108 100-110 CARBON DIOXIDE 20 20-30 ANION GAP 9 4-16 Dec 11, 2021 06:15 AM [place] [email or web address]T [facility] CBC PROFILE Sp ecimen Type: BLOOD Comment: Result s checked Ordering Provid er: ISATU TODD Report Released Date/Time: Dec 10, 2021 07:22 AM Reporting Lab: [place] OMEGAT [facility] [address] [facility] [address] Performing Lab: [place] OMEGAT [facility] [address] [facility] [address] WBC 5.8 4.5-11.0 RBC 4.37 4.23-5.66 HGB [...] 0.00 0-0 Dec 11, 2021 06:00 AM [facility] PHOSPHORUS Sp ecimen Type: PLASMA Comment: Tests performed on [employer] (249) SN:[id number] Results checked Ordering Provid er: ISATU TODD Report Released Date/Time: Dec 11, 2021 07:44 AM Reporting Lab: [facility] [place] [facility] [address] [facility] [address] Performing Lab: [place] OMEGAT PRMROC [address] [facility] [address] PHOSPHORUS 3.0 2.5-5.0 Dec 10, 2021 08:05 AM [place] [facility] PHOSPHORUS Sp ecimen Type: PLASMA Comment: [place] [id number] on Dec 10, 2021@08:31 Tests performed on [employer] (405) SN:[id number] Ordering Provid er: ISATU TODD Report Released Date/Time: Dec 10, 2021 07:22 AM Reporting Lab: [place] [facility] [address] [facility] [address] Performing Lab: [place] [facility] [address] [place] [facility] [place] [address] PHOSPHORUS 1.8 L 2.5-5.0 Dec 10, 2021 08:05 AM [place] UREA NITROGEN Specimen Type: PLASMA [facility] Comment: [place] [id number] on Dec 10, 2021@08:31 Tests performed on [employer] (405) SN:[id number] Ordering Provid er: ISATU TODD Report Released Date/Time: Dec 10, 2021 07:22 AM Reporting Lab: [place] [facility] [address] [place] [facility] [place] [address] Performing Lab: [place] [facility] [address] [place] [facility] [place] [address] UREA NITROGEN 8 7-25 Dec 10, 2021 08:05 AM [place] [facility] MAGNESIUM Sp ecimen Type: PLASMA Comment: Added by Ligia on Dec 10, 2021@08:31 Tests performed on [employer] (405) SN:[id number] Ordering Provid er: ISATU TODD Report Released Date/Time: Dec 10, 2021 07:22 AM Reporting Lab: [place] [facility] [address] [place] [facility] [place] [address] Performing Lab: [place] [facility] [address] [place] [facility] [place] [address] MAGNESIUM 1.7 1.6-2.6 Dec 10, 2021 08:05 AM [place] [facility] GLUCOSE Sp ecimen Type: PLASMA Comment: [place] [id number] on Dec 10, 2021@08:31 Tests performed on [employer] (405) SN:[id number] Ordering Provid er: ISATU TODD Report Released Date/Time: Dec 10, 2021 07:22 AM Reporting Lab: [place] [facility] [address] [facility] [address] Performing Lab: [place] [facility] [address] [facility] [address] GLUCOSE 144 H 65-100 Dec 10, 2021 08:05 AM [place] [facility] CALCIUM Sp ecimen Type: PLASMA Comment: [place] [id number] on Dec 10, 2021@08:31 Tests performed on [employer] (405) SN:[id number] Ordering Provid er: ISATU TODD Report Released Date/Time: Dec 10, 2021 07:22 AM Reporting Lab: [place] [facility] [address] [facility] [address] Performing Lab: [place] [facility] [address] [facility] [address] CALCIUM 8.3 L 8.5-10.5 Dec 10, 2021 08:05 AM [place] [facility] ELECTROLYTES Sp ecimen Type: PLASMA Comment: [place] [id number] on Dec 10, 2021@08:31 Tests performed on [employer] (405) SN:[id number] Ordering Provid er: ISATU TODD Report Released Date/Time: Dec 10, 2021 07:22 AM Reporting Lab: [place] [facility] [address] [facility] [address] Performing Lab: [place] [facility] [address] [facility] [address] SODIUM 139 135-145 POTASSIUM 3.7 3.5-5.0 CHLORIDE 107 100-110 CARBON DIOXIDE 24 20-30 ANION GAP 8 4-16 Dec 10, 2021 08:05 [place] CREATININE WITH eGFR Specime n Type: PLASMA AM [facility] PANEL Comment: [place] [id number] on Dec 10, 2021@08:31 Tests performed on [employer] (405) SN:[id number] Ordering Provid er: ISATU TODD Report Released Date/Time: Dec 10, 2021 07:22 AM Reporting Lab: [place] [facility] [address] [facility] [address] Performing Lab: [place] [facility] [address] [facility] [address] CREATININE 0.78 0.5-1.5 eGFR(CKD-EPI 2020) >90.0 >60 Dec 10, 2021 08:05 AM [facility] CBC PROFILE Sp ecimen Type: BLOOD No comment enter ed. Ordering Provid er: ISATU TODD Report Released Date/Time: Dec 10, 2021 07:22 AM Reporting Lab: [place] OMEGAT [facility] [address] [facility] [address] Performing Lab: [place] OMEGAT [facility] [address] [facility] [address] WBC 7.0 4.5-11.0 RBC 4.54 4.23-5.66 HGB [...] 0.00 0-0 Dec 09, 2021 06:46 AM [facility] MAGNESIUM Sp ecimen Type: PLASMA Comment: Tests performed on [employer] (674) SN:[id number] Ordering Provid er: ISATU TODD Report Released Date/Time: Dec 08, 2021 10:23 AM Reporting Lab: [facility] [address] [facility] [address] Performing Lab: [facility] [address] [facility] [address] MAGNESIUM 1.6 1.6-2.6 Dec 09, 2021 [facility] P4 GLU,BUN,CREAT,LYTES,CA Speci men Type: PLASMA 06:46 AM [facility] Comment: Tests performed on [employer] (405) SN:[id number] Ordering Provid er: ISATU TODD Report Released Date/Time: Dec 08, 2021 05:00 PM Reporting Lab: [facility] [address] [facility] [address] Performing Lab: [facility] [address] [facility] [address] UREA NITROGEN 6 L 7-25 SODIUM 134 [...] Lab: [facility] [address] [facility] [address] Performing Lab: [facility] [address] [facility] [address] WBC 7.1 4.5-11.0 RBC 4.40 4.23-5.66 HGB [...] 0.00 0-0 Dec 08, 2021 06:39 AM [place] [facility] [employer] T [facility] MAGNESIUM Sp ecimen Type: PLASMA Comment: Testin g Performed on [employer] (405) SN:[id number] Ordering Provid er: ISATU TODD Report Released Date/Time: Dec 07, 2021 10:32 AM Reporting Lab: [facility] [address] [facility] [address] Performing Lab: [facility] [address] [facility] [address] MAGNESIUM 1.5 L 1.6-2.6 Dec 08, 2021 [place] [facility] [employer] T P4 GLU,BUN,CREAT,LYTES,CA Speci men Type: PLASMA 06:39 AM [facility]OC Comment: Testin g Performed on [employer] (405) SN:[id number] Ordering Provid er: ISATU TODD Report Released Date/Time: Dec 07, 2021 10:32 AM Reporting Lab: [employer] T [facility] [address] [facility] [address] Performing Lab: [facility] [address] [facility] [address] UREA NITROGEN 6 L 7-25 SODIUM 136 135-145 POTASSIUM 3.3 L 3.5-5.0 CHLORIDE 104 100-110 CARBON DIOXIDE 22 20-30 ANION GAP 10 4-16 GLUCOSE 133 H 65-100 CREATININE 0.76 0.5-1.5 CALCIUM 8.4 L 8.5-10.5 eGFR(CKD-EPI 2020) >90.0 >60 Dec 08, 2021 06:39 AM [place] [facility] T [facility] CBC PROFILE Sp ecimen Type: BLOOD No comment enter ed. Ordering Provid er: ISATU TODD Report Released Date/Time: Dec 07, 2021 10:32 AM Reporting Lab: [facility] [address] [facility] [address] Performing Lab: [facility] [address] [facility] [address] WBC 8.4 4.5-11.0 RBC 4.75 4.23-5.66 HGB [...] ABSOLUTE NRBC 0.00 0-0 Dec 07, 2021 [facility] P4 GLU,BUN,CREAT,LYTES,CA Speci men Type: PLASMA 06:42 AM [facility] Comment: Tests performed on [employer] (405 SN:[id number] Ordering Provid er: PORFIRIO WALTERS Report Released Date/Time: Dec 06, 2021 06:57 PM Reporting Lab: [facility] [address] [facility] [address] Performing Lab: [facility] [address] [facility] [address] UREA NITROGEN 9 7-25 SODIUM 135 135-145 POTASSIUM 3.5 3.5-5.0 CHLORIDE 103 100-110 CARBON DIOXIDE 22 20-30 ANION GAP 10 4-16 GLUCOSE 92 65-100 CREATININE 0.73 0.5-1.5 CALCIUM 8.0 L 8.5-10.5 eGFR(CKD-EPI 2020) >90.0 >60 Dec 07, 2021 06:42 [place] LIVER PROFILE Specimen Typ e: PLASMA AM VAOC Comment: Tests performed on [employer] [facility] Administrator (405) SN:[id number] Ordering Provid er: PORFIRIO WALTERS Report Released Date/Time: Dec 06, 2021 06:57 PM Reporting Lab: [facility] [address] [facility] [address] Performing Lab: [facility] [address] [facility] [address] PROTEIN, TOTAL 5.7 L 6.0-8.5 ALBUMIN 2.4 L 3.2-5.0 BILIRUBIN, TOTAL 0.4 0.2-1.2 ALKALINE PHOSPHATASE 109 40-150 ALT(SGPT) 10 7-52 AST(SGOT) 15 5-34 FIB-4 SCORE 1.92 <2.67 Dec 07, 2021 06:42 AM [facility] CBC PROFILE Specimen Type: BLOOD [facility] No comment enter ed. Ordering Provid er: PORFIRIO WALTERS Report Released Date/Time: Dec 06, 2021 06:57 PM Reporting Lab: [facility] [address] [facility] [address] Performing Lab: [facility] [address] [facility] [address] WBC 5.7 4.5-11.0 RBC 4.15 L 4.23-5.66 [...] VAMROC %) AUTOMATED Comment: Tests performed on [employer] (405) SN:[id number] Ordering Provid er: ISATU TODD Report Released Date/Time: Dec 07, 2021 10:28 AM Reporting Lab: [place] [facility] [address] [facility] [address] Performing Lab: [place] [facility] [address] [facility] [address] RETICULOCYTES (%) AUTOMATED 1.23 0. 6-2.0 RETICULOCYTES (ABS) AUTOMATED 0.052 0.030-0.090 Dec 06, 2021 09:45 [place] MRSA SURVL NARES Specimen Ty pe: NARES PM [facility] DNA No comment enter ed. Ordering Provid er: ALVARO VARGHESE Report Released Date/Time: Dec 07, 2021 02:20 AM Reporting Lab: [place] [facility] [address] [facility] [address] Performing Lab: [place] [facility] [address] [facility] [address] MRSA SURVL NARES DNA NEGATIVE NEGATIVE Dec 06, 2021 06:00 [place] URINALYSIS W/REFLEX TO Speci men Type: URINE PM [facility] CULTURE No comment enter ed. Ordering Provid er: JELANI SÁNCHEZ Report Released Date/Time: Dec 06, 2021 11:57 AM Reporting Lab: [place] [facility] [address] [facility] [address] Performing Lab: [place] [facility] [address] [facility] [address] URINE COLOR Arlin YELLOW SPECIFIC GRAVITY 1.029 [...] 21, RIVER VARIANT Comment: https://www.cdc.gov/coronavirus/2019-ncov/cases-updates/variant- surveillance/variant-info.html The [address] SARS CoV 2 [employer] Assay-GX is a next-generation sequencing (NGS) assa 2021 [facility] SEQUENCING y that determine s the complete genome sequence of the SARS-CoV-2 virus. The assay contains variant-tolerant primers to broaden and improve the coverage for variant detection and increase the sensitivity 12:00 [facility] PNL(WH) of the panel to enable detection from lower viral titer samples. The assay is run on the [employer] Sequencer, which performs automated library preparation, sequencing, analysis, and reporting. PM The sequence an alysis includes determination of viral phylogenetic lineage by comparison to the reference strain Wuhan-Hu-1, GenBank: [id number]. Sequence determination may not be possible owing [...] Dec 06, 2021 01:13 PM Reporting Lab: [facility] [address] [facility] [address] Performing Lab: [facility] [address] [facility] [address] SARS-CoV-2 CLADE() 22C (OMICRON) SARS-CoV-2 LINEAGE() BA.2.12.1 Dec 06, 2021 12:00 [facility] COVID-19 AG SCREEN Specimen Type: NASAL CAVITY PM [facility] PANEL [employer](405) Comment: Testi ng Performed By: Mike Briscoe Ordering Provid er: JELANI SÁNCHEZ Report Released Date/Time: Dec 08, 2021 08:23 AM Reporting Lab: [facility] [address] [facility] [address] Performing Lab: [facility] [address] [facility] [address] COVID-19 AG SCRN(wrj BINAX) POSITIVE HH NE G Dec 06, 2021 12:00 PM [facility] LIVER PROFILE Sp ecimen Type: PLASMA Comment: Testin g Performed on [facility] ([id number]) [id number] Ordering Provid er: JELANI SÁNCHEZ Report Released Date/Time: Dec 06, 2021 11:57 AM Reporting [facility]: [facility] [address] [facility] [address] Performing Lab: [facility] [address] [facility] [address] PROTEIN, TOTAL 6.6 6.0-8.5 ALBUMIN 2.8 L 3.2-5.0 BILIRUBIN, TOTAL 0.6 0.2-1.2 ALKALINE PHOSPHATASE 134 40-150 ALT(SGPT) 13 7-52 AST(SGOT) 18 5-34 FIB-4 SCORE 1.94 <2.67 Dec 06, 2021 12:00 PM [facility] Sp ecimen Type: PLASMA Comment: Tests performed on [facility] ([id number]) [id number] Ordering Provid er: JELANI SÁNCHEZ Report Released Date/Time: Dec 06, 2021 11:57 AM Reporting Lab: [facility] [address] [facility] [address] Performing Lab: [facility] [address] [facility] [address] TROPONIN II 0.03 0.00-0.29 Dec 06, 2021 [facility] P4 GLU,BUN,CREAT,LYTES,CA Speci men Type: PLASMA 12:00 PM [facility] Comment: Testin g Performed on [facility] ([id number]) SN:[id number] Ordering Provid er: JELANI SÁNCHEZ Report Released Date/Time: Dec 06, 2021 11:57 AM Reporting Lab: [facility] [address] [facility] [address] Performing Lab: [facility] [address] [facility] [address] UREA NITROGEN 13 7-25 SODIUM 138 135-145 POTASSIUM 3.8 3.5-5.0 CHLORIDE 103 100-110 CARBON DIOXIDE 23 20-30 ANION GAP 12 4-16 GLUCOSE 105 H 65-100 CREATININE 0.90 0.5-1.5 CALCIUM 8.7 8.5-10.5 eGFR(CKD-EPI 2020) >90.0 >60 Dec 06, 2021 12:00 PM [facility] Sp ecimen Type: PLASMA Comment: [facility] Administrator (405) SN:[id number] Ordering Provid er: JELANI SÁNCHEZ Report Released Date/Time: Dec 06, 2021 11:57 AM Reporting Lab: [facility] [address] [facility] [address] Performing Lab: [facility] [address] [facility] [address] BNP(P) 224.8 H 10-100 Dec 06, 2021 [facility] [place] COVID-19+FLU/RSV DIAGNOSTIC Spe cimen Type: NASOPHARYNX 12:00 PM [facility] PANEL(405) Comment: Tests performed on Sapientxpert (405) Critical results called to and read back by: ALESHIA WILKINSON RN 12/06/21 @ 1312 Ordering Provid er: JELANI SÁNCHEZ Report Released Date/Time: Dec 06, 2021 11:57 AM Reporting Lab: [facility] [address] [facility] [address] Performing Lab: [place] [facility] [address] [facility] [address] FLU A(PCR) NEGATIVE NEGATIVE FLU B(PCR) NEGATIVE NEGATIVE RSV(PCR) NEGATIVE NEGATIVE COVID-19([id number]) DETECTED HH NO T DETECTED Dec 06, 2021 12:00 PM [facility] PRO[facility] Sp ecimen Type: BLOOD No comment enter ed. Ordering Provid er: JELANI SÁNCHEZ Report Released Date/Time: Dec 06, 2021 11:57 AM Reporting Lab: [facility] [address] [facility] [address] Performing Lab: [facility] [address] [facility] [address] WBC 7.2 4.5-11.0 RBC 4.86 4.23-5.66 HGB [...] 2021 07:56 /min mm[Hg] RIVER PM T [facility] Dec 11, 3 WHITE 2021 07:49 RIVER PM T [facility] Dec 11, 98.3 F 98 127/83 18 /min 97 % 0 WHITE 2021 02:50 /min mm[Hg] RIVER PM T [facility] Dec 11, 0 WHITE 2021 01:57 RIVER PM T [facility] Dec 11, 0 WHITE 2021 08:49 RIVER AM [facility] Social History: Smoking Status (Most current) [...] place. Date/Time Smoking Status/Tobacco Use Comment [facility] Apr 01, 2020 01:16 PM QUIT [...] TOBACCO USE IN PAST YEAR [facility]TO[facility] Mar 16, 2016 12:50 PM V1-PT DECLINES REF TO TOBACCO [facility] DOYLE [facility] CESS PRGM Mar 16, 2016 12:50 PM V1-PT THINKING ABOUT QUIT [facility] DOYLE [facility] TOBACCO USE Aug 12, 2015 08:48 AM CURRENT SMOKER [facility] Yates [facility] Radiology Reports: +/- 30 days of [...] W/WO CONTRAST: MARYELLEN LONG LUCAS LARES N [id number] -1950 [facility] Exm Date: DEC 13, 2021@12:57 Req Phys: ISATU TODD Loc: OP Unknown/0 12-15-2021@13:20 Img Loc: MRI IMAGING (OOS) Service: ZGENERAL MEDICINE (Case [id number] COMPLETE) MRI ABDOMEN W/WO CONTRAST (M RI Detailed) CPT:43669 Reason for Study: further characterization of a [...] new lyphadenopathy REQUESTING MD: Isatu Todd PAGER: [phone] PHONE: [phone] Weight: 232.2 lb [105.32 kg] (12/12/2021 05:00) [...] Is the patient claustrophobic? Yes If yes, eksha donnelly prescribe an oral anxiolytic (such as Ativan) for the patien t to take with him/her to the MRI appointment.The patient will need to arrange for a cpr ambulance driver to take him/her home after the [...] 2021 Date Verified: DEC 15, 2021 Director Cardiology E-Sig:/ES/MARYELLEN LONG Report: MRI ABDOMEN W/WO CONTRAST [...] Primary Interpreting Staff: Staff AMELIA THOMAS (Director Cardiology) / Dec 10, 2021 09:[address] ABDOMEN & PELVIS: [facility]EEK N [id number] -1950 M SERVICE [facility] Exm Date: DEC 10, 2021@09:30 Req Phys: ISATU TODD Loc: 1S MED/12-10@10:57 Img Loc: CT SCAN (OOS) Service: [facility] MEDICINE (Case [id number] COMPLETE) CT ABD & PELVIS WITHOUT CONT RAST (CT Detailed) CPT:45475 Reason for Study: 71 yo male with [...] INDEX - NO HEIGHTS FOUND Pager number: [phone] STAT orders MUST be call ed to RADIOLOGY [phone] to speak to the appropriate civil drafting technician. Report Status: Verified Date Reported: DEC 10, 2021 Date Verified: DEC 10, 2021 Director Cardiology E-Sig: Report: EXAM: CT abdomen and pelvis [...] ph nodes. READING PHYSICIAN: Ramone Munoz D.O. [phone] 12/10/2021 10:55 EDT [facility] National Teleradiology Program [phone] (For Medical Practitioner Use Only ) [address] [facility] [facility] [address], [address] [place] [address] Attention Patients / Veterans: If you have ques tions or concerns about these test results, please contact your o rdering provider or primary care team. Primary Diagnostic Code: SIGNIFICANT ABNORMALIT Y, ATTN NEEDED Primary Interpreting Staff: RADIOLOGY,OUTSIDE SERVICE, Staff Physician / Dec 09, 2021 07:34 AM BASW (MODIFIED): JESSIE CHENEY [facility] [place] LUCAS MEEK [id number] -1950 M [facility] Exm Date: DEC 09, 2021@07:34 Req Phys: ISATU TODD Yao Manjarrez Loc: 1S MED/12-09@11:26 Img Loc: XRAY (OOS) Service: [facility] MEDICINE (Case [id number] COMPLETE) BASW (MODIFIED) (RAD Detaile d) CPT:99268 Contrast Media : Barium Reason for Study: dysphagia ?esophageal spasm Clinical History: Report Status: Verified Date Reported: DEC 09, 2021 Date Verified: DEC 09, 2021 Director Cardiology E-Sig:/ES/JESSIE CHENEY Report: BASW (MODIFIED) , 12/09/2021 [...] Primary Interpreting Staff: JESSIE CHENEY, RADIOLOGIST (Director Cardiology) /TLC Dec 06, 2021 12:[address] CHEST (INCLUDES ADRENALS): [facility] [id number] [facility]1950 [facility] Ex[facility] Date: DEC 06, 2021@12:59 Req Phys: GONZALOJELANI Loc: [facility] ED DAYS M 1RD (Req'g Loc) Img Loc: CT SCAN (OOS) Service: Unknown (Case [id number] COMPLETE) CT THORAX W/O CONT (CT Detai led) CPT:34885 Reason for Study: Opacification right chest Clinical History: No contrast allergy BUN: 13 (12/06/21 12:00) CREATI: 0.90 (12/06/21 12:00) eGFR 05/16/21 09:43 52 L Weight: 232.6 lb [105.51 kg] (12/06/2021 11:40) BODY MASS INDEX - NO HEIGHTS FOUND Pager number: [phone] STAT orders MUST be called t o RADIOLOGY [phone] to speak to the appropriate civil drafting technician. Indications - Other: Opacification right chest, covid positive, lung cancer histo Report Status: Verified Date Reported: DEC 06, 2021 Date Verified: DEC 06, 2021 Director Cardiology E-Sig:/ES/JESSIE CHENEY Report: CT THORAX W/O CONT [...] Primary Interpreting Staff: JESSIE CHENEY, RADIOLOGIST (Director Cardiology) Primary Interpreting Resident: PRINCE CHAMPION, Resident /BR Dec 06, 2021 11:58 AM CHEST SINGLE VIEW: JESSIE CHENEYT LUCAS MEEK N [id number] -1950 M [facility] Exm Date: DEC 06, 2021@11:58 Req Phys: JELANI SÁNCHEZ Pat Loc: [facility] ED DAYS M 1RD (Req'g Loc) Img Loc: XRAY (OOS) Service: Unknown (Case [id number] COMPLETE) CHEST SINGLE VIEW (RAD Detai led) CPT:53790 Proc Modifiers : PORTABLE EXAM Reason for Study: SOB, home covid test positive Clinical History: Report Status: Verified Date Reported: DEC 06, 2021 Date Verified: DEC 06, 2021 Director Cardiology E-Sig:/ES/JESSIE CHENEY Report: Exam type: Chest x-ray [...] Primary Interpreting Staff: JESSIE CHENEY, RADIOLOGIST (Director Cardiology) /TLC Pathology Reports: +/- 30 days of [...] Lab: [facility] [CLIA# [id number]] [address] [place] [address] - - - - - - [...] automatically d ocumented from SURGERY package case #[id number] Field (#32) PRINCIPAL PRE-OP DIAGNOSIS, (#.72) OTHER [...] automatically d ocumented from SURGERY package case #[id number] Field (#34) PRINCIPAL POST-OP DIAG, (#.74) OTHER [...] Label: Lucas Meek Paperwork: Lucas Meek Cassette: [id number];..;KALYANI;.;405;[phone] Specimen is labeled: ES bx Received in formalin are several pieces of pale boyd and brown tissue, 1.2 x 0.7 cm in aggregate. Submitted entirely in 1 cassette [id number];..;KALYANI;.;405;[id number] SAW 12/15/2021 Microscopic exam: *+* MODIFIED REPORT *+* (Last modified: JAN 03, 2022@09:30:20 typed by NIURKA WADDELL) DIAGNOSIS: A. 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 Kendell long. TIARA Coombs was notified on 12/21/21. Modified on 01/03/22 to include report from [facility] stating that tumor is NEGATIVE for her2/ matheus amplification. The attending pathologist who signature mansoor ears on this report has reviewed all diagnostic slides and has edited t he gross and/or microscopic portion of this report in rendering the final pathologic diagnosis. [address] [address] CPT: 59403 /emely/ NIURKA Yeung MD Signed Jan 03, 2022@10:28 Performing Laboratory: Surgical Pathology Report Performed By: [facility] [CLIA# [id number]] [address] [place] [address] $FTR - - - - - [...] - - LUCAS MEEK STANDARD FORM 515 ID:[id number] SEX:M :1950 AGE: 71 LOC: SDM END PCP: Isatu Todd /emely/ NIURKA MILLER Staff Signed: 01/03/2022 10:28 Dec 21, 2021 11:46 AM LR SURGICAL PATHOLOGY REPORT: STEFANY MILLER [facility] LOCAL TITLE: LR SURGICAL PATHOLOGY REPORT [facility] STANDARD TITLE: PATHOLOGY REPORT DATE OF NOTE: DEC 21, 2021@11:46:59 ENTRY DATE: DEC 21, 2021@11:46:59 AUTHOR: NIURKA MILLER EXP COSIGNER: URGENCY: STATUS: COMPLETED $APHDR Reporting Lab: [facility] [CLIA# [id number]] [address] [place] [address] - - - - - - [...] automatically d ocumented from SURGERY package case #[id number] Field (#32) PRINCIPAL PRE-OP DIAGNOSIS, (#.72) OTHER [...] automatically d ocumented from SURGERY package case #[id number] Field (#34) PRINCIPAL POST-OP DIAG, (#.74) OTHER [...] Label: Lucas Meek Paperwork: Lucas Meek Cassette: [id number];..;KALYANI;.;405;[id number] Specimen is labeled: ES bx Received in formalin are several pieces of pale boyd and brown tissue, 1.2 x 0.7 cm in aggregate. Submitted entirely in 1 cassette [id number];..;KALYANI;.;405;[id number] SAW 12/15/2021 Microscopic exam: DIAGNOSIS: A. 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 Kendell long. TIARA Coombs was notified on 12/21/21. The attending pathologist who signature mansoor ears on this report has reviewed all diagnostic slides and has edited t he gross and/or microscopic portion of this report in rendering the final pathologic diagnosis. [address] [address] CPT: 82366 /emely/ NIURKA Yeung MD Signed Dec 21, 2021@11:46 Performing Laboratory: Surgical Pathology Report Performed By: [facility] [CLIA# [id number]] [address] [place] [address] $FTR - - - - - [...] - - LUCAS MEEK STANDARD FORM 515 ID:[id number] SEX:M :1950 AGE: 71 LOC: [facility] END PCP: Isatu Todd /charmaine Yeung MD Signed: 12/21/2021 11:46 Dec 06, 2021 03:30 PM LR MICROBIOLOGY REPORT: [facility] Reporting Lab: [facility] [CLIA# [id number]] [address] [place] [address] Accession [UID]: [id number] [[id number]] Receiv ed: Dec 06, 2021@16:14 Collection sample: BLOOD CUL T BOTTLE(NIRMAL/AERO)Collection date: Dec 06, 2021 15:30 Site/Specimen: BLOOD Provider: JELANI SÁNCHEZ Comment on specimen: LAC Test(s) ordered: BLOOD CULTURE ANAEROBI C....... completed: Dec 12, 2021 06:18 * BACTERIOLOGY FINAL REPORT => Dec 12, 2021 06:1 8 TECH CODE: 10702 Bacteriology Remark(s): NO GROWTH IN 5 DAYS =--=--=--=--=--=--=--=--=--=--=--=--=--= --=--=--=--=--=--=--=--=--=--=--=--=-- Performing Laboratory: Bacteriology Report Performed By: [facility] [CLIA# [id number]] [address] [place] [address] Dec 06, 2021 03:30 PM LR MICROBIOLOGY REPORT: [facility] Reporting Lab: [facility] [CLIA# [id number]] [address] [place] [address] Accession [UID]: [id number] [[id number]] Receiv ed: Dec 06, 2021@16:14 Collection sample: BLOOD CUL T BOTTLE(NIRMAL/AERO)Collection date: Dec 06, 2021 15:30 Site/Specimen: BLOOD Provider: JELANI SÁNCHEZ Comment on specimen: LAC Test(s) ordered: BLOOD CULTURE AEROBIC. ........ completed: Dec 12, 2021 06:17 * BACTERIOLOGY FINAL REPORT => Dec 12, 2021 06:1 7 TECH CODE: 56530 Bacteriology Remark(s): NO GROWTH IN 5 DAYS =--=--=--=--=--=--=--=--=--=--=--=--=--= --=--=--=--=--=--=--=--=--=--=--=--=-- Performing Laboratory: Bacteriology Report Performed By: [facility] [CLIA# [id number]] [address] [place] [address]
--- OUTSIDE RECORDS SUMMARY | 2022-01-19 09:15 | XMS_ITS ---
DAILY HOSPITALIZATION DATA [facility]Y DOYLE [facility] Encounter Summary Created on:December 11, 2021 Patient:LUCAS MEEK Sex:Male :1950 Author Organization [facility] Address [address] [place] [address] Support Name Relationship Address Phone YUSRA MEEK Unavailable [address] [place] [place] [address] YUSRA MEEK Unavailable [address] [place] [address] CLAY MOSLEY Unavailable Unavailable SJ SANTACRUZ Unavailable [...] MEDICARE MEDICARE PART Jun 18, PART A [id number] KALYANI PATIENT (WNR) (M) A 2016 13A 1 U[place]AS MEDICARE MEDICARE PART Jun 18, PART A [id number] MEEK DO PATIENT (WNR) (M) A 2017 VH81 2 [place]AS MEDICARE MEDICARE PART Jun 18, PART B [id number] KALYANIDO PATIENT (WNR) (M) B 2017 VH81 2 [place] MEDICARE MEDICARE PART Jun 18, PART B [id number] DO KALYANI PATIENT (WNR) (M) B 2016 13A 1 [place]AS UNITED MEDICARE MCR(Jun [id number] Luz MEEK PATIENT HEALTHCARE ADVANTAGE NR) 2021 37 0 UGLAS MCR (WNR) Selected Encounter This section includes the information on record at [place] for the Encounter. Date/Time Encounter Type Encounter Description Reason Provider Source Dec 11, 2021 06:41 Inpatient Visit DAILY HOSPITALIZATION DATA PM IHE [...] 2022 10:00 AM AMBULATORY - SURGERY [place] [facility] Mar 21, 2022 10:30 AM [...] The data comes from all [place] treatment [facility]. Test Date/Time Test Type Test Details Facility Name October 31, 2021 07:37 AM Consult Order [facility]-EGD [facility] Cons Returned Goods Receiving Clerk's Choice November 15, 2021 10:37 AM Consult Order [facility] CARE-PODIATRY Cons Returned Goods Receiving Clerk's Choice Dec 06, 2021 12:52 PM [...] PATHOLOGY [place] OUTPATIENT Cons [facility] Returned Goods Receiving Clerk's Choice Jan 15, 2022 10:08 PM Consult Order [facility] CARE-PALLIATIVE CARE Cons Returned Goods Receiving Clerk's Choice Lab Results: +/- 30 days [...] Reference Range Comment Dec 15, 2021 [place] P4 GLU,BUN,CREAT,LYTES,CA Speci men Type: PLASMA 06:43 AM [facility] Comment: Tests performed on Linear Labs (405) SN:[id number] Ordering Provid er: ISATU TODD Report Released Date/Time: Dec 11, 2021 07:42 AM Reporting Lab: [facility] DO[facility] T [facility] [address] [facility] [address] Performing Lab: [facility] [address] [facility] [address] UREA NITROGEN 9 7-25 SODIUM 137 135-145 [...] [facility] [address] [facility] [address] Performing Lab: [facility] [address] [facility] [address] WBC 5.7 4.5-11.0 RBC 4.22 L 4.23-5.66 [...] ABSOLUTE NRBC 0.00 0-0 Dec 14, 2021 [place] CYTOGENETIC Specimen Type: ESOPHAGUS 02:59 PM [facility] FISH([facility]) Comment: ~For T est: CYTOGENETIC FISH([facility]) ~FISH HER 2 NUE, FFPE See full report in Analyze Re Image display viewer/tab#LAB-Reference Ordering Provid er: NIURKA MILLER Report Released Date/Time: Dec 21, 2021 12:11 PM Reporting Lab: [facility] [address] [facility] [address] Performing Lab: [facility] CYTOGENETIC FISH([facility]) comment Dec 14, 2021 06:27 AM [facility] CBC PROFILE Sp ecimen Type: BLOOD No comment enter ed. Ordering Provid er: ISATU TODD Report Released Date/Time: Dec 10, 2021 07:22 AM Reporting Lab: [facility] [address] [facility] [address] Performing Lab: [facility] [address] [facility] [address] WBC 6.0 4.5-11.0 RBC 4.29 4.23-5.66 HGB [...] ABSOLUTE NRBC 0.00 0-0 Dec 14, 2021 [facility] P4 GLU,BUN,CREAT,LYTES,CA Speci men Type: PLASMA 06:27 AM [facility] Comment: Tests performed on [employer] (405) SN:[id number] Ordering Provid er: ISATU TODD Report Released Date/Time: Dec 11, 2021 07:42 AM Reporting Lab: [facility] [address] [facility] [address] Performing Lab: [facility] [address] [facility] [address] UREA NITROGEN 10 7-25 SODIUM 137 135-145 POTASSIUM 4.0 3.5-5.0 CHLORIDE 104 100-110 CARBON DIOXIDE 25 20-30 ANION GAP 8 4-16 GLUCOSE 99 65-100 CREATININE 0.67 0.5-1.5 CALCIUM 8.2 L 8.5-10.5 eGFR(CKD-EPI 2020) >90.0 >60 Dec 13, 2021 [facility] P4 GLU,BUN,CREAT,LYTES,CA Speci men Type: PLASMA 06:34 AM [facility] Comment: Tests performed on Linear Labs (405) SN:[id number] Ordering Provid er: ISATU TODD Report Released Date/Time: Dec 11, 2021 07:42 AM Reporting Lab: [facility] [address] [facility] [address] Performing Lab: [facility] [address] [facility] [address] UREA NITROGEN 12 7-25 SODIUM 136 135-145 [...] Lab: [facility] [address] [facility] [address] Performing Lab: [facility] [address] [facility] [address] WBC 5.6 4.5-11.0 RBC 4.28 4.23-5.66 HGB [...] ABSOLUTE NRBC 0.00 0-0 Dec 12, 2021 [facility] P4 GLU,BUN,CREAT,LYTES,CA Speci men Type: PLASMA 06:21 AM [facility] Comment: Tests performed on Linear Labs (405) SN:[id number] Ordering Provid er: ISATU TODD Report Released Date/Time: Dec 11, 2021 07:42 AM Reporting Lab: [facility] [address] [facility] [address] Performing Lab: [facility] [address] [facility] [address] UREA NITROGEN 11 7-25 SODIUM 139 135-145 [...] Dec 10, 2021 07:22 AM Reporting Lab: [facility] [address] [facility] [address] Performing Lab: [facility] [address] [facility] [address] WBC 5.5 4.5-11.0 RBC 4.37 4.23-5.66 HGB [...] 0.00 0-0 Dec 12, 2021 06:00 AM [facility]K [employer] [facility] MAGNESIUM Sp ecimen Type: PLASMA Comment: Testin g Performed on Linear Labs (405) SN:[id number] Ordering Provid er: ISATU TODD Report Released Date/Time: Dec 12, 2021 08:24 AM Reporting Lab: [place] [address] [facility] [address] Performing Lab: [place] [employer] [place] [facility] [address] [facility] [address] MAGNESIUM 1.8 1.6-2.6 Dec 12, 2021 06:00 AM JK [employer] PHOSPHORUS Sp ecimen Type: PLASMA Comment: Testin g Performed on Linear [employer] (405) SN:[id number] Ordering Provid er: ISATU TODD Report Released Date/Time: Dec 12, 2021 08:24 AM Reporting Lab: [facility] [address] [facility] [address] Performing Lab: [facility] [employer] [address] [facility] [address] PHOSPHORUS 3.1 2.5-5.0 Dec 11, 2021 06:15 AM [facility] [place] [employer] [place] [employer] ELECTROLYTES Sp ecimen Type: PLASMA Comment: Tests performed on Linear [employer] (405) SN:[id number] Ordering Provid er: ISATU TODD Report Released Date/Time: Dec 10, 2021 07:22 AM Reporting Lab: [facility] [address] [facility] [address] Performing Lab: [facility] [address] [facility] [address] SODIUM 137 135-145 POTASSIUM 4.3 3.5-5.0 CHLORIDE 108 100-110 CARBON DIOXIDE 20 20-30 ANION GAP 9 4-16 Dec 11, 2021 06:15 AM [place] [employer] [facility] CBC PROFILE Sp ecimen Type: BLOOD Comment: Result s checked Ordering Provid er: ISATU TODD Report Released Date/Time: Dec 10, 2021 07:22 AM Reporting Lab: [facility] [address] [facility] [address] Performing Lab: [place] [facility] [facility] [address] [facility] [address] WBC 5.8 4.5-11.0 RBC 4.37 4.23-5.66 HGB [...] 0.00 0-0 Dec 11, 2021 06:00 AM [facility] PHOSPHORUS Sp ecimen Type: PLASMA Comment: Tests performed on Linear Labs (725) SN:[id number] Results checked Ordering Provid er: ISATU TODD Report Released Date/Time: Dec 11, 2021 07:44 AM Reporting Lab: [facility] [place] [facility] [address] [facility] [address] Performing Lab: [facility]GAT [facility] [address] [facility] [address] PHOSPHORUS 3.0 2.5-5.0 Dec 10, 2021 08:05 AM [place] UREA NITROGEN Specimen Type: PLASMA [facility] Comment: [place] [id number] on Dec 10, 2021@08:31 Tests performed on Linear Labs (405) SN:[id number] Ordering Provid er: ISATU TODD Report Released Date/Time: Dec 10, 2021 07:22 AM Reporting Lab: [place] [facility] [address] [place] [facility] [place] [address] Performing Lab: [place] [facility] [address] [place] [facility] [place] [address] UREA NITROGEN 8 7-25 Dec 10, 2021 08:05 AM [place] [facility] PHOSPHORUS Sp ecimen Type: PLASMA Comment: [place] [id number] on Dec 10, 2021@08:31 Tests performed on Linear Labs (405) SN:[id number] Ordering Provid er: ISATU TODD Report Released Date/Time: Dec 10, 2021 07:22 AM Reporting Lab: [place] [facility] [address] [place] [facility] [place] [address] Performing Lab: [place] [facility] [address] [place] [facility] [place] [address] PHOSPHORUS 1.8 L 2.5-5.0 Dec 10, 2021 08:05 AM [place] [facility] MAGNESIUM Sp ecimen Type: PLASMA Comment: [place] [id number] on Dec 10, 2021@08:31 Tests performed on Pham Renov[employer] (405) SN:[id number] Ordering Provid er: ISATU TODD Report Released Date/Time: Dec 10, 2021 07:22 AM Reporting Lab: [place] [facility] [address] [place] [facility] [place] [address] Performing Lab: [place] [facility] [address] [place] [facility] [place] [address] MAGNESIUM 1.7 1.6-2.6 Dec 10, 2021 08:05 AM [place] [facility] ELECTROLYTES Sp ecimen Type: PLASMA Comment: [place] [id number] on Dec 10, 2021@08:31 Tests performed on Phma Renovagen (405) SN:[id number] Ordering Provid er: ISATU TODD Report Released Date/Time: Dec 10, 2021 07:22 AM Reporting Lab: [place] [facility] [address] [facility] [address] Performing Lab: [place] [facility] [address] [facility] [address] SODIUM 139 135-145 POTASSIUM 3.7 3.5-5.0 CHLORIDE 107 100-110 CARBON DIOXIDE 24 20-30 ANION GAP 8 4-16 Dec 10, 2021 08:05 AM [place] [facility] CALCIUM Sp ecimen Type: PLASMA Comment: [place] [id number] on Dec 10, 2021@08:31 Tests performed on Pham Counter Tender (405) SN:[id number] Ordering Provid er: ISATU TODD Report Released Date/Time: Dec 10, 2021 07:22 AM Reporting Lab: [place] [facility] [address] [facility] [address] Performing Lab: [place] [facility] [address] [facility] [address] CALCIUM 8.3 L 8.5-10.5 Dec 10, 2021 08:05 [place] CREATININE WITH eGFR Specime n Type: PLASMA AM [facility] PANEL Comment: [place] [id number] on Dec 10, 2021@08:31 Tests performed on Pham Counter Tender (405) SN:[id number] Ordering Provid er: ISATU TODD Report Released Date/Time: Dec 10, 2021 07:22 AM Reporting Lab: [place] [facility] [address] [facility] [address] Performing Lab: [place] [facility] [address] [facility] [address] CREATININE 0.78 0.5-1.5 eGFR(CKD-EPI 2020) >90.0 >60 Dec 10, 2021 08:05 AM [place] [facility] GLUCOSE Sp ecimen Type: PLASMA Comment: [place] [id number] on Dec 10, 2021@08:31 Tests performed on Pham Counter Tender (405) SN:[id number] Ordering Provid er: ISATU TODD Report Released Date/Time: Dec 10, 2021 07:22 AM Reporting Lab: [place] [facility] [address] [facility] [address] Performing Lab: [place] [facility] [address] [facility] [address] GLUCOSE 144 H 65-100 Dec 10, 2021 08:05 AM [facility] CBC PROFILE Sp ecimen Type: BLOOD No comment enter ed. Ordering Provid er: ISATU TODD Report Released Date/Time: Dec 10, 2021 07:22 AM Reporting Lab: [place] [facility] [address] [facility] [address] Performing Lab: [facility] [address] [facility] [address] WBC 7.0 4.5-11.0 RBC 4.54 4.23-5.66 HGB [...] 0.00 0-0 Dec 09, 2021 06:46 AM [facility] MAGNESIUM Sp ecimen Type: PLASMA Comment: Tests performed on [employer] (163) SN:[id number] Ordering Provid er: ISATU TODD Report Released Date/Time: Dec 08, 2021 10:23 AM Reporting Lab: [facility] [address] [facility] [address] Performing Lab: [facility] [address] [facility] [address] MAGNESIUM 1.6 1.6-2.6 Dec 09, 2021 [facility] P4 GLU,BUN,CREAT,LYTES,CA Speci men Type: PLASMA 06:46 AM [facility] Comment: Tests performed on Linear Labs (405) SN:[id number] Ordering Provid er: ISATU TODD Report Released Date/Time: Dec 08, 2021 05:00 PM Reporting Lab: [facility] [address] [facility] [address] Performing Lab: [facility] [address] [facility] [address] UREA NITROGEN 6 L 7-25 SODIUM 134 [...] Lab: [facility] [address] [facility] [address] Performing Lab: [facility] [address] [facility] [address] WBC 7.1 4.5-11.0 RBC 4.40 4.23-5.66 HGB [...] 0-0 Dec 08, 2021 06:39 AM [facility] MAGNESIUM Sp ecimen Type: PLASMA Comment: Testin g Performed on Linear Labs (405) SN:[id number] Ordering Provid er: ISATU TODD Report Released Date/Time: Dec 07, 2021 10:32 AM Reporting Lab: [facility] [address] [facility] [address] Performing Lab: [facility] [address] [facility] [address] MAGNESIUM 1.5 L 1.6-2.6 Dec 08, 2021 06:39 AM [facility] CBC PROFILE Sp ecimen Type: BLOOD No comment enter ed. Ordering Provid er: ISATU TODD Report Released Date/Time: Dec 07, 2021 10:32 AM Reporting Lab: [facility] [address] [facility] [address] Performing Lab: [facility] [address] [facility] [address] WBC 8.4 4.5-11.0 RBC 4.75 4.23-5.66 HGB [...] ABSOLUTE NRBC 0.00 0-0 Dec 08, 2021 [facility] P4 GLU,BUN,CREAT,LYTES,CA Speci men Type: PLASMA 06:39 AM [facility] Comment: Testin g Performed on Pham Renovagen (405) SN:[id number] Ordering Provid er: ISATU TODD Report Released Date/Time: Dec 07, 2021 10:32 AM Reporting Lab: [facility] [address] [facility] [address] Performing Lab: [facility] [address] [facility] [address] UREA NITROGEN 6 L 7-25 SODIUM 136 135-145 POTASSIUM 3.3 L 3.5-5.0 CHLORIDE 104 100-110 CARBON DIOXIDE 22 20-30 ANION GAP 10 4-16 GLUCOSE 133 H 65-100 CREATININE 0.76 0.5-1.5 CALCIUM 8.4 L 8.5-10.5 eGFR(CKD-EPI 2020) >90.0 >60 Dec 07, 2021 [facility] P4 GLU,BUN,CREAT,LYTES,CA Speci men Type: PLASMA 06:42 AM [facility] Comment: Tests performed on Pham Renovagen (405) SN:[id number] Ordering Provid er: PORFIRIO WALTERS Report Released Date/Time: Dec 06, 2021 06:57 PM Reporting Lab: [facility] [address] [facility] [address] Performing Lab: [facility] [address] [facility] [address] UREA NITROGEN 9 7-25 SODIUM 135 135-145 POTASSIUM 3.5 3.5-5.0 CHLORIDE 103 100-110 CARBON DIOXIDE 22 20-30 ANION GAP 10 4-16 GLUCOSE 92 65-100 CREATININE 0.73 0.5-1.5 CALCIUM 8.0 L 8.5-10.5 eGFR(CKD-EPI 2020) >90.0 >60 Dec 07, 2021 06:42 [place] LIVER PROFILE Specimen Typ e: PLASMA AM [facility] Comment: Tests performed on OneMob Counter Tender (405) SN:[id number] Ordering Provid er: PORFIRIO WALTERS Report Released Date/Time: Dec 06, 2021 06:57 PM Reporting Lab: [facility] [address] [facility] [address] Performing Lab: [facility] [address] [facility] [address] PROTEIN, TOTAL 5.7 L 6.0-8.5 ALBUMIN 2.4 L 3.2-5.0 BILIRUBIN, TOTAL 0.4 0.2-1.2 ALKALINE PHOSPHATASE 109 40-150 ALT(SGPT) 10 7-52 AST(SGOT) 15 5-34 FIB-4 SCORE 1.92 <2.67 Dec 07, 2021 06:42 AM [facility] CBC PROFILE Specimen Type: BLOOD [facility] No comment enter ed. Ordering Provid er: PORFIRIO WALTERS Report Released Date/Time: Dec 06, 2021 06:57 PM Reporting Lab: [facility] [address] [facility] [address] Performing Lab: [facility] [address] [facility] [address] WBC 5.7 4.5-11.0 RBC 4.15 L 4.23-5.66 [...] [facility] %) AUTOMATED Comment: Tests performed on Linear Labs (405) SN:[id number] Ordering Provid er: ISATU TODD Report Released Date/Time: Dec 07, 2021 10:28 AM Reporting Lab: [place] [facility] [address] [facility] [address] Performing Lab: [place] [facility] [address] [facility] [address] RETICULOCYTES (%) AUTOMATED 1.23 0. 6-2.0 RETICULOCYTES (ABS) AUTOMATED 0.052 0.030-0.090 Dec 06, 2021 09:45 [place] MRSA SURVL NARES Specimen Ty pe: NARES PM [facility] DNA No comment enter ed. Ordering Provid er: ALVARO VARGHESE Report Released Date/Time: Dec 07, 2021 02:20 AM Reporting Lab: [place] [facility] [address] [facility] [address] Performing Lab: [place] [facility] [address] [facility] [address] MRSA SURVL NARES DNA NEGATIVE NEGATIVE Dec 06, 2021 06:00 [place] URINALYSIS W/REFLEX TO Speci men Type: URINE PM [facility] CULTURE No comment enter ed. Ordering Provid er: JELANI SÁNCHEZ Report Released Date/Time: Dec 06, 2021 11:57 AM Reporting Lab: [place] [facility] [address] [facility] [address] Performing Lab: [place] [facility] [address] [facility] [address] URINE COLOR Arlin YELLOW SPECIFIC GRAVITY 1.029 [...] 21, RIVER VARIANT Comment: https://www.cdc.gov/coronavirus/2019-ncov/cases-updates/variant- surveillance/variant-info.html The [employer] SARS CoV 2 [employer] Research Assay-GX is a next-generation sequencing (NGS) assa 2021 [facility] SEQUENCING y that determine s the complete genome sequence of the SARS-CoV-2 virus. The assay contains variant-tolerant primers to broaden and improve the coverage for variant detection and increase the sensitivity 12:00 [facility] PNL(WH) of the panel to enable detection from lower viral titer samples. The assay is run on the [employer] Cloud Superstructure Sequencer, which performs automated library preparation, sequencing, analysis, and reporting. PM The sequence an alysis includes determination of viral phylogenetic lineage by comparison to the reference strain Wuhan-Hu-1, GenBank: [id number]. Sequence determination may not be possible owing [...] Dec 06, 2021 01:13 PM Reporting Lab: [facility] [address] [facility] [address] Performing Lab: [facility] [address] [facility] [address] SARS-CoV-2 CLADE() 22C (OMICRON) SARS-CoV-2 LINEAGE() BA.2.12.1 Dec 06, 2021 12:00 [facility] COVID-19 AG SCREEN Specimen Type: NASAL CAVITY PM [facility] PANEL BINAX(405) Comment: Testi ng Performed By: Mike Briscoe Ordering Provid er: JELANI SÁNCHEZ Report Released Date/Time: Dec 08, 2021 08:23 AM Reporting Lab: [facility] [address] [facility] [address] Performing Lab: [facility] [address] [facility] [address] COVID-19 AG SCRN(wrj BINAX) POSITIVE HH NE G Dec 06, 2021 12:00 PM [facility] LIVER PROFILE Sp ecimen Type: PLASMA Comment: Testin g Performed on Pham Counter Tender (405) SN:[id number] Ordering Provid er: JELANI SÁNCHEZ Report Released Date/Time: Dec 06, 2021 11:57 AM Reporting Lab: [facility] [address] [facility] [address] Performing Lab: [facility] [address] [facility] [address] PROTEIN, TOTAL 6.6 6.0-8.5 ALBUMIN 2.8 L 3.2-5.0 BILIRUBIN, TOTAL 0.6 0.2-1.2 ALKALINE PHOSPHATASE 134 40-150 ALT(SGPT) 13 7-52 AST(SGOT) 18 5-34 FIB-4 SCORE 1.94 <2.67 Dec 06, 2021 12:00 [facility] Sp ecimen Type: PLASMA Comment: Tests performed on Pham Counter Tender (405) SN:[id number] Ordering Provid er: JELANI SÁNCHEZ Report Released Date/Time: Dec 06, 2021 11:57 AM Reporting Lab: [facility] [address] [facility] [address] Performing Lab: [facility] [address] [facility] [address] TROPONIN II 0.03 0.00-0.29 Dec 06, 2021 12:00 PM [facility] BNP(P) Sp ecimen Type: PLASMA Comment: Tests performed on Pham Counter Tender (405) SN:[id number] Ordering Provid er: JELANI SÁNCHEZ Report Released Date/Time: Dec 06, 2021 11:57 AM Reporting Lab: [facility] [address] [facility] [address] Performing Lab: [facility] [address] [facility] [address] BNP(P) 224.8 H 10-100 Dec 06, 2021 [facility] COVID-19+FLU/RSV DIAGNOSTIC Spe cimen Type: NASOPHARYNX 12:00 PM [facility] PANEL(405) Comment: Tests performed on [employer] Genexpert (405) Critical results called to and read back by: ALESHIA WILKINSON RN 12/06/21 @ 1312 Ordering Provid er: JELANI SÁNCHEZ Report Released Date/Time: Dec 06, 2021 11:57 AM Reporting Lab: [facility] [address] [facility] [address] Performing Lab: [facility] [address] [facility] [address] FLU A(PCR) NEGATIVE NEGATIVE FLU B(PCR) NEGATIVE NEGATIVE RSV(PCR) NEGATIVE NEGATIVE COVID-19(ZND-bkh-[id number]) DETECTED HH NO T DETECTED Dec 06, 2021 [facility] P4 GLU,BUN,CREAT,LYTES,CA Speci men Type: PLASMA 12:00 PM [facility] Comment: Testin g Performed on Pham Counter Tender (405) SN:[id number] Ordering Provid er: JELANI SÁNCHEZ Report Released Date/Time: Dec 06, 2021 11:57 AM Reporting Lab: [facility] [address] [facility] [address] Performing Lab: [facility] [address] [facility] [address] UREA NITROGEN 13 7-25 SODIUM 138 135-145 POTASSIUM 3.8 3.5-5.0 CHLORIDE 103 100-110 CARBON DIOXIDE 23 20-30 ANION GAP 12 4-16 GLUCOSE 105 H 65-100 CREATININE 0.90 0.5-1.5 CALCIUM 8.7 8.5-10.5 eGFR(CKD-EPI 2020) >90.0 >60 Dec 06, 2021 12:00 PM [facility] CBC PROFILE Sp ecimen Type: BLOOD No comment enter ed. Ordering Provid er: JELANI SÁNCHEZ Report Released Date/Time: Dec 06, 2021 11:57 AM Reporting [facility]: [facility] [address] [facility] [address] Performing Lab: [facility] [address] [facility] [address] WBC 7.2 4.5-11.0 RBC 4.86 4.23-5.66 HGB [...] 2021 07:56 /min mm[Hg] RIVER PM T [facility] Dec 11, 3 WHITE 2021 07:49 RIVER PM T [facility] Dec 11, 98.3 F 98 127/83 18 /min 97 % 0 WHITE 2021 02:50 /min mm[Hg] RIVER PM T [facility] Dec 11, 0 WHITE 2021 01:57 RIVER PM T [facility] Dec 11, 0 WHITE 2021 08:49 RIVER AM [facility] Social [...] place. Date/Time Smoking Status/Tobacco Use Comment [facility] Apr 01, 2020 01:16 PM [...] TOBACCO USE IN PAST YEAR CAREY MONTOYA [facility] Mar 16, 2016 12:50 PM [...] W/WO CONTRAST: MARYELLEN LONG LUCAS LARES N [id number] -1950 [facility] Exm Date: DEC 13, 2021@12:57 Req Phys: ISATU TODD Loc: OP Unknown/0 12-15-2021@13:20 Img Loc: MRI IMAGING (OOS) Service: ZGENERAL MEDICINE (Case [id number] COMPLETE) MRI ABDOMEN W/WO CONTRAST (M RI Detailed) CPT:81519 Reason for Study: further characterization of a [...] new lyphadenopathy REQUESTING MD: Isatu Todd PAGER: [phone] PHONE: [phone] Weight: 232.2 lb [105.32 kg] (12/12/2021 05:00) [...] patient will need to arrange for a sprinkler 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 to take him/her home after [...] 15, 2021 Date Verified: DEC 15, 2021 [employer] E-Sig:/ES/MARYELLEN LONG Report: MRI ABDOMEN W/WO CONTRAST [...] MALIGNANCY Primary Interpreting Staff: Staff AMELIA THOMAS ([employer]) / Dec 10, 2021 09:[address] ABDOMEN & PELVIS: [facility] N [id number] -1950 M SERVICE [facility] Exm Date: DEC 10, 2021@09:30 Req Phys: ISATU TODD Loc: 1S MED/12-10@10:57 Img Loc: CT SCAN (OOS) Service: [facility] MEDICINE (Case [id number] COMPLETE) CT ABD & PELVIS WITHOUT CONT RAST (CT Detailed) CPT:93260 Reason for Study: 71 yo male with [...] INDEX - NO HEIGHTS FOUND Pager number: [phone] STAT orders MUST be call ed to RADIOLOGY [phone] to speak to the appropriate traffic survey technician. Report Status: Verified Date Reported: DEC 10, 2021 Date Verified: DEC 10, 2021 [employer] E-Sig: Report: EXAM: CT abdomen and pelvis [...] ph nodes. READING PHYSICIAN: Ramone Munoz D.O. [phone] 12/10/2021 10:55 EDT [facility] National Teleradiology Program [phone] (For Medical Practitioner Use Only ) [address] [facility], [facility] [address], [address] [place] [address] Attention Patients / Veterans: If you have ques tions or concerns about these test results, please contact your o rdering provider or primary care team. Primary Diagnostic Code: SIGNIFICANT ABNORMALIT Y, ATTN NEEDED Primary Interpreting Staff: RADIOLOGY,OUTSIDE SERVICE, Staff Physician / Dec 09, 2021 07:34 AM BASW (MODIFIED): JESSIE CHENEY TARA ER JCT LUCAS MEEK [id number] -1950 M [facility] Exm Date: DEC 09, 2021@07:34 Req Phys: ISATU TODD Yao Manjarrez Loc: 1S MED/12-09@11:26 Img Loc: XRAY (OOS) Service: [facility] MEDICINE (Case [id number] COMPLETE) BASW (MODIFIED) (RAD Detaile d) CPT:69862 Contrast Media : Barium Reason for Study: dysphagia ?esophageal spasm Clinical History: Report Status: Verified Date Reported: DEC 09, 2021 Date Verified: DEC 09, 2021 [employer] E-Sig:/ES/JESSIE CHENEY Report: BASW (MODIFIED) , 12/09/2021 [...] REQUIRED Primary Interpreting Staff: JESSIE CHENEY, RADIOLOGIST ([employer]) /TLC Dec 06, 2021 12:[address] CHEST (INCLUDES ADRENALS): [facility] [id number] -1950 [facility] Exm Date: DEC 06, 2021@12:59 Req Phys: GONZALOJELANI Loc: [facility] ED DAYS M 1RD (Req'g Loc) Img Loc: CT SCAN (OOS) Service: Unknown (Case [id number] COMPLETE) CT THORAX W/O CONT (CT Detai led) CPT:38772 Reason for Study: Opacification right chest Clinical History: No contrast allergy BUN: 13 (12/06/21 12:00) CREATI: 0.90 (12/06/21 12:00) eGFR 05/16/21 09:43 52 L Weight: 232.6 lb [105.51 kg] (12/06/2021 11:40) BODY MASS INDEX - NO HEIGHTS FOUND Pager number: [phone] STAT orders MUST be called t o RADIOLOGY [phone] to speak to the appropriate traffic survey technician. Indications - Other: Opacification right chest, covid positive, lung cancer histo Report Status: Verified Date Reported: DEC 06, 2021 Date Verified: DEC 06, 2021 [employer] E-Sig:/ES/JESSIE CHENEY Report: CT THORAX W/O CONT [...] REQUIRED Primary Interpreting Staff: JESSIE CHENEY, RADIOLOGIST ([employer]) Primary Interpreting Resident: PRINCE CHAMPION, Resident /BR Dec 06, 2021 11:58 AM CHEST SINGLE VIEW: JESSIE CHENEYT LUCAS MEEK N [id number] -1950 [facility] Exm Date: DEC 06, 2021@11:58 Req Phys: JELANI SÁNCHEZ Pat Loc: [facility] ED DAYS M 1RD (Req'g Loc) Img Loc: XRAY (OOS) Service: Unknown (Case [id number] COMPLETE) CHEST SINGLE VIEW (RAD Detai led) CPT:38568 Proc Modifiers : PORTABLE EXAM Reason for Study: SOB, home covid test positive Clinical History: Report Status: Verified Date Reported: DEC 06, 2021 Date Verified: DEC 06, 2021 [employer] E-Sig:/ES/JESSIE CHENEY Report: Exam type: Chest x-ray [...] REQUIRED Primary Interpreting Staff: JESSIE CHENEY, RADIOLOGIST ([employer]) /TLC Pathology Reports: +/- 30 days of [...] MILLER LOCAL TITLE: LR SURGICAL PATHOLOGY REPORT [facility] STANDARD TITLE: PATHOLOGY REPORT DATE OF NOTE: JAN 03, 2022@10:28:01 ENTRY DATE: JAN 03, 2022@10:28:01 AUTHOR: NIURKA MILLER EXP COSIGNER: URGENCY: STATUS: COMPLETED $APHDR Reporting Lab: CAREY MONTOYA [facility] [CLIA# [id number]] [address] [place] [address] - - - - - - [...] automatically d ocumented from SURGERY package case #[id number] Field (#32) PRINCIPAL PRE-OP DIAGNOSIS, (#.72) OTHER [...] automatically d ocumented from SURGERY package case #[id number] Field (#34) PRINCIPAL POST-OP DIAG, (#.74) OTHER [...] Label: Lucas Meek Paperwork: Lucas Meek Cassette: [id number];..;KALYANI;.;405;[id number] Specimen is labeled: ES bx Received in formalin are several pieces of pale boyd and brown tissue, 1.2 x 0.7 cm in aggregate. Submitted entirely in 1 cassette [id number];..;KALYANI;.;405;[id number] SAW 12/15/2021 Microscopic exam: *+* MODIFIED REPORT *+* (Last modified: JAN 03, 2022@09:30:20 typed by NIURKA WADDELL) DIAGNOSIS: A. 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 Kendell long. TIARA Coombs was notified on 12/21/21. Modified on 01/03/22 to include report from [facility] stating that tumor is NEGATIVE for her2/ matheus amplification. The attending pathologist who signature mansoor ears on this report has reviewed all diagnostic slides and has edited t he gross and/or microscopic portion of this report in rendering the final pathologic diagnosis. [address] [address] CPT: 07999 /emely/ NIURKA Yeung MD Signed Jan 03, 2022@10:28 Performing Laboratory: Surgical Pathology Report Performed By: CAREY MONTOYA [facility] [CLIA# [id number]] [address] [place] [address] $FTR - - - - - [...] - - LUCAS MEEK STANDARD FORM 515 ID:[id number] SEX:M :1950 AGE: 71 LOC: SDM END PCP: Isatu Todd /emely/ NIURKA MILLER Staff Signed: 01/03/2022 10:28 Dec 21, 2021 11:46 AM LR SURGICAL PATHOLOGY REPORT: STEFANY MILLER [facility] LOCAL TITLE: LR SURGICAL PATHOLOGY REPORT [facility] STANDARD TITLE: PATHOLOGY REPORT DATE OF NOTE: DEC 21, 2021@11:46:59 ENTRY DATE: DEC 21, 2021@11:46:59 AUTHOR: NIURKA MILLER EXP COSIGNER: URGENCY: STATUS: COMPLETED $APHDR Reporting Lab: [facility] [CLIA# [id number]] [address] [place] [address] - - - - - - [...] automatically d ocumented from SURGERY package case #[id number] Field (#32) PRINCIPAL PRE-OP DIAGNOSIS, (#.72) OTHER [...] automatically d ocumented from SURGERY package case #[id number] Field (#34) PRINCIPAL POST-OP DIAG, (#.74) OTHER [...] Label: Lucas Meek Paperwork: Lucas Meek Cassette: [id number];..;KALYANI;.;405;[id number] Specimen is labeled: ES bx Received in formalin are several pieces of pale boyd and brown tissue, 1.2 x 0.7 cm in aggregate. Submitted entirely in 1 cassette [id number];..;KALYANI;.;405;[id number] SAW 12/15/2021 Microscopic exam: DIAGNOSIS: A. 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 Kendell long. TIARA Coombs was notified on 12/21/21. The attending pathologist who signature mansoor ears on this report has reviewed all diagnostic slides and has edited t he gross and/or microscopic portion of this report in rendering the final pathologic diagnosis. [address] [address] CPT: 58121 /emely/ NIURKA Yeung MD Signed Dec 21, 2021@11:46 Performing Laboratory: Surgical Pathology Report Performed By: [facility] [CLIA# [id number]] [address] [place] [address] $FTR - - - - - [...] - - LUCAS MEEK STANDARD FORM 515 ID:[id number] SEX:M :1950 AGE: 71 LOC: [facility] END PCP: Isatu Todd /charmaine Yeung MD Signed: 12/21/2021 11:46 Dec 06, 2021 03:30 PM LR MICROBIOLOGY REPORT: [facility] Reporting Lab: [facility] [CLIA# [id number]] [address] [place] [address] Accession [UID]: [id number] [[id number]] Receiv ed: Dec 06, 2021@16:14 Collection sample: BLOOD CUL T BOTTLE(NIRMAL/AERO)Collection date: Dec 06, 2021 15:30 Site/Specimen: BLOOD Provider: JELANI SÁNCHEZ Comment on specimen: LAC Test(s) ordered: BLOOD CULTURE ANAEROBI C....... completed: Dec 12, 2021 06:18 * BACTERIOLOGY FINAL REPORT => Dec 12, 2021 06:1 8 TECH CODE: 64802 Bacteriology Remark(s): NO GROWTH IN 5 DAYS =--=--=--=--=--=--=--=--=--=--=--=--=--= --=--=--=--=--=--=--=--=--=--=--=--=-- Performing Laboratory: Bacteriology Report Performed By: [facility] [CLIA# [id number]] [address] [place] [address] Dec 06, 2021 03:30 PM LR MICROBIOLOGY REPORT: [facility] Reporting Lab: [facility] [CLIA# [id number]] [address] [place] [address] Accession [UID]: [id number] [[id number]] Receiv ed: Dec 06, 2021@16:14 Collection sample: BLOOD CUL T BOTTLE(NIRMAL/AERO)Collection date: Dec 06, 2021 15:30 Site/Specimen: BLOOD Provider: JELANI SÁNCHEZ Comment on specimen: LAC Test(s) ordered: BLOOD CULTURE AEROBIC. ........ completed: Dec 12, 2021 06:17 * BACTERIOLOGY FINAL REPORT => Dec 12, 2021 06:1 7 TECH CODE: 60160 Bacteriology Remark(s): NO GROWTH IN 5 DAYS =--=--=--=--=--=--=--=--=--=--=--=--=--= --=--=--=--=--=--=--=--=--=--=--=--=-- Performing Laboratory: Bacteriology Report Performed By: [facility] [CLIA# [id number]] [address] [place] [address]
--- OUTSIDE RECORDS SUMMARY | 2022-01-19 09:15 | XMS_ITS ---
DAILY HOSPITALIZATION DATA [facility] Encounter Summary Created on:December 11, 2021 Patient:LUCAS MEEK Sex:Male :1950 Author Organization [facility] Address [address] [place] [id number] Support Name Relationship Address Phone YUSRA MEEK Unavailable [address] [place] [address] YUSRA MEEK Unavailable [address] [place] [facility] [place] [address] CLAY MOSLEY Unavailable Unavailable SJ SANTACRUZ Unavailable [...] MEDICARE MEDICARE PART Jun 18, PART A [id number] DO KALYANI PATIENT (WNR) (M) A 2016 13A 1 UGLAS MEDICARE MEDICARE PART Jun 18, PART A [id number] DO KALYANI PATIENT (WNR) (M) A 2017 VH81 2 LAS MEDICARE MEDICARE PART Jun 18, PART B [id number] DO KALYANI PATIENT (WNR) (M) B 2016 13A 1 UGLAS MEDICARE MEDICARE PART Jun 18, PART B [id number] DO KALYANI PATIENT (WNR) (M) B 2017 VH81 2 UGLAS UNITED MEDICARE MCR(Jun 18 [id number] Luz MEEK PATIENT HEALTHCARE ADVANTAGE NR) 2021 37 0 [facility] (WNR) Selected Encounter This section includes the information on record at [place] for the Encounter. Date/Time Encounter Type Encounter Description Reason Provider Source Dec 11, 2021 07:47 Inpatient Visit DAILY HOSPITALIZATION DATA PM IHE Encounter Template Text not used by [place] [...] [place] [facility] Jan 10, 2022 11:30 AM AMBULATORY - MEDICINE [facility] Jan 24, 2022 08:00 AM [place] [facility] Feb 21, 2022 10:00 AM AMBULATORY [place] [facility] Mar 21, 2022 10:30 [...] The data comes from all [place] treatment [facility]. Test Date/Time Test Type Test Details Facility Name October 31, 2021 07:37 AM Consult Order COMMUNITY CARE-EGD [facility] Cons Ell Tutor's Choice November 15, 2021 10:37 AM Consult Order [facility] CARE-PODIATRY Cons Ell Tutor's Choice Dec 06, 2021 12:52 PM Pharmacy - [place] Infusion Order [facility] Dec 06, 2021 03:24 PM Pharmacy - [place] Order [facility] Dec 06, 2021 03:40 PM Pharmacy [place] Order [facility] Dec 15, 2021 08:41 AM Consult Order SPEECH PATHOLOGY [place] OUTPATIENT Cons [facility] Ell Tutor's Choice Jan 15, 2022 10:08 PM Consult Order [facility] CARE-PALLIATIVE CARE Cons Ell Tutor's Choice Lab Results: +/- 30 days of [...] Reference Range Comment Dec 15, 2021 [place] P4 GLU,BUN,CREAT,LYTES,CA Speci men Type: PLASMA 06:43 AM [facility] Comment: Tests performed on Level 3 Communications (405) SN:[id number] Ordering Provid er: ISATU TODD Report Released Date/Time: Dec 11, 2021 07:42 AM Reporting Lab: [facility] T [facility] [address] [facility] [address] Performing Lab: [facility]T [facility] [address] [facility] [address] UREA NITROGEN 9 7-25 SODIUM 137 135-145 [...] N [facility] [address] Performing Lab: [facility]T [facility] [address] [facility] [address] WBC 5.7 4.5-11.0 RBC 4.22 L 4.23-5.66 [...] CYTOGENETIC Specimen Type: ESOPHAGUS 02:59 PM [facility] [place] [place] Comment: ~For T est: [place]TOGENETIC FISH[place] [place] ~FISH HER 2 NUE, FFPE See full report in Teros Image display viewer/tab#LAB-Reference Ordering Provid er: NIURKA MILLER Report Released Date/Time: Dec 21, 2021 12:11 PM Reporting Lab: [facility] [address] [facility] [address] Performing Lab: [facility] CYTOGENETIC FISH[place] [place] comment Dec 14, 2021 [facility] P4 GLU,BUN,CREAT,LYTES,CA Speci men Type: PLASMA 06:27 AM [facility] Comment: Tests performed on Level 3 Communications (405) SN:[id number] Ordering Provid er: ISATU TODD Report Released Date/Time: Dec 11, 2021 07:42 AM Reporting Lab: [facility] [address] [facility] [address] Performing Lab: [facility] [address] [facility] [address] UREA NITROGEN 10 7-25 SODIUM 137 135-145 [...] AM Reporting Lab: [facility] [address] [facility] [address] Performing Lab: [facility] [address] [facility] [address] WBC 6.0 4.5-11.0 RBC 4.29 4.23-5.66 HGB [...] 0.00 0-0 Dec 13, 2021 06:34 AM [facility] CBC PROFILE Sp ecimen Type: BLOOD No comment enter ed. Ordering Provid er: ISATU TODD Report Released Date/Time: Dec 10, 2021 07:22 AM Reporting Lab: [facility] [address] [facility] [address] Performing Lab: [facility] [address] [facility] [address] WBC 5.6 4.5-11.0 RBC 4.28 4.23-5.66 HGB [...] men Type: PLASMA 06:34 AM [facility] Comment: Tests performed on Level 3 Communications (405) SN:[id number] Ordering Provid er: ISATU TODD Report Released Date/Time: Dec 11, 2021 07:42 AM Reporting Lab: [facility] [address] [facility] [address] Performing Lab: [facility] [address] [facility] [address] UREA NITROGEN 12 7-25 SODIUM 136 135-145 POTASSIUM 3.9 3.5-5.0 CHLORIDE 105 100-110 CARBON DIOXIDE 24 20-30 ANION GAP 7 4-16 GLUCOSE 102 H 65-100 CREATININE 0.66 0.5-1.5 CALCIUM 8.3 L 8.5-10.5 eGFR(CKD-EPI 2020) >90.0 >60 Dec 12, 2021 [facility] P[facility] GLU,BUN,CREAT,LYTES,CA Speci men Type: PLASMA 06:21 AM [facility] Comment: Tests performed on Level 3 Communications (405) SN:[id number] Ordering Provid er: ISATU TODD Report Released Date/Time: Dec 11, 2021 07:42 AM Reporting Lab: [facility] [address] [facility] [address] Performing Lab: [facility] [address] [facility] [address] UREA NITROGEN 11 7-25 SODIUM 139 135-145 POTASSIUM 4.1 3.5-5.0 CHLORIDE 107 100-110 CARBON DIOXIDE 24 20-30 ANION GAP 8 4-16 GLUCOSE 110 H 65-100 CREATININE 0.70 0.5-1.5 CALCIUM 8.3 L 8.5-10.5 eGFR(CKD-EPI 2020) >90.0 >60 Dec 12, 2021 06:21 AM [facility] CBC PROFILE Sp ecimen Type: BLOOD No comment enter ed. Ordering Provid er: ISATU TODD Report Released Date/Time: Dec 10, 2021 07:22 AM Reporting Lab: [facility] [address] [facility] [address] Performing Lab: [facility] [address] [facility] [address] WBC 5.5 4.5-11.0 RBC 4.37 4.23-5.66 HGB [...] 0.00 0-0 Dec 12, 2021 06:00 AM [facility] [employer] MAGNESIUM Sp ecimen Type: PLASMA Comment: Testin g Performed on Level 3 Communications (405) SN:[id number] Ordering Provid er: ISATU TODD Report Released Date/Time: Dec 12, 2021 08:24 AM Reporting Lab: [place] [facility] [address] [facility] [address] Performing Lab: [facility] [place] [facility] [address] [facility] [address] MAGNESIUM 1.8 1.6-2.6 Dec 12, 2021 06:00 AM [facility] [employer]T [facility] PHOSPHORUS Sp ecimen Type: PLASMA Comment: Testin g Performed on Level 3 Communications (405) SN:[id number] Ordering Provid er: ISATU TODD Report Released Date/Time: Dec 12, 2021 08:24 AM Reporting Lab: [place] [facility] [address] [facility] [address] Performing Lab: [place] [facility] [employer] [address] [facility] [address] PHOSPHORUS 3.1 2.5-5.0 Dec 11, 2021 06:15 AM [facility] [place] [facility]T [facility] ELECTROLYTES Sp ecimen Type: PLASMA Comment: Tests performed on Level 3 Communications (405) SN:[id number] Ordering Provid er: ISATU TODD Report Released Date/Time: Dec 10, 2021 07:22 AM Reporting Lab: [place] [facility] [address] [facility] [address] Performing Lab: [place] [facility] [address] [facility] [address] SODIUM 137 135-145 POTASSIUM 4.3 3.5-5.0 CHLORIDE 108 100-110 CARBON DIOXIDE 20 20-30 ANION GAP 9 4-16 Dec 11, 2021 06:15 AM WHITE [employer]T [facility] CBC PROFILE Sp ecimen Type: BLOOD Comment: Result s checked Ordering Provid er: ISATU TODD Report Released Date/Time: Dec 10, 2021 07:22 AM Reporting Lab: [place] [facility] [address] [facility] [address] Performing Lab: [place] [facility]GAT [facility] [address] [facility] [address] WBC 5.8 4.5-11.0 RBC 4.37 4.23-5.66 HGB [...] ecimen Type: PLASMA Comment: Tests performed on Level 3 Communications (104) SN:[id number] Results checked Ordering Provid er: ISATU TODD Report Released Date/Time: Dec 11, 2021 07:44 AM Reporting Lab: [facility] [facility] [address] [facility] [address] Performing Lab: [place] OMEGAT TN[facility] [address] [facility] [address] PHOSPHORUS 3.0 2.5-5.0 Dec 10, 2021 08:05 AM [place] [facility] MAGNESIUM Sp ecimen Type: PLASMA Comment: [place] [id number] on Dec 10, 2021@08:31 Tests performed on Level 3 Communications (405) SN:[id number] Ordering Provid er: ISATU TODD Report Released Date/Time: Dec 10, 2021 07:22 AM Reporting Lab: [place] [facility] [address] [place] [facility] [place] [address] Performing Lab: [place] [facility] [address] [place] [facility] [place] [address] MAGNESIUM 1.7 1.6-2.6 Dec 10, 2021 08:05 AM [place] [facility] PHOSPHORUS Sp ecimen Type: PLASMA Comment: [place] [id number] on Dec 10, 2021@08:31 Tests performed on Level 3 Communications (405) SN:[id number] Ordering Provid er: ISATU TODD Report Released Date/Time: Dec 10, 2021 07:22 AM Reporting Lab: [place] [facility] [address] [place] [facility] [place] [address] Performing Lab: [place] [facility] [address] [place] [facility] [place] [address] PHOSPHORUS 1.8 L 2.5-5.0 Dec 10, 2021 08:05 AM [place] UREA NITROGEN Specimen Type: PLASMA [facility] Comment: [place] [id number] on Dec 10, 2021@08:31 Tests performed on Level 3 Communications (405) SN:[id number] Ordering Provid er: ISATU TODD Report Released Date/Time: Dec 10, 2021 07:22 AM Reporting Lab: [place] [facility] [address] [place] [facility] [place] [address] Performing Lab: [place] [facility] [address] [place] [facility] [place] [address] UREA NITROGEN 8 7-25 Dec 10, 2021 08:05 AM [place] [facility] GLUCOSE Sp ecimen Type: PLASMA Comment: [place] [id number] on Dec 10, 2021@08:31 Tests performed on Level 3 Communications (405) SN:[id number] Ordering Provid er: ISATU TODD Report Released Date/Time: Dec 10, 2021 07:22 AM Reporting Lab: [place] [facility] [address] [facility] [address] Performing Lab: [place] [facility] [address] [facility] [address] GLUCOSE 144 H 65-100 Dec 10, 2021 08:05 AM [place] [facility] CALCIUM Sp ecimen Type: PLASMA Comment: [place] [id number] on Dec 10, 2021@08:31 Tests performed on Level 3 Communications (405) SN:[id number] Ordering Provid er: ISATU TODD Report Released Date/Time: Dec 10, 2021 07:22 AM Reporting Lab: [place] [facility] [address] [facility] [address] Performing Lab: [place] [facility] [address] [facility] [address] CALCIUM 8.3 L 8.5-10.5 Dec 10, 2021 08:05 [place] CREATININE WITH eGFR Specime n Type: PLASMA AM [facility] PANEL Comment: [place] [id number] on Dec 10, 2021@08:31 Tests performed on Level 3 Communications (405) SN:[id number] Ordering Provid er: ISATU TODD Report Released Date/Time: Dec 10, 2021 07:22 AM Reporting Lab: [place] [facility] [address] [facility] [address] Performing Lab: [place] [facility] [address] [facility] [address] CREATININE 0.78 0.5-1.5 eGFR(CKD-EPI 2020) >90.0 >60 Dec 10, 2021 08:05 AM [place] [facility] CBC PROFILE Sp ecimen Type: BLOOD No comment enter ed. Ordering Provid er: ISATU TODD Report Released Date/Time: Dec 10, 2021 07:22 AM Reporting Lab: [place] [facility] [address] [facility] [address] Performing Lab: [place] [facility] [address] [facility] [address] WBC 7.0 4.5-11.0 RBC 4.54 4.23-5.66 HGB [...] 0-0 Dec 10, 2021 08:05 AM [facility] ELECTROLYTES Sp ecimen Type: PLASMA Comment: [place] [id number] on Dec 10, 2021@08:31 Tests performed on Level 3 Communications (405) SN:[id number] Ordering Provid er: ISATU TODD Report Released Date/Time: Dec 10, 2021 07:22 AM Reporting Lab: [facility] [address] [facility] [address] Performing Lab: [facility] [address] [facility] [address] SODIUM 139 135-145 POTASSIUM 3.7 3.5-5.0 CHLORIDE 107 100-110 CARBON DIOXIDE 24 20-30 ANION GAP 8 4-16 Dec 09, 2021 06:46 AM [place] [facility] MAGNESIUM Sp ecimen Type: PLASMA Comment: Tests performed on Level 3 Communications (405) SN:[id number] Ordering Provid er: ISATU TODD Report Released Date/Time: Dec 08, 2021 10:23 AM Reporting Lab: [place] [facility] [address] [facility] [address] Performing Lab: [facility] [address] [facility] [address] MAGNESIUM 1.6 1.6-2.6 Dec 09, 2021 [facility] P4 GLU,BUN,CREAT,LYTES,CA Speci men Type: PLASMA 06:46 AM [facility] Comment: Tests performed on Level 3 Communications (405) SN:[id number] Ordering Provid er: ISATU TODD Report Released Date/Time: Dec 08, 2021 05:00 PM Reporting Lab: [facility] [address] [facility] [address] Performing Lab: [facility] [address] [facility] [address] UREA NITROGEN 6 L 7-25 SODIUM 134 [...] Reporting Lab: [facility] [address] [facility] [address] Performing Lab: [facility] [address] [facility] [address] WBC 7.1 4.5-11.0 RBC 4.40 4.23-5.66 HGB [...] 0.00 0-0 Dec 08, 2021 06:39 AM [employer] T [facility] MAGNESIUM Sp ecimen Type: PLASMA Comment: Testin g Performed on Level 3 Communications (405) SN:[id number] Ordering Provid er: ISATU TODD Report Released Date/Time: Dec 07, 2021 10:32 AM Reporting Lab: [facility] [address] [facility] [address] Performing Lab: [facility] [address] [facility] [address] MAGNESIUM 1.5 L 1.6-2.6 Dec 08, 2021 [employer] [employer] T P4 GLU,BUN,CREAT,LYTES,CA Speci men Type: PLASMA 06:39 AM [facility] Comment: Testin g Performed on Level 3 Communications (405) SN:[id number] Ordering Provid er: ISATU TODD Report Released Date/Time: Dec 07, 2021 10:32 AM Reporting Lab: [employer] T [facility] [address] [facility] [address] Performing Lab: [facility] [address] [facility] [address] UREA NITROGEN 6 L 7-25 SODIUM 136 135-145 POTASSIUM 3.3 L 3.5-5.0 CHLORIDE 104 100-110 CARBON DIOXIDE 22 20-30 ANION GAP 10 4-16 GLUCOSE 133 H 65-100 CREATININE 0.76 0.5-1.5 CALCIUM 8.4 L 8.5-10.5 eGFR(CKD-EPI 2020) >90.0 >60 Dec 08, 2021 06:39 AM WHITE [employer] T [facility] CBC PROFILE Sp ecimen Type: BLOOD No comment enter ed. Ordering Provid er: ISATU TODD Report Released Date/Time: Dec 07, 2021 10:32 AM Reporting Lab: [facility] [address] [facility] [address] Performing Lab: [facility] [address] [place] [facility] [...] Specimen Typ e: PLASMA AM [facility] Comment: Tests performed on Level 3 Communications (405 SN:[id number] Ordering Provid er: PORFIRIO WALTERS Report Released Date/Time: Dec 06, 2021 06:57 PM Reporting Lab: [facility] [address] [facility] [address] Performing Lab: [facility] [address] [facility] [address] PROTEIN, TOTAL 5.7 L 6.0-8.5 ALBUMIN 2.4 L 3.2-5.0 BILIRUBIN, TOTAL 0.4 0.2-1.2 ALKALINE PHOSPHATASE 109 40-150 ALT(SGPT) 10 7-52 AST(SGOT) 15 5-34 FIB-4 SCORE 1.92 <2.67 Dec 07, 2021 [facility] P4 GLU,BUN,CREAT,LYTES,CA Speci men Type: PLASMA 06:42 AM [facility] Comment: Tests performed on Level 3 Communications (405) SN:[id number] Ordering Provid er: PORFIRIO WALTERS Report Released Date/Time: Dec 06, 2021 06:57 PM Reporting Lab: [place] [facility] [address] [facility] [address] Performing Lab: [place] [facility] [address] [facility] [address] UREA NITROGEN 9 7-25 SODIUM 135 135-145 POTASSIUM 3.5 3.5-5.0 CHLORIDE 103 100-110 CARBON DIOXIDE 22 20-30 ANION GAP 10 4-16 GLUCOSE 92 65-100 CREATININE 0.73 0.5-1.5 CALCIUM 8.0 L 8.5-10.5 eGFR(CKD-EPI 2020) >90.0 >60 Dec 07, 2021 06:42 AM [place] CBC PROFILE Specimen Type: BLOOD [facility] No comment enter ed. Ordering Provid er: PORFIRIO WALTERS Report Released Date/Time: Dec 06, 2021 06:57 PM Reporting Lab: [place] [facility] [address] [facility] [address] Performing Lab: [facility] [address] [facility] [address] WBC 5.7 4.5-11.0 RBC 4.15 L 4.23-5.66 [...] VAMROC %) AUTOMATED Comment: Tests performed on Level 3 Communications (405) SN:[id number] Ordering Provid er: ISATU TODD Report Released Date/Time: Dec 07, 2021 10:28 AM Reporting Lab: [place] [facility] [address] [facility] [address] Performing Lab: [place] [facility] [address] [facility] [address] RETICULOCYTES (%) AUTOMATED 1.23 0. 6-2.0 RETICULOCYTES (ABS) AUTOMATED 0.052 0.030-0.090 Dec 06, 2021 09:45 [place] MRSA SURVL NARES Specimen Ty pe: NARES PM [facility] DNA No comment enter ed. Ordering Provid er: ALVARO VARGHESE Report Released Date/Time: Dec 07, 2021 02:20 AM Reporting Lab: [place] [facility] [address] [facility] [address] Performing Lab: [place] [facility] [address] [facility] [address] MRSA SURVL NARES DNA NEGATIVE NEGATIVE Dec 06, 2021 06:00 [place] URINALYSIS W/REFLEX TO Speci men Type: URINE PM [facility] CULTURE No comment enter ed. Ordering Provid er: JELANI SÁNCHEZ Report Released Date/Time: Dec 06, 2021 11:57 AM Reporting Lab: [place] [facility] [address] [facility] [address] Performing Lab: [place] [facility] [address] [facility] [address] URINE COLOR Arlin YELLOW SPECIFIC GRAVITY 1.029 [...] 21, RIVER VARIANT Comment: https://www.cdc.gov/coronavirus/2019-ncov/cases-updates/variant- surveillance/variant-info.html The Timetric SARS CoV 2 OurStage Research Assay-GX is a next-generation sequencing (NGS) assa 2021 [facility] SEQUENCING y that determine s the complete genome sequence of the SARS-CoV-2 virus. The assay contains variant-tolerant primers to broaden and improve the coverage for variant detection and increase the sensitivity 12:00 [facility] PNL(WH) of the panel to enable detection from lower viral titer samples. The assay is run on the [employer] Sequencer, which performs automated library preparation, sequencing, analysis, and reporting. PM The sequence an alysis includes determination of viral phylogenetic lineage by comparison to the reference strain Wuhan-Hu-1, GenBank: [id number]. Sequence determination may not be possible owing [...] N [facility] [address] Performing Lab: [facility] [address] [facility] [address] SARS-CoV-2 CLADE() 22C (OMICRON) SARS-CoV-2 LINEAGE() BA.2.12.1 Dec 06, 2021 12:00 [facility] COVID-19 AG SCREEN Specimen Type: NASAL CAVITY PM [facility] PANEL BINAX(405) Comment: Testi ng Performed By: Mike Briscoe Ordering Provid er: JELANI SÁNCHEZ Report Released Date/Time: Dec 08, 2021 08:23 AM Reporting Lab: [facility] [address] [facility] [address] Performing Lab: [facility] [address] [facility] [address] COVID-19 AG SCRN(wrj BINAX) POSITIVE HH NE G Dec 06, 2021 12:00 PM [facility] TROPONIN II Sp ecimen Type: PLASMA Comment: Tests performed on Pham Barrel Rib Matting Machine Operator (405) SN:[id number] Ordering Provid er: JELANI SÁNCHEZ Report Released Date/Time: Dec 06, 2021 11:57 AM Reporting Lab: [facility] [address] [place] [facility] [place] [address] Performing Lab: [facility] [address] [facility] [address] TROPONIN II 0.03 0.00-0.29 Dec 06, 2021 12:00 PM [facility] LIVER PROFILE Sp ecimen Type: PLASMA Comment: Testin g Performed on Pham [employer] Rib Matting Machine Operator (405) SN:[id number] Ordering Provid er: JELANI SÁNCHEZ Report Released Date/Time: Dec 06, 2021 11:57 AM Reporting Lab: [facility] [address] [facility] [address] Performing Lab: [facility] [address] [facility] [address] PROTEIN, TOTAL 6.6 6.0-8.5 ALBUMIN 2.8 L 3.2-5.0 BILIRUBIN, TOTAL 0.6 0.2-1.2 ALKALINE PHOSPHATASE 134 40-150 ALT(SGPT) 13 7-52 AST(SGOT) 18 5-34 FIB-4 SCORE 1.94 <2.67 Dec 06, 2021 [place] P4 GLU,BUN,CREAT,LYTES,CA Speci men Type: PLASMA 12:00 PM [facility] Comment: Testin g Performed on Pham [employer]rel Rib Matting Machine Operator (405) SN:[id number] Ordering Provid er: JELANI SÁNCHEZ Report Released Date/Time: Dec 06, 2021 11:57 AM Reporting Lab: [place] [facility] [address] [facility] [address] Performing Lab: [facility] [facility] [address] [facility] [address] UREA NITROGEN 13 7-25 SODIUM 138 135-145 POTASSIUM 3.8 3.5-5.0 CHLORIDE 103 100-110 CARBON DIOXIDE 23 20-30 ANION GAP 12 4-16 GLUCOSE 105 H 65-100 CREATININE 0.90 0.5-1.5 CALCIUM 8.7 8.5-10.5 eGFR(CKD-EPI 2020) >90.0 >60 Dec 06, 2021 12:00 PM [facility] BNP(P) Sp ecimen Type: PLASMA Comment: Tests performed on Pham [employer] Rib Matting Machine Operator (405) [id number] Ordering Provid er: JELANI SÁNCHEZ Report Released Date/Time: Dec 06, 2021 11:57 AM Reporting Lab: [facility] [address] [facility] [address] Performing Lab: [facility] [address] [facility] [address] BNP(P) 224.8 H 10-100 Dec 06, 2021 [facility] [place] COVID-19+FLU/RSV DIAGNOSTIC Spe cimen Type: NASOPHARYNX 12:00 PM [facility] PANEL(405) Comment: Tests performed on Infoflowxpert (405) Critical results called to and read back by: ALESHIA WILKINSON RN 12/06/21 @ 1312 Ordering Provid er: JELANI SÁNCHEZ Report Released Date/Time: Dec 06, 2021 11:57 AM Reporting Lab: [facility] [place] [facility] [address] [facility] [address] Performing Lab: [place] [facility] [address] [facility] [address] FLU A(PCR) NEGATIVE NEGATIVE FLU B(PCR) NEGATIVE NEGATIVE RSV(PCR) NEGATIVE NEGATIVE COVID-19([id number]) DETECTED HH NO T DETECTED Dec 06, 2021 12:00 PM [facility] Sp ecimen Type: BLOOD No comment enter ed. Ordering Provid er: JELANI SÁNCHEZ Report Released Date/Time: Dec 06, 2021 11:57 AM Reporting Lab: [facility] [address] [facility] [address] Performing Lab: [facility] [address] [facility] [address] WBC 7.2 4.5-11.0 RBC 4.86 4.23-5.66 HGB [...] 2021 07:56 /min mm[Hg] RIVER PM T [facility] Dec 11, 3 WHITE 2021 07:49 RIVER PM T [facility] Dec 11, 98.3 F 98 127/83 18 /min 97 % 0 WHITE 2021 02:50 /min mm[Hg] RIVER PM T [facility] Dec 11, 0 WHITE 2021 01:57 RIVER PM T [facility] Dec 11, 0 WHITE 2021 08:49 RIVER AM [facility] Social History: Smoking Status (Most current) [...] QUIT TOBACCO USE IN PAST YEAR CAREY ODYLE [facility] May 01, 2016 11:19 AM QUIT TOBACCO USE IN PAST YEAR CAREY MONTOYA [facility] Mar 16, 2016 12:50 PM V1-PT DECLINES REF TO TOBACCO CAREY DOYLE [facility] CESS PRGM Mar 16, 2016 12:50 PM V1-PT THINKING ABOUT QUIT CAREY DOYLE [facility] TOBACCO USE Aug 12, 2015 08:48 AM CURRENT SMOKER CAREY Yates [facility] Radiology Reports: +/- 30 days of [...] W/WO CONTRAST: MARYELLEN LONG LUCAS LARES N [id number] -1950 [facility] Exm Date: DEC 13, 2021@12:57 Req Phys: ISATU TODD Loc: OP Unknown/0 12-15-2021@13:20 Img Loc: MRI IMAGING (OOS) Service: ZGENERAL MEDICINE (Case [id number] COMPLETE) MRI ABDOMEN W/WO CONTRAST (M RI Detailed) CPT:65568 Reason for Study: further characterization of a [...] new lyphadenopathy REQUESTING MD: Isatu Todd PAGER: [phone] PHONE: [phone] Weight: 232.2 lb [105.32 kg] (12/12/2021 05:00) [...] patient will need to arrange for a racing car driver to take him/her home after [...] 15, 2021 Date Verified: DEC 15, 2021 Delivery Nurse E-Sig:/ES/MARYELLEN LONG Report: MRI ABDOMEN W/WO [...] MALIGNANCY Primary Interpreting Staff: Staff AMELIA THOMAS (Delivery Nurse) / Dec 10, 2021 09:[address] ABDOMEN & PELVIS: [facility] LUCAS [facility]EEK N [id number] -1950 M SERVICE [facility] Exm Date: DEC 10, 2021@09:30 Req Phys: ISATU TODD Loc: 1S MED/12-10@10:57 Img Loc: CT SCAN (OOS) Service: [facility] MEDICINE (Case [id number] COMPLETE) CT ABD & PELVIS WITHOUT CONT RAST (CT Detailed) CPT:24270 Reason for Study: 71 yo male with [...] INDEX - NO HEIGHTS FOUND Pager number: [phone] STAT orders MUST be call ed to RADIOLOGY [phone] to speak to the appropriate elevator service technician. Report Status: Verified Date Reported: DEC 10, 2021 Date Verified: DEC 10, 2021 Delivery Nurse E-Sig: Report: EXAM: CT abdomen and [...] ph nodes. READING PHYSICIAN: Ramone Munoz D.O. [phone] 12/10/2021 10:55 EDT [facility] National Teleradiology Program [phone] (For Medical Practitioner Use Only ) [address] [facility] [address], [address] [place] [address] Attention Patients / Veterans: If you have ques tions or concerns about these test results, please contact your o rdering provider or primary care team. Primary Diagnostic Code: SIGNIFICANT ABNORMALIT Y, ATTN NEEDED Primary Interpreting Staff: RADIOLOGY,OUTSIDE SERVICE, Staff Physician / Dec 09, 2021 07:34 AM BASW (MODIFIED): JESSIE CHENEY TARA [facility] JCT LUCAS MEEK [id number] -1950 M [facility] Exm Date: DEC 09, 2021@07:34 Req Phys: IASTU TODD Yao Manjarrez Loc: 1S MED/12-09@11:26 Img Loc: XRAY (OOS) Service: [facility] MEDICINE (Case [id number] COMPLETE) BASW (MODIFIED) (RAD Detaile d) CPT:38564 Contrast Media : Barium Reason for Study: dysphagia ?esophageal spasm Clinical History: Report Status: Verified Date Reported: DEC 09, 2021 Date Verified: DEC 09, 2021 Delivery Nurse E-Sig:/ES/JESSIE CHENEY Report: BASW (MODIFIED) , [...] REQUIRED Primary Interpreting Staff: JESSIE CHENEY, RADIOLOGIST (Delivery Nurse) /TLC Dec 06, 2021 12:[address] CHEST (INCLUDES ADRENALS): [facility] [id number] -1950 [facility] Exm Date: DEC 06, 2021@12:59 Req Phys: GONZALOJELANI Loc: [facility] ED DAYS M 1RD (Req'g Loc) Img Loc: CT SCAN (OOS) Service: Unknown (Case [id number] COMPLETE) CT THORAX W/O CONT (CT Detai led) CPT:30437 Reason for Study: Opacification right chest Clinical History: No contrast allergy BUN: 13 (12/06/21 12:00) CREATI: 0.90 (12/06/21 12:00) eGFR 05/16/21 09:43 52 L Weight: 232.6 lb [105.51 kg] (12/06/2021 11:40) BODY MASS INDEX - NO HEIGHTS FOUND Pager number: [phone] STAT orders MUST be called t o RADIOLOGY [phone] to speak to the appropriate elevator service technician. Indications - Other: Opacification right chest, covid positive, lung cancer histo Report Status: Verified Date Reported: DEC 06, 2021 Date Verified: DEC 06, 2021 Delivery Nurse E-Sig:/ES/JESSIE CHENEY Report: CT THORAX W/O [...] REQUIRED Primary Interpreting Staff: JESSIE CHENEY, RADIOLOGIST (Delivery Nurse) Primary Interpreting Resident: PRINCE CHAMPION, Resident /BR Dec 06, 2021 11:58 AM CHEST SINGLE VIEW: JESSIE CHENEYT LUCAS MEEK N [id number] -1950 [facility] Exm Date: DEC 06, 2021@11:58 Req Phys: JELANI SÁNCHEZ Pat Loc: [facility] ED DAYS M 1RD (Req'g Loc) Img Loc: XRAY (OOS) Service: Unknown (Case [id number] COMPLETE) CHEST SINGLE VIEW (RAD Detai led) CPT:65785 Proc Modifiers : PORTABLE EXAM Reason for Study: SOB, home covid test positive Clinical History: Report Status: Verified Date Reported: DEC 06, 2021 Date Verified: DEC 06, 2021 Delivery Nurse E-Sig:/ES/JESSIE CHENEY Report: Exam type: Chest [...] REQUIRED Primary Interpreting Staff: JESSIE CHENEY, RADIOLOGIST (Delivery Nurse) /TLC Pathology Reports: +/- 30 days [...] TITLE: LR SURGICAL PATHOLOGY REPORT [facility] STANDARD TITLE: PATHOLOGY REPORT DATE OF NOTE: JAN 03, 2022@10:28:01 ENTRY DATE: JAN 03, 2022@10:28:01 AUTHOR: NIURKA MILLER EXP COSIGNER: URGENCY: STATUS: COMPLETED $APHDR Reporting Lab: CAREY MONTOYA [facility] [CLIA# [id number]] [address] [place] [address] - - - - - - [...] automatically d ocumented from SURGERY package case #[id number] Field (#32) PRINCIPAL PRE-OP DIAGNOSIS, (#.72) OTHER [...] automatically d ocumented from SURGERY package case #[id number] Field (#34) PRINCIPAL POST-OP DIAG, (#.74) OTHER [...] Label: Lucas Meek Paperwork: Lucas Meek Cassette: [id number];..;KALYANI;.;405;[id number] Specimen is labeled: ES bx Received in formalin are several pieces of pale boyd and brown tissue, 1.2 x 0.7 cm in aggregate. Submitted entirely in 1 cassette [id number];..;KALYANI;.;405;[id number] SAW 12/15/2021 Microscopic exam: *+* MODIFIED REPORT [...] in rendering the final pathologic diagnosis. [address] [address] CPT: 13383 /emely/ NIURKA Yeung MD Signed Jan 03, 2022@10:28 Performing Laboratory: Surgical Pathology Report Performed By: CAREY MONTOYA [facility] [CLIA# [id number]] [address] [place] [address] $FTR - - - - - [...] - - LUCAS MEEK STANDARD FORM 515 ID:[id number] SEX:M :1950 AGE: 71 LOC: SDM END PCP: Isatu Todd /emely/ NIURKA MILLER Staff Signed: 01/03/2022 10:28 Dec 21, 2021 11:46 AM LR SURGICAL PATHOLOGY REPORT: STEFANY MILLER [facility] LOCAL TITLE: LR SURGICAL PATHOLOGY REPORT [facility] STANDARD TITLE: PATHOLOGY REPORT DATE OF NOTE: DEC 21, 2021@11:46:59 ENTRY DATE: DEC 21, 2021@11:46:59 AUTHOR: NIURKA MILLER EXP COSIGNER: URGENCY: STATUS: COMPLETED $APHDR Reporting Lab: [facility] [CLIA# [id number]] [address] [place] [address] - - - - - - [...] automatically d ocumented from SURGERY package case #[id number] Field (#32) PRINCIPAL PRE-OP DIAGNOSIS, (#.72) OTHER [...] automatically d ocumented from SURGERY package case #[id number] Field (#34) PRINCIPAL POST-OP DIAG, (#.74) OTHER [...] Label: Lucas Meek Paperwork: Lucas Meek Cassette: [id number];..;KALYANI;.;405;[id number] Specimen is labeled: ES bx Received in formalin are several pieces of pale boyd and brown tissue, 1.2 x 0.7 cm in aggregate. Submitted entirely in 1 cassette [id number];..;KALYANI;.;405;[id number] SAW 12/15/2021 Microscopic exam: DIAGNOSIS: A. 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 Kendell long. TIARA Coombs was notified on 12/21/21. The attending pathologist who signature mansoor ears on this report has reviewed all diagnostic slides and has edited t he gross and/or microscopic portion of this report in rendering the final pathologic diagnosis. [address] [address] CPT: 33764 /emely/ NIURKA Yeung MD Signed Dec 21, 2021@11:46 Performing Laboratory: Surgical Pathology Report Performed By: [facility] [CLIA# [id number]] [address] [place] [address] $FTR - - - - - [...] - - LUCAS MEEK STANDARD FORM 515 ID:[id number] SEX:M :1950 AGE: 71 LOC: [facility] END PCP: Isatu Todd /charmaine Yeung MD Signed: 12/21/2021 11:46 Dec 06, 2021 03:30 PM LR MICROBIOLOGY REPORT: [facility] Reporting Lab: [facility] [CLIA# [id number]] [address] [place] [address] Accession [UID]: [id number] [[id number]] Receiv ed: Dec 06, 2021@16:14 Collection sample: BLOOD CUL T BOTTLE(NIRMAL/AERO)Collection date: Dec 06, 2021 15:30 Site/Specimen: BLOOD Provider: JELANI SÁNCHEZ Comment on specimen: LAC Test(s) ordered: BLOOD CULTURE ANAEROBI C....... completed: Dec 12, 2021 06:18 * BACTERIOLOGY FINAL REPORT => Dec 12, 2021 06:1 8 TECH CODE: [id number] Bacteriology Remark(s): NO GROWTH IN 5 DAYS =--=--=--=--=--=--=--=--=--=--=--=--=--= --=--=--=--=--=--=--=--=--=--=--=--=-- Performing Laboratory: Bacteriology Report Performed By: [facility] [CLIA# [id number]] [address] [place] [address] Dec 06, 2021 03:30 PM LR MICROBIOLOGY REPORT: [facility] Reporting Lab: [facility] [CLIA# [id number]] [address] [place] [address] Accession [UID]: [id number] [[id number]] Receiv ed: Dec 06, 2021@16:14 Collection sample: BLOOD CUL T BOTTLE(NIRMAL/AERO)Collection date: Dec 06, 2021 15:30 Site/Specimen: BLOOD Provider: JELANI SÁNCHEZ Comment on specimen: LAC Test(s) ordered: BLOOD CULTURE AEROBIC. ........ completed: Dec 12, 2021 06:17 * BACTERIOLOGY FINAL REPORT => Dec 12, 2021 06:1 7 TECH CODE: [id number] Bacteriology Remark(s): NO GROWTH IN 5 DAYS =--=--=--=--=--=--=--=--=--=--=--=--=--= --=--=--=--=--=--=--=--=--=--=--=--=-- Performing Laboratory: Bacteriology Report Performed By: [facility] [CLIA# [id number]] [address] [place] [address]
--- OUTSIDE RECORDS SUMMARY | 2022-01-19 09:16 | XMS_ITS ---
DAILY HOSPITALIZATION DATA [facility] Encounter Summary Created on:December 11, 2021 Patient:LUCAS MEEK Sex:Male :1950 Author Organization [facility] Address [address] [place] [id number] Support Name Relationship Address Phone YUSRA MEEK Unavailable [address] [place] [address] YUSRA MEEK Unavailable [address] [place] [facility] [place] [address] CLAY MOSLEY Unavailable Unavailable SJ SANTACRUZ Unavailable [...] MEDICARE MEDICARE PART Jun 18, PART A [id number] DO KALYANI PATIENT (WNR) (M) A 2016 13A 1 [place]AS MEDICARE MEDICARE PART Jun 18, PART B [id number] DO KALYANI PATIENT (WNR) (M) B 2016 13A 1 [place] MEDICARE MEDICARE PART Jun 18, PART A [id number] KALYANIDO PATIENT (WNR) (M) A 2017 VH81 2 [place]AS MEDICARE MEDICARE PART Jun 18, PART B [id number] DO KALYANI PATIENT (WNR) (M) B 2017 VH81 2 [place] UNITED MEDICARE MCR(Jun 18 [id number] Luz MEEK PATIENT HEALTHCARE ADVANTAGE NR) 2021 37 0 [facility] (WNR) Selected Encounter This section includes the information on record at [place] for the Encounter. Date/Time Encounter Type Encounter Description Reason Provider Source Dec 11, 2021 07:50 Inpatient Visit DAILY HOSPITALIZATION DATA PM IHE [...] 2022 10:00 AM AMBULATORY - SURGERY [place] [facility] Mar 21, 2022 [...] The data comes from all [place] treatment [facility]. Test Date/Time Test Type Test Details Facility Name October 31, 2021 07:37 AM Consult Order [facility] Cons [employer] Machine Operator's Choice November 15, 2021 10:37 AM Consult Order [facility]-PODIATRY Cons [employer] Operator's Choice Dec 06, 2021 12:52 [...] [place] OUTPATIENT Cons [facility] [employer] Machine Operator's Choice Jan 15, 2022 10:08 PM Consult Order [facility] CARE-PALLIATIVE CARE Cons [employer] Machine Operator's Choice Lab Results: +/- 30 [...] Reference Range Comment Dec 15, 2021 [place] P4 GLU,BUN,CREAT,LYTES,CA Speci men Type: PLASMA 06:43 AM [facility] Comment: Tests performed on [employer] Works (405) SN:[id number] Ordering Provid er: ISATU TODD Report Released Date/Time: Dec 11, 2021 07:42 AM Reporting Lab: [facility] T [facility] [address] [facility] [address] Performing Lab: [facility]T [facility] [address] [facility] [address] UREA NITROGEN 9 7-25 SODIUM 137 135-145 POTASSIUM 3.8 3.5-5.0 CHLORIDE 105 100-110 CARBON DIOXIDE 26 20-30 ANION GAP 6 4-16 GLUCOSE 102 H 65-100 CREATININE 0.64 0.5-1.5 CALCIUM 8.1 L 8.5-10.5 eGFR(CKD-EPI 2020) >90.0 >60 Dec 15, 2021 06:43 AM [facility]T [facility] CBC PROFILE Sp ecimen Type: BLOOD No comment enter ed. Ordering Provid er: ISATU TODD Report Released Date/Time: Dec 10, 2021 07:22 AM Reporting Lab: [facility] [address] [facility] [address] Performing Lab: [facility]T [facility] [address] [facility] [address] WBC 5.7 4.5-11.0 RBC 4.22 L 4.23-5.66 [...] CYTOGENETIC Specimen Type: ESOPHAGUS 02:59 PM VAOC FISH([facility] Comment: ~For T est: CYTOGENETIC FISH([facility]) ~FISH HER 2 NUE, FFPE See full report in Care Team Connect Image display viewer/tab#LAB-Reference Ordering Provid er: NIURKA MILLER Report Released Date/Time: Dec 21, 2021 12:11 PM Reporting Lab: [facility] [address] [facility] [address] Performing Lab: [facility] CYTOGENETIC FISH([facility]) comment Dec 14, 2021 [facility] P4 GLU,BUN,CREAT,LYTES,CA Speci men Type: PLASMA 06:27 AM [facility] Comment: Tests performed on [employer] Works (405) SN:[id number] Ordering Provid er: ISATU TODD Report Released Date/Time: Dec 11, 2021 07:42 AM Reporting Lab: [facility] [address] [facility] [address] Performing Lab: [facility] [address] [facility] [address] UREA NITROGEN 10 7-25 SODIUM 137 135-145 [...] [facility] [address] [facility] [address] Performing Lab: [facility] [address] [facility] [address] WBC 6.0 4.5-11.0 RBC 4.29 4.23-5.66 HGB [...] AM [facility] Comment: Tests performed on [employer] (405) SN:[id number] Ordering Provid er: ISATU TODD Report Released Date/Time: Dec 11, 2021 07:42 AM Reporting Lab: [facility] [address] [facility] [address] Performing Lab: [facility] [address] [facility] [address] UREA NITROGEN 12 7-25 SODIUM 136 135-145 [...] [facility] [address] [facility] [address] Performing Lab: [facility] [address] [facility] [address] WBC 5.6 4.5-11.0 RBC 4.28 4.23-5.66 HGB [...] ABSOLUTE NRBC 0.00 0-0 Dec 12, 2021 [facility] P4 GLU,BUN,CREAT,LYTES,CA Speci men Type: PLASMA 06:21 AM [facility] Comment: Tests performed on [employer] (405) SN:[id number] Ordering Provid er: ISATU TODD Report Released Date/Time: Dec 11, 2021 07:42 AM Reporting Lab: [facility] [address] [facility] [address] Performing Lab: [facility] [address] [facility] [address] UREA NITROGEN 11 7-25 SODIUM 139 135-145 [...] 2021 07:22 AM Reporting Lab: [facility] [address] [facility] [address] Performing Lab: [facility] [address] [facility] [address] WBC 5.5 4.5-11.0 RBC 4.37 4.23-5.66 HGB [...] 0.00 0-0 Dec 12, 2021 06:00 AM GemmyoT [facility] MAGNESIUM Sp ecimen Type: PLASMA Comment: Testin g Performed on [employer] Works (405) SN:[id number] Ordering Provid er: ISATU TODD Report Released Date/Time: Dec 12, 2021 08:24 AM Reporting Lab: [place] [employer] [facility] [address] [facility] [address] Performing Lab: [place] [employer] [address] [facility] [address] MAGNESIUM 1.8 1.6-2.6 Dec 12, 2021 06:00 AM GemmyoT Bearch[facility]OC PHOSPHORUS Sp ecimen Type: PLASMA Comment: Testin g Performed on [employer] (405) SN:[id number] Ordering Provid er: ISATU TODD Report Released Date/Time: Dec 12, 2021 08:24 AM Reporting Lab: [place] [employer] [facility] [address] [facility] [address] Performing Lab: [place] [employer] Bearch[facility] [address] [facility] [address] PHOSPHORUS 3.1 2.5-5.0 Dec 11, 2021 06:15 AM [place] [employer]T Bearch[facility]OC ELECTROLYTES Sp ecimen Type: PLASMA Comment: Tests performed on [employer] (405) SN:[id number] Ordering Provid er: ISATU TODD Report Released Date/Time: Dec 10, 2021 07:22 AM Reporting Lab: [place] [employer] [facility] [address] [facility] [address] Performing Lab: [place] [employer] [facility] [address] [facility] [address] SODIUM 137 135-145 POTASSIUM 4.3 3.5-5.0 CHLORIDE 108 100-110 CARBON DIOXIDE 20 20-30 ANION GAP 9 4-16 Dec 11, 2021 06:15 AM WHITE KahnoodleT [facility] CBC PROFILE Sp ecimen Type: BLOOD Comment: Result s checked Ordering Provid er: ISATU TODD Report Released Date/Time: Dec 10, 2021 07:22 AM Reporting Lab: [place] OMEGAT [facility] [address] [facility] [address] Performing Lab: [facility] [place] OMEGAT [facility] [address] [facility] [address] WBC 5.8 4.5-11.0 RBC 4.37 4.23-5.66 HGB [...] Dec 11, 2021 06:00 AM [facility] PHOSPHORUS Sp ecimen Type: PLASMA Comment: Tests performed on [employer] Works (993) SN:[id number] Results checked Ordering Provid er: ISATU TODD Report Released Date/Time: Dec 11, 2021 07:44 AM Reporting Lab: [facility] DU[facility] [address] [facility] [address] Performing Lab: [place] OMEGAT [facility] [address] [facility] [address] PHOSPHORUS 3.0 2.5-5.0 Dec 10, 2021 08:05 AM [place] [facility] MAGNESIUM Sp ecimen Type: PLASMA Comment: [place] [id number] on Dec 10, 2021@08:31 Tests performed on [employer] Works (405) SN:[id number] Ordering Provid er: ISATU TODD Report Released Date/Time: Dec 10, 2021 07:22 AM Reporting Lab: [place] [facility] [address] [place] [facility] [place] [address] Performing Lab: [place] [facility] [address] [place] [facility] [place] [address] MAGNESIUM 1.7 1.6-2.6 Dec 10, 2021 08:05 AM [place] [facility] PHOSPHORUS Sp ecimen Type: PLASMA Comment: [place] [id number] on Dec 10, 2021@08:31 Tests performed on [employer] (405) SN:[id number] Ordering Provid er: ISATU TODD Report Released Date/Time: Dec 10, 2021 07:22 AM Reporting Lab: [place] [facility] [address] [place] [facility] [place] [address] Performing Lab: [place] [facility] [address] [place] [facility] [place] [address] PHOSPHORUS 1.8 L 2.5-5.0 Dec 10, 2021 08:05 AM [place] UREA NITROGEN Specimen Type: PLASMA [facility] Comment: [place] [id number] on Dec 10, 2021@08:31 Tests performed on [employer] (405) SN:[id number] Ordering Provid er: ISATU TODD Report Released Date/Time: Dec 10, 2021 07:22 AM Reporting Lab: [place] [facility] [address] [place] [facility] [place] [address] Performing Lab: [place] [facility] [address] [place] [facility] [place] [address] UREA NITROGEN 8 7-25 Dec 10, 2021 08:05 AM [place] [facility] GLUCOSE Sp ecimen Type: PLASMA Comment: [place] [id number] on Dec 10, 2021@08:31 Tests performed on [employer] (405) SN:[id number] Ordering Provid er: ISATU TODD Report Released Date/Time: Dec 10, 2021 07:22 AM Reporting Lab: [place] [facility] [address] [facility] [address] Performing Lab: [place] [facility] [address] [facility] [address] GLUCOSE 144 H 65-100 Dec 10, 2021 08:05 [place] CREATININE WITH eGFR Specime n Type: PLASMA AM [facility] PANEL Comment: [place] [id number] on Dec 10, 2021@08:31 Tests performed on [employer] Works (405) SN:[id number] Ordering Provid er: ISATU TODD Report Released Date/Time: Dec 10, 2021 07:22 AM Reporting Lab: [place] [facility] [address] [facility] [address] Performing Lab: [place] [facility] [address] [facility] [address] CREATININE 0.78 0.5-1.5 eGFR(CKD-EPI 2020) >90.0 >60 Dec 10, 2021 08:05 AM [place] [facility] ELECTROLYTES Sp ecimen Type: PLASMA Comment: [place] [id number] on Dec 10, 2021@08:31 Tests performed on Pham [employer]one[employer] (405) SN:[id number] Ordering Provid er: ISATU TODD Report Released Date/Time: Dec 10, 2021 07:22 AM Reporting Lab: [place] [facility] [address] [facility] [address] Performing Lab: [place] [facility] [address] [facility] [address] SODIUM 139 135-145 POTASSIUM 3.7 3.5-5.0 CHLORIDE 107 100-110 CARBON DIOXIDE 24 20-30 ANION GAP 8 4-16 Dec 10, 2021 08:05 AM [place] [facility] CBC PROFILE Sp ecimen Type: BLOOD No comment enter ed. Ordering Provid er: ISATU TODD Report Released Date/Time: Dec 10, 2021 07:22 AM Reporting Lab: [place] [facility] [address] [facility] [address] Performing Lab: [place] [facility] [address] [facility] [address] WBC 7.0 4.5-11.0 RBC 4.54 4.23-5.66 HGB [...] 0.00 0-0 Dec 10, 2021 08:05 AM [facility] CALCIUM Sp ecimen Type: PLASMA Comment: [place] [id number] on Dec 10, 2021@08:31 Tests performed on [employer] (405) SN:[id number] Ordering Provid er: ISATU TODD Report Released Date/Time: Dec 10, 2021 07:22 AM Reporting Lab: [facility] [address] [facility] [address] Performing Lab: [facility] [address] [facility] [address] CALCIUM 8.3 L 8.5-10.5 Dec 09, 2021 06:46 AM [place] [employer] [facility] MAGNESIUM Sp ecimen Type: PLASMA Comment: Tests performed on [employer] (405) SN:[id number] Ordering Provid er: ISATU TODD Report Released Date/Time: Dec 08, 2021 10:23 AM Reporting Lab: [facility] [address] [facility] [address] Performing Lab: [facility] [address] [facility] [address] MAGNESIUM 1.6 1.6-2.6 Dec 09, 2021 [facility] P4 GLU,BUN,CREAT,LYTES,CA Speci men Type: PLASMA 06:46 AM [facility] Comment: Tests performed on [employer] (405) SN:[id number] Ordering Provid er: ISATU TODD Report Released Date/Time: Dec 08, 2021 05:00 PM Reporting Lab: [facility] [address] [facility] [address] Performing Lab: [facility] [address] [facility] [address] UREA NITROGEN 6 L 7-25 SODIUM 134 [...] [facility] [address] [facility] [address] Performing Lab: [facility] [address] [facility] [address] WBC 7.1 4.5-11.0 RBC 4.40 4.23-5.66 HGB [...] 0.00 0-0 Dec 08, 2021 06:39 AM [place] [employer] T [facility] MAGNESIUM Sp ecimen Type: PLASMA Comment: Testin g Performed on [employer] Works (405) SN:[id number] Ordering Provid er: ISATU TODD Report Released Date/Time: Dec 07, 2021 10:32 AM Reporting Lab: [facility] [address] [facility] [address] Performing Lab: [facility] [address] [facility] [address] MAGNESIUM 1.5 L 1.6-2.6 Dec 08, 2021 [place] [employer] T P4 GLU,BUN,CREAT,LYTES,CA Speci men Type: PLASMA 06:39 AM [facility] Comment: Testin g Performed on [employer] Works (405) SN:[id number] Ordering Provid er: ISATU TODD Report Released Date/Time: Dec 07, 2021 10:32 AM Reporting Lab: [employer] T [facility] [address] [facility] [address] Performing Lab: [facility] [address] [facility] [address] UREA NITROGEN 6 L 7-25 SODIUM 136 135-145 POTASSIUM 3.3 L 3.5-5.0 CHLORIDE 104 100-110 CARBON DIOXIDE 22 20-30 ANION GAP 10 4-16 GLUCOSE 133 H 65-100 CREATININE 0.76 0.5-1.5 CALCIUM 8.4 L 8.5-10.5 eGFR(CKD-EPI 2020) >90.0 >60 Dec 08, 2021 06:39 AM WHITE [employer]app IT Up T [facility] CBC PROFILE Sp ecimen Type: BLOOD No comment enter ed. Ordering Provid er: ISATU TODD Report Released Date/Time: Dec 07, 2021 10:32 AM Reporting Lab: [facility] [address] [facility] [address] Performing Lab: [facility] [address] [facility] [address] WBC 8.4 4.5-11.0 RBC 4.75 4.23-5.66 HGB [...] ABSOLUTE NRBC 0.00 0-0 Dec 07, 2021 [facility] P4 GLU,BUN,CREAT,LYTES,CA Speci men Type: PLASMA 06:42 AM [facility] Comment: Tests performed on [employer] Works (405 SN:[id number] Ordering Provid er: PORFIRIO WALTERS Report Released Date/Time: Dec 06, 2021 06:57 PM Reporting Lab: [facility] [address] [facility] [address] Performing Lab: [facility] [address] [facility] [address] UREA NITROGEN 9 7-25 SODIUM 135 135-145 POTASSIUM 3.5 3.5-5.0 CHLORIDE 103 100-110 CARBON DIOXIDE 22 20-30 ANION GAP 10 4-16 GLUCOSE 92 65-100 CREATININE 0.73 0.5-1.5 CALCIUM 8.0 L 8.5-10.5 eGFR(CKD-EPI 2020) >90.0 >60 Dec 07, 2021 06:42 [place] LIVER PROFILE Specimen Typ e: PLASMA AM [facility] Comment: Tests performed on [employer] Ballroom Dancer (405) SN:[id number] Ordering Provid er: PORFIRIO WALTERS Report Released Date/Time: Dec 06, 2021 06:57 PM Reporting Lab: [facility] [address] [facility] [address] Performing Lab: [facility] [address] [facility] [address] PROTEIN, TOTAL 5.7 L 6.0-8.5 ALBUMIN 2.4 L 3.2-5.0 BILIRUBIN, TOTAL 0.4 0.2-1.2 ALKALINE PHOSPHATASE 109 40-150 ALT(SGPT) 10 7-52 AST(SGOT) 15 5-34 FIB-4 SCORE 1.92 <2.67 Dec 07, 2021 06:42 AM [facility] CBC PROFILE Specimen Type: BLOOD [facility] No comment enter ed. Ordering Provid er: PORFIRIO WALTERS Report Released Date/Time: Dec 06, 2021 06:57 PM Reporting Lab: [facility] [address] [facility] [address] Performing Lab: [facility] [address] [facility] [address] WBC 5.7 4.5-11.0 RBC 4.15 L 4.23-5.66 [...] VAMROC %) AUTOMATED Comment: Tests performed on [employer]hy Works (405) SN:[id number] Ordering Provid er: ISATU TODD Report Released Date/Time: Dec 07, 2021 10:28 AM Reporting Lab: [place] [facility] [address] [facility] [address] Performing Lab: [place] [facility] [address] [facility] [address] RETICULOCYTES (%) AUTOMATED 1.23 0. 6-2.0 RETICULOCYTES (ABS) AUTOMATED 0.052 0.030-0.090 Dec 06, 2021 09:45 [place] MRSA SURVL NARES Specimen Ty pe: NARES PM [facility] DNA No comment enter ed. Ordering Provid er: ALVARO VARGHESE Report Released Date/Time: Dec 07, 2021 02:20 AM Reporting Lab: [place] [facility] [address] [facility] [address] Performing Lab: [place] [facility] [address] [facility] [address] MRSA SURVL NARES DNA NEGATIVE NEGATIVE Dec 06, 2021 06:00 [place] URINALYSIS W/REFLEX TO Speci men Type: URINE PM [facility] CULTURE No comment enter ed. Ordering Provid er: JELANI SÁNCHEZ Report Released Date/Time: Dec 06, 2021 11:57 AM Reporting Lab: [place] [facility] [address] [facility] [address] Performing Lab: [place] [facility] [address] [facility] [address] URINE COLOR Arlin YELLOW SPECIFIC GRAVITY 1.029 [...] 21, RIVER VARIANT Comment: https://www.cdc.gov/coronavirus/2019-ncov/cases-updates/variant- surveillance/variant-info.html The [employer] SARS CoV 2 [employer] Research Assay-GX is a next-generation sequencing (NGS) assa 2021 [facility] SEQUENCING y that determine s the complete genome sequence of the SARS-CoV-2 virus. The assay contains variant-tolerant primers to broaden and improve the coverage for variant detection and increase the sensitivity 12:00 [facility] PNL(WH) of the panel to enable detection from lower viral titer samples. The assay is run on the [employer] Sequencer, which performs automated library preparation, sequencing, analysis, and reporting. PM The sequence an alysis includes determination of viral phylogenetic lineage by comparison to the reference strain Wuhan-Hu-1, GenBank: [id number]. Sequence determination may not be possible owing [...] 2021 01:13 PM Reporting Lab: [facility] [address] [facility] [address] Performing Lab: [facility] [address] [facility] [address] SARS-CoV-2 CLADE() 22C (OMICRON) SARS-CoV-2 LINEAGE() BA.2.12.1 Dec 06, 2021 12:00 [facility] COVID-19 AG SCREEN Specimen Type: NASAL CAVITY PM [facility] PANEL BINAX(405) Comment: Testi ng Performed By: Mike Briscoe Ordering Provid er: JELANI SÁNCHEZ Report Released Date/Time: Dec 08, 2021 08:23 AM Reporting Lab: [facility] [address] [facility] [address] Performing Lab: [facility] [address] [facility] [address] COVID-19 AG SCRN(wrj BINAX) POSITIVE HH NE G Dec 06, 2021 12:00 PM [facility] LIVER PROFILE Sp ecimen Type: PLASMA Comment: Testin g Performed on Pham Ballroom Dancer (405) SN:[id number] Ordering Provid er: JELANI SÁNCHEZ Report Released Date/Time: Dec 06, 2021 11:57 AM Reporting Lab: [facility] [address] [facility] [address] Performing Lab: [facility] [address] [facility] [address] PROTEIN, TOTAL 6.6 6.0-8.5 ALBUMIN 2.8 L 3.2-5.0 BILIRUBIN, TOTAL 0.6 0.2-1.2 ALKALINE PHOSPHATASE 134 40-150 ALT(SGPT) 13 7-52 AST(SGOT) 18 5-34 FIB-4 SCORE 1.94 <2.67 Dec 06, 2021 12:00 [facility] Sp ecimen Type: PLASMA Comment: Tests performed on Pham Ballroom Dancer (405) SN:[id number] Ordering Provid er: JELANI SÁNCHEZ Report Released Date/Time: Dec 06, 2021 11:57 AM Reporting Lab: [facility] [address] [facility] [address] Performing Lab: [facility]T [facility] [address] [facility] [address] TROPONIN II 0.03 0.00-0.29 Dec 06, 2021 [facility]T P4 GLU,BUN,CREAT,LYTES,CA Speci men Type: PLASMA 12:00 PM [facility] Comment: Testin g Performed on Pham Ballroom Dancer (405) SN:[id number] Ordering Provid er: JELANI SÁNCHEZ Report Released Date/Time: Dec 06, 2021 11:57 AM Reporting Lab: [place] T [facility] [address] [facility] [address] Performing Lab: [facility]T [facility] [address] [facility] [address] UREA NITROGEN 13 7-25 SODIUM 138 135-145 POTASSIUM 3.8 3.5-5.0 CHLORIDE 103 100-110 CARBON DIOXIDE 23 20-30 ANION GAP 12 4-16 GLUCOSE 105 H 65-100 CREATININE 0.90 0.5-1.5 CALCIUM 8.7 8.5-10.5 eGFR(CKD-EPI 2020) >90.0 >60 Dec 06, 2021 12:00 PM [facility] BNP(P) Sp ecimen Type: PLASMA Comment: Tests performed on Pham Ballroom Dancer (405) SN:[id number] Ordering Provid er: JELANI SÁNCHEZ Report Released Date/Time: Dec 06, 2021 11:57 AM Reporting Lab: [facility] [address] [facility] [address] Performing Lab: [facility] [address] [facility] [address] BNP(P) 224.8 H 10-100 Dec 06, 2021 [facility] [place] COVID-19+FLU/RSV DIAGNOSTIC Spe cimen Type: NASOPHARYNX 12:00 PM [facility] PANEL(405) Comment: Tests performed on XM Radioxpert (405) Critical results called to and read back by: ALESHIA WILKINSON RN 12/06/21 @ 1312 Ordering Provid er: JELANI SÁNCHEZ Report Released Date/Time: Dec 06, 2021 11:57 AM Reporting Lab: [facility] [address] [facility] [address] Performing Lab: [place] [facility] [address] [facility] [address] FLU A(PCR) NEGATIVE NEGATIVE FLU B(PCR) NEGATIVE NEGATIVE RSV(PCR) NEGATIVE NEGATIVE COVID-19([id number]) DETECTED HH NO T DETECTED Dec 06, 2021 12:00 [facility] Sp ecimen Type: BLOOD No comment enter ed. Ordering Provid er: JELANI SÁNCHEZ Report Released Date/Time: Dec 06, 2021 11:57 AM Reporting Lab: [facility] [address] [facility] [address] Performing Lab: [facility] [address] [facility] [address] WBC 7.2 4.5-11.0 RBC 4.86 4.23-5.66 HGB [...] 2021 07:56 /min mm[Hg] [facility] Dec 11, 3 WHITE 2021 07:49 [facility] Dec 11, 98.3 F 98 127/83 18 /min 97 % 0 WHITE 2021 02:50 /min mm[Hg] [facility] Dec 11, 0 WHITE 2021 01:57 [facility] Dec 11, 0 WHITE 2021 08:49 [...] took place. Date/Time Smoking Status/Tobacco Use Comment [facility] Apr 01, 2020 01:16 PM QUIT TOBACCO [...] TOBACCO USE IN PAST YEAR [facility] Mar 16, 2016 12:50 PM V1-PT [...] W/WO CONTRAST: MARYELLEN LONG LUCAS LARES N [id number] -1950 [facility] Exm Date: DEC 13, 2021@12:57 Req Phys: ISATU TODD Loc: OP Unknown/0 12-15-2021@13:20 Img Loc: MRI IMAGING ([facility]OS) Service: ZGENERAL MEDICINE (Case [id number] COMPLETE) MRI ABDOMEN W/WO CONTRAST (M RI Detailed) CPT:96895 Reason for Study: further characterization of a [...] new lyphadenopathy REQUESTING MD: Isatu Todd PAGER: [phone] PHONE: [phone] Weight: 232.2 lb [105.32 kg] (12/12/2021 05:00) [...] will need to arrange for a car pick up driver to take him/her home after the [...] 15, 2021 Date Verified: DEC 15, 2021 Management Recruiter E-Sig:/ES/MARYELLEN LONG Report: MRI ABDOMEN W/WO CONTRAST [...] MALIGNANCY Primary Interpreting Staff: Staff AMELIA THOMAS (Management Recruiter) / Dec 10, 2021 09:[address] ABDOMEN & PELVIS: [facility] LUCAS [facility]EEK N [id number] -1950 M [facility] Exm Date: DEC 10, 2021@09:30 Req Phys: ISATU TODD Loc: 1S MED/12-10@10:57 Img Loc: CT SCAN (OOS) Service: [facility] MEDICINE (Case [id number] COMPLETE) CT ABD & PELVIS WITHOUT CONT RAST (CT Detailed) CPT:43257 Reason for Study: 71 yo male with [...] INDEX - NO HEIGHTS FOUND Pager number: [phone] STAT orders MUST be call ed to RADIOLOGY [phone] to speak to the appropriate diesel maintenance technician. Report Status: Verified Date Reported: DEC 10, 2021 Date Verified: DEC 10, 2021 Management Recruiter E-Sig: Report: EXAM: CT abdomen and pelvis [...] ph nodes. READING PHYSICIAN: Ramone Munoz D.O. -[phone] 12/10/2021 10:55 EDT [facility] National Teleradiology Program [phone] (For Medical Practitioner Use Only ) [address] [facility], [facility] [address], [address] [place] [address] Attention Patients / Veterans: If you have ques tions or concerns about these test results, please contact your o rdering provider or primary care team. Primary Diagnostic Code: SIGNIFICANT ABNORMALIT Y, ATTN NEEDED Primary Interpreting Staff: RADIOLOGY,OUTSIDE SERVICE, Staff Physician / Dec 09, 2021 07:34 AM BASW (MODIFIED): JESSIE CHENEY TARA ER JCT LUCAS MEEK [id number] -1950 M [facility] Exm Date: DEC 09, 2021@07:34 Req Phys: ISATU TODD Yao Manjarrez Loc: 1S MED/12-09@11:26 Img Loc: XRAY (OOS) Service: [facility] MEDICINE (Case [id number] COMPLETE) BASW (MODIFIED) (RAD Detaile d) CPT:92590 Contrast Media : Barium Reason for Study: dysphagia ?esophageal spasm Clinical History: Report Status: Verified Date Reported: DEC 09, 2021 Date Verified: DEC 09, 2021 Management Recruiter E-Sig:/ES/JESSIE CHENEY Report: BASW (MODIFIED) , 12/09/2021 [...] REQUIRED Primary Interpreting Staff: JESSIE CHENEY, RADIOLOGIST (Management Recruiter) /TLC Dec 06, 2021 12:[address] CHEST (INCLUDES ADRENALS): [facility] [id number] -1950 [facility] Ex[facility] Date: DEC 06, 2021@12:59 Req Phys: GONZALOJELANI Loc: [facility] ED DAYS M 1RD (Req'g Loc) Img Loc: CT SCAN (OOS) Service: Unknown (Case [id number] COMPLETE) CT THORAX W/O CONT (CT Detai led) CPT:65909 Reason for Study: Opacification right chest Clinical History: No contrast allergy BUN: 13 (12/06/21 12:00) CREATI: 0.90 (12/06/21 12:00) eGFR 05/16/21 09:43 52 L Weight: 232.6 lb [105.51 kg] (12/06/2021 11:40) BODY MASS INDEX - NO HEIGHTS FOUND Pager number: [phone] STAT orders MUST be called t o RADIOLOGY [phone] to speak to the appropriate diesel maintenance technician. Indications - Other: Opacification right chest, covid positive, lung cancer histo Report Status: Verified Date Reported: DEC 06, 2021 Date Verified: DEC 06, 2021 Management Recruiter E-Sig:/ES/JESSIE CHENEY Report: CT THORAX W/O CONT [...] REQUIRED Primary Interpreting Staff: JESSIE CHENEY, RADIOLOGIST (Management Recruiter) Primary Interpreting Resident: PRINCE CHAMPION, Resident /BR Dec 06, 2021 11:58 AM CHEST SINGLE VIEW: JESSIE CHENEYT LUCAS MEEK N [id number] -1950 M [facility] Exm Date: DEC 06, 2021@11:58 Req Phys: JELANI SÁNCHEZ Pat Loc: [facility] ED DAYS M 1RD (Req'g Loc) Img Loc: XRAY (OOS) Service: Unknown (Case [id number] COMPLETE) CHEST SINGLE VIEW (RAD Detai led) CPT:83228 Proc Modifiers : PORTABLE EXAM Reason for Study: SOB, home covid test positive Clinical History: Report Status: Verified Date Reported: DEC 06, 2021 Date Verified: DEC 06, 2021 Management Recruiter E-Sig:/ES/JESSIE CHENEY Report: Exam type: Chest x-ray [...] REQUIRED Primary Interpreting Staff: JESSIE CHENEY, RADIOLOGIST (Management Recruiter) /TLC Pathology Reports: +/- 30 days of [...] Reporting Lab: [facility] [CLIA# [id number]] [address] [place] [address] - - - - - - [...] automatically d ocumented from SURGERY package case #[id number] Field (#32) PRINCIPAL PRE-OP DIAGNOSIS, (#.72) OTHER [...] automatically d ocumented from SURGERY package case #[id number] Field (#34) PRINCIPAL POST-OP DIAG, (#.74) OTHER [...] Label: Lucas Meek Paperwork: Lucas Meek Cassette: [id number];..;KALYANI;.;405;[id number] Specimen is labeled: ES bx Received in formalin are several pieces of pale boyd and brown tissue, 1.2 x 0.7 cm in aggregate. Submitted entirely in 1 cassette [id number];..;KALYANI;.;405;[id number] SAW 12/15/2021 Microscopic exam: *+* MODIFIED REPORT *+* (Last modified: JAN 03, 2022@09:30:20 typed by NIURKA WADDELL) DIAGNOSIS: A. 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 Kendell long. TIARA Coombs was notified on 12/21/21. Modified on 01/03/22 to include report from [facility] stating that tumor is NEGATIVE for her2/ matheus amplification. The attending pathologist who signature mansoor ears on this report has reviewed all diagnostic slides and has edited t he gross and/or microscopic portion of this report in rendering the final pathologic diagnosis. [address] [address] CPT: 04232 /emely/ NIURKA Yeung MD Signed Jan 03, 2022@10:28 Performing Laboratory: Surgical Pathology Report Performed By: [facility] [CLIA# [id number]] [address] [place] [address] $FTR - - - - - [...] - - LUCAS MEEK STANDARD FORM 515 ID:[id number] SEX:M :1950 AGE: 71 LOC: [facility] END PCP: Isatu Todd /emely/ NIURKA MILLER Staff Signed: 01/03/2022 10:28 Dec 21, 2021 11:46 AM LR SURGICAL PATHOLOGY REPORT: STEFANY MILLER [facility] LOCAL TITLE: LR SURGICAL PATHOLOGY REPORT [facility] STANDARD TITLE: PATHOLOGY REPORT DATE OF NOTE: DEC 21, 2021@11:46:59 ENTRY DATE: DEC 21, 2021@11:46:59 AUTHOR: NIURKA MILLER EXP COSIGNER: URGENCY: STATUS: COMPLETED $APHDR Reporting Lab: [facility] [CLIA# [id number]] [address] [place] [address] - - - - - - [...] automatically d ocumented from SURGERY package case #[id number] Field (#32) PRINCIPAL PRE-OP DIAGNOSIS, (#.72) OTHER [...] automatically d ocumented from SURGERY package case #[id number] Field (#34) PRINCIPAL POST-OP DIAG, (#.74) OTHER [...] Label: Lucas Meek Paperwork: Lucas Meek Cassette: [id number];..;KALYANI;.;405;[id number] Specimen is labeled: ES bx Received in formalin are several pieces of pale boyd and brown tissue, 1.2 x 0.7 cm in aggregate. Submitted entirely in 1 cassette [id number];..;KALYANI;.;405;[id number] SAW 12/15/2021 Microscopic exam: DIAGNOSIS: A. 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 Kendell long. TIARA Coombs was notified on 12/21/21. The attending pathologist who signature mansoor ears on this report has reviewed all diagnostic slides and has edited t he gross and/or microscopic portion of this report in rendering the final pathologic diagnosis. [address] [address] CPT: 76633 /emely/ NIURKA Yeung MD Signed Dec 21, 2021@11:46 Performing Laboratory: Surgical Pathology Report Performed By: [facility] [CLIA# [id number]] [address] [place] [address] $FTR - - - - - [...] - - LUCAS MEEK STANDARD FORM 515 ID:[id number] SEX:M :1950 AGE: 71 LOC: [facility] END PCP: Isatu Todd /charmaine Yeung MD Signed: 12/21/2021 11:46 Dec 06, 2021 03:30 PM LR MICROBIOLOGY REPORT: [facility] Reporting Lab: [facility] [CLIA# [id number]] [address] [place] [address] Accession [UID]: [id number] [[id number]] Receiv ed: Dec 06, 2021@16:14 Collection sample: BLOOD CUL T BOTTLE(NIRMAL/AERO)Collection date: Dec 06, 2021 15:30 Site/Specimen: BLOOD Provider: JELANI SÁNCHEZ Comment on specimen: LAC Test(s) ordered: BLOOD CULTURE ANAEROBI C....... completed: Dec 12, 2021 06:18 * BACTERIOLOGY FINAL REPORT => Dec 12, 2021 06:1 8 TECH CODE: [id number] Bacteriology Remark(s): NO GROWTH IN 5 DAYS =--=--=--=--=--=--=--=--=--=--=--=--=--= --=--=--=--=--=--=--=--=--=--=--=--=-- Performing Laboratory: Bacteriology Report Performed By: [facility] [CLIA# [id number]] [address] [place] [address] Dec 06, 2021 03:30 PM LR MICROBIOLOGY REPORT: [facility] Reporting Lab: [facility] [CLIA# [id number]] [address] [place] [address] Accession [UID]: [id number] [[id number]] Receiv ed: Dec 06, 2021@16:14 Collection sample: BLOOD CUL T BOTTLE(NIRMAL/AERO)Collection date: Dec 06, 2021 15:30 Site/Specimen: BLOOD Provider: JELANI SÁNCHEZ Comment on specimen: LAC Test(s) ordered: BLOOD CULTURE AEROBIC. ........ completed: Dec 12, 2021 06:17 * BACTERIOLOGY FINAL REPORT => Dec 12, 2021 06:1 7 TECH CODE: [id number] Bacteriology Remark(s): NO GROWTH IN 5 DAYS =--=--=--=--=--=--=--=--=--=--=--=--=--= --=--=--=--=--=--=--=--=--=--=--=--=-- Performing Laboratory: Bacteriology Report Performed By: [facility] [CLIA# [id number]] [address] [place] [address]
--- OUTSIDE RECORDS SUMMARY | 2022-01-19 09:16 | XMS_ITS ---
DAILY HOSPITALIZATION DATA [facility] Encounter Summary Created on:December 11, 2021 Patient:LUCAS MEEK Sex:Male :1950 Author Organization [facility] Address [address] [place] [id number] Support Name Relationship Address Phone YUSRA MEEK Unavailable [address] [place] [address] YUSRA MEEK Unavailable [address] [place] [facility] [place] [address] CLAY MOSLEY Unavailable Unavailable SJ SANTACRUZ Unavailable [...] MEDICARE MEDICARE PART Jun 18, PART A [id number] DO KALYANI PATIENT (WNR) (M) A 2016 13A 1 [place] MEDICARE MEDICARE PART Jun 18, PART B [id number] DO KALYANI PATIENT (WNR) (M) B 2016 13A 1 [place] MEDICARE MEDICARE PART Jun 18, PART A [id number] KALYANIDO PATIENT (WNR) (M) A 2017 VH81 2 [place] MEDICARE MEDICARE PART Jun 18, PART B [id number] DO KALYANI PATIENT (WNR) (M) B 2017 VH81 2 [place] UNITED MEDICARE MCR(Jun 18 [id number] Luz MEEK PATIENT HEALTHCARE ADVANTAGE NR) 2021 37 0 [facility] (WNR) Selected Encounter This section includes the information on record at [place] for the Encounter. Date/Time Encounter Type Encounter Description Reason Provider Source Dec 11, 2021 07:49 Inpatient Visit DAILY HOSPITALIZATION DATA PM IHE [...] 2022 10:00 AM AMBULATORY - SURGERY [place] [facility] Mar 21, 2022 10:30 AM AMBULATORY [...] The data comes from all [place] treatment [facility]. Test Date/Time Test Type Test Details Facility Name October 31, 2021 07:37 AM Consult Order COMMUNITY CARE-EGD [facility] Cons Geophysical E Logger's Choice November 15, 2021 10:37 AM Consult Order [facility] CARE-PODIATRY Cons Geophysical E Logger's Choice Dec 06, 2021 12:52 PM Pharmacy [...] OUTPATIENT Cons [facility] Geophysical E Logger's Choice Jan 15, 2022 10:08 PM Consult Order [facility] CARE-PALLIATIVE CARE Cons Geophysical E Logger's Choice Lab Results: +/- 30 days of [...] Reference Range Comment Dec 15, 2021 [place] P4 GLU,BUN,CREAT,LYTES,CA Speci men Type: PLASMA 06:43 AM [facility] Comment: Tests performed on [employer] (405) SN:[id number] Ordering Provid er: ISATU TODD Report Released Date/Time: Dec 11, 2021 07:42 AM Reporting Lab: [facility] T [facility] [address] [facility] [address] Performing Lab: [facility] [address] [facility] [address] UREA NITROGEN 9 7-25 SODIUM 137 135-145 POTASSIUM 3.8 3.5-5.0 CHLORIDE 105 100-110 CARBON DIOXIDE 26 20-30 ANION GAP 6 4-16 GLUCOSE 102 H 65-100 CREATININE 0.64 0.5-1.5 CALCIUM 8.1 L 8.5-10.5 eGFR(CKD-EPI 2020) >90.0 >60 Dec 15, 2021 06:43 AM [facility] CBC PROFILE Sp ecimen Type: BLOOD No comment enter ed. Ordering Provid er: ISATU TODD Report Released Date/Time: Dec 10, 2021 07:22 AM Reporting Lab: [facility] [address] [facility] [address] Performing Lab: [facility] [address] [facility] [address] WBC 5.7 4.5-11.0 RBC 4.22 L 4.23-5.66 [...] 2 NUE, FFPE See full report in [employer] Image display viewer/tab#LAB-Reference Ordering Provid er: NIURKA MILLER Report Released Date/Time: Dec 21, 2021 12:11 PM Reporting Lab: [facility] [address] [facility] [address] Performing Lab: [facility] CYTOGENETIC FISH([facility]) comment Dec 14, 2021 [facility] P4 GLU,BUN,CREAT,LYTES,CA Speci men Type: PLASMA 06:27 AM [facility] Comment: Tests performed on [employer] (405) SN:[id number] Ordering Provid er: ISATU TODD Report Released Date/Time: Dec 11, 2021 07:42 AM Reporting Lab: [facility] [address] [facility] [address] Performing Lab: [facility] [address] [facility] [address] UREA NITROGEN 10 7-25 SODIUM 137 135-145 [...] Lab: [facility] [address] [facility] [address] Performing Lab: [facility] [address] [facility] [address] WBC 6.0 4.5-11.0 RBC 4.29 4.23-5.66 HGB [...] [facility] [place] [place] Comment: Tests performed on [employer] (405) SN:[id number] Ordering Provid er: ISATU TODD Report Released Date/Time: Dec 11, 2021 07:42 AM Reporting Lab: [facility] [address] [facility] [address] Performing Lab: [facility] [address] [facility] [address] UREA NITROGEN 12 7-25 SODIUM 136 135-145 [...] Lab: [facility] [address] [facility] [address] Performing Lab: [facility] [address] [facility] [address] WBC 5.6 4.5-11.0 RBC 4.28 4.23-5.66 HGB [...] [facility] [place] Comment: Tests performed on [employer] (405) SN:[id number] Ordering Provid er: ISATU TODD Report Released Date/Time: Dec 11, 2021 07:42 AM Reporting Lab: [facility] [address] [facility] [address] Performing Lab: [facility] [address] [facility] [address] UREA NITROGEN 11 7-25 SODIUM 139 135-145 [...] AM Reporting Lab: [facility] [address] [facility] [address] Performing Lab: [facility] [address] [facility] [address] WBC 5.5 4.5-11.0 RBC 4.37 4.23-5.66 HGB [...] 0.00 0-0 Dec 12, 2021 06:00 AM RepairogenT [facility] MAGNESIUM Sp ecimen Type: PLASMA Comment: Testin g Performed on [employer] (405) SN:[id number] Ordering Provid er: ISATU TODD Report Released Date/Time: Dec 12, 2021 08:24 AM Reporting Lab: [place] Tim[facility]T [facility] [address] [facility] [address] Performing Lab: [facility] [place] [facility]T [facility] [address] [facility] [address] MAGNESIUM 1.8 1.6-2.6 Dec 12, 2021 06:00 AM RepairogenT [facility] PHOSPHORUS Sp ecimen Type: PLASMA Comment: Testin g Performed on [employer] (405) SN:[id number] Ordering Provid er: ISATU TODD Report Released Date/Time: Dec 12, 2021 08:24 AM Reporting Lab: [place] TimetricT [facility] [address] [facility] [address] Performing Lab: [place] [employer] [facility] [address] [facility] [address] PHOSPHORUS 3.1 2.5-5.0 Dec 11, 2021 06:15 AM [employer] [place] [employer]T [facility] ELECTROLYTES Sp ecimen Type: PLASMA Comment: Tests performed on [employer] (405) SN:[id number] Ordering Provid er: ISATU TODD Report Released Date/Time: Dec 10, 2021 07:22 AM Reporting Lab: [place] TimetricT [facility] [address] [facility] [address] Performing Lab: [place] Tim[facility]T [facility] [address] [facility] [address] SODIUM 137 135-145 POTASSIUM 4.3 3.5-5.0 CHLORIDE 108 100-110 CARBON DIOXIDE 20 20-30 ANION GAP 9 4-16 Dec 11, 2021 06:15 AM [place] HolidogT [facility] CBC PROFILE Sp ecimen Type: BLOOD Comment: Result s checked Ordering Provid er: ISATU TODD Report Released Date/Time: Dec 10, 2021 07:22 AM Reporting Lab: [place] OMEGAT [facility] [address] [facility] [address] Performing Lab: [place] OMEGAT [facility] [address] [facility] [address] WBC 5.8 4.5-11.0 RBC 4.37 4.23-5.66 HGB [...] ecimen Type: PLASMA Comment: Tests performed on [employer] (929) SN:[id number] Results checked Ordering Provid er: ISATU TODD Report Released Date/Time: Dec 11, 2021 07:44 AM Reporting Lab: [facility] [place] [facility] [address] [facility] [address] Performing Lab: [place] OMEGAT [facility] [address] [facility] [address] PHOSPHORUS 3.0 2.5-5.0 Dec 10, 2021 08:05 AM [place] [facility] MAGNESIUM Sp ecimen Type: PLASMA Comment: [place] [id number] on Dec 10, 2021@08:31 Tests performed on [employer] (405) SN:[id number] Ordering Provid er: ISATU TODD Report Released Date/Time: Dec 10, 2021 07:22 AM Reporting Lab: [place] [facility] [address] [facility] [place] [address] Performing Lab: [place] [facility] [address] [facility] [place] [address] MAGNESIUM 1.7 1.6-2.6 Dec 10, 2021 08:05 AM [place] [facility] PHOSPHORUS Sp ecimen Type: PLASMA Comment: [place] [id number] on Dec 10, 2021@08:31 Tests performed on [employer] (405) SN:[id number] Ordering Provid er: ISATU TODD Report Released Date/Time: Dec 10, 2021 07:22 AM Reporting Lab: [place] [facility] [address] [facility] [place] [address] Performing Lab: [place] [facility] [address] [facility] [place] [address] PHOSPHORUS 1.8 L 2.5-5.0 Dec 10, 2021 08:05 AM [place] UREA NITROGEN Specimen Type: PLASMA [facility] Comment: [place] [id number] on Dec 10, 2021@08:31 Tests performed on [employer] (405) SN:[id number] Ordering Provid er: ISATU TODD Report Released Date/Time: Dec 10, 2021 07:22 AM Reporting Lab: [place] [facility] [address] [facility] [place] [address] Performing Lab: [place] [facility] [address] [facility] [place] [address] UREA NITROGEN 8 7-25 Dec 10, 2021 08:05 AM [place] [facility] GLUCOSE Sp ecimen Type: PLASMA Comment: [place] [id number] on Dec 10, 2021@08:31 Tests performed on [employer] (405) SN:[id number] Ordering Provid er: ISATU TODD Report Released Date/Time: Dec 10, 2021 07:22 AM Reporting Lab: [place] [facility] [address] [facility] [address] Performing Lab: [place] [facility] [address] [facility] [address] GLUCOSE 144 H 65-100 Dec 10, 2021 08:05 AM [place] [facility] CALCIUM Sp ecimen Type: PLASMA Comment: [place] [id number] on Dec 10, 2021@08:31 Tests performed on [employer] (405) SN:[id number] Ordering Provid er: ISATU TODD Report Released Date/Time: Dec 10, 2021 07:22 AM Reporting Lab: [place] [facility] [address] [facility] [address] Performing Lab: [place] [facility] [address] [facility] [address] CALCIUM 8.3 L 8.5-10.5 Dec 10, 2021 08:05 [place] CREATININE WITH eGFR Specime n Type: PLASMA AM [facility] PANEL Comment[place] [id number] on Dec 10, 2021@08:31 Tests performed on [employer] (405) SN:[id number] Ordering Provid er: ISATU TODD Report Released Date/Time: Dec 10, 2021 07:22 AM Reporting Lab: [place] [facility] [address] [facility] [address] Performing Lab: [place] [facility] [address] [facility] [address] CREATININE 0.78 0.5-1.5 eGFR(CKD-EPI 2020) >90.0 >60 Dec 10, 2021 08:05 AM [place] [facility] ELECTROLYTES Sp ecimen Type: PLASMA Comment: [place] [id number] on Dec 10, 2021@08:31 Tests performed on [employer] (405) SN:[id number] Ordering Provid er: ISATU TODD Report Released Date/Time: Dec 10, 2021 07:22 AM Reporting Lab: [place] [facility] [address] [facility] [address] Performing Lab: [place] [facility] [address] [facility] [address] SODIUM 139 135-145 POTASSIUM 3.7 3.5-5.0 CHLORIDE 107 100-110 CARBON DIOXIDE 24 20-30 ANION GAP 8 4-16 Dec 10, 2021 08:05 AM [facility] CBC PROFILE Sp ecimen Type: BLOOD No comment enter ed. Ordering Provid er: ISATU TODD Report Released Date/Time: Dec 10, 2021 07:22 AM Reporting Lab: [place] OMEGAT [facility] [address] [facility] [address] Performing Lab: [place] OMEGAT [facility] [address] [facility] [address] WBC 7.0 4.5-11.0 RBC 4.54 4.23-5.66 HGB [...] 0.00 0-0 Dec 09, 2021 06:46 AM [facility] MAGNESIUM Sp ecimen Type: PLASMA Comment: Tests performed on [employer] (869) SN:[id number] Ordering Provid er: ISATU TODD Report Released Date/Time: Dec 08, 2021 10:23 AM Reporting Lab: [facility] [address] [facility] [address] Performing Lab: [facility] [address] [facility] [address] MAGNESIUM 1.6 1.6-2.6 Dec 09, 2021 [facility] P4 GLU,BUN,CREAT,LYTES,CA Speci men Type: PLASMA 06:46 AM [facility] Comment: Tests performed on [employer] (405) SN:[id number] Ordering Provid er: ISATU TODD Report Released Date/Time: Dec 08, 2021 05:00 PM Reporting Lab: [facility] [address] [facility] [address] Performing Lab: [facility] [address] [facility] [address] UREA NITROGEN 6 L 7-25 SODIUM 134 [...] Lab: [facility] [address] [facility] [address] Performing Lab: [facility] [address] [facility] [address] WBC 7.1 4.5-11.0 RBC 4.40 4.23-5.66 HGB [...] 0-0 Dec 08, 2021 06:39 AM [facility] MAGNESIUM Sp ecimen Type: PLASMA Comment: Testin g Performed on [employer] (405) SN:[id number] Ordering Provid er: ISATU TODD Report Released Date/Time: Dec 07, 2021 10:32 AM Reporting Lab: [facility] [address] [facility] [address] Performing Lab: [facility] [address] [facility] [address] MAGNESIUM 1.5 L 1.6-2.6 Dec 08, 2021 06:39 AM [facility] CBC PROFILE Sp ecimen Type: BLOOD No comment enter ed. Ordering Provid er: ISATU TODD Report Released Date/Time: Dec 07, 2021 10:32 AM Reporting Lab: [facility] [address] [facility] [address] Performing Lab: [facility] [address] [facility] [address] WBC 8.4 4.5-11.0 RBC 4.75 4.23-5.66 HGB [...] ABSOLUTE NRBC 0.00 0-0 Dec 08, 2021 [facility] P4 GLU,BUN,CREAT,LYTES,CA Speci men Type: PLASMA 06:39 AM [facility] Comment: Testin g Performed on [employer] Your[employer]MD (405) SN:[id number] Ordering Provid er: ISATU TODD Report Released Date/Time: Dec 07, 2021 10:32 AM Reporting Lab: [facility] [address] [facility] [address] Performing Lab: [facility] [address] [facility] [address] UREA NITROGEN 6 L 7-25 SODIUM 136 135-145 POTASSIUM 3.3 L 3.5-5.0 CHLORIDE 104 100-110 CARBON DIOXIDE 22 20-30 ANION GAP 10 4-16 GLUCOSE 133 H 65-100 CREATININE 0.76 0.5-1.5 CALCIUM 8.4 L 8.5-10.5 eGFR(CKD-EPI 2020) >90.0 >60 Dec 07, 2021 [facility] P4 GLU,BUN,CREAT,LYTES,CA Speci men Type: PLASMA 06:42 AM [facility] Comment: Tests performed on [employer]am Your[employer]MD (405) SN:[id number] Ordering Provid er: PORFIRIO WALTERS Report Released Date/Time: Dec 06, 2021 06:57 PM Reporting Lab: [place] TimetricT [facility] [address] [facility] [address] Performing Lab: [facility] [address] [facility] [address] UREA NITROGEN 9 7-25 SODIUM 135 135-145 POTASSIUM 3.5 3.5-5.0 CHLORIDE 103 100-110 CARBON DIOXIDE 22 20-30 ANION GAP 10 4-16 GLUCOSE 92 65-100 CREATININE 0.73 0.5-1.5 CALCIUM 8.0 L 8.5-10.5 eGFR(CKD-EPI 2020) >90.0 >60 Dec 07, 2021 06:42 [place] LIVER PROFILE Specimen Typ e: PLASMA AM [facility] Comment: Tests performed on [employer] (405) SN:[id number] Ordering Provid er: PORFIRIO WALTERS Report Released Date/Time: Dec 06, 2021 06:57 PM Reporting Lab: [facility] [address] [facility] [address] Performing Lab: [facility] [address] [facility] [address] PROTEIN, TOTAL 5.7 L 6.0-8.5 ALBUMIN 2.4 L 3.2-5.0 BILIRUBIN, TOTAL 0.4 0.2-1.2 ALKALINE PHOSPHATASE 109 40-150 ALT(SGPT) 10 7-52 AST(SGOT) 15 5-34 FIB-4 SCORE 1.92 <2.67 Dec 07, 2021 06:42 AM [facility] CBC PROFILE Specimen Type: BLOOD [facility] No comment enter ed. Ordering Provid er: PORFIRIO WALTERS Report Released Date/Time: Dec 06, 2021 06:57 PM Reporting Lab: [facility] [address] [facility] [address] Performing Lab: [facility] [address] [facility] [address] WBC 5.7 4.5-11.0 RBC 4.15 L 4.23-5.66 [...] [facility]AM[facility] %) AUTOMATED Comment: Tests performed on [employer] (405) SN:[id number] Ordering Provid er: ISATU TODD Report Released Date/Time: Dec 07, 2021 10:28 AM Reporting Lab: [place] [facility] [address] [facility] [address] Performing Lab: [place] [facility] [address] [facility] [address] RETICULOCYTES (%) AUTOMATED 1.23 0. 6-2.0 RETICULOCYTES (ABS) AUTOMATED 0.052 0.030-0.090 Dec 06, 2021 09:45 [place] MRSA SURVL NARES Specimen Ty pe: NARES PM [facility] DNA No comment enter ed. Ordering Provid er: ALVARO VARGHESE Report Released Date/Time: Dec 07, 2021 02:20 AM Reporting Lab: [place] [facility] [address] [facility] [address] Performing Lab: [place] [facility] [address] [facility] [address] MRSA SURVL NARES DNA NEGATIVE NEGATIVE Dec 06, 2021 06:00 [place] URINALYSIS W/REFLEX TO Speci men Type: URINE PM [facility] CULTURE No comment enter ed. Ordering Provid er: JELANI SÁNCHEZ Report Released Date/Time: Dec 06, 2021 11:57 AM Reporting Lab: [place] [facility] [address] [facility] [address] Performing Lab: [place] [facility] [address] [facility] [address] URINE COLOR Arlin YELLOW SPECIFIC GRAVITY 1.029 [...] 21, RIVER VARIANT Comment: https://www.cdc.gov/coronavirus/2019-ncov/cases-updates/variant- surveillance/variant-info.html The Tymphany SARS CoV 2 Dental Fix RX Research Assay-GX is a next-generation sequencing (NGS) assa 2021 [facility] SEQUENCING y that determine s the complete genome sequence of the SARS-CoV-2 virus. The assay contains variant-tolerant primers to broaden and improve the coverage for variant detection and increase the sensitivity 12:00 [facility] PNL(WH) of the panel to enable detection from lower viral titer samples. The assay is run on the Nekted Sequencer, which performs automated library preparation, sequencing, analysis, and reporting. PM The sequence an alysis includes determination of viral phylogenetic lineage by comparison to the reference strain Wuhan-Hu-1, GenBank: [id number]. Sequence determination may not be possible owing [...] N [facility] [address] Performing Lab: [facility] [address] [facility] [address] SARS-CoV-2 CLADE() 22C (OMICRON) SARS-CoV-2 LINEAGE() BA.2.12.1 Dec 06, 2021 12:00 [facility] COVID-19 AG SCREEN Specimen Type: NASAL CAVITY PM [facility] PANEL BINAX(405) Comment: Testi ng Performed By: Mike Briscoe Ordering Provid er: JELANI SÁNCHEZ Report Released Date/Time: Dec 08, 2021 08:23 AM Reporting Lab: [facility] [address] [facility] [address] Performing Lab: [facility] [address] [facility] [address] COVID-19 AG SCRN(wrj BINAX) POSITIVE HH NE G Dec 06, 2021 12:00 PM [facility] LIVER PROFILE Sp ecimen Type: PLASMA Comment: Testin g Performed on Pham Gut Cleaner (405) SN:[id number] Ordering Provid er: JELANI SÁNCHEZ Report Released Date/Time: Dec 06, 2021 11:57 AM Reporting Lab: [facility] [address] [facility] [address] Performing Lab: [facility] [address] [facility] [address] PROTEIN, TOTAL 6.6 6.0-8.5 ALBUMIN 2.8 L 3.2-5.0 BILIRUBIN, TOTAL 0.6 0.2-1.2 ALKALINE PHOSPHATASE 134 40-150 ALT(SGPT) 13 7-52 AST(SGOT) 18 5-34 FIB-4 SCORE 1.94 <2.67 Dec 06, 2021 12:00 PM [facility] TROPONIN [facility] Sp ecimen Type: PLASMA Comment: Tests performed on Pham Gut Cleaner (405) SN:[id number] Ordering Provid er: JELANI SÁNCHEZ Report Released Date/Time: Dec 06, 2021 11:57 AM Reporting Lab: [facility] [address] [facility] [address] Performing Lab: [facility] [address] [facility] [address] TROPONIN II 0.03 0.00-0.29 Dec 06, 2021 12:00 PM [facility] BNP(P) Sp ecimen Type: PLASMA Comment: Tests performed on Pham Gut Cleaner (405) SN:[id number] Ordering Provid er: JELANI SÁNCHEZ Report Released Date/Time: Dec 06, 2021 11:57 AM Reporting Lab: [facility] [address] [facility] [address] Performing Lab: [facility] [address] [facility] [address] BNP(P) 224.8 H 10-100 Dec 06, 2021 [facility] COVID-19+FLU/RSV DIAGNOSTIC Spe cimen Type: NASOPHARYNX 12:00 PM [facility] PANEL(405) Comment: Tests performed on BuildFax Genexpert (405) Critical results called to and read back by: ALESHIA WILKINSON RN 12/06/21 @ 1312 Ordering Provid er: JELANI SÁNCHEZ Report Released Date/Time: Dec 06, 2021 11:57 AM Reporting Lab: [facility] [address] [facility] [address] Performing Lab: [facility] [address] [facility] [address] FLU A(PCR) NEGATIVE NEGATIVE FLU B(PCR) NEGATIVE NEGATIVE RSV(PCR) NEGATIVE NEGATIVE COVID-19([id number]) DETECTED HH NO T DETECTED Dec 06, 2021 [facility] P4 GLU,BUN,CREAT,LYTES,CA Speci men Type: PLASMA 12:00 PM [facility] Comment: Testin g Performed on Pham Gut Cleaner (405) SN:[id number] Ordering Provid er: JELANI SÁNCHEZ Report Released Date/Time: Dec 06, 2021 11:57 AM Reporting Lab: [facility] [address] [facility] [address] Performing Lab: [facility] [address] [facility] [address] UREA NITROGEN 13 7-25 SODIUM 138 135-145 POTASSIUM 3.8 3.5-5.0 CHLORIDE 103 100-110 CARBON DIOXIDE 23 20-30 ANION GAP 12 4-16 GLUCOSE 105 H 65-100 CREATININE 0.90 0.5-1.5 CALCIUM 8.7 8.5-10.5 eGFR(CKD-EPI 2020) >90.0 >60 Dec 06, 2021 12:00 PM [facility] CBC PROFILE Sp ecimen Type: BLOOD No comment enter ed. Ordering Provid er: JELANI SÁNCHEZ Report Released Date/Time: Dec 06, 2021 11:57 AM Reporting [facility] [address] [facility] [address] Performing Lab: [facility] [address] [facility] [address] WBC 7.2 4.5-11.0 RBC 4.86 4.23-5.66 HGB [...] 2021 07:56 /min mm[Hg] RIVER PM T [facility] Dec 11, 3 WHITE 2021 07:49 RIVER PM T [facility] Dec 11, 98.3 F 98 127/83 18 /min 97 % 0 WHITE 2021 02:50 /min mm[Hg] RIVER PM T [facility] Dec 11, 0 WHITE 2021 01:57 RIVER PM T [facility] Dec 11, 0 WHITE 2021 08:49 RIVER AM [facility] Social History: Smoking [...] took place. Date/Time Smoking Status/Tobacco Use Comment [facility] Apr 01, 2020 01:16 PM [...] TOBACCO USE IN PAST YEAR CAREY MONTOYA [facility] Mar 16, 2016 12:50 PM V1-PT DECLINES [...] W/WO CONTRAST: MARYELLEN LONG LUCAS LARES N [id number] -[id number] [facility] Exm Date: DEC 13, 2021@12:57 Req Phys: ISATU TODD Loc: OP Unknown/0 12-15-2021@13:20 Img Loc: MRI IMAGING (OOS) Service: ZGENERAL MEDICINE (Case [id number] COMPLETE) MRI ABDOMEN W/WO CONTRAST (M RI Detailed) CPT:14791 Reason for Study: further characterization of a [...] new lyphadenopathy REQUESTING MD: Isatu Todd PAGER: [phone] PHONE: [phone] Weight: 232.2 lb [105.32 kg] (12/12/2021 05:00) [...] patient will need to arrange for a rolloff driver to take him/her home after the [...] 2021 Date Verified: DEC 15, 2021 Supervisor Stave Finishing E-Sig:/ES/MARYELLEN LONG Report: MRI ABDOMEN W/WO CONTRAST [...] Primary Interpreting Staff: Staff AMELIA THOMAS (Supervisor Stave Finishing) / Dec 10, 2021 09:[address] ABDOMEN & PELVIS: RADIOLOGY,OUTSIDE [facility] LUCAS MEEK N [id number] -1950 M SERVICE [facility] Exm Date: DEC 10, 2021@09:30 Req Phys: ISATU TODD Loc: 1S MED/12-10@10:57 Img Loc: CT SCAN (OOS) Service: [facility] MEDICINE (Case [id number] COMPLETE) CT ABD & PELVIS WITHOUT CONT RAST (CT Detailed) CPT:50693 Reason for Study: 71 yo male with [...] INDEX - NO HEIGHTS FOUND Pager number: [phone] STAT orders MUST be call ed to RADIOLOGY [phone] to speak to the appropriate military pay technician. Report Status: Verified Date Reported: DEC 10, 2021 Date Verified: DEC 10, 2021 Supervisor Stave Finishing E-Sig: Report: EXAM: CT abdomen and pelvis [...] ph nodes. READING PHYSICIAN: Ramone Munoz D.O. [phone] 12/10/2021 10:55 EDT [facility] National Teleradiology Program [phone] (For Medical Practitioner Use Only ) [address], [facility] [address], [address] [place] [address] Attention Patients / Veterans: If you have ques tions or concerns about these test results, please contact your o rdering provider or primary care team. Primary Diagnostic Code: SIGNIFICANT ABNORMALIT Y, ATTN NEEDED Primary Interpreting Staff: RADIOLOGY,OUTSIDE SERVICE, Staff Physician / Dec 09, 2021 07:34 AM BASW (MODIFIED): JESSIE CHENEY TARA ER JCT LUCAS MEEK [id number] -1950 M [facility] Exm Date: DEC 09, 2021@07:34 Req Phys: ISATU TODD Yao Manjarrez Loc: 1S MED/12-09@11:26 Img Loc: XRAY (OOS) Service: [facility] MEDICINE (Case [id number] COMPLETE) BASW (MODIFIED) (RAD Detaile d) CPT:21941 Contrast Media : Barium Reason for Study: dysphagia ?esophageal spasm Clinical History: Report Status: Verified Date Reported: DEC 09, 2021 Date Verified: DEC 09, 2021 Supervisor Stave Finishing E-Sig:/ES/JESSIE CHENEY Report: BASW (MODIFIED) , 12/09/2021 [...] Primary Interpreting Staff: JESSIE CHENEY, RADIOLOGIST (Supervisor Stave Finishing) /TLC Dec 06, 2021 12:[address] CHEST (INCLUDES ADRENALS): [facility] [id number] -1950 [facility] Ex[facility] Date: DEC 06, 2021@12:59 Req Phys: GONZALOJELANI Loc: [facility] ED DAYS M 1RD (Req'g Loc) Img Loc: CT SCAN (OOS) Service: Unknown (Case [id number] COMPLETE) CT THORAX W/O CONT (CT Detai led) CPT:89115 Reason for Study: Opacification right chest Clinical History: No contrast allergy BUN: 13 (12/06/21 12:00) CREATI: 0.90 (12/06/21 12:00) eGFR 05/16/21 09:43 52 L Weight: 232.6 lb [105.51 kg] (12/06/2021 11:40) BODY MASS INDEX - NO HEIGHTS FOUND Pager number: [phone] STAT orders MUST be called t o RADIOLOGY [phone] to speak to the appropriate military pay technician. Indications - Other: Opacification right chest, covid positive, lung cancer histo Report Status: Verified Date Reported: DEC 06, 2021 Date Verified: DEC 06, 2021 Supervisor Stave Finishing E-Sig:/ES/JESSIE CHENEY Report: CT THORAX W/O CONT [...] Primary Interpreting Staff: JESSIE CHENEY, RADIOLOGIST (Supervisor Stave Finishing) Primary Interpreting Resident: PRINCE CHAMPION, Resident /BR Dec 06, 2021 11:58 AM CHEST SINGLE VIEW: JESSIE CHENEYT LUCAS MEEK N [id number] -1950 M [facility] Exm Date: DEC 06, 2021@11:58 Req Phys: JELANI SÁNCHEZ Pat Loc: [facility] ED DAYS M 1RD (Req'g Loc) Img Loc: XRAY (OOS) Service: Unknown (Case [id number] COMPLETE) CHEST SINGLE VIEW (RAD Detai led) CPT:91576 Proc Modifiers : PORTABLE EXAM Reason for Study: SOB, home covid test positive Clinical History: Report Status: Verified Date Reported: DEC 06, 2021 Date Verified: DEC 06, 2021 Supervisor Stave Finishing E-Sig:/ES/JESSIE CHENEY Report: Exam type: Chest x-ray [...] Primary Interpreting Staff: JESSIE CHENEY, RADIOLOGIST (Supervisor Stave Finishing) /TLC Pathology Reports: +/- 30 days of [...] [facility] [CLIA# [id number]] [address] [place] [address] - - - - - - [...] automatically d ocumented from SURGERY package case #[id number] Field (#32) PRINCIPAL PRE-OP DIAGNOSIS, (#.72) OTHER [...] automatically d ocumented from SURGERY package case #[id number] Field (#34) PRINCIPAL POST-OP DIAG, (#.74) OTHER [...] Label: Lucas Meek Paperwork: Lucas Meek Cassette: [id number];..;KALYANI;.;405;[id number] Specimen is labeled: ES bx Received in formalin are several pieces of pale boyd and brown tissue, 1.2 x 0.7 cm in aggregate. Submitted entirely in 1 cassette [id number];..;KALYANI;.;405;[id number] SAW 12/15/2021 Microscopic exam: *+* MODIFIED REPORT [...] in rendering the final pathologic diagnosis. [address] [address] CPT: 44402 /emely/ NIURKA Yeung MD Signed Jan 03, 2022@10:28 Performing Laboratory: Surgical Pathology Report Performed By: CAREY [facility] [CLIA# [id number]] [address] [place] [address] $FTR - - - - - [...] - - LUCAS MEEK STANDARD FORM 515 ID:[id number] SEX:M :1950 AGE: 71 LOC: SDM END PCP: Isatu Todd /emely/ NIURKA MILLER Staff Signed: 01/03/2022 10:28 Dec 21, 2021 11:46 AM LR SURGICAL PATHOLOGY REPORT: STEFANY MILLER [facility] LOCAL TITLE: LR SURGICAL PATHOLOGY REPORT [facility] STANDARD TITLE: PATHOLOGY REPORT DATE OF NOTE: DEC 21, 2021@11:46:59 ENTRY DATE: DEC 21, 2021@11:46:59 AUTHOR: NIURKA MILLER EXP COSIGNER: URGENCY: STATUS: COMPLETED $APHDR Reporting Lab: [facility] [CLIA# [id number]] [address] [place] [address] - - - - - - [...] automatically d ocumented from SURGERY package case #[id number] Field (#32) PRINCIPAL PRE-OP DIAGNOSIS, (#.72) OTHER [...] automatically d ocumented from SURGERY package case #[id number] Field (#34) PRINCIPAL POST-OP DIAG, (#.74) OTHER [...] Label: Lucas Meek Paperwork: Lucas Meek Cassette: [id number];..;KALYANI;.;405;[id number] Specimen is labeled: ES bx Received in formalin are several pieces of pale boyd and brown tissue, 1.2 x 0.7 cm in aggregate. Submitted entirely in 1 cassette [id number];..;KALYANI;.;405;[id number] SAW 12/15/2021 Microscopic exam: DIAGNOSIS: A. 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 Kendell long. TIARA Coombs was notified on 12/21/21. The attending pathologist who signature mansoor ears on this report has reviewed all diagnostic slides and has edited t he gross and/or microscopic portion of this report in rendering the final pathologic diagnosis. [address] [address] CPT: 60430 /emely/ NIURKA Yeung MD Signed Dec 21, 2021@11:46 Performing Laboratory: Surgical Pathology Report Performed By: [facility] [CLIA# [id number]] [address] [place] [address] $FTR - - - - - [...] - - LUCAS MEEK STANDARD FORM 515 ID:[id number] SEX:M :1950 AGE: 71 LOC: [facility] END PCP: Isatu Todd /charmaine Yeung MD Signed: 12/21/2021 11:46 Dec 06, 2021 03:30 PM LR MICROBIOLOGY REPORT: [facility] Reporting Lab: [facility] [CLIA# [id number]] [address] [place] [address] Accession [UID]: [id number] [[id number]] Receiv ed: Dec 06, 2021@16:14 Collection sample: BLOOD CUL T BOTTLE(NIRMAL/AERO)Collection date: Dec 06, 2021 15:30 Site/Specimen: BLOOD Provider: JELANI SÁNCHEZ Comment on specimen: LAC Test(s) ordered: BLOOD CULTURE ANAEROBI C....... completed: Dec 12, 2021 06:18 * BACTERIOLOGY FINAL REPORT => Dec 12, 2021 06:1 8 TECH CODE: [id number] Bacteriology Remark(s): NO GROWTH IN 5 DAYS =--=--=--=--=--=--=--=--=--=--=--=--=--= --=--=--=--=--=--=--=--=--=--=--=--=-- Performing Laboratory: Bacteriology Report Performed By: [facility] [CLIA# [id number]] [address] [place] [address] Dec 06, 2021 03:30 PM LR MICROBIOLOGY REPORT: [facility] Reporting Lab: [facility] [CLIA# [id number]] [address] [place] [address] Accession [UID]: [id number] [[id number]] Receiv ed: Dec 06, 2021@16:14 Collection sample: BLOOD CUL T BOTTLE(NIRMAL/AERO)Collection date: Dec 06, 2021 15:30 Site/Specimen: BLOOD Provider: JELANI SÁNCHEZ Comment on specimen: LAC Test(s) ordered: BLOOD CULTURE AEROBIC. ........ completed: Dec 12, 2021 06:17 * BACTERIOLOGY FINAL REPORT => Dec 12, 2021 06:1 7 TECH CODE: [id number] Bacteriology Remark(s): NO GROWTH IN 5 DAYS =--=--=--=--=--=--=--=--=--=--=--=--=--= --=--=--=--=--=--=--=--=--=--=--=--=-- Performing Laboratory: Bacteriology Report Performed By: [facility] [CLIA# [id number]] [address] [place] [address]
--- OUTSIDE RECORDS SUMMARY | 2022-01-19 09:17 | XMS_ITS ---
DAILY HOSPITALIZATION DATA [facility] Encounter Summary Created on:December 11, 2021 Patient:LUCAS MEEK Sex:Male :1950 Author Organization [facility] Address [address] [place] [id number] Support Name Relationship Address Phone YUSRA MEEK Unavailable [address] [place] [address] YUSRA MEEK Unavailable [address] [place] [facility] [place] [address] CLAY MOSLEY Unavailable Unavailable SJ SANTACRUZ Unavailable [...] MEDICARE MEDICARE PART Jun 18, PART A [id number] DO KALYANI PATIENT (WNR) (M) A 2016 13A 1 U[place]AS MEDICARE MEDICARE PART Jun 18, PART B [id number] DO KALYANI PATIENT (WNR) (M) B 2016 13A 1 [place] MEDICARE MEDICARE PART Jun 18, PART A [id number] KALYANIDO PATIENT (WNR) (M) A 2017 VH81 2 [place] MEDICARE MEDICARE PART Jun 18, PART B [id number] DO KALYANI PATIENT (WNR) (M) B 2017 VH81 2 [place] UNITED MEDICARE MCR(Jun 18 [id number] Luz MEEK PATIENT HEALTHCARE ADVANTAGE NR) [address] [facility] (WNR) Selected Encounter This section includes the information on record at [place] for the Encounter. Date/Time Encounter Type Encounter Description Reason Provider Source Dec 11, 2021 07:58 Inpatient Visit DAILY HOSPITALIZATION DATA PM IHE [...] AMBULATORY - N[place] [facility] Jan 06, 2022 02:00 PM [place] [facility] Jan 10, 2022 11:30 AM AMBULATORY - MEDICINE [facility] Jan 24, 2022 08:00 AM [place] [facility] Feb 21, 2022 10:00 AM AMBULATORY - SURG[place] [facility] Mar 21, [...] The data comes from all [place] treatment [facility]. Test Date/Time Test Type Test Details Facility Name October 31, 2021 07:37 AM Consult Order [facility] Cons Glue [facility] November 15, 2021 10:37 AM Consult Order [facility] Cons [place] [facility] Dec 06, 2021 12:52 PM [...] [place] OUTPATIENT Cons [facility] Glue [facility]inter [facility] Jan 15, 2022 10:08 PM Consult Order [facility] Cons Glue [facility]inter [facility] Lab Results: +/- 30 days of the encounter This section includes the Chemistry and Hematology Lab Results on record with [place] for the patient. Radiology Reports and Pathology Reports are provided separately, in subsequent sections.Lab Results This section contains the Chemistry/Hematology Results that were resulted 30 days before or 30 daysafter the date of the Encounter. Date/Time Source Result Type Result - Unit Interpretation Reference Range Comment Dec 15, 2021 06:43 AM [facility] CBC PROFILE Sp ecimen Type: BLOOD No comment enter ed. Ordering Provid er: ISATU TODD Report Released Date/Time: Dec 10, 2021 07:22 AM Reporting Lab: [facility] [address] [facility] [address] Performing Lab: [facility] [address] [facility] [address] WBC 5.7 4.5-11.0 RBC 4.22 L 4.23-5.66 [...] ABSOLUTE NRBC 0.00 0-0 Dec 15, 2021 [facility] P4 GLU,BUN,CREAT,LYTES,CA Speci men Type: PLASMA 06:43 AM [facility] Comment: Tests performed on Pham Optoelectronics Engineer (405) SN:[id number] Ordering Provid er: ISATU TODD Report Released Date/Time: Dec 11, 2021 07:42 AM Reporting [facility]: [facility] [address] [facility] [address] Performing [facility]: [facility] [address] [facility] [address] UREA NITROGEN 9 7-25 SODIUM 137 135-145 POTASSIUM 3.8 3.5-5.0 CHLORIDE 105 100-110 CARBON DIOXIDE 26 20-30 ANION GAP 6 4-16 GLUCOSE 102 H 65-100 CREATININE 0.64 0.5-1.5 CALCIUM 8.1 L 8.5-10.5 eGFR(CKD-EPI 2020) >90.0 >60 Dec 14, 2021 [facility] CYTOGENETIC Specimen Type: ESOPHAGUS 02:59 PM [facility] FISH([facility]) Comment: ~For T est: CYTOGENETIC FISH([facility]) ~FISH HER 2 NUE, FFPE See full report in [employer] Image display viewer/tab#LAB-Reference Ordering Provid er: NIURKA MILLER Report Released Date/Time: Dec 21, 2021 12:11 PM Reporting Lab: [facility] [address] [facility] [address] Performing Lab: [facility] CYTOGENETIC FISH([facility]) comment Dec 14, 2021 [place] P4 GLU,BUN,CREAT,LYTES,CA Speci men Type: PLASMA 06:27 AM [facility] Comment: Tests performed on Pham Optoelectronics Engineer (405) SN:[id number] Ordering Provid er: ISATU TODD Report Released Date/Time: Dec 11, 2021 07:42 AM Reporting Lab: [facility] [address] [facility] [address] Performing [facility]: [facility] [address] [facility] [address] UREA NITROGEN 10 7-25 SODIUM 137 135-145 [...] Reporting Lab: [facility] [address] [facility] [address] Performing Lab: [facility] [address] [facility] [address] WBC 6.0 4.5-11.0 RBC 4.29 4.23-5.66 HGB [...] [facility] Comment: Tests performed on CiraNova (405) SN:[id number] Ordering Provid er: ISATU TODD Report Released Date/Time: Dec 11, 2021 07:42 AM Reporting Lab: [facility] [address] [facility] [address] Performing Lab: [facility] [address] [facility] [address] UREA NITROGEN 12 7-25 SODIUM 136 135-145 [...] Reporting Lab: [facility] [address] [facility] [address] Performing Lab: [facility] [address] [facility] [address] WBC 5.6 4.5-11.0 RBC 4.28 4.23-5.66 HGB [...] ABSOLUTE NRBC 0.00 0-0 Dec 12, 2021 [facility] P4 GLU,BUN,CREAT,LYTES,CA Speci men Type: PLASMA 06:21 AM [facility] Comment: Tests performed on CiraNova (405) SN:[id number] Ordering Provid er: ISATU TODD Report Released Date/Time: Dec 11, 2021 07:42 AM Reporting Lab: [facility] [address] [facility] [address] Per[facility]: [facility] [address] [facility] [address] UREA NITROGEN 11 7-25 SODIUM 139 135-145 [...] Dec 10, 2021 07:22 AM Reporting Lab: [facility] [address] [facility] [address] Performing Lab: [facility] [address] [facility] [address] WBC 5.5 4.5-11.0 RBC 4.37 4.23-5.66 HGB [...] 0.00 0-0 Dec 12, 2021 06:00 AM [facility] MAGNESIUM Sp ecimen Type: PLASMA Comment: Testin g Performed on CiraNova (405) SN:[id number] Ordering Provid er: ISATU TODD Report Released Date/Time: Dec 12, 2021 08:24 AM Reporting Lab: [place] [facility] [address] [facility] [address] Performing Lab: [facility] [place] [employer] BioscienceT [facility] [address] [facility] [address] MAGNESIUM 1.8 1.6-2.6 Dec 12, 2021 06:00 AM [facility] SystemsMR[facility] PHOSPHORUS Sp ecimen Type: PLASMA Comment: Testin g Performed on CiraNova (405) SN:[id number] Ordering Provid er: ISATU TODD Report Released Date/Time: Dec 12, 2021 08:24 AM Reporting Lab: [place] [employer] [address] [facility] [address] Performing Lab: [place] [employer] BioscienceT [employer] Systems[facility] [address] [facility] [address] PHOSPHORUS 3.1 2.5-5.0 Dec 11, 2021 06:15 AM [facility] [place] [employer] BioscienceT Pet[employer] SystemsMROC ELECTROLYTES Sp ecimen Type: PLASMA Comment: Tests performed on CiraNova (405) SN:[id number] Ordering Provid er: ISATU TODD Report Released Date/Time: Dec 10, 2021 07:22 AM Reporting Lab: [place] [employer] [facility] [address] [facility] [address] Performing Lab: [place] [employer] [facility] [address] [facility] [address] SODIUM 137 135-145 POTASSIUM 4.3 3.5-5.0 CHLORIDE 108 100-110 CARBON DIOXIDE 20 20-30 ANION GAP 9 4-16 Dec 11, 2021 06:15 AM WHITE Movi MedicalT [facility] CBC PROFILE Sp ecimen Type: BLOOD Comment: Result s checked Ordering Provid er: ISATU TODD Report Released Date/Time: Dec 10, 2021 07:22 AM Reporting Lab: [place] OMEGAT [facility] [address] [facility] [address] Performing Lab: [place] OMEGAT [facility] [address] [facility] [address] WBC 5.8 4.5-11.0 RBC 4.37 4.23-5.66 HGB [...] 0.00 0-0 Dec 11, 2021 06:00 AM [facility] PHOSPHORUS Sp ecimen Type: PLASMA Comment: Tests performed on CiraNova (552) SN:[id number] Results checked Ordering Provid er: ISATU TODD Report Released Date/Time: Dec 11, 2021 07:44 AM Reporting Lab: [facility] [address] [facility] [address] Performing Lab: [place] OMEGAT [facility] [address] [facility] [address] PHOSPHORUS 3.0 2.5-5.0 Dec 10, 2021 08:05 AM [place] [facility] MAGNESIUM Sp ecimen Type: PLASMA Comment: [place] [id number] on Dec 10, 2021@08:31 Tests performed on CiraNova (405) SN:[id number] Ordering Provid er: ISATU TODD Report Released Date/Time: Dec 10, 2021 07:22 AM Reporting Lab: [place] [facility] [address] [facility] [place] [address] Performing Lab: [place] [facility] [address] [facility] [place] [address] MAGNESIUM 1.7 1.6-2.6 Dec 10, 2021 08:05 AM [place] [facility] PHOSPHORUS Sp ecimen Type: PLASMA Comment: [place] [id number] on Dec 10, 2021@08:31 Tests performed on CiraNova (405) SN:[id number] Ordering Provid er: ISATU TODD Report Released Date/Time: Dec 10, 2021 07:22 AM Reporting Lab: [place] [facility] [address] [facility] [place] [address] Performing Lab: [place] [facility] [address] [facility] [place] [address] PHOSPHORUS 1.8 L 2.5-5.0 Dec 10, 2021 08:05 AM [place] UREA NITROGEN Specimen Type: PLASMA [facility] Comment: [place] [id number] on Dec 10, 2021@08:31 Tests performed on CiraNova (405) SN:[id number] Ordering Provid er: ISATU TODD Report Released Date/Time: Dec 10, 2021 07:22 AM Reporting Lab: [place] [facility] [address] [facility] [place] [address] Performing Lab: [place] [facility] [address] [facility] [place] [address] UREA NITROGEN 8 7-25 Dec 10, 2021 08:05 AM [place] [facility] GLUCOSE Sp ecimen Type: PLASMA Comment: [place] [id number] on Dec 10, 2021@08:31 Tests performed on CiraNova (405) SN:[id number] Ordering Provid er: ISATU TODD Report Released Date/Time: Dec 10, 2021 07:22 AM Reporting Lab: [place] [facility] [address] [facility] [address] Performing Lab: [place] [facility] [address] [facility] [address] GLUCOSE 144 H 65-100 Dec 10, 2021 08:05 AM [place] [facility] ELECTROLYTES Sp ecimen Type: PLASMA Comment: [place] [id number] on Dec 10, 2021@08:31 Tests performed on Pham Cytoo (405) SN:[id number] Ordering Provid er: ISATU TODD Report Released Date/Time: Dec 10, 2021 07:22 AM Reporting Lab: [place] [facility] [address] [facility] [address] Performing Lab: [place] [facility] [address] [facility] [address] SODIUM 139 135-145 POTASSIUM 3.7 3.5-5.0 CHLORIDE 107 100-110 CARBON DIOXIDE 24 20-30 ANION GAP 8 4-16 Dec 10, 2021 08:05 AM [place] [facility] CALCIUM Sp ecimen Type: PLASMA Comment: [place] [id number] on Dec 10, 2021@08:31 Tests performed on Pham Cytoo (405) SN:[id number] Ordering Provid er: ISATU TODD Report Released Date/Time: Dec 10, 2021 07:22 AM Reporting Lab: [place] [facility] [address] [facility] [address] Performing Lab: [place] [facility] [address] [facility] [address] CALCIUM 8.3 L 8.5-10.5 Dec 10, 2021 08:05 [place] CREATININE WITH eGFR Specime n Type: PLASMA AM [facility] PANEL Comment: [place] [id number] on Dec 10, 2021@08:31 Tests performed on CiraNova (405) SN:[id number] Ordering Provid er: ISATU TODD Report Released Date/Time: Dec 10, 2021 07:22 AM Reporting Lab: [place] [facility] [address] [facility] [address] Performing Lab: [place] [facility] [address] [facility] [address] CREATININE 0.78 0.5-1.5 eGFR(CKD-EPI 2020) >90.0 >60 Dec 10, 2021 08:05 AM [facility] CBC PROFILE Sp ecimen Type: BLOOD No comment enter ed. Ordering Provid er: ISATU TODD Report Released Date/Time: Dec 10, 2021 07:22 AM Reporting Lab: [place] OMEGAT [facility] [address] [facility] [address] Performing Lab: [place] OMEGAT [facility] [address] [facility] [address] WBC 7.0 4.5-11.0 RBC 4.54 4.23-5.66 HGB [...] 0.00 0-0 Dec 09, 2021 06:46 AM [facility] MAGNESIUM Sp ecimen Type: PLASMA Comment: Tests performed on CiraNova (971) SN:[id number] Ordering Provid er: ISATU TODD Report Released Date/Time: Dec 08, 2021 10:23 AM Reporting Lab: [facility] [address] [facility] [address] Performing [facility]: [facility] [address] [facility] [address] MAGNESIUM 1.6 1.6-2.6 Dec 09, 2021 [facility] P4 GLU,BUN,CREAT,LYTES,CA Speci men Type: PLASMA 06:46 AM [facility] Comment: Tests performed on CiraNova (405) SN:[id number] Ordering Provid er: ISATU TODD Report Released Date/Time: Dec 08, 2021 05:00 PM Reporting Lab: [facility] [address] [facility] [address] Performing Lab: [facility] [address] [facility] [address] UREA NITROGEN 6 L 7-25 SODIUM 134 [...] Reporting Lab: [facility] [address] [facility] [address] Performing Lab: [facility] [address] [facility] [address] WBC 7.1 4.5-11.0 RBC 4.40 4.23-5.66 HGB [...] 0-0 Dec 08, 2021 06:[address] [facility] MAGNESIUM Sp ecimen Type: PLASMA Comment: Testin g Performed on CiraNova (405) SN:[id number] Ordering Provid er: ISATU TODD Report Released Date/Time: Dec 07, 2021 10:32 AM Reporting Lab: [facility] [address] [facility] [address] Performing Lab: [facility] [address] [facility] [address] MAGNESIUM 1.5 L 1.6-2.6 Dec 08, 2021 06:[address] [facility] CBC PROFILE Sp ecimen Type: BLOOD No comment enter ed. Ordering Provid er: ISATU TODD Report Released Date/Time: Dec 07, 2021 10:32 AM Reporting Lab: [facility] [address] [facility] [address] Performing Lab: [facility] [address] [facility] [address] WBC 8.4 4.5-11.0 RBC 4.75 4.23-5.66 HGB [...] ABSOLUTE NRBC 0.00 0-0 Dec 08, 2021 [facility] P4 GLU,BUN,CREAT,LYTES,CA Speci men Type: PLASMA 06:39 AM [facility] Comment: Testin g Performed on Pham Cytoo (405) SN:[id number] Ordering Provid er: ISATU TODD Report Released Date/Time: Dec 07, 2021 10:32 AM Reporting Lab: [facility] [address] [facility] [address] Performing Lab: [facility] [address] [facility] [address] UREA NITROGEN 6 L 7-25 SODIUM 136 135-145 POTASSIUM 3.3 L 3.5-5.0 CHLORIDE 104 100-110 CARBON DIOXIDE 22 20-30 ANION GAP 10 4-16 GLUCOSE 133 H 65-100 CREATININE 0.76 0.5-1.5 CALCIUM 8.4 L 8.5-10.5 eGFR(CKD-EPI 2020) >90.0 >60 Dec 07, 2021 [facility] P4 GLU,BUN,CREAT,LYTES,CA Speci men Type: PLASMA 06:42 AM [facility] Comment: Tests performed on Pham Cytoo (405) SN:[id number] Ordering Provid er: PORFIRIO WALTERS Report Released Date/Time: Dec 06, 2021 06:57 PM Reporting Lab: [place] [employer] [facility] [address] [facility] [address] Per[facility]: [facility] [address] [facility] [address] UREA NITROGEN 9 7-25 SODIUM 135 135-145 POTASSIUM 3.5 3.5-5.0 CHLORIDE 103 100-110 CARBON DIOXIDE 22 20-30 ANION GAP 10 4-16 GLUCOSE 92 65-100 CREATININE 0.73 0.5-1.5 CALCIUM 8.0 L 8.5-10.5 eGFR(CKD-EPI 2020) >90.0 >60 Dec 07, 2021 06:42 [place] LIVER PROFILE Specimen Typ e: PLASMA AM [facility] Comment: Tests performed on [employer] Optoelectronics Engineer (405) SN:[id number] Ordering Provid er: PORFIRIO WALTERS Report Released Date/Time: Dec 06, 2021 06:57 PM Reporting Lab: [facility] [address] [facility] [address] Per[facility]: [facility] [address] [facility] [address] PROTEIN, TOTAL 5.7 L 6.0-8.5 ALBUMIN 2.4 [...] Dec 06, 2021 06:57 PM Reporting Lab: [facility] [address] [facility] [address] Per[facility]: [facility] [address] [facility] [address] WBC 5.7 4.5-11.0 RBC 4.15 L 4.23-5.66 [...] [facility] %) AUTOMATED Comment: Tests performed on CiraNova (405) SN:[id number] Ordering Provid er: ISATU TODD Report Released Date/Time: Dec 07, 2021 10:28 AM Reporting Lab: [place] [facility] [address] [facility] [address] Performing Lab: [place] [facility] [address] [facility] [address] RETICULOCYTES (%) AUTOMATED 1.23 0. 6-2.0 RETICULOCYTES (ABS) AUTOMATED 0.052 0.030-0.090 Dec 06, 2021 09:45 [place] MRSA SURVL NARES Specimen Ty pe: NARES PM [facility] DNA No comment enter ed. Ordering Provid er: ALVARO VARGHESE Report Released Date/Time: Dec 07, 2021 02:20 AM Reporting Lab: [place] [facility] [address] [facility] [address] Performing Lab: [place] [facility] [address] [facility] [address] MRSA SURVL NARES DNA NEGATIVE NEGATIVE Dec 06, 2021 06:00 [place] URINALYSIS W/REFLEX TO Speci men Type: URINE PM [facility] CULTURE No comment enter ed. Ordering Provid er: JELANI SÁNCHEZ Report Released Date/Time: Dec 06, 2021 11:57 AM Reporting Lab: [place] [facility] [address] [facility] [address] Performing Lab: [place] [facility] [address] [facility] [address] URINE COLOR Ralin YELLOW SPECIFIC GRAVITY 1.029 1.003-1.030 UROBILINOGEN <2.0 [...] 21, R[place]IANT Comment: https://www.cdc.gov/coronavirus/2019-ncov/cases-updates/variant- surveillance/variant-info.html The [facility] SARS CoV 2 ufindads Research Assay-GX is a next-generation sequencing (NGS) assa 2021 [facility] SEQUENCING y that determine s the complete genome sequence of the SARS-CoV-2 virus. The assay contains variant-tolerant primers to broaden and improve the coverage for variant detection and increase the sensitivity 12:00 [facility] PNL(WH) of the panel to enable detection from lower viral titer samples. The assay is run on the britebill Sequencer, which performs automated library preparation, sequencing, analysis, and reporting. PM The sequence an alysis includes determination of viral phylogenetic lineage by comparison to the reference strain Wuhan-Hu-1, GenBank: [id number]. Sequence determination may not be possible owing [...] Dec 06, 2021 01:13 PM Reporting Lab: [facility] [address] [facility] [address] Performing Lab: [facility] [address] [facility] [address] SARS-CoV-2 CLADE() 22C (OMICRON) SARS-CoV-2 LINEAGE() BA.2.12.1 Dec 06, 2021 12:00 [facility] COVID-19 AG SCREEN Specimen Type: NASAL CAVITY PM [facility] PANEL BINAX(405) Comment: Testi ng Performed By: Mike Briscoe Ordering Provid er: JELANI SÁNCHEZ Report Released Date/Time: Dec 08, 2021 08:23 AM Reporting Lab: [facility] [address] [facility] [address] Performing [facility]: [facility] [address] [facility] [address] COVID-19 AG SCRN(wrj BINAX) POSITIVE HH NE G Dec 06, 2021 [facility] P4 GLU,BUN,CREAT,LYTES,CA Speci men Type: PLASMA 12:00 PM [facility] Comment: Testin g Performed on Pham Optoelectronics Engineer (405) SN:[id number] Ordering Provid er: JELANI SÁNCHEZ Report Released Date/Time: Dec 06, 2021 11:57 AM Reporting Lab: [facility] [address] [facility] [address] Per[facility]: [facility] [address] [facility] [address] UREA NITROGEN 13 7-25 SODIUM 138 135-145 POTASSIUM 3.8 3.5-5.0 CHLORIDE 103 100-110 CARBON DIOXIDE 23 20-30 ANION GAP 12 4-16 GLUCOSE 105 H 65-100 CREATININE 0.90 0.5-1.5 CALCIUM 8.7 8.5-10.5 eGFR(CKD-EPI 2020) >90.0 >60 Dec 06, 2021 12:00 PM [facility] TROPONIN II Sp ecimen Type: PLASMA Comment: Tests performed on Pham Optoelectronics Engineer (405) SN:[id number] Ordering Provid er: JELANI SÁNCHEZ Report Released Date/Time: Dec 06, 2021 11:57 AM Reporting Lab: [facility] [address] [facility] [address] Performing Lab: [facility] [address] [facility] [address] TROPONIN II 0.03 0.00-0.29 Dec 06, 2021 12:00 PM [facility] LIVER PROFILE Sp ecimen Type: PLASMA Comment: Testin g Performed on Pham Optoelectronics Engineer (405) SN:[id number] Ordering Provid er: JELANI SÁNCHEZ Report Released Date/Time: Dec 06, 2021 11:57 AM Reporting Lab: [facility] [address] [facility] [address] Performing Lab: [facility] [address] [facility] [address] PROTEIN, TOTAL 6.6 6.0-8.5 ALBUMIN 2.8 L 3.2-5.0 BILIRUBIN, TOTAL 0.6 0.2-1.2 ALKALINE PHOSPHATASE 134 40-150 ALT(SGPT) 13 7-52 AST(SGOT) 18 5-34 FIB-4 SCORE 1.94 <2.67 Dec 06, 2021 [facility] COVID-19+FLU/RSV DIAGNOSTIC Spe cimen Type: NASOPHARYNX 12:00 PM [facility] PANEL(405) Comment: Tests performed on [employer] Genexpert (405) Critical results called to and read back by: ALESHIA WILKINSON RN 12/06/21 @ 1312 Ordering Provid er: JELANI SÁNCHEZ Report Released Date/Time: Dec 06, 2021 11:57 AM Reporting Lab: [facility] [address] [facility] [address] Performing Lab: [facility] [address] [facility] [address] FLU A(PCR) NEGATIVE NEGATIVE FLU B(PCR) NEGATIVE NEGATIVE RSV(PCR) NEGATIVE NEGATIVE COVID-19([id number]) DETECTED HH NO T DETECTED Dec 06, 2021 12:00 PM [facility] BNP(P) Sp ecimen Type: PLASMA Comment: Tests performed on [employer] Engineer (405) [id number] Ordering Provid er: JELANI SÁNCHEZ Report Released Date/Time: Dec 06, 2021 11:57 AM Reporting Lab: [facility] [address] [facility] [address] Performing Lab: [facility] [address] [facility] [address] BNP(P) 224.8 H 10-100 Dec 06, 2021 12:00 PM [facility] CBC PROFILE Sp ecimen Type: BLOOD No comment enter ed. Ordering Provid er: JELANI SÁNCHEZ Report Released Date/Time: Dec 06, 2021 11:57 AM Reporting Lab: [facility] [address] [facility] [address] [facility]forming Lab: [facility] [address] [facility] [address] WBC 7.2 4.5-11.0 RBC 4.86 4.23-5.66 HGB [...] 2021 07:56 /min mm[Hg] RIVER PM T [facility] Dec 11, 3 WHITE 2021 07:49 RIVER PM T [facility] Dec 11, 98.3 F 98 127/83 18 /min 97 % 0 WHITE 2021 02:50 /min mm[Hg] RIVER PM T [facility] Dec 11, 0 WHITE 2021 01:57 RIVER PM T [facility] Dec 11, 0 WHITE 2021 08:49 RIVER AM [facility] Social History: Smoking Status (Most current) [...] took place. Date/Time Smoking Status/Tobacco Use Comment [facility] Apr 01, 2020 01:16 PM [...] TOBACCO USE IN PAST YEAR CAREY DOYLE [facility] May 01, 2016 11:19 AM QUIT TOBACCO USE IN PAST YEAR CAREY MONTOYA [facility] Mar 16, 2016 12:50 PM V1-PT DECLINES REF TO TOBACCO CAREY DOYLE [facility] CESS PRGM Mar 16, 2016 12:50 PM V1-PT THINKING ABOUT QUIT CAREY DOYLE [facility] TOBACCO USE Aug 12, 2015 08:48 AM CURRENT SMOKER CAREY Yates [facility] Radiology Reports: +/- 30 days of [...] W/WO CONTRAST: MARYELLEN LONG LUCAS LARES N [id number] -1950 [facility] Exm Date: DEC 13, 2021@12:57 Req Phys: ISATU TODD Loc: OP Unknown/0 12-15-2021@13:20 Img Loc: MRI IMAGING (OOS) Service: ZGENERAL MEDICINE (Case [id number] COMPLETE) MRI ABDOMEN W/WO CONTRAST (M RI Detailed) CPT:98491 Reason for Study: further characterization of a [...] new lyphadenopathy REQUESTING MD: Isatu Todd PAGER: [phone] PHONE: [phone] Weight: 232.2 lb [105.32 kg] (12/12/2021 05:00) [...] 15, 2021 Date Verified: DEC 15, 2021 Drop Forger E-Sig:/ES/MARYELLEN LONG Report: MRI ABDOMEN W/WO CONTRAST [...] MALIGNANCY Primary Interpreting Staff: Staff AMELIA THOMAS (Drop Forger) / Dec 10, 2021 09:[address] ABDOMEN & PELVIS: [facility] LUCAS MEEK N [id number] -1950 M [facility] Exm Date: DEC 10, 2021@09:30 Req Phys: ISATU TODD Loc: 1S MED/12-10@10:57 Img Loc: CT SCAN (OOS) Service: [facility] MEDICINE (Case [id number] COMPLETE) CT ABD & PELVIS WITHOUT CONT RAST (CT Detailed) CPT:50269 Reason for Study: 71 yo male with [...] INDEX - NO HEIGHTS FOUND Pager number: [phone] STAT orders MUST be call ed to RADIOLOGY [phone] to speak to the appropriate technical support technician. Report Status: Verified Date Reported: DEC 10, 2021 Date Verified: DEC 10, 2021 Drop Forger E-Sig: Report: EXAM: CT abdomen and pelvis [...] ph nodes. READING PHYSICIAN: Ramone Munoz D.O. [phone] 12/10/2021 10:55 EDT [facility] National Teleradiology Program [phone] (For Medical Practitioner Use Only ) [address] [facility], [facility] [address] [place] [address] Attention Patients / Veterans: If you have ques tions or concerns about these test results, please contact your o rdering provider or primary care team. Primary Diagnostic Code: SIGNIFICANT ABNORMALIT Y, ATTN NEEDED Primary Interpreting Staff: RADIOLOGY,OUTSIDE SERVICE, Staff Physician / Dec 09, 2021 07:34 AM BASW (MODIFIED): JESSIE CHENEY [facility] JCT LUCAS MEEK [id number] -1950 M [facility] Exm Date: DEC 09, 2021@07:34 Req Phys: ISATU TODD Yao Manjarrez Loc: 1S MED/12-09@11:26 Img Loc: XRAY (OOS) Service: [facility] MEDICINE (Case [id number] COMPLETE) BASW (MODIFIED) (RAD Detaile d) CPT:82837 Contrast Media : Barium Reason for Study: dysphagia ?esophageal spasm Clinical History: Report Status: Verified Date Reported: DEC 09, 2021 Date Verified: DEC 09, 2021 Drop Forger E-Sig:/ES/JESSIE CHENEY Report: BASW (MODIFIED) , 12/09/2021 [...] REQUIRED Primary Interpreting Staff: JESSIE CHENEY, RADIOLOGIST (Drop Forger) /TLC Dec 06, 2021 12:[address] CHEST (INCLUDES ADRENALS): [facility] [id number] -1950 [facility] Exm Date: DEC 06, 2021@12:59 Req Phys: GONZALOJELANI Loc: [facility] ED DAYS M 1RD (Req'g Loc) Img Loc: CT SCAN (OOS) Service: Unknown (Case [id number] COMPLETE) CT THORAX W/O CONT (CT Detai led) CPT:94427 Reason for Study: Opacification right chest Clinical History: No contrast allergy BUN: 13 (12/06/21 12:00) CREATI: 0.90 (12/06/21 12:00) eGFR 05/16/21 09:43 52 L Weight: 232.6 lb [105.51 kg] (12/06/2021 11:40) BODY MASS INDEX - NO HEIGHTS FOUND Pager number: [phone] STAT orders MUST be called t o RADIOLOGY [phone] to speak to the appropriate technical support technician. Indications - Other: Opacification right chest, covid positive, lung cancer histo Report Status: Verified Date Reported: DEC 06, 2021 Date Verified: DEC 06, 2021 Drop Forger E-Sig:/ES/JESSIE CHENEY Report: CT THORAX W/O CONT [...] REQUIRED Primary Interpreting Staff: JESSIE CHENEY, RADIOLOGIST (Drop Forger) Primary Interpreting Resident: PRINCE CHAMPION, Resident /BR Dec 06, 2021 11:58 AM CHEST SINGLE VIEW: JESSIE CHENEYT LUCAS MEEK N [id number] -1950 [facility] Exm Date: DEC 06, 2021@11:58 Req Phys: JELANI SÁNCHEZ Pat Loc: [facility] ED DAYS M 1RD (Req'g Loc) Img Loc: XRAY (OOS) Service: Unknown (Case [id number] COMPLETE) CHEST SINGLE VIEW (RAD Detai led) CPT:93063 Proc Modifiers : PORTABLE EXAM Reason for Study: SOB, home covid test positive Clinical History: Report Status: Verified Date Reported: DEC 06, 2021 Date Verified: DEC 06, 2021 Drop Forger E-Sig:/ES/JESSIE CHENEY Report: Exam type: Chest x-ray [...] REQUIRED Primary Interpreting Staff: JESSIE CHENEY, RADIOLOGIST (Drop Forger) /TLC Pathology Reports: +/- 30 days of [...] Lab: CAREY MONTOYA [facility] [CLIA# [id number]] [address] [place] [address] - - - - - - [...] automatically d ocumented from SURGERY package case #[id number] Field (#32) PRINCIPAL PRE-OP DIAGNOSIS, (#.72) OTHER [...] automatically d ocumented from SURGERY package case #[id number] Field (#34) PRINCIPAL POST-OP DIAG, (#.74) OTHER [...] Label: Lucas Meek Paperwork: Lucas Meek Cassette: [id number];..;KALYANI;.;405;[id number] Specimen is labeled: ES bx Received in formalin are several pieces of pale boyd and brown tissue, 1.2 x 0.7 cm in aggregate. Submitted entirely in 1 cassette [id number];..;KALYANI;.;405;[id number] SAW 12/15/2021 Microscopic exam: *+* MODIFIED REPORT *+* (Last modified: JAN 03, 2022@09:30:20 typed by NIURKA WADDELL) DIAGNOSIS: A. 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 Kendell long. TIARA Coombs was notified on 12/21/21. Modified on 01/03/22 to include report from [facility] stating that tumor is NEGATIVE for her2/ matheus amplification. The attending pathologist who signature mansoor ears on this report has reviewed all diagnostic slides and has edited t he gross and/or microscopic portion of this report in rendering the final pathologic diagnosis. [address] [address] CPT: 21543 /emely/ NIURKA Yeung MD Signed Jan 03, 2022@10:28 Performing Laboratory: Surgical Pathology Report Performed By: CAREY MONTOYA [facility] [CLIA# [id number]] [address] [place] [address] $FTR - - - - - [...] - - LUCAS MEEK STANDARD FORM 515 ID:[id number] SEX:M :1950 AGE: 71 LOC: SDM END [...] $APHDR Reporting Lab: [facility] [CLIA# [id number]] [address] [place] [address] - - - - - - [...] automatically d ocumented from SURGERY package case #[id number] Field (#32) PRINCIPAL PRE-OP DIAGNOSIS, (#.72) OTHER [...] automatically d ocumented from SURGERY package case #[id number] Field (#34) PRINCIPAL POST-OP DIAG, (#.74) OTHER POSTOP DIAGS Esophageal cancer Surgeon/physician: MICHELLE CALERO Attending Surgeon: yKle Saenz MD =-=-=-=-=-=-=-=-=-=-=-=-=-=- =-=-=-=-=-=-=-=-=-=-=-=-=-=-=-=-=-=-=-=-=-=-=-=-=-= - - - [...] Label: Lucas Meek Paperwork: Lucas Meek Cassette: [id number];..;KALYANI;.;405;[id number] Specimen is labeled: ES bx Received in formalin are several pieces of pale boyd and brown tissue, 1.2 x 0.7 cm in aggregate. Submitted entirely in 1 cassette [id number];..;KALYANI;.;405;[id number] SAW 12/15/2021 Microscopic exam: DIAGNOSIS: A. 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 Kendell long. TIARA Coombs was notified on 12/21/21. The attending pathologist who signature mansoor ears on this report has reviewed all diagnostic slides and has edited t he gross and/or microscopic portion of this report in rendering the final pathologic diagnosis. [address] [address] CPT: 57752 /emely/ NIURKA Yeung MD Signed Dec 21, 2021@11:46 Performing Laboratory: Surgical Pathology Report Performed By: [facility] [CLIA# [id number]] [address] [place] [address] $FTR - - - - - [...] - - LUCAS MEEK STANDARD FORM 515 ID:[id number] SEX:M :1950 AGE: 71 LOC: [facility] END PCP: Isatu Todd /charmaine Yeung MD Signed: 12/21/2021 11:46 Dec 06, 2021 03:30 PM LR MICROBIOLOGY REPORT: [facility] Reporting Lab: [facility] [CLIA# [id number]] [address] [place] [address] Accession [UID]: [id number] [[id number]] Receiv ed: Dec 06, 2021@16:14 Collection sample: BLOOD CUL T BOTTLE(NIRMAL/AERO)Collection date: Dec 06, 2021 15:30 Site/Specimen: BLOOD Provider: JELANI SÁNCHEZ Comment on specimen: LAC Test(s) ordered: BLOOD CULTURE ANAEROBI C....... completed: Dec 12, 2021 06:18 * BACTERIOLOGY FINAL REPORT => Dec 12, 2021 06:1 8 TECH CODE: [id number] Bacteriology Remark(s): NO GROWTH IN 5 DAYS =--=--=--=--=--=--=--=--=--=--=--=--=--= --=--=--=--=--=--=--=--=--=--=--=--=-- Performing Laboratory: Bacteriology Report Performed By: [facility] [CLIA# [id number]] [address] [place] [address] Dec 06, 2021 03:30 PM LR MICROBIOLOGY REPORT: [facility] Reporting Lab: [facility] [CLIA# [id number]] [address] [place] [address] Accession [UID]: [id number] [[id number]] Receiv ed: Dec 06, 2021@16:14 Collection sample: BLOOD CUL T BOTTLE(NIRMAL/AERO)Collection date: Dec 06, 2021 15:30 Site/Specimen: BLOOD Provider: JELANI SÁNCHEZ Comment on specimen: LAC Test(s) ordered: BLOOD CULTURE AEROBIC. ........ completed: Dec 12, 2021 06:17 * BACTERIOLOGY FINAL REPORT => Dec 12, 2021 06:1 7 TECH CODE: [id number] Bacteriology Remark(s): NO GROWTH IN 5 DAYS =--=--=--=--=--=--=--=--=--=--=--=--=--= --=--=--=--=--=--=--=--=--=--=--=--=-- Performing Laboratory: Bacteriology Report Performed By: [facility] [CLIA# [id number]] [address] [place] [address]
--- OUTSIDE RECORDS SUMMARY | 2022-01-19 09:18 | XMS_ITS ---
DAILY HOSPITALIZATION DATA [facility] Encounter Summary Created on:December 11, 2021 Patient:LUCAS MEEK Sex:Male :1950 Author Organization [facility] Address [address] [place] [id number] Support Name Relationship Address Phone YUSRA MEEK Unavailable [address] [place] [address] YUSRA MEEK Unavailable [address] [place] [address] CLAY MOSLEY Unavailable Unavailable SJ SANTACRUZ Unavailable [...] MEDICARE MEDICARE PART Jun 18, PART A [id number] DO KALYANI PATIENT (WNR) (M) A 2016 13A 1 U[place]AS MEDICARE MEDICARE PART Jun 18, PART B [id number] DO KALYANI PATIENT (WNR) (M) B 2016 13A 1 [place] MEDICARE MEDICARE PART Jun 18, PART A [id number] KALYANIDO PATIENT (WNR) (M) A 2017 VH81 2 [place]AS MEDICARE MEDICARE PART Jun 18, PART B [id number] DO KALYANI PATIENT (WNR) (M) B 2017 VH81 2 [place]AS UNITED MEDICARE MCR(Jun 18 [id number] Luz MEEK PATIENT HEALTHCARE ADVANTAGE NR) 2021 37 0 [facility] (WNR) Selected Encounter This section includes the information on record at [place] for the Encounter. Date/Time Encounter Type Encounter Description Reason Provider Source Dec 11, 2021 11:41 Inpatient Visit DAILY HOSPITALIZATION DATA PM IHE [...] 2022 10:00 AM AMBULATORY - SURGERY [place] [facility] Mar 21, [...] The data comes from all [place] [facility]. Test Date/Time Test Type Test Details Facility Name October 31, 2021 07:37 AM Consult Order COMM[facility]ITY [facility]-EGD [facility] November 15, 2021 10:37 AM Consult Order [facility] CARE-PODIATRY Cons [facility] Dec 06, 2021 12:52 PM Pharmacy [...] [place] OUTPATIENT Cons [facility] Jan 15, 2022 10:08 PM Consult Order [facility] CARE-PALLIATIVE CARE Cons [facility] Lab Results: +/- 30 days of [...] Reference Range Comment Dec 15, 2021 [place] P4 GLU,BUN,CREAT,LYTES,CA Speci men Type: PLASMA 06:43 AM [facility] Comment: Tests performed on OnApp (405) SN:[id number] Ordering Provid er: ISATU TODD Report Released Date/Time: Dec 11, 2021 07:42 AM Reporting Lab: [facility] T [facility] [address] [facility] [address] Performing Lab: [facility] [address] [facility] [facility] [address] UREA NITROGEN 9 7-25 SODIUM 137 135-145 [...] T [facility] [address] [facility] [facility] [address] Performing Lab: [facility] [address] [facility] [facility] [address] WBC 5.7 4.5-11.0 RBC 4.22 L 4.23-5.66 [...] Specimen Type: ESOPHAGUS 02:59 PM [facility] FISH([facility]) Comment: ~For T est: CYTOGENETIC FISH([facility]) ~FISH HER 2 NUE, FFPE See full report in [facility] Image display viewer/tab#LAB-Reference Ordering Provid er: NIURKA MILLER Report Released Date/Time: Dec 21, 2021 12:11 PM Reporting Lab: [facility] [address] [facility] [facility] [address] Performing Lab: [facility] CYTOGENETIC FISH([facility]) comment Dec 14, 2021 [facility] P4 GLU,BUN,CREAT,LYTES,CA Speci men Type: PLASMA 06:27 AM [facility] Comment: Tests performed on OnApp (405) SN:[id number] Ordering Provid er: ISATU TODD Report Released Date/Time: Dec 11, 2021 07:42 AM Reporting Lab: [facility] [address] [facility] [facility] [address] Performing Lab: [facility] [address] [facility] [address] UREA NITROGEN 10 7-25 SODIUM 137 135-145 [...] Reporting Lab: [facility] [address] [facility] [address] Performing Lab: [facility] [address] [facility] [facility] [address] WBC 6.0 4.5-11.0 RBC 4.29 4.23-5.66 HGB [...] [facility] Comment: Tests performed on OnApp (405) SN:[id number] Ordering Provid er: ISATU TODD Report Released Date/Time: Dec 11, 2021 07:42 AM Reporting Lab: [facility] [address] [facility] [address] Performing Lab: [facility] [address] [facility] [facility] [address] UREA NITROGEN 12 7-25 SODIUM 136 135-145 [...] Reporting Lab: [facility] [address] [facility] [facility] [address] Performing Lab: [facility] [address] [facility] [address] WBC 5.6 4.5-11.0 RBC 4.28 4.23-5.66 HGB [...] [facility] Comment: Tests performed on OnApp (405) SN:[id number] Ordering Provid er: ISATU TODD Report Released Date/Time: Dec 11, 2021 07:42 AM Reporting Lab: [facility] [address] [facility] [facility] [address] Performing Lab: [facility] [address] [facility] [facility] [address] UREA NITROGEN 11 7-25 SODIUM 139 135-145 [...] AM Reporting Lab: [facility] [address] [facility] [facility] [address] Performing Lab: [facility] [address] [facility] [facility] [address] WBC 5.5 4.5-11.0 RBC 4.37 4.23-5.66 HGB [...] 0.00 0-0 Dec 12, 2021 06:00 AM [place] ModeT [facility] MAGNESIUM Sp ecimen Type: PLASMA Comment: Testin g Performed on OnApp (405) SN:[id number] Ordering Provid er: ISATU TODD Report Released Date/Time: Dec 12, 2021 08:24 AM Reporting Lab: [place] [facility] [facility] [address] [facility] [facility] [address] Performing Lab: [facility] [place] GillBusT Live[facility]ercise[facility] [address] [facility] [facility] [address] MAGNESIUM 1.8 1.6-2.6 Dec 12, 2021 06:00 AM [place] ModeT [facility] PHOSPHORUS Sp ecimen Type: PLASMA Comment: Testin g Performed on OnApp (405) SN:[id number] Ordering Provid er: ISATU TODD Report Released Date/Time: Dec 12, 2021 08:24 AM Reporting Lab: [place] GillBusT [facility] [address] [facility] [address] Performing Lab: [place] GillBusT [facility] [address] [facility] [facility] [address] PHOSPHORUS 3.1 2.5-5.0 Dec 11, 2021 06:15 AM [facility] [place] GillBusT LiveExerciseMROC ELECTROLYTES Sp ecimen Type: PLASMA Comment: Tests performed on OnApp (405) SN:[id number] Ordering Provid er: ISATU TODD Report Released Date/Time: Dec 10, 2021 07:22 AM Reporting Lab: [place] GillBusT [facility] [address] [facility] [address] Performing Lab: [place] [facility]BusT [facility] [address] [facility] [facility] [address] SODIUM 137 135-145 POTASSIUM 4.3 3.5-5.0 CHLORIDE 108 100-110 CARBON DIOXIDE 20 20-30 ANION GAP 9 4-16 Dec 11, 2021 06:15 AM [place] PaiT [facility] CBC PROFILE Sp ecimen Type: BLOOD Comment: Result s checked Ordering Provid er: ISATU TODD Report Released Date/Time: Dec 10, 2021 07:22 AM Reporting Lab: [place] [facility] [address] [facility] [facility] [address] Performing Lab: [place] [facility] [address] [facility] [facility] [address] WBC 5.8 4.5-11.0 RBC 4.37 4.23-5.66 HGB [...] ecimen Type: PLASMA Comment: Tests performed on OnApp (617) SN:[id number] Results checked Ordering Provid er: ISATU TODD Report Released Date/Time: Dec 11, 2021 07:44 AM Reporting Lab: [facility] DU[facility]T [facility] [address] [facility] [facility] [address] Performing Lab: [place] OMEGAT NCMROC [address] [facility] [facility] [address] PHOSPHORUS 3.0 2.5-5.0 Dec 10, 2021 08:05 AM [place] [facility] MAGNESIUM Sp ecimen Type: PLASMA Comment: [place] [id number] on Dec 10, 2021@08:31 Tests performed on OnApp (405) SN:[id number] Ordering Provid er: ISATU TODD Report Released Date/Time: Dec 10, 2021 07:22 AM Reporting Lab: [place] [facility] [address] [place] [facility] [place] [address] Performing Lab: [place] [facility] [address] [place] [facility] [place] [address] MAGNESIUM 1.7 1.6-2.6 Dec 10, 2021 08:05 AM [place] [facility] PHOSPHORUS Sp ecimen Type: PLASMA Comment: [place] [id number] on Dec 10, 2021@08:31 Tests performed on OnApp (405) SN:[id number] Ordering Provid er: ISATU TODD Report Released Date/Time: Dec 10, 2021 07:22 AM Reporting Lab: [place] [facility] [address] [place] [facility] [place] [address] Performing Lab: [place] [facility] [address] [place] [facility] [place] [address] PHOSPHORUS 1.8 L 2.5-5.0 Dec 10, 2021 08:05 AM [place] UREA NITROGEN Specimen Type: PLASMA [facility] Comment: [place] [id number] on Dec 10, 2021@08:31 Tests performed on OnApp (405) SN:[id number] Ordering Provid er: ISATU TODD Report Released Date/Time: Dec 10, 2021 07:22 AM Reporting Lab: [place] [facility] [address] [place] [facility] [place] [address] Performing Lab: [place] [facility] [address] [place] [facility] [place] [address] UREA NITROGEN 8 7-25 Dec 10, 2021 08:05 AM [place] [facility] CALCIUM Sp ecimen Type: PLASMA Comment: [place] [id number] on Dec 10, 2021@08:31 Tests performed on OnApp (405) SN:[id number] Ordering Provid er: ISATU TODD Report Released Date/Time: Dec 10, 2021 07:22 AM Reporting Lab: [place] [facility] [address] [facility] [address] Performing Lab: [place] [facility] [address] [facility] [facility] [address] CALCIUM 8.3 L 8.5-10.5 Dec 10, 2021 08:05 [place] CREATININE WITH eGFR Specime n Type: PLASMA AM [facility] PANEL Comment: [place] [id number] on Dec 10, 2021@08:31 Tests performed on Pham CodeGlide, S.A. (405) SN:[id number] Ordering Provid er: ISATU TODD Report Released Date/Time: Dec 10, 2021 07:22 AM Reporting Lab: [place] [facility] [address] [facility] [address] Performing Lab: [place] [facility] [address] [facility] [facility] [address] CREATININE 0.78 0.5-1.5 eGFR(CKD-EPI 2020) >90.0 >60 Dec 10, 2021 08:05 AM [place] [facility] ELECTROLYTES Sp ecimen Type: PLASMA Comment: [place] [id number] on Dec 10, 2021@08:31 Tests performed on Pham CodeGlide, S.A. (405) SN:[id number] Ordering Provid er: ISATU TODD Report Released Date/Time: Dec 10, 2021 07:22 AM Reporting Lab: [place] [facility] [address] [facility] [address] Performing Lab: [place] [facility] [address] [facility] [address] SODIUM 139 135-145 POTASSIUM 3.7 3.5-5.0 CHLORIDE 107 100-110 CARBON DIOXIDE 24 20-30 ANION GAP 8 4-16 Dec 10, 2021 08:05 AM [place] [facility] GLUCOSE Sp ecimen Type: PLASMA Comment: [place] [id number] on Dec 10, 2021@08:31 Tests performed on Pham CodeGlide, S.A. (405) SN:[id number] Ordering Provid er: ISATU TODD Report Released Date/Time: Dec 10, 2021 07:22 AM Reporting Lab: [place] [facility] [address] [facility] [address] Performing Lab: [place] [facility] [address] [facility] [address] GLUCOSE 144 H 65-100 Dec 10, 2021 08:05 AM [facility] CBC PROFILE Sp ecimen Type: BLOOD No comment enter ed. Ordering Provid er: ISATU TODD Report Released Date/Time: Dec 10, 2021 07:22 AM Reporting Lab: [place] [facility] [address] [facility] [address] Performing Lab: [place] [facility] [address] [facility] [address] WBC 7.0 4.5-11.0 RBC 4.54 4.23-5.66 HGB [...] ecimen Type: PLASMA Comment: Tests performed on OnApp (455) SN:[id number] Ordering Provid er: ISATU TODD Report Released Date/Time: Dec 08, 2021 10:23 AM Reporting Lab: [facility] [address] [facility] [address] Performing Lab: [facility] [address] [facility] [facility] [address] MAGNESIUM 1.6 1.6-2.6 Dec 09, 2021 [facility] P4 GLU,BUN,CREAT,LYTES,CA Speci men Type: PLASMA 06:46 AM [facility] Comment: Tests performed on OnApp (405) SN:[id number] Ordering Provid er: ISATU TODD Report Released Date/Time: Dec 08, 2021 05:00 PM Reporting Lab: [facility] [address] [facility] [facility] [address] Performing Lab: [facility] [address] [facility] [facility] [address] UREA NITROGEN 6 L 7-25 SODIUM 134 [...] Reporting Lab: [facility] [address] [facility] [facility] [address] Performing Lab: [facility] [address] [facility] [address] WBC 7.1 4.5-11.0 RBC 4.40 4.23-5.66 HGB [...] 0.00 0-0 Dec 08, 2021 06:39 AM [place] T [facility] MAGNESIUM Sp ecimen Type: PLASMA Comment: Testin g Performed on OnApp (405) SN:[id number] Ordering Provid er: ISATU TODD Report Released Date/Time: Dec 07, 2021 10:32 AM Reporting Lab: [facility] [address] [facility] [facility] [address] Performing Lab: [facility] [address] [facility] [facility] [address] MAGNESIUM 1.5 L 1.6-2.6 Dec 08, 2021 [place] P4 GLU,BUN,CREAT,LYTES,CA Speci men Type: PLASMA 06:39 AM [facility] Comment: Testin g Performed on OnApp (405) SN:[id number] Ordering Provid er: ISATU TODD Report Released Date/Time: Dec 07, 2021 10:32 AM Reporting Lab: [employer] T [facility] [address] [facility] [address] Performing Lab: [facility] [address] [facility] [facility] [address] UREA NITROGEN 6 L 7-25 SODIUM 136 135-145 POTASSIUM 3.3 L 3.5-5.0 CHLORIDE 104 100-110 CARBON DIOXIDE 22 20-30 ANION GAP 10 4-16 GLUCOSE 133 H 65-100 CREATININE 0.76 0.5-1.5 CALCIUM 8.4 L 8.5-10.5 eGFR(CKD-EPI 2020) >90.0 >60 Dec 08, 2021 06:39 AM [place] [facility] CBC PROFILE Sp ecimen Type: BLOOD No comment enter ed. Ordering Provid er: ISATU TODD Report Released Date/Time: Dec 07, 2021 10:32 AM Reporting Lab: [facility] [address] [facility] [facility] [address] Performing Lab: [facility] [address] [facility] [facility] WBC 8.4 [...] [facility] Comment: Tests performed on OnApp (405 SN:[id number] Ordering Provid er: PORFIRIO WALTERS Report Released Date/Time: Dec 06, 2021 06:57 PM Reporting Lab: [facility] [address] [facility] [facility] [address] Performing Lab: [facility] [address] [facility] [facility] [address] PROTEIN, TOTAL 5.7 L 6.0-8.5 ALBUMIN 2.4 L 3.2-5.0 BILIRUBIN, TOTAL 0.4 0.2-1.2 ALKALINE PHOSPHATASE 109 40-150 ALT(SGPT) 10 7-52 AST(SGOT) 15 5-34 FIB-4 SCORE 1.92 <2.67 Dec 07, 2021 [facility] P4 GLU,BUN,CREAT,LYTES,CA Speci men Type: PLASMA 06:42 AM [facility] Comment: Tests performed on OnApp (405) SN:[id number] Ordering Provid er: PORFIRIO WALTERS Report Released Date/Time: Dec 06, 2021 06:57 PM Reporting Lab: [place] [facility] [address] [facility] [address] Performing Lab: [place] [facility] [address] [facility] [address] UREA NITROGEN 9 7-25 SODIUM 135 135-145 POTASSIUM 3.5 3.5-5.0 CHLORIDE 103 100-110 CARBON DIOXIDE 22 20-30 ANION GAP 10 4-16 GLUCOSE 92 65-100 CREATININE 0.73 0.5-1.5 CALCIUM 8.0 L 8.5-10.5 eGFR(CKD-EPI 2020) >90.0 >60 Dec 07, 2021 06:42 AM [place] CBC PROFILE Specimen Type: BLOOD [facility] No comment enter ed. Ordering Provid er: PORFIRIO WALTERS Report Released Date/Time: Dec 06, 2021 06:57 PM Reporting Lab: [place] [facility] [address] [facility] [address] Performing Lab: [facility] [address] [facility] [facility] [address] WBC 5.7 4.5-11.0 RBC 4.15 L 4.23-5.66 [...] [facility] %) AUTOMATED Comment: Tests performed on OnApp (405) SN:[id number] Ordering Provid er: ISATU TODD Report Released Date/Time: Dec 07, 2021 10:28 AM Reporting Lab: [place] [facility] [address] [facility] [address] Performing Lab: [place] [facility] [address] [facility] [address] RETICULOCYTES (%) AUTOMATED 1.23 0. 6-2.0 RETICULOCYTES (ABS) AUTOMATED 0.052 0.030-0.090 Dec 06, 2021 09:45 [place] MRSA SURVL NARES Specimen Ty pe: NARES PM [facility] DNA No comment enter ed. Ordering Provid er: ALVARO VARGHESE Report Released Date/Time: Dec 07, 2021 02:20 AM Reporting Lab: [place] [facility] [address] [facility] [address] Performing Lab: [place] [facility] [address] [facility] [address] MRSA SURVL NARES DNA NEGATIVE NEGATIVE Dec 06, 2021 06:00 [place] URINALYSIS W/REFLEX TO Speci men Type: URINE PM [facility] CULTURE No comment enter ed. Ordering Provid er: JELANI SÁNCHEZ Report Released Date/Time: Dec 06, 2021 11:57 AM Reporting Lab: [place] [facility] [address] [facility] [address] Performing Lab: [place] [facility] [address] [facility] [address] URINE COLOR Arlin YELLOW SPECIFIC GRAVITY 1.029 [...] 21, [place] Comment: https://www.cdc.gov/coronavirus/2019-ncov/cases-updates/variant- surveillance/variant-info.html The [employer] SARS CoV 2 [employer] Research Assay-GX is a next-generation sequencing (NGS) assa 2021 [facility] SEQUENCING y that determine s the complete genome sequence of the SARS-CoV-2 virus. The assay contains variant-tolerant primers to broaden and improve the coverage for variant detection and increase the sensitivity 12:00 [facility] PNL(WH) of the panel to enable detection from lower viral titer samples. The assay is run on the [employer] Sequencer, which performs automated library preparation, sequencing, analysis, and reporting. PM The sequence an alysis includes determination of viral phylogenetic lineage by comparison to the reference strain Wuhan-Hu-1, GenBank: [id number]. Sequence determination may not be possible owing [...] and its performance characteristics determined by the [facility] Molecular Diagnostics Laboratory, which is certified under the Clinical Laboratory Improveme nt Amendments (C MARCO) as qualified to perform high complexity clinical laboratory testing. This test is validated for clinical use at [facility] and should not be regarded [...] [facility] [address] [facility] [facility] [address] Performing Lab: [facility] [address] [facility] [address] SARS-CoV-2 CLADE() 22C (OMICRON) SARS-CoV-2 LINEAGE() BA.2.12.1 Dec 06, 2021 12:00 [facility] COVID-19 AG SCREEN Specimen Type: NASAL CAVITY PM [facility] PANEL BINAX(405) Comment: Testi ng Performed By: Mike Briscoe Ordering Provid er: JELANI SÁNCHEZ Report Released Date/Time: Dec 08, 2021 08:23 AM Reporting Lab: [facility] [address] [facility] [address] Performing Lab: [facility] [address] [facility] [address] COVID-19 AG SCRN(wrj BINAX) POSITIVE HH NE G Dec 06, 2021 12:00 PM [facility] LIVER PROFILE Sp ecimen Type: PLASMA Comment: Testin g Performed on Pham Roof Panel Hanger (405) SN:[id number] Ordering Provid er: JELANI SÁNCHEZ Report Released Date/Time: Dec 06, 2021 11:57 AM Reporting Lab: [facility] [address] [facility] [address] Performing Lab: [facility] [address] [facility] [address] PROTEIN, TOTAL 6.6 6.0-8.5 ALBUMIN 2.8 L 3.2-5.0 BILIRUBIN, TOTAL 0.6 0.2-1.2 ALKALINE PHOSPHATASE 134 40-150 ALT(SGPT) 13 7-52 AST(SGOT) 18 5-34 FIB-4 SCORE 1.94 <2.67 Dec 06, 2021 12:00 PM [facility] TROPON[facility] Sp ecimen Type: PLASMA Comment: Tests performed on Pham Roof Panel Hanger (405) SN:[id number] Ordering Provid er: JELANI SÁNCHEZ Report Released Date/Time: Dec 06, 2021 11:57 AM Reporting Lab: [facility] [address] [facility] [address] Performing Lab: [facility] [address] [facility] [address] TROPONIN II 0.03 0.00-0.29 Dec 06, 2021 [facility] P4 GLU,BUN,CREAT,LYTES,CA Speci men Type: PLASMA 12:00 PM [facility] Comment: Testin g Performed on Pham Roof Panel Hanger (405) SN:[id number] Ordering Provid er: JELANI SÁNCHEZ Report Released Date/Time: Dec 06, 2021 11:57 AM Reporting Lab: [facility] T [facility] [address] [facility] [address] Performing Lab: [facility] [address] [facility] [address] UREA NITROGEN 13 7-25 SODIUM 138 135-145 POTASSIUM 3.8 3.5-5.0 CHLORIDE 103 100-110 CARBON DIOXIDE 23 20-30 ANION GAP 12 4-16 GLUCOSE 105 H 65-100 CREATININE 0.90 0.5-1.5 CALCIUM 8.7 8.5-10.5 eGFR(CKD-EPI 2020) >90.0 >60 Dec 06, 2021 12:00 PM [facility] BNP(P) Sp ecimen Type: PLASMA Comment: Tests performed on Pham Roof Panel Hanger (405) SN:[id number] Ordering Provid er: JELANI SÁNCHEZ Report Released Date/Time: Dec 06, 2021 11:57 AM Reporting Lab: [facility] [address] [facility] [address] Performing Lab: [facility] [place] T [facility] [address] [facility] [address] BNP(P) 224.8 H 10-100 Dec 06, 2021 [place] COVID-19+FLU/RSV DIAGNOSTIC Spe cimen Type: NASOPHARYNX 12:00 PM [facility] PANEL(405) Comment: Tests performed on KupiBonusxpert (405) Critical results called to and read back by: ALESHIA WILKINSON RN 12/06/21 @ 1312 Ordering Provid er: JELANI SÁNCHEZ Report Released Date/Time: Dec 06, 2021 11:57 AM Reporting Lab: [place] T [facility] [address] [facility] [address] Performing Lab: [place] [facility] [address] [facility] [address] FLU A(PCR) NEGATIVE NEGATIVE FLU B(PCR) NEGATIVE NEGATIVE RSV(PCR) NEGATIVE NEGATIVE COVID-19([id number]) DETECTED HH NO T DETECTED Dec 06, 2021 12:00 PM [facility] CBC PROFILE Sp ecimen Type: BLOOD No comment enter ed. Ordering Provid er: JELANI SÁNCHEZ Report Released Date/Time: Dec 06, 2021 11:57 AM Reporting Lab: [facility] [address] [facility] [address] Performing Lab: [facility] [address] [facility] [address] WBC 7.2 4.5-11.0 RBC 4.86 4.23-5.66 HGB [...] 2021 07:56 /min mm[Hg] [place] PM T [facility] Dec 11, 3 WHITE 2021 07:49 [place] PM T [facility] Dec 11, 98.3 F 98 127/83 18 /min 97 % 0 WHITE 2021 02:50 /min mm[Hg] RIVER PM T [facility] Dec 11, 0 WHITE 2021 01:57 [place] PM T [facility] Dec 11, 0 WHITE 2021 08:49 [place] AM [facility] Social History: [...] took place. Date/Time Smoking Status/Tobacco Use Comment [facility] Apr 01, 2020 01:16 PM [...] TOBACCO USE IN PAST YEAR [facility] MONTO[facility] Mar 16, 2016 12:50 PM [...] W/WO CONTRAST: MARYELLEN LONG LUCAS LARES N [id number] -[id number] [facility] Exm Date: DEC 13, 2021@12:57 Req Phys: ISATU TODD Loc: OP Unknown/0 12-15-2021@13:20 Img Loc: MRI IMAGING (OOS) Service: ZGENERAL MEDICINE (Case [id number] COMPLETE) MRI ABDOMEN W/WO CONTRAST (M RI Detailed) CPT:87386 Reason for Study: further characterization of a [...] new lyphadenopathy REQUESTING MD: Isatu Todd PAGER: [phone] PHONE: [phone] Weight: 232.2 lb [105.32 kg] (12/12/2021 05:00) [...] 15, 2021 Date Verified: DEC 15, 2021 Animal Services Officer E-Sig:/ES/MARYELLEN LONG Report: MRI ABDOMEN W/WO [...] MALIGNANCY Primary Interpreting Staff: Staff AMELIA THOMAS (Animal Services Officer) / Dec 10, 2021 09:[address] ABDOMEN & PELVIS: [facility] LUC[facility]EEK N [id number] -1950 M SERVICE [facility] Exm Date: DEC 10, 2021@09:30 Req Phys: ISATU TODD Loc: 1S MED/12-10@10:57 Img Loc: CT SCAN (OOS) Service: [facility] MEDICINE (Case [id number] COMPLETE) CT ABD & PELVIS WITHOUT CONT RAST (CT Detailed) CPT:51050 Reason for Study: 71 yo male with [...] INDEX - NO HEIGHTS FOUND Pager number: [phone] STAT orders MUST be call ed to RADIOLOGY [phone] to speak to the appropriate biological lab technician. Report Status: Verified Date Reported: DEC 10, 2021 Date Verified: DEC 10, 2021 Animal Services Officer E-Sig: Report: EXAM: CT abdomen and [...] ph nodes. READING PHYSICIAN: Ramone Munoz D.O. -[phone] 12/10/2021 10:55 EDT [facility] National Teleradiology Program [phone] (For Medical Practitioner Use Only ) [address] [facility], [facility] [address], [address] [place] [address] Attention Patients / Veterans: If you have ques tions or concerns about these test results, please contact your o rdering provider or primary care team. Primary Diagnostic Code: SIGNIFICANT ABNORMALIT Y, ATTN NEEDED Primary Interpreting Staff: RADIOLOGY,OUTSIDE SERVICE, Staff Physician / Dec 09, 2021 07:34 AM BASW (MODIFIED): JESSIE CHENEY TARA [facility] LUCAS MEEK [id number] -1950 M [facility] Exm Date: DEC 09, 2021@07:34 Req Phys: ISATU TODD Yao Manjarrez Loc: 1S MED/12-09@11:26 Img Loc: XRAY (OOS) Service: [facility] MEDICINE (Case [id number] COMPLETE) BASW (MODIFIED) (RAD Detaile d) CPT:23588 Contrast Media : Barium Reason for Study: dysphagia ?esophageal spasm Clinical History: Report Status: Verified Date Reported: DEC 09, 2021 Date Verified: DEC 09, 2021 Animal Services Officer E-Sig:/ES/JESSIE CHENEY Report: BASW (MODIFIED) , [...] REQUIRED Primary Interpreting Staff: JESSIE CHENEY, RADIOLOGIST (Animal Services Officer) /TLC Dec 06, 2021 12:[address] CHEST (INCLUDES ADRENALS): [facility]ENEY [id number] -1950 [facility] Exm Date: DEC 06, 2021@12:59 Req Phys: GONZALOJELANI Loc: [facility] ED DAYS M 1RD (Req'g Loc) Img Loc: CT SCAN (OOS) Service: Unknown (Case [id number] COMPLETE) CT THORAX W/O CONT (CT Detai led) CPT:67313 Reason for Study: Opacification right chest Clinical History: No contrast allergy BUN: 13 (12/06/21 12:00) CREATI: 0.90 (12/06/21 12:00) eGFR 05/16/21 09:43 52 L Weight: 232.6 lb [105.51 kg] (12/06/2021 11:40) BODY MASS INDEX - NO HEIGHTS FOUND Pager number: [phone] STAT orders MUST be called t o RADIOLOGY [phone] to speak to the appropriate biological lab technician. Indications - Other: Opacification right chest, covid positive, lung cancer histo Report Status: Verified Date Reported: DEC 06, 2021 Date Verified: DEC 06, 2021 Animal Services Officer E-Sig:/ES/JESSIE CHENEY Report: CT THORAX W/O [...] REQUIRED Primary Interpreting Staff: JESSIE CHENEY, RADIOLOGIST (Animal Services Officer) Primary Interpreting Resident: PRINCE CHAMPION, Resident /BR Dec 06, 2021 11:58 AM CHEST SINGLE VIEW: JESSIE CHENEYT LUCAS MEEK N [id number] -1950 M [facility] Exm Date: DEC 06, 2021@11:58 Req Phys: JELANI SÁNCHEZ Pat Loc: [facility] ED DAYS M 1RD (Req'g Loc) Img Loc: XRAY (OOS) Service: Unknown (Case [id number] COMPLETE) CHEST SINGLE VIEW (RAD Detai led) CPT:01096 Proc Modifiers : PORTABLE EXAM Reason for Study: SOB, home covid test positive Clinical History: Report Status: Verified Date Reported: DEC 06, 2021 Date Verified: DEC 06, 2021 Animal Services Officer E-Sig:/ES/JESSIE CHENEY Report: Exam type: Chest [...] REQUIRED Primary Interpreting Staff: JESSIE CHENEY, RADIOLOGIST (Animal Services Officer) /TLC Pathology Reports: +/- 30 days [...] Lab: [facility] [CLIA# [id number]] [address] [place] [address] - - - - - - [...] automatically d ocumented from SURGERY package case #[id number] Field (#32) PRINCIPAL PRE-OP DIAGNOSIS, (#.72) OTHER [...] automatically d ocumented from SURGERY package case #[id number] Field (#34) PRINCIPAL POST-OP DIAG, (#.74) OTHER [...] Label: Lucas Meek Paperwork: Lucas Meek Cassette: [id number];..;KALYANI;.;405;[phone] Specimen is labeled: ES bx Received in formalin are several pieces of pale boyd and brown tissue, 1.2 x 0.7 cm in aggregate. Submitted entirely in 1 cassette [id number];..;KALYANI;.;405;[id number] SAW 12/15/2021 Microscopic exam: *+* MODIFIED REPORT *+* (Last modified: JAN 03, 2022@09:30:20 typed by NIURKA WADDELL) DIAGNOSIS: A. 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 Kendell long. TIARA Coombs was notified on 12/21/21. Modified on 01/03/22 to include report from [facility] stating that tumor is NEGATIVE for her2/ matheus amplification. The attending pathologist who signature mansoor ears on this report has reviewed all diagnostic slides and has edited t he gross and/or microscopic portion of this report in rendering the final pathologic diagnosis. [address] [address] CPT: 64843 /emely/ NIURKA Yeung MD Signed Jan 03, 2022@10:28 Performing Laboratory: Surgical Pathology Report Performed By: [facility] [CLIA# [id number]] [address] [place] [id number] $FTR - - - - - [...] - - LUCAS MEEK STANDARD FORM 515 ID:[id number] SEX:M :1950 AGE: 71 LOC: [facility] END PCP: Isatu Todd /emely/ NIURKA MILLER Staff Signed: 01/03/2022 10:28 Dec 21, 2021 11:46 AM LR SURGICAL PATHOLOGY REPORT: STEFANY MILLER [facility] LOCAL TITLE: LR SURGICAL PATHOLOGY REPORT [facility] STANDARD TITLE: PATHOLOGY REPORT DATE OF NOTE: DEC 21, 2021@11:46:59 ENTRY DATE: DEC 21, 2021@11:46:59 AUTHOR: NIURKA MILLER EXP COSIGNER: URGENCY: STATUS: COMPLETED $APHDR Reporting Lab: [facility] [CLIA# [id number]] [address] [place] [address] - - - - - - [...] automatically d ocumented from SURGERY package case #[id number] Field (#32) PRINCIPAL PRE-OP DIAGNOSIS, (#.72) OTHER [...] automatically d ocumented from SURGERY package case #[id number] Field (#34) PRINCIPAL POST-OP DIAG, (#.74) OTHER [...] Label: Lucas Meek Paperwork: Lucas Meek Cassette: [id number];..;KALYANI;.;405;[id number] Specimen is labeled: ES bx Received in formalin are several pieces of pale boyd and brown tissue, 1.2 x 0.7 cm in aggregate. Submitted entirely in 1 cassette [id number];..;KALYANI;.;405;[id number] SAW 12/15/2021 Microscopic exam: DIAGNOSIS: A. 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 Kendell long. TIARA Coombs was notified on 12/21/21. The attending pathologist who signature mansoor ears on this report has reviewed all diagnostic slides and has edited t he gross and/or microscopic portion of this report in rendering the final pathologic diagnosis. [address] [address] CPT: 50896 /emely/ NIURKA Yeung MD Signed Dec 21, 2021@11:46 Performing Laboratory: Surgical Pathology Report Performed By: [facility] [CLIA# [id number]] [address] [place] [address] $FTR - - - - - [...] - - LUCAS MEEK STANDARD FORM 515 ID:[id number] SEX:M :1950 AGE: 71 LOC: [facility] END PCP: Isatu Todd /charmaine Yenug MD Signed: 12/21/2021 11:46 Dec 06, 2021 03:30 PM LR MICROBIOLOGY REPORT: [facility] Reporting Lab: [facility] [CLIA# [id number]] [address] [place] [address] Accession [UID]: [id number] [[id number]] Receiv ed: Dec 06, 2021@16:14 Collection sample: BLOOD CUL T BOTTLE(NIRMAL/AERO)Collection date: Dec 06, 2021 15:30 Site/Specimen: BLOOD Provider: JELANI SÁNCHEZ Comment on specimen: LAC Test(s) ordered: BLOOD CULTURE ANAEROBI C....... completed: Dec 12, 2021 06:18 * BACTERIOLOGY FINAL REPORT => Dec 12, 2021 06:1 8 TECH CODE: [id number] Bacteriology Remark(s): NO GROWTH IN 5 DAYS =--=--=--=--=--=--=--=--=--=--=--=--=--= --=--=--=--=--=--=--=--=--=--=--=--=-- Performing Laboratory: Bacteriology Report Performed By: [facility] [CLIA# [id number]] [address] [place] [address] Dec 06, 2021 03:30 PM LR MICROBIOLOGY REPORT: [facility] Reporting Lab: [facility] [CLIA# [id number]] [address] [place] [address] Accession [UID]: [id number] [[id number]] Receiv ed: Dec 06, 2021@16:14 Collection sample: BLOOD CUL T BOTTLE(NIRMAL/AERO)Collection date: Dec 06, 2021 15:30 Site/Specimen: BLOOD Provider: JELANI SÁNCHEZ Comment on specimen: LAC Test(s) ordered: BLOOD CULTURE AEROBIC. ........ completed: Dec 12, 2021 06:17 * BACTERIOLOGY FINAL REPORT => Dec 12, 2021 06:1 7 TECH CODE: [id number] Bacteriology Remark(s): NO GROWTH IN 5 DAYS =--=--=--=--=--=--=--=--=--=--=--=--=--= --=--=--=--=--=--=--=--=--=--=--=--=-- Performing Laboratory: Bacteriology Report Performed By: [facility] [CLIA# [id number]] [address] [place] [address]
--- OUTSIDE RECORDS SUMMARY | 2022-01-19 09:18 | XMS_ITS ---
DAILY HOSPITALIZATION DATA [facility] Encounter Summary Created on:December 12, 2021 Patient:LUCAS MEEK Sex:Male :[address] [facility] Address [address] [place] [id number] Support Name Relationship Address Phone YUSRA MEEK Unavailable [address] [place] [address] YUSRA MEEK Unavailable [address] [place] [facility] [place] [address] CLAY MOSLEY Unavailable Unavailable SJ SANTACRUZ Unavailable [...] MEDICARE MEDICARE PART Jun 18, PART A [id number] DO KALYANI PATIENT (WNR) (M) A 2016 13A 1 U[place]AS MEDICARE MEDICARE PART Jun 18, PART B [id number] DO KALYANI PATIENT (WNR) (M) B 2016 13A 1 [place]AS MEDICARE MEDICARE PART Jun 18, PART A [id number] KALYANIDO PATIENT (WNR) (M) A 2017 VH81 2 [place]AS MEDICARE MEDICARE PART Jun 18, PART B [id number] DO KALYANI PATIENT (WNR) (M) B 2017 VH81 2 [place]AS UNITED MEDICARE MCR(Jun 18 [id number] Luz MEEK PATIENT HEALTHCARE ADVANTAGE NR) 2021 37 0 [facility] (WNR) Selected Encounter This section includes the information on record at [place] for the Encounter. Date/Time Encounter Type Encounter Description Reason Provider Source Dec 12, 2021 12:24 Inpatient Visit DAILY HOSPITALIZATION DATA AM [facility] [...] [place] [facility] Jan 10, 2022 11:30 AM AMBULATORY - MEDICINE [facility] Jan 24, 2022 08:00 AM [place] [facility] Feb 21, 2022 10:00 AM [place]UL[place] [facility] Mar 21, [...] The data comes from all [place] treatment [facility]. Test Date/Time Test Type Test Details Facility Name October 31, 2021 07:37 AM Consult Order COMMUNITY CARE-EGD [facility] Cons [facility] November 15, 2021 10:37 AM Consult Order [facility] CARE-PODIATRY Cons [place] Dec 06, 2021 12:52 PM [place]acy [place] Infusion Order [facility] Dec 06, 2021 03:24 PM [place]acy [place] [facility] Dec 06, 2021 03:40 PM [place]acy [place] [facility] Dec 15, 2021 08:41 AM Consult Order SPEECH PATHOLOGY [place] Cons [facility] Jan 15, 2022 10:08 PM Consult Order [facility] CARE-PALLIATIVE CARE Cons [place] [facility] Lab Results: +/- 30 days of [...] Range Comment Dec 15, 2021 [place] P4 GLU,BUN,CREAT,LYTES,CA Speci men Type: PLASMA 06:43 AM [facility] Comment: Tests performed on [employer] (405) SN:[id number] Ordering Provid er: ISATU TODD Report Released Date/Time: Dec 11, 2021 07:42 AM Reporting Lab: [facility] [address] [facility] [address] Performing Lab: [facility] [address] [facility] [address] UREA NITROGEN 9 7-25 SODIUM 137 135-145 POTASSIUM 3.8 3.5-5.0 CHLORIDE 105 100-110 CARBON DIOXIDE 26 20-30 ANION GAP 6 4-16 GLUCOSE 102 H 65-100 CREATININE 0.64 0.5-1.5 CALCIUM 8.1 L 8.5-10.5 eGFR(CKD-EPI 2020) >90.0 >60 Dec 15, 2021 06:43 AM [facility] CBC PROFILE Sp ecimen Type: BLOOD No comment enter ed. Ordering Provid er: ISATU TODD Report Released Date/Time: Dec 10, 2021 07:22 AM Reporting Lab: [facility] [address] [facility] [address] Performing Lab: [facility] [address] [facility] [address] WBC 5.7 4.5-11.0 RBC 4.22 L 4.23-5.66 [...] ABSOLUTE NRBC 0.00 0-0 Dec 14, 2021 [facility] CYTOGENETIC Specimen Type: ESOPHAGUS 02:59 PM [facility] Comment: ~For T est: CYTOGENETIC FISH([facility] ~FISH HER 2 NUE, FFPE See full report in SSN Funding Image display viewer/tab#LAB-Reference Ordering Provid er: NIURKA MILLER Report Released Date/Time: Dec 21, 2021 12:11 PM Reporting Lab: [facility] [address] [facility] [address] Performing Lab: [facility] CYTOGENETIC FISH([facility] comment Dec 14, 2021 [facility] P4 GLU,BUN,CREAT,LYTES,CA Speci men Type: PLASMA 06:27 AM [facility] Comment: Tests performed on [employer] (405) SN:[id number] Ordering Provid er: ISATU TODD Report Released Date/Time: Dec 11, 2021 07:42 AM Reporting Lab: [facility] [address] [facility] [address] Performing Lab: [facility] [address] [facility] [address] UREA NITROGEN 10 7-25 SODIUM 137 135-145 [...] [facility] [address] [facility] [address] Performing Lab: [facility] [address] [facility] [address] WBC 6.0 4.5-11.0 RBC 4.29 4.23-5.66 HGB [...] ABSOLUTE NRBC 0.00 0-0 Dec 13, 2021 [facility] P4 GLU,BUN,CREAT,LYTES,CA Speci men Type: PLASMA 06:34 AM [facility] Comment: Tests performed on [employer] (405) SN:[id number] Ordering Provid er: ISATU TODD Report Released Date/Time: Dec 11, 2021 07:42 AM Reporting Lab: [facility] [address] [facility] [address] Performing Lab: [facility] [address] [facility] [address] UREA NITROGEN 12 7-25 SODIUM 136 135-145 [...] [facility] [address] [facility] [address] Performing Lab: [facility] [address] [facility] [address] WBC 5.6 4.5-11.0 RBC 4.28 4.23-5.66 HGB [...] ABSOLUTE NRBC 0.00 0-0 Dec 12, 2021 [facility] P4 GLU,BUN,CREAT,LYTES,CA Speci men Type: PLASMA 06:21 AM [facility] Comment: Tests performed on [employer] (405) SN:[id number] Ordering Provid er: ISATU TODD Report Released Date/Time: Dec 11, 2021 07:42 AM Reporting Lab: [facility] [address] [facility] [address] Per[facility]: [facility] [address] [facility] [address] UREA NITROGEN 11 7-25 SODIUM 139 135-145 [...] 07:22 AM Reporting Lab: [facility] [address] [facility] [address] Performing Lab: [facility] [address] [facility] [address] WBC 5.5 4.5-11.0 RBC 4.37 4.23-5.66 HGB [...] 0.00 0-0 Dec 12, 2021 06:[address] [facility] MAGNESIUM Sp ecimen Type: PLASMA Comment: Testin g Performed on [employer] (405) SN:[id number] Ordering Provid er: ISATU TODD Report Released Date/Time: Dec 12, 2021 08:24 AM Reporting Lab: [place] gauzzT [facility] [address] [facility] [address] Performing Lab: [facility] [place] gauzzT [facility] [address] [facility] [address] MAGNESIUM 1.8 1.6-2.6 Dec 12, 2021 06:[address] [facility] PHOSPHORUS Sp ecimen Type: PLASMA Comment: Testin g Performed on [employer] (405) SN:[id number] Ordering Provid er: ISATU TODD Report Released Date/Time: Dec 12, 2021 08:24 AM Reporting Lab: [place] gauzzT [facility] [address] [facility] [address] Performing Lab: [place] gauzzT [facility] [address] [facility] [address] PHOSPHORUS 3.1 2.5-5.0 Dec 11, 2021 06:15 AM [place] [place] gauzzT [facility] ELECTROLYTES Sp ecimen Type: PLASMA Comment: Tests performed on [employer] (405) SN:[id number] Ordering Provid er: ISATU TODD Report Released Date/Time: Dec 10, 2021 07:22 AM Reporting Lab: [place] gauzzT [facility] [address] [facility] [address] Performing Lab: [place] gauzzT [facility] [address] [facility] [address] SODIUM 137 135-145 POTASSIUM 4.3 3.5-5.0 CHLORIDE 108 100-110 CARBON DIOXIDE 20 20-30 ANION GAP 9 4-16 Dec 11, 2021 06:15 AM [facility]ITE [facility] [employer] CBC PROFILE Sp ecimen Type: BLOOD Comment: Result s checked Ordering Provid er: ISATU TODD Report Released Date/Time: Dec 10, 2021 07:22 AM Reporting Lab: [place] [facility] [address] [facility] [address] Performing Lab: [facility] [place] OMEGAT [facility] [address] [facility] [address] WBC 5.8 4.5-11.0 RBC 4.37 4.23-5.66 HGB [...] ecimen Type: PLASMA Comment: Tests performed on [employer] (811) SN:[id number] Results checked Ordering Provid er: ISATU TODD Report Released Date/Time: Dec 11, 2021 07:44 AM Reporting Lab: [facility] [address] [facility] [address] Performing Lab: [place] OMEGAT [facility] [address] [facility] [address] PHOSPHORUS 3.0 2.5-5.0 Dec 10, 2021 08:05 AM [place] [facility] MAGNESIUM Sp ecimen Type: PLASMA Comment: [place] [id number] on Dec 10, 2021@08:31 Tests performed on [employer] (405) SN:[id number] Ordering Provid er: ISATU TODD Report Released Date/Time: Dec 10, 2021 07:22 AM Reporting Lab: [place] [facility] [address] [facility] [address] Performing Lab: [place] [facility] [address] [place] [facility] [place] [place] [address] MAGNESIUM 1.7 1.6-2.6 Dec 10, 2021 08:05 AM [place] UREA NITROGEN Specimen Type: PLASMA [facility] Comment: [place] [id number] on Dec 10, 2021@08:31 Tests performed on [employer] (405) SN:[id number] Ordering Provid er: ISATU TODD Report Released Date/Time: Dec 10, 2021 07:22 AM Reporting Lab: [place] [facility] [address] [place] [facility] [place] [place] [address] Performing Lab: [place] [facility] [address] [place] [facility] [place] [place] [address] UREA NITROGEN 8 7-25 Dec 10, 2021 08:05 AM [place] [facility] GLUCOSE Sp ecimen Type: PLASMA Comment: [place] [id number] on Dec 10, 2021@08:31 Tests performed on [employer] (405) SN:[id number] Ordering Provid er: ISATU TODD Report Released Date/Time: Dec 10, 2021 07:22 AM Reporting Lab: [place] [facility] [address] [place] [facility] [place] [place] [address] Performing Lab: [place] [facility] [address] [place] [facility] [place] [place] [address] GLUCOSE 144 H 65-100 Dec 10, 2021 08:05 AM [place] [facility] PHOSPHORUS Sp ecimen Type: PLASMA Comment: [place] [id number] on Dec 10, 2021@08:31 Tests performed on [employer] (405) SN:[id number] Ordering Provid er: ISATU TODD Report Released Date/Time: Dec 10, 2021 07:22 AM Reporting Lab: [place] [facility] [address] [place] [facility] [place] [place] [address] Performing Lab: [place] [facility] [address] [place] [facility] [place] [place] [address] PHOSPHORUS 1.8 L 2.5-5.0 Dec 10, 2021 08:05 AM [place] [facility] CALCIUM Sp ecimen Type: PLASMA Comment: [place] [id number] on Dec 10, 2021@08:31 Tests performed on [employer] (405) SN:[id number] Ordering Provid er: ISATU TODD Report Released Date/Time: Dec 10, 2021 07:22 AM Reporting Lab: [place] [facility] [address] [facility] [address] Performing Lab: [place] [facility] [address] [facility] [address] CALCIUM 8.3 L 8.5-10.5 Dec 10, 2021 08:05 AM [place] [facility] ELECTROLYTES Sp ecimen Type: PLASMA Comment: [place] [id number] on Dec 10, 2021@08:31 Tests performed on [employer] (405) SN:[id number] Ordering Provid er: ISATU TODD Report Released Date/Time: Dec 10, 2021 07:22 AM Reporting Lab: [place] [facility] [address] [facility] [address] Performing Lab: [place] [facility] [address] [facility] [address] SODIUM 139 135-145 POTASSIUM 3.7 3.5-5.0 CHLORIDE 107 100-110 CARBON DIOXIDE 24 20-30 ANION GAP 8 4-16 Dec 10, 2021 08:05 [place] CREATININE WITH eGFR Specime n Type: PLASMA AM [facility] PANEL Comment: [place] [id number] on Dec 10, 2021@08:31 Tests performed on [employer] (405) SN:[id number] Ordering Provid er: ISATU TODD Report Released Date/Time: Dec 10, 2021 07:22 AM Reporting Lab: [place] [facility] [address] [facility] [address] Performing Lab: [place] [facility] [address] [facility] [address] CREATININE 0.78 0.5-1.5 eGFR(CKD-EPI 2020) >90.0 >60 Dec 10, 2021 08:05 AM [facility] CBC PROFILE Sp ecimen Type: BLOOD No comment enter ed. Ordering Provid er: ISATU TODD Report Released Date/Time: Dec 10, 2021 07:22 AM Reporting Lab: [place] OME[place] [facility] [address] [facility] [address] Performing Lab: [place] [facility] [address] [facility] [address] WBC 7.0 4.5-11.0 RBC 4.54 4.23-5.66 HGB [...] 0.00 0-0 Dec 09, 2021 06:46 AM [facility] MAGNESIUM Sp ecimen Type: PLASMA Comment: Tests performed on [employer] (403) SN:[id number] Ordering Provid er: ISATU TODD Report Released Date/Time: Dec 08, 2021 10:23 AM Reporting Lab: [facility] [address] [facility] [address] Performing Lab: [facility] [address] [facility] [address] MAGNESIUM 1.6 1.6-2.6 Dec 09, 2021 [facility] P4 GLU,BUN,CREAT,LYTES,CA Speci men Type: PLASMA 06:46 AM [facility] Comment: Tests performed on [employer] (405) SN:[id number] Ordering Provid er: ISATU TODD Report Released Date/Time: Dec 08, 2021 05:00 PM Reporting Lab: [facility] [address] [facility] [address] Performing Lab: [facility] [address] [facility] [address] UREA NITROGEN 6 L 7-25 SODIUM 134 [...] [facility] [address] [facility] [address] Performing Lab: [facility] [address] [facility] [address] WBC 7.1 4.5-11.0 RBC 4.40 4.23-5.66 HGB [...] 0.00 0-0 Dec 08, 2021 06:39 AM [place] [facility] MAGNESIUM Sp ecimen Type: PLASMA Comment: Testin g Performed on [employer] (405) SN:[id number] Ordering Provid er: ISATU TODD Report Released Date/Time: Dec 07, 2021 10:32 AM Reporting Lab: [facility] [address] [facility] [address] Performing Lab: [facility] [address] [facility] [address] MAGNESIUM 1.5 L 1.6-2.6 Dec 08, 2021 [place] [facility] T P4 GLU,BUN,CREAT,LYTES,CA Speci men Type: PLASMA 06:39 AM [facility] Comment: Testin g Performed on [employer] (405) SN:[id number] Ordering Provid er: ISATU TODD Report Released Date/Time: Dec 07, 2021 10:32 AM Reporting Lab: [place] T [facility] [address] [facility] [address] Performing Lab: [facility] [address] [facility] [address] UREA NITROGEN 6 L 7-25 SODIUM 136 135-145 POTASSIUM 3.3 L 3.5-5.0 CHLORIDE 104 100-110 CARBON DIOXIDE 22 20-30 ANION GAP 10 4-16 GLUCOSE 133 H 65-100 CREATININE 0.76 0.5-1.5 CALCIUM 8.4 L 8.5-10.5 eGFR(CKD-EPI 2020) >90.0 >60 Dec 08, 2021 06:39 AM [place] [facility] T [facility] CBC PROFILE Sp ecimen Type: BLOOD No comment enter ed. Ordering Provid er: ISATU TODD Report Released Date/Time: Dec 07, 2021 10:32 AM Reporting Lab: [facility] [address] [facility] [address] Performing Lab: [facility] [address] [facility] [address] WBC 8.4 4.5-11.0 RBC 4.75 4.23-5.66 HGB [...] ABSOLUTE NRBC 0.00 0-0 Dec 07, 2021 [facility] P4 GLU,BUN,CREAT,LYTES,CA Speci men Type: PLASMA 06:42 AM [facility] Comment: Tests performed on [employer] (405 SN:[id number] Ordering Provid er: PORFIRIO WALTERS Report Released Date/Time: Dec 06, 2021 06:57 PM Reporting Lab: [facility] [address] [facility] [address] Performing Lab: [facility] [address] [facility] [address] UREA NITROGEN 9 7-25 SODIUM 135 135-145 POTASSIUM 3.5 3.5-5.0 CHLORIDE 103 100-110 CARBON DIOXIDE 22 20-30 ANION GAP 10 4-16 GLUCOSE 92 65-100 CREATININE 0.73 0.5-1.5 CALCIUM 8.0 L 8.5-10.5 eGFR(CKD-EPI 2020) >90.0 >60 Dec 07, 2021 06:42 [place] LIVER PROFILE Specimen Typ e: PLASMA AM [facility] Comment: Tests performed on [employer] (405) SN:[id number] Ordering Provid er: PORFIRIO WALTERS Report Released Date/Time: Dec 06, 2021 06:57 PM Reporting Lab: [facility] [address] [facility] [address] Per[facility]: [facility] [address] [facility] [address] PROTEIN, TOTAL 5.7 L 6.0-8.5 ALBUMIN 2.4 L 3.2-5.0 BILIRUBIN, TOTAL 0.4 0.2-1.2 ALKALINE PHOSPHATASE 109 40-150 ALT(SGPT) 10 7-52 AST(SGOT) 15 5-34 FIB-4 SCORE 1.92 <2.67 Dec 07, 2021 06:[address] [facility] CBC PROFILE Specimen Type: BLOOD [facility] No comment enter ed. Ordering Provid er: PORFIRIO WALTERS Report Released Date/Time: Dec 06, 2021 06:57 PM Reporting Lab: [facility] [address] [facility] [address] Per[facility]: [facility] [address] [facility] [address] WBC 5.7 4.5-11.0 RBC 4.15 L 4.23-5.66 [...] [facility] %) AUTOMATED Comment: Tests performed on [employer] (405) SN:[id number] Ordering Provid er: SIATU TODD Report Released Date/Time: Dec 07, 2021 10:28 AM Reporting Lab: [place] [facility] [address] [facility] [address] Performing Lab: [place] [facility] [address] [facility] [address] RETICULOCYTES (%) AUTOMATED 1.23 0. 6-2.0 RETICULOCYTES (ABS) AUTOMATED 0.052 0.030-0.090 Dec 06, 2021 09:45 [place] MRSA SURVL NARES Specimen Ty pe: NARES PM [facility] DNA No comment enter ed. Ordering Provid er: ALVARO VARGHESE Report Released Date/Time: Dec 07, 2021 02:20 AM Reporting Lab: [place] [facility] [address] [facility] [address] Performing Lab: [place] [facility] [address] [facility] [address] MRSA SURVL NARES DNA NEGATIVE NEGATIVE Dec 06, 2021 06:00 [place] URINALYSIS W/REFLEX TO Speci men Type: URINE PM [facility] CULTURE No comment enter ed. Ordering Provid er: JELANI SÁNCHEZ Report Released Date/Time: Dec 06, 2021 11:57 AM Reporting Lab: [place] [facility] [address] [facility] [address] Performing Lab: [place] [facility] [address] [facility] [address] URINE COLOR Arlin YELLOW SPECIFIC GRAVITY 1.029 [...] 21, [place] Comment: https://www.cdc.gov/coronavirus/2019-ncov/cases-updates/variant- surveillance/variant-info.html The [employer] SARS CoV 2 [employer] Research Assay-GX is a next-generation sequencing (NGS) assa 2021 [facility] SEQUENCING y that determine s the complete genome sequence of the SARS-CoV-2 virus. The assay contains variant-tolerant primers to broaden and improve the coverage for variant detection and increase the sensitivity 12:00 [facility] PNL(WH) of the panel to enable detection from lower viral titer samples. The assay is run on the [employer] System Sequencer, which performs automated library preparation, sequencing, analysis, and reporting. PM The sequence an alysis includes determination of viral phylogenetic lineage by comparison to the reference strain Wuhan-Hu-1, GenBank: [id number]. Sequence determination may not be possible owing [...] Lab: [facility] [address] [facility] [address] Performing Lab: [facility] [address] [facility] [address] SARS-CoV-2 CLADE() 22C (OMICRON) SARS-CoV-2 LINEAGE() BA.2.12.1 Dec 06, 2021 12:00 [facility] AG SCREEN Specimen Type: NASAL CAVITY PM [facility] PANEL BINAX(405) Comment: Testi ng Performed By: Mike Briscoe Ordering Provid er: JELANI SÁNCHEZ Report Released Date/Time: Dec 08, 2021 08:23 AM Reporting Lab: [facility] [address] [facility] [address] Per[facility]: [facility] [address] [facility] [address] COVID-19 AG SCRN(wrj BINAX) POSITIVE HH NE G Dec 06, 2021 12:00 PM [facility] TROPONIN II Sp ecimen Type: PLASMA Comment: Tests performed on [employer] (405) SN:[id number] Ordering Provid er: JELANI SÁNCHEZ Report Released Date/Time: Dec 06, 2021 11:57 AM Reporting Lab: [facility] [address] [place] [facility] [place] [place] [address] Performing Lab: [facility] [address] [facility] [address] TROPONIN II 0.03 0.00-0.29 Dec 06, 2021 12:00 PM [facility] LIVER PROFILE Sp ecimen Type: PLASMA Comment: Testin g Performed on [employer] (405) SN:[id number] Ordering Provid er: JELANI SÁNCHEZ Report Released Date/Time: Dec 06, 2021 11:57 AM Reporting Lab: [facility] [address] [facility] [address] Performing Lab: [facility] [address] [facility] [address] PROTEIN, TOTAL 6.6 6.0-8.5 ALBUMIN 2.8 L 3.2-5.0 BILIRUBIN, TOTAL 0.6 0.2-1.2 ALKALINE PHOSPHATASE 134 40-150 ALT(SGPT) 13 7-52 AST(SGOT) 18 5-34 FIB-4 SCORE 1.94 <2.67 Dec 06, 2021 [place] P4 GLU,BUN,CREAT,LYTES,CA Speci men Type: PLASMA 12:00 PM [facility] Comment: Testin g Performed on [employer] Person (405) SN:[id number] Ordering Provid er: JELANI SÁNCHEZ Report Released Date/Time: Dec 06, 2021 11:57 AM Reporting Lab: [place] [facility] [address] [facility] [address] Performing Lab: [place] [facility] [address] [facility] [address] UREA NITROGEN 13 7-25 SODIUM 138 135-145 POTASSIUM 3.8 3.5-5.0 CHLORIDE 103 100-110 CARBON DIOXIDE 23 20-30 ANION GAP 12 4-16 GLUCOSE 105 H 65-100 CREATININE 0.90 0.5-1.5 CALCIUM 8.7 8.5-10.5 eGFR(CKD-EPI 2020) >90.0 >60 Dec 06, 2021 12:00 PM [facility] BNP(P) Sp ecimen Type: PLASMA Comment: Tests performed on [employer] (405) [id number] Ordering Provid er: JELANI SÁNCHEZ Report Released Date/Time: Dec 06, 2021 11:57 AM Reporting Lab: [facility] [address] [facility] [address] Performing Lab: [facility] [address] [facility] [address] BNP(P) 224.8 H 10-100 Dec 06, 2021 [facility] [place] COVID-19+FLU/RSV DIAGNOSTIC Spe cimen Type: NASOPHARYNX 12:00 PM [facility] PANEL(405) Comment: Tests performed on [employer]el[employer] (405) Critical results called to and read back by: ALESHIA WILKINSON RN 12/06/21 @ 1312 Ordering Provid er: JELANI SÁNCHEZ Report Released Date/Time: Dec 06, 2021 11:57 AM Reporting Lab: [facility] [address] [facility] [address] Performing Lab: [place] [facility] [address] [facility] [address] FLU A(PCR) NEGATIVE NEGATIVE FLU B(PCR) NEGATIVE NEGATIVE RSV(PCR) NEGATIVE NEGATIVE COVID-19(BFU-ric-SCNHHROQM) DETECTED HH NO T DETECTED Dec 06, 2021 12:[facility] ecimen Type: BLOOD No comment enter ed. Ordering Provid er: JELANI SÁNCHEZ Report Released Date/Time: Dec 06, 2021 11:57 AM Reporting Lab: [facility] [address] [facility] [address] Performing Lab: [facility] [address] [facility] [address] WBC 7.2 4.5-11.0 RBC 4.86 4.23-5.66 HGB [...] 2021 07:43 /min mm[Hg] RIVER PM T [facility] Dec 12, 0 WHITE 2021 07:37 RIVER PM [place] [facility] Dec 12, 0 WHITE 2021 02:17 RIVER PM T [facility] Dec 12, 98 F 82 127/76 18 /min 97 % WHITE 2021 02:01 /min mm[Hg] RIVER PM T [facility] Dec 12, 0 2021 10:59 RIVER AM [facility] Social History: Smoking Status (Most current) [...] place. Date/Time Smoking Status/Tobacco Use Comment [facility] Apr 01, 2020 01:16 PM QUIT TOBACCO USE 1-7 YEARS AGO [facility] Mar 24, 2020 03:00 PM QUIT [facility]BACCO USE 1[facility] Feb 21, 2019 04:11 PM QUIT TOBACCO USE 1-7 YEARS AGO [facility] Feb 20, 2019 03:38 PM QUIT TOBACCO USE 1-7 YEARS AGO [facility] Feb 03, 2019 09:50 AM QUIT TOBACCO USE 1-7 YEARS AGO [facility] May 25, 2016 11:53 PM [facility] May 23, 2016 06:57 PM QUIT TOBACCO [...] TOBACCO USE IN PAST YEAR [facility] May 01, 2016 11:19 AM QUIT TOBACCO USE IN PAST YEAR [facility] Mar 16, 2016 12:50 PM V1-PT DECLINES REF TO TOBACCO [facility] CESS PRGM Mar 16, 2016 12:50 PM V1-PT THINKING ABOUT QUIT [facility] TOBACCO USE Aug 12, 2015 08:48 AM CURRENT SMOKER [facility] Radiology Reports: +/- 30 days of [...] W/WO CONTRAST: MARYELLEN LONG LUCAS LARES N [id number] -1950 [facility] Exm Date: DEC 13, 2021@12:57 Req Phys: ISATU TODD Loc: OP Unknown/0 12-15-2021@13:20 Img Loc: MRI IMAGING (OOS) Service: ZZGENERAL MEDICINE (Case [id number] COMPLETE) MRI ABDOMEN W/WO CONTRAST (M RI Detailed) CPT:83171 Reason for Study: further characterization of a [...] new lyphadenopathy REQUESTING MD: Isatu Todd PAGER: [phone] PHONE: [phone] Weight: 232.2 lb [105.32 kg] (12/12/2021 05:00) [...] will need to arrange for a tow driver to take him/her home after the [...] 2021 Date Verified: DEC 15, 2021 Contract Programmer E-Sig:/ES/MARYELLEN LONG Report: MRI ABDOMEN W/WO [...] Primary Interpreting Staff: MARYELLEN LONG Staff (Contract Programmer) / Dec 10, 2021 09:[address] ABDOMEN & PELVIS: [facility]IDE [facility] EBN[facility] MEEKLAS N [id number] -1950 SERVICE [facility] Ex Date: DEC 10, 2021@09:30 Req Phys: ISATU TODD Loc: 1S MED/12-10@10:57 Img Loc: CT SCAN (OOS) Service: [facility] MEDICINE (Case [id number] COMPLETE) CT ABD & PELVIS WITHOUT CONT RAST (CT Detailed) CPT:04870 Reason for Study: 71 yo male with [...] INDEX - NO HEIGHTS FOUND Pager number: [phone] STAT orders MUST be call ed to RADIOLOGY [phone] to speak to the appropriate wireless technician. Report Status: Verified Date Reported: DEC 10, 2021 Date Verified: DEC 10, 2021 Contract Programmer E-Sig: Report: EXAM: CT abdomen and [...] ph nodes. READING PHYSICIAN: Ramone Munoz D.O. [phone] 12/10/2021 10:55 EDT [facility] National Teleradiology Program [phone] (For Medical Practitioner Use Only ) [address] [facility], [facility] [address], [address] [place] [address] Attention Patients / Veterans: If you have ques tions or concerns about these test results, please contact your o rdering provider or primary care team. Primary Diagnostic Code: SIGNIFICANT ABNORMALIT Y, ATTN NEEDED Primary Interpreting Staff: RADIOLOGY,OUTSIDE SERVICE, Staff Physician / Dec 09, 2021 07:34 AM BASW (MODIFIED): JESSIE CHENEY ATRA ER JCLUCAS LARES N [id number] -1950 [facility] Exm Date: DEC 09, 2021@07:34 Req Phys: PEYTONISATU Manjarrez Loc: 1S MED/12-09@11:26 Img Loc: XRAY (OOS) Service: [facility] MEDICINE (Case [id number] COMPLETE) BASW (MODIFIED) (RAD Detaile d) CPT:14604 Contrast Media : Barium Reason for Study: dysphagia ?esophageal spasm Clinical History: Report Status: Verified Date Reported: DEC 09, 2021 Date Verified: DEC 09, 2021 Contract Programmer E-Sig:/ES/JESSIE CHENEY Report: BASW (MODIFIED) , [...] Primary Interpreting Staff: JESSIE CHENEY, RADIOLOGIST (Contract Programmer) /TLC Dec 06, 2021 12:[address] CHEST (INCLUDES ADRENALS): JESSIE CHENEY LUCAS LARES N [id number] -1950 [facility] Exm Date: DEC 06, 2021@12:59 Req Phys: JELANI SÁNCHEZ Pat Loc: [facility] ED DAYS M 1RD (Req'g Loc) Img Loc: CT SCAN (OOS) Service: Unknown (Case [id number] COMPLETE) CT THORAX W/O CONT (CT Detai led) CPT:31429 Reason for Study: Opacification right chest Clinical History: No contrast allergy BUN: 13 (12/06/21 12:00) CREATI: 0.90 (12/06/21 12:00) eGFR 05/16/21 09:43 52 L Weight: 232.6 lb [105.51 kg] (12/06/2021 11:40) BODY MASS INDEX - NO HEIGHTS FOUND Pager number: [phone] STAT orders MUST be called t o RADIOLOGY [phone] to speak to the appropriate wireless technician. Indications - Other: Opacification right chest, covid positive, lung cancer histo Report Status: Verified Date Reported: DEC 06, 2021 Date Verified: DEC 06, 2021 Contract Programmer E-Sig:/ES/JESSIE CHENEY Report: CT THORAX W/O [...] Primary Interpreting Staff: JESSIE CHENEY, RADIOLOGIST (Contract Programmer) Primary Interpreting Resident: PRINCE CHAMPION, Resident /BR Dec 06, 2021 11:58 AM CHEST SINGLE VIEW: JESSIE CHENEY DOUGLAS N [id number] -1950 M [facility] Exm Date: DEC 06, 2021@11:58 Req Phys: GONZALO,JELANI Link Pat Loc: [facility] ED DAYS M 1RD (Req'g Loc) Img Loc: XRAY (OOS) Service: Unknown (Case [id number] COMPLETE) CHEST SINGLE VIEW (RAD Detai led) CPT:70130 Proc Modifiers : PORTABLE EXAM Reason for Study: SOB, home covid test positive Clinical History: Report Status: Verified Date Reported: DEC 06, 2021 Date Verified: DEC 06, 2021 Contract Programmer E-Sig:/ES/JESSIE CHENEY Report: Exam type: Chest [...] Primary Interpreting Staff: JESSIE CHENEY, RADIOLOGIST (Contract Programmer) /TLC Pathology Reports: +/- 30 days of [...] [facility] [CLIA# [id number]] [address] [place] [address] - - - - - - [...] automatically d ocumented from SURGERY package case #[id number] Field (#32) PRINCIPAL PRE-OP DIAGNOSIS, (#.72) OTHER [...] automatically d ocumented from SURGERY package case #[id number] Field (#34) PRINCIPAL POST-OP DIAG, (#.74) OTHER [...] Label: Lucas Meek Paperwork: Lucas Meek Cassette: [id number];..;KALYANI;.;405;[id number] Specimen is labeled: ES bx Received in formalin are several pieces of pale boyd and brown tissue, 1.2 x 0.7 cm in aggregate. Submitted entirely in 1 cassette [id number];..;KALYANI;.;405;[id number] SAW 12/15/2021 Microscopic exam: *+* MODIFIED REPORT *+* (Last modified: JAN 03, 2022@09:30:20 typed by NIURKA WADDELL) DIAGNOSIS: A. 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 Kendell long. TIARA Coombs was notified on 12/21/21. Modified on 01/03/22 to include report from [facility] stating that tumor is NEGATIVE for her2/ matheus amplification. The attending pathologist who signature mansoor ears on this report has reviewed all diagnostic slides and has edited t he gross and/or microscopic portion of this report in rendering the final pathologic diagnosis. [address] [address] CPT: 59600 /emely/ NIURKA Yeung MD Signed Jan 03, 2022@10:28 Performing Laboratory: Surgical Pathology Report Performed By: [facility] [CLIA# [id number]] [address] [place] [address] $FTR - - - - - [...] - - LUCAS MEEK STANDARD FORM 515 ID:[id number] SEX:M :1950 AGE: 71 LOC: SDM END PCP: Isatu Todd /emely/ NIURKA MILLER Staff Signed: 01/03/2022 10:28 Dec 21, 2021 11:46 AM LR SURGICAL PATHOLOGY REPORT: STEFANY MILLER [facility] LOCAL TITLE: LR SURGICAL PATHOLOGY REPORT [facility] STANDARD TITLE: PATHOLOGY REPORT DATE OF NOTE: DEC 21, 2021@11:46:59 ENTRY DATE: DEC 21, 2021@11:46:59 AUTHOR: NIURKA MILLER EXP COSIGNER: URGENCY: STATUS: COMPLETED $APHDR Reporting Lab: [facility] [CLIA# [id number]] [address] [place] [address] - - - - - - [...] automatically d ocumented from SURGERY package case #[id number] Field (#32) PRINCIPAL PRE-OP DIAGNOSIS, (#.72) OTHER [...] automatically d ocumented from SURGERY package case #[id number] Field (#34) PRINCIPAL POST-OP DIAG, (#.74) OTHER [...] Label: Lucas Meek Paperwork: Lucas Meek Cassette: [id number];..;KALYANI;.;405;[id number] Specimen is labeled: ES bx Received in formalin are several pieces of pale boyd and brown tissue, 1.2 x 0.7 cm in aggregate. Submitted entirely in 1 cassette [id number];..;KALYANI;.;405;[id number] SAW 12/15/2021 Microscopic exam: DIAGNOSIS: A. 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 Kendell long. TIARA Coombs was notified on 12/21/21. The attending pathologist who signature mansoor ears on this report has reviewed all diagnostic slides and has edited t he gross and/or microscopic portion of this report in rendering the final pathologic diagnosis. [address] [address] CPT: 94962 /emely/ NIURKA Yeung MD Signed Dec 21, 2021@11:46 Performing Laboratory: Surgical Pathology Report Performed By: [facility] [CLIA# [id number]] [address] [place] [address] $FTR - - - - - [...] - - LUCAS MEEK STANDARD FORM 515 ID:[id number] SEX:M :1950 AGE: 71 LOC: SDM END PCP: Isatu Todd /charmaine Yeung MD Signed: 12/21/2021 11:46 Dec 06, 2021 03:30 PM LR MICROBIOLOGY REPORT: [facility] Reporting Lab: [facility] [CLIA# [id number]] [address] [place] [address] Accession [UID]: [id number] [[id number]] Receiv ed: Dec 06, 2021@16:14 Collection sample: BLOOD CUL T BOTTLE(NIRMAL/AERO)Collection date: Dec 06, 2021 15:30 Site/Specimen: BLOOD Provider: JELANI SÁNCHEZ Comment on specimen: LAC Test(s) ordered: BLOOD CULTURE ANAEROBI C....... completed: Dec 12, 2021 06:18 * BACTERIOLOGY FINAL REPORT => Dec 12, 2021 06:1 8 TECH CODE: [id number] Bacteriology Remark(s): NO GROWTH IN 5 DAYS =--=--=--=--=--=--=--=--=--=--=--=--=--= --=--=--=--=--=--=--=--=--=--=--=--=-- Performing Laboratory: Bacteriology Report Performed By: [facility] [CLIA# [id number]] [address] [place] [address] Dec 06, 2021 03:30 PM LR MICROBIOLOGY REPORT: [facility] Reporting Lab: [facility] [CLIA# [id number]] [address] [place] [address] Accession [UID]: [id number] [[id number]] Receiv ed: Dec 06, 2021@16:14 Collection sample: BLOOD CUL T BOTTLE(NIRMAL/AERO)Collection date: Dec 06, 2021 15:30 Site/Specimen: BLOOD Provider: JELANI SÁNCHEZ Comment on specimen: LAC Test(s) ordered: BLOOD CULTURE AEROBIC. ........ completed: Dec 12, 2021 06:17 * BACTERIOLOGY FINAL REPORT => Dec 12, 2021 06:1 7 TECH CODE: [id number] Bacteriology Remark(s): NO GROWTH IN 5 DAYS =--=--=--=--=--=--=--=--=--=--=--=--=--= --=--=--=--=--=--=--=--=--=--=--=--=-- Performing Laboratory: Bacteriology Report Performed By: [facility] [CLIA# [id number]] [address] [place] [address]
--- OUTSIDE RECORDS SUMMARY | 2022-01-19 09:19 | XMS_ITS ---
DAILY HOSPITALIZATION DATA [facility] Encounter Summary Created on:December 12, 2021 Patient:LUCAS MEEK Sex:Male :1950 Author Organization [facility] Address [address] [place] [id number] Support Name Relationship Address Phone YUSRA MEEK Unavailable [address] [place] [address] YUSRA MEEK Unavailable [address] [place] [address] CLAY MOSLEY Unavailable Unavailable SJ SANTACRUZ Unavailable [...] MEDICARE MEDICARE PART Jun 18, PART A [id number] DO KALYANI PATIENT (WNR) (M) A 2016 13A 1 [place] MEDICARE MEDICARE PART Jun 18, PART B [id number] DO KALYANI PATIENT (WNR) (M) B 2016 13A 1 [place] MEDICARE MEDICARE PART Jun 18, PART A [id number] KALYANIDO PATIENT (WNR) (M) A 2017 VH81 2 [place] MEDICARE MEDICARE PART Jun 18, PART B [id number] DO KALYANI PATIENT (WNR) (M) B 2017 VH81 2 [place] UNITED MEDICARE MCR(Jun 18 [id number] Luz MEEK PATIENT HEALTHCARE ADVANTAGE NR) 2021 37 0 [facility] (WNR) Selected Encounter This section includes the information on record at [place] for the Encounter. Date/Time Encounter Type Encounter Description Reason Provider Source Dec 12, 2021 02:14 Inpatient Visit DAILY HOSPITALIZATION DATA AM [facility] Encounter Template Text not used [...] 2022 10:00 AM AMBULATORY - SURGERY [place] [facility] Mar 21, 2022 10:30 AM [...] The data comes from all [place] [facility] [place]. Test Date/Time Test Type Test Details Facility Name October 31, 2021 07:37 AM Consult Order COMMUNITY CARE-EGD [facility] Cons Senior Partner's Choice November 15, 2021 10:37 AM Consult Order [facility] CARE-PODIATRY Cons Senior Partner's Choice Dec 06, 2021 12:52 PM Pharmacy [...] [place] OUTPATIENT Cons [facility] Senior Partner's Choice Jan 15, 2022 10:08 PM Consult Order [facility] CARE-PALLIATIVE CARE Cons Senior Partner's Choice Lab Results: +/- 30 days of [...] Range Comment Dec 15, 2021 06:43 AM [facility] CBC PROFILE Sp ecimen Type: BLOOD No comment enter ed. Ordering Provid er: ISATU TODD Report Released Date/Time: Dec 10, 2021 07:22 AM Reporting Lab: [facility] [address] [address] Performing Lab: [facility] [address] [address] WBC 5.7 4.5-11.0 RBC 4.22 L 4.23-5.66 [...] ABSOLUTE NRBC 0.00 0-0 Dec 15, 2021 [facility] P4 GLU,BUN,CREAT,LYTES,CA Speci men Type: PLASMA 06:43 AM [facility] Comment: Tests performed on Pham [employer] Motor Vehicles (405) SN:[id number] Ordering Provid er: ISATU TODD Report Released Date/Time: Dec 11, 2021 07:42 AM Reporting Lab: [facility] [address] [address] Performing Lab: [facility] [address] [address] UREA NITROGEN 9 7-25 SODIUM 137 135-145 POTASSIUM 3.8 3.5-5.0 CHLORIDE 105 100-110 CARBON DIOXIDE 26 20-30 ANION GAP 6 4-16 GLUCOSE 102 H 65-100 CREATININE 0.64 0.5-1.5 CALCIUM 8.1 L 8.5-10.5 eGFR(CKD-EPI 2020) >90.0 >60 Dec 14, 2021 [facility] CYTOGENETIC Specimen Type: ESOPHAGUS 02:59 PM [facility] FISH([facility]) Comment: ~For T est: CYTOGENETIC FISH([facility]) ~FISH HER 2 NUE, FFPE See full report in GigaPan Image display viewer/tab#LAB-Reference Ordering Provid er: NIURKA MILLER Report Released Date/Time: Dec 21, 2021 12:11 PM Reporting Lab: [facility] [address] [address] Performing Lab: [facility] CYTOGENETIC FISH([facility]) comment Dec 14, 2021 [place] P4 GLU,BUN,CREAT,LYTES,CA Speci men Type: PLASMA 06:27 AM [facility] Comment: Tests performed on Pham [employer] Vehicles (405) SN:[id number] Ordering Provid er: ISATU TODD Report Released Date/Time: Dec 11, 2021 07:42 AM Reporting Lab: [facility] [address] [address] Performing Lab: [facility] [address] [facility] [address] UREA NITROGEN 10 7-25 SODIUM 137 135-145 [...] Lab: [facility] [address] [address] Performing Lab: [facility] [address] [address] WBC 6.0 4.5-11.0 RBC 4.29 4.23-5.66 HGB [...] 0.00 0-0 Dec 13, 2021 [facility] P4 GLU,BUN,CREAT,LYTES,CA Speci men Type: PLASMA 06:34 AM [facility] Comment: Tests performed on Neocis (405) SN:[id number] Ordering Provid er: ISATU TODD Report Released Date/Time: Dec 11, 2021 07:42 AM Reporting Lab: [facility] [address] [address] Performing [facility]: [facility] [address] [address] UREA NITROGEN 12 7-25 SODIUM 136 135-145 [...] Lab: [facility] [address] [address] Performing Lab: [facility] [address] [address] WBC 5.6 4.5-11.0 RBC 4.28 4.23-5.66 HGB [...] [facility] Comment: Tests performed on Neocis (405) SN:[id number] Ordering Provid er: ISATU TODD Report Released Date/Time: Dec 11, 2021 07:42 AM Reporting Lab: [facility] [address] [address] Performing Lab: [facility] [address] [address] UREA NITROGEN 11 7-25 SODIUM 139 135-145 [...] AM Reporting Lab: [facility] [address] [address] Per[facility]: [facility] [address] [address] WBC 5.5 4.5-11.0 RBC 4.37 4.23-5.66 HGB [...] 0.00 0-0 Dec 12, 2021 06:00 AM [email or web address] [facility] MAGNESIUM Sp ecimen Type: PLASMA Comment: Testin g Performed on Neocis (405) SN:[id number] Ordering Provid er: ISATU TODD Report Released Date/Time: Dec 12, 2021 08:24 AM Reporting Lab: [place] GuzzMobileT [facility] [address] [address] Performing Lab: fromAtoB [place] GuzzMobileT [facility] Management[facility] [address] [address] MAGNESIUM 1.8 1.6-2.6 Dec 12, 2021 06:00 AM zweitgeistT [facility] ([facility] Management[facility] PHOSPHORUS Sp ecimen Type: PLASMA Comment: Testin g Performed on Neocis (405) SN:[id number] Ordering Provid er: ISATU TODD Report Released Date/Time: Dec 12, 2021 08:24 AM Reporting Lab: IN[place] GuzzMobileT [facility] [address] [address] Performing Lab: [place] GuzzMobileT [facility] [address] [address] PHOSPHORUS 3.1 2.5-5.0 Dec 11, 2021 06:15 AM fromAtoB [place] GuzzMobileT [facility] ([facility] Management[facility] ELECTROLYTES Sp ecimen Type: PLASMA Comment: Tests performed on Neocis (405) SN:[id number] Ordering Provid er: ISATU TODD Report Released Date/Time: Dec 10, 2021 07:22 AM Reporting Lab: [place] GuzzMobileT [facility] [address] [address] Performing Lab: [place] GuzzMobileT [facility] [address] [address] SODIUM 137 135-145 POTASSIUM 4.3 3.5-5.0 CHLORIDE 108 100-110 CARBON DIOXIDE 20 20-30 ANION GAP 9 4-16 Dec 11, 2021 06:15 AM [place] BollingoBlogT [facility] CBC PROFILE Sp ecimen Type: BLOOD Comment: Result s checked Ordering Provid er: ISATU TODD Report Released Date/Time: Dec 10, 2021 07:22 AM Reporting Lab: [place] OMEGAT [facility] [address] [address] Performing Lab: [place] OMEGAT [facility] [address] [address] WBC 5.8 4.5-11.0 RBC 4.37 4.23-5.66 HGB [...] ecimen Type: PLASMA Comment: Tests performed on Neocis (518) SN:[id number] Results checked Ordering Provid er: ISATU TODD Report Released Date/Time: Dec 11, 2021 07:44 AM Reporting Lab: [facility] DUFF[place] [facility] [address] [address] Performing Lab: INGRAM OMEGAT NMMROC [address] [address] PHOSPHORUS 3.0 2.5-5.0 Dec 10, 2021 08:05 AM [place] [facility] PHOSPHORUS Sp ecimen Type: PLASMA Comment: [place] [id number] on Dec 10, 2021@08:31 Tests performed on Neocis (405) SN:[id number] Ordering Provid er: ISATU TODD Report Released Date/Time: Dec 10, 2021 07:22 AM Reporting Lab: [place] [facility] [address] [place] [facility] [place] [address] Performing Lab: [place] [facility] [address] [place] [facility] [place] [address] PHOSPHORUS 1.8 L 2.5-5.0 Dec 10, 2021 08:05 AM [place] [facility] MAGNESIUM Sp ecimen Type: PLASMA Comment: [place] [id number] on Dec 10, 2021@08:31 Tests performed on Neocis (405) SN:[id number] Ordering Provid er: ISATU TODD Report Released Date/Time: Dec 10, 2021 07:22 AM Reporting Lab: [place] [facility] [address] [place] [facility] [place] [address] Performing Lab: [place] [facility] [address] [place] [facility] [place] [address] MAGNESIUM 1.7 1.6-2.6 Dec 10, 2021 08:05 AM [place] UREA NITROGEN Specimen Type: PLASMA [facility] Comment: [place] [id number] on Dec 10, 2021@08:31 Tests performed on Neocis (405) SN:[id number] Ordering Provid er: ISATU TODD Report Released Date/Time: Dec 10, 2021 07:22 AM Reporting Lab: [place] [facility] [address] [place] [facility] [place] [address] Performing Lab: [place] [facility] [address] [place] [facility] [place] [address] UREA NITROGEN 8 7-25 Dec 10, 2021 08:05 AM [place] [facility] CALCIUM Sp ecimen Type: PLASMA Comment: [place] [id number] on Dec 10, 2021@08:31 Tests performed on Neocis (405) SN:[id number] Ordering Provid er: ISATU TODD Report Released Date/Time: Dec 10, 2021 07:22 AM Reporting Lab: [place] [facility] [address] [address] Performing Lab: [place] [facility] [address] [address] CALCIUM 8.3 L 8.5-10.5 Dec 10, 2021 08:05 [place] CREATININE WITH eGFR Specime n Type: PLASMA AM [facility] PANEL Comment: [place] [id number] on Dec 10, 2021@08:31 Tests performed on Pham AltraVax (405) SN:[id number] Ordering Provid er: ISATU TODD Report Released Date/Time: Dec 10, 2021 07:22 AM Reporting Lab: [place] [facility] [address] [address] Performing Lab: [place] [facility] [address] [address] CREATININE 0.78 0.5-1.5 eGFR(CKD-EPI 2020) >90.0 >60 Dec 10, 2021 08:05 AM [place] [facility] GLUCOSE Sp ecimen Type: PLASMA Comment: [place] [id number] on Dec 10, 2021@08:31 Tests performed on Pham AltraVax (405) SN:[id number] Ordering Provid er: ISATU TODD Report Released Date/Time: Dec 10, 2021 07:22 AM Reporting Lab: [place] [facility] [address] [facility] [address] Performing Lab: [place] [facility] [address] [address] GLUCOSE 144 H 65-100 Dec 10, 2021 08:05 AM [place] [facility] ELECTROLYTES Sp ecimen Type: PLASMA Comment: [place] [id number] on Dec 10, 2021@08:31 Tests performed on Pham AltraVax (405) SN:[id number] Ordering Provid er: ISATU TODD Report Released Date/Time: Dec 10, 2021 07:22 AM Reporting Lab: [place] [facility] [address] [facility] [address] Performing Lab: [place] [facility] [address] [address] SODIUM 139 135-145 POTASSIUM 3.7 3.5-5.0 CHLORIDE 107 100-110 CARBON DIOXIDE 24 20-30 ANION GAP 8 4-16 Dec 10, 2021 08:05 AM [facility] CBC PROFILE Sp ecimen Type: BLOOD No comment enter ed. Ordering Provid er: ISATU TODD Report Released Date/Time: Dec 10, 2021 07:22 AM Reporting Lab: [place] OMEGAT [facility] [address] [address] Performing Lab: [place] OMEGAT [facility] [address] [address] WBC 7.0 4.5-11.0 RBC 4.54 4.23-5.66 HGB [...] ecimen Type: PLASMA Comment: Tests performed on Neocis (018) SN:[id number] Ordering Provid er: ISATU TODD Report Released Date/Time: Dec 08, 2021 10:23 AM Reporting Lab: [facility] [address] [address] Performing Lab: [facility] [address] [address] MAGNESIUM 1.6 1.6-2.6 Dec 09, 2021 [facility] P4 GLU,BUN,CREAT,LYTES,CA Speci men Type: PLASMA 06:46 AM [facility] Comment: Tests performed on Neocis (405) SN:[id number] Ordering Provid er: ISATU TODD Report Released Date/Time: Dec 08, 2021 05:00 PM Reporting Lab: [facility] [address] [address] Performing Lab: [facility] [address] [address] UREA NITROGEN 6 L 7-25 SODIUM 134 [...] Lab: [facility] [address] [address] Performing Lab: [facility] [address] [address] WBC 7.1 4.5-11.0 RBC 4.40 4.23-5.66 HGB [...] 0.00 0-0 Dec 08, 2021 06:39 AM [place] [employer] T [facility] MAGNESIUM Sp ecimen Type: PLASMA Comment: Testin g Performed on Neocis (405) SN:[id number] Ordering Provid er: ISATU TODD Report Released Date/Time: Dec 07, 2021 10:32 AM Reporting Lab: [facility] [address] [address] Performing Lab: [facility] [address] [address] MAGNESIUM 1.5 L 1.6-2.6 Dec 08, 2021 [place] [employer] T P4 GLU,BUN,CREAT,LYTES,CA Speci men Type: PLASMA 06:39 AM [facility] Comment: Testin g Performed on Neocis (405) SN:[id number] Ordering Provid er: ISATU TODD Report Released Date/Time: Dec 07, 2021 10:32 AM Reporting Lab: [place] T [facility] [address] [address] Performing Lab: [facility] [address] [address] UREA NITROGEN 6 L 7-25 SODIUM 136 135-145 POTASSIUM 3.3 L 3.5-5.0 CHLORIDE 104 100-110 CARBON DIOXIDE 22 20-30 ANION GAP 10 4-16 GLUCOSE 133 H 65-100 CREATININE 0.76 0.5-1.5 CALCIUM 8.4 L 8.5-10.5 eGFR(CKD-EPI 2020) >90.0 >60 Dec 08, 2021 06:39 AM [place] [employer] T [facility] CBC PROFILE Sp ecimen Type: BLOOD No comment enter ed. Ordering Provid er: ISATU TODD Report Released Date/Time: Dec 07, 2021 10:32 AM Reporting Lab: [facility] [address] [address] Performing Lab: [facility] [address] WBC 8.4 [...] [facility] Comment: Tests performed on Neocis (405 SN:[id number] Ordering Provid er: PORFIRIO WALTERS Report Released Date/Time: Dec 06, 2021 06:57 PM Reporting Lab: [facility] [address] [address] Performing Lab: [facility] [address] [address] PROTEIN, TOTAL 5.7 L 6.0-8.5 ALBUMIN 2.4 L 3.2-5.0 BILIRUBIN, TOTAL 0.4 0.2-1.2 ALKALINE PHOSPHATASE 109 40-150 ALT(SGPT) 10 7-52 AST(SGOT) 15 5-34 FIB-4 SCORE 1.92 <2.67 Dec 07, 2021 [facility] P4 GLU,BUN,CREAT,LYTES,CA Speci men Type: PLASMA 06:42 AM [facility] Comment: Tests performed on Neocis (405) SN:[id number] Ordering Provid er: PORFIRIO WALTERS Report Released Date/Time: Dec 06, 2021 06:57 PM Reporting Lab: [place] [facility] [address] [facility] [address] Performing Lab: [place] [facility] [address] [facility] [address] UREA NITROGEN 9 7-25 SODIUM 135 135-145 POTASSIUM 3.5 3.5-5.0 CHLORIDE 103 100-110 CARBON DIOXIDE 22 20-30 ANION GAP 10 4-16 GLUCOSE 92 65-100 CREATININE 0.73 0.5-1.5 CALCIUM 8.0 L 8.5-10.5 eGFR(CKD-EPI 2020) >90.0 >60 Dec 07, 2021 06:42 AM [place] CBC PROFILE Specimen Type: BLOOD [facility] No comment enter ed. Ordering Provid er: PORFIRIO WALTERS Report Released Date/Time: Dec 06, 2021 06:57 PM Reporting Lab: [place] [facility] [address] [facility] [address] Performing Lab: [facility] [address] [address] WBC 5.7 4.5-11.0 RBC 4.15 L 4.23-5.66 [...] [facility]AM[facility] %) AUTOMATED Comment: Tests performed on Neocis (405) SN:[id number] Ordering Provid er: ISATU TODD Report Released Date/Time: Dec 07, 2021 10:28 AM Reporting Lab: [place] [facility] [address] [facility] [address] Performing Lab: [place] [facility] [address] [address] RETICULOCYTES (%) AUTOMATED 1.23 0. 6-2.0 RETICULOCYTES (ABS) AUTOMATED 0.052 0.030-0.090 Dec 06, 2021 09:45 [place] MRSA SURVL NARES Specimen Ty pe: NARES PM [facility] DNA No comment enter ed. Ordering Provid er: ALVARO VARGHESE Report Released Date/Time: Dec 07, 2021 02:20 AM Reporting Lab: [place] [facility] [address] [facility] [address] Performing Lab: [place] [facility] [address] [address] MRSA SURVL NARES DNA NEGATIVE NEGATIVE Dec 06, 2021 06:00 [place] URINALYSIS W/REFLEX TO Speci men Type: URINE PM [facility] CULTURE No comment enter ed. Ordering Provid er: JELANI SÁNCHEZ Report Released Date/Time: Dec 06, 2021 11:57 AM Reporting Lab: [place] [facility] [address] [address] Performing Lab: [place] [facility] [address] [address] URINE COLOR Arlin YELLOW SPECIFIC GRAVITY 1.029 [...] 21, [place]IANT Comment: https://www.cdc.gov/coronavirus/2019-ncov/cases-updates/variant- surveillance/variant-info.html The [employer] SARS CoV 2 Replise Research Assay-GX is a next-generation sequencing (NGS) assa 2021 [facility] SEQUENCING y that determine s the complete genome sequence of the SARS-CoV-2 virus. The assay contains variant-tolerant primers to broaden and improve the coverage for variant detection and increase the sensitivity 12:00 [facility] PNL(WH) of the panel to enable detection from lower viral titer samples. The assay is run on the [employer] Sequencer, which performs automated library preparation, sequencing, analysis, and reporting. PM The sequence an alysis includes determination of viral phylogenetic lineage by comparison to the reference strain Wuhan-Hu-1, GenBank: [id number]. Sequence determination may not be possible owing [...] [facility] [address] [address] Performing Lab: [facility] [address] [facility] [address] SARS-CoV-2 CLADE() 22C (OMICRON) SARS-CoV-2 LINEAGE() BA.2.12.1 Dec 06, 2021 12:00 [facility] COVID-19 AG SCREEN Specimen Type: NASAL CAVITY PM [facility] PANEL BINAX(405) Comment: Testi ng Performed By: Mike Briscoe Ordering Provid er: JELANI SÁNCHEZ Report Released Date/Time: Dec 08, 2021 08:23 AM Reporting Lab: [facility] [address] [facility] [address] Performing Lab: [facility] [address] [address] COVID-19 AG SCRN(wrj BINAX) POSITIVE HH NE G Dec 06, 2021 12:00 PM [facility] LIVER PROFILE Sp ecimen Type: PLASMA Comment: Testin g Performed on Pham [employer] Vehicles (405) SN:[id number] Ordering Provid er: JELANI SÁNCHEZ Report Released Date/Time: Dec 06, 2021 11:57 AM Reporting Lab: [facility] [address] [facility] [address] Performing Lab: [facility] [address] [facility] [address] PROTEIN, TOTAL 6.6 6.0-8.5 ALBUMIN 2.8 L 3.2-5.0 BILIRUBIN, TOTAL 0.6 0.2-1.2 ALKALINE PHOSPHATASE 134 40-150 ALT(SGPT) 13 7-52 AST(SGOT) 18 5-34 FIB-4 SCORE 1.94 <2.67 Dec 06, 2021 [facility] P4 GLU,BUN,CREAT,LYTES,CA Speci men Type: PLASMA 12:00 PM [facility] Comment: Testin g Performed on Pham [employer] (405) SN:[id number] Ordering Provid er: JELANI SÁNCHEZ Report Released Date/Time: Dec 06, 2021 11:57 AM Reporting Lab: [place] [facility] [address] [facility] [address] Performing Lab: [place] [facility] [address] [facility] [facility] [address] UREA NITROGEN 13 7-25 SODIUM 138 135-145 POTASSIUM 3.8 3.5-5.0 CHLORIDE 103 100-110 CARBON DIOXIDE 23 20-30 ANION GAP 12 4-16 GLUCOSE 105 H 65-100 CREATININE 0.90 0.5-1.5 CALCIUM 8.7 8.5-10.5 eGFR(CKD-EPI 2020) >90.0 >60 Dec 06, 2021 12:00 PM [facility] TROPONIN II Sp ecimen Type: PLASMA Comment: Tests performed on Pham [employer] (405) SN:[id number] Ordering Provid er: JELANI SÁNCHEZ Report Released Date/Time: Dec 06, 2021 11:57 AM Reporting Lab: [facility] DO[place] T [facility] [address] [facility] [facility] [address] Performing Lab: [facility] [address] [facility] [address] TROPONIN II 0.03 0.00-0.29 Dec 06, 2021 12:00 PM [facility] BNP(P) Sp ecimen Type: PLASMA Comment: Tests performed on Pham [employer] (405) SN:[id number] Ordering Provid er: JELANI SÁNCHEZ Report Released Date/Time: Dec 06, 2021 11:57 AM Reporting Lab: [facility] [facility] [address] [facility] [address] Performing Lab: [facility] [address] [facility] [address] BNP(P) 224.8 H 10-100 Dec 06, 2021 [place] COVID-19+FLU/RSV DIAGNOSTIC Spe cimen Type: NASOPHARYNX 12:00 PM [facility] PANEL(405) Comment: Tests performed on [employer] Genexpert (405) Critical results called to and read back by: ALESHIA WILKINSON RN 12/06/21 @ 1312 Ordering Provid er: JELANI SÁNCHEZ Report Released Date/Time: Dec 06, 2021 11:57 AM Reporting Lab: [place] T [facility] [address] [facility] [address] Performing Lab: [place] [facility] [address] [facility] [facility] [address] FLU A(PCR) NEGATIVE NEGATIVE FLU B(PCR) NEGATIVE NEGATIVE RSV(PCR) NEGATIVE NEGATIVE COVID-19(LUB-vot-SPEMTWRIF) DETECTED HH NO T DETECTED Dec 06, 2021 12:00 [facility] Sp ecimen Type: BLOOD No comment enter ed. Ordering Provid er: JELANI SÁNCHEZ Report Released Date/Time: Dec 06, 2021 11:57 AM Reporting Lab: [facility] [address] [address] Performing Lab: [facility] [address] [address] WBC 7.2 4.5-11.0 RBC 4.86 4.23-5.66 HGB [...] took place. Date/Time Smoking Status/Tobacco Use Comment [facility] Apr 01, 2020 01:16 PM QUIT TOBACCO USE 1-7 YEARS AGO [facility] Mar 24, 2020 03:00 PM QUIT TOBACCO USE 1-7 YEARS AGO [facility] Feb 21, 2019 04:11 PM QUIT TOBACCO USE 1-7 YEARS AGO [facility] Feb 20, 2019 03:38 PM QUIT TOBACCO USE 1-7 YEARS AGO [facility] Feb 03, 2019 09:50 AM QUIT TOBACCO USE 1-7 YE[facility] AGO [facility] May 25, 2016 11:53 PM QUIT TOBACCO USE IN PAST YEAR [facility] May 23, 2016 [...] W/WO CONTRAST: MARYELLEN LONG LUCAS LARES N [id number] -1950 [facility] Exm Date: DEC 13, 2021@12:57 Req Phys: ISATU TODD Loc: OP Unknown/0 12-15-2021@13:20 Img Loc: MRI IMAGING (OOS) Service: [facility]AL MEDICINE (Case [id number] COMPLETE) MRI ABDOMEN W/WO CONTRAST (M RI Detailed) CPT:79691 Reason for Study: further characterization of a [...] new lyphadenopathy REQUESTING MD: Isatu Todd PAGER: [phone] PHONE: [phone] Weight: 232.2 lb [105.32 kg] (12/12/2021 05:00) [...] patient will need to arrange for a wrecker driver to take him/her home after the [...] 15, 2021 Date Verified: DEC 15, 2021 Tent Worker E-Sig:/ES/MARYELLEN LONG Report: MRI ABDOMEN W/WO [...] MALIGNANCY Primary Interpreting Staff: MARYELLEN LONG Staff (Tent Worker) / Dec 10, 2021 09:[address] ABDOMEN & PELVIS: [facility] B[facility] MEEKL[facility] N [id number] -1950 [facility] Ex Date: DEC 10, 2021@09:30 Req Phys: ISATU TODD Loc: 1S MED/12-10@10:57 Img Loc: CT SCAN (OOS) Service: [facility] MEDICINE (Case [id number] COMPLETE) CT ABD & PELVIS WITHOUT CONT RAST (CT Detailed) CPT:13179 Reason for Study: 71 yo male with [...] INDEX - NO HEIGHTS FOUND Pager number: [phone] STAT orders MUST be call ed to RADIOLOGY [phone] to speak to the appropriate vehicle glass technician. Report Status: Verified Date Reported: DEC 10, 2021 Date Verified: DEC 10, 2021 Tent Worker E-Sig: Report: EXAM: CT abdomen and [...] ph nodes. READING PHYSICIAN: Ramone Munoz D.O. [phone] 12/10/2021 10:55 EDT [facility] National Teleradiology Program [phone] (For Medical Practitioner Use Only ) [address] [facility], [facility] [address], [address] [place] [address] Attention Patients / Veterans: If you have ques tions or concerns about these test results, please contact your o rdering provider or primary care team. Primary Diagnostic Code: SIGNIFICANT ABNORMALIT Y, ATTN NEEDED Primary Interpreting Staff: RADIOLOGY,OUTSIDE SERVICE, Staff Physician / Dec 09, 2021 07:34 AM BASW (MODIFIED): JESSIE CHENEY TARA ER JCLUCAS LARES N [id number] -1950 M [facility] Exm Date: DEC 09, 2021@07:34 Req Phys: PEYTONISATU Manjarrez Loc: 1S MED/12-09@11:26 Img Loc: XRAY (OOS) Service: [facility] MEDICINE (Case [id number] COMPLETE) BASW (MODIFIED) (RAD Detaile d) CPT:01624 Contrast Media : Barium Reason for Study: dysphagia ?esophageal spasm Clinical History: Report Status: Verified Date Reported: DEC 09, 2021 Date Verified: DEC 09, 2021 Tent Worker E-Sig:/ES/JESSIE CHENEY Report: BASW (MODIFIED) , [...] REQUIRED Primary Interpreting Staff: JESSIE CHENEY, RADIOLOGIST (Tent Worker) /TLC Dec 06, 2021 12:[address] CHEST (INCLUDES ADRENALS): JESSIE CHENEY LUCAS LARES N [id number] -1950 M [facility] Exm Date: DEC 06, 2021@12:59 Req Phys: JELANI SÁNCHEZ Pat Loc: [facility] ED DAYS M 1RD (Req'g Loc) Img Loc: CT SCAN (OOS) Service: Unknown (Case [id number] COMPLETE) CT THORAX W/O CONT (CT Detai led) CPT:68677 Reason for Study: Opacification right chest Clinical History: No contrast allergy BUN: 13 (12/06/21 12:00) CREATI: 0.90 (12/06/21 12:00) eGFR 05/16/21 09:43 52 L Weight: 232.6 lb [105.51 kg] (12/06/2021 11:40) BODY MASS INDEX - NO HEIGHTS FOUND Pager number: [phone] STAT orders MUST be called t o RADIOLOGY [phone] to speak to the appropriate vehicle glass technician. Indications - Other: Opacification right chest, covid positive, lung cancer histo Report Status: Verified Date Reported: DEC 06, 2021 Date Verified: DEC 06, 2021 Tent Worker E-Sig:/ES/JESSIE CHENEY Report: CT THORAX W/O [...] REQUIRED Primary Interpreting Staff: JESSIE CHENEY, RADIOLOGIST (Tent Worker) Primary Interpreting Resident: PRINCE CHAMPION, Resident /BR Dec 06, 2021 11:58 AM CHEST SINGLE VIEW: JESSIE CHENEY DOUGLAS N [id number] -1950 M [facility] Exm Date: DEC 06, 2021@11:58 Req Phys: GONZALO,JELANI Link Pat Loc: [facility] ED DAYS M 1RD (Req'g Loc) Img Loc: XRAY (OOS) Service: Unknown (Case [id number] COMPLETE) CHEST SINGLE VIEW (RAD Detai led) CPT:34991 Proc Modifiers : PORTABLE EXAM Reason for Study: SOB, home covid test positive Clinical History: Report Status: Verified Date Reported: DEC 06, 2021 Date Verified: DEC 06, 2021 Tent Worker E-Sig:/ES/JESSIE CHENEY Report: Exam type: Chest [...] REQUIRED Primary Interpreting Staff: JESSIE CHENEY, RADIOLOGIST (Tent Worker) /TLC Pathology Reports: +/- 30 days [...] [facility]AREY MONTOYA [facility] [CLIA# [id number]] [address] [place] [address] - - - - - - [...] automatically d ocumented from SURGERY package case #[id number] Field (#32) PRINCIPAL PRE-OP DIAGNOSIS, (#.72) OTHER [...] automatically d ocumented from SURGERY package case #[id number] Field (#34) PRINCIPAL POST-OP DIAG, (#.74) OTHER [...] Label: Lucas Meek Paperwork: Lucas Meek Cassette: [id number];..;KALYANI;.;405;[phone] Specimen is labeled: ES bx Received in formalin are several pieces of pale boyd and brown tissue, 1.2 x 0.7 cm in aggregate. Submitted entirely in 1 cassette [id number];..;KALYANI;.;405;[id number] SAW 12/15/2021 Microscopic exam: *+* MODIFIED REPORT [...] in rendering the final pathologic diagnosis. [address] [address] CPT: 25250 /emely/ NIURKA Yeung MD Signed Jan 03, 2022@10:28 Performing Laboratory: Surgical Pathology Report Performed By: CAREY DOYLE Gorge [facility] [CLIA# [id number]] [address] [place] [address] $FTR - - - - - [...] - - LUCAS MEEK STANDARD FORM 515 ID:[id number] SEX:M :1950 AGE: 71 LOC: SDM END [...] Reporting Lab: [facility] [CLIA# [id number]] [address] [place] [address] - - - - - - [...] automatically d ocumented from SURGERY package case #[id number] Field (#32) PRINCIPAL PRE-OP DIAGNOSIS, (#.72) OTHER [...] automatically d ocumented from SURGERY package case #[id number] Field (#34) PRINCIPAL POST-OP DIAG, (#.74) OTHER [...] Label: Lucas Meek Paperwork: Lucas Meek Cassette: [id number];..;KALYANI;.;405;[phone] Specimen is labeled: ES bx Received in formalin are several pieces of pale boyd and brown tissue, 1.2 x 0.7 cm in aggregate. Submitted entirely in 1 cassette [id number];..;KALYANI;.;405;[id number] SAW 12/15/2021 Microscopic exam: DIAGNOSIS: A. 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 Kendell long. TIARA Coombs was notified on 12/21/21. The attending pathologist who signature mansoor ears on this report has reviewed all diagnostic slides and has edited t he gross and/or microscopic portion of this report in rendering the final pathologic diagnosis. [address] [address] CPT: 48650 /emely/ NIURKA Yeung MD Signed Dec 21, 2021@11:46 Performing Laboratory: Surgical Pathology Report Performed By: [facility] [CLIA# [id number]] [address] [place] [address] $FTR - - - - - [...] - - LUCAS MEEK STANDARD FORM 515 ID:[id number] SEX:M :1950 AGE: 71 LOC: SDM END PCP: Isatu Todd /charmaine Yeung MD Signed: 12/21/2021 11:46 Dec 06, 2021 03:30 PM LR MICROBIOLOGY REPORT: [facility] Reporting Lab: [facility] [CLIA# [id number]] [address] [place] [address] Accession [UID]: [id number] [[id number]] Receiv ed: Dec 06, 2021@16:14 Collection sample: BLOOD CUL T BOTTLE(NIRMAL/AERO)Collection date: Dec 06, 2021 15:30 Site/Specimen: BLOOD Provider: JELANI SÁNCHEZ Comment on specimen: LAC Test(s) ordered: BLOOD CULTURE ANAEROBI C....... completed: Dec 12, 2021 06:18 * BACTERIOLOGY FINAL REPORT => Dec 12, 2021 06:1 8 TECH CODE: [id number] Bacteriology Remark(s): NO GROWTH IN 5 DAYS =--=--=--=--=--=--=--=--=--=--=--=--=--= --=--=--=--=--=--=--=--=--=--=--=--=-- Performing Laboratory: Bacteriology Report Performed By: [facility] [CLIA# [id number]] [address] [place] [address] Dec 06, 2021 03:30 PM LR MICROBIOLOGY REPORT: [facility] Reporting Lab: [facility] [CLIA# [id number]] [address] [place] [address] Accession [UID]: [id number] [[id number]] Receiv ed: Dec 06, 2021@16:14 Collection sample: BLOOD CUL T BOTTLE(NIRMAL/AERO)Collection date: Dec 06, 2021 15:30 Site/Specimen: BLOOD Provider: JELANI SÁNCHEZ Comment on specimen: LAC Test(s) ordered: BLOOD CULTURE AEROBIC. ........ completed: Dec 12, 2021 06:17 * BACTERIOLOGY FINAL REPORT => Dec 12, 2021 06:1 7 TECH CODE: [id number] Bacteriology Remark(s): NO GROWTH IN 5 DAYS =--=--=--=--=--=--=--=--=--=--=--=--=--= --=--=--=--=--=--=--=--=--=--=--=--=-- Performing Laboratory: Bacteriology Report Performed By: [facility] [CLIA# [id number]] [address] [place] [address]
--- OUTSIDE RECORDS SUMMARY | 2022-01-19 09:19 | XMS_ITS ---
DAILY HOSPITALIZATION DATA [facility] Encounter Summary Created on:December 12, 2021 Patient:LUCAS MEEK Sex:Male :1950 Author Organization [facility] Address [address] [place] [id number] Support Name Relationship Address Phone YUSRA MEEK Unavailable [address] [place] [place] [address] YUSRA MEEK Unavailable [address] [place] [facility] [place] [place] [address] CLAY MOSLEY Unavailable Unavailable SJ SANTACRUZ Unavailable [...] MEDICARE MEDICARE PART Jun 18, PART A [id number] DO KALYANI PATIENT (WNR) (M) A 2016 13A 1 [place] MEDICARE MEDICARE PART Jun 18, PART B [id number] DO KALYANI PATIENT (WNR) (M) B 2017 13A 1 [place] MEDICARE MEDICARE PART Jun 18, PART B [id number] KALYANIDO PATIENT (WNR) (M) B 2017 VH81 2 [place] MEDICARE MEDICARE PART Jun 18, PART A [id number] DO KALYANI PATIENT (WNR) (M) A 2017 VH81 2 [place] UNITED MEDICARE MCR(W Jun 18 [id number] Luz MEEK PATIENT HEALTHCARE ADVANTAGE NR) 2021 37 0 [facility] (WNR) Selected Encounter This section includes the information on record at [place] for the Encounter. Date/Time Encounter Type Encounter Description Reason Provider Source Dec 12, 2021 04:21 Inpatient Visit DAILY HOSPITALIZATION DATA AM [facility] Encounter Template Text not used by [place] [...] AM AMBUL[place]ORY - NONE [place] [facility] Jan 06, 2022 02:00 PM [place] [facility] Jan 10, 2022 11:30 AM AMBULATORY - MEDICINE [facility] Jan 24, 2022 08:00 [place] [facility] Feb 21, 2022 10:00 AM AMBULATORY - SURG[place] [facility] [place] Mar 21, 2022 10:30 AM [...] The data comes from all [place] treatment [facility]. Test Date/Time Test Type Test Details Facility Name October 31, 2021 07:37 AM Consult Order [facility]-EGD [facility] Cons Belt Machine Operator's Choice November 15, 2021 10:37 AM Consult Order [facility] CARE-PODIATRY Cons Belt Machine Operator's Choice Dec 06, 2021 12:52 PM Pharmacy [place] Infusion Order [facility] Dec 06, 2021 03:24 PM [place]acy [place] [facility] Dec 06, 2021 03:40 PM [place]acy [place] [facility] Dec 15, 2021 08:41 AM Consult Order SPEECH PATHOLOGY [place] Cons [facility] Belt Machine Operator's Choice Jan 15, 2022 10:08 PM Consult Order [facility] CARE-PALLIATIVE CARE Cons Belt Machine Operator's Choice Lab Results: +/- 30 [...] Reference Range Comment Dec 15, 2021 [facility] [place] P4 GLU,BUN,CREAT,LYTES,CA Speci men Type: PLASMA 06:43 AM [facility] Comment: Tests performed on Personaling (405) SN:[id number] Ordering Provid er: ISATU TODD Report Released Date/Time: Dec 11, 2021 07:42 AM Reporting Lab: [facility] [address] [facility] [address] [address] Performing Lab: [facility] [address] [address] UREA NITROGEN 9 7-25 SODIUM 137 135-145 [...] DOYLE T [facility] [address] [facility] [address] [address] Performing Lab: [facility] [address] [address] [address] WBC 5.7 4.5-11.0 RBC 4.22 L 4.23-5.66 [...] ESOPHAGUS 02:59 PM [facility] Comment: ~For T est: CYTOGENETIC FISH([facility] ~FISH HER 2 NUE, FFPE See full report in Journalism Online Image display viewer/tab#LAB-Reference Ordering Provid er: NIURKA MILLER Report Released Date/Time: Dec 21, 2021 12:11 PM Reporting Lab: [facility] [address] [address] Performing Lab: [facility] CYTOGENETIC FISH([facility] comment Dec 14, 2021 [facility] P4 GLU,BUN,CREAT,LYTES,CA Speci men Type: PLASMA 06:27 AM [facility] Comment: Tests performed on Personaling (405) SN:[id number] Ordering Provid er: ISATU TODD Report Released Date/Time: Dec 11, 2021 07:42 AM Reporting Lab: [facility] [address] [address] Performing Lab: [facility] [address] [facility] [address] UREA NITROGEN 10 7-25 SODIUM 137 135-145 [...] Lab: [facility] [address] [address] Performing Lab: [facility] [address] [address] [address] WBC 6.0 4.5-11.0 RBC 4.29 4.23-5.66 HGB [...] GLU,BUN,CREAT,LYTES,CA Speci men Type: PLASMA 06:34 AM [facility] Comment: Tests performed on Personaling (405) SN:[id number] Ordering Provid er: ISATU TODD Report Released Date/Time: Dec 11, 2021 07:42 AM Reporting Lab: [facility] [address] [address] Performing Lab: [facility] [address] [address] UREA NITROGEN 12 7-25 SODIUM 136 135-145 [...] Lab: [facility] [address] [address] Performing Lab: [facility] [address] [address] WBC 5.6 4.5-11.0 RBC 4.28 4.23-5.66 HGB [...] GLU,BUN,CREAT,LYTES,CA Speci men Type: PLASMA 06:21 AM [facility] Comment: Tests performed on Personaling (405) SN:[id number] Ordering Provid er: ISATU TODD Report Released Date/Time: Dec 11, 2021 07:42 AM Reporting Lab: [facility] [address] [address] [address] Performing Lab: [facility] [address] [address] UREA NITROGEN 11 7-25 SODIUM 139 135-145 [...] Dec 10, 2021 07:22 AM Reporting Lab: [facility] [address] [address] Performing Lab: [facility] [address] [address] WBC 5.5 4.5-11.0 RBC 4.37 4.23-5.66 HGB [...] 0.00 0-0 Dec 12, 2021 06:00 AM ApprovaT [facility] MAGNESIUM Sp ecimen Type: PLASMA Comment: Testin g Performed on Personaling (405) SN:[id number] Ordering Provid er: ISATU TODD Report Released Date/Time: Dec 12, 2021 08:24 AM Reporting Lab: [place] [facility] [address] [address] Performing Lab: [facility] [employer] [address] [address] MAGNESIUM 1.8 1.6-2.6 Dec 12, 2021 06:00 AM ApprovaT 365 [employer] Teacher[employer] PHOSPHORUS Sp ecimen Type: PLASMA Comment: Testin g Performed on Personaling (405) SN:[id number] Ordering Provid er: ISATU TODD Report Released Date/Time: Dec 12, 2021 08:24 AM Reporting Lab: [place] [employer] [facility] [address] [address] Performing Lab: [place] [employer] [address] [address] PHOSPHORUS 3.1 2.5-5.0 Dec 11, 2021 06:15 AM [facility] [employer] ELECTROLYTES Sp ecimen Type: PLASMA Comment: Tests performed on Personaling (405) SN:[id number] Ordering Provid er: ISATU TODD Report Released Date/Time: Dec 10, 2021 07:22 AM Reporting Lab: [place] [employer] [facility] [address] [address] Performing Lab: [place] [employer] [facility] [address] [address] SODIUM 137 135-145 POTASSIUM 4.3 3.5-5.0 CHLORIDE 108 100-110 CARBON DIOXIDE 20 20-30 ANION GAP 9 4-16 Dec 11, 2021 06:15 AM [place] [employer]ise Path RoboticsT [facility] CBC PROFILE Sp ecimen Type: BLOOD Comment: Result s checked Ordering Provid er: ISATU TODD Report Released Date/Time: Dec 10, 2021 07:22 AM Reporting Lab: [place] [facility]MEGAT [facility] [address] [address] Performing Lab: [facility] OMEGAT [facility] [address] [address] WBC 5.8 4.5-11.0 RBC 4.37 4.23-5.66 HGB [...] 0.00 0-0 Dec 11, 2021 06:00 AM [facility] PHOSPHORUS Sp ecimen Type: PLASMA Comment: Tests performed on Personaling (214) SN:[id number] Results checked Ordering Provid er: ISATU TODD Report Released Date/Time: Dec 11, 2021 07:44 AM Reporting Lab: [facility] [address] [address] Performing Lab: [place] OMEGAT AKMROC [address] [address] PHOSPHORUS 3.0 2.5-5.0 Dec 10, 2021 08:05 AM [place] [facility] MAGNESIUM Sp ecimen Type: PLASMA Comment: [place] [id number] on Dec 10, 2021@08:31 Tests performed on Personaling (405) SN:[id number] Ordering Provid er: ISATU TODD Report Released Date/Time: Dec 10, 2021 07:22 AM Reporting Lab: [place] [facility] [address] [place] [facility] [place] [place] [address] Performing Lab: [place] [facility] [address] [place] [facility] [place] [address] MAGNESIUM 1.7 1.6-2.6 Dec 10, 2021 08:05 AM [place] [facility] PHOSPHORUS Sp ecimen Type: PLASMA Comment: [place] [id number] on Dec 10, 2021@08:31 Tests performed on Personaling (405) SN:[id number] Ordering Provid er: ISATU TODD Report Released Date/Time: Dec 10, 2021 07:22 AM Reporting Lab: [place] [facility] [address] [place] [facility] [place] [address] Performing Lab: [place] [facility] [address] [place] [facility] [place] [address] PHOSPHORUS 1.8 L 2.5-5.0 Dec 10, 2021 08:05 AM [place] UREA NITROGEN Specimen Type: PLASMA [facility] Comment: [place] [id number] on Dec 10, 2021@08:31 Tests performed on Personaling (405) SN:[id number] Ordering Provid er: ISATU TODD Report Released Date/Time: Dec 10, 2021 07:22 AM Reporting Lab: [place] [facility] [address] [place] [facility] [place] [address] Performing Lab: [place] [facility] [address] [place] [facility] [place] [address] UREA NITROGEN 8 7-25 Dec 10, 2021 08:05 AM [place] [facility] GLUCOSE Sp ecimen Type: PLASMA Comment: [place] [id number] on Dec 10, 2021@08:31 Tests performed on Personaling (405) SN:[id number] Ordering Provid er: ISATU TODD Report Released Date/Time: Dec 10, 2021 07:22 AM Reporting Lab: [place] [facility] [address] [address] Performing Lab: [place] [facility] [address] [address] [address] GLUCOSE 144 H 65-100 Dec 10, 2021 08:05 AM [place] [facility] ELECTROLYTES Sp ecimen Type: PLASMA Comment: [place] [id number] on Dec 10, 2021@08:31 Tests performed on Personaling (405) SN:[id number] Ordering Provid er: ISATU TODD Report Released Date/Time: Dec 10, 2021 07:22 AM Reporting Lab: [place] [facility] [address] [facility] [address] Performing Lab: [place] [facility] [address] [address] SODIUM 139 135-145 POTASSIUM 3.7 3.5-5.0 CHLORIDE 107 100-110 CARBON DIOXIDE 24 20-30 ANION GAP 8 4-16 Dec 10, 2021 08:05 [place] CREATININE WITH eGFR Specime n Type: PLASMA AM [facility] PANEL Comment: [place] [id number] on Dec 10, 2021@08:31 Tests performed on Pham PocketSuite (405) SN:[id number] Ordering Provid er: ISATU TODD Report Released Date/Time: Dec 10, 2021 07:22 AM Reporting Lab: [place] [facility] [address] [facility] [address] Performing Lab: [place] [facility] [address] [address] CREATININE 0.78 0.5-1.5 eGFR(CKD-EPI 2020) >90.0 >60 Dec 10, 2021 08:05 AM [place] [facility] CBC PROFILE Sp ecimen Type: BLOOD No comment enter ed. Ordering Provid er: ISATU TODD Report Released Date/Time: Dec 10, 2021 07:22 AM Reporting Lab: [place] [facility] [address] [facility] [address] Performing Lab: [place] [facility] [address] [address] WBC 7.0 4.5-11.0 RBC 4.54 4.23-5.66 HGB [...] 0.00 0-0 Dec 10, 2021 08:05 AM [facility] CALCIUM Sp ecimen Type: PLASMA Comment: [place] [id number] on Dec 10, 2021@08:31 Tests performed on Personaling (405) SN:[id number] Ordering Provid er: ISATU TODD Report Released Date/Time: Dec 10, 2021 07:22 AM Reporting Lab: [facility] [address] [address] Performing Lab: [facility] [address] [address] CALCIUM 8.3 L 8.5-10.5 Dec 09, 2021 06:46 AM [place] [facility] MAGNESIUM Sp ecimen Type: PLASMA Comment: Tests performed on Personaling (405) SN:[id number] Ordering Provid er: ISATU TODD Report Released Date/Time: Dec 08, 2021 10:23 AM Reporting Lab: [facility] [address] [address] Performing Lab: [facility] [address] [address] MAGNESIUM 1.6 1.6-2.6 Dec 09, 2021 [facility] P4 GLU,BUN,CREAT,LYTES,CA Speci men Type: PLASMA 06:46 AM [facility] Comment: Tests performed on Personaling (405) SN:[id number] Ordering Provid er: ISATU TODD Report Released Date/Time: Dec 08, 2021 05:00 PM Reporting Lab: [facility] [address] [address] Performing Lab: [facility] [address] [address] UREA NITROGEN 6 L 7-25 SODIUM 134 [...] Lab: [facility] [address] [address] Performing Lab: [facility] [address] [address] WBC 7.1 4.5-11.0 RBC 4.40 4.23-5.66 HGB [...] 0.00 0-0 Dec 08, 2021 06:39 AM [place] [employer] T [facility] MAGNESIUM Sp ecimen Type: PLASMA Comment: Testin g Performed on Personaling (405) SN:[id number] Ordering Provid er: ISATU TODD Report Released Date/Time: Dec 07, 2021 10:32 AM Reporting Lab: [facility] [address] [address] Performing Lab: [facility] [address] [address] MAGNESIUM 1.5 L 1.6-2.6 Dec 08, 2021 [place] [employer] T P4 GLU,BUN,CREAT,LYTES,CA Speci men Type: PLASMA 06:39 AM [facility] Comment: Testin g Performed on Personaling (405) SN:[id number] Ordering Provid er: ISATU TODD Report Released Date/Time: Dec 07, 2021 10:32 AM Reporting Lab: [employer] T [facility] [address] [address] Performing Lab: [facility] [address] [address] UREA NITROGEN 6 L 7-25 SODIUM 136 135-145 POTASSIUM 3.3 L 3.5-5.0 CHLORIDE 104 100-110 CARBON DIOXIDE 22 20-30 ANION GAP 10 4-16 GLUCOSE 133 H 65-100 CREATININE 0.76 0.5-1.5 CALCIUM 8.4 L 8.5-10.5 eGFR(CKD-EPI 2020) >90.0 >60 Dec 08, 2021 06:39 AM [place] [employer] T [facility] CBC PROFILE Sp ecimen Type: BLOOD No comment enter ed. Ordering Provid er: ISATU TODD Report Released Date/Time: Dec 07, 2021 10:32 AM Reporting Lab: [facility] [address] [address] Performing Lab: [facility] [address] [address] WBC 8.4 4.5-11.0 RBC 4.75 4.23-5.66 HGB [...] 0.00 0-0 Dec 07, 2021 [facility] P4 GLU,BUN,CREAT,LYTES,CA Speci men Type: PLASMA 06:42 AM [facility] Comment: Tests performed on Personaling (405 SN:[id number] Ordering Provid er: PORFIRIO WALTERS Report Released Date/Time: Dec 06, 2021 06:57 PM Reporting Lab: [facility] [address] [address] Performing Lab: [facility] [address] [address] UREA NITROGEN 9 7-25 SODIUM 135 135-145 POTASSIUM 3.5 3.5-5.0 CHLORIDE 103 100-110 CARBON DIOXIDE 22 20-30 ANION GAP 10 4-16 GLUCOSE 92 65-100 CREATININE 0.73 0.5-1.5 CALCIUM 8.0 L 8.5-10.5 eGFR(CKD-EPI 2020) >90.0 >60 Dec 07, 2021 06:42 [place] LIVER PROFILE Specimen Typ e: PLASMA AM VAOC Comment: Tests performed on Indigo Identityware Furniture Manager (405) SN:[id number] Ordering Provid er: PORFIRIO WALTERS Report Released Date/Time: Dec 06, 2021 06:57 PM Reporting Lab: [facility] [address] [address] Performing Lab: [facility] [address] [address] PROTEIN, TOTAL 5.7 L 6.0-8.5 ALBUMIN 2.4 L 3.2-5.0 BILIRUBIN, TOTAL 0.4 0.2-1.2 ALKALINE PHOSPHATASE 109 40-150 ALT(SGPT) 10 7-52 AST(SGOT) 15 5-34 FIB-4 SCORE 1.92 <2.67 Dec 07, 2021 06:42 AM [place] [facility] CBC PROFILE Specimen Type: BLOOD [facility] No comment enter ed. Ordering Provid er: PORFIRIO WALTERS Report Released Date/Time: Dec 06, 2021 06:57 PM Reporting Lab: [facility] [address] [address] Performing Lab: [facility] [address] [address] WBC 5.7 4.5-11.0 RBC 4.15 L 4.23-5.66 [...] [facility] %) AUTOMATED Comment: Tests performed on Personaling (405) SN:[id number] Ordering Provid er: ISATU TODD Report Released Date/Time: Dec 07, 2021 10:28 AM Reporting Lab: [place] [facility] [address] [address] Performing Lab: [place] [facility] [address] [address] RETICULOCYTES (%) AUTOMATED 1.23 0. 6-2.0 RETICULOCYTES (ABS) AUTOMATED 0.052 0.030-0.090 Dec 06, 2021 09:45 [place] MRSA SURVL NARES Specimen Ty pe: NARES PM [facility] DNA No comment enter ed. Ordering Provid er: ALVARO VARGHESE Report Released Date/Time: Dec 07, 2021 02:20 AM Reporting Lab: [place] [facility] [address] [address] Performing Lab: [place] [facility] [address] [address] MRSA SURVL NARES DNA NEGATIVE NEGATIVE Dec 06, 2021 06:00 [place] URINALYSIS W/REFLEX TO Speci men Type: URINE PM [facility] CULTURE No comment enter ed. Ordering Provid er: JELANI SÁNCHEZ Report Released Date/Time: Dec 06, 2021 11:57 AM Reporting Lab: [place] [facility] [address] [address] Performing Lab: [place] [facility] [address] [address] URINE COLOR Arlin YELLOW SPECIFIC GRAVITY 1.029 [...] 21, [place] VAR[place]ANT Comment: https://www.cdc.gov/coronavirus/2019-ncov/cases-updates/variant- surveillance/variant-info.html The Toutiao SARS CoV 2 [employer] Research Assay-GX is a next-generation sequencing (NGS) assa 2021 [facility] SEQUENCING y that determine s the complete genome sequence of the SARS-CoV-2 virus. The assay contains variant-tolerant primers to broaden and improve the coverage for variant detection and increase the sensitivity 12:00 [facility] PNL(WH) of the panel to enable detection from lower viral titer samples. The assay is run on the Tealium Sequencer, which performs automated library preparation, sequencing, analysis, and reporting. PM The sequence an alysis includes determination of viral phylogenetic lineage by comparison to the reference strain Wuhan-Hu-1, GenBank: [id number]. Sequence determination may not be possible owing [...] 01:13 PM Reporting Lab: [facility] [address] [address] Performing Lab: [facility] [address] [facility] [address] SARS-CoV-2 CLADE() 22C (OMICRON) SARS-CoV-2 LINEAGE() BA.2.12.1 Dec 06, 2021 12:00 [facility] COVID-19 AG SCREEN Specimen Type: NASAL CAVITY PM [facility] PANEL BINAX(405) Comment: Testi ng Performed By: Mike Briscoe Ordering Provid er: JELANI SÁNCHEZ Report Released Date/Time: Dec 08, 2021 08:23 AM Reporting Lab: [facility] [address] [address] Performing Lab: [facility] [address] [address] COVID-19 AG SCRN(wrj BINAX) POSITIVE HH NE G Dec 06, 2021 12:00 PM [facility] TROPONIN II Sp ecimen Type: PLASMA Comment: Tests performed on Pham Furniture Manager (405) SN:[id number] Ordering Provid er: JELANI SÁNCHEZ Report Released Date/Time: Dec 06, 2021 11:57 AM Reporting Lab: [facility] [address] [place] [facility] [place] [address] Performing Lab: [facility] [address] [address] TROPONIN II 0.03 0.00-0.29 Dec 06, 2021 12:00 PM [facility] LIVER PROFILE Sp ecimen Type: PLASMA Comment: Testin g Performed on Pham Furniture Manager (405) SN:[id number] Ordering Provid er: JELANI SÁNCHEZ Report Released Date/Time: Dec 06, 2021 11:57 AM Reporting Lab: [facility] [address] [facility] [address] Performing Lab: [facility] [address] [address] PROTEIN, TOTAL 6.6 6.0-8.5 ALBUMIN 2.8 L 3.2-5.0 BILIRUBIN, TOTAL 0.6 0.2-1.2 ALKALINE PHOSPHATASE 134 40-150 ALT(SGPT) 13 7-52 AST(SGOT) 18 5-34 FIB-4 SCORE 1.94 <2.67 Dec 06, 2021 [place] P4 GLU,BUN,CREAT,LYTES,CA Speci men Type: PLASMA 12:00 PM [facility] Comment: Testin g Performed on Pham Furniture Manager (405) SN:[id number] Ordering Provid er: JELANI SÁNCHEZ Report Released Date/Time: Dec 06, 2021 11:57 AM Reporting Lab: [facility] [address] [address] Performing Lab: [facility] [facility] [address] [address] UREA NITROGEN 13 7-25 SODIUM 138 135-145 POTASSIUM 3.8 3.5-5.0 CHLORIDE 103 100-110 CARBON DIOXIDE 23 20-30 ANION GAP 12 4-16 GLUCOSE 105 H 65-100 CREATININE 0.90 0.5-1.5 CALCIUM 8.7 8.5-10.5 eGFR(CKD-EPI 2020) >90.0 >60 Dec 06, 2021 12:00 PM [facility] BNP[facility] Sp ecimen Type: PLASMA Comment: Tests performed on Pham Furniture Manager (405) SN:[id number] Ordering Provid er: JELANI SÁNCHEZ Report Released Date/Time: Dec 06, 2021 11:57 AM Reporting Lab: [facility] [address] [facility] [address] Performing Lab: [facility] [address] [address] BNP(P) 224.8 H 10-100 Dec 06, 2021 [place] COVID-19+FLU/RSV DIAGNOSTIC Spe cimen Type: NASOPHARYNX 12:00 PM [facility] PANEL(405) Comment: Tests performed on Geofusionxpert (405) Critical results called to and read back by: ALESHIA WILKINSON RN 12/06/21 @ 1312 Ordering Provid er: JELANI SÁNCHEZ Report Released Date/Time: Dec 06, 2021 11:57 AM Reporting Lab: [place] T [facility] [address] [facility] [facility] [address] Performing Lab: [place] [facility] [address] [facility] [address] FLU A(PCR) NEGATIVE NEGATIVE FLU B(PCR) NEGATIVE NEGATIVE RSV(PCR) NEGATIVE NEGATIVE COVID-19(AVU-rkp-AEILPKLOG) DETECTED HH NO T DETECTED Dec 06, 2021 12:00 PM [facility] Sp ecimen Type: BLOOD No comment enter ed. Ordering Provid er: JELANI SÁNCHEZ Report Released Date/Time: Dec 06, 2021 11:57 AM Reporting Lab: [facility] [address] [address] Performing Lab: [facility] [address] [address] WBC 7.2 4.5-11.0 RBC 4.86 4.23-5.66 HGB [...] 2021 07:43 /min mm[Hg] [place] PM [place] [facility] Dec 12, 0 [place] 2021 07:37 [place] [facility] Dec 12, 0 WHITE 2021 02:17 [place] PM [place] [facility] Dec 12, 98 F 82 127/76 18 /min 97 % WHITE 2021 02:01 /min mm[Hg] [place] PM T [facility] Dec 12, 0 2021 10:59 RIVER AM [facility] Social History: Smoking [...] took place. Date/Time Smoking Status/Tobacco Use Comment [facility] Apr 01, 2020 01:16 PM QUIT TOBACCO USE 1-7 YEARS AGO [facility] Mar 24, 2020 03:00 PM QUIT TOBACCO USE 1-7 YEARS AGO [facility] Feb 21, 2019 04:11 PM QUIT TOBACCO USE 1-7 YEARS AGO [facility] Feb 20, 2019 03:38 PM QUIT TOBACCO USE 1-7 YEARS AGO [facility] Feb 03, 2019 09:50 AM QUIT TOBACCO USE 1-7 YEARS AGO [facility] May 25, 2016 11:53 PM QUIT TOBACCO USE IN PAST YEAR [facility] May 23, 2016 06:57 PM [...] W/WO CONTRAST: MARYELLEN LONG LUCAS LARES N [id number] -1950 [facility] Exm Date: DEC 13, 2021@12:57 Req Phys: ISATU TODD Loc: OP Unknown/0 12-15-2021@13:20 Img Loc: MRI IMAGING (OOS) Service: [facility]AL MEDICINE (Case [id number] COMPLETE) MRI ABDOMEN W/WO CONTRAST (M RI Detailed) CPT:75921 Reason for Study: further characterization of a [...] new lyphadenopathy REQUESTING MD: Isatu Todd PAGER: [phone] PHONE: [phone] Weight: 232.2 lb [105.32 kg] (12/12/2021 05:00) [...] patient will need to arrange for a electric lift 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 to take him/her home after [...] 15, 2021 Date Verified: DEC 15, 2021 [employer]ipshear Operator E-Sig:/ES/MARYELLEN LONG Report: MRI ABDOMEN W/WO [...] MALIGNANCY Primary Interpreting Staff: MARYELLEN LONG Staff (Ripshear Operator) / Dec 10, 2021 09:[address] ABDOMEN & PELVIS: [facility] N [id number] -1950 [facility] Ex Date: DEC 10, 2021@09:30 Req Phys: ISATU TODD Loc: 1S MED/12-10@10:57 Img Loc: CT SCAN (OOS) Service: [facility] MEDICINE (Case [id number] COMPLETE) CT ABD & PELVIS WITHOUT CONT RAST (CT Detailed) CPT:09755 Reason for Study: 71 yo male with [...] INDEX - NO HEIGHTS FOUND Pager number: [phone] STAT orders MUST be call ed to RADIOLOGY [phone] to speak to the appropriate cryptologic technician. Report Status: Verified Date Reported: DEC 10, 2021 Date Verified: DEC 10, 2021 Ripshear Operator E-Sig: Report: EXAM: CT abdomen and [...] aneurysm. Lymph Nodes: Multiple celiac and portocaval tseirng tty lymph nodes, which have increased in [...] ph nodes. READING PHYSICIAN: Ramone Munoz D.O. [phone] 12/10/2021 10:55 EDT [facility] National Teleradiology Program [phone] (For Medical Practitioner Use Only ) [address] [facility], [address], [address] [place] [address] Attention Patients / Veterans: If you have ques tions or concerns about these test results, please contact your o rdering provider or primary care team. Primary Diagnostic Code: SIGNIFICANT ABNORMALIT Y, ATTN NEEDED Primary Interpreting Staff: RADIOLOGY,OUTSIDE SERVICE, Staff Physician / Dec 09, 2021 07:34 AM BASW (MODIFIED): JESSIE CHENEY TARA ER JCLUCAS ALRES N [id number] -1950 [facility] Exm Date: DEC 09, 2021@07:34 Req Phys: PEYTONISATU Manjarrez Loc: 1S MED/12-09@11:26 Img Loc: XRAY (OOS) Service: [facility] MEDICINE (Case [id number] COMPLETE) BASW (MODIFIED) (RAD Detaile d) CPT:77930 Contrast Media : Barium Reason for Study: dysphagia ?esophageal spasm Clinical History: Report Status: Verified Date Reported: DEC 09, 2021 Date Verified: DEC 09, 2021 Ripshear Operator E-Sig:/ES/JESSIE CHENEY Report: BASW (MODIFIED) , [...] REQUIRED Primary Interpreting Staff: JESSIE CHENEY, RADIOLOGIST (Ripshear Operator) /TLC Dec 06, 2021 12:[address] CHEST (INCLUDES ADRENALS): JESSIE CHENEY LUCAS LARES N [id number] -1950 M [facility] Exm Date: DEC 06, 2021@12:59 Req Phys: JELANI SÁNCHEZ Pat Loc: [facility] ED DAYS M 1RD (Req'g Loc) Img Loc: CT SCAN (OOS) Service: Unknown (Case [id number] COMPLETE) CT THORAX W/O CONT (CT Detai led) CPT:76420 Reason for Study: Opacification right chest Clinical History: No contrast allergy BUN: 13 (12/06/21 12:00) CREATI: 0.90 (12/06/21 12:00) eGFR 05/16/21 09:43 52 L Weight: 232.6 lb [105.51 kg] (12/06/2021 11:40) BODY MASS INDEX - NO HEIGHTS FOUND Pager number: [phone] STAT orders MUST be called t o RADIOLOGY [phone] to speak to the appropriate cryptologic technician. Indications - Other: Opacification right chest, covid positive, lung cancer histo Report Status: Verified Date Reported: DEC 06, 2021 Date Verified: DEC 06, 2021 Ripshear Operator E-Sig:/ES/JESSIE CHENEY Report: CT THORAX W/O [...] REQUIRED Primary Interpreting Staff: JESSIE CHENEY, RADIOLOGIST (Ripshear Operator) Primary Interpreting Resident: PRINCE CHAMPION, Resident /BR Dec 06, 2021 11:58 AM CHEST SINGLE VIEW: JESSIE CHENEY DOUGLAS N [id number] -1950 M [facility] Exm Date: DEC 06, 2021@11:58 Req Phys: GONZALO,JELANI Link Pat Loc: [facility] ED DAYS M 1RD (Req'g Loc) Img Loc: XRAY (OOS) Service: Unknown (Case [id number] COMPLETE) CHEST SINGLE VIEW (RAD Detai led) CPT:91022 Proc Modifiers : PORTABLE EXAM Reason for Study: SOB, home covid test positive Clinical History: Report Status: Verified Date Reported: DEC 06, 2021 Date Verified: DEC 06, 2021 Ripshear Operator E-Sig:/ES/JESSIE CHENEY Report: Exam type: Chest [...] REQUIRED Primary Interpreting Staff: JESSIE CHENEY, RADIOLOGIST (Ripshear Operator) /TLC Pathology Reports: +/- 30 days [...] MILLER LOCAL TITLE: LR SURGICAL PATHOLOGY REPORT [facility] STANDARD TITLE: PATHOLOGY REPORT DATE OF NOTE: JAN 03, 2022@10:28:01 ENTRY DATE: JAN 03, 2022@10:28:01 AUTHOR: NIURKA MILLER EXP COSIGNER: URGENCY: STATUS: COMPLETED $APHDR Reporting Lab: [facility]TO[facility] [CLIA# [id number]] [address] [place] [address] - - - - - - [...] automatically d ocumented from SURGERY package case #[id number] Field (#32) PRINCIPAL PRE-OP DIAGNOSIS, (#.72) OTHER [...] automatically d ocumented from SURGERY package case #[id number] Field (#34) PRINCIPAL POST-OP DIAG, (#.74) OTHER [...] Label: Lucas Meek Paperwork: Lucas Meek Cassette: [id number];..;KALYANI;.;405;[id number] Specimen is labeled: ES bx Received in formalin are several pieces of pale boyd and brown tissue, 1.2 x 0.7 cm in aggregate. Submitted entirely in 1 cassette [id number];..;KALYANI;.;405;[id number] SAW 12/15/2021 Microscopic exam: *+* MODIFIED REPORT [...] in rendering the final pathologic diagnosis. [address] [address] CPT: 51380 /emely/ NIURKA Yeung MD Signed Jan 03, 2022@10:28 Performing Laboratory: Surgical Pathology Report Performed By: [facility] DO[facility] [CLIA# [id number]] [address] [place] [address] $FTR - - - - - [...] - - LUCAS MEEK STANDARD FORM 515 ID:[id number] SEX:M :1950 AGE: 71 LOC: SDM END PCP: Isatu Todd /emely/ NIURKA MILLER Staff Signed: 01/03/2022 10:28 Dec 21, 2021 11:46 AM LR SURGICAL PATHOLOGY REPORT: STEFANY MILLER [facility] LOCAL TITLE: LR SURGICAL PATHOLOGY REPORT [facility] STANDARD TITLE: PATHOLOGY REPORT DATE OF NOTE: DEC 21, 2021@11:46:59 ENTRY DATE: DEC 21, 2021@11:46:59 AUTHOR: NIURKA MILLER EXP COSIGNER: URGENCY: STATUS: COMPLETED $APHDR Reporting Lab: [facility] [CLIA# [id number]] [address] [place] [address] - - - - - - [...] $TEXT Submitted by: ISATU TODD Date obtained: aMrizol rojas 2021 14:59 - - - - [...] automatically d ocumented from SURGERY package case #[id number] Field (#32) PRINCIPAL PRE-OP DIAGNOSIS, (#.72) OTHER [...] automatically d ocumented from SURGERY package case #[id number] Field (#34) PRINCIPAL POST-OP DIAG, (#.74) OTHER [...] Label: Lucas Meek Paperwork: Lucas Meek Cassette: [id number];..;KALYANI;.;405;[phone] Specimen is labeled: ES bx Received in formalin are several pieces of pale boyd and brown tissue, 1.2 x 0.7 cm in aggregate. Submitted entirely in 1 cassette [id number];..;KALYANI;.;405;[id number] SAW 12/15/2021 Microscopic exam: DIAGNOSIS: A. 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 Kendell long. TIARA Coombs was notified on 12/21/21. The attending pathologist who signature mansoor ears on this report has reviewed all diagnostic slides and has edited t he gross and/or microscopic portion of this report in rendering the final pathologic diagnosis. [address] [address] CPT: 54646 /emely/ NIURKA Yeung MD Signed Dec 21, 2021@11:46 Performing Laboratory: Surgical Pathology Report Performed By: [facility] [CLIA# [id number]] [address] [place] [address] $FTR - - - - - [...] - - LUCAS MEEK STANDARD FORM 515 ID:[id number] SEX:M :1950 AGE: 71 LOC: SDM END PCP: Isatu Todd /charmaine Yeung MD Signed: 12/21/2021 11:46 Dec 06, 2021 03:30 PM LR MICROBIOLOGY REPORT: [facility] Reporting Lab: [facility] [CLIA# [id number]] [address] [place] [address] Accession [UID]: [id number] [[id number]] Receiv ed: Dec 06, 2021@16:14 Collection sample: BLOOD CUL T BOTTLE(NIRMAL/AERO)Collection date: Dec 06, 2021 15:30 Site/Specimen: BLOOD Provider: JELANI SÁNCHEZ Comment on specimen: LAC Test(s) ordered: BLOOD CULTURE ANAEROBI C....... completed: Dec 12, 2021 06:18 * BACTERIOLOGY FINAL REPORT => Dec 12, 2021 06:1 8 TECH CODE: [id number] Bacteriology Remark(s): NO GROWTH IN 5 DAYS =--=--=--=--=--=--=--=--=--=--=--=--=--= --=--=--=--=--=--=--=--=--=--=--=--=-- Performing Laboratory: Bacteriology Report Performed By: [facility] [CLIA# [id number]] [address] [place] [address] Dec 06, 2021 03:30 PM LR MICROBIOLOGY REPORT: [facility] Reporting Lab: [facility] [CLIA# [id number]] [address] [place] [address] Accession [UID]: [id number] [[id number]] Receiv ed: Dec 06, 2021@16:14 Collection sample: BLOOD CUL T BOTTLE(NIRMAL/AERO)Collection date: Dec 06, 2021 15:30 Site/Specimen: BLOOD Provider: JELANI SÁNCHEZ Comment on specimen: LAC Test(s) ordered: BLOOD CULTURE AEROBIC. ........ completed: Dec 12, 2021 06:17 * BACTERIOLOGY FINAL REPORT => Dec 12, 2021 06:1 7 TECH CODE: 18122 Bacteriology Remark(s): NO GROWTH IN 5 DAYS =--=--=--=--=--=--=--=--=--=--=--=--=--= --=--=--=--=--=--=--=--=--=--=--=--=-- Performing Laboratory: Bacteriology Report Performed By: [facility] [CLIA# [id number]] [address] [place] [address]
--- OUTSIDE RECORDS SUMMARY | 2022-01-19 09:19 | XMS_ITS ---
[facility] Encounter Summary Created on:December 06, 2021 Patient:LUCAS MEEK Sex:Male :1950 Author Organization [facility] Address [address] [place] [id number] Support Name Relationship Address Phone YUSRA MEEK Unavailable [address] [place] [address] YUSRA MEEK Unavailable [address] [place] [address] CLAY MOSLEY Unavailable Unavailable SJ SANTACRUZ Unavailable [...] MEDICARE MEDICARE PART Jun 18, PART A [id number] DO KALYANI PATIENT (WNR) (M) A 2016 13A 1 UGLAS MEDICARE MEDICARE PART Jun 18, PART A [id number] DO KALYANI PATIENT (WNR) (M) A 2017 VH81 2 LAS MEDICARE MEDICARE PART Jun 18, PART B [id number] DO KALYANI PATIENT (WNR) (M) B 2016 13A 1 UGLAS MEDICARE MEDICARE PART Jun 18, PART B [id number] DO KALYANI PATIENT (WNR) (M) B 2017 VH81 2 UGLAS UNITED MEDICARE MCR(Jun 18 [id number] Luz MEEK PATIENT HEALTHCARE ADVANTAGE NR) 2021 37 0 LAS [facility] (WNR) Selected Encounter This section includes the information on record at PA for the Encounter. Date/Time Encounter Type Encounter Description Reason Provider Source Dec 06, 2021 Inpatient Visit HOSPITALIZATION BANDAR TODD 04:44 PM E Encounter Template Text not used by [facility] Plan of Treatment: Future Appointments (+ 6 months) and Future Tests (+/- 45 days) The Plan of Treatment section includes future care activities for the patient from all [facility] hospital. This section includes future appointments and [...] NONE [place] [facility] Jan 06, 2022 02:00 PM [place] [facility] Jan 10, 2022 11:30 AM [facility]AT[facility] - MEDICINE [facility] Jan 24, 2022 08:00 AM [place] [facility] Feb 21, 2022 10:00 AM [place] [facility] Mar 21, [...] The data comes from all PA treatment [facility]. Test Date/Time Test Type Test Details Facility Name October 31, 2021 07:37 AM Consult Order [facility]EGD [facility] Cons Food Safety Manager's Choice November 15, 2021 10:37 AM Consult Order [facility] CARE-PODIATRY Cons Food Safety Manager's Choice Dec 06, 2021 12:52 PM [...] [place] OUTPAT[place] Cons [facility] Food Safety Manager's Choice Jan 15, 2022 10:08 PM Consult Order [facility] CARE-PALLIATIVE CARE Cons Food Safety Manager's Choice Lab Results: +/- 30 days [...] GLU,BUN,CREAT,LYTES,CA Speci men Type: PLASMA 06:43 AM [facility] Comment: Tests performed on SnappyTV (405) SN:[id number] Ordering Provid er: ISATU TODD Report Released Date/Time: Dec 11, 2021 07:42 AM Reporting Lab: [place] [facility] [address] [facility] [address] Performing Lab: [facility] [facility] [address] [facility] [address] UREA NITROGEN 9 7-25 SODIUM 137 135-145 POTASSIUM 3.8 3.5-5.0 CHLORIDE 105 100-110 CARBON DIOXIDE 26 20-30 ANION GAP 6 4-16 GLUCOSE 102 H 65-100 CREATININE 0.64 0.5-1.5 CALCIUM 8.1 L 8.5-10.5 eGFR(CKD-EPI 2020) >90.0 >60 Dec 15, 2021 06:[address] [facility] Sp ecimen Type: BLOOD No comment enter ed. Ordering Provid er: ISATU TODD Report Released Date/Time: Dec 10, 2021 07:22 AM Reporting Lab: [place] [facility] [address] [facility] [address] Performing Lab: [facility] [facility] [address] [facility] [address] WBC 5.7 4.5-11.0 RBC 4.22 L 4.23-5.66 [...] 2 NUE, FFPE See full report in Beeline Image display viewer/tab#LAB-Reference Ordering Provid er: NIURKA MILLER Report Released Date/Time: Dec 21, 2021 12:11 PM Reporting Lab: [facility] [address] [facility] [address] Performing Lab: [facility] CYTOGENETIC FISH([facility] comment Dec 14, 2021 [facility] P4 GLU,BUN,CREAT,LYTES,CA Speci men Type: PLASMA 06:27 AM [facility] Comment: Tests performed on SnappyTV (405) SN:[id number] Ordering Provid er: ISATU TODD Report Released Date/Time: Dec 11, 2021 07:42 AM Reporting [facility]: [facility] [address] [facility] [address] Per[facility]: [facility] [address] [facility] [address] UREA NITROGEN 10 7-25 SODIUM 137 135-145 [...] AM Reporting Lab: [facility] [address] [facility] [address] Performing Lab: [facility] [address] [facility] [address] WBC 6.0 4.5-11.0 RBC 4.29 4.23-5.66 HGB [...] [facility] Comment: Tests performed on SnappyTV (405 SN:[id number] Ordering Provid er: ISATU TODD Report Released Date/Time: Dec 11, 2021 07:42 AM Reporting Lab: [facility] [address] [facility] [address] Performing [facility]: [facility] [address] [facility] [address] UREA NITROGEN 12 7-25 SODIUM 136 135-145 [...] AM Reporting Lab: [facility] [address] [facility] [address] Performing Lab: [facility] [address] [facility] [address] WBC 5.6 4.5-11.0 RBC 4.28 4.23-5.66 HGB [...] [facility] Comment: Tests performed on SnappyTV (405) SN:[id number] Ordering Provid er: ISATU TODD Report Released Date/Time: Dec 11, 2021 07:42 AM Reporting Lab: [facility] [address] [facility] [address] Performing [facility]: [facility] [address] [facility] [address] UREA NITROGEN 11 7-25 SODIUM 139 135-145 [...] Reporting Lab: [facility] [address] [facility] [address] Performing Lab: [facility] [address] [facility] [address] WBC 5.5 4.5-11.0 RBC 4.37 4.23-5.66 HGB [...] 0.00 0-0 Dec 12, 2021 06:00 AM [place] z[place] [facility] MAGNESIUM Sp ecimen Type: PLASMA Comment: Testin g Performed on SnappyTV (405) SN:[id number] Ordering Provid er: ISATU TODD Report Released Date/Time: Dec 12, 2021 08:24 AM Reporting Lab: [place] zulilyT [facility] [address] [facility] [address] Performing Lab: [facility] [address] [facility] [address] MAGNESIUM 1.8 1.6-2.6 Dec 12, 2021 06:00 AM [place] z[facility]ily[place] [employer] PHOSPHORUS Sp ecimen Type: PLASMA Comment: Testin g Performed on SnappyTV (405) SN:[id number] Ordering Provid er: ISATU TODD Report Released Date/Time: Dec 12, 2021 08:24 AM Reporting Lab: [place] [facility] [address] [facility] [address] Performing Lab: [place] [facility] [facility] [address] [facility] [address] PHOSPHORUS 3.1 2.5-5.0 Dec 11, 2021 06:15 AM [place] [facility] [employer] ELECTROLYTES Sp ecimen Type: PLASMA Comment: Tests performed on SnappyTV (405) SN:[id number] Ordering Provid er: ISATU TODD Report Released Date/Time: Dec 10, 2021 07:22 AM Reporting Lab: [place] [facility] [address] [facility] [address] Performing Lab: [place] z[facility] [facility] [address] [facility] [address] SODIUM 137 135-145 POTASSIUM 4.3 3.5-5.0 CHLORIDE 108 100-110 CARBON DIOXIDE 20 20-30 ANION GAP 9 4-16 Dec 11, 2021 06:15 AM [place] [facility] CBC PROFILE Sp ecimen Type: BLOOD Comment: Result s checked Ordering Provid er: ISATU TODD Report Released Date/Time: Dec 10, 2021 07:22 AM Reporting Lab: [place] O[facility] [address] [facility] [address] Performing Lab: [place] OMEGAT [facility] [address] [facility] [address] WBC 5.8 4.5-11.0 RBC 4.37 4.23-5.66 HGB [...] 0.00 0-0 Dec 11, 2021 06:00 AM [place] [facility] PHOSPHORUS Sp ecimen Type: PLASMA Comment: Tests performed on SnappyTV 405 SN:[id number] Results checked Ordering Provid er: ISATU TODD Report Released Date/Time: Dec 11, 2021 07:44 AM Reporting Lab: [facility] [facility] [address] [facility] [address] Performing Lab: [place] OMEGAT [facility] [address] [facility] [address] PHOSPHORUS 3.0 2.5-5.0 Dec 10, 2021 08:05 AM [place] [facility] MAGNESIUM Sp ecimen Type: PLASMA Comment: [place] [id number] on Dec 10, 2021@08:31 Tests performed on SnappyTV (405) SN:[id number] Ordering Provid er: ISATU TODD Report Released Date/Time: Dec 10, 2021 07:22 AM Reporting Lab: [place] [facility] [address] [facility] [place] [address] Performing Lab: [place] [facility] [address] [facility] [place] [address] MAGNESIUM 1.7 1.6-2.6 Dec 10, 2021 08:05 AM [place] [facility] PHOSPHORUS Sp ecimen Type: PLASMA Comment: [place] [id number] on Dec 10, 2021@08:31 Tests performed on SnappyTV (405) SN:[id number] Ordering Provid er: ISATU TODD Report Released Date/Time: Dec 10, 2021 07:22 AM Reporting Lab: [place] [facility] [address] [facility] [place] [address] Performing Lab: [place] [facility] [address] [facility] [place] [address] PHOSPHORUS 1.8 L 2.5-5.0 Dec 10, 2021 08:05 AM [place] UREA NITROGEN Specimen Type: PLASMA [facility] Comment: [place] [id number] on Dec 10, 2021@08:31 Tests performed on SnappyTV (405) SN:[id number] Ordering Provid er: ISATU TODD Report Released Date/Time: Dec 10, 2021 07:22 AM Reporting Lab: [place] [facility] [address] [facility] [place] [address] Performing Lab: [place] [facility] [address] [facility] [place] [address] UREA NITROGEN 8 7-25 Dec 10, 2021 08:05 AM [place] [facility] GLUCOSE Sp ecimen Type: PLASMA Comment: [place] [id number] on Dec 10, 2021@08:31 Tests performed on SnappyTV (405) SN:[id number] Ordering Provid er: ISATU TODD Report Released Date/Time: Dec 10, 2021 07:22 AM Reporting Lab: [place] [facility] [address] [facility] [place] [address] Performing Lab: [place] [facility] [address] [facility] [address] GLUCOSE 144 H 65-100 Dec 10, 2021 08:05 AM [place] [facility] ELECTROLYTES Sp ecimen Type: PLASMA Comment: [place] [id number] on Dec 10, 2021@08:31 Tests performed on Pham RedMart (405) SN:[id number] Ordering Provid er: ISATU TODD Report Released Date/Time: Dec 10, 2021 07:22 AM Reporting Lab: [place] [facility] [address] [facility] [address] Performing Lab: [place] [facility] [address] [facility] [address] SODIUM 139 135-145 POTASSIUM 3.7 3.5-5.0 CHLORIDE 107 100-110 CARBON DIOXIDE 24 20-30 ANION GAP 8 4-16 Dec 10, 2021 08:05 AM [place] [facility] CALCIUM Sp ecimen Type: PLASMA Comment: [place] [id number] on Dec 10, 2021@08:31 Tests performed on Pham [employer] (405) SN:[id number] Ordering Provid er: ISATU TODD Report Released Date/Time: Dec 10, 2021 07:22 AM Reporting Lab: [place] [facility] [address] [facility] [address] Performing Lab: [place] [facility] [address] [facility] [address] CALCIUM 8.3 L 8.5-10.5 Dec 10, 2021 08:05 [place] CREATININE WITH eGFR Specime n Type: PLASMA AM [facility] PANEL Comment: [place] [id number] on Dec 10, 2021@08:31 Tests performed on Pham RedMart (405) SN:[id number] Ordering Provid er: ISTAU TODD Report Released Date/Time: Dec 10, 2021 07:22 AM Reporting Lab: [place] [facility] [address] [facility] [address] Performing Lab: [place] [facility] [address] [facility] [address] CREATININE 0.78 0.5-1.5 eGFR(CKD-EPI 2020) >90.0 >60 Dec 10, 2021 08:[address] [facility] CBC PROFILE Sp ecimen Type: BLOOD No comment enter ed. Ordering Provid er: ISATU TODD Report Released Date/Time: Dec 10, 2021 07:22 AM Reporting Lab: [facility] [address] [facility] [address] Performing Lab: [facility] [address] [facility] [address] WBC 7.0 4.5-11.0 RBC 4.54 4.23-5.66 HGB [...] 0.00 0-0 Dec 09, 2021 06:[address] [facility] MAGNESIUM Sp ecimen Type: PLASMA Comment: Tests performed on SnappyTV (331) SN:[id number] Ordering Provid er: ISATU TODD Report Released Date/Time: Dec 08, 2021 10:23 AM Reporting Lab: [facility] [address] [facility] [address] Performing Lab: [facility] [address] [facility] [address] MAGNESIUM 1.6 1.6-2.6 Dec 09, 2021 [facility] P4 GLU,BUN,CREAT,LYTES,CA Speci men Type: PLASMA 06:46 AM [facility] Comment: Tests performed on SnappyTV (405) SN:[id number] Ordering Provid er: ISATU TODD Report Released Date/Time: Dec 08, 2021 05:00 PM Reporting Lab: [facility] [address] [facility] [address] Performing Lab: [facility] [address] [facility] [address] UREA NITROGEN 6 L 7-25 SODIUM 134 [...] 2021 05:00 PM Reporting Lab: [facility] [address] [facility] [address] Performing Lab: [facility] [address] [facility] [address] WBC 7.1 4.5-11.0 RBC 4.40 4.23-5.66 HGB [...] 0.00 0-0 Dec 08, 2021 06:39 AM [employer] [place] [facility] MAGNESIUM Sp ecimen Type: PLASMA Comment: Testin g Performed on Pham [employer] (405) SN:[id number] Ordering Provid er: ISATU TODD Report Released Date/Time: Dec 07, 2021 10:32 AM Reporting Lab: [facility] [address] [facility] [address] Performing Lab: [facility] [address] [facility] [address] MAGNESIUM 1.5 L 1.6-2.6 Dec 08, 2021 [place] [employer] [place] P4 GLU,BUN,CREAT,LYTES,CA Speci men Type: PLASMA 06:39 AM [facility] Comment: Testin g Performed on SnappyTV (405) SN:[id number] Ordering Provid er: ISATU TODD Report Released Date/Time: Dec 07, 2021 10:32 AM Reporting Lab: [employer] [place] [facility] [address] [facility] [address] Performing Lab: [facility] [address] [facility] [address] UREA NITROGEN 6 L 7-25 SODIUM 136 135-145 POTASSIUM 3.3 L 3.5-5.0 CHLORIDE 104 100-110 CARBON DIOXIDE 22 20-30 ANION GAP 10 4-16 GLUCOSE 133 H 65-100 CREATININE 0.76 0.5-1.5 CALCIUM 8.4 L 8.5-10.5 eGFR(CKD-EPI 2020) >90.0 >60 Dec 08, 2021 06:39 AM [place] [employer] [place] [facility] CBC PROFILE Sp ecimen Type: BLOOD No comment enter ed. Ordering Provid er: ISATU TODD Report Released Date/Time: Dec 07, 2021 10:32 AM Reporting Lab: [facility] [address] [facility] [address] Performing Lab: [facility] [address] [facility] [address] WBC 8.4 4.5-11.0 RBC 4.75 4.23-5.66 HGB [...] ABSOLUTE NRBC 0.00 0-0 Dec 07, 2021 [facility] P4 GLU,BUN,CREAT,LYTES,CA Speci men Type: PLASMA 06:42 AM [facility] Comment: Tests performed on SnappyTV (405) SN:[id number] Ordering Provid er: PORFIRIO WALTERS Report Released Date/Time: Dec 06, 2021 06:57 PM Reporting Lab: [facility] [address] [facility] [address] Performing Lab: [facility] [address] [facility] [address] UREA NITROGEN 9 7-25 SODIUM 135 135-145 POTASSIUM 3.5 3.5-5.0 CHLORIDE 103 100-110 CARBON DIOXIDE 22 20-30 ANION GAP 10 4-16 GLUCOSE 92 65-100 CREATININE 0.73 0.5-1.5 CALCIUM 8.0 L 8.5-10.5 eGFR(CKD-EPI 2020) >90.0 >60 Dec 07, 2021 06:42 [place] LIVER PROFILE Specimen Typ e: PLASMA [facility] Comment: Tests performed on [employer] (405) SN:[id number] Ordering Provid er: PORFIRIO WALTERS Report Released Date/Time: Dec 06, 2021 06:57 PM Reporting Lab: [facility] [address] [facility] [address] Performing Lab: [facility] [address] [facility] [address] PROTEIN, TOTAL 5.7 L 6.0-8.5 ALBUMIN 2.4 L 3.2-5.0 BILIRUBIN, TOTAL 0.4 0.2-1.2 ALKALINE PHOSPHATASE 109 40-150 ALT(SGPT) 10 7-52 AST(SGOT) 15 5-34 FIB-4 SCORE 1.92 <2.67 Dec 07, 2021 06:42 AM [facility] CBC PROFILE Specimen Type: BLOOD [facility] No comment enter ed. Ordering Provid er: PORFIRIO WALTERS Report Released Date/Time: Dec 06, 2021 06:57 PM Reporting Lab: [facility] [address] [facility] [address] Performing Lab: [facility] [address] [facility] [address] WBC 5.7 4.5-11.0 RBC 4.15 L 4.23-5.66 [...] [facility] %) AUTOMATED Comment: Tests performed on SnappyTV (405) SN:[id number] Ordering Provid er: ISATU TODD Report Released Date/Time: Dec 07, 2021 10:28 AM Reporting Lab: [place] [facility] [address] [facility] [address] Performing Lab: [place] [facility] [address] [facility] [address] RETICULOCYTES (%) AUTOMATED 1.23 0. 6-2.0 RETICULOCYTES (ABS) AUTOMATED 0.052 0.030-0.090 Dec 06, 2021 09:45 [place] MRSA SURVL NARES Specimen Ty pe: NARES PM [facility] DNA No comment enter ed. Ordering Provid er: ALVARO VARGHESE Report Released Date/Time: Dec 07, 2021 02:20 AM Reporting Lab: [place] [facility] [address] [facility] [address] Performing Lab: [place] [facility] [address] [facility] [address] MRSA SURVL NARES DNA NEGATIVE NEGATIVE Dec 06, 2021 06:00 [place] URINALYSIS W/REFLEX TO Speci men Type: URINE PM [facility] CULTURE No comment enter ed. Ordering Provid er: JELANI SÁNCHEZ Report Released Date/Time: Dec 06, 2021 11:57 AM Reporting Lab: [place] [facility] [address] [facility] [address] Performing Lab: [place] [facility] [address] [facility] [address] URINE COLOR Arlin YELLOW SPECIFIC GRAVITY 1.029 [...] 21, R[place] VARIANT Comment: https://www.cdc.gov/coronavirus/2019-ncov/cases-updates/variant- surveillance/variant-info.html The Innometrix InciSeq SARS CoV 2 Recyclebank Research Assay-GX is a next-generation sequencing (NGS) assa 2021 [facility] SEQUENCING y that determine s the complete genome sequence of the SARS-CoV-2 virus. The assay contains variant-tolerant primers to broaden and improve the coverage for variant detection and increase the sensitivity 12:00 [facility] PNL(WH) of the panel to enable detection from lower viral titer samples. The assay is run on the Kicksend Sequencer, which performs automated library preparation, sequencing, analysis, and reporting. PM The sequence an alysis includes determination of viral phylogenetic lineage by comparison to the reference strain Wuhan-Hu-1, GenBank: [id number]. Sequence determination may not be possible owing [...] performance characteristics determined by the [facility] Molecular Diagnostics Laboratory, which is certified under the Clinical Laboratory Improveme nt Amendments (C MARCO) as qualified to perform high complexity clinical laboratory testing. This test is validated for clinical use at [facility] and should not be regarded as investigational or for research. The FDA does not require this test to go through premarket FDA review, and therefore it has not been cleared or approved by the FDA. This report was reviewed and approved by the on-service pathologist. Ordering Provid er: JELANI SÁNCHEZ Report Released Date/Time: Dec 06, 2021 01:13 PM Reporting Lab: [facility] [address] [facility] [address] Performing Lab: [facility] [address] [facility] [address] SARS-CoV-2 CLADE() 22C (OMICRON) SARS-CoV-2 LINEAGE() BA.2.12.1 Dec 06, 2021 12:00 [facility] COVID-19 AG SCREEN Specimen Type: NASAL CAVITY PM [facility] PANEL BINAX(405) Comment: Testi ng Performed By: Mike Briscoe Ordering Provid er: JELANI SÁNCHEZ Report Released Date/Time: Dec 08, 2021 08:23 AM Reporting Lab: [facility] [address] [facility] [address] Performing Lab: [facility] [address] [facility] [address] COVID-19 AG SCRN(wrj BINAX) POSITIVE HH NE G Dec 06, 2021 12:[address] [facility] LIVER PROFILE Sp ecimen Type: PLASMA Comment: Testin g Performed on [employer] (405) SN:[id number] Ordering Provid er: JELANI SÁNCHEZ Report Released Date/Time: Dec 06, 2021 11:57 AM Reporting Lab: [facility] [address] [facility] [address] Performing Lab: [facility] [address] [facility] [address] PROTEIN, TOTAL 6.6 6.0-8.5 ALBUMIN 2.8 L 3.2-5.0 BILIRUBIN, TOTAL 0.6 0.2-1.2 ALKALINE PHOSPHATASE 134 40-150 ALT(SGPT) 13 7-52 AST(SGOT) 18 5-34 FIB-4 SCORE 1.94 <2.67 Dec 06, 2021 12:00 PM [facility] Sp ecimen Type: PLASMA Comment: Tests performed on [employer] (405) SN:[id number] Ordering Provid er: JELANI SÁNCHEZ Report Released Date/Time: Dec 06, 2021 11:57 AM Reporting Lab: [facility] [address] [facility] [address] Performing Lab: [place] [facility] [address] [facility] [address] TROPONIN II 0.03 0.00-0.29 Dec 06, 2021 [place] P4 GLU,BUN,CREAT,LYTES,CA Speci men Type: PLASMA 12:00 PM [facility] Comment: Testin g Performed on [employer] (405) SN:[id number] Ordering Provid er: JELANI SÁNCHEZ Report Released Date/Time: Dec 06, 2021 11:57 AM Reporting Lab: [facility] [place] T [facility] [address] [facility] [address] Performing Lab: [facility] [address] [facility] [address] UREA NITROGEN 13 7-25 SODIUM 138 135-145 POTASSIUM 3.8 3.5-5.0 CHLORIDE 103 100-110 CARBON DIOXIDE 23 20-30 ANION GAP 12 4-16 GLUCOSE 105 H 65-100 CREATININE 0.90 0.5-1.5 CALCIUM 8.7 8.5-10.5 eGFR(CKD-EPI 2020) >90.0 >60 Dec 06, 2021 12:[address] [facility] BNP(P[facility] Sp ecimen Type: PLASMA Comment: Tests performed on [employer] (405) [id number] Ordering Provid er: JELANI SÁNCHEZ Report Released Date/Time: Dec 06, 2021 11:57 AM Reporting Lab: [facility] [address] [facility] [address] Performing Lab: [facility] [address] [facility] [address] BNP(P) 224.8 H 10-100 Dec 06, 2021 [place] COVID-19+FLU/RSV DIAGNOSTIC Spe cimen Type: NASOPHARYNX 12:00 PM [facility] PANEL(405) Comment: Tests performed on [employer] (405) Critical results called to and read back by: ALESHIA WILKINSON RN 12/06/21 @ 1312 Ordering Provid er: JELANI SÁNCHEZ Report Released Date/Time: Dec 06, 2021 11:57 AM Reporting Lab: [facility] [address] [facility] [address] Performing Lab: [facility] [address] [facility] [address] FLU A(PCR) NEGATIVE NEGATIVE FLU B(PCR) NEGATIVE NEGATIVE RSV(PCR) NEGATIVE NEGATIVE COVID-19([id number]) DETECTED HH NO T DETECTED Dec 06, 2021 12:00 PM [facility] CBC PROFILE Sp ecimen Type: BLOOD No comment enter ed. Ordering Provid er: JELANI SÁNCHEZ Report Released Date/Time: Dec 06, 2021 11:57 AM Reporting Lab: [facility] [facility] [address] [facility] [address] Performing Lab: [facility] [address] [facility] [address] WBC 7.2 4.5-11.0 RBC 4.86 4.23-5.66 HGB [...] Rate Mass Index Tom 21, 233.7 32 [place] 2021 09:43 lb [facility] Dec 06, 98.2 F 91 134/59 16 /min 98 % 0 WHITE 2021 09:37 /min mm[Hg] [facility] Dec 06, 114 129/69 21 /min 97 % WHITE 2021 06:00 /min mm[Hg] [facility] Dec 06, 99 139/68 24 /min 96 % WHITE 2021 05:30 /min mm[Hg] [facility] Dec 06, 98.8 F 110 120/68 23 /min 94 % 0 WHITE 2021 04:16 /min mm[Hg] [facility] Social History: Smoking [...] place. Date/Time Smoking Status/Tobacco Use Comment [facility] Apr 01, 2020 01:16 PM [...] TOBACCO USE 1-7 YEARS AGO [facility] May 01, 2016 07:26 PM QUIT TOBACCO USE IN PAST YEAR [facility] May 01, 2016 03:11 PM QUIT TOBACCO USE IN PAST YEAR [facility] May 01, 2016 11:19 AM QUIT TOBACCO USE IN PAST YEAR [facility] Mar 16, 2016 12:50 PM V1-PT DECLINES REF TO TOBACCO [facility] CESS PRGM [...] W/WO CONTRAST: MARYELLEN LONG LUCAS LARES N [id number] -1950 [facility] Exm Date: DEC 13, 2021@12:57 Req Phys: ISATU TODD Loc: OP Unknown/0 12-15-2021@13:20 Img Loc: MRI IMAGING (OOS) Service[facility] (Case [id number] COMPLETE) MRI ABDOMEN W/WO CONTRAST (M RI Detailed) CPT:96367 Reason for Study: further characterization of a [...] new lyphadenopathy REQUESTING MD: Isatu Todd PAGER: [phone] PHONE: [phone] Weight: 232.2 lb [105.32 kg] (12/12/2021 05:00) [...] patient will need to arrange for a diesel 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 to take him/her home after [...] 15, 2021 Date Verified: DEC 15, 2021 Electric Truck Driver E-Sig:/ES/MARYELLEN LONG Report: MRI ABDOMEN W/WO [...] MALIGNANCY Primary Interpreting Staff: Staff AMELIA THOMAS (Electric Truck Driver) / Dec 10, 2021 09:[address] ABDOMEN & PELVIS: RADIOLOGY,OUTSIDE [facility] [place] LUCAS MEEK N [id number] -1950 M SERVICE [facility] Exm Date: DEC 10, 2021@09:30 Req Phys: ISATU TODD Loc: 1S MED/12-10@10:57 Img Loc: CT SCAN (OOS) Service: [facility] (Case [id number] COMPLETE) CT ABD & PELVIS WITHOUT CONT RAST (CT Detailed) CPT:75109 Reason for Study: 71 yo male with [...] INDEX - NO HEIGHTS FOUND Pager number: [phone] STAT orders MUST be call ed to RADIOLOGY [phone] to speak to the appropriate crystal growing technician. Report Status: Verified Date Reported: DEC 10, 2021 Date Verified: DEC 10, 2021 Electric Truck Driver E-Sig: Report: EXAM: CT abdomen and [...] ph nodes. READING PHYSICIAN: Ramone Munoz D.O. [phone] 12/10/2021 10:55 EDT [facility] [phone] (For Medical Practitioner Use Only ) [address] [facility] [address] [facility] [address], [address] [place] [address] Attention Patients / Veterans: If you have ques tions or concerns about these test results, please contact your o rdering provider or primary care team. Primary Diagnostic Code: SIGNIFICANT ABNORMALIT Y, ATTN NEEDED Primary Interpreting Staff: RADIOLOGY,OUTSIDE SERVICE, Staff Physician / Dec 09, 2021 07:34 AM BASW (MODIFIED): JESSIE CHENEY [facility] [place] LUCAS MEEK N [id number] -1950 M [facility] Exm Date: DEC 09, 2021@07:34 Req Phys: ISATU TODD Loc: 1S MED/12-09@11:26 Img Loc: XRAY (OOS) Service: [facility] (Case [id number] COMPLETE) BASW (MODIFIED) (RAD Detaile d) CPT:28811 Contrast Media : Barium Reason for Study: dysphagia ?esophageal spasm Clinical History: Report Status: Verified Date Reported: DEC 09, 2021 Date Verified: DEC 09, 2021 Electric Truck Driver E-Sig:/ES/JESSIE CHENEY Report: BASW (MODIFIED) , [...] REQUIRED Primary Interpreting Staff: JESSIE CHENEY, RADIOLOGIST (Electric Truck Driver) /TLC Dec 06, 2021 12:[address] CHEST (INCLUDES ADRENALS): [facility]UC[facility]EEK N [id number] -1950 [facility] Exm Date: DEC 06, 2021@12:59 Req Phys: JELANI SÁNCHEZ Loc: [facility] ED DAYS M 1RD (Req'g Loc) Img Loc: CT SCAN (OOS) Service: Unknown (Case [id number] COMPLETE) CT THORAX W/O CONT (CT Detai led) CPT:69950 Reason for Study: Opacification right chest Clinical History: No contrast allergy BUN: 13 (12/06/21 12:00) CREATI: 0.90 (12/06/21 12:00) eGFR 05/16/21 09:43 52 L Weight: 232.6 lb [105.51 kg] (12/06/2021 11:40) BODY MASS INDEX - NO HEIGHTS FOUND Pager number: [phone] STAT orders MUST be called t o RADIOLOGY [phone] to speak to the appropriate crystal growing technician. Indications - Other: Opacification right chest, covid positive, lung cancer histo Report Status: Verified Date Reported: DEC 06, 2021 Date Verified: DEC 06, 2021 Electric Truck Driver E-Sig:/ES/JESSIE CHENEY Report: CT THORAX W/O [...] REQUIRED Primary Interpreting Staff: JESSIE CHENEY, RADIOLOGIST (Electric Truck Driver) Primary Interpreting Resident: PRINCE CHAMPION, Resident /ABBI Dec 06, 2021 11:58 AM CHEST SINGLE VIEW: JESSIE CHENEY LUCAS MEEK N [id number] -1950 M [facility] Exm Date: DEC 06, 2021@11:58 Req Phys: JELANI SÁNCHEZ Pat Loc: [facility] ED DAYS M 1RD (Req'g Loc) Img Loc: XRAY (OOS) Service: Unknown (Case [id number] COMPLETE) CHEST SINGLE VIEW (RAD Detai led) CPT:91734 Proc Modifiers : PORTABLE EXAM Reason for Study: SOB, home covid test positive Clinical History: Report Status: Verified Date Reported: DEC 06, 2021 Date Verified: DEC 06, 2021 Electric Truck Driver E-Sig:/ES/JESSIE CHENEY Report: Exam type: Chest [...] REQUIRED Primary Interpreting Staff: JESSIE CHENEY, RADIOLOGIST (Electric Truck Driver) /TLC Pathology Reports: +/- 30 days [...] [place] LOCAL TITLE: LR SURGICAL PATHOLOGY REPORT [facility] STANDARD TITLE: PATHOLOGY REPORT DATE OF NOTE: JAN 03, 2022@10:28:01 ENTRY DATE: JAN 03, 2022@10:28:01 AUTHOR: NIURKA MILLER EXP COSIGNER: URGENCY: STATUS: COMPLETED $APHDR Reporting Lab: [facility] [CLIA# [id number]] [address] [place] [address] - - - - - - [...] automatically d ocumented from SURGERY package case #[id number] Field (#32) PRINCIPAL PRE-OP DIAGNOSIS, (#.72) OTHER [...] automatically d ocumented from SURGERY package case #[id number] Field (#34) PRINCIPAL POST-OP DIAG, (#.74) OTHER [...] Label: Lucas Meek Paperwork: Lucas Meek Cassette: [id number];..;KALYANI;.;405;[phone] Specimen is labeled: ES bx Received in formalin are several pieces of pale boyd and brown tissue, 1.2 x 0.7 cm in aggregate. Submitted entirely in 1 cassette [id number];..;KALYANI;.;405;[id number] SAW 12/15/2021 Microscopic exam: *+* MODIFIED REPORT *+* (Last modified: JAN 03, 2022@09:30:20 typed by NIURKA WADDELL) DIAGNOSIS: A. 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 Kendell long. TIARA Coombs was notified on 12/21/21. Modified on 01/03/22 to include report from [facility] stating that tumor is NEGATIVE for her2/ matheus amplification. The attending pathologist who signature mansoor ears on this report has reviewed all diagnostic slides and has edited t he gross and/or microscopic portion of this report in rendering the final pathologic diagnosis. [address] [address] CPT: 84608 /emely/ NIURKA Yeung MD Signed Jan 03, 2022@10:28 Performing Laboratory: Surgical Pathology Report Performed By: [facility] MONTO[facility] [CLIA# [id number]] [address] [place] [address] $FTR - - - - - [...] - - - - - - - KALYANILUCAS Lei STANDARD FORM 515 ID:[id number] SEX:M :1950 AGE: 71 LOC: SDM END PCP: Isatu Todd /emely/ NIURKA MILLER Staff Signed: 01/03/2022 10:28 Dec 21, 2021 11:46 AM LR SURGICAL PATHOLOGY REPORT: STEFANY MILLER [facility] LOCAL TITLE: LR SURGICAL PATHOLOGY REPORT [facility] STANDARD TITLE: PATHOLOGY REPORT DATE OF NOTE: DEC 21, 2021@11:46:59 ENTRY DATE: DEC 21, 2021@11:46:59 AUTHOR: NIURKA MILLER EXP COSIGNER: URGENCY: STATUS: COMPLETED $APHDR Reporting Lab: [facility] [CLIA# [id number]] [address] [place] [address] - - - - - - [...] automatically d ocumented from SURGERY package case #[id number] Field (#32) PRINCIPAL PRE-OP DIAGNOSIS, (#.72) OTHER [...] automatically d ocumented from SURGERY package case #[id number] Field (#34) PRINCIPAL POST-OP DIAG, (#.74) OTHER [...] Label: Lucas Meek Paperwork: Lucas Meek Cassette: [id number];..;KALYANI;.;405;[phone] Specimen is labeled: ES bx Received in formalin are several pieces of pale boyd and brown tissue, 1.2 x 0.7 cm in aggregate. Submitted entirely in 1 cassette [id number];..;KALYANI;.;405;[id number] SAW 12/15/2021 Microscopic exam: DIAGNOSIS: A. 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 Kendell long. TIARA Coombs was notified on 12/21/21. The attending pathologist who signature mansoor ears on this report has reviewed all diagnostic slides and has edited t he gross and/or microscopic portion of this report in rendering the final pathologic diagnosis. [address] [address] CPT: 31402 /emely/ NIURKA Yeung MD Signed Dec 21, 2021@11:46 Performing Laboratory: Surgical Pathology Report Performed By: [facility] [place] [facility] [CLIA# [id number]] [address] [place] [address] $FTR - - - - - [...] - - LUCAS MEEK STANDARD FORM 515 ID:[id number] SEX:M :1950 AGE: 71 LOC: [facility] END PCP: Isatu Todd /emely/ NIURKA Yeung MD Signed: 12/21/2021 11:46 Dec 06, 2021 03:30 PM LR MICROBIOLOGY [facility]: [facility] Reporting Lab: [facility] [CLIA# [id number]] [address] [place] [address] Accession [UID]: [id number] [[id number]] Receiv ed: Dec 06, 2021@16:14 Collection sample: BLOOD CUL T BOTTLE(NIRMAL/AERO)Collection date: Dec 06, 2021 15:30 Site/Specimen: BLOOD Provider: JELANI SÁNCHEZ Comment on specimen: LAC Test(s) ordered: BLOOD CULTURE ANAEROBI C....... completed: Dec 12, 2021 06:18 * BACTERIOLOGY FINAL REPORT => Dec 12, 2021 06:1 8 TECH CODE: [id number] Bacteriology Remark(s): NO GROWTH IN 5 DAYS =--=--=--=--=--=--=--=--=--=--=--=--=--= --=--=--=--=--=--=--=--=--=--=--=--=-- Performing Laboratory: Bacteriology Report Performed By: [facility] [CLIA# [id number]] [address] [place] [address] Dec 06, 2021 03:30 PM LR MICROBIOLOGY REPORT: [facility] Reporting Lab: [facility] [CLIA# [id number]] [address] [place] [address] Accession [UID]: [id number] [[id number]] Receiv ed: Dec 06, 2021@16:14 Collection sample: BLOOD CUL T BOTTLE(NIRMAL/AERO)Collection date: Dec 06, 2021 15:30 Site/Specimen: BLOOD Provider: JELANI SÁNCHEZ Comment on specimen: LAC Test(s) ordered: BLOOD CULTURE AEROBIC. ........ completed: Dec 12, 2021 06:17 * BACTERIOLOGY FINAL REPORT => Dec 12, 2021 06:1 7 TECH CODE: [id number] Bacteriology Remark(s): NO GROWTH IN 5 DAYS =--=--=--=--=--=--=--=--=--=--=--=--=--= --=--=--=--=--=--=--=--=--=--=--=--=-- Performing Laboratory: Bacteriology Report Performed By: [facility] [CLIA# [id number]] [address] [place] [address]
--- OUTSIDE RECORDS SUMMARY | 2022-01-19 09:20 | XMS_ITS ---
DAILY HOSPITALIZATION DATA [facility] Encounter Summary Created on:December 12, 2021 Patient:LUCAS MEEK Sex:Male :1950 Author Organization [facility] Address [address] [place] [id number] Support Name Relationship Address Phone YUSRA MEEK Unavailable [address] [place] [address] YUSRA MEEK Unavailable [address] [place] [facility] [place] [address] CLAY MOSLEY Unavailable Unavailable SJ SANTACRUZ Unavailable [...] MEDICARE MEDICARE PART Jun 18, PART A [id number] DO KALYANI PATIENT (WNR) (M) A 2016 13A 1 UGLAS MEDICARE MEDICARE PART Jun 18, PART B [id number] DO KALYANI PATIENT (WNR) (M) B 2016 13A 1 [place]AS MEDICARE MEDICARE PART Jun 18, PART A [id number] KALYANIDO PATIENT (WNR) (M) A 2017 VH81 2 [place]AS MEDICARE MEDICARE PART Jun 18, PART B [id number] DO KALYANI PATIENT (WNR) (M) B 2017 VH81 2 U[place]AS UNITED MEDICARE MCR(Jun 18 [id number] Luz MEEK PATIENT HEALTHCARE ADVANTAGE NR) 2021 37 0 [facility] (WNR) Selected Encounter This section includes the information on [place] at [place] for the Encounter. Date/Time Encounter Type Encounter Description Reason Provider Source Dec 12, 2021 05:26 Inpatient Visit DAILY HOSPITALIZATION DATA AM [facility] Encounter Template Text not used by [...] AM AMBULATORY - NONE [place] [facility] Jan 06, 2022 02:00 PM [place] [facility] Jan 10, 2022 11:30 AM AMBULATORY - MEDICINE [facility] Jan 24, 2022 08:00 [place] [facility] Feb 21, 2022 10:00 AM [place]UL[place] [facility] Mar 21, 2022 10:30 AM AMBULATORY - [...] The data comes from all [place] treatment [facility]. Test Date/Time Test Type Test Details Facility Name October 31, 2021 07:37 AM Consult Order [facility]ITY [facility]ARE-EGD [facility] Cons Electrical Timing Device Calibrator's Choice November 15, 2021 10:37 AM Consult Order [facility] CARE-PODIATRY Cons Electrical Timing Device Calibrator's Choice Dec 06, 2021 12:52 PM Pharmacy [...] [facility] Electrical Timing Device Calibrator's Choice Jan 15, 2022 10:08 PM Consult Order [facility] CARE-PALLIATIVE CARE Cons Electrical Timing Device Calibrator's Choice Lab Results: +/- 30 days of [...] Reference Range Comment Dec 15, 2021 [place] P4 GLU,BUN,CREAT,LYTES,CA Speci men Type: PLASMA 06:43 AM [facility] Comment: Tests performed on [employer] (405) SN:[id number] Ordering Provid er: ISATU TODD Report Released Date/Time: Dec 11, 2021 07:42 AM Reporting Lab: [facility] T [facility] [address] [facility] [address] Performing Lab: [facility] [address] [facility] [address] UREA NITROGEN 9 7-25 SODIUM 137 135-145 [...] [facility] [address] [facility] [address] Performing Lab: [facility] [address] [facility] [address] WBC 5.7 4.5-11.0 RBC 4.22 L 4.23-5.66 [...] ABSOLUTE NRBC 0.00 0-0 Dec 14, 2021 [facility] CYTOGENETIC Specimen Type: ESOPHAGUS 02:59 PM VAOC FISH([facility]) Comment: ~For T est: CYTOGENETIC FISH([facility]) ~FISH HER 2 NUE, FFPE See full report in Phagenesis Image display viewer/tab#LAB-Reference Ordering Provid er: NIURKA MILLER Report Released Date/Time: Dec 21, 2021 12:11 PM Reporting Lab: [facility] [address] [facility] [address] Performing Lab: [facility] CYTOGENETIC FISH([facility]) comment Dec 14, 2021 [facility] P4 GLU,BUN,CREAT,LYTES,CA Speci men Type: PLASMA 06:27 AM [facility] Comment: Tests performed on [employer] (405) SN:[id number] Ordering Provid er: ISATU TODD Report Released Date/Time: Dec 11, 2021 07:42 AM Reporting Lab: [facility] [address] [facility] [address] Performing Lab: [facility] [address] [facility] [address] UREA NITROGEN 10 7-25 SODIUM 137 135-145 [...] Reporting Lab: [facility] [address] [facility] [address] Performing Lab: [facility] [address] [facility] [address] WBC 6.0 4.5-11.0 RBC 4.29 4.23-5.66 HGB [...] ABSOLUTE NRBC 0.00 0-0 Dec 13, 2021 [facility] P4 GLU,BUN,CREAT,LYTES,CA Speci men Type: PLASMA 06:34 AM [facility] Comment: Tests performed on [employer] (405) SN:[id number] Ordering Provid er: ISATU TODD Report Released Date/Time: Dec 11, 2021 07:42 AM Reporting Lab: [facility] [address] [facility] [address] Per[facility]: [facility] [address] [facility] [address] UREA NITROGEN 12 7-25 SODIUM 136 135-145 [...] Reporting Lab: [facility] [address] [facility] [address] Performing Lab: [facility] [address] [facility] [address] WBC 5.6 4.5-11.0 RBC 4.28 4.23-5.66 HGB [...] ABSOLUTE NRBC 0.00 0-0 Dec 12, 2021 [facility] P4 GLU,BUN,CREAT,LYTES,CA Speci men Type: PLASMA 06:21 AM [facility] Comment: Tests performed on [employer] (405) SN:[id number] Ordering Provid er: ISATU TODD Report Released Date/Time: Dec 11, 2021 07:42 AM Reporting Lab: [facility] [address] [facility] [address] Performing [facility]: [facility] [address] [facility] [address] UREA NITROGEN 11 7-25 SODIUM 139 135-145 [...] ILMROC [address] [facility] [address] Performing Lab: [facility] [address] [facility] [address] WBC 5.5 4.5-11.0 RBC 4.37 4.23-5.66 HGB [...] 0.00 0-0 Dec 12, 2021 06:00 AM AVA SolarT [facility] MAGNESIUM Sp ecimen Type: PLASMA Comment: Testin g Performed on [employer] (405) SN:[id number] Ordering Provid er: ISATU TODD Report Released Date/Time: Dec 12, 2021 08:24 AM Reporting Lab: [place] ZetrOZT [facility] [address] [facility] [address] Performing Lab: [employer] [place] ZetrOZT [employer] [address] [facility] [address] MAGNESIUM 1.8 1.6-2.6 Dec 12, 2021 06:00 AM AVA SolarT [employer] PHOSPHORUS Sp ecimen Type: PLASMA Comment: Testin g Performed on [employer] (405) SN:[id number] Ordering Provid er: ISATU TODD Report Released Date/Time: Dec 12, 2021 08:24 AM Reporting Lab: [place] ZetrOZT [facility] [address] [facility] [address] Performing Lab: [place] ZetrOZT [employer] [address] [facility] [address] PHOSPHORUS 3.1 2.5-5.0 Dec 11, 2021 06:15 AM [employer] [place] ZetrOZT [employer] ELECTROLYTES Sp ecimen Type: PLASMA Comment: Tests performed on [employer] (405) SN:[id number] Ordering Provid er: ISATU TODD Report Released Date/Time: Dec 10, 2021 07:22 AM Reporting Lab: [place] ZetrOZT [facility] [address] [facility] [address] Performing Lab: [place] ZetrOZT [facility] [address] [facility] [address] SODIUM 137 135-145 POTASSIUM 4.3 3.5-5.0 CHLORIDE 108 100-110 CARBON DIOXIDE 20 20-30 ANION GAP 9 4-16 Dec 11, 2021 06:15 AM [place] [employer] [facility] CBC PROFILE Sp ecimen Type: BLOOD Comment: Result s checked Ordering Provid er: ISATU TODD Report Released Date/Time: Dec 10, 2021 07:22 AM Reporting Lab: [place] OMEGAT [facility] [address] [facility] [address] Performing Lab: [place] OMEGAT [facility] [address] [facility] [address] WBC 5.8 4.5-11.0 RBC 4.37 4.23-5.66 HGB [...] ecimen Type: PLASMA Comment: Tests performed on [employer] (487) SN:[id number] Results checked Ordering Provid er: ISATU TODD Report Released Date/Time: Dec 11, 2021 07:44 AM Reporting Lab: [facility] DU[place] [facility] [address] [facility] [address] Performing Lab: [place] OMEGAT ILMROC [address] [facility] [address] PHOSPHORUS 3.0 2.5-5.0 Dec 10, 2021 08:05 AM [place] [facility] MAGNESIUM Sp ecimen Type: PLASMA Comment: [place] [id number] on Dec 10, 2021@08:31 Tests performed on [employer] (405) SN:[id number] Ordering Provid er: ISATU TODD Report Released Date/Time: Dec 10, 2021 07:22 AM Reporting Lab: [place] [facility] [address] [place] [facility] [place] [address] Performing Lab: [place] [facility] [address] [place] [facility] [place] [address] MAGNESIUM 1.7 1.6-2.6 Dec 10, 2021 08:05 AM [place] [facility] PHOSPHORUS Sp ecimen Type: PLASMA Comment: [place] [id number] on Dec 10, 2021@08:31 Tests performed on [employer] (405) SN:[id number] Ordering Provid er: ISATU TODD Report Released Date/Time: Dec 10, 2021 07:22 AM Reporting Lab: [place] [facility] [address] [place] [facility] [place] [address] Performing Lab: [place] [facility] [address] [place] [facility] [place] [address] PHOSPHORUS 1.8 L 2.5-5.0 Dec 10, 2021 08:05 AM [place] UREA NITROGEN Specimen Type: PLASMA [facility] Comment: [place] [id number] on Dec 10, 2021@08:31 Tests performed on [employer] (405) SN:[id number] Ordering Provid er: ISATU TODD Report Released Date/Time: Dec 10, 2021 07:22 AM Reporting Lab: [place] [facility] [address] [place] [facility] [place] [address] Performing Lab: [place] [facility] [address] [place] [facility] [place] [address] UREA NITROGEN 8 7-25 Dec 10, 2021 08:05 AM [place] [facility] CALCIUM Sp ecimen Type: PLASMA Comment: [place] [id number] on Dec 10, 2021@08:31 Tests performed on [employer] (405) SN:[id number] Ordering Provid er: ISATU TODD Report Released Date/Time: Dec 10, 2021 07:22 AM Reporting Lab: [place] [facility] [address] [facility] [address] Performing Lab: [place] [facility] [address] [facility] [address] CALCIUM 8.3 L 8.5-10.5 Dec 10, 2021 08:05 AM [place] [facility] GLUCOSE Sp ecimen Type: PLASMA Comment: [place] [id number] on Dec 10, 2021@08:31 Tests performed on [employer] (405) SN:[id number] Ordering Provid er: ISATU TODD Report Released Date/Time: Dec 10, 2021 07:22 AM Reporting Lab: [place] [facility] [address] [facility] [address] Performing Lab: [place] [facility] [address] [facility] [address] GLUCOSE 144 H 65-100 Dec 10, 2021 08:05 AM [place] [facility] ELECTROLYTES Sp ecimen Type: PLASMA Comment: [place] [id number] on Dec 10, 2021@08:31 Tests performed on [employer] (405) SN:[id number] Ordering Provid er: ISATU TODD Report Released Date/Time: Dec 10, 2021 07:22 AM Reporting Lab: [place] [facility] [address] [facility] [address] Performing Lab: [place] [facility] [address] [facility] [address] SODIUM 139 135-145 POTASSIUM 3.7 3.5-5.0 CHLORIDE 107 100-110 CARBON DIOXIDE 24 20-30 ANION GAP 8 4-16 Dec 10, 2021 08:05 [place] CREATININE WITH eGFR Specime n Type: PLASMA AM [facility] PANEL Comment: [place] [id number] on Dec 10, 2021@08:31 Tests performed on [employer] (405) SN:[id number] Ordering Provid er: ISATU TODD Report Released Date/Time: Dec 10, 2021 07:22 AM Reporting Lab: [place] [facility] [address] [facility] [address] Performing Lab: [place] [facility] [address] [facility] [address] CREATININE 0.78 0.5-1.5 eGFR(CKD-EPI 2020) >90.0 >60 Dec 10, 2021 08:05 AM [facility] CBC PROFILE Sp ecimen Type: BLOOD No comment enter ed. Ordering Provid er: ISATU TODD Report Released Date/Time: Dec 10, 2021 07:22 AM Reporting Lab: [place] [facility] [address] [facility] [address] Performing Lab: [place] [facility] [address] [facility] [address] WBC 7.0 4.5-11.0 RBC 4.54 4.23-5.66 HGB [...] ecimen Type: PLASMA Comment: Tests performed on [employer] (580) SN:[id number] Ordering Provid er: ISATU TODD Report Released Date/Time: Dec 08, 2021 10:23 AM Reporting Lab: [facility] [address] [facility] [address] Performing Lab: [facility] [address] [facility] [address] MAGNESIUM 1.6 1.6-2.6 Dec 09, 2021 [facility] P4 GLU,BUN,CREAT,LYTES,CA Speci men Type: PLASMA 06:46 AM [facility] Comment: Tests performed on [employer] (405) SN:[id number] Ordering Provid er: ISATU TODD Report Released Date/Time: Dec 08, 2021 05:00 PM Reporting Lab: [facility] [address] [facility] [address] Performing Lab: [facility] [address] [facility] [address] UREA NITROGEN 6 L 7-25 SODIUM 134 [...] Reporting Lab: [facility] [address] [facility] [address] Performing Lab: [facility] [address] [facility] [address] WBC 7.1 4.5-11.0 RBC 4.40 4.23-5.66 HGB [...] 0.00 0-0 Dec 08, 2021 06:39 AM [place] [employer] T [facility] MAGNESIUM Sp ecimen Type: PLASMA Comment: Testin g Performed on [employer] (405) SN:[id number] Ordering Provid er: ISATU TODD Report Released Date/Time: Dec 07, 2021 10:32 AM Reporting Lab: [facility] [address] [facility] [address] Performing Lab: [facility] [address] [facility] [address] MAGNESIUM 1.5 L 1.6-2.6 Dec 08, 2021 [place] [employer] T P4 GLU,BUN,CREAT,LYTES,CA Speci men Type: PLASMA 06:39 AM [facility] Comment: Testin g Performed on [employer] (405) SN:[id number] Ordering Provid er: ISATU TODD Report Released Date/Time: Dec 07, 2021 10:32 AM Reporting Lab: [employer] T [facility] [address] [facility] [address] Performing Lab: [facility] [address] [facility] [address] UREA NITROGEN 6 L 7-25 SODIUM 136 135-145 POTASSIUM 3.3 L 3.5-5.0 CHLORIDE 104 100-110 CARBON DIOXIDE 22 20-30 ANION GAP 10 4-16 GLUCOSE 133 H 65-100 CREATININE 0.76 0.5-1.5 CALCIUM 8.4 L 8.5-10.5 eGFR(CKD-EPI 2020) >90.0 >60 Dec 08, 2021 06:39 AM [place] [employer] T [facility] CBC PROFILE Sp ecimen Type: BLOOD No comment enter ed. Ordering Provid er: ISATU TODD Report Released Date/Time: Dec 07, 2021 10:32 AM Reporting Lab: [facility] [address] [facility] [address] Performing Lab: [facility] [address] [facility] [address] WBC 8.4 4.5-11.0 RBC 4.75 4.23-5.66 HGB [...] ABSOLUTE NRBC 0.00 0-0 Dec 07, 2021 [facility] P4 GLU,BUN,CREAT,LYTES,CA Speci men Type: PLASMA 06:42 AM [facility] Comment: Tests performed on [employer] (405 SN:[id number] Ordering Provid er: PORFIRIO WALTERS Report Released Date/Time: Dec 06, 2021 06:57 PM Reporting Lab: [facility] [address] [facility] [address] Performing Lab: [facility] [address] [facility] [address] UREA NITROGEN 9 7-25 SODIUM 135 135-145 POTASSIUM 3.5 3.5-5.0 CHLORIDE 103 100-110 CARBON DIOXIDE 22 20-30 ANION GAP 10 4-16 GLUCOSE 92 65-100 CREATININE 0.73 0.5-1.5 CALCIUM 8.0 L 8.5-10.5 eGFR(CKD-EPI 2020) >90.0 >60 Dec 07, 2021 06:42 [place] LIVER PROFILE Specimen Typ e: PLASMA AM VAOC Comment: Tests performed on Pets are family too Trim Technician (405) SN:[id number] Ordering Provid er: PORFIRIO WALTERS Report Released Date/Time: Dec 06, 2021 06:57 PM Reporting Lab: [facility] [address] [facility] [address] Performing Lab: [facility] [address] [facility] [address] PROTEIN, TOTAL 5.7 L 6.0-8.5 ALBUMIN 2.4 L 3.2-5.0 BILIRUBIN, TOTAL 0.4 0.2-1.2 ALKALINE PHOSPHATASE 109 40-150 ALT(SGPT) 10 7-52 AST(SGOT) 15 5-34 FIB-4 SCORE 1.92 <2.67 Dec 07, 2021 06:[address] [facility] CBC PROFILE Specimen Type: BLOOD [facility] No comment enter ed. Ordering Provid er: PORFIRIO WALTERS Report Released Date/Time: Dec 06, 2021 06:57 PM Reporting Lab: [facility] [address] [facility] [address] Performing Lab: [facility] [address] [facility] [address] WBC 5.7 4.5-11.0 RBC 4.15 L 4.23-5.66 [...] VAMROC %) AUTOMATED Comment: Tests performed on [employer] (405) SN:[id number] Ordering Provid er: ISATU TODD Report Released Date/Time: Dec 07, 2021 10:28 AM Reporting Lab: [place] [facility] [address] [facility] [address] Performing Lab: [place] [facility] [address] [facility] [address] RETICULOCYTES (%) AUTOMATED 1.23 0. 6-2.0 RETICULOCYTES (ABS) AUTOMATED 0.052 0.030-0.090 Dec 06, 2021 09:45 [place] MRSA SURVL NARES Specimen Ty pe: NARES PM [facility] DNA No comment enter ed. Ordering Provid er: ALVARO VARGHESE Report Released Date/Time: Dec 07, 2021 02:20 AM Reporting Lab: [place] [facility] [address] [facility] [address] Performing Lab: [place] [facility] [address] [facility] [address] MRSA SURVL NARES DNA NEGATIVE NEGATIVE Dec 06, 2021 06:00 [place] URINALYSIS W/REFLEX TO Speci men Type: URINE PM [facility] CULTURE No comment enter ed. Ordering Provid er: JELANI SÁNCHEZ Report Released Date/Time: Dec 06, 2021 11:57 AM Reporting Lab: [place] [facility] [address] [facility] [address] Performing Lab: [place] [facility] [address] [facility] [address] URINE COLOR Arlin YELLOW SPECIFIC GRAVITY 1.029 [...] 21, R[place] VARIANT Comment: https://www.cdc.gov/coronavirus/2019-ncov/cases-updates/variant- surveillance/variant-info.html The [employer] SARS CoV 2 [employer] Research Assay-GX is a next-generation sequencing (NGS) assa 2021 [facility] SEQUENCING y that determine s the complete genome sequence of the SARS-CoV-2 virus. The assay contains variant-tolerant primers to broaden and improve the coverage for variant detection and increase the sensitivity 12:00 [facility] PNL(WH) of the panel to enable detection from lower viral titer samples. The assay is run on the [employer] Sequencer, which performs automated library preparation, sequencing, analysis, and reporting. PM The sequence an alysis includes determination of viral phylogenetic lineage by comparison to the reference strain Wuhan-Hu-1, GenBank: [id number]. Sequence determination may not be possible owing [...] and its performance characteristics determined by the [facility] Molecular Diagnostics Laboratory, which is certified under the Clinical Laboratory Improveme nt Amendments (C MARCO) as qualified to perform high complexity clinical laboratory testing. This test is validated for clinical use at [facility] and should not be regarded as [...] [facility] [address] [facility] [address] Performing Lab: [facility] [address] [facility] [address] SARS-CoV-2 CLADE() 22C (OMICRON) SARS-CoV-2 LINEAGE() BA.2.12.1 Dec 06, 2021 12:00 [facility] COVID-19 AG SCREEN Specimen Type: NASAL CAVITY PM [facility] PANEL BINAX(405) Comment: Testi ng Performed By: Mike Briscoe Ordering Provid er: JELANI SÁNCHEZ Report Released Date/Time: Dec 08, 2021 08:23 AM Reporting Lab: [facility] [address] [facility] [address] Performing Lab: [facility] [address] [facility] [address] COVID-19 AG SCRN(wrj BINAX) POSITIVE HH NE G Dec 06, 2021 12:00 PM [facility] LIVER PROFILE Sp ecimen Type: PLASMA Comment: Testin g Performed on Pham Trim Technician (405) SN:[id number] Ordering Provid er: JELANI SÁNCHEZ Report Released Date/Time: Dec 06, 2021 11:57 AM Reporting Lab: [facility] [address] [facility] [address] Performing Lab: [facility] [address] [facility] [address] PROTEIN, TOTAL 6.6 6.0-8.5 ALBUMIN 2.8 L 3.2-5.0 BILIRUBIN, TOTAL 0.6 0.2-1.2 ALKALINE PHOSPHATASE 134 40-150 ALT(SGPT) 13 7-52 AST(SGOT) 18 5-34 FIB-4 SCORE 1.94 <2.67 Dec 06, 2021 12:00 [facility] Sp ecimen Type: PLASMA Comment: Tests performed on Pham Trim Technician (405) SN:[id number] Ordering Provid er: JELANI SÁNCHEZ Report Released Date/Time: Dec 06, 2021 11:57 AM Reporting Lab: [facility] [address] [facility] [address] Performing Lab: [facility] [address] [facility] [address] TROPONIN II 0.03 0.00-0.29 Dec 06, 2021 [facility] P4 GLU,BUN,CREAT,LYTES,CA Speci men Type: PLASMA 12:00 PM [facility] Comment: Testin g Performed on Pham Trim Technician (405) SN:[id number] Ordering Provid er: JELANI SÁNCHEZ Report Released Date/Time: Dec 06, 2021 11:57 AM Reporting Lab: [place] [facility] T [facility] [address] [facility] [address] Performing Lab: [facility] [address] [facility] [address] UREA NITROGEN 13 7-25 SODIUM 138 135-145 POTASSIUM 3.8 3.5-5.0 CHLORIDE 103 100-110 CARBON DIOXIDE 23 20-30 ANION GAP 12 4-16 GLUCOSE 105 H 65-100 CREATININE 0.90 0.5-1.5 CALCIUM 8.7 8.5-10.5 eGFR(CKD-EPI 2020) >90.0 >60 Dec 06, 2021 12:00 PM [facility] Sp ecimen Type: PLASMA Comment: Tests performed on Pham Trim Technician (405) SN:[id number] Ordering Provid er: JELANI SÁNCHEZ Report Released Date/Time: Dec 06, 2021 11:57 AM Reporting Lab: [facility] [address] [facility] [address] Performing Lab: [facility] [address] [facility] [address] BNP(P) 224.8 H 10-100 Dec 06, 2021 [place] [place] COVID-19+FLU/RSV DIAGNOSTIC Spe cimen Type: NASOPHARYNX 12:00 PM [facility] PANEL(405) Comment: Tests performed on SnapAppointmentsxpert (405) Critical results called to and read back by: ALESHIA WILKINSON RN 12/06/21 @ 1312 Ordering Provid er: JELANI SÁNCHEZ Report Released Date/Time: Dec 06, 2021 11:57 AM Reporting Lab: [facility] [address] [facility] [address] Performing Lab: [place] [facility] [address] [facility] [address] FLU A(PCR) NEGATIVE NEGATIVE FLU B(PCR) NEGATIVE NEGATIVE RSV(PCR) NEGATIVE NEGATIVE COVID-19([id number]) DETECTED HH NO T DETECTED Dec 06, 2021 12:00 [facility] Sp ecimen Type: BLOOD No comment enter ed. Ordering Provid er: JELANI SÁNCHEZ Report Released Date/Time: Dec 06, 2021 11:57 AM Reporting Lab: [facility] [address] [facility] [address] Performing Lab: [facility] [address] [facility] [address] WBC 7.2 4.5-11.0 RBC 4.86 4.23-5.66 HGB [...] 12, 0 2021 10:59 [place] AM [facility] Social History: [...] took place. Date/Time Smoking Status/Tobacco Use Comment [facility] Apr 01, 2020 01:16 PM QUIT TOBACCO USE 1-[address] [facility] Mar 24, 2020 03:00 PM QUIT TOBACCO USE [facility]ARS [facility]GO [facility] Feb 21, 2019 04:11 PM QUIT TOBACCO USE 1-[address] [facility] Feb 20, 2019 03:38 PM QUIT TOBACCO USE 1-[address] [facility] Feb 03, 2019 09:50 AM QUIT TOBACCO USE 1-7 YEARS AGO [facility] May 25, 2016 11:53 PM QUIT TOBACCO USE IN PAST YEAR [facility] [...] W/WO CONTRAST: MARYELLEN LONG LUCAS LARES N [id number] -1950 [facility] Exm Date: DEC 13, 2021@12:57 Req Phys: ISATU TODD Loc: OP Unknown/0 12-15-2021@13:20 Img Loc: MRI IMAGING (OOS) Service: ZZGENERAL MEDICINE (Case [id number] COMPLETE) MRI ABDOMEN W/WO CONTRAST (M RI Detailed) CPT:35684 Reason for Study: further characterization of a [...] new lyphadenopathy REQUESTING MD: Isatu Todd PAGER: [phone] PHONE: [phone] Weight: 232.2 lb [105.32 kg] (12/12/2021 05:00) [...] patient will need to arrange for a experienced 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 to take him/her home after [...] 15, 2021 Date Verified: DEC 15, 2021 Wireless Sales Associate E-Sig:/ES/MARYELLEN LONG Report: MRI ABDOMEN W/WO CONTRAST [...] MALIGNANCY Primary Interpreting Staff: MARYELLEN LONG Staff (Wireless Sales Associate) / Dec 10, 2021 09:[address] ABDOMEN & PELVIS: RADIOLOGY,OUTSIDE [facility] BENITA MEEKLAS N [id number] -1950 SERVICE [facility] Ex Date: DEC 10, 2021@09:30 Req Phys: ISATU TODD Loc: 1S MED/12-10@10:57 Img Loc: CT SCAN (OOS) Service: [facility] MEDICINE (Case [id number] COMPLETE) CT ABD & PELVIS WITHOUT CONT RAST (CT Detailed) CPT:23870 Reason for Study: 71 yo male with [...] INDEX - NO HEIGHTS FOUND Pager number: [phone] STAT orders MUST be call ed to RADIOLOGY [phone] to speak to the appropriate game technician. Report Status: Verified Date Reported: DEC 10, 2021 Date Verified: DEC 10, 2021 Wireless Sales Associate E-Sig: Report: EXAM: CT abdomen and pelvis [...] ph nodes. READING PHYSICIAN: Ramone Munoz D.O. [phone] 12/10/2021 10:55 EDT [facility] National Teleradiology Program [phone] (For Medical Practitioner Use Only ) [address] [facility], [facility] [address], [address] [place] [address] Attention Patients / Veterans: If you have ques tions or concerns about these test results, please contact your o rdering provider or primary care team. Primary Diagnostic Code: SIGNIFICANT ABNORMALIT Y, ATTN NEEDED Primary Interpreting Staff: RADIOLOGY,OUTSIDE SERVICE, Staff Physician / Dec 09, 2021 07:34 AM BASW (MODIFIED): JESSIE CHENEY TARA ER JCLUCAS LARES N [id number] -1950 [facility] Exm Date: DEC 09, 2021@07:34 Req Phys: PEYTONISATU Manjarrez Loc: 1S MED/12-09@11:26 Img Loc: XRAY (OOS) Service: [facility] MEDICINE (Case [id number] COMPLETE) BASW (MODIFIED) (RAD Detaile d) CPT:00508 Contrast Media : Barium Reason for Study: dysphagia ?esophageal spasm Clinical History: Report Status: Verified Date Reported: DEC 09, 2021 Date Verified: DEC 09, 2021 Wireless Sales Associate E-Sig:/ES/JESSIE CHENEY Report: BASW (MODIFIED) , 12/09/2021 [...] REQUIRED Primary Interpreting Staff: JESSIE CHENEY, RADIOLOGIST (Wireless Sales Associate) /TLC Dec 06, 2021 12:[address] CHEST (INCLUDES ADRENALS): JESSIE CHENEY LUCAS LARES N [id number] -1950 M [facility] Exm Date: DEC 06, 2021@12:59 Req Phys: JELANI SÁNCHEZ Pat Loc: [facility] ED DAYS M 1RD (Req'g Loc) Img Loc: CT SCAN (OOS) Service: Unknown (Case [id number] COMPLETE) CT THORAX W/O CONT (CT Detai led) CPT:55096 Reason for Study: Opacification right chest Clinical History: No contrast allergy BUN: 13 (12/06/21 12:00) CREATI: 0.90 (12/06/21 12:00) eGFR 05/16/21 09:43 52 L Weight: 232.6 lb [105.51 kg] (12/06/2021 11:40) BODY MASS INDEX - NO HEIGHTS FOUND Pager number: [phone] STAT orders MUST be called t o RADIOLOGY [phone] to speak to the appropriate game technician. Indications - Other: Opacification right chest, covid positive, lung cancer histo Report Status: Verified Date Reported: DEC 06, 2021 Date Verified: DEC 06, 2021 Wireless Sales Associate E-Sig:/ES/JESSIE CHENEY Report: CT THORAX W/O CONT [...] REQUIRED Primary Interpreting Staff: JESSIE CHENEY, RADIOLOGIST (Wireless Sales Associate) Primary Interpreting Resident: PRINCE CHAMPION, Resident /BR Dec 06, 2021 11:58 AM CHEST SINGLE VIEW: JESSIE CHENEY DOUGLAS N [id number] -1950 M [facility] Exm Date: DEC 06, 2021@11:58 Req Phys: GONZALO,JELANI Link Pat Loc: [facility] ED DAYS M 1RD (Req'g Loc) Img Loc: XRAY (OOS) Service: Unknown (Case [id number] COMPLETE) CHEST SINGLE VIEW (RAD Detai led) CPT:53320 Proc Modifiers : PORTABLE EXAM Reason for Study: SOB, home covid test positive Clinical History: Report Status: Verified Date Reported: DEC 06, 2021 Date Verified: DEC 06, 2021 Wireless Sales Associate E-Sig:/ES/JESSIE CHENEY Report: Exam type: Chest x-ray [...] REQUIRED Primary Interpreting Staff: JESSIE CHENEY, RADIOLOGIST (Wireless Sales Associate) /TLC Pathology Reports: +/- 30 days of [...] [facility] [CLIA# [id number]] [address] [place] [address] - - - - - - [...] automatically d ocumented from SURGERY package case #[id number] Field (#32) PRINCIPAL PRE-OP DIAGNOSIS, (#.72) OTHER [...] automatically d ocumented from SURGERY package case #[id number] Field (#34) PRINCIPAL POST-OP DIAG, (#.74) OTHER [...] Label: Lucas Meek Paperwork: Lucas Meek Cassette: [id number];..;KALYANI;.;405;[id number] Specimen is labeled: ES bx Received in formalin are several pieces of pale boyd and brown tissue, 1.2 x 0.7 cm in aggregate. Submitted entirely in 1 cassette [id number];..;KALYANI;.;405;[id number] SAW 12/15/2021 Microscopic exam: *+* MODIFIED REPORT [...] in rendering the final pathologic diagnosis. [address] [address] CPT: 42670 /emely/ NIURKA Yeung MD Signed Jan 03, 2022@10:28 Performing Laboratory: Surgical Pathology Report Performed By: [facility] DOYLE [facility] [CLIA# [id number]] [address] [place] [address] $FTR - - - - - [...] - - LUCAS MEEK STANDARD FORM 515 ID:[id number] SEX:M :1950 AGE: 71 LOC: SDM END PCP: Isatu Todd /emely/ NIURKA MILLER Staff Signed: 01/03/2022 10:28 Dec 21, 2021 11:46 AM LR SURGICAL PATHOLOGY REPORT: STEFANY MILLER [facility] LOCAL TITLE: LR SURGICAL PATHOLOGY REPORT [facility] STANDARD TITLE: PATHOLOGY REPORT DATE OF NOTE: DEC 21, 2021@11:46:59 ENTRY DATE: DEC 21, 2021@11:46:59 AUTHOR: NIURKA MILLER EXP COSIGNER: URGENCY: STATUS: COMPLETED $APHDR Reporting Lab: [facility] [CLIA# [id number]] [address] [place] [address] - - - - - - [...] automatically d ocumented from SURGERY package case #[id number] Field (#32) PRINCIPAL PRE-OP DIAGNOSIS, (#.72) OTHER [...] automatically d ocumented from SURGERY package case #[id number] Field (#34) PRINCIPAL POST-OP DIAG, (#.74) OTHER [...] Label: Lucas Meek Paperwork: Lucas Meek Cassette: [id number];..;KALYANI;.;405;[id number] Specimen is labeled: ES bx Received in formalin are several pieces of pale boyd and brown tissue, 1.2 x 0.7 cm in aggregate. Submitted entirely in 1 cassette [id number];..;KALYANI;.;405;[id number] SAW 12/15/2021 Microscopic exam: DIAGNOSIS: A. 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 Kendell long. TIARA Coombs was notified on 12/21/21. The attending pathologist who signature mansoor ears on this report has reviewed all diagnostic slides and has edited t he gross and/or microscopic portion of this report in rendering the final pathologic diagnosis. [address] [address] CPT: 17363 /emely/ NIURKA Yeung MD Signed Dec 21, 2021@11:46 Performing Laboratory: Surgical Pathology Report Performed By: [facility] [CLIA# [id number]] [address] [place] [address] $FTR - - - - - [...] - - LUCAS MEEK STANDARD FORM 515 ID:[id number] SEX:M :1950 AGE: 71 LOC: SDM END PCP: Isatu Todd /charmaine Yeung MD Signed: 12/21/2021 11:46 Dec 06, 2021 03:30 PM LR MICROBIOLOGY REPORT: [facility] Reporting Lab: [facility] [CLIA# [id number]] [address] [place] [address] Accession [UID]: [id number] [[id number]] Receiv ed: Dec 06, 2021@16:14 Collection sample: BLOOD CUL T BOTTLE(NIRMAL/AERO)Collection date: Dec 06, 2021 15:30 Site/Specimen: BLOOD Provider: JELANI SÁNCHEZ Comment on specimen: LAC Test(s) ordered: BLOOD CULTURE ANAEROBI C....... completed: Dec 12, 2021 06:18 * BACTERIOLOGY FINAL REPORT => Dec 12, 2021 06:1 8 TECH CODE: [id number] Bacteriology Remark(s): NO GROWTH IN 5 DAYS =--=--=--=--=--=--=--=--=--=--=--=--=--= --=--=--=--=--=--=--=--=--=--=--=--=-- Performing Laboratory: Bacteriology Report Performed By: [facility] [CLIA# [id number]] [address] [place] [address] Dec 06, 2021 03:30 PM LR MICROBIOLOGY REPORT: [facility] Reporting Lab: [facility] [CLIA# [id number]] [address] [place] [address] Accession [UID]: [id number] [[id number]] Receiv ed: Dec 06, 2021@16:14 Collection sample: BLOOD CUL T BOTTLE(NIRMAL/AERO)Collection date: Dec 06, 2021 15:30 Site/Specimen: BLOOD Provider: JELANI SÁNCHEZ Comment on specimen: LAC Test(s) ordered: BLOOD CULTURE AEROBIC. ........ completed: Dec 12, 2021 06:17 * BACTERIOLOGY FINAL REPORT => Dec 12, 2021 06:1 7 TECH CODE: [id number] Bacteriology Remark(s): NO GROWTH IN 5 DAYS =--=--=--=--=--=--=--=--=--=--=--=--=--= --=--=--=--=--=--=--=--=--=--=--=--=-- Performing Laboratory: Bacteriology Report Performed By: [facility] [CLIA# [id number]] [address] [place] [address]
--- OUTSIDE RECORDS SUMMARY | 2022-01-19 09:20 | XMS_ITS ---
DAILY HOSPITALIZATION DATA [facility] Encounter Summary Created on:December 12, 2021 Patient:LUCAS MEEK Sex:Male :1950 Author Organization [facility] Address [address] [place] [id number] Support Name Relationship Address Phone YUSRA MEEK Unavailable [address] [place] [address] YUSRA MEEK Unavailable [address] [place] [facility] [place] [address] CLAY MOSLEY Unavailable Unavailable SJ SANTACRUZ Unavailable [...] MEDICARE MEDICARE PART Jun 18, PART A [id number] DO KALYANI PATIENT (WNR) (M) A 2016 13A 1 U[place]AS MEDICARE MEDICARE PART Jun 18, PART B [id number] DO KALYANI PATIENT (WNR) (M) B 2016 13A 1 [place] MEDICARE MEDICARE PART Jun 18, PART A [id number] KALYANIDO PATIENT (WNR) (M) A 2017 VH81 2 [place] MEDICARE MEDICARE PART Jun 18, PART B [id number] DO KALYANI PATIENT (WNR) (M) B 2017 VH81 2 [place] UNITED MEDICARE MCR(Jun 18 [id number] Luz MEEK PATIENT HEALTHCARE ADVANTAGE NR) 2021 37 0 [facility] (WNR) Selected Encounter This section includes the information on record at [place] for the Encounter. Date/Time Encounter Type Encounter Description Reason Provider Source Dec 12, 2021 05:25 Inpatient Visit DAILY HOSPITALIZATION DATA AM [facility] Encounter Template Text not used by [...] 10:00 AM AMBULATORY - [place] [facility] Mar [...] The data comes from all [place] treatment [facility]. Test Date/Time Test Type Test Details Facility Name October 31, 2021 07:37 AM Consult Order COMMUNITY CARE-EGD [facility] Cons [place] Att[facility] Choice November 15, 2021 10:37 AM Consult Order [facility] CARE-PODIATRY Cons [place] [facility] Dec 06, 2021 12:52 PM Pharmacy [...] [place] OUTPATIENT Cons [facility] [place] [facility] Jan 15, 2022 10:08 PM Consult Order [facility] CARE-PALLIATIVE CARE Cons [place] Att[facility] Choice Lab Results: +/- 30 days of [...] Range Comment Dec 15, 2021 [place] P4 GLU,BUN,CREAT,LYTES,[place] Speci men Type: PLASMA 06:43 AM [facility] Comment: Tests performed on Werkadoo (405) SN:[id number] Ordering Provid er: ISATU TODD Report Released Date/Time: Dec 11, 2021 07:42 AM Reporting Lab: [facility] [address] [facility] [address] Performing Lab: [facility] [address] [facility] [address] UREA NITROGEN 9 7-25 SODIUM 137 135-145 [...] T [facility] [address] [facility] [address] Performing Lab: [facility] [address] [facility] [address] WBC 5.7 4.5-11.0 RBC 4.22 L 4.23-5.66 [...] 2 NUE, FFPE See full report in Taxiz[employer] Image display viewer/tab#LAB-Reference Ordering Provid er: NIURKA MILLER Report Released Date/Time: Dec 21, 2021 12:11 PM Reporting Lab: [facility] [address] [facility] [address] Performing Lab: [facility] CYTOGENETIC FISH([facility]) comment Dec 14, 2021 [facility] P4 GLU,BUN,CREAT,LYTES,CA Speci men Type: PLASMA 06:27 AM [facility] Comment: Tests performed on Werkadoo (405) SN:[id number] Ordering Provid er: ISATU TODD Report Released Date/Time: Dec 11, 2021 07:42 AM Reporting Lab: [facility] [address] [facility] [address] Performing Lab: [facility] [address] [facility] [address] UREA NITROGEN 10 7-25 SODIUM 137 135-145 POTASSIUM 4.0 3.5-5.0 CHLORIDE 104 100-110 CARBON DIOXIDE 25 20-30 ANION GAP 8 4-16 GLUCOSE 99 65-100 CREATININE 0.67 0.5-1.5 CALCIUM 8.2 L 8.5-10.5 eGFR(CKD-EPI 2020) >90.0 >60 Dec 14, 2021 06:27 [facility] Sp ecimen Type: BLOOD No comment enter ed. Ordering Provid er: ISATU TODD Report Released Date/Time: Dec 10, 2021 07:22 AM Reporting Lab: [facility] [address] [facility] [address] Performing Lab: [facility] [address] [facility] [address] WBC 6.0 4.5-11.0 RBC 4.29 4.23-5.66 HGB [...] 0-0 Dec 13, 2021 06:34 AM [facility] CBC PROFILE Sp ecimen Type: BLOOD No comment enter ed. Ordering Provid er: ISATU TODD Report Released Date/Time: Dec 10, 2021 07:22 AM Reporting Lab: [facility] [address] [facility] [address] Performing Lab: [facility] [address] [facility] [address] WBC 5.6 4.5-11.0 RBC 4.28 4.23-5.66 HGB [facility] Comment: Tests performed on Werkadoo (405) SN:[id number] Ordering Provid er: ISATU TODD Report Released Date/Time: Dec 11, 2021 07:42 AM Reporting Lab: [facility] [address] [facility] [address] Performing Lab: [facility] [address] [facility] [address] UREA NITROGEN 12 7-25 SODIUM 136 135-145 POTASSIUM 3.9 3.5-5.0 CHLORIDE 105 100-110 CARBON DIOXIDE 24 20-30 ANION GAP 7 4-16 GLUCOSE 102 H 65-100 CREATININE 0.66 0.5-1.5 CALCIUM 8.3 L 8.5-10.5 eGFR(CKD-EPI 2020) >90.0 >60 Dec 12, 2021 [facility] GLU,BUN,CREAT,LYTES,CA Speci men Type: PLASMA 06:21 AM [facility] Comment: Tests performed on Werkadoo (405) SN:[id number] Ordering Provid er: ISATU TODD Report Released Date/Time: Dec 11, 2021 07:42 AM Reporting Lab: [facility] [address] [facility] [address] Performing [facility]: [facility] [address] [facility] [address] UREA NITROGEN 11 7-25 SODIUM 139 135-145 POTASSIUM 4.1 3.5-5.0 CHLORIDE 107 100-110 CARBON DIOXIDE 24 20-30 ANION GAP 8 4-16 GLUCOSE 110 H 65-100 CREATININE 0.70 0.5-1.5 CALCIUM 8.3 L 8.5-10.5 eGFR(CKD-EPI 2020) >90.0 >60 Dec 12, 2021 06:21 AM [facility] CBC PROFILE Sp ecimen Type: BLOOD No comment enter ed. Ordering Provid er: ISATU TODD Report Released Date/Time: Dec 10, 2021 07:22 AM Reporting Lab: [facility] [address] [facility] [address] Performing Lab: [facility] [address] [facility] [address] WBC 5.5 4.5-11.0 RBC 4.37 4.23-5.66 HGB [...] 0.00 0-0 Dec 12, 2021 06:00 AM Decision R[facility]T [facility] MAGNESIUM Sp ecimen Type: PLASMA Comment: Testin g Performed on Werkadoo (405) SN:[id number] Ordering Provid er: IASTU TODD Report Released Date/Time: Dec 12, 2021 08:24 AM Reporting Lab: [place] [facility] [address] [facility] [address] Performing Lab: [employer] [place] CorteraT [facility] [address] [facility] [address] MAGNESIUM 1.8 1.6-2.6 Dec 12, 2021 06:00 AM Decision RocketT Defy[facility]MR[facility] PHOSPHORUS Sp ecimen Type: PLASMA Comment: Testin g Performed on Werkadoo (405) SN:[id number] Ordering Provid er: ISATU TODD Report Released Date/Time: Dec 12, 2021 08:24 AM Reporting Lab: [place] CorteraT [facility] [address] [facility] [address] Performing Lab: [place] CorteraT [facility] [address] [facility] [address] PHOSPHORUS 3.1 2.5-5.0 Dec 11, 2021 06:15 AM [employer] [place] CorteraT DefywireMROC ELECTROLYTES Sp ecimen Type: PLASMA Comment: Tests performed on Werkadoo (405) SN:[id number] Ordering Provid er: ISATU TODD Report Released Date/Time: Dec 10, 2021 07:22 AM Reporting Lab: [place] CorteraT [facility] [address] [facility] [address] Performing Lab: [place] CorteraT [facility] [address] [facility] [address] SODIUM 137 135-145 POTASSIUM 4.3 3.5-5.0 CHLORIDE 108 100-110 CARBON DIOXIDE 20 20-30 ANION GAP 9 4-16 Dec 11, 2021 06:15 AM [facility] CBC PROFILE Sp ecimen Type: BLOOD Comment: Result s checked Ordering Provid er: ISATU TODD Report Released Date/Time: Dec 10, 2021 07:22 AM Reporting Lab: [place] [facility]MEGAT [facility] [address] [facility] [address] Performing Lab: [place] [facility]ME[facility] [address] [facility] [address] WBC 5.8 4.5-11.0 RBC 4.37 4.23-5.66 HGB [...] ecimen Type: PLASMA Comment: Tests performed on Werkadoo (905) SN:[id number] Results checked Ordering Provid er: ISATU TODD Report Released Date/Time: Dec 11, 2021 07:44 AM Reporting Lab: [facility] [address] [facility] [address] Performing Lab: [place] OMEGAT [facility] [address] [facility] [address] PHOSPHORUS 3.0 2.5-5.0 Dec 10, 2021 08:05 AM [place] [facility] MAGNESIUM Sp ecimen Type: PLASMA Comment: [place] [id number] on Dec 10, 2021@08:31 Tests performed on Werkadoo (405) SN:[id number] Ordering Provid er: ISATU TODD Report Released Date/Time: Dec 10, 2021 07:22 AM Reporting Lab: [place] [facility] [address] [facility] [place] [address] Performing Lab: [place] [facility] [address] [facility] [place] [address] MAGNESIUM 1.7 1.6-2.6 Dec 10, 2021 08:05 AM [place] [facility] PHOSPHORUS Sp ecimen Type: PLASMA Comment: [place] [id number] on Dec 10, 2021@08:31 Tests performed on Werkadoo (405) SN:[id number] Ordering Provid er: ISATU TODD Report Released Date/Time: Dec 10, 2021 07:22 AM Reporting Lab: [place] [facility] [address] [facility] [place] [address] Performing Lab: [place] [facility] [address] [facility] [place] [address] PHOSPHORUS 1.8 L 2.5-5.0 Dec 10, 2021 08:05 AM [place] UREA NITROGEN Specimen Type: PLASMA [facility] Comment: [place] [id number] on Dec 10, 2021@08:31 Tests performed on Werkadoo (405) SN:[id number] Ordering Provid er: ISATU TODD Report Released Date/Time: Dec 10, 2021 07:22 AM Reporting Lab: [place] [facility] [address] [facility] [place] [address] Performing Lab: [place] [facility] [address] [facility] [place] [address] UREA NITROGEN 8 7-25 Dec 10, 2021 08:05 AM [place] [facility] GLUCOSE Sp ecimen Type: PLASMA Comment: [place] [id number] on Dec 10, 2021@08:31 Tests performed on Werkadoo (405) SN:[id number] Ordering Provid er: ISATU TODD Report Released Date/Time: Dec 10, 2021 07:22 AM Reporting Lab: [place] [facility] [address] [facility] [address] Performing Lab: [place] [facility] [address] [facility] [address] GLUCOSE 144 H 65-100 Dec 10, 2021 08:05 [place] CREATININE WITH eGFR Specime n Type: PLASMA AM [facility] PANEL Comment: [place] [id number] on Dec 10, 2021@08:31 Tests performed on Pham Furnésh (405) SN:[id number] Ordering Provid er: ISATU TODD Report Released Date/Time: Dec 10, 2021 07:22 AM Reporting Lab: [place] [facility] [address] [facility] [address] Performing Lab: [place] [facility] [address] [facility] [address] CREATININE 0.78 0.5-1.5 eGFR(CKD-EPI 2020) >90.0 >60 Dec 10, 2021 08:05 AM [place] [facility] CALCIUM Sp ecimen Type: PLASMA Comment: [place] [id number] on Dec 10, 2021@08:31 Tests performed on Pham Furnésh (405) SN:[id number] Ordering Provid er: ISATU OTDD Report Released Date/Time: Dec 10, 2021 07:22 AM Reporting Lab: [place] [facility] [address] [facility] [address] Performing Lab: [place] [facility] [address] [facility] [address] CALCIUM 8.3 L 8.5-10.5 Dec 10, 2021 08:05 AM [place] [facility] CBC PROFILE Sp ecimen Type: BLOOD No comment enter ed. Ordering Provid er: ISATU TODD Report Released Date/Time: Dec 10, 2021 07:22 AM Reporting Lab: [place] [facility] [address] [facility] [address] Performing Lab: [place] [facility] [address] [facility] [address] WBC 7.0 4.5-11.0 RBC 4.54 4.23-5.66 HGB [...] 0.00 0-0 Dec 10, 2021 08:05 AM [facility] ELECTROLYTES Sp ecimen Type: PLASMA Comment: [place] [id number] on Dec 10, 2021@08:31 Tests performed on Werkadoo (405) SN:[id number] Ordering Provid er: ISATU TODD Report Released Date/Time: Dec 10, 2021 07:22 AM Reporting Lab: [facility] [address] [facility] [address] Performing Lab: [facility] [address] [facility] [address] SODIUM 139 135-145 POTASSIUM 3.7 3.5-5.0 CHLORIDE 107 100-110 CARBON DIOXIDE 24 20-30 ANION GAP 8 4-16 Dec 09, 2021 06:46 AM [place] CorteraT DefywireMROC MAGNESIUM Sp ecimen Type: PLASMA Comment: Tests performed on Werkadoo (405) SN:[id number] Ordering Provid er: ISATU TODD Report Released Date/Time: Dec 08, 2021 10:23 AM Reporting Lab: [place] CorteraT [facility] [address] [facility] [address] Performing Lab: [facility] [address] [facility] [address] MAGNESIUM 1.6 1.6-2.6 Dec 09, 2021 [facility] P4 GLU,BUN,CREAT,LYTES,CA Speci men Type: PLASMA 06:46 AM [facility] Comment: Tests performed on Werkadoo (405) SN:[id number] Ordering Provid er: ISATU TODD Report Released Date/Time: Dec 08, 2021 05:00 PM Reporting Lab: [facility] [address] [facility] [address] Performing Lab: [facility] [address] [facility] [address] UREA NITROGEN 6 L 7-25 SODIUM 134 [...] Lab: [facility] [address] [facility] [address] Performing Lab: [facility] [address] [facility] [address] WBC 7.1 4.5-11.0 RBC 4.40 4.23-5.66 HGB [...] 0.00 0-0 Dec 08, 2021 06:39 AM [place] [employer] [facility] MAGNESIUM Sp ecimen Type: PLASMA Comment: Testin g Performed on Werkadoo (405) SN:[id number] Ordering Provid er: ISATU TODD Report Released Date/Time: Dec 07, 2021 10:32 AM Reporting Lab: [facility] [address] [facility] [address] Performing Lab: [facility] [address] [facility] [address] MAGNESIUM 1.5 L 1.6-2.6 Dec 08, 2021 [employer] [employer] T P4 GLU,BUN,CREAT,LYTES,CA Speci men Type: PLASMA 06:39 AM [facility] Comment: Testin g Performed on Werkadoo (405) SN:[id number] Ordering Provid er: ISATU TODD Report Released Date/Time: Dec 07, 2021 10:32 AM Reporting Lab: [employer] T [facility] [address] [facility] [address] Performing Lab: [facility] [address] [facility] [address] UREA NITROGEN 6 L 7-25 SODIUM 136 135-145 POTASSIUM 3.3 L 3.5-5.0 CHLORIDE 104 100-110 CARBON DIOXIDE 22 20-30 ANION GAP 10 4-16 GLUCOSE 133 H 65-100 CREATININE 0.76 0.5-1.5 CALCIUM 8.4 L 8.5-10.5 eGFR(CKD-EPI 2020) >90.0 >60 Dec 08, 2021 06:39 AM [place] [employer] T [facility] CBC PROFILE Sp ecimen Type: BLOOD No comment enter ed. Ordering Provid er: ISATU TODD Report Released Date/Time: Dec 07, 2021 10:32 AM Reporting Lab: [facility] [address] [facility] [address] Performing Lab: [facility] [address] [facility] [address] WBC 8.4 4.5-11.0 RBC 4.75 4.23-5.66 HGB [...] 0.00 0-0 Dec 07, 2021 [facility] P4 GLU,BUN,CREAT,LYTES,CA Speci men Type: PLASMA 06:42 AM [facility] Comment: Tests performed on Werkadoo (405 SN:[id number] Ordering Provid er: PORFIRIO WALTERS Report Released Date/Time: Dec 06, 2021 06:57 PM Reporting Lab: [facility] [address] [facility] [address] Performing Lab: [facility] [address] [facility] [address] UREA NITROGEN 9 7-25 SODIUM 135 135-145 POTASSIUM 3.5 3.5-5.0 CHLORIDE 103 100-110 CARBON DIOXIDE 22 20-30 ANION GAP 10 4-16 GLUCOSE 92 65-100 CREATININE 0.73 0.5-1.5 CALCIUM 8.0 L 8.5-10.5 eGFR(CKD-EPI 2020) >90.0 >60 Dec 07, 2021 06:42 [place] LIVER PROFILE Specimen Typ e: PLASMA AM [facility] Comment: Tests performed on Side.Cr Batting Machine Operator (405) SN:[id number] Ordering Provid er: PORFIRIO WALTERS Report Released Date/Time: Dec 06, 2021 06:57 PM Reporting Lab: [facility] [address] [facility] [address] Performing Lab: [facility] [address] [facility] [address] PROTEIN, TOTAL 5.7 L 6.0-8.5 ALBUMIN 2.4 L 3.2-5.0 BILIRUBIN, TOTAL 0.4 0.2-1.2 ALKALINE PHOSPHATASE 109 40-150 ALT(SGPT) 10 7-52 AST(SGOT) 15 5-34 FIB-4 SCORE 1.92 <2.67 Dec 07, 2021 06:42 AM [facility] CBC PROFILE Specimen Type: BLOOD [facility] No comment enter ed. Ordering Provid er: PORFIRIO WALTERS Report Released Date/Time: Dec 06, 2021 06:57 PM Reporting Lab: [facility] [address] [facility] [address] Performing Lab: [facility] [address] [facility] [address] WBC 5.7 4.5-11.0 RBC 4.15 L 4.23-5.66 [...] VAM[facility]OC %) AUTOMATED Comment: Tests performed on Werkadoo (405) SN:[id number] Ordering Provid er: ISATU TODD Report Released Date/Time: Dec 07, 2021 10:28 AM Reporting Lab: [place] [facility] [address] [facility] [address] Performing Lab: [place] [facility] [address] [facility] [address] RETICULOCYTES (%) AUTOMATED 1.23 0. 6-2.0 RETICULOCYTES (ABS) AUTOMATED 0.052 0.030-0.090 Dec 06, 2021 09:45 [place] MRSA SURVL NARES Specimen Ty pe: NARES PM [facility] DNA No comment enter ed. Ordering Provid er: ALVARO VARGHESE Report Released Date/Time: Dec 07, 2021 02:20 AM Reporting Lab: [place] [facility] [address] [facility] [address] Performing Lab: [place] [facility] [address] [facility] [address] MRSA SURVL NARES DNA NEGATIVE NEGATIVE Dec 06, 2021 06:00 [place] URINALYSIS W/REFLEX TO Speci men Type: URINE PM [facility] CULTURE No comment enter ed. Ordering Provid er: JELANI SÁNCHEZ Report Released Date/Time: Dec 06, 2021 11:57 AM Reporting Lab: [place] [facility] [address] [facility] [address] Performing Lab: [place] [facility] [address] [facility] [address] URINE COLOR Arlin YELLOW SPECIFIC GRAVITY 1.029 [...] 21, [place]IANT Comment: https://www.cdc.gov/coronavirus/2019-ncov/cases-updates/variant- surveillance/variant-info.html The Collarity SARS CoV 2 [employer] Research Assay-GX is a next-generation sequencing (NGS) assa 2021 [facility] SEQUENCING y that determine s the complete genome sequence of the SARS-CoV-2 virus. The assay contains variant-tolerant primers to broaden and improve the coverage for variant detection and increase the sensitivity 12:00 [facility] PNL(WH) of the panel to enable detection from lower viral titer samples. The assay is run on the [employer] Sequencer, which performs automated library preparation, sequencing, analysis, and reporting. PM The sequence an alysis includes determination of viral phylogenetic lineage by comparison to the reference strain Wuhan-Hu-1, GenBank: [id number]. Sequence determination may not be possible owing [...] Dec 06, 2021 01:13 PM Reporting Lab: [place] [facility] [address] [facility] [address] Performing Lab: [facility] [address] [facility] [address] SARS-CoV-2 CLADE() 22C (OMICRON) SARS-CoV-2 LINEAGE() BA.2.12.1 Dec 06, 2021 12:00 [facility] COVID-19 AG SCREEN Specimen Type: NASAL CAVITY PM [facility] PANEL BINAX(405) Comment: Testi ng Performed By: Mike Briscoe Ordering Provid er: JELANI SÁNCHEZ Report Released Date/Time: Dec 08, 2021 08:23 AM Reporting Lab: [place] [facility] [address] [facility] [address] Performing Lab: [facility] [address] [facility] [address] COVID-19 AG SCRN(wrj BINAX) POSITIVE HH NE G Dec 06, 2021 12:00 PM [facility] TROPONIN II Sp ecimen Type: PLASMA Comment: Tests performed on Pham Batting Machine Operator (405) SN:[id number] Ordering Provid er: JELANI SÁNCHEZ Report Released Date/Time: Dec 06, 2021 11:57 AM Reporting Lab: [place] [facility] [address] [facility] [place] [address] Performing Lab: [place] [facility] [address] [facility] [address] TROPONIN II 0.03 0.00-0.29 Dec 06, 2021 12:00 PM [facility] BNP(P) Sp ecimen Type: PLASMA Comment: Tests performed on Pham Batting Machine Operator (405) SN:[id number] Ordering Provid er: JELANI SÁNCHEZ Report Released Date/Time: Dec 06, 2021 11:57 AM Reporting Lab: [place] [facility] [address] [facility] [address] Performing Lab: [place] [facility] [address] [facility] [address] BNP(P) 224.8 H 10-100 Dec 06, 2021 [place] P4 GLU,BUN,CREAT,LYTES,CA Speci men Type: PLASMA 12:00 PM [facility] Comment: Testin g Performed on Pham Batting Machine Operator (405) SN:[id number] Ordering Provid er: JELANI SÁNCHEZ Report Released Date/Time: Dec 06, 2021 11:57 AM Reporting Lab: [facility] [address] [facility] [address] Performing Lab: [facility] [address] [facility] [address] UREA NITROGEN 13 7-25 SODIUM 138 135-145 POTASSIUM 3.8 3.5-5.0 CHLORIDE 103 100-110 CARBON DIOXIDE 23 20-30 ANION GAP 12 4-16 GLUCOSE 105 H 65-100 CREATININE 0.90 0.5-1.5 CALCIUM 8.7 8.5-10.5 eGFR(CKD-EPI 2020) >90.0 >60 Dec 06, 2021 12:00 PM [facility] LIVER PROFILE Sp ecimen Type: PLASMA Comment: Testin g Performed on Pham Batting Machine Operator (405) SN:[id number] Ordering Provid er: JELANI SÁNCHEZ Report Released Date/Time: Dec 06, 2021 11:57 AM Reporting Lab: [facility] [address] [facility] [address] Performing Lab: [facility] [address] [facility] [address] PROTEIN, TOTAL 6.6 6.0-8.5 ALBUMIN 2.8 L 3.2-5.0 BILIRUBIN, TOTAL 0.6 0.2-1.2 ALKALINE PHOSPHATASE 134 40-150 ALT(SGPT) 13 7-52 AST(SGOT) 18 5-34 FIB-4 SCORE 1.94 <2.67 Dec 06, 2021 [facility] COVID-[facility]+FLU/RSV DIAGNOSTIC Spe cimen Type: NASOPHARYNX 12:00 PM [facility] PANEL(405) Comment: Tests performed on [employer] Genexpert (405) Critical results called to and read back by: ALESHIA WILKINSON RN 12/06/21 @ 1312 Ordering Provid er: JELANI SÁNCHEZ Report Released Date/Time: Dec 06, 2021 11:57 AM Reporting Lab[facility] [address] [address] Performing Lab: [facility] [address] [address] [address] FLU A(PCR) NEGATIVE NEGATIVE FLU B(PCR) NEGATIVE NEGATIVE RSV(PCR) NEGATIVE NEGATIVE COVID-19([id number]) DETECTED HH NO T DETECTED Dec 06, 2021 12:00 PM [facility] CBC PROFILE Sp ecimen Type: BLOOD No comment enter ed. Ordering Provid er: JELANI SÁNCHEZ Report Released Date/Time: Dec 06, 2021 11:57 AM Reporting Lab: [facility] [address] [address] [address] Performing Lab: [facility] [address] [address] [address] WBC 7.2 4.5-11.0 RBC 4.86 4.23-5.66 HGB [...] 2021 07:43 /min mm[Hg] RIVER PM T [facility] Dec 12, 0 WHITE 2021 07:37 R[place] PM [place] [facility] Dec 12, 0 WHITE 2021 02:17 RIVER PM T [facility] Dec 12, 98 F 82 127/76 18 /min 97 % WHITE 2021 02:01 /min mm[Hg] RIVER PM T [facility] Dec 12, 0 2021 10:59 RIVER AM [facility] Social History: Smoking [...] took place. Date/Time Smoking Status/Tobacco Use Comment [facility] Apr 01, 2020 01:16 PM QUIT TOBACCO USE 1-7 YEARS AGO [facility] Mar 24, 2020 03:00 PM QUIT TOBACCO USE 1-7 YEARS AGO [facility] Feb 21, 2019 04:11 PM QUIT TOBACCO USE 1-7 YEARS AGO [facility] Feb 20, 2019 03:38 PM QUIT TOBACCO USE 1-7 YEARS AGO [facility] Feb 03, 2019 09:50 AM QUIT TOBACCO USE 1-7 YEARS AGO [facility] May 25, 2016 11:53 PM QUIT TOBACCO USE IN PAST YEAR [facility] May 23, 2016 06:57 PM QUIT TOBACCO [...] W/WO CONTRAST: MARYELLEN LONG LUCAS LARES N [id number] -[id number] [facility] Exm Date: [...] new lyphadenopathy REQUESTING MD: Isatu Todd PAGER: [phone] PHONE: [phone] Weight: 232.2 lb [105.32 kg] (12/12/2021 05:00) [...] patient will need to arrange for a rivet driver to take him/her home after the [...] 15, 2021 Date Verified: DEC 15, 2021 Beer Coil Cleaner E-Sig:/ES/MARYELLEN LONG Report: MRI ABDOMEN W/WO [...] MALIGNANCY Primary Interpreting Staff: MARYELLEN LONG Staff (Beer Coil Cleaner) / Dec 10, 2021 09:[address] ABDOMEN & PELVIS: RADIOLOGY,OUTSIDE [facility] BENITA MEEKLAS N [id number] -1950 SERVICE [facility] Ex Date: DEC 10, 2021@09:30 Req Phys: ISATU TODD Loc: 1S MED/12-10@10:57 Img Loc: CT SCAN (OOS) Service: [facility] MEDICINE (Case [id number] COMPLETE) CT ABD & PELVIS WITHOUT CONT RAST (CT Detailed) CPT:49364 Reason for Study: 71 yo male with [...] INDEX - NO HEIGHTS FOUND Pager number: [phone] STAT orders MUST be call ed to RADIOLOGY [phone] to speak to the appropriate master control technician. Report Status: Verified Date Reported: DEC 10, 2021 Date Verified: DEC 10, 2021 Beer Coil Cleaner E-Sig: Report: EXAM: CT abdomen and [...] ph nodes. READING PHYSICIAN: Ramone Munoz D.O. -[phone] 12/10/2021 10:55 EDT [facility] National Teleradiology Program [phone] (For Medical Practitioner Use Only ) [address] [facility] [facility] [address] [place] [address] Attention Patients / Veterans: If you have ques tions or concerns about these test results, please contact your o rdering provider or primary care team. Primary Diagnostic Code: SIGNIFICANT ABNORMALIT Y, ATTN NEEDED Primary Interpreting Staff: RADIOLOGY,OUTSIDE SERVICE, Staff Physician / Dec 09, 2021 07:34 AM BASW (MODIFIED): JESSIE CHENEY TARA ER JCLUCAS LARES N [id number] -1950 M [facility] Exm Date: DEC 09, 2021@07:34 Req Phys: PEYTONISATU Manjarrez Loc: 1S MED/12-09@11:26 Img Loc: XRAY (OOS) Service: [facility] MEDICINE (Case [id number] COMPLETE) BASW (MODIFIED) (RAD Detaile d) CPT:27160 Contrast Media : Barium Reason for Study: dysphagia ?esophageal spasm Clinical History: Report Status: Verified Date Reported: DEC 09, 2021 Date Verified: DEC 09, 2021 Beer Coil Cleaner E-Sig:/ES/JESSIE CHENEY Report: BASW (MODIFIED) , [...] REQUIRED Primary Interpreting Staff: JESSIE CHENEY, RADIOLOGIST (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) /TLC Dec 06, 2021 12:[address] CHEST (INCLUDES ADRENALS): JESSIE CHENEY LUCAS LARES N [id number] -1950 M [facility] Exm Date: DEC 06, 2021@12:59 Req Phys: JELANI SÁNCHEZ Pat Loc: [facility] ED DAYS M 1RD (Req'g Loc) Img Loc: CT SCAN (OOS) Service: Unknown (Case [id number] COMPLETE) CT THORAX W/O CONT (CT Detai led) CPT:67146 Reason for Study: Opacification right chest Clinical History: No contrast allergy BUN: 13 (12/06/21 12:00) CREATI: 0.90 (12/06/21 12:00) eGFR 05/16/21 09:43 52 L Weight: 232.6 lb [105.51 kg] (12/06/2021 11:40) BODY MASS INDEX - NO HEIGHTS FOUND Pager number: [phone] STAT orders MUST be called t o RADIOLOGY [phone] to speak to the appropriate master control technician. Indications - Other: Opacification right chest, covid positive, lung cancer histo Report Status: Verified Date Reported: DEC 06, 2021 Date Verified: DEC 06, 2021 Beer Coil Cleaner E-Sig:/ES/JESSIE CHENEY Report: CT THORAX W/O [...] REQUIRED Primary Interpreting Staff: JESSIE CHENEY, RADIOLOGIST (Beer Coil Cleaner) Primary Interpreting Resident: PRINCE CHAMPION, Resident /BR Dec 06, 2021 11:58 AM CHEST SINGLE VIEW: JESSIE CHENEY DOUGLAS N [id number] -1950 M [facility] Exm Date: DEC 06, 2021@11:58 Req Phys: GONZALO,JELANI Link Pat Loc: [facility] ED DAYS M 1RD (Req'g Loc) Img Loc: XRAY (OOS) Service: Unknown (Case [id number] COMPLETE) CHEST SINGLE VIEW (RAD Detai led) CPT:86945 Proc Modifiers : PORTABLE EXAM Reason for Study: SOB, home covid test positive Clinical History: Report Status: Verified Date Reported: DEC 06, 2021 Date Verified: DEC 06, 2021 Beer Coil Cleaner E-Sig:/ES/JESSIE CHENEY Report: Exam type: Chest [...] REQUIRED Primary Interpreting Staff: JESSIE CHENEY, RADIOLOGIST (Beer Coil Cleaner) /TLC Pathology Reports: +/- 30 days [...] MILLER LOCAL TITLE: LR SURGICAL PATHOLOGY REPORT [facility] STANDARD TITLE: PATHOLOGY REPORT DATE OF NOTE: JAN 03, 2022@10:28:01 ENTRY DATE: JAN 03, 2022@10:28:01 AUTHOR: NIURKA MILLER EXP COSIGNER: URGENCY: STATUS: COMPLETED $APHDR Reporting Lab: [facility] [CLIA# [id number]] [address] [place] [address] - - - - - - [...] automatically d ocumented from SURGERY package case #[id number] Field (#32) PRINCIPAL PRE-OP DIAGNOSIS, (#.72) OTHER [...] automatically d ocumented from SURGERY package case #[id number] Field (#34) PRINCIPAL POST-OP DIAG, (#.74) OTHER POSTOP DIAGS Esophageal cancer Surgeon/physician: MICEHLLE CALERO Attending Surgeon: Kyle Saenz MD =-=-=-=-=-=-=-=-=-=-=-=-=-=- [...] Label: Lucas Meek Paperwork: Lucas Meek Cassette: [id number];..;KALYANI;.;405;[id number] Specimen is labeled: ES bx Received in formalin are several pieces of pale boyd and brown tissue, 1.2 x 0.7 cm in aggregate. Submitted entirely in 1 cassette [id number];..;KALYANI;.;405;[id number] SAW 12/15/2021 Microscopic exam: *+* MODIFIED REPORT [...] in rendering the final pathologic diagnosis. [address] [address] CPT: 51150 /emely/ NIURKA Yeung MD Signed Jan 03, 2022@10:28 Performing Laboratory: Surgical Pathology Report Performed By: [facility] DO[facility] [CLIA# [id number]] [address] [place] [address] $FTR - - - - - [...] - - LUCAS MEEK STANDARD FORM 515 ID:[id number] SEX:M :1950 AGE: 71 LOC: SDM END PCP: Isatu Todd /emely/ NIURKA MILLER Staff Signed: 01/03/2022 10:28 Dec 21, 2021 11:46 AM LR SURGICAL PATHOLOGY REPORT: STEFANY MILLER [facility] LOCAL TITLE: LR SURGICAL PATHOLOGY REPORT [facility] STANDARD TITLE: PATHOLOGY REPORT DATE OF NOTE: DEC 21, 2021@11:46:59 ENTRY DATE: DEC 21, 2021@11:46:59 AUTHOR: NIURKA MILLER EXP COSIGNER: URGENCY: STATUS: COMPLETED $APHDR Reporting Lab: [facility] [CLIA# [id number]] [address] [place] [address] - - - - - - [...] automatically d ocumented from SURGERY package case #[id number] Field (#32) PRINCIPAL PRE-OP DIAGNOSIS, (#.72) OTHER [...] automatically d ocumented from SURGERY package case #[id number] Field (#34) PRINCIPAL POST-OP DIAG, (#.74) OTHER [...] Label: Lucas Meek Paperwork: Lucas Meek Cassette: [id number];..;KALYANI;.;405;[id number] Specimen is labeled: ES bx Received in formalin are several pieces of pale boyd and brown tissue, 1.2 x 0.7 cm in aggregate. Submitted entirely in 1 cassette [id number];..;KALYANI;.;405;[id number] SAW 12/15/2021 Microscopic exam: DIAGNOSIS: A. 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 Kendell long. TIARA Coombs was notified on 12/21/21. The attending pathologist who signature mansoor ears on this report has reviewed all diagnostic slides and has edited t he gross and/or microscopic portion of this report in rendering the final pathologic diagnosis. [address] [address] CPT: 32478 /emely/ NIURKA Yeung MD Signed Dec 21, 2021@11:46 Performing Laboratory: Surgical Pathology Report Performed By: [facility] [CLIA# [id number]] [address] [place] [address] $FTR - - - - - [...] - - LUCAS MEEK STANDARD FORM 515 ID:[id number] SEX:M :1950 AGE: 71 LOC: SDM END PCP: Isatu Todd /charmaine Yeung MD Signed: 12/21/2021 11:46 Dec 06, 2021 03:30 PM LR MICROBIOLOGY REPORT: [facility] Reporting Lab: [facility] [CLIA# [id number]] [address] [place] [address] Accession [UID]: [id number] [[id number]] Receiv ed: Dec 06, 2021@16:14 Collection sample: BLOOD CUL T BOTTLE(NIRMAL/AERO)Collection date: Dec 06, 2021 15:30 Site/Specimen: BLOOD Provider: JELANI SÁNCHEZ Comment on specimen: LAC Test(s) ordered: BLOOD CULTURE ANAEROBI C....... completed: Dec 12, 2021 06:18 * BACTERIOLOGY FINAL REPORT => Dec 12, 2021 06:1 8 TECH CODE: [id number] Bacteriology Remark(s): NO GROWTH IN 5 DAYS =--=--=--=--=--=--=--=--=--=--=--=--=--= --=--=--=--=--=--=--=--=--=--=--=--=-- Performing Laboratory: Bacteriology Report Performed By: [facility] [CLIA# [id number]] [address] [place] [address] Dec 06, 2021 03:30 PM LR MICROBIOLOGY REPORT: [facility] Reporting Lab: [facility] [CLIA# [id number]] [address] [place] [address] Accession [UID]: [id number] [[id number]] Receiv ed: Dec 06, 2021@16:14 Collection sample: BLOOD CUL T BOTTLE(NIRMAL/AERO)Collection date: Dec 06, 2021 15:30 Site/Specimen: BLOOD Provider: JELANI SÁNCHEZ Comment on specimen: LAC Test(s) ordered: BLOOD CULTURE AEROBIC. ........ completed: Dec 12, 2021 06:17 * BACTERIOLOGY FINAL REPORT => Dec 12, 2021 06:1 7 TECH CODE: [id number] Bacteriology Remark(s): NO GROWTH IN 5 DAYS =--=--=--=--=--=--=--=--=--=--=--=--=--= --=--=--=--=--=--=--=--=--=--=--=--=-- Performing Laboratory: Bacteriology Report Performed By: [facility] [CLIA# [id number]] [address] [place] [address]
--- OUTSIDE RECORDS SUMMARY | 2022-01-19 09:21 | XMS_ITS ---
DAILY HOSPITALIZATION DATA [facility] DO[facility] Encounter Summary Created on:December 12, 2021 Patient:LUCAS MEEK Sex:Male :1950 Author Organization [facility] Address [address] [place] [id number] Support Name Relationship Address Phone YUSRA MEEK Unavailable [address] [place] [place] [address] YUSRA MEEK Unavailable [address] [place] [facility] [address] CLAY MOSLEY Unavailable Unavailable SJ SANTACRUZ Unavailable [...] Coverage Coverage Telephone Name to Policy Number [place] MEDICARE MEDICARE PART Jun 18, PART A [id number] DO KALYANI PATIENT (WNR) (M) A 2016 13A 1 U[place]AS MEDICARE MEDICARE PART Jun 18, PART B [id number] DO KALYANI PATIENT (WNR) (M) B 2016 13A 1 [place]AS MEDICARE MEDICARE PART Jun 18, PART A [id number] KALYANIDO PATIENT (WNR) (M) A 2017 VH81 2 [place]AS MEDICARE MEDICARE PART Jun 18, PART B [id number] DO KALYANI PATIENT (WNR) (M) B 2017 VH81 2 U[place]AS UNITED MEDICARE MCR(Jun [id number] Luz MEEK PATIENT HEALTHCARE ADVANTAGE NR) 2021 37 0 [facility] (WNR) Selected Encounter This section includes the information on record at [place] for the Encounter. Date/Time Encounter Type Encounter Description Reason Provider Source Dec 12, 2021 05:27 Inpatient Visit DAILY HOSPITALIZATION DATA AM [facility] Encounter Template Text not used by [...] [place] [facility] Jan 10, 2022 11:30 AM [facility] Jan 24, 2022 08:00 AM [place] [facility] Feb 21, 2022 10:00 AM [place]UL[place]ORY [place] [facility] Mar 21, [...] The data comes from all [place] treatment [facility]. Test Date/Time Test Type Test Details Facility Name October 31, 2021 07:37 AM Consult Order COMMUNITY CARE-EGD [facility] Cons Wellness Consultant's Choice November 15, 2021 10:37 AM Consult Order [facility] CARE-PODIATRY Cons Wellness Consultant's Choice Dec 06, 2021 12:52 PM Pharmacy [place] In[place] Order [facility] Dec 06, 2021 03:24 PM Pharmacy - [place] [facility] Dec 06, 2021 03:40 PM Pharmacy - [place] Order [facility] Dec 15, 2021 08:41 AM Consult Order SPEECH PATHOLOGY [place] OUTPATIENT Cons [facility] Wellness Consultant's Choice Jan 15, 2022 10:08 PM Consult Order [facility] CARE-PALLIATIVE CARE Cons Wellness Consultant's Choice Lab Results: +/- 30 days [...] Reference Range Comment Dec 15, 2021 [place] P4 GLU,BUN,CREAT,LYTES,CA Speci men Type: PLASMA 06:43 AM [facility] Comment: Tests performed on LED Optics (405) SN:[id number] Ordering Provid er: ISATU TODD Report Released Date/Time: Dec 11, 2021 07:42 AM Reporting Lab: [facility] T [facility] [address] [facility] [address] Performing Lab: [facility] [address] [facility] [address] UREA NITROGEN 9 7-25 SODIUM 137 135-145 [...] Lab: [facility] T [facility] [address] [facility] [address] Performing Lab: [facility] [address] [facility] [address] WBC 5.7 4.5-11.0 RBC 4.22 L 4.23-5.66 [...] 2 NUE, FFPE See full report in [employer] Image display viewer/tab#LAB-Reference Ordering Provid er: NIURKA MILLER Report Released Date/Time: Dec 21, 2021 12:11 PM Reporting Lab: [facility] [address] [facility] [address] Performing Lab: [facility] CYTOGENETIC FISH([facility]) comment Dec 14, 2021 [facility] P4 GLU,BUN,CREAT,LYTES,CA Speci men Type: PLASMA 06:27 AM [facility] Comment: Tests performed on LED Optics (405) SN:[id number] Ordering Provid er: ISATU TODD Report Released Date/Time: Dec 11, 2021 07:42 AM Reporting Lab: [facility] [address] [facility] [address] Performing Lab: [facility] [address] [facility] [address] UREA NITROGEN 10 7-25 SODIUM 137 135-145 [...] Reporting Lab: [facility] [address] [facility] [address] Performing Lab: [facility] [address] [facility] [address] WBC 6.0 4.5-11.0 RBC 4.29 4.23-5.66 HGB [...] PLASMA 06:34 AM [facility] Comment: Tests performed on LED Optics (405) SN:[id number] Ordering Provid er: ISATU TODD Report Released Date/Time: Dec 11, 2021 07:42 AM Reporting Lab: [facility] [address] [facility] [address] Performing Lab: [facility] [address] [facility] [address] UREA NITROGEN 12 7-25 SODIUM 136 135-145 [...] Reporting Lab: [facility] [address] [facility] [address] Performing Lab: [facility] [address] [facility] [address] WBC 5.6 4.5-11.0 RBC 4.28 4.23-5.66 HGB [...] PLASMA 06:21 AM [facility] Comment: Tests performed on LED Optics (405) SN:[id number] Ordering Provid er: ISATU TODD Report Released Date/Time: Dec 11, 2021 07:42 AM Reporting Lab: [facility] [address] [facility] [address] Performing Lab: [facility] [address] [facility] [address] UREA NITROGEN 11 7-25 SODIUM 139 135-145 [...] 2021 07:22 AM Reporting Lab: [facility] [address] [facility] [address] Performing Lab: [facility] [address] [facility] [address] WBC 5.5 4.5-11.0 RBC 4.37 4.23-5.66 HGB [...] 0.00 0-0 Dec 12, 2021 06:00 AM [facility] TaxT [facility] MAGNESIUM Sp ecimen Type: PLASMA Comment: Testin g Performed on LED Optics (405) SN:[id number] Ordering Provid er: ISATU TODD Report Released Date/Time: Dec 12, 2021 08:24 AM Reporting Lab: [place] TwinedT [facility] [address] [facility] [address] Performing Lab: [facility] [place] TwinedT [facility]ematiqueMROC [address] [facility] [address] MAGNESIUM 1.8 1.6-2.6 Dec 12, 2021 06:00 AM [facility] TaxT CinematiqueMROC PHOSPHORUS Sp ecimen Type: PLASMA Comment: Testin g Performed on LED Optics (405) SN:[id number] Ordering Provid er: ISATU TODD Report Released Date/Time: Dec 12, 2021 08:24 AM Reporting Lab: [place] TwinedT [facility] [address] [facility] [address] Performing Lab: [place] [facility]T [employer] [address] [facility] [address] PHOSPHORUS 3.1 2.5-5.0 Dec 11, 2021 06:15 AM [place] TwinedT CinematiqueMROC ELECTROLYTES Sp ecimen Type: PLASMA Comment: Tests performed on LED Optics (405) SN:[id number] Ordering Provid er: ISATU TODD Report Released Date/Time: Dec 10, 2021 07:22 AM Reporting Lab: [place] Tw[facility] [address] [facility] [address] Performing Lab: [place] [facility] [facility] [address] [facility] [address] SODIUM 137 135-145 POTASSIUM 4.3 3.5-5.0 CHLORIDE 108 100-110 CARBON DIOXIDE 20 20-30 ANION GAP 9 4-16 Dec 11, 2021 06:15 AM [place] GetO2T [facility] CBC PROFILE Sp ecimen Type: BLOOD Comment: Result s checked Ordering Provid er: ISATU TODD Report Released Date/Time: Dec 10, 2021 07:22 AM Reporting Lab: [place] OMEGAT [facility] [address] [facility] [address] Performing Lab: [place] OMEGAT [facility] [address] [facility] [address] WBC 5.8 4.5-11.0 RBC 4.37 4.23-5.66 HGB [...] Dec 11, 2021 06:00 AM [facility] PHOSPHORUS Sp ecimen Type: PLASMA Comment: Tests performed on LED Optics (437) SN:[id number] Results checked Ordering Provid er: ISATU TODD Report Released Date/Time: Dec 11, 2021 07:44 AM Reporting Lab: [place] DU[place] [facility] [address] [facility] [address] Performing Lab: [place] OMEGAT [facility] [address] [facility] [address] PHOSPHORUS 3.0 2.5-5.0 Dec 10, 2021 08:05 AM [place] [facility] MAGNESIUM Sp ecimen Type: PLASMA Comment: [place] [id number] on Dec 10, 2021@08:31 Tests performed on LED Optics (405) SN:[id number] Ordering Provid er: ISATU TODD Report Released Date/Time: Dec 10, 2021 07:22 AM Reporting Lab: [place] [facility] [address] [facility] [place] [address] Performing Lab: [place] [facility] [address] [facility] [place] [address] MAGNESIUM 1.7 1.6-2.6 Dec 10, 2021 08:05 AM [place] [facility] PHOSPHORUS Sp ecimen Type: PLASMA Comment: [place] [id number] on Dec 10, 2021@08:31 Tests performed on LED Optics (405) SN:[id number] Ordering Provid er: ISATU TODD Report Released Date/Time: Dec 10, 2021 07:22 AM Reporting Lab: [place] [facility] [address] [facility] [place] [address] Performing Lab: [place] [facility] [address] [facility] [place] [address] PHOSPHORUS 1.8 L 2.5-5.0 Dec 10, 2021 08:05 AM [place] UREA NITROGEN Specimen Type: PLASMA [facility] Comment: [place] [id number] on Dec 10, 2021@08:31 Tests performed on LED Optics (405) SN:[id number] Ordering Provid er: ISATU TODD Report Released Date/Time: Dec 10, 2021 07:22 AM Reporting Lab: [place] [facility] [address] [facility] [place] [address] Performing Lab: [place] [facility] [address] [facility] [place] [address] UREA NITROGEN 8 7-25 Dec 10, 2021 08:05 AM [place] [facility] CALCIUM Sp ecimen Type: PLASMA Comment: [place] [id number] on Dec 10, 2021@08:31 Tests performed on LED Optics (405) SN:[id number] Ordering Provid er: ISATU TODD Report Released Date/Time: Dec 10, 2021 07:22 AM Reporting Lab: [place] [facility] [address] [facility] [address] Performing Lab: [place] [facility] [address] [facility] [address] CALCIUM 8.3 L 8.5-10.5 Dec 10, 2021 08:05 [place] CREATININE WITH eGFR Specime n Type: PLASMA AM [facility] PANEL Comment: [place] [id number] on Dec 10, 2021@08:31 Tests performed on Pham GroundedPower (405) SN:[id number] Ordering Provid er: ISATU TODD Report Released Date/Time: Dec 10, 2021 07:22 AM Reporting Lab: [place] [facility] [address] [facility] [address] Performing Lab: [place] [facility] [address] [facility] [address] CREATININE 0.78 0.5-1.5 eGFR(CKD-EPI 2020) >90.0 >60 Dec 10, 2021 08:05 AM [place] [facility] ELECTROLYTES Sp ecimen Type: PLASMA Comment: [place] [id number] on Dec 10, 2021@08:31 Tests performed on Pham GroundedPower (405) SN:[id number] Ordering Provid er: ISATU TODD Report Released Date/Time: Dec 10, 2021 07:22 AM Reporting Lab: [place] [facility] [address] [facility] [address] Performing Lab: [place] [facility] [address] [facility] [address] SODIUM 139 135-145 POTASSIUM 3.7 3.5-5.0 CHLORIDE 107 100-110 CARBON DIOXIDE 24 20-30 ANION GAP 8 4-16 Dec 10, 2021 08:05 AM [place] [facility] GLUCOSE Sp ecimen Type: PLASMA Comment: [place] [id number] on Dec 10, 2021@08:31 Tests performed on Pham GroundedPower (405) SN:[id number] Ordering Provid er: ISATU TODD Report Released Date/Time: Dec 10, 2021 07:22 AM Reporting Lab: [place] [facility] [address] [facility] [address] Performing Lab: [place] [facility] [address] [facility] [address] GLUCOSE 144 H 65-100 Dec 10, 2021 08:05 AM [facility] CBC PROFILE Sp ecimen Type: BLOOD No comment enter ed. Ordering Provid er: ISATU TODD Report Released Date/Time: Dec 10, 2021 07:22 AM Reporting Lab: [place] [facility] [facility] [address] [facility] [address] Performing Lab: [place] O[place] [facility] [address] [facility] [address] WBC 7.0 4.5-11.0 RBC 4.54 4.23-5.66 HGB [...] Dec 09, 2021 06:46 AM [facility] MAGNESIUM Sp ecimen Type: PLASMA Comment: Tests performed on LED Optics (117) SN:[id number] Ordering Provid er: ISATU TODD Report Released Date/Time: Dec 08, 2021 10:23 AM Reporting Lab: [facility] [address] [facility] [address] Performing Lab: [facility] [address] [facility] [address] MAGNESIUM 1.6 1.6-2.6 Dec 09, 2021 [facility] P4 GLU,BUN,CREAT,LYTES,CA Speci men Type: PLASMA 06:46 AM [facility] Comment: Tests performed on LED Optics (405) SN:[id number] Ordering Provid er: ISATU TODD Report Released Date/Time: Dec 08, 2021 05:00 PM Reporting Lab: [facility] [address] [facility] [address] Performing Lab: [facility] [address] [facility] [facility] [address] UREA NITROGEN 6 L 7-25 SODIUM 134 [...] Reporting Lab: [facility] [address] [facility] [facility] [address] Performing Lab: [facility] [address] [facility] [facility] [address] WBC 7.1 4.5-11.0 RBC 4.40 4.23-5.66 HGB [...] 0.00 0-0 Dec 08, 2021 06:39 AM [place] [facility] T [facility] MAGNESIUM Sp ecimen Type: PLASMA Comment: Testin g Performed on LED Optics (405) SN:[id number] Ordering Provid er: ISATU TODD Report Released Date/Time: Dec 07, 2021 10:32 AM Reporting Lab: [facility] [address] [facility] [address] Performing Lab: [facility] [address] [facility] [address] MAGNESIUM 1.5 L 1.6-2.6 Dec 08, 2021 [place] [facility] T P4 GLU,BUN,CREAT,LYTES,CA Speci men Type: PLASMA 06:39 AM [facility] Comment: Testin g Performed on LED Optics (405) SN:[id number] Ordering Provid er: ISATU TODD Report Released Date/Time: Dec 07, 2021 10:32 AM Reporting Lab: [employer] T [facility] [address] [facility] [facility] [address] Performing Lab: [facility] [address] [facility] [address] UREA NITROGEN 6 L 7-25 SODIUM 136 135-145 POTASSIUM 3.3 L 3.5-5.0 CHLORIDE 104 100-110 CARBON DIOXIDE 22 20-30 ANION GAP 10 4-16 GLUCOSE 133 H 65-100 CREATININE 0.76 0.5-1.5 CALCIUM 8.4 L 8.5-10.5 eGFR(CKD-EPI 2020) >90.0 >60 Dec 08, 2021 06:39 AM [place] [facility] T [facility] CBC PROFILE Sp ecimen Type: BLOOD No comment enter ed. Ordering Provid er: ISATU TODD Report Released Date/Time: Dec 07, 2021 10:32 AM Reporting Lab: [facility] [address] [facility] [address] Performing Lab: [facility] [address] [facility] WBC 8.4 4.5-11.0 RBC 4.75 4.23-5.66 [...] e: PLASMA AM [facility] Comment: Tests performed on LED Optics (405 SN:[id number] Ordering Provid er: PORFIRIO WALTERS Report Released Date/Time: Dec 06, 2021 06:57 PM Reporting Lab: [facility] [address] [facility] [address] Performing Lab: [facility] [address] [facility] [facility] [address] PROTEIN, TOTAL 5.7 L 6.0-8.5 ALBUMIN 2.4 L 3.2-5.0 BILIRUBIN, TOTAL 0.4 0.2-1.2 ALKALINE PHOSPHATASE 109 40-150 ALT(SGPT) 10 7-52 AST(SGOT) 15 5-34 FIB-4 SCORE 1.92 <2.67 Dec 07, 2021 [facility] P4 GLU,BUN,CREAT,LYTES,CA Speci men Type: PLASMA 06:42 AM [facility] Comment: Tests performed on LED Optics (405) SN:[id number] Ordering Provid er: PORFIRIO WALTERS Report Released Date/Time: Dec 06, 2021 06:57 PM Reporting Lab: [place] [facility] [address] [facility] [address] Performing Lab: [place] [facility] [address] [facility] [address] UREA NITROGEN 9 7-25 SODIUM 135 135-145 POTASSIUM 3.5 3.5-5.0 CHLORIDE 103 100-110 CARBON DIOXIDE 22 20-30 ANION GAP 10 4-16 GLUCOSE 92 65-100 CREATININE 0.73 0.5-1.5 CALCIUM 8.0 L 8.5-10.5 eGFR(CKD-EPI 2020) >90.0 >60 Dec 07, 2021 06:42 AM [place] CBC PROFILE Specimen Type: BLOOD [facility] No comment enter ed. Ordering Provid er: PORFIRIO WALTERS Report Released Date/Time: Dec 06, 2021 06:57 PM Reporting Lab: [place] [facility] [address] [facility] [address] Performing Lab: [facility] [address] [facility] [address] WBC 5.7 4.5-11.0 RBC 4.15 L 4.23-5.66 [...] [facility] %) AUTOMATED Comment: Tests performed on LED Optics (405) SN:[id number] Ordering Provid er: ISATU TODD Report Released Date/Time: Dec 07, 2021 10:28 AM Reporting Lab: [place] [facility] [address] [facility] [address] Performing Lab: [place] [facility] [address] [facility] [address] RETICULOCYTES (%) AUTOMATED 1.23 0. 6-2.0 RETICULOCYTES (ABS) AUTOMATED 0.052 0.030-0.090 Dec 06, 2021 09:45 [place] MRSA SURVL NARES Specimen Ty pe: NARES PM [facility] DNA No comment enter ed. Ordering Provid er: ALVARO VARGHESE Report Released Date/Time: Dec 07, 2021 02:20 AM Reporting Lab: [place] [facility] [address] [facility] [address] Performing Lab: [place] [facility] [address] [facility] [address] MRSA SURVL NARES DNA NEGATIVE NEGATIVE Dec 06, 2021 06:00 [place] URINALYSIS W/REFLEX TO Speci men Type: URINE PM [facility] CULTURE No comment enter ed. Ordering Provid er: JELANI SÁNCHEZ Report Released Date/Time: Dec 06, 2021 11:57 AM Reporting Lab: [place] [facility] [address] [facility] [address] Performing Lab: [place] [facility] [address] [facility] [address] URINE COLOR Arlin YELLOW SPECIFIC GRAVITY 1.029 [...] 21, [place] Comment: https://www.cdc.gov/coronavirus/2019-ncov/cases-updates/variant- surveillance/variant-info.html The [employer]Ed SARS CoV 2 N[employer]a Research Assay-GX is a next-generation sequencing (NGS) assa 2021 [facility] SEQUENCING y that determine s the complete genome sequence of the SARS-CoV-2 virus. The assay contains variant-tolerant primers to broaden and improve the coverage for variant detection and increase the sensitivity 12:00 [facility] PNL(WH) of the panel to enable detection from lower viral titer samples. The assay is run on the Vinylmint Sequencer, which performs automated library preparation, sequencing, analysis, and reporting. PM The sequence an alysis includes determination of viral phylogenetic lineage by comparison to the reference strain Wuhan-Hu-1, GenBank: [id number]. Sequence determination may not be possible owing [...] 2021 01:13 PM Reporting Lab: [facility] [address] [facility] [facility] [address] Performing Lab: [facility] [address] [facility] [address] SARS-CoV-2 CLADE() 22C (OMICRON) SARS-CoV-2 LINEAGE() BA.2.12.1 Dec 06, 2021 12:00 [facility] COVID-19 AG SCREEN Specimen Type: NASAL CAVITY PM [facility] PANEL BINAX(405) Comment: Testi ng Performed By: Mike Briscoe Ordering Provid er: JELANI SÁNCHEZ Report Released Date/Time: Dec 08, 2021 08:23 AM Reporting Lab: [facility] [address] [facility] [address] Performing Lab: [facility] [address] [facility] [facility] [address] COVID-19 AG SCRN(wrj BINAX) POSITIVE HH NE G Dec 06, 2021 12:00 PM [facility] LIVER PROFILE Sp ecimen Type: PLASMA Comment: Testin g Performed on Pham Cabin Crew (405) SN:[id number] Ordering Provid er: JELANI SÁNCHEZ Report Released Date/Time: Dec 06, 2021 11:57 AM Reporting Lab: [facility] [address] [facility] [address] Performing Lab: [facility] [address] [facility] [address] PROTEIN, TOTAL 6.6 6.0-8.5 ALBUMIN 2.8 L 3.2-5.0 BILIRUBIN, TOTAL 0.6 0.2-1.2 ALKALINE PHOSPHATASE 134 40-150 ALT(SGPT) 13 7-52 AST(SGOT) 18 5-34 FIB-4 SCORE 1.94 <2.67 Dec 06, 2021 12:00 PM [facility] TROP[facility] Sp ecimen Type: PLASMA Comment: Tests performed on Pham Cabin Crew (405) SN:[id number] Ordering Provid er: JELANI SÁNCHEZ Report Released Date/Time: Dec 06, 2021 11:57 AM Reporting Lab: [facility] [address] [facility] [address] Performing Lab: [facility] [address] [facility] [address] TROPONIN II 0.03 0.00-0.29 Dec 06, 2021 [facility] P4 GLU,BUN,CREAT,LYTES,CA Speci men Type: PLASMA 12:00 PM [facility] Comment: Testin g Performed on Pham Cabin Crew (405) SN:[id number] Ordering Provid er: JELANI SÁNCHEZ Report Released Date/Time: Dec 06, 2021 11:57 AM Reporting Lab: [place] T [facility] [address] [facility] [address] Performing Lab: [facility] [address] [facility] [address] UREA NITROGEN 13 7-25 SODIUM 138 135-145 POTASSIUM 3.8 3.5-5.0 CHLORIDE 103 100-110 CARBON DIOXIDE 23 20-30 ANION GAP 12 4-16 GLUCOSE 105 H 65-100 CREATININE 0.90 0.5-1.5 CALCIUM 8.7 8.5-10.5 eGFR(CKD-EPI 2020) >90.0 >60 Dec 06, 2021 12:00 PM [facility] BNP(P) Sp ecimen Type: PLASMA Comment: Tests performed on Pham Cabin Crew (405) SN:[id number] Ordering Provid er: JELANI SÁNCHEZ Report Released Date/Time: Dec 06, 2021 11:57 AM Reporting Lab: [place] [facility] [address] [facility] [address] Performing Lab: [place] T [facility] [address] [facility] [address] BNP(P) 224.8 H 10-100 Dec 06, 2021 [place] COVID-19+FLU/RSV DIAGNOSTIC Spe cimen Type: NASOPHARYNX 12:00 PM [facility] PANEL(405) Comment: Tests performed on LP Aminaxpert (405) Critical results called to and read back by: ALESHIA WILKINSON RN 12/06/21 @ 1312 Ordering Provid er: JELANI SÁNCHEZ Report Released Date/Time: Dec 06, 2021 11:57 AM Reporting Lab: [place] T [facility] [address] [facility] [address] Performing Lab: [place] [facility] [address] [facility] [address] FLU A(PCR) NEGATIVE NEGATIVE FLU B(PCR) NEGATIVE NEGATIVE RSV(PCR) NEGATIVE NEGATIVE COVID-19(IHU-rtq-JVRQOEHTM) DETECTED HH NO T DETECTED Dec 06, 2021 12:00 PM [facility] CBC PROFILE Sp ecimen Type: BLOOD No comment enter ed. Ordering Provid er: JELANI SÁNCHEZ Report Released Date/Time: Dec 06, 2021 11:57 AM Reporting Lab: [facility] [address] [facility] [address] Performing Lab: [facility] [address] [facility] [address] WBC 7.2 4.5-11.0 RBC 4.86 4.23-5.66 HGB [...] 2021 07:43 /min mm[Hg] [place] PM T [facility] Dec 12, 0 [place] 2021 07:37 [place] [facility] Dec 12, 0 WHITE 2021 02:17 [place] [facility] Dec 12, 98 F 82 127/76 18 /min 97 % WHITE 2021 02:01 /min mm[Hg] [place] PM T [facility] Dec 12, 0 2021 10:59 [place] AM [facility] Social [...] took place. Date/Time Smoking Status/Tobacco Use Comment [facility] Apr 01, 2020 01:16 PM QUIT TOBACCO USE 1-7 YEARS AGO [facility] Mar 24, 2020 03:00 PM QUIT TOBACCO USE 1-7 YEARS AGO [facility] Feb 21, 2019 04:11 PM QUIT TOBACCO USE 1-7 YEARS AGO [facility] Feb 20, 2019 03:38 PM QUIT TOBACCO USE 1-7 YEARS AGO [facility] Feb 03, 2019 09:50 AM QUIT TOBACCO USE 1-7 YEARS AGO [facility] May 25, 2016 11:53 PM QUIT [facility]BAC[facility] [place] May 23, 2016 06:57 PM QUIT TOBACCO [...] W/WO CONTRAST: MARYELLEN LONG LUCAS LARES N [id number] -1950 [facility] Exm Date: DEC 13, 2021@12:57 Req Phys: ISATU TODD Loc: OP Unknown/0 12-15-2021@13:20 Img Loc: MRI IMAGING (OOS) Service: [facility]GENERAL MEDICINE (Case [id number] COMPLETE) MRI ABDOMEN W/WO CONTRAST (M RI Detailed) CPT:03164 Reason for Study: further characterization of a [...] new lyphadenopathy REQUESTING MD: Isatu Todd PAGER: [phone] PHONE: [phone] Weight: 232.2 lb [105.32 kg] (12/12/2021 05:00) [...] patient will need to arrange for a city route driver to take him/her home after [...] 15, 2021 Date Verified: DEC 15, 2021 Drawer In E-Sig:/ES/MARYELLEN LONG Report: MRI ABDOMEN W/WO CONTRAST [...] MALIGNANCY Primary Interpreting Staff: MARYELLEN LONG Staff (Drawer In) / Dec 10, 2021 09:[address] ABDOMEN & PELVIS: [facility] BENITA MEEKLAS N [id number] -1950 [facility] [place] Ex Date: DEC 10, 2021@09:30 Req Phys: ISATU TODD Loc: 1S MED/12-10@10:57 Img Loc: CT SCAN (OOS) Service: [facility] MEDICINE (Case [id number] COMPLETE) CT ABD & PELVIS WITHOUT CONT RAST (CT Detailed) CPT:18525 Reason for Study: 71 yo male with [...] INDEX - NO HEIGHTS FOUND Pager number: [phone] STAT orders MUST be call ed to RADIOLOGY [phone] to speak to the appropriate voip network technician. Report Status: Verified Date Reported: DEC 10, 2021 Date Verified: DEC 10, 2021 Drawer In E-Sig: Report: EXAM: CT abdomen and pelvis [...] ph nodes. READING PHYSICIAN: Ramone Munoz D.O. [phone] 12/10/2021 10:55 EDT THE [facility] Program [phone] (For Medical Practitioner Use Only ) [address] [facility], [facility] [address] [place] [address] Attention Patients / Veterans: If you have ques tions or concerns about these test results, please contact your o rdering provider or primary care team. Primary Diagnostic Code: SIGNIFICANT ABNORMALIT Y, ATTN NEEDED Primary Interpreting Staff: RADIOLOGY,OUTSIDE SERVICE, Staff Physician / Dec 09, 2021 07:34 AM BASW (MODIFIED): JESSIE CHENEY TARA ER JCLUCAS LARES N [id number] -1950 M [facility] Exm Date: DEC 09, 2021@07:34 Req Phys: PEYTONISATU Manjarrez Loc: 1S MED/12-09@11:26 Img Loc: XRAY (OOS) Service: [facility] MEDICINE (Case [id number] COMPLETE) BASW (MODIFIED) (RAD Detaile d) CPT:26379 Contrast Media : Barium Reason for Study: dysphagia ?esophageal spasm Clinical History: Report Status: Verified Date Reported: DEC 09, 2021 Date Verified: DEC 09, 2021 Drawer In E-Sig:/ES/JESSIE CHENEY Report: BASW (MODIFIED) , 12/09/2021 [...] REQUIRED Primary Interpreting Staff: JESSIE CHENEY, RADIOLOGIST (Drawer In) /TLC Dec 06, 2021 12:[address] CHEST (INCLUDES ADRENALS): JESSIE CHENEY LUCAS LARES N [id number] -1950 M [facility] Exm Date: DEC 06, 2021@12:59 Req Phys: JELANI SÁNCHEZ Pat Loc: [facility] ED DAYS M 1RD (Req'g Loc) Img Loc: CT SCAN (OOS) Service: Unknown (Case [id number] COMPLETE) CT THORAX W/O CONT (CT Detai led) CPT:52712 Reason for Study: Opacification right chest Clinical History: No contrast allergy BUN: 13 (12/06/21 12:00) CREATI: 0.90 (12/06/21 12:00) eGFR 05/16/21 09:43 52 L Weight: 232.6 lb [105.51 kg] (12/06/2021 11:40) BODY MASS INDEX - NO HEIGHTS FOUND Pager number: [phone] STAT orders MUST be called t o RADIOLOGY [phone] to speak to the appropriate voip network technician. Indications - Other: Opacification right chest, covid positive, lung cancer histo Report Status: Verified Date Reported: DEC 06, 2021 Date Verified: DEC 06, 2021 Drawer In E-Sig:/ES/JESSIE CHENEY Report: CT THORAX W/O CONT [...] REQUIRED Primary Interpreting Staff: JESSIE CHENEY, RADIOLOGIST (Drawer In) Primary Interpreting Resident: PRINCE CHAMPION, Resident /BR Dec 06, 2021 11:58 AM CHEST SINGLE VIEW: JESSIE CHENEY DOUGLAS N [id number] -1950 M [facility] Exm Date: DEC 06, 2021@11:58 Req Phys: GONZALO,JELANI Link Pat Loc: [facility] ED DAYS M 1RD (Req'g Loc) Img Loc: XRAY (OOS) Service: Unknown (Case [id number] COMPLETE) CHEST SINGLE VIEW (RAD Detai led) CPT:29015 Proc Modifiers : PORTABLE EXAM Reason for Study: SOB, home covid test positive Clinical History: Report Status: Verified Date Reported: DEC 06, 2021 Date Verified: DEC 06, 2021 Drawer In E-Sig:/ES/JESSIE CHENEY Report: Exam type: Chest x-ray [...] REQUIRED Primary Interpreting Staff: JESSIE CHENEY, RADIOLOGIST (Drawer In) /TLC Pathology Reports: +/- 30 days of [...] SURGICAL PATHOLOGY REPORT [facility] STANDARD TITLE: PATHOLOGY REPORT DATE OF NOTE: JAN 03, 2022@10:28:01 ENTRY DATE: JAN 03, 2022@10:28:01 AUTHOR: NIURKA MILLER EXP COSIGNER: URGENCY: STATUS: COMPLETED $APHDR Reporting Lab: CAREY MONTOYA [facility] [CLIA# [id number]] [address] [place] [address] - - - - - - [...] automatically d ocumented from SURGERY package case #[id number] Field (#32) PRINCIPAL PRE-OP DIAGNOSIS, (#.72) OTHER [...] automatically d ocumented from SURGERY package case #[id number] Field (#34) PRINCIPAL POST-OP DIAG, (#.74) OTHER [...] Label: Lucas Meek Paperwork: Lucas Meek Cassette: [id number];..;KALYANI;.;405;[phone] Specimen is labeled: ES bx Received in formalin are several pieces of pale boyd and brown tissue, 1.2 x 0.7 cm in aggregate. Submitted entirely in 1 cassette [id number];..;KALYANI;.;405;[id number] SAW 12/15/2021 Microscopic exam: *+* MODIFIED REPORT *+* (Last modified: JAN 03, 2022@09:30:20 typed by NIURAK WADDELL) DIAGNOSIS: A. 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 Kendell long. TIARA Coombs was notified on 12/21/21. Modified on 01/03/22 to include report from [facility] stating that tumor is NEGATIVE for her2/ matheus amplification. The attending pathologist who signature mansoor ears on this report has reviewed all diagnostic slides and has edited t he gross and/or microscopic portion of this report in rendering the final pathologic diagnosis. [address] [address] CPT: 43526 /emely/ NIURKA Yeung MD Signed Jan 03, 2022@10:28 Performing Laboratory: Surgical Pathology Report Performed By: CAREY DOYLE Gorge [facility] [CLIA# [id number]] [address] [place] [address] $FTR - - - - - [...] - - LUCAS MEEK STANDARD FORM 515 ID:[id number] SEX:M :1950 AGE: 71 LOC: SDM END PCP: Isatu Todd /emely/ NIURKA MILLER Staff Signed: 01/03/2022 10:28 Dec 21, 2021 11:46 AM LR SURGICAL PATHOLOGY REPORT: STEFANY MILLER [facility] LOCAL TITLE: LR SURGICAL PATHOLOGY REPORT [facility] STANDARD TITLE: PATHOLOGY REPORT DATE OF NOTE: DEC 21, 2021@11:46:59 ENTRY DATE: DEC 21, 2021@11:46:59 AUTHOR: NIURKA MILLER EXP COSIGNER: URGENCY: STATUS: COMPLETED $APHDR Reporting Lab: [facility] [CLIA# [id number]] [address] [place] [address] - - - - - - [...] automatically d ocumented from SURGERY package case #[id number] Field (#32) PRINCIPAL PRE-OP DIAGNOSIS, (#.72) OTHER [...] automatically d ocumented from SURGERY package case #[id number] Field (#34) PRINCIPAL POST-OP DIAG, (#.74) OTHER [...] Label: Lucas Meek Paperwork: Lucas Meek Cassette: [id number];..;KALYANI;.;405;[phone] Specimen is labeled: ES bx Received in formalin are several pieces of pale boyd and brown tissue, 1.2 x 0.7 cm in aggregate. Submitted entirely in 1 cassette [id number];..;KALYANI;.;405;[id number] SAW 12/15/2021 Microscopic exam: DIAGNOSIS: A. 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 Kendell long. TIARA Coombs was notified on 12/21/21. The attending pathologist who signature mansoor ears on this report has reviewed all diagnostic slides and has edited t he gross and/or microscopic portion of this report in rendering the final pathologic diagnosis. [address] [address] CPT: 59365 /emely/ NIURKA Yeung MD Signed Dec 21, 2021@11:46 Performing Laboratory: Surgical Pathology Report Performed By: [facility] [CLIA# [id number]] [address] [place] [address] $FTR - - - - - [...] - - LUCAS MEEK STANDARD FORM 515 ID:[id number] SEX:M :1950 AGE: 71 LOC: SDM END PCP: Isatu Todd /charmaine Yeung MD Signed: 12/21/2021 11:46 Dec 06, 2021 03:30 PM LR MICROBIOLOGY REPORT: [facility] Reporting Lab: [facility] [CLIA# [id number]] [address] [place] [address] Accession [UID]: [id number] [[id number]] Receiv ed: Dec 06, 2021@16:14 Collection sample: BLOOD CUL T BOTTLE(NIRMAL/AERO)Collection date: Dec 06, 2021 15:30 Site/Specimen: BLOOD Provider: JELANI SÁNCHEZ Comment on specimen: LAC Test(s) ordered: BLOOD CULTURE ANAEROBI C....... completed: Dec 12, 2021 06:18 * BACTERIOLOGY FINAL REPORT => Dec 12, 2021 06:1 8 TECH CODE: [id number] Bacteriology Remark(s): NO GROWTH IN 5 DAYS =--=--=--=--=--=--=--=--=--=--=--=--=--= --=--=--=--=--=--=--=--=--=--=--=--=-- Performing Laboratory: Bacteriology Report Performed By: [facility] [CLIA# [id number]] [address] [place] [address] Dec 06, 2021 03:30 PM LR MICROBIOLOGY REPORT: [facility] Reporting Lab: [facility] [CLIA# [id number]] [address] [place] [address] Accession [UID]: [id number] [[id number]] Receiv ed: Dec 06, 2021@16:14 Collection sample: BLOOD CUL T BOTTLE(NIRMAL/AERO)Collection date: Dec 06, 2021 15:30 Site/Specimen: BLOOD Provider: JELANI SÁNCHEZ Comment on specimen: LAC Test(s) ordered: BLOOD CULTURE AEROBIC. ........ completed: Dec 12, 2021 06:17 * BACTERIOLOGY FINAL REPORT => Dec 12, 2021 06:1 7 TECH CODE: [id number] Bacteriology Remark(s): NO GROWTH IN 5 DAYS =--=--=--=--=--=--=--=--=--=--=--=--=--= --=--=--=--=--=--=--=--=--=--=--=--=-- Performing Laboratory: Bacteriology Report Performed By: [facility] [CLIA# [id number]] [address] [place] [address]
--- OUTSIDE RECORDS SUMMARY | 2022-01-19 09:22 | XMS_ITS ---
DAILY HOSPITALIZATION DATA [facility] [place] Encounter Summary Created on:December 12, 2021 Patient:LUCAS MEEK Sex:Male :1950 Author Organization [facility] Address [address] [place] [phone] Support Name Relationship Address Phone YUSRA MEEK Unavailable [address] [place] [address] YUSRA MEEK Unavailable [address] [place] [facility] [place] [address] CLAY MOSLEY Unavailable Unavailable SJ SANTACRUZ Unavailable [...] MEDICARE MEDICARE PART Jun 18, PART B [id number] DO KALYANI PATIENT (WNR) (M) B 2016 13A 1 U[place]AS MEDICARE MEDICARE PART Jun 18, PART A [id number] DO KALYANI PATIENT (WNR) (M) A 2016 13A 1 [place]AS MEDICARE MEDICARE PART Jun 18, PART A [id number] KALYANIDO PATIENT (WNR) (M) A 2017 VH81 2 [place]AS MEDICARE MEDICARE PART Jun 18, PART B [id number] DO KALYANI PATIENT (WNR) (M) B 2017 VH81 2 LAS UNITED MEDICARE MCR(Jun [id number] Luz MEEK PATIENT HEALTHCARE ADVANTAGE NR) 2021 37 0 [facility] (WNR) Selected Encounter This section includes the information on record at MD for the Encounter. Date/Time Encounter Type Encounter Description Reason Provider Source Dec 12, 2021 06:13 Inpatient Visit DAILY HOSPITALIZATION DATA AM [facility] Encounter Template Text not used by MD [...] 10:00 AM AMBULATORY - SURGERY [place] [facility] Mar 21, [...] The data comes from all MD treatment [facility]. Test Date/Time Test Type Test Details Facility Name October 31, 2021 07:37 AM Consult Order [facility]-EGD [facility] Cons Home Improvement Contractor's Choice November 15, 2021 10:37 AM Consult Order [facility] CARE-PODIATRY Cons Home Improvement Contractor's Choice Dec 06, 2021 12:52 PM Pharmacy [...] [place] OUTPATIENT Cons [facility] Home Improvement Contractor's Choice Jan 15, 2022 10:08 PM Consult Order [facility] CARE-PALLIATIVE CARE Cons Home Improvement Contractor's Choice Lab Results: +/- 30 days of [...] Range Comment Dec 15, 2021 [place] P4 GLU,BUN,CREAT,LYTES,CA Speci men Type: PLASMA 06:43 AM [facility] Comment: Tests performed on [employer] (405) SN:[id number] Ordering Provid er: ISATU TODD Report Released Date/Time: Dec 11, 2021 07:42 AM Reporting Lab: [facility] T [facility] [address] [facility] [address] Performing Lab: [facility] [address] [facility] [address] UREA NITROGEN 9 7-25 SODIUM 137 135-145 POTASSIUM 3.8 3.5-5.0 CHLORIDE 105 100-110 CARBON DIOXIDE 26 20-30 ANION GAP 6 4-16 GLUCOSE 102 H 65-100 CREATININE 0.64 0.5-1.5 CALCIUM 8.1 L 8.5-10.5 eGFR(CKD-EPI 2020) >90.0 >60 Dec 15, 2021 06:43 AM [facility] CBC PROFILE Sp ecimen Type: BLOOD No comment enter ed. Ordering Provid er: ISATU TODD Report Released Date/Time: Dec 10, 2021 07:22 AM Reporting Lab: [facility] T [facility] [address] [facility] [address] Performing Lab: [facility] [address] [facility] [address] WBC 5.7 4.5-11.0 RBC 4.22 L 4.23-5.66 [...] CYTOGENETIC Specimen Type: ESOPHAGUS 02:59 PM [facility] Comment: ~For T est: CYTOGENETIC FISH([facility]) ~FISH HER 2 NUE, FFPE See full report in [employer] Image display viewer/tab#LAB-Reference Ordering Provid er: NIURKA MILLER Report Released Date/Time: Dec 21, 2021 12:11 PM Reporting Lab: [facility] [address] [facility] [address] Performing Lab: [facility] CYTOGENETIC FISH([facility]) comment Dec 14, 2021 [facility] P4 GLU,BUN,CREAT,LYTES,CA Speci men Type: PLASMA 06:27 AM [facility] Comment: Tests performed on [employer] (405) SN:[id number] Ordering Provid er: ISATU TODD Report Released Date/Time: Dec 11, 2021 07:42 AM Reporting Lab: [facility] [address] [facility] [address] Performing Lab: [facility] [address] [facility] [address] UREA NITROGEN 10 7-25 SODIUM 137 135-145 [...] Reporting Lab: [facility] [address] [facility] [address] Performing Lab: [facility] [address] [facility] [address] WBC 6.0 4.5-11.0 RBC 4.29 4.23-5.66 HGB [...] [facility] Comment: Tests performed on [employer] (405) SN:[id number] Ordering Provid er: ISATU TODD Report Released Date/Time: Dec 11, 2021 07:42 AM Reporting Lab: [facility] [address] [facility] [address] Performing Lab: [facility] [address] [facility] [address] UREA NITROGEN 12 7-25 SODIUM 136 135-145 [...] Reporting Lab: [facility] [address] [facility] [address] Performing Lab: [facility] [address] [facility] [address] WBC 5.6 4.5-11.0 RBC 4.28 4.23-5.66 HGB [...] [facility] Comment: Tests performed on [employer] (405) SN:[id number] Ordering Provid er: ISATU TODD Report Released Date/Time: Dec 11, 2021 07:42 AM Reporting Lab: [facility] [address] [facility] [address] Performing Lab: [facility] [address] [facility] [address] UREA NITROGEN 11 7-25 SODIUM 139 135-145 [...] 2021 07:22 AM Reporting Lab: [facility] [address] [facility] [address] Performing Lab: [facility] [address] [facility] [address] WBC 5.5 4.5-11.0 RBC 4.37 4.23-5.66 HGB [...] 0.00 0-0 Dec 12, 2021 06:00 AM Perfect MemoryT [facility] MAGNESIUM Sp ecimen Type: PLASMA Comment: Testin g Performed on [employer] (405) SN:[id number] Ordering Provid er: ISATU TODD Report Released Date/Time: Dec 12, 2021 08:24 AM Reporting Lab: [place] [employer] [facility] [address] [facility] [address] Performing Lab: [facility] [place] [employer] (PVT)MROC [address] [facility] [address] MAGNESIUM 1.8 1.6-2.6 Dec 12, 2021 06:00 AM Perfect MemoryT [employer] (PVT)MROC PHOSPHORUS Sp ecimen Type: PLASMA Comment: Testin g Performed on [employer] (405) SN:[id number] Ordering Provid er: ISATU TODD Report Released Date/Time: Dec 12, 2021 08:24 AM Reporting Lab: [place] [employer] [facility] [address] [facility] [address] Performing Lab: [place] [employer] (PVT)MROC [address] [facility] [address] PHOSPHORUS 3.1 2.5-5.0 Dec 11, 2021 06:15 AM [employer] [place] [employer]T [employer] (PVT)MROC ELECTROLYTES Sp ecimen Type: PLASMA Comment: Tests performed on [employer] (405) SN:[id number] Ordering Provid er: ISATU TODD Report Released Date/Time: Dec 10, 2021 07:22 AM Reporting Lab: [place] [employer] [facility] [address] [facility] [address] Performing Lab: [place] [employer] [facility] [address] [facility] [address] SODIUM 137 135-145 POTASSIUM 4.3 3.5-5.0 CHLORIDE 108 100-110 CARBON DIOXIDE 20 20-30 ANION GAP 9 4-16 Dec 11, 2021 06:15 AM WHITE be2T [facility] CBC PROFILE Sp ecimen Type: BLOOD Comment: Result s checked Ordering Provid er: ISATU TODD Report Released Date/Time: Dec 10, 2021 07:22 AM Reporting Lab: [place] [employer]ME[employer] [facility] [address] [facility] [address] Performing Lab: [place] [facility] [address] [facility] [address] WBC 5.8 4.5-11.0 RBC 4.37 4.23-5.66 HGB [...] Dec 11, 2021 06:00 AM [facility] PHOSPHORUS Sp ecimen Type: PLASMA Comment: Tests performed on [employer] (478) SN:[id number] Results checked Ordering Provid er: ISATU TODD Report Released Date/Time: Dec 11, 2021 07:44 AM Reporting Lab: [facility] [address] [facility] [address] Performing Lab: [place] OMEGAT MDMROC [address] [facility] [address] PHOSPHORUS 3.0 2.5-5.0 Dec 10, 2021 08:05 AM [place] [facility] MAGNESIUM Sp ecimen Type: PLASMA Comment: [place] [id number] on Dec 10, 2021@08:31 Tests performed on [employer] (405) SN:[id number] Ordering Provid er: ISATU TODD Report Released Date/Time: Dec 10, 2021 07:22 AM Reporting Lab: [place] [facility] [address] [place] [facility] [place] [address] Performing Lab: [place] [facility] [address] [place] [facility] [place] [address] MAGNESIUM 1.7 1.6-2.6 Dec 10, 2021 08:05 AM [place] UREA NITROGEN Specimen Type: PLASMA [facility] Comment: [place] [id number] on Dec 10, 2021@08:31 Tests performed on [employer] (405) SN:[id number] Ordering Provid er: ISATU TODD Report Released Date/Time: Dec 10, 2021 07:22 AM Reporting Lab: [place] [facility] [address] [place] [facility] [place] [address] Performing Lab: [place] [facility] [address] [place] [facility] [place] [address] UREA NITROGEN 8 7-25 Dec 10, 2021 08:05 AM [place] [facility] PHOSPHORUS Sp ecimen Type: PLASMA Comment: [place] [id number] on Dec 10, 2021@08:31 Tests performed on [employer] (405) SN:[id number] Ordering Provid er: ISATU TODD Report Released Date/Time: Dec 10, 2021 07:22 AM Reporting Lab: [place] [facility] [address] [place] [facility] [place] [address] Performing Lab: [place] [facility] [address] [place] [facility] [place] [address] PHOSPHORUS 1.8 L 2.5-5.0 Dec 10, 2021 08:05 AM [place] [facility] ELECTROLYTES Sp ecimen Type: PLASMA Comment: [place] [id number] on Dec 10, 2021@08:31 Tests performed on [employer] (405) SN:[id number] Ordering Provid er: ISATU TODD Report Released Date/Time: Dec 10, 2021 07:22 AM Reporting Lab: [place] [facility] [address] [facility] [address] Performing Lab: [place] [facility] [address] [facility] [address] SODIUM 139 135-145 POTASSIUM 3.7 3.5-5.0 CHLORIDE 107 100-110 CARBON DIOXIDE 24 20-30 ANION GAP 8 4-16 Dec 10, 2021 08:05 AM [place] [facility] GLUCOSE Sp ecimen Type: PLASMA Comment: [place] [id number] on Dec 10, 2021@08:31 Tests performed on [employer] (405) SN:[id number] Ordering Provid er: ISATU TODD Report Released Date/Time: Dec 10, 2021 07:22 AM Reporting Lab: [place] [facility] [address] [facility] [address] Performing Lab: [place] [facility] [address] [facility] [address] GLUCOSE 144 H 65-100 Dec 10, 2021 08:05 [place] CREATININE WITH eGFR Specime n Type: PLASMA AM [facility] PANEL Comment: [place] [id number] on Dec 10, 2021@08:31 Tests performed on [employer] (405) SN:[id number] Ordering Provid er: ISATU TODD Report Released Date/Time: Dec 10, 2021 07:22 AM Reporting Lab: [place] [facility] [address] [facility] [address] Performing Lab: [place] [facility] [address] [facility] [address] CREATININE 0.78 0.5-1.5 eGFR(CKD-EPI 2020) >90.0 >60 Dec 10, 2021 08:05 AM [place] [facility] CBC PROFILE Sp ecimen Type: BLOOD No comment enter ed. Ordering Provid er: ISATU TODD Report Released Date/Time: Dec 10, 2021 07:22 AM Reporting Lab: [place] [facility] [address] [facility] [address] Performing Lab: [place] [facility] [address] [facility] [address] WBC 7.0 4.5-11.0 RBC 4.54 4.23-5.66 HGB [...] Dec 10, 2021 08:05 AM [facility] CALCIUM Sp ecimen Type: PLASMA Comment: [place] [id number] on Dec 10, 2021@08:31 Tests performed on [employer] (405) SN:[id number] Ordering Provid er: ISATU TODD Report Released Date/Time: Dec 10, 2021 07:22 AM Reporting Lab: [facility] [address] [facility] [address] Performing Lab: [facility] [address] [facility] [address] CALCIUM 8.3 L 8.5-10.5 Dec 09, 2021 06:46 AM [place] [employer] [facility] MAGNESIUM Sp ecimen Type: PLASMA Comment: Tests performed on [employer] (405) SN:[id number] Ordering Provid er: ISATU TODD Report Released Date/Time: Dec 08, 2021 10:23 AM Reporting Lab: [facility] [address] [facility] [address] Performing Lab: [facility] [address] [facility] [address] MAGNESIUM 1.6 1.6-2.6 Dec 09, 2021 [facility] P4 GLU,BUN,CREAT,LYTES,CA Speci men Type: PLASMA 06:46 AM [facility] Comment: Tests performed on [employer] (405) SN:[id number] Ordering Provid er: ISATU TODD Report Released Date/Time: Dec 08, 2021 05:00 PM Reporting Lab: [facility] [address] [facility] [address] Performing Lab: [facility] [address] [facility] [address] UREA NITROGEN 6 L 7-25 SODIUM 134 [...] Reporting Lab: [facility] [address] [facility] [address] Performing Lab: [facility] [address] [facility] [address] WBC 7.1 4.5-11.0 RBC 4.40 4.23-5.66 HGB [...] 0.00 0-0 Dec 08, 2021 06:39 AM PAGU[place] [employer] T [facility] MAGNESIUM Sp ecimen Type: PLASMA Comment: Testin g Performed on [employer] (405) SN:[id number] Ordering Provid er: ISATU TODD Report Released Date/Time: Dec 07, 2021 10:32 AM Reporting Lab: [facility] [address] [facility] [address] Performing Lab: [facility] [address] [facility] [address] MAGNESIUM 1.5 L 1.6-2.6 Dec 08, 2021 PAGUATE [employer] T P4 GLU,BUN,CREAT,LYTES,CA Speci men Type: PLASMA 06:39 AM [facility] Comment: Testin g Performed on [employer] (405) SN:[id number] Ordering Provid er: ISATU TODD Report Released Date/Time: Dec 07, 2021 10:32 AM Reporting Lab: [employer] T [facility] [address] [facility] [address] Performing Lab: [facility] [address] [facility] [address] UREA NITROGEN 6 L 7-25 SODIUM 136 135-145 POTASSIUM 3.3 L 3.5-5.0 CHLORIDE 104 100-110 CARBON DIOXIDE 22 20-30 ANION GAP 10 4-16 GLUCOSE 133 H 65-100 CREATININE 0.76 0.5-1.5 CALCIUM 8.4 L 8.5-10.5 eGFR(CKD-EPI 2020) >90.0 >60 Dec 08, 2021 06:39 AM WHITE [employer] T [facility] CBC PROFILE Sp ecimen Type: BLOOD No comment enter ed. Ordering Provid er: ISATU TODD Report Released Date/Time: Dec 07, 2021 10:32 AM Reporting Lab: [facility] [address] [facility] [address] Performing Lab: [facility] [address] [facility] [address] WBC 8.4 4.5-11.0 RBC 4.75 4.23-5.66 HGB [...] GLU,BUN,CREAT,LYTES,CA Speci men Type: PLASMA 06:42 AM [facility] Comment: Tests performed on [employer] (405 SN:[id number] Ordering Provid er: PORFIRIO WALTERS Report Released Date/Time: Dec 06, 2021 06:57 PM Reporting Lab: [facility] [address] [facility] [address] Performing Lab: [facility] [address] [facility] [address] UREA NITROGEN 9 7-25 SODIUM 135 135-145 POTASSIUM 3.5 3.5-5.0 CHLORIDE 103 100-110 CARBON DIOXIDE 22 20-30 ANION GAP 10 4-16 GLUCOSE 92 65-100 CREATININE 0.73 0.5-1.5 CALCIUM 8.0 L 8.5-10.5 eGFR(CKD-EPI 2020) >90.0 >60 Dec 07, 2021 06:42 [place] LIVER PROFILE Specimen Typ e: PLASMA AM VAOC Comment: Tests performed on [employer] Fnp (405) SN:[id number] Ordering Provid er: PORFIRIO WALTESR Report Released Date/Time: Dec 06, 2021 06:57 PM Reporting Lab: [facility] [address] [facility] [address] Performing Lab: [facility] [address] [facility] [address] PROTEIN, TOTAL 5.7 L 6.0-8.5 ALBUMIN 2.4 L 3.2-5.0 BILIRUBIN, TOTAL 0.4 0.2-1.2 ALKALINE PHOSPHATASE 109 40-150 ALT(SGPT) 10 7-52 AST(SGOT) 15 5-34 FIB-4 SCORE 1.92 <2.67 Dec 07, 2021 06:42 AM [facility]ITE [facility] CBC PROFILE Specimen Type: BLOOD [facility] No comment enter ed. Ordering Provid er: PORFIRIO WALTERS Report Released Date/Time: Dec 06, 2021 06:57 PM Reporting Lab: [facility] [address] [facility] [address] Performing Lab: [facility] [address] [facility] [address] WBC 5.7 4.5-11.0 RBC 4.15 L 4.23-5.66 [...] VAMROC %) AUTOMATED Comment: Tests performed on [employer] (405) SN:[id number] Ordering Provid er: ISATU TODD Report Released Date/Time: Dec 07, 2021 10:28 AM Reporting Lab: [place] [facility] [address] [facility] [address] Performing Lab: [place] [facility] [address] [facility] [address] RETICULOCYTES (%) AUTOMATED 1.23 0. 6-2.0 RETICULOCYTES (ABS) AUTOMATED 0.052 0.030-0.090 Dec 06, 2021 09:45 [place] MRSA SURVL NARES Specimen Ty pe: NARES PM [facility] DNA No comment enter ed. Ordering Provid er: ALVARO VARGHESE Report Released Date/Time: Dec 07, 2021 02:20 AM Reporting Lab: [place] [facility] [address] [facility] [address] Performing Lab: [place] [facility] [address] [facility] [address] MRSA SURVL NARES DNA NEGATIVE NEGATIVE Dec 06, 2021 06:00 [place] URINALYSIS W/REFLEX TO Speci men Type: URINE PM [facility] CULTURE No comment enter ed. Ordering Provid er: JELANI SÁNCHEZ Report Released Date/Time: Dec 06, 2021 11:57 AM Reporting Lab: [place] [facility] [address] [facility] [address] Performing Lab: [place] [facility] [address] [facility] [address] URINE COLOR Arlin YELLOW SPECIFIC GRAVITY 1.029 [...] 21, [place] VARIANT Comment: https://www.cdc.gov/coronavirus/2019-ncov/cases-updates/variant- surveillance/variant-info.html The [employer] SARS CoV 2 [employer] Assay-GX is a next-generation sequencing (NGS) assa 2021 [facility] SEQUENCING y that determine s the complete genome sequence of the SARS-CoV-2 virus. The assay contains variant-tolerant primers to broaden and improve the coverage for variant detection and increase the sensitivity 12:00 [facility] PNL(WH) of the panel to enable detection from lower viral titer samples. The assay is run on the [employer] Sequencer, which performs automated library preparation, sequencing, analysis, and reporting. PM The sequence an alysis includes determination of viral phylogenetic lineage by comparison to the reference strain Wuhan-Hu-1, GenBank: [id number]. Sequence determination may not be possible owing [...] 2021 01:13 PM Reporting Lab: [facility] [address] [facility] [address] Performing Lab: [facility] [address] [facility] [address] SARS-CoV-2 CLADE() 22C (OMICRON) SARS-CoV-2 LINEAGE() BA.2.12.1 Dec 06, 2021 12:00 [facility] COVID-19 AG SCREEN Specimen Type: NASAL CAVITY PM [facility] PANEL BINAX(405) Comment: Testi ng Performed By: Mike Briscoe Ordering Provid er: JELANI SÁNCHEZ Report Released Date/Time: Dec 08, 2021 08:23 AM Reporting Lab: [facility] [address] [facility] [address] Performing Lab: [facility] [address] [facility] [address] COVID-19 AG SCRN(wrj BINAX) POSITIVE HH NE G Dec 06, 2021 12:00 PM [facility] LIVER PROFILE Sp ecimen Type: PLASMA Comment: Testin g Performed on [employer] Fnp (405) SN:[id number] Ordering Provid er: JELANI SÁNCHEZ Report Released Date/Time: Dec 06, 2021 11:57 AM Reporting Lab: [facility] [address] [facility] [address] Performing Lab: [facility] [address] [facility] [address] PROTEIN, TOTAL 6.6 6.0-8.5 ALBUMIN 2.8 L 3.2-5.0 BILIRUBIN, TOTAL 0.6 0.2-1.2 ALKALINE PHOSPHATASE 134 40-150 ALT(SGPT) 13 7-52 AST(SGOT) 18 5-34 FIB-4 SCORE 1.94 <2.67 Dec 06, 2021 12:00 PM [facility] TROPONIN II Sp ecimen Type: PLASMA Comment: Tests performed on [employer] Fnp (405) SN:[id number] Ordering Provid er: JELANI SÁNCHEZ Report Released Date/Time: Dec 06, 2021 11:57 AM Reporting Lab: [facility] [address] [facility] [address] Performing Lab: [facility] [address] [facility] [address] TROPONIN II 0.03 0.00-0.29 Dec 06, 2021 [facility] P4 GLU,BUN,CREAT,LYTES,CA Speci men Type: PLASMA 12:00 PM [facility] Comment: Testin g Performed on [employer] Fnp (405) SN:[id number] Ordering Provid er: JELANI SÁNCHEZ Report Released Date/Time: Dec 06, 2021 11:57 AM Reporting Lab: [place] T [facility] [address] [facility] [address] Performing Lab: [facility] [address] [facility] [address] UREA NITROGEN 13 7-25 SODIUM 138 135-145 POTASSIUM 3.8 3.5-5.0 CHLORIDE 103 100-110 CARBON DIOXIDE 23 20-30 ANION GAP 12 4-16 GLUCOSE 105 H 65-100 CREATININE 0.90 0.5-1.5 CALCIUM 8.7 8.5-10.5 eGFR(CKD-EPI 2020) >90.0 >60 Dec 06, 2021 12:00 PM [facility] BNP(P) Sp ecimen Type: PLASMA Comment: Tests performed on [employer] Fnp (405) SN:[id number] Ordering Provid er: JELANI SÁNCHEZ Report Released Date/Time: Dec 06, 2021 11:57 AM Reporting Lab: [facility] [facility] [address] [facility] [address] Performing Lab: [facility] T [facility] [address] [facility] [address] BNP(P) 224.8 H 10-100 Dec 06, 2021 [place] COVID-19+FLU/RSV DIAGNOSTIC Spe cimen Type: NASOPHARYNX 12:00 PM [facility] PANEL(405) Comment: Tests performed on [employer] (405) Critical results called to and read back by: ALESHIA WILKINSON RN 12/06/21 @ 1312 Ordering Provid er: JELANI SÁNCHEZ Report Released Date/Time: Dec 06, 2021 11:57 AM Reporting Lab: [place] T [facility] [address] [facility] [address] Performing Lab: [place] [facility] [address] [facility] [address] FLU A(PCR) NEGATIVE NEGATIVE FLU B(PCR) NEGATIVE NEGATIVE RSV(PCR) NEGATIVE NEGATIVE COVID-19(VIG-rjn-EGZEMEULT) DETECTED HH NO T DETECTED Dec 06, 2021 12:00 PM [facility] CBC PROFILE Sp ecimen Type: BLOOD No comment enter ed. Ordering Provid er: JELANI SÁNCHEZ Report Released Date/Time: Dec 06, 2021 11:57 AM Reporting Lab: [facility] [address] [facility] [address] Performing Lab: [facility] [address] [facility] [address] WBC 7.2 4.5-11.0 RBC 4.86 4.23-5.66 HGB [...] Dec 12, 0 2021 10:59 [place] AM [facility] Social History: Smoking Status (Most current) and [...] took place. Date/Time Smoking Status/Tobacco Use Comment [facility] Apr 01, 2020 01:16 PM QUIT TOBACCO USE 1-7 YEARS AGO [facility] Mar 24, 2020 03:00 PM QUIT TOBACCO USE 1-7 YEARS AGO [facility] Feb 21, 2019 04:11 PM QUIT TOBACCO USE 1-7 YEARS AGO [facility] Feb 20, 2019 03:38 PM QUIT TOBACCO USE 1-7 YEARS AGO [facility] Feb 03, 2019 09:50 AM QUIT TOBACCO USE 1-7 YEARS AGO [facility] May 25, 2016 11:53 PM QUIT TOBACCO USE IN PAST YEAR [facility] May 23, 2016 06:57 [...] PAST YEAR [facility] DOYLE [facility] May 01, 2016 11:19 AM QUIT TOBACCO USE IN PAST YEAR [facility] DOYLE [facility] Mar 16, 2016 12:50 PM V1-PT DECLINES REF TO TOBACCO [facility] DOYLE [facility] CESS [facility] Mar 16, 2016 12:50 PM V1-PT THINKING ABOUT QUIT [facility] DOYLE [facility] TOBACCO USE Aug 12, 2015 08:48 AM CURRENT SMOKER [facility] Yates [facility] Radiology Reports: +/- 30 days of the [...] W/WO CONTRAST: MARYELLEN LONG LUCAS LARES N [id number] -1950 [facility] Exm Date: DEC 13, 2021@12:57 Req Phys: ISATU TODD Loc: OP Unknown/0 12-15-2021@13:20 Img Loc: MRI IMAGING (OOS) Service: ZZGENERAL MEDICINE (Case [id number] COMPLETE) MRI ABDOMEN W/WO CONTRAST (M RI Detailed) CPT:25567 Reason for Study: further characterization of a [...] new lyphadenopathy REQUESTING MD: Isatu Todd PAGER: [phone] PHONE: [id number] Weight: 232.2 lb [105.32 kg] (12/12/2021 05:00) [...] 15, 2021 Date Verified: DEC 15, 2021 Sanitation Technician E-Sig:/ES/MARYELLEN LONG Report: MRI ABDOMEN W/WO [...] MALIGNANCY Primary Interpreting Staff: MARYELLEN LONG Staff (Sanitation Technician) / Dec 10, 2021 09:[address] ABDOMEN & PELVIS: [facility] BEN[facility] MEEKLAS N [id number] -1950 SERVICE [facility] Ex Date: DEC 10, 2021@09:30 Req Phys: ISATU TODD Loc: 1S MED/12-10@10:57 Img Loc: CT SCAN (OOS) Service: [facility] MEDICINE (Case [id number] COMPLETE) CT ABD & PELVIS WITHOUT CONT RAST (CT Detailed) CPT:42277 Reason for Study: 71 yo male with [...] INDEX - NO HEIGHTS FOUND Pager number: [phone] STAT orders MUST be call ed to RADIOLOGY [phone] to speak to the appropriate phone technician. Report Status: Verified Date Reported: DEC 10, 2021 Date Verified: DEC 10, 2021 Sanitation Technician E-Sig: Report: EXAM: CT abdomen and [...] ph nodes. READING PHYSICIAN: Ramone Munoz D.O. [phone] 12/10/2021 10:55 EDT [facility] National Teleradiology Program [phone] (For Medical Practitioner Use Only ) [address], [facility] [address], [address] [place] [address] Attention Patients / Veterans: If you have ques tions or concerns about these test results, please contact your o rdering provider or primary care team. Primary Diagnostic Code: SIGNIFICANT ABNORMALIT Y, ATTN NEEDED Primary Interpreting Staff: RADIOLOGY,OUTSIDE SERVICE, Staff Physician / Dec 09, 2021 07:34 AM BASW (MODIFIED): JESSIE CHENEY TARA ER JCLUCAS LARES N [id number] -1950 M [facility] Exm Date: DEC 09, 2021@07:34 Req Phys: PEYTONISATU Manjarrez Loc: 1S MED/12-09@11:26 Img Loc: XRAY (OOS) Service: [facility] MEDICINE (Case [id number] COMPLETE) BASW (MODIFIED) (RAD Detaile d) CPT:86331 Contrast Media : Barium Reason for Study: dysphagia ?esophageal spasm Clinical History: Report Status: Verified Date Reported: DEC 09, 2021 Date Verified: DEC 09, 2021 Sanitation Technician E-Sig:/ES/JESSIE CHENEY Report: BASW (MODIFIED) , [...] REQUIRED Primary Interpreting Staff: JESSIE CHENEY, RADIOLOGIST (Sanitation Technician) /TLC Dec 06, 2021 12:[address] CHEST (INCLUDES ADRENALS): JESSIE CHENEY LUCAS LARES N [id number] -1950 M [facility] Exm Date: DEC 06, 2021@12:59 Req Phys: JELANI SÁNCHEZ Pat Loc: [facility] ED DAYS M 1RD (Req'g Loc) Img Loc: CT SCAN (OOS) Service: Unknown (Case [id number] COMPLETE) CT THORAX W/O CONT (CT Detai led) CPT:75849 Reason for Study: Opacification right chest Clinical [...] 06, 2021 Date Verified: DEC 06, 2021 Sanitation Technician E-Sig:/ES/JESSIE CHENEY Report: CT THORAX W/O [...] REQUIRED Primary Interpreting Staff: JESSIE CHENEY, RADIOLOGIST (Sanitation Technician) Primary Interpreting Resident: RPINCE CHAMPION, Resident /BR Dec 06, 2021 11:58 AM CHEST SINGLE VIEW: JESSIE CHENEY DOUGLAS N [id number] -1950 M [facility] Exm Date: DEC 06, 2021@11:58 Req Phys: GONZALO,JELANI Link Pat Loc: [facility] ED DAYS M 1RD (Req'g Loc) Img Loc: XRAY (OOS) Service: Unknown (Case [id number] COMPLETE) CHEST SINGLE VIEW (RAD Detai led) CPT:66753 Proc Modifiers : PORTABLE EXAM Reason for Study: SOB, home covid test positive Clinical History: Report Status: Verified Date Reported: DEC 06, 2021 Date Verified: DEC 06, 2021 Sanitation Technician E-Sig:/ES/JESSIE CHENEY Report: Exam type: Chest [...] REQUIRED Primary Interpreting Staff: JESSIE CHENEY, RADIOLOGIST (Sanitation Technician) /TLC Pathology Reports: +/- 30 days [...] Lab: [facility]TO[facility] [CLIA# [id number]] [address] [place] [address] - - - - - - [...] automatically d ocumented from SURGERY package case #[id number] Field (#32) PRINCIPAL PRE-OP DIAGNOSIS, (#.72) OTHER [...] automatically d ocumented from SURGERY package case #[id number] Field (#34) PRINCIPAL POST-OP DIAG, (#.74) OTHER [...] Label: Lucas Meek Paperwork: Lucas Meek Cassette: [id number];..;KALYANI;.;405;[id number] Specimen is labeled: ES bx Received in formalin are several pieces of pale boyd and brown tissue, 1.2 x 0.7 cm in aggregate. Submitted entirely in 1 cassette [id number];..;KALYANI;.;405;[id number] SAW 12/15/2021 Microscopic exam: *+* MODIFIED REPORT *+* (Last modified: JAN 03, 2022@09:30:20 typed by NIURKA WADDELL) DIAGNOSIS: A. 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 Kendell long. TIARA Coombs was notified on 12/21/21. Modified on 01/03/22 to include report from [facility] stating that tumor is NEGATIVE for her2/ matheus amplification. The attending pathologist who signature mansoor ears on this report has reviewed all diagnostic slides and has edited t he gross and/or microscopic portion of this report in rendering the final pathologic diagnosis. [address] [address] CPT: 23236 /emely/ NIURKA Yeung MD Signed Jan 03, 2022@10:28 Performing Laboratory: Surgical Pathology Report Performed By: [facility]Y DO[facility] [place] [facility] [CLIA# [id number]] [address] [place] [address] $FTR - - - - - [...] - - LUCAS MEEK STANDARD FORM 515 ID:[id number] SEX:M :1950 AGE: 71 LOC: SDM END PCP: Isatu Todd /emely/ NIURKA MILLER Staff Signed: 01/03/2022 10:28 Dec 21, 2021 11:46 AM LR SURGICAL PATHOLOGY REPORT: STEFANY MILLER [facility] LOCAL TITLE: LR SURGICAL PATHOLOGY REPORT [facility] STANDARD TITLE: PATHOLOGY REPORT DATE OF NOTE: DEC 21, 2021@11:46:59 ENTRY DATE: DEC 21, 2021@11:46:59 AUTHOR: NIURKA MILLER EXP COSIGNER: URGENCY: STATUS: COMPLETED $APHDR Reporting Lab: [facility] [CLIA# [id number]] [address] [place] [address] - - - - - - [...] automatically d ocumented from SURGERY package case #[id number] Field (#32) PRINCIPAL PRE-OP DIAGNOSIS, (#.72) OTHER [...] automatically d ocumented from SURGERY package case #[id number] Field (#34) PRINCIPAL POST-OP DIAG, (#.74) OTHER [...] Label: Lucas Meek Paperwork: Lucas Meek Cassette: [id number];..;KALYANI;.;405;[id number] Specimen is labeled: ES bx Received in formalin are several pieces of pale boyd and brown tissue, 1.2 x 0.7 cm in aggregate. Submitted entirely in 1 cassette [id number];..;KALYANI;.;405;[id number] SAW 12/15/2021 Microscopic exam: DIAGNOSIS: A. 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 Kendell long. TIARA Coombs was notified on 12/21/21. The attending pathologist who signature mansoor ears on this report has reviewed all diagnostic slides and has edited t he gross and/or microscopic portion of this report in rendering the final pathologic diagnosis. [address] [address] CPT: 69492 /emely/ NIURKA Yeung MD Signed Dec 21, 2021@11:46 Performing Laboratory: Surgical Pathology Report Performed By: [facility] [CLIA# [id number]] [address] [place] [address] $FTR - - - - - [...] - - LUCAS MEEK STANDARD FORM 515 ID:[id number] SEX:M :1950 AGE: 71 LOC: SDM END PCP: Isatu Todd /charmaine Yeung MD Signed: 12/21/2021 11:46 Dec 06, 2021 03:30 PM LR MICROBIOLOGY REPORT: [facility] Reporting Lab: [facility] [CLIA# [id number]] [address] [place] [address] Accession [UID]: [id number] [[id number]] Receiv ed: Dec 06, 2021@16:14 Collection sample: BLOOD CUL T BOTTLE(NIRMAL/AERO)Collection date: Dec 06, 2021 15:30 Site/Specimen: BLOOD Provider: JELANI SÁNCHEZ Comment on specimen: LAC Test(s) ordered: BLOOD CULTURE ANAEROBI C....... completed: Dec 12, 2021 06:18 * BACTERIOLOGY FINAL REPORT => Dec 12, 2021 06:1 8 TECH CODE: [id number] Bacteriology Remark(s): NO GROWTH IN 5 DAYS =--=--=--=--=--=--=--=--=--=--=--=--=--= --=--=--=--=--=--=--=--=--=--=--=--=-- Performing Laboratory: Bacteriology Report Performed By: [facility] [CLIA# [id number]] [address] [place] [address] Dec 06, 2021 03:30 PM LR MICROBIOLOGY REPORT: [facility] Reporting Lab: [facility] [CLIA# [id number]] [address] [place] [address] Accession [UID]: [id number] [[id number]] Receiv ed: Dec 06, 2021@16:14 Collection sample: BLOOD CUL T BOTTLE(NIRMAL/AERO)Collection date: Dec 06, 2021 15:30 Site/Specimen: BLOOD Provider: JELANI SÁNCHEZ Comment on specimen: LAC Test(s) ordered: BLOOD CULTURE AEROBIC. ........ completed: Dec 12, 2021 06:17 * BACTERIOLOGY FINAL REPORT => Dec 12, 2021 06:1 7 TECH CODE: [id number] Bacteriology Remark(s): NO GROWTH IN 5 DAYS =--=--=--=--=--=--=--=--=--=--=--=--=--= --=--=--=--=--=--=--=--=--=--=--=--=-- Performing Laboratory: Bacteriology Report Performed By: [facility] [CLIA# [id number]] [address] [place] [address]
--- OUTSIDE RECORDS SUMMARY | 2022-01-19 09:23 | XMS_ITS | Encounter Summary ---
:1950 Author Organization [facility] Address [address] [place] [address] Support Name Relationship Address Phone YUSRA MEEK Unavailable [address] [place] [facility] [place] [address] YUSRA MEEK Unavailable [address] - [place] [facility] [place] [address] CLAY MOSLEY Unavailable Unavailable SJ SANTACRUZ Unavailable [...] MEDICARE MEDICARE PART Jun 18, PART A [id number] DO KALYANI PATIENT (WNR) (M) A 2016 13A 1 UGLAS MEDICARE MEDICARE PART Jun 18, PART A [id number] KALYANIDO PATIENT (WNR) (M) A 2017 VH81 2 LAS MEDICARE MEDICARE PART Jun 18, PART B [id number] KALYANIDO PATIENT (WNR) (M) B 2016 13A 1 UGLAS MEDICARE MEDICARE PART Jun 18, PART B [id number] KALYANIDO PATIENT (WNR) (M) B 2017 VH81 2 UGLAS UNITED MEDICARE MCR(Jun 18 [id number] Luz MEEK PATIENT HEALTHCARE ADVANTAGE NR) 2021 37 0 [facility] (WNR) Selected Encounter This section includes the information on record at [place] for the Encounter. Date/Time Encounter Type Encounter Reason Provider Source Description Dec 12, 2021 MTMS BY PHARM CLINICAL PHARMACY ICD-10-CM J18.9 EVA GUZMAN 09:47 AM EST 15 MIN Pneumonia, TE A unspecified organism with Provider Comments: Pneumonia, unspecified organism IHE Encounter Template Text not used by [place] Assessments - Encounter Diagnoses This section includes the primary and secondary diagnoses documented for the Encounter. Date/Time Primary/Secondary Diagnosis Name Provider Source Diagnosis Dec 12, 2021 PRIMARY Pneumonia, MINGO GUZMAN 09:59 AM unspecified E A [facility] organism Plan of Treatment: Future Appointments [...] AM [facility] N[facility] Jan [facility], [facility] 02:00 PM AM[facility]ULAT[facility] - REHAB MEDICINE [facility] [place] [facility] Jan 10, 2022 11:30 AM [facility]INE [facility] Jan 24, 2022 08:00 AM AMBULATORY - RE[place] MEDICINE [place] [facility] Feb 21, 2022 10:00 AM [facility] Mar 21, 2022 10:30 AM AMBULATORY [...] data comes from all [place] treatment facilities. Test Date/Time Test Type Test Details Facility Name October 31, 2021 07:37 AM Consult Order [facility] Cons Train Controller's Choice November 15, 2021 10:37 AM Consult Order [facility]-PODIATRY Cons Train Controller's Choice Dec 06, 2021 12:52 PM Pharmacy [...] [place] OUTPATIENT Cons [facility] Train Controller's Choice Jan 15, 2022 10:08 PM Consult Order [facility]-PALLIATIVE CARE Cons Train Controller's Choice Lab Results: +/- 30 days of [...] AM [facility] Comment: Tests performed on PayTango (405) SN:[id number] Ordering Provid er: ISATU TODD Report Released Date/Time: Dec 11, 2021 07:42 AM Reporting Lab: [place] [facility] [address] [facility] [address] Performing Lab: [place] [facility] [address] [facility] [address] UREA NITROGEN 9 7-25 SODIUM 137 135-145 POTASSIUM 3.8 3.5-5.0 CHLORIDE 105 100-110 CARBON DIOXIDE 26 20-30 ANION GAP 6 4-16 GLUCOSE 102 H 65-100 CREATININE 0.64 0.5-1.5 CALCIUM 8.1 L 8.5-10.5 eGFR(CKD-EPI 2020) >90.0 >60 Dec 15, 2021 06:43 AM [place] [facility] CBC PROFILE Sp ecimen Type: BLOOD No comment enter ed. Ordering Provid er: ISATU TODD Report Released Date/Time: Dec 10, 2021 07:22 AM Reporting Lab: [place] [facility] [address] [facility] [address] Performing Lab: [place] [facility] [address] [facility] [address] WBC 5.7 4.5-11.0 RBC 4.22 L 4.23-5.66 [...] NRBC 0.00 0-0 Dec 14, 2021 [facility] CYTOGENETIC Specimen Type: ESOPHAGUS 02:59 PM [facility] FISH([facility]) Comment: ~For T est: CYTOGENETIC FISH([facility]) ~FISH HER 2 NUE, FFPE See full report in [place] Image display viewer/tab#LAB-Reference Ordering Provid er: NIURKA MILLER Report Released Date/Time: Dec 21, 2021 12:11 PM Reporting Lab: [facility] [address] [facility] [address] Performing Lab: [facility] CYTOGENETIC FISH([facility]) comment Dec 14, 2021 [place] GLU,BUN,CREAT,LYTES,CA Speci men Type: PLASMA 06:27 AM [facility] Comment: Tests performed on PayTango (405) SN:[id number] Ordering Provid er: ISATU TODD Report Released Date/Time: Dec 11, 2021 07:42 AM Reporting Lab: [facility] [address] [facility] [address] [facility]: [facility] [address] [facility] [address] UREA NITROGEN 10 7-25 SODIUM 137 135-145 [...] Reporting Lab: [facility] [address] [facility] [address] Performing Lab: [facility] [address] [facility] [address] WBC 6.0 4.5-11.0 RBC 4.29 4.23-5.66 HGB [...] AM [facility] Comment: Tests performed on PayTango (405) SN:[id number] Ordering Provid er: ISATU TODD Report Released Date/Time: Dec 11, 2021 07:42 AM Reporting Lab: [facility] [address] [facility] [address] Per[facility]: [facility] [address] [facility] [address] UREA NITROGEN 12 7-25 SODIUM 136 135-145 [...] AM Reporting Lab: [facility] [address] [facility] [address] Performing Lab: [facility] [address] [facility] [address] WBC 5.6 4.5-11.0 RBC 4.28 4.23-5.66 HGB [...] AM [facility] Comment: Tests performed on PayTango (405) SN:[id number] Ordering Provid er: ISATU TODD Report Released Date/Time: Dec 11, 2021 07:42 AM Reporting Lab: [facility] [address] [facility] [address] Per[facility]: [facility] [address] [facility] [address] UREA NITROGEN 11 7-25 SODIUM 139 135-145 POTASSIUM 4.1 3.5-5.0 CHLORIDE 107 100-110 CARBON DIOXIDE 24 20-30 ANION GAP 8 4-16 GLUCOSE 110 H 65-100 CREATININE 0.70 0.5-1.5 CALCIUM 8.3 L 8.5-10.5 eGFR(CKD-EPI 2020) >90.0 >60 Dec 12, 2021 06:21 AM [facility] CBC PROFILE Sp ecimen Type: BLOOD No comment enter ed. Ordering Provid er: ISATU TODD Report Released Date/Time: Dec 10, 2021 07:22 AM Reporting Lab: [facility] [address] [facility] [address] Performing Lab: [facility] [address] [facility] [address] WBC 5.5 4.5-11.0 RBC 4.37 4.23-5.66 HGB [...] Type: PLASMA Comment: Testin g Performed on PayTango (405) SN:[id number] Ordering Provid er: ISATU TODD Report Released Date/Time: Dec 12, 2021 08:24 AM Reporting Lab: [place] [facility] [address] [facility] [address] Performing Lab: [facility] [address] [facility] [address] MAGNESIUM 1.8 1.6-2.6 Dec 12, 2021 06:00 AM [place] [facility] PHOSPHORUS Sp ecimen Type: PLASMA Comment: Testin g Performed on PayTango (405) SN:[id number] Ordering Provid er: ISATU TODD Report Released Date/Time: Dec 12, 2021 08:24 AM Reporting Lab: [place] [facility] [address] [facility] [address] Performing Lab: [place] [facility] [address] [facility] [address] PHOSPHORUS 3.1 2.5-5.0 Dec 11, 2021 06:15 AM [place] [facility] ELECTROLYTES Sp ecimen Type: PLASMA Comment: Tests performed on PayTango (405) SN:[id number] Ordering Provid er: ISATU TODD Report Released Date/Time: Dec 10, 2021 07:22 AM Reporting Lab: [place] [facility] [address] [facility] [address] Performing Lab: [facility] [address] [facility] [address] SODIUM 137 135-145 POTASSIUM 4.3 3.5-5.0 CHLORIDE 108 100-110 CARBON DIOXIDE 20 20-30 ANION GAP 9 4-16 Dec 11, 2021 06:15 AM [facility] CBC PROFILE Sp ecimen Type: BLOOD Comment: Result s checked Ordering Provid er: ISATU TODD Report Released Date/Time: Dec 10, 2021 07:22 AM Reporting Lab: [facility] [address] [facility] [address] Performing Lab: [facility] [address] [facility] [address] WBC 5.8 4.5-11.0 RBC 4.37 4.23-5.66 HGB [...] ecimen Type: PLASMA Comment: Tests performed on PayTango (405) SN:[id number] Results checked Ordering Provid er: ISATU TODD Report Released Date/Time: Dec 11, 2021 07:44 AM Reporting Lab: [place] [facility] [address] [place] [facility] [place] [address] Performing Lab: [place] [facility] [address] [facility] [place] [address] PHOSPHORUS 3.0 2.5-5.0 Dec 10, 2021 08:05 AM [place] [facility] MAGNESIUM Sp ecimen Type: PLASMA Comment: [place] [id number] on Dec 10, 2021@08:31 Tests performed on Pham Profile Mill Operator Tape Control (405) SN:[id number] Ordering Provid er: ISATU TODD Report Released Date/Time: Dec 10, 2021 07:22 AM Reporting Lab: [place] [facility] [address] [facility] [place] [address] Performing Lab: [place] [facility] [address] [facility] [place] [address] MAGNESIUM 1.7 1.6-2.6 Dec 10, 2021 08:05 AM [place] UREA NITROGEN Specimen Type: PLASMA [facility] Comment: [place] [id number] on Dec 10, 2021@08:31 Tests performed on Pham Profile Mill Operator Tape Control (405) SN:[id number] Ordering Provid er: ISATU TODD Report Released Date/Time: Dec 10, 2021 07:22 AM Reporting Lab: [place] [facility] [address] [place] [facility] [place] [address] Performing Lab: [place] [facility] [address] [facility] [place] [address] UREA NITROGEN 8 7-25 Dec 10, 2021 08:05 AM [place] [facility] PHOSPHORUS Sp ecimen Type: PLASMA Comment: [place] [id number] on Dec 10, 2021@08:31 Tests performed on Pham Profile Mill Operator Tape Control (405) SN:[id number] Ordering Provid er: ISATU TODD Report Released Date/Time: Dec 10, 2021 07:22 AM Reporting Lab: [place] [facility] [address] [place] [facility] [place] [address] Performing Lab: [place] [facility] [address] [facility] [place] [address] PHOSPHORUS 1.8 L 2.5-5.0 Dec 10, 2021 08:05 AM [place] [facility] CALCIUM Sp ecimen Type: PLASMA Comment: [place] [id number] on Dec 10, 2021@08:31 Tests performed on PayTango (405) SN:[id number] Ordering Provid er: ISATU TODD Report Released Date/Time: Dec 10, 2021 07:22 AM Reporting Lab: [place] [facility] [address] [facility] [place] [address] Performing Lab: [place] [facility] [address] [facility] [place] [address] CALCIUM 8.3 L 8.5-10.5 Dec 10, 2021 08:05 AM [place] [facility] ELECTROLYTES Sp ecimen Type: PLASMA Comment: [place] [id number] on Dec 10, 2021@08:31 Tests performed on PayTango (405) SN:[id number] Ordering Provid er: ISATU TODD Report Released Date/Time: Dec 10, 2021 07:22 AM Reporting Lab: [place] [facility] [address] [facility] [place] [address] Performing Lab: [place] [facility] [address] [facility] [place] [address] SODIUM 139 135-145 POTASSIUM 3.7 3.5-5.0 CHLORIDE 107 100-110 CARBON DIOXIDE 24 20-30 ANION GAP 8 4-16 Dec 10, 2021 08:05 [place] CREATININE WITH eGFR Specime n Type: PLASMA AM [facility] PANEL Comment: Added by Ligia on Dec 10, 2021@08:31 Tests performed on PayTango (405) SN:[id number] Ordering Provid er: ISATU TODD Report Released Date/Time: Dec 10, 2021 07:22 AM Reporting Lab: [place] [facility] [address] [facility] [place] [address] Performing Lab: [place] [facility] [address] [facility] [place] [address] CREATININE 0.78 0.5-1.5 eGFR(CKD-EPI 2020) >90.0 >60 Dec 10, 2021 08:05 AM [place] [facility] GLUCOSE Sp ecimen Type: PLASMA Comment: [place] [id number] on Dec 10, 2021@08:31 Tests performed on Pham PrivacyProtector (405) SN:[id number] Ordering Provid er: ISATU TODD Report Released Date/Time: Dec 10, 2021 07:22 AM Reporting Lab: [facility] [address] [facility] [address] Performing Lab: [facility] [address] [facility] [address] GLUCOSE 144 H 65-100 Dec 10, 2021 08:05 AM [facility] CBC PROFILE Sp ecimen Type: BLOOD No comment enter ed. Ordering Provid er: ISATU TODD Report Released Date/Time: Dec 10, 2021 07:22 AM Reporting Lab: [place] [facility] [address] [facility] [address] Performing Lab: [facility] [address] [facility] [address] WBC 7.0 4.5-11.0 RBC 4.54 4.23-5.66 HGB [...] 0.00 0-0 Dec 09, 2021 06:46 AM [facility] MAGNESIUM Sp ecimen Type: PLASMA Comment: Tests performed on PayTango (405) SN:[id number] Ordering Provid er: ISATU TODD Report Released Date/Time: Dec 08, 2021 10:23 AM Reporting Lab: [facility] [address] [facility] [address] Performing Lab: [place] [facility] [address] [facility] [address] MAGNESIUM 1.6 1.6-2.6 Dec 09, 2021 [place] P4 GLU,BUN,CREAT,LYTES,CA Speci men Type: PLASMA 06:46 AM [facility] Comment: Tests performed on PayTango (405) SN:[id number] Ordering Provid er: ISATU TODD Report Released Date/Time: Dec 08, 2021 05:00 PM Reporting Lab: [place] [facility] [address] [facility] [address] Performing Lab: [facility] [address] [facility] [address] UREA NITROGEN 6 L 7-25 SODIUM 134 L 135-145 POTASSIUM 3.7 3.5-5.0 CHLORIDE 103 100-110 CARBON DIOXIDE 23 20-30 ANION GAP 8 4-16 GLUCOSE 112 H 65-100 CREATININE 0.70 0.5-1.5 CALCIUM 8.1 L 8.5-10.5 eGFR(CKD-EPI 2020) >90.0 >60 Dec 09, 2021 06:46 AM [place] [facility] CBC PROFILE Sp ecimen Type: BLOOD No comment enter ed. Ordering Provid er: ISATU TODD Report Released Date/Time: Dec 08, 2021 05:00 PM Reporting Lab: [place] [facility] [address] [facility] [address] Performing Lab: [place] [facility] [address] [facility] [address] WBC 7.1 4.5-11.0 RBC 4.40 4.23-5.66 HGB [...] Type: PLASMA Comment: Testin g Performed on PayTango (405) SN:[id number] Ordering Provid er: ISATU TODD Report Released Date/Time: Dec 07, 2021 10:32 AM Reporting Lab: [facility] [address] [facility] [address] Performing Lab: [facility] [address] [facility] [address] MAGNESIUM 1.5 L 1.6-2.6 Dec 08, 2021 [place] P4 GLU,BUN,CREAT,LYTES,CA Speci men Type: PLASMA 06:39 AM [facility] Comment: Testin g Performed on PayTango (405) SN:[id number] Ordering Provid er: ISATU TODD Report Released Date/Time: Dec 07, 2021 10:32 AM Reporting Lab: [facility] [address] [facility] [address] Performing Lab: [facility] [address] [facility] [address] UREA NITROGEN 6 L 7-25 SODIUM 136 135-145 POTASSIUM 3.3 L 3.5-5.0 CHLORIDE 104 100-110 CARBON DIOXIDE 22 20-30 ANION GAP 10 4-16 GLUCOSE 133 H 65-100 CREATININE 0.76 0.5-1.5 CALCIUM 8.4 L 8.5-10.5 eGFR(CKD-EPI 2020) >90.0 >60 Dec 08, 2021 06:39 AM [facility] CBC PROFILE Sp ecimen Type: BLOOD No comment enter ed. Ordering Provid er: ISATU TODD Report Released Date/Time: Dec 07, 2021 10:32 AM Reporting Lab: [facility] [address] [facility] [address] Performing Lab: [facility] [address] [facility] [address] WBC 8.4 4.5-11.0 RBC 4.75 4.23-5.66 HGB [...] NRBC 0.00 0-0 Dec 07, 2021 [facility] P4 GLU,BUN,CREAT,LYTES,CA Speci men Type: PLASMA 06:42 AM [facility] Comment: Tests performed on PayTango (405 SN:[id number] Ordering Provid er: PORFIRIO WALTERS Report Released Date/Time: Dec 06, 2021 06:57 PM Reporting Lab: [facility] [address] [facility] [address] Performing Lab: [facility] [address] [facility] [address] UREA NITROGEN 9 7-25 SODIUM 135 135-145 POTASSIUM 3.5 3.5-5.0 CHLORIDE 103 100-110 CARBON DIOXIDE 22 20-30 ANION GAP 10 4-16 GLUCOSE 92 65-100 CREATININE 0.73 0.5-1.5 CALCIUM 8.0 L 8.5-10.5 eGFR(CKD-EPI 2020) >90.0 >60 Dec 07, 2021 06:42 [facility] Specimen Typ e: PLASMA AM [facility] Comment: Tests performed on PayTango (405) SN:[id number] Ordering Provid er: PORFIRIO WALTERS Report Released Date/Time: Dec 06, 2021 06:57 PM Reporting Lab: [facility] [address] [facility] [address] Per[facility] Lab: [facility] [address] [facility] [address] PROTEIN, TOTAL 5.7 L 6.0-8.5 ALBUMIN 2.4 L 3.2-5.0 BILIRUBIN, TOTAL 0.4 0.2-1.2 ALKALINE PHOSPHATASE 109 40-150 ALT(SGPT) 10 7-52 AST(SGOT) 15 5-34 FIB-4 SCORE 1.92 <2.67 Dec 07, 2021 06:42 AM [facility] CBC PROFILE Specimen Type: BLOOD [facility] No comment enter ed. Ordering Provid er: PORFIRIO WALTERS Report Released Date/Time: Dec 06, 2021 06:57 PM Reporting Lab: [facility] [address] [facility] [address] Performing Lab: [facility] [address] [facility] [address] WBC 5.7 4.5-11.0 RBC 4.15 L 4.23-5.66 [...] [facility] %) AUTOMATED Comment: Tests performed on PayTango (405) SN:[id number] Ordering Provid er: ISATU TODD Report Released Date/Time: Dec 07, 2021 10:28 AM Reporting Lab: [place] [facility] [address] [facility] [address] Performing Lab: [place] [facility] [address] [facility] [address] RETICULOCYTES (%) AUTOMATED 1.23 0. 6-2.0 RETICULOCYTES (ABS) AUTOMATED 0.052 0.030-0.090 Dec 06, 2021 09:45 [place] MRSA SURVL NARES Specimen Ty pe: NARES PM [facility] DNA No comment enter ed. Ordering Provid er: ALVARO VARGHESE Report Released Date/Time: Dec 07, 2021 02:20 AM Reporting Lab: [place] [facility] [address] [facility] [address] Performing Lab: [place] [facility] [address] [facility] [address] MRSA SURVL NARES DNA NEGATIVE NEGATIVE Dec 06, 2021 06:00 [place] URINALYSIS W/REFLEX TO Speci men Type: URINE PM [facility] CULTURE No comment enter ed. Ordering Provid er: JELANI SÁNCHEZ Report Released Date/Time: Dec 06, 2021 11:57 AM Reporting Lab: [facility] [address] [facility] [address] Performing Lab: [facility] [address] [facility] [address] URINE COLOR Arlin YELLOW SPECIFIC GRAVITY 1.029 [...] 21, [place] Comment: https://www.cdc.gov/coronavirus/2019-ncov/cases-updates/variant- surveillance/variant-info.html The Anzu SARS CoV 2 [employer] Research Assay-GX is a next-generation sequencing (NGS) assa 2021 [facility] SEQUENCING y that determine s the complete genome sequence of the SARS-CoV-2 virus. The assay contains variant-tolerant primers to broaden and improve the coverage for variant detection and increase the sensitivity 12:00 [facility] PNL() of the panel to enable detection from lower viral titer samples. The assay is run on the Synthego Sequencer, which performs automated library preparation, sequencing, analysis, and reporting. PM The sequence an alysis includes determination of viral phylogenetic lineage by comparison to the reference strain Wuhan-Hu-1, GenBank: [id number]. Sequence determination may not be possible owing [...] 06, 2021 01:13 PM Reporting Lab: [facility] [address] [facility] [address] Performing Lab: [facility] [address] [address] SARS-CoV-2 CLADE() 22C (OMICRON) SARS-CoV-2 LINEAGE() BA.2.12.1 Dec 06, 2021 12:00 [facility] COVID-19 AG SCREEN Specimen Type: NASAL CAVITY PM [facility] PANEL BINAX(405) Comment: Testi ng Performed By: Mkie Briscoe Ordering Provid er: JELANI SÁNCHEZ Report Released Date/Time: Dec 08, 2021 08:23 AM Reporting Lab: [facility] [address] [facility] [address] Performing Lab: [facility] [address] [facility] [address] COVID-19 AG SCRN(wrj BINAX) POSITIVE HH NE G Dec 06, 2021 12:00 PM [facility] LIVER PROFILE Sp ecimen Type: PLASMA Comment: Testin g Performed on Pham Profile Mill Operator Tape Control (405) SN:[id number] Ordering Provid er: JELANI SÁNCHEZ Report Released Date/Time: Dec 06, 2021 11:57 AM Reporting Lab: [facility] [address] [facility] [address] Performing Lab: [facility] [address] [facility] [address] PROTEIN, TOTAL 6.6 6.0-8.5 ALBUMIN 2.8 L 3.2-5.0 BILIRUBIN, TOTAL 0.6 0.2-1.2 ALKALINE PHOSPHATASE 134 40-150 ALT(SGPT) 13 7-52 AST(SGOT) 18 5-34 FIB-4 SCORE 1.94 <2.67 Dec 06, 2021 12:00 PM [facility] TROPONIN II Sp ecimen Type: PLASMA Comment: Tests performed on PayTango (405) SN:[id number] Ordering Provid er: JELANI SÁNCHEZ Report Released Date/Time: Dec 06, 2021 11:57 AM Reporting Lab: [facility] [address] [facility] [address] Performing Lab: [facility] [address] [facility] [address] TROPONIN II 0.03 0.00-0.29 Dec 06, 2021 [facility] GLU,BUN,CREAT,LYTES,CA Speci men Type: PLASMA 12:00 PM [facility] Comment: Testin g Performed on PayTango (405) SN:[id number] Ordering Provid er: JELANI SÁNCHEZ Report Released Date/Time: Dec 06, 2021 11:57 AM Reporting Lab: [facility] [address] [facility] [address] Performing Lab: [facility] [address] [facility] [address] UREA NITROGEN 13 7-25 SODIUM 138 135-145 POTASSIUM 3.8 3.5-5.0 CHLORIDE 103 100-110 CARBON DIOXIDE 23 20-30 ANION GAP 12 4-16 GLUCOSE 105 H 65-100 CREATININE 0.90 0.5-1.5 CALCIUM 8.7 8.5-10.5 eGFR(CKD-EPI 2020) >90.0 >60 Dec 06, 2021 12:00 PM [facility] BNP(P) Sp ecimen Type: PLASMA Comment: Tests performed on [employer] (405) [id number] Ordering Provid er: JELANI SÁNCHEZ Report Released Date/Time: Dec 06, 2021 11:57 AM Reporting Lab: [facility] [address] [facility] [address] Performing Lab: [facility] [address] [facility] [address] BNP(P) 224.8 H 10-100 Dec 06, 2021 [facility] COVID-19+FLU/RSV DIAGNOSTIC Spe cimen Type: NASOPHARYNX 12:00 PM [facility] PANEL(405) Comment: Tests performed on [employer] Gen[employer] (405) Critical results called to and read back by: ALESHIA WILKINSON RN 12/06/21 @ 1312 Ordering Provid er: JELANI SÁNCHEZ Report Released Date/Time: Dec 06, 2021 11:57 AM Reporting Lab: [facility] [address] [facility] [address] Performing Lab: [facility] [address] [facility] [address] FLU A(PCR) NEGATIVE NEGATIVE FLU B(PCR) NEGATIVE NEGATIVE RSV(PCR) NEGATIVE NEGATIVE COVID-19([id number]) DETECTED HH NO T DETECTED Dec 06, 2021 12:00 PM [facility] CBC PROFILE Sp ecimen Type: BLOOD No comment enter ed. Ordering Provid er: JELANI SÁNCHEZ Report Released Date/Time: Dec 06, 2021 11:57 AM Reporting Lab: [facility] [address] [facility] [address] Performing Lab: [facility] [address] [facility] [address] WBC 7.2 4.5-11.0 RBC 4.86 4.23-5.66 HGB [...] dy Source Pressure Rate Mass Index Dec 12 98.3 F 95 121/74 18 /min 96 % 0 WHITE 2021 07:43 /min mm[Hg] R[facility] PM [facility] Dec 12, 0 WHITE 2021 07:37 RIVER PM [facility] Dec 12, 0 WHITE 2021 02:17 RIVER PM [facility] Dec 12, 98 F 82 127/76 18 /min 97 % 2021 02:01 /min mm[Hg] RIVER PM [facility] Dec 12, 0 2021 10:59 RIVER AM [facility] Social History: Smoking Status (Most current) [...] took place. Date/Time Smoking Status/Tobacco Use Comment [facility] Apr 01, 2020 01:16 PM QUIT [...] [facility] May 23, 2016 06:57 PM QUIT TOBACCO USE > 7 YEARS AGO CAREY DOYEL [facility] May 19, 2016 03:55 PM QUIT TOBACCO USE IN PAST YEAR CAREY DOYLE [facility] May 19, 2016 10:29 AM QUIT TOBACCO USE 1-7 YEARS AGO CAREY DOYLE [facility] May 01, 2016 07:26 PM QUIT TOBACCO USE IN PAST YEAR CAREY DOYLE [facility] May 01, 2016 03:11 PM QUIT TOBACCO USE IN PAST YEAR CAREY DOYLE [facility] May 01, 2016 11:19 AM QUIT TOBACCO USE IN PAST YEAR CAREY DOYLE [facility] Mar 16, 2016 12:50 PM V1-PT DECLINES REF TO TOBACCO CAREY DOYLE [facility] CESS PRGM Mar 16, 2016 12:50 PM V1-PT THINKING ABOUT QUIT CAREY DOYLE [facility] TOBACCO USE Aug 12, 2015 08:48 AM CURRENT SMOKER CAREY Yates [facility] Radiology Reports: +/- 30 days of [...] W/WO CONTRAST: MARYELLEN LONG LUCAS LARES N [id number] -1950 [facility] Exm Date: DEC 13, 2021@12:57 Req Phys: ISATU TODD Loc: OP Unknown/0 12-15-2021@13:20 Img Loc: MRI IMAGING (OOS) [facility] (Case [id number] COMPLETE) MRI ABDOMEN W/WO CONTRAST (M WA Detailed) CPT:67019 Reason for Study: further characterization of a [...] new lyphadenopathy REQUESTING MD: Isatu Todd PAGER: [phone] PHONE: [phone] Weight: 232.2 lb [105.32 kg] (12/12/2021 05:00) [...] patient will need to arrange for a petroleum transport driver to take him/her home after the [...] 15, 2021 Date Verified: DEC 15, 2021 Order Entry Technician E-Sig:/ES/MARYELLEN LONG Report: MRI ABDOMEN W/WO [...] MALIGNANCY Primary Interpreting Staff: Staff AMELIA THOMAS (Order Entry Technician) / Dec 10, 2021 09:[address] ABDOMEN & PELVIS: RADIOLOGY,OUTSIDE [facility] [place] LUCAS MEEK N [id number] -1950 M [facility] Ex Date: DEC 10, 2021@09:30 Req Phys: ISATU TODD Loc: [facility]/12-10@10:57 [facility] [place]: CT SCAN (OOS) Service: [facility] (Case [id number] COMPLETE) CT ABD & PELVIS WITHOUT CONT RAST (CT Detailed) CPT:15758 Reason for Study: 71 yo male with [...] RADIOLOGY [phone] to speak to the appropriate psychiatric technician assistant. Report Status: Verified Date Reported: DEC 10, 2021 Date Verified: DEC 10, 2021 Order Entry Technician E-Sig: Report: EXAM: CT abdomen and [...] ph nodes. READING PHYSICIAN: Ramone Munoz D.O. -[id number] [id number] 12/10/2021 10:55 EDT [facility] [employer] [phone] (For Medical Practitioner Use Only ) [address], [address] [facility] [address], [address] [place] [address] Attention Patients / Veterans: If you have ques tions or concerns about these test results, please contact your o rdering provider or primary care team. Primary Diagnostic Code: SIGNIFICANT ABNORMALIT Y, ATTN NEEDED Primary Interpreting Staff: RADIOLOGY,OUTSIDE SERVICE, Staff Physician / Dec 09, 2021 07:34 AM BASPrincess (MODIFIED): JESSIE CHENEY [facility] [place] LUCAS MEEK N [id number] -1950 [facility] Exm Date: DEC 09, 2021@07:34 Req Phys: ISATU TODD Loc: 1S MED/12-09@11:26 Img Loc: XRAY (OOS) Service: [facility] MEDICINE (Case [id number] COMPLETE) BASPrincess (MODIFIED) (EUNICE stephenson) CPT:50503 Contrast Media : Barium Reason for Study: dysphagia ?esophageal spasm Clinical History: Report Status: Verified Date Reported: DEC 09, 2021 Date Verified: DEC 09, 2021 Order Entry Technician E-Sig:/ES/JESSIE CHENEY Report: BASPrincess (MODIFIED) , 12/09/2021 [...] REQUIRED Primary Interpreting Staff: JESSIE CHENEY, RADIOLOGIST (Order Entry Technician) /TLC Dec 06, 2021 12:[address] CHEST (INCLUDES ADRENALS): [facility]ESS[facility]ENEY [facility] [id number] -1950 [facility] Exm Date: DEC 06, 2021@12:59 Req Phys: JELANI SÁNCHEZ Pat Loc: [facility] ED DAYS M 1RD (Req'g Loc) Img Loc: CT SCAN (OOS) Service: Unknown (Case [id number] COMPLETE) CT THORAX W/O CONT (CT Detai led) CPT:20943 Reason for Study: Opacification right chest Clinical History: No contrast allergy BUN: 13 (12/06/21 12:00) CREATI: 0.90 (12/06/21 12:00) eGFR 05/16/21 09:43 52 L Weight: 232.6 lb [105.51 kg] (12/06/2021 11:40) BODY MASS INDEX - NO HEIGHTS FOUND Pager number: [phone] STAT orders MUST be called t o RADIOLOGY [phone] to speak to the appropriate psychiatric technician assistant. Indications - Other: Opacification right chest, covid positive, lung cancer histo Report Status: Verified Date Reported: DEC 06, 2021 Date Verified: DEC 06, 2021 Order Entry Technician E-Sig:/ES/JESSIE CHENEY Report: CT THORAX W/O [...] REQUIRED Primary Interpreting Staff: JESSIE CHENEY, RADIOLOGIST (Order Entry Technician) Primary Interpreting Resident: PRINCE CHAMPION, Resident /BR Dec 06, 2021 11:58 AM CHEST SINGLE VIEW: JESSIE CHENEY DOUGLAS N [id number] -1950 M [facility] Exm Date: DEC 06, 2021@11:58 Req Phys: JELANI SÁNCHEZ Loc: [facility] ED DAYS M 1RD (Req'g Loc) Img Loc: XRAY (OOS) Service: Unknown (Case [id number] COMPLETE) CHEST SINGLE VIEW (RAD Detai led) CPT:61539 Proc Modifiers : PORTABLE EXAM Reason for Study: SOB, home covid test positive Clinical History: Report Status: Verified Date Reported: DEC 06, 2021 Date Verified: DEC 06, 2021 Order Entry Technician E-Sig:/ES/JESSIE CHENEY Report: Exam type: Chest [...] REQUIRED Primary Interpreting Staff: JESSIE CHENEY, RADIOLOGIST (Order Entry Technician) /TLC Pathology Reports: +/- 30 days [...] AM LR SURGICAL PATHOLOGY REPORT: STEFANY MILLER [place] LOCAL TITLE: LR SURGICAL PATHOLOGY REPORT [facility] STANDARD TITLE: PATHOLOGY REPORT DATE OF NOTE: JAN 03, 2022@10:28:01 ENTRY DATE: JAN 03, 2022@10:28:01 AUTHOR: NIURKA MILLER EXP COSIGNER: URGENCY: STATUS: COMPLETED $APHDR Reporting Lab: [facility] [CLIA# [id number]] [address] [place] [address] - - - - - - [...] automatically d ocumented from SURGERY package case #[id number] Field (#32) PRINCIPAL PRE-OP DIAGNOSIS, (#.72) OTHER [...] automatically d ocumented from SURGERY package case #[id number] Field (#34) PRINCIPAL POST-OP DIAG, (#.74) OTHER POSTOP DIAGS Esophageal cancer Surgeon/physician: IMCHELLE CALERO Attending Surgeon: Kyle Saenz MD =-=-=-=-=-=-=-=-=-=-=-=-=-=- [...] Label: Lucas Meek Paperwork: Lucas Meek Cassette: [id number];..;KALYANI;.;405;[id number] Specimen is labeled: ES bx Received in formalin are several pieces of pale boyd and brown tissue, 1.2 x 0.7 cm in aggregate. Submitted entirely in 1 cassette [id number];..;KALYANI;.;405;[id number] SAW 12/15/2021 Microscopic exam: *+* MODIFIED REPORT *+* (Last modified: JAN 03, 2022@09:30:20 typed by NIURKA WADDELL) DIAGNOSIS: A. 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 Kendell long. TIARA Coombs was notified on 12/21/21. Modified on 01/03/22 to include report from [facility] stating that tumor is NEGATIVE for her2/ matheus amplification. The attending pathologist who signature mansoor ears on this report has reviewed all diagnostic slides and has edited t he gross and/or microscopic portion of this report in rendering the final pathologic diagnosis. [address] [place] [address] CPT: 66222 /emely/ NIURKA Yeung MD Signed Jan 03, 2022@10:28 Performing Laboratory: Surgical Pathology Report Performed By: [facility] [CLIA# [id number]] [address] [place] [facility] [place] [address] $FTR - - - - - [...] - - LUCAS MEEK STANDARD FORM 515 ID:[id number] SEX:M :1950 AGE: 71 LOC: SDM END PCP: Isatu Todd /emely/ NIURKA Yeung MD Signed: 01/03/2022 10:28 Dec 21, 2021 11:46 AM LR SURGICAL PATHOLOGY REPORT: STEFANY MILLER [facility] LOCAL TITLE: LR SURGICAL PATHOLOGY REPORT [facility] STANDARD TITLE: PATHOLOGY REPORT DATE OF NOTE: DEC 21, 2021@11:46:59 ENTRY DATE: DEC 21, 2021@11:46:59 AUTHOR: NIURKA MILLER EXP COSIGNER: URGENCY: STATUS: COMPLETED $APHDR Reporting Lab: [facility] [CLIA# [id number]] [address] [place] [facility] [place] [address] - - - - - - [...] automatically d ocumented from SURGERY package case #[id number] Field (#32) PRINCIPAL PRE-OP DIAGNOSIS, (#.72) OTHER [...] automatically d ocumented from SURGERY package case #[id number] Field (#34) PRINCIPAL POST-OP DIAG, (#.74) OTHER [...] Label: Lucas Meek Paperwork: Lucas Meek Cassette: [id number];..;MEEK;.;504;[id number] Specimen is labeled: ES bx Received in formalin are several pieces of pale boyd and brown tissue, 1.2 x 0.7 cm in aggregate. Submitted entirely in 1 cassette [id number];..;KALYANI;.;405;[id number] SAW 12/15/2021 Microscopic exam: DIAGNOSIS: A. 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 Kendell long. TIARA Coombs was notified on 12/21/21. The attending pathologist who signature mansoor ears on this report has reviewed all diagnostic slides and has edited t he gross and/or microscopic portion of this report in rendering the [place] [address] CPT: 25221 /emely/ NIURKA Yeung MD Signed Dec 21, 2021@11:46 Performing Laboratory: Surgical Pathology Report Performed By: CAREY DOYLE [facility] [CLIA# [id number]] [address] [place] [address] $FTR - - - - - [...] - - LUCAS MEEK STANDARD FORM 515 ID:[id number] SEX:M :1950 AGE: 71 LOC: SDM END PCP: Isatu Todd /charmaine Yeung MD Signed: 12/21/2021 11:46 Dec 06, 2021 03:30 PM LR MICROBIOLOGY REPORT: LILLY BANG VIVEK [facility] Reporting Lab: [facility] [CLIA# [id number]] [address] [place] [address] Accession [UID]: [id number] [[id number]] Receiv ed: Dec 06, 2021@16:14 Collection sample: BLOOD CUL T BOTTLE(NIRMAL/AERO)Collection date: Dec 06, 2021 15:30 Site/Specimen: BLOOD Provider: JELANI SÁNCHEZ Comment on specimen: LAC Test(s) ordered: BLOOD CULTURE ANAEROBI C....... completed: Dec 12, 2021 06:18 * BACTERIOLOGY FINAL REPORT => Dec 12, 2021 06:1 8 TECH CODE: [id number] Bacteriology Remark(s): NO GROWTH IN 5 DAYS =--=--=--=--=--=--=--=--=--=--=--=--=--= --=--=--=--=--=--=--=--=--=--=--=--=-- Performing Laboratory: Bacteriology Report Performed By: [facility] [CLIA# [id number]] [address] [place] [address] Dec 06, 2021 03:30 PM LR MICROBIOLOGY REPORT: [facility] Reporting Lab: [facility] [CLIA# [id number]] [address] [place] [address] Accession [UID]: [id number] [[id number]] Receiv ed: Dec 06, 2021@16:14 Collection sample: BLOOD CUL T BOTTLE(NIRMAL/AERO)Collection date: Dec 06, 2021 15:30 Site/Specimen: BLOOD Provider: JELANI SÁNCHEZ Comment on specimen: LAC Test(s) ordered: BLOOD CULTURE AEROBIC. ........ completed: Dec 12, 2021 06:17 * BACTERIOLOGY FINAL REPORT => Dec 12, 2021 06:1 7 TECH CODE: [id number] Bacteriology Remark(s): NO GROWTH IN 5 DAYS =--=--=--=--=--=--=--=--=--=--=--=--=--= --=--=--=--=--=--=--=--=--=--=--=--=-- Performing Laboratory: Bacteriology Report Performed By: [facility] [CLIA# [id number]] [address] [place] [facility] [address] Encounter Notes: All associated encounter notes This section contains the clinical notes associated to the Encounter. Date/Time Encounter Note(s) Provider Source Dec 12, 2021 09:47 PHARMACY INPATIENT NOTE: MIKAEL GUZMAN LOCAL TITLE: PHARMACY INPATIENT ANTIBIOTIC [facility] STANDARD TITLE: PHARMACY INPATIENT NOTE DATE OF NOTE: DEC 12, 2021@09:47 ENTRY DATE: DEC 12, 2021@09:48 AUTHOR: MIKAEL GUZMAN EXP COSIGNER: URGENCY: STATUS: COMPLETED PHARMACY INPATIENT ANTIBIOTIC MONITORING Renal/hepatic monitoring for antimicrobials precribed in hospitalized patients. Add'l work-up and impressions will be provided a t a later time as needed. In short, Mr. Meek is a 71 yo M with concerns for COVID-19 and aspiration PNA and started on antivirals (completed) and antibiotics. Objective: Antibiotic allergies: None Active Inpatient Medications (excluding Supplies ): Active [...] 72 in [182.9 cm] (03/05/2019 11:48) Weight: 232.2 lb [105.32 kg] (12/12/2021 05:00) SCr: CREATI: 0.70 (12/12/21 06:00) Est CrCl (AdBW=88.69kg): 86 ml/min (SCr rounded to 1 for >65yo) LFTs: Collection DT Specimen Test Name Result Units Re f Range 12/07/2021 06:00 PLASMA!! ALT(SGPT) 10 U/L 7 - 5 2 12/07/2021 06:00 PLASMA!! AST(SGOT) 15 U/L 5 - 3 4 IMPRESSION In short, Mr. Meek is a 71 yo M with concerns for COVID-19 and aspiration PNA and started on antivirals (completed) and antibiotics. Completing his 7-day antibiotic course today. Dose of amoxicillin/clavulanate appropriate per kidney function. LFTs last measured on 12/07 (prior to initiation of amoxicillin/clavulanate). With prolonged therapy, abe stephenson rec add'l hepatic function monitoring; in patients with hepatic impairment, monitor liver function tests at regular intervals. Since pt does not meet either criteria, okay to proceed and d/c amoxicillin/clavulanate today. [ ] Dose adjustment/optimization [x] No changes; monitor (stop time tonight). Add'l work-up and impressions will be provided a t a later time as needed. If you have any additional questions, please contact [phone] for [facility] Pharmacy. Thank you! /emely/ MIKAEL GUZMAN CLINICAL PHARMACIST Signed: 12/12/2021 09:59
--- OUTSIDE RECORDS SUMMARY | 2022-01-19 09:23 | XMS_ITS ---
DAILY HOSPITALIZATION DATA [facility]Y DOYLE [facility] Encounter Summary Created on:December 12, 2021 Patient:LUCAS MEEK Sex:Male :[address] [facility] Address [address] [place] [id number] Support Name Relationship Address Phone YUSRA MEEK Unavailable [address] [place] [address] YUSRA MEEK Unavailable [address] [place] [facility] [place], [place] [address] CLAY MOSLEY Unavailable Unavailable SJ SANTACRUZ Unavailable [...] MEDICARE MEDICARE PART Jun 18, PART A [id number] DO KALYANI PATIENT (WNR) (M) A 2016 13A 1 UGLAS MEDICARE MEDICARE PART Jun 18, PART B [id number] DO KALYANI PATIENT (WNR) (M) B 2016 13A 1 [place]AS MEDICARE MEDICARE PART Jun 18, PART A [id number] KALYANIDO PATIENT (WNR) (M) A 2017 VH81 2 U[place]AS MEDICARE MEDICARE PART Jun 18, PART B [id number] DO KALYANI PATIENT (WNR) (M) B 2017 VH81 2 U[place]AS UNITED MEDICARE MCR(Jun [id number] Luz MEEK PATIENT HEALTHCARE ADVANTAGE NR) 2021 37 0 [facility] (WNR) Selected Encounter This section includes the information on record at [place] for the Encounter. Date/Time Encounter Type Encounter Description Reason Provider Source Dec 12, 2021 07:06 Inpatient Visit DAILY HOSPITALIZATION DATA AM [facility] Encounter Template Text not used by [place] [...] AMBULATORY - NONE [place] [facility] Jan 06, 2022 02:00 PM [place] [facility] Jan 10, 2022 11:30 AM AMBULATORY - MEDICINE [facility] Jan 24, 2022 08:00 [place] [facility] Feb 21, 2022 10:00 AM [place] [facility] Mar 21, 2022 [...] The data comes from all [place] treatment [facility]. Test Date/Time Test Type Test Details Facility Name October 31, 2021 07:37 AM Consult Order [facility]-EGD [facility] Cons Cosmetic [facility]ist's Choice November 15, 2021 10:37 AM Consult Order [facility] CARE-PODIATRY Cons Cosmetic Dentist's Choice Dec 06, 2021 12:52 PM Pharmacy [...] OUTPATIENT Cons [facility] Cosmetic Dentist's Choice Jan 15, 2022 10:08 PM Consult Order [facility] CARE-PALLIATIVE CARE Cons Cosmetic Dentist's Choice Lab Results: +/- 30 days of [...] Reference Range Comment Dec 15, 2021 [place] P4 GLU,BUN,CREAT,LYTES,CA Speci men Type: PLASMA 06:43 AM [facility] Comment: Tests performed on [employer] (405) SN:[id number] Ordering Provid er: ISATU TODD Report Released Date/Time: Dec 11, 2021 07:42 AM Reporting Lab: [facility] T [facility] [address] [facility] [address] Performing Lab: [facility] [address] [facility] [address] UREA NITROGEN 9 7-25 SODIUM 137 135-145 [...] T [facility] [address] [facility] [address] Performing Lab: [facility] [address] [facility] [address] WBC 5.7 4.5-11.0 RBC 4.22 L 4.23-5.66 [...] 2 NUE, FFPE See full report in 25eight Image display viewer/tab#LAB-Reference Ordering Provid er: NIURKA MILLER Report Released Date/Time: Dec 21, 2021 12:11 PM Reporting Lab: [facility] [address] [facility] [address] Performing Lab: [facility] CYTOGENETIC FISH([facility] comment Dec 14, 2021 [facility] P4 GLU,BUN,CREAT,LYTES,CA Speci men Type: PLASMA 06:[address] [facility] Comment: Tests performed on [employer] (405) SN:[id number] Ordering Provid er: ISATU TODD Report Released Date/Time: Dec 11, 2021 07:42 AM Reporting Lab: [facility] [address] [facility] [address] Performing Lab: [facility] [address] [facility] [address] UREA NITROGEN 10 7-25 SODIUM 137 135-145 POTASSIUM 4.0 3.5-5.0 CHLORIDE 104 100-110 CARBON DIOXIDE 25 20-30 ANION GAP 8 4-16 GLUCOSE 99 65-100 CREATININE 0.67 0.5-1.5 CALCIUM 8.2 L 8.5-10.5 eGFR(CKD-EPI 2020) >90.0 >60 Dec 14, 2021 06:27 AM [facility] Sp ecimen Type: BLOOD No comment enter ed. Ordering Provid er: ISATU TODD Report Released Date/Time: Dec 10, 2021 07:22 AM Reporting Lab: [facility] [address] [facility] [address] Performing Lab: [facility] [address] [facility] [address] WBC 6.0 4.5-11.0 RBC 4.29 4.23-5.66 HGB [...] Reporting Lab: [facility] [address] [facility] [address] Performing Lab: [facility] [address] [facility] [address] WBC 5.6 4.5-11.0 RBC 4.28 4.23-5.66 HGB [...] [facility] Comment: Tests performed on [employer] (405) SN:[id number] Ordering Provid er: ISATU TODD Report Released Date/Time: Dec 11, 2021 07:42 AM Reporting Lab: [facility] [address] [facility] [address] Performing Lab: [facility] [address] [facility] [address] UREA NITROGEN 12 7-25 SODIUM 136 135-145 POTASSIUM 3.9 3.5-5.0 CHLORIDE 105 100-110 CARBON DIOXIDE 24 20-30 ANION GAP 7 4-16 GLUCOSE 102 H 65-100 CREATININE 0.66 0.5-1.5 CALCIUM 8.3 L 8.5-10.5 eGFR(CKD-EPI 2020) >90.0 >60 Dec 12, 2021 [facility] GLU,BUN,CREAT,LYTES,CA Speci men Type: PLASMA 06:[address] [facility] Comment: Tests performed on [employer] (405) SN:[id number] Ordering Provid er: ISATU TODD Report Released Date/Time: Dec 11, 2021 07:42 AM Reporting Lab: [facility] [address] [facility] [address] Performing [facility]: [facility] [address] [facility] [address] UREA NITROGEN 11 7-25 SODIUM 139 135-145 POTASSIUM 4.1 3.5-5.0 CHLORIDE 107 100-110 CARBON DIOXIDE 24 20-30 ANION GAP 8 4-16 GLUCOSE 110 H 65-100 CREATININE 0.70 0.5-1.5 CALCIUM 8.3 L 8.5-10.5 eGFR(CKD-EPI 2020) >90.0 >60 Dec 12, 2021 06:21 [facility] CBC PROFILE Sp ecimen Type: BLOOD No comment enter ed. Ordering Provid er: ISATU TODD Report Released Date/Time: Dec 10, 2021 07:22 AM Reporting Lab: [facility] [address] [facility] [address] Performing Lab: [facility] [address] [facility] [address] WBC 5.5 4.5-11.0 RBC 4.37 4.23-5.66 HGB [...] 0.00 0-0 Dec 12, 2021 06:00 AM [facility] MAGNESIUM Sp ecimen Type: PLASMA Comment: Testin g Performed on [employer] (405) SN:[id number] Ordering Provid er: ISATU TODD Report Released Date/Time: Dec 12, 2021 08:24 AM Reporting Lab: [place] [facility] [facility] [address] [facility] [address] Performing Lab: [employer] [place] Handle[facility] [address] [facility] [address] MAGNESIUM 1.8 1.6-2.6 Dec 12, 2021 06:00 AM [place] [facility] PHOSPHORUS Sp ecimen Type: PLASMA Comment: Testin g Performed on [employer] (405) SN:[id number] Ordering Provid er: ISATU TODD Report Released Date/Time: Dec 12, 2021 08:24 AM Reporting Lab: [place] [facility] [address] [facility] [address] Performing Lab: [place] [facility] [address] [facility] [address] PHOSPHORUS 3.1 2.5-5.0 Dec 11, 2021 06:15 AM [employer] [place] Handle[facility] ELECTROLYTES Sp ecimen Type: PLASMA Comment: Tests performed on [employer] (405) SN:[id number] Ordering Provid er: ISATU TODD Report Released Date/Time: Dec 10, 2021 07:22 AM Reporting Lab: [place] [facility] [address] [facility] [address] Performing Lab: [place] [facility] [address] [facility] [address] SODIUM 137 135-145 POTASSIUM 4.3 3.5-5.0 CHLORIDE 108 100-110 CARBON DIOXIDE 20 20-30 ANION GAP 9 4-16 Dec 11, 2021 06:15 AM [facility] GasBuddyT [facility] CBC PROFILE Sp ecimen Type: BLOOD Comment: Result s checked Ordering Provid er: ISATU TODD Report Released Date/Time: Dec 10, 2021 07:22 AM Reporting Lab: [place] [facility]MEGAT [facility] [address] [facility] [address] Performing Lab: [place] OMEGAT [facility] [address] [facility] [address] WBC 5.8 4.5-11.0 RBC 4.37 4.23-5.66 HGB [...] ecimen Type: PLASMA Comment: Tests performed on [employer] (721) SN:[id number] Results checked Ordering Provid er: ISATU TODD Report Released Date/Time: Dec 11, 2021 07:44 AM Reporting Lab: [facility] [place] [facility] [address] [facility] [address] Performing Lab: [place] OMEGAT [facility] [address] [facility] [address] PHOSPHORUS 3.0 2.5-5.0 Dec 10, 2021 08:05 AM [place] [facility] MAGNESIUM Sp ecimen Type: PLASMA Comment: [place] [id number] on Dec 10, 2021@08:31 Tests performed on [employer] (405) SN:[id number] Ordering Provid er: ISATU TODD Report Released Date/Time: Dec 10, 2021 07:22 AM Reporting Lab: [place] [facility] [address] [facility] [place] [address] Performing Lab: [place] [facility] [address] [facility] [place] [address] MAGNESIUM 1.7 1.6-2.6 Dec 10, 2021 08:05 AM [place] [facility] PHOSPHORUS Sp ecimen Type: PLASMA Comment: [place] [id number] on Dec 10, 2021@08:31 Tests performed on [employer] (405) SN:[id number] Ordering Provid er: ISATU TODD Report Released Date/Time: Dec 10, 2021 07:22 AM Reporting Lab: [place] [facility] [address] [facility] [place] [address] Performing Lab: [place] [facility] [address] [facility] [place] [address] PHOSPHORUS 1.8 L 2.5-5.0 Dec 10, 2021 08:05 AM [place] UREA NITROGEN Specimen Type: PLASMA [facility] Comment: [place] [id number] on Dec 10, 2021@08:31 Tests performed on [employer] (405) SN:[id number] Ordering Provid er: ISATU TODD Report Released Date/Time: Dec 10, 2021 07:22 AM Reporting Lab: [place] [facility] [address] [facility] [place] [address] Performing Lab: [place] [facility] [address] [facility] [place] [address] UREA NITROGEN 8 7-25 Dec 10, 2021 08:05 AM [place] [facility] GLUCOSE Sp ecimen Type: PLASMA Comment: [place] [id number] on Dec 10, 2021@08:31 Tests performed on [employer] (405) SN:[id number] Ordering Provid er: ISATU TODD Report Released Date/Time: Dec 10, 2021 07:22 AM Reporting Lab: [place] [facility] [address] [facility] [address] Performing Lab: [place] [facility] [address] [facility] [address] GLUCOSE 144 H 65-100 Dec 10, 2021 08:05 AM [place] [facility] CALCIUM Sp ecimen Type: PLASMA Comment: [place] [id number] on Dec 10, 2021@08:31 Tests performed on [employer] (405) SN:[id number] Ordering Provid er: ISATU TODD Report Released Date/Time: Dec 10, 2021 07:22 AM Reporting Lab: [place] [facility] [address] [facility] [address] Performing Lab: [place] [facility] [address] [facility] [address] CALCIUM 8.3 L 8.5-10.5 Dec 10, 2021 08:05 AM [place] [facility] ELECTROLYTES Sp ecimen Type: PLASMA Comment: [place] [id number] on Dec 10, 2021@08:31 Tests performed on [employer] (405) SN:[id number] Ordering Provid er: ISATU TODD Report Released Date/Time: Dec 10, 2021 07:22 AM Reporting Lab: [place] [facility] [address] [facility] [address] Performing Lab: [place] [facility] [address] [facility] [address] SODIUM 139 135-145 POTASSIUM 3.7 3.5-5.0 CHLORIDE 107 100-110 CARBON DIOXIDE 24 20-30 ANION GAP 8 4-16 Dec 10, 2021 08:05 [place] CREATININE WITH eGFR Specime n Type: PLASMA AM [facility] PANEL Comment: [place] [id number] on Dec 10, 2021@08:31 Tests performed on [employer] (405) SN:[id number] Ordering Provid er: ISATU TODD Report Released Date/Time: Dec 10, 2021 07:22 AM Reporting Lab: [place] [facility] [address] [facility] [address] Performing Lab: [place] [facility] [address] [facility] [address] CREATININE 0.78 0.5-1.5 eGFR(CKD-EPI 2020) >90.0 >60 Dec 10, 2021 08:05 AM [facility] CBC PROFILE Sp ecimen Type: BLOOD No comment enter ed. Ordering Provid er: ISATU TODD Report Released Date/Time: Dec 10, 2021 07:22 AM Reporting Lab: [place] OMEGAT [facility] [address] [facility] [address] Performing Lab: [place] [facility] [facility] [address] [facility] [address] WBC 7.0 4.5-11.0 RBC 4.54 4.23-5.66 HGB [...] ecimen Type: PLASMA Comment: Tests performed on [employer] (311) SN:[id number] Ordering Provid er: ISATU TODD Report Released Date/Time: Dec 08, 2021 10:23 AM Reporting Lab: [facility] [address] [facility] [address] Performing Lab: [facility] [address] [facility] [address] MAGNESIUM 1.6 1.6-2.6 Dec 09, 2021 [facility] P4 GLU,BUN,CREAT,LYTES,CA Speci men Type: PLASMA 06:[address] [facility] Comment: Tests performed on [employer] (405) SN:[id number] Ordering Provid er: ISATU TODD Report Released Date/Time: Dec 08, 2021 05:00 PM Reporting Lab: [facility] [address] [facility] [address] Performing Lab: [facility] [address] [facility] [address] UREA NITROGEN 6 L 7-25 SODIUM 134 [...] Reporting Lab: [facility] [address] [facility] [address] Performing Lab: [facility] [address] [facility] [address] WBC 7.1 4.5-11.0 RBC 4.40 4.23-5.66 HGB [...] Type: PLASMA Comment: Testin g Performed on [employer] (405) SN:[id number] Ordering Provid er: ISATU TODD Report Released Date/Time: Dec 07, 2021 10:32 AM Reporting Lab: [facility] [address] [facility] [address] Performing Lab: [facility] [address] [facility] [address] MAGNESIUM 1.5 L 1.6-2.6 Dec 08, 2021 06:39 AM [facility] CBC PROFILE Sp ecimen Type: BLOOD No comment enter ed. Ordering Provid er: ISATU TODD Report Released Date/Time: Dec 07, 2021 10:32 AM Reporting Lab: [facility] [address] [facility] [address] Performing Lab: [facility] [address] [facility] [address] WBC 8.4 4.5-11.0 RBC 4.75 4.23-5.66 HGB [...] [facility] Comment: Testin g Performed on [employer] (405) SN:[id number] Ordering Provid er: ISATU TODD Report Released Date/Time: Dec 07, 2021 10:32 AM Reporting Lab: [facility] [address] [facility] [address] Performing Lab: [facility] [address] [facility] [address] UREA NITROGEN 6 L 7-25 SODIUM 136 135-145 POTASSIUM 3.3 L 3.5-5.0 CHLORIDE 104 100-110 CARBON DIOXIDE 22 20-30 ANION GAP 10 4-16 GLUCOSE 133 H 65-100 CREATININE 0.76 0.5-1.5 CALCIUM 8.4 L 8.5-10.5 eGFR(CKD-EPI 2020) >90.0 >60 Dec 07, 2021 [facility] P4 GLU,BUN,CREAT,LYTES,CA Speci men Type: PLASMA 06:42 AM [facility] Comment: Tests performed on [employer] (405) SN:[id number] Ordering Provid er: PORFIRIO WALTERS Report Released Date/Time: Dec 06, 2021 06:57 PM Reporting Lab: [place] [facility] [facility] [address] [facility] [address] Performing Lab: [facility] [address] [facility] [address] UREA NITROGEN 9 7-25 SODIUM 135 135-145 POTASSIUM 3.5 3.5-5.0 CHLORIDE 103 100-110 CARBON DIOXIDE 22 20-30 ANION GAP 10 4-16 GLUCOSE 92 65-100 CREATININE 0.73 0.5-1.5 CALCIUM 8.0 L 8.5-10.5 eGFR(CKD-EPI 2020) >90.0 >60 Dec 07, 2021 06:42 [place] LIVER PROFILE Specimen Typ e: PLASMA AM [facility] Comment: Tests performed on [employer] E[employer]ctor (405) SN:[id number] Ordering Provid er: PORFIRIO WALTERS Report Released Date/Time: Dec 06, 2021 06:57 PM Reporting Lab: [facility] [address] [facility] [address] Performing Lab: [facility] [address] [facility] [address] PROTEIN, TOTAL 5.7 L 6.0-8.5 ALBUMIN 2.4 L 3.2-5.0 BILIRUBIN, TOTAL 0.4 0.2-1.2 ALKALINE PHOSPHATASE 109 40-150 ALT(SGPT) 10 7-52 AST(SGOT) 15 5-34 FIB-4 SCORE 1.92 <2.67 Dec 07, 2021 06:42 AM [facility] CBC PROFILE Specimen Type: BLOOD [facility] No comment enter ed. Ordering Provid er: PORFIRIO WALTERS Report Released Date/Time: Dec 06, 2021 06:57 PM Reporting Lab: [facility] [address] [facility] [address] Performing Lab[facility] [address] [facility] [address] WBC 5.7 4.5-11.0 RBC 4.15 L 4.23-5.66 [...] [facility] %) AUTOMATED Comment: Tests performed on [employer] (405) SN:[id number] Ordering Provid er: ISATU TODD Report Released Date/Time: Dec 07, 2021 10:28 AM Reporting Lab: [place] [facility] [address] [facility] [address] Performing Lab: [place] [facility] [address] [facility] [address] RETICULOCYTES (%) AUTOMATED 1.23 0. 6-2.0 RETICULOCYTES (ABS) AUTOMATED 0.052 0.030-0.090 Dec 06, 2021 09:45 [place] MRSA SURVL NARES Specimen Ty pe: NARES PM [facility] DNA No comment enter ed. Ordering Provid er: ALVARO VARGHESE Report Released Date/Time: Dec 07, 2021 02:20 AM Reporting Lab: [place] [facility] [address] [facility] [address] Performing Lab: [place] [facility] [address] [facility] [address] MRSA SURVL NARES DNA NEGATIVE NEGATIVE Dec 06, 2021 06:00 [place] URINALYSIS W/REFLEX TO Speci men Type: URINE PM [facility] CULTURE No comment enter ed. Ordering Provid er: JELANI SÁNCHEZ Report Released Date/Time: Dec 06, 2021 11:57 AM Reporting Lab: [place] [facility] [address] [facility] [address] Performing Lab: [place] [facility] [address] [facility] [address] URINE COLOR Arlin YELLOW SPECIFIC GRAVITY 1.029 [...] 21, R[place] VARIANT Comment: https://www.cdc.gov/coronavirus/2019-ncov/cases-updates/variant- surveillance/variant-info.html The [employer]On SARS CoV 2 [employer]ck Research Assay-GX is a next-generation sequencing (NGS) assa 2021 [facility] SEQUENCING y that determine s the complete genome sequence of the SARS-CoV-2 virus. The assay contains variant-tolerant primers to broaden and improve the coverage for variant detection and increase the sensitivity 12:00 [facility] PNL(WH) of the panel to enable detection from lower viral titer samples. The assay is run on the [employer] Sequencer, which performs automated library preparation, sequencing, analysis, and reporting. PM The sequence an alysis includes determination of viral phylogenetic lineage by comparison to the reference strain Wuhan-Hu-1, GenBank: [id number]. Sequence determination may not be possible owing [...] [facility] [address] [facility] [address] Performing Lab: [facility] [address] [facility] [address] SARS-CoV-2 CLADE() 22C (OMICRON) SARS-CoV-2 LINEAGE() BA.2.12.1 Dec 06, 2021 12:00 [facility] COVID-19 AG SCREEN Specimen Type: NASAL CAVITY PM [facility] PANEL BINAX(405) Comment: Testi ng Performed By: Mike Briscoe Ordering Provid er: JELANI SÁNCHEZ Report Released Date/Time: Dec 08, 2021 08:23 AM Reporting Lab: [facility] [address] [facility] [address] Performing Lab: [facility] [address] [facility] [address] COVID-19 AG SCRN(wrj BINAX) POSITIVE HH NE G Dec 06, 2021 12:00 PM [facility] TROPONIN II Sp ecimen Type: PLASMA Comment: Tests performed on [employer]am [employer]stone Erector (405) SN:[id number] Ordering Provid er: JELANI SÁNCHEZ Report Released Date/Time: Dec 06, 2021 11:57 AM Reporting Lab: [facility] [address] [facility] [address] Performing Lab: [facility] [address] [facility] [address] TROPONIN II 0.03 0.00-0.29 Dec 06, 2021 [place] P4 GLU,BUN,CREAT,LYTES,CA Speci men Type: PLASMA 12:00 PM [facility] Comment: Testin g Performed on [employer] (405) SN:[id number] Ordering Provid er: JELANI SÁNCHEZ Report Released Date/Time: Dec 06, 2021 11:57 AM Reporting Lab: [place] [facility] [address] [facility] [address] Performing Lab: [place] [facility] [address] [facility] [address] UREA NITROGEN 13 7-25 SODIUM 138 135-145 POTASSIUM 3.8 3.5-5.0 CHLORIDE 103 100-110 CARBON DIOXIDE 23 20-30 ANION GAP 12 4-16 GLUCOSE 105 H 65-100 CREATININE 0.90 0.5-1.5 CALCIUM 8.7 8.5-10.5 eGFR(CKD-EPI 2020) >90.0 >60 Dec 06, 2021 12:00 PM [facility] LIVER PROFILE Sp ecimen Type: PLASMA Comment: Testin g Performed on [employer] (405) SN:[id number] Ordering Provid er: JELANI SÁNCHEZ Report Released Date/Time: Dec 06, 2021 11:57 AM Reporting Lab: [facility] [address] [facility] [address] Performing Lab: [facility] [address] [facility] [address] PROTEIN, TOTAL 6.6 6.0-8.5 ALBUMIN 2.8 L 3.2-5.0 BILIRUBIN, TOTAL 0.6 0.2-1.2 ALKALINE PHOSPHATASE 134 40-150 ALT(SGPT) 13 7-52 AST(SGOT) 18 5-34 FIB-4 SCORE 1.94 <2.67 Dec 06, 2021 12:00 PM [facility] BNP(P) Sp ecimen Type: PLASMA Comment: Tests performed on [employer]am [employer] Erector (405) SN:[id number] Ordering Provid er: JELANI SÁNCHEZ Report Released Date/Time: Dec 06, 2021 11:57 AM Reporting Lab: [facility] [address] [facility] [address] Per[facility]: [facility] [address] [facility] [address] BNP(P) 224.8 H 10-100 Dec 06, 2021 [facility] COVID-19+FLU/RSV DIAGNOSTIC Spe cimen Type: NASOPHARYNX 12:00 PM [facility] PANEL(405) Comment: Tests performed on [facility] Genexpert (405) Critical results called to and read back by: ALESHIA WILKINSON RN 12/06/21 @ 1312 Ordering Provid er: JELANI SÁNCHEZ Report Released Date/Time: Dec 06, 2021 11:57 AM Reporting Lab: [facility] [address] [facility] [address] Performing Lab: [place] [facility] [address] [facility] [address] FLU A(PCR) NEGATIVE NEGATIVE FLU B(PCR) NEGATIVE NEGATIVE RSV(PCR) NEGATIVE NEGATIVE COVID-19([id number]) DETECTED HH NO T DETECTED Dec 06, 2021 12:00 PM [facility] Sp ecimen Type: BLOOD No comment enter ed. Ordering Provid er: JELANI SÁNCHEZ Report Released Date/Time: Dec 06, 2021 11:57 AM Reporting Lab: [facility] [address] [facility] [address] Performing Lab: [facility] [address] [facility] [address] WBC 7.2 4.5-11.0 RBC 4.86 4.23-5.66 HGB [...] 0 2021 10:59 [place] AM [facility] [...] 1-7 YEARS AGO [facility] Feb 21, 2019 04:11 PM QUIT TOBACCO USE 1-7 YEARS AGO [facility] Feb 20, 2019 03:38 PM QUIT TOBACCO USE 1-7 YEARS AGO [facility] Feb 03, 2019 09:50 AM QUIT TOBACCO USE 1-7 YEARS AGO [facility] May 25, 2016 11:53 PM QUIT TOBACCO USE IN PAST YEAR [facility] [...] IN PAST YEAR [facility] May 01, 2016 03:11 PM [...] W/WO CONTRAST: MARYELLEN LONG LUCAS LARES N [id number] -[id number] [facility] Exm Date: DEC 13, 2021@12:57 Req Phys: ISATU TODD Loc: OP Unknown/0 12-15-2021@13:20 Img Loc: MRI IMAGING (OOS) Service: ZZGENERAL MEDICINE (Case [id number] COMPLETE) MRI ABDOMEN W/WO CONTRAST (M RI Detailed) CPT:66602 Reason for Study: further characterization of a [...] new lyphadenopathy REQUESTING MD: Isatu Todd PAGER: [phone] PHONE: [phone] Weight: 232.2 lb [105.32 kg] (12/12/2021 05:00) [...] patient will need to arrange for a delivery driver/customer service to take him/her home after the MRI [...] 2021 Date Verified: DEC 15, 2021 Glass Deposition Tender E-Sig:/ES/MARYELLEN LONG Report: MRI ABDOMEN W/WO [...] MALIGNANCY Primary Interpreting Staff: MARYELLEN LONG Staff (Glass Deposition Tender) / Dec 10, 2021 09:[address] ABDOMEN & PELVIS: [facility] BENITA MEEKLAS N [id number] -[address] [facility] Ex Date: DEC 10, 2021@09:30 Req Phys: ISATU TODD Loc: 1S MED/12-10@10:57 Img Loc: CT SCAN (OOS) Service: [facility] MEDICINE (Case [id number] COMPLETE) CT ABD & PELVIS WITHOUT CONT RAST (CT Detailed) CPT:32164 Reason for Study: 71 yo male with [...] INDEX - NO HEIGHTS FOUND Pager number: [phone] STAT orders MUST be call ed to RADIOLOGY [phone] to speak to the appropriate manufacturing plant technician. Report Status: Verified Date Reported: DEC 10, 2021 Date Verified: DEC 10, 2021 Glass Deposition Tender E-Sig: Report: EXAM: CT abdomen and [...] ph nodes. READING PHYSICIAN: Ramone Munoz D.O. [phone] 12/10/2021 10:55 EDT [facility] National Teleradiology Program [phone] (For Medical Practitioner Use Only ) [address] [facility], [facility] [address] [place] [address] Attention Patients / Veterans: If you have ques tions or concerns about these test results, please contact your o rdering provider or primary care team. Primary Diagnostic Code: SIGNIFICANT ABNORMALIT Y, ATTN NEEDED Primary Interpreting Staff: RADIOLOGY,OUTSIDE SERVICE, Staff Physician / Dec 09, 2021 07:34 AM BASW (MODIFIED): JESSIE CHENEY TARA ER JCLUCAS LARES N [id number] -[address] [facility] Exm Date: DEC 09, 2021@07:34 Req Phys: PEYTONISATU Manjarrez Loc: 1S MED/12-09@11:26 Img Loc: XRAY (OOS) Service: [facility] MEDICINE (Case [id number] COMPLETE) BASW (MODIFIED) (RAD Detaile d) CPT:45930 Contrast Media : Barium Reason for Study: dysphagia ?esophageal spasm Clinical History: Report Status: Verified Date Reported: DEC 09, 2021 Date Verified: DEC 09, 2021 Glass Deposition Tender E-Sig:/ES/JESSIE CHENEY Report: BASW (MODIFIED) , [...] Primary Interpreting Staff: JESSIE CHENEY, RADIOLOGIST (Glass Deposition Tender) /TLC Dec 06, 2021 12:[address] CHEST (INCLUDES ADRENALS): JESSIE CHENEY LUCAS LARES N [id number] -[address] [facility] Exm Date: DEC 06, 2021@12:59 Req Phys: JELANI SÁNCHEZ Pat Loc: [facility] ED DAYS M 1RD (Req'g Loc) Img Loc: CT SCAN (OOS) Service: Unknown (Case [id number] COMPLETE) CT THORAX W/O CONT (CT Detai led) CPT:86378 Reason for Study: Opacification right chest Clinical History: No contrast allergy BUN: 13 (12/06/21 12:00) CREATI: 0.90 (12/06/21 12:00) eGFR 05/16/21 09:43 52 L Weight: 232.6 lb [105.51 kg] (12/06/2021 11:40) BODY MASS INDEX - NO HEIGHTS FOUND Pager number: [phone] STAT orders MUST be called t o RADIOLOGY [phone] to speak to the appropriate manufacturing plant technician. Indications - Other: Opacification right chest, covid positive, lung cancer histo Report Status: Verified Date Reported: DEC 06, 2021 Date Verified: DEC 06, 2021 Glass Deposition Tender E-Sig:/ES/JESSIE CHENEY Report: CT THORAX W/O [...] Primary Interpreting Staff: JESSIE CHENEY, RADIOLOGIST (Glass Deposition Tender) Primary Interpreting Resident: PRINCE CHAMPION, Resident /BR Dec 06, 2021 11:58 AM CHEST SINGLE VIEW: JESSIE CHENEY DOUGLAS N [id number] -1950 M [facility] Exm Date: DEC 06, 2021@11:58 Req Phys: GONZALO,JELANI Link Pat Loc: [facility] ED DAYS M 1RD (Req'g Loc) Img Loc: XRAY (OOS) Service: Unknown (Case [id number] COMPLETE) CHEST SINGLE VIEW (RAD Detai led) CPT:23413 Proc Modifiers : PORTABLE EXAM Reason for Study: SOB, home covid test positive Clinical History: Report Status: Verified Date Reported: DEC 06, 2021 Date Verified: DEC 06, 2021 Glass Deposition Tender E-Sig:/ES/JESSIE CHENEY Report: Exam type: Chest [...] Primary Interpreting Staff: JESSIE CHENEY, RADIOLOGIST (Glass Deposition Tender) /TLC Pathology Reports: +/- 30 days [...] [facility] [CLIA# [id number]] [address] [place] [address] - - - - - - [...] automatically d ocumented from SURGERY package case #[id number] Field (#32) PRINCIPAL PRE-OP DIAGNOSIS, (#.72) OTHER [...] automatically d ocumented from SURGERY package case #[id number] Field (#34) PRINCIPAL POST-OP DIAG, (#.74) OTHER [...] Label: Lucas Meek Paperwork: Lucas Meek Cassette: [id number];..;KALYANI;.;405;[id number] Specimen is labeled: ES bx Received in formalin are several pieces of pale boyd and brown tissue, 1.2 x 0.7 cm in aggregate. Submitted entirely in 1 cassette [id number];..;KALYANI;.;405;[id number] SAW 12/15/2021 Microscopic exam: *+* MODIFIED REPORT *+* (Last modified: JAN 03, 2022@09:30:20 typed by NIURKA WADDELL) DIAGNOSIS: A. 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 Kendell long. TIARA Coombs was notified on 12/21/21. Modified on 01/03/22 to include report from [facility] stating that tumor is NEGATIVE for her2/ matheus amplification. The attending pathologist who signature mansoor ears on this report has reviewed all diagnostic slides and has edited t he gross and/or microscopic portion of this report in rendering the final pathologic diagnosis. [address] [address] CPT: 62402 /emely/ NIURKA Yeung MD Signed Jan 03, 2022@10:28 Performing Laboratory: Surgical Pathology Report Performed By: CAREY DOYLE [facility] [CLIA# [id number]] [address] [place] [address] $FTR - - - - - [...] - - LUCAS MEEK STANDARD FORM 515 ID:[id number] SEX:M :1950 AGE: 71 LOC: SDM END [...] $APHDR Reporting Lab: [facility] [CLIA# [id number]] [address] [place] [address] - - - - - - [...] automatically d ocumented from SURGERY package case #[id number] Field (#32) PRINCIPAL PRE-OP DIAGNOSIS, (#.72) OTHER [...] automatically d ocumented from SURGERY package case #[id number] Field (#34) PRINCIPAL POST-OP DIAG, (#.74) OTHER [...] Label: Lucas Meek Paperwork: Lucas Meek Cassette: [id number];..;KALYANI;.;405;[id number] Specimen is labeled: ES bx Received in formalin are several pieces of pale boyd and brown tissue, 1.2 x 0.7 cm in aggregate. Submitted entirely in 1 cassette [id number];..;KALYANI;.;405;[id number] SAW 12/15/2021 Microscopic exam: DIAGNOSIS: A. 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 Kendell long. TIARA Coombs was notified on 12/21/21. The attending pathologist who signature mansoor ears on this report has reviewed all diagnostic slides and has edited t he gross and/or microscopic portion of this report in rendering the final pathologic diagnosis. [address] [address] CPT: 88116 /emely/ NIURKA Yeung MD Signed Dec 21, 2021@11:46 Performing Laboratory: Surgical Pathology Report Performed By: [facility] [CLIA# [id number]] [address] [place] [address] $FTR - - - - - [...] - - LUCAS MEEK STANDARD FORM 515 ID:[id number] SEX:M :1950 AGE: 71 LOC: SDM END PCP: Isatu Todd /charmaine Yeung MD Signed: 12/21/2021 11:46 Dec 06, 2021 03:30 PM LR MICROBIOLOGY REPORT: [facility] Reporting Lab: [facility] [CLIA# [id number]] [address] [place] [address] Accession [UID]: [id number] [[id number]] Receiv ed: Dec 06, 2021@16:14 Collection sample: BLOOD CUL T BOTTLE(NIRMAL/AERO)Collection date: Dec 06, 2021 15:30 Site/Specimen: BLOOD Provider: JELANI SÁNCHEZ Comment on specimen: LAC Test(s) ordered: BLOOD CULTURE ANAEROBI C....... completed: Dec 12, 2021 06:18 * BACTERIOLOGY FINAL REPORT => Dec 12, 2021 06:1 8 TECH CODE: [id number] Bacteriology Remark(s): NO GROWTH IN 5 DAYS =--=--=--=--=--=--=--=--=--=--=--=--=--= --=--=--=--=--=--=--=--=--=--=--=--=-- Performing Laboratory: Bacteriology Report Performed By: [facility] [CLIA# [id number]] [address] [place] [address] Dec 06, 2021 03:30 PM LR MICROBIOLOGY REPORT: [facility] Reporting Lab: [facility] [CLIA# [id number]] [address] [place] [address] Accession [UID]: [id number] [[id number]] Receiv ed: Dec 06, 2021@16:14 Collection sample: BLOOD CUL T BOTTLE(NIRMAL/AERO)Collection date: Dec 06, 2021 15:30 Site/Specimen: BLOOD Provider: JELANI SÁNCHEZ Comment on specimen: LAC Test(s) ordered: BLOOD CULTURE AEROBIC. ........ completed: Dec 12, 2021 06:17 * BACTERIOLOGY FINAL REPORT => Dec 12, 2021 06:1 7 TECH CODE: [id number] Bacteriology Remark(s): NO GROWTH IN 5 DAYS =--=--=--=--=--=--=--=--=--=--=--=--=--= --=--=--=--=--=--=--=--=--=--=--=--=-- Performing Laboratory: Bacteriology Report Performed By: [facility] [CLIA# [id number]] [address] [place] [address]
--- OUTSIDE RECORDS SUMMARY | 2022-01-19 09:23 | XMS_ITS | Encounter Summary ---
:1950 Author Organization [facility] rs Address [address] [place] [address] Support Name Relationship Address Phone YUSRA AUGUSTE Unavailable [address] [place] [address] YUSRA AUGUSTE Unavailable [address] [place] [address] CLAY MOSLEY Unavailable Unavailable SJ SANTACRUZ Unavailable [...] MEDICARE MEDICARE PART Jun 18, PART A [id number] DO KALYANI PATIENT (WNR) (M) A 2016 VH81 2 [place] MEDICARE MEDICARE PART Jun 18, PART B [id number] DO KALYANI PATIENT (WNR) (M) B 2016 13A 1 [place] MEDICARE MEDICARE PART Jun 18, PART A [id number] DO KALYANI PATIENT (WNR) (M) A 2016A 1 [place] MEDICARE MEDICARE PART Jun 18, PART B [id number] DO KALYANI PATIENT (WNR) (M) B 2017 VH81 2 LAS [employer] MEDICARE MCR(W Jun 18 [id number] Luz AUGUSTE PATIENT HEALTHCARE ADVANTAGE NR) 2021 37 0 [facility] (WNR) Selected Encounter This section includes the information on record at [place] for the Encounter. Date/Time Encounter Type Encounter Description Reason Provider Source IHE Encounter Template Text not used by [facility]
--- OUTSIDE RECORDS SUMMARY | 2022-01-19 09:24 | XMS_ITS ---
DAILY HOSPITALIZATION DATA [facility] Encounter Summary Created on:December 12, 2021 Patient:LUCAS MEEK Sex:Male :1950 Author Organization [facility] Address [address] [place] [id number] Support Name Relationship Address Phone YUSRA MEEK Unavailable [address] [place] [address] YUSRA MEEK Unavailable [address] [place] [facility] [place] [place] [address] CLAY MOSLEY Unavailable Unavailable SJ SANTACRUZ Unavailable [...] MEDICARE MEDICARE PART Jun 18, PART A [id number] DO KALYANI PATIENT (WNR) (M) A 2016 13A 1 UGLAS MEDICARE MEDICARE PART Jun 18, PART B [id number] DO KALYANI PATIENT (WNR) (M) B 2016 13A 1 [place] MEDICARE MEDICARE PART Jun 18, PART A [id number] KALYANIDO PATIENT (WNR) (M) A 2017 VH81 2 [place] MEDICARE MEDICARE PART Jun 18, PART B [id number] DO KALYANI PATIENT (WNR) (M) B 2017 VH81 2 [place]AS UNITED MEDICARE MCR(Jun 18 [id number] Luz MEEK PATIENT HEALTHCARE ADVANTAGE NR) 2021 37 0 [facility] (WNR) Selected Encounter This section includes the information on record at PA for the Encounter. Date/Time Encounter Type Encounter Description Reason Provider Source Dec 12, 2021 10:30 Inpatient Visit DAILY HOSPITALIZATION DATA AM [facility] Encounter Template Text not used by PA [...] - NONE [place] [facility] Jan 06, 2022 02:00 PM [place] [facility] Jan 10, 2022 11:30 AM [facility] - [facility]INE [facility] Jan 24, 2022 08:00 [place] [facility] Feb 21, 2022 10:00 AM AMBULATORY [place] [facility] Mar 21, 2022 10:30 AM [...] The data comes from all PA treatment [facility]. Test Date/Time Test Type Test Details Facility Name October 31, 2021 07:37 AM Consult Order COMMUNITY CARE-EGD [facility] Cons Lighting Fixtures Decorator's Choice November 15, 2021 10:37 AM Consult Order [facility] CARE-PODIATRY Cons Lighting Fixtures Decorator's Choice Dec 06, 2021 12:52 PM [place]acy [place] Infusion Order [facility] Dec 06, 2021 03:24 PM [place]acy [place] Order [facility] Dec 06, 2021 03:40 PM [place] Order [facility] Dec 15, 2021 08:41 AM Consult Order SPEECH PATHOLOGY [place] Cons [facility] Lighting Fixtures Decorator's Choice Jan 15, 2022 10:08 PM Consult Order [facility] CARE-PALLIATIVE CARE Cons Lighting Fixtures Decorator's Choice Lab Results: +/- 30 days of [...] Reference Range Comment Dec 15, 2021 [place] P4 GLU,BUN,CREAT,LYTES,CA Speci men Type: PLASMA 06:43 AM [facility] Comment: Tests performed on Logic Nation (405) SN:[id number] Ordering Provid er: ISATU TODD Report Released Date/Time: Dec 11, 2021 07:42 AM Reporting Lab: [facility] [address] [facility] [address] Performing Lab: [facility] [address] [facility] [address] UREA NITROGEN 9 7-25 SODIUM 137 135-145 [...] [facility] [address] [facility] [address] Performing Lab: [facility] [address] [facility] [address] WBC 5.7 4.5-11.0 RBC 4.22 L 4.23-5.66 [...] Specimen Type: ESOPHAGUS 02:59 PM [facility] Comment: ~For T est: CYTOGENETIC FISH[place] [place] ~FISH HER 2 NUE, FFPE See full report in Humouno Image display viewer/tab#LAB-Reference Ordering Provid er: NIURKA MILLER Report Released Date/Time: Dec 21, 2021 12:11 PM Reporting Lab: [facility] [address] [facility] [address] Performing Lab: [facility] CYTOGENETIC FISH[place] [place] comment Dec 14, 2021 [facility] P4 GLU,BUN,CREAT,LYTES,CA Speci men Type: PLASMA 06:27 AM [facility] Comment: Tests performed on Logic Nation (405) SN:[id number] Ordering Provid er: ISATU TODD Report Released Date/Time: Dec 11, 2021 07:42 AM Reporting Lab: [facility] [address] [facility] [address] Performing Lab: [facility] [address] [facility] [address] UREA NITROGEN 10 7-25 SODIUM 137 135-145 POTASSIUM 4.0 3.5-5.0 CHLORIDE 104 100-110 CARBON DIOXIDE 25 20-30 ANION GAP 8 4-16 GLUCOSE 99 65-100 CREATININE 0.67 0.5-1.5 CALCIUM 8.2 L 8.5-10.5 eGFR(CKD-EPI 2020) >90.0 >60 Dec 14, 2021 06:27 AM [facility] CBC PROFILE Sp ecimen Type: BLOOD No comment enter ed. Ordering Provid er: ISATU TODD Report Released Date/Time: Dec 10, 2021 07:22 AM Reporting Lab: [facility] [address] [facility] [address] Performing Lab: [facility] [address] [facility] [address] WBC 6.0 4.5-11.0 RBC 4.29 4.23-5.66 HGB [...] GLU,BUN,CREAT,LYTES,CA Speci men Type: PLASMA 06:34 AM [facility] Comment: Tests performed on Logic Nation (405) SN:[id number] Ordering Provid er: ISATU TODD Report Released Date/Time: Dec 11, 2021 07:42 AM Reporting Lab: [facility] [address] [facility] [address] Per[facility]: [facility] [address] [facility] [address] UREA NITROGEN 12 7-25 SODIUM 136 135-145 POTASSIUM 3.9 3.5-5.0 CHLORIDE 105 100-110 CARBON DIOXIDE 24 20-30 ANION GAP 7 4-16 GLUCOSE 102 H 65-100 CREATININE 0.66 0.5-1.5 CALCIUM 8.3 L 8.5-10.5 eGFR(CKD-EPI 2020) >90.0 >60 Dec 13, 2021 06:34 AM [facility] CBC PROFILE Sp ecimen Type: BLOOD No comment enter ed. Ordering Provid er: ISATU TODD Report Released Date/Time: Dec 10, 2021 07:22 AM Reporting Lab: [facility] [address] [facility] [address] Performing Lab: [facility] [address] [facility] [address] WBC 5.6 4.5-11.0 RBC 4.28 4.23-5.66 HGB [...] ABSOLUTE NRBC 0.00 0-0 Dec 12, 2021 [facility] P4 GLU,BUN,CREAT,LYTES,CA Speci men Type: PLASMA 06:21 AM [facility] Comment: Tests performed on Logic Nation (405) SN:[id number] Ordering Provid er: ISATU TODD Report Released Date/Time: Dec 11, 2021 07:42 AM Reporting Lab: [facility] [address] [facility] [address] Performing Lab: [facility] [address] [facility] [address] UREA NITROGEN 11 7-25 SODIUM 139 135-145 POTASSIUM 4.1 3.5-5.0 CHLORIDE 107 100-110 CARBON DIOXIDE 24 20-30 ANION GAP 8 4-16 GLUCOSE 110 H 65-100 CREATININE 0.70 0.5-1.5 CALCIUM 8.3 L 8.5-10.5 eGFR(CKD-EPI 2020) >90.0 >60 Dec 12, 2021 06:21 AM [facility] CBC PROFILE Sp ecimen Type: BLOOD No comment enter ed. Ordering Provid er: ISATU TODD Report Released Date/Time: Dec 10, 2021 07:22 AM Reporting Lab: [facility] [address] [facility] [address] Performing Lab: [facility] [address] [facility] [address] WBC 5.5 4.5-11.0 RBC 4.37 4.23-5.66 HGB [...] 0.00 0-0 Dec 12, 2021 06:00 AM [employer] [facility] MAGNESIUM Sp ecimen Type: PLASMA Comment: Testin g Performed on Logic Nation (405) SN:[id number] Ordering Provid er: ISATU TODD Report Released Date/Time: Dec 12, 2021 08:24 AM Reporting Lab: [place] [facility] [address] [facility] [address] Performing Lab: [employer] [place] [employer] [address] [facility] [address] MAGNESIUM 1.8 1.6-2.6 Dec 12, 2021 06:00 AM [employer] PHOSPHORUS Sp ecimen Type: PLASMA Comment: Testin g Performed on Logic Nation (405) SN:[id number] Ordering Provid er: ISATU TODD Report Released Date/Time: Dec 12, 2021 08:24 AM Reporting Lab: [place] [facility] [address] [facility] [address] Performing Lab: [place] [employer] [address] [facility] [address] PHOSPHORUS 3.1 2.5-5.0 Dec 11, 2021 06:15 AM [employer] [place] [employer] ELECTROLYTES Sp ecimen Type: PLASMA Comment: Tests performed on Logic Nation (405) SN:[id number] Ordering Provid er: ISATU TODD Report Released Date/Time: Dec 10, 2021 07:22 AM Reporting Lab: [place] [employer] [address] [facility] [address] Performing Lab: [place] [employer] [facility] [address] [facility] [address] SODIUM 137 135-145 POTASSIUM 4.3 3.5-5.0 CHLORIDE 108 100-110 CARBON DIOXIDE 20 20-30 ANION GAP 9 4-16 Dec 11, 2021 06:15 AM [facility]ITE [employer] [facility] CBC PROFILE Sp ecimen Type: BLOOD Comment: Result s checked Ordering Provid er: ISATU TODD Report Released Date/Time: Dec 10, 2021 07:22 AM Reporting Lab: [place] OMEGAT [facility] [address] [facility] [address] Performing Lab: [place] OMEGAT [facility] [address] [facility] [address] WBC 5.8 4.5-11.0 RBC 4.37 4.23-5.66 HGB [...] ecimen Type: PLASMA Comment: Tests performed on Logic Nation (148) SN:[id number] Results checked Ordering Provid er: ISATU TODD Report Released Date/Time: Dec 11, 2021 07:44 AM Reporting Lab: [facility] [address] [facility] [address] Performing Lab: [place] OMEGAT [facility] [address] [facility] [address] PHOSPHORUS 3.0 2.5-5.0 Dec 10, 2021 08:05 AM [place] [facility] PHOSPHORUS Sp ecimen Type: PLASMA Comment: [place] [id number] on Dec 10, 2021@08:31 Tests performed on Logic Nation (405) SN:[id number] Ordering Provid er: ISATU TODD Report Released Date/Time: Dec 10, 2021 07:22 AM Reporting Lab: [place] [facility] [address] [facility] [address] Performing Lab: [place] [facility] [address] [place] [facility] [place] [address] PHOSPHORUS 1.8 L 2.5-5.0 Dec 10, 2021 08:05 AM [place] UREA NITROGEN Specimen Type: PLASMA [facility] Comment: [place] [id number] on Dec 10, 2021@08:31 Tests performed on Logic Nation (405) SN:[id number] Ordering Provid er: ISATU TODD Report Released Date/Time: Dec 10, 2021 07:22 AM Reporting Lab: [place] [facility] [address] [place] [facility] [place] [address] Performing Lab: [place] [facility] [address] [place] [facility] [place] [address] UREA NITROGEN 8 7-25 Dec 10, 2021 08:05 AM [place] [facility] MAGNESIUM Sp ecimen Type: PLASMA Comment: Added by Ligia on Dec 10, 2021@08:31 Tests performed on Logic Nation (405) SN:[id number] Ordering Provid er: ISATU TODD Report Released Date/Time: Dec 10, 2021 07:22 AM Reporting Lab: [place] [facility] [address] [place] [facility] [place] [address] Performing Lab: [place] [facility] [address] [place] [facility] [place] [address] MAGNESIUM 1.7 1.6-2.6 Dec 10, 2021 08:05 AM [place] [facility] GLUCOSE Sp ecimen Type: PLASMA Comment: [place] [id number] on Dec 10, 2021@08:31 Tests performed on Logic Nation (405) SN:[id number] Ordering Provid er: ISATU TODD Report Released Date/Time: Dec 10, 2021 07:22 AM Reporting Lab: [place] [facility] [address] [facility] [address] Performing Lab: [facility] [address] [facility] [address] GLUCOSE 144 H 65-100 Dec 10, 2021 08:05 AM [facility] CBC PROFILE Sp ecimen Type: BLOOD No comment enter ed. Ordering Provid er: ISATU TODD Report Released Date/Time: Dec 10, 2021 07:22 AM Reporting Lab: [facility] [address] [facility] [address] Performing Lab: [facility] [address] [facility] [address] WBC 7.0 4.5-11.0 RBC 4.54 4.23-5.66 HGB [...] 2021 08:05 AM [facility] CALCIUM Sp ecimen Type: PLASMA Comment: [place] [id number] on Dec 10, 2021@08:31 Tests performed on Logic Nation (405) SN:[id number] Ordering Provid er: ISATU TODD Report Released Date/Time: Dec 10, 2021 07:22 AM Reporting Lab: [place] [facility] [address] [facility] [address] Performing Lab: [place] [facility] [address] [facility] [address] CALCIUM 8.3 L 8.5-10.5 Dec 10, 2021 08:05 [place] CREATININE WITH eGFR Specime n Type: PLASMA AM [facility] PANEL Comment: [place] [id number] on Dec 10, 2021@08:31 Tests performed on Pham Tricida (405) SN:[id number] Ordering Provid er: ISATU TODD Report Released Date/Time: Dec 10, 2021 07:22 AM Reporting Lab: [place] [facility] [address] [facility] [address] Performing Lab: [place] [facility] [address] [facility] [address] CREATININE 0.78 0.5-1.5 eGFR(CKD-EPI 2020) >90.0 >60 Dec 10, 2021 08:05 AM [place] [facility] ELECTROLYTES Sp ecimen Type: PLASMA Comment: [place] [id number] on Dec 10, 2021@08:31 Tests performed on Pham Tricida (405) SN:[id number] Ordering Provid er: ISATU TODD Report Released Date/Time: Dec 10, 2021 07:22 AM Reporting Lab: [place] [facility] [address] [facility] [address] Performing Lab: [place] [facility] [address] [facility] [address] SODIUM 139 135-145 POTASSIUM 3.7 3.5-5.0 CHLORIDE 107 100-110 CARBON DIOXIDE 24 20-30 ANION GAP 8 4-16 Dec 09, 2021 06:46 AM [place] [facility] MAGNESIUM Sp ecimen Type: PLASMA Comment: Tests performed on Pham Tricida (405) SN:[id number] Ordering Provid er: ISATU TODD Report Released Date/Time: Dec 08, 2021 10:23 AM Reporting Lab: [place] [facility] [address] [facility] [address] Performing Lab: [place] [facility] [address] [facility] [address] MAGNESIUM 1.6 1.6-2.6 Dec 09, 2021 [facility] P4 GLU,BUN,CREAT,LYTES,CA Speci men Type: PLASMA 06:46 AM [facility] Comment: Tests performed on Logic Nation (405) SN:[id number] Ordering Provid er: ISATU TODD Report Released Date/Time: Dec 08, 2021 05:00 PM Reporting Lab: [facility] [address] [facility] [address] Performing Lab: [facility] [address] [facility] [address] UREA NITROGEN 6 L 7-25 SODIUM 134 [...] Reporting Lab: [facility] [address] [facility] [address] Performing Lab: [facility] [address] [facility] [address] WBC 7.1 4.5-11.0 RBC 4.40 4.23-5.66 HGB [...] NRBC 0.00 0-0 Dec 08, 2021 [place] P4 GLU,BUN,CREAT,LYTES,CA Speci men Type: PLASMA 06:39 AM [facility] Comment: Testin g Performed on Logic Nation (405) SN:[id number] Ordering Provid er: ISATU TODD Report Released Date/Time: Dec 07, 2021 10:32 AM Reporting Lab: [facility] [address] [facility] [address] Performing Lab: [facility] [address] [facility] [address] UREA NITROGEN 6 L 7-25 SODIUM 136 135-145 POTASSIUM 3.3 L 3.5-5.0 CHLORIDE 104 100-110 CARBON DIOXIDE 22 20-30 ANION GAP 10 4-16 GLUCOSE 133 H 65-100 CREATININE 0.76 0.5-1.5 CALCIUM 8.4 L 8.5-10.5 eGFR(CKD-EPI 2020) >90.0 >60 Dec 08, 2021 06:39 AM [facility] MAGNESIUM Sp ecimen Type: PLASMA Comment: Testin g Performed on Logic Nation (405) SN:[id number] Ordering Provid er: ISATU TODD Report Released Date/Time: Dec 07, 2021 10:32 AM Reporting Lab: [facility] [address] [facility] [address] Performing Lab: [facility] [address] [facility] [address] MAGNESIUM 1.5 L 1.6-2.6 Dec 08, 2021 06:39 AM [facility] CBC PROFILE Sp ecimen Type: BLOOD No comment enter ed. Ordering Provid er: ISATU TODD Report Released Date/Time: Dec 07, 2021 10:32 AM Reporting Lab: [facility] [address] [facility] [address] Performing Lab: [facility] [address] [facility] [...] NRBC 0.00 0-0 Dec 07, 2021 06:42 [facility] LIVER PROFILE Specimen Typ e: PLASMA AM [facility] Comment: Tests performed on Logic Nation (405 SN:[id number] Ordering Provid er: PORFIRIO WALTERS Report Released Date/Time: Dec 06, 2021 06:57 PM Reporting Lab: [facility] [address] [facility] [address] Performing Lab: [facility] [address] [facility] [address] PROTEIN, TOTAL 5.7 L 6.0-8.5 ALBUMIN 2.4 L 3.2-5.0 BILIRUBIN, TOTAL 0.4 0.2-1.2 ALKALINE PHOSPHATASE 109 40-150 ALT(SGPT) 10 7-52 AST(SGOT) 15 5-34 FIB-4 SCORE 1.92 <2.67 Dec 07, 2021 [facility] P4 GLU,BUN,CREAT,LYTES,CA Speci men Type: PLASMA 06:42 AM [facility] Comment: Tests performed on Logic Nation (405) SN:[id number] Ordering Provid er: PORFIRIO WALTERS Report Released Date/Time: Dec 06, 2021 06:57 PM Reporting Lab: [place] [facility] [address] [facility] [address] Performing Lab: [place] [facility] [address] [facility] [address] UREA NITROGEN 9 7-25 SODIUM 135 135-145 POTASSIUM 3.5 3.5-5.0 CHLORIDE 103 100-110 CARBON DIOXIDE 22 20-30 ANION GAP 10 4-16 GLUCOSE 92 65-100 CREATININE 0.73 0.5-1.5 CALCIUM 8.0 L 8.5-10.5 eGFR(CKD-EPI 2020) >90.0 >60 Dec 07, 2021 06:42 AM [place] CBC PROFILE Specimen Type: BLOOD [facility] No comment enter ed. Ordering Provid er: PORFIRIO WALTERS Report Released Date/Time: Dec 06, 2021 06:57 PM Reporting Lab: [place] [facility] [address] [facility] [address] Performing Lab: [facility] [address] [facility] [address] WBC 5.7 4.5-11.0 RBC 4.15 L 4.23-5.66 [...] [facility]AM[facility] %) AUTOMATED Comment: Tests performed on Logic Nation (405) SN:[id number] Ordering Provid er: ISATU TODD Report Released Date/Time: Dec 07, 2021 10:28 AM Reporting Lab: [place] [facility] [address] [facility] [address] Performing Lab: [place] [facility] [address] [facility] [address] RETICULOCYTES (%) AUTOMATED 1.23 0. 6-2.0 RETICULOCYTES (ABS) AUTOMATED 0.052 0.030-0.090 Dec 06, 2021 09:45 [place] MRSA SURVL NARES Specimen Ty pe: NARES PM [facility] DNA No comment enter ed. Ordering Provid er: ALVARO VARGHESE Report Released Date/Time: Dec 07, 2021 02:20 AM Reporting Lab: [place] [facility] [address] [facility] [address] Performing Lab: [place] [facility] [address] [facility] [address] MRSA SURVL NARES DNA NEGATIVE NEGATIVE Dec 06, 2021 06:00 [place] URINALYSIS W/REFLEX TO Speci men Type: URINE PM [facility] CULTURE No comment enter ed. Ordering Provid er: JELANI SÁNCHEZ Report Released Date/Time: Dec 06, 2021 11:57 AM Reporting Lab: [place] [facility] [address] [facility] [address] Performing Lab: [place] [facility] [address] [facility] [address] URINE COLOR Arlin YELLOW SPECIFIC GRAVITY 1.029 [...] 21, R[place] VARIANT Comment: https://www.cdc.gov/coronavirus/2019-ncov/cases-updates/variant- surveillance/variant-info.html The [email or web address] SARS CoV 2 [employer] Research Assay-GX is a next-generation sequencing (NGS) assa 2021 [facility] SEQUENCING y that determine s the complete genome sequence of the SARS-CoV-2 virus. The assay contains variant-tolerant primers to broaden and improve the coverage for variant detection and increase the sensitivity 12:00 [facility] PNL(WH) of the panel to enable detection from lower viral titer samples. The assay is run on the Telebit Sequencer, which performs automated library preparation, sequencing, analysis, and reporting. PM The sequence an alysis includes determination of viral phylogenetic lineage by comparison to the reference strain Wuhan-Hu-1, GenBank: [id number]. Sequence determination may not be possible owing [...] 2021 01:13 PM Reporting Lab: [facility] [address] [facility] [address] Performing Lab: [facility] [address] [facility] [address] SARS-CoV-2 CLADE() 22C (OMICRON) SARS-CoV-2 LINEAGE() BA.2.12.1 Dec 06, 2021 12:00 [facility] COVID-19 AG SCREEN Specimen Type: NASAL CAVITY PM [facility] PANEL BINAX(405) Comment: Testi ng Performed By: Mike Briscoe Ordering Provid er: JELANI SÁNCHEZ Report Released Date/Time: Dec 08, 2021 08:23 AM Reporting Lab: [facility] [address] [facility] [address] Performing Lab: [facility] [address] [facility] [address] COVID-19 AG SCRN(wrj BINAX) POSITIVE HH NE G Dec 06, 2021 [facility] P4 GLU,BUN,CREAT,LYTES,CA Speci men Type: PLASMA 12:00 PM [facility] Comment: Testin g Performed on [employer]am [employer] Installer (405) SN:[id number] Ordering Provid er: JELANI SÁNCHEZ Report Released Date/Time: Dec 06, 2021 11:57 AM Reporting Lab: [facility] [address] [facility] [address] Performing Lab: [facility] [address] [facility] [address] UREA NITROGEN 13 7-25 SODIUM 138 135-145 POTASSIUM 3.8 3.5-5.0 CHLORIDE 103 100-110 CARBON DIOXIDE 23 20-30 ANION GAP 12 4-16 GLUCOSE 105 H 65-100 CREATININE 0.90 0.5-1.5 CALCIUM 8.7 8.5-10.5 eGFR(CKD-EPI 2020) >90.0 >60 Dec 06, 2021 12:00 PM [facility] LIVER PROFILE Sp ecimen Type: PLASMA Comment: Testin g Performed on [employer]er (405) SN:[id number] Ordering Provid er: JELANI SÁNCHEZ Report Released Date/Time: Dec 06, 2021 11:57 AM Reporting Lab: [facility] [place] [facility] [address] [facility] [address] Performing Lab: [facility] [address] [facility] [address] PROTEIN, TOTAL 6.6 6.0-8.5 ALBUMIN 2.8 L 3.2-5.0 BILIRUBIN, TOTAL 0.6 0.2-1.2 ALKALINE PHOSPHATASE 134 40-150 ALT(SGPT) 13 7-52 AST(SGOT) 18 5-34 FIB-4 SCORE 1.94 <2.67 Dec 06, 2021 12:00 PM [facility] TROPONIN II Sp ecimen Type: PLASMA Comment: Tests performed on [employer]er (405) [id number] Ordering Provid er: JELANI SÁNCHEZ Report Released Date/Time: Dec 06, 2021 11:57 AM Reporting Lab: [facility] [address] [facility] [address] Performing Lab: [facility] [address] [facility] [address] TROPONIN II 0.03 0.00-0.29 Dec 06, 2021 12:00 PM [facility] BNP(P) Sp ecimen Type: PLASMA Comment: Tests performed on [employer]er (405) SN:[id number] Ordering Provid er: JELANI SÁNCHEZ Report Released Date/Time: Dec 06, 2021 11:57 AM Reporting Lab: [facility] [facility] [address] [facility] [address] Performing Lab: [facility] [address] [facility] [address] BNP(P) 224.8 H 10-100 Dec 06, 2021 [facility] COVID-19+FLU/RSV DIAGNOSTIC Spe cimen Type: NASOPHARYNX 12:00 PM [facility] PANEL(405) Comment: Tests performed on [employer] (405) Critical results called to and read back by: ALESHIA WILKINSON RN 12/06/21 @ 1312 Ordering Provid er: JELANI SÁNCHEZ Report Released Date/Time: Dec 06, 2021 11:57 AM Reporting Lab: [facility] [address] [facility] [address] Performing Lab: [place] [facility] [address] [facility] [address] FLU A(PCR) NEGATIVE NEGATIVE FLU B(PCR) NEGATIVE NEGATIVE RSV(PCR) NEGATIVE NEGATIVE COVID-19([id number]) DETECTED HH NO T DETECTED Dec 06, 2021 12:00 PM [facility] Sp ecimen Type: BLOOD No comment enter ed. Ordering Provid er: JELANI SÁNCHEZ Report Released Date/Time: Dec 06, 2021 11:57 AM Reporting Lab: [facility] [address] [facility] [address] Performing Lab: [facility] [address] [facility] [address] WBC 7.2 4.5-11.0 RBC 4.86 4.23-5.66 HGB [...] 2021 07:43 /min mm[Hg] RIVER PM T [facility] Dec 12, 0 WHITE 2021 07:37 RIVER PM JCT [facility] Dec 12, 0 WHITE 2021 02:17 RIVER PM T [facility] Dec 12, 98 F 82 127/76 18 /min 97 % WHITE 2021 02:01 /min mm[Hg] RIVER PM T [facility] Dec 12, 0 2021 10:59 RIVER AM [facility] Social [...] TOBACCO USE 1-7 YEARS AGO [facility] Feb 21, 2019 04:11 PM QUIT TOBACCO USE 1-7 YEARS AGO [facility] Feb 20, 2019 03:38 PM QUIT TOBACCO USE 1-7 YEARS AGO [facility] Feb 03, 2019 09:50 AM QUIT TOBACCO USE 1-[facility] May 25, 2016 11:53 PM QUIT TOBACCO USE IN PAST YEAR [facility] May 23, 2016 [...] W/WO CONTRAST: MARYELLEN LONG LUCAS LARES N [id number] -1950 [facility] Exm Date: DEC 13, 2021@12:57 Req Phys: SIATU TODD Loc: OP Unknown/0 12-15-2021@13:20 Img Loc: MRI IMAGING (OOS) Service: ZZGENERAL MEDICINE (Case [id number] COMPLETE) MRI ABDOMEN W/WO CONTRAST (M RI Detailed) CPT:37503 Reason for Study: further characterization of a [...] new lyphadenopathy REQUESTING MD: Isatu Todd PAGER: [phone] PHONE: [phone] Weight: 232.2 lb [105.32 kg] (12/12/2021 05:00) [...] patient will need to arrange for a yard driver to take him/her home after the [...] 15, 2021 Date Verified: DEC 15, 2021 Filling Separator E-Sig:/ES/MARYELLEN LONG Report: MRI ABDOMEN W/WO CONTRAST [...] MALIGNANCY Primary Interpreting Staff: MARYELLEN LONG Staff (Filling Separator) / Dec 10, 2021 09:[address] ABDOMEN & PELVIS: [facility] B[facility] MEEKL[facility] N [id number] -1950 [facility] Ex Date: DEC 10, 2021@09:30 Req Phys: ISATU TODD Loc: 1S MED/12-10@10:57 Img Loc: CT SCAN (OOS) Service: [facility] MEDICINE (Case [id number] COMPLETE) CT ABD & PELVIS WITHOUT CONT RAST (CT Detailed) CPT:80108 Reason for Study: 71 yo male with [...] INDEX - NO HEIGHTS FOUND Pager number: [phone] STAT orders MUST be call ed to RADIOLOGY [phone] to speak to the appropriate solar lab technician. Report Status: Verified Date Reported: DEC 10, 2021 Date Verified: DEC 10, 2021 Filling Separator E-Sig: Report: EXAM: CT abdomen and pelvis [...] ph nodes. READING PHYSICIAN: Ramone Munoz D.O. -[phone] 12/10/2021 10:55 EDT [facility] National Teleradiology Program [phone] (For Medical Practitioner Use Only ) [address], [facility] [address], [address] [place] [address] Attention Patients / Veterans: If you have ques tions or concerns about these test results, please contact your o rdering provider or primary care team. Primary Diagnostic Code: SIGNIFICANT ABNORMALIT Y, ATTN NEEDED Primary Interpreting Staff: RADIOLOGY,OUTSIDE SERVICE, Staff Physician / Dec 09, 2021 07:34 AM BASW (MODIFIED): JESSIE CHENEY TARA ER JCLUCAS LARES N [id number] -1950 [facility] Exm Date: DEC 09, 2021@07:34 Req Phys: PEYTONISATU Manjarrez Loc: 1S MED/12-09@11:26 Img Loc: XRAY (OOS) Service: [facility] MEDICINE (Case [id number] COMPLETE) BASW (MODIFIED) (RAD Detaile d) CPT:84026 Contrast Media : Barium Reason for Study: dysphagia ?esophageal spasm Clinical History: Report Status: Verified Date Reported: DEC 09, 2021 Date Verified: DEC 09, 2021 Filling Separator E-Sig:/ES/JESSIE CHENEY Report: BASW (MODIFIED) , 12/09/2021 [...] REQUIRED Primary Interpreting Staff: JESSIE CHENEY, RADIOLOGIST (Filling Separator) /TLC Dec 06, 2021 12:[address] CHEST (INCLUDES ADRENALS): JESSIE CHENEY LUCAS LARES N [id number] -1950 [facility] Exm Date: DEC 06, 2021@12:59 Req Phys: JELANI SÁNCHEZ Pat Loc: [facility] ED DAYS M 1RD (Req'g Loc) Img Loc: CT SCAN (OOS) Service: Unknown (Case [id number] COMPLETE) CT THORAX W/O CONT (CT Detai led) CPT:06297 Reason for Study: Opacification right chest Clinical History: No contrast allergy BUN: 13 (12/06/21 12:00) CREATI: 0.90 (12/06/21 12:00) eGFR 05/16/21 09:43 52 L Weight: 232.6 lb [105.51 kg] (12/06/2021 11:40) BODY MASS INDEX - NO HEIGHTS FOUND Pager number: [phone] STAT orders MUST be called t o RADIOLOGY [phone] to speak to the appropriate solar lab technician. Indications - Other: Opacification right chest, covid positive, lung cancer histo Report Status: Verified Date Reported: DEC 06, 2021 Date Verified: DEC 06, 2021 Filling Separator E-Sig:/ES/JESSIE CHENEY Report: CT THORAX W/O CONT [...] REQUIRED Primary Interpreting Staff: JESSIE CHENEY, RADIOLOGIST (Filling Separator) Primary Interpreting Resident: PRINCE CHAMPION, Resident /BR Dec 06, 2021 11:58 AM CHEST SINGLE VIEW: JESSIE CHENEY DOUGLAS N [id number] -1950 [facility] Exm Date: DEC 06, 2021@11:58 Req Phys: GONZALO,JELANI Link Pat Loc: [facility] ED DAYS M 1RD (Req'g Loc) Img Loc: XRAY (OOS) Service: Unknown (Case [id number] COMPLETE) CHEST SINGLE VIEW (RAD Detai led) CPT:70274 Proc Modifiers : PORTABLE EXAM Reason for Study: SOB, home covid test positive Clinical History: Report Status: Verified Date Reported: DEC 06, 2021 Date Verified: DEC 06, 2021 Filling Separator E-Sig:/ES/JESSIE CHENEY Report: Exam type: Chest x-ray [...] REQUIRED Primary Interpreting Staff: JESSIE CHENEY, RADIOLOGIST (Filling Separator) /TLC Pathology Reports: +/- 30 days of [...] MILLER LOCAL TITLE: LR SURGICAL PATHOLOGY REPORT [facility] STANDARD TITLE: PATHOLOGY REPORT DATE OF NOTE: JAN 03, 2022@10:28:01 ENTRY DATE: JAN 03, 2022@10:28:01 AUTHOR: NIURKA MILLER EXP COSIGNER: URGENCY: STATUS: COMPLETED $APHDR Reporting Lab: [facility] [CLIA# [id number]] [address] [place] [address] - - - - - - [...] automatically d ocumented from SURGERY package case #[id number] Field (#32) PRINCIPAL PRE-OP DIAGNOSIS, (#.72) OTHER [...] automatically d ocumented from SURGERY package case #[id number] Field (#34) PRINCIPAL POST-OP DIAG, (#.74) OTHER [...] Label: Lucas Meek Paperwork: Lucas Meek Cassette: [id number];..;KALYANI;.;405;[id number] Specimen is labeled: ES bx Received in formalin are several pieces of pale boyd and brown tissue, 1.2 x 0.7 cm in aggregate. Submitted entirely in 1 cassette [id number];..;KALYANI;.;405;[id number] SAW 12/15/2021 Microscopic exam: *+* MODIFIED REPORT *+* (Last modified: JAN 03, 2022@09:30:20 typed by NIURKA WADDELL) DIAGNOSIS: A. 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 Kendell long. TIARA Coombs was notified on 12/21/21. Modified on 01/03/22 to include report from [facility] stating that tumor is NEGATIVE for her2/ matheus amplification. The attending pathologist who signature mansoor ears on this report has reviewed all diagnostic slides and has edited t he gross and/or microscopic portion of this report in rendering the final pathologic diagnosis. [address] [address] CPT: 21411 /emely/ NIURKA Yeung MD Signed Jan 03, 2022@10:28 Performing Laboratory: Surgical Pathology Report Performed By: [facility] [place] [facility] [CLIA# [id number]] [address] [place] [address] $FTR - - - - - [...] - - LUCAS MEEK STANDARD FORM 515 ID:[id number] SEX:M :1950 AGE: 71 LOC: SDM END PCP: Isatu Todd /emely/ NIURKA MILLER Staff Signed: 01/03/2022 10:28 Dec 21, 2021 11:46 AM LR SURGICAL PATHOLOGY REPORT: STEFANY MILLER [facility] LOCAL TITLE: LR SURGICAL PATHOLOGY REPORT [facility] STANDARD TITLE: PATHOLOGY REPORT DATE OF NOTE: DEC 21, 2021@11:46:59 ENTRY DATE: DEC 21, 2021@11:46:59 AUTHOR: NIURKA MILLER EXP COSIGNER: URGENCY: STATUS: COMPLETED $APHDR Reporting Lab: [facility] [CLIA# [id number]] [address] [place] [address] - - - - - - [...] automatically d ocumented from SURGERY package case #[id number] Field (#32) PRINCIPAL PRE-OP DIAGNOSIS, (#.72) OTHER [...] automatically d ocumented from SURGERY package case #[id number] Field (#34) PRINCIPAL POST-OP DIAG, (#.74) OTHER [...] Label: Lucas Meek Paperwork: Lucas Meek Cassette: [id number];..;KALYANI;.;405;[id number] Specimen is labeled: ES bx Received in formalin are several pieces of pale boyd and brown tissue, 1.2 x 0.7 cm in aggregate. Submitted entirely in 1 cassette [id number];..;KALYANI;.;405;[id number] SAW 12/15/2021 Microscopic exam: DIAGNOSIS: A. 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 Kendell long. TIARA Coombs was notified on 12/21/21. The attending pathologist who signature mansoor ears on this report has reviewed all diagnostic slides and has edited t he gross and/or microscopic portion of this report in rendering the final pathologic diagnosis. [address] [address] CPT: 03507 /emely/ NIURKA Yeung MD Signed Dec 21, 2021@11:46 Performing Laboratory: Surgical Pathology Report Performed By: [facility] [CLIA# [id number]] [address] [place] [address] $FTR - - - - - [...] - - LUCAS MEEK STANDARD FORM 515 ID:[id number] SEX:M :1950 AGE: 71 LOC: SDM END PCP: Isatu Todd /charmaine Yeung MD Signed: 12/21/2021 11:46 Dec 06, 2021 03:30 PM LR MICROBIOLOGY REPORT: [facility] Reporting Lab: [facility] [CLIA# [id number]] [address] [place] [address] Accession [UID]: [id number] [[id number]] Receiv ed: Dec 06, 2021@16:14 Collection sample: BLOOD CUL T BOTTLE(NIRMAL/AERO)Collection date: Dec 06, 2021 15:30 Site/Specimen: BLOOD Provider: JELANI SÁNCHEZ Comment on specimen: LAC Test(s) ordered: BLOOD CULTURE ANAEROBI C....... completed: Dec 12, 2021 06:18 * BACTERIOLOGY FINAL REPORT => Dec 12, 2021 06:1 8 TECH CODE: [id number] Bacteriology Remark(s): NO GROWTH IN 5 DAYS =--=--=--=--=--=--=--=--=--=--=--=--=--= --=--=--=--=--=--=--=--=--=--=--=--=-- Performing Laboratory: Bacteriology Report Performed By: [facility] [CLIA# [id number]] [address] [place] [address] Dec 06, 2021 03:30 PM LR MICROBIOLOGY REPORT: [facility] Reporting Lab: [facility] [CLIA# [id number]] [address] [place] [address] Accession [UID]: [id number] [[id number]] Receiv ed: Dec 06, 2021@16:14 Collection sample: BLOOD CUL T BOTTLE(NIRMAL/AERO)Collection date: Dec 06, 2021 15:30 Site/Specimen: BLOOD Provider: JELANI SÁNCHEZ Comment on specimen: LAC Test(s) ordered: BLOOD CULTURE AEROBIC. ........ completed: Dec 12, 2021 06:17 * BACTERIOLOGY FINAL REPORT => Dec 12, 2021 06:1 7 TECH CODE: [id number] Bacteriology Remark(s): NO GROWTH IN 5 DAYS =--=--=--=--=--=--=--=--=--=--=--=--=--= --=--=--=--=--=--=--=--=--=--=--=--=-- Performing Laboratory: Bacteriology Report Performed By: [facility] [CLIA# [id number]] [address] [place] [address]
--- OUTSIDE RECORDS SUMMARY | 2022-01-19 09:24 | XMS_ITS ---
DAILY HOSPITALIZATION DATA [facility] Encounter Summary Created on:December 12, 2021 Patient:LUCAS MEEK Sex:Male :1950 Author Organization [facility] Address [address] [place] [id number] Support Name Relationship Address Phone YUSRA MEEK Unavailable [address] [place] [place] [address] YUSRA MEEK Unavailable [address] [place] [facility] [place] [address] CLAY MOSLEY Unavailable Unavailable SJ SANTACRUZ Unavailable [...] MEDICARE MEDICARE PART Jun 18, PART A [id number] DO KALYANI PATIENT (WNR) (M) A 2016 13A 1 [place]AS MEDICARE MEDICARE PART Jun 18, PART B [id number] DO KALYANI PATIENT (WNR) (M) B 2016 13A 1 [place] MEDICARE MEDICARE PART Jun 18, PART A [id number] KALYANIDO PATIENT (WNR) (M) A 2017 VH81 2 [place] MEDICARE MEDICARE PART Jun 18, PART B [id number] DO KALYANI PATIENT (WNR) (M) B 2017 VH81 2 [place] UNITED MEDICARE MCR(Jun [id number] Luz MEEK PATIENT HEALTHCARE ADVANTAGE NR) 2021 37 0 [facility] (WNR) Selected Encounter This section includes the information on record at [place] for the Encounter. Date/Time Encounter Type Encounter Description Reason Provider Source Dec 12, 2021 10:34 Inpatient Visit DAILY HOSPITALIZATION DATA AM [facility] Encounter Template Text not used [...] - [place] [facility] Jan 10, 2022 11:30 AM AM[facility] Jan 24, 2022 08:00 AM [place] [facility] Feb 21, 2022 10:00 AM [place] [facility] Mar 21, 2022 10:30 AM AMBULATORY [...] The data comes from all [place] treatment [facility]. Test Date/Time Test Type Test Details Facility Name October 31, 2021 07:37 AM Consult Order [facility]-EGD [facility] Cons [place] [facility] Person's Choice November 15, 2021 10:37 AM Consult Order [facility] CARE-PODIATRY Cons [place] Person's Choice Dec 06, 2021 12:52 PM Pharmacy [place] Infusion Order [facility] Dec 06, 2021 03:24 PM Pharmacy [place] Order [facility] Dec 06, 2021 03:40 PM Pharmacy [place] Order [facility] Dec 15, 2021 08:41 AM Consult Order SPEECH PATHOLOGY [place] OUTPATIENT Cons [facility] Crane Ladle Person's Choice Jan 15, 2022 10:08 PM Consult Order [facility] CARE-PALLIATIVE CARE Cons [place] Person's Choice Lab Results: +/- 30 days [...] Range Comment Dec 15, 2021 [place] P4 GLU,BUN,CREAT,LYTES,CA Speci men Type: PLASMA 06:43 AM [facility] Comment: Tests performed on [email or web address] (405) SN:[id number] Ordering Provid er: ISATU TODD Report Released Date/Time: Dec 11, 2021 07:42 AM Reporting Lab: [facility] [address] [facility] [address] Performing Lab: [facility] [address] [facility] [address] UREA NITROGEN 9 7-25 SODIUM 137 135-145 POTASSIUM 3.8 3.5-5.0 CHLORIDE 105 100-110 CARBON DIOXIDE 26 20-30 ANION GAP 6 4-16 GLUCOSE 102 H 65-100 CREATININE 0.64 0.5-1.5 CALCIUM 8.1 L 8.5-10.5 eGFR(CKD-EPI 2020) >90.0 >60 Dec 15, 2021 06:43 AM [facility] CBC PROFILE Sp ecimen Type: BLOOD No comment enter ed. Ordering Provid er: ISATU TODD Report Released Date/Time: Dec 10, 2021 07:22 AM Reporting Lab: [facility] [address] [facility] [address] Performing Lab: [facility] [address] [facility] [address] WBC 5.7 4.5-11.0 RBC 4.22 L 4.23-5.66 [...] ESOPHAGUS 02:59 PM [facility] Comment: ~For T est: CYTOGENETIC FISH([facility] ~FISH HER 2 NUE, FFPE See full report in [employer] Image display viewer/tab#LAB-Reference Ordering Provid er: NIURKA MILLER Report Released Date/Time: Dec 21, 2021 12:11 PM Reporting Lab: [facility] [address] [facility] [address] Performing Lab: [facility] CYTOGENETIC FISH([facility] comment Dec 14, 2021 [facility] P4 GLU,BUN,CREAT,LYTES,CA Speci men Type: PLASMA 06:27 AM [facility] Comment: Tests performed on [email or web address] (405) SN:[id number] Ordering Provid er: ISATU TODD Report Released Date/Time: Dec 11, 2021 07:42 AM Reporting Lab: [facility] [address] [facility] [address] Performing Lab: [facility] [address] [facility] [address] UREA NITROGEN 10 7-25 SODIUM 137 135-145 [...] 2021 07:22 AM [facility] [address] [facility] [address] [facility] [address] [facility] [address] WBC 6.0 4.5-11.0 RBC 4.29 4.23-5.66 HGB [...] 07:22 AM Reporting Lab: [facility] [address] [facility] [address] [facility] [address] [facility] [address] WBC 5.6 4.5-11.0 RBC 4.28 4.23-5.66 HGB [...] GLU,BUN,CREAT,LYTES,CA Speci men Type: PLASMA 06:34 AM [facility] Comment: Tests performed on [email or web address] (405) SN:[id number] Ordering Provid er: ISATU TODD Report Released Date/Time: Dec 11, 2021 07:42 AM Reporting Lab: [facility] [address] [facility] [address] Performing Lab: [facility] [address] [facility] [address] UREA NITROGEN 12 7-25 SODIUM 136 135-145 POTASSIUM 3.9 3.5-5.0 CHLORIDE 105 100-110 CARBON DIOXIDE 24 20-30 ANION GAP 7 4-16 GLUCOSE 102 H 65-100 CREATININE 0.66 0.5-1.5 CALCIUM 8.3 L 8.5-10.5 eGFR(CKD-EPI 2020) >90.0 >60 Dec 12, 2021 [facility] GLU,BUN,CREAT,LYTES,CA Speci men Type: PLASMA 06:21 AM [facility] Comment: Tests performed on [email or web address] (405) SN:[id number] Ordering Provid er: ISATU TODD Report Released Date/Time: Dec 11, 2021 07:42 AM Reporting Lab: [facility] [address] [facility] [address] Performing Lab: [facility] [address] [facility] [address] UREA NITROGEN 11 7-25 SODIUM 139 135-145 POTASSIUM 4.1 3.5-5.0 CHLORIDE 107 100-110 CARBON DIOXIDE 24 20-30 ANION GAP 8 4-16 GLUCOSE 110 H 65-100 CREATININE 0.70 0.5-1.5 CALCIUM 8.3 L 8.5-10.5 eGFR(CKD-EPI 2020) >90.0 >60 Dec 12, 2021 06:21 AM [facility] CBC PROFILE Sp ecimen Type: BLOOD No comment enter ed. Ordering Provid er: ISATU TODD Report Released Date/Time: Dec 10, 2021 07:22 AM Reporting Lab: [facility] [address] [facility] [address] Performing Lab: [facility] [address] [facility] [address] WBC 5.5 4.5-11.0 RBC 4.37 4.23-5.66 HGB [...] 0.00 0-0 Dec 12, 2021 06:00 AM [facility] MAGNESIUM Sp ecimen Type: PLASMA Comment: Testin g Performed on [email or web address] (405) SN:[id number] Ordering Provid er: ISATU TODD Report Released Date/Time: Dec 12, 2021 08:24 AM Reporting Lab: [place] LineaT [facility] [address] [facility] [address] Performing Lab: [facility] [place] [facility] [address] [facility] [address] MAGNESIUM 1.8 1.6-2.6 Dec 12, 2021 06:00 AM [facility] PHOSPHORUS Sp ecimen Type: PLASMA Comment: Testin g Performed on [email or web address] (405) SN:[id number] Ordering Provid er: ISATU TODD Report Released Date/Time: Dec 12, 2021 08:24 AM Reporting Lab: [place] LineaT [facility] [address] [facility] [address] Performing Lab: [place] [facility] [address] [facility] [address] PHOSPHORUS 3.1 2.5-5.0 Dec 11, 2021 06:15 AM [facility] [place] [facility]T [facility] ELECTROLYTES Sp ecimen Type: PLASMA Comment: Tests performed on [email or web address] (405) SN:[id number] Ordering Provid er: ISATU TODD Report Released Date/Time: Dec 10, 2021 07:22 AM Reporting Lab: [place] Line[facility] [address] [facility] [address] Performing Lab: [place] [facility] [address] [facility] [address] SODIUM 137 135-145 POTASSIUM 4.3 3.5-5.0 CHLORIDE 108 100-110 CARBON DIOXIDE 20 20-30 ANION GAP 9 4-16 Dec 11, 2021 06:15 AM [place] [facility]CircleT [facility] CBC PROFILE Sp ecimen Type: BLOOD Comment: Result s checked Ordering Provid er: ISATU TODD Report Released Date/Time: Dec 10, 2021 07:22 AM Reporting Lab: [place] [facility] [address] [facility] [address] Performing Lab: [place] [facility] [facility] [address] [facility] [address] WBC 5.8 4.5-11.0 RBC 4.37 4.23-5.66 HGB [...] 0.00 0-0 Dec 11, 2021 06:00 AM [facility] PHOSPHORUS Sp ecimen Type: PLASMA Comment: Tests performed on [email or web address] (896) SN:[id number] Results checked Ordering Provid er: ISATU TODD Report Released Date/Time: Dec 11, 2021 07:44 AM Reporting Lab: [facility] [place] [facility] [address] [facility] [address] Performing Lab: [place] O[facility] [address] [facility] [address] PHOSPHORUS 3.0 2.5-5.0 Dec 10, 2021 08:05 AM [place] [facility] MAGNESIUM Sp ecimen Type: PLASMA Comment: [place] [id number] on Dec 10, 2021@08:31 Tests performed on [email or web address] (405) SN:[id number] Ordering Provid er: ISATU TODD Report Released Date/Time: Dec 10, 2021 07:22 AM Reporting Lab: [place] [facility] [address] [place] [facility] [place] [place] [address] Performing Lab: [place] [facility] [address] [place] [facility] [place] [place] [address] MAGNESIUM 1.7 1.6-2.6 Dec 10, 2021 08:05 AM [place] [facility] PHOSPHORUS Sp ecimen Type: PLASMA Comment: [place] [id number] on Dec 10, 2021@08:31 Tests performed on [email or web address] (405) SN:[id number] Ordering Provid er: ISATU TODD Report Released Date/Time: Dec 10, 2021 07:22 AM Reporting Lab: [place] [facility] [address] [place] [facility] [place] [place] [address] Performing Lab: [place] [facility] [address] [place] [facility] [place] [address] PHOSPHORUS 1.8 L 2.5-5.0 Dec 10, 2021 08:05 AM [place] UREA NITROGEN Specimen Type: PLASMA [facility] Comment: [place] [id number] on Dec 10, 2021@08:31 Tests performed on [email or web address] (405) SN:[id number] Ordering Provid er: ISATU TODD Report Released Date/Time: Dec 10, 2021 07:22 AM Reporting Lab: [place] [facility] [address] [place] [facility] [place] [place] [address] Performing Lab: [place] [facility] [address] [place] [facility] [place] [place] [address] UREA NITROGEN 8 7-25 Dec 10, 2021 08:05 AM [place] [facility] GLUCOSE Sp ecimen Type: PLASMA Comment: [place] [id number] on Dec 10, 2021@08:31 Tests performed on [email or web address] (405) SN:[id number] Ordering Provid er: ISATU TODD Report Released Date/Time: Dec 10, 2021 07:22 AM Reporting Lab: [place] [facility] [address] [facility] [address] Performing Lab: [place] [facility] [address] [facility] [address] GLUCOSE 144 H 65-100 Dec 10, 2021 08:05 AM [place] [facility] CALCIUM Sp ecimen Type: PLASMA Comment: [place] [id number] on Dec 10, 2021@08:31 Tests performed on [email or web address] (405) SN:[id number] Ordering Provid er: ISATU TODD Report Released Date/Time: Dec 10, 2021 07:22 AM Reporting Lab: [place] [facility] [address] [facility] [address] Performing Lab: [place] [facility] [address] [facility] [address] CALCIUM 8.3 L 8.5-10.5 Dec 10, 2021 08:05 AM [place] [facility] ELECTROLYTES Sp ecimen Type: PLASMA Comment: [place] [id number] on Dec 10, 2021@08:31 Tests performed on [email or web address] (405) SN:[id number] Ordering Provid er: ISATU TODD Report Released Date/Time: Dec 10, 2021 07:22 AM Reporting Lab: [place] [facility] [address] [facility] [address] Performing Lab: [place] [facility] [address] [facility] [address] SODIUM 139 135-145 POTASSIUM 3.7 3.5-5.0 CHLORIDE 107 100-110 CARBON DIOXIDE 24 20-30 ANION GAP 8 4-16 Dec 10, 2021 08:05 AM [place] [facility] CBC PROFILE Sp ecimen Type: BLOOD No comment enter ed. Ordering Provid er: ISATU TODD Report Released Date/Time: Dec 10, 2021 07:22 AM Reporting Lab: [place] [facility] [address] [facility] [address] Performing Lab: [place] [facility] [address] [facility] [address] WBC 7.0 4.5-11.0 RBC 4.54 4.23-5.66 HGB [...] PLASMA AM [facility] PANEL [place]: [place] [id number] on Dec 10, 2021@08:31 Tests performed on [email or web address] (405) SN:[id number] Ordering Provid er: ISATU TODD Report Released Date/Time: Dec 10, 2021 07:22 AM Reporting Lab: [facility] [address] [facility] [address] Performing Lab: [facility] [address] [facility] [address] CREATININE 0.78 0.5-1.5 eGFR(CKD-EPI 2020) >90.0 >60 Dec 09, 2021 06:46 AM [place] [facility] MAGNESIUM Sp ecimen Type: PLASMA Comment: Tests performed on [email or web address] (405) SN:[id number] Ordering Provid er: ISATU TODD Report Released Date/Time: Dec 08, 2021 10:23 AM Reporting Lab: [place] [facility] [address] [facility] [address] Performing Lab: [place] [facility] [address] [facility] [address] MAGNESIUM 1.6 1.6-2.6 Dec 09, 2021 [facility] P4 GLU,BUN,CREAT,LYTES,CA Speci men Type: PLASMA 06:46 AM [facility] Comment: Tests performed on [email or web address] (405) SN:[id number] Ordering Provid er: ISATU TODD Report Released Date/Time: Dec 08, 2021 05:00 PM Reporting Lab: [facility] [address] [facility] [address] Performing Lab: [facility] [address] [facility] [address] UREA NITROGEN 6 L 7-25 SODIUM 134 [...] Reporting Lab: [facility] [address] [facility] [address] Performing Lab: [facility] [address] [facility] [address] WBC 7.1 4.5-11.0 RBC 4.40 4.23-5.66 HGB [...] 0-0 Dec 08, 2021 06:39 AM [facility] MAGNESIUM Sp ecimen Type: PLASMA Comment: Testin g Performed on [email or web address] (405) SN:[id number] Ordering Provid er: ISATU TODD Report Released Date/Time: Dec 07, 2021 10:32 AM Reporting Lab: [facility] [address] [facility] [address] Performing Lab: [facility] [address] [facility] [address] MAGNESIUM 1.5 L 1.6-2.6 Dec 08, 2021 06:39 AM [facility] CBC PROFILE Sp ecimen Type: BLOOD No comment enter ed. Ordering Provid er: ISATU TODD Report Released Date/Time: Dec 07, 2021 10:32 AM Reporting Lab: [facility] [address] [facility] [address] Performing Lab: [facility] [address] [facility] [address] WBC 8.4 4.5-11.0 RBC 4.75 4.23-5.66 HGB [...] [facility] Comment: Testin g Performed on [email or web address] (405) SN:[id number] Ordering Provid er: ISATU TODD Report Released Date/Time: Dec 07, 2021 10:32 AM Reporting Lab: [facility] [address] [facility] [address] Performing Lab: [facility] [address] [facility] [address] UREA NITROGEN 6 L 7-25 SODIUM 136 135-145 POTASSIUM 3.3 L 3.5-5.0 CHLORIDE 104 100-110 CARBON DIOXIDE 22 20-30 ANION GAP 10 4-16 GLUCOSE 133 H 65-100 CREATININE 0.76 0.5-1.5 CALCIUM 8.4 L 8.5-10.5 eGFR(CKD-EPI 2020) >90.0 >60 Dec 07, 2021 [facility] P4 GLU,BUN,CREAT,LYTES,CA Speci men Type: PLASMA 06:42 AM [facility] Comment: Tests performed on [email or web address] (405) SN:[id number] Ordering Provid er: PORFIRIO WALTERS Report Released Date/Time: Dec 06, 2021 06:57 PM Reporting Lab: [place] Linea[facility] [address] [facility] [address] Performing Lab: [facility] [address] [facility] [address] UREA NITROGEN 9 7-25 SODIUM 135 135-145 POTASSIUM 3.5 3.5-5.0 CHLORIDE 103 100-110 CARBON DIOXIDE 22 20-30 ANION GAP 10 4-16 GLUCOSE 92 65-100 CREATININE 0.73 0.5-1.5 CALCIUM 8.0 L 8.5-10.5 eGFR(CKD-EPI 2020) >90.0 >60 Dec 07, 2021 06:42 [place] LIVER PROFILE Specimen Typ e: PLASMA AM [facility] Comment: Tests performed on [employer] Machine Heel Sprayer (405) SN:[id number] Ordering Provid er: PORFIRIO WALTERS Report Released Date/Time: Dec 06, 2021 06:57 PM Reporting Lab: [facility] [address] [facility] [address] Performing Lab: [facility] [address] [facility] [address] PROTEIN, TOTAL 5.7 L 6.0-8.5 ALBUMIN 2.4 L 3.2-5.0 BILIRUBIN, TOTAL 0.4 0.2-1.2 ALKALINE PHOSPHATASE 109 40-150 ALT(SGPT) 10 7-52 AST(SGOT) 15 5-34 FIB-4 SCORE 1.92 <2.67 Dec 07, 2021 06:42 AM [facility] CBC PROFILE Specimen Type: BLOOD [facility] No comment enter ed. Ordering Provid er: PORFIRIO WALTERS Report Released Date/Time: Dec 06, 2021 06:57 PM Reporting Lab: [facility] [address] [facility] [address] Per[facility]: [facility] [address] [facility] [address] WBC 5.7 4.5-11.0 RBC 4.15 L 4.23-5.66 [...] [facility] %) AUTOMATED Comment: Tests performed on [email or web address] (405) SN:[id number] Ordering Provid er: ISATU TODD Report Released Date/Time: Dec 07, 2021 10:28 AM Reporting Lab: [place] [facility] [address] [facility] [address] Performing Lab: [place] [facility] [address] [facility] [address] RETICULOCYTES (%) AUTOMATED 1.23 0. 6-2.0 RETICULOCYTES (ABS) AUTOMATED 0.052 0.030-0.090 Dec 06, 2021 09:45 [place] MRSA SURVL NARES Specimen Ty pe: NARES PM [facility] DNA No comment enter ed. Ordering Provid er: ALVARO VARGHESE Report Released Date/Time: Dec 07, 2021 02:20 AM Reporting Lab: [place] [facility] [address] [facility] [address] Performing Lab: [place] [facility] [address] [facility] [address] MRSA SURVL NARES DNA NEGATIVE NEGATIVE Dec 06, 2021 06:00 [place] URINALYSIS W/REFLEX TO Speci men Type: URINE PM [facility] CULTURE No comment enter ed. Ordering Provid er: JELANI SNÁCHEZ Report Released Date/Time: Dec 06, 2021 11:57 AM Reporting Lab: [place] [facility] [address] [facility] [address] Performing Lab: [place] [facility] [address] [facility] [address] URINE COLOR Arlin YELLOW SPECIFIC GRAVITY 1.029 [...] RIVER VARIANT Comment: https://www.cdc.gov/coronavirus/2019-ncov/cases-updates/variant- surveillance/variant-info.html [employer] SARS CoV 2 [place] [employer] Assay-GX is a next-generation sequencing (NGS) assa [facility] SE[facility] y that determine s the complete genome sequence of the SARS-CoV-2 virus. The assay contains variant-tolerant primers to broaden and improve the coverage for variant detection and increase the sensitivity 12:00 [facility] PNL(WH) of the panel to enable detection from lower viral titer samples. The assay is run on the Tasqe Sequencer, which performs automated library preparation, sequencing, analysis, and reporting. PM The sequence an alysis includes determination of viral phylogenetic lineage by comparison to the reference strain Wu[place]-Hu-1, GenBank: [id number]. Sequence determination may not be possible owing [...] Dec 06, 2021 01:13 PM Reporting Lab: [facility] [address] [facility] [address] Performing Lab: [facility] [address] [facility] [address] SARS-CoV-2 CLADE() 22C (OMICRON) SARS-CoV-2 LINEAGE() BA.2.12.1 Dec 06, 2021 12:00 [facility] COVID-19 AG SCREEN Specimen Type: NASAL CAVITY PM [facility] PANEL BINAX(405) Comment: Testi ng Performed By: Mike Briscoe Ordering Provid er: JELANI SÁNCHEZ Report Released Date/Time: Dec 08, 2021 08:23 AM Reporting Lab: [facility] [address] [facility] [address] Performing Lab: [facility] [address] [facility] [address] COVID-19 AG SCRN(wrj BINAX) POSITIVE HH NE G Dec 06, 2021 12:00 PM [facility] TROPONIN II Sp ecimen Type: PLASMA Comment: Tests performed on [employer]am Machine Heel Sprayer (405) SN:[id number] Ordering Provid er: JELANI SÁNCHEZ Report Released Date/Time: Dec 06, 2021 11:57 AM Reporting Lab: [facility] [address] [facility] [address] Performing Lab: [facility] [address] [facility] [address] TROPONIN II 0.03 0.00-0.29 Dec 06, 2021 [place] P4 GLU,BUN,CREAT,LYTES,CA Speci men Type: PLASMA 12:00 PM [facility] Comment: Testin g Performed on Pham Machine Heel Sprayer (405) SN:[id number] Ordering Provid er: JELANI SÁNCHEZ Report Released Date/Time: Dec 06, 2021 11:57 AM Reporting Lab: [place] [facility] [address] [facility] [address] Performing Lab: [place] [facility] [address] [facility] [address] UREA NITROGEN 13 7-25 SODIUM 138 135-145 POTASSIUM 3.8 3.5-5.0 CHLORIDE 103 100-110 CARBON DIOXIDE 23 20-30 ANION GAP 12 4-16 GLUCOSE 105 H 65-100 CREATININE 0.90 0.5-1.5 CALCIUM 8.7 8.5-10.5 eGFR(CKD-EPI 2020) >90.0 >60 Dec 06, 2021 12:00 PM [facility] LIVER PROFILE Sp ecimen Type: PLASMA Comment: Testin g Performed on [employer]am Machine Heel Sprayer (405) SN:[id number] Ordering Provid er: JELANI SÁNCHEZ Report Released Date/Time: Dec 06, 2021 11:57 AM Reporting Lab: [facility] [address] [facility] [address] Performing Lab: [facility] [address] [facility] [address] PROTEIN, TOTAL 6.6 6.0-8.5 ALBUMIN 2.8 L 3.2-5.0 BILIRUBIN, TOTAL 0.6 0.2-1.2 ALKALINE PHOSPHATASE 134 40-150 ALT(SGPT) 13 7-52 AST(SGOT) 18 5-34 FIB-4 SCORE 1.94 <2.67 Dec 06, 2021 [facility] COVID-19+FLU/RSV DIAGNOSTIC Spe cimen Type: NASOPHARYNX 12:00 PM [facility] PANEL(405) Comment: Tests performed on [employer] Genexpert (405) Critical results called to and read back by: ALESHIA WILKINSON RN 12/06/21 @ 1312 Ordering Provid er: JELANI SÁNCHEZ Report Released Date/Time: Dec 06, 2021 11:57 AM Reporting Lab: [facility] [address] [facility] [address] Performing Lab: [facility] [address] [facility] [address] FLU A(PCR) NEGATIVE NEGATIVE FLU B(PCR) NEGATIVE NEGATIVE RSV(PCR) NEGATIVE NEGATIVE COVID-19([id number]) DETECTED HH NO T DETECTED Dec 06, 2021 12:00 PM [facility] BNP(P) Sp ecimen Type: PLASMA Comment: Tests performed on Pham Machine Heel Sprayer (405) SN:[id number] Ordering Provid er: JELANI SÁNCHEZ Report Released Date/Time: Dec 06, 2021 11:57 AM Reporting Lab: [facility] [address] [facility] [address] Performing Lab: [facility] [address] [facility] [address] BNP(P) 224.8 H 10-100 Dec 06, 2021 12:00 PM [facility] CBC PROFILE Sp ecimen Type: BLOOD No comment enter ed. Ordering Provid er: JELANI SÁNCHEZ Report Released Date/Time: Dec 06, 2021 11:57 AM Reporting Lab: [facility] [address] [facility] [address] [facility]forming Lab: [facility] [address] [facility] [address] WBC 7.2 4.5-11.0 RBC 4.86 4.23-5.66 HGB [...] 2021 07:43 /min mm[Hg] R[place] PM T [facility] Dec 12, 0 WHITE 2021 07:37 RIVER PM [place] [facility] Dec 12, 0 WHITE 2021 02:17 RIVER PM T [facility] Dec 12, 98 F 82 127/76 18 /min 97 % WHITE 2021 02:01 /min mm[Hg] RIVER PM T [facility] Dec 12, 0 2021 10:59 RIVER AM [facility] Social History: [...] took place. Date/Time Smoking Status/Tobacco Use Comment [facility] Apr 01, 2020 01:16 PM QUIT TOBACCO USE 1-7 YEARS AGO [facility] Mar 24, 2020 03:00 PM QUIT TOBACCO USE 1-7 YEARS [facility] Feb 21, 2019 04:11 PM QUIT TOBACCO USE 1-7 YEARS AGO [facility] Feb 20, 2019 03:38 PM QUIT TOBACCO USE 1-7 YEARS AGO [facility] Feb 03, 2019 09:50 AM QUIT TOBACCO USE 1-7 YEARS AGO [facility] May 25, 2016 11:53 PM QUIT TOBACCO USE [facility] PAST [facility] [facility] May 23, 2016 06:57 PM QUIT [...] THINKING ABOUT QUIT [facility] TOBACCO USE Aug [...] W/WO CONTRAST: MARYELLEN LONG LUCAS LARES N [id number] -1950 [facility] Exm Date: DEC 13, 2021@12:57 Req Phys: ISATU TODD Loc: OP Unknown/0 12-15-2021@13:20 Img Loc: MRI IMAGING (OOS) Service: ZZGENERAL MEDICINE (Case [id number] COMPLETE) MRI ABDOMEN W/WO CONTRAST (M RI Detailed) CPT:29491 Reason for Study: further characterization of a [...] new lyphadenopathy REQUESTING MD: Isatu Todd PAGER: [phone] PHONE: [phone] Weight: 232.2 lb [105.32 kg] (12/12/2021 05:00) [...] 15, 2021 Date Verified: DEC 15, 2021 Commercial Energy Auditor E-Sig:/ES/MARYELLEN LONG Report: MRI ABDOMEN W/WO CONTRAST [...] MALIGNANCY Primary Interpreting Staff: MARYELLEN LONG Staff (Commercial Energy Auditor) / Dec 10, 2021 09:[address] ABDOMEN & PELVIS: [facility] BEN[facility] MEEKLAS N [id number] -1950 [facility] Ex Date: DEC 10, 2021@09:30 Req Phys: ISATU TODD Loc: 1S MED/12-10@10:57 Img Loc: CT SCAN (OOS) Service: [facility] MEDICINE (Case [id number] COMPLETE) CT ABD & PELVIS WITHOUT CONT RAST (CT Detailed) CPT:40839 Reason for Study: 71 yo male with [...] INDEX - NO HEIGHTS FOUND Pager number: [phone] STAT orders MUST be call ed to RADIOLOGY [phone] to speak to the appropriate aircraft engine technician. Report Status: Verified Date Reported: DEC 10, 2021 Date Verified: DEC 10, 2021 Commercial Energy Auditor E-Sig: Report: EXAM: CT abdomen and pelvis [...] ph nodes. READING PHYSICIAN: Ramone Munoz D.O. [phone] 12/10/2021 10:55 EDT [facility] National Teleradiology Program [phone] (For Medical Practitioner Use Only ) [address] [facility], [facility] [address] [place] [address] Attention Patients / Veterans: If you have ques tions or concerns about these test results, please contact your o rdering provider or primary care team. Primary Diagnostic Code: SIGNIFICANT ABNORMALIT Y, ATTN NEEDED Primary Interpreting Staff: RADIOLOGY,OUTSIDE SERVICE, Staff Physician / Dec 09, 2021 07:34 AM BASW (MODIFIED): JESSIE CHENEY TARA ER JCLUCAS LARES N [id number] -1950 [facility] Exm Date: DEC 09, 2021@07:34 Req Phys: PEYTONISATU Manjarrez Loc: 1S MED/12-09@11:26 Img Loc: XRAY (OOS) Service: [facility] MEDICINE (Case [id number] COMPLETE) BASW (MODIFIED) (RAD Detaile d) CPT:30534 Contrast Media : Barium Reason for Study: dysphagia ?esophageal spasm Clinical History: Report Status: Verified Date Reported: DEC 09, 2021 Date Verified: DEC 09, 2021 Commercial Energy Auditor E-Sig:/ES/JESSIE CHENEY Report: BASW (MODIFIED) , 12/09/2021 [...] REQUIRED Primary Interpreting Staff: JESSIE CHENEY, RADIOLOGIST (Commercial Energy Auditor) /TLC Dec 06, 2021 12:[address] CHEST (INCLUDES ADRENALS): JESSIE CHENEY LUCAS LARES N [id number] -1950 [facility] Exm Date: DEC 06, 2021@12:59 Req Phys: JELANI SÁNCHEZ Pat Loc: [facility] ED DAYS M 1RD (Req'g Loc) Img Loc: CT SCAN (OOS) Service: Unknown (Case [id number] COMPLETE) CT THORAX W/O CONT (CT Detai led) CPT:25912 Reason for Study: Opacification right chest Clinical History: No contrast allergy BUN: 13 (12/06/21 12:00) CREATI: 0.90 (12/06/21 12:00) eGFR 05/16/21 09:43 52 L Weight: 232.6 lb [105.51 kg] (12/06/2021 11:40) BODY MASS INDEX - NO HEIGHTS FOUND Pager number: [phone] STAT orders MUST be called t o RADIOLOGY [phone] to speak to the appropriate aircraft engine technician. Indications - Other: Opacification right chest, covid positive, lung cancer histo Report Status: Verified Date Reported: DEC 06, 2021 Date Verified: DEC 06, 2021 Commercial Energy Auditor E-Sig:/ES/JESSIE CHENEY Report: CT THORAX W/O CONT [...] REQUIRED Primary Interpreting Staff: JESSIE CHENEY, RADIOLOGIST (Commercial Energy Auditor) Primary Interpreting Resident: PRINCE CHAMPION, Resident /BR Dec 06, 2021 11:58 AM CHEST SINGLE VIEW: JESSIE CHENEY DOUGLAS N [id number] -1950 [facility] Exm Date: DEC 06, 2021@11:58 Req Phys: GONZALO,JELANI Link Pat Loc: [facility] ED DAYS M 1RD (Req'g Loc) Img Loc: XRAY (OOS) Service: Unknown (Case [id number] COMPLETE) CHEST SINGLE VIEW (RAD Detai led) CPT:64924 Proc Modifiers : PORTABLE EXAM Reason for Study: SOB, home covid test positive Clinical History: Report Status: Verified Date Reported: DEC 06, 2021 Date Verified: DEC 06, 2021 Commercial Energy Auditor E-Sig:/ES/JESSIE CHENEY Report: Exam type: Chest x-ray [...] REQUIRED Primary Interpreting Staff: JESSIE CHENEY, RADIOLOGIST (Commercial Energy Auditor) /TLC Pathology Reports: +/- 30 days of [...] MILLER LOCAL TITLE: LR SURGICAL PATHOLOGY REPORT [facility] STANDARD TITLE: PATHOLOGY REPORT DATE OF NOTE: JAN 03, 2022@10:28:01 ENTRY DATE: JAN 03, 2022@10:28:01 AUTHOR: NIURKA MILLER EXP COSIGNER: URGENCY: STATUS: COMPLETED $APHDR Reporting Lab: [facility] [CLIA# [id number]] [address] [place] [address] - - - - - - [...] automatically d ocumented from SURGERY package case #[id number] Field (#32) PRINCIPAL PRE-OP DIAGNOSIS, (#.72) OTHER [...] automatically d ocumented from SURGERY package case #[id number] Field (#34) PRINCIPAL POST-OP DIAG, (#.74) OTHER [...] Label: Lucas Meek Paperwork: Lucas Meek Cassette: [id number];..;KALYANI;.;405;[id number] Specimen is labeled: ES bx Received in formalin are several pieces of pale boyd and brown tissue, 1.2 x 0.7 cm in aggregate. Submitted entirely in 1 cassette [id number];..;KALYANI;.;405;[id number] SAW 12/15/2021 Microscopic exam: *+* MODIFIED REPORT *+* (Last modified: JAN 03, 2022@09:30:20 typed by NIURKA WADDELL) DIAGNOSIS: A. 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 Kendell long. TIARA Coombs was notified on 12/21/21. Modified on 01/03/22 to include report from [facility] stating that tumor is NEGATIVE for her2/ matheus amplification. The attending pathologist who signature mansoor ears on this report has reviewed all diagnostic slides and has edited t he gross and/or microscopic portion of this report in rendering the final pathologic diagnosis. [address] [address] CPT: 04575 /emely/ NIURKA Yeung MD Signed Jan 03, 2022@10:28 Performing Laboratory: Surgical Pathology Report Performed By: [facility] [CLIA# [id number]] [address] [place] [id number] $FTR - - - - - [...] - - LUCAS MEEK STANDARD FORM 515 ID:[id number] SEX:M :1950 AGE: 71 LOC: SDM END PCP: Isatu Todd /emely/ NIURKA MILLER Staff Signed: 01/03/2022 10:28 Dec 21, 2021 11:46 AM LR SURGICAL PATHOLOGY REPORT: STEFANY MILLER [facility] LOCAL TITLE: LR SURGICAL PATHOLOGY REPORT [facility] STANDARD TITLE: PATHOLOGY REPORT DATE OF NOTE: DEC 21, 2021@11:46:59 ENTRY DATE: DEC 21, 2021@11:46:59 AUTHOR: NIURKA MILLER EXP COSIGNER: URGENCY: STATUS: COMPLETED $APHDR Reporting Lab: [facility] [CLIA# [id number]] [address] [place] [address] - - - - - - [...] automatically d ocumented from SURGERY package case #[id number] Field (#32) PRINCIPAL PRE-OP DIAGNOSIS, (#.72) OTHER [...] automatically d ocumented from SURGERY package case #[id number] Field (#34) PRINCIPAL POST-OP DIAG, (#.74) OTHER [...] Label: Lucas Meek Paperwork: Lucas Meek Cassette: [id number];..;KALYANI;.;405;[phone] Specimen is labeled: ES bx Received in formalin are several pieces of pale boyd and brown tissue, 1.2 x 0.7 cm in aggregate. Submitted entirely in 1 cassette [id number];..;KALYANI;.;405;[id number] SAW 12/15/2021 Microscopic exam: DIAGNOSIS: A. 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 Kendell long. TIARA Coombs was notified on 12/21/21. The attending pathologist who signature mansoor ears on this report has reviewed all diagnostic slides and has edited t he gross and/or microscopic portion of this report in rendering the final pathologic diagnosis. [address] [address] CPT: 68379 /emely/ NIURKA Yeung MD Signed Dec 21, 2021@11:46 Performing Laboratory: Surgical Pathology Report Performed By: [facility] [CLIA# [id number]] [address] [place] [address] $FTR - - - - - [...] - - LUCAS MEEK STANDARD FORM 515 ID:[id number] SEX:M :1950 AGE: 71 LOC: SDM END PCP: Isatu Todd /charmaine Yeung MD Signed: 12/21/2021 11:46 Dec 06, 2021 03:30 PM LR MICROBIOLOGY REPORT: [facility] Reporting Lab: [facility] [CLIA# [id number]] [address] [place] [address] Accession [UID]: [id number] [[id number]] Receiv ed: Dec 06, 2021@16:14 Collection sample: BLOOD CUL T BOTTLE(NIRMAL/AERO)Collection date: Dec 06, 2021 15:30 Site/Specimen: BLOOD Provider: JELANI SÁNCHEZ Comment on specimen: LAC Test(s) ordered: BLOOD CULTURE ANAEROBI C....... completed: Dec 12, 2021 06:18 * BACTERIOLOGY FINAL REPORT => Dec 12, 2021 06:1 8 TECH CODE: [id number] Bacteriology Remark(s): NO GROWTH IN 5 DAYS =--=--=--=--=--=--=--=--=--=--=--=--=--= --=--=--=--=--=--=--=--=--=--=--=--=-- Performing Laboratory: Bacteriology Report Performed By: [facility] [CLIA# [id number]] [address] [place] [address] Dec 06, 2021 03:30 PM LR MICROBIOLOGY REPORT: [facility] Reporting Lab: [facility] [CLIA# [id number]] [address] [place] [address] Accession [UID]: [id number] [[id number]] Receiv ed: Dec 06, 2021@16:14 Collection sample: BLOOD CUL T BOTTLE(NIRMAL/AERO)Collection date: Dec 06, 2021 15:30 Site/Specimen: BLOOD Provider: JELANI SÁNCHEZ Comment on specimen: LAC Test(s) ordered: BLOOD CULTURE AEROBIC. ........ completed: Dec 12, 2021 06:17 * BACTERIOLOGY FINAL REPORT => Dec 12, 2021 06:1 7 TECH CODE: [id number] Bacteriology Remark(s): NO GROWTH IN 5 DAYS =--=--=--=--=--=--=--=--=--=--=--=--=--= --=--=--=--=--=--=--=--=--=--=--=--=-- Performing Laboratory: Bacteriology Report Performed By: [facility] [CLIA# [id number]] [address] [place] [address]
--- OUTSIDE RECORDS SUMMARY | 2022-01-19 09:26 | XMS_ITS ---
:1950 Author Organization [facility] Address [address] [place] [id number] Support Name Relationship Address Phone YUSRA MEEK Unavailable [address] [place] [address] YUSRA MEEK Unavailable [address] [place] [address] CLAY MOSLEY Unavailable Unavailable SJ SANTACRUZ Unavailable [...] MEDICARE MEDICARE PART Jun 18, PART A [id number] DO KALYANI PATIENT (WNR) (M) A 2016 13A 1 [place] MEDICARE MEDICARE PART Jun 18, PART B [id number] DO KALYANI PATIENT (WNR) (M) B 2016 13A 1 [place] MEDICARE MEDICARE PART Jun 18, PART A [id number] KALYANIDO PATIENT (WNR) (M) A 2017 VH81 2 [place] MEDICARE MEDICARE PART Jun 18, PART B [id number] DO KALYANI PATIENT (WNR) (M) B 2017 VH81 2 [place] UNITED MEDICARE MCR(Jun 18 [id number] Luz MEEK PATIENT HEALTHCARE ADVANTAGE NR) 2021 37 0 [facility] (WNR) Selected Encounter This section includes the information on record at [place] for the Encounter. Date/Time Encounter Type Encounter Description Reason Provider Source Dec 26, 2021 03:37 Outpatient Encounter TELEPHONE CASE PM MANAGEMENT IHE [...] AMBULATORY - SURGERY [place] [facility] Mar 21, 2022 10:30 AM [facility] Active, Pending, and Scheduled Orders This [...] The data comes from all [place] treatment [facility]. Test Date/Time Test Type Test Details Facility Name November 15, 2021 10:37 AM Consult Order [facility] CARE-PODIATRY Cons Car Dumper Operator Helper's Choice Dec 06, 2021 12:52 [...] Cons [facility] Car Dumper Operator Helper's Choice Jan 15, 2022 10:08 PM Consult Order [facility] CARE-PALLIATIVE CARE Cons Car Dumper Operator Helper's Choice Lab Results: +/- 30 [...] [place] Comment: Tests performed on [employer] Point [employer] (405) SN:[id number] Ordering Provid er: ISATU TODD Report Released Date/Time: Dec 11, 2021 07:42 AM Reporting Lab: [facility] [address] [facility] [address] Performing Lab: [facility] [address] [facility] [address] UREA NITROGEN 9 7-25 SODIUM 137 135-145 POTASSIUM 3.8 3.5-5.0 CHLORIDE 105 100-110 CARBON DIOXIDE 26 20-30 ANION GAP 6 4-16 GLUCOSE 102 H 65-100 CREATININE 0.64 0.5-1.5 CALCIUM 8.1 L 8.5-10.5 eGFR(CKD-EPI 2020) >90.0 >60 Dec 15, 2021 06:43 AM [facility] CBC PROFILE Sp ecimen Type: BLOOD No comment enter ed. Ordering Provid er: ISATU TODD Report Released Date/Time: Dec 10, 2021 07:22 AM Reporting Lab: [facility] [address] [facility] [address] Performing Lab: [facility] [address] [facility] [address] WBC 5.7 4.5-11.0 RBC 4.22 L 4.23-5.66 [...] CYTOGENETIC Specimen Type: ESOPHAGUS 02:59 PM [facility] FISH([facility] Comment: ~For T est: CYTOGENETIC FISH([facility]) ~FISH HER 2 NUE, FFPE See full report in [employer] Image display viewer/tab#LAB-Reference Ordering Provid er: NIURKA MILLER Report Released Date/Time: Dec 21, 2021 12:11 PM Reporting Lab: [facility] [address] [facility] [address] Performing Lab: [facility] CYTOGENETIC FISH([facility] comment Dec 14, 2021 [facility] P4 GLU,BUN,CREAT,LYTES,CA Speci men Type: PLASMA 06:27 AM [facility] Comment: Tests performed on [employer] (405) SN:[id number] Ordering Provid er: ISATU TODD Report Released Date/Time: Dec 11, 2021 07:42 AM Reporting Lab: [facility] [address] [facility] [address] Performing Lab: [facility] [address] [facility] [address] UREA NITROGEN 10 7-25 SODIUM 137 135-145 [...] 10, 2021 07:22 AM Reporting Lab: [facility] [address] [facility] [address] Performing Lab: [facility] [address] [facility] [address] WBC 6.0 4.5-11.0 RBC 4.29 4.23-5.66 HGB [...] NRBC 0.00 0-0 Dec 13, 2021 [facility] P[facility] GLU,BUN,CREAT,LYTES,CA Speci men Type: PLASMA 06:34 AM [facility] Comment: Tests performed on [employer] (578) SN:[id number] Ordering Provid er: ISATU TODD Report Released Date/Time: Dec 11, 2021 07:42 AM Reporting Lab: [facility] [address] [facility] [address] [facility] [address] [facility] [address] UREA NITROGEN 12 7-25 SODIUM 136 135-145 [...] AM Reporting Lab: [facility] [address] [facility] [address] Performing Lab: [facility] [address] [facility] [address] WBC 5.6 4.5-11.0 RBC 4.28 4.23-5.66 HGB [...] [place] Comment: Tests performed on [employer] (405) SN:[id number] Ordering Provid er: ISATU TODD Report Released Date/Time: Dec 11, 2021 07:42 AM Reporting Lab: [facility] [address] [facility] [address] Performing Lab: [facility] [address] [facility] [address] UREA NITROGEN 11 7-25 SODIUM 139 135-145 [...] AM Reporting Lab: [facility] [address] [facility] [address] Performing Lab: [facility] [address] [facility] [address] WBC 5.5 4.5-11.0 RBC 4.37 4.23-5.66 HGB [...] Type: PLASMA Comment: Testin g Performed on [employer] (405) SN:[id number] Ordering Provid er: ISATU TODD Report Released Date/Time: Dec 12, 2021 08:24 AM Reporting Lab: [place] [facility] [address] [facility] [address] Performing Lab: [place] [facility] [address] [facility] [address] MAGNESIUM 1.8 1.6-2.6 Dec 12, 2021 06:00 AM [place] [facility] PHOSPHORUS Sp ecimen Type: PLASMA Comment: Testin g Performed on [employer] (405) SN:[id number] Ordering Provid er: ISATU TODD Report Released Date/Time: Dec 12, 2021 08:24 AM Reporting Lab: [place] [facility] [address] [facility] [address] Performing Lab: [place] [facility] [address] [facility] [address] PHOSPHORUS 3.1 2.5-5.0 Dec 11, 2021 06:15 AM [place] [facility] ELECTROLYTES Sp ecimen Type: PLASMA Comment: Tests performed on [employer] (405) SN:[id number] Ordering Provid er: ISATU TODD Report Released Date/Time: Dec 10, 2021 07:22 AM Reporting Lab: [place] [facility] [address] [facility] [address] Performing Lab: [place] [facility] [address] [facility] [address] SODIUM 137 135-145 POTASSIUM 4.3 3.5-5.0 CHLORIDE 108 100-110 CARBON DIOXIDE 20 20-30 ANION GAP 9 4-16 Dec 11, 2021 06:15 AM [place] [facility] CBC PROFILE Sp ecimen Type: BLOOD Comment: Result s checked Ordering Provid er: ISATU TODD Report Released Date/Time: Dec 10, 2021 07:22 AM Reporting Lab: [place] [facility] [address] [facility] [address] Performing Lab: [place] [facility] [address] [facility] [address] WBC 5.8 4.5-11.0 RBC 4.37 4.23-5.66 HGB [...] ecimen Type: PLASMA Comment: Tests performed on [employer] (405) SN:[id number] Results checked Ordering Provid er: ISATU TODD Report Released Date/Time: Dec 11, 2021 07:44 AM Reporting Lab: [place] [facility] [address] [facility] [address] Performing Lab: [place] [facility] [address] [facility] [address] PHOSPHORUS 3.0 2.5-5.0 Dec 10, 2021 08:05 AM [facility] MAGNESIUM Sp ecimen Type: PLASMA Comment: [place] [id number] on Dec 10, 2021@08:31 Tests performed on Pham Voting Machine Mechanic (405) SN:[id number] Ordering Provid er: ISATU TODD Report Released Date/Time: Dec 10, 2021 07:22 AM Reporting Lab: [place] [facility] [address] [place] [facility] [place] [place] [address] Performing Lab: [place] [facility] [address] [place] [facility] [place] [address] MAGNESIUM 1.7 1.6-2.6 Dec 10, 2021 08:05 AM [place] [facility] PHOSPHORUS Sp ecimen Type: PLASMA Comment: [place] [id number] on Dec 10, 2021@08:31 Tests performed on [employer] V[employer] Machine Mechan[employer] (405) SN:[id number] Ordering Provid er: ISATU TODD Report Released Date/Time: Dec 10, 2021 07:22 AM Reporting Lab: [place] [facility] [address] [place] [facility] [place] [address] Performing Lab: [place] [facility] [address] [place] [facility] [place] [address] PHOSPHORUS 1.8 L 2.5-5.0 Dec 10, 2021 08:05 AM [place] UREA NITROGEN Specimen Type: PLASMA [facility] Comment: [place] [id number] on Dec 10, 2021@08:31 Tests performed on [employer] (405) SN:[id number] Ordering Provid er: ISATU TODD Report Released Date/Time: Dec 10, 2021 07:22 AM Reporting Lab: [place] [facility] [address] [place] [facility] [place] [address] Performing Lab: [place] [facility] [address] [place] [facility] [place] [address] UREA NITROGEN 8 7-25 Dec 10, 2021 08:05 AM [place] [facility] GLUCOSE Sp ecimen Type: PLASMA Comment: [place] [id number] on Dec 10, 2021@08:31 Tests performed on [employer] (405) SN:[id number] Ordering Provid er: ISATU TODD Report Released Date/Time: Dec 10, 2021 07:22 AM Reporting Lab: [place] [facility] [address] [place] [facility] [place] [address] Performing Lab: [place] [facility] [address] [place] [facility] [place] [address] GLUCOSE 144 H 65-100 Dec 10, 2021 08:05 AM [place] [facility] CBC PROFILE Sp ecimen Type: BLOOD No comment enter ed. Ordering Provid er: ISATU TODD Report Released Date/Time: Dec 10, 2021 07:22 AM Reporting Lab: [facility] [address] [facility] [address] Performing Lab: [facility] [address] [facility] [address] WBC 7.0 4.5-11.0 RBC 4.54 4.23-5.66 HGB [...] PLASMA AM [facility] PANEL [place]: [place] [id number] on Dec 10, 2021@08:31 Tests performed on [employer] (405) SN:[id number] Ordering Provid er: ISATU TODD Report Released Date/Time: Dec 10, 2021 07:22 AM Reporting Lab: [place] [facility] [address] [facility] [address] Performing Lab: [place] [facility] [address] [facility] [address] CREATININE 0.78 0.5-1.5 eGFR(CKD-EPI 2020) >90.0 >60 Dec 10, 2021 08:05 AM [place] [facility] CALCIUM Sp ecimen Type: PLASMA Comment: [place] [id number] on Dec 10, 2021@08:31 Tests performed on [employer] (405) SN:[id number] Ordering Provid er: ISATU TODD Report Released Date/Time: Dec 10, 2021 07:22 AM Reporting Lab: [place] [facility] [address] [facility] [address] Performing Lab: [place] [facility] [address] [facility] [address] CALCIUM 8.3 L 8.5-10.5 Dec 10, 2021 08:05 AM [place] [facility] ELECTROLYTES Sp ecimen Type: PLASMA Comment: [place] [id number] on Dec 10, 2021@08:31 Tests performed on [employer] (405) SN:[id number] Ordering Provid er: ISATU TODD Report Released Date/Time: Dec 10, 2021 07:22 AM Reporting Lab: [place] [facility] [address] [facility] [address] Performing Lab: [place] [facility] [address] [facility] [address] SODIUM 139 135-145 POTASSIUM 3.7 3.5-5.0 CHLORIDE 107 100-110 CARBON DIOXIDE 24 20-30 ANION GAP 8 4-16 Dec 09, 2021 06:46 AM [place] [facility] MAGNESIUM Sp ecimen Type: PLASMA Comment: Tests performed on [employer] (405) SN:[id number] Ordering Provid er: ISATU TODD Report Released Date/Time: Dec 08, 2021 10:23 AM Reporting Lab: [place] [facility] [address] [facility] [address] Performing Lab: [place] [facility] [address] [facility] [address] MAGNESIUM 1.6 1.6-2.6 Dec 09, 2021 [place] P4 GLU,BUN,CREAT,LYTES,CA Speci men Type: PLASMA 06:46 AM [facility] Comment: Tests performed on [employer] (405) SN:[id number] Ordering Provid er: ISATU TODD Report Released Date/Time: Dec 08, 2021 05:00 PM Reporting Lab: [facility] [address] [facility] [address] Performing Lab: [facility] [address] [facility] [address] UREA NITROGEN 6 L 7-25 SODIUM 134 [...] 08, 2021 05:00 PM Reporting Lab: [facility] [address] [facility] [address] Performing Lab: [facility] [address] [facility] [address] WBC 7.1 4.5-11.0 RBC 4.40 4.23-5.66 HGB [...] Type: PLASMA Comment: Testin g Performed on [employer] (405) SN:[id number] Ordering Provid er: ISATU TODD Report Released Date/Time: Dec 07, 2021 10:32 AM Reporting Lab: [place] [facility] [address] [facility] [address] Performing Lab: [place] [facility] [address] [facility] [address] MAGNESIUM 1.5 L 1.6-2.6 Dec 08, 2021 [place] P4 GLU,BUN,CREAT,LYTES,CA Speci men Type: PLASMA 06:39 AM [facility] Comment: Testin g Performed on [employer] (405) SN:[id number] Ordering Provid er: ISATU TODD Report Released Date/Time: Dec 07, 2021 10:32 AM Reporting Lab: [place] [facility] [address] [facility] [address] Performing Lab: [place] [facility] [address] [facility] [address] UREA NITROGEN 6 L 7-25 SODIUM 136 135-145 POTASSIUM 3.3 L 3.5-5.0 CHLORIDE 104 100-110 CARBON DIOXIDE 22 20-30 ANION GAP 10 4-16 GLUCOSE 133 H 65-100 CREATININE 0.76 0.5-1.5 CALCIUM 8.4 L 8.5-10.5 eGFR(CKD-EPI 2020) >90.0 >60 Dec 08, 2021 06:39 AM [place] [facility] CBC PROFILE Sp ecimen Type: BLOOD No comment enter ed. Ordering Provid er: ISATU TODD Report Released Date/Time: Dec 07, 2021 10:32 AM Reporting Lab: [place] [facility] [address] [facility] [address] Performing Lab: [place] [facility] [address] [facility] [address] WBC 8.4 4.5-11.0 RBC 4.75 4.23-5.66 HGB [...] 0.00 0-0 Dec 07, 2021 06:42 [facility] LIVER PROFILE Specimen Typ e: PLASMA AM [facility] Comment: Tests performed on [employer] (405) SN:[id number] Ordering Provid er: PORFIRIO WALTERS Report Released Date/Time: Dec 06, 2021 06:57 PM Reporting Lab: [facility] [address] [facility] [address] Performing Lab: [facility] [address] [facility] [address] PROTEIN, TOTAL 5.7 L 6.0-8.5 ALBUMIN 2.4 L 3.2-5.0 BILIRUBIN, TOTAL 0.4 0.2-1.2 ALKALINE PHOSPHATASE 109 40-150 ALT(SGPT) 10 7-52 AST(SGOT) 15 5-34 FIB-4 SCORE 1.92 <2.67 Dec 07, 2021 [facility] P4 GLU,BUN,CREAT,LYTES,CA Speci men Type: PLASMA 06:42 AM [facility] Comment: Tests performed on [employer] (405) SN:[id number] Ordering Provid er: PORFIRIO WALTERS Report Released Date/Time: Dec 06, 2021 06:57 PM Reporting Lab: [facility] [address] [facility] [address] Performing Lab: [facility] [address] [facility] [address] UREA NITROGEN 9 7-25 SODIUM 135 135-145 POTASSIUM 3.5 3.5-5.0 CHLORIDE 103 100-110 CARBON DIOXIDE 22 20-30 ANION GAP 10 4-16 GLUCOSE 92 65-100 CREATININE 0.73 0.5-1.5 CALCIUM 8.0 L 8.5-10.5 eGFR(CKD-EPI 2020) >90.0 >60 Dec 07, 2021 06:42 AM [facility] CBC PROFILE Specimen Type: BLOOD [facility] No comment enter ed. Ordering Provid er: PORFIRIO WALTERS Report Released Date/Time: Dec 06, 2021 06:57 PM Reporting Lab: [facility] [address] [facility] [address] Performing Lab: [facility] [address] [facility] [address] WBC 5.7 4.5-11.0 RBC 4.15 L 4.23-5.66 [...] [facility] %) AUTOMATED Comment: Tests performed on [employer] (405) SN:[id number] Ordering Provid er: ISATU TODD Report Released Date/Time: Dec 07, 2021 10:28 AM Reporting Lab: [place] [facility] [address] [facility] [address] Performing Lab: [place] [facility] [address] [facility] [address] RETICULOCYTES (%) AUTOMATED 1.23 0. 6-2.0 RETICULOCYTES (ABS) AUTOMATED 0.052 0.030-0.090 Dec 06, 2021 09:45 [place] MRSA SURVL NARES Specimen Ty pe: NARES PM [facility] DNA No comment enter ed. Ordering Provid er: ALVARO VARGHESE Report Released Date/Time: Dec 07, 2021 02:20 AM Reporting Lab: [place] [facility] [address] [facility] [address] Performing Lab: [place] [facility] [address] [facility] [address] MRSA SURVL NARES DNA NEGATIVE NEGATIVE Dec 06, 2021 06:00 [place] URINALYSIS W/REFLEX TO Speci men Type: URINE PM [facility] CULTURE No comment enter ed. Ordering Provid er: JELANI SÁNCHEZ Report Released Date/Time: Dec 06, 2021 11:57 AM Reporting Lab: [place] [facility] [address] [facility] [address] Performing Lab: [place] [facility] [address] [facility] [address] URINE COLOR Arlin YELLOW SPECIFIC GRAVITY 1.029 [...] 21, R[place]IANT Comment: https://www.cdc.gov/coronavirus/2019-ncov/cases-updates/variant- surveillance/variant-info.html The [employer]ix SoftwareiSeq SARS CoV 2 grabHalo Research Assay-GX is a next-generation sequencing (NGS) [...] samples. The assay is run on the FANCRU Sequencer, which performs automated library preparation, sequencing, analysis, and reporting. PM The sequence an alysis includes determination of viral phylogenetic lineage by comparison to the reference strain Wuhan-Hu-1, GenBank: [id number]. Sequence determination may not be possible owing [...] and its performance characteristics determined by the [facility], which is certified under the Clinical Laboratory Improveme nt Amendments (C MARCO) as qualified to perform high complexity clinical laboratory testing. This test is validated for clinical use at [facility] and should not be regarded as [...] [facility] [address] [facility] [address] Performing Lab: [facility] [address] [facility] [address] SARS-CoV-2 CLADE() 22C (OMICRON) SARS-CoV-2 LINEAGE() BA.2.12.1 Dec 06, 2021 12:00 [facility] COVID-19 AG SCREEN Specimen Type: NASAL CAVITY PM [facility] PANEL BINAX(405) Comment: Testi ng Performed By: Mike Briscoe Ordering Provid er: JELANI SÁNCHEZ Report Released Date/Time: Dec 08, 2021 08:23 AM Reporting Lab: [place] [facility] [address] [facility] [address] Performing Lab: [place] [facility] [address] [facility] [address] COVID-19 AG SCRN(wrj BINAX) POSITIVE HH NE G Dec 06, 2021 12:00 PM [place] [facility] LIVER PROFILE Sp ecimen Type: PLASMA Comment: Testin g Performed on Pham Voting Machine Mechanic (405) SN:[id number] Ordering Provid er: JELANI SÁNCHEZ Report Released Date/Time: Dec 06, 2021 11:57 AM Reporting Lab: [place] [facility] [address] [facility] [address] Performing Lab: [place] [facility] [address] [facility] [address] PROTEIN, TOTAL 6.6 6.0-8.5 ALBUMIN 2.8 L 3.2-5.0 BILIRUBIN, TOTAL 0.6 0.2-1.2 ALKALINE PHOSPHATASE 134 40-150 ALT(SGPT) 13 7-52 AST(SGOT) 18 5-34 FIB-4 SCORE 1.94 <2.67 Dec 06, 2021 [place] P4 GLU,BUN,CREAT,LYTES,CA Speci men Type: PLASMA 12:00 PM [facility] Comment: Testin g Performed on Pham Voting Machine Mechanic (405) SN:[id number] Ordering Provid er: JELANI SÁNCHEZ Report Released Date/Time: Dec 06, 2021 11:57 AM Reporting Lab: [place] [facility] [address] [facility] [address] Performing Lab: [place] [facility] [address] [facility] [address] UREA NITROGEN 13 7-25 SODIUM 138 135-145 POTASSIUM 3.8 3.5-5.0 CHLORIDE 103 100-110 CARBON DIOXIDE 23 20-30 ANION GAP 12 4-16 GLUCOSE 105 H 65-100 CREATININE 0.90 0.5-1.5 CALCIUM 8.7 8.5-10.5 eGFR(CKD-EPI 2020) >90.0 >60 Dec 06, 2021 12:00 PM [place] [facility] BNP(P) Sp ecimen Type: PLASMA Comment: Tests performed on Pham Voting Machine Mechanic (405) SN:[id number] Ordering Provid er: JELANI SÁNCHEZ Report Released Date/Time: Dec 06, 2021 11:57 AM Reporting Lab: [facility] [address] [facility] [address] Performing Lab: [facility] [address] [facility] [address] BNP(P) 224.8 H 10-100 Dec 06, 2021 12:00 PM [facility] TROPONIN II Sp ecimen Type: PLASMA Comment: Tests performed on Pham Voting Machine Mechanic (405) SN:[id number] Ordering Provid er: JELANI SÁNCHEZ Report Released Date/Time: Dec 06, 2021 11:57 AM Reporting Lab: [facility] [address] [facility] [address] Performing Lab: [facility] [address] [place] [facility] [place] [address] TROPONIN II 0.03 0.00-0.29 Dec 06, 2021 [facility] COVID-19+FLU/RSV DIAGNOSTIC Spe cimen Type: NASOPHARYNX 12:00 PM [facility] PANEL(405) Comment: Tests performed on We[employer] Genexpert (405) Critical results called to and read back by: ALESHIA WILKINSON RN 12/06/21 @ 1312 Ordering Provid er: JELANI SÁNCHEZ Report Released Date/Time: Dec 06, 2021 11:57 AM Reporting Lab: [facility] [address] [place] [facility] [place] [address] Performing Lab: [facility] [address] [facility] [address] FLU A(PCR) NEGATIVE NEGATIVE FLU B(PCR) NEGATIVE NEGATIVE RSV(PCR) NEGATIVE NEGATIVE COVID-19([id number]) DETECTED HH NO T DETECTED Dec 06, 2021 [facility]:[address] [facility] Sp ecimen Type: BLOOD No comment enter ed. Ordering Provid er: JELANI SÁNCHEZ Report Released Date/Time: Dec 06, 2021 11:57 AM [facility] [address] [facility] [address] Performing Lab: [facility] [address] [facility] [address] WBC 7.2 4.5-11.0 RBC 4.86 4.23-5.66 HGB [...] AM QUIT TOBACCO USE IN PAST YEAR [facility] Mar 16, 2016 12:50 PM V1-PT DECLINES REF TO TOBACCO [facility] CESS PRGM Mar 16, 2016 12:50 PM V1-PT THINKING ABOUT QUIT [facility] TOBACCO USE Aug 12, 2015 08:48 [...] CONTRAST: MARYELLEN LONG [place] LUCAS MEEK N [id number] -1950 M [facility] Exm Date: DEC 13, 2021@12:57 Req Phys: ISATU TODD Loc: OP Unknown/0 12-15-2021@13:20 Img Loc: MRI IMAGING (OOS) Service: [facility]GENERAL MEDICINE (Case [id number] COMPLETE) MRI ABDOMEN W/WO CONTRAST (M RI Detailed) CPT:81872 Reason for Study: further characterization of a [...] new lyphadenopathy REQUESTING MD: Isatu Todd PAGER: [phone] PHONE: [phone] Weight: 232.2 lb [105.32 kg] (12/12/2021 05:00) [...] need to arrange for a school bus driver to take him/her home after the [...] 15, 2021 Date Verified: DEC 15, 2021 [employer] E-Sig:/ES/MARYELLEN LONG Report: MRI ABDOMEN W/WO [...] internal septation in the right lower renal joye e. Kidneys are otherwise normal. No hydronephrosis. [...] MALIGNANCY Primary Interpreting Staff: Staff AMELIA THOMAS ([employer]) / Dec 10, 2021 09:[address] ABDOMEN & PELVIS: [facility] LUCAS MEEK N [id number] -1950 M [facility] Exm Date: DEC 10, 2021@09:30 Req Phys: ISATU TODD Loc: 1S MED/12-10@10:57 Img Loc: CT SCAN (OOS) Service: [facility] MEDICINE (Case [id number] COMPLETE) CT ABD & PELVIS WITHOUT CONT RAST (CT Detailed) CPT:37086 Reason for Study: 71 yo male with [...] INDEX - NO HEIGHTS FOUND Pager number: [phone] STAT orders MUST be call ed to RADIOLOGY [phone] to speak to the appropriate alternative energy technician. Report Status: Verified Date Reported: DEC 10, 2021 Date Verified: DEC 10, 2021 [employer]-Sig: Report: EXAM: CT abdomen and [...] ph nodes. READING PHYSICIAN: Ramone Munoz D.O. [phone] 12/10/2021 10:55 EDT [facility] [phone] (For Medical Practitioner Use Only ) [address] [place] [address], [address] [place] [address] Attention Patients / Veterans: If you have ques tions or concerns about these test results, please contact your [facility] provider or primary care team. Primary Diagnostic Code: SIGNIFICANT ABNORMALIT Y, ATTN NEEDED Primary Interpreting Staff: RADIOLOGY,OUTSIDE SERVICE, Staff Physician / Dec 09, 2021 07:34 AM BASW (MODIFIED): JESSIE CHENEY [facility] LUCAS MEEK N [id number] -1950 [facility] Exm Date: DEC 09, 2021@07:34 Req Phys: ISATU TODD Loc: MED/12-09@11:26 Img Loc: XRAY (OOS) Service: [facility] MEDICINE (Case [id number] COMPLETE) BASW (MODIFIED) (EUNICE Detaile d) CPT:46462 Contrast Media : Barium Reason for Study: dysphagia ?esophageal spasm Clinical History: Report Status: Verified Date Reported: DEC 09, 2021 Date Verified: DEC 09, 2021 [employer] E-Sig:/ES/JESSIE CHENEY Report: DELISA (MODIFIED) , 12/09/2021 [...] REQUIRED Primary Interpreting Staff: JESSIE CHENEY, RADIOLOGIST ([employer]) /TLC Dec 06, 2021 12:[address] CHEST (INCLUDES ADRENALS): [facility] M[facility]UC[facility] N [id number] -1950 M [facility] Exm Date: DEC 06, 2021@12:59 Req Phys: JELANI SÁNCHEZ Loc: [facility] ED DAYS M 1RD (Req'g Loc) Img Loc: CT SCAN (OOS) Service: Unknown (Case [id number] COMPLETE) CT THORAX W/O CONT (CT Detai led) CPT:73087 Reason for Study: Opacification right chest Clinical History: No contrast allergy BUN: 13 (12/06/21 12:00) CREATI: 0.90 (12/06/21 12:00) eGFR 05/16/21 09:43 52 L Weight: 232.6 lb [105.51 kg] (12/06/2021 11:40) BODY MASS INDEX - NO HEIGHTS FOUND Pager number: [phone] STAT orders MUST be called t o RADIOLOGY [phone] to speak to the appropriate alternative energy technician. Indications - Other: Opacification right chest, covid positive, lung cancer histo Report Status: Verified Date Reported: DEC 06, 2021 Date Verified: DEC 06, 2021 [employer] E-Sig:/ES/JESSIE CHENEY Report: CT THORAX W/O [...] REQUIRED Primary Interpreting Staff: JESSIE CHENEY RADIOLOGIST ([employer]) Primary Interpreting Resident: PRINCE CHAMPION, Resident /ABBI Dec 06, 2021 11:58 AM CHEST SINGLE VIEW: JESSIE CHENEY LUCAS MEEK [id number] -1950 M [facility] Exm Date: DEC 06, 2021@11:58 Req Phys: JELANI SÁNCHEZ Pat Loc: [facility] ED DAYS M 1RD (Req'g Loc) Img Loc: XRAY (OOS) Service: Unknown (Case [id number] COMPLETE) CHEST SINGLE VIEW (RAD Detai led) CPT:61281 Proc Modifiers : PORTABLE EXAM Reason for Study: SOB, home covid test positive Clinical History: Report Status: Verified Date Reported: DEC 06, 2021 Date Verified: DEC 06, 2021 [employer] E-Sig:/ES/JESSIE CHENEY Report: Exam type: Chest [...] REQUIRED Primary Interpreting Staff: JESSIE CHENEY RADIOLOGIST ([employer]) /TLC Pathology Reports: +/- 30 days [...] [facility] [CLIA# [id number]] [address] [place] [address] - - - - - - [...] automatically d ocumented from SURGERY package case #[id number] Field (#32) PRINCIPAL PRE-OP DIAGNOSIS, (#.72) OTHER [...] automatically d ocumented from SURGERY package case #[id number] Field (#34) PRINCIPAL POST-OP DIAG, (#.74) OTHER [...] Label: Lucas Meek Paperwork: Lucas Meek Cassette: [id number];..;KALYANI;.;562;[phone] Specimen is labeled: ES bx Received in formalin are several pieces of pale boyd and brown tissue, 1.2 x 0.7 cm in aggregate. Submitted entirely in 1 cassette [id number];..;KALYANI;.;[phone];[phone] SAW 12/15/2021 Microscopic exam: *+* MODIFIED REPORT [...] report in rendering the final pathologic diagnosis. [address] [address] CPT: 99477 /emely/ NIURKA Yeung MD Signed Jan 03, 2022@10:28 Performing Laboratory: Surgical Pathology Report Performed By: CAREY MONTOYA [facility] [CLIA# [id number]] [address] [place] [address] $FTR - - - - - [...] - - LUCAS MEEK STANDARD FORM 515 ID:[id number] SEX:M :1950 AGE: 71 LOC: SDM END [...] $APHDR Reporting Lab: [facility] [CLIA# [id number]] [address] [place] [facility] [place] [address] - - - - - - [...] automatically d ocumented from SURGERY package case #[id number] Field (#32) PRINCIPAL PRE-OP DIAGNOSIS, (#.72) OTHER [...] automatically d ocumented from SURGERY package case #[id number] Field (#34) PRINCIPAL POST-OP DIAG, (#.74) OTHER POSTOP DIAGS Esophageal cancer Surgeon/physician: MICHELLE CALERO Attending Surgeon: Kyel Saenz MD =-=-=-=-=-=-=-=-=-=-=-=-=-=- =-=-=-=-=-=-=-=-=-=-=-=-=-=-=-=-=-=-=-=-=-=-=-=-=-= - - - [...] Label: Lucas Meek Paperwork: Lucas Meek Cassette: [id number];..;KALYANI;.;405;[id number] Specimen is labeled: ES bx Received in formalin are several pieces of pale boyd and brown tissue, 1.2 x 0.7 cm in aggregate. Submitted entirely in 1 cassette [id number];..;KALYANI;.;405;[id number] SAW 12/15/2021 Microscopic exam: DIAGNOSIS: A. 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 Kendell long. TIARA Coombs was notified on 12/21/21. The attending pathologist who signature mansoor ears on this report has reviewed all diagnostic slides and has edited t he gross and/or microscopic portion of this report in rendering the final pathologic diagnosis. [address] [address] CPT: 06811 /emely/ NIURKA Yeung MD Signed Dec 21, 2021@11:46 Performing Laboratory: Surgical Pathology Report Performed By: CAREY MONTOYA [facility] [CLIA# [id number]] [address] [place] [address] $FTR - - - - - [...] - - LUCAS MEEK STANDARD FORM 515 ID:[id number] SEX:M :1950 AGE: 71 LOC: SDM END PCP: Isatu Todd /emely/ NIURKA MILLER Staff Signed: 12/21/2021 11:46 Dec 06, 2021 03:30 PM LR MICROBIOLOGY REPORT: [facility] Reporting Lab: [facility] [CLIA# [id number]] [address] [place] [address] Accession [UID]: [id number] [[id number]] Receiv ed: Dec 06, 2021@16:14 Collection sample: BLOOD CUL T BOTTLE(NIRMAL/AERO)Collection date: Dec 06, 2021 15:30 Site/Specimen: BLOOD Provider: JELANI SÁNCHEZ Comment on specimen: LAC Test(s) ordered: BLOOD CULTURE ANAEROBI C....... completed: Dec 12, 2021 06:18 * BACTERIOLOGY FINAL REPORT => Dec 12, 2021 06:1 8 TECH CODE: [id number] Bacteriology Remark(s): NO GROWTH IN 5 DAYS =--=--=--=--=--=--=--=--=--=--=--=--=--= --=--=--=--=--=--=--=--=--=--=--=--=-- Performing Laboratory: Bacteriology Report Performed By: [facility] [CLIA# [id number]] [address] [place] [address] Dec 06, 2021 03:30 PM LR MICROBIOLOGY REPORT: [facility] Reporting Lab: [facility] [CLIA# [id number]] [address] [place] [address] Accession [UID]: [id number] [[id number]] Receiv ed: Dec 06, 2021@16:14 Collection sample: BLOOD CUL T BOTTLE(NIRMAL/AERO)Collection date: Dec 06, 2021 15:30 Site/Specimen: BLOOD Provider: JELANI SÁNCHEZ Comment on specimen: LAC Test(s) ordered: BLOOD CULTURE AEROBIC. ........ completed: Dec 12, 2021 06:17 * BACTERIOLOGY FINAL REPORT => Dec 12, 2021 06:1 7 TECH CODE: [id number] Bacteriology Remark(s): NO GROWTH IN 5 DAYS =--=--=--=--=--=--=--=--=--=--=--=--=--= --=--=--=--=--=--=--=--=--=--=--=--=-- Performing Laboratory: Bacteriology Report Performed By: CAREY MONTOYA [facility] [CLIA# [id number]] [address] [place] [address] Encounter Notes: All associated encounter notes This section contains the clinical notes associated to the Encounter. Date/Time Encounter Note(s) Provider Source Dec 26, 2021 03:37 PM PALLIATIVE CARE NURSING NOTE: IRVIN MELÉNDEZ LOCAL TITLE: PALLIATIVE CARE MICA MINER NOTE [facility] STANDARD TITLE: PALLIATIVE CARE NURSING NOTE DATE OF NOTE: DEC 26, 2021@15:37 ENTRY DATE: DEC 26, 2021@15:38:09 AUTHOR: TIERRA MELÉNDEZ EXP COSIGNER: URGENCY: STATUS: COMPLETED RNCM called patient at , to follow-up re: inpatient palliative care consult, regarding current status and to [facility] outpatient palliative care follow-up appointment as discussed. Unable to re ach, left VMM with this CM's name, number and request for call back. /emely/ TIERRA MELÉNDEZ Registered Nurse, [facility] Signed: 12/26/2021 15:41
--- OUTSIDE RECORDS SUMMARY | 2022-01-19 09:26 | XMS_ITS ---
"DAILY HOSPITALIZATION DATA [facility] Encounter Summary Created on:December 12, 2021 Patient:LUCAS MEEK Sex:Male :1950 Author Organization [facility] Address [address] [place] [id number] Support Name Relationship Address Phone YUSRA MEEK Unavailable [address] [place] [address] YUSRA MEEK Unavailable [address] [place] [facility] [place] [address] CLAY MOSLEY Unavailable Unavailable SJ SANTACRUZ Unavailable [...] MEDICARE MEDICARE PART Jun 18, PART A [id number] DO KALYANI PATIENT (WNR) (M) A 2016 13A 1 [place] MEDICARE MEDICARE PART Jun 18, PART B [id number] DO KALYANI PATIENT (WNR) (M) B 2017 13A 1 [place] MEDICARE MEDICARE PART Jun 18, PART B [id number] KALYANIDO PATIENT (WNR) (M) B 2017 VH81 2 [place] MEDICARE MEDICARE PART Jun 18, PART A [id number] DO KALYANI PATIENT (WNR) (M) A 2017 VH81 2 [place] UNITED MEDICARE MCR(W Jun 18 [id number] Luz MEEK PATIENT HEALTHCARE ADVANTAGE NR) 2021 37 0 [facility] (WNR) Selected Encounter This section includes the information on record at [place] for the Encounter. Date/Time Encounter Type Encounter Description Reason Provider Source Dec 12, 2021 10:58 Inpatient Visit DAILY HOSPITALIZATION DATA AM [facility] Encounter Template Text not used by IN [...] 2022 10:00 AM AMBULATORY - [place] [facility] [...] The data comes from all [place] [facility]. Test Date/Time Test Type Test Details Facility Name October 31, 2021 07:37 AM Consult Order COMMUNITY CARE-EGD [facility] Cons Route Sales Specialist's Choice November 15, 2021 10:37 AM Consult Order [facility] Cons Route Sales Specialist's Choice Dec 06, 2021 12:52 PM [...] [place] OUTPATIENT Cons [facility] Route Sales Specialist's Choice Jan 15, 2022 10:08 PM Consult Order [facility]IVE CARE Cons Route Sales Specialist's Choice Lab Results: +/- 30 days [...] Reference Range Comment Dec 15, 2021 [place] P4 GLU,BUN,CREAT,LYTES,CA Speci men Type: PLASMA 06:43 AM [facility] Comment: Tests performed on Urlist (405) SN:[id number] Ordering Provid er: ISATU TODD Report Released Date/Time: Dec 11, 2021 07:42 AM Reporting Lab: [facility] [address] [facility] [address] Performing Lab: [facility] [address] [facility] [address] UREA NITROGEN 9 7-25 SODIUM 137 135-145 [...] T [facility] [address] [facility] [address] Performing Lab: [facility] [address] [facility] [address] WBC 5.7 4.5-11.0 RBC 4.22 L 4.23-5.66 [...] 2 NUE, FFPE See full report in [facility] Image display viewer/tab#LAB-Reference Ordering Provid er: NIURKA MILLER Report Released Date/Time: Dec 21, 2021 12:11 PM Reporting Lab: [facility] [address] [facility] [address] Performing Lab: [facility] CYTOGENETIC FISH([facility] [place] comment Dec 14, 2021 [facility] P4 GLU,BUN,CREAT,LYTES,CA Speci men Type: PLASMA 06:27 AM [facility] Comment: Tests performed on Urlist (405) SN:[id number] Ordering Provid er: ISATU TODD Report Released Date/Time: Dec 11, 2021 07:42 AM Reporting Lab: [facility] [address] [facility] [address] Performing Lab: [facility] [address] [facility] [address] UREA NITROGEN 10 7-25 SODIUM 137 135-145 [...] Lab: [facility] [address] [facility] [address] Performing Lab: [facility] [address] [facility] [address] WBC 6.0 4.5-11.0 RBC 4.29 4.23-5.66 HGB [...] [facility] Comment: Tests performed on Urlist (405) SN:[id number] Ordering Provid er: ISATU TODD Report Released Date/Time: Dec 11, 2021 07:42 AM Reporting Lab: [facility] [address] [facility] [address] Performing [facility]: [facility] [address] [facility] [address] UREA NITROGEN 12 7-25 SODIUM 136 135-145 [...] Lab: [facility] [address] [facility] [address] Performing Lab: [facility] [address] [facility] [address] WBC 5.6 4.5-11.0 RBC 4.28 4.23-5.66 HGB [...] [facility] Comment: Tests performed on Urlist (405) SN:[id number] Ordering Provid er: ISATU TODD Report Released Date/Time: Dec 11, 2021 07:42 AM Reporting Lab: [facility] [address] [facility] [address] Performing Lab: [facility] [address] [facility] [address] UREA NITROGEN 11 7-25 SODIUM 139 135-145 [...] AM Reporting Lab: [facility] [address] [facility] [address] Performing Lab: [facility] [address] [facility] [address] WBC 5.5 4.5-11.0 RBC 4.37 4.23-5.66 HGB [...] 0.00 0-0 Dec 12, 2021 06:00 AM EpicTopicT [facility] MAGNESIUM Sp ecimen Type: PLASMA Comment: Testin g Performed on Urlist (405) SN:[id number] Ordering Provid er: ISATU TODD Report Released Date/Time: Dec 12, 2021 08:24 AM Reporting Lab: [place] [employer] [address] [facility] [address] Performing Lab: [place] [facility] [employer] [address] [facility] [address] MAGNESIUM 1.8 1.6-2.6 Dec 12, 2021 06:00 AM [employer]T [employer] PHOSPHORUS Sp ecimen Type: PLASMA Comment: Testin g Performed on Urlist (405) SN:[id number] Ordering Provid er: ISATU TODD Report Released Date/Time: Dec 12, 2021 08:24 AM Reporting Lab: [place] [employer] [facility] [address] [facility] [address] Performing Lab: [place] [employer] [address] [facility] [address] PHOSPHORUS 3.1 2.5-5.0 Dec 11, 2021 06:15 AM [place] [employer] ELECTROLYTES Sp ecimen Type: PLASMA Comment: Tests performed on Urlist (405) SN:[id number] Ordering Provid er: ISATU TODD Report Released Date/Time: Dec 10, 2021 07:22 AM Reporting Lab: [place] [employer] [facility] [address] [facility] [address] Performing Lab: [place] [employer] [facility] [address] [facility] [address] SODIUM 137 135-145 POTASSIUM 4.3 3.5-5.0 CHLORIDE 108 100-110 CARBON DIOXIDE 20 20-30 ANION GAP 9 4-16 Dec 11, 2021 06:15 AM [place] [employer] Card To Get Approved ForT [facility] CBC PROFILE Sp ecimen Type: BLOOD Comment: Result s checked Ordering Provid er: ISATU TODD Report Released Date/Time: Dec 10, 2021 07:22 AM Reporting Lab: [place] OMEGAT [facility] [address] [facility] [address] Performing Lab: [place] OMEGAT [facility] [address] [facility] [address] WBC 5.8 4.5-11.0 RBC 4.37 4.23-5.66 HGB [...] ecimen Type: PLASMA Comment: Tests performed on Urlist (702) SN:[id number] Results checked Ordering Provid er: ISATU TODD Report Released Date/Time: Dec 11, 2021 07:44 AM Reporting Lab: [place] [facility] [facility] [address] [facility] [address] Performing Lab: [place] OMEGAT INMROC [address] [facility] [address] PHOSPHORUS 3.0 2.5-5.0 Dec 10, 2021 08:05 AM [place] [facility] MAGNESIUM Sp ecimen Type: PLASMA Comment: [place] [id number] on Dec 10, 2021@08:31 Tests performed on Urlist (405) SN:[id number] Ordering Provid er: ISATU TODD Report Released Date/Time: Dec 10, 2021 07:22 AM Reporting Lab: [place] [facility] [address] [place] [facility] [place] [address] Performing Lab: [place] [facility] [address] [place] [facility] [place] [address] MAGNESIUM 1.7 1.6-2.6 Dec 10, 2021 08:05 AM [place] UREA NITROGEN Specimen Type: PLASMA [facility] Comment: [place] [id number] on Dec 10, 2021@08:31 Tests performed on Urlist (405) SN:[id number] Ordering Provid er: ISATU TODD Report Released Date/Time: Dec 10, 2021 07:22 AM Reporting Lab: [place] [facility] [address] [place] [facility] [place] [address] Performing Lab: [place] [facility] [address] [place] [facility] [place] [address] UREA NITROGEN 8 7-25 Dec 10, 2021 08:05 AM [place] [facility] PHOSPHORUS Sp ecimen Type: PLASMA Comment: [place] [id number] on Dec 10, 2021@08:31 Tests performed on Urlist (405) SN:[id number] Ordering Provid er: ISATU TODD Report Released Date/Time: Dec 10, 2021 07:22 AM Reporting Lab: [place] [facility] [address] [place] [facility] [place] [address] Performing Lab: [place] [facility] [address] [place] [facility] [place] [address] PHOSPHORUS 1.8 L 2.5-5.0 Dec 10, 2021 08:05 AM [place] [facility] GLUCOSE Sp ecimen Type: PLASMA Comment: [place] [id number] on Dec 10, 2021@08:31 Tests performed on Urlist (405) SN:[id number] Ordering Provid er: ISATU TODD Report Released Date/Time: Dec 10, 2021 07:22 AM Reporting Lab: [place] [facility] [address] [facility] [address] Performing Lab: [place] [facility] [address] [facility] [address] GLUCOSE 144 H 65-100 Dec 10, 2021 08:05 AM [place] [facility] ELECTROLYTES Sp ecimen Type: PLASMA Comment: [place] [id number] on Dec 10, 2021@08:31 Tests performed on Urlist (405) SN:[id number] Ordering Provid er: ISATU TODD Report Released Date/Time: Dec 10, 2021 07:22 AM Reporting Lab: [place] [facility] [address] [facility] [address] Performing Lab: [place] [facility] [address] [facility] [address] SODIUM 139 135-145 POTASSIUM 3.7 3.5-5.0 CHLORIDE 107 100-110 CARBON DIOXIDE 24 20-30 ANION GAP 8 4-16 Dec 10, 2021 08:05 AM [place] [facility] CALCIUM Sp ecimen Type: PLASMA Comment: [place] [id number] on Dec 10, 2021@08:31 Tests performed on Urlist (405) SN:[id number] Ordering Provid er: ISATU TODD Report Released Date/Time: Dec 10, 2021 07:22 AM Reporting Lab: [place] [facility] [address] [facility] [address] Performing Lab: [place] [facility] [address] [facility] [address] CALCIUM 8.3 L 8.5-10.5 Dec 10, 2021 08:05 AM [place] [facility] CBC PROFILE Sp ecimen Type: BLOOD No comment enter ed. Ordering Provid er: ISATU TODD Report Released Date/Time: Dec 10, 2021 07:22 AM Reporting Lab: [place] [facility] [address] [facility] [address] Performing Lab: [place] [facility] [address] [facility] [address] WBC 7.0 4.5-11.0 RBC 4.54 4.23-5.66 HGB [...] PLASMA AM [facility] PANEL [place]: [place] [id number] on Dec 10, 2021@08:31 Tests performed on Urlist (405) SN:[id number] Ordering Provid er: ISATU TODD Report Released Date/Time: Dec 10, 2021 07:22 AM Reporting Lab: [facility] [address] [facility] [address] Performing Lab: [facility] [address] [facility] [address] CREATININE 0.78 0.5-1.5 eGFR(CKD-EPI 2020) >90.0 >60 Dec 09, 2021 06:46 AM [place] [facility] MAGNESIUM Sp ecimen Type: PLASMA Comment: Tests performed on Urlist (405) SN:[id number] Ordering Provid er: ISATU TODD Report Released Date/Time: Dec 08, 2021 10:23 AM Reporting Lab: [place] T [facility] [address] [facility] [address] Performing Lab: [place] T [facility] [address] [facility] [address] MAGNESIUM 1.6 1.6-2.6 Dec 09, 2021 [facility] P4 GLU,BUN,CREAT,LYTES,CA Speci men Type: PLASMA 06:46 AM [facility] Comment: Tests performed on Urlist (405) SN:[id number] Ordering Provid er: ISATU TODD Report Released Date/Time: Dec 08, 2021 05:00 PM Reporting Lab: [facility] [address] [facility] [address] Performing Lab: [facility] [address] [facility] [address] UREA NITROGEN 6 L 7-25 SODIUM 134 [...] Lab: [facility] [address] [facility] [address] Performing Lab: [facility] [address] [facility] [address] WBC 7.1 4.5-11.0 RBC 4.40 4.23-5.66 HGB [...] 0-0 Dec 08, 2021 06:39 AM [place] Hyper[employer] T [facility] MAGNESIUM Sp ecimen Type: PLASMA Comment: Testin g Performed on Urlist (405) SN:[id number] Ordering Provid er: ISATU TODD Report Released Date/Time: Dec 07, 2021 10:32 AM Reporting Lab: [facility] [address] [facility] [address] Performing Lab: [facility] [address] [facility] [address] MAGNESIUM 1.5 L 1.6-2.6 Dec 08, 2021 [place] Hyper9 T P4 GLU,BUN,CREAT,LYTES,CA Speci men Type: PLASMA 06:39 AM [facility] Comment: Testin g Performed on Urlist (405) SN:[id number] Ordering Provid er: ISATU TODD Report Released Date/Time: Dec 07, 2021 10:32 AM Reporting Lab: [id number] T [facility] [address] [facility] [address] Performing Lab: [facility] [address] [facility] [address] UREA NITROGEN 6 L 7-25 SODIUM 136 135-145 POTASSIUM 3.3 L 3.5-5.0 CHLORIDE 104 100-110 CARBON DIOXIDE 22 20-30 ANION GAP 10 4-16 GLUCOSE 133 H 65-100 CREATININE 0.76 0.5-1.5 CALCIUM 8.4 L 8.5-10.5 eGFR(CKD-EPI 2020) >90.0 >60 Dec 08, 2021 06:39 AM [place] Hyper9 T [facility] CBC PROFILE Sp ecimen Type: BLOOD No comment enter ed. Ordering Provid er: ISATU TODD Report Released Date/Time: Dec 07, 2021 10:32 AM Reporting Lab: [facility] [address] [facility] [address] Performing Lab: [facility] [address] [facility] WBC 8.4 [...] NRBC 0.00 0-0 Dec 07, 2021 06:42 [facility] LIVER PROFILE Specimen Typ e: PLASMA AM [facility] Comment: Tests performed on Urlist (405 SN:[id number] Ordering Provid er: PORFIRIO WALTERS Report Released Date/Time: Dec 06, 2021 06:57 PM Reporting Lab: [facility] [address] [facility] [address] Performing Lab: [facility] [address] [facility] [address] PROTEIN, TOTAL 5.7 L 6.0-8.5 ALBUMIN 2.4 L 3.2-5.0 BILIRUBIN, TOTAL 0.4 0.2-1.2 ALKALINE PHOSPHATASE 109 40-150 ALT(SGPT) 10 7-52 AST(SGOT) 15 5-34 FIB-4 SCORE 1.92 <2.67 Dec 07, 2021 [facility] P4 GLU,BUN,CREAT,LYTES,CA Speci men Type: PLASMA 06:42 AM [facility] Comment: Tests performed on Urlist (405) SN:[id number] Ordering Provid er: PORFIRIO WALTERS Report Released Date/Time: Dec 06, 2021 06:57 PM Reporting Lab: [place] [facility] [address] [facility] [address] Performing Lab: [place] [facility] [address] [facility] [address] UREA NITROGEN 9 7-25 SODIUM 135 135-145 POTASSIUM 3.5 3.5-5.0 CHLORIDE 103 100-110 CARBON DIOXIDE 22 20-30 ANION GAP 10 4-16 GLUCOSE 92 65-100 CREATININE 0.73 0.5-1.5 CALCIUM 8.0 L 8.5-10.5 eGFR(CKD-EPI 2020) >90.0 >60 Dec 07, 2021 06:42 AM [place] CBC PROFILE Specimen Type: BLOOD [facility] No comment enter ed. Ordering Provid er: PORFIRIO WALTERS Report Released Date/Time: Dec 06, 2021 06:57 PM Reporting Lab: [place] [facility] [address] [facility] [address] Performing Lab: [facility] [address] [facility] [address] WBC 5.7 4.5-11.0 RBC 4.15 L 4.23-5.66 [...] [facility]AM[facility] %) AUTOMATED Comment: Tests performed on Urlist (405) SN:[id number] Ordering Provid er: ISATU TODD Report Released Date/Time: Dec 07, 2021 10:28 AM Reporting Lab: [place] [facility] [address] [facility] [address] Performing Lab: [place] [facility] [address] [facility] [address] RETICULOCYTES (%) AUTOMATED 1.23 0. 6-2.0 RETICULOCYTES (ABS) AUTOMATED 0.052 0.030-0.090 Dec 06, 2021 09:45 [place] MRSA SURVL NARES Specimen Ty pe: NARES PM [facility] DNA No comment enter ed. Ordering Provid er: ALVARO VARGHESE Report Released Date/Time: Dec 07, 2021 02:20 AM Reporting Lab: [place] [facility] [address] [facility] [address] Performing Lab: [place] [facility] [address] [facility] [address] MRSA SURVL NARES DNA NEGATIVE NEGATIVE Dec 06, 2021 06:00 [place] URINALYSIS W/REFLEX TO Speci men Type: URINE PM [facility] CULTURE No comment enter ed. Ordering Provid er: JELANI SÁNCHEZ Report Released Date/Time: Dec 06, 2021 11:57 AM Reporting Lab: [place] [facility] [address] [facility] [address] Performing Lab: [place] [facility] [address] [facility] [address] URINE COLOR Arlin YELLOW SPECIFIC GRAVITY 1.029 [...] 21, [place] Comment: https://www.cdc.gov/coronavirus/2019-ncov/cases-updates/variant- surveillance/variant-info.html The Hatsize SARS CoV 2 [employer] Assay-GX is a next-generation sequencing (NGS) assa 2021 [facility] SEQUENCING y that determine s the complete genome sequence of the SARS-CoV-2 virus. The assay contains variant-tolerant primers to broaden and improve the coverage for variant detection and increase the sensitivity 12:00 [facility] PNL(WH) of the panel to enable detection from lower viral titer samples. The assay is run on the TapPress Sequencer, which performs automated library preparation, sequencing, analysis, and reporting. PM The sequence an alysis includes determination of viral phylogenetic lineage by comparison to the reference strain Wuhan-Hu-1, GenBank: [id number]. Sequence determination may not be possible owing [...] [facility] [address] [facility] [address] Performing Lab: [facility] [address] [facility] [address] SARS-CoV-2 CLADE() 22C (OMICRON) SARS-CoV-2 LINEAGE() BA.2.12.1 Dec 06, 2021 12:00 [facility] COVID-19 AG SCREEN Specimen Type: NASAL CAVITY PM [facility] PANEL BINAX(405) Comment: Testi ng Performed By: Mike Briscoe Ordering Provid er: JELANI SÁNCHEZ Report Released Date/Time: Dec 08, 2021 08:23 AM Reporting Lab: [facility] [address] [facility] [address] Performing Lab: [facility] [address] [facility] [address] COVID-19 AG SCRN(wrj BINAX) POSITIVE HH NE G Dec 06, 2021 12:00 PM [facility] TROPONIN II Sp ecimen Type: PLASMA Comment: Tests performed on Pham Assistant Property Manager (405) SN:[id number] Ordering Provid er: JELANI SÁNCHEZ Report Released Date/Time: Dec 06, 2021 11:57 AM Reporting Lab: [facility] [address] [facility] [address] Performing Lab: [facility] [address] [facility] [address] TROPONIN II 0.03 0.00-0.29 Dec 06, 2021 [place] P4 GLU,BUN,CREAT,LYTES,CA Speci men Type: PLASMA 12:00 PM [facility] Comment: Testin g Performed on Pham Assistant Property Manager (405) SN:[id number] Ordering Provid er: JELANI SÁNCHEZ Report Released Date/Time: Dec 06, 2021 11:57 AM Reporting Lab: [place] [facility] [address] [facility] [address] Performing Lab: [place] [facility] [address] [facility] [address] UREA NITROGEN 13 7-25 SODIUM 138 135-145 POTASSIUM 3.8 3.5-5.0 CHLORIDE 103 100-110 CARBON DIOXIDE 23 20-30 ANION GAP 12 4-16 GLUCOSE 105 H 65-100 CREATININE 0.90 0.5-1.5 CALCIUM 8.7 8.5-10.5 eGFR(CKD-EPI 2020) >90.0 >60 Dec 06, 2021 12:00 PM [facility] LIVER PROFILE Sp ecimen Type: PLASMA Comment: Testin g Performed on Pham Assistant Property Manager (405) SN:[id number] Ordering Provid er: JELANI SÁNCHEZ Report Released Date/Time: Dec 06, 2021 11:57 AM Reporting Lab: [facility] [address] [facility] [address] Performing Lab: [facility] [address] [facility] [address] PROTEIN, TOTAL 6.6 6.0-8.5 ALBUMIN 2.8 L 3.2-5.0 BILIRUBIN, TOTAL 0.6 0.2-1.2 ALKALINE PHOSPHATASE 134 40-150 ALT(SGPT) 13 7-52 AST(SGOT) 18 5-34 FIB-4 SCORE 1.94 <2.67 Dec 06, 2021 12:00 PM [facility] BNP(P) Sp ecimen Type: PLASMA Comment: Tests performed on Pham Assistant Property Manager (405) SN:[id number] Ordering Provid er: JELANI SÁNCHEZ Report Released Date/Time: Dec 06, 2021 11:57 AM Reporting Lab: [facility] [address] [facility] [address] Performing Lab: [facility] [address] [facility] [address] BNP(P) 224.8 H 10-100 Dec 06, 2021 [facility] COVID-19+FLU/RSV DIAGNOSTIC Spe cimen Type: NASOPHARYNX 12:00 PM [facility] PANEL(405) Comment: Tests performed on [employer] AS Genexpert (405) Critical results called to and read back by: ALESHIA WILKINSON RN 12/06/21 @ 1312 Ordering Provid er: JELANI SÁNCHEZ Report Released Date/Time: Dec 06, 2021 11:57 AM Reporting Lab: [facility] [address] [facility] [address] Performing Lab: [place] [facility] [address] [facility] [address] FLU A(PCR) NEGATIVE NEGATIVE FLU B(PCR) NEGATIVE NEGATIVE RSV(PCR) NEGATIVE NEGATIVE COVID-19([id number]) DETECTED HH NO T DETECTED Dec 06, 2021 12:00 PM [facility] Sp ecimen Type: BLOOD No comment enter ed. Ordering Provid er: JELANI SÁNCHEZ Report Released Date/Time: Dec 06, 2021 11:57 AM Reporting Lab: [facility] [address] [facility] [address] Performing Lab: [facility] [address] [facility] [address] WBC 7.2 4.5-11.0 RBC 4.86 4.23-5.66 HGB [...] 2021 07:43 /min mm[Hg] [place] [facility] Dec 12, 0 [place] 2021 07:37 [place] [facility] Dec 12, 0 [place] 2021 02:17 [place] [facility] Dec 12, 98 F 82 127/76 18 /min 97 % WH[place] 2021 02:01 /min mm[Hg] [place] [facility] Dec 12, 0 2021 10:59 [place] [...] QUIT TOBACCO USE 1-7 YEARS AGO [facility] Feb 21, 2019 04:11 PM QUIT TOBACCO USE 1-7 YEARS AGO [facility] Feb 20, 2019 03:38 PM QUIT TOBACCO USE 1-7 YEARS AGO [facility] Feb 03, 2019 09:50 AM QUIT TOBACCO USE 1-7 YEARS AGO [facility] May 25, 2016 11:53 PM QUIT TOBACCO USE IN PAST YEAR [facility] May 23, 2016 06:57 PM QUIT [...] W/WO CONTRAST: MARYELLEN LONG LUCAS LARES N [id number] -1950 [facility]3] Exm Date: DEC 13, 2021@12:57 Req Phys: ISATU TODD Loc: OP Unknown/0 12-15-2021@13:20 Img Loc: MRI IMAGING (OOS) Service: [facility] MEDICINE (Case [id number] COMPLETE) MRI ABDOMEN W/WO CONTRAST (M RI Detailed) CPT:17926 Reason for Study: further characterization of a [...] new lyphadenopathy REQUESTING MD: Isatu Todd PAGER: [phone] PHONE: [phone] Weight: 232.2 lb [105.32 kg] (12/12/2021 05:00) [...] patient will need to arrange for a six horse hitch driver to take him/her home after the [...] 15, 2021 Date Verified: DEC 15, 2021 Research Geologist E-Sig:/ES/MARYELLEN LONG Report: MRI ABDOMEN W/WO CONTRAST [...] MALIGNANCY Primary Interpreting Staff: MARYELLEN LONG Staff (Research Geologist) / Dec 10, 2021 09:[address] ABDOMEN & PELVIS: [facility] BENITA MEEKL[facility] N [id number] -1950 SERVICE [facility] Ex Date: DEC 10, 2021@09:30 Req Phys: ISATU TODD Loc: 1S MED/12-10@10:57 Img Loc: CT SCAN (OOS) Service: [facility] MEDICINE (Case [id number] COMPLETE) CT ABD & PELVIS WITHOUT CONT RAST (CT Detailed) CPT:37257 Reason for Study: 71 yo male with [...] INDEX - NO HEIGHTS FOUND Pager number: [phone] STAT orders MUST be call ed to RADIOLOGY [phone] to speak to the appropriate bioprocessing manufacturing technician. Report Status: Verified Date Reported: DEC 10, 2021 Date Verified: DEC 10, 2021 Research Geologist E-Sig: Report: EXAM: CT abdomen and pelvis [...] ph nodes. READING PHYSICIAN: Ramone Munoz D.O. -[id number] 12/10/2021 10:55 EDT [facility] National Teleradiology Program [phone] (For Medical Practitioner Use Only ) [address] [place] [address] Attention Patients / Veterans: If you have ques tions or concerns about these test results, please contact your o rdering provider or primary care team. Primary Diagnostic Code: SIGNIFICANT ABNORMALIT Y, ATTN NEEDED Primary Interpreting Staff: RADIOLOGY,OUTSIDE SERVICE, Staff Physician / Dec 09, 2021 07:34 AM BASW (MODIFIED): JESSIE CHENEY TARA ER JCLUCAS LARES N [id number] -1950 [facility] Exm Date: DEC 09, 2021@07:34 Req Phys: PEYTONISATU Manjarrez Loc: 1S MED/12-09@11:26 Img Loc: XRAY (OOS) Service: [facility] MEDICINE (Case [id number] COMPLETE) BASW (MODIFIED) (RAD Detaile d) CPT:35398 Contrast Media : Barium Reason for Study: dysphagia ?esophageal spasm Clinical History: Report Status: Verified Date Reported: DEC 09, 2021 Date Verified: DEC 09, 2021 Research Geologist E-Sig:/ES/JESSIE CHENEY Report: BASW (MODIFIED) , 12/09/2021 [...] REQUIRED Primary Interpreting Staff: JESSIE CHENEY, RADIOLOGIST (Research Geologist) /TLC Dec 06, 2021 12:[address] CHEST (INCLUDES ADRENALS): JESSIE CHENEY LUCAS LARES N [id number] -1950 M [facility] Exm Date: DEC 06, 2021@12:59 Req Phys: JELANI SÁNCHEZ Pat Loc: [facility] ED DAYS M 1RD (Req'g Loc) Img Loc: CT SCAN (OOS) Service: Unknown (Case [id number] COMPLETE) CT THORAX W/O CONT (CT Detai led) CPT:79644 Reason for Study: Opacification right chest Clinical History: No contrast allergy BUN: 13 (12/06/21 12:00) CREATI: 0.90 (12/06/21 12:00) eGFR 05/16/21 09:43 52 L Weight: 232.6 lb [105.51 kg] (12/06/2021 11:40) BODY MASS INDEX - NO HEIGHTS FOUND Pager number: [phone] STAT orders MUST be called t o RADIOLOGY [phone] to speak to the appropriate bioprocessing manufacturing technician. Indications - Other: Opacification right chest, covid positive, lung cancer histo Report Status: Verified Date Reported: DEC 06, 2021 Date Verified: DEC 06, 2021 Research Geologist E-Sig:/ES/JESSIE CHENEY Report: CT THORAX W/O CONT [...] REQUIRED Primary Interpreting Staff: JESSIE CHENEY, RADIOLOGIST (Research Geologist) Primary Interpreting Resident: PRINCE CHAMPION, Resident /BR Dec 06, 2021 11:58 AM CHEST SINGLE VIEW: JESSIE CHENEY DOUGLAS N [id number] -1950 M [facility] Exm Date: DEC 06, 2021@11:58 Req Phys: GONZALO,JELANI Link Pat Loc: [facility] ED DAYS M 1RD (Req'g Loc) Img Loc: XRAY (OOS) Service: Unknown (Case [id number] COMPLETE) CHEST SINGLE VIEW (RAD Detai led) CPT:01461 Proc Modifiers : PORTABLE EXAM Reason for Study: SOB, home covid test positive Clinical History: Report Status: Verified Date Reported: DEC 06, 2021 Date Verified: DEC 06, 2021 Research Geologist E-Sig:/ES/JESSIE CHENEY Report: Exam type: Chest x-ray [...] REQUIRED Primary Interpreting Staff: JESSIE CHENEY, RADIOLOGIST (Research Geologist) /TLC Pathology Reports: +/- 30 days of [...] Lab: [facility] [CLIA# [id number]] [address] [place] [address] - - - - - - [...] automatically d ocumented from SURGERY package case #[id number] Field (#32) PRINCIPAL PRE-OP DIAGNOSIS, (#.72) OTHER [...] automatically d ocumented from SURGERY package case #[id number] Field (#34) PRINCIPAL POST-OP DIAG, (#.74) OTHER [...] Label: Lucas Meek Paperwork: Lucas Meek Cassette: [id number];..;KALYANI;.;405;[phone] Specimen is labeled: ES bx Received in formalin are several pieces of pale boyd and brown tissue, 1.2 x 0.7 cm in aggregate. Submitted entirely in 1 cassette [id number];..;KALYANI;.;405;[id number] SAW 12/15/2021 Microscopic exam: *+* MODIFIED REPORT *+* (Last modified: JAN 03, 2022@09:30:20 typed by NIURKA WADDELL) DIAGNOSIS: A. 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 Kendell long. TIARA Coombs was notified on 12/21/21. Modified on 01/03/22 to include report from [facility] stating that tumor is NEGATIVE for her2/ matheus amplification. The attending pathologist who signature mansoor ears on this report has reviewed all diagnostic slides and has edited t he gross and/or microscopic portion of this report in rendering the final pathologic diagnosis. [address] [address] CPT: 30094 /emely/ NIURKA Yeung MD Signed Jan 03, 2022@10:28 Performing Laboratory: Surgical Pathology Report Performed By: [facility] [CLIA# [id number]] [address] [place] [address] $FTR - - - - - [...] - - LUCAS MEEK STANDARD FORM 515 ID:[id number] SEX:M :1950 AGE: 71 LOC: SDM END [...] Reporting Lab: [facility] [CLIA# [id number]] [address] [place] [address] - - - - - - [...] automatically d ocumented from SURGERY package case #[id number] Field (#32) PRINCIPAL PRE-OP DIAGNOSIS, (#.72) OTHER [...] automatically d ocumented from SURGERY package case #[id number] Field (#34) PRINCIPAL POST-OP DIAG, (#.74) OTHER [...] Label: Lucas Meek Paperwork: Lucas Meek Cassette: [id number];..;AKLYANI;.;405;[phone] Specimen is labeled: ES bx Received in formalin are several pieces of pale boyd and brown tissue, 1.2 x 0.7 cm in aggregate. Submitted entirely in 1 cassette [id number];..;KALYANI;.;405;[id number] SAW 12/15/2021 Microscopic exam: DIAGNOSIS: A. 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 Kendell long. TIARA Coombs was notified on 12/21/21. The attending pathologist who signature mansoor ears on this report has reviewed all diagnostic slides and has edited t he gross and/or microscopic portion of this report in rendering the final pathologic diagnosis. [address] [address] CPT: 03398 /emely/ NIURKA Yeung MD Signed Dec 21, 2021@11:46 Performing Laboratory: Surgical Pathology Report Performed By: [facility] [CLIA# [id number]] [address] [place] [address] $FTR - - - - - [...] - - LUCAS MEEK STANDARD FORM 515 ID:[id number] SEX:M :1950 AGE: 71 LOC: SDM END PCP: Isatu Todd /charmaine Yeung MD Signed: 12/21/2021 11:46 Dec 06, 2021 03:30 PM LR MICROBIOLOGY REPORT: [facility] Reporting Lab: [facility] [CLIA# [id number]] [address] [place] [address] Accession [UID]: [id number] [[id number]] Receiv ed: Dec 06, 2021@16:14 Collection sample: BLOOD CUL T BOTTLE(NIRMAL/AERO)Collection date: Dec 06, 2021 15:30 Site/Specimen: BLOOD Provider: JELANI SÁNCHEZ Comment on specimen: LAC Test(s) ordered: BLOOD CULTURE ANAEROBI C....... completed: Dec 12, 2021 06:18 * BACTERIOLOGY FINAL REPORT => Dec 12, 2021 06:1 8 TECH CODE: [id number] Bacteriology Remark(s): NO GROWTH IN 5 DAYS =--=--=--=--=--=--=--=--=--=--=--=--=--= --=--=--=--=--=--=--=--=--=--=--=--=-- Performing Laboratory: Bacteriology Report Performed By: [facility] [CLIA# [id number]] [address] [place] [address] Dec 06, 2021 03:30 PM LR MICROBIOLOGY REPORT: [facility] Reporting Lab: [facility] [CLIA# [id number]] [address] [place] [address] Accession [UID]: [id number] [[id number]] Receiv ed: Dec 06, 2021@16:14 Collection sample: BLOOD CUL T BOTTLE(NIRMAL/AERO)Collection date: Dec 06, 2021 15:30 Site/Specimen: BLOOD Provider: JELANI SÁNCHEZ Comment on specimen: LAC Test(s) ordered: BLOOD CULTURE AEROBIC. ........ completed: Dec 12, 2021 06:17 * BACTERIOLOGY FINAL REPORT => Dec 12, 2021 06:1 7 TECH CODE: [id number] Bacteriology Remark(s): NO GROWTH IN 5 DAYS =--=--=--=--=--=--=--=--=--=--=--=--=--= --=--=--=--=--=--=--=--=--=--=--=--=-- Performing Laboratory: Bacteriology Report Performed By: [facility] [CLIA# [id number]] [address] [place] [address]"
--- OUTSIDE RECORDS SUMMARY | 2022-01-19 09:27 | XMS_ITS | Encounter Summary ---
:1950 Author Organization Department [facility] Address [address] [place] [id number] Support Name Relationship Address Phone YUSRA MEEK Unavailable [address] [place] [facility] [address] YSURA MEEK Unavailable [address] [place] [facility] [place] [address] CLAY MOSLEY Unavailable Unavailable SJ SANTACRUZ Unavailable [...] MEDICARE MEDICARE PART Jun 18, PART A [id number] DO KALYANI PATIENT (WNR) (M) A 2016 13A 1 UGLAS MEDICARE MEDICARE PART Jun 18, PART B [id number] MEEK DO PATIENT (WNR) (M) B 2016 13A 1 UGLAS MEDICARE MEDICARE PART Jun 18, PART A [id number] KALYANIDO PATIENT (WNR) (M) A 2017 VH81 2 UGLAS MEDICARE MEDICARE PART Jun 18, PART B [id number] DO KALYANI PATIENT (WNR) (M) B 2017 VH81 2 LAS UNITED MEDICARE MCR(Jun 18 [id number] Luz MEEK PATIENT HEALTHCARE ADVANTAGE NR) 2021 37 0 [facility] (WNR) Selected Encounter This section includes the information on record at [place] for the Encounter. Date/Time Encounter Type Encounter Description Reason Provider Source Jan 02, 2022 08:00 Outpatient Encounter PRIMARY CARE/MEDICINE AM I[facility] Encounter Template Text not used by [place] Plan of Treatment: Future Appointments (+ 6 months) and Future Tests (+/- 45 days) The Plan of Treatment section includes future care activities for the patient from [facility] [place] [facility] This section includes future appointments and future [...] 21, 2022 10:00 AM AMBULATORY - SURGERY [place] [facility] Mar 21, 2022 10:30 AM [...] The data comes from all [place] treatment [facility]. Test Date/Time Test Type Test Details Facility Name Dec 06, 2021 12:52 PM Pharmacy - [...] OUTPATIENT Cons [facility] Manager [facility] Choice Jan 15, 2022 10:08 PM Consult Order [facility] CARE-PALLIATIVE CARE Cons Manager Icu[facility] Choice Lab Results: +/- 30 days of the encounter This section includes the Chemistry and Hematology Lab Results on record with [place] for the patient. Radiology Reports and Pathology Reports are provided separately, in subsequent sections.Lab Results This section contains the Chemistry/Hematology Results that were resulted 30 days before or 30 daysafter the date of the Encounter. Date/Time Source Result Type Result - Unit Interpretation Reference Range Comment Dec 15, 2021 [facility] P4 GLU,BUN,CREAT,LYTES,CA Speci men Type: PLASMA 06:43 AM [facility] Comment: Tests performed on Extenda-Dent (405) SN:[id number] Ordering Provid er: ISATU TODD Report Released Date/Time: Dec 11, 2021 07:42 AM Reporting Lab: [facility] [address] [facility] [address] Performing Lab: [facility] [address] [facility] [address] UREA NITROGEN 9 7-25 SODIUM 137 135-145 POTASSIUM 3.8 3.5-5.0 CHLORIDE 105 100-110 CARBON DIOXIDE 26 20-30 ANION GAP 6 4-16 GLUCOSE 102 H 65-100 CREATININE 0.64 0.5-1.5 CALCIUM 8.1 L 8.5-10.5 eGFR(CKD-EPI 2020) >90.0 >60 Dec 15, 2021 06:43 AM [facility] CBC PROFILE Sp ecimen Type: BLOOD No comment enter ed. Ordering Provid er: ISATU TODD Report Released Date/Time: Dec 10, 2021 07:22 AM Reporting Lab: [facility] [address] [facility] [address] Performing Lab: [facility] [address] [facility] [address] WBC 5.7 4.5-11.0 RBC 4.22 L 4.23-5.66 [...] CYTOGENETIC Specimen Type: ESOPHAGUS 02:59 PM [facility] FISH([facility]) Comment: ~For T est: CYTOGENETIC FISH([facility]) ~FISH HER 2 NUE, FFPE See full report in Wooop Image display viewer/tab#LAB-Reference Ordering Provid er: NIURKA MILLER Report Released Date/Time: Dec 21, 2021 12:11 PM Reporting Lab: [facility] [address] [facility] [address] Performing Lab: [facility] CYTOGENETIC FISH([facility]) comment Dec 14, 2021 [facility] P4 GLU,BUN,CREAT,LYTES,CA Speci men Type: PLASMA 06:27 AM [facility] Comment: Tests performed on Extenda-Dent (405) SN:[id number] Ordering Provid er: SIATU TODD Report Released Date/Time: Dec 11, 2021 07:42 AM Reporting Lab[facility] [address] [facility] [address] Performing [facility]: [facility] [address] [facility] [address] UREA NITROGEN 10 7-25 SODIUM 137 135-145 POTASSIUM 4.0 3.5-5.0 CHLORIDE 104 100-110 CARBON DIOXIDE 25 20-30 ANION GAP 8 4-16 GLUCOSE 99 65-100 CREATININE 0.67 0.5-1.5 CALCIUM 8.2 L 8.5-10.5 eGFR(CKD-EPI 2020) >90.0 >60 Dec 14, 2021 06:27 AM [facility] CBC [facility]FILE Sp ecimen Type: BLOOD No comment enter ed. Ordering Provid er: ISATU TODD Report Released Date/Time: Dec 10, 2021 07:22 AM Reporting Lab: [facility] [address] [facility] [address] Performing Lab: [facility] [address] [facility] [address] WBC 6.0 4.5-11.0 RBC 4.29 4.23-5.66 HGB [...] [facility] Comment: Tests performed on Extenda-Dent (861) SN:[id number] Ordering Provid er: ISATU TODD Report Released Date/Time: Dec 11, 2021 07:42 AM Reporting Lab: [facility] [address] [facility] [address] Performing Lab: [facility] [address] [facility] [address] UREA NITROGEN 12 7-25 SODIUM 136 135-145 [...] Reporting Lab: [facility] [address] [facility] [address] Performing Lab: [facility] [address] [facility] [address] WBC 5.6 4.5-11.0 RBC 4.28 4.23-5.66 HGB [...] [facility] Comment: Tests performed on Extenda-Dent (405) SN:[id number] Ordering Provid er: ISATU TODD Report Released Date/Time: Dec 11, 2021 07:42 AM Reporting Lab: [facility] [address] [facility] [address] Performing Lab: [facility] [address] [place] [address] UREA NITROGEN 11 7-25 SODIUM 139 135-145 [...] [facility] [address] [place] [address] Performing Lab: [facility] [address] [place] [address] WBC 5.5 4.5-11.0 RBC 4.37 4.23-5.66 HGB [...] 0.00 0-0 Dec 12, 2021 06:00 AM [facility] MAGNESIUM Sp ecimen Type: PLASMA Comment: Testin g Performed on Extenda-Dent (405) SN:[id number] Ordering Provid er: [facility] Yao Report Released Date/Time: Dec 12, 2021 08:24 AM Reporting Lab: [facility] [address] [facility] [address] Performing Lab: [facility] [address] [facility] [address] MAGNESIUM 1.8 1.6-2.6 Dec 12, 2021 06:00 AM [facility] PHOSPHORUS Sp ecimen Type: PLASMA Comment: Testin g Performed on Extenda-Dent (405) SN:[id number] Ordering Provid er: [facility] Yao Report Released Date/Time: Dec 12, 2021 08:24 AM Reporting Lab: [facility] [address] [facility] [address] Performing Lab: [facility] [address] [facility] [address] PHOSPHORUS 3.1 2.5-5.0 Dec 11, 2021 06:15 AM [facility] ELECTROLYTES Sp ecimen Type: PLASMA Comment: Tests performed on Extenda-Dent (405) SN:[id number] Ordering Provid er: [facility] Yao Report Released Date/Time: Dec 10, 2021 07:22 AM Reporting Lab: [facility] [address] [facility] [address] Performing Lab: [facility] [address] [facility] [address] SODIUM 137 135-145 POTASSIUM 4.3 3.5-5.0 CHLORIDE 108 100-110 CARBON DIOXIDE 20 20-30 ANION GAP 9 4-16 Dec 11, 2021 06:15 AM [facility] CBC PROFILE Sp ecimen Type: BLOOD Comment: Result s checked Ordering Provid er: [facility] Yao Report Released Date/Time: Dec 10, 2021 07:22 AM Reporting Lab: [facility] [address] [facility] [address] Performing Lab: [place] [facility] [address] [facility] [address] WBC 5.8 4.5-11.0 RBC 4.37 4.23-5.66 HGB [...] 2021 06:00 AM [facility] PHOSPHORUS Sp ecimen Type: PLASMA Comment: Tests performed on Extenda-Dent (405) SN:[id number] Results checked Ordering Provid er: ISATU TODD Report Released Date/Time: Dec 11, 2021 07:44 AM Reporting Lab: [facility] [address] [facility] [address] Performing Lab: [facility] [address] [facility] [address] PHOSPHORUS 3.0 2.5-5.0 Dec 10, 2021 08:05 AM [facility] MAGNESIUM Sp ecimen Type: PLASMA Comment: [place] [id number] on Dec 10, 2021@08:31 Tests performed on Extenda-Dent (405) SN:[id number] Ordering Provid er: ISATU TODD Report Released Date/Time: Dec 10, 2021 07:22 AM Reporting Lab: [place] [facility] [address] [facility] [place] [address] Performing Lab: [place] [facility] [address] [facility] [place] [address] MAGNESIUM 1.7 1.6-2.6 Dec 10, 2021 08:05 AM [place] [facility] PHOSPHORUS Sp ecimen Type: PLASMA Comment: [place] [id number] on Dec 10, 2021@08:31 Tests performed on Pham [employer]OLOR [employer]otech (405) SN:[id number] Ordering Provid er: ISATU TODD Report Released Date/Time: Dec 10, 2021 07:22 AM Reporting Lab: [place] [facility] [address] [facility] [place] [address] Performing Lab: [place] [facility] [address] [facility] [address] PHOSPHORUS 1.8 L 2.5-5.0 Dec 10, 2021 08:05 AM [place] UREA NITROGEN Specimen Type: PLASMA [facility] Comment: [place] [id number] on Dec 10, 2021@08:31 Tests performed on Extenda-Dent (405) SN:[id number] Ordering Provid er: ISATU TODD Report Released Date/Time: Dec 10, 2021 07:22 AM Reporting Lab: [place] [facility] [address] [facility] [place] [address] Performing Lab: [place] [facility] [address] [facility] [place] [address] UREA NITROGEN 8 7-25 Dec 10, 2021 08:05 AM [place] [facility] GLUCOSE Sp ecimen Type: PLASMA Comment: [place] [id number] on Dec 10, 2021@08:31 Tests performed on Extenda-Dent (405) SN:[id number] Ordering Provid er: ISATU TODD Report Released Date/Time: Dec 10, 2021 07:22 AM Reporting Lab: [place] [facility] [address] [facility] [place] [address] Performing Lab: [place] [facility] [address] [facility] [place] [address] GLUCOSE 144 H 65-100 Dec 10, 2021 08:05 [place] CREATININE WITH eGFR Specime n Type: PLASMA AM [facility] PANEL Comment: [place] [id number] on Dec 10, 2021@08:31 Tests performed on Pham [employer] (405) SN:[id number] Ordering Provid er: ISATU TODD Report Released Date/Time: Dec 10, 2021 07:22 AM Reporting Lab: [place] [facility] [address] [facility] [address] Performing Lab: [place] [facility] [address] [facility] [address] CREATININE 0.78 0.5-1.5 eGFR(CKD-EPI 2020) >90.0 >60 Dec 10, 2021 08:05 AM [place] [facility] CALCIUM Sp ecimen Type: PLASMA Comment: [place] [id number] on Dec 10, 2021@08:31 Tests performed on Pham Commercial Technician (405) SN:[id number] Ordering Provid er: ISATU TODD Report Released Date/Time: Dec 10, 2021 07:22 AM Reporting Lab: [place] [facility] [address] [facility] [address] Performing Lab: [place] [facility] [address] [facility] [address] CALCIUM 8.3 L 8.5-10.5 Dec 10, 2021 08:05 AM [place] [facility] ELECTROLYTES Sp ecimen Type: PLASMA Comment: [place] [id number] on Dec 10, 2021@08:31 Tests performed on Extenda-Dent (405) SN:[id number] Ordering Provid er: ISATU TODD Report Released Date/Time: Dec 10, 2021 07:22 AM Reporting Lab: [place] [facility] [address] [facility] [address] Performing Lab: [place] [facility] [address] [facility] [place] [address] SODIUM 139 135-145 POTASSIUM 3.7 3.5-5.0 CHLORIDE 107 100-110 CARBON DIOXIDE 24 20-30 ANION GAP 8 4-16 Dec 10, 2021 08:05 AM [place] [facility] CBC PROFILE Sp ecimen Type: BLOOD No comment enter ed. Ordering Provid er: ISATU TODD Report Released Date/Time: Dec 10, 2021 07:22 AM Reporting Lab: [place] [facility] [address] [facility] Performing Lab: [place] [facility] [address] [facility] WBC 7.0 4.5-11.0 RBC 4.54 4.23-5.66 [...] ecimen Type: PLASMA Comment: Tests performed on Extenda-Dent (405) SN:[id number] Ordering Provid er: ISATU TODD Report Released Date/Time: Dec 08, 2021 10:23 AM Reporting Lab: [place] [facility] [address] [facility] Performing Lab: [facility] [address] [facility] MAGNESIUM 1.6 1.6-2.6 Dec 09, 2021 [place] P4 GLU,BUN,CREAT,LYTES,CA Speci men Type: PLASMA 06:46 AM [facility] Comment: Tests performed on Extenda-Dent 405) SN:[id number] Ordering Provid er: ISATU TODD Report Released Date/Time: Dec 08, 2021 05:00 PM Reporting Lab: [facility] [address] [facility] [address] Performing Lab: [facility] [address] [facility] [address] UREA NITROGEN 6 L 7-25 SODIUM 134 [...] [facility] [address] [facility] [address] Performing Lab: [facility] [address] [facility] [address] WBC 7.1 4.5-11.0 RBC 4.40 4.23-5.66 HGB [...] 0.00 0-0 Dec 08, 2021 06:39 AM [facility] MAGNESIUM Sp ecimen Type: PLASMA Comment: Testin g Performed on Extenda-Dent (405) SN:[id number] Ordering Provid er: ISATU TODD Report Released Date/Time: Dec 07, 2021 10:32 AM Reporting Lab: [facility] [address] [facility] [address] Performing Lab: [facility] [address] [facility] [address] MAGNESIUM 1.5 L 1.6-2.6 Dec 08, 2021 [place] P4 GLU,BUN,CREAT,LYTES,CA Speci men Type: PLASMA 06:39 AM [facility] Comment: Testin g Performed on Extenda-Dent (405) SN:[id number] Ordering Provid er: ISATU TODD Report Released Date/Time: Dec 07, 2021 10:32 AM Reporting Lab: [facility] [address] [facility] [address] Performing Lab: [facility] [address] [facility] [address] UREA NITROGEN 6 L 7-25 SODIUM 136 135-145 POTASSIUM 3.3 L 3.5-5.0 CHLORIDE 104 100-110 CARBON DIOXIDE 22 20-30 ANION GAP 10 4-16 GLUCOSE 133 H 65-100 CREATININE 0.76 0.5-1.5 CALCIUM 8.4 L 8.5-10.5 eGFR(CKD-EPI 2020) >90.0 >60 Dec 08, 2021 06:39 AM [facility] CBC PROFILE Sp ecimen Type: BLOOD No comment enter ed. Ordering Provid er: ISATU TODD Report Released Date/Time: Dec 07, 2021 10:32 AM Reporting Lab: [facility] [address] [facility] [address] Performing Lab: [facility] [address] [facility] [address] WBC 8.4 4.5-11.0 RBC 4.75 4.23-5.66 HGB [...] 0.00 0-0 Dec 07, 2021 06:42 [facility] LIVER PROFILE Specimen Typ e: PLASMA AM [facility] Comment: Tests performed on Extenda-Dent (405) SN:[id number] Ordering Provid er: PORFIRIO WALTERS Report Released Date/Time: Dec 06, 2021 06:57 PM Reporting Lab: [facility] [address] [facility] [address] Performing Lab: [facility] [address] [facility] [address] PROTEIN, TOTAL 5.7 L 6.0-8.5 ALBUMIN 2.4 L 3.2-5.0 BILIRUBIN, TOTAL 0.4 0.2-1.2 ALKALINE PHOSPHATASE 109 40-150 ALT(SGPT) 10 7-52 AST(SGOT) 15 5-34 FIB-4 SCORE 1.92 <2.67 Dec 07, 2021 [facility] P4 GLU,BUN,CREAT,LYTES,CA Speci men Type: PLASMA 06:42 [facility] Comment: Tests performed on Extenda-Dent (405) SN:[id number] Ordering Provid er: PORFIRIO WALTERS Report Released Date/Time: Dec 06, 2021 06:57 PM Reporting Lab: [facility] [address] [facility] [address] Performing Lab: [facility] [address] [facility] [address] UREA NITROGEN 9 7-25 SODIUM 135 135-145 POTASSIUM 3.5 3.5-5.0 CHLORIDE 103 100-110 CARBON DIOXIDE 22 20-30 ANION GAP 10 4-16 GLUCOSE 92 65-100 CREATININE 0.73 0.5-1.5 CALCIUM 8.0 L 8.5-10.5 eGFR(CKD-EPI 2020) >90.0 >60 Dec 07, 2021 06:42 AM [facility] CBC PROFILE Specimen Type: BLOOD [facility] No comment enter ed. Ordering Provid er: PORFIRIO WALTERS Report Released Date/Time: Dec 06, 2021 06:57 PM Reporting Lab: [facility] [address] [facility] [address] Performing Lab: [facility] [address] [facility] [address] WBC 5.7 4.5-11.0 RBC 4.15 L 4.23-5.66 [...] [facility] %) AUTOMATED Comment: Tests performed on Extenda-Dent (405) SN:[id number] Ordering Provid er: ISATU TODD Report Released Date/Time: Dec 07, 2021 10:28 AM Reporting Lab: [place] [facility] [address] [facility] [address] Performing Lab: [place] [facility] [address] [facility] [address] RETICULOCYTES (%) AUTOMATED 1.23 0. 6-2.0 RETICULOCYTES (ABS) AUTOMATED 0.052 0.030-0.090 Dec 06, 2021 09:45 [place] MRSA SURVL NARES Specimen Ty pe: NARES PM [facility] DNA No comment enter ed. Ordering Provid er: ALVARO VARGHESE Report Released Date/Time: Dec 07, 2021 02:20 AM Reporting Lab: [place] [facility] [address] [facility] [address] Performing Lab: [place] [facility] [address] [facility] [address] MRSA SURVL NARES DNA NEGATIVE NEGATIVE Dec 06, 2021 06:00 [place] URINALYSIS W/REFLEX TO Speci men Type: URINE PM [facility] CULTURE No comment enter ed. Ordering Provid er: JELANI SÁNCHEZ Report Released Date/Time: Dec 06, 2021 11:57 AM Reporting Lab: [place] [facility] [address] [facility] [address] Performing Lab: [place] [facility] [address] [facility] [address] URINE COLOR Arlin YELLOW SPECIFIC GRAVITY 1.029 [...] 21, [place]IANT Comment: https://www.cdc.gov/coronavirus/2019-ncov/cases-updates/variant- surveillance/variant-info.html The [employer] AmpliSeq SARS CoV 2 Insight Research Assay-GX [...] samples. The assay is run on the Sail[employer] Sequencer, which performs automated library preparation, sequencing, analysis, and reporting. PM The sequence an alysis includes determination of viral phylogenetic lineage by comparison to the reference strain Wuhan-Hu-1, GenBank: [id number]. Sequence determination may not be possible owing [...] 06, 2021 01:13 PM Reporting Lab: [facility] [address] [facility] [address] Performing Lab: [facility] [address] [facility] [address] SARS-CoV-2 CLADE(wh) 22C (OMICRON) SARS-CoV-2 LINEAGE() BA.2.12.1 Dec 06, 2021 12:00 [facility] AG SCREEN Specimen Type: NASAL CAVITY PM [facility] PANEL BINAX(405) Comment: Testi ng Performed By: Mike Briscoe Ordering Provid er: JELANI SÁNCHEZ Report Released Date/Time: Dec 08, 2021 08:23 AM Reporting Lab: [facility] [address] [facility] [address] Performing Lab: [facility] [address] [facility] [address] COVID-19 AG SCRN(wrj BINAX) POSITIVE HH NE G Dec 06, 2021 12:00 PM [facility] TROPONIN II Sp ecimen Type: PLASMA Comment: Tests performed on Pham Commercial Technician (405) SN:[id number] Ordering Provid er: JELANI SÁNCHEZ Report Released Date/Time: Dec 06, 2021 11:57 AM Reporting Lab: [facility] [address] [facility] [address] Performing Lab: [facility] [address] [facility] [address] TROPONIN II 0.03 0.00-0.29 Dec 06, 2021 12:00 PM [facility] LIVER PROFILE Sp ecimen Type: PLASMA Comment: Testin g Performed on Pham [employer] (405) SN:[id number] Ordering Provid er: JELANI SÁNCHEZ Report Released Date/Time: Dec 06, 2021 11:57 AM Reporting Lab: [facility] [address] [facility] [address] Performing Lab: [facility] [address] [facility] [address] PROTEIN, TOTAL 6.6 6.0-8.5 ALBUMIN 2.8 L 3.2-5.0 BILIRUBIN, TOTAL 0.6 0.2-1.2 ALKALINE PHOSPHATASE 134 40-150 ALT(SGPT) 13 7-52 AST(SGOT) 18 5-34 FIB-4 SCORE 1.94 <2.67 Dec 06, 2021 [place] P4 GLU,BUN,CREAT,LYTES,CA Speci men Type: PLASMA 12:00 PM [facility] Comment: Testin g Performed on Phma [employer]ician (405) SN:[id number] Ordering Provid er: JELANI SÁNCHEZ Report Released Date/Time: Dec 06, 2021 11:57 AM Reporting Lab: [facility] [address] [facility] [address] Performing Lab: [place] [facility] [address] [facility] [address] UREA NITROGEN 13 7-25 SODIUM 138 135-145 POTASSIUM 3.8 3.5-5.0 CHLORIDE 103 100-110 CARBON DIOXIDE 23 20-30 ANION GAP 12 4-16 GLUCOSE 105 H 65-100 CREATININE 0.90 0.5-1.5 CALCIUM 8.7 8.5-10.5 eGFR(CKD-EPI 2020) >90.0 >60 Dec 06, 2021 12:00 PM [place] [facility] BNP(P) Sp ecimen Type: PLASMA Comment: Tests performed on Pham [employer]ician (405) SN:[id number] Ordering Provid er: JELANI SÁNCHEZ Report Released Date/Time: Dec 06, 2021 11:57 AM Reporting Lab: [place] [facility] [address] [facility] [address] Performing Lab: [facility] [address] [facility] [address] BNP(P) 224.8 H 10-100 Dec 06, 2021 [facility]+FLU/RSV DIAGNOSTIC Spe cimen Type: NASOPHARYNX 12:00 PM [facility] PANEL(405) Comment: Tests performed on [employer] Genexpert (405) Critical results called to and read back by: ALESHIA WILKINSON RN 12/06/21 @ 1312 Ordering Provid er: JELANI SÁNCHEZ Report Released Date/Time: Dec 06, 2021 11:57 AM Reporting Lab: [place] [facility] [address] [facility] [address] Performing Lab: [place] [facility] [address] [facility] [address] FLU A(PCR) NEGATIVE NEGATIVE FLU B(PCR) NEGATIVE NEGATIVE RSV(PCR) NEGATIVE NEGATIVE COVID-19([facility]) DETECTED HH NO T DETECTED Dec 06, 2021 12:00 PM [facility] CBC PROFILE Sp ecimen Type: BLOOD No comment enter ed. Ordering Provid er: JELANI SÁNCHEZ Report Released Date/Time: Dec 06, 2021 11:57 AM Reporting Lab: [facility] [address] [facility] [address] Performing Lab: [facility] [address] [facility] [address] WBC 7.2 4.5-11.0 RBC 4.86 4.23-5.66 HGB [...] TOBACCO USE > 7 YEARS AGO [facility] Tobacco Use History This section includes a history of the smoking, or tobacco- related health factors, that were collected on or before the date of the Encounter. The data comes from the [place] facility where the Encounter took place. Date/Time Smoking Status/Tobacco Use Comment Facil ity Apr 01, 2020 01:16 PM QUIT TOBACCO USE 1-7 YEARS AGO [facility] Mar 24, 2020 03:00 PM QUIT TOBACCO USE 1-7 YEARS AGO [facility] Feb 21, 2019 04:11 PM QUIT TOBACCO USE 1-7 YEARS AGO [facility] Feb 20, 2019 03:38 PM QUIT TOBACCO USE 1-7 YEARS AGO [facility] Feb 03, 2019 09:50 AM QUIT TOBACCO USE 1-7 YEARS AGO [facility] May 25, 2016 11:53 PM QUIT [facility] May 01, 2016 11:19 AM QUIT TOBACCO USE IN PAST YEAR [facility] Mar 16, 2016 12:50 PM V1-PT DECLINES REF TO TOBACCO [facility] CESS PRGM Mar 16, 2016 12:50 PM V1-PT THINKING ABOUT QUIT [facility] TOBACCO USE Aug 12, [...] 2021 12:57 PM MRI ABDOMEN W/WO CONTRAST: LONG,MARYELLEN [place] LUCAS MEEK N [id number] -[id number] M [facility] Exm Date: DEC 13, 2021@12:57 Req Phys: ISATU TODD Loc: OP Unknown/0 12-15-2021@13:20 Img Loc: MRI IMAGING (OOS) Service: [facility] MEDICINE (Case [id number] COMPLETE) MRI ABDOMEN W/WO CONTRAST (M RI Detailed) CPT:33653 Reason for Study: further characterization of a [...] new lyphadenopathy REQUESTING MD: Isatu Todd PAGER: [phone] PHONE: [phone] Weight: 232.2 lb [105.32 kg] (12/12/2021 05:00) [...] 15, 2021 Date Verified: DEC 15, 2021 Wood Machinist Apprentice E-Sig:/ES/MARYELLEN LONG Report: MRI ABDOMEN W/WO [...] Codes: POSSIBLE MALIGNANCY Primary Interpreting Staff: MARYELLEN LONG, Staff (Wood Machinist Apprentice) / Dec 10, 2021 09:[address] ABDOMEN & PELVIS: RADIOLOGY,OUTSIDE [facility] [place] LUCAS MEEK N [id number] -1950 M [facility] Exm Date: DEC 10, 2021@09:30 Req Phys: ISATU TODD Loc: 1S MED/12-10@10:57 Img Loc: CT SCAN (OOS) Service: [facility] MEDICINE (Case [id number] COMPLETE) CT ABD & PELVIS WITHOUT CONT RAST (CT Detailed) CPT:51321 Reason for Study: 71 yo male with [...] INDEX - NO HEIGHTS FOUND Pager number: [phone] STAT orders MUST be call ed to RADIOLOGY [phone] to speak to the appropriate diet technician registered. Report Status: Verified Date Reported: DEC 10, 2021 Date Verified: DEC 10, 2021 Wood Machinist Apprentice E-Sig: Report: EXAM: CT abdomen and [...] ph nodes. READING PHYSICIAN: Ramone Munoz D.O. -[phone] 12/10/2021 10:55 EDT [email or web address] Program [phone] (For Medical Practitioner Use Only ) [address] [place] [address], [address] [place] [address] Attention Patients / Veterans: If you have ques tions or concerns about these test results, please contact your o rdering provider or primary care team. Primary Diagnostic Code: SIGNIFICANT ABNORMALIT Y, ATTN NEEDED Primary Interpreting Staff: RADIOLOGY,OUTSIDE SERVICE, Staff Physician / Dec 09, 2021 07:34 AM BASW (MODIFIED): JESSIE CHENEY [facility] LUCAS MEEK N [id number] -1950 [facility] Exm Date: DEC 09, 2021@07:34 Req Phys: ISATU TODD Loc: 1S MED/12-09@11:26 Img Loc: XRAY (OOS) Service: [facility] MEDICINE (Case [id number] COMPLETE) BASPrincess (MODIFIED) (EUNICE Doane d) CPT:54360 Contrast Media : Barium Reason for Study: dysphagia ?esophageal spasm Clinical History: Report Status: Verified Date Reported: DEC 09, 2021 Date Verified: DEC 09, 2021 Wood Machinist Apprentice E-Sig:/ES/JESSIE CHENEY Report: DELISA (MODIFIED) , 12/09/2021 [...] REQUIRED Primary Interpreting Staff: JESSIE CHENEY, RADIOLOGIST (Wood Machinist Apprentice) /TLC Dec 06, 2021 12:[address] CHEST (INCLUDES ADRENALS): JESSIE CHENEY [facility] LUCAS MEEK N [id number] -1950 M [facility] Exm Date: DEC 06, 2021@12:59 Req Phys: JELANI SÁNCHEZ Pat Loc: [facility] ED DAYS M 1RD (Req'g Loc) Img Loc: CT SCAN (OOS) Service: Unknown (Case [id number] COMPLETE) CT THORAX W/O CONT (CT Detai led) CPT:73038 Reason for Study: Opacification right chest Clinical History: No contrast allergy BUN: 13 (12/06/21 12:00) CREATI: 0.90 (12/06/21 12:00) eGFR 05/16/21 09:43 52 L Weight: 232.6 lb [105.51 kg] (12/06/2021 11:40) BODY MASS INDEX - NO HEIGHTS FOUND Pager number: [phone] STAT orders MUST be called t o RADIOLOGY [phone] to speak to the appropriate diet technician registered. Indications - Other: Opacification right chest, covid positive, lung cancer histo Report Status: Verified Date Reported: DEC 06, 2021 Date Verified: DEC 06, 2021 Wood Machinist Apprentice E-Sig:/ES/JESSIE CHENEY Report: CT THORAX W/O [...] REQUIRED Primary Interpreting Staff: JESSIE CHENEY RADIOLOGIST (Wood Machinist Apprentice) Primary Interpreting Resident: PRINCE CHAMPION, Resident /BR Dec 06, 2021 11:58 AM CHEST SINGLE VIEW: JESSIE CHENEY LUCAS MEEK Lei [id number] -1950 M [facility] Exm Date: DEC 06, 2021@11:58 Req Phys: JELANI SÁNCHEZ Pat Loc: [facility] ED DAYS M 1RD (Req'g Loc) Img Loc: XRAY (OOS) Service: Unknown (Case [id number] COMPLETE) CHEST SINGLE VIEW (RAD Detai led) CPT:26142 Proc Modifiers : PORTABLE EXAM Reason for Study: SOB, home covid test positive Clinical History: Report Status: Verified Date Reported: DEC 06, 2021 Date Verified: DEC 06, 2021 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 Apprentice E-Sig:/ES/JESSIE CHENEY Report: Exam type: Chest [...] REQUIRED Primary Interpreting Staff: JESSIE CHENEY RADIOLOGIST (Wood Machinist Apprentice) /AC Pathology Reports: +/- 30 days of [...] SURGICAL PATHOLOGY REPORT: STEFANY MILLER [facility] LOCAL TITLE: LR SURGICAL PATHOLOGY REPORT [facility] STANDARD TITLE: PATHOLOGY REPORT DATE OF NOTE: JAN 03, 2022@10:28:01 ENTRY DATE: JAN 03, 2022@10:28:01 AUTHOR: NIURKA MILLER EXP COSIGNER: URGENCY: STATUS: COMPLETED $APHDR Reporting Lab: [facility] [CLIA# [id number]] [address] [place] [address] - - - - - - [...] automatically d ocumented from SURGERY package case #[id number] Field (#32) PRINCIPAL PRE-OP DIAGNOSIS, (#.72) OTHER [...] automatically d ocumented from SURGERY package case #[id number] Field (#34) PRINCIPAL POST-OP DIAG, (#.74) OTHER [...] Label: Lucas Meek Paperwork: Lucas Meek Cassette: [id number];..;KALYANI;.;211;[id number] Specimen is labeled: ES bx Received in formalin are several pieces of pale boyd and brown tissue, 1.2 x 0.7 cm in aggregate. Submitted entirely in 1 cassette [id number];..;KALYANI;.;215;[id number] SAW 12/15/2021 Microscopic exam: *+* MODIFIED REPORT *+* (Last modified: JAN 03, 2022@09:30:20 typed by NIURKA WADDELL) DIAGNOSIS: A. 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 Kendell long. TIARA Coombs was notified on 12/21/21. Modified on 01/03/22 to include report from [facility] stating that tumor is NEGATIVE for her2/ matheus amplification. The attending pathologist who signature mansoor ears on this report has reviewed all diagnostic slides and has edited t he gross and/or microscopic portion of this report in rendering the final pathologic diagnosis. [address] [address] CPT: 17724 /emely/ NIURKA Yeung MD Signed Jan 03, 2022@10:28 Performing Laboratory: Surgical Pathology Report Performed By: [facility] [CLIA# [id number]] [address] [place] [address] $FTR - - - - - [...] - - LUCAS MEEK STANDARD FORM 515 ID:[id number] SEX:M :1950 AGE: 71 LOC: SDM END [...] Lab: [facility] [CLIA# [id number]] [address] [place] [address] - - - - - - [...] automatically d ocumented from SURGERY package case #[id number] Field (#32) PRINCIPAL PRE-OP DIAGNOSIS, (#.72) OTHER [...] automatically d ocumented from SURGERY package case #[id number] Field (#34) PRINCIPAL POST-OP DIAG, (#.74) OTHER [...] Label: Lucas Meek Paperwork: Lucas Meek Cassette: [id number];..;KALYANI;.;405;[id number] Specimen is labeled: ES bx Received in formalin are several pieces of pale boyd and brown tissue, 1.2 x 0.7 cm in aggregate. Submitted entirely in 1 cassette [id number];..;KALYANI;.;405;[id number] SAW 12/15/2021 Microscopic exam: DIAGNOSIS: A. 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 Kendell long. TIARA Coombs was notified on 12/21/21. The attending pathologist who signature mansoor ears on this report has reviewed all diagnostic slides and has edited t he gross and/or microscopic portion of this report in rendering the final pathologic diagnosis. [address] [address] CPT: 40706 /emely/ NIURKA Yeung MD Signed Dec 21, 2021@11:46 Performing Laboratory: Surgical Pathology Report Performed By: [facility] [place] [CLIA# [id number]] [address] [place] [address] $FTR - - - - - [...] - - LUCAS MEEK STANDARD FORM 515 ID:[id number] SEX:M :1950 AGE: 71 LOC: [facility] END PCP: Isatu Todd /emely/ NIURKA MILLER Staff Signed: 12/21/2021 11:46 Dec 06, 2021 03:30 PM LR MICROBIOLOGY REPORT: [facility] Reporting Lab: [facility] [CLIA# [id number]] [address] [place] [address] Accession [UID]: [id number] [[id number]] Receiv ed: Dec 06, 2021@16:14 Collection sample: BLOOD CUL T BOTTLE(NIRMAL/AERO)Collection date: Dec 06, 2021 15:30 Site/Specimen: BLOOD Provider: JELANI SÁNCHEZ Comment on specimen: LAC Test(s) ordered: BLOOD CULTURE ANAEROBI C....... completed: Dec 12, 2021 06:18 * BACTERIOLOGY FINAL REPORT => Dec 12, 2021 06:1 8 TECH CODE: [id number] Bacteriology Remark(s): NO GROWTH IN 5 DAYS =--=--=--=--=--=--=--=--=--=--=--=--=--= --=--=--=--=--=--=--=--=--=--=--=--=-- Performing Laboratory: Bacteriology Report Performed By: [facility] [CLIA# [id number]] [address] [place] [address] Dec 06, 2021 03:30 PM LR MICROBIOLOGY REPORT: [facility] Reporting Lab: [facility] [CLIA# [id number]] [address] [place] [address] Accession [UID]: [id number] [[id number]] Receiv ed: Dec 06, 2021@16:14 Collection sample: BLOOD CUL T BOTTLE(NIRMAL/AERO)Collection date: Dec 06, 2021 15:30 Site/Specimen: BLOOD Provider: JELANI SÁNCHEZ Comment on specimen: LAC Test(s) ordered: BLOOD CULTURE AEROBIC. ........ completed: Dec 12, 2021 06:17 * BACTERIOLOGY FINAL REPORT => Dec 12, 2021 06:1 7 TECH CODE: [id number] Bacteriology Remark(s): NO GROWTH IN 5 DAYS =--=--=--=--=--=--=--=--=--=--=--=--=--= --=--=--=--=--=--=--=--=--=--=--=--=-- Performing Laboratory: Bacteriology Report Performed By: [facility] [CLIA# [id number]] [address] [place] [address] Encounter Notes: All associated encounter notes This section contains the clinical notes associated to the Encounter. 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 and to call with any questions or concerns. Patient has significant loss of protective sensation and tsering uld avoid going barefoot. DM shoes were ordered end of last year but he does not wear them in today. (2)Onychomycosis: B35.1 - Tinea unguium Nails were significantly thi ckened and elongated. They weredebrided 1 through 5 bilaterally. follow up 3 monthsor sooner as needed (3)Pre-ulcerative corn or callous: L84 - Corns and callosities Preulcerativecalluswithout subdermal bleeding no jaguar on the right third hammertoe. This was thorough ly debrided with a sterile 15 blade today. Discussed the importance of off loadin g this area, daily foot check and follow-up for any acutechanges. Given more cre st toe pads and encouraged to wear at all timeswhen ambulating and avoid walking without shoes or slippers. Discussed importance of routine foot care to prevent complicatio ns such as ulcerations and loss of toe or limb. (4)Hammertoes of both feet: M20.41 - Other hammer toe(s) (acquired), right foot; M20.42 - Other hammer toe (s) (acquired), left foot Significant rigid contractures of toes (5)Hallux nam itus: Laterality: left Qualified Code(s): M20.5X2 - Ot her deformities of toe(s) (acquired), left foot M20.5X9 - Other deformities of toe(s) (acquired) , unspecified foot Left great toe (6)Impaired gait and mobility: R26.89 - Other abnormalities of gait and mobilit y Ambulates with a walker today Patient Details Height 5 ft 11 in 01/02/22 Weight 236 lb 9.6 oz 01/02/22 Body Mass Index (BMI) 33.0 01/02/22 Document sent to [facility] to be scanned. To reese iew this document in its entirety open the CPR[employer] tools menu and then open the image disp lay viewer. /emely/ SILVANA VÁZQUEZ Leave Coordinator Signed: 01/03/2022 10:58
--- OUTSIDE RECORDS SUMMARY | 2022-01-19 09:27 | XMS_ITS | Encounter Summary ---
:1950 Author Organization Department [facility] Address [address] [place] [id number] Support Name Relationship Address Phone YUSRA MEEK Unavailable [address] [place] [facility] [place] [address] YUSRA MEKE Unavailable [address] [place] [facility] [place] [place] [address] CLAY MOSLEY Unavailable Unavailable SJ SANTACRUZ Unavailable [...] MEDICARE MEDICARE PART Jun 18, PART A [id number] KALYANI PATIENT (WNR) (M) A 2016 13A 1 UGLAS MEDICARE MEDICARE PART Jun 18, PART B [id number] MEEK DO PATIENT (WNR) (M) B 2017 13A 1 UGLAS MEDICARE MEDICARE PART Jun 18, PART B [id number] KALYANIDO PATIENT (WNR) (M) B 2017 VH81 2 UGLAS MEDICARE MEDICARE PART Jun 18, PART A [id number] KALYANIDO PATIENT (WNR) (M) A 2017 VH81 2 LAS UNITED MEDICARE MCR(W Jun 18 [id number] Luz MEEK PATIENT HEALTHCARE ADVANTAGE NR) 2021 37 0 [facility] (WNR) Selected Encounter This section includes the information on record at DC for the Encounter. Date/Time Encounter Type Encounter Reason Provider Source Description Jan 03, 2022 10:28 Outpatient EVENT (HISTORICAL) NIURKA MILLER AM Encounter [...] - [place] [facility] Feb 21, 2022 10:00 AM AM[place]UL[place] - [place] [facility] Mar 21, 2022 10:30 AM AMBULATORY [...] The data comes from all DC treatment [facility]. Test Date/Time Test Type [...] [place] OUTPATIENT Cons [facility] Council Member's Choice Jan 15, 2022 10:08 PM Consult Order [facility] CARE-PALLIATIVE CARE Cons Council Member's Choice Lab Results: +/- 30 days of the encounter This section includes the Chemistry and Hematology Lab Results on record with DC for the patient. Radiology Reports and Pathology [...] [facility] Comment: Tests performed on [employer] (405) SN:[id number] Ordering Provid er: ISATU TODD Report Released Date/Time: Dec 11, 2021 07:42 AM Reporting Lab: [facility] [facility] [address] [facility] [address] Performing Lab: [facility] [address] [facility] [address] UREA NITROGEN 9 7-25 SODIUM 137 135-145 POTASSIUM 3.8 3.5-5.0 CHLORIDE 105 100-110 CARBON DIOXIDE 26 20-30 ANION GAP 6 4-16 GLUCOSE 102 H 65-100 CREATININE 0.64 0.5-1.5 CALCIUM 8.1 L 8.5-10.5 eGFR(CKD-EPI 2020) >90.0 >60 Dec 15, 2021 06:[address] [facility] CBC PROFILE Sp ecimen Type: BLOOD No comment enter ed. Ordering Provid er: ISATU TODD Report Released Date/Time: Dec 10, 2021 07:22 AM Reporting Lab: [facility] [address] [facility] [address] Performing Lab: [facility] [address] [facility] [address] WBC 5.7 4.5-11.0 RBC 4.22 L 4.23-5.66 [...] 0.00 0-0 Dec 14, 2021 [facility] CYTOGENETIC Specimen Type: ESOPHAGUS 02:59 PM [facility] FISH([facility]) Comment: ~For T est: CYTOGENETIC FISH([facility] [place]) ~FISH HER 2 NUE, FFPE See full report in [employer] Image display viewer/tab#LAB-Reference Ordering Provid er: NIURKA MILLER Report Released Date/Time: Dec 21, 2021 12:11 PM Reporting [facility]: [facility] [address] [facility] [address] Performing Lab: [facility] CYTOGENETIC FISH([facility] [place]) comment Dec 14, 2021 [facility] P4 GLU,BUN,CREAT,LYTES,CA Speci men Type: PLASMA 06:27 AM [facility] Comment: Tests performed on [employer] (405) SN:[id number] Ordering Provid er: ISATU TODD Report Released Date/Time: Dec 11, 2021 07:42 AM Reporting Lab: [facility] [address] [facility] [address] Performing Lab: [facility] [address] [facility] [address] UREA NITROGEN 10 7-25 SODIUM 137 135-145 [...] MEDICAL CENTER [address] [facility] [address] Performing Lab: [facility] [address] [facility] WBC 6.0 4.5-11.0 RBC 4.29 4.23-5.66 HGB [...] 0.00 0-0 Dec 13, 2021 06:34 AM [facility] CBC PROFILE Sp ecimen Type: BLOOD No comment enter ed. Ordering Provid er: ISATU TODD Report Released Date/Time: Dec 10, 2021 07:22 AM Reporting Lab: [facility] [address] [facility] [address] Performing Lab: [facility] [address] [facility] [address] WBC 5.6 4.5-11.0 RBC 4.28 4.23-5.66 HGB [...] Dec 13, [address] [facility] P4 GLU,BUN,CREAT,LYTES,CA Speci men Type: PLASMA 06:34 AM [facility] Comment: Tests performed on [employer] (405) SN:[id number] Ordering Provid er: ISATU TODD Report Released Date/Time: Dec 11, 2021 07:42 AM Reporting Lab: [facility] [address] [facility] [address] Performing Lab: [facility] [address] [facility] [address] UREA NITROGEN 12 7-25 SODIUM 136 135-145 POTASSIUM 3.9 3.5-5.0 CHLORIDE 105 100-110 CARBON DIOXIDE 24 20-30 ANION GAP 7 4-16 GLUCOSE 102 H 65-100 CREATININE 0.66 0.5-1.5 CALCIUM 8.3 L 8.5-10.5 eGFR(CKD-EPI 2020) >90.0 >60 Dec 12, [address] [facility] P4 GLU,BUN,CREAT,LYTES,CA Speci men Type: PLASMA 06:21 AM [facility] Comment: Tests performed on [employer] (405) SN:[id number] Ordering Provid er: ISATU TODD Report Released Date/Time: Dec 11, 2021 07:42 AM Reporting Lab: [facility] [address] [facility] [address] Performing Lab: [facility] [address] [facility] [address] UREA NITROGEN 11 7-25 SODIUM 139 135-145 [...] Reporting Lab: [facility] [address] [facility] [address] Performing Lab: [facility] [address] [facility] [address] WBC 5.5 4.5-11.0 RBC 4.37 4.23-5.66 HGB [...] 0.00 0-0 Dec 12, 2021 06:[address] [facility] MAGNESIUM Sp ecimen Type: PLASMA Comment: Testin g Performed on [employer] (405) SN:[id number] Ordering Provid er: ALLEN JUNCTIONISATU Yao Report Released Date/Time: Dec 12, 2021 08:24 AM Reporting Lab: [facility] [address] [facility] [address] Performing Lab: [facility] [address] [facility] [address] MAGNESIUM 1.8 1.6-2.6 Dec 12, 2021 06:00 AM [place] [facility] PHOSPHORUS Sp ecimen Type: PLASMA Comment: Testin g Performed on [employer] (405) SN:[id number] Ordering Provid er: [facility] Yao Report Released Date/Time: Dec 12, 2021 08:24 AM Reporting Lab: [facility] [address] [facility] [address] Performing Lab: [facility] [address] [facility] [address] PHOSPHORUS 3.1 2.5-5.0 Dec 11, 2021 06:[address] [facility] ELECTROLYTES Sp ecimen Type: PLASMA Comment: Tests performed on [employer] (405) SN:[id number] Ordering Provid er: TODDISATU Yao Report Released Date/Time: Dec 10, 2021 07:22 AM Reporting Lab: [facility] [address] [facility] [address] Performing Lab: [facility] [address] [facility] [address] SODIUM 137 135-145 POTASSIUM 4.3 3.5-5.0 CHLORIDE 108 100-110 CARBON DIOXIDE 20 20-30 ANION GAP 9 4-16 Dec 11, 2021 06:15 AM [facility] CBC PROFILE Sp ecimen Type: BLOOD Comment: Result s checked Ordering Provid er: TODDISATU Yao Report Released Date/Time: Dec 10, 2021 07:22 AM Reporting Lab: [facility] [address] [facility] [address] Performing Lab: [facility] [address] [facility] WBC 5.8 4.5-11.0 RBC 4.37 4.23-5.66 [...] 11, 2021 06:[address] [facility] PHOSPHORUS Sp ecimen Type: PLASMA Comment: Tests performed on [employer] (405) SN:[id number] Results checked Ordering Provid er: ISATU TODD Report Released Date/Time: Dec 11, 2021 07:44 AM Reporting Lab: [facility] [address] [facility] Performing Lab: [facility] [address] [facility] PHOSPHORUS 3.0 2.5-5.0 Dec 10, 2021 08:[address] [facility] MAGNESIUM Sp ecimen Type: PLASMA Comment: [place] [id number] on Dec 10, 2021@08:31 Tests performed on [employer] (405) SN:[id number] Ordering Provid er: ISATU TODD Report Released Date/Time: Dec 10, 2021 07:22 AM Reporting Lab: [place] [facility] [address] [place] [place] [address] Performing Lab: [place] [facility] [address] [facility] [address] MAGNESIUM 1.7 1.6-2.6 Dec 10, 2021 08:05 AM [place] UREA NITROGEN Specimen Type: PLASMA [facility] Comment: [place] [id number] on Dec 10, 2021@08:31 Tests performed on [employer] (405) SN:[id number] Ordering Provid er: ISATU TODD Report Released Date/Time: Dec 10, 2021 07:22 AM Reporting Lab: [place] [facility] [address] [facility] [address] Performing Lab: [place] [facility] [address] [facility] [address] UREA NITROGEN 8 7-25 Dec 10, 2021 08:05 AM [place] [facility] PHOSPHORUS Sp ecimen Type: PLASMA Comment: [place] [id number] on Dec 10, 2021@08:31 Tests performed on [email or web address] (405) SN:[id number] Ordering Provid er: ISATU TODD Report Released Date/Time: Dec 10, 2021 07:22 AM Reporting Lab: [place] [facility] [address] [facility] [address] Performing Lab: [place] [facility] [address] [place] [place] [address] PHOSPHORUS 1.8 L 2.5-5.0 Dec 10, 2021 08:05 AM [place] [facility] CALCIUM Sp ecimen Type: PLASMA Comment: [place] [id number] on Dec 10, 2021@08:31 Tests performed on [email or web address] (405) SN:[id number] Ordering Provid er: ISATU TODD Report Released Date/Time: Dec 10, 2021 07:22 AM Reporting Lab: [place] [facility] [address] [place] [facility] [place] [address] Performing Lab: [place] [facility] [address] [facility] [address] CALCIUM 8.3 L 8.5-10.5 Dec 10, 2021 08:05 AM [place] [facility] ELECTROLYTES Sp ecimen Type: PLASMA Comment: [place] [id number] on Dec 10, 2021@08:31 Tests performed on [employer] (405) SN:[id number] Ordering Provid er: ISATU TODD Report Released Date/Time: Dec 10, 2021 07:22 AM Reporting Lab: [place] [facility] [address] [facility] [address] Performing Lab: [place] [facility] [address] [facility] [address] SODIUM 139 135-145 POTASSIUM 3.7 3.5-5.0 CHLORIDE 107 100-110 CARBON DIOXIDE 24 20-30 ANION GAP 8 4-16 Dec 10, 2021 08:05 [place] CREATININE WITH eGFR Specime n Type: PLASMA AM [facility] PANEL Comment: [place] [id number] on Dec 10, 2021@08:31 Tests performed on [email or web address] (405) SN:[id number] Ordering Provid er: ISATU TODD Report Released Date/Time: Dec 10, 2021 07:22 AM Reporting Lab: [place] [facility] [address] [facility] [address] Performing Lab: [place] [facility] [address] [facility] [address] CREATININE 0.78 0.5-1.5 eGFR(CKD-EPI 2020) >90.0 >60 Dec 10, 2021 08:05 AM [place] [facility] CBC PROFILE Sp ecimen Type: BLOOD No comment enter ed. Ordering Provid er: ISATU TODD Report Released Date/Time: Dec 10, 2021 07:22 AM Reporting Lab: [place] [facility] [address] [facility] [address] Performing Lab: [place] [facility] [address] [facility] [address] WBC 7.0 4.5-11.0 RBC 4.54 4.23-5.66 HGB [...] 0-0 Dec 10, 2021 08:05 AM [place] [facility] GLUCOSE Sp ecimen Type: PLASMA Comment: [place] [id number] on Dec 10, 2021@08:31 Tests performed on [employer] (405) SN:[id number] Ordering Provid er: ISATU TODD Report Released Date/Time: Dec 10, 2021 07:22 AM Reporting Lab: [employer] [place] [facility] [address] [facility] [address] Performing Lab: [employer] [place] [facility] [address] [facility] [address] GLUCOSE 144 H 65-100 Dec 09, 2021 06:46 AM [employer] [facility] MAGNESIUM Sp ecimen Type: PLASMA Comment: Tests performed on [employer] (405) SN:[id number] Ordering Provid er: ISATU TODD Report Released Date/Time: Dec 08, 2021 10:23 AM Reporting Lab: [place] [facility] [address] [facility] [address] Performing Lab: [place] [facility] [address] [facility] [address] MAGNESIUM 1.6 1.6-2.6 Dec 09, 2021 [place] P4 GLU,BUN,CREAT,LYTES,CA Speci men Type: PLASMA 06:46 AM [facility] Comment: Tests performed on [employer] (405) SN:[id number] Ordering Provid er: ISATU TODD Report Released Date/Time: Dec 08, 2021 05:00 PM Reporting Lab: [facility] [address] [facility] [address] Performing Lab: [facility] [address] [facility] [address] UREA NITROGEN 6 L 7-25 SODIUM 134 [...] MEDICAL CENTER [address] [facility] [address] Performing Lab: [facility] [address] [facility] [address] WBC 7.1 4.5-11.0 RBC 4.40 4.23-5.66 HGB [...] Type: PLASMA Comment: Testin g Performed on [employer] (405) SN:[id number] Ordering Provid er: ISATU TODD Report Released Date/Time: Dec 07, 2021 10:32 AM Reporting Lab: [place] [facility] [address] [facility] [address] Performing Lab: [place] [facility] [address] [facility] [address] MAGNESIUM 1.5 L 1.6-2.6 Dec 08, 2021 [place] P4 GLU,BUN,CREAT,LYTES,CA Speci men Type: PLASMA 06:39 AM [facility] Comment: Testin g Performed on [employer] (405) SN:[id number] Ordering Provid er: ISATU TODD Report Released Date/Time: Dec 07, 2021 10:32 AM Reporting Lab: [place] [facility] [address] [facility] [address] Performing Lab: [facility] [address] [facility] [address] UREA NITROGEN 6 L 7-25 SODIUM 136 135-145 POTASSIUM 3.3 L 3.5-5.0 CHLORIDE 104 100-110 CARBON DIOXIDE 22 20-30 ANION GAP 10 4-16 GLUCOSE 133 H 65-100 CREATININE 0.76 0.5-1.5 CALCIUM 8.4 L 8.5-10.5 eGFR(CKD-EPI 2020) >90.0 >60 Dec 08, 2021 06:39 AM [place] [facility] CBC PROFILE Sp ecimen Type: BLOOD No comment enter ed. Ordering Provid er: ISATU TODD Report Released Date/Time: Dec 07, 2021 10:32 AM Reporting Lab: [place] [facility] [address] [facility] [address] Performing Lab: [place] [facility] [address] [facility] [address] WBC 8.4 4.5-11.0 RBC 4.75 4.23-5.66 HGB [...] 0.00 0-0 Dec 07, 2021 [facility] P4 GLU,BUN,CREAT,LYTES,CA Speci men Type: PLASMA 06:42 AM [facility] Comment: Tests performed on [employer] (405) SN:[id number] Ordering Provid er: PORFIRIO WALTERS Report Released Date/Time: Dec 06, 2021 06:57 PM Reporting Lab: [facility] [address] [facility] [address] Performing Lab: [facility] [address] [facility] [address] UREA NITROGEN 9 7-25 SODIUM 135 135-145 POTASSIUM 3.5 3.5-5.0 CHLORIDE 103 100-110 CARBON DIOXIDE 22 20-30 ANION GAP 10 4-16 GLUCOSE 92 65-100 CREATININE 0.73 0.5-1.5 CALCIUM 8.0 L 8.5-10.5 eGFR(CKD-EPI 2020) >90.0 >60 Dec 07, 2021 06:42 [facility] LIVER PROFILE Specimen Typ e: PLASMA AM [facility] Comment: Tests performed on [employer] (405) SN:[id number] Ordering Provid er: PORFIRIO WALTERS Report Released Date/Time: Dec 06, 2021 06:57 PM Reporting Lab: [facility] [address] [facility] [address] Performing Lab: [facility] [address] [facility] [address] PROTEIN, TOTAL 5.7 L 6.0-8.5 ALBUMIN 2.4 L 3.2-5.0 BILIRUBIN, TOTAL 0.4 0.2-1.2 ALKALINE PHOSPHATASE 109 40-150 ALT(SGPT) 10 7-52 AST(SGOT) 15 5-34 FIB-4 SCORE 1.92 <2.67 Dec 07, 2021 06:42 AM [facility] [facility] CBC PROFILE Specimen Type: BLOOD [facility] No comment enter ed. Ordering Provid er: PORFIRIO WALTERS Report Released Date/Time: Dec 06, 2021 06:57 PM Reporting Lab: [facility] [address] [facility] [address] Performing Lab: [facility] [address] [facility] [address] WBC 5.7 4.5-11.0 RBC 4.15 L 4.23-5.66 [...] [facility] %) AUTOMATED Comment: Tests performed on [employer] (405) SN:[id number] Ordering Provid er: ISATU TODD Report Released Date/Time: Dec 07, 2021 10:28 AM Reporting Lab: [place] [facility] [address] [facility] [address] Performing Lab: [place] [facility] [address] [facility] [address] RETICULOCYTES (%) AUTOMATED 1.23 0. 6-2.0 RETICULOCYTES (ABS) AUTOMATED 0.052 0.030-0.090 Dec 06, 2021 09:45 [place] MRSA SURVL NARES Specimen Ty pe: NARES PM [facility] DNA No comment enter ed. Ordering Provid er: ALVARO VARGHESE Report Released Date/Time: Dec 07, 2021 02:20 AM Reporting Lab: [place] [facility] [address] [facility] [address] Performing Lab: [place] [facility] [address] [facility] [address] MRSA SURVL NARES DNA NEGATIVE NEGATIVE Dec 06, 2021 06:00 [place] URINALYSIS W/REFLEX TO Speci men Type: URINE PM [facility] CULTURE No comment enter ed. Ordering Provid er: JELANI SÁNCHEZ Report Released Date/Time: Dec 06, 2021 11:57 AM Reporting Lab: [place] [facility] [address] [facility] [address] Performing Lab: [place] [facility] [address] [facility] [address] URINE COLOR Arlin YELLOW SPECIFIC GRAVITY 1.029 [...] 21, [place]IANT Comment: https://www.cdc.gov/coronavirus/2019-ncov/cases-updates/variant- surveillance/variant-info.html The [employer] AmpliSeq SARS CoV 2 Insight Research Assay-GX is a next-generation sequencing (NGS) assa 2021 [facility] SEQUENCING y that determine s the complete genome sequence of the SARS-CoV-2 virus. The assay contains variant-tolerant primers to broaden and improve the coverage for variant detection and increase the sensitivity 12:00 [facility] PNL(WH) of the panel to enable detection from lower viral titer samples. The assay is run on the [employer] Sequencer, which performs automated library preparation, sequencing, analysis, and reporting. PM The sequence an alysis includes determination of viral phylogenetic lineage by comparison to the reference strain Wuhan-Hu-1, GenBank: [id number]. Sequence determination may not be possible owing [...] 01:13 PM Reporting Lab: [facility] [address] [facility] [address] [facility] [address] Performing Lab: [facility] [address] [facility] [address] SARS-CoV-2 CLADE(wh) 22C (OMICRON) SARS-CoV-2 LINEAGE() BA.2.12.1 Dec 06, 2021 12:00 [facility] COVID-19 AG SCREEN Specimen Type: NASAL CAVITY PM [facility] PANEL BINAX(405) Comment: Testi ng Performed By: Mike Briscoe Ordering Provid er: JELANI SÁNCHEZ Report Released Date/Time: Dec 08, 2021 08:23 AM Reporting Lab: [facility] [address] [facility] [address] Performing Lab: [facility] [address] [facility] [address] COVID-19 AG SCRN(wrj BINAX) POSITIVE HH NE G Dec 06, 2021 12:[address] [facility] LIVER PROFILE Sp ecimen Type: PLASMA Comment: Testin g Performed on [employer] (405) SN:[id number] Ordering Provid er: JELANI SÁNCHEZ Report Released Date/Time: Dec 06, 2021 11:57 AM Reporting Lab: [facility] [address] [facility] [address] Performing Lab: [facility] [address] [facility] [address] PROTEIN, TOTAL 6.6 6.0-8.5 ALBUMIN 2.8 L 3.2-5.0 BILIRUBIN, TOTAL 0.6 0.2-1.2 ALKALINE PHOSPHATASE 134 40-150 ALT(SGPT) 13 7-52 AST(SGOT) 18 5-34 FIB-4 SCORE 1.94 <2.67 Dec 06, [address] [facility] P4 GLU,BUN,CREAT,LYTES,CA Speci men Type: PLASMA 12:00 PM [facility] Comment: Testin g Performed on [employer] (405) SN:[id number] Ordering Provid er: JELANI SÁNCHEZ Report Released Date/Time: Dec 06, 2021 11:57 AM Reporting Lab: [facility] [address] [facility] [address] Performing Lab: [facility] [address] [facility] [address] UREA NITROGEN 13 7-25 SODIUM 138 135-145 POTASSIUM 3.8 3.5-5.0 CHLORIDE 103 100-110 CARBON DIOXIDE 23 20-30 ANION GAP 12 4-16 GLUCOSE 105 H 65-100 CREATININE 0.90 0.5-1.5 CALCIUM 8.7 8.5-10.5 eGFR(CKD-EPI 2020) >90.0 >60 Dec 06, 2021 12:00 PM [place] [facility] TROPONIN II Sp ecimen Type: PLASMA Comment: Tests performed on [employer] (405) SN:[id number] Ordering Provid er: JELANI SÁNCHEZ Report Released Date/Time: Dec 06, 2021 11:57 AM Reporting Lab: [place] [facility] [address] [place] [place] [address] Performing Lab: [facility] [address] [place] [place] [address] TROPONIN II 0.03 0.00-0.29 Dec 06, 2021 [facility]U/RSV DIAGNOSTIC Spe cimen Type: NASOPHARYNX 12:00 PM [facility] PANEL(405) Comment: Tests performed on [employer] (405) Critical results called to and read back by: ALESHIA WILKINSON RN 12/06/21 @ 1312 Ordering Provid er: JELANI SÁNCHEZ Report Released Date/Time: Dec 06, 2021 11:57 AM Reporting Lab: [facility] [address] [place] [place] [address] Performing Lab: [facility] [address] [place] [facility] [place] [address] FLU A(PCR) NEGATIVE NEGATIVE FLU B(PCR) NEGATIVE NEGATIVE RSV(PCR) NEGATIVE NEGATIVE COVID-19([id number]) DETECTED HH NO T DETECTED Dec 06, 2021 12:00 PM [facility] BNP(P[facility] Sp ecimen Type: PLASMA Comment: Tests performed on [employer] Underwriter ([id number]) [id number] Ordering Provid er: JELANI SÁNCHEZ Report Released Date/Time: Dec 06, 2021 11:57 AM Reporting Lab: [facility] [address] [place] [facility] [place] [address] Performing Lab: [facility] [address] [place] [facility] [place] [address] BNP(P) 224.8 H 10-100 Dec 06, 2021 12:00 PM [facility] CBC PROFILE Sp ecimen Type: BLOOD No comment enter ed. Ordering Provid er: JELANI SÁNCHEZ Report Released Date/Time: Dec 06, 2021 11:57 AM Reporting Lab: [facility] [address] [facility] [address] Performing Lab: [facility] [address] [facility] [address] WBC 7.2 4.5-11.0 RBC 4.86 4.23-5.66 HGB [...] 1-7 YEARS AGO [facility] Mar 24, 2020 03:00 PM QUIT TOBACCO USE 1-7 YEARS AGO [facility] Feb 21, 2019 04:11 PM QUIT TOBACCO USE 1-7 YEARS AGO [facility] Feb 20, 2019 03:38 PM QUIT TOBACCO USE 1-7 YEARS AGO [facility] Feb 03, 2019 09:50 AM QUIT TOBACCO USE 1-7 YEARS AGO [facility] May 25, 2016 11:53 PM QUIT TOBACCO USE IN PAST YEAR [facility] May 23, 2016 06:57 PM QUIT TOBACCO USE > 7 YEARS AGO [facility] May 19, 2016 03:55 PM QUIT TOBACCO USE IN PAST YEAR [facility] May 19, 2016 10:29 AM QUIT TOBACCO USE 1-7 YEARS AGO [facility] May 01, 2016 07:26 PM QUIT TOBACCO USE IN PAST YEAR [facility] May 01, 2016 03:11 PM QUIT TOBACCO USE IN PAST YEAR [facility] May 01, 2016 11:19 AM QUIT TOBACCO USE IN PAST YEAR [facility] Mar 16, 2016 12:50 PM V1-PT DECLINES REF TO TOBACCO [facility] CESS PRGM Mar 16, 2016 12:50 PM V1-PT THINKING ABOUT QUIT [place] [facility] TOBACCO USE Aug 12, [...] ETHAN,MARYELLEN [place] LUCAS MEEK N [id number] -[id number] [facility] Exm Date: DEC 13, 2021@12:57 Req Phys: ISATU TODD Loc: OP Unknown/0 12-15-2021@13:20 Img Loc: MRI IMAGING (OOS) Service: [facility] MEDICINE (Case [id number] COMPLETE) MRI ABDOMEN W/WO CONTRAST (M RI Detailed) CPT:99191 Reason for Study: further characterization of a [...] new lyphadenopathy REQUESTING MD: Isatu Todd PAGER: [phone] PHONE: [phone] Weight: 232.2 lb [105.32 kg] (12/12/2021 05:00) [...] patient will need to arrange for a clark driver to take him/her home after the [...] 15, 2021 Date Verified: DEC 15, 2021 Transfer Operator E-Sig:/ES/MARYELLEN LONG Report: MRI ABDOMEN W/WO [...] MALIGNANCY Primary Interpreting Staff: Staff AMELIA THOMAS (Transfer Operator) / Dec 10, 2021 09:[address] ABDOMEN & PELVIS: RADIOLOGY,OUTSIDE [facility] LUCAS MEEK N [id number] -1950 M [facility] Exm Date: DEC 10, 2021@09:30 Req Phys: ISATU TODD Loc: 1S MED/12-10@10:57 Img Loc: CT SCAN (OOS) Service: [facility] MEDICINE (Case [id number] COMPLETE) CT ABD & PELVIS WITHOUT CONT RAST (CT Detailed) CPT:41082 Reason for Study: 71 yo male with [...] INDEX - NO HEIGHTS FOUND Pager number: [phone] STAT orders MUST be call ed to RADIOLOGY [phone] to speak to the appropriate radiocommunications technician. Report Status: Verified Date Reported: DEC 10, 2021 Date Verified: DEC 10, 2021 Transfer Operator E-Sig: Report: EXAM: CT abdomen and [...] ph nodes. READING PHYSICIAN: Ramone Munoz D.O. [phone] 12/10/2021 10:55 EDT [facility] [employer] [phone] (For Medical Practitioner Use Only ) [address] [place] [address], [place] [address], [address] [place] [address] Attention Patients / Veterans: If you have ques tions or concerns about these test results, please contact your o rdering provider or primary care team. Primary Diagnostic Code: SIGNIFICANT ABNORMALIT Y, ATTN NEEDED Primary Interpreting Staff: RADIOLOGY,OUTSIDE SERVICE, Staff Physician / Dec 09, 2021 07:34 AM BASW (MODIFIED): [facility] LUCAS MEEK N [id number] -1950 [facility] Exm Date: DEC 09, 2021@07:34 Req Phys: ISATU TODD Loc: 1S MED/12-09@11:26 Img Loc: XRAY (OOS) Service: [facility] MEDICINE (Case [id number] COMPLETE) BASPrincess (MODIFIED) (RAD Detaile d) CPT:34829 Contrast Media : Barium Reason for Study: dysphagia ?esophageal spasm Clinical History: Report Status: Verified Date Reported: DEC 09, 2021 Date Verified: DEC 09, 2021 Transfer Operator E-Sig:/ES/JESSIE CHENEY Report: DELISA (MODIFIED) , [...] REQUIRED Primary Interpreting Staff: JESSIE CHENEY, RADIOLOGIST (Transfer Operator) /TLC Dec 06, 2021 12:[address] CHEST (INCLUDES ADRENALS): [facility] N [id number] -1950 M [facility] Exm Date: DEC 06, 2021@12:59 Req Phys: JELANI SÁNCHEZ Loc: [facility] ED DAYS M 1RD (Req'g Loc) Img Loc: CT SCAN (OOS) Service: Unknown (Case [id number] COMPLETE) CT THORAX W/O CONT (CT Detai led) CPT:94497 Reason for Study: Opacification right chest Clinical History: No contrast allergy BUN: 13 (12/06/21 12:00) CREATI: 0.90 (12/06/21 12:00) eGFR 05/16/21 09:43 52 L Weight: 232.6 lb [105.51 kg] (12/06/2021 11:40) BODY MASS INDEX - NO HEIGHTS FOUND Pager number: [phone] STAT orders MUST be called t o RADIOLOGY [phone] to speak to the appropriate radiocommunications technician. Indications - Other: Opacification right chest, covid positive, lung cancer histo Report Status: Verified Date Reported: DEC 06, 2021 Date Verified: DEC 06, 2021 Transfer Operator E-Sig:/ES/JESSIE CHENEY Report: CT THORAX W/O [...] REQUIRED Primary Interpreting Staff: JESSIE CHENEY, RADIOLOGIST (Transfer Operator) Primary Interpreting Resident: PRINCE CHAMPION, Resident /BR Dec 06, 2021 11:58 AM CHEST SINGLE VIEW: JESSIE CHENEY LUCAS MEEK Lei [id number] -1950 [facility] Exm Date: DEC 06, 2021@11:58 Req Phys: JELANI SÁNCHEZ Pat Loc: [facility] ED DAYS M 1RD (Req'g Loc) Img Loc: XRAY (OOS) Service: Unknown (Case [id number] COMPLETE) CHEST SINGLE VIEW (RAD Detai led) CPT:78192 Proc Modifiers : PORTABLE EXAM Reason for Study: SOB, home covid test positive Clinical History: Report Status: Verified Date Reported: DEC 06, 2021 Date Verified: DEC 06, 2021 Transfer Operator E-Sig:/ES/JESSIE CHENEY Report: Exam type: Chest [...] REQUIRED Primary Interpreting Staff: JESSIE CHENEY, RADIOLOGIST (Transfer Operator) /AC Pathology Reports: +/- 30 days of [...] SURGICAL PATHOLOGY REPORT: STEFANY MILLER [facility] LOCAL TITLE: LR SURGICAL PATHOLOGY REPORT [facility] STANDARD TITLE: PATHOLOGY REPORT DATE OF NOTE: JAN 03, 2022@10:28:01 ENTRY DATE: JAN 03, 2022@10:28:01 AUTHOR: NIURKA MILLER EXP COSIGNER: URGENCY: STATUS: COMPLETED $APHDR Reporting Lab: [facility] [CLIA# [id number]] [address] [place] [address] - - - - - - [...] automatically d ocumented from SURGERY package case #[id number] Field (#32) PRINCIPAL PRE-OP DIAGNOSIS, (#.72) OTHER [...] automatically d ocumented from SURGERY package case #[id number] Field (#34) PRINCIPAL POST-OP DIAG, (#.74) OTHER [...] Label: Lucas Meek Paperwork: Lucas Meek Cassette: [id number];..;KALYANI;.;405;[phone] Specimen is labeled: ES bx Received in formalin are several pieces of pale boyd and brown tissue, 1.2 x 0.7 cm in aggregate. Submitted entirely in 1 cassette [id number];..;KALYANI;.;309;[id number] SAW 12/15/2021 Microscopic exam: *+* MODIFIED REPORT *+* (Last modified: JAN 03, 2022@09:30:20 typed by NIURKA WADDELL) DIAGNOSIS: A. 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 Kendell long. TIARA Coombs was notified on 12/21/21. Modified on 01/03/22 to include report from [facility] stating that tumor is NEGATIVE for her2/ matheus amplification. The attending pathologist who signature mansoor ears on this report has reviewed all diagnostic slides and has edited t he gross and/or microscopic portion of this report in rendering the final pathologic diagnosis. [address] [address] CPT: 68212 /emely/ NIURKA Yeung MD Signed Jan 03, 2022@10:28 Performing Laboratory: Surgical Pathology Report Performed By: CAREY MONTOYA [facility] [CLIA# [id number]] [address] [place] [address] $FTR - - - - - [...] - - LUCAS MEEK STANDARD FORM 515 ID:[id number] SEX:M :1950 AGE: 71 LOC: SDM END [...] CAREY MONTOYA [facility] [CLIA# [id number]] [address] [place] [address] - - - - - - [...] automatically d ocumented from SURGERY package case #[id number] Field (#32) PRINCIPAL PRE-OP DIAGNOSIS, (#.72) OTHER [...] automatically d ocumented from SURGERY package case #[id number] Field (#34) PRINCIPAL POST-OP DIAG, (#.74) OTHER [...] Label: Lucas Meek Paperwork: Lucas Meek Cassette: [id number];..;KALYANI;.;441;[phone] Specimen is labeled: ES bx Received in formalin are several pieces of pale boyd and brown tissue, 1.2 x 0.7 cm in aggregate. Submitted entirely in 1 cassette [id number];..;KALYANI;.;405;[id number] SAW 12/15/2021 Microscopic exam: DIAGNOSIS: A. 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 Kendell long. TIARA Coombs was notified on 12/21/21. The attending pathologist who signature mansoor ears on this report has reviewed all diagnostic slides and has edited t he gross and/or microscopic portion of this report in rendering the final pathologic diagnosis. [address] [address] CPT: 11895 /emely/ NIURKA Yeung MD Signed Dec 21, 2021@11:46 Performing Laboratory: Surgical Pathology Report Performed By: CAREY DOYLE Gorge [facility] [CLIA# [id number]] [address] [place] [address] $FTR - - - - - [...] - - LUCAS MEEK STANDARD FORM 515 ID:[id number] SEX:M :1950 AGE: 71 LOC: [facility] END PCP: Isatu Todd /emely/ NIURKA MILLER Staff Signed: 12/21/2021 11:46 Dec 06, 2021 03:30 PM LR MICROBIOLOGY REPORT: [facility] Reporting Lab: [facility] [CLIA# [id number]] [address] [place] [address] Accession [UID]: [id number] [[id number]] Receiv ed: Dec 06, 2021@16:14 Collection sample: BLOOD CUL T BOTTLE(NIRMAL/AERO)Collection date: Dec 06, 2021 15:30 Site/Specimen: BLOOD Provider: JELANI SÁNCHEZ Comment on specimen: LAC Test(s) ordered: BLOOD CULTURE ANAEROBI C....... completed: Dec 12, 2021 06:18 * BACTERIOLOGY FINAL REPORT => Dec 12, 2021 06:1 8 TECH CODE: 65995 Bacteriology Remark(s): NO GROWTH IN 5 DAYS =--=--=--=--=--=--=--=--=--=--=--=--=--= --=--=--=--=--=--=--=--=--=--=--=--=-- Performing Laboratory: Bacteriology Report Performed By: [facility] [CLIA# [id number]] [address] [place] [address] Dec 06, 2021 03:30 PM LR MICROBIOLOGY REPORT: [facility] Reporting Lab: [facility] [CLIA# [id number]] [address] [place] [address] Accession [UID]: [id number] [[id number]] Receiv ed: Dec 06, 2021@16:14 Collection sample: BLOOD CUL T BOTTLE(NIRMAL/AERO)Collection date: Dec 06, 2021 15:30 Site/Specimen: BLOOD Provider: JELANI SÁNCHEZ Comment on specimen: LAC Test(s) ordered: BLOOD CULTURE AEROBIC. ........ completed: Dec 12, 2021 06:17 * BACTERIOLOGY FINAL REPORT => Dec 12, 2021 06:1 7 TECH CODE: [id number] Bacteriology Remark(s): NO GROWTH IN 5 DAYS =--=--=--=--=--=--=--=--=--=--=--=--=--= --=--=--=--=--=--=--=--=--=--=--=--=-- Performing Laboratory: Bacteriology Report Performed By: CAREY MONTOYA [facility] [CLIA# [id number]] [address] [place] [address] Encounter Notes: All associated encounter notes This section contains the clinical notes associated to the Encounter. Date/Time Encounter Note(s) Provider Source Jan 03, 2022 10:28 AM PATHOLOGY REPORT: NIURKA MILLER [facility] LOCAL TITLE: SURGICAL PATHOLOGY REPORT [facility] STANDARD TITLE: PATHOLOGY REPORT DATE OF NOTE: JAN 03, 2022@10:28:01 ENTRY DATE: JAN 03, 2022@10:28:01 AUTHOR: NIURKA MILLER EXP COSIGNER: URGENCY: STATUS: COMPLETED $APHDR Reporting Lab: CAREY DOYLE [facility] [CLIA# [id number]] [address] [place] [address] - - - - - - [...] automatically d ocumented from SURGERY package case #[id number] Field (#32) PRINCIPAL PRE-OP DIAGNOSIS, (#.72) OTHER [...] automatically d ocumented from SURGERY package case #[id number] Field (#34) PRINCIPAL POST-OP DIAG, (#.74) OTHER [...] Label: Lucas Meek Paperwork: Lucas Meek Cassette: [id number];..;KALYANI;.;405;[id number] Specimen is labeled: ES bx Received in formalin are several pieces of pale boyd and brown tissue, 1.2 x 0.7 cm in aggregate. Submitted entirely in 1 cassette [id number];..;KALYANI;.;405;[id number] SAW 12/15/2021 Microscopic exam: *+* MODIFIED REPORT *+* (Last modified: JAN 03, 2022@09:30:20 typed by NIURKA WADDELL) DIAGNOSIS: A. 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 Kendell long. TIARA Coombs was notified on 12/21/21. Modified on 01/03/22 to include report from [facility] stating that tumor is NEGATIVE for her2/ matheus amplification. The attending pathologist who signature mansoor ears on this report has reviewed all diagnostic slides and has edited t he gross and/or microscopic portion of this report in rendering the final pathologic diagnosis. [address] [address] CPT: 80460 /emely/ NIURKA Yeung MD Signed Jan 03, 2022@10:28 Performing Laboratory: Surgical Pathology Report Performed By: CAREY MONTOYA [facility] [CLIA# [id number]] [address] [place] [address] $FTR - - - - - [...] - - LUCAS MEEK STANDARD FORM 515 ID:[id number] SEX:M :1950 AGE: 71 LOC: SDM END PCP: Isatu Todd /emely/ NIURKA Yeung MD Signed: 01/03/2022 10:28
--- OUTSIDE RECORDS SUMMARY | 2022-01-19 09:27 | XMS_ITS | Encounter Summary ---
:1950 Author Organization [facility] rs Address [address] [place] [address] Support Name Relationship Address Phone YUSRA AUGUSTE Unavailable [address] [place] [address] YUSRA AUGUSTE Unavailable [address] [place] [address] CLAY MOSLEY Unavailable Unavailable SJ SANTACRUZ Unavailable [...] MEDICARE MEDICARE PART Jun 18, PART A [id number] DO KALYANI PATIENT (WNR) (M) A 2016 13A 1 [place] MEDICARE MEDICARE PART Jun 18, PART B [id number] DO KALYANI PATIENT (WNR) (M) B 2016 13A 1 [place] MEDICARE MEDICARE PART Jun 18, PART A [id number] DO KALYANI PATIENT (WNR) (M) A 2017 VH81 2 [place] MEDICARE MEDICARE PART Jun 18, PART B [id number] DO KALYANI PATIENT (WNR) (M) B 2017 VH81 2 LAS UNITED MEDICARE MCR(W Jun 18 [id number] Luz AUGUSTE PATIENT HEALTHCARE ADVANTAGE NR) 2021 37 0 [facility] (WNR) Selected Encounter This section includes the information on record at DC for the Encounter. Date/Time Encounter Type Encounter Description Reason Provider Source IHE Encounter Template Text not used by [facility]
--- OUTSIDE RECORDS SUMMARY | 2022-01-19 09:27 | XMS_ITS ---
:1950 Author Organization [facility] rs Address [address] [place] [id number] Support Name Relationship Address Phone YUSRA MEEK Unavailable [address] [place] [address] YUSRA MEEK Unavailable [address] [place] [facility] [place] [address] CLAY MOSLEY Unavailable Unavailable SJ SANTACRUZ Unavailable [...] MEDICARE MEDICARE PART Jun 18, PART A [id number] DO KALYANI PATIENT (WNR) (M) A 2016 13A 1 UGLAS MEDICARE MEDICARE PART Jun 18, PART A [id number] KALYANIDO PATIENT (WNR) (M) A 2017 VH81 2 LAS MEDICARE MEDICARE PART Jun 18, PART B [id number] KALYANIDO PATIENT (WNR) (M) B 2016 13A 1 LAS MEDICARE MEDICARE PART Jun 18, PART B [id number] MEEK DO PATIENT (WNR) (M) B 2017 VH81 2 LAS UNITED MEDICARE MCR(W Jun 18 [id number] Luz MEEK PATIENT HEALTHCARE ADVANTAGE NR) [address] [facility] (WNR) Selected Encounter This section includes the information on record at [place] for the Encounter. Date/Time Encounter Type Encounter Description Reason Provider Source Dec 13, 2021 02:30 PM Inpatient Visit OTOLARYNGOLOGY/ENT IHE Encounter Template Text not used by [...] AMBULATORY - NONE [place] [facility] Jan 06, 2022 02:00 PM [place] [facility] Jan 10, 2022 11:30 AM [facility] - MEDICINE [facility] Jan 24, 2022 08:00 AM [place] [facility] Feb 21, 2022 10:00 AM [place] [facility] Mar 21, 2022 10:30 AM AMBULATORY - [...] The data comes from all [place] treatment [facility]. Test Date/Time Test Type Test Details Facility Name October 31, 2021 07:37 AM Consult Order [facility] Cons [employer] November 15, 2021 10:37 AM Consult Order [facility] CARE-PODIATRY Cons [employer] [employer] [facility] Dec 06, 2021 12:52 PM [place] [facility] Dec 06, 2021 03:24 PM [facility] [place] [facility] Dec 06, 2021 03:40 PM [facility] [place] [facility] Dec 15, 2021 08:41 AM Consult Order SPEECH PATHOLOGY [place] Cons [facility] [employer] Jan 15, 2022 10:08 PM Consult Order [facility] CARE-PALLIATIVE CARE Cons [employer] Lab Results: +/- 30 days of [...] Interpretation Reference Range Comment Dec 15, 2021 [facility] P4 GLU,BUN,CREAT,LYTES,CA Speci men Type: PLASMA 06:43 AM [facility] Comment: Tests performed on [employer] (405) SN:[id number] Ordering Provid er: ISATU TODD Report Released Date/Time: Dec 11, 2021 07:42 AM Reporting Lab: [facility] [address] [facility] [address] Performing Lab: [facility] [address] [facility] [address] UREA NITROGEN 9 7-25 SODIUM 137 135-145 POTASSIUM 3.8 3.5-5.0 CHLORIDE 105 100-110 CARBON DIOXIDE 26 20-30 ANION GAP 6 4-16 GLUCOSE 102 H 65-100 CREATININE 0.64 0.5-1.5 CALCIUM 8.1 L 8.5-10.5 eGFR(CKD-EPI 2020) >90.0 >60 Dec 15, 2021 06:43 AM [facility] CBC PROFILE Sp ecimen Type: BLOOD No comment enter ed. Ordering Provid er: ISATU TODD Report Released Date/Time: Dec 10, 2021 07:22 AM Reporting Lab: [facility] [address] [facility] [address] Performing Lab: [facility] [address] [facility] [address] WBC 5.7 4.5-11.0 RBC 4.22 L 4.23-5.66 [...] CYTOGENETIC Specimen Type: ESOPHAGUS 02:59 PM [facility] FISH([facility]) Comment: ~For T est: CYTOGENETIC FISH([facility]) ~FISH HER 2 NUE, FFPE See full report in [employer] Image display viewer/tab#LAB-Reference Ordering Provid er: NIURKA MILLER Report Released Date/Time: Dec 21, 2021 12:11 PM Reporting Lab: [facility] [address] [facility] [address] Performing Lab: [facility] CYTOGENETIC FISH([facility]) comment Dec 14, 2021 [facility] P4 GLU,BUN,CREAT,LYTES,CA Speci men Type: PLASMA 06:27 AM [facility] Comment: Tests performed on [employer] (405) SN:[id number] Ordering Provid er: ISATU TODD Report Released Date/Time: Dec 11, 2021 07:42 AM Reporting Lab: [facility] [address] [facility] [address] Performing Lab: [facility] [address] [facility] [address] UREA NITROGEN 10 7-25 SODIUM 137 135-145 POTASSIUM 4.0 3.5-5.0 CHLORIDE 104 100-110 CARBON DIOXIDE 25 20-30 ANION GAP 8 4-16 GLUCOSE 99 65-100 CREATININE 0.67 0.5-1.5 CALCIUM 8.2 L 8.5-10.5 eGFR(CKD-EPI 2020) >90.0 >60 Dec 14, 2021 06:27 AM [facility] CBC PROFILE Sp ecimen Type: BLOOD No comment enter ed. Ordering Provid er: ISATU TODD Report Released Date/Time: Dec 10, 2021 07:22 AM Reporting Lab: [facility] [address] [facility] [address] Performing Lab: [facility] [address] [facility] [address] WBC 6.0 4.5-11.0 RBC 4.29 4.23-5.66 HGB [...] 0.00 0-0 Dec 13, 2021 06:34 AM [facility] CBC PROFILE Sp ecimen Type: BLOOD No comment enter ed. Ordering Provid er: ISATU TODD Report Released Date/Time: Dec 10, 2021 07:22 AM Reporting Lab: [facility] [address] [facility] [address] Performing Lab: [facility] [address] [facility] [address] WBC 5.6 4.5-11.0 RBC 4.28 4.23-5.66 HGB [...] [facility] Comment: Tests performed on [employer] (405) SN:[id number] Ordering Provid er: ISATU TODD Report Released Date/Time: Dec 11, 2021 07:42 AM Reporting Lab: [facility] [address] [facility] [address] Performing Lab: [facility] [address] [facility] [address] UREA NITROGEN 12 7-25 SODIUM 136 135-145 POTASSIUM 3.9 3.5-5.0 CHLORIDE 105 100-110 CARBON DIOXIDE 24 20-30 ANION GAP 7 4-16 GLUCOSE 102 H 65-100 CREATININE 0.66 0.5-1.5 CALCIUM 8.3 L 8.5-10.5 eGFR(CKD-EPI 2020) >90.0 >60 Dec 12, 2021 [facility] P[facility] GLU,BUN,CREAT,LYTES,CA Speci men Type: PLASMA 06:21 AM [facility] Comment: Tests performed on [employer] (405) SN:[id number] Ordering Provid er: ISATU TODD Report Released Date/Time: Dec 11, 2021 07:42 AM Reporting Lab: [facility] [address] [facility] [address] Performing Lab: [facility] [address] [facility] [address] UREA NITROGEN 11 7-25 SODIUM 139 135-145 POTASSIUM 4.1 3.5-5.0 CHLORIDE 107 100-110 CARBON DIOXIDE 24 20-30 ANION GAP 8 4-16 GLUCOSE 110 H 65-100 CREATININE 0.70 0.5-1.5 CALCIUM 8.3 L 8.5-10.5 eGFR(CKD-EPI 2020) >90.0 >60 Dec 12, 2021 06:21 AM [facility] CBC PRO[facility] Sp ecimen Type: BLOOD No comment enter ed. Ordering Provid er: ISATU TODD Report Released Date/Time: Dec 10, 2021 07:22 AM Reporting Lab: [facility] [address] [facility] [address] Performing Lab: [facility] [address] [facility] [address] WBC 5.5 4.5-11.0 RBC 4.37 4.23-5.66 HGB [...] Dec 12, 2021 06:00 AM [place] [facility] MAGNESIUM Sp ecimen Type: PLASMA Comment: Testin g Performed on [employer] (405) SN:[id number] Ordering Provid er: ISATU TODD Report Released Date/Time: Dec 12, 2021 08:24 AM Reporting Lab: [place] [facility] [address] [facility] [address] Performing Lab: [facility] [address] [facility] [address] MAGNESIUM 1.8 1.6-2.6 Dec 12, 2021 06:00 AM [place] [facility] PHOSPHORUS Sp ecimen Type: PLASMA Comment: Testin g Performed on [employer] (405) SN:[id number] Ordering Provid er: ISATU TODD Report Released Date/Time: Dec 12, 2021 08:24 AM Reporting Lab: [place] [facility] [address] [facility] [address] Performing Lab: [facility] [address] [facility] [address] PHOSPHORUS 3.1 2.5-5.0 Dec 11, 2021 06:15 AM [facility] ELECTROLYTES Sp ecimen Type: PLASMA Comment: Tests performed on [employer] (405) SN:[id number] Ordering Provid er: ISATU TODD Report Released Date/Time: Dec 10, 2021 07:22 AM Reporting Lab: [place] [facility] [address] [facility] [address] Performing Lab: [facility] [address] [facility] [address] SODIUM 137 135-145 POTASSIUM 4.3 3.5-5.0 CHLORIDE 108 100-110 CARBON DIOXIDE 20 20-30 ANION GAP 9 4-16 Dec 11, 2021 06:15 AM [place]ME[place] [facility] CBC PROFILE Sp ecimen Type: BLOOD Comment: Result s checked Ordering Provid er: ISATU TODD Report Released Date/Time: Dec 10, 2021 07:22 AM Reporting Lab: [place] OMEGAT [facility] [address] [facility] [address] Performing Lab: [place] OMEGAT [facility] [address] [facility] [address] WBC 5.8 4.5-11.0 RBC 4.37 4.23-5.66 HGB [...] 0.00 0-0 Dec 11, 2021 06:00 AM [place] [facility] PHOSPHORUS Sp ecimen Type: PLASMA Comment: Tests performed on [employer] (762) SN:[id number] Results checked Ordering Provid er: ISATU TODD Report Released Date/Time: Dec 11, 2021 07:44 AM Reporting Lab: [place] OMEGAT [facility] [address] [facility] [address] Performing Lab: [place] OME[place] [facility] [address] [facility] [address] PHOSPHORUS 3.0 2.5-5.0 Dec 10, 2021 08:05 AM [place] [facility] MAGNESIUM Sp ecimen Type: PLASMA Comment: [place] [id number] on Dec 10, 2021@08:31 Tests performed on [employer] (405) SN:[id number] Ordering Provid er: ISATU TODD Report Released Date/Time: Dec 10, 2021 07:22 AM Reporting Lab: [place] [facility] [address] [facility] [address] Performing Lab: [place] [facility] [address] [facility] [address] MAGNESIUM 1.7 1.6-2.6 Dec 10, 2021 08:05 AM [place] [facility] PHOSPHORUS Sp ecimen Type: PLASMA Comment: [place] [id number] on Dec 10, 2021@08:31 Tests performed on [employer] (405) SN:[id number] Ordering Provid er: ISATU TODD Report Released Date/Time: Dec 10, 2021 07:22 AM Reporting Lab: [place] [facility] [address] [place] [facility] [place] [address] Performing Lab: [place] [facility] [address] [place] [facility] [place] [address] PHOSPHORUS 1.8 L 2.5-5.0 Dec 10, 2021 08:05 AM [place] UREA NITROGEN Specimen Type: PLASMA [facility] Comment: [place] [id number] on Dec 10, 2021@08:31 Tests performed on [employer] (405) SN:[id number] Ordering Provid er: ISATU TODD Report Released Date/Time: Dec 10, 2021 07:22 AM Reporting Lab: [place] [facility] [address] [place] [facility] [place] [address] Performing Lab: [place] [facility] [address] [place] [facility] [place] [address] UREA NITROGEN 8 7-25 Dec 10, 2021 08:05 AM [place] [facility] GLUCOSE Sp ecimen Type: PLASMA Comment: [place] [id number] on Dec 10, 2021@08:31 Tests performed on [employer] (405) SN:[id number] Ordering Provid er: ISATU TODD Report Released Date/Time: Dec 10, 2021 07:22 AM Reporting Lab: [place] [facility] [address] [facility] [address] Performing Lab: [place] [facility] [address] [facility] [address] GLUCOSE 144 H 65-100 Dec 10, 2021 08:05 AM [place] [facility] ELECTROLYTES Sp ecimen Type: PLASMA Comment: [place] [id number] on Dec 10, 2021@08:31 Tests performed on [employer] (405) SN:[id number] Ordering Provid er: ISATU TODD Report Released Date/Time: Dec 10, 2021 07:22 AM Reporting Lab: [place] [facility] [address] [facility] [address] Performing Lab: [place] [facility] [address] [facility] [address] SODIUM 139 135-145 POTASSIUM 3.7 3.5-5.0 CHLORIDE 107 100-110 CARBON DIOXIDE 24 20-30 ANION GAP 8 4-16 Dec 10, 2021 08:05 AM [place] [facility] CALCIUM Sp ecimen Type: PLASMA Comment: [place] [id number] on Dec 10, 2021@08:31 Tests performed on [employer] (405) SN:[id number] Ordering Provid er: ISATU TODD Report Released Date/Time: Dec 10, 2021 07:22 AM Reporting Lab: [place] [facility] [address] [facility] [address] Performing Lab: [place] [facility] [address] [facility] [address] CALCIUM 8.3 L 8.5-10.5 Dec 10, 2021 08:05 AM [place] [facility] CBC PROFILE Sp ecimen Type: BLOOD No comment enter ed. Ordering Provid er: ISATU TODD Report Released Date/Time: Dec 10, 2021 07:22 AM Reporting Lab: [place] [facility] [address] [facility] [address] Performing Lab: [place] [facility] [address] [facility] [address] WBC 7.0 4.5-11.0 RBC 4.54 4.23-5.66 HGB [...] PLASMA AM [facility] PANEL [place]: [place] [id number] on Dec 10, 2021@08:31 Tests performed on [employer] (405) SN:[id number] Ordering Provid er: ISATU TODD Report Released Date/Time: Dec 10, 2021 07:22 AM Reporting Lab: [place] [facility] [address] [facility] [address] Performing Lab: [place] [facility] [address] [facility] [address] CREATININE 0.78 0.5-1.5 eGFR(CKD-EPI 2020) >90.0 >60 Dec 09, 2021 06:46 AM [place] [facility] MAGNESIUM Sp ecimen Type: PLASMA Comment: Tests performed on [employer] (405) SN:[id number] Ordering Provid er: ISATU TODD Report Released Date/Time: Dec 08, 2021 10:23 AM Reporting Lab: [place] [facility] [address] [facility] [address] Performing Lab: [place] [facility] [address] [facility] [address] MAGNESIUM 1.6 1.6-2.6 Dec 09, 2021 [facility] P4 GLU,BUN,CREAT,LYTES,CA Speci men Type: PLASMA 06:46 AM [facility] Comment: Tests performed on [employer] (405) SN:[id number] Ordering Provid er: ISATU TODD Report Released Date/Time: Dec 08, 2021 05:00 PM Reporting Lab: [facility] [address] [facility] [address] Performing Lab: [facility] [address] [facility] [address] UREA NITROGEN 6 L 7-25 SODIUM 134 L 135-145 POTASSIUM 3.7 3.5-5.0 CHLORIDE 103 100-110 CARBON DIOXIDE 23 20-30 ANION GAP 8 4-16 GLUCOSE 112 H 65-100 CREATININE 0.70 0.5-1.5 CALCIUM 8.1 L 8.5-10.5 eGFR(CKD-EPI 2020) >90.0 >60 Dec 09, 2021 06:46 AM [facility] CBC PROFILE Sp ecimen Type: BLOOD No comment enter ed. Ordering Provid er: ISATU TODD Report Released Date/Time: Dec 08, 2021 05:00 PM Reporting Lab: [facility] [address] [facility] [address] Performing Lab: [facility] [address] [facility] [address] WBC 7.1 4.5-11.0 RBC 4.40 4.23-5.66 HGB [...] 0.00 0-0 Dec 08, 2021 06:39 AM [facility] MAGNESIUM Sp ecimen Type: PLASMA Comment: Testin g Performed on [employer] (405) SN:[id number] Ordering Provid er: ISATU TODD Report Released Date/Time: Dec 07, 2021 10:32 AM Reporting Lab: [facility] [address] [facility] [address] Performing Lab: [facility] [address] [facility] [address] MAGNESIUM 1.5 L 1.6-2.6 Dec 08, 2021 06:39 AM [facility] CBC PROFILE Sp ecimen Type: BLOOD No comment enter ed. Ordering Provid er: ISATU TODD Report Released Date/Time: Dec 07, 2021 10:32 AM Reporting Lab: [facility] [address] [facility] [address] Performing Lab: [facility] [address] [facility] [address] WBC 8.4 4.5-11.0 RBC 4.75 4.23-5.66 HGB [...] ABSOLUTE NRBC 0.00 0-0 Dec 08, 2021 [facility] P4 GLU,BUN,CREAT,LYTES,CA Speci men Type: PLASMA 06:39 AM [facility] Comment: Testin g Performed on [employer] (405) SN:[id number] Ordering Provid er: ISATU TODD Report Released Date/Time: Dec 07, 2021 10:32 AM Reporting Lab: [facility] [address] [facility] [address] Performing Lab: [facility] [address] [facility] [address] UREA NITROGEN 6 L 7-25 SODIUM 136 135-145 POTASSIUM 3.3 L 3.5-5.0 CHLORIDE 104 100-110 CARBON DIOXIDE 22 20-30 ANION GAP 10 4-16 GLUCOSE 133 H 65-100 CREATININE 0.76 0.5-1.5 CALCIUM 8.4 L 8.5-10.5 eGFR(CKD-EPI 2020) >90.0 >60 Dec 07, 2021 [facility] P4 GLU,BUN,CREAT,LYTES,CA Speci men Type: PLASMA 06:42 AM [facility] Comment: Tests performed on [employer] (405) SN:[id number] Ordering Provid er: PORFIRIO WALTERS Report Released Date/Time: Dec 06, 2021 06:57 PM Reporting Lab: [facility] [address] [facility] [address] Performing Lab: [facility] [address] [facility] [address] UREA NITROGEN 9 7-25 SODIUM 135 135-145 POTASSIUM 3.5 3.5-5.0 CHLORIDE 103 100-110 CARBON DIOXIDE 22 20-30 ANION GAP 10 4-16 GLUCOSE 92 65-100 CREATININE 0.73 0.5-1.5 CALCIUM 8.0 L 8.5-10.5 eGFR(CKD-EPI 2020) >90.0 >60 Dec 07, 2021 06:42 [place] PROFILE Specimen Typ e: PLASMA AM [facility] Comment: Tests performed on [employer] (405) SN:[id number] Ordering Provid er: PORFIRIO WALTERS Report Released Date/Time: Dec 06, 2021 06:57 PM Reporting Lab: [facility] [address] [facility] [address] Performing Lab: [facility] [address] [facility] [address] PROTEIN, TOTAL 5.7 L 6.0-8.5 ALBUMIN 2.4 L 3.2-5.0 BILIRUBIN, TOTAL 0.4 0.2-1.2 ALKALINE PHOSPHATASE 109 40-150 ALT(SGPT) 10 7-52 AST(SGOT) 15 5-34 FIB-4 SCORE 1.92 <2.67 Dec 07, 2021 06:42 AM [facility] CBC PROFILE Specimen Type: BLOOD [facility] No comment enter ed. Ordering Provid er: PORFIRIO WALTERS Report Released Date/Time: Dec 06, 2021 06:57 PM Reporting Lab: [facility] [address] [facility] [address] Performing Lab: [facility] [address] [facility] [address] WBC 5.7 4.5-11.0 RBC 4.15 L 4.23-5.66 [...] [facility] %) AUTOMATED Comment: Tests performed on [employer] (405) SN:[id number] Ordering Provid er: ISATU TODD Report Released Date/Time: Dec 07, 2021 10:28 AM Reporting Lab: [place] [facility] [address] [facility] [address] Performing Lab: [place] [facility] [address] [facility] [address] RETICULOCYTES (%) AUTOMATED 1.23 0. 6-2.0 RETICULOCYTES (ABS) AUTOMATED 0.052 0.030-0.090 Dec 06, 2021 09:45 [place] MRSA SURVL NARES Specimen Ty pe: NARES PM [facility] DNA No comment enter ed. Ordering Provid er: ALVARO VARGHESE Report Released Date/Time: Dec 07, 2021 02:20 AM Reporting Lab: [place] [facility] [address] [facility] [address] Performing Lab: [place] [facility] [address] [facility] [address] MRSA SURVL NARES DNA NEGATIVE NEGATIVE Dec 06, 2021 06:00 [place] URINALYSIS W/REFLEX TO Speci men Type: URINE PM [facility] CULTURE No comment enter ed. Ordering Provid er: JELANI SÁNCHEZ Report Released Date/Time: Dec 06, 2021 11:57 AM Reporting Lab: [place] [facility] [address] [facility] [address] Performing Lab: [place] [facility] [address] [facility] [address] URINE COLOR Arlin YELLOW SPECIFIC GRAVITY 1.029 [...] 21, RIVER VARIANT Comment: https://www.cdc.gov/coronavirus/2019-ncov/cases-updates/variant- surveillance/variant-info.html [employer] SARS CoV 2 [employer] Assay-GX is a next-generation sequencing (NGS) assa 2021 [facility] SEQUENCING y that determine s the complete genome sequence of the SARS-CoV-2 virus. The assay contains variant-tolerant primers to broaden and improve the coverage for variant detection and increase the sensitivity 12:00 [facility] PNL(WH) of the panel to enable detection from lower viral titer samples. The assay is run on the [employer] Sequencer, which performs automated library preparation, sequencing, analysis, and reporting. PM The sequence an alysis includes determination of viral phylogenetic lineage by comparison to the reference strain Wuhan-Hu-1, GenBank: [id number]. Sequence determination may not be possible owing [...] its performance characteristics determined by the [facility] Molecular Diagnostics Laboratory, which is certified under the Clinical Laboratory Improveme nt Amendments (C MARCO) as qualified to perform high complexity clinical laboratory testing. This test is validated for clinical use at [facility] and should not be regarded [...] 2021 01:13 PM Reporting Lab: [facility] [address] [facility] [address] Performing Lab: [facility] [address] [facility] [address] SARS-CoV-2 CLADE() 22C (OMICRON) SARS-CoV-2 LINEAGE() BA.2.12.1 Dec 06, 2021 12:00 [facility] COVID-19 AG SCREEN Specimen Type: NASAL CAVITY PM [facility] PANEL [employer]INAX(405) Comment: Testi ng Performed By: Mike Briscoe Ordering Provid er: JELANI SÁNCHEZ Report Released Date/Time: Dec 08, 2021 08:23 AM Reporting Lab: [facility] [address] [facility] [address] Performing Lab: [facility] [address] [facility] [address] COVID-19 AG SCRN(wrj BINAX) POSITIVE HH NE G Dec 06, 2021 12:00 PM [facility] TROPONIN II Sp ecimen Type: PLASMA Comment: Tests performed on [employer] Specialist (405) SN:[id number] Ordering Provid er: JELANI SÁNCHEZ Report Released Date/Time: Dec 06, 2021 11:57 AM Reporting Lab: [facility] [address] [facility] [address] Performing Lab: [facility] [address] [facility] [address] TROPONIN II 0.03 0.00-0.29 Dec 06, 2021 [facility] GLU,BUN,CREAT,LYTES,CA Speci men Type: PLASMA 12:00 PM [facility] Comment: Testin g Performed on [employer]ist (405) SN:[id number] Ordering Provid er: JELANI SÁNCHEZ Report Released Date/Time: Dec 06, 2021 11:57 AM Reporting Lab: [facility] [address] [facility] [address] Performing Lab: [facility] [address] [facility] [address] UREA NITROGEN 13 7-25 SODIUM 138 135-145 POTASSIUM 3.8 3.5-5.0 CHLORIDE 103 100-110 CARBON DIOXIDE 23 20-30 ANION GAP 12 4-16 GLUCOSE 105 H 65-100 CREATININE 0.90 0.5-1.5 CALCIUM 8.7 8.5-10.5 eGFR(CKD-EPI 2020) >90.0 >60 Dec 06, 2021 12:00 PM [facility] LIVER PROFILE Sp ecimen Type: PLASMA Comment: Testin g Performed on Pham [employer] (405) SN:[id number] Ordering Provid er: JELANI SÁNCHEZ Report Released Date/Time: Dec 06, 2021 11:57 AM Reporting Lab: [facility] [address] [facility] [address] Performing Lab: [facility] [address] [facility] [address] PROTEIN, TOTAL 6.6 6.0-8.5 ALBUMIN 2.8 L 3.2-5.0 BILIRUBIN, TOTAL 0.6 0.2-1.2 ALKALINE PHOSPHATASE 134 40-150 ALT(SGPT) 13 7-52 AST(SGOT) 18 5-34 FIB-4 SCORE 1.94 <2.67 Dec 06, 2021 [facility] COVID-19+FLU/RSV DIAGNOSTIC Spe cimen Type: NASOPHARYNX 12:00 PM [facility] PANEL(405) Comment: Tests performed on Sympler Genexpert (405) Critical results called to and read back by: ALESHIA WILKINSON RN 12/06/21 @ 1312 Ordering Provid er: JELANI SÁNCHEZ Report Released Date/Time: Dec 06, 2021 11:57 AM Reporting Lab: [facility] [address] [facility] [address] Performing Lab: [facility] [address] [facility] [address] FLU A(PCR) NEGATIVE NEGATIVE FLU B(PCR) NEGATIVE NEGATIVE RSV(PCR) NEGATIVE NEGATIVE COVID-19([id number]) DETECTED HH NO T DETECTED Dec 06, 2021 12:00 PM [facility] [facility] B[facility] Sp ecimen Type: PLASMA Comment: Tests performed on Pham Science Specialist ([id number]) SN:[id number] Ordering Provid er: JELANI SÁNCHEZ Report Released Date/Time: Dec 06, 2021 11:57 AM Reporting Lab: [facility] [address] [facility] [facility] [address] Performing Lab: [facility] [address] [facility] [facility] [address] BNP(P) 224.8 H 10-100 Dec 06, 2021 12:00 PM [facility] CBC PROFILE Sp ecimen Type: BLOOD No comment enter ed. Ordering Provid er: JELANI SÁNCHEZ Report Released Date/Time: Dec 06, 2021 11:57 AM Reporting Lab: [facility] [address] [facility] [facility] [address] Performing Lab: [facility] [address] [facility] [facility] [address] WBC 7.2 4.5-11.0 RBC 4.86 4.23-5.66 HGB [...] 09:20 /min mm[Hg] RIVER PM [facility] Dec 13, 97.9 F 82 108/62 20 /min 96 % WHITE 2021 03:27 /min mm[Hg] RIVER PM [facility] Dec 13, 0 WHITE 2021 02:44 RIVER PM [facility] Dec 13, 0 WHITE 2021 08:15 RIVER AM [facility] Dec 13, 0 WHITE 2021 05:18 RIVER AM [facility] Social History: Smoking Status (Most [...] USE 1-7 YEARS AGO [facility] Mar 24, 2020 03:00 PM QUIT TOBACCO USE 1-7 YEARS AGO [facility] Feb 21, 2019 04:11 PM QUIT TOBACCO USE 1-7 YEARS AGO [facility] Feb 20, 2019 03:38 PM QUIT TOBACCO USE 1-7 YEARS AGO [facility] Feb 03, 2019 09:50 AM QUIT TOBACCO USE 1-7 YEARS AGO [facility] May 25, 2016 11:53 PM QUIT TOBACCO USE IN PAST YEAR [facility] May 23, 2016 06:57 PM QUIT TOBACCO USE > 7 YEARS AGO [facility] May 19, 2016 03:55 PM QUIT TOBACCO USE IN PAST YEAR [facility] May 19, 2016 10:29 AM QUIT TOBACCO USE 1-7 YEARS AGO [facility] May 01, 2016 07:26 PM QUIT TOBACCO USE IN PAST YEAR CAREY DOYLE [facility] May 01, 2016 03:11 PM QUIT TOBACCO USE IN PAST YEAR CAREY DOYLE [facility] May 01, 2016 11:19 AM QUIT TOBACCO USE IN PAST YEAR CAREY DOYLE [place] [facility] Mar 16, 2016 12:50 PM V1-PT DECLINES REF TO TOBACCO CAREY DOYLE [facility] CESS PRGM Mar 16, 2016 12:50 PM V1-PT THINKING ABOUT QUIT CAREY DOYLE [facility] TOBACCO USE Aug 12, 2015 08:48 AM CURRENT SMOKER CAREY Yates [facility] Radiology Reports: +/- 30 days [...] W/WO CONTRAST: MARYELLEN LONG LUCAS LARES N [id number] -1950 [facility] Exm Date: DEC 13, 2021@12:57 Req Phys: ISATU TODD Loc: OP Unknown/0 12-15-2021@13:20 Img Loc: MRI IMAGING (OOS) Service: [facility] MEDICINE (Case [id number] COMPLETE) MRI ABDOMEN W/WO CONTRAST (M RI Detailed) CPT:09072 Reason for Study: further characterization of a [...] new lyphadenopathy REQUESTING MD: Isatu Todd PAGER: [phone] PHONE: [phone] Weight: 232.2 lb [105.32 kg] (12/12/2021 05:00) [...] will need to arrange for a 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 intermodal 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 to take him/her home [...] 2021 Date Verified: DEC 15, 2021 Nurse Esthetician E-Sig:/ES/MARYELLEN LONG Report: MRI ABDOMEN W/WO CONTRAST [...] Primary Interpreting Staff: Staff AMELIA THOMAS (Nurse Esthetician) / Dec 10, 2021 09:[address] ABDOMEN & PELVIS: RADIOLOGY,[facility] LUCAS MEEK N [id number] -1950 M SERVICE [facility] Exm Date: DEC 10, 2021@09:30 Req Phys: ISATU TODD Loc: 1S MED/12-10@10:57 Img Loc: CT SCAN (OOS) Service: [facility] MEDICINE (Case [id number] COMPLETE) CT ABD & PELVIS WITHOUT CONT RAST (CT Detailed) CPT:06540 Reason for Study: 71 yo male with [...] RADIOLOGY [phone] to speak to the appropriate die cast technician. Report Status: Verified Date Reported: DEC 10, 2021 Date Verified: DEC 10, 2021 Nurse Esthetician E-Sig: Report: EXAM: CT abdomen and pelvis [...] ph nodes. READING PHYSICIAN: Ramone Munoz D.O. [phone] 12/10/2021 10:55 EDT [facility] National Teleradiology Program [phone] (For Medical Practitioner Use Only ) [address] [facility], [facility] [address] [place] [address] Attention Patients / Veterans: If you have ques tions or concerns about these test results, please contact your o rdering provider or primary care team. Primary Diagnostic Code: SIGNIFICANT ABNORMALIT Y, ATTN NEEDED Primary Interpreting Staff: RADIOLOGY,OUTSIDE SERVICE, Staff Physician / Dec 09, 2021 07:34 AM BASW (MODIFIED): JESSIE CHENEY ER JCT LUCAS MEEK N [id number] -1950 M [facility] Exm Date: DEC 09, 2021@07:34 Req Phys: ISATU TODD Loc: 1S MED/12-09@11:26 Img Loc: XRAY (OOS) Service: [facility] MEDICINE (Case [id number] COMPLETE) BASW (MODIFIED) (RAD Detaile d) CPT:03176 Contrast Media : Barium Reason for Study: dysphagia ?esophageal spasm Clinical History: Report Status: Verified Date Reported: DEC 09, 2021 Date Verified: DEC 09, 2021 Nurse Esthetician E-Sig:/ES/JESSIE CHENEY Report: BASW (MODIFIED) , 12/09/2021 [...] Primary Interpreting Staff: JESSIE CHENEY, RADIOLOGIST (Nurse Esthetician) /TLC Dec 06, 2021 12:[address] CHEST (INCLUDES ADRENALS): JESSIE CHENEY [facility] LUCAS EMEK N [id number] -[address] [facility] Exm Date: DEC 06, 2021@12:59 Req Phys: JELANI SÁNCHEZ Pat Loc: [facility] ED DAYS M 1RD (Req'g Loc) Img Loc: CT SCAN (OOS) Service: Unknown (Case [id number] COMPLETE) CT THORAX W/O CONT (CT Detai led) CPT:06870 Reason for Study: Opacification right chest Clinical History: No contrast allergy BUN: 13 (12/06/21 12:00) CREATI: 0.90 (12/06/21 12:00) eGFR 05/16/21 09:43 52 L Weight: 232.6 lb [105.51 kg] (12/06/2021 11:40) BODY MASS INDEX - NO HEIGHTS FOUND Pager number: [phone] STAT orders MUST be called t o RADIOLOGY [phone] to speak to the appropriate die cast technician. Indications - Other: Opacification right chest, covid positive, lung cancer histo Report Status: Verified Date Reported: DEC 06, 2021 Date Verified: DEC 06, 2021 Nurse Esthetician E-Sig:/ES/JESSIE CHENEY Report: CT THORAX W/O CONT [...] Primary Interpreting Staff: JESSIE CHENEY, RADIOLOGIST (Nurse Esthetician) Primary Interpreting Resident: PRINCE CHAMPION, Resident /BR Dec 06, 2021 11:58 AM CHEST SINGLE VIEW: JESSIE CHENEYLUCAS N [id number] -1950 [facility] Exm Date: DEC 06, 2021@11:58 Req Phys: JELANI SÁNCHEZ Pat Loc: [facility] ED DAYS M 1RD (Req'g Loc) Img Loc: XRAY (OOS) Service: Unknown (Case [id number] COMPLETE) CHEST SINGLE VIEW (RAD Detai led) CPT:16559 Proc Modifiers : PORTABLE EXAM Reason for Study: SOB, home covid test positive Clinical History: Report Status: Verified Date Reported: DEC 06, 2021 Date Verified: DEC 06, 2021 Nurse Esthetician E-Sig:/ES/JESSIE CHENEY Report: Exam type: Chest x-ray [...] Primary Interpreting Staff: JESSIE CHENEY, RADIOLOGIST (Nurse Esthetician) /TLC Pathology Reports: +/- 30 days of [...] AM LR SURGICAL PATHOLOGY REPORT: STEFANY MILLER [facility] LOCAL TITLE: LR SURGICAL PATHOLOGY REPORT [facility] STANDARD TITLE: PATHOLOGY REPORT DATE OF NOTE: JAN 03, 2022@10:28:01 ENTRY DATE: JAN 03, 2022@10:28:01 AUTHOR: NIURKA MILLER EXP COSIGNER: URGENCY: STATUS: COMPLETED $APHDR Reporting Lab: [facility] [CLIA# [id number]] [address] [place] [address] - - - - - - [...] automatically d ocumented from SURGERY package case #[id number] Field (#32) PRINCIPAL PRE-OP DIAGNOSIS, (#.72) OTHER [...] automatically d ocumented from SURGERY package case #[id number] Field (#34) PRINCIPAL POST-OP DIAG, (#.74) OTHER [...] Label: Lucas Meek Paperwork: Lucas Meek Cassette: [id number];..;KALYANI;.;217;[id number] Specimen is labeled: ES bx Received in formalin are several pieces of pale boyd and brown tissue, 1.2 x 0.7 cm in aggregate. Submitted entirely in 1 cassette [id number];..;KALYANI;.;405;[id number] SAW 12/15/2021 Microscopic exam: *+* MODIFIED REPORT *+* (Last modified: JAN 03, 2022@09:30:20 typed by NIURKA WADDELL) DIAGNOSIS: A. 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 Kendell long. TIARA Coombs was notified on 12/21/21. Modified on 01/03/22 to include report from [facility] stating that tumor is NEGATIVE for her2/ matheus amplification. The attending pathologist who signature mansoor ears on this report has reviewed all diagnostic slides and has edited t he gross and/or microscopic portion of this report in rendering the final pathologic diagnosis. [address] [address] CPT: 41926 /emely/ NIURKA Yeung MD Signed Jan 03, 2022@10:28 Performing Laboratory: Surgical Pathology Report Performed By: CAREY MONTOYA [facility] [CLIA# [id number]] [address] [place] [address] $FTR - - - - - [...] - - LUCAS MEEK STANDARD FORM 515 ID:[id number] SEX:M :1950 AGE: 71 LOC: SDM END PCP: Isatu Todd /emely/ NIURKA MILLER Staff MD Signed: 01/03/2022 10:28 Dec 21, 2021 11:46 AM LR SURGICAL PATHOLOGY REPORT: STEFANY MILLER [facility] LOCAL TITLE: LR SURGICAL PATHOLOGY REPORT [facility] STANDARD TITLE: PATHOLOGY REPORT DATE OF NOTE: DEC 21, 2021@11:46:59 ENTRY DATE: DEC 21, 2021@11:46:59 AUTHOR: NIURKA MILLER EXP COSIGNER: URGENCY: STATUS: COMPLETED $APHDR Reporting Lab: [facility] [CLIA# [id number]] [address] [place] [address] - - - - - - [...] automatically d ocumented from SURGERY package case #[id number] Field (#32) PRINCIPAL PRE-OP DIAGNOSIS, (#.72) OTHER [...] automatically d ocumented from SURGERY package case #[id number] Field (#34) PRINCIPAL POST-OP DIAG, (#.74) OTHER [...] Label: Lucas Meek Paperwork: Lucas Meek Cassette: [id number];..;KALYANI;.;101;[id number] Specimen is labeled: ES bx Received in formalin are several pieces of pale boyd and brown tissue, 1.2 x 0.7 cm in aggregate. Submitted entirely in 1 cassette [id number];..;KALYANI;.;771;[id number] SAW 12/15/2021 Microscopic exam: DIAGNOSIS: A. 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 Kendell long. TIARA Coombs was notified on 12/21/21. The attending pathologist who signature mansoor ears on this report has reviewed all diagnostic slides and has edited t he gross and/or microscopic portion of this report in rendering the final pathologic diagnosis. [address] [address] CPT: 87907 /emely/ NIURKA Yeung MD Signed Dec 21, 2021@11:46 Performing Laboratory: Surgical Pathology Report Performed By: [facility] [CLIA# [id number]] [address] [place] [address] $FTR - - - - - [...] - - LUCAS MEEK STANDARD FORM 515 ID:[id number] SEX:M :1950 AGE: 71 LOC: [facility] END PCP: Isatu Todd /charmaine Yeung MD Signed: 12/21/2021 11:46 Dec 06, 2021 03:30 PM LR MICROBIOLOGY REPORT: [facility] Reporting Lab: [facility] [CLIA# [id number]] [address] [place] [address] Accession [UID]: [id number] [[id number]] Receiv ed: Dec 06, 2021@16:14 Collection sample: BLOOD CUL T BOTTLE(NIRMAL/AERO)Collection date: Dec 06, 2021 15:30 Site/Specimen: BLOOD Provider: JELANI SÁNCHEZ Comment on specimen: LAC Test(s) ordered: BLOOD CULTURE ANAEROBI C....... completed: Dec 12, 2021 06:18 * BACTERIOLOGY FINAL REPORT => Dec 12, 2021 06:1 8 TECH CODE: [id number] Bacteriology Remark(s): NO GROWTH IN 5 DAYS =--=--=--=--=--=--=--=--=--=--=--=--=--= --=--=--=--=--=--=--=--=--=--=--=--=-- Performing Laboratory: Bacteriology Report Performed By: [facility] [CLIA# [id number]] [address] [place] [address] Dec 06, 2021 03:30 PM LR MICROBIOLOGY REPORT: [facility] Reporting Lab: [facility] [CLIA# [id number]] [address] [place] [address] Accession [UID]: [id number] [[id number]] Receiv ed: Dec 06, 2021@16:14 Collection sample: BLOOD CUL T BOTTLE(NIRMAL/AERO)Collection date: Dec 06, 2021 15:30 Site/Specimen: BLOOD Provider: JELANI SÁNCHEZ Comment on specimen: LAC Test(s) ordered: BLOOD CULTURE AEROBIC. ........ completed: Dec 12, 2021 06:17 * BACTERIOLOGY FINAL REPORT => Dec 12, 2021 06:1 7 TECH CODE: [id number] Bacteriology Remark(s): NO GROWTH IN 5 DAYS =--=--=--=--=--=--=--=--=--=--=--=--=--= --=--=--=--=--=--=--=--=--=--=--=--=-- Performing Laboratory: Bacteriology Report Performed By: [facility] [CLIA# [id number]] [address] [place] [address] Encounter Notes: All associated encounter notes This section contains the clinical notes associated to the Encounter. Date/Time Encounter Note(s) Provider Source Dec 13, 2021 03:44 PM OTOLARYNGOLOGY CONSULT: QUINCY AL [facility] TITLE: CONSULT - ENT [facility] STANDARD TITLE: OTOLARYNGOLOGY CONSULT DATE OF NOTE: DEC 13, 2021@15:44 ENTRY DATE: DEC 13, 2021@15:44:07 AUTHOR: QUINCY AL EXP COSIGNER: URGENCY: STATUS: COMPLETED CC: aspiration HPI: ENT was asked to consult on inpatient, Mr. Lucas Meek, for flexible laryngoscopy. He was admitted on 12/06/21 for asp iration pneumonia. He admits to a 6-month history of abdo carlos pain after eating small to moderate. He states that the pain starts in his mid sternum and travels down to his abdomen. He has lost approximately 86 pounds in the last 6 months, as he is unable to eat normal portions of food. Otherwise, he has not had any dysphagia or odynophagia. He denies any pain in his throat. No otalgia, neck masses or dysphonia. He underwent a modified barium swallow last week, which revealed gross aspiration to liquids. Mr. Meek denies any sensation of d ysphagia or coughing after eating or drinking. PMH:Active problems - Computerized Problem List is the source for the followin. Former smoker 2. 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 Osteoarthritis 4. Psoriasis 5. Spinal stenosis of lumbar region 6. Low back pain 7. Joint pain 8. Primary malignant neoplasm of lung 9. Morbid obesity 10. Benign essential hypertension 11. Chronic obstructive lung disease PSH: No prior ENT surgeries FH: Brother-liver cancer, father-colon cancer SH: He is . He lives in [place], [place]. No current tobacco or alcohol use. He did smoke 1 and half to 2 pa cks/day for many years and drink 18 beers daily for many years. He quit both in 2016. Active Inpatient Medications (excluding Supplies ): Active [...] 13) SERTRALINE TAB 150MG PO QD ACTIVE PE: BP: 108/62 (12/13/2021 15:27) Pulse: 82 (12/13/2021 15:27) Temp: 97.9 F [36.6 C] (12/13/2021 15:27) Resp: 20 (12/13/2021 15:27) HT(in): 72 in [182.9 cm] (03/05/2019 11:48) WT(lbs):232.9 lb [105.64 kg] (12/13/2021 05:14) 12/13/21 @ 1527 PULSE OXIMETRY: 96 Gen : Alert and oriented. NAD. Head/Face: Normocephalic. No lesions or masses. Normal salivary glands- soft/symmetric/not enlarged. Ears: External ears, auditory canals no abnorma lity. Tympanic membranes translucent without abnormality. Hearing normal to voice Nose: External nose without deformity. Septum s lightly deviated left. No ulceration. Turbinates normal appearance, shrin k briskly with decongestants. No intranasal polyps, purulent d ischarge or bleeding. Oral Cavity: Oral mucosa moist without ulcerati ons, erythema, leukoplakia. Edentulous. Oropharynx: Palate of normal appearance and mob ility. Normal tongue, mucosa, and tonsils. Nasopharynx: see procedure note Hypopharynx: see procedure note Larynx: see procedure note Neck: Neck is supple. No adenopathy or masses n oted. Parotid and submandibular glands without masses. Thyroid sy mmetric to palpation; not enlarged. PROCEDURE NOTE - FLEXIBLE NASOLARYNGOSCOPY WITH VIDEO STROBOSCOPY Satisfactory view of the larynx could not be obt ained with a mirror exam. Patient was anesthetized with 4% lidocaine and 1 % neosynephrine spray. Flexible scope was passed through the right nare . Findings: normal nasopharynx- Adenoids atrophic, eustachia n tubes and choanae normal. Posterior nasal cavity not obstructed. cobblestoning noted in posterior pharynx normal epiglottis normal hypopharynx- Tongue base normal w ithout lesion. Pyriform fossae without obstruction pooling of secretions. normal supraglottis normal arytenoid towers larynx-Vocal folds of normal mobility and appear ance. Anterior and posterior glottis normal. Patient tolerated the procedure well, there were no complications. Scopes used in procedure: [id number] Olympus Rhino-Laryngo Videoscope ENF-VH A/P: Mr. Lucas Meek is a very pleasant 71-ye ar-old male seen for flexible laryngoscopy due to gross aspiration of liquids during a recent MBS. Cynthia Hernandez, FINAL INSPECTOR [employer], was present during the examinati on. There is no evidence of neoplasm of the larynx. Both vocal cords appear to be moving well without evidence of vocal cord paral ysis. Reassurance was provided. He is scheduled for an EGD tomorrow. ENT is happy to consult again a s needed. /emely/ QUINCY MENJIVAR Signed: 12/13/2021 15:47
--- OUTSIDE RECORDS SUMMARY | 2022-01-19 09:28 | XMS_ITS | Encounter Summary ---
:1950 Author Organization Department [facility] Address [address] [place] [phone] Support Name Relationship Address Phone YUSRA MEEK Unavailable [address] [place] [facility] [place] [address] YUSRA MEEK Unavailable [address] - [place] [facility] [place] [address] CLAY MOSLEY Unavailable Unavailable SJ SANTACRUZ Unavailable [...] MEDICARE MEDICARE PART Jun 18, PART A [id number] DO KALYANI PATIENT (WNR) (M) A 2016 13A 1 UGLAS MEDICARE MEDICARE PART Jun 18, PART B [id number] DO KALYANI PATIENT (WNR) (M) B 2016 13A 1 UGLAS MEDICARE MEDICARE PART Jun 18, PART A [id number] KALYANIDO PATIENT (WNR) (M) A 2017 VH81 2 UGLAS MEDICARE MEDICARE PART Jun 18, PART B [id number] DO KALYANI PATIENT (WNR) (M) B 2017 VH81 2 LAS UNITED MEDICARE MCR(Jun [id number] Luz MEEK PATIENT HEALTHCARE ADVANTAGE NR) 2021 37 0 [facility] (WNR) Selected Encounter This section includes the information on record at NE for the Encounter. Date/Time Encounter Type Encounter Description Reason Provider Source Jan 06, 2022 02:00 Outpatient Encounter SPEECH-LANGUAGE PM PATHOLOGY IHE Encounter Template Text not used by NE Plan of Treatment: Future Appointments (+ 6 months) and Future Tests (+/- 45 days) The Plan of Treatment section includes future care activities for the patient [facility] This section includes future appointments and future orders which are active, pending orscheduled.Future Appointments This section includes appointments that were scheduled to occur 6 months from the date of the Encounter, up to a maximum of 20 appointments. The data comes from all NE treatment [facility]. Appointment Date/Time Appointment Type Appointment Facili ty Name Jan 10, 2022 11:30 AM [facility]ORY [facility] Jan 24, 2022 08:00 AM [place] [facility] Feb 21, 2022 10:00 AM AMBULATORY - [place] [facility] Mar 21, 2022 10:30 AM [...] The data comes from all NE treatment [facility]. Test Date/Time Test Type Test Details Facility Name Dec 06, 2021 12:52 PM Pharmacy [place] In[place] Order [facility] Dec 06, 2021 03:24 PM Pharmacy [place] [facility] Dec 06, 2021 03:40 PM Pharmacy - [place] [facility] Dec 15, 2021 08:41 AM Consult Order SPEECH PATHOLOGY [place] OUTPATIENT Cons [facility] Jan 15, 2022 10:08 PM Consult Order [facility] CARE-PALLIATIVE CARE Cons [facility] Lab Results: +/- 30 days of the encounter This section includes the Chemistry and Hematology Lab Results on record with NE for the patient. Radiology Reports and Pathology Reports are provided separately, in subsequent sections.Lab Results This section contains the Chemistry/Hematology Results that were resulted 30 days before or 30 daysafter the date of the Encounter. Date/Time Source Result Type Result - Unit Interpretation Reference Range Comment Dec 15, 2021 [facility] P4 GLU,BUN,CREAT,LYTES,CA Speci men Type: PLASMA 06:43 AM [facility] Comment: Tests performed on [employer] (405) SN:[id number] Ordering Provid er: SIATU TODD Report Released Date/Time: Dec 11, 2021 07:42 AM Reporting Lab: [facility] [address] [facility] [address] Performing Lab: [facility] [address] [facility] [address] UREA NITROGEN 9 7-25 SODIUM 137 135-145 POTASSIUM 3.8 3.5-5.0 CHLORIDE 105 100-110 CARBON DIOXIDE 26 20-30 ANION GAP 6 4-16 GLUCOSE 102 H 65-100 CREATININE 0.64 0.5-1.5 CALCIUM 8.1 L 8.5-10.5 eGFR(CKD-EPI 2020) >90.0 >60 Dec 15, 2021 06:43 AM [facility] CBC PROFILE Sp ecimen Type: BLOOD No comment enter ed. Ordering Provid er: ISATU TODD Report Released Date/Time: Dec 10, 2021 07:22 AM Reporting Lab: [facility] [address] [facility] [address] Performing Lab: [facility] [address] [facility] [address] WBC 5.7 4.5-11.0 RBC 4.22 L 4.23-5.66 [...] [place] CYTOGENETIC Specimen Type: ESOPHAGUS 02:59 PM [facility] FISH([facility]) Comment: ~For T est: CYTOGENETIC FISH([facility]) ~FISH HER 2 NUE, FFPE See full report in bright box Image display viewer/tab#LAB-Reference Ordering Provid er: NIURKA MILLER Report Released Date/Time: Dec 21, 2021 12:11 PM Reporting Lab: [facility] [address] [facility] [address] Performing Lab: [facility] CYTOGENETIC FISH([facility]) comment Dec 14, 2021 [facility] P4 GLU,BUN,CREAT,LYTES,CA Speci men Type: PLASMA 06:27 AM [facility] Comment: Tests performed on [employer] (405) SN:[id number] Ordering Provid er: ISATU TODD Report Released Date/Time: Dec 11, 2021 07:42 AM Reporting Lab: [facility] [address] [facility] [address] Performing Lab: [facility] [address] [facility] [address] UREA NITROGEN 10 7-25 SODIUM 137 135-145 POTASSIUM 4.0 3.5-5.0 CHLORIDE 104 100-110 CARBON DIOXIDE 25 20-30 ANION GAP 8 4-16 GLUCOSE 99 65-100 CREATININE 0.67 0.5-1.5 CALCIUM 8.2 L 8.5-10.5 eGFR(CKD-EPI 2020) >90.0 >60 Dec 14, 2021 06:27 AM [facility] CBC PROFILE Sp ecimen Type: BLOOD No comment enter ed. Ordering Provid er: ISATU TODD Report Released Date/Time: Dec 10, 2021 07:22 AM Reporting Lab: [facility] [address] [facility] [address] Performing Lab: [facility] [address] [facility] [address] WBC 6.0 4.5-11.0 RBC 4.29 4.23-5.66 HGB [...] [facility] Comment: Tests performed on [employer] (405) SN:[id number] Ordering Provid er: ISATU TODD Report Released Date/Time: Dec 11, 2021 07:42 AM Reporting Lab: [facility] [address] [facility] [address] Performing Lab: [facility] [address] [facility] [address] UREA NITROGEN 12 7-25 SODIUM 136 135-145 [...] [facility] [address] [facility] [address] Performing Lab: [facility] [address] [facility] [address] WBC 5.6 4.5-11.0 RBC 4.28 4.23-5.66 HGB [...] [facility] Comment: Tests performed on [employer] (405) SN:[id number] Ordering Provi nik: ISATU TODD Report Released Date/Time: Dec 11, 2021 07:42 AM Reporting Lab: [facility] [address] [facility] [address] Performing Lab: [facility] [address] [facility] [address] UREA NITROGEN 11 7-25 SODIUM 139 135-145 [...] [facility] [address] [facility] [address] Performing Lab: [facility] [address] [facility] [address] WBC 5.5 4.5-11.0 RBC 4.37 4.23-5.66 HGB [...] Type: PLASMA Comment: Testin g Performed on [employer] (405) SN:[id number] Ordering Provid er: ISATU TODD Report Released Date/Time: Dec 12, 2021 08:24 AM Reporting Lab: [place] [facility] [address] [facility] [address] Performing Lab: [place] [facility] [address] [facility] [address] MAGNESIUM 1.8 1.6-2.6 Dec 12, 2021 06:00 AM [place] [facility] PHOSPHORUS Sp ecimen Type: PLASMA Comment: Testin g Performed on [employer] (405) SN:[id number] Ordering Provid er: ISATU TODD Report Released Date/Time: Dec 12, 2021 08:24 AM Reporting Lab: [place] [facility] [address] [facility] [address] Performing Lab: [place] [facility] [address] [facility] [address] PHOSPHORUS 3.1 2.5-5.0 Dec 11, 2021 06:15 AM [place] [facility] ELECTROLYTES Sp ecimen Type: PLASMA Comment: Tests performed on [employer] (405) SN:[id number] Ordering Provid er: ISATU TODD Report Released Date/Time: Dec 10, 2021 07:22 AM Reporting Lab: [place] [facility] [address] [facility] [address] Performing Lab: [place] [facility] [address] [facility] [address] SODIUM 137 135-145 POTASSIUM 4.3 3.5-5.0 CHLORIDE 108 100-110 CARBON DIOXIDE 20 20-30 ANION GAP 9 4-16 Dec 11, 2021 06:15 AM [place] [facility] CBC PROFILE Sp ecimen Type: BLOOD Comment: Result s checked Ordering Provid er: ISATU TODD Report Released Date/Time: Dec 10, 2021 07:22 AM Reporting Lab: [place] [facility] [address] [facility] [address] Performing Lab: [place] [facility] [address] [facility] [address] WBC 5.8 4.5-11.0 RBC 4.37 4.23-5.66 HGB [...] ecimen Type: PLASMA Comment: Tests performed on [employer] (405) SN:[id number] Results checked Ordering Provid er: ISATU TODD Report Released Date/Time: Dec 11, 2021 07:44 AM Reporting Lab: [facility] [address] [facility] [address] Performing Lab: [facility] [address] [facility] [address] PHOSPHORUS 3.0 2.5-5.0 Dec 10, 2021 08:05 AM [facility] MAGNESIUM Sp ecimen Type: PLASMA Comment: [place] [id number] on Dec 10, 2021@08:31 Tests performed on [employer] (405) SN:[id number] Ordering Provid er: ISATU TODD Report Released Date/Time: Dec 10, 2021 07:22 AM Reporting Lab: [facility] [address] [place] [address] Performing Lab: [place] [facility] [address] [place] [facility] [place] [address] MAGNESIUM 1.7 1.6-2.6 Dec 10, 2021 08:05 AM [place] [facility] PHOSPHORUS Sp ecimen Type: PLASMA Comment: [place] [id number] on Dec 10, 2021@08:31 Tests performed on [employer] (405) SN:[id number] Ordering Provid er: IASTU TODD Report Released Date/Time: Dec 10, 2021 07:22 AM Reporting Lab: [place] [facility] [address] [place] [facility] [place] [address] Performing Lab: [place] [facility] [address] [facility] [address] PHOSPHORUS 1.8 L 2.5-5.0 Dec 10, 2021 08:05 AM [place] UREA NITROGEN Specimen Type: PLASMA [facility] Comment: [place] [id number] on Dec 10, 2021@08:31 Tests performed on [employer] (405) SN:[id number] Ordering Provid er: ISAUT TODD Report Released Date/Time: Dec 10, 2021 07:22 AM Reporting Lab: [place] [facility] [address] [place] [facility] [place] [address] Performing Lab: [place] [facility] [address] [place] [facility] [place] [address] UREA NITROGEN 8 7-25 Dec 10, 2021 08:05 AM [place] [facility] GLUCOSE Sp ecimen Type: PLASMA Comment: [place] [id number] on Dec 10, 2021@08:31 Tests performed on [employer] (405) SN:[id number] Ordering Provid er: ISATU TODD Report Released Date/Time: Dec 10, 2021 07:22 AM Reporting Lab: [place] [facility] [address] [place] [facility] [place] [address] Performing Lab: [place] [facility] [address] [place] [facility] [place] [address] GLUCOSE 144 H 65-100 Dec 10, 2021 08:05 AM [place] [facility] CALCIUM Sp ecimen Type: PLASMA Comment: [place] [id number] on Dec 10, 2021@08:31 Tests performed on [employer] (405) SN:[id number] Ordering Provid er: ISATU TODD Report Released Date/Time: Dec 10, 2021 07:22 AM Reporting Lab: [place] [facility] [address] [facility] [address] Performing Lab: [place] [facility] [address] [facility] [address] CALCIUM 8.3 L 8.5-10.5 Dec 10, 2021 08:05 AM [place] [facility] ELECTROLYTES Sp ecimen Type: PLASMA Comment: [place] [id number] on Dec 10, 2021@08:31 Tests performed on [employer] (405) SN:[id number] Ordering Provid er: ISATU TODD Report Released Date/Time: Dec 10, 2021 07:22 AM Reporting Lab: [place] [facility] [address] [facility] [address] Performing Lab: [place] [facility] [address] [facility] [address] SODIUM 139 135-145 POTASSIUM 3.7 3.5-5.0 CHLORIDE 107 100-110 CARBON DIOXIDE 24 20-30 ANION GAP 8 4-16 Dec 10, 2021 08:05 [place] CREATININE WITH eGFR Specime n Type: PLASMA AM [facility] PANEL Comment: [place] [id number] on Dec 10, 2021@08:31 Tests performed on [employer] (405) SN:[id number] Ordering Provid er: ISATU TODD Report Released Date/Time: Dec 10, 2021 07:22 AM Reporting Lab: [place] [facility] [address] [facility] [address] Performing Lab: [place] [facility] [address] [facility] [address] CREATININE 0.78 0.5-1.5 eGFR(CKD-EPI 2020) >90.0 >60 Dec 10, 2021 08:05 AM [place] [facility] CBC PROFILE Sp ecimen Type: BLOOD No comment enter ed. Ordering Provid er: ISATU TODD Report Released Date/Time: Dec 10, 2021 07:22 AM Reporting Lab: [place] [facility] [address] [facility] [address] Performing Lab: [place] [facility] [address] [facility] [address] WBC 7.0 4.5-11.0 RBC 4.54 4.23-5.66 HGB [...] 0.00 0-0 Dec 09, 2021 06:46 AM [facility] MAGNESIUM Sp ecimen Type: PLASMA Comment: Tests performed on [employer] (405) SN:[id number] Ordering Provid er: ISATU TODD Report Released Date/Time: Dec 08, 2021 10:23 AM Reporting Lab: [facility] [address] [facility] [address] Performing Lab: [facility] [address] [facility] [address] MAGNESIUM 1.6 1.6-2.6 Dec 09, 2021 [facility] P4 GLU,BUN,CREAT,LYTES,CA Speci men Type: PLASMA 06:46 AM [facility] Comment: Tests performed on [employer] (405) SN:[id number] Ordering Provid er: ISATU TODD Report Released Date/Time: Dec 08, 2021 05:00 PM Reporting Lab: [place] [facility] [address] [facility] [address] Performing Lab: [facility] [address] [facility] [address] UREA NITROGEN 6 L 7-25 SODIUM 134 [...] [facility] [address] [facility] [address] Performing Lab: [facility] [address] [facility] [address] WBC 7.1 4.5-11.0 RBC 4.40 4.23-5.66 HGB [...] 0.00 0-0 Dec 08, 2021 06:39 AM [facility] MAGNESIUM Sp ecimen Type: PLASMA Comment: Testin g Performed on [employer] (405) SN:[id number] Ordering Provid er: ISATU TODD Report Released Date/Time: Dec 07, 2021 10:32 AM Reporting Lab: [facility] [address] [facility] [address] Performing Lab: [place] [facility] [address] [facility] [address] MAGNESIUM 1.5 L 1.6-2.6 Dec 08, 2021 [place] P4 GLU,BUN,CREAT,LYTES,CA Speci men Type: PLASMA 06:39 AM [facility] Comment: Testin g Performed on [employer] (405) SN:[id number] Ordering Provid er: ISATU TODD Report Released Date/Time: Dec 07, 2021 10:32 AM Reporting Lab: [facility] [address] [facility] [address] Performing Lab: [facility] [address] [facility] [address] UREA NITROGEN 6 L 7-25 SODIUM 136 135-145 POTASSIUM 3.3 L 3.5-5.0 CHLORIDE 104 100-110 CARBON DIOXIDE 22 20-30 ANION GAP 10 4-16 GLUCOSE 133 H 65-100 CREATININE 0.76 0.5-1.5 CALCIUM 8.4 L 8.5-10.5 eGFR(CKD-EPI 2020) >90.0 >60 Dec 08, 2021 06:39 AM [place] [facility] CBC PROFILE Sp ecimen Type: BLOOD No comment enter ed. Ordering Provid er: ISATU TODD Report Released Date/Time: Dec 07, 2021 10:32 AM Reporting Lab: [facility] [address] [facility] [address] Performing Lab: [place] [facility] [address] [facility] [address] WBC 8.4 4.5-11.0 RBC 4.75 4.23-5.66 HGB [...] GRANULOCYTES 7.5 2.2-7.6 ABSOLUTE NRBC 0.00 0-0 Social History: [...] took place. Date/Time Current Smoking Status Comment [facility] Dec 06, 2021 11:40 AM QUIT TOBACCO USE > 7 YEARS AGO [facility] Tobacco Use History This section includes a history of the smoking, or tobacco- related health factors, that were collected on or before the date of the Encounter. The data comes from the NE facility where the Encounter took place. Date/Time Smoking Status/Tobacco Use Comment [facility] Apr 01, 2020 01:16 PM QUIT [...] AM QUIT TOBACCO USE 1-7 YEARS AGO [facility] May 25, 2016 11:53 PM QUIT TOBACCO USE IN PAST YEAR [facility] May 23, 2016 06:57 PM QUIT TOBACCO USE > 7 YEARS AGO [facility] May 19, 2016 03:55 PM QUIT TOBACCO USE IN PAST YEAR [facility] May 19, 2016 10:29 AM QUIT TOBACCO USE 1-7 YEARS AGO [facility] May 01, 2016 07:26 PM QUIT TOBACCO USE IN PAST YEAR [facility] May 01, 2016 03:11 PM QUIT TOBACCO USE IN PAST YEAR [facility] May 01, 2016 11:19 AM QUIT TOBACCO USE IN PAST YEAR [facility] Mar 16, 2016 12:50 PM V1-PT DECLINES REF TO TOBACCO [facility] CESS PRGM Mar 16, 2016 12:50 PM V1-PT THINKING ABOUT QUIT [facility] TOBACCO USE Aug 12, 2015 08:48 AM CURRENT SMOKER [facility] Radiology Reports: +/- 30 days of [...] MRI ABDOMEN W/WO CONTRAST: MARYELLEN LONG [place] KALYANILUCAS N [id number] -1950 [facility] Exm Date: DEC 13, 2021@12:57 Req Phys: ISATU TODD Loc: OP Unknown/0 12-15-2021@13:20 Img Loc: MRI IMAGING (OOS) Service: ZGENERAL MEDICINE (Case [id number] COMPLETE) MRI ABDOMEN W/WO CONTRAST (M RI Detailed) CPT:84392 Reason for Study: further characterization of a [...] new lyphadenopathy REQUESTING MD: Isatu Todd PAGER: [phone] PHONE: [phone] Weight: 232.2 lb [105.32 kg] (12/12/2021 05:00) [...] patient will need to arrange for a trailer 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 to take him/her home after [...] 15, 2021 Date Verified: DEC 15, 2021 [employer] E-Sig:/ES/MARYELLEN LONG Report: MRI ABDOMEN W/WO CONTRAST [...] MALIGNANCY Primary Interpreting Staff: Staff AMELIA THOMAS ([employer]ounty [employer]) / Dec 10, 2021 09:[address] ABDOMEN & PELVIS: [facility] N [id number] -1950 SERVICE [facility] Ex Date: DEC 10, 2021@09:30 Req Phys: ISATU TODD E Josseline Loc: 1S MED/12-10@10:57 Img Loc: CT SCAN (OOS) Service: [facility] (Case [id number] COMPLETE) CT ABD & PELVIS WITHOUT CONT RAST (CT Detailed) CPT:46742 Reason for Study: 71 yo male with [...] INDEX - NO HEIGHTS FOUND Pager number: [phone] STAT orders MUST be call ed to RADIOLOGY [phone] to speak to the appropriate agriculture technician. Report Status: Verified Date Reported: DEC 10, 2021 Date Verified: DEC 10, 2021 [employer] E-Sig: Report: EXAM: CT abdomen and pelvis [...] ph nodes. READING PHYSICIAN: Ramone Munoz D.O. [phone] 12/10/2021 10:55 EDT [facility] Skinny Mom [phone] (For Medical Practitioner Use Only ) [address] [facility], [facility] [address], [address] [place] [address] Attention Patients / Veterans: If you have ques tions or concerns about these test results, please contact your o rdering provider or primary care team. Primary Diagnostic Code: SIGNIFICANT ABNORMALIT Y, ATTN NEEDED Primary Interpreting Staff: RADIOLOGY,OUTSIDE SERVICE, Staff Physician / Dec 09, 2021 07:34 AM BASW (MODIFIED): [facility]Y [facility] N [id number] -1950 M [facility] Exm Date: DEC 09, 2021@07:34 Req Phys: ISATU TODD Loc: 1S MED/12-09@11:26 Img Loc: XRAY (OOS) Service: [facility] MEDICINE (Case [id number] COMPLETE) BASW (MODIFIED) (EUNICE stephenson) CPT:78352 Contrast Media : Barium Reason for Study: dysphagia ?esophageal spasm Clinical History: Report Status: Verified Date Reported: DEC 09, 2021 Date Verified: DEC 09, 2021 [employer] E-Sig:/ES/JESSIE CHENEY Report: BASW (MODIFIED) , 12/09/2021 [...] REQUIRED Primary Interpreting Staff: JESSIE CHENEY, RADIOLOGIST ([employer]) /AC Pathology Reports: +/- 30 days of [...] [place] LOCAL TITLE: LR SURGICAL PATHOLOGY REPORT [facility] STANDARD TITLE: PATHOLOGY REPORT DATE OF NOTE: JAN 03, 2022@10:28:01 ENTRY DATE: JAN 03, 2022@10:28:01 AUTHOR: NIURKA MILLER COSIGNER: URGENCY: STATUS: COMPLETED $APHDR Reporting Lab: [facility] [CLIA# [id number]] [address] [place] [address] - - - - - - [...] automatically d ocumented from SURGERY package case #[id number] Field (#32) PRINCIPAL PRE-OP DIAGNOSIS, (#.72) OTHER [...] automatically d ocumented from SURGERY package case #[id number] Field (#34) PRINCIPAL POST-OP DIAG, (#.74) OTHER [...] GROSS DESCRIPTION: Name Label: Lucas Meek Paperwork: MeekLucas Lei Cassette: [id number];..;KALYANI;.;405;[phone] Specimen is labeled: ES bx Received in formalin are several pieces of pale boyd and brown tissue, 1.2 x 0.7 cm in aggregate. Submitted entirely in 1 cassette [id number];..;KALYANI;.;405;[id number] SAW 12/15/2021 Microscopic exam: *+* MODIFIED REPORT [...] the final pathologic diagnosis. [address] [address] CPT: 43493 /emely/ NIURKA Yeung MD Signed Jan 03, 2022@10:28 Performing Laboratory: Surgical Pathology Report Performed By: [facility] [CLIA# [id number]] [address] [place] [phone] $FTR - - - - - [...] - - LUCAS MEEK STANDARD FORM 515 ID:[id number] SEX:M :1950 AGE: 71 LOC: SDM END PCP: Isatu Todd /charmaine Yeung MD Signed: 01/03/2022 10:28 Dec 21, 2021 11:46 AM LR SURGICAL PATHOLOGY REPORT: STEFANY MILLER [facility] LOCAL TITLE: LR SURGICAL PATHOLOGY REPORT [facility] STANDARD TITLE: PATHOLOGY REPORT DATE OF NOTE: DEC 21, 2021@11:46:59 ENTRY DATE: DEC 21, 2021@11:46:59 AUTHOR: NIURKA MILLER EXP COSIGNER: URGENCY: STATUS: COMPLETED $APHDR Reporting Lab: [facility] [CLIA# [id number]] [address] [place] [facility] [place] [address] - - - - - - [...] automatically d ocumented from SURGERY package case #[id number] Field (#32) PRINCIPAL PRE-OP DIAGNOSIS, (#.72) OTHER [...] automatically d ocumented from SURGERY package case #[id number] Field (#34) PRINCIPAL POST-OP DIAG, (#.74) OTHER [...] Label: Lucas Meek Paperwork: Lucas Meek Cassette: [id number];..;KALYANI;.;763;[id number] Specimen is labeled: ES bx Received in formalin are several pieces of pale boyd and brown tissue, 1.2 x 0.7 cm in aggregate. Submitted entirely in 1 cassette [id number];..;KALYANI;.;405;[id number] SAW 12/15/2021 Microscopic exam: DIAGNOSIS: A. 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 Kendell long. TIARA Coombs was notified on 12/21/21. The attending pathologist who signature mansoor ears on this report has reviewed all diagnostic slides and has edited t he gross and/or microscopic portion of this report in rendering the final pathologic diagnosis. [address] [place] [address] CPT: 36393 /emely/ NIURKA Yeung MD Signed Dec 21, 2021@11:46 Performing Laboratory: Surgical Pathology Report Performed By: [facility] [CLIA# [id number]] [address] [place] [address] $FTR - - - - - [...] - - LUCAS MEEK STANDARD FORM 515 ID:[id number] SEX:M :1950 AGE: 71 LOC: SDM END PCP: Isatu Todd /emely/ NIURKA Yeung MD Signed: 12/21/2021 11:46
--- OUTSIDE RECORDS SUMMARY | 2022-01-19 09:28 | XMS_ITS | Encounter Summary ---
:1950 Author Organization [facility] rs Address [address] [place] [address] Support Name Relationship Address Phone YUSRA AUGUSTE Unavailable [address] [place] [address] YUSRA AUGUSTE Unavailable [address] [place] [address] CLAY MOSLEY Unavailable Unavailable SJ SANTACRUZ Unavailable [...] MEDICARE MEDICARE PART Jun 18, PART A [id number] DO KALYANI PATIENT (WNR) (M) A 2016 13A 1 UGLAS MEDICARE MEDICARE PART Jun 18, PART A [id number] DO KALYANI PATIENT (WNR) (M) A 2017 VH81 2 UGLAS MEDICARE MEDICARE PART Jun 18, PART B [id number] DO KALYANI PATIENT (WNR) (M) B 2016 13A 1 UGLAS MEDICARE MEDICARE PART Jun 18, PART B [id number] DO KALYANI PATIENT (WNR) (M) B 2017 VH81 2 LAS UNITED MEDICARE MCR(W Jun 18 [id number] Luz AUGUSTE PATIENT HEALTHCARE ADVANTAGE NR) 2021 37 0 [facility] (WNR) Selected Encounter This section includes the information on record at [place] for the Encounter. Date/Time Encounter Type Encounter Description Reason Provider Source IHE Encounter Template Text not used by [facility]
--- OUTSIDE RECORDS SUMMARY | 2022-01-19 09:29 | XMS_ITS | Encounter Summary ---
:1950 Author Organization [facility] Address [address] [place] [address] Support Name Relationship Address Phone YUSRA MEEK Unavailable [address] [place] [facility] [place] [address] YUSRA MEEK Unavailable [address] [place] [facility] [place] [address] CLAY MOSLEY Unavailable Unavailable SJ SANTACRUZ Unavailable [...] MEDICARE MEDICARE PART Jun 18, PART A [id number] MEEK DO PATIENT (WNR) (M) A 2016 13A 1 UGLAS MEDICARE MEDICARE PART Jun 18, PART B [id number] MEEK DO PATIENT (WNR) (M) B 2016 13A 1 UGLAS MEDICARE MEDICARE PART Jun 18, PART A [id number] KALYANIDO PATIENT (WNR) (M) A 2017 VH81 2 UGLAS MEDICARE MEDICARE PART Jun 18, PART B [id number] KALYANIDO PATIENT (WNR) (M) B 2017 VH81 2 LAS UNITED MEDICARE MCR(Jun 18 [id number] Luz MEEK PATIENT HEALTHCARE ADVANTAGE NR) 2021 37 0 [facility] (WNR) Selected Encounter This section includes the information on record at [place] for the Encounter. Date/Time Encounter Type Encounter Description Reason Provider Source Jan 15, 2022 12:00 Outpatient Encounter EVENT (HISTORICAL) AM IHE [...] Appointment Type Appointment Facili ty Name Jan 24, 2022 08:00 AM [place] [facility] Feb 21, 2022 10:00 AM AM[place]ORY [place] [facility] Mar 21, 2022 10:30 AM AMBULATORY [...] The data comes from all [place] treatment [facility]. Test Date/Time Test Type [...] [place] OUTPATIENT Cons [facility] [employer] Jan 15, 2022 10:08 PM Consult Order [facility]-PALL[facility]ATIVE CARE Cons [employer] Social History: Smoking Status (Most current) [...] TOBACCO USE 1-7 YEARS AGO CAREY DOYLE [facility] Mar 24, 2020 03:00 PM QUIT TOBACCO [...] SMOKER CAREY Yates [facility] Pathology Reports: +/- 30 days of the [...] SURGICAL PATHOLOGY REPORT: STEFANY MILLER CAREY DOYLE [facility] LOCAL TITLE: LR SURGICAL PATHOLOGY REPORT [facility] STANDARD TITLE: PATHOLOGY REPORT DATE OF NOTE: JAN 03, 2022@10:28:01 ENTRY DATE: JAN 03, 2022@10:28:01 AUTHOR: NIURKA MILLER EXP COSIGNER: URGENCY: STATUS: COMPLETED $APHDR Reporting Lab: CAREY DOYLE [facility] [CLIA# [id number]] [address] [place] [address] - - - - - - [...] automatically d ocumented from SURGERY package case #[id number] Field (#32) PRINCIPAL PRE-OP DIAGNOSIS, (#.72) OTHER [...] automatically d ocumented from SURGERY package case #[id number] Field (#34) PRINCIPAL POST-OP DIAG, (#.74) OTHER [...] Label: Lucas Meek Paperwork: Lucas Meek Cassette: [id number];..;KALYANI;.;405;[id number] Specimen is labeled: ES bx Received in formalin are several pieces of pale boyd and brown tissue, 1.2 x 0.7 cm in aggregate. Submitted entirely in 1 cassette [id number];..;KALYANI;.;405;[id number] SAW 12/15/2021 Microscopic exam: *+* MODIFIED REPORT *+* (Last modified: JAN 03, 2022@09:30:20 typed by JULI WADDELL DIAGNOSIS: A. Esophagus biopsies: Poorly differentiated adenocarcinoma [...] in rendering the final pathologic diagnosis. [address] [address] CPT: 92693 /emely/ NIURKA Yeung MD Signed Jan 03, 2022@10:28 Performing Laboratory: Surgical Pathology Report Performed By: CAREY DOYLE [facility] [CLIA# [id number]] [address] [place] [address] $FTR - - - - - [...] - - LUCAS MEEK STANDARD FORM 515 ID:[id number] SEX:M :1950 AGE: 71 LOC: SDM END PCP: Isatu Todd /charmaine Yeung MD Signed: 01/03/2022 10:28 Dec 21, 2021 11:46 AM LR SURGICAL PATHOLOGY REPORT: STEFANY MILLER [facility] LOCAL TITLE: LR SURGICAL PATHOLOGY REPORT [facility] STANDARD TITLE: PATHOLOGY REPORT DATE OF NOTE: DEC 21, 2021@11:46:59 ENTRY DATE: DEC 21, 2021@11:46:59 AUTHOR: NIURKA MILLER EXP COSIGNER: URGENCY: STATUS: COMPLETED $APHDR Reporting Lab: [facility] [CLIA# [id number]] [address] [place] [address] - - - - - - [...] automatically d ocumented from SURGERY package case #[id number] Field (#32) PRINCIPAL PRE-OP DIAGNOSIS, (#.72) OTHER [...] automatically d ocumented from SURGERY package case #[id number] Field (#34) PRINCIPAL POST-OP DIAG, (#.74) OTHER [...] Label: Lucas Meek Paperwork: Lucas Meek Cassette: [id number];..;KALYANI;.;405;[phone] Specimen is labeled: ES bx Received in formalin are several pieces of pale boyd and brown tissue, 1.2 x 0.7 cm in aggregate. Submitted entirely in 1 cassette [id number];..;KALYANI;.;405;[id number] SAW 12/15/2021 Microscopic exam: DIAGNOSIS: A. 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 Kendell long. TIARA Coombs was notified on 12/21/21. The attending pathologist who signature mansoor ears on this report has reviewed all diagnostic slides and has edited t he gross and/or microscopic portion of this report in rendering the final pathologic diagnosis. [address] [address] CPT: 95632 /emely/ NIURKA Yeung MD Signed Dec 21, 2021@11:46 Performing Laboratory: Surgical Pathology Report Performed By: CAREY MONTOYA [facility] [CLIA# [id number]] [address] [place] [address] $FTR - - - - - [...] - - LUCAS MEEK STANDARD FORM 515 ID:[id number] SEX:M :1950 AGE: 71 LOC: SDM END PCP: Isatu Todd /emely/ NIURKA Yeung MD Signed: 12/21/2021 11:46
--- OUTSIDE RECORDS SUMMARY | 2022-01-19 09:29 | XMS_ITS | Encounter Summary ---
:1950 Author Organization [facility] Address [address] [place] [address] Support Name Relationship Address Phone YUSRA MEEK Unavailable [address] [place] [address] YUSRA MEEK Unavailable [address] [place] [address] CLAY MOSLEY Unavailable Unavailable SJ SANTACRUZ Unavailable [...] MEDICARE MEDICARE PART Jun 18, PART A [id number] DO KALYANI PATIENT (WNR) (M) A 2016 13A 1 UGLAS MEDICARE MEDICARE PART Jun 18, PART B [id number] DO KALYANI PATIENT (WNR) (M) B 2016 13A 1 LAS MEDICARE MEDICARE PART Jun 18, PART A [id number] DO KALYANI PATIENT (WNR) (M) A 2017 VH81 2 LAS MEDICARE MEDICARE PART Jun 18, PART B [id number] DO KALYANI PATIENT (WNR) (M) B 2017 VH81 2 UGLAS UNITED MEDICARE MCR(Jun [id number] Luz MEEK PATIENT HEALTHCARE ADVANTAGE NR) 2021 37 0 [facility] (WNR) Selected Encounter This section includes the information on record at [place] for the Encounter. Date/Time Encounter Type Encounter Description Reason Provider Source Jan 11, 2022 09:11 Outpatient Encounter DERMATOLOGY AM IHE Encounter Template [...] - [place] [facility] Feb 21, 2022 10:00 AM [facility] [place] [facility] Mar 21, 2022 10:30 AM AMBULATORY [...] The data comes from all [place] treatment [facility]. Test Date/Time Test Type Test Details Facility Name Dec 06, 2021 12:52 PM Pharmacy [place] Infusion Order [facility] Dec 06, 2021 03:24 PM Pharmacy - [place] Order [facility] Dec 06, 2021 03:40 PM Pharmacy - [place] Order [facility] Dec 15, 2021 08:41 AM Consult Order SPEECH PATHOLOGY [place] OUTPATIENT Cons [facility] [employer] Jan 15, 2022 10:08 PM Consult Order [facility] CARE-PALLIATIVE CARE Cons [employer] Lab Results: +/- 30 days of [...] GLU,BUN,CREAT,LYTES,CA Speci men Type: PLASMA 06:43 AM [facility] Comment: Tests performed on Simtrol (405) SN:[id number] Ordering Provid er: ISATU TODD Report Released Date/Time: Dec 11, 2021 07:42 AM Reporting Lab: [facility] [address] [facility] [address] Performing Lab: [facility] [address] [facility] [address] UREA NITROGEN 9 7-25 SODIUM 137 135-145 [...] 07:22 AM Reporting Lab: [facility] [address] [facility] [address] [facility]: [facility] [address] [facility] [address] WBC 5.7 4.5-11.0 RBC 4.22 L 4.23-5.66 [...] NRBC 0.00 0-0 Dec 14, 2021 CAREY DOYLE [facility] CYTOGENETIC Specimen Type: ESOPHAGUS 02:59 PM [facility] FISH([facility]) Comment: ~For T est: CYTOGENETIC FISH([facility]) ~FISH HER 2 NUE, FFPE See full report in [employer] Image display viewer/tab#LAB-Reference Ordering Provid er: NIURKA MILLER Report Released Date/Time: Dec 21, 2021 12:11 PM Reporting [facility]: [facility] [address] [facility] [address] Performing Lab: [facility] CYTOGENETIC FISH([facility]) comment Dec 14, 2021 [facility] P[facility] GLU,BUN,CREAT,LYTES,CA Speci men Type: PLASMA 06:27 AM [facility] Comment: Tests performed on Simtrol (405) SN:[id number] Ordering Provid er: ISATU TODD Report Released Date/Time: Dec 11, 2021 07:42 AM Reporting Lab: [facility] [address] [facility] [address] Performing Lab: [facility] [address] [facility] [address] UREA NITROGEN 10 7-25 SODIUM 137 135-145 POTASSIUM 4.0 3.5-5.0 CHLORIDE 104 100-110 CARBON DIOXIDE 25 20-30 ANION GAP 8 4-16 GLUCOSE 99 65-100 CREATININE 0.67 0.5-1.5 CALCIUM 8.2 L 8.5-10.5 eGFR(CKD-EPI 2020) >90.0 >60 Dec 14, 2021 06:27 AM [facility] CBC PROFILE Sp ecimen Type: BLOOD No comment enter ed. Ordering Provid er: ISATU TODD Report Released Date/Time: Dec 10, 2021 07:22 AM Reporting Lab: [facility] [address] [facility] [address] Performing Lab: [facility] [address] [facility] [facility] [address] WBC 6.0 4.5-11.0 RBC 4.29 4.23-5.66 HGB [...] 0.00 0-0 Dec 13, 2021 06:34 AM [facility] CBC PROFILE Sp ecimen Type: BLOOD No comment enter ed. Ordering Provid er: ISATU TODD Report Released Date/Time: Dec 10, 2021 07:22 AM Reporting Lab: [facility] [address] [facility] [address] Performing Lab: [facility] [address] [facility] [facility] [address] WBC 5.6 4.5-11.0 RBC 4.28 4.23-5.66 HGB [...] 0.00 0-0 Dec 13, 2021 [facility]AREY DOYLE [facility] P4 GLU,BUN,CREAT,LYTES,CA Speci men Type: PLASMA 06:34 AM [facility] Comment: Tests performed on Simtrol (405) SN:[id number] Ordering Provid er: ISATU TODD Report Released Date/Time: Dec 11, 2021 07:42 AM Reporting Lab: [facility] [address] [facility] [facility] [address] Performing Lab: [facility] [address] [facility] [address] UREA NITROGEN 12 7-25 SODIUM 136 135-145 POTASSIUM 3.9 3.5-5.0 CHLORIDE 105 100-110 CARBON DIOXIDE 24 20-30 ANION GAP 7 4-16 GLUCOSE 102 H 65-100 CREATININE 0.66 0.5-1.5 CALCIUM 8.3 L 8.5-10.5 eGFR(CKD-EPI 2020) >90.0 >60 Social History: Smoking Status (Most current) and [...] 1-7 YEARS AGO CAREY DOYLE [facility] Mar 24, 2020 03:00 PM QUIT TOBACCO USE 1-7 YEARS AGO [facility] Feb 21, 2019 04:11 PM QUIT TOBACCO USE 1-7 YEARS AGO [facility] Feb 20, 2019 03:38 PM QUIT TOBACCO USE 1-7 YEARS AGO [facility] Feb 03, 2019 09:50 AM QUIT TOBACCO USE 1-7 YEARS AGO CAREY DOYLE [facility] May 25, 2016 11:53 PM [...] LONG,MARYELLEN [place] LUCAS MEEK N [id number] -1950 M [facility] Exm Date: DEC 13, 2021@12:57 Req Phys: ISATU TODD Loc: OP Unknown/0 12-15-2021@13:20 Img Loc: MRI IMAGING (OOS) Service: [facility] MEDICINE (Case [id number] COMPLETE) MRI ABDOMEN W/WO CONTRAST (M RI Detailed) CPT:99907 Reason for Study: further characterization of a [...] new lyphadenopathy REQUESTING MD: Isatu Todd PAGER: [phone] PHONE: [phone] Weight: 232.2 lb [105.32 kg] (12/12/2021 05:00) [...] 15, 2021 Date Verified: DEC 15, 2021 Jig Maker E-Sig:/ES/MARYELLEN LONG Report: MRI ABDOMEN W/WO [...] MALIGNANCY Primary Interpreting Staff: MARYELLEN LONG Staff (Jig Maker) / Pathology Reports: +/- 30 days of the [...] MILLER LOCAL TITLE: LR SURGICAL PATHOLOGY REPORT [facility] STANDARD TITLE: PATHOLOGY REPORT DATE OF NOTE: JAN 03, 2022@10:28:01 ENTRY DATE: JAN 03, 2022@10:28:01 AUTHOR: NIURKA MILLER EXP COSIGNER: URGENCY: STATUS: COMPLETED $APHDR Reporting Lab: CAREY DOYLE [facility] [CLIA# [id number]] [address] [place] [address] - - - - - - [...] automatically d ocumented from SURGERY package case #[id number] Field (#32) PRINCIPAL PRE-OP DIAGNOSIS, (#.72) OTHER [...] automatically d ocumented from SURGERY package case #[id number] Field (#34) PRINCIPAL POST-OP DIAG, (#.74) OTHER [...] GROSS DESCRIPTION: Name Label: Lucas Meek Paperwork: Meek Lucas Rojas Cassette: [id number];..;KALYANI;.;405;[id number] Specimen is labeled: ES bx Received in formalin are several pieces of pale boyd and brown tissue, 1.2 x 0.7 cm in aggregate. Submitted entirely in 1 cassette [id number];..;MEEK;.;405;[id number] SAW 12/15/2021 Microscopic exam: *+* MODIFIED REPORT [...] report in rendering the final pathologic diagnosis. [address] [address] CPT: 34192 /emely/ NIURKA Yeung MD Signed Jan 03, 2022@10:28 Performing Laboratory: Surgical Pathology Report Performed By: CAREY MONTOYA [facility] [CLIA# [id number]] [address] [place] [address] $FTR - - - - - [...] - - LUCAS MEEK STANDARD FORM 515 ID:[id number] SEX:M :1950 AGE: 71 LOC: SDM END PCP: Isatu Todd /emely/ NIURKA MILLER Staff Signed: 01/03/2022 10:28 Dec 21, 2021 11:46 AM LR SURGICAL PATHOLOGY REPORT: [facility] LOC[facility] TITLE: LR SURGICAL PATHOLOGY REPORT [facility] STANDARD TITLE: PATHOLOGY REPORT DATE OF NOTE: DEC 21, 2021@11:46:59 ENTRY DATE: DEC 21, 2021@11:46:59 AUTHOR: NIURKA MILLER EXP COSIGNER: URGENCY: STATUS: COMPLETED $APHDR Reporting Lab: [facility] [CLIA# [id number]] [address] [place] [address] - - - - - - [...] automatically d ocumented from SURGERY package case #[id number] Field (#32) PRINCIPAL PRE-OP DIAGNOSIS, (#.72) OTHER [...] automatically d ocumented from SURGERY package case #[id number] Field (#34) PRINCIPAL POST-OP DIAG, (#.74) OTHER [...] Label: Lucas Meek Paperwork: Lucas Meek Cassette: [id number];..;KALYANI;.;405;[phone] Specimen is labeled: ES bx Received in formalin are several pieces of pale boyd and brown tissue, 1.2 x 0.7 cm in aggregate. Submitted entirely in 1 cassette [id number];..;KALYANI;.;042;[id number] SAW 12/15/2021 Microscopic exam: DIAGNOSIS: A. 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 Kendell long. TIARA Coombs was notified on 12/21/21. The attending pathologist who signature mansoor ears on this report has reviewed all diagnostic slides and has edited t he gross and/or microscopic portion of this report in rendering the final pathologic diagnosis. [facility] [address] [facility] [place] [facility] [place] [address] CPT: 38530 /emely/ NIURKA Yeung MD Signed Dec 21, 2021@11:46 Performing Laboratory: Surgical Pathology Report Performed By: CAREY MONTOYA [facility] [CLIA# [id number]] [address] [place] [address] $FTR - - - - - [...] - - LUCAS MEEK STANDARD FORM 515 ID:[id number] SEX:M :1950 AGE: 71 LOC: SDM END PCP: Isatu Todd /emely/ NIURKA Yeung MD Signed: 12/21/2021 11:46 Encounter Notes: All associated encounter notes This section contains the clinical notes associated to the Encounter. Date/Time Encounter Note(s) Provider Source Jan 11, 2022 09:11 AM ADMINISTRATIVE NOTE: ZAK VILLANUEVA LOCAL TITLE: Has Admin Note [facility]3] STANDARD TITLE: ADMINISTRATIVE NOTE DATE OF NOTE: JAN 11, 2022@09:11 ENTRY DATE: JAN 11, 2022@09:11:30 AUTHOR: ZAK VILLANUEVA EXP COSIGNER: URGENCY: STATUS: COMPLETED Reason for call Clinic Name: [facility] FYI: Pt cancelled appt and does not want to be r escheduled he is going to be treated for Esophageal Ca. /emely/ ZAK VILLANUEVA Signed: 01/11/2022 09:12 Receipt Acknowledged By: * AWAITING SIGNATURE * GUERA KLEIN
--- OUTSIDE RECORDS SUMMARY | 2022-01-19 09:29 | XMS_ITS | Encounter Summary ---
:1950 Author Organization [facility] Address [address] [place] [id number] Support Name Relationship Address Phone YUSRA MEEK Unavailable [address] [place] [place] [address] YUSRA MEEK Unavailable [address] [place] [address] CLAY MOSLEY Unavailable Unavailable SJ SANTACRUZ Unavailable [...] MEDICARE MEDICARE PART Jun 18, PART A [id number] DO KALYANI PATIENT (WNR) (M) A 2016 13A 1 UGLAS MEDICARE MEDICARE PART Jun 18, PART B [id number] DO KALYANI PATIENT (WNR) (M) B 2017 81 2 LAS MEDICARE MEDICARE PART Jun 18, PART B [id number] DO KALYANI PATIENT (WNR) (M) B 2016 13A 1 UGLAS MEDICARE MEDICARE PART Jun 18, PART A [id number] DO KALYANI PATIENT (WNR) (M) A 2017 [id number] 2 LAS UNITED MEDICARE MCR(Jun 18 [id number] Luz MEEK PATIENT HEALTHCARE ADVANTAGE NR) 2021 37 0 [facility] (WNR) Selected Encounter This section includes the information on record at [place] for the Encounter. Date/Time Encounter Type Encounter Reason Provider Source Description Jan 10, 2022 Outpatient TELEPHONE ICD-10-CM C15.9 JAN-ZACH 11:30 AM Encounter PRIMARY CARE Malignant neoplasm STLIZZIE of esophagus, unspecified with Provider Comments: Adenocarcinoma of oesophagus (SNOMED CT [id number]) IHE Encounter Template Text not used by [place] Assessments - Encounter Diagnoses This section includes the primary and secondary diagnoses documented for the Encounter. 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 The data comes from all [place] treatment facilities. Test Date/Time Test Type Test [...] [place] Infusion Order [facility] Dec 15, 2021 08:41 AM Consult Order SPEECH PATHOLOGY [place] OUTPATIENT Cons [facility] Rn Observation's Choice Jan 15, 2022 10:08 PM Consult Order [facility] Cons Rn Observation's Choice Lab Results: +/- 30 days of [...] Type: PLASMA 06:43 AM [facility]3] Comment: Tests performed on Ultimate Software (405) [id number] Ordering Provid er: ISATU TODD Report Released Date/Time: Dec 11, 2021 07:42 AM Reporting Lab: [place] [facility] [address] [facility] [address] Performing Lab: [facility] [address] [facility] [address] UREA NITROGEN 9 7-25 SODIUM 137 135-145 POTASSIUM 3.8 3.5-5.0 CHLORIDE 105 100-110 CARBON DIOXIDE 26 20-30 ANION GAP 6 4-16 GLUCOSE 102 H 65-100 CREATININE 0.64 0.5-1.5 CALCIUM 8.1 L 8.5-10.5 eGFR(CKD-EPI 2020) >90.0 >60 Dec 15, 2021 06:43 AM [facility]3] CBC PROFILE Sp ecimen Type: BLOOD No comment enter ed. Ordering Provid er: ISATU TODD Report Released Date/Time: Dec 10, 2021 07:22 AM Reporting Lab: [place] [facility] [address] [facility] [address] Performing Lab: [facility] [address] [facility] [address] WBC 5.7 4.5-11.0 RBC 4.22 L 4.23-5.66 [...] CYTOGENETIC Specimen Type: ESOPHAGUS 02:59 PM [facility] [place] [place] Comment: ~For T est: [place]GENETIC [place] [place] ~FISH HER 2 NUE, FFPE See full report in Hel[employer]ia Image display viewer/tab#LAB-Reference Ordering Provid er: NIURKA MILLER Report Released Date/Time: Dec 21, 2021 12:11 PM [facility] [address] [facility] [address] Performing Lab: [facility] CYTOGENETIC FISH[place] [place] comment Dec 14, 2021 [facility] P4 GLU,BUN,CREAT,LYTES,CA Speci men Type: PLASMA 06:27 AM [facility]3] Comment: Tests performed on [employer] Software (405) [id number] Ordering Provid er: ISATU TODD Report Released Date/Time: Dec 11, 2021 07:42 AM [facility] [address] [facility] [address] Performing Lab: [facility] [address] [facility] [address] UREA NITROGEN 10 7-25 SODIUM 137 135-145 [...] AM Reporting Lab: [facility] [address] [facility] [address] Performing Lab: [facility] [address] [facility] [address] WBC 6.0 4.5-11.0 RBC 4.29 4.23-5.66 HGB [...] [facility]] Comment: Tests performed on Ultimate Software (405) SN:[id number] Ordering Provid er: ISATU TODD Report Released Date/Time: Dec 11, 2021 07:42 AM Reporting Lab: [facility] [address] [facility] [address] Performing Lab: [facility] [address] [facility] [address] UREA NITROGEN 12 7-25 SODIUM 136 135-145 [...] AM Reporting Lab: [facility] [address] [facility] [address] Performing Lab: [facility] [address] [facility] [address] WBC 5.6 4.5-11.0 RBC 4.28 4.23-5.66 HGB [...] 0.00 0-0 Dec 12, 2021 CAREY DOYLE T P4 GLU,BUN,CREAT,LYTES,CA Speci men Type: PLASMA 06:21 AM [facility]3] Comment: Tests performed on Ultimate Software (405) SN:[id number] Ordering Provid er: ISATU TODD Report Released Date/Time: Dec 11, 2021 07:42 AM Reporting Lab: [facility] [address] [facility] [address] Performing Lab: [facility] [address] [facility] [address] UREA NITROGEN 11 7-25 SODIUM 139 135-145 [...] 10, 2021 07:22 AM Reporting Lab: [facility] [address] [facility] [address] Performing [facility]: [facility] [address] [facility] [address] WBC 5.5 4.5-11.0 RBC 4.37 4.23-5.66 HGB [...] PLASMA Comment: Testin g Performed on [employer] (405) [id number] Ordering Provid er: ISATU TODD Report Released Date/Time: Dec 12, 2021 08:24 AM Reporting Lab: [facility] [address] [facility] [address] Performing Lab: [facility] [address] [facility] [address] MAGNESIUM 1.8 1.6-2.6 Dec 12, 2021 06:00 AM [place] [facility] PHOSPHORUS Sp ecimen Type: PLASMA Comment: Testin g Performed on [employer] Software (405) SN:[id number] Ordering Provid er: ISATU TODD Report Released Date/Time: Dec 12, 2021 08:24 AM Reporting Lab: [place] [facility] [address] [facility] [address] Performing Lab: [facility] [address] [facility] [address] PHOSPHORUS 3.1 2.5-5.0 Social History: Smoking Status (Most current) and [...] AM QUIT TOBACCO USE 1-7 YEARS AGO [facility] quit mar 2016 Tobacco Use History This section includes a history of the smoking, or tobacco- related health factors, that were collected on or before the date of the Encounter. The data comes from the [place] facility where the Encounter took place. Date/Time Smoking Status/Tobacco Use Comment Subhash [email or web address] Nov 21, 2016 08:42 AM QUIT TOBACCO USE 1-7 YEARS AGO [facility] apr 17 1916 Radiology Reports: +/- 30 [...] the Encounter. The data comes from all [place] treatment facilities. Date/Time Radiology Report Provider Source Dec 13, 2021 12:57 PM MRI ABDOMEN W/WO CONTRAST: MIN LONGN CAREY VIVEK T KALYANILUCAS N [id number] -1950 [facility] Exm Date: DEC 13, 2021@12:57 Req Phys: ISATU TODD Loc: OP Unknown/0 12-15-2021@13:20 Img Loc: MRI IMAGING (OOS) Service: ZZGENERAL MEDICINE (Case [id number] COMPLETE) MRI ABDOMEN W/WO CONTRAST (M RI Detailed) CPT:21487 Reason for Study: further characterization of a [...] new lyphadenopathy REQUESTING MD: Isatu Todd PAGER: [phone] PHONE: [phone] Weight: 232.2 lb [105.32 kg] (12/12/2021 05:00) [...] 15, 2021 Date Verified: DEC 15, 2021 Infusion Rn E-Sig:/ES/MARYELLEN LONG Report: MRI ABDOMEN W/WO CONTRAST [...] MALIGNANCY Primary Interpreting Staff: Staff AMELIA THOMAS (Infusion Rn) / Pathology Reports: +/- 30 days of [...] the Encounter. The data comes from all [place] treatment facilities. Date/Time Pathology Report Provider Source [...] [facility]3] [CLIA# [id number]] [address] [place] [address] - - - - - - [...] automatically d ocumented from SURGERY package case #[id number] Field (#32) PRINCIPAL PRE-OP DIAGNOSIS, (#.72) OTHER [...] automatically d ocumented from SURGERY package case #[id number] Field (#34) PRINCIPAL POST-OP DIAG, (#.74) OTHER [...] Label: Lucas Meek Paperwork: Lucas Meek Cassette: [id number];..;KALYANI;.;405;[phone] Specimen is labeled: ES bx Received in formalin are several pieces of pale boyd and brown tissue, 1.2 x 0.7 cm in aggregate. Submitted entirely in 1 cassette [id number];..;KALYANI;.;405;[id number] SAW 12/15/2021 Microscopic exam: *+* MODIFIED REPORT *+* (Last modified: JAN 03, 2022@09:30:20 typed by NIURKA WADDELL) DIAGNOSIS: A. 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 Kendell long. TIARA Coombs was notified on 12/21/21. Modified on 01/03/22 to include report from [facility] stating that tumor is NEGATIVE for her2/ matheus amplification. The attending pathologist who signature mansoor ears on this report has reviewed all diagnostic slides and has edited t he gross and/or microscopic portion of this report in rendering the final pathologic diagnosis. [facility] [address] [place] [address] CPT: 15612 /emely/ NIURKA Yeung MD Signed Jan 03, 2022@10:28 Performing Laboratory: Surgical Pathology Report Performed By: CAREY MONTO[facility]3] [CLIA# [id number]] [address] [place] [address] $FTR - - - - - [...] - - LUCAS MEEK STANDARD FORM 515 ID:[id number] SEX:M :1950 AGE: 71 LOC: SDM END [...] COMPLETED $APHDR Reporting Lab: [facility] [CLIA# [id number]] [address] [place] [address] - - - - - - [...] automatically d ocumented from SURGERY package case #[id number] Field (#32) PRINCIPAL PRE-OP DIAGNOSIS, (#.72) OTHER [...] automatically d ocumented from SURGERY package case #[id number] Field (#34) PRINCIPAL POST-OP DIAG, (#.74) OTHER [...] Label: Lucas Meek Paperwork: Lucas Meek Cassette: [id number];..;KALYANI;.;405;[id number] Specimen is labeled: ES bx Received in formalin are several pieces of pale boyd and brown tissue, 1.2 x 0.7 cm in aggregate. Submitted entirely in 1 cassette [id number];..;KALYANI;.;405;[id number] SAW 12/15/2021 Microscopic exam: DIAGNOSIS: A. 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 Kendell long. TIARA Coombs was notified on 12/21/21. The attending pathologist who signature mansoor ears on this report has reviewed all diagnostic slides and has edited t he gross and/or microscopic portion of this report in rendering the final pathologic diagnosis. [address] [address] CPT: 51748 /emely/ NIURKA Yeung MD Signed Dec 21, 2021@11:46 Performing Laboratory: Surgical Pathology Report Performed By: [facility]3] [CLIA# [id number]] [address] [place] [address] $FTR - - - - - [...] - - LUCAS MEEK STANDARD FORM 515 ID:[id number] SEX:M :1950 AGE: 71 LOC: SDM END PCP: Isatu Todd /charmaine Yeung MD Signed: 12/21/2021 11:46 Encounter Notes: All associated encounter notes This section contains the clinical notes associated to the Encounter. Date/Time Encounter Note(s) Provider Source Jan 10, 2022 11:30 PRIMARY CARE TELEPHONE ENCOUNTER NOTE: KAITLIN SALDANA [facility] LOCAL TITLE: Telephone Note-Primary Care [facility] STANDARD TITLE: PRIMARY CARE TELEPHONE ENCOUNTER NOTE DATE OF NOTE: JAN 10, 2022@11:30 ENTRY DATE: JAN 15, 2022@22:09:38 AUTHOR: DIPIKA TINOCO EXP COSIGNER: URGENCY: STATUS: COMPLETED Work Phone: NONE Cell phone: Telephone Note - Primary Care LUCAS MEEK is a 71 year old MALE with hist ory of psoriasis, lung cancer 04/2018 s/p chemotherapy/radx/dervalumab now in remission, diverticulitis s/p partial colonic resection, chronic low back pain w/ spinal stenosis s/p discectomy (remote), COPD, OA s/p R TKA (), dysphagia found on recent work-up to have esophageal cancer (EGD 12/14/21 p oorly differentiated adenocarcinoma with focal signet ring features). Telephone appointment scheduled to follow-up on esophgeal cancer and p ost-hospital discharge. He declined [id number] appointment. Pierre reports that he is doing fine - Has been fo llowing with his oncologist who treated his lung cancer Dr. Sequeira at [facility]. He is on mostly liquid diet and cannot eat a lot . Has nutritional support and receiving 2-3 ensures from [facility] per day. Old port reomved, new port placed. PET . Chemotherapy starting next week. Reports does not need anything at this time. We discussed that his oncologist has referred him to Palliative Care who he would like to see at [facility]. - Palliative Care referral # RTC F2F as scheduled 03/2022 14 minutes Medication Reconciliation: Allergies/ADRs (Tool #5) FACILITY ALLERGY/ADR -------- No Remote [facility] Recon NoGlossary (Tool #1) INCLUDED [...] of VA prescriptions disp ensed from another VA or [facility] facility (remote) is limited to active outp atient prescription entries matched to National Drug File at the [facility] site and may not include some items such as investigational drugs, compo unds, etc. NOT INCLUDED IN THIS LIST: Medications self-ent ered by the patient into personal health records (i.e. [employer]) ar e NOT included in this list. Non-VA medications documented outside [facility], remote inpatient orders (regardless of status) and remote clinic medications are NOT included in this list. The patient and provider must always discuss medications the patient is taking, regardless o f where the medication was dispensed or obtained. OUTPT ALBUTEROL 90MCG (CFC-F) 200D ORAL INHL (S tatus = Active) INHALE 2 PUFFS BY MOUTH FOUR TIMES DAILY NEE DED FOR BREATHING Rx# [id number] Last Released: 05/20/21 Qty/Days Borges pply: Rx Expiration Date: 05/17/22 Refills Remainin OUTPT AMLODIPINE BESYLATE 5MG TAB (Status = Act azar) TAKE ONE TABLET BY MOUTH EVERY DAY FOR BLOOD IL ESSURE/HEART, DO NOT TAKE WITH GRAPEFRUIT JUICE Rx# [id number] Last Released: 12/01/21 Qty/Days Sup ply: Rx Expiration Date: 05/17/22 Refills Remainin OUTPT AMMONIUM LACTATE 12% LOTION (Status = EXP IRED) APPLY THIN FILM TOPICALLY EVERY DAY FOR DRY IRR ITATED SKIN ON ARMS AND LEGS Rx# [id number] Last Released: 05/18/21 Qty/Days Sup ply: 240/30 Rx Expiration Date: 11/20/21 Refills Remainin OUTPT CARBOXYMETHYLCELLULOSE NA 0.5%(PF)OP BOB (Status = Active) INSTILL ONE DROP IN BOTH EYES FOUR TIMES A DAY FOR DRYNESS Rx# [id number] Last Released: 05/11/21 Qty/Days Borges pply: 60/30 Rx Expiration Date: 02/25/22 Refills Remainin OUTPT CHOLECALCIF 10MCG (D3-400UNIT) TAB (Statu s = Active) TAKE ONE TABLET BY MOUTH EVERY DAY Rx# [id number] Last Released: 12/27/21 Qty/Days Sup ply: 100/90 Rx Expiration Date: [...] 32 GRAMS DAILY OVER ALL JOINTS. Rx# [id number] Last Released: 05/20/21 Qty/Days Borges pply: 100/30 Rx Expiration Date: 05/17/22 Refills Remainin OUTPT FAMOTIDINE 10MG TAB (Status = Discontinue d) TAKE ONE TABLET BY MOUTH TWICE A DAY FOR STOMAC H ACID Rx# [id number] Last Released: 12/15/21 Qty/Days Sup ply: 180/90 Rx Expiration Date: 03/15/22 Refills Remainin OUTPT FAMOTIDINE 10MG TAB (Status = Active/Susp ended) TAKE ONE TABLET BY MOUTH TWICE A DAY FOR STOMAC H ACID Rx# [id number] Last Released: Qty/Days Supply: 180/ Rx Expiration Date: 01/11/23 Refills Remainin OUTPT HYDROPHILIC (EQV EUCERIN) TOP CREAM (Stat us = ) APPLY SMALL AMOUNT TOPICALLY NEEDED Rx# [id number] Last Released: 05/17/21 Qty/Days Borges pply: 454/30 Rx Expiration Date: 10/29/21 Refills Remainin OUTPT LOSARTAN 25MG TAB (Status = Active) TAKE ONE-HALF TABLET BY MOUTH EVERY DAY FOR BLO OD PRESSURE/HEART Rx# [id number] Last Released: 12/27/21 Qty/Days Sup ply: Rx Expiration Date: 05/17/22 Refills Remainin OUTPT METFORMIN HCL 500MG 24HR SA TAB (Status = Discontinued) TAKE ONE TABLET BY MOUTH EVERY DAY WITH A MEAL FOR DIABETES Rx# [id number] Last Released: 08/25/21 Qty/Days Sup ply: Rx Expiration Date: 05/17/22 Refills Remainin OUTPT NUTRITION SUPL ENSURE PLUS/JODIE LIQUID (S tatus = Active) TAKE 1 CAN BY MOUTH THREE TIMES A DAY ; DRINK 2 -3/DAY ANY FLAVOR Rx# [id number] Last Released: 12/20/21 Qty/Days Supp ly: Rx Expiration Date: 12/17/22 Refills Remainin OUTPT NUTRITION SUPL ENSURE PLUS/STRWBERRY LIQ (Status = Active) TAKE 1 CAN BY MOUTH THREE TIMES A DAY ; DRINK 2 -3/DAY ANY FLAVOR Rx# [id number] Last Released: 12/20/21 Qty/Days Supp ly: Rx Expiration Date: 12/17/22 Refills Remainin OUTPT NUTRITION SUPL ENSURE PLUS/VANILLA LIQ (S tatus = Active) TAKE 1 CAN BY MOUTH THREE TIMES A DAY ; DRINK 2 -3/DAY ANY FLAVOR Rx# [id number] Last Released: 12/20/21 Qty/Days Supp ly: Rx Expiration Date: 12/17/22 Refills Remainin OUTPT OLODATEROL/TIOTROP 2.5MCG/ACTUAT 60D INH (Status = Active) INHALE 2 PUFFS BY MOUTH EVERY DAY FOR BREATHING Rx# [id number] Last Released: 10/04/21 Qty/Days Sup ply: Rx Expiration Date: 05/17/22 Refills Remainin OUTPT OMEPRAZOLE 20MG EC CAP (Status = Disconti nued) TAKE ONE CAPSULE BY MOUTH EVERY MORNING BEFORE BREAKFAST FOR STOMACH ACID (TAKE HALF-HOUR BEFORE A MEAL) Rx# [id number] Last Released: 11/02/21 Qty/Days Sup ply: Rx Expiration Date: 01/29/22 Refills Remainin OUTPT OMEPRAZOLE 20MG EC CAP (Status = Active) TAKE ONE CAPSULE BY MOUTH TWICE A DAY 30 MINUTE S BEFORE MEALS FOR STOMACH ACID (TAKE HALF-HOUR BEFORE A MEAL) Rx# [id number] Last Released: 11/16/21 Qty/Days Supp ly: 180/90 Rx Expiration Date: 11/16/22 Refills Remainin OUTPT SALICYLIC ACID 3% SHAMPOO (Status = EXPIR ED) SHAMPOO SMALL AMOUNT TOPICALLY ON MONDAYS, AND FRIDAYS ; MASSAGE INTO SCALP, LET SIT 10 MIN AND RINSE Rx# [id number] Last Released: 04/02/21 Qty/Days Borges pply: 240/30 Rx Expiration Date: 11/20/21 Refills Remainin OUTPT SERTRALINE HCL 50MG TAB (Status = Active) TAKE THREE TABLETS BY MOUTH EVERY DAY FOR DEPRE SSION OR ANXIETY Rx# [id number] Last Released: 12/27/21 Qty/Days Sup ply: 270/90 Rx Expiration Date: 05/17/22 Refills Remainin OUTPT TURMERIC CURCUMIN COMPLEX 500MG CAP/TAB ( Status = ) TAKE ONE CAP/TAB BY MOUTH TWICE A DAY Rx# [id number] Last Released: 05/16/21 Qty/Days Borges pply: 180/90 Rx Expiration Date: 11/02/21 Refills Remainin SUPPLIES PTSD Screening: The patient declined to complete the PTSD scree jerome questions. Home [facility] Referral: Patient declines participation [facility] at this time. Follow Up Colonoscopy: Colonoscopy is due based on information availab le to this reminder. Patient declined screening/surveillance. Comment: new esophageal cancer /es/ KAITLIN TINOCO MD Staff Physician Signed: 01/15/2022 22:12
--- OUTSIDE RECORDS SUMMARY | 2022-01-19 09:30 | XMS_ITS | Continuity of Care Document ---
:1950 Author Organization [facility] Address [address] [place] [address] Care Team Providers Name Role Phone Out of Town, Provider Primary Care Physician Unavailable Isai Mcduffie Admitting Physician Helene Griffin Attending Physician Allergies, Adverse Reactions, Alerts No known allergies. Medications No known medications. Problem List Active Problems Medical Problem Onset Date Status Acute encephalopathy Active Fever of unknown origin Active Rhabdomyolysis Active Elevated liver enzymes Active Sepsis Active Altered mental status Active Lactic acidosis Active Procedures Procedure Date Status CT Chest Abd Pel w/ Contrast April 16, 2020 completed US Abdomen (Limited) April 16, 2020 completed Blood Culture April 15, 2020 completed Blood Culture April 15, 2020 active Chest 1 vw April 14, 2020 completed INTERFACE ELECTROCARDIOGRAM April 14, 2020 completed Urine Culture April 13, 2020 completed CSF Culture April 13, 2020 completed Gram Stain April 13, [address] Head w/o Contrast April 13, 2020 completed Chest 1 vw April 13, 2020 completed INTERFACE ELECTROCARDIOGRAM April 13, 2020 completed Relevant Diagnostic Tests and/or Laboratory Data Laboratory Results Test Date/Time Result Interp. Ref. Result Comment Range White Blood Count April 19, 6.15 1000/mm3 4.8-10.8 2019 6:21am Red Blood Count April 19, 4.61 M/mm3 Low 4.70-6.0 2019 6:21am 0 Hemoglobin April 19, 13.6 g/dL Low 14.0-18. 2020 6:21am 0 Hematocrit April 19, 40.5 % Low 42-52 2019 6:21am Mean Corpuscular April 19, 87.9 fL 80.0-94. Volume 2019 6:21am 0 Mean Corpuscular April 19, 29.5 pg 27-31 Hemoglobin 2019 6:21am Mean Corpuscular April 19, 33.6 g/dL 33-37 Hemoglobin Concent 2019 6:21am Red Cell April 19, 13.8 % 11.5-14. Distribution Width 2019 6:21am 5 Platelet Count April 19, 87 1000/mm3 Low 554-532 9430 6:21am Mean Platelet April 19, 12.6 fL High 7.4-10.4 Volume 2019 6:21am Neutrophils (%) April 16, 81.2 % High 40.0-72. (Auto) 2019 7:01am 0 Lymphocytes (%) April 16, 11.0 % Low 17-45 (Auto) 2019 7:01am Monocytes (%) April 16, 6.9 % 3-11 (Auto) 2019 7:01am Eosinophils (%) April 16, 0.0 % 0-3 (Auto) 2019 7:01am Basophils (%) April 16, 0.3 % 0-1 (Auto) 2019 7:01am Immature April 16, 0.6 % 0-1 Granulocyte % 2019 7:01am (Auto) Neutrophils # April 16, 2.72 1000/mm3 1.4-6.5 (Auto) 2019 7:01am Lymphocytes # April 16, 0.37 1000/mm3 Low 1.2-3.4 (Auto) 2019 7:01am Monocytes # (Auto) April 16, 0.23 1000/mm3 0.0-0.8 2019 7:01am Eosinophils # April 16, 0.00 1000/mm3 0.0-0.7 (Auto) 2019 7:01am Basophils # (Auto) April 16, 0.01 1000/mm3 0.0-0.1 2019 7:01am Absolute Immature April 16, 0.0 0-1 Granulocyte (auto 2019 7:01am Differential Method April 16, Automated 2019 7:01am Platelet Estimate April 15, Clumped, 2019 6:12am unavailable Platelet Clumps, April 15, 2+ EDTA 2019 6:12am Differential April 16, See comments Mild lyhm phopenia and new onset thrombocytopenia. Laboratory data reviewed. Suggest consideration with hepatitis viral serologies and further image analysis(CT of abdomen) if clinically indicated. Pathologist's 2019 7:01am Smear revi ewed by pathologist for quality control lab tech. Review Kaushik Feliz MD 04/16/20 Erythrocyte October 29, 2 mm/hr 0-30 Sedimentation Rate 2019 9:45pm Urine RBC April 13, 0-2 /hpf 2019 8:27pm Urine WBC April 13, None seen /hpf 2019 8:27pm Urine Bacteria April 13, None seen /hpf 2019 8:27pm Urine Mucus April 13, Present 2019 8:27pm Ur Streptococcus April 14, Negative Presump tive negative for pneumococcal pneumonia, suggesting pneumoniae Antigen 2019 11:00pm no c urrent or recent infection. Infection due to S. pneumoniae can not be ruled out since the antigen present in the sample may be below detection limit of the test. -----ADDITIONAL INFORMATION This assay was performed using the FDA-cleared BinaxNOW Streptococcus pneumoniae Antigen test, a rapid immunochromato graphic assay. Test Performed by: [place] [address] Roof Shingler: Ford Hector M.D. Ph.D.; CLIA# [id number] Urine Legionella April 14, Negative Presump tive negative for L. pneumophila serogroup 1 Antigen 2019 11:00pm antigen, sug gesting no recent or current infection. Infection due to Legionella cannot be ruled out since other serogroups and species may cause disease, antigen may not be present in urine in early infection, and the level of antigen presen t in the urine may be below the detection limit of the t est. -----ADDITIONAL INFORMATION This assay was performed using the FDA-cleared BinaxNOW Legionella Uri nary Antigen Test, a rapid immunochromato graphic assay. Test Performed by: [place] [address] Roof Shingler: Ford Hector M.D. Ph.D.; CLIA# [id number] Sodium Level April 19, 138 mmol/L 568-307 5472 6:21am Potassium Level April 19, 3.7 mmol/L 3.6-5.0 2019 6:21am Chloride Level April 19, 107 mmol/L 98-107 2019 6:21am Carbon Dioxide April 19, 26 mmol/L 22-30 Level 2019 6:21am Anion Gap April 19, 5 Low 7-16 2019 6:21am Blood Urea Nitrogen April 19, 10 mg/dL 8-2019 6:21am Creatinine April 19, 0.56 mg/dL Low 0.66-1.2 2019 6:21am 5 Glomerular April 19, > 60 mL/min 60.0- Filtration Rate 2019 6:21am Calc Glucose Level April 19, 87 mg/dL 70-100 2019 6:21am Calcium Level April 19, 7.9 mg/dL Low 8.4-10.2 2019 6:21am Calcium Adjusted April 19, 9.0 mg/dL 8.4-10.2 for Albumin 2019 6:21am Phosphorus Level April 14, 2.8 mg/dL 2.5-4.5 2019 12:00am Magnesium Level April 14, 1.9 mg/dL 1.6-2.3 2019 12:00am Total Bilirubin April 19, 1.0 mg/dL 0.2-1.3 2019 6:21am Direct Bilirubin April 15, 0.0 mg/dL 0-0.3 2019 9:45pm Aspartate Amino April 19, 212 U/L High 17-59 Transf (AST/SGOT) 2019 6:21am Alanine April 19, 143 U/L High As of 10/17/19, the Reference Range for ALT/SGPT for adult patients has been updated. Aminotransferase 2019 6:21am The Ref erence Range for ALT/SGPT has not been established for patients <18 years of age. (ALT/SGPT) Lactic Acid Level April 16, 3.6 mmol/L High 0.7-2.1 2019 7:01am Lactate April 19, 1103 U/L High 313-618 Note: LDH act ivity can Dehydrogenase 2019 6:21am be decreas ed upon refrigerated o r frozen storage. Creatine Kinase April 18, 667 U/L High 55-170 2019 6:21am Total Protein April 19, 5.8 g/dL Low 6.3-8.2 2019 6:21am Albumin April 19, 2.9 g/dL Low 3.5-5.0 2019 6:21am Cholesterol Level April 14, 232 mg/dL High 59-199 2019 12:00am HDL Cholesterol April 14, 29 mg/dL Low 40-60 The [place] Cholesterol Education Program (NCEP) has set the following guidelines (reference values) for cholesterol, HDL: 2019 12:00am Low HDL: <40 mg/dL Normal: 40-60 mg/dL Desirable: >60 mg/dL LDL Cholesterol April 14, 182.6 mg/dL High 0-129 2019 12:00am VLDL Cholesterol April 14, 20.4 mg/dL 0-32 2019 12:00am Cholesterol/HDL April 14, 8.00 High 0-3.9 Ratio 2019 12:00am Triglycerides Level April 14, 102 mg/dL 0-149 2019 12:00am Alkaline April 2, 155 U/L High 38-126 Phosphatase 2019 6:21am Thyroid Stimulating April 14, 1.73 mlU/L 0.47-4.6 The results of this Hormone (TSH) 2019 12:00am 8 assay can be falsely decreased in p atients who consume Bi otin. Hemoglobin A1c April 13, 5.08 % <5.7%: No rmal Percent 2019 6:45pm 5.7%-6.4%: Pr ediabetes >=6.5%: Diagno stic for diabetes Goals for Glyc emic Control in Diabetes (ADA 2018) <7.0%: A1c tar get for non adults with diabetes. More or less stringent glycemic goals may be appropriate for individual patients. <7.5%: A1c tar get for children and adolescents with type I diabetes. A lower goal is reasonable if it can be achieved without excessive hypoglycemia. Estimated Average April 13, 99 mg/dL Glucose mg/dL 2019 6:45pm C-Reactive Protein April 15, 245.8 mg/L High 5-10 2019 9:45pm Influenza Type A April 13, Negative (RT-PCR) 2019 7:30pm Influenza Type B April 13, Negative (RT-PCR) 2019 7:30pm Respiratory April 13, Negative Syncytial Virus 2019 7:30pm (RT-PCR Herpes Simplex April 13, Negative Virus I DNA (PCR) 2019 9:45pm Herpes Simplex April 13, Negative Virus II DNA (PCR) 2019 9:45pm Varicella-Zoster April 13, Not Reportable Specimen Descript 2019 9:45pm Varicella-Zoster April 13, Negative Virus DNA (PCR) 2019 9:45pm Coronavirus 2019 April 13, Negative This te st has not been FDA cleared or approved. This test PCR Interp 2019 7:13pm has been auth orized by FDA under an EUA for use by authorized lab oratories. This test has been authorized only for detection of nucleic acid from 2019-nCoV, not for any other viruses or pathogens. This test is only authorized for the durati on of the declaration that circumstances exist justifyi ng the authorization of emergency use of in vitro diagnost ic tests for detection and/or diagnosis of 2019-nCoV unde r section 564(b)(1) of Act, 21 U.S.C ? 360bbb-3(b) (1 ), unless the authorization is terminated or revoked sooner . Negative resul ts do not preclude 2019-nCoV infection and should not be used as the sole basis for treatment or other patient manage ment decisions. Negative results must be combined with clinical observations, patient history, and epidemiologica l information. Performed on t he [employer] [facility] instrument Reference Lab Test April 13, [facility] [address] ease indicate the Triage Tier1 Performing Site 2019 7:13pm lab Test per formed or referred by The [address] [address] CSF Appearance April 13 Clear 2019 9:45pm CSF Color April 13 Colorless 2019 9:45pm CSF Volume April 13, 14 mL 2019 9:45pm Body Fluid Number April 13, 4 of Tubes 2019 9:45pm CSF WBC April 13, 3 0-5 Cell Count pe rformed on tube number 4 2019 9:45pm Cell Count pe rformed on tube number 4 CSF RBC April 13, 2 0-9 Cell Count pe rformed on tube number 4 2019 9:45pm Cell Count pe rformed on tube number 4 CSF Glucose April 13, 60 mg/dL 40-70 2019 9:45pm CSF Total Protein April 13, 70 mg/dL High 12-60 2019 9:45pm Urine Methadone April 13, Negative ng/mL Screen 2019 8:27pm Venous Blood pH April 13, 7.43 pH High 7.31-7.4 2019 6:45pm 1 Venous Blood pCO2 April 13, 39 mmHg Low 41-51 at Patient Temp 2019 6:45pm Venous Blood HCO3 April 13, 25.8 mmol/L 23-30 2019 6:45pm Venous Blood Base October 27, 1.0 mmol/L -2.0-2.0 Excess 2019 6:45pm Microbiology Results Procedure Source Result Collection Date/Time Result Date/Time CSF Culture Csf NO GROWTH AFTER 72 April 13, 2020 HOURS 9:45pm Gram Stain Csf No results entered April 13, 2020 9:45pm Urine Culture Ur,Clean Catch No results entered April 13, 2020 8:27pm Blood Culture Blood NO GROWTH AFTER 5 April 15, 2020 DAYS 9:50pm Advance Directives Advance Directive Response Recorded Date/Time Do we have a copy on file here at [facility]? No O ct2019 9:44pm Does patient have an Advanced Directive? No April 13, 2020 9:44pm Pt has a Living Will? No April 13, 2020 9 :44pm Pt has a Power of Tableau Analyst? No April 13, 2020 9:44pm Chief Complaint and Reason for Visit Encounter Admit Date Chief Complaint Reason for Visit Discharged Inpatient April 14, 2020 5:55am Fever Acu te encephalopathy Altered mental s tatus Elevated liver e nzymes Fever of unknown origin Rhabdomyolysis Hospital Discharge Instructions No known hospital discharge instructions. Encounters Encounter Facility Location Admit/Visit Discharge/Departure Atte nding Date Date Provider Discharged [facility] April 14April 19, 2020 [place] 2019 5:55am 12:11pm Helene Registered [facility] April 14, [facility] 2019 3:32am Isai Encounter Diagnosis Onset Date Acute encephalopathy Altered mental status Elevated liver enzymes Fever of unknown origin Rhabdomyolysis Family History Query Response Instance Date Recorded Comment Family History Noncontributory April 14, 2020 5:59am Unable to Obtain Functional Status Query Response Date Recorded Comment Comprehension Ability Understands Concepts April 15, 2020 8:00 pm Speech Appropriate April 14, 2020 3:44am Clear Query Response Date Recorded Comment Ambulation Ability Moderate Assistance April 14, 2020 3:44am Clothing Mgt Ability Independent April 14, 2020 3:44am Feeding Ability Independent April 14, 2020 3:44am Hygiene & Grooming Ability Independent April 14, 2020 3:44 am Oral Hygiene Ability Independent April 14, 2020 3:44am Toileting Ability Moderate Assistance April 14, 2020 3:44am Immunizations No known immunizations. Plan of Care Instructions Fever of Unknown Origin (DC) COVID 19 General Instructions- decrease the spread of coronavirus ([facility]) Goals: Return to improved or baseline le josi of mobility Social History Query Response Date Recorded Comment Alcohol Use No April 14, 2020 5:59am Smoking Status Never smoker April 14, 2020 5:59am Substance/Street Drug Use No April 14, 2020 5:59a m Query Response Start Date Stop Date Smoking Status Never smoker Vital Signs Vital Reading Result Reference Range Collection Date/ Time Height 5 ft 11 in April 14, 2020 2:41pm Weight 109.6 kg April 14, 2020 2:41pm Temperature 97.0 F 97.6 F-99.6 F April 19, 2020 9:37am Pulse 100 BPM 60-100 April 19, 2020 9:37am Respiration 19 RPM 12-24 April 19, 2020 9:37am Pulse Oximetry 97 % 95-100 April 19, 2020 9:37am Blood Pressure Systolic 148 100-140 April 19, 2020 9:37am Blood Pressure Diastolic 84 50-85 Novem2019 9:37am Body Mass Index 33.7 April 14, 2020 2:41pm
--- OUTSIDE RECORDS SUMMARY | 2022-01-19 09:30 | XMS_ITS | Continuity of Care Document ---
:1950 Demographics Phone Unavailable Preferred Language Unknown Marital Status Unknown Alevism Affiliation Unknown Race Unknown Ethnic Group Unknown Author Organization [facility] Address [address] [place] [address] Allergies, Adverse Reactions, Alerts No allergy information available. Medications No medication information available. Problem List No problem information available. Procedures No known history of procedures. Relevant Diagnostic Tests and/or Laboratory Data No known relevant diagnostic tests, laboratory data, and/or discharge summary. Hospital Discharge Instructions No known hospital discharge instructions. Functional Status No known functional status. Immunizations No known immunizations. Plan of Care No Known Plan of Care Information Social History No known social history. Vital Signs No known vital signs results.
--- OUTSIDE RECORDS SUMMARY | 2022-01-19 09:30 | XMS_ITS ---
NUTRITION/DIETETICS-INDIVIDUAL [facility] [place] [facility] Encounter Summary Created on:January 18, 2022 Patient:LUCAS MEEK Sex:Male :1950 Author Organization [facility] Address [address] [place] [id number] Support Name Relationship Address Phone YUSRA MEEK Unavailable [address] [place] [facility] [place] [address] YUSRA MEEK Unavailable [address] [place] [facility] [place] [address] CLAY MOSLEY Unavailable Unavailable SJ SANTACRUZ Unavailable [...] MEDICARE MEDICARE PART Jun 18, PART A [id number] KALYANI PATIENT (WNR) (M) A 2016 13A 1 UGLAS MEDICARE MEDICARE PART Jun 18, PART B [id number] KALYANI PATIENT (WNR) (M) B 2016 13A 1 [place]AS MEDICARE MEDICARE PART Jun 18, PART A [id number] KALYANIDO PATIENT (WNR) (M) A 2017 VH81 2 UGLAS MEDICARE MEDICARE PART Jun 18, PART B [id number] MEEK DO PATIENT (WNR) (M) B 2017 VH81 2 LAS UNITED MEDICARE MCR(Jun 18 [id number] Luz MEEK PATIENT HEALTHCARE ADVANTAGE NR) 2021 37 0 [facility] (WNR) Selected Encounter This section includes the information on record at [place] for the Encounter. Date/Time Encounter Type Encounter Description Reason Provider Source Jan 18, 2022 01:08 Outpatient Encounter NUTRITION/DIETETICS-I PM NDIVIDUAL IHE Encounter Template Text not used by [...] SURGERY [place] [facility] Mar 21, 2022 10:30 AM AMBULATORY - MEDICINE [facility] Jul 21, 2022 10:30 AM AMBULATORY - [place]ICINE [place] [facility] Active, Pending, and Scheduled Orders This section includes a listing of several types of active, pending, and scheduled orders, including clinic medications orders, diagnostic test orders, procedure orders and consult orders; where the start date of the order is 45 days before the date of the Encounter or 45 days after the date of the Encounter. The data comes from all [place] treatment [facility]. Test Date/Time [...] [place] OUTPATIENT [facility] Blade Sharpener[facility] Choice Jan 15, 2022 10:08 PM Consult Order [facility] CARE-PALLIATIVE CARE Cons [place] Choice Social History: Smoking Status (Most current) [...] took place. Date/Time Current Smoking Status Comment [facility] Dec 06, 2021 11:40 AM QUIT TOBACCO [...] 1-7 YEARS AGO [facility] Feb 21, 2019 04:11 PM QUIT TOBACCO USE 1-7 YEARS AGO [facility] Feb 20, 2019 03:38 PM QUIT TOBACCO USE 1-7 YEARS AGO [facility] Feb 03, 2019 09:50 AM QUIT TOBACCO USE 1-7 YEARS AGO [facility] May 25, 2016 11:53 PM QUIT TOBACCO USE IN PAST YEAR [facility] May 23, 2016 06:57 PM [...] YEAR [facility] May 01, 2016 11:19 AM QUIT TOBACCO USE IN PAST YEAR [facility] Mar 16, 2016 12:50 PM V1-PT DECLINES REF TO TOBACCO [facility] CESS [facility] Mar 16, 2016 12:50 PM V1-PT THINKING ABOUT QUIT [facility] TOBACCO USE Aug 12, 2015 08:48 AM CURRENT SMOKER CAREY Yates [facility] Pathology Reports: +/- 30 days of [...] SURGICAL PATHOLOGY REPORT: STEFANY MILLER [facility] LOCAL TITLE: LR SURGICAL PATHOLOGY REPORT [facility] STANDARD TITLE: PATHOLOGY REPORT DATE OF NOTE: JAN 03, 2022@10:28:01 ENTRY DATE: JAN 03, 2022@10:28:01 AUTHOR: NIURKA MILLER EXP COSIGNER: URGENCY: STATUS: COMPLETED $APHDR Reporting Lab: [facility] [CLIA# [id number]] [address] [place] [address] - - - - - - [...] automatically d ocumented from SURGERY package case #[id number] Field (#32) PRINCIPAL PRE-OP DIAGNOSIS, (#.72) OTHER [...] automatically d ocumented from SURGERY package case #[id number] Field (#34) PRINCIPAL POST-OP DIAG, (#.74) OTHER [...] Label: Lucas Meek Paperwork: Lucas Meek Cassette: [id number];..;KALYANI;.;531;[id number] Specimen is labeled: ES bx Received in formalin are several pieces of pale boyd and brown tissue, 1.2 x 0.7 cm in aggregate. Submitted entirely in 1 cassette [id number];..;KALYANI;.;252;[id number] SAW 12/15/2021 Microscopic exam: *+* MODIFIED REPORT *+* (Last modified: JAN 03, 2022@09:30:20 typed by NIURKA WADDELL) DIAGNOSIS: A. 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 Kendell long. TIARA Coombs was notified on 12/21/21. Modified on 01/03/22 to include report from [facility] stating that tumor is NEGATIVE for her2/ matheus amplification. The attending pathologist who signature mansoor ears on this report has reviewed all diagnostic slides and has edited t he gross and/or microscopic portion of this report in rendering the final pathologic diagnosis. [address] [address] CPT: [id number] /emely/ NIURKA Yeung MD Signed Jan 03, 2022@10:28 Performing Laboratory: Surgical Pathology Report Performed By: [facility] [CLIA# [id number]] [address] [place] [address] $FTR - - - - - [...] - - LUCAS MEEK STANDARD FORM 515 ID:[id number] SEX:M :1950 AGE: 71 LOC: SDM END PCP: Isatu Todd /charmaine Yeung MD Signed: 01/03/2022 10:28 Dec 21, 2021 11:46 AM LR SURGICAL PATHOLOGY REPORT: STEFANY MILLER [place] LOCAL TITLE: LR SURGICAL PATHOLOGY REPORT [facility] STANDARD TITLE: PATHOLOGY REPORT DATE OF NOTE: DEC 21, 2021@11:46:59 ENTRY DATE: DEC 21, 2021@11:46:59 AUTHOR: NIURKA MILLER EXP COSIGNER: URGENCY: STATUS: COMPLETED $APHDR Reporting Lab: [facility] [CLIA# [id number]] [address] [place] [address] - - - - - - [...] automatically d ocumented from SURGERY package case #[id number] Field (#32) PRINCIPAL PRE-OP DIAGNOSIS, (#.72) OTHER [...] automatically d ocumented from SURGERY package case #[id number] Field (#34) PRINCIPAL POST-OP DIAG, (#.74) OTHER [...] Label: Lucas Meek Paperwork: Lucas Meek Cassette: [id number];..;KALYANI;.;397;[id number] Specimen is labeled: ES bx Received in formalin are several pieces of pale boyd and brown tissue, 1.2 x 0.7 cm in aggregate. Submitted entirely in 1 cassette [id number];..;KALYANI;.;405;[id number] SAW 12/15/2021 Microscopic exam: DIAGNOSIS: A. 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 Kendell long. TIARA Coombs was notified on 12/21/21. The attending pathologist who signature mansoor ears on this report has reviewed all diagnostic slides and has edited t he gross and/or microscopic portion of this report in rendering the final pathologic diagnosis. [address] [address] CPT: [id number] /emely/ NIURKA Yeung MD Signed Dec 21, 2021@11:46 Performing Laboratory: Surgical Pathology Report Performed By: [facility] [CLIA# [id number]] [address] [place] [address] $FTR - - - - - [...] - - LUCAS MEEK STANDARD FORM 515 ID:[id number] SEX:M :1950 AGE: 71 LOC: SDM END PCP: Isatu Todd /emely/ NIURKA Yeung MD Signed: 12/21/2021 11:46 Encounter Notes: All associated encounter notes This section contains the clinical notes associated to the Encounter. Date/Time Encounter Note(s) Provider Source Jan 18, 2022 01:08 PM NUTRITION ADMINISTRATIVE NOTE: CAIT SANTACRUZ [place] LOCAL TITLE: Nutrition Administrative Note [facility] STANDARD TITLE: NUTRITION ADMINISTRATIVE NOTE DATE OF NOTE: JAN 18, 2022@13:08 ENTRY DATE: JAN 18, 2022@13:08:56 AUTHOR: CONY SANTACRUZ EXP COSIGNER: URGENCY: STATUS: COMPLETED The pt is receiving cancer treatment at the [facility] in [facility] The RD who covers the clinic was able to reach the pt a nd stated: I did call Pierre and speak with him this morning (cell phone service is not great at his house). He is drinking 2-3 Ensure P chay/day that you sent him. So thank you for that. Otherwise he is eating soft foods including mashed potato and gravy, pudding, hamburger, jello and ramen. He is scheduled for endoscopy and stent placement at [facility] on 01/25. Other baker his treatment plan is pending. Dr. Cameron was awaiting final patholog y and PET scan results but he may have palliative chemo soon. Weight was 108 k g on 12/29/21. His last wt in CPRS was 106.2 kg on 12/14 so the pt has been able to maintain weight. The RD will maintain contact w/ t/w a nd update as needed. /emely/ Cony Santacruz RD Clinical Dietitian Signed: 01/18/2022 13:11
--- OUTSIDE RECORDS SUMMARY | 2022-01-19 09:30 | XMS_ITS | Continuity of Care Document ---
:1950 Author Organization [facility] Address [address] [place] [address] Care Team Providers Name Role Phone Ash Durham Primary Care Physician Unavailable Allergies, Adverse Reactions, Alerts Allergen Type Severity Reaction Last Updated Verified Status No Known Allergies Allergy December 21, 2016 Y Active Medications Active Medications Medication Start Date Status lisinopril December 21, 2016 Active chlorthalidone December 21, 2016 Active losartan December 21, 2016 Active Problem List No problem information available. Procedures No known history of procedures. Reason for Referral Reason for Referral Date Referral Provider Office Contact Locat ion was Provided Relevant Diagnostic Tests and/or Laboratory Data No known relevant diagnostic tests, laboratory data, and/or discharge summary. Advance Directives Advance Directive Response Recorded Date/Time Do we have a copy on file here at [facility] [place] No J 2016 7:47pm Does patient have an Advanced Directive? No December 21, 2016 7:47pm Pt has a Living Will? No December 21, 2016 7:47p m Pt has a Power of Test Skein Winder? No December 21, 2016 7:47pm Chief Complaint and Reason for Visit Encounter Admit Date Chief Complaint Reason for Visit Departed Emergency December 21, 2016 7:36pm ALLERGIC REACTION Hospital Discharge Instructions Additional Discharge Instructions You have angioedema most likely caused by lisinopril. Lisinopril is an BLADE inhibitor. You should never take an BLADE inh ibitor again in the future. Continue to use cool water and ice to try to keep the swelling down an d this should resolve on its own. There [facility] no [facility]. If you are getting mor e short of breath you should be rechecked. No Instructions/Education Provided Hospital Discharge Medications Medication Dose Units Route Sig Qty Days Order Date Status In structions lisinopril December 21, 2016 Active chlorthalidone December 21, 2016 Act azar losartan December 21, 2016 Active Encounters Encounter Facility Location Admit/Visit Discharge/Departure Atte nding Date Date Provider Departed [facility] Emergency December 21, 2016 December 21, 2016 8:29pm [facility] Department 7:36pm Functional Status No known functional status. Immunizations No known immunizations. Payers Payer Name Policy Type Covered Covered Relationship Subscriber Sub scriber Id Republican Republican Id MEDICARE Medicare LUCAS [id number] Self/Same as LUCAS [id number] PART A AND B Primary [employer] Patient [employer] SELF PAY Personal Plan of Care No Known Plan of Care Information Social History Query Response Start Date Stop Date Smoking Status Former smoker Vital Signs Vital Reading Result Reference Range Collection Date/ Time Height n/a Weight 136.078 kg December 21, 2016 7:4 1pm Temperature 98.2 F 97.6 F-99.6 F December 21, 2016 7:4 1pm Pulse n/a Respiration 18 RPM 12-24 December 21, 2016 7:4 1pm Pulse Oximetry 96 % 95-100 December 21, 2016 7:4 1pm Blood Pressure Systolic 154 100-140 December 21, 2016 7:41pm Blood Pressure Diastolic 76 50-85 December 21, 2016 7:41pm Body Mass Index n/a
--- OUTSIDE RECORDS SUMMARY | 2022-01-19 09:30 | XMS_ITS | Continuity of Care Document ---
:1950 Author Organization [facility] Address [address] [place] [address] Care Team Providers Name Role Phone Juan Jsoe Livingston Primary Care Physician Helene Griffin Attending Physician Allergies, Adverse Reactions, Alerts No known allergies. Medications Active Medications Medication Dose Units Route Sig Qty Days Start Date St atus Doxycycline Hyclate 100 MG ORAL TWICE A DAY 06 04April 27, 2020 Active Discontinued Medications Medication Dose Units Route Sig Qty Days Start Discontinued Status Date Date Fluzone HighDose Quad 20-21 PF (flu vacc [id number](66y r up)-PF) 240 mcg/0.7 mL 0.7 ML INTRAMUSCULAR ONCE 0.7 AprilApril 27 ontinued IM syringe 2019 Problem List Active Problems Medical Problem Onset Date Status Fever, unknown origin Active Sepsis Active Procedures Procedure Date Status Chest 1 vw April 29, 2020 completed INTERFACE ELECTROCARDIOGRAM April 29, 2020 completed ED US ECHO Transthoracic April 29, 2020 completed Blood Culture April 29, [address] Chest Abd Pel w/ Contrast April 16, 2020 completed US Abdomen (Limited) April 16, 2020 completed Blood Culture April 15, 2020 completed Chest 1 vw April 14, 2020 completed Drainage of Spinal Canal, Percutaneous Approach, April 14, 2020 active Diagnostic INTERFACE ELECTROCARDIOGRAM April 14, 2020 completed Urine [...] Result Comment Range White Blood Count April 29 8.14 1000/mm3 4.8-10.8 2019 10:00am Red Blood Count April 29 5.63 M/mm3 4.70-6.0 2019 10:00am 0 Hemoglobin April 29, 16.7 g/dL 14.0-18. 2020 10:00am 0 Hematocrit April 29, 50.1 % 42-52 2019 10:00am Mean Corpuscular April 29, 89.0 fL 80.0-94. Volume 2019 10:00am 0 Mean Corpuscular April 29, 29.7 pg 27-31 Hemoglobin 2019 10:00am Mean Corpuscular April 29, 33.3 g/dL 33-37 Hemoglobin Concent 2019 10:00am Red Cell April 29, 14.5 % 11.5-14. Distribution Width 2019 10:00am 5 Platelet Count April 29, 102 1000/mm3 Low 883-773 2013 10:00am Mean Platelet April 29, 12.1 fL High 7.4-10.4 Volume 2019 10:00am Neutrophils (%) April 29, 78.9 % High 40.0-72. (Auto) 2019 10:00am 0 Lymphocytes (%) April 29, 14.1 % Low 17-45 (Auto) 2019 10:00am Monocytes (%) April 29, 6.4 % 3-11 (Auto) 2019 10:00am Eosinophils (%) April 29, 0.0 % 0-3 (Auto) 2019 10:00am Basophils (%) April 29, 0.2 % 0-1 (Auto) 2019 10:00am Immature April 29, 0.4 % 0-1 Granulocyte % 2019 10:00am (Auto) Neutrophils # April 29, 6.42 1000/mm3 1.4-6.5 (Auto) 2020 10:00am Lymphocytes # April 29, 1.15 1000/mm3 Low 1.2-3.4 (Auto) 2019 10:00am Monocytes # (Auto) April 29, 0.52 1000/mm3 0.0-0.8 2019 10:00am Eosinophils # April 29, 0.00 1000/mm3 0.0-0.7 (Auto) 2019 10:00am Basophils # (Auto) April 29, 0.02 1000/mm3 0.0-0.1 2019 10:00am Absolute Immature April 29, 0.0 0-1 Granulocyte (auto 2020 10:00am Differential Method April 29, Automated 2019 10:00am Platelet Estimate April 15, Clumped, 2019 6:12am unavailable Platelet Clumps, April 15, 2+ EDTA 2019 6:12am Differential April 16, See comments Mild lyhm phopenia and new onset thrombocytopenia. Laboratory data reviewed. Suggest consideration with hepatitis viral serologies and further image analysis(CT of abdomen) if clinically indicated. Pathologist's 2019 7:01am Smear revi ewed by pathologist for quality internship. Review Kaushik Feliz MD 04/16/20 Erythrocyte April 15, 2 mm/hr 0-30 Sedimentation Rate 2019 9:45pm [...] rapid immunochromato graphic assay. Test Performed by: [place] [address] Home Aid: Ford Hector M.D. Ph.D.; CLIA# [id number] Urine Legionella April 14, Negative Presump tive [...] rapid immunochromato graphic assay. Test Performed by: [place] [address] Home Aid: Ford Hector M.D. Ph.D.; IA# [id number] Sodium Level April 29, 136 mmol/L Low 983-235 7940 10:00am Potassium Level April 29, 4.5 mmol/L 3.6-5.0 2019 10:00am Chloride Level April 29, 100 mmol/L 98-107 2019 10:00am Carbon Dioxide April 29, 19 mmol/L Low 22-30 Level 2019 10:00am Anion Gap April 29 High 7-16 2019 10:00am Blood Urea Nitrogen April 29, 25 mg/dL -2019 10:00am Creatinine April 29, 1.14 mg/dL 0.66-1.2 2019 10:00am 5 Glomerular April 29, > 60 mL/min 60.0- Filtration Rate 2019 10:00am Calc Glucose Level April 29, 121 mg/dL High 70-100 2019 10:00am Calcium Level April 29, 8.9 mg/dL 8.4-10.2 2019 10:00am Calcium Adjusted April 29, 9.1 mg/dL 8.4-10.2 for Albumin 2020 03:00am Phosphorus Level April 14, 2.8 mg/dL 2.5-4.5 2019 12:00am Magnesium Level April 14, 1.9 mg/dL 1.6-2.3 2019 12:00am Total Bilirubin April 29, 1.9 mg/dL High 0.2-1.3 2019 10:00am Direct Bilirubin April 15, 0.0 mg/dL 0-0.3 2019 9:45pm Aspartate Amino April 29, 121 U/L High 17-59 Transf (AST/SGOT) 2019 10:00am Alanine April 29, 77 U/L High As of 10/17/19 , the Reference Range for ALT/SGPT for adult patients has been updated. Aminotransferase 2019 10:00am The Re ference Range for ALT/SGPT has not been established for patients <18 years of age. (ALT/SGPT) Lactic Acid Level April 29, 5.7 mmol/L High 0.7-2.1 2019 2:17pm Lactate April 23, 831 U/L High 313-618 Note: LDH act ivity can Dehydrogenase 2019 9:54am be decreas ed upon refrigerated o r frozen storage. Creatine Kinase April 18, 667 U/L High 55-170 2019 6:21am Troponin I April 29, 0.038 ng/mL High 0-0.034 Reference R heather: <0.034 ng/mL 2019 10:00am AMI Cut-off 0.120 ng/mL The result s of this assay can be falsely decreased in patients who consume Biotin. Total Protein April 29, 8.3 g/dL High 6.3-8.2 2019 10:00am Albumin April 29, 4.0 g/dL 3.5-5.0 2019 10:00am Cholesterol Level April 14, 232 mg/dL High 59-199 2019 12:00 HDL Cholesterol April 14, 29 mg/dL Low 40-60 The [employer]in [employer] Cholesterol Education Program (NCEP) has set the following guidelines (reference values) for cholesterol, HDL: 2019 12:00am Low HDL: <40 mg/dL Normal: 40-60 mg/dL Desirable: >60 mg/dL LDL Cholesterol April 14, 182.6 mg/dL High 0-129 2020 05:00 VLDL Cholesterol April 14, 20.4 mg/dL 0-32 2019 12:00 Cholesterol/HDL April 14, 8.00 High 0-3.9 Ratio 2019 12:00am Triglycerides Level April 14, 102 mg/dL 0-149 2019 12:00am Alkaline April 29, 181 U/L High 38-126 Phosphatase 2019 10:00am Thyroid Stimulating April 14, 1.73 mlU/L 0.47-4.6 The results of this Hormone (TSH) 2019 12:00am 8 assay can be falsely decreased in p atients who consume Bi otin. Hemoglobin A1c April 13 5.08 % <5.7%: No rmal Percent 2019 [...] 13, Negative Syncytial Virus 2019 7:30pm (RT-PCR SARS-CoV-2 RNA April 29, Negative This carlos t is only for (RT-PCR) 2019 11:55am use under e Food and Drug Administr [facility] Emergency Use Authorization (EUA). Herpes Simplex April 13, Negative Virus I DNA (PCR) 2019 9:45pm Herpes Simplex April 13, Negative Virus II DNA (PCR) 2019 9:45pm Varicella-Zoster April 13, Not Reportable Specimen Descript 2019 9:45pm Varicella-Zoster April 13, Negative Virus DNA (PCR) 2019 9:45pm CSF Enterovirus April 13, TNP Test not performed (PCR) 2019 9:45pm Results not a vailable due to reference lab testing / data retrieval issues. Coronavirus 2018April 13, Negative This te st has not [...] epidemiologica l information. Performed on t he [employer] [place] Fusion instrument Reference Lab Test April 13, [place] [address] ease indicate the Triage Tier1 Performing Site 2019 7:13pm lab Test per formed or referred by The [address] [address] Varicella-Zoster April 13, TNP Test no t performed IgG Antibody 2019 6:45pm Results not available due to reference lab testing / data retrieval issues. CSF Appearance April 13, Clear 2019 9:45pm CSF Color April 13, Colorless 2019 9:45pm CSF Volume April 13, [...] 13, 70 mg/dL High 12-60 2019 9:45pm Babesia microti DNA April 15, Negative (PCR) 2019 8:00am Babesia duncani DNA April 15, Negative (PCR) 2019 8:00am Babesia April 15, Negative ------ADDITIONAL INFORMATION divergens/MO-1 2019 8:00am This test was developed and its performance characteristics (PCR) determined by [facility] in a manner consistent with CLIA requirements. This test has not been cleared or approved by the U.S. Food and Drug Administration. Anaplasma April 15, Positive High phagocytophila DNA 2019 8:00am (PCR) Ehrlichia April 15, Negative chaffeensis DNA 2019 8:00am (PCR) Ehrlichia April 15, Negative ewingii/canis (PCR) 2019 8:00am Ehrlichia April 15, Negative ------ADDITIONAL INFORMATION muris-like DNA 2019 8:00am This test was developed and its performance characteristics (PCR) determined by [facility] in a manner consistent with CLIA requirements. This test has not been cleared or approved by the U.S. Food and Drug Administration. Borrelia miyamotoi April 15, Negative ----- ADDITIONAL INFORMATION (PCR) 2019 8:00am This test was developed and its performance characteristics determined by [facility] in a manner consistent with CLIA requirements. This test has not been cleared or approved by the U.S. Food and Drug Administration. Test Performed by: [facility] [address], [place] [address] Home Aid: Ford Hector M.D. Ph.D.; CLIA# [id number] Urine Methadone April 13, Negative ng/mL Screen 2019 8:27pm Venous Blood pH April 29, 7.41 pH 7.31-7.4 2019 10:00am 1 Venous Blood pCO2 April 29, 28 mmHg Low 41-51 at Patient Temp 2019 10:00am Venous Blood HCO3 April 29, 17.5 mmol/L Low 23-30 2019 10:00am Venous Blood Base April 29, -7.0 mmol/L Low -2.0-2.0 Excess 2019 10:00am Microbiology Results Procedure Source Result Collection Date/Time [...] have a copy on file here at [facility] [place]? No O ct2019 9:44pm Does patient have an Advanced Directive? No April 13, 2020 9:44pm Pt has a Living Will? No April 13, 2020 9 :44pm Pt has a Power of Cath Lab? No April 13, 2020 9:44pm Chief Complaint and Reason for Visit Encounter Admit Date Chief Complaint Reason for Visit Departed Clinical April 23, 2020 9:44am Lab Hospital Discharge Instructions No known hospital discharge instructions. Hospital Discharge Medications Medication Dose Units Route Sig Qty Days Order Status Instru ctions Date Fluzone 0.7 ML INTRAMUSCULA ONCE 0.24 April Disconti nued HighDose R 2019 Quad 20-21 PF (flu vacc [id number](65 yr up)-PF) 240 mcg/0.7 mL Doxycycline 100 MG ORAL TWICE April Active Hyclate A DAY 2019 Encounters Encounter Facility Location Admit/Visit Discharge/Departure Atte nding Date Date Provider Admitted Sav Steiner April 29, [facility] 2019 5:27pm Ashly Departed [facility] April 27April 27, 2020 Maryann lopez, [facility] 2019 2:12pm 3:18pm Kristian eric Office Visit Departed [facility] Laboratory April 23April 23, 2020 Nayan rojas, [facility] Center 2019 9:44am 9:45am Helene Registered [facility] Lifestyle April 21, [place], [facility] Medicine 2019 1:40pm Anisa Discharged [facility] Obdulia April 14April 19, 2020 Jet moulton [facility] Center Care Unit 2019 5:55am 12:11pm Helene Registered [facility] Hospitalists April 14 Reta, [facility] 2019 3:32am Isai Family History Query Response Instance Date Recorded Comment Family History Noncontributory April 14, 2020 5:59am Unable to Obtain Functional Status Query Response Date Recorded Comment Comprehension Ability Understands Concepts April 29, 2020 11: 35am Speech Appropriate April 14, 2020 3:44am Clear Query Response Date Recorded Comment Ambulation Ability Independent April 27, 2020 2:50pm Clothing Mgt Ability Independent April 14, 2020 3:44am Feeding Ability Independent April 14, 2020 3:44am Hygiene & Grooming Ability Independent April 14, 2020 3:44 am Oral Hygiene Ability Independent April 14, 2020 3:44am Toileting Ability Moderate Assistance April 14, 2020 3:44am Immunizations Immunization Name Date Given Type Influenza High Dose Quad April 27, 2020 Administered Plan of Care No Known Plan of Care Information Social History Query Response Date Recorded Comment Alcohol Use No April 29, 2020 12:15pm Smoking Status Never smoker April 29, 2020 12:15pm Substance/Street Drug Use No April 29, 2020 12:1 5pm alcohol intake frequency holidays/special occasions April 29, 2020 12:15pm only substance use type does not use April 29, 2020 12:15pm Query Response Start Date Stop Date Smoking Status Never smoker Vital Signs Vital Reading Result Reference Range Collection Date/ Time Height 5 ft 11 in April 29 0 9:26am Weight 104.326 kg April 29 0 9:26am Temperature 98.7 F 97.6 F-99.6 F April 29 0 4:36pm Pulse 105 BPM 60-100 April 29 0 4:36pm Respiration 18 RPM 12-April 29 0 4:36pm Pulse Oximetry 97 % 95-100 April 29 0 4:36pm Blood Pressure Systolic 112 100-140 April 29, 2020 4:36pm Blood Pressure Diastolic 76 50-85 [facility] 2019 4:36pm Body Mass Index 33.9 April 27 0 2:23pm
--- OUTSIDE RECORDS SUMMARY | 2022-01-19 09:30 | XMS_ITS | Continuity of Care Document ---
:1950 Author Organization [facility] Address [address] [place] [address] Care Team Providers Name Role Phone Juan Jose Livingston Primary Care Physician Helene Griffin Attending [...] Result Comment Range White Blood Count April 23, 8.24 1000/mm3 4.8-10.8 2019 9:54am Red Blood Count April 23, 5.30 M/mm3 4.70-6.0 2019 9:54am 0 Hemoglobin April 23, 15.7 g/dL 14.0-18. 2019 9:54am 0 Hematocrit April 23, 47.0 % 42-52 2019 9:54am Mean Corpuscular April 23, 88.7 fL 80.0-94. Volume 2019 9:54am 0 Mean Corpuscular April 23, 29.6 pg 27-31 Hemoglobin 2019 9:54am Mean Corpuscular April 23, 33.4 g/dL 33-37 Hemoglobin Concent 2019 9:54am Red Cell April 23, 14.3 % 11.5-14. Distribution Width 2019 9:54am 5 Platelet Count April 23, 316 1000/mm3 175-512 8710 9:54am Mean Platelet April 23, 10.9 fL High 7.4-10.4 Volume 2019 9:54am Neutrophils (%) April 16, 81.2 % High [...] Immature April 16, 0.0 0-1 Granulocyte (auto 2020 7:01am Differential Method April 16, Automated 2019 [...] Smear revi ewed by pathologist for quality assurance manager. Review Kaushik Feliz MD 04/16/20 Erythrocyte April 15, 2 mm/hr 0- Sedimentation Rate 2019 9:45pm Urine RBC April 13, 0-2 /hpf 2019 8:27pm Urine WBC April 13, None seen /hpf 2019 8:27pm Urine Bacteria April 13, None seen /hpf 2019 8:27pm Urine Mucus April 132019 8:27pm Ur Streptococcus April 14, Negative Presump [...] rapid immunochromato graphic assay. Test Performed by: [place] [address] Residential Mental Health Worker: Ford Hector M.D. Ph.D.; CLIA# [id number] Urine Legionella April 14, Negative Presump tive [...] rapid immunochromato graphic assay. Test Performed by: [place] [address] Residential Mental Health Worker: Ford Hector M.D. Ph.D.; CLIA# [id number] Sodium Level April 23, 137 mmol/L 142-342 9262 9:54am Potassium Level April 23, 4.9 mmol/L 3.6-5.0 2019 9:54am Chloride Level April 23, 105 mmol/L 98-107 2019 9:54am Carbon Dioxide April 23, 23 mmol/L 22-30 Level 2019 9:54am Anion Gap April 23, 7-16 2019 9:54am Blood Urea Nitrogen April 23, 13 mg/dL 02-10 9:54am Creatinine April 23, 0.68 mg/dL 0.66-1.2 2019 9:54am 5 Glomerular April 23, > 60 mL/min 60.0- Filtration Rate 2019 9:54am Calc Glucose Level April 23, 115 mg/dL High 70-100 2019 9:54am Calcium Level April 23, 9.1 mg/dL 8.4-10.2 2019 9:54am Calcium Adjusted April 23, 9.3 mg/dL 8.4-10.2 for Albumin 2019 9:54am Phosphorus Level April 14, 2.8 mg/dL 2.5-4.5 2019 12:00am Magnesium Level April 14, 1.9 mg/dL 1.6-2.3 2019 12:00am Total Bilirubin April 23, 0.9 mg/dL 0.2-1.3 2019 9:54am Direct Bilirubin April 15, 0.0 mg/dL 0-0.3 2019 9:45pm Aspartate Amino April 23, 122 U/L High 17-59 Transf (AST/SGOT) 2019 9:54am Alanine April 23, 163 U/L High As of 10/17/19, the Reference Range for ALT/SGPT for adult patients has been updated. Aminotransferase 2019 9:54am The Ref erence Range for ALT/SGPT has not been established for patients <18 years of age. (ALT/SGPT) Lactic Acid Level April 16, 3.6 mmol/L High 0.7-2.1 2019 7:01am Lactate April 23, 831 U/L High 313-618 Note: LDH act ivity can Dehydrogenase 2019 9:54am be decreas ed upon refrigerated o r frozen storage. Creatine Kinase April 18, 667 U/L High 55-170 2019 6:21am Total Protein April 23, 7.5 g/dL 6.3-8.2 2019 9:54am Albumin April 23, 4.0 g/dL 3.5-5.0 2019 9:54am Cholesterol Level April 14, 232 mg/dL High [...] 102 mg/dL 0-149 2019 12:00am Alkaline April 23, 214 U/L High 38-126 Phosphatase 2019 9:54am Thyroid Stimulating April 14, 1.73 mlU/L 0.47-4.6 [...] only for detection of nucleic acid from 2018-, not for any other viruses or pathogens. [...] epidemiologica l information. Performed on t he [employer] [place] Fusion instrument Reference Lab Test April 13, [place] [address] ease indicate the Triage Tier1 Performing Site 2019 7:13pm lab Test per formed or referred by The [address] [address] CSF Appearance April 13 Clear 2019 9:45pm [...] and its performance characteristics (PCR) determined by [facility] in a manner consistent with CLIA requirements. [...] and its performance characteristics (PCR) determined by [facility] in a manner consistent with CLIA requirements. This test has not been cleared or approved by the U.S. Food and Drug Administration. Borrelia miyamotoi April 15, Negative ----- ADDITIONAL INFORMATION (PCR) 2019 8:00am This test was developed and its performance characteristics determined by [facility] in a manner consistent with CLIA requirements. This test has not been cleared or approved by the U.S. Food and Drug Administration. Test Performed by: [facility] [address] [place] [address] Residential Mental Health Worker: Ford Hector M.D. Ph.D.; CLIA# [id number] Urine Methadone April 13, Negative ng/mL Screen 2019 8:27pm Venous Blood pH April 13, 7.43 pH High 7.31-7.4 2019 6:45pm 1 Venous Blood pCO2 April 13, 39 mmHg Low 41-51 at Patient Temp 2019 6:45pm Venous Blood HCO3 April 13, 25.8 mmol/L 23-30 2019 6:45pm Venous Blood Base April 13, 1.0 mmol/L -2.0-2.0 Excess 2019 6:45pm Microbiology [...] have a copy on file here at [facility] [place]? No O ctober 2019 9:44pm Does patient have an Advanced Directive? No April 13, 2020 9:44pm Pt has a Living Will? No April 13, 2020 9 :44pm Pt has a Power of Bone Grinder? No April 13, 2020 9:44pm Chief Complaint and Reason for Visit Encounter Admit Date Chief Complaint Reason for Visit Departed Clinical April 23, 2020 9:44am Lab Hospital Discharge Instructions No known hospital discharge instructions. Encounters Encounter Facility Location Admit/Visit Discharge/Departure Atte nding Date Date Provider Departed [facility] April 23April 23, 2020 Nayan rojas [facility] 2019 9:44am 9:45am Helene Registered [facility] Lifestyle April 21, [place], [facility] Medicine 2019 1:40pm Anisa Discharged [facility] April 14April 19, 2020 Jet moulton [facility] 2019 5:55am 12:11pm Helene Joe [facility] Hospitalists April 14 Reta [facility] 2019 3:32am Isai Family History [...] April 19, 2020 9:37am Respiration 19 RPM 12-April 19, 2020 9:37am Pulse Oximetry 97 % 95-100 April 19, 2020 9:37am Blood Pressure Systolic 148 100-140 April 19, 2020 9:37am Blood Pressure Diastolic 84 50-85 [facility] 2019 9:37am Body Mass Index 33.7 April 14, 2020 2:41pm
--- OUTSIDE RECORDS SUMMARY | 2022-01-19 09:30 | XMS_ITS | Continuity of Care Document ---
:1950 Author Organization [facility] Address [address] [place] [address] Care Team Providers Name Role Phone Juan [...] Fluzone HighDose Quad 20-21 PF (flu vacc [id number](65y r up)-PF) 240 mcg/0.7 mL 0.7 ML INTRAMUSCULAR ONCE 0.7 AprilApril 27 ontinued IM syringe 2019 Problem List Active Problems Medical Problem Onset Date Status Acute kidney injury Active Elevated LFTs Active Fever, unknown origin Active Sepsis Active Anaplasmosis Active Procedures Procedure Date Status Chest 1 [...] Platelet Count April 29, 102 1000/mm3 Low 501-550 2632 10:00am Mean Platelet April 29, 12.1 fL [...] # April 29, 6.42 1000/mm3 1.4-6.5 (Auto) 2019 10:00am Lymphocytes # April 29, 1.15 1000/mm3 [...] revi ewed by pathologist for quality assurance monitor body. Review Kaushik Feliz MD 04/16/20 Erythrocyte April 15, 2 mm/hr 0-30 Sedimentation Rate 2019 9:45pm Prothrombin Time April 30, 12.6 SECONDS High 9.6-11.2 2019 6:20am Prothromb Time April 30, 1.2 Low 2.0-3.0 INR valu e valid only on International Ratio 2019 6:20am marilyn ents on stabilized warfarin thera py. The recommended th erapeutic range for warf sayra (Coumadin) for most clinical indic ations is an INR of 2.0- 3.0. An INR of 2.5-3.5 is recommended fo r patients with mechanica l heart valves. Urine RBC April 13, 0-2 /hpf 2019 [...] rapid immunochromato graphic assay. Test Performed by: [facility] [address] [place] [address] Financial Quantitative Analyst: Ford Hector M.D. Ph.D.; CLIA# [id number] Urine Legionella April 14, Negative Presump tive [...] rapid immunochromato graphic assay. Test Performed by: [facility] [address] [place] [address] Financial Quantitative Analyst: Ford Hector M.D. Ph.D.; CLIA# [id number] Sodium Level April 30, 136 mmol/L Low 339-139 5736 6:25am Potassium Level April 30, 4.0 mmol/L 3.6-5.0 2019 6:25am Chloride Level April 30, 107 mmol/L 98-107 2019 6:25am Carbon Dioxide April 30, 24 mmol/L 22-30 Level 2019 6:25am Anion Gap April 30, 5 Low 7-16 2019 6:25am Blood Urea Nitrogen April 30, 18 mg/dL 8-2019 6:25am Creatinine April 30, 0.64 mg/dL Low 0.66-1.2 2019 6:25am 5 Glomerular April 30, > 60 mL/min 60.0- Filtration Rate 2019 6:25am Calc Glucose Level April 30, 76 mg/dL 70-100 2019 6:25am Calcium Level April 30, 7.6 mg/dL Low 8.4-10.2 Delta: 8. 9 on 2019 6:25am 04/29/20-1000 Calcium Adjusted April 30, 9.1 mg/dL 8.4-10.2 for Albumin 2019 6:25am Phosphorus Level April 14, 2.8 mg/dL 2.5-4.5 2019 12:00am Magnesium Level April 30, 2.2 mg/dL 1.6-2.3 2019 6:25am Total Bilirubin April 30, 1.2 mg/dL 0.2-1.3 2019 6:25am Direct Bilirubin April 15, 0.0 mg/dL 0-0.3 2019 9:45pm Aspartate Amino April 30, 127 U/L High 17-59 Transf (AST/SGOT) 2019 6:25am Alanine April 30, 69 U/L High As of 10/17/19 , the Reference Range for ALT/SGPT for adult patients has been updated. Aminotransferase 2019 6:25am The Ref erence Range for ALT/SGPT has not been established for patients <18 years of age. (ALT/SGPT) Lactic Acid Level April 30, 4.0 mmol/L High 0.7-2.1 2019 11:18am Lactate April 23, 831 U/L High 313-618 Note: LDH act ivity can Dehydrogenase 2019 9:54am be decreas ed upon refrigerated o r frozen storage. Creatine Kinase April 18, 667 U/L High 55-170 2019 6:21am Troponin I April 29, 0.031 ng/mL 0-0.034 Reference R heather: <0.034 ng/mL 2019 6:45pm AMI Cut-off 0.120 ng/mL The result s of this assay can be falsely decreased in patients who consume Biotin. Total Protein April 30, 5.6 g/dL Low 6.3-8.2 2019 6:25am Albumin April 30, 2.4 g/dL Low 3.5-5.0 2019 6:25am Cholesterol Level April 14, 232 mg/dL High 59-199 2019 12:00am HDL Cholesterol April 14, 29 mg/dL Low 40-60 [facility] onar Cholesterol Education Program (NCEP) has set the [...] 102 mg/dL 0-149 2019 12:00am Alkaline April 30, 112 U/L 38-126 Phosphatase 2019 6:25am Thyroid Stimulating April 14, 1.73 mlU/L 0.47-4.6 [...] only for (RT-PCR) 2019 11:55am use under [facility] Food and Drug Administr [facility] Use Authorization (EUA). Herpes Simplex April [...] only for detection of nucleic acid from 2018-nCoV, not for any other viruses or pathogens. [...] epidemiologica l information. Performed on t he H[employer] Fusion instrument Reference Lab Test April 13, [address] ease indicate the Triage Tier1 Performing Site 2019 7:13pm lab Test per formed [place] [address] Varicella-Zoster April 13, TNP Test no t performed IgG Antibody 2019 6:45pm Results not available due to reference lab testing / data retrieval issues. CSF Appearance April 13 Clear 2019 9:45pm [...] and its performance characteristics (PCR) determined by [facility] in a manner consistent with CLIA requirements. [...] and its performance characteristics (PCR) determined by [facility] in a manner consistent with CLIA requirements. This test has not been cleared or approved by the U.S. Food and Drug Administration. Borrelia miyamotoi April 15, Negative ----- ADDITIONAL INFORMATION (PCR) 2019 8:00am This test was developed and its performance characteristics determined by [facility] in a manner consistent with CLIA requirements. This test has not been cleared or approved by the U.S. Food and Drug Administration. Test Performed by: [facility] [address] [place] [address] Financial Quantitative Analyst: Ford Hector M.D. Ph.D.; CLIA# [id number] Urine Methadone April 13, Negative ng/mL Screen [...] have a copy on file here at [facility]? No O ct2019 9:44pm Does patient have an Advanced Directive? No April 13, 2020 9:44pm Pt has a Living Will? No April 13, 2020 9 :44pm Pt has a Power of Electrical Subcontractor? No April 13, 2020 9:44pm Chief Complaint and Reason for Visit Encounter Admit Date Chief Complaint Reason for Visit Departed Clinical April 23, 2020 9:44am Lab Hospital Discharge Instructions No known hospital discharge instructions. Hospital Discharge Medications Medication Dose Units Route Sig Qty Days Order Status Instru ctions Date Fluzone 0.7 ML INTRAMUSCULA ONCE 0.7 November Disconti nued HighDose R 2019 Quad 20-21 PF (flu vacc [id number](65 yr up)-PF) 240 mcg/0.7 mL Doxycycline 100 MG ORAL TWICE April Active Hyclate A DAY 2019 Encounters Encounter Facility Location Admit/Visit Discharge/Departure Atte nding Date Date Provider Registered [facility] April 29 Alexandra[facility] 8:08pm [facility] Maryann lopez, Phys[facility] 2019 2:12pm 3:18pm Kristian eric Office Visit Departed [facility] April 23April 23, 2020 [address]ayan [address] [facility] Center 2019 9:44am 9:45am Helene Registered [facility] Lifestyle April 21, [facility] Medicine 2019 1:40pm Anisa Discharged [facility] April 14April 19, 2020 Jte moul[facility] Unit 2019 5:55am 12:11pm Helene [facility] April 14 [facility] 2019 3:32am Isai Family History Query Response Instance Date Recorded Comment Family History Noncontributory April 14, 2020 5:59am Unable to Obtain Functional Status Query Response Date Recorded Comment Comprehension Ability Understands Concepts April 30, 2020 7:5 6am Speech Appropriate April 29, 2020 6:15pm Query Response Date Recorded Comment Ambulation Ability Independent April 29, 2020 8:17pm Standby Only Clothing Mgt Ability Independent April 29, 2020 6:15pm Feeding Ability Independent April 29, 2020 6:15pm Hygiene & Grooming Ability Independent April 29, 2020 6:1 5pm Living Situation With Roommate April 29, 2020 8:17pm Oral Hygiene Ability Independent April 29, 2020 6:15pm Toileting Ability Independent April 29, 2020 6:15pm Immunizations Immunization Name Date Given Type Influenza High Dose Quad April 27, 2020 Administered Plan of Care No Known Plan of Care Information Social History Query Response Date Recorded Comment Alcohol Use Yes April 29, 2020 8:17pm Smoking Status Never smoker April 29, 2020 8:17pm Substance/Street Drug Use No April 29, 2020 8:17 pm alcohol intake frequency holidays/special occasions April 29, 2020 8:17pm only substance use type does not use April 29, 2020 6:15pm Query Response Start Date Stop Date Smoking Status Never smoker Vital Signs Vital Reading Result Reference Range Collection Date/ Time Height 5 ft 11 in April 29 0 9:26am Weight 104 kg April 29 0 6:15pm Temperature 97.5 F 97.6 F-99.6 F April 30 0 3:31pm Pulse 92 BPM 60-100 April 30 0 3:31pm Respiration 20 RPM 12-24 April 30 0 3:31pm Pulse Oximetry 99 % 95-100 April 30 0 3:31pm Blood Pressure Systolic 116 100-140 April 30, 2020 3:31pm Blood Pressure Diastolic 72 50-85 Novembe 2019 3:31pm Body Mass Index 33.9 April 27 0 2:23pm
--- OUTSIDE RECORDS SUMMARY | 2022-01-19 09:30 | XMS_ITS | Continuity of Care Document ---
:1950 Author Organization [facility] Address [address] [place] [address] Phone Care Team Providers Name Role Phone RetaRinIsai Admit Provider Helene Griffin Attending Provider Juan Jose Livingston Primary Care Provider Allergies, Adverse Reactions, Alerts No known allergies. Medications Medication Status Dose Units Route Directions Qty Days Start End Ins tructions Date Date Fluzone Discontin 0.7 ML IM ONCE 0.7 April HighDose ued 10th, er Quad -2019 10th, PF (flu vacc 2:12pm 2019 [id number](65 3:17pm yr up)-PF) 240 mcg/0.7 mL Doxycycline Active 100 MG PO TWICE A DAY April Hyclate 2019 3:02pm Problems Active Problems Medical Problem Onset Date Status HLD (hyperlipidemia) Active Anaplasmosis Active Procedures Procedure Date Performed Status CT Head w/o Contrast April 13, 2020 5:18pm completed INTERFACE ELECTROCARDIOGRAM April 13, 2020 5:20pm comple jaguar Chest 1 vw April 13, 2020 5:39pm completed INTERFACE ELECTROCARDIOGRAM April 14, 2020 12:39am compl eted Chest 1 vw April 14, 2020 12:39am completed US Abdomen (Limited) April 16, 2020 7:00am completed CT Chest Abd Pel w/ Contrast April 16, 2020 6:57am compl eted Blood Culture April 15, 2020 completed Gram Stain April 13, 2020 completed CSF Culture April 13, 2020 completed Urine Culture April 13, 2020 completed Drainage of Spinal Canal, Percutaneous April 14, 2020 a ctive Approach, Diagnostic Relevant Diagnostic Tests and/or Laboratory Data Laboratory Results Test Date/Time Result Interpretation Reference Result Comment Performing Range Site White Blood November 8.24 4.8-10.8 MAIN LAB , [address] [place] [address] 2019 1000/mm3 [place] [address] 9:54am White Blood November 6.15 4.8-10.8 MAIN LAB , [address] [place] [address] 2019 1000/mm3 [place] [address] 6:21am Red Blood November 5.30 M/mm3 4.70-6.00 MAIN LAB, [address] [place] [address] 2019 [place] [address] 9:54am Red Blood November 4.61 M/mm3 4.70-6.00 MAIN LAB, [address] [place] [address] 2019 [place] [address] 6:21am Hemoglobin November 15.7 g/dL 14.0-18.0 MAIN LAB, [address] [place] [address] 2019 [place] [address] 9:54am Hemoglobin November 13.6 g/dL 14.0-18.0 MAIN LAB, [address] [place] [address] 2019 [place] [address] 6:21am Hematocrit November 47.0 % 42-52 MAIN LAB, [address] [place] [address] 2019 [place] [address] 9:54am Hematocrit November 40.5 % 42-52 MAIN LAB, [address] [place] [address] 2019 [place] [address] 6:21am Mean April 88.7 fL 80.0-94.0 MAIN LAB, [address] [facility] Corpuscular 2019 [place] [address] Volume 9:54am Mean April 87.9 fL 80.0-94.0 MAIN LAB, [address] [facility] Corpuscular 2019 [place] [address] Volume 6:21am Mean April 29.6 pg 27-31 MAIN LAB, [address] [facility] Corpuscular 2019 [place] [address] Hemoglobin 9:54am Mean April 29.5 pg 27-31 MAIN LAB, [address] [facility] Corpuscular 2019 [place] [address] Hemoglobin 6:21am Mean April 33.4 g/dL 33-37 MAIN LAB, [address] [place] [address] Corpuscular 2019 [place] [address] Hemoglobin 9:54am Concent Mean April 33.6 g/dL 33-37 MAIN LAB, [address] [place] [address] Corpuscular 2019 [place] [address] Hemoglobin 6:21am Concent Red Cell November 14.3 % 11.5-14.5 MAIN LAB, [address] [place] [address] Distributio 2019 [place] [address] n Width 9:54am Red Cell November 13.8 % 11.5-14.5 MAIN LAB, [address] [place] [address] Distributio 2019 [place] [address] n Width 6:21am Platelet April 316 1000/mm3 140-440 MAIN LA B, [address] [facility] Count 2019 [place] [address] 9:54am Platelet April 87 1000/mm3 140-440 MAIN LAB , [address] [place] [address] Count 2019 [place] [address] 6:21am Mean November 10.9 fL 7.4-10.4 MAIN LAB, [address] [place] [address] Platelet 2019 [place] [address] Volume 9:54am Mean November 12.6 fL 7.4-10.4 MAIN LAB, [address] [place] [address] Platelet 2019 [place] [address] Volume 6:21am Neutrophils October 81.2 % 40.0-72.0 MAIN LAB , [address] [place] [address] (%) (Auto) 2019 [place] [address] 6:01am Lymphocytes October 11.0 % 17-45 MAIN LAB , [address] [place] [address] (%) (Auto) 2019 [place] [address] 6:01am Monocytes October 6.9 % 3-11 MAIN LAB, [address] [place] [address] (%) (Auto) 2019 [place] [address] 6:01am Eosinophils October 0.0 % 0-3 MAIN LAB , [address] [place] [address] (%) (Auto) 2019 [place] [address] 6:01am Basophils October 0.3 % 0-1 MAIN LAB, [address] [place] [address] (%) (Auto) 2019 [place] [address] 6:01am Immature October 0.6 % 0-1 MAIN LAB, [address] [place] [address] [place] [address] % (Auto) 6:01am Neutrophils October 2.72 1.4-6.5 MAIN LAB , [address] [place] [address] # (Auto) 2019 1000/[place]3 [place] [address] 6:01am Lymphocytes October 0.37 1.2-3.4 MAIN LAB , [address] [place] [address] # (Auto) 2019 1000/[place]3 [place] [address] 6:01am Monocytes # October 0.23 0.0-0.8 MAIN LAB , [address] [place] [address] (Auto) 2019 1000/[place] [address] 6:01am Eosinophils October 0.00 0.0-0.7 MAIN LAB , [address] [place] [address] # (Auto) 2019 1000/[place]3 [place] [address] 6:01am Basophils # October 0.01 0.0-0.1 MAIN LAB , [address] [place] [address] (Auto) 2019 1000/[place]3 [place] [address] 6:01am Absolute October 0.0 0-1 MAIN LAB, [address] [place] [address] [place] [address] Granulocyte 6:01am (auto Differentia October Automated MAIN LAB , [address] [place] [address] [place] [address] 6:01am Platelet March Clumped, MAIN LAB, [address] [facility] Estimate [address] [place] [address] 5:12am Platelet March 2+ MAIN LAB, [address] [place] [address] Clumps, 2019 [place] [address] EDTA 5:12am Differentia March See comments Mild MAIN LAB, [address] [place] [address] [place] [address] Pathologist 6:01am and new onset 's Review thrombocytopen ia. Laboratory data reviewed. Suggest consideration with hepatitis viral serologies and further image analysis(CT of abdomen) if clinically indicated.Smea r reviewed by pathologist for food quality technician.Jabari Feliz MD04/16/20 Erythrocyte March 2 mm/hr 0-30 MAIN LAB , [address] [place] [address] [place] [address] on Rate 8:45pm Urine RBC March 0-2 /hpf MAIN LAB, [address] [place] [address] [place] [address] 7:27pm Urine WBC March None seen MAIN LAB, [address] [place] [address] [address] /[place] [address] 7:27pm Urine October None seen NONE SEEN MAIN LAB, [address] [place] [address] Bacteria 2019 /[place] [address] 7:27pm Urine Mucus March Present MAIN LAB , [address] [place] [address] [place] [address] 7:27pm Ur March Negative Negative Presumptive [facility] Streptococc 2019 negative for LABO RATORIES us 10:00pm pneumococcal pneumoniae pneumonia, Antigen suggestingno current or recent infection. Infection due to S.pneumoniae cannot be ruled out since the antigen present inthe sample may be below detection limit of the test.--------- PILO TIONAL INFORMATION--- --This assay was performed using the FDA-cleared BinaxNOWStrept ococcus pneumoniae Antigen test, a rapidimmunochr omatographic assay.Test Performed by:[facility] [place] [id number] Director: Ford Hector M.D. Ph.D.; CLIA# [id number] Urine March Negative Negative Presumptive [facility] Legionella 2019 negative for LABOR ATORIES Antigen 10:00pm L. pneumophila serogroup 1antigen, suggesting no recent or current infection.Infe ction due to Legionella cannot be ruled out since otherserogroup s and species may cause disease, antigen may notbe present in urine in early infection, and the level ofantigen present in the urine may be below the detectionlimit of the test.--------- PILO TIONAL INFORMATION--- --This assay was performed using the FDA-cleared BinaxNOWLegion nakul Urinary Antigen Test, a rapidimmunochr omatographic assay.Test Performed by:[facility] [place] [id number] Director: Ford Hector M.D. Ph.D.; CLIA# [id number] Sodium April 137 mmol/L 137-145 MAIN LAB, [address] [facility] 2019 [facility] [address] 9:54am Sodium April 138 mmol/L 137-145 MAIN LAB, [address] [place] [address] 2019 [facility] [address] 6:21am Potassium April 4.9 mmol/L 3.6-5.0 MAIN LAB, [address] [place] [address] 2019 [facility] [address] 9:54am Potassium April 3.7 mmol/L 3.6-5.0 MAIN LAB, [address] [place] [address] 2019 [facility] [address] 6:21am Chloride November 105 mmol/L 98-107 MAIN LAB, [address] [place] [address] 2019 [facility] [address] 9:54am Chloride November 107 mmol/L 98-107 MAIN LAB, [address] [place] [address] 2019 [facility] [address] 6:21am Carbon November 23 mmol/L 22-30 MAIN LAB, [address] [place] [address] Dioxide 2019 [place] [address] Level 9:54am Carbon November 26 mmol/L 22-30 MAIN LAB, [address] [place] [address] Dioxide 2019 [facility] [address] Level 6:21am Anion Gap April 9 7-16 MAIN LAB, [address] [place] [address] 2019 [place] [address] 9:54am Anion Gap April 5 7-16 MAIN LAB, [address] [place] [address] 2019 [place] [address] 6:21am Blood Urea November 13 mg/dL 02-10 MAIN LAB, [address] [place] [address] Nitrogen 2019 [place] [address] 9:54am Blood Urea November 10 mg/dL 02-10 MAIN LAB, [address] [place] [address] Nitrogen 2019 [place] [address] 6:21am Creatinine November 0.68 mg/dL 0.66-1.25 MAIN LAB , [address] [place] [address] 2019 [place] [address] 9:54am Creatinine November 0.56 mg/dL 0.66-1.25 MAIN LAB , [address] [place] [address] 2019 [place] [address] 6:21am Glomerular November > 60 mL/min >60.0 MAIN LA B, [address] [place] [address] [place] [address] Rate Calc 9:54am Glomerular November > 60 mL/min >60.0 MAIN LA B, [address] [place] [address] [place] [address] Rate Calc 6:21am Glucose November 115 mg/dL 70-100 MAIN LAB, [address] [place] [address] 2019 [place] [address] 9:54am Glucose November 87 mg/dL 70-100 MAIN LAB, [address] [place] [address] 2019 [place] [address] 6:21am Calcium November 9.1 mg/dL 8.4-10.2 MAIN LAB, [address] [place] [address] 2019 [place] [address] 9:54am Calcium November 7.9 mg/dL 8.4-10.2 MAIN LAB, [address] [place] [address] Level 2019 [place] [address] 6:21am Calcium November 9.3 mg/dL 8.4-10.2 MAIN LAB, [address] [place] [address] Adjusted 2019 [place] [address] for Albumin 9:54am Calcium November 9.0 mg/dL 8.4-10.2 MAIN LAB, [address] [place] [address] Adjusted 2019 [place] [address] for Albumin 6:21am Phosphorus March 2.8 mg/dL 2.5-4.5 MAIN LAB, [address] [place] [address] Level 2019 [facility] [address] 11:00pm Magnesium March 1.9 mg/dL 1.6-2.3 MAIN LAB, [address] [place] [address] Level 2019 [facility] [address] 11:00pm Total November 0.9 mg/dL 0.2-1.3 MAIN LAB, [address] [place] [address] Bilirubin 2019 [facility] [address] 9:54am Total November 1.0 mg/dL 0.2-1.3 MAIN LAB, [address] [place] [address] Bilirubin 2019 [facility] [address] 6:21am Direct October 0.0 mg/dL 0-0.3 MAIN LAB, [address] [place] [address] Bilirubin 2019 [facility] [address] 8:45pm Aspartate April 122 U/L MAIN LAB, [address] [place] [address] Amino 2019 [facility] [address] Transf 9:54am (AST/SGOT) Aspartate April 212 U/L MAIN LAB, [address] [place] [address] Amino 2019 [facility] [address] Transf 6:21am (AST/SGOT) Alanine April 163 U/L <50 As of 10/17/19, MAIN L AB, [address] [place] [address] Aminotransf 2019 the Reference [facility] [address] erase 9:54am Range for (ALT/SGPT) ALT/SGPT for adult patients has been updated. The Reference Range for ALT/SGPT has not been established for patients <18 years of age. Alanine April 143 U/L <50 As of 10/17/19, MAIN L AB, [address] [place] [address] Aminotransf 2019 the Reference [facility] [address] erase 6:21am Range for (ALT/SGPT) ALT/SGPT for adult patients has been updated. The Reference Range for ALT/SGPT has not been established for patients <18 years of age. Lactic Acid March 3.6 mmol/L 0.7-2.1 MAIN LA B, [address] [place] [address] Level 2019 [facility] [address] 6:01am Lactate April 831 U/L 313-618 Note: LDH MAIN LAB, [address] [place] [address] [address] [place] [address] se 9:54am be decreased upon refrigerated or frozen storage. Lactate April 1103 U/L 313-618 Note: LDH MAIN LAB, [address] [facility] Dehydrogena [address] [place] [address] se 6:21am be decreased upon refrigerated or frozen storage. Creatine April 667 U/L 55-170 MAIN LAB, [address] [facility] Kinase 2019 [place] [address] 6:21am Total November 7.5 g/dL 6.3-8.2 MAIN LAB, [address] [place] [address] Protein 2019 [place] [address] 9:54am Total November 5.8 g/dL 6.3-8.2 MAIN LAB, [address] [place] [address] Protein 2019 [place] [address] 6:21am Albumin April 4.0 g/dL 3.5-5.0 MAIN LAB, [address] [place] [address] 2019 [place] [address] 9:54am Albumin April 2.9 g/dL 3.5-5.0 MAIN LAB, [address] [place] [address] 2019 [place] [address] 6:21am Cholesterol March 232 mg/dL 59-199 MAIN LAB , [address] [place] [address] [address] [place] [address] 11:00pm HDL March 29 mg/dL 40-60 The National MAIN LA B, [address] [facility] Cholesterol [address] [place] [address] 11:00pm Education Program (NCEP) has set the following guidelines (reference values) for cholesterol, HDL:Low HDL: <40 mg/dLNormal: 40-60 mg/dLDesirable : >60 mg/dL LDL March 182.6 mg/dL 0-129 MAIN LAB , [address] [facility] Cholesterol 2019 [place] [address] 11:00pm VLDL March 20.4 mg/dL 0-32 MAIN LAB, [address] [place] [address] [facility] [place] [address] 11:00pm Cholesterol March 8.00 0-3.9 MAIN LAB , [address] [place] [address] /HDL Ratio 2019 [place] [address] 11:00pm Triglycerid March 102 mg/dL 0-149 MAIN LAB , [address] [facility] es Level 2019 [place] [address] 11:00pm Alkaline April 214 U/L 38-126 MAIN LAB, [address] [place] [address] Phosphatase 2019 . [place] [address] 9:54am Alkaline April 155 U/L 38-126 MAIN LAB, [address] [place] [address] Phosphatase 2019 . [place] [address] 6:21am Thyroid March 1.73 mlU/L 0.47-4.68 The results of MAIN LAB, [address] [place] [address] Stimulating 2019 this assay can . [facility] [address] Hormone 11:00pm be falsely (TSH) decreased in patients who consume Biotin. Hemoglobin March 5.08 % <5.7 <5.7%: MAIN LAB, [address] [place] [address] A1c Percent 2019 Normal5.7%-6.4 [facility] [address] 5:45pm %: Prediabetes>=6 .5%: Diagnostic for diabetesGoals for Glycemic Control in Diabetes (ADA 2018)<7.0%: A1c target for non adults with diabetes. More or less stringent glycemic goals may be appropriate for individual patients.<7.5% : A1c target for children and adolescents with type I diabetes. A lower goal is reasonable if it can be achieved without excessive hypoglycemia. Estimated October 99 mg/dL MAIN LAB, [address] [place] [address] Average 2019 [facility] [address] Glucose 5:45pm mg/dL C-Reactive March 245.8 mg/L 5-10 MAIN LAB , [address] [place] [address] [place] [address] 8:45pm Influenza March Negative Negative MAIN LAB, [address] [place] [address] [place] [address] (RT-PCR) 6:30pm Influenza March Negative Negative MAIN LAB, [address] [place] [address] [place] [address] (RT-PCR) 6:30pm Respiratory March Negative Negative MAIN LAB , [address] [place] [address] Syncytial 2019 . [facility] [place] [address] Virus 6:30pm (RT-PCR Herpes March Negative [facility] 2019 LABORATOR IES Virus I DNA 8:45pm (PCR) Herpes March Negative [facility] 2019 LABORATOR IES Virus II 8:45pm DNA (PCR) Varicella-Z March Not [facility] tony 2019 Reportable LABORATO JULIO Specimen 8:45pm Descript Varicella-Z March Negative [facility] tony Virus 2019 LABORAT ORIES DNA (PCR) 8:45pm CSF October TNP Test not [facility] Enterovirus 2019 performedResul LA BORATORIES (PCR) 8:45pm ts not available due to reference lab testing / data retrieval issues. Coronavirus March Negative Negative This test has [facility] 2019 PCR 2019 not been FDA LABORA TORIES Interp 6:13pm cleared or approved. This testhas been authorized by FDA under an EUA for use byauthorized laboratories. This test has been authorized onlyfor detection of nucleic acid from 2019-nCoV, not for anyother viruses or pathogens. This test is only authorizedfor the duration of the declaration that circumstancese xist justifying the authorization of emergency use of invitro diagnostic tests for detection and/or diagnosis [id number] under section 564(b)(1) of Act, 21 U.S.C ?360bbb-3(b) (1), unless the authorization is terminated orrevoked sooner.Negativ e results do not preclude 2019-nCoV infection andshould not be used as the sole basis for treatment or otherpatient management decisions. Negative results must becombined with clinical observations, patient history, andepidemiolog ical information.Pe rformed on the Spider[employer] [place] Fusion instrument Reference March [place] Please [facility] Lab Test 2019 [facility] indicate the LABORA TORRASHEED Performing 6:13pm Triage Site [id number] performed or referred by[address] [address] Varicella-Z March TNP Test not [facility] tony IgG 2019 performedResul LABO RATORIES Antibody 5:45pm ts not available due to reference lab testing / data retrieval issues. CSF March Clear MAIN LAB, [address] Appearance [address] [place] [address] 8:45pm CSF Color March Colorless MAIN LAB, [address] [place] [address] 8:45pm CSF Volume March 14 mL MAIN LAB, [address] [facility] 2019 [place] [address] 8:45pm Body Fluid March 21 MAIN LAB, [address] [facility] Number of 2019 [facility] [facility] [place] [address] Tubes 8:45pm CSF WBC March 3 0-5 Cell Count MAIN LAB, [address] [place] [address] 2019 performed on . [facility] [place] [address] 8:45pm tube number 4 Cell Count performed on tube number 4 CSF RBC March 2 0-9 Cell Count MAIN LAB, [address] [place] [address] [facility] [facility] [place] [address] 8:45pm tube number 4 Cell Count performed on tube number 4 CSF Glucose March 60 mg/dL 40-70 MAIN LAB , [address] [place] [address] [facility] [place] [address] 8:45pm CSF Total March 70 mg/dL 12-60 MAIN LAB, [address] [place] [address] [place] [facility] [place] [address] 8:45pm Babesia March Negative Negative [facility] microti DNA 2019 LABORAT ORIES (PCR) 7:00am Babesia March Negative Negative [facility] duncani DNA 2019 LABORAT ORIES (PCR) 7:00am Babesia March Negative Negative [facility] divergens/M 2019 -----ADDITIONA LA BORATORIES O-1 (PCR) 7:00am L INFORMATION--- --This test was developed and its performance characteristic sdetermined by [facility] in a manner consistent with José Antonio carranza. This test has not been cleared or approved bythe U.S. Food and Drug Administration . Anaplasma March Positive Negative [facility] phagocytoph 2019 LABORAT ORIES davon DNA 7:00am (PCR) Ehrlichia March Negative Negative [facility] chaffeensis 2019 LABORAT ORIES DNA (PCR) 7:00am Ehrlichia March Negative Negative [facility] ewingii/can 2019 LABORAT ORIES is (PCR) 7:00am Ehrlichia March Negative Negative [facility] muris-like 2019 -----ADDITIONA LAB ORATORIES DNA (PCR) 7:00am L INFORMATION--- --This test was developed and its performance characteristic sdetermined by [facility] in a manner consistent with [facility] ts. This test has not been cleared or approved bythe U.S. Food and Drug Administration . Borrelia March Negative Negative [facility] 2019 -----ADDITIONA LABO RATORIES (PCR) 7:00am L INFORMATION--- --This test was developed and its performance characteristic sdetermined by [facility] in a manner consistent with [facility] ts. This test has not been cleared or approved bythe U.S. Food and Drug Administration .Test Performed by:[address] [id number] Director: Ford Hector M.D. Ph.D.; CLIA# [id number] Urine March Negative Cutoff:200 MAIN LAB, [address] Methadone 2019 ng/[place] [address] Screen 7:27pm Venous March 7.43 pH 7.31-7.41 MAIN LAB, [address] [facility] Blood pH 2019 [place] [address] 5:45pm Venous March 39 mmHg 41-51 MAIN LAB, [address] [facility] Blood pCO2 2019 [place] [address] at Patient 5:45pm Temp Venous March 25.8 mmol/L 23-30 MAIN LAB , [address] [facility] Blood HCO3 2019 [place] [address] 5:45pm Venous October 1.0 mmol/L -2.0-2.0 MAIN LAB, [address] [place] [address] [place] [address] Excess 5:45pm Microbiology Results Procedure Source Result Collection Result Result Performin g Date/Time Date/Time Comment Site Blood Culture Blood, Left NO GROWTH April 15April MAIN LAB, [address] [facility] Antecubital AFTER 2019 9:50pm 2019 [place] [address] DAYS 7:26am Urine Culture Ur,Clean Catch April 13March MAIN LAB, [address] [facility] 2019 8:27pm 2019 [place] [address] 8:39am Gram Stain Csf April 13March [facility] LAB, [facility] 2019 9:45pm 2019 [place] [address] 5:13am CSF Culture Csf NO GROWTH April 13March MAIN LAB, [address] [place] [address] AFTER 72 2019 9:45pm 2019 [place] [address] HOURS 8:47am Diagnostic Imaging Reports Report Dictated Date/Time Dictated By Status Electrocardiogram April 13, 2020 6:51pm Jet Buck MD completed [facility] EKG PATIENT NAME: ROCIO AUGUSTE 003 DATE OF : 1950 ATTENDING PHYSICIAN: PRIMARY CARE PHYS: DICTATING PHYSICIAN: Jet mccray MD REPORT STATUS: Signed Test Reason : Blood Pressure : / mmHG Vent. Rate : 107 BPM Atrial Rate : 107 BPM P-R Int : 154 ms QRS Dur : 108 ms QT Int : 332 ms P-R-T Axes : -04 001 -5 8 degrees QTc Int : 443 ms Poor data quality, interpretation m ay be adversely affected Sinus tachycardia with premature atrial complexes Inferior infarct , age undetermined Anterior infarct , age undetermined Abnormal ECG No previous ECGs available Confirmed by Jet Buck ([id number] ) on 04/13/2020 7:08:34 PM Referred By: Arnel Buck [facility] med By:John Buck 04/13/20 1908 Electrocardiogram April 14, 2020 2:23am Mau Nguyen MD completed [facility] EKG PATIENT NAME: ROCIO AUGUSTE [id number] DATE OF : 1950 ATTENDING PHYSICIAN: PRIMARY CARE PHYS: [place] DICTATING PHYSICIAN: Mau Nguyen MD REPORT STATUS: Signed Test Reason : Blood Pressure : / mmHG Vent. Rate : 127 BPM Atrial Rate : 127 BPM P-R Int : 148 ms QRS Dur : 110 ms QT Int : 306 ms P-R-T Axes : 005 000 -3 6 degrees QTc Int : 444 ms Sinus tachycardia Inferior infarct , age undetermined Anterior infarct , age undetermined Abnormal ECG When compared with ECG of 14-APR-2020 0 1:47, (Unconfirmed) Significant changes have occurred Confirmed by Mau Nguyen ([id number]) on 03/19 2:34:21 AM Referred By: aMu Nguyen Confirmed By:Daria Nguyen 04/14/20 0234 Radiology Report April 14, 2020 8:19am Sherie Martinez completed [facility] CAT SCAN REPORT PATIENT NAME: ROCIO AUGUSTE 11 [id number] DATE OF : 1950 ATTENDING/ER PHYSICIAN: Helene Griffin MD ER/ATTENDING PHYSICIAN: Mau Nguyen MD PRIMARY CARE PHYS: [place] ADMITTING PHYSICIAN: Isai Mcduffie MD CONSULTING PHYSICIAN: PROCEDURE DATE: 04/13/20 REPORT STATUS: Signed DICTATING PHYSICIAN: Yuko Rosas MD REASON FOR EXAM: 69 yo M presenting w/ confusion and alte red mental status STUDY: CT Head w/o Contrast CLINICAL HISTORY: 69-year-old male pres enting with confusion and altered mental status. COMPARISON: None. TECHNIQUE: Serial axial images of the brain were o btained without administration of IV contrast. Coronal and sagittal reformatted images were made available from this axial data set. Radiation dose reduction using ADIR (Ad aptive Iterative Reconstruction) was applied. FINDINGS: Mild parenchymal volume loss is commens urate with patient's age. There is no hemorrhage, mass effect, mi dline shift, or hydrocephalus. The salas-white matter differentiation i s normally maintained. No extra-axial fluid collections are id entified. Periventricular white matter hypodensit ies are suggestive of microangiopathic ischemic changes. Intracranial atherosclerotic disease is noted in bilateral carotid siphons and vertebral arteries. The osseous calvarium is intact. The orbits and orbital contents are wit hin normal limits. The visualized paranasal sinuses and ma stoid air cells are clear. The extracranial soft tissues are unrem arkable. IMPRESSION: 1. No acute intracranial abnormality. 2. Chronic findings, as above. This is in agreement with preliminary r eport by [facility]RAD. dd: 04/14/20818 <Electronically signed by Yuko sparrow MD in OV> 04/14/2021 Radiology Report April 14, 2020 8:27am Sherie Martinez completed [facility] RADIOLOGY REPORT PATIENT NAME: ROCIO AUGUSTE 11 003 DATE OF : 1950 ATTENDING/ER PHYSICIAN: Helene Griffin MD ER/ATTENDING PHYSICIAN: Mau Nguyen MD PRIMARY CARE PHYS: Out [facility] ADMITTING PHYSICIAN: Isai Mcudffie MD CONSULTING PHYSICIAN: PROCEDURE DATE: 04/14/20 REPORT STATUS: Signed DICTATING PHYSICIAN: Yuko Rosas MD REASON FOR EXAM: short of breath STUDY: Chest 1 vw CLINICAL HISTORY: Shortness of breath COMPARISON: None. FINDINGS/IMPRESSION: The lung volumes are low which accentua carlos the cardiomediastinal silhouette and lung markings at the bases. Given this finding, the cardiomediastin al silhouette is likely within normal limits. Atherosclerotic calcification of the ao rtic arch. Central vascular congestion, without ov ert pulmonary edema. Queried small left pleural effusion. There is no focal consolidation, right pleural effusion or pneumothorax. Degenerative changes of the bilateral s houlder joints. dd: 04/14/20826 <Electronically signed by Yuko sparrow MD in OV> 04/14/20828 Radiology Report April 14, 2020 3:57pm Mary Vu MD completed [facility] RADIOLOGY REPORT PATIENT NAME: ROCIO AUGUSTE 11 003 DATE OF : 1950 ATTENDING/ER PHYSICIAN: Helene Griffin MD ER/ATTENDING PHYSICIAN: Mau Nguyen MD PRIMARY CARE PHYS: Out [facility] ADMITTING PHYSICIAN: Isai Mcduffie MD CONSULTING PHYSICIAN: PROCEDURE DATE: 04/13/20 REPORT STATUS: Signed DICTATING PHYSICIAN: Mary Vu MD , PhD REASON FOR EXAM: 69 yo M presenting w/ AMS. Endorses flu like symptoms and cough x2 weeks STUDY: Chest 1 vw COMPARISON: No FINDINGS: The cardiomediastinal silhouette is bor derline in size. There is no pulmonary edema. The lung volumes are noted secondary to marked evaluation of the right hemidiaphragm. No focal pulmonary consolidation, pleur al effusion or pneumothorax is noted. No pneumoperitoneum. Thoracic spondylosis is noted. CONCLUSION: No acute cardiopulmonary findings. dd: 04/14/20 1557 <Electronically signed by Mary sumner MD, PhD in OV> 04/14/20 1558 Radiology Report April 16, 2020 3:21pm Mary Vu MD completed [facility] CAT SCAN REPORT PATIENT NAME: ROCIO AUGUSTE 11 003 DATE OF : 1950 ATTENDING/ER PHYSICIAN: Helene Griffin MD ER/ATTENDING PHYSICIAN: Mau Nguyen MD PRIMARY CARE PHYS: [place] ADMITTING PHYSICIAN: Isai Mcduffie MD CONSULTING PHYSICIAN: PROCEDURE DATE: 04/16/20 REPORT STATUS: Signed with Addenda DICTATING PHYSICIAN: Mary Vu MD , PhD REASON FOR EXAM: FUO, elevated liver enzymes ADDENDUM Please read correct. TECHNIQUE: Oral contrast material was not administ ered for this exam. Addended on: 04/19/20 1249 by Mary Vu STUDY: CT Chest Abd Pel w/ Contrast. COMPARISON: No similar imaging is avail able for comparison TECHNIQUE: Serial axial images of the chest, abdom en and pelvis were obtained after administration of intravenous contrast. Oral contrast material was administered for this exam. Coronal and sagittal reformatted images were made available from this axial dataset. Radiation dose reduction using ADIR (Ad aptive Iterative Reconstruction) was applied. FINDINGS: CHEST: There is a nonocclusive filling defect in the segmental pulmonary artery supplying right posterior basal segment of the right lung (image 53 series 2, image 69 series 10 and image 86 series 8 ). These findings may be artifactual secon malia to heterogenous contrast bolus due to technique. The main pulmonary artery is normal in caliber. There is a mild cardiomegaly. There is a trace pericardial effusion. Atherosclerotic calcification vs stents are visualized in the coronary arteries. There is no right heart strain. The aorta and great vessels demonstrate normal caliber and patency. Atherosclerotic calcifications are noted in the aortic arch and descending aorta. No axillary, mediastinal or hilar lymph adenopathy is noted. Thyroid gland is unremarkable. There is a mild gynecomastia. The tracheobronchial tree is patent. Please note there is a respiratory kwame on artifact blurring the images. Atelectasis with scarring are noted in the lung bases. No acute pulmonary consolidation is identified. Multiple pulmonary nodules are noted as follows: * 4 mm pulmonary nodule in the right mi ddle lobe on image 144 series 4 * Cluster of 4-6 mm pulmonary nodules a long the right major fissure (image 147 series 4 * A couple of 3 mm pulmonary nodules in the right middle lobe on images 159 and 166 series 4 There is no pneumothorax or pleural eff usion. S-shaped thoracolumbar scoliosis with m ultilevel moderate spondylotic changes is noted in the thoracic spine. No suspicious or aggressive osseous les ions are visualized. CONCLUSION: 1. Nonocclusive filling defect in the s egmental pulmonary artery supplying right posterobasal segment may be artifa ctual. No right heart strain. If there is a clinical concern correlat ion with d-dimer and ultrasound of lower extremities for DVT is advised. 2. Bibasilar atelectases/scarring may b e chronic. 3. Multiple pulmonary nodules, likely b enign. 4. No intrathoracic lymphadenopathy. ABDOMEN and PELVIS: There is a mild hepatic steatosis. No f ocal mass is visualized. The portal and hepatic veins are patent. The gallbladder is unremarkable. No bam iary system dilatation is visualized. The pancreas, spleen and adrenal glands are unremarkable. Renal parenchyma demonstrates symmetric enhancement. There is no nephrolithiasis or hydronep hrosis. There is a mild bilateral nonspecific p erinephric fat stranding. This can be seen in pyelonephritis or UTI. No associ ated striated nephrogram or urothelial enhancement is identified. The bladder is mildly distended and unr emarkable. The prostate is normal in size. A coupl e of coarse calcifications are visualized in the transition zone. No hiatal hernia. Diffuse gastric wall thickening and wal l thickening in the duodenal bulb may be related to chronic gastroduodenitis. There is a 3.4 cm proximal duodenal div erticulum. No extraluminal air or surrounding mesenteric fat stranding is visualized. The rest of the duodenum and small intestine demonstrate no wall thic kening or air-fluid levels. The colon is markedly redundant. Mild l eft colon diverticulosis is noted in the distal colon and sigmoid. No acute diver ticulitis. The appendix is partially visualized. N o secondary findings for acute appendici tis. There is no bowel obstruction, pneumope ritoneum or ascites. No enlarged intra-abdominal or retroper itoneal lymph nodes are visualized. Advanced atherosclerotic calcifications are noted in the descending aorta and iliac arteries. There is a 3.7 x 3.6 cm infrarenal abdominal aortic aneurysm. Multilevel thoracolumbar spondylosis is noted. Sclerotic lesion visualized right iliac bone may represent bone island. No suspicious or aggressive appearing o sseous lesions are noted. Fat-containing nonobstructed umbilical and bilateral inguinal hernias are noted. Focal subcutaneous soft tissues are vis ualized in the left lower abdominal wall and may reflect injection ecchymosis or focal cellulitis. Clinical correlation is advised. CONCLUSION: 1. No acute abnormality in the abdomen and pelvis. 2. Mild left colon diverticulosis witho ut acute diverticulitis. 3. Findings may represent gastroduodeni tis. 4. Duodenal 3.4 cm diverticulum. 4. A 3.7 cm AAA amendable for annual ul trasound follow-up. These findings were discussed with hosp italist Helene Griffin at the time of dictation. dd: 04/16/20 1521 <Electronically signed by Mary sumner MD, PhD in OV> 04/16/20 1606 Radiology Report April 16, 2020 4:09pm Mary Vu MD completed [facility] ULTRASOUND REPORT PATIENT NAME: ROCIO AUGUSTE 11 003 DATE OF : 1950 ATTENDING/ER PHYSICIAN: Helene Griffin MD ER/ATTENDING PHYSICIAN: Mau Nguyen MD PRIMARY CARE PHYS: [place] ADMITTING PHYSICIAN: Isai Mcduffie MD CONSULTING PHYSICIAN: PROCEDURE DATE: 04/16/20 REPORT STATUS: Signed DICTATING PHYSICIAN: Mary Vu MD , PhD REASON FOR EXAM: fever, elevated LFTs STUDY: US Abdomen (Limited) COMPARISON: CT chest abdomen and pelvis of 04/16/2020 TECHNIQUE: grayscale and color flow anahi ges of the right upper quadrant were obtained with curvilinear transducer. FINDINGS: The liver is not enlarged. The right he patic lobe measures 15 cm on the mid clavicular line. Increased parenchymal echogenicity and coarse echotexture are noted in the liver parenchyma. There is no surface no dularity. No hepatic mass is visualized. There is no biliary ductal dilatation. Hepatic vascular flow is normal. Small amount of mobile sludge is noted in the gallbladder. No echogenic mobile shadowing structures to indicate gallsto sarath are identified. The wall thickness is borderline 3.1 mm. No gallbladder wal l hyperemia is demonstrated on color or power Doppler. The common biliary duct measures 2.7 mm in diameter. Sonographic Jones sign is negative. Suboptimal visualization of pancreas se condary to body habitus and overlying bowel gas The right kidney measures 11.6 x 5.9 x 5.9 cm. Non-shadowing calculus is noted in the upper pole on image 51. No associated hydronephrosis is visualized. No focal lesion or mass is identified. Suboptimal visualization of the vascula r flow in the renal cortex severe degree to patient's body habitus. No cortical thinning or increased echog enicity is visualized to indicate nephrosclerosis. There is no fluid in the Morison pouch. The IVC is patent. CONCLUSION: 1. Mobile sludge in gallbladder. No acu te cholecystitis. 2. Nonshadowing calculus in the right k idney upper pole. No hydronephrosis. 3. Nonvisualization of the pancreas. dd: 04/16/20 1609 <Electronically signed by Mary sumner MD, PhD in OV> 04/16/20 1617 Health Concerns Concerns Health Concerns: Decreased Mobility Advance Directives Advance Directive Response Recorded Date/Time Does patient have an Advanced Directive? No April 13, 2020 8:44pm Do we have a copy on file here at [facility]? No O ctober 2019 8:44pm Pt has a Living Will? No April 13, 2020 8:44pm Do we have a copy on file here at [facility]? No O ctober 2019 8:44pm Pt has a Power of Placing Judge? No March 8:44pm Do we have a copy on file here at [facility]? 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 ANAPLAMA,SEPSIS Amb Documentation Office visit Reason for Visit Anaplasmosis Anaplasmosis HLD (hyperlipidemia) Encounters Encounter Location(s) Arrival/Admit Date Discharge/Depart Provi nik(s) Date Registered [facility] April 14, 2020 Isai Figueroa , Outpatient Medical 2:32am Center-Hospitalis ts Discharged [facility] April 14, 2020 April 19, 2020 Maximilian Griffin Inpatient Medical 4:55am 12:11pm MD [place] Registered [facility] April 21, 2020 Anisa Link Outpatient Medical 1:40pm [facility] Departed [facility] April 23, 2020 April 23, 2020 Maximilian Griffin Clinical Medical 9:44am 9:45MD [facility] Center-Laboratory Departed [facility] April 27, April 27, 2020 Juan Jose [facility] 2019 2:12pm 3:18pm MD Yara nik Office [facility] Visit rn [facility] Registered [facility] April 29, April 30, 2020 Anuradha Bowling Outpatient Medical 2019 8:08pm 6:20pm MD Alexandra Center-Hospitalis ts Registered [facility] May 03, Paty Hurt , Outpatient Medical 2019 8:41am MADISYN Center-AMB Location Departed [facility] May 04, May 04, 2020 Juan Jose Lima [facility] 2019 10:47am 11:58am MD Yara nik Office [facility] Visit rn [facility] Recent Diagnosis Onset Date Anaplasmosis Anaplasmosis HLD (hyperlipidemia) Assessments Diagnosis Onset Date Resolution Status Anaplasmosis acute Anaplasmosis acute HLD (hyperlipidemia) acute Family History Relationship Condition Age at Onset Recorded Date/Ti me Unknown Family History Unknown April 14 4:59am Functional Status Observation Response Date Recorded Ambulation Ability Moderate Assistance April 14, 2020 2 :44am Clothing Mgt Ability Independent April 14, 2020 2:44am Feeding Ability Independent April 14, 2020 2 :44am Hygiene & Grooming Ability Independent April 14, 2020 2:44am Oral Hygiene Ability Independent April 14, 2020 2:44am Toileting Ability Moderate Assistance April 14, 2020 2 :44am Ambulation Ability Independent April 27, 2020 2:50pm Goals Acute Goals Goals: Return to improved or baseline le josi of mobility Return to prior level of function Immunizations Immunization Event Date Not Given Dose Sheet [employer] Vac cine Reason Number Number Informatio n Statement (VIS) Deta il Influenza High April [id number] Dose Quad 2019 Mental Status Observation Response Date Recorded Comprehension Ability Understands Concepts April 15 0 7:00pm Speech Appropriate April 14, 2020 2 :44am Clear April 14, 2020 2 :44am Medical Equipment No Medical Equipment Information available Insurance Providers Guarantor ROCIO AUGUSTE Address [address] [place] [id number] Contact Info. Home Phone: Payer Policy Id Coverage Id Subscriber's Subscriber Id Effective E xpiration Name Date Date MEDICARE [id number] ROCIO AUGUSTE [id number] PART A AND B 42 JR COVERAGE SELF PAY Self N/A Plan of Treatment Pt is recently d/c'd from [facility] following admission for altered mentation, lab abnormalities (including transaminitis, LDH), and fever of unknown origin. Despite recc's for f/u labs today I'm inclined to treat for anaplasmosis and repeat testing after course of doxy. I do not see documentation of this result being followed up on/treated. Pt is poor historian, but given no focal deficits and nml CT during admission I do not feel he requires MRI brain @ this time. My primary concern is establishing what his baseline is and confirming he has adequate support @ home to complete treatment and perform ADL's which he denies any difficulty doing. It's unclear to me how well he was mentating/functioning @ time of d/c. - ABX as below - will reach out to CM team, I greatly appreciate assistance with confirming some details of home support, ability to complete course of ABX, and f/u as scheduled/requested - may require brain MRI and further eval for dementia - Will hold off on neuro referral for now despite IP team concern for Parkinson's. I do not appreciate tremor and have yet to establish his baseline mental status. Also should be treated before anaplasmosis before determining clinical status Future Tests Future scheduled test information is unavailable Pending Tests Pending diagnostic test information is unavailable Future Visits Future appointment information is unavailable Referrals to Other Providers Reason for Referral Start Provider Provider Contact Provider Address Referral Date Information [facility] Work Phone: [phone] [facility] Center PPT [employer] [phone] Juan Jose Livingston Work Phone: [facility] MD [phone] Juan Jose Livingston Work Phone: [facility] MD [phone] [phone] Future Procedures Future procedure information is unavailable Future Medications Future medication information is unavailable Patient Instructions Fever of Unknown Origin (DC) COVID 19 General Instructions- decrease the spread of coronavirus ([facility]) Ehrlichiosis Infections (DC) COVID 19 General Instructions- decrease the spread of coronavirus ([facility]) Social History Smoking Status Status Date of Observation Never smoked tobacco (finding) May 04, 2020 11: 38am Observation Status Observation Response Date of Response Alcohol Use Yes April 29, 2020 8:17pm alcohol intake frequency holidays/special occasions April 29, 2020 8:17pm only Substance/Street Drug Use No April 29, 2020 8:17pm substance use type does not use April 29, 2020 6:15pm Smoking Status Never smoker May 04, 2020 11:38am Assigned Sex Male Vital Signs Vital Reading Result Reference Range Collection Date/ Time Height 71 [in_i] April 14 2:41pm Weight 109.60 kg April 14 2:41pm Body Temperature 97.0 [degF] 97.6-99.6 April 19, 020 9:37am Heart Rate 100 /min 60-100 April 19 9:37am Respiratory rate 19 /min -April 19, 2 020 9:37am Oxygen saturation by Pulse 97 % 95-100 2019 9:37am oximetry BP Systolic 148 mm[Hg] 100-140 April 19 9:37am BP Diastolic 84 mm[Hg] 50-85 April 19 9:37am BMI (Body Mass Index) 33.7 kg/m2 April 142019 2:41pm Height 69.5 [in_i] April 27 020 2:23pm Weight 105.68 kg April 27 2 020 2:23pm Body Temperature 98.5 [degF] 97.6-99.6 April 27, 2020 2:23pm Heart Rate 84 /min 60-100 April 27, 2 020 2:23pm Respiratory rate 20 /min -April 27, 2020 2:23pm Oxygen saturation by Pulse 96 % 95-100 [facility] 2019 2:23pm oximetry BP Systolic 116 mm[Hg] 100-140 April 27, 2 020 2:23pm BP Diastolic 78 mm[Hg] 50-85 April 27, 2 020 2:23pm BMI (Body Mass Index) 33.9 kg/m2 April 182019 2:23pm Height 71 [in_i] April 29 9:26am Weight 104.00 kg April 29 6:15pm Body Temperature 97.5 [degF] 97.6-99.6 April 30, 2020 3:31pm Heart Rate 92 /min 60-100 April 30 3:31pm Respiratory rate 20 /min 12-24 April 30, 2020 3:31pm Oxygen saturation by Pulse 99 % 95-100 2019 3:31pm oximetry BP Systolic 116 mm[Hg] 100-140 April 30 3:31pm BP Diastolic 72 mm[Hg] 50-85 April 30 3:31pm Height 70.5 [in_i] May 04 11:26am Weight 107.50 kg May 04 11:26am Body Temperature 96.4 [degF] 97.6-99.6 May 04, 2020 11:26am Heart Rate 80 /min 60-100 May 04 11:26am Respiratory rate 16 /min -May 04, 2020 11:26am BP Systolic 122 mm[Hg] 100-140 May 04 11:26am BP Diastolic 82 mm[Hg] 50-85 May 04 11:26am BMI (Body Mass Index) 33.5 kg/m2 April 182019 11:26am
--- OUTSIDE RECORDS SUMMARY | 2022-01-19 09:30 | XMS_ITS | Continuity of Care Document ---
:[address] [facility] Address [address] [place] [address] Phone Care Team Providers Name Role Phone Isai Mcduffie Admit Provider Helene Griffin Attending Provider Juan Jose Livingston Primary Care Provider Allergies, Adverse Reactions, Alerts No known allergies. Medications Medication Status Dose Units Route Directions Qty Days Start End Ins tructions Date Date Fluzone Discontin 0.7 ML IM ONCE 0.7 Aprilb HighDose ued , er Quad 2019 (flu vacc 2:12pm 2019 qx2300-79(65 3:17pm yr up)-PF) 240 mcg/0.7 mL Doxycycline Active 100 MG PO TWICE A DAY April Hyclate 2019 3:02pm Problems Active Problems Medical Problem Onset Date Status Fever, unknown origin Active Procedures Procedure Date Performed Status CT [...] Blood November 8.24 4.8-10.8 MAIN LAB , [address] [place] [address] 2019 1000/mm3 [place] [address] 9:54am White Blood November 6.15 4.8-10.8 MAIN LAB , [address] [place] [address] 2019 1000/mm3 [place] [address] 6:21am Red Blood November 5.30 M/mm3 4.70-6.00 MAIN LAB, [address] [place] [address] Count 2019 [place] [address] 9:54am Red Blood November 4.61 M/mm3 4.70-6.00 MAIN LAB, [address] [place] [address] Count 2019 [place] [address] 6:21am Hemoglobin November 15.7 g/dL 14.0-18.0 MAIN LAB, [address] [place] [address] 2019 [place] [address] 9:54am Hemoglobin November 13.6 g/dL 14.0-18.0 MAIN LAB, [address] [place] [address] 2019 [place] [address] 6:21am Hematocrit November 47.0 % 42-52 MAIN LAB, [address] [place] [address] 2019 [place] [address] 9:54am Hematocrit November 40.5 % 42-52 MAIN LAB, [address] [place] [address] 2019 [place] [address] 6:21am Mean April 88.7 fL 80.0-94.0 MAIN LAB, [address] [place] [address] Corpuscular [place] [address] Volume 9:54am Mean April 87.9 fL 80.0-94.0 MAIN LAB, [address] [place] [address] Corpuscular [place] [address] Volume 6:21am Mean November 29.6 pg 27-31 MAIN LAB, [address] [place] [address] Corpuscular 2019 [place] [address] Hemoglobin 9:54am Mean April 29.5 pg 27-31 MAIN LAB, [address] [place] [address] Corpuscular 2019 . [place] [address] Hemoglobin 6:21am Mean April 33.4 g/dL 33-37 MAIN LAB, [address] [place] [address] Corpuscular 2019 [place] [address] Hemoglobin 9:54am Concent Mean April 33.6 g/dL 33-37 MAIN LAB, [address] [place] [address] Corpuscular 2019 [place] [address] Hemoglobin 6:21am Concent Red Cell November 14.3 % 11.5-14.5 MAIN LAB, [address] [place] [address] Distributio 2019 [place] [address] n Width 9:54am Red Cell November 13.8 % 11.5-14.5 MAIN LAB, [address] [place] [address] Distributio 2019 [place] [address] n Width 6:21am Platelet April 316 1000/mm3 140-440 MAIN LA B, [address] [place] [address] Count 2019 [place] [address] 9:54am Platelet April 87 1000/mm3 140-440 MAIN LAB , [address] [place] [address] Count 2019 [place] [address] 6:21am Mean April 10.9 fL 7.4-10.4 MAIN LAB, [address] [place] [address] Platelet 2019 [place] [address] Volume 9:54am Mean April 12.6 fL 7.4-10.4 MAIN LAB, [address] [place] [address] Platelet 2019 [place] [address] Volume 6:21am Neutrophils March 81.2 % 40.0-72.0 MAIN LAB , [address] [place] [address] (%) (Auto) 2019 [place] [address] 6:01am Lymphocytes October 11.0 % 17-45 MAIN LAB , [address] [place] [address] (%) (Auto) 2019 [place] [address] 6:01am Monocytes October 6.9 % 3-11 MAIN LAB, [address] [place] [address] (%) (Auto) 2019 . [place] [address] 6:01am Eosinophils October 0.0 % 0-3 MAIN LAB , [address] [place] [address] (%) (Auto) 2019 [place] [address] 6:01am Basophils October 0.3 % 0-1 MAIN LAB, [address] [place] [address] (%) (Auto) 2019 [place] [address] 6:01am Immature October 0.6 % 0-1 MAIN LAB, [address] [place] [address] [place] [address] % (Auto) 6:01am Neutrophils October 2.72 1.4-6.5 MAIN LAB , [address] [place] [address] # (Auto) 2019 1000/[place]3 [place] [address] 6:01am Lymphocytes October 0.37 1.2-3.4 MAIN LAB , [address] [place] [address] # (Auto) 2019 1000/[place]3 [place] [address] 6:01am Monocytes # March 0.23 0.0-0.8 MAIN LAB , [address] [place] [address] (Auto) 2019 1000/[place]3 [place] [address] 6:01am Eosinophils October 0.00 0.0-0.7 MAIN LAB , [address] [place] [address] # (Auto) 2019 1000/[place]3 [place] [address] 6:01am Basophils # October 0.01 0.0-0.1 MAIN LAB , [address] [place] [address] (Auto) 2019 1000/[place]3 [place] [address] 6:01am Absolute October 0.0 0-1 MAIN LAB, [address] [place] [address] [place] [address] Granulocyte 6:01am (auto Differentia October Automated MAIN LAB , [address] [place] [address] [place] [address] 6:01am Platelet October Clumped, MAIN LAB, [address] [place] [address] [place] [address] 5:12am Platelet October 2+ MAIN LAB, [address] [place] [address] Clumps, 2019 [place] [address] EDTA 5:12am Differentia October See comments Mild MAIN LAB, [address] [place] [address] [place] [address] Pathologist 6:01am and new onset 's Review thrombocytopen ia. Laboratory data reviewed. Suggest consideration with hepatitis viral serologies and further image analysis(CT of abdomen) if clinically indicated.Smea r reviewed by pathologist for quality control tester.Jabari Feliz MD04/16/20 Erythrocyte March 2 mm/hr 0-30 MAIN LAB , [address] [facility] Sedimentati [address] [place] [address] on Rate 8:45pm Urine RBC March 0-2 /hpf MAIN LAB, [address] [facility] [address] [place] [address] 7:27pm Urine WBC March None seen MAIN LAB, [address] [facility] 2019 /[place] [address] 7:27pm Urine March None seen NONE SEEN MAIN LAB, [address] [facility] Bacteria 2019 /[place] [address] 7:27pm Urine Mucus March Present MAIN LAB , [address] [place] [address] [place] [address] 7:27pm Ur March Negative Negative Presumptive [facility] Streptococc 2019 negative for LABO RATORIES us 10:00pm pneumococcal pneumoniae pneumonia, Antigen suggestingno current or recent infection. Infection due to S.pneumoniae cannot be ruled out since the antigen present inthe sample may be below detection limit of the test.--------- PILO TIONAL INFORMATION--- --This assay was performed using the FDA-cleared BinaxNOWStrept ococcus pneumoniae Antigen test, a rapidimmunochr omatographic assay.Test Performed by:[facility] [place] [id number] Director: Ford Hector M.D. Ph.D.; CLIA# [id number] Urine March Negative Negative Presumptive [facility] Legionella 2019 negative for [...] Test, a rapidimmunochr omatographic assay.Test Performed by:[facility] [place] [address], [place], [place] [address]Vkf Director: Ford Hector M.D. Ph.D.; CLIA# [id number] Sodium November 137 mmol/L 137-145 MAIN LAB, [address] [facility] [place] 2019 [place] [address] 9:54am Sodium November 138 mmol/L 137-145 MAIN LAB, [address] [facility] [place] 2019 [place] [address] 6:21am Potassium November 4.9 mmol/L 3.6-5.0 MAIN LAB, [address] [place] [address] 2019 [place] [address] 9:54am Potassium November 3.7 mmol/L 3.6-5.0 MAIN LAB, [address] [place] [address] 2019 [place] [address] 6:21am Chloride November 105 mmol/L 98-107 MAIN LAB, [address] [place] [address] 2019 [place] [address] 9:54am Chloride November 107 mmol/L 98-107 MAIN LAB, [address] [place] [address] 2019 [place] [address] 6:21am Carbon November 23 mmol/L 22-30 MAIN LAB, [address] [place] [address] Dioxide 2019 [place] [address] Level 9:54am Carbon November 26 mmol/L 22-30 MAIN LAB, [address] [place] [address] Dioxide 2019 [place] [address] Level 6:21am Anion Gap April 9 7-16 MAIN LAB, [address] [facility] 2019 [place] [address] 9:54am Anion Gap April 5 7-16 MAIN LAB, [address] [facility] 2019 [place] [address] 6:21am Blood Urea November 13 mg/dL 8- MAIN LAB, [address] [facility] Nitrogen 2019 [place] [address] 9:54am Blood Urea November 10 mg/dL 8- MAIN LAB, [address] [facility] Nitrogen 2019 [place] [address] 6:21am Creatinine November 0.68 mg/dL 0.66-1.25 MAIN LAB , [address] [place] [address] 2019 [facility] [address] 9:54am Creatinine November 0.56 mg/dL 0.66-1.25 MAIN LAB , [address] [place] [address] 2019 [facility] [address] 6:21am Glomerular November > 60 mL/min >60.0 MAIN LA B, [address] [place] [address] Filtration 2019 . [place] [address] Rate Calc 9:54am Glomerular November > 60 mL/min >60.0 MAIN LA B, [address] [place] [address] Filtration 2019 . [place] [address] Rate Calc 6:21am Glucose November 115 mg/dL 70-100 MAIN LAB, [address] [place] [address] 2019 [facility] [address] 9:54am Glucose November 87 mg/dL 70-100 MAIN LAB, [address] [place] [address] 2019 [facility] [address] 6:21am Calcium November 9.1 mg/dL 8.4-10.2 MAIN LAB, [address] [place] [address] 2019 [facility] [address] 9:54am Calcium November 7.9 mg/dL 8.4-10.2 MAIN LAB, [address] [place] [address] 2019 [facility] [address] 6:21am Calcium November 9.3 mg/dL 8.4-10.2 MAIN LAB, [address] [place] [address] Adjusted 2019 [place] [address] for Albumin 9:54am Calcium November 9.0 mg/dL 8.4-10.2 MAIN LAB, [address] [place] [address] Adjusted 2019 [facility] [address] for Albumin 6:21am Phosphorus October 2.8 mg/dL 2.5-4.5 MAIN LAB, [address] [place] [address] 2019 [facility] [place] [address] 11:00pm Magnesium March 1.9 mg/dL 1.6-2.3 MAIN LAB, [address] [place] [address] 2019 [facility] [place] [address] 11:00pm Total November 0.9 mg/dL 0.2-1.3 MAIN LAB, [address] [place] [address] 2019 [facility] [address] 9:54am Total November 1.0 mg/dL 0.2-1.3 MAIN LAB, [address] [place] [address] Bilirubin 2019 [facility] [address] 6:21am Direct March 0.0 mg/dL 0-0.3 MAIN LAB, [address] [place] [address] Bilirubin 2019 [facility] [address] 8:45pm Aspartate April 122 U/L MAIN LAB, [address] [place] [address] Amino 2019 [facility] [address] Transf 9:54am (AST/SGOT) Aspartate April 212 U/L MAIN LAB, [address] [place] [address] Amino 2019 [facility] [address] Transf 6:21am (AST/SGOT) Alanine April 163 U/L <50 As of 10/17/19, MAIN L AB, [address] [place] [address] Aminotransf 2019 the Reference [facility] [address] erase 9:54am Range for (ALT/SGPT) ALT/SGPT for adult patients has been updated. The Reference Range for ALT/SGPT has not been established for patients <18 years of age. Alanine April 143 U/L <50 As of 10/17/19, MAIN L AB, [address] [place] [address] Aminotransf 2019 the Reference [facility] [address] erase 6:21am Range for (ALT/SGPT) ALT/SGPT for adult patients has been updated. The Reference Range for ALT/SGPT has not been established for patients <18 years of age. Lactic Acid March 3.6 mmol/L 0.7-2.1 MAIN LA B, [address] [place] [address] Level 2019 [facility] [address] 6:01am Lactate April 831 U/L 313-618 Note: LDH MAIN LAB, [address] [place] [address] De[address]a [address] [facility] [address] se 9:54am be decreased upon refrigerated or frozen storage. Lactate April 1103 U/L 313-618 Note: LDH MAIN LAB, [address] [place] [address] Dehydrogena [address] [place] [address] se 6:21am be decreased upon refrigerated or frozen storage. Creatine April 667 U/L 55-170 MAIN LAB, [address] [place] [address] Kinase 2019 [place] [address] 6:21am Total November 7.5 g/dL 6.3-8.2 MAIN LAB, [address] [place] [address] Protein 2019 [facility] [address] 9:54am Total November 5.8 g/dL 6.3-8.2 MAIN LAB, [address] [place] [address] Protein 2019 [place] [address] 6:21am Albumin November 4.0 g/dL 3.5-5.0 MAIN LAB, [address] [place] [address] 2019 [facility] [address] 9:54am Albumin April 2.9 g/dL 3.5-5.0 MAIN LAB, [address] [place] [address] 2019 [facility] [address] 6:21am Cholesterol March 232 mg/dL 59-199 MAIN LAB , [address] [place] [address] 2019 [facility] [address] 11:00pm HDL March 29 mg/dL 40-60 [facility] [place] MAIN LA B, [address] [place] [address] [facility] [address] 11:00pm Education Program (NCEP) has set the following guidelines (reference values) for cholesterol, HDL:Low HDL: <40 mg/dLNormal: 40-60 mg/dLDesirable : >60 mg/dL LDL March 182.6 mg/dL 0-129 MAIN LAB , [address] [place] [address] Cholesterol 2019 [facility] [address] 11:00pm VLDL March 20.4 mg/dL 0-32 MAIN LAB, [address] [place] [address] Cholesterol 2019 [facility] [address] 11:00pm Cholesterol March 8.00 0-3.9 MAIN LAB , [address] [place] [address] /HDL Ratio 2019 [facility] [address] 11:00pm Triglycerid March 102 mg/dL 0-149 MAIN LAB , [address] [place] [address] es Level 2019 [facility] [place] [address] 11:00pm Alkaline November 214 U/L 38-126 MAIN LAB, [address] [place] [address] Phosphatase 2019 [facility] [address] 9:54am Alkaline November 155 U/L 38-126 MAIN LAB, [address] [place] [address] Phosphatase 2019 [facility] [address] 6:21am Thyroid March 1.73 mlU/L 0.47-4.68 The results of MAIN LAB, [address] [place] [address] Stimulating 2019 this assay [place] . [place] [address] Hormone 11:00pm be falsely (TSH) decreased in patients who consume Biotin. Hemoglobin March 5.08 % <5.7 <5.7%: MAIN LAB, [address] [place] [address] A1c Percent 2019 Normal5.7%-6.4 [facility] [place] [address] 5:45pm %: Prediabetes>=6 .5%: Diagnostic for diabetesGoals for Glycemic Control in Diabetes (ADA 2018)<7.0%: A1c target for non adults with diabetes. More or less stringent glycemic goals may be appropriate for individual patients.<7.5% : A1c target for children and adolescents with type I diabetes. A lower goal is reasonable if it can be achieved without excessive hypoglycemia. Estimated March 99 mg/dL MAIN LAB, [address] [place] [address] [place] [address] Glucose 5:45pm mg/dL C-Reactive March 245.8 mg/L -10 MAIN LAB , [address] [place] [address] [place] [address] 8:45pm Influenza March Negative Negative MAIN LAB, [address] [place] [address] [place] [address] (RT-PCR) 6:30pm Influenza March Negative Negative MAIN LAB, [address] [place] [address] [place] [address] (RT-PCR) 6:30pm Respiratory March Negative Negative MAIN LAB , [address] [place] [address] [place] [address] Virus 6:30pm (RT-PCR Herpes March Negative [facility] Simplex 2019 LABORATOR IES Virus I DNA 8:45pm (PCR) Herpes March Negative [facility] Simplex 2019 LABORATOR IES Virus II 8:45pm DNA (PCR) Varicella-Z March Not [facility] tony 2019 Reportable LABORATO JULIO Specimen 8:45pm Descript Varicella-Z March Negative [facility] tony Virus 2019 LABORAT ORIES DNA (PCR) 8:45pm Coronavirus March Negative Negative This test has [facility] 2019 PCR 2019 not been FDA LABORA [...] invitro diagnostic tests for detection and/or diagnosis [id number] under section 564(b)(1) of Act, 21 U.S.C ?360bbb-3(b) (1), unless the authorization is terminated orrevoked sooner.Negativ e results do not preclude 2019-nCoV infection andshould not be used as the sole basis for treatment or otherpatient management decisions. Negative results must becombined with clinical observations, patient history, andepidemiolog ical information.Pe rformed on the DigitalMR [place] Fusion instrument Reference March [place] Please [facility] Lab Test 2019 [facility] lab indicate the LABORA TORIES Performing 6:13pm Triage Site [id number] [place] [address] CSF March Clear MAIN LAB, [address] [place] [address] [place] [address] 8:45pm CSF Color March Colorless MAIN LAB, [address] [place] [address] [place] [address] 8:45pm CSF Volume March 14 mL MAIN LAB, [address] [place] [address] [place] [address] 8:45pm Body Fluid March 4 MAIN LAB, [address] [place] [address] [place] [address] Tubes 8:45pm CSF WBC March 3 0-5 Cell Count MAIN LAB, [address] [place] [address] [place] [address] 8:45pm tube number 4 Cell Count performed on tube number 4 CSF RBC March 2 0-9 Cell Count MAIN LAB, [address] [place] [address] [place] [address] 8:45pm tube number 4 Cell Count performed on tube number 4 CSF Glucose March 60 mg/dL 40-70 MAIN LAB , [address] [place] [address] [place] [address] 8:45pm CSF Total March 70 mg/dL 12-60 MAIN LAB, [address] [place] [address] Protein 2019 [facility] [address] 8:45pm Babesia March Negative Negative [facility] microti DNA 2019 LABORAT ORIES (PCR) 7:00am Babesia March Negative Negative [facility] duncani DNA 2019 LABORAT ORIES (PCR) 7:00am Babesia October Negative Negative [facility] divergens/M 2019 -----ADDITIONA LA BORATORIES O-1 (PCR) 7:00am L INFORMATION--- --This test was developed and its performance characteristic sdetermined by [facility] in a manner consistent with CLIArequiremen ts. This test has not been cleared or approved bythe U.S. Food and Drug Administration . Anaplasma March Positive Negative [facility] phagocytoph 2019 LABORAT ORIES davon DNA 7:00am (PCR) Ehrlichia March Negative Negative [facility] chaffeensis 2019 LABORAT ORIES DNA (PCR) 7:00am Ehrlichia March Negative Negative [facility] ewingii/can 2019 LABORAT ORIES is (PCR) 7:00am Ehrlichia March Negative Negative [facility] muris-like 2019 -----ADDITIONA LAB ORATORIES DNA (PCR) 7:00am L INFORMATION--- --This test was developed and its performance characteristic sdetermined by [facility] in a manner consistent with CLIArequiremen ts. This test has not been cleared or approved bythe U.S. Food and Drug Administration . Borrelia March Negative Negative [facility] miyamotoi 2019 -----ADDITIONA LABO RATORIES (PCR) 7:00am L INFORMATION--- --This test was developed and its performance characteristic sdetermined by [facility] in a manner consistent with CLIArequiremen ts. This test has not been cleared or approved bythe U.S. Food and Drug Administration .Test Performed by:[facility] [address] [address]Dsk Director: Ford Hector M.D. Ph.D.; CLIA# [id number] Urine March Negative Cutoff:200 MAIN LAB, [address] [facility] Methadone 2019 ng/[place] [address] Screen 7:27pm Venous March 7.43 pH 7.31-7.41 MAIN LAB, [address] [facility] Blood pH 2019 [place] [address] 5:45pm Venous March 39 mmHg 41-51 MAIN LAB, [address] [facility] Blood pCO2 2019 [place] [address] at Patient 5:45pm Temp Venous March 25.8 mmol/L 23-30 MAIN LAB , [address] [facility] Blood HCO3 2019 [place] [address] 5:45pm Venous March 1.0 mmol/L -2.0-2.0 MAIN LAB, [address] [place] [address] [place] [address] Excess 5:45pm Microbiology Results Procedure Source Result Collection Result Result Performin g Date/Time Date/Time Comment Site Blood Culture Blood, Left NO GROWTH April 15April MAIN LAB, [address] [place] [address] Antecubital AFTER 5 2019 9:50pm 2019 [place] [address] DAYS 7:26am Urine Culture Ur,Clean Catch April 13March MAIN LAB, [address] [place] [address] 2019 8:27pm 2019 [place] [address] 8:39am Gram Stain Csf April 13March [facility], [address] [place] [address] 2019 9:45pm 2019 [place] [address] 5:13am CSF Culture Csf NO GROWTH April 13March [facility], [address] [place] [address] AFTER 72 2019 9:45pm 2019 [place] [address] HOURS 8:47am Diagnostic Imaging Reports Report Dictated Date/Time Dictated By Status Electrocardiogram April 13, 2020 6:51pm Jet Buck MD completed [facility] EKG PATIENT NAME: ROCIO AUGUSTE 003 [...] 04/13/2020 7:08:34 PM Referred By: Arnel Buck [facility] med By:John Buck 04/13/20 1908 Electrocardiogram April 14, 2020 2:23am Mau Nguyen MD completed [facility] EKG PATIENT NAME: ROCIO AUGUSTE [id number] DATE OF : 1950 ATTENDING PHYSICIAN: PRIMARY [...] (339) on 03/19 2:34:21 AM Referred By: Mau Nguyen Confirmed By:Daria Nguyen 04/14/20 0234 Radiology Report April 14, 2020 8:19am Sherie Martinez completed [facility] CAT SCAN REPORT PATIENT NAME: ROCIO [...] signed by Yuko sparrow MD in OV> 04/14/20820 Radiology Report April 14, 2020 8:27am Sherie Martinez completed [facility] RADIOLOGY REPORT PATIENT NAME: ROCIO AUGUSTE 11 003 DATE OF : 1950 ATTENDING/ER PHYSICIAN: Helene Griffin MD ER/ATTENDING PHYSICIAN: Mau Nguyen MD PRIMARY CARE PHYS: [place] ADMITTING PHYSICIAN: Isai Mcduffie MD CONSULTING PHYSICIAN: PROCEDURE DATE: 04/14/20 REPORT [...] signed by Yuko sparrow MD in OV> 04/14/20 0829 Radiology Report April 14, 2020 3:57pm Mary Vu MD completed [facility] RADIOLOGY REPORT PATIENT NAME: ROCIO AUGUSTE [...] 16, 2020 3:21pm Mary Vu MD completed [facility] CAT SCAN REPORT PATIENT NAME: ROCIO [...] follow-up. These findings were discussed with hosp italinés Griffin at the time of dictation. dd: 04/16/20 1521 <Electronically signed by Mary sumner MD, PhD in OV> 04/16/20 1606 Radiology Report April 16, 2020 4:09pm Mary Vu MD completed [facility] ULTRASOUND REPORT PATIENT NAME: ROCIO AUGUSTE [...] have a copy on file here at [facility]? No O ctober 2019 8:44pm Pt has a Living Will? No April 13, 2020 8:44pm Do we have a copy on file here at [facility]? No O ctober 2019 8:44pm Pt has a Power of Manager Business Information? No March 8:44pm Do we have a copy on file here at [facility]? No O ctober 2019 8:44pm Chief Complaint and Reason for Visit Chief Complaint AMS Fever Amb Documentation Lab [employer]/follow up hospital stay Reason for Visit Fever, unknown origin Encounters Encounter Location(s) Arrival/Admit Date Discharge/Depart Provi nik(s) Date Registered [facility] April 14, 2020 Isai Figueroa , Outpatient Medical 2:32am Center-Hospitalis ts Discharged [facility] April 14, 2020 April 19, 2020 Maximilian Griffin Inpatient Medical 4:55am 12:11pm MD Center-Progressiv e Care Unit Registered [facility] April 21, 2020 Anisa Link Outpatient Medical 1:40pm [facility] Center-Lifestyle Medicine Departed [facility] April 23, 2020 April 23, 2020 Maximilian Griffin Clinical Medical 9:44am 9:45am MD Center-Laboratory Departed [facility] April 27April 27, 2020 Juan Jose Lima [facility] 2019 2:12pm 3:18pm MD [facility] Visit rn [facility] Recent Diagnosis Onset Date Fever, unknown origin Assessments Diagnosis Onset Date Resolution Status Fever, unknown origin acute Family History Relationship Condition Age at [...] improved or baseline le josi of mobility Immunizations Immunization Event Date Not Given Dose Safety Administrator Lot Vac cine Reason Number Number Informatio n Statement (VIS) Deta il Influenza High April [id number] Dose 2019 Mental Status Observation Response Date Recorded Comprehension Ability Understands Concepts April 15 0 7:00pm Speech Appropriate April 14, 2020 2 :44am Clear April 14, 2020 2 :44am Medical Equipment No Medical Equipment Information available Insurance Providers Guarantor ROCIO AUGUSTE JR Address [facility] [address] Contact Info. Home Phone: Payer Policy Id Coverage Id Subscriber's Subscriber Id Effective E xpiration Name Date Date MEDICARE [id number] ROCIO AUGUSTE [id number] PART A AND B 42 JR COVERAGE SELF PAY Self N/A Plan of Treatment Future Tests Future scheduled test information is unavailable Pending Tests Pending diagnostic test information is unavailable Future Visits Future appointment information is unavailable Referrals to Other Providers Reason for Referral Start Provider Provider Contact Provider Address Referral Date Information [facility] Work Phone: [phone] [facility] [phone] Work Phone: [facility] MD [address] [facility] [phone] Future Procedures Future procedure information is unavailable Future Medications Future medication information is unavailable Patient Instructions Fever of Unknown Origin (DC) COVID 19 General Instructions- decrease the spread of coronavirus ([facility]) Social History Smoking Status Status Date of Observation Never smoked tobacco (finding) April 27, 2020 2:5 0pm Observation Status Observation Response Date of Response Alcohol Use No April 14, 2020 4 :59am alcohol intake frequency holidays/special occasions April 27, 2020 2:50pm only Substance/Street Drug Use No April 14, 2020 4:59am substance use type does not use April 27, 2020 2:50pm Smoking Status Never smoker April 27, 2020 2:50pm Assigned Sex Male Vital Signs Vital Reading Result Reference Range Collection Date/ Time Height 71 [in_i] April 14 2:41pm Weight 109.60 kg April 14 2:41pm Body Temperature 97.0 [degF] 97.6-99.6 April 19, 2 020 9:37am Heart Rate 100 /min 60-100 April 19 9:37am Respiratory rate 19 /min -April 19, 2 020 9:37am Oxygen saturation by Pulse 97 % 95-100 2019 9:37am oximetry BP Systolic 148 mm[Hg] 100-140 April 19 9:37am BP Diastolic 84 mm[Hg] 50-85 April 19 9:37am BMI (Body Mass Index) 33.7 kg/m2 April 142019 2:41pm Height 69.5 [in_i] April 27, 2 020 2:23pm Weight 105.68 kg April 27, 2 020 2:23pm Body Temperature 98.5 [degF] 97.6-99.6 April 27, 2020 2:23pm Heart Rate 84 /min 60-100 April 27, 2 020 2:23pm Respiratory rate 20 /min -April 27, 2020 2:23pm Oxygen saturation by Pulse 96 % 95-100 2019 2:23pm oximetry BP Systolic 116 mm[Hg] 100-140 April 27, 2 020 2:23pm BP Diastolic 78 mm[Hg] 50-85 April 27, 2 020 2:23pm BMI (Body Mass Index) 33.9 kg/m2 April 182019 2:23pm
--- OUTSIDE RECORDS SUMMARY | 2022-01-19 09:30 | XMS_ITS | Continuity of Care Document ---
:1950 Author Organization [facility] Address [address] [place] [address] Care Team Providers Name Role Phone Out of Town, Provider Primary Care Physician Unavailable Isai Mcduffie Admitting Physician Isai Mcduffie Attending Physician Allergies, Adverse Reactions, Alerts No allergy information available. Medications No medication information available. Problem List Active Problems Medical Problem Onset Date Status Acute encephalopathy Active Fever of unknown origin Active Altered mental status Active Procedures Procedure Date Status Chest 1 vw April 14, 2020 active INTERFACE ELECTROCARDIOGRAM April 14, [address] Head w/o Contrast April 13, 2020 active Chest 1 vw April 13, 2020 active Urine Culture April 13, 2020 active INTERFACE ELECTROCARDIOGRAM April 13, 2020 completed Gram Stain April 13, 2020 active CSF Culture April 13, 2020 active Blood Culture April 13, 2020 active Relevant Diagnostic Tests and/or Laboratory Data Laboratory Results Test Date/Time Result Interp. Ref. Result Comment Range White Blood Count April 13, 5.60 1000/mm3 4.8-10.8 2019 6:45pm Red Blood Count April 13, 5.87 M/mm3 4.70-6.00 2019 6:45pm Hemoglobin April 13, 17.4 g/dL 14.0-18.0 2019 6:45pm Hematocrit April 13, 51.7 % 42-52 2019 6:45pm Mean Corpuscular April 13, 88.1 fL 80.0-94.0 Volume 2019 6:45pm Mean Corpuscular April 13, 29.6 pg 27-31 Hemoglobin 2019 6:45pm Mean Corpuscular April 13, 33.7 g/dL 33-37 Hemoglobin Concent 2019 6:45pm Red Cell Distribution April 13, 13.2 % 11.5-14.5 Width 2019 6:45pm Platelet Count April 13, 146 1000/mm3 [phone] 6:45pm Mean Platelet Volume April 13, 10.8 fL High 7.4-10.4 2019 6:45pm Neutrophils (%) April 13, 84.1 % High 40.0-72.0 (Auto) 2019 6:45pm Lymphocytes (%) April 13, 6.6 % Low 17-45 (Auto) 2020 6:45pm Monocytes (%) (Auto) April 13, 8.6 % 3-11 2019 6:45pm Eosinophils (%) April 13, 0.0 % 0-3 (Auto) 2019 6:45pm Basophils (%) (Auto) April 13, 0.2 % 0-1 2019 6:45pm Immature Granulocyte April 13, 0.5 % 0-1 % (Auto) 2019 6:45pm Neutrophils # (Auto) April 13, 4.71 1000/mm3 1.4-6.5 2019 6:45pm Lymphocytes # (Auto) April 13, 0.37 1000/mm3 Low 1.2-3.4 2019 6:45pm Monocytes # (Auto) April 13, 0.48 1000/mm3 0.0-0.8 2019 6:45pm Eosinophils # (Auto) April 13, 0.00 1000/mm3 0.0-0.7 2019 6:45pm Basophils # (Auto) April 13, 0.01 1000/mm3 0.0-0.1 2019 6:45pm Absolute Immature April 13, 0.0 0-1 Granulocyte (auto 2020 6:45pm Differential Method April 13, Automated 2019 6:45pm Urine RBC April 13, 0-2 /hpf 2019 8:27pm Urine WBC April 13, None seen /hpf 2019 8:27pm Urine Bacteria April 13, None seen /hpf 2019 8:27pm Urine Mucus April 13, Present 2019 8:27pm Sodium Level April 13, 135 mmol/L Low [phone] 6:45pm Potassium Level April 13, 4.4 mmol/L 3.6-5.0 2019 6:45pm Chloride Level April 13, 99 mmol/L 98-107 2019 6:45pm Carbon Dioxide Level April 13, 23 mmol/L -2019 6:45pm Anion Gap April 13, 13 7-16 2019 6:45pm Blood Urea Nitrogen April 13, 14 mg/dL 8-2019 6:45pm Creatinine April 13, 0.91 mg/dL 0.66-1.25 2019 6:45pm Glomerular Filtration April 13, > 60 mL/min 60.0- Rate Calc 2019 6:45pm Glucose Level April 13, 122 mg/dL High 70-100 2019 6:45pm Calcium Level April 13, 9.3 mg/dL 8.4-10.2 2019 6:45pm Calcium Adjusted for April 13, 8.9 mg/dL 8.4-10.2 Albumin 2019 6:45pm Phosphorus Level April 14, 2.8 mg/dL 2.5-4.5 2019 12:00am Magnesium Level April 14, 1.9 mg/dL 1.6-2.3 2019 12:00am Total Bilirubin April 13, 1.2 mg/dL 0.2-1.3 2019 6:45pm Aspartate Amino April 13, 59 U/L 17-59 Transf (AST/SGOT) 2019 6:45pm Alanine April 13, 33 U/L As of 10/17/19, the Reference Range for ALT/SGPT for adult patients has been updated. Aminotransferase 2019 6:45pm The Ref erence Range for ALT/SGPT has not been established for patients <18 years of age. (ALT/SGPT) Lactic Acid Level April 14, 2.8 mmol/L High 0.7-2.1 2019 12:00am Total Protein April 13, 9.0 g/dL High 6.3-8.2 2019 6:45pm Albumin April 13, 4.8 g/dL 3.5-5.0 2019 6:45pm Cholesterol Level April 14, 232 mg/dL High [...] 14, 20.4 mg/dL 0-32 2019 12:00am Cholesterol/HDL Ratio April 14, 8.00 High 0-3.9 2019 12:00am Triglycerides Level April 14, 102 mg/dL 0-149 2019 12:00am Alkaline Phosphatase April 13, 108 U/L 38-126 2019 6:45pm Thyroid Stimulating April 14, 1.73 mlU/L 0.47-4.68 The results of this Hormone (TSH) 2019 12:00am assay can be falsely decrea sed in patients wh o consume Biotin . Hemoglobin A1c April 13, 5.08 % <5.7%: [...] 13, 99 mg/dL Glucose mg/dL 2019 6:45pm Influenza Type A April 13, Negative (RT-PCR) 2019 7:30pm Influenza Type B April 13, Negative (RT-PCR) 2019 7:30pm Respiratory Syncytial April 13, Negative Virus (RT-PCR 2019 7:30pm Coronavirus 2019 PCR April 13, Negative Thi s test has not been FDA cleared or approved. This test Interp 2019 7:13pm has been auth orized [...] epidemiologica l information. Performed on t he [employer] instrument Reference Lab Test April 13, [address] ease indicate the Triage Tier1 Performing Site 2019 7:13pm lab Test per formed or referred by The [address] [address] CSF Appearance April 13 Clear 2019 9:45pm CSF Color April 13 Colorless 2019 9:45pm CSF Volume April 13, 14 mL 2019 9:45pm Body Fluid Number of April 13, 4 Tubes 2019 9:45pm CSF WBC April 13, 0 0-5 Cell Count 2019 9:45pm performed on tube number 4 CSF RBC April 13, 0 0-9 Cell Count 2019 9:45pm performed on tube number 4 CSF Glucose April 13, 60 mg/dL 40-70 2019 9:45pm CSF Total Protein April 13, 70 mg/dL High 12-60 2019 9:45pm Urine Methadone April 13, Negative ng/mL Screen 2019 8:27pm Venous Blood pH April 13, 7.43 pH High 7.31-7.41 2019 6:45pm Venous Blood pCO2 at April 13, 39 mmHg Low 41-51 Patient Temp 2019 6:45pm Venous Blood HCO3 April 13, 25.8 mmol/L 23-30 2019 6:45pm Venous Blood Base April 13, 1.0 mmol/L -2.0-2.0 Excess 2019 6:45pm Advance Directives Advance Directive Response Recorded Date/Time Do we have a copy on file here at [facility]? No O ct2019 9:44pm Does patient have an Advanced Directive? No April 13, 2020 9:44pm Pt has a Living Will? No April 13, 2020 9 :44pm Pt has a Power of Physical Security Specialist? No April 13, 2020 9:44pm Chief Complaint and Reason for Visit Encounter Admit Date Chief Complaint Reason for Visit Admitted Inpatient April 14, 2020 Altered Mental Status Acute encephalopathy 3:32am Altered mental s tatus Fever of unknown origin Hospital Discharge Instructions No known hospital discharge instructions. Encounters Encounter Facility Location Admit/Visit Discharge/Departure Atte nding Date Date Provider Admitted [facility] 3:32am Isai Encounter Diagnosis Onset Date Acute encephalopathy Altered mental status Fever of unknown origin Functional Status No known functional status. Immunizations No known immunizations. Plan of Care No Known Plan of Care Information Social History Query Response Date Recorded Comment Alcohol Use No April 13, 2020 7:53pm Smoking Status Never smoker April 13, 2020 7:53pm Substance/Street Drug Use No April 13, 2020 7:53p m Query Response Start Date Stop Date Smoking Status Never smoker Vital Signs Vital Reading Result Reference Range Collection Date/ Time Weight 114.759 kg April 13, 2020 6:17pm Temperature 100.9 F 97.6 F-99.6 F April 14, 2020 1:30am Pulse 121 BPM 60-100 April 14, 2020 1:30am Respiration 28 RPM 12-24 April 14, 2020 1:30am Pulse Oximetry 96 % 95-100 April 14, 2020 1:30am Blood Pressure Systolic 169 100-140 April 14, 2020 1:30am Blood Pressure Diastolic 90 50-85 April 14, 2020 1:30am
--- OUTSIDE RECORDS SUMMARY | 2022-01-19 09:31 | XMS_ITS | Continuity of Care Document ---
:1950 Author Organization [facility] Address [address] [place] [address] Phone Care Team Providers Name Role Phone Isai Mcduffie Admit Provider Helene Griffin Attending Provider Juan Jose Livingston Primary Care Provider Allergies, Adverse Reactions, Alerts No known allergies. Medications Medication Status Dose Units Route Directions Qty Days Start End Ins tructions Date Date Fluzone Discontin 0.7 ML IM ONCE 0.7 April HighDose ued 10th, er Quad 2019, PF (flu vacc 2:12pm 2019 [id number](65 3:17pm yr up)-PF) 240 mcg/0.7 mL Doxycycline Active 100 MG PO TWICE A DAY April Hyclate 2019 3:02pm Problems Active Problems Medical Problem Onset Date Status Acute kidney injury Active Elevated LFTs Active Fever, unknown origin Active Sepsis Active Anaplasmosis Active Procedures Procedure Date Performed [...] Blood November 8.24 4.8-10.8 MAIN LAB , [address] [place] [address] 2019 1000/mm3 [facility] [address] 9:54am White Blood November 6.15 4.8-10.8 MAIN LAB , [address] [place] [address] 2019 1000/mm3 [place] [address] 6:21am Red Blood April 5.30 M/mm3 4.70-6.00 MAIN LAB, [address] [place] [address] 2019 [place] [address] 9:54am Red Blood April 4.61 M/mm3 4.70-6.00 MAIN LAB, [address] [place] [address] 2019 [place] [address] 6:21am Hemoglobin April 15.7 g/dL 14.0-18.0 MAIN LAB, [address] [place] [address] 2019 [place] [address] 9:54am Hemoglobin April 13.6 g/dL 14.0-18.0 MAIN LAB, [address] [place] [address] 2019 [place] [address] 6:21am Hematocrit April 47.0 % 42-52 MAIN LAB, [address] [place] [address] 2019 [place] [address] 9:54am Hematocrit November 40.5 % 42-52 MAIN LAB, [address] [place] [address] 2019 [place] [address] 6:21am Mean April 88.7 fL 80.0-94.0 MAIN LAB, [address] [facility] Corpuscular 2019 [place] [address] Volume 9:54am Mean April 87.9 fL 80.0-94.0 MAIN LAB, [address] [place] [address] Corpuscular 2019 [place] [address] Volume 6:21am Mean April 29.6 pg 27-31 MAIN LAB, [address] [facility] Corpuscular 2019 [place] [address] Hemoglobin 9:54am Mean April 29.5 pg 27-31 MAIN LAB, [address] [facility] Corpuscular 2019 [place] [address] Hemoglobin 6:21am Mean April 33.4 g/dL 33-37 MAIN LAB, [address] [place] [address] Corpuscular 2019 [place] [address] Hemoglobin 9:54am Concent Mean April 33.6 g/dL 33-37 MAIN LAB, [address] [place] [address] Corpuscular 2019 [place] [address] Hemoglobin 6:21am Concent Red Cell November 14.3 % 11.5-14.5 MAIN LAB, [address] [place] [address] Distributio 2019 [place] [address] n Width 9:54am Red Cell April 13.8 % 11.5-14.5 MAIN LAB, [address] [place] [address] Distributio 2019 [place] [address] n Width 6:21am Platelet April 316 1000/mm3 140-440 MAIN LA B, [address] [facility] Count 2019 [place] [address] 9:54am Platelet April 87 1000/mm3 140-440 MAIN LAB , [address] [place] [address] Count 2019 [place] [address] 6:21am Mean April 10.9 fL 7.4-10.4 MAIN LAB, [address] [place] [address] Platelet 2019 [place] [address] Volume 9:54am Mean November 12.6 fL 7.4-10.4 MAIN LAB, [address] [place] [address] Platelet 2019 [place] [address] Volume 6:21am Neutrophils October 81.2 % 40.0-72.0 MAIN LAB , [address] [place] [address] (%) (Auto) 2019 [place] [address] 6:01am Lymphocytes October 11.0 % 17-45 MAIN LAB , [address] [place] [address] (%) (Auto) 2019 [place] [address] 6:01am Monocytes October 6.9 % 3-11 MAIN LAB, [address] [place] [address] (%) (Auto) 2019 [place] [address] 6:01am Eosinophils October 0.0 % 0-3 MAIN LAB , [address] [place] [address] (%) (Auto) 2019 [place] [address] 6:01am Basophils October 0.3 % 0-1 MAIN LAB, [address] [place] [address] (%) (Auto) 2019 [place] [address] 6:01am Immature October 0.6 % 0-1 MAIN LAB, [address] [place] [address] [place] [address] % (Auto) 6:01am Neutrophils October 2.72 1.4-6.5 MAIN LAB , [address] [place] [address] # (Auto) 2019 1000/[place]3 [place] [address] 6:01am Lymphocytes October 0.37 1.2-3.4 MAIN LAB , [address] [place] [address] # (Auto) 2019 1000/[place]3 [place] [address] 6:01am Monocytes # October 0.23 0.0-0.8 MAIN LAB , [address] [place] [address] (Auto) 2019 1000/[place]3 [place] [address] 6:01am Eosinophils October 0.00 0.0-0.7 MAIN LAB , [address] [place] [address] # (Auto) 2019 1000/[place]3 [place] [address] 6:01am Basophils # October 0.01 0.0-0.1 MAIN LAB , [address] [place] [address] (Auto) 2019 1000/[place]3 [place] [address] 6:01am Absolute October 0.0 0-1 MAIN LAB, [address] [place] [address] [place] [address] Granulocyte 6:01am (auto Differentia October Automated MAIN LAB , [address] [place] [address] [place] [address] 6:01am Platelet March Clumped, MAIN LAB, [address] [place] [address] [place] [address] 5:12am Platelet March 2+ MAIN LAB, [address] [place] [address] Clumps, 2019 [place] [address] EDTA 5:12am Differentia March See comments Mild MAIN LAB, [address] [place] [address] [place] [address] Pathologist 6:01am and new onset 's Review thrombocytopen ia. Laboratory data reviewed. Suggest consideration with hepatitis viral serologies and further image analysis(CT of abdomen) if clinically indicated.Smea r reviewed by pathologist for senior quality technician.Jabari Feliz MD04/16/20 Erythrocyte March 2 mm/hr 0- MAIN LAB , [address] [place] [address] [place] [address] on Rate 8:45pm Urine RBC March 0-2 /hpf MAIN LAB, [address] [place] [address] [place] [address] 7:27pm Urine WBC March None seen MAIN LAB, [address] [place] [address] 2019 /[place] [address] 7:27pm Urine October None seen NONE SEEN MAIN LAB, [address] [place] [address] Bacteria 2019 /[place] [address] 7:27pm Urine Mucus March Present MAIN LAB , [address] [place] [address] [place] [address] 7:27pm Ur March Negative Negative Presumptive [facility] Streptococc 2019 negative for LABO RATORIES us 10:00pm pneumococcal pneumoniae pneumonia, Antigen suggestingno current or recent infection. Infection due to S.pneumoniae cannot be ruled out since the antigen present inthe sample may be below detection limit of the test.--------- PILO TIONAL INFORMATION--- --This assay was performed using the FDA-cleared BinaxNOWStrept ococcus pneumoniae Antigen test, a rapidimmunochr omatographic assay.Test Performed by:[address] [id number] Director: Ford Hector M.D. Ph.D.; CLIA# [id number] Urine March Negative Negative Presumptive [facility] Legionella 2019 negative for LABOR [...] --This assay was performed using the FDA-cleared BinaxNOWJalyngion nakul Urinary Antigen Test, a rapidimmunochr omatographic assay.Test Performed by:[facility] [place] [id number] Director: Ford Hector M.D. Ph.D.; CLIA# [id number] Sodium April 137 mmol/L 137-145 MAIN LAB, [address] [facility] 2019 [facility] [address] 9:54am Sodium April 138 mmol/L 137-145 MAIN LAB, [address] [place] [address] 2019 [facility] [address] 6:21am Potassium April 4.9 mmol/L 3.6-5.0 MAIN LAB, [address] [place] [address] 2019 [facility] [address] 9:54am Potassium April 3.7 mmol/L 3.6-5.0 MAIN LAB, [address] [place] [address] 2019 [facility] [address] 6:21am Chloride November 105 mmol/L 98-107 MAIN LAB, [address] [place] [address] 2019 [facility] [address] 9:54am Chloride November 107 mmol/L 98-107 MAIN LAB, [address] [place] [address] 2019 [facility] [address] 6:21am Carbon November 23 mmol/L 22-30 MAIN LAB, [address] [place] [address] Dioxide 2019 [facility] [address] Level 9:54am Carbon November 26 mmol/L 22-30 MAIN LAB, [address] [place] [address] Dioxide 2019 [facility] [address] Level 6:21am Anion Gap April 9 7-16 MAIN LAB, [address] [place] [address] [address] [place] [address] 9:54am Anion Gap April 5 12-31 MAIN LAB, [address] [place] [address] 2019 [place] [address] 6:21am Blood Urea November 13 mg/dL 02-10 MAIN LAB, [address] [place] [address] Nitrogen 2019 [place] [address] 9:54am Blood Urea November 10 mg/dL 02-10 MAIN LAB, [address] [place] [address] Nitrogen 2019 [place] [address] 6:21am Creatinine November 0.68 mg/dL 0.66-1.25 MAIN LAB , [address] [place] [address] 2019 [place] [address] 9:54am Creatinine November 0.56 mg/dL 0.66-1.25 MAIN LAB , [address] [place] [address] 2019 [place] [address] 6:21am Glomerular November > 60 mL/min >60.0 MAIN LA B, [address] [place] [address] [place] [address] Rate Calc 9:54am Glomerular November > 60 mL/min >60.0 MAIN LA B, [address] [place] [address] [place] [address] Rate Calc 6:21am Glucose November 115 mg/dL 70-100 MAIN LAB, [address] [place] [address] 2019 [place] [address] 9:54am Glucose November 87 mg/dL 70-100 MAIN LAB, [address] [place] [address] 2019 [place] [address] 6:21am Calcium November 9.1 mg/dL 8.4-10.2 MAIN LAB, [address] [place] [address] 2019 [place] [address] 9:54am Calcium November 7.9 mg/dL 8.4-10.2 MAIN LAB, [address] [place] [address] Level 2019 [place] [address] 6:21am Calcium November 9.3 mg/dL 8.4-10.2 MAIN LAB, [address] [place] [address] Adjusted 2019 [place] [address] for Albumin 9:54am Calcium November 9.0 mg/dL 8.4-10.2 MAIN LAB, [address] [place] [address] Adjusted 2019 [place] [address] for Albumin 6:21am Phosphorus March 2.8 mg/dL 2.5-4.5 MAIN LAB, [address] [place] [address] Level 2019 [facility] [address] 11:00pm Magnesium March 1.9 mg/dL 1.6-2.3 MAIN LAB, [address] [place] [address] Level 2019 [facility] [address] 11:00pm Total November 0.9 mg/dL 0.2-1.3 MAIN LAB, [address] [place] [address] Bilirubin 2019 [facility] [address] 9:54am Total November 1.0 mg/dL 0.2-1.3 MAIN LAB, [address] [place] [address] Bilirubin 2019 [facility] [address] 6:21am Direct October 0.0 mg/dL 0-0.3 MAIN LAB, [address] [place] [address] Bilirubin 2019 [facility] [address] 8:45pm Aspartate April 122 U/L 17 MAIN LAB, [address] [place] [address] Amino 2019 [facility] [address] Transf 9:54am (AST/SGOT) Aspartate April 212 U/L MAIN LAB, [address] [place] [address] Amino 2019 [facility] [address] Transf 6:21am (AST/SGOT) Alanine April 163 U/L <50 As of 10/17/19, MAIN L AB, [address] [place] [address] Aminotransf 2019 the Reference [place] [address] erase 9:54am Range for (ALT/SGPT) ALT/SGPT for adult patients has been updated. The Reference Range for ALT/SGPT has not been established for patients <18 years of age. Alanine April 143 U/L <50 As of 10/17/19, MAIN L AB, [address] [place] [address] Aminotransf 2019 the Reference [facility] [address] erase 6:21am Range for (ALT/SGPT) ALT/SGPT for adult patients has been updated. The Reference Range for ALT/SGPT has not been established for patients <18 years of age. Lactic Acid March 3.6 mmol/L 0.7-2.1 MAIN LA B, [address] [place] [address] Level 2019 [facility] [address] 6:01am Lactate April 831 U/L 313-618 Note: LDH MAIN LAB, [address] [place] [address] Dehydrogena [address] [place] [address] se 9:54am be decreased upon refrigerated or frozen storage. Lactate April 1103 U/L 313-618 Note: LDH MAIN LAB, [address] [facility] Dehydrogena [address] [place] [address] se 6:21am be decreased upon refrigerated or frozen storage. Creatine April 667 U/L 55-170 MAIN LAB, [address] [facility] Kinase 2019 [place] [address] 6:21am Total November 7.5 g/dL 6.3-8.2 MAIN LAB, [address] [place] [address] Protein 2019 [place] [address] 9:54am Total November 5.8 g/dL 6.3-8.2 MAIN LAB, [address] [place] [address] Protein 2019 [place] [address] 6:21am Albumin April 4.0 g/dL 3.5-5.0 MAIN LAB, [address] [place] [address] 2019 [place] [address] 9:54am Albumin April 2.9 g/dL 3.5-5.0 MAIN LAB, [address] [place] [address] 2019 [place] [address] 6:21am Cholesterol March 232 mg/dL 59-199 MAIN LAB , [address] [place] [address] [address] [place] [address] 11:00pm HDL March 29 mg/dL 40-60 The National MAIN LA B, [address] [facility] Cholesterol [address] [facility] [place] [address] 11:00pm Education Program (NCEP) has set the following guidelines (reference values) for cholesterol, HDL:Low HDL: <40 mg/dLNormal: 40-60 mg/dLDesirable : >60 mg/dL LDL March 182.6 mg/dL 0-129 MAIN LAB , [address] [place] [address] [place] [address] 11:00pm VLDL March 20.4 mg/dL 0-32 MAIN LAB, [address] [place] [address] [place] [address] 11:00pm Cholesterol March 8.00 0-3.9 MAIN LAB , [address] [place] [address] /HDL Ratio 2019 [place] [address] 11:00pm Triglycerid March 102 mg/dL 0-149 MAIN LAB , [address] [facility] es Level 2019 [facility] [address] 11:00pm Alkaline April 214 U/L 38-126 MAIN LAB, [address] [place] [address] Phosphatase 2019 . [place] [address] 9:54am Alkaline April 155 U/L 38-126 MAIN LAB, [address] [place] [address] Phosphatase 2019 . [place] [address] 6:21am Thyroid March 1.73 mlU/L 0.47-4.68 The results of MAIN LAB, [address] [place] [address] Stimulating 2019 this assay can . [facility] [address] Hormone 11:00pm be falsely (TSH) decreased in patients who consume Biotin. Hemoglobin March 5.08 % <5.7 <5.7%: MAIN LAB, [address] [place] [address] A1c Percent 2019 Normal5.7%-6.4 [facility] [address] 5:45pm %: Prediabetes>=6 .5%: Diagnostic for diabetesGoals for Glycemic Control in Diabetes (ADA 2018)<7.0%: A1c target for non adults with diabetes. More or less stringent glycemic goals may be appropriate for individual patients.<7.5% : A1c target for children and adolescents with type I diabetes. A lower goal is reasonable if it can be achieved without excessive hypoglycemia. Estimated October 99 mg/dL MAIN LAB, [address] [place] [address] Average 2019 [facility] [address] Glucose 5:45pm mg/dL C-Reactive March 245.8 mg/L 5-10 MAIN LAB , [address] [place] [address] Protein 2019 [place] [address] 8:45pm Influenza March Negative Negative MAIN LAB, [address] [place] [address] Type A 2019 [place] [address] (RT-PCR) 6:30pm Influenza March Negative Negative MAIN LAB, [address] [place] [address] Type B 2019 [place] [address] (RT-PCR) 6:30pm Respiratory March Negative Negative MAIN LAB , [address] [place] [address] Syncytial 2019 [place] [address] Virus 6:30pm (RT-PCR Herpes March Negative [facility] 2019 LABORATOR IES Virus I DNA 8:45pm (PCR) Herpes March Negative [facility] 2019 LABORATOR IES Virus II 8:45pm DNA (PCR) Varicella-Z March Not [facility] tony 2019 Reportable LABORATO JULIO Specimen 8:45pm Descript Varicella-Z March Negative [facility] tony Virus 2019 LABORAT ORIES DNA (PCR) 8:45pm CSF October TNP Test not [facility] Enterovirus 2019 performedResul LA BORATORIES (PCR) 8:45pm ts not available due to reference lab testing / data retrieval issues. Coronavirus March Negative Negative This test has [facility] 2019 PCR 2019 not been FDA LABORA [...] invitro diagnostic tests for detection and/or diagnosis [id number] under section 564(b)(1) of Act, 21 U.S.C ?360bbb-3(b) (1), unless the authorization is terminated orrevoked sooner.Negativ e results do not preclude 2019-nCoV infection andshould not be used as the sole basis for treatment or otherpatient management decisions. Negative results must becombined with clinical observations, patient history, andepidemiolog ical information.Pe rformed on the [facility] [place] Fusion instrument Reference March [place] Please [facility] Lab Test 2019 [facility] lab indicate the LABORA TORIES Performing 6:13pm Triage Site [id number] performed or referred by[address] [address] Varicella-Z March TNP Test not [facility] tony IgG 2019 performedResul LABO RATORIES Antibody 5:45pm ts not available due to reference lab testing / data retrieval issues. CSF March Clear MAIN LAB, [address] Appearance 2019 [place] [address] 8:45pm CSF Color March Colorless MAIN LAB, [address] [place] [address] 8:45pm CSF Volume March 14 mL MAIN LAB, [address] [facility] 2019 [place] [address] 8:45pm Body Fluid March 4 MAIN LAB, [address] [place] [address] [place] [address] Tubes 8:45pm CSF WBC March 3 0-5 Cell Count MAIN LAB, [address] [place] [address] 2019 performed [place] [address] 8:45pm tube number 4 Cell Count performed on tube number 4 CSF RBC March 2 0-9 Cell Count MAIN LAB, [address] [place] [address] 2019 performed [place] [address] 8:45pm tube number 4 Cell Count performed on tube number 4 CSF Glucose March 60 mg/dL 40-70 MAIN LAB , [address] [place] [address] 2019 . [place] [address] 8:45pm CSF Total March 70 mg/dL 12-60 MAIN LAB, [address] [place] [address] Protein 2019 [place] [address] 8:45pm Babesia March Negative Negative [facility] microti DNA 2019 LABORAT ORIES (PCR) 7:00am Babesia March Negative Negative [facility] duncani DNA 2019 LABORAT ORIES (PCR) 7:00am Babesia March Negative Negative [facility] divergens/M 2019 -----ADDITIONA LA BORATORIES O-1 (PCR) 7:00am L INFORMATION--- --This test was developed and its performance characteristic sdetermined by [facility] in a manner consistent with José Antonio ts. This test has not been cleared or approved bythe U.S. Food and Drug Administration . Anaplasma March Positive Negative [facility] phagocytoph 2019 LABORAT ORIES davon DNA 7:00am (PCR) Ehrlichia March Negative Negative [facility] chaffeensis 2019 LABORAT ORIES DNA (PCR) 7:00am Ehrlichia March Negative Negative [facility] ewingii/can 2019 LABORAT ORIES is (PCR) 7:00am Ehrlichia March Negative Negative [facility] muris-like 2019 -----ADDITIONA LAB ORATORIES DNA (PCR) 7:00am L INFORMATION--- --This test was developed and its performance characteristic sdetermined by [facility] in a manner consistent with [facility]. This test has not been cleared or approved bythe U.S. Food and Drug Administration . Borrelia March Negative Negative [facility] 2019 -----ADDITIONA LABO RATORIES (PCR) 7:00am L INFORMATION--- --This test was developed and its performance characteristic sdetermined by [facility] in a manner consistent with [facility]. This test has not been cleared or approved bythe U.S. Food and Drug Administration .Test Performed by:[address] [id number] Director: Ford Hector M.D. Ph.D.; CLIA# [id number] Urine March Negative Cutoff:200 MAIN LAB, [address] [facility] Methadone 2019 ng/[place] [address] Screen 7:27pm Venous March 7.43 pH 7.31-7.41 MAIN LAB, [address] [facility] Blood pH 2019 [place] [address] 5:45pm Venous March 39 mmHg 41-51 MAIN LAB, [address] [facility] Blood pCO2 2019 [place] [address] at Patient 5:45pm Temp Venous March 25.8 mmol/L 23-30 MAIN LAB , [address] [facility] Blood HCO3 2019 [place] [address] 5:45pm Venous October 1.0 mmol/L -2.0-2.0 MAIN LAB, [address] [place] [address] [place] [address] Excess 5:45pm Microbiology Results Procedure Source Result Collection Result Result Performin g Date/Time Date/Time Comment Site Blood Culture Blood, Left NO GROWTH April 15April MAIN LAB, [address] [facility] Antecubital AFTER 2019 9:50pm 2019 [place] [address] DAYS 7:26am Urine Culture Ur,Clean Catch April 13March MAIN LAB, [address] [facility] 2019 8:27pm 2019 [place] [address] 8:39am Gram Stain Csf April 13March [facility] LAB, [address] [place] [address] 2019 9:45pm 2019 [place] [address] 5:13am CSF Culture Csf NO GROWTH April 13March MAIN LAB, [address] [place] [address] AFTER 72 2019 9:45pm 2019 [place] [address] HOURS 8:47am Diagnostic Imaging Reports Report Dictated Date/Time Dictated By Status Electrocardiogram April 13, 2020 6:51pm Jet Buck MD completed [facility] EKG PATIENT NAME: ROCIO AUGUSTE 003 DATE [...] 04/13/2020 7:08:34 PM Referred By: Arnel Buck [facility] med By:John Buck 04/13/20 1908 Electrocardiogram April 14, 2020 2:23am Mau Nguyen MD completed [facility] EKG PATIENT NAME: ROCIO AUGUSTE [id number] DATE OF : 1950 ATTENDING PHYSICIAN: PRIMARY [...] April 14, 2020 8:19am Sherie Martinez completed [facility] CAT SCAN REPORT PATIENT NAME: ROCIO AUGUSTE [...] April 14, 2020 8:27am Sherie Martinez completed [facility] RADIOLOGY REPORT PATIENT NAME: ROCIO AUGUSTE 11 [...] 14, 2020 3:57pm Mary Vu MD completed [facility] RADIOLOGY REPORT PATIENT NAME: ROCIO AUGUSTE 11 003 DATE OF : 1950 ATTENDING/ER PHYSICIAN: Helene Griffin MD ER/ATTENDING PHYSICIAN: Mau Nguyen MD PRIMARY CARE PHYS: Out [facility] ADMITTING PHYSICIAN: Isai Mcduffie MD CONSULTING [...] 16, 2020 3:21pm Mary Vu MD completed [facility] CAT SCAN REPORT PATIENT NAME: ROCIO AUGUSTE [...] 16, 2020 4:09pm Mary Vu MD completed [facility] ULTRASOUND REPORT PATIENT NAME: ROCIO AUGUSTE 11 [...] have a copy on file here [place] [facility] No O ctober 2019 8:44pm Pt has a Living Will? No April 13, 2020 8:44pm Do we have a copy on file here at [facility]? No O ctober 2019 8:44pm Pt has a Power of Supervisor Brake Repair? No March 8:44pm Do we have a copy on file here at [facility]? 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 April 14, 2020 Isai Figueroa , Outpatient Medical 2:32am Center-[facility]ospitalis ts Discharged [facility] April 14, 2020 April 19, 2020 Maximilian Griffin Inpatient Medical 4:55am 12:11pm MD Center-Progressiv e Care Unit Registered [facility] April 21, 2020 Anisa Link Outpatient Medical 1:40pm MADISYN Browne Center-Lifestyle Medicine Departed [facility] April 23, 2020 April 23, 2020 Maximilian Grififn Clinical Medical 9:44am 9:45am MD Center-Laboratory Departed [facility] April 27April 27, 2020 Juan Jose Lima Physician/Provi Medical 2019 2:12pm 3:18pm MD Yara nik Office [facility] Visit rn [facility] Registered [facility] April 29, April 30, 2020 [facility] 2019 8:08pm 6:20pm [facility] Recent Diagnosis Onset Date Fever, unknown origin Acute kidney injury Anaplasmosis Elevated LFTs Sepsis Assessments Diagnosis Onset Date Resolution Status Fever, unknown origin acute Acute kidney injury acute Anaplasmosis acute Elevated LFTs acute Sepsis acute Family History Relationship Condition Age at [...] Immunizations Immunization Event Date Not Given Dose [employer] Vac cine Reason Number Number Informatio n Statement (VIS) Deta il Influenza High April [id number] Dose Quad 2019 Mental Status Observation Response Date Recorded Comprehension Ability Understands Concepts April 15 0 7:00pm Speech Appropriate April 14, 2020 2 :44am Clear April 14, 2020 2 :44am Medical Equipment No Medical Equipment Information available Insurance Providers Guarantor ROCIO AUGUSTE Address [address] [place] [id number] Contact Info. Home Phone: Payer Policy Id Coverage Id Subscriber's Subscriber Id Effective E xpiration Name Date Date MEDICARE [id number] ROCIO AUGUSTE [id number] PART A AND B 42 COVERAGE SELF PAY Self N/A Plan of Treatment Pt is recently d/c'd from [facility] following admission for altered mentation, lab abnormalities [...] Provider Contact Provider Address Referral Date Information [facility] Work Phone: [phone] [facility] [employer] [facility] [employer] 0 [phone] Juan Jose Livingston Work Phone: [facility] MD [phone] [place] [address] Juan Jose Livingston Work Phone: [facility] MD [phone] [employer] [phone] Future Procedures Future procedure information is unavailable Future Medications Future medication information is unavailable Patient Instructions Fever of Unknown Origin (DC) COVID 19 General Instructions- decrease the spread of coronavirus (NMC) Ehrlichiosis Infections (DC) COVID 19 General Instructions- decrease the spread of coronavirus (NMC) Social History Smoking Status Status Date of Observation Never smoked tobacco (finding) April 29, 2020 8:1 7pm Observation Status Observation Response Date of Response Alcohol Use Yes April 29, 2020 8:17pm alcohol intake frequency holidays/special occasions April 29, 2020 8:17pm only Substance/Street Drug Use No April 29, 2020 8:17pm substance use type does not use April 29, 2020 6:15pm Smoking Status Never smoker April 29, 2020 8:17pm Assigned Sex Male Vital Signs Vital Reading [...] 142019 2:41pm Height 69.5 [in_i] April 27 2 020 2:23pm Weight 105.68 kg April 27, 2 020 2:23pm Body Temperature 98.5 [degF] 97.6-99.6 April 27, 2020 2:23pm Heart Rate 84 /min 60-100 April 27, 020 2:23pm Respiratory rate 20 /min -April 27, 2020 2:23pm Oxygen saturation by Pulse 96 % 95-100 [facility] 2019 2:23pm oximetry BP Systolic 116 mm[Hg] 100-140 April 27, 2 020 2:23pm BP Diastolic 78 mm[Hg] 50-85 April 27, 2 020 2:23pm BMI (Body Mass Index) 33.9 kg/m2 April 182019 2:23pm Height 71 [in_i] April 29, 020 9:26am Weight 104.00 kg April 29, 2 020 6:15pm Body Temperature 97.5 [degF] 97.6-99.6 April 30, 2020 3:31pm Heart Rate 92 /min 60-100 April 30, 2 020 3:31pm Respiratory rate 20 /min 12-April 30, 2020 3:31pm Oxygen saturation by Pulse 99 % 95-100 2019 3:31pm oximetry BP Systolic 116 mm[Hg] 100-140 April 30 3:31pm BP Diastolic 72 mm[Hg] 50-85 April 30 3:31pm
--- OUTSIDE RECORDS SUMMARY | 2022-01-19 09:31 | XMS_ITS | Continuity of Care Document ---
:1950 Author Organization [facility] Address [address] [place] [address] Phone Care Team Providers Name Role Phone Out of Town, Provider Primary Care Provider Unavailable Isai Mcduffie Admit Provider Isai Mcduffie Attending Provider Allergies, Adverse Reactions, Alerts No allergy information available. Medications No medication information available. Problems Active Problems Medical Problem Onset Date Status Acute encephalopathy Active Fever of unknown origin Active Altered mental status Active Procedures Procedure Date Performed Status CT Head w/o Contrast April 13, 2020 6:18pm active INTERFACE ELECTROCARDIOGRAM April 13, 2020 6:20pm comple jaguar Chest 1 vw April 13, 2020 6:39pm active INTERFACE ELECTROCARDIOGRAM April 14, 2020 1:39am comple jaguar Chest 1 vw April 14, 2020 1:39am active Gram Stain April 13, 2020 active CSF Culture April 13, 2020 active Blood Culture April 13, 2020 active Urine Culture April 13, 2020 active Relevant Diagnostic Tests and/or Laboratory Data Laboratory Results Test Date/Time Result Interpretation Reference Result Comment Performing Range Site White Blood March 5.60 4.8-10.8 MAIN LAB , [address] [facility] Count 2019 1000/mm3 [facility] [address] 6:45pm Red Blood March 5.87 M/mm3 4.70-6.00 MAIN LAB, [address] [facility] Count 2019 [facility] [address] 6:45pm Hemoglobin March 17.4 g/dL 14.0-18.0 MAIN LAB, [address] [facility] 2019 [facility] [address] 6:45pm Hematocrit March 51.7 % 42-52 MAIN LAB, [address] [facility] 2019 [place] [address] 6:45pm Mean March 88.1 fL 80.0-94.0 MAIN LAB, [address] [place] [address] Corpuscular 2019 [place] [address] Volume 6:45pm Mean March 29.6 pg -31 MAIN LAB, [address] [place] [address] Corpuscular 2019 [place] [address] Hemoglobin 6:45pm Mean March 33.7 g/dL 33-37 MAIN LAB, [address] [place] [address] Corpuscular 2019 [place] [address] Hemoglobin 6:45pm Concent Red Cell March 13.2 % 11.5-14.5 MAIN LAB, [address] [place] [address] Distribution 2019 [facility] [place] [place] [address] Width 6:45pm Platelet March 146 140-440 MAIN LAB, [address] [place] [address] Count 2019 1000/mm3 [place] [address] 6:45pm Mean March 10.8 fL 7.4-10.4 MAIN LAB, [address] [place] [address] [place] [address] Volume 6:45pm Neutrophils October 84.1 % 40.0-72.0 MAIN LAB , [address] [place] [address] (%) (Auto) 2019 [place] [address] 6:45pm Lymphocytes October 6.6 % 17-45 MAIN LAB , [address] [place] [address] (%) (Auto) 2019 [place] [address] 6:45pm Monocytes October 8.6 % 3-11 MAIN LAB, [address] [place] [address] (%) (Auto) 2019 [place] [address] 6:45pm Eosinophils October 0.0 % 0-3 MAIN LAB , [address] [place] [address] (%) (Auto) 2019 [place] [address] 6:45pm Basophils October 0.2 % 0-1 MAIN LAB, [address] [place] [address] (%) (Auto) 2019 [place] [address] 6:45pm Immature October 0.5 % 0-1 MAIN LAB, [address] [place] [address] Granulocyte 2019 [place] [address] % (Auto) 6:45pm Neutrophils October 4.71 1.4-6.5 MAIN LAB , [address] [place] [address] # (Auto) 2019 1000/[place]3 [place] [address] 6:45pm Lymphocytes October 0.37 1.2-3.4 MAIN LAB , [address] [place] [address] # (Auto) 2019 1000/[place]3 [place] [address] 6:45pm Monocytes # October 0.48 0.0-0.8 MAIN LAB , [address] [place] [address] (Auto) 2019 1000/[place]3 [place] [address] 6:45pm Eosinophils October 0.00 0.0-0.7 MAIN LAB , [address] [place] [address] # (Auto) 2019 1000/mm3 [place] [address] 6:45pm Basophils # October 0.01 0.0-0.1 MAIN LAB , [address] [place] [address] (Auto) 2019 1000/[place]3 [place] [address] 6:45pm Absolute October 0.0 0-1 MAIN LAB, [address] [place] [address] [place] [address] Granulocyte 6:45pm (auto Differential March Automated MAIN LA B, [address] [place] [address] [place] [address] 6:45pm Urine RBC March 0-2 /hpf MAIN LAB, [address] [place] [address] [place] [address] 8:27pm Urine WBC March None seen MAIN LAB, [address] [place] [address] 2019 /[place] [address] 8:27pm Urine October None seen NONE SEEN MAIN LAB, [address] [place] [address] Bacteria 2019 /[place] [address] 8:27pm Urine Mucus March Present MAIN LAB , [address] [place] [address] [place] [address] 8:27pm Sodium Level March 135 mmol/L 137-145 MAIN L AB, [address] [place] [address] [place] [address] 6:45pm Potassium March 4.4 mmol/L 3.6-5.0 MAIN LAB, [address] [place] [address] [place] [address] 6:45pm Chloride March 99 mmol/L 98-107 MAIN LAB, [address] [place] [address] [place] [address] 6:45pm Carbon March 23 mmol/L 22-30 MAIN LAB, [address] [place] [address] [place] [address] Level 6:45pm Anion Gap March 13 7-16 MAIN LAB, [address] [place] [address] [place] [address] 6:45pm Blood Urea March 14 mg/dL 8-26 MAIN LAB, [address] [place] [address] [place] [address] 6:45pm Creatinine March 0.91 mg/dL 0.66-1.25 MAIN LAB , [address] [place] [address] [place] [address] 6:45pm Glomerular March > 60 >60.0 MAIN LAB, [address] [place] [address] Filtration 2019 mL/min [facility] [address] Rate Calc 6:45pm Glucose March 122 mg/dL 70-100 MAIN LAB, [address] [place] [address] [place] [address] 6:45pm Calcium March 9.3 mg/dL 8.4-10.2 MAIN LAB, [address] [place] [address] [place] [address] 6:45pm Calcium March 8.9 mg/dL 8.4-10.2 MAIN LAB, [address] [place] [address] Adjusted for 2019 [facility] [address] Albumin 6:45pm Phosphorus March 2.8 mg/dL 2.5-4.5 MAIN LAB, [address] [place] [address] [place] [address] 12:00am Magnesium March 1.9 mg/dL 1.6-2.3 MAIN LAB, [address] [place] [address] [place] [address] 12:00am Total March 1.2 mg/dL 0.2-1.3 MAIN LAB, [address] [place] [address] [place] [address] 6:45pm Aspartate March 59 U/L 17-59 MAIN LAB, [address] [place] [address] Amino Transf 2019 [facility] [place] [address] (AST/SGOT) 6:45pm Alanine March 33 U/L <50 As of 10/17/19, MAIN L AB, [address] [place] [address] Aminotransfe 2019 the Reference [facility] [address] rase 6:45pm Range for (ALT/SGPT) ALT/SGPT for adult patients has been updated. The Reference Range for ALT/SGPT has not been established for patients <18 years of age. Lactic Acid March 2.8 mmol/L 0.7-2.1 MAIN LA B, [address] [place] [address] [place] [address] 12:00am Total March 9.0 g/dL 6.3-8.2 MAIN LAB, [address] [place] [address] [place] [address] 6:45pm Albumin March 4.8 g/dL 3.5-5.0 MAIN LAB, [address] [place] [address] [address] [place] [address] 6:45pm Cholesterol March 232 mg/dL 59-199 MAIN LAB , [address] [place] [address] 2019 [facility] [address] 12:00am HDL March 29 mg/dL 40-60 [facility] MAIN LA B, [address] [place] [address] Cholesterol 2019 [place]olesterol [place] [address] 12:00am Education Program (NCEP) has set the following guidelines (reference values) for cholesterol, HDL:Low HDL: <40 mg/dLNormal: 40-60 mg/dLDesirable: >60 mg/dL LDL March 182.6 0-129 MAIN LAB, [address] [place] [address] Cholesterol 2019 mg/dL [facility] [address] 12:00am VLDL March 20.4 mg/dL 0-32 MAIN LAB, [address] [place] [address] Cholesterol 2019 [place] [address] 12:00am Cholesterol/ March 8.00 0-3.9 MAIN LA B, [address] [place] [address] [place] [address] 12:00am Triglyceride March 102 mg/dL 0-149 MAIN LA B, [address] [place] [address] [address] [place] [address] 12:00am Alkaline March 108 U/L 38-126 MAIN LAB, [address] [place] [address] Phosphatase 2019 [place] [address] 6:45pm Thyroid March 1.73 mlU/L 0.47-4.68 The results of MAIN LAB, [address] [place] [address] Stimulating 2019 this assay can [facility] [address] Hormone 12:00am be falsely (TSH) decreased in patients who consume Biotin. Hemoglobin March 5.08 % <5.7 <5.7%: MAIN LAB, [address] [facility] A1c Percent 2019 Normal5.7%-6.4% [place] [address] 6:45pm : Prediabetes>=6. 5%: Diagnostic for diabetesGoals for Glycemic Control in Diabetes (ADA 2018)<7.0%: A1c target for non adults with diabetes. More or less stringent glycemic goals may be appropriate for individual patients.<7.5%: A1c target for children and adolescents with type I diabetes. A lower goal is reasonable if it can be achieved without excessive hypoglycemia. Estimated March 99 mg/dL MAIN LAB, [address] [facility] Average [address] [place] [address] Glucose 6:45pm mg/dL Influenza March Negative Negative MAIN LAB, [address] [facility] Type A 2019 [facility] [place] [address] (RT-PCR) 7:30pm Influenza March Negative Negative MAIN LAB, [address] [facility] Type B 2019 [place] [address] (RT-PCR) 7:30pm Respiratory March Negative Negative MAIN LAB , [address] [facility] Syncytial 2019 [place] [address] Virus 7:30pm (RT-PCR Coronavirus March Negative Negative This test has [facility] 2019 PCR 2019 not been FDA LABORA [employer]ORIES Interp 7:13pm cleared or approved. This testhas been authorized by FDA under an EUA for use byauthorized laboratories. This test has been authorized onlyfor detection of nucleic acid from 2019-nCoV, not for anyother viruses or pathogens. This test is only authorizedfor the duration of the declaration that circumstancesex ist justifying the authorization of emergency use of invitro diagnostic tests for detection and/or diagnosis [id number] under section 564(b)(1) of Act, 21 U.S.C ?360bbb-3(b) (1), unless the authorization is terminated orrevoked sooner.Negative results do not preclude 2019-nCoV infection andshould not be used as the sole basis for treatment or otherpatient management decisions. Negative results must becombined with clinical observations, patient history, andepidemiologi gaurang information.Per formed on the [employer] [place] Fusion instrument Reference March [place] Please indicate [facility] the Triage LABORATO JULIO Performing 7:13pm [id number] Site performed or referred by[address] [address] CSF March Clear MAIN LAB, [address] [facility] Appearance [address] [place] [address] 9:45pm CSF Color March Colorless MAIN LAB, [address] [facility] [address] [place] [address] 9:45pm CSF Volume March 14 mL MAIN LAB, [address] [place] [address] [place] [address] 9:45pm Body Fluid March 4 MAIN LAB, [address] [place] [address] [place] [address] Tubes 9:45pm CSF WBC March 0 0-5 Cell Count MAIN LAB, [address] [place] [address] [place] [address] 9:45pm tube number 4 CSF RBC March 0 0-9 Cell Count MAIN LAB, [address] [place] [address] [place] [address] 9:45pm tube number 4 CSF Glucose March 60 mg/dL 40-70 MAIN LAB , [address] [place] [address] [place] [address] 9:45pm CSF Total March 70 mg/dL 12-60 MAIN LAB, [address] [place] [address] [place] [address] 9:45pm Urine March Negative Cutoff:200 MAIN LAB, [address] [place] [address] Methadone 2019 ng/[place] [address] Screen 8:27pm Venous Blood March 7.43 pH 7.31-7.41 MAIN LA B, [address] [facility] pH [address] [place] [address] 6:45pm Venous Blood March 39 mmHg 41-51 MAIN LA B, [address] [facility] pCO2 at 2019 [place] [address] Patient Temp 6:45pm Venous Blood March 25.8 23-30 MAIN LA B, [address] [facility] HCO3 2019 mmol/[place] [address] 6:45pm Venous Blood March 1.0 mmol/L -2.0-2.0 MAIN L AB, [address] [facility] [address] [place] [address] 6:45pm Diagnostic Imaging Reports Report Dictated Date/Time Dictated By Status Electrocardiogram April 13, 2020 6:51pm Jet Buck MD completed [facility] EKG PATIENT NAME: ROCIO AUGUSTE 003 [...] 04/13/2020 7:08:34 PM Referred By: Arnel Buck [facility] med By:John Buck 04/13/20 1908 Electrocardiogram April 14, 2020 2:23am Mau Nguyen MD completed [facility] EKG PATIENT NAME: ROCIO AUGUSTE [id number] DATE OF : 1950 ATTENDING PHYSICIAN: PRIMARY CARE PHYS: [facility] DICTATING PHYSICIAN: Mau Nguyen MD REPORT STATUS: [...] Mau Nguyen Confirmed By:Daria Nguyen 04/14/20 0234 Advance Directives Advance Directive Response Recorded Date/Time Does patient have an Advanced Directive? No April 13, 2020 9:44pm Do we have a copy on file here [place] [facility] No O ctober 2019 9:44pm Pt has a Living Will? No April 13, 2020 9:44pm Do we have a copy on file here at [facility] No O ctober 2019 9:44pm Pt has a Power of Crusher [employer]man? No March 9:44pm Do we have a copy on file here at [facility] No O ctober 2019 9:44pm Chief Complaint and Reason for Visit Chief Complaint Altered Mental Status Reason for Visit Acute encephalopathy Altered mental status Fever of unknown origin Encounters Encounter Location(s) Arrival/Admit Date Discharge/Depart Date Provider(s) Admitted [facility] April 14, 2020 Isai Figueroa , Inpatient Medical 3:32am [facility] Unit Recent Diagnosis Onset Date Acute encephalopathy Altered mental status Fever of unknown origin Assessments Diagnosis Onset Date Resolution Status Acute encephalopathy acute Altered mental status acute Fever of unknown origin acute Functional Status No Functional Status information available Goals Goals may be documented in an alternate section. Mental Status No Mental Status Information Available Medical Equipment No Medical Equipment Information available Insurance Providers Guarantor ROCIO Princess AUGUSTE Address [address] [place] [address] Contact Info. Home Phone: Payer Policy Id Coverage Id Subscriber's Subscriber Id Effective E xpiration Name Date Date SELF PAY Self N/A Social History Smoking Status Status Date of Observation Never smoked tobacco (finding) April 13, 2020 7:53 pm Observation Status Observation Response Date of Response Alcohol Use No April 13, 2020 7 :53pm Substance/Street Drug Use No April 13, 2020 7:53pm Smoking Status Never smoker April 13, 2020 7 :53pm Assigned Sex Male Vital Signs Vital Reading Result Reference Range Collection Date/ Time Weight 114.75 kg April 13 6:17pm Body Temperature 100.9 [degF] 97.6-99.6 April 14, 2 020 1:30am Heart Rate 121 /min 60-100 April 14 1:30am Respiratory rate 28 /min 12-24 April 14, 2 020 1:30am Oxygen saturation by Pulse 96 % 95-[facility] oximetry BP Systolic 169 mm[Hg] 100-140 October 28th, 20 20 1:30am BP Diastolic 90 mm[Hg] 50-85 April 14 1:30am
--- OUTSIDE RECORDS SUMMARY | 2022-01-19 09:31 | XMS_ITS | Continuity of Care Document ---
:1950 Author Organization Address [address] [place] [address] Phone Care Team Providers Name Role Phone Isai Mcduffie Admit Provider Helene Griffin Attending Provider Juan Jose Livingston Primary Care Provider Ashly Diggs V Admit Provider Ashly Diggs V Attending Provider Allergies, Adverse Reactions, Alerts No known allergies. Medications Medication Status Dose Units Route Directions Qty Days Start End Ins tructions Date Date Fluzone Discontin 0.7 ML IM ONCE 0.7 Aprilb HighDose ued , er Quad 2019 (flu vacc 2:12pm 2019 [id number](65 3:17pm yr up)-PF) 240 mcg/0.7 mL Doxycycline Active 100 MG PO TWICE A DAY 20 10 April 3:02pm Problems Active Problems Medical Problem Onset Date Status Fever, unknown origin Active Sepsis Active Procedures Procedure Date Performed Status CT [...] April 14, 2020 a ctive Approach, Diagnostic INTERFACE ELECTROCARDIOGRAM April 29, 2020 9:30am compl eted Chest 1 vw April 29, 2020 9:29am completed ED US ECHO Transthoracic April 29, 2020 10:32am complet ed Blood Culture April 29, 2020 active Relevant Diagnostic Tests and/or Laboratory Data Laboratory Results Test Date/Time Result Interpretation Reference Result Comment Performing Range Site White Blood November 8.24 4.8-10.8 MAIN LAB , [address] [facility] Count 2019 1000/mm3 [place] [address] 9:54am White Blood April 6.15 4.8-10.8 MAIN LAB , [address] [facility] Count 2019 1000/mm3 [place] [address] 6:21am White Blood April 8.14 4.8-10.8 MAIN LAB , [address] [facility] Count 2019 1000/mm3 . [facility] [place] [address] 10:00am Red Blood April 5.30 M/mm3 4.70-6.00 MAIN LAB, [address] Count 2019 [place] [address] 9:54am Red Blood April 4.61 M/mm3 4.70-6.00 MAIN LAB, [address] [facility] Count 2019 [place] [address] 6:21am Red Blood April 5.63 M/mm3 4.70-6.00 MAIN LAB, [address] Count 2019 [place] [address] 10:00am Hemoglobin April 15.7 g/dL 14.0-18.0 MAIN LAB, [address], 2020 [place] [address] 9:54am Hemoglobin November 13.6 g/dL 14.0-18.0 MAIN LAB, [address] [place] [address] 2019 [place] [address] 6:21am Hemoglobin November 16.7 g/dL 14.0-18.0 MAIN LAB, [address] [place] [address] 2019 [place] [address] 10:00am Hematocrit April 47.0 % 42-52 MAIN LAB, [address] [place] [address] 2019 [place] [address] 9:54am Hematocrit November 40.5 % 42-52 MAIN LAB, [address] [place] [address] 2019 [place] [address] 6:21am Hematocrit April 50.1 % 42-52 MAIN LAB, [address] [place] [address] 2019 [facility] [place] [address] 10:00am Mean April 88.7 fL 80.0-94.0 MAIN LAB, [address] [place] [address] 2019 [place] [address] Volume 9:54am Mean April 87.9 fL 80.0-94.0 MAIN LAB, [address] [place] [address] 2019 [place] [address] Volume 6:21am Mean April 89.0 fL 80.0-94.0 MAIN LAB, [address] [place] [address] 2019 [place] [address] Volume 10:00am Mean April 29.6 pg 27-31 MAIN LAB, [address] [place] [address] 2019 [place] [address] Hemoglobin 9:54am Mean April 29.5 pg 27-31 MAIN LAB, [address] [place] [address] 2019 [place] [address] Hemoglobin 6:21am Mean April 29.7 pg 27-31 MAIN LAB, [address] [place], [place] [address]la 2019 [facility] [place] [address] Hemoglobin 10:00am Mean April 33.4 g/dL 33-37 MAIN LAB, [address] [place] [address] 2019 [facility] [address] Hemoglobin 9:54am Concent Mean April 33.6 g/dL 33-37 MAIN LAB, [address] [place] [address] 2019 [facility] [address] Hemoglobin 6:21am Concent Mean April 33.3 g/dL 33-37 MAIN LAB, [address] [place] [address] [place] [address] Hemoglobin 10:00am Concent Red Cell November 14.3 % 11.5-14.5 MAIN LAB, [address] [place] [address] [facility] [place] [address] n Width 9:54am Red Cell November 13.8 % 11.5-14.5 MAIN LAB, [address] [place] [address] [place] [facility] [place] [address] n Width 6:21am Red Cell November 14.5 % 11.5-14.5 MAIN LAB, [address] [place] [address] Distributio 2019 . [place] [address] n Width 10:00am Platelet April 316 1000/mm3 140-440 MAIN LA B, [address] [place] [address] Count 2019 [place] [address] 9:54am Platelet November 87 1000/mm3 140-440 MAIN LAB , [address] [place] [address] Count 2019 [place] [address] 6:21am Platelet November 102 1000/mm3 140-440 MAIN LA B, [address] [facility] Count 2019 . [facility] [place] [address] 10:00am Mean April 10.9 fL 7.4-10.4 MAIN LAB, [address] [place] [address] Platelet 2019 [place] [address] Volume 9:54am Mean April 12.6 fL 7.4-10.4 MAIN LAB, [address] [place] [address] Platelet 2019 [place] [address] Volume 6:21am Mean April 12.1 fL 7.4-10.4 MAIN LAB, [address] [place] [address] Platelet 2019 . [facility] [place] [address] Volume 10:00am Neutrophils October 81.2 % 40.0-72.0 MAIN LAB , [address] [place] [address] (%) (Auto) 2019 [facility] [place] [address] 6:01am Neutrophils November 78.9 % 40.0-72.0 MAIN LAB , [address] [place] [address] (%) (Auto) 2019 . [facility] [place] [address] 10:00am Lymphocytes October 11.0 % 17-45 MAIN LAB , [address] [place] [address] (%) (Auto) 2019 . [facility] [place] [address] 6:01am Lymphocytes November 14.1 % 17-45 MAIN LAB , [address] [place] [address] (%) (Auto) 2019 [place] [address] 10:00am Monocytes October 6.9 % 3-11 MAIN LAB, [address] [place] [address] (%) (Auto) 2019 [place] [address] 6:01am Monocytes November 6.4 % 3-11 MAIN LAB, [address] [place] [address] (%) (Auto) 2019 [place] [address] 10:00am Eosinophils October 0.0 % 0-3 MAIN LAB , [address] [place] [address] (%) (Auto) 2019 [place] [address] 6:01am Eosinophils November 0.0 % 0-3 MAIN LAB , [address] [place] [address] (%) (Auto) 2019 [place] [address] 10:00am Basophils October 0.3 % 0-1 MAIN LAB, [address] [place] [address] (%) (Auto) 2019 [place] [address] 6:01am Basophils November 0.2 % 0-1 MAIN LAB, [address] [place] [address] (%) (Auto) 2019 [place] [address] 10:00am Immature October 0.6 % 0-1 MAIN LAB, [address] [place] [address] [place] [address] % (Auto) 6:01am Immature November 0.4 % 0-1 MAIN LAB, [address] [place] [address] [place] [address] % (Auto) 10:00am Neutrophils October 2.72 1.4-6.5 MAIN LAB , [address] [place] [address] # (Auto) 2019 1000/mm3 [place] [address] 6:01am Neutrophils November 6.42 1.4-6.5 MAIN LAB , [address] [place] [address] # (Auto) 2019 1000/[place]3 [place] [address] 10:00am Lymphocytes October 0.37 1.2-3.4 MAIN LAB , [address] [place] [address] # (Auto) 2019 1000/[place]3 [place] [address] 6:01am Lymphocytes November 1.15 1.2-3.4 MAIN LAB , [address] [place] [address] # (Auto) 2019 1000/[place]3 [place] [address] 10:00am Monocytes # October 0.23 0.0-0.8 MAIN LAB , [address] [place] [address] (Auto) 2019 1000/[place]3 [place] [address] 6:01am Monocytes # November 0.52 0.0-0.8 MAIN LAB , [address] [place] [address] (Auto) 2019 1000/[place]3 [place] [address] 10:00am Eosinophils October 0.00 0.0-0.7 MAIN LAB , [address] [place] [address] # (Auto) 2019 1000/[place]3 [place] [address] 6:01am Eosinophils November 0.00 0.0-0.7 MAIN LAB , [address] [place] [address] # (Auto) 2019 1000/[place]3 [place] [address] 10:00am Basophils # October 0.01 0.0-0.1 MAIN LAB , [address] [place] [address] (Auto) 2019 1000/[place]3 [place] [address] 6:01am Basophils # November 0.02 0.0-0.1 MAIN LAB , [address] [place] [address] (Auto) 2019 1000/[place]3 [place] [address] 10:00am Absolute October 0.0 0-1 MAIN LAB, [address] [place] [address] [place] [address] Granulocyte 6:01am (auto Absolute November 0.0 0-1 MAIN LAB, [address] [place] [address] [place] [address] Granulocyte 10:00am (auto Differentia October Automated MAIN LAB , [address] [place] [address] [place] [address] 6:01am Differentia November Automated MAIN LAB , [address] [place] [address] [place] [address] 10:00am Platelet October Clumped, MAIN LAB, [address] [place] [address] [place] [address] 5:12am Platelet October 2+ MAIN LAB, [address] [place] [address] Clumps, 2019 [place] [address] EDTA 5:12am Differentia October See comments Mild MAIN LAB, [address] [place] [address] [place] [address] Pathologist 6:01am and new onset 's Review thrombocytopen ia. Laboratory data reviewed. Suggest consideration with hepatitis viral serologies and further image analysis(CT of abdomen) if clinically indicated.Smea r reviewed by pathologist for manager quality systems.Jabari Feliz MD04/16/20 Erythrocyte March 2 mm/hr 0-30 MAIN LAB , [address] [facility] Sedimentati [address] [place] [address] on Rate 8:45pm Urine RBC March 0-2 /hpf MAIN LAB, [address] [facility] [address] [place] [address] 7:27pm Urine WBC March None seen MAIN LAB, [address] [facility] 2019 /[place] [address] 7:27pm Urine March None seen NONE SEEN MAIN LAB, [address] [facility] Bacteria 2019 /[place] [address] 7:27pm Urine Mucus March Present MAIN LAB , [address] [facility] [address] [place] [address] 7:27pm Ur March Negative Negative Presumptive [facility] Streptococc 2019 negative for LABO RATORIES us 10:00pm pneumococcal pneumoniae pneumonia, Antigen suggestingno current or recent infection. Infection due to S.pneumoniae cannot be ruled out since the antigen present inthe sample may be below detection limit of the test.--------- PILO TIONAL INFORMATION--- --This assay was performed using the FDA-cleared BinaxNOWStrept ococcus pneumoniae Antigen test, a rapidimmunochr omatographic assay.Test Performed by:[facility] [place], [place] [address]Rmi Director: Ford Hector M.D. Ph.D.; CLIA# [id number] Urine March Negative Negative Presumptive [facility] Legionella 2019 negative for LABOR ATORIES [...] Antigen Test, a rapidimmunochr omatographic assay.Test Performed by:[facility] [place] [id number] Director: Ford Hector M.D. Ph.D.; CLIA# [id number] Sodium November 137 mmol/L 137-145 MAIN LAB, [address] [facility] 2019 [place] [address] 9:54am Sodium November 138 mmol/L 137-145 MAIN LAB, [address] [place] [address] 2019 [place] [address] 6:21am Sodium November 136 mmol/L 137-145 MAIN LAB, [address] [place] [address] [place] [address] 10:00am Potassium November 4.9 mmol/L 3.6-5.0 MAIN LAB, [address] [place] [address] 2019 [place] [address] 9:54am Potassium November 3.7 mmol/L 3.6-5.0 MAIN LAB, [address] [place] [address] 2019 [place] [address] 6:21am Potassium November 4.5 mmol/L 3.6-5.0 MAIN LAB, [address] [place] [address] [place] [address] 10:00am Chloride November 105 mmol/L 98-107 MAIN LAB, [address] [facility] 2019 [place] [address] 9:54am Chloride November 107 mmol/L 98-107 MAIN LAB, [address] [place] [address] 2019 [place] [address] 6:21am Chloride November 100 mmol/L 98-107 MAIN LAB, [address] [place] [address] [place] [address] 10:00am Carbon November 23 mmol/L 22-30 MAIN LAB, [address] [place] [address] Dioxide 2019 [place] [address] Level 9:54am Carbon November 26 mmol/L 22-30 MAIN LAB, [address] [place] [address] Dioxide 2019 [place] [address] Level 6:21am Carbon November 19 mmol/L 22-30 MAIN LAB, [address] [facility] Dioxide [address] [place] [address] Level 10:00am Anion Gap April 9 - MAIN LAB, [address] [place] [address] 2019 [place] [address] 9:54am Anion Gap April 2212-31 MAIN LAB, [address] [place] [address] 2019 [place] [address] 6:21am Anion Gap April 17 12-31 MAIN LAB, [address] [place] [address] [place] [address] 10:00am Blood Urea April 13 mg/dL 02-10 MAIN LAB, [address] [place] [address] Nitrogen 2019 [place] [address] 9:54am Blood Urea November 10 mg/dL 02-10 MAIN LAB, [address] [place] [address] Nitrogen 2019 [place] [address] 6:21am Blood Urea November 25 mg/dL 02-10 MAIN LAB, [address] [place] [address] [place] [address] 10:00am Creatinine November 0.68 mg/dL 0.66-1.25 MAIN LAB , [address] [place] [address] 2019 [place] [address] 9:54am Creatinine November 0.56 mg/dL 0.66-1.25 MAIN LAB , [address] [place] [address] 2019 [place] [address] 6:21am Creatinine November 1.14 mg/dL 0.66-1.25 MAIN LAB , [address] [place] [address] [place] [address] 10:00am Glomerular November > 60 mL/min >60.0 MAIN LA B, [address] [place] [address] [place] [address] Rate Calc 9:54am Glomerular November > 60 mL/min >60.0 MAIN LA B, [address] [place] [address] [place] [address] Rate Calc 6:21am Glomerular November > 60 mL/min >60.0 MAIN LA B, [address] [place] [address] [place] [address] Rate Calc 10:00am Glucose November 115 mg/dL 70-100 MAIN LAB, [address] [place] [address] 2019 [place] [address] 9:54am Glucose November 87 mg/dL 70-100 MAIN LAB, [address] [place] [address] 2019 [place] [address] 6:21am Glucose November 121 mg/dL 70-100 MAIN LAB, [address] [place] [address] 2019 [facility] [place] [address] 10:00am Calcium November 9.1 mg/dL 8.4-10.2 MAIN LAB, [address] [place] [address] 2019 [facility] [address] 9:54am Calcium November 7.9 mg/dL 8.4-10.2 MAIN LAB, [address] [place] [address] 2019 [facility] [address] 6:21am Calcium November 8.9 mg/dL 8.4-10.2 MAIN LAB, [address] [place] [address] 2019 [facility] [place] [address] 10:00am Calcium November 9.3 mg/dL 8.4-10.2 MAIN LAB, [address] [place] [address] Adjusted 2019 [facility] [address] for Albumin 9:54am Calcium November 9.0 mg/dL 8.4-10.2 MAIN LAB, [address] [place] [address] Adjusted 2019 [facility] [address] for Albumin 6:21am Calcium November 9.1 mg/dL 8.4-10.2 MAIN LAB, [address] [place] [address] Adjusted 2019 [facility] [place] [address] for Albumin 10:00am Phosphorus October 2.8 mg/dL 2.5-4.5 MAIN LAB, [address] [place] [address] 2019 [facility] [place] [address] 11:00pm Magnesium October 1.9 mg/dL 1.6-2.3 MAIN LAB, [address] [place] [address] 2019 [facility] [place] [address] 11:00pm Total November 0.9 mg/dL 0.2-1.3 MAIN LAB, [address] [place] [address] Bilirubin 2019 [place] [address] 9:54am Total November 1.0 mg/dL 0.2-1.3 MAIN LAB, [address] [place] [address] Bilirubin 2019 [place] [address] 6:21am Total November 1.9 mg/dL 0.2-1.3 MAIN LAB, [address] [place] [address] Bilirubin 2019 [facility] [place] [address] 10:00am Direct October 0.0 mg/dL 0-0.3 MAIN LAB, [address] [place] [address] Bilirubin 2019 [facility] [place] [address] 8:45pm Aspartate April 122 U/L MAIN LAB, [address] [facility] Amino 2019 [facility] [address] Transf 9:54am (AST/SGOT) Aspartate April 212 U/L MAIN LAB, [address] [place] [address] Amino 2019 [place] [address]398 Transf 6:21am (AST/SGOT) Aspartate April 121 U/L MAIN LAB, [address] [place] [address] Amino 2019 [facility] [address] Transf 10:00am (AST/SGOT) Alanine April 163 U/L <50 As of 10/17/19, MAIN L AB, [address] [place] [address] Aminotransf 2019 the Reference [place] [address] erase 9:54am Range for (ALT/SGPT) ALT/SGPT for adult patients has been updated. The Reference Range for ALT/SGPT has not been established for patients <18 years of age. Alanine April 143 U/L <50 As of 10/17/19, MAIN L AB, [address] [place] [address] Aminotransf 2019 the Reference [place] [address] erase 6:21am Range for (ALT/SGPT) ALT/SGPT for adult patients has been updated. The Reference Range for ALT/SGPT has not been established for patients <18 years of age. Alanine April 77 U/L <50 As of 10/17/19, MAIN L AB, [address] [place] [address] Aminotransf 2019 the Reference [place] [address] erase 10:00am Range for (ALT/SGPT) ALT/SGPT for adult patients has been updated. The Reference Range for ALT/SGPT has not been established for patients <18 years of age. Lactic Acid March 3.6 mmol/L 0.7-2.1 MAIN LA B, [address] [facility] Level 2019 [facility] [address] 6:01am Lactic Acid April 5.7 mmol/L 0.7-2.1 MAIN LA B, [address] [place] [address] Level 2019 [facility] [address] 2:17pm Lactate April 831 U/L 313-618 Note: [facility] MAIN LAB, [address] [place] [address] Dehydrogena 2019 activity can [facility] [address] se 9:54am be decreased upon refrigerated or frozen storage. Lactate April 1103 U/L 313-618 Note: [facility] MAIN LAB, [address] [place] [address] Dehydrogena 2019 activity can [facility] [address] se 6:21am be decreased upon refrigerated or frozen storage. Creatine April 667 U/L 55-170 MAIN LAB, [address] [place] [address] Kinase 2019 [facility] [address] 6:21am Troponin I April 0.038 ng/mL 0-0.034 Reference MAIN LA B, [address] [place] [address] 2019 Range: <0.034 [facility] [address] 10:00am ng/mL AMI Cut-off 0.120 ng/mLThe results of this assay can be falsely decreased in patients who consume Biotin. Total April 7.5 g/dL 6.3-8.2 MAIN LAB, [address] [place] [address] Protein 2019 [facility] [address] 9:54am Total April 5.8 g/dL 6.3-8.2 MAIN LAB, [address] [place] [address] Protein 2019 [facility] [address] 6:21am Total April 8.3 g/dL 6.3-8.2 MAIN LAB, [address] [place] [address] Protein 2019 [facility] [address] 10:00am Albumin April 4.0 g/dL 3.5-5.0 MAIN LAB, [address] [place] [address] 2019 [facility] [address] 9:54am Albumin April 2.9 g/dL 3.5-5.0 MAIN LAB, [address] [place] [address] 2019 [facility] [address] 6:21am Albumin April 4.0 g/dL 3.5-5.0 MAIN LAB, [address] [place] [address] 2019 [facility] [address] 10:00am Cholesterol March 232 mg/dL 59-199 MAIN LAB , [address] [place] [address] Level 2019 [facility] [address] 11:00pm HDL March 29 mg/dL 40-60 The National MAIN LA B, [address] [place] [address] Cholesterol 2019 Cholesterol [facility] [address] 11:00pm Education Program (NCEP) has set the following guidelines (reference values) for cholesterol, HDL:Low HDL: <40 mg/dLNormal: 40-60 mg/dLDesirable : >60 mg/dL LDL March 182.6 mg/dL 0-129 MAIN LAB , [address] [facility] Cholesterol 2019 [facility] [address] 11:00pm VLDL March 20.4 mg/dL 0-32 MAIN LAB, [address] [facility] Cholesterol 2019 [place] [address] 11:00pm Cholesterol March 8.00 0-3.9 MAIN LAB , [address] [facility] /HDL Ratio 2019 [place] [address] 11:00pm Triglycerid March 102 mg/dL 0-149 MAIN LAB , [address] [facility] es Level 2019 [facility] [address] 11:00pm Alkaline April 214 U/L 38-126 MAIN LAB, [address] [place] [address] Phosphatase 2019 [place] [address] 9:54am Alkaline November 155 U/L 38-126 MAIN LAB, [address] [place] [address] Phosphatase 2019 [place] [address] 6:21am Alkaline November 181 U/L 38-126 MAIN LAB, [address] [place] [address] Phosphatase 2019 [facility] [address] 10:00am Thyroid March 1.73 mlU/L 0.47-4.68 The results of MAIN LAB, [address] [place] [address] Stimulating 2019 this assay can [facility] [address] Hormone 11:00pm be falsely (TSH) decreased in patients who consume Biotin. Hemoglobin March 5.08 % <5.7 <5.7%: MAIN LAB, [address] [place] [address] A1c Percent 2019 Normal5.7%-6.4 [facility] [address] 5:45pm %: Prediabetes>=6 .5%: Diagnostic for diabetesGoals [...] Estimated March 99 mg/dL MAIN LAB, [address] [facility] Average 2019 [facility] [address] Glucose 5:45pm mg/dL C-Reactive March 245.8 mg/L 10-25 MAIN LAB , [address] [facility] Protein [address] [place] [address] 8:45pm Influenza March Negative Negative MAIN LAB, [address] Type A 2019 [place] [address] (RT-PCR) 6:30pm Influenza March Negative Negative MAIN LAB, [address] Type B 2019 [place] [address] (RT-PCR) 6:30pm Respiratory March Negative Negative MAIN LAB , [address] Syncytial 2019 [place] [address] Virus 6:30pm (RT-PCR SARS-CoV-2 April Negative Negative This test is MAIN L AB, [address] [facility] RNA [address] [place] [address] (RT-PCR) 11:55am under the Food and Drug Administration 's Emergency Use Authorization (EUA). Herpes March Negative [facility] Simplex 2019 LABORATOR IES Virus I DNA 8:45pm (PCR) Herpes March Negative [facility] Simplex 2019 LABORATOR IES Virus II 8:45pm DNA (PCR) Varicella-Z March Not [facility] tony 2019 Reportable LABORATO JULIO Specimen 8:45pm Descript Varicella-Z March Negative [facility] tony Virus 2019 LABORAT ORIES DNA (PCR) 8:45pm CSF March TNP Test not [facility] Enterovirus 2019 performedResul LA BORATORIES (PCR) 8:45pm ts not available due to reference lab testing / data retrieval issues. Coronavirus March Negative Negative This test has [facility] 2019 PCR 2019 not been FDA LABORA TORIES Interp 6:13pm cleared or approved. This testhas been authorized by FDA under an EUA for use byauthorized laboratories. This test has been authorized onlyfor detection of nucleic acid from 2018-nCo, not for anyother viruses or pathogens. This test is only authorizedfor the duration of the declaration that circumstancese xist justifying the authorization of emergency use of invitro diagnostic tests for detection and/or diagnosis [id number] under section 564(b)(1) of Act, 21 U.S.C ?360bbb-3(b) (1), unless the authorization is terminated orrevoked sooner.Negativ e results do not preclude 2019-nCoV infection andshould not be used as the sole basis for treatment or otherpatient management decisions. Negative results must becombined with clinical observations, patient history, andepidemiolog ical information.Pe rformed on the [facility] [place] Fusion instrument Reference March [place] Please [facility] Lab Test 2019 [facility] lab indicate the LABORA MIKE Performing 6:13pm Triage Site [id number] performed or referred by[address] [address] Varicella-Z March TNP Test not [facility] tony IgG 2019 performedResul LABO RATORIES Antibody 5:45pm ts not available due to reference lab testing / data retrieval issues. CSF March Clear MAIN LAB, [address] [place] [address] [place] [address] 8:45pm CSF Color March Colorless MAIN LAB, [address] [place] [address] [place] [address] 8:45pm CSF Volume March 14 mL MAIN LAB, [address] [place] [address] [place] [address] 8:45pm Body Fluid March 4 MAIN LAB, [address] [place] [address] [place] [address] Tubes 8:45pm CSF WBC March 3 0-5 Cell Count MAIN LAB, [address] [place] [address] [place] [address] 8:45pm tube number 4 Cell Count performed on tube number 4 CSF RBC March 2 0-9 Cell Count MAIN LAB, [address] [place] [address] [place] [address] 8:45pm tube number 4 Cell Count performed on tube number 4 CSF Glucose March 60 mg/dL 40-70 MAIN LAB , [address] [place] [address] [place] [address] 8:45pm CSF Total March 70 mg/dL 12-60 MAIN LAB, [address] [place] [address] [place] [address] 8:45pm Babesia March Negative Negative [facility] microti DNA 2019 LABORAT ORIES (PCR) 7:00am Babesia March Negative Negative [facility] duncani DNA 2019 LABORAT ORIES (PCR) 7:00am Babesia March Negative Negative [facility] divergens/M 2019 -----ADDITIONA LA BORATORIES O-1 (PCR) 7:00am L INFORMATION--- --This test was developed and its performance characteristic sdetermined by [facility] in a manner consistent with CLIArequiremen ts. This test has not been cleared or approved bythe U.S. Food and Drug Administration . Anaplasma March Positive Negative [facility] phagocytoph 2019 LABORAT ORIES davon DNA 7:00am (PCR) Ehrlichia March Negative Negative [facility] chaffeensis 2019 LABORAT ORIES DNA (PCR) 7:00am Ehrlichia March Negative Negative [facility] ewingii/can 2019 LABORAT ORIES is (PCR) 7:00am Ehrlichia March Negative Negative [facility] muris-like 2019 -----ADDITIONA LAB ORATORIES DNA (PCR) 7:00am L INFORMATION--- --This test was developed and its performance characteristic sdetermined by [facility] in a manner consistent with CLIArequiremen ts. This test has not been cleared or approved bythe U.S. Food and Drug Administration . Borrelia March Negative Negative [facility] miyamotoi 2019 -----ADDITIONA LABO RATORIES (PCR) 7:00am L INFORMATION--- --This test was developed and its performance characteristic sdetermined by [facility] in a manner consistent with CLIArequiremen ts. This test has not been cleared or approved bythe U.S. Food and Drug Administration .Test Performed by:[facility] - [address] [address]Bab Director: Ford Hector M.D. Ph.D.; CLIA# [id number] Urine March Negative Cutoff:200 [facility], [address] [facility] 2019 ng/[place] [address] Screen 7:27pm Venous October 7.43 pH 7.31-7.41 MAIN LAB, [address] [place] [address] Blood pH 2019 [place] [address] 5:45pm Venous November 7.41 pH 7.31-7.41 MAIN LAB, [address] [place] [address] Blood pH 2019 [place] [address] 10:00am Venous March 39 mmHg 41-51 MAIN LAB, [address] [place] [address] [place] [address] at Patient 5:45pm Temp Venous April 28 mmHg 41-51 MAIN LAB, [address] [place] [address] [place] [address] at Patient 10:00am Temp Venous March 25.8 mmol/L 23-30 MAIN LAB , [address] [place] [address] [place] [address] 5:45pm Venous April 17.5 mmol/L 23-30 MAIN LAB , [address] [place] [address] [place] [address] 10:00am Venous March 1.0 mmol/L -2.0-2.0 MAIN LAB, [address] [place] [address] [place] [address] Excess 5:45pm Venous April -7.0 mmol/L -2.0-2.0 MAIN LAB , [address] [place] [address] [place] [address] Excess 10:00am Microbiology Results Procedure Source Result Collection Result Result Performin g Date/Time Date/Time Comment Site Blood Culture Blood, Left NO GROWTH April 15April MAIN LAB, [address] [place] [address] Antecubital AFTER 2019 9:50pm [address] [place] [address] DAYS 7:26am Urine Culture Ur,Clean Catch April 13March MAIN LAB, [address] [place] [address] 2019 8:27pm [facility] [place] [address] 8:39am Gram Stain Csf April 13March MAIN LAB, [address] [place] [address] 2019 9:45pm 2019 [place] [address] 5:13am CSF Culture Csf NO GROWTH April 13March MAIN LAB, [address] [place] [address] AFTER 72 2019 9:45pm 2019 [place] [address] HOURS 8:47am Diagnostic Imaging Reports Report Dictated Date/Time Dictated By Status Electrocardiogram April 13, 2020 6:51pm Jet Buck MD completed [facility] EKG PATIENT NAME: ROCIO AUGUSTE 003 [...] 04/13/2020 7:08:34 PM Referred By: Arnel Buck [facility] med By:John Buck 04/13/20 1908 Electrocardiogram April 14, 2020 2:23am Mau Nguyen MD completed [facility] EKG PATIENT NAME: ROCIO AUGUSTE [id number] DATE OF : 1950 ATTENDING PHYSICIAN: PRIMARY CARE PHYS: [facility] DICTATING PHYSICIAN: Mau Nguyen MD REPORT STATUS: [...] April 14, 2020 8:19am Sherie Martinez completed [facility] CAT SCAN REPORT PATIENT NAME: ROCIO [...] by Yuko sparrow MD in OV> 04/14/20 0821 Radiology Report April 14, 2020 8:27am Sherie Martinez completed [facility] RADIOLOGY REPORT PATIENT NAME: ROCIO AUGUSTE [...] 14, 2020 3:57pm Mary Vu MD completed [facility] RADIOLOGY REPORT PATIENT NAME: ROCIO AUGUSTE [...] 16, 2020 3:21pm Mary Vu MD completed [facility] CAT SCAN REPORT PATIENT NAME: ROCIO [...] 16, 2020 4:09pm Mary Vu MD completed [facility] ULTRASOUND REPORT PATIENT NAME: ROCIO AUGUSTE [...] sumner MD, PhD in OV> 04/16/20 1617 Radiology Report April 29, 2020 9:56am Yuko Rosas MD completed [facility] RADIOLOGY REPORT PATIENT NAME: ROCIO AUGUSTE 11 [id number] DATE OF : 1950 ATTENDING/ER PHYSICIAN: ER/ATTENDING PHYSICIAN: Sherie Valdivia PRIMARY CARE PHYS: Juan Jose Livingston MD ADMITTING PHYSICIAN: CONSULTING PHYSICIAN: PROCEDURE DATE: 04/29/20 REPORT STATUS: Signed DICTATING PHYSICIAN: Yuko Rosas MD REASON FOR EXAM: FEVER STUDY: Chest 1 vw CLINICAL HISTORY: Fever COMPARISON: 04/14/2020 FINDINGS/IMPRESSION: The cardiomediastinal silhouette is wit hin normal limits. Asymmetric elevation of the right hemid iaphragm again noted. There is no focal consolidation, pulmon pilar edema, pleural effusion or pneumothorax. dd: 04/29/20 0956 <Electronically signed by Yuko sparrow MD in OV> 04/29/20 0957 Electrocardiogram April 29, 2020 10:14am Fabian Merritt MD completed [facility] EKG PATIENT NAME: ROCIO AUGUSTE [id number] DATE OF : 1950 ATTENDING PHYSICIAN: PRIMARY CARE PHYS: Juan Jose Livingston MD DICTATING PHYSICIAN: Fabian Merritt MD REPORT STATUS: Signed Test Reason : Blood Pressure : / mmHG Vent. Rate : 142 BPM Atrial Rate : 142 BPM P-R Int : 160 ms QRS Dur : 098 ms QT Int : 244 ms P-R-T Axes : 037 002 15 8 degrees QTc Int : 375 ms Sinus tachycardia with occasional radames ture ventricular complexes Inferior infarct (cited on or before ) Anterior infarct (cited on or before ) ST & T wave abnormality, consider later al ischemia Abnormal ECG When compared with ECG of 14-APR-2020 0 2:23, premature ventricular complexes are now present Serial changes of Anterior infarct pres ent Confirmed by Fabian Merritt ([id number]) on 05/2020 10:24:39 AM Referred By: Fabian Merritt Confirmed By:Sherie Merritt 04/29/20 1024 Health Concerns Concerns Health Concerns: Decreased Mobility Advance Directives Advance Directive Response Recorded Date/Time Does patient have an Advanced Directive? No April 13, 2020 8:44pm Do we have a copy on file here at [facility]? No O ctober 2019 8:44pm Pt has a Living Will? No April 13, 2020 8:44pm Do we have a copy on file here at [facility]? No O ctober 2019 8:44pm Pt has a Power of Patrol Commander? No March 8:44pm Do we have a copy on file here at [facility]? 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 Fever Reason for Visit Fever, unknown origin Sepsis Encounters Encounter Location(s) Arrival/Admit Date Discharge/Depart Provi nik(s) Date Registered [facility] April 14, 2020 Isai Figueroa , Outpatient Medical 2:32am Center[facility]ospital[facility] Discharged April 14, 2020 April 19, 2020 Maximilian Griffin Inpatient Medical 4:55am 12:11pm MD [facility] Registered [facility] April 21, 2020 Anisa Link Outpatient Medical 1:40pm MADISYN Browne [facility] Departed [facility] April 23, 2020 April 23, 2020 Maximilian Griffin Clinical Medical 9:44am 9:45am MD Center-Laboratory Departed April 27April 27, 2020 Juan Jose [place] Physician/Provi Medical 2019 2:12pm 3:18pm MD Yara nik Office [facility] Visit rn [facility] Admitted [facility] April 29, Ashly [place] Inpatient Medical 2019 5:27pm MD Caterina [facility] Recent Diagnosis Onset Date Fever, unknown origin Sepsis Assessments Diagnosis Onset Date Resolution Status Fever, unknown origin acute Sepsis acute Family History Relationship Condition [...] Immunizations Immunization Event Date Not Given Dose Pan Operator Lot Vac cine Reason Number Number Informatio n Statement (VIS) Deta il Influenza High April [id number] Dose 2019 Mental Status Observation Response Date Recorded Comprehension Ability Understands Concepts April 15 0 7:00pm Speech Appropriate April 14, 2020 2 :44am Clear April 14, 2020 2 :44am Comprehension Ability Understands Concepts April 29 11:35am Medical Equipment No Medical Equipment Information available Insurance Providers Guarantor ROCIO AUGUSTE Address [address] [place] [address] Contact Info. Home Phone: Payer Policy Id Coverage Id Subscriber's Subscriber Id Effective E xpiration Name Date Date MEDICARE [id number] ROCIO AUGUSTE [id number] PART A AND B 42 COVERAGE SELF PAY Self N/A Plan of Treatment Pt is recently d/c'd from [facility] following admission for altered mentation, lab abnormalities [...] Provider Contact Provider Address Referral Date Information [facility] Work Phone: [phone] [facility] [place] [address] Juan Jose Livingston Work Phone: [facility] MD [phone] [place] [address] Future Procedures Future procedure information is unavailable Future Medications Future medication information is unavailable Patient Instructions Fever of Unknown Origin (DC) COVID 19 General Instructions- decrease the spread of coronavirus ([facility]) Social History Smoking Status Status Date of Observation Never smoked tobacco (finding) April 29, 2020 12: 15pm Observation Status Observation Response Date of Response Alcohol Use No April 29, 2020 12:15pm alcohol intake frequency holidays/special occasions April 29, 2020 12:15pm only Substance/Street Drug Use No April 29, 2020 12:15pm substance use type does not use April 29, 2020 12:15pm Smoking Status Never smoker April 29, 2020 12:15pm Assigned Sex Male Vital Signs Vital Reading Result Reference Range Collection Date/ Time Height 71 [in_i] April 14 2:41pm Weight 109.60 kg April 14 2:41pm Body Temperature 97.0 [degF] 97.6-99.6 April 19 020 9:37am Heart Rate 100 /min 60-100 April 19 9:37am Respiratory rate 19 /min 12-April 19 020 9:37am Oxygen saturation by Pulse 97 % 95-100 Novem 2019 9:37am oximetry BP Systolic 148 mm[Hg] 100-140 April 19 9:37am BP Diastolic 84 mm[Hg] 50-85 April 19 9:37am BMI (Body Mass Index) 33.7 kg/m2 April 142019 2:41pm Height 69.5 [in_i] April 27, 020 2:23pm Weight 105.68 kg April 27, 020 2:23pm Body Temperature 98.5 [degF] 97.6-99.6 April 27, 2020 2:23pm Heart Rate 84 /min 60-100 April 27, 2 020 2:23pm Respiratory rate 20 /min -April 27, 2020 2:23pm Oxygen saturation by Pulse 96 % 95-100 2019 2:23pm oximetry BP Systolic 116 mm[Hg] 100-140 April 27, 020 2:23pm BP Diastolic 78 mm[Hg] 50-85 April 27, 2 020 2:23pm BMI (Body Mass Index) 33.9 kg/m2 April 182019 2:23pm Height 71 [in_i] April 29, 2 020 9:26am Weight 104.32 kg April 29, 020 9:26am Body Temperature 98.7 [degF] 97.6-99.6 April 29, 2020 4:36pm Heart Rate 105 /min 60-100 April 29, 020 4:36pm Respiratory rate 18 /min -April 29, 2020 4:36pm Oxygen saturation by Pulse 97 % 95-100 2019 4:36pm oximetry BP Systolic 112 mm[Hg] 100-140 April 29, 2 020 4:36pm BP Diastolic 76 mm[Hg] 50-85 April 29, 2 020 4:36pm
--- OUTSIDE RECORDS SUMMARY | 2022-01-19 09:31 | XMS_ITS | Continuity of Care Document ---
:1950 Author Organization [facility] Address [address] [place] [address] Phone Care Team Providers Name Role Phone Out of Town, Provider Primary Care Provider Unavailable Isai Mcduffie Admit Provider Helene Griffin Attending Provider Allergies, Adverse Reactions, Alerts No known allergies. Medications No known medications. Problems Active Problems Medical Problem Onset Date Status Acute encephalopathy Active Fever of unknown origin Active Rhabdomyolysis Active Elevated liver enzymes Active Sepsis Active Altered mental status Active Lactic acidosis Active Procedures Procedure Date Performed Status CT [...] eted Blood Culture April 15, 2020 completed Blood Culture April 15, 2020 active Gram Stain April 13, 2020 completed CSF Culture April 13, 2020 completed Urine Culture April 13, 2020 completed Relevant Diagnostic Tests and/or Laboratory Data Laboratory Results Test Date/Time Result Interpretation Reference Result Comment Performing Range Site White Blood April 6. 4.8-10.8 MAIN LAB , [address] [facility] Count 2019 1000/mm3 [place] [address] 6:21am Red Blood April 4.61 M/mm3 4.70-6.00 MAIN LAB, [address] [place] [address] Count 2019 [place] [address] 6:21am Hemoglobin April 13.6 g/dL 14.0-18.0 MAIN LAB, [address] [place] [address] 2019 [place] [address] 6:21am Hematocrit April 40.5 % 42-52 MAIN LAB, [address] [place] [address] 2019 [place] [address] 6:21am Mean April 87.9 fL 80.0-94.0 MAIN LAB, [address] [place] [address] Corpuscular 2019 [place] [address] Volume 6:21am Mean April 29.5 pg 27-31 MAIN LAB, [address] [place] [address] Corpuscular 2019 [place] [address] Hemoglobin 6:21am Mean April 33.6 g/dL 33-37 MAIN LAB, [address] [place] [address] Corpuscular 2019 . [place] [address] Hemoglobin 6:21am Concent Red Cell April 13.8 % 11.5-14.5 MAIN LAB, [address] [place] [address] Distributio 2019 [facility] [place] [address] n Width 6:21am Platelet April 87 1000/mm3 140-440 MAIN LAB , [address] [place] [address] Count 2019 [place] [address] 6:21am Mean April 12.6 fL 7.4-10.4 MAIN LAB, [address] [place] [address] Platelet 2019 [place] [address] Volume 6:21am Neutrophils October 81.2 % 40.0-72.0 MAIN LAB , [address] [place] [address] (%) (Auto) 2019 . [place] [address] 6:01am Lymphocytes October 11.0 % 17-45 MAIN LAB , [address] [place] [address] (%) (Auto) 2019 [place] [address] 6:01am Monocytes October 6.9 % 3-11 MAIN LAB, [address] [place] [address] (%) (Auto) 2019 [place] [address] 6:01am Eosinophils October 0.0 % 0-3 MAIN LAB , [address] [place] [address] (%) (Auto) 2019 [place] [address] 6:01am Basophils October 0.3 % 0-1 MAIN LAB, [address] [place] [address] (%) (Auto) [address] [place] [address] 6:01am Immature October 0.6 % 0-1 MAIN LAB, [address] [place] [address] [place] [address] % (Auto) 6:01am Neutrophils October 2.72 1.4-6.5 MAIN LAB , [address] [place] [address] # (Auto) 2019 1000/[place]3 [place] [address] 6:01am Lymphocytes October 0.37 1.2-3.4 MAIN LAB , [address] [place] [address] # (Auto) 2019 1000/[place]3 [place] [address] 6:01am Monocytes # October 0.23 0.0-0.8 MAIN LAB , [address] [place] [address] (Auto) 2019 1000/[place]3 [place] [address] 6:01am Eosinophils October 0.00 0.0-0.7 MAIN LAB , [address] [place] [address] # (Auto) 2019 1000/[place]3 [place] [address] 6:01am Basophils # October 0.01 0.0-0.1 MAIN LAB , [address] [place] [address] (Auto) 2019 1000/[place]3 [place] [address] 6:01am Absolute October 0.0 0-1 MAIN LAB, [address] [place] [address] [place] [address] Granulocyte 6:01am (auto Differentia October Automated MAIN LAB , [address] [place] [address] [place] [address] 6:01am Platelet October Clumped, MAIN LAB, [address] [place] [address] [place] [address] 5:12am Platelet October 2+ MAIN LAB, [address] [place] [address] Clumps, 2019 [place] [address] EDTA 5:12am Differentia October See comments Mild MAIN LAB, [address] [place] [address] [place] [address] Pathologist 6:01am and new onset 's Review thrombocytopen ia. Laboratory data reviewed. Suggest consideration with hepatitis viral serologies and further image analysis(CT of abdomen) if clinically indicated.Kristie r reviewed by pathologist for quality assurance supervisor final.Jabari Feliz MD04/16/20 Erythrocyte March 2 mm/hr 0-30 MAIN LAB , [address] [facility] Sedimentati [address] [place] [address] on Rate 8:45pm Urine RBC March 0-2 /hpf MAIN LAB, [address] [facility] [address] [place] [address] 7:27pm Urine WBC March None seen MAIN LAB, [address] [facility] 2019 /[place] [address] 7:27pm Urine March None seen NONE SEEN MAIN LAB, [address] [facility] Bacteria 2019 /[place] [address] 7:27pm Urine Mucus March Present MAIN LAB , [address] [facility] [address] [place] [address] 7:27pm Ur March Negative Negative Presumptive [facility] ICAL Streptococc 2019 negative for LABO RATORIES us 10:00pm pneumococcal pneumoniae pneumonia, Antigen suggestingno current or recent infection. Infection due to S.pneumoniae cannot be ruled out since the antigen present inthe sample may be below detection limit of the test.--------- PILO TIONAL INFORMATION--- --This assay was performed using the FDA-cleared BinaxNOWStrept ococcus pneumoniae Antigen test, a rapidimmunochr omatographic assay.Test Performed by:[address] [address]Bxc Director: Ford Hector M.D. Ph.D.; CLIA# [id number] Urine March Negative Negative Presumptive [facility] ICAL Legionella 2019 negative for LABOR [...] rapidimmunochr omatographic assay.Test Performed by:[facility] [place], [place] [address]Eeh Director: Ford Hector M.D. Ph.D.; CLIA# [id number] Sodium April 138 mmol/L 137-145 MAIN LAB, [address] [place] [address] Level 2019 [facility] [address] 6:21am Potassium April 3.7 mmol/L 3.6-5.0 MAIN LAB, [address] [place] [address] Level 2019 [facility] [address] 6:21am Chloride April 107 mmol/L 98-107 MAIN LAB, [address] [place] [address] Level 2019 [facility] [address] 6:21am Carbon April 26 mmol/L 22-30 MAIN LAB, [address] [place] [address] Dioxide 2019 [facility] [address] Level 6:21am Anion Gap April 5 7-16 MAIN LAB, [address] [place] [address] 2019 [facility] [address] 6:21am Blood Urea April 10 mg/dL 8-26 MAIN LAB, [address] [place] [address] Nitrogen 2019 [facility] [address] 6:21am Creatinine April 0.56 mg/dL 0.66-1.25 MAIN LAB , [address] [place] [address] 2019 [facility] [address] 6:21am Glomerular April > 60 mL/min >60.0 MAIN LA B, [address] [place] [address] Filtration 2019 [facility] [address] Rate Calc 6:21am Glucose April 87 mg/dL 70-100 MAIN LAB, [address] [place] [address] Level 2019 [facility] [address] 6:21am Calcium April 7.9 mg/dL 8.4-10.2 MAIN LAB, [address] [place] [address] Level 2019 [facility] [address] 6:21am Calcium April 9.0 mg/dL 8.4-10.2 MAIN LAB, [address] [place] [address] Adjusted 2019 [facility] [address] for Albumin 6:21am Phosphorus March 2.8 mg/dL 2.5-4.5 MAIN LAB, [address] [place] [address] Level 2019 [facility] [address] 11:00pm Magnesium March 1.9 mg/dL 1.6-2.3 MAIN LAB, [address] [place] [address] Level 2019 [facility] [address] 11:00pm Total April 1.0 mg/dL 0.2-1.3 MAIN LAB, [address] [place] [address] Bilirubin 2019 [facility] [address] 6:21am Direct March 0.0 mg/dL 0-0.3 MAIN LAB, [address] [place] [address] Bilirubin 2019 [facility] [address] 8:45pm Aspartate April 212 U/L 17-59 MAIN LAB, [address] [place] [address] Amino 2019 [facility] [address] Transf 6:21am (AST/SGOT) Alanine April 143 U/L <50 As of 10/17/19, MAIN L AB, [address] [place] [address] Aminotransf 2019 the Reference [facility] [address] erase 6:21am Range for (ALT/SGPT) ALT/SGPT for adult patients has been updated. The Reference Range for ALT/SGPT has not been established for patients <18 years of age. Lactic Acid March 3.6 mmol/L 0.7-2.1 MAIN LA B, [address] [place] [address] 2019 [facility] 115[address] 6:01am Lactate April 1103 U/L 313-618 Note: LDH MAIN LAB, [address] [place] [address] Dehydrogena 2019 activity can [facility] [address] se 6:21am be decreased upon refrigerated or frozen storage. Creatine April 667 U/L 55-170 MAIN LAB, [address] [place] [address] Kinase 2019 [facility] [address] 6:21am Total April 5.8 g/dL 6.3-8.2 MAIN LAB, [address] [place] [address] Protein 2019 [facility] [address] 6:21am Albumin April 2.9 g/dL 3.5-5.0 MAIN LAB, [address] [place] [address] 2019 [facility] [address] 6:21am Cholesterol March 232 mg/dL 59-199 MAIN LAB , [address] [place] [address] 2019 [facility] [address] 11:00pm HDL March 29 mg/dL 40-60 The National MAIN LA B, [address] [place] [address] [place] [address] 11:00pm Education Program (NCEP) has set the following guidelines (reference values) for cholesterol, HDL:Low HDL: <40 mg/dLNormal: 40-60 mg/dLDesirable : >60 mg/dL LDL March 182.6 mg/dL 0-129 MAIN LAB , [address] [facility] Cholesterol [address] [place] [address] 11:00pm VLDL March 20.4 mg/dL 0-32 MAIN LAB, [address] [facility] Cholesterol [address] [place] [address] 11:00pm Cholesterol March 8.00 0-3.9 MAIN LAB , [address] [place] [address] /HDL Ratio 2019 [facility] [address] 11:00pm Triglycerid March 102 mg/dL 0-149 MAIN LAB , [address] [place] [address] [place] [address] 11:00pm Alkaline April 155 U/L 38-126 MAIN LAB, [address] [place] [address] [place] [address] 6:21am Thyroid March 1.73 mlU/L 0.47-4.68 The results of MAIN LAB, [address] [place] [address] Stimulating 2019 this assay [place] . [place] [address] Hormone 11:00pm be falsely (TSH) decreased in patients who consume Biotin. Hemoglobin March 5.08 % <5.7 <5.7%: MAIN LAB, [address] [place] [address] A1c Percent 2019 Normal5.7%-6.4 [place] [address] 5:45pm %: Prediabetes>=6 .5%: Diagnostic for diabetesGoals [...] Estimated March 99 mg/dL MAIN LAB, [address] [facility] Average 2019 [place] [address] Glucose 5:45pm mg/dL C-Reactive March 245.8 mg/L 5-10 MAIN LAB , [address] [place] [address] [place] [address] 8:45pm Influenza March Negative Negative MAIN LAB, [address] [facility] Type A 2019 [place] [address] (RT-PCR) 6:30pm Influenza March Negative Negative MAIN LAB, [address] [facility] Type B [address] [place] [address] (RT-PCR) 6:30pm Respiratory March Negative Negative MAIN LAB , [address] [facility] Syncytial 2019 [place] [address] Virus 6:30pm (RT-PCR Herpes March Negative [facility] Simplex 2019 LABORATOR IES Virus I DNA 8:45pm (PCR) Herpes March Negative [facility] Simplex 2019 LABORATOR IES Virus II 8:45pm DNA (PCR) Varicella-Z March Not [facility] tony 2019 Reportable LABORATO JULIO Specimen 8:45pm Descript Varicella-Z March Negative [facility] tony Virus 2019 LABORAT ORIES DNA (PCR) 8:45pm Coronavirus March Negative Negative This test has [facility] 2019 PCR 2019 not been [...] invitro diagnostic tests for detection and/or diagnosis [id number] under section 564(b)(1) of Act, 21 U.S.C ?360bbb-3(b) (1), unless the authorization is terminated orrevoked sooner.Negativ e results do not preclude 2019-nCoV infection andshould not be used as the sole basis for treatment or otherpatient management decisions. Negative results must becombined with clinical observations, patient history, andepidemiolog ical information.Pe rformed on the Fiixher Fusion instrument Reference March [place] Please [facility] Lab Test 2019 [facility] indicate the LABORA TORIES Performing 6:13pm Triage Site [id number] performed or referred by[address] [address] CSF March Clear MAIN LAB, [address] [place] [address] [place] [address] 8:45pm CSF Color March Colorless MAIN LAB, [address] [place] [address] [place] [address] 8:45pm CSF Volume March 14 mL MAIN LAB, [address] [place] [address] [place] [address] 8:45pm Body Fluid March 4 MAIN LAB, [address] [place] [address] [place] [address] Tubes 8:45pm CSF WBC March 3 0-5 Cell Count MAIN LAB, [address] [place] [address] 2019 performed [place] . [facility] [place] [address] 8:45pm tube number 4 Cell Count performed on tube number 4 CSF RBC March 2 0-9 Cell Count MAIN LAB, [address] [place] [address] 2019 performed [place] . [facility] [place] [address] 8:45pm tube number 4 Cell Count performed on tube number 4 CSF Glucose March 60 mg/dL 40-70 MAIN LAB , [address] [place] [address] [place] [address] 8:45pm CSF Total March 70 mg/dL 12-60 MAIN LAB, [address] [place] [address] [place] [address] 8:45pm Urine March Negative Cutoff:200 MAIN LAB, [address] [place] [address] Methadone 2019 ng/[place] [address] Screen 7:27pm Venous March 7.43 pH 7.31-7.41 MAIN LAB, [address] [place] [address] [place] [address] 5:45pm Venous March 39 mmHg 41-51 MAIN LAB, [address] [place] [address] [place] [address] at Patient 5:45pm Temp Venous March 25.8 mmol/L 23-30 MAIN LAB , [address] [place] [address] [place] [address] 5:45pm Venous October 1.0 mmol/L -2.0-2.0 MAIN LAB, [address] [place] [address] [place] [address] Excess 5:45pm Microbiology Results Procedure Source Result Collection Result Result Performin g Date/Time Date/Time Comment Site Blood Culture Blood, Left NO GROWTH April 15April MAIN LAB, [address] [place] [address] Antecubital AFTER 2019 9:50pm 2019 [place] [address] DAYS 7:31am Urine Culture Ur,Clean Catch April 13March [facility], [address] [place] [address] 2019 8:27pm 2019 [place] [address] 8:39am Gram Stain Csf April 13March [facility] LAB, [address] [place] [address] 2019 9:45pm 2019 [place] [address] 5:13am CSF Culture Csf NO GROWTH April 13March [facility] LAB, [address] [place] [address] AFTER 72 2019 9:45pm 2019 [place] [address] HOURS 8:47am Diagnostic Imaging Reports Report Dictated [...] 04/13/2020 7:08:34 PM Referred By: Arnel Buck [facility] med By:John Buck 04/13/20 1908 Electrocardiogram April 14, 2020 2:23am Mau Nguyen MD completed [facility] EKG PATIENT NAME: ROCIO AUGUSTE [id number] DATE OF : 1950 ATTENDING PHYSICIAN: PRIMARY CARE PHYS: [facility] DICTATING PHYSICIAN: Mau Nguyen MD REPORT [...] with preliminary r eport by [facility]RAD. dd: 04/14/20 0819 <Electronically signed by Yuko sparrow MD in [...] REASON FOR EXAM: FUO, elevated liver enzymes STUDY: CT Chest Abd Pel w/ Contrast. [...] visualized. N o secondary findings for acute appendicitis. There is no bowel obstruction, pneumope ritoneum [...] have a copy on file here at [facility]? No O ctober 2019 8:44pm Pt has a Living Will? No April 13, 2020 8:44pm Do we have a copy on file here at [facility]? No O ctober 2019 8:44pm Pt has a Power of Light Adjuster? No March 8:44pm Do we have a copy on file here at [facility]? No O ctober 2019 8:44pm Chief Complaint and Reason for Visit Chief Complaint AMS Fever Reason for Visit Acute encephalopathy Altered mental status Elevated liver enzymes Fever of unknown origin Rhabdomyolysis Encounters Encounter Location(s) Arrival/Admit Date Discharge/Depart Provi nik(s) Date Registered [facility] April 14, 2020 Isai wayne , Outpatient Medical 2:32am Center-Hospital[facility] ts Discharged [facility] April 14, 2020 April 19, 2020 Maximilian Griffin Inpatient Medical 4:55am 12:11pm MD [facility] Recent Diagnosis Onset Date Acute encephalopathy Altered mental status Elevated liver enzymes Fever of unknown origin Rhabdomyolysis Assessments Diagnosis Onset Date Resolution Status Acute encephalopathy acute Altered mental status acute Elevated liver enzymes acute Fever of unknown origin acute Rhabdomyolysis acute Family History Relationship Condition Age at [...] Moderate Assistance April 14, 2020 2 :44am Goals Acute Goals Goals: Return to improved or baseline le josi of mobility Mental Status Observation Response Date Recorded Comprehension Ability Understands Concepts April 15 0 7:00pm Speech Appropriate April 14, 2020 2 :44am Clear April 14, 2020 2 :44am Medical Equipment No Medical Equipment Information available Insurance Providers Guarantor ROCIO AUGUSTE Address [address] [place] [id number] Contact Info. Home Phone: Payer Policy Id Coverage Id Subscriber's Subscriber Id Effective E xpiration Name Date Date MEDICARE [id number] LUCAS N [id number] PART A AND B 42 AUGUSTE COVERAGE SELF PAY Self N/A Plan of Treatment Future Tests Future scheduled test information is unavailable Pending Tests Pending diagnostic test information is unavailable Future Visits Future appointment information is unavailable Referrals to Other Providers Reason for Referral Start Provider Provider Contact Provider Address Referral Date Information [place] [facility] Phone: [phone] [facility] [employer] [facility] Center [facility] 0 [address] Future Procedures Future procedure information is unavailable Future Medications Future medication information is unavailable Patient Instructions Fever of Unknown Origin (DC) COVID 19 General Instructions- decrease the spread of coronavirus ([facility]) Social History Smoking Status Status Date of Observation Never smoked tobacco (finding) April 14, 2020 5:59 am Observation Status Observation Response Date of Response Alcohol Use No April 14, 2020 4 :59am Substance/Street Drug Use No April 14, 2020 4:59am Smoking Status Never smoker April 14, 2020 4 :59am Assigned Sex Male Vital Signs Vital Reading Result Reference Range Collection Date/ Time Height 71 [in_i] April 14 2:41pm Weight 109.60 kg April 14 2:41pm Body Temperature 97.0 [degF] 97.6-99.6 April 19, 2 020 9:37am Heart Rate 100 /min 60-100 April 19 9:37am Respiratory rate 19 /min 12-24 April 19, 020 9:37am Oxygen saturation by Pulse 97 % 95-100 2019 9:37am oximetry BP Systolic 148 mm[Hg] 100-140 April 19 9:37am BP Diastolic 84 mm[Hg] 50-85 April 19, 9:37am BMI (Body Mass Index) 33.7 kg/m2 April 142019 2:41pm
--- OUTSIDE RECORDS SUMMARY | 2022-01-19 09:31 | XMS_ITS | Continuity of Care Document ---
:1950 Author Organization [facility] Address [address] [place] [address] Phone Care Team Providers Name Role Phone Isai Mcduffie Admit Provider Helene Griffin Attending Provider Juan Jose Livingston Primary Care Provider Allergies, Adverse Reactions, Alerts No known allergies. Medications Medication Status Dose Units Route Directions Qty Days Start End Ins tructions Date Date Fluzone Discontin 0.7 ML IM ONCE 0.7 April HighDose ued 10th, er Quad 2019, PF (flu vacc 2:12pm 2019 [id number](65 3:17pm yr up)-PF) 240 mcg/0.7 mL Doxycycline [...] Blood November 8.24 4.8-10.8 MAIN LAB , [address] [place] [address] 2019 1000/mm3 [facility] [address] 9:54am White Blood November 6.15 4.8-10.8 MAIN LAB , [address] [place] [address] 2019 1000/mm3 [place] [address] 6:21am Red Blood April 5.30 M/mm3 4.70-6.00 MAIN LAB, [address] [place] [address] 2019 [place] [address] 9:54am Red Blood April 4.61 M/mm3 4.70-6.00 MAIN LAB, [address] [place] [address] 2019 [place] [address] 6:21am Hemoglobin April 15.7 g/dL 14.0-18.0 MAIN LAB, [address] [place] [address] 2019 [place] [address] 9:54am Hemoglobin April 13.6 g/dL 14.0-18.0 MAIN LAB, [address] [place] [address] 2019 [place] [address] 6:21am Hematocrit April 47.0 % 42-52 MAIN LAB, [address] [place] [address] 2019 [place] [address] 9:54am Hematocrit November 40.5 % 42-52 MAIN LAB, [address] [place] [address] 2019 [place] [address] 6:21am Mean April 88.7 fL 80.0-94.0 MAIN LAB, [address] [facility] Corpuscular 2019 [place] [address] Volume 9:54am Mean April 87.9 fL 80.0-94.0 MAIN LAB, [address] [place] [address] Corpuscular 2019 [place] [address] Volume 6:21am Mean April 29.6 pg 27-31 MAIN LAB, [address] [facility] Corpuscular 2019 [place] [address] Hemoglobin 9:54am Mean April 29.5 pg 27-31 MAIN LAB, [address] [facility] Corpuscular 2019 [place] [address] Hemoglobin 6:21am Mean April 33.4 g/dL 33-37 MAIN LAB, [address] [place] [address] Corpuscular 2019 [place] [address] Hemoglobin 9:54am Concent Mean April 33.6 g/dL 33-37 MAIN LAB, [address] [place] [address] Corpuscular 2019 [place] [address] Hemoglobin 6:21am Concent Red Cell November 14.3 % 11.5-14.5 MAIN LAB, [address] [place] [address] Distributio 2019 [place] [address] n Width 9:54am Red Cell April 13.8 % 11.5-14.5 MAIN LAB, [address] [place] [address] Distributio 2019 [place] [address] n Width 6:21am Platelet April 316 1000/mm3 140-440 MAIN LA B, [address] [facility] Count 2019 [place] [address] 9:54am Platelet April 87 1000/mm3 140-440 MAIN LAB , [address] [place] [address] Count 2019 [place] [address] 6:21am Mean April 10.9 fL 7.4-10.4 MAIN LAB, [address] [place] [address] Platelet 2019 [place] [address] Volume 9:54am Mean November 12.6 fL 7.4-10.4 MAIN LAB, [address] [place] [address] Platelet 2019 [place] [address] Volume 6:21am Neutrophils October 81.2 % 40.0-72.0 MAIN LAB , [address] [place] [address] (%) (Auto) 2019 [place] [address] 6:01am Lymphocytes October 11.0 % 17-45 MAIN LAB , [address] [place] [address] (%) (Auto) 2019 [place] [address] 6:01am Monocytes October 6.9 % 3-11 MAIN LAB, [address] [place] [address] (%) (Auto) 2019 [place] [address] 6:01am Eosinophils October 0.0 % 0-3 MAIN LAB , [address] [place] [address] (%) (Auto) 2019 [place] [address] 6:01am Basophils October 0.3 % 0-1 MAIN LAB, [address] [place] [address] (%) (Auto) 2019 [place] [address] 6:01am Immature October 0.6 % 0-1 MAIN LAB, [address] [place] [address] [place] [address] % (Auto) 6:01am Neutrophils October 2.72 1.4-6.5 MAIN LAB , [address] [place] [address] # (Auto) 2019 1000/[place]3 [place] [address] 6:01am Lymphocytes October 0.37 1.2-3.4 MAIN LAB , [address] [place] [address] # (Auto) 2019 1000/[place]3 [place] [address] 6:01am Monocytes # October 0.23 0.0-0.8 MAIN LAB , [address] [place] [address] (Auto) 2019 1000/[place]3 [place] [address] 6:01am Eosinophils October 0.00 0.0-0.7 MAIN LAB , [address] [place] [address] # (Auto) 2019 1000/[place]3 [place] [address] 6:01am Basophils # October 0.01 0.0-0.1 MAIN LAB , [address] [place] [address] (Auto) 2019 1000/[place]3 [place] [address] 6:01am Absolute October 0.0 0-1 MAIN LAB, [address] [place] [address] [place] [address] Granulocyte 6:01am (auto Differentia October Automated MAIN LAB , [address] [place] [address] [place] [address] 6:01am Platelet March Clumped, MAIN LAB, [address] [place] [address] [place] [address] 5:12am Platelet March 2+ MAIN LAB, [address] [place] [address] Clumps, 2019 [place] [address] EDTA 5:12am Differentia March See comments Mild MAIN LAB, [address] [place] [address] [place] [address] Pathologist 6:01am and new onset 's Review thrombocytopen ia. Laboratory data reviewed. Suggest consideration with hepatitis viral serologies and further image analysis(CT of abdomen) if clinically indicated.Smea r reviewed by pathologist for quality assurance supervisor.Jabari Feliz MD04/16/20 Erythrocyte March 2 mm/hr 0- MAIN LAB , [address] [place] [address] [place] [address] on Rate 8:45pm Urine RBC March 0-2 /hpf MAIN LAB, [address] [place] [address] [place] [address] 7:27pm Urine WBC March None seen MAIN LAB, [address] [place] [address] 2019 /[place] [address] 7:27pm Urine October None seen NONE SEEN MAIN LAB, [address] [place] [address] Bacteria 2019 /[place] [address] 7:27pm Urine Mucus March Present MAIN LAB , [address] [place] [address] [place] [address] 7:27pm Ur March Negative Negative Presumptive [facility] [...] Antigen test, a rapidimmunochr omatographic assay.Test Performed by:[address] [address]Pom Director: Ford Hector M.D. Ph.D.; CLIA# [id number] Urine March Negative Negative Presumptive [facility] [...] Antigen Test, a rapidimmunochr omatographic assay.Test Performed by:[facility] [place] [id number] Director: Ford Hector M.D. Ph.D.; CLIA# [id number] Sodium April 137 mmol/L 137-145 MAIN LAB, 133 [facility] 2019 [facility] [address] 9:54am Sodium April 138 mmol/L 137-145 MAIN LAB, [address] [place] [address] 2019 [facility] [address] 6:21am Potassium April 4.9 mmol/L 3.6-5.0 MAIN LAB, [address] [place] [address] 2019 [facility] [address] 9:54am Potassium April 3.7 mmol/L 3.6-5.0 MAIN LAB, [address] [place] [address] 2019 [facility] [address] 6:21am Chloride November 105 mmol/L 98-107 MAIN LAB, [address] [place] [address] 2019 [facility] [address] 9:54am Chloride November 107 mmol/L 98-107 MAIN LAB, [address] [place] [address] 2019 [facility] [address] 6:21am Carbon November 23 mmol/L 22-30 MAIN LAB, [address] [place] [address] Dioxide 2019 [facility] [address] Level 9:54am Carbon November 26 mmol/L 22-30 MAIN LAB, [address] [place] [address] Dioxide 2019 [facility] [address] Level 6:21am Anion Gap April 9 7-16 MAIN LAB, [address] [place] [address] 2019 [place] [address] 9:54am Anion Gap April 5 12-31 MAIN LAB, [address] [place] [address] 2019 [place] [address] 6:21am Blood Urea November 13 mg/dL 02-10 MAIN LAB, [address] [place] [address] Nitrogen 2019 [place] [address] 9:54am Blood Urea November 10 mg/dL 02-10 MAIN LAB, [address] [place] [address] Nitrogen 2019 [place] [address] 6:21am Creatinine November 0.68 mg/dL 0.66-1.25 MAIN LAB , [address] [place] [address] 2019 [place] [address] 9:54am Creatinine November 0.56 mg/dL 0.66-1.25 MAIN LAB , [address] [place] [address] 2019 [place] [address] 6:21am Glomerular November > 60 mL/min >60.0 MAIN LA B, [address] [place] [address] [place] [address] Rate Calc 9:54am Glomerular November > 60 mL/min >60.0 MAIN LA B, [address] [place] [address] [place] [address] Rate Calc 6:21am Glucose November 115 mg/dL 70-100 MAIN LAB, [address] [place] [address] 2019 [place] [address] 9:54am Glucose November 87 mg/dL 70-100 MAIN LAB, [address] [place] [address] 2019 [place] [address] 6:21am Calcium November 9.1 mg/dL 8.4-10.2 MAIN LAB, [address] [place] [address] 2019 [place] [address] 9:54am Calcium November 7.9 mg/dL 8.4-10.2 MAIN LAB, [address] [place] [address] Level 2019 [place] [address] 6:21am Calcium November 9.3 mg/dL 8.4-10.2 MAIN LAB, [address] [place] [address] Adjusted 2019 [place] [address] for Albumin 9:54am Calcium November 9.0 mg/dL 8.4-10.2 MAIN LAB, [address] [place] [address] Adjusted 2019 [place] [address] for Albumin 6:21am Phosphorus March 2.8 mg/dL 2.5-4.5 MAIN LAB, [address] [place] [address] Level 2019 [facility] [address] 11:00pm Magnesium March 1.9 mg/dL 1.6-2.3 MAIN LAB, [address] [place] [address] Level 2019 [facility] [address] 11:00pm Total November 0.9 mg/dL 0.2-1.3 MAIN LAB, [address] [place] [address] Bilirubin 2019 [facility] 286[address] 9:54am Total November 1.0 mg/dL 0.2-1.3 MAIN LAB, [address] [place] [address] Bilirubin 2019 [facility] [address] 6:21am Direct October 0.0 mg/dL 0-0.3 MAIN LAB, [address] [place] [address] Bilirubin 2019 [facility] [address] 8:45pm Aspartate April 122 U/L 17 MAIN LAB, [address] [place] [address] Amino 2019 [facility] [address] Transf 9:54am (AST/SGOT) Aspartate April 212 U/L MAIN LAB, [address] [place] [address] Amino 2019 [facility] [address] Transf 6:21am (AST/SGOT) Alanine April 163 U/L <50 As of 10/17/19, MAIN L AB, [address] [place] [address] Aminotransf 2019 the Reference [place] [address] erase 9:54am Range for (ALT/SGPT) ALT/SGPT for adult patients has been updated. The Reference Range for ALT/SGPT has not been established for patients <18 years of age. Alanine April 143 U/L <50 As of 10/17/19, MAIN L AB, [address] [place] [address] Aminotransf 2019 the Reference [facility] [address] erase 6:21am Range for (ALT/SGPT) ALT/SGPT for adult patients has been updated. The Reference Range for ALT/SGPT has not been established for patients <18 years of age. Lactic Acid March 3.6 mmol/L 0.7-2.1 MAIN LA B, [address] [place] [address] Level 2019 [facility] [address] 6:01am Lactate April 831 U/L 313-618 Note: LDH MAIN LAB, [address] [place] [address] Dehydrogena [address] [facility] [place] [address] se 9:54am be decreased upon refrigerated or frozen storage. Lactate April 1103 U/L 313-618 Note: LDH MAIN LAB, [address] [facility] Dehydrogena [address] [place] [address] se 6:21am be decreased upon refrigerated or frozen storage. Creatine April 667 U/L 55-170 MAIN LAB, [address] [facility] Kinase 2019 [place] [address] 6:21am Total November 7.5 g/dL 6.3-8.2 MAIN LAB, [address] [place] [address] Protein 2019 [place] [address] 9:54am Total November 5.8 g/dL 6.3-8.2 MAIN LAB, [address] [place] [address] Protein 2019 [place] [address] 6:21am Albumin April 4.0 g/dL 3.5-5.0 MAIN LAB, [address] [place] [address] 2019 [place] [address] 9:54am Albumin April 2.9 g/dL 3.5-5.0 MAIN LAB, [address] [place] [address] 2019 [place] [address] 6:21am Cholesterol March 232 mg/dL 59-199 MAIN LAB , [address] [place] [address] [address] [place] [address] 11:00pm HDL March 29 mg/dL 40-60 The National MAIN LA B, [address] [facility] Cholesterol [address] [place] [address] 11:00pm Education Program (NCEP) has set the following guidelines (reference values) for cholesterol, HDL:Low HDL: <40 mg/dLNormal: 40-60 mg/dLDesirable : >60 mg/dL LDL March 182.6 mg/dL 0-129 MAIN LAB , [address] [place] [address] [place] [address] 11:00pm VLDL March 20.4 mg/dL 0-32 MAIN LAB, [address] [place] [address] [place] [address] 11:00pm Cholesterol March 8.00 0-3.9 MAIN LAB , [address] [place] [address] /HDL Ratio 2019 [place] [address] 11:00pm Triglycerid March 102 mg/dL 0-149 MAIN LAB , [address] [facility] es Level 2019 [facility] [address] 11:00pm Alkaline April 214 U/L 38-126 MAIN LAB, [address] [place] [address] Phosphatase 2019 . [place] [address] 9:54am Alkaline April 155 U/L 38-126 MAIN LAB, [address] [place] [address] Phosphatase 2019 . [place] [address] 6:21am Thyroid March 1.73 mlU/L 0.47-4.68 The results of MAIN LAB, [address] [place] [address] Stimulating 2019 this assay can . [facility] [address] Hormone 11:00pm be falsely (TSH) decreased in patients who consume Biotin. Hemoglobin March 5.08 % <5.7 <5.7%: MAIN LAB, [address] [place] [address] A1c Percent 2019 Normal5.7%-6.4 [facility] [address] 5:45pm %: Prediabetes>=6 .5%: Diagnostic for diabetesGoals for Glycemic Control in Diabetes (ADA 2018)<7.0%: A1c target for non adults with diabetes. More or less stringent glycemic goals may be appropriate for individual patients.<7.5% : A1c target for children and adolescents with type I diabetes. A lower goal is reasonable if it can be achieved without excessive hypoglycemia. Estimated October 99 mg/dL MAIN LAB, [address] [place] [address] Average 2019 [facility] [address] Glucose 5:45pm mg/dL C-Reactive March 245.8 mg/L 5-10 MAIN LAB , [address] [place] [address] Protein 2019 [place] [address] 8:45pm Influenza March Negative Negative MAIN LAB, [address] [place] [address] Type A 2019 [place] [address] (RT-PCR) 6:30pm Influenza March Negative Negative MAIN LAB, [address] [place] [address] Type B 2019 [place] [address] (RT-PCR) 6:30pm Respiratory March Negative Negative MAIN LAB , [address] [place] [address] Syncytial 2019 [place] [address] Virus 6:30pm (RT-PCR Herpes March Negative CH[facility] [...] (PCR) 8:45pm CSF October TNP Test not [facility] Enterovirus 2019 performedResul LA BORATORIES (PCR) 8:45pm ts not available due to reference lab testing / data retrieval issues. Coronavirus March Negative Negative This test has [facility] 2019 PCR 2019 not been [...] invitro diagnostic tests for detection and/or diagnosis [id number] under section 564(b)(1) of Act, 21 U.S.C ?360bbb-3(b) (1), unless the authorization is terminated orrevoked sooner.Negativ e results do not preclude 2019-nCoV infection andshould not be used as the sole basis for treatment or otherpatient management decisions. Negative results must becombined with clinical observations, patient history, andepidemiolog ical information.Pe rformed on the Quantrosgic [place] Fusion instrument Reference March [place] Please [facility] Lab Test 2019 [facility] indicate the LABORA TORIES Performing 6:13pm Triage Site [id number] performed or referred by[address] [address] Varicella-Z March TNP Test not [facility] ICAL tony IgG 2019 performedResul LABO RATORIES Antibody 5:45pm ts not available due to reference lab testing / data retrieval issues. CSF March Clear MAIN LAB, [address] Appearance [address] [place] [address] 8:45pm CSF Color March Colorless MAIN LAB, [address] [place] [address] 8:45pm CSF Volume March 14 mL MAIN LAB, [address] [facility] 2019 [place] [address] 8:45pm Body Fluid March 4 MAIN LAB, [address] [place] [address] [place] [address] Tubes 8:45pm CSF WBC March 3 0-5 Cell Count MAIN LAB, [address] [place] [address] 2019 performed [place] . [place] [address] 8:45pm tube number 4 Cell Count performed on tube number 4 CSF RBC March 2 0-9 Cell Count MAIN LAB, [address] [place] [address] 2019 performed [place] . [place] [address] 8:45pm tube number 4 Cell Count performed on tube number 4 CSF Glucose March 60 mg/dL 40-70 MAIN LAB , [address] [place] [address] 2019 . [place] [address] 8:45pm CSF Total March 70 mg/dL 12-60 MAIN LAB, [address] [place] [address] Protein 2019 [place] [address] 8:45pm Babesia March Negative Negative [facility] microti DNA 2019 LABORAT ORIES (PCR) 7:00am Babesia March Negative Negative [facility] duncani DNA 2019 LABORAT ORIES (PCR) 7:00am Babesia March Negative Negative [facility] divergens/M 2019 -----ADDITIONA LA BORATORIES O-1 (PCR) 7:00am L INFORMATION--- --This test was developed and its performance characteristic sdetermined by [facility] in a manner consistent with José Antonio ts. This test has not been cleared or approved bythe U.S. Food and Drug Administration . Anaplasma March Positive Negative [facility] phagocytoph 2019 LABORAT ORIES davon DNA 7:00am (PCR) Ehrlichia March Negative Negative [facility] chaffeensis 2019 LABORAT ORIES DNA (PCR) 7:00am Ehrlichia March Negative Negative [facility] ewingii/can 2019 LABORAT ORIES is (PCR) 7:00am Ehrlichia March Negative Negative [facility] muris-like 2019 -----ADDITIONA LAB ORATORIES DNA (PCR) 7:00am L INFORMATION--- --This test was developed and its performance characteristic sdetermined by [facility] in a manner consistent with [facility] ts. This test has not been cleared or approved bythe U.S. Food and Drug Administration . Borrelia March Negative Negative [facility] 2019 -----ADDITIONA LABO RATORIES (PCR) 7:00am L INFORMATION--- --This test was developed and its performance characteristic sdetermined by [facility] in a manner consistent with [facility] ts. This test has not been cleared or approved bythe U.S. Food and Drug Administration .Test Performed by:[address] [address]Jep Director: Ford Hector M.D. Ph.D.; CLIA# [id number] Urine March Negative Cutoff:200 MAIN LAB, [address] [facility] Methadone 2019 ng/[place] [address] Screen 7:27pm Venous March 7.43 pH 7.31-7.41 MAIN LAB, [address] [facility] Blood pH [address] [place] [address] 5:45pm Venous March 39 mmHg 41-51 MAIN LAB, [address] [facility] Blood pCO2 2019 [place] [address] at Patient 5:45pm Temp Venous March 25.8 mmol/L 23-30 MAIN LAB , [address] [facility] Blood HCO3 [address] [place] [address] 5:45pm Venous October 1.0 mmol/L -2.0-2.0 MAIN LAB, [address] [place] [address] [place] [address] Excess 5:45pm Microbiology Results Procedure Source Result Collection Result Result Performin g Date/Time Date/Time Comment Site Blood Culture Blood, Left NO GROWTH April 15April MAIN LAB, [address] [facility] Antecubital AFTER 2019 9:50pm 2019 [place] [address] DAYS 7:26am Urine Culture Ur,Clean Catch April 13March MAIN LAB, [address] [facility] 2019 8:27pm 2019 [place] [address] 8:39am Gram Stain Csf April 13March [facility] LAB, [address] [place] [address] 2019 9:45pm 2019 [place] [address] 5:13am CSF Culture Csf NO GROWTH April 13March MAIN LAB, [address] [place] [address] AFTER 72 2019 9:45pm 2019 [place] [address] HOURS 8:47am Diagnostic Imaging Reports Report Dictated Date/Time Dictated By Status Electrocardiogram April 13, 2020 6:51pm Jet Buck MD completed [facility] EKG PATIENT NAME: ROCIO AUGUSTE 003 [...] 04/13/2020 7:08:34 PM Referred By: Arnel Buck [facility] med By:John Buck 04/13/20 1908 Electrocardiogram April 14, 2020 2:23am Mau Nguyen MD completed [facility] EKG PATIENT NAME: ROCIO AUGUSTE [id number] DATE OF : 1950 ATTENDING PHYSICIAN: PRIMARY [...] April 14, 2020 8:19am Sherie Martinez completed [facility] CAT SCAN REPORT PATIENT NAME: ROCIO [...] by vRAD. dd: 04/14/20818 <Electronically signed by Yuok sparrow MD in OV> 04/14/2021 Radiology Report April 14, 2020 8:27am Sherie Martinez completed [facility] RADIOLOGY REPORT PATIENT NAME: ROCIO AUGUSTE [...] 14, 2020 3:57pm Mary Vu MD completed [facility] RADIOLOGY REPORT PATIENT NAME: ROCIO AUGUSTE 11 003 DATE OF : 1950 ATTENDING/ER PHYSICIAN: Helene Griffin MD ER/ATTENDING PHYSICIAN: Mau Nguyen MD PRIMARY CARE PHYS: Out [facility] ADMITTING PHYSICIAN: Isai Mcduffie MD CONSULTING PHYSICIAN: [...] 16, 2020 3:21pm Mary Vu MD completed [facility] CAT SCAN REPORT PATIENT NAME: ROCIO [...] this exam. Addended on: 04/19/20 1249 by Mayr Vu STUDY: CT Chest Abd Pel w/ [...] 16, 2020 4:09pm Mary Vu MD completed [facility] ULTRASOUND REPORT PATIENT NAME: ROCIO AUGUSTE [...] have a copy on file here at [facility]? No O ctober 2019 8:44pm Pt has a Living Will? No April 13, 2020 8:44pm Do we have a copy on file here at [facility]? No O ctober 2019 8:44pm Pt has a Power of Associate Director Career Services? No March 8:44pm Do we have a copy on file here at [facility]? 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 ANAPLAMA,SEPSIS Reason for Visit Fever, unknown origin Acute kidney injury Anaplasmosis Elevated LFTs Sepsis Encounters Encounter Location(s) Arrival/Admit Date Discharge/Depart Provi nik(s) Date Registered [facility] April 14, 2020 Isai Figueroa , Outpatient Medical 2:32am [facility]ospital[facility] ts Discharged [facility] April 14, 2020 April 19, 2020 Maximilian Griffin Inpatient Medical 4:55am 12:11pm MD Center-Progressiv e Care Unit Registered [facility] April 21, 2020 Anisa Link Outpatient Medical 1:40pm MADIS[facility] Browne [facility] Departed [facility] April 23, 2020 April 23, 2020 Maximilian Griffin Clinical Medical 9:44am 9:45am MD Center-Laboratory Departed [facility] April 27April 27, 2020 Juan Jose Lima Physician/[facility] Medical 2019 2:12pm 3:18pm MD Yara nik Office Center-[facility] Visit rn [facility] Registered [facility] April 29, April 30, 2020 Anuradha [...] Immunizations Immunization Event Date Not Given Dose [employer] Lot Vac cine Reason Number Number Informatio n Statement (VIS) Deta il Influenza High April [id number] Dose Quad 2019 Mental Status Observation Response Date Recorded Comprehension Ability Understands Concepts April 15 0 7:00pm Speech Appropriate April 14, 2020 2 :44am Clear April 14, 2020 2 :44am Medical Equipment No Medical Equipment Information available Insurance Providers Guarantor ROCIO AUGUSTE Address [address] [place] [id number] Contact Info. Home Phone: Payer Policy Id Coverage Id Subscriber's Subscriber Id Effective E xpiration Name Date Date MEDICARE [id number] ROCIO AUGUSTE [id number] PART A AND B 42 COVERAGE SELF PAY Self N/A Plan of Treatment Pt is recently d/c'd from [facility] following admission for altered mentation, lab abnormalities [...] Provider Contact Provider Address Referral Date Information [facility]: [phone] [facility] [place] [address] Work Phone: [facility] [place] [address] [place] [address] [address] Work Phone: [facility] [place] [address] [facility]fa[facility] [phone] Future Procedures Future procedure information is [...] Oxygen saturation by Pulse 96 % 95-100 [facility] 2019 2:23pm oximetry BP Systolic 116 mm[Hg] [...]
--- OUTSIDE RECORDS SUMMARY | 2022-01-19 09:31 | XMS_ITS | Continuity of Care Document ---
:1950 Author Organization [facility] Address [address] [place] [address] Phone Care Team Providers Name Role Phone McduffieRinIsai Admit Provider Helene Griffin Attending Provider Juan Jose Livingston Primary Care Provider Allergies, Adverse Reactions, Alerts No known allergies. Medications Medication Status Dose Units Route Directions Qty Days Start End Ins tructions Date Date Fluzone Discontin 0.7 ML IM ONCE 0.7 April HighDose ued 10th, er Quad -2019, PF (flu vacc 2:12pm 2019 [id number](65 3:17pm yr up)-PF) 240 mcg/0.7 mL Doxycycline Discontin 100 MG PO TWICE A DAY April N ovemb Hyclate ued , er 2019, 3:02pm 2019 12:01a m Problems Active Problems Medical Problem Onset Date [...] November 8.24 4.8-10.8 MAIN LAB , [address] [facility] Count 2019 1000/mm3 [facility] 15788 9:54am White Blood November 6.15 4.8-10.8 MAIN LAB , [address] [facility] Count 2019 1000/mm3 [facility] [address] 6:21am Red Blood November 5.30 M/mm3 4.70-6.00 MAIN LAB, [address] [facility] Count 2019 [facility] 63968 9:54am Red Blood November 4.61 M/mm3 4.70-6.00 MAIN LAB, [address] Count 2019 [place] [address] 6:21am Hemoglobin April 15.7 g/dL 14.0-18.0 MAIN LAB, [address] [facility] 2019 [facility] 49149 9:54am Hemoglobin November 13.6 g/dL 14.0-18.0 MAIN LAB, [address] [facility] 2019 [facility] [address]54[address] 6:21am Hematocrit November 47.0 % 42-52 MAIN LAB, [address] [place] [address] 2019 [place] [address] 9:54am Hematocrit November 40.5 % 42-52 MAIN LAB, [address] [place] [address] 2019 [place] [address] 6:21am Mean April 88.7 fL 80.0-94.0 MAIN LAB, [address] [facility] Corpuscular 2019 . [place] [address] Volume 9:54am Mean April 87.9 fL 80.0-94.0 MAIN LAB, [address] [facility] Corpuscular 2019 [place] [address] Volume 6:21am Mean April 29.6 pg 27-31 MAIN LAB, [address] [facility] Corpuscular 2019 [place] [address] Hemoglobin 9:54am Mean April 29.5 pg 27-31 MAIN LAB, [address] [facility] Corpuscular 2019 [place] [address] Hemoglobin 6:21am Mean April 33.4 g/dL 33-37 MAIN LAB, [address] [facility] Corpuscular 2019 [place] [address] Hemoglobin 9:54am Concent Mean April 33.6 g/dL 33-37 MAIN LAB, [address] [facility] Corpuscular 2019 [place] [address] Hemoglobin 6:21am Concent Red Cell November 14.3 % 11.5-14.5 MAIN LAB, [address] [place] [address] Distributio 2019 [place] [address] n Width 9:54am Red Cell November 13.8 % 11.5-14.5 MAIN LAB, [address] [place] [address] Distributio 2019 [place] [address] n Width 6:21am Platelet November 316 1000/mm3 140-440 MAIN LA B, [address] [facility] Count 2019 [place] [address] 9:54am Platelet November 87 1000/mm3 140-440 MAIN LAB , [address] [place] [address] Count 2019 [place] [address] 6:21am Mean November 10.9 fL 7.4-10.4 MAIN LAB, [address] [place] [address] Platelet 2019 [place] [address] Volume 9:54am Mean November 12.6 fL 7.4-10.4 MAIN LAB, [address] [place] [address] Platelet 2019 [place] [address] Volume 6:21am Neutrophils March 81.2 % 40.0-72.0 MAIN LAB , [address] [place] [address] (%) (Auto) 2019 [place] [address] 6:01am Lymphocytes October 11.0 % 17-45 MAIN LAB , [address] [place] [address] (%) (Auto) 2019 [place] [address] 6:01am Monocytes October 6.9 % 3-11 MAIN LAB, [address] [place] [address] (%) (Auto) 2019 [place] [address] 6:01am Eosinophils October 0.0 % 0-3 MAIN LAB , [address] [place] [address] (%) (Auto) [address] [place] [address] 6:01am Basophils October 0.3 % 0-1 MAIN LAB, [address] [place] [address] (%) (Auto) [address] [place] [address] 6:01am Immature October 0.6 % 0-1 MAIN LAB, [address] [place] [address] [place] [address] % (Auto) 6:01am Neutrophils October 2.72 1.4-6.5 MAIN LAB , [address] [place] [address] # (Auto) 2019 1000/[place]3 [place] [address] 6:01am Lymphocytes October 0.37 1.2-3.4 MAIN LAB , [address] [place] [address] # (Auto) 2019 1000/[place]3 [place] [address] 6:01am Monocytes # March 0.23 0.0-0.8 MAIN LAB , [address] [place] [address] (Auto) 2019 1000/[place]3 [place] [address] 6:01am Eosinophils October 0.00 0.0-0.7 MAIN LAB , [address] [place] [address] # (Auto) 2019 1000/[place]3 [place] [address] 6:01am Basophils # October 0.01 0.0-0.1 MAIN LAB , [address] [place] [address] (Auto) 2019 1000/[place]3 [place] [address] 6:01am Absolute October 0.0 0-1 MAIN LAB, [address] [place] [address] [place] [address] Granulocyte 6:01am (auto Differentia October Automated MAIN LAB , [address] [place] [address] [place] [address] 6:01am Platelet October Clumped, MAIN LAB, [address] [facility] Estimate [address] [place] [address] 5:12am Platelet March 2+ MAIN LAB, [address] [place] [address] Clumps, 2019 [place] [address] EDTA 5:12am Differentia March See comments Mild MAIN LAB, [address] [facility] l [address] [place] [address] Pathologist 6:01am and new onset 's Review thrombocytopen ia. Laboratory data reviewed. Suggest consideration with hepatitis viral serologies and further image analysis(CT of abdomen) if clinically indicated.Smea r reviewed by pathologist for software quality assurance analyst.Jabari Feliz MD04/16/20 Erythrocyte March 2 mm/hr 0-30 MAIN LAB , [address] [place] [address] [place] [address] on Rate 8:45pm Urine RBC March 0-2 /hpf MAIN LAB, [address] [place] [address] [place] [address] 7:27pm Urine WBC March None seen MAIN LAB, [address] [place] [address] 2019 /[place] [address] 7:27pm Urine March None seen NONE SEEN MAIN LAB, [address] [place] [address] Bacteria 2019 /[place] [address] 7:27pm Urine Mucus March Present MAIN LAB , [address] [place] [address] [place] [address] 7:27pm Ur March Negative Negative Presumptive [facility] ICAL Streptococc 2019 negative for LABO RATORIES us 10:00pm pneumococcal pneumoniae pneumonia, Antigen suggestingno current or recent infection. Infection due to S.pneumoniae cannot be ruled out since the antigen present inthe sample may be below detection limit of the test.--------- PILO TIONAL INFORMATION--- --This assay was performed using the FDA-cleared BinaxNOWStrept ococcus pneumoniae Antigen test, a rapidimmunochr omatographic assay.Test Performed by:[address] [id number] Director: Ford Hector M.D. Ph.D.; CLIA# [id number] Urine March Negative Negative Presumptive [facility] ICAL Legionella 2019 negative for [...] --This assay was performed using the FDA-cleared BinaxNOWJalyngiben ornelasa Urinary Antigen Test, a rapidimmunochr omatographic assay.Test Performed by:[address] [id number] Director: Ford Hector M.D. Ph.D.; CLIA# [id number] Sodium November 137 mmol/L 137-145 MAIN LAB, [address] [facility] 2019 [facility] [address]3496 9:54am Sodium November 138 mmol/L 137-145 MAIN LAB, [address] [place] [address] 2019 [facility] [address] 6:21am Potassium November 4.9 mmol/L 3.6-5.0 MAIN LAB, [address] [place] [address] 2019 [facility] [address]18 9:54am Potassium November 3.7 mmol/L 3.6-5.0 MAIN LAB, [address] [facility] 2019 [place] [address] 6:21am Chloride November 105 mmol/L 98-107 MAIN LAB, [address] [facility] 2019 [place] [address] 9:54am Chloride November 107 mmol/L 98-107 MAIN LAB, [address] [facility] 2019 [place] [address] 6:21am Carbon November 23 mmol/L 22-30 MAIN LAB, [address] [facility] Dioxide 2019 [place] [address] Level 9:54am Carbon November 26 mmol/L 22-30 MAIN LAB, [address] [facility] Dioxide 2019 [facility] [address] Level 6:21am Anion Gap November 9 7- MAIN LAB, [address] [place] [address] 2019 [facility] [address] 9:54am Anion Gap April 5 16 MAIN LAB, [address] [place] [address] 2019 [facility] [address] 6:21am Blood Urea November 13 mg/dL 02-10 MAIN LAB, [address] [place] [address] Nitrogen 2019 [facility] [address] 9:54am Blood Urea November 10 mg/dL 02-10 MAIN LAB, [address] [place] [address] Nitrogen 2019 [facility] 36614 6:21am Creatinine November 0.68 mg/dL 0.66-1.25 MAIN LAB , [address] [place] [address] 2019 [facility] [address] 9:54am Creatinine November 0.56 mg/dL 0.66-1.25 MAIN LAB , [address] [place] [address] 2019 [facility] [address]43 6:21am Glomerular November > 60 mL/min >60.0 MAIN LA B, [address] [place] [address] Filtration 2019 [facility] [address] Rate Calc 9:54am Glomerular November > 60 mL/min >60.0 MAIN LA B, [address] [place] [address] Filtration 2019 [facility] [address] Rate Calc 6:21am Glucose November 115 mg/dL 70-100 MAIN LAB, [address] [place] [address] 2019 [facility] 34928 9:54am Glucose November 87 mg/dL 70-100 MAIN LAB, [address] [place] [address] 2019 [facility] 36870 6:21am Calcium November 9.1 mg/dL 8.4-10.2 MAIN LAB, [address] [place] [address] 2019 [facility] 36088 9:54am Calcium November 7.9 mg/dL 8.4-10.2 MAIN LAB, [address] [place] [address] Level 2019 [facility] 16628 6:21am Calcium November 9.3 mg/dL 8.4-10.2 MAIN LAB, [address] [place] [address] Adjusted 2019 [facility] [address] for Albumin 9:54am Calcium November 9.0 mg/dL 8.4-10.2 MAIN LAB, [address] [place] [address] Adjusted 2019 [facility] [address]258 for Albumin 6:21am Phosphorus March 2.8 mg/dL 2.5-4.5 MAIN LAB, [address] [facility] Level 2019 [facility] 78549 11:00pm Magnesium March 1.9 mg/dL 1.6-2.3 MAIN LAB, [address] [place] [address] 2019 [facility] 98828 11:00pm Total April 0.9 mg/dL 0.2-1.3 MAIN LAB, [address] [place] [address] Bilirubin 2019 [facility] 55947 9:54am Total November 1.0 mg/dL 0.2-1.3 MAIN LAB, [address] [place] [address] Bilirubin 2019 [facility] 15140 6:21am Direct March 0.0 mg/dL 0-0.3 MAIN LAB, [address] [place] [address] Bilirubin 2019 [facility] 20287 8:45pm Aspartate April 122 U/L 17-59 MAIN LAB, [address] [place] [address] Amino 2019 [facility] [address]344 Transf 9:54am (AST/SGOT) Aspartate April 212 U/L MAIN LAB, [address] [place] [address] Amino 2019 [facility] 86299 Transf 6:21am (AST/SGOT) Alanine April 163 U/L <50 As of 10/17/19, MAIN L AB, [address] [place] [address] Aminotransf 2019 the Reference [facility] [address] erase 9:54am Range for (ALT/SGPT) ALT/SGPT for adult patients has been updated. The Reference Range for ALT/SGPT has not been established for patients <18 years of age. Alanine April 143 U/L <50 As of 10/17/19, MAIN L AB, [address] [place] [address] Aminotransf 2019 the Reference [facility] [address]648 erase 6:21am Range for (ALT/SGPT) ALT/SGPT for adult patients has been updated. The Reference Range for ALT/SGPT has not been established for patients <18 years of age. Lactic Acid March 3.6 mmol/L 0.7-2.1 MAIN LA B, [address] [facility] Level 2019 [facility] 99048 6:01am Lactate April 831 U/L 313-618 Note: LDH MAIN LAB, [address] [place], [place] [address]a [address] [place] [address] se 9:54am be decreased upon refrigerated or frozen storage. Lactate April 1103 U/L 313-618 Note: LDH MAIN LAB, [address] [place], [place] [address]a [address] [place] [address] se 6:21am be decreased upon refrigerated or frozen storage. Creatine April 667 U/L 55-170 MAIN LAB, [address] [place] [address] Kinase 2019 [place] [address] 6:21am Total November 7.5 g/dL 6.3-8.2 MAIN LAB, [address] [place] [address] Protein 2019 [place] [address] 9:54am Total November 5.8 g/dL 6.3-8.2 MAIN LAB, [address] [place] [address] Protein 2019 [place] [address] 6:21am Albumin November 4.0 g/dL 3.5-5.0 MAIN LAB, [address] [place] [address] 2019 [place] [address] 9:54am Albumin November 2.9 g/dL 3.5-5.0 MAIN LAB, [address] [place] [address] 2019 [place] [address] 6:21am Cholesterol March 232 mg/dL 59-199 MAIN LAB , [address] [place] [address] Level 2019 [facility] [place] [address] 11:00pm HDL March 29 mg/dL 40-60 [facility] [place] MAIN LA B, [address] [facility] Cholesterol [address] [place] [address] 11:00pm Education Program (NCEP) has set the following guidelines (reference values) for cholesterol, HDL:Low HDL: <40 mg/dLNormal: 40-60 mg/dLDesirable : >60 mg/dL LDL March 182.6 mg/dL 0-129 MAIN LAB , [address] [place] [address] Cholesterol 2019 [place] [address] 11:00pm VLDL March 20.4 mg/dL 0-32 MAIN LAB, [address] [place] [address] Cholesterol 2019 [place] [address] 11:00pm Cholesterol March 8.00 0-3.9 MAIN LAB , [address] [place] [address] /HDL Ratio 2019 [facility] [place] [address] 11:00pm Triglycerid March 102 mg/dL 0-149 MAIN LAB , [address] [facility] es Level 2019 . [place] [address] 11:00pm Alkaline April 214 U/L 38-126 MAIN LAB, [address] [place] [address] [place] [address] 9:54am Alkaline April 155 U/L 38-126 MAIN LAB, [address] [place] [address] [place] [address] 6:21am Thyroid March 1.73 mlU/L 0.47-4.68 The results of MAIN LAB, [address] [place] [address] Stimulating 2019 this assay can . [facility] [address] Hormone 11:00pm be falsely (TSH) decreased in patients who consume Biotin. Hemoglobin March 5.08 % <5.7 <5.7%: MAIN LAB, [address] [place] [address] A1c Percent 2019 Normal5.7%-6.4 [facility] 17855 5:45pm %: Prediabetes>=6 .5%: Diagnostic for diabetesGoals [...] Estimated March 99 mg/dL MAIN LAB, [address] [facility] Average 2019 [place] [address] Glucose 5:45pm mg/dL C-Reactive March 245.8 mg/L 5-10 MAIN LAB , [address] [place] [address] Protein 2019 [place] [address] 8:45pm Influenza March Negative Negative MAIN LAB, [address] [place] [address] Type A 2019 [place] [address] (RT-PCR) 6:30pm Influenza March Negative Negative MAIN LAB, [address] [place] [address] Type B 2019 . [place] [address] (RT-PCR) 6:30pm Respiratory March Negative Negative MAIN LAB , [address] [place] [address] Syncytial 2019 . [place] [address] Virus 6:30pm (RT-PCR Herpes March Negative [facility] 2019 LABORATOR IES Virus I DNA 8:45pm (PCR) Herpes March Negative [facility] 2019 LABORATOR IES Virus II 8:45pm DNA (PCR) Varicella-Z March Not [facility] ICAL tony 2019 Reportable LABORATO JULIO Specimen 8:45pm Descript Varicella-Z March Negative [facility] ICAL tony Virus 2019 LABORAT ORIES DNA (PCR) 8:45pm CSF October TNP Test not [facility] Enterovirus 2019 performedResul LA BORATORIES (PCR) 8:45pm ts not available due to reference lab testing / data retrieval issues. Coronavirus March Negative Negative This test has [facility] 2019 PCR 2019 not been FDA [...] invitro diagnostic tests for detection and/or diagnosis [id number] under section 564(b)(1) of Act, 21 U.S.C ?360bbb-3(b) (1), unless the authorization is terminated orrevoked sooner.Negativ e results do not preclude 2019-nCoV infection andshould not be used as the sole basis for treatment or otherpatient management decisions. Negative results must becombined with clinical observations, patient history, andepidemiolog ical information.Pe rformed on the [employer] [place] Fusion instrument Reference March [place] Please [facility] Lab Test 2019 [facility] lab indicate the LABORA TORIES Performing 6:13pm Triage Site [id number] performed or referred by[address] [address] Varicella-Z March TNP Test not [facility] ICAL tony IgG 2019 performedResul LABO RATORIES Antibody 5:45pm ts not available due to reference lab testing / data retrieval issues. CSF March Clear MAIN LAB, [address] [facility] Appearance [address] [place] [address] 8:45pm CSF Color March Colorless MAIN LAB, [address] [place] [address] 8:45pm CSF Volume March 14 mL MAIN LAB, [address] [facility] 2019 . [place] [address] 8:45pm Body Fluid March 4 MAIN LAB, [address] [place] [address] [place] [address] Tubes 8:45pm CSF WBC March 3 0-5 Cell Count MAIN LAB, [address] [place] [address] 2019 performed [place] . [place] [address] 8:45pm tube number 4 Cell Count performed on tube number 4 CSF RBC March 2 0-9 Cell Count MAIN LAB, [address] [place] [address] [place] [address] 8:45pm tube number 4 Cell Count performed on tube number 4 CSF Glucose March 60 mg/dL 40-70 MAIN LAB , [address] [place] [address] 2019 . [place] [address] 8:45pm CSF Total March 70 mg/dL 12-60 MAIN LAB, [address] [place] [address] Protein 2019 . [place] [address] 8:45pm Babesia March Negative Negative [facility] microti DNA 2019 LABORAT ORIES (PCR) 7:00am Babesia March Negative Negative [facility] duncani DNA 2019 LABORAT ORIES (PCR) 7:00am Babesia March Negative Negative [facility] divergens/M 2019 -----ADDITIONA LA BORATORIES O-1 (PCR) 7:00am L INFORMATION--- --This test was developed and its performance characteristic sdetermined by [facility] in a manner consistent with José Antonio carranza. This test has not been cleared or approved bythe U.S. Food and Drug Administration . Anaplasma March Positive Negative [facility] phagocytoph 2019 LABORAT ORIES davon DNA 7:00am (PCR) Ehrlichia March Negative Negative [facility] chaffeensis 2019 LABORAT ORIES DNA (PCR) 7:00am Ehrlichia March Negative Negative [facility] ewingii/can 2019 LABORAT ORIES is (PCR) 7:00am Ehrlichia March Negative Negative [facility] muris-like 2019 -----ADDITIONA LAB ORATORIES DNA (PCR) 7:00am L INFORMATION--- --This test was developed and its performance characteristic sdetermined by [facility] in a manner consistent with [facility] ts. This test has not been cleared or approved bythe U.S. Food and Drug Administration . Borrelia March Negative Negative [facility] miyamotoi 2019 -----ADDITIONA LABO RATORIES (PCR) 7:00am L INFORMATION--- --This test was developed and its performance characteristic sdetermined by [facility] in a manner consistent with [facility] ts. This test has not been cleared or approved bythe U.S. Food and Drug Administration .Test Performed by:[address] Director: Ford Hector M.D. Ph.D.; CLIA# [id number] Urine March Negative Cutoff:200 MAIN LAB, [address] [facility] Methadone 2019 ng/[place] [address] Screen 7:27pm Venous March 7.43 pH 7.31-7.41 MAIN LAB, [address] [facility] Blood pH 2019 [place] [address] 5:45pm Venous March 39 mmHg 41-51 MAIN LAB, [address] [facility] Blood pCO2 2019 [place] [address] at Patient 5:45pm Temp Venous March 25.8 mmol/L 23-30 MAIN LAB , [address] [facility] Blood HCO3 [address] [place] [address] 5:45pm Venous October 1.0 mmol/L -2.0-2.0 MAIN LAB, [address] [facility] Blood Base [address] [place] [address] Excess 5:45pm Microbiology Results Procedure Source Result Collection Result Result Performin g Date/Time Date/Time Comment Site Blood Culture Blood, Left NO GROWTH April 15April MAIN LAB, [address] [facility] Antecubital AFTER 2019 9:50pm 2019 [place] [address] DAYS 7:26am Urine Culture Ur,Clean Catch April 13March MAIN LAB, [address] [facility] 2019 8:27pm 2019 [place] [address] 8:39am Gram Stain Csf April 13March [facility] LAB, [address] [facility] 2019 9:45pm 2019 [place] [address] 5:13am CSF Culture Csf NO GROWTH April 13March [facility] LAB, [address] [place] [address] AFTER 72 2019 9:45pm 2019 [place] [address] HOURS 8:47am Diagnostic Imaging Reports Report Dictated Date/Time Dictated By Status Electrocardiogram April 13, 2020 6:51pm Jet Buck MD completed [facility] EKG PATIENT NAME: ROCIO AUGUSTE 003 [...] 04/13/2020 7:08:34 PM Referred By: Arnel Buck [facility] med By:John Buck 04/13/20 1908 Electrocardiogram April 14, 2020 2:23am Mau Nguyen MD completed [facility] EKG PATIENT NAME: ROCIO AUGUSTE [id number] DATE OF : 1950 ATTENDING PHYSICIAN: PRIMARY [...] Report April 14, 2020 8:19am Sherie Martinez D completed [facility] CAT SCAN REPORT PATIENT NAME: ROCIO [...] with preliminary r eport by vRAD. dd: 04/14/2019 <Electronically signed by Yuko sparrow MD in OV> 04/14/20 0821 Radiology Report April 14, 2020 8:27am Sherie Martinez completed [facility] RADIOLOGY REPORT PATIENT NAME: ROCIO AUGUSTE 11 003 DATE OF : 1950 ATTENDING/ER PHYSICIAN: Helene Griffin MD ER/ATTENDING PHYSICIAN: Mau Nguyen MD PRIMARY CARE PHYS: Out [facility] ADMITTING PHYSICIAN: Isai Mcduffie MD CONSULTING PHYSICIAN: [...] of the bilateral s houlder joints. dd: 04/14/20 0827 <Electronically signed by Yuko sparrow MD in OV> 04/14/20 0829 Radiology Report April 14, 2020 3:57pm Mary Vu MD completed [facility] RADIOLOGY REPORT PATIENT NAME: ROCIO AUGUSTE 11 003 DATE OF : 1950 ATTENDING/ER PHYSICIAN: Helene Griffin MD ER/ATTENDING PHYSICIAN: Mau Nguyen MD PRIMARY CARE PHYS: Out [facility] ADMITTING PHYSICIAN: Isai Mcduffie MD CONSULTING PHYSICIAN: [...] 16, 2020 3:21pm Mary Vu MD completed [facility] CAT SCAN REPORT PATIENT NAME: ROCIO [...] 16, 2020 4:09pm Mary Vu MD completed [facility] ULTRASOUND REPORT PATIENT NAME: ROCIO AUGUSTE [...] have a copy on file here at [facility]? No O ctober 2019 8:44pm Pt has a Living Will? No April 13, 2020 8:44pm Do we have a copy on file here at [facility]? No O ctober 2019 8:44pm Pt has a Power of Pricing Lead? No March 8:44pm Do we have a copy on file here at [facility]? 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 April 14, 2020 Isai Figueroa , Outpatient Medical 2:32am [facility] Discharged [facility] April 14, 2020 April 19, 2020 Maximilian Griffin Inpatient Medical 4:55am 12:11pm , [place] Registered [facility] April 21, 2020 Anisa Link Outpatient Medical 1:40pm [facility] Departed [facility] April 23, 2020 April 23, 2020 Maximilian Griffin Clinical Medical 9:44am 9:45MD waldemar [facility]atory Departed [facility] April 27, April 27, 2020 Juan Jose [facility] 2019 2:12pm 3:18pm MD Yara nik Office [facility] Visit [facility] Registered [facility] April 29, April 30, 2020 Anuradha Bowling Outpatient Medical 2019 8:08pm 6:20pm MD [facility] Registered [facility] May 03, Paty Hurt Outpatient Medical 2019 8:41am [facility] Location Departed [facility] May 04, May 04, 2020 Juan Jose [facility] Phys[facility] 2019 10:47am 11:58am MD Yara nik Office [facility] Visit [facility] Departed [facility] June 23, 2020 June 23, 2020 Omero Lima Phys[facility] 7:41am 11:59pm MD Yara nik Office [facility] Visit [facility] Recent Diagnosis Onset Date Anaplasmosis Anaplasmosis HLD [...] Immunizations Immunization Event Date Not Given Dose Roll Forming Machine Set Up Mechanic Lot Vac cine Reason Number Number Informatio n Statement (VIS) Deta il Influenza High April [id number] Dose Quad 2019 Mental Status Observation Response Date Recorded Comprehension Ability Understands Concepts April 15 0 7:00pm Speech Appropriate April 14, 2020 2 :44am Clear April 14, 2020 2 :44am Medical Equipment No Medical Equipment Information available Insurance Providers Guarantor ROCIO AUGUSTE Address [facility] [facility] [id number] Contact Info. Home Phone: Payer Policy Id Coverage Id Subscriber's Subscriber Id Effective E xpiration Name Date Date MEDICARE [id number] ROCIO AUGUSTE [id number] PART A AND B 42 JR COVERAGE SELF PAY Self N/A Plan of Treatment LDL approaching the 190 range, we discussed initiating lifestyle modification versus that plus statin. He elects the former and we will repeat labs in approximately 3 months and reevaluate. Patient noticeably more lucid and able to communicate recent events clearly. Oriented to person place and time. He does have several lab abnormalities that we will follow-up on in a few months. See below. Future Tests Future scheduled test information is unavailable Pending Tests Pending diagnostic test information is unavailable Future Visits Future appointment information is unavailable Referrals to Other Providers Reason for Referral Start Provider Provider Contact Provider Address Referral Date Information [facility] Work Phone: [phone] [facility] [address] [phone] Juan Jose Livingston Work Phone: [facility] [place] [phone] [facility] [phone] Juan Jose Livingston Work Phone: [facility] [phone] [phone] Future Procedures Future procedure information is [...] 9:37am Respiratory rate 19 /min -April 19, 020 9:37am Oxygen saturation by Pulse 97 % 95-100 2019 9:37am oximetry BP Systolic 148 mm[Hg] 100-140 April 19 9:37am BP Diastolic 84 mm[Hg] 50-85 April 19 9:37am BMI (Body Mass Index) 33.7 kg/m2 April 142019 2:41pm Height 69.5 [in_i] April 27 020 2:23pm Weight 105.68 kg April 27, [...] 182019 2:23pm Height 71 [in_i] April 29 020 9:26am Weight 104.00 kg April 29, 2 020 6:15pm Body Temperature 97.5 [degF] 97.6-99.6 April 30, 2020 3:31pm Heart Rate 92 /min 60-100 April 30, 020 3:31pm Respiratory rate 20 /min 12-24 April 30, 2020 3:31pm Oxygen saturation by Pulse 99 % 95-100 2019 3:31pm oximetry BP Systolic 116 mm[Hg] 100-140 April 30, 2 020 3:31pm BP Diastolic 72 mm[Hg] 50-85 April 30, 020 3:31pm Height 70.5 [in_i] May 04, 2 020 11:26am Weight 107.50 kg May 04, 020 11:26am Body Temperature 96.4 [degF] 97.6-99.6 May 04, 2020 11:26am Heart Rate 80 /min 60-100 May 04, 020 11:26am Respiratory rate 16 /min 12-24 May 04, 2020 11:26am BP Systolic 122 mm[Hg] 100-140 May 04, 2 020 11:26am BP Diastolic 82 mm[Hg] 50-85 May 04, 020 11:26am BMI (Body Mass Index) 33.5 kg/m2 April 182019 11:26am
--- OUTSIDE RECORDS SUMMARY | 2022-01-19 09:31 | XMS_ITS | Continuity of Care Document ---
:1950 Author Organization [facility] Address [address] [place] [address] Phone Care Team Providers Name Role Phone McduffieRinIsai Admit Provider Hleene Griffin Attending Provider Juan Jose Livingston Primary Care Provider Allergies, Adverse Reactions, Alerts No known allergies. Medications No known medications. Problems Active Problems Medical Problem Onset Date Status HLD (hyperlipidemia) Active Anaplasmosis Active Procedures Procedure Date Performed Status CT Head w/o Contrast April 13, 2020 6:18pm completed INTERFACE ELECTROCARDIOGRAM April 13, 2020 6:20pm comple jaguar Chest 1 vw April 13, 2020 6:39pm completed INTERFACE ELECTROCARDIOGRAM April 14, 2020 1:39am comple jaguar Chest 1 vw April 14, 2020 1:39am completed US Abdomen (Limited) April 16, 2020 8:00am completed CT Chest Abd Pel w/ Contrast April 16, 2020 7:57am compl eted Blood Culture April 15, 2020 [...] Blood November 8.24 4.8-10.8 MAIN LAB , [address] [place] [address] Count 2019 1000/mm3 [facility] [address] 10:54am White Blood November 6.15 4.8-10.8 MAIN LAB , [address] [place] [address] Count 2019 1000/mm3 [place] [address] 7:21am Red Blood November 5.30 M/mm3 4.70-6.00 MAIN LAB, [address] [place] [address] Count 2019 [place] [address] 10:54am Red Blood November 4.61 M/mm3 4.70-6.00 MAIN LAB, [address] [place] [address] Count 2019 [place] [address] 7:21am Hemoglobin November 15.7 g/dL 14.0-18.0 MAIN LAB, [address] [place] [address] 2019 [place] [address] 10:54am Hemoglobin November 13.6 g/dL 14.0-18.0 MAIN LAB, [address] [place] [address] 2019 [place] [address] 7:21am Hematocrit November 47.0 % 42-52 MAIN LAB, [address] [place] [address] 2019 [place] [address] 10:54am Hematocrit November 40.5 % 42-52 MAIN LAB, [address] [place] [address] 2019 [place] [address] 7:21am Mean November 88.7 fL 80.0-94.0 MAIN LAB, [address] [place] [address] Corpuscular 2019 [place] [address] Volume 10:54am Mean November 87.9 fL 80.0-94.0 MAIN LAB, [address] [place] [address] Corpuscular 2019 . [facility] [place] [address] Volume 7:21am Mean April 29.6 pg 27-31 MAIN LAB, [address] [place] [address] [place] [facility] [place] [address] Hemoglobin 10:54am Mean April 29.5 pg 27-31 MAIN LAB, [address] [place] [address] [place] [facility] [place] [address] Hemoglobin 7:21am Mean April 33.4 g/dL 33-37 MAIN LAB, [address] [place] [address] [place] [facility] [place] [address] Hemoglobin 10:54am Concent Mean April 33.6 g/dL 33-37 MAIN LAB, [address] [place] [address] Corpuscular 2019 . [facility] [place] [address] Hemoglobin 7:21am Concent Red Cell April 14.3 % 11.5-14.5 MAIN LAB, [address] [place] [address] Distributio 2019 . [facility] [place] [address] n Width 10:54am Red Cell April 13.8 % 11.5-14.5 MAIN LAB, [address] [place] [address] Distributio 2019 . [facility] [place] [address] n Width 7:21am Platelet April 316 1000/mm3 140-440 MAIN LA B, [address] [place] [address] Count 2019 [place] [address] 10:54am Platelet April 87 1000/mm3 140-440 MAIN LAB , [address] [place] [address] Count 2019 [place] [address] 7:21am Mean April 10.9 fL 7.4-10.4 MAIN LAB, [address] [place] [address] Platelet 2019 [place] [address] Volume 10:54am Mean April 12.6 fL 7.4-10.4 MAIN LAB, [address] [place] [address] Platelet 2019 [place] [address] Volume 7:21am Neutrophils March 81.2 % 40.0-72.0 MAIN LAB , [address] [place] [address] (%) (Auto) 2019 [place] [address] 7:01am Lymphocytes October 11.0 % 17-45 MAIN LAB , [address] [place] [address] (%) (Auto) 2019 . [facility] [place] [address] 7:01am Monocytes March 6.9 % 3-11 MAIN LAB, [address] [place] [address] (%) (Auto) 2019 [place] [address] 7:01am Eosinophils October 0.0 % 0-3 MAIN LAB , [address] [place] [address] (%) (Auto) 2019 [place] [address] 7:01am Basophils October 0.3 % 0-1 MAIN LAB, [address] [place] [address] (%) (Auto) [address] [place] [address] 7:01am Immature October 0.6 % 0-1 MAIN LAB, [address] [place] [address] [place] [address] % (Auto) 7:01am Neutrophils October 2.72 1.4-6.5 MAIN LAB , [address] [place] [address] # (Auto) 2019 1000/[place]3 [place] [address] 7:01am Lymphocytes October 0.37 1.2-3.4 MAIN LAB , [address] [place] [address] # (Auto) 2019 1000/[place]3 [place] [address] 7:01am Monocytes # March 0.23 0.0-0.8 MAIN LAB , [address] [place] [address] (Auto) 2019 1000/[place]3 [place] [address] 7:01am Eosinophils October 0.00 0.0-0.7 MAIN LAB , [address] [place] [address] # (Auto) 2019 1000/[place]3 [place] [address] 7:01am Basophils # October 0.01 0.0-0.1 MAIN LAB , [address] [place] [address] (Auto) 2019 1000/[place]3 [place] [address] 7:01am Absolute October 0.0 0-1 MAIN LAB, [address] [place] [address] [place] [address] Granulocyte 7:01am (auto Differentia October Automated MAIN LAB , [address] [place] [address] [place] [address] 7:01am Platelet October Clumped, MAIN LAB, [address] [place] [address] [place] [address] 6:12am Platelet October 2+ MAIN LAB, [address] [place] [address] Clumps, 2019 [place] [address] EDTA 6:12am Differentia March See comments Mild MAIN LAB, [address] [place] [address] [place] [address] Pathologist 7:01am and new onset 's Review thrombocytopen ia. Laboratory data reviewed. Suggest consideration with hepatitis viral serologies and further image analysis(CT of abdomen) if clinically indicated.Smea r reviewed by pathologist for software quality specialist.Jabari Feliz MD04/16/20 Erythrocyte March 2 mm/hr 0-30 MAIN LAB , [address] [place] [address] [place] [address] on Rate 9:45pm Urine RBC March 0-2 /hpf MAIN LAB, [address] [place] [address] 8:27pm Urine WBC March None seen MAIN LAB, [address] [place] [address] 2019 /[place] [address] 8:27pm Urine March None seen NONE SEEN MAIN LAB, [address] Bacteria 2019 /[place] [address] 8:27pm Urine Mucus March Present MAIN LAB , [address] [place] [address] [place] [address] 8:27pm Ur March Negative Negative Presumptive [facility] ICAL Streptococc 2019 negative for LABO RATORIES us 11:00pm pneumococcal pneumoniae pneumonia, Antigen suggestingno current or recent infection. Infection due to S.pneumoniae cannot be ruled out since the antigen present inthe sample may be below detection limit of the test.--------- PILO TIONAL INFORMATION--- --This assay was performed using the FDA-cleared BinaxNOWStrept ococcus pneumoniae Antigen test, a rapidimmunochr omatographic assay.Test Performed by:[facility] [place] [id number] Director: Fodr Hector M.D. Ph.D.; CLIA# [id number] Urine March Negative Negative Presumptive [facility] Legionella 2019 negative for LABOR ATORIES Antigen 11:00pm L. pneumophila serogroup 1antigen, suggesting no recent or current infection.Infe ction due to Legionella cannot be ruled out since otherserogroup s and species may cause disease, antigen may notbe present in urine in early infection, and the level ofantigen present in the urine may be below the detectionlimit of the test.--------- PILO TIONAL INFORMATION--- --This assay was performed using the FDA-cleared BinaxNOWJalyngiben nakul Urinary Antigen Test, a rapidimmunochr omatographic assay.Test Performed by:[facility] [place], [place] [address]Gjm Director: Ford Hector M.D. Ph.D.; CLIA# [id number] Sodium November 137 mmol/L 137-145 MAIN LAB, [address] [facility] 2019 [place] [address] 10:54am Sodium November 138 mmol/L 137-145 MAIN LAB, [address] [place] [address] 2019 [place] [address] 7:21am Potassium November 4.9 mmol/L 3.6-5.0 MAIN LAB, [address] [place] [address] 2019 [place] [address] 10:54am Potassium November 3.7 mmol/L 3.6-5.0 MAIN LAB, [address] [place] [address] 2019 [place] [address] 7:21am Chloride November 105 mmol/L 98-107 MAIN LAB, [address] [place] [address] 2019 [place] [address] 10:54am Chloride November 107 mmol/L 98-107 MAIN LAB, [address] [place] [address] 2019 [place] [address] 7:21am Carbon November 23 mmol/L 22-30 MAIN LAB, [address] [place] [address] Dioxide 2019 [place] [address] Level 10:54am Carbon November 26 mmol/L 22-30 MAIN LAB, [address] [place] [address] Dioxide 2019 [place] [address] Level 7:21am Anion Gap April 9 7-16 MAIN LAB, [address] [place] [address] [address] [place] [address] 10:54am Anion Gap April 5 7-16 MAIN LAB, [address] [place] [address] [address] [place] [address] 7:21am Blood Urea November 13 mg/dL 8- MAIN LAB, [address] [place] [address] Nitrogen 2019 [place] [address] 10:54am Blood Urea November 10 mg/dL 8- MAIN LAB, [address] [place] [address] Nitrogen 2019 [facility] [address] 7:21am Creatinine November 0.68 mg/dL 0.66-1.25 MAIN LAB , [address] [place] [address] 2019 [facility] [address] 10:54am Creatinine November 0.56 mg/dL 0.66-1.25 MAIN LAB , [address] [place] [address] 2019 [facility] [address] 7:21am Glomerular November > 60 mL/min >60.0 MAIN LA B, [address] [place] [address] Filtration 2019 . [place] [address] Rate Calc 10:54am Glomerular November > 60 mL/min >60.0 MAIN LA B, [address] [place] [address] Filtration 2019 . [facility] [address] Rate Calc 7:21am Glucose November 115 mg/dL 70-100 MAIN LAB, [address] [place] [address] 2019 [facility] [address] 10:54am Glucose November 87 mg/dL 70-100 MAIN LAB, [address] [place] [address] 2019 [facility] [address] 7:21am Calcium November 9.1 mg/dL 8.4-10.2 MAIN LAB, [address] [place] [address] 2019 [facility] [address] 10:54am Calcium November 7.9 mg/dL 8.4-10.2 MAIN LAB, [address] [place] [address] 2019 [facility] [address]686 7:21am Calcium November 9.3 mg/dL 8.4-10.2 MAIN LAB, [address] [place] [address] Adjusted 2019 [facility] [address] for Albumin 10:54am Calcium November 9.0 mg/dL 8.4-10.2 MAIN LAB, [address] [place] [address] Adjusted 2019 [facility] 46320 for Albumin 7:21am Phosphorus October 2.8 mg/dL 2.5-4.5 MAIN LAB, [address] [place] [address] 2019 [facility] [address]390 12:00am Magnesium October 1.9 mg/dL 1.6-2.3 MAIN LAB, [address] [place] [address] 2019 [facility] [place] [address] 12:00am Total November 0.9 mg/dL 0.2-1.3 MAIN LAB, [address] [place] [address] 2019 [facility] 254[address] 10:54am Total April 1.0 mg/dL 0.2-1.3 MAIN LAB, [address] [place] [address] Bilirubin 2019 [facility] [address] 7:21am Direct March 0.0 mg/dL 0-0.3 MAIN LAB, [address] [place] [address] Bilirubin 2019 [facility] 43893 9:45pm Aspartate April 122 U/L MAIN LAB, [address] Amino 2019 [facility] [address] Transf 10:54am (AST/SGOT) Aspartate April 212 U/L MAIN LAB, [address] [place] [address] Amino 2019 [facility] [address] Transf 7:21am (AST/SGOT) Alanine April 163 U/L <50 As of 10/17/19, MAIN L AB, [address] Aminotransf 2019 the Reference [facility] [address] erase 10:54am Range for (ALT/SGPT) ALT/SGPT for adult patients has been updated. The Reference Range for ALT/SGPT has not been established for patients <18 years of age. Alanine April 143 U/L <50 As of 10/17/19, MAIN L AB, [address] [place] [address] Aminotransf 2019 the Reference [facility] [address] erase 7:21am Range for (ALT/SGPT) ALT/SGPT for adult patients has been updated. The Reference Range for ALT/SGPT has not been established for patients <18 years of age. Lactic Acid March 3.6 mmol/L 0.7-2.1 MAIN LA B, [address] Level 2019 [facility] [[email or web address] [address] 7:01am Lactate April 831 U/L 313-618 Note: LDH MAIN LAB, [address] [place] [address] Dehydrogena 2019 activity can . [facility] [address] se 10:54am be decreased upon refrigerated or frozen storage. Lactate April 1103 U/L 313-618 Note: LDH MAIN LAB, [address] [place] [address] Dehydrogena [address] [facility] [address] se 7:21am be decreased upon refrigerated or frozen storage. Creatine April 667 U/L 55-170 MAIN LAB, [address] [place] [address] Kinase 2019 [facility] 34979 7:21am Total November 7.5 g/dL 6.3-8.2 MAIN LAB, [address] [place] [address] Protein 2019 [facility] 99144 10:54am Total November 5.8 g/dL 6.3-8.2 MAIN LAB, [address] [place] [address] Protein 2019 [facility] 96058 7:21am Albumin November 4.0 g/dL 3.5-5.0 MAIN LAB, [address] 2019 [facility] 22505 10:54am Albumin November 2.9 g/dL 3.5-5.0 MAIN LAB, [address] [place] [address] 2019 [facility] 44484 7:21am Cholesterol March 232 mg/dL 59-199 MAIN LAB , [address] [place] [address] 2019 [facility] [address]4075 12:00am HDL March 29 mg/dL 40-60 [facility] B, [address] [place] [address] Cholesterol 2019 Cholesterol [facility] [address]651 12:00am Education Program (NCEP) has set the following guidelines (reference values) for cholesterol, HDL:Low HDL: <40 mg/dLNormal: 40-60 mg/dLDesirable : >60 mg/dL LDL March 182.6 mg/dL 0-129 MAIN LAB , [address] [place] [address] Cholesterol 2019 [facility] [address]47 12:00am VLDL March 20.4 mg/dL 0-32 MAIN LAB, [address] [place] [address] Cholesterol 2019 [facility] 37057 12:00am Cholesterol March 8.00 0-3.9 MAIN LAB , [address] [place] [address] /HDL Ratio 2019 [facility] [address] 12:00am Triglycerid March 102 mg/dL 0-149 MAIN LAB , [address] es Level 2019 [facility] [address]22 12:00am Alkaline November 214 U/L 38-126 MAIN LAB, [address] [place] [address] Phosphatase 2019 [facility] [address]2981 10:54am Alkaline November 155 U/L 38-126 MAIN LAB, [address] [place] [address] Phosphatase 2019 [facility] 54532 7:21am Thyroid March 1.73 mlU/L 0.47-4.68 The results of MAIN LAB, [address] Stimulating [address] [place] [address] Hormone 12:00am be falsely (TSH) decreased in patients who consume Biotin. Hemoglobin March 5.08 % <5.7 <5.7%: MAIN LAB, [address] [place] [address] A1c Percent 2019 Normal5.7%-6.4 [place] [address] 6:45pm %: Prediabetes>=6 .5%: Diagnostic for diabetesGoals for Glycemic Control in Diabetes (ADA 2018)<7.0%: A1c target for non adults with diabetes. More or less stringent glycemic goals may be appropriate for individual patients.<7.5% : A1c target for children and adolescents with type I diabetes. A lower goal is reasonable if it can be achieved without excessive hypoglycemia. Estimated March 99 mg/dL MAIN LAB, [address] [place] [address] [place] [address] Glucose 6:45pm mg/dL C-Reactive March 245.8 mg/L 5- MAIN LAB , [address] [place] [address] [place] [address] 9:45pm Influenza March Negative Negative MAIN LAB, [address] [place] [address] [place] [address] (RT-PCR) 7:30pm Influenza March Negative Negative MAIN LAB, [address] [place] [address] [place] [address] (RT-PCR) 7:30pm Respiratory March Negative Negative MAIN LAB , [address] [place] [address] [place] [address] Virus 7:30pm (RT-PCR Herpes March Negative [facility] Simplex 2019 LABORATOR IES Virus I DNA 9:45pm (PCR) Herpes March Negative [facility] Simplex 2019 LABORATOR IES Virus II 9:45pm DNA (PCR) Varicella-Z March Not [facility] tony 2019 Reportable LABORATO JULIO Specimen 9:45pm Descript Varicella-Z March Negative [facility] tony Virus 2019 LABORAT ORIES DNA (PCR) 9:45pm CSF October TNP Test not [facility] Enterovirus 2019 performedResul LA BORATORIES (PCR) 9:45pm ts not available due to reference lab testing / data retrieval issues. Coronavirus March Negative Negative This test has [facility] 2019 PCR 2019 not been FDA YASIR MCKEON Interp 7:13pm cleared or approved. This testhas been authorized by FDA under an EUA for use byauthorized laboratories. This test has been authorized onlyfor detection of nucleic acid from 2019-nCoV, not for anyother viruses or pathogens. This test is only authorizedfor the duration of the declaration that circumstancese xist justifying the authorization of emergency use of invitro diagnostic tests for detection and/or diagnosis [id number] under section 564(b)(1) of Act, 21 U.S.C ?360bbb-3(b) (1), unless the authorization is terminated orrevoked sooner.Negativ e results do not preclude 2019-nCoV infection andshould not be used as the sole basis for treatment or otherpatient management decisions. Negative results must becombined with clinical observations, patient history, andepidemiolog ical information.Pe rformed on the dloHaiti [place] Fusion instrument Reference October [place] Please [facility] Lab Test 2019 [facility] indicate the YASIR MCKEON Performing 7:13pm Triage Site [id number] [place] [address] Varicella-Z March TNP Test not [facility] IC[facility] tony IgG 2019 performedResul LABO RATORIES Antibody 6:45pm ts not available due to reference lab testing / data retrieval issues. CSF March Clear MAIN LAB, [address] Appearance [address] [place] [address] 9:45pm CSF Color March Colorless MAIN LAB, [address] [place] [address] 9:45pm CSF Volume March 14 mL MAIN LAB, [address] [place] [address] 9:45pm Body Fluid March 4 MAIN LAB, [address] Number of [address] [place] [address] Tubes 9:45pm CSF WBC March 3 0-5 Cell Count MAIN LAB, [address] [place] [address] 9:45pm tube number 4 Cell Count performed on tube number 4 CSF RBC March 2 0-9 Cell Count MAIN LAB, [address] [place] [address] 9:45pm tube number 4 Cell Count performed on tube number 4 CSF Glucose March 60 mg/dL 40-70 MAIN LAB , [address] [place] [address] 9:45pm CSF Total March 70 mg/dL 12-60 MAIN LAB, [address] [place] [address] 9:45pm Babesia March Negative Negative [facility] microti DNA 2019 LABORAT ORIES (PCR) 8:00am Babesia March Negative Negative [facility] duncani DNA 2019 LABORAT ORIES (PCR) 8:00am Babesia March Negative Negative [facility] divergens/M 2019 -----ADDITIONA LA BORATORIES O-1 (PCR) 8:00am L INFORMATION--- --This test was developed and its performance characteristic sdetermined by [facility] in a manner consistent with CLIArequiremen ts. This test has not been cleared or approved bythe U.S. Food and Drug Administration . Anaplasma March Positive Negative [facility] phagocytoph 2019 LABORAT ORIES davon DNA 8:00am (PCR) Ehrlichia March Negative Negative [facility] chaffeensis 2019 LABORAT ORIES DNA (PCR) 8:00am Ehrlichia March Negative Negative [facility] ewingii/can 2019 LABORAT ORIES is (PCR) 8:00am Ehrlichia March Negative Negative [facility] muris-like 2019 -----ADDITIONA LAB ORATORIES DNA (PCR) 8:00am L INFORMATION--- --This test was developed and its performance characteristic sdetermined by [facility] in a manner consistent with CLIArequiremen ts. This test has not been cleared or approved bythe U.S. Food and Drug Administration . Borrelia March Negative Negative [facility] 2019 -----ADDITIONA LABO RATORIES (PCR) 8:00am L INFORMATION--- --This test was developed and its performance characteristic sdetermined by [facility] in a manner consistent with José Antonio carranza. This test has not been cleared or approved bythe U.S. Food and Drug Administration .Test Performed by:[address] [address]Dda Director: Ford Hector M.D. Ph.D.; CLIA# [id number] Urine March Negative Cutoff:200 MAIN LAB, [address] Methadone 2019 ng/[place] [address] Screen 8:27pm Venous March 7.43 pH 7.31-7.41 MAIN LAB, [address] [place] [address] [place] [address] 6:45pm Venous March 39 mmHg 41-51 MAIN LAB, [address] [place] [address] [place] [address] at Patient 6:45pm Temp Venous March 25.8 mmol/L 23-30 MAIN LAB , [address] [place] [address] [place] [address] 6:45pm Venous October 1.0 mmol/L -2.0-2.0 MAIN LAB, [address] [place] [address] [place] [address] Excess 6:45pm Microbiology Results Procedure Source Result Collection Result Result Performin g Date/Time Date/Time Comment Site Blood Culture Blood, Left NO GROWTH April 15April MAIN LAB, [address] [place] [address] Antecubital AFTER 2019 9:50pm 2019 [place] [address] DAYS 7:26am Urine Culture Ur,Clean Catch April 13March MAIN LAB, [address] 2019 8:27pm 2019 [place] [address] 8:39am Gram Stain Csf April 13March MAIN LAB, [address] [place] [address] 2019 9:45pm [address] [place] [address] 5:13am CSF Culture Csf NO GROWTH April 13March MAIN LAB, [address] [place] [address] AFTER 72 2019 9:45pm 2019 [place] [address] HOURS 8:47am Diagnostic Imaging Reports Report Dictated Date/Time Dictated By Status Electrocardiogram April 13, 2020 6:51pm Jet Buck MD completed [facility] EKG PATIENT NAME: ROCIO AUGUSTE 003 [...] 04/13/2020 7:08:34 PM Referred By: Arnel Buck [facility] med By:John Buck 04/13/20 1908 Electrocardiogram April 14, 2020 2:23am Mau Nguyen MD completed [facility] EKG PATIENT NAME: ROCIO AUGUSTE [id number] DATE OF : 1950 ATTENDING PHYSICIAN: PRIMARY CARE PHYS: [facility] [place] DICTATING PHYSICIAN: Mau Nguyen MD REPORT STATUS: [...] April 14, 2020 8:19am Sherie Martinez completed [facility] CAT SCAN REPORT PATIENT NAME: ROCIO [...] April 14, 2020 8:27am Sherie Martinez completed [facility] RADIOLOGY REPORT PATIENT NAME: ROCIO AUGUSTE [...] 14, 2020 3:57pm Mary Vu MD completed [facility] RADIOLOGY REPORT PATIENT NAME: ROCIO AUGUSTE [...] 16, 2020 3:21pm Mary Vu MD completed [facility] CAT SCAN REPORT PATIENT NAME: ROCIO [...] 16, 2020 4:09pm Mary Vu MD completed [facility] ULTRASOUND REPORT PATIENT NAME: ROCIO AUGUSTE 11 003 DATE OF : 1950 ATTENDING/ER PHYSICIAN: Helene [place] MD ER/ATTENDING PHYSICIAN: Mau Nugyen MD PRIMARY CARE PHYS: [place] ADMITTING [...] have a copy on file here at [facility]? No O ctober 2019 9:44pm Pt has a Living Will? No April 13, 2020 9:44pm Do we have a copy on file here at [facility]? No O ctober 2019 9:44pm Pt has a Power of Commissioning Engineer? No March 9:44pm Do we have a copy on file here at [facility]? No O ctober 2019 9:44pm Chief Complaint and Reason for Visit Chief Complaint AMS Fever Amb Documentation Lab [employer]/follow up hospital stay ANAPLAMA,SEPSIS Amb Documentation Office visit Follow Up HLD FOLLOW UP Reason for Visit Anaplasmosis Anaplasmosis HLD (hyperlipidemia) Encounters Encounter Location(s) Arrival/Admit Date Discharge/Depart Provi nik(s) Date Registered April 14, 2020 Isai Figueroa , Outpatient Medical 3:32am Group-Hospitalist s Discharged April 14, 2020 April 19, 2020 Maximilian Griffin Inpatient Medical 5:55am 1:11pm MD Group-Progressive Care Unit Registered [facility] April 21, 2020 Anisa Link Outpatient Medical 2:40pm MADISYN Browne Group-Lifestyle Medicine Departed April 23, 2020 April 23, 2020 Maximilian Griffin Clinical Medical 10:44am 10:45am MD Group-Laboratory Departed April 27, April 27, 2020 Juan Jose Lima Physician/[facility] 2019 3:12pm 4:18pm MD Yara nik Office Group-[facility] Visit n [facility] Registered [facility] April 29, April 30, 2020 Anuradha Bowling Outpatient Medical 2020 9:08pm 7:20pm MD Alexandra Group-Hospitalist s Registered [facility] May 03, Paty Hurt Outpatient Medical Group-AMB 2019 9:41am RN Location Departed [facility] May 04, May 04, 2020 Juan Jose Lima Physician/[facility] 2019 11:47am 12:58pm MD [facility] Departed [facility] June 23, 2020 June 24, 2020 Omero Lima [facility] 8:41am 12:59am MD Yara nik Office Group-[facility] Visit [facility] Departed [facility] September 01, 2020 September 01, 2020 Juan Jose Lima Physician/[facility] 7:38am 10:17am MD Yara nik Office [facility] Visit [facility] Recent Diagnosis Onset Date Anaplasmosis Anaplasmosis HLD (hyperlipidemia) Assessments Diagnosis Onset Date Resolution Status Anaplasmosis acute Anaplasmosis acute HLD (hyperlipidemia) acute Family History Relationship Condition Age at Onset Recorded Date/Ti me Unknown Family History Unknown April 14 5:59am Functional Status Observation Response Date Recorded Clothing Mgt Ability Independent April 14, 2020 3:44am Feeding Ability Independent April 14, 2020 3 :44am Hygiene & Grooming Ability Independent April 14, 2020 3:44am Oral Hygiene Ability Independent April 14, 2020 3:44am Toileting Ability Moderate Assistance April 14, 2020 3 :44am Goals Acute Goals Goals: Return to improved or baseline le josi of mobility Return to prior level of function Immunizations Immunization Event Date Not Given Dose Subsorter Lot Vac cine Reason Number Number Informatio n Statement (VIS) Deta il Influenza High April [id number] Dose Quad 2019 Mental Status Observation Response Date Recorded Comprehension Ability Understands Concepts April 15 0 8:00pm Speech Appropriate April 14, 2020 3 :44am Clear April 14, 2020 3 :44am Medical Equipment No Medical Equipment Information available Insurance Providers Guarantor ROCIO AUGUSTE Address [address] [place] [address] Contact Info. Home Phone: Payer Policy Id Coverage Id Subscriber's Subscriber Id Effective E xpiration Name Date Date MEDICARE [id number] ROCIO AUGUSTE [id number] PART A AND B 42 JR COVERAGE [...] Provider Contact Provider Address Referral Date Information [facility] Work Phone: [phone] [employer] [facility] [phone] Work Phone: [facility] [place] [phone] [employer] [phone] Juan Jose [place] Work Phone: [facility] [place] [phone] [employer] [phone] Future Procedures Future procedure information is unavailable Future Medications Future medication information is unavailable Patient Instructions Fever of Unknown Origin (DC) COVID 19 General Instructions- decrease the spread of coronavirus ([facility]) Ehrlichiosis Infections (DC) COVID 19 General Instructions- decrease the spread of coronavirus ([facility]) Social History Smoking Status Status Date of Observation Never smoked tobacco (finding) September 01, 2020 10:13a m Observation Status Observation Response Date of Response Alcohol Use Yes April 29, 2020 9:17pm alcohol intake frequency holidays/special occasions April 29, 2020 9:17pm only Substance/Street Drug Use No April 29, 2020 9:17pm substance use type does not use April 29, 2020 7:15pm Smoking Status Never smoker September 01, 2020 10: 13am Assigned Sex Male Vital Signs Vital Reading Result Reference Range Collection Date/ Time Height 71 [in_i] April 14 2:41pm Weight 109.60 kg April 14 2:41pm Body Temperature 97.0 [degF] 97.6-99.6 April 19 9:37am Heart Rate 100 /min 60-100 April [...] BP Diastolic 78 mm[Hg] 50-85 April 27, 020 2:23pm BMI (Body Mass Index) 33.9 kg/m2 April 182019 2:23pm Height 71 [in_i] April 29, 020 9:26am Weight 104.00 kg April 29, 020 6:15pm Body Temperature 97.5 [degF] 97.6-99.6 April 30, 2020 3:31pm Heart Rate 92 /min 60-100 April 30 020 3:31pm Respiratory rate 20 /min -April 30, 2020 3:31pm Oxygen saturation by Pulse 99 % 95-100 [facility] 2019 3:31pm oximetry BP Systolic 116 mm[Hg] 100-140 April 30, 020 3:31pm BP Diastolic 72 mm[Hg] 50-85 April 30, 020 3:31pm Height 70.5 [in_i] May 04, 2 020 11:26am Weight 107.50 kg May 04, 020 11:26am Body Temperature 96.4 [degF] 97.6-99.6 May 04, 2020 11:26am Heart Rate 80 /min 60-100 May 04, 2 020 11:26am Respiratory rate 16 /min -May 04, 2020 11:26am BP Systolic 122 mm[Hg] 100-140 May 04, 2 020 11:26am BP Diastolic 82 mm[Hg] 50-85 May 04, 2 020 11:26am BMI (Body Mass Index) 33.5 kg/m2 April 182019 11:26am
--- OUTSIDE RECORDS SUMMARY | 2022-01-19 09:31 | XMS_ITS | Continuity of Care Document ---
:1950 Author Organization [facility] Address [address] [place] [address] Phone Care Team Providers Name Role Phone Reta Isai Admit Provider Helene Griffin Attending Provider Juan [...] Blood November 8.24 4.8-10.8 MAIN LAB , [address] [place] [address] 2019 1000/mm3 [place] [address] 9:54am White Blood November 6.15 4.8-10.8 MAIN LAB , [address] [place] [address] 2019 1000/mm3 [place] [address] 6:21am Red Blood November 5.30 M/mm3 4.70-6.00 MAIN LAB, [address] [place] [address] 2019 [place] [address] 9:54am Red Blood November 4.61 M/mm3 4.70-6.00 MAIN LAB, [address] [place] [address] 2019 [place] [address] 6:21am Hemoglobin April 15.7 g/dL 14.0-18.0 MAIN LAB, [address] [place] [address] 2019 [place] [address] 9:54am Hemoglobin November 13.6 g/dL 14.0-18.0 MAIN LAB, [address] [place] [address] 2019 [place] [address] 6:21am Hematocrit November 47.0 % 42-52 MAIN LAB, [address] [place] [address] 2019 [place] [address] 9:54am Hematocrit November 40.5 % 42-52 MAIN LAB, [address] [place] [address] 2019 [place] [address] 6:21am Mean April 88.7 fL 80.0-94.0 MAIN LAB, [address] [place] [address] [place] [address] Volume 9:54am Mean April 87.9 fL 80.0-94.0 MAIN LAB, [address] [place] [address] [place] [address] Volume 6:21am Mean April 29.6 pg 27-31 MAIN LAB, [address] [place] [address] [place] [address] Hemoglobin 9:54am Mean November 29.5 pg 27-31 MAIN LAB, [address] [place] [address] [place] [address] Hemoglobin 6:21am Mean November 33.4 g/dL 33-37 MAIN LAB, [address] [place] [address] [place] [address] Hemoglobin 9:54am Concent Mean April 33.6 g/dL 33-37 MAIN LAB, [address] [place] [address] [facility] [address] Hemoglobin 6:21am Concent Red Cell April 14.3 % 11.5-14.5 MAIN LAB, [address] [place] [address] [place] [facility] [place] [address] n Width 9:54am Red Cell April 13.8 % 11.5-14.5 MAIN LAB, [address] [place] [address] Distributio , 2019 [facility] [place] [address] n Width 6:21am Platelet April 316 1000/mm3 140-440 MAIN LA B, [address] [place] [address] Count 2019 [place] [address] 9:54am Platelet April 87 1000/mm3 140-440 MAIN LAB , [address] [place] [address] Count 2019 [place] [address] 6:21am Mean April 10.9 fL 7.4-10.4 MAIN LAB, [address] [place] [address] Platelet 2019 [place] [address] Volume 9:54am Mean April 12.6 fL 7.4-10.4 MAIN LAB, [address] [place] [address] Platelet 2019 [place] [address] Volume 6:21am Neutrophils October 81.2 % 40.0-72.0 MAIN LAB , [address] [place] [address] (%) (Auto) 2019 [place] [address] 6:01am Lymphocytes October 11.0 % 17-45 MAIN LAB , [address] [place] [address] (%) (Auto) 2019 . [facility] [place] [address] 6:01am Monocytes October 6.9 % 3-11 MAIN LAB, [address] [place] [address] (%) (Auto) 2019 . [facility] [place] [address] 6:01am Eosinophils October 0.0 % 0-3 MAIN LAB , [address] [place] [address] (%) (Auto) 2019 . [facility] [place] [address] 6:01am Basophils October 0.3 % 0-1 MAIN LAB, [address] [place] [address] (%) (Auto) 2019 . [facility] [place] [address] 6:01am Immature October 0.6 % 0-1 MAIN LAB, [address] [place] [address] [place] [address] % (Auto) 6:01am Neutrophils October 2.72 1.4-6.5 MAIN LAB , [address] [place] [address] # (Auto) 2019 1000/[place]3 [place] [address] 6:01am Lymphocytes October 0.37 1.2-3.4 MAIN LAB , [address] [place] [address] # (Auto) 2019 1000/[place]3 [place] [address] 6:01am Monocytes # October 0.23 0.0-0.8 MAIN LAB , [address] [place] [address] (Auto) 2019 1000/[place]3 [place] [address] 6:01am Eosinophils October 0.00 0.0-0.7 MAIN LAB , [address] [place] [address] # (Auto) 2019 1000/[place]3 [place] [address] 6:01am Basophils # October 0.01 0.0-0.1 MAIN LAB , [address] [place] [address] (Auto) 2019 1000/[place]3 [place] [address] 6:01am Absolute October 0.0 0-1 MAIN LAB, [address] [place] [address] [place] [address] Granulocyte 6:01am (auto Differentia October Automated MAIN LAB , [address] [place] [address] [place] [address] 6:01am Platelet October Clumped, MAIN LAB, [address] [place] [address] [place] [address] 5:12am Platelet March 2+ MAIN LAB, [address] [place] [address] Clumps, 2019 [place] [address] EDTA 5:12am Differentia October See comments Mild MAIN LAB, [address] [place] [address] [place] [address] Pathologist 6:01am and new onset 's Review thrombocytopen ia. Laboratory data reviewed. Suggest consideration with hepatitis viral serologies and further image analysis(CT of abdomen) if clinically indicated.Smea r reviewed by pathologist for research quality assurance specialist.Jabari Feliz MD04/16/20 Erythrocyte March 2 mm/hr 0-30 MAIN LAB , [address] [place] [address] [place] [address] on Rate 8:45pm Urine RBC March 0-2 /hpf MAIN LAB, [address] [place] [address] [place] [address] 7:27pm Urine WBC March None seen MAIN LAB, [address] [facility] [address] /[place] [address] 7:27pm Urine March None seen NONE SEEN MAIN LAB, [address] [facility] Bacteria 2019 /[place] [address] 7:27pm Urine Mucus March Present MAIN LAB , [address] [facility] [address] [place] [address] 7:27pm Ur March Negative Negative Presumptive [facility] ICA Streptococc 2019 negative for LABO RATORIES us 10:00pm pneumococcal pneumoniae pneumonia, Antigen suggestingno current or recent infection. Infection due to S.pneumoniae cannot be ruled out since the antigen present inthe sample may be below detection limit of the test.--------- PILO TIONAL INFORMATION--- --This assay was performed using the FDA-cleared BinaxNOWStrept ococcus pneumoniae Antigen test, a rapidimmunochr omatographic assay.Test Performed by:[address] Director: Ford Hector M.D. Ph.D.; CLIA# [id number] Urine March Negative Negative Presumptive [facility] Legionella 2019 negative for LABOR ATORIES Antigen 10:00pm L. pneumophila serogroup 1antigen, suggesting no recent or current infection.Infe ction due to Legionella cannot be ruled out since otherserogroup s and species may cause disease, antigen may notbe present in urine in early infection, and the level ofantigen present in the urine may be below the detectionlimit of the test.--------- PILOACSIAN INFORMATION--- --This assay was performed using the FDA-cleared BinaxNOWLegion nakul Urinary Antigen Test, a rapidimmunochr omatographic assay.Test Performed by:[address] Director: Ford Hector M.D. Ph.D.; CLIA# [id number] Sodium November 137 mmol/L 137-145 MAIN LAB, [address] [place] [address] 2019 [facility] [address] 9:54am Sodium November 138 mmol/L 137-145 MAIN LAB, [address] [place] [address] 2019 [facility] [address] 6:21am Potassium November 4.9 mmol/L 3.6-5.0 MAIN LAB, [address] [place] [address] 2019 [facility] [address] 9:54am Potassium November 3.7 mmol/L 3.6-5.0 MAIN LAB, [address] [place] [address] 2019 [facility] [address] 6:21am Chloride November 105 mmol/L 98-107 MAIN LAB, [address] [place] [address] 2019 [facility] [address] 9:54am Chloride November 107 mmol/L 98-107 MAIN LAB, [address] [place] [address] 2019 [facility] [address] 6:21am Carbon November 23 mmol/L 22-30 MAIN LAB, [address] [place] [address] Dioxide 2019 [facility] [address] Level 9:54am Carbon November 26 mmol/L 22-30 MAIN LAB, [address] [place] [address] Dioxide 2019 [facility] [address] Level 6:21am Anion Gap November 9 7-16 MAIN LAB, [address] [place] [address] 2019 [facility] [address] 9:54am Anion Gap April 5 7-16 MAIN LAB, [address] [place] [address] 2019 [facility] [address] 6:21am Blood Urea November 13 mg/dL 8-26 MAIN LAB, [address] [place] [address] Nitrogen 2019 [facility] [address] 9:54am Blood Urea November 10 mg/dL 8- MAIN LAB, [address] [place] [address] Nitrogen 2019 [facility] [address] 6:21am Creatinine November 0.68 mg/dL 0.66-1.25 MAIN LAB , [address] [place] [address] 2019 [facility] [address] 9:54am Creatinine November 0.56 mg/dL 0.66-1.25 MAIN LAB , [address] [place] [address] 2019 [facility] [address] 6:21am Glomerular November > 60 mL/min >60.0 MAIN LA B, [address] [place] [address] Filtration 2019 [facility] [address] Rate Calc 9:54am Glomerular November > 60 mL/min >60.0 MAIN LA B, [address] [facility] Filtration 2019 [facility] [address] Rate Calc 6:21am Glucose April 115 mg/dL 70-100 MAIN LAB, [address] [place] [address] 2019 [facility] [address] 9:54am Glucose April 87 mg/dL 70-100 MAIN LAB, [address] [place] [address] 2019 [facility] [address] 6:21am Calcium April 9.1 mg/dL 8.4-10.2 MAIN LAB, [address] [place] [address] 2019 [facility] [address] 9:54am Calcium April 7.9 mg/dL 8.4-10.2 MAIN LAB, [address] [place] [address] 2019 [facility] [address] 6:21am Calcium April 9.3 mg/dL 8.4-10.2 MAIN LAB, [address] [place] [address] Adjusted 2019 [facility] [address] for Albumin 9:54am Calcium April 9.0 mg/dL 8.4-10.2 MAIN LAB, [address] [place] [address] Adjusted 2019 [facility] [address] for Albumin 6:21am Phosphorus March 2.8 mg/dL 2.5-4.5 MAIN LAB, [address] [place] [address] 2019 [facility] [address] 11:00pm Magnesium March 1.9 mg/dL 1.6-2.3 MAIN LAB, [address] [place] [address] 2019 [facility] [address] 11:00pm Total November 0.9 mg/dL 0.2-1.3 MAIN LAB, [address] [place] [address] Bilirubin 2019 [facility] [address] 9:54am Total November 1.0 mg/dL 0.2-1.3 MAIN LAB, [address] [place] [address] Bilirubin 2019 [facility] [address] 6:21am Direct October 0.0 mg/dL 0-0.3 MAIN LAB, [address] [place] [address] Bilirubin 2019 [facility] [address] 8:45pm Aspartate April 122 U/L 17-59 MAIN LAB, [address] [place] [address] Amino 2019 [facility] [address] Transf 9:54am (AST/SGOT) Aspartate April 212 U/L 17-59 MAIN LAB, [address] [facility] Amino 2019 [facility] [address] Transf 6:21am (AST/SGOT) Alanine April 163 U/L <50 As of 10/17/19, MAIN L AB, [address] [facility] Aminotransf 2019 the Reference [facility] [address] erase 9:54am Range for (ALT/SGPT) ALT/SGPT for adult patients has been updated. The Reference Range for ALT/SGPT has not been established for patients <18 years of age. Alanine April 143 U/L <50 As of 10/17/19, MAIN L AB, [address] [facility] Aminotransf 2019 the Reference [facility] [address] erase 6:21am Range for (ALT/SGPT) ALT/SGPT for adult patients has been updated. The Reference Range for ALT/SGPT has not been established for patients <18 years of age. Lactic Acid March 3.6 mmol/L 0.7-2.1 MAIN LA B, [address] [facility] Level 2019 [place] [place] [address] 6:01am Lactate April 831 U/L 313-618 Note: LDH MAIN LAB, [address] [place] [address] De[address]a [address] [facility] [address] se 9:54am be decreased upon refrigerated or frozen storage. Lactate April 1103 U/L 313-618 Note: LDH MAIN LAB, [address] [place] [address] Dehydrogena 2019 activity [place] [address] se 6:21am be decreased upon refrigerated or frozen storage. Creatine April 667 U/L 55-170 MAIN LAB, [address] [place] [address] Kinase 2019 [place] [address] 6:21am Total November 7.5 g/dL 6.3-8.2 MAIN LAB, [address] [place] [address] Protein 2019 [place] [address] 9:54am Total November 5.8 g/dL 6.3-8.2 MAIN LAB, [address] [place] [address] Protein 2019 [place] [address] 6:21am Albumin April 4.0 g/dL 3.5-5.0 MAIN LAB, [address] [place] [address] 2019 [place] [address] 9:54am Albumin April 2.9 g/dL 3.5-5.0 MAIN LAB, [address] [place] [address] 2019 [place] [address] 6:21am Cholesterol March 232 mg/dL 59-199 MAIN LAB , [address] [place] [address] 2019 [place] [place] [address] 11:00pm HDL March 29 mg/dL 40-60 [facility] MAIN LA B, [address] [place] [address] Cholesterol 2019 Cholesterol [place] [address] 11:00pm Education Program (NCEP) has set the following guidelines (reference values) for cholesterol, HDL:Low HDL: <40 mg/dLNormal: 40-60 mg/dLDesirable : >60 mg/dL LDL March 182.6 mg/dL 0-129 MAIN LAB , [address] [place] [address] Cholesterol 2019 [facility] [address] 11:00pm VLDL March 20.4 mg/dL 0-32 MAIN LAB, [address] [place] [address] Cholesterol 2019 [place] [address] 11:00pm Cholesterol March 8.00 0-3.9 MAIN LAB , [address] [place] [address] /HDL Ratio 2019 [place] [address] 11:00pm Triglycerid March 102 mg/dL 0-149 MAIN LAB , [address] [place] [address] es Level 2019 [facility] [place] [address] 11:00pm Alkaline April 214 U/L 38-126 MAIN LAB, [address] [place] [address] Phosphatase 2019 [place] [address] 9:54am Alkaline April 155 U/L 38-126 MAIN LAB, [address] [place] [address] Phosphatase 2019 [facility] [address] 6:21am Thyroid March 1.73 mlU/L 0.47-4.68 The results of MAIN LAB, [address] [place] [address] Stimulating 2019 this assay can [facility] [address] Hormone 11:00pm be falsely (TSH) decreased in patients who consume Biotin. Hemoglobin March 5.08 % <5.7 <5.7%: MAIN LAB, [address] [place] [address] A1c Percent 2019 Normal5.7%-6.4 [facility] [address] 5:45pm %: Prediabetes>=6 .5%: Diagnostic for diabetesGoals for Glycemic Control in Diabetes (ADA 2018)<7.0%: A1c target for non adults with diabetes. More or less stringent glycemic goals may be appropriate for individual patients.<7.5% : A1c target for children and adolescents with type I diabetes. A lower goal is reasonable if it can be achieved without excessive hypoglycemia. Estimated October 99 mg/dL MAIN LAB, [address] [facility] [address] [place] [address] Glucose 5:45pm mg/dL C-Reactive March 245.8 mg/L 5-10 MAIN LAB , [address] [facility] Protein [address] [place] [address] 8:45pm Influenza March Negative Negative MAIN LAB, [address] [facility] Type A [address] [place] [address] (RT-PCR) 6:30pm Influenza March Negative Negative MAIN LAB, [address] [facility] Type B [address] [place] [address] (RT-PCR) 6:30pm Respiratory March Negative Negative MAIN LAB , [address] [facility] Syncytial [address] [place] [address] Virus 6:30pm (RT-PCR Herpes March Negative [facility] Simplex 2019 LABORATOR IES Virus I DNA 8:45pm (PCR) Herpes March Negative [facility] Simplex 2019 LABORATOR IES Virus II 8:45pm DNA (PCR) Varicella-Z March Not [facility] ICAL tony 2019 Reportable LABORATO JULIO Specimen 8:45pm Descript Varicella-Z March Negative [facility] ICAL tony Virus 2019 LABORAT ORIES DNA (PCR) 8:45pm Coronavirus March Negative Negative This test has [facility] 2019 PCR 2019 not been FDA LABORA TORIES Interp 6:13pm cleared or approved. This testhas been authorized by FDA under an EUA for use byauthorized laboratories. This test has been authorized onlyfor detection of nucleic acid from 2018-, not for anyother viruses or pathogens. This test is only authorizedfor the duration of the declaration that circumstancese xist justifying the authorization of emergency use of invitro diagnostic tests for detection and/or diagnosis [id number] under section 564(b)(1) of Act, 21 U.S.C ?360bbb-3(b) (1), unless the authorization is terminated orrevoked sooner.Negativ e results do not preclude 2019-nCoV infection andshould not be used as the sole basis for treatment or otherpatient management decisions. Negative results must becombined with clinical observations, patient history, andepidemiolog ical information.Pe rformed on the [employer] Laotto Fusion instrument Reference March Laotto Please [facility] Lab Test 2019 [facility] lab indicate the YASIR MCKEON Performing 6:13pm Triage Site [id number] performed or referred by[address] [address] CSF March Clear MAIN LAB, [address] [place] [address] [place] [address] 8:45pm CSF Color March Colorless MAIN LAB, [address] [place] [address] [place] [address] 8:45pm CSF Volume March 14 mL MAIN LAB, [address] [place] [address] [place] [address] 8:45pm Body Fluid March 4 MAIN LAB, [address] [place] [address] [place] [address] Tubes 8:45pm CSF WBC March 3 0-5 Cell Count MAIN LAB, [address] [place] [address] [place] [address] 8:45pm tube number 4 Cell Count performed on tube number 4 CSF RBC March 2 0-9 Cell Count MAIN LAB, [address] [place] [address] [place] [address] 8:45pm tube number 4 Cell Count performed on tube number 4 CSF Glucose March 60 mg/dL 40-70 MAIN LAB , [address] [place] [address] [place] [address] 8:45pm CSF Total March 70 mg/dL 12-60 MAIN LAB, [address] [place] [address] [place] [address] 8:45pm Babesia March Negative Negative [facility] microti DNA 2019 LABORAT ORIES (PCR) 7:00am Babesia March Negative Negative [facility] duncani DNA 2019 LABORAT ORIES (PCR) 7:00am Babesia March Negative Negative [facility] divergens/M 2019 -----ADDITIONA LA BORATORIES O-1 (PCR) 7:00am L INFORMATION--- --This test was developed and its performance characteristic sdetermined by [facility] in a manner consistent with CLIArequiremen ts. This test has not been cleared or approved bythe U.S. Food and Drug Administration . Anaplasma March Positive Negative [facility] phagocytoph 2019 LABORAT ORIES davon DNA 7:00am (PCR) Ehrlichia March Negative Negative [facility] chaffeensis 2019 LABORAT ORIES DNA (PCR) 7:00am Ehrlichia March Negative Negative [facility] ewingii/can 2019 LABORAT ORIES is (PCR) 7:00am Ehrlichia March Negative Negative [facility] muris-like 2019 -----ADDITIONA LAB ORATORIES DNA (PCR) 7:00am L INFORMATION--- --This test was developed and its performance characteristic sdetermined by [facility] in a manner consistent with CLIArequiremen ts. This test has not been cleared or approved bythe U.S. Food and Drug Administration . Borrelia March Negative Negative [facility] miyamotoi 2019 -----ADDITIONA LABO RATORIES (PCR) 7:00am L INFORMATION--- --This test was developed and its performance characteristic sdetermined by [facility] in a manner consistent with CLIArequiremen ts. This test has not been cleared or approved bythe U.S. Food and Drug Administration .Test Performed by:[facility] - [address] [address] Director: Ford Hector M.D. Ph.D.; CLIA# [id number] Urine March Negative Cutoff:200 MAIN LAB, [address] [facility] Methadone 2019 ng/[place] [address] Screen 7:27pm Venous March 7.43 pH 7.31-7.41 MAIN LAB, [address] [facility] Blood pH 2019 [place] [address] 5:45pm Venous March 39 mmHg 41-51 MAIN LAB, [address] [facility] Blood pCO2 2019 [place] [address] at Patient 5:45pm Temp Venous March 25.8 mmol/L 23-30 MAIN LAB , [address] [facility] Blood HCO3 2019 [place] [address] 5:45pm Venous March 1.0 mmol/L -2.0-2.0 MAIN LAB, [address] [place] [address] [place] [address] Excess 5:45pm Microbiology Results Procedure Source Result Collection Result Result Performin g Date/Time Date/Time Comment Site Blood Culture Blood, Left NO GROWTH April 15April MAIN LAB, [address] [place] [address] Antecubital AFTER 2019 9:50pm 2019 [place] [address] DAYS 7:26am Urine Culture Ur,Clean Catch April 13March MAIN LAB, [address] [place] [address] 2019 8:27pm [address] [place] [address] 8:39am Gram Stain Csf April 13March MAIN LAB, [address] [place] [address] 2019 9:45pm 2019 [place] [address] 5:13am CSF Culture Csf NO GROWTH April 13March [facility], [address] [place] [address] AFTER 72 2019 9:45pm 2019 [place] [address] HOURS 8:47am Diagnostic Imaging Reports Report Dictated Date/Time Dictated By Status Electrocardiogram April 13, 2020 6:51pm Jet Buck MD completed [facility] EKG PATIENT NAME: ROCOI AUGUSTE 003 DATE OF : 1950 ATTENDING [...] 04/13/2020 7:08:34 PM Referred By: Arnel Buck [facility] med By:John Buck 04/13/20 1908 Electrocardiogram April 14, 2020 2:23am Mau Nguyen MD completed [facility] EKG PATIENT NAME: ROCIO AUGUSTE [id number] DATE OF : 1950 ATTENDING PHYSICIAN: PRIMARY [...] April 14, 2020 8:19am Sherie Martinez completed [facility] CAT SCAN REPORT PATIENT NAME: [...] April 14, 2020 8:27am Sherie Martinez completed [facility] RADIOLOGY REPORT PATIENT NAME: ROCIO [...] 14, 2020 3:57pm Mary Vu MD completed [facility] RADIOLOGY REPORT PATIENT NAME: ROCIO [...] 16, 2020 3:21pm Mary Vu MD completed [facility] CAT SCAN REPORT PATIENT NAME: [...] 16, 2020 4:09pm Mary Vu MD completed [facility] ULTRASOUND REPORT PATIENT NAME: ROCIO [...] have a copy on file here at [facility]? No O ct2019 8:44pm Pt has a Living Will? No April 13, 2020 8:44pm Do we have a copy on file here at [facility]? No O ctober 2019 8:44pm Pt has a Power of Sock Lining Stitcher? No March 8:44pm Do we have a copy on file here at [facility]? No O ctober 2019 8:44pm Chief Complaint and Reason for Visit Chief Complaint AMS Fever Amb Documentation Lab Reason for Visit Acute encephalopathy Altered mental [...] [facility] 9:44am 9:45am MD Center-Laboratory Recent Diagnosis Onset Date Acute encephalopathy Altered [...] available Insurance Providers Guarantor ROCIO AUGUSTE Address [address] [place] [id number] Contact Info. Home Phone: Payer Policy Id Coverage Id Subscriber's Subscriber Id Effective E xpiration Name Date Date MEDICARE [id number] ROCIO AUGUSTE [id number] PART A AND B 42 COVERAGE SELF PAY Self N/A Plan of Treatment Future Tests Future scheduled test information is unavailable Pending Tests Pending diagnostic test information is unavailable Future Visits Future appointment information is unavailable Referrals to Other Providers Reason for Referral Start Provider Provider Contact Provider Address Referral Date Information [facility] Work Phone: [phone] [facility] [place] [address] Juan Jose Livingston Work Phone: [facility] , [place] [address] [place] [address] Future Procedures Future procedure information is unavailable Future Medications Future medication information is unavailable Patient Instructions Fever of Unknown Origin (DC) COVID 19 General Instructions- decrease the spread of coronavirus ([facility]) Social History Smoking Status Status Date [...] Body Temperature 97.0 [degF] 97.6-99.6 April 19 2 020 9:37am Heart Rate 100 /min 60-100 April 19 9:37am Respiratory rate 19 /min 12-April 19 2 020 9:37am Oxygen saturation by Pulse 97 % 95-100 2019 9:37am oximetry BP Systolic 148 mm[Hg] 100-140 April 19 9:37am BP Diastolic 84 mm[Hg] 50-85 April 19 9:37am BMI (Body Mass Index) 33.7 kg/m2 April 142019 2:41pm
[2022-01-26] MEDS: Normal Saline Flush 10 ML SYR IVP (07:39)
[2022-01-26 07:46] LABS: Abs Immature Grans 0.05 10^3/uL (0.0-0.06); Absolute Basophil Count 0.02 10^3/uL (0.0-0.2); Absolute Eosinophil Count 0.01 10^3/uL (0.0-0.7); Absolute Lymphocyte Count 0.59 10^3/uL (1.2-3.4); Absolute Monocyte Count 0.44 10^3/uL (0.1-0.8); Absolute Neutrophil Count 9.02 10^3/uL (1.2-6.7); Basophils % 0.2; Eosinophils % 0.1; HCT 39.1 % (40.0-50.0); Immature Grans % 0.5; Lymphocytes % 5.8; MCH 26.4 pg (27.0-33.0); MCHC 30.7 % (32.0-36.0); MCV 86 fL (80-95); Monocytes % 4.3; Neutrophils % 89.1; Platelet Count 238 10^3/uL (130-400); RBC 4.54 10^6/uL (4.36-5.78); RDW 16.6 % (11.8-14.1); RDW-SD 52.4 fL; WBC 10.13 10^3/uL (4.4-10.8)
[2022-01-26 08:10] LABS: ALT 21 U/L (16-63); AST 37 U/L (15-37); Albumin 2.5 g/dL (3.4-5.0); Alkaline Phosphatase 181 U/L (46-116); Anion Gap 5.6 mmol/L (3-11); BUN 13 mg/dL (7-18); Bilirubin, Total 0.5 mg/dL (0.2-1.0); CO2 29.4 mmol/L (21.0-32.0); CREATININE 0.9 mg/dL (0.70-1.30); Calcium 8.4 mg/dL (8.5-10.1); Chloride 103 mmol/L (98-107); FREE T4 1.26 ng/dL (0.76-1.46); Glucose 142 mg/dL (74-106); Sodium 138 mmol/L (136-145); TSH 2.61 uIU/mL (0.36-3.74); Total Protein 6.4 g/dL (6.4-8.2)
[2022-02-09] MEDS: Normal Saline Flush 10 ML SYR IVP (07:18)
[2022-02-09 07:31] LABS: Abs Immature Grans 0.07 10^3/uL (0.0-0.06); Absolute Basophil Count 0.01 10^3/uL (0.0-0.2); Absolute Eosinophil Count 0.02 10^3/uL (0.0-0.7); Absolute Monocyte Count 0.57 10^3/uL (0.1-0.8); Absolute Neutrophil Count 7.98 10^3/uL (1.2-6.7); Basophils % 0.1; Eosinophils % 0.2; HCT 38.7 % (40.0-50.0); HGB 11.9 g/dL (13.5-17.5); Immature Grans % 0.7; Lymphocytes % 7.5; MCH 26.6 pg (27.0-33.0); MCHC 30.7 % (32.0-36.0); MCV 86 fL (80-95); MPV 8.8 fL (8.0-11.0); Monocytes % 6.1; Neutrophils % 85.4; Platelet Count 217 10^3/uL (130-400); RBC 4.48 10^6/uL (4.36-5.78); RDW-SD 51.4 fL; WBC 9.35 10^3/uL (4.4-10.8)
[2022-02-09 07:48] LABS: ALT 17 U/L (16-63); AST 39 U/L (15-37); Albumin 2.5 g/dL (3.4-5.0); Alkaline Phosphatase 225 U/L (46-116); Anion Gap 5.9 mmol/L (3-11); BUN 14 mg/dL (7-18); Bilirubin, Total 0.5 mg/dL (0.2-1.0); CO2 30.1 mmol/L (21.0-32.0); CREATININE 0.8 mg/dL (0.70-1.30); Calcium 8.6 mg/dL (8.5-10.1); Chloride 103 mmol/L (98-107); Glucose 130 mg/dL (74-106); Potassium 4.2 mmol/L (3.5-5.1); Sodium 139 mmol/L (136-145); Total Protein 6.6 g/dL (6.4-8.2)
== END 2022-02-15 23:59 | disposition home or self-care (01) ==
LOC: INF 02:35
PROVIDERS: Visit Provider Internal Medicine Hematology & Oncology
DX: C15.5 Malignant neoplasm of lower third of esophagus (principal); Z45.2 Encounter for adjustment and management of vascular access device; C34.91 Malignant neoplasm of unspecified part of right bronchus or lung; E03.2 Hypothyroidism due to medicaments and other exogenous substances
CPT/HCPCS: 36591; 80053; 84439; 84443; 85025

== ENCOUNTER 2022-03-02 03:15 | Outpatient (RCR) | payer MEDICARE, SELFPAY ==
[2022-02-23] MEDS: Normal Saline Flush 10 ML SYR IVP (08:04)
[2022-02-23 08:09] LABS: Abs Immature Grans 0.04 10^3/uL (0.0-0.06); Absolute Basophil Count 0.01 10^3/uL (0.0-0.2); Absolute Eosinophil Count 0.02 10^3/uL (0.0-0.7); Absolute Lymphocyte Count 0.81 10^3/uL (1.2-3.4); Absolute Monocyte Count 0.41 10^3/uL (0.1-0.8); Basophils % 0.1; Eosinophils % 0.2; HCT 38.5 % (40.0-50.0); HGB 11.9 g/dL (13.5-17.5); Immature Grans % 0.5; Lymphocytes % 9.9; MCH 26.6 pg (27.0-33.0); MCHC 30.9 % (32.0-36.0); MCV 86 fL (80-95); MPV 9.1 fL (8.0-11.0); Neutrophils % 84.3; Platelet Count 249 10^3/uL (130-400); RBC 4.47 10^6/uL (4.36-5.78); RDW 16.9 % (11.8-14.1); RDW-SD 51.5 fL; WBC 8.19 10^3/uL (4.4-10.8)
[2022-02-23 08:25] LABS: ALT 17 U/L (16-63); AST 28 U/L (15-37); Albumin 2.2 g/dL (3.4-5.0); Alkaline Phosphatase 198 U/L (46-116); Anion Gap 6.1 mmol/L (3-11); BUN 13 mg/dL (7-18); Bilirubin, Total 0.7 mg/dL (0.2-1.0); CO2 29.9 mmol/L (21.0-32.0); CREATININE 0.8 mg/dL (0.70-1.30); Calcium 8.4 mg/dL (8.5-10.1); Chloride 103 mmol/L (98-107); Estimated GFR 95.21 (mL/min/1.73m2); Glucose 130 mg/dL (74-106); Potassium 4.4 mmol/L (3.5-5.1); Sodium 139 mmol/L (136-145); Total Protein 6.4 g/dL (6.4-8.2)
== END 2022-03-17 23:59 | disposition home or self-care (01) ==
LOC: INF 03:15
PROVIDERS: PCP Internal Medicine; Visit Provider Internal Medicine Hematology & Oncology
DX: C15.5 Malignant neoplasm of lower third of esophagus (principal); E03.2 Hypothyroidism due to medicaments and other exogenous substances; Z45.2 Encounter for adjustment and management of vascular access device
CPT/HCPCS: 36591; 80053; 85025